=== PATIENT | female | born 1955 | race Caucasian/White ===

== ENCOUNTER 2017-10-16 14:35 | Observation (INO) | payer MEDICARE, SELFPAY ==
[2017-10-16] VITALS (8 sets, daily range): BP systolic 98–144; BP diastolic 62–87; PULSE 59–95; RESP 16–20; TEMP 36.5–36.8; O2SAT 97–100; BMI 42.8; BMI 40.8
[2017-10-16 14:51] LABS: Bedside Glucose 57 mg/dL (70-110)
--- NOTE | 2017-10-16 15:07 | ED.DCSUM_ITS ---
- ER Visit Summary Date of Service: 10/16/17 Chief Complaint: Altered mental status History of Present Illness: The patient is a 62 F who was seen by her home health nurse this morning. When the nurse called her back this afternoon she had slurred speech. The nurse then called 911. EMS arrived and the found the patient in a chair alert and talking to them. Blood sugar was 62. They gave oral glucose and her sugar actually dropped to 47. Patient is having a difficult time telling me anything that is going on. She states that a week and a half ago she lost her voice. Physical Examination: Afebrile vital signs are stable Gen: Well-nourished well-developed morbidly obese Head: Normocephalic atraumatic Eyes: Perrl EOMI ENT: TMs clear no rhinorrhea moist mucous membranes Neck: Supple no lymphadenopathy no JVD nontender CVS: Regular rate rhythm no murmurs normal S1-S2 Respiratory: No distress clear to auscultation bilaterally chest nontender Abdomen: Soft nontender nondistended normal bowel sounds no masses Back: Nontender Extremity: Nontender no edema Skin: Normal color no rash Neuro: alert disorientated. Patient responds to voice. Patient quickly falls asleep. She has slurred speech. She moves all 4 extremities. Test Results: [] Emergency Department Course and Treatment: IV was established by nursing and she was given D50. Impression: 1. Diabetic hypoglycemia This note was generated with [employer] dictation software. It may contain incorrect words, spelling, and punctuation that were not noted in review of the chart prior to signing ED Disposition - Plan for ED Patient: Chief Complaint: Alt LOC Referrals: Bhupendra Oliveira MD [Primary Care Provider] -
[2017-10-16] MEDS: Dextrose 50%-Water 25 GM/50 ML DISP.SYRIN IV (15:09)
[2017-10-16 15:31] LABS: Bedside Glucose 200 mg/dL (70-110)
[2017-10-16 16:16] LABS: Bedside Glucose 107 mg/dL (70-110)
--- NOTE | 2017-10-16 16:21 | CT_ITS ---
STUDY: CT BRAIN WITHOUT CONTRAST REASON FOR EXAM: Female, 62 years old. Slurred speech, low blood sugar. Hx hypertension, diabetes, CVA, cervical cancer. RADIATION DOSAGE (If Supplied By Facility): CTDIvol = ( 44.99 ) mGy, DLP = ( 745.49 ) mGycm TECHNIQUE: Transaxial CT imaging of the brain was performed without administration of intravenous contrast material. Individualized dose optimization techniques were used for this CT. COMPARISON: May 12, 2017, August 27, 2016 FINDINGS: Normal soft tissue structures. Normal calvarium. There is mild cerebral atrophy with widening of the extra-axial spaces and ventricular dilatation. There are areas of decreased attenuation within the white matter tracts of the supratentorial brain, consistent with microvascular disease changes. Normal basal ganglia and thalami. Normal brainstem. Normal cerebellum. There is no intracranial hemorrhage. There are no findings of an acute ischemic infarction. Mucoperiosteal thickening is noted in the right maxillary antrum and in posterior ethmoid air spaces on the right. It appears there has been a prior ostiomeatal complex resection. I note in the right nasal airway it appears that there is a stent. Clinical correlation recommended. This measures approximately 2.2 cm in length as seen on image #16 series 4. Bilateral sphenoid sinus with periosteal thickening noted. Partial opacity is noted in the right mastoid airspace and middle ear cavity. CT/Brain/Head without Contrast IMPRESSION: Chronic involutional changes of the brain. Sinus disease. It appears that there is a stent in the right nasal cavity, clinical correlation recommended. It was present previously dating at least back to August 27, 2016. Electronically Signed: Gin Ardon MD at 17:10 EST Tel , Service support ,
[2017-10-16 16:24] LABS: Absolute Lymphocyte Count 1.19 X10^3/ul (0.83-4.51); Absolute Neutrophil Count 4.4 X10^3/uL (2.0-7.7); Basophil# 0.02 X10^3/uL; Basophil% 0.3 % (0-1); Eosinophil# 0.35 X10^3/uL; Eosinophils% 5.1 % (0-5); Hematocrit 40.4 % (37-47); Hemoglobin 12.6 g/dl (12.0-15.0); Lymphocyte # 1.19 X10^3/ul (4.0); Lymphocyte % 17.2 % (19-41); Mean Corp Hgb Conc 31.2 g/gl (32-36); Mean Corpuscular Hgb 30.1 pg (27.0-32.0); Mean Corpuscular Volume 96.4 fL (81-99); Mean Platelet Vol. 10.8 fl (6.2-12.0); Monocyte# 0.87 X10^3/uL; Monocyte% 12.6 % (0-10); Neutrophil # 4.44 X10^3/uL (2.7-7.7); Neutrophil % 64.4 % (47-70); Platelet Count 262 K/mm3 (150-450); RBC Distribution Width CV 15.1 % (11.6-14.6); RBC Distribution Width SD 52.9 fl (35.1-43.9); Red Blood Count 4.19 M/mm3 (4.2-5.4); White Blood Count 6.9 K/mm3 (4.4-11.0)
[2017-10-16 16:35] LABS: ALB/GLOB Ratio 0.7 RATIO (0.9-2.4); AST(SGOT) 19 U/L (15-37); Alanine Aminotransfer ALT/SGPT 16 U/L (12-78); Albumin, Serum 3.2 g/dL (3.4-5.0); Alkaline Phosphatase 46 U/L (45-117); Anion Gap 7 (5-15); BUN 9 mg/dL (7-18); BUN/Creat Ratio 11.7 RATIO (10-20); Calcium,Total 8.8 mg/dL (8.5-10.1); Chloride 101 mmol/L (98-107); Creatinine, Serum 0.77 mg/dL (0.55-1.02); EST Glomerular Filtration Rate 81 mL/min (>60); Est Glom Filt Rate - Afr Amer 98 mL/min (>60); Estimated Creatinine Clearance 59.91 ml/min; Globulin 4.6 g/dL (2.2-4.2); Glucose 59 mg/dL (70-110); Potassium 3.3 mmol/L (3.5-5.1); Protein, Total 7.8 g/dL (6.4-8.2); Sodium Level 144 mmol/L (136-145)
--- NOTE | 2017-10-16 16:46 | ED.RN ---
PT'S SON JACLYN UPDATED ON PT'S CONDITION, PERMISSION GIVEN FROM PT TO SPEAK TO SON.
[2017-10-16] MEDS: Dext 5%-0.45% NS 1,000 ML 150 ML IV (16:56)
[2017-10-16 17:01] LABS: POSITIVE COUNT NO; POSITIVE DIFFERENTIAL NO; POSITIVE MORPHOLOGY NO
[2017-10-16 17:31] LABS: Bedside Glucose 77 mg/dL (70-110)
--- NOTE | 2017-10-16 17:52 | ED.RN ---
D5 0.45% NS RATE INCREASED TO 200ML/HR PER MD AFTER BLOOD GLUCOSE OF 77. PT SITTING UP IN BED EATING SANDWICH, YOGURT, COOKIES.
[2017-10-16 18:41] LABS: Bedside Glucose 123 mg/dL (70-110)
--- NOTE | 2017-10-16 18:50 | ED.RN ---
[facility] [phone], PLEASE CALL FOR ANY QUESTIONS
--- NOTE | 2017-10-16 19:39 | NURSING ---
Pt does not know medications. Pt's son to bring in med list tonight.
--- NOTE | 2017-10-16 20:33 | PCM.HP.STD ---
Problem List (1) Acute metabolic encephalopathy due to hypoglycemia Status: Acute (2) Acute hypoglycemia Status: Acute (3) Diabetes mellitus type 2 in obese Status: Chronic (4) Coronary arteriosclerosis Status: Chronic Comment: cath 05/2015 mild-moderate disease medical therapy recommended (5) Hypothyroidism Status: Chronic (6) Hyperlipemia Status: Chronic (7) GERD (gastroesophageal reflux disease) Status: Chronic (8) Hypertension Status: Chronic (9) COPD (chronic obstructive pulmonary disease) Status: Chronic (10) Chronic respiratory insufficiency Status: Chronic Comment: On home oxygen at night (11) S/P PTCA (percutaneous transluminal coronary angioplasty) Status: Chronic (12) PARESH (obstructive sleep apnea) Status: Chronic (13) COPD with moderate acute bronchitis Status: Acute History of Present Illness Date of Admission: 10/16/17 Chief Complaint: Hypoglycemia slurred speech. Cough mild short of breath The patient is a 62 year old F with multiple comorbidities including COPD, diabetes mellitus type 2, coronary artery status post stent in 2003, and other comorbidities came to ER with slurred speech and hypoglycemia. This slurred speech was found by the home health nurse and she called 911. EMS found her blood sugar 62. Oral mucosa given blood sugar dropped to 47. Furthermore, patient is having hypoglycemia episodes for last 1-2 weeks has never been doing so that low. Besides that, patient is also mild short of breath and having cough for last 3-4 weeks. She has history of COPD. She had chest x-ray by her PCP and was told no pneumonia but was given Levaquin probably thinking of bronchitis. Denies fever or chills, chest tightness, chest pain or syncope. [] In ED, BMP blood sugar source 59, and after that D50, blood sugar went up to 100 than dropped further to 77. Most recent blood sugar is 123 at 6:30 PM. Past Medical History Past Medical History (Chronic Problems): Chronic Problems Diabetes mellitus type 2 in obese (Chronic) Coronary arteriosclerosis (Chronic) cath 05/2015 mild-moderate disease medical therapy recommended Hypothyroidism (Chronic) Hyperlipemia (Chronic) GERD (gastroesophageal reflux disease) (Chronic) Hypertension (Chronic) COPD (chronic obstructive pulmonary disease) (Chronic) Chronic respiratory insufficiency (Chronic) On home oxygen at night S/P PTCA (percutaneous transluminal coronary angioplasty) (Chronic) PARESH (obstructive sleep apnea) (Chronic) Allergies ciprofloxacin [From Cipro] Allergy (Verified 10/16/17 15:13) Hives ciprofloxacin HCl [From Cipro] Allergy (Verified 10/16/17 15:13) Hives latex Allergy (Verified 10/16/17 15:13) matos me niacin [From Niaspan Extended-Release] Allergy (Verified 10/16/17 15:13) Hives Penicillins Allergy (Verified 10/16/17 15:13) Itching/redness orphenadrine citrate [From Norgesic] Adverse Reaction (Verified 10/16/17 15:13) groggy medical tape Adverse Reaction (Uncoded 10/16/17 15:13) blisters Home Medications: Ambulatory Orders Medication Instructions Recorded Duloxetine Hcl [Cymbalta] 60 mg PO DAILY 06/19/15 Levothyroxine [Synthroid] 100 mcg PO DAILY 06/19/15 Metoprolol Tartrate [Lopressor 50 mg PO BID tablet 04/02/16 (beta sudhakar)] Docusate Sodium [Col-Rite] 100 mg PO DAILY 08/27/16 Metformin HCl [Glucophage] 1,000 mg PO BIDCM 08/27/16 Nitroglycerin [Nitrostat] 0.4 mg SUBLINGUAL Q5M PRN 08/27/16 Omeprazole [Prilosec] 20 mg PO DAILY 08/27/16 Diltiazem CD [Cardizem CD] 180 mg PO DAILY #30 capsule 08/29/16 Aspirin [Aspirin, Baby] 81 mg PO DAILY@0800 09/02/16 Atorvastatin Calcium [Lipitor] 40 mg PO QHS 09/02/16 Furosemide [Lasix] 40 mg PO BID 09/02/16 Ferrous Gluconate 1 tab PO DAILY 01/01/17 Insulin Glargine [Lantus SoloStar 62 unit SQ BID 01/01/17 Pen] Insulin Lispro [Humalog Kwikpen 24 unit SQ 0730,1200 01/01/17 U-200] Isosorbide Mononitrate [Isosorbide 60 tab PO DAILY 01/01/17 Mononitrate ER] Senna [Senokot] 1 tablet PO BID 01/01/17 Apixaban [Eliquis] 2.5 mg PO BID 05/12/17 Ascorbic Acid [Vitamin C] 500 mg PO DAILY@0800 05/12/17 Pregabalin [Lyrica] 100 mg PO TID 05/12/17 Cefadroxil [Duracef] 1,000 mg PO BID #20 capsule 05/14/17 Insulin Lispro [Humalog Kwikpen] 28 unit SQ 1730 06/04/17 Surgical History: angioplasty, cholecystectomy, herniorrhaphy, hysterectomy, - - tubal ligation. 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 Denies: Chills, Fever, Weight Change HEENT: Denies: Head Aches, Sinus Congestion, Sinus Drainage Cardiovascular: Denies: Chest Pain, Palpitations Respiratory: Reports: Cough, Shortness of Breath, Shortness of breath at rest, Shortness of breath upon exertion - Shortness of breath worse on walking even 10 feet., -. Denies: Sputum production Gastrointestinal: Reports: Constipation, - - Abdominal discomfort due to gastroparesis. Denies: Abdominal Pain, Nausea, Vomiting Genitourinary: Denies: Dysuria Musculoskeletal: Reports: Joint Pain, Joint stiffness. Denies: Joint Tenderness Skin: Denies: Rash, Wounds Neurological: Denies: Numbness, Tingling, Focal weakness Psychiatric: Denies: Anxiety, Depression, Homicidal Ideations, Suicidal Ideations Hematologic/ Lymphatic: Denies: Easy Bruising, Easy Bleeding VTE Information - Inpt Only VTE Present on Admission: No VTE Mechan Device Prophylaxis: SCD's VTE Pharm Prophylaxis ordered?: Yes Patient Problems: Active and Suspected Problems Acute metabolic encephalopathy due to hypoglycemia (Acute) Acute hypoglycemia (Acute) COPD with moderate acute bronchitis (Acute) - Physical Exam General: Oriented x3, Cooperative, Lethargic HEENT: Atraumatic, PERRLA, EOMI, Normocephalic Oral: Dry Mucosa Neck: Supple, No JVD, Negative Carotid Bruits Lungs: Diminished, Rhonchi, Wheezes Cardiovascular: Regular rate, No murmurs Abdomen: Bowel Sounds Present, Soft, Non Tender, Non-Distended Extremities: Capillary Refill Less than 3 Seconds, Edema Skin: No rashes, No breakdown Musculoskeletal: No Tenderness to Palpation of Joints or Extremities, Arthritic Changes, Muscle Wasting Neurological: Cranial nerves II-XII grossly intact, Neuro grossly intact Psych/Mental Status: Normal Affect, Appropriate Vital Signs Temp Pulse Resp BP Pulse Ox 98.3 F 65 18 125/62 H 97 10/16/17 20:17 10/16/17 20:17 10/16/17 20:17 10/16/17 20:17 10/16/17 20:17 Oxygen Flow Rate 3 Oxygen Delivery Method Nasal Cannula Weight: 223 lb 3.2 oz Body Mass Index (BMI) 40.8 POC Glucose 10/16/17 18:33 POC Glucose 123 H Assessment/Plan Active and Suspected Problems Acute metabolic encephalopathy due to hypoglycemia (Acute) Acute hypoglycemia (Acute) COPD with moderate acute bronchitis (Acute) The patient is a 62 year old F with multiple comorbidities including COPD, diabetes mellitus type 2, coronary artery status post stent in 2003, and other comorbidities came to ER with slurred speech and hypoglycemia. This slurred speech was found by the home health nurse and she called 911. EMS found her blood sugar 62. Oral mucosa given blood sugar dropped to 47. Furthermore, patient is having hypoglycemia episodes for last 1-2 weeks has never been doing so that low. Besides that, patient is also mild short of breath and having cough for last 3-4 weeks. She has history of COPD. She had chest x-ray by her PCP and was told no pneumonia but was given Levaquin probably thinking of bronchitis. Denies fever or chills, chest tightness, chest pain or syncope. [] In ED, BMP blood sugar source 59, and after that D50, blood sugar went up to 100 than dropped further to 77. Most recent blood sugar is 123 at 6:30 PM. She was admitted last time in April 2017 for acute metabolic encephalopathy due to Enterobacter acute cystitis and sepsis. 1. Acute metabolic encephalopathy due to hypoglycemia: Patient is being admitted on the regular MedSurg floor. Currently patient is on her baseline. Correct underlying cause. 2. Acute on recurrent hypoglycemia due to diabetes mellitus type 2: At this point time, it is exactly not clear why she is having repeated episodes of hypoglycemia as he does not change her dose of insulin or eating habit. Hold antidiabetic agents including insulin. Accu-Chek every 2 hourly until her blood sugar is more than 1 30 mg/dL for 322 times and then every 4 hourly. 3. Diabetes mellitus type 2, uncontrolled, labile: A1c tomorrow a.m. 4. COPD with moderate acute bronchitis: Repeat the chest x-ray PA and lateral. On bronchodilator, DuoNeb every 4 hourly, Mucinex, cough syrup, incentive spirometry, IV Solu-Medrol low dose, influenza test and sputum culture. 5. Coronary artery disease status post Cardiac cath in May 2015 mild-moderate disease medical therapy recommended: Continue home medications 6. Paroxysmal A. fib on apixaban 2.5 mg twice daily. Currently rate is controlled. Twelve-lead EKG ordered. Other multiple comorbidities include chronic hypoxic respiratory failure on home oxygen at night,, paroxysmal A. fib, GERD, dyslipidemia, hypertension, hypothyroidism and obstructive sleep apnea: Multiple comorbidities, functional decline complicates the present care. CODE STATUS: Advanced life directive discussed with the patient. Patient does not have living will. She wants every resuscitative measures including intubation and chest compression. Full code. About 16 minutes time spent for discussion. Patient wants further discussion with her family members. This note was generated with [employer] dictation software. Every effort was made to ensure accuracy, however computerized stone gluer mistakes may persist. Code Visit Inpatient E&M: 31214 Init Hosp L3 Procedures: 56171 Advncd Care Plan 30 Min
--- NOTE | 2017-10-16 20:48 | HP.PCM_ITS ---
Problem List (1) Acute metabolic encephalopathy due to hypoglycemia Status: Acute (2) Acute hypoglycemia Status: Acute (3) Diabetes mellitus type 2 in obese Status: Chronic (4) Coronary arteriosclerosis Status: Chronic Comment: cath 05/2015 mild-moderate disease medical therapy recommended (5) Hypothyroidism Status: Chronic (6) Hyperlipemia Status: Chronic (7) GERD (gastroesophageal reflux disease) Status: Chronic (8) Hypertension Status: Chronic (9) COPD (chronic obstructive pulmonary disease) Status: Chronic (10) Chronic respiratory insufficiency Status: Chronic Comment: On home oxygen at night (11) S/P PTCA (percutaneous transluminal coronary angioplasty) Status: Chronic (12) PARESH (obstructive sleep apnea) Status: Chronic (13) COPD with moderate acute bronchitis Status: Acute History of Present Illness Date of Admission: 10/16/17 Chief Complaint: Hypoglycemia slurred speech. Cough mild short of breath The patient is a 62 year old F with multiple comorbidities including COPD, diabetes mellitus type 2, coronary artery status post stent in 2003, and other comorbidities came to ER with slurred speech and hypoglycemia. This slurred speech was found by the home health nurse and she called 911. EMS found her blood sugar 62. Oral mucosa given blood sugar dropped to 47. Furthermore, patient is having hypoglycemia episodes for last 1-2 weeks has never been doing so that low. Besides that, patient is also mild short of breath and having cough for last 3- 4 weeks. She has history of COPD. She had chest x-ray by her PCP and was told no pneumonia but was given Levaquin probably thinking of bronchitis. Denies fever or chills, chest tightness, chest pain or syncope. [] In ED, BMP blood sugar source 59, and after that D50, blood sugar went up to 100 than dropped further to 77. Most recent blood sugar is 123 at 6:30 PM. Past Medical History Past Medical History (Chronic Problems): Chronic Problems Diabetes mellitus type 2 in obese (Chronic) Coronary arteriosclerosis (Chronic) cath 05/2015 mild-moderate disease medical therapy recommended Hypothyroidism (Chronic) Hyperlipemia (Chronic) GERD (gastroesophageal reflux disease) (Chronic) Hypertension (Chronic) COPD (chronic obstructive pulmonary disease) (Chronic) Chronic respiratory insufficiency (Chronic) On home oxygen at night S/P PTCA (percutaneous transluminal coronary angioplasty) (Chronic) PARESH (obstructive sleep apnea) (Chronic) Allergies ciprofloxacin [From Cipro] Allergy (Verified 10/16/17 15:13) Hives ciprofloxacin HCl [From Cipro] Allergy (Verified 10/16/17 15:13) Hives latex Allergy (Verified 10/16/17 15:13) matos me niacin [From Niaspan Extended-Release] Allergy (Verified 10/16/17 15:13) Hives Penicillins Allergy (Verified 10/16/17 15:13) Itching/redness orphenadrine citrate [From Norgesic] Adverse Reaction (Verified 10/16/17 15:13) groggy medical tape Adverse Reaction (Uncoded 10/16/17 15:13) blisters Home Medications: Ambulatory Orders Medication Instructions Recorded Duloxetine Hcl [Cymbalta] 60 mg PO DAILY 06/19/15 Levothyroxine [Synthroid] 100 mcg PO DAILY 06/19/15 Metoprolol Tartrate [Lopressor 50 mg PO BID tablet 04/02/16 (beta sudhakar)] Docusate Sodium [Col-Rite] 100 mg PO DAILY 08/27/16 Metformin HCl [Glucophage] 1,000 mg PO BIDCM 08/27/16 Nitroglycerin [Nitrostat] 0.4 mg SUBLINGUAL Q5M PRN 08/27/16 Omeprazole [Prilosec] 20 mg PO DAILY 08/27/16 Diltiazem CD [Cardizem CD] 180 mg PO DAILY #30 capsule 08/29/16 Aspirin [Aspirin, Baby] 81 mg PO DAILY@0800 09/02/16 Atorvastatin Calcium [Lipitor] 40 mg PO QHS 09/02/16 Furosemide [Lasix] 40 mg PO BID 09/02/16 Ferrous Gluconate 1 tab PO DAILY 01/01/17 Insulin Glargine [Lantus SoloStar 62 unit SQ BID 01/01/17 Pen] Insulin Lispro [Humalog Kwikpen 24 unit SQ 0730,1200 01/01/17 U-200] Isosorbide Mononitrate [Isosorbide 60 tab PO DAILY 01/01/17 Mononitrate ER] Senna [Senokot] 1 tablet PO BID 01/01/17 Apixaban [Eliquis] 2.5 mg PO BID 05/12/17 Ascorbic Acid [Vitamin C] 500 mg PO DAILY@0800 05/12/17 Pregabalin [Lyrica] 100 mg PO TID 05/12/17 Cefadroxil [Duracef] 1,000 mg PO BID #20 capsule 05/14/17 Insulin Lispro [Humalog Kwikpen] 28 unit SQ 1730 06/04/17 Surgical History: angioplasty, cholecystectomy, herniorrhaphy, hysterectomy, - - tubal ligation. 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 Denies: Chills, Fever, Weight Change HEENT: Denies: Head Aches, Sinus Congestion, Sinus Drainage Cardiovascular: Denies: Chest Pain, Palpitations Respiratory: Reports: Cough, Shortness of Breath, Shortness of breath at rest, Shortness of breath upon exertion - Shortness of breath worse on walking even 10 feet., -. Denies: Sputum production Gastrointestinal: Reports: Constipation, - - Abdominal discomfort due to gastroparesis. Denies: Abdominal Pain, Nausea, Vomiting Genitourinary: Denies: Dysuria Musculoskeletal: Reports: Joint Pain, Joint stiffness. Denies: Joint Tenderness Skin: Denies: Rash, Wounds Neurological: Denies: Numbness, Tingling, Focal weakness Psychiatric: Denies: Anxiety, Depression, Homicidal Ideations, Suicidal Ideations Hematologic/ Lymphatic: Denies: Easy Bruising, Easy Bleeding VTE Information - Inpt Only VTE Present on Admission: No VTE Mechan Device Prophylaxis: SCD's VTE Pharm Prophylaxis ordered?: Yes Patient Problems: Active and Suspected Problems Acute metabolic encephalopathy due to hypoglycemia (Acute) Acute hypoglycemia (Acute) COPD with moderate acute bronchitis (Acute) - Physical Exam General: Oriented x3, Cooperative, Lethargic HEENT: Atraumatic, PERRLA, EOMI, Normocephalic Oral: Dry Mucosa Neck: Supple, No JVD, Negative Carotid Bruits Lungs: Diminished, Rhonchi, Wheezes Cardiovascular: Regular rate, No murmurs Abdomen: Bowel Sounds Present, Soft, Non Tender, Non-Distended Extremities: Capillary Refill Less than 3 Seconds, Edema Skin: No rashes, No breakdown Musculoskeletal: No Tenderness to Palpation of Joints or Extremities, Arthritic Changes, Muscle Wasting Neurological: Cranial nerves II-XII grossly intact, Neuro grossly intact Psych/Mental Status: Normal Affect, Appropriate Vital Signs Temp Pulse Resp BP Pulse Ox 98.3 F 65 18 125/62 H 97 10/16/17 20:17 10/16/17 20:17 10/16/17 20:17 10/16/17 20:17 10/16/17 20:17 Oxygen Flow Rate 3 Oxygen Delivery Method Nasal Cannula Weight: 223 lb 3.2 oz Body Mass Index (BMI) 40.8 POC Glucose 10/16/17 18:33 POC Glucose 123 H Assessment/Plan Active and Suspected Problems Acute metabolic encephalopathy due to hypoglycemia (Acute) Acute hypoglycemia (Acute) COPD with moderate acute bronchitis (Acute) The patient is a 62 year old F with multiple comorbidities including COPD, diabetes mellitus type 2, coronary artery status post stent in 2003, and other comorbidities came to ER with slurred speech and hypoglycemia. This slurred speech was found by the home health nurse and she called 911. EMS found her blood sugar 62. Oral mucosa given blood sugar dropped to 47. Furthermore, patient is having hypoglycemia episodes for last 1-2 weeks has never been doing so that low. Besides that, patient is also mild short of breath and having cough for last 3- 4 weeks. She has history of COPD. She had chest x-ray by her PCP and was told no pneumonia but was given Levaquin probably thinking of bronchitis. Denies fever or chills, chest tightness, chest pain or syncope. [] In ED, BMP blood sugar source 59, and after that D50, blood sugar went up to 100 than dropped further to 77. Most recent blood sugar is 123 at 6:30 PM. She was admitted last time in April 2017 for acute metabolic encephalopathy due to Enterobacter acute cystitis and sepsis. 1. Acute metabolic encephalopathy due to hypoglycemia: Patient is being admitted on the regular MedSurg floor. Currently patient is on her baseline. Correct underlying cause. 2. Acute on recurrent hypoglycemia due to diabetes mellitus type 2: At this point time, it is exactly not clear why she is having repeated episodes of hypoglycemia as he does not change her dose of insulin or eating habit. Hold antidiabetic agents including insulin. Accu-Chek every 2 hourly until her blood sugar is more than 1 30 mg/dL for 322 times and then every 4 hourly. 3. Diabetes mellitus type 2, uncontrolled, labile: A1c tomorrow a.m. 4. COPD with moderate acute bronchitis: Repeat the chest x-ray PA and lateral. On bronchodilator, DuoNeb every 4 hourly, Mucinex, cough syrup, incentive spirometry, IV Solu-Medrol low dose, influenza test and sputum culture. 5. Coronary artery disease status post Cardiac cath in May 2015 mild- moderate disease medical therapy recommended: Continue home medications 6. Paroxysmal A. fib on apixaban 2.5 mg twice daily. Currently rate is controlled. Twelve-lead EKG ordered. Other multiple comorbidities include chronic hypoxic respiratory failure on home oxygen at night,, paroxysmal A. fib, GERD, dyslipidemia, hypertension, hypothyroidism and obstructive sleep apnea: Multiple comorbidities, functional decline complicates the present care. CODE STATUS: Advanced life directive discussed with the patient. Patient does not have living will. She wants every resuscitative measures including intubation and chest compression. Full code. About 16 minutes time spent for discussion. Patient wants further discussion with her family members. This note was generated with [employer] dictation software. Every effort was made to ensure accuracy, however computerized capping machine operator mistakes may persist. Code Visit Inpatient E&M: 60652 Init Hosp L3 Procedures: 55209 Advncd Care Plan 30 Min
--- NOTE | 2017-10-16 21:15 | RAD_ITS ---
STUDY: X-RAY CHEST REASON FOR EXAM: Female, 62 years old. Shortness of breath. TECHNIQUE: PA and lateral views of the chest. COMPARISON: 06/04/2017. FINDINGS: There again are slightly prominent markings but no focal infiltrate is seen. There is no demonstrated pleural abnormality. There is moderate cardiac enlargement. Normal mediastinum and tracie. There is mild prominence of the pulmonary vasculature. There is atherosclerotic calcification of the aortic arch with tortuosity. Extensive Normal visualized ribs, clavicles, and shoulders. There is no demonstrated abnormality of the visualized soft tissue structures of the upper abdomen. RAD/Chest PA and Lateral IMPRESSION: Cardiomegaly and mild pulmonary venous congestion. Electronically Signed: Rudolhp Fonseca MD at 0:15 EST Tel , Service support ,
[2017-10-16 21:46] LABS: Bedside Glucose 141 mg/dL (70-110)
[2017-10-16] MEDS: Ipratropium/Albuterol Sulfate 3 ML AMPUL.NEB INHALATION (22:27)
[2017-10-16] MEDS: APIXABAN 2.5 MG TABLET PO (22:36)
[2017-10-16] MEDS: guaiFENesin/Codeine 5 ML UDC PO (22:36)
[2017-10-16] MEDS: guaiFENesin 1,200 MG Tablet 600 MG PO (22:36)
[2017-10-17] VITALS (8 sets, daily range): BP systolic 132–161; BP diastolic 79–93; PULSE 78–94; RESP 19–20; TEMP 36.6–36.7; O2SAT 96–100
--- NOTE | 2017-10-17 01:32 | CPS ---
Pt noncompliant with CPAP at home, refuses to wear facility CPAP at this time.
[2017-10-17] MEDS: Dext 5%-0.45% NS 1,000 ML 75 ML IV (03:14)
[2017-10-17] MEDS: guaiFENesin/Codeine 5 ML UDC PO ×2 (05:16→08:53)
[2017-10-17 05:21] LABS: Bedside Glucose 206 mg/dL (70-110)
[2017-10-17] MEDS: Ipratropium/Albuterol Sulfate 3 ML AMPUL.NEB INHALATION ×2 (07:01→11:27)
[2017-10-17] MEDS: Sucralfate 1 GM Tablet PO ×2 (07:01→11:56)
[2017-10-17] MEDS: Levothyroxine 100 MCG Tablet PO (07:01)
[2017-10-17 07:31] LABS: Absolute Lymphocyte Count 0.59 X10^3/ul (0.83-4.51); Absolute Neutrophil Count 6.6 X10^3/uL (2.0-7.7); Basophil# 0.02 X10^3/uL; Basophil% 0.3 % (0-1); Differential Indicated SCAN CRITERIA MET; Eosinophil# 0.01 X10^3/uL; Eosinophils% 0.1 % (0-5); Hematocrit 43.1 % (37-47); Hemoglobin 13.5 g/dl (12.0-15.0); Lymphocyte # 0.59 X10^3/ul (4.0); Lymphocyte % 7.9 % (19-41); Mean Corp Hgb Conc 31.3 g/gl (32-36); Mean Corpuscular Hgb 30.5 pg (27.0-32.0); Mean Corpuscular Volume 97.3 fL (81-99); Mean Platelet Vol. 11.2 fl (6.2-12.0); Monocyte# 0.12 X10^3/uL; Monocyte% 1.6 % (0-10); Neutrophil % 88.9 % (47-70); POSITIVE COUNT NO; POSITIVE DIFFERENTIAL YES; POSITIVE MORPHOLOGY NO; Platelet Count 239 K/mm3 (150-450); RBC Distribution Width CV 14.9 % (11.6-14.6); RBC Distribution Width SD 51.2 fl (35.1-43.9); Red Blood Count 4.43 M/mm3 (4.2-5.4); White Blood Count 7.4 K/mm3 (4.4-11.0)
[2017-10-17] MEDS: Docusate Sodium 100 MG Capsule PO (08:49)
[2017-10-17] MEDS: dilTIAZem CD 180 MG Capsule PO (08:49)
[2017-10-17] MEDS: DULoxetine Hcl 60 MG Capsule PO (08:49)
[2017-10-17] MEDS: Ferrous Gluconate 325 MG Tablet PO (08:49)
[2017-10-17] MEDS: APIXABAN 2.5 MG TABLET PO (08:50)
[2017-10-17] MEDS: Metoprolol Tartrate 50 MG Tablet PO (08:50)
[2017-10-17] MEDS: Furosemide 40 MG Tablet PO (08:50)
[2017-10-17] MEDS: Isosorbide Mononitrate 60 MG Tablet PO (08:50)
[2017-10-17] MEDS: Senna Tablet 1 TABLET PO (08:51)
[2017-10-17] MEDS: Pantoprazole Sodium 20 MG Tablet PO (08:51)
[2017-10-17] MEDS: guaiFENesin 1,200 MG Tablet 600 MG PO (08:51)
[2017-10-17] MEDS: Pregabalin 50 MG Capsule 100 MG PO (08:54)
--- NOTE | 2017-10-17 10:17 | DCINST_ITS ---
- Discharge Diagnoses Current Active Problems: Current Active and Chronic Problems Acute metabolic encephalopathy due to hypoglycemia (Acute) Acute hypoglycemia (Acute) COPD with moderate acute bronchitis (Acute) Reason(s) for Visit for Discharge Instructions: Slurred speech, hypoglycemia You will use the following diet at home:: Calorie/Carbohydrate Controlled ( specify 1200, 1400, etc), Cardiac Your food should be the consistency of: Regular Your liquids should be the consistency of: Regular/Thin Discharge Activity: Return to Normal Activity Additional Instructions: Please note changes to your insulin. Keep a strict log of your blood sugars and stick to the prescribed times for insulin administration to prevent stacking up on insulin levels in your body. Continue to use your breathing treatments for SOB Allergies/Adverse Reactions: Allergies ciprofloxacin [From Cipro] Allergy (Verified 10/16/17 15:13) Hives ciprofloxacin HCl [From Cipro] Allergy (Verified 10/16/17 15:13) Hives latex Allergy (Verified 10/16/17 15:13) matos me niacin [From Niaspan Extended-Release] Allergy (Verified 10/16/17 15:13) Hives Penicillins Allergy (Verified 10/16/17 15:13) Itching/redness orphenadrine citrate [From Norgesic] Adverse Reaction (Verified 10/16/17 15:13) groggy medical tape Adverse Reaction (Uncoded 10/16/17 15:13) blisters Medications to take at Discharge Duloxetine Hcl [Cymbalta] 60 mg PO DAILY 06/19/15 Levothyroxine [Synthroid] 100 mcg PO DAILY 06/19/15 Metoprolol Tartrate [Lopressor (beta sudhakar)] 50 mg PO BID tablet 04/02/16 Docusate Sodium [Col-Rite] 100 mg PO DAILY 08/27/16 Metformin HCl [Glucophage] 1,000 mg PO BIDCM 08/27/16 Nitroglycerin [Nitrostat] 0.4 mg SUBLINGUAL Q5M PRN 08/27/16 Omeprazole [Prilosec] 20 mg PO DAILY 08/27/16 Diltiazem CD [Cardizem CD] 180 mg PO DAILY #30 capsule 08/29/16 Aspirin [Aspirin, Baby] 81 mg PO DAILY@0800 09/02/16 Atorvastatin Calcium [Lipitor] 40 mg PO QHS 09/02/16 Furosemide [Lasix] 40 mg PO BID 09/02/16 Ferrous Gluconate 1 tab PO DAILY 01/01/17 Isosorbide Mononitrate [Isosorbide Mononitrate ER] 60 tab PO DAILY 01/01/17 Senna [Senokot] 1 tablet PO BID 01/01/17 Apixaban [Eliquis] 2.5 mg PO BID 05/12/17 Ascorbic Acid [Vitamin C] 500 mg PO DAILY@0800 05/12/17 Pregabalin [Lyrica] 100 mg PO TID 05/12/17 Albuterol Inhaler [Ventolin Hfa] 2 puff INHALATION Q4H PRN PRN 10/16/17 Fluticasone/Salmeterol [Advair 250-50 Diskus] 1 each IH BID 10/16/17 ProMETHAzine [Phenergan] 25 mg PO Q6H PRN PRN 10/16/17 Sucralfate 1 gm PO TID 10/16/17 Azithromycin 500 mg PO DAILY #4 tab 10/17/17 Insulin Glargine [Lantus SoloStar Pen] 60 unit SQ BID #0 10/17/17 Insulin Lispro [Humalog KwikPen] 16 unit SQ BREAKFAST #0 10/17/17 Insulin Lispro [Humalog Kwikpen U-200] 22 unit SQ LUNCH #0 10/17/17 Insulin Lispro [Humalog Kwikpen U-200] 24 unit SQ DINNER #0 10/17/17 Prednisone [Deltasone] 40 mg PO DAILY #5 tab 10/17/17 The following prescriptions were given: Azithromycin 500 mg PO DAILY #4 tab Prednisone [Deltasone] 40 mg PO DAILY #5 tab Orders to be completed after discharge: Basic Metabolic Profile (BMP) Time Frame: 1 Week, Location: Laboratory Primary Care Physician: Bhupendra Oliveira MD [Primary Care Provider] - Please follow up with your Primary Care Physician in: within 2 weeks Proposed Discharge Date: 10/17/17
--- NOTE | 2017-10-17 10:17 | PCM.DC.SUM ---
Discharge Date and Diagnosis Date of Admission: 10/16/17 Date of Discharge: 10/17/17 - Primary Discharge Diagnosis Active and Suspected Problems Acute metabolic encephalopathy due to hypoglycemia (Acute) Acute hypoglycemia (Acute) COPD with moderate acute bronchitis (Acute) - Secondary Discharge Diagnosis Chronic Problems Diabetes mellitus type 2 in obese (Chronic) Coronary arteriosclerosis (Chronic) cath 05/2015 mild-moderate disease medical therapy recommended Hypothyroidism (Chronic) Hyperlipemia (Chronic) GERD (gastroesophageal reflux disease) (Chronic) Hypertension (Chronic) COPD (chronic obstructive pulmonary disease) (Chronic) Chronic respiratory insufficiency (Chronic) On home oxygen at night S/P PTCA (percutaneous transluminal coronary angioplasty) (Chronic) PARESH (obstructive sleep apnea) (Chronic) Hospital Course and Treatment Imaging Results: Clinical Impression(s) from Imaging Studies Brain CT 10/16/17 16:21 IMPRESSION: Chronic involutional changes of the brain. Sinus disease. It appears that there is a stent in the right nasal cavity, clinical correlation recommended. It was present previously dating at least back to August 27, 2016. Electronically Signed: Gin Ardon MD at 17:10 EST Tel , Service support , Chest X-Ray 10/16/17 21:15 IMPRESSION: Cardiomegaly and mild pulmonary venous congestion. Electronically Signed: Rudolph Fonseca MD at 0:15 EST Tel , Service support , None Operations: None Procedures: None Summary of Care Provided: 62 year old F with multiple comorbidities including COPD, diabetes mellitus type 2, coronary artery status post stent in 2003, and other comorbidities admitted to the ED with slurred speech and hypoglycemia. This slurred speech was found by the home health nurse and she called 911. EMS found her blood sugar 62. Oral mucosa given blood sugar dropped to 47. Patient is also mild short of breath and having cough for last 3-4 weeks. Active management was as follows: 1. Acute metabolic encephalopathy due to hypoglycemia, resolved, 2. Acute on recurrent hypoglycemia due to diabetes mellitus type 2, family thinks she is not taking her insulin in the right away and stacking of insulin, she was discharged on a reduced dose of insulin advised to monitor her blood sugars very closely 3. Diabetes mellitus type 2, uncontrolled, labile, needs to follow-up with PCP/wire walker. 4. Acute COPD exacerbation, mild, managed on breathing treatments and IV steroids and discharged on po steroids and azithromycin. Sputum cultures were pending at the time of discharge. 5. Coronary artery disease status post Cardiac cath in May 2015 mild-moderate disease medical therapy recommended, on aspirin, statin: Continue home medications 6. Paroxysmal A. fib, rate controlled, on apixaban 2.5 mg twice daily Discharge Diet: Low fat/ Low Cholesterol, 2000 Calorie Control Diet, 2000 mg Sodium Diet Discharge Activity: Return to Normal Activity Home Medications: Medications to take at Discharge RX: Duloxetine Hcl [Cymbalta] 60 mg PO DAILY 06/19/15 RX: Levothyroxine [Synthroid] 100 mcg PO DAILY 06/19/15 RX: Metoprolol Tartrate [Lopressor (beta sudhakar)] 50 mg PO BID tablet 04/02/16 RX: Docusate Sodium [Col-Rite] 100 mg PO DAILY 08/27/16 RX: Metformin HCl [Glucophage] 1,000 mg PO BIDCM 08/27/16 RX: Nitroglycerin [Nitrostat] 0.4 mg SUBLINGUAL Q5M PRN 08/27/16 RX: Omeprazole [Prilosec] 20 mg PO DAILY 08/27/16 RX: Diltiazem CD [Cardizem CD] 180 mg PO DAILY #30 capsule 08/29/16 RX: Aspirin [Aspirin, Baby] 81 mg PO DAILY@0800 09/02/16 RX: Atorvastatin Calcium [Lipitor] 40 mg PO QHS 09/02/16 RX: Furosemide [Lasix] 40 mg PO BID 09/02/16 RX: Ferrous Gluconate 1 tab PO DAILY 01/01/17 RX: Isosorbide Mononitrate [Isosorbide Mononitrate ER] 60 tab PO DAILY 01/01/17 RX: Senna [Senokot] 1 tablet PO BID 01/01/17 RX: Apixaban [Eliquis] 2.5 mg PO BID 05/12/17 RX: Ascorbic Acid [Vitamin C] 500 mg PO DAILY@0800 05/12/17 RX: Pregabalin [Lyrica] 100 mg PO TID 05/12/17 RX: Albuterol Inhaler [Ventolin Hfa] 2 puff INHALATION Q4H PRN PRN 10/16/17 RX: ProMETHAzine [Phenergan] 25 mg PO Q6H PRN PRN 10/16/17 RX: Sucralfate 1 gm PO TID 10/16/17 RX: Azithromycin 500 mg PO DAILY #4 tab 10/17/17 RX: Insulin Glargine [Lantus SoloStar Pen] 60 unit SQ BID #0 10/17/17 RX: Insulin Lispro [Humalog KwikPen] 16 unit SQ BREAKFAST #0 10/17/17 RX: Insulin Lispro [Humalog Kwikpen U-200] 22 unit SQ LUNCH #0 10/17/17 RX: Insulin Lispro [Humalog Kwikpen U-200] 24 unit SQ DINNER #0 10/17/17 RX: Prednisone [Deltasone] 40 mg PO DAILY #5 tab 10/17/17 Following Prescrptions Were Given to Patient: RX: Azithromycin 500 mg PO DAILY #4 tab RX: Prednisone [Deltasone] 40 mg PO DAILY #5 tab Primary Care Physician: Bhupendra Oliveira MD [Primary Care Provider] - Please follow up with your Primary Care Physician in: within 2 weeks Disposition: Home Minutes spent on discharge:: 25 Patient Condition:: Stable Meaningful Use Info Meaningful Use Diagnoses (Choose all that apply): None applicable Code Visit Inpatient E&M: 35118 Disch Hosp
[2017-10-17 10:29] LABS: Anion Gap 10 (5-15); BUN 11 mg/dL (7-18); BUN/Creat Ratio 14.5 RATIO (10-20); Calcium,Total 8.1 mg/dL (8.5-10.1); Chloride 101 mmol/L (98-107); Creatinine, Serum 0.76 mg/dL (0.55-1.02); EST Glomerular Filtration Rate 82 mL/min (>60); Est Glom Filt Rate - Afr Amer 99 mL/min (>60); Glucose 328 mg/dL (70-110); Potassium 3.9 mmol/L (3.5-5.1); Sodium Level 141 mmol/L (136-145)
--- NOTE | 2017-10-17 10:38 | CASEMGMT ---
SW met w/pt in room in regard to discharge plan and services at home. Pt has Passport, Mary Soriano is her corrections caseworker. Pt has aide services through [facility], 4 hours/day, 6 days/week. Pt has a cane, walker, shower chair, raised toilet seat, O2 through [facility]. Pt plans to return home today, her daughter in law can take her home. SW inquired about her meds, as RN was concerned she is not taking them properly. Pt uses [facility] for her meds and they come prepackaged. SW asked RN, she states she does not think pt is taking her insulin correctly. SW did ask pt if she can see the numbers on her pens and on the meter, pt states she can. Pt confirms she has a meter and strips. SW explained RN is concerned if she is taking her insulin correctly. SW spoke w/pt about the CCN program, pt is open to speaking w/someone about it--as they may be able to assist w/helping pt manage meds. BLAKE also asked pt about LW/POA, pt agreeable to take the papers but is not certain who she wants to put down. She states if she puts her daughters down, her son will be upset. If she puts her daughter in law down, her daughters will be upset. BLAKE did give pt the blank forms. BLAKE also put in a referral for CCN. BLAKE called [facility], message left for Mary and also spoke w/the covering corrections caseworker to let [facility] know pt is going home today. She will call pt's service providers. No further needs are anticipated. LETICIA Chao, COMMERCIAL CARPET INSTALLER
[2017-10-17 12:31] LABS: Bedside Glucose 401 mg/dL (70-110)
[2017-10-17] MEDS: Azithromycin 250 MG Tablet 500 MG PO (13:20)
--- NOTE | 2017-10-20 10:22 | CCN.REFER ---
AGREES TO CCN. HOME VISIT SCHEDULED FOR THIS WEEK.
--- NOTE | 2017-10-29 09:00 | CCN.REFER ---
Several attempts to contact patient with multiple VM left; no return call. RT,MECHANICAL HANDYMAN
== END 2017-10-17 13:15 | disposition home or self-care (01) ==
LOC: ED 16:57 → MS2 18:29
PROVIDERS: Admitting Provider Internal Medicine; Emergency Provider Emergency Medicine; Family Provider Family Medicine; PCP Family Medicine; Visit Provider Internal Medicine
DX: E11.649 Type 2 diabetes mellitus with hypoglycemia without coma (principal); G93.41 Metabolic encephalopathy; J44.0 Chronic obstructive pulmonary disease with (acute) lower respiratory infection; J20.9 Acute bronchitis, unspecified; J44.1 Chronic obstructive pulmonary disease with (acute) exacerbation; I25.10 Atherosclerotic heart disease of native coronary artery without angina pectoris; E66.01 Morbid (severe) obesity due to excess calories; K21.9 Gastro-esophageal reflux disease without esophagitis; G47.33 Obstructive sleep apnea (adult) (pediatric); R47.81 Slurred speech; E78.5 Hyperlipidemia, unspecified; E11.65 Type 2 diabetes mellitus with hyperglycemia; J96.11 Chronic respiratory failure with hypoxia; I48.2 Chronic atrial fibrillation; Z68.41 Body mass index [BMI] 40.0-44.9, adult; Z71.3 Dietary counseling and surveillance; Z99.81 Dependence on supplemental oxygen; Z79.899 Other long term (current) drug therapy; Z79.82 Long term (current) use of aspirin; Z79.4 Long term (current) use of insulin; Z79.01 Long term (current) use of anticoagulants; Z87.891 Personal history of nicotine dependence
CPT/HCPCS: 36415; 70450; 71046; 80048; 80053; 82962; 83880; 85025; 87070; 87077; 87186; 87205; 87804; 94640; 94667; 96361; 96374; 96375; 96376; 97802; 99218; 99285; J7040; A4216; G0378; J7799

== ENCOUNTER → 2017-12-11 11:01 | Outpatient (CLI) | payer MEDICARE, SELFPAY ==
--- NOTE | 2017-12-11 11:03 | HPBI_ITS ---
MAMMOGRAPHY - BILATERAL SCREENING 3-D YAMILETH SYNTHESIS REASON FOR EXAM: Female, 62 years old. Bilateral Screening 3-D tomosynthesis PERTINENT HISTORY: Aunt with breast cancer.. TECHNIQUE: 2-D mammograms and 3-D Yamileth synthesis of the breast (s) were performed. CAD was performed. COMPARISON: 10/17/2016 FINDINGS: The breast composition is composed of scattered fibroglandular density. Scattered benign calcifications are seen. No dense spiculated masses or suspicious microcalcifications are identified. No architectural distortion is identified. There is no skin thickening or retraction. There has been no significant change since the prior study. HPBI/SCREENING MAMM (CAD), BILAT IMPRESSION: No mammographic signs of malignancy. Routine yearly mammograms recommended. ASSESSMENT CATEGORY: BIRADS Category 1: Negative. A letter regarding these results will be sent to the patient by the facility within 30 days. FOLLOW UP RECOMMENDATION: Yearly follow up mammogram recommended. (A) Approximately 10% of breast cancers are not detected by mammography. A normal mammogram should not delay biopsy of a clinically suspicious abnormality. Electronically Signed: Bebo Colorado MD at 8:12 EDT , Service support ,
== END ==
PROVIDERS: Family Provider Family Medicine; PCP Family Medicine; Visit Provider Family Medicine
DX: Z12.31 Encounter for screening mammogram for malignant neoplasm of breast (principal)
CPT/HCPCS: 77063; 77067

== ENCOUNTER → 2017-12-17 06:38 | Outpatient (CLI) | payer MEDICARE, SELFPAY ==
--- NOTE | 2017-12-17 17:01 | STRESSREP ---
Stress Test Report Pharmacologic myocardial perfusion stress test. 62-year-old lady with a history of chest discomfort for preop evaluation. Medications Lipitor Cardizem Lopressor Glucophage Cymbalta. Resting EKG demonstrates atrial fibrillation with a rate of 114 bpm resting blood pressure is 118/70 mmHg. 0.4 mg of regadenoson was infused per usual protocol followed by Intravenous saline flush injection continuous EKG monitoring was performed the patient maintained atrial for ablation throughout the recording the maximum heart rate attained was 131 bpm which was 82% of maximum predicted heart rate the maximum workload attained was 1 metabolic equivalent. At rest there were no ST or T-wave changes noted to suggest abnormal flow reserve nonspecific ST-T wave changes only were noted at peak infusion nonspecific ST-T wave changes were noted. Resting blood pressure is 118/70 mmHg. Myocardial perfusion protocol. 11.8 mCi of technetium 99m sestamibi was injected at rest. 0.4 mg of regadenoson was infused per usual protocol. At peak infusion 34.2 mCi of technetium 99m sestamibi was injected. Stress images were obtained stress and rest images were reconstructed and compared in the short axis vertical long and horizontal long axis. Gated images were also obtained. Perfusion SPECT analysis: Review of the stress images demonstrate a normal cardiac silhouette size. The septum and anterior wall and inferior wu appear to have normal perfusion. The mid to basal lateral wall has a moderate size perfusion defect. This is present on the stress images. The resting images demonstrate a fixed defect in the basal lateral wall but the mid lateral wall improves suggesting a moderate amount of ischemia in this area. Gated SPECT analysis: The gated ejection fraction is 59%. Conclusion: Abnormal pharmacologic myocardial perfusion stress test with evidence of mid lateral ischemia. Small basal lateral fixed defect present Preserved ejection fraction
== END ==
PROVIDERS: Family Provider Family Medicine; PCP Family Medicine; Visit Provider Internal Medicine Cardiovascular Disease
DX: I25.10 Atherosclerotic heart disease of native coronary artery without angina pectoris (principal)
CPT/HCPCS: 78452; 93017; A9500; A4216; J2785

== ENCOUNTER → 2017-12-23 06:49 | Day surgery (SDC) | payer MEDICARE, SELFPAY ==
[2017-12-22 14:29] VITALS: BMI 40.0
--- NOTE | 2017-12-23 09:04 | CL.D_ITS ---
Patient Name: RUI PANDA Study Date: 12/23/2017 Performing: Bao Marvin MD Ht: 61.81 inches 157 cm : 1955 Wt: 218.26 lbs 99 kg Age: 62 Gender: female BSA: 1.98 PROCEDURE(S) PERFORMED LU09-PIE/COR/LV CLINICAL PROFILE AND INDICATIONS Indications: New Onset Angina <= 2 months, Stable Known CAD Heart Failure: None Stress/Imaging Stress Test w/SPECT MPI: Yes Result: Positive Intermediate RiskStress Test with SP ECT MPI: Positive Intermediate Risk Angina Classification Anginal Classification w/in 2 Weeks: CCS IV CAD Presentations: Symptom unlikely to be ischemic. Comorbidities/Risk Factors: Hypertension Dyslipidemia Prior PCI Diabetes Mellitus: Diabetes Therapy: Insulin CONCLUSIONS Single vessel CAD of the LCX, occluded very small LCX with R to L collaterals. Normal Left Ventricular systolic function Non obstructive coronary arteries Cath film from 2014 reviewed which showed relatively similar CAD of LAD and RCA. LCX was patent at t hat time, but was very small and populated area of lateral infarct noted on recent stress test. Pt h ad classical anginal symptoms about 3 months ago which may have represented occlusion of small LCX at at that time. Pt did not seek medical attention at that time. RECOMMENDATIONS Risk factor modification ASA Indefinitely Management as per referring Putty And Patch Worker D/c plavix, start Eliquis on 12/25/17. F/u with Dr Morales Pt is at low risk for non-cardiac surgery. DESCRIPTION OF PROCEDURE The patient arrived to the procedure lab. The risks and benefits of the procedure as well as a full d escription of our services here and current unavailability of surgical backup were fully explained to the patient and/or their significant other prior to the catheterization. The Timeout was completed, verifying the correct patient and procedure. The patient's procedural site was prepped and draped in the usual fashion. Local anesthetic was given subcutaneously to right groin region with Lidocaine 2%. Using a modified Seldinger technique, arterial access was obtained via the right femoral artery, a 4 Fr sheath was inserted Left Coronary Artery selective angiography was performed in multiple views us ing a 4 Fr. JL5 catheter. Right Coronary Artery selective angiography was then performed in multiple views using a 4 Fr. 3DRC catheter. Left Ventriculography was performed in DEL CID projection using a 4 Fr . Pigtail catheter. LV to AO pullback pressures were then recorded.The arterial sheath was pulled and manual compression applied until hemostasis is achieved. CORONARY ANGIOGRAPHY DOMINANCE: Right Dominant LEFT HEART ASSESSMENT Left Ventricular Ejection Fraction: by LV Gram 75 % Normal LV wall motion Normal Left Ventricular systolic function Normal Left Ventricular End Diastolic Pressure LEFT MAIN: 20 % Stenosis LEFT ANTERIOR DECENDING ARTERY: MID LAD: 40 % Stenosis DISTAL LAD: 50 % Stenosis CIRCUMFLEX ARTERY: MID CIRC: is occluded RIGHT CORONARY ARTERY: Mild luminal irregularities less than 30% RT PDA: Proximal - Mild luminal irregularities less than 30% COMPLICATIONS No Complications PROCEDURE MEDICATIONS Oxygen: 3 L/min via nasal cannula SUMMARY OF HEMODYNAMIC DATA Time AIR REST ECG 07:38:59 AO 127/72 (93) SA 08:38:14 LV 125/-11, 10 08:45:08 LV 127/-14, 6 08:45:17 LVp 128/-16, 6 08:45:21 AOp 124/61 (84) 08:45:26 Signed By Bao Marvin MD On 12/23/2017 09:03:47 Bao Marvin MD
== END ==
PROVIDERS: Family Provider Family Medicine; PCP Family Medicine; Visit Provider Internal Medicine Cardiovascular Disease
DX: I25.119 Atherosclerotic heart disease of native coronary artery with unspecified angina pectoris (principal); I48.2 Chronic atrial fibrillation; I13.0 Hypertensive heart and chronic kidney disease with heart failure and stage 1 through stage 4 chronic kidney disease, or unspecified chronic kidney disease; E11.22 Type 2 diabetes mellitus with diabetic chronic kidney disease; N18.9 Chronic kidney disease, unspecified; I50.30 Unspecified diastolic (congestive) heart failure; E78.5 Hyperlipidemia, unspecified; G47.33 Obstructive sleep apnea (adult) (pediatric); Z79.01 Long term (current) use of anticoagulants; Z79.82 Long term (current) use of aspirin; Z79.4 Long term (current) use of insulin; Z79.02 Long term (current) use of antithrombotics/antiplatelets; Z79.899 Other long term (current) drug therapy; Z86.711 Personal history of pulmonary embolism; Z86.718 Personal history of other venous thrombosis and embolism; Z95.5 Presence of coronary angioplasty implant and graft
CPT/HCPCS: 93458; J7040; C1769; C1894; Q9967

== ENCOUNTER 2018-01-02 09:33 | Observation (INO) | payer MEDICARE, SELFPAY ==
[2018-01-02] VITALS (16 sets, daily range): BP systolic 129–157; BP diastolic 73–97; PULSE 81–112; RESP 12–30; TEMP 36.2–37.3; O2SAT 96–100; BMI 43.1; BMI 40.1; BMI 40.2
--- NOTE | 2018-01-02 09:44 | CT_ITS ---
STUDY: CT BRAIN WITHOUT CONTRAST REASON FOR EXAM: Female, 62 years old. Altered mental status. RADIATION DOSAGE (If Supplied By Facility): CTDIvol = ( 44.99 ) mGy, DLP = ( 745.49 ) mGycm TECHNIQUE: Transaxial CT imaging of the brain was performed without administration of intravenous contrast material. Multiplanar reformations are submitted for interpretation. Individualized dose optimization techniques were used for this CT. COMPARISON: CT of the head dated October 16, 2017. FINDINGS: Normal soft tissue structures. Normal calvarium. There is mild cerebral atrophy with widening of the extra-axial spaces and ventricular dilatation. There are areas of decreased attenuation within the white matter tracts of the supratentorial brain, consistent with microvascular disease changes. Normal basal ganglia and thalami. Normal brainstem. There is mild cerebellar atrophy. There is no intracranial hemorrhage. There is moderate atherosclerotic calcification of intracranial arteries. The right frontal sinuses not hypoplastic with thickened wu suggesting sequela of chronic inflammatory process. Appears to be some residual disease in the maxillary sinus possibly representing a mucous retention cyst and/or mucoperiosteal thickening. Patient has had surgical resection of the right ostiomeatal complex and right middle turbinate. Patient appears to have had partial right-sided ethmoidectomies. CT/Brain/Head without Contrast IMPRESSION: 1. Chronic involutional changes of the brain. 2. No CT evidence of acute intracranial hemorrhage. 3. Sequela of extensive paranasal sinus surgery. Electronically Signed: Jelly Davis MD at 11:12 EDT , Service support ,
--- NOTE | 2018-01-02 09:44 | RAD_ITS ---
STUDY: X-RAY CHEST REASON FOR EXAM: Female, 62 years old. Altered mental status. TECHNIQUE: Single AP portable view of the chest. COMPARISON: October 16, 2017. FINDINGS: Cardiac monitoring leads are present. Lungs are underexpanded. There are prominent bronchovascular markings. There is no demonstrated pleural abnormality. There is moderate cardiac enlargement. There are calcified mediastinal and hilar lymph nodes. There is prominence of the pulmonary hilar arteries without peripheral pulmonary vascular congestion. There is atherosclerotic calcification of the aortic arch with tortuosity. There is demineralization of the osseous structures. Normal visualized ribs, clavicles, and shoulders. There is no demonstrated abnormality of the visualized soft tissue structures of the upper abdomen. RAD/Chest 1 View (Portable) IMPRESSION: Cardiomegaly and mild pulmonary congestion similar to previous study. Electronically Signed: Jelly Davis MD at 10:14 EDT , Service support ,
--- NOTE | 2018-01-02 09:45 | EKG12_ITS ---
Test Reason : NERUO Blood Pressure : / mmHG Vent. Rate : 080 BPM Atrial Rate : 394 BPM P-R Int : 000 ms QRS Dur : 080 ms QT Int : 360 ms P-R-T Axes : 000 -20 150 degrees QTc Int : 415 ms Atrial fibrillation with premature ventricular or aberrantly conducted complexes Inferior infarct , age undetermined ST & T wave abnormality, consider lateral ischemia Abnormal ECG Confirmed by ALETA ABRAHAM, ALVAREZ ([id number]), writer editor SHYANNE TERRAZAS ([id number]) on 01/06/2018 1:48:31 PM Referred By: LAURA Confirmed By:ALVAREZ RIVER MD
[2018-01-02 09:46] LABS: Bedside Glucose 148 mg/dL (70-110)
--- NOTE | 2018-01-02 09:51 | ED.DCSUM_ITS ---
- ER Visit Summary Date of Service: 01/02/18 Chief Complaint: Altered mental status History of Present Illness: The patient is a 62 F with an altered mental status. History is difficult as the patient is very somnolent. She arouses easily to voice, but falls right back asleep. She said that her son called 911. She said he lives with her. Patient denies any pain. Denies recent illness or change in her medications. She has had a history of this in the past and has had metabolic encephalopathy and hypoglycemia. She also has obstructive sleep apnea and is not using her BiPAP. She has A. fib and takes Eliquis. Physical Examination: Vital signs unremarkable. Afebrile. 99% on nasal cannula. Somnolent, but arouses to voice. Oriented to person. No focal or lateralizing neurologic abnormalities grossly, but exam is limited due to her somnolence. Head and neck atraumatic. HEENT exam unremarkable. Heart regular. Lungs clear. Abdomen soft. Skin appears pale. Test Results: BGT in the 140s. EKG, labs, urine, head CT, and chest x-ray pending. Emergency Department Course and Treatment: Patient is not hypoglycemic. Her meds may be contributing, but she does not report overdose or taking new medications. I also considered metabolic and infectious causes. Will check head CT, chest x-ray, labs, urinalysis, and EKG. We will also check ABG. Patient is doing well on oxygen and we will continue to monitor. EKG showed relation a rate of 80. Nonspecific ST and T-wave changes. No acute infarction. CBC normal. Sodium 146 and potassium 2.9. Glucose 124. Urinalysis normal. Troponin normal. ABG showed a normal pH with a CO2 of 64.6. Chest x-ray was similar to previous, shows chronic changes. CT head showed chronic changes. Potassium replaced. Patient remained stable, somnolent. Started on BiPAP. Call the hospitalist to admit to the PCU. Treatment Plan: As above Disposition: Admission Impression: 1. Altered mental status, encephalopathy 2. Hypokalemia This note was generated with [employer] software. It may contain incorrect words, spelling, and punctuation that were not noted in review of the chart prior to signing ED Disposition - Plan for ED Patient: Chief Complaint: Neuro S/Sx Referrals: Bhupendra Oliveira MD [Primary Care Provider] -
[2018-01-02 09:58] LABS: Absolute Lymphocyte Count 0.99 X10^3/ul (0.83-4.51); Absolute Neutrophil Count 3.9 X10^3/uL (2.0-7.7); Basophil# 0.02 X10^3/uL; Basophil% 0.3 % (0-1); Eosinophil# 0.28 X10^3/uL; Eosinophils% 4.9 % (0-5); Hematocrit 40.2 % (37-47); Hemoglobin 12.2 g/dl (12.0-15.0); Lymphocyte # 0.99 X10^3/ul (4.0); Lymphocyte % 17.3 % (19-41); Mean Corp Hgb Conc 30.3 g/gl (32-36); Mean Corpuscular Hgb 29.9 pg (27.0-32.0); Mean Corpuscular Volume 98.5 fL (81-99); Mean Platelet Vol. 10.6 fl (6.2-12.0); Monocyte# 0.55 X10^3/uL; Monocyte% 9.6 % (0-10); Neutrophil # 3.87 X10^3/uL (2.7-7.7); Neutrophil % 67.7 % (47-70); Platelet Count 189 K/mm3 (150-450); RBC Distribution Width CV 15.2 % (11.6-14.6); RBC Distribution Width SD 54.9 fl (35.1-43.9); Red Blood Count 4.08 M/mm3 (4.2-5.4); White Blood Count 5.7 K/mm3 (4.4-11.0)
[2018-01-02 09:59] LABS: POSITIVE COUNT NO; POSITIVE DIFFERENTIAL NO; POSITIVE MORPHOLOGY NO
[2018-01-02 10:24] LABS: Anion Gap 4 (5-15); BUN 15 mg/dL (7-18); BUN/Creat Ratio 21.2 RATIO (10-20); Calcium,Total 8.4 mg/dL (8.5-10.1); Chloride 104 mmol/L (98-107); Creatinine, Serum 0.71 mg/dL (0.55-1.02); EST Glomerular Filtration Rate 89 mL/min (>60); Est Glom Filt Rate - Afr Amer 108 mL/min (>60); Estimated Creatinine Clearance 64.98 ml/min; Glucose 124 mg/dL (74-106); Potassium 2.9 mmol/L (3.5-5.1); Sodium Level 146 mmol/L (136-145)
[2018-01-02 10:41] LABS: Base Excess 14 mmol/L (-2 to +2); Bicarbonate 39.2 mmol/L (22-26); Blood Gas Specimen Type ART; O2 Delivery Device Nasal Can; PO2 115 mmHG (75-100); SITE R Radial; SO2 98 % (95-99); Time Given 1035; Total Carbon Dioxide 41 mmol/L; pCO2 64.6 mmHg (35-45); pH 7.39 (7.35-7.45)
[2018-01-02 11:33] LABS: Bacteria 0 SEEN /hpf (None Seen); Mucous, Urine 0 SEEN /hpf (<or=2+); Red Blood Cells-Urine 0 SEEN /hpf (0-5); White Blood Cells 0 SEEN /hpf (0-5)
[2018-01-02 11:35] LABS: Color, Urine Yellow (Yellow); Glucose, Dipstick Normal (Normal); Ketone-Dipstick Negative (Negative); Leukocyte Esterase-Dipstick Negative /ul (Negative); Nitrite-Dipstick Negative (Negative); Occult Blood-Urine Negative /ul (Negative); Protein-Dipstick Negative (Negative); Urine Bilirubin Dipstick Negative (Negative); Urine Clarity Sl. Cloudy (Clear); Urine Urobilinogen Normal (Normal); Urine pH 6.5 (5.0 - 8.0)
[2018-01-02 11:44] LABS: Squamous Epithelial Cells - UA 0-5 SEEN /hpf (5-10)
--- NOTE | 2018-01-02 12:25 | ED.RN ---
unable to accurately obtain med list at this point.
[2018-01-02 15:45] LABS: Bedside Glucose 88 mg/dL (70-110)
[2018-01-02] MEDS: dilTIAZem CD 180 MG Capsule PO (16:17)
[2018-01-02] MEDS: Metoprolol Tartrate 50 MG Tablet PO ×2 (16:17→21:55)
[2018-01-02] MEDS: 0.9% NaCl Peripheral Flush Adult/Peds IV ×2 (16:17→22:03)
--- NOTE | 2018-01-02 16:57 | CPS ---
PATIENT REFUSING BIPAP
--- NOTE | 2018-01-02 17:41 | CPS ---
PATIENT PLACED ON BIPAP AT THIS TIME
--- NOTE | 2018-01-02 17:56 | CPS ---
PATIENT REQUESTING TO GO TO THE RESTROOM.
[2018-01-02 18:11] LABS: Amphetamine Urine VISTA NEGATIVE (<1000 ng/mL); Barbiturate Urine VISTA NEGATIVE (< 200 ng/mL); Benzodiazepine Urine VISTA NEGATIVE (< 200 ng/mL); Cocaine Urine VISTA NEGATIVE (< 300 ng/mL); Ecstacy Urine VISTA NEGATIVE (< 500 ng/mL); Methadone Urine VISTA NEGATIVE (< 300 ng/mL); PCP Urine VISTA NEGATIVE (< 25 ng/mL); THC Urine VISTA NEGATIVE (< 50 ng/mL); Vista UDS pH Range 7
--- NOTE | 2018-01-02 20:17 | CPS ---
pt c/o bipap mask hurting her face. bipap off till bedtime
--- NOTE | 2018-01-02 20:25 | PCM.HP.STD ---
Problem List (1) Mental status alteration Status: Acute Qualifiers: Altered mental status type: somnolence Qualified Code(s): R40.0 - Somnolence (2) Diabetes mellitus type 2 in obese Status: Chronic (3) Coronary arteriosclerosis Status: Chronic Comment: cath 05/2015 mild-moderate disease medical therapy recommended (4) Hypothyroidism Status: Chronic Qualifiers: Hypothyroidism type: acquired Qualified Code(s): E03.9 - Hypothyroidism, unspecified (5) COPD (chronic obstructive pulmonary disease) Status: Chronic Qualifiers: COPD type: emphysema Emphysema type: centrilobular Qualified Code(s): J43.2 - Centrilobular emphysema (6) Chronic respiratory insufficiency Status: Chronic Comment: On home oxygen at night (7) PARESH (obstructive sleep apnea) Status: Chronic History of Present Illness Date of Admission: 01/02/18 Chief Complaint: Confusion / somnolence. Patient is a 62 years old female who was admitted on 01/02/18 for acute mental status change. She was found to be more lethargic at home, reported by her son. She was somnolent in the ED, arousable, but not able to stay awake. Work-up in the ED including CT, CXR, EKG and CBC were unremarkable, however, she was found to have hypokalemia and hypercapnia. BS was normal. She had similar episode in the past, admitted twice in past one year. It was thought to be due to infection at one time, and hypoglycemia for the other. Past Medical History Past Medical History (Chronic Problems): Chronic Problems Diabetes mellitus type 2 in obese (Chronic) Coronary arteriosclerosis (Chronic) cath 05/2015 mild-moderate disease medical therapy recommended Hypothyroidism (Chronic) Hyperlipemia (Chronic) GERD (gastroesophageal reflux disease) (Chronic) Hypertension (Chronic) COPD (chronic obstructive pulmonary disease) (Chronic) Chronic respiratory insufficiency (Chronic) On home oxygen at night S/P PTCA (percutaneous transluminal coronary angioplasty) (Chronic) PARESH (obstructive sleep apnea) (Chronic) Allergies ciprofloxacin [From Cipro] Allergy (Verified 01/02/18 09:39) Hives latex Allergy (Verified 01/02/18 09:39) matos me niacin [From Niaspan Extended-Release] Allergy (Verified 01/02/18 09:39) Hives Penicillins Allergy (Verified 01/02/18 09:39) Itching/redness orphenadrine citrate [From Norgesic] Adverse Reaction (Verified 01/02/18 09:39) groggy medical tape Adverse Reaction (Uncoded 01/02/18 09:39) blisters Home Medications: Ambulatory Orders Medication Instructions Recorded Duloxetine Hcl [Cymbalta] 60 mg PO DAILY 06/19/15 Levothyroxine [Synthroid] 100 mcg PO DAILY 06/19/15 Docusate Sodium [Col-Rite] 100 mg PO DAILY 08/27/16 Metformin HCl [Glucophage] 1,000 mg PO BIDCM 08/27/16 Omeprazole [Prilosec] 20 mg PO DAILY 08/27/16 Aspirin [Aspirin, Baby] 81 mg PO DAILY@0800 09/02/16 Atorvastatin Calcium [Lipitor] 40 mg PO QHS 09/02/16 Ferrous Gluconate 1 tab PO DAILY 01/01/17 Isosorbide Mononitrate [Isosorbide 1.5 tab PO 0800 01/01/17 Mononitrate ER] Apixaban [Eliquis] 2.5 mg PO BID 05/12/17 Ascorbic Acid [Vitamin C] 500 mg PO DAILY@0800 05/12/17 Pregabalin [Lyrica] 100 mg PO TID 05/12/17 Albuterol Inhaler [Ventolin Hfa] 2 puff INHALATION Q4H PRN PRN 10/16/17 Capsaicin 1 applicatio TOPICAL 4X/DAY 12/22/17 Dextrose [Glucose] 4 gm PO PRN PRN 12/22/17 Insulin Glargine [Lantus (BKC)] 70 units SC BID 12/22/17 Insulin Lispro [Humalog KwikPen] 16 unit SQ BREAKFAST 12/22/17 Sennosides [Claudia-Ramila] 1 tab PO DAILY 12/22/17 Clopidogrel Bisulfate [Plavix] 75 mg PO DAILY 12/23/17 Furosemide [Lasix] 40 mg PO BID 12/23/17 Diltiazem CD [Cardizem CD] 180 mg PO DAILY 01/02/18 Insulin Lispro [Humalog Kwikpen 22 unit SQ LUNCH 01/02/18 U-200] Insulin Lispro [Humalog Kwikpen 24 unit SQ DINNER 01/02/18 U-200] Metoprolol Tartrate [Lopressor 50 mg PO BID 01/02/18 (beta sudhakar)] Surgical History: angioplasty, cholecystectomy, herniorrhaphy, hysterectomy, - - tubal ligation. 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 No fever, chills, or change in appetite. HEENT: Unremarkable. Patient denied of any dizziness, chronic headache, blurred vision, double vision, dry mouth, or nasal congestion. CV/respiratory: There is no exertional shortness of breath, chest pain, palpitation, wheezing, cough, claudication, cold feet, or peripheral edema. GI: Patient denied any abdominal pain, nausea, vomiting, diarrhea, constipation, melena, or hematochezia. : Patient denied any significant urinary symptoms. Neurology: Unremarkable. There is no history of seizure as an adult. Psychological: Unremarkable. ?. Endocrine: Unremarkable. Musculoskeletal: Unremarkable. VTE Information - Inpt Only VTE Present on Admission: No VTE Mechan Device Prophylaxis: SCD's VTE Pharm Prophylaxis ordered?: Yes Patient Problems: Active and Suspected Problems Mental status alteration (Acute) Objective: In general, patient is a well-nourished and developed adult. She is somewhat somnolent, but stayed awake most of the time. HEENT: Head is atraumatic, and normocephalic. Pupils are equal, round, and reactive to light and accommodations. Neck is supple. There is no lymphadenopathy, or thyromegaly. Oral mucosa is pink, and moist. There are no lesions. Heart: Auscultation is normal with regular rhythm and rate. There is no extra heart sounds, or murmurs. S1 and S2 are present. Point of maximal impulse is not displaced. Lungs: Diminished breath sounds bilaterally. There is no wheezing, or crackles. Abdomen: Abdominal wall is non-tender, and non-distended. There is no palpable mass or organomegaly. Normoactive bowel sounds are present. Extremities: There is no cyanosis or clubbing. Peripheral pulses are palpable. There is no edema. Skin: There are no any skin discoloration or lesions. Neurological: CN II - XII are intact. Sensory and motor functions are grossly normal with no obvious deficit. Cerebellar functions are within normal range. Gait was not tested. - Physical Exam Vital Signs Temp Pulse Resp BP Pulse Ox 98.3 F 112 H 20 H 138/77 H 96 01/02/18 19:57 01/02/18 19:57 01/02/18 19:57 01/02/18 19:57 01/02/18 19:57 Oxygen Flow Rate (L/min) 3 Oxygen Delivery Method Nasal Cannula Weight: 219 lb 9.286 oz Body Mass Index (BMI) 40.1 Intake and Output for Last 24 Hours 12/31/17 01/01/18 01/02/18 23:59 23:59 23:59 Intake Total 240 / 240 Output Total 670 / 670 Balance -430 / -430 Laboratory Tests Past 24 Hrs 01/02/18 17:15 Urine Opiates Screen NEGATIVE Urine Methadone Screen NEGATIVE Ur Barbiturates Screen NEGATIVE Ur Phencyclidine Scrn NEGATIVE Ur Amphetamines Screen NEGATIVE U Methamphetamin-MDMA NEGATIVE U Benzodiazepines Scrn NEGATIVE Urine Cocaine Screen NEGATIVE U Cannabinoids Screen NEGATIVE Ur Drug Screen Comment POC Glucose 01/02/18 15:26 POC Glucose [address] 01/02/18 09:44 IMPRESSION: 1. Chronic involutional changes of the brain. 2. No CT evidence of acute intracranial hemorrhage. 3. Sequela of extensive paranasal sinus surgery. Electronically Signed: Jelly Davis MD at 11:12 EDT , Service support , Chest X-Ray 01/02/18 09:44 IMPRESSION: Cardiomegaly and mild pulmonary congestion similar to previous study. Electronically Signed: Jelly Davis MD at 10:14 EDT , Service support , Assessment/Plan Active and Suspected Problems Mental status alteration (Acute) Patient is a 62 years old female who was admitted on 01/02/18 for acute mental status change. She was found to be more lethargic at home, reported by her son. She was somnolent in the ED, arousable, but not able to stay awake. Work-up in the ED including CT, CXR, EKG and CBC were unremarkable, however, she was found to have hypokalemia and hypercapnia. BS was normal. She had similar episode in the past, admitted twice in past one year. It was thought to be due to infection at one time, and hypoglycemia for the other. #1 acute mental status change. Etiology is not clear, but she had significant elevation of PCO2 on ABG. Her baseline is 40 to 55, presents with 64. pH 7.39, unremarkable, with PO2 115 with oxygen. HCO3 39. No signs of infectious process. CT of head was unremarkable. Try BiPAP mask, plan to repeat ABG. #2 Hypokalemia. Potassium 2.9. Give IVP KCL and oral K-Dur. Check Mg level in AM. #3 DM II. Hold metformin. Add sliding scale insulin. #4 Hypothyroidism. Continue levothyroxine. #5 COPD / chronic respiratory failure / PARESH. Continue supplemental oxygen. Bronchodilator. Encourage BiPAP for now, but she had refused to wear. VTE prophylaxis: heparin / SCD. GI prophylaxis: PPI po. Patient is full code. Disposition: home in 1 to 2 days. Code Visit Inpatient E&M: 24986 In Hosp L3
--- NOTE | 2018-01-02 20:33 | HP.PCM_ITS ---
Problem List (1) Mental status alteration Status: Acute Qualifiers: Altered mental status type: somnolence Qualified Code(s): R40.0 - Somnolence (2) Diabetes mellitus type 2 in obese Status: Chronic (3) Coronary arteriosclerosis Status: Chronic Comment: cath 05/2015 mild-moderate disease medical therapy recommended (4) Hypothyroidism Status: Chronic Qualifiers: Hypothyroidism type: acquired Qualified Code(s): E03.9 - Hypothyroidism, unspecified (5) COPD (chronic obstructive pulmonary disease) Status: Chronic Qualifiers: COPD type: emphysema Emphysema type: centrilobular Qualified Code(s): J43.2 - Centrilobular emphysema (6) Chronic respiratory insufficiency Status: Chronic Comment: On home oxygen at night (7) PARESH (obstructive sleep apnea) Status: Chronic History of Present Illness Date of Admission: 01/02/18 Chief Complaint: Confusion / somnolence. Patient is a 62 years old female who was admitted on 01/02/18 for acute mental status change. She was found to be more lethargic at home, reported by her son. She was somnolent in the ED, arousable, but not able to stay awake. Work-up in the ED including CT, CXR, EKG and CBC were unremarkable , however, she was found to have hypokalemia and hypercapnia. BS was normal. She had similar episode in the past, admitted twice in past one year. It was thought to be due to infection at one time, and hypoglycemia for the other. Past Medical History Past Medical History (Chronic Problems): Chronic Problems Diabetes mellitus type 2 in obese (Chronic) Coronary arteriosclerosis (Chronic) cath 05/2015 mild-moderate disease medical therapy recommended Hypothyroidism (Chronic) Hyperlipemia (Chronic) GERD (gastroesophageal reflux disease) (Chronic) Hypertension (Chronic) COPD (chronic obstructive pulmonary disease) (Chronic) Chronic respiratory insufficiency (Chronic) On home oxygen at night S/P PTCA (percutaneous transluminal coronary angioplasty) (Chronic) PARESH (obstructive sleep apnea) (Chronic) Allergies ciprofloxacin [From Cipro] Allergy (Verified 01/02/18 09:39) Hives latex Allergy (Verified 01/02/18 09:39) matos me niacin [From Niaspan Extended-Release] Allergy (Verified 01/02/18 09:39) Hives Penicillins Allergy (Verified 01/02/18 09:39) Itching/redness orphenadrine citrate [From Norgesic] Adverse Reaction (Verified 01/02/18 09:39) groggy medical tape Adverse Reaction (Uncoded 01/02/18 09:39) blisters Home Medications: Ambulatory Orders Medication Instructions Recorded Duloxetine Hcl [Cymbalta] 60 mg PO DAILY 06/19/15 Levothyroxine [Synthroid] 100 mcg PO DAILY 06/19/15 Docusate Sodium [Col-Rite] 100 mg PO DAILY 08/27/16 Metformin HCl [Glucophage] 1,000 mg PO BIDCM 08/27/16 Omeprazole [Prilosec] 20 mg PO DAILY 08/27/16 Aspirin [Aspirin, Baby] 81 mg PO DAILY@0800 09/02/16 Atorvastatin Calcium [Lipitor] 40 mg PO QHS 09/02/16 Ferrous Gluconate 1 tab PO DAILY 01/01/17 Isosorbide Mononitrate [Isosorbide 1.5 tab PO 0800 01/01/17 Mononitrate ER] Apixaban [Eliquis] 2.5 mg PO BID 05/12/17 Ascorbic Acid [Vitamin C] 500 mg PO DAILY@0800 05/12/17 Pregabalin [Lyrica] 100 mg PO TID 05/12/17 Albuterol Inhaler [Ventolin Hfa] 2 puff INHALATION Q4H PRN PRN 10/16/17 Capsaicin 1 applicatio TOPICAL 4X/DAY 12/22/17 Dextrose [Glucose] 4 gm PO PRN PRN 12/22/17 Insulin Glargine [Lantus (BKC)] 70 units SC BID 12/22/17 Insulin Lispro [Humalog KwikPen] 16 unit SQ BREAKFAST 12/22/17 Sennosides [Claudia-Ramila] 1 tab PO DAILY 12/22/17 Clopidogrel Bisulfate [Plavix] 75 mg PO DAILY 12/23/17 Furosemide [Lasix] 40 mg PO BID 12/23/17 Diltiazem CD [Cardizem CD] 180 mg PO DAILY 01/02/18 Insulin Lispro [Humalog Kwikpen 22 unit SQ LUNCH 01/02/18 U-200] Insulin Lispro [Humalog Kwikpen 24 unit SQ DINNER 01/02/18 U-200] Metoprolol Tartrate [Lopressor 50 mg PO BID 01/02/18 (beta sudhakar)] Surgical History: angioplasty, cholecystectomy, herniorrhaphy, hysterectomy, - - tubal ligation. 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 No fever, chills, or change in appetite. HEENT: Unremarkable. Patient denied of any dizziness, chronic headache, blurred vision , double vision, dry mouth, or nasal congestion. CV/respiratory: There is no exertional shortness of breath, chest pain, palpitation, wheezing, cough, claudication, cold feet, or peripheral edema. GI: Patient denied any abdominal pain, nausea, vomiting, diarrhea, constipation, melena, or hematochezia. : Patient denied any significant urinary symptoms. Neurology: Unremarkable. There is no history of seizure as an adult. Psychological: Unremarkable. ?. Endocrine: Unremarkable. Musculoskeletal: Unremarkable. VTE Information - Inpt Only VTE Present on Admission: No VTE Mechan Device Prophylaxis: SCD's VTE Pharm Prophylaxis ordered?: Yes Patient Problems: Active and Suspected Problems Mental status alteration (Acute) Objective: In general, patient is a well-nourished and developed adult. She is somewhat somnolent, but stayed awake most of the time. HEENT: Head is atraumatic, and normocephalic. Pupils are equal, round, and reactive to light and accommodations. Neck is supple. There is no lymphadenopathy, or thyromegaly. Oral mucosa is pink, and moist. There are no lesions. Heart: Auscultation is normal with regular rhythm and rate. There is no extra heart sounds, or murmurs. S1 and S2 are present. Point of maximal impulse is not displaced. Lungs: Diminished breath sounds bilaterally. There is no wheezing, or crackles. Abdomen: Abdominal wall is non-tender, and non-distended. There is no palpable mass or organomegaly. Normoactive bowel sounds are present. Extremities: There is no cyanosis or clubbing. Peripheral pulses are palpable. There is no edema. Skin: There are no any skin discoloration or lesions. Neurological: CN II - XII are intact. Sensory and motor functions are grossly normal with no obvious deficit. Cerebellar functions are within normal range. Gait was not tested. - Physical Exam Vital Signs Temp Pulse Resp BP Pulse Ox 98.3 F 112 H 20 H 138/77 H 96 01/02/18 19:57 01/02/18 19:57 01/02/18 19:57 01/02/18 19:57 01/02/18 19:57 Oxygen Flow Rate (L/min) 3 Oxygen Delivery Method Nasal Cannula Weight: 219 lb 9.286 oz Body Mass Index (BMI) 40.1 Intake and Output for Last 24 Hours 12/31/17 01/01/18 01/02/18 23:59 23:59 23:59 Intake Total 240 / 240 Output Total 670 / 670 Balance -430 / -430 Laboratory Tests Past 24 Hrs 01/02/18 17:15 Urine Opiates Screen NEGATIVE Urine Methadone Screen NEGATIVE Ur Barbiturates Screen NEGATIVE Ur Phencyclidine Scrn NEGATIVE Ur Amphetamines Screen NEGATIVE U Methamphetamin-MDMA NEGATIVE U Benzodiazepines Scrn NEGATIVE Urine Cocaine Screen NEGATIVE U Cannabinoids Screen NEGATIVE Ur Drug Screen Comment POC Glucose 01/02/18 15:26 POC Glucose [address] 01/02/18 09:44 IMPRESSION: 1. Chronic involutional changes of the brain. 2. No CT evidence of acute intracranial hemorrhage. 3. Sequela of extensive paranasal sinus surgery. Electronically Signed: Jelly Davis MD at 11:12 EDT , Service support , Chest X-Ray 01/02/18 09:44 IMPRESSION: Cardiomegaly and mild pulmonary congestion similar to previous study. Electronically Signed: Jelly Davis MD at 10:14 EDT , Service support , Assessment/Plan Active and Suspected Problems Mental status alteration (Acute) Patient is a 62 years old female who was admitted on 01/02/18 for acute mental status change. She was found to be more lethargic at home, reported by her son. She was somnolent in the ED, arousable, but not able to stay awake. Work-up in the ED including CT, CXR, EKG and CBC were unremarkable , however, she was found to have hypokalemia and hypercapnia. BS was normal. She had similar episode in the past, admitted twice in past one year. It was thought to be due to infection at one time, and hypoglycemia for the other. #1 acute mental status change. Etiology is not clear, but she had significant elevation of PCO2 on ABG. Her baseline is 40 to 55, presents with 64. pH 7.39, unremarkable, with PO2 115 with oxygen. HCO3 39. No signs of infectious process. CT of head was unremarkable. Try BiPAP mask, plan to repeat ABG. #2 Hypokalemia. Potassium 2.9. Give IVP KCL and oral K-Dur. Check Mg level in AM. #3 DM II. Hold metformin. Add sliding scale insulin. #4 Hypothyroidism. Continue levothyroxine. #5 COPD / chronic respiratory failure / PARESH. Continue supplemental oxygen. Bronchodilator. Encourage BiPAP for now, but she had refused to wear. VTE prophylaxis: heparin / SCD. GI prophylaxis: PPI po. Patient is full code. Disposition: home in 1 to 2 days. Code Visit Inpatient E&M: 72887 In Hosp L3
[2018-01-02] MEDS: Albuterol 2.5 MG/3 ML VIAL.NEB. INHALATION (21:46)
[2018-01-02] MEDS: Pregabalin 50 MG Capsule 100 MG PO (21:55)
[2018-01-02] MEDS: APIXABAN 2.5 MG TABLET PO (21:56)
[2018-01-02] MEDS: Ibuprofen 400 MG Tablet PO (21:56)
[2018-01-02] MEDS: Furosemide 40 MG Tablet PO (21:56)
[2018-01-02] MEDS: Atorvastatin Calcium 40 MG Tablet PO (21:56)
[2018-01-02 23:15] LABS: Bedside Glucose 180 mg/dL (70-110)
[2018-01-03] VITALS (18 sets, daily range): BP systolic 118–168; BP diastolic 47–67; PULSE 39–89; RESP 15–20; TEMP 36.6–37.2; O2SAT 94–99
[2018-01-03] MEDS: Pregabalin 50 MG Capsule 100 MG PO ×3 (07:03→22:36)
[2018-01-03] MEDS: Levothyroxine 100 MCG Tablet PO (07:04)
[2018-01-03 07:15] LABS: Bedside Glucose 101 mg/dL (70-110)
[2018-01-03 07:20] LABS: Hematocrit 37.4 % (37-47); Hemoglobin 11.8 g/dl (12.0-15.0); Mean Corp Hgb Conc 31.6 g/gl (32-36); Mean Corpuscular Hgb 30.9 pg (27.0-32.0); Mean Corpuscular Volume 97.9 fL (81-99); Platelet Count 177 K/mm3 (150-450); RBC Distribution Width CV 15.1 % (11.6-14.6); RBC Distribution Width SD 52.4 fl (35.1-43.9); Red Blood Count 3.82 M/mm3 (4.2-5.4); White Blood Count 7.3 K/mm3 (4.4-11.0)
[2018-01-03 07:21] LABS: Scan Indicated on CBC? Y/N NO
[2018-01-03 07:49] LABS: Anion Gap 5 (5-15); BUN 11 mg/dL (7-18); BUN/Creat Ratio 20.9 RATIO (10-20); Calcium,Total 8.3 mg/dL (8.5-10.1); Chloride 107 mmol/L (98-107); Creatinine, Serum 0.53 mg/dL (0.55-1.02); EST Glomerular Filtration Rate 125 mL/min (>60); Est Glom Filt Rate - Afr Amer 151 mL/min (>60); Estimated Creatinine Clearance 87.04 ml/min; Glucose 103 mg/dL (74-106); Magnesium 1.8 mg/dL (1.6-2.6); Potassium 3.7 mmol/L (3.5-5.1); Sodium Level 146 mmol/L (136-145)
[2018-01-03] MEDS: Ferrous Gluconate 325 MG Tablet PO (08:30)
[2018-01-03] MEDS: Ascorbic Acid 500 MG Tablet PO (08:31)
[2018-01-03] MEDS: Aspirin 81 MG TAB.CHEW PO (08:32)
[2018-01-03] MEDS: Metoprolol Tartrate 50 MG Tablet PO ×2 (10:00→21:09)
[2018-01-03] MEDS: Docusate Sodium 100 MG Capsule PO (10:00)
[2018-01-03] MEDS: dilTIAZem CD 180 MG Capsule PO (10:00)
[2018-01-03] MEDS: Senna Tablet 1 TABLET PO (10:01)
[2018-01-03] MEDS: Isosorbide Mononitrate 60 MG Tablet PO (10:02)
[2018-01-03] MEDS: APIXABAN 2.5 MG TABLET PO ×2 (10:02→21:09)
[2018-01-03] MEDS: Furosemide 40 MG Tablet PO ×2 (10:02→21:09)
[2018-01-03 11:16] LABS: Bedside Glucose 208 mg/dL (70-110)
[2018-01-03 16:20] LABS: Bedside Glucose 153 mg/dL (70-110)
[2018-01-03 16:50] LABS: Allen Test POS; Base Excess 12 mmol/L (-2 to +2); Bicarbonate 35.9 mmol/L (22-26); Blood Gas Specimen Type ART; O2 Delivery Device Nasal Can; PO2 66 mmHG (75-100); SITE L Radial; SO2 94 % (95-99); Time Given 1635; Total Carbon Dioxide 37 mmol/L; pCO2 48.3 mmHg (35-45); pH 7.48 (7.35-7.45)
--- NOTE | 2018-01-03 20:56 | PN_ITS ---
Patient Problems: Active and Suspected Problems Mental status alteration (Acute) Subjective: She is more awake today, carry conversation. She has some slurred speech, but it could be her baseline. - Physical Exam General: Alert, Oriented x3, Cooperative, Well developed, Well nourished HEENT: Atraumatic, PERRLA, Normocephalic Oral: Moist Mucosa Neck: Supple, No JVD Lungs: Diminished Cardiovascular: Regular rate, Regular Rhythm, Normal S1, Normal S2, No murmurs, No Ectopic Activity Abdomen: Bowel Sounds Present, Soft, Non Tender, Non-Distended, Obese Extremities: No clubbing, No cyanosis, No edema Skin: No rashes, No breakdown Musculoskeletal: No Tenderness to Palpation of Joints or Extremities, No Muscle Wasting Lymphatic: No Cervical, Supraclavicular, or Inguinal Adenopathy Neurological: Cranial nerves II-XII grossly intact, Neuro grossly intact Psych/Mental Status: Normal Affect Vital Signs Temp Pulse Resp BP Pulse Ox 98.5 F 68 16 129/53 H 97 01/03/18 20:53 01/03/18 20:53 01/03/18 20:53 01/03/18 20:53 01/03/18 20:53 Oxygen Flow Rate (L/min) 2 Oxygen Delivery Method Nasal Cannula Weight: 219 lb 9.286 oz Body Mass Index (BMI) 40.1 Intake and Output for Last 24 Hours 01/01/18 01/02/18 01/03/18 23:59 23:59 23:59 Intake Total 460 / 460 740 / 740 Output Total 1170 / 1170 1125 / 1125 Balance -710 / -710 -385 / -385 Laboratory Tests Past 24 Hrs 01/03/18 01/03/18 01/03/18 06:34 06:34 16:44 WBC 7.3 RBC 3.82 L Hgb 11.8 L Hct 37.4 MCV 97.9 MCH 30.9 MCHC 31.6 L RDW 15.1 H RDW Differential 52.4 H Plt Count 177 MPV 11.0 Specimen Type ART Sample Site L Radial pH 7.48 H Bicarbonate Actual 35.9 H POC Total CO2 37 Base Excess 12 H O2 Saturation 94 L ABG pCO2 48.3 H ABG pO2 66 L Chap[place] Test POS O2 Delivery Device Nasal Can Liter Flow 2.0 Blood Gas Notified Whom JOSSELYN ABRAHAM Blood Gas Notified Time 1635 Sodium 146 H Potassium 3.7 Chloride 107 Carbon Dioxide 34.0 H Anion Gap 5 BUN 11 Creatinine 0.53 L Estim Creat Clear Calc 87.04 Est GFR (MDRD) Af Amer 151 Est GFR (MDRD) Non-Af 125 BUN/Creatinine Ratio 20.9 H Glucose 103 Calcium 8.3 L Magnesium 1.8 POC Glucose 01/03/18 01/03/18 01/03/18 16:17 11:03 07:09 POC Glucose 153 H 208 H 101 01/02/18 21:49 POC Glucose 180 H Diagnostic Data Brain CT 01/02/18 09:44 IMPRESSION: 1. Chronic involutional changes of the brain. 2. No CT evidence of acute intracranial hemorrhage. 3. Sequela of extensive paranasal sinus surgery. Electronically Signed: Jelly Davis MD at 11:12 EDT , Service support , Chest X-Ray 01/02/18 09:44 IMPRESSION: Cardiomegaly and mild pulmonary congestion similar to previous study. Electronically Signed: Jelly Davis MD at 10:14 EDT , Service support , Medical Necessity - Tobacco Use Smoking Status: Former smoker Assessment/Plan Active and Suspected Problems Mental status alteration (Acute) Patient is a 62 years old female who was admitted on 01/02/18 for acute mental status change. She was found to be more lethargic at home, reported by her son. She was somnolent in the ED, arousable, but not able to stay awake. Work-up in the ED including CT, CXR, EKG and CBC were unremarkable , however, she was found to have hypokalemia and hypercapnia. BS was normal. She had similar episode in the past, admitted twice in past one year. It was thought to be due to infection at one time, and hypoglycemia for the other. #1 acute mental status change. Etiology is not clear, but she had significant elevation of PCO2 on ABG. Her baseline is 40 to 55, presents with 64. pH 7.39, unremarkable, with PO2 115 with oxygen. HCO3 39. No signs of infectious process. CT of head was unremarkable. Urine toxicology negative. She has not been wearing BiPAP, but she is probably at her baseline. Check ABG again to see if she is back to baseline on PCO2. #2 Hypokalemia. Potassium 2.9. Give IVP KCL and oral K-Dur. Mg normal. Monitor BMP. #3 DM II. Hold metformin. Add sliding scale insulin. #4 Hypothyroidism. Continue levothyroxine. #5 COPD / chronic respiratory failure / PARESH. Continue supplemental oxygen. Bronchodilator. Encourage BiPAP for now, but she had refused to wear. VTE prophylaxis: KELLIE morrow. GI prophylaxis: PPI po. Patient is full code. Disposition: home in 1 to 2 days. Code Visit OBSV E&M: 62702 Subsequent observation care L2
[2018-01-03] MEDS: Atorvastatin Calcium 40 MG Tablet PO (21:09)
[2018-01-03] MEDS: Acetaminophen 325 MG Tablet 650 MG PO (21:10)
[2018-01-03 22:50] LABS: Bedside Glucose 158 mg/dL (70-110)
--- NOTE | 2018-01-03 22:50 | NURSING ---
HS ACCU CHECK NOTED AT 158. LEVEMIR 50 UNITS AND NOVOLOG 1 UNIT ORDERED FOR SS AT THIS TIME. VERIFIED WITH DR LAINEZ TO GIVE BOTH INSULINS. RCVD T/O TO GO AHEAD AND GIVE. HS SNACK PROVIDED AND WILL MONITOR PT CLOSELY.
--- NOTE | 2018-01-03 23:00 | CPS ---
pt refused to wear BIPAP tonight
[2018-01-03] MEDS: Albuterol 2.5 MG/3 ML VIAL.NEB. INHALATION (23:12)
--- NOTE | 2018-01-03 23:20 | EKG12_ITS ---
Test Reason : CHEST PRESSURE Blood Pressure : / mmHG Vent. Rate : 076 BPM Atrial Rate : 072 BPM P-R Int : 000 ms QRS Dur : 074 ms QT Int : 456 ms P-R-T Axes : 000 -11 109 degrees QTc Int : 513 ms Atrial fibrillation with premature ventricular or aberrantly conducted complexes Nonspecific T wave abnormality Abnormal ECG Confirmed by EMILY ABRAHAM, NORA ([id number]), food expeditor SHYANNE TERRAZAS ([id number]) on 01/06/2018 3:24:30 PM Referred By: Confirmed By:NORA DIAZ MD
[2018-01-04] VITALS (9 sets, daily range): BP systolic 106–159; BP diastolic 67–79; PULSE 51–114; RESP 15–16; TEMP 36.8–37.1; O2SAT 95–98
--- NOTE | 2018-01-04 00:55 | NURSING ---
2315: PT C/O RIGHT SIDED CHEST PAIN. VERY VAGUE BUT DOES RATE IT 5/10. CURRENTLY RCVNG AEROSOL TX. EKG OBTAINED. AFIB. VSS. PAGED DR LAINEZ AT THIS TIME. NEW ORDERS RCVD TO OBTAIN TROPONIN SERIES.
--- NOTE | 2018-01-04 01:03 | NURSING ---
TROPONIN PENDING AT THIS TIME.
--- NOTE | 2018-01-04 01:55 | NURSING ---
TROPONIN NOTED NEGATIVE.
[2018-01-04 04:01] LABS: Bedside Glucose 121 mg/dL (70-110)
[2018-01-04 04:28] LABS: Hematocrit 37.8 % (37-47); Hemoglobin 11.8 g/dl (12.0-15.0); Mean Corp Hgb Conc 31.2 g/gl (32-36); Mean Corpuscular Hgb 30.3 pg (27.0-32.0); Mean Corpuscular Volume 97.2 fL (81-99); Mean Platelet Vol. 11.4 fl (6.2-12.0); Platelet Count 158 K/mm3 (150-450); RBC Distribution Width CV 15.1 % (11.6-14.6); RBC Distribution Width SD 53.2 fl (35.1-43.9); Red Blood Count 3.89 M/mm3 (4.2-5.4); Scan Indicated on CBC? Y/N NO; White Blood Count 6.8 K/mm3 (4.4-11.0)
[2018-01-04 04:40] LABS: Anion Gap 6 (5-15); BUN 14 mg/dL (7-18); Calcium,Total 8.2 mg/dL (8.5-10.1); Chloride 107 mmol/L (98-107); EST Glomerular Filtration Rate 133 mL/min (>60); Est Glom Filt Rate - Afr Amer 160 mL/min (>60); Estimated Creatinine Clearance 92.27 ml/min; Glucose 116 mg/dL (74-106); Potassium 3.4 mmol/L (3.5-5.1); Sodium Level 143 mmol/L (136-145)
--- NOTE | 2018-01-04 05:08 | NURSING ---
CARDIAC TROPONIN #2 IS NOTED NEGATIVE.
[2018-01-04] MEDS: Pregabalin 50 MG Capsule 100 MG PO ×2 (06:48→15:01)
[2018-01-04] MEDS: Levothyroxine 100 MCG Tablet PO (06:48)
[2018-01-04 06:55] LABS: Bedside Glucose 134 mg/dL (70-110)
[2018-01-04] MEDS: Ascorbic Acid 500 MG Tablet PO (08:52)
[2018-01-04] MEDS: Ferrous Gluconate 325 MG Tablet PO (08:52)
[2018-01-04] MEDS: Aspirin 81 MG TAB.CHEW PO (08:52)
[2018-01-04] MEDS: Furosemide 40 MG Tablet PO (10:12)
[2018-01-04] MEDS: Docusate Sodium 100 MG Capsule PO (10:12)
[2018-01-04] MEDS: Isosorbide Mononitrate 60 MG Tablet PO (10:13)
[2018-01-04] MEDS: dilTIAZem CD 180 MG Capsule PO (10:13)
[2018-01-04] MEDS: APIXABAN 2.5 MG TABLET PO (10:14)
[2018-01-04] MEDS: Senna Tablet 1 TABLET PO (10:15)
[2018-01-04] MEDS: Metoprolol Tartrate 50 MG Tablet PO (10:19)
[2018-01-04] MEDS: guaiFENesin 1,200 MG Tablet 1200 MG PO (10:20)
[2018-01-04 11:35] LABS: Bedside Glucose 307 mg/dL (70-110)
--- NOTE | 2018-01-04 14:49 | DCINST_ITS ---
- Discharge Diagnoses Current Active Problems: Current Active and Chronic Problems Mental status alteration (Acute) You will use the following diet at home:: Calorie/Carbohydrate Controlled ( specify 1200, 1400, etc) - 1999, Cardiac Your food should be the consistency of: Regular Your liquids should be the consistency of: Regular/Thin Discharge Activity: Return to Normal Activity Allergies/Adverse Reactions: Allergies ciprofloxacin [From Cipro] Allergy (Verified 01/02/18 09:39) Hives latex Allergy (Verified 01/02/18 09:39) matos me niacin [From Niaspan Extended-Release] Allergy (Verified 01/02/18 09:39) Hives Penicillins Allergy (Verified 01/02/18 09:39) Itching/redness orphenadrine citrate [From Norgesic] Adverse Reaction (Verified 01/02/18 09:39) groggy medical tape Adverse Reaction (Uncoded 01/02/18 09:39) blisters Medications to take at Discharge Duloxetine Hcl [Cymbalta] 60 mg PO DAILY 06/19/15 Levothyroxine [Synthroid] 100 mcg PO DAILY 06/19/15 Docusate Sodium [Col-Rite] 100 mg PO DAILY 08/27/16 Metformin HCl [Glucophage] 1,000 mg PO BIDCM 08/27/16 Omeprazole [Prilosec] 20 mg PO DAILY 08/27/16 Aspirin [Aspirin, Baby] 81 mg PO DAILY@0809/02/16 Atorvastatin Calcium [Lipitor] 40 mg PO QHS 09/02/16 Ferrous Gluconate 1 tab PO DAILY 01/01/17 Isosorbide Mononitrate [Isosorbide Mononitrate ER] 1.5 tab PO 0800 01/01/17 Apixaban [Eliquis] 2.5 mg PO BID 05/12/17 Ascorbic Acid [Vitamin C] 500 mg PO DAILY@0800 05/12/17 Pregabalin [Lyrica] 100 mg PO TID 05/12/17 Albuterol Inhaler [Ventolin Hfa] 2 puff INHALATION Q4H PRN PRN 10/16/17 Capsaicin 1 applicatio TOPICAL 4X/DAY 12/22/17 Dextrose [Glucose] 4 gm PO PRN PRN 12/22/17 Insulin Glargine [Lantus SoloStar Pen] 70 units SC BID 12/22/17 Insulin Lispro [Humalog KwikPen] 16 unit SQ BREAKFAST 12/22/17 Sennosides [Claudia-Ramila] 1 tab PO DAILY 12/22/17 Clopidogrel Bisulfate [Plavix] 75 mg PO DAILY 12/23/17 Furosemide [Lasix] 40 mg PO BID 12/23/17 Diltiazem CD [Cardizem CD] 180 mg PO DAILY 01/02/18 Insulin Lispro [Humalog Kwikpen U-200] 22 unit SQ LUNCH 01/02/18 Insulin Lispro [Humalog Kwikpen U-200] 24 unit SQ DINNER 01/02/18 Metoprolol Tartrate [Lopressor (beta sudhakar)] 50 mg PO BID 01/02/18 Primary Care Physician: Bhupendra Oliveira MD [Primary Care Provider] - Please follow up with your Primary Care Physician in: 5 to 7 days
--- NOTE | 2018-01-04 14:50 | PCM.DC.SUM ---
Discharge Date and Diagnosis - Problem List Patient Problems: Active and Suspected Problems Mental status alteration (Acute) Date of Admission: 01/02/18 Date of Discharge: 01/04/18 - Primary Discharge Diagnosis Active and Suspected Problems Mental status alteration (Acute) - Secondary Discharge Diagnosis Chronic Problems Diabetes mellitus type 2 in obese (Chronic) Coronary arteriosclerosis (Chronic) cath 05/2015 mild-moderate disease medical therapy recommended Hypothyroidism (Chronic) Hyperlipemia (Chronic) GERD (gastroesophageal reflux disease) (Chronic) Hypertension (Chronic) COPD (chronic obstructive pulmonary disease) (Chronic) Chronic respiratory insufficiency (Chronic) On home oxygen at night S/P PTCA (percutaneous transluminal coronary angioplasty) (Chronic) PARESH (obstructive sleep apnea) (Chronic) Hospital Course and Treatment Imaging Results: Diagnostic Data Brain CT 01/02/18 09:44 IMPRESSION: 1. Chronic involutional changes of the brain. 2. No CT evidence of acute intracranial hemorrhage. 3. Sequela of extensive paranasal sinus surgery. Electronically Signed: Jelly Davis MD at 11:12 EDT , Service support , Chest X-Ray 01/02/18 09:44 IMPRESSION: Cardiomegaly and mild pulmonary congestion similar to previous study. Electronically Signed: Jelly Davis MD at 10:14 EDT , Service support , DIRECT SUPPORT WORKER: None. Operations: None Procedures: None Summary of Care Provided: Patient is a 62 years old female who was admitted on 01/02/18 for acute mental status change. She was found to be more lethargic at home, reported by her son. She was somnolent in the ED, arousable, but not able to stay awake. Work-up in the ED including CT, CXR, EKG and CBC were unremarkable, however, she was found to have hypokalemia and hypercapnia. BS was normal. She had similar episode in the past, admitted twice in past one year. It was thought to be due to infection at one time, and hypoglycemia for the other. #1 acute mental status change. Etiology is not clear, but she had significant elevation of PCO2 on ABG. Her baseline is 40 to 55, presents with 64. pH 7.39, unremarkable, with PO2 115 with oxygen. HCO3 39. No signs of infectious process. CT of head was unremarkable. Urine toxicology negative. ABG was repeated, PCO2 improved to 48, which is in the range of baseline. She has not been wearing BiPAP at all at home. Incidentally, previous episodes of confusion happened in the morning. 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 CO2 retention may be happening during the night associated with sleep apnea. Clinically, she had improved significantly each day, and she is back to baseline. Plan to discharge to home today, Encourage her to wear BiPAP during the night. #2 Hypokalemia. Potassium 2.9. Give IVP KCL and oral K-Dur. Mg normal. Monitor BMP. #3 DM II. Hold metformin. Add sliding scale insulin. #4 Hypothyroidism. Continue levothyroxine. #5 COPD / chronic respiratory failure / PARESH. Continue supplemental oxygen. Bronchodilator. Encourage BiPAP for now, but she had refused to wear. Patient is full code. Disposition: home Discharge Activity: Return to Normal Activity Home Medications: Medications to take at Discharge Duloxetine Hcl [Cymbalta] 60 mg PO DAILY 06/19/15 Levothyroxine [Synthroid] 100 mcg PO DAILY 06/19/15 Docusate Sodium [Col-Rite] 100 mg PO DAILY 08/27/16 Metformin HCl [Glucophage] 1,000 mg PO BIDCM 08/27/16 Omeprazole [Prilosec] 20 mg PO DAILY 08/27/16 Aspirin [Aspirin, Baby] 81 mg PO DAILY@0809/02/16 Atorvastatin Calcium [Lipitor] 40 mg PO QHS 09/02/16 Ferrous Gluconate 1 tab PO DAILY 01/01/17 Isosorbide Mononitrate [Isosorbide Mononitrate ER] 1.5 tab PO 0800 01/01/17 Apixaban [Eliquis] 2.5 mg PO BID 05/12/17 Ascorbic Acid [Vitamin C] 500 mg PO DAILY@0800 05/12/17 Pregabalin [Lyrica] 100 mg PO TID 05/12/17 Albuterol Inhaler [Ventolin Hfa] 2 puff INHALATION Q4H PRN PRN 10/16/17 Capsaicin 1 applicatio TOPICAL 4X/DAY 12/22/17 Dextrose [Glucose] 4 gm PO PRN PRN 12/22/17 Insulin Glargine [Lantus SoloStar Pen] 70 units SC BID 12/22/17 Insulin Lispro [Humalog KwikPen] 16 unit SQ BREAKFAST 12/22/17 Sennosides [Claudia-Ramila] 1 tab PO DAILY 12/22/17 Clopidogrel Bisulfate [Plavix] 75 mg PO DAILY 12/23/17 Furosemide [Lasix] 40 mg PO BID 12/23/17 Diltiazem CD [Cardizem CD] 180 mg PO DAILY 01/02/18 Insulin Lispro [Humalog Kwikpen U-200] 22 unit SQ LUNCH 01/02/18 Insulin Lispro [Humalog Kwikpen U-200] 24 unit SQ DINNER 01/02/18 Metoprolol Tartrate [Lopressor (beta sudhakar)] 50 mg PO BID 01/02/18 Primary Care Physician: Bhupendra Oliveira MD [Primary Care Provider] - Please follow up with your Primary Care Physician in: 5 to 7 days Medical Necessity - Tobacco Use Smoking Status: Former smoker Meaningful Use Info Meaningful Use Diagnoses (Choose all that apply): None applicable Code Visit OBSV E&M: 69509 Observation care discharge
--- NOTE | 2018-01-04 14:56 | DS.PCM_ITS ---
Discharge Date and Diagnosis - Problem List Patient Problems: Active and Suspected Problems Mental status alteration (Acute) Date of Admission: 01/02/18 Date of Discharge: 01/04/18 - Primary Discharge Diagnosis Active and Suspected Problems Mental status alteration (Acute) - Secondary Discharge Diagnosis Chronic Problems Diabetes mellitus type 2 in obese (Chronic) Coronary arteriosclerosis (Chronic) cath 05/2015 mild-moderate disease medical therapy recommended Hypothyroidism (Chronic) Hyperlipemia (Chronic) GERD (gastroesophageal reflux disease) (Chronic) Hypertension (Chronic) COPD (chronic obstructive pulmonary disease) (Chronic) Chronic respiratory insufficiency (Chronic) On home oxygen at night S/P PTCA (percutaneous transluminal coronary angioplasty) (Chronic) PARESH (obstructive sleep apnea) (Chronic) Hospital Course and Treatment Imaging Results: Diagnostic Data Brain CT 01/02/18 09:44 IMPRESSION: 1. Chronic involutional changes of the brain. 2. No CT evidence of acute intracranial hemorrhage. 3. Sequela of extensive paranasal sinus surgery. Electronically Signed: Jelly Davis MD at 11:12 EDT , Service support , Chest X-Ray 01/02/18 09:44 IMPRESSION: Cardiomegaly and mild pulmonary congestion similar to previous study. Electronically Signed: Jelly Davis MD at 10:14 EDT , Service support , ORDER PICKER/ASSEMBLER: None. Operations: None Procedures: None Summary of Care Provided: Patient is a 62 years old female who was admitted on 01/02/18 for acute mental status change. She was found to be more lethargic at home, reported by her son. She was somnolent in the ED, arousable, but not able to stay awake. Work-up in the ED including CT, CXR, EKG and CBC were unremarkable , however, she was found to have hypokalemia and hypercapnia. BS was normal. She had similar episode in the past, admitted twice in past one year. It was thought to be due to infection at one time, and hypoglycemia for the other. #1 acute mental status change. Etiology is not clear, but she had significant elevation of PCO2 on ABG. Her baseline is 40 to 55, presents with 64. pH 7.39, unremarkable, with PO2 115 with oxygen. HCO3 39. No signs of infectious process. CT of head was unremarkable. Urine toxicology negative. ABG was repeated, PCO2 improved to 48, which is in the range of baseline. She has not been wearing BiPAP at all at home. Incidentally, previous episodes of confusion happened in the morning. 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 CO2 retention may be happening during the night associated with sleep apnea. Clinically, she had improved significantly each day, and she is back to baseline. Plan to discharge to home today, Encourage her to wear BiPAP during the night. #2 Hypokalemia. Potassium 2.9. Give IVP KCL and oral K-Dur. Mg normal. Monitor BMP. #3 DM II. Hold metformin. Add sliding scale insulin. #4 Hypothyroidism. Continue levothyroxine. #5 COPD / chronic respiratory failure / PARESH. Continue supplemental oxygen. Bronchodilator. Encourage BiPAP for now, but she had refused to wear. Patient is full code. Disposition: home Discharge Activity: Return to Normal Activity Home Medications: Medications to take at Discharge Duloxetine Hcl [Cymbalta] 60 mg PO DAILY 06/19/15 Levothyroxine [Synthroid] 100 mcg PO DAILY 06/19/15 Docusate Sodium [Col-Rite] 100 mg PO DAILY 08/27/16 Metformin HCl [Glucophage] 1,000 mg PO BIDCM 08/27/16 Omeprazole [Prilosec] 20 mg PO DAILY 08/27/16 Aspirin [Aspirin, Baby] 81 mg PO DAILY@0809/02/16 Atorvastatin Calcium [Lipitor] 40 mg PO QHS 09/02/16 Ferrous Gluconate 1 tab PO DAILY 01/01/17 Isosorbide Mononitrate [Isosorbide Mononitrate ER] 1.5 tab PO 0800 01/01/17 Apixaban [Eliquis] 2.5 mg PO BID 05/12/17 Ascorbic Acid [Vitamin C] 500 mg PO DAILY@0800 05/12/17 Pregabalin [Lyrica] 100 mg PO TID 05/12/17 Albuterol Inhaler [Ventolin Hfa] 2 puff INHALATION Q4H PRN PRN 10/16/17 Capsaicin 1 applicatio TOPICAL 4X/DAY 12/22/17 Dextrose [Glucose] 4 gm PO PRN PRN 12/22/17 Insulin Glargine [Lantus SoloStar Pen] 70 units SC BID 12/22/17 Insulin Lispro [Humalog KwikPen] 16 unit SQ BREAKFAST 12/22/17 Sennosides [Claudia-Ramila] 1 tab PO DAILY 12/22/17 Clopidogrel Bisulfate [Plavix] 75 mg PO DAILY 12/23/17 Furosemide [Lasix] 40 mg PO BID 12/23/17 Diltiazem CD [Cardizem CD] 180 mg PO DAILY 01/02/18 Insulin Lispro [Humalog Kwikpen U-200] 22 unit SQ LUNCH 01/02/18 Insulin Lispro [Humalog Kwikpen U-200] 24 unit SQ DINNER 01/02/18 Metoprolol Tartrate [Lopressor (beta sudhakar)] 50 mg PO BID 01/02/18 Primary Care Physician: Bhupendra Oliveira MD [Primary Care Provider] - Please follow up with your Primary Care Physician in: 5 to 7 days Medical Necessity - Tobacco Use Smoking Status: Former smoker Meaningful Use Info Meaningful Use Diagnoses (Choose all that apply): None applicable Code Visit OBSV E&M: 53936 Observation care discharge
== END 2018-01-04 14:49 | disposition home or self-care (01) ==
LOC: ED 10:34 → PCU 13:44
PROVIDERS: Family Medicine; Admitting Provider Hospitalist; Emergency Provider Emergency Medicine; Family Provider Family Medicine; PCP Family Medicine; Visit Provider Hospitalist
DX: R41.82 Altered mental status, unspecified (principal); E11.9 Type 2 diabetes mellitus without complications; I25.10 Atherosclerotic heart disease of native coronary artery without angina pectoris; E03.9 Hypothyroidism, unspecified; E78.5 Hyperlipidemia, unspecified; K21.9 Gastro-esophageal reflux disease without esophagitis; J44.9 Chronic obstructive pulmonary disease, unspecified; I10 Essential (primary) hypertension; G47.33 Obstructive sleep apnea (adult) (pediatric); R06.89 Other abnormalities of breathing; E87.6 Hypokalemia; J96.12 Chronic respiratory failure with hypercapnia; Z99.81 Dependence on supplemental oxygen; Z79.899 Other long term (current) drug therapy; Z79.82 Long term (current) use of aspirin; Z79.01 Long term (current) use of anticoagulants; Z79.4 Long term (current) use of insulin; Z87.891 Personal history of nicotine dependence
CPT/HCPCS: 36415; 36600; 70450; 71045; 80048; 80307; 81001; 82803; 82962; 83735; 84484; 85025; 85027; 93005; 94002; 94640; 97162; 97166; 97802; 99285; J7040; P9612; A4216

== ENCOUNTER 2018-01-15 03:29 | Emergency (ER) | payer MEDICARE, SELFPAY ==
[2018-01-15 03:31] VITALS: BP 130/75; PULSE 58; RESP 12; TEMP 36.6; O2SAT 98; BMI 40.8
[2018-01-15 03:38] VITALS: O2SAT 99
--- NOTE | 2018-01-15 03:45 | RAD_ITS ---
STUDY: X-RAY CHEST REASON FOR EXAM: Female, 62 years old. Bloody sputum. Coughed up blood tonight. TECHNIQUE: 2 AP portable views of the chest were obtained. COMPARISON: 01/02/2018. FINDINGS: The lungs are clear and mildly under expanded. There is no demonstrated pleural abnormality. Normal size heart. Normal mediastinum and tracie. Normal visualized pulmonary arteries. Normal visualized aortic arch and descending thoracic aorta. There are multilevel degenerative changes of the visualized thoracic spine. Normal visualized ribs, clavicles, and shoulders. There is no demonstrated abnormality of the visualized soft tissue structures of the upper abdomen. RAD/Chest 1 View IMPRESSION: No evidence for acute cardiopulmonary pathology. Electronically Signed: Darrel Mandel MD at 4:25 EDT , Service support ,
--- NOTE | 2018-01-15 04:07 | ED.DCSUM_ITS ---
- ER Visit Summary Date of Service: 01/15/18 Chief Complaint: [] Cough with blood streak in her sputum History of Present Illness: The patient is a 62 F stated she had the above complaint. On and off for 2 weeks she has had a few episodes where she coughs up some sputum with occasional blood tinge. She is on home oxygen. She is on aspirin and Eliquis. Recent admission for CO2 narcosis. Has chronic respiratory insufficiency. Denies any other complaints. Physical Examination: [] Vital signs reviewed General: Well-nourished well-developed Head: Normocephalic atraumatic Eyes: Pupils equal round and reactive to light extraocular movements intact ENT: TMs clear no hemotympanum no trauma Neck: Nontender full range of motion Cardiovascular: Regular rate rhythm no murmurs normal S1-S2 Respiratory: No distress clear to auscultation bilaterally chest nontender Abdomen: Soft nontender nondistended normal bowel sounds no masses Back: Nontender no CVA tenderness Extremities: Nontender active range of motion ?4 extremities no trauma Skin: Normal color no trauma Neuro alert oriented cranial nerves II through XII intact normal strength sensation reflexes Test Results: [] Emergency Department Course and Treatment: [] Chest x-ray shows chronic changes without acute disease. No pulmonary infarcts or other abnormalities. Is likely the blood changes from the fact that she is on blood thinners. She is also taking and dry oxygen. I do not feel she needs a big workup for this. She will follow-up as an outpatient. Treatment Plan: [] Disposition: [] Impression: [] Cough with blood-tinged mucus This note was generated with [employer] dictation software. It may contain incorrect words, spelling, and punctuation that were not noted in review of the chart prior to signing ED Disposition - Plan for ED Patient: Chief Complaint: Cough Referrals: Bhupendra Oliveira MD [Primary Care Provider] -
--- NOTE | 2018-01-15 04:07 | ED.DEP ---
ED Disposition - Plan for ED Patient: Chief Complaint: Cough Instructions: What is COPD? Referrals: Bhupendra Oliveira MD [Primary Care Provider] -
[2018-01-15 04:32] VITALS: BP 125/65; PULSE 67; O2SAT 98
== END 2018-01-15 05:14 | disposition home or self-care (01) ==
PROVIDERS: Emergency Provider Emergency Medicine; Family Provider Family Medicine; PCP Family Medicine
DX: R04.2 Hemoptysis (principal); J44.9 Chronic obstructive pulmonary disease, unspecified; I25.10 Atherosclerotic heart disease of native coronary artery without angina pectoris; E11.9 Type 2 diabetes mellitus without complications; E03.9 Hypothyroidism, unspecified; G47.33 Obstructive sleep apnea (adult) (pediatric); K21.9 Gastro-esophageal reflux disease without esophagitis; E66.9 Obesity, unspecified; Z79.01 Long term (current) use of anticoagulants; Z79.82 Long term (current) use of aspirin; Z79.4 Long term (current) use of insulin; Z79.899 Other long term (current) drug therapy; Z99.81 Dependence on supplemental oxygen
CPT/HCPCS: 71045; 99284

== ENCOUNTER 2018-02-03 15:37 | Inpatient (IN) | payer MEDICARE, SELFPAY ==
[2018-02-03] VITALS (21 sets, daily range): BP systolic 123–143; BP diastolic 63–90; PULSE 97–117; RESP 12–26; TEMP 35.6–37.8; O2SAT 84–100; BMI 40.2; BMI 40.3; BMI 39.6
--- NOTE | 2018-02-03 15:53 | EKG12_ITS ---
Test Reason : SOB Blood Pressure : / mmHG Vent. Rate : 107 BPM Atrial Rate : 141 BPM P-R Int : 000 ms QRS Dur : 088 ms QT Int : 370 ms P-R-T Axes : 000 -17 139 degrees QTc Int : [address] & T wave abnormality, consider lateral ischemia Abnormal ECG Confirmed by ALETA ABRAHAM, ALVAREZ ([id number]), editor publications SHYANNE TERRAZAS ([id number]) on 02/06/2018 2:04:06 PM Referred By: VIVIEN Confirmed By:ALVAREZ RIVER MD
[2018-02-03] MEDS: MethylPREDNISolone 125 MG/2 ML Vial IV (16:00)
[2018-02-03] MEDS: Ipratropium/Albuterol Sulfate 3 ML AMPUL.NEB INHALATION ×3 (16:11→23:54)
[2018-02-03 16:16] LABS: Allen Test POS; Base Excess 13 mmol/L (-2 to +2); Bicarbonate 37.5 mmol/L (22-26); Blood Gas Specimen Type ART; O2 Delivery Device Nasal Can; PO2 74 mmHG (75-100); SITE L Brachial; SO2 95 % (95-99); Time Given 1607; Total Carbon Dioxide 39 mmol/L; pCO2 56.7 mmHg (35-45); pH 7.43 (7.35-7.45)
--- NOTE | 2018-02-03 16:30 | RAD_ITS ---
STUDY: X-RAY CHEST REASON FOR EXAM: Female, 63 years old. Shortness of breath. TECHNIQUE: Single AP portable view of the chest. COMPARISON: January 15, 2018. FINDINGS: Telemetry wires overlie the chest. The lungs are hypoexpanded. The right lung base is partially obscured by overlying soft tissues. No new mass or infiltrate. There is no demonstrated pleural abnormality. Normal size heart. Normal mediastinum and tracie. Normal visualized pulmonary arteries. There is atherosclerotic calcification of the aortic arch with tortuosity. The thoracic spine is obscured by the mediastinum. Normal visualized ribs, clavicles, and shoulders. There is no demonstrated abnormality of the visualized soft tissue structures of the upper abdomen. RAD/Chest 1 View (Portable) IMPRESSION: No acute cardiopulmonary disease or interval change. Electronically Signed: Gurwinder Canela DO at 16:50 EDT Tel [phone], Service support ,
[2018-02-03 16:36] LABS: Absolute Neutrophil Count 7.2 X10^3/uL (2.0-7.7); Basophil# 0.02 X10^3/uL; Basophil% 0.2 % (0-1); Eosinophil# 0.17 X10^3/uL; Eosinophils% 1.9 % (0-5); Hematocrit 36.7 % (37-47); Hemoglobin 11.7 g/dl (12.0-15.0); Lymphocyte % 6.6 % (19-41); Mean Corp Hgb Conc 31.9 g/gl (32-36); Mean Corpuscular Hgb 30.8 pg (27.0-32.0); Mean Corpuscular Volume 96.6 fL (81-99); Mean Platelet Vol. 10.9 fl (6.2-12.0); Monocyte# 1.07 X10^3/uL; Monocyte% 11.8 % (0-10); Neutrophil # 7.22 X10^3/uL (2.7-7.7); Neutrophil % 79.4 % (47-70); Platelet Count 182 K/mm3 (150-450); RBC Distribution Width CV 15.3 % (11.6-14.6); RBC Distribution Width SD 51.2 fl (35.1-43.9); White Blood Count 9.1 K/mm3 (4.4-11.0)
[2018-02-03 16:43] LABS: Anion Gap 6 (5-15); BUN 8 mg/dL (7-18); BUN/Creat Ratio 11.1 RATIO (10-20); Calcium,Total 8.7 mg/dL (8.5-10.1); Chloride 97 mmol/L (98-107); Creatinine, Serum 0.72 mg/dL (0.55-1.02); EST Glomerular Filtration Rate 87 mL/min (>60); Est Glom Filt Rate - Afr Amer 105 mL/min (>60); Estimated Creatinine Clearance 63.25 ml/min; Glucose 104 mg/dL (74-106); Potassium 3.1 mmol/L (3.5-5.1); Sodium Level 140 mmol/L (136-145)
[2018-02-03 16:50] LABS: Lactic Acid 1.6 mmol/L (0.4-2.0)
[2018-02-03 16:57] LABS: Differential Indicated SCAN CRITERIA MET; POSITIVE COUNT NO; POSITIVE DIFFERENTIAL YES; POSITIVE MORPHOLOGY NO
[2018-02-03 17:11] LABS: Differential Comment SCANNED
[2018-02-03 17:28] LABS: Bacteria 0 SEEN /hpf (None Seen); Mucous, Urine 0 SEEN /hpf (<or=2+)
[2018-02-03 17:39] LABS: Color, Urine Yellow (Yellow); Glucose, Dipstick Normal (Normal); Ketone-Dipstick Negative (Negative); Leukocyte Esterase-Dipstick 500 /ul (Negative); Nitrite-Dipstick Negative (Negative); Occult Blood-Urine 25 /ul (Negative); Protein-Dipstick Negative (Negative); Specific Gravity, Urine 1.005 (1.002-1.030); Urine Bilirubin Dipstick Negative (Negative); Urine Clarity Sl. Cloudy (Clear); Urine Urobilinogen 1 mg/dl (Normal)
[2018-02-03 18:09] LABS: Amorphous Sediment 1+ PHOS; Red Blood Cells-Urine 0-5 SEEN /hpf (0-5); Squamous Epithelial Cells - UA 0-5 SEEN /hpf (5-10); White Blood Cells 10-25 SEEN /hpf (0-5)
[2018-02-03] MEDS: levoFLOXacin IV 750 MG/150 ML BAG 100 MG IV (18:34)
--- NOTE | 2018-02-03 19:06 | ED.DCSUM_ITS ---
- ER Visit Summary Date of Service: 02/03/18 Chief Complaint: Shortness of breath and confusion History of Present Illness: The patient is a [address] Oliveira. Family reports that they saw her yesterday and she complained of shortness of breath it was similar to when she has had pneumonia in the past. Today she went to her primary care physician and was confused. Upon arrival to the emergency department the patient is lethargic and not answering any questions. Per family the patient had an EGD and pyloromyotomy 4 days ago at [facility]. Physical Examination: Vitals: 100.0, 123/69, 102, 26, 92% on 3 L nasal cannula which is her home O2. General: Well-nourished and well-developed. Head: Normocephalic atraumatic. Neck: Supple, no lymphadenopathy. No JVD. Nontender. Cardiovascular: Irregular tachycardic rhythm without murmur. Respiratory: Moderate respiratory distress with decreased air movement and wheezing bilaterally. Abdominal: Soft, nontender, nondistended, normal bowel sounds. No guarding, rebound, or peritoneal signs. Back: Nontender. Extremities: Nontender, 1+ pitting edema of her lower extremities bilaterally. Skin: Normal color, no rash. Neurologic: Lethargic, but arouses to voice. Moves all extremities well. Psych: Normal affect. Test Results: EKG is A. fib at [address] changes. There is no significant change from last month. Troponin is negative. Cath UA shows 10-25 white blood cells. Chem-7 is marked potassium 3.1, chloride 97, CO2 37. CBC is remarkable for an H&H of 11.7 36.7, segmented neutrophils 79, lymphocytes 6, monocytes of 12. Lactic acid is 1.6. ABG shows a pH of 7.43 with a bicarb at 37.5 and PCO2 of 56.7. Chest x-ray shows a poor inspiration and rotation. She has elevation of the right hemidiaphragm. Emergency Department Course and Treatment: Patient was placed on BiPAP. She was given albuterol Atrovent aerosols. She was given Solu-Medrol IV. Her sensorium has improved greatly while in the emergency department. Chest x-ray is concerning for a right lower lobe infiltrate in my opinion. Patient has multiple medication allergies. She is given dose Levaquin and vancomycin IV as she was recently in the hospital. Also the patient was prescribed liquid oxycodone following her procedure and some of this may be a encephalopathy secondary to opiates. Treatment Plan: Patient was discussed with Dr. Wright. She will be admitted to the hospital for further relation and treatment. Disposition: Admitted in serious condition. Impression: 1. Respiratory failure on BiPAP. 2. Coagulopathy on Eliquis. 3. 4 days status post EGD and pyloromyotomy. 4. Critical care time 30 minutes. This note was generated with [employer] dictation software. It may contain incorrect words, spelling, and punctuation that were not noted in review of the chart prior to signing ED Disposition - Plan for ED Patient: Chief Complaint: Shortness of Breath
--- NOTE | 2018-02-03 19:12 | PCM.HP.STD ---
Problem List (1) Acute on chronic respiratory failure with hypoxia and hypercapnia Status: Acute (2) COPD exacerbation Status: Acute (3) Possible pneumonia Status: Acute (4) Mental status alteration Status: Acute Qualifiers: (5) COPD with moderate acute bronchitis Status: Acute (6) Acute hypoglycemia Status: Resolved (7) Diabetes mellitus type 2 in obese Status: Chronic (8) Coronary arteriosclerosis Status: Chronic Comment: cath 05/2015 mild-moderate disease medical therapy recommended (9) Hypothyroidism Status: Chronic Qualifiers: (10) Hyperlipemia Status: Chronic (11) GERD (gastroesophageal reflux disease) Status: Chronic (12) Hypertension Status: Chronic (13) COPD (chronic obstructive pulmonary disease) Status: Chronic Qualifiers: (14) Chronic respiratory insufficiency Status: Chronic Comment: On home oxygen at night (15) S/P PTCA (percutaneous transluminal coronary angioplasty) Status: Chronic (16) PARESH (obstructive sleep apnea) Status: Chronic History of Present Illness Date of Admission: 02/03/18 Chief Complaint: Shortness of breath for 2 days. drowsy and lethargic The patient is a 63 year old F with history of COPD, chronic combined respiratory failure on 3 L of home oxygen and obstructive sleep apnea on CPAP was brought to ER for progressive worsening of shortness of breath for 2 days. Patient is very short of breath, drowsy and lethargic and on BiPAP and therefore history taken from patient's son on phone and daughter at bedside and from ER physician Dr Baird. I talked to the patient's son on phone and he said patient also complained of chest tightness, diffuse all over, nonspecific along with worsening of cough. Cough is mainly dry but she brings of clear sputum sometimes. She had EGD and pyloromyotomy 4 days ago and [facility] for severe gastroparesis. [] Past Medical History Past Medical History (Chronic Problems): Chronic Problems Diabetes mellitus type 2 in obese (Chronic) Coronary arteriosclerosis (Chronic) cath 05/2015 mild-moderate disease medical therapy recommended Hypothyroidism (Chronic) Hyperlipemia (Chronic) GERD (gastroesophageal reflux disease) (Chronic) Hypertension (Chronic) COPD (chronic obstructive pulmonary disease) (Chronic) Chronic respiratory insufficiency (Chronic) On home oxygen at night S/P PTCA (percutaneous transluminal coronary angioplasty) (Chronic) PARESH (obstructive sleep apnea) (Chronic) Allergies cephalexin [From Keflex] Allergy (Verified 02/03/18 15:46) Unknown ciprofloxacin [From Cipro] Allergy (Verified 02/03/18 15:46) Hives latex Allergy (Verified 02/03/18 15:46) matos me niacin [From Niaspan Extended-Release] Allergy (Verified 02/03/18 15:46) Hives ondansetron [From Zofran] Allergy (Verified 02/03/18 15:46) Unknown Penicillins Allergy (Verified 02/03/18 15:46) Itching/redness Xanthines Allergy (Verified 02/03/18 15:46) Unknown orphenadrine citrate [From Norgesic] Adverse Reaction (Verified 02/03/18 15:46) groggy medical tape Adverse Reaction (Uncoded 02/03/18 15:46) blisters Home Medications: Ambulatory Orders Medication Instructions Recorded Albuterol Inhaler [Ventolin Hfa 2 puff INHALATION Q4H PRN PRN 02/03/18 (SP)] Apixaban [Eliquis] 2.5 mg PO BID 02/03/18 Ascorbic Acid [Vitamin C] 500 mg PO DAILY@0800 02/03/18 Aspirin [Aspirin, Baby] 81 mg PO DAILY@0800 02/03/18 Atorvastatin Calcium [Lipitor] 40 mg PO QHS 02/03/18 Capsaicin 1 dose TP 4X/DAY 02/03/18 Diltiazem HCl [Cartia Xt] 180 mg PO DAILY 02/03/18 Docusate Sodium [Stool Softener] 100 mg PO DAILY PRN PRN 02/03/18 Duloxetine Hcl [Cymbalta] 60 mg PO DAILY 02/03/18 Estradiol 1 dose VG MOWEFR 02/03/18 Ferrous Gluconate 325 mg PO DAILY@0800 02/03/18 Fluticasone 0.05% [Flonase Nasal 2 spray NASAL DAILY 02/03/18 [place]] Furosemide [Lasix] 40 mg PO BIDLX 02/03/18 Insulin Glargine,Hum.rec.anlog 56 unit SQ BID 02/03/18 [Lantus] Insulin Lispro [Humalog KwikPen] 22 unit SQ LUNCH 02/03/18 Insulin Lispro [Humalog KwikPen] 24 unit SQ DINNER 02/03/18 Insulin Lispro [Humalog] 14 unit SQ BREAKFAST 02/03/18 Isosorbide Mononitrate [Imdur] 90 mg PO DAILY 02/03/18 Levothyroxine [Synthroid] 100 mcg PO DAILY 02/03/18 Metformin HCl [Metformin HCl ER] 1,000 mg PO BID 02/03/18 Metoprolol Tartrate [Lopressor 50 mg PO BID 02/03/18 (beta sudhakar)] Oxycodone HCl [Roxicodone] 5 - 10 mg PO Q4H PRN 02/03/18 Pantoprazole Sodium [Protonix] 40 mg PO BID 02/03/18 Pregabalin [Lyrica] 100 mg PO TID 02/03/18 Sennosides [Claudia-Ramila] 8.6 mg PO BID 02/03/18 Sucralfate [Carafate] 1 gm PO 4X/DAY 02/03/18 proMETHazine tablet [Phenergan 25 mg PO Q6H PRN PRN 02/03/18 tablet] Surgical History: angioplasty, cholecystectomy, herniorrhaphy, hysterectomy, - - tubal ligation. 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 Smoking Status: Former smoker Tobacco Use: Cigarettes - *Family History Maternal History Items: No pertinent history Paternal History Items: Heart Disease, Stroke - age 62 Offspring History Items: No pertinent history - 5 children, 32 grand children and great grandchildren Review of Systems Constitutional: Denies: Chills, Fever Respiratory: Reports: Shortness of Breath, Shortness of breath upon exertion Unable to obtain accurate/complete ROS d/t: Patient is drowsy and lethargic and very short of breath on BiPAP VTE Information - Inpt Only VTE Present on Admission: No VTE Mechan Device Prophylaxis: SCD's VTE Pharm Prophylaxis ordered?: Yes Patient Problems: Active and Suspected Problems Acute on chronic respiratory failure with hypoxia and hypercapnia (Acute) COPD exacerbation (Acute) Possible pneumonia (Acute) - Physical Exam General: Cooperative, Confused, Disoriented, Lethargic HEENT: Atraumatic, PERRLA, EOMI, Normocephalic Oral: Dry Mucosa, - - On BiPAP Neck: Supple, No JVD, Negative Carotid Bruits Lungs: Diminished, Rhonchi, Short of Breath, Tachypneic, Using Accessory Muscles Cardiovascular: Normal S1, Normal S2, No murmurs, Tachycardic Abdomen: Bowel Sounds Present, Soft, Non Tender, Non-Distended Extremities: Capillary Refill Less than 3 Seconds, Edema Skin: No rashes, No breakdown Musculoskeletal: No Tenderness to Palpation of Joints or Extremities, Arthritic Changes, Muscle Wasting Neurological: Cranial nerves II-XII grossly intact, - - Nonspecific lethargic Vital Signs Temp Pulse Resp BP Pulse Ox 100.0 F H 100 25 H 125/82 H 98 02/03/18 15:38 02/03/18 18:04 02/03/18 18:04 02/03/18 18:04 02/03/18 18:04 Assessment/Plan Active and Suspected Problems Acute on chronic respiratory failure with hypoxia and hypercapnia (Acute) COPD exacerbation (Acute) Possible pneumonia (Acute) The patient is a 63 year old F with history of COPD, chronic combined respiratory failure on 3 L of home oxygen and CPAP was brought to ER for progressive worsening of shortness of breath for 2 days. Patient is very short of breath, drowsy and lethargic and on BiPAP and therefore history taken from patient's son on phone and daughter at bedside and from ER physician Dr Baird. I talked to the patient's son on phone and he said patient also complained of chest tightness, diffuse all over, nonspecific along with worsening of cough. Cough is mainly dry but she brings of clear sputum sometimes. She had EGD and pyloromyotomy 4 days ago and [facility] for severe gastroparesis. In ED, patient was found tachypneic, respiratory rate 24, tachycardic heart rate 113, pulse ox 94% on BiPAP. Chest x-ray does not show acute change but soft tissue shadow over right lung lobe obscuring right lung base. EKG shows A. fib at 107 bpm. Patient on Eliquis 2.5 mg twice daily 1. Acute on chronic combined hypoxic and hypercarbic respiratory failure: Patient is being admitted on the stepdown unit. Continue on BiPAP and taper off as per improvement in respiratory distress and pulse oximetry. Bronchodilator, DuoNeb every 4 hourly, IV Solu-Medrol, chest physiotherapy and IV antibiotics. Pulmonary consult. 2. COPD exacerbation most probably due to moderate acute bronchitis: At this time it is not clear it is viral bronchitis or pneumonia exacerbating factor. MRSA nasal screen. Continue medications as mentioned above. 3. Possible viral bronchitis/ healthcare associated pneumonia: Chest x-ray quality is not good. Repeat chest x-ray PA and lateral tomorrow a.m. For clinical suspicion, empirically treat with IV aztreonam and vancomycin for the suspicion of healthcare associated pneumonia as the patient had procedure in [facility] on last Friday as mentioned above. Pneumonia workup with urinary antigens, sputum culture and blood cultures ?2 ordered. 4. Acute encephalopathy possible metabolic/infectious encephalopathy: Treat the underlying cause 5. Diabetes mellitus type 2 with obesity: Accu-Chek before meals and at bedtime and cover with NovoLog sliding scale. 6. Chest tightness with H/o Coronary artery disease: Cardiac enzymes ordered as the patient complained of chest tightness. Patient had cardiac cath in December [address] Marvin. Found to have single-vessel coronary artery disease of left circumflex, occluded very small left circumflex with right to left collateral. LV gram EF 75%. Mid LAD 40%, distal LAD 60% mid circumflex occluded with [id number] collateral. Mid RCA less than 30%, right PDA less than 30%. At that time patient was started on Eliquis in December 2017 and DC Plavix. Follows Dr. Strickland Multiple other comorbidities include coronary artery disease, dyslipidemia, hypothyroidism, hypertension, obstructive sleep apnea on CPAP: Home medication reconciliation done. Clinical Impression(s) from Imaging Studies Chest X-Ray 02/03/18 16:30 IMPRESSION: No acute cardiopulmonary disease or interval change. Electronically Signed: Gurwinder Canela DO at 16:50 EDT Tel [phone], Service support , Laboratory Results 02/03/18 16:00: WBC 9.1, RBC 3.80 L, Hgb 11.7 L, Hct 36.7 L, MCV 96.6, MCH 30.8, MCHC 31.9 L, RDW 15.3 H, RDW Differential 51.2 H, Plt Count 182, MPV 10.9, Immature Gran % (Auto) 0.100, Neut % (Auto) 79.4 H, Lymph % (Auto) 6.6 L, [place] % (Auto) 11.8 H, Eos % (Auto) 1.9, Baso % (Auto) 0.2, Absolute Neuts (auto) 7.2, Absolute Lymphs (auto) 0.60 L, Total Counted Not Reportable, Differential Comment SCANNED 02/03/18 16:00: Sodium 140, Potassium 3.1 L, Chloride 97 L, Carbon Dioxide 37.0 H, Anion Gap 6, BUN 8, Creatinine 0.72, Estim Creat Clear Calc 63.25, Est GFR (MDRD) Af Amer 105, Est GFR (MDRD) Non-Af 87, BUN/Creatinine Ratio 11.1, Glucose 104, Calcium 8.7, Troponin I < 0.015 02/03/18 16:00: Lactic Acid 1.6 02/03/18 16:09: Specimen Type ART, Sample Site L Brachial, pH 7.43, Bicarbonate Actual 37.5 H, POC Total CO2 39, Base Excess 13 H, O2 Saturation 95, ABG pCO2 56.7 H, ABG pO2 74 L, Chapin Test POS, O2 Delivery Device Nasal Can, Liter Flow 2.0, Blood Gas Notified Whom ED MD, Blood Gas Notified Time 1607 02/03/18 17:20: Urine Color Yellow, Urine Clarity Sl. Cloudy, Urine pH 7.0, Ur Specific Palmer 1.005, Urine Protein Negative, Urine Glucose (UA) Normal, Urine Ketones Negative, Urine Occult Blood 25 H, Urine Nitrite Negative, Urine Bilirubin Negative, Urine Urobilinogen 1 H, Ur Leukocyte Esterase 500 H, Urine RBC 0-5 SEEN, Urine WBC 10-25 SEEN, Ur Squamous Epith Cells 0-5 SEEN, Amorphous Sediment 1+ PHOS, Urine Bacteria 0 SEEN, Urine Mucus 0 SEEN Code Visit Inpatient E&M: [id number] Init Hosp L3
--- NOTE | 2018-02-03 19:38 | HP.PCM_ITS ---
Problem List (1) Acute on chronic respiratory failure with hypoxia and hypercapnia Status: Acute (2) COPD exacerbation Status: Acute (3) Possible pneumonia Status: Acute (4) Mental status alteration Status: Acute Qualifiers: (5) COPD with moderate acute bronchitis Status: Acute (6) Acute hypoglycemia Status: Resolved (7) Diabetes mellitus type 2 in obese Status: Chronic (8) Coronary arteriosclerosis Status: Chronic Comment: cath 05/2015 mild-moderate disease medical therapy recommended (9) Hypothyroidism Status: Chronic Qualifiers: (10) Hyperlipemia Status: Chronic (11) GERD (gastroesophageal reflux disease) Status: Chronic (12) Hypertension Status: Chronic (13) COPD (chronic obstructive pulmonary disease) Status: Chronic Qualifiers: (14) Chronic respiratory insufficiency Status: Chronic Comment: On home oxygen at night (15) S/P PTCA (percutaneous transluminal coronary angioplasty) Status: Chronic (16) PARESH (obstructive sleep apnea) Status: Chronic History of Present Illness Date of Admission: 02/03/18 Chief Complaint: Shortness of breath for 2 days. drowsy and lethargic The patient is a 63 year old F with history of COPD, chronic combined respiratory failure on 3 L of home oxygen and obstructive sleep apnea on CPAP was brought to ER for progressive worsening of shortness of breath for 2 days. Patient is very short of breath, drowsy and lethargic and on BiPAP and therefore history taken from patient's son on phone and daughter at bedside and from ER physician Dr Baird. I talked to the patient's son on phone and he said patient also complained of chest tightness, diffuse all over, nonspecific along with worsening of cough. Cough is mainly dry but she brings of clear sputum sometimes. She had EGD and pyloromyotomy 4 days ago and [facility] for severe gastroparesis. [] Past Medical History Past Medical History (Chronic Problems): Chronic Problems Diabetes mellitus type 2 in obese (Chronic) Coronary arteriosclerosis (Chronic) cath 05/2015 mild-moderate disease medical therapy recommended Hypothyroidism (Chronic) Hyperlipemia (Chronic) GERD (gastroesophageal reflux disease) (Chronic) Hypertension (Chronic) COPD (chronic obstructive pulmonary disease) (Chronic) Chronic respiratory insufficiency (Chronic) On home oxygen at night S/P PTCA (percutaneous transluminal coronary angioplasty) (Chronic) PARESH (obstructive sleep apnea) (Chronic) Allergies cephalexin [From Keflex] Allergy (Verified 02/03/18 15:46) Unknown ciprofloxacin [From Cipro] Allergy (Verified 02/03/18 15:46) Hives latex Allergy (Verified 02/03/18 15:46) matos me niacin [From Niaspan Extended-Release] Allergy (Verified 02/03/18 15:46) Hives ondansetron [From Zofran] Allergy (Verified 02/03/18 15:46) Unknown Penicillins Allergy (Verified 02/03/18 15:46) Itching/redness Xanthines Allergy (Verified 02/03/18 15:46) Unknown orphenadrine citrate [From Norgesic] Adverse Reaction (Verified 02/03/18 15:46) groggy medical tape Adverse Reaction (Uncoded 02/03/18 15:46) blisters Home Medications: Ambulatory Orders Medication Instructions Recorded Albuterol Inhaler [Ventolin Hfa 2 puff INHALATION Q4H PRN PRN 02/03/18 (SP)] Apixaban [Eliquis] 2.5 mg PO BID 02/03/18 Ascorbic Acid [Vitamin C] 500 mg PO DAILY@0800 02/03/18 Aspirin [Aspirin, Baby] 81 mg PO DAILY@0800 02/03/18 Atorvastatin Calcium [Lipitor] 40 mg PO QHS 02/03/18 Capsaicin 1 dose TP 4X/DAY 02/03/18 Diltiazem HCl [Cartia Xt] 180 mg PO DAILY 02/03/18 Docusate Sodium [Stool Softener] 100 mg PO DAILY PRN PRN 02/03/18 Duloxetine Hcl [Cymbalta] 60 mg PO DAILY 02/03/18 Estradiol 1 dose VG MOWEFR 02/03/18 Ferrous Gluconate 325 mg PO DAILY@0800 02/03/18 Fluticasone 0.05% [Flonase Nasal 2 spray NASAL DAILY 02/03/18 [place]] Furosemide [Lasix] 40 mg PO BIDLX 02/03/18 Insulin Glargine,Hum.rec.anlog 56 unit SQ BID 02/03/18 [Lantus] Insulin Lispro [Humalog KwikPen] 22 unit SQ LUNCH 02/03/18 Insulin Lispro [Humalog KwikPen] 24 unit SQ DINNER 02/03/18 Insulin Lispro [Humalog] 14 unit SQ BREAKFAST 02/03/18 Isosorbide Mononitrate [Imdur] 90 mg PO DAILY 02/03/18 Levothyroxine [Synthroid] 100 mcg PO DAILY 02/03/18 Metformin HCl [Metformin HCl ER] 1,000 mg PO BID 02/03/18 Metoprolol Tartrate [Lopressor 50 mg PO BID 02/03/18 (beta sudhakar)] Oxycodone HCl [Roxicodone] 5 - 10 mg PO Q4H PRN 02/03/18 Pantoprazole Sodium [Protonix] 40 mg PO BID 02/03/18 Pregabalin [Lyrica] 100 mg PO TID 02/03/18 Sennosides [Claudia-Ramila] 8.6 mg PO BID 02/03/18 Sucralfate [Carafate] 1 gm PO 4X/DAY 02/03/18 proMETHazine tablet [Phenergan 25 mg PO Q6H PRN PRN 02/03/18 tablet] Surgical History: angioplasty, cholecystectomy, herniorrhaphy, hysterectomy, - - tubal ligation. 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 Smoking Status: Former smoker Tobacco Use: Cigarettes - *Family History Maternal History Items: No pertinent history Paternal History Items: Heart Disease, Stroke - age 62 Offspring History Items: No pertinent history - 5 children, 32 grand children and great grandchildren Review of Systems Constitutional: Denies: Chills, Fever Respiratory: Reports: Shortness of Breath, Shortness of breath upon exertion Unable to obtain accurate/complete ROS d/t: Patient is drowsy and lethargic and very short of breath on BiPAP VTE Information - Inpt Only VTE Present on Admission: No VTE Mechan Device Prophylaxis: SCD's VTE Pharm Prophylaxis ordered?: Yes Patient Problems: Active and Suspected Problems Acute on chronic respiratory failure with hypoxia and hypercapnia (Acute) COPD exacerbation (Acute) Possible pneumonia (Acute) - Physical Exam General: Cooperative, Confused, Disoriented, Lethargic HEENT: Atraumatic, PERRLA, EOMI, Normocephalic Oral: Dry Mucosa, - - On BiPAP Neck: Supple, No JVD, Negative Carotid Bruits Lungs: Diminished, Rhonchi, Short of Breath, Tachypneic, Using Accessory Muscles Cardiovascular: Normal S1, Normal S2, No murmurs, Tachycardic Abdomen: Bowel Sounds Present, Soft, Non Tender, Non-Distended Extremities: Capillary Refill Less than 3 Seconds, Edema Skin: No rashes, No breakdown Musculoskeletal: No Tenderness to Palpation of Joints or Extremities, Arthritic Changes, Muscle Wasting Neurological: Cranial nerves II-XII grossly intact, - - Nonspecific lethargic Vital Signs Temp Pulse Resp BP Pulse Ox 100.0 F H 100 25 H 125/82 H 98 02/03/18 15:38 02/03/18 18:04 02/03/18 18:04 02/03/18 18:04 02/03/18 18:04 Assessment/Plan Active and Suspected Problems Acute on chronic respiratory failure with hypoxia and hypercapnia (Acute) COPD exacerbation (Acute) Possible pneumonia (Acute) The patient is a 63 year old F with history of COPD, chronic combined respiratory failure on 3 L of home oxygen and CPAP was brought to ER for progressive worsening of shortness of breath for 2 days. Patient is very short of breath, drowsy and lethargic and on BiPAP and therefore history taken from patient's son on phone and daughter at bedside and from ER physician Dr Baird. I talked to the patient's son on phone and he said patient also complained of chest tightness, diffuse all over, nonspecific along with worsening of cough. Cough is mainly dry but she brings of clear sputum sometimes. She had EGD and pyloromyotomy 4 days ago and [facility] for severe gastroparesis. In ED, patient was found tachypneic, respiratory rate 24, tachycardic heart rate 113, pulse ox 94% on BiPAP. Chest x-ray does not show acute change but soft tissue shadow over right lung lobe obscuring right lung base. EKG shows A. fib at 107 bpm. Patient on Eliquis 2.5 mg twice daily 1. Acute on chronic combined hypoxic and hypercarbic respiratory failure: Patient is being admitted on the stepdown unit. Continue on BiPAP and taper off as per improvement in respiratory distress and pulse oximetry. Bronchodilator, DuoNeb every 4 hourly, IV Solu-Medrol, chest physiotherapy and IV antibiotics. Pulmonary consult. 2. COPD exacerbation most probably due to moderate acute bronchitis: At this time it is not clear it is viral bronchitis or pneumonia exacerbating factor. MRSA nasal screen. Continue medications as mentioned above. 3. Possible viral bronchitis/ healthcare associated pneumonia: Chest x-ray quality is not good. Repeat chest x-ray PA and lateral tomorrow a.m. For clinical suspicion, empirically treat with IV aztreonam and vancomycin for the suspicion of healthcare associated pneumonia as the patient had procedure in [facility] on last Friday as mentioned above. Pneumonia workup with urinary antigens, sputum culture and blood cultures ?2 ordered. 4. Acute encephalopathy possible metabolic/infectious encephalopathy: Treat the underlying cause 5. Diabetes mellitus type 2 with obesity: Accu-Chek before meals and at bedtime and cover with NovoLog sliding scale. 6. Chest tightness with H/o Coronary artery disease: Cardiac enzymes ordered as the patient complained of chest tightness. Patient had cardiac cath in December [address] Marvin. Found to have single- vessel coronary artery disease of left circumflex, occluded very small left circumflex with right to left collateral. LV gram EF 75%. Mid LAD 40%, distal LAD 60% mid circumflex occluded with [id number] collateral. Mid RCA less than 30%, right PDA less than 30%. At that time patient was started on Eliquis in December 2017 and DC Plavix. Follows Dr. Strickland Multiple other comorbidities include coronary artery disease, dyslipidemia, hypothyroidism, hypertension, obstructive sleep apnea on CPAP: Home medication reconciliation done. Clinical Impression(s) from Imaging Studies Chest X-Ray 02/03/18 16:30 IMPRESSION: No acute cardiopulmonary disease or interval change. Electronically Signed: Gurwinder Canela DO at 16:50 EDT Tel [phone], Service support , Laboratory Results 02/03/18 16:00: WBC 9.1, RBC 3.80 L, Hgb 11.7 L, Hct 36.7 L, MCV 96.6, MCH 30.8 , MCHC 31.9 L, RDW 15.3 H, RDW Differential 51.2 H, Plt Count 182, MPV 10.9, Immature Gran % (Auto) 0.100, Neut % (Auto) 79.4 H, Lymph % (Auto) 6.6 L, [place] % (Auto) 11.8 H, Eos % (Auto) 1.9, Baso % (Auto) 0.2, Absolute Neuts (auto) 7.2 , Absolute Lymphs (auto) 0.60 L, Total Counted Not Reportable, Differential Comment SCANNED 02/03/18 16:00: Sodium 140, Potassium 3.1 L, Chloride 97 L, Carbon Dioxide 37.0 H, Anion Gap 6, BUN 8, Creatinine 0.72, Estim Creat Clear Calc 63.25, Est GFR ( MDRD) Af Amer 105, Est GFR (MDRD) Non-Af 87, BUN/Creatinine Ratio 11.1, Glucose 104, Calcium 8.7, Troponin I < 0.015 02/03/18 16:00: Lactic Acid 1.6 02/03/18 16:09: Specimen Type ART, Sample Site L Brachial, pH 7.43, Bicarbonate Actual 37.5 H, POC Total CO2 39, Base Excess 13 H, O2 Saturation 95, ABG pCO2 56.7 H, ABG pO2 74 L, Chapin Test POS, O2 Delivery Device Nasal Can, Liter Flow 2.0, Blood Gas Notified Whom ED MD, Blood Gas Notified Time 1607 02/03/18 17:20: Urine Color Yellow, Urine Clarity Sl. Cloudy, Urine pH 7.0, Ur Specific Sullivan 1.005, Urine Protein Negative, Urine Glucose (UA) Normal, Urine Ketones Negative, Urine Occult Blood 25 H, Urine Nitrite Negative, Urine Bilirubin Negative, Urine Urobilinogen 1 H, Ur Leukocyte Esterase 500 H, Urine RBC 0-5 SEEN, Urine WBC 10-25 SEEN, Ur Squamous Epith Cells 0-5 SEEN, Amorphous Sediment 1+ PHOS, Urine Bacteria 0 SEEN, Urine Mucus 0 SEEN Code Visit Inpatient E&M: [id number] Init Hosp L3
--- NOTE | 2018-02-03 20:05 | CPS ---
pt sleeping and on BIPAP at this time. Unable to perform PEP therapy
[2018-02-03] MEDS: 0.9% Normal Saline 1,000 ML 75 ML IV (20:21)
[2018-02-03] MEDS: 0.9% NaCl Peripheral Flush Adult/Peds IV ×2 (21:30→22:51)
[2018-02-03 22:29] LABS: BNP,B-Type NATRIURETIC PEPTIDE 141.6 pg/mL (0-100)
[2018-02-03 22:36] LABS: Bedside Glucose 179 mg/dL (70-110)
[2018-02-03] MEDS: Sucralfate 1 GM Tablet PO (22:41)
[2018-02-03] MEDS: APIXABAN 2.5 MG TABLET PO (22:41)
[2018-02-03] MEDS: Metoprolol Tartrate 50 MG Tablet PO (22:42)
[2018-02-03] MEDS: guaiFENesin 1,200 MG Tablet 1200 MG PO (22:42)
[2018-02-03] MEDS: Famotidine 20 MG Tablet PO (22:42)
[2018-02-03] MEDS: Atorvastatin Calcium 40 MG Tablet PO (22:42)
[2018-02-03] MEDS: Senna Tablet 1 TABLET PO (22:43)
[2018-02-03] MEDS: Pantoprazole Sodium 40 MG Tablet PO (22:43)
[2018-02-04] VITALS (22 sets, daily range): BP systolic 114–136; BP diastolic 64–88; PULSE 66–130; RESP 15–29; TEMP 35.9–37.3; O2SAT 97–100
[2018-02-04 03:25] LABS: M R Staph aureus DNA By PCR POSITIVE (Negative); Probe Check PASS
[2018-02-04] MEDS: Ipratropium/Albuterol Sulfate 3 ML AMPUL.NEB INHALATION ×6 (03:47→23:02)
[2018-02-04] MEDS: 0.9% NaCl Peripheral Flush Adult/Peds IV ×2 (05:22→05:23)
--- NOTE | 2018-02-04 05:55 | RAD_ITS ---
STUDY: X-RAY CHEST REASON FOR EXAM: Female, 63 years old. Shortness of breath TECHNIQUE: AP and lateral views of the chest. COMPARISON: October 16 and February 03, 2018 FINDINGS: Facial soft tissues obscure anatomic detail of the apices. There is stable perihilar fullness and prominent interstitial markings. There is mild cardiomegaly. Normal visualized aortic arch and descending thoracic aorta. There are diffuse degenerative changes of the visualized thoracic spine. Normal visualized ribs, clavicles, and shoulders. There is no demonstrated abnormality of the visualized soft tissue structures of the upper abdomen. RAD/Chest PA and Lateral IMPRESSION: Persistent pulmonary venous congestion and prominent interstitial markings, cannot exclude underlying edema. Mild cardiomegaly. Electronically Signed: Chantel Mahajan MD at 8:58 EDT Tel , Service support ,
[2018-02-04 06:22] LABS: Absolute Lymphocyte Count 0.51 X10^3/ul (0.83-4.51); Absolute Neutrophil Count 5.7 X10^3/uL (2.0-7.7); Hemoglobin 11.8 g/dl (12.0-15.0); Lymphocyte # 0.51 X10^3/ul (4.0); Lymphocyte % 8.1 % (19-41); Mean Corp Hgb Conc 31.1 g/gl (32-36); Mean Corpuscular Hgb 29.5 pg (27.0-32.0); Mean Platelet Vol. 10.5 fl (6.2-12.0); Monocyte# 0.11 X10^3/uL; Monocyte% 1.7 % (0-10); Neutrophil # 5.67 X10^3/uL (2.7-7.7); Platelet Count 179 K/mm3 (150-450); RBC Distribution Width CV 15.2 % (11.6-14.6); RBC Distribution Width SD 52.5 fl (35.1-43.9); White Blood Count 6.3 K/mm3 (4.4-11.0)
[2018-02-04 06:23] LABS: Differential Indicated SCAN CRITERIA MET; POSITIVE COUNT NO; POSITIVE DIFFERENTIAL YES; POSITIVE MORPHOLOGY NO
[2018-02-04] MEDS: Sucralfate 1 GM Tablet PO ×4 (06:30→22:30)
[2018-02-04] MEDS: Levothyroxine 100 MCG Tablet PO (06:30)
[2018-02-04 06:35] LABS: ALB/GLOB Ratio 0.6 RATIO (0.9-2.4); AST(SGOT) 17 U/L (15-37); Alanine Aminotransfer ALT/SGPT 16 U/L (13-56); Albumin, Serum 2.7 g/dL (3.2-5.0); Alkaline Phosphatase 44 U/L (45-117); Anion Gap 10 (5-15); BUN 8 mg/dL (7-18); BUN/Creat Ratio 14.2 RATIO (10-20); Chloride 104 mmol/L (98-107); Creatinine, Serum 0.56 mg/dL (0.55-1.02); EST Glomerular Filtration Rate 115 mL/min (>60); Est Glom Filt Rate - Afr Amer 139 mL/min (>60); Estimated Creatinine Clearance 81.33 ml/min; Globulin 4.3 g/dL (2.2-4.2); Glucose 213 mg/dL (74-106); Potassium 3.6 mmol/L (3.5-5.1); Sodium Level 143 mmol/L (136-145)
[2018-02-04 06:43] LABS: Differential Comment SCANNED
[2018-02-04 06:56] LABS: Bedside Glucose 243 mg/dL (70-110)
[2018-02-04] MEDS: Aspirin 81 MG TAB.CHEW PO (08:29)
[2018-02-04] MEDS: Ascorbic Acid 500 MG Tablet PO (08:29)
[2018-02-04] MEDS: Ferrous Gluconate 325 MG Tablet PO (08:30)
[2018-02-04] MEDS: dilTIAZem CD 180 MG Capsule PO (08:36)
[2018-02-04] MEDS: DULoxetine Hcl 60 MG Capsule PO (08:36)
[2018-02-04] MEDS: Isosorbide Mononitrate 30 MG Tablet 90 MG PO (08:37)
[2018-02-04] MEDS: Metoprolol Tartrate 50 MG Tablet PO ×2 (08:37→18:27)
[2018-02-04] MEDS: Furosemide 40 MG Tablet PO ×2 (08:37→16:48)
[2018-02-04] MEDS: guaiFENesin 1,200 MG Tablet 1200 MG PO ×2 (08:37→22:30)
[2018-02-04] MEDS: Pantoprazole Sodium 40 MG Tablet PO ×2 (08:38→22:30)
[2018-02-04] MEDS: Famotidine 20 MG Tablet PO ×2 (08:38→22:30)
[2018-02-04] MEDS: Senna Tablet 1 TABLET PO ×2 (08:38→22:30)
[2018-02-04] MEDS: Fluticasone 0.05% 1 SPRAY NASAL.SRY 2 SPRAY NASAL (09:38)
[2018-02-04] MEDS: Polyethylene Glycol 3350 17 GM PACKET PO (10:00)
[2018-02-04] MEDS: APIXABAN 2.5 MG TABLET PO ×2 (10:01→22:30)
--- NOTE | 2018-02-04 10:35 | NURSING ---
pt helped up to chair, but very SOB with just pivoting from bed to chair. O2 sat 98% on 3L. After sitting in chair SOB subsided
--- NOTE | 2018-02-04 10:56 | PCM.CONS.GEN ---
Problem List (1) Acute on chronic respiratory failure with hypoxia and hypercapnia Status: Acute (2) COPD exacerbation Status: Acute (3) Mental status alteration Status: Acute Qualifiers: (4) Diabetes mellitus type 2 in obese Status: Chronic (5) Hypothyroidism Status: Chronic Qualifiers: (6) Hyperlipemia Status: Chronic (7) GERD (gastroesophageal reflux disease) Status: Chronic (8) Hypertension Status: Chronic (9) PARESH (obstructive sleep apnea) Status: Chronic Reason for Consult Date of Consultation: 02/04/18 Reason for Consultation: respiratory failure, pneumonia History of Present Illness: The patient is a 63 year old F with past medical history as below, presented to the ED 02/03/18 with complaints of severe shortness of breath. Family not present at time of interview, however they report per ED documentation the patient was more short of breath. She has history of pneumonia and was confused at that time, so family took her to her PCP. It was recommended she go to the ER. Patient denies any recent fever chills, increased cough or sputum production, or increased oxygen requirements. She saw her primary sports bookmaker CL[employer] at [facility] a couple of weeks ago and repeat pulmonary function tests were ordered. These have not been completed. Patient states she was told she has COPD, emphysema, and asthma. Patient recently had an EGD with pyloromyotomy secondary to gastroparesis at [facility]. Patient was lethargic upon initial presentation to the ED. Initial vitals BP 123/69, pulse 102, RR 26, 100.0?F, and 92% on room air. Initial lab work showed a normal white count of 9100, hemoglobin 11.7. Chemistry remarkable for a potassium of 3.1, chloride 97, and serum bicarb of 37. Her BNP was mildly elevated at 141. She was on 2 L of oxygen supplementation, showed a pH of 7.43, PCO2 of 56.7, PO2 of 74 bicarb of 37.5, with a base excess of 13. She was placed on BiPAP and given Solu-Medrol, aerosols, Levaquin, and vancomycin. Patient did test positive for human metapneumovirus and her UA was positive for E. coli. Blood cultures are pending and strep/Legionella antigens were negative. Initial chest x-ray showed hyperexpanded lungs with no acute cardiopulmonary disease. A repeat chest x-ray was obtained on 02/04/18 and showed persistent pulmonary venous congestion and prominent interstitial markings, underlying edema not excluded. Mild cardiomegaly. Patient reports minimal subjective improvement from yesterday overall with her breathing. She does get short of breath with minimal exertion, she stood and pivoted earlier today and was unable to take any steps. She also complains of stomach weakness. She did have cough this morning with brown sputum production. She is asking if she can go home. Patient with history of smoking 1-1/2 packs a day for 25 years. She quit 12 years ago. She has remained on supplemental oxygen for several years and was recently increased from 2 to 3 L. She also was admitted to [facility] at the beginning of November and had a stress test and subsequent heart catheterization that showed some disease. Recommendations were made for risk factor modification, indefinite aspirin, Eliquis, and follow-up with her primary biometrics experimentalist, Dr. Strickland. Patient's baseline inhaler regimen includes only Pro-air. She states she used to be on Advair, but no longer taking for unknown reason. She follows with Dr. Oliveira. Past Medical History Past Medical History (Chronic Problems): Chronic Problems Diabetes mellitus type 2 in obese (Chronic) Coronary arteriosclerosis (Chronic) cath 05/2015 mild-moderate disease medical therapy recommended Hypothyroidism (Chronic) Hyperlipemia (Chronic) GERD (gastroesophageal reflux disease) (Chronic) Hypertension (Chronic) COPD (chronic obstructive pulmonary disease) (Chronic) Chronic respiratory insufficiency (Chronic) On home oxygen at night S/P PTCA (percutaneous transluminal coronary angioplasty) (Chronic) PARESH (obstructive sleep apnea) (Chronic) Allergies cephalexin [From Keflex] Allergy (Verified 02/03/18 15:46) Unknown ciprofloxacin [From Cipro] Allergy (Verified 02/03/18 15:46) Hives latex Allergy (Verified 02/03/18 15:46) matos me niacin [From Niaspan Extended-Release] Allergy (Verified 02/03/18 15:46) Hives ondansetron [From Zofran] Allergy (Verified 02/03/18 15:46) Unknown Penicillins Allergy (Verified 02/03/18 15:46) Itching/redness Xanthines Allergy (Verified 02/03/18 15:46) Unknown orphenadrine citrate [From Norgesic] Adverse Reaction (Verified 02/03/18 15:46) groggy medical tape Adverse Reaction (Uncoded 02/03/18 15:46) blisters Home Medications: Ambulatory Orders Medication Instructions Recorded Albuterol Inhaler [Ventolin Hfa 2 puff INHALATION Q4H PRN PRN 02/03/18 (SP)] Apixaban [Eliquis] 2.5 mg PO BID 02/03/18 Ascorbic Acid [Vitamin C] 500 mg PO DAILY@0800 02/03/18 Aspirin [Aspirin, Baby] 81 mg PO DAILY@0800 02/03/18 Atorvastatin Calcium [Lipitor] 40 mg PO QHS 02/03/18 Capsaicin 1 dose TP 4X/DAY 02/03/18 Diltiazem HCl [Cartia Xt] 180 mg PO DAILY 02/03/18 Docusate Sodium [Stool Softener] 100 mg PO DAILY PRN PRN 02/03/18 Duloxetine Hcl [Cymbalta] 60 mg PO DAILY 02/03/18 Estradiol 1 dose VG MOWEFR 02/03/18 Ferrous Gluconate 325 mg PO DAILY@0800 02/03/18 Fluticasone 0.05% [Flonase Nasal 2 spray NASAL DAILY 02/03/18 [place]] Furosemide [Lasix] 40 mg PO BIDLX 02/03/18 Insulin Glargine,Hum.rec.anlog 56 unit SQ BID 02/03/18 [Lantus] Insulin Lispro [Humalog KwikPen] 22 unit SQ LUNCH 02/03/18 Insulin Lispro [Humalog KwikPen] 24 unit SQ DINNER 02/03/18 Insulin Lispro [Humalog] 14 unit SQ BREAKFAST 02/03/18 Isosorbide Mononitrate [Imdur] 90 mg PO DAILY 02/03/18 Levothyroxine [Synthroid] 100 mcg PO DAILY 02/03/18 Metformin HCl [Metformin HCl ER] 1,000 mg PO BID 02/03/18 Metoprolol Tartrate [Lopressor 50 mg PO BID 02/03/18 (beta sudhakar)] Oxycodone HCl [Roxicodone] 5 - 10 mg PO Q4H PRN 02/03/18 Pantoprazole Sodium [Protonix] 40 mg PO BID 02/03/18 Pregabalin [Lyrica] 100 mg PO TID 02/03/18 Sennosides [Claudia-Ramila] 8.6 mg PO BID 02/03/18 Sucralfate [Carafate] 1 gm PO 4X/DAY 02/03/18 proMETHazine tablet [Phenergan 25 mg PO Q6H PRN PRN 02/03/18 tablet] Surgical History: angioplasty, cholecystectomy, herniorrhaphy, hysterectomy, - - tubal ligation. 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 Denies: Anorexia, Chills, Fever, Night Sweats, Malaise, Weakness, Weight Change Eyes: Denies: Vision Change HEENT: Reports: Post Nasal Drip. Denies: Difficulty Swallowing, Dysphasia, Nasal Congestion, Sinus Congestion, Sore Throat Cardiovascular: Reports: Orthopnea. Denies: Chest Pain, Claudication, Chest Tightness, Edema, Light Headedness, Palpitations, Paroxysmal Noc. Dyspnea, Syncope Respiratory: Reports: Cough, Shortness of breath upon exertion, Sputum production, Wheezing. Denies: Hemoptysis, Pleuritic Pain, Shortness of breath at rest Gastrointestinal: Reports: Nausea. Denies: Abdominal Pain, Constipation, Diarrhea, Dyspepsia, Hematemesis, Hematochezia, Melena, Vomiting Genitourinary: Reports: Frequency, Nocturia. Denies: Dysuria, Hematuria, Retention Patient Problems: Active and Suspected Problems Acute on chronic respiratory failure with hypoxia and hypercapnia (Acute) COPD exacerbation (Acute) Possible pneumonia (Acute) Subjective: The patient was seen and examined. She is sitting up at the bedside chair, does not appear to be in any acute distress. She is wearing her baseline oxygen requirement of 3 L. She denies any current shortness of breath, however nursing staff reports she was unable to ambulate to the bathroom earlier secondary to dyspnea. Patient reports brown sputum production this morning, does feel better overall. She wore her BiPAP overnight but states it makes her very anxious. Objective: Clinical Impression(s) from Imaging Studies Chest X-Ray 02/03/18 16:30 IMPRESSION: No acute cardiopulmonary disease or interval change. Electronically Signed: Gurwinder Canela DO at 16:50 EDT Tel [phone], Service support , Chest X-Ray 02/04/18 05:55 IMPRESSION: Persistent pulmonary venous congestion and prominent interstitial markings, cannot exclude underlying edema. Mild cardiomegaly. Electronically Signed: Chantel Mahajan MD at 8:58 EDT Tel , Service support , - Physical Exam General: Alert, Cooperative, No apparent distress, Well developed, Well nourished, - - Oriented to self and place. Kyphotic HEENT: Atraumatic, Normocephalic Oral: No Gingival or Mucosal Lesions/ Ulcerations, Dry Mucosa Neck: Supple, No Nodes, Trachea Midline, - - large neck circumference with redundant soft tissue Lungs: No rhonchi, No wheeze, Diminished, Rales - Bibasilar, - - Symmetric expansion, no dullness to percussion. No tachypnea or accessory muscle use. Cardiovascular: Normal S1, Normal S2, No murmurs, Irregular Rate - irreg rhythm, No rub noted, No Gallop Abdomen: Bowel Sounds Present, Soft, Non Tender, Obese Extremities: No clubbing, No cyanosis, No edema, Capillary Refill Less than 3 Seconds Skin: No rashes, No breakdown Musculoskeletal: No Tenderness to Palpation of Joints or Extremities Lymphatic: No Cervical, Supraclavicular, or Inguinal Adenopathy Neurological: Cranial nerves II-XII grossly intact, Neuro grossly intact, Motor Exam 5/5 strength throughout Psych/Mental Status: Alert and oriented to time, place, person, mood and affect Vital Signs Temp Pulse Resp BP Pulse Ox 97.3 F L 87 22 H 128/76 H 97 02/04/18 09:43 02/04/18 09:43 02/04/18 09:43 02/04/18 09:43 02/04/18 09:43 Oxygen Flow Rate (L/min) 3 Oxygen Delivery Method Nasal Cannula Weight: 216 lb 11.43 oz Body Mass Index (BMI) 39.6 Intake and Output for Last 24 Hours 02/02/18 02/03/18 02/04/18 23:59 23:59 23:59 Intake Total 672 / 672 576 / 576 Output Total 1350 / 1350 500 / 500 Balance -678 / -678 76 / 76 Microbiology Past 72 Hours 02/03/18 20:04 Respiratory Panel (PCR) - Final Mucosa - Nose Human [place] Laboratory Tests Past 24 Hrs 02/03/18 02/04/18 02/04/18 21:08 01:35 01:50 WBC RBC Hgb Hct MCV MCH MCHC RDW RDW Differential Plt Count MPV Immature Gran % (Auto) Neut % (Auto) Lymph % (Auto) [place] % (Auto) Eos % (Auto) Baso % (Auto) Absolute Neuts (auto) Absolute Lymphs (auto) Total Counted Differential Comment Sodium Potassium Chloride Carbon Dioxide Anion Gap BUN Creatinine Estim Creat Clear Calc Est GFR (MDRD) Af Amer Est GFR (MDRD) Non-Af BUN/Creatinine Ratio Glucose Calcium Total Bilirubin AST ALT Alkaline Phosphatase Troponin I < 0.015 < 0.015 Total Protein Albumin Globulin Albumin/Globulin Ratio MRSA (PCR) POSITIVE H 02/04/18 02/04/18 02/04/18 05:46 05:46 05:46 WBC 6.3 RBC 4.00 L Hgb 11.8 L Hct 38.0 MCV 95.0 MCH 29.5 MCHC 31.1 L RDW 15.2 H RDW Differential 52.5 H Plt Count 179 MPV 10.5 Immature Gran % (Auto) 0.200 Neut % (Auto) 90.0 H Lymph % (Auto) 8.1 L [place] % (Auto) 1.7 Eos % (Auto) 0.0 Baso % (Auto) 0.0 Absolute Neuts (auto) 5.7 Absolute Lymphs (auto) 0.51 L Total Counted Not Reportable Differential Comment SCANNED Sodium 143 Potassium 3.6 Chloride 104 Carbon Dioxide 29.0 Anion Gap 10 BUN 8 Creatinine 0.56 Estim Creat Clear Calc 81.33 Est GFR (MDRD) Af Amer 139 Est GFR (MDRD) Non-Af 115 BUN/Creatinine Ratio 14.2 Glucose 213 H Calcium 8.0 L Total Bilirubin 1.10 H AST 17 ALT 16 Alkaline Phosphatase 44 L Troponin I < 0.015 Total Protein 7.0 Albumin 2.7 L Globulin 4.3 H Albumin/Globulin Ratio 0.6 L MRSA (PCR) POC Glucose 02/04/18 02/03/18 06:49 21:35 POC Glucose 243 H 179 H Assessment/Plan Active and Suspected Problems Acute on chronic respiratory failure with hypoxia and hypercapnia (Acute) COPD exacerbation (Acute) Possible pneumonia (Acute) RECOMMENDATIONS 1. Wean oxygen supplementation to keep saturations 88-92%. 2. Encourage incentive spirometer and chest physiotherapy 3. Increase activity as tolerated, PT consult 4. Continue aerosols. Transition to oral steroids 5. Continue antibiotics for UTI 6. Obtain sputum culture 7. Ambulatory pulse ox prior to discharge 8. Patient can follow-up with her primary sports bookmaker upon discharge IMPRESSIONS 1. Acute on chronic combined respiratory failure Likely secondary to human metapneumovirus. No acute process seen on plain film chest x-ray. Initial fever of 100.0?F, otherwise afebrile with no white count. Patient does have some changes in color of sputum, was coughing up darker brown. Obtain sputum culture. Await infectious workup. Wean oxygen supplementation to keep saturations 88-92%, to prevent paradoxical CO2 retention. Transition to oral steroids. Increase activity as tolerated. Encourage incentive spirometer/Acapella. Patient will need a ambulatory pulse ox prior to discharge. She can follow-up with her primary sports bookmaker as previously scheduled. She should hold off on performing pulmonary function tests until her acute viral illness has resolved. 2. Encephalopathy Could be medication related, the patient had a recent procedure at [facility] and was given narcotics. Patient does does have evidence of chronic CO2 retention as well. This has improved overnight. She did wear BiPAP but states she is typically intolerant to it. 3. Self-reported COPD and asthma, self-reported PARESH Patient was reportedly wheezing presentation. No wheezing heard today on exam, however will keep on steroids but transition to oral today. Her shortness of breath/combined lung disease likely exacerbated secondary to viral infection. Patient sleep study about a year ago and is following with her primary sports bookmaker for this. Her pulmonary testing is not available to review at this time. She has refused noninvasive positive pressure therapy in the past. 4. Type 2 diabetes/GERD/hypertension/CAD/hypothyroidism Complicates care, management, recovery, and prognosis. Continue home medications as indicated. Insulin may need to be adjusted with steroid use. Thank you for the opportunity to participate in this patient's care, please not hesitate contact us with any further questions or concerns. This note was generated with [employer] dictation software. It may contain incorrect words, spelling, and punctuation that were not noted in checking the note before signing.
--- NOTE | 2018-02-04 11:10 | CON.PCM_ITS ---
Problem List (1) Acute on chronic respiratory failure with hypoxia and hypercapnia Status: Acute (2) COPD exacerbation Status: Acute (3) Mental status alteration Status: Acute Qualifiers: (4) Diabetes mellitus type 2 in obese Status: Chronic (5) Hypothyroidism Status: Chronic Qualifiers: (6) Hyperlipemia Status: Chronic (7) GERD (gastroesophageal reflux disease) Status: Chronic (8) Hypertension Status: Chronic (9) PARESH (obstructive sleep apnea) Status: Chronic Reason for Consult Date of Consultation: 02/04/18 Reason for Consultation: respiratory failure, pneumonia History of Present Illness: The patient is a 63 year old F with past medical history as below, presented to the ED 02/03/18 with complaints of severe shortness of breath. Family not present at time of interview, however they report per ED documentation the patient was more short of breath. She has history of pneumonia and was confused at that time, so family took her to her PCP. It was recommended she go to the ER. Patient denies any recent fever chills, increased cough or sputum production, or increased oxygen requirements. She saw her primary energy specialist BAKESHOP CLEANER at [facility] a couple of weeks ago and repeat pulmonary function tests were ordered. These have not been completed. Patient states she was told she has COPD, emphysema, and asthma. Patient recently had an EGD with pyloromyotomy secondary to gastroparesis at [facility]. Patient was lethargic upon initial presentation to the ED. Initial vitals BP 123 /69, pulse 102, RR 26, 100.0?F, and 92% on room air. Initial lab work showed a normal white count of 9100, hemoglobin 11.7. Chemistry remarkable for a potassium of 3.1, chloride 97, and serum bicarb of 37. Her BNP was mildly elevated at 141. She was on 2 L of oxygen supplementation, showed a pH of 7.43 , PCO2 of 56.7, PO2 of 74 bicarb of 37.5, with a base excess of 13. She was placed on BiPAP and given Solu-Medrol, aerosols, Levaquin, and vancomycin. Patient did test positive for human metapneumovirus and her UA was positive for E. coli. Blood cultures are pending and strep/Legionella antigens were negative. Initial chest x-ray showed hyperexpanded lungs with no acute cardiopulmonary disease. A repeat chest x-ray was obtained on 02/04/18 and showed persistent pulmonary venous congestion and prominent interstitial markings, underlying edema not excluded. Mild cardiomegaly. Patient reports minimal subjective improvement from yesterday overall with her breathing. She does get short of breath with minimal exertion, she stood and pivoted earlier today and was unable to take any steps. She also complains of stomach weakness. She did have cough this morning with brown sputum production. She is asking if she can go home. Patient with history of smoking 1-1/2 packs a day for 25 years. She quit 12 years ago. She has remained on supplemental oxygen for several years and was recently increased from 2 to 3 L. She also was admitted to [facility] at the beginning of November and had a stress test and subsequent heart catheterization that showed some disease. Recommendations were made for risk factor modification, indefinite aspirin, Eliquis, and follow-up with her primary ditch tender, Dr. Strickland. Patient's baseline inhaler regimen includes only Pro -air. She states she used to be on Advair, but no longer taking for unknown reason. She follows with Dr. Oliveira. Past Medical History Past Medical History (Chronic Problems): Chronic Problems Diabetes mellitus type 2 in obese (Chronic) Coronary arteriosclerosis (Chronic) cath 05/2015 mild-moderate disease medical therapy recommended Hypothyroidism (Chronic) Hyperlipemia (Chronic) GERD (gastroesophageal reflux disease) (Chronic) Hypertension (Chronic) COPD (chronic obstructive pulmonary disease) (Chronic) Chronic respiratory insufficiency (Chronic) On home oxygen at night S/P PTCA (percutaneous transluminal coronary angioplasty) (Chronic) PARESH (obstructive sleep apnea) (Chronic) Allergies cephalexin [From Keflex] Allergy (Verified 02/03/18 15:46) Unknown ciprofloxacin [From Cipro] Allergy (Verified 02/03/18 15:46) Hives latex Allergy (Verified 02/03/18 15:46) matos me niacin [From Niaspan Extended-Release] Allergy (Verified 02/03/18 15:46) Hives ondansetron [From Zofran] Allergy (Verified 02/03/18 15:46) Unknown Penicillins Allergy (Verified 02/03/18 15:46) Itching/redness Xanthines Allergy (Verified 02/03/18 15:46) Unknown orphenadrine citrate [From Norgesic] Adverse Reaction (Verified 02/03/18 15:46) groggy medical tape Adverse Reaction (Uncoded 02/03/18 15:46) blisters Home Medications: Ambulatory Orders Medication Instructions Recorded Albuterol Inhaler [Ventolin Hfa 2 puff INHALATION Q4H PRN PRN 02/03/18 (SP)] Apixaban [Eliquis] 2.5 mg PO BID 02/03/18 Ascorbic Acid [Vitamin C] 500 mg PO DAILY@0800 02/03/18 Aspirin [Aspirin, Baby] 81 mg PO DAILY@0800 02/03/18 Atorvastatin Calcium [Lipitor] 40 mg PO QHS 02/03/18 Capsaicin 1 dose TP 4X/DAY 02/03/18 Diltiazem HCl [Cartia Xt] 180 mg PO DAILY 02/03/18 Docusate Sodium [Stool Softener] 100 mg PO DAILY PRN PRN 02/03/18 Duloxetine Hcl [Cymbalta] 60 mg PO DAILY 02/03/18 Estradiol 1 dose VG MOWEFR 02/03/18 Ferrous Gluconate 325 mg PO DAILY@0800 02/03/18 Fluticasone 0.05% [Flonase Nasal 2 spray NASAL DAILY 02/03/18 [place]] Furosemide [Lasix] 40 mg PO BIDLX 02/03/18 Insulin Glargine,Hum.rec.anlog 56 unit SQ BID 02/03/18 [Lantus] Insulin Lispro [Humalog KwikPen] 22 unit SQ LUNCH 02/03/18 Insulin Lispro [Humalog KwikPen] 24 unit SQ DINNER 02/03/18 Insulin Lispro [Humalog] 14 unit SQ BREAKFAST 02/03/18 Isosorbide Mononitrate [Imdur] 90 mg PO DAILY 02/03/18 Levothyroxine [Synthroid] 100 mcg PO DAILY 02/03/18 Metformin HCl [Metformin HCl ER] 1,000 mg PO BID 02/03/18 Metoprolol Tartrate [Lopressor 50 mg PO BID 02/03/18 (beta sudhakar)] Oxycodone HCl [Roxicodone] 5 - 10 mg PO Q4H PRN 02/03/18 Pantoprazole Sodium [Protonix] 40 mg PO BID 02/03/18 Pregabalin [Lyrica] 100 mg PO TID 02/03/18 Sennosides [Claudia-Ramila] 8.6 mg PO BID 02/03/18 Sucralfate [Carafate] 1 gm PO 4X/DAY 02/03/18 proMETHazine tablet [Phenergan 25 mg PO Q6H PRN PRN 02/03/18 tablet] Surgical History: angioplasty, cholecystectomy, herniorrhaphy, hysterectomy, - - tubal ligation. 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 Denies: Anorexia, Chills, Fever, Night Sweats, Malaise, Weakness, Weight Change Eyes: Denies: Vision Change HEENT: Reports: Post Nasal Drip. Denies: Difficulty Swallowing, Dysphasia, Nasal Congestion, Sinus Congestion, Sore Throat Cardiovascular: Reports: Orthopnea. Denies: Chest Pain, Claudication, Chest Tightness, Edema, Light Headedness, Palpitations, Paroxysmal Noc. Dyspnea, Syncope Respiratory: Reports: Cough, Shortness of breath upon exertion, Sputum production, Wheezing. Denies: Hemoptysis, Pleuritic Pain, Shortness of breath at rest Gastrointestinal: Reports: Nausea. Denies: Abdominal Pain, Constipation, Diarrhea, Dyspepsia, Hematemesis, Hematochezia, Melena, Vomiting Genitourinary: Reports: Frequency, Nocturia. Denies: Dysuria, Hematuria, Retention Patient Problems: Active and Suspected Problems Acute on chronic respiratory failure with hypoxia and hypercapnia (Acute) COPD exacerbation (Acute) Possible pneumonia (Acute) Subjective: The patient was seen and examined. She is sitting up at the bedside chair, does not appear to be in any acute distress. She is wearing her baseline oxygen requirement of 3 L. She denies any current shortness of breath, however nursing staff reports she was unable to ambulate to the bathroom earlier secondary to dyspnea. Patient reports brown sputum production this morning, does feel better overall. She wore her BiPAP overnight but states it makes her very anxious. Objective: Clinical Impression(s) from Imaging Studies Chest X-Ray 02/03/18 16:30 IMPRESSION: No acute cardiopulmonary disease or interval change. Electronically Signed: Gurwinder Canela DO at 16:50 EDT Tel [phone], Service support , Chest X-Ray 02/04/18 05:55 IMPRESSION: Persistent pulmonary venous congestion and prominent interstitial markings, cannot exclude underlying edema. Mild cardiomegaly. Electronically Signed: Chantel Mahajan MD at 8:58 EDT Tel , Service support , - Physical Exam General: Alert, Cooperative, No apparent distress, Well developed, Well nourished, - - Oriented to self and place. Kyphotic HEENT: Atraumatic, Normocephalic Oral: No Gingival or Mucosal Lesions/ Ulcerations, Dry Mucosa Neck: Supple, No Nodes, Trachea Midline, - - large neck circumference with redundant soft tissue Lungs: No rhonchi, No wheeze, Diminished, Rales - Bibasilar, - - Symmetric expansion, no dullness to percussion. No tachypnea or accessory muscle use. Cardiovascular: Normal S1, Normal S2, No murmurs, Irregular Rate - irreg rhythm , No rub noted, No Gallop Abdomen: Bowel Sounds Present, Soft, Non Tender, Obese Extremities: No clubbing, No cyanosis, No edema, Capillary Refill Less than 3 Seconds Skin: No rashes, No breakdown Musculoskeletal: No Tenderness to Palpation of Joints or Extremities Lymphatic: No Cervical, Supraclavicular, or Inguinal Adenopathy Neurological: Cranial nerves II-XII grossly intact, Neuro grossly intact, Motor Exam 5/5 strength throughout Psych/Mental Status: Alert and oriented to time, place, person, mood and affect Vital Signs Temp Pulse Resp BP Pulse Ox 97.3 F L 87 22 H 128/76 H 97 02/04/18 09:43 02/04/18 09:43 02/04/18 09:43 02/04/18 09:43 02/04/18 09:43 Oxygen Flow Rate (L/min) 3 Oxygen Delivery Method Nasal Cannula Weight: 216 lb 11.43 oz Body Mass Index (BMI) 39.6 Intake and Output for Last 24 Hours 02/02/18 02/03/18 02/04/18 23:59 23:59 23:59 Intake Total 672 / 672 576 / 576 Output Total 1350 / 1350 500 / 500 Balance -678 / -678 76 / 76 Microbiology Past 72 Hours 02/03/18 20:04 Respiratory Panel (PCR) - Final Mucosa - Nose Human [place] Laboratory Tests Past 24 Hrs 02/03/18 02/04/18 02/04/18 21:08 01:35 01:50 WBC RBC Hgb Hct MCV MCH MCHC RDW RDW Differential Plt Count MPV Immature Gran % (Auto) Neut % (Auto) Lymph % (Auto) [place] % (Auto) Eos % (Auto) Baso % (Auto) Absolute Neuts (auto) Absolute Lymphs (auto) Total Counted Differential Comment Sodium Potassium Chloride Carbon Dioxide Anion Gap BUN Creatinine Estim Creat Clear Calc Est GFR (MDRD) Af Amer Est GFR (MDRD) Non-Af BUN/Creatinine Ratio Glucose Calcium Total Bilirubin AST ALT Alkaline Phosphatase Troponin I < 0.015 < 0.015 Total Protein Albumin Globulin Albumin/Globulin Ratio MRSA (PCR) POSITIVE H 02/04/18 02/04/18 02/04/18 05:46 05:46 05:46 WBC 6.3 RBC 4.00 L Hgb 11.8 L Hct 38.0 MCV 95.0 MCH 29.5 MCHC 31.1 L RDW 15.2 H RDW Differential 52.5 H Plt Count 179 MPV 10.5 Immature Gran % (Auto) 0.200 Neut % (Auto) 90.0 H Lymph % (Auto) 8.1 L [place] % (Auto) 1.7 Eos % (Auto) 0.0 Baso % (Auto) 0.0 Absolute Neuts (auto) 5.7 Absolute Lymphs (auto) 0.51 L Total Counted Not Reportable Differential Comment SCANNED Sodium 143 Potassium 3.6 Chloride 104 Carbon Dioxide 29.0 Anion Gap 10 BUN 8 Creatinine 0.56 Estim Creat Clear Calc 81.33 Est GFR (MDRD) Af Amer 139 Est GFR (MDRD) Non-Af 115 BUN/Creatinine Ratio 14.2 Glucose 213 H Calcium 8.0 L Total Bilirubin 1.10 H AST 17 ALT 16 Alkaline Phosphatase 44 L Troponin I < 0.015 Total Protein 7.0 Albumin 2.7 L Globulin 4.3 H Albumin/Globulin Ratio 0.6 L MRSA (PCR) POC Glucose 02/04/18 02/03/18 06:49 21:35 POC Glucose 243 H 179 H Assessment/Plan Active and Suspected Problems Acute on chronic respiratory failure with hypoxia and hypercapnia (Acute) COPD exacerbation (Acute) Possible pneumonia (Acute) RECOMMENDATIONS 1. Wean oxygen supplementation to keep saturations 88-92%. 2. Encourage incentive spirometer and chest physiotherapy 3. Increase activity as tolerated, PT consult 4. Continue aerosols. Transition to oral steroids 5. Continue antibiotics for UTI 6. Obtain sputum culture 7. Ambulatory pulse ox prior to discharge 8. Patient can follow-up with her primary energy specialist upon discharge IMPRESSIONS 1. Acute on chronic combined respiratory failure Likely secondary to human metapneumovirus. No acute process seen on plain film chest x-ray. Initial fever of 100.0?F, otherwise afebrile with no white count. Patient does have some changes in color of sputum, was coughing up darker brown. Obtain sputum culture. Await infectious workup. Wean oxygen supplementation to keep saturations 88-92%, to prevent paradoxical CO2 retention. Transition to oral steroids. Increase activity as tolerated. Encourage incentive spirometer/Acapella. Patient will need a ambulatory pulse ox prior to discharge. She can follow-up with her primary energy specialist as previously scheduled. She should hold off on performing pulmonary function tests until her acute viral illness has resolved. 2. Encephalopathy Could be medication related, the patient had a recent procedure at [facility] and was given narcotics. Patient does does have evidence of chronic CO2 retention as well. This has improved overnight. She did wear BiPAP but states she is typically intolerant to it. 3. Self-reported COPD and asthma, self-reported PARESH Patient was reportedly wheezing presentation. No wheezing heard today on exam, however will keep on steroids but transition to oral today. Her shortness of breath/combined lung disease likely exacerbated secondary to viral infection. Patient sleep study about a year ago and is following with her primary energy specialist for this. Her pulmonary testing is not available to review at this time. She has refused noninvasive positive pressure therapy in the past. 4. Type 2 diabetes/GERD/hypertension/CAD/hypothyroidism Complicates care, management, recovery, and prognosis. Continue home medications as indicated. Insulin may need to be adjusted with steroid use. Thank you for the opportunity to participate in this patient's care, please not hesitate contact us with any further questions or concerns. This note was generated with [employer] dictation software. It may contain incorrect words, spelling, and punctuation that were not noted in checking the note before signing.
[2018-02-04 11:15] LABS: Bedside Glucose 347 mg/dL (70-110)
--- NOTE | 2018-02-04 13:10 | CASEMGMT ---
Face to Face with patient for initial transition planning/care coordination assessment. RN JOSEFINA introduced self and role at [facility], pt voices understanding and consents to assessment at this time. Pt is sitting up in chair in no distress at this time. Pt is A/O x4 at this time and answers all questions appropriately at this time. Care providers, pharmacy, and demographics verified. See attached link. Pt voices no further concerns/needs at this time. Advised pt to ask for CM if any further questions/concerns/needs arise, voices understanding. CM to follow for any further discharge planning/needs. PLAN: [facility]
--- NOTE | 2018-02-04 13:53 | PCM.PROGNOTE ---
<Rosa Hanna - Last Filed: 02/04/18 14:06> Patient Problems: Active and Suspected Problems Acute on chronic respiratory failure with hypoxia and hypercapnia (Acute) COPD exacerbation (Acute) Possible pneumonia (Acute) Subjective: Patient seen and examined. Laying on her side in bed in no acute distress. On baseline home oxygen of 3 L nasal cannula. She states she is not currently short of breath and wishes to be discharged later today. Patient was encouraged to ambulate and get up to chair. Nursing reports when she got out of bed to ambulate she became significantly shortness of breath and decided she should continue with her hospital stay. She denies fever, chills. Intermittent productive cough. Denies other complaints. She states she does not like to wear BiPAP. - Physical Exam General: Alert, Oriented x3, Cooperative HEENT: Atraumatic, PERRLA, EOMI, Normocephalic Neck: Supple, No JVD, Negative Carotid Bruits Lungs: Clear to auscultation, Diminished Cardiovascular: - - Atrial for ablation, rate controlled. Abdomen: Bowel Sounds Present, Soft, Non Tender, Non-Distended, Obese Extremities: No clubbing, No cyanosis, No edema, Capillary Refill Less than 3 Seconds Skin: No rashes, No breakdown Musculoskeletal: No Tenderness to Palpation of Joints or Extremities Neurological: Cranial nerves II-XII grossly intact, Neuro grossly intact Psych/Mental Status: Normal Affect, Appropriate Vital Signs Temp Pulse Resp BP Pulse Ox 97.3 F L 94 20 H 128/76 H 97 02/04/18 09:43 02/04/18 12:16 02/04/18 11:00 02/04/18 09:43 02/04/18 09:43 Oxygen Flow Rate (L/min) 3 Oxygen Delivery Method Nasal Cannula Weight: 98.3 kg Body Mass Index (BMI) 39.6 Intake and Output for Last 24 Hours 02/02/18 02/03/18 02/04/18 23:59 23:59 23:59 Intake Total 672 / 672 1170 / 1170 Output Total 1350 / 1350 500 / 500 Balance -678 / -678 670 / 670 Microbiology Past 72 Hours 02/03/18 20:04 Respiratory Panel (PCR) - Final Mucosa - Nose Human [place] Laboratory Tests Past 24 Hrs 02/03/18 02/04/18 02/04/18 21:08 01:35 01:50 WBC RBC Hgb Hct MCV MCH MCHC RDW RDW Differential Plt Count MPV Immature Gran % (Auto) Neut % (Auto) Lymph % (Auto) [place] % (Auto) Eos % (Auto) Baso % (Auto) Absolute Neuts (auto) Absolute Lymphs (auto) Total Counted Differential Comment Sodium Potassium Chloride Carbon Dioxide Anion Gap BUN Creatinine Estim Creat Clear Calc Est GFR (MDRD) Af Amer Est GFR (MDRD) Non-Af BUN/Creatinine Ratio Glucose Calcium Total Bilirubin AST ALT Alkaline Phosphatase Troponin I < 0.015 < 0.015 Total Protein Albumin Globulin Albumin/Globulin Ratio MRSA (PCR) POSITIVE H 02/04/18 02/04/18 02/04/18 05:46 05:46 05:46 WBC 6.3 RBC 4.00 L Hgb 11.8 L Hct 38.0 MCV 95.0 MCH 29.5 MCHC 31.1 L RDW 15.2 H RDW Differential 52.5 H Plt Count 179 MPV 10.5 Immature Gran % (Auto) 0.200 Neut % (Auto) 90.0 H Lymph % (Auto) 8.1 L [place] % (Auto) 1.7 Eos % (Auto) 0.0 Baso % (Auto) 0.0 Absolute Neuts (auto) 5.7 Absolute Lymphs (auto) 0.51 L Total Counted Not Reportable Differential Comment SCANNED Sodium 143 Potassium 3.6 Chloride 104 Carbon Dioxide 29.0 Anion Gap 10 BUN 8 Creatinine 0.56 Estim Creat Clear Calc 81.33 Est GFR (MDRD) Af Amer 139 Est GFR (MDRD) Non-Af 115 BUN/Creatinine Ratio 14.2 Glucose 213 H Calcium 8.0 L Total Bilirubin 1.10 H AST 17 ALT 16 Alkaline Phosphatase 44 L Troponin I < 0.015 Total Protein 7.0 Albumin 2.7 L Globulin 4.3 H Albumin/Globulin Ratio 0.6 L MRSA (PCR) POC Glucose 02/04/18 02/04/18 02/03/18 11:13 06:49 21:35 POC Glucose 347 H 243 H 179 H Medical Necessity - Tobacco Use Smoking Status: Former smoker - 40 [id number] Tobacco Use: Cigarettes Assessment/Plan Active and Suspected Problems Acute on chronic respiratory failure with hypoxia and hypercapnia (Acute) COPD exacerbation (Acute) Possible pneumonia (Acute) 1. Acute on chronic COPD exacerbation secondary to human metapneumovirus-respiratory panel positive for human metapneumovirus. Pulmonary medicine consulted. It is not felt patient requires antibiotics at this time. Continue IV Solu-Medrol 40 mg IV every 8. Continue supplemental oxygen to maintain O2 at or above 90%. Patient requires 3 L nasal cannula at baseline. Encourage BiPAP use HS. chest x-ray on admission showed no acute cardiopulmonary disease. Pneumonia ruled out. 2. Acute on chronic combined respiratory failure-continue supplemental oxygen to maintain O2 at or above 90%. Patient wears 3 L nasal cannula at baseline. BiPAP nightly. 3. Obstructive sleep apnea-BiPAP nightly. 4. CAD status post PTCA-continue aspirin, statin, Eliquis, beta-sudhakar, nitrate, Lasix, Cardizem 5. Type 2 diabetes mellitus-continue home oral regimen. Accu-Cheks before meals at bedtime with sliding scale insulin. Continue home short and long-acting insulin regimen. Most recent hemoglobin A1c February 2016 8.2%. 6. Hypertension-stable, continue home regimen. 7. Hyperlipidemia-continue statin. 8. Hypothyroidism-continue Synthroid regimen. 9. Paroxysmal atrial fibrillation-rate controlled. Continue Cardizem, metoprolol, Eliquis. 10. GERD-continue PPI. 11. Obesity-encouraged diet and lifestyle modifications. DVT prophylaxis-Eliquis. This patient was seen by IZABELA Kraus under the supervision of Dr. Fabian. <Shirley Fabian - Last Filed: 02/04/18 16:41> - Physical Exam Vital Signs Temp Pulse Resp BP Pulse Ox 99.1 F 104 H 20 H 119/69 99 02/04/18 15:40 02/04/18 15:40 02/04/18 15:40 02/04/18 15:40 02/04/18 15:40 Oxygen Flow Rate (L/min) 3 Oxygen Delivery Method Nasal Cannula Weight: 98.3 kg Body Mass Index (BMI) 39.6 Intake and Output for Last 24 Hours 02/02/18 02/03/18 02/04/18 23:59 23:59 23:59 Intake Total 672 / 672 1170 / 1170 Output Total 1350 / 1350 500 / 500 Balance -678 / -678 670 / 670 Microbiology Past 72 Hours 02/03/18 20:04 Respiratory Panel (PCR) - Final Mucosa - Nose Human [place] Laboratory Tests Past 24 Hrs 02/03/18 02/04/18 02/04/18 21:08 01:35 01:50 WBC RBC Hgb Hct MCV MCH MCHC RDW RDW Differential Plt Count MPV Immature Gran % (Auto) Neut % (Auto) Lymph % (Auto) [place] % (Auto) Eos % (Auto) Baso % (Auto) Absolute Neuts (auto) Absolute Lymphs (auto) Total Counted Differential Comment Sodium Potassium Chloride Carbon Dioxide Anion Gap BUN Creatinine Estim Creat Clear Calc Est GFR (MDRD) Af Amer Est GFR (MDRD) Non-Af BUN/Creatinine Ratio Glucose Calcium Total Bilirubin AST ALT Alkaline Phosphatase Troponin I < 0.015 < 0.015 Total Protein Albumin Globulin Albumin/Globulin Ratio MRSA (PCR) POSITIVE H 02/04/18 02/04/18 02/04/18 05:46 05:46 05:46 WBC 6.3 RBC 4.00 L Hgb 11.8 L Hct 38.0 MCV 95.0 MCH 29.5 MCHC 31.1 L RDW 15.2 H RDW Differential 52.5 H Plt Count 179 MPV 10.5 Immature Gran % (Auto) 0.200 Neut % (Auto) 90.0 H Lymph % (Auto) 8.1 L [place] % (Auto) 1.7 Eos % (Auto) 0.0 Baso % (Auto) 0.0 Absolute Neuts (auto) 5.7 Absolute Lymphs (auto) 0.51 L Total Counted Not Reportable Differential Comment SCANNED Sodium 143 Potassium 3.6 Chloride 104 Carbon Dioxide 29.0 Anion Gap 10 BUN 8 Creatinine 0.56 Estim Creat Clear Calc 81.33 Est GFR (MDRD) Af Amer 139 Est GFR (MDRD) Non-Af 115 BUN/Creatinine Ratio 14.2 Glucose 213 H Calcium 8.0 L Total Bilirubin 1.10 H AST 17 ALT 16 Alkaline Phosphatase 44 L Troponin I < 0.015 Total Protein 7.0 Albumin 2.7 L Globulin 4.3 H Albumin/Globulin Ratio 0.6 L MRSA (PCR) POC Glucose 02/04/18 02/04/18 02/04/18 16:04 11:13 06:49 POC Glucose 275 H 347 H 243 H 02/03/18 21:35 POC Glucose 179 H Assessment/Plan Patient was seen and examined independently of nurse practitioner Rosa Hanna. I agree with the above interval history, physical exam and assessment and plan as documented. Appreciate Pulmonology consult Patient admits to feeling slightly better than she did before admission. She is however on the same amount of oxygen as she was at home. Denied any chest pain, fever or chills. She has sputum production productive of brownish sputum. Denies any hemoptysis. Vitals reviewed, were stable. Physical exam is significant for generalized weakness, morbid obesity, no pallor or jaundice. Chest: Decreased air entry all over the lung zones, vesicular breath sounds, no wheezes. CVS: Heart sounds 1 and 2, irregular, EXT: No edema Microbiology significant for human Horta pneumo virus and E. Coli Will continue on oxygen therapy, breathing treatments, IV Solu-Medrol, no need for antibiotics, will transition to prednisone tomorrow and assess for home oxygen possibly tomorrow. Encouraged to use a BiPAP at night. Patient had E. coli asymptomatic bacteriuria, will DC Mar[place]aga catheter, continue to monitor Reviewed rest of her medications. Code Visit Inpatient E&M: 35274 Disch Hosp
[2018-02-04] MEDS: Glucerna Shake 120 ML LIQUID PO ×2 (14:15→16:48)
--- NOTE | 2018-02-04 14:53 | CASEMGMT ---
Patient has Passport. BLKAE called [facility] and let Yvon on the coverage line know patient was in the hospital. Charley ROLAND MSW
--- NOTE | 2018-02-04 15:45 | CHAPLAIN ---
patient was watching TV programs that she wanted to watch and declined a bog cutter visit at this time
[2018-02-04 16:31] LABS: Bedside Glucose 275 mg/dL (70-110)
[2018-02-04] MEDS: Acetaminophen 325 MG Tablet 650 MG PO (18:27)
--- NOTE | 2018-02-04 18:43 | NURSING ---
pt noncompliant with diabetic diet. refusing to drink sprite zero and insisting on having regular sodas
[2018-02-04] MEDS: proMETHazine 25 MG Tablet PO (22:14)
[2018-02-04] MEDS: Atorvastatin Calcium 40 MG Tablet PO (22:30)
[2018-02-04 22:56] LABS: Bedside Glucose 284 mg/dL (70-110)
[2018-02-05] VITALS (18 sets, daily range): BP systolic 85–146; BP diastolic 62–87; PULSE 70–129; RESP 12–22; TEMP 36.5–36.8; O2SAT 95–99
[2018-02-05] MEDS: Ipratropium/Albuterol Sulfate 3 ML AMPUL.NEB INHALATION ×4 (03:30→15:07)
[2018-02-05] MEDS: 0.9% NaCl Peripheral Flush Adult/Peds IV ×4 (05:53→21:55)
[2018-02-05] MEDS: Levothyroxine 100 MCG Tablet PO (05:53)
[2018-02-05] MEDS: Sucralfate 1 GM Tablet PO ×4 (06:54→21:52)
[2018-02-05 07:10] LABS: Bedside Glucose 231 mg/dL (70-110)
[2018-02-05] MEDS: Aspirin 81 MG TAB.CHEW PO (08:10)
[2018-02-05] MEDS: Ferrous Gluconate 325 MG Tablet PO (08:11)
[2018-02-05] MEDS: Fluticasone 0.05% 1 SPRAY NASAL.SRY 2 SPRAY NASAL (08:11)
[2018-02-05] MEDS: Ascorbic Acid 500 MG Tablet PO (08:11)
[2018-02-05] MEDS: Metoprolol Tartrate 50 MG Tablet PO ×2 (08:44→11:43)
[2018-02-05] MEDS: DULoxetine Hcl 60 MG Capsule PO (08:45)
[2018-02-05] MEDS: dilTIAZem CD 180 MG Capsule PO (08:46)
--- NOTE | 2018-02-05 10:25 | PCM.PROGNOTE ---
Patient Problems: Active and Suspected Problems Acute on chronic respiratory failure with hypoxia and hypercapnia (Acute) COPD exacerbation (Acute) Possible pneumonia (Acute) Subjective: Patient was seen and examined. She is lying in bed talking on the phone. Reports she feels terrible, complaining of left hip pain in her lungs rumbling and has a productive cough of brown to green sputum. Does not want to leave today. Objective: No new labs today. Culture data reviewed. No new imaging to review. Viral respiratory panel positive for human metapneumovirus. MRSA PCR was positive. Sputum culture and blood cultures are pending. Urine strep/Legionella antigens were negative. - Physical Exam General: Alert, Oriented x3, Cooperative, No apparent distress, - - Conversational dyspnea HEENT: Atraumatic, Normocephalic Oral: Moist Mucosa, No Gingival or Mucosal Lesions/ Ulcerations Neck: Supple, No Nodes, Trachea Midline Lungs: Diminished, - - Forced end expiratory wheeze, Cardiovascular: Regular rate, Regular Rhythm, Normal S1, Normal S2, No murmurs, No rub noted, No Gallop Abdomen: Bowel Sounds Present, Soft, Non Tender, Obese Extremities: No clubbing, No cyanosis, No edema Skin: No rashes, No breakdown Musculoskeletal: - - Chronic left hip tenderness Lymphatic: - - No adenopathy Neurological: Neuro grossly intact Psych/Mental Status: Alert and oriented to time, place, person, mood and affect Vital Signs Temp Pulse Resp BP Pulse Ox 98.3 F 120 H 18 125/62 H 99 02/05/18 03:40 02/05/18 08:44 02/05/18 08:00 02/05/18 03:40 02/05/18 07:40 Oxygen Flow Rate (L/min) 3 Oxygen Delivery Method Nasal Cannula Weight: 216 lb 11.43 oz Body Mass Index (BMI) 39.6 Intake and Output for Last 24 Hours 02/03/18 02/04/18 02/05/18 23:59 23:59 23:59 Intake Total 672 / 672 1530 / 1530 50 / 50 Output Total 1350 / 1350 675 / 675 0 / 0 Balance -678 / -678 855 / 855 50 / 50 Microbiology Past 72 Hours 02/03/18 20:04 Respiratory Panel (PCR) - Final Mucosa - Nose Human [place] POC Glucose 02/05/18 02/04/1818 06:56 22:10 16:04 POC Glucose 231 H 284 H 275 H 02/04/18 11:13 POC Glucose 347 H Medical Necessity - Tobacco Use Smoking Status: Former smoker - 40 [id number] Tobacco Use: Cigarettes Assessment/Plan Active and Suspected Problems Acute on chronic respiratory failure with hypoxia and hypercapnia (Acute) COPD exacerbation (Acute) Possible pneumonia (Acute) RECOMMENDATIONS 1. Wean oxygen supplementation to keep saturations 88-92%. 2. Encourage incentive spirometer and chest physiotherapy 3. Increase activity as tolerated, continue PT 4. Continue aerosols and steroids 5. Continue ceftriaxone for now w/E-coli results 6. Ambulatory pulse ox prior to discharge 7. Patient can follow-up with her primary sane nurse upon discharge IMPRESSIONS 1. Acute on chronic combined respiratory failure Likely secondary to human metapneumovirus. No acute process seen on plain film chest x-ray. Initial fever of 100.0?F, otherwise afebrile with no white count. Patient does have some changes in color of sputum, was coughing up darker brown. Obtain sputum culture. Await infectious workup. Wean oxygen supplementation to keep saturations 88-92%, to prevent paradoxical CO2 retention. Transition to oral steroids. Increase activity as tolerated. Encourage incentive spirometer/Acapella. Patient will need a ambulatory pulse ox prior to discharge. She can follow-up with her primary sane nurse as previously scheduled. She should hold off on performing pulmonary function tests until her acute viral illness has resolved. 2. Encephalopathy Could be medication related, the patient had a recent procedure at [facility] and was given narcotics. Patient does does have evidence of chronic CO2 retention as well. This has improved overnight. She did wear BiPAP but states she is typically intolerant to it. 3. Self-reported COPD and asthma, self-reported PARESH Patient was reportedly wheezing presentation. No wheezing heard today on exam, however will keep on steroids but transition to oral today. Her shortness of breath/combined lung disease likely exacerbated secondary to viral infection. Patient sleep study about a year ago and is following with her primary sane nurse for this. Her pulmonary testing is not available to review at this time. She has refused noninvasive positive pressure therapy in the past. 4. Type 2 diabetes/GERD/hypertension/CAD/hypothyroidism Complicates care, management, recovery, and prognosis. Continue home medications as indicated. Insulin may need to be adjusted with steroid use. Thank you for the opportunity to participate in this patient's care, please not hesitate contact us with any further questions or concerns. This note was generated with [employer] software. It may contain incorrect words, spelling, and punctuation that were not noted in checking the note before signing.
--- NOTE | 2018-02-05 10:31 | PN_ITS ---
Patient Problems: Active and Suspected Problems Acute on chronic respiratory failure with hypoxia and hypercapnia (Acute) COPD exacerbation (Acute) Possible pneumonia (Acute) Subjective: Patient was seen and examined. She is lying in bed talking on the phone. Reports she feels terrible, complaining of left hip pain in her lungs rumbling and has a productive cough of brown to green sputum. Does not want to leave today. Objective: No new labs today. Culture data reviewed. No new imaging to review. Viral respiratory panel positive for human metapneumovirus. MRSA PCR was positive. Sputum culture and blood cultures are pending. Urine strep/Legionella antigens were negative. - Physical Exam General: Alert, Oriented x3, Cooperative, No apparent distress, - - Conversational dyspnea HEENT: Atraumatic, Normocephalic Oral: Moist Mucosa, No Gingival or Mucosal Lesions/ Ulcerations Neck: Supple, No Nodes, Trachea Midline Lungs: Diminished, - - Forced end expiratory wheeze, Cardiovascular: Regular rate, Regular Rhythm, Normal S1, Normal S2, No murmurs, No rub noted, No Gallop Abdomen: Bowel Sounds Present, Soft, Non Tender, Obese Extremities: No clubbing, No cyanosis, No edema Skin: No rashes, No breakdown Musculoskeletal: - - Chronic left hip tenderness Lymphatic: - - No adenopathy Neurological: Neuro grossly intact Psych/Mental Status: Alert and oriented to time, place, person, mood and affect Vital Signs Temp Pulse Resp BP Pulse Ox 98.3 F 120 H 18 125/62 H 99 02/05/18 03:40 02/05/18 08:44 02/05/18 08:00 02/05/18 03:40 02/05/18 07:40 Oxygen Flow Rate (L/min) 3 Oxygen Delivery Method Nasal Cannula Weight: 216 lb 11.43 oz Body Mass Index (BMI) 39.6 Intake and Output for Last 24 Hours 02/03/18 02/04/18 02/05/18 23:59 23:59 23:59 Intake Total 672 / 672 1530 / 1530 50 / 50 Output Total 1350 / 1350 675 / 675 0 / 0 Balance -678 / -678 855 / 855 50 / 50 Microbiology Past 72 Hours 02/03/18 20:04 Respiratory Panel (PCR) - Final Mucosa - Nose Human [place] POC Glucose 02/05/18 02/04/1818 06:56 22:10 16:04 POC Glucose 231 H 284 H 275 H 02/04/18 11:13 POC Glucose 347 H Medical Necessity - Tobacco Use Smoking Status: Former smoker - 40 [id number] Tobacco Use: Cigarettes Assessment/Plan Active and Suspected Problems Acute on chronic respiratory failure with hypoxia and hypercapnia (Acute) COPD exacerbation (Acute) Possible pneumonia (Acute) RECOMMENDATIONS 1. Wean oxygen supplementation to keep saturations 88-92%. 2. Encourage incentive spirometer and chest physiotherapy 3. Increase activity as tolerated, continue PT 4. Continue aerosols and steroids 5. Continue ceftriaxone for now w/E-coli results 6. Ambulatory pulse ox prior to discharge 7. Patient can follow-up with her primary transformer inspector upon discharge IMPRESSIONS 1. Acute on chronic combined respiratory failure Likely secondary to human metapneumovirus. No acute process seen on plain film chest x-ray. Initial fever of 100.0?F, otherwise afebrile with no white count. Patient does have some changes in color of sputum, was coughing up darker brown. Obtain sputum culture. Await infectious workup. Wean oxygen supplementation to keep saturations 88-92%, to prevent paradoxical CO2 retention. Transition to oral steroids. Increase activity as tolerated. Encourage incentive spirometer/Acapella. Patient will need a ambulatory pulse ox prior to discharge. She can follow-up with her primary transformer inspector as previously scheduled. She should hold off on performing pulmonary function tests until her acute viral illness has resolved. 2. Encephalopathy Could be medication related, the patient had a recent procedure at [facility] and was given narcotics. Patient does does have evidence of chronic CO2 retention as well. This has improved overnight. She did wear BiPAP but states she is typically intolerant to it. 3. Self-reported COPD and asthma, self-reported PARESH Patient was reportedly wheezing presentation. No wheezing heard today on exam, however will keep on steroids but transition to oral today. Her shortness of breath/combined lung disease likely exacerbated secondary to viral infection. Patient sleep study about a year ago and is following with her primary transformer inspector for this. Her pulmonary testing is not available to review at this time. She has refused noninvasive positive pressure therapy in the past. 4. Type 2 diabetes/GERD/hypertension/CAD/hypothyroidism Complicates care, management, recovery, and prognosis. Continue home medications as indicated. Insulin may need to be adjusted with steroid use. Thank you for the opportunity to participate in this patient's care, please not hesitate contact us with any further questions or concerns. This note was generated with [employer] software. It may contain incorrect words, spelling, and punctuation that were not noted in checking the note before signing.
[2018-02-05] MEDS: Isosorbide Mononitrate 30 MG Tablet 90 MG PO (10:39)
[2018-02-05] MEDS: Famotidine 20 MG Tablet PO ×2 (10:39→21:58)
[2018-02-05] MEDS: Senna Tablet 1 TABLET PO ×2 (10:39→21:53)
[2018-02-05] MEDS: Pantoprazole Sodium 40 MG Tablet PO ×2 (10:39→21:55)
[2018-02-05] MEDS: guaiFENesin 1,200 MG Tablet 1200 MG PO ×2 (10:39→21:52)
[2018-02-05] MEDS: Furosemide 40 MG Tablet PO ×2 (10:39→17:08)
[2018-02-05] MEDS: Polyethylene Glycol 3350 17 GM PACKET PO (10:40)
[2018-02-05] MEDS: APIXABAN 2.5 MG TABLET PO ×2 (10:40→21:54)
[2018-02-05] MEDS: Ceftriaxone 1 GM/50 ML BAG IV (10:41)
[2018-02-05] MEDS: oxyCODONE 5 MG Tablet PO ×2 (10:57→21:52)
--- NOTE | 2018-02-05 11:08 | PCM.DC ---
- Discharge Diagnoses Current Active Problems: Current Active and Chronic Problems Acute on chronic respiratory failure with hypoxia and hypercapnia (Acute) COPD exacerbation (Acute) Possible pneumonia (Acute) Reason(s) for Visit for Discharge Instructions: Shortness of breath You will use the following diet at home:: Calorie/Carbohydrate Controlled (specify 1200, 1400, etc), Cardiac Your food should be the consistency of: Regular Your liquids should be the consistency of: Regular/Thin Discharge Activity: Return to Normal Activity Additional Instructions: Continue to take your medications. You will need to use your breathing machine with medications every 4 hours as needed for shortness of breath. You will be followed up with home health for therapy and medication assistance. Keep a log of your blood sugars and show it to your primary care doctor. Follow-up with your primary care doctor for repeat blood work within 2 weeks and results of your blood and sputum cultures. Allergies/Adverse Reactions: Allergies ciprofloxacin [From Cipro] Allergy (Verified 02/03/18 15:46) Hives latex Allergy (Verified 02/03/18 15:46) matos me niacin [From Niaspan Extended-Release] Allergy (Verified 02/03/18 15:46) Hives ondansetron [From Zofran] Allergy (Verified 02/03/18 15:46) Unknown Xanthines Allergy (Verified 02/03/18 15:46) Unknown Penicillins Adverse Reaction (Mild, Verified 02/04/18 12:46) Itching/redness orphenadrine citrate [From Norgesic] Adverse Reaction (Verified 02/03/18 15:46) groggy medical tape Adverse Reaction (Uncoded 02/03/18 15:46) blisters Medications to take at Discharge Albuterol Inhaler [Ventolin Hfa] 2 puff INHALATION Q4H PRN PRN 02/03/18 Apixaban [Eliquis] 2.5 mg PO BID 02/03/18 Ascorbic Acid [Vitamin C] 500 mg PO DAILY@0800 02/03/18 Aspirin [Aspirin, Baby] 81 mg PO DAILY@0800 02/03/18 Atorvastatin Calcium [Lipitor] 40 mg PO QHS 02/03/18 Capsaicin 1 dose TP 4X/DAY 02/03/18 Diltiazem HCl [Cartia Xt] 180 mg PO DAILY 02/03/18 Docusate Sodium [Stool Softener] 100 mg PO DAILY PRN PRN 02/03/18 Duloxetine Hcl [Cymbalta] 60 mg PO DAILY 02/03/18 Estradiol 1 dose VG MOWEFR 02/03/18 Ferrous Gluconate 325 mg PO DAILY@0800 02/03/18 Fluticasone 0.05% [Flonase Nasal [place]] 2 spray NASAL DAILY 02/03/18 Furosemide [Lasix] 40 mg PO BIDLX 02/03/18 Insulin Glargine,Hum.rec.anlog [Lantus] 56 unit SQ BID 02/03/18 Insulin Lispro [Humalog KwikPen] 22 unit SQ LUNCH 02/03/18 Insulin Lispro [Humalog KwikPen] 24 unit SQ DINNER 02/03/18 Insulin Lispro [Humalog] 14 unit SQ BREAKFAST 02/03/18 Isosorbide Mononitrate [Imdur] 90 mg PO DAILY 02/03/18 Levothyroxine [Synthroid] 100 mcg PO DAILY 02/03/18 Metformin HCl [Metformin HCl ER] 1,000 mg PO BID 02/03/18 Oxycodone HCl [Roxicodone] 5 - 10 mg PO Q4H PRN 02/03/18 Pantoprazole Sodium [Protonix] 40 mg PO BID 02/03/18 Pregabalin [Lyrica] 100 mg PO TID 02/03/18 Sennosides [Claudia-Ramila] 8.6 mg PO BID 02/03/18 Sucralfate [Carafate] 1 gm PO 4X/DAY 02/03/18 proMETHazine tablet [Phenergan tablet] 25 mg PO Q6H PRN PRN 02/03/18 Glucerna Shake 120 ml PO 4X/DAY #100 liquid 02/05/18 Guaifenesin [Mucinex] 1,200 mg PO BID #20 tab 02/05/18 Ipratropium/Albuterol Sulfate [Duoneb] 3 ml INHALATION Q4H.RT #100 ampul.neb 02/05/18 Metoprolol Tartrate [Lopressor (beta sudhakar)] 100 mg PO BID #60 tab 02/05/18 Prednisone 10 mg PO UD #30 tab 02/05/18 The following prescriptions were given: Ipratropium/Albuterol Sulfate [Duoneb] 3 ml INHALATION Q4H.RT #100 ampul.neb Prednisone 10 mg PO UD #30 tab Guaifenesin [Mucinex] 1,200 mg PO BID #20 tab Metoprolol Tartrate [Lopressor (beta sudhakar)] 100 mg PO BID #60 tab Glucerna Shake 120 ml PO 4X/DAY #100 liquid Primary Care Physician: Bhupendra Oliveira MD [Primary Care Provider] - Please follow up with your Primary Care Physician in: within 2 weeks Please Follow Up With: Donal Morales MD When: within 2 weeks Proposed Discharge Date: 02/05/18
--- NOTE | 2018-02-05 11:22 | DS.PCM_ITS ---
Discharge Date and Diagnosis - Problem List Patient Problems: Active and Suspected Problems Acute on chronic respiratory failure with hypoxia and hypercapnia (Acute) COPD exacerbation (Acute) Possible pneumonia (Acute) Date of Admission: 02/03/18 Date of Discharge: 02/05/18 - Primary Discharge Diagnosis Active and Suspected Problems Acute on chronic respiratory failure with hypoxia and hypercapnia (Acute) COPD exacerbation (Acute) - Secondary Discharge Diagnosis Chronic Problems Diabetes mellitus type 2 in obese (Chronic) Coronary arteriosclerosis (Chronic) cath 05/2015 mild-moderate disease medical therapy recommended Hypothyroidism (Chronic) Hyperlipemia (Chronic) GERD (gastroesophageal reflux disease) (Chronic) Hypertension (Chronic) COPD (chronic obstructive pulmonary disease) (Chronic) Chronic respiratory insufficiency (Chronic) On home oxygen at night S/P PTCA (percutaneous transluminal coronary angioplasty) (Chronic) PARESH (obstructive sleep apnea) (Chronic) Hospital Course and Treatment Imaging Results: Clinical Impression(s) from Imaging Studies Chest X-Ray 02/03/18 16:30 IMPRESSION: No acute cardiopulmonary disease or interval change. Electronically Signed: Gurwinder Canela DO at 16:50 EDT Tel [phone], Service support , Chest X-Ray 02/04/18 05:55 IMPRESSION: Persistent pulmonary venous congestion and prominent interstitial markings, cannot exclude underlying edema. Mild cardiomegaly. Electronically Signed: Chantel Mahajan MD at 8:58 EDT Tel , Service support , Pulmonology Operations: None Procedures: None Summary of Care Provided: 63-year-old female with multiple comorbidities, recently underwent EGD and pyloromyotomy 4 days prior in the [facility] comes in with complaints of shortness of breath and confusion. Patient was brought in by the family with complaints of similar presentation anytime she had pneumonia. Patient was said to be lethargic and not answering questions on arrival to the ED. Vitals showed fever with temperature of 100 F, saturating 92% on 3 L of oxygen. Of note is that patient is on chronic home 3 L oxygen. Active management is as follows: 1. Acute on chronic COPD exacerbation secondary to human metapneumovirus, based on breathing treatment, IV Solu-Medrol, and therapy, BiPAP at night. Chest x-ray on admission showed no acute cardiopulmonary disease. Pneumonia was ruled out with repeat chest x-ray. Patient continued to improve and was at her home oxygen level. She had an acute exacerbation prior to her discharge because she had refused breathing treatments was in the hospital. Counseled patient on medication, compliance and discharged with prescription for nebulizer solution as well as oral steroid taper. 2. Acute on chronic combined respiratory failure, patient was managed initially on BiPAP and later transitioned to nasal cannula oxygen with improvement. She finally became stable at her home 3 L oxygen. Pulmonology team consulted. Patient will follow on discharge. 3. Obstructive sleep apnea, on BiPAP nightly. 4. CAD status post PTCA, on aspirin, statin, Eliquis, beta-sudhakar, nitrate, Lasix, Cardizem 5. Type 2 diabetes mellitus, recent HbA1c was 8.2, blood sugar slightly uncontrolled secondary to steroid use, her home oral hypoglycemic agents were held briefly, resumed on discharge. 6. Hypertension, stable 7. Hyperlipidemia, on statin. 8. Hypothyroidism, on Synthroid regimen. 9. Paroxysmal atrial fibrillation, patient had episodes of A. fib with RVR noted the last 2 days prior to discharge, changes were made to her home metoprolol to 100mg 3 times daily, patient's heart rate improved. 10. GERD, on PPI. 11. Obesity, encouraged diet and lifestyle modifications. Discharge Diet: Low fat/ Low Cholesterol, 2000 mg Sodium Diet, Carb Control Diet Discharge Activity: Return to Normal Activity Home Medications: Medications to take at Discharge Albuterol Inhaler [Ventolin Hfa] 2 puff INHALATION Q4H PRN PRN 02/03/18 Apixaban [Eliquis] 2.5 mg PO BID 02/03/18 Ascorbic Acid [Vitamin C] 500 mg PO DAILY@0800 02/03/18 Aspirin [Aspirin, Baby] 81 mg PO DAILY@0800 02/03/18 Atorvastatin Calcium [Lipitor] 40 mg PO QHS 02/03/18 Capsaicin 1 dose TP 4X/DAY 02/03/18 Diltiazem HCl [Cartia Xt] 180 mg PO DAILY 02/03/18 Docusate Sodium [Stool Softener] 100 mg PO DAILY PRN PRN 02/03/18 Duloxetine Hcl [Cymbalta] 60 mg PO DAILY 02/03/18 Estradiol 1 dose VG MOWEFR 02/03/18 Ferrous Gluconate 325 mg PO DAILY@0800 02/03/18 Fluticasone 0.05% [Flonase Nasal [place]] 2 spray NASAL DAILY 02/03/18 Furosemide [Lasix] 40 mg PO BIDLX 02/03/18 Insulin Glargine,Hum.rec.anlog [Lantus] 56 unit SQ BID 02/03/18 Insulin Lispro [Humalog KwikPen] 22 unit SQ LUNCH 02/03/18 Insulin Lispro [Humalog KwikPen] 24 unit SQ DINNER 02/03/18 Insulin Lispro [Humalog] 14 unit SQ BREAKFAST 02/03/18 Isosorbide Mononitrate [Imdur] 90 mg PO DAILY 02/03/18 Levothyroxine [Synthroid] 100 mcg PO DAILY 02/03/18 Metformin HCl [Metformin HCl ER] 1,000 mg PO BID 02/03/18 Oxycodone HCl [Roxicodone] 5 - 10 mg PO Q4H PRN 02/03/18 Pantoprazole Sodium [Protonix] 40 mg PO BID 02/03/18 Pregabalin [Lyrica] 100 mg PO TID 02/03/18 Sennosides [Claudia-Ramila] 8.6 mg PO BID 02/03/18 Sucralfate [Carafate] 1 gm PO 4X/DAY 02/03/18 proMETHazine tablet [Phenergan tablet] 25 mg PO Q6H PRN PRN 02/03/18 Glucerna Shake 120 ml PO 4X/DAY #100 liquid 02/05/18 Guaifenesin [Mucinex] 1,200 mg PO BID #20 tab 02/05/18 Ipratropium/Albuterol Sulfate [Duoneb] 3 ml INHALATION Q4H.RT #100 ampul.neb Metoprolol Tartrate [Lopressor (beta sudhakar)] 100 mg PO BID #60 tab 02/05/18 Prednisone 10 mg PO UD #30 tab 02/05/18 Following Prescrptions Were Given to Patient: Ipratropium/Albuterol Sulfate [Duoneb] 3 ml INHALATION Q4H.RT #100 ampul.neb Prednisone 10 mg PO UD #30 tab Guaifenesin [Mucinex] 1,200 mg PO BID #20 tab Metoprolol Tartrate [Lopressor (beta sudhakar)] 100 mg PO BID #60 tab Glucerna Shake 120 ml PO 4X/DAY #100 liquid Primary Care Physician: Bhupendra Oliveira MD [Primary Care Provider] - Please follow up with your Primary Care Physician in: within 2 weeks Please Follow Up With: Donal Morales MD When: within 2 weeks Disposition: Home with Home Health Minutes spent on discharge:: 45 Patient Condition:: Stable Medical Necessity - Tobacco Use Smoking Status: Former smoker - 40 [id number] Tobacco Use: Cigarettes Meaningful Use Info Meaningful Use Diagnoses (Choose all that apply): None applicable Code Visit Inpatient E&M: 44199 Disch Hosp
[2018-02-05 11:56] LABS: Bedside Glucose 294 mg/dL (70-110)
--- NOTE | 2018-02-05 12:02 | CASEMGMT ---
BLAKE spoke with patient. She has a medical alert button from [facility] and needs to return it as she now has one through [employer]. BLAKE spoke with aSdia in volunteer services and patient just needs to have someone bring the unit in to any of the information desks. SW told patient this information and she does not have anyone that can do this. BLAKE called Sadia back and left her a voice mail letting her know and asking if someone would be able to pick it up at patient's home. Await return call. BLAKE also called [facility] and let Brenna on the coverage line know patient is being d/c today with [facility] intermediate, PT, and OT. BLAKE also spoke with CM at patient's PCP's office. She was inquiring if patient may be able to get in for a sleep study so she can get a bi-pap. They have been working on this from their office. BLAKE did see something in the computer for February 23 so BLAKE called [facility] sleep lab to see if this is a sleep study. There was no answer so BLAKE left a vm requesting a return call. Physician indicated patient will need to follow up with Pulmonary Dr and PCP for sleep study. Plan: d/c home with resumption of [employer] services as well as intermediate, PT, and OT through [facility]. Charley ROLAND MSW
[2018-02-05] MEDS: Glucerna Shake 120 ML LIQUID PO ×3 (14:49→17:08)
--- NOTE | 2018-02-05 16:12 | CHAPLAIN ---
Type of Pastoral Visit _x__ Initial Visit ___ Follow-up Visit ___ On-call Visit ___ General Patient Visit ___ Spiritual Assessment ___ Family Conference ___ Bereavement ___ Rapid Response ___ Code Blue ___ Other (describe below) Pastoral Care Referral From _x__ Patient ___ Family ___ Nurse ___ Physician ___ Social Media Content Manager ___ Back Tender Cloth Printing ___ Other (describe below) Sacrament/Intervention _x__ Active listening ___ Anointing ___ Orthodoxy ___ Bereavement ___ Communion _x__ Eileen exploration ___ _x__ Life review _x__ Prayer ___ Reconciliation ___ Sacrament of Sick _x__ Supportive presence ___ Wedding ___ Other (describe below) Pastoral Comments patient says that she may be going home today and that is good news to her; pt talks about life and family; pt expresses that she is ready to and would welcome going home to [facility] and seeing Chris and my mother again; pt asks for prayer for her family; pt has five children and a number of grandchildren; pt says while I would like to see my grandchildren grow up, I am concerned about my children and their eileen or lack of eileen in God:;
[2018-02-05 17:26] LABS: Bedside Glucose 171 mg/dL (70-110)
--- NOTE | 2018-02-05 20:11 | PCM.PN.HOSP ---
Patient Problems: Active and Suspected Problems Acute on chronic respiratory failure with hypoxia and hypercapnia (Acute) COPD exacerbation (Acute) Possible pneumonia (Acute) Subjective: Patient was seen and examined. Feels improved. On same home oxygen level. Coughing up more. Telemetry is showing Alejandro hanson with RVR with HR >120s, given her usual metoprolol 50mg earlier yesterday with effect. Denies fever, chills, chest pain. Vitals/I&O's: Vital Signs Temp Pulse Resp BP Pulse Ox 98.0 F 89 18 85/67 L 98 02/05/18 14:00 02/05/18 15:07 02/05/18 15:07 02/05/18 14:00 02/05/18 14:00 Oxygen Flow Rate (L/min) 3 Oxygen Delivery Method Nasal Cannula Weight: 98.3 kg Body Mass Index (BMI) 39.6 Intake and Output for Last 24 Hours 02/03/18 02/04/18 02/05/18 23:59 23:59 23:59 Intake Total 672 / 672 1530 / 1530 350 / 350 Output Total 1350 / 1350 675 / 675 0 / 0 Balance -678 / -678 855 / 855 350 / 350 General: Alert, Oriented x3, Cooperative, No apparent distress, - - obese, on 3L oxygen HEENT: Atraumatic, PERRLA, EOMI, Normocephalic Oral: Moist Mucosa Neck: Supple Lungs: Normal air movement, Diminished, Wheezes - Scattered all over the chest Cardiovascular: Regular rate, No murmurs Abdomen: Bowel Sounds Present, Soft, Non Tender Extremities: No edema Skin: No rashes Musculoskeletal: No Tenderness to Palpation of Joints or Extremities Lymphatic: No Cervical, Supraclavicular, or Inguinal Adenopathy Neurological: Cranial nerves II-XII grossly intact Psych/Mental Status: Normal Affect, Appropriate Microbiology Past 72 Hours 02/03/18 20:04 Mucosa - Nose Respiratory Panel (PCR) - Final Human [place] Laboratory Results 02/04/18 22:10: POC Glucose 284 H 02/05/18 06:56: POC Glucose 231 H 02/05/18 11:40: POC Glucose 294 H 02/05/18 17:06: POC Glucose 171 H Current Medications Acetaminophen (Tylenol) 650 mg PO Q6H PRN PRN PRN Reason: Mild Pain (scale 0-3)/T>100.7 Last Admin: 02/04/18 18:27 Dose: 650 mg Al Hydroxide/Mg Hydroxide (Mylanta Ii) 30 ml PO Q6H PRN PRN PRN Reason: Gastric Burning Albuterol Sulfate (Ventolin Aerosols) 2.5 mg INHALATION Q2H PRN PRN PRN Reason: SHORTNESS OF BREATH Albuterol/Ipratropium (Duoneb) 3 ml INHALATION Q4H.RT [facility] Last Admin: 02/05/18 15:07 Dose: 3 ml Apixaban (Eliquis) 2.5 mg PO BID [facility] Last Admin: 02/05/18 10:40 Dose: 2.5 mg Ascorbic Acid (Vitamin C) 500 mg PO DAILY@0800 [facility] Last Admin: 02/05/18 08:11 Dose: 500 mg Aspirin (Aspirin, Baby) 81 mg PO DAILY@0800 [facility] Last Admin: 02/05/18 08:10 Dose: 81 mg Atorvastatin Calcium (Lipitor) 40 mg PO QHS [facility] Last Admin: 02/04/18 22:30 Dose: 40 mg Bisacodyl (Dulcolax) 10 mg RECTAL DAILY PRN PRN PRN Reason: Constipation Diltiazem HCl (Cardizem Cd) 180 mg PO DAILY [facility] Last Admin: 02/05/18 08:46 Dose: 180 mg Docusate Sodium (Colace) 200 mg PO BID PRN PRN PRN Reason: Constipation Duloxetine HCl (Cymbalta) 60 mg PO DAILY [facility] Last Admin: 02/05/18 08:45 Dose: 60 mg Famotidine (Pepcid) 20 mg PO BID [facility] Last Admin: 02/05/18 10:39 Dose: 20 mg Ferrous Gluconate (Ferrous Gluconate) 325 mg PO DAILY@0800 [facility] Last Admin: 02/05/18 08:11 Dose: 325 mg Fluticasone Propionate (Flonase Nasal [place]) 2 spray NASAL DAILY [facility] Last Admin: 02/05/18 08:11 Dose: 2 spray Furosemide (Lasix) 40 mg PO BIDLX [facility] Last Admin: 02/05/18 17:08 Dose: 40 mg Guaifenesin (Mucinex) 1,200 mg PO BID [facility] Last Admin: 02/05/18 10:39 Dose: 1,200 mg Ceftriaxone Sodium (Rocephin) 1 gm in 50 mls @ 100 mls/hr IV Q24 [facility] Last Admin: 02/05/18 10:41 Dose: 100 mls/hr Insulin Aspart (Novolog Flexpen (Bkc)) 14 units SC BREAKFAST [facility] Last Admin: 02/05/18 08:12 Dose: 14 u Insulin Aspart (Novolog Flexpen (Bkc)) 22 units SC LUNCH [facility] Last Admin: 02/05/18 11:43 Dose: 22 u Insulin Aspart (Novolog Flexpen (Bkc)) 24 units SC DINNER [facility] Last Admin: 02/05/18 17:11 Dose: 24 u Insulin Detemir (Levemir ([facility])) 40 units SC BID [facility] Last Admin: 02/05/18 10:40 Dose: 40 u Isosorbide Mononitrate (Imdur) 90 mg PO DAILY [facility] Last Admin: 02/05/18 10:39 Dose: 90 mg Levothyroxine Sodium (Synthroid) 100 mcg PO DAILY@0600 [facility] Last Admin: 02/05/18 05:53 Dose: 100 mcg Metformin [facility] ([facility]r) [facility] Last Admin: 02/05/18 17:08 Dose: 1,000 mg Methylprednisolone (Solu-Medrol) 40 mg IV Q8 [facility] Last Admin: 02/05/18 14:44 Dose: 40 mg Metoprolol Tartrate (Lopressor (Beta Sudhakar)) 100 mg PO BID [facility] Morphine Sulfate () 1 - 2 mg IV Q4H PRN PRN PRN Reason: SEVERE PAIN (6-10/10) Nutritional Formula (Lactose Free) (Glucerna Shake) 120 ml PO 4X/DAY [facility] Last Admin: 02/05/18 17:08 Dose: 120 ml Ondansetron HCl (Zofran) 4 mg IV Q8H PRN PRN PRN Reason: Nausea Oxycodone HCl (Oxyir) 5 mg PO Q4H PRN PRN PRN Reason: Moderate Pain (pain scale 4-5) Last Admin: 02/05/18 10:57 Dose: 5 mg Pantoprazole Sodium (Protonix) 40 mg PO BID [facility] Last Admin: 02/05/18 10:39 Dose: 40 mg Polyethylene Glycol (Miralax) 17 gm PO DAILY [facility] Last Admin: 02/05/18 10:40 Dose: 17 gm Promethazine HCl (Phenergan Tablet) 25 mg PO Q6H PRN PRN PRN Reason: NAUSEA Last Admin: 02/04/18 22:14 Dose: 25 mg Senna (Senokot) 1 tablet PO BID [facility] Last Admin: 02/05/18 10:39 Dose: 1 tablet Sodium Chloride () 5 - 30 ml IV UD PRN PRN Reason: SALINE FLUSH Last Admin: 02/05/18 14:44 Dose: 10 ml Sucralfate (Carafate) 1 gm PO 1HR_ACHS [facility] Last Admin: 02/05/18 16:30 Dose: 1 gm Zolpidem Tartrate (Ambien (Generic)) 5 mg PO QHS PRN PRN PRN Reason: INSOMNIA Medical Necessity - Tobacco Use Smoking Status: Former smoker - 40 [id number] Tobacco Use: Cigarettes Assessment/Plan Active and Suspected Problems Acute on chronic respiratory failure with hypoxia and hypercapnia (Acute) COPD exacerbation (Acute) Possible pneumonia (Acute) 1. Acute on chronic COPD exacerbation secondary to human metapneumovirus, improving, will continue oral steroids, breathing treatments, on discharge. 2. Acute on chronic combined respiratory failure, currently on home 3L oxygen, will continue the same supplemental oxygen to maintain O2 at or above 90%. BiPAP nightly. 3. Obstructive sleep apnea-BiPAP nightly. 4. CAD status post PTCA, on aspirin, statin, Eliquis, beta-sudhakar, nitrate, Lasix, Cardizem 5. Type 2 diabetes mellitus-continue home oral regimen. Accu-Cheks before meals at bedtime with sliding scale insulin. Continue home short and long-acting insulin regimen. Most recent hemoglobin A1c February 2016 8.2%. 6. Hypertension-stable, continue home regimen. 7. Hyperlipidemia-continue statin. 8. Hypothyroidism-continue Synthroid regimen. 9. Paroxysmal atrial fibrillation-rate controlled. Continue Cardizem, metoprolol, Eliquis. 10. GERD-continue PPI. 11. Obesity-encouraged diet and lifestyle modifications. DVT prophylaxis-Eliquis. Code Visit Inpatient E&M: 69732 [facility] Hosp L2
--- NOTE | 2018-02-05 20:28 | PN_ITS ---
Patient Problems: Active and Suspected Problems Acute on chronic respiratory failure with hypoxia and hypercapnia (Acute) COPD exacerbation (Acute) Possible pneumonia (Acute) Subjective: Patient was seen and examined. Feels improved. On same home oxygen level. Coughing up more. Telemetry is showing Alejandro hanson with RVR with HR >120s, given her usual metoprolol 50mg earlier yesterday with effect. Denies fever, chills, chest pain. Vitals/I&O's: Vital Signs Temp Pulse Resp BP Pulse Ox 98.0 F 89 18 85/67 L 98 02/05/18 14:00 02/05/18 15:07 02/05/18 15:07 02/05/18 14:00 02/05/18 14:00 Oxygen Flow Rate (L/min) 3 Oxygen Delivery Method Nasal Cannula Weight: 98.3 kg Body Mass Index (BMI) 39.6 Intake and Output for Last 24 Hours 02/03/18 02/04/18 02/05/18 23:59 23:59 23:59 Intake Total 672 / 672 1530 / 1530 350 / 350 Output Total 1350 / 1350 675 / 675 0 / 0 Balance -678 / -678 855 / 855 350 / 350 General: Alert, Oriented x3, Cooperative, No apparent distress, - - obese, on 3L oxygen HEENT: Atraumatic, PERRLA, EOMI, Normocephalic Oral: Moist Mucosa Neck: Supple Lungs: Normal air movement, Diminished, Wheezes - Scattered all over the chest Cardiovascular: Regular rate, No murmurs Abdomen: Bowel Sounds Present, Soft, Non Tender Extremities: No edema Skin: No rashes Musculoskeletal: No Tenderness to Palpation of Joints or Extremities Lymphatic: No Cervical, Supraclavicular, or Inguinal Adenopathy Neurological: Cranial nerves II-XII grossly intact Psych/Mental Status: Normal Affect, Appropriate Microbiology Past 72 Hours 02/03/18 20:04 Mucosa - Nose Respiratory Panel (PCR) - Final Human [place] Laboratory Results 02/04/18 22:10: POC Glucose 284 H 02/05/18 06:56: POC Glucose 231 H 02/05/18 11:40: POC Glucose 294 H 02/05/18 17:06: POC Glucose 171 H Current Medications Acetaminophen (Tylenol) 650 mg PO Q6H PRN PRN PRN Reason: Mild Pain (scale 0-3)/T>100.7 Last Admin: 02/04/18 18:27 Dose: 650 mg Al Hydroxide/Mg Hydroxide (Mylanta Ii) 30 ml PO Q6H PRN PRN PRN Reason: Gastric Burning Albuterol Sulfate (Ventolin Aerosols) 2.5 mg INHALATION Q2H PRN PRN PRN Reason: SHORTNESS OF BREATH Albuterol/Ipratropium (Duoneb) 3 ml INHALATION Q4H.RT [facility] Last Admin: 02/05/18 15:07 Dose: 3 ml Apixaban (Eliquis) 2.5 mg PO BID [facility] Last Admin: 02/05/18 10:40 Dose: 2.5 mg Ascorbic Acid (Vitamin C) 500 mg PO DAILY@0800 [facility] Last Admin: 02/05/18 08:11 Dose: 500 mg Aspirin (Aspirin, Baby) 81 mg PO DAILY@0800 [facility] Last Admin: 02/05/18 08:10 Dose: 81 mg Atorvastatin Calcium (Lipitor) 40 mg PO QHS [facility] Last Admin: 02/04/18 22:30 Dose: 40 mg Bisacodyl (Dulcolax) 10 mg RECTAL DAILY PRN PRN PRN Reason: Constipation Diltiazem HCl (Cardizem Cd) 180 mg PO DAILY [facility] Last Admin: 02/05/18 08:46 Dose: 180 mg Docusate Sodium (Colace) 200 mg PO BID PRN PRN PRN Reason: Constipation Duloxetine HCl (Cymbalta) 60 mg PO DAILY [facility] Last Admin: 02/05/18 08:45 Dose: 60 mg Famotidine (Pepcid) 20 mg PO BID [facility] Last Admin: 02/05/18 10:39 Dose: 20 mg Ferrous Gluconate (Ferrous Gluconate) 325 mg PO DAILY@0800 [facility] Last Admin: 02/05/18 08:11 Dose: 325 mg Fluticasone Propionate (Flonase Nasal [place]) 2 spray NASAL DAILY [facility] Last Admin: 02/05/18 08:11 Dose: 2 spray Furosemide (Lasix) 40 mg PO BIDLX [facility] Last Admin: 02/05/18 17:08 Dose: 40 mg Guaifenesin (Mucinex) 1,200 mg PO BID [facility] Last Admin: 02/05/18 10:39 Dose: 1,200 mg Ceftriaxone Sodium (Rocephin) 1 gm in 50 mls @ 100 mls/hr IV Q24 [facility] Last Admin: 02/05/18 10:41 Dose: 100 mls/hr Insulin Aspart (Novolog Flexpen (Bkc)) 14 units SC BREAKFAST [facility] Last Admin: 02/05/18 08:12 Dose: 14 u Insulin Aspart (Novolog Flexpen (Bkc)) 22 units SC LUNCH [facility] Last Admin: 02/05/18 11:43 Dose: 22 u Insulin Aspart (Novolog Flexpen (Bkc)) 24 units SC DINNER [facility] Last Admin: 02/05/18 17:11 Dose: 24 u Insulin Detemir (Levemir ([facility])) 40 units SC BID [facility] Last Admin: 02/05/18 10:40 Dose: 40 u Isosorbide Mononitrate (Imdur) 90 mg PO DAILY [facility] Last Admin: 02/05/18 10:39 Dose: 90 mg Levothyroxine Sodium (Synthroid) 100 mcg PO DAILY@0600 [facility] Last Admin: 02/05/18 05:53 Dose: 100 mcg Metformin [facility] ([facility]) [facility] Last Admin: 02/05/18 17:08 Dose: 1,000 mg Methylprednisolone (Solu-Medrol) 40 mg IV Q8 [facility] Last Admin: 02/05/18 14:44 Dose: 40 mg Metoprolol Tartrate (Lopressor (Beta Sudhakar)) 100 mg PO BID [facility] Morphine Sulfate () 1 - 2 mg IV Q4H PRN PRN PRN Reason: SEVERE PAIN (6-10/10) Nutritional Formula (Lactose Free) (Glucerna Shake) 120 ml PO 4X/DAY [facility] Last Admin: 02/05/18 17:08 Dose: 120 ml Ondansetron HCl (Zofran) 4 mg IV Q8H PRN PRN PRN Reason: Nausea Oxycodone HCl (Oxyir) 5 mg PO Q4H PRN PRN PRN Reason: Moderate Pain (pain scale 4-5) Last Admin: 02/05/18 10:57 Dose: 5 mg Pantoprazole Sodium (Protonix) 40 mg PO BID [facility] Last Admin: 02/05/18 10:39 Dose: 40 mg Polyethylene Glycol (Miralax) 17 gm PO DAILY [facility] Last Admin: 02/05/18 10:40 Dose: 17 gm Promethazine HCl (Phenergan Tablet) 25 mg PO Q6H PRN PRN PRN Reason: NAUSEA Last Admin: 02/04/18 22:14 Dose: 25 mg Senna (Senokot) 1 tablet PO BID [facility] Last Admin: 02/05/18 10:39 Dose: 1 tablet Sodium Chloride () 5 - 30 ml IV UD PRN PRN Reason: SALINE FLUSH Last Admin: 02/05/18 14:44 Dose: 10 ml Sucralfate (Carafate) 1 gm PO 1HR_ACHS [facility] Last Admin: 02/05/18 16:30 Dose: 1 gm Zolpidem Tartrate (Ambien (Generic)) 5 mg PO QHS PRN PRN PRN Reason: INSOMNIA Medical Necessity - Tobacco Use Smoking Status: Former smoker - 40 [id number] Tobacco Use: Cigarettes Assessment/Plan Active and Suspected Problems Acute on chronic respiratory failure with hypoxia and hypercapnia (Acute) COPD exacerbation (Acute) Possible pneumonia (Acute) 1. Acute on chronic COPD exacerbation secondary to human metapneumovirus, improving, will continue oral steroids, breathing treatments, on discharge. 2. Acute on chronic combined respiratory failure, currently on home 3L oxygen, will continue the same supplemental oxygen to maintain O2 at or above 90%. BiPAP nightly. 3. Obstructive sleep apnea-BiPAP nightly. 4. CAD status post PTCA, on aspirin, statin, Eliquis, beta-sudhakar, nitrate, Lasix, Cardizem 5. Type 2 diabetes mellitus-continue home oral regimen. Accu-Cheks before meals at bedtime with sliding scale insulin. Continue home short and long- acting insulin regimen. Most recent hemoglobin A1c February 2016 8.2%. 6. Hypertension-stable, continue home regimen. 7. Hyperlipidemia-continue statin. 8. Hypothyroidism-continue Synthroid regimen. 9. Paroxysmal atrial fibrillation-rate controlled. Continue Cardizem, metoprolol, Eliquis. 10. GERD-continue PPI. 11. Obesity-encouraged diet and lifestyle modifications. DVT prophylaxis-Eliquis. Code Visit Inpatient E&M: 33859 [facility] Hosp L2
[2018-02-05] MEDS: Zolpidem Tartrate 5 MG Tablet PO (21:51)
[2018-02-05] MEDS: Atorvastatin Calcium 40 MG Tablet PO (21:54)
[2018-02-05] MEDS: Metoprolol Tartrate 100 MG Tablet PO (22:00)
[2018-02-05 23:01] LABS: Bedside Glucose 193 mg/dL (70-110)
[2018-02-06] VITALS (13 sets, daily range): BP systolic 133–188; BP diastolic 93–174; PULSE 69–120; RESP 12–38; TEMP 36.4–36.7; O2SAT 94–99
--- NOTE | 2018-02-06 02:00 | NURSING ---
This nurse took over care of this pt. at this time. Report received from RN.
[2018-02-06] MEDS: Levothyroxine 100 MCG Tablet PO (06:05)
[2018-02-06] MEDS: Sucralfate 1 GM Tablet PO ×3 (06:05→17:24)
[2018-02-06] MEDS: 0.9% NaCl Peripheral Flush Adult/Peds IV (06:06)
[2018-02-06] MEDS: oxyCODONE 5 MG Tablet PO (06:34)
[2018-02-06 06:46] LABS: Bedside Glucose 215 mg/dL (70-110)
[2018-02-06] MEDS: dilTIAZem CD 180 MG Capsule PO (09:07)
[2018-02-06] MEDS: Ascorbic Acid 500 MG Tablet PO (09:08)
[2018-02-06] MEDS: Famotidine 20 MG Tablet PO (09:08)
[2018-02-06] MEDS: Ceftriaxone 1 GM/50 ML BAG IV (09:08)
[2018-02-06] MEDS: Furosemide 40 MG Tablet PO ×2 (09:08→17:24)
[2018-02-06] MEDS: Isosorbide Mononitrate 30 MG Tablet 90 MG PO (09:08)
[2018-02-06] MEDS: Pantoprazole Sodium 40 MG Tablet PO (09:08)
[2018-02-06] MEDS: Ferrous Gluconate 325 MG Tablet PO (09:08)
[2018-02-06] MEDS: Senna Tablet 1 TABLET PO (09:08)
[2018-02-06] MEDS: Metoprolol Tartrate 100 MG Tablet PO (09:08)
[2018-02-06] MEDS: DULoxetine Hcl 60 MG Capsule PO (09:08)
[2018-02-06] MEDS: Polyethylene Glycol 3350 17 GM PACKET PO (09:09)
[2018-02-06] MEDS: Aspirin 81 MG TAB.CHEW PO (09:17)
[2018-02-06] MEDS: Ipratropium/Albuterol Sulfate 3 ML AMPUL.NEB INHALATION ×2 (09:31→14:37)
[2018-02-06] MEDS: Glucerna Shake 120 ML LIQUID PO ×2 (10:34→15:33)
[2018-02-06] MEDS: APIXABAN 2.5 MG TABLET PO (10:34)
[2018-02-06] MEDS: Fluticasone 0.05% 1 SPRAY NASAL.SRY 2 SPRAY NASAL (10:34)
[2018-02-06] MEDS: guaiFENesin 1,200 MG Tablet 1200 MG PO (10:34)
--- NOTE | 2018-02-06 10:49 | PCM.PROGNOTE ---
Patient Problems: Active and Suspected Problems Acute on chronic respiratory failure with hypoxia and hypercapnia (Acute) COPD exacerbation (Acute) Possible pneumonia (Acute) Subjective: The patient was seen and examined. Patient was to be discharged yesterday but her blood pressure medications were adjusted and blood pressure was low 85/67. Nursing staff in the room during my examination, the patient was in moderate respiratory distress. Her blood pressure was elevated accordingly. Maintaining appropriate saturations on 3 L of oxygen. She was placed on BiPAP therapy with subjective improvement. Objective: No new lab work or imaging to review. Culture data reviewed. Viral respiratory panel positive for human metapneumovirus. MRSA PCR was positive. Sputum culture and blood cultures are pending. Urine strep/Legionella antigens were negative. Urine culture showing presumptive E. coli. - Physical Exam General: Alert, Oriented x3 HEENT: Atraumatic, Normocephalic Oral: No Gingival or Mucosal Lesions/ Ulcerations, Dry Mucosa Neck: Supple, No Nodes, Trachea Midline Lungs: Diminished, Rhonchi, - - few exp wheezes Cardiovascular: Regular rate, Regular Rhythm, Normal S1, Normal S2, No murmurs Abdomen: Bowel Sounds Present, Soft, Non Tender, Obese Extremities: No clubbing, No cyanosis, No edema Skin: - - No changes from previous Musculoskeletal: No Tenderness to Palpation of Joints or Extremities Lymphatic: No Cervical, Supraclavicular, or Inguinal Adenopathy Neurological: Neuro grossly intact Psych/Mental Status: Anxious, Restless, - - Alert and oriented but dyspneic. Vital Signs Temp Pulse Resp BP Pulse Ox 97.6 F L 95 20 H 145/94 H 94 02/06/18 10:23 02/06/18 10:23 02/06/18 10:23 02/06/18 10:23 02/06/18 10:23 Oxygen Flow Rate (L/min) 3 Oxygen Delivery Method Bi-pap Weight: 216 lb 11.43 oz Body Mass Index (BMI) 39.6 Intake and Output for Last 24 Hours 02/04/18 02/05/18 02/06/18 23:59 23:59 23:59 Intake Total 1530 / 1530 350 / 350 350 / 350 Output Total 675 / 675 0 / 0 Balance 855 / 855 350 / 350 350 / 350 Microbiology Past 72 Hours 02/05/18 07:05 Gram Stain - Final Sputum, Expectorated/Coughed 02/03/18 20:04 Respiratory Panel (PCR) - Final Mucosa - Nose Human [place] POC Glucose 02/06/18 02/05/18 02/05/18 06:41 22:52 17:06 POC Glucose 215 H 193 H 171 H 02/05/18 11:40 POC Glucose 294 H Medical Necessity - Tobacco Use Smoking Status: Former smoker - 40 [id number] Tobacco Use: Cigarettes Assessment/Plan Active and Suspected Problems Acute on chronic respiratory failure with hypoxia and hypercapnia (Acute) COPD exacerbation (Acute) Possible pneumonia (Acute) RECOMMENDATIONS 1. Wean oxygen supplementation to keep saturations 88-92%. 2. Encourage incentive spirometer and chest physiotherapy 3. Increase activity as tolerated, continue PT 4. Continue aerosols and steroids, please encourage patient to be compliant 5. BiPAP PRN during day and qHS 6. Ambulatory pulse ox prior to discharge 7. Patient can follow-up with her primary decoration checker upon discharge IMPRESSIONS 1. Acute on chronic combined respiratory failure Likely secondary to human metapneumovirus. No acute process seen on plain film chest x-ray. Initial fever of 100.0?F, otherwise afebrile with no white count. Patient does have some changes in color of sputum, was coughing up darker brown. Await infectious workup. Wean oxygen supplementation to keep saturations 88-92%, to prevent paradoxical CO2 retention. Transition to oral steroids. Increase activity as tolerated. Encourage incentive spirometer/Acapella. Patient will need a ambulatory pulse ox prior to discharge. She can follow-up with her primary decoration checker as previously scheduled. She should hold off on performing pulmonary function tests until her acute viral illness has resolved. 2. Encephalopathy Could be medication related, the patient had a recent procedure at [facility] and was given narcotics. Patient does does have evidence of chronic CO2 retention as well. This has improved. She did wear BiPAP but states she is typically intolerant to it. 3. Self-reported COPD and asthma, self-reported PARESH Patient was reportedly wheezing presentation. Her shortness of breath/combined lung disease likely exacerbated secondary to viral infection. Patient had sleep study about a year ago and is following with her primary decoration checker for this. Her pulmonary testing is not available to review at this time. She has refused noninvasive positive pressure therapy in the past, however does help her dyspnea when she wears it. Continue BiPAP PRN throughout day and qHS. 4. Type 2 diabetes/GERD/hypertension/CAD/hypothyroidism Complicates care, management, recovery, and prognosis. Continue home medications as indicated. Insulin may need to be adjusted with steroid use/hyperglycemia. Thank you for the opportunity to participate in this patient's care, please not hesitate contact us with any further questions or concerns. This note was generated with [employer] dictation software. It may contain incorrect words, spelling, and punctuation that were not noted in checking the note before signing.
[2018-02-06] MEDS: Albuterol 2.5 MG/3 ML VIAL.NEB. INHALATION (10:58)
--- NOTE | 2018-02-06 11:01 | PN_ITS ---
Patient Problems: Active and Suspected Problems Acute on chronic respiratory failure with hypoxia and hypercapnia (Acute) COPD exacerbation (Acute) Possible pneumonia (Acute) Subjective: The patient was seen and examined. Patient was to be discharged yesterday but her blood pressure medications were adjusted and blood pressure was low 85/67. Nursing staff in the room during my examination, the patient was in moderate respiratory distress. Her blood pressure was elevated accordingly. Maintaining appropriate saturations on 3 L of oxygen. She was placed on BiPAP therapy with subjective improvement. Objective: No new lab work or imaging to review. Culture data reviewed. Viral respiratory panel positive for human metapneumovirus. MRSA PCR was positive. Sputum culture and blood cultures are pending. Urine strep/Legionella antigens were negative. Urine culture showing presumptive E. coli. - Physical Exam General: Alert, Oriented x3 HEENT: Atraumatic, Normocephalic Oral: No Gingival or Mucosal Lesions/ Ulcerations, Dry Mucosa Neck: Supple, No Nodes, Trachea Midline Lungs: Diminished, Rhonchi, - - few exp wheezes Cardiovascular: Regular rate, Regular Rhythm, Normal S1, Normal S2, No murmurs Abdomen: Bowel Sounds Present, Soft, Non Tender, Obese Extremities: No clubbing, No cyanosis, No edema Skin: - - No changes from previous Musculoskeletal: No Tenderness to Palpation of Joints or Extremities Lymphatic: No Cervical, Supraclavicular, or Inguinal Adenopathy Neurological: Neuro grossly intact Psych/Mental Status: Anxious, Restless, - - Alert and oriented but dyspneic. Vital Signs Temp Pulse Resp BP Pulse Ox 97.6 F L 95 20 H 145/94 H 94 02/06/18 10:23 02/06/18 10:23 02/06/18 10:23 02/06/18 10:23 02/06/18 10:23 Oxygen Flow Rate (L/min) 3 Oxygen Delivery Method Bi-pap Weight: 216 lb 11.43 oz Body Mass Index (BMI) 39.6 Intake and Output for Last 24 Hours 02/04/18 02/05/18 02/06/18 23:59 23:59 23:59 Intake Total 1530 / 1530 350 / 350 350 / 350 Output Total 675 / 675 0 / 0 Balance 855 / 855 350 / 350 350 / 350 Microbiology Past 72 Hours 02/05/18 07:05 Gram Stain - Final Sputum, Expectorated/Coughed 02/03/18 20:04 Respiratory Panel (PCR) - Final Mucosa - Nose Human [place] POC Glucose 02/06/18 02/05/18 02/05/18 06:41 22:52 17:06 POC Glucose 215 H 193 H 171 H 02/05/18 11:40 POC Glucose 294 H Medical Necessity - Tobacco Use Smoking Status: Former smoker - 40 [id number] Tobacco Use: Cigarettes Assessment/Plan Active and Suspected Problems Acute on chronic respiratory failure with hypoxia and hypercapnia (Acute) COPD exacerbation (Acute) Possible pneumonia (Acute) RECOMMENDATIONS 1. Wean oxygen supplementation to keep saturations 88-92%. 2. Encourage incentive spirometer and chest physiotherapy 3. Increase activity as tolerated, continue PT 4. Continue aerosols and steroids, please encourage patient to be compliant 5. BiPAP PRN during day and qHS 6. Ambulatory pulse ox prior to discharge 7. Patient can follow-up with her primary journal clerk upon discharge IMPRESSIONS 1. Acute on chronic combined respiratory failure Likely secondary to human metapneumovirus. No acute process seen on plain film chest x-ray. Initial fever of 100.0?F, otherwise afebrile with no white count. Patient does have some changes in color of sputum, was coughing up darker brown. Await infectious workup. Wean oxygen supplementation to keep saturations 88-92%, to prevent paradoxical CO2 retention. Transition to oral steroids. Increase activity as tolerated. Encourage incentive spirometer/ Acapella. Patient will need a ambulatory pulse ox prior to discharge. She can follow-up with her primary journal clerk as previously scheduled. She should hold off on performing pulmonary function tests until her acute viral illness has resolved. 2. Encephalopathy Could be medication related, the patient had a recent procedure at [facility] and was given narcotics. Patient does does have evidence of chronic CO2 retention as well. This has improved. She did wear BiPAP but states she is typically intolerant to it. 3. Self-reported COPD and asthma, self-reported PARESH Patient was reportedly wheezing presentation. Her shortness of breath/combined lung disease likely exacerbated secondary to viral infection. Patient had sleep study about a year ago and is following with her primary journal clerk for this. Her pulmonary testing is not available to review at this time. She has refused noninvasive positive pressure therapy in the past, however does help her dyspnea when she wears it. Continue BiPAP PRN throughout day and qHS. 4. Type 2 diabetes/GERD/hypertension/CAD/hypothyroidism Complicates care, management, recovery, and prognosis. Continue home medications as indicated. Insulin may need to be adjusted with steroid use/ hyperglycemia. Thank you for the opportunity to participate in this patient's care, please not hesitate contact us with any further questions or concerns. This note was generated with [employer] dictation software. It may contain incorrect words, spelling, and punctuation that were not noted in checking the note before signing.
--- NOTE | 2018-02-06 12:24 | CASEMGMT ---
Patient was not discharged yesterday so LBAKE called [facility] Home coverage line and let them know possible d/c tomorrow. BLAKE also called [facility] and left her a voice mail letting her know the plan. Plan: d/c home with resumption of [employer] and [facility] longterm, PT, and OT. Charley ROLAND MSW
[2018-02-06 12:30] LABS: Bedside Glucose 234 mg/dL (70-110)
== END 2018-02-06 17:47 | disposition home health service (06) | DRG 190 ==
LOC: ED 16:08 → PCU 18:31
PROVIDERS: Admitting Provider Internal Medicine; Emergency Provider Emergency Medicine; Family Provider Family Medicine; PCP Family Medicine; Visit Provider Internal Medicine
DX: J44.0 Chronic obstructive pulmonary disease with (acute) lower respiratory infection (principal); J96.21 Acute and chronic respiratory failure with hypoxia; G93.41 Metabolic encephalopathy; J15.212 Pneumonia due to Methicillin resistant Staphylococcus aureus; J96.22 Acute and chronic respiratory failure with hypercapnia; N39.0 Urinary tract infection, site not specified; J44.1 Chronic obstructive pulmonary disease with (acute) exacerbation; B96.20 Unspecified Escherichia coli [E. coli] as the cause of diseases classified elsewhere; J20.8 Acute bronchitis due to other specified organisms; B97.81 Human metapneumovirus as the cause of diseases classified elsewhere; J20.9 Acute bronchitis, unspecified; I11.0 Hypertensive heart disease with heart failure; I50.9 Heart failure, unspecified; I48.0 Paroxysmal atrial fibrillation; E87.6 Hypokalemia; I25.10 Atherosclerotic heart disease of native coronary artery without angina pectoris; E11.9 Type 2 diabetes mellitus without complications; E03.9 Hypothyroidism, unspecified; E78.5 Hyperlipidemia, unspecified; K21.9 Gastro-esophageal reflux disease without esophagitis; G47.33 Obstructive sleep apnea (adult) (pediatric); E66.01 Morbid (severe) obesity due to excess calories; Z68.39 Body mass index [BMI] 39.0-39.9, adult; Z99.81 Dependence on supplemental oxygen; Z79.01 Long term (current) use of anticoagulants; Z79.82 Long term (current) use of aspirin; Z79.4 Long term (current) use of insulin; Z79.891 Long term (current) use of opiate analgesic; Z79.899 Other long term (current) drug therapy; Z86.711 Personal history of pulmonary embolism; Z86.718 Personal history of other venous thrombosis and embolism; Z87.01 Personal history of pneumonia (recurrent); Z87.891 Personal history of nicotine dependence; Z95.5 Presence of coronary angioplasty implant and graft
CPT/HCPCS: 36415; 36569; 36600; 51702; 71045; 71046; 71275; 80048; 80053; 80061; 80202; 81001; 82803; 82962; 83605; 83880; 84443; 84484; 85025; 85027; 85379; 85610; 87040; 87070; 87077; 87086; 87088; 87186; 87205; 87449; 87633; 87641; 87804; 93005; 94002; 94003; 94640; 94667; 94668; 97110; 97116; 97162; 97165; 97530; 97802; 97803; 99285; J7030; J7040; J7050; Q9967; A4216

== ENCOUNTER 2018-02-07 19:36 | Inpatient (IN) | payer MEDICARE, SELFPAY ==
[2018-02-07] VITALS (14 sets, daily range): BP systolic 121–162; BP diastolic 66–151; PULSE 103–160; RESP 12–36; TEMP 36.3–36.8; O2SAT 94–100; BMI 35.7; BMI 35.6
--- NOTE | 2018-02-07 19:48 | ED.RN ---
RN CALLED FOR EKG, PULLED OLD EKG'S FOR
--- NOTE | 2018-02-07 20:02 | EKG12_ITS ---
Test Reason : Blood Pressure : / mmHG Vent. Rate : 137 BPM Atrial Rate : 258 BPM P-R Int : 000 ms QRS Dur : 076 ms QT Int : 312 ms P-R-T Axes : 000 -18 155 degrees QTc Int : 471 ms Atrial fibrillation with premature ventricular or aberrantly conducted complexes ST & T wave abnormality, consider lateral ischemia Abnormal ECG Confirmed by ALVAREZ RIVER MD ([id number]), associate editor SHYANNE TERRAZAS ([id number]) on 02/09/2018 2:31:39 PM Referred By: GAURANG
--- NOTE | 2018-02-07 20:03 | RAD_ITS ---
STUDY: X-RAY CHEST REASON FOR EXAM: Female, 63 years old. Shortness of breath TECHNIQUE: A single frontal view of the chest was obtained. COMPARISON: February 04, 2018 FINDINGS: The lungs are underaerated. There are increased interstitial markings throughout the lungs. There are no focal airspace opacities. There is no demonstrated pleural abnormality. The cardiac silhouette is normal in size allowing for low volume inspiration. The mediastinum and hilar regions are unremarkable. Normal visualized pulmonary arteries. There is atherosclerotic calcification of the thoracic aorta. There are diffuse degenerative changes of the visualized spine. There are degenerative changes in both shoulders. There is no demonstrated abnormality of the visualized upper abdomen. RAD/Chest 1 View (Portable) IMPRESSION: No acute cardiopulmonary abnormalities or changes. There is stable mild diffuse fibrosis. Electronically Signed: Lizette Sutherland MD at 20:54 EDT Tel Direct: [phone], Service support ,
[2018-02-07] MEDS: Albuterol 2.5 MG/3 ML VIAL.NEB. INHALATION ×3 (20:11)
[2018-02-07] MEDS: Ipratropium/Albuterol Sulfate 3 ML AMPUL.NEB INHALATION ×2 (20:11→23:00)
[2018-02-07] MEDS: MethylPREDNISolone 125 MG/2 ML Vial IV (20:13)
[2018-02-07 20:22] LABS: Absolute Lymphocyte Count 0.81 X10^3/ul (0.83-4.51); Absolute Neutrophil Count 6.1 X10^3/uL (2.0-7.7); Basophil# 0.01 X10^3/uL; Basophil% 0.1 % (0-1); Eosinophil# 0.04 X10^3/uL; Eosinophils% 0.5 % (0-5); Hematocrit 42.5 % (37-47); Hemoglobin 13.3 g/dl (12.0-15.0); Lymphocyte # 0.81 X10^3/ul (4.0); Lymphocyte % 10.1 % (19-41); Mean Corp Hgb Conc 31.3 g/gl (32-36); Mean Corpuscular Volume 92.6 fL (81-99); Mean Platelet Vol. 9.9 fl (6.2-12.0); Monocyte# 1.01 X10^3/uL; Monocyte% 12.6 % (0-10); Neutrophil # 6.13 X10^3/uL (2.7-7.7); Neutrophil % 76.5 % (47-70); POSITIVE COUNT NO; POSITIVE DIFFERENTIAL NO; POSITIVE MORPHOLOGY NO; Platelet Count 202 K/mm3 (150-450); RBC Distribution Width CV 15.1 % (11.6-14.6); RBC Distribution Width SD 51.4 fl (35.1-43.9); Red Blood Count 4.59 M/mm3 (4.2-5.4)
[2018-02-07 20:37] LABS: Anion Gap 7 (5-15); BUN 15 mg/dL (7-18); BUN/Creat Ratio 25.7 RATIO (10-20); Chloride 98 mmol/L (98-107); Creatinine, Serum 0.58 mg/dL (0.55-1.02); EST Glomerular Filtration Rate 111 mL/min (>60); Est Glom Filt Rate - Afr Amer 134 mL/min (>60); Estimated Creatinine Clearance 89.34 ml/min; Glucose 156 mg/dL (74-106); Potassium 2.8 mmol/L (3.5-5.1); Sodium Level 142 mmol/L (136-145)
[2018-02-07 20:46] LABS: Allen Test POS; Base Excess 14 mmol/L (-2 to +2); Bicarbonate 37.1 mmol/L (22-26); Blood Gas Specimen Type ART; O2 Delivery Device Nasal Can; PO2 82 mmHG (75-100); SITE L Radial; SO2 97 % (95-99); Time Given 2035; Total Carbon Dioxide 39 mmol/L; pCO2 47.4 mmHg (35-45)
[2018-02-07 20:49] LABS: BNP,B-Type NATRIURETIC PEPTIDE 229.5 pg/mL (0-100)
[2018-02-07] MEDS: dilTIAZem 25 MG/5 ML Vial IV BOLUS (20:52)
--- NOTE | 2018-02-07 20:53 | ED.VISSUMM ---
- ER Visit Summary Date of Service: 02/07/18 Chief Complaint: Shortness of breath and fast heart rate History of Present Illness: The patient is a 63 F history of COPD and A. fib. Also history of CAD with one stent, insulin-dependent diabetes and prior DVT and PE. She is currently on the blood thinner Eliquis. Patient was just in the hospital and discharged. She denies fever. She denies any significant chest pain. She denies hemoptysis. She denies leg swelling. He is on home O2 at 3 L. Physical Examination: Older female vital signs blood pressure 142/93 afebrile and a heart rate appears to be A. fib RVR to monitor between 140-170. Mild respiratory distress. H EENT exam unremarkable. Neck nontender no JVD. Lungs extra Tory wheezing. Prolonged expiration phase. Few scattered rhonchi that clear with coughing. Heart A. fib RVR 140s+. Abdomen soft and nontender. Normal bowel sounds. No peritoneal signs. Moving all 4 extremities. Calves nontender, no edema or cords. Neurologically she is awake and alert. Test Results: Chest x-ray shows chronic changes no acute process. No pneumonia. No failure. EKG shows A. fib RVR rate 137 with PVCs. CBC shows white count 8. H&H of 13.2. Electrolytes show potassium 2.8 otherwise unremarkable with a normal gap. Troponin normal. ABG shows a pH of 7.50 with a CO2 of 47 and O2 of 82 with a O2 sat of 97%. Emergency Department Course and Treatment: Patient appears to be exacerbation of COPD and A. fib RVR. Treated with IV Solu-Medrol and aerosol treatments. Along with Cardizem IV bolus and drip. Patient continued to get worse and was placed on BiPAP. Reevaluation she was improving on the BiPAP prior to being admitted to the PCU. Treatment Plan: I have already spoken to Dr. Baker the night hospitalist and he is down to evaluate the patient for admission. Disposition: Discharge Impression: Acute exacerbation COPD A. fib RVR Noninvasive ventilatory support (BiPAP) secondary to respiratory failure Hypokalemia History of CAD with one cardiac stent History of insulin-dependent diabetes This note was generated with [employer] dictation software. It may contain incorrect words, spelling, and punctuation that were not noted in review of the chart prior to signing ED Disposition - Plan for ED Patient: Disposition: Acute Care Hospital [facility] Chief Complaint: Shortness of Breath Referrals: Bhupendra Oliveira MD [Primary Care Provider] -
--- NOTE | 2018-02-07 20:57 | ED.DCSUM_ITS ---
- ER Visit Summary Date of Service: 02/07/18 Chief Complaint: Shortness of breath and fast heart rate History of Present Illness: The patient is a 63 F history of COPD and A. fib. Also history of CAD with one stent, insulin-dependent diabetes and prior DVT and PE. She is currently on the blood thinner Eliquis. Patient was just in the hospital and discharged. She denies fever. She denies any significant chest pain. She denies hemoptysis. She denies leg swelling. He is on home O2 at 3 L. Physical Examination: Older female vital signs blood pressure 142/93 afebrile and a heart rate appears to be A. fib RVR to monitor between 140-170. Mild respiratory distress. H EENT exam unremarkable. Neck nontender no JVD. Lungs extra Tory wheezing. Prolonged expiration phase. Few scattered rhonchi that clear with coughing. Heart A. fib RVR 140s+. Abdomen soft and nontender. Normal bowel sounds. No peritoneal signs. Moving all 4 extremities. Calves nontender, no edema or cords. Neurologically she is awake and alert. Test Results: Chest x-ray shows chronic changes no acute process. No pneumonia. No failure. EKG shows A. fib RVR rate 137 with PVCs. CBC shows white count 8. H&H of 13.2. Electrolytes show potassium 2.8 otherwise unremarkable with a normal gap. Troponin normal. ABG shows a pH of 7.50 with a CO2 of 47 and O2 of 82 with a O2 sat of 97%. Emergency Department Course and Treatment: Patient appears to be exacerbation of COPD and A. fib RVR. Treated with IV Solu-Medrol and aerosol treatments. Along with Cardizem IV bolus and drip. Patient continued to get worse and was placed on BiPAP. Reevaluation she was improving on the BiPAP prior to being admitted to the PCU. Treatment Plan: I have already spoken to Dr. Baker the night hospitalist and he is down to evaluate the patient for admission. Disposition: Discharge Impression: Acute exacerbation COPD A. fib RVR Noninvasive ventilatory support (BiPAP) secondary to respiratory failure Hypokalemia History of CAD with one cardiac stent History of insulin-dependent diabetes This note was generated with [email or web address] dictation software. It may contain incorrect words, spelling, and punctuation that were not noted in review of the chart prior to signing ED Disposition - Plan for ED Patient: Disposition: Acute Care Hospital [facility] Chief Complaint: Shortness of Breath Referrals: Bhupendra Oliveira MD [Primary Care Provider] -
--- NOTE | 2018-02-07 22:04 | ED.RN ---
DAUGHTER MILY NOTIFIED THAT PT WAS ADMITTED TO PCU PER PT REQUEST
--- NOTE | 2018-02-07 22:22 | NURSING ---
Patient just arrived to floor - verified cardizem at 5mg/hr at this time with TOM hilton on arrival
--- NOTE | 2018-02-07 22:35 | NURSING ---
Increased cardizem to 10mg/hr with TOM Russell at bedside at this time.
--- NOTE | 2018-02-07 22:40 | NURSING ---
MD Baker came into room to see patient due condition. Ordered at this time ABG stat and Labetalol 10mg IVP at this time. Input order per MD Baker verbal readback
[2018-02-07 22:56] LABS: Allen Test POS; Base Excess 13 mmol/L (-2 to +2); Bicarbonate 36.6 mmol/L (22-26); Blood Gas Specimen Type ART; EPAP 6; FI02 35; IPAP 12; PO2 99 mmHG (75-100); RR 12; SITE L Radial; SO2 98 % (95-99); Time Given 2245; Total Carbon Dioxide 38 mmol/L; pCO2 48.5 mmHg (35-45); pH 7.49 (7.35-7.45)
--- NOTE | 2018-02-07 22:56 | NURSING ---
MD Baker came into room to see patient due condition. Ordered at this time ABG stat and Labetalol 10mg IVP at this time. Input order per MD Baker verbal readback.
[2018-02-07] MEDS: 0.9% Normal Saline 1,000 ML 75 ML IV (23:07)
[2018-02-07 23:11] LABS: Bedside Glucose 254 mg/dL (70-110)
[2018-02-07 23:23] LABS: D-Dimer Quantitative (DVT/PE) 0.63 FEU/ug/m (0.27-0.49)
--- NOTE | 2018-02-07 23:30 | HP.PCM_ITS ---
Problem List (1) Atrial fibrillation with RVR Status: Acute (2) COPD exacerbation Status: Acute (3) Coronary arteriosclerosis Status: Chronic Comment: cath 05/2015 mild-moderate disease medical therapy recommended (4) GERD (gastroesophageal reflux disease) Status: Chronic (5) Hyperlipemia Status: Chronic (6) Hypertension Status: Chronic (7) Hypothyroidism Status: Chronic Qualifiers: (8) PARESH (obstructive sleep apnea) Status: Chronic History of Present Illness Date of Admission: 02/07/18 Chief Complaint: COPD exacerbation The patient is a 63 year old female w/ h/o COPD, afib on eliquis, CAD s/p stent , insulin-dependent diabetes and prior DVT and PE readmitted for acute hypoxic and hypercapnic respiratory failure. She was discharged 1 day ago and when she was home, she became more SOB. SOB worsened over the next day. She had a dry cough with her SOB. Nothing appeared to make her SOB better or worse despite she taking her meds. She lives by herself. She went back to the ED for further workup. Past Medical History Past Medical History (Chronic Problems): Chronic Problems Diabetes mellitus type 2 in obese (Chronic) Coronary arteriosclerosis (Chronic) cath 05/2015 mild-moderate disease medical therapy recommended Hypothyroidism (Chronic) Hyperlipemia (Chronic) GERD (gastroesophageal reflux disease) (Chronic) Hypertension (Chronic) COPD (chronic obstructive pulmonary disease) (Chronic) Chronic respiratory insufficiency (Chronic) On home oxygen at night S/P PTCA (percutaneous transluminal coronary angioplasty) (Chronic) PARESH (obstructive sleep apnea) (Chronic) Allergies ciprofloxacin [From Cipro] Allergy (Verified 02/07/18 19:42) Hives latex Allergy (Verified 02/07/18 19:42) matos me niacin [From Niaspan Extended-Release] Allergy (Verified 02/07/18 19:42) Hives ondansetron [From Zofran] Allergy (Verified 02/07/18 19:42) Unknown Xanthines Allergy (Verified 02/07/18 19:42) Unknown Penicillins Adverse Reaction (Mild, Verified 02/07/18 19:42) Itching/redness orphenadrine citrate [From Norgesic] Adverse Reaction (Verified 02/07/18 19:42) groggy medical tape Adverse Reaction (Uncoded 02/07/18 19:42) blisters Home Medications: Ambulatory Orders Medication Instructions Recorded Albuterol Inhaler [Ventolin Hfa] 2 puff INHALATION Q4H PRN PRN 02/03/18 Apixaban [Eliquis] 2.5 mg PO BID 02/03/18 Ascorbic Acid [Vitamin C] 500 mg PO DAILY@0800 02/03/18 Aspirin [Aspirin, Baby] 81 mg PO DAILY@0800 02/03/18 Atorvastatin Calcium [Lipitor] 40 mg PO QHS 02/03/18 Capsaicin 1 dose TP 4X/DAY 02/03/18 Diltiazem HCl [Cartia Xt] 180 mg PO DAILY 02/03/18 Docusate Sodium [Stool Softener] 100 mg PO DAILY PRN PRN 02/03/18 Duloxetine Hcl [Cymbalta] 60 mg PO DAILY 02/03/18 Estradiol 1 dose VG MOWEFR 02/03/18 Ferrous Gluconate 325 mg PO DAILY@0800 02/03/18 Fluticasone 0.05% [Flonase Nasal 2 spray NASAL DAILY 02/03/18 [place]] Furosemide [Lasix] 40 mg PO BIDLX 02/03/18 Insulin Glargine,Hum.rec.anlog 56 unit SQ BID 02/03/18 [Lantus] Insulin Lispro [Humalog KwikPen] 22 unit SQ LUNCH 02/03/18 Insulin Lispro [Humalog KwikPen] 24 unit SQ DINNER 02/03/18 Insulin Lispro [Humalog] 14 unit SQ BREAKFAST 02/03/18 Isosorbide Mononitrate [Imdur] 90 mg PO DAILY 02/03/18 Levothyroxine [Synthroid] 100 mcg PO DAILY 02/03/18 Metformin HCl [Metformin HCl ER] 1,000 mg PO BID 02/03/18 Oxycodone HCl [Roxicodone] 5 - 10 mg PO Q4H PRN 02/03/18 Pantoprazole Sodium [Protonix] 40 mg PO BID 02/03/18 Pregabalin [Lyrica] 100 mg PO TID 02/03/18 Sennosides [Claudia-Ramila] 8.6 mg PO BID 02/03/18 Sucralfate [Carafate] 1 gm PO 4X/DAY 02/03/18 proMETHazine tablet [Phenergan 25 mg PO Q6H PRN PRN 02/03/18 tablet] Glucerna Shake 120 ml PO 4X/DAY #100 liquid 02/05/18 Guaifenesin [Mucinex] 1,200 mg PO BID #20 tab 02/05/18 Ipratropium/Albuterol Sulfate 3 ml INHALATION Q4H.RT #100 02/05/18 [Duoneb] ampul.neb Metoprolol Tartrate [Lopressor 100 mg PO BID #60 tab 02/05/18 (beta sudhakar)] Prednisone 10 mg PO UD #30 tab 02/05/18 Surgical History: angioplasty, cholecystectomy, herniorrhaphy, hysterectomy, - - tubal ligation. 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 Smoking Status: Former smoker - *Family History Maternal History Items: No pertinent history Paternal History Items: Heart Disease, Stroke - age 62 Offspring History Items: No pertinent history - 5 children, 32 grand children and great grandchildren Review of Systems Constitutional: Denies: Chills, Fever, Weight Change HEENT: Denies: Head Aches, Sinus Congestion, Sinus Drainage Cardiovascular: Denies: Chest Pain, Palpitations Respiratory: Reports: Cough, Shortness of breath at rest, Sputum production, Wheezing Gastrointestinal: Denies: Abdominal Pain, Nausea, Vomiting Genitourinary: Denies: Dysuria Musculoskeletal: Denies: Joint Pain, Joint Tenderness Skin: Denies: Rash, Wounds Neurological: Denies: Numbness, Tingling, Focal weakness Psychiatric: Denies: Anxiety, Depression, Homicidal Ideations, Suicidal Ideations Hematologic/ Lymphatic: Denies: Easy Bruising, Easy Bleeding VTE Information - Inpt Only VTE Present on Admission: No VTE Mechan Device Prophylaxis: SCD's VTE Pharm Prophylaxis ordered?: Yes Patient Problems: Active and Suspected Problems Atrial fibrillation with RVR (Acute) - Physical Exam General: Cooperative, Confused, Disoriented HEENT: Atraumatic, PERRLA, EOMI, Normocephalic Neck: Supple, No JVD, Negative Carotid Bruits Lungs: Diminished, Rales, Wheezes Cardiovascular: Regular rate, No murmurs Abdomen: Bowel Sounds Present, Soft, Non Tender Extremities: No edema, Capillary Refill Less than 3 Seconds Skin: No rashes, No breakdown Musculoskeletal: No Tenderness to Palpation of Joints or Extremities Neurological: Cranial nerves II-XII grossly intact Psych/Mental Status: Normal Affect, Appropriate Vital Signs Temp Pulse Resp BP Pulse Ox 97.4 F L 103 H 24 H 151/91 H 94 02/07/18 22:32 02/07/18 23:20 02/07/18 23:20 02/07/18 23:20 02/07/18 23:20 Oxygen Delivery Method Bi-pap Weight: 97 kg Body Mass Index (BMI) 35.6 Microbiology Past 72 Hours 02/07/18 22:58 Influenza Types A,B Direct FA (JEZ) - Final Mucosa - Nose Laboratory Tests Past 24 Hrs 02/07/18 22:52 Specimen Type ART Sample Site L Radial pH 7.49 H Bicarbonate Actual 36.6 H POC Total CO2 38 Base Excess 13 H O2 Saturation 98 O2 % 35 ABG pCO2 48.5 H ABG pO2 99 [place] Test POS Respiration Rate 12 O2 Delivery Device Bi / C PAP EPAP 6 IPAP 12 Blood Gas Notified Whom HOSP Blood Gas Notified Time 2245 POC Glucose 02/07/18 22:53 POC Glucose 254 H Assessment/Plan Active and Suspected Problems Atrial fibrillation with RVR (Acute) 63 year old female w/ h/o COPD, afib on eliquis, CAD s/p stent, insulin- dependent diabetes and prior DVT and PE readmitted for acute hypoxic and hypercapnic respiratory failure. 1) Acute hypoxic and hypercapnic respiratory failure: Most likely secondary to COPD exacerbation. Will restart bronchodilator, steroid and antibiotic. Cultures pending. 2) Afib with RVR: H/o afib noted. C/w eliquis. Will start cardizem gtt. Labetalol IV PRN. Serial trops. Will also get ECHO. 3) Elevated d-dimer: Given worsening SOB, concerning for progressive worsening PE. Will get CTA. Monitor. 4) DMII: Resume home meds.
[2018-02-08] VITALS (46 sets, daily range): BP systolic 90–177; BP diastolic 38–103; PULSE 54–111; RESP 12–25; TEMP 36.4–37.1; O2SAT 93–100
[2018-02-08] MEDS: Ipratropium/Albuterol Sulfate 3 ML AMPUL.NEB INHALATION ×6 (02:37→23:09)
--- NOTE | 2018-02-08 02:52 | NURSING ---
0015 Multiple attempts (4) to start 2nd IV line for cat scan with Stacia RN communications equipment supervisor, unable to get.
[2018-02-08 03:26] LABS: Bedside Glucose 335 mg/dL (70-110)
[2018-02-08] MEDS: Insulin Lispro 100 UNIT/ML INSULN.PEN SC ×5 (04:42→21:42)
[2018-02-08] MEDS: 0.9% NaCl Peripheral Flush Adult/Peds IV ×2 (05:23→13:03)
--- NOTE | 2018-02-08 06:20 | NURSING ---
Called service trainer answering service Joyce for mid line placement today.
--- NOTE | 2018-02-08 06:30 | NURSING ---
PATIENT IS MORE AWAKE THIS AM, STILL DROWSY, BUT EASILY AROUSABLE.
[2018-02-08 06:56] LABS: Bedside Glucose 346 mg/dL (70-110)
[2018-02-08 08:39] LABS: Hematocrit 41.6 % (37-47); Hemoglobin 13.1 g/dl (12.0-15.0); Mean Corp Hgb Conc 31.5 g/gl (32-36); Mean Corpuscular Hgb 29.4 pg (27.0-32.0); Mean Corpuscular Volume 93.5 fL (81-99); Mean Platelet Vol. 10.3 fl (6.2-12.0); Platelet Count 198 K/mm3 (150-450); RBC Distribution Width SD 51.5 fl (35.1-43.9); Red Blood Count 4.45 M/mm3 (4.2-5.4); White Blood Count 6.4 K/mm3 (4.4-11.0)
[2018-02-08 08:40] LABS: Scan Indicated on CBC? Y/N NO
[2018-02-08 08:46] LABS: International Normalized Ratio 1.1; Prothrombin Time (Protime)PT. 14.5 SECONDS (11.7-14.9)
[2018-02-08] MEDS: Fluticasone 0.05% 1 SPRAY NASAL.SRY 2 SPRAY NASAL (09:07)
[2018-02-08] MEDS: Capsaicin 0.025% 1 APPLIC Tube TOPICAL ×2 (09:08→13:02)
[2018-02-08] MEDS: Insulin Lispro 100 UNIT/ML INSULN.PEN 14 UNIT SC (09:11)
[2018-02-08] MEDS: Aspirin 81 MG TAB.CHEW PO (09:13)
[2018-02-08] MEDS: Ferrous Gluconate 325 MG Tablet PO (09:13)
[2018-02-08] MEDS: Pantoprazole Sodium 40 MG Tablet PO ×2 (09:13→21:40)
[2018-02-08] MEDS: Senna Tablet 1 TABLET PO ×2 (09:13→21:40)
[2018-02-08] MEDS: Ascorbic Acid 500 MG Tablet PO (09:13)
[2018-02-08] MEDS: APIXABAN 2.5 MG TABLET PO (09:13)
[2018-02-08] MEDS: guaiFENesin 1,200 MG Tablet 1200 MG PO ×2 (09:13→21:40)
[2018-02-08] MEDS: Metoprolol Tartrate 100 MG Tablet PO ×2 (09:13→21:39)
[2018-02-08] MEDS: DULoxetine Hcl 60 MG Capsule PO (09:13)
[2018-02-08] MEDS: Furosemide 40 MG Tablet PO ×2 (09:13→16:59)
[2018-02-08] MEDS: Isosorbide Mononitrate 30 MG Tablet 90 MG PO (09:13)
[2018-02-08 09:43] LABS: BUN 16 mg/dL (7-18); Creatinine, Serum 0.66 mg/dL (0.55-1.02); Glucose 339 mg/dL (74-106)
[2018-02-08 09:44] LABS: Anion Gap 10 (5-15); BUN/Creat Ratio 24.2 RATIO (10-20); Calcium,Total 8.7 mg/dL (8.5-10.1); Chloride 99 mmol/L (98-107); Cholesterol 142 mg/dL (200); EST Glomerular Filtration Rate 96 mL/min (>60); Est Glom Filt Rate - Afr Amer 116 mL/min (>60); Estimated Creatinine Clearance 75.34 ml/min; High Density Lipoprotein 59 mg/dL; Potassium 3.4 mmol/L (3.5-5.1); Sodium Level 140 mmol/L (136-145); Triglycerides 206 mg/dL; Very Low Density Lipoprotein 41 mg/dL (5-40)
--- NOTE | 2018-02-08 11:25 | PN_ITS ---
Patient Problems: Active and Suspected Problems Atrial fibrillation with RVR (Acute) Subjective: She is not febrile, HR controlled. SOB better; was on Bipap last night Readmitted on yesterday soon after discharge Sputum is positive of MRSA. Previous respiratory panel was positive of human Horta virus. At that time urine culture on 515 shows E. coli pansensitive. Vitals/I&O's: Vital Signs Temp Pulse Resp BP Pulse Ox 97.9 F 71 20 H 112/55 L 98 02/08/18 10:00 02/08/18 10:00 02/08/18 10:00 02/08/18 10:00 02/08/18 10:00 Oxygen Flow Rate (L/min) 3 Oxygen Delivery Method Nasal Cannula Weight: 213 lb 13.574 oz Body Mass Index (BMI) 35.6 Intake and Output for Last 24 Hours 02/06/18 02/07/18 02/08/18 23:59 23:59 23:59 Intake Total 84 / 84 566 / 566 Output Total 100 / 100 Balance 84 / 84 466 / 466 General: Alert, Cooperative, Disoriented, Lethargic HEENT: Atraumatic, PERRLA, EOMI, Normocephalic Oral: Dry Mucosa Neck: Supple, No JVD, Negative Carotid Bruits Lungs: Diminished, Rhonchi, Short of Breath - On minimal exertion Cardiovascular: Regular rate, Regular Rhythm, Normal S1, Normal S2, No murmurs Abdomen: Bowel Sounds Present, Soft, Non Tender, Non-Distended Extremities: Capillary Refill Less than 3 Seconds, Edema Skin: No rashes, No breakdown Musculoskeletal: No Tenderness to Palpation of Joints or Extremities Neurological: Cranial nerves II-XII grossly intact Psych/Mental Status: Normal Affect, Appropriate Microbiology Past 72 Hours 02/07/18 22:58 Mucosa - Nose Influenza Types A,B Direct FA (JEZ) - Final Laboratory Results 02/07/18 22:52: Specimen Type ART, Sample Site L Radial, pH 7.49 H, Bicarbonate Actual 36.6 H, POC Total CO2 38, Base Excess 13 H, O2 Saturation 98, O2 % 35, ABG pCO2 48.5 H, ABG pO2 99, Chapin Test POS, Respiration Rate 12, O2 Delivery Device Bi / C PAP, EPAP 6, IPAP 12, Blood Gas Notified Whom HOSP , Blood Gas Notified Time 224402/07/18 22:53: POC Glucose 254 H 02/07/18 23:57: Troponin I < 0.020 02/08/18 01:50: Troponin I < 0.015 02/08/18 03:18: POC Glucose 335 H 02/08/18 06:46: POC Glucose 346 H 02/08/18 08:25: Sodium 140, Potassium 3.4 L, Chloride 99, Carbon Dioxide 31.0, Anion Gap 10, BUN 16, Creatinine 0.66, Estim Creat Clear Calc 75.34, Est GFR ( MDRD) Af Amer 116, Est GFR (MDRD) Non-Af 96, BUN/Creatinine Ratio 24.2 H, Glucose 339 H, Calcium 8.7, Triglycerides 206 H, Cholesterol 142, LDL Cholesterol 42, VLDL Cholesterol 41 H, HDL Cholesterol 59, TSH 0.20 L 02/08/18 08:25: WBC 6.4, RBC 4.45, Hgb 13.1, Hct 41.6, MCV 93.5, MCH 29.4, MCHC 31.5 L, RDW 15.0 H, RDW Differential 51.5 H, Plt Count 198, MPV 10.3 02/08/18 08:25: Troponin I < 0.015 02/08/18 08:25: PT 14.5, INR 1.1 Current Medications Albuterol Sulfate (Ventolin Aerosols) 2.5 mg INHALATION Q2H PRN PRN PRN Reason: SHORTNESS OF BREATH Albuterol/Ipratropium (Duoneb) 3 ml INHALATION Q4H.RT [facility] Last Admin: 02/08/18 11:10 Dose: 3 ml Apixaban (Eliquis) 2.5 mg PO BID [facility] Last Admin: 02/08/18 09:13 Dose: 2.5 mg Ascorbic Acid (Vitamin C) 500 mg PO DAILY@0800 [facility] Last Admin: 02/08/18 09:13 Dose: 500 mg Aspirin (Aspirin, Baby) 81 mg PO DAILY@0800 [facility] Last Admin: 02/08/18 09:13 Dose: 81 mg Atorvastatin Calcium (Lipitor) 40 mg PO QHS [facility] Last Admin: 02/07/18 23:01 Dose: Not Given Capsaicin (Zostrix) 1 applic TOPICAL 4X/DAY [facility] Last Admin: 02/08/18 09:08 Dose: 1 applicatio Docusate Sodium (Colace) 100 mg PO DAILY PRN PRN PRN Reason: Constipation Duloxetine HCl (Cymbalta) 60 mg PO DAILY [facility] Last Admin: 02/08/18 09:13 Dose: 60 mg Ferrous Gluconate (Ferrous Gluconate) 325 mg PO DAILY@0800 [facility] Last Admin: 02/08/18 09:13 Dose: 325 mg Fluticasone Propionate (Flonase Nasal [place]) 2 spray NASAL DAILY [facility] Last Admin: 02/08/18 09:07 Dose: 2 spray Furosemide (Lasix) 40 mg PO BIDLX [facility] Last Admin: 02/08/18 09:13 Dose: 40 mg Guaifenesin (Mucinex) 1,200 mg PO BID [facility] Last Admin: 02/08/18 09:13 Dose: 1,200 mg Sodium Chloride () 1,000 mls @ 75 mls/hr IV .[id number] [facility] Last Admin: 02/07/18 23:07 Dose: 75 mls/hr Diltiazem HCl 125 mg/ Dextrose 125 mls @ 5 mls/hr CONT INF .Q25H [facility] PRN Reason: 5 MG/HR Last Admin: 02/08/18 06:53 Dose: 5 mls/hr Insulin Glargine (Lantus (Bkc)) 56 units SC BID [facility] Last Admin: 02/08/18 09:11 Dose: 56 unit Insulin Human Lispro (Humalog Kwikpen (Bkc)) 22 unit SC LUNCH [facility] Insulin Human Lispro (Humalog Kwikpen (Bkc)) 24 unit SC DINNER [facility] Insulin Human Lispro (Humalog Kwikpen (Bkc)) 14 unit SC BREAKFAST [facility] Last Admin: 02/08/18 09:11 Dose: 14 u Insulin Human Lispro (Humalog Kwikpen (Bkc)) 0 unit SC ACHS [facility] PRN Reason: Protocol Last Admin: 02/08/18 07:47 Dose: 3 units Isosorbide Mononitrate (Imdur) 90 mg PO DAILY [facility] Last Admin: 02/08/18 09:13 Dose: 90 mg Levothyroxine Sodium (Synthroid) 100 mcg PO DAILY@0600 [facility] Last Admin: 02/08/18 04:45 Dose: Not Given Magnesium Hydroxide (Milk Of Magnesia) 30 ml PO DAILY PRN PRN Reason: Constipation Metformin HCl (Glucophage Xr) 1,000 mg PO BIDCM [facility] Last Admin: 02/08/18 06:23 Dose: Not Given Methylprednisolone (Solu-Medrol) 40 mg IV Q8 [facility] Last Admin: 02/08/18 05:23 Dose: 40 mg Metoprolol Tartrate (Lopressor (Beta Kaye)) 100 mg PO BID [facility] Last Admin: 02/08/18 09:13 Dose: 100 mg Nutritional Formula (Lactose Free) (Ensure Clear) 120 ml PO 4X/DAY [facility] Last Admin: 02/08/18 09:14 Dose: Not Given Pantoprazole Sodium (Protonix) 40 mg PO BID [facility] Last Admin: 02/08/18 09:13 Dose: 40 mg Pregabalin (Lyrica) 100 mg PO TID [facility] Last Admin: 02/08/18 04:45 Dose: Not Given Promethazine HCl (Phenergan Tablet) 25 mg PO Q6H PRN PRN PRN Reason: NAUSEA Senna (Senokot) 1 tablet PO BID [facility] Last Admin: 02/08/18 09:13 Dose: 1 tablet Sodium Chloride () 5 - 30 ml IV UD PRN PRN Reason: SALINE FLUSH Last Admin: 02/08/18 05:23 Dose: 10 ml Sucralfate (Carafate) 1 gm PO 1HR_ACHS [facility] Last Admin: 02/08/18 06:30 Dose: Not Given Medical Necessity - Tobacco Use Smoking Status: Former smoker Assessment/Plan Active and Suspected Problems Atrial fibrillation with RVR (Acute) 63 year old female w/ h/o COPD, afib on eliquis, CAD s/p stent, insulin- dependent diabetes and prior DVT and PE readmitted for acute hypoxic and hypercapnic respiratory failure. Patient was last admitted on 02/03 COPD exacerbation with acute on chronic combined hypoxic and hypercarbic respiratory failure and discharged on 02/07/2019 1) Acute hypoxic and hypercapnic respiratory failure: Most likely secondary to COPD exacerbation. Will restart bronchodilator, steroid and antibiotic. Sputum culture is growing MRSA, 3+. She had previous MRSA and sputum culture in September 2017. Discussed with the pharmacist. Started on IV vancomycin. ID consult for complex recurrent MRSA sputum infection but chest x-rays without major consolidation/infiltrate. Chest x-ray is more consistent with chronic findings including interstitial markings throughout the lungs but no focal airspace opacities. 2. E. coli acute on recurrent UTI: Patient had 2 doses of IV aztreonam, 2 dosages of Rocephin, 1 dose of Levaquin. Urine from more than 100,000. February 03 shows E. coli previous urine culture on 04/2017 shows Enterobacter heterogeneous. Repeat UA with urine culture ordered. One dose of IV Rocephin ordered after urine collection. 3) Afib with RVR with history of coronary artery disease single-vessel disease: H/o afib noted. C/w eliquis. Will start cardizem gtt. Labetalol IV PRN. Gradually taper down the Cardizem drip, and transition to oral Cardizem. Serial trops. Will also get ECHO. Patient had cardiac cath in December [address] Marvin. Found to have single- vessel coronary artery disease of left circumflex, occluded very small left circumflex with right to left collateral. LV gram EF 75%. Mid LAD 40%, distal LAD 60% mid circumflex occluded with [id number] collateral. Mid RCA less than 30%, right PDA less than 30%. At that time patient was started on Eliquis in December 2017 and DC Plavix. Follows Dr. Strickland 3) Elevated d-dimer: Given worsening SOB, concerning for progressive worsening PE. CT was ordered. Monitor. 4) DMII: Resume home meds. Code Visit Inpatient E&M: 34127 Subs Hosp L3
[2018-02-08] MEDS: Sucralfate 1 GM Tablet PO ×3 (11:44→21:40)
[2018-02-08] MEDS: Insulin Lispro 100 UNIT/ML INSULN.PEN 22 UNIT SC (11:45)
[2018-02-08 11:50] LABS: Bedside Glucose 320 mg/dL (70-110)
[2018-02-08] MEDS: 0.9% Normal Saline 1,000 ML 75 ML IV ×2 (12:30→23:41)
[2018-02-08] MEDS: Glucerna Shake 120 ML LIQUID PO ×2 (13:02→16:59)
[2018-02-08] MEDS: Pregabalin 50 MG Capsule 100 MG PO ×2 (13:03→21:40)
--- NOTE | 2018-02-08 16:09 | PCM.RX.CS ---
Consult Pharmacy has been consulted to manage selected antiobiotic: Vancomycin Type of Consult: New start Suspected Infection: Pneumonia Prior Doses of Antibiotics Received/Current Regimen: NONE Labs: Sodium 140 mmol/L (136-145) 02/08/18 08:25 Potassium 3.4 mmol/L (3.5-5.1) L 02/08/18 08:25 Chloride 99 mmol/L (98-107) 02/08/18 08:25 Carbon Dioxide 31.0 mmol/L (21.0-32.0) 02/08/18 08:25 Anion Gap 10 (5-15) 02/08/18 08:25 BUN 16 mg/dL (7-18) 02/08/18 08:25 Creatinine 0.66 mg/dL (0.55-1.02) 02/08/18 08:25 Est GFR (MDRD) Af Amer 116 mL/min (>60) 02/08/18 08:25 Est GFR (MDRD) Non-Af 96 mL/min (>60) 02/08/18 08:25 BUN/Creatinine Ratio 24.2 RATIO (10-20) H 02/08/18 08:25 Glucose 339 mg/dL (74-106) H 02/08/18 08:25 Microbiology: Microbiology 02/07/18 22:58 Mucosa - Nose Influenza Types A,B Direct FA (JEZ) - Final Weight used for dosin kg Estimated Creatinine Clearance: 75 ML/MIN Goal Trough: 15-20 mcg/mL Pharmacy Plan for Drug Dosing: Pharmacy to manage vancomycin for the treatment of MRSA pneumonia per hospitalist. The patient was previously admitted to the hospital, and her cultures from 02/03 showing MRSA in the sputum. Will target a trough of 15-20 given indication and culture results. Will draw trough with 4th dose and monitor daily. Per hospitalist note, ID consulted on case. PLAN/RECOMMENDATIONS 1. Vancomycin 1250mg IV Q12hrs 2. Trough 02/10/18 @0430 (Prior to 4th dose) 3. Pharmacy will continue to monitor daily and make changes as appropriate
--- NOTE | 2018-02-08 16:38 | RAD_ITS ---
STUDY: X-RAY CHEST REASON FOR EXAM: Female, 63 years old. PICC line placement TECHNIQUE: AP portable COMPARISON: February 07, 2018 FINDINGS: There is mild diffuse interstitial thickening but no focal infiltration.. There is no demonstrated pleural abnormality. Normal size heart. Normal mediastinum and tracie. Normal visualized pulmonary arteries. Normal visualized aortic arch and descending thoracic aorta. Dorsal spine demonstrates spondylosis.. Normal visualized ribs, clavicles, and shoulders. PICC line has been placed on the right with tip in distal superior vena cava There is no demonstrated abnormality of the visualized soft tissue structures of the upper abdomen. RAD/Chest 1 View (Portable) IMPRESSION: PICC line placement with tip in distal superior vena cava Electronically Signed: John Chavez MD at 18:15 EDT , Service support ,
[2018-02-08 16:50] LABS: Bedside Glucose 191 mg/dL (70-110)
[2018-02-08] MEDS: Insulin Lispro 100 UNIT/ML INSULN.PEN 24 UNIT SC (16:56)
[2018-02-08 21:32] LABS: Bacteria 0 SEEN /hpf (None Seen)
[2018-02-08 21:34] LABS: Color, Urine Yellow (Yellow); Glucose, Dipstick 100 mg/dl (Normal); Ketone-Dipstick 15 mg/dl (Negative); Leukocyte Esterase-Dipstick Negative /ul (Negative); Nitrite-Dipstick Negative (Negative); Occult Blood-Urine Negative /ul (Negative); Protein-Dipstick 15 mg/dl (Negative); Specific Gravity, Urine 1.015 (1.002-1.030); Urine Bilirubin Dipstick Negative (Negative); Urine Clarity Clear (Clear); Urine Urobilinogen 1 mg/dl (Normal); Urine pH 6.5 (5.0 - 8.0)
[2018-02-08] MEDS: Atorvastatin Calcium 40 MG Tablet PO (21:40)
[2018-02-08] MEDS: APIXABAN 5 MG TABLET PO (21:44)
[2018-02-08 21:45] LABS: Hyaline Cast 5-10 SEEN /lpf (0-5)
[2018-02-08 21:46] LABS: Fine Granular Cast- Urine 0-5 SEEN /lpf (0-5)
[2018-02-08 21:47] LABS: Mucous, Urine RARE /hpf (<or=2+); Squamous Epithelial Cells - UA 0-5 SEEN /hpf (5-10)
[2018-02-08 21:48] LABS: Red Blood Cells-Urine 0-5 SEEN /hpf (0-5); White Blood Cells 0-5 SEEN /hpf (0-5)
[2018-02-08 22:20] LABS: Bedside Glucose 362 mg/dL (70-110)
--- NOTE | 2018-02-08 23:29 | CT_ITS ---
STUDY: CTA CHEST REASON FOR EXAM: Female, 63 years old. Shortness of breath, elevated d-dimer RADIATION DOSAGE (If Supplied By Facility): CTDIvol = ( 16.73 ) mGy, DLP = ( 690.72 ) mGycm TECHNIQUE: The examination was performed with the intravenous administration of 100 ml of Isovue 370 contrast material. Post-processing of the angiographic images was performed, with multiplanar reformation and 3D reconstruction. Individualized dose optimization techniques were used for this CT. COMPARISON: Chest radiograph from the same day; chest CT without contrast dated March 29, 2016 FINDINGS: Normal enhancement of the main pulmonary artery and right and left pulmonary arteries without filling defects. Normal enhancement of the bilateral peripheral pulmonary arteries without evidence of filling defects. There are minimal vascular calcifications in the thoracic aorta. There is no demonstrated aortic dissection. The heart is normal in size. There are calcifications of the coronary arteries. There are prominent lymph nodes throughout the mediastinum. Lymph nodes in the right paratracheal space have decreased in size from about 3.2 cm to 2.4 cm. There are small lymph nodes in both tracie. There are calcified lymph nodes in the left hilum. The airways are unremarkable. There is minimal biapical scarring. There are reticulonodular changes in both lungs, right greater than left. There is a 1.1 cm opacity in the periphery of the right lower lobe on image 67. There is no demonstrated pleural abnormality. The soft tissues are unremarkable. There are mild degenerative changes in the visualized spine. There are numerous calcified granulomas in the spleen. CT/CTA Chest W/WO Contrast IMPRESSION: There is no evidence of pulmonary embolism, aortic aneurysm or aortic dissection. There are mild chronic changes in both lungs, right greater than left. There is no focal consolidation. There is no pleural effusion. Prominent lymph nodes in the mediastinum are likely reactive. The lymph nodes have decreased in size compared to the prior CT. There is a 1.1 cm opacity in the periphery of the right lower lobe. A follow-up CT of the chest is recommended in three months. Electronically Signed: Lizette Sutherland MD at 23:31 EDT Tel Direct: [phone], Service support ,
[2018-02-08] MEDS: dilTIAZem CD 180 MG Capsule PO (23:40)
[2018-02-09] VITALS (17 sets, daily range): BP systolic 122–149; BP diastolic 65–90; PULSE 62–103; RESP 12–22; TEMP 36.4–36.6; O2SAT 93–100
[2018-02-09] MEDS: Sucralfate 1 GM Tablet PO ×4 (06:21→22:26)
[2018-02-09] MEDS: 0.9% NaCl Peripheral Flush Adult/Peds IV ×2 (06:22→22:27)
[2018-02-09] MEDS: Pregabalin 50 MG Capsule 100 MG PO ×3 (06:22→22:27)
[2018-02-09] MEDS: Levothyroxine 100 MCG Tablet PO (06:22)
[2018-02-09 07:01] LABS: Bedside Glucose 236 mg/dL (70-110)
--- NOTE | 2018-02-09 08:42 | CASEMGMT ---
SW called [facility] and let Brenna on the coverage line know that patient is back in the hospital. Patient was d/c Friday02-06-18 with [facility] assisted, PT, and OT. Charley ROLAND MSW
[2018-02-09] MEDS: Glucerna Shake 120 ML LIQUID PO ×3 (08:46→17:17)
[2018-02-09] MEDS: Senna Tablet 1 TABLET PO ×2 (08:47→22:26)
[2018-02-09] MEDS: Ferrous Gluconate 325 MG Tablet PO (08:47)
[2018-02-09] MEDS: DULoxetine Hcl 60 MG Capsule PO (08:47)
[2018-02-09] MEDS: Furosemide 40 MG Tablet PO ×2 (08:47→17:20)
[2018-02-09] MEDS: Ascorbic Acid 500 MG Tablet PO ×2 (08:47→08:48)
[2018-02-09] MEDS: Pantoprazole Sodium 40 MG Tablet PO ×2 (08:47→22:26)
[2018-02-09] MEDS: Isosorbide Mononitrate 30 MG Tablet 90 MG PO (08:47)
[2018-02-09] MEDS: APIXABAN 5 MG TABLET PO ×2 (08:48→22:27)
[2018-02-09] MEDS: Aspirin 81 MG TAB.CHEW PO (08:48)
[2018-02-09] MEDS: dilTIAZem CD 180 MG Capsule PO (08:48)
[2018-02-09] MEDS: guaiFENesin 1,200 MG Tablet 1200 MG PO ×2 (08:48→22:27)
[2018-02-09] MEDS: Metoprolol Tartrate 100 MG Tablet PO ×2 (08:49→22:26)
[2018-02-09] MEDS: Insulin Lispro 100 UNIT/ML INSULN.PEN 14 UNIT SC (08:55)
[2018-02-09] MEDS: Insulin Lispro 100 UNIT/ML INSULN.PEN SC ×4 (08:57→22:42)
--- NOTE | 2018-02-09 09:51 | PCM.PN.HOSP ---
Patient Problems: Active and Suspected Problems Atrial fibrillation with RVR (Acute) Subjective: Patient is a 63-year-old lady admitted with progressive shortness of breath. An acute hypoxic and hypercapnic respiratory failure made, admitted to a monitored bed for subsequent management Objective: GENERAL: Cooperative HEENT: Dry oral mucosa NECK; supple, normal thyroid, CHEST: Diminished to auscultation bilaterally, HEART: Regular S1 S2, tachycardic ABDOMEN: soft, non-tender, normoactive bowel sounds, RECTAL: deferred MUSCULOSKELETAL: No muscle wasting EXTREMITIES: No edema, no clubbing, no cyanosis. RECORDS MANAGEMENT ENGINEER: Awake, no lateralizing signs Vitals/I&O's: Vital Signs Temp Pulse Resp BP Pulse Ox 97.8 F 70 18 149/90 H 96 02/09/18 05:00 02/09/18 08:49 02/09/18 05:00 02/09/18 08:49 02/09/18 05:00 Oxygen Flow Rate (L/min) 2 Oxygen Delivery Method Nasal Cannula Weight: 97 kg Body Mass Index (BMI) 35.6 Intake and Output for Last 24 Hours 02/07/18 02/08/18 02/09/18 23:59 23:59 23:59 Intake Total 84 / 84 4637.8 / 4637.8 Output Total 900 / 900 Balance 84 / 84 3737.8 / 3737.8 Microbiology Past 72 Hours 02/07/18 22:58 Mucosa - Nose Influenza Types A,B Direct FA (JEZ) - Final Laboratory Results 02/08/18 11:43: POC Glucose 320 H 02/08/18 16:43: POC Glucose 191 H 02/08/18 21:00: Urine Color Yellow, Urine Clarity Clear, Urine pH 6.5, Ur Specific [place] 1.015, Urine Protein 15 H, Urine Glucose (UA) 100 H, Urine Ketones 15 H, Urine Occult Blood Negative, Urine Nitrite Negative, Urine Bilirubin Negative, Urine Urobilinogen 1 H, Ur Leukocyte Esterase Negative, Urine RBC 0-5 SEEN, Urine WBC 0-5 SEEN, Ur Squamous Epith Cells 0-5 SEEN, Urine Bacteria 0 SEEN, Hyaline Casts 5-10 SEEN, Fine Granular Casts 0-5 SEEN, Urine Mucus RARE 02/08/18 21:38: POC Glucose 362 H 02/09/18 06:57: POC Glucose 236 H Current Medications Albuterol Sulfate (Ventolin Aerosols) 2.5 mg INHALATION Q2H PRN PRN PRN Reason: SHORTNESS OF BREATH Albuterol/Ipratropium (Duoneb) 3 ml INHALATION Q4H.RT [facility] Last Admin: 02/09/18 04:25 Dose: Not Given Apixaban (Eliquis) 5 mg PO BID [facility] Last Admin: 02/09/18 08:48 Dose: 5 mg Ascorbic Acid (Vitamin C) 500 mg PO DAILY@0800 [facility] Last Admin: 02/09/18 08:48 Dose: 500 mg Aspirin (Aspirin, Baby) 81 mg PO DAILY@0800 [facility] Last Admin: 02/09/18 08:48 Dose: 81 mg Atorvastatin Calcium (Lipitor) 40 mg PO QHS [facility] Last Admin: 02/08/18 21:40 Dose: 40 mg Capsaicin (Zostrix) 1 applic TOPICAL 4X/DAY [facility] Last Admin: 02/09/18 08:58 Dose: Not Given Diltiazem HCl (Cardizem Cd) 180 mg PO DAILY [facility] Last Admin: 02/09/18 08:48 Dose: 180 mg Docusate Sodium (Colace) 100 mg PO DAILY PRN PRN PRN Reason: Constipation Duloxetine HCl (Cymbalta) 60 mg PO DAILY [facility] Last Admin: 02/09/18 08:47 Dose: 60 mg Ferrous Gluconate (Ferrous Gluconate) 325 mg PO DAILY@0800 [facility] Last Admin: 02/09/18 08:47 Dose: 325 mg Fluticasone Propionate (Flonase Nasal [place]) 2 spray NASAL DAILY [facility] Last Admin: 02/09/18 08:48 Dose: Not Given Furosemide (Lasix) 40 mg PO BIDLX [facility] Last Admin: 02/09/18 08:47 Dose: 40 mg Guaifenesin (Mucinex) 1,200 mg PO BID [facility] Last Admin: 02/09/18 08:48 Dose: 1,200 mg Sodium Chloride () 1,000 mls @ 75 mls/hr IV .[id number] [facility] Last Admin: 02/08/18 23:42 Dose: Not Given Ceftriaxone Sodium (Rocephin) 1 gm in 50 mls @ 100 mls/hr IV X1 ONE Stop: 02/09/18 17:29 Vancomycin HCl 1,250 mg/ (Sodium Chloride) 275 mls @ 183.333 mls/hr IV Q12H [facility] Last Admin: 02/09/18 05:08 Dose: 183.333 mls/hr Insulin Glargine (Lantus (Bkc)) 56 units SC BID [facility] Last Admin: 02/08/18 21:41 Dose: 56 unit Insulin Human Lispro (Humalog Kwikpen (Bkc)) 22 unit SC LUNCH [facility] Last Admin: 02/08/18 11:45 Dose: 22 u Insulin Human Lispro (Humalog Kwikpen (Bkc)) 24 unit SC DINNER [facility] Last Admin: 02/08/18 16:56 Dose: 24 u Insulin Human Lispro (Humalog Kwikpen (Bkc)) 14 unit SC BREAKFAST [facility] Last Admin: 02/09/18 08:55 Dose: 14 u Insulin Human Lispro (Humalog Kwikpen (Bkc)) 0 unit SC ACHS [facility] PRN Reason: Protocol Last Admin: 02/09/18 08:57 Dose: 2 units Isosorbide Mononitrate (Imdur) 90 mg PO DAILY [facility] Last Admin: 02/09/18 08:47 Dose: 90 mg Levothyroxine Sodium (Synthroid) 100 mcg PO DAILY@0600 [facility] Last Admin: 02/09/18 06:22 Dose: 100 mcg Magnesium Hydroxide (Milk Of Magnesia) 30 ml PO DAILY PRN PRN Reason: Constipation Methylprednisolone (Solu-Medrol) 40 mg IV Q8 [facility] Last Admin: 02/09/18 06:21 Dose: 40 mg Metoprolol Tartrate (Lopressor (Beta Kaye)) 100 mg PO BID [facility] Last Admin: 02/09/18 08:49 Dose: 100 mg Nutritional Formula (Lactose Free) (Glucerna Shake) 120 ml PO 4X/DAY [facility] Last Admin: 02/09/18 08:46 Dose: 120 ml Pantoprazole Sodium (Protonix) 40 mg PO BID [facility] Last Admin: 02/09/18 08:47 Dose: 40 mg Pregabalin (Lyrica) 100 mg PO TID [facility] Last Admin: 02/09/18 06:22 Dose: 100 mg Promethazine HCl (Phenergan Tablet) 25 mg PO Q6H PRN PRN PRN Reason: NAUSEA Senna (Senokot) 1 tablet PO BID [facility] Last Admin: 02/09/18 08:47 Dose: 1 tablet Sodium Chloride () 5 - 30 ml IV UD PRN PRN Reason: SALINE FLUSH Last Admin: 02/09/18 06:22 Dose: 10 ml Sucralfate (Carafate) 1 gm PO 1HR_ACHS [facility] Last Admin: 02/09/18 06:21 Dose: 1 gm Medical Necessity - Tobacco Use Smoking Status: Former smoker Assessment/Plan Active and Suspected Problems Atrial fibrillation with RVR (Acute) Patient is a 63-year-old lady admitted with progressive shortness of breath. An acute hypoxic and hypercapnic respiratory failure made, admitted to a monitored bed for subsequent management 1. Acute hypoxic and hypercapnic respiratory failure secondary to MRSA pneumonia given patient recent culture results: She was placed on noninvasive ventilationBiPAP on admission. Started on vancomycin consultation placed infectious disease. 2. Recurrent UTI with E. coli Rocephin 3. Paroxysmal A. fib with RVR patient was started on Cardizem drip which has since been weaned off and started on oral p.o. Cardizem 4. Coronary artery disease catheterization performed in 2018 demonstratedsingle-vessel coronary artery disease of left circumflex, occluded very small left circumflex with right to left collateral. LV gram EF 75%. Mid LAD 40%, distal LAD 60% mid circumflex occluded with [id number] collateral. Mid RCA less than 30%, right PDA less than 30% 5. Hypertension patient blood pressure low on admission and antihypertensives held 6. Hypothyroidism-patient is on levothyroxine home dose continued 7. Chronic hypoxic respiratory failure patient is on baseline home O2 8. Diabetes mellitus type 2 patient is a long acting insulin dose adjusted also placed on Accu-Cheks before meals and at bedtime covered with sliding scale insulin 9. Dyslipidemia-patient is on statin therapy, continued at home dose 10. Morbid obesity with BMI of 35.6 weight loss advised 11. Obstructive sleep apnea 12. GERD on PPI 13. A 1.1 cm opacity in the periphery of the right lower lobe. Patient informed of the results instructed to follow-up with PCP for repeat CT chest in 3 months. Also follow-up with her railroad mechanic Dr. Ramos with [facility] for repeat imaging studies 14. DVT prophylaxisLovenox Clinical Impression(s) from Imaging Studies Chest X-Ray 02/07/18 20:03 IMPRESSION: No acute cardiopulmonary abnormalities or changes. There is stable mild diffuse fibrosis. Electronically Signed: Lizette Sutherland MD at 20:54 EDT Tel Direct: [phone], Service support , Chest X-Ray 02/08/18 16:38 IMPRESSION: PICC line placement with tip in distal superior vena cava Electronically Signed: John Chavez MD at 18:15 EDT , Service support , Chest CTA 02/08/18 23:29 IMPRESSION: There is no evidence of pulmonary embolism, aortic aneurysm or aortic dissection. There are mild chronic changes in both lungs, right greater than left. There is no focal consolidation. There is no pleural effusion. Prominent lymph nodes in the mediastinum are likely reactive. The lymph nodes have decreased in size compared to the prior CT. There is a 1.1 cm opacity in the periphery of the right lower lobe. A follow-up CT of the chest is recommended in three months. Electronically Signed: Lizette Sutherland MD at 23:31 EDT Tel Direct: [phone], Service support , Active Medications Albuterol Sulfate (Ventolin Aerosols) 2.5 mg INHALATION Q2H PRN PRN PRN Reason: SHORTNESS OF BREATH Albuterol/Ipratropium (Duoneb) 3 ml INHALATION Q4H.RT [facility] Last Admin: 02/09/18 04:25 Dose: Not Given Apixaban (Eliquis) 5 mg PO BID [facility] Last Admin: 02/09/18 08:48 Dose: 5 mg Ascorbic Acid (Vitamin C) 500 mg PO DAILY@0800 [facility] Last Admin: 02/09/18 08:48 Dose: 500 mg Aspirin (Aspirin, Baby) 81 mg PO DAILY@0800 [facility] Last Admin: 02/09/18 08:48 Dose: 81 mg Atorvastatin Calcium (Lipitor) 40 mg PO QHS [facility] Last Admin: 02/08/18 21:40 Dose: 40 mg Capsaicin (Zostrix) 1 applic TOPICAL 4X/DAY [facility] Last Admin: 02/09/18 08:58 Dose: Not Given Diltiazem HCl (Cardizem Cd) 180 mg PO DAILY [facility] Last Admin: 02/09/18 08:48 Dose: 180 mg Docusate Sodium (Colace) 100 mg PO DAILY PRN PRN PRN Reason: Constipation Duloxetine HCl (Cymbalta) 60 mg PO DAILY [facility] Last Admin: 02/09/18 08:47 Dose: 60 mg Ferrous Gluconate (Ferrous Gluconate) 325 mg PO DAILY@0800 [facility] Last Admin: 02/09/18 08:47 Dose: 325 mg Fluticasone Propionate (Flonase Nasal [place]) 2 spray NASAL DAILY [facility] Last Admin: 02/09/18 08:48 Dose: Not Given Furosemide (Lasix) 40 mg PO BIDLX [facility] Last Admin: 02/09/18 08:47 Dose: 40 mg Guaifenesin (Mucinex) 1,200 mg PO BID [facility] Last Admin: 02/09/18 08:48 Dose: 1,200 mg Sodium Chloride () 1,000 mls @ 75 mls/hr IV .[id number] [facility] Last Admin: 02/08/18 23:42 Dose: Not Given Ceftriaxone Sodium (Rocephin) 1 gm in 50 mls @ 100 mls/hr IV X1 ONE Stop: 02/09/18 17:29 Vancomycin HCl 1,250 mg/ (Sodium Chloride) 275 mls @ 183.333 mls/hr IV Q12H [facility] Last Admin: 02/09/18 05:08 Dose: 183.333 mls/hr Insulin Glargine (Lantus (Bkc)) 56 units SC BID [facility] Last Admin: 02/08/18 21:41 Dose: 56 unit Insulin Human Lispro (Humalog Kwikpen (Bkc)) 22 unit SC LUNCH [facility] Last Admin: 02/08/18 11:45 Dose: 22 u Insulin Human Lispro (Humalog Kwikpen (Bkc)) 24 unit SC DINNER [facility] Last Admin: 02/08/18 16:56 Dose: 24 u Insulin Human Lispro (Humalog Kwikpen (Bkc)) 14 unit SC BREAKFAST [facility] Last Admin: 02/09/18 08:55 Dose: 14 u Insulin Human Lispro (Humalog Kwikpen (Bkc)) 0 unit SC ACHS [facility] PRN Reason: Protocol Last Admin: 02/09/18 08:57 Dose: 2 units Isosorbide Mononitrate (Imdur) 90 mg PO DAILY [facility] Last Admin: 02/09/18 08:47 Dose: 90 mg Levothyroxine Sodium (Synthroid) 100 mcg PO DAILY@0600 [facility] Last Admin: 02/09/18 06:22 Dose: 100 mcg Magnesium Hydroxide (Milk Of Magnesia) 30 ml PO DAILY PRN PRN Reason: Constipation Methylprednisolone (Solu-Medrol) 40 mg IV Q8 [facility] Last Admin: 02/09/18 06:21 Dose: 40 mg Metoprolol Tartrate (Lopressor (Beta Kaye)) 100 mg PO BID [facility] Last Admin: 02/09/18 08:49 Dose: 100 mg Nutritional Formula (Lactose Free) (Glucerna Shake) 120 ml PO 4X/DAY [facility] Last Admin: 02/09/18 08:46 Dose: 120 ml Pantoprazole Sodium (Protonix) 40 mg PO BID [facility] Last Admin: 02/09/18 08:47 Dose: 40 mg Pregabalin (Lyrica) 100 mg PO TID [facility] Last Admin: 02/09/18 06:22 Dose: 100 mg Promethazine HCl (Phenergan Tablet) 25 mg PO Q6H PRN PRN PRN Reason: NAUSEA Senna (Senokot) 1 tablet PO BID [facility] Last Admin: 02/09/18 08:47 Dose: 1 tablet Sodium Chloride () 5 - 30 ml IV UD PRN PRN Reason: SALINE FLUSH Last Admin: 02/09/18 06:22 Dose: 10 ml Sucralfate (Carafate) 1 gm PO 1HR_ACHS [facility] Last Admin: 02/09/18 06:21 Dose: 1 gm Code Visit Inpatient E&M: 88245 Subs Hosp L3
[2018-02-09] MEDS: Insulin Lispro 100 UNIT/ML INSULN.PEN 22 UNIT SC ×2 (11:03→11:09)
[2018-02-09 11:15] LABS: Bedside Glucose 292 mg/dL (70-110)
[2018-02-09] MEDS: Ipratropium/Albuterol Sulfate 3 ML AMPUL.NEB INHALATION ×3 (11:15→20:33)
--- NOTE | 2018-02-09 11:38 | CASEMGMT ---
BLAKE returned Keara Monte's call. BLAKE left her a message letting her know patient was discharged Friday02-06-18 evening. BLAKE then let her know patient was readmitted Friday. Charley BARRETT
--- NOTE | 2018-02-09 13:36 | CASEMGMT ---
Readmission chart review-Pt was readmitted 02/07/18 after being discharged 02/06/18 with [facility] set up. See CM assessment completed by this RN CM on 02/04/[address]. [address] Hogan, pt is not agreeable to SNF placement at this time. CM will follow PT/OT and follow for any further discharge planning/needs. SStaten RN JOSEFINA
--- NOTE | 2018-02-09 13:42 | CON.PCM_ITS ---
Problem List (1) COPD with moderate acute bronchitis Status: Acute Reason for Consult: mrsa Consulted by: Dr. Hogan History of Present Illness: The patient is a 63 year old F with COPD who was discharged 02/05 after admission with COPD and human metapneumovirus and then readmitted 2 days later due to worsening cough, SOB, not feeling well at home. Cough with irvin sputum. No fever or chills. Denies dysuria, no changes in urine odor/color/frequency. Readmitted, started on vanc/ceftriaxone due to mrsa in sputum and ecoli in urine. Feeling better, breathing easier. Full ROS performed and neg except as noted above. - Medical History Past Medical History (Chronic Problems): Chronic Problems Diabetes mellitus type 2 in obese (Chronic) Coronary arteriosclerosis (Chronic) cath 05/2015 mild-moderate disease medical therapy recommended Hypothyroidism (Chronic) Hyperlipemia (Chronic) GERD (gastroesophageal reflux disease) (Chronic) Hypertension (Chronic) COPD (chronic obstructive pulmonary disease) (Chronic) Chronic respiratory insufficiency (Chronic) On home oxygen at night S/P PTCA (percutaneous transluminal coronary angioplasty) (Chronic) PARESH (obstructive sleep apnea) (Chronic) Allergies/Adverse Reactions: Allergies ciprofloxacin [From Cipro] Allergy (Verified 02/07/18 19:42) Hives latex Allergy (Verified 02/07/18 19:42) matos me niacin [From Niaspan Extended-Release] Allergy (Verified 02/07/18 19:42) Hives ondansetron [From Zofran] Allergy (Verified 02/07/18 19:42) Unknown Xanthines Allergy (Verified 02/07/18 19:42) Unknown Penicillins Adverse Reaction (Mild, Verified 02/07/18 19:42) Itching/redness orphenadrine citrate [From Norgesic] Adverse Reaction (Verified 02/07/18 19:42) groggy medical tape Adverse Reaction (Uncoded 02/07/18 19:42) blisters Home Medications: Ambulatory Orders Medication Instructions Recorded Albuterol Inhaler [Ventolin Hfa] 2 puff INHALATION Q4H PRN PRN 02/03/18 Apixaban [Eliquis] 2.5 mg PO BID 02/03/18 Ascorbic Acid [Vitamin C] 500 mg PO DAILY@0800 02/03/18 Aspirin [Aspirin, Baby] 81 mg PO DAILY@0800 02/03/18 Atorvastatin Calcium [Lipitor] 40 mg PO QHS 02/03/18 Capsaicin 1 dose TP 4X/DAY 02/03/18 Diltiazem HCl [Cartia Xt] 180 mg PO DAILY 02/03/18 Docusate Sodium [Stool Softener] 100 mg PO DAILY PRN PRN 02/03/18 Duloxetine Hcl [Cymbalta] 60 mg PO DAILY 02/03/18 Estradiol 1 dose VG [id number] 02/03/18 Ferrous Gluconate 325 mg PO DAILY@0800 02/03/18 Fluticasone 0.05% [Flonase Nasal 2 spray NASAL DAILY 02/03/18 [place]] Furosemide [Lasix] 40 mg PO BIDLX 02/03/18 Insulin Glargine,Hum.rec.anlog 56 unit SQ BID 02/03/18 [Lantus] Insulin Lispro [Humalog KwikPen] 22 unit SQ LUNCH 02/03/18 Insulin Lispro [Humalog KwikPen] 24 unit SQ DINNER 02/03/18 Insulin Lispro [Humalog] 14 unit SQ BREAKFAST 02/03/18 Isosorbide Mononitrate [Imdur] 90 mg PO DAILY 02/03/18 Levothyroxine [Synthroid] 100 mcg PO DAILY 02/03/18 Metformin HCl [Metformin HCl ER] 1,000 mg PO BID 02/03/18 Oxycodone HCl [Roxicodone] 5 - 10 mg PO Q4H PRN 02/03/18 Pantoprazole Sodium [Protonix] 40 mg PO BID 02/03/18 Pregabalin [Lyrica] 100 mg PO TID 02/03/18 Sennosides [Claudia-Ramila] 8.6 mg PO BID 02/03/18 Sucralfate [Carafate] 1 gm PO 4X/DAY 02/03/18 proMETHazine tablet [Phenergan 25 mg PO Q6H PRN PRN 02/03/18 tablet] Glucerna Shake 120 ml PO 4X/DAY #100 liquid 02/05/18 Guaifenesin [Mucinex] 1,200 mg PO BID #20 tab 02/05/18 Ipratropium/Albuterol Sulfate 3 ml INHALATION Q4H.RT #100 02/05/18 [Duoneb] ampul.neb Metoprolol Tartrate [Lopressor 100 mg PO BID #60 tab 02/05/18 (beta sudhakar)] Prednisone 10 mg PO UD #30 tab 02/05/18 - Social History SMOKING STATUS:: Former smoker Vital Signs Temp Pulse Resp BP Pulse Ox 97.6 F L 73 18 138/65 H 100 02/09/18 11:00 02/09/18 11:16 02/09/18 11:15 02/09/18 11:00 02/09/18 11:00 Oxygen Flow Rate (L/min) 2 Oxygen Delivery Method Nasal Cannula Weight: 97 kg Body Mass Index (BMI) 35.6 Microbiology Past 72 Hours 02/07/18 22:58 Influenza Types A,B Direct FA (JEZ) - Final Mucosa - Nose Laboratory Tests Past 24 Hrs 02/08/18 21:00 Urine Color Yellow Urine Clarity Clear Urine pH 6.5 Ur Specific [place] 1.015 Urine Protein 15 H Urine Glucose (UA) 100 H Urine Ketones 15 H Urine Occult Blood Negative Urine Nitrite Negative Urine Bilirubin Negative Urine Urobilinogen 1 H Ur Leukocyte Esterase Negative Urine RBC 0-5 SEEN Urine WBC 0-5 SEEN Ur Squamous Epith Cells 0-5 SEEN Urine Bacteria 0 SEEN Hyaline Casts 5-10 SEEN Fine Granular Casts 0-5 SEEN Urine Mucus RARE - Other Studies Radiology: [] reviewed Other Studies: [] Route of nutrition/ use of supplements: [] Nutritional Intake: [] IV Site: [] Maradiaga Catheter: [] - Physical Exam General: Alert, Cooperative, No apparent distress HEENT: Atraumatic, PERRLA, EOMI Neck: Supple, No Nodes Lungs: Diminished Cardiovascular: Regular rate, Regular Rhythm, No murmurs Abdomen: Bowel Sounds Present, Soft, Non Tender, Non-Distended Extremities: No edema Skin: No rashes IV Site: Peripheral Musculoskeletal: No Tenderness to Palpation of Joints or Extremities Neurological: Cranial nerves II-XII grossly intact - Assessment/Plan Antibiotics: [] Assessment/Plan: [] Active and Suspected Problems Atrial fibrillation with RVR (Acute) COPD exacerbation - Improving. Recent (+) for human metapneumovirus. Sputum with some MRSA, but no focal pneumonia on chest CT. Ucx with ecoli, mild pyuria on UA, but no urinary symptoms. Currently on vanc/ceftriaxone. Not clear how much the mrsa or ecoli were contributing to her presentation. No fever, no leukocytosis. Will cover these bacteria with po bactrim DS which she reports tolerating in past with no issue. Stop date planned for 02/14/18. Thank you, will follow.
[2018-02-09] MEDS: Smz/Tmp Ds Tablet 1 TABLET PO ×2 (14:32→22:26)
[2018-02-09] MEDS: 0.9% Normal Saline 1,000 ML 75 ML IV (14:32)
[2018-02-09] MEDS: Ceftriaxone 1 GM/50 ML BAG IV (17:11)
[2018-02-09] MEDS: Insulin Lispro 100 UNIT/ML INSULN.PEN 24 UNIT SC (17:14)
[2018-02-09 17:25] LABS: Bedside Glucose 271 mg/dL (70-110)
[2018-02-09] MEDS: Atorvastatin Calcium 40 MG Tablet PO (22:27)
[2018-02-09 22:51] LABS: Bedside Glucose 256 mg/dL (70-110)
[2018-02-10] VITALS (20 sets, daily range): BP systolic 130–142; BP diastolic 77–90; PULSE 65–92; RESP 12–18; TEMP 35.8–37.7; O2SAT 95–100
[2018-02-10] MEDS: Ipratropium/Albuterol Sulfate 3 ML AMPUL.NEB INHALATION ×4 (00:08→19:34)
[2018-02-10] MEDS: 0.9% Normal Saline 1,000 ML 75 ML IV ×2 (03:07→16:18)
[2018-02-10] MEDS: 0.9% NaCl Peripheral Flush Adult/Peds IV ×3 (04:55→14:20)
[2018-02-10 05:32] LABS: Vancomycin, Trough Level 5.2 ug/mL (5.0-15.0)
[2018-02-10] MEDS: Sucralfate 1 GM Tablet PO ×4 (06:30→21:11)
[2018-02-10] MEDS: Levothyroxine 100 MCG Tablet PO (06:30)
[2018-02-10] MEDS: Pregabalin 50 MG Capsule 100 MG PO ×3 (06:30→21:14)
[2018-02-10 06:45] LABS: Bedside Glucose 229 mg/dL (70-110)
[2018-02-10] MEDS: Aspirin 81 MG TAB.CHEW PO (08:42)
[2018-02-10] MEDS: Smz/Tmp Ds Tablet 1 TABLET PO ×2 (08:42→21:13)
[2018-02-10] MEDS: Ferrous Gluconate 325 MG Tablet PO (08:42)
[2018-02-10] MEDS: Glucerna Shake 120 ML LIQUID PO ×4 (08:43→21:14)
[2018-02-10] MEDS: DULoxetine Hcl 60 MG Capsule PO (08:43)
[2018-02-10] MEDS: dilTIAZem CD 180 MG Capsule PO (08:43)
[2018-02-10] MEDS: Isosorbide Mononitrate 30 MG Tablet 90 MG PO (08:43)
[2018-02-10] MEDS: APIXABAN 5 MG TABLET PO ×2 (08:43→21:12)
[2018-02-10] MEDS: Furosemide 40 MG Tablet PO ×2 (08:43→17:35)
[2018-02-10] MEDS: Metoprolol Tartrate 100 MG Tablet PO ×2 (08:43→21:14)
[2018-02-10] MEDS: Senna Tablet 1 TABLET PO ×2 (08:44→21:13)
[2018-02-10] MEDS: guaiFENesin 1,200 MG Tablet 1200 MG PO ×2 (08:44→21:13)
[2018-02-10] MEDS: Fluticasone 0.05% 1 SPRAY NASAL.SRY 2 SPRAY NASAL (08:44)
[2018-02-10] MEDS: Pantoprazole Sodium 40 MG Tablet PO ×2 (08:44→21:13)
[2018-02-10] MEDS: Insulin Lispro 100 UNIT/ML INSULN.PEN SC ×4 (09:47→21:18)
[2018-02-10] MEDS: Insulin Lispro 100 UNIT/ML INSULN.PEN 14 UNIT SC (09:47)
--- NOTE | 2018-02-10 10:25 | CASEMGMT ---
Call to Uma at [facility] to notify of admission and she states they did not start care on pt due to quick return to hospital. Per Uma, [facility] does not need any new orders, just a resumption of care order. Order placed at this time. Magui SANTOS CM
--- NOTE | 2018-02-10 11:15 | PCM.PN.HOSP ---
Patient Problems: Active and Suspected Problems Atrial fibrillation with RVR (Acute) Subjective: Seen still complains of some shortness of breath with activity. Did discuss the possibility of patient going to [facility] facility she declined the antibiotic regimen adjusted by infectious disease Objective: GENERAL: Cooperative HEENT: Dry oral mucosa NECK; supple, normal thyroid, CHEST: Diminished to auscultation bilaterally, HEART: Regular S1 S2, tachycardic ABDOMEN: soft, non-tender, normoactive bowel sounds, RECTAL: deferred MUSCULOSKELETAL: No muscle wasting EXTREMITIES: No clubbing, no cyanosis. PERSONAL FINANCIAL ADVISOR: Awake, no lateralizing signs Vitals/I&O's: Vital Signs Temp Pulse Resp BP Pulse Ox 99.9 F H 92 16 137/77 H 100 02/10/18 08:29 02/10/18 08:43 02/10/18 08:29 02/10/18 08:29 02/10/18 08:29 Oxygen Flow Rate (L/min) 2 Oxygen Delivery Method Nasal Cannula Weight: 97 kg Body Mass Index (BMI) 35.6 Intake and Output for Last 24 Hours 02/08/18 02/09/18 02/10/18 23:59 23:59 23:59 Intake Total 4637.8 / 4637.8 3082 / 3082 100 / 100 Output Total 900 / 900 1999 / 1999 0 / 0 Balance 3737.8 / 3737.8 1082 / 1082 100 / 100 Microbiology Past 72 Hours 02/08/18 21:00 Urine, Clean Catch Urine Culture - Preliminary Culture exhibits no growth. 02/07/18 22:58 Mucosa - Nose Influenza Types A,B Direct FA (JEZ) - Final Laboratory Results 02/09/18 11:08: POC Glucose 292 H 02/09/18 17:09: POC Glucose 271 H 02/09/18 22:34: POC Glucose 256 H 02/10/18 05:00: Vancomycin Trough 5.2 02/10/18 06:36: POC Glucose 229 H Current Medications Albuterol Sulfate (Ventolin Aerosols) 2.5 mg INHALATION Q2H PRN PRN PRN Reason: SHORTNESS OF BREATH Albuterol/Ipratropium (Duoneb) 3 ml INHALATION Q4H.RT [facility] Last Admin: 02/10/18 07:26 Dose: 3 ml Apixaban (Eliquis) 5 mg PO BID [facility] Last Admin: 02/10/18 08:43 Dose: 5 mg Ascorbic Acid (Vitamin C) 500 mg PO DAILY@0800 [facility] Last Admin: 02/09/18 08:48 Dose: 500 mg Aspirin (Aspirin, Baby) 81 mg PO DAILY@0800 [facility] Last Admin: 02/10/18 08:42 Dose: 81 mg Atorvastatin Calcium (Lipitor) 40 mg PO QHS [facility] Last Admin: 02/09/18 22:27 Dose: 40 mg Capsaicin (Zostrix) 1 applic TOPICAL 4X/DAY [facility] Last Admin: 02/10/18 08:45 Dose: Not Given Diltiazem HCl (Cardizem Cd) 180 mg PO DAILY [facility] Last Admin: 02/10/18 08:43 Dose: 180 mg Docusate Sodium (Colace) 100 mg PO DAILY PRN PRN PRN Reason: Constipation Duloxetine HCl (Cymbalta) 60 mg PO DAILY [facility] Last Admin: 02/10/18 08:43 Dose: 60 mg Ferrous Gluconate (Ferrous Gluconate) 325 mg PO DAILY@0800 [facility] Last Admin: 02/10/18 08:42 Dose: 325 mg Fluticasone Propionate (Flonase Nasal [place]) 2 spray NASAL DAILY [facility] Last Admin: 02/10/18 08:44 Dose: 2 spray Furosemide (Lasix) 40 mg PO BIDLX [facility] Last Admin: 02/10/18 08:43 Dose: 40 mg Guaifenesin (Mucinex) 1,200 mg PO BID [facility] Last Admin: 02/10/18 08:44 Dose: 1,200 mg Sodium Chloride () 1,000 mls @ 75 mls/hr IV .[id number] [facility] Last Admin: 02/10/18 03:07 Dose: 75 mls/hr Insulin Glargine (Lantus (Bkc)) 56 units SC BID [facility] Last Admin: 02/10/18 08:45 Dose: 56 unit Insulin Human Lispro (Humalog Kwikpen (Bkc)) 22 unit SC LUNCH [facility] Last Admin: 02/09/18 11:09 Dose: 22 u Insulin Human Lispro (Humalog Kwikpen (Bkc)) 24 unit SC DINNER [facility] Last Admin: 02/09/18 17:14 Dose: 24 u Insulin Human Lispro (Humalog Kwikpen (Bkc)) 14 unit SC BREAKFAST [facility] Last Admin: 02/10/18 09:47 Dose: 14 u Insulin Human Lispro (Humalog Kwikpen (Bkc)) 0 unit SC ACHS [facility] PRN Reason: Protocol Last Admin: 02/10/18 09:47 Dose: 2 units Isosorbide Mononitrate (Imdur) 90 mg PO DAILY [facility] Last Admin: 02/10/18 08:43 Dose: 90 mg Levothyroxine Sodium (Synthroid) 100 mcg PO DAILY@0600 [facility] Last Admin: 02/10/18 06:30 Dose: 100 mcg Magnesium Hydroxide (Milk Of Magnesia) 30 ml PO DAILY PRN PRN Reason: Constipation Methylprednisolone (Solu-Medrol) 40 mg IV Q8 [facility] Last Admin: 02/10/18 06:31 Dose: 40 mg Metoprolol Tartrate (Lopressor (Beta Kaye)) 100 mg PO BID [facility] Last Admin: 02/10/18 08:43 Dose: 100 mg Nutritional Formula (Lactose Free) (Glucerna Shake) 120 ml PO 4X/DAY [facility] Last Admin: 02/10/18 08:43 Dose: 120 ml Pantoprazole Sodium (Protonix) 40 mg PO BID [facility] Last Admin: 02/10/18 08:44 Dose: 40 mg Pregabalin (Lyrica) 100 mg PO TID [facility] Last Admin: 02/10/18 06:30 Dose: 100 mg Promethazine HCl (Phenergan Tablet) 25 mg PO Q6H PRN PRN PRN Reason: NAUSEA Senna (Senokot) 1 tablet PO BID [facility] Last Admin: 02/10/18 08:44 Dose: 1 tablet Sodium Chloride () 5 - 30 ml IV UD PRN PRN Reason: SALINE FLUSH Last Admin: 02/10/18 06:31 Dose: 10 ml Sucralfate (Carafate) 1 gm PO 1HR_ACHS [facility] Last Admin: 02/10/18 06:30 Dose: 1 gm Trimethoprim/Sulfamethoxazole (Bactrim Ds) 1 tablet PO BID [facility] Last Admin: 02/10/18 08:42 Dose: 1 tablet Medical Necessity - Tobacco Use Smoking Status: Former smoker Assessment/Plan Active and Suspected Problems Atrial fibrillation with RVR (Acute) Patient is a 63-year-old lady admitted with progressive shortness of breath. An acute hypoxic and hypercapnic respiratory failure made, admitted to a monitored bed for subsequent management 1. Acute hypoxic and hypercapnic respiratory failure secondary to MRSA pneumonia given patient recent culture results: She was placed on noninvasive ventilationBiPAP on admission. Started on vancomycin consultation placed infectious disease. Was seen by Dr. Valdovinos who recommended starting patient on p.o. Bactrim DS 2. Recurrent UTI with E. coli Rocephin cultures during this current hospital stay came back negative; Rocephin discontinued 3. Paroxysmal A. fib with RVR patient was started on Cardizem drip which has since been weaned off and started on oral p.o. Cardizem 4. Coronary artery disease catheterization performed in 2018 demonstratedsingle-vessel coronary artery disease of left circumflex, occluded very small left circumflex with right to left collateral. LV gram EF 75%. Mid LAD 40%, distal LAD 60% mid circumflex occluded with [id number] collateral. Mid RCA less than 30%, right PDA less than 30% 5. Hypertension patient blood pressure low on admission and antihypertensives held 6. Hypothyroidism-patient is on levothyroxine home dose continued 7. Chronic hypoxic respiratory failure patient is on baseline home O2 8. Diabetes mellitus type 2 patient is a long acting insulin dose adjusted also placed on Accu-Cheks before meals and at bedtime covered with sliding scale insulin 9. Dyslipidemia-patient is on statin therapy, continued at home dose 10. Morbid obesity with BMI of 35.6 weight loss advised 11. Obstructive sleep apnea 12. GERD on PPI 13. A 1.1 cm opacity in the periphery of the right lower lobe. Patient informed of the results instructed to follow-up with PCP for repeat CT chest in 3 months. Also follow-up with her hydrant setter Dr. Ramos with [facility] for repeat imaging studies 14. DVT prophylaxisLovenox Clinical Impression(s) from Imaging Studies Chest X-Ray 02/07/18 20:03 IMPRESSION: No acute cardiopulmonary abnormalities or changes. There is stable mild diffuse fibrosis. Electronically Signed: Lizette Sutherland MD at 20:54 EDT Tel Direct: [phone], Service support , Chest X-Ray 02/08/18 16:38 IMPRESSION: PICC line placement with tip in distal superior vena cava Electronically Signed: John Chavez MD at 18:15 EDT , Service support , Chest CTA 02/08/18 23:29 IMPRESSION: There is no evidence of pulmonary embolism, aortic aneurysm or aortic dissection. There are mild chronic changes in both lungs, right greater than left. There is no focal consolidation. There is no pleural effusion. Prominent lymph nodes in the mediastinum are likely reactive. The lymph nodes have decreased in size compared to the prior CT. There is a 1.1 cm opacity in the periphery of the right lower lobe. A follow-up CT of the chest is recommended in three months. Electronically Signed: Lizette Sutherland MD at 23:31 EDT Tel Direct: [phone], Service support , Active Medications Albuterol Sulfate (Ventolin Aerosols) 2.5 mg INHALATION Q2H PRN PRN PRN Reason: SHORTNESS OF BREATH Albuterol/Ipratropium (Duoneb) 3 ml INHALATION Q4H.RT [facility] Last Admin: 02/10/18 07:26 Dose: 3 ml Apixaban (Eliquis) 5 mg PO BID [facility] Last Admin: 02/10/18 08:43 Dose: 5 mg Ascorbic Acid (Vitamin C) 500 mg PO DAILY@0800 [facility] Last Admin: 02/09/18 08:48 Dose: 500 mg Aspirin (Aspirin, Baby) 81 mg PO DAILY@0800 [facility] Last Admin: 02/10/18 08:42 Dose: 81 mg Atorvastatin Calcium (Lipitor) 40 mg PO QHS [facility] Last Admin: 02/09/18 22:27 Dose: 40 mg Capsaicin (Zostrix) 1 applic TOPICAL 4X/DAY [facility] Last Admin: 02/10/18 08:45 Dose: Not Given Diltiazem HCl (Cardizem Cd) 180 mg PO DAILY [facility] Last Admin: 02/10/18 08:43 Dose: 180 mg Docusate Sodium (Colace) 100 mg PO DAILY PRN PRN PRN Reason: Constipation Duloxetine HCl (Cymbalta) 60 mg PO DAILY [facility] Last Admin: 02/10/18 08:43 Dose: 60 mg Ferrous Gluconate (Ferrous Gluconate) 325 mg PO DAILY@0800 [facility] Last Admin: 02/10/18 08:42 Dose: 325 mg Fluticasone Propionate (Flonase Nasal [place]) 2 spray NASAL DAILY [facility] Last Admin: 02/10/18 08:44 Dose: 2 spray Furosemide (Lasix) 40 mg PO BIDLX [facility] Last Admin: 02/10/18 08:43 Dose: 40 mg Guaifenesin (Mucinex) 1,200 mg PO BID [facility] Last Admin: 02/10/18 08:44 Dose: 1,200 mg Sodium Chloride () 1,000 mls @ 75 mls/hr IV .[id number] [facility] Last Admin: 02/10/18 03:07 Dose: 75 mls/hr Insulin Glargine (Lantus (Bkc)) 56 units SC BID [facility] Last Admin: 02/10/18 08:45 Dose: 56 unit Insulin Human Lispro (Humalog Kwikpen (Bkc)) 22 unit SC LUNCH [facility] Last Admin: 02/09/18 11:09 Dose: 22 u Insulin Human Lispro (Humalog Kwikpen (Bkc)) 24 unit SC DINNER [facility] Last Admin: 02/09/18 17:14 Dose: 24 u Insulin Human Lispro (Humalog Kwikpen (Bkc)) 14 unit SC BREAKFAST [facility] Last Admin: 02/10/18 09:47 Dose: 14 u Insulin Human Lispro (Humalog Kwikpen (Bkc)) 0 unit SC ACHS [facility] PRN Reason: Protocol Last Admin: 02/10/18 09:47 Dose: 2 units Isosorbide Mononitrate (Imdur) 90 mg PO DAILY [facility] Last Admin: 02/10/18 08:43 Dose: 90 mg Levothyroxine Sodium (Synthroid) 100 mcg PO DAILY@0600 [facility] Last Admin: 02/10/18 06:30 Dose: 100 mcg Magnesium Hydroxide (Milk Of Magnesia) 30 ml PO DAILY PRN PRN Reason: Constipation Methylprednisolone (Solu-Medrol) 40 mg IV Q8 [facility] Last Admin: 02/10/18 06:31 Dose: 40 mg Metoprolol Tartrate (Lopressor (Beta Kaye)) 100 mg PO BID [facility] Last Admin: 02/10/18 08:43 Dose: 100 mg Nutritional Formula (Lactose Free) (Glucerna Shake) 120 ml PO 4X/DAY [facility] Last Admin: 02/10/18 08:43 Dose: 120 ml Pantoprazole Sodium (Protonix) 40 mg PO BID [facility] Last Admin: 02/10/18 08:44 Dose: 40 mg Pregabalin (Lyrica) 100 mg PO TID [facility] Last Admin: 02/10/18 06:30 Dose: 100 mg Promethazine HCl (Phenergan Tablet) 25 mg PO Q6H PRN PRN PRN Reason: NAUSEA Senna (Senokot) 1 tablet PO BID [facility] Last Admin: 02/10/18 08:44 Dose: 1 tablet Sodium Chloride () 5 - 30 ml IV UD PRN PRN Reason: SALINE FLUSH Last Admin: 02/10/18 06:31 Dose: 10 ml Sucralfate (Carafate) 1 gm PO 1HR_ACHS [facility] Last Admin: 02/10/18 06:30 Dose: 1 gm Trimethoprim/Sulfamethoxazole (Bactrim Ds) 1 tablet PO BID [facility] Last Admin: 02/10/18 08:42 Dose: 1 tablet Code Visit Inpatient E&M: 22676 Subs Hosp L2
--- NOTE | 2018-02-10 11:19 | PN_ITS ---
Patient Problems: Active and Suspected Problems Atrial fibrillation with RVR (Acute) Subjective: Seen still complains of some shortness of breath with activity. Did discuss the possibility of patient going to senior care facility she declined the antibiotic regimen adjusted by infectious disease Objective: GENERAL: Cooperative HEENT: Dry oral mucosa NECK; supple, normal thyroid, CHEST: Diminished to auscultation bilaterally, HEART: Regular S1 S2, tachycardic ABDOMEN: soft, non-tender, normoactive bowel sounds, RECTAL: deferred MUSCULOSKELETAL: No muscle wasting EXTREMITIES: No clubbing, no cyanosis. PROJECT DEVELOPMENT COORDINATOR: Awake, no lateralizing signs Vitals/I&O's: Vital Signs Temp Pulse Resp BP Pulse Ox 99.9 F H 92 16 137/77 H 100 02/10/18 08:29 02/10/18 08:43 02/10/18 08:29 02/10/18 08:29 02/10/18 08:29 Oxygen Flow Rate (L/min) 2 Oxygen Delivery Method Nasal Cannula Weight: 97 kg Body Mass Index (BMI) 35.6 Intake and Output for Last 24 Hours 02/08/18 02/09/18 02/10/18 23:59 23:59 23:59 Intake Total 4637.8 / 4637.8 3082 / 3082 100 / 100 Output Total 900 / 900 1999 / 1999 0 / 0 Balance 3737.8 / 3737.8 1082 / 1082 100 / 100 Microbiology Past 72 Hours 02/08/18 21:00 Urine, Clean Catch Urine Culture - Preliminary Culture exhibits no growth. 02/07/18 22:58 Mucosa - Nose Influenza Types A,B Direct FA (JEZ) - Final Laboratory Results 02/09/18 11:08: POC Glucose 292 H 02/09/18 17:09: POC Glucose 271 H 02/09/18 22:34: POC Glucose 256 H 02/10/18 05:00: Vancomycin Trough 5.2 02/10/18 06:36: POC Glucose 229 H Current Medications Albuterol Sulfate (Ventolin Aerosols) 2.5 mg INHALATION Q2H PRN PRN PRN Reason: SHORTNESS OF BREATH Albuterol/Ipratropium (Duoneb) 3 ml INHALATION Q4H.RT [facility] Last Admin: 02/10/18 07:26 Dose: 3 ml Apixaban (Eliquis) 5 mg PO BID [facility] Last Admin: 02/10/18 08:43 Dose: 5 mg Ascorbic Acid (Vitamin C) 500 mg PO DAILY@0800 [facility] Last Admin: 02/09/18 08:48 Dose: 500 mg Aspirin (Aspirin, Baby) 81 mg PO DAILY@0800 [facility] Last Admin: 02/10/18 08:42 Dose: 81 mg Atorvastatin Calcium (Lipitor) 40 mg PO QHS [facility] Last Admin: 02/09/18 22:27 Dose: 40 mg Capsaicin (Zostrix) 1 applic TOPICAL 4X/DAY [facility] Last Admin: 02/10/18 08:45 Dose: Not Given Diltiazem HCl (Cardizem Cd) 180 mg PO DAILY [facility] Last Admin: 02/10/18 08:43 Dose: 180 mg Docusate Sodium (Colace) 100 mg PO DAILY PRN PRN PRN Reason: Constipation Duloxetine HCl (Cymbalta) 60 mg PO DAILY [facility] Last Admin: 02/10/18 08:43 Dose: 60 mg Ferrous Gluconate (Ferrous Gluconate) 325 mg PO DAILY@0800 [facility] Last Admin: 02/10/18 08:42 Dose: 325 mg Fluticasone Propionate (Flonase Nasal [place]) 2 spray NASAL DAILY [facility] Last Admin: 02/10/18 08:44 Dose: 2 spray Furosemide (Lasix) 40 mg PO BIDLX [facility] Last Admin: 02/10/18 08:43 Dose: 40 mg Guaifenesin (Mucinex) 1,200 mg PO BID [facility] Last Admin: 02/10/18 08:44 Dose: 1,200 mg Sodium Chloride () 1,000 mls @ 75 mls/hr IV .[id number] [facility] Last Admin: 02/10/18 03:07 Dose: 75 mls/hr Insulin Glargine (Lantus (Bkc)) 56 units SC BID [facility] Last Admin: 02/10/18 08:45 Dose: 56 unit Insulin Human Lispro (Humalog Kwikpen (Bkc)) 22 unit SC LUNCH [facility] Last Admin: 02/09/18 11:09 Dose: 22 u Insulin Human Lispro (Humalog Kwikpen (Bkc)) 24 unit SC DINNER [facility] Last Admin: 02/09/18 17:14 Dose: 24 u Insulin Human Lispro (Humalog Kwikpen (Bkc)) 14 unit SC BREAKFAST [facility] Last Admin: 02/10/18 09:47 Dose: 14 u Insulin Human Lispro (Humalog Kwikpen (Bkc)) 0 unit SC ACHS [facility] PRN Reason: Protocol Last Admin: 02/10/18 09:47 Dose: 2 units Isosorbide Mononitrate (Imdur) 90 mg PO DAILY [facility] Last Admin: 02/10/18 08:43 Dose: 90 mg Levothyroxine Sodium (Synthroid) 100 mcg PO DAILY@0600 [facility] Last Admin: 02/10/18 06:30 Dose: 100 mcg Magnesium Hydroxide (Milk Of Magnesia) 30 ml PO DAILY PRN PRN Reason: Constipation Methylprednisolone (Solu-Medrol) 40 mg IV Q8 [facility] Last Admin: 02/10/18 06:31 Dose: 40 mg Metoprolol Tartrate (Lopressor (Beta Kaye)) 100 mg PO BID [facility] Last Admin: 02/10/18 08:43 Dose: 100 mg Nutritional Formula (Lactose Free) (Glucerna Shake) 120 ml PO 4X/DAY [facility] Last Admin: 02/10/18 08:43 Dose: 120 ml Pantoprazole Sodium (Protonix) 40 mg PO BID [facility] Last Admin: 02/10/18 08:44 Dose: 40 mg Pregabalin (Lyrica) 100 mg PO TID [facility] Last Admin: 02/10/18 06:30 Dose: 100 mg Promethazine HCl (Phenergan Tablet) 25 mg PO Q6H PRN PRN PRN Reason: NAUSEA Senna (Senokot) 1 tablet PO BID [facility] Last Admin: 02/10/18 08:44 Dose: 1 tablet Sodium Chloride () 5 - 30 ml IV UD PRN PRN Reason: SALINE FLUSH Last Admin: 02/10/18 06:31 Dose: 10 ml Sucralfate (Carafate) 1 gm PO 1HR_ACHS [facility] Last Admin: 02/10/18 06:30 Dose: 1 gm Trimethoprim/Sulfamethoxazole (Bactrim Ds) 1 tablet PO BID [facility] Last Admin: 02/10/18 08:42 Dose: 1 tablet Medical Necessity - Tobacco Use Smoking Status: Former smoker Assessment/Plan Active and Suspected Problems Atrial fibrillation with RVR (Acute) Patient is a 63-year-old lady admitted with progressive shortness of breath. An acute hypoxic and hypercapnic respiratory failure made, admitted to a monitored bed for subsequent management 1. Acute hypoxic and hypercapnic respiratory failure secondary to MRSA pneumonia given patient recent culture results: She was placed on noninvasive ventilation?BiPAP on admission. Started on vancomycin consultation placed infectious disease. Was seen by Dr. Valdovinos who recommended starting patient on p.o. Bactrim DS 2. Recurrent UTI with E. coli Rocephin cultures during this current hospital stay came back negative; Rocephin discontinued 3. Paroxysmal A. fib with RVR patient was started on Cardizem drip which has since been weaned off and started on oral p.o. Cardizem 4. Coronary artery disease catheterization performed in 2018 demonstratedsingle -vessel coronary artery disease of left circumflex, occluded very small left circumflex with right to left collateral. LV gram EF 75%. Mid LAD 40%, distal LAD 60% mid circumflex occluded with [id number] collateral. Mid RCA less than 30%, right PDA less than 30% 5. Hypertension patient blood pressure low on admission and antihypertensives held 6. Hypothyroidism-patient is on levothyroxine home dose continued 7. Chronic hypoxic respiratory failure patient is on baseline home O2 8. Diabetes mellitus type 2 patient is a long acting insulin dose adjusted also placed on Accu-Cheks before meals and at bedtime covered with sliding scale insulin 9. Dyslipidemia-patient is on statin therapy, continued at home dose 10. Morbid obesity with BMI of 35.6 weight loss advised 11. Obstructive sleep apnea 12. GERD on PPI 13. A 1.1 cm opacity in the periphery of the right lower lobe. Patient informed of the results instructed to follow-up with PCP for repeat CT chest in 3 months. Also follow-up with her generator mechanic Dr. Ramos with [facility] for repeat imaging studies 14. DVT prophylaxis?Lovenox Clinical Impression(s) from Imaging Studies Chest X-Ray 02/07/18 20:03 IMPRESSION: No acute cardiopulmonary abnormalities or changes. There is stable mild diffuse fibrosis. Electronically Signed: Lizette Sutherland MD at 20:54 EDT Tel Direct: [phone], Service support , Chest X-Ray 02/08/18 16:38 IMPRESSION: PICC line placement with tip in distal superior vena cava Electronically Signed: John Chavez MD at 18:15 EDT , Service support , Chest CTA 02/08/18 23:29 IMPRESSION: There is no evidence of pulmonary embolism, aortic aneurysm or aortic dissection. There are mild chronic changes in both lungs, right greater than left. There is no focal consolidation. There is no pleural effusion. Prominent lymph nodes in the mediastinum are likely reactive. The lymph nodes have decreased in size compared to the prior CT. There is a 1.1 cm opacity in the periphery of the right lower lobe. A follow-up CT of the chest is recommended in three months. Electronically Signed: Lizette Sutherland MD at 23:31 EDT Tel Direct: [phone], Service support , Active Medications Albuterol Sulfate (Ventolin Aerosols) 2.5 mg INHALATION Q2H PRN PRN PRN Reason: SHORTNESS OF BREATH Albuterol/Ipratropium (Duoneb) 3 ml INHALATION Q4H.RT [facility] Last Admin: 02/10/18 07:26 Dose: 3 ml Apixaban (Eliquis) 5 mg PO BID [facility] Last Admin: 02/10/18 08:43 Dose: 5 mg Ascorbic Acid (Vitamin C) 500 mg PO DAILY@0800 [facility] Last Admin: 02/09/18 08:48 Dose: 500 mg Aspirin (Aspirin, Baby) 81 mg PO DAILY@0800 [facility] Last Admin: 02/10/18 08:42 Dose: 81 mg Atorvastatin Calcium (Lipitor) 40 mg PO QHS [facility] Last Admin: 02/09/18 22:27 Dose: 40 mg Capsaicin (Zostrix) 1 applic TOPICAL 4X/DAY [facility] Last Admin: 02/10/18 08:45 Dose: Not Given Diltiazem HCl (Cardizem Cd) 180 mg PO DAILY [facility] Last Admin: 02/10/18 08:43 Dose: 180 mg Docusate Sodium (Colace) 100 mg PO DAILY PRN PRN PRN Reason: Constipation Duloxetine HCl (Cymbalta) 60 mg PO DAILY [facility] Last Admin: 02/10/18 08:43 Dose: 60 mg Ferrous Gluconate (Ferrous Gluconate) 325 mg PO DAILY@0800 [facility] Last Admin: 02/10/18 08:42 Dose: 325 mg Fluticasone Propionate (Flonase Nasal [place]) 2 spray NASAL DAILY [facility] Last Admin: 02/10/18 08:44 Dose: 2 spray Furosemide (Lasix) 40 mg PO BIDLX [facility] Last Admin: 02/10/18 08:43 Dose: 40 mg Guaifenesin (Mucinex) 1,200 mg PO BID [facility] Last Admin: 02/10/18 08:44 Dose: 1,200 mg Sodium Chloride () 1,000 mls @ 75 mls/hr IV .[id number] [facility] Last Admin: 02/10/18 03:07 Dose: 75 mls/hr Insulin Glargine (Lantus (Bkc)) 56 units SC BID [facility] Last Admin: 02/10/18 08:45 Dose: 56 unit Insulin Human Lispro (Humalog Kwikpen (Bkc)) 22 unit SC LUNCH [facility] Last Admin: 02/09/18 11:09 Dose: 22 u Insulin Human Lispro (Humalog Kwikpen (Bkc)) 24 unit SC DINNER [facility] Last Admin: 02/09/18 17:14 Dose: 24 u Insulin Human Lispro (Humalog Kwikpen (Bkc)) 14 unit SC BREAKFAST [facility] Last Admin: 02/10/18 09:47 Dose: 14 u Insulin Human Lispro (Humalog Kwikpen (Bkc)) 0 unit SC ACHS [facility] PRN Reason: Protocol Last Admin: 02/10/18 09:47 Dose: 2 units Isosorbide Mononitrate (Imdur) 90 mg PO DAILY [facility] Last Admin: 02/10/18 08:43 Dose: 90 mg Levothyroxine Sodium (Synthroid) 100 mcg PO DAILY@0600 [facility] Last Admin: 02/10/18 06:30 Dose: 100 mcg Magnesium Hydroxide (Milk Of Magnesia) 30 ml PO DAILY PRN PRN Reason: Constipation Methylprednisolone (Solu-Medrol) 40 mg IV Q8 [facility] Last Admin: 02/10/18 06:31 Dose: 40 mg Metoprolol Tartrate (Lopressor (Beta Kaye)) 100 mg PO BID [facility] Last Admin: 02/10/18 08:43 Dose: 100 mg Nutritional Formula (Lactose Free) (Glucerna Shake) 120 ml PO 4X/DAY [facility] Last Admin: 02/10/18 08:43 Dose: 120 ml Pantoprazole Sodium (Protonix) 40 mg PO BID [facility] Last Admin: 02/10/18 08:44 Dose: 40 mg Pregabalin (Lyrica) 100 mg PO TID [facility] Last Admin: 02/10/18 06:30 Dose: 100 mg Promethazine HCl (Phenergan Tablet) 25 mg PO Q6H PRN PRN PRN Reason: NAUSEA Senna (Senokot) 1 tablet PO BID [facility] Last Admin: 02/10/18 08:44 Dose: 1 tablet Sodium Chloride () 5 - 30 ml IV UD PRN PRN Reason: SALINE FLUSH Last Admin: 02/10/18 06:31 Dose: 10 ml Sucralfate (Carafate) 1 gm PO 1HR_ACHS [facility] Last Admin: 02/10/18 06:30 Dose: 1 gm Trimethoprim/Sulfamethoxazole (Bactrim Ds) 1 tablet PO BID [facility] Last Admin: 02/10/18 08:42 Dose: 1 tablet Code Visit Inpatient E&M: 62445 Subs Hosp L2
[2018-02-10] MEDS: Insulin Lispro 100 UNIT/ML INSULN.PEN 22 UNIT SC (11:34)
--- NOTE | 2018-02-10 11:41 | PCM.PN.ID ---
Patient Problems: Active and Suspected Problems Atrial fibrillation with RVR (Acute) Subjective: Feeling better, breathing easier, no rash with bactrim. - Physical Exam General: Alert, Cooperative Lungs: Clear to auscultation Cardiovascular: Irregular Rate Abdomen: Soft, Non Tender, Non-Distended Skin: No rashes Vital Signs Temp Pulse Resp BP Pulse Ox 99.9 F H 92 16 137/77 H 100 02/10/18 08:29 02/10/18 11:00 02/10/18 08:29 02/10/18 08:29 02/10/18 08:29 Oxygen Flow Rate (L/min) 2 Oxygen Delivery Method Nasal Cannula Weight: 97 kg Body Mass Index (BMI) 35.6 Intake and Output for Last 24 Hours 02/08/18 02/09/18 02/10/18 23:59 23:59 23:59 Intake Total 4637.8 / 4637.8 3082 / 3082 460 / 460 Output Total 900 / 900 1999 / 1999 0 / 0 Balance 3737.8 / 3737.8 1082 / 1082 460 / 460 Microbiology Past 72 Hours 02/08/18 21:00 Urine Culture - Preliminary Urine, Clean Catch Culture exhibits no growth. 02/07/18 22:58 Influenza Types A,B Direct FA (JEZ) - Final Mucosa - Nose Laboratory Tests Past 24 Hrs 02/10/18 05:00 Vancomycin Trough 5.2 POC Glucose 02/10/18 02/09/18 02/09/18 06:36 22:34 17:09 POC Glucose 229 H 256 H 271 H Medical Necessity - Tobacco Use Smoking Status: Former smoker Route of nutrition/ use of supplements: [] Nutritional Intake: [] IV Site: [] [place] Catheter: [] - Assessment/Plan Antibiotics: [] Assessment/Plan: [] Active and Suspected Problems Atrial fibrillation with RVR (Acute) COPD exacerbation - Improving. Recent (+) for human metapneumovirus. Sputum with some MRSA, but no focal pneumonia on chest CT. Recent Ucx with ecoli, mild pyuria on UA, but no urinary symptoms. Not clear how much the mrsa or ecoli were contributing to her presentation. No fever, no leukocytosis. Will cover these bacteria with po bactrim DS which she reports tolerating in past with no issue. Stop date planned for 02/14/18. will follow.
[2018-02-10 11:46] LABS: Bedside Glucose 345 mg/dL (70-110)
--- NOTE | 2018-02-10 12:16 | CASEMGMT ---
This TOM ROCHA requested to room by pt regarding HHC. Pt states concern that [facility] supposed to come out to her house on Friday to complete assessment and pt states she was back in here and she forgot to notify them. Advised pt that [facility] is aware and that they will come out again once she is discharged, voices understanding. Pt states no further questions/concerns/needs at this time. SStaten TOM ROCHA
[2018-02-10] MEDS: Insulin Lispro 100 UNIT/ML INSULN.PEN 24 UNIT SC (16:13)
[2018-02-10 16:30] LABS: Bedside Glucose 224 mg/dL (70-110)
[2018-02-10] MEDS: Atorvastatin Calcium 40 MG Tablet PO (21:13)
[2018-02-10 21:40] LABS: Bedside Glucose 273 mg/dL (70-110)
[2018-02-11] VITALS (14 sets, daily range): BP systolic 134–154; BP diastolic 84–90; PULSE 66–88; RESP 12–21; TEMP 36.6–37.1; O2SAT 98–100
[2018-02-11] MEDS: Ipratropium/Albuterol Sulfate 3 ML AMPUL.NEB INHALATION ×3 (06:42→14:59)
[2018-02-11] MEDS: 0.9% Normal Saline 1,000 ML 75 ML IV (06:55)
[2018-02-11] MEDS: Pregabalin 50 MG Capsule 100 MG PO ×2 (06:55→13:11)
[2018-02-11] MEDS: Levothyroxine 100 MCG Tablet PO (06:55)
[2018-02-11] MEDS: Sucralfate 1 GM Tablet PO ×2 (06:55→13:02)
[2018-02-11 07:11] LABS: Bedside Glucose 164 mg/dL (70-110)
[2018-02-11] MEDS: Fluticasone 0.05% 1 SPRAY NASAL.SRY 2 SPRAY NASAL (08:24)
[2018-02-11] MEDS: Insulin Lispro 100 UNIT/ML INSULN.PEN 14 UNIT SC (08:25)
[2018-02-11] MEDS: Insulin Lispro 100 UNIT/ML INSULN.PEN SC ×2 (08:25→13:03)
[2018-02-11] MEDS: Senna Tablet 1 TABLET PO (08:27)
[2018-02-11] MEDS: Metoprolol Tartrate 100 MG Tablet PO (08:27)
[2018-02-11] MEDS: Pantoprazole Sodium 40 MG Tablet PO (08:27)
[2018-02-11] MEDS: guaiFENesin 1,200 MG Tablet 1200 MG PO (08:27)
[2018-02-11] MEDS: APIXABAN 5 MG TABLET PO (08:28)
[2018-02-11] MEDS: Isosorbide Mononitrate 30 MG Tablet 90 MG PO (08:28)
[2018-02-11] MEDS: Ascorbic Acid 500 MG Tablet PO (08:28)
[2018-02-11] MEDS: Furosemide 40 MG Tablet PO (08:28)
[2018-02-11] MEDS: Aspirin 81 MG TAB.CHEW PO (08:28)
[2018-02-11] MEDS: DULoxetine Hcl 60 MG Capsule PO (08:28)
[2018-02-11] MEDS: Smz/Tmp Ds Tablet 1 TABLET PO (08:28)
[2018-02-11] MEDS: Ferrous Gluconate 325 MG Tablet PO (08:28)
[2018-02-11] MEDS: dilTIAZem CD 180 MG Capsule PO (08:29)
[2018-02-11] MEDS: Glucerna Shake 120 ML LIQUID PO (08:29)
[2018-02-11 11:36] LABS: Bedside Glucose 281 mg/dL (70-110)
[2018-02-11] MEDS: Insulin Lispro 100 UNIT/ML INSULN.PEN 22 UNIT SC (13:01)
[2018-02-11 13:57] LABS: Anion Gap 5 (5-15); BUN 18 mg/dL (7-18); BUN/Creat Ratio 23.2 RATIO (10-20); Calcium,Total 8.3 mg/dL (8.5-10.1); Chloride 101 mmol/L (98-107); Creatinine, Serum 0.78 mg/dL (0.55-1.02); EST Glomerular Filtration Rate 80 mL/min (>60); Est Glom Filt Rate - Afr Amer 97 mL/min (>60); Estimated Creatinine Clearance 63.75 ml/min; Glucose 273 mg/dL (74-106); Sodium Level 139 mmol/L (136-145)
--- NOTE | 2018-02-11 14:09 | SLEEP ---
Seen patient about education on sleep apnea and importance of treating sleep apnea. Patient has a known history of sleep apnea but is non compliant and showed no interest in correlating the need for PAP therapy and her current issues. Gave pt brochure with titration sleep study date on it and she verbalized she was aware and will be here.
--- NOTE | 2018-02-11 14:27 | CASEMGMT ---
BLAKE called [facility] and left her a message letting her know patient is being d/c today with [facility] senior living, PT, and OT. BLAKE also called the [employer] coverage line and let Brenna know of d/c as well. Plan: d/c home with resumption of [employer] services as well as [facility] senior living, PT, and OT. Charley ROLAND MSW
--- NOTE | 2018-02-11 14:28 | CASEMGMT ---
Uma from [facility] notified of pt's discharge today, voices understanding. Magui SANTOS CM
--- NOTE | 2018-02-11 14:32 | PCM.DC ---
- Discharge Diagnoses Current Active Problems: Current Active and Chronic Problems Atrial fibrillation with RVR (Acute) You will use the following diet at home:: Calorie/Carbohydrate Controlled (specify 1200, 1400, etc) - 2000 harmeet diet Your food should be the consistency of: Regular Your liquids should be the consistency of: Regular/Thin Discharge Activity: Return to Normal Activity Allergies/Adverse Reactions: Allergies ciprofloxacin [From Cipro] Allergy (Verified 02/07/18 19:42) Hives latex Allergy (Verified 02/07/18 19:42) matos me niacin [From Niaspan Extended-Release] Allergy (Verified 02/07/18 19:42) Hives ondansetron [From Zofran] Allergy (Verified 02/07/18 19:42) Unknown Xanthines Allergy (Verified 02/07/18 19:42) Unknown Penicillins Adverse Reaction (Mild, Verified 02/07/18 19:42) Itching/redness orphenadrine citrate [From Norgesic] Adverse Reaction (Verified 02/07/18 19:42) groggy medical tape Adverse Reaction (Uncoded 02/07/18 19:42) blisters Medications to take at Discharge Albuterol Inhaler [Ventolin Hfa] 2 puff INHALATION Q4H PRN PRN 02/03/18 Apixaban [Eliquis] 2.5 mg PO BID 02/03/18 Ascorbic Acid [Vitamin C] 500 mg PO DAILY@0800 02/03/18 Aspirin [Aspirin, Baby] 81 mg PO DAILY@0800 02/03/18 Atorvastatin Calcium [Lipitor] 40 mg PO QHS 02/03/18 Capsaicin 1 dose TP 4X/DAY 02/03/18 Diltiazem HCl [Cartia Xt] 180 mg PO DAILY 02/03/18 Docusate Sodium [Stool Softener] 100 mg PO DAILY PRN PRN 02/03/18 Duloxetine Hcl [Cymbalta] 60 mg PO DAILY 02/03/18 Estradiol 1 dose VG [id number] 02/03/18 Ferrous Gluconate 325 mg PO DAILY@0800 02/03/18 Fluticasone 0.05% [Flonase Nasal [place]] 2 spray NASAL DAILY 02/03/18 Furosemide [Lasix] 40 mg PO BIDLX 02/03/18 Insulin Glargine,Hum.rec.anlog [Lantus] 56 unit SQ BID 02/03/18 Insulin Lispro [Humalog KwikPen] 22 unit SQ LUNCH 02/03/18 Insulin Lispro [Humalog KwikPen] 24 unit SQ DINNER 02/03/18 Insulin Lispro [Humalog] 14 unit SQ BREAKFAST 02/03/18 Isosorbide Mononitrate [Imdur] 90 mg PO DAILY 02/03/18 Levothyroxine [Synthroid] 100 mcg PO DAILY 02/03/18 Metformin HCl [Metformin HCl ER] 1,000 mg PO BID 02/03/18 Oxycodone HCl [Roxicodone] 5 - 10 mg PO Q4H PRN 02/03/18 Pantoprazole Sodium [Protonix] 40 mg PO BID 02/03/18 Pregabalin [Lyrica] 100 mg PO TID 02/03/18 Sennosides [Claudia-Ramila] 8.6 mg PO BID 02/03/18 Sucralfate [Carafate] 1 gm PO 4X/DAY 02/03/18 proMETHazine tablet [Phenergan tablet] 25 mg PO Q6H PRN PRN 02/03/18 Glucerna Shake 120 ml PO 4X/DAY #100 liquid 02/05/18 Ipratropium/Albuterol Sulfate [Duoneb] 3 ml INHALATION Q4H.RT #100 ampul.neb 02/05/18 Metoprolol Tartrate [Lopressor (beta sudhakar)] 100 mg PO BID #60 tab 02/05/18 Guaifenesin [Mucinex] 1,200 mg PO BID #20 tab 02/11/18 Ipratropium/Albuterol Sulfate [Duoneb] 3 ml INHALATION Q4H.RT ampul.neb 02/11/18 Prednisone 10 mg PO UD #30 tab 02/11/18 Smz/Tmp Ds [Bactrim Ds] 1 tab PO BID #7 tab 02/11/18 The following prescriptions were given: Prednisone 10 mg PO UD #30 tab Guaifenesin [Mucinex] 1,200 mg PO BID #20 tab Smz/Tmp Ds [Bactrim Ds] 1 tab PO BID #7 tab Primary Care Physician: Bhupendra Oliveira MD [Primary Care Provider] - Please follow up with your Primary Care Physician in: 5 to 7 days.
--- NOTE | 2018-02-11 14:41 | PCM.DC.SUM ---
Discharge Date and Diagnosis - Problem List Patient Problems: Active and Suspected Problems Atrial fibrillation with RVR (Acute) Date of Admission: 02/07/18 Date of Discharge: 02/11/18 - Primary Discharge Diagnosis Active and Suspected Problems Acute on chronic combined hypoxic and hypercapnic respiratory failure. COPD exacerbation. Atrial fibrillation with rapid ventricular response. - Secondary Discharge Diagnosis Chronic Problems Diabetes mellitus type 2 in obese (Chronic) Coronary arteriosclerosis (Chronic) cath 05/2015 mild-moderate disease medical therapy recommended Hypothyroidism (Chronic) Hyperlipemia (Chronic) GERD (gastroesophageal reflux disease) (Chronic) Hypertension (Chronic) COPD (chronic obstructive pulmonary disease) (Chronic) Chronic respiratory insufficiency (Chronic) On home oxygen at night S/P PTCA (percutaneous transluminal coronary angioplasty) (Chronic) PARESH (obstructive sleep apnea) (Chronic) Hospital Course and Treatment Imaging Results: Diagnostic Data Chest X-Ray 02/08/18 16:38 IMPRESSION: PICC line placement with tip in distal superior vena cava Electronically Signed: John Chavez MD at 18:15 EDT , Service support , Chest CTA 02/08/18 23:29 IMPRESSION: There is no evidence of pulmonary embolism, aortic aneurysm or aortic dissection. There are mild chronic changes in both lungs, right greater than left. There is no focal consolidation. There is no pleural effusion. Prominent lymph nodes in the mediastinum are likely reactive. The lymph nodes have decreased in size compared to the prior CT. There is a 1.1 cm opacity in the periphery of the right lower lobe. A follow-up CT of the chest is recommended in three months. Electronically Signed: Lizette Sutherland MD at 23:31 EDT Tel Direct: [phone], Service support , Sql Programmer: JULIENNE Ruiz. Operations: None Procedures: None Summary of Care Provided: Patient is a 63-year-old lady admitted with progressive shortness of breath. An acute hypoxic and hypercapnic respiratory failure made, admitted to a monitored bed for subsequent management. She was started on systemic corticosteroid. Empiric vancomycin and Zosyn were started based on previous culture result showing MRSA. She was also found to have positive UA, although she was vastly asymptomatic. Initially, she was on BiPAP for respiratory failure, changed to nocturnal use only. Overall, she was doing well. She has home care and home aids set up already. ID had recommended abx regimen with Bactrim DS until 02/14. Continue prednisone tapering dose. Plan to discharge and follow up as outpatient. 1. Acute hypoxic and hypercapnic respiratory failure secondary COPD exacerbation with MRSA respiratory infection possibly with pneumonia, given patient recent culture results: She was placed on noninvasive ventilationBiPAP on admission and started on abx combination of vancomycin and Zosyn. 2. Recurrent UTI with E. coli Rocephin cultures during this current hospital stay came back negative; Rocephin discontinued. Continue Bactrim, which covers E. Coli. 3. Paroxysmal A. fib with RVR patient was started on Cardizem drip which has since been weaned off and started back on oral p.o. Cardizem 4. Coronary artery disease catheterization performed in 2018 demonstrated single-vessel coronary artery disease of left circumflex, occluded very small left circumflex with right to left collateral. LV gram EF 75%. Mid LAD 40%, distal LAD 60% mid circumflex occluded with [id number] collateral. Mid RCA less than 30%, right PDA less than 30% 5. Hypertension patient blood pressure low on admission and antihypertensives held 6. Hypothyroidism-patient is on levothyroxine home dose continued 7. Chronic hypoxic respiratory failure patient is on baseline home O2 8. Diabetes mellitus type 2 patient is a long acting insulin dose adjusted also placed on Accu-Cheks before meals and at bedtime covered with sliding scale insulin 9. Dyslipidemia-patient is on statin therapy, continued at home dose 10. Morbid obesity with BMI of 35.6 weight loss advised 11. Obstructive sleep apnea 12. GERD on PPI 13. A 1.1 cm opacity in the periphery of the right lower lobe. Patient informed of the results instructed to follow-up with PCP for repeat CT chest in 3 months. Also follow-up with her design engineer agricultural equipment Dr. Ramos with [facility] for repeat imaging studies 14. hypokalemia. Low potassium was corrected. K+ 4.0 at the time of discharge. Discharge Activity: Return to Normal Activity Home Medications: Medications to take at Discharge Albuterol Inhaler [Ventolin Hfa] 2 puff INHALATION Q4H PRN PRN 02/03/18 Apixaban [Eliquis] 2.5 mg PO BID 02/03/18 Ascorbic Acid [Vitamin C] 500 mg PO DAILY@0800 02/03/18 Aspirin [Aspirin, Baby] 81 mg PO DAILY@0800 02/03/18 Atorvastatin Calcium [Lipitor] 40 mg PO QHS 02/03/18 Capsaicin 1 dose TP 4X/DAY 02/03/18 Diltiazem HCl [Cartia Xt] 180 mg PO DAILY 02/03/18 Docusate Sodium [Stool Softener] 100 mg PO DAILY PRN PRN 02/03/18 Duloxetine Hcl [Cymbalta] 60 mg PO DAILY 02/03/18 Estradiol 1 dose VG MOWEFR 02/03/18 Ferrous Gluconate 325 mg PO DAILY@0800 02/03/18 Fluticasone 0.05% [Flonase Nasal [place]] 2 spray NASAL DAILY 02/03/18 Furosemide [Lasix] 40 mg PO BIDLX 02/03/18 Insulin Glargine,Hum.rec.anlog [Lantus] 56 unit SQ BID 02/03/18 Insulin Lispro [Humalog KwikPen] 22 unit SQ LUNCH 02/03/18 Insulin Lispro [Humalog KwikPen] 24 unit SQ DINNER 02/03/18 Insulin Lispro [Humalog] 14 unit SQ BREAKFAST 02/03/18 Isosorbide Mononitrate [Imdur] 90 mg PO DAILY 02/03/18 Levothyroxine [Synthroid] 100 mcg PO DAILY 02/03/18 Metformin HCl [Metformin HCl ER] 1,000 mg PO BID 02/03/18 Oxycodone HCl [Roxicodone] 5 - 10 mg PO Q4H PRN 02/03/18 Pantoprazole Sodium [Protonix] 40 mg PO BID 02/03/18 Pregabalin [Lyrica] 100 mg PO TID 02/03/18 Sennosides [Claudia-Ramila] 8.6 mg PO BID 02/03/18 Sucralfate [Carafate] 1 gm PO 4X/DAY 02/03/18 proMETHazine tablet [Phenergan tablet] 25 mg PO Q6H PRN PRN 02/03/18 Glucerna Shake 120 ml PO 4X/DAY #100 liquid 02/05/18 Ipratropium/Albuterol Sulfate [Duoneb] 3 ml INHALATION Q4H.RT #100 ampul.neb 02/05/18 Metoprolol Tartrate [Lopressor (beta sudhakar)] 100 mg PO BID #60 tab 02/05/18 Guaifenesin [Mucinex] 1,200 mg PO BID #20 tab 02/11/18 Ipratropium/Albuterol Sulfate [Duoneb] 3 ml INHALATION Q4H.RT ampul.neb 02/11/18 Prednisone 10 mg PO UD #30 tab 02/11/18 Smz/Tmp Ds [Bactrim Ds] 1 tab PO BID #7 tab 02/11/18 Following Prescrptions Were Given to Patient: Prednisone 10 mg PO UD #30 tab Guaifenesin [Mucinex] 1,200 mg PO BID #20 tab Smz/Tmp Ds [Bactrim Ds] 1 tab PO BID #7 tab Primary Care Physician: Bhupendra Oliveira MD [Primary Care Provider] - Please follow up with your Primary Care Physician in: 5 to 7 days. Disposition: Home with Home Health Patient Condition:: Stable Medical Necessity - Tobacco Use Smoking Status: Former smoker Meaningful Use Info Meaningful Use Diagnoses (Choose all that apply): None applicable Code Visit Inpatient E&M: 14136 Disch Hosp
--- NOTE | 2018-02-11 14:53 | DS.PCM_ITS ---
Discharge Date and Diagnosis - Problem List Patient Problems: Active and Suspected Problems Atrial fibrillation with RVR (Acute) Date of Admission: 02/07/18 Date of Discharge: 02/11/18 - Primary Discharge Diagnosis Active and Suspected Problems Acute on chronic combined hypoxic and hypercapnic respiratory failure. COPD exacerbation. Atrial fibrillation with rapid ventricular response. - Secondary Discharge Diagnosis Chronic Problems Diabetes mellitus type 2 in obese (Chronic) Coronary arteriosclerosis (Chronic) cath 05/2015 mild-moderate disease medical therapy recommended Hypothyroidism (Chronic) Hyperlipemia (Chronic) GERD (gastroesophageal reflux disease) (Chronic) Hypertension (Chronic) COPD (chronic obstructive pulmonary disease) (Chronic) Chronic respiratory insufficiency (Chronic) On home oxygen at night S/P PTCA (percutaneous transluminal coronary angioplasty) (Chronic) PARESH (obstructive sleep apnea) (Chronic) Hospital Course and Treatment Imaging Results: Diagnostic Data Chest X-Ray 02/08/18 16:38 IMPRESSION: PICC line placement with tip in distal superior vena cava Electronically Signed: John Chavez MD at 18:15 EDT , Service support , Chest CTA 02/08/18 23:29 IMPRESSION: There is no evidence of pulmonary embolism, aortic aneurysm or aortic dissection. There are mild chronic changes in both lungs, right greater than left. There is no focal consolidation. There is no pleural effusion. Prominent lymph nodes in the mediastinum are likely reactive. The lymph nodes have decreased in size compared to the prior CT. There is a 1.1 cm opacity in the periphery of the right lower lobe. A follow-up CT of the chest is recommended in three months. Electronically Signed: Lizette Sutherland MD at 23:31 EDT Tel Direct: [phone], Service support , Warehouse Team Member: JULIENNE Ruiz. Operations: None Procedures: None Summary of Care Provided: Patient is a 63-year-old lady admitted with progressive shortness of breath. An acute hypoxic and hypercapnic respiratory failure made, admitted to a monitored bed for subsequent management. She was started on systemic corticosteroid. Empiric vancomycin and Zosyn were started based on previous culture result showing MRSA. She was also found to have positive UA, although she was vastly asymptomatic. Initially, she was on BiPAP for respiratory failure, changed to nocturnal use only. Overall, she was doing well. She has home care and home aids set up already. ID had recommended abx regimen with Bactrim DS until 02/14. Continue prednisone tapering dose. Plan to discharge and follow up as outpatient. 1. Acute hypoxic and hypercapnic respiratory failure secondary COPD exacerbation with MRSA respiratory infection possibly with pneumonia, given patient recent culture results: She was placed on noninvasive ventilation? BiPAP on admission and started on abx combination of vancomycin and Zosyn. 2. Recurrent UTI with E. coli Rocephin cultures during this current hospital stay came back negative; Rocephin discontinued. Continue Bactrim, which covers E. Coli. 3. Paroxysmal A. fib with RVR patient was started on Cardizem drip which has since been weaned off and started back on oral p.o. Cardizem 4. Coronary artery disease catheterization performed in 2018 demonstrated single-vessel coronary artery disease of left circumflex, occluded very small left circumflex with right to left collateral. LV gram EF 75%. Mid LAD 40%, distal LAD 60% mid circumflex occluded with [id number] collateral. Mid RCA less than 30%, right PDA less than 30% 5. Hypertension patient blood pressure low on admission and antihypertensives held 6. Hypothyroidism-patient is on levothyroxine home dose continued 7. Chronic hypoxic respiratory failure patient is on baseline home O2 8. Diabetes mellitus type 2 patient is a long acting insulin dose adjusted also placed on Accu-Cheks before meals and at bedtime covered with sliding scale insulin 9. Dyslipidemia-patient is on statin therapy, continued at home dose 10. Morbid obesity with BMI of 35.6 weight loss advised 11. Obstructive sleep apnea 12. GERD on PPI 13. A 1.1 cm opacity in the periphery of the right lower lobe. Patient informed of the results instructed to follow-up with PCP for repeat CT chest in 3 months. Also follow-up with her direct service professional Dr. Ramos with [facility] for repeat imaging studies 14. hypokalemia. Low potassium was corrected. K+ 4.0 at the time of discharge. Discharge Activity: Return to Normal Activity Home Medications: Medications to take at Discharge Albuterol Inhaler [Ventolin Hfa] 2 puff INHALATION Q4H PRN PRN 02/03/18 Apixaban [Eliquis] 2.5 mg PO BID 02/03/18 Ascorbic Acid [Vitamin C] 500 mg PO DAILY@0800 02/03/18 Aspirin [Aspirin, Baby] 81 mg PO DAILY@0800 02/03/18 Atorvastatin Calcium [Lipitor] 40 mg PO QHS 02/03/18 Capsaicin 1 dose TP 4X/DAY 02/03/18 Diltiazem HCl [Cartia Xt] 180 mg PO DAILY 02/03/18 Docusate Sodium [Stool Softener] 100 mg PO DAILY PRN PRN 02/03/18 Duloxetine Hcl [Cymbalta] 60 mg PO DAILY 02/03/18 Estradiol 1 dose VG MOWEFR 02/03/18 Ferrous Gluconate 325 mg PO DAILY@0800 02/03/18 Fluticasone 0.05% [Flonase Nasal [place]] 2 spray NASAL DAILY 02/03/18 Furosemide [Lasix] 40 mg PO BIDLX 02/03/18 Insulin Glargine,Hum.rec.anlog [Lantus] 56 unit SQ BID 02/03/18 Insulin Lispro [Humalog KwikPen] 22 unit SQ LUNCH 02/03/18 Insulin Lispro [Humalog KwikPen] 24 unit SQ DINNER 02/03/18 Insulin Lispro [Humalog] 14 unit SQ BREAKFAST 02/03/18 Isosorbide Mononitrate [Imdur] 90 mg PO DAILY 02/03/18 Levothyroxine [Synthroid] 100 mcg PO DAILY 02/03/18 Metformin HCl [Metformin HCl ER] 1,000 mg PO BID 02/03/18 Oxycodone HCl [Roxicodone] 5 - 10 mg PO Q4H PRN 02/03/18 Pantoprazole Sodium [Protonix] 40 mg PO BID 02/03/18 Pregabalin [Lyrica] 100 mg PO TID 02/03/18 Sennosides [Claudia-Ramila] 8.6 mg PO BID 02/03/18 Sucralfate [Carafate] 1 gm PO 4X/DAY 02/03/18 proMETHazine tablet [Phenergan tablet] 25 mg PO Q6H PRN PRN 02/03/18 Glucerna Shake 120 ml PO 4X/DAY #100 liquid 02/05/18 Ipratropium/Albuterol Sulfate [Duoneb] 3 ml INHALATION Q4H.RT #100 ampul.neb Metoprolol Tartrate [Lopressor (beta sudhakar)] 100 mg PO BID #60 tab 02/05/18 Guaifenesin [Mucinex] 1,200 mg PO BID #20 tab 02/11/18 Ipratropium/Albuterol Sulfate [Duoneb] 3 ml INHALATION Q4H.RT ampul.neb Prednisone 10 mg PO UD #30 tab 02/11/18 Smz/Tmp Ds [Bactrim Ds] 1 tab PO BID #7 tab 02/11/18 Following Prescrptions Were Given to Patient: Prednisone 10 mg PO UD #30 tab Guaifenesin [Mucinex] 1,200 mg PO BID #20 tab Smz/Tmp Ds [Bactrim Ds] 1 tab PO BID #7 tab Primary Care Physician: Bhupendra Oliveira MD [Primary Care Provider] - Please follow up with your Primary Care Physician in: 5 to 7 days. Disposition: Home with Home Health Patient Condition:: Stable Medical Necessity - Tobacco Use Smoking Status: Former smoker Meaningful Use Info Meaningful Use Diagnoses (Choose all that apply): None applicable Code Visit Inpatient E&M: 49159 Disch Hosp
--- NOTE | 2018-02-12 16:05 | CASEMGMT ---
TOM ROCHA Discharge F/U phone call LACE: 14 STRATA: 4 Call Date: 02/12/18 Discharge Date: 02/11/18 Time of Call: 1555 Duration: 12 minutes Adm Dx: COPD exac/Afib RVR Pt states has been doing 'fine' since discharge. Pt states that [facility] nurse was out to see her and helped her get all meds organized. Pt states no concerns regarding d/c instructions or medications at this time. Pt states that 'they all took pretty darn good care of me while I was there.' Pt does state that she feels that her 'discharge was rushed' on her 1st visit and then pt returned within a day. Pt states that 'everyone took great care of me.' Pt states she plans on keeping f/u appt with Dr. Oliveira on 02/18 and that PT/OT are also supposed to come out to evaluate pt. Pt states that she feels she needs an aide also and that she spoke with [facility] nurse regarding same. Pt does already have [employer] services but states that the agency does not have enough staff to cover all the hours that pt has been granted. Pt states no further questions/concerns/needs at this time. S[place]en TOM ROCHA
--- NOTE | 2018-02-13 09:22 | CASEMGMT ---
Per Uma [facility] Nurse, pt had not received bactrim and prednisone from [facility] yet as of [facility] visit yesterday. Call to [facility] and per michelle, pt did not notify them that she had been discharged and so they did not deliver immediately. [facility] did state that meds were delivered yesterday afternoon. [facility] aware at this time, voices understanding. Magui SANTOS CM
== END 2018-02-11 18:09 | disposition home health service (06) | DRG 177 ==
LOC: ED 20:19 → PCU 21:50
PROVIDERS: Internal Medicine; Admitting Provider Internal Medicine; Emergency Provider Emergency Medicine; Family Provider Family Medicine; PCP Family Medicine; Visit Provider Hospitalist
DX: J15.212 Pneumonia due to Methicillin resistant Staphylococcus aureus (principal); J96.21 Acute and chronic respiratory failure with hypoxia; J96.22 Acute and chronic respiratory failure with hypercapnia; J44.0 Chronic obstructive pulmonary disease with (acute) lower respiratory infection; N39.0 Urinary tract infection, site not specified; J44.1 Chronic obstructive pulmonary disease with (acute) exacerbation; B96.20 Unspecified Escherichia coli [E. coli] as the cause of diseases classified elsewhere; I48.0 Paroxysmal atrial fibrillation; I49.3 Ventricular premature depolarization; E87.6 Hypokalemia; I25.10 Atherosclerotic heart disease of native coronary artery without angina pectoris; I11.0 Hypertensive heart disease with heart failure; I50.9 Heart failure, unspecified; E11.9 Type 2 diabetes mellitus without complications; E78.5 Hyperlipidemia, unspecified; E03.9 Hypothyroidism, unspecified; G47.33 Obstructive sleep apnea (adult) (pediatric); K21.9 Gastro-esophageal reflux disease without esophagitis; E66.01 Morbid (severe) obesity due to excess calories; Z68.35 Body mass index [BMI] 35.0-35.9, adult; Z79.4 Long term (current) use of insulin; Z79.01 Long term (current) use of anticoagulants; Z79.82 Long term (current) use of aspirin; Z99.81 Dependence on supplemental oxygen; Z79.899 Other long term (current) drug therapy; I25.2 Old myocardial infarction; Z86.711 Personal history of pulmonary embolism; Z86.718 Personal history of other venous thrombosis and embolism; Z87.891 Personal history of nicotine dependence; Z95.5 Presence of coronary angioplasty implant and graft; Z87.01 Personal history of pneumonia (recurrent)
CPT/HCPCS: 36415; 36569; 36600; 71045; 71275; 80048; 80061; 80202; 81001; 82803; 82962; 83880; 84443; 84484; 85025; 85027; 85379; 85610; 87086; 87804; 93005; 94002; 94003; 94640; 97110; 97116; 97162; 97165; 97530; 97803; 99285; J7030; J7050; Q9967; A4216

== ENCOUNTER 2018-04-04 15:32 | Inpatient (IN) | payer MEDICARE, SELFPAY ==
[2018-04-04] VITALS (12 sets, daily range): BP systolic 97–111; BP diastolic 57–72; PULSE 57–80; RESP 12–21; TEMP 36.7–36.8; O2SAT 92–99; BMI 39.5; BMI 40.0; BMI 40.1
--- NOTE | 2018-04-04 15:36 | CT_ITS ---
STUDY: CT BRAIN WITHOUT CONTRAST REASON FOR EXAM: Female, 63 years old. Altered mental status. Hypoglycemia and history of CVA. RADIATION DOSAGE (If Supplied By Facility): CTDIvol = ( 44.99 ) mGy, DLP = ( 745.49 ) mGycm TECHNIQUE: Transaxial CT imaging of the brain was performed without administration of intravenous contrast material. Multiplanar reformations are submitted for interpretation. Individualized dose optimization techniques were used for this CT. COMPARISON: CT of the head dated January 02, 2018. FINDINGS: Normal soft tissue structures. Normal calvarium. There is mild cerebral atrophy with widening of the extra-axial spaces and ventricular dilatation. There are areas of decreased attenuation within the white matter tracts of the supratentorial brain, consistent with microvascular disease changes. Small lucency is visible in the left thalamus possibly related to old infarct. The basal ganglia have a normal appearance. Normal brainstem. There is mild cerebellar atrophy. There is no intracranial hemorrhage. There is mild atherosclerotic calcification of intracranial arteries. There is mucoperiosteal inflammatory disease of the paranasal sinuses consistent with mild chronic sinusitis. There appears to be a defect within the nasal septum. This may be the result of previous surgery. CT/Brain/Head without Contrast IMPRESSION: 1. Chronic involutional changes of the brain. 2. No CT evidence of acute intracranial hemorrhage. Electronically Signed: Jelly Davis MD at 16:56 EDT , Service support ,
--- NOTE | 2018-04-04 15:36 | EKG12_ITS ---
Test Reason : SOB Blood Pressure : / mmHG Vent. Rate : 064 BPM Atrial Rate : 061 BPM P-R Int : 000 ms QRS Dur : 080 ms QT Int : 452 ms P-R-T Axes : 000 -12 095 degrees QTc Int : 466 ms Atrial fibrillation Abnormal ECG Confirmed by ALETA ABRAHAM, ALVAREZ ([id number]), editorial project manager SHYANNE TERRAZAS ([id number]) on 04/07/2018 1:44:58 PM Referred By: NICA Confirmed By:ALVAREZ RIVER MD
--- NOTE | 2018-04-04 15:40 | ED.VISSUMM ---
- ER Visit Summary Date of Service: 04/04/18 Chief Complaint: Unresponsive History of Present Illness: The patient is a 63 F who was unresponsive. EMS was called and her blood sugar was 50. They gave intramuscular glucagon without any significant change in her mental status. Family states that she has been sleeping most of the day. She does have a history of hypoglycemia in the past and has been admitted for this. She does have a history of atrial fibrillation on Eliquis. Family does not know of any recent falls. Physical Examination: Vital signs reviewed. Well-developed female who was not responsive to voice. HEENT exam reveals her left pupil was 3 mm in her right pupil is 2 mm. They are both equally reactive. Heart is regular rate and rhythm. Lungs are clear bilaterally. Abdomen is soft with nondistention. Extremities show no edema. She has no rashes. Her neurologic exam reveals that she is lethargic. She barely opens her eyes with any voice response. She is responsive to pain with sternal rub. Her GCS is 8. Test Results: EKG is atrial fibrillation with rate 64. Checks x-ray reveals chronic changes. CAT scan of the head reveals chronic changes. Hemoglobin 11.9. Sodium 147. Tox, alcohol, troponin, BNP normal. ABG is 7.3 // Emergency Department Course and Treatment: The patient was given D50 upon her arrival without any significant change. It did raise her blood sugar but her mental status was the same. I am unclear the etiology of her delirium. I doubt that the blood sugar has anything to do with it. Since she is not back to her baseline I feel she should be admitted to the hospital for further testing Treatment Plan: [] Disposition: Admit Impression: Hypoglycemia, delirium This note was generated with Tripeese dictation software. It may contain incorrect words, spelling, and punctuation that were not noted in review of the chart prior to signing ED Disposition - Plan for ED Patient: Chief Complaint: Hypoglycemia Referrals: Bhupendra Oliveira MD [Primary Care Provider] -
[2018-04-04 15:41] LABS: Bedside Glucose 85 mg/dL (70-110)
[2018-04-04] MEDS: Dextrose 50%-Water 25 GM/50 ML DISP.SYRIN IV ×2 (15:46→20:17)
[2018-04-04 15:58] LABS: Absolute Lymphocyte Count 1.44 X10^3/ul (0.83-4.51); Absolute Neutrophil Count 4.6 X10^3/uL (2.0-7.7); Basophil# 0.03 X10^3/uL; Basophil% 0.4 % (0-1); Eosinophil# 0.38 X10^3/uL; Eosinophils% 5.4 % (0-5); Hematocrit 38.7 % (37-47); Hemoglobin 11.9 g/dl (12.0-15.0); Lymphocyte # 1.44 X10^3/ul (4.0); Lymphocyte % 20.4 % (19-41); Mean Corp Hgb Conc 30.7 g/gl (32-36); Mean Corpuscular Hgb 30.3 pg (27.0-32.0); Mean Corpuscular Volume 98.5 fL (81-99); Mean Platelet Vol. 10.5 fl (6.2-12.0); Monocyte# 0.65 X10^3/uL; Monocyte% 9.2 % (0-10); Neutrophil # 4.55 X10^3/uL (2.7-7.7); Neutrophil % 64.3 % (47-70); Platelet Count 176 K/mm3 (150-450); RBC Distribution Width SD 59.8 fl (35.1-43.9); Red Blood Count 3.93 M/mm3 (4.2-5.4); White Blood Count 7.1 K/mm3 (4.4-11.0)
[2018-04-04 16:00] LABS: POSITIVE COUNT NO; POSITIVE DIFFERENTIAL NO; POSITIVE MORPHOLOGY NO
--- NOTE | 2018-04-04 16:05 | RAD_ITS ---
STUDY: X-RAY CHEST REASON FOR EXAM: Female, 63 years old. Cough. TECHNIQUE: Two AP portable views of the chest. COMPARISON: CT of the chest dated February 08, 2018. FINDINGS: Cardiac monitoring leads are present. The lungs are expanded with mild prominence of bronchovascular markings. There is no demonstrated pleural abnormality. There is moderate cardiac enlargement. Normal mediastinum and tracie. There is prominence of the pulmonary hilar arteries with peripheral pulmonary vascular congestion. There is atherosclerotic calcification of the aortic arch with tortuosity. There are diffuse degenerative changes of the visualized thoracic spine. Normal visualized ribs, clavicles, and shoulders. There is no demonstrated abnormality of the visualized soft tissue structures of the upper abdomen. RAD/Chest 1 View (Portable) IMPRESSION: Cardiomegaly and mild pulmonary congestion. Electronically Signed: Jelly Davis MD at 17:01 EDT , Service support ,
[2018-04-04 16:11] LABS: Allen Test POS; Base Excess 9 mmol/L (-2 to +2); Bicarbonate 34.1 mmol/L (22-26); Blood Gas Specimen Type ART; O2 Delivery Device Nasal Can; PO2 87 mmHG (75-100); SITE L Radial; SO2 96 % (95-99); Time Given 1557; Total Carbon Dioxide 36 mmol/L; pCO2 61.3 mmHg (35-45); pH 7.35 (7.35-7.45)
[2018-04-04 16:12] LABS: ALB/GLOB Ratio 0.8 RATIO (0.9-2.4); AST(SGOT) 13 U/L (15-37); Alanine Aminotransfer ALT/SGPT 13 U/L (13-56); Albumin, Serum 3.2 g/dL (3.2-5.0); Alkaline Phosphatase 45 U/L (45-117); Anion Gap 5 (5-15); BUN 12 mg/dL (7-18); BUN/Creat Ratio 17.2 RATIO (10-20); Calcium,Total 8.3 mg/dL (8.5-10.1); Chloride 106 mmol/L (98-107); EST Glomerular Filtration Rate 90 mL/min (>60); Est Glom Filt Rate - Afr Amer 109 mL/min (>60); Estimated Creatinine Clearance 68.05 ml/min; Globulin 4.1 g/dL (2.2-4.2); Glucose 70 mg/dL (74-106); Potassium 3.5 mmol/L (3.5-5.1); Protein, Total 7.3 g/dL (6.4-8.2); Sodium Level 147 mmol/L (136-145)
[2018-04-04 16:30] LABS: Lactic Acid 1.3 mmol/L (0.4-2.0)
[2018-04-04 16:40] LABS: Bacteria 0 SEEN /hpf (None Seen); Mucous, Urine 0 SEEN /hpf (<or=2+); Red Blood Cells-Urine 0 SEEN /hpf (0-5); Squamous Epithelial Cells - UA 0 SEEN /hpf (5-10)
[2018-04-04 16:58] LABS: Color, Urine Yellow (Yellow); Glucose, Dipstick Normal (Normal); Ketone-Dipstick Negative (Negative); Leukocyte Esterase-Dipstick 25 /ul (Negative); Nitrite-Dipstick Negative (Negative); Occult Blood-Urine Negative /ul (Negative); Protein-Dipstick Negative (Negative); Specific Gravity, Urine 1.015 (1.002-1.030); Urine Bilirubin Dipstick Negative (Negative); Urine Clarity Clear (Clear); Urine Urobilinogen Normal (Normal)
[2018-04-04 17:02] LABS: White Blood Cells 0-5 SEEN /hpf (0-5)
[2018-04-04 17:07] LABS: Amphetamine Urine VISTA NEGATIVE (<1000 ng/mL); Barbiturate Urine VISTA NEGATIVE (< 200 ng/mL); Benzodiazepine Urine VISTA NEGATIVE (< 200 ng/mL); Cocaine Urine VISTA NEGATIVE (< 300 ng/mL); Ecstacy Urine VISTA NEGATIVE (< 500 ng/mL); Methadone Urine VISTA NEGATIVE (< 300 ng/mL); PCP Urine VISTA NEGATIVE (< 25 ng/mL); THC Urine VISTA NEGATIVE (< 50 ng/mL); Vista UDS pH Range 5
--- NOTE | 2018-04-04 17:24 | PCM.HP.STD ---
Problem List (1) GERD (gastroesophageal reflux disease) Status: Chronic Qualifiers: Esophagitis presence: esophagitis presence not specified Qualified Code(s): K21.9 - Gastro-esophageal reflux disease without esophagitis (2) Hyperlipemia Status: Chronic Qualifiers: Hyperlipidemia type: unspecified Qualified Code(s): E78.5 - Hyperlipidemia, unspecified (3) Hypertension Status: Chronic Qualifiers: Hypertension type: essential hypertension Qualified Code(s): I10 - Essential (primary) hypertension (4) Hypothyroidism Status: Chronic Qualifiers: Hypothyroidism type: unspecified Qualified Code(s): E03.9 - Hypothyroidism, unspecified (5) PARESH (obstructive sleep apnea) Status: Chronic (6) S/P PTCA (percutaneous transluminal coronary angioplasty) Status: Chronic (7) Acute hypoglycemia Status: Acute History of Present Illness Date of Admission: 04/04/18 Chief Complaint: Altered mental status 63 year old F with multiple comorbidities including type 2 DM, hypertension, chronic respiratory failure secondary to COPD, PARESH on BiPAP,chronic atrial fibrillation who was brought in by the EMS squad with complaints of difficulty to arouse. History was taken from his son who lives close by and comes in to visit every day. He saw his mother around 12 noon and she was sleeping in a chair. Apparently been up since 9 AM was still sleeping in the chair. The other son found her a couple of hours later still sleepy and difficult to arouse. He called the EMS, blood sugar was 50 and she was treated. Blood sugar on arrival to the ED was 85. Further questioning shows that patient does not be using his BiPAP at home, according to the son, she had it at home on trial basis. Past Medical History Past Medical History (Chronic Problems): Chronic Problems Diabetes mellitus type 2 in obese (Chronic) Coronary arteriosclerosis (Chronic) cath 05/2015 mild-moderate disease medical therapy recommended Hypothyroidism (Chronic) Hyperlipemia (Chronic) GERD (gastroesophageal reflux disease) (Chronic) Hypertension (Chronic) COPD (chronic obstructive pulmonary disease) (Chronic) Chronic respiratory insufficiency (Chronic) On home oxygen at night S/P PTCA (percutaneous transluminal coronary angioplasty) (Chronic) PARESH (obstructive sleep apnea) (Chronic) Allergies ciprofloxacin [From Cipro] Allergy (Verified 02/07/18 19:42) Hives latex Allergy (Verified 02/07/18 19:42) matos me niacin [From Niaspan Extended-Release] Allergy (Verified 02/07/18 19:42) Hives ondansetron [From Zofran] Allergy (Verified 02/07/18 19:42) Unknown Xanthines Allergy (Verified 02/07/18 19:42) Unknown Penicillins Adverse Reaction (Mild, Verified 02/07/18 19:42) Itching/redness orphenadrine citrate [From Norgesic] Adverse Reaction (Verified 02/07/18 19:42) groggy medical tape Adverse Reaction (Uncoded 02/07/18 19:42) blisters Home Medications: Ambulatory Orders Medication Instructions Recorded Albuterol Inhaler [Ventolin Hfa] 2 puff INHALATION Q4H PRN PRN 02/03/18 Apixaban [Eliquis] 2.5 mg PO BID 02/03/18 Ascorbic Acid [Vitamin C] 500 mg PO DAILY@0800 02/03/18 Aspirin [Aspirin, Baby] 81 mg PO DAILY@0800 02/03/18 Atorvastatin Calcium [Lipitor] 40 mg PO QHS 02/03/18 Capsaicin 1 dose TP 4X/DAY 02/03/18 Diltiazem HCl [Cartia Xt] 180 mg PO DAILY 02/03/18 Docusate Sodium [Stool Softener] 100 mg PO DAILY PRN PRN 02/03/18 Duloxetine Hcl [Cymbalta] 60 mg PO DAILY 02/03/18 Estradiol 1 dose VG MOWEFR 02/03/18 Ferrous Gluconate 325 mg PO DAILY@0800 02/03/18 Fluticasone 0.05% [Flonase Nasal 2 spray NASAL DAILY 02/03/18 Artemas] Furosemide [Lasix] 40 mg PO BIDLX 02/03/18 Insulin Glargine,Hum.rec.anlog 56 unit SQ BID 02/03/18 [Lantus] Insulin Lispro [Humalog KwikPen] 22 unit SQ LUNCH 02/03/18 Insulin Lispro [Humalog KwikPen] 24 unit SQ DINNER 02/03/18 Insulin Lispro [Humalog] 14 unit SQ BREAKFAST 02/03/18 Isosorbide Mononitrate [Imdur] 90 mg PO DAILY 02/03/18 Levothyroxine [Synthroid] 100 mcg PO DAILY 02/03/18 Metformin HCl [Metformin HCl ER] 1,000 mg PO BID 02/03/18 Oxycodone HCl [Roxicodone] 5 - 10 mg PO Q4H PRN 02/03/18 Pantoprazole Sodium [Protonix] 40 mg PO BID 02/03/18 Pregabalin [Lyrica] 100 mg PO TID 02/03/18 Sennosides [Claudia-Ramila] 8.6 mg PO BID 02/03/18 Sucralfate [Carafate] 1 gm PO 4X/DAY 02/03/18 proMETHazine tablet [Phenergan 25 mg PO Q6H PRN PRN 02/03/18 tablet] Glucerna Shake 120 ml PO 4X/DAY #100 liquid 02/05/18 Ipratropium/Albuterol Sulfate 3 ml INHALATION Q4H.RT #100 02/05/18 [Duoneb] ampul.neb Metoprolol Tartrate [Lopressor 100 mg PO BID #60 tab 02/05/18 (beta sudhakar)] Guaifenesin [Mucinex] 1,200 mg PO BID #20 tab 02/11/18 Ipratropium/Albuterol Sulfate 3 ml INHALATION Q4H.RT ampul.neb 02/11/18 [Duoneb] Prednisone 10 mg PO UD #30 tab 02/11/18 Smz/Tmp Ds [Bactrim Ds] 1 tab PO BID #7 tab 02/11/18 Surgical History: angioplasty, cholecystectomy, herniorrhaphy, hysterectomy, - - tubal ligation. Psychiatric History: No pertinent psych hx [employer] History: No pertinent [employer] history Smoking Status: Former smoker Tobacco Use: Non-smoker Alcohol: None Drugs: None - *Family History Maternal History Items: No pertinent history Paternal History Items: Heart Disease, Stroke - age 62 Offspring History Items: No pertinent history - 5 children, 32 grand children and great grandchildren Review of Systems Constitutional: Reports: Weakness. Denies: Chills, Fever, Weight Change HEENT: Denies: Head Aches, Sinus Congestion, Sinus Drainage Cardiovascular: Denies: Chest Pain, Claudication, Chest Pressure, Orthopnea, Palpitations, Paroxysmal Noc. Dyspnea Respiratory: Denies: Cough, Shortness of breath at rest, Sputum production Gastrointestinal: Denies: Abdominal Pain, Nausea, Vomiting Skin: Denies: Wounds Unable to obtain accurate/complete ROS d/t: ROS was limited on account of patient's lethargy VTE Information - Inpt Only VTE Present on Admission: No VTE Pharm Prophylaxis ordered?: Yes Patient Problems: Active and Suspected Problems Hypoglycemia (Acute) - Physical Exam General: Alert, Cooperative, Lethargic HEENT: Atraumatic, PERRLA, EOMI, Normocephalic Oral: Moist Mucosa Neck: Supple Lungs: Clear to auscultation, Normal air movement Cardiovascular: Regular rate, Regular Rhythm, Normal S1, Normal S2, No murmurs Abdomen: Bowel Sounds Present, Soft, Non Tender, Non-Distended, No Hepato-splenomegaly Extremities: No edema Skin: No rashes, No breakdown Musculoskeletal: No Tenderness to Palpation of Joints or Extremities Lymphatic: No Cervical, Supraclavicular, or Inguinal Adenopathy Neurological: Cranial nerves II-XII grossly intact, Neuro grossly intact Psych/Mental Status: Normal Affect, Appropriate Vital Signs Temp Pulse Resp BP Pulse Ox 98.0 F 62 17 105/68 98 04/04/18 15:33 04/04/18 17:09 04/04/18 17:09 04/04/18 17:09 04/04/18 17:09 Oxygen Flow Rate (L/min) 2 Oxygen Delivery Method Room Air Weight: 101.3 kg Body Mass Index (BMI) 39.5 Finger Stick Blood Glucose 85 Laboratory Tests Past 24 Hrs 04/04/18 04/04/18 04/04/18 15:42 15:42 15:42 WBC 7.1 RBC 3.93 L Hgb 11.9 L Hct 38.7 MCV 98.5 MCH 30.3 MCHC 30.7 L RDW 17.0 H RDW Differential 59.8 H Plt Count 176 MPV 10.5 Immature Gran % (Auto) 0.300 Neut % (Auto) 64.3 Lymph % (Auto) 20.4 [place] % (Auto) 9.2 Eos % (Auto) 5.4 H Baso % (Auto) 0.4 Absolute Neuts (auto) 4.6 Absolute Lymphs (auto) 1.44 Total Counted Not Reportable Specimen Type Sample Site pH Bicarbonate Actual POC Total CO2 Base Excess O2 Saturation ABG pCO2 ABG pO2 [place] Test O2 Delivery Device Liter Flow Blood Gas Notified Whom Blood Gas Notified Time Sodium 147 H Potassium 3.5 Chloride 106 Carbon Dioxide 36.0 H Anion Gap 5 BUN 12 Creatinine 0.70 Estim Creat Clear Calc 68.05 Est GFR (MDRD) Af Amer 109 Est GFR (MDRD) Non-Af 90 BUN/Creatinine Ratio 17.2 Glucose 70 L Lactic Acid Calcium 8.3 L Total Bilirubin 1.10 H AST 13 L ALT 13 Alkaline Phosphatase 45 Troponin I < 0.015 Total Protein 7.3 Albumin 3.2 Globulin 4.1 Albumin/Globulin Ratio 0.8 L Urine Color Urine Clarity Urine pH Ur Specific [place] Urine Protein Urine Glucose (UA) Urine Ketones Urine Occult Blood Urine Nitrite Urine Bilirubin Urine Urobilinogen Ur Leukocyte Esterase Urine RBC Urine WBC Ur Squamous Epith Cells Urine Bacteria Urine Mucus Urine Opiates Screen Urine Methadone Screen Ur Barbiturates Screen Ur Phencyclidine Scrn Ur Amphetamines Screen U Methamphetamin-MDMA U Benzodiazepines Scrn Urine Cocaine Screen U Cannabinoids Screen Ur Drug Screen Comment Ethyl Alcohol 4.0 04/04/18 04/04/18 04/04/18 15:49 16:06 16:37 WBC RBC Hgb Hct MCV MCH MCHC RDW RDW Differential Plt Count MPV Immature Gran % (Auto) Neut % (Auto) Lymph % (Auto) [place] % (Auto) Eos % (Auto) Baso % (Auto) Absolute Neuts (auto) Absolute Lymphs (auto) Total Counted Specimen Type ART Sample Site L Radial pH 7.35 Bicarbonate Actual 34.1 H POC Total CO2 36 Base Excess 9 H O2 Saturation 96 ABG pCO2 61.3 H ABG pO2 87 [place] Test POS O2 Delivery Device Nasal Can Liter Flow 3.0 Blood Gas Notified Whom ED Blood Gas Notified Time 1557 Sodium Potassium Chloride Carbon Dioxide Anion Gap BUN Creatinine Estim Creat Clear Calc Est GFR (MDRD) Af Amer Est GFR (MDRD) Non-Af BUN/Creatinine Ratio Glucose Lactic Acid 1.3 Calcium Total Bilirubin AST ALT Alkaline Phosphatase Troponin I Total Protein Albumin Globulin Albumin/Globulin Ratio Urine Color Yellow Urine Clarity Clear Urine pH 6.0 Ur Specific [place] 1.015 Urine Protein Negative Urine Glucose (UA) Normal Urine Ketones Negative Urine Occult Blood Negative Urine Nitrite Negative Urine Bilirubin Negative Urine Urobilinogen Normal Ur Leukocyte Esterase 25 H Urine RBC 0 SEEN Urine WBC 0-5 SEEN Ur Squamous Epith Cells 0 SEEN Urine Bacteria 0 SEEN Urine Mucus 0 SEEN Urine Opiates Screen Urine Methadone Screen Ur Barbiturates Screen Ur Phencyclidine Scrn Ur Amphetamines Screen U Methamphetamin-MDMA U Benzodiazepines Scrn Urine Cocaine Screen U Cannabinoids Screen Ur Drug Screen Comment Ethyl Alcohol 04/04/18 16:37 WBC RBC Hgb Hct MCV MCH MCHC RDW RDW Differential Plt Count MPV Immature Gran % (Auto) Neut % (Auto) Lymph % (Auto) [place] % (Auto) Eos % (Auto) Baso % (Auto) Absolute Neuts (auto) Absolute Lymphs (auto) Total Counted Specimen Type Sample Site pH Bicarbonate Actual POC Total CO2 Base Excess O2 Saturation ABG pCO2 ABG pO2 [place] Test O2 Delivery Device Liter Flow Blood Gas Notified Whom Blood Gas Notified Time Sodium Potassium Chloride Carbon Dioxide Anion Gap BUN Creatinine Estim Creat Clear Calc Est GFR (MDRD) Af Amer Est GFR (MDRD) Non-Af BUN/Creatinine Ratio Glucose Lactic Acid Calcium Total Bilirubin AST ALT Alkaline Phosphatase Troponin I Total Protein Albumin Globulin Albumin/Globulin Ratio Urine Color Urine Clarity Urine pH Ur Specific [place] Urine Protein Urine Glucose (UA) Urine Ketones Urine Occult Blood Urine Nitrite Urine Bilirubin Urine Urobilinogen Ur Leukocyte Esterase Urine RBC Urine WBC Ur Squamous Epith Cells Urine Bacteria Urine Mucus Urine Opiates Screen NEGATIVE Urine Methadone Screen NEGATIVE Ur Barbiturates Screen NEGATIVE Ur Phencyclidine Scrn NEGATIVE Ur Amphetamines Screen NEGATIVE U Methamphetamin-MDMA NEGATIVE U Benzodiazepines Scrn NEGATIVE Urine Cocaine Screen NEGATIVE U Cannabinoids Screen NEGATIVE Ur Drug Screen Comment Ethyl Alcohol POC Glucose 04/04/18 15:35 POC Glucose 85 Assessment/Plan All Active Problems Mental status alteration (Acute) Acute on chronic respiratory failure with hypoxia and hypercapnia (Acute) COPD exacerbation (Acute) Possible pneumonia (Acute) Atrial fibrillation with RVR (Acute) Hypoglycemia (Acute) COPD with moderate acute bronchitis (Acute) Acute hypoglycemia (Acute) Abnormal nuclear stress test (Resolved) Pneumonia (Resolved) Septic shock (Resolved) 63 year old F with multiple comorbidities including type 2 DM, hypertension, chronic respiratory failure secondary to COPD, PARESH on BiPAP,chronic atrial fibrillation who was brought in by the EMS squad with complaints of difficulty to arouse. 1. Acute metabolic encephalopathy, multifactorial etiology, she was found hypoglycemic, encephalopathy persisted even after correcting hypoglycemia. Lethargy could be contributing to that by hypercapnia, she has not been using her BiPAP Plan: Admit to PCU, monitor on telemetry, start on BiPAP settings as was in the hospital in January, (12/6, 35%), monitor mentation 2. Episode of hypoglycemia in a type II diabetic, likely related to poor p.o. intake, blood sugar was 50 by the EMS, repeat in the ED was 85 and 150 PLAN: Continue on D5 normal saline with Accu-Cheks every 6 and will switch to before meals at bedtime when patient is much more awake and alert would hold home insulin for now 3. Chronic respiratory failure secondary to COPD, no signs of exacerbation, will continue with as needed breathing treatments 4. Paroxysmal atrial fibrillation, rate controlled, continue on home medications 5. History of recurrent UTI, UA is not suggestive of UTI 6. CAD, continue on aspirin, betablocker, statin 7. Hypertension, controlled, continue home meds 8. Hypothyroidism, continue on hypothyroidism 9. PARESH, not using her Bipap at night 10. Recently found lung mass, patient was supposed to follow up with PCP for repeat chest x-ray in 3 months 11. DVT PPx- Lovenox SC Code Visit Inpatient E&M: 68187 Init Hosp L3
[2018-04-04 17:46] LABS: Bedside Glucose 150 mg/dL (70-110)
[2018-04-04] MEDS: Dextrose 5%/0.9% NaCl 1,000 ML 50 ML IV (19:35)
[2018-04-04 20:16] LABS: Bedside Glucose 48 mg/dL (70-110)
[2018-04-04 20:36] LABS: Bedside Glucose 191 mg/dL (70-110)
--- NOTE | 2018-04-04 20:46 | NURSING ---
Returned call to John pts son. He is unable to tell me home meds at this time as he's not where pts med list is at. States he will call the hospital later with pts updated home meds.
[2018-04-04 23:31] LABS: Bedside Glucose 72 mg/dL (70-110)
[2018-04-05] VITALS (19 sets, daily range): BP systolic 111–179; BP diastolic 51–75; PULSE 57–135; RESP 12–24; TEMP 36.1–37.2; O2SAT 93–100
[2018-04-05] MEDS: Dextrose 50%-Water 25 GM/50 ML DISP.SYRIN IV (02:04)
[2018-04-05] MEDS: Dextrose 10%-Water 250 ML 75 ML IV ×2 (02:05→05:21)
[2018-04-05 02:26] LABS: Bedside Glucose 144 mg/dL (70-110)
[2018-04-05 02:26] LABS: Bedside Glucose 34 mg/dL (70-110)
[2018-04-05 04:06] LABS: Bedside Glucose 108 mg/dL (70-110)
[2018-04-05 06:00] LABS: Bedside Glucose 100 mg/dL (70-110)
[2018-04-05 06:26] LABS: Anion Gap 5 (5-15); BUN 11 mg/dL (7-18); BUN/Creat Ratio 22.8 RATIO (10-20); Calcium,Total 8.1 mg/dL (8.5-10.1); Chloride 106 mmol/L (98-107); Creatinine, Serum 0.48 mg/dL (0.55-1.02); EST Glomerular Filtration Rate 138 mL/min (>60); Est Glom Filt Rate - Afr Amer 167 mL/min (>60); Estimated Creatinine Clearance 94.88 ml/min; Glucose 107 mg/dL (74-106); Potassium 3.1 mmol/L (3.5-5.1); Sodium Level 146 mmol/L (136-145)
[2018-04-05 09:11] LABS: Bedside Glucose 96 mg/dL (70-110)
--- NOTE | 2018-04-05 10:36 | PN_ITS ---
Patient Problems: Active and Suspected Problems Hypoglycemia (Acute) Subjective: Patient was seen and examined. Denies any complaints. Blood sugars are better. Awake and more alert. Was managed on BiPAP at night. Discussed in depth with the patient and his son; patient states she gets confused when she has to use a BiPAP and the whole apparatus is confusing to her. Objective: Physical Exam General: Alert, Cooperative, Lethargic HEENT: Atraumatic, PERRLA, EOMI, Normocephalic Oral: Moist Mucosa Neck: Supple Lungs: Clear to auscultation, Normal air movement Cardiovascular: Regular rate, Regular Rhythm, Normal S1, Normal S2, No murmurs Abdomen: Bowel Sounds Present, Soft, Non Tender, Non-Distended, No Hepato- splenomegaly Extremities: No edema Skin: No rashes, No breakdown Musculoskeletal: No Tenderness to Palpation of Joints or Extremities Lymphatic: No Cervical, Supraclavicular, or Inguinal Adenopathy Neurological: Cranial nerves II-XII grossly intact, Neuro grossly intact Psych/Mental Status: Normal Affect, Appropriate Vitals/I&O's: Vital Signs Temp Pulse Resp BP Pulse Ox 96.9 F L 74 20 H 137/56 H 98 04/05/18 05:55 04/05/18 07:42 04/05/18 07:42 04/05/18 05:55 04/05/18 07:42 Oxygen Flow Rate (L/min) 3 Oxygen Delivery Method Bi-pap Weight: 99.337 kg Body Mass Index (BMI) 40.0 Finger Stick Blood Glucose 150 Intake and Output for Last 24 Hours 04/03/18 04/04/18 04/05/18 23:59 23:59 23:59 Intake Total 211 / 211 383 / 383 Output Total 500 / 500 Balance -289 / -289 383 / 383 Laboratory Results 04/04/18 17:39: POC Glucose 150 H 04/04/18 20:09: POC Glucose 48 L 04/04/18 20:31: POC Glucose 191 H 04/04/18 23:23: POC Glucose 72 04/05/18 01:49: POC Glucose 34 L* 04/05/18 02:18: POC Glucose 144 H 04/05/18 04:00: POC Glucose 108 04/05/18 05:10: Sodium 146 H, Potassium 3.1 L, Chloride 106, Carbon Dioxide 35.0 H, Anion Gap 5, BUN 11, Creatinine 0.48 L, Estim Creat Clear Calc 94.88, Est GFR (MDRD) Af Amer 167, Est GFR (MDRD) Non-Af 138, BUN/Creatinine Ratio 22.8 H, Glucose 107 H, Calcium 8.1 L 04/05/18 05:53: POC Glucose 100 04/05/18 08:59: POC Glucose 96 Current Medications Acetaminophen (Tylenol) 650 mg PO Q6H PRN PRN PRN Reason: Mild Pain (1-3)/Temp > 100.7 F Albuterol/Ipratropium (Duoneb) 3 ml INHALATION Q4H.RT SHADY Apixaban (Eliquis) 2.5 mg PO BID SHADY Ascorbic Acid (Vitamin C) 500 mg PO DAILY@0800 SHADY Aspirin (Aspirin, Baby) 81 mg PO DAILY@0800 SHADY Atorvastatin Calcium (Lipitor) 40 mg PO QHS SHADY Bisacodyl (Dulcolax) 5 mg PO DAILY PRN PRN PRN Reason: Constipation Dextrose (D50w Syringe) 0 gm IV X1 PRN; Protocol PRN Reason: Hypoglycemia Last Admin: 04/05/18 02:04 Dose: 25 gm Diltiazem HCl (Cardizem Cd) 180 mg PO DAILY [facility] Docusate Sodium (Colace) 100 mg PO DAILY PRN PRN PRN Reason: Constipation Duloxetine HCl (Cymbalta) 60 mg PO DAILY [facility] Enoxaparin Sodium (Lovenox) 40 mg SC DAILY@1000 [facility] Estradiol (Estrace Vaginal Cream) gm VAGINAL MOWEFR SHADY Ferrous Gluconate (Ferrous Gluconate) 325 mg PO DAILY@0800 [facility] Fluticasone Propionate (Flonase Nasal [place]) 2 spray NASAL DAILY SHADY Furosemide (Lasix) 40 mg PO BIDLX [facility] Glucagon () 1 mg IM .X1 PRN PRN Reason: Hypoglycemia Insulin Human Lispro (Humalog Kwikpen (Bkc)) 22 unit SC LUNCH SHADY Insulin Human Lispro (Humalog Kwikpen (Bkc)) 24 unit SC DINNER [facility] Isosorbide Mononitrate (Imdur) 90 mg PO DAILY [facility] Levothyroxine Sodium (Synthroid) 100 mcg PO DAILY [facility] Magnesium Hydroxide (Milk Of Magnesia) 30 ml PO DAILY PRN PRN Reason: Constipation Metoprolol Tartrate (Lopressor (Beta Kaye)) 100 mg PO BID SHADY Non-Formulary Medication (Capsaicin [Capsaicin]) 1 dose TP 4X/DAY SHADY Non-Formulary Medication (Guaifenesin/Dextromethorphan [Mucinex Dm Er 1,200-60 Mg Tab]) 1 each PO BID HSADY Non-Formulary Medication (Insulin Glargine,Hum.Rec.Anlog) 56 unit SQ BID SHADY Non-Formulary Medication (Insulin Lispro) 14 unit SQ BREAKFAST SHADY Non-Formulary Medication (Metformin Hcl [Metformin Hcl Er]) 1,000 mg PO BID SHADY Nutritional Formula (Lactose Free) (Glucerna Shake) 120 ml PO 4X/DAY SHADY Pantoprazole Sodium (Protonix) 20 mg PO BID SHADY Potassium Chloride (K-Dur) 40 meq PO X1 ONE Stop: 04/05/18 09:53 Psyllium Hydrophilic Mucilloid (Metamucil) 1 packet PO DAILY PRN PRN PRN Reason: CONSTIPATION Senna (Senokot) tablet PO BID SHADY Sodium Chloride () 5 - 30 ml IV UD PRN PRN Reason: SALINE FLUSH Medical Necessity - Tobacco Use Smoking Status: Former smoker Tobacco Use: Non-smoker Assessment/Plan All Active Problems Mental status alteration (Acute) Acute on chronic respiratory failure with hypoxia and hypercapnia (Acute) COPD exacerbation (Acute) Possible pneumonia (Acute) Atrial fibrillation with RVR (Acute) Hypoglycemia (Acute) COPD with moderate acute bronchitis (Acute) Acute hypoglycemia (Acute) Abnormal nuclear stress test (Resolved) Pneumonia (Resolved) Septic shock (Resolved) 63 year old F with multiple comorbidities including type 2 DM, hypertension, chronic respiratory failure secondary to COPD, PARESH on BiPAP,chronic atrial fibrillation who was brought in by the EMS squad with complaints of difficulty to arouse. 1. Acute metabolic encephalopathy, multifactorial etiology, hypoglycemia and hypercapnia is likely the contributing factor CA, resolved 2. Episode of hypoglycemia in a type IACHS, resume home insulin and monitor blood sugars very carefully. May need to back off home insulin regimen. 3. Chronic respiratory failure secondary to COPD, no signs of exacerbation, will continue with as needed breathing treatments 4. Paroxysmal atrial fibrillation, rate controlled, continue on home medications 5. History of recurrent UTI, UA is not suggestive of UTI 6. CAD, continue on aspirin, betablocker, statin 7. Hypertension, controlled, continue home meds 8. Hypothyroidism, continue on hypothyroidism 9. PARESH, not using her Bipap at night, after discussion with the patient and her son, health illiteracy versus cognitive impairment may be a reason why patient has not be using her BiPAP as she said it is complex to her and she gets confused when she has to use it at night. 10. Recently found lung mass, patient was supposed to follow up with PCP for repeat chest x-ray in 3 months 11. Medical noncompliance/health Illiteracy, patient will need closer supervision at home, discussed with her son who will discuss with his siblings. Case management consulted to see what other assistance that could be offered to this patient she is at high risk of readmissions, worsening morbidity and mortality. 12. DVT PPx- Lovenox SC Code Visit Inpatient E&M: 03001 Subs Hosp L2
[2018-04-05 11:40] LABS: Bedside Glucose 274 mg/dL (70-110)
[2018-04-05] MEDS: Insulin Lispro 100 UNIT/ML INSULN.PEN 22 UNIT SC (12:33)
[2018-04-05] MEDS: dilTIAZem CD 180 MG Capsule PO (12:35)
[2018-04-05] MEDS: Metoprolol Tartrate 100 MG Tablet PO ×2 (12:35→22:17)
[2018-04-05] MEDS: Glucerna Shake 120 ML LIQUID PO ×2 (12:39→17:09)
--- NOTE | 2018-04-05 13:49 | NURSING ---
Patient, 2 sons and a girlfriend of a son all in patient room. All agree that the missing $40 is with patients other son.
[2018-04-05] MEDS: Ipratropium/Albuterol Sulfate 3 ML AMPUL.NEB INHALATION ×3 (14:56→22:45)
[2018-04-05] MEDS: Furosemide 40 MG Tablet PO (17:08)
[2018-04-05] MEDS: Insulin Lispro 100 UNIT/ML INSULN.PEN 24 UNIT SC (17:08)
[2018-04-05 17:15] LABS: Bedside Glucose 189 mg/dL (70-110)
[2018-04-05] MEDS: Acetaminophen 325 MG Tablet 650 MG PO (20:56)
[2018-04-05] MEDS: APIXABAN 2.5 MG TABLET PO (22:17)
[2018-04-05] MEDS: Atorvastatin Calcium 40 MG Tablet PO (22:20)
[2018-04-05] MEDS: guaiFENesin/D-Methorphan TAB.SR.12H 1 TABLET PO (22:20)
[2018-04-05] MEDS: Senna Tablet 1 TABLET PO (22:21)
[2018-04-05] MEDS: Pantoprazole Sodium 20 MG Tablet PO (22:21)
[2018-04-05 23:26] LABS: Bedside Glucose 111 mg/dL (70-110)
[2018-04-06] VITALS (18 sets, daily range): BP systolic 106–153; BP diastolic 49–98; PULSE 47–73; RESP 12–26; TEMP 36.4–37; O2SAT 92–99
[2018-04-06] MEDS: Levothyroxine 100 MCG Tablet PO (05:48)
[2018-04-06] MEDS: Acetaminophen 325 MG Tablet 650 MG PO ×3 (05:56→20:15)
[2018-04-06] MEDS: Ipratropium/Albuterol Sulfate 3 ML AMPUL.NEB INHALATION ×5 (06:36→23:15)
[2018-04-06 07:06] LABS: Bedside Glucose 127 mg/dL (70-110)
[2018-04-06] MEDS: Aspirin 81 MG TAB.CHEW PO (09:29)
[2018-04-06] MEDS: Ferrous Gluconate 325 MG Tablet PO (09:30)
[2018-04-06] MEDS: Insulin Lispro 100 UNIT/ML INSULN.PEN 14 UNIT SC (09:30)
[2018-04-06] MEDS: DULoxetine Hcl 60 MG Capsule PO (09:31)
[2018-04-06] MEDS: dilTIAZem CD 180 MG Capsule PO (09:31)
[2018-04-06] MEDS: Ascorbic Acid 500 MG Tablet PO (09:31)
[2018-04-06] MEDS: Glucerna Shake 120 ML LIQUID PO ×2 (09:32→17:05)
[2018-04-06] MEDS: Fluticasone 0.05% 1 SPRAY NASAL.SRY 2 SPRAY NASAL (09:32)
[2018-04-06] MEDS: guaiFENesin/D-Methorphan TAB.SR.12H 1 TABLET PO ×2 (09:32→21:20)
[2018-04-06] MEDS: APIXABAN 2.5 MG TABLET PO ×2 (09:32→21:20)
[2018-04-06] MEDS: Isosorbide Mononitrate 60 MG Tablet 90 MG PO (09:33)
[2018-04-06] MEDS: Furosemide 40 MG Tablet PO ×2 (09:36→17:05)
[2018-04-06] MEDS: Metoprolol Tartrate 100 MG Tablet PO ×2 (09:36→21:20)
[2018-04-06] MEDS: Pantoprazole Sodium 20 MG Tablet PO ×2 (09:37→21:20)
[2018-04-06] MEDS: Senna Tablet 1 TABLET PO ×2 (09:37→21:20)
--- NOTE | 2018-04-06 09:43 | PCM.PN.HOSP ---
Patient Problems: Active and Suspected Problems Hypoglycemia (Acute) Subjective: Patient is a 63-year-old lady with multiple comorbidities admitted with changes in her level of sensorium Objective: GENERAL: Flat affect HEENT: Clear conjunctiva, NECK; supple, normal thyroid, CHEST: Diminished to auscultation bilaterally, HEART: Irregular S1 S2, ABDOMEN: soft, non-tender, normoactive bowel sounds, RECTAL: deferred EXTREMITIES: No edema, no clubbing, no cyanosis. INJECTION WAX MOLDER: Awake; no lateralizing signs. SKIN: No nodules Vitals/I&O's: Vital Signs Temp Pulse Resp BP Pulse Ox 98.2 F 57 L 20 H 116/55 L 99 04/06/18 03:50 04/06/18 09:36 04/06/18 06:36 04/06/18 03:50 04/06/18 06:36 Oxygen Flow Rate (L/min) 3 Oxygen Delivery Method Nasal Cannula Weight: 99.337 kg Body Mass Index (BMI) 40.0 Finger Stick Blood Glucose 150 Intake and Output for Last 24 Hours 04/04/18 04/05/18 04/06/18 23:59 23:59 23:59 Intake Total 211 / 211 383 / 383 300 / 300 Output Total 500 / 500 800 / 800 Balance -289 / -289 -417 / -417 300 / 300 Laboratory Results 04/05/18 11:31: POC Glucose 274 H 04/05/18 17:04: POC Glucose 189 H 04/05/18 22:16: POC Glucose 111 H 04/06/18 06:59: POC Glucose 127 H Current Medications Acetaminophen (Tylenol) 650 mg PO Q6H PRN PRN PRN Reason: Mild Pain (1-3)/Temp > 100.7 F Last Admin: 04/06/18 05:56 Dose: 650 mg Albuterol/Ipratropium (Duoneb) 3 ml INHALATION Q4H.RT [facility] Last Admin: 04/06/18 06:36 Dose: 3 ml Apixaban (Eliquis) 2.5 mg PO BID [facility] Last Admin: 04/06/18 09:32 Dose: 2.5 mg Ascorbic Acid (Vitamin C) 500 mg PO DAILY@0800 [facility] Last Admin: 04/06/18 09:31 Dose: 500 mg Aspirin (Aspirin, Baby) 81 mg PO DAILY@0800 [facility] Last Admin: 04/06/18 09:29 Dose: 81 mg Atorvastatin Calcium (Lipitor) 40 mg PO QHS [facility] Last Admin: 04/05/18 22:20 Dose: 40 mg Bisacodyl (Dulcolax) 5 mg PO DAILY PRN PRN PRN Reason: Constipation Dextrose (D50w Syringe) 0 gm IV X1 PRN; Protocol PRN Reason: Hypoglycemia Last Admin: 04/05/18 02:04 Dose: 25 gm Diltiazem HCl (Cardizem Cd) 180 mg PO DAILY [facility] Last Admin: 04/06/18 09:31 Dose: 180 mg Docusate Sodium (Colace) 100 mg PO DAILY PRN PRN PRN Reason: Constipation Duloxetine HCl (Cymbalta) 60 mg PO DAILY [facility] Last Admin: 04/06/18 09:31 Dose: 60 mg Ferrous Gluconate (Ferrous Gluconate) 325 mg PO DAILY@0800 [facility] Last Admin: 04/06/18 09:30 Dose: 325 mg Fluticasone Propionate (Flonase Nasal [place]) 2 spray NASAL DAILY [facility] Last Admin: 04/06/18 09:32 Dose: 2 spray Furosemide (Lasix) 40 mg PO BIDLX [facility] Last Admin: 04/06/18 09:36 Dose: 40 mg Glucagon () 1 mg IM .X1 PRN PRN Reason: Hypoglycemia Guaifenesin (Humibid Dm) 1 tablet PO BID [facility] Last Admin: 04/06/18 09:32 Dose: 1 tablet Insulin Glargine (Lantus (Bkc)) 56 units SC BID [facility] Last Admin: 04/06/18 09:36 Dose: 56 units Insulin Human Lispro (Humalog Kwikpen (Bkc)) 14 unit SC BREAKFAST [facility] Last Admin: 04/06/18 09:30 Dose: 14 units Insulin Human Lispro (Humalog Kwikpen (Bkc)) 22 unit SC LUNCH [facility] Last Admin: 04/05/18 12:33 Dose: 22 u Insulin Human Lispro (Humalog Kwikpen (Bkc)) 24 unit SC DINNER [facility] Last Admin: 04/05/18 17:08 Dose: 24 u Isosorbide Mononitrate (Imdur) 90 mg PO DAILY [facility] Last Admin: 04/06/18 09:33 Dose: 90 mg Levothyroxine Sodium (Synthroid) 100 mcg PO DAILY@0600 [facility] Last Admin: 04/06/18 05:48 Dose: 100 mcg Magnesium Hydroxide (Milk Of Magnesia) 30 ml PO DAILY PRN PRN Reason: Constipation Metformin HCl (Glucophage Xr) 1,000 mg PO BIDCM [facility] Last Admin: 04/06/18 09:30 Dose: 1,000 mg Metoprolol Tartrate (Lopressor (Beta Kaye)) 100 mg PO BID [facility] Last Admin: 04/06/18 09:36 Dose: 100 mg Nutritional Formula (Lactose Free) (Glucerna Shake) 120 ml PO 4X/DAY [facility] Last Admin: 04/06/18 09:32 Dose: 120 ml Pantoprazole Sodium (Protonix) 20 mg PO BID [facility] Last Admin: 04/06/18 09:37 Dose: 20 mg Psyllium Hydrophilic Mucilloid (Metamucil) 1 packet PO DAILY PRN PRN PRN Reason: CONSTIPATION Senna (Senokot) 1 tablet PO BID [facility] Last Admin: 04/06/18 09:37 Dose: 1 tablet Sodium Chloride () 5 - 30 ml IV UD PRN PRN Reason: SALINE FLUSH Medical Necessity - Tobacco Use Smoking Status: Former smoker Tobacco Use: Non-smoker Assessment/Plan All Active Problems Mental status alteration (Acute) Acute on chronic respiratory failure with hypoxia and hypercapnia (Acute) COPD exacerbation (Acute) Possible pneumonia (Acute) Atrial fibrillation with RVR (Acute) Hypoglycemia (Acute) COPD with moderate acute bronchitis (Acute) Acute hypoglycemia (Acute) Abnormal nuclear stress test (Resolved) Pneumonia (Resolved) Septic shock (Resolved) Patient is a 63-year-old lady with multiple comorbidities admitted with changes in her level of sensorium 1. Acute metabolic encephalopathy attributed to a combination of hypoglycemia as well as hypercapnia 2. 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 Patient was admitted to monitored bed with adjustment of her insulin regimen 3. Acute hypercapnic respiratory failure secondary to combination of obstructive sleep apnea, obesity hypoventilation syndrome as well as COPD patient apparently noncompliant with her BiPAP at home. He will discussion with patient and family regarding possibility of patient being transferred to a [place] facility patient declined. 4. Paroxysmal A. fib rate controlled: Patient is on apixaban for systemic anticoagulation 5. History of recurrent UTI patient was asymptomatic on admission 6. Morbid obesity with BMI of 40.1 lifestyle modification including weight loss advised 7. Lung mass patient is scheduled for follow-up with PCP for evaluation; patient apparently has an appointment on today 04/06/2018 with patient being in the hospital she was advised to reschedule this appointment 8. Hypothyroidism-patient is on levothyroxine home dose continued 9. Hypertension-blood pressure controlled, home medications continued with dose adjustment as needed 10. CAD ~ stable 11. Obstructive sleep apnea; patient educated on the need to be compliant with her BiPAP at night 12. DVT prophylaxis ~ apixaban 10. Hypokalemia corrected for protocol Clinical Impression(s) from Imaging Studies Brain CT 04/04/18 15:36 IMPRESSION: 1. Chronic involutional changes of the brain. 2. No CT evidence of acute intracranial hemorrhage. Electronically Signed: Jelly Davis MD at 16:56 EDT , Service support , Chest X-Ray 04/04/18 16:05 IMPRESSION: Cardiomegaly and mild pulmonary congestion. Electronically Signed: Jelly Davis MD at 17:01 EDT , Service support , Active Medications Acetaminophen (Tylenol) 650 mg PO Q6H PRN PRN PRN Reason: Mild Pain (1-3)/Temp > 100.7 F Last Admin: 04/06/18 12:05 Dose: 650 mg Albuterol/Ipratropium (Duoneb) 3 ml INHALATION Q4H.RT [facility] Last Admin: 04/06/18 11:07 Dose: 3 ml Apixaban (Eliquis) 2.5 mg PO BID [facility] Last Admin: 04/06/18 09:32 Dose: 2.5 mg Ascorbic Acid (Vitamin C) 500 mg PO DAILY@0800 [facility] Last Admin: 04/06/18 09:31 Dose: 500 mg Aspirin (Aspirin, Baby) 81 mg PO DAILY@0800 [facility] Last Admin: 04/06/18 09:29 Dose: 81 mg Atorvastatin Calcium (Lipitor) 40 mg PO QHS [facility] Last Admin: 04/05/18 22:20 Dose: 40 mg Bisacodyl (Dulcolax) 5 mg PO DAILY PRN PRN PRN Reason: Constipation Dextrose (D50w Syringe) 0 gm IV X1 PRN; Protocol PRN Reason: Hypoglycemia Last Admin: 04/05/18 02:04 Dose: 25 gm Diltiazem HCl (Cardizem Cd) 180 mg PO DAILY [facility] Last Admin: 04/06/18 09:31 Dose: 180 mg Docusate Sodium (Colace) 100 mg PO DAILY PRN PRN PRN Reason: Constipation Duloxetine HCl (Cymbalta) 60 mg PO DAILY [facility] Last Admin: 04/06/18 09:31 Dose: 60 mg Ferrous Gluconate (Ferrous Gluconate) 325 mg PO DAILY@0800 [facility] Last Admin: 04/06/18 09:30 Dose: 325 mg Fluticasone Propionate (Flonase Nasal [place]) 2 spray NASAL DAILY [facility] Last Admin: 04/06/18 09:32 Dose: 2 spray Furosemide (Lasix) 40 mg PO BIDLX [facility] Last Admin: 04/06/18 09:36 Dose: 40 mg Glucagon () 1 mg IM .X1 PRN PRN Reason: Hypoglycemia Guaifenesin (Humibid Dm) 1 tablet PO BID [facility] Last Admin: 04/06/18 09:32 Dose: 1 tablet Insulin Glargine (Lantus (Bkc)) 56 units SC BID [facility] Last Admin: 04/06/18 09:36 Dose: 56 units Insulin Human Lispro (Humalog Kwikpen (Bkc)) 14 unit SC BREAKFAST [facility] Last Admin: 04/06/18 09:30 Dose: 14 units Insulin Human Lispro (Humalog Kwikpen (Bkc)) 22 unit SC LUNCH [facility] Last Admin: 04/06/18 11:34 Dose: 22 units Insulin Human Lispro (Humalog Kwikpen (Bkc)) 24 unit SC DINNER [facility] Last Admin: 04/05/18 17:08 Dose: 24 u Isosorbide Mononitrate (Imdur) 90 mg PO DAILY [facility] Last Admin: 04/06/18 09:33 Dose: 90 mg Levothyroxine Sodium (Synthroid) 100 mcg PO DAILY@0600 [facility] Last Admin: 04/06/18 05:48 Dose: 100 mcg Magnesium Hydroxide (Milk Of Magnesia) 30 ml PO DAILY PRN PRN Reason: Constipation Metformin HCl (Glucophage Xr) 1,000 mg PO BIDCM [facility] Last Admin: 04/06/18 09:30 Dose: 1,000 mg Metoprolol Tartrate (Lopressor (Beta Kaye)) 100 mg PO BID [facility] Last Admin: 04/06/18 09:36 Dose: 100 mg Nutritional Formula (Lactose Free) (Glucerna Shake) 120 ml PO 4X/DAY [facility] Last Admin: 04/06/18 13:05 Dose: Not Given Pantoprazole Sodium (Protonix) 20 mg PO BID [facility] Last Admin: 04/06/18 09:37 Dose: 20 mg Psyllium Hydrophilic Mucilloid (Metamucil) 1 packet PO DAILY PRN PRN PRN Reason: CONSTIPATION Senna (Senokot) 1 tablet PO BID [facility] Last Admin: 04/06/18 09:37 Dose: 1 tablet Sodium Chloride () 5 - 30 ml IV UD PRN PRN Reason: SALINE FLUSH Code Visit Inpatient E&M: 15796 Subs Hosp L2
[2018-04-06 11:14] LABS: Anion Gap 6 (5-15); BUN 10 mg/dL (7-18); BUN/Creat Ratio 14.2 RATIO (10-20); Calcium,Total 8.9 mg/dL (8.5-10.1); Chloride 105 mmol/L (98-107); EST Glomerular Filtration Rate 89 mL/min (>60); Est Glom Filt Rate - Afr Amer 108 mL/min (>60); Estimated Creatinine Clearance 65.06 ml/min; Glucose 187 mg/dL (74-106); Potassium 3.7 mmol/L (3.5-5.1); Sodium Level 142 mmol/L (136-145)
[2018-04-06] MEDS: Insulin Lispro 100 UNIT/ML INSULN.PEN 22 UNIT SC (11:34)
[2018-04-06 11:51] LABS: Bedside Glucose 233 mg/dL (70-110)
--- NOTE | 2018-04-06 13:53 | CASEMGMT ---
RN CM Note. See RN CM Assessment Link. SW referral for pt-Passport Client. Yobany PACHECO RN ACM
--- NOTE | 2018-04-06 14:00 | CASEMGMT ---
This RN CM received a call from Sandi, pt's CM at [facility], and she states concern that pt's previous sleep study was cancelled and she has not rescheduled it yet. Sandi requests that this RN CM reschedule appointment for pt at this time. Call to sleep lab and study rescheduled for pt on 04/13/2018. Pt and family updated at this time, voice understanding. Pt states no concerns with that date at this time. Appointment placed in chart at this time. Magui SANTOS CM
--- NOTE | 2018-04-06 14:00 | CASEMGMT ---
Addendum entered by Almita Woods 04/06/18 14:12: BLAKE called [facility] again, spoke w/Yvon Thacker, covering pillowcase cutter, let him know pt is here in the hospital, He states pt has the following services: aide services through [facility], up to 26 hours per week, a [employer], delivered meals through [employer] and home PT/OT through [facility]. BLAKE called Tulio w/[facility] to verify if pt is still receiving home health services, she is not, was discharged on March 31, 2018. LETICIA Chao, CHIEF CLIENT OFFICER Original Note: Message left for Sabrina Bravo with [facility] earlier today by BLAKE Mariano. BLAKE attempted to call the coverage line for [facility] twice, nobody is answering. BLAKE/JOSEFINA will continue to follow for discharge needs. LETICIA Chao, CHIEF CLIENT OFFICER
--- NOTE | 2018-04-06 14:58 | CASEMGMT ---
BLAKE spoke with patient about going to a facility short term for rehab. She said absolutely not and said she is going home. BLAKE also called Keara Monte, patient's case finisher from [facility] and left her a voice mail letting her know patient is in the hospital. Charley ROLAND MSW
[2018-04-06] MEDS: Insulin Lispro 100 UNIT/ML INSULN.PEN 24 UNIT SC (17:05)
[2018-04-06 17:10] LABS: Bedside Glucose 120 mg/dL (70-110)
[2018-04-06] MEDS: Atorvastatin Calcium 40 MG Tablet PO (21:20)
[2018-04-06 21:30] LABS: Bedside Glucose 114 mg/dL (70-110)
[2018-04-07] VITALS (8 sets, daily range): BP systolic 134–162; BP diastolic 59–76; PULSE 59–84; RESP 12–20; TEMP 36.5–36.7; O2SAT 97–99
[2018-04-07] MEDS: Levothyroxine 100 MCG Tablet PO (06:45)
[2018-04-07] MEDS: Acetaminophen 325 MG Tablet 650 MG PO (06:45)
[2018-04-07 07:06] LABS: Bedside Glucose 146 mg/dL (70-110)
[2018-04-07] MEDS: Ipratropium/Albuterol Sulfate 3 ML AMPUL.NEB INHALATION (08:30)
--- NOTE | 2018-04-07 08:44 | PCM.DC ---
- Discharge Diagnoses Current Active Problems: Current Active and Chronic Problems Hypoglycemia (Acute) You will use the following diet at home:: Calorie/Carbohydrate Controlled (specify 1200, 1400, etc) - 1800 Your food should be the consistency of: Regular Discharge Activity: Return to Normal Activity, May not drive while taking narcotic pain medications. Allergies/Adverse Reactions: Allergies ciprofloxacin [From Cipro] Allergy (Verified 02/07/18 19:42) Hives latex Allergy (Verified 02/07/18 19:42) matos me niacin [From Niaspan Extended-Release] Allergy (Verified 02/07/18 19:42) Hives ondansetron [From Zofran] Allergy (Verified 02/07/18 19:42) Unknown Xanthines Allergy (Verified 02/07/18 19:42) Unknown Penicillins Adverse Reaction (Mild, Verified 02/07/18 19:42) Itching/redness orphenadrine citrate [From Norgesic] Adverse Reaction (Verified 02/07/18 19:42) groggy medical tape Adverse Reaction (Uncoded 02/07/18 19:42) blisters Medications to take at Discharge Albuterol Inhaler [Ventolin Hfa] 2 puff INHALATION Q4H PRN PRN 02/03/18 Apixaban [Eliquis] 2.5 mg PO BID 02/03/18 Ascorbic Acid [Vitamin C] 500 mg PO DAILY@0800 02/03/18 Aspirin [Aspirin, Baby] 81 mg PO DAILY@0800 02/03/18 Atorvastatin Calcium [Lipitor] 40 mg PO QHS 02/03/18 Capsaicin 1 dose TP 4X/DAY 02/03/18 Diltiazem HCl [Cartia Xt] 180 mg PO DAILY 02/03/18 Docusate Sodium [Stool Softener] 100 mg PO DAILY PRN PRN 02/03/18 Duloxetine Hcl [Cymbalta] 60 mg PO DAILY 02/03/18 Estradiol 1 dose VG MOWEFR 02/03/18 Ferrous Gluconate 325 mg PO DAILY@0800 02/03/18 Fluticasone 0.05% [Flonase Nasal [place]] 2 spray NASAL DAILY 02/03/18 Furosemide [Lasix] 40 mg PO BIDLX 02/03/18 Insulin Glargine,Hum.rec.anlog [Lantus] 56 unit SQ BID 02/03/18 Insulin Lispro [Humalog KwikPen] 22 unit SQ LUNCH 02/03/18 Insulin Lispro [Humalog KwikPen] 24 unit SQ DINNER 02/03/18 Insulin Lispro [Humalog] 14 unit SQ BREAKFAST 02/03/18 Isosorbide Mononitrate [Imdur] 90 mg PO DAILY 02/03/18 Levothyroxine [Synthroid] 100 mcg PO DAILY 02/03/18 Metformin HCl [Metformin HCl ER] 1,000 mg PO BID 02/03/18 Pantoprazole Sodium [Protonix] 20 mg PO BID 02/03/18 Pregabalin [Lyrica] 100 mg PO TID 02/03/18 Sennosides [Claudia-Ramila] 8.6 mg PO BID 02/03/18 proMETHazine tablet [Phenergan tablet] 25 mg PO Q6H PRN PRN 02/03/18 Glucerna Shake 120 ml PO 4X/DAY 04/05/18 Guaifenesin/Dextromethorphan [Mucinex Dm ER 1,200-60 mg Tab] 1 each PO BID 04/05/18 Ipratropium/Albuterol Sulfate [Duoneb] 3 ml INHALATION Q4H.RT 04/05/18 Metoprolol Tartrate [Lopressor (beta sudhakar)] 100 mg PO BID 04/05/18 Primary Care Physician: Bhupendra Oliveira MD [Primary Care Provider] - Please follow up with your Primary Care Physician in: in 2-3 days Test Results: Test results from this visit will be discussed in further detail at your follow-up appointment, if applicable. Please Follow Up With: [facility] for sleep study Proposed Discharge Date: 04/07/18
--- NOTE | 2018-04-07 08:48 | DCINST_ITS ---
- Discharge Diagnoses Current Active Problems: Current Active and Chronic Problems Hypoglycemia (Acute) You will use the following diet at home:: Calorie/Carbohydrate Controlled ( specify 1200, 1400, etc) - 1800 Your food should be the consistency of: Regular Discharge Activity: Return to Normal Activity, May not drive while taking narcotic pain medications. Allergies/Adverse Reactions: Allergies ciprofloxacin [From Cipro] Allergy (Verified 02/07/18 19:42) Hives latex Allergy (Verified 02/07/18 19:42) matos me niacin [From Niaspan Extended-Release] Allergy (Verified 02/07/18 19:42) Hives ondansetron [From Zofran] Allergy (Verified 02/07/18 19:42) Unknown Xanthines Allergy (Verified 02/07/18 19:42) Unknown Penicillins Adverse Reaction (Mild, Verified 02/07/18 19:42) Itching/redness orphenadrine citrate [From Norgesic] Adverse Reaction (Verified 02/07/18 19:42) groggy medical tape Adverse Reaction (Uncoded 02/07/18 19:42) blisters Medications to take at Discharge Albuterol Inhaler [Ventolin Hfa] 2 puff INHALATION Q4H PRN PRN 02/03/18 Apixaban [Eliquis] 2.5 mg PO BID 02/03/18 Ascorbic Acid [Vitamin C] 500 mg PO DAILY@0800 02/03/18 Aspirin [Aspirin, Baby] 81 mg PO DAILY@0800 02/03/18 Atorvastatin Calcium [Lipitor] 40 mg PO QHS 02/03/18 Capsaicin 1 dose TP 4X/DAY 02/03/18 Diltiazem HCl [Cartia Xt] 180 mg PO DAILY 02/03/18 Docusate Sodium [Stool Softener] 100 mg PO DAILY PRN PRN 02/03/18 Duloxetine Hcl [Cymbalta] 60 mg PO DAILY 02/03/18 Estradiol 1 dose VG MOWEFR 02/03/18 Ferrous Gluconate 325 mg PO DAILY@0800 02/03/18 Fluticasone 0.05% [Flonase Nasal [place]] 2 spray NASAL DAILY 02/03/18 Furosemide [Lasix] 40 mg PO BIDLX 02/03/18 Insulin Glargine,Hum.rec.anlog [Lantus] 56 unit SQ BID 02/03/18 Insulin Lispro [Humalog KwikPen] 22 unit SQ LUNCH 02/03/18 Insulin Lispro [Humalog KwikPen] 24 unit SQ DINNER 02/03/18 Insulin Lispro [Humalog] 14 unit SQ BREAKFAST 02/03/18 Isosorbide Mononitrate [Imdur] 90 mg PO DAILY 02/03/18 Levothyroxine [Synthroid] 100 mcg PO DAILY 02/03/18 Metformin HCl [Metformin HCl ER] 1,000 mg PO BID 02/03/18 Pantoprazole Sodium [Protonix] 20 mg PO BID 02/03/18 Pregabalin [Lyrica] 100 mg PO TID 02/03/18 Sennosides [Claudia-Ramila] 8.6 mg PO BID 02/03/18 proMETHazine tablet [Phenergan tablet] 25 mg PO Q6H PRN PRN 02/03/18 Glucerna Shake 120 ml PO 4X/DAY 04/05/18 Guaifenesin/Dextromethorphan [Mucinex Dm ER 1,200-60 mg Tab] 1 each PO BID 04/05 Ipratropium/Albuterol Sulfate [Duoneb] 3 ml INHALATION Q4H.RT 04/05/18 Metoprolol Tartrate [Lopressor (beta sudhakar)] 100 mg PO BID 04/05/18 Primary Care Physician: Bhupendra Oliveira MD [Primary Care Provider] - Please follow up with your Primary Care Physician in: in 2-3 days Test Results: Test results from this visit will be discussed in further detail at your follow- up appointment, if applicable. Please Follow Up With: [facility] for sleep study Proposed Discharge Date: 04/07/18
--- NOTE | 2018-04-07 08:50 | DS.PCM_ITS ---
Discharge Date and Diagnosis - Problem List Patient Problems: Active and Suspected Problems Hypoglycemia (Acute) Date of Admission: 04/04/18 Date of Discharge: 04/07/18 - Primary Discharge Diagnosis Active and Suspected Problems Hypoglycemia (Acute) - Secondary Discharge Diagnosis Chronic Problems Diabetes mellitus type 2 in obese (Chronic) Coronary arteriosclerosis (Chronic) cath 05/2015 mild-moderate disease medical therapy recommended Hypothyroidism (Chronic) Hyperlipemia (Chronic) GERD (gastroesophageal reflux disease) (Chronic) Hypertension (Chronic) COPD (chronic obstructive pulmonary disease) (Chronic) Chronic respiratory insufficiency (Chronic) On home oxygen at night S/P PTCA (percutaneous transluminal coronary angioplasty) (Chronic) PARESH (obstructive sleep apnea) (Chronic) Hospital Course and Treatment Imaging Results: Clinical Impression(s) from Imaging Studies Brain CT 04/04/18 15:36 IMPRESSION: 1. Chronic involutional changes of the brain. 2. No CT evidence of acute intracranial hemorrhage. Electronically Signed: Jelly Davis MD at 16:56 EDT , Service support , Chest X-Ray 04/04/18 16:05 IMPRESSION: Cardiomegaly and mild pulmonary congestion. Electronically Signed: Jelly Davis MD at 17:01 EDT , Service support , Operations: None Summary of Care Provided: Patient is a 63-year-old lady with multiple comorbidities admitted with changes in her level of sensorium 1. Acute metabolic encephalopathy attributed to a combination of hypoglycemia as well as hypercapnia 2. 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 Patient was admitted to monitored bed with adjustment of her insulin regimen 3. Acute hypercapnic respiratory failure secondary to combination of obstructive sleep apnea, obesity hypoventilation syndrome as well as COPD patient apparently noncompliant with her BiPAP at home. He will discussion with patient and family regarding possibility of patient being transferred to a [place] facility patient declined. 4. Paroxysmal A. fib rate controlled: Patient is on apixaban for systemic anticoagulation 5. History of recurrent UTI patient was asymptomatic on admission 6. Morbid obesity with BMI of 40.1 lifestyle modification including weight loss advised 7. Lung mass patient is scheduled for follow-up with PCP for evaluation; patient apparently has an appointment on today 04/06/2018 with patient being in the hospital she was advised to reschedule this appointment 8. Hypothyroidism-patient is on levothyroxine home dose continued 9. Hypertension-blood pressure controlled, home medications continued with dose adjustment as needed 10. CAD ~ stable 11. Obstructive sleep apnea; patient educated on the need to be compliant with her BiPAP at night 12. DVT prophylaxis ~ apixaban 10. Hypokalemia corrected for protocol Discharge Diet: 1800 Calorie Control Diet Discharge Activity: Return to Normal Activity, May not drive while taking narcotic pain medications. Home Medications: Medications to take at Discharge Albuterol Inhaler [Ventolin Hfa] 2 puff INHALATION Q4H PRN PRN 02/03/18 Apixaban [Eliquis] 2.5 mg PO BID 02/03/18 Ascorbic Acid [Vitamin C] 500 mg PO DAILY@0800 02/03/18 Aspirin [Aspirin, Baby] 81 mg PO DAILY@0800 02/03/18 Atorvastatin Calcium [Lipitor] 40 mg PO QHS 02/03/18 Capsaicin 1 dose TP 4X/DAY 02/03/18 Diltiazem HCl [Cartia Xt] 180 mg PO DAILY 02/03/18 Docusate Sodium [Stool Softener] 100 mg PO DAILY PRN PRN 02/03/18 Duloxetine Hcl [Cymbalta] 60 mg PO DAILY 02/03/18 Estradiol 1 dose VG MOWEFR 02/03/18 Ferrous Gluconate 325 mg PO DAILY@0800 02/03/18 Fluticasone 0.05% [Flonase Nasal [place]] 2 spray NASAL DAILY 02/03/18 Furosemide [Lasix] 40 mg PO BIDLX 02/03/18 Insulin Glargine,Hum.rec.anlog [Lantus] 56 unit SQ BID 02/03/18 Insulin Lispro [Humalog KwikPen] 22 unit SQ LUNCH 02/03/18 Insulin Lispro [Humalog KwikPen] 24 unit SQ DINNER 02/03/18 Insulin Lispro [Humalog] 14 unit SQ BREAKFAST 02/03/18 Isosorbide Mononitrate [Imdur] 90 mg PO DAILY 02/03/18 Levothyroxine [Synthroid] 100 mcg PO DAILY 02/03/18 Metformin HCl [Metformin HCl ER] 1,000 mg PO BID 02/03/18 Pantoprazole Sodium [Protonix] 20 mg PO BID 02/03/18 Pregabalin [Lyrica] 100 mg PO TID 02/03/18 Sennosides [Claudia-Ramila] 8.6 mg PO BID 02/03/18 proMETHazine tablet [Phenergan tablet] 25 mg PO Q6H PRN PRN 02/03/18 Glucerna Shake 120 ml PO 4X/DAY 04/05/18 Guaifenesin/Dextromethorphan [Mucinex Dm ER 1,200-60 mg Tab] 1 each PO BID 04/05 Ipratropium/Albuterol Sulfate [Duoneb] 3 ml INHALATION Q4H.RT 04/05/18 Metoprolol Tartrate [Lopressor (beta sudhakar)] 100 mg PO BID 04/05/18 Primary Care Physician: Bhupendra Oliveira MD [Primary Care Provider] - Please follow up with your Primary Care Physician in: in 2-3 days Please Follow Up With: [facility] for sleep study Disposition: Home Minutes spent on discharge:: 35 Patient Condition:: Stable Medical Necessity - Tobacco Use Smoking Status: Former smoker Tobacco Use: Non-smoker Meaningful Use Info Meaningful Use Diagnoses (Choose all that apply): None applicable Code Visit Inpatient E&M: 35557 Disch Hosp
[2018-04-07] MEDS: Aspirin 81 MG TAB.CHEW PO (09:18)
[2018-04-07] MEDS: Insulin Lispro 100 UNIT/ML INSULN.PEN 14 UNIT SC (09:19)
[2018-04-07] MEDS: Ferrous Gluconate 325 MG Tablet PO (09:19)
[2018-04-07] MEDS: dilTIAZem CD 180 MG Capsule PO (09:21)
[2018-04-07] MEDS: Ascorbic Acid 500 MG Tablet PO (09:21)
[2018-04-07] MEDS: DULoxetine Hcl 60 MG Capsule PO (09:22)
[2018-04-07] MEDS: APIXABAN 2.5 MG TABLET PO (09:22)
[2018-04-07] MEDS: Glucerna Shake 120 ML LIQUID PO (09:22)
[2018-04-07] MEDS: Fluticasone 0.05% 1 SPRAY NASAL.SRY 2 SPRAY NASAL (09:22)
[2018-04-07] MEDS: Furosemide 40 MG Tablet PO (09:22)
[2018-04-07] MEDS: Pantoprazole Sodium 20 MG Tablet PO (09:23)
[2018-04-07] MEDS: Senna Tablet 1 TABLET PO (09:23)
[2018-04-07] MEDS: Metoprolol Tartrate 100 MG Tablet PO (09:23)
[2018-04-07] MEDS: guaiFENesin/D-Methorphan TAB.SR.12H 1 TABLET PO (09:26)
[2018-04-07] MEDS: Isosorbide Mononitrate 60 MG Tablet 90 MG PO (09:26)
--- NOTE | 2018-04-07 11:20 | CASEMGMT ---
Sandi, pt's CM at [facility], updated on pt's re-scheduled sleep study at this time, voices understanding. Magui SANTOS CM
--- NOTE | 2018-04-08 16:06 | CASEMGMT ---
TOM ROCHA Discharge F/U Phone Call LACDonato: 14 Strata: 4 Discharge date: 04/07/18 Call date: 04/08/18 Call time: [id number] Duration: Admission Dx: Hypoglycemia, AMS Pt states has been 'very tired' since discharge but took a nap today and has been feeling better. Pt states no questions regarding medications or discharge instructions at this time. Pt states that Sandi her CM at [facility] already called to check in on her today and she states that she was scheduled for f/u today but Sandi changed appt to 04/13/18. Pt states that she is also planning on keeping sleep study scheduled for 04/13/18. Pt states only suggestion for [facility] at this time is that she wishes that her bed linens would have been changed during her visit. Pt states that 'all the nurses and aides were so good!' Pt voices no further questions/concerns/needs at this time. SStaten TOM ROCHA
== END 2018-04-07 12:29 | disposition home or self-care (01) | DRG 637 ==
LOC: ED 16:11 → PCU 18:05
PROVIDERS: Admitting Provider Internal Medicine; Emergency Provider Emergency Medicine; Family Provider Family Medicine; PCP Family Medicine; Visit Provider Internal Medicine
DX: E11.649 Type 2 diabetes mellitus with hypoglycemia without coma (principal); G93.41 Metabolic encephalopathy; J96.22 Acute and chronic respiratory failure with hypercapnia; E66.2 Morbid (severe) obesity with alveolar hypoventilation; Z68.41 Body mass index [BMI] 40.0-44.9, adult; I25.10 Atherosclerotic heart disease of native coronary artery without angina pectoris; I48.0 Paroxysmal atrial fibrillation; Z87.440 Personal history of urinary (tract) infections; E03.9 Hypothyroidism, unspecified; G47.33 Obstructive sleep apnea (adult) (pediatric); I10 Essential (primary) hypertension; Z79.899 Other long term (current) drug therapy; E78.5 Hyperlipidemia, unspecified; K21.9 Gastro-esophageal reflux disease without esophagitis; Z99.81 Dependence on supplemental oxygen; Z98.61 Coronary angioplasty status; J44.9 Chronic obstructive pulmonary disease, unspecified; E87.6 Hypokalemia; Z79.4 Long term (current) use of insulin; Z79.01 Long term (current) use of anticoagulants
CPT/HCPCS: 36415; 36600; 70450; 71045; 80048; 80053; 80307; 80320; 81001; 82803; 82962; 83605; 84484; 85025; 93005; 94002; 94003; 94640; 97162; 97166; 97530; 97535; 99285; P9612; A4216; G0480; J1610

== ENCOUNTER → 2018-04-13 22:41 | Outpatient (CLI) | payer MEDICARE, SELFPAY | PROVIDERS: Family Provider Family Medicine; PCP Family Medicine; Visit Provider Family Medicine | DX: G47.33 Obstructive sleep apnea (adult) (pediatric) (principal) | CPT/HCPCS: 95811 ==

== ENCOUNTER 2018-05-17 12:33 | Inpatient (IN) | payer MEDICARE, SELFPAY ==
[2018-05-17] VITALS (14 sets, daily range): BP systolic 95–130; BP diastolic 59–75; PULSE 58–89; RESP 14–23; TEMP 36.6–37; O2SAT 23–98; BMI 34.9; BMI 38.4
[2018-05-17 13:17] LABS: Absolute Lymphocyte Count 1.14 X10^3/ul (0.83-4.51); Absolute Neutrophil Count 5.3 X10^3/uL (2.0-7.7); Basophil# 0.02 X10^3/uL; Basophil% 0.3 % (0-1); Eosinophil# 0.31 X10^3/uL; Hematocrit 41.5 % (37-47); Lymphocyte # 1.14 X10^3/ul (4.0); Lymphocyte % 14.8 % (19-41); Mean Corp Hgb Conc 31.3 g/gl (32-36); Mean Corpuscular Hgb 29.1 pg (27.0-32.0); Mean Platelet Vol. 10.4 fl (6.2-12.0); Monocyte% 11.7 % (0-10); Neutrophil # 5.32 X10^3/uL (2.7-7.7); Neutrophil % 68.9 % (47-70); Platelet Count 208 K/mm3 (150-450); RBC Distribution Width CV 14.9 % (11.6-14.6); RBC Distribution Width SD 49.7 fl (35.1-43.9); Red Blood Count 4.46 M/mm3 (4.2-5.4); White Blood Count 7.7 K/mm3 (4.4-11.0)
[2018-05-17 13:18] LABS: POSITIVE COUNT NO; POSITIVE DIFFERENTIAL NO; POSITIVE MORPHOLOGY NO
[2018-05-17 13:24] LABS: International Normalized Ratio 1.3
[2018-05-17 13:25] LABS: Partial Thromboplast Time 33.2 Seconds (24.1-36.2)
--- NOTE | 2018-05-17 13:28 | ED.VISSUMM ---
- ER Visit Summary Date of Service: 05/17/18 Chief Complaint: Possible stroke History of Present Illness: The patient is a 63 F who presents with difficulty speaking that began today. Patient was seen at 10:30 AM today and was talking normally. Patient took a nap and woke up at approximately 12:15 PM today and was unable to speak. EMS stated the patient was having some right-sided weakness. Patient currently does not have any focal weakness of her upper or lower extremities. Patient denies any shortness of breath. Patient denies any nausea or vomiting. Patient is aphasic and is otherwise a poor historian. Physical Examination: Vital signs showed blood pressure of 97/75 with a heart rate of 76. Respiratory rate was 23. Pulse oximeter is 97% on nasal cannula oxygen. Patient is awake, alert, but is aphasic. Pupils are equal, round, reactive to light bilaterally. Extraocular muscles are intact. Conjunctiva is clear. Oral mucosa is pink and moist. Neck is supple. Trachea is midline. There is no JVD noted. Cranial nerves II through XII are grossly intact. Strength is 5/5 bilaterally in the upper and lower extremities. There are no apparent sensory deficits noted. NIH scale is 5 due to the aphasia. The remaining physical exam is within normal limits. Test Results: CT scan of the brain was obtained and was normal. EKG showed atrial fibrillation with a rate of 77. There are no acute ST or T-wave changes noted. CBC was within normal limits. BGT was 116. INR was 1.3. Troponin was normal. Basic metabolic profile showed a mild hypokalemia of 3.3. Portable chest x-ray does not show any acute cardiopulmonary process. Arterial blood gas showed a pH of 7.458 PCO2 was 51, PO2 was 85, bicarb was 36.1, oxygen saturation was 97%. Emergency Department Course and Treatment: Case was discussed with neurology. Patient does not meet criteria for TPA because she took her Eliquis today. CTA of the brain was obtained. There is no acute aneurysm or embolism. Repeat BGT was 32. Patient was given 1 amp of D50. Case was discussed with the hospitalist. Patient will be admitted to PCU. Family understood and was agreeable with the plan. All questions were answered. Disposition: Admit to hospital Impression: Acute stroke, hypoglycemia, hypercarbia This note was generated with [employer] software. It may contain incorrect words, spelling, and punctuation that were not noted in review of the chart prior to signing ED Disposition - Plan for ED Patient: Disposition: Acute Care Hospital [facility] Chief Complaint: Neuro S/Sx Diagnosis: Aphasia, Hypoglycemia, Hypercarbia Referrals: Bhupendra Oliveira MD [Primary Care Provider] -
[2018-05-17 13:33] LABS: Anion Gap 11 (5-15); BUN 9 mg/dL (7-18); BUN/Creat Ratio 11.2 RATIO (10-20); Calcium,Total 8.6 mg/dL (8.5-10.1); Chloride 103 mmol/L (98-107); Creatinine, Serum 0.81 mg/dL (0.55-1.02); EST Glomerular Filtration Rate 76 mL/min (>60); Est Glom Filt Rate - Afr Amer 92 mL/min (>60); Estimated Creatinine Clearance 61.39 ml/min; Glucose 78 mg/dL (74-106); Potassium 3.3 mmol/L (3.5-5.1); Sodium Level 145 mmol/L (136-145)
--- NOTE | 2018-05-17 14:27 | ED.RN ---
pt arrives with stroke like s/s. pt takes Eliquis. after many attempts to reach family member that cares for the patient family was unsuccessful. family traveled back to resident to gather home medication packet. today's packet was not located on her pill pack.
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
[2018-05-17 15:00] LABS: Bedside Glucose 34 mg/dL (70-110)
--- NOTE | 2018-05-17 15:00 | NURSING ---
CALLED REPORT TO [facility] IN ER-[facility] TO SEND PT.
[2018-05-17] MEDS: Dextrose 50%-Water 25 GM/50 ML DISP.SYRIN IV (15:02)
--- NOTE | 2018-05-17 15:12 | PCM.CONS.GEN ---
Reason for Consult Date of Consultation: 05/17/18 Reason for Consultation: Stroke team History of Present Illness: The patient is a 63 year old who was normal at about 1030 this morning, laid down for a nap, awoke around 1130 with language abnormality and was brought to the emergency department. In the emergency department she was found to have language abnormality and the stroke team was called. I discussed this with the ER physician. It was discovered that she had atrial fibrillation and had taken her Eliquis today. It was felt to be a contraindication for TPA. CTA of the head was performed which was unremarkable. CT of the brain was also unremarkable. No further history is available. Past Medical History Past Medical History (Chronic Problems): Chronic Problems Paroxysmal A-fib (Chronic) Diabetes mellitus type 2 in obese (Chronic) Coronary arteriosclerosis (Chronic) cath 05/2015 mild-moderate disease medical therapy recommended Hypothyroidism (Chronic) Hyperlipemia (Chronic) GERD (gastroesophageal reflux disease) (Chronic) Hypertension (Chronic) COPD (chronic obstructive pulmonary disease) (Chronic) Chronic respiratory insufficiency (Chronic) On home oxygen at night S/P PTCA (percutaneous transluminal coronary angioplasty) (Chronic) PARESH (obstructive sleep apnea) (Chronic) Allergies ciprofloxacin [From Cipro] Allergy (Verified 05/17/18 14:15) Hives latex Allergy (Verified 05/17/18 14:15) matos me niacin [From Niaspan Extended-Release] Allergy (Verified 05/17/18 14:15) Hives ondansetron [From Zofran] Allergy (Verified 05/17/18 14:15) Unknown Xanthines Allergy (Verified 05/17/18 14:15) Unknown Penicillins Adverse Reaction (Mild, Verified 05/17/18 14:15) Itching/redness orphenadrine citrate [From Norgesic] Adverse Reaction (Verified 05/17/18 14:15) groggy medical tape Adverse Reaction (Uncoded 05/17/18 14:15) blisters Home Medications: Ambulatory Orders Medication Instructions Recorded Albuterol Inhaler [Ventolin Hfa] 2 puff INHALATION Q4H PRN PRN 02/03/18 Aspirin [Aspirin, Baby] 81 mg PO DAILY@0800 02/03/18 Atorvastatin Calcium [Lipitor] 40 mg PO QHS 02/03/18 Diltiazem HCl [Cartia Xt] 180 mg PO DAILY 02/03/18 Docusate Sodium [Stool Softener] 100 mg PO DAILY PRN PRN 02/03/18 Duloxetine Hcl [Cymbalta] 60 mg PO DAILY 02/03/18 Ferrous Gluconate 325 mg PO DAILY@0800 02/03/18 Furosemide [Lasix] 40 mg PO BIDLX 02/03/18 Insulin Glargine,Hum.rec.anlog 56 unit SQ BID 02/03/18 [Lantus] Insulin Lispro [Humalog KwikPen] 22 unit SQ LUNCH 02/03/18 Insulin Lispro [Humalog KwikPen] 24 unit SQ DINNER 02/03/18 Insulin Lispro [Humalog] 14 unit SQ BREAKFAST 02/03/18 Isosorbide Mononitrate [Imdur] 90 mg PO DAILY 02/03/18 Levothyroxine [Synthroid] 100 mcg PO DAILY 02/03/18 Metformin HCl [Metformin HCl ER] 1,000 mg PO BID 02/03/18 Ascorbic Acid [Vitamin C] 500 mg PO DAILY@0800 05/17/18 Metoprolol Tartrate [Lopressor] 100 mg PO BID 05/17/18 Omeprazole [Prilosec] 20 mg PO DAILY 05/17/18 Pregabalin [Lyrica] 100 mg PO TID 05/17/18 Sennosides [Claudia-Ramila] 8.6 mg PO BID 05/17/18 Surgical History: angioplasty, cholecystectomy, herniorrhaphy, hysterectomy, - - tubal ligation. Psychiatric History: No pertinent psych hx LIQUID YEAST SUPERVISOR History: No pertinent LIQUID YEAST SUPERVISOR history Smoking Status: Former smoker - *Family History Maternal History Items: No pertinent history Paternal History Items: Heart Disease, Stroke - age 62 Offspring History Items: No pertinent history - 5 children, 32 grand children and great grandchildren Review of Systems Unable to obtain accurate/complete ROS d/t: The patient is hypersomnolent. Patient Problems: Active and Suspected Problems Acute metabolic encephalopathy (Acute) Objective: The patient appears to be hypersomnolent on examination. I am able to arouse her briefly. She is able to tell me her name There is no facial asymmetry. Pupils are equal and reflective bilaterally visual movements are intact . She withdraws and grimaces to noxious stimuli symmetrically. She is able to hold her hands off of the bed without drift bilaterally and is able to hold her legs up off the bed bilaterally without drift She squeezes and releases to command symmetrically. - Physical Exam Vital Signs Temp Pulse Resp BP Pulse Ox 37.0 C 58 L 19 H 114/61 98 05/17/18 12:54 05/17/18 15:10 05/17/18 15:10 05/17/18 15:10 05/17/18 15:10 Current Home Med List Medication Instructions Recorded Confirmed Type Albuterol Inhaler [Ventolin Hfa] 2 puff INHALATION Q4H PRN PRN 02/03/18 05/17/18 History Aspirin [Aspirin, Baby] 81 mg PO DAILY@0800 02/03/18 05/17/18 History Atorvastatin Calcium [Lipitor] 40 mg PO QHS 02/03/18 05/17/18 History Diltiazem HCl [Cartia Xt] 180 mg PO DAILY 02/03/18 05/17/18 History Docusate Sodium [Stool Softener] 100 mg PO DAILY PRN PRN 02/03/18 05/17/18 History Duloxetine Hcl [Cymbalta] 60 mg PO DAILY 02/03/18 05/17/18 History Ferrous Gluconate 325 mg PO DAILY@0800 02/03/18 05/17/18 History Furosemide [Lasix] 40 mg PO BIDLX 02/03/18 05/17/18 History Insulin Glargine,Hum.rec.anlog 56 unit SQ BID 02/03/18 05/17/18 History [Lantus] Insulin Lispro [Humalog KwikPen] 22 unit SQ LUNCH 02/03/18 05/17/18 History Insulin Lispro [Humalog KwikPen] 24 unit SQ DINNER 02/03/18 05/17/18 History Insulin Lispro [Humalog] 14 unit SQ BREAKFAST 02/03/18 05/17/18 History Isosorbide Mononitrate [Imdur] 90 mg PO DAILY 02/03/18 05/17/18 History Levothyroxine [Synthroid] 100 mcg PO DAILY 02/03/18 05/17/18 History Metformin HCl [Metformin HCl ER] 1,000 mg PO BID 02/03/18 05/17/18 History Ascorbic Acid [Vitamin C] 500 mg PO DAILY@0800 05/17/18 05/17/18 History Metoprolol Tartrate [Lopressor] 100 mg PO BID 05/17/18 05/17/18 History Omeprazole [Prilosec] 20 mg PO DAILY 05/17/18 05/17/18 History Pregabalin [Lyrica] 100 mg PO TID 05/17/18 05/17/18 History Sennosides [Claudia-Ramila] 8.6 mg PO BID 05/17/18 05/17/18 History Laboratory Results - last 24 hr 05/17/18 05/17/18 05/17/18 13:09 13:09 13:09 WBC 7.7 RBC 4.46 Hgb 13.0 Hct 41.5 MCV 93.0 MCH 29.1 MCHC 31.3 L RDW 14.9 H RDW Differential 49.7 H Plt Count 208 MPV 10.4 Immature Gran % (Auto) 0.300 Neut % (Auto) 68.9 Lymph % (Auto) 14.8 L Rush % (Auto) 11.7 H Eos % (Auto) 4.0 Baso % (Auto) 0.3 Absolute Neuts (auto) 5.3 Absolute Lymphs (auto) 1.14 Total Counted Not Reportable PT 16.0 H INR 1.3 APTT 33.2 Sodium 145 Potassium 3.3 L Chloride 103 Carbon Dioxide 31.0 Anion Gap 11 BUN 9 Creatinine 0.81 Estim Creat Clear Calc 61.39 Est GFR (MDRD) Af Amer 92 Est GFR (MDRD) Non-Af 76 BUN/Creatinine Ratio 11.2 Glucose 78 Calcium 8.6 Troponin I < 0.015 POC Glucose 05/17/18 14:55 WBC RBC Hgb Hct MCV MCH MCHC RDW RDW Differential Plt Count MPV Immature Gran % (Auto) Neut % (Auto) Lymph % (Auto) Rush % (Auto) Eos % (Auto) Baso % (Auto) Absolute Neuts (auto) Absolute Lymphs (auto) Total Counted PT INR APTT Sodium Potassium Chloride Carbon Dioxide Anion Gap BUN Creatinine Estim Creat Clear Calc Est GFR (MDRD) Af Amer Est GFR (MDRD) Non-Af BUN/Creatinine Ratio Glucose Calcium Troponin I POC Glucose 34 L* Assessment/Plan All Active Problems Mental status alteration (Acute) Acute on chronic respiratory failure with hypoxia and hypercapnia (Acute) COPD exacerbation (Acute) Possible pneumonia (Acute) Atrial fibrillation with RVR (Acute) Hypoglycemia (Acute) Acute metabolic encephalopathy (Acute) COPD with moderate acute bronchitis (Acute) Acute hypoglycemia (Acute) Abnormal nuclear stress test (Resolved) Pneumonia (Resolved) Septic shock (Resolved) Impression: The patient's examination is consistent with hypersomnolence. This may be on the basis of her low blood sugar. CT and CTA of the head were both reviewed and are normal. Recommend further evaluation for metabolic causes. Recommend MRI of the brain and MRA of the head and neck. Continue Eliquis.
[2018-05-17 17:01] LABS: Bedside Glucose 73 mg/dL (70-110)
[2018-05-17] MEDS: Potassium Chloride 40 MEQ in Dextrose 5%/0.9% NaCl 1,000 ML 100 MEQ IV (17:21)
[2018-05-17 17:45] LABS: Allen Test POS; Base Excess 10 mmol/L (-2 to +2); Bicarbonate 33.9 mmol/L (22-26); Blood Gas Specimen Type ART; EPAP 5; FI02 30; IPAP 10; PO2 91 mmHG (75-100); RR 12; SITE L Radial; SO2 97 % (95-99); Time Given 1741; Total Carbon Dioxide 35 mmol/L; pCO2 48.9 mmHg (35-45); pH 7.45 (7.35-7.45)
[2018-05-17 21:35] LABS: Bedside Glucose 98 mg/dL (70-110)
[2018-05-18] VITALS (12 sets, daily range): BP systolic 104–130; BP diastolic 44–75; PULSE 62–121; RESP 14–18; TEMP 36.6–37; O2SAT 96–99
[2018-05-18 00:51] LABS: Bedside Glucose 98 mg/dL (70-110)
[2018-05-18] MEDS: Pregabalin 50 MG Capsule 100 MG PO ×2 (05:29→13:05)
[2018-05-18] MEDS: Levothyroxine 100 MCG Tablet PO (05:29)
[2018-05-18] MEDS: Atorvastatin Calcium 40 MG Tablet PO (05:29)
[2018-05-18 05:52] LABS: Anion Gap 9 (5-15); BUN 12 mg/dL (7-18); BUN/Creat Ratio 17.7 RATIO (10-20); Calcium,Total 8.3 mg/dL (8.5-10.1); Chloride 105 mmol/L (98-107); Creatinine, Serum 0.68 mg/dL (0.55-1.02); EST Glomerular Filtration Rate 93 mL/min (>60); Est Glom Filt Rate - Afr Amer 113 mL/min (>60); Estimated Creatinine Clearance 66.97 ml/min; Glucose 80 mg/dL (74-106); Magnesium 1.7 mg/dL (1.6-2.6); Potassium 3.8 mmol/L (3.5-5.1); Sodium Level 149 mmol/L (136-145)
[2018-05-18 06:55] LABS: Bedside Glucose 93 mg/dL (70-110)
[2018-05-18] MEDS: Ferrous Gluconate 325 MG Tablet PO (08:15)
[2018-05-18] MEDS: Aspirin 81 MG TAB.CHEW PO (08:15)
[2018-05-18] MEDS: Ascorbic Acid 500 MG Tablet PO (08:15)
[2018-05-18] MEDS: dilTIAZem CD 180 MG Capsule PO (08:16)
[2018-05-18] MEDS: Pantoprazole Sodium 20 MG Tablet PO (08:16)
[2018-05-18] MEDS: Metoprolol Tartrate 100 MG Tablet PO (08:16)
--- NOTE | 2018-05-18 11:08 | CASEMGMT ---
Per Kiran HSIEH, pt still does not have Bipap at home and she needs this set up prior to discharge. Pt had sleep study completed 04/13/18 here at [facility]. Call to pt's [facility] CM, Sandi, and she states that [facility] was faxed order for bipap after pt was seen several weeks ago in f/u by [facility] pulmonology. She states that they had faxed info to [facility] but [facility] still had not filled order. Call to Yelena and per Hilda, she just received needed info from [facility] and she will be a stat order on pt's bipap. She took this RN CM's contact info and states will let me know when bipap ready. Pt to be updated when seen by this RN CM for CM assessment. Magui SANTOS CM
--- NOTE | 2018-05-18 11:33 | CASEMGMT ---
BLAKE spoke with patient about going somewhere short term for rehab. She is adamant she is going home. She said she has to pack her belongings as she is moving out the end of the week. BLAKE asked her if her senior case manager knows she is being evicted. She said, She should she knows everything else. BLAKE called [facility] and let Yvon Thacker on the coverage line know patient was admitted and will be d/c today. BLAKE also spoke with Keara Monte, patient's senior case manager with [employer] and let her know above. She was not aware that patient was being evicted. Plan:d/c home with resumption of [employer] services. Charley ROLAND MSW
--- NOTE | 2018-05-18 11:44 | NURSING ---
off floor to MRI
[2018-05-18 12:20] LABS: Allen Test POS; Base Excess 12 mmol/L (-2 to +2); Bicarbonate 36.1 mmol/L (22-26); Blood Gas Specimen Type ART; O2 Delivery Device Nasal Can; PO2 85 mmHG (75-100); SITE L Radial; SO2 97 % (95-99); Time Given 1445; Total Carbon Dioxide 38 mmol/L; pH 7.46 (7.35-7.45)
[2018-05-18] MEDS: Isosorbide Mononitrate 60 MG Tablet PO (12:58)
[2018-05-18] MEDS: Senna Tablet 1 TABLET PO (12:59)
[2018-05-18] MEDS: Insulin Lispro 100 UNIT/ML INSULN.PEN SQ ×2 (13:05→16:51)
[2018-05-18 13:06] LABS: Bedside Glucose 255 mg/dL (70-110)
--- NOTE | 2018-05-18 13:27 | CASEMGMT ---
This RN CM received call back from [facility] at [facility] and she states that pt's bipap has been approved and that they will bring to pt here at hospital and instruct and they then will f/u with pt in a few days at her home. Pt updated during CM assessment, voices understanding. Magui SANTOS CM
--- NOTE | 2018-05-18 13:37 | NURSING ---
to radiology for swallow test
--- NOTE | 2018-05-18 13:55 | CASEMGMT ---
This RN CM to room to complete CM assessment and pt is out of the dept at testing at this time. This RN CM will attempt again later. SStaten RN CM
--- NOTE | 2018-05-18 14:00 | SP.MBSS_ITS ---
PRIMARY / SECONDARY DIAGNOSIS: dysphagia (R13.10) REFERRING PHYSICIAN: Dr. Yvon oHgan MD CURRENT DIET: regular-soft textures, thin liquids DENTITION: edentulous MENTAL STATUS: sufficient for participation RESPIRATORY STATUS: O2 at 2L/min via nasal cannula PREVIOUS MODIFIED BARIUM SWALLOW STUDY: 03/27/2016 MBS revealed moderate oropharyngeal dysphagia with SILENT aspiration of thin liquids. REASON FOR REFERRAL: Patient is a 63 year old female referred for a modified barium swallow (MBS) study to objectively assess the Patients oropharyngeal swallow function under fluoroscopy to the Patients prior history of silent aspiration identified under fluoroscopy. ADDITIONAL OBJECTIVE ASSESSMENT RESULTS: 05/18/2018 MRI revealed no MRI evidence of acute or subacute ischemic infarct; o MRI evidence of remote cortical-based ischemic infarct or old lacunar cystic infarct; few subcortical white matter T2 FLAIR hyperintensity foci in the right cerebral hemisphere and in the pontine tegmentum are presumably chronic white matter ischemic changes. MEDICAL HISTORY: Chronic obstructive pulmonary disease, chronic respiratory insufficiency requiring home oxygen at night, obstructive sleep apnea, gastroesophageal reflux disease, paroxysmal atrial fibrillation, coronary arteriosclerosis status post catheterization (05/2015), status post percutaneous transluminal coronary angioplasty, hypertension, type II diabetes mellitus, hypothyroidism, hyperlipemia STUDY FINDINGS: Patient participated in a Modified Barium Swallow (MBS) study on 05/18/2018. Dr. Montejo was the radiologist present for this evaluation. This study was recorded in the lateral view and images were sent to PACs for storage. The following consistencies were presented to this patient for analysis of oropharyngeal swallow function: thin liquids, pudding, Patient declined trials of a regular textured, Jahaira Doone cookie due to anticipated mastication issues associated with edentulous status. Results of the MBS are as follows: PENETRATION / ASPIRATION SCALE (ARORA): 1 = does not enter airway 2 = enters airway/above vocal folds/ejected 3 = enters airway/above vocal folds/not ejected 4 = enters airway/contacts vocal folds/ejected 5 = enters airway/contacts vocal folds/not ejected 6 = enters airway/below vocal folds/ejected 7 = enters airway/below vocal folds/not ejected despite effort 8 = enters airway/below vocal folds/no effort PENETRATION / ASPIRATION SCALE (SCORE): Thin liquid - 5 mL tsp.: 1 Thin liquids via cup (single sip): 3 Thin liquids via cup (single sip): 2 Thin liquids via cup (single sip): 2 Thin liquids via cup (single sip): 2 Thin liquids via cup (chin tuck): 3 Thin liquids via cup (chin tuck): 3 Pudding via spoon: 1 Regular textured cookie: NA Thin liquids via straw: 2 IMPRESSION: DIAGNOSIS: mild to moderate oropharyngeal dysphagia (R13.12) ORAL PHASE CHARACTERIZED BY: LABIAL SEAL: no labial escape TONGUE CONTROL DURING BOLUS MANIPULATION: cohesive bolus between tongue to palatal seal BOLUS PREPARATION / MASTICATION: Patient politely declined trials of regular textures due to anticipated mastication inefficiency associated with edentulous status BOLUS TRANSPORT / LINGUAL MOTION: brisk tongue motion ORAL RESIDUE: trace residue lining oral structures PHARYNGEAL PHASE CHARACTERIZED BY: INITIATION OF PHARYNGEAL SWALLOW: bolus head in pyriforms at first hyoid excursion SOFT PALATE ELEVATION: no bolus between soft palate and pharyngeal wall LARYNGEAL ELEVATION: complete superior movement of thyroid cartilage with complete approximation of arytenoids cartilage to epiglottic petiole ANTERIOR HYOID EXCURSION: partial anterior movement EPIGLOTTIC MOVEMENT: complete epiglottic inversion LARYNGEAL VESTIBULE CLOSURE AT HEIGHT OF SWALLOW: incomplete laryngeal vestibule closure with narrow column of air/contrast in laryngeal vestibule PHARYNGEAL STRIPPING WAVE: pharyngeal stripping wave present / complete PHARYNGOESOPHAGEAL SEGMENT OPENING: complete distension and complete duration with no obstruction of flow TONGUE BASE RETRACTION: trace column of contrast between tongue base and posterior pharyngeal wall PHARYNGEAL RESIDUE: trace residue within or on pharyngeal structures ESOPHAGEAL PHASE CHARACTERIZED BY: ESOPHAGEAL BOLUS CLEARANCE IN THE UPRIGHT POSITION: could not view EFFECTS OF TREATMENT STRATEGIES ATTEMPTED: Chin tuck posture = ineffective Reduced bolus size = moderately effective DIET TEXTURE RECOMMENDATIONS: Will recommend a regular-soft textured, thin liquid diet. COMPENSATORY STRATEGIES RECOMMENDED: Cut into bite sized pieces, reduced bolus volume, reduced rate of intake, seated upright at 90 degrees during PO intake, remain upright for 30-60 minutes post meal (GERD precaution) INTERPRETATION OF RESULTS: Patient presents with mild to moderate oropharyngeal dysphagia (R13.12) likely secondary to a combination of chronic obstructive pulmonary disease and secondary presbyphagia. Oral preparatory phase marked by mastication inefficiency attributed to the Patients edentulous status. Oral transit phase unremarkable. Pharyngeal phase marked by impaired pharyngeal swallow onset timing resulting in suboptimal bolus location upon swallow onset; and reduced closure of the airway during deglutition attributed to a mild reduction anterior hyoid excursion resulting in inconsistent laryngeal vestibule closure / pressure with inconsistent laryngeal vestibule pressure generated to expel penetrated material; all pharyngeal phase deficits contributing to prandial transient penetration of thin liquids. Pharyngeal penetration exacerbated with execution of chin tuck posture. No aspiration appreciated throughout trials, unable to definitively rule out silent aspiration. RECOMMENDATIONS: Would consider continued skilled speech-language intervention targeting continued diet texture management; training and implementation of recommended compensatory strategies; and Patient and caregiver education regarding dysphagia associated with chronic obstructive pulmonary disease. ADDITIONAL COMMENTS/RECOMMENDATIONS: Results and recommendations were discussed with the Patient immediately following MBS completion, with the Patient verbalizing understanding and agreement with all recommendations and education provided. IMAGE COUNT: [id number] Luis Alberto Kothari M.A., CCC-COMMERCIAL ESCROW ASSISTANT [facility] Speech-Language Pathology Department [email or web address]
[2018-05-18 15:06] LABS: Bedside Glucose 116 mg/dL (70-110)
--- NOTE | 2018-05-18 15:07 | NURSING ---
ultrasound in progress
[2018-05-18] MEDS: APIXABAN 2.5 MG TABLET PO (15:19)
--- NOTE | 2018-05-18 15:50 | CASEMGMT ---
Addendum entered by Joyce Gabriel 05/18/18 16:40: Message left with Sandi at [facility] to update her on all at this time. Magui SANTOS CM Original Note: TOM ROCHA chart review-see CM assessment completed by Yobany SANTOS CM on 04/07/18. Pt states no changes to assessment at this time except for the fact that she is being evicted from her housing d/t sons. Pt states she plans to live with sister until [place]. Pt is set up with [employer] with Josette Monte as her CM. Pt also has Sandi Silvestre, as [facility] CM, and per Sandi, their SW was working on pt getting that set up. Yelena is at bedside at this time with instructions and bipap and pt states she plans on wearing it. Yelena rep states that they will f/u with pt on friday or in her home to make sure pt is using properly and has no more questions/concerns. Pt does voice concern about whether the handheld shower at her current home is hers to keep and this TOM ROCHA advised her that we would notify Josette to see if she could f/u on this for pt thru [employer], voices understanding. Pt voices no further questions/concerns/needs at this time. Magui SANTOS CM
[2018-05-18 16:10] LABS: Bedside Glucose 274 mg/dL (70-110)
--- NOTE | 2018-05-18 16:51 | PCM.DC ---
- Discharge Diagnoses Current Active Problems: Current Active and Chronic Problems Acute metabolic encephalopathy (Acute) Paroxysmal A-fib (Chronic) You will use the following diet at home:: Calorie/Carbohydrate Controlled (specify 1200, 1400, etc) - 1800 harmeet / day, Cardiac Your food should be the consistency of: Regular Your liquids should be the consistency of: Regular/Thin Discharge Activity: Return to Normal Activity Additional Activity Instructions:: Must continue to use bipap at night as instructed today. Allergies/Adverse Reactions: Allergies ciprofloxacin [From Cipro] Allergy (Verified 05/17/18 14:15) Hives latex Allergy (Verified 05/17/18 14:15) matos me niacin [From Niaspan Extended-Release] Allergy (Verified 05/17/18 14:15) Hives ondansetron [From Zofran] Allergy (Verified 05/17/18 14:15) Unknown Xanthines Allergy (Verified 05/17/18 14:15) Unknown Penicillins Adverse Reaction (Mild, Verified 05/17/18 14:15) Itching/redness orphenadrine citrate [From Norgesic] Adverse Reaction (Verified 05/17/18 14:15) groggy medical tape Adverse Reaction (Uncoded 05/17/18 14:15) blisters Medications to take at Discharge Albuterol Inhaler [Ventolin Hfa] 2 puff INHALATION Q4H PRN PRN 02/03/18 Aspirin [Aspirin, Baby] 81 mg PO DAILY@0800 02/03/18 Atorvastatin Calcium [Lipitor] 40 mg PO QHS 02/03/18 Diltiazem HCl [Cartia Xt] 180 mg PO DAILY 02/03/18 Docusate Sodium [Stool Softener] 100 mg PO DAILY PRN PRN 02/03/18 Duloxetine Hcl [Cymbalta] 60 mg PO DAILY 02/03/18 Ferrous Gluconate 325 mg PO DAILY@0800 02/03/18 Furosemide [Lasix] 40 mg PO BIDLX 02/03/18 Insulin Lispro [Humalog KwikPen] 22 unit SQ LUNCH 02/03/18 Insulin Lispro [Humalog KwikPen] 24 unit SQ DINNER 02/03/18 Insulin Lispro [Humalog] 14 unit SQ BREAKFAST 02/03/18 Isosorbide Mononitrate [Imdur] 90 mg PO DAILY 02/03/18 Levothyroxine [Synthroid] 100 mcg PO DAILY 02/03/18 Metformin HCl [Metformin HCl ER] 1,000 mg PO BID 02/03/18 Apixaban [Eliquis] 2.5 mg PO 05/17/18 Ascorbic Acid [Vitamin C] 500 mg PO DAILY@0800 05/17/18 Metoprolol Tartrate [Lopressor] 100 mg PO BID 05/17/18 Omeprazole [Prilosec] 20 mg PO DAILY 05/17/18 Pregabalin [Lyrica] 100 mg PO TID 05/17/18 Sennosides [Claudia-Ramila] 8.6 mg PO BID 05/17/18 Insulin Glargine [Lantus SoloStar Pen] 26 units SC BID pen 05/18/18 Primary Care Physician: Bhupendra Oliveira MD [Primary Care Provider] - Test Results: Test results from this visit will be discussed in further detail at your follow-up appointment, if applicable. Please Follow Up With: Bhupendra Oliveira MD Proposed Discharge Date: 05/18/18
--- NOTE | 2018-05-18 16:55 | PCM.DC.SUM ---
<Vinay Bear - Last Filed: 05/18/18 17:04> Discharge Date and Diagnosis - Problem List Patient Problems: Active and Suspected Problems Acute metabolic encephalopathy (Acute) Date of Admission: 05/17/18 Date of Discharge: 05/18/18 - Primary Discharge Diagnosis Active and Suspected Problems Acute metabolic encephalopathy (Acute) 2/2 Hypercarbia, hypoglycemia PARESH, noncompliant with bipap at home Mild to moderate oropharyngeal dysphagia Acute CVA ruled out. Chronic hypoxic respiratory failure DMt2 with hypoglycemia GERD HLD HTN COPD Paroxysmal Afib CAD prior PTCA - Secondary Discharge Diagnosis Chronic Problems Paroxysmal A-fib (Chronic) Diabetes mellitus type 2 in obese (Chronic) Coronary arteriosclerosis (Chronic) cath 05/2015 mild-moderate disease medical therapy recommended Hypothyroidism (Chronic) Hyperlipemia (Chronic) GERD (gastroesophageal reflux disease) (Chronic) Hypertension (Chronic) COPD (chronic obstructive pulmonary disease) (Chronic) Chronic respiratory insufficiency (Chronic) On home oxygen at night S/P PTCA (percutaneous transluminal coronary angioplasty) (Chronic) PARESH (obstructive sleep apnea) (Chronic) Hospital Course and Treatment Imaging Results: 05/18/18 09:43 MRI Brain [Brain without Contrast] [MRI] Urgent 05/18/18 14:00 Cookie Swallow [Swallowing Function w/Video] [RAD] Urgent CT/Brain/Head without Contrast IMPRESSION: Chronic involutional changes of the brain. RAD/Chest 1 View IMPRESSION: Degenerative changes, as described above. No demonstrated acute cardiopulmonary process. CT/CTA Head W/WO Contrast IMPRESSION: Normal [place] without a demonstrated aneurysm or hemodynamically significant stenosis. MRI/Brain without Contrast IMPRESSION: 1. No MRI evidence of acute or subacute ischemic infarct. 2. No MRI evidence of remote cortical-based ischemic infarct or old lacunar cystic infarct. 3. Few subcortical white matter T2 FLAIR hyperintensity foci in the right cerebral hemisphere and in the pontine tegmentum are presumably chronic white matter ischemic changes. Modified Barium Swallow: INTERPRETATION OF RESULTS: Patient presents with mild to moderate oropharyngeal dysphagia (R13.12) likely secondary to a combination of chronic obstructive pulmonary disease and secondary presbyphagia. Oral preparatory phase marked by mastication inefficiency attributed to the Patients edentulous status. Oral transit phase unremarkable. Pharyngeal phase marked by impaired pharyngeal swallow onset timing resulting in suboptimal bolus location upon swallow onset; and reduced closure of the airway during deglutition attributed to a mild reduction anterior hyoid excursion resulting in inconsistent laryngeal vestibule closure / pressure with inconsistent laryngeal vestibule pressure generated to expel penetrated material; all pharyngeal phase deficits contributing to prandial transient penetration of thin liquids. Pharyngeal penetration exacerbated with execution of chin tuck posture. No aspiration appreciated throughout trials, unable to definitively rule out silent aspiration. RECOMMENDATIONS: Would consider continued skilled speech-language intervention targeting continued diet texture management; training and implementation of recommended compensatory strategies; and Patient and caregiver education regarding dysphagia associated with chronic obstructive pulmonary disease. ADDITIONAL COMMENTS/RECOMMENDATIONS: Results and recommendations were discussed with the Patient immediately following MBS completion, with the Patient verbalizing understanding and agreement with all recommendations and education provided. Consults: Anh - neuro Operations: None Procedures: None Summary of Care Provided: Physical exam on day of discharge: General: Resting comfortably NAD Psych: A/Ox3 normal affect HEENT: [place] AT NC Neck: Supple NT CV: RRR no m/t/r/g/h Resp: CTA, mildly diminished. Abd: [id number] Soft NT no guarding or rigidity Ext: DP2+= no edema Skin: W/D normal turgor Lymph/Heme: No active bleeding or adenopathy Neuro: CN2-12 intact Hospital course: The patient is a 63 year old F with hx as above who presented to the ER with increased lethargy, hypercarbia, and hypoglycemia. She has had multiple admissions for the same. She has a hx of PARESH and is supposed to be on BiPAP at home however had not yet received the machine. On prior admissions she has done very well after being admitted and having glucose corrected and being started on Bipap. She becomes very somnolent without BiPAP and her glucose drops very low as she is on high doses of insulin. She appeared to have the same this time. The family was concerned as when they found her she was slurring her speech. In the ER CXR was negative, glucose was low, CO2 was elevated on ABG, and CT brain was negative, and CTA head was negative. Neuro was consulted and felt this was 2/2 hypersomnolence but that a stroke work up should be initiated. She was admitted to PCU for tele monitoring. Her mentation improved with D50 and BiPAP. The following morning she had no complaints and wanted to go home. She was not interested in SNF placement. She was losing her home but arranged to go live with her sister. She had an MRI of the brain which was negative. She had a carotid US which was also negative. Barium swallow revealed mild to moderate oropharyngeal dysphagia and she was placed on a mechanical soft diet - she will need to continue this at discharge. Long acting insulin was cut back by 50%, but other diabetic therapies were continued. We were able to get the medical supplier to bring her the BiPAP machine her and show her how to use it. She was strongly advised on the importance of using it nightly. She was discharged home in stable condition. This patient was seen by Vinay Bear PA-C under the supervision of Doctor Edison. [] Discharge Diet: Low fat/ Low Cholesterol, 1800 Calorie Control Diet, 2000 mg Sodium Diet Discharge Activity: Return to Normal Activity Additional Activity Instructions:: Must continue to use bipap at night as instructed today. Home Medications: Medications to take at Discharge Albuterol Inhaler [Ventolin Hfa] 2 puff INHALATION Q4H PRN PRN 02/03/18 Aspirin [Aspirin, Baby] 81 mg PO DAILY@0800 02/03/18 Atorvastatin Calcium [Lipitor] 40 mg PO QHS 02/03/18 Diltiazem HCl [Cartia Xt] 180 mg PO DAILY 02/03/18 Docusate Sodium [Stool Softener] 100 mg PO DAILY PRN PRN 02/03/18 Duloxetine Hcl [Cymbalta] 60 mg PO DAILY 02/03/18 Ferrous Gluconate 325 mg PO DAILY@0800 02/03/18 Furosemide [Lasix] 40 mg PO BIDLX 02/03/18 Insulin Lispro [Humalog KwikPen] 22 unit SQ LUNCH 02/03/18 Insulin Lispro [Humalog KwikPen] 24 unit SQ DINNER 02/03/18 Insulin Lispro [Humalog] 14 unit SQ BREAKFAST 02/03/18 Isosorbide Mononitrate [Imdur] 90 mg PO DAILY 02/03/18 Levothyroxine [Synthroid] 100 mcg PO DAILY 02/03/18 Metformin HCl [Metformin HCl ER] 1,000 mg PO BID 02/03/18 Apixaban [Eliquis] 2.5 mg PO 05/17/18 Ascorbic Acid [Vitamin C] 500 mg PO DAILY@0800 05/17/18 Metoprolol Tartrate [Lopressor] 100 mg PO BID 05/17/18 Omeprazole [Prilosec] 20 mg PO DAILY 05/17/18 Pregabalin [Lyrica] 100 mg PO TID 05/17/18 Sennosides [Claudia-Ramila] 8.6 mg PO BID 05/17/18 Insulin Glargine [Lantus SoloStar Pen] 26 units SC BID pen 05/18/18 Primary Care Physician: Bhupendra Oliveira MD [Primary Care Provider] - Please follow up with your Primary Care Physician in: 1-2 weeks Please Follow Up With: Bhupendra Oliveira MD Disposition: Home Minutes spent on discharge:: 35 Patient Condition:: Stable Medical Necessity - Tobacco Use Smoking Status: Former smoker Meaningful Use Info Meaningful Use Diagnoses (Choose all that apply): None applicable <Yvon Hogan - Last Filed: 05/18/18 17:50> Discharge Date and Diagnosis - Primary Discharge Diagnosis Active and Suspected Problems Acute metabolic encephalopathy (Acute) - Secondary Discharge Diagnosis Chronic Problems Paroxysmal A-fib (Chronic) Diabetes mellitus type 2 in obese (Chronic) Coronary arteriosclerosis (Chronic) cath 05/2015 mild-moderate disease medical therapy recommended Hypothyroidism (Chronic) Hyperlipemia (Chronic) GERD (gastroesophageal reflux disease) (Chronic) Hypertension (Chronic) COPD (chronic obstructive pulmonary disease) (Chronic) Chronic respiratory insufficiency (Chronic) On home oxygen at night S/P PTCA (percutaneous transluminal coronary angioplasty) (Chronic) PARESH (obstructive sleep apnea) (Chronic) Hospital Course and Treatment Imaging Results: 05/18/18 09:43 MRI Brain [Brain without Contrast] [MRI] Urgent 05/18/18 14:00 Cookie Swallow [Swallowing Function w/Video] [RAD] Urgent Summary of Care Provided: The patient is a 63 year old F with multiple comorbidities including obstructive sleep apnea, morbid obesity with recurrent admissions admitted with altered mental status. This was felt to be secondary to metabolic encephalopathy from hypercapnia. Placed on a monitored bed did rule out acute CVA with imaging studies. Hospital course: As elicited above by Vinay Bear's note Time spent on discharge; 35 minutes Code Visit Inpatient E&M: [id number] Disch Hosp
[2018-05-18] MEDS: Insulin Lispro 100 UNIT/ML INSULN.PEN 24 UNIT SC (17:12)
--- NOTE | 2018-05-18 17:20 | NURSING ---
pt cont to be resistant to any education re chronic illness or to listen to any family concerns re her ablity to care for herself at home. she is insistent on going home
--- NOTE | 2018-05-19 09:17 | CASEMGMT ---
This RN CM placed call to Josette Monte, pt's CM, regarding handheld shower that pt was concerned about yesterday. Per Josette, she will look into and she states will give pt a call today in f/u. She states that she can help pt get if needed. She also states that pt is not actually active with [employer] any longer. [facility] SW aware, voices understanding. SStaten TOM CM
--- NOTE | 2018-05-19 16:08 | CASEMGMT ---
Addendum entered by Joyce Gabriel 05/21/18 13:02: Attempted to reach pt at this time and pt's phone is answered by her sister, Magdalena, at this time and per sister, Magdalena, pt is napping at this time. Per sister, pt has been 'doing good' since discharge and has been using bipap consistently. Sister states no questions regarding medications and discharge instructions at this time. Per sister, Yelena came out yesterday to f/u with pt regarding bipap and usage. Sister voices no further questions/concerns/needs at this time. Magui SANTOS CM Original Note: RN CM Discharge F/U Phone Call LACE: 13 Strata: 4 Discharge date: 05/18/18 Call date: 05/19/18 Call time: [id number] Attempted to reach pt without success at this time, phone is ringing busy. This RN CM will attempt at a later time. Magui SANTOS CM Admission dx: Aphasia
== END 2018-05-18 18:20 | disposition home or self-care (01) | DRG 637 ==
LOC: ED 12:44 → PCU 15:15
PROVIDERS: Admitting Provider Internal Medicine; Emergency Provider Emergency Medicine; Family Provider Family Medicine; PCP Family Medicine; Visit Provider Internal Medicine
DX: E11.649 Type 2 diabetes mellitus with hypoglycemia without coma (principal); G93.41 Metabolic encephalopathy; J96.11 Chronic respiratory failure with hypoxia; E66.01 Morbid (severe) obesity due to excess calories; Z68.34 Body mass index [BMI] 34.0-34.9, adult; I25.10 Atherosclerotic heart disease of native coronary artery without angina pectoris; E87.6 Hypokalemia; Z79.4 Long term (current) use of insulin; E03.9 Hypothyroidism, unspecified; Z95.5 Presence of coronary angioplasty implant and graft; I48.0 Paroxysmal atrial fibrillation; J44.9 Chronic obstructive pulmonary disease, unspecified; I10 Essential (primary) hypertension; E78.5 Hyperlipidemia, unspecified; K21.9 Gastro-esophageal reflux disease without esophagitis; R13.12 Dysphagia, oropharyngeal phase; G47.33 Obstructive sleep apnea (adult) (pediatric); Z91.19 Patient's noncompliance with other medical treatment and regimen; R06.89 Other abnormalities of breathing; Z99.81 Dependence on supplemental oxygen; Z87.891 Personal history of nicotine dependence
CPT/HCPCS: 36415; 36600; 70450; 70496; 70551; 71045; 74230; 80048; 82803; 82962; 83735; 84484; 85025; 85610; 85730; 92611; 93005; 93880; 94002; 99251; 99285; Q9967; A4216; G0463

== ENCOUNTER 2018-07-22 16:45 | Emergency (ER) | payer MEDICARE, SELFPAY ==
[2018-07-22 16:46] VITALS: BP 118/70; PULSE 76; RESP 24; TEMP 36.1; O2SAT 90; BMI 40.6
--- NOTE | 2018-07-22 17:00 | EKG12_ITS ---
Test Reason : SOB Blood Pressure : / mmHG Vent. Rate : 075 BPM Atrial Rate : 357 BPM P-R Int : 000 ms QRS Dur : 074 ms QT Int : 428 ms P-R-T Axes : 000 003 180 degrees QTc Int : 477 ms Atrial fibrillation Low voltage QRS Nonspecific T wave abnormality Prolonged QT Abnormal ECG Confirmed by ALETA ABRAHAM, ALVAREZ ([id number]), news videotape editor SHYANNE TERRAZAS ([id number]) on 07/29/2018 2:21:58 PM Referred By: DC Confirmed By:ALVAREZ RIVER MD
--- NOTE | 2018-07-22 17:00 | RAD_ITS ---
STUDY: X-RAY CHEST REASON FOR EXAM: Female, 63 years old. Short of breath TECHNIQUE: AP portable COMPARISON: May 17, 2018 FINDINGS: Interstitial thickening which appears most pronounced in the mid and lower lung zones greater on the left. Possibility of inflammatory changes not excluded. There is no demonstrated pleural abnormality. The heart appears mildly enlarged. Normal mediastinum and tracie. Normal visualized pulmonary arteries. Normal visualized aortic arch and descending thoracic aorta. Dorsal spine demonstrates spondylosis. Normal visualized ribs, clavicles, and shoulders. There is no demonstrated abnormality of the visualized soft tissue structures of the upper abdomen. RAD/Chest 1 View (Portable) IMPRESSION: Nonspecific interstitial thickening most pronounced in the mid and lower lung zones greater on the left Electronically Signed: John Chavez MD at 18:28 EDT , Service support ,
[2018-07-22 17:28] VITALS: O2SAT 98
[2018-07-22] MEDS: Ipratropium/Albuterol Sulfate 3 ML AMPUL.NEB INHALATION (17:28)
[2018-07-22 17:29] VITALS: PULSE 75; RESP 12
[2018-07-22 17:34] LABS: ALB/GLOB Ratio 0.7 RATIO (0.9-2.4); AST(SGOT) 15 U/L (15-37); Alanine Aminotransfer ALT/SGPT 13 U/L (13-56); Albumin, Serum 2.8 g/dL (3.2-5.0); Alkaline Phosphatase 51 U/L (45-117); Anion Gap 7 (5-15); BUN 9 mg/dL (7-18); BUN/Creat Ratio 15.1 RATIO (10-20); Calcium,Total 8.7 mg/dL (8.5-10.1); Chloride 107 mmol/L (98-107); EST Glomerular Filtration Rate 108 mL/min (>60); Est Glom Filt Rate - Afr Amer 131 mL/min (>60); Globulin 4.3 g/dL (2.2-4.2); Glucose 52 mg/dL (74-106); Lipase 42 U/L (73-393); Potassium 4.1 mmol/L (3.5-5.1); Protein, Total 7.1 g/dL (6.4-8.2); Sodium Level 144 mmol/L (136-145)
--- NOTE | 2018-07-22 17:51 | ED.VISSUMM ---
- ER Visit Summary Date of Service: 07/22/18 Chief Complaint: Sick History of Present Illness: The patient is a 63 F with multiple complaints. Patient has had intermittent diarrhea for 4 days. It started last Friday then improved and then recurred today. Nonbloody. She also had trouble breathing for the past 3 days with a cough. She is having chest pain today. She had similar symptoms in the past with pneumonia. She has a history of COPD and uses home oxygen. Also history of atrial fibrillation, sleep apnea, acid reflux, diabetes, hypertension, hyperlipidemia, among others. She is a former smoker. She does take Eliquis, aspirin and other medications. Physical Examination: Afebrile and vital signs unremarkable. The patient is speaking in full sentences and does not appear short of breath. Lungs show diminished sounds throughout all pérez. Heart is irregularly irregular. Abdomen soft and nontender. Extremities nontender with no edema. Skin normal in color. Alert and oriented. Normal strength and sensation. Test Results: EKG shows atrial fibrillation at a rate of 75 with nonspecific T wave changes. Laboratory studies and chest x-ray are pending. Emergency Department Course and Treatment: Patient was placed on a monitor and oxygen. She received a DuoNeb breathing treatment while awaiting results. Patient felt better after a DuoNeb treatment and a dose of fentanyl, 25 mcg. Workup was all fairly unremarkable. Her chest x-ray showed nonspecific interstitial thickening in the mid and lower lungs worse on the left. Hemoglobin 11.8. Glucose 52. Total bilirubin 1.3. Lipase 42. Patient was unable to provide urine and declined any further urinalysis testing. Troponin was normal. On reevaluation, the patient is feeling better. She appears well. Her vital signs are normal. Good oxygenation. I believe she is appropriate for outpatient follow-up. The patient agrees. Will prescribe doxycycline for a COPD exacerbation. She did eat here and her repeat glucose was in the 80s. She is not having any symptoms of hypoglycemia. She is able to eat and drink at home and will continue to do so. Monitor her blood sugars. Treatment Plan: Doxycycline, healthy diet, monitor blood sugars Disposition: Discharged Impression: 1. Acute bronchitis 2. Hypoglycemia This note was generated with [email or web address] software. It may contain incorrect words, spelling, and punctuation that were not noted in review of the chart prior to signing ED Disposition - Plan for ED Patient: Chief Complaint: Shortness of Breath Referrals: Bhupendra Oliveira MD [Primary Care Provider] -
[2018-07-22 18:41] LABS: Absolute Lymphocyte Count 1.16 X10^3/ul (0.83-4.51); Absolute Neutrophil Count 6.2 X10^3/uL (2.0-7.7); Basophil# 0.01 X10^3/uL; Basophil% 0.1 % (0-1); Eosinophil# 0.42 X10^3/uL; Hematocrit 37.7 % (37-47); Hemoglobin 11.8 g/dl (12.0-15.0); Lymphocyte # 1.16 X10^3/ul (4.0); Lymphocyte % 13.8 % (19-41); Mean Corp Hgb Conc 31.3 g/gl (32-36); Mean Corpuscular Hgb 29.1 pg (27.0-32.0); Mean Corpuscular Volume 93.1 fL (81-99); Mean Platelet Vol. 10.5 fl (6.2-12.0); Monocyte# 0.62 X10^3/uL; Monocyte% 7.4 % (0-10); Neutrophil # 6.17 X10^3/uL (2.7-7.7); Neutrophil % 73.5 % (47-70); POSITIVE COUNT NO; POSITIVE DIFFERENTIAL NO; POSITIVE MORPHOLOGY NO; Platelet Count 211 K/mm3 (150-450); RBC Distribution Width CV 15.2 % (11.6-14.6); Red Blood Count 4.05 M/mm3 (4.2-5.4); White Blood Count 8.4 K/mm3 (4.4-11.0)
[2018-07-22 18:46] VITALS: PULSE 68; RESP 19; O2SAT 98
--- NOTE | 2018-07-22 18:51 | ED.RN ---
PT LABS SHOW LOW GLUCOSE. PT GIVEN MEAL. SHE STATES I TOOK MY MEDICATION WITHOUT EATING. Alejandro MATHIS RN [id number]
[2018-07-22] MEDS: fentaNYL 100 MCG/2 ML Ampul 25 MCG IV (18:59)
[2018-07-22 19:00] VITALS: BP 134/82; PULSE 68; RESP 17; O2SAT 97
[2018-07-22 19:21] LABS: Bedside Glucose 83 mg/dL (70-110)
--- NOTE | 2018-07-22 19:56 | ED.RN ---
PT STATES SHE'S UNABLE TO URINATE AT THIS TIME. DR SANCHEZ AWARE.
--- NOTE | 2018-07-22 20:12 | ED.DEP ---
ED Disposition - Plan for ED Patient: Chief Complaint: Shortness of Breath Instructions: Hypoglycemia (Low Blood Sugar), Acute Bronchitis Prescriptions: Doxycycline Monohydrate 100 mg PO BID #20 cap Referrals: Bhupendra Oliveira MD [Primary Care Provider] -
[2018-07-22] MEDS: Doxycycline 100 MG CAPSULE PO (20:20)
[2018-07-22 20:24] VITALS: BP 114/69; PULSE 63; RESP 20; O2SAT 98
[2018-07-22 20:36] LABS: Bedside Glucose 118 mg/dL (70-110)
--- NOTE | 2018-07-23 10:04 | CM.ED ---
ED CALLBACK: Follow-up call placed to patient. Patient states that immediately after leaving the ER last night, she was extremely short of breath from walking to her car and into her home. She states she is fine if she's resting, but when she ambulates in the home she gets short of breath. The patient states she just finished a breathing treatment. She tells me that she is unable to fill her prescription. She lives with her sister and her sister does not have a car. She tells me that she gets to her appointments via insurance vouchers and must give notice. I encouraged patient to call Dr. Oliveira's office and schedule an appointment and ride for as soon as possible. Home health aide was present in patient's home at the time of my call and stated that she would be able to go fill the patient's prescription for her, this morning. I instructed the patient to return to the ED if she has worsening shortness of breath. Patient states understanding and agreement with plan. She denies further questions or needs at this time.
== END 2018-07-22 20:32 | disposition home or self-care (01) ==
LOC: ED 17:11
PROVIDERS: Emergency Provider Emergency Medicine; Family Provider Family Medicine; PCP Family Medicine
DX: J44.0 Chronic obstructive pulmonary disease with (acute) lower respiratory infection (principal); J20.9 Acute bronchitis, unspecified; J44.1 Chronic obstructive pulmonary disease with (acute) exacerbation; E11.649 Type 2 diabetes mellitus with hypoglycemia without coma; I48.91 Unspecified atrial fibrillation; I10 Essential (primary) hypertension; E78.5 Hyperlipidemia, unspecified; R19.7 Diarrhea, unspecified; G47.30 Sleep apnea, unspecified; K21.9 Gastro-esophageal reflux disease without esophagitis; Z79.01 Long term (current) use of anticoagulants; Z99.81 Dependence on supplemental oxygen; Z79.82 Long term (current) use of aspirin; Z79.899 Other long term (current) drug therapy; Z87.01 Personal history of pneumonia (recurrent); Z87.891 Personal history of nicotine dependence
CPT/HCPCS: 71045; 80053; 82962; 83690; 84484; 85025; 93005; 94640; 99285; A4216

== ENCOUNTER 2018-07-25 06:02 | Observation (INO) | payer MEDICARE, SELFPAY ==
[2018-07-25] VITALS (12 sets, daily range): BP systolic 101–156; BP diastolic 68–88; PULSE 60–104; RESP 18–28; TEMP 36.1–36.4; O2SAT 93–99; BMI 42.0; BMI 39.9
--- NOTE | 2018-07-25 06:07 | EKG12_ITS ---
Test Reason : SOB Blood Pressure : / mmHG Vent. Rate : 102 BPM Atrial Rate : 136 BPM P-R Int : 000 ms QRS Dur : 080 ms QT Int : 386 ms P-R-T Axes : 000 -13 119 degrees QTc Int : 503 ms Atrial fibrillation with rapid ventricular response Nonspecific ST and T wave abnormality Abnormal ECG Confirmed by ALETA ABRAHAM, ALVAREZ ([id number]), image editor SHYANNE TERRAZAS ([id number]) on 07/27/2018 3:23:33 PM Referred By: GAURANG Confirmed By:ALVAREZ RIVER MD
--- NOTE | 2018-07-25 06:13 | ED.VISSUMM ---
- ER Visit Summary Date of Service: 07/25/18 Chief Complaint: Shortness of breath History of Present Illness: The patient is a 63 F with increasing shortness of breath over the past 6 days. She has had cough with occasional green sputum. She was seen in the ER on 22 July. She improved after aerosols and was discharged on doxycycline. Patient reports no significant improvement since starting the antibiotics and intermittently feels worse. She had some mild chills tonight but no measured fever. She does report occasional nausea and diarrhea. Physical Examination: Blood pressure is 126/68, temperature 97.4, heart rate 83, respiratory rate 28, pulse ox 99% on 3 L. Patient sitting upright in bed no acute distress. Head neck examination grossly unremarkable. Heart is regular. Lung sounds are with diminished breath sounds throughout. She is tachypneic. Abdomen is soft, nontender, slightly distended. Test Results: CBC reveals a hemoglobin of 11.6. Chemistry studies are significant for glucose of 169. LFTs and lipase are normal. Troponin negative. EKG is A. fib at 102 with no acute ischemia. Portable chest x-ray shows evolving bibasilar alveolar disease. Emergency Department Course and Treatment: Patient was given cycle of aerosols along with Solu-Medrol. On repeat evaluation she has significantly improved air movement throughout but still remains slightly tachypneic. Patient has failed outpatient therapy at this point and I recommended hospitalization for aerosols, steroids, antibiotics. Patient will be given a dose of doxycycline at this time. Treatment Plan: [] Disposition: Admit Impression: COPD exacerbation, failed outpatient management This note was generated with [employer] dictation software. It may contain incorrect words, spelling, and punctuation that were not noted in review of the chart prior to signing ED Disposition - Plan for ED Patient: Chief Complaint: Shortness of Breath Referrals: Bhupendra Oliveira MD [Primary Care Provider] -
[2018-07-25] MEDS: Ipratropium/Albuterol Sulfate 3 ML AMPUL.NEB INHALATION ×4 (06:18→22:33)
[2018-07-25] MEDS: Albuterol 2.5 MG/3 ML VIAL.NEB. INHALATION ×2 (06:18)
--- NOTE | 2018-07-25 06:25 | RAD_ITS ---
STUDY: X-RAY CHEST REASON FOR EXAM: Female, 63 years old. Dyspnea and cough TECHNIQUE: Single frontal view of the chest. COMPARISON: 07/22/2018 FINDINGS: Evolving bibasilar alveolar disease. Small left pleural effusion is suspected. Stable cardiomediastinal silhouette. Normal mediastinum and tracie. Normal visualized pulmonary arteries. Normal visualized aortic arch and descending thoracic aorta. Normal visualized thoracic spine. Normal visualized ribs, clavicles, and shoulders. There is no demonstrated abnormality of the visualized soft tissue structures of the upper abdomen. RAD/Chest 1 View (Portable) IMPRESSION: Evolving bibasilar alveolar disease. Small left pleural effusion is suspected. Electronically Signed: Mukul Murray MD at 6:41 EDT Tel , Service support ,
[2018-07-25 07:19] LABS: Absolute Lymphocyte Count 1.18 X10^3/ul (0.83-4.51); Absolute Neutrophil Count 5.1 X10^3/uL (2.0-7.7); Basophil# 0.03 X10^3/uL; Basophil% 0.4 % (0-1); Eosinophil# 0.37 X10^3/uL; Hematocrit 36.7 % (37-47); Hemoglobin 11.6 g/dl (12.0-15.0); Lymphocyte # 1.18 X10^3/ul (4.0); Lymphocyte % 15.9 % (19-41); Mean Corp Hgb Conc 31.6 g/gl (32-36); Mean Corpuscular Hgb 28.9 pg (27.0-32.0); Mean Corpuscular Volume 91.5 fL (81-99); Mean Platelet Vol. 10.3 fl (6.2-12.0); Monocyte# 0.69 X10^3/uL; Monocyte% 9.3 % (0-10); Neutrophil # 5.09 X10^3/uL (2.7-7.7); Neutrophil % 68.6 % (47-70); POSITIVE COUNT NO; POSITIVE DIFFERENTIAL NO; POSITIVE MORPHOLOGY NO; Platelet Count 224 K/mm3 (150-450); RBC Distribution Width CV 15.1 % (11.6-14.6); RBC Distribution Width SD 49.2 fl (35.1-43.9); Red Blood Count 4.01 M/mm3 (4.2-5.4); White Blood Count 7.4 K/mm3 (4.4-11.0)
[2018-07-25] MEDS: 0.9% Normal Saline 1,000 ML 150 ML IV (07:23)
[2018-07-25] MEDS: MethylPREDNISolone 125 MG/2 ML Vial IV (07:23)
[2018-07-25 07:35] LABS: AST(SGOT) 10 U/L (15-37); Alanine Aminotransfer ALT/SGPT 14 U/L (13-56); Alkaline Phosphatase 53 U/L (45-117); Anion Gap 7 (5-15); BUN 11 mg/dL (7-18); BUN/Creat Ratio 15.3 RATIO (10-20); Bilirubin, Direct 0.29 mg/dL (0.00-0.30); Calcium,Total 8.6 mg/dL (8.5-10.1); Chloride 102 mmol/L (98-107); Creatinine, Serum 0.72 mg/dL (0.55-1.02); EST Glomerular Filtration Rate 87 mL/min (>60); Est Glom Filt Rate - Afr Amer 106 mL/min (>60); Estimated Creatinine Clearance 63.25 ml/min; Globulin 4.5 g/dL (2.2-4.2); Glucose 169 mg/dL (74-106); Lipase 51 U/L (73-393); Potassium 3.8 mmol/L (3.5-5.1); Protein, Total 7.5 g/dL (6.4-8.2); Sodium Level 139 mmol/L (136-145)
--- NOTE | 2018-07-25 07:46 | NURSING ---
DR JURADO FOR DR MERLOS
--- NOTE | 2018-07-25 07:55 | NURSING ---
MED SURG OBS JOPPERI COPD EXAC
[2018-07-25] MEDS: Doxycycline 100 MG CAPSULE PO ×3 (08:19→21:29)
--- NOTE | 2018-07-25 10:16 | PCM.HP.STD ---
Problem List (1) Acute respiratory failure with hypoxia Status: Acute (2) COPD with acute exacerbation Status: Acute History of Present Illness Date of Admission: 07/25/18 Chief Complaint: shortness of breath. malaise. The patient is a 63 year old F who for the past week has been feeling listless, increasingly short of breath, coughing. Presented to the ER on 07/22/18 and diagnosed with an acute bronchitis and discharged with doxycycline. Despite the antibiotics, she felt worse, and again presented to the ER with subject worsening symptoms. Pt felt to have an acute exacerbation of COPD and received bronchodilators and 125mg of IV Solu-medrol. Some improvement thus far. Overall, similar to her prior episodes of COPD exacerbation. [] Past Medical History Past Medical History (Chronic Problems): Chronic Problems Paroxysmal A-fib (Chronic) Diabetes mellitus type 2 in obese (Chronic) Coronary arteriosclerosis (Chronic) cath 05/2015 mild-moderate disease medical therapy recommended Hypothyroidism (Chronic) Hyperlipemia (Chronic) GERD (gastroesophageal reflux disease) (Chronic) Hypertension (Chronic) COPD (chronic obstructive pulmonary disease) (Chronic) Chronic respiratory insufficiency (Chronic) On home oxygen at night S/P PTCA (percutaneous transluminal coronary angioplasty) (Chronic) PARESH (obstructive sleep apnea) (Chronic) Allergies ciprofloxacin [From Cipro] Allergy (Verified 07/25/18 06:11) Hives latex Allergy (Verified 07/25/18 06:11) matos me niacin [From Niaspan Extended-Release] Allergy (Verified 07/25/18 06:11) Hives ondansetron [From Zofran] Allergy (Verified 07/25/18 06:11) Unknown Xanthines Allergy (Verified 07/25/18 06:11) Unknown orphenadrine citrate [From Norgesic] Adverse Reaction (Verified 07/25/18 06:11) groggy medical tape Adverse Reaction (Uncoded 07/25/18 06:11) blisters Home Medications: Ambulatory Orders Medication Instructions Recorded Albuterol Inhaler [Ventolin Hfa] 2 puff INHALATION Q4H PRN PRN 02/03/18 Atorvastatin Calcium [Lipitor] 40 mg PO DAILY 02/03/18 Diltiazem HCl [Cartia Xt] 180 mg PO DAILY 02/03/18 Docusate Sodium [Stool Softener] 100 mg PO DAILY 02/03/18 Duloxetine Hcl [Cymbalta] 60 mg PO DAILY 02/03/18 Insulin Lispro [Humalog KwikPen] 22 unit SQ LUNCH 02/03/18 Insulin Lispro [Humalog KwikPen] 24 unit SQ DINNER 02/03/18 Insulin Lispro [Humalog] 14 unit SQ BREAKFAST 02/03/18 Isosorbide Mononitrate [Imdur] 90 mg PO DAILY 02/03/18 Levothyroxine [Synthroid] 100 mcg PO DAILY 02/03/18 Apixaban [Eliquis] 2.5 mg PO BID 05/17/18 Ascorbic Acid [Vitamin C] 500 mg PO DAILY@0800 05/17/18 Metoprolol Tartrate [Lopressor] 100 mg PO BID 05/17/18 Omeprazole [Prilosec] 20 mg PO DAILY 05/17/18 Pregabalin [Lyrica] 100 mg PO TID 05/17/18 Sennosides [Claudia-Ramila] 8.6 mg PO BID 05/17/18 Aspirin [Aspirin EC] 81 mg PO DAILY 07/22/18 Doxycycline Monohydrate 100 mg PO BID #20 cap 07/22/18 Ferrous Gluconate 324 mg PO DAILY 07/22/18 Fluticasone Propionate 2 sprays NASAL DAILY 07/22/18 Ibuprofen 400 mg PO Q6H PRN PRN 07/22/18 Insulin Glargine [Lantus SoloStar 36 units SC BID 07/22/18 Pen] Metformin(XR) [Glucophage Xr] 1,000 mg PO BID 07/22/18 busPIRone [Buspar] 7.5 mg PO BID 07/25/18 Surgical History: angioplasty, cholecystectomy, herniorrhaphy, hysterectomy, - - tubal ligation. 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 Review of Systems Constitutional: Reports: Chills, Malaise, Weakness. Denies: Anorexia, Fever, Night Sweats Eyes: Denies: Blurred vision, Double vision HEENT: Denies: Head Aches, Sinus Congestion, Sinus Drainage Cardiovascular: Reports: Chest Pain - from cough, Edema - chronic Respiratory: Reports: Cough, Shortness of Breath, Shortness of breath upon exertion, Sputum production Gastrointestinal: Reports: Vomiting - with coughing fits. Denies: Abdominal Pain Genitourinary: Denies: Dysuria Gynecological: Denies: Breast symptoms, Sexual concerns Musculoskeletal: Denies: Joint Pain, Joint Tenderness Skin: Denies: Dryness, Jaundice Neurological: Denies: Numbness, Tingling, Focal weakness Psychiatric: Denies: Anxiety, Depression Endocrine: Denies: Change in Body Habitus, Heat/ Cold Intolerance Hematologic/ Lymphatic: Reports: Hx of blood clot. Denies: Easy Bruising, Easy Bleeding Comment: A 10 point review of systems were negative except as mentioned in the history of present illness and the other review of systems. VTE Information - Inpt Only VTE Present on Admission: No VTE Mechan Device Prophylaxis: None VTE Pharm Prophylaxis ordered?: Yes Patient Problems: Active and Suspected Problems Acute respiratory failure with hypoxia (Acute) COPD with acute exacerbation (Acute) - Physical Exam General: Alert, Cooperative, No apparent distress, - - No respiratory distress. No conversational dyspnea. HEENT: Atraumatic, Normocephalic Oral: Moist Mucosa, No Gingival or Mucosal Lesions/ Ulcerations Neck: No Nodes, Thyroid Normal Size and Texture Lungs: Clear to auscultation, Diminished Cardiovascular: Regular rate, Regular Rhythm, Normal S1, Normal S2, No murmurs Abdomen: Bowel Sounds Present, Soft, Non Tender, Non-Distended, No Hepato-splenomegaly, Obese Extremities: No Calf Tenderness, Edema - Trace Skin: No rashes, - - Tinea pedis on her left toes. Musculoskeletal: No Tenderness to Palpation of Joints or Extremities, No Muscle Wasting Neurological: Neuro grossly intact, Muscle tone normal, Coordination normal Psych/Mental Status: Normal Affect, Anxious Vital Signs Temp Pulse Resp BP Pulse Ox 36.1 C L 83 22 H 117/88 H 97 07/25/18 08:39 07/25/18 08:39 07/25/18 08:39 07/25/18 08:39 07/25/18 08:39 Oxygen Flow Rate (L/min) 3 Oxygen Delivery Method Nasal Cannula Weight: 98.9 kg Body Mass Index (BMI) 39.9 Finger Stick Blood Glucose 118 Laboratory Tests Past 24 Hrs 07/25/18 07/25/18 07:10 07:10 WBC 7.4 RBC 4.01 L Hgb 11.6 L Hct 36.7 L MCV 91.5 MCH 28.9 MCHC 31.6 L RDW 15.1 H RDW Differential 49.2 H Plt Count 224 MPV 10.3 Immature Gran % (Auto) 0.800 Neut % (Auto) 68.6 Lymph % (Auto) 15.9 L [place] % (Auto) 9.3 Eos % (Auto) 5.0 Baso % (Auto) 0.4 Absolute Neuts (auto) 5.1 Absolute Lymphs (auto) 1.18 Total Counted Not Reportable Sodium 139 Potassium 3.8 Chloride 102 Carbon Dioxide 30.0 Anion Gap 7 BUN 11 Creatinine 0.72 Estim Creat Clear Calc 63.25 Est GFR (MDRD) Af Amer 106 Est GFR (MDRD) Non-Af 87 BUN/Creatinine Ratio 15.3 Glucose 169 H Calcium 8.6 Total Bilirubin 1.00 Direct Bilirubin 0.29 AST 10 L ALT 14 Alkaline Phosphatase 53 Troponin I < 0.015 Total Protein 7.5 Albumin 3.0 L Globulin 4.5 H Lipase 51 L Clinical Impression(s) from Imaging Studies Chest X-Ray 07/25/18 06:25 IMPRESSION: Evolving bibasilar alveolar disease. Small left pleural effusion is suspected. Electronically Signed: Mukul Murray MD at 6:41 EDT Tel , Service support , Assessment/Plan All Active Problems Mental status alteration (Acute) Acute on chronic respiratory failure with hypoxia and hypercapnia (Acute) COPD exacerbation (Acute) Possible pneumonia (Acute) Atrial fibrillation with RVR (Acute) Hypoglycemia (Acute) Acute metabolic encephalopathy (Acute) Acute respiratory failure with hypoxia (Acute) COPD with acute exacerbation (Acute) COPD with moderate acute bronchitis (Acute) Acute hypoglycemia (Acute) Abnormal nuclear stress test (Resolved) Pneumonia (Resolved) Septic shock (Resolved) 1. Acute hypoxic respiratory failure. Pulse ox dropped down to 87% Secondary to COPD exacerbation possible bronchitis less her underlying obstructive sleep apnea Wean oxygen as tolerated continue with the doxycycline she was previously prescribed for her bronchitis 2. Acute COPD exacerbation Continue with bronchodilators Continue with steroids for now 3. Diabetes mellitus type 2 Continue with her Lantus and scheduled insulin Anticipate her blood sugars will rise given the steroids and the patient will also be topped off with a sliding scale 4. Paroxysmal atrial fibrillation Continue with diltiazem and Eliquis 5. DVT prophylaxis: Patient is already anticoagulated on Eliquis. 6. Disposition: Depending on patient's overall clinical improvement. Anticipate patient being in the hospital for at least the next 24-48 hours. Check an amatory pulse ox prior to discharge to see if patient will have increased oxygen demands upon discharge. Code Visit Inpatient E&M: 30426 Init Hosp L3
--- NOTE | 2018-07-25 10:20 | HP.PCM_ITS ---
Problem List (1) Acute respiratory failure with hypoxia Status: Acute (2) COPD with acute exacerbation Status: Acute History of Present Illness Date of Admission: 07/25/18 Chief Complaint: shortness of breath. malaise. The patient is a 63 year old F who for the past week has been feeling listless, increasingly short of breath, coughing. Presented to the ER on 07/22/18 and diagnosed with an acute bronchitis and discharged with doxycycline. Despite the antibiotics, she felt worse, and again presented to the ER with subject worsening symptoms. Pt felt to have an acute exacerbation of COPD and received bronchodilators and 125mg of IV Solu-medrol. Some improvement thus far. Overall, similar to her prior episodes of COPD exacerbation. [] Past Medical History Past Medical History (Chronic Problems): Chronic Problems Paroxysmal A-fib (Chronic) Diabetes mellitus type 2 in obese (Chronic) Coronary arteriosclerosis (Chronic) cath 05/2015 mild-moderate disease medical therapy recommended Hypothyroidism (Chronic) Hyperlipemia (Chronic) GERD (gastroesophageal reflux disease) (Chronic) Hypertension (Chronic) COPD (chronic obstructive pulmonary disease) (Chronic) Chronic respiratory insufficiency (Chronic) On home oxygen at night S/P PTCA (percutaneous transluminal coronary angioplasty) (Chronic) PARESH (obstructive sleep apnea) (Chronic) Allergies ciprofloxacin [From Cipro] Allergy (Verified 07/25/18 06:11) Hives latex Allergy (Verified 07/25/18 06:11) matos me niacin [From Niaspan Extended-Release] Allergy (Verified 07/25/18 06:11) Hives ondansetron [From Zofran] Allergy (Verified 07/25/18 06:11) Unknown Xanthines Allergy (Verified 07/25/18 06:11) Unknown orphenadrine citrate [From Norgesic] Adverse Reaction (Verified 07/25/18 06:11) groggy medical tape Adverse Reaction (Uncoded 07/25/18 06:11) blisters Home Medications: Ambulatory Orders Medication Instructions Recorded Albuterol Inhaler [Ventolin Hfa] 2 puff INHALATION Q4H PRN PRN 02/03/18 Atorvastatin Calcium [Lipitor] 40 mg PO DAILY 02/03/18 Diltiazem HCl [Cartia Xt] 180 mg PO DAILY 02/03/18 Docusate Sodium [Stool Softener] 100 mg PO DAILY 02/03/18 Duloxetine Hcl [Cymbalta] 60 mg PO DAILY 02/03/18 Insulin Lispro [Humalog KwikPen] 22 unit SQ LUNCH 02/03/18 Insulin Lispro [Humalog KwikPen] 24 unit SQ DINNER 02/03/18 Insulin Lispro [Humalog] 14 unit SQ BREAKFAST 02/03/18 Isosorbide Mononitrate [Imdur] 90 mg PO DAILY 02/03/18 Levothyroxine [Synthroid] 100 mcg PO DAILY 02/03/18 Apixaban [Eliquis] 2.5 mg PO BID 05/17/18 Ascorbic Acid [Vitamin C] 500 mg PO DAILY@0800 05/17/18 Metoprolol Tartrate [Lopressor] 100 mg PO BID 05/17/18 Omeprazole [Prilosec] 20 mg PO DAILY 05/17/18 Pregabalin [Lyrica] 100 mg PO TID 05/17/18 Sennosides [Claudia-Ramila] 8.6 mg PO BID 05/17/18 Aspirin [Aspirin EC] 81 mg PO DAILY 07/22/18 Doxycycline Monohydrate 100 mg PO BID #20 cap 07/22/18 Ferrous Gluconate 324 mg PO DAILY 07/22/18 Fluticasone Propionate 2 sprays NASAL DAILY 07/22/18 Ibuprofen 400 mg PO Q6H PRN PRN 07/22/18 Insulin Glargine [Lantus SoloStar 36 units SC BID 07/22/18 Pen] Metformin(XR) [Glucophage Xr] 1,000 mg PO BID 07/22/18 busPIRone [Buspar] 7.5 mg PO BID 07/25/18 Surgical History: angioplasty, cholecystectomy, herniorrhaphy, hysterectomy, - - tubal ligation. Psychiatric History: No pertinent psych hx [employer] History: No pertinent [employer] history Smoking Status: Former smoker Tobacco Use: Non-smoker Alcohol: None Drugs: None - *Family History Maternal History Items: No pertinent history Paternal History Items: Heart Disease, Stroke - age 62 Offspring History Items: No pertinent history - 5 children, 32 grand children and great grandchildren Sibling History Items: COPD - in sister. Review of Systems Constitutional: Reports: Chills, Malaise, Weakness. Denies: Anorexia, Fever, Night Sweats Eyes: Denies: Blurred vision, Double vision HEENT: Denies: Head Aches, Sinus Congestion, Sinus Drainage Cardiovascular: Reports: Chest Pain - from cough, Edema - chronic Respiratory: Reports: Cough, Shortness of Breath, Shortness of breath upon exertion, Sputum production Gastrointestinal: Reports: Vomiting - with coughing fits. Denies: Abdominal Pain Genitourinary: Denies: Dysuria Gynecological: Denies: Breast symptoms, Sexual concerns Musculoskeletal: Denies: Joint Pain, Joint Tenderness Skin: Denies: Dryness, Jaundice Neurological: Denies: Numbness, Tingling, Focal weakness Psychiatric: Denies: Anxiety, Depression Endocrine: Denies: Change in Body Habitus, Heat/ Cold Intolerance Hematologic/ Lymphatic: Reports: Hx of blood clot. Denies: Easy Bruising, Easy Bleeding Comment: A 10 point review of systems were negative except as mentioned in the history of present illness and the other review of systems. VTE Information - Inpt Only VTE Present on Admission: No VTE Mechan Device Prophylaxis: None VTE Pharm Prophylaxis ordered?: Yes Patient Problems: Active and Suspected Problems Acute respiratory failure with hypoxia (Acute) COPD with acute exacerbation (Acute) - Physical Exam General: Alert, Cooperative, No apparent distress, - - No respiratory distress. No conversational dyspnea. HEENT: Atraumatic, Normocephalic Oral: Moist Mucosa, No Gingival or Mucosal Lesions/ Ulcerations Neck: No Nodes, Thyroid Normal Size and Texture Lungs: Clear to auscultation, Diminished Cardiovascular: Regular rate, Regular Rhythm, Normal S1, Normal S2, No murmurs Abdomen: Bowel Sounds Present, Soft, Non Tender, Non-Distended, No Hepato- splenomegaly, Obese Extremities: No Calf Tenderness, Edema - Trace Skin: No rashes, - - Tinea pedis on her left toes. Musculoskeletal: No Tenderness to Palpation of Joints or Extremities, No Muscle Wasting Neurological: Neuro grossly intact, Muscle tone normal, Coordination normal Psych/Mental Status: Normal Affect, Anxious Vital Signs Temp Pulse Resp BP Pulse Ox 36.1 C L 83 22 H 117/88 H 97 07/25/18 08:39 07/25/18 08:39 07/25/18 08:39 07/25/18 08:39 07/25/18 08:39 Oxygen Flow Rate (L/min) 3 Oxygen Delivery Method Nasal Cannula Weight: 98.9 kg Body Mass Index (BMI) 39.9 Finger Stick Blood Glucose 118 Laboratory Tests Past 24 Hrs 07/25/18 07/25/18 07:10 07:10 WBC 7.4 RBC 4.01 L Hgb 11.6 L Hct 36.7 L MCV 91.5 MCH 28.9 MCHC 31.6 L RDW 15.1 H RDW Differential 49.2 H Plt Count 224 MPV 10.3 Immature Gran % (Auto) 0.800 Neut % (Auto) 68.6 Lymph % (Auto) 15.9 L [place] % (Auto) 9.3 Eos % (Auto) 5.0 Baso % (Auto) 0.4 Absolute Neuts (auto) 5.1 Absolute Lymphs (auto) 1.18 Total Counted Not Reportable Sodium 139 Potassium 3.8 Chloride 102 Carbon Dioxide 30.0 Anion Gap 7 BUN 11 Creatinine 0.72 Estim Creat Clear Calc 63.25 Est GFR (MDRD) Af Amer 106 Est GFR (MDRD) Non-Af 87 BUN/Creatinine Ratio 15.3 Glucose 169 H Calcium 8.6 Total Bilirubin 1.00 Direct Bilirubin 0.29 AST 10 L ALT 14 Alkaline Phosphatase 53 Troponin I < 0.015 Total Protein 7.5 Albumin 3.0 L Globulin 4.5 H Lipase 51 L Clinical Impression(s) from Imaging Studies Chest X-Ray 07/25/18 06:25 IMPRESSION: Evolving bibasilar alveolar disease. Small left pleural effusion is suspected. Electronically Signed: Mukul Murray MD at 6:41 EDT Tel , Service support , Assessment/Plan All Active Problems Mental status alteration (Acute) Acute on chronic respiratory failure with hypoxia and hypercapnia (Acute) COPD exacerbation (Acute) Possible pneumonia (Acute) Atrial fibrillation with RVR (Acute) Hypoglycemia (Acute) Acute metabolic encephalopathy (Acute) Acute respiratory failure with hypoxia (Acute) COPD with acute exacerbation (Acute) COPD with moderate acute bronchitis (Acute) Acute hypoglycemia (Acute) Abnormal nuclear stress test (Resolved) Pneumonia (Resolved) Septic shock (Resolved) 1. Acute hypoxic respiratory failure. * Pulse ox dropped down to 87% * Secondary to COPD exacerbation possible bronchitis less her underlying obstructive sleep apnea * Wean oxygen as tolerated * continue with the doxycycline she was previously prescribed for her bronchitis 2. Acute COPD exacerbation * Continue with bronchodilators * Continue with steroids for now 3. Diabetes mellitus type 2 * Continue with her Lantus and scheduled insulin * Anticipate her blood sugars will rise given the steroids and the patient will also be topped off with a sliding scale 4. Paroxysmal atrial fibrillation * Continue with diltiazem and Eliquis 5. DVT prophylaxis: Patient is already anticoagulated on Eliquis. 6. Disposition: * Depending on patient's overall clinical improvement. Anticipate patient being in the hospital for at least the next 24-48 hours. * Check an amatory pulse ox prior to discharge to see if patient will have increased oxygen demands upon discharge. Code Visit Inpatient E&M: 86654 Init Hosp L3
[2018-07-25] MEDS: Isosorbide Mononitrate 30 MG Tablet 90 MG PO (10:25)
[2018-07-25] MEDS: APIXABAN 2.5 MG TABLET PO ×2 (10:26→21:29)
[2018-07-25] MEDS: Metoprolol Tartrate 100 MG Tablet PO ×2 (10:26→21:31)
[2018-07-25] MEDS: Pantoprazole Sodium 20 MG Tablet PO (10:27)
[2018-07-25] MEDS: Ferrous Gluconate 324 MG Tablet PO (10:27)
[2018-07-25] MEDS: dilTIAZem CD 180 MG Capsule PO (10:27)
[2018-07-25] MEDS: DULoxetine Hcl 60 MG Capsule PO (10:28)
[2018-07-25] MEDS: Fluticasone 0.05% 1 SPRAY NASAL.SRY 2 SPRAY NASAL (10:29)
[2018-07-25] MEDS: Insulin Lispro 100 UNIT/ML INSULN.PEN 22 UNIT SC (11:39)
[2018-07-25] MEDS: Insulin Lispro 100 UNIT/ML INSULN.PEN SQ (11:40)
[2018-07-25 11:41] LABS: Bedside Glucose 245 mg/dL (70-110)
--- NOTE | 2018-07-25 13:15 | CASEMGMT ---
RN JOSEFINA Face to Face with patient for initial transition planning/care coordination assessment. RN JOSEFINA introduced self and role at [facility]. Patient lying in bed, alert and oriented. Patient willing to participate in assessment and is able to answer all questions appropriately. Care providers, pharmacy, and demographics verified. Patient wishes to discharge home with resumption of aide services and would like to add HHC. Patient states she has no further needs or concerns at this time. CM to follow for discharge planning needs that may arise. PCP: Roxanne Specialists: Ty collar setter; Naa movable bulkhead installer Preferred Pharmacy: [facility] or [facility] Insurance: [facility] Prescription Benefit: [facility] Living Will/HPOA: None LNOK: Sister and daughters Living Arrangements: Patient lives with sister who assists with care in a 1st floor apartment. Transportation: [facility] DME/HHC: Radha has shower chair, raised toilet seat, cane, grab bars, walker, wc, medical alert, oxygen, bipap, nebulizer through [facility]. Patient states she has passport/waiver services and CM is Sabrina. Patient has aide services 1-2 times per week with Home helper. Patient would like [facility] for fpc and therapy. Disposition Plan: Patient to discharge home with HHC, passport services, family support, and follow-up plans in place. Joyce PACHECO, RN, CM
[2018-07-25] MEDS: Pregabalin 50 MG Capsule 100 MG PO ×2 (13:38→21:33)
[2018-07-25] MEDS: 0.9% NaCl Peripheral Flush Adult/Peds IV ×3 (13:38→21:34)
[2018-07-25] MEDS: proMETHazine 25 MG/ML Syringe 12.5 MG IV (16:15)
[2018-07-25] MEDS: Insulin Lispro 100 UNIT/ML INSULN.PEN 24 UNIT SC (16:16)
[2018-07-25] MEDS: Acetaminophen 325 MG Tablet 650 MG PO ×2 (16:19→23:04)
[2018-07-25 16:26] LABS: Bedside Glucose 143 mg/dL (70-110)
[2018-07-25] MEDS: Atorvastatin Calcium 40 MG Tablet PO (21:30)
[2018-07-25] MEDS: Clotrimazole/Betamethasone 1 Tube 1 APPLIC TOPICAL (21:33)
[2018-07-25] MEDS: Senna Tablet 1 TABLET PO (21:34)
[2018-07-25 22:01] LABS: Bedside Glucose 122 mg/dL (70-110)
[2018-07-26] MEDS: Ibuprofen 400 MG Tablet PO (01:52)
[2018-07-26 02:59] VITALS: BP 143/95; PULSE 94; RESP 20; TEMP 36.8; O2SAT 94
[2018-07-26] MEDS: Pregabalin 50 MG Capsule 100 MG PO ×2 (07:03→14:04)
[2018-07-26] MEDS: 0.9% NaCl Peripheral Flush Adult/Peds IV ×2 (07:04→14:06)
[2018-07-26] MEDS: Levothyroxine 100 MCG Tablet PO (07:04)
[2018-07-26 07:16] LABS: Bedside Glucose 210 mg/dL (70-110)
[2018-07-26 07:54] VITALS: PULSE 106; RESP 18; O2SAT 99
[2018-07-26] MEDS: Ipratropium/Albuterol Sulfate 3 ML AMPUL.NEB INHALATION (07:54)
[2018-07-26 08:04] LABS: Absolute Neutrophil Count 10.4 X10^3/uL (2.0-7.7); Basophil# 0.01 X10^3/uL; Basophil% 0.1 % (0-1); Hematocrit 37.5 % (37-47); Hemoglobin 11.7 g/dl (12.0-15.0); Lymphocyte % 6.7 % (19-41); Mean Corp Hgb Conc 31.2 g/gl (32-36); Mean Corpuscular Hgb 28.4 pg (27.0-32.0); Mean Platelet Vol. 10.8 fl (6.2-12.0); Monocyte# 0.66 X10^3/uL; Monocyte% 5.5 % (0-10); Neutrophil # 10.41 X10^3/uL (2.7-7.7); Neutrophil % 87.4 % (47-70); Platelet Count 266 K/mm3 (150-450); RBC Distribution Width CV 15.6 % (11.6-14.6); RBC Distribution Width SD 51.3 fl (35.1-43.9); Red Blood Count 4.12 M/mm3 (4.2-5.4); White Blood Count 11.9 K/mm3 (4.4-11.0)
[2018-07-26 08:05] LABS: Differential Indicated SCAN CRITERIA MET; POSITIVE COUNT YES; POSITIVE DIFFERENTIAL NO; POSITIVE MORPHOLOGY YES
[2018-07-26 08:17] LABS: Anion Gap 8 (5-15); BUN 14 mg/dL (7-18); BUN/Creat Ratio 27.2 RATIO (10-20); Calcium,Total 8.9 mg/dL (8.5-10.1); Chloride 102 mmol/L (98-107); Creatinine, Serum 0.51 mg/dL (0.55-1.02); EST Glomerular Filtration Rate 128 mL/min (>60); Est Glom Filt Rate - Afr Amer 155 mL/min (>60); Glucose 205 mg/dL (74-106); Potassium 4.2 mmol/L (3.5-5.1); Sodium Level 141 mmol/L (136-145)
[2018-07-26] MEDS: Insulin Lispro 100 UNIT/ML INSULN.PEN 14 UNIT SC (08:57)
[2018-07-26 08:59] VITALS: BP 149/97; PULSE 107; RESP 20; TEMP 36.2; O2SAT 96
[2018-07-26] MEDS: Senna Tablet 1 TABLET PO (09:00)
[2018-07-26] MEDS: Aspirin E.C. 81 MG Tablet PO (09:00)
[2018-07-26] MEDS: Isosorbide Mononitrate 30 MG Tablet 90 MG PO (09:01)
[2018-07-26] MEDS: DULoxetine Hcl 60 MG Capsule PO (09:01)
[2018-07-26] MEDS: Docusate Sodium 100 MG Capsule PO (09:01)
[2018-07-26] MEDS: Ascorbic Acid 500 MG Tablet PO (09:02)
[2018-07-26] MEDS: Pantoprazole Sodium 20 MG Tablet PO (09:02)
[2018-07-26] MEDS: Fluticasone 0.05% 1 SPRAY NASAL.SRY 2 SPRAY NASAL (09:03)
[2018-07-26] MEDS: dilTIAZem CD 180 MG Capsule PO (09:04)
[2018-07-26] MEDS: APIXABAN 2.5 MG TABLET PO (09:06)
[2018-07-26 09:07] LABS: Hypochromasia RARE; Platelet Estimate ADEQUATE (ADEQ); Red Cell Morphology N CYTIC NORMAL (NORM C&C)
[2018-07-26 09:11] VITALS: PULSE 107
[2018-07-26] MEDS: Insulin Lispro 100 UNIT/ML INSULN.PEN SQ ×2 (09:11→11:54)
[2018-07-26] MEDS: Metoprolol Tartrate 100 MG Tablet PO (09:11)
[2018-07-26] MEDS: Clotrimazole/Betamethasone 1 Tube 1 APPLIC TOPICAL (09:12)
[2018-07-26] MEDS: Ferrous Gluconate 324 MG Tablet PO (09:12)
[2018-07-26] MEDS: Doxycycline 100 MG CAPSULE PO (09:15)
--- NOTE | 2018-07-26 09:22 | DCINST_ITS ---
- Discharge Diagnoses Current Active Problems: Current Active and Chronic Problems Acute respiratory failure with hypoxia (Acute) COPD with acute exacerbation (Acute) You will use the following diet at home:: Calorie/Carbohydrate Controlled (specify 1200, 1400, etc) - 1800 Your food should be the consistency of: Regular Your liquids should be the consistency of: Regular/Thin Discharge Activity: Return to Normal Activity Call your doctor if you observe: Fever of 101 or Higher, Shortness of breath Instructions: What is COPD?, Discharge Instructions: COPD, COPD: Using Inhalers, Treatment for COPD Allergies/Adverse Reactions: Allergies ciprofloxacin [From Cipro] Allergy (Verified 07/25/18 06:11) Hives latex Allergy (Verified 07/25/18 06:11) matos me niacin [From Niaspan Extended-Release] Allergy (Verified 07/25/18 06:11) Hives ondansetron [From Zofran] Allergy (Verified 07/25/18 06:11) Unknown Xanthines Allergy (Verified 07/25/18 06:11) Unknown orphenadrine citrate [From Norgesic] Adverse Reaction (Verified 07/25/18 06:11) groggy medical tape Adverse Reaction (Uncoded 07/25/18 06:11) blisters Medications to take at Discharge Albuterol Inhaler [Ventolin Hfa] 2 puff INHALATION Q4H PRN PRN 02/03/18 Atorvastatin Calcium [Lipitor] 40 mg PO DAILY 02/03/18 Diltiazem HCl [Cartia Xt] 180 mg PO DAILY 02/03/18 Docusate Sodium [Stool Softener] 100 mg PO DAILY 02/03/18 Duloxetine Hcl [Cymbalta] 60 mg PO DAILY 02/03/18 Insulin Lispro [Humalog KwikPen] 22 unit SQ LUNCH 02/03/18 Insulin Lispro [Humalog KwikPen] 24 unit SQ DINNER 02/03/18 Insulin Lispro [Humalog] 14 unit SQ BREAKFAST 02/03/18 Isosorbide Mononitrate [Imdur] 90 mg PO DAILY 02/03/18 Levothyroxine [Synthroid] 100 mcg PO DAILY 02/03/18 Apixaban [Eliquis] 2.5 mg PO BID 05/17/18 Ascorbic Acid [Vitamin C] 500 mg PO DAILY@0800 05/17/18 Metoprolol Tartrate [Lopressor] 100 mg PO BID 05/17/18 Omeprazole [Prilosec] 20 mg PO DAILY 05/17/18 Pregabalin [Lyrica] 100 mg PO TID 05/17/18 Sennosides [Claudia-Ramila] 8.6 mg PO BID 05/17/18 Aspirin [Aspirin EC] 81 mg PO DAILY 07/22/18 Doxycycline Monohydrate 100 mg PO BID #20 cap 07/22/18 Ferrous Gluconate 324 mg PO DAILY 07/22/18 Fluticasone Propionate 2 sprays NASAL DAILY 07/22/18 Ibuprofen 400 mg PO Q6H PRN PRN 07/22/18 Insulin Glargine [Lantus SoloStar Pen] 36 units SC BID 07/22/18 Metformin(XR) [Glucophage Xr] 1,000 mg PO BID 07/22/18 busPIRone [Buspar] 7.5 mg PO BID 07/25/18 Prednisone 4 tab PO DAILY #20 tablet 07/26/18 The following prescriptions were given: Prednisone 4 tab PO DAILY #20 tablet Primary Care Physician: Bhupendra Oliveira MD [Primary Care Provider] - Within 2 Weeks Test Results: Test results from this visit will be discussed in further detail at your follow- up appointment, if applicable. Please Follow Up With: Adriano Livingston MD When: 1-2 months Proposed Discharge Date: 07/26/18
--- NOTE | 2018-07-26 09:22 | PCM.DC.SUM ---
Discharge Date and Diagnosis - Problem List Patient Problems: Active and Suspected Problems Acute respiratory failure with hypoxia (Acute) COPD with acute exacerbation (Acute) Date of Admission: 07/25/18 Date of Discharge: 07/26/18 - Primary Discharge Diagnosis Active and Suspected Problems Acute respiratory failure with hypoxia (Acute) COPD with acute exacerbation (Acute) - Secondary Discharge Diagnosis Chronic Problems Paroxysmal A-fib (Chronic) Diabetes mellitus type 2 in obese (Chronic) Coronary arteriosclerosis (Chronic) cath 05/2015 mild-moderate disease medical therapy recommended Hypothyroidism (Chronic) Hyperlipemia (Chronic) GERD (gastroesophageal reflux disease) (Chronic) Hypertension (Chronic) COPD (chronic obstructive pulmonary disease) (Chronic) Chronic respiratory insufficiency (Chronic) On home oxygen at night S/P PTCA (percutaneous transluminal coronary angioplasty) (Chronic) PARESH (obstructive sleep apnea) (Chronic) Hospital Course and Treatment Imaging Results: Clinical Impression(s) from Imaging Studies Chest X-Ray 07/25/18 06:25 IMPRESSION: Evolving bibasilar alveolar disease. Small left pleural effusion is suspected. Electronically Signed: Mukul Murray MD at 6:41 EDT Tel , Service support , NA Operations: None Procedures: None Summary of Care Provided: The patient is a 63 year old F presents with shortness of breath and malaise. Patient presented previous presented to the emergency room on 22 July with acute bronchitis and discharged with doxycycline. Patient presented again to the emergency room on the third and found to have an acute exacerbation of COPD possibly related to bronchitis. Patient was put on IV steroids. Patient really did not have any significant wheezes but was continued on IV steroids. Today, patient has no wheezes and is stable on chronic amount of oxygen at home. Patient will be given 40 mg of prednisone days. Patient will continue with the doxycycline that she was previously prescribed until completion. Patient will be going home with home health care. Patient will be seen by physical therapy and barring any new needs, the plan will be still for home with home health care. [] Patient Problems: Active and Suspected Problems Acute respiratory failure with hypoxia (Acute) COPD with acute exacerbation (Acute) - Physical Exam General: Alert, Cooperative, No apparent distress HEENT: Atraumatic, Normocephalic Oral: Moist Mucosa, No Gingival or Mucosal Lesions/ Ulcerations Neck: No Nodes, Thyroid Normal Size and Texture Lungs: Clear to auscultation, No rhonchi, No wheeze, Diminished Cardiovascular: Regular rate, Regular Rhythm, Normal S1, Normal S2, No murmurs Abdomen: Bowel Sounds Present, Soft, Non Tender, Non-Distended, No Hepato-splenomegaly Vital Signs Temp Pulse Resp BP Pulse Ox 36.2 C L 107 H 20 H 149/97 H 96 07/26/18 08:59 07/26/18 09:11 07/26/18 08:59 07/26/18 08:59 07/26/18 08:59 Oxygen Flow Rate (L/min) 2 Oxygen Delivery Method Nasal Cannula Weight: 98.9 kg Body Mass Index (BMI) 39.9 Finger Stick Blood Glucose 118 Intake and Output for Last 24 Hours 07/24/18 07/25/18 07/26/18 23:59 23:59 22:59 Intake Total 480 / 480 320 / 320 Balance 480 / 480 320 / 320 Laboratory Tests Past 24 Hrs 07/26/18 07/26/18 06:55 06:55 WBC 11.9 H RBC 4.12 L Hgb 11.7 L Hct 37.5 MCV 91.0 MCH 28.4 MCHC 31.2 L RDW 15.6 H RDW Differential 51.3 H Plt Count 266 MPV 10.8 Immature Gran % (Auto) 0.300 Neut % (Auto) 87.4 H Lymph % (Auto) 6.7 L [place] % (Auto) 5.5 Eos % (Auto) 0.0 Baso % (Auto) 0.1 Absolute Neuts (auto) 10.4 H Absolute Lymphs (auto) 0.80 L Total Counted Not Reportable Platelet Estimate ADEQUATE RBC Morphology N CYTIC Hypochromasia RARE Sodium 141 Potassium 4.2 Chloride 102 Carbon Dioxide 31.0 Anion Gap 8 BUN 14 Creatinine 0.51 L Estim Creat Clear Calc 89.30 Est GFR (MDRD) Af Amer 155 Est GFR (MDRD) Non-Af 128 BUN/Creatinine Ratio 27.2 H Glucose 205 H Calcium 8.9 POC Glucose 07/26/18 07/25/18 07/25/18 06:59 21:27 16:14 POC Glucose 210 H 122 H 143 H 07/25/18 11:33 POC Glucose 245 H Discharge Diet: 1800 Calorie Control Diet Discharge Activity: Return to Normal Activity Call your doctor if you observe: Fever of 101 or Higher, Shortness of breath Home Medications: Medications to take at Discharge Albuterol Inhaler [Ventolin Hfa] 2 puff INHALATION Q4H PRN PRN 02/03/18 Atorvastatin Calcium [Lipitor] 40 mg PO DAILY 02/03/18 Diltiazem HCl [Cartia Xt] 180 mg PO DAILY 02/03/18 Docusate Sodium [Stool Softener] 100 mg PO DAILY 02/03/18 Duloxetine Hcl [Cymbalta] 60 mg PO DAILY 02/03/18 Insulin Lispro [Humalog KwikPen] 22 unit SQ LUNCH 02/03/18 Insulin Lispro [Humalog KwikPen] 24 unit SQ DINNER 02/03/18 Insulin Lispro [Humalog] 14 unit SQ BREAKFAST 02/03/18 Isosorbide Mononitrate [Imdur] 90 mg PO DAILY 02/03/18 Levothyroxine [Synthroid] 100 mcg PO DAILY 02/03/18 Apixaban [Eliquis] 2.5 mg PO BID 05/17/18 Ascorbic Acid [Vitamin C] 500 mg PO DAILY@0800 05/17/18 Metoprolol Tartrate [Lopressor] 100 mg PO BID 05/17/18 Omeprazole [Prilosec] 20 mg PO DAILY 05/17/18 Pregabalin [Lyrica] 100 mg PO TID 05/17/18 Sennosides [Claudia-Ramila] 8.6 mg PO BID 05/17/18 Aspirin [Aspirin EC] 81 mg PO DAILY 07/22/18 Doxycycline Monohydrate 100 mg PO BID #20 cap 07/22/18 Ferrous Gluconate 324 mg PO DAILY 07/22/18 Fluticasone Propionate 2 sprays NASAL DAILY 07/22/18 Ibuprofen 400 mg PO Q6H PRN PRN 07/22/18 Insulin Glargine [Lantus SoloStar Pen] 36 units SC BID 07/22/18 Metformin(XR) [Glucophage Xr] 1,000 mg PO BID 07/22/18 busPIRone [Buspar] 7.5 mg PO BID 07/25/18 Prednisone 4 tab PO DAILY #20 tablet 07/26/18 Following Prescrptions Were Given to Patient: Prednisone 4 tab PO DAILY #20 tablet Primary Care Physician: Bhupendra Oliveira MD [Primary Care Provider] - Within 2 Weeks Please Follow Up With: Adriano Livingston MD When: 1-2 months Patient Instructions: What is COPD?, Discharge Instructions: COPD, COPD: Using Inhalers, Treatment for COPD Disposition: Home with Home Health Minutes spent on discharge:: 32 Patient Condition:: Fair Medical Necessity - Tobacco Use Smoking Status: Former smoker Tobacco Use: Non-smoker Meaningful Use Info Meaningful Use Diagnoses (Choose all that apply): None applicable Code Visit OBSV E&M: 38342 Observation care discharge
--- NOTE | 2018-07-26 09:45 | CPS ---
PEP therapy done on own.
[2018-07-26] MEDS: Insulin Lispro 100 UNIT/ML INSULN.PEN 22 UNIT SC (11:54)
[2018-07-26 12:00] LABS: Bedside Glucose 315 mg/dL (70-110)
[2018-07-26 14:10] VITALS: BP 145/89; PULSE 68; RESP 20; TEMP 36.8; O2SAT 98
--- NOTE | 2018-07-27 09:39 | CASEMGMT ---
Per Joyce Sotomayor RN-CM, patient needs home health referrals sent. Per in-network list of home health companies, call placed to Uma at [facility] and referral faxed. Rosa Garces LPN Clinical Support
== END 2018-07-26 14:33 | disposition home health service (06) ==
LOC: ED 07:54 → MS3 08:16
PROVIDERS: Emergency Provider Emergency Medicine; Family Provider Family Medicine; PCP Family Medicine; Visit Provider Internal Medicine
DX: J96.01 Acute respiratory failure with hypoxia (principal); J44.1 Chronic obstructive pulmonary disease with (acute) exacerbation; E78.5 Hyperlipidemia, unspecified; G47.33 Obstructive sleep apnea (adult) (pediatric); K21.9 Gastro-esophageal reflux disease without esophagitis; I48.0 Paroxysmal atrial fibrillation; I25.10 Atherosclerotic heart disease of native coronary artery without angina pectoris; E03.9 Hypothyroidism, unspecified; Z99.81 Dependence on supplemental oxygen; I10 Essential (primary) hypertension; Z79.899 Other long term (current) drug therapy; Z79.4 Long term (current) use of insulin; Z79.82 Long term (current) use of aspirin; Z79.01 Long term (current) use of anticoagulants; E11.9 Type 2 diabetes mellitus without complications; Z87.891 Personal history of nicotine dependence
CPT/HCPCS: 36415; 71045; 80048; 80076; 82962; 83690; 84484; 85025; 93005; 94640; 94667; 94668; 96374; 96375; 96376; 97162; 97165; 99218; 99285; J7030; A4216; G0378; G8978; G8979; G8980; G8987; G8988; G8989; J2405

== ENCOUNTER 2018-08-05 12:52 | Observation (INO) | payer MEDICARE, SELFPAY ==
[2018-08-05] VITALS (11 sets, daily range): BP systolic 95–101; BP diastolic 52–68; PULSE 40–67; RESP 16–18; TEMP 36.5–36.9; O2SAT 94–100; BMI 40.8; BMI 38.6
--- NOTE | 2018-08-05 13:17 | EKG12_ITS ---
Test Reason : ALT LOC Blood Pressure : / mmHG Vent. Rate : 061 BPM Atrial Rate : 066 BPM P-R Int : 000 ms QRS Dur : 076 ms QT Int : 442 ms P-R-T Axes : 000 -11 138 degrees QTc Int : 444 ms Atrial fibrillation Nonspecific T wave abnormality Abnormal ECG Confirmed by ALETA ABRAHAM, ALVAREZ ([id number]), photograph editor SHYANNE TERRAZAS ([id number]) on 08/07/2018 3:21:29 PM Referred By: JANNIE Confirmed By:ALVAREZ RIVER MD
--- NOTE | 2018-08-05 13:17 | RAD_ITS ---
STUDY: X-RAY CHEST REASON FOR EXAM: Female, 63 years old. Shortness of breath/dyspnea. TECHNIQUE: Single AP portable view of the chest. COMPARISON: Comparison is made with prior study dated July 25, 2018. FINDINGS: EKG electrodes are seen. There is evidence of vascular congestion and mild degree of CHF. Stable increased markings in the peripheral aspect of the right lower lobe suggestive of possible scarring. There is no demonstrated pleural abnormality. There is borderline cardiomegaly. Normal mediastinum and tracie. Normal visualized pulmonary arteries. There is atherosclerotic calcification of the aortic arch with tortuosity. Normal visualized thoracic spine. Normal visualized ribs, clavicles, and shoulders. There is no demonstrated abnormality of the visualized soft tissue structures of the upper abdomen. RAD/Chest 1 View (Portable) IMPRESSION: Findings suggest a mild degree of CHF with a possible scarring in the right lower lobe. Electronically Signed: Bentley Montejo MD at 13:55 EST Tel [phone], Service support ,
--- NOTE | 2018-08-05 13:17 | CT_ITS ---
STUDY: CT BRAIN WITHOUT CONTRAST REASON FOR EXAM: Female, 63 years old. Lethargy. Altered mental status. RADIATION DOSAGE (If Supplied By Facility): CTDIvol = ( 44.99 ) mGy, DLP = ( 694.87 ) mGycm TECHNIQUE: Transaxial CT imaging of the brain was performed without administration of intravenous contrast material. Individualized dose optimization techniques were used for this CT. COMPARISON: Comparison is made with prior study dated May 17, 2018. FINDINGS: Normal soft tissue structures. Normal calvarium. There is mild cerebral atrophy with widening of the extra-axial spaces and ventricular dilatation. Focal encephalomalacia in the posterior parietal-occipital lobe on the left side. Normal basal ganglia and thalami. Normal brainstem. Normal cerebellum. There is no intracranial hemorrhage. There are no findings of an acute ischemic infarction. Atherosclerotic calcification of the cavernous portions of the internal carotid arteries bilaterally. Mucosal thickening of the right maxillary sinus. CT/Brain/Head without Contrast IMPRESSION: Chronic involutional changes of the brain. Stable examination. Electronically Signed: Bentley Montejo MD at 15:12 EST Tel [phone], Service support ,
--- NOTE | 2018-08-05 13:19 | ED.VISSUMM ---
- ER Visit Summary Date of Service: 08/05/18 Chief Complaint: Altered mental status History of Present Illness: The patient is a 63 F with history of COPD, obstructive sleep apnea, diabetes, hypertension, paroxysmal A. fib, and recent admission for respiratory failure and COPD exacerbation who presents for altered mental status today. Patient was noted to be lethargic at home. EMS was called and they asked patient if she had taken any medications. She handed them her son's tramadol bottle. History from the patient is limited secondary to her altered mental status. She denies any pain, shortness of breath or other complaints. Provided further history that patient has been taking her son's tramadol for headache. Pill count in the bottle does not show a significant number of missing. Physical Examination: Vital signs: afebrile, hemodynamically stable, no hypoxia on room air General: well nourished, well developed, somnolent but will arouse and answer questions Skin: warm, dry, no rash, no pallor HEENT: normocephalic and atraumatic; PERRL at 3 mm, EOMI, moist mucous membranes Cardiovascular: regular rate and rhythm without murmurs, no peripheral edema, 2+ pulses all distal extremities Respiratory: No increased work of breathing, lungs show mild rales and wheezing in the bases, exam limited secondary to body habitus Abdominal: Abdomen is soft, nontender with normoactive bowel sounds, no guarding or rebound, no masses MSK: Generalized weakness, no deformities Neuro: Somnolent. No facial droop, no focal deficits noted but exam limited secondary to patient's somnolence. Will rouse and answer questions then falls back asleep. Test Results: Abnormal Lab Results 08/05/18 08/05/18 08/05/18 13:05 13:05 13:05 WBC 10.3 RBC 4.20 Hgb 12.1 Hct 39.2 MCV 93.3 MCH 28.8 MCHC 30.9 L RDW 16.1 H RDW Differential 54.6 H Plt Count 214 MPV 10.2 Immature Gran % (Auto) 0.200 Neut % (Auto) 75.8 H Lymph % (Auto) 9.1 L [place] % (Auto) 10.4 H Eos % (Auto) 4.3 Baso % (Auto) 0.2 Absolute Neuts (auto) 7.8 H Absolute Lymphs (auto) 0.94 Total Counted Not Reportable PT 14.6 INR 1.1 APTT 32.4 Specimen Type Sample Site pH Bicarbonate Actual POC Total CO2 Base Excess O2 Saturation ABG pCO2 ABG pO2 [place] Test O2 Delivery Device Liter Flow Blood Gas Notified Whom Blood Gas Notified Time Sodium 142 Potassium 3.8 Chloride 106 Carbon Dioxide 31.0 Anion Gap 5 BUN 12 Creatinine 0.66 Estim Creat Clear Calc 69.00 Est GFR (MDRD) Af Amer 116 Est GFR (MDRD) Non-Af 96 BUN/Creatinine Ratio 18.2 Glucose 78 Lactic Acid Calcium 8.1 L Total Bilirubin 0.70 AST 8 L ALT 15 Alkaline Phosphatase 47 Troponin I < 0.015 Total Protein 6.6 Albumin 3.0 L Globulin 3.6 Albumin/Globulin Ratio 0.8 L Urine Color Urine Clarity Urine pH Ur Specific [place] Urine Protein Urine Glucose (UA) Urine Ketones Urine Occult Blood Urine Nitrite Urine Bilirubin Urine Urobilinogen Ur Leukocyte Esterase Urine RBC Urine WBC Ur Squamous Epith Cells Urine Bacteria Urine Mucus Urine Opiates Screen Urine Methadone Screen Ur Barbiturates Screen Ur Phencyclidine Scrn Ur Amphetamines Screen U Methamphetamin-MDMA U Benzodiazepines Scrn Urine Cocaine Screen U Cannabinoids Screen Ur Drug Screen Comment Ethyl Alcohol POC Glucose 08/05/18 08/05/18 08/05/18 13:05 13:32 13:35 WBC RBC Hgb Hct MCV MCH MCHC RDW RDW Differential Plt Count MPV Immature Gran % (Auto) Neut % (Auto) Lymph % (Auto) [place] % (Auto) Eos % (Auto) Baso % (Auto) Absolute Neuts (auto) Absolute Lymphs (auto) Total Counted PT INR APTT Specimen Type Sample Site pH Bicarbonate Actual POC Total CO2 Base Excess O2 Saturation ABG pCO2 ABG pO2 [place] Test O2 Delivery Device Liter Flow Blood Gas Notified Whom Blood Gas Notified Time Sodium Potassium Chloride Carbon Dioxide Anion Gap BUN Creatinine Estim Creat Clear Calc Est GFR (MDRD) Af Amer Est GFR (MDRD) Non-Af BUN/Creatinine Ratio Glucose Lactic Acid 1.7 Calcium Total Bilirubin AST ALT Alkaline Phosphatase Troponin I Total Protein Albumin Globulin Albumin/Globulin Ratio Urine Color Urine Clarity Urine pH Ur Specific [place] Urine Protein Urine Glucose (UA) Urine Ketones Urine Occult Blood Urine Nitrite Urine Bilirubin Urine Urobilinogen Ur Leukocyte Esterase Urine RBC Urine WBC Ur Squamous Epith Cells Urine Bacteria Urine Mucus Urine Opiates Screen Urine Methadone Screen Ur Barbiturates Screen Ur Phencyclidine Scrn Ur Amphetamines Screen U Methamphetamin-MDMA U Benzodiazepines Scrn Urine Cocaine Screen U Cannabinoids Screen Ur Drug Screen Comment Ethyl Alcohol < 3.0 POC Glucose 58 L 08/05/18 08/05/18 08/05/18 14:06 14:17 14:17 WBC RBC Hgb Hct MCV MCH MCHC RDW RDW Differential Plt Count MPV Immature Gran % (Auto) Neut % (Auto) Lymph % (Auto) [place] % (Auto) Eos % (Auto) Baso % (Auto) Absolute Neuts (auto) Absolute Lymphs (auto) Total Counted PT INR APTT Specimen Type Sample Site pH Bicarbonate Actual POC Total CO2 Base Excess O2 Saturation ABG pCO2 ABG pO2 [place] Test O2 Delivery Device Liter Flow Blood Gas Notified Whom Blood Gas Notified Time Sodium Potassium Chloride Carbon Dioxide Anion Gap BUN Creatinine Estim Creat Clear Calc Est GFR (MDRD) Af Amer Est GFR (MDRD) Non-Af BUN/Creatinine Ratio Glucose Lactic Acid Calcium Total Bilirubin AST ALT Alkaline Phosphatase Troponin I Total Protein Albumin Globulin Albumin/Globulin Ratio Urine Color Yellow Urine Clarity Clear Urine pH 6.5 Ur Specific [place] 1.005 Urine Protein Negative Urine Glucose (UA) Normal Urine Ketones Negative Urine Occult Blood Negative Urine Nitrite Negative Urine Bilirubin Negative Urine Urobilinogen Normal Ur Leukocyte Esterase Negative Urine RBC 0 SEEN Urine WBC 0 SEEN Ur Squamous Epith Cells 0 SEEN Urine Bacteria 0 SEEN Urine Mucus 0 SEEN Urine Opiates Screen NEGATIVE Urine Methadone Screen NEGATIVE Ur Barbiturates Screen NEGATIVE Ur Phencyclidine Scrn NEGATIVE Ur Amphetamines Screen NEGATIVE U Methamphetamin-MDMA NEGATIVE U Benzodiazepines Scrn NEGATIVE Urine Cocaine Screen NEGATIVE U Cannabinoids Screen NEGATIVE Ur Drug Screen Comment Ethyl Alcohol POC Glucose 104 08/05/18 08/05/18 14:33 15:20 WBC RBC Hgb Hct MCV MCH MCHC RDW RDW Differential Plt Count MPV Immature Gran % (Auto) Neut % (Auto) Lymph % (Auto) [place] % (Auto) Eos % (Auto) Baso % (Auto) Absolute Neuts (auto) Absolute Lymphs (auto) Total Counted PT INR APTT Specimen Type ART Sample Site L Radial pH 7.32 L Bicarbonate Actual 27.2 H POC Total CO2 29 Base Excess 1 O2 Saturation 97 ABG pCO2 52.9 H ABG pO2 103 H [place] Test NA O2 Delivery Device Nasal Can Liter Flow 3.0 Blood Gas Notified Whom ED Blood Gas Notified Time 1426 Sodium Potassium Chloride Carbon Dioxide Anion Gap BUN Creatinine Estim Creat Clear Calc Est GFR (MDRD) Af Amer Est GFR (MDRD) Non-Af BUN/Creatinine Ratio Glucose Lactic Acid Calcium Total Bilirubin AST ALT Alkaline Phosphatase Troponin I Total Protein Albumin Globulin Albumin/Globulin Ratio Urine Color Urine Clarity Urine pH Ur Specific [place] Urine Protein Urine Glucose (UA) Urine Ketones Urine Occult Blood Urine Nitrite Urine Bilirubin Urine Urobilinogen Ur Leukocyte Esterase Urine RBC Urine WBC Ur Squamous Epith Cells Urine Bacteria Urine Mucus Urine Opiates Screen Urine Methadone Screen Ur Barbiturates Screen Ur Phencyclidine Scrn Ur Amphetamines Screen U Methamphetamin-MDMA U Benzodiazepines Scrn Urine Cocaine Screen U Cannabinoids Screen Ur Drug Screen Comment Ethyl Alcohol POC Glucose 68 L Clinical Impression(s) from Imaging Studies Brain CT 08/05/18 13:17 IMPRESSION: Chronic involutional changes of the brain. Stable examination. Electronically Signed: Bentley Montejo MD at 15:12 EST Tel [phone], Service support , Chest X-Ray 08/05/18 13:17 IMPRESSION: Findings suggest a mild degree of CHF with a possible scarring in the right lower lobe. Electronically Signed: Bentley Montejo MD at 13:55 EST Tel [phone], Service support , Medications Given Discontinued Medications Albuterol Sulfate (Ventolin Aerosols) 2.5 mg INHALATION X1 ONE Stop: 08/05/18 15:13 Last Admin: 08/05/18 15:33 Dose: 2.5 mg Albuterol/Ipratropium (Duoneb) 3 ml INHALATION X1 ONE Stop: 08/05/18 15:13 Last Admin: 08/05/18 15:33 Dose: 3 ml Dextrose (D50w Syringe) 12.5 gm IV X1 ONE Stop: 08/05/18 13:51 Last Admin: 08/05/18 13:51 Dose: 12.5 gm Dextrose (D50w Syringe) 12.5 gm IV X1 ONE Stop: 08/05/18 15:23 Last Admin: 08/05/18 15:26 Dose: 12.5 gm Sodium Chloride () 500 mls @ 1,000 mls/hr IV .Q30M SHADY Stop: 08/05/18 13:59 Last Admin: 08/05/18 13:39 Dose: 1,000 mls/hr Emergency Department Course and Treatment: Patient presents altered mental status of unknown origin, with possible tramadol use which is not prescribed. Blood sugar was checked and patient was hypoglycemic at 58. She was given D50. Labs showed no significant abnormalities. Lactate normal at 1.7. Troponin negative. U tox negative. Alcohol negative. EKG showed atrial fibrillation at a rate of 61. Chest x-ray showed hypoventilation without any obvious infiltrate. ABG performed showing a respiratory acidosis with hypercarbia of 53. No hypoxia. Patient was given a trial dose of Narcan without any improvement in her level of consciousness. She did have brief episodes of significant bradycardia in the 30s that returned back to A. fib in the 60s. Patient received gentle hydration due to initial hypotension. Blood pressure improved, and patient became more alert, answering more questions and saying she did not want to be in the hospital. However she would fall back asleep but was easily aroused. That she was started on noninvasive ventilation for concern for mild CHF and hypercarbia. She had a return of hypoglycemia and was treated again with D50. She was discussed with Dr. Fabian, who is familiar with this patient and the cycle of altered mental status, hypoglycemia and respiratory failure. Patient will be admitted to the PCU for further management. Treatment Plan: [] Disposition: [] Impression: Altered mental status, hypoglycemia, hypercarbic respiratory failure, noninvasive ventilation This note was generated with [employer] dictation software. It may contain incorrect words, spelling, and punctuation that were not noted in review of the chart prior to signing ED Disposition - Plan for ED Patient: Disposition: Acute Care Hospital [facility] Chief Complaint: Alt LOC
--- NOTE | 2018-08-05 13:22 | ED.DCSUM_ITS ---
- ER Visit Summary Date of Service: 08/05/18 Chief Complaint: Altered mental status History of Present Illness: The patient is a 63 F with history of COPD, obstructive sleep apnea, diabetes, hypertension, paroxysmal A. fib, and recent admission for respiratory failure and COPD exacerbation who presents for altered mental status today. Patient was noted to be lethargic at home. EMS was called and they asked patient if she had taken any medications. She handed them her son's tramadol bottle. History from the patient is limited secondary to her altered mental status. She denies any pain, shortness of breath or other complaints. Provided further history that patient has been taking her son's tra madol for headache. Pill count in the bottle does not show a significant number of missing. Physical Examination: Vital signs: afebrile, hemodynamically stable, no hypoxia on room air General: well nourished, well developed, somnolent but will arouse and answer questions Skin: warm, dry, no rash, no pallor HEENT: normocephalic and atraumatic; PERRL at 3 mm, EOMI, moist mucous membranes Cardiovascular: regular rate and rhythm without murmurs, no peripheral edema, 2+ pulses all distal extremities Respiratory: No increased work of breathing, lungs show mild rales and wheezing in the bases, exam limited secondary to body habitus Abdominal: Abdomen is soft, nontender with normoactive bowel sounds, no guarding or rebound, no masses MSK: Generalized weakness, no deformities Neuro: Somnolent. No facial droop, no focal deficits noted but exam limited secondary to patient's somnolence. Will rouse and answer questions then falls back asleep. Test Results: Abnormal Lab Results 08/05/18 08/05/18 08/05/18 13:05 13:05 13:05 WBC 10.3 RBC 4.20 Hgb 12.1 Hct 39.2 MCV 93.3 MCH 28.8 MCHC 30.9 L RDW 16.1 H RDW Differential 54.6 H Plt Count 214 MPV 10.2 Immature Gran % (Auto) 0.200 Neut % (Auto) 75.8 H Lymph % (Auto) 9.1 L [place] % (Auto) 10.4 H Eos % (Auto) 4.3 Baso % (Auto) 0.2 Absolute Neuts (auto) 7.8 H Absolute Lymphs (auto) 0.94 Total Counted Not Reportable PT 14.6 INR 1.1 APTT 32.4 Specimen Type Sample Site pH Bicarbonate Actual POC Total CO2 Base Excess O2 Saturation ABG pCO2 ABG pO2 [place] Test O2 Delivery Device Liter Flow Blood Gas Notified Whom Blood Gas Notified Time Sodium 142 Potassium 3.8 Chloride 106 Carbon Dioxide 31.0 Anion Gap 5 BUN 12 Creatinine 0.66 Estim Creat Clear Calc 69.00 Est GFR (MDRD) Af Amer 116 Est GFR (MDRD) Non-Af 96 BUN/Creatinine Ratio 18.2 Glucose 78 Lactic Acid Calcium 8.1 L Total Bilirubin 0.70 AST 8 L ALT 15 Alkaline Phosphatase 47 Troponin I < 0.015 Total Protein 6.6 Albumin 3.0 L Globulin 3.6 Albumin/Globulin Ratio 0.8 L Urine Color Urine Clarity Urine pH Ur Specific [place] Urine Protein Urine Glucose (UA) Urine Ketones Urine Occult Blood Urine Nitrite Urine Bilirubin Urine Urobilinogen Ur Leukocyte Esterase Urine RBC Urine WBC Ur Squamous Epith Cells Urine Bacteria Urine Mucus Urine Opiates Screen Urine Methadone Screen Ur Barbiturates Screen Ur Phencyclidine Scrn Ur Amphetamines Screen U Methamphetamin-MDMA U Benzodiazepines Scrn Urine Cocaine Screen U Cannabinoids Screen Ur Drug Screen Comment Ethyl Alcohol POC Glucose 08/05/18 08/05/18 08/05/18 13:05 13:32 13:35 WBC RBC Hgb Hct MCV MCH MCHC RDW RDW Differential Plt Count MPV Immature Gran % (Auto) Neut % (Auto) Lymph % (Auto) [place] % (Auto) Eos % (Auto) Baso % (Auto) Absolute Neuts (auto) Absolute Lymphs (auto) Total Counted PT INR APTT Specimen Type Sample Site pH Bicarbonate Actual POC Total CO2 Base Excess O2 Saturation ABG pCO2 ABG pO2 [place] Test O2 Delivery Device Liter Flow Blood Gas Notified Whom Blood Gas Notified Time Sodium Potassium Chloride Carbon Dioxide Anion Gap BUN Creatinine Estim Creat Clear Calc Est GFR (MDRD) Af Amer Est GFR (MDRD) Non-Af BUN/Creatinine Ratio Glucose Lactic Acid 1.7 Calcium Total Bilirubin AST ALT Alkaline Phosphatase Troponin I Total Protein Albumin Globulin Albumin/Globulin Ratio Urine Color Urine Clarity Urine pH Ur Specific [place] Urine Protein Urine Glucose (UA) Urine Ketones Urine Occult Blood Urine Nitrite Urine Bilirubin Urine Urobilinogen Ur Leukocyte Esterase Urine RBC Urine WBC Ur Squamous Epith Cells Urine Bacteria Urine Mucus Urine Opiates Screen Urine Methadone Screen Ur Barbiturates Screen Ur Phencyclidine Scrn Ur Amphetamines Screen U Methamphetamin-MDMA U Benzodiazepines Scrn Urine Cocaine Screen U Cannabinoids Screen Ur Drug Screen Comment Ethyl Alcohol < 3.0 POC Glucose 58 L 08/05/18 08/05/18 08/05/18 14:06 14:17 14:17 WBC RBC Hgb Hct MCV MCH MCHC RDW RDW Differential Plt Count MPV Immature Gran % (Auto) Neut % (Auto) Lymph % (Auto) [place] % (Auto) Eos % (Auto) Baso % (Auto) Absolute Neuts (auto) Absolute Lymphs (auto) Total Counted PT INR APTT Specimen Type Sample Site pH Bicarbonate Actual POC Total CO2 Base Excess O2 Saturation ABG pCO2 ABG pO2 [place] Test O2 Delivery Device Liter Flow Blood Gas Notified Whom Blood Gas Notified Time Sodium Potassium Chloride Carbon Dioxide Anion Gap BUN Creatinine Estim Creat Clear Calc Est GFR (MDRD) Af Amer Est GFR (MDRD) Non-Af BUN/Creatinine Ratio Glucose Lactic Acid Calcium Total Bilirubin AST ALT Alkaline Phosphatase Troponin I Total Protein Albumin Globulin Albumin/Globulin Ratio Urine Color Yellow Urine Clarity Clear Urine pH 6.5 Ur Specific [place] 1.005 Urine Protein Negative Urine Glucose (UA) Normal Urine Ketones Negative Urine Occult Blood Negative Urine Nitrite Negative Urine Bilirubin Negative Urine Urobilinogen Normal Ur Leukocyte Esterase Negative Urine RBC 0 SEEN Urine WBC 0 SEEN Ur Squamous Epith Cells 0 SEEN Urine Bacteria 0 SEEN Urine Mucus 0 SEEN Urine Opiates Screen NEGATIVE Urine Methadone Screen NEGATIVE Ur Barbiturates Screen NEGATIVE Ur Phencyclidine Scrn NEGATIVE Ur Amphetamines Screen NEGATIVE U Methamphetamin-MDMA NEGATIVE U Benzodiazepines Scrn NEGATIVE Urine Cocaine Screen NEGATIVE U Cannabinoids Screen NEGATIVE Ur Drug Screen Comment Ethyl Alcohol POC Glucose 104 08/05/18 08/05/18 14:33 15:20 WBC RBC Hgb Hct MCV MCH MCHC RDW RDW Differential Plt Count MPV Immature Gran % (Auto) Neut % (Auto) Lymph % (Auto) [place] % (Auto) Eos % (Auto) Baso % (Auto) Absolute Neuts (auto) Absolute Lymphs (auto) Total Counted PT INR APTT Specimen Type ART Sample Site L Radial pH 7.32 L Bicarbonate Actual 27.2 H POC Total CO2 29 Base Excess 1 O2 Saturation 97 ABG pCO2 52.9 H ABG pO2 103 H [place] Test NA O2 Delivery Device Nasal Can Liter Flow 3.0 Blood Gas Notified Whom ED Blood Gas Notified Time 1426 Sodium Potassium Chloride Carbon Dioxide Anion Gap BUN Creatinine Estim Creat Clear Calc Est GFR (MDRD) Af Amer Est GFR (MDRD) Non-Af BUN/Creatinine Ratio Glucose Lactic Acid Calcium Total Bilirubin AST ALT Alkaline Phosphatase Troponin I Total Protein Albumin Globulin Albumin/Globulin Ratio Urine Color Urine Clarity Urine pH Ur Specific [place] Urine Protein Urine Glucose (UA) Urine Ketones Urine Occult Blood Urine Nitrite Urine Bilirubin Urine Urobilinogen Ur Leukocyte Esterase Urine RBC Urine WBC Ur Squamous Epith Cells Urine Bacteria Urine Mucus Urine Opiates Screen Urine Methadone Screen Ur Barbiturates Screen Ur Phencyclidine Scrn Ur Amphetamines Screen U Methamphetamin-MDMA U Benzodiazepines Scrn Urine Cocaine Screen U Cannabinoids Screen Ur Drug Screen Comment Ethyl Alcohol POC Glucose 68 L Clinical Impression(s) from Imaging Studies Brain CT 08/05/18 13:17 IMPRESSION: Chronic involutional changes of the brain. Stable examination. Electronically Signed: Bentley Montejo MD at 15:12 EST Tel [phone], Service support , Chest X-Ray 08/05/18 13:17 IMPRESSION: Findings suggest a mild degree of CHF with a possible scarring in the right lower lobe. Electronically Signed: Bentley Montejo MD at 13:55 EST Tel [phone], Service support , Medications Given Discontinued Medications Albuterol Sulfate (Ventolin Aerosols) 2.5 mg INHALATION X1 ONE Stop: 08/05/18 15:13 Last Admin: 08/05/18 15:33 Dose: 2.5 mg Albuterol/Ipratropium (Duoneb) 3 ml INHALATION X1 ONE Stop: 08/05/18 15:13 Last Admin: 08/05/18 15:33 Dose: 3 ml Dextrose (D50w Syringe) 12.5 gm IV X1 ONE Stop: 08/05/18 13:51 Last Admin: 08/05/18 13:51 Dose: 12.5 gm Dextrose (D50w Syringe) 12.5 gm IV X1 ONE Stop: 08/05/18 15:23 Last Admin: 08/05/18 15:26 Dose: 12.5 gm Sodium Chloride () 500 mls @ 1,000 mls/hr IV .Q30M SHADY Stop: 08/05/18 13:59 Last Admin: 08/05/18 13:39 Dose: 1,000 mls/hr Emergency Department Course and Treatment: Patient presents altered mental status of unknown origin, with possible tramadol use which is not prescribed. Blood sugar was checked and patient was hypoglycemic at 58. She was given D50. Labs showed no significant abnormalities. Lactate normal at 1.7. Troponin negative. U tox negative. Alcohol negative. EKG showed atrial fibrillation at a rate of 61. Chest x-ray showed hypoventilation without any obvious infiltrat e. ABG performed showing a respiratory acidosis with hypercarbia of 53. No hypoxia. Patient was given a trial dose of Narcan without any improvement in her level of consciousness. She did have brief episodes of significant bradycardia in the 30s that returned back to A. fib in the 60s. Patient received gentle hydration due to initial hypotension. Blood pressure improved, and patient became more alert, answering more questions and saying she did not want to be in the hospital. However she would fall back asleep but was easily aroused. That she was started on noninvasive ventilation for concern for mild CHF and hypercarbia. She had a return of hypoglycemia and was treated again with D50. She was discussed with Dr. Fabian, who is familiar with this patient and the cycle of altered mental status, hypoglycemia and respiratory failure. Patient will be admitted to the PCU for further management. Treatment Plan: [] Disposition: [] Impression: Altered mental status, hypoglycemia, hypercarbic respiratory failure, noninvasive ventilation This note was generated with [employer] software. It may contain incorrect words, spelling, and punctuation that were not noted in review of the chart prior to signing ED Disposition - Plan for ED Patient: Disposition: Acute Care Hospital [facility] Chief Complaint: Alt LOC
[2018-08-05 13:30] LABS: Absolute Lymphocyte Count 0.94 X10^3/ul (0.83-4.51); Absolute Neutrophil Count 7.8 X10^3/uL (2.0-7.7); Basophil# 0.02 X10^3/uL; Basophil% 0.2 % (0-1); Eosinophil# 0.44 X10^3/uL; Eosinophils% 4.3 % (0-5); Hematocrit 39.2 % (37-47); Hemoglobin 12.1 g/dl (12.0-15.0); Lymphocyte # 0.94 X10^3/ul (4.0); Lymphocyte % 9.1 % (19-41); Mean Corp Hgb Conc 30.9 g/gl (32-36); Mean Corpuscular Hgb 28.8 pg (27.0-32.0); Mean Corpuscular Volume 93.3 fL (81-99); Mean Platelet Vol. 10.2 fl (6.2-12.0); Monocyte# 1.07 X10^3/uL; Monocyte% 10.4 % (0-10); Neutrophil # 7.83 X10^3/uL (2.7-7.7); Neutrophil % 75.8 % (47-70); Platelet Count 214 K/mm3 (150-450); RBC Distribution Width CV 16.1 % (11.6-14.6); RBC Distribution Width SD 54.6 fl (35.1-43.9); White Blood Count 10.3 K/mm3 (4.4-11.0)
[2018-08-05 13:31] LABS: POSITIVE COUNT NO; POSITIVE DIFFERENTIAL NO; POSITIVE MORPHOLOGY NO
[2018-08-05 13:33] LABS: International Normalized Ratio 1.1; Prothrombin Time (Protime)PT. 14.6 SECONDS (11.7-14.9)
[2018-08-05 13:34] LABS: Partial Thromboplast Time 32.4 Seconds (24.1-36.2)
[2018-08-05 13:36] LABS: Bedside Glucose 58 mg/dL (70-110)
[2018-08-05 13:39] LABS: ALB/GLOB Ratio 0.8 RATIO (0.9-2.4); AST(SGOT) 8 U/L (15-37); Alanine Aminotransfer ALT/SGPT 15 U/L (13-56); Alkaline Phosphatase 47 U/L (45-117); Anion Gap 5 (5-15); BUN 12 mg/dL (7-18); BUN/Creat Ratio 18.2 RATIO (10-20); Calcium,Total 8.1 mg/dL (8.5-10.1); Chloride 106 mmol/L (98-107); Creatinine, Serum 0.66 mg/dL (0.55-1.02); EST Glomerular Filtration Rate 96 mL/min (>60); Est Glom Filt Rate - Afr Amer 116 mL/min (>60); Globulin 3.6 g/dL (2.2-4.2); Glucose 78 mg/dL (74-106); Potassium 3.8 mmol/L (3.5-5.1); Protein, Total 6.6 g/dL (6.4-8.2); Sodium Level 142 mmol/L (136-145)
[2018-08-05 13:49] LABS: Alcohol, Blood (Medical)-Serum < 3.0 mg/dL
[2018-08-05] MEDS: Dextrose 50%-Water 25 GM/50 ML DISP.SYRIN IV ×3 (13:51→21:17)
--- NOTE | 2018-08-05 13:52 | ED.RN ---
PT GIVEN 1/2 AMP OF D50. PT RESPONDS SLIGHTLY BUT NOT AWAKE AND ALERT.PT REMAINS LETHARGIC
--- NOTE | 2018-08-05 14:06 | ED.RN ---
dr office calls to state that there may be a security issue with son
[2018-08-05 14:07] LABS: Lactic Acid 1.7 mmol/L (0.4-2.0)
[2018-08-05 14:16] LABS: Bedside Glucose 104 mg/dL (70-110)
[2018-08-05 14:23] LABS: Bacteria 0 SEEN /hpf (None Seen); Mucous, Urine 0 SEEN /hpf (<or=2+); Red Blood Cells-Urine 0 SEEN /hpf (0-5); Squamous Epithelial Cells - UA 0 SEEN /hpf (5-10); White Blood Cells 0 SEEN /hpf (0-5)
--- NOTE | 2018-08-05 14:26 | ED.RN ---
care coordinated chace called to inform staff about security issue with son. states also talked with sister who states pt has been taking the sons tramadol for headache
[2018-08-05 14:28] LABS: Color, Urine Yellow (Yellow); Glucose, Dipstick Normal (Normal); Ketone-Dipstick Negative (Negative); Leukocyte Esterase-Dipstick Negative /ul (Negative); Nitrite-Dipstick Negative (Negative); Occult Blood-Urine Negative /ul (Negative); Protein-Dipstick Negative (Negative); Specific Gravity, Urine 1.005 (1.002-1.030); Urine Bilirubin Dipstick Negative (Negative); Urine Clarity Clear (Clear); Urine Urobilinogen Normal (Normal); Urine pH 6.5 (5.0 - 8.0)
[2018-08-05 14:39] LABS: Amphetamine Urine VISTA NEGATIVE (<1000 ng/mL); Barbiturate Urine VISTA NEGATIVE (< 200 ng/mL); Benzodiazepine Urine VISTA NEGATIVE (< 200 ng/mL); Cocaine Urine VISTA NEGATIVE (< 300 ng/mL); Ecstacy Urine VISTA NEGATIVE (< 500 ng/mL); Methadone Urine VISTA NEGATIVE (< 300 ng/mL); PCP Urine VISTA NEGATIVE (< 25 ng/mL); THC Urine VISTA NEGATIVE (< 50 ng/mL); Vista UDS pH Range 6
[2018-08-05 14:41] LABS: Base Excess 1 mmol/L (-2 to +2); Bicarbonate 27.2 mmol/L (22-26); Blood Gas Specimen Type ART; O2 Delivery Device Nasal Can; PO2 103 mmHG (75-100); SITE L Radial; SO2 97 % (95-99); Time Given 1426; Total Carbon Dioxide 29 mmol/L; pCO2 52.9 mmHg (35-45); pH 7.32 (7.35-7.45)
--- NOTE | 2018-08-05 14:53 | ED.RN ---
PT HEART CONTINUES TO DROP AND WAVER IN THE [address] VALDERRAMA MADE AWARE ON MULTIPLE OCCASSIONS. PT ORDERED 1 MG OF NARCAN GIVEN PER TIA SANTOS. NO CHANGE IN PT NOTED. THIS RN PLACED PT ON DEFIB PADS
--- NOTE | 2018-08-05 14:56 | ED.RN ---
PT STATES TO THIS RN. I FEEL VERY WEIRD. HR 39
--- NOTE | 2018-08-05 15:22 | EKG12_ITS ---
Test Reason : TAJ Blood Pressure : / mmHG Vent. Rate : 056 BPM Atrial Rate : 326 BPM P-R Int : 000 ms QRS Dur : 072 ms QT Int : 450 ms P-R-T Axes : 000 -09 218 degrees QTc Int : 434 ms Atrial fibrillation with slow ventricular response ST & T wave abnormality, consider lateral ischemia Abnormal ECG Confirmed by ALETA ABRAHAM, ALVAREZ ([id number]), box office agent SHYANNE TERRAZAS ([id number]) on 08/07/2018 3:21:48 PM Referred By: MELISA Confirmed By:ALVAREZ RIVER MD
[2018-08-05 15:26] LABS: Bedside Glucose 68 mg/dL (70-110)
[2018-08-05] MEDS: Ipratropium/Albuterol Sulfate 3 ML AMPUL.NEB INHALATION (15:33)
[2018-08-05] MEDS: Albuterol 2.5 MG/3 ML VIAL.NEB. INHALATION (15:33)
--- NOTE | 2018-08-05 15:48 | PCM.HP.STD ---
Problem List (1) Mental status alteration Status: Acute Qualifiers: Altered mental status type: somnolence History of Present Illness Date of Admission: 08/05/18 Chief Complaint: somnolent The patient is a 63 year old F patient presents with change in mental status. Patient was noted to be lethargic at home. EMS was called and when they arrived asked patient if she had taken any medications. She had handed them her son's tramadol bottle. Patient received a dose of Narcan Narcan with minimal no improvement. Patient eventually has come to somewhat but still groggy and does off during conversation. Patient states that she only took too little tramadol's. Patient readily admits to taking her son's tramadol is very concerned about her back pain. Other history is essentially unobtainable as patient is groggy and falls asleep during the encounter several times. [] Past Medical History Past Medical History (Chronic Problems): Chronic Problems Paroxysmal A-fib (Chronic) Diabetes mellitus type 2 in obese (Chronic) Coronary arteriosclerosis (Chronic) cath 05/2015 mild-moderate disease medical therapy recommended Hypothyroidism (Chronic) Hyperlipemia (Chronic) GERD (gastroesophageal reflux disease) (Chronic) Hypertension (Chronic) COPD (chronic obstructive pulmonary disease) (Chronic) Chronic respiratory insufficiency (Chronic) On home oxygen at night S/P PTCA (percutaneous transluminal coronary angioplasty) (Chronic) PARESH (obstructive sleep apnea) (Chronic) Allergies ciprofloxacin [From Cipro] Allergy (Verified 07/25/18 06:11) Hives latex Allergy (Verified 07/25/18 06:11) matos me niacin [From Niaspan Extended-Release] Allergy (Verified 07/25/18 06:11) Hives ondansetron [From Zofran] Allergy (Verified 07/25/18 06:11) Unknown Xanthines Allergy (Verified 07/25/18 06:11) Unknown orphenadrine citrate [From Norgesic] Adverse Reaction (Verified 07/25/18 06:11) groggy medical tape Adverse Reaction (Uncoded 07/25/18 06:11) blisters Home Medications: Ambulatory Orders Medication Instructions Recorded Albuterol Inhaler [Ventolin Hfa] 2 puff INHALATION Q4H PRN PRN 02/03/18 Atorvastatin Calcium [Lipitor] 40 mg PO DAILY 02/03/18 Diltiazem HCl [Cartia Xt] 180 mg PO DAILY 02/03/18 Docusate Sodium [Stool Softener] 100 mg PO DAILY 02/03/18 Duloxetine Hcl [Cymbalta] 60 mg PO DAILY 02/03/18 Insulin Lispro [Humalog KwikPen] 22 unit SQ LUNCH 02/03/18 Insulin Lispro [Humalog KwikPen] 24 unit SQ DINNER 02/03/18 Insulin Lispro [Humalog] 16 unit SQ BREAKFAST 02/03/18 Isosorbide Mononitrate [Imdur] 90 mg PO DAILY 02/03/18 Levothyroxine [Synthroid] 100 mcg PO DAILY 02/03/18 Apixaban [Eliquis] 2.5 mg PO BID 05/17/18 Ascorbic Acid [Vitamin C] 500 mg PO DAILY@0800 05/17/18 Metoprolol Tartrate [Lopressor] 100 mg PO BID 05/17/18 Omeprazole [Prilosec] 20 mg PO DAILY 05/17/18 Pregabalin [Lyrica] 100 mg PO TID 05/17/18 Sennosides [Claudai-Ramila] 8.6 mg PO BID 05/17/18 Aspirin [Aspirin EC] 81 mg PO DAILY 07/22/18 Doxycycline Monohydrate 100 mg PO BID #20 cap 07/22/18 Ferrous Gluconate 324 mg PO DAILY 07/22/18 Fluticasone Propionate 2 sprays NASAL DAILY 07/22/18 Ibuprofen 400 mg PO Q6H PRN PRN 07/22/18 Insulin Glargine [Lantus SoloStar 36 units SC BID 07/22/18 Pen] Metformin(XR) [Glucophage Xr] 1,000 mg PO BID 07/22/18 busPIRone [Buspar] 7.5 mg PO BID 07/25/18 Prednisone 4 tab PO DAILY #20 tablet 07/26/18 Albuterol IH (ProAir) [Proair Hfa] 2 puff INHALATION Q4H PRN PRN 08/05/18 Buspirone HCl 7.5 mg PO BID 08/05/18 Surgical History: angioplasty, cholecystectomy, herniorrhaphy, hysterectomy, - - tubal ligation. 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 Maternal History Items: No pertinent history Paternal History Items: Heart Disease, Stroke - age 62 Offspring History Items: No pertinent history - 5 children, 32 grand children and great grandchildren Review of Systems Comment: Unable to adequately obtain as the patient constantly dozes off during the encounter than stated that she has back pain. VTE Information - Inpt Only VTE Present on Admission: No VTE Pharm Prophylaxis ordered?: Yes - Physical Exam General: - - Groggy. Afebrile. No respiratory distress. Falls asleep several times during encounter. HEENT: Atraumatic, Normocephalic Oral: Moist Mucosa, No Gingival or Mucosal Lesions/ Ulcerations Neck: No Nodes, Thyroid Normal Size and Texture Lungs: Clear to auscultation, No rhonchi, No wheeze, Diminished Cardiovascular: Regular rate, Regular Rhythm, Normal S1, Normal S2, No murmurs Abdomen: Bowel Sounds Present, Soft, Non Tender, Non-Distended, No Hepato-splenomegaly Extremities: No edema, No Calf Tenderness Skin: No rashes, No breakdown Musculoskeletal: No Tenderness to Palpation of Joints or Extremities, No Muscle Wasting Neurological: Neuro grossly intact, Muscle tone normal, - - Somnolent. Psych/Mental Status: Agitated, Flat Affect Vital Signs Temp Pulse Resp BP Pulse Ox 36.9 C 42 L 16 100/52 L 97 08/05/18 12:53 08/05/18 14:58 08/05/18 14:58 08/05/18 14:58 08/05/18 14:58 Oxygen Flow Rate (L/min) 3 Oxygen Delivery Method Nasal Cannula Weight: 101.2 kg Body Mass Index (BMI) 40.8 Finger Stick Blood Glucose 68 Laboratory Tests Past 24 Hrs 08/05/18 08/05/18 08/05/18 13:05 13:05 13:05 WBC 10.3 RBC 4.20 Hgb 12.1 Hct 39.2 MCV 93.3 MCH 28.8 MCHC 30.9 L RDW 16.1 H RDW Differential 54.6 H Plt Count 214 MPV 10.2 Immature Gran % (Auto) 0.200 Neut % (Auto) 75.8 H Lymph % (Auto) 9.1 L [place] % (Auto) 10.4 H Eos % (Auto) 4.3 Baso % (Auto) 0.2 Absolute Neuts (auto) 7.8 H Absolute Lymphs (auto) 0.94 Total Counted Not Reportable PT 14.6 INR 1.1 APTT 32.4 Specimen Type Sample Site pH Bicarbonate Actual POC Total CO2 Base Excess O2 Saturation ABG pCO2 ABG pO2 [place] Test O2 Delivery Device Liter Flow Blood Gas Notified Whom Blood Gas Notified Time Sodium 142 Potassium 3.8 Chloride 106 Carbon Dioxide 31.0 Anion Gap 5 BUN 12 Creatinine 0.66 Estim Creat Clear Calc 69.00 Est GFR (MDRD) Af Amer 116 Est GFR (MDRD) Non-Af 96 BUN/Creatinine Ratio 18.2 Glucose 78 Lactic Acid Calcium 8.1 L Total Bilirubin 0.70 AST 8 L ALT 15 Alkaline Phosphatase 47 Troponin I < 0.015 Total Protein 6.6 Albumin 3.0 L Globulin 3.6 Albumin/Globulin Ratio 0.8 L Urine Color Urine Clarity Urine pH Ur Specific [place] Urine Protein Urine Glucose (UA) Urine Ketones Urine Occult Blood Urine Nitrite Urine Bilirubin Urine Urobilinogen Ur Leukocyte Esterase Urine RBC Urine WBC Ur Squamous Epith Cells Urine Bacteria Urine Mucus Urine Opiates Screen Urine Methadone Screen Ur Barbiturates Screen Ur Phencyclidine Scrn Ur Amphetamines Screen U Methamphetamin-MDMA U Benzodiazepines Scrn Urine Cocaine Screen U Cannabinoids Screen Ur Drug Screen Comment Ethyl Alcohol 08/05/18 08/05/18 08/05/18 13:05 13:35 14:17 WBC RBC Hgb Hct MCV MCH MCHC RDW RDW Differential Plt Count MPV Immature Gran % (Auto) Neut % (Auto) Lymph % (Auto) [place] % (Auto) Eos % (Auto) Baso % (Auto) Absolute Neuts (auto) Absolute Lymphs (auto) Total Counted PT INR APTT Specimen Type Sample Site pH Bicarbonate Actual POC Total CO2 Base Excess O2 Saturation ABG pCO2 ABG pO2 [place] Test O2 Delivery Device Liter Flow Blood Gas Notified Whom Blood Gas Notified Time Sodium Potassium Chloride Carbon Dioxide Anion Gap BUN Creatinine Estim Creat Clear Calc Est GFR (MDRD) Af Amer Est GFR (MDRD) Non-Af BUN/Creatinine Ratio Glucose Lactic Acid 1.7 Calcium Total Bilirubin AST ALT Alkaline Phosphatase Troponin I Total Protein Albumin Globulin Albumin/Globulin Ratio Urine Color Yellow Urine Clarity Clear Urine pH 6.5 Ur Specific [place] 1.005 Urine Protein Negative Urine Glucose (UA) Normal Urine Ketones Negative Urine Occult Blood Negative Urine Nitrite Negative Urine Bilirubin Negative Urine Urobilinogen Normal Ur Leukocyte Esterase Negative Urine RBC 0 SEEN Urine WBC 0 SEEN Ur Squamous Epith Cells 0 SEEN Urine Bacteria 0 SEEN Urine Mucus 0 SEEN Urine Opiates Screen Urine Methadone Screen Ur Barbiturates Screen Ur Phencyclidine Scrn Ur Amphetamines Screen U Methamphetamin-MDMA U Benzodiazepines Scrn Urine Cocaine Screen U Cannabinoids Screen Ur Drug Screen Comment Ethyl Alcohol < 3.0 08/05/18 08/05/18 14:17 14:33 WBC RBC Hgb Hct MCV MCH MCHC RDW RDW Differential Plt Count MPV Immature Gran % (Auto) Neut % (Auto) Lymph % (Auto) [place] % (Auto) Eos % (Auto) Baso % (Auto) Absolute Neuts (auto) Absolute Lymphs (auto) Total Counted PT INR APTT Specimen Type ART Sample Site L Radial pH 7.32 L Bicarbonate Actual 27.2 H POC Total CO2 29 Base Excess 1 O2 Saturation 97 ABG pCO2 52.9 H ABG pO2 103 H [place] Test NA O2 Delivery Device Nasal Can Liter Flow 3.0 Blood Gas Notified Whom ED Blood Gas Notified Time 1426 Sodium Potassium Chloride Carbon Dioxide Anion Gap BUN Creatinine Estim Creat Clear Calc Est GFR (MDRD) Af Amer Est GFR (MDRD) Non-Af BUN/Creatinine Ratio Glucose Lactic Acid Calcium Total Bilirubin AST ALT Alkaline Phosphatase Troponin I Total Protein Albumin Globulin Albumin/Globulin Ratio Urine Color Urine Clarity Urine pH Ur Specific [place] Urine Protein Urine Glucose (UA) Urine Ketones Urine Occult Blood Urine Nitrite Urine Bilirubin Urine Urobilinogen Ur Leukocyte Esterase Urine RBC Urine WBC Ur Squamous Epith Cells Urine Bacteria Urine Mucus Urine Opiates Screen NEGATIVE Urine Methadone Screen NEGATIVE Ur Barbiturates Screen NEGATIVE Ur Phencyclidine Scrn NEGATIVE Ur Amphetamines Screen NEGATIVE U Methamphetamin-MDMA NEGATIVE U Benzodiazepines Scrn NEGATIVE Urine Cocaine Screen NEGATIVE U Cannabinoids Screen NEGATIVE Ur Drug Screen Comment Ethyl Alcohol POC Glucose 08/05/18 08/05/18 08/05/18 15:20 14:06 13:32 POC Glucose 68 L 104 58 L Clinical Impression(s) from Imaging Studies Brain CT 08/05/18 13:17 IMPRESSION: Chronic involutional changes of the brain. Stable examination. Electronically Signed: Bentley Montejo MD at 15:12 EST Tel [phone], Service support , Chest X-Ray 08/05/18 13:17 IMPRESSION: Findings suggest a mild degree of CHF with a possible scarring in the right lower lobe. Electronically Signed: Bentley Montejo MD at 13:55 EST Tel [phone], Service support , Assessment/Plan All Active Problems Mental status alteration (Acute) Acute on chronic respiratory failure with hypoxia and hypercapnia (Acute) COPD exacerbation (Acute) Possible pneumonia (Acute) Atrial fibrillation with RVR (Acute) Hypoglycemia (Acute) Acute metabolic encephalopathy (Acute) Acute respiratory failure with hypoxia (Acute) COPD with acute exacerbation (Acute) COPD with moderate acute bronchitis (Acute) Acute hypoglycemia (Acute) Abnormal nuclear stress test (Resolved) Pneumonia (Resolved) Septic shock (Resolved) 1. Change in mental status/toxic encephalopathy Feel that this is likely related the patient's tramadol that she has been taking including Lyrica, Cymbalta. No additional narcotics and will hold off on the patient's Lyrica as well as Cymbalta Advised patient that she will not be receiving any narcotics but patient groggily states that she will get up and leave but then quickly dozes off. 2. Chronic pain Patient is a high risk for given that she has really admitted to taking someone else's, her sons, tramadol and also with her encephalopathy. She is a high likelihood for overdose Pain control will be maintained through utilized non-narcotic medications. 3. COPD No acute process on x-ray Continue with her home medications No acute exacerbation at this time 4. Diabetes mellitus type 2 Patient is not encephalopathic due to hypoglycemia but has had hypoglycemic episodes. Continue with her home dosing of insulin but given hypoglycemic episode that she has had in the past, discontinue the Metformin 5. Bradycardia Patient is on combination of metoprolol and Cartia XT. Will discontinue the Cartia and monitor 6. Chronic atrial fibrillation Continue with metoprolol and Eliquis Code Visit OBSV E&M: [id number] Initial observation care L3
--- NOTE | 2018-08-05 15:58 | HP.PCM_ITS ---
Problem List (1) Mental status alteration Status: Acute Qualifiers: Altered mental status type: somnolence History of Present Illness Date of Admission: 08/05/18 Chief Complaint: somnolent The patient is a 63 year old F patient presents with change in mental status. Patient was noted to be lethargic at home. EMS was called and when they arrived asked patient if she had taken any medications. She had handed them her son's tramadol bottle. Patient received a dose of Narcan Narcan with minimal no improvement. Patient eventually has come to somewhat but still groggy and does off during conversation. Patient states that she only took too little tramadol's. Patient readily admits to taking her son's tramadol is very concerned about her back pain. Other history is essentially unobtainable as patient is groggy and falls asleep during the encounter several times. [] Past Medical History Past Medical History (Chronic Problems): Chronic Problems Paroxysmal A-fib (Chronic) Diabetes mellitus type 2 in obese (Chronic) Coronary arteriosclerosis (Chronic) cath 05/2015 mild-moderate disease medical therapy recommended Hypothyroidism (Chronic) Hyperlipemia (Chronic) GERD (gastroesophageal reflux disease) (Chronic) Hypertension (Chronic) COPD (chronic obstructive pulmonary disease) (Chronic) Chronic respiratory insufficiency (Chronic) On home oxygen at night S/P PTCA (percutaneous transluminal coronary angioplasty) (Chronic) PARESH (obstructive sleep apnea) (Chronic) Allergies ciprofloxacin [From Cipro] Allergy (Verified 07/25/18 06:11) Hives latex Allergy (Verified 07/25/18 06:11) matos me niacin [From Niaspan Extended-Release] Allergy (Verified 07/25/18 06:11) Hives ondansetron [From Zofran] Allergy (Verified 07/25/18 06:11) Unknown Xanthines Allergy (Verified 07/25/18 06:11) Unknown orphenadrine citrate [From Norgesic] Adverse Reaction (Verified 07/25/18 06:11) groggy medical tape Adverse Reaction (Uncoded 07/25/18 06:11) blisters Home Medications: Ambulatory Orders Medication Instructions Recorded Albuterol Inhaler [Ventolin Hfa] 2 puff INHALATION Q4H PRN PRN 02/03/18 Atorvastatin Calcium [Lipitor] 40 mg PO DAILY 02/03/18 Diltiazem HCl [Cartia Xt] 180 mg PO DAILY 02/03/18 Docusate Sodium [Stool Softener] 100 mg PO DAILY 02/03/18 Duloxetine Hcl [Cymbalta] 60 mg PO DAILY 02/03/18 Insulin Lispro [Humalog KwikPen] 22 unit SQ LUNCH 02/03/18 Insulin Lispro [Humalog KwikPen] 24 unit SQ DINNER 02/03/18 Insulin Lispro [Humalog] 16 unit SQ BREAKFAST 02/03/18 Isosorbide Mononitrate [Imdur] 90 mg PO DAILY 02/03/18 Levothyroxine [Synthroid] 100 mcg PO DAILY 02/03/18 Apixaban [Eliquis] 2.5 mg PO BID 05/17/18 Ascorbic Acid [Vitamin C] 500 mg PO DAILY@0800 05/17/18 Metoprolol Tartrate [Lopressor] 100 mg PO BID 05/17/18 Omeprazole [Prilosec] 20 mg PO DAILY 05/17/18 Pregabalin [Lyrica] 100 mg PO TID 05/17/18 Sennosides [Claudia-Ramila] 8.6 mg PO BID 05/17/18 Aspirin [Aspirin EC] 81 mg PO DAILY 07/22/18 Doxycycline Monohydrate 100 mg PO BID #20 cap 07/22/18 Ferrous Gluconate 324 mg PO DAILY 07/22/18 Fluticasone Propionate 2 sprays NASAL DAILY 07/22/18 Ibuprofen 400 mg PO Q6H PRN PRN 07/22/18 Insulin Glargine [Lantus SoloStar 36 units SC BID 07/22/18 Pen] Metformin(XR) [Glucophage Xr] 1,000 mg PO BID 07/22/18 busPIRone [Buspar] 7.5 mg PO BID 07/25/18 Prednisone 4 tab PO DAILY #20 tablet 07/26/18 Albuterol IH (ProAir) [Proair Hfa] 2 puff INHALATION Q4H PRN PRN 08/05/18 Buspirone HCl 7.5 mg PO BID 08/05/18 Surgical History: angioplasty, cholecystectomy, herniorrhaphy, hysterectomy, - - tubal ligation. 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 Maternal History Items: No pertinent history Paternal History Items: Heart Disease, Stroke - age 62 Offspring History Items: No pertinent history - 5 children, 32 grand children and great grandchildren Review of Systems Comment: Unable to adequately obtain as the patient constantly dozes off during the encounter than stated that she has back pain. VTE Information - Inpt Only VTE Present on Admission: No VTE Pharm Prophylaxis ordered?: Yes - Physical Exam General: - - Groggy. Afebrile. No respiratory distress. Falls asleep several times during encounter. HEENT: Atraumatic, Normocephalic Oral: Moist Mucosa, No Gingival or Mucosal Lesions/ Ulcerations Neck: No Nodes, Thyroid Normal Size and Texture Lungs: Clear to auscultation, No rhonchi, No wheeze, Diminished Cardiovascular: Regular rate, Regular Rhythm, Normal S1, Normal S2, No murmurs Abdomen: Bowel Sounds Present, Soft, Non Tender, Non-Distended, No Hepato-splen omegaly Extremities: No edema, No Calf Tenderness Skin: No rashes, No breakdown Musculoskeletal: No Tenderness to Palpation of Joints or Extremities, No Muscle Wasting Neurological: Neuro grossly intact, Muscle tone normal, - - Somnolent. Psych/Mental Status: Agitated, Flat Affect Vital Signs Temp Pulse Resp BP Pulse Ox 36.9 C 42 L 16 100/52 L 97 08/05/18 12:53 08/05/18 14:58 08/05/18 14:58 08/05/18 14:58 08/05/18 14:58 Oxygen Flow Rate (L/min) 3 Oxygen Delivery Method Nasal Cannula Weight: 101.2 kg Body Mass Index (BMI) 40.8 Finger Stick Blood Glucose 68 Laboratory Tests Past 24 Hrs 08/05/18 08/05/18 08/05/18 13:05 13:05 13:05 WBC 10.3 RBC 4.20 Hgb 12.1 Hct 39.2 MCV 93.3 MCH 28.8 MCHC 30.9 L RDW 16.1 H RDW Differential 54.6 H Plt Count 214 MPV 10.2 Immature Gran % (Auto) 0.200 Neut % (Auto) 75.8 H Lymph % (Auto) 9.1 L [place] % (Auto) 10.4 H Eos % (Auto) 4.3 Baso % (Auto) 0.2 Absolute Neuts (auto) 7.8 H Absolute Lymphs (auto) 0.94 Total Counted Not Reportable PT 14.6 INR 1.1 APTT 32.4 Specimen Type Sample Site pH Bicarbonate Actual POC Total CO2 Base Excess O2 Saturation ABG pCO2 ABG pO2 [place] Test O2 Delivery Device Liter Flow Blood Gas Notified Whom Blood Gas Notified Time Sodium 142 Potassium 3.8 Chloride 106 Carbon Dioxide 31.0 Anion Gap 5 BUN 12 Creatinine 0.66 Estim Creat Clear Calc 69.00 Est GFR (MDRD) Af Amer 116 Est GFR (MDRD) Non-Af 96 BUN/Creatinine Ratio 18.2 Glucose 78 Lactic Acid Calcium 8.1 L Total Bilirubin 0.70 AST 8 L ALT 15 Alkaline Phosphatase 47 Troponin I < 0.015 Total Protein 6.6 Albumin 3.0 L Globulin 3.6 Albumin/Globulin Ratio 0.8 L Urine Color Urine Clarity Urine pH Ur Specific [place] Urine Protein Urine Glucose (UA) Urine Ketones Urine Occult Blood Urine Nitrite Urine Bilirubin Urine Urobilinogen Ur Leukocyte Esterase Urine RBC Urine WBC Ur Squamous Epith Cells Urine Bacteria Urine Mucus Urine Opiates Screen Urine Methadone Screen Ur Barbiturates Screen Ur Phencyclidine Scrn Ur Amphetamines Screen U Methamphetamin-MDMA U Benzodiazepines Scrn Urine Cocaine Screen U Cannabinoids Screen Ur Drug Screen Comment Ethyl Alcohol 08/05/18 08/05/18 08/05/18 13:05 13:35 14:17 WBC RBC Hgb Hct MCV MCH MCHC RDW RDW Differential Plt Count MPV Immature Gran % (Auto) Neut % (Auto) Lymph % (Auto) [place] % (Auto) Eos % (Auto) Baso % (Auto) Absolute Neuts (auto) Absolute Lymphs (auto) Total Counted PT INR APTT Specimen Type Sample Site pH Bicarbonate Actual POC Total CO2 Base Excess O2 Saturation ABG pCO2 ABG pO2 [place] Test O2 Delivery Device Liter Flow Blood Gas Notified Whom Blood Gas Notified Time Sodium Potassium Chloride Carbon Dioxide Anion Gap BUN Creatinine Estim Creat Clear Calc Est GFR (MDRD) Af Amer Est GFR (MDRD) Non-Af BUN/Creatinine Ratio Glucose Lactic Acid 1.7 Calcium Total Bilirubin AST ALT Alkaline Phosphatase Troponin I Total Protein Albumin Globulin Albumin/Globulin Ratio Urine Color Yellow Urine Clarity Clear Urine pH 6.5 Ur Specific [place] 1.005 Urine Protein Negative Urine Glucose (UA) Normal Urine Ketones Negative Urine Occult Blood Negative Urine Nitrite Negative Urine Bilirubin Negative Urine Urobilinogen Normal Ur Leukocyte Esterase Negative Urine RBC 0 SEEN Urine WBC 0 SEEN Ur Squamous Epith Cells 0 SEEN Urine Bacteria 0 SEEN Urine Mucus 0 SEEN Urine Opiates Screen Urine Methadone Screen Ur Barbiturates Screen Ur Phencyclidine Scrn Ur Amphetamines Screen U Methamphetamin-MDMA U Benzodiazepines Scrn Urine Cocaine Screen U Cannabinoids Screen Ur Drug Screen Comment Ethyl Alcohol < 3.0 08/05/18 08/05/18 14:17 14:33 WBC RBC Hgb Hct MCV MCH MCHC RDW RDW Differential Plt Count MPV Immature Gran % (Auto) Neut % (Auto) Lymph % (Auto) [place] % (Auto) Eos % (Auto) Baso % (Auto) Absolute Neuts (auto) Absolute Lymphs (auto) Total Counted PT INR APTT Specimen Type ART Sample Site L Radial pH 7.32 L Bicarbonate Actual 27.2 H POC Total CO2 29 Base Excess 1 O2 Saturation 97 ABG pCO2 52.9 H ABG pO2 103 H [place] Test NA O2 Delivery Device Nasal Can Liter Flow 3.0 Blood Gas Notified Whom ED Blood Gas Notified Time 1426 Sodium Potassium Chloride Carbon Dioxide Anion Gap BUN Creatinine Estim Creat Clear Calc Est GFR (MDRD) Af Amer Est GFR (MDRD) Non-Af BUN/Creatinine Ratio Glucose Lactic Acid Calcium Total Bilirubin AST ALT Alkaline Phosphatase Troponin I Total Protein Albumin Globulin Albumin/Globulin Ratio Urine Color Urine Clarity Urine pH Ur Specific [place] Urine Protein Urine Glucose (UA) Urine Ketones Urine Occult Blood Urine Nitrite Urine Bilirubin Urine Urobilinogen Ur Leukocyte Esterase Urine RBC Urine WBC Ur Squamous Epith Cells Urine Bacteria Urine Mucus Urine Opiates Screen NEGATIVE Urine Methadone Screen NEGATIVE Ur Barbiturates Screen NEGATIVE Ur Phencyclidine Scrn NEGATIVE Ur Amphetamines Screen NEGATIVE U Methamphetamin-MDMA NEGATIVE U Benzodiazepines Scrn NEGATIVE Urine Cocaine Screen NEGATIVE U Cannabinoids Screen NEGATIVE Ur Drug Screen Comment Ethyl Alcohol POC Glucose 08/05/18 08/05/18 08/05/18 15:20 14:06 13:32 POC Glucose 68 L 104 58 L Clinical Impression(s) from Imaging Studies Brain CT 08/05/18 13:17 IMPRESSION: Chronic involutional changes of the brain. Stable examination. Electronically Signed: Bentley Montejo MD at 15:12 EST Tel [phone], Service support , Chest X-Ray 08/05/18 13:17 IMPRESSION: Findings suggest a mild degree of CHF with a possible scarring in the right lower lobe. Electronically Signed: Bentley Montejo MD at 13:55 EST Tel [phone], Service support , Assessment/Plan All Active Problems Mental status alteration (Acute) Acute on chronic respiratory failure with hypoxia and hypercapnia (Acute) COPD exacerbation (Acute) Possible pneumonia (Acute) Atrial fibrillation with RVR (Acute) Hypoglycemia (Acute) Acute metabolic encephalopathy (Acute) Acute respiratory failure with hypoxia (Acute) COPD with acute exacerbation (Acute) COPD with moderate acute bronchitis (Acute) Acute hypoglycemia (Acute) Abnormal nuclear stress test (Resolved) Pneumonia (Resolved) Septic shock (Resolved) 1. Change in mental status/toxic encephalopathy * Feel that this is likely related the patient's tramadol that she has been taking including Lyrica, Cymbalta. * No additional narcotics and will hold off on the patient's Lyrica as well as Cymbalta * Advised patient that she will not be receiving any narcotics but patient groggily states that she will get up and leave but then quickly dozes off. 2. Chronic pain * Patient is a high risk for given that she has really admitted to taking someone else's, her sons, tramadol and also with her encephalopathy. She is a high likelihood for overdose * Pain control will be maintained through utilized non-narcotic medications. 3. COPD * No acute process on x-ray * Continue with her home medications * No acute exacerbation at this time 4. Diabetes mellitus type 2 * Patient is not encephalopathic due to hypoglycemia but has had hypoglycemic episodes. * Continue with her home dosing of insulin but given hypoglycemic episode that she has had in the past, discontinue the Metformin 5. Bradycardia * Patient is on combination of metoprolol and Cartia XT. * Will discontinue the Cartia and monitor 6. Chronic atrial fibrillation * Continue with metoprolol and Eliquis Code Visit OBSV E&M: [id number] Initial observation care L3
--- NOTE | 2018-08-05 17:33 | CPS ---
Discussed with RN: Patient has order for BiPAP, entered by the ED Doctor. Patient is not currently needing BiPAP. The order can remain in, just in case the patient later requires BiPAP.
--- NOTE | 2018-08-05 17:59 | ED.RN ---
request made for case management consult to be placed for adult protective services to become involved in case. pe hro
--- NOTE | 2018-08-05 18:02 | NURSING ---
Ivy, patient's sister took the patient's purse and cellphone home.
[2018-08-05 19:01] LABS: BNP,B-Type NATRIURETIC PEPTIDE 158.4 pg/mL (0-100)
[2018-08-05] MEDS: Acetaminophen 500 MG Tablet 1000 MG PO (21:58)
[2018-08-05] MEDS: APIXABAN 2.5 MG TABLET PO (21:59)
[2018-08-05] MEDS: Senna Tablet 1 TABLET PO (21:59)
[2018-08-05] MEDS: Atorvastatin Calcium 40 MG Tablet PO (21:59)
[2018-08-06] VITALS (8 sets, daily range): BP systolic 127–150; BP diastolic 65–105; PULSE 74–96; RESP 18–20; TEMP 36.6–36.7; O2SAT 96–98
[2018-08-06 04:56] LABS: Bedside Glucose 113 mg/dL (70-110)
[2018-08-06] MEDS: Albuterol 2.5 MG/3 ML VIAL.NEB. 2 MG INHALATION (05:42)
[2018-08-06] MEDS: Acetaminophen 500 MG Tablet 1000 MG PO ×2 (05:44→14:00)
[2018-08-06] MEDS: Levothyroxine 100 MCG Tablet PO (05:44)
[2018-08-06] MEDS: Aspirin E.C. 81 MG Tablet PO (08:38)
[2018-08-06] MEDS: Fluticasone 0.05% 1 SPRAY NASAL.SRY 2 SPRAY NASAL (08:40)
[2018-08-06] MEDS: Ferrous Gluconate 324 MG Tablet PO (08:40)
[2018-08-06] MEDS: Isosorbide Mononitrate 30 MG Tablet 90 MG PO (08:40)
[2018-08-06] MEDS: Docusate Sodium 100 MG Capsule PO (08:41)
[2018-08-06] MEDS: Pantoprazole Sodium 20 MG Tablet PO (08:42)
[2018-08-06] MEDS: Metoprolol Tartrate 100 MG Tablet PO (08:42)
[2018-08-06] MEDS: Ascorbic Acid 500 MG Tablet PO (08:42)
[2018-08-06] MEDS: Senna Tablet 1 TABLET PO (08:43)
[2018-08-06] MEDS: APIXABAN 2.5 MG TABLET PO (08:43)
[2018-08-06] MEDS: Insulin Lispro 100 UNIT/ML INSULN.PEN 16 UNIT SC (08:56)
--- NOTE | 2018-08-06 09:54 | CASEMGMT ---
SW received referral to see patient regarding home situation. Patient is known to BLAKE from past admissions. BLAKE called [facility] and spoke with Yvon Thacker on the coverage line. Patient has up to 26 hours a week of aide services through [facility] in [place], a medical alert button, and [employer] delivered every other week. BLAKE met with patient, introduced self and role at [facility]. Patient said her sister now lives with her. She is on her lease with Jeffy so she is allowed to live with her. BLAKE asked if her sons live with her also and she said no. BLAKE then asked her how she ended up with her son's Ultram pills. She said she has talked to everyone about this already. She said she thought about it and she did not take Ultram. She took 2; 600 mg Ibuprofen. She is not sure why everyone says she took Ultram. BLAKE told her that the squad found a bottle of Tramadol that had her son's name on it right beside her when they came to get her. She said he was there the night before and left in a hurry so he left it there. BLAKE asked her again if he lives with her or stays at her place. She said no, he does not. BLAKE asked if she feels safe at home and she said she does. BLAKE asked if she plans on going home and she said she is going home and if anyone tries to force her there will be problems. BLAKE reassured her that no one can force her to go anywhere. BLAKE told her BLAKE will make sure [employer] knows she is here and when she leaves. BLAKE called patient's respiratory care assistant at [facility] as she called in yesterday with concerns regarding patient's son. BLAKE left her a message and told her to call BLAKE back if she needed to share anything more with BLAKE. Plan: d/c home with resumption of [employer] and [facility] retirement and PT. Charley ROLAND MSW
--- NOTE | 2018-08-06 10:33 | CASEMGMT ---
SW received call from Sandi, career technical education instructor at patient's PCP's office. She said she spoke with patient's sister and patient's son's have been staying with them off and on. She has called the police several times. However, this last time the police told her that she needs to sign a restraining order, but patient does not want to sign a restraining order. Patient's sister said patient is in fact taking her son's Tramadol for headaches. BLAKE told her SW can call APS, but it is unlikely they will be able to do anything as patient is allowing them to come around. BLAKE called Jasmine at Adult [facility] Services and left her a voice mail requesting a return call. Charley ROLAND MSW
--- NOTE | 2018-08-06 11:30 | CASEMGMT ---
BLAKE received return call from Jasmine at [facility]. BLAKE explained situation with patient, her sons, and taking her son's medication. She said that since patient is alert and oriented they are not able to do anything. Patient has lost housing in the past because her sons stay with her and they are not allowed. She is aware she will lose her housing again if they continue to stay with her even though she denies they are staying with her.
[2018-08-06 11:41] LABS: Bedside Glucose 66 mg/dL (70-110)
[2018-08-06 11:41] LABS: Bedside Glucose 127 mg/dL (70-110)
[2018-08-06 11:41] LABS: Bedside Glucose 87 mg/dL (70-110)
[2018-08-06] MEDS: Insulin Lispro 100 UNIT/ML INSULN.PEN 22 UNIT SC (11:41)
[2018-08-06 11:46] LABS: Bedside Glucose 248 mg/dL (70-110)
--- NOTE | 2018-08-06 11:59 | DCINST_ITS ---
You will use the following diet at home:: Calorie/Carbohydrate Controlled (specify 1200, 1400, etc) - 1800 calories/day, Cardiac Your food should be the consistency of: Regular Your liquids should be the consistency of: Regular/Thin Discharge Activity: Return to Normal Activity Call your doctor if your incision/area has: Continuous Slow Oozing Call your doctor if you observe: Fever of 101 or Higher, Shortness of breath Allergies/Adverse Reactions: Allergies ciprofloxacin [From Cipro] Allergy (Verified 07/25/18 06:11) Hives latex Allergy (Verified 07/25/18 06:11) matos me niacin [From Niaspan Extended-Release] Allergy (Verified 07/25/18 06:11) Hives ondansetron [From Zofran] Allergy (Verified 07/25/18 06:11) Unknown Xanthines Allergy (Verified 07/25/18 06:11) Unknown orphenadrine citrate [From Norgesic] Adverse Reaction (Verified 07/25/18 06:11) groggy medical tape Adverse Reaction (Uncoded 07/25/18 06:11) blisters Medications to take at Discharge Albuterol Inhaler [Ventolin Hfa] 2 puff INHALATION Q4H PRN PRN 02/03/18 Atorvastatin Calcium [Lipitor] 40 mg PO DAILY 02/03/18 Docusate Sodium [Stool Softener] 100 mg PO DAILY 02/03/18 Duloxetine Hcl [Cymbalta] 60 mg PO DAILY 02/03/18 Insulin Lispro [Humalog KwikPen] 22 unit SQ LUNCH 02/03/18 Insulin Lispro [Humalog KwikPen] 24 unit SQ DINNER 02/03/18 Insulin Lispro [Humalog] 16 unit SQ BREAKFAST 02/03/18 Isosorbide Mononitrate [Imdur] 90 mg PO DAILY 02/03/18 Levothyroxine [Synthroid] 100 mcg PO DAILY 02/03/18 Apixaban [Eliquis] 2.5 mg PO BID 05/17/18 Ascorbic Acid [Vitamin C] 500 mg PO DAILY@0800 05/17/18 Metoprolol Tartrate [Lopressor] 100 mg PO BID 05/17/18 Omeprazole [Prilosec] 20 mg PO DAILY 05/17/18 Pregabalin [Lyrica] 100 mg PO TID 05/17/18 Sennosides [Claudia-Ramila] 8.6 mg PO BID 05/17/18 Aspirin [Aspirin EC] 81 mg PO DAILY 07/22/18 Ferrous Gluconate 324 mg PO DAILY 07/22/18 Fluticasone Propionate 2 sprays NASAL DAILY 07/22/18 Insulin Glargine [Lantus SoloStar Pen] 36 units SC BID 07/22/18 busPIRone [Buspar] 7.5 mg PO BID 07/25/18 Albuterol IH (ProAir) [Proair Hfa] 2 puff INHALATION Q4H PRN PRN 08/05/18 Buspirone HCl 7.5 mg PO BID 08/05/18 Acetaminophen [Tylenol] 1,000 mg PO Q8 PRN tablet 08/06/18 Primary Care Physician: Bhupendra Oliveira MD [Primary Care Provider] - Within 2 Weeks Test Results: Test results from this visit will be discussed in further detail at your follow- up appointment, if applicable. Proposed Discharge Date: 08/06/18
--- NOTE | 2018-08-06 11:59 | PCM.DC.SUM ---
Discharge Date and Diagnosis - Problem List Patient Problems: Active and Suspected Problems Toxic encephalopathy (Acute) Bradycardia (Acute) Date of Admission: 08/05/18 Date of Discharge: 08/06/18 - Primary Discharge Diagnosis Active and Suspected Problems Bradycardia (Acute) 1. Change in mental status/toxic encephalopathy resolved Feel that this is likely related the patient's tramadol that she has been taking including Lyrica, Cymbalta. No additional narcotics and will hold off on the patient's Lyrica as well as Cymbalta Advised patient that she will not be receiving any narcotics but patient groggily states that she will get up and leave but then quickly dozes off. Though patient now denies Tramadol use, despite endorsing she took 2 little pills yesterday and found with bottle at home. 2. Chronic pain Patient is a high risk for given that she has really admitted to taking someone else's, her sons, tramadol and also with her encephalopathy. She is a high likelihood for overdose Pain control will be maintained through utilized non-narcotic medications. 3. COPD No acute process on x-ray Continue with her home medications No acute exacerbation at this time 4. Diabetes mellitus type 2 Patient is not encephalopathic due to hypoglycemia but has had hypoglycemic episodes. Continue with her home dosing of insulin but given hypoglycemic episode that she has had in the past, discontinue the Metformin 5. Bradycardia Improved Patient is on combination of metoprolol and Cartia XT. Will discontinue the Cartia and monitor 6. Chronic atrial fibrillation Continue with metoprolol and Eliquis - Secondary Discharge Diagnosis Chronic Problems Paroxysmal A-fib (Chronic) Diabetes mellitus type 2 in obese (Chronic) Coronary arteriosclerosis (Chronic) cath 05/2015 mild-moderate disease medical therapy recommended Hypothyroidism (Chronic) Hyperlipemia (Chronic) GERD (gastroesophageal reflux disease) (Chronic) Hypertension (Chronic) COPD (chronic obstructive pulmonary disease) (Chronic) Chronic respiratory insufficiency (Chronic) On home oxygen at night S/P PTCA (percutaneous transluminal coronary angioplasty) (Chronic) PARESH (obstructive sleep apnea) (Chronic) Hospital Course and Treatment Imaging Results: Clinical Impression(s) from Imaging Studies Brain CT 08/05/18 13:17 IMPRESSION: Chronic involutional changes of the brain. Stable examination. Electronically Signed: Bentley Montejo MD at 15:12 EST Tel [phone], Service support , Chest X-Ray 08/05/18 13:17 IMPRESSION: Findings suggest a mild degree of CHF with a possible scarring in the right lower lobe. Electronically Signed: Bentley Montejo MD at 13:55 EST Tel [phone], Service support , Operations: None Procedures: None Summary of Care Provided: The patient is a 63 year old F presents with confusion. EMS arrived and patient was found to have a bottle of tramadol. Patient did endorse taking 2 pills of tramadol. Patient did receive couple rounds of Narcan with minimal improvement. Patient but she did start coming to but was dozing off very easily. Patient was brought in and monitored. Patient also did have some bradycardia. Patient's Cartee was discontinued. Patient was on Cartia as well as metoprolol. The patient will continue with her metoprolol. Patient advised to avoid narcotics though now she is staying this that she did not Phenergan and ibuprofen. It were to avoid the Phenergan but the story seems to be evolving at this time. Patient does have history of hypoglycemia which she did not have any episodes here but recommend patient stop her metformin and continue with her insulin. The combination of the oral plus insulin may be leading to have hyperglycemic episodes which she has had in the past. [] Patient Problems: Active and Suspected Problems Toxic encephalopathy (Acute) Bradycardia (Acute) - Physical Exam General: Alert HEENT: Atraumatic, Normocephalic Oral: Moist Mucosa, No Gingival or Mucosal Lesions/ Ulcerations Lungs: Clear to auscultation, Normal air movement, Wheezes - upper respiratory. Cardiovascular: Regular rate, Regular Rhythm, Normal S1, Normal S2, No murmurs Abdomen: Bowel Sounds Present, Soft, Non Tender, Non-Distended, No Hepato-splenomegaly Extremities: No edema, No Calf Tenderness Psych/Mental Status: Normal Affect, Appropriate Vital Signs Temp Pulse Resp BP Pulse Ox 36.6 C 74 18 150/105 H 96 08/06/18 09:00 08/06/18 09:00 08/06/18 09:00 08/06/18 09:00 08/06/18 09:00 Oxygen Flow Rate (L/min) 3 Oxygen Delivery Method Nasal Cannula Weight: 95.8 kg Body Mass Index (BMI) 38.6 Finger Stick Blood Glucose 68 Intake and Output for Last 24 Hours 08/04/18 08/05/18 08/06/18 23:59 23:59 23:59 Intake Total 440 / 440 120 / 120 Output Total 950 / 950 525 / 525 Balance -510 / -510 -405 / -405 Laboratory Tests Past 24 Hrs 08/05/18 08/05/18 08/05/18 13:05 13:05 13:05 WBC 10.3 RBC 4.20 Hgb 12.1 Hct 39.2 MCV 93.3 MCH 28.8 MCHC 30.9 L RDW 16.1 H RDW Differential 54.6 H Plt Count 214 MPV 10.2 Immature Gran % (Auto) 0.200 Neut % (Auto) 75.8 H Lymph % (Auto) 9.1 L [place] % (Auto) 10.4 H Eos % (Auto) 4.3 Baso % (Auto) 0.2 Absolute Neuts (auto) 7.8 H Absolute Lymphs (auto) 0.94 Total Counted Not Reportable PT 14.6 INR 1.1 APTT 32.4 Specimen Type Sample Site pH Bicarbonate Actual POC Total CO2 Base Excess O2 Saturation ABG pCO2 ABG pO2 [place] Test O2 Delivery Device Liter Flow Blood Gas Notified Whom Blood Gas Notified Time Sodium 142 Potassium 3.8 Chloride 106 Carbon Dioxide 31.0 Anion Gap 5 BUN 12 Creatinine 0.66 Estim Creat Clear Calc 69.00 Est GFR (MDRD) Af Amer 116 Est GFR (MDRD) Non-Af 96 BUN/Creatinine Ratio 18.2 Glucose 78 Lactic Acid Calcium 8.1 L Total Bilirubin 0.70 AST 8 L ALT 15 Alkaline Phosphatase 47 Troponin I < 0.015 B-Natriuretic Peptide Total Protein 6.6 Albumin 3.0 L Globulin 3.6 Albumin/Globulin Ratio 0.8 L Urine Color Urine Clarity Urine pH Ur Specific [place] Urine Protein Urine Glucose (UA) Urine Ketones Urine Occult Blood Urine Nitrite Urine Bilirubin Urine Urobilinogen Ur Leukocyte Esterase Urine RBC Urine WBC Ur Squamous Epith Cells Urine Bacteria Urine Mucus Urine Opiates Screen Urine Methadone Screen Ur Barbiturates Screen Ur Phencyclidine Scrn Ur Amphetamines Screen U Methamphetamin-MDMA U Benzodiazepines Scrn Urine Cocaine Screen U Cannabinoids Screen Ur Drug Screen Comment Ethyl Alcohol 08/05/18 08/05/18 08/05/18 13:05 13:05 13:35 WBC RBC Hgb Hct MCV MCH MCHC RDW RDW Differential Plt Count MPV Immature Gran % (Auto) Neut % (Auto) Lymph % (Auto) [place] % (Auto) Eos % (Auto) Baso % (Auto) Absolute Neuts (auto) Absolute Lymphs (auto) Total Counted PT INR APTT Specimen Type Sample Site pH Bicarbonate Actual POC Total CO2 Base Excess O2 Saturation ABG pCO2 ABG pO2 [place] Test O2 Delivery Device Liter Flow Blood Gas Notified Whom Blood Gas Notified Time Sodium Potassium Chloride Carbon Dioxide Anion Gap BUN Creatinine Estim Creat Clear Calc Est GFR (MDRD) Af Amer Est GFR (MDRD) Non-Af BUN/Creatinine Ratio Glucose Lactic Acid 1.7 Calcium Total Bilirubin AST ALT Alkaline Phosphatase Troponin I B-Natriuretic Peptide 158.4 H Total Protein Albumin Globulin Albumin/Globulin Ratio Urine Color Urine Clarity Urine pH Ur Specific [place] Urine Protein Urine Glucose (UA) Urine Ketones Urine Occult Blood Urine Nitrite Urine Bilirubin Urine Urobilinogen Ur Leukocyte Esterase Urine RBC Urine WBC Ur Squamous Epith Cells Urine Bacteria Urine Mucus Urine Opiates Screen Urine Methadone Screen Ur Barbiturates Screen Ur Phencyclidine Scrn Ur Amphetamines Screen U Methamphetamin-MDMA U Benzodiazepines Scrn Urine Cocaine Screen U Cannabinoids Screen Ur Drug Screen Comment Ethyl Alcohol < 3.0 08/05/18 08/05/18 08/05/18 14:17 14:17 14:33 WBC RBC Hgb Hct MCV MCH MCHC RDW RDW Differential Plt Count MPV Immature Gran % (Auto) Neut % (Auto) Lymph % (Auto) [place] % (Auto) Eos % (Auto) Baso % (Auto) Absolute Neuts (auto) Absolute Lymphs (auto) Total Counted PT INR APTT Specimen Type ART Sample Site L Radial pH 7.32 L Bicarbonate Actual 27.2 H POC Total CO2 29 Base Excess 1 O2 Saturation 97 ABG pCO2 52.9 H ABG pO2 103 H [place] Test NA O2 Delivery Device Nasal Can Liter Flow 3.0 Blood Gas Notified Whom ED Blood Gas Notified Time 1426 Sodium Potassium Chloride Carbon Dioxide Anion Gap BUN Creatinine Estim Creat Clear Calc Est GFR (MDRD) Af Amer Est GFR (MDRD) Non-Af BUN/Creatinine Ratio Glucose Lactic Acid Calcium Total Bilirubin AST ALT Alkaline Phosphatase Troponin I B-Natriuretic Peptide Total Protein Albumin Globulin Albumin/Globulin Ratio Urine Color Yellow Urine Clarity Clear Urine pH 6.5 Ur Specific [place] 1.005 Urine Protein Negative Urine Glucose (UA) Normal Urine Ketones Negative Urine Occult Blood Negative Urine Nitrite Negative Urine Bilirubin Negative Urine Urobilinogen Normal Ur Leukocyte Esterase Negative Urine RBC 0 SEEN Urine WBC 0 SEEN Ur Squamous Epith Cells 0 SEEN Urine Bacteria 0 SEEN Urine Mucus 0 SEEN Urine Opiates Screen NEGATIVE Urine Methadone Screen NEGATIVE Ur Barbiturates Screen NEGATIVE Ur Phencyclidine Scrn NEGATIVE Ur Amphetamines Screen NEGATIVE U Methamphetamin-MDMA NEGATIVE U Benzodiazepines Scrn NEGATIVE Urine Cocaine Screen NEGATIVE U Cannabinoids Screen NEGATIVE Ur Drug Screen Comment Ethyl Alcohol POC Glucose 08/06/18 08/06/18 08/05/18 11:40 03:46 21:33 POC Glucose 248 H 113 H 127 H 08/05/18 08/05/18 08/05/18 21:14 17:25 15:20 POC Glucose 66 L 87 68 L 08/05/18 08/05/18 14:06 13:32 POC Glucose 104 58 L Discharge Diet: Low fat/ Low Cholesterol, 1800 Calorie Control Diet Discharge Activity: Return to Normal Activity Call your doctor if your incision/area has: Continuous Slow Oozing Call your doctor if you observe: Fever of 101 or Higher, Shortness of breath Home Medications: Medications to take at Discharge Albuterol Inhaler [Ventolin Hfa] 2 puff INHALATION Q4H PRN PRN 02/03/18 Atorvastatin Calcium [Lipitor] 40 mg PO DAILY 02/03/18 Docusate Sodium [Stool Softener] 100 mg PO DAILY 02/03/18 Duloxetine Hcl [Cymbalta] 60 mg PO DAILY 02/03/18 Insulin Lispro [Humalog KwikPen] 22 unit SQ LUNCH 02/03/18 Insulin Lispro [Humalog KwikPen] 24 unit SQ DINNER 02/03/18 Insulin Lispro [Humalog] 16 unit SQ BREAKFAST 02/03/18 Isosorbide Mononitrate [Imdur] 90 mg PO DAILY 02/03/18 Levothyroxine [Synthroid] 100 mcg PO DAILY 02/03/18 Apixaban [Eliquis] 2.5 mg PO BID 05/17/18 Ascorbic Acid [Vitamin C] 500 mg PO DAILY@0800 05/17/18 Metoprolol Tartrate [Lopressor] 100 mg PO BID 05/17/18 Omeprazole [Prilosec] 20 mg PO DAILY 05/17/18 Pregabalin [Lyrica] 100 mg PO TID 05/17/18 Sennosides [Claudia-Ramila] 8.6 mg PO BID 05/17/18 Aspirin [Aspirin EC] 81 mg PO DAILY 07/22/18 Ferrous Gluconate 324 mg PO DAILY 07/22/18 Fluticasone Propionate 2 sprays NASAL DAILY 07/22/18 Insulin Glargine [Lantus SoloStar Pen] 36 units SC BID 07/22/18 busPIRone [Buspar] 7.5 mg PO BID 07/25/18 Albuterol IH (ProAir) [Proair Hfa] 2 puff INHALATION Q4H PRN PRN 08/05/18 Buspirone HCl 7.5 mg PO BID 08/05/18 Acetaminophen [Tylenol] 1,000 mg PO Q8 PRN tablet 08/06/18 Primary Care Physician: Bhupendra Oliveira MD [Primary Care Provider] - Within 2 Weeks Disposition: Home with Home Health Minutes spent on discharge:: 32 Patient Condition:: Fair Medical Necessity - Tobacco Use Smoking Status: Former smoker Tobacco Use: Cigarettes Meaningful Use Info Meaningful Use Diagnoses (Choose all that apply): None applicable Code Visit OBSV E&M: 55398 Observation care discharge
--- NOTE | 2018-08-06 12:03 | DS.PCM_ITS ---
Discharge Date and Diagnosis - Problem List Patient Problems: Active and Suspected Problems Toxic encephalopathy (Acute) Bradycardia (Acute) Date of Admission: 08/05/18 Date of Discharge: 08/06/18 - Primary Discharge Diagnosis Active and Suspected Problems Bradycardia (Acute) 1. Change in mental status/toxic encephalopathy * resolved * Feel that this is likely related the patient's tramadol that she has been taking including Lyrica, Cymbalta. * No additional narcotics and will hold off on the patient's Lyrica as well as Cymbalta * Advised patient that she will not be receiving any narcotics but patient groggily states that she will get up and leave but then quickly dozes off. * Though patient now denies Tramadol use, despite endorsing she took 2 little pills yesterday and found with bottle at home. 2. Chronic pain * Patient is a high risk for given that she has really admitted to taking someone else's, her sons, tramadol and also with her encephalopathy. She is a high likelihood for overdose * Pain control will be maintained through utilized non-narcotic medications. 3. COPD * No acute process on x-ray * Continue with her home medications * No acute exacerbation at this time 4. Diabetes mellitus type 2 * Patient is not encephalopathic due to hypoglycemia but has had hypoglycemic episodes. * Continue with her home dosing of insulin but given hypoglycemic episode that she has had in the past, discontinue the Metformin 5. Bradycardia * Improved * Patient is on combination of metoprolol and Cartia XT. * Will discontinue the Cartia and monitor 6. Chronic atrial fibrillation * Continue with metoprolol and Eliquis - Secondary Discharge Diagnosis Chronic Problems Paroxysmal A-fib (Chronic) Diabetes mellitus type 2 in obese (Chronic) Coronary arteriosclerosis (Chronic) cath 05/2015 mild-moderate disease medical therapy recommended Hypothyroidism (Chronic) Hyperlipemia (Chronic) GERD (gastroesophageal reflux disease) (Chronic) Hypertension (Chronic) COPD (chronic obstructive pulmonary disease) (Chronic) Chronic respiratory insufficiency (Chronic) On home oxygen at night S/P PTCA (percutaneous transluminal coronary angioplasty) (Chronic) PARESH (obstructive sleep apnea) (Chronic) Hospital Course and Treatment Imaging Results: Clinical Impression(s) from Imaging Studies Brain CT 08/05/18 13:17 IMPRESSION: Chronic involutional changes of the brain. Stable examination. Electronically Signed: Bentley Montejo MD at 15:12 EST Tel [phone], Service support , Chest X-Ray 08/05/18 13:17 IMPRESSION: Findings suggest a mild degree of CHF with a possible scarring in the right lower lobe. Electronically Signed: Bentley Montejo MD at 13:55 EST Tel [phone], Service support , Operations: None Procedures: None Summary of Care Provided: The patient is a 63 year old F presents with confusion. EMS arrived and patient was found to have a bottle of tramadol. Patient did endorse taking 2 pills of tramadol. Patient did receive couple rounds of Narcan with minimal improvement. Patient but she did start coming to but was dozing off very easily. Patient was brought in and monitored. Patient also did have some bradycardia. Patient's Cartee was discontinued. Patient was on Cartia as well as metoprolol. The patient will continue with her metoprolol. Patient advised to avoid n arcotics though now she is staying this that she did not Phenergan and ibuprofen. It were to avoid the Phenergan but the story seems to be evolving at this time. Patient does have history of hypoglycemia which she did not have any episodes here but recommend patient stop her metformin and continue with her insulin. The combination of the oral plus insulin may be leading to have hyperglycemic episodes which she has had in the past. [] Patient Problems: Active and Suspected Problems Toxic encephalopathy (Acute) Bradycardia (Acute) - Physical Exam General: Alert HEENT: Atraumatic, Normocephalic Oral: Moist Mucosa, No Gingival or Mucosal Lesions/ Ulcerations Lungs: Clear to auscultation, Normal air movement, Wheezes - upper respiratory. Cardiovascular: Regular rate, Regular Rhythm, Normal S1, Normal S2, No murmurs Abdomen: Bowel Sounds Present, Soft, Non Tender, Non-Distended, No Hepato- splenomegaly Extremities: No edema, No Calf Tenderness Psych/Mental Status: Normal Affect, Appropriate Vital Signs Temp Pulse Resp BP Pulse Ox 36.6 C 74 18 150/105 H 96 08/06/18 09:00 08/06/18 09:00 08/06/18 09:00 08/06/18 09:00 08/06/18 09:00 Oxygen Flow Rate (L/min) 3 Oxygen Delivery Method Nasal Cannula Weight: 95.8 kg Body Mass Index (BMI) 38.6 Finger Stick Blood Glucose 68 Intake and Output for Last 24 Hours 08/04/18 08/05/18 08/06/18 23:59 23:59 23:59 Intake Total 440 / 440 120 / 120 Output Total 950 / 950 525 / 525 Balance -510 / -510 -405 / -405 Laboratory Tests Past 24 Hrs 08/05/18 08/05/18 08/05/18 13:05 13:05 13:05 WBC 10.3 RBC 4.20 Hgb 12.1 Hct 39.2 MCV 93.3 MCH 28.8 MCHC 30.9 L RDW 16.1 H RDW Differential 54.6 H Plt Count 214 MPV 10.2 Immature Gran % (Auto) 0.200 Neut % (Auto) 75.8 H Lymph % (Auto) 9.1 L [place] % (Auto) 10.4 H Eos % (Auto) 4.3 Baso % (Auto) 0.2 Absolute Neuts (auto) 7.8 H Absolute Lymphs (auto) 0.94 Total Counted Not Reportable PT 14.6 INR 1.1 APTT 32.4 Specimen Type Sample Site pH Bicarbonate Actual POC Total CO2 Base Excess O2 Saturation ABG pCO2 ABG pO2 [place] Test O2 Delivery Device Liter Flow Blood Gas Notified Whom Blood Gas Notified Time Sodium 142 Potassium 3.8 Chloride 106 Carbon Dioxide 31.0 Anion Gap 5 BUN 12 Creatinine 0.66 Estim Creat Clear Calc 69.00 Est GFR (MDRD) Af Amer 116 Est GFR (MDRD) Non-Af 96 BUN/Creatinine Ratio 18.2 Glucose 78 Lactic Acid Calcium 8.1 L Total Bilirubin 0.70 AST 8 L ALT 15 Alkaline Phosphatase 47 Troponin I < 0.015 B-Natriuretic Peptide Total Protein 6.6 Albumin 3.0 L Globulin 3.6 Albumin/Globulin Ratio 0.8 L Urine Color Urine Clarity Urine pH Ur Specific [place] Urine Protein Urine Glucose (UA) Urine Ketones Urine Occult Blood Urine Nitrite Urine Bilirubin Urine Urobilinogen Ur Leukocyte Esterase Urine RBC Urine WBC Ur Squamous Epith Cells Urine Bacteria Urine Mucus Urine Opiates Screen Urine Methadone Screen Ur Barbiturates Screen Ur Phencyclidine Scrn Ur Amphetamines Screen U Methamphetamin-MDMA U Benzodiazepines Scrn Urine Cocaine Screen U Cannabinoids Screen Ur Drug Screen Comment Ethyl Alcohol 08/05/18 08/05/18 08/05/18 13:05 13:05 13:35 WBC RBC Hgb Hct MCV MCH MCHC RDW RDW Differential Plt Count MPV Immature Gran % (Auto) Neut % (Auto) Lymph % (Auto) Ste[place] % (Auto) Eos % (Auto) Baso % (Auto) Absolute Neuts (auto) Absolute Lymphs (auto) Total Counted PT INR APTT Specimen Type Sample Site pH Bicarbonate Actual POC Total CO2 Base Excess O2 Saturation ABG pCO2 ABG pO2 [place] Test O2 Delivery Device Liter Flow Blood Gas Notified Whom Blood Gas Notified Time Sodium Potassium Chloride Carbon Dioxide Anion Gap BUN Creatinine Estim Creat Clear Calc Est GFR (MDRD) Af Amer Est GFR (MDRD) Non-Af BUN/Creatinine Ratio Glucose Lactic Acid 1.7 Calcium Total Bilirubin AST ALT Alkaline Phosphatase Troponin I B-Natriuretic Peptide 158.4 H Total Protein Albumin Globulin Albumin/Globulin Ratio Urine Color Urine Clarity Urine pH Ur Specific [place] Urine Protein Urine Glucose (UA) Urine Ketones Urine Occult Blood Urine Nitrite Urine Bilirubin Urine Urobilinogen Ur Leukocyte Esterase Urine RBC Urine WBC Ur Squamous Epith Cells Urine Bacteria Urine Mucus Urine Opiates Screen Urine Methadone Screen Ur Barbiturates Screen Ur Phencyclidine Scrn Ur Amphetamines Screen U Methamphetamin-MDMA U Benzodiazepines Scrn Urine Cocaine Screen U Cannabinoids Screen Ur Drug Screen Comment Ethyl Alcohol < 3.0 08/05/18 08/05/18 08/05/18 14:17 14:17 14:33 WBC RBC Hgb Hct MCV MCH MCHC RDW RDW Differential Plt Count MPV Immature Gran % (Auto) Neut % (Auto) Lymph % (Auto) [place] % (Auto) Eos % (Auto) Baso % (Auto) Absolute Neuts (auto) Absolute Lymphs (auto) Total Counted PT INR APTT Specimen Type ART Sample Site L Radial pH 7.32 L Bicarbonate Actual 27.2 H POC Total CO2 29 Base Excess 1 O2 Saturation 97 ABG pCO2 52.9 H ABG pO2 103 H [place] Test NA O2 Delivery Device Nasal Can Liter Flow 3.0 Blood Gas Notified Whom ED Blood Gas Notified Time 1426 Sodium Potassium Chloride Carbon Dioxide Anion Gap BUN Creatinine Estim Creat Clear Calc Est GFR (MDRD) Af Amer Est GFR (MDRD) Non-Af BUN/Creatinine Ratio Glucose Lactic Acid Calcium Total Bilirubin AST ALT Alkaline Phosphatase Troponin I B-Natriuretic Peptide Total Protein Albumin Globulin Albumin/Globulin Ratio Urine Color Yellow Urine Clarity Clear Urine pH 6.5 Ur Specific [place] 1.005 Urine Protein Negative Urine Glucose (UA) Normal Urine Ketones Negative Urine Occult Blood Negative Urine Nitrite Negative Urine Bilirubin Negative Urine Urobilinogen Normal Ur Leukocyte Esterase Negative Urine RBC 0 SEEN Urine WBC 0 SEEN Ur Squamous Epith Cells 0 SEEN Urine Bacteria 0 SEEN Urine Mucus 0 SEEN Urine Opiates Screen NEGATIVE Urine Methadone Screen NEGATIVE Ur Barbiturates Screen NEGATIVE Ur Phencyclidine Scrn NEGATIVE Ur Amphetamines Screen NEGATIVE U Methamphetamin-MDMA NEGATIVE U Benzodiazepines Scrn NEGATIVE Urine Cocaine Screen NEGATIVE U Cannabinoids Screen NEGATIVE Ur Drug Screen Comment Ethyl Alcohol POC Glucose 08/06/18 08/06/18 08/05/18 11:40 03:46 21:33 POC Glucose 248 H 113 H 127 H 08/05/18 08/05/18 08/05/18 21:14 17:25 15:20 POC Glucose 66 L 87 68 L 08/05/18 08/05/18 14:06 13:32 POC Glucose 104 58 L Discharge Diet: Low fat/ Low Cholesterol, 1800 Calorie Control Diet Discharge Activity: Return to Normal Activity Call your doctor if your incision/area has: Continuous Slow Oozing Call your doctor if you observe: Fever of 101 or Higher, Shortness of breath Home Medications: Medications to take at Discharge Albuterol Inhaler [Ventolin Hfa] 2 puff INHALATION Q4H PRN PRN 02/03/18 Atorvastatin Calcium [Lipitor] 40 mg PO DAILY 02/03/18 Docusate Sodium [Stool Softener] 100 mg PO DAILY 02/03/18 Duloxetine Hcl [Cymbalta] 60 mg PO DAILY 02/03/18 Insulin Lispro [Humalog KwikPen] 22 unit SQ LUNCH 02/03/18 Insulin Lispro [Humalog KwikPen] 24 unit SQ DINNER 02/03/18 Insulin Lispro [Humalog] 16 unit SQ BREAKFAST 02/03/18 Isosorbide Mononitrate [Imdur] 90 mg PO DAILY 02/03/18 Levothyroxine [Synthroid] 100 mcg PO DAILY 02/03/18 Apixaban [Eliquis] 2.5 mg PO BID 05/17/18 Ascorbic Acid [Vitamin C] 500 mg PO DAILY@0800 05/17/18 Metoprolol Tartrate [Lopressor] 100 mg PO BID 05/17/18 Omeprazole [Prilosec] 20 mg PO DAILY 05/17/18 Pregabalin [Lyrica] 100 mg PO TID 05/17/18 Sennosides [Claudia-Ramila] 8.6 mg PO BID 05/17/18 Aspirin [Aspirin EC] 81 mg PO DAILY 07/22/18 Ferrous Gluconate 324 mg PO DAILY 07/22/18 Fluticasone Propionate 2 sprays NASAL DAILY 07/22/18 Insulin Glargine [Lantus SoloStar Pen] 36 units SC BID 07/22/18 busPIRone [Buspar] 7.5 mg PO BID 07/25/18 Albuterol IH (ProAir) [Proair Hfa] 2 puff INHALATION Q4H PRN PRN 08/05/18 Buspirone HCl 7.5 mg PO BID 08/05/18 Acetaminophen [Tylenol] 1,000 mg PO Q8 PRN tablet 08/06/18 Primary Care Physician: Bhupendra Oliveira MD [Primary Care Provider] - Within 2 Weeks Disposition: Home with Home Health Minutes spent on discharge:: 32 Patient Condition:: Fair Medical Necessity - Tobacco Use Smoking Status: Former smoker Tobacco Use: Cigarettes Meaningful Use Info Meaningful Use Diagnoses (Choose all that apply): None applicable Code Visit OBSV E&M: 37469 Observation care discharge
--- NOTE | 2018-08-06 12:41 | CASEMGMT ---
BLAKE called [facility] coverage line and let them know patient is being discharged. BLAKE also called Uma with [facility] and let her know that patient is being discharged today. Plan: d/c home with resumption of [employer] services as well as [facility] group home and PT. Charley ROLAND MSW
--- NOTE | 2018-08-08 16:17 | ED.RN ---
TRAMADOL THAT CAME WITH PATIENT WAS GIVEN TO [facility].
--- NOTE | 2018-09-30 09:26 | CCN.REFER ---
Two TC placed to pt, LVM; no return calls; CCN will hold referral if pt returns call [place] GONZALEZ
== END 2018-08-06 14:50 | disposition home health service (06) ==
LOC: ED 13:34 → PCU 15:50
PROVIDERS: Emergency Provider Emergency Medicine; Family Provider Family Medicine; PCP Family Medicine
DX: G92 Toxic encephalopathy (principal); R00.1 Bradycardia, unspecified; G89.29 Other chronic pain; E11.649 Type 2 diabetes mellitus with hypoglycemia without coma; I48.2 Chronic atrial fibrillation; I48.0 Paroxysmal atrial fibrillation; I25.10 Atherosclerotic heart disease of native coronary artery without angina pectoris; E03.9 Hypothyroidism, unspecified; K21.9 Gastro-esophageal reflux disease without esophagitis; E78.5 Hyperlipidemia, unspecified; I10 Essential (primary) hypertension; G47.33 Obstructive sleep apnea (adult) (pediatric); Z79.899 Other long term (current) drug therapy; Z79.4 Long term (current) use of insulin; Z79.82 Long term (current) use of aspirin; Z99.81 Dependence on supplemental oxygen; J44.9 Chronic obstructive pulmonary disease, unspecified; Z79.01 Long term (current) use of anticoagulants; Z87.891 Personal history of nicotine dependence; J96.21 Acute and chronic respiratory failure with hypoxia; J96.22 Acute and chronic respiratory failure with hypercapnia; R06.02 Shortness of breath
CPT/HCPCS: 36415; 36600; 51702; 70450; 71045; 80053; 80307; 80320; 81001; 82803; 82962; 83605; 83880; 84484; 85025; 85610; 85730; 87040; 87086; 93005; 94640; 96374; 96376; 97162; 97165; 99218; 99285; J7030; J7040; A4216; G0378; G0480

== ENCOUNTER 2018-08-11 09:13 | Outpatient (RCR) | payer MEDICARE, SELFPAY ==
[2018-08-05 16:13] VITALS: BMI 38.6
[2018-08-12 09:37] LABS: Color, Urine Yellow (Yellow); Glucose, Dipstick Normal (Normal); Ketone-Dipstick Negative (Negative); Leukocyte Esterase-Dipstick 500 /ul (Negative); Nitrite-Dipstick Positive (Negative); Occult Blood-Urine 150 /ul (Negative); Protein-Dipstick 100 mg/dl (Negative); Urine Bilirubin Dipstick Negative (Negative); Urine Clarity Sl. Cloudy (Clear); Urine Urobilinogen Normal (Normal)
== END 2018-08-21 23:59 ==
LOC: HHLAB 09:13
PROVIDERS: Family Provider Family Medicine; PCP Family Medicine; Referring Provider Family Medicine; Visit Provider Family Medicine
DX: E11.649 Type 2 diabetes mellitus with hypoglycemia without coma (principal); J44.1 Chronic obstructive pulmonary disease with (acute) exacerbation; J96.22 Acute and chronic respiratory failure with hypercapnia
CPT/HCPCS: 81002; 87077; 87086; 87088; 87186

== ENCOUNTER 2018-08-13 18:37 | Emergency (ER) | payer MEDICARE, SELFPAY ==
[2018-08-05 16:13] VITALS: BMI 38.6
[2018-08-13 18:41] VITALS: BP 127/85; PULSE 88; RESP 18; TEMP 36.8; O2SAT 92; BMI 39.0
[2018-08-13] MEDS: predniSONE 20 MG Tablet 60 MG PO (18:58)
--- NOTE | 2018-08-13 19:03 | ED.VISSUMM ---
- ER Visit Summary Date of Service: 08/13/18 Chief Complaint: Shortness of breath and productive cough History of Present Illness: The patient is a 63 F who has history of COPD dependent on oxygen at 2-3 L by nasal cannula who presents with a productive cough of brown colored sputum. She states she had increased shortness of breath over the past 2 weeks. The brown sputum was noted to 3 days ago. She complains of subjective fever and sweats this morning. She denies any ocular, visual or auditory symptoms. She does complain of shortness of breath at rest. She denies chest pain of any type. She denies abdominal pain, nausea, vomiting or diarrhea. She is presently on nitrofurantoin for urinary tract infection. She denies leg pain, swelling or discoloration. She denies history of pulmonary embolus or DVT. Patient denies orthopnea or PND. She denies headache, anesthesia, paresthesia or motor weakness. She does report bruising easily. She states her last dose of prednisone was 3 weeks ago. Physical Examination: Vital signs noted and blood pressure is slightly elevated 127/85. She is not hypoxic. BMI is 39.1. HEENT exam is unremarkable. Her voice is slightly hoarse. There is diminished breath sounds bilaterally with increased expiratory phase and high-pitched wheezing noted bilaterally. Heart is regular without murmur, gallop or rub. Abdomen is soft nontender. Lower extremity exam reveals no swelling, discoloration, asymmetry, leg vein distention, palpable cords or tenderness on the distribution of deep venous system. Neuro exam is nonfocal. Test Results: Two-view chest x-ray reveals chronic changes. What appeared to be an infiltrate right lower lobe on August 05 has resolved. Cardiac silhouette is normal. Mediastinum is normal. Chronic changes are noted. Osseous structures are unchanged. White count is normal with no bandemia. Electric panels marked for glucose of 194. Emergency Department Course and Treatment: Patient received 60 mg of prednisone since she was recently on steroids. Chest x-ray was obtained to evaluate for pneumonia. Blood work was obtained to assess white count, H&H and kidney function. She was treated with DuoNeb followed by 2 albuterol treatments. Treatment Plan: Since patient is no longer wheezing will treat with doxycycline. Since pharmacies are closed she was here first dose in the emergency department prior to discharge and placed on a burst of prednisone. Disposition: Discharged home in stable and improved condition Impression: 1. Acute exacerbation of COPD 2. Acute exacerbation of chronic bronchitis 3. Bronchospasm secondary to above This note was generated with [email or web address] dictation software. It may contain incorrect words, spelling, and punctuation that were not noted in review of the chart prior to signing ED Disposition - Plan for ED Patient: Disposition: Home or Assisted Living Chief Complaint: Shortness of Breath Instructions: ED COPD Flare Prescriptions: Prednisone [Deltasone] 40 mg PO DAILY #10 tab Doxycycline Monohydrate 100 mg PO BID #14 cap Referrals: Bhupendra Oliveira MD [Primary Care Provider] - 3-5 Days if not improving
[2018-08-13 19:06] VITALS: PULSE 114; RESP 20
[2018-08-13] MEDS: Albuterol 2.5 MG/3 ML VIAL.NEB. INHALATION ×3 (19:06→19:35)
[2018-08-13 19:15] LABS: Absolute Neutrophil Count 5.3 X10^3/uL (2.0-7.7); Basophil# 0.02 X10^3/uL; Basophil% 0.3 % (0-1); Eosinophil# 0.32 X10^3/uL; Eosinophils% 4.4 % (0-5); Hematocrit 41.8 % (37-47); Hemoglobin 12.8 g/dl (12.0-15.0); Lymphocyte % 10.9 % (19-41); Mean Corp Hgb Conc 30.6 g/gl (32-36); Mean Corpuscular Hgb 28.5 pg (27.0-32.0); Mean Corpuscular Volume 93.1 fL (81-99); Mean Platelet Vol. 10.5 fl (6.2-12.0); Monocyte# 0.86 X10^3/uL; Monocyte% 11.7 % (0-10); Neutrophil # 5.32 X10^3/uL (2.7-7.7); Neutrophil % 72.3 % (47-70); POSITIVE COUNT NO; POSITIVE DIFFERENTIAL NO; POSITIVE MORPHOLOGY NO; Platelet Count 233 K/mm3 (150-450); RBC Distribution Width CV 16.3 % (11.6-14.6); RBC Distribution Width SD 54.7 fl (35.1-43.9); Red Blood Count 4.49 M/mm3 (4.2-5.4); White Blood Count 7.4 K/mm3 (4.4-11.0)
[2018-08-13] MEDS: Ipratropium/Albuterol Sulfate 3 ML AMPUL.NEB INHALATION (19:18)
[2018-08-13 19:24] LABS: Anion Gap 2 (5-15); BUN 12 mg/dL (7-18); BUN/Creat Ratio 13.3 RATIO (10-20); Calcium,Total 8.6 mg/dL (8.5-10.1); Chloride 108 mmol/L (98-107); EST Glomerular Filtration Rate 67 mL/min (>60); Est Glom Filt Rate - Afr Amer 81 mL/min (>60); Glucose 194 mg/dL (74-106); Potassium 3.7 mmol/L (3.5-5.1); Sodium Level 141 mmol/L (136-145)
--- NOTE | 2018-08-13 20:00 | RAD_ITS ---
STUDY: X-RAY CHEST REASON FOR EXAM: Female, 63 years old. Shortness of breath and cough. TECHNIQUE: PA and lateral views of the chest. COMPARISON: 05 August 2018 FINDINGS: Prominent interstitial markings are seen bilaterally. COPD related changes are present. There is no demonstrated pleural abnormality. There is moderate cardiac enlargement. Normal mediastinum and tracie. There is prominence of the pulmonary hilar arteries and peripheral pulmonary arteries, consistent with congestive heart failure (CHF). There is atherosclerotic calcification of the aortic arch with tortuosity. There are diffuse degenerative changes of the visualized thoracic spine. Normal visualized ribs, clavicles, and shoulders. There is no demonstrated abnormality of the visualized soft tissue structures of the upper abdomen. RAD/Chest PA and Lateral IMPRESSION: Findings consistent with prominent pulmonary vascularity with underlying COPD related changes. Cardiogenic edema is not totally excluded, clinically correlate for CHF exacerbation. Electronically Signed: Leonides Wilburn DO at 20:23 EST , Service support ,
[2018-08-13 20:45] VITALS: BP 163/92; PULSE 112; RESP 19; O2SAT 97
[2018-08-13] MEDS: Acetaminophen 325 MG Tablet 650 MG PO (20:57)
[2018-08-13] MEDS: Doxycycline 100 MG CAPSULE PO (22:12)
[2018-08-13 22:13] VITALS: BP 154/83; PULSE 101; RESP 20; O2SAT 97
== END 2018-08-13 22:16 | disposition home or self-care (01) ==
PROVIDERS: Emergency Provider Emergency Medicine; Family Provider Family Medicine; PCP Family Medicine
DX: J44.0 Chronic obstructive pulmonary disease with (acute) lower respiratory infection (principal); J20.9 Acute bronchitis, unspecified; J44.1 Chronic obstructive pulmonary disease with (acute) exacerbation; N39.0 Urinary tract infection, site not specified; I48.0 Paroxysmal atrial fibrillation; I25.10 Atherosclerotic heart disease of native coronary artery without angina pectoris; E11.9 Type 2 diabetes mellitus without complications; K21.9 Gastro-esophageal reflux disease without esophagitis; Z99.81 Dependence on supplemental oxygen; Z87.891 Personal history of nicotine dependence; I10 Essential (primary) hypertension; G47.33 Obstructive sleep apnea (adult) (pediatric); E03.9 Hypothyroidism, unspecified; Z79.01 Long term (current) use of anticoagulants; Z79.82 Long term (current) use of aspirin; Z79.4 Long term (current) use of insulin; Z79.899 Other long term (current) drug therapy
CPT/HCPCS: 71046; 80048; 85025; 94640; 99285; A4216

== ENCOUNTER 2018-08-31 10:29 | Outpatient (RCR) | payer MEDICARE, SELFPAY ==
[2018-08-22 02:10] VITALS: BMI 38.6
== END 2018-08-31 11:29 | disposition home or self-care (01) ==
LOC: HHLAB 10:29
PROVIDERS: Family Provider Family Medicine; PCP Family Medicine; Referring Provider Family Medicine; Visit Provider Family Medicine
DX: E11.649 Type 2 diabetes mellitus with hypoglycemia without coma (principal); J44.1 Chronic obstructive pulmonary disease with (acute) exacerbation; J96.22 Acute and chronic respiratory failure with hypercapnia

== ENCOUNTER → 2018-08-31 19:52 | Outpatient (CLI) | payer MEDICARE, SELFPAY ==
[2018-08-31 19:52] VITALS: BMI 39.0
[2018-08-31 19:57] LABS: Bacteria 0 SEEN /hpf (None Seen); Mucous, Urine 0 SEEN /hpf (<or=2+); Red Blood Cells-Urine 0 SEEN /hpf (0-5)
[2018-08-31 20:20] LABS: Color, Urine Yellow (Yellow); Glucose, Dipstick Normal (Normal); Ketone-Dipstick Negative (Negative); Leukocyte Esterase-Dipstick 500 /ul (Negative); Nitrite-Dipstick Positive (Negative); Occult Blood-Urine 25 /ul (Negative); Protein-Dipstick 30 mg/dl (Negative); Urine Bilirubin Dipstick Negative (Negative); Urine Clarity Sl. Cloudy (Clear); Urine Urobilinogen Normal (Normal)
[2018-08-31 20:27] LABS: Squamous Epithelial Cells - UA 5-10 SEEN /hpf (5-10); White Blood Cells >100 SEEN /hpf (0-5)
--- OUTSIDE RECORDS SUMMARY | 2018-10-18 03:18 | XMS RPT_ITS ---
:1955 Author Organization OHIP Support Name Relationship Address Phone ADCOX, EMILIA Unavailable Unavailable + [place] [address] D Unavailable Unavailable Unavailable EFRA, MILY Unavailable Unavailable + [place] [address] ADCOX, EMILIA Unavailable Unavailable + [place] [address] D Unavailable Unavailable Unavailable EFRA, MILY Unavailable Unavailable + [place] [address] ADCOX, EMILIA Unavailable Unavailable + [place] [address] D Unavailable Unavailable Unavailable EFRA, MILY Unavailable Unavailable + [place] [address] ADCOX, EMILIA Unavailable Unavailable + [place] [address] D Unavailable Unavailable Unavailable EFRA, MILY Unavailable Unavailable + [place] [address] ADCOX, EMILIA Unavailable Unavailable + [place] [address] D Unavailable Unavailable Unavailable EFRA, MILY Unavailable Unavailable + [place] [address] ADCOX, EMILIA Unavailable Unavailable + [place] [address] D Unavailable Unavailable Unavailable EFRA, MILY Unavailable Unavailable + [place] [address] ADCOX, EMILIA Unavailable Unavailable + [place] [address] D Unavailable Unavailable Unavailable EFRA, MILY Unavailable Unavailable + [place] [address] ADCOX, EMILIA Unavailable Unavailable + [place] [address] D Unavailable Unavailable Unavailable EFRA, MILY Unavailable Unavailable + [place] [address] ADCOX, EMILIA Unavailable Unavailable + [place] [address] D Unavailable Unavailable Unavailable EFRA, MILY Unavailable Unavailable + [place] [address] ADCOX, EMILIA Unavailable Unavailable + [place] [address] D Unavailable Unavailable Unavailable EFRA, MILY Unavailable Unavailable + [place] [address] ADCOX, EMILIA Unavailable Unavailable + [place] [address] D Unavailable Unavailable Unavailable EFRA, MILY Unavailable Unavailable + [place] [address] ADCOX, EMILIA Unavailable Unavailable + [place] [address] D Unavailable Unavailable Unavailable EFRA, MILY Unavailable Unavailable + [place] [address] ADCOX, EMILIA Unavailable Unavailable + [place] [address] D Unavailable Unavailable Unavailable EFRA, MILY Unavailable Unavailable + [place] [address] ADCOX, EMILIA Unavailable Unavailable + [place] [address] D Unavailable Unavailable Unavailable EFRA, MLIY Unavailable Unavailable + [place] [address] ADCOX, EMILIA Unavailable Unavailable + [place] [address] D Unavailable Unavailable Unavailable EFRA, MILY Unavailable Unavailable + [place] [address] ADCOX, EMILIA Unavailable Unavailable + [place] [address] D Unavailable Unavailable Unavailable EFRA, MILY Unavailable Unavailable + [place] [address] ADCOX, EMILIA Unavailable Unavailable + [place] [address] D Unavailable Unavailable Unavailable EFRA, MILY Unavailable Unavailable + [place] [address] ADCOX, EMILIA Unavailable Unavailable + [place] [address] D Unavailable Unavailable Unavailable EFRA, MILY Unavailable Unavailable + [place] [address] ADCOX, EMILIA Unavailable Unavailable + [place] [address] D Unavailable Unavailable Unavailable EFRA, MILY Unavailable Unavailable + [place] [address] ADCOX, EMILIA Unavailable Unavailable + [place] [address] D Unavailable Unavailable Unavailable EFRA, MILY Unavailable Unavailable + [place] [address] ADCOX, EMILIA Unavailable Unavailable + [place] [address] D Unavailable Unavailable Unavailable EFRA, MILY Unavailable Unavailable + [place] [address] ADCOX, EMILIA Unavailable Unavailable + [place] [address] D Unavailable Unavailable Unavailable EFRA, MILY Unavailable Unavailable + [place] [address] ADCOX, EMILIA Unavailable Unavailable + [place] [address] D Unavailable Unavailable Unavailable EFRA, MILY Unavailable Unavailable + [place] [address] ADCOX, EMILIA Unavailable Unavailable + [place] [address] D Unavailable Unavailable Unavailable EFRA, MILY Unavailable Unavailable + [place] [address] ADCOX, EMILIA Unavailable Unavailable + [place] [address] D Unavailable Unavailable Unavailable EFRA, MILY Unavailable Unavailable + [place] [address] ADCOX, EMILIA Unavailable Unavailable + [place] [address] D Unavailable Unavailable Unavailable EFRA, MILY Unavailable Unavailable + [place] [address] ADCOX, EMILIA Unavailable Unavailable + [place] [address] D Unavailable Unavailable Unavailable EFRA, MILY Unavailable Unavailable + [place] [address] ADCOX, EMILIA Unavailable Unavailable + [place] [address] D Unavailable Unavailable Unavailable EFRA, MILY Unavailable Unavailable + [place] [address] ADCOX, EMILIA Unavailable Unavailable + [place] [address] D Unavailable Unavailable Unavailable EFRA, MILY Unavailable Unavailable + [place] [address] ADCOX, EMILIA Unavailable Unavailable + [place] [address] D Unavailable Unavailable Unavailable EFRA, MILY Unavailable Unavailable + [place] [address] ADCOX, EMILIA Unavailable Unavailable + [place] [address] D Unavailable Unavailable Unavailable EFRA, MILY Unavailable Unavailable + [place] [address] ADCOX, EMILIA Unavailable Unavailable + [place] [address] D Unavailable Unavailable Unavailable EFRA, MILY Unavailable Unavailable + [place] [address] ADCOX, EMILIA Unavailable Unavailable + [place] [address] D Unavailable Unavailable Unavailable EFRA, MILY Unavailable Unavailable + [place] [address] ADCOX, EMILIA Unavailable Unavailable + [place] [address] D Unavailable Unavailable Unavailable EFRA, MILY Unavailable Unavailable + [place] [address] ADCOX, EMILIA Unavailable Unavailable + [place] [address] D Unavailable Unavailable Unavailable EFRA, MILY Unavailable Unavailable + [place] [address] ADCOX, EMILIA Unavailable Unavailable + [place] [address] D Unavailable Unavailable Unavailable EFRA, MILY Unavailable Unavailable + [place] [address] ADCOX, EMILIA Unavailable Unavailable + [place] [address] D Unavailable Unavailable Unavailable EFRA, MILY Unavailable Unavailable + [place] [address] ADCOX, EMILIA Unavailable Unavailable + [place] [address] D Unavailable Unavailable Unavailable EFRA, MILY Unavailable Unavailable + [place] [address] ADCOX, EMILIA Unavailable Unavailable + [place] [address] D Unavailable Unavailable Unavailable EFRA, MILY Unavailable Unavailable + [place] [address] ADCOX, EMILIA Unavailable Unavailable + [place] [address] D Unavailable Unavailable Unavailable EFRA, MILY Unavailable Unavailable + [place] [address] ADCOX, EMILIA Unavailable Unavailable + [place] [address] D Unavailable Unavailable Unavailable EFRA, MILY Unavailable Unavailable + [place] [address] ADCOX, EMILIA Unavailable Unavailable + [place] [address] D Unavailable Unavailable Unavailable EFRA, MILY Unavailable Unavailable + [place] [address] ADCOX, EMILIA Unavailable Unavailable + [place] [address] D Unavailable Unavailable Unavailable EFRA, MILY Unavailable Unavailable + [place] [address] ADCOX, EMILIA Unavailable Unavailable + [place] [address] D Unavailable Unavailable Unavailable EFRA, MILY Unavailable Unavailable + [place] [address] ADCOX, EMILIA Unavailable Unavailable + [place] [address] D Unavailable Unavailable Unavailable EFRA, MILY Unavailable Unavailable + [place] [address] ADCOX, EMILIA Unavailable Unavailable + [place] [address] D Unavailable Unavailable Unavailable EFRA, MILY Unavailable Unavailable + [place] [address] ADCOX, EMILIA Unavailable Unavailable + [place] [address] D Unavailable Unavailable Unavailable EFRA, MILY Unavailable Unavailable + [place] [address] ADCOX, EMILIA Unavailable Unavailable + [place] [address] D Unavailable Unavailable Unavailable EFRA, MILY Unavailable Unavailable + [place] [address] ADCOX, EMILIA Unavailable Unavailable + [place] [address] D Unavailable Unavailable Unavailable EFRA, MILY Unavailable Unavailable + [place] [address] ADCOX, EMILIA Unavailable Unavailable + [place] [address] D Unavailable Unavailable Unavailable EFRA, MILY Unavailable Unavailable + [place] [address] ADCOX, EMILIA Unavailable Unavailable + [place] [address] D Unavailable Unavailable Unavailable EFRA, MILY Unavailable Unavailable + [place] [address] ADCOX, EMILIA Unavailable Unavailable + [place] [address] D Unavailable Unavailable Unavailable EFRA, MILY Unavailable Unavailable + [place] [address] ADCOX, EMILIA Unavailable Unavailable + [place] [address] D Unavailable Unavailable Unavailable EFRA, MILY Unavailable Unavailable + [place] [address] ADCOX, EMILIA Unavailable Unavailable + [place] [address] D Unavailable Unavailable Unavailable EFRA, MILY Unavailable Unavailable + [place] [address] ADCOX, EMILIA Unavailable . + [place] [address] D Unavailable Unavailable Unavailable EFRA, MILY Unavailable . + [place] [address] ADCOX, EMILIA Unavailable . + [place] [address] D Unavailable Unavailable Unavailable EFRA, MILY Unavailable . + [place] [id number] ADCOX, EMILIA Unavailable . + [place] [address] D Unavailable Unavailable Unavailable EFRA, MILY Unavailable . + [place] [address] ADCOX, EMILIA Unavailable . + [place] [id number] D Unavailable Unavailable Unavailable EFRA, MILY Unavailable . + [place] [address] Care Team Providers Name Role Phone Bhupendra Oliveira Attending Unavailable Brian, Bhupendra Primary Care Unavailable Bhupendra Oliveira Attending Unavailable Bhupendra Oliveira Referring Unavailable Brian, Bhupendra Primary Care Unavailable Kyle, Joseph Admitting Unavailable Kyle, Joseph Attending Unavailable Brian, Bhupendra Primary Care Unavailable Kyle, Joseph Consulting Unavailable Brian, Bhupendra Primary Care Unavailable Roger Laguna Attending Unavailable Kyle, Joseph Admitting Unavailable Bursley, Bhupendra Primary Care Unavailable Adriano Livingston Consulting Unavailable Paintsil, Onekama Attending Unavailable Paintsil, Onekama Consulting Unavailable Olivia, Donn Admitting Unavailable Kyle, Joseph Attending Unavailable Brian, Bhupendra Primary Care Unavailable Kyle, Joseph Consulting Unavailable Olivia, Donn Admitting Unavailable KitderikeYvon Attending Unavailable Gildaley, [facility] Unavailable Tarik, Syed Consulting Unavailable Kittoe, Yvon Consulting Unavailable Olivia, Donn Admitting Unavailable Kitderike, Yvon Attending Unavailable Bursley, [facility] Unavailable Tarik, Syed Consulting Unavailable Kittoe, Yvon Consulting Unavailable [facility], Bhupendra Attending Unavailable [facility], [facility] Referring Unavailable [facility], [facility] Unavailable Paintsil, Onekama Admitting Unavailable Kitderike, Yvon Attending Unavailable [facility], [facility] Unavailable Kittoe, Yvon Consulting Unavailable Bursley, [facility] Unavailable Paintsil, Onekama Admitting Unavailable Kitbyron, Yvon Attending Unavailable Olivia, Donn Admitting Unavailable [facility], [facility] Unavailable Olivia, Donn Consulting Unavailable Zuhair Cohn Attending Unavailable [facility], [facility] Unavailable Olivia, Donn Admitting Unavailable Tarik, Syed Consulting Unavailable Shruthi Christie Attending Unavailable [facility] Admitting Unavailable Adriano Livingston Attending Unavailable [facility], [facility] Unavailable MikiAdriano olsen Consulting Unavailable Paintsil, Onekama Consulting Unavailable [facility] Admitting Unavailable Tete Toledo CLIENT TECHNICAL SPECIALIST-C Attending Unavailable [facility] Primary [facility] Unavailable MikiAdriano Consulting Unavailable Paintsil, Onekama Consulting Unavailable [facility] Admitting Unavailable Paintsil, Onekama Attending Unavailable [facility], [facility] Unavailable MikiAdriano Consulting Unavailable Paintsil, Onekama Consulting Unavailable [facility] Admitting Unavailable MikiAdriano olsen Attending [facility] Unavailable MikiAdriano Consulting Unavailable Paintsil, Onekama Consulting Unavailable [facility] Admitting Unavailable Tete Toledo CLIENT TECHNICAL SPECIALIST-C Attending Unavailable [facility], [facility] Unavailable MikiAdriano Consulting Unavailable Paintsil, Onekama Consulting Unavailable [facility] Admitting Unavailable MikiAdriano Attending Unavailable [facility], [facility] Unavailable Miki, Adriano Consulting Unavailable Paintsil, Onekama Consulting Unavailable [facility] Admitting Unavailable Tete Toledo CLIENT TECHNICAL SPECIALIST-C Attending Unavailable [facility], [facility] Unavailable MikiAdriano Consulting Unavailable Paintsil, Onekama Consulting Unavailable Kyle, Joseph Admitting Unavailable [facility], Joseph Attending Unavailable Bursley, Bhupendra Primary Care Unavailable MikiAdriano Consulting Unavailable [facility], Joseph Consulting Unavailable Bursley, Bhupendra Primary Care Unavailable [facility], Joseph Admitting Unavailable Miki Adriano Consulting Unavailable Paintsil, Onekama Attending Unavailable Bao Marvin Attending Unavailable Bart Blas Attending Unavailable Donal Albright Referring Unavailable Imamura, Yoichi Admitting Unavailable Bursley, Bhupendra Primary Care Unavailable Imamura, Yoichi Consulting Unavailable Ashelfah, Ghasem Attending Unavailable Imamura, Yoichi Admitting Unavailable Bursley, Bhupendra Primary Care Unavailable Imamura, Yoichi Consulting Unavailable Ashelfah, Ghasem Attending Unavailable Imamura, Yoichi Admitting Unavailable Bursley, Bhupendra Primary Care Unavailable Imamura, Yoichi Consulting Unavailable Ashelfah, Ghasem Attending Unavailable Bursley, Bhupendra Primary Care Unavailable Imamura, Yoichi Admitting Unavailable Imamura, Yoichi Attending Unavailable Donal [place] Attending Unavailable Donal [place] Referring Unavailable Bursley, Bhupendra Primary Care Unavailable Luz Ace Consulting Unavailable Donal [place] Attending Unavailable Donal [place] Referring Unavailable Bursley, Bhupendra Primary Care Unavailable Bursley, Bhupendra Attending Unavailable Bursley, Bhupendra Referring Unavailable Bursley, Bhupendra Primary Care Unavailable John Ford Attending Unavailable John Ford Referring Unavailable Bursley, Bhupendra Primary Care Unavailable [facility], Joseph Admitting Unavailable Paintsil, Onekama Attending Unavailable Bursley, Bhupendra Primary Care Unavailable Paintsil, Onekama Consulting Unavailable Bursley, Bhupendra Primary Care Unavailable [facility], Joseph Admitting Unavailable Paintsil, Onekama Attending Unavailable Koram, Annamarie Yolanda Admitting Unavailable Koram, Annamarie Yolanda Referring Unavailable Bursley, Bhupendra Primary Care Unavailable Yvon Hogan Consulting Unavailable Yvon Hogan Attending Unavailable Koram, Annamarie Yolanda Admitting Unavailable Koram, Annamarie Yolanda Referring Unavailable Bursley, Bhupendra Primary Care Unavailable Yvon Hogan Consulting Unavailable Yvon Hogan Attending Unavailable Koram, Annamarie Yolanda Admitting Unavailable Koram, Annamarie Yolanda Attending Unavailable Koram, Annamarie Yolanda Referring Unavailable Bursley, Bhupendra Primary Care Unavailable Koram, Annamarie Yolanda Consulting Unavailable Bursley, Bhupendra Primary Care Unavailable Koram, Annamarie Yolanda Admitting Unavailable Koram, Annamarie Yolanda Referring Unavailable Yvon Hogan Attending Unavailable Sementi, Anna Admitting Unavailable Jopperi, Zuhair Attending Unavailable Sementi, Anna Referring Unavailable [facility], Bhupendra Primary Care Unavailable Jopperi, Zuhair Consulting Unavailable Sementi, Anna Admitting Unavailable Sementi, Anna Attending Unavailable Sementi, Anna Referring Unavailable Bursley, Bhupendra Primary Care Unavailable Sementi, Anna Consulting Unavailable Bursley, Bhupendra Primary Care Unavailable Sementi, Anna Admitting Unavailable Sementi, Anna Referring Unavailable Jopperi, Zuhair Attending Unavailable Bursley, Bhupendra Primary Care Unavailable Brooks, Eleazar Attending Unavailable Bursley, Bhupendra Attending Unavailable Bursley, Bhupendra Referring Unavailable Bursley, Bhupendra Primary Care Unavailable Jopperi, Zuhair Admitting Unavailable Jopperi, Zuhair Attending Unavailable Bursley, Bhupendra Primary Care Unavailable Jopperi, Zuhair Consulting Unavailable Paintsil, Onekama Admitting Unavailable Jopperi, Zuhair Attending Unavailable Bursley, Bhupendra Primary Care Unavailable Paintsil, Onekama Consulting Unavailable Bursley, Bhupendra Primary Care Unavailable Jopperi, Zuhair Attending Unavailable Jopperi, Zuhair Admitting Unavailable Jopperi, Zuhair Admitting Unavailable Jopperi, Zuhair Attending Unavailable Bursley, Bhupendra Primary Care Unavailable Jopperi, Zuhair Consulting Unavailable Bursley, Bhupendra Primary Care Unavailable Jopperi, Zuhair Admitting Unavailable Yared Fernández Attending [facility]available [facility]available Bao Quintana Attending Unavailable Paintsil, Onekama Admitting Unavailable Vinay Bear Attending Unavailable Bursley, Bhupendra Primary Care Unavailable Faizan Kamaraan Consulting Unavailable Yvon Hogan Consulting Unavailable Paintsil, Onekama Attending Unavailable Paintsil, Onekama Admitting Unavailable Bursley, Bhupendra Primary Care Unavailable Anh Ricardo Consulting Unavailable KittoeYvon Consulting Unavailable Bursley, Bhupendra Primary Care Unavailable Paintsil, Onekama Admitting Unavailable Faizan Kamaraan Consulting Unavailable Yvon Hogan Attending Unavailable Patriciatsil, Onekama Admitting Unavailable Yvon Hogan Attending Unavailable Bursley, Bhupendra Primary Care Unavailable Kittoe, Yvon Consulting Unavailable Paintsil, Onekama Admitting Unavailable Paintsil, Onekama Attending Unavailable Bursley, Bhupendra Primary Care Unavailable Paintsil, Onekama Consulting Unavailable Paintsil, Onekama Admitting Unavailable Paintsil, Onekama Attending Unavailable Bursley, Bhupendra Primary Care Unavailable Paintsil, Onekama Consulting Unavailable Bursley, Bhupendra Attending Unavailable Bursley, Bhupendra Primary Care Unavailable SHAN MIDDLETON Consulting Unavailable Paintsil, Onekama Attending Unavailable Elliot Bakeran Admitting Unavailable Bursley, Bhupendra Primary Care Unavailable Syed Montanez Consulting Unavailable Imamura, Yoichi Consulting Unavailable Jopperi, Zuhair Admitting Unavailable Jopperi, Zuhair Attending Unavailable Bursley, Bhupendra Primary Care Unavailable Jopperi, Zuhair Consulting Unavailable CHRIS OCONNELL ([facility]) Attending Unavailable CHRIS OCONNELL (DATA INPUT CLERK) Referring Unavailable NANDA OLIVEIRA) Attending Unavailable PAINTSIL, AMA N Referring Unavailable NANDA OLIVEIRA) Referring Unavailable KOREY HANNA Attending Unavailable NANDA OLIVEIRA) Attending Unavailable NANDA OLIVEIRA) Referring Unavailable RUTCHRIS GUADALUPE (DATA INPUT CLERK) Attending Unavailable RUTCHRIS GUADALUPE (DATA INPUT CLERK) Attending Unavailable RUTCHRIS GUADALUPE (DATA INPUT CLERK) Referring Unavailable NANDA OLIVEIRA) Referring Unavailable TOMASAMERJEFFERSON Sewell Admitting Unavailable TOMASAMERE, JEFFERSON Attending Unavailable TOMASAMERE, JEFFERSON Referring Unavailable VILLAMERE, JEFFERSON Admitting Unavailable VILLAMERE, JEFFERSON Attending Unavailable VILLAMERE, JEFFERSON Referring Unavailable VILLAMERE, JEFFERSON Admitting Unavailable VILLAMERE, JEFFERSON Attending Unavailable VILLAMERE, JEFFERSON Referring Unavailable VILLAMERE, JEFFERSON Admitting Unavailable VILLAMERE, JEFFERSON Attending Unavailable VILLAMERE, JEFFERSON Referring Unavailable VILLAMERE, JEFFERSON Admitting Unavailable VILLAMERE, JEFFERSON Attending Unavailable VILLAMERE, JEFFERSON Referring Unavailable VILLAMERE, JEFFERSON Admitting Unavailable VILLAMERE, JEFFERSON Attending Unavailable VILLAMERE, JEFFERSON Referring Unavailable VILLAMERE, JEFFERSON Admitting Unavailable VILLAMERE, JEFFERSON Attending Unavailable VILLAMERE, JEFFERSON Referring Unavailable VILLAMERE, JEFFERSON Referring Unavailable PODKATIE SANCHEZ ([facility]) Attending Unavailable NANDA OLIVEIRA) Referring Unavailable NANDA OLIVEIRA) Attending Unavailable NANDA OLIVEIRA) Referring Unavailable DAVE, LIZETTE (MORGAN) Attending Unavailable BURSLEY, NANDA RODRIGUEZ) Referring Unavailable VILLAMERE, JEFFERSON Referring Unavailable YOUSEFKRZYSZTOF Attending Unavailable VILLAMERE, JEFFERSON Referring Unavailable VILLAMERE, JEFFERSON Referring Unavailable VILLAMERE, JEFFERSON Referring Unavailable PODLOGAR, KATIE (DATA INPUT CLERK) Attending Unavailable VILLAMERE, JEFFERSON Admitting Unavailable VILLAMERE, JEFFERSON Attending Unavailable PODLOGAR, KATIE (DATA INPUT CLERK) Attending Unavailable BURSLEY, NANDA RODRIGUEZ) Attending Unavailable ANDREWDONAL SINGH Attending Unavailable BRIAN, NANDA RODRIGUEZ) Referring Unavailable VILLAMERE, JEFFERSON Attending Unavailable VILLAMERE, JEFFERSON Referring Unavailable MARK, SARAH (DATA INPUT CLERK) Attending Unavailable DAVE, LIZETTE (PA) Referring Unavailable DAVE, LIZETTE (PA) Referring Unavailable DAVE, LIZETTE (PA) Referring Unavailable DAVE, LIZETTE (PA) Referring Unavailable DAVE, LIZETTE (PA) Attending Unavailable DAVE, LIZETTE (PA) Referring Unavailable DAVE, LIZETTE (PA) Referring Unavailable PODLOGAR, KATIE (DATA INPUT CLERK) Attending Unavailable BURSLEY, NANDA RODRIGUEZ) Referring Unavailable PODLOGAR, KATIE (DATA INPUT CLERK) Referring Unavailable DAVE, LIZETTE (PA) Attending Unavailable DAVE, LIZETTE (PA) Referring Unavailable MOULSHAN Attending Unavailable BURSLEYNANDA) Referring Unavailable BURSLEY, NANDA RODRIGUEZ) Attending Unavailable BURSLEY, NANDA RODRIGUEZ) Referring Unavailable BURSLEY, NANDA RODRIGUEZ) Attending Unavailable BURSLEYNANDA) Referring Unavailable RUTTICHRIS (DATA INPUT CLERK) Attending Unavailable BURSLEYNANDA) Attending Unavailable BURSNANDA PANIAGUA) Referring Unavailable BURSLEY, NANDA RODRIGUEZ) Attending Unavailable DEYSI BA (DATA INPUT CLERK) Referring Unavailable BURSLEYNANDA) Referring Unavailable BURSARCELIA, NANDA RODRIGUEZ) Referring Unavailable OLBRYNELI, GAYATHRI Attending Unavailable NANDA OLIVEIRA) Referring Unavailable KALEB, GAYATHRI Referring Unavailable BRIAN, NANDA RODRIGUEZ) Referring Unavailable DONAL ALBRIGHT Attending Unavailable NANDA OLIVEIRA) Referring Unavailable ANDREW, DONAL E Attending Unavailable DONAL ALBRIGHT Referring Unavailable DONAL ALBRIGHT Attending Unavailable NANDA OLIVEIRA Referring Unavailable NANDA OLIVEIRA Primary Care Unavailable DONAL ALBRIGHT Attending Unavailable NANDA OLIVEIRA Primary Care Unavailable DONAL ALBRIGHT Referring Unavailable DONAL ALBRIGHT Attending Unavailable NANDA OLIVEIRA Primary Care Unavailable PROBLEMS PROBLEMS DATE TYPE CONDITION / CODE ATTENDING STATUS SOURCE Active Chronic systolic NA Active [facility] Main failure / [place] I50.22(ICD-10) Repository Active Pneumonia, unspecified NA Active [facility] organism / Clinic Main J18.9(ICD-10) [facility] Active Iron deficiency / NA Active [place] 7 E61.1(ICD-10) Clinic Main [place] [facility] Active Vitamin D deficiency, NA Active [place] [facility] unspecified / Clinic Main E55.9(ICD-10) [facility] Active Acute kidney failure, NA Active [place] [facility] unspecified / Clinic Main N17.9(ICD-10) [facility] Unknown E11.649 - Type 2 Brian, Active [place] 8 diabetes mellitus with [facility] hypoglycemia without Hospital coma / E11.649(ICD-10) Repository Unknown J44.1 - Chronic Gildaley, Active [place] 8 obstructive pulmonary [facility] disease with (acute) Hospital exacerbation / Repository J44.1(ICD-10) Unknown J96.22 - Acute and Bursley, Active Blain 8 chronic respiratory [facility] failure with Hospital hypercapnia / Repository J96.22(ICD-10) Unknown E03.9 - Bursley, Active [place] 8 Hypothyroidism, [facility] unspecified / Hospital E03.9(ICD-10) Repository Unknown Z00.00 - Encounter for Brian, Active [place] 8 general adult medical [facility] examination without Hospital abnormal findings / Repository Z00.00(ICD-10) Active Hypothyroidism, NA Active Rojas 6 unspecified / Clinic Main E03.9(ICD-10) [facility] Unknown G47.33 - Obstructive Bursley, Active Kinjal 8 sleep apnea (adult) [facility] (pediatric) / Hospital G47.33(ICD-10) Repository Active Dyspnea, unspecified / NA [place] [address] R06.00(ICD-10) Clinic Main [place] [facility] Active Other abnormalities of NA [place] [address] breathing / Clinic Main R06.89(ICD-10) [facility] Active Hemoptysis / NA [place] [address] R04.2(ICD-10) Clinic Main [place] [facility] Active Hypokalemia / NA [place] [address] E87.6(ICD-10) Clinic Main [place] [facility] Unknown I25.119 - Bao Marvin [place] [address] 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 / I25.119(ICD-10) Active Abnormal result of DONAL ALBRIGHT [place] [address] other cardiovascular E Clinic Other function study / [place] R94.39(ICD-10) Repository Unknown R94.31 - Abnormal Wan, Bart [place] [address] electrocardiogram Community [ECG] [EKG] / Hospital R94.31(ICD-10) Repository Active Encounter for DONAL ALBRIGHT [place] [address] preprocedural E Clinic Other cardiovascular [place] examination / Repository Z01.810(ICD-10) Active Atherosclerotic heart DONAL ALBRIGHT [place] [address] disease of [place] [facility] Clinic Other coronary artery [place] without angina Repository pectoris / I25.10(ICD-10) Active Essential (primary) DONAL ALBRIGHT [place] [address] hypertension / E Clinic Other I10(ICD-10) [facility] Admitting Unknown / UNK(Unknown) DONAL ALBRIGHT [place] [address] diagnosis [facility] Repository Active Encounter for other JEFFERSON CONNOLLY [place] [address] preprocedural Clinic Main examination / [place] Z01.818(ICD-10) Repository Active Gastroparesis / JEFFERSON CONNOLLY [place] [address] K31.84(ICD-10) Clinic Main [facility] [facility] Active Type 2 diabetes NA Active [place] 8 mellitus with diabetic Clinic Main neuropathy, [place] unspecified / Repository 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 / [facility] Main Z79.4(ICD-10) [facility] [facility] Active Unspecified abnormal NA Active [place] 8 findings in urine / [facility] Main R82.90(ICD-10) [facility] Active Unknown / UNK(Unknown) BRIAN, Active [place] 8 CHRISTOPHER Akira [facility] MICHAEL) [facility] [facility] Active Shortness of breath / NA Active [place] 8 R06.02(ICD-10) [facility] [place] Rep[facility] Active Cough / R05(ICD-10) NA Active [place] 8 [facility] Repository PROCEDURES PROCEDURES No Procedure Records FoundRESULTS RESULTS POTASSIUM Collected: 10/05/2018 Status: F Source: RUSSELL 2:37 PM [facility] REPOSITORY TYPE CODE TESTS RESULT OUT OF REFERENCE UNITS RANGE LAB K 3.7-5.1 mmol/L Low Potassium 3.0 NT PRO BNP Collected: 10/05/2018 Status: F Source: RUSSELL 2:36 PM [facility] REPOSITORY TYPE CODE TESTS RESULT OUT OF REFERENCE UNITS RANGE LAB PBNP <125 pg/mL High PRO B Natr 2453 Peptide Performed By: #### NTBNP, TSH #### [facility] [address] [place], [place] [address] TSH Collected: 10/05/2018 Status: F Source: RUSSELL 2:36 PM [facility] REPOSITORY TYPE CODE TESTS RESULT OUT OF RANGE REFERENCE UNITS LAB TSH 0.400-5.500 uU/mL TSH 3.090 Performed By: #### NTBNP, TSH #### [facility] [address] [place], [place] [address] PROGRESS Observed: 10/05/2018 Status: COMPLETED Source: RUSSELL 1:51 PM [facility] REPOSITORY HNO ID: [id number] Author: Gayathri Jacome Service: (none) Author Type: Physician Type: Progress Notes Filed: 10/06/2018 7:55 AM Note Text: [facility] [place], 10/05/2018: INTERVAL HISTORY: Admitted twice in 08/2018 with syncope, lethargy, dysarthria, aphasia, and falls. Sometimes short of breath, Not too bad today. I do cough a lot. My back and right ribs are so sore from coughing. Cough is occasionally productive of non-purulent sputum. No hemoptysis. Claims consistent compliance with BiPAP, Christine night. Wakes refreshed, but still complains of daytime hypersomnolence. ROS: Reviewed with patient, confirmed as documented by Katja Campoverde LPN. TO Allergies reviewed and updated, and medications reconciled today. PMH: Updated with patient today. There is no COPD listed. FAMH: Updated with patient today. SOCH: Updated with patient today. PHYSICAL EXAMINATION: BP 122/80 Pulse 58 Resp 22 Ht 5' 2 (1.58m) Wt 205 lb (93.0kg) SpO2 95% BMI 37.49 kg/(m2). Gen: No acute distress. Cooperative with examinationobese. Pear shaped torso. ENT: Sclerae clear. Nares clear. Oral hygeine good. Pharynx clear. No halitosis. Resp: No stridor, accessory respiratory muscle use, supra- sternal or intercostal retractions. No crackles, wheezes, rubs. CV: Irregularly irregular rythm. Heart tones normal. Unable to visualize JVP, HJR. No carotid bruit. Radial pulses normal. Abd: Obese, pendulous, not distended. MSK: Mild to moderate dorsal kyphosis. Ext: Warm and well perfused. No clubbing, cyanosis, edema, sclerodactyly, Raynaud's. Skin: Color normal. Texture normal. No rash, eczema, urticaria, telangiectasia, ecchymoses. Lymph: Unable to appreciate adenopathy in neck, supra-clavicular fossae. Endo: Unable to appreciate goiter. No exophthalmos, onycholysis. Neuro: Mental status normal. Affect normal. Muscle strength symmetrical. No tremor. DATA REVIEW: CXR 09/30/2018: Comparison: ?02/08/2018 RESULT: Lines, tubes, and devices: ?None. Lungs and pleura: ?Cardiomegaly is seen. ?Lung pérez are clear. ?No pleural fluid or pneumothorax is identified. Diffuse osteopenia. ?Somewhat exaggerated dorsal kyphosis. I have personally and independently reviewed these CXR images and note clear lung pérez and pleural spaces, cardiomegaly with C:T ratio 167: 297. TO PFT 03/20/2018 Spirometry ? Ref? ? ?Ann ?% Ref ? ? ? FVC ?Liters ? ? ?2.96 ?1.50 ?51 FEV1 ? ? ? Liters ? ? ?2.27 ? ? ? 1.11 ?49 FEV1/FVC ? % ? ? ? 0.77 ?0.74 Lung Volumes TLC ?Liters ? ? ?4.73 ?2.81 ?59 RV ? Liters ? ? ?1.94 ? 1.31 ?67 Diffusing Capacity DLCO ? ? ? 20.5 ?9.6 ? 47 DLCO/VA 4.49 ? ? ? 4.42 ?99 Left Heart Cath, [facility], 12/23/2017: Right dominant. LVEF 75%. Normal wall motion. Normal systolic function. Normal LVEDP (10). LMCA: 20% stenosis. LAD: 40% stenosis mid LAD, 50% stenosis distal LAD. LCx: Occluded at its midpoint. RCA: Mild luminal irregularities less than 30%. RT PDA: Mild luminal irregularities less than 30%. Bao Marvin MD [facility] 09/09/2018 09/10/2018 BNP 124.8 (0-100) pH 7.38 pCO2 54.7 pO2 77 HCO3 32.6 FiO2 30% CXR report, [facility], 09/09/2018: Lungs are not fully expanded. There is a right upper lobe medial opacity. An infiltrate cannot be excluded. Cardiomegaly. Normal mediastinum and tracie. Normal visualized pulmonary arteries. Normal visualized aortic arch and ascending thoracic aorta. Degenerative changes of thoracic spine. Normal visualized ribs, clavicles and shoulders. I have NOT personally and independently reviewed these CXR images. TO IMPRESSION: Chronic hypercarbic respiratory failure appears to be due to the mechanical effects of obesity and co-existing chronic diastolic congestive heart failure. There is also history of hypothyroidism. Current and prior Pulmonary Function Testing shows no evidence of obstructive ventilatory impairment; FEV1/FVC ration is normal. DLCO/VA is normal, consistent with the mechanical effects of obesity. Current CXR shows cardiomegaly and no evidence of pulmonary fibrosis. RECOMMENDATIONS: Current NT pro BNP to evaluate for decompensated congestive heart failure. Current TSH to evaluate for adequacy of thyroid hormone replacement. Further recommendations to follow these results. I addressed the questions of the patient, and she expressed understanding and acceptance of my answers. Gayathri Jacome MD, [facility] Surgery [address] [address] P: [phone] F: [phone] [email or web address] ADDENDUM, 10/06/2018: I informed the patient of the TSH and NT pro BNP results from yesterday in the [employer] message below: Mrs. Panda, Component ?Latest Ref Rng AND Units ? 10/05/2018 ? NT Pro BNP ? <125 pg/mL ? 2,453 (H) ? TSH ? 0.400 - 5.500 uU/mL ?3.090 ? The normal TSH indicates that thyroid hormone replacemnt dose is adequate. The significantly elevated NT pro BNP is consistent with with decompensated congestive heart failure, as I suspected. I will be sharing these results, and my note from our clinic visit yesterday, with Dr. Oliveira and Andrew, and I will defer diuretic doing to them. Please reply to this message to confirm you have received it. Thank you. Gayathri Jacome MD, [facility] [place] ? [facility] Surgery [address] ?[address] CNOV Observed: 10/05/2018 Status: COMPLETED Source: RUSSELL 1:00 PM [facility] REPOSITORY Office Visit (PULMWS) TAMIA PANDA ([id number]) 1955 F Date Time Provider Department 10/05/18 1:00 PM GAYATHRI JACOME During your visit today, we recorded the following information about you: Pulse Respiration Blood pressure Weight 58/minute 22/minute 122/80 93 kg Height 1.575 m Katja Campoverde LPN 10/05/2018 1:48 PM Attested Attestation signed by Gayathri Jacome at 10/05/2018 1:54 PM Reviewed with patient, confirmed as documented by Katja Campoverde LPN. TO ROS: General: Generally feels fatigued, achy. Appetite fair. Eyes, Ears, nose, throat: notes post nasal drip. notes rhinorrhea. denies purulent nasal discharge. denies epistaxis. denies hoarseness. Vision stable. Cardiac: notes angina, notes edema, notes orthopnea. GI: occasional heartburn. notes dysphagia. denies diarrhea. Uro/LOG CUT OFF SAWYER: denies dysuria. denies hesitancy. denies nocturia. Menses: post menopausal Musculoskeletal: I ache all over Neuro: notes headache, notes focal weakness. notes tremor. Skin: notes itching/rash in abdominal folds, treated as yeast by PCP. Otherwise negative. Gayathri Jacome MD 10/06/2018 7:55 AM Addendum [facility] [place], 10/05/2018: INTERVAL HISTORY: Admitted twice in 08/2018 with syncope, lethargy, dysarthria, aphasia, and falls. Sometimes short of breath, Not too bad today. I do cough a lot. My back and right ribs are so sore from coughing. Cough is occasionally productive of non-purulent sputum. No hemoptysis. Claims consistent compliance with BiPAP, Christine night. Wakes refreshed, but still complains of daytime hypersomnolence. ROS: Reviewed with patient, confirmed as documented by Katja Campoverde LPN. TO Allergies reviewed and updated, and medications reconciled today. PMH: Updated with patient today. There is no COPD listed. FAMH: Updated with patient today. SOCH: Updated with patient today. PHYSICAL EXAMINATION: BP 122/80 Pulse 58 Resp 22 Ht 5' 2 (1.58m) Wt 205 lb (93.0kg) SpO2 95% BMI 37.49 kg/(m2). Gen: No acute distress. Cooperative with examinationobese. Pear shaped torso. ENT: Sclerae clear. Nares clear. Oral hygeine good. Pharynx clear. No halitosis. Resp: No stridor, accessory respiratory muscle use, supra- sternal or intercostal retractions. No crackles, wheezes, rubs. CV: Irregularly irregular rythm. Heart tones normal. Unable to visualize JVP, HJR. No carotid bruit. Radial pulses normal. Abd: Obese, pendulous, not distended. MSK: Mild to moderate dorsal kyphosis. Ext: Warm and well perfused. No clubbing, cyanosis, edema, sclerodactyly, Raynaud's. Skin: Color normal. Texture normal. No rash, eczema, urticaria, telangiectasia, ecchymoses. Lymph: Unable to appreciate adenopathy in neck, supra-clavicular fossae. Endo: Unable to appreciate goiter. No exophthalmos, onycholysis. Neuro: Mental status normal. Affect normal. Muscle strength symmetrical. No tremor. DATA REVIEW: CXR 09/30/2018: Comparison: ?02/08/2018 RESULT: Lines, tubes, and devices: ?None. Lungs and pleura: ?Cardiomegaly is seen. ?Lung pérez are clear. ?No pleural fluid or pneumothorax is identified. Diffuse osteopenia. ?Somewhat exaggerated dorsal kyphosis. I have personally and independently reviewed these CXR images and note clear lung pérez and pleural spaces, cardiomegaly with C:T ratio 167: 297. TO PFT 03/20/2018 Spirometry ? Ref? ? ?Ann ?% Ref ? ? ? FVC ?Liters ? ? ?2.96 ?1.50 ?51 FEV1 ? ? ? Liters ? ? ?2.27 ? ? ? 1.11 ?49 FEV1/FVC ? % ? ? ? 0.77 ?0.74 Lung Volumes TLC ?Liters ? ? ?4.73 ?2.81 ?59 RV ? Liters ? ? ?1.94 ? 1.31 ?67 Diffusing Capacity DLCO ? ? ? 20.5 ?9.6 ? 47 DLCO/VA 4.49 ? ? ? 4.42 ?99 Left Heart Cath, [facility], 12/23/2017: Right dominant. LVEF 75%. Normal wall motion. Normal systolic function. Normal LVEDP (10). LMCA: 20% stenosis. LAD: 40% stenosis mid LAD, 50% stenosis distal LAD. LCx: Occluded at its midpoint. RCA: Mild luminal irregularities less than 30%. RT PDA: Mild luminal irregularities less than 30%. Bao Marvin MD [facility] 09/09/2018 09/10/2018 BNP 124.8 (0-100) pH 7.38 pCO2 54.7 pO2 77 HCO3 32.6 FiO2 30% CXR report, [facility], 09/09/2018: Lungs are not fully expanded. There is a right upper lobe medial opacity. An infiltrate cannot be excluded. Cardiomegaly. Normal mediastinum and tracie. Normal visualized pulmonary arteries. Normal visualized aortic arch and ascending thoracic aorta. Degenerative changes of thoracic spine. Normal visualized ribs, clavicles and shoulders. I have NOT personally and independently reviewed these CXR images. TO IMPRESSION: Chronic hypercarbic respiratory failure appears to be due to the mechanical effects of obesity and co-existing chronic diastolic congestive heart failure. There is also history of hypothyroidism. Current and prior Pulmonary Function Testing shows no evidence of obstructive ventilatory impairment; FEV1/FVC ration is normal. DLCO/VA is normal, consistent with the mechanical effects of obesity. Current CXR shows cardiomegaly and no evidence of pulmonary fibrosis. RECOMMENDATIONS: Current NT pro BNP to evaluate for decompensated congestive heart failure. Current TSH to evaluate for adequacy of thyroid hormone replacement. Further recommendations to follow these results. I addressed the questions of the patient, and she expressed understanding and acceptance of my answers. Gayathri Jacome MD, [facility] Surgery [address] [address] P: [phone] F: [phone] [email or web address] ADDENDUM, 10/06/2018: I informed the patient of the TSH and NT pro BNP results from yesterday in the [employer] message below: Mrs. Panda, Component ?Latest Ref Rng AND Units ? 10/05/2018 ? NT Pro BNP ? <125 pg/mL ? 2,453 (H) ? TSH ? 0.400 - 5.500 uU/mL ?3.090 ? The normal TSH indicates that thyroid hormone replacemnt dose is adequate. The significantly elevated NT pro BNP is consistent with with decompensated congestive heart failure, as I suspected. I will be sharing these results, and my note from our clinic visit yesterday, with Dr. Oliveira and Andrew, and I will defer diuretic doing to them. Please reply to this message to confirm you have received it. Thank you. Gayathri Jacome MD, [facility] [place] ? [facility] [address] ?[address] Gayathri Jacome MD 10/05/2018 2:13 PM Signed IMPRESSION: Respiratory problem of chronic hypercarbic respiratory failure appears to be due to the mechanical effects of obesity and co-existing chronic diastolic congestive heart failure. There is also history of hypothyroidism. Current Pulmonary Function Testing shows no evidence of asthma, emphysema, COPD or pulmonary fibrosis. Current CXR shows cardiomegaly and no evidence of pulmonary fibrosis. RECOMMENDATIONS: Check current NT pro BNP to evaluate for decompensated congestive heart failure. Check current TSH to evaluate for adequacy of thyroid hormone replacement. Further recommendations to follow these results. Gayathri Jacome MD, [facility] [place] [facility] [address] [place] [address] P: [phone] F: [phone] [email or web address] Referring Provider: NANDA OLIVEIRA) [[id number]] Allergies As of Date: 10/05/2018 Noted Allergy Reaction ADHESIVE TAPE (ROSINS) 04/04/2015 5 - Intolerance Comments: Surgical tape leaves rash Irritates skin badly and blisters along with medical tape CATS 04/10/2016 14 - Other: See Comments Comments: Congested and itchy, difficulty breathing DOGS 04/10/2016 14 - Other: See Comments Comments: Congestion, sneezing, and difficulty breathing ORPHENADRINE 04/10/2016 16 - Unknown CAPSAICIN 03/02/2018 9 - Itching CIPROFLOXACIN 12/11/2011 14 - Other: See Comments Comments: Red, hot, itchy rash KEFLEX (CEPHALEXIN) 07/10/2016 4 - Hives Comments: Negative skin testing and successful completion of an oral amoxicillin challenge was completed on 03/02/2018. Cephalexin shares an almost identical R1 side chain to amoxicillin; therefore, it is unlikely that she would be at elevated risk for developing an IgE-mediated reaction (allergic/anaphylactic). If she should need this medication in the future, I would recommend giving the first dose in a supervised medical setting. If no reaction after 30 minutes, proceed with regular dosing. NIACIN 04/04/2015 16 - Unknown Comments: Pt states its niacin its niaspan REGLAN (METOCLOPRAMIDE HCL) 03/04/2017 14 - Other: See Comments Comments: Unable to sleep XANTHINES 10/18/2004 16 - Unknown ZOFRAN (ONDANSETRON HCL (PF)) 02/03/2018 9 - Itching Date Reviewed: 10/05/2018 Reviewed by: Gayathri Olbrych - Fully Assessed Reason for Visit: Established Patient [175] Cmt: COPD Primary Visit Diagnosis:PARESH (obstructive sleep apnea) [G47.33] Other Visit Diagnoses:Obesity hypoventilation syndrome (HCC) [E66.2] Chronic systolic congestive heart failure (HCC) [I50.22] Hypothyroidism, unspecified type [E03.9] Chronic respiratory failure with hypercapnia (HCC) [J96.12] Order(s):NT PRO BNP [SQNTBNP] Order #: [id number] FUTURE TSH BLD [SQTSH] Order #: [id number] FUTURE Prescriptions as of 10/05/2018 Sig: NITROGLYCERIN 0.4 MG SUBLINGU* DISSOLVE 1 TAB UNDER THE TONG* X POTASSIUM CHLORIDE ER 10 MEQ * Take 1 tablet by mouth daily * INSULIN GLARGINE (U-100) 100 * Inject 44 units subcutaneousl* ERGOCALCIFEROL (VITAMIN D2) 5* Take 1 capsule by mouth once * ASCORBIC ACID (VITAMIN C) 500* TAKE 1 TABLET BY MOUTH DAILY FERROUS GLUCONATE 324 MG (38 * TAKE 1 TABLET BY MOUTH DAILY * DOCUSATE SODIUM 100 MG CAPSULE Take 1 capsule by mouth once * SENNOSIDES 8.6 MG TABLET Take 1 tablet by mouth twice * ASPIRIN 81 MG TABLET,DELAYED * Take 1 tablet by mouth every * ONETOUCH ULTRA BLUE TEST STRIP USE DIRECTED TO CHECK BLOO* ONETOUCH DELICA LANCETS 30 GA* USE TO CHECK BLOOD SUGAR 4-5 * ISOSORBIDE MONONITRATE ER 60 * TAKE 1 AND 1/2 TABLETS BY MOUTH* GLUCOSE 4 GRAM CHEWABLE TABLET TAKE 4 TABLETS BY MOUTH NE* BUSPIRONE 7.5 MG TABLET TAKE 1 TABLET BY MOUTH TWICE * DULOXETINE 60 MG CAPSULE,MARIA EUGENIA* TAKE 1 CAPSULE BY MOUTH DAILY METOPROLOL TARTRATE 100 MG TA* TAKE 1 TABLET BY MOUTH TWICE * OMEPRAZOLE 20 MG CAPSULE,MARIA EUGENIA* TAKE 1 CAPSULE BY MOUTH EVERY* ATORVASTATIN 40 MG TABLET TAKE 1 TABLET BY MOUTH DAILY LEVOTHYROXINE 100 MCG TABLET TAKE 1 TABLET BY MOUTH EVERY * FUROSEMIDE 40 MG TABLET Take 1 tablet by mouth twice * IBUPROFEN 200 MG TABLET Take 200 mg by mouth every 6 * ELIQUIS 2.5 MG TABLET TAKE 1 TABLET BY MOUTH TWICE * PROMETHAZINE 25 MG TABLET Take 1 tablet by mouth every * ALBUTEROL SULFATE HFA 90 MCG/* Inhale 2 Puffs as instructed * BIPAP Bilevel PAP 16/12 cmH2O with * INSULIN LISPRO (U-200) 200 UN* Inject subcutaneously 14 unit* METFORMIN ER 500 MG TABLET,EX* TAKE 2 TABLETS BY MOUTH TWICE* PSEUDOEPHEDRINE-GUAIFENESIN E* Take 1 tablet by mouth twice * ESTRADIOL 0.01% (0.1 MG/GRAM)* Apply pea-sized amount to per* COMPOUNDED PRESCRIPTION Please fit for BiPAP mask. COMPOUNDED PRESCRIPTION OCD Titration for portable ox* CAPSAICIN 0.075 % TOPICAL CRE* Apply 1 application to affect* ULTICARE PEN NEEDLE 31 GAUGE * USE DIRECTED. TO INJECT IN* DILTIAZEM SR 180 MG 24 HR CAP TAKE 1 CAPSULE BY MOUTH EVERY* GLUCOSE 4 GRAM CHEWABLE TABLET Take 4 tablets by mouth as ne* OXYGEN (HOME THERAPY) Inhale 3 L/min as instructed * FLUTICASONE 50 MCG/ACTUATION * Use 2 Sprays in each nostril * COMPOUNDED PRESCRIPTION Evaluation for diabetic shoes* INCONTINENCE PAD, LINER, DISP* 1 Device as needed (urinary i* COMPOUNDED PRESCRIPTION BLOOD PRESSURE CUFF FOR HOME * BLOOD-GLUCOSE METER KIT UAD to test blood sugar ALCOHOL SWABS UAD to clean skin before test* Problem List As Of Date 10/05/2018 Noted Resolved SUBJECTIVE TINNITUS [H93.19] INVALID FOR* PARESH treated with BiPAP [G47.33] INVALID FOR* Hyperlipidemia [E78.5] INVALID FOR* Coronary disease [I25.10] INVALID FOR* Diabetes mellitus, type II ([facility]) [E11.9] INVALID FOR* Morbid obesity ([facility]) [E66.01] Hypothyroidism [E03.9] Anxiety [F41.9] Sleep apnea [G47.30] 02/14/2017 Essential hypertension [I10] Coronary artery disease of [place] artery of [place]* AF (paroxysmal atrial fibrillation) ([facility]) [I48.* COPD (chronic obstructive pulmonary disease) (H* GERD without esophagitis [K21.9] Dysphagia [R13.10] Constipation [K59.00] DM type 2 (diabetes mellitus, type 2) ([facility]) [E1* 02/14/2017 Shortness of breath [R06.02] 02/14/2017 Arthritis [M19.90] More... CHF (congestive heart failure) ([facility]) [I50.9] BPPV (benign paroxysmal positional vertigo) [H8*INVALID FOR* RLS (restless legs syndrome) [G25.81] INVALID FOR* Iron deficiency concern: RE RLS [E61.1] INVALID FOR* Tubular adenoma [D36.9] INVALID FOR* Incontinence [R32] More... Gastroparesis [K31.84] INVALID FOR* Pre-op testing [Z01.818] INVALID FOR* More... Hypercapnia [R06.89] INVALID FOR* S/P coronary artery stent placement [Z95.5] INVALID FOR* Stage 3 chronic kidney disease [N18.3] INVALID FOR* Depression [F32.9] INVALID FOR* Obesity, Class II, BMI 35-39.9 [E66.9] INVALID FOR* Vitamin D deficiency [E55.9] Notes for Staff Call patient with results Other instructions from your clinician: IMPRESSION: Respiratory problem of chronic hypercarbic respiratory failure appears to be due to the mechanical effects of obesity and co-existing chronic diastolic congestive heart failure. There is also history of hypothyroidism. Current Pulmonary Function Testing shows no evidence of asthma, emphysema, COPD or pulmonary fibrosis. Current CXR shows cardiomegaly and no evidence of pulmonary fibrosis. RECOMMENDATIONS: Check current NT pro BNP to evaluate for decompensated congestive heart failure. Check current TSH to evaluate for adequacy of thyroid hormone replacement. Further recommendations to follow these results. Gayathri Jacome MD, [facility] [place] [facility] [address] [place] [place] [id number] P: [phone] F: [phone] [email or web address] Visit Notes: >> Katja Campoverde LISA FriOct 05, 2018 1:21 PM Status: Attested ROS: General: Generally feels fatigued, achy. Appetite fair. Eyes, Ears, nose, throat: notes post nasal drip. notes rhinorrhea. denies purulent nasal discharge. denies epistaxis. denies hoarseness. Vision stable. Cardiac: notes angina, notes edema, notes orthopnea. GI: occasional heartburn. notes dysphagia. denies diarrhea. Uro/LOG CUT OFF SAWYER: denies dysuria. denies hesitancy. denies nocturia. Menses: post menopausal Musculoskeletal: I ache all over Neuro: notes headache, notes focal weakness. notes tremor. Skin: notes itching/rash in abdominal folds, treated as yeast by PCP. Otherwise negative. Follow Up: Call patient with results Follow-up and Disposition History Recorded Encounter Status:Closed by GAYATHRI JACOME MD on 10/05/18 PROGRESS Observed: 09/30/2018 Status: COMPLETED Source: RUSSELL 5:23 PM [facility] REPOSITORY HNO ID: [id number] Author: Saad Allen) Larry Service: (none) Author Type: Registered Nurse Type: Progress Notes Filed: 09/30/2018 5:26 PM Note Text: PRIMARY CARE COORDINATION QUICK NOTE Provider Action/FYI TC to patient, informed Clotrimazole vaginal cream was sent to [facility]. Pt should call in the morning and ask them to deliver it to her. Also continue Diflucan as directed. Pt to increase Lantus insulin to 44 units BID and PCC will call next week for BS Patient identified by name and date . Saad Silvestre RN September 30, 2018 5:06 PM PROGRESS Observed: 09/30/2018 Status: COMPLETED Source: RUSSELL 5:02 PM [facility] REPOSITORY HNO ID: [id number] Author: Nanda Rodriguez) Brian Service: (none) Author Type: Physician Type: Progress Notes Filed: 09/30/2018 5:09 PM Note Text: Would have her continue the diflucan and start on Clotrimazole vaginal cream qhs for 3 days. if not improving after she completes the diflucan would need to come in for evaluation. BS still elevated without hypoglycemia. Recommend patient increase Lantus to 44 units BID. PROGRESS Observed: 09/30/2018 Status: COMPLETED Source: RUSSELL 4:35 PM [facility] REPOSITORY HNO ID: [id number] Author: Saad Allen) Larry Service: (none) Author Type: Registered Nurse Type: Progress Notes Filed: 09/30/2018 4:57 PM Note Text: PRIMARY CARE COORDINATION FOLLOW-UP NOTE Provider Action/FYI Please note BS Pt will take second dose of Diflucan tomorrow Reports severe itching, burning and noted small amt of bleeding from scratching Vagisil isn't helping Asking if she can have something topical for itching Patient identified by name and date of . YES Spoke to patient Summary: Tamia Panda is a 63 year old female who reports glucose readings as noted. DATE 09/30 09/29 09/28 09/27 09/26 09/25 09/24 Fasting 208 196 219 [phone] 284 Afternoon [phone] 192 Bedtime 190 [phone] Any low blood sugars during this period of reporting No Patient's diabetes medications as follows: insulin glargine (LANTUS SOLOSTAR U-100 INSULIN) Inject 40 units subcutaneously twice daily insulin lispro (HUMALOG KWIKPEN INSULIN) Inject subcutaneously 14 units with breakfast, 22 units with lunch, and 24 units with dinner Cleaning Supervisor plan for next outreach: Will follow up one week Signature Saad Silvestre RN September 30, 2018 POTASSIUM Collected: 09/30/2018 Status: F Source: RUSSELL 11:53 AM [facility] REPOSITORY TYPE CODE TESTS RESULT OUT OF REFERENCE UNITS RANGE LAB K 3.7-5.1 mmol/L Low Potassium 3.4 Performed By: #### K1, MG1 #### [facility] [address] [place], [place] [address] MAGNESIUM Collected: 09/30/2018 Status: F Source: RUSSELL 11:53 AM [facility] REPOSITORY TYPE CODE TESTS RESULT OUT OF REFERENCE UNITS RANGE LAB MG 1.7-2.3 mg/dL Magnesium 1.7 Performed By: #### K1, MG1 #### [facility] [address] [place], [place] [address] XR CHEST 2V FRONTAL/LAT Observed: 09/30/2018 Status: F Source: RUSSELL 11:35 AM [facility] REPOSITORY * * *Final Report* * * DATE OF EXAM: Sep 30 2018 11:35AM WOX [id number] - XR CHEST 2V FRONTAL/LAT / PROCEDURE REASON: Community acquired pneumonia, unspecified laterality * * * * Physician Interpretation * * * * EXAMINATION: CHEST RADIOGRAPH (2 VIEW FRONTAL and LATERAL) CLINICAL HISTORY: Community acquired pneumonia, unspecified laterality MQ: XC2_5 Comparison: 02/08/2018 RESULT: Lines, tubes, and devices: None. Lungs and pleura: Cardiomegaly is seen. Lung pérez are clear. No pleural fluid or pneumothorax is identified. Diffuse osteopenia. Somewhat exaggerated dorsal kyphosis. IMPRESSION: No acute radiographic abnormality. Cardiomegaly Pipe Recovery Specialist: PSCB Transcribe Date/Time: Sep 30 2018 2:17P Dictated by : LUIS BALBUENA MD This examination was interpreted and the report reviewed and electronically signed by: LUIS BALBUENA MD on Sep 30 2018 2:19PM EST [id number] PROGRESS Observed: 09/30/2018 Status: COMPLETED Source: RUSSELL 11:27 AM [facility] REPOSITORY HNO ID: [id number] Author: Mackenzie Sotelo (Rt) Edis Lopez Service: (none) Author Type: Senior Java Architect Type: Progress Notes Filed: 09/30/2018 11:36 AM Note Text: Radiology Service Progress Note PATIENT NAME: Tamia Panda DATE OF SERVICE: September 30, 2018 TIME: 11:27 AM PATIENT IDENTITY VERIFICATION COMPLETED USING TWO (2) METHODS: Patient confirmed name verbally and Date of . PATIENT GENDER DATA: Female. status: : No status: NO. PATIENT RELEVANT IMPLANT DATA REVIEWED: Not Applicable RADIOLOGY DEPARTMENT: General X-ray: Exam(s) Completed: Chest X-Ray PERIPHERAL IV DATA: Not applicable SIGNED BY: RT Kamran September 30, 2018 11:27 AM CNPTOUTREACH Observed: 09/30/2018 Status: COMPLETED Source: RUSSELL 12:00 AM [facility] REPOSITORY Patient Outreach (FAMPWS) STEVIE PANDAS Jennifer ([id number]) 1955 F Date Time Provider Department 09/30/18 SAAD SILVESTRE) FAMPWS During your visit today, we recorded the following information about you: Saad Silvestre RN 09/30/2018 4:57 PM Signed PRIMARY CARE COORDINATION FOLLOW-UP NOTE Provider Action/FYI Please note BS Pt will take second dose of Diflucan tomorrow Reports severe itching, burning and noted small amt of bleeding from scratching Vagisil isn't helping Asking if she can have something topical for itching Patient identified by name and date of . YES Spoke to patient Summary: Tamia Panda is a 63 year old female who reports glucose readings as noted. DATE 09/30 09/29 09/28 09/27 09/26 09/25 09/24 Fasting 208 196 219 174 358 284 284 Afternoon [phone] 192 Bedtime 190 [phone] Any low blood sugars during this period of reporting No Patient's diabetes medications as follows: insulin glargine (LANTUS SOLOSTAR U-100 INSULIN) Inject 40 units subcutaneously twice daily insulin lispro (HUMALOG KWIKPEN INSULIN) Inject subcutaneously 14 units with breakfast, 22 units with lunch, and 24 units with dinner Cleaning Supervisor plan for next outreach: Will follow up one week Signature Saad Silvestre RN September 30, 2018 Nanda Oliveira MD 09/30/2018 5:09 PM Addendum Would have her continue the diflucan and start on Clotrimazole vaginal cream qhs for 3 days. if not improving after she completes the diflucan would need to come in for evaluation. BS still elevated without hypoglycemia. Recommend patient increase Lantus to 44 units BID. Saad Silvestre RN 09/30/2018 5:26 PM Signed PRIMARY CARE COORDINATION QUICK NOTE Provider Action/FYI TC to patient, informed Clotrimazole vaginal cream was sent to [facility]. Pt should call in the morning and ask them to deliver it to her. Also continue Diflucan as directed. Pt to increase Lantus insulin to 44 units BID and PCC will call next week for BS Patient identified by name and date . Saad Silvestre RN September 30, 2018 5:06 PM Allergies As of Date: 09/30/2018 Noted Allergy Reaction ADHESIVE TAPE (ROSINS) 04/04/2015 5 - Intolerance Comments: Surgical tape leaves rash Irritates skin badly and blisters along with medical tape CATS 04/10/2016 14 - Other: See Comments Comments: Congested and itchy, difficulty breathing DOGS 04/10/2016 14 - Other: See Comments Comments: Congestion, sneezing, and difficulty breathing ORPHENADRINE 04/10/2016 16 - Unknown CAPSAICIN 03/02/2018 9 - Itching CIPROFLOXACIN 12/11/2011 14 - Other: See Comments Comments: Red, hot, itchy rash KEFLEX (CEPHALEXIN) 07/10/2016 4 - Hives Comments: Negative skin testing and successful completion of an oral amoxicillin challenge was completed on 03/02/2018. Cephalexin shares an almost identical R1 side chain to amoxicillin; therefore, it is unlikely that she would be at elevated risk for developing an IgE-mediated reaction (allergic/anaphylactic). If she should need this medication in the future, I would recommend giving the first dose in a supervised medical setting. If no reaction after 30 minutes, proceed with regular dosing. NIACIN 04/04/2015 16 - Unknown Comments: Pt states its niacin its niaspan REGLAN (METOCLOPRAMIDE HCL) 03/04/2017 14 - Other: See Comments Comments: Unable to sleep XANTHINES 10/18/2004 16 - Unknown ZOFRAN (ONDANSETRON HCL (PF)) 02/03/2018 9 - Itching Date Reviewed: 09/25/2018 Reviewed by: Clayton Serna Ma - Fully Assessed Reason for Visit: Glove Cuffer Chronic Care [0645] Visit Diagnosis:Type 2 diabetes mellitus with diabetic neuropathy, with long-term current use of insulin ([facility]) [E11.40, Z79.4] Order(s):insulin glargine (LANTUS SOLOSTAR U-100 INSULIN) 100 unit/mL (3 mL) inpnInject 44 units subcutaneously twice dailyDisp: 3 PenRfl: 1 clotrimazole (LOTRIMIN) 1 % vaginal creamUse 1 Applicatorful vaginally daily at bedtime for 3 days.Disp: 20 gRfl: 0 Prescriptions as of 09/30/2018 Sig: INSULIN GLARGINE (U-100) 100 * Inject 44 units subcutaneousl* CLOTRIMAZOLE 1 % VAGINAL CREAM Use 1 Applicatorful vaginally* ERGOCALCIFEROL (VITAMIN D2) 5* Take 1 capsule by mouth once * ASCORBIC ACID (VITAMIN C) 500* TAKE 1 TABLET BY MOUTH DAILY FERROUS GLUCONATE 324 MG (38 * TAKE 1 TABLET BY MOUTH DAILY * DOCUSATE SODIUM 100 MG CAPSULE Take 1 capsule by mouth once * SENNOSIDES 8.6 MG TABLET Take 1 tablet by mouth twice * ASPIRIN 81 MG TABLET,DELAYED * Take 1 tablet by mouth every * FLUCONAZOLE 100 MG TABLET Take 1 tablet by mouth every * ONETOUCH ULTRA BLUE TEST STRIP USE DIRECTED TO CHECK BLOO* ONETOUCH DELICA LANCETS 30 GA* USE TO CHECK BLOOD SUGAR 4-5 * ISOSORBIDE MONONITRATE ER 60 * TAKE 1 AND 1/2 TABLETS BY MOUTH* GLUCOSE 4 GRAM CHEWABLE TABLET TAKE 4 TABLETS BY MOUTH NE* BUSPIRONE 7.5 MG TABLET TAKE 1 TABLET BY MOUTH TWICE * DULOXETINE 60 MG CAPSULE,MARIA EUGENIA* TAKE 1 CAPSULE BY MOUTH DAILY METOPROLOL TARTRATE 100 MG TA* TAKE 1 TABLET BY MOUTH TWICE * OMEPRAZOLE 20 MG CAPSULE,MARIA EUGENIA* TAKE 1 CAPSULE BY MOUTH EVERY* ATORVASTATIN 40 MG TABLET TAKE 1 TABLET BY MOUTH DAILY LEVOTHYROXINE 100 MCG TABLET TAKE 1 TABLET BY MOUTH EVERY * FUROSEMIDE 40 MG TABLET Take 1 tablet by mouth twice * IBUPROFEN 200 MG TABLET Take 200 mg by mouth every 6 * ELIQUIS 2.5 MG TABLET TAKE 1 TABLET BY MOUTH TWICE * PROMETHAZINE 25 MG TABLET Take 1 tablet by mouth every * ALBUTEROL SULFATE HFA 90 MCG/* Inhale 2 Puffs as instructed * BIPAP Bilevel PAP 16/12 cmH2O with * INSULIN LISPRO (U-200) 200 UN* Inject subcutaneously 14 unit* METFORMIN ER 500 MG TABLET,EX* TAKE 2 TABLETS BY MOUTH TWICE* PSEUDOEPHEDRINE-GUAIFENESIN E* Take 1 tablet by mouth twice * ESTRADIOL 0.01% (0.1 MG/GRAM)* Apply pea-sized amount to per* COMPOUNDED PRESCRIPTION Please fit for BiPAP mask. COMPOUNDED PRESCRIPTION OCD Titration for portable ox* CAPSAICIN 0.075 % TOPICAL CRE* Apply 1 application to affect* ULTICARE PEN NEEDLE 31 GAUGE * USE DIRECTED. TO INJECT IN* DILTIAZEM SR 180 MG 24 HR CAP TAKE 1 CAPSULE BY MOUTH EVERY* NITROGLYCERIN 0.4 MG SUBLINGU* DISSOLVE 1 TAB UNDER THE TONG* GLUCOSE 4 GRAM CHEWABLE TABLET Take 4 tablets by mouth as ne* OXYGEN (HOME THERAPY) Inhale 3 L/min as instructed * FLUTICASONE 50 MCG/ACTUATION * Use 2 Sprays in each nostril * COMPOUNDED PRESCRIPTION Evaluation for diabetic shoes* INCONTINENCE PAD, LINER, DISP* 1 Device as needed (urinary i* COMPOUNDED PRESCRIPTION BLOOD PRESSURE CUFF FOR HOME * BLOOD-GLUCOSE METER KIT UAD to test blood sugar ALCOHOL SWABS UAD to clean skin before test* Problem List As Of Date 09/30/2018 Noted Resolved SUBJECTIVE TINNITUS [H93.19] INVALID FOR* PARESH treated with BiPAP [G47.33] INVALID FOR* Hyperlipidemia [E78.5] INVALID FOR* Coronary disease [I25.10] INVALID FOR* Diabetes mellitus, type II ([facility]) [E11.9] INVALID FOR* Morbid obesity ([facility]) [E66.01] Hypothyroidism [E03.9] Anxiety [F41.9] Sleep apnea [G47.30] 02/14/2017 Essential hypertension [I10] Coronary artery disease of [place] artery of stoney* AF (paroxysmal atrial fibrillation) ([facility]) [I48.* COPD (chronic obstructive pulmonary disease) (H* GERD without esophagitis [K21.9] Dysphagia [R13.10] Constipation [K59.00] DM type 2 (diabetes mellitus, type 2) ([facility]) [E1* 02/14/2017 Shortness of breath [R06.02] 02/14/2017 Arthritis [M19.90] More... CHF (congestive heart failure) ([facility]) [I50.9] BPPV (benign paroxysmal positional vertigo) [H8*INVALID FOR* RLS (restless legs syndrome) [G25.81] INVALID FOR* Iron deficiency concern: RE RLS [E61.1] INVALID FOR* Tubular adenoma [D36.9] INVALID FOR* Incontinence [R32] More... Gastroparesis [K31.84] INVALID FOR* Pre-op testing [Z01.818] INVALID FOR* More... Hypercapnia [R06.89] INVALID FOR* S/P coronary artery stent placement [Z95.5] INVALID FOR* Stage 3 chronic kidney disease [N18.3] INVALID FOR* Depression [F32.9] INVALID FOR* Obesity, Class II, BMI 35-39.9 [E66.9] INVALID FOR* Vitamin D deficiency [E55.9] Prescriptions ordered this encounter Disp Refills Start End INSULIN GLARGINE (U-100) 100 UNIT/ML* 3 Pen 1 09/30/2018 Class: Med Update Sig: Inject 44 units subcutaneously twice daily CLOTRIMAZOLE 1 % VAGINAL CREAM 20 g 0 09/30/2018 10/03/2018 Route: VAGINAL Sig: Use 1 Applicatorful vaginally daily at bedtime for 3 days. Medications Discontinued During This Encounter insulin glargine (LANTUS SOLOSTAR U-* 3 Pen 1 09/24/2018 09/30/2018 Sig: Inject 40 units subcutaneously twice daily Disc: Reason for discontinue is not on file. Encounter Status:Closed by SAAD SILVESTRE on 09/30/18 PROGRESS Observed: 09/28/2018 Status: COMPLETED Source: RUSSELL 9:11 AM [facility] REPOSITORY HNO ID: [id number] Author: Saad Allen) Larry Service: (none) Author Type: Registered Nurse Type: Progress Notes Filed: 09/28/2018 9:13 AM Note Text: PRIMARY CARE COORDINATION FOLLOW-UP NOTE Provider Action/FYI FYI Patient identified by name and date of . YES Spoke to Mica Miner Summary: Informed pt's Lyrica is discontinued, please make note and remove from patient's pill packages, verbalized understanding. Cleaning Supervisor plan for next outreach: Will follow up one week Signature Saad Silvestre RN September 28, 2018 PROGRESS Observed: 09/25/2018 Status: COMPLETED Source: RUSSELL 5:34 PM [facility] REPOSITORY HNO ID: [id number] Author: Saad Allen) Larry Service: (none) Author Type: Registered Nurse Type: Progress Notes Filed: 09/25/2018 5:37 PM Note Text: PRIMARY CARE COORDINATION IN OFFICE VISIT WITH PCP Patient has been identified by name and date of . PCP Assessment/Plan: Reviewed PCP plan with patient using Teach Back Discussed possible loss of BACKEND DEVELOPER if son's are at pt's home when BACKEND DEVELOPER visits. Discussed ramifications of losing home health, pt understands PCC Plan of Care: Patient goals: Pt will work on snacking less to get BS under control PCC Intervention: PCC will call Miryam to discontinue Lyrica order on Fri, 09/28 PCC will call pt next week for BS Next Office Visit: 10/22/2018 Plan For Next Call: One week Saad Silvestre RN September 25, 2018 IRON AND TIBC Collected: 09/25/2018 Status: F Source: RUSSELL 5:06 PM [facility] REPOSITORY TYPE CODE TESTS RESULT OUT OF REFERENCE UNITS RANGE LAB IRN 41-186 ug/dL Iron 45 LAB TIBC 232-386 ug/dL TIBC 301 LAB SAT 15-57 % Transferrin Saturatn 15 Performed By: #### IRON, CMP, FERR, HBA1C, VITD #### [facility] [address] [place], [place] [address] COMP METABOLIC PANEL Collected: 09/25/2018 Status: F Source: RUSSELL 5:06 PM [facility] REPOSITORY TYPE CODE TESTS RESULT OUT OF REFERENCE UNITS RANGE LAB TP 6.3-8.0 g/dL Protein, Total 6.7 LAB ALB 3.9-4.9 g/dL Low Albumin 3.5 LAB CA 8.5-10.2 mg/dL Calcium, Total 8.5 LAB TBIL 0.2-1.3 mg/dL Bilirubin, Total 0.8 LAB ALKP 34-123 U/L Alkaline Phosphatase 49 LAB AST 13-35 U/L AST 17 LAB GLU 74-99 mg/dL Glucose High 207 Result Comment: The [place] Diabetes Association (ADA) provides guidance for cutoff values for fasting glucose and random glucose. The ADA defines fasting as no caloric intake for at least 8 hours. Fas ting plasma glucose results between 100 to 125 mg/dL indicate increased risk for diabetes (prediabetes). Fasting plasma glucose results greater than or equal to 126 mg/dL meet the criteria for diagnosis of diabetes. In the absence of unequivocal hyperglycemia, results should be confirmed by repeat testing. In a patient with classic symptoms of hyperglycemia or hyperglycemic crisis, random plasma glucose results greater than or equal to 200 mg/dL meet the criteria for diagnosis of diabetes. Reference: Standards of Medical Care in Diabetes 2016, [place] Diabetes Association. Diabetes Care. 2016.39(Suppl 1). LAB BUN 7-21 mg/dL BUN 13 LAB CRET 0.58-0.96 mg/dL Creatinine 0.62 LAB NA 136-144 mmol/L Sodium 144 LAB K 3.7-5.1 mmol/L Potassium Low 3.3 LAB CL 97-105 mmol/L Chloride 101 LAB CO2 22-30 mmol/L CO2 30 LAB AGAP 9-18 mmol/L Anion Gap 13 LAB ALT 7-38 U/L ALT 13 LAB GFRAA eGFR- Amer. >60 LAB GFRNAA . eGFR-All Other Races >60 Result Comment: eGFR (Estimated GFR) Units of measure: mL/min/1.73 meters squared eGFR is derived from the reexpressed MDRD Study equation using the following parameters: serum creatinine, age, gender and race. The creatinine assay has been calibrated to be traceable to IDMS. An eGFR <60 mL/min/1.73m2 for >3 months is consistent with chronic kidney disease. Refer to KDOQI guidelines for clinical interpretation. In patients with unstable renal function, e.g. those with acute kidney injury, the eGFR may not accurately reflect actual GFR. Performed By: #### IRON, CMP, FERR, HBA1C, VITD #### [facility] [address] [place] [address] FERRITIN Collected: 09/25/2018 Status: F Source: RUSSELL 5:06 [facility] REPOSITORY TYPE CODE TESTS RESULT OUT OF REFERENCE UNITS RANGE LAB FERR 14.7-205.1 ng/mL Ferritin 138.2 Performed By: #### IRON, CMP, FERR, HBA1C, VITD #### [facility] [address] [place] [address] HEMOGLOBIN A1C Collected: 09/25/2018 Status: F Source: RUSSELL 5:[address] [place] [address] REPOSITORY TYPE CODE TESTS RESULT OUT OF REFERENCE UNITS RANGE LAB HGBA1C 4.3-5.6 % High Hemoglobin A1c 8.4 Result Comment: [place] Diabetes Association guidelines indicate that patients with HgbA1c in the range 5.7-6.4% are at increased risk for development of diabetes, and intervention by lifestyle modification may be beneficial. HgbA1c greater or equal to 6.5% is considered diagnostic of diabetes. LAB HBA0 mg/dL Est. Average Glucose 194 Result Comment: eAG: (Estimated average glucose) is a calculated value from HgbA1c and is software sales representative of the average blood glucose level in the last 2-3 month period. Performed By: #### IRON, CMP, FERR, HBA1C, VITD #### [facility] [address] [place] [address] VITAMIN D 25 HYDROXY Collected: 09/25/2018 Status: F Source: RUSSELL 5:06 [facility] REPOSITORY TYPE CODE TESTS RESULT OUT OF REFERENCE UNITS RANGE LAB VITD 31.0-80.0 ng/mL Low Vitamin D 25 14.5 Hydroxy Result Comment: Classification of 25 [place] Vitamin D status: Insufficiency/Moderate Deficiency: < or = 30 ng/mL Sufficiency/Optimal Levels: 31 to 80 ng/mL Toxicity: > 100 ng/mL Test performed by chemiluminescent immunoassay. Performed By: #### IRON, CMP, FERR, HBA1C, VITD #### [facility] [address] [place], [place] [address] PROGRESS Observed: 09/25/2018 Status: COMPLETED Source: RUSSELL 4:25 PM [facility] REPOSITORY HNO ID: [id number] Author: Nanda Rodriguez) Brian Service: (none) Author Type: Physician Type: Progress Notes Filed: 09/27/2018 5:12 PM Note Text: Chief Complaint Patient presents with: Hospital Follow Up: tcm - also - ongoing back and hip pain HPI Tamia Panda is a 63 year old female who presents here today for Hospital Discharge Follow up. Patient admitted to [facility] from 09/09 to 09/11 with altered mental status found to be 2/2 community acquired pneumonia and TITI. TCM note in bold below. TRANSITION CARE MANAGEMENT (TCM) INITIAL CONTACT ? ? Provider Action/FYI: ? Pt didn't get script for ATB and didn't know she was to be taking ATB Verbal order given by PCP for Augmentin 875 mg Q12H x 7 days Script called to Tejal at [facility] Tejal called back and stated prescription was sent to [facility] and was picked up on 09/11 PCC tried to call pt, line busy ? Initial contact with patient post discharge, spoke to patient. Patient identified by name and . ? TRANSITION CARE MANAGEMENT: Date of Outreach: 09/14/2018 Outreach Attempt 1: Contact Made Date of Discharge 09/11/2018 Some recent data might be hidden ? SUMMARY: -Pt discharged from [facility] on 09/11. -Follow up appointment on 09/18 with Cindi Oconnell NP. -Medication review done No. -Admitted for: 1. Acute metabolic encephalopathy secondary to acute community-acquired pneumonia and acute kidney injury 2. Acute community-acquired pneumonia 3. Acute kidney injury, resolved 4. Paroxysmal atrial fibrillation 5. Hypothyroidism 8. Type 2 diabetes mellitus 7. Anxiety/depression 8. CAD 9. Chronic COPD with chronic hypoxic respiratory failure ? CONCERNS: Pt did not get prescription for Augmentin Reports frequent productive cough expectorating urban mucous ? NEW MEDICATIONS: Augmentin 875 mg PO Q12H #14 ? MEDS HELD/DISCONTINUED: none ? BRIEF HOSPITAL COURSE: Copied from [facility]: ? The patient is a 63 year old F admitted 09/09/2018 due to cough and generalized malaise. Patient was noted to have lethargy and confusion on admission. ? 1. Acute metabolic encephalopathy secondary to acute community-acquired pneumonia and TITI-chest x-ray admission with right upper lobe infiltrate. Brain CT unremarkable. Patient received IV Rocephin and IV azithromycin. Mental status improved. Respiratory panel negative. Patient will be discharged on Augmentin 875 p.o. twice daily for 7 days at discharge. Follow-up with primary care physician in 1 week. Chest X-Ray 09/09/18 17:15 IMPRESSION: Possible right upper lobe infiltrate medially. Cardiomegaly. Patient states that she finished her Augmentin as prescribed and has not had further confusion. Still complains of moist cough for the last 2 months without productive sputum, seems to be slowly improving. Denies wheezing, SOB, fever, Vomiting. Complaining today of vaginal itching and irritation. Unable to tell if she has had any vaginal discharge. Treating Vagisil pads which helps with the itching. Patient living out [address] with sons Avery and Kamari since discharge. Feels safe living with sons. Discussed concerns with them taking advantage of her. Home health out to house to help with bathing, preparing meals, laundry, cleaning around the house. Home health will not be able to help with these things if sons are there, patient has signed contract that sons would not be there when home health is in home. Past medical history, appointments, medications, allergies reviewed. Previous Medical History PAST MEDICAL HISTORY Diagnosis Date - Acute chronic obstructive pulmonary disease with respiratory failure ([facility]) - AF (paroxysmal atrial fibrillation) ([facility]) - Anxiety - Arthritis Seeing Dr Elliott - Cervical cancer ([facility]) hysterectomy - CHF (congestive heart failure) ([facility]) - Chronic back pain Seeing Dr. Wallace - Constipation - COPD (chronic obstructive pulmonary disease) ([facility]) [facility] and [facility] [place] [facility]. - Coronary atherosclerosis of port lions coronary artery Previously seeing Dr. Sosa - DDD (degenerative disc disease), lumbar - DM type 2 (diabetes mellitus, type 2) ([facility]) Seeing Dr. Foley for podiatry - DVT (deep venous thrombosis) ([facility]) Post op INA, BSO. - Dysphagia Seeing Dr. Beaulieu - Emphysema lung (HCC) - Essential hypertension - Functional dyspepsia - Gastroparesis 2017 mild - GERD without esophagitis - Headache - History of colon polyps 11/28/2016 - Hyperlipidemia - Hypothyroidism - Incontinence Seeing Dr. Chapman - Lung nodule 02/[address] in 3 months - Morbid obesity (HCC) - Muscle weakness - Nausea - PARESH on CPAP DME [facility] for BiPAP and [facility] [place] for O2. - PE (pulmonary thromboembolism) (HCC) Post op INA/BSO. - Pneumonia - RLS (restless legs syndrome) - Shortness of breath - Sleep apnea using oxygen currently, not on CPAP - Unsteadiness on feet - Wheezing Previous Surgical History PAST SURGICAL HISTORY Procedure Laterality Date - CHOLECYSTECTOMY - COLONOS W/REM POLYP SNARE 11/28/2016 Repeat 2020 - COLONOSCOPY Has had multiple in the past with polyps, cannot remember dates - EGD W/O BRSH SPECIMEN W/BX 11/28/2016 - HERNIA REPAIR HX multiple - KNEE SURGERY HX Left x3 for torn cartilage - NASAL SURGERY PROCEDURE sinus - TOTAL ABDOM HYSTERECTOMY 1987 Cervical cancer - TUBAL LIGATION HX - WRIST SURGERY HX Right ganglion cyst removal x2 Family History FAMILY HISTORY Problem Relation Age of Onset - Coronary Artery Disease Mother - Coronary Artery Disease Father - Asthma Brother - Coronary Artery Disease Brother - Diabetes Sister - Hypertension Sister - Diabetes Sister - Heart Sister - Allergies Sister - Asthma Sister - Allergies Sister - Emphysema Sister Early stages - COPD Paternal Uncle Patient Allergies ALLERGIES Allergen Reactions - Adhesive Tape (Adrienne* Intolerance Surgical tape leaves rash Irritates skin badly and blisters along with medical tape - Cats Other: See Comments Congested and itchy, difficulty breathing - Dogs Other: See Comments Congestion, sneezing, and difficulty breathing - Orphenadrine Unknown - Capsaicin Itching - Ciprofloxacin Other: See Comments Red, hot, itchy rash - Keflex [Cephalexin] Hives Negative skin testing and successful completion of an oral amoxicillin challenge was completed on 03/02/2018. Cephalexin shares an almost identical R1 side chain to amoxicillin; therefore, it is unlikely that she would be at elevated risk for developing an IgE-mediated reaction (allergic/anaphylactic). If she should need this medication in the future, I would recommend giving the first dose in a supervised medical setting. If no reaction after 30 minutes, proceed with regular dosing. - Niacin Unknown Pt states its niacin its niaspan - Reglan [Metoclopram* Other: See Comments Unable to sleep - Xanthines Unknown - Zofran [Ondansetron* Itching Current Medications Current Outpatient Prescriptions on File Prior to Visit: ascorbic acid, vitamin C, (VITAMIN C) 500 mg tablet TAKE 1 TABLET BY MOUTH DAILY Ferrous Gluconate (FERGON) 324 mg (38 mg iron) tablet TAKE 1 TABLET BY MOUTH DAILY WITH BREAKFAST docusate sodium (STOOL SOFTENER) 100 mg capsule Take 1 capsule by mouth once daily. senna (CLAUDIA-KYLE) 8.6 mg tab Take 1 tablet by mouth twice daily. aspirin, enteric coated (ASPIRIN, ENTERIC COATED) 81 mg EC tablet Take 1 tablet by mouth every morning. insulin glargine (LANTUS SOLOSTAR U-100 INSULIN) 100 unit/mL (3 mL) inpn Inject 40 units subcutaneously twice daily ONETOUCH ULTRA BLUE TEST STRIP test strip USE DIRECTED TO CHECK BLOOD SUGAR 4-5 TIMES DAILY ONETOUCH DELICA LANCETS 30 gauge misc USE TO CHECK BLOOD SUGAR 4-5 TIMES DALIY isosorbide mononitrate ER (IMDUR) 60 mg 24 hr tablet TAKE 1 AND 1/2 TABLETS BY MOUTH EVERY MORNING glucose 4 gram chewable tablet TAKE 4 TABLETS BY MOUTH NEEDED FOR LOW BLOOD SUGAR. busPIRone HCl 7.5 mg tablet TAKE 1 TABLET BY MOUTH TWICE A DAY DULoxetine (CYMBALTA) 60 mg capsule TAKE 1 CAPSULE BY MOUTH DAILY metoprolol tartrate, short acting, (LOPRESSOR) 100 mg tablet TAKE 1 TABLET BY MOUTH TWICE A DAY omeprazole (PRILOSEC) 20 mg capsule TAKE 1 CAPSULE BY MOUTH EVERY MORNING atorvastatin (LIPITOR) 40 mg tablet TAKE 1 TABLET BY MOUTH DAILY levothyroxine (SYNTHROID) 100 mcg tablet TAKE 1 TABLET BY MOUTH EVERY MORNING furosemide (LASIX) 40 mg tablet Take 1 tablet by mouth twice daily. ibuprofen (MOTRIN IB) 200 mg tablet Take 200 mg by mouth every 6 hours as needed. ELIQUIS 2.5 mg tab tab(s) TAKE 1 TABLET BY MOUTH TWICE A DAY promethazine (PHENERGAN) 25 mg tablet Take 1 tablet by mouth every 6 hours as needed. albuterol HFA (PROAIR HFA) 90 mcg/actuation inhaler Inhale 2 Puffs as instructed every 4 hours as needed for Wheezing/Shortness of Breath. LYRICA 100 mg capsule TAKE 1 CAPSULE BY MOUTH THREE TIMES A DAY BIPAP Bilevel PAP 16/12 cmH2O with 2 LPM oxygen bleed in, mask, tubing, filters, heated humidity, lifetime supplies. Dx: G47.33, G47.39. insulin lispro (HUMALOG KWIKPEN INSULIN) 200 unit/mL (3 mL) injection Inject subcutaneously 14 units with breakfast, 22 units with lunch, and 24 units with dinner metFORMIN ER (GLUCOPHAGE XR) 500 mg 24 hr tablet TAKE 2 TABLETS BY MOUTH TWICE A DAY Pseudoephedrine-guaiFENesin (MUCINEX D MAXIMUM STRENGTH) 120- 1,200 mg Tb12 Take 1 tablet by mouth twice daily. estradiol (ESTRACE) 0.01 % (0.1 mg/gram) vaginal cream Apply pea-sized amount to perineum and 1 applicator vaginally Mon, Wed, Fri for atrophic vaginitis. COMPOUNDED PRESCRIPTION Please fit for BiPAP mask. COMPOUNDED PRESCRIPTION OCD Titration for portable oxygen concentrator Oxygen Flow Rate between 2-6 liters. To keep oxygen saturation at or above 92%. capsaicin (ZOSTRIX-HP) 0.075 % topical cream Apply 1 application to affected area four times daily. ULTICARE PEN NEEDLE 31 gauge x 5/16 ndle USE DIRECTED. TO INJECT INSULINS diltiazem CD (CARDIZEM CD, CARTIA XT) 180 mg 24 hr capsule TAKE 1 CAPSULE BY MOUTH EVERY MORNING nitroglycerin sublingual (NITROQUICK) 0.4 mg SL tablet DISSOLVE 1 TAB UNDER THE TONGUE NEEDED FOR CHEST PAIN EVERY 5 MINUTES UP TO 3 TIMES. IF NO RELIEF CALL 911. glucose 4 gram chewable tablet Take 4 tablets by mouth as needed for Low Blood Sugar. OXYGEN, HOME THERAPY, Inhale 3 L/min as instructed as directed. fluticasone (FLONASE) 50 mcg/actuation nasal spray Use 2 Sprays in each nostril once daily. COMPOUNDED PRESCRIPTION Evaluation for diabetic shoes and inserts Dx: E11.65, Z79.4 Incontinence Pad, Liner, Disp pads 1 Device as needed (urinary incontinence). Prevail incontinence pads. Dx: urinary incontinence. Size: small Blood Pressure Cuff - Home Use BLOOD PRESSURE CUFF FOR HOME USE. DX: LABILE BLOOD PRESSURE Blood-Glucose Meter (VersionOneTOUCH ULTRA2) monitoring kit UAD to test blood sugar Alcohol Swabs padm UAD to clean skin before testing blood sugar and injecting insulins. No current facility-administered medications on file prior to visit. 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 Social History Main Topics Smoking status: Former Smoker Packs/day: 1.00 Years: 28.00 Types: Cigarettes Start date: 1978 Quit date: 09/22/2005 Smokeless tobacco: Never Used Comment: Father smoked in childhood. 2nd spouse smoked in home. Alcohol use: No Drug use: No Sexual activity: No Social History Narrative 1 year in current home. No basement, 1 parakeet. Room A/C. Electric baseboard heat. Review of Symptoms REVIEW OF SYSTEMS GENERAL: No weight loss, malaise or fevers RESPIRATORY: See HPI CARDIOVASCULAR: Negative for chest pain, leg swelling, hypertension, CHF or palpitations GI: No nausea, vomiting, or diarrhea SKIN: Negative for lesions, rash, and itching EXAM: BP 112/78 Pulse 68 Temp 36.6 ?C (97.8 ?F) (Tympanic) SpO2 93% General Appearance: Well appearing, alert, in no acute distress, well-hydrated, well nourished.. Skin: Skin color, texture, turgor normal, no suspicious rashes or lesions. Lungs: lungs clear to auscultation. No wheezing, rhonchi, rales. Heart: RRR without murmur, gallop, or rubs. No ectopy. Abdomen: Normal abdominal exam, Abdomen soft, non-tender. Bowel sounds normal. No masses, organomegaly. Extremities: No deformities, edema, skin discoloration, clubbing or cyanosis. Good capillary refill. . Health Maintenance List DILATED RETINAL EXAM due on 07/03/2018 BACILIO/ARB MED PRESCRIBED due on 10/23/2018 STATIN MED ADHERENCE due on 10/23/2018 DIABETES MED ADHERENCE due on 10/23/2018 HBA1C due on 11/19/2018 MAMMOGRAM due on 12/11/2018 LDL CHOLESTEROL due on 12/11/2018 URINE ALBUMIN:CREATININE RATIO due on 05/20/2019 DIABETIC FOOT EXAM due on 05/20/2019 SERUM CREATININE due on 05/20/2019 ANNUAL PCP TEAM CHRONIC DISEASE VISIT due on 08/17/2019 BP CONTROLLED (<130/80) due on 08/17/2019 COLORECTAL CANCER SCREENING,SEE MODIFIER due on 11/30/2019 PAP EVERY 5 YEARS due on 11/27/2021 HPV EVERY 5 YEARS due on 11/27/2021 DTAP,TDAP,TD(2 - Td) due on 10/02/2026 ONE PNEUMOVAX PRIOR TO AGE 65 Completed INFLUENZA Completed HEPATITIS C SCREENING Completed ASSESSMENT/PLAN: 1. Community acquired pneumonia, unspecified laterality - ICD9: 486, ICD10: J18.9 (primary diagnosis) Symptoms improved. Obtain repeat CXR to confirm resolution. - XR CHEST 2V FRONTAL/LAT 2. Altered mental status, unspecified altered mental status type - ICD9: 780.97, ICD10: R41.82 10/24 #1. Resolved. F/u 10/22 as scheduled for routine follow up. 3. TITI (acute kidney injury) (HCC) - ICD9: 584.9, ICD10: N17.9 Repeat CMP. Push PO fluids, low sodium diet, avoidance of NSAIds. - COMP METABOLIC PANEL 4. Vaginal yeast infection - ICD9: 112.1, ICD10: B37.3 - FLUCONAZOLE 100 MG TABLET 5. Hospital discharge follow-up - ICD9: V67.59, ICD10: Z09 Symptoms improving. See above for recommendations., 6. Type 2 diabetes mellitus with diabetic neuropathy, with long-term current use of insulin (HCC) - ICD9: 250.60, 357.2, V58.67, ICD10: E11.40, Z79.4 Obtain A1C prior to upcoming appointment. - HGB A1C I spent 40 minutes in the visit, with more than 50% of the total [id number] time of the visit in counseling / coordination of care. Nanda Oliveira MD CNOV Observed: 09/25/2018 Status: COMPLETED Source: [place] 4:20 PM [facility] REPOSITORY [facility] TAMIA PANDA ([id number]) 1955 F Date Time Provider Department 09/25/18 4:20 PM NANDA OLIVEIRA) KENDRICKWS During your visit today, we recorded the following information about you: Temperature Pulse Blood pressure 97.8 degrees 68/minute 112/78 Nanda Oliveira MD 09/27/2018 5:12 PM Signed Chief Complaint Patient presents with: Hospital Follow Up: tcm - also - ongoing back and hip pain HPI Tamia Panda is a 63 year old female who presents here today for Hospital Discharge Follow up. Patient admitted to [facility] from 09/09 to 09/11 with altered mental status found to be 2/2 community acquired pneumonia and TITI. TCM note in bold below. TRANSITION CARE MANAGEMENT (TCM) INITIAL CONTACT ? ? Provider Action/FYI: ? Pt didn't get script for ATB and didn't know she was to be taking ATB Verbal order given by PCP for Augmentin 875 mg Q12H x 7 days Script called to Tejal at [facility] Tejal called back and stated prescription was sent to [facility] and was picked up on 09/11 [facility] tried to call pt, line busy ? Initial contact with patient post discharge, spoke to patient. Patient identified by name and . ? TRANSITION CARE MANAGEMENT: Date of Outreach: 09/14/2018 Outreach Attempt 1: Contact Made Date of Discharge 09/11/2018 Some recent data might be hidden ? SUMMARY: -Pt discharged from [facility] on 09/11. -Follow up appointment on 09/18 with Cindi Oconnell NP. -Medication review done No. -Admitted for: 1. Acute metabolic encephalopathy secondary to acute community-acquired pneumonia and acute kidney injury 2. Acute community-acquired pneumonia 3. Acute kidney injury, resolved 4. Paroxysmal atrial fibrillation 5. Hypothyroidism 8. Type 2 diabetes mellitus 7. Anxiety/depression 8. CAD 9. Chronic COPD with chronic hypoxic respiratory failure ? CONCERNS: Pt did not get prescription for Augmentin Reports frequent productive cough expectorating urban mucous ? NEW MEDICATIONS: Augmentin 875 mg PO Q12H #14 ? MEDS HELD/DISCONTINUED: none ? BRIEF HOSPITAL COURSE: Copied from [facility] ? The patient is a 63 year old F admitted 09/09/2018 due to cough and generalized malaise. Patient was noted to have lethargy and confusion on admission. ? 1. Acute metabolic encephalopathy secondary to acute community-acquired pneumonia and TITI-chest x-ray admission with right upper lobe infiltrate. Brain CT unremarkable. Patient received IV Rocephin and IV azithromycin. Mental status improved. Respiratory panel negative. Patient will be discharged on Augmentin 875 p.o. twice daily for 7 days at discharge. Follow-up with primary care physician in 1 week. Chest X-Ray 09/09/18 17:15 IMPRESSION: Possible right upper lobe infiltrate medially. Cardiomegaly. Patient states that she finished her Augmentin as prescribed and has not had further confusion. Still complains of moist cough for the last 2 months without productive sputum, seems to be slowly improving. Denies wheezing, SOB, fever, Vomiting. Complaining today of vaginal itching and irritation. Unable to tell if she has had any vaginal discharge. Treating Vagisil pads which helps with the itching. Patient living out on [address] with sons Avery and Kamari since discharge. Feels safe living with sons. Discussed concerns with them taking advantage of her. Home health out to house to help with bathing, preparing meals, laundry, cleaning around the house. Home health will not be able to help with these things if sons are there, patient has signed contract that sons would not be there when home health is in home. Past medical history, appointments, medications, allergies reviewed. Previous Medical History PAST MEDICAL HISTORY Diagnosis Date - Acute chronic obstructive pulmonary disease with respiratory failure ([facility]) - AF (paroxysmal atrial fibrillation) ([facility]) - Anxiety - Arthritis Seeing Dr Elliott - Cervical cancer ([facility]) hysterectomy - CHF (congestive heart failure) ([facility]) - Chronic back pain Seeing Dr. Wallace - Constipation - COPD (chronic obstructive pulmonary disease) ([facility]) [facility] for BiPAP and [facility] for O2. - Coronary atherosclerosis of port lions coronary artery Previously seeing Dr. Sosa - DDD (degenerative disc disease), lumbar - DM type 2 (diabetes mellitus, type 2) ([facility]) Seeing Dr. Foley for podiatry - DVT (deep venous thrombosis) ([facility]) Post op INA, BSO. - Dysphagia Seeing Dr. Beaulieu - Emphysema lung ([facility]) - Essential hypertension - Functional dyspepsia - Gastroparesis 2017 mild - GERD without esophagitis - Headache - History of colon polyps 11/28/2016 - Hyperlipidemia - Hypothyroidism - Incontinence Seeing Dr. Chapman - Lung nodule 02/[address] in 3 months - Morbid obesity (HCC) - Muscle weakness - Nausea - PARESH on CPAP [facility] for BiPAP and [facility] for O[facility]. - PE (pulmonary thromboembolism) (HCC) Post op INA/BSO. - Pneumonia - RLS (restless legs syndrome) - Shortness of breath - Sleep apnea using oxygen currently, not on CPAP - Unsteadiness on feet - Wheezing Previous Surgical History PAST SURGICAL HISTORY Procedure Laterality Date - CHOLECYSTECTOMY - COLONOS W/REM POLYP SNARE 11/28/2016 Repeat 2019 - COLONOSCOPY Has had multiple in the past with polyps, cannot remember dates - EGD W/O BRSH SPECIMEN W/BX 11/28/2016 - HERNIA REPAIR HX multiple - KNEE SURGERY HX Left x3 for torn cartilage - NASAL SURGERY PROCEDURE sinus - TOTAL ABDOM HYSTERECTOMY 1987 Cervical cancer - TUBAL LIGATION HX - WRIST SURGERY HX Right ganglion cyst removal x2 Family History FAMILY HISTORY Problem Relation Age of Onset - Coronary Artery Disease Mother - Coronary Artery Disease Father - Asthma Brother - Coronary Artery Disease Brother - Diabetes Sister - Hypertension Sister - Diabetes Sister - Heart Sister - Allergies Sister - Asthma Sister - Allergies Sister - Emphysema Sister Early stages - COPD Paternal Uncle Patient Allergies ALLERGIES Allergen Reactions - Adhesive Tape (Adrienne* Intolerance Surgical tape leaves rash Irritates skin badly and blisters along with medical tape - Cats Other: See Comments Congested and itchy, difficulty breathing - Dogs Other: See Comments Congestion, sneezing, and difficulty breathing - Orphenadrine Unknown - Capsaicin Itching - Ciprofloxacin Other: See Comments Red, hot, itchy rash - Keflex [Cephalexin] Hives Negative skin testing and successful completion of an oral amoxicillin challenge was completed on 03/02/2018. Cephalexin shares an almost identical R1 side chain to amoxicillin; therefore, it is unlikely that she would be at elevated risk for developing an IgE-mediated reaction (allergic/anaphylactic). If she should need this medication in the future, I would recommend giving the first dose in a supervised medical setting. If no reaction after 30 minutes, proceed with regular dosing. - Niacin Unknown Pt states its niacin its niaspan - Reglan [Metoclopram* Other: See Comments Unable to sleep - Xanthines Unknown - Zofran [Ondansetron* Itching Current Medications Current Outpatient Prescriptions on File Prior to Visit: ascorbic acid, vitamin C, (VITAMIN C) 500 mg tablet TAKE 1 TABLET BY MOUTH DAILY Ferrous Gluconate (FERGON) 324 mg (38 mg iron) tablet TAKE 1 TABLET BY MOUTH DAILY WITH BREAKFAST docusate sodium (STOOL SOFTENER) 100 mg capsule Take 1 capsule by mouth once daily. senna (CLAUDIA-KYLE) 8.6 mg tab Take 1 tablet by mouth twice daily. aspirin, enteric coated (ASPIRIN, ENTERIC COATED) 81 mg EC tablet Take 1 tablet by mouth every morning. insulin glargine (LANTUS SOLOSTAR U-100 INSULIN) 100 unit/mL (3 mL) inpn Inject 40 units subcutaneously twice daily ONETOUCH ULTRA BLUE TEST STRIP test strip USE DIRECTED TO CHECK BLOOD SUGAR 4-5 TIMES DAILY ONETOUCH DELICA LANCETS 30 gauge misc USE TO CHECK BLOOD SUGAR 4-5 TIMES DALIY isosorbide mononitrate ER (IMDUR) 60 mg 24 hr tablet TAKE 1 AND 1/2 TABLETS BY MOUTH EVERY MORNING glucose 4 gram chewable tablet TAKE 4 TABLETS BY MOUTH NEEDED FOR LOW BLOOD SUGAR. busPIRone HCl 7.5 mg tablet TAKE 1 TABLET BY MOUTH TWICE A DAY DULoxetine (CYMBALTA) 60 mg capsule TAKE 1 CAPSULE BY MOUTH DAILY metoprolol tartrate, short acting, (LOPRESSOR) 100 mg tablet TAKE 1 TABLET BY MOUTH TWICE A DAY omeprazole (PRILOSEC) 20 mg capsule TAKE 1 CAPSULE BY MOUTH EVERY MORNING atorvastatin (LIPITOR) 40 mg tablet TAKE 1 TABLET BY MOUTH DAILY levothyroxine (SYNTHROID) 100 mcg tablet TAKE 1 TABLET BY MOUTH EVERY MORNING furosemide (LASIX) 40 mg tablet Take 1 tablet by mouth twice daily. ibuprofen (MOTRIN IB) 200 mg tablet Take 200 mg by mouth every 6 hours as needed. ELIQUIS 2.5 mg tab tab(s) TAKE 1 TABLET BY MOUTH TWICE A DAY promethazine (PHENERGAN) 25 mg tablet Take 1 tablet by mouth every 6 hours as needed. albuterol HFA (PROAIR HFA) 90 mcg/actuation inhaler Inhale 2 Puffs as instructed every 4 hours as needed for Wheezing/Shortness of Breath. LYRICA 100 mg capsule TAKE 1 CAPSULE BY MOUTH THREE TIMES A DAY BIPAP Bilevel PAP 16/12 cmH2O with 2 LPM oxygen bleed in, mask, tubing, filters, heated humidity, lifetime supplies. Dx: G47.33, G47.39. insulin lispro (HUMALOG KWIKPEN INSULIN) 200 unit/mL (3 mL) injection Inject subcutaneously 14 units with breakfast, 22 units with lunch, and 24 units with dinner metFORMIN ER (GLUCOPHAGE XR) 500 mg 24 hr tablet TAKE 2 TABLETS BY MOUTH TWICE A DAY Pseudoephedrine-guaiFENesin (MUCINEX D MAXIMUM STRENGTH) 120- 1,200 mg Tb12 Take 1 tablet by mouth twice daily. estradiol (ESTRACE) 0.01 % (0.1 mg/gram) vaginal cream Apply pea-sized amount to perineum and 1 applicator vaginally Mon, Wed, Fri for atrophic vaginitis. COMPOUNDED PRESCRIPTION Please fit for BiPAP mask. COMPOUNDED PRESCRIPTION OCD Titration for portable oxygen concentrator Oxygen Flow Rate between 2-6 liters. To keep oxygen saturation at or above 92%. capsaicin (ZOSTRIX-HP) 0.075 % topical cream Apply 1 application to affected area four times daily. ULTICARE PEN NEEDLE 31 gauge x 5/16 ndle USE DIRECTED. TO INJECT INSULINS diltiazem CD (CARDIZEM CD, CARTIA XT) 180 mg 24 hr capsule TAKE 1 CAPSULE BY MOUTH EVERY MORNING nitroglycerin sublingual (NITROQUICK) 0.4 mg SL tablet DISSOLVE 1 TAB UNDER THE TONGUE NEEDED FOR CHEST PAIN EVERY 5 MINUTES UP TO 3 TIMES. IF NO RELIEF CALL 911. glucose 4 gram chewable tablet Take 4 tablets by mouth as needed for Low Blood Sugar. OXYGEN, HOME THERAPY, Inhale 3 L/min as instructed as directed. fluticasone (FLONASE) 50 mcg/actuation nasal spray Use 2 Sprays in each nostril once daily. COMPOUNDED PRESCRIPTION Evaluation for diabetic shoes and inserts Dx: E11.65, Z79.4 Incontinence Pad, Liner, Disp pads 1 Device as needed (urinary incontinence). Prevail incontinence pads. Dx: urinary incontinence. Size: small Blood Pressure Cuff - Home Use BLOOD PRESSURE CUFF FOR HOME USE. DX: LABILE BLOOD PRESSURE Blood-Glucose Meter (ONETOUCH ULTRA2) monitoring kit UAD to test blood sugar Alcohol Swabs padm UAD to clean skin before testing blood sugar and injecting insulins. No current facility-administered medications on file prior to visit. 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 Social History Main Topics Smoking status: Former Smoker Packs/day: 1.00 Years: 28.00 Types: Cigarettes Start date: 1978 Quit date: 09/22/2005 Smokeless tobacco: Never Used Comment: Father smoked in childhood. 2nd spouse smoked in home. Alcohol use: No Drug use: No Sexual activity: No Social History Narrative 1 year in current home. No basement, 1 parakeet. Room A/C. Electric baseboard heat. Review of Symptoms REVIEW OF SYSTEMS GENERAL: No weight loss, malaise or fevers RESPIRATORY: See HPI CARDIOVASCULAR: Negative for chest pain, leg swelling, hypertension, CHF or palpitations GI: No nausea, vomiting, or diarrhea SKIN: Negative for lesions, rash, and itching EXAM: BP 112/78 Pulse 68 Temp 36.6 ?C (97.8 ?F) (Tympanic) SpO2 93% General Appearance: Well appearing, alert, in no acute distress, well-hydrated, well nourished.. Skin: Skin color, texture, turgor normal, no suspicious rashes or lesions. Lungs: lungs clear to auscultation. No wheezing, rhonchi, rales. Heart: RRR without murmur, gallop, or rubs. No ectopy. Abdomen: Normal abdominal exam, Abdomen soft, non-tender. Bowel sounds normal. No masses, organomegaly. Extremities: No deformities, edema, skin discoloration, clubbing or cyanosis. Good capillary refill. . Health Maintenance List DILATED RETINAL EXAM due on 07/03/2018 BACILIO/ARB MED PRESCRIBED due on 10/23/2018 STATIN MED ADHERENCE due on 10/23/2018 DIABETES MED ADHERENCE due on 10/23/2018 HBA1C due on 11/19/2018 MAMMOGRAM due on 12/11/2018 LDL CHOLESTEROL due on 12/11/2018 URINE ALBUMIN:CREATININE RATIO due on 05/20/2019 DIABETIC FOOT EXAM due on 05/20/2019 SERUM CREATININE due on 05/20/2019 ANNUAL PCP TEAM CHRONIC DISEASE VISIT due on 08/17/2019 BP CONTROLLED (<130/80) due on 08/17/2019 COLORECTAL CANCER SCREENING,SEE MODIFIER due on 11/30/2019 PAP EVERY 5 YEARS due on 11/27/2021 HPV EVERY 5 YEARS due on 11/27/2021 DTAP,TDAP,TD(2 - Td) due on 10/02/2026 ONE PNEUMOVAX PRIOR TO AGE 65 Completed INFLUENZA Completed HEPATITIS C SCREENING Completed ASSESSMENT/PLAN: 1. Community acquired pneumonia, unspecified laterality - ICD9: 486, ICD10: J18.9 (primary diagnosis) Symptoms improved. Obtain repeat CXR to confirm resolution. - XR CHEST 2V FRONTAL/LAT 2. Altered mental status, unspecified altered mental status type - ICD9: 780.97, ICD10: R41.82 2/ #1. Resolved. F/u 10/22 as scheduled for routine follow up. 3. TITI (acute kidney injury) (HCC) - ICD9: 584.9, ICD10: N17.9 Repeat CMP. Push PO fluids, low sodium diet, avoidance of NSAIds. - COMP METABOLIC PANEL 4. Vaginal yeast infection - ICD9: 112.1, ICD10: B37.3 - FLUCONAZOLE 100 MG TABLET 5. Hospital discharge follow-up - ICD9: V67.59, ICD10: Z09 Symptoms improving. See above for recommendations., 6. Type 2 diabetes mellitus with diabetic neuropathy, with long-term current use of insulin (HCC) - ICD9: 250.60, 357.2, V58.67, ICD10: E11.40, Z79.4 Obtain A1C prior to upcoming appointment. - HGB A1C I spent 40 minutes in the visit, with more than 50% of the total jebc-fa-vssz time of the visit in counseling / coordination of care. Nadna Oliveira MD Referring Provider: SELF [200] Allergies As of Date: 09/25/2018 Noted Allergy Reaction ADHESIVE TAPE (ROSINS) 04/04/2015 5 - Intolerance Comments: Surgical tape leaves rash Irritates skin badly and blisters along with medical tape CATS 04/10/2016 14 - Other: See Comments Comments: Congested and itchy, difficulty breathing DOGS 04/10/2016 14 - Other: See Comments Comments: Congestion, sneezing, and difficulty breathing ORPHENADRINE 04/10/2016 16 - Unknown CAPSAICIN 03/02/2018 9 - Itching CIPROFLOXACIN 12/11/2011 14 - Other: See Comments Comments: Red, hot, itchy rash KEFLEX (CEPHALEXIN) 07/10/2016 4 - Hives Comments: Negative skin testing and successful completion of an oral amoxicillin challenge was completed on 03/02/2018. Cephalexin shares an almost identical R1 side chain to amoxicillin; therefore, it is unlikely that she would be at elevated risk for developing an IgE-mediated reaction (allergic/anaphylactic). If she should need this medication in the future, I would recommend giving the first dose in a supervised medical setting. If no reaction after 30 minutes, proceed with regular dosing. NIACIN 04/04/2015 16 - Unknown Comments: Pt states its niacin its niaspan REGLAN (METOCLOPRAMIDE HCL) 03/04/2017 14 - Other: See Comments Comments: Unable to sleep XANTHINES 10/18/2004 16 - Unknown ZOFRAN (ONDANSETRON HCL (PF)) 02/03/2018 9 - Itching Date Reviewed: 09/25/2018 Reviewed by: Clayton Serna Ma - Fully Assessed Reason for Visit: Hospital Follow Up [177] Cmt: tcm - also - ongoing back and hip pain - to be taking Lyrica? was DC at [facility] - patient still recieveing in pill packs Reason For Visit History Recorded Primary Visit Diagnosis:Community acquired pneumonia, unspecified laterality [J18.9] Other Visit Diagnoses:Altered mental status, unspecified altered mental status type [R41.82] TITI (acute kidney injury) (HCC) [N17.9] Vaginal yeast infection [B37.3] Hospital discharge follow-up [Z09] Type 2 diabetes mellitus with diabetic neuropathy, with long-term current use of insulin ([facility]) [E11.40, Z79.4] Order(s):XR CHEST 2V FRONTAL/LAT [0912395] Order #: [id number] FUTURE fluconazole (DIFLUCAN) 100 mg tabletTake 1 tablet by mouth every 72 hours for 3 doses.Disp: 3 tabletRfl: 0 COMP METABOLIC PANEL [SQCMP] Order #: [id number] FUTURE HGB A1C [AIRAX7M] Order #: [id number] FUTURE Prescriptions as of 09/25/2018 Sig: ASCORBIC ACID (VITAMIN C) 500* TAKE 1 TABLET BY MOUTH DAILY FERROUS GLUCONATE 324 MG (38 * TAKE 1 TABLET BY MOUTH DAILY * DOCUSATE SODIUM 100 MG CAPSULE Take 1 capsule by mouth once * SENNOSIDES 8.6 MG TABLET Take 1 tablet by mouth twice * ASPIRIN 81 MG TABLET,DELAYED * Take 1 tablet by mouth every * FLUCONAZOLE 100 MG TABLET Take 1 tablet by mouth every * INSULIN GLARGINE (U-100) 100 * Inject 40 units subcutaneousl* ONETOUCH ULTRA BLUE TEST STRIP USE DIRECTED TO CHECK BLOO* ONETOUCH DELICA LANCETS 30 GA* USE TO CHECK BLOOD SUGAR 4-5 * ISOSORBIDE MONONITRATE ER 60 * TAKE 1 AND 1/2 TABLETS BY MOUTH* GLUCOSE 4 GRAM CHEWABLE TABLET TAKE 4 TABLETS BY MOUTH NE* BUSPIRONE 7.5 MG TABLET TAKE 1 TABLET BY MOUTH TWICE * DULOXETINE 60 MG CAPSULE,MARIA EUGENIA* TAKE 1 CAPSULE BY MOUTH DAILY METOPROLOL TARTRATE 100 MG TA* TAKE 1 TABLET BY MOUTH TWICE * OMEPRAZOLE 20 MG CAPSULE,MARIA EUGENIA* TAKE 1 CAPSULE BY MOUTH EVERY* ATORVASTATIN 40 MG TABLET TAKE 1 TABLET BY MOUTH DAILY LEVOTHYROXINE 100 MCG TABLET TAKE 1 TABLET BY MOUTH EVERY * FUROSEMIDE 40 MG TABLET Take 1 tablet by mouth twice * IBUPROFEN 200 MG TABLET Take 200 mg by mouth every 6 * ELIQUIS 2.5 MG TABLET TAKE 1 TABLET BY MOUTH TWICE * PROMETHAZINE 25 MG TABLET Take 1 tablet by mouth every * ALBUTEROL SULFATE HFA 90 MCG/* Inhale 2 Puffs as instructed * BIPAP Bilevel PAP 16/12 cmH2O with * INSULIN LISPRO (U-200) 200 UN* Inject subcutaneously 14 unit* METFORMIN ER 500 MG TABLET,EX* TAKE 2 TABLETS BY MOUTH TWICE* PSEUDOEPHEDRINE-GUAIFENESIN E* Take 1 tablet by mouth twice * ESTRADIOL 0.01% (0.1 MG/GRAM)* Apply pea-sized amount to per* COMPOUNDED PRESCRIPTION Please fit for BiPAP mask. COMPOUNDED PRESCRIPTION OCD Titration for portable ox* CAPSAICIN 0.075 % TOPICAL CRE* Apply 1 application to affect* ULTICARE PEN NEEDLE 31 GAUGE * USE DIRECTED. TO INJECT IN* DILTIAZEM SR 180 MG 24 HR CAP TAKE 1 CAPSULE BY MOUTH EVERY* NITROGLYCERIN 0.4 MG SUBLINGU* DISSOLVE 1 TAB UNDER THE TONG* GLUCOSE 4 GRAM CHEWABLE TABLET Take 4 tablets by mouth as ne* OXYGEN (HOME THERAPY) Inhale 3 L/min as instructed * FLUTICASONE 50 MCG/ACTUATION * Use 2 Sprays in each nostril * COMPOUNDED PRESCRIPTION Evaluation for diabetic shoes* INCONTINENCE PAD, LINER, DISP* 1 Device as needed (urinary i* COMPOUNDED PRESCRIPTION BLOOD PRESSURE CUFF FOR HOME * BLOOD-GLUCOSE METER KIT UAD to test blood sugar ALCOHOL SWABS UAD to clean skin before test* Problem List As Of Date 09/25/2018 Noted Resolved SUBJECTIVE TINNITUS [H93.19] INVALID FOR* PARESH treated with BiPAP [G47.33] INVALID FOR* Hyperlipidemia [E78.5] INVALID FOR* Coronary disease [I25.10] INVALID FOR* Diabetes mellitus, type II ([facility]) [E11.9] INVALID FOR* Morbid obesity ([facility]) [E66.01] Hypothyroidism [E03.9] Anxiety [F41.9] Sleep apnea [G47.30] 02/14/2017 Essential hypertension [I10] Coronary artery disease of [place] artery of stoney* AF (paroxysmal atrial fibrillation) ([facility]) [I48.* COPD (chronic obstructive pulmonary disease) (H* GERD without esophagitis [K21.9] Dysphagia [R13.10] Constipation [K59.00] DM type 2 (diabetes mellitus, type 2) ([facility]) [E1* 02/14/2017 Shortness of breath [R06.02] 02/14/2017 Arthritis [M19.90] More... CHF (congestive heart failure) ([facility]) [I50.9] BPPV (benign paroxysmal positional vertigo) [H8*INVALID FOR* RLS (restless legs syndrome) [G25.81] INVALID FOR* Iron deficiency concern: RE RLS [E61.1] INVALID FOR* Tubular adenoma [D36.9] INVALID FOR* Incontinence [R32] More... Gastroparesis [K31.84] INVALID FOR* Pre-op testing [Z01.818] INVALID FOR* More... Hypercapnia [R06.89] INVALID FOR* S/P coronary artery stent placement [Z95.5] INVALID FOR* Stage 3 chronic kidney disease [N18.3] INVALID FOR* Depression [F32.9] INVALID FOR* Obesity, Class II, BMI 35-39.9 [E66.9] INVALID FOR* Prescriptions ordered this encounter Disp Refills Start End FLUCONAZOLE 100 MG TABLET 3 ta* 0 09/25/2018 10/02/2018 Route: ORAL Sig: Take 1 tablet by mouth every 72 hours for 3 doses. Medications Discontinued During This Encounter LYRICA 100 mg capsule 84 c* 5 05/06/2018 09/25/2018 Class: Print RX Cmt: Maximum Refills Reached Sig: TAKE 1 CAPSULE BY MOUTH THREE TIMES A DAY Disc: Reason for discontinue is not on file. Disposition: Return if symptoms worsen or fail to improve. Follow-up and Disposition History Recorded Encounter Status:Closed by NANDA OLIVEIRA MD on 09/27/18 MELCHOR Observed: 09/25/2018 Status: COMPLETED Source: RUSSELL 12:00 AM [facility] REPOSITORY Patient Outreach (FAMPWS) TAMIA PANDA ([id number]) 1955 F Date Time Provider Department 09/25/18 SAAD SILVESTRE (RN) [facility] During your visit today, we recorded the following information about you: Saad Silvestre RN 09/25/2018 5:37 PM Signed PRIMARY CARE COORDINATION IN OFFICE VISIT WITH PCP Patient has been identified by name and date of . PCP Assessment/Plan: Reviewed PCP plan with patient using Teach Back Discussed possible loss of BACKEND DEVELOPER if son's are at pt's home when BACKEND DEVELOPER visits. Discussed ramifications of losing home health, pt understands PCC Plan of Care: Patient goals: Pt will work on snacking less to get BS under control PCC Intervention: PCC will call Miryam to discontinue Lyrica order on 09/28 PCC will call pt next week for BS Next Office Visit: 10/22/2018 Plan For Next Call: One week Saad Silvestre RN September 25, 2018 Saad Silvestre RN 09/28/2018 9:13 AM Signed PRIMARY CARE COORDINATION FOLLOW-UP NOTE Provider Action/FYI FYI Patient identified by name and date of . YES Spoke to Mica Miner Summary: Informed pt's Lyrica is discontinued, please make note and remove from patient's pill packages, verbalized understanding. Cleaning Supervisor plan for next outreach: Will follow up one week Signature Saad Silvestre RN September 28, 2018 Allergies As of Date: 09/25/2018 Noted Allergy Reaction ADHESIVE TAPE (ROSINS) 04/04/2015 5 - Intolerance Comments: Surgical tape leaves rash Irritates skin badly and blisters along with medical tape CATS 04/10/2016 14 - Other: See Comments Comments: Congested and itchy, difficulty breathing DOGS 04/10/2016 14 - Other: See Comments Comments: Congestion, sneezing, and difficulty breathing ORPHENADRINE 04/10/2016 16 - Unknown CAPSAICIN 03/02/2018 9 - Itching CIPROFLOXACIN 12/11/2011 14 - Other: See Comments Comments: Red, hot, itchy rash KEFLEX (CEPHALEXIN) 07/10/2016 4 - Hives Comments: Negative skin testing and successful completion of an oral amoxicillin challenge was completed on 03/02/2018. Cephalexin shares an almost identical R1 side chain to amoxicillin; therefore, it is unlikely that she would be at elevated risk for developing an IgE-mediated reaction (allergic/anaphylactic). If she should need this medication in the future, I would recommend giving the first dose in a supervised medical setting. If no reaction after 30 minutes, proceed with regular dosing. NIACIN 04/04/2015 16 - Unknown Comments: Pt states its niacin its niaspan REGLAN (METOCLOPRAMIDE HCL) 03/04/2017 14 - Other: See Comments Comments: Unable to sleep XANTHINES 10/18/2004 16 - Unknown ZOFRAN (ONDANSETRON HCL (PF)) 02/03/2018 9 - Itching Date Reviewed: 09/25/2018 Reviewed by: Clayton Serna Ma - Fully Assessed Reason for Visit: Glove Cuffer-In Office Visit [6614] Prescriptions as of 09/25/2018 Sig: ASCORBIC ACID (VITAMIN C) 500* TAKE 1 TABLET BY MOUTH DAILY FERROUS GLUCONATE 324 MG (38 * TAKE 1 TABLET BY MOUTH DAILY * DOCUSATE SODIUM 100 MG CAPSULE Take 1 capsule by mouth once * SENNOSIDES 8.6 MG TABLET Take 1 tablet by mouth twice * ASPIRIN 81 MG TABLET,DELAYED * Take 1 tablet by mouth every * FLUCONAZOLE 100 MG TABLET Take 1 tablet by mouth every * INSULIN GLARGINE (U-100) 100 * Inject 40 units subcutaneousl* ONETOUCH ULTRA BLUE TEST STRIP USE DIRECTED TO CHECK BLOO* ONETOUCH DELICA LANCETS 30 GA* USE TO CHECK BLOOD SUGAR 4-5 * ISOSORBIDE MONONITRATE ER 60 * TAKE 1 AND 1/2 TABLETS BY MOUTH* GLUCOSE 4 GRAM CHEWABLE TABLET TAKE 4 TABLETS BY MOUTH NE* BUSPIRONE 7.5 MG TABLET TAKE 1 TABLET BY MOUTH TWICE * DULOXETINE 60 MG CAPSULE,MARIA EUGENIA* TAKE 1 CAPSULE BY MOUTH DAILY METOPROLOL TARTRATE 100 MG TA* TAKE 1 TABLET BY MOUTH TWICE * OMEPRAZOLE 20 MG CAPSULE,MARIA EUGENIA* TAKE 1 CAPSULE BY MOUTH EVERY* ATORVASTATIN 40 MG TABLET TAKE 1 TABLET BY MOUTH DAILY LEVOTHYROXINE 100 MCG TABLET TAKE 1 TABLET BY MOUTH EVERY * FUROSEMIDE 40 MG TABLET Take 1 tablet by mouth twice * IBUPROFEN 200 MG TABLET Take 200 mg by mouth every 6 * ELIQUIS 2.5 MG TABLET TAKE 1 TABLET BY MOUTH TWICE * PROMETHAZINE 25 MG TABLET Take 1 tablet by mouth every * ALBUTEROL SULFATE HFA 90 MCG/* Inhale 2 Puffs as instructed * BIPAP Bilevel PAP 16/12 cmH2O with * INSULIN LISPRO (U-200) 200 UN* Inject subcutaneously 14 unit* METFORMIN ER 500 MG TABLET,EX* TAKE 2 TABLETS BY MOUTH TWICE* PSEUDOEPHEDRINE-GUAIFENESIN E* Take 1 tablet by mouth twice * ESTRADIOL 0.01% (0.1 MG/GRAM)* Apply pea-sized amount to per* COMPOUNDED PRESCRIPTION Please fit for BiPAP mask. COMPOUNDED PRESCRIPTION OCD Titration for portable ox* CAPSAICIN 0.075 % TOPICAL CRE* Apply 1 application to affect* ULTICARE PEN NEEDLE 31 GAUGE * USE DIRECTED. TO INJECT IN* DILTIAZEM SR 180 MG 24 HR CAP TAKE 1 CAPSULE BY MOUTH EVERY* NITROGLYCERIN 0.4 MG SUBLINGU* DISSOLVE 1 TAB UNDER THE TONG* GLUCOSE 4 GRAM CHEWABLE TABLET Take 4 tablets by mouth as ne* OXYGEN (HOME THERAPY) Inhale 3 L/min as instructed * FLUTICASONE 50 MCG/ACTUATION * Use 2 Sprays in each nostril * COMPOUNDED PRESCRIPTION Evaluation for diabetic shoes* INCONTINENCE PAD, LINER, DISP* 1 Device as needed (urinary i* COMPOUNDED PRESCRIPTION BLOOD PRESSURE CUFF FOR HOME * BLOOD-GLUCOSE METER KIT UAD to test blood sugar ALCOHOL SWABS UAD to clean skin before test* Problem List As Of Date 09/25/2018 Noted Resolved SUBJECTIVE TINNITUS [H93.19] INVALID FOR* PARESH treated with BiPAP [G47.33] INVALID FOR* Hyperlipidemia [E78.5] INVALID FOR* Coronary disease [I25.10] INVALID FOR* Diabetes mellitus, type II (HCC) [E11.9] INVALID FOR* Morbid obesity ([facility]) [E66.01] Hypothyroidism [E03.9] Anxiety [F41.9] Sleep apnea [G47.30] 02/14/2017 Essential hypertension [I10] Coronary artery disease of [place] artery of stoney* AF (paroxysmal atrial fibrillation) ([facility]) [I48.* COPD (chronic obstructive pulmonary disease) (H* GERD without esophagitis [K21.9] Dysphagia [R13.10] Constipation [K59.00] DM type 2 (diabetes mellitus, type 2) ([facility]) [E1* 02/14/2017 Shortness of breath [R06.02] 02/14/2017 Arthritis [M19.90] More... CHF (congestive heart failure) ([facility]) [I50.9] BPPV (benign paroxysmal positional vertigo) [H8*INVALID FOR* RLS (restless legs syndrome) [G25.81] INVALID FOR* Iron deficiency concern: RE RLS [E61.1] INVALID FOR* Tubular adenoma [D36.9] INVALID FOR* Incontinence [R32] More... Gastroparesis [K31.84] INVALID FOR* Pre-op testing [Z01.818] INVALID FOR* More... Hypercapnia [R06.89] INVALID FOR* S/P coronary artery stent placement [Z95.5] INVALID FOR* Stage 3 chronic kidney disease [N18.3] INVALID FOR* Depression [F32.9] INVALID FOR* Obesity, Class II, BMI 35-39.9 [E66.9] INVALID FOR* Encounter Status:Closed by ASAD SILVESTRE on 09/25/18 OBSOLETE Observed: 09/23/2018 Status: COMPLETED Source: [place] 12:00 AM [facility] REPOSITORY Refill (GAMALIEL) TAMIA PANDA ([id number]) 1955 F Date Time Provider Department 09/23/18 SHAN MIDDLETON During your visit today, we recorded the following information about you: Chris Kareem MA 09/24/2018 9:49 AM Signed Physician: Emi Call from pharmacy requesting refill. Please E-Scribe Last OV: 05/06/18 with Emi Future OV: Not scheduled Pending Prescriptions Disp Refills ASCORBIC ACID (VITAMIN C) 500 MG TABLET 28 tablet Sig: TAKE 1 TABLET BY MOUTH DAILY SCOTT: Yes FERROUS GLUCONATE 324 MG (38 MG IRON) TABLET 28 tablet Sig: TAKE 1 TABLET BY MOUTH DAILY WITH BREAKFAST SCOTT: Yes Pharmacy Name: [facility] Chris Welchannel Hunter RN 09/24/2018 12:20 PM Signed CHAUNCEY 05/06/18 F/U Not scheduled, left msg for pt to call back Sleep Disorder Dx Impression: Obstructive sleep apnea - moderate to severe ? ? Other Conditioning Diagnoses: CHF DM2 CAD COPD PAF Morbid obesity ? Case Formulation / [place] (may include pt's hopes, fears, expectations, concerns): The new settings are indicated from [facility]; Time for a new DME locally ? Actions taken: Motivational Interviewing aspects taken Hearing ougt PDMP Aspect: na ? ? New order for bipap 06/09 with 2 liters. ? Plan: See how doing on new arrangement ? Follow up with YRIS Ba in 6 weeks. . ? MD Deysi Moore, MEDIA JOB TITLES.DATA INPUT CLERK 09/25/2018 11:22 AM Signed Iron and vitamin C refilled for 2 months. Need to check iron studies prior to further refills. Patient has not had iron level checked and needs to follow up with me or Emi ABRAHAM in office. Rosalino Hunter RN 10/09/2018 8:50 AM Signed Left second message for pt to call back. Allergies As of Date: 09/23/2018 Noted Allergy Reaction ADHESIVE TAPE (ROSINS) 04/04/2015 5 - Intolerance Comments: Surgical tape leaves rash Irritates skin badly and blisters along with medical tape CATS 04/10/2016 14 - Other: See Comments Comments: Congested and itchy, difficulty breathing DOGS 04/10/2016 14 - Other: See Comments Comments: Congestion, sneezing, and difficulty breathing ORPHENADRINE 04/10/2016 16 - Unknown CAPSAICIN 03/02/2018 9 - Itching CIPROFLOXACIN 12/11/2011 14 - Other: See Comments Comments: Red, hot, itchy rash KEFLEX (CEPHALEXIN) 07/10/2016 4 - Hives Comments: Negative skin testing and successful completion of an oral amoxicillin challenge was completed on 03/02/2018. Cephalexin shares an almost identical R1 side chain to amoxicillin; therefore, it is unlikely that she would be at elevated risk for developing an IgE-mediated reaction (allergic/anaphylactic). If she should need this medication in the future, I would recommend giving the first dose in a supervised medical setting. If no reaction after 30 minutes, proceed with regular dosing. NIACIN 04/04/2015 16 - Unknown Comments: Pt states its niacin its niaspan REGLAN (METOCLOPRAMIDE HCL) 03/04/2017 14 - Other: See Comments Comments: Unable to sleep XANTHINES 10/18/2004 16 - Unknown ZOFRAN (ONDANSETRON HCL (PF)) 02/03/2018 9 - Itching Date Reviewed: 08/17/2018 Reviewed by: Clayton Serna Ma - Fully Assessed Reason for Visit: Refill Request [94] Primary Visit Diagnosis:Iron deficiency [E61.1] Other Visit Diagnoses:RLS (restless legs syndrome) [G25.81] Vitamin D deficiency [E55.9] Comment:concern for Order(s):ascorbic acid, vitamin C, (VITAMIN C) 500 mg tabletTAKE 1 TABLET BY MOUTH DAILYDisp: 30 tabletRfl: 1 Ferrous Gluconate (FERGON) 324 mg (38 mg iron) tabletTAKE 1 TABLET BY MOUTH DAILY WITH BREAKFASTDisp: 30 tabletRfl: 1 IRON + TIBC [SQIRON] Order #: [id number] FUTURE FERRITIN BLD [SQFERR] Order #: [id number] FUTURE VITAMIN D 25 HYDROXY [SQVITD] Order #: [id number] FUTURE Prescriptions as of 09/23/2018 Sig: ASCORBIC ACID (VITAMIN C) 500* TAKE 1 TABLET BY MOUTH DAILY FERROUS GLUCONATE 324 MG (38 * TAKE 1 TABLET BY MOUTH DAILY * ONETOUCH ULTRA BLUE TEST STRIP USE DIRECTED TO CHECK BLOO* ONETOUCH DELICA LANCETS 30 GA* USE TO CHECK BLOOD SUGAR 4-5 * ISOSORBIDE MONONITRATE ER 60 * TAKE 1 AND 1/2 TABLETS BY MOUTH* GLUCOSE 4 GRAM CHEWABLE TABLET TAKE 4 TABLETS BY MOUTH NE* BUSPIRONE 7.5 MG TABLET TAKE 1 TABLET BY MOUTH TWICE * DULOXETINE 60 MG CAPSULE,MARIA EUGENIA* TAKE 1 CAPSULE BY MOUTH DAILY METOPROLOL TARTRATE 100 MG TA* TAKE 1 TABLET BY MOUTH TWICE * OMEPRAZOLE 20 MG CAPSULE,MARIA EUGENIA* TAKE 1 CAPSULE BY MOUTH EVERY* ATORVASTATIN 40 MG TABLET TAKE 1 TABLET BY MOUTH DAILY LEVOTHYROXINE 100 MCG TABLET TAKE 1 TABLET BY MOUTH EVERY * FUROSEMIDE 40 MG TABLET Take 1 tablet by mouth twice * IBUPROFEN 200 MG TABLET Take 200 mg by mouth every 6 * X LANTUS SOLOSTAR U-100 INSULIN* INJECT 56 UNITS SUBCUTANEOUSL* ELIQUIS 2.5 MG TABLET TAKE 1 TABLET BY MOUTH TWICE * X ASPIRIN 81 MG TABLET,DELAYED * TAKE 1 TABLET BY MOUTH EVERY * X CLAUDIA-KYLE 8.6 MG TABLET TAKE 1 TABLET BY MOUTH TWICE * X STOOL SOFTENER 100 MG CAPSULE TAKE 1 CAPSULE BY MOUTH DAILY PROMETHAZINE 25 MG TABLET Take 1 tablet by mouth every * X INSULIN GLARGINE (U-100) 100 * Inject 36 units subcutaneousl* ALBUTEROL SULFATE HFA 90 MCG/* Inhale 2 Puffs as instructed * BIPAP Bilevel PAP 16/12 cmH2O with * X LYRICA 100 MG CAPSULE TAKE 1 CAPSULE BY MOUTH THREE* INSULIN LISPRO (U-200) 200 UN* Inject subcutaneously 14 unit* METFORMIN ER 500 MG TABLET,EX* TAKE 2 TABLETS BY MOUTH TWICE* PSEUDOEPHEDRINE-GUAIFENESIN E* Take 1 tablet by mouth twice * ESTRADIOL 0.01% (0.1 MG/GRAM)* Apply pea-sized amount to per* COMPOUNDED PRESCRIPTION Please fit for BiPAP mask. COMPOUNDED PRESCRIPTION OCD Titration for portable ox* CAPSAICIN 0.075 % TOPICAL CRE* Apply 1 application to affect* ULTICARE PEN NEEDLE 31 GAUGE * USE DIRECTED. TO INJECT IN* DILTIAZEM SR 180 MG 24 HR CAP TAKE 1 CAPSULE BY MOUTH EVERY* X NITROGLYCERIN 0.4 MG SUBLINGU* DISSOLVE 1 TAB UNDER THE TONG* GLUCOSE 4 GRAM CHEWABLE TABLET Take 4 tablets by mouth as ne* OXYGEN (HOME THERAPY) Inhale 3 L/min as instructed * FLUTICASONE 50 MCG/ACTUATION * Use 2 Sprays in each nostril * COMPOUNDED PRESCRIPTION Evaluation for diabetic shoes* INCONTINENCE PAD, LINER, DISP* 1 Device as needed (urinary i* COMPOUNDED PRESCRIPTION BLOOD PRESSURE CUFF FOR HOME * BLOOD-GLUCOSE METER KIT UAD to test blood sugar ALCOHOL SWABS UAD to clean skin before test* Problem List As Of Date 09/23/2018 Noted Resolved SUBJECTIVE TINNITUS [H93.19] INVALID FOR* PARESH treated with BiPAP [G47.33] INVALID FOR* Hyperlipidemia [E78.5] INVALID FOR* Coronary disease [I25.10] INVALID FOR* Diabetes mellitus, type II ([facility]) [E11.9] INVALID FOR* Morbid obesity ([facility]) [E66.01] Hypothyroidism [E03.9] Anxiety [F41.9] Sleep apnea [G47.30] 02/14/2017 Essential hypertension [I10] Coronary artery disease of [place] lions artery of stoney* AF (paroxysmal atrial fibrillation) ([facility]) [I48.* COPD (chronic obstructive pulmonary disease) (H* GERD without esophagitis [K21.9] Dysphagia [R13.10] Constipation [K59.00] DM type 2 (diabetes mellitus, type 2) ([facility]) [E1* 02/14/2017 Shortness of breath [R06.02] 02/14/2017 Arthritis [M19.90] More... CHF (congestive heart failure) ([facility]) [I50.9] BPPV (benign paroxysmal positional vertigo) [H8*INVALID FOR* RLS (restless legs syndrome) [G25.81] INVALID FOR* Iron deficiency concern: RE RLS [E61.1] INVALID FOR* Tubular adenoma [D36.9] INVALID FOR* Incontinence [R32] More... Gastroparesis [K31.84] INVALID FOR* Pre-op testing [Z01.818] INVALID FOR* More... Hypercapnia [R06.89] INVALID FOR* S/P coronary artery stent placement [Z95.5] INVALID FOR* Stage 3 chronic kidney disease [N18.3] INVALID FOR* Depression [F32.9] INVALID FOR* Obesity, Class II, BMI 35-39.9 [E66.9] INVALID FOR* Prescriptions ordered this encounter Disp Refills Start End ASCORBIC ACID (VITAMIN C) 500 MG TAB* 30 t* 1 09/25/2018 Cmt: Maximum Refills Reached Sig: TAKE 1 TABLET BY MOUTH DAILY FERROUS GLUCONATE 324 MG (38 MG IRON* 30 t* 1 09/25/2018 Cmt: Maximum Refills Reached Sig: TAKE 1 TABLET BY MOUTH DAILY WITH BREAKFAST Medications Discontinued During This Encounter VITAMIN C 500 mg tablet 30 t* 0 10/23/2017 09/25/2018 Cmt: Maximum Refills Reached Sig: TAKE 1 TABLET BY MOUTH DAILY Disc: Reason for discontinue is not on file. Ferrous Gluconate (FERGON) 324 mg (3* 30 t* 0 10/23/2017 09/25/2018 Cmt: Maximum Refills Reached Sig: TAKE 1 TABLET BY MOUTH DAILY WITH BREAKFAST Disc: Reason for discontinue is not on file. Encounter Status:Closed by ROSALINO HUNTER RN on 09/25/18 PROGRESS Observed: 09/15/2018 Status: COMPLETED Source: RUSSELL 7:27 PM [facility] REPOSITORY HNO ID: [id number] Author: Nanda Rodriguez) rBian Service: (none) Author Type: Physician Type: Progress Notes Filed: 09/16/2018 11:01 AM Note Text: Late entry: Patient was called by PCC Saad Silvestre yesterday at 12:24 regarding abx. Patient found that she had it in her bag and forgot about it. Was told to take it NOW. Patient understood instructions. PROGRESS Observed: 09/14/2018 Status: COMPLETED Source: RUSSELL 11:38 AM [facility] REPOSITORY HNO ID: [id number] Author: Saad Allen) Larry Service: (none) Author Type: Registered Nurse Type: Progress Notes Filed: 09/14/2018 12:03 PM Note Text: TRANSITION CARE MANAGEMENT (TCM) INITIAL CONTACT Provider Action/FYI: Pt didn't get script for ATB and didn't know she was to be taking ATB Verbal order given by PCP for Augmentin 875 mg Q12H x 7 days Script called to Tejal at [facility] Tejal called back and stated prescription was sent to [facility] and was picked up on 09/11 PCC tried to call pt, line busy Initial contact with patient post discharge, spoke to patient. Patient identified by name and . TRANSITION CARE MANAGEMENT: Date of Outreach: 09/14/2018 Outreach Attempt 1: Contact Made Date of Discharge 09/11/2018 Some recent data might be hidden SUMMARY: -Pt discharged from [facility] on 09/11. -Follow up appointment on 09/18 with Cindi Oconnell NP. -Medication review done No. -Admitted for: 1. Acute metabolic encephalopathy secondary to acute community-acquired pneumonia and acute kidney injury 2. Acute community-acquired pneumonia 3. Acute kidney injury, resolved 4. Paroxysmal atrial fibrillation 5. Hypothyroidism 8. Type 2 diabetes mellitus 7. Anxiety/depression 8. CAD 9. Chronic COPD with chronic hypoxic respiratory failure CONCERNS: Pt did not get prescription for Augmentin Reports frequent productive cough expectorating urban mucous NEW MEDICATIONS: Augmentin 875 mg PO Q12H #14 MEDS HELD/DISCONTINUED: none BRIEF HOSPITAL COURSE: Copied from [facility] Qiandao: The patient is a 63 year old F admitted 09/09/2018 due to cough and generalized malaise. Patient was noted to have lethargy and confusion on admission. 1. Acute metabolic encephalopathy secondary to acute community-acquired pneumonia and TITI-chest x-ray admission with right upper lobe infiltrate. Brain CT unremarkable. Patient received IV Rocephin and IV azithromycin. Mental status improved. Respiratory panel negative. Patient will be discharged on Augmentin 875 p.o. twice daily for 7 days at discharge. Follow-up with primary care physician in 1 week. Chest X-Ray 09/09/18 17:15 IMPRESSION: Possible right upper lobe infiltrate medially. Cardiomegaly. Saad Silvestre RN September 14, 2018 11:56 AM CNPTOUTREACH Observed: 09/14/2018 Status: COMPLETED Source: RUSSELL 12:00 AM [facility] REPOSITORY Patient Outreach (FAMPWS) TAMIA PANDA ([id number]) 1955 F Date Time Provider Department 09/14/18 SAAD SILVESTRE) CIERA During your visit today, we recorded the following information about you: Saad Silvestre RN 09/14/2018 12:03 PM Signed TRANSITION CARE MANAGEMENT (TCM) INITIAL CONTACT Provider Action/FYI: Pt didn't get script for ATB and didn't know she was to be taking ATB Verbal order given by PCP for Augmentin 875 mg Q12H x 7 days Script called to Tejal at [facility] Tejal called back and stated prescription was sent to [facility] and was picked up on 09/11 PCC tried to call pt, line busy Initial contact with patient post discharge, spoke to patient. Patient identified by name and . TRANSITION CARE MANAGEMENT: Date of Outreach: 09/14/2018 Outreach Attempt 1: Contact Made Date of Discharge 09/11/2018 Some recent data might be hidden SUMMARY: -Pt discharged from [facility] on 09/11. -Follow up appointment on 09/18 with Cindi Oconnell NP. -Medication review done No. -Admitted for: 1. Acute metabolic encephalopathy secondary to acute community-acquired pneumonia and acute kidney injury 2. Acute community-acquired pneumonia 3. Acute kidney injury, resolved 4. Paroxysmal atrial fibrillation 5. Hypothyroidism 8. Type 2 diabetes mellitus 7. Anxiety/depression 8. CAD 9. Chronic COPD with chronic hypoxic respiratory failure CONCERNS: Pt did not get prescription for Augmentin Reports frequent productive cough expectorating urban mucous NEW MEDICATIONS: Augmentin 875 mg PO Q12H #14 MEDS HELD/DISCONTINUED: none BRIEF HOSPITAL COURSE: Copied from [facility] Qiandao: The patient is a 63 year old F admitted 09/09/2018 due to cough and generalized malaise. Patient was noted to have lethargy and confusion on admission. 1. Acute metabolic encephalopathy secondary to acute community-acquired pneumonia and TITI-chest x-ray admission with right upper lobe infiltrate. Brain CT unremarkable. Patient received IV Rocephin and IV azithromycin. Mental status improved. Respiratory panel negative. Patient will be discharged on Augmentin 875 p.o. twice daily for 7 days at discharge. Follow-up with primary care physician in 1 week. Chest X-Ray 09/09/18 17:15 IMPRESSION: Possible right upper lobe infiltrate medially. Cardiomegaly. Saad Silvestre RN September 14, 2018 11:56 AM Nanda Oliveira MD 09/16/2018 11:01 AM Signed Late entry: Patient was called by PCC Saad Silvestre yesterday at 12:24 regarding abx. Patient found that she had it in her bag and forgot about it. Was told to take it NOW. Patient understood instructions. Allergies As of Date: 09/14/2018 Noted Allergy Reaction ADHESIVE TAPE (ROSINS) 04/04/2015 5 - Intolerance Comments: Surgical tape leaves rash Irritates skin badly and blisters along with medical tape CATS 04/10/2016 14 - Other: See Comments Comments: Congested and itchy, difficulty breathing DOGS 04/10/2016 14 - Other: See Comments Comments: Congestion, sneezing, and difficulty breathing ORPHENADRINE 04/10/2016 16 - Unknown CAPSAICIN 03/02/2018 9 - Itching CIPROFLOXACIN 12/11/2011 14 - Other: See Comments Comments: Red, hot, itchy rash KEFLEX (CEPHALEXIN) 07/10/2016 4 - Hives Comments: Negative skin testing and successful completion of an oral amoxicillin challenge was completed on 03/02/2018. Cephalexin shares an almost identical R1 side chain to amoxicillin; therefore, it is unlikely that she would be at elevated risk for developing an IgE-mediated reaction (allergic/anaphylactic). If she should need this medication in the future, I would recommend giving the first dose in a supervised medical setting. If no reaction after 30 minutes, proceed with regular dosing. NIACIN 04/04/2015 16 - Unknown Comments: Pt states its niacin its niaspan REGLAN (METOCLOPRAMIDE HCL) 03/04/2017 14 - Other: See Comments Comments: Unable to sleep XANTHINES 10/18/2004 16 - Unknown ZOFRAN (ONDANSETRON HCL (PF)) 02/03/2018 9 - Itching Date Reviewed: 08/17/2018 Reviewed by: Clayton Serna Ma - Fully Assessed Reason for Visit: Transition Of Care [4074] Primary Visit Diagnosis:Pneumonia due to infectious organism, unspecified laterality, unspecified part of lung [J18.9] Prescriptions as of 09/14/2018 Sig: ALBUTEROL SULFATE HFA 90 MCG/* Inhale 2 Puffs as instructed * ALCOHOL SWABS UAD to clean skin before test* ASPIRIN 81 MG TABLET,DELAYED * TAKE 1 TABLET BY MOUTH EVERY * ATORVASTATIN 40 MG TABLET TAKE 1 TABLET BY MOUTH DAILY BIPAP Bilevel PAP 16/12 cmH2O with * COMPOUNDED PRESCRIPTION BLOOD PRESSURE CUFF FOR HOME * BLOOD-GLUCOSE METER KIT UAD to test blood sugar BUSPIRONE 7.5 MG TABLET TAKE 1 TABLET BY MOUTH TWICE * CAPSAICIN 0.075 % TOPICAL CRE* Apply 1 application to affect* COMPOUNDED PRESCRIPTION Evaluation for diabetic shoes* COMPOUNDED PRESCRIPTION OCD Titration for portable ox* COMPOUNDED PRESCRIPTION Please fit for BiPAP mask. DILTIAZEM SR 180 MG 24 HR CAP TAKE 1 CAPSULE BY MOUTH EVERY* DULOXETINE 60 MG CAPSULE,MARIA EUGENIA* TAKE 1 CAPSULE BY MOUTH DAILY ELIQUIS 2.5 MG TABLET TAKE 1 TABLET BY MOUTH TWICE * ESTRADIOL 0.01% (0.1 MG/GRAM)* Apply pea-sized amount to per* FERROUS GLUCONATE 324 MG (38 * TAKE 1 TABLET BY MOUTH DAILY * FLUTICASONE 50 MCG/ACTUATION * Use 2 Sprays in each nostril * FUROSEMIDE 40 MG TABLET Take 1 tablet by mouth twice * CLAUDIA-KYLE 8.6 MG TABLET TAKE 1 TABLET BY MOUTH TWICE * GLUCOSE 4 GRAM CHEWABLE TABLET Take 4 tablets by mouth as ne* GLUCOSE 4 GRAM CHEWABLE TABLET TAKE 4 TABLETS BY MOUTH NE* IBUPROFEN 200 MG TABLET Take 200 mg by mouth every 6 * INCONTINENCE PAD, LINER, DISP* 1 Device as needed (urinary i* INSULIN GLARGINE (U-100) 100 * Inject 36 units subcutaneousl* INSULIN LISPRO (U-200) 200 UN* Inject subcutaneously 14 unit* ISOSORBIDE MONONITRATE ER 60 * TAKE 1 AND 1/2 TABLETS BY MOUTH* LANTUS SOLOSTAR U-100 INSULIN* INJECT 56 UNITS SUBCUTANEOUSL* LEVOTHYROXINE 100 MCG TABLET TAKE 1 TABLET BY MOUTH EVERY * LYRICA 100 MG CAPSULE TAKE 1 CAPSULE BY MOUTH THREE* METFORMIN ER 500 MG TABLET,EX* TAKE 2 TABLETS BY MOUTH TWICE* METOPROLOL TARTRATE 100 MG TA* TAKE 1 TABLET BY MOUTH TWICE * NITROGLYCERIN 0.4 MG SUBLINGU* DISSOLVE 1 TAB UNDER THE TONG* OMEPRAZOLE 20 MG CAPSULE,MARIA EUGENIA* TAKE 1 CAPSULE BY MOUTH EVERY* OXYGEN (HOME THERAPY) Inhale 3 L/min as instructed * PROMETHAZINE 25 MG TABLET Take 1 tablet by mouth every * PSEUDOEPHEDRINE-GUAIFENESIN E* Take 1 tablet by mouth twice * STOOL SOFTENER 100 MG CAPSULE TAKE 1 CAPSULE BY MOUTH DAILY ULTICARE PEN NEEDLE 31 GAUGE * USE DIRECTED. TO INJECT IN* VITAMIN C 500 MG TABLET TAKE 1 TABLET BY MOUTH DAILY X ONETOUCH DELICA LANCETS 30 GA* USE TO CHECK BLOOD SUGAR 4-5 * X BUX ULTRA BLUE TEST STRIP USE DIRECTED TO CHECK BLOO* Problem List As Of Date 09/14/2018 Noted Resolved SUBJECTIVE TINNITUS [H93.19] INVALID FOR* PARESH treated with BiPAP [G47.33] INVALID FOR* Hyperlipidemia [E78.5] INVALID FOR* Coronary disease [I25.10] INVALID FOR* Diabetes mellitus, type II ([facility]) [E11.9] INVALID FOR* Morbid obesity ([facility]) [E66.01] Hypothyroidism [E03.9] Anxiety [F41.9] Sleep apnea [G47.30] 02/14/2017 Essential hypertension [I10] Coronary artery disease of [place] artery of [place]* AF (paroxysmal atrial fibrillation) ([facility]) [I48.* COPD (chronic obstructive pulmonary disease) (H* GERD without esophagitis [K21.9] Dysphagia [R13.10] Constipation [K59.00] DM type 2 (diabetes mellitus, type 2) ([facility]) [E1* 02/14/2017 Shortness of breath [R06.02] 02/14/2017 Arthritis [M19.90] More... CHF (congestive heart failure) ([facility]) [I50.9] BPPV (benign paroxysmal positional vertigo) [H8*INVALID FOR* RLS (restless legs syndrome) [G25.81] INVALID FOR* Iron deficiency concern: RE RLS [E61.1] INVALID FOR* Tubular adenoma [D36.9] INVALID FOR* Incontinence [R32] More... Gastroparesis [K31.84] INVALID FOR* Pre-op testing [Z01.818] INVALID FOR* More... Hypercapnia [R06.89] INVALID FOR* S/P coronary artery stent placement [Z95.5] INVALID FOR* Stage 3 chronic kidney disease [N18.3] INVALID FOR* Depression [F32.9] INVALID FOR* Obesity, Class II, BMI 35-39.9 [E66.9] INVALID FOR* Encounter Status:Closed by SAAD SILVESTRE on 09/16/18 12 LEAD ELECTROCARDIOGRAM Observed: 09/11/2018 Status: F Source: KINJAL 1:57 PM [facility] REPOSITORY [facility] Cardiovascular Services [address] [place] [address] 12 Lead EKG 09/09/18 1659 MR#: [id number] Acct: [id number] Name: TAMIA PANDA Rep #: [id number] : 1955 63 From: Bart Blas MD Attending Dr: Yvon Hogan MD Status: ADM IN Ordering Dr: Anju Gibson MD Date: 09/09/18 Location: [facility] Sex: F C Admitted: 09/09/18 Test Reason : SOB Blood Pressure : / mmHG Vent. Rate : 105 BPM Atrial Rate : 312 BPM P-R Int : 000 ms QRS Dur : 092 ms QT Int : 380 ms P-R-T Axes : 000 -24 155 degrees QTc Int : 502 ms Atrial fibrillation with rapid ventricular response Minimal voltage criteria for LVH, may be normal variant ST AND T wave abnormality, consider lateral ischemia Abnormal ECG Confirmed by WAN ABRAHAM, BART ([id number]), senior technical editor SHYANNE TERRAZAS ([id number]) on 09/11/2018 1:57:01 PM Referred By: Annamarie Andrews Confirmed By:BART BLAS MD 09/11/18 1357 Date Bart Blas MD CC: MD Eder Gibson; Bhupendra Oliveira MD; Yvon Hogan MD; Annamarie Andrews MD Signed DISCHARGE SUMMARY Observed: 09/11/2018 Status: F Source: MEARS 12:43 PM [facility] REPOSITORY [facility] Medical Records Department [address] [place] [id number] Discharge Summary 09/11/18 1006 MR#: [id number] Acct: [id number] Name: TAMIA PANDA Rep #: [id number] : 1955 63 From: Rosa Hanna CLIENT TECHNICAL SPECIALIST-C PCP: Bhupendra Oliveira MD Status: ADM IN Y Location: [place] [id number] <Rosa Hanna - Last Filed: 09/11/18 10:14> Discharge Date and Diagnosis Date of Admission: 09/09/18 Date of Discharge: 09/11/18 - Primary Discharge Diagnosis 1. Acute metabolic encephalopathy secondary to acute community- acquired pneumonia and acute kidney injury 2. Acute community-acquired pneumonia 3. Acute kidney injury, resolved 4. Paroxysmal atrial fibrillation 5. Hypothyroidism 6. Type 2 diabetes mellitus 7. Anxiety/depression 8. CAD 9. Chronic COPD with chronic hypoxic respiratory failure - Secondary Discharge Diagnosis Chronic Problems Paroxysmal A-fib (Chronic) Diabetes mellitus type 2 in obese (Chronic) Coronary arteriosclerosis (Chronic) cath 05/2015 mild-moderate disease medical therapy recommended Hypothyroidism (Chronic) Hyperlipemia (Chronic) GERD (gastroesophageal reflux disease) (Chronic) Hypertension (Chronic) COPD (chronic obstructive pulmonary disease) (Chronic) Chronic respiratory insufficiency (Chronic) On home oxygen at night S/P PTCA (percutaneous transluminal coronary angioplasty) (Chronic) PARESH (obstructive sleep apnea) (Chronic) non-complaint with CPAP Hospital Course and Treatment Imaging Results: Diagnostic Data Chest X-Ray 09/09/18 17:15 IMPRESSION: Possible right upper lobe infiltrate medially. Cardiomegaly. Electronically Signed: Rashaun Glasgow DO at 18:25 EST Tel [phone], Service support , Brain CT 09/09/18 17:17 IMPRESSION: Normal unenhanced CT scan of the brain. Electronically Signed: Kamari Andino MD at 18:08 EST , Service support , Operations: None Procedures: None Summary of Care Provided: The patient is a 63 year old F admitted 09/09/2018 due to cough and generalized malaise. Patient was noted to have lethargy and confusion on admission. 1. Acute metabolic encephalopathy secondary to acute community- acquired pneumonia and TITI-chest x-ray admission with right upper lobe infiltrate. Brain CT unremarkable. Patient received IV Rocephin and IV azithromycin. Mental status improved. Respiratory panel negative. Patient will be discharged on Augmentin 875 p.o. twice daily for 7 days at discharge. Follow-up with primary care physician in 1 week. 2. Acute kidney injury-resolved with IV fluids. 3. Paroxysmal atrial fibrillation-rate controlled. Continue metoprolol and Eliquis. 4. Hypothyroidism-continue Synthroid. 5. Anxiety/depression- continue buspar/cymbalta. 6. GERD- continue PPI. 7. CAD-continue aspirin, statin, metoprolol, imdur. 8. Chronic COPD with chronic hypoxic respiratory failure- no acute exacerbation. On baseline home O2. 9. Type 2 diabetes mellitus-continue home insulin regimen. Recent hemoglobin A1c 09/02/2018 and 7.4%. General: Alert, Oriented x3, Cooperative, No apparent distress HEENT: Atraumatic, PERRLA, EOMI, Normocephalic Oral: Moist Mucosa Neck: Supple, No JVD, Negative Carotid Bruits Lungs: Clear to auscultation, Diminished Cardiovascular: Atrial fibrillation, rate controlled Abdomen: Bowel Sounds Present, Soft, Non Tender, Non-Distended Extremities: No clubbing, No cyanosis, No edema, Capillary Refill Less than 3 Seconds Skin: No rashes, No breakdown Musculoskeletal: No Tenderness to Palpation of Joints or Extremities Neurological: Cranial nerves II-XII grossly intact, Neuro grossly intact Psych/Mental Status: Normal Affect, Appropriate Patient seen and examined prior to discharge. Physical assessment as noted above. Patient is stable for discharge with follow up recommendations as noted above. This patient was seen by IZABELA Kraus under the supervision of Dr. Hogan. - Physical Exam Vital Signs Temp Pulse Resp BP Pulse Ox 97.5 F L 97 17 128/91 H 98 09/11/18 08:46 09/11/18 09:02 09/11/18 08:46 09/11/18 08:46 09/11/18 08:46 Oxygen Flow Rate (L/min) 3 Oxygen Delivery Method Nasal Cannula Weight: 205 lb 0.478 oz Body Mass Index (BMI) 37.5 Finger Stick Blood Glucose 263 Intake and Output for Last 24 Hours Intake Total 265 / 265 3176.4 / 3176.4 200 / 200 Output Total 800 / 800 200 / 200 Balance 265 / 265 2376.4 / 2376.4 0 / 0 Microbiology Past 72 Hours 09/10/18 02:45 Respiratory Panel (PCR) - Final Mucosa - Nasopharyngeal Laboratory Tests Past 24 Hrs Urine Opiates Screen NEGATIVE Urine Methadone Screen NEGATIVE Ur Barbiturates Screen NEGATIVE Ur Phencyclidine Scrn NEGATIVE POC Glucose POC Glucose 372 H 322 H 360 H POC Glucose 352 H Discharge Diet: Low fat/ Low Cholesterol, Carb Control Diet Discharge Activity: Return to Normal Activity Call your doctor if you observe: Fever of 101 or Higher, Shortness of breath, Dizziness, Fainting spells, Chest pain Home Medications: Medications to take at Discharge Atorvastatin Calcium [Lipitor] 40 mg PO DAILY 02/03/18 Duloxetine Hcl [Cymbalta] 60 mg PO DAILY 02/03/18 Insulin Lispro [Humalog KwikPen] 22 unit SQ LUNCH 02/03/18 Insulin Lispro [Humalog KwikPen] 24 unit SQ DINNER 02/03/18 Insulin Lispro [Humalog] 16 unit SQ BREAKFAST 02/03/18 Isosorbide Mononitrate [Imdur] 90 mg PO DAILY 02/03/18 Levothyroxine [Synthroid] 100 mcg PO DAILY 02/03/18 Apixaban [Eliquis] 2.5 mg PO BID 05/17/18 Ascorbic Acid [Vitamin C] 500 mg PO DAILY@0800 05/17/18 Omeprazole [Prilosec] 20 mg PO DAILY 05/17/18 Ferrous Gluconate 324 mg PO DAILY 07/22/18 Albuterol IH (ProAir) [Proair Hfa] 2 puff INHALATION Q4H PRN PRN 08/05/18 Acetaminophen [Tylenol] 1,000 mg PO Q8 PRN tablet 08/06/18 Aspirin E.C. [Ecotrin] 81 mg PO DAILY@0800 09/02/18 Buspirone HCl [Buspar] 7.5 mg PO BID 09/02/18 Docusate Sodium [Colace] 100 mg PO DAILY 09/02/18 Furosemide [Lasix] 40 mg PO BID 09/02/18 Metoprolol Tartrate [Lopressor (beta sudhakar)] 100 mg PO BID 09/02/18 Sennosides [Senna] 8.6 mg PO BID 09/02/18 Trueplus Glucose Chew 4 tab PO PRN PRN 09/02/18 Insulin Glargine,Hum.rec.anlog [Lantus] 36 unit SQ BID 09/10/18 Amox/Clavulanate Tablet [Augmentin Tablet] 875 mg PO Q12H #14 tablet 09/11/18 Following Prescrptions Were Given to Patient: Amox/Clavulanate Tablet [Augmentin Tablet] 875 mg PO Q12H #14 tablet Primary Care Physician: Bhupendra Oliveira MD [Primary Care Provider] - Please follow up with your Primary Care Physician in: 1 Week Disposition: Home with Home Health Minutes spent on discharge:: 35 Patient Condition:: Stable Medical Necessity - Tobacco Use Smoking Status: Former smoker Meaningful Use Info Meaningful Use Diagnoses (Choose all that apply): None applicable <Yvon Hogan - Last Filed: 09/11/18 12:43> Discharge Date and Diagnosis - Secondary Discharge Diagnosis Chronic Problems Paroxysmal A-fib (Chronic) Diabetes mellitus type 2 in obese (Chronic) Coronary arteriosclerosis (Chronic) cath 05/2015 mild-moderate disease medical therapy recommended Hypothyroidism (Chronic) Hyperlipemia (Chronic) GERD (gastroesophageal reflux disease) (Chronic) Hypertension (Chronic) COPD (chronic obstructive pulmonary disease) (Chronic) Chronic respiratory insufficiency (Chronic) On home oxygen at night S/P PTCA (percutaneous transluminal coronary angioplasty) (Chronic) PARESH (obstructive sleep apnea) (Chronic) non-complaint with CPAP Hospital Course and Treatment Summary of Care Provided: This patient was seen in conjunction with IZABELA Kraus . I have independently interviewed and examined the patient and reviewed pertinent historical, laboratory, and other data. Please refer to IZABELA Kraus note for details of this patient's presentation, findings, and recommendations. I have reviewed IZABELA Kraus note and concur with documented findings. In brief, patient is a 63-year-old who presented with altered mental status and shortness of breath and assessment of pneumonia made admitted to a monitored bed for further management Assessment: 1. Acute metabolic encephalopathy secondary to acute kidney injury 2. Community-acquired pneumonia 3. Paroxysmal atrial fibrillation on metoprolol and Eliquis 4. Assessment hypertension 5. Depression with anxiety 6. GERD 7. COPD no exacerbation 8. Coronary artery disease 9. DVT prophylaxis on Eliquis Hospital course: As elicited above by Rosa GURROLA - Physical Exam Vital Signs Temp Pulse Resp BP Pulse Ox 97.5 F L 97 17 128/91 H 98 09/11/18 08:46 09/11/18 09:02 09/11/18 08:46 09/11/18 08:46 09/11/18 08:46 Oxygen Flow Rate (L/min) 3 Oxygen Delivery Method Nasal Cannula Weight: 93 kg Body Mass Index (BMI) 37.5 Finger Stick Blood Glucose 263 Intake and Output for Last 24 Hours Intake Total 265 / 265 3176.4 / 3176.4 985 / 985 Output Total 800 / 800 200 / 200 Balance 265 / 265 2376.4 / 2376.4 785 / 785 Microbiology Past 72 Hours 09/10/18 02:45 Respiratory Panel (PCR) - Final Mucosa - Nasopharyngeal Laboratory Tests Past 24 Hrs Urine Opiates Screen NEGATIVE Urine Methadone Screen NEGATIVE Ur Barbiturates Screen NEGATIVE Ur Phencyclidine Scrn NEGATIVE POC Glucose POC Glucose 472 H* 372 H 322 H POC Glucose 360 H Code Visit Inpatient E AND M: [id number] Disch Hosp 09/11/18 1014 <Electronically signed by Rosa Hanna CLIENT TECHNICAL SPECIALIST-C> Date Rosa Hanna CLIENT TECHNICAL SPECIALIST-C 09/11/18 1243<Electronically signed by Yvon Hogan MD> Cosigner Signature (if applicable): Date Yvon Hogan MD CC: CLIENT TECHNICAL SPECIALIST-C Rosa Hanna; Bhupendra Oliveira MD; Yvon Hogan MD Signed BEDSIDE GLUCOSE Collected: 09/11/2018 Status: F Source: K[place] 12:02 PM [facility] REPOSITORY TYPE CODE TESTS RESULT OUT OF REFERENCE UNITS RANGE LAB L501.080 70-110 mg/dL High alert BEDSIDE GLU 472 Result Comment: MANAGEMENT OF PATIENT CARE PER NURSING PROTOCOL Performed By: #### L501.080 #### [facility] Point of Care [address] [place] [address] DISCHARGE INSTRUCTION Observed: 09/11/2018 Status: F Source: K[place]JAL 10:06 AM [facility] REPOSITORY [facility] Medical Records Department [address] [place] [address] Instructions for Home/Discharge Instructions 09/11/18 0955 MR#: [id number] Acct: [id number] Name: TAMIA PANDA Rep #: [id number] : 1955 63 From: Rosa GURROLA PCP: Bhupendra Oliveira MD Status: ADM IN You will use the following diet at home:: Calorie/Carbohydrate Controlled (specify 1200, 1400, etc), Cardiac Discharge Activity: Return to Normal Activity Call your doctor if you observe: Fever of 101 or Higher, Shortness of breath, Dizziness, Fainting spells, Chest pain Allergies/Adverse Reactions: Allergies ciprofloxacin [From Cipro] Allergy (Verified 09/09/18 17:02) Hives latex Allergy (Verified 09/09/18 17:02) matos me niacin [From Niaspan Extended-Release] Allergy (Verified 09/09/18 17:02) Hives ondansetron [From Zofran] Allergy (Verified 09/09/18 17:02) Unknown Xanthines Allergy (Verified 09/09/18 17:02) Unknown orphenadrine citrate [From Norgesic] Adverse Reaction (Verified 09/09/18 17:02) groggy medical tape Adverse Reaction (Uncoded 09/09/18 17:02) blisters Medications to take at Discharge Atorvastatin Calcium [Lipitor] 40 mg PO DAILY 02/03/18 Duloxetine Hcl [Cymbalta] 60 mg PO DAILY 02/03/18 Insulin Lispro [Humalog KwikPen] 22 unit SQ LUNCH 02/03/18 Insulin Lispro [Humalog KwikPen] 24 unit SQ DINNER 02/03/18 Insulin Lispro [Humalog] 16 unit SQ BREAKFAST 02/03/18 Isosorbide Mononitrate [Imdur] 90 mg PO DAILY 02/03/18 Levothyroxine [Synthroid] 100 mcg PO DAILY 02/03/18 Apixaban [Eliquis] 2.5 mg PO BID 05/17/18 Ascorbic Acid [Vitamin C] 500 mg PO DAILY@0800 05/17/18 Omeprazole [Prilosec] 20 mg PO DAILY 05/17/18 Ferrous Gluconate 324 mg PO DAILY 07/22/18 Albuterol IH (ProAir) [Proair Hfa] 2 puff INHALATION Q4H PRN PRN 08/05/18 Acetaminophen [Tylenol] 1,000 mg PO Q8 PRN tablet 08/06/18 Aspirin E.C. [Ecotrin] 81 mg PO DAILY@0800 09/02/18 Buspirone HCl [Buspar] 7.5 mg PO BID 09/02/18 Docusate Sodium [Colace] 100 mg PO DAILY 09/02/18 Furosemide [Lasix] 40 mg PO BID 09/02/18 Metoprolol Tartrate [Lopressor (beta sudhakar)] 100 mg PO BID 09/02/18 Sennosides [Senna] 8.6 mg PO BID 09/02/18 Trueplus Glucose Chew 4 tab PO PRN PRN 09/02/18 Insulin Glargine,Hum.rec.anlog [Lantus] 36 unit SQ BID 09/10/18 Amox/Clavulanate Tablet [Augmentin Tablet] 875 mg PO Q12H #14 tablet 09/11/18 The following prescriptions were given: Amox/Clavulanate Tablet [Augmentin Tablet] 875 mg PO Q12H #14 tablet Primary Care Physician: Bhupendra Oliveira MD [Primary Care Provider] - Please follow up with your Primary Care Physician in: 1 Week Test Results: Test results from this visit will be discussed in further detail at your follow-up appointment, if applicable. Proposed Discharge Date: 09/11/18 09/11/18 1006 <Electronically signed by Rosa GURROLA> Date Rosa GURROLA CC: Bhupendra Oliveira MD BEDSIDE GLUCOSE Collected: 09/11/2018 Status: F Source: KINJAL 6:38 AM [facility] REPOSITORY TYPE CODE TESTS RESULT OUT OF REFERENCE UNITS RANGE LAB L501.080 70-110 mg/dL High BEDSIDE GLU 372 Result Comment: MANAGEMENT OF PATIENT CARE PER NURSING PROTOCOL Performed By: #### L501.080 #### [facility] [address] BEDSIDE GLUCOSE Collected: 09/10/2018 Status: F Source: KINJAL 9:27 PM [facility] REPOSITORY TYPE CODE TESTS RESULT OUT OF REFERENCE UNITS RANGE LAB L501.080 70-110 mg/dL High BEDSIDE GLU 322 Result Comment: MANAGEMENT OF PATIENT CARE PER NURSING PROTOCOL Performed By: #### L501.080 #### [facility] Point of Care [address] [place], [place] [address] BEDSIDE GLUCOSE Collected: 09/10/2018 Status: F Source: KINJAL 4:28 PM [facility] REPOSITORY TYPE CODE TESTS RESULT OUT OF REFERENCE UNITS RANGE LAB L501.080 70-110 mg/dL High BEDSIDE GLU 360 Result Comment: MANAGEMENT OF PATIENT CARE PER NURSING PROTOCOL Performed By: #### L501.080 #### [facility] Point of Care [address] [facility] [place] [address] URINE DRUG SCREEN Collected: 09/10/2018 Status: F Source: KINJAL (VISTA) 3:37 PM [facility] REPOSITORY TYPE CODE TESTS RESULT OUT OF RANGE REFERENCE UNITS LAB L505.0075 TO BE Normal CONFIRMED Result Comment: CONFIRMATORY TESTING FOR ALL POSITIVE URINE DRUG SCREEN RESULTS WILL ONLY BE SENT OUT UPON PHYSICIAN ORDER. VISTA Urine Drug Screen methods provide only preliminary analytical test results. A more specific alternate chemical method must be used in order to obtain a confirmed analytical result. Gas chromatography/mass spectrometery (GC/MS) is the preferred confirmatory method. Clinical consideration and professional judgement should be applied to any drug of abuse test result, particularly when preliminary positive results are used. URINE TCA TESTING MUST BE ORDERED SEPARATELY. USE TEST MNEMONIC: [facility]CA LAB L505.5005 VISTA UDS PH 6 Normal LAB L505.5015 <1000 ng/mL AMPHETAMINES Normal NEGATIVE LAB L505.5025 < 200 ng/mL BARBITIURATES Normal NEGATIVE LAB L505.5035 < 200 ng/mL BENZODIAZIPINE Normal NEGATIVE LAB L505.5045 < 300 ng/mL COCAINE Normal NEGATIVE LAB L505.5055 < 500 ng/mL ECSTACY Normal NEGATIVE LAB L505.5065 < 300 ng/mL METHADONE Normal NEGATIVE LAB L505.5075 < 300 ng/mL OPIATES Normal NEGATIVE LAB L505.5085 < 25 ng/mL PCP Normal NEGATIVE LAB L505.5095 < 50 ng/mL THC Normal NEGATIVE Performed By: #### L505.5000 #### [facility] [address] [facility] [place], [address] BEDSIDE GLUCOSE Collected: 09/10/2018 Status: F Source: KINJAL 11:22 AM [facility] REPOSITORY TYPE CODE TESTS RESULT OUT OF REFERENCE UNITS RANGE LAB L501.080 70-110 mg/dL High BEDSIDE GLU 352 Result Comment: MANAGEMENT OF PATIENT CARE PER NURSING PROTOCOL Performed By: #### L501.080 #### [facility] Point of [place] [address] CBC W/DIFF, AUTOMATED Collected: 09/10/2018 Status: F Source: KINJAL 7:00 AM [facility] REPOSITORY TYPE CODE TESTS RESULT OUT OF RANGE REFERENCE UNITS LAB L100.1000 4.4-11.0 K/mm3 Normal WBC 5.6 LAB L100.1200 4.2-5.4 M/mm3 Normal RBC 4.63 LAB L100.1300 12.0-15.0 g/dl Normal HGB 13.1 LAB L100.1400 37-47 % Normal HCT 42.5 LAB L100.1500 81-99 fL Normal MCV 91.8 LAB L100.1600 27.0-32.0 pg Normal MCH 28.3 LAB L100.1700 32-36 g/gl Low MCHC 30.8 LAB L100.1810 11.6-14.6 % High RDW CV 16.3 LAB L100.1820 35.1-43.9 fl High RDW SD 54.1 LAB L100.1900 150-450 K/mm3 Normal PLT 175 LAB L100.2000 6.2-12.0 fl Normal MPV 10.6 LAB L100.2100 47-70 % Normal NEUT% 64.3 LAB L100.2200 19-41 % Normal LY% 20.0 LAB L100.2300 0-10 % Normal MONO% 9.6 LAB L100.2400 0-5 % High EO% 5.7 LAB L100.2500 0-1 % Normal BASO% 0.2 LAB L100.2550 0.0-0.9 % Normal IM GRAN % 0.200 Result Comment: IG% - Immature Granulocytes (promyelocytes, myelocytes and metamyelocytes) > 1% indicates that a LEFT SHIFT is Present. LAB L100.2620 2.0-7.7 X10 3/uL Normal Absolute Neut 3.6 LAB L100.2720 0.83-4.51 X10 3/ul Normal Absolute Lymph 1.12 Performed By: #### L100.0100 #### [facility] [address] [place], [address] BASIC METABOLIC Collected: 09/10/2018 Status: F Source: KINJAL PROFILE (BMP) 7:00 AM [facility] REPOSITORY TYPE CODE TESTS RESULT OUT OF RANGE REFERENCE UNITS LAB L501.0100 74-106 mg/dL High GLU 183 Result Comment: Fasting Glucose result greater than or equal to 126 mg/dL suggests DIABETES MELLITUS per A.D.A. criteria. Please note revised GLUCOSE reference range effective 2017. LAB L501.1000 7-18 mg/dL Normal BUN 17 LAB L501.1100 0.55-1.02 mg/dL Normal CREAT,SERUM 0.78 Result Comment: The validity of the calculated GFR AND GFRAA in patients over 70 years has not been determined. Clinical correlation is essential. LAB L501.1110 >60 mL/min Normal EST GFR 79 Result Comment: Non- GFR Calc LAB L501.1115 >60 mL/min Normal EST GFR - AA 96 Result Comment: GFR Calc LAB L501.1255 ml/min Normal Estimated CRCL 58.39 LAB L501.1300 10-20 RATIO High BUN/CRE 21.8 LAB L501.2200 8.5-10 mg/dL Normal .1 CA 8.5 LAB L501.5300 136-14 mmol/L Normal 5 NA 140 LAB L501.5600 3.5-5. mmol/L Normal 1 K 3.7 Result Comment: Slight Hemolysis, Result may be falsely increased. LAB L501.5900 98-107 mmol/L Normal CL 102 LAB L501.6100 21.0-32.0 mmol/L Normal CO2 28.0 LAB L501.6200 5-15 Normal GAP 10 Performed By: #### L500.2500 #### [facility] [address] [place], [place], [address] BEDSIDE GLUCOSE Collected: 09/10/2018 Status: F Source: KINJAL 6:49 AM [facility] REPOSITORY TYPE CODE TESTS RESULT OUT OF REFERENCE UNITS RANGE LAB L501.080 70-110 mg/dL High BEDSIDE GLU 187 Result Comment: MANAGEMENT OF PATIENT CARE PER NURSING PROTOCOL Performed By: #### L501.080 #### [facility] Point of Care [address] [place] [address] HISTORY AND PHYSICAL Observed: 09/10/2018 Status: F Source: MEARS EXAM 3:54 AM [facility] REPOSITORY [facility] Medical Records Department [address] [place] [address] History and Physical 09/09/182000 MR#: [id number] Acct: [id number] Name: TAMIA PANDA Rep #: [id number] : 1955 63 From: Annamarie Andrews MD PCP: Bhupendra Oliveira MD Status: ADM IN Y Location: [place] [address] History of Present Illness Date of Admission: 09/09/18 Chief Complaint: cough The patient is a 63 year old F with an extensive past medical history as listed below. She was admitted through the ED on 09/09/2018 with complaint of a cough and generalized malaise. She was confused and lethargic and a poor historian. All she could say was that she had been having a productive cough for a few days; she denied any fever or chills, any chest pain, SOB, abdominal pain, diarrhea or vomiting. Review of systems was otherwise negative. She admits to having sleep apnea, but cannot say whether she has been using the PARESH. In the ED, vitals were significant for pulse rate of 101 and she was saturating 100% on 2 L of oxygen. BMP showed creatinine of 1.1 and BNP was 124.8. Chest x-ray showed a right-sided infiltrate and head CT were negative. EKG showed A. fib with heart rate been around 130 at time of admission. She is been admitted to be managed for pneumonia and A. fib. [] Past Medical History Past Medical History (Chronic Problems): Chronic Problems Paroxysmal A-fib (Chronic) Diabetes mellitus type 2 in obese (Chronic) Coronary arteriosclerosis (Chronic) cath 05/2015 mild-moderate disease medical therapy recommended Hypothyroidism (Chronic) Hyperlipemia (Chronic) GERD (gastroesophageal reflux disease) (Chronic) Hypertension (Chronic) COPD (chronic obstructive pulmonary disease) (Chronic) Chronic respiratory insufficiency (Chronic) On home oxygen at night S/P PTCA (percutaneous transluminal coronary angioplasty) (Chronic) PARESH (obstructive sleep apnea) (Chronic) non-complaint with CPAP Allergies ciprofloxacin [From Cipro] Allergy (Verified 09/09/18 17:02) Hives latex Allergy (Verified 09/09/18 17:02) matos me niacin [From Niaspan Extended-Release] Allergy (Verified 09/09/18 17:02) Hives ondansetron [From Zofran] Allergy (Verified 09/09/18 17:02) Unknown Xanthines Allergy (Verified 09/09/18 17:02) Unknown orphenadrine citrate [From Norgesic] Adverse Reaction (Verified 09/09/18 17:02) groggy medical tape Adverse Reaction (Uncoded 09/09/18 17:02) blisters Home Medications: Ambulatory Orders Medication Instructions Recorded Atorvastatin Calcium [Lipitor] 40 mg PO DAILY 02/03/18 Duloxetine Hcl [Cymbalta] 60 mg PO DAILY 02/03/18 Surgical History: angioplasty, cholecystectomy, herniorrhaphy, hysterectomy, - - tubal ligation. Psychiatric History: No pertinent psych hx LOG CUT OFF SAWYER History: No pertinent LOG CUT OFF SAWYER history Lives: Alone Smoking Status: Former smoker - *Family History Sibling History Items: COPD - in sister. Maternal History Items: No pertinent history Paternal History Items: Heart Disease, Stroke - age 62 Offspring History Items: No pertinent history - 5 children, 32 grand children and great grandchildren Review of Systems Constitutional: Reports: Malaise, Weakness, Fatigue. Denies: Chills, Fever, Weight Change Eyes: Denies: Blurred vision HEENT: Denies: Head Aches, Sinus Congestion, Sinus Drainage Cardiovascular: Denies: Chest Pain, Palpitations Respiratory: Reports: Cough. Denies: Shortness of Breath, Shortness of breath at rest, Shortness of breath upon exertion Gastrointestinal: Denies: Abdominal Pain, Nausea, Vomiting Genitourinary: Denies: Dysuria Musculoskeletal: Denies: Joint Pain, Joint Tenderness Skin: Denies: Rash, Wounds Neurological: Denies: Numbness, Tingling, Focal weakness Psychiatric: Denies: Anxiety, Depression, Homicidal Ideations, Suicidal Ideations Hematologic/ Lymphatic: Denies: Easy Bruising, Easy Bleeding VTE Information - Inpt Only VTE Present on Admission: No VTE Pharm Prophylaxis ordered?: Yes - Physical Exam General: Alert, Confused, Lethargic HEENT: Atraumatic, PERRLA, EOMI, Normocephalic Oral: Dry Mucosa Neck: Supple, No JVD, Negative Carotid Bruits Lungs: Clear to auscultation, Normal air movement, No rhonchi, No wheeze, No rales Cardiovascular: Normal S1, Normal S2, No murmurs, Irregular Rate Abdomen: Bowel Sounds Present, Soft, Non Tender Extremities: No clubbing, No cyanosis, No edema, Capillary Refill Less than 3 Seconds Skin: No rashes, No breakdown Musculoskeletal: No Tenderness to Palpation of Joints or Extremities Lymphatic: No Cervical, Supraclavicular, or Inguinal Adenopathy Neurological: Cranial nerves II-XII grossly intact, Neuro grossly intact Psych/Mental Status: - - Very lethargic and drowsy Vital Signs Temp Pulse Resp BP Pulse Ox 97.9 F 63 16 103/57 L 94 09/09/18 18:00 09/09/18 18:04 09/09/18 18:04 09/09/18 18:04 09/09/18 18:04 Oxygen Flow Rate (L/min) 1 Oxygen Delivery Method Nasal Cannula Weight: 210 lb Body Mass Index (BMI) 38.4 Finger Stick Blood Glucose 263 Laboratory Tests Past 24 Hrs POC Glucose POC Glucose 263 H Diagnostic Data Chest X-Ray 09/09/18 17:15 IMPRESSION: Possible right upper lobe infiltrate medially. Cardiomegaly. Electronically Signed: Rashaun Glasgow DO at 18:25 EST Tel [phone], Service support , Brain CT 09/09/18 17:17 IMPRESSION: Normal unenhanced CT scan of the brain. Electronically Signed: Kamari Andino MD at 18:08 EST , Service support , Assessment/Plan All Active Problems Toxic encephalopathy (Acute) Hypokalemia (Acute) Metabolic alkalosis (Acute) Abnormal nuclear stress test (Resolved) Bradycardia (Resolved) Pneumonia (Resolved) Septic shock (Resolved) Toxic encephalopathy (Resolved) 63-year-old female admitted with a complaint of fatigue and cough. 1. Acute metabolic encephalopathy due to pneumonia * patient very drowsy and lethargic; is confused but able to answer questions on arousal * CT head was negative * ABG done didnt show any elevated pCO2, ruling out CO2 narcosis * CXR showed right sided infiltrate * admit to pCU with telemetry * IVF NS @ 150cc/hr * give IV ceftriaxonea nd IV azithromycin for community acquired pneumonia * 2. Community acquired pneumonia * as under 1. * check respiratory panel 3. Acute renal insufficiency: Cr is 1.1. baseline is 0.8-0.9. Doesnt meet criteria for TITI. Will hydrate and monitor 4. Hypothyroidism: On Synthroid. 5. A. fib: * Heart rate was initially elevated on admission but is now controlled after being given a dose of IV cardizem * On metoprolol 100 mg twice daily and Eliquis. * 6. Anxiety: on buspar 7. GERD: on PPI 8. CAD: on aspirin, metoprolol and statin 9. COPD: on breathing treatments DVT prophylaxis: on eliquis * Code Visit Inpatient E AND M: 44241 Init Hosp L3 09/10/18 0354 <Electronically signed by Annamarie Andrews MD> Date Annamarie Andrews MD Cosigner Signature: Date (if applicable) CC: Bhupendra Oliveira MD; Annamarie Andrews MD Signed Observed: 09/10/2018 Status: F Source: KINJAL RESPIRATORY PANEL 2:45 AM [facility] MOLECULAR REPOSITORY RP PANEL ADENOVIRUS Not Detected HUMAN METAPHNEUMO Not Detected INFLUENZA A Not Detected INFLUENZA A (SUBTYPE H1) Not Detected INFLUENZA A (SUBTYPE H3) Not Detected INFLUENZA B Not Detected PARAINFLUENZA 1 Not Detected PARAINFLUENZA 2 Not Detected PARAINFLUENZA 3 Not Detected PARAINFLUENZA 4 Not Detected RHINOVIRUS Not Detected RSV A Not Detected RSV B Not Detected NAAT METHOD Testing was performed using nucleic acid amplification Performed By: #### M100.638 #### [facility] [address] [place], [address] BEDSIDE GLUCOSE Collected: 09/10/2018 Status: F Source: MEARS 2:01 AM [facility] REPOSITORY TYPE CODE TESTS RESULT OUT OF REFERENCE UNITS RANGE LAB L501.080 70-110 mg/dL High BEDSIDE GLU 188 Result Comment: MANAGEMENT OF PATIENT CARE PER NURSING PROTOCOL Performed By: #### L501.080 #### [facility] Point of Care [address] [facility] [place] [address] EMERGENCY DEPARTMENT Observed: 09/09/2018 Status: F Source: MEARS SUMMARY 11:37 PM [facility] REPOSITORY [facility] Medical Records Department [address] [place] [address] Emergency Department Summary 09/09/18 1744 MR#: [id number] Acct: [id number] Name: TAMIA PNADA Rep #: [id number] : 1955 63 From: Anju Gibson MD PCP: Bhupendra Oliveira MD Status: ADM IN - ER Visit Summary Date of Service: 09/09/18 Chief Complaint: [] Generalized weakness days History of Present Illness: The patient is a 63 F [] those symptoms for days the patient is a very vague historian she simply states she has whole body generalized fatigue she has had a cough for months, she is noted to have A. fib on the monitor she is not sure if she has that condition at baseline, she denies head neck chest or abdominal pain simply cannot function at home due to generalized fatigue no fever no cough she believes she has had normal bowel bladder habits Physical Examination: [] She appears sleepy but easily arousable her blood pressure is 115/75 her pulse ox is 97% 2 L nasal cannula, she is afebrile General, no distress resting comfortably HEENT is generally unremarkable The neck is supple no adenopathy Cardiovascular, irregular rate and rhythm, rate about 130 Lungs, clear bilateral Abdomen, soft nontender Extremities, no clubbing cyanosis or edema Neurologic, awake alert answering questions appropriately moving all 4 extremities she basically is hunched over from what appears to be scoliosis she is awake alert answering all questions Test Results: [] Emergency Department Course and Treatment: [] He is unclear she does have A. fib heart rate is about 130 Patient's chest x-ray per radiology shows appears to be a right-sided infiltrate pneumonia, the head CT and her labs are generally unremarkable see those reports at this time given all the above and A. fib RVR have asked the hospital see her further management admission Treatment Plan: [] Disposition: [] Admits stable Impression: [] Pneumonia, A. fib RVR, generalized weakness This note was generated with [employer] Media[employer] software. It may contain incorrect words, spelling, and punctuation that were not noted in review of the chart prior to signing ED Disposition - Plan for ED Patient: Chief Complaint: Weakness Referrals: Bhupendra Oliveira MD [Primary Care Provider] - What to do if you have Problems For any increased pain, shortness of breath, bleeding, nausea or vomiting, chest pain, or any unexpected problems, contact your Primary Care Provider. Call [facility] ([phone]) or report to the closest Emergency Room. Call 911 if necessary. 09/09/18 0226 <Electronically signed by Anju Gibson MD> Date Anju Gibson MD Cosigner Signature (If Indicated): Date CC: Bhupendra Oliveira MD BEDSIDE GLUCOSE Collected: 09/09/2018 Status: F Source: KINJAL 11:02 PM [facility] REPOSITORY TYPE CODE TESTS RESULT OUT OF REFERENCE UNITS RANGE LAB L501.080 70-110 mg/dL High BEDSIDE GLU 220 Result Comment: MANAGEMENT OF PATIENT CARE PER NURSING PROTOCOL Performed By: #### L501.080 #### [facility] Point of Care [address] [place] [address] URINALYSIS, COMPLETE Collected: 09/09/2018 Status: F Source: MEARS 6:49 PM [facility] REPOSITORY Order Comment: How was Urine Obtained? COUNTERSINKER TO SPECIFY TYPE CODE TESTS RESULT OUT OF RANGE REFERENCE UNITS LAB L400.3000 Yellow COLOR Normal Yellow LAB L400.3050 Clear Normal CLARITY Clear LAB L400.3200 Normal mg/dl Normal GLUCOSE, UR Normal LAB L400.3300 Negative mg/dL Normal BILIRUBIN URINE Negative LAB L400.3400 Negative mg/dl Normal KETONE UR Negative LAB L400.3465 1.002-1.030 Normal SP.GR. DIPSTX 1.010 LAB L400.3550 5.0 - 8.0 pH UR Normal 6.0 LAB L400.3600 Negative mg/dl PROT Normal DIPSTX Negative LAB L400.3700 Normal mg/dl Normal UROBILI Normal LAB L400.3750 Negative Normal NITRITE UR Negative LAB L400.3780 Negative /ul Normal OCCULT BLOOD-UR Negative LAB L400.3800 Negative /ul LEUK Normal ESTERASE Negative LAB L400.4050 0-5 /hpf WBC 0 Normal SEEN LAB L400.4100 0-5 /hpf 0 Normal RBC-UA SEEN LAB L400.4150 5-10 /hpf SQUAM 0 Normal EPI SEEN LAB L400.4300 None Seen /hpf 0 Normal BACTERIA SEEN LAB L400.4350 <or=2+ /hpf 0 Normal MUCUS, URINE SEEN Performed By: #### L400.0001 #### [facility] [address] [place], [place], [id number] BLOOD GASES BY CPS Collected: 09/09/2018 Status: F Source: MEARS 5:58 PM [facility] REPOSITORY TYPE CODE TESTS RESULT OUT OF RANGE REFERENCE UNITS LAB L9000.9990 Normal BLD GAS TYPE ART LAB L9001.1000 Normal SITE R Radial LAB L9001.1010 Normal SALO TEST POS LAB L9001.1050 O2 Normal Delivery Dev Nasal Can LAB L9001.1055 /min Normal LPM 1.0 LAB L9001.1104 Normal Results To ED LAB L9001.1105 Normal Time Given 1750 LAB L9001.1110 7.35-7.45 pH Normal - I-STAT 7.38 LAB L9001.1210 35-45 mmHg High pCO2 - ISTAT 54.7 LAB L9001.1310 75-100 mmHG Normal PO2 I-STAT 77 LAB L9001.2300 22-26 mmol/L High HCO3 ISTAT 32.6 LAB L9001.2400 -2 to +2 mmol/L High BE ISTAT 8 LAB L9001.2415 mmol/L Normal TOTAL CO2 34 ISTAT LAB L9001.2425 95-99 % Normal SO2 ISTAT 95 Performed By: #### L9000.0800 #### [facility] Point of Care [address] [place] [address] BRAIN/HEAD WITHOUT Observed: 09/09/2018 Status: F Source: MEARS CONTRAST 5:17 PM [facility] REPOSITORY [facility] Imaging Services [address] [place] [address] Brain/Head without Contrast MR#: [id number] Acct: [id number] Name: TAMIA PANDA Rep #: [id number] : 1955 F 63 From: Kamari Andino MD PCP: Bhupendra Oliveira MD Status: PRE ER Study: Brain/Head without Contrast Date of Exam: 09/09/18 Exam# [id number] Ordering Dr: Anju Gibson MD STUDY: CT BRAIN WITHOUT CONTRAST REASON FOR EXAM: Female, 63 years old. Altered mental status RADIATION DOSAGE (If Supplied By Facility): CTDIvol = ( 44.99 ) mGy, DLP = ( 745.49 ) mGycm TECHNIQUE: Transaxial CT imaging of the brain was performed without administration of intravenous contrast material. Individualized dose optimization techniques were used for this CT. COMPARISON: CT and CTA head September 02, 2018 and MR brain September 03, 2018 FINDINGS: Normal soft tissue structures. Normal calvarium. Normal size ventricles and extra-axial spaces for the patient's age. Normal white matter tracts of the cerebral hemispheres. Normal basal ganglia and thalami. Normal brainstem. Normal cerebellum. Disconjugate gaze. Bilateral lens implants. There is no intracranial hemorrhage. There are no findings of an acute ischemic infarction. Normal visualized paranasal sinuses. CT/Brain/Head without Contrast IMPRESSION: Normal unenhanced CT scan of the brain. Electronically Signed: Kamari Andino MD at 18:08 EST , Service support , CC: MD Eder Gibson; Bhupendra Oliveira MD Pipe Recovery Specialist: Signed CHEST 1 VIEW Observed: 09/09/2018 Status: F Source: KINJAL (PORTABLE) 5:17 PM [facility] REPOSITORY [facility] Imaging Services [address] [place] [id number] Chest 1 View (Portable) MR#: [id number] Acct: [id number] Name: TAMIA PANDA Rep #: [id number] : 1955 F 63 From: Rashaun Glasgow DO PCP: Bhupendra Oliveira MD Status: REG ER Study: Chest 1 View (Portable) Date of Exam: 09/09/18 Exam# [id number] Ordering Dr: Anju Gibson MD STUDY: X-RAY CHEST REASON FOR EXAM: Female, 63 years old. Weakness TECHNIQUE: Frontal views COMPARISON: September 02, 2018 FINDINGS: The lungs are not fully expanded. There is a right upper lobe medial opacity. An infiltrate cannot be excluded.. Cardiomegaly. Normal mediastinum and tracie. Normal visualized pulmonary arteries. Normal visualized aortic arch and descending thoracic aorta. Degenerative changes of the thoracic spine. Normal visualized ribs, clavicles, and shoulders. There is no demonstrated abnormality of the visualized soft tissue structures of the upper abdomen. RAD/Chest 1 View (Portable) IMPRESSION: Possible right upper lobe infiltrate medially. Cardiomegaly. Electronically Signed: Rashaun Glasgow DO at 18:25 EST Tel [phone], Service support , CC: MD Eder Gibson; Bhupendra Oliveira MD Pipe Recovery Specialist: Signed CBC W/DIFF, AUTOMATED Collected: 09/09/2018 Status: F Source: MEARS 5:15 PM [facility] REPOSITORY TYPE CODE TESTS RESULT OUT OF RANGE REFERENCE UNITS LAB L100.1000 4.4-11.0 K/mm3 Normal WBC 5.5 LAB L100.1200 4.2-5.4 M/mm3 Normal RBC 4.57 LAB L100.1300 12.0-15.0 g/dl Normal HGB 13.0 LAB L100.1400 37-47 % Normal HCT 42.0 LAB L100.1500 81-99 fL Normal MCV 91.9 LAB L100.1600 27.0-32.0 pg Normal MCH 28.4 LAB L100.1700 32-36 g/gl Low MCHC 31.0 LAB L100.1810 11.6-14.6 % High RDW CV 16.4 LAB L100.1820 35.1-43.9 fl High RDW SD 54.8 LAB L100.1900 150-450 K/mm3 Normal PLT 205 LAB L100.2000 6.2-12.0 fl Normal MPV 10.7 LAB L100.2100 47-70 % Normal NEUT% 58.7 LAB L100.2200 19-41 % Normal LY% 25.9 LAB L100.2300 0-10 % Normal MONO% 9.7 LAB L100.2400 0-5 % High EO% 5.3 LAB L100.2500 0-1 % Normal BASO% 0.4 LAB L100.2550 0.0-0.9 % Normal IM GRAN % 0.000 Result Comment: IG% - Immature Granulocytes (promyelocytes, myelocytes and metamyelocytes) > 1% indicates that a LEFT SHIFT is Present. LAB L100.2620 2.0-7.7 X10 3/uL Normal Absolute Neut 3.2 LAB L100.2720 0.83-4.51 X10 3/ul Normal Absolute Lymph 1.42 Performed By: #### L100.0100 #### [facility] [address] [place], [address] BASIC METABOLIC Collected: 09/09/2018 Status: F Source: MEARS PROFILE (BMP) 5:15 PM [facility] REPOSITORY TYPE CODE TESTS RESULT OUT OF RANGE REFERENCE UNITS LAB L501.0100 74-106 mg/dL High GLU 253 Result Comment: Glucose result greater than or equal to 200 mg/dL suggests DIABETES MELLITUS per A.D.A. criteria. Please note revised GLUCOSE reference range effective 2017. LAB L501.1000 7-18 mg/dL High BUN 19 LAB L501.1100 0.55-1.02 mg/dL High CREAT,SERUM 1.10 Result Comment: The validity of the calculated GFR AND GFRAA in patients over 70 years has not been determined. Clinical correlation is essential. LAB L501.1110 >60 mL/min Low EST GFR 53 Result Comment: Non- GFR Calc LAB L501.1115 >60 mL/min Normal EST GFR - AA 64 Result Comment: GFR Calc LAB L501.1255 ml/min Normal Estimated CRCL 41.40 LAB L501.1300 10-20 RATIO Normal BUN/CRE 17.3 LAB L501.2200 8.5-10 mg/dL Normal .1 CA 8.7 LAB L501.5300 136-14 mmol/L Normal 5 NA 138 LAB L501.5600 3.5-5. mmol/L Normal 1 K 3.7 LAB L501.5900 98-107 mmol/L Normal CL 100 LAB L501.6100 21.0-3 mmol/L Normal 2.0 CO2 32.0 LAB L501.6200 5-15 Normal GAP 6 Performed By: #### L500.2500, L501.2450, L501.4010 #### [facility] [address] [place], [place], [address] LIPASE Collected: 09/09/2018 Status: F Source: MEARS 5:15 PM [facility] REPOSITORY TYPE CODE TESTS RESULT OUT OF REFERENCE UNITS RANGE LAB L501.2450 73-393 U/L Low LIPASE 51 Performed By: #### L500.2500, L501.2450, L501.4010 #### [facility] [address] [place], [address] TROPONIN-I Collected: 09/09/2018 Status: F Source: KINJAL 5:15 PM [facility] REPOSITORY TYPE CODE TESTS RESULT OUT OF RANGE REFERENCE UNITS LAB L501.4010 <0.045 ng/mL Normal < 0.015 TROPONIN-I Result Comment: TROPONIN-I EXPECTED VALUES <0.045 Negative 0.045 - 0.590 Consistent with Cardiac Damage > OR = 0.600 Critical Value Not every elevated troponin is indicative of DC. These values should be used with clinical judgement in examining the patient's clinical picture for diagnosis. To establish a diagnosis of DC versus myocardial injury, there must be a demonstrated rise and/or fall in the troponin values, in addition to ischemic symptoms, EKG changes, new regional wall motion abnormality, and/or angiographical evidence. PLEASE NOTE: REFERENCE RANGES EDITED 18 Performed By: #### L500.2500, L501.2450, L501.4010 #### [facility] [address] [facility] [address] [facility] [place], [address] LIVER PROFILE Collected: 09/09/2018 Status: F Source: KINJAL 5:15 PM [facility] REPOSITORY TYPE CODE TESTS RESULT OUT OF RANGE REFERENCE UNITS LAB L501.1500 6.4-8.2 g/dL Normal T PROT 7.3 LAB L501.1800 3.2-5.0 g/dL Normal ALB 3.3 LAB L501.1950 2.2-4.2 g/dL Normal GLOB 4.0 LAB L501.4100 15-37 U/L Normal AST 23 LAB L501.4305 45-117 U/L Normal ALK P 59 LAB L501.4405 13-56 U/L Normal ALT 21 LAB L501.4600 0.20-1.00 mg/dL Normal T BILI 0.90 LAB L501.4700 0.00-0.30 mg/dL Normal D BILI 0.23 Performed By: #### L500.3400 #### [facility] [address] [place], [address] BNP,B-TYPE NATRIURETIC Collected: 09/09/2018 Status: F Source: KINJAL PEPTIDE 5:15 PM [facility] REPOSITORY TYPE CODE TESTS RESULT OUT OF RANGE REFERENCE UNITS LAB L503.6620 0-100 pg/mL High B-TYPE 124.8 STONEY PEP Performed By: #### L503.6620 #### [facility] [address] [place], [address] BEDSIDE GLUCOSE Collected: 09/09/2018 Status: F Source: MEARS 5:00 PM [facility] REPOSITORY TYPE CODE TESTS RESULT OUT OF REFERENCE UNITS RANGE LAB L501.080 70-110 mg/dL High BEDSIDE GLU 263 Result Comment: MANAGEMENT OF PATIENT CARE PER NURSING PROTOCOL Performed By: #### L501.080 #### [facility] Point of Care [address] [place] [address] CNPN Observed: 09/08/2018 Status: COMPLETED Source: RUSSELL 12:00 AM [facility] REPOSITORY Telephone (FAMPWS) TAMIA PANDA ([id number]) 1955 F Date Time Provider Department 09/08/18 NANDA OLIVEIRA) FAMPWS During your visit today, we recorded the following information about you: Ashley Flores, RN, RN 09/08/2018 9:30 AM Signed HH nurse calling to report that the pt had high blood sugars yesterday and the nurse advised the pt to got to ER. Pt was AANDO x3 VS were stable . Only C/O was profuse sweating, and pt was cool and clammy. Pt's blood sugar in the am 466 and pt took 20 units of Humalog. Then at noon pt blood sugar was 559 and pt took 30 more units of Humalog, and @ 1pm blood sugar was 384 and pt took another 24 units of Humalog. The nurse arrived to the pt home around 1:20 pm and advised the pt not to take anymore insulin because nurse was concerned that the blood sugar would bottom out. Before nurse left she had pt to recheck blood sugar @ that time it 248. HH nurse also want to report that the pt had a skin tear to rt third toe. Nurse thinks the pt needs a podiatry consult to have her toe nails clipped. Nanda Oliveira MD 09/08/2018 3:34 PM Signed Referral order placed. Patient admitted to eating high carb diet yesterday, what are sugars today? Still feeling sweaty and clammy? Clayton Serna Ma 09/08/2018 5:14 PM Signed No contact number left for nurse - TC to patient This AM [phone] No longer feeling sweaty and clammy 261 Allergies As of Date: 09/08/2018 Noted Allergy Reaction ADHESIVE TAPE (ROSINS) 04/04/2015 5 - Intolerance Comments: Surgical tape leaves rash Irritates skin badly and blisters along with medical tape CATS 04/10/2016 14 - Other: See Comments Comments: Congested and itchy, difficulty breathing DOGS 04/10/2016 14 - Other: See Comments Comments: Congestion, sneezing, and difficulty breathing ORPHENADRINE 04/10/2016 16 - Unknown CAPSAICIN 03/02/2018 9 - Itching CIPROFLOXACIN 12/11/2011 14 - Other: See Comments Comments: Red, hot, itchy rash KEFLEX (CEPHALEXIN) 07/10/2016 4 - Hives Comments: Negative skin testing and successful completion of an oral amoxicillin challenge was completed on 03/02/2018. Cephalexin shares an almost identical R1 side chain to amoxicillin; therefore, it is unlikely that she would be at elevated risk for developing an IgE-mediated reaction (allergic/anaphylactic). If she should need this medication in the future, I would recommend giving the first dose in a supervised medical setting. If no reaction after 30 minutes, proceed with regular dosing. NIACIN 04/04/2015 16 - Unknown Comments: Pt states its niacin its niaspan REGLAN (METOCLOPRAMIDE HCL) 03/04/2017 14 - Other: See Comments Comments: Unable to sleep XANTHINES 10/18/2004 16 - Unknown ZOFRAN (ONDANSETRON HCL (PF)) 02/03/2018 9 - Itching Date Reviewed: 08/17/2018 Reviewed by: Clayton Serna Ma - Fully Assessed Reason for Visit: Patient Update [1234] Primary Visit Diagnosis:Type 2 diabetes mellitus with diabetic neuropathy, with long-term current use of insulin ([facility]) [E11.40, Z79.4] Order(s):CONSULT TO PODIATRY [7691] Order #: [id number]: 1 Prescriptions as of 09/08/2018 Sig: ALBUTEROL SULFATE HFA 90 MCG/* Inhale 2 Puffs as instructed * ALCOHOL SWABS UAD to clean skin before test* ASPIRIN 81 MG TABLET,DELAYED * TAKE 1 TABLET BY MOUTH EVERY * ATORVASTATIN 40 MG TABLET TAKE 1 TABLET BY MOUTH DAILY BIPAP Bilevel PAP 16/12 cmH2O with * COMPOUNDED PRESCRIPTION BLOOD PRESSURE CUFF FOR HOME * BLOOD-GLUCOSE METER KIT UAD to test blood sugar BUSPIRONE 7.5 MG TABLET TAKE 1 TABLET BY MOUTH TWICE * CAPSAICIN 0.075 % TOPICAL CRE* Apply 1 application to affect* COMPOUNDED PRESCRIPTION Evaluation for diabetic shoes* COMPOUNDED PRESCRIPTION OCD Titration for portable ox* COMPOUNDED PRESCRIPTION Please fit for BiPAP mask. DILTIAZEM SR 180 MG 24 HR CAP TAKE 1 CAPSULE BY MOUTH EVERY* DULOXETINE 60 MG CAPSULE,MARIA EUGENIA* TAKE 1 CAPSULE BY MOUTH DAILY ELIQUIS 2.5 MG TABLET TAKE 1 TABLET BY MOUTH TWICE * ESTRADIOL 0.01% (0.1 MG/GRAM)* Apply pea-sized amount to per* FERROUS GLUCONATE 324 MG (38 * TAKE 1 TABLET BY MOUTH DAILY * FLUTICASONE 50 MCG/ACTUATION * Use 2 Sprays in each nostril * FUROSEMIDE 40 MG TABLET Take 1 tablet by mouth twice * CLAUDIA-KYLE 8.6 MG TABLET TAKE 1 TABLET BY MOUTH TWICE * GLUCOSE 4 GRAM CHEWABLE TABLET Take 4 tablets by mouth as ne* GLUCOSE 4 GRAM CHEWABLE TABLET TAKE 4 TABLETS BY MOUTH NE* IBUPROFEN 200 MG TABLET Take 200 mg by mouth every 6 * INCONTINENCE PAD, LINER, DISP* 1 Device as needed (urinary i* INSULIN GLARGINE (U-100) 100 * Inject 36 units subcutaneousl* INSULIN LISPRO (U-200) 200 UN* Inject subcutaneously 14 unit* ISOSORBIDE MONONITRATE ER 60 * TAKE 1 AND 1/2 TABLETS BY MOUTH* LANTUS SOLOSTAR U-100 INSULIN* INJECT 56 UNITS SUBCUTANEOUSL* LEVOTHYROXINE 100 MCG TABLET TAKE 1 TABLET BY MOUTH EVERY * LYRICA 100 MG CAPSULE TAKE 1 CAPSULE BY MOUTH THREE* METFORMIN ER 500 MG TABLET,EX* TAKE 2 TABLETS BY MOUTH TWICE* METOPROLOL TARTRATE 100 MG TA* TAKE 1 TABLET BY MOUTH TWICE * NITROGLYCERIN 0.4 MG SUBLINGU* DISSOLVE 1 TAB UNDER THE TONG* OMEPRAZOLE 20 MG CAPSULE,MARIA EUGENIA* TAKE 1 CAPSULE BY MOUTH EVERY* ONETOUCH DELICA LANCETS 30 GA* USE TO CHECK BLOOD SUGAR 4-5 * ONETOUCH ULTRA BLUE TEST STRIP USE DIRECTED TO CHECK BLOO* OXYGEN (HOME THERAPY) Inhale 3 L/min as instructed * PROMETHAZINE 25 MG TABLET Take 1 tablet by mouth every * PSEUDOEPHEDRINE-GUAIFENESIN E* Take 1 tablet by mouth twice * STOOL SOFTENER 100 MG CAPSULE TAKE 1 CAPSULE BY MOUTH DAILY ULTICARE PEN NEEDLE 31 GAUGE * USE DIRECTED. TO INJECT IN* VITAMIN C 500 MG TABLET TAKE 1 TABLET BY MOUTH DAILY Problem List As Of Date 09/08/2018 Noted Resolved SUBJECTIVE TINNITUS [H93.19] INVALID FOR* PARESH treated with BiPAP [G47.33] INVALID FOR* Hyperlipidemia [E78.5] INVALID FOR* Coronary disease [I25.10] INVALID FOR* Diabetes mellitus, type II ([facility]) [E11.9] INVALID FOR* Morbid obesity ([facility]) [E66.01] Hypothyroidism [E03.9] Anxiety [F41.9] Sleep apnea [G47.30] 02/14/2017 Essential hypertension [I10] Coronary artery disease of [place] lions artery of stoney* AF (paroxysmal atrial fibrillation) ([facility]) [I48.* COPD (chronic obstructive pulmonary disease) (H* GERD without esophagitis [K21.9] Dysphagia [R13.10] Constipation [K59.00] DM type 2 (diabetes mellitus, type 2) ([facility]) [E1* 02/14/2017 Shortness of breath [R06.02] 02/14/2017 Arthritis [M19.90] More... CHF (congestive heart failure) ([facility]) [I50.9] BPPV (benign paroxysmal positional vertigo) [H8*INVALID FOR* RLS (restless legs syndrome) [G25.81] INVALID FOR* Iron deficiency concern: RE RLS [E61.1] INVALID FOR* Tubular adenoma [D36.9] INVALID FOR* Incontinence [R32] More... Gastroparesis [K31.84] INVALID FOR* Pre-op testing [Z01.818] INVALID FOR* More... Hypercapnia [R06.89] INVALID FOR* S/P coronary artery stent placement [Z95.5] INVALID FOR* Stage 3 chronic kidney disease [N18.3] INVALID FOR* Depression [F32.9] INVALID FOR* Obesity, Class II, BMI 35-39.9 [E66.9] INVALID FOR* Encounter Status:Closed by SAAD SILVESTRE on 09/09/18 PROGRESS Observed: 09/07/2018 Status: COMPLETED Source: RUSSELL 9:41 PM [facility] REPOSITORY HNO ID: [id number] Author: Nanda Rodriguez) Brian Service: (none) Author Type: Physician Type: Progress Notes Filed: 09/07/2018 9:42 PM Note Text: Reviewed and agree with avoidance of high sugar/carb diet. Will discuss at length at upcoming OV. PROGRESS Observed: 09/07/2018 Status: COMPLETED Source: RUSSELL 11:53 AM [facility] REPOSITORY HNO ID: [id number] Author: Saad Allen) Larry Service: (none) Author Type: Registered Nurse Type: Progress Notes Filed: 09/07/2018 5:20 PM Note Text: TRANSITION CARE MANAGEMENT (TCM) FOLLOW-UP NOTE Provider Action/FYI FBS today 466 Eating high carb. Strongly encourage to follow healthy diet Wt 210 today and 209 yesterday Hospital F/U appt scheduled for 09/09 Patient identified by name and date of : YES Spoke to patient Summary: Pt's BS this morning was 466 States she knows why it is so high. Ate ham sandwich, Cheetos, non-diet grape pop and 3 [employer] Peanut candies. Discussed need to follow diabetic diet and she is eating high carb foods, pt verbalized understanding but said her weakness is her sweet tooth. Wt 210 this morning and 209 yesterday. 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 Strongly encourage to follow healthy diet Wt 210 today and 209 yesterday Hospital F/U appt scheduled for 09/09 Patient identified by name and date of : YES Spoke to patient Summary: Pt's BS this morning was 466 States she knows why it is so high. Ate ham sandwich, Cheetos, non-diet grape pop and 3 [employer] Peanut candies. Discussed need to follow diabetic diet and she is eating high carb foods, pt verbalized understanding but said her weakness is her sweet tooth. Wt 210 this morning and 209 yesterday. 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 Will discuss at length at upcoming OV. Allergies As of Date: 09/07/2018 Noted Allergy Reaction ADHESIVE TAPE (ROSINS) 04/04/2015 5 - Intolerance Comments: Surgical tape leaves rash Irritates skin badly and blisters along with medical tape CATS 04/10/2016 14 - Other: See Comments Comments: Congested and itchy, difficulty breathing DOGS 04/10/2016 14 - Other: See Comments Comments: Congestion, sneezing, and difficulty breathing ORPHENADRINE 04/10/2016 16 - Unknown CAPSAICIN 03/02/2018 9 - Itching CIPROFLOXACIN 12/11/2011 14 - Other: See Comments Comments: Red, hot, itchy rash KEFLEX (CEPHALEXIN) 07/10/2016 4 - Hives Comments: Negative skin testing and successful completion of an oral amoxicillin challenge was completed on 03/02/2018. Cephalexin shares an almost identical R1 side chain to amoxicillin; therefore, it is unlikely that she would be at elevated risk for developing an IgE-mediated reaction (allergic/anaphylactic). If she should need this medication in the future, I would recommend giving the first dose in a supervised medical setting. If no reaction after 30 minutes, proceed with regular dosing. NIACIN 04/04/2015 16 - Unknown Comments: Pt states its niacin its niaspan REGLAN (METOCLOPRAMIDE HCL) 03/04/2017 14 - Other: See Comments Comments: Unable to sleep XANTHINES 10/18/2004 16 - Unknown ZOFRAN (ONDANSETRON HCL (PF)) 02/03/2018 9 - Itching Date Reviewed: 08/17/2018 Reviewed by: Clayton Serna Ma - Fully Assessed Reason for Visit: [facility] Follow Up [9191] Prescriptions as of 09/07/2018 Sig: ALBUTEROL SULFATE HFA 90 MCG/* Inhale 2 Puffs as instructed * ALCOHOL SWABS UAD to clean skin before test* ASPIRIN 81 MG TABLET,DELAYED * TAKE 1 TABLET BY MOUTH EVERY * ATORVASTATIN 40 MG TABLET TAKE 1 TABLET BY MOUTH DAILY BIPAP Bilevel PAP 16/12 cmH2O with * COMPOUNDED PRESCRIPTION BLOOD PRESSURE CUFF FOR HOME * BLOOD-GLUCOSE METER KIT UAD to test blood sugar BUSPIRONE 7.5 MG TABLET TAKE 1 TABLET BY MOUTH TWICE * CAPSAICIN 0.075 % TOPICAL CRE* Apply 1 application to affect* COMPOUNDED PRESCRIPTION Evaluation for diabetic shoes* COMPOUNDED PRESCRIPTION OCD Titration for portable ox* COMPOUNDED PRESCRIPTION Please fit for BiPAP mask. DILTIAZEM SR 180 MG 24 HR CAP TAKE 1 CAPSULE BY MOUTH EVERY* DULOXETINE 60 MG CAPSULE,MARIA EUGENIA* TAKE 1 CAPSULE BY MOUTH DAILY ELIQUIS 2.5 MG TABLET TAKE 1 TABLET BY MOUTH TWICE * ESTRADIOL 0.01% (0.1 MG/GRAM)* Apply pea-sized amount to per* FERROUS GLUCONATE 324 MG (38 * TAKE 1 TABLET BY MOUTH DAILY * FLUTICASONE 50 MCG/ACTUATION * Use 2 Sprays in each nostril * FUROSEMIDE 40 MG TABLET Take 1 tablet by mouth twice * CLAUDIA-KYLE 8.6 MG TABLET TAKE 1 TABLET BY MOUTH TWICE * GLUCOSE 4 GRAM CHEWABLE TABLET Take 4 tablets by mouth as ne* GLUCOSE 4 GRAM CHEWABLE TABLET TAKE 4 TABLETS BY MOUTH NE* IBUPROFEN 200 MG TABLET Take 200 mg by mouth every 6 * INCONTINENCE PAD, LINER, DISP* 1 Device as needed (urinary i* INSULIN GLARGINE (U-100) 100 * Inject 36 units subcutaneousl* INSULIN LISPRO (U-200) 200 UN* Inject subcutaneously 14 unit* ISOSORBIDE MONONITRATE ER 60 * TAKE 1 AND 1/2 TABLETS BY MOUTH* LANTUS SOLOSTAR U-100 INSULIN* INJECT 56 UNITS SUBCUTANEOUSL* LEVOTHYROXINE 100 MCG TABLET TAKE 1 TABLET BY MOUTH EVERY * LYRICA 100 MG CAPSULE TAKE 1 CAPSULE BY MOUTH THREE* METFORMIN ER 500 MG TABLET,EX* TAKE 2 TABLETS BY MOUTH TWICE* METOPROLOL TARTRATE 100 MG TA* TAKE 1 TABLET BY MOUTH TWICE * NITROGLYCERIN 0.4 MG SUBLINGU* DISSOLVE 1 TAB UNDER THE TONG* OMEPRAZOLE 20 MG CAPSULE,MARIA EUGENIA* TAKE 1 CAPSULE BY MOUTH EVERY* ONETOUCH DELICA LANCETS 30 GA* USE TO CHECK BLOOD SUGAR 4-5 * ONETOUCH ULTRA BLUE TEST STRIP USE DIRECTED TO CHECK BLOO* OXYGEN (HOME THERAPY) Inhale 3 L/min as instructed * PROMETHAZINE 25 MG TABLET Take 1 tablet by mouth every * PSEUDOEPHEDRINE-GUAIFENESIN E* Take 1 tablet by mouth twice * STOOL SOFTENER 100 MG CAPSULE TAKE 1 CAPSULE BY MOUTH DAILY ULTICARE PEN NEEDLE 31 GAUGE * USE DIRECTED. TO INJECT IN* VITAMIN C 500 MG TABLET TAKE 1 TABLET BY MOUTH DAILY Problem List As Of Date 09/07/2018 Noted Resolved SUBJECTIVE TINNITUS [H93.19] INVALID FOR* PARESH treated with BiPAP [G47.33] INVALID FOR* Hyperlipidemia [E78.5] INVALID FOR* Coronary disease [I25.10] INVALID FOR* Diabetes mellitus, type II ([facility]) [E11.9] INVALID FOR* Morbid obesity ([facility]) [E66.01] Hypothyroidism [E03.9] Anxiety [F41.9] Sleep apnea [G47.30] 02/14/2017 Essential hypertension [I10] Coronary artery disease of [place] lions artery of stoney* AF (paroxysmal atrial fibrillation) ([facility]) [I48.* COPD (chronic obstructive pulmonary disease) (H* GERD without esophagitis [K21.9] Dysphagia [R13.10] Constipation [K59.00] DM type 2 (diabetes mellitus, type 2) ([facility]) [E1* 02/14/2017 Shortness of breath [R06.02] 02/14/2017 Arthritis [M19.90] More... CHF (congestive heart failure) ([facility]) [I50.9] BPPV (benign paroxysmal positional vertigo) [H8*INVALID FOR* RLS (restless legs syndrome) [G25.81] INVALID FOR* Iron deficiency concern: RE RLS [E61.1] INVALID FOR* Tubular adenoma [D36.9] INVALID FOR* Incontinence [R32] More... Gastroparesis [K31.84] INVALID FOR* Pre-op testing [Z01.818] INVALID FOR* More... Hypercapnia [R06.89] INVALID FOR* S/P coronary artery stent placement [Z95.5] INVALID FOR* Stage 3 chronic kidney disease [N18.3] INVALID FOR* Depression [F32.9] INVALID FOR* Obesity, Class II, BMI 35-39.9 [E66.9] INVALID FOR* Encounter Status:Closed by SAAD SILVESTRE on 09/08/18 CONSULTATION Observed: 09/05/2018 Status: F Source: MEARS 10:06 AM [facility] REPOSITORY [facility] Medical Records Department [address] [place] [address] Consultation 09/02/18 1635 MR#: [id number] Acct: [id number] Name: TAMIA PANDA Rep #: [id number] : 1955 63 From: Ricardo Kamara MD PCP: Bhupendra Oliveira MD Status: DIS NICOLE Y Location: [place] [address] Reason for Consult Date of Consultation: 09/02/18 Reason for Consultation: Stroke team History of Present Illness: The patient is a 63 year old female with history of similar symptoms according to her sons who are present in the emergency department. She apparently was normal this morning, and at about 12 PM, his son noted lethargy. The squad was called and she presented to the emergency department. CT was obtained which I reviewed concurrently in the emergency department CT scanner, which did not show anything acute. CTA was also performed which appeared normal. The patient denies any pain. She is lethargic but arouses to voice and answers questions. She is on Eliquis for atrial fibrillation and says she took her dose this morning and has not missed any doses. Past Medical History Past Medical History (Chronic Problems): Chronic Problems Paroxysmal A-fib (Chronic) Diabetes mellitus type 2 in obese (Chronic) Coronary arteriosclerosis (Chronic) cath 05/2015 mild-moderate disease medical therapy recommended Hypothyroidism (Chronic) Hyperlipemia (Chronic) GERD (gastroesophageal reflux disease) (Chronic) Hypertension (Chronic) COPD (chronic obstructive pulmonary disease) (Chronic) Chronic respiratory insufficiency (Chronic) On home oxygen at night S/P PTCA (percutaneous transluminal coronary angioplasty) (Chronic) PARESH (obstructive sleep apnea) (Chronic) Allergies ciprofloxacin [From Cipro] Allergy (Verified 07/25/18 06:11) Hives latex Allergy (Verified 07/25/18 06:11) matos me niacin [From Niaspan Extended-Release] Allergy (Verified 07/25/18 06:11) Hives ondansetron [From Zofran] Allergy (Verified 07/25/18 06:11) Unknown Xanthines Allergy (Verified 07/25/18 06:11) Unknown orphenadrine citrate [From Norgesic] Adverse Reaction (Verified 07/25/18 06:11) groggy medical tape Adverse Reaction (Uncoded 07/25/18 06:11) blisters Home Medications: Ambulatory Orders Medication Instructions Recorded Surgical History: angioplasty, cholecystectomy, herniorrhaphy, hysterectomy, - - tubal ligation. Psychiatric History: No pertinent psych hx LOG CUT OFF SAWYER History: No pertinent LOG CUT OFF SAWYER history Smoking Status: Former smoker - *Family History Sibling History Items: COPD - in sister. Maternal History Items: No pertinent history Paternal History Items: Heart Disease, Stroke - age 62 Offspring History Items: No pertinent history - 5 children, 32 grand children and great grandchildren Review of Systems Constitutional: Denies: Chills, Fever, Weight Change HEENT: Denies: Head Aches, Sinus Congestion, Sinus Drainage Cardiovascular: Denies: Chest Pain, Palpitations Respiratory: Denies: Cough, Shortness of breath at rest, Sputum production Gastrointestinal: Denies: Abdominal Pain, Nausea, Vomiting Genitourinary: Denies: Dysuria Musculoskeletal: Denies: Joint Pain, Joint Tenderness Skin: Denies: Rash, Wounds Neurological: Denies: Numbness, Tingling, Focal weakness Psychiatric: Denies: Anxiety, Depression, Homicidal Ideations, Suicidal Ideations Hematologic/ Lymphatic: Denies: Easy Bruising, Easy Bleeding Objective: On neurologic examination she is alert lethargic but arouses to voice. Cranial nerves are intact Speech and language is intact There is no drift Strength is intact Sensation is intact - Physical Exam Vital Signs Temp Pulse Resp BP Pulse Ox 36.1 C L 87 18 108/77 99 09/02/18 14:26 09/02/18 16:17 09/02/18 16:17 09/02/18 16:17 09/02/18 16:17 Oxygen Flow Rate (L/min) 2 Oxygen Delivery Method Room Air Weight: 99.2 kg Body Mass Index (BMI) 38.7 Finger Stick Blood Glucose 169 Laboratory Tests Past 24 Hrs POC Glucose POC Glucose 169 H He was reviewed concurrently with its performance at the time that the CT was performed in the CT scanner, there is nothing acute. The CT of the brain appears normal. CTA was also reviewed which appears normal. Assessment/Plan All Active Problems Toxic encephalopathy (Acute) Bradycardia (Acute) Abnormal nuclear stress test (Resolved) Pneumonia (Resolved) Septic shock (Resolved) Impression: Encephalopathy unclear cause. This does not appear to be stroke due to nonfocal symptoms. She is not a TPA candidate additionally the patient is on Eliquis and took her dose this morning for atrial fibrillation. She should be admitted for further workup including MRI and other causes of encephalopathy. 09/05/18 1006 <Electronically signed by Ricardo Kamara MD> Date Ricardo Kamara MD Cosigner Signature (if applicable): Date CC: Anna Sharif; Bhupendra Oliveira MD Signed PROGRESS Observed: 09/04/2018 Status: COMPLETED Source: RUSSELL 3:41 PM [facility] [place] REPOSITORY [facility] ID: [id number] Author: Nanda Rodriguez) Brian Service: (none) Author Type: Physician Type: Progress Notes Filed: 09/04/2018 3:41 PM Note Text: Reviewed. PROGRESS Observed: 09/04/2018 Status: COMPLETED Source: RUSSELL 3:19 PM [facility] [place] REPOSITORY [facility] ID: [id number] Author: Saad (Nina) Larry Service: (none) Author Type: Registered Nurse Type: Progress Notes Filed: 09/04/2018 3:25 PM Note Text: TRANSITION CARE MANAGEMENT (TCM) INITIAL CONTACT Provider Action/FYI: NOT A TCM Patient stopped Lyrica Feeling good except very tired Initial contact with patient post discharge, spoke to patient. Patient identified by name and . TRANSITION CARE MANAGEMENT: No flowsheet data found. SUMMARY: -Pt discharged from [facility] on 09/03. -Follow up appointment on TBD, pt will call back. -Medication review done No. -Admitted for: Toxic encephalopathy (Acute) Hypokalemia (Acute) Metabolic alkalosis (Acute) CONCERNS: Pt states she is feeling good except very tired. [facility] nurse visited today and did A1C fingerstick which was 6. NEW MEDICATIONS: None MEDS HELD/DISCONTINUED: LYRICA 100 mg TAKE 1 CAPSULE BY MOUTH THREE TIMES A DAY BRIEF HOSPITAL COURSE: COPIED FROM [facility] MEDITECH: The patient is a 63 year old F presents after being found confused at home. Brought into the hospital underwent extensive workup, including MRI of the brain. Workup came back unremarkable. As per previous admissions, is felt to be toxic encephalopathy possibly related with the Lyrica. Lyrica was recommended discontinued last time she was here but patient is continued to take that. Once again his recommend the patient discontinued the Lyrica. Patient's mental status is back to baseline. To F/U with PCP in 2 weeks Saad Silvestre RN September 04, 2018 3:24 PM 12 LEAD ELECTROCARDIOGRAM Observed: 09/04/2018 Status: F Source: MEARS 9:14 AM [facility] [place] REPOSITORY [facility] Cardiovascular Services [address] [place] [address] 12 Lead EKG 09/02/18 1506 MR#: [id number] Acct: [id number] Name: TAMIA PANDA Rep #: [id number] : 1955 63 From: Bart Blas MD Attending Dr: Zuhair Cohn DO Status: DIS NICOLE Ordering Dr: Anju Gibson MD Date: 09/02/18 Location: [facility] Sex: F C Admitted: 09/02/18 Test Reason : STROKE PRECAUTION Blood Pressure : / mmHG Vent. Rate : 073 BPM Atrial Rate : 068 BPM P-R Int : 000 ms QRS Dur : 094 ms QT Int : 426 ms P-R-T Axes : 000 -19 178 degrees QTc Int : 469 ms Atrial fibrillation Left ventricular hypertrophy with repolarization abnormality Abnormal ECG Confirmed by BART BLAS MD ([id number]), senior technical editor SHYANNE TERRAZAS ([id number]) on 09/04/2018 9:13:49 AM Referred By: Cindi Sharif Confirmed By:BART BLAS MD 09/04/18912 Date Bart Blas MD CC: MD Eder Tseayyeeileen; Anna Sharif; Bhupendra Oliveira MD; Zuhair Cohn DO Signed [facility] Observed: 09/04/2018 Status: COMPLETED Source: RUSSELL 12:00 AM [facility] REPOSITORY Patient Outreach (FAMPWS) TAMIA PANDA ([id number]) 1955 F Date Time Provider Department 09/04/18 SAAD SILVESTRE (RN) FAMPWS During your visit today, we recorded the following information about you: Saad Silvestre RN 09/04/2018 3:25 PM Signed TRANSITION CARE MANAGEMENT (TCM) INITIAL CONTACT Provider Action/FYI: NOT A TCM Patient stopped Lyrica Feeling good except very tired Initial contact with patient post discharge, spoke to patient. Patient identified by name and . TRANSITION CARE MANAGEMENT: No flowsheet data found. SUMMARY: -Pt discharged from [facility] on 09/03. -Follow up appointment on TBD, pt will call back. -Medication review done No. -Admitted for: Toxic encephalopathy (Acute) Hypokalemia (Acute) Metabolic alkalosis (Acute) CONCERNS: Pt states she is feeling good except very tired. [facility] nurse visited today and did A1C fingerstick which was 6. NEW MEDICATIONS: None MEDS HELD/DISCONTINUED: LYRICA 100 mg TAKE 1 CAPSULE BY MOUTH THREE TIMES A DAY BRIEF HOSPITAL COURSE: COPIED FROM [facility] WEALTH at work: The patient is a 63 year old F presents after being found confused at home. Brought into the hospital underwent extensive workup, including MRI of the brain. Workup came back unremarkable. As per previous admissions, is felt to be toxic encephalopathy possibly related with the Lyrica. Lyrica was recommended discontinued last time she was here but patient is continued to take that. Once again his recommend the patient discontinued the Lyrica. Patient's mental status is back to baseline. To F/U with PCP in 2 weeks Saad Silvestre RN September 04, 2018 3:24 PM Nanda Oliveira MD 09/04/2018 3:41 PM Signed Reviewed. Allergies As of Date: 09/04/2018 Noted Allergy Reaction ADHESIVE TAPE (ROSINS) 04/04/2015 5 - Intolerance Comments: Surgical tape leaves rash Irritates skin badly and blisters along with medical tape CATS 04/10/2016 14 - Other: See Comments Comments: Congested and itchy, difficulty breathing DOGS 04/10/2016 14 - Other: See Comments Comments: Congestion, sneezing, and difficulty breathing ORPHENADRINE 04/10/2016 16 - Unknown CAPSAICIN 03/02/2018 9 - Itching CIPROFLOXACIN 12/11/2011 14 - Other: See Comments Comments: Red, hot, itchy rash KEFLEX (CEPHALEXIN) 07/10/2016 4 - Hives Comments: Negative skin testing and successful completion of an oral amoxicillin challenge was completed on 03/02/2018. Cephalexin shares an almost identical R1 side chain to amoxicillin; therefore, it is unlikely that she would be at elevated risk for developing an IgE-mediated reaction (allergic/anaphylactic). If she should need this medication in the future, I would recommend giving the first dose in a supervised medical setting. If no reaction after 30 minutes, proceed with regular dosing. NIACIN 04/04/2015 16 - Unknown Comments: Pt states its niacin its niaspan REGLAN (METOCLOPRAMIDE HCL) 03/04/2017 14 - Other: See Comments Comments: Unable to sleep XANTHINES 10/18/2004 16 - Unknown ZOFRAN (ONDANSETRON HCL (PF)) 02/03/2018 9 - Itching Date Reviewed: 08/17/2018 Reviewed by: Clayton Serna Ma - Fully Assessed Reason for Visit: [facility] Follow Up [3618] Cmt: D/C 09/03 Prescriptions as of 09/04/2018 Sig: ALBUTEROL SULFATE HFA 90 MCG/* Inhale 2 Puffs as instructed * ALCOHOL SWABS UAD to clean skin before test* ASPIRIN 81 MG TABLET,DELAYED * TAKE 1 TABLET BY MOUTH EVERY * ATORVASTATIN 40 MG TABLET TAKE 1 TABLET BY MOUTH DAILY BIPAP Bilevel PAP 16/12 cmH2O with * COMPOUNDED PRESCRIPTION BLOOD PRESSURE CUFF FOR HOME * BLOOD-GLUCOSE METER KIT UAD to test blood sugar BUSPIRONE 7.5 MG TABLET TAKE 1 TABLET BY MOUTH TWICE * CAPSAICIN 0.075 % TOPICAL CRE* Apply 1 application to affect* COMPOUNDED PRESCRIPTION Evaluation for diabetic shoes* COMPOUNDED PRESCRIPTION OCD Titration for portable ox* COMPOUNDED PRESCRIPTION Please fit for BiPAP mask. DILTIAZEM SR 180 MG 24 HR CAP TAKE 1 CAPSULE BY MOUTH EVERY* DULOXETINE 60 MG CAPSULE,MARIA EUGENIA* TAKE 1 CAPSULE BY MOUTH DAILY ELIQUIS 2.5 MG TABLET TAKE 1 TABLET BY MOUTH TWICE * ESTRADIOL 0.01% (0.1 MG/GRAM)* Apply pea-sized amount to per* FERROUS GLUCONATE 324 MG (38 * TAKE 1 TABLET BY MOUTH DAILY * FLUTICASONE 50 MCG/ACTUATION * Use 2 Sprays in each nostril * FUROSEMIDE 40 MG TABLET Take 1 tablet by mouth twice * CLAUDIA-KYLE 8.6 MG TABLET TAKE 1 TABLET BY MOUTH TWICE * GLUCOSE 4 GRAM CHEWABLE TABLET Take 4 tablets by mouth as ne* GLUCOSE 4 GRAM CHEWABLE TABLET TAKE 4 TABLETS BY MOUTH NE* IBUPROFEN 200 MG TABLET Take 200 mg by mouth every 6 * INCONTINENCE PAD, LINER, DISP* 1 Device as needed (urinary i* INSULIN GLARGINE (U-100) 100 * Inject 36 units subcutaneousl* INSULIN LISPRO (U-200) 200 UN* Inject subcutaneously 14 unit* ISOSORBIDE MONONITRATE ER 60 * TAKE 1 AND 1/2 TABLETS BY MOUTH* LANTUS SOLOSTAR U-100 INSULIN* INJECT 56 UNITS SUBCUTANEOUSL* LEVOTHYROXINE 100 MCG TABLET TAKE 1 TABLET BY MOUTH EVERY * LYRICA 100 MG CAPSULE TAKE 1 CAPSULE BY MOUTH THREE* METFORMIN ER 500 MG TABLET,EX* TAKE 2 TABLETS BY MOUTH TWICE* METOPROLOL TARTRATE 100 MG TA* TAKE 1 TABLET BY MOUTH TWICE * NITROGLYCERIN 0.4 MG SUBLINGU* DISSOLVE 1 TAB UNDER THE TONG* OMEPRAZOLE 20 MG CAPSULE,MARIA EUGENIA* TAKE 1 CAPSULE BY MOUTH EVERY* ONETOUCH DELICA LANCETS 30 GA* USE TO CHECK BLOOD SUGAR 4-5 * ONETOUCH ULTRA BLUE TEST STRIP USE DIRECTED TO CHECK BLOO* OXYGEN (HOME THERAPY) Inhale 3 L/min as instructed * PROMETHAZINE 25 MG TABLET Take 1 tablet by mouth every * PSEUDOEPHEDRINE-GUAIFENESIN E* Take 1 tablet by mouth twice * STOOL SOFTENER 100 MG CAPSULE TAKE 1 CAPSULE BY MOUTH DAILY SULFAMETHOXAZOLE 800 MG-TRIME* Take 1 tablet by mouth twice * ULTICARE PEN NEEDLE 31 GAUGE * USE DIRECTED. TO INJECT IN* VITAMIN C 500 MG TABLET TAKE 1 TABLET BY MOUTH DAILY Medication notes this encounter LYRICA 100 MG CAPSULE >> Saad Silvestre RN 09/04/2018 3:07 PM >> SAAD SILVESTRE Fri Sep 04, 2018 3:07 PM Discontinued at [facility] 09/03/18 Problem List As Of Date 09/04/2018 Noted Resolved SUBJECTIVE TINNITUS [H93.19] INVALID FOR* PARESH treated with BiPAP [G47.33] INVALID FOR* Hyperlipidemia [E78.5] INVALID FOR* Coronary disease [I25.10] INVALID FOR* Diabetes mellitus, type II (HCC) [E11.9] INVALID FOR* Morbid obesity (HCC) [E66.01] Hypothyroidism [E03.9] Anxiety [F41.9] Sleep apnea [G47.30] 02/14/2017 Essential hypertension [I10] Coronary artery disease of [place] artery of stoney* AF (paroxysmal atrial fibrillation) (HCC) [I48.* COPD (chronic obstructive pulmonary disease) (H* GERD without esophagitis [K21.9] Dysphagia [R13.10] Constipation [K59.00] DM type 2 (diabetes mellitus, type 2) (HCC) [E1* 02/14/2017 Shortness of breath [R06.02] 02/14/2017 Arthritis [M19.90] More... CHF (congestive heart failure) ([facility]) [I50.9] BPPV (benign paroxysmal positional vertigo) [H8*INVALID FOR* RLS (restless legs syndrome) [G25.81] INVALID FOR* Iron deficiency concern: RE RLS [E61.1] INVALID FOR* Tubular adenoma [D36.9] INVALID FOR* Incontinence [R32] More... Gastroparesis [K31.84] INVALID FOR* Pre-op testing [Z01.818] INVALID FOR* More... Hypercapnia [R06.89] INVALID FOR* S/P coronary artery stent placement [Z95.5] INVALID FOR* Stage 3 chronic kidney disease [N18.3] INVALID FOR* Depression [F32.9] INVALID FOR* Obesity, Class II, BMI 35-39.9 [E66.9] INVALID FOR* Encounter Status:Closed by SAAD SILVESTRE on 09/04/18 DISCHARGE SUMMARY Observed: 09/03/2018 Status: F Source: KINJAL 11:37 AM [facility] REPOSITORY [facility] Medical Records Department [address] [place] [address] Discharge Summary 09/03/18 1133 MR#: [id number] Acct: [id number] Name: TAMIA PANDA Jennifer Rep #: [id number] : 1955 63 From: Zuhair Cohn DO PCP: Bhupendra Oliveira MD Status: ADM NICOLE Y Location: [place] [address] Discharge Date and Diagnosis - Problem List Patient Problems: Active and Suspected Problems Toxic encephalopathy (Acute) Hypokalemia (Acute) Metabolic alkalosis (Acute) Date of Admission: 09/02/18 Date of Discharge: 09/03/18 - Primary Discharge Diagnosis Active and Suspected Problems Toxic encephalopathy (Acute) Hypokalemia (Acute) Metabolic alkalosis (Acute) - Secondary Discharge Diagnosis Chronic Problems Paroxysmal A-fib (Chronic) Diabetes mellitus type 2 in obese (Chronic) Coronary arteriosclerosis (Chronic) cath 05/2015 mild-moderate disease medical therapy recommended Hypothyroidism (Chronic) Hyperlipemia (Chronic) GERD (gastroesophageal reflux disease) (Chronic) Hypertension (Chronic) COPD (chronic obstructive pulmonary disease) (Chronic) Chronic respiratory insufficiency (Chronic) On home oxygen at night S/P PTCA (percutaneous transluminal coronary angioplasty) (Chronic) PARESH (obstructive sleep apnea) (Chronic) non-complaint with CPAP Hospital Course and Treatment Imaging Results: 09/03/18 05:55 MRI Brain [Brain without Contrast] [MRI] AM (NON MEDS) Clinical Impression(s) from Imaging Studies Brain CT 09/02/18 14:41 IMPRESSION: Chronic involutional changes of the brain. Stable examination. N.B. : The above information has been verbally conveyed by Bentley Montejo MD to Maria Fernanda Moss on 09/02/2018 15:27:56 (ET). Electronically Signed: Bentley Montejo MD at 15:29 EST Tel [phone], Service support , Head CTA 09/02/18 14:42 IMPRESSION: Normal bilateral cervical carotid and vertebral arteries. N.B. : The above information has been verbally conveyed by Bentley Montejo MD to Maria Fernanda Moss DO on 09/02/2018 14:59:45 (ET). Electronically Signed: Bentley Montejo MD at 15:00 EST Tel [phone], Service support , Neck CTA 09/02/18 14:42 IMPRESSION: Normal bilateral cervical carotid and vertebral arteries. N.B. : The above information has been verbally conveyed by Bentley Montejo MD to Maria Fernanda Moss DO on 09/02/2018 14:59:45 (ET). Electronically Signed: Bentley Montejo MD at 15:00 EST Tel [phone], Service support , Chest X-Ray 09/02/18 14:55 IMPRESSION: Cardiomegaly. Thoracic congestion and mild CHF. Electronically Signed: Bentley Montejo MD at 15:14 EST Tel [phone], Service support , Brain MRI 09/03/18 05:55 IMPRESSION: No acute intracranial abnormality. Minimal chronic microvascular ischemic changes. Electronically Signed: Zenobia Nunez MD at 10:55 EST Tel , Service support , Ricardo Kamara MD. Operations: None Procedures: None Summary of Care Provided: The patient is a 63 year old F presents after being found confused at home. Brought into the hospital underwent extensive workup, including MRI of the brain. Workup came back unremarkable. As per previous admissions, is felt to be toxic encephalopathy possibly related with the Lyrica. Lyrica was recommended discontinued last time she was here but patient is continued to take that. Once again his recommend the patient discontinued the Lyrica. Patient's mental status is back to baseline. [] Patient Problems: Active and Suspected Problems Toxic encephalopathy (Acute) Hypokalemia (Acute) Metabolic alkalosis (Acute) - Physical Exam General: Alert, Cooperative, No apparent distress HEENT: Atraumatic, Normocephalic Abdomen: Obese Psych/Mental Status: Normal Affect, Appropriate Vital Signs Temp Pulse Resp BP Pulse Ox 36.6 C 81 16 147/87 H 93 09/03/18 07:52 09/03/18 10:58 09/03/18 10:58 09/03/18 07:52 09/03/18 07:52 Oxygen Flow Rate (L/min) 2 Oxygen Delivery Method Room Air Weight: 95.2 kg Body Mass Index (BMI) 37.1 Finger Stick Blood Glucose 169 Intake and Output for Last 24 Hours Intake Total 739.7 / 739.7 360 / 360 Output Total 0 / 0 Balance 739.7 / 739.7 360 / 360 Laboratory Tests Past 24 Hrs WBC 6.3 RBC 4.52 Hgb 12.8 WBC RBC Hgb Hct MCV MCH MCHC RDW WBC RBC Hgb Hct MCV MCH MCHC RDW WBC 8.3 RBC 4.25 POC Glucose POC Glucose 154 H 124 H 195 H POC Glucose 169 H Discharge Diet: 1800 Calorie Control Diet Discharge Activity: Return to Normal Activity Call your doctor if you observe: Fever of 101 or Higher, Inability to urinate, - - confusion Home Medications: Medications to take at Discharge Atorvastatin Calcium [Lipitor] 40 mg PO DAILY 02/03/18 Duloxetine Hcl [Cymbalta] 60 mg PO DAILY 02/03/18 Insulin Lispro [Humalog KwikPen] 22 unit SQ LUNCH 02/03/18 Insulin Lispro [Humalog KwikPen] 24 unit SQ DINNER 02/03/18 Insulin Lispro [Humalog] 16 unit SQ BREAKFAST 02/03/18 Isosorbide Mononitrate [Imdur] 90 mg PO DAILY 02/03/18 Levothyroxine [Synthroid] 100 mcg PO DAILY 02/03/18 Apixaban [Eliquis] 2.5 mg PO BID 05/17/18 Ascorbic Acid [Vitamin C] 500 mg PO DAILY@0800 05/17/18 Omeprazole [Prilosec] 20 mg PO DAILY 05/17/18 Ferrous Gluconate 324 mg PO DAILY 07/22/18 Albuterol IH (ProAir) [Proair Hfa] 2 puff INHALATION Q4H PRN PRN 08/05/18 Acetaminophen [Tylenol] 1,000 mg PO Q8 PRN tablet 08/06/18 Aspirin E.C. [Ecotrin] 81 mg PO DAILY@0800 09/02/18 Buspirone HCl [Buspar] 7.5 mg PO BID 09/02/18 Docusate Sodium [Colace] 100 mg PO DAILY 09/02/18 Furosemide [Lasix] 40 mg PO BID 09/02/18 Metoprolol Tartrate [Lopressor (beta sudhakar)] 100 mg PO BID 09/02/18 Sennosides [Senna] 8.6 mg PO BID 09/02/18 Trueplus Glucose Chew 4 tab PO PRN PRN 09/02/18 Primary Care Physician: Bhupendra Oliveira MD [Primary Care Provider] - Within 2 Weeks Disposition: Home Minutes spent on discharge:: 32 Patient Condition:: Fair Medical Necessity - Tobacco Use Smoking Status: Former smoker Tobacco Use: Non-smoker Meaningful Use Info Meaningful Use Diagnoses (Choose all that apply): None applicable Code Visit OBSV E AND M: 68521 Observation care discharge 09/03/18 1137 <Electronically signed by Zuhair Cohn DO> Date Zuhair Cohn DO Cosigner Signature (if applicable): Date CC: Bhupendra Oliveira MD; Zuhair Cohn DO Signed DISCHARGE INSTRUCTION Observed: 09/03/2018 Status: F Source: MEARS 11:33 AM [facility] REPOSITORY [facility] Medical Records Department [address] [place] [address] Instructions for Home/Discharge Instructions 09/03/18 1129 MR#: [id number] Acct: [id number] Name: TAMIA PANDA Rep #: [id number] : 1955 63 From: Zuhair Cohn DO PCP: Bhupendra Oliveira MD Status: ADM NICOLE - Discharge Diagnoses Current Active Problems: Current Active and Chronic Problems Encephalopathy acute (Acute) Hypokalemia (Acute) Metabolic alkalosis (Acute) You will use the following diet at home:: Calorie/Carbohydrate Controlled (specify 1200, 1400, etc) - 1800 Your food should be the consistency of: Regular Your liquids should be the consistency of: Regular/Thin Call your doctor if you observe: Fever of 101 or Higher, Inability to urinate, - - confusion Allergies/Adverse Reactions: Allergies ciprofloxacin [From Cipro] Allergy (Verified 07/25/18 06:11) Hives latex Allergy (Verified 07/25/18 06:11) matos me niacin [From Niaspan Extended-Release] Allergy (Verified 07/25/18 06:11) Hives ondansetron [From Zofran] Allergy (Verified 07/25/18 06:11) Unknown Xanthines Allergy (Verified 07/25/18 06:11) Unknown orphenadrine citrate [From Norgesic] Adverse Reaction (Verified 07/25/18 06:11) groggy medical tape Adverse Reaction (Uncoded 07/25/18 06:11) blisters Medications to take at Discharge Atorvastatin Calcium [Lipitor] 40 mg PO DAILY 02/03/18 Duloxetine Hcl [Cymbalta] 60 mg PO DAILY 02/03/18 Insulin Lispro [Humalog KwikPen] 22 unit SQ LUNCH 02/03/18 Insulin Lispro [Humalog KwikPen] 24 unit SQ DINNER 02/03/18 Insulin Lispro [Humalog] 16 unit SQ BREAKFAST 02/03/18 Isosorbide Mononitrate [Imdur] 90 mg PO DAILY 02/03/18 Levothyroxine [Synthroid] 100 mcg PO DAILY 02/03/18 Apixaban [Eliquis] 2.5 mg PO BID 05/17/18 Ascorbic Acid [Vitamin C] 500 mg PO DAILY@0800 05/17/18 Omeprazole [Prilosec] 20 mg PO DAILY 05/17/18 Ferrous Gluconate 324 mg PO DAILY 07/22/18 Albuterol IH (ProAir) [Proair Hfa] 2 puff INHALATION Q4H PRN PRN 08/05/18 Acetaminophen [Tylenol] 1,000 mg PO Q8 PRN tablet 08/06/18 Aspirin E.C. [Ecotrin] 81 mg PO DAILY@0800 09/02/18 Buspirone HCl [Buspar] 7.5 mg PO BID 09/02/18 Docusate Sodium [Colace] 100 mg PO DAILY 09/02/18 Furosemide [Lasix] 40 mg PO BID 09/02/18 Metoprolol Tartrate [Lopressor (beta sudhakar)] 100 mg PO BID 09/02/18 Sennosides [Senna] 8.6 mg PO BID 09/02/18 Trueplus Glucose Chew 4 tab PO PRN PRN 09/02/18 Primary Care Physician: Bhupendra Oliveira MD [Primary Care Provider] - Within 2 Weeks Test Results: Test results from this visit will be discussed in further detail at your follow-up appointment, if applicable. Proposed Discharge Date: 09/03/18 09/03/18 1133 <Electronically signed by Zuhair Cohn DO> Date Zuhair Cohn DO CC: Bhupendra Oliveira MD BEDSIDE GLUCOSE Collected: 09/03/2018 Status: F Source: KINJAL 11:23 AM [facility] REPOSITORY TYPE CODE TESTS RESULT OUT OF REFERENCE UNITS RANGE LAB L501.080 70-110 mg/dL High BEDSIDE GLU 321 Result Comment: MANAGEMENT OF PATIENT CARE PER NURSING PROTOCOL Performed By: #### L501.080 #### [facility] Point of Care [address] [place], [place] [id number] BEDSIDE GLUCOSE Collected: 09/03/2018 Status: F Source: KINJAL 6:49 AM [facility] REPOSITORY TYPE CODE TESTS RESULT OUT OF REFERENCE UNITS RANGE LAB L501.080 70-110 mg/dL High BEDSIDE GLU 154 Result Comment: MANAGEMENT OF PATIENT CARE PER NURSING PROTOCOL Performed By: #### L501.080 #### [facility] Point of Care [address] [facility] [place], [place] [address] CBC-COMPLETE BLOOD CNT Collected: 09/03/2018 Status: F Source: K[place]JAL NO DIFF 5:40 AM [facility] [place] REPOSITORY TYPE CODE TESTS RESULT OUT OF RANGE REFERENCE UNITS LAB L100.1000 4.4-11.0 K/mm3 Normal WBC 8.3 LAB L100.1200 4.2-5.4 M/mm3 Normal RBC 4.25 LAB L100.1300 12.0-15.0 g/dl Normal HGB 12.3 LAB L100.1400 37-47 % Normal HCT 39.8 LAB L100.1500 81-99 fL Normal MCV 93.6 LAB L100.1600 27.0-32.0 pg Normal MCH 28.9 LAB L100.1700 32-36 g/gl Low MCHC 30.9 LAB L100.1810 11.6-14.6 % High RDW CV 16.2 LAB L100.1820 35.1-43.9 fl High RDW SD 53.7 LAB L100.1900 150-450 K/mm3 Normal PLT 198 LAB L100.2000 6.2-12.0 fl Normal MPV 11.0 Performed By: #### L100.0500 #### [facility] [address] [place], [place], [id number] COMPREHENSIVE METABOLIC Collected: 09/03/2018 Status: F Source: KINJAL PROFIL 5:40 AM [facility] REPOSITORY TYPE CODE TESTS RESULT OUT OF RANGE REFERENCE UNITS LAB L501.0100 74-106 mg/dL High GLU 139 Result Comment: Fasting Glucose result greater than or equal to 126 mg/dL suggests DIABETES MELLITUS per A.D.A. criteria. Please note revised GLUCOSE reference range effective 2017. LAB L501.1000 7-18 mg/dL Normal BUN 10 LAB L501.1100 0.55-1.02 mg/dL Normal CREAT,SERUM 0.75 Result Comment: The validity of the calculated GFR AND GFRAA in patients over 70 years has not been determined. Clinical correlation is essential. LAB L501.1110 >60 mL/min Normal EST GFR 83 Result Comment: Non- GFR Calc LAB L501.1115 >60 mL/min Normal EST GFR - AA 100 Result Comment: GFR Calc LAB L501.1255 ml/min Normal Estimated CRCL 60.72 LAB L501.1300 10-20 RATIO Normal BUN/CRE 13.3 LAB L501.1500 6.4-8. g/dL Normal 2 T PROT 6.5 LAB L501.1800 3.2-5. g/dL Low 0 ALB 2.8 LAB L501.1950 2.2-4. g/dL Normal 2 GLOB 3.7 LAB L501.2000 0.9-2. RATIO Low 4 A/G 0.8 LAB L501.2200 8.5-10 mg/dL Low .1 CA 8.3 LAB L501.4100 15-37 U/L Low AST 12 LAB L501.4305 45-117 U/L Normal ALK P 49 LAB L501.4405 13-56 U/L Normal ALT 14 LAB L501.4600 0.20-1 mg/dL Normal .00 T BILI 0.90 LAB L501.5300 136-14 mmol/L Normal 5 NA 145 LAB L501.5600 3.5-5. mmol/L Normal 1 K 3.6 LAB L501.5900 98-107 mmol/L Normal CL 105 LAB L501.6100 21.0-3 mmol/L High 2.0 CO2 35.0 LAB L501.6200 5-15 Normal GAP 5 Performed By: #### L500.4050, L501.2300, L501.5200 #### [facility] [address] [place], [address] PHOSPHORUS Collected: 09/03/2018 Status: F Source: KINJAL 5:40 AM [facility] REPOSITORY TYPE CODE TESTS RESULT OUT OF RANGE REFERENCE UNITS LAB L501.2300 2.5-4.9 mg/dL Normal PHOS 3.2 Performed By: #### L500.4050, L501.2300, L501.5200 #### [facility] [address] [place], [address] MAGNESIUM Collected: 09/03/2018 Status: F Source: KINJAL 5:40 AM [facility] [place] REPOSITORY TYPE CODE TESTS RESULT OUT OF RANGE REFERENCE UNITS LAB L501.5200 1.6-2.6 mg/dL Normal MG 1.7 Performed By: #### L500.4050, L501.2300, L501.5200 #### [facility] [address] [place], [address] BEDSIDE GLUCOSE Collected: 09/03/2018 Status: F Source: KINJAL 12:24 AM [facility] [place] REPOSITORY TYPE CODE TESTS RESULT OUT OF REFERENCE UNITS RANGE LAB L501.080 70-110 mg/dL High BEDSIDE GLU 124 Result Comment: MANAGEMENT OF PATIENT CARE PER NURSING PROTOCOL Performed By: #### L501.080 #### [facility] Point of Care [address] [place] [address] BRAIN WITHOUT Observed: 09/03/2018 Status: F Source: KINJAL CONTRAST 12:00 AM [facility] REPOSITORY [facility] Imaging Services [address] [facility] [place] [address] Brain without Contrast MR#: [id number] Acct: [id number] Name: TAMIA PANDA Jennifer Rep #: [id number] : 1955 F 63 From: Zenobia Nunez PCP: Bhupendra Oliveira MD Status: ADM NICOLE Study: Brain without Contrast Date of Exam: 09/03/18 Exam# [id number] Ordering Dr: Cindi Sharif DO STUDY: MRI BRAIN WITHOUT CONTRAST REASON FOR EXAM: Female, 63 years old. cva, slurred speech, expressive aphasia, blurred vision. TECHNIQUE: Standardized multiplanar fat and water weighted pulse sequences were obtained. COMPARISON: 09/02/2018 FINDINGS: Normal size of the ventricles and extra-axial spaces for the patient's age. There are a limited number of small white matter hyperintensities, distributed throughout the deep white matter tracts of the cerebral hemispheres, consistent with minimal chronic white matter ischemic changes. Normal bilateral basal ganglia. Normal thalami. There is no extra-axial fluid accumulation. Normal flow voids within the major intracranial circulation suggesting patency by spin echo criteria. Normal sella turcica, pituitary gland, infundibular stalk, optic chiasm and hypothalamus. Normal tectal plate and pineal gland. Normal midbrain, elizabeth and medulla. Normal cerebellum. Normal basal cisterns. MRI/Brain without Contrast IMPRESSION: No acute intracranial abnormality. Minimal chronic microvascular ischemic changes. Electronically Signed: Zenobia Nunez MD at 10:55 EST Tel , Service support , CC: Anna Sharif; Bhupendra Oliveira MD Pipe Recovery Specialist: Signed TROPONIN-I Collected: 09/02/2018 Status: F Source: MEARS 9:20 PM [facility] REPOSITORY Order Comment: 'TROP' Serial specimen #1, #2 or #3: 3 TYPE CODE TESTS RESULT OUT OF RANGE REFERENCE UNITS LAB L501.4010 <0.045 ng/mL Normal < 0.015 TROPONIN-I Result Comment: TROPONIN-I EXPECTED VALUES <0.045 Negative 0.045 - 0.590 Consistent with Cardiac Damage > OR = 0.600 Critical Value Not every elevated troponin is indicative of DC. These values should be used with clinical judgement in examining the patient's clinical picture for diagnosis. To establish a diagnosis of DC versus myocardial injury, there must be a demonstrated rise and/or fall in the troponin values, in addition to ischemic symptoms, EKG changes, new regional wall motion abnormality, and/or angiographical evidence. PLEASE NOTE: REFERENCE RANGES EDITED 18 Performed By: #### L501.4010 #### [facility] [address] [place], [address] AMMONIA Collected: 09/02/2018 Status: F Source: MEARS 5:52 PM [facility] REPOSITORY TYPE CODE TESTS RESULT OUT OF REFERENCE UNITS RANGE LAB L503.5510 11-32 umol/L High AMMONIA 45.0 Performed By: #### L503.5510 #### [facility] [address] [place], [address] HEMOGLOBIN A1C Collected: 09/02/2018 Status: F Source: MEARS 5:52 PM [facility] REPOSITORY TYPE CODE TESTS RESULT OUT OF RANGE REFERENCE UNITS LAB L501.9985 4.2-6.3 % High HGB A1C 7.4 Performed By: #### L501.9985 #### [facility] [address] [place], [address] MAGNESIUM Collected: 09/02/2018 Status: F Source: MEARS 5:52 PM [facility] REPOSITORY TYPE CODE TESTS RESULT OUT OF RANGE REFERENCE UNITS LAB L501.5200 1.6-2.6 mg/dL Normal MG 1.8 Performed By: #### L501.5200 #### [facility] [address] [place], [address] TROPONIN-I Collected: 09/02/2018 Status: F Source: MEARS 5:52 PM [facility] REPOSITORY Order Comment: 'TROP' Serial specimen #1, #2 or #3: 2 TYPE CODE TESTS RESULT OUT OF RANGE REFERENCE UNITS LAB L501.4010 <0.045 ng/mL Normal < 0.015 TROPONIN-I Result Comment: TROPONIN-I EXPECTED VALUES <0.045 Negative 0.045 - 0.590 Consistent with Cardiac Damage > OR = 0.600 Critical Value Not every elevated troponin is indicative of DC. These values should be used with clinical judgement in examining the patient's clinical picture for diagnosis. To establish a diagnosis of DC versus myocardial injury, there must be a demonstrated rise and/or fall in the troponin values, in addition to ischemic symptoms, EKG changes, new regional wall motion abnormality, and/or angiographical evidence. PLEASE NOTE: REFERENCE RANGES EDITED 18 Performed By: #### L501.4010, L501.9520 #### [facility] [address] [place], [address] THYROID STIM HORMONE Collected: 09/02/2018 Status: F Source: KINJAL (TSH) 5:52 PM [facility] REPOSITORY Order Comment: 'TROP' Serial specimen #1, #2 or #3: 2 TYPE CODE TESTS RESULT OUT OF RANGE REFERENCE UNITS LAB L501.9520 0.358-3.74 uIU/mL Normal TSH 0.70 Performed By: #### L501.4010, L501.9520 #### [facility] [address] [place], [address] BEDSIDE GLUCOSE Collected: 09/02/2018 Status: F Source: KINJAL 5:33 PM [facility] REPOSITORY TYPE CODE TESTS RESULT OUT OF REFERENCE UNITS RANGE LAB L501.080 70-110 mg/dL High BEDSIDE GLU 195 Result Comment: MANAGEMENT OF PATIENT CARE PER NURSING PROTOCOL Performed By: #### L501.080 #### [facility] Point of Care [address] [place] [address] EMERGENCY DEPARTMENT Observed: 09/02/2018 Status: F Source: KINJAL SUMMARY 5:10 PM [facility] REPOSITORY [facility] Medical Records Department [address] [facility] [place] [address] Emergency Department Summary 09/02/18 1452 MR#: [id number] Acct: [id number] Name: TAMIA PANDA Rep #: [id number] : 1955 63 From: Anju Gibson MD PCP: Bhupendra Oliveira MD Status: ADM NICOLE - ER Visit Summary Date of Service: 09/02/18 Chief Complaint: [] Decreased level of responsiveness unconscious History of Present Illness: The patient is a 63 F [] history of diabetes some unspecified heart disease with 2 stents per the son he basically states he left her around noon she was in usual state of health he returned a short time later and found her unresponsive sitting in the chair where he left her she arrived to the emergency room around 230 on arrival of EMS her vital signs were stable her blood sugar was 145 she would not respond to them she would not move she simply would matilda Is brought to the emergency department her vital signs were all unremarkable blood pressure 126/85 heart rate 100 pulse ox 93 on room air 98 on nonrebreather blood sugar about 180 and her eyes were closed she had nonpurposeful movements of the upper extremities would not move the pain to the lower extremities as we were evaluating her she suddenly opened her eyes she knew her name she denied any complaints she began moving upper extremities to commands had difficulty raising her lower extremities, NIH would be calculated at that above information, she could not explain why she was unresponsive earlier but she specifically denied head neck chest or abdominal pain This time she is on no new medications nothing was different with her health or situation today and this is happened her before for unspecified reasons Physical Examination: [] Vital signs and partial exam as above at this point time she is awake she is answering questions her airways intact her neck is supple her lungs are diminished diffusely heart tones are distant the abdomen is obese but soft nontender she has 3+ lower extremity edema to the pain she has nonpurposeful wounds of her legs will not really move them to commands she moves both upper extremities to commands and again she has no complaints airways intact Test Results: [] Emergency Department Course and Treatment: [] She underwent CT scan protocol for acute stroke per neurology the CTA head neck showed nothing acute and will continue her workup and arrange for hospice to see her for syncope She is EKG and screening labs are generally unremarkable she remains neurologically and hemodynamically stable will arrange for admission Treatment Plan: [] Disposition: [] Admit Impression: [] Syncope, history of diabetes This note was generated with Cureeo dictation software. It may contain incorrect words, spelling, and punctuation that were not noted in review of the chart prior to signing ED Disposition - Plan for ED Patient: Chief Complaint: Neuro S/Sx Referrals: Bhupendra Oliveira MD [Primary Care Provider] - What to do if you have Problems For any increased pain, shortness of breath, bleeding, nausea or vomiting, chest pain, or any unexpected problems, contact your Primary Care Provider. Call [facility] ([phone]) or report to the closest Emergency Room. Call 911 if necessary. 09/02/18 3910 <Electronically signed by Anju Gibson MD> Date Anju Gibson MD Cosigner Signature (If Indicated): Date CC: Bhupendra Oliveira MD HISTORY AND PHYSICAL Observed: 09/02/2018 Status: F Source: MEARS EXAM 5:01 PM [facility] REPOSITORY [facility] Medical Records Department [address] [place] [address] History and Physical 09/02/18 1634 MR#: [id number] Acct: [id number] Name: TAMIA PANDA Rep #: [id number] : 1955 63 From: Cindi Sharif DO PCP: Bhupendra Oliveira MD Status: ADM NICOLE Y Location: [place] [address] Problem List (1) Encephalopathy acute Status: Acute (2) Bradycardia Status: Resolved (3) Toxic encephalopathy Status: Resolved (4) COPD (chronic obstructive pulmonary disease) Status: Chronic Qualifiers: (5) Chronic respiratory insufficiency Status: Chronic Comment: On home oxygen at night (6) Coronary arteriosclerosis Status: Chronic Comment: cath 05/2015 mild-moderate disease medical therapy recommended (7) Diabetes mellitus type 2 in obese Status: Chronic (8) GERD (gastroesophageal reflux disease) Status: Chronic Qualifiers: (9) Hyperlipemia Status: Chronic Qualifiers: (10) Hypertension Status: Chronic Qualifiers: (11) Hypothyroidism Status: Chronic Qualifiers: (12) PARESH (obstructive sleep apnea) Status: Chronic Comment: non-complaint with CPAP (13) Paroxysmal A-fib Status: Chronic (14) S/P PTCA (percutaneous transluminal coronary angioplasty) Status: Chronic (15) Acute hypoglycemia Status: Inactive (16) Acute metabolic encephalopathy Status: Inactive (17) Acute on chronic respiratory failure with hypoxia and hypercapnia Status: Inactive (18) Acute respiratory failure with hypoxia Status: Inactive (19) Atrial fibrillation with RVR Status: Inactive (20) COPD exacerbation Status: Inactive (21) COPD with acute exacerbation Status: Inactive (22) COPD with moderate acute bronchitis Status: Inactive (23) Hypoglycemia Status: Inactive (24) Mental status alteration Status: Inactive Qualifiers: (25) Possible pneumonia Status: Inactive (26) Hypokalemia Status: Acute (27) Metabolic alkalosis Status: Acute History of Present Illness Date of Admission: 09/02/18 Chief Complaint: brought to the ER when son found her unresponive sitting in a chair The patient is a 63 year old F past medical history of diabetes mellitus type 2, coronary artery disease, atrial fibrillation, COPD, obstructive sleep apnea (noncompliant with CPAP), obesity, thyroidism, hyperlipidemia, GERD chronic respiratory insufficiency with hypoxemia using oxygen only at night who was brought to the emergency room by squad after her son found her sitting unresponsive in a chair at home. She awoke in the ER and was able to answer questions but falls right back to sleep....speech is slurred and hard to understand. No recent hx of illness. She was normal earlier in the day. Signs of presentation to the emergency room are temperature 96.9, pulse rate 87, blood pressure 129/86, respiratory rate 22 and she was percent saturated on a 2 L cannula and once she woke up she is 99% on room air. ABC reveals a normal white blood cell count with an unremarkable differential. Hemoglobin and platelets are within normal limits. Sodium is 145 and the potassium is low at 3.1. Serum bicarb is elevated at 37 and the BUN is 13 with a creatinine of 0.81. CT scan of the brain showed no acute findings and CTA of the head and neck showed no significant areas of stenosis. Blood sugar in the emergency room was 142. Troponin was less than 0.015. He is pending but the urine was pale yellow and clear. One son indicated to the ER physician that he feels his brother may be overmedicating their mother. He has had multiple admissions this past year for acute encephalopathy secondary to to retention and medication. Patient has known obstructive sleep apnea and takes Lyrica 100 mg 3 times daily which I suspect contributes significantly to her somnolence/encephalopathy/CO2 retention. She is being admitted to the hospital for observation. Past Medical History Past Medical History (Chronic Problems): Chronic Problems Paroxysmal A-fib (Chronic) Diabetes mellitus type 2 in obese (Chronic) Coronary arteriosclerosis (Chronic) cath 05/2015 mild-moderate disease medical therapy recommended Hypothyroidism (Chronic) Hyperlipemia (Chronic) GERD (gastroesophageal reflux disease) (Chronic) Hypertension (Chronic) COPD (chronic obstructive pulmonary disease) (Chronic) Chronic respiratory insufficiency (Chronic) On home oxygen at night S/P PTCA (percutaneous transluminal coronary angioplasty) (Chronic) PARESH (obstructive sleep apnea) (Chronic) non-complaint with CPAP Allergies ciprofloxacin [From Cipro] Allergy (Verified 07/25/18 06:11) Hives latex Allergy (Verified 07/25/18 06:11) matos me niacin [From Niaspan Extended-Release] Allergy (Verified 07/25/18 06:11) Hives ondansetron [From Zofran] Allergy (Verified 07/25/18 06:11) Unknown Xanthines Allergy (Verified 07/25/18 06:11) Unknown orphenadrine citrate [From Norgesic] Adverse Reaction (Verified 07/25/18 06:11) groggy medical tape Adverse Reaction (Uncoded 07/25/18 06:11) blisters Home Medications: Ambulatory Orders Medication Instructions Recorded Surgical History: angioplasty, cholecystectomy, herniorrhaphy, hysterectomy, - - tubal ligation. Psychiatric History: No pertinent psych hx LOG CUT OFF SAWYER History: No pertinent LOG CUT OFF SAWYER history Smoking Status: Former smoker Tobacco Use: Non-smoker Alcohol: Rare Drugs: None - *Family History Sibling History Items: COPD - in sister. Maternal History Items: No pertinent history Paternal History Items: Heart Disease, Stroke - age 62 Offspring History Items: No pertinent history - 5 children, 32 grand children and great grandchildren Review of Systems Unable to obtain accurate/complete ROS d/t: unable to stay awake to answer questions and speech is unintelligible VTE Information - Inpt Only VTE Present on Admission: No VTE Mechan Device Prophylaxis: SCD's, Knee High KELLIE Hose VTE Pharm Prophylaxis ordered?: No Reason prophylaxis not ordered:: Treatment Not Indicated - she is on Apixaban Patient Problems: Active and Suspected Problems Encephalopathy acute (Acute) Hypokalemia (Acute) Metabolic alkalosis (Acute) - Physical Exam General: Well developed, Well nourished, Lethargic, - - looks older than her given age HEENT: Atraumatic, PERRLA, EOMI, Normocephalic Oral: Dry Mucosa Neck: Supple, No JVD, Negative Carotid Bruits Lungs: Clear to auscultation, Diminished Cardiovascular: Normal S1, Normal S2, No murmurs, Irregular Rate, No rub noted, No Gallop Abdomen: Bowel Sounds Present, Soft, Non Tender, Non-Distended, - - With palpation Extremities: No clubbing, No cyanosis, No edema, Diminished Peripheral Pulses Skin: No rashes, No breakdown Neurological: Cranial nerves II-XII grossly intact, Neuro grossly intact, - - no focal deficits Psych/Mental Status: - - lethargic and difficult to arouse Vital Signs Temp Pulse Resp BP Pulse Ox 96.9 F L 87 18 108/77 99 09/02/18 14:26 09/02/18 16:17 09/02/18 16:17 09/02/18 16:17 09/02/18 16:17 Oxygen Flow Rate (L/min) 2 Oxygen Delivery Method Room Air Weight: 218 lb 11.177 oz Body Mass Index (BMI) 38.7 Finger Stick Blood Glucose 169 Laboratory Tests Past 24 Hrs POC Glucose POC Glucose 169 H Assessment/Plan All Active Problems Encephalopathy acute (Acute) Hypokalemia (Acute) Metabolic alkalosis (Acute) Abnormal nuclear stress test (Resolved) Bradycardia (Resolved) Pneumonia (Resolved) Septic shock (Resolved) Toxic encephalopathy (Resolved) Impressions 1. encephalopathy - etiology? Has been admitted to the hospital 8 times in the past year, several times for encephalopathy. No obvious infection. she does have a metabolic alkalosis which I suspect is due to C02 retention. She has untreated sleep apnea and she takes Lyrica 100 mg TID. She has also been admitted to the hospital with hypoglycemia but BS was WNL this admission 2. PARESH - non-compliant with CPAP 3. DM II . Coronary artery disease 5. Hyperlipidemia 6. Hypertension 7. COPD 8. Former smoker 9. Hypothyroidism 10. Atrial fibrillation on Eliquis for anticoagulation ABG and urine drug screen have been ordered We will admit to PCU for observation Hold Lyrica for now until the patient is able to wake up. I would suggest tapering this medication off unless she is willing to wear CPAP anytime she is napping or sleeping. Check an ammonia level Reviewed Dr. Kamara's consult and appreciate his input. MRI in the a.m. Check a TSH N.p.o. until she is fully alert and use sliding scale insulin for blood sugar coverage Recheck lab in the a.m. Mag and KELLIE morrow for DVT prophylaxis. Continue apixaban for atrial fibrillation Code Visit Inpatient E AND M: 14729 Init Hosp L3 09/02/18 1701 <Electronically signed by Cindi Sharif DO> Date Cindi Sharif DO Cosigner Signature: Date (if applicable) CC: Anna Sharif; Bhupendra Oliveira MD Signed BLOOD GASES BY CPS Collected: 09/02/2018 Status: F Source: KINJAL 4:50 PM [facility] REPOSITORY TYPE CODE TESTS RESULT OUT OF RANGE REFERENCE UNITS LAB L9000.9990 Normal BLD GAS TYPE ART LAB L9001.1000 Normal SITE L Radial LAB L9001.1010 Normal SALO TEST NA LAB L9001.1050 O2 Normal Delivery Dev Nasal Can LAB L9001.1055 /min Normal LPM 6.0 LAB L9001.1104 Normal Results To ED LAB L9001.1105 Normal Time Given 1645 LAB L9001.1110 7.35-7.45 pH Normal - I-STAT 7.40 LAB L9001.1210 35-45 mmHg High pCO2 - ISTAT 58.6 LAB L9001.1310 75-100 mmHG High PO2 I-STAT 138 LAB L9001.2300 22-26 mmol/L High HCO3 ISTAT 36.7 LAB L9001.2400 -2 to +2 mmol/L High BE ISTAT 12 LAB L9001.2415 mmol/L Normal TOTAL CO2 38 ISTAT LAB L9001.2425 95-99 % Normal SO2 ISTAT 99 Performed By: #### L9000.0800 #### [facility] Point of Care [address] [place] [address] URINALYSIS, COMPLETE Collected: 09/02/2018 Status: F Source: KINJAL 4:15 PM [facility] REPOSITORY Order Comment: Order Date: 09/02/18 OV Order #: ] How was Urine Obtained? CATHETER SPECIMEN TYPE CODE TESTS RESULT OUT OF RANGE REFERENCE UNITS LAB L400.3000 Yellow COLOR Normal Yellow LAB L400.3050 Clear Normal CLARITY Sl. Cloudy LAB L400.3200 Normal mg/dl Normal GLUCOSE, UR Normal LAB L400.3300 Negative mg/dL Normal BILIRUBIN URINE Negative LAB L400.3400 Negative mg/dl Normal KETONE UR Negative LAB L400.3465 1.002-1.030 Normal SP.GR. DIPSTX 1.005 LAB L400.3550 5.0 - 8.0 pH UR Normal 7.0 LAB L400.3600 Negative mg/dl PROT Normal DIPSTX Negative LAB L400.3700 Normal mg/dl Normal UROBILI Normal LAB L400.3750 Negative Normal NITRITE UR Negative LAB L400.3780 Negative /ul Normal OCCULT BLOOD-UR Negative LAB L400.3800 Negative /ul High LEUK ESTERASE 500 LAB L400.4050 0-5 /hpf WBC Normal 10-25 SEEN Result Comment: FEW WBC CLUMPS PRESENT LAB L400.4100 0-5 /hpf RBC-UA Normal 0 SEEN LAB L400.4150 5-10 /hpf SQUAM EPI Normal 0 SEEN LAB L400.4300 None Seen /hpf BACTERIA Normal 0 SEEN LAB L400.4350 <or=2+ /hpf MUCUS, URINE Normal 0 SEEN LAB L400.4200 0-5 /hpf TRANSITIONAL Normal EP 0-5 SEEN Performed By: #### L400.0001 #### [facility] [address] [facility] [place], [address] CHEST 1 VIEW Observed: 09/02/2018 Status: F Source: MEARS (PORTABLE) 2:52 PM [facility] REPOSITORY [facility] Imaging Services [address] [place] [address] Chest 1 View (Portable) MR#: [id number] Acct: [id number] Name: TAMIA PANDA Jennifer Rep #: [id number] : 1955 F 63 From: Bentley Montejo MD PCP: Bhupendra Oliveira MD Status: REG ER Study: Chest 1 View (Portable) Date of Exam: 09/02/18 Exam# [id number] Ordering Dr: Anju Gibson MD STUDY: X-RAY CHEST REASON FOR EXAM: Female, 63 years old. Chest pain. Slurred speech. Right-sided weakness. TECHNIQUE: Single AP portable view of the chest. COMPARISON: Comparison is made with prior study dated August 13, 2018. FINDINGS: EKG electrodes are seen. Mild degree of vascular congestion. There is no demonstrated pleural abnormality. There is moderate cardiac enlargement. Normal mediastinum and tracie. Normal visualized pulmonary arteries. Normal visualized aortic arch and descending thoracic aorta. There are diffuse degenerative changes of the visualized thoracic spine. Normal visualized ribs, clavicles, and shoulders. There is no demonstrated abnormality of the visualized soft tissue structures of the upper abdomen. RAD/Chest 1 View (Portable) IMPRESSION: Cardiomegaly. Thoracic congestion and mild CHF. Electronically Signed: Bentley Montejo MD at 15:14 EST Tel [phone], Service support , CC: MD Eder Gibson; Bhupendra Oliveira MD Pipe Recovery Specialist: Signed CTA NECK W/WO Observed: 09/02/2018 Status: F Source: KINJAL CONTRAST 2:43 PM [facility] REPOSITORY [facility] Imaging Services [address] [place] [id number] CTA Neck W/WO Contrast MR#: [id number] Acct: [id number] Name: TAMIA PANDA Rep #: [id number] : 1955 F 63 From: Bentley Montejo MD PCP: Bhupendra Oliveira MD Status: REG ER Study: CTA Neck W/WO Contrast Date of Exam: 09/02/18 Exam# [id number] Ordering Dr: Maria Fernanda Moss DO STUDY: CTA OF THE BRAIN REASON FOR EXAM: Female, 63 years old. CVA symptoms. RADIATION DOSAGE (If Supplied By Facility): CTDIvol = ( 26.69 ) mGy, DLP = ( 714.78 ) mGycm TECHNIQUE: CT angiography was performed with a multi-detector CT scanner. Data acquisition was obtained from the skull base through the vertex following intravenous administration of 100 ml of Isovue 370. MIP images were reconstructed from the axial data set. Post-processing of the angiographic images was performed, with multiplanar reformation and 3D reconstruction. Individualized dose optimization techniques were used for this CT. COMPARISON: None. FINDINGS: Normal bilateral petrous carotid arteries. Normal right cavernous carotid artery with a normal supraclinoid bifurcation. Normal left cavernous carotid artery with a normal supraclinoid bifurcation. Normal right A1 segments of the anterior cerebral artery. Normal left A1 segments of the anterior cerebral artery. Normal intact anterior communicating artery (ACOM). Normal bilateral A2 segments of the anterior cerebral arteries. Normal right M1 and M2 segments of the middle cerebral arteries, with a normal M1 bifurcation. Normal left M1 and M2 segments of the middle cerebral arteries, with a normal M1 bifurcation. Normal right posterior communicating artery (PCOM). Normal left posterior communicating artery (PCOM). Normal bilateral vertebral arteries. Normal basilar artery with a normal basilar bifurcation. The visualized bilateral superior cerebellar (SCA) arteries are normal. Normal bilateral P1, P2 and visualized P3 segments of the posterior cerebral arteries. There is no demonstrated aneurysm of the [place]. There is no demonstrated abnormality of the visualized brain. IMPRESSION: Normal [place] without a demonstrated aneurysm or hemodynamically significant stenosis. N.B. : The above information has been verbally conveyed by Bentley Montejo MD to Maria Fernanda Moss DO on 09/02/2018 14:59:45 (ET). Electronically Signed: Bentley Montejo MD at 14:58 EST Tel [phone], Service support , STUDY: CTA NECK WITH CONTRAST REASON FOR EXAM: Female, 63 years old. History of CVA. RADIATION DOSAGE (If Supplied By Facility): CTDIvol = ( 26.69 ) mGy, DLP = ( 714.78 ) mGycm TECHNIQUE: CT angiography with multi-detector data acquisition was performed from the aortic arch to the skull base following intravenous administration of 100 ml of Isovue 370 contrast. MIP images were reconstructed from the axial data set. Post-processing of the angiographic images was performed, with multiplanar reformation and 3D reconstruction. Individualized dose optimization techniques were used for this CT. COMPARISON: None. FINDINGS: AORTIC ARCH: Normal visualized aortic arch. Normal origins of the brachiocephalic, left common carotid, and left subclavian arteries. RIGHT CAROTID ARTERIES: Normal right common carotid artery (CCA). Normal right common carotid bulb. Normal origin of the right internal carotid (ICA) artery without a hemodynamically significant stenosis. Normal visualized cervical portion of the right internal carotid artery. Normal origin of the right external carotid artery (ECA). LEFT CAROTID ARTERIES: Normal left common carotid artery (CCA). Normal left common carotid bulb. Normal origin of the left internal carotid (ICA) artery without a hemodynamically significant stenosis. Normal visualized cervical portion of the left internal carotid artery. Normal origin of the left external carotid artery (ECA). VERTEBRAL ARTERIES: Normal bilateral vertebral arteries. Opacification of the right maxillary sinus. CT/CTA Neck W/WO Contrast IMPRESSION: Normal bilateral cervical carotid and vertebral arteries. N.B. : The above information has been verbally conveyed by Bentley Montejo MD to Maria Fernanda Moss DO, on 09/02/2018 14:59:45 (ET). Electronically Signed: Bentley Montejo MD at 15:00 EST Tel [phone], Service support , CC: Bhupendra Oliveira MD; Maria Fernanda Moss DO Pipe Recovery Specialist: Signed CTA HEAD W/WO Observed: 09/02/2018 Status: F Source: MEARS CONTRAST 2:43 PM [facility] REPOSITORY [facility] Imaging Services [address] [place] [address] CTA Head W/WO Contrast MR#: [id number] Acct: [id number] Name: TAMIA PANDA Rep #: [id number] : 1955 F 63 From: Bentley Montejo MD PCP: Bhupendra Oliveira MD Status: REG ER Study: CTA Head W/WO Contrast Date of Exam: 09/02/18 Exam# [id number] Ordering Dr: Maria Fernanda Moss DO STUDY: CTA OF THE BRAIN REASON FOR EXAM: Female, 63 years old. CVA symptoms. RADIATION DOSAGE (If Supplied By Facility): CTDIvol = ( 26.69 ) mGy, DLP = ( 714.78 ) mGycm TECHNIQUE: CT angiography was performed with a multi-detector CT scanner. Data acquisition was obtained from the skull base through the vertex following intravenous administration of 100 ml of Isovue 370. MIP images were reconstructed from the axial data set. Post-processing of the angiographic images was performed, with multiplanar reformation and 3D reconstruction. Individualized dose optimization techniques were used for this CT. COMPARISON: None. FINDINGS: Normal bilateral petrous carotid arteries. Normal right cavernous carotid artery with a normal supraclinoid bifurcation. Normal left cavernous carotid artery with a normal supraclinoid bifurcation. Normal right A1 segments of the anterior cerebral artery. Normal left A1 segments of the anterior cerebral artery. Normal intact anterior communicating artery (ACOM). Normal bilateral A2 segments of the anterior cerebral arteries. Normal right M1 and M2 segments of the middle cerebral arteries, with a normal M1 bifurcation. Normal left M1 and M2 segments of the middle cerebral arteries, with a normal M1 bifurcation. Normal right posterior communicating artery (PCOM). Normal left posterior communicating artery (PCOM). Normal bilateral vertebral arteries. Normal basilar artery with a normal basilar bifurcation. The visualized bilateral superior cerebellar (SCA) arteries are normal. Normal bilateral P1, P2 and visualized P3 segments of the posterior cerebral arteries. There is no demonstrated aneurysm of the [place]. There is no demonstrated abnormality of the visualized brain. IMPRESSION: Normal [place] without a demonstrated aneurysm or hemodynamically significant stenosis. N.B. : The above information has been verbally conveyed by Bentley Montejo MD to Maria Fernanda Moss DO, on 09/02/2018 14:59:45 (ET). Electronically Signed: Bentley Montejo MD at 14:58 EST Tel [phone], Service support , STUDY: CTA NECK WITH CONTRAST REASON FOR EXAM: Female, 63 years old. History of CVA. RADIATION DOSAGE (If Supplied By Facility): CTDIvol = ( 26.69 ) mGy, DLP = ( 714.78 ) mGycm TECHNIQUE: CT angiography with multi-detector data acquisition was performed from the aortic arch to the skull base following intravenous administration of 100 ml of Isovue 370 contrast. MIP images were reconstructed from the axial data set. Post-processing of the angiographic images was performed, with multiplanar reformation and 3D reconstruction. Individualized dose optimization techniques were used for this CT. COMPARISON: None. FINDINGS: AORTIC ARCH: Normal visualized aortic arch. Normal origins of the brachiocephalic, left common carotid, and left subclavian arteries. RIGHT CAROTID ARTERIES: Normal right common carotid artery (CCA). Normal right common carotid bulb. Normal origin of the right internal carotid (ICA) artery without a hemodynamically significant stenosis. Normal visualized cervical portion of the right internal carotid artery. Normal origin of the right external carotid artery (ECA). LEFT CAROTID ARTERIES: Normal left common carotid artery (CCA). Normal left common carotid bulb. Normal origin of the left internal carotid (ICA) artery without a hemodynamically significant stenosis. Normal visualized cervical portion of the left internal carotid artery. Normal origin of the left external carotid artery (ECA). VERTEBRAL ARTERIES: Normal bilateral vertebral arteries. Opacification of the right maxillary sinus. CT/CTA Head W/WO Contrast IMPRESSION: Normal bilateral cervical carotid and vertebral arteries. N.B. : The above information has been verbally conveyed by Bentley Montejo MD to Maria Fernanda Moss DO, on 09/02/2018 14:59:45 (ET). Electronically Signed: Bentley Montejo MD at 15:00 EST Tel [phone], Service support , CC: Bhupendra Oliveira MD; Maria Fernanda Moss DO Pipe Recovery Specialist: Signed BRAIN/HEAD WITHOUT Observed: 09/02/2018 Status: F Source: MEARS CONTRAST 2:41 PM [facility] REPOSITORY [facility] Imaging Services [address] [place] [id number] Brain/Head without Contrast MR#: [id number] Acct: [id number] Name: TAMIA PANDA Rep #: [id number] : 1955 F 63 From: Bentley Montejo MD PCP: Bhupendra Oliveira MD Status: REG ER Study: Brain/Head without Contrast Date of Exam: 09/02/18 Exam# [id number] Ordering Dr: Maria Fernanda Moss DO STUDY: CT BRAIN WITHOUT CONTRAST REASON FOR EXAM: Female, 63 years old. CVA. RADIATION DOSAGE (If Supplied By Facility): CTDIvol = ( 44.99 ) mGy, DLP = ( 779.24 ) mGycm TECHNIQUE: Transaxial CT imaging of the brain was performed without administration of intravenous contrast material. Individualized dose optimization techniques were used for this CT. COMPARISON: Comparison is made with prior study dated August 05, 2018. FINDINGS: Normal soft tissue structures. Normal calvarium. There is mild cerebral atrophy with widening of the extra- axial spaces and ventricular dilatation. Stable focal and separation along the posterior superior aspect of the left parietal occipital lobe. Normal basal ganglia and thalami. Normal brainstem. Normal cerebellum. There is no intracranial hemorrhage. There are no findings of an acute ischemic infarction. Abscess right calcification of the cavernous portions of the internal carotid arteries. Partial opacification of the right maxillary sinus. Mucosal thickening of the ethmoid sinuses bilaterally. CT/Brain/Head without Contrast IMPRESSION: Chronic involutional changes of the brain. Stable examination. N.B. : The above information has been verbally conveyed by Bentley Montejo MD to Maria Fernanda Moss on 09/02/2018 15:27:56 (ET). Electronically Signed: Bentley Montejo MD at 15:29 EST Tel [phone], Service support , CC: Bhupendra Oliveira MD; Maria Fernanda Moss DO Pipe Recovery Specialist: Signed CBC W/DIFF, AUTOMATED Collected: 09/02/2018 Status: F Source: KINJAL 2:35 PM [facility] REPOSITORY TYPE CODE TESTS RESULT OUT OF RANGE REFERENCE UNITS LAB L100.1000 4.4-11.0 K/mm3 Normal WBC 6.3 LAB L100.1200 4.2-5.4 M/mm3 Normal RBC 4.52 LAB L100.1300 12.0-15.0 g/dl Normal HGB 12.8 LAB L100.1400 37-47 % Normal HCT 41.8 LAB L100.1500 81-99 fL Normal MCV 92.5 LAB L100.1600 27.0-32.0 pg Normal MCH 28.3 LAB L100.1700 32-36 g/gl Low MCHC 30.6 LAB L100.1810 11.6-14.6 % High RDW CV 15.9 LAB L100.1820 35.1-43.9 fl High RDW SD 53.7 LAB L100.1900 150-450 K/mm3 Normal PLT 210 LAB L100.2000 6.2-12.0 fl Normal MPV 10.8 LAB L100.2100 47-70 % Normal NEUT% 63.8 LAB L100.2200 19-41 % Low LY% 18.6 LAB L100.2300 0-10 % High MONO% 13.1 LAB L100.2400 0-5 % Normal EO% 3.9 LAB L100.2500 0-1 % Normal BASO% 0.3 LAB L100.2550 0.0-0.9 % Normal IM GRAN % 0.300 Result Comment: IG% - Immature Granulocytes (promyelocytes, myelocytes and metamyelocytes) > 1% indicates that a LEFT SHIFT is Present. LAB L100.2620 2.0-7.7 X10 3/uL Normal Absolute Neut 4.0 LAB L100.2720 0.83-4.51 X10 3/ul Normal Absolute Lymph 1.18 Performed By: #### L100.0100 #### [facility] [address] [place], [address] BASIC METABOLIC Collected: 09/02/2018 Status: F Source: MEARS PROFILE ([facility]) 2:35 PM [facility] REPOSITORY TYPE CODE TESTS RESULT OUT OF RANGE REFERENCE UNITS LAB L501.0100 74-106 mg/dL High GLU 142 Result Comment: Fasting Glucose result greater than or equal to 126 mg/dL suggests DIABETES MELLITUS per A.D.A. criteria. Please note revised GLUCOSE reference range effective 2017. LAB L501.1000 7-18 mg/dL Normal BUN 13 LAB L501.1100 0.55-1.02 mg/dL Normal CREAT,SERUM 0.81 Result Comment: The validity of the calculated GFR AND GFRAA in patients over 70 years has not been determined. Clinical correlation is essential. LAB L501.1110 >60 mL/min Normal EST GFR 76 Result Comment: Non- GFR Calc LAB L501.1115 >60 mL/min Normal EST GFR - AA 92 Result Comment: GFR Calc LAB L501.1255 ml/min Normal Estimated CRCL 58.81 LAB L501.1300 10-20 RATIO Normal BUN/CRE 16.1 LAB L501.2200 8.5-10 mg/dL Normal .1 CA 8.5 LAB L501.5300 136-14 mmol/L Normal 5 NA 145 LAB L501.5600 3.5-5. mmol/L Low 1 K 3.1 LAB L501.5900 98-107 mmol/L Normal CL 103 LAB L501.6100 21.0-3 mmol/L High 2.0 CO2 37.0 LAB L501.6200 5-15 Normal GAP 5 Performed By: #### L500.2500, L501.4010 #### [facility] [address] [place], [address] TROPONIN-I Collected: 09/02/2018 Status: F Source: MEARS 2:35 PM [facility] REPOSITORY TYPE CODE TESTS RESULT OUT OF RANGE REFERENCE UNITS LAB L501.4010 <0.045 ng/mL Normal < 0.015 TROPONIN-I Result Comment: TROPONIN-I EXPECTED VALUES <0.045 Negative 0.045 - 0.590 Consistent with Cardiac Damage > OR = 0.600 Critical Value Not every elevated troponin is indicative of DC. These values should be used with clinical judgement in examining the patient's clinical picture for diagnosis. To establish a diagnosis of DC versus myocardial injury, there must be a demonstrated rise and/or fall in the troponin values, in addition to ischemic symptoms, EKG changes, new regional wall motion abnormality, and/or angiographical evidence. PLEASE NOTE: REFERENCE RANGES EDITED 18 Performed By: #### L500.2500, L501.4010 #### [facility] [address] [place], [address] BNP,B-TYPE NATRIURETIC Collected: 09/02/2018 Status: F Source: MEARS PEPTIDE 2:35 PM [facility] REPOSITORY TYPE CODE TESTS RESULT OUT OF RANGE REFERENCE UNITS LAB L503.6620 0-100 pg/mL High B-TYPE 191.0 STONEY PEP Performed By: #### L503.6620 #### [facility] [address] [place], [address] BEDSIDE GLUCOSE Collected: 09/02/2018 Status: F Source: MEARS 2:29 PM [facility] REPOSITORY TYPE CODE TESTS RESULT OUT OF REFERENCE UNITS RANGE LAB L501.080 70-110 mg/dL High BEDSIDE GLU 169 Result Comment: MANAGEMENT OF PATIENT CARE PER NURSING PROTOCOL Performed By: #### L501.080 #### [facility] [place] [address] [address] PROGRESS Observed: 09/01/2018 Status: COMPLETED Source: RUSSELL 3:22 PM [facility] REPOSITORY HNO ID: [id number] Author: Nanda Rodriguez) Brian Service: (none) Author Type: Physician Type: Progress Notes Filed: 09/01/2018 3:33 PM Note Text: Reviewed previous urine culture results. Proteus resistant to macrobid. Will change macrobid to bactrim DS for 5 days. Will call in next 48 hours with urine culture results. PROGRESS Observed: 09/01/2018 Status: COMPLETED Source: RUSSELL 3:21 PM [facility] REPOSITORY HNO ID: [id number] Author: Saad Allen) Larry Service: (none) Author Type: Registered Nurse Type: Progress Notes Filed: 09/01/2018 3:32 PM Note Text: PRIMARY CARE COORDINATION QUICK NOTE Provider Action/FYI FYI Patient identified by name and date . TC to Bree at [facility], states they received Bactrim escript and they have in stock and will deliver tomorrow morning. Saad Silvestre RN September 01, 2018 3:32 PM TC to patient, instructed urine specimen indicates and UTI and PCP wants patient to take Bactrim DS twice daily x 5 days. Informed PCC will call [facility] and have them deliver it today or first thing tomorrow, verbalized understanding. Saad Silvestre RN PROGRESS Observed: 09/01/2018 Status: COMPLETED Source: RUSSELL 1:54 PM [facility] [place] REPOSITORY HNO ID: [id number] Author: Nanda Oliveira Service: (none) Author Type: Physician Type: Progress Notes Filed: 09/01/2018 3:33 PM Note Text: UA returned. Positive for WBC, RBC and nitrites which indicates UTI. Start macrobid BID for 5 days. Awaiting urine culture results. PROGRESS Observed: 09/01/2018 Status: COMPLETED Source: RUSSELL 11:54 AM [facility] [place] REPOSITORY HNO ID: [id number] Author: Nanda Rodriguez) Brian Service: (none) Author Type: Physician Type: Progress Notes Filed: 09/01/2018 11:54 AM Note Text: Reviewed. PROGRESS Observed: 09/01/2018 Status: COMPLETED Source: RUSSELL 11:39 AM [facility] REPOSITORY HNO ID: [id number] Author: Saad lAlen) Larry Service: (none) Author Type: Registered Nurse Type: Progress Notes Filed: 09/01/2018 11:48 AM Note Text: TRANSITION CARE MANAGEMENT (TCM) FOLLOW-UP NOTE Provider Action/FYI Weight yesterday Over Reports Dyspnea on moderate exertion (after pt is up a walking a while in home) Moist cough, occasionally expectorating mucous This AM toes and back of feet tight and swollen, no edema in ankles or legs Patient identified by name and date of : YES Spoke to patient Summary: Weight yesterday Over Reports Dyspnea on moderate exertion (after pt is up a walking a while in home) Moist cough, occasionally expectorating mucous This AM toes and back of feet tight and swollen, no edema in ankles or legs Discussed CHF and COPD Action Plans given at hospital Reinforced need to call when symptoms get to Yellow stage, verbalized understanding. Cleaning Supervisor plan for next outreach: Will follow up one week Signature Saad Silvestre RN September 01, 2018 MELCHOR Observed: 09/01/2018 Status: COMPLETED Source: RUSSELL 12:00 AM [facility] REPOSITORY Patient Outreach (FAMPWS) TAMIA PANDA ([id number]) 1955 F Date Time Provider Department 09/01/18 SAAD SILVESTRE) FAMDavidWS During your visit today, we recorded the following information about you: Saad Silvestre RN 09/01/2018 11:48 AM Signed TRANSITION CARE MANAGEMENT (TCM) FOLLOW-UP NOTE Provider Action/FYI Weight yesterday Over Reports Dyspnea on moderate exertion (after pt is up a walking a while in home) Moist cough, occasionally expectorating mucous This AM toes and back of feet tight and swollen, no edema in ankles or legs Patient identified by name and date of : YES Spoke to patient Summary: Weight yesterday 206 Over weekend [phone] Reports Dyspnea on moderate exertion (after pt is up a walking a while in home) Moist cough, occasionally expectorating mucous This AM toes and back of feet tight and swollen, no edema in ankles or legs Discussed CHF and COPD Action Plans given at hospital Reinforced need to call when symptoms get to Yellow stage, verbalized understanding. Cleaning Supervisor plan for next outreach: Will follow up one week Signature Saad Silvestre RN September 01, 2018 Nanda Oliveira MD 09/01/2018 11:54 AM Signed Reviewed. Nanda Oliveira MD 09/01/2018 3:33 PM Signed UA returned. Positive for WBC, RBC and nitrites which indicates UTI. Start macrobid BID for 5 days. Awaiting urine culture results. Saad Silvestre RN 09/01/2018 3:32 PM Signed PRIMARY CARE COORDINATION QUICK NOTE Provider Action/FYI FYI Patient identified by name and date . TC to Bree at [facility], states they received Bactrim escript and they have in stock and will deliver tomorrow morning. Saad Silvestre RN September 01, 2018 3:32 PM TC to patient, instructed urine specimen indicates and UTI and PCP wants patient to take Bactrim DS twice daily x 5 days. Informed PCC will call [facility] and have them deliver it today or first thing tomorrow, verbalized understanding. NINA Dumont MD 09/01/2018 3:33 PM Signed Reviewed previous urine culture results. Proteus resistant to macrobid. Will change macrobid to bactrim DS for 5 days. Will call in next 48 hours with urine culture results. Allergies As of Date: 09/01/2018 Noted Allergy Reaction ADHESIVE TAPE (ROSINS) 04/04/2015 5 - Intolerance Comments: Surgical tape leaves rash Irritates skin badly and blisters along with medical tape CATS 04/10/2016 14 - Other: See Comments Comments: Congested and itchy, difficulty breathing DOGS 04/10/2016 14 - Other: See Comments Comments: Congestion, sneezing, and difficulty breathing ORPHENADRINE 04/10/2016 16 - Unknown CAPSAICIN 03/02/2018 9 - Itching CIPROFLOXACIN 12/11/2011 14 - Other: See Comments Comments: Red, hot, itchy rash KEFLEX (CEPHALEXIN) 07/10/2016 4 - Hives Comments: Negative skin testing and successful completion of an oral amoxicillin challenge was completed on 03/02/2018. Cephalexin shares an almost identical R1 side chain to amoxicillin; therefore, it is unlikely that she would be at elevated risk for developing an IgE-mediated reaction (allergic/anaphylactic). If she should need this medication in the future, I would recommend giving the first dose in a supervised medical setting. If no reaction after 30 minutes, proceed with regular dosing. NIACIN 04/04/2015 16 - Unknown Comments: Pt states its niacin its niaspan REGLAN (METOCLOPRAMIDE HCL) 03/04/2017 14 - Other: See Comments Comments: Unable to sleep XANTHINES 10/18/2004 16 - Unknown ZOFRAN (ONDANSETRON HCL (PF)) 02/03/2018 9 - Itching Date Reviewed: 08/17/2018 Reviewed by: Clayton Serna Ma - Fully Assessed Reason for Visit: [facility] Follow Up [9690] Cmt: TCM F/U Call Order(s):sulfamethoxazole-trimethoprim (BACTRIM DS) 800-160 mg per tabletTake 1 tablet by mouth twice daily for 5 days.Disp: 10 tabletRfl: 0 Prescriptions as of 09/01/2018 Sig: ALBUTEROL SULFATE HFA 90 MCG/* Inhale 2 Puffs as instructed * ALCOHOL SWABS UAD to clean skin before test* ASPIRIN 81 MG TABLET,DELAYED * TAKE 1 TABLET BY MOUTH EVERY * ATORVASTATIN 40 MG TABLET TAKE 1 TABLET BY MOUTH DAILY BIPAP Bilevel PAP 16/12 cmH2O with * COMPOUNDED PRESCRIPTION BLOOD PRESSURE CUFF FOR HOME * BLOOD-GLUCOSE METER KIT UAD to test blood sugar BUSPIRONE 7.5 MG TABLET TAKE 1 TABLET BY MOUTH TWICE * CAPSAICIN 0.075 % TOPICAL CRE* Apply 1 application to affect* COMPOUNDED PRESCRIPTION Evaluation for diabetic shoes* COMPOUNDED PRESCRIPTION OCD Titration for portable ox* COMPOUNDED PRESCRIPTION Please fit for BiPAP mask. DILTIAZEM SR 180 MG 24 HR CAP TAKE 1 CAPSULE BY MOUTH EVERY* DULOXETINE 60 MG CAPSULE,MARIA EUGENIA* TAKE 1 CAPSULE BY MOUTH DAILY ELIQUIS 2.5 MG TABLET TAKE 1 TABLET BY MOUTH TWICE * ESTRADIOL 0.01% (0.1 MG/GRAM)* Apply pea-sized amount to per* FERROUS GLUCONATE 324 MG (38 * TAKE 1 TABLET BY MOUTH DAILY * FLUTICASONE 50 MCG/ACTUATION * Use 2 Sprays in each nostril * FUROSEMIDE 40 MG TABLET Take 1 tablet by mouth twice * CLAUDIA-KYLE 8.6 MG TABLET TAKE 1 TABLET BY MOUTH TWICE * GLUCOSE 4 GRAM CHEWABLE TABLET Take 4 tablets by mouth as ne* GLUCOSE 4 GRAM CHEWABLE TABLET TAKE 4 TABLETS BY MOUTH NE* IBUPROFEN 200 MG TABLET Take 200 mg by mouth every 6 * INCONTINENCE PAD, LINER, DISP* 1 Device as needed (urinary i* INSULIN GLARGINE (U-100) 100 * Inject 36 units subcutaneousl* INSULIN LISPRO (U-200) 200 UN* Inject subcutaneously 14 unit* ISOSORBIDE MONONITRATE ER 60 * Take 1.5 tablets by mouth onc* LANTUS SOLOSTAR U-100 INSULIN* INJECT 56 UNITS SUBCUTANEOUSL* LEVOTHYROXINE 100 MCG TABLET TAKE 1 TABLET BY MOUTH EVERY * LYRICA 100 MG CAPSULE TAKE 1 CAPSULE BY MOUTH THREE* METFORMIN ER 500 MG TABLET,EX* TAKE 2 TABLETS BY MOUTH TWICE* METOPROLOL TARTRATE 100 MG TA* TAKE 1 TABLET BY MOUTH TWICE * NITROGLYCERIN 0.4 MG SUBLINGU* DISSOLVE 1 TAB UNDER THE TONG* OMEPRAZOLE 20 MG CAPSULE,MARIA EUGENIA* TAKE 1 CAPSULE BY MOUTH EVERY* ONETOUCH DELICA LANCETS 30 GA* USE TO CHECK BLOOD SUGAR 4-5 * ONETOUCH ULTRA BLUE TEST STRIP USE DIRECTED TO CHECK BLOO* OXYGEN (HOME THERAPY) Inhale 3 L/min as instructed * PROMETHAZINE 25 MG TABLET Take 1 tablet by mouth every * PSEUDOEPHEDRINE-GUAIFENESIN E* Take 1 tablet by mouth twice * STOOL SOFTENER 100 MG CAPSULE TAKE 1 CAPSULE BY MOUTH DAILY SULFAMETHOXAZOLE 800 MG-TRIME* Take 1 tablet by mouth twice * ULTICARE PEN NEEDLE 31 GAUGE * USE DIRECTED. TO INJECT IN* VITAMIN C 500 MG TABLET TAKE 1 TABLET BY MOUTH DAILY Problem List As Of Date 09/01/2018 Noted Resolved SUBJECTIVE TINNITUS [H93.19] INVALID FOR* PARESH treated with BiPAP [G47.33] INVALID FOR* Hyperlipidemia [E78.5] INVALID FOR* Coronary disease [I25.10] INVALID FOR* Diabetes mellitus, type II (HCC) [E11.9] INVALID FOR* Morbid obesity (HCC) [E66.01] Hypothyroidism [E03.9] Anxiety [F41.9] Sleep apnea [G47.30] 02/14/2017 Essential hypertension [I10] Coronary artery disease of [place] artery of [place]* AF (paroxysmal atrial fibrillation) ([facility]) [I48.* COPD (chronic obstructive pulmonary disease) (H* GERD without esophagitis [K21.9] Dysphagia [R13.10] Constipation [K59.00] DM type 2 (diabetes mellitus, type 2) ([facility]) [E1* 02/14/2017 Shortness of breath [R06.02] 02/14/2017 Arthritis [M19.90] More... CHF (congestive heart failure) ([facility]) [I50.9] BPPV (benign paroxysmal positional vertigo) [H8*INVALID FOR* RLS (restless legs syndrome) [G25.81] INVALID FOR* Iron deficiency concern: RE RLS [E61.1] INVALID FOR* Tubular adenoma [D36.9] INVALID FOR* Incontinence [R32] More... Gastroparesis [K31.84] INVALID FOR* Pre-op testing [Z01.818] INVALID FOR* More... Hypercapnia [R06.89] INVALID FOR* S/P coronary artery stent placement [Z95.5] INVALID FOR* Stage 3 chronic kidney disease [N18.3] INVALID FOR* Depression [F32.9] INVALID FOR* Obesity, Class II, BMI 35-39.9 [E66.9] INVALID FOR* Prescriptions ordered this encounter Disp Refills Start End NITROFURANTOIN MONOHYDRATE AND MACROCR* 10 c* 0 09/01/2018 09/01/2018 Route: ORAL Sig: Take 1 capsule by mouth twice daily with meals for 5 days. SULFAMETHOXAZOLE 800 MG-TRIMETHOPRIM* 10 t* 0 09/01/2018 09/06/2018 Route: ORAL Sig: Take 1 tablet by mouth twice daily for 5 days. Medications Discontinued During This Encounter nitrofurantoin monohydrate and macro* 10 c* 0 09/01/2018 09/01/2018 Route: ORAL Sig: Take 1 capsule by mouth twice daily with meals for 5 days. Disc: Reason for discontinue is not on file. Encounter Status:Closed by SAAD SILVESTRE on 09/01/18 URINALYSIS, COMPLETE Collected: 08/31/2018 Status: F Source: KINJAL 6:30 PM [facility] [place] REPOSITORY Order Comment: How was Urine Obtained? CLEAN CATCH TYPE CODE TESTS RESULT OUT OF RANGE REFERENCE UNITS LAB L400.3000 Yellow COLOR Normal Yellow LAB L400.3050 Clear Normal CLARITY Sl. Cloudy LAB L400.3200 Normal mg/dl Normal GLUCOSE, UR Normal LAB L400.3300 Negative mg/dL Normal BILIRUBIN URINE Negative LAB L400.3400 Negative mg/dl Normal KETONE UR Negative LAB L400.3465 1.002-1.030 Normal SP.GR. DIPSTX 1.010 LAB L400.3550 5.0 - 8.0 pH UR Normal 8.0 LAB L400.3600 Negative mg/dl High PROT 30 DIPSTX LAB L400.3700 Normal mg/dl Normal UROBILI Normal LAB L400.3750 Negative High NITRITE UR Positive LAB L400.3780 Negative /ul High 25 OCCULT BLOOD-UR LAB L400.3800 Negative /ul High LEUK ESTERASE 500 LAB L400.4050 0-5 /hpf WBC Normal >100 SEEN LAB L400.4100 0-5 /hpf 0 Normal RBC-UA SEEN LAB L400.4150 5-10 /hpf SQUAM Normal EPI 5-10 SEEN LAB L400.4300 None Seen /hpf 0 Normal BACTERIA SEEN LAB L400.4350 <or=2+ /hpf 0 Normal MUCUS, URINE SEEN Performed By: #### L400.0001 #### [facility] [place], [address] Observed: 08/31/2018 Status: F Source: KINJAL CULTURE, URINE 6:30 PM [facility] [place] REPOSITORY Urine Culture ORGANISM 1: Proteus mirabilis [place] Count >100,000 Proteus mirabilis: REACTION Amoxacillin/Clavulanic Acid $ 4 S Ampicillin $ <=2 S Ampicillin/Sulbactam $ <=2 S Cefazolin $ <=4 S Cefepime $ <=1 S Ceftriaxone $ <=1 S Ciprofloxacin $ <=0.25 S Ertapenim $$$ <=0.5 S Gentamicin $ <=1 S Levofloxacin $ <=0.12 S Nitrofurantoin $ 128 R Piperacillin/Tazobactam $$ <=4 S Tobramycin $ <=1 S Trimethoprim/Sulfametho $ <=20 S (NF) indicates non-formulary drug at [facility]. Approval by Infectious Disease Specialist required before non-formulary drugs may be ordered and/or dispensed. Performed By: #### M100.0650 #### [facility] [address] [place], [address] PROGRESS Observed: 08/28/2018 Status: COMPLETED Source: RUSSELL 1:57 PM [facility] [place] REPOSITORY HNO ID: [id number] Author: Katelyn Churchill Ma Service: (none) Author Type: (none) Type: Progress Notes Filed: 08/28/2018 1:58 PM Note Text: Left detailed message for patient with pcp advice Katelyn Churchill Ma PROGRESS Observed: 08/28/2018 Status: COMPLETED Source: RUSSELL 12:53 PM [facility] REPOSITORY HNO ID: [id number] Author: Nanda Rodriguez) Brian Service: (none) Author Type: Physician Type: Progress Notes Filed: 08/28/2018 12:54 PM Note Text: Reviewed and agree. Recommend OTC stool softener, increased fiber, and adequate hydration as well to keep stools soft and prevent worsening of hemorrhoids. PROGRESS Observed: 08/28/2018 Status: COMPLETED Source: RUSSELL 12:13 PM [facility] REPOSITORY HNO ID: [id number] Author: Saad HarrisonRn) Larry Service: (none) Author Type: Registered Nurse Type: Progress Notes Filed: 08/28/2018 12:25 PM Note Text: PRIMARY CARE COORDINATION QUICK NOTE Provider Action/FYI Pt instructed to use Preparation H per J Podlogar CLIENT TECHNICAL SPECIALIST for enlarging hemorrhoids. Patient identified by name and date . TC to patient, informed she is to continue Lantus 36 units BID. PCP concerned pt isn't being consistent with diet and she needs to watch what she is eating, verbalized understanding. PCC will call in one week for BS Instructed to continue Lasix 40 mg BID and if SOB or cough gets worse call or go to ER if pt is really having problems, verbalized understanding and agreement. Pt states she has been having increased problems with hemorrhoids, no bleeding but they feel like they are getting bigger. Informed if they continue to enlarge sometimes pt's need surgery. Instructed per J Podlogar, CLIENT TECHNICAL SPECIALIST to use Preparation H faithfully and if they get worse call PCC or PCP, verbalized understanding. PROGRESS Observed: 08/28/2018 Status: COMPLETED Source: RUSSELL 11:47 AM [facility] REPOSITORY HNO ID: [id number] Author: Nanda Rodriguez) Brian Service: (none) Author Type: Physician Type: Progress Notes Filed: 08/28/2018 11:48 AM Note Text: Glucose readings again variable. Suspect she is not following diet consistently. Would not increase her Lantus from 36 units at this time. Continue 36 units BID and call in 1 week for further readings. Continue lasix. Call if cough and SOB worsening. PROGRESS Observed: 08/28/2018 Status: COMPLETED Source: RUSSELL 10:59 AM [facility] REPOSITORY HNO ID: [id number] Author: Saad Allen) Larry Service: (none) Author Type: Registered Nurse Type: Progress Notes Filed: 08/28/2018 11:17 AM Note Text: TRANSITION CARE MANAGEMENT (TCM) FOLLOW-UP NOTE Provider Action/FYI Wt this AM 211 Wt on 08/25 was 218 Taking Lasix 40 mg BID Frequent moist cough, productive last night, large amt of white mucous LE edema and SOB have decreased slightly Ordered dose of Lantus is 56 units BID, pt only taking 36 units BID Having highs and also BS in 70's Patient identified by name and date of : YES Spoke to patient Summary: Tamia Panda is a 63 year old female who reports glucose readings as noted. DATE 08/27 08/26 08/25 08/24 08/23 Fasting 127 259 118 206 Afternoon 71 117 114 163 Evening 303 78 220 Any low blood sugars during this period of reporting Yes Patient's diabetes medications as follows: LANTUS SOLOSTAR U-100 INSULIN 56 units twice daily PT TAKING 36 UNITS BID insulin lispro (HUMALOG KWIKPEN INSULIN) 200 unit/mL 14 units w/ breakfast, 22 units w/lunch, 24 units w/ dinner Cleaning Supervisor plan for next outreach: Will follow up one week Signature Saad Silvestre RN August 28, 2018 PROGRESS Observed: 08/26/2018 Status: COMPLETED Source: RUSSELL 4:14 PM [facility] REPOSITORY HNO ID: [id number] Author: Saad Allen) Larry Service: (none) Author Type: Registered Nurse Type: Progress Notes Filed: 08/26/2018 4:23 PM Note Text: PRIMARY CARE COORDINATION QUICK NOTE Provider Action/FYI TC to patient, left message asking pt to call PCC back regarding if she received Lasix yesterday and what her weight is today. Patient identified by name and date . Saad Silvestre RN August 26, 2018 4:07 PM CNPTOUTREACH Observed: 08/26/2018 Status: COMPLETED Source: RUSSELL 12:00 AM [facility] REPOSITORY Patient Outreach (FAMPWS) TAMIA PANDA ([id number]) 1955 F Date Time Provider Department 08/26/18 SAAD SILVESTRE (RN) FAMPWS During your visit today, we recorded the following information about you: Saad Silvestre RN 08/26/2018 4:23 PM Signed PRIMARY CARE COORDINATION QUICK NOTE Provider Action/FYI TC to patient, left message asking pt to call PCC back regarding if she received Lasix yesterday and what her weight is today. Patient identified by name and date . Saad Silvestre RN August 26, 2018 4:07 PM Saad Silvestre RN 08/28/2018 11:17 AM Signed TRANSITION CARE MANAGEMENT (TCM) FOLLOW-UP NOTE Provider Action/FYI Wt this AM 211 Wt on 08/25 was 218 Taking Lasix 40 mg BID Frequent moist cough, productive last night, large amt of white mucous LE edema and SOB have decreased slightly Ordered dose of Lantus is 56 units BID, pt only taking 36 units BID Having highs and also BS in 70's Patient identified by name and date of : YES Spoke to patient Summary: Tamiakarson Panda is a 63 year old female who reports glucose readings as noted. DATE 08/27 08/26 08/25 08/24 08/23 Fasting 127 259 118 206 Afternoon 71 117 114 163 Evening 303 78 220 Any low blood sugars during this period of reporting Yes Patient's diabetes medications as follows: LANTUS SOLOSTAR U-100 INSULIN 56 units twice daily PT TAKING 36 UNITS BID insulin lispro (HUMALOG KWIKPEN INSULIN) 200 unit/mL 14 units w/ breakfast, 22 units w/lunch, 24 units w/ dinner Cleaning Supervisor plan for next outreach: Will follow up one week Signature Saad Silvestre RN August 28, 2018 Nanda Oliveira MD 08/28/2018 11:48 AM Signed Glucose readings again variable. Suspect she is not following diet consistently. Would not increase her Lantus from 36 units at this time. Continue 36 units BID and call in 1 week for further readings. Continue lasix. Call if cough and SOB worsening. Saad Silvestre RN 08/28/2018 12:25 PM Signed PRIMARY CARE COORDINATION QUICK NOTE Provider Action/FYI Pt instructed to use Preparation H per J Podlogar CLIENT TECHNICAL SPECIALIST for enlarging hemorrhoids. Patient identified by name and date . TC to patient, informed she is to continue Lantus 36 units BID. PCP concerned pt isn't being consistent with diet and she needs to watch what she is eating, verbalized understanding. PCC will call in one week for BS Instructed to continue Lasix 40 mg BID and if SOB or cough gets worse call or go to ER if pt is really having problems, verbalized understanding and agreement. Pt states she has been having increased problems with hemorrhoids, no bleeding but they feel like they are getting bigger. Informed if they continue to enlarge sometimes pt's need surgery. Instructed per J Podlogar, CLIENT TECHNICAL SPECIALIST to use Preparation H faithfully and if they get worse call PCC or PCP, verbalized understanding. Nanda Oliveira MD 08/28/2018 12:54 PM Signed Reviewed and agree. Recommend OTC stool softener, increased fiber, and adequate hydration as well to keep stools soft and prevent worsening of hemorrhoids. Katelyn Churchill Ma 08/28/2018 1:58 PM Signed Left detailed message for patient with pcp advice Katelyn Churchill Ma Allergies As of Date: 08/26/2018 Noted Allergy Reaction ADHESIVE TAPE (ROSINS) 04/04/2015 5 - Intolerance Comments: Surgical tape leaves rash Irritates skin badly and blisters along with medical tape CATS 04/10/2016 14 - Other: See Comments Comments: Congested and itchy, difficulty breathing DOGS 04/10/2016 14 - Other: See Comments Comments: Congestion, sneezing, and difficulty breathing ORPHENADRINE 04/10/2016 16 - Unknown CAPSAICIN 03/02/2018 9 - Itching CIPROFLOXACIN 12/11/2011 14 - Other: See Comments Comments: Red, hot, itchy rash KEFLEX (CEPHALEXIN) 07/10/2016 4 - Hives Comments: Negative skin testing and successful completion of an oral amoxicillin challenge was completed on 03/02/2018. Cephalexin shares an almost identical R1 side chain to amoxicillin; therefore, it is unlikely that she would be at elevated risk for developing an IgE-mediated reaction (allergic/anaphylactic). If she should need this medication in the future, I would recommend giving the first dose in a supervised medical setting. If no reaction after 30 minutes, proceed with regular dosing. NIACIN 04/04/2015 16 - Unknown Comments: Pt states its niacin its niaspan REGLAN (METOCLOPRAMIDE HCL) 03/04/2017 14 - Other: See Comments Comments: Unable to sleep XANTHINES 10/18/2004 16 - Unknown ZOFRAN (ONDANSETRON HCL (PF)) 02/03/2018 9 - Itching Date Reviewed: 08/17/2018 Reviewed by: Clayton Serna Ma - Fully Assessed Reason for Visit: [facility] Follow Up [6824] Cmt: KATHLEEN F/U call [facility] D/C 08/06 Reason For Visit History Recorded Prescriptions as of 08/26/2018 Sig: FUROSEMIDE 40 MG TABLET Take 1 tablet by mouth twice * LANTUS SOLOSTAR U-100 INSULIN* INJECT 56 UNITS SUBCUTANEOUSL* IBUPROFEN 200 MG TABLET Take 200 mg by mouth every 6 * ELIQUIS 2.5 MG TABLET TAKE 1 TABLET BY MOUTH TWICE * ASPIRIN 81 MG TABLET,DELAYED * TAKE 1 TABLET BY MOUTH EVERY * CLAUDIA-KYLE 8.6 MG TABLET TAKE 1 TABLET BY MOUTH TWICE * STOOL SOFTENER 100 MG CAPSULE TAKE 1 CAPSULE BY MOUTH DAILY PROMETHAZINE 25 MG TABLET Take 1 tablet by mouth every * INSULIN GLARGINE (U-100) 100 * Inject 36 units subcutaneousl* X BUSPIRONE 5 MG TABLET Take 1.5 tablets by mouth twi* ALBUTEROL SULFATE HFA 90 MCG/* Inhale 2 Puffs as instructed * LYRICA 100 MG CAPSULE TAKE 1 CAPSULE BY MOUTH THREE* BIPAP Bilevel PAP 16/12 cmH2O with * X OMEPRAZOLE 20 MG CAPSULE,MARIA EUGENIA* Take 1 capsule by mouth once * INSULIN LISPRO (U-200) 200 UN* Inject subcutaneously 14 unit* METFORMIN ER 500 MG TABLET,EX* TAKE 2 TABLETS BY MOUTH TWICE* X METOPROLOL TARTRATE 100 MG TA* TAKE 1 TABLET BY MOUTH TWICE * X DULOXETINE 60 MG CAPSULE,MARIA EUGENIA* TAKE 1 CAPSULE BY MOUTH DAILY PSEUDOEPHEDRINE-GUAIFENESIN E* Take 1 tablet by mouth twice * ESTRADIOL 0.01% (0.1 MG/GRAM)* Apply pea-sized amount to per* COMPOUNDED PRESCRIPTION Please fit for BiPAP mask. BUX ULTRA BLUE TEST STRIP USE DIRECTED TO CHECK BLOO* ONETOUCH DELICA LANCETS 30 GA* USE TO CHECK BLOOD SUGAR 4-5 * COMPOUNDED PRESCRIPTION OCD Titration for portable ox* CAPSAICIN 0.075 % TOPICAL CRE* Apply 1 application to affect* ULTICARE PEN NEEDLE 31 GAUGE * USE DIRECTED. TO INJECT IN* VITAMIN C 500 MG TABLET TAKE 1 TABLET BY MOUTH DAILY FERROUS GLUCONATE 324 MG (38 * TAKE 1 TABLET BY MOUTH DAILY * ISOSORBIDE MONONITRATE ER 60 * Take 1.5 tablets by mouth onc* DILTIAZEM SR 180 MG 24 HR CAP TAKE 1 CAPSULE BY MOUTH EVERY* X ATORVASTATIN 40 MG TABLET TAKE 1 TABLET BY MOUTH DAILY X LEVOTHYROXINE 100 MCG TABLET TAKE 1 TABLET BY MOUTH EVERY * NITROGLYCERIN 0.4 MG SUBLINGU* DISSOLVE 1 TAB UNDER THE TONG* GLUCOSE 4 GRAM CHEWABLE TABLET Take 4 tablets by mouth as ne* OXYGEN (HOME THERAPY) Inhale 3 L/min as instructed * FLUTICASONE 50 MCG/ACTUATION * Use 2 Sprays in each nostril * COMPOUNDED PRESCRIPTION Evaluation for diabetic shoes* INCONTINENCE PAD, LINER, DISP* 1 Device as needed (urinary i* COMPOUNDED PRESCRIPTION BLOOD PRESSURE CUFF FOR HOME * BLOOD-GLUCOSE METER KIT UAD to test blood sugar ALCOHOL SWABS UAD to clean skin before test* Problem List As Of Date 08/26/2018 Noted Resolved SUBJECTIVE TINNITUS [H93.19] INVALID FOR* PARESH treated with BiPAP [G47.33] INVALID FOR* Hyperlipidemia [E78.5] INVALID FOR* Coronary disease [I25.10] INVALID FOR* Diabetes mellitus, type II (HCC) [E11.9] INVALID FOR* Morbid obesity (HCC) [E66.01] Hypothyroidism [E03.9] Anxiety [F41.9] Sleep apnea [G47.30] 02/14/2017 Essential hypertension [I10] Coronary artery disease of [place] artery of [place]* AF (paroxysmal atrial fibrillation) ([facility]) [I48.* COPD (chronic obstructive pulmonary disease) (H* GERD without esophagitis [K21.9] Dysphagia [R13.10] Constipation [K59.00] DM type 2 (diabetes mellitus, type 2) ([facility]) [E1* 02/14/2017 Shortness of breath [R06.02] 02/14/2017 Arthritis [M19.90] More... CHF (congestive heart failure) ([facility]) [I50.9] BPPV (benign paroxysmal positional vertigo) [H8*INVALID FOR* RLS (restless legs syndrome) [G25.81] INVALID FOR* Iron deficiency concern: RE RLS [E61.1] INVALID FOR* Tubular adenoma [D36.9] INVALID FOR* Incontinence [R32] More... Gastroparesis [K31.84] INVALID FOR* Pre-op testing [Z01.818] INVALID FOR* More... Hypercapnia [R06.89] INVALID FOR* S/P coronary artery stent placement [Z95.5] INVALID FOR* Stage 3 chronic kidney disease [N18.3] INVALID FOR* Depression [F32.9] INVALID FOR* Obesity, Class II, BMI 35-39.9 [E66.9] INVALID FOR* Encounter Status:Closed by SAAD SILVESTRE on 08/28/18 PROGRESS Observed: 08/21/2018 Status: COMPLETED Source: RUSSELL 1:04 PM [facility] REPOSITORY HNO ID: [id number] Author: Saad Davenport Service: (none) Author Type: Manager Material Type: Progress Notes Filed: 08/21/2018 1:05 PM Note Text: Mailed letter to the patient regarding diabetic eye exam. Saad Davenport MA PROGRESS Observed: 08/21/2018 Status: COMPLETED Source: RUSSELL 1:03 PM [facility] REPOSITORY HNO ID: [id number] Author: Saad Davenport Service: (none) Author Type: Manager Material Type: Progress Notes Filed: 08/21/2018 1:05 PM Note Text: [facility] CARE GAP REGISTRY DOCUMENTATION (OUTSIDE TEAMLET) Provider Action/FYI: Patient is overdue for diabetic eye exam. PSR Action/FYI: Patient needs a diabetic eye exam. Patient identified by name and date of . Last BP/Labs: Blood Pressure: Last 3 Encounter BP Readings: Date: BP: 08/17/2018 110/70 08/03/2018 102/70 06/03/2018 118/74 Lipids: Cholesterol, Total (mg/dL) Date Value 12/11/2017 160 07/20/2016 189 HDL Cholesterol (mg/dL) Date Value 12/11/2017 36 07/20/2016 67 LDL Cholesterol (mg/dL) Date Value 12/11/2017 76 07/20/2016 88 Triglyceride (mg/dL) Date Value 12/11/2017 238 07/20/2016 172 HGB A1C: Lab Results Component Value Date HBA1C 6.0 05/20/2018 HBA1C 6.3 12/11/2017 HBA1C 6.1 07/29/2017 TSH: TSH (uU/mL) Date Value 05/20/2018 0.891 07/29/2017 0.630 ) ? Patient has the following care gap registry disease diagnosis:DM ? Patient has the following open care gaps:DM - Needs dilated eye exam - HM overdue ? Last office visit: 08/17/2018 ? Future office visit: Saad Davenport MA 12 LEAD ELECTROCARDIOGRAM Observed: 08/21/2018 Status: F Source: KINJAL 9:08 AM [facility] REPOSITORY [facility] Cardiovascular Services [address] [place] [id number] 12 Lead EKG 08/05/18 1331 MR#: [id number] Acct: [id number] Name: TAMIA PANDA Rep #: [id number] : 1955 63 From: Bart Blas MD Attending Dr: Zuhair Cohn DO Status: DIS NICOLE Ordering Dr: Lynne Mccann MD Date: 08/05/18 Location: [facility] Sex: F C Admitted: 08/05/18 Test Reason : ALT LOC Blood Pressure : / mmHG Vent. Rate : 061 BPM Atrial Rate : 066 BPM P-R Int : 000 ms QRS Dur : 076 ms QT Int : 442 ms P-R-T Axes : 000 -11 138 degrees QTc Int : 444 ms Atrial fibrillation Nonspecific T wave abnormality Abnormal ECG Confirmed by BART BLAS MD ([id number]), SHYANNE Amanda ([id number]) on 08/07/2018 3:21:29 PM Referred By: JANNIE Confirmed By:BART BLAS MD 08/07/18 152 Date Bart Blas MD CC: Bhupendra Oliveira MD; Zuhair Cohn DO; Lynne Mccann MD Signed 12 LEAD ELECTROCARDIOGRAM Observed: 08/21/2018 Status: F Source: KINJAL 9:08 AM [facility] REPOSITORY [facility] Cardiovascular Services [address] [place] [id number] 12 Lead EKG 08/05/18 1434 MR#: [id number] Acct: [id number] Name: TAMIA PANDA Rep #: [id number] : 1955 63 From: Bart Blas MD Attending Dr: Zuhair Cohn DO Status: DIS NICOLE Ordering Dr: Lynne Mccann MD Date: 08/05/18 Location: [facility] Sex: F C Admitted: 08/05/18 Test Reason : TAJ Blood Pressure : / mmHG Vent. Rate : 056 BPM Atrial Rate : 326 BPM P-R Int : 000 ms QRS Dur : 072 ms QT Int : 450 ms P-R-T Axes : 000 -09 218 degrees QTc Int : 434 ms Atrial fibrillation with slow ventricular response ST AND T wave abnormality, consider lateral ischemia Abnormal ECG Confirmed by BART BLAS MD ([id number]), senior technical editor SHYANNE TERRAZAS ([id number]) on 08/07/2018 3:21:48 PM Referred By: MELISA Confirmed By:BART BLAS MD 08/07/18 1521 Date Bart Blas MD CC: Bhupendra Oliveira MD; Zuhair Mccann MD Signed CNPTOUTREACH Observed: 08/21/2018 Status: COMPLETED Source: RUSSELL 12:00 AM [facility] REPOSITORY Patient Outreach (FAMPWS) TAMIA PANDA ([id number]) 1955 F Date Time Provider Department 08/21/18 SAAD DAVENPORT[facility] During your visit today, we recorded the following information about you: Saad Davenport MA 08/21/2018 1:05 PM Signed [facility] CARE GAP REGISTRY DOCUMENTATION (OUTSIDE TEAMLET) Provider Action/FYI: Patient is overdue for diabetic eye exam. PSR Action/FYI: Patient needs a diabetic eye exam. Patient identified by name and date of . Last BP/Labs: Blood Pressure: Last 3 Encounter BP Readings: Date: BP: 08/17/2018 110/70 08/03/2018 102/70 06/03/2018 118/74 Lipids: Cholesterol, Total (mg/dL) Date Value 12/11/2017 160 07/20/2016 189 HDL Cholesterol (mg/dL) Date Value 12/11/2017 36 07/20/2016 67 LDL Cholesterol (mg/dL) Date Value 12/11/2017 76 07/20/2016 88 Triglyceride (mg/dL) Date Value 12/11/2017 238 07/20/2016 172 HGB A1C: Lab Results Component Value Date HBA1C 6.0 05/20/2018 HBA1C 6.3 12/11/2017 HBA1C 6.1 07/29/2017 TSH: TSH (uU/mL) Date Value 05/20/2018 0.891 07/29/2017 0.630 ) ? Patient has the following care gap registry disease diagnosis:DM ? Patient has the following open care gaps:DM - Needs dilated eye exam - HM overdue ? Last office visit: 08/17/2018 ? Future office visit: NELI Caceres MA 08/21/2018 1:05 PM Signed Mailed letter to the patient regarding diabetic eye exam. Saad Davenport MA Allergies As of Date: 08/21/2018 Noted Allergy Reaction ADHESIVE TAPE (ROSINS) 04/04/2015 5 - Intolerance Comments: Surgical tape leaves rash Irritates skin badly and blisters along with medical tape CATS 04/10/2016 14 - Other: See Comments Comments: Congested and itchy, difficulty breathing DOGS 04/10/2016 14 - Other: See Comments Comments: Congestion, sneezing, and difficulty breathing ORPHENADRINE 04/10/2016 16 - Unknown CAPSAICIN 03/02/2018 9 - Itching CIPROFLOXACIN 12/11/2011 14 - Other: See Comments Comments: Red, hot, itchy rash KEFLEX (CEPHALEXIN) 07/10/2016 4 - Hives Comments: Negative skin testing and successful completion of an oral amoxicillin challenge was completed on 03/02/2018. Cephalexin shares an almost identical R1 side chain to amoxicillin; therefore, it is unlikely that she would be at elevated risk for developing an IgE-mediated reaction (allergic/anaphylactic). If she should need this medication in the future, I would recommend giving the first dose in a supervised medical setting. If no reaction after 30 minutes, proceed with regular dosing. NIACIN 04/04/2015 16 - Unknown Comments: Pt states its niacin its niaspan REGLAN (METOCLOPRAMIDE HCL) 03/04/2017 14 - Other: See Comments Comments: Unable to sleep XANTHINES 10/18/2004 16 - Unknown ZOFRAN (ONDANSETRON HCL (PF)) 02/03/2018 9 - Itching Date Reviewed: 08/17/2018 Reviewed by: Clayton Serna Ma - Fully Assessed Reason for Visit: PHMA/Care Gap Outreach [3338] Cmt: eye exam Prescriptions as of 08/21/2018 Sig: LANTUS SOLOSTAR U-100 INSULIN* INJECT 56 UNITS SUBCUTANEOUSL* IBUPROFEN 200 MG TABLET Take 200 mg by mouth every 6 * AMOXICILLIN 875 MG-POTASSIUM * Take 1 tablet by mouth twice * ELIQUIS 2.5 MG TABLET TAKE 1 TABLET BY MOUTH TWICE * ASPIRIN 81 MG TABLET,DELAYED * TAKE 1 TABLET BY MOUTH EVERY * CLAUDIA-KYLE 8.6 MG TABLET TAKE 1 TABLET BY MOUTH TWICE * STOOL SOFTENER 100 MG CAPSULE TAKE 1 CAPSULE BY MOUTH DAILY PROMETHAZINE 25 MG TABLET Take 1 tablet by mouth every * INSULIN GLARGINE (U-100) 100 * Inject 36 units subcutaneousl* BUSPIRONE 5 MG TABLET Take 1.5 tablets by mouth twi* ALBUTEROL SULFATE HFA 90 MCG/* Inhale 2 Puffs as instructed * LYRICA 100 MG CAPSULE TAKE 1 CAPSULE BY MOUTH THREE* BIPAP Bilevel PAP 16/12 cmH2O with * OMEPRAZOLE 20 MG CAPSULE,MARIA EUGENIA* Take 1 capsule by mouth once * INSULIN LISPRO (U-200) 200 UN* Inject subcutaneously 14 unit* METOPROLOL TARTRATE 100 MG TA* TAKE 1 TABLET BY MOUTH TWICE * DULOXETINE 60 MG CAPSULE,MARIA EUGENIA* TAKE 1 CAPSULE BY MOUTH DAILY METFORMIN ER 500 MG TABLET,EX* TAKE 2 TABLETS BY MOUTH TWICE* PSEUDOEPHEDRINE-GUAIFENESIN E* Take 1 tablet by mouth twice * ESTRADIOL 0.01% (0.1 MG/GRAM)* Apply pea-sized amount to per* COMPOUNDED PRESCRIPTION Please fit for BiPAP mask. M/A-COMUCH ULTRA BLUE TEST STRIP USE DIRECTED TO CHECK BLOO* ONETOUCH DELICA LANCETS 30 GA* USE TO CHECK BLOOD SUGAR 4-5 * COMPOUNDED PRESCRIPTION OCD Titration for portable ox* CAPSAICIN 0.075 % TOPICAL CRE* Apply 1 application to affect* ULTICARE PEN NEEDLE 31 GAUGE * USE DIRECTED. TO INJECT IN* VITAMIN C 500 MG TABLET TAKE 1 TABLET BY MOUTH DAILY FERROUS GLUCONATE 324 MG (38 * TAKE 1 TABLET BY MOUTH DAILY * ISOSORBIDE MONONITRATE ER 60 * Take 1.5 tablets by mouth onc* ATORVASTATIN 40 MG TABLET TAKE 1 TABLET BY MOUTH DAILY DILTIAZEM SR 180 MG 24 HR CAP TAKE 1 CAPSULE BY MOUTH EVERY* LEVOTHYROXINE 100 MCG TABLET TAKE 1 TABLET BY MOUTH EVERY * NITROGLYCERIN 0.4 MG SUBLINGU* DISSOLVE 1 TAB UNDER THE TONG* GLUCOSE 4 GRAM CHEWABLE TABLET Take 4 tablets by mouth as ne* OXYGEN (HOME THERAPY) Inhale 3 L/min as instructed * FLUTICASONE 50 MCG/ACTUATION * Use 2 Sprays in each nostril * FUROSEMIDE 40 MG TABLET Take 1 tablet by mouth twice * COMPOUNDED PRESCRIPTION Evaluation for diabetic shoes* INCONTINENCE PAD, LINER, DISP* 1 Device as needed (urinary i* COMPOUNDED PRESCRIPTION BLOOD PRESSURE CUFF FOR HOME * BLOOD-GLUCOSE METER KIT UAD to test blood sugar ALCOHOL SWABS UAD to clean skin before test* Problem List As Of Date 08/21/2018 Noted Resolved SUBJECTIVE TINNITUS [H93.19] INVALID FOR* PARESH treated with BiPAP [G47.33] INVALID FOR* Hyperlipidemia [E78.5] INVALID FOR* Coronary disease [I25.10] INVALID FOR* Diabetes mellitus, type II ([facility]) [E11.9] INVALID FOR* Morbid obesity ([facility]) [E66.01] Hypothyroidism [E03.9] Anxiety [F41.9] Sleep apnea [G47.30] 02/14/2017 Essential hypertension [I10] Coronary artery disease of port lions artery of stoney* AF (paroxysmal atrial fibrillation) ([facility]) [I48.* COPD (chronic obstructive pulmonary disease) (H* GERD without esophagitis [K21.9] Dysphagia [R13.10] Constipation [K59.00] DM type 2 (diabetes mellitus, type 2) ([facility]) [E1* 02/14/2017 Shortness of breath [R06.02] 02/14/2017 Arthritis [M19.90] More... CHF (congestive heart failure) ([facility]) [I50.9] BPPV (benign paroxysmal positional vertigo) [H8*INVALID FOR* RLS (restless legs syndrome) [G25.81] INVALID FOR* Iron deficiency concern: RE RLS [E61.1] INVALID FOR* Tubular adenoma [D36.9] INVALID FOR* Incontinence [R32] More... Gastroparesis [K31.84] INVALID FOR* Pre-op testing [Z01.818] INVALID FOR* More... Hypercapnia [R06.89] INVALID FOR* S/P coronary artery stent placement [Z95.5] INVALID FOR* Stage 3 chronic kidney disease [N18.3] INVALID FOR* Depression [F32.9] INVALID FOR* Obesity, Class II, BMI 35-39.9 [E66.9] INVALID FOR* Letter Text [facility] Nanda Oliveira MD [id number] [phone] Dear Tamia Panda Your health care is very important to us. Our records indicate that you may be due for a diabetic eye exam. If you have had a diabetic eye exam within the last year, please have your records sent to us so that we may update your medical records. There is a medical records of release of information included in this letter. Please take the release to your eye doctor for future appointments to have your records forwarded to us. Important facts about diabetic eye exams Diabetic retinal exams should be done yearly for all patients with a diagnosis of diabetes. Risks such as diabetic retinopathy can be reduced with blood glucose control and early detection of potential problems. Diabetic retinopathy is damage to the small blood vessels in the retina that can lead to blindness Thank you, Nanda Oliveira MD Encounter Status:Closed by SAAD DAVENPORT on 08/21/18 PROGRESS Observed: 08/17/2018 Status: COMPLETED Source: RUSSELL 3:53 PM [facility] [place] REPOSITORY O ID: [id number] Author: Nanda Rodriguez) Brian Service: (none) Author Type: Physician Type: Progress Notes Filed: 08/17/2018 6:14 PM Note Text: Chief Complaint No chief complaint on file. HPI Tamia Panda is a 63 year old female who presents here today for Hospital Discharge Follow up. Admitted to [facility] from 08/05 to 08/06 with altered mental status. TCM note below in bold. TRANSITION CARE MANAGEMENT (TCM) INITIAL CONTACT ? ? Provider Action/FYI: ? Metformin and cardizem D/C'd by [facility] (due to Bradycardia and Hypoglycemia) ? ? Initial contact with patient post discharge, spoke to patient. Patient identified by name and . ? TRANSITION CARE MANAGEMENT: Date of Outreach: 08/07/2018 07/28/2018 Outreach Attempt 1: Contact Made Contact Made Date of Discharge 08/06/2018 07/26/2018 Some recent data might be hidden ? SUMMARY: -Pt discharged from [facility] on 11/15. -Follow up appointment on 08/14. -Medication review done: no, but TC to Jessica at [facility] to inform metformin and cardizem D/C'd at discharge from [facility], verbalized understanding, they will send someone out to remove medications from dose pack. -Admitted for: Toxic Encephalopathy (Acute) Bradycardia (Acute) ? CONCERNS: Informed pt PCP called in anastasiya roman to [facility] for cough. Noted moist cough while pt on phone Pt states BS this morning was 159, not low Reports bad headache. Discussed pt not taking son's tramadol for headache. Pt states she never took her son's tramadol even though pt told the squad that is what she had taken. TC to nurse, Lauren, left message asking if pt had low BS or low BP at visit today. ? NEW MEDICATIONS: None ? MEDS HELD/DISCONTINUED: metFORMIN ER (GLUCOPHAGE XR) 500 mg 2 TABLETS BY MOUTH TWICE A DAY diltiazem CD (CARDIZEM CD, CARTIA XT) 180 mg 1 CAPSULE BY MOUTH EVERY MORNING ? BRIEF HOSPITAL COURSE: Patient is a 63 year old F presents with confusion. EMS arrived and patient was found to have a bottle of tramadol. Patient did endorse taking 2 pills of tramadol. Patient did receive couple rounds of Narcan with minimal improvement. Patient did start coming to but was dozing off very easily. Patient was brought in and monitored. Drug Screen came back Negative. Patient also did have some bradycardia. Patient's Cartia was discontinued. Patient was on Cartia as well as metoprolol. The patient will continue with her metoprolol. Patient advised to avoid narcotics though now she is saying that she did not Phenergan and ibuprofen. It were to avoid the Phenergan but the story seems to be evolving at this time. Patient does have history of hypoglycemia which she did not have any episodes here but recommend patient stop her metformin and continue with her insulin. The combination of the oral plus insulin may be leading to have hyperglycemic episodes which she has had in the past. ? Saad Silvestre RN August 07, 2018 3:46 PM Patient was also seen in the ED at [facility] on 08/13 for complaint of SOB and cough. Diagnosed with COPD exacerbation after negative CXR with diminished breath sounds and wheezing on exam. Treated with 60 mg of prednisone and duoneb while inpatient. Sent home with rx for doxycycline and prednisone taper. Doxycycline was then changed to Augmentin after her urine culture returned showing Proteus which was resistant to macrobid as previously prescribed. Proteus sensitive to Ampicillin, so started on Augmentin to cover both. Patient states that she never took any Tramadol, she accidentally pointed at it when EMS came. States this was her son Kamari's medication who is not living there. Son Avery has moved out as well. Living alone in apartment. Has not had any further altered mental status since discharge. Cough has been slowly improving since ER visit on 08/13. Has not started taking the prednisone because she couldn't get to the pharmacy [place] Delivery from [facility] will bring it out to house tomorrow. Taking Augmentin as prescribed. Requiring rescue inhaler 2-3 times per day since discharge. Checking sugars BID since stopping metformin and readings typically 110-250. Had single low of 60 on 08/16 because she ate lunch late. Only symptoms with hypoglycemia were weak stomach. Tolerating PO diet. Able to perform all ADLs. Not requiring PT. Past medical history, appointments, medications, allergies reviewed. Previous Medical History PAST MEDICAL HISTORY Diagnosis Date - Acute chronic obstructive pulmonary disease with respiratory failure ([facility]) - AF (paroxysmal atrial fibrillation) ([facility]) - Anxiety - Arthritis Seeing Dr Elliott - Cervical cancer ([facility]) hysterectomy - CHF (congestive heart failure) ([facility]) - Chronic back pain Seeing Dr. Wallace - Constipation - COPD (chronic obstructive pulmonary disease) ([facility]) DME [facility] for BiPAP and [facility] [place] for O2. - Coronary atherosclerosis of port lions coronary artery Previously seeing Dr. Sosa - DDD (degenerative disc disease), lumbar - DM type 2 (diabetes mellitus, type 2) ([facility]) Seeing Dr. Foley for podiatry - DVT (deep venous thrombosis) ([facility]) Post op INA, BSO. - Dysphagia Seeing Dr. Beaulieu - Emphysema lung ([facility]) - Essential hypertension - Functional dyspepsia - Gastroparesis 2017 mild - GERD without esophagitis - Headache - History of colon polyps 11/28/2016 - Hyperlipidemia - Hypothyroidism - Incontinence Seeing Dr. Chapman - Lung nodule 02/[address] in 3 months - Morbid obesity ([facility]) - Muscle weakness - Nausea - PARESH on CPAP DME [facility] for BiPAP and [facility] [place] for O2. - PE (pulmonary thromboembolism) ([facility]) Post op INA/BSO. - Pneumonia - RLS (restless legs syndrome) - Shortness of breath - Sleep apnea using oxygen currently, not on CPAP - Unsteadiness on feet - Wheezing Previous Surgical History PAST SURGICAL HISTORY Procedure Laterality Date - CHOLECYSTECTOMY - COLONOS W/REM POLYP SNARE 11/28/2016 Repeat 2019 - COLONOSCOPY Has had multiple in the past with polyps, cannot remember dates - EGD W/O BRSH SPECIMEN W/BX 11/28/2016 - HERNIA REPAIR HX multiple - KNEE SURGERY HX Left x3 for torn cartilage - NASAL SURGERY PROCEDURE sinus - TOTAL ABDOM HYSTERECTOMY 1987 Cervical cancer - TUBAL LIGATION HX - WRIST SURGERY HX Right ganglion cyst removal x2 Family History FAMILY HISTORY Problem Relation Age of Onset - Coronary Artery Disease Mother - Coronary Artery Disease Father - Asthma Brother - Coronary Artery Disease Brother - Diabetes Sister - Hypertension Sister - Diabetes Sister - Heart Sister - Allergies Sister - Asthma Sister - Allergies Sister - Emphysema Sister Early stages - COPD Paternal Uncle Patient Allergies ALLERGIES Allergen Reactions - Adhesive Tape (Adrienne* Intolerance Surgical tape leaves rash Irritates skin badly and blisters along with medical tape - Cats Other: See Comments Congested and itchy, difficulty breathing - Dogs Other: See Comments Congestion, sneezing, and difficulty breathing - Orphenadrine Unknown - Capsaicin Itching - Ciprofloxacin Other: See Comments Red, hot, itchy rash - Keflex [Cephalexin] Hives Negative skin testing and successful completion of an oral amoxicillin challenge was completed on 03/02/2018. Cephalexin shares an almost identical R1 side chain to amoxicillin; therefore, it is unlikely that she would be at elevated risk for developing an IgE-mediated reaction (allergic/anaphylactic). If she should need this medication in the future, I would recommend giving the first dose in a supervised medical setting. If no reaction after 30 minutes, proceed with regular dosing. - Niacin Unknown Pt states its niacin its niaspan - Reglan [Metoclopram* Other: See Comments Unable to sleep - Xanthines Unknown - Zofran [Ondansetron* Itching Current Medications Current Outpatient Prescriptions on File Prior to Visit: LANTUS SOLOSTAR U-100 INSULIN 100 unit/mL (3 mL) inpn INJECT 56 UNITS SUBCUTANEOUSLY TWICE DAILY amoxicillin-clavulanic acid (AUGMENTIN) 875-125 mg per tablet Take 1 tablet by mouth twice daily for 10 days. nitrofurantoin monohydrate and macrocrystal (MACROBID) 100 mg capsule Take 1 capsule by mouth twice daily with meals for 5 days. benzonatate (TESSALON PERLE) 100 mg capsule Take 1 capsule by mouth three times daily as needed for up to 10 days. ELIQUIS 2.5 mg tab tab(s) TAKE 1 TABLET BY MOUTH TWICE A DAY aspirin, enteric coated (ASPIRIN, ENTERIC COATED) 81 mg EC tablet TAKE 1 TABLET BY MOUTH EVERY MORNING CLAUDIA-KYLE 8.6 mg tab TAKE 1 TABLET BY MOUTH TWICE A DAY STOOL SOFTENER 100 mg capsule TAKE 1 CAPSULE BY MOUTH DAILY promethazine (PHENERGAN) 25 mg tablet Take 1 tablet by mouth every 6 hours as needed. insulin glargine (LANTUS SOLOSTAR U-100 INSULIN) 100 unit/mL (3 mL) inpn Inject 36 units subcutaneously twice daily busPIRone (BUSPAR) 5 mg tablet Take 1.5 tablets by mouth twice daily. albuterol HFA (PROAIR HFA) 90 mcg/actuation inhaler Inhale 2 Puffs as instructed every 4 hours as needed for Wheezing/Shortness of Breath. LYRICA 100 mg capsule TAKE 1 CAPSULE BY MOUTH THREE TIMES A DAY BIPAP Bilevel PAP 16/12 cmH2O with 2 LPM oxygen bleed in, mask, tubing, filters, heated humidity, lifetime supplies. Dx: G47.33, G47.39. omeprazole (PRILOSEC) 20 mg capsule Take 1 capsule by mouth once daily. insulin lispro (HUMALOG KWIKPEN INSULIN) 200 unit/mL (3 mL) injection Inject subcutaneously 14 units with breakfast, 22 units with lunch, and 24 units with dinner metoprolol tartrate, short acting, (LOPRESSOR) 100 mg tablet TAKE 1 TABLET BY MOUTH TWICE A DAY DULoxetine (CYMBALTA) 60 mg capsule TAKE 1 CAPSULE BY MOUTH DAILY metFORMIN ER (GLUCOPHAGE XR) 500 mg 24 hr tablet TAKE 2 TABLETS BY MOUTH TWICE A DAY Pseudoephedrine-guaiFENesin (MUCINEX D MAXIMUM STRENGTH) 120- 1,200 mg Tb12 Take 1 tablet by mouth twice daily. estradiol (ESTRACE) 0.01 % (0.1 mg/gram) vaginal cream Apply pea-sized amount to perineum and 1 applicator vaginally Mon, Wed, Fri for atrophic vaginitis. COMPOUNDED PRESCRIPTION Please fit for BiPAP mask. ONETOUCH ULTRA BLUE TEST STRIP test strip USE DIRECTED TO CHECK BLOOD SUGAR 4-5 TIMES DAILY ONETOUCH DELICA LANCETS 30 gauge misc USE TO CHECK BLOOD SUGAR 4-5 TIMES DALIY COMPOUNDED PRESCRIPTION OCD Titration for portable oxygen concentrator Oxygen Flow Rate between 2-6 liters. To keep oxygen saturation at or above 92%. capsaicin (ZOSTRIX-HP) 0.075 % topical cream Apply 1 application to affected area four times daily. ULTICARE PEN NEEDLE 31 gauge x 5/16 ndle USE DIRECTED. TO INJECT INSULINS VITAMIN C 500 mg tablet TAKE 1 TABLET BY MOUTH DAILY Ferrous Gluconate (FERGON) 324 mg (38 mg iron) tablet TAKE 1 TABLET BY MOUTH DAILY WITH BREAKFAST isosorbide mononitrate ER (IMDUR) 60 mg 24 hr tablet Take 1.5 tablets by mouth once daily. In the morning atorvastatin (LIPITOR) 40 mg tablet TAKE 1 TABLET BY MOUTH DAILY diltiazem CD (CARDIZEM CD, CARTIA XT) 180 mg 24 hr capsule TAKE 1 CAPSULE BY MOUTH EVERY MORNING levothyroxine (SYNTHROID) 100 mcg tablet TAKE 1 TABLET BY MOUTH EVERY MORNING nitroglycerin sublingual (NITROQUICK) 0.4 mg SL tablet DISSOLVE 1 TAB UNDER THE TONGUE NEEDED FOR CHEST PAIN EVERY 5 MINUTES UP TO 3 TIMES. IF NO RELIEF CALL 911. glucose 4 gram chewable tablet Take 4 tablets by mouth as needed for Low Blood Sugar. OXYGEN, HOME THERAPY, Inhale 3 L/min as instructed as directed. fluticasone (FLONASE) 50 mcg/actuation nasal spray Use 2 Sprays in each nostril once daily. furosemide (LASIX) 40 mg tablet Take 1 tablet by mouth twice daily. COMPOUNDED PRESCRIPTION Evaluation for diabetic shoes and inserts Dx: E11.65, Z79.4 Incontinence Pad, Liner, Disp pads 1 Device as needed (urinary incontinence). Prevail incontinence pads. Dx: urinary incontinence. Size: small Blood Pressure Cuff - Home Use BLOOD PRESSURE CUFF FOR HOME USE. DX: LABILE BLOOD PRESSURE Blood-Glucose Meter (ONETOUCH ULTRA2) monitoring kit UAD to test blood sugar Alcohol Swabs padm UAD to clean skin before testing blood sugar and injecting insulins. No current facility-administered medications on file prior to visit. 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 Social History Main Topics Smoking status: Former Smoker Packs/day: 1.00 Years: 28.00 Types: Cigarettes Start date: 1978 Quit date: 09/22/2005 Smokeless tobacco: Never Used Comment: Father smoked in childhood. 2nd spouse smoked in home. Alcohol use: No Drug use: No Sexual activity: No Social History Narrative 1 year in current home. No basement, 1 parakeet. Room A/C. Electric baseboard heat. Review of Symptoms REVIEW OF SYSTEMS GENERAL: No weight loss, malaise or fevers RESPIRATORY: See HPI CARDIOVASCULAR: Negative for chest pain, leg swelling, hypertension, CHF or palpitations GI: No nausea, vomiting, or diarrhea SKIN: Negative for lesions, rash, and itching EXAM: BP 110/70 Pulse 72 Temp 36.4 ?C (97.5 ?F) (Tympanic) Resp 14 SpO2 94% General Appearance: Well appearing, alert, in no acute distress, well-hydrated, well nourished.AOx3. Skin: Skin color, texture, turgor normal, no suspicious rashes or lesions. Lungs: lungs clear to auscultation. No wheezing, rhonchi, rales. Heart: irregularly irregular rhythm without murmur, gallop, or rubs. No ectopy. Abdomen: Normal abdominal exam, Abdomen soft, non-tender. Bowel sounds normal. No masses, organomegaly. Extremities: No deformities, edema, skin discoloration, clubbing or cyanosis. Good capillary refill. . Health Maintenance List DILATED RETINAL EXAM due on 07/03/2018 BACILIO/ARB MED PRESCRIBED due on 08/22/2018 STATIN MED ADHERENCE due on 08/22/2018 DIABETES MED ADHERENCE due on 08/22/2018 HBA1C due on 11/19/2018 MAMMOGRAM due on 12/11/2018 LDL CHOLESTEROL due on 12/11/2018 URINE ALBUMIN:CREATININE RATIO due on 05/20/2019 DIABETIC FOOT EXAM due on 05/20/2019 SERUM CREATININE due on 05/20/2019 ANNUAL PCP TEAM CHRONIC DISEASE VISIT due on 08/03/2019 BP CONTROLLED (<130/80) due on 08/03/2019 COLORECTAL CANCER SCREENING,SEE MODIFIER due on 11/30/2019 PAP EVERY 5 YEARS due on 11/27/2021 HPV EVERY 5 YEARS due on 11/27/2021 DTAP,TDAP,TD(2 - Td) due on 10/02/2026 ONE PNEUMOVAX PRIOR TO AGE 65 Completed INFLUENZA Completed HEPATITIS C SCREENING Completed ASSESSMENT/PLAN: 1. Toxic encephalopathy - ICD9: 349.82, ICD10: G92 (primary diagnosis) Altered mental status cause unknown at this point. Urine drug screen negative and patient denies tramadol use. States she has been using Bipap nightly as recommended and is AOx3 today. Continue current DM regimen, finish augmentin for COPD exacerbation and UTI, start prednisone tomorrow as prescribed. Will f/u in 2 months. 2. COPD with exacerbation (HCC) - ICD9: 491.21, ICD10: J44.1 Improving. Continue augmentin, start prednisone. Albuterol inhaler PRN. 3. Acute cystitis without hematuria - ICD9: 595.0, ICD10: N30.00 Continue augmentin. 4. Bradycardia - ICD9: 427.89, ICD10: R00.1 Normal HR on exam today. Hold Cartia, continue metoprolol 5. Hospital discharge follow-up - ICD9: V67.59, ICD10: Z09 Mental status back at baseline. Continue treatment for COPD and UTI. F/u in 2 months. Nanda Oliveira MD CNOV Observed: 08/17/2018 Status: COMPLETED Source: RUSSELL 3:40 PM [facility] REPOSITORY Office Visit (FAMPWS) TAMIA PANDA ([id number]) 1955 F Date Time Provider Department 08/17/18 3:40 PM NANDA OLIVEIRA) FAMPWS During your visit today, we recorded the following information about you: Temperature Pulse Respiration Blood pressure 97.5 degrees 72/minute 14/minute 110/70 Nanda Oliveira MD 08/17/2018 6:14 PM Signed Chief Complaint No chief complaint on file. HPI Tamia Panda is a 63 year old female who presents here today for Hospital Discharge Follow up. Admitted to [facility] from 08/05 to 08/06 with altered mental status. TCM note below in bold. TRANSITION CARE MANAGEMENT (TCM) INITIAL CONTACT ? ? Provider Action/FYI: ? Metformin and cardizem D/C'd by [facility] (due to Bradycardia and Hypoglycemia) ? ? Initial contact with patient post discharge, spoke to patient. Patient identified by name and . ? TRANSITION CARE MANAGEMENT: Date of Outreach: 08/07/2018 07/28/2018 Outreach Attempt 1: Contact Made Contact Made Date of Discharge 08/06/2018 07/26/2018 Some recent data might be hidden ? SUMMARY: -Pt discharged from [facility] on 08/06. -Follow up appointment on 08/14. -Medication review done: no, but TC to Jessica at [facility] to inform metformin and cardizem D/C'd at discharge from [facility], verbalized understanding, they will send someone out to remove medications from dose pack. -Admitted for: Toxic Encephalopathy (Acute) Bradycardia (Acute) ? CONCERNS: Informed pt PCP called in anastasiya roman to [facility] for cough. Noted moist cough while pt on phone Pt states BS this morning was 159, not low Reports bad headache. Discussed pt not taking son's tramadol for headache. Pt states she never took her son's tramadol even though pt told the squad that is what she had taken. TC to nurse, moncho Aguilar message asking if pt had low BS or low BP at visit today. ? NEW MEDICATIONS: None ? MEDS HELD/DISCONTINUED: metFORMIN ER (GLUCOPHAGE XR) 500 mg 2 TABLETS BY MOUTH TWICE A DAY diltiazem CD (CARDIZEM CD, CARTIA XT) 180 mg 1 CAPSULE BY MOUTH EVERY MORNING ? BRIEF HOSPITAL COURSE: Patient is a 63 year old F presents with confusion. EMS arrived and patient was found to have a bottle of tramadol. Patient did endorse taking 2 pills of tramadol. Patient did receive couple rounds of Narcan with minimal improvement. Patient did start coming to but was dozing off very easily. Patient was brought in and monitored. Drug Screen came back Negative. Patient also did have some bradycardia. Patient's Cartia was discontinued. Patient was on Cartia as well as metoprolol. The patient will continue with her metoprolol. Patient advised to avoid narcotics though now she is saying that she did not Phenergan and ibuprofen. It were to avoid the Phenergan but the story seems to be evolving at this time. Patient does have history of hypoglycemia which she did not have any episodes here but recommend patient stop her metformin and continue with her insulin. The combination of the oral plus insulin may be leading to have hyperglycemic episodes which she has had in the past. ? Saad Silvestre RN August 07, 2018 3:46 PM Patient was also seen in the ED at [facility] on 08/13 for complaint of SOB and cough. Diagnosed with COPD exacerbation after negative CXR with diminished breath sounds and wheezing on exam. Treated with 60 mg of prednisone and duoneb while inpatient. Sent home with rx for doxycycline and prednisone taper. Doxycycline was then changed to Augmentin after her urine culture returned showing Proteus which was resistant to macrobid as previously prescribed. Proteus sensitive to Ampicillin, so started on Augmentin to cover both. Patient states that she never took any Tramadol, she accidentally pointed at it when EMS came. States this was her son Kamari's medication who is not living there. Son Avery has moved out as well. Living alone in apartment. Has not had any further altered mental status since discharge. Cough has been slowly improving since ER visit on 08/13. Has not started taking the prednisone because she couldn't get to the pharmacy [place] Delivery from [facility] will bring it out to house tomorrow. Taking Augmentin as prescribed. Requiring rescue inhaler 2-3 times per day since discharge. Checking sugars BID since stopping metformin and readings typically 110-250. Had single low of 60 on 08/16 because she ate lunch late. Only symptoms with hypoglycemia were weak stomach. Tolerating PO diet. Able to perform all ADLs. Not requiring PT. Past medical history, appointments, medications, allergies reviewed. Previous Medical History PAST MEDICAL HISTORY Diagnosis Date - Acute chronic obstructive pulmonary disease with respiratory failure (HCC) - AF (paroxysmal atrial fibrillation) ([facility]) - Anxiety - Arthritis Seeing Dr Elliott - Cervical cancer (HCC) hysterectomy - CHF (congestive heart failure) ([facility]) - Chronic back pain Seeing Dr. Rodrigo - Constipation - COPD (chronic obstructive pulmonary disease) ([facility]) DME [facility] for BiPAP and [facility] , [place] for O2. - Coronary atherosclerosis of port lions coronary artery Previously seeing Dr. Sosa - DDD (degenerative disc disease), lumbar - DM type 2 (diabetes mellitus, type 2) ([facility]) Seeing Dr. Foley for podiatry - DVT (deep venous thrombosis) ([facility]) Post op INA, BSO. - Dysphagia Seeing Dr. Beaulieu - Emphysema lung ([facility]) - Essential hypertension - Functional dyspepsia - Gastroparesis 2016 mild - GERD without esophagitis - Headache - History of colon polyps 11/28/2016 - Hyperlipidemia - Hypothyroidism - Incontinence Seeing Dr. Chapman - Lung nodule 02/[address] in 3 months - Morbid obesity ([facility]) - Muscle weakness - Nausea - PARESH on CPAP DME [facility] for BiPAP and [facility] [place] for O2. - PE (pulmonary thromboembolism) ([facility]) Post op INA/BSO. - Pneumonia - RLS (restless legs syndrome) - Shortness of breath - Sleep apnea using oxygen currently, not on CPAP - Unsteadiness on feet - Wheezing Previous Surgical History PAST SURGICAL HISTORY Procedure Laterality Date - CHOLECYSTECTOMY - COLONOS W/REM POLYP SNARE 11/28/2016 Repeat 2020 - COLONOSCOPY Has had multiple in the past with polyps, cannot remember dates - EGD W/O BRSH SPECIMEN W/BX 11/28/2016 - HERNIA REPAIR HX multiple - KNEE SURGERY HX Left x3 for torn cartilage - NASAL SURGERY PROCEDURE sinus - TOTAL ABDOM HYSTERECTOMY 1987 Cervical cancer - TUBAL LIGATION HX - WRIST SURGERY HX Right ganglion cyst removal x2 Family History FAMILY HISTORY Problem Relation Age of Onset - Coronary Artery Disease Mother - Coronary Artery Disease Father - Asthma Brother - Coronary Artery Disease Brother - Diabetes Sister - Hypertension Sister - Diabetes Sister - Heart Sister - Allergies Sister - Asthma Sister - Allergies Sister - Emphysema Sister Early stages - COPD Paternal Uncle Patient Allergies ALLERGIES Allergen Reactions - Adhesive Tape (Adrienne* Intolerance Surgical tape leaves rash Irritates skin badly and blisters along with medical tape - Cats Other: See Comments Congested and itchy, difficulty breathing - Dogs Other: See Comments Congestion, sneezing, and difficulty breathing - Orphenadrine Unknown - Capsaicin Itching - Ciprofloxacin Other: See Comments Red, hot, itchy rash - Keflex [Cephalexin] Hives Negative skin testing and successful completion of an oral amoxicillin challenge was completed on 03/02/2018. Cephalexin shares an almost identical R1 side chain to amoxicillin; therefore, it is unlikely that she would be at elevated risk for developing an IgE-mediated reaction (allergic/anaphylactic). If she should need this medication in the future, I would recommend giving the first dose in a supervised medical setting. If no reaction after 30 minutes, proceed with regular dosing. - Niacin Unknown Pt states its niacin its niaspan - Reglan [Metoclopram* Other: See Comments Unable to sleep - Xanthines Unknown - Zofran [Ondansetron* Itching Current Medications Current Outpatient Prescriptions on File Prior to Visit: LANTUS SOLOSTAR U-100 INSULIN 100 unit/mL (3 mL) inpn INJECT 56 UNITS SUBCUTANEOUSLY TWICE DAILY amoxicillin-clavulanic acid (AUGMENTIN) 875-125 mg per tablet Take 1 tablet by mouth twice daily for 10 days. nitrofurantoin monohydrate and macrocrystal (MACROBID) 100 mg capsule Take 1 capsule by mouth twice daily with meals for 5 days. benzonatate (TESSALON PERLE) 100 mg capsule Take 1 capsule by mouth three times daily as needed for up to 10 days. ELIQUIS 2.5 mg tab tab(s) TAKE 1 TABLET BY MOUTH TWICE A DAY aspirin, enteric coated (ASPIRIN, ENTERIC COATED) 81 mg EC tablet TAKE 1 TABLET BY MOUTH EVERY MORNING CLAUDIA-KYLE 8.6 mg tab TAKE 1 TABLET BY MOUTH TWICE A DAY STOOL SOFTENER 100 mg capsule TAKE 1 CAPSULE BY MOUTH DAILY promethazine (PHENERGAN) 25 mg tablet Take 1 tablet by mouth every 6 hours as needed. insulin glargine (LANTUS SOLOSTAR U-100 INSULIN) 100 unit/mL (3 mL) inpn Inject 36 units subcutaneously twice daily busPIRone (BUSPAR) 5 mg tablet Take 1.5 tablets by mouth twice daily. albuterol HFA (PROAIR HFA) 90 mcg/actuation inhaler Inhale 2 Puffs as instructed every 4 hours as needed for Wheezing/Shortness of Breath. LYRICA 100 mg capsule TAKE 1 CAPSULE BY MOUTH THREE TIMES A DAY BIPAP Bilevel PAP 16/12 cmH2O with 2 LPM oxygen bleed in, mask, tubing, filters, heated humidity, lifetime supplies. Dx: G47.33, G47.39. omeprazole (PRILOSEC) 20 mg capsule Take 1 capsule by mouth once daily. insulin lispro (HUMALOG KWIKPEN INSULIN) 200 unit/mL (3 mL) injection Inject subcutaneously 14 units with breakfast, 22 units with lunch, and 24 units with dinner metoprolol tartrate, short acting, (LOPRESSOR) 100 mg tablet TAKE 1 TABLET BY MOUTH TWICE A DAY DULoxetine (CYMBALTA) 60 mg capsule TAKE 1 CAPSULE BY MOUTH DAILY metFORMIN ER (GLUCOPHAGE XR) 500 mg 24 hr tablet TAKE 2 TABLETS BY MOUTH TWICE A DAY Pseudoephedrine-guaiFENesin (MUCINEX D MAXIMUM STRENGTH) 120- 1,200 mg Tb12 Take 1 tablet by mouth twice daily. estradiol (ESTRACE) 0.01 % (0.1 mg/gram) vaginal cream Apply pea-sized amount to perineum and 1 applicator vaginally Mon, Wed, Fri for atrophic vaginitis. COMPOUNDED PRESCRIPTION Please fit for BiPAP mask. ONETOUCH ULTRA BLUE TEST STRIP test strip USE DIRECTED TO CHECK BLOOD SUGAR 4-5 TIMES DAILY ONETOUCH DELICA LANCETS 30 gauge misc USE TO CHECK BLOOD SUGAR 4-5 TIMES DALIY COMPOUNDED PRESCRIPTION OCD Titration for portable oxygen concentrator Oxygen Flow Rate between 2-6 liters. To keep oxygen saturation at or above 92%. capsaicin (ZOSTRIX-HP) 0.075 % topical cream Apply 1 application to affected area four times daily. ULTICARE PEN NEEDLE 31 gauge x 5/16 ndle USE DIRECTED. TO INJECT INSULINS VITAMIN C 500 mg tablet TAKE 1 TABLET BY MOUTH DAILY Ferrous Gluconate (FERGON) 324 mg (38 mg iron) tablet TAKE 1 TABLET BY MOUTH DAILY WITH BREAKFAST isosorbide mononitrate ER (IMDUR) 60 mg 24 hr tablet Take 1.5 tablets by mouth once daily. In the morning atorvastatin (LIPITOR) 40 mg tablet TAKE 1 TABLET BY MOUTH DAILY diltiazem CD (CARDIZEM CD, CARTIA XT) 180 mg 24 hr capsule TAKE 1 CAPSULE BY MOUTH EVERY MORNING levothyroxine (SYNTHROID) 100 mcg tablet TAKE 1 TABLET BY MOUTH EVERY MORNING nitroglycerin sublingual (NITROQUICK) 0.4 mg SL tablet DISSOLVE 1 TAB UNDER THE TONGUE NEEDED FOR CHEST PAIN EVERY 5 MINUTES UP TO 3 TIMES. IF NO RELIEF CALL 911. glucose 4 gram chewable tablet Take 4 tablets by mouth as needed for Low Blood Sugar. OXYGEN, HOME THERAPY, Inhale 3 L/min as instructed as directed. fluticasone (FLONASE) 50 mcg/actuation nasal spray Use 2 Sprays in each nostril once daily. furosemide (LASIX) 40 mg tablet Take 1 tablet by mouth twice daily. COMPOUNDED PRESCRIPTION Evaluation for diabetic shoes and inserts Dx: E11.65, Z79.4 Incontinence Pad, Liner, Disp pads 1 Device as needed (urinary incontinence). Prevail incontinence pads. Dx: urinary incontinence. Size: small Blood Pressure Cuff - Home Use BLOOD PRESSURE CUFF FOR HOME USE. DX: LABILE BLOOD PRESSURE Blood-Glucose Meter (ONETOUCH ULTRA2) monitoring kit UAD to test blood sugar Alcohol Swabs padm UAD to clean skin before testing blood sugar and injecting insulins. No current facility-administered medications on file prior to visit. 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 Social History Main Topics Smoking status: Former Smoker Packs/day: 1.00 Years: 28.00 Types: Cigarettes Start date: 1978 Quit date: 09/22/2005 Smokeless tobacco: Never Used Comment: Father smoked in childhood. 2nd spouse smoked in home. Alcohol use: No Drug use: No Sexual activity: No Social History Narrative 1 year in current home. No basement, 1 parakeet. Room A/C. Electric baseboard heat. Review of Symptoms REVIEW OF SYSTEMS GENERAL: No weight loss, malaise or fevers RESPIRATORY: See HPI CARDIOVASCULAR: Negative for chest pain, leg swelling, hypertension, CHF or palpitations GI: No nausea, vomiting, or diarrhea SKIN: Negative for lesions, rash, and itching EXAM: BP 110/70 Pulse 72 Temp 36.4 ?C (97.5 ?F) (Tympanic) Resp 14 SpO2 94% General Appearance: Well appearing, alert, in no acute distress, well-hydrated, well nourished.AOx3. Skin: Skin color, texture, turgor normal, no suspicious rashes or lesions. Lungs: lungs clear to auscultation. No wheezing, rhonchi, rales. Heart: irregularly irregular rhythm without murmur, gallop, or rubs. No ectopy. Abdomen: Normal abdominal exam, Abdomen soft, non-tender. Bowel sounds normal. No masses, organomegaly. Extremities: No deformities, edema, skin discoloration, clubbing or cyanosis. Good capillary refill. . Health Maintenance List DILATED RETINAL EXAM due on 07/03/2018 BACILIO/ARB MED PRESCRIBED due on 08/22/2018 STATIN MED ADHERENCE due on 08/22/2018 DIABETES MED ADHERENCE due on 08/22/2018 HBA1C due on 11/19/2018 MAMMOGRAM due on 12/11/2018 LDL CHOLESTEROL due on 12/11/2018 URINE ALBUMIN:CREATININE RATIO due on 05/20/2019 DIABETIC FOOT EXAM due on 05/20/2019 SERUM CREATININE due on 05/20/2019 ANNUAL PCP TEAM CHRONIC DISEASE VISIT due on 08/03/2019 BP CONTROLLED (<130/80) due on 08/03/2019 COLORECTAL CANCER SCREENING,SEE MODIFIER due on 11/30/2019 PAP EVERY 5 YEARS due on 11/27/2021 HPV EVERY 5 YEARS due on 11/27/2021 DTAP,TDAP,TD(2 - Td) due on 10/02/2026 ONE PNEUMOVAX PRIOR TO AGE 65 Completed INFLUENZA Completed HEPATITIS C SCREENING Completed ASSESSMENT/PLAN: 1. Toxic encephalopathy - ICD9: 349.82, ICD10: G92 (primary diagnosis) Altered mental status cause unknown at this point. Urine drug screen negative and patient denies tramadol use. States she has been using Bipap nightly as recommended and is AOx3 today. Continue current DM regimen, finish augmentin for COPD exacerbation and UTI, start prednisone tomorrow as prescribed. Will f/u in 2 months. 2. COPD with exacerbation (HCC) - ICD9: 491.21, ICD10: J44.1 Improving. Continue augmentin, start prednisone. Albuterol inhaler PRN. 3. Acute cystitis without hematuria - ICD9: 595.0, ICD10: N30.00 Continue augmentin. 4. Bradycardia - ICD9: 427.89, ICD10: R00.1 Normal HR on exam today. Hold Cartia, continue metoprolol 5. Hospital discharge follow-up - ICD9: V67.59, ICD10: Z09 Mental status back at baseline. Continue treatment for COPD and UTI. F/u in 2 months. Nanda Oliveira MD Referring Provider: NANDA OLIVEIRA) [[id number]] Allergies As of Date: 08/17/2018 Noted Allergy Reaction ADHESIVE TAPE (ROSINS) 04/04/2015 5 - Intolerance Comments: Surgical tape leaves rash Irritates skin badly and blisters along with medical tape CATS 04/10/2016 14 - Other: See Comments Comments: Congested and itchy, difficulty breathing DOGS 04/10/2016 14 - Other: See Comments Comments: Congestion, sneezing, and difficulty breathing ORPHENADRINE 04/10/2016 16 - Unknown CAPSAICIN 03/02/2018 9 - Itching CIPROFLOXACIN 12/11/2011 14 - Other: See Comments Comments: Red, hot, itchy rash KEFLEX (CEPHALEXIN) 07/10/2016 4 - Hives Comments: Negative skin testing and successful completion of an oral amoxicillin challenge was completed on 03/02/2018. Cephalexin shares an almost identical R1 side chain to amoxicillin; therefore, it is unlikely that she would be at elevated risk for developing an IgE-mediated reaction (allergic/anaphylactic). If she should need this medication in the future, I would recommend giving the first dose in a supervised medical setting. If no reaction after 30 minutes, proceed with regular dosing. NIACIN 04/04/2015 16 - Unknown Comments: Pt states its niacin its niaspan REGLAN (METOCLOPRAMIDE HCL) 03/04/2017 14 - Other: See Comments Comments: Unable to sleep XANTHINES 10/18/2004 16 - Unknown ZOFRAN (ONDANSETRON HCL (PF)) 02/03/2018 9 - Itching Date Reviewed: 08/17/2018 Reviewed by: Clayton Serna Ma - Fully Assessed Reason for Visit: Hospital Follow Up [177] Primary Visit Diagnosis:Toxic encephalopathy [G92] Other Visit Diagnoses:COPD with exacerbation (HCC) [J44.1] Acute cystitis without hematuria [N30.00] Bradycardia [R00.1] Hospital discharge follow-up [Z09] Prescriptions as of 08/17/2018 Sig: IBUPROFEN 200 MG TABLET Take 200 mg by mouth every 6 * LANTUS SOLOSTAR U-100 INSULIN* INJECT 56 UNITS SUBCUTANEOUSL* AMOXICILLIN 875 MG-POTASSIUM * Take 1 tablet by mouth twice * NITROFURANTOIN MONOHYDRATE AND * Take 1 capsule by mouth twice* BENZONATATE 100 MG CAPSULE Take 1 capsule by mouth three* ELIQUIS 2.5 MG TABLET TAKE 1 TABLET BY MOUTH TWICE * ASPIRIN 81 MG TABLET,DELAYED * TAKE 1 TABLET BY MOUTH EVERY * CLAUDIA-KYLE 8.6 MG TABLET TAKE 1 TABLET BY MOUTH TWICE * STOOL SOFTENER 100 MG CAPSULE TAKE 1 CAPSULE BY MOUTH DAILY PROMETHAZINE 25 MG TABLET Take 1 tablet by mouth every * INSULIN GLARGINE (U-100) 100 * Inject 36 units subcutaneousl* BUSPIRONE 5 MG TABLET Take 1.5 tablets by mouth twi* ALBUTEROL SULFATE HFA 90 MCG/* Inhale 2 Puffs as instructed * LYRICA 100 MG CAPSULE TAKE 1 CAPSULE BY MOUTH THREE* BIPAP Bilevel PAP 16/12 cmH2O with * OMEPRAZOLE 20 MG CAPSULE,MARIA EUGENIA* Take 1 capsule by mouth once * INSULIN LISPRO (U-200) 200 UN* Inject subcutaneously 14 unit* METOPROLOL TARTRATE 100 MG TA* TAKE 1 TABLET BY MOUTH TWICE * DULOXETINE 60 MG CAPSULE,MARIA EUGENIA* TAKE 1 CAPSULE BY MOUTH DAILY METFORMIN ER 500 MG TABLET,EX* TAKE 2 TABLETS BY MOUTH TWICE* PSEUDOEPHEDRINE-GUAIFENESIN E* Take 1 tablet by mouth twice * ESTRADIOL 0.01% (0.1 MG/GRAM)* Apply pea-sized amount to per* COMPOUNDED PRESCRIPTION Please fit for BiPAP mask. M/A-COMUCH ULTRA BLUE TEST STRIP USE DIRECTED TO CHECK BLOO* ONETOUCH DELICA LANCETS 30 GA* USE TO CHECK BLOOD SUGAR 4-5 * COMPOUNDED PRESCRIPTION OCD Titration for portable ox* CAPSAICIN 0.075 % TOPICAL CRE* Apply 1 application to affect* ULTICARE PEN NEEDLE 31 GAUGE * USE DIRECTED. TO INJECT IN* VITAMIN C 500 MG TABLET TAKE 1 TABLET BY MOUTH DAILY FERROUS GLUCONATE 324 MG (38 * TAKE 1 TABLET BY MOUTH DAILY * ISOSORBIDE MONONITRATE ER 60 * Take 1.5 tablets by mouth onc* ATORVASTATIN 40 MG TABLET TAKE 1 TABLET BY MOUTH DAILY DILTIAZEM SR 180 MG 24 HR CAP TAKE 1 CAPSULE BY MOUTH EVERY* LEVOTHYROXINE 100 MCG TABLET TAKE 1 TABLET BY MOUTH EVERY * NITROGLYCERIN 0.4 MG SUBLINGU* DISSOLVE 1 TAB UNDER THE TONG* GLUCOSE 4 GRAM CHEWABLE TABLET Take 4 tablets by mouth as ne* OXYGEN (HOME THERAPY) Inhale 3 L/min as instructed * FLUTICASONE 50 MCG/ACTUATION * Use 2 Sprays in each nostril * FUROSEMIDE 40 MG TABLET Take 1 tablet by mouth twice * COMPOUNDED PRESCRIPTION Evaluation for diabetic shoes* INCONTINENCE PAD, LINER, DISP* 1 Device as needed (urinary i* COMPOUNDED PRESCRIPTION BLOOD PRESSURE CUFF FOR HOME * BLOOD-GLUCOSE METER KIT UAD to test blood sugar ALCOHOL SWABS UAD to clean skin before test* Problem List As Of Date 08/17/2018 Noted Resolved SUBJECTIVE TINNITUS [H93.19] INVALID FOR* PARESH treated with BiPAP [G47.33] INVALID FOR* Hyperlipidemia [E78.5] INVALID FOR* Coronary disease [I25.10] INVALID FOR* Diabetes mellitus, type II ([facility]) [E11.9] INVALID FOR* Morbid obesity ([facility]) [E66.01] Hypothyroidism [E03.9] Anxiety [F41.9] Sleep apnea [G47.30] 02/14/2017 Essential hypertension [I10] Coronary artery disease of [place] artery of [place]* AF (paroxysmal atrial fibrillation) ([facility]) [I48.* COPD (chronic obstructive pulmonary disease) (H* GERD without esophagitis [K21.9] Dysphagia [R13.10] Constipation [K59.00] DM type 2 (diabetes mellitus, type 2) ([facility]) [E1* 02/14/2017 Shortness of breath [R06.02] 02/14/2017 Arthritis [M19.90] More... CHF (congestive heart failure) ([facility]) [I50.9] BPPV (benign paroxysmal positional vertigo) [H8*INVALID FOR* RLS (restless legs syndrome) [G25.81] INVALID FOR* Iron deficiency concern: RE RLS [E61.1] INVALID FOR* Tubular adenoma [D36.9] INVALID FOR* Incontinence [R32] More... Gastroparesis [K31.84] INVALID FOR* Pre-op testing [Z01.818] INVALID FOR* More... Hypercapnia [R06.89] INVALID FOR* S/P coronary artery stent placement [Z95.5] INVALID FOR* Stage 3 chronic kidney disease [N18.3] INVALID FOR* Depression [F32.9] INVALID FOR* Obesity, Class II, BMI 35-39.9 [E66.9] INVALID FOR* Disposition: Return in about 2 months (around 10/17/2018). Follow-up and Disposition History Recorded Encounter Status:Closed by NANDA OLIVEIRA MD on 08/17/18 EMERGENCY DEPARTMENT Observed: 08/13/2018 Status: F Source: MEARS SUMMARY 10:06 PM [facility] REPOSITORY [facility] Medical Records Department [address] [place] [address] Emergency Department Summary 08/13/18 1903 MR#: [id number] Acct: [id number] Name: TAMIA PANDA Rep #: [id number] : 1955 63 From: Eleazar Brooks MD PCP: Bhupendra Oliveira MD Status: REG ER - ER Visit Summary Date of Service: 08/13/18 Chief Complaint: Shortness of breath and productive cough History of Present Illness: The patient is a 63 F who has history of COPD dependent on oxygen at 2-3 L by nasal cannula who presents with a productive cough of brown colored sputum. She states she had increased shortness of breath over the past 2 weeks. The brown sputum was noted to 3 days ago. She complains of subjective fever and sweats this morning. She denies any ocular, visual or auditory symptoms. She does complain of shortness of breath at rest. She denies chest pain of any type. She denies abdominal pain, nausea, vomiting or diarrhea. She is presently on nitrofurantoin for urinary tract infection. She denies leg pain, swelling or discoloration. She denies history of pulmonary embolus or DVT. Patient denies orthopnea or PND. She denies headache, anesthesia, paresthesia or motor weakness. She does report bruising easily. She states her last dose of prednisone was 3 weeks ago. Physical Examination: Vital signs noted and blood pressure is slightly elevated 127/85. She is not hypoxic. BMI is 39.1. HEENT exam is unremarkable. Her voice is slightly hoarse. There is diminished breath sounds bilaterally with increased expiratory phase and high-pitched wheezing noted bilaterally. Heart is regular without murmur, gallop or rub. Abdomen is soft nontender. Lower extremity exam reveals no swelling, discoloration, asymmetry, leg vein distention, palpable cords or tenderness on the distribution of deep venous system. Neuro exam is nonfocal. Test Results: Two-view chest x-ray reveals chronic changes. What appeared to be an infiltrate right lower lobe on August 05 has resolved. Cardiac silhouette is normal. Mediastinum is normal. Chronic changes are noted. Osseous structures are unchanged. White count is normal with no bandemia. Electric panels marked for glucose of 194. Emergency Department Course and Treatment: Patient received 60 mg of prednisone since she was recently on steroids. Chest x-ray was obtained to evaluate for pneumonia. Blood work was obtained to assess white count, H AND H and kidney function. She was treated with DuoNeb followed by 2 albuterol treatments. Treatment Plan: Since patient is no longer wheezing will treat with doxycycline. Since pharmacies are closed she was here first dose in the emergency department prior to discharge and placed on a burst of prednisone. Disposition: Discharged home in stable and improved condition Impression: 1. Acute exacerbation of COPD 2. Acute exacerbation of chronic bronchitis 3. Bronchospasm secondary to above This note was generated with Cureeo dictation software. It may contain incorrect words, spelling, and punctuation that were not noted in review of the chart prior to signing ED Disposition - Plan for ED Patient: Disposition: Home or Assisted Living Chief Complaint: Shortness of Breath Instructions: ED COPD Flare Prescriptions: Prednisone [Deltasone] 40 mg PO DAILY #10 tab Doxycycline Monohydrate 100 mg PO BID #14 cap Referrals: Bhupendra Oliveira MD [Primary Care Provider] - 3-5 Days if not improving What to do if you have Problems For any increased pain, shortness of breath, bleeding, nausea or vomiting, chest pain, or any unexpected problems, contact your Primary Care Provider. Call [facility] ([phone]) or report to the closest Emergency Room. Call 911 if necessary. 08/13/182205 <Electronically signed by Eleazar Brooks MD> Date Eleazar Brooks MD Cosigner Signature (If Indicated): Date CC: Bhupendra Oliveira MD CBC W/DIFF, AUTOMATED Collected: 08/13/2018 Status: F Source: KINJAL 7:05 PM [facility] REPOSITORY TYPE CODE TESTS RESULT OUT OF RANGE REFERENCE UNITS LAB L100.1000 4.4-11.0 K/mm3 Normal WBC 7.4 LAB L100.1200 4.2-5.4 M/mm3 Normal RBC 4.49 LAB L100.1300 12.0-15.0 g/dl Normal HGB 12.8 LAB L100.1400 37-47 % Normal HCT 41.8 LAB L100.1500 81-99 fL Normal MCV 93.1 LAB L100.1600 27.0-32.0 pg Normal MCH 28.5 LAB L100.1700 32-36 g/gl Low MCHC 30.6 LAB L100.1810 11.6-14.6 % High RDW CV 16.3 LAB L100.1820 35.1-43.9 fl High RDW SD 54.7 LAB L100.1900 150-450 K/mm3 Normal PLT 233 LAB L100.2000 6.2-12.0 fl Normal MPV 10.5 LAB L100.2100 47-70 % High NEUT% 72.3 LAB L100.2200 19-41 % Low LY% 10.9 LAB L100.2300 0-10 % High MONO% 11.7 LAB L100.2400 0-5 % Normal EO% 4.4 LAB L100.2500 0-1 % Normal BASO% 0.3 LAB L100.2550 0.0-0.9 % Normal IM GRAN % 0.400 Result Comment: IG% - Immature Granulocytes (promyelocytes, myelocytes and metamyelocytes) > 1% indicates that a LEFT SHIFT is Present. LAB L100.2620 2.0-7.7 X10 3/uL Normal Absolute Neut 5.3 LAB L100.2720 0.83-4.51 X10 3/ul Low Absolute Lymph 0.80 Performed By: #### L100.0100 #### [facility] [place], [address] BASIC METABOLIC Collected: 08/13/2018 Status: F Source: KINJAL PROFILE (BMP) 7:05 PM [facility] REPOSITORY TYPE CODE TESTS RESULT OUT OF RANGE REFERENCE UNITS LAB L501.0100 74-106 mg/dL High GLU 194 Result Comment: Fasting Glucose result greater than or equal to 126 mg/dL suggests DIABETES MELLITUS per A.D.A. criteria. Please note revised GLUCOSE reference range effective 2017. LAB L501.1000 7-18 mg/dL Normal BUN 12 LAB L501.1100 0.55-1.02 mg/dL Normal CREAT,SERUM 0.90 Result Comment: The validity of the calculated GFR AND GFRAA in patients over 70 years has not been determined. Clinical correlation is essential. LAB L501.1110 >60 mL/min Normal EST GFR 67 Result Comment: Non- GFR Calc LAB L501.1115 >60 mL/min Normal EST GFR - AA 81 Result Comment: GFR Calc LAB L501.1255 ml/min Normal Estimated CRCL 50.60 LAB L501.1300 10-20 RATIO Normal BUN/CRE 13.3 LAB L501.2200 8.5-10 mg/dL Normal .1 CA 8.6 LAB L501.5300 136-14 mmol/L Normal 5 NA 141 LAB L501.5600 3.5-5. mmol/L Normal 1 K 3.7 LAB L501.5900 98-107 mmol/L High CL 108 LAB L501.6100 21.0-3 mmol/L Normal 2.0 CO2 31.0 LAB L501.6200 5-15 Low GAP 2 Performed By: #### L500.2500 #### [facility] [address] [facility] [place], [address] CHEST PA AND LATERAL Observed: 08/13/2018 Status: F Source: MEARS 6:53 PM [facility] REPOSITORY [facility] Imaging Services [address] [place] [address] Chest PA and Lateral MR#: [id number] Acct: [id number] Name: TAMIA PANDA Jennifer Rep #: [id number] : 1955 F 63 From: Leonides Wilburn DO PCP: Bhupendra Oliveira MD Status: REG ER Study: Chest PA and Lateral Date of Exam: 08/13/18 Exam# [id number] Ordering Dr: Eleazar Brooks MD STUDY: X-RAY CHEST REASON FOR EXAM: Female, 63 years old. Shortness of breath and cough. TECHNIQUE: PA and lateral views of the chest. COMPARISON: 05 August 2018 FINDINGS: Prominent interstitial markings are seen bilaterally. COPD related changes are present. There is no demonstrated pleural abnormality. There is moderate cardiac enlargement. Normal mediastinum and tracie. There is prominence of the pulmonary hilar arteries and peripheral pulmonary arteries, consistent with congestive heart failure (CHF). There is atherosclerotic calcification of the aortic arch with tortuosity. There are diffuse degenerative changes of the visualized thoracic spine. Normal visualized ribs, clavicles, and shoulders. There is no demonstrated abnormality of the visualized soft tissue structures of the upper abdomen. RAD/Chest PA and Lateral IMPRESSION: Findings consistent with prominent pulmonary vascularity with underlying COPD related changes. Cardiogenic edema is not totally excluded, clinically correlate for CHF exacerbation. Electronically Signed: Leonides Wilburn DO at 20:23 EST , Service support , CC: Bhupendra Oliveira MD; Eleazar Brooks MD Pipe Recovery Specialist: Signed URINALYSIS, ROUTINE Collected: 08/12/2018 Status: F Source: KINJAL (DIPSTICK) 8:10 AM [facility] REPOSITORY Order Comment: How was Urine Obtained? CLEAN CATCH TYPE CODE TESTS RESULT OUT OF RANGE REFERENCE UNITS LAB L400.3000 Yellow COLOR Normal Yellow LAB L400.3050 Clear Normal CLARITY Sl. Cloudy LAB L400.3200 Normal mg/dl Normal GLUCOSE, UR Normal LAB L400.3300 Negative mg/dL Normal BILIRUBIN URINE Negative LAB L400.3400 Negative mg/dl Normal KETONE UR Negative LAB L400.3465 1.002-1.030 Normal SP.GR. DIPSTX 1.010 LAB L400.3550 5.0 - 8.0 pH UR Normal 8.0 LAB L400.3600 Negative mg/dl High PROT DIPSTX 100 LAB L400.3700 Normal mg/dl Normal UROBILI Normal LAB L400.3750 Negative High NITRITE UR Positive LAB L400.3780 Negative /ul High OCCULT BLOOD-UR 150 LAB L400.3800 Negative /ul High LEUK ESTERASE 500 Performed By: #### L400.2011 #### [facility] [address] [place], [address] Observed: 08/12/2018 Status: F Source: MEARS CULTURE, URINE 8:10 AM [facility] REPOSITORY Urine Culture ORGANISM 1: Proteus mirabilis [place] Count >100,000 Proteus mirabilis: REACTION Amoxacillin/Clavulanic Acid $ <=2 S Ampicillin $ <=2 S Ampicillin/Sulbactam $ <=2 S Cefazolin $ <=4 S Cefepime $ <=1 S Ceftriaxone $ <=1 S Ciprofloxacin $ <=0.25 S Ertapenim $$$ <=0.5 S Gentamicin $ <=1 S Levofloxacin $ <=0.12 S Nitrofurantoin $ 128 R Piperacillin/Tazobactam $$ <=4 S Tobramycin $ <=1 S Trimethoprim/Sulfametho $ <=20 S (NF) indicates non-formulary drug at [facility]. Approval by Infectious Disease Specialist required before non-formulary drugs may be ordered and/or dispensed. Performed By: #### M100.0650 #### [facility] [address] [place], [address] PROGRESS Observed: 08/07/2018 Status: COMPLETED Source: RUSSELL 5:06 PM [facility] REPOSITORY HNO ID: [id number] Author: Nanda Oliveira Service: (none) Author Type: Physician Type: Progress Notes Filed: 08/07/2018 5:06 PM Note Text: Reviewed. PROGRESS Observed: 08/07/2018 Status: COMPLETED Source: RUSSELL 4:26 PM [facility] REPOSITORY HNO ID: [id number] Author: Saad Allen) Larry Service: (none) Author Type: Registered Nurse Type: Progress Notes Filed: 08/07/2018 4:29 PM Note Text: PRIMARY CARE COORDINATION QUICK NOTE Provider Action/FYI FYI Patient identified by name and date . TC from Charley for [facility], states they are concerned about patient's home situation. However, pt refuses to agree to a restraining order so there isn't anything police or APS can do. Informed there were issues with both son's living at patient's apartment before and pt ended up being evicted. PCC informed pt that she may lose her [employer] voucher if son's continue to live with her. Pt said previously that she tried to get John to leave but he wouldn't and he would bring women over to spend the night. Saad Silvestre RN PROGRESS Observed: 08/07/2018 Status: COMPLETED Source: RUSSELL 3:37 PM [facility] REPOSITORY HNO ID: [id number] Author: Saad (Nina) Larry Service: (none) Author Type: Registered Nurse Type: Progress Notes Filed: 08/07/2018 3:54 PM Note Text: TRANSITION CARE MANAGEMENT (TCM) INITIAL CONTACT Provider Action/FYI: Metformin and cardizem D/C'd by [facility] (due to Bradycardia and Hypoglycemia) Initial contact with patient post discharge, spoke to patient. Patient identified by name and . TRANSITION CARE MANAGEMENT: Date of Outreach: 08/07/2018 07/28/2018 Outreach Attempt 1: Contact Made Contact Made Date of Discharge 08/06/2018 07/26/2018 Some recent data might be hidden SUMMARY: -Pt discharged from [facility] on 08/06. -Follow up appointment on 08/14. -Medication review done: no, but TC to Jessica at [facility] to inform metformin and cardizem D/C'd at discharge from [facility], verbalized understanding, they will send someone out to remove medications from dose pack. -Admitted for: Toxic Encephalopathy (Acute) Bradycardia (Acute) CONCERNS: Informed pt PCP called in anastasiya roman to [facility] for cough. Noted moist cough while pt on phone Pt states BS this morning was 159, not low Reports bad headache. Discussed pt not taking son's tramadol for headache. Pt states she never took her son's tramadol even though pt told the squad that is what she had taken. TC to nurse, Lauren, left message asking if pt had low BS or low BP at visit today. NEW MEDICATIONS: None MEDS HELD/DISCONTINUED: metFORMIN ER (GLUCOPHAGE XR) 500 mg 2 TABLETS BY MOUTH TWICE A DAY diltiazem CD (CARDIZEM CD, CARTIA XT) 180 mg 1 CAPSULE BY MOUTH EVERY MORNING BRIEF HOSPITAL COURSE: Patient is a 63 year old F presents with confusion. EMS arrived and patient was found to have a bottle of tramadol. Patient did endorse taking 2 pills of tramadol. Patient did receive couple rounds of Narcan with minimal improvement. Patient did start coming to but was dozing off very easily. Patient was brought in and monitored. Drug Screen came back Negative. Patient also did have some bradycardia. Patient's Cartia was discontinued. Patient was on Cartia as well as metoprolol. The patient will continue with her metoprolol. Patient advised to avoid narcotics though now she is saying that she did not Phenergan and ibuprofen. It were to avoid the Phenergan but the story seems to be evolving at this time. Patient does have history of hypoglycemia which she did not have any episodes here but recommend patient stop her metformin and continue with her insulin. The combination of the oral plus insulin may be leading to have hyperglycemic episodes which she has had in the past. Saad Silvestre RN August 07, 2018 3:46 PM [facility] Observed: 08/07/2018 Status: COMPLETED Source: RUSSELL 12:00 AM [facility] REPOSITORY Patient Outreach (FAMPWS) TAMIA PANDA ([id number]) 1955 F Date Time Provider Department 08/07/18 SAAD SILVESTRE (NINA) KENDRICKWS During your visit today, we recorded the following information about you: Saad Silvestre RN 08/07/2018 3:54 PM Signed TRANSITION CARE MANAGEMENT (TCM) INITIAL CONTACT Provider Action/FYI: Metformin and cardizem D/C'd by [facility] (due to Bradycardia and Hypoglycemia) Initial contact with patient post discharge, spoke to patient. Patient identified by name and . TRANSITION CARE MANAGEMENT: Date of Outreach: 08/07/2018 07/28/2018 Outreach Attempt 1: Contact Made Contact Made Date of Discharge 08/06/2018 07/26/2018 Some recent data might be hidden SUMMARY: -Pt discharged from [facility] on 08/06. -Follow up appointment on 08/14. -Medication review done: no, but TC to Jessica at [facility] to inform metformin and cardizem D/C'd at discharge from [facility], verbalized understanding, they will send someone out to remove medications from dose pack. -Admitted for: Toxic Encephalopathy (Acute) Bradycardia (Acute) CONCERNS: Informed pt PCP called in anastasiya roman to [facility] for cough. Noted moist cough while pt on phone Pt states BS this morning was 159, not low Reports bad headache. Discussed pt not taking son's tramadol for headache. Pt states she never took her son's tramadol even though pt told the squad that is what she had taken. TC to nurse, Lauren, left message asking if pt had low BS or low BP at visit today. NEW MEDICATIONS: None MEDS HELD/DISCONTINUED: metFORMIN ER (GLUCOPHAGE XR) 500 mg 2 TABLETS BY MOUTH TWICE A DAY diltiazem CD (CARDIZEM CD, CARTIA XT) 180 mg 1 CAPSULE BY MOUTH EVERY MORNING BRIEF HOSPITAL COURSE: Patient is a 63 year old F presents with confusion. EMS arrived and patient was found to have a bottle of tramadol. Patient did endorse taking 2 pills of tramadol. Patient did receive couple rounds of Narcan with minimal improvement. Patient did start coming to but was dozing off very easily. Patient was brought in and monitored. Drug Screen came back Negative. Patient also did have some bradycardia. Patient's Cartia was discontinued. Patient was on Cartia as well as metoprolol. The patient will continue with her metoprolol. Patient advised to avoid narcotics though now she is saying that she did not Phenergan and ibuprofen. It were to avoid the Phenergan but the story seems to be evolving at this time. Patient does have history of hypoglycemia which she did not have any episodes here but recommend patient stop her metformin and continue with her insulin. The combination of the oral plus insulin may be leading to have hyperglycemic episodes which she has had in the past. Saad Silvestre RN August 07, 2018 3:46 PM Allergies As of Date: 08/07/2018 Noted Allergy Reaction ADHESIVE TAPE (ROSINS) 04/04/2015 5 - Intolerance Comments: Surgical tape leaves rash Irritates skin badly and blisters along with medical tape CATS 04/10/2016 14 - Other: See Comments Comments: Congested and itchy, difficulty breathing DOGS 04/10/2016 14 - Other: See Comments Comments: Congestion, sneezing, and difficulty breathing ORPHENADRINE 04/10/2016 16 - Unknown CAPSAICIN 03/02/2018 9 - Itching CIPROFLOXACIN 12/11/2011 14 - Other: See Comments Comments: Red, hot, itchy rash KEFLEX (CEPHALEXIN) 07/10/2016 4 - Hives Comments: Negative skin testing and successful completion of an oral amoxicillin challenge was completed on 03/02/2018. Cephalexin shares an almost identical R1 side chain to amoxicillin; therefore, it is unlikely that she would be at elevated risk for developing an IgE-mediated reaction (allergic/anaphylactic). If she should need this medication in the future, I would recommend giving the first dose in a supervised medical setting. If no reaction after 30 minutes, proceed with regular dosing. NIACIN 04/04/2015 16 - Unknown Comments: Pt states its niacin its niaspan REGLAN (METOCLOPRAMIDE HCL) 03/04/2017 14 - Other: See Comments Comments: Unable to sleep XANTHINES 10/18/2004 16 - Unknown ZOFRAN (ONDANSETRON HCL (PF)) 02/03/2018 9 - Itching Date Reviewed: 08/03/2018 Reviewed by: Leilani Davis) NELI Simmons - Fully Assessed Reason for Visit: Transition Of Care [4074] Prescriptions as of 08/07/2018 Sig: BENZONATATE 100 MG CAPSULE Take 1 capsule by mouth three* ELIQUIS 2.5 MG TABLET TAKE 1 TABLET BY MOUTH TWICE * ASPIRIN 81 MG TABLET,DELAYED * TAKE 1 TABLET BY MOUTH EVERY * CLAUDIA-KYLE 8.6 MG TABLET TAKE 1 TABLET BY MOUTH TWICE * STOOL SOFTENER 100 MG CAPSULE TAKE 1 CAPSULE BY MOUTH DAILY PROMETHAZINE 25 MG TABLET Take 1 tablet by mouth every * INSULIN GLARGINE (U-100) 100 * Inject 36 units subcutaneousl* BUSPIRONE 5 MG TABLET Take 1.5 tablets by mouth twi* ALBUTEROL SULFATE HFA 90 MCG/* Inhale 2 Puffs as instructed * LYRICA 100 MG CAPSULE TAKE 1 CAPSULE BY MOUTH THREE* BIPAP Bilevel PAP 16/12 cmH2O with * OMEPRAZOLE 20 MG CAPSULE,MARIA EUGENIA* Take 1 capsule by mouth once * INSULIN LISPRO (U-200) 200 UN* Inject subcutaneously 14 unit* METOPROLOL TARTRATE 100 MG TA* TAKE 1 TABLET BY MOUTH TWICE * DULOXETINE 60 MG CAPSULE,MARIA EUGENIA* TAKE 1 CAPSULE BY MOUTH DAILY METFORMIN ER 500 MG TABLET,EX* TAKE 2 TABLETS BY MOUTH TWICE* PSEUDOEPHEDRINE-GUAIFENESIN E* Take 1 tablet by mouth twice * ESTRADIOL 0.01% (0.1 MG/GRAM)* Apply pea-sized amount to per* COMPOUNDED PRESCRIPTION Please fit for BiPAP mask. ONETOUCH ULTRA BLUE TEST STRIP USE DIRECTED TO CHECK BLOO* ONETOUCH DELICA LANCETS 30 GA* USE TO CHECK BLOOD SUGAR 4-5 * COMPOUNDED PRESCRIPTION OCD Titration for portable ox* CAPSAICIN 0.075 % TOPICAL CRE* Apply 1 application to affect* ULTICARE PEN NEEDLE 31 GAUGE * USE DIRECTED. TO INJECT IN* VITAMIN C 500 MG TABLET TAKE 1 TABLET BY MOUTH DAILY FERROUS GLUCONATE 324 MG (38 * TAKE 1 TABLET BY MOUTH DAILY * ISOSORBIDE MONONITRATE ER 60 * Take 1.5 tablets by mouth onc* ATORVASTATIN 40 MG TABLET TAKE 1 TABLET BY MOUTH DAILY DILTIAZEM SR 180 MG 24 HR CAP TAKE 1 CAPSULE BY MOUTH EVERY* LEVOTHYROXINE 100 MCG TABLET TAKE 1 TABLET BY MOUTH EVERY * NITROGLYCERIN 0.4 MG SUBLINGU* DISSOLVE 1 TAB UNDER THE TONG* GLUCOSE 4 GRAM CHEWABLE TABLET Take 4 tablets by mouth as ne* OXYGEN (HOME THERAPY) Inhale 3 L/min as instructed * FLUTICASONE 50 MCG/ACTUATION * Use 2 Sprays in each nostril * FUROSEMIDE 40 MG TABLET Take 1 tablet by mouth twice * COMPOUNDED PRESCRIPTION Evaluation for diabetic shoes* INCONTINENCE PAD, LINER, DISP* 1 Device as needed (urinary i* COMPOUNDED PRESCRIPTION BLOOD PRESSURE CUFF FOR HOME * BLOOD-GLUCOSE METER KIT UAD to test blood sugar ALCOHOL SWABS UAD to clean skin before test* Medication notes this encounter METFORMIN ER 500 MG TABLET,EXTENDED RELEASE 24 HR >> Saad Silvestre RN 08/07/2018 3:51 PM >> SAAD SILVESTRE FriAug 07, 2018 3:51 PM Discontinued at [facility] due to Hypoglycemia DILTIAZEM SR 180 MG 24 HR CAP >> Saad Silvestre RN 08/07/2018 3:47 PM >> SAAD SILVESTRE FriAug 07, 2018 3:47 PM Discontinued at [facility] due to hypoglycemia >> Saad Silvestre RN 08/07/2018 3:51 PM >> SAAD SILVESTRE FriAug 07, 2018 3:51 PM D/C'd due to Bradycardia Problem List As Of Date 08/07/2018 Noted Resolved SUBJECTIVE TINNITUS [H93.19] INVALID FOR* PARESH treated with BiPAP [G47.33] INVALID FOR* Hyperlipidemia [E78.5] INVALID FOR* Coronary disease [I25.10] INVALID FOR* Diabetes mellitus, type II ([facility]) [E11.9] INVALID FOR* Morbid obesity ([facility]) [E66.01] Hypothyroidism [E03.9] Anxiety [F41.9] Sleep apnea [G47.30] 02/14/2017 Essential hypertension [I10] Coronary artery disease of [place] artery of [place]* AF (paroxysmal atrial fibrillation) ([facility]) [I48.* COPD (chronic obstructive pulmonary disease) (H* GERD without esophagitis [K21.9] Dysphagia [R13.10] Constipation [K59.00] DM type 2 (diabetes mellitus, type 2) ([facility]) [E1* 02/14/2017 Shortness of breath [R06.02] 02/14/2017 Arthritis [M19.90] More... CHF (congestive heart failure) ([facility]) [I50.9] BPPV (benign paroxysmal positional vertigo) [H8*INVALID FOR* RLS (restless legs syndrome) [G25.81] INVALID FOR* Iron deficiency concern: RE RLS [E61.1] INVALID FOR* Tubular adenoma [D36.9] INVALID FOR* Incontinence [R32] More... Gastroparesis [K31.84] INVALID FOR* Pre-op testing [Z01.818] INVALID FOR* More... Hypercapnia [R06.89] INVALID FOR* S/P coronary artery stent placement [Z95.5] INVALID FOR* Stage 3 chronic kidney disease [N18.3] INVALID FOR* Depression [F32.9] INVALID FOR* Obesity, Class II, BMI 35-39.9 [E66.9] INVALID FOR* Encounter Status:Closed by SAAD SILVESTRE on 08/11/18 DISCHARGE SUMMARY Observed: 08/06/2018 Status: F Source: KINJAL 12:05 PM [facility] REPOSITORY [facility] Medical Records Department [address] [place] [address] Discharge Summary 08/06/18 1159 MR#: [id number] Acct: [id number] Name: TAMIA PANDA Rep #: [id number] : 1955 63 From: Zuhair Cohn DO PCP: Bhupendra Oliveira MD Status: ADM IN Y Location: [place] [address] Discharge Date and Diagnosis - Problem List Patient Problems: Active and Suspected Problems Toxic encephalopathy (Acute) Bradycardia (Acute) Date of Admission: 08/05/18 Date of Discharge: 08/06/18 - Primary Discharge Diagnosis Active and Suspected Problems Bradycardia (Acute) 1. Change in mental status/toxic encephalopathy * resolved * Feel that this is likely related the patient's tramadol that she has been taking including Lyrica, Cymbalta. * No additional narcotics and will hold off on the patient's Lyrica as well as Cymbalta * Advised patient that she will not be receiving any narcotics but patient groggily states that she will get up and leave but then quickly dozes off. * Though patient now denies Tramadol use, despite endorsing she took 2 little pills yesterday and found with bottle at home. 2. Chronic pain * Patient is a high risk for given that she has really admitted to taking someone else's, her sons, tramadol and also with her encephalopathy. She is a high likelihood for overdose * Pain control will be maintained through utilized non-narcotic medications. 3. COPD * No acute process on x-ray * Continue with her home medications * No acute exacerbation at this time 4. Diabetes mellitus type 2 * Patient is not encephalopathic due to hypoglycemia but has had hypoglycemic episodes. * Continue with her home dosing of insulin but given hypoglycemic episode that she has had in the past, discontinue the Metformin 5. Bradycardia * Improved * Patient is on combination of metoprolol and Cartia XT. * Will discontinue the Cartia and monitor 6. Chronic atrial fibrillation * Continue with metoprolol and Eliquis - Secondary Discharge Diagnosis Chronic Problems Paroxysmal A-fib (Chronic) Diabetes mellitus type 2 in obese (Chronic) Coronary arteriosclerosis (Chronic) cath 05/2015 mild-moderate disease medical therapy recommended Hypothyroidism (Chronic) Hyperlipemia (Chronic) GERD (gastroesophageal reflux disease) (Chronic) Hypertension (Chronic) COPD (chronic obstructive pulmonary disease) (Chronic) Chronic respiratory insufficiency (Chronic) On home oxygen at night S/P PTCA (percutaneous transluminal coronary angioplasty) (Chronic) PARESH (obstructive sleep apnea) (Chronic) Hospital Course and Treatment Imaging Results: Clinical Impression(s) from Imaging Studies Brain CT 08/05/18 13:17 IMPRESSION: Chronic involutional changes of the brain. Stable examination. Electronically Signed: Bentley Montejo MD at 15:12 EST Tel [phone], Service support , Chest X-Ray 08/05/18 13:17 IMPRESSION: Findings suggest a mild degree of CHF with a possible scarring in the right lower lobe. Electronically Signed: Bentley Montejo MD at 13:55 EST Tel [phone], Service support , Operations: None Procedures: None Summary of Care Provided: The patient is a 63 year old F presents with confusion. EMS arrived and patient was found to have a bottle of tramadol. Patient did endorse taking 2 pills of tramadol. Patient did receive couple rounds of Narcan with minimal improvement. Patient but she did start coming to but was dozing off very easily. Patient was brought in and monitored. Patient also did have some bradycardia. Patient's Cartee was discontinued. Patient was on Cartia as well as metoprolol. The patient will continue with her metoprolol. Patient advised to avoid narcotics though now she is staying this that she did not Phenergan and ibuprofen. It were to avoid the Phenergan but the story seems to be evolving at this time. Patient does have history of hypoglycemia which she did not have any episodes here but recommend patient stop her metformin and continue with her insulin. The combination of the oral plus insulin may be leading to have hyperglycemic episodes which she has had in the past. [] Patient Problems: Active and Suspected Problems Toxic encephalopathy (Acute) Bradycardia (Acute) - Physical Exam General: Alert HEENT: Atraumatic, Normocephalic Oral: Moist Mucosa, No Gingival or Mucosal Lesions/ Ulcerations Lungs: Clear to auscultation, Normal air movement, Wheezes - upper respiratory. Cardiovascular: Regular rate, Regular Rhythm, Normal S1, Normal S2, No murmurs Abdomen: Bowel Sounds Present, Soft, Non Tender, Non-Distended, No Hepato-splenomegaly Extremities: No edema, No Calf Tenderness Psych/Mental Status: Normal Affect, Appropriate Vital Signs Temp Pulse Resp BP Pulse Ox 36.6 C 74 18 150/105 H 96 08/06/18 09:00 08/06/18 09:00 08/06/18 09:00 08/06/18 09:00 08/06/18 09:00 Oxygen Flow Rate (L/min) 3 Oxygen Delivery Method Nasal Cannula Weight: 95.8 kg Body Mass Index (BMI) 38.6 Finger Stick Blood Glucose 68 Intake and Output for Last 24 Hours Intake Total 440 / 440 120 / 120 Output Total 950 / 950 525 / 525 Balance -510 / -510 -405 / -405 Laboratory Tests Past 24 Hrs WBC 10.3 RBC 4.20 Hgb 12.1 Hct 39.2 MCV 93.3 MCH 28.8 MCHC 30.9 L RDW 16.1 H WBC RBC Hgb Hct MCV MCH MCHC RDW RDW Differential Plt Count POC Glucose POC Glucose 248 H 113 H 127 H POC Glucose 66 L 87 68 L POC Glucose 104 58 L Discharge Diet: Low fat/ Low Cholesterol, 1800 Calorie Control Diet Discharge Activity: Return to Normal Activity Call your doctor if your incision/area has: Continuous Slow Oozing Call your doctor if you observe: Fever of 101 or Higher, Shortness of breath Home Medications: Medications to take at Discharge Albuterol Inhaler [Ventolin Hfa] 2 puff INHALATION Q4H PRN PRN 02/03/18 Atorvastatin Calcium [Lipitor] 40 mg PO DAILY 02/03/18 Docusate Sodium [Stool Softener] 100 mg PO DAILY 02/03/18 Duloxetine Hcl [Cymbalta] 60 mg PO DAILY 02/03/18 Insulin Lispro [Humalog KwikPen] 22 unit SQ LUNCH 02/03/18 Insulin Lispro [Humalog KwikPen] 24 unit SQ DINNER 02/03/18 Insulin Lispro [Humalog] 16 unit SQ BREAKFAST 02/03/18 Isosorbide Mononitrate [Imdur] 90 mg PO DAILY 02/03/18 Levothyroxine [Synthroid] 100 mcg PO DAILY 02/03/18 Apixaban [Eliquis] 2.5 mg PO BID 05/17/18 Ascorbic Acid [Vitamin C] 500 mg PO DAILY@0800 05/17/18 Metoprolol Tartrate [Lopressor] 100 mg PO BID 05/17/18 Omeprazole [Prilosec] 20 mg PO DAILY 05/17/18 Pregabalin [Lyrica] 100 mg PO TID 05/17/18 Sennosides [Claudia-Kyle] 8.6 mg PO BID 05/17/18 Aspirin [Aspirin EC] 81 mg PO DAILY 07/22/18 Ferrous Gluconate 324 mg PO DAILY 07/22/18 Fluticasone Propionate 2 sprays NASAL DAILY 07/22/18 Insulin Glargine [Lantus SoloStar Pen] 36 units SC BID 07/22/18 busPIRone [Buspar] 7.5 mg PO BID 07/25/18 Albuterol IH (ProAir) [Proair Hfa] 2 puff INHALATION Q4H PRN PRN 08/05/18 Buspirone HCl 7.5 mg PO BID 08/05/18 Acetaminophen [Tylenol] 1,000 mg PO Q8 PRN tablet 08/06/18 Primary Care Physician: Bhupendra Oliveira MD [Primary Care Provider] - Within 2 Weeks Disposition: Home with Home Health Minutes spent on discharge:: 32 Patient Condition:: Fair Medical Necessity - Tobacco Use Smoking Status: Former smoker Tobacco Use: Cigarettes Meaningful Use Info Meaningful Use Diagnoses (Choose all that apply): None applicable Code Visit OBSV E AND M: 30989 Observation care discharge 08/06/18 1205 <Electronically signed by Zuhair Cohn DO> Date Zuhair Madsen Signature (if applicable): Date CC: Bhupendra Oliveira MD; Zuhair Cohn DO Signed DISCHARGE INSTRUCTION Observed: 08/06/2018 Status: F Source: KINJAL 11:59 AM [facility] REPOSITORY [facility] Medical Records Department [address] [place] [address] Instructions for Home/Discharge Instructions 08/06/18 1158 MR#: [id number] Acct: [id number] Name: TAMIA PANDA Rep #: [id number] : 1955 63 From: Zuhair Cohn DO PCP: Bhupendra Oliveira MD Status: ADM IN You will use the following diet at home:: Calorie/Carbohydrate Controlled (specify 1200, 1400, etc) - 1800 calories/day, Cardiac Your food should be the consistency of: Regular Your liquids should be the consistency of: Regular/Thin Discharge Activity: Return to Normal Activity Call your doctor if your incision/area has: Continuous Slow Oozing Call your doctor if you observe: Fever of 101 or Higher, Shortness of breath Allergies/Adverse Reactions: Allergies ciprofloxacin [From Cipro] Allergy (Verified 07/25/18 06:11) Hives latex Allergy (Verified 07/25/18 06:11) matos me niacin [From Niaspan Extended-Release] Allergy (Verified 07/25/18 06:11) Hives ondansetron [From Zofran] Allergy (Verified 07/25/18 06:11) Unknown Xanthines Allergy (Verified 07/25/18 06:11) Unknown orphenadrine citrate [From Norgesic] Adverse Reaction (Verified 07/25/18 06:11) groggy medical tape Adverse Reaction (Uncoded 07/25/18 06:11) blisters Medications to take at Discharge Albuterol Inhaler [Ventolin Hfa] 2 puff INHALATION Q4H PRN PRN 02/03/18 Atorvastatin Calcium [Lipitor] 40 mg PO DAILY 02/03/18 Docusate Sodium [Stool Softener] 100 mg PO DAILY 02/03/18 Duloxetine Hcl [Cymbalta] 60 mg PO DAILY 02/03/18 Insulin Lispro [Humalog KwikPen] 22 unit SQ LUNCH 02/03/18 Insulin Lispro [Humalog KwikPen] 24 unit SQ DINNER 02/03/18 Insulin Lispro [Humalog] 16 unit SQ BREAKFAST 02/03/18 Isosorbide Mononitrate [Imdur] 90 mg PO DAILY 02/03/18 Levothyroxine [Synthroid] 100 mcg PO DAILY 02/03/18 Apixaban [Eliquis] 2.5 mg PO BID 05/17/18 Ascorbic Acid [Vitamin C] 500 mg PO DAILY@0800 05/17/18 Metoprolol Tartrate [Lopressor] 100 mg PO BID 05/17/18 Omeprazole [Prilosec] 20 mg PO DAILY 05/17/18 Pregabalin [Lyrica] 100 mg PO TID 05/17/18 Sennosides [Claudia-Kyle] 8.6 mg PO BID 05/17/18 Aspirin [Aspirin EC] 81 mg PO DAILY 07/22/18 Ferrous Gluconate 324 mg PO DAILY 07/22/18 Fluticasone Propionate 2 sprays NASAL DAILY 07/22/18 Insulin Glargine [Lantus SoloStar Pen] 36 units SC BID 07/22/18 busPIRone [Buspar] 7.5 mg PO BID 07/25/18 Albuterol IH (ProAir) [Proair Hfa] 2 puff INHALATION Q4H PRN PRN 08/05/18 Buspirone HCl 7.5 mg PO BID 08/05/18 Acetaminophen [Tylenol] 1,000 mg PO Q8 PRN tablet 08/06/18 Primary Care Physician: Bhupendra Oliveira MD [Primary Care Provider] - Within 2 Weeks Test Results: Test results from this visit will be discussed in further detail at your follow-up appointment, if applicable. Proposed Discharge Date: 08/06/18 08/06/18 1159 <Electronically signed by Zuhair Cohn DO> Date Zuhair Cohn DO CC: Bhupendra Oliveira MD BEDSIDE GLUCOSE Collected: 08/06/2018 Status: F Source: KINJAL 11:40 AM [facility] REPOSITORY TYPE CODE TESTS RESULT OUT OF REFERENCE UNITS RANGE LAB L501.080 70-110 mg/dL High BEDSIDE GLU 248 Result Comment: MANAGEMENT OF PATIENT CARE PER NURSING PROTOCOL Performed By: #### L501.080 #### [facility] Point of Care [address] [place] [address] BEDSIDE GLUCOSE Collected: 08/06/2018 Status: F Source: MEARS 3:46 AM [facility] REPOSITORY TYPE CODE TESTS RESULT OUT OF REFERENCE UNITS RANGE LAB L501.080 70-110 mg/dL High BEDSIDE GLU 113 Result Comment: MANAGEMENT OF PATIENT CARE PER NURSING PROTOCOL Performed By: #### L501.080 #### [facility] Point of Care [address] [place], [place] [address] BEDSIDE GLUCOSE Collected: 08/05/2018 Status: F Source: MEARS 9:33 PM [facility] REPOSITORY TYPE CODE TESTS RESULT OUT OF REFERENCE UNITS RANGE LAB L501.080 70-110 mg/dL High BEDSIDE GLU 127 Result Comment: MANAGEMENT OF PATIENT CARE PER NURSING PROTOCOL Performed By: #### L501.080 #### [facility] Point of Care [address] [place] [address] BEDSIDE GLUCOSE Collected: 08/05/2018 Status: F Source: MEARS 9:14 PM [facility] REPOSITORY TYPE CODE TESTS RESULT OUT OF REFERENCE UNITS RANGE LAB L501.080 70-110 mg/dL Low BEDSIDE GLU 66 Result Comment: MANAGEMENT OF PATIENT CARE PER NURSING PROTOCOL Performed By: #### L501.080 #### [facility] Point of Care [address] [place] [address] EMERGENCY DEPARTMENT Observed: 08/05/2018 Status: F Source: MEARS SUMMARY 5:53 PM [facility] REPOSITORY [facility] Medical Records Department [facility] [place] [address] Emergency Department Summary 08/05/18 1319 MR#: [id number] Acct: [id number] Name: TAMIA PANDA Jennifer Rep #: [id number] : 1955 63 From: Lynne Mccann MD PCP: Bhupendra Oliveira MD Status: ADM IN - ER Visit Summary Date of Service: 08/05/18 Chief Complaint: Altered mental status History of Present Illness: The patient is a 63 F with history of COPD, obstructive sleep apnea, diabetes, hypertension, paroxysmal A. fib, and recent admission for respiratory failure and COPD exacerbation who presents for altered mental status today. Patient was noted to be lethargic at home. EMS was called and they asked patient if she had taken any medications. She handed them her son's tramadol bottle. History from the patient is limited secondary to her altered mental status. She denies any pain, shortness of breath or other complaints. Provided further history that patient has been taking her son's tramadol for headache. Pill count in the bottle does not show a significant number of missing. Physical Examination: Vital signs: afebrile, hemodynamically stable, no hypoxia on room air General: well nourished, well developed, somnolent but will arouse and answer questions Skin: warm, dry, no rash, no pallor HEENT: normocephalic and atraumatic; PERRL at 3 mm, EOMI, moist mucous membranes Cardiovascular: regular rate and rhythm without murmurs, no peripheral edema, 2+ pulses all distal extremities Respiratory: No increased work of breathing, lungs show mild rales and wheezing in the bases, exam limited secondary to body habitus Abdominal: Abdomen is soft, nontender with normoactive bowel sounds, no guarding or rebound, no masses MSK: Generalized weakness, no deformities Neuro: Somnolent. No facial droop, no focal deficits noted but exam limited secondary to patient's somnolence. Will rouse and answer questions then falls back asleep. Test Results: Abnormal Lab Results WBC 10.3 RBC 4.20 Hgb 12.1 Hct 39.2 MCV 93.3 MCH 28.8 MCHC 30.9 L RDW 16.1 H WBC RBC Hgb Hct MCV MCH MCHC RDW RDW Differential WBC RBC Hgb Hct MCV MCH MCHC RDW RDW Differential WBC RBC Hgb Hct MCV MCH MCHC RDW Clinical Impression(s) from Imaging Studies Brain CT 08/05/18 13:17 IMPRESSION: Chronic involutional changes of the brain. Stable examination. Electronically Signed: Bentley Montejo MD at 15:12 EST Tel [phone], Service support , Chest X-Ray 08/05/18 13:17 IMPRESSION: Findings suggest a mild degree of CHF with a possible scarring in the right lower lobe. Electronically Signed: Bentley Montejo MD at 13:55 EST Tel [phone], Service support , Medications Given Discontinued Medications Albuterol Sulfate (Ventolin Aerosols) 2.5 mg INHALATION X1 ONE Stop: 08/05/18 15:13 Last Admin: 08/05/18 15:33 Dose: 2.5 mg Albuterol/Ipratropium (Duoneb) 3 ml INHALATION X1 ONE Stop: 08/05/18 15:13 Last Admin: 08/05/18 15:33 Dose: 3 ml Dextrose (D50w Syringe) 12.5 gm IV X1 ONE Stop: 08/05/18 13:51 Last Admin: 08/05/18 13:51 Dose: 12.5 gm Dextrose (D50w Syringe) 12.5 gm IV X1 ONE Stop: 08/05/18 15:23 Last Admin: 08/05/18 15:26 Dose: 12.5 gm Sodium Chloride () 500 mls @ 1,000 mls/hr IV .Q30M SHADY Stop: 08/05/18 13:59 Last Admin: 08/05/18 13:39 Dose: 1,000 mls/hr Emergency Department Course and Treatment: Patient presents altered mental status of unknown origin, with possible tramadol use which is not prescribed. Blood sugar was checked and patient was hypoglycemic at 58. She was given D50. Labs showed no significant abnormalities. Lactate normal at 1.7. Troponin negative. U tox negative. Alcohol negative. EKG showed atrial fibrillation at a rate of 61. Chest x-ray showed hypoventilation without any obvious infiltrate. ABG performed showing a respiratory acidosis with hypercarbia of 53. No hypoxia. Patient was given a trial dose of Narcan without any improvement in her level of consciousness. She did have brief episodes of significant bradycardia in the 30s that returned back to A. fib in the 60s. Patient received gentle hydration due to initial hypotension. Blood pressure improved, and patient became more alert, answering more questions and saying she did not want to be in the hospital. However she would fall back asleep but was easily aroused. That she was started on noninvasive ventilation for concern for mild CHF and hypercarbia. She had a return of hypoglycemia and was treated again with D50. She was discussed with Dr. Fabian, who is familiar with this patient and the cycle of altered mental status, hypoglycemia and respiratory failure. Patient will be admitted to the PCU for further management. Treatment Plan: [] Disposition: [] Impression: Altered mental status, hypoglycemia, hypercarbic respiratory failure, noninvasive ventilation This note was generated with Cureeo dictation software. It may contain incorrect words, spelling, and punctuation that were not noted in review of the chart prior to signing ED Disposition - Plan for ED Patient: Disposition: Acute Care Hospital [facility] Chief Complaint: Alt LOC What to do if you have Problems For any increased pain, shortness of breath, bleeding, nausea or vomiting, chest pain, or any unexpected problems, contact your Primary Care Provider. Call [facility] ([phone]) or report to the closest Emergency Room. Call 911 if necessary. 08/05/18 4152 <Electronically signed by Lynne Mccann MD> Date Lynne Mccann MD Cosigner Signature (If Indicated): Date CC: Bhupendra Oliveira MD BEDSIDE GLUCOSE Collected: 08/05/2018 Status: F Source: MEARS 5:25 PM [facility] REPOSITORY TYPE CODE TESTS RESULT OUT OF RANGE REFERENCE UNITS LAB L501.080 70-110 mg/dL Normal BEDSIDE GLU 87 Result Comment: MANAGEMENT OF PATIENT CARE PER NURSING PROTOCOL Performed By: #### L501.080 #### [facility] Point of Care [address] [place] [address] HISTORY AND PHYSICAL Observed: 08/05/2018 Status: F Source: KINJAL EXAM 3:58 PM [facility] REPOSITORY [facility] Medical Records Department [address] [place] [address] History and Physical 08/05/18 1548 MR#: [id number] Acct: [id number] Name: TAMIA PANDA Rep #: [id number] : 1955 63 From: Zuhair Cohn DO PCP: Bhupendra Oliveira MD Status: ADM IN Y Location: [place] [id number] Problem List (1) Mental status alteration Status: Acute Qualifiers: Altered mental status type: somnolence History of Present Illness Date of Admission: 08/05/18 Chief Complaint: somnolent The patient is a 63 year old F patient presents with change in mental status. Patient was noted to be lethargic at home. EMS was called and when they arrived asked patient if she had taken any medications. She had handed them her son's tramadol bottle. Patient received a dose of Narcan Narcan with minimal no improvement. Patient eventually has come to somewhat but still groggy and does off during conversation. Patient states that she only took too little tramadol's. Patient readily admits to taking her son's tramadol is very concerned about her back pain. Other history is essentially unobtainable as patient is groggy and falls asleep during the encounter several times. [] Past Medical History Past Medical History (Chronic Problems): Chronic Problems Paroxysmal A-fib (Chronic) Diabetes mellitus type 2 in obese (Chronic) Coronary arteriosclerosis (Chronic) cath 05/2015 mild-moderate disease medical therapy recommended Hypothyroidism (Chronic) Hyperlipemia (Chronic) GERD (gastroesophageal reflux disease) (Chronic) Hypertension (Chronic) COPD (chronic obstructive pulmonary disease) (Chronic) Chronic respiratory insufficiency (Chronic) On home oxygen at night S/P PTCA (percutaneous transluminal coronary angioplasty) (Chronic) PARESH (obstructive sleep apnea) (Chronic) Allergies ciprofloxacin [From Cipro] Allergy (Verified 07/25/18 06:11) Hives latex Allergy (Verified 07/25/18 06:11) matos me niacin [From Niaspan Extended-Release] Allergy (Verified 07/25/18 06:11) Hives ondansetron [From Zofran] Allergy (Verified 07/25/18 06:11) Unknown Xanthines Allergy (Verified 07/25/18 06:11) Unknown orphenadrine citrate [From Norgesic] Adverse Reaction (Verified 07/25/18 06:11) groggy medical tape Adverse Reaction (Uncoded 07/25/18 06:11) blisters Home Medications: Ambulatory Orders Medication Instructions Recorded Albuterol Inhaler [Ventolin Hfa] 2 puff INHALATION Q4H PRN PRN 02/03/18 Surgical History: angioplasty, cholecystectomy, herniorrhaphy, hysterectomy, - - tubal ligation. Psychiatric History: No pertinent psych hx LOG CUT OFF SAWYER History: No pertinent LOG CUT OFF SAWYER history Smoking Status: Former smoker Tobacco Use: Cigarettes - *Family History Sibling History Items: COPD - in sister. Maternal History Items: No pertinent history Paternal History Items: Heart Disease, Stroke - age 62 Offspring History Items: No pertinent history - 5 children, 32 grand children and great grandchildren Review of Systems Comment: Unable to adequately obtain as the patient constantly dozes off during the encounter than stated that she has back pain. VTE Information - Inpt Only VTE Present on Admission: No VTE Pharm Prophylaxis ordered?: Yes - Physical Exam General: - - Groggy. Afebrile. No respiratory distress. Falls asleep several times during encounter. HEENT: Atraumatic, Normocephalic Oral: Moist Mucosa, No Gingival or Mucosal Lesions/ Ulcerations Neck: No Nodes, Thyroid Normal Size and Texture Lungs: Clear to auscultation, No rhonchi, No wheeze, Diminished Cardiovascular: Regular rate, Regular Rhythm, Normal S1, Normal S2, No murmurs Abdomen: Bowel Sounds Present, Soft, Non Tender, Non-Distended, No Hepato-splenomegaly Extremities: No edema, No Calf Tenderness Skin: No rashes, No breakdown Musculoskeletal: No Tenderness to Palpation of Joints or Extremities, No Muscle Wasting Neurological: Neuro grossly intact, Muscle tone normal, - - Somnolent. Psych/Mental Status: Agitated, Flat Affect Vital Signs Temp Pulse Resp BP Pulse Ox 36.9 C 42 L 16 100/52 L 97 08/05/18 12:53 08/05/18 14:58 08/05/18 14:58 08/05/18 14:58 08/05/18 14:58 Oxygen Flow Rate (L/min) 3 Oxygen Delivery Method Nasal Cannula Weight: 101.2 kg Body Mass Index (BMI) 40.8 Finger Stick Blood Glucose 68 Laboratory Tests Past 24 Hrs WBC 10.3 RBC 4.20 Hgb 12.1 Hct 39.2 MCV 93.3 MCH 28.8 MCHC 30.9 L WBC RBC Hgb Hct MCV MCH MCHC RDW RDW Differential Plt Count MPV Immature Gran % (Auto) POC Glucose POC Glucose 68 L 104 58 L Clinical Impression(s) from Imaging Studies Brain CT 08/05/18 13:17 IMPRESSION: Chronic involutional changes of the brain. Stable examination. Electronically Signed: Bentley Montejo MD at 15:12 EST Tel [phone], Service support , Chest X-Ray 08/05/18 13:17 IMPRESSION: Findings suggest a mild degree of CHF with a possible scarring in the right lower lobe. Electronically Signed: Bentley Montejo MD at 13:55 EST Tel [phone], Service support , Assessment/Plan All Active Problems Mental status alteration (Acute) Acute on chronic respiratory failure with hypoxia and hypercapnia (Acute) COPD exacerbation (Acute) Possible pneumonia (Acute) Atrial fibrillation with RVR (Acute) Hypoglycemia (Acute) Acute metabolic encephalopathy (Acute) Acute respiratory failure with hypoxia (Acute) COPD with acute exacerbation (Acute) COPD with moderate acute bronchitis (Acute) Acute hypoglycemia (Acute) Abnormal nuclear stress test (Resolved) Pneumonia (Resolved) Septic shock (Resolved) 1. Change in mental status/toxic encephalopathy * Feel that this is likely related the patient's tramadol that she has been taking including Lyrica, Cymbalta. * No additional narcotics and will hold off on the patient's Lyrica as well as Cymbalta * Advised patient that she will not be receiving any narcotics but patient groggily states that she will get up and leave but then quickly dozes off. 2. Chronic pain * Patient is a high risk for given that she has really admitted to taking someone else's, her sons, tramadol and also with her encephalopathy. She is a high likelihood for overdose * Pain control will be maintained through utilized non-narcotic medications. 3. COPD * No acute process on x-ray * Continue with her home medications * No acute exacerbation at this time 4. Diabetes mellitus type 2 * Patient is not encephalopathic due to hypoglycemia but has had hypoglycemic episodes. * Continue with her home dosing of insulin but given hypoglycemic episode that she has had in the past, discontinue the Metformin 5. Bradycardia * Patient is on combination of metoprolol and Cartia XT. * Will discontinue the Cartia and monitor 6. Chronic atrial fibrillation * Continue with metoprolol and Eliquis Code Visit OBSV E AND M: [id number] Initial observation care L3 08/05/18 1558 <Electronically signed by Zuhair Cohn DO> Date Zuhair Cohn DO Cosigner Signature: Date (if applicable) CC: Bhupendra Oliveira MD; Zuhair Cohn DO Signed BEDSIDE GLUCOSE Collected: 08/05/2018 Status: F Source: MEARS 3:20 PM [facility] REPOSITORY TYPE CODE TESTS RESULT OUT OF REFERENCE UNITS RANGE LAB L501.080 70-110 mg/dL Low BEDSIDE GLU 68 Result Comment: MANAGEMENT OF PATIENT CARE PER NURSING PROTOCOL Performed By: #### L501.080 #### [facility] Point of Care [address] [place] [address] [place] [address] BLOOD GASES BY [facility] Collected: 08/05/2018 Status: F Source: MEARS 2:33 PM [facility] REPOSITORY TYPE CODE TESTS RESULT OUT OF RANGE REFERENCE UNITS LAB L9000.9990 Normal BLD GAS TYPE ART LAB L9001.1000 Normal SITE L Radial LAB L9001.1010 Normal SALO TEST NA LAB L9001.1050 O2 Normal Delivery Dev Nasal Can LAB L9001.1055 /min Normal LPM 3.0 LAB L9001.1104 Normal Results To ED LAB L9001.1105 Normal Time Given 1426 LAB L9001.1110 7.35-7.45 Low pH - I-STAT 7.32 LAB L9001.1210 35-45 mmHg High pCO2 - ISTAT 52.9 LAB L9001.1310 75-100 mmHG High PO2 I-STAT 103 LAB L9001.2300 22-26 mmol/L High HCO3 ISTAT 27.2 LAB L9001.2400 -2 to +2 mmol/L BE Normal ISTAT 1 LAB L9001.2415 mmol/L Normal TOTAL CO2 29 ISTAT LAB L9001.2425 95-99 % Normal SO2 ISTAT 97 Performed By: #### L9000.0800 #### [facility] Point of Care [address] [place], [place] [address] URINE DRUG SCREEN Collected: 08/05/2018 Status: F Source: KINJAL (VISTA) 2:17 PM [facility] REPOSITORY Order Comment: Has pt arrived? Y TYPE CODE TESTS RESULT OUT OF RANGE REFERENCE UNITS LAB L505.0075 TO BE Normal CONFIRMED Result Comment: CONFIRMATORY TESTING FOR ALL POSITIVE URINE DRUG SCREEN RESULTS WILL ONLY BE SENT OUT UPON PHYSICIAN ORDER. VISTA Urine Drug Screen methods provide only preliminary analytical test results. A more specific alternate chemical method must be used in order to obtain a confirmed analytical result. Gas chromatography/mass spectrometery (GC/MS) is the preferred confirmatory method. Clinical consideration and professional judgement should be applied to any drug of abuse test result, particularly when preliminary positive results are used. URINE TCA TESTING MUST BE ORDERED SEPARATELY. USE TEST MNEMONIC: UTCA LAB L505.5005 VISTA UDS PH 6 Normal LAB L505.5015 <1000 ng/mL AMPHETAMINES Normal NEGATIVE LAB L505.5025 < 200 ng/mL BARBITIURATES Normal NEGATIVE LAB L505.5035 < 200 ng/mL BENZODIAZIPINE Normal NEGATIVE LAB L505.5045 < 300 ng/mL COCAINE Normal NEGATIVE LAB L505.5055 < 500 ng/mL ECSTACY Normal NEGATIVE LAB L505.5065 < 300 ng/mL METHADONE Normal NEGATIVE LAB L505.5075 < 300 ng/mL OPIATES Normal NEGATIVE LAB L505.5085 < 25 ng/mL PCP Normal NEGATIVE LAB L505.5095 < 50 ng/mL THC Normal NEGATIVE Performed By: #### L505.5000 #### [facility] [address] [place], [place], [address] URINALYSIS, COMPLETE Collected: 08/05/2018 Status: F Source: MEARS 2:17 PM [facility] REPOSITORY Order Comment: Has pt arrived? Y How was Urine Obtained? CLEAN CATCH TYPE CODE TESTS RESULT OUT OF RANGE REFERENCE UNITS LAB L400.3000 Yellow COLOR Normal Yellow LAB L400.3050 Clear Normal CLARITY Clear LAB L400.3200 Normal mg/dl Normal GLUCOSE, UR Normal LAB L400.3300 Negative mg/dL Normal BILIRUBIN URINE Negative LAB L400.3400 Negative mg/dl Normal KETONE UR Negative LAB L400.3465 1.002-1.030 Normal SP.GR. DIPSTX 1.005 LAB L400.3550 5.0 - 8.0 pH UR Normal 6.5 LAB L400.3600 Negative mg/dl PROT Normal DIPSTX Negative LAB L400.3700 Normal mg/dl Normal UROBILI Normal LAB L400.3750 Negative Normal NITRITE UR Negative LAB L400.3780 Negative /ul Normal OCCULT BLOOD-UR Negative LAB L400.3800 Negative /ul LEUK Normal ESTERASE Negative LAB L400.4050 0-5 /hpf WBC 0 Normal SEEN LAB L400.4100 0-5 /hpf 0 Normal RBC-UA SEEN LAB L400.4150 5-10 /hpf SQUAM 0 Normal EPI SEEN LAB L400.4300 None Seen /hpf 0 Normal BACTERIA SEEN LAB L400.4350 <or=2+ /hpf 0 Normal MUCUS, URINE SEEN Performed By: #### L400.0001 #### [facility] [address] [place], [place], [address] Observed: 08/05/2018 Status: F Source: MEARS CULTURE, URINE 2:17 PM [facility] REPOSITORY Has pt arrived? Y Urine Culture Culture exhibits no growth. Performed By: #### M100.0650 #### [facility] [address] [place], [address] BEDSIDE GLUCOSE Collected: 08/05/2018 Status: F Source: MEARS 2:06 PM [facility] REPOSITORY TYPE CODE TESTS RESULT OUT OF RANGE REFERENCE UNITS LAB L501.080 70-110 mg/dL Normal BEDSIDE GLU 104 Result Comment: MANAGEMENT OF PATIENT CARE PER NURSING PROTOCOL Performed By: #### L501.080 #### [facility] Point of Care [address] [facility] [place] [address] PROGRESS Observed: 08/05/2018 Status: COMPLETED Source: RUSSELL 1:58 PM [facility] [place] REPOSITORY HNO ID: [id number] Author: Saad (Nina) Larry Service: (none) Author Type: Registered Nurse Type: Progress Notes Filed: 08/07/2018 4:26 PM Note Text: TRANSITION CARE MANAGEMENT (TCM) FOLLOW-UP NOTE Provider Action/FYI FYI Verbally informed PCP about tramadol concerns Patient identified by name and date of : YES Spoke to sisterIvy and [facility] ER nurseJossy Summary: TC to Jossy ER nurse, informed of sister Ivy's response about tramadol. TC to pt's sister, Ivy, asked if pt has been taking her son's tramadol, states yes, because she has a bad headache. Informed pt shouldn't be taking other people's medication. Sister became upset and said She won't listen. I told her not to take them, only to take ibuprofen but she won't listen to me. TC to Jossy ER nurse at [facility], informed pt's son John Garza may come into ER and they may have a security issue. Jossy states they think patient has taken several tablets of her son's tramadol. When squad arrived they asked the patient what she had taken and she picked up a bottle of her son's tramadol and handed it to them. There are 4 pills missing. TC to patient's sister, Ivy, states pt was taken to ER by squad. States sonJohn may go to the Er and cause trouble. Ivy is going to ER and doesn't want son there when she goes because John has been threatening Ivy by phone. Both son's have been living at their apartment and Ivy called the police twice but the police said they won't continue coming over and babysitting. Ivy wants a restraining order but Tamia refuses to agree to one. Cleaning Supervisor plan for next outreach: Will follow up at discharge Signature Saad Silvestre RN August 05, 2018 Observed: 08/05/2018 Status: F Source: KINJAL CULTURE, BLOOD (WB) 1:53 PM [facility] REPOSITORY BC No growth in 5 days. Performed By: #### M200.1000 #### [facility] [address] [place], [address] LACTIC ACID Collected: 08/05/2018 Status: F Source: KINJAL 1:35 PM [facility] REPOSITORY Order Comment: Yes/No query for Sepsis Lactate Rule Y TYPE CODE TESTS RESULT OUT OF RANGE REFERENCE UNITS LAB L503.6005 0.4-2.0 mmol/L Normal LACTIC ACID 1.7 Performed By: #### L503.6005 #### [facility] [address] [place], [place], [address] Observed: 08/05/2018 Status: F Source: MEARS CULTURE, BLOOD (WB) 1:35 PM [facility] REPOSITORY BC No growth in 5 days. Performed By: #### M200.1000 #### [facility] [address] [place], [place], [address] BEDSIDE GLUCOSE Collected: 08/05/2018 Status: F Source: KINJAL 1:32 PM [facility] REPOSITORY TYPE CODE TESTS RESULT OUT OF REFERENCE UNITS RANGE LAB L501.080 70-110 mg/dL Low BEDSIDE GLU 58 Result Comment: MANAGEMENT OF PATIENT CARE PER NURSING PROTOCOL Performed By: #### L501.080 #### [facility] Point of Care [address] [place], [place] [id number] CHEST 1 VIEW Observed: 08/05/2018 Status: F Source: KINJAL (PORTABLE) 1:19 PM [facility] REPOSITORY [facility] Imaging Services [address] [facility] [place] [address] Chest 1 View (Portable) MR#: [id number] Acct: [id number] Name: TAMIA PANDA Jennifer Rep #: [id number] : 1955 F 63 From: Bentley Montejo MD PCP: Bhupendra Oliveira MD Status: REG ER Study: Chest 1 View (Portable) Date of Exam: 08/05/18 Exam# [id number] Ordering Dr: Lynne Mccann MD STUDY: X-RAY CHEST REASON FOR EXAM: Female, 63 years old. Shortness of breath/dyspnea. TECHNIQUE: Single AP portable view of the chest. COMPARISON: Comparison is made with prior study dated July 25, 2018. FINDINGS: EKG electrodes are seen. There is evidence of vascular congestion and mild degree of CHF. Stable increased markings in the peripheral aspect of the right lower lobe suggestive of possible scarring. There is no demonstrated pleural abnormality. There is borderline cardiomegaly. Normal mediastinum and tracie. Normal visualized pulmonary arteries. There is atherosclerotic calcification of the aortic arch with tortuosity. Normal visualized thoracic spine. Normal visualized ribs, clavicles, and shoulders. There is no demonstrated abnormality of the visualized soft tissue structures of the upper abdomen. RAD/Chest 1 View (Portable) IMPRESSION: Findings suggest a mild degree of CHF with a possible scarring in the right lower lobe. Electronically Signed: Bentley Montejo MD at 13:55 EST Tel [phone], Service support , CC: Bhupendra Oliveira MD; Lynne Mccann MD Pipe Recovery Specialist: Signed BRAIN/HEAD WITHOUT Observed: 08/05/2018 Status: F Source: MEARS CONTRAST 1:19 PM [facility] REPOSITORY [facility] Imaging Services [address] [place] [id number] Brain/Head without Contrast MR#: [id number] Acct: [id number] Name: TAMIA PANDA Jennifer Rep #: [id number] : 1955 F 63 From: Bentley Montejo MD PCP: Bhupendra Oliveira MD Status: REG ER Study: Brain/Head without Contrast Date of Exam: 08/05/18 Exam# [id number] Ordering Dr: Lynne Mccann MD STUDY: CT BRAIN WITHOUT CONTRAST REASON FOR EXAM: Female, 63 years old. Lethargy. Altered mental status. RADIATION DOSAGE (If Supplied By Facility): CTDIvol = ( 44.99 ) mGy, DLP = ( 694.87 ) mGycm TECHNIQUE: Transaxial CT imaging of the brain was performed without administration of intravenous contrast material. Individualized dose optimization techniques were used for this CT. COMPARISON: Comparison is made with prior study dated May 17, 2018. FINDINGS: Normal soft tissue structures. Normal calvarium. There is mild cerebral atrophy with widening of the extra- axial spaces and ventricular dilatation. Focal encephalomalacia in the posterior parietal-occipital lobe on the left side. Normal basal ganglia and thalami. Normal brainstem. Normal cerebellum. There is no intracranial hemorrhage. There are no findings of an acute ischemic infarction. Atherosclerotic calcification of the cavernous portions of the internal carotid arteries bilaterally. Mucosal thickening of the right maxillary sinus. CT/Brain/Head without Contrast IMPRESSION: Chronic involutional changes of the brain. Stable examination. Electronically Signed: Bentley Montejo MD at 15:12 EST Tel [phone], Service support , CC: Bhupendra Oliveira MD; Lynne Mccann MD Pipe Recovery Specialist: Signed CBC W/DIFF, AUTOMATED Collected: 08/05/2018 Status: F Source: KINJAL 1:05 PM [facility] REPOSITORY TYPE CODE TESTS RESULT OUT OF RANGE REFERENCE UNITS LAB L100.1000 4.4-11.0 K/mm3 Normal WBC 10.3 LAB L100.1200 4.2-5.4 M/mm3 Normal RBC 4.20 LAB L100.1300 12.0-15.0 g/dl Normal HGB 12.1 LAB L100.1400 37-47 % Normal HCT 39.2 LAB L100.1500 81-99 fL Normal MCV 93.3 LAB L100.1600 27.0-32.0 pg Normal MCH 28.8 LAB L100.1700 32-36 g/gl Low MCHC 30.9 LAB L100.1810 11.6-14.6 % High RDW CV 16.1 LAB L100.1820 35.1-43.9 fl High RDW SD 54.6 LAB L100.1900 150-450 K/mm3 Normal PLT 214 LAB L100.2000 6.2-12.0 fl Normal MPV 10.2 LAB L100.2100 47-70 % High NEUT% 75.8 LAB L100.2200 19-41 % Low LY% 9.1 LAB L100.2300 0-10 % High MONO% 10.4 LAB L100.2400 0-5 % Normal EO% 4.3 LAB L100.2500 0-1 % Normal BASO% 0.2 LAB L100.2550 0.0-0.9 % Normal IM GRAN % 0.200 Result Comment: IG% - Immature Granulocytes (promyelocytes, myelocytes and metamyelocytes) > 1% indicates that a LEFT SHIFT is Present. LAB L100.2620 2.0-7.7 X10 3/uL High Absolute Neut 7.8 LAB L100.2720 0.83-4.51 X10 3/ul Normal Absolute Lymph 0.94 Performed By: #### L100.0100 #### [facility] [address] [facility]. [place], [place], [id number] PROTHROMBIN TIME W/INR Collected: 08/05/2018 Status: F Source: MEARS 1:05 PM [facility] REPOSITORY TYPE CODE TESTS RESULT OUT OF RANGE REFERENCE UNITS LAB L300.4150 11.7-14.9 SECONDS Normal PROTIME 14.6 LAB L300.4200 Normal INR 1.1 Performed By: #### L300.3900, L300.4310 #### [facility] [address] [place], [place], [address] PARTIAL THROMBOPLAST Collected: 08/05/2018 Status: F Source: [facility] 1:05 PM [facility] REPOSITORY TYPE CODE TESTS RESULT OUT OF RANGE REFERENCE UNITS LAB L300.4310 24.1-36.2 Seconds Normal PTT 32.4 Performed By: #### L300.3900, L300.4310 #### [facility] [address] [place], [place], [address] COMPREHENSIVE METABOLIC Collected: 08/05/2018 Status: F Source: MEARS PROFIL 1:05 PM [facility] REPOSITORY TYPE CODE TESTS RESULT OUT OF RANGE REFERENCE UNITS LAB L501.0100 74-106 mg/dL Normal GLU 78 Result Comment: Please note revised GLUCOSE reference range effective 2017. LAB L501.1000 7-18 mg/dL Normal BUN 12 LAB L501.1100 0.55-1.02 mg/dL Normal CREAT,SERUM 0.66 Result Comment: The validity of the calculated GFR AND GFRAA in patients over 70 years has not been determined. Clinical correlation is essential. LAB L501.1110 >60 mL/min Normal EST GFR 96 Result Comment: Non- GFR Calc LAB L501.1115 >60 mL/min Normal EST GFR - AA 116 Result Comment: GFR Calc LAB L501.1255 ml/min Normal Estimated CRCL 69.00 LAB L501.1300 10-20 RATIO Normal BUN/CRE 18.2 LAB L501.1500 6.4-8. g/dL Normal 2 T PROT 6.6 LAB L501.1800 3.2-5. g/dL Low 0 ALB 3.0 LAB L501.1950 2.2-4. g/dL Normal 2 GLOB 3.6 LAB L501.2000 0.9-2. RATIO Low 4 A/G 0.8 LAB L501.2200 8.5-10 mg/dL Low .1 CA 8.1 LAB L501.4100 15-37 U/L Low AST 8 LAB L501.4305 45-117 U/L Normal ALK P 47 LAB L501.4405 13-56 U/L Normal ALT 15 LAB L501.4600 0.20-1 mg/dL Normal .00 T BILI 0.70 LAB L501.5300 136-14 mmol/L Normal 5 NA 142 LAB L501.5600 3.5-5. mmol/L Normal 1 K 3.8 LAB L501.5900 98-107 mmol/L Normal CL 106 LAB L501.6100 21.0-3 mmol/L Normal 2.0 CO2 31.0 LAB L501.6200 5-15 Normal GAP 5 Performed By: #### L500.4050, L501.4010 #### [facility] [address] [place], [place], [address] TROPONIN-I Collected: 08/05/2018 Status: F Source: KINJAL 1:05 PM [facility] REPOSITORY TYPE CODE TESTS RESULT OUT OF RANGE REFERENCE UNITS LAB L501.4010 <0.045 ng/mL Normal < 0.015 TROPONIN-I Result Comment: TROPONIN-I EXPECTED VALUES <0.045 Negative 0.045 - 0.590 Consistent with Cardiac Damage > OR = 0.600 Critical Value Not every elevated troponin is indicative of DC. These values should be used with clinical judgement in examining the patient's clinical picture for diagnosis. To establish a diagnosis of DC versus myocardial injury, there must be a demonstrated rise and/or fall in the troponin values, in addition to ischemic symptoms, EKG changes, new regional wall motion abnormality, and/or angiographical evidence. PLEASE NOTE: REFERENCE RANGES EDITED 18 Performed By: #### L500.4050, L501.4010 #### [facility] [address] [facility] [place], [address] ALCOHOL, BLOOD Collected: 08/05/2018 Status: F Source: KINJAL (MEDICAL)-SERUM 1:05 PM [facility] REPOSITORY TYPE CODE TESTS RESULT OUT OF RANGE REFERENCE UNITS LAB L501.9100 mg/dL Normal SERUM < 3.0 ETOH Result Comment: The serum:whole blood ethanol ratio is approximately 1.14 and varies slightly with hematocrit. Medical Alcohol reference interval and critical value in non-tolerant individuals; 50 - 100 Impairment 100 Intoxication 100 - 250 Severe Poisoning 250 - 400 Deep/possible fatal coma Performed By: #### L501.9100 #### [facility] [address] [place], [address] BNP,B-TYPE NATRIURETIC Collected: 08/05/2018 Status: F Source: KINJAL PEPTIDE 1:05 PM [facility] REPOSITORY TYPE CODE TESTS RESULT OUT OF RANGE REFERENCE UNITS LAB L503.6620 0-100 pg/mL High B-TYPE 158.4 STONEY PEP Performed By: #### L503.6620 #### [facility] [address] [facility] [place], [address] CNPTOUTREACH Observed: 08/05/2018 Status: COMPLETED Source: RUSSELL 12:00 AM [facility] REPOSITORY Patient Outreach (FAMPWS) MTTAMIA Tellez ([id number]) 1955 F Date Time Provider Department 08/05/18 SAAD SILVESTRE (RN) CIERA During your visit today, we recorded the following information about you: Saad Silvestre RN 08/07/2018 4:26 PM Signed TRANSITION CARE MANAGEMENT (TCM) FOLLOW-UP NOTE Provider Action/FYI FYI Verbally informed PCP about tramadol concerns Patient identified by name and date of : YES Spoke to sisterIvy and [facility] ER nurseJossy Summary: TC to Joss[facility] ER nurse, informed of sister Ivy's response about tramadol. TC to pt's sister, Ivy, asked if pt has been taking her son's tramadol, states yes, because she has a bad headache. Informed pt shouldn't be taking other people's medication. Sister became upset and said She won't listen. I told her not to take them, only to take ibuprofen but she won't listen to me. TC to Jossy, ER nurse at [facility], informed pt's son John Garza may come into ER and they may have a security issue. Jossy states they think patient has taken several tablets of her son's tramadol. When squad arrived they asked the patient what she had taken and she picked up a bottle of her son's tramadol and handed it to them. There are 4 pills missing. TC to patient's sister, Ivy, states pt was taken to ER by squad. States sonJohn may go to the Er and cause trouble. Ivy is going to ER and doesn't want son there when she goes because John has been threatening Ivy by phone. Both son's have been living at their apartment and Ivy called the police twice but the police said they won't continue coming over and babysitting. Ivy wants a restraining order but Tamia refuses to agree to one. Cleaning Supervisor plan for next outreach: Will follow up at discharge Signature Saad Silvestre RN August 05, 2018 Saad Silvestre RN 08/07/2018 4:29 PM Signed PRIMARY CARE COORDINATION QUICK NOTE Provider Action/FYI FYI Patient identified by name and date . TC from Charley for [facility], states they are concerned about patient's home situation. However, pt refuses to agree to a restraining order so there isn't anything police or APS can do. Informed there were issues with both son's living at patient's apartment before and pt ended up being evicted. PCC informed pt that she may lose her Enabled Employment Housing voucher if son's continue to live with her. Pt said previously that she tried to get John to leave but he wouldn't and he would bring women over to spend the night. NINA Dumont MD 08/07/2018 5:06 PM Signed Reviewed. Allergies As of Date: 08/05/2018 Noted Allergy Reaction ADHESIVE TAPE (ROSINS) 04/04/2015 5 - Intolerance Comments: Surgical tape leaves rash Irritates skin badly and blisters along with medical tape CATS 04/10/2016 14 - Other: See Comments Comments: Congested and itchy, difficulty breathing DOGS 04/10/2016 14 - Other: See Comments Comments: Congestion, sneezing, and difficulty breathing ORPHENADRINE 04/10/2016 16 - Unknown CAPSAICIN 03/02/2018 9 - Itching CIPROFLOXACIN 12/11/2011 14 - Other: See Comments Comments: Red, hot, itchy rash KEFLEX (CEPHALEXIN) 07/10/2016 4 - Hives Comments: Negative skin testing and successful completion of an oral amoxicillin challenge was completed on 03/02/2018. Cephalexin shares an almost identical R1 side chain to amoxicillin; therefore, it is unlikely that she would be at elevated risk for developing an IgE-mediated reaction (allergic/anaphylactic). If she should need this medication in the future, I would recommend giving the first dose in a supervised medical setting. If no reaction after 30 minutes, proceed with regular dosing. NIACIN 04/04/2015 16 - Unknown Comments: Pt states its niacin its niaspan REGLAN (METOCLOPRAMIDE HCL) 03/04/2017 14 - Other: See Comments Comments: Unable to sleep XANTHINES 10/18/2004 16 - Unknown ZOFRAN (ONDANSETRON HCL (PF)) 02/03/2018 9 - Itching Date Reviewed: 08/03/2018 Reviewed by: Leilani (Neli) NELI Simmons - Fully Assessed Reason for Visit: [facility] [5607] Prescriptions as of 08/05/2018 Sig: ELIQUIS 2.5 MG TABLET TAKE 1 TABLET BY MOUTH TWICE * ASPIRIN 81 MG TABLET,DELAYED * TAKE 1 TABLET BY MOUTH EVERY * CLAUDIA-KYLE 8.6 MG TABLET TAKE 1 TABLET BY MOUTH TWICE * STOOL SOFTENER 100 MG CAPSULE TAKE 1 CAPSULE BY MOUTH DAILY PROMETHAZINE 25 MG TABLET Take 1 tablet by mouth every * INSULIN GLARGINE (U-100) 100 * Inject 36 units subcutaneousl* BUSPIRONE 5 MG TABLET Take 1.5 tablets by mouth twi* ALBUTEROL SULFATE HFA 90 MCG/* Inhale 2 Puffs as instructed * LYRICA 100 MG CAPSULE TAKE 1 CAPSULE BY MOUTH THREE* BIPAP Bilevel PAP 16/12 cmH2O with * OMEPRAZOLE 20 MG CAPSULE,MARIA EUGENIA* Take 1 capsule by mouth once * INSULIN LISPRO (U-200) 200 UN* Inject subcutaneously 14 unit* METOPROLOL TARTRATE 100 MG TA* TAKE 1 TABLET BY MOUTH TWICE * DULOXETINE 60 MG CAPSULE,MARIA EUGENIA* TAKE 1 CAPSULE BY MOUTH DAILY METFORMIN ER 500 MG TABLET,EX* TAKE 2 TABLETS BY MOUTH TWICE* PSEUDOEPHEDRINE-GUAIFENESIN E* Take 1 tablet by mouth twice * ESTRADIOL 0.01% (0.1 MG/GRAM)* Apply pea-sized amount to per* COMPOUNDED PRESCRIPTION Please fit for BiPAP mask. ONETOUCH ULTRA BLUE TEST STRIP USE DIRECTED TO CHECK BLOO* ONETOUCH DELICA LANCETS 30 GA* USE TO CHECK BLOOD SUGAR 4-5 * COMPOUNDED PRESCRIPTION OCD Titration for portable ox* CAPSAICIN 0.075 % TOPICAL CRE* Apply 1 application to affect* ULTICARE PEN NEEDLE 31 GAUGE * USE DIRECTED. TO INJECT IN* VITAMIN C 500 MG TABLET TAKE 1 TABLET BY MOUTH DAILY FERROUS GLUCONATE 324 MG (38 * TAKE 1 TABLET BY MOUTH DAILY * ISOSORBIDE MONONITRATE ER 60 * Take 1.5 tablets by mouth onc* ATORVASTATIN 40 MG TABLET TAKE 1 TABLET BY MOUTH DAILY DILTIAZEM SR 180 MG 24 HR CAP TAKE 1 CAPSULE BY MOUTH EVERY* LEVOTHYROXINE 100 MCG TABLET TAKE 1 TABLET BY MOUTH EVERY * NITROGLYCERIN 0.4 MG SUBLINGU* DISSOLVE 1 TAB UNDER THE TONG* GLUCOSE 4 GRAM CHEWABLE TABLET Take 4 tablets by mouth as ne* OXYGEN (HOME THERAPY) Inhale 3 L/min as instructed * FLUTICASONE 50 MCG/ACTUATION * Use 2 Sprays in each nostril * FUROSEMIDE 40 MG TABLET Take 1 tablet by mouth twice * COMPOUNDED PRESCRIPTION Evaluation for diabetic shoes* INCONTINENCE PAD, LINER, DISP* 1 Device as needed (urinary i* COMPOUNDED PRESCRIPTION BLOOD PRESSURE CUFF FOR HOME * BLOOD-GLUCOSE METER KIT UAD to test blood sugar ALCOHOL SWABS UAD to clean skin before test* Problem List As Of Date 08/05/2018 Noted Resolved SUBJECTIVE TINNITUS [H93.19] INVALID FOR* PARESH treated with BiPAP [G47.33] INVALID FOR* Hyperlipidemia [E78.5] INVALID FOR* Coronary disease [I25.10] INVALID FOR* Diabetes mellitus, type II ([facility]) [E11.9] INVALID FOR* Morbid obesity ([facility]) [E66.01] Hypothyroidism [E03.9] Anxiety [F41.9] Sleep apnea [G47.30] 02/14/2017 Essential hypertension [I10] Coronary artery disease of [place] lions artery of stoney* AF (paroxysmal atrial fibrillation) ([facility]) [I48.* COPD (chronic obstructive pulmonary disease) (H* GERD without esophagitis [K21.9] Dysphagia [R13.10] Constipation [K59.00] DM type 2 (diabetes mellitus, type 2) ([facility]) [E1* 02/14/2017 Shortness of breath [R06.02] 02/14/2017 Arthritis [M19.90] More... CHF (congestive heart failure) ([facility]) [I50.9] BPPV (benign paroxysmal positional vertigo) [H8*INVALID FOR* RLS (restless legs syndrome) [G25.81] INVALID FOR* Iron deficiency concern: RE RLS [E61.1] INVALID FOR* Tubular adenoma [D36.9] INVALID FOR* Incontinence [R32] More... Gastroparesis [K31.84] INVALID FOR* Pre-op testing [Z01.818] INVALID FOR* More... Hypercapnia [R06.89] INVALID FOR* S/P coronary artery stent placement [Z95.5] INVALID FOR* Stage 3 chronic kidney disease [N18.3] INVALID FOR* Depression [F32.9] INVALID FOR* Obesity, Class II, BMI 35-39.9 [E66.9] INVALID FOR* Encounter Status:Closed by SAAD SILVESTRE on 08/07/18 PROGRESS Observed: 08/03/2018 Status: COMPLETED Source: RUSSELL 1:04 PM [facility] REPOSITORY HNO ID: [id number] Author: Chris Oconnell Service: (none) Author Type: Nurse Practitioner Type: Progress Notes Filed: 08/04/2018 11:28 AM Note Text: 08/03/2018 Patient presents with: Recheck SUBJECTIVE: This is a 63 year old that is here today for concerns related to be in the hospital last week with COPD bronchitis and stomach concerns. She states that she is still having issues with stomach bloating and aching. She states that Saad Silvestre is helping her to coordinate with her GI specialist. She states that her breathing is doing well and she has been wearing her oxygen. She denies SOB, edema, CP, vomiting. Nausea continues. She continues to have looser stools daily. Rarely she will skip a day. She states that she is eating 3 meals a day with occasional snacks. She is worried about her urine. She states that she only urinated once yesterday and she is having a darker color dripping on her pad. She is drinking 3-4 bottles of water a day. She denies burning, urgency, frequency, blood, flank pain. She has urinated 3 times today, large amounts. Diabetes: blood sugars were running high when on prednisone. Has returned to normal 112 yesterday morning fasting and 117 in the afternoon, 118 in the evening. She cannot recall numbers today. She denies any low blood sugars or symptoms. She stated taking The 22 units of humalog at lunch as she was instructed. She is avoiding salt and denies any concerns for high blood pressure including dizziness, lightheadedness, CP. She was reading her papers at home and she is worried that she has chronic kidney disease. Discussed this with her including her labs and she verbalizes understanding. She states that she is enjoying living in her new apartment with her sister. She states that she is helping her with her day to day. She gets rides to medical appointments from [employer]. She states that she is frustrated that not that her sons are not living with her, she does not have a ride to go to the store or to visit. PAST MEDICAL HISTORY Diagnosis Date - Acute chronic obstructive pulmonary disease with respiratory failure ([facility]) - AF (paroxysmal atrial fibrillation) ([facility]) - Anxiety - Arthritis Seeing Dr Elliott - Cervical cancer ([facility]) hysterectomy - CHF (congestive heart failure) ([facility]) - Chronic back pain Seeing Dr. Wallace - Constipation - COPD (chronic obstructive pulmonary disease) ([facility]) DME [facility] for BiPAP and [facility] for O2. - Coronary atherosclerosis of port lions coronary artery Previously seeing Dr. Sosa - DDD (degenerative disc disease), lumbar - DM type 2 (diabetes mellitus, type 2) ([facility]) Seeing Dr. Foley for podiatry - DVT (deep venous thrombosis) ([facility]) Post op INA, BSO. - Dysphagia Seeing Dr. Beaulieu - Emphysema lung ([facility]) - Essential hypertension - Functional dyspepsia - Gastroparesis 2017 mild - GERD without esophagitis - Headache - History of colon polyps 11/28/2016 - Hyperlipidemia - Hypothyroidism - Incontinence Seeing Dr. Chapman - Lung nodule 02/[address] in 3 months - Morbid obesity ([facility]) - Muscle weakness - Nausea - PARESH on CPAP DME [facility] for BiPAP and [facility] [place] for O2. - PE (pulmonary thromboembolism) ([facility]) Post op INA/BSO. - Pneumonia - RLS (restless legs syndrome) - Shortness of breath - Sleep apnea using oxygen currently, not on CPAP - Unsteadiness on feet - Wheezing ALLERGIES Adhesive Tape (Rosins); Cats; Dogs; Orphenadrine; Capsaicin; Ciprofloxacin; Keflex [Cephalexin]; Niacin; Reglan [Metoclopramide Hcl]; Xanthines; Zofran [Ondansetron Hcl (Pf)] MEDICATIONS Current Outpatient Prescriptions: predniSONE (DELTASONE) 5 mg tablet Take 4 tablets by mouth once daily. doxycycline (VIBRA-TABS) 100 mg tablet Take 1 tablet by mouth twice daily for 10 days. aspirin, enteric coated (ASPIRIN, ENTERIC COATED) 81 mg EC tablet TAKE 1 TABLET BY MOUTH EVERY MORNING CLAUDIA-KYLE 8.6 mg tab TAKE 1 TABLET BY MOUTH TWICE A DAY STOOL SOFTENER 100 mg capsule TAKE 1 CAPSULE BY MOUTH DAILY promethazine (PHENERGAN) 25 mg tablet Take 1 tablet by mouth every 6 hours as needed. insulin glargine (LANTUS SOLOSTAR U-100 INSULIN) 100 unit/mL (3 mL) inpn Inject 36 units subcutaneously twice daily busPIRone (BUSPAR) 5 mg tablet Take 1.5 tablets by mouth twice daily. albuterol HFA (PROAIR HFA) 90 mcg/actuation inhaler Inhale 2 Puffs as instructed every 4 hours as needed for Wheezing/Shortness of Breath. LYRICA 100 mg capsule TAKE 1 CAPSULE BY MOUTH THREE TIMES A DAY BIPAP Bilevel PAP 16/12 cmH2O with 2 LPM oxygen bleed in, mask, tubing, filters, heated humidity, lifetime supplies. Dx: G47.33, G47.39. omeprazole (PRILOSEC) 20 mg capsule Take 1 capsule by mouth once daily. insulin lispro (HUMALOG KWIKPEN INSULIN) 200 unit/mL (3 mL) injection Inject subcutaneously 14 units with breakfast, 22 units with lunch, and 24 units with dinner metoprolol tartrate, short acting, (LOPRESSOR) 100 mg tablet TAKE 1 TABLET BY MOUTH TWICE A DAY DULoxetine (CYMBALTA) 60 mg capsule TAKE 1 CAPSULE BY MOUTH DAILY metFORMIN ER (GLUCOPHAGE XR) 500 mg 24 hr tablet TAKE 2 TABLETS BY MOUTH TWICE A DAY Pseudoephedrine-guaiFENesin (MUCINEX D MAXIMUM STRENGTH) 120- 1,200 mg Tb12 Take 1 tablet by mouth twice daily. estradiol (ESTRACE) 0.01 % (0.1 mg/gram) vaginal cream Apply pea-sized amount to perineum and 1 applicator vaginally Mon, Wed, Fri for atrophic vaginitis. COMPOUNDED PRESCRIPTION Please fit for BiPAP mask. ONETOUCH ULTRA BLUE TEST STRIP test strip USE DIRECTED TO CHECK BLOOD SUGAR 4-5 TIMES DAILY ONETOUCH DELICA LANCETS 30 gauge misc USE TO CHECK BLOOD SUGAR 4-5 TIMES DALIY COMPOUNDED PRESCRIPTION OCD Titration for portable oxygen concentrator Oxygen Flow Rate between 2-6 liters. To keep oxygen saturation at or above 92%. capsaicin (ZOSTRIX-HP) 0.075 % topical cream Apply 1 application to affected area four times daily. ULTICARE PEN NEEDLE 31 gauge x 5/16 ndle USE DIRECTED. TO INJECT INSULINS VITAMIN C 500 mg tablet TAKE 1 TABLET BY MOUTH DAILY Ferrous Gluconate (FERGON) 324 mg (38 mg iron) tablet TAKE 1 TABLET BY MOUTH DAILY WITH BREAKFAST isosorbide mononitrate ER (IMDUR) 60 mg 24 hr tablet Take 1.5 tablets by mouth once daily. In the morning atorvastatin (LIPITOR) 40 mg tablet TAKE 1 TABLET BY MOUTH DAILY diltiazem CD (CARDIZEM CD, CARTIA XT) 180 mg 24 hr capsule TAKE 1 CAPSULE BY MOUTH EVERY MORNING levothyroxine (SYNTHROID) 100 mcg tablet TAKE 1 TABLET BY MOUTH EVERY MORNING ELIQUIS 2.5 mg tab tab(s) TAKE 1 TABLET BY MOUTH TWICE A DAY nitroglycerin sublingual (NITROQUICK) 0.4 mg SL tablet DISSOLVE 1 TAB UNDER THE TONGUE NEEDED FOR CHEST PAIN EVERY 5 MINUTES UP TO 3 TIMES. IF NO RELIEF CALL 911. glucose 4 gram chewable tablet Take 4 tablets by mouth as needed for Low Blood Sugar. OXYGEN, HOME THERAPY, Inhale 3 L/min as instructed as directed. fluticasone (FLONASE) 50 mcg/actuation nasal spray Use 2 Sprays in each nostril once daily. furosemide (LASIX) 40 mg tablet Take 1 tablet by mouth twice daily. COMPOUNDED PRESCRIPTION Evaluation for diabetic shoes and inserts Dx: E11.65, Z79.4 Incontinence Pad, Liner, Disp pads 1 Device as needed (urinary incontinence). Prevail incontinence pads. Dx: urinary incontinence. Size: small Blood Pressure Cuff - Home Use BLOOD PRESSURE CUFF FOR HOME USE. DX: LABILE BLOOD PRESSURE Blood-Glucose Meter (ONETOUCH ULTRA2) monitoring kit UAD to test blood sugar Alcohol Swabs padm UAD to clean skin before testing blood sugar and injecting insulins. No current facility-administered medications for this visit. Medications and allergies reviewed by this provider. 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 Social History Main Topics Smoking status: Former Smoker Packs/day: 1.00 Years: 28.00 Types: Cigarettes Start date: 1978 Quit date: 09/22/2005 Smokeless tobacco: Never Used Comment: Father smoked in childhood. 2nd spouse smoked in home. Alcohol use: No Drug use: No Sexual activity: No Social History Narrative 1 year in current home. No basement, 1 parakeet. Room A/C. Electric baseboard heat. REVIEW OF SYSTEMS see HPI OBJECTIVE: BP 102/70 Pulse 65 Resp 16 SpO2 93% . Vital signs reviewed by this provider. PHYSICAL EXAMINATION: General appearance: Well appearing, alert, in no acute distress, well-hydrated, well nourished. Skin: Skin color, texture, turgor normal, no suspicious rashes or lesions Neck: Supple, no adenopathy; thyroid symmetric, normal size, no bruits Lungs: lungs clear to auscultation. No wheezing, rhonchi, rales Heart: RRR without murmur, gallop, or rubs. No ectopy Abdomen: Normal abdominal exam, Abdomen soft, non-tender. Bowel sounds normal. No masses, organomegaly Extremities: No deformities, edema, skin discoloration, clubbing or cyanosis. Good capillary refill. , Pulses: 2+ ASSESSMENT/PLAN: 1. Dark urine - ICD9: 791.9, ICD10: R82.998 (primary diagnosis) - Negative for UTI - encouraged to drink adequate amounts of water and record when she is urinating - UA DIP, URINE (POC) - follow up next week as planned 2. Decreased urination - ICD9: 788.5, ICD10: R34 - see above 3. Type 2 diabetes mellitus with diabetic neuropathy, with long-term current use of insulin (HCC) - ICD9: 250.60, 357.2, V58.67, ICD10: E11.40, Z79.4 Controlled. - Continue current medications - Blood glucose monitoring - Discussed diabetic education issues of hypoglycemic symptoms, hyperglycemic symptoms, diet and use and side effects of insulin with patient. 4. Essential hypertension - ICD9: 401.9, ICD10: I10 - good control - Continue current medication(s) - Recommended regular aerobic exercise. - Reviewed risks of HTN and principles of treatment - Goal of BP <130/80 - Recommended no refined sugar, low refined starch, healthy oil intake (olive oil), healthy protein (fish) along the lines of the Mediterranean diet. 5. Chronic obstructive pulmonary disease, unspecified COPD type (HCC) - ICD9: 496, ICD10: J44.9 - continue with O2 and medications as prescribed 6. Stage 3 chronic kidney disease (HCC) - ICD9: 585.3, ICD10: N18.3 - discussed diagnosis and recent lab values 7. Gastroparesis - ICD9: 536.3, ICD10: K31.84 - follow up with Dr. Bay as planned Chris Oconnell APRN.LM CNOV Observed: 08/03/2018 Status: COMPLETED Source: RUSSELL 12:40 PM [facility] REPOSITORY Office Visit (FAMPWS) TAMIA PANDA ([id number]) 1955 F Date Time Provider Department 08/03/18 12:40 PM CHRIS OCONNELL (LM) [facility] During your visit today, we recorded the following information about you: Pulse Respiration Blood pressure 65/minute 16/minute 102/70 Chris Oconnell APRN.LM 08/04/2018 11:28 AM Signed 08/03/2018 Patient presents with: Recheck SUBJECTIVE: This is a 63 year old that is here today for concerns related to be in the hospital last week with COPD bronchitis and stomach concerns. She states that she is still having issues with stomach bloating and aching. She states that Saad Silvestre is helping her to coordinate with her GI specialist. She states that her breathing is doing well and she has been wearing her oxygen. She denies SOB, edema, CP, vomiting. Nausea continues. She continues to have looser stools daily. Rarely she will skip a day. She states that she is eating 3 meals a day with occasional snacks. She is worried about her urine. She states that she only urinated once yesterday and she is having a darker color dripping on her pad. She is drinking 3-4 bottles of water a day. She denies burning, urgency, frequency, blood, flank pain. She has urinated 3 times today, large amounts. Diabetes: blood sugars were running high when on prednisone. Has returned to normal 112 yesterday morning fasting and 117 in the afternoon, 118 in the evening. She cannot recall numbers today. She denies any low blood sugars or symptoms. She stated taking The 22 units of humalog at lunch as she was instructed. She is avoiding salt and denies any concerns for high blood pressure including dizziness, lightheadedness, CP. She was reading her papers at home and she is worried that she has chronic kidney disease. Discussed this with her including her labs and she verbalizes understanding. She states that she is enjoying living in her new apartment with her sister. She states that she is helping her with her day to day. She gets rides to medical appointments from [employer]. She states that she is frustrated that not that her sons are not living with her, she does not have a ride to go to the store or to visit. PAST MEDICAL HISTORY Diagnosis Date - Acute chronic obstructive pulmonary disease with respiratory failure ([facility]) - AF (paroxysmal atrial fibrillation) ([facility]) - Anxiety - Arthritis Seeing Dr Elliott - Cervical cancer ([facility]) hysterectomy - CHF (congestive heart failure) ([facility]) - Chronic back pain Seeing Dr. Wallace - Constipation - COPD (chronic obstructive pulmonary disease) ([facility]) AISHA Kirk for BiPAP and [facility] [place] for O2. - Coronary atherosclerosis of port lions coronary artery Previously seeing Dr. Sosa - DDD (degenerative disc disease), lumbar - DM type 2 (diabetes mellitus, type 2) ([facility]) Seeing Dr. Foley for podiatry - DVT (deep venous thrombosis) ([facility]) Post op INA, BSO. - Dysphagia Seeing Dr. Beaulieu - Emphysema lung ([facility]) - Essential hypertension - Functional dyspepsia - Gastroparesis 2017 mild - GERD without esophagitis - Headache - History of colon polyps 11/28/2016 - Hyperlipidemia - Hypothyroidism - Incontinence Seeing Dr. Chapman - Lung nodule 02/[address] in 3 months - Morbid obesity ([facility]) - Muscle weakness - Nausea - PARESH on CPAP AISHA Kirk for BiPAP and [facility] [place] for O2. - PE (pulmonary thromboembolism) ([facility]) Post op INA/BSO. - Pneumonia - RLS (restless legs syndrome) - Shortness of breath - Sleep apnea using oxygen currently, not on CPAP - Unsteadiness on feet - Wheezing ALLERGIES Adhesive Tape (Rosins); Cats; Dogs; Orphenadrine; Capsaicin; Ciprofloxacin; Keflex [Cephalexin]; Niacin; Reglan [Metoclopramide Hcl]; Xanthines; Zofran [Ondansetron Hcl (Pf)] MEDICATIONS Current Outpatient Prescriptions: predniSONE (DELTASONE) 5 mg tablet Take 4 tablets by mouth once daily. doxycycline (VIBRA-TABS) 100 mg tablet Take 1 tablet by mouth twice daily for 10 days. aspirin, enteric coated (ASPIRIN, ENTERIC COATED) 81 mg EC tablet TAKE 1 TABLET BY MOUTH EVERY MORNING CLAUDIA-KYLE 8.6 mg tab TAKE 1 TABLET BY MOUTH TWICE A DAY STOOL SOFTENER 100 mg capsule TAKE 1 CAPSULE BY MOUTH DAILY promethazine (PHENERGAN) 25 mg tablet Take 1 tablet by mouth every 6 hours as needed. insulin glargine (LANTUS SOLOSTAR U-100 INSULIN) 100 unit/mL (3 mL) inpn Inject 36 units subcutaneously twice daily busPIRone (BUSPAR) 5 mg tablet Take 1.5 tablets by mouth twice daily. albuterol HFA (PROAIR HFA) 90 mcg/actuation inhaler Inhale 2 Puffs as instructed every 4 hours as needed for Wheezing/Shortness of Breath. LYRICA 100 mg capsule TAKE 1 CAPSULE BY MOUTH THREE TIMES A DAY BIPAP Bilevel PAP 16/12 cmH2O with 2 LPM oxygen bleed in, mask, tubing, filters, heated humidity, lifetime supplies. Dx: G47.33, G47.39. omeprazole (PRILOSEC) 20 mg capsule Take 1 capsule by mouth once daily. insulin lispro (HUMALOG KWIKPEN INSULIN) 200 unit/mL (3 mL) injection Inject subcutaneously 14 units with breakfast, 22 units with lunch, and 24 units with dinner metoprolol tartrate, short acting, (LOPRESSOR) 100 mg tablet TAKE 1 TABLET BY MOUTH TWICE A DAY DULoxetine (CYMBALTA) 60 mg capsule TAKE 1 CAPSULE BY MOUTH DAILY metFORMIN ER (GLUCOPHAGE XR) 500 mg 24 hr tablet TAKE 2 TABLETS BY MOUTH TWICE A DAY Pseudoephedrine-guaiFENesin (MUCINEX D MAXIMUM STRENGTH) 120- 1,200 mg Tb12 Take 1 tablet by mouth twice daily. estradiol (ESTRACE) 0.01 % (0.1 mg/gram) vaginal cream Apply pea-sized amount to perineum and 1 applicator vaginally Mon, Wed, Fri for atrophic vaginitis. COMPOUNDED PRESCRIPTION Please fit for BiPAP mask. M/A-COMUCH ULTRA BLUE TEST STRIP test strip USE DIRECTED TO CHECK BLOOD SUGAR 4-5 TIMES DAILY ONETOUCH DELICA LANCETS 30 gauge misc USE TO CHECK BLOOD SUGAR 4-5 TIMES DALIY COMPOUNDED PRESCRIPTION OCD Titration for portable oxygen concentrator Oxygen Flow Rate between 2-6 liters. To keep oxygen saturation at or above 92%. capsaicin (ZOSTRIX-HP) 0.075 % topical cream Apply 1 application to affected area four times daily. ULTICARE PEN NEEDLE 31 gauge x 5/16 ndle USE DIRECTED. TO INJECT INSULINS VITAMIN C 500 mg tablet TAKE 1 TABLET BY MOUTH DAILY Ferrous Gluconate (FERGON) 324 mg (38 mg iron) tablet TAKE 1 TABLET BY MOUTH DAILY WITH BREAKFAST isosorbide mononitrate ER (IMDUR) 60 mg 24 hr tablet Take 1.5 tablets by mouth once daily. In the morning atorvastatin (LIPITOR) 40 mg tablet TAKE 1 TABLET BY MOUTH DAILY diltiazem CD (CARDIZEM CD, CARTIA XT) 180 mg 24 hr capsule TAKE 1 CAPSULE BY MOUTH EVERY MORNING levothyroxine (SYNTHROID) 100 mcg tablet TAKE 1 TABLET BY MOUTH EVERY MORNING ELIQUIS 2.5 mg tab tab(s) TAKE 1 TABLET BY MOUTH TWICE A DAY nitroglycerin sublingual (NITROQUICK) 0.4 mg SL tablet DISSOLVE 1 TAB UNDER THE TONGUE NEEDED FOR CHEST PAIN EVERY 5 MINUTES UP TO 3 TIMES. IF NO RELIEF CALL 911. glucose 4 gram chewable tablet Take 4 tablets by mouth as needed for Low Blood Sugar. OXYGEN, HOME THERAPY, Inhale 3 L/min as instructed as directed. fluticasone (FLONASE) 50 mcg/actuation nasal spray Use 2 Sprays in each nostril once daily. furosemide (LASIX) 40 mg tablet Take 1 tablet by mouth twice daily. COMPOUNDED PRESCRIPTION Evaluation for diabetic shoes and inserts Dx: E11.65, Z79.4 Incontinence Pad, Liner, Disp pads 1 Device as needed (urinary incontinence). Prevail incontinence pads. Dx: urinary incontinence. Size: small Blood Pressure Cuff - Home Use BLOOD PRESSURE CUFF FOR HOME USE. DX: LABILE BLOOD PRESSURE Blood-Glucose Meter (ONETOUCH ULTRA2) monitoring kit UAD to test blood sugar Alcohol Swabs padm UAD to clean skin before testing blood sugar and injecting insulins. No current facility-administered medications for this visit. Medications and allergies reviewed by this provider. 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 Social History Main Topics Smoking status: Former Smoker Packs/day: 1.00 Years: 28.00 Types: Cigarettes Start date: 1978 Quit date: 09/22/2005 Smokeless tobacco: Never Used Comment: Father smoked in childhood. 2nd spouse smoked in home. Alcohol use: No Drug use: No Sexual activity: No Social History Narrative 1 year in current home. No basement, 1 parakeet. Room A/C. Electric baseboard heat. REVIEW OF SYSTEMS see HPI OBJECTIVE: BP 102/70 Pulse 65 Resp 16 SpO2 93% . Vital signs reviewed by this provider. PHYSICAL EXAMINATION: General appearance: Well appearing, alert, in no acute distress, well-hydrated, well nourished. Skin: Skin color, texture, turgor normal, no suspicious rashes or lesions Neck: Supple, no adenopathy; thyroid symmetric, normal size, no bruits Lungs: lungs clear to auscultation. No wheezing, rhonchi, rales Heart: RRR without murmur, gallop, or rubs. No ectopy Abdomen: Normal abdominal exam, Abdomen soft, non-tender. Bowel sounds normal. No masses, organomegaly Extremities: No deformities, edema, skin discoloration, clubbing or cyanosis. Good capillary refill. , Pulses: 2+ ASSESSMENT/PLAN: 1. Dark urine - ICD9: 791.9, ICD10: R82.998 (primary diagnosis) - Negative for UTI - encouraged to drink adequate amounts of water and record when she is urinating - UA DIP, URINE (POC) - follow up next week as planned 2. Decreased urination - ICD9: 788.5, ICD10: R34 - see above 3. Type 2 diabetes mellitus with diabetic neuropathy, with long-term current use of insulin (HCC) - ICD9: 250.60, 357.2, V58.67, ICD10: E11.40, Z79.4 Controlled. - Continue current medications - Blood glucose monitoring - Discussed diabetic education issues of hypoglycemic symptoms, hyperglycemic symptoms, diet and use and side effects of insulin with patient. 4. Essential hypertension - ICD9: 401.9, ICD10: I10 - good control - Continue current medication(s) - Recommended regular aerobic exercise. - Reviewed risks of HTN and principles of treatment - Goal of BP <130/80 - Recommended no refined sugar, low refined starch, healthy oil intake (olive oil), healthy protein (fish) along the lines of the Mediterranean diet. 5. Chronic obstructive pulmonary disease, unspecified COPD type (HCC) - ICD9: 496, ICD10: J44.9 - continue with O2 and medications as prescribed 6. Stage 3 chronic kidney disease (HCC) - ICD9: 585.3, ICD10: N18.3 - discussed diagnosis and recent lab values 7. Gastroparesis - ICD9: 536.3, ICD10: K31.84 - follow up with Dr. Bay as planned Chris Oconnell APRN.DATA INPUT CLERK Referring Provider: SELF [[id number]] Allergies As of Date: 08/03/2018 Noted Allergy Reaction ADHESIVE TAPE (ROSINS) 04/04/2015 5 - Intolerance Comments: Surgical tape leaves rash Irritates skin badly and blisters along with medical tape CATS 04/10/2016 14 - Other: See Comments Comments: Congested and itchy, difficulty breathing DOGS 04/10/2016 14 - Other: See Comments Comments: Congestion, sneezing, and difficulty breathing ORPHENADRINE 04/10/2016 16 - Unknown CAPSAICIN 03/02/2018 9 - Itching CIPROFLOXACIN 12/11/2011 14 - Other: See Comments Comments: Red, hot, itchy rash KEFLEX (CEPHALEXIN) 07/10/2016 4 - Hives Comments: Negative skin testing and successful completion of an oral amoxicillin challenge was completed on 03/02/2018. Cephalexin shares an almost identical R1 side chain to amoxicillin; therefore, it is unlikely that she would be at elevated risk for developing an IgE-mediated reaction (allergic/anaphylactic). If she should need this medication in the future, I would recommend giving the first dose in a supervised medical setting. If no reaction after 30 minutes, proceed with regular dosing. NIACIN 04/04/2015 16 - Unknown Comments: Pt states its niacin its niaspan REGLAN (METOCLOPRAMIDE HCL) 03/04/2017 14 - Other: See Comments Comments: Unable to sleep XANTHINES 10/18/2004 16 - Unknown ZOFRAN (ONDANSETRON HCL (PF)) 02/03/2018 9 - Itching Date Reviewed: 08/03/2018 Reviewed by: Leilani Davis) NELI Simmons - Fully Assessed Reason for Visit: Recheck [92] Primary Visit Diagnosis:Dark urine [R82.998] Other Visit Diagnoses:Decreased urination [R34] Type 2 diabetes mellitus with diabetic neuropathy, with long-term current use of insulin ([facility]) [E11.40, Z79.4] Essential hypertension [I10] Chronic obstructive pulmonary disease, unspecified COPD type ([facility]) [J44.9] Stage 3 chronic kidney disease ([facility]) [N18.3] Gastroparesis [K31.84] Order(s):UA DIP, URINE (POC) [[id number]] Order #: [id number]. #:[id number] Prescriptions as of 08/03/2018 Sig: ASPIRIN 81 MG TABLET,DELAYED * TAKE 1 TABLET BY MOUTH EVERY * CLAUDIA-KYLE 8.6 MG TABLET TAKE 1 TABLET BY MOUTH TWICE * STOOL SOFTENER 100 MG CAPSULE TAKE 1 CAPSULE BY MOUTH DAILY PROMETHAZINE 25 MG TABLET Take 1 tablet by mouth every * INSULIN GLARGINE (U-100) 100 * Inject 36 units subcutaneousl* BUSPIRONE 5 MG TABLET Take 1.5 tablets by mouth twi* ALBUTEROL SULFATE HFA 90 MCG/* Inhale 2 Puffs as instructed * LYRICA 100 MG CAPSULE TAKE 1 CAPSULE BY MOUTH THREE* BIPAP Bilevel PAP 16/12 cmH2O with * OMEPRAZOLE 20 MG CAPSULE,MARIA EUGENIA* Take 1 capsule by mouth once * INSULIN LISPRO (U-200) 200 UN* Inject subcutaneously 14 unit* METOPROLOL TARTRATE 100 MG TA* TAKE 1 TABLET BY MOUTH TWICE * DULOXETINE 60 MG CAPSULE,MARIA EUGENIA* TAKE 1 CAPSULE BY MOUTH DAILY METFORMIN ER 500 MG TABLET,EX* TAKE 2 TABLETS BY MOUTH TWICE* PSEUDOEPHEDRINE-GUAIFENESIN E* Take 1 tablet by mouth twice * ESTRADIOL 0.01% (0.1 MG/GRAM)* Apply pea-sized amount to per* COMPOUNDED PRESCRIPTION Please fit for BiPAP mask. ONETOUCH ULTRA BLUE TEST STRIP USE DIRECTED TO CHECK BLOO* ONETOUCH DELICA LANCETS 30 GA* USE TO CHECK BLOOD SUGAR 4-5 * COMPOUNDED PRESCRIPTION OCD Titration for portable ox* CAPSAICIN 0.075 % TOPICAL CRE* Apply 1 application to affect* ULTICARE PEN NEEDLE 31 GAUGE * USE DIRECTED. TO INJECT IN* VITAMIN C 500 MG TABLET TAKE 1 TABLET BY MOUTH DAILY FERROUS GLUCONATE 324 MG (38 * TAKE 1 TABLET BY MOUTH DAILY * ISOSORBIDE MONONITRATE ER 60 * Take 1.5 tablets by mouth onc* ATORVASTATIN 40 MG TABLET TAKE 1 TABLET BY MOUTH DAILY DILTIAZEM SR 180 MG 24 HR CAP TAKE 1 CAPSULE BY MOUTH EVERY* LEVOTHYROXINE 100 MCG TABLET TAKE 1 TABLET BY MOUTH EVERY * ELIQUIS 2.5 MG TABLET TAKE 1 TABLET BY MOUTH TWICE * NITROGLYCERIN 0.4 MG SUBLINGU* DISSOLVE 1 TAB UNDER THE TONG* GLUCOSE 4 GRAM CHEWABLE TABLET Take 4 tablets by mouth as ne* OXYGEN (HOME THERAPY) Inhale 3 L/min as instructed * FLUTICASONE 50 MCG/ACTUATION * Use 2 Sprays in each nostril * FUROSEMIDE 40 MG TABLET Take 1 tablet by mouth twice * COMPOUNDED PRESCRIPTION Evaluation for diabetic shoes* INCONTINENCE PAD, LINER, DISP* 1 Device as needed (urinary i* COMPOUNDED PRESCRIPTION BLOOD PRESSURE CUFF FOR HOME * BLOOD-GLUCOSE METER KIT UAD to test blood sugar ALCOHOL SWABS UAD to clean skin before test* Problem List As Of Date 08/03/2018 Noted Resolved SUBJECTIVE TINNITUS [H93.19] INVALID FOR* PARESH treated with BiPAP [G47.33] INVALID FOR* Hyperlipidemia [E78.5] INVALID FOR* Coronary disease [I25.10] INVALID FOR* Diabetes mellitus, type II ([facility]) [E11.9] INVALID FOR* Morbid obesity ([facility]) [E66.01] Hypothyroidism [E03.9] Anxiety [F41.9] Sleep apnea [G47.30] 02/14/2017 Essential hypertension [I10] Coronary artery disease of port lions artery of [place]* AF (paroxysmal atrial fibrillation) ([facility]) [I48.* COPD (chronic obstructive pulmonary disease) (H* GERD without esophagitis [K21.9] Dysphagia [R13.10] Constipation [K59.00] DM type 2 (diabetes mellitus, type 2) ([facility]) [E1* 02/14/2017 Shortness of breath [R06.02] 02/14/2017 Arthritis [M19.90] More... CHF (congestive heart failure) ([facility]) [I50.9] BPPV (benign paroxysmal positional vertigo) [H8*INVALID FOR* RLS (restless legs syndrome) [G25.81] INVALID FOR* Iron deficiency concern: RE RLS [E61.1] INVALID FOR* Tubular adenoma [D36.9] INVALID FOR* Incontinence [R32] More... Gastroparesis [K31.84] INVALID FOR* Pre-op testing [Z01.818] INVALID FOR* More... Hypercapnia [R06.89] INVALID FOR* S/P coronary artery stent placement [Z95.5] INVALID FOR* Stage 3 chronic kidney disease [N18.3] INVALID FOR* Depression [F32.9] INVALID FOR* Obesity, Class II, BMI 35-39.9 [E66.9] INVALID FOR* Medications Discontinued During This Encounter doxycycline (VIBRA-TABS) 100 mg tabl* 20 t* 0 07/29/2018 08/03/2018 Class: Med Update Route: ORAL Sig: Take 1 tablet by mouth twice daily for 10 days. Disc: Reason for discontinue is not on file. predniSONE (DELTASONE) 5 mg tablet 20 t* 0 07/29/2018 08/03/2018 Class: Med Update Route: ORAL Sig: Take 4 tablets by mouth once daily. Disc: Reason for discontinue is not on file. Follow-up and Disposition History Recorded Encounter Status:Closed by CHRIS OCONNELL on 08/04/18 PROGRESS Observed: 07/29/2018 Status: COMPLETED Source: RUSSELL 4:01 PM [facility] [place] REPOSITORY HNO ID: [id number] Author: Saad (Nina) Larry Service: (none) Author Type: Registered Nurse Type: Progress Notes Filed: 07/29/2018 4:02 PM Note Text: PRIMARY CARE COORDINATION QUICK NOTE Provider Action/WILLEM BANGURA, pt left message she couldn't come to TCM appt today, her ride never came to pick her up for appt. Patient identified by name and date . Saad Silvestre RN July 29, 2018 4:02 PM 12 LEAD ELECTROCARDIOGRAM Observed: 07/29/2018 Status: F Source: MEARS 2:22 PM [facility] REPOSITORY [facility] Cardiovascular Services [facility] [place] [place] [address] 12 Lead EKG 07/22/18 1722 MR#: [id number] Acct: [id number] Name: TAMIA PANDA Rep #: [id number] : 1955 63 From: Bart Blas MD Attending Dr: Status: DEP ER Ordering Dr: Bao Quintana MD Date: 07/22/18 Location: ED Sex: F C Admitted: Test Reason : SOB Blood Pressure : / mmHG Vent. Rate : 075 BPM Atrial Rate : 357 BPM P-R Int : 000 ms QRS Dur : 074 ms QT Int : 428 ms P-R-T Axes : 000 003 180 degrees QTc Int : 477 ms Atrial fibrillation Low voltage QRS Nonspecific T wave abnormality Prolonged QT Abnormal ECG Confirmed by BART BLAS MD ([id number]), senior technical editor SHYANNE TERRAZAS ([id number]) on 07/29/2018 2:21:58 PM Referred By: DC Confirmed By:BART BLAS MD 07/29/18 1422 Date Bart Blas MD CC: Bhupendra Oliveira MD; Bao Quintana MD Signed PROGRESS Observed: 07/29/2018 Status: COMPLETED Source: RUSSELL 12:33 PM [facility] [place] REPOSITORY HNO ID: [id number] Author: Katie Rueda) [employer]log[employer] Service: (none) Author Type: Nurse Practitioner Type: Progress Notes Filed: 07/29/2018 12:33 PM Note Text: Done. Katie Ybarra PROGRESS Observed: 07/28/2018 Status: COMPLETED Source: RUSSELL 2:32 PM [facility] [place] REPOSITORY HNO ID: [id number] Author: Saad (Rn) Larry Service: (none) Author Type: Registered Nurse Type: Progress Notes Filed: 07/28/2018 3:14 PM Note Text: TRANSITION CARE MANAGEMENT (TCM) INITIAL CONTACT Provider Action/FYI: PLEASE FILE MEDICATION UPDATES Please note Blood Sugars Pt only taking 16 units Humalog at lunch, instructed correct dose is 22 units States breathing has improved and appetite slowly improving. Initial contact with patient post discharge, spoke to patient. Patient identified by name and . TRANSITION CARE MANAGEMENT: Date of Outreach: 07/28/2018 Outreach Attempt 1: Contact Made Date of Discharge 07/26/2018 Some recent data might be hidden SUMMARY: -Pt discharged from [facility] on 07/26. -Follow up appointment on 07/29 with Katie Mckeon CNP. -Medication review done with patient and [place] faxed list. -Admitted for: Acute respiratory failure with hypoxia (Acute) COPD with acute exacerbation (Acute) CONCERNS: Breathing has improved, wearing O2 / and using BIPAP every night. Has required rescue inhaler a couple of times since discharge States stomach is better, getting some appetite and eating a little. States stomach was very bloated in the hospital States she was to see Dr. Bay in 3 mos and doesn't have appt (P[facility] called BMI desk and left msg to call pt to schedule a 3 month f/u appt.) Tamia Panda is a 63 year old female who reports glucose readings as noted. DATE 07/27 07/26 07/25 07/24 07/23 07/22 07/21 Fasting 201 Hosp Hosp 105 167 134 396 Afternoon 288 Evening 226 233 Hosp 204 88 244 Any low blood sugars during this period of reporting No Patient's diabetes medications as follows: insulin lispro (HUMALOG KWIKPEN INSULIN) 200 unit/mL Inject subcutaneously 14 units with breakfast, 22 units with lunch, and 24 units with dinner PT VERBALIZED ONLY TAKING 16 UNITS AT LUNCH, INSTRUCTED ON CORRECT DOSE insulin glargine (LANTUS SOLOSTAR U-100 INSULIN) Inject 36 units subcutaneously twice daily metFORMIN ER (GLUCOPHAGE XR) 500 mg 2 TABLETS BY MOUTH TWICE A DAY NEW MEDICATIONS: Prednisone 4 tab PO DAILY #20 tablet MEDS HELD/DISCONTINUED: None BRIEF HOSPITAL COURSE: COPIED FROM [facility] MEDITECH: The patient is a 63 year old F presents with shortness of breath and malaise. Patient presented previous presented to the emergency room on 22 July with acute bronchitis and discharged with doxycycline. Patient presented again to the emergency room on the and found to have an acute exacerbation of COPD possibly related to bronchitis. Patient was put on IV steroids. Patient really did not have any significant wheezes but was continued on IV steroids. Today, patient has no wheezes and is stable on chronic amount of oxygen at home. Patient will be given 40 mg of prednisone days. Patient will continue with the doxycycline that she was previously prescribed until completion. Patient will be going home with home health care. Patient will be seen by physical therapy and barring any new needs, the plan will be still for home with home health care. NINA Dumont Observed: 07/28/2018 Status: COMPLETED Source: RUSSELL 12:00 AM [facility] REPOSITORY Patient Outreach (FAMPWS) TAMIA PANDA ([id number]) 1955 F Date Time Provider Department 07/28/18 SAAD SILVESTRE (RN) FAMPWS During your visit today, we recorded the following information about you: Saad Silvestre RN 07/28/2018 3:14 PM Signed TRANSITION CARE MANAGEMENT (TCM) INITIAL CONTACT Provider Action/FYI: PLEASE FILE MEDICATION UPDATES Please note Blood Sugars Pt only taking 16 units Humalog at lunch, instructed correct dose is 22 units States breathing has improved and appetite slowly improving. Initial contact with patient post discharge, spoke to patient. Patient identified by name and . TRANSITION CARE MANAGEMENT: Date of Outreach: 07/28/2018 Outreach Attempt 1: Contact Made Date of Discharge 07/26/2018 Some recent data might be hidden SUMMARY: -Pt discharged from [facility] on 07/26. -Follow up appointment on 07/29 with Katie Mckeon CNP. -Medication review done with patient and [place] faxed list. -Admitted for: Acute respiratory failure with hypoxia (Acute) COPD with acute exacerbation (Acute) CONCERNS: Breathing has improved, wearing O2 24/7 and using BIPAP every night. Has required rescue inhaler a couple of times since discharge States stomach is better, getting some appetite and eating a little. States stomach was very bloated in the hospital States she was to see Dr. Bay in 3 mos and doesn't have appt (PCC called BMI desk and left ms to call pt to schedule a 3 month f/u appt.) Tamia J Senz is a 63 year old female who reports glucose readings as noted. DATE 07/27 07/26 07/25 07/24 07/23 07/22 07/21 Fasting 201 Hosp Hosp 105 167 134 396 Afternoon 288 Evening 226 233 Hosp 204 88 244 Any low blood sugars during this period of reporting No Patient's diabetes medications as follows: insulin lispro (HUMALOG KWIKPEN INSULIN) 200 unit/mL Inject subcutaneously 14 units with breakfast, 22 units with lunch, and 24 units with dinner PT VERBALIZED ONLY TAKING 16 UNITS AT LUNCH, INSTRUCTED ON CORRECT DOSE insulin glargine (LANTUS SOLOSTAR U-100 INSULIN) Inject 36 units subcutaneously twice daily metFORMIN ER (GLUCOPHAGE XR) 500 mg 2 TABLETS BY MOUTH TWICE A DAY NEW MEDICATIONS: Prednisone 4 tab PO DAILY #20 tablet MEDS HELD/DISCONTINUED: None BRIEF HOSPITAL COURSE: COPIED FROM [facility] WEALTH at work: The patient is a 63 year old F presents with shortness of breath and malaise. Patient presented previous presented to the emergency room on 22 July with acute bronchitis and discharged with doxycycline. Patient presented again to the emergency room on the and found to have an acute exacerbation of COPD possibly related to bronchitis. Patient was put on IV steroids. Patient really did not have any significant wheezes but was continued on IV steroids. Today, patient has no wheezes and is stable on chronic amount of oxygen at home. Patient will be given 40 mg of prednisone days. Patient will continue with the doxycycline that she was previously prescribed until completion. Patient will be going home with home health care. Patient will be seen by physical therapy and barring any new needs, the plan will be still for home with home health care. NINA Dumont Podlogar, [email or web address].LM 07/29/2018 12:33 PM Signed Done. Thanks, Katie Silvestre RN 07/29/2018 4:02 PM Signed PRIMARY CARE COORDINATION QUICK NOTE Provider Action/WILLEM BANGURA pt left message she couldn't come to TCM appt today, her ride never came to pick her up for appt. Patient identified by name and date . Saad Silvestre RN July 29, 2018 4:02 PM Allergies As of Date: 07/28/2018 Noted Allergy Reaction ADHESIVE TAPE (ROSINS) 04/04/2015 5 - Intolerance Comments: Surgical tape leaves rash Irritates skin badly and blisters along with medical tape CATS 04/10/2016 14 - Other: See Comments Comments: Congested and itchy, difficulty breathing DOGS 04/10/2016 14 - Other: See Comments Comments: Congestion, sneezing, and difficulty breathing ORPHENADRINE 04/10/2016 16 - Unknown CAPSAICIN 03/02/2018 9 - Itching CIPROFLOXACIN 12/11/2011 14 - Other: See Comments Comments: Red, hot, itchy rash KEFLEX (CEPHALEXIN) 07/10/2016 4 - Hives Comments: Negative skin testing and successful completion of an oral amoxicillin challenge was completed on 03/02/2018. Cephalexin shares an almost identical R1 side chain to amoxicillin; therefore, it is unlikely that she would be at elevated risk for developing an IgE-mediated reaction (allergic/anaphylactic). If she should need this medication in the future, I would recommend giving the first dose in a supervised medical setting. If no reaction after 30 minutes, proceed with regular dosing. NIACIN 04/04/2015 16 - Unknown Comments: Pt states its niacin its niaspan REGLAN (METOCLOPRAMIDE HCL) 03/04/2017 14 - Other: See Comments Comments: Unable to sleep XANTHINES 10/18/2004 16 - Unknown ZOFRAN (ONDANSETRON HCL (PF)) 02/03/2018 9 - Itching Date Reviewed: 06/03/2018 Reviewed by: Clayton Serna Ma - Fully Assessed Reason for Visit: Transition Of Care [4074] Primary Visit Diagnosis:COPD with exacerbation (HCC) [J44.1] Order(s):predniSONE (DELTASONE) 5 mg tabletTake 4 tablets by mouth once daily.Disp: 20 tabletRfl: 0 doxycycline (VIBRA-TABS) 100 mg tabletTake 1 tablet by mouth twice daily for 10 days.Disp: 20 tabletRfl: 0 Prescriptions as of 07/28/2018 Sig: INSULIN GLARGINE (U-100) 100 * Inject 36 units subcutaneousl* ALBUTEROL SULFATE HFA 90 MCG/* Inhale 2 Puffs as instructed * BIPAP Bilevel PAP 16/12 cmH2O with * INSULIN LISPRO (U-200) 200 UN* Inject subcutaneously 14 unit* ESTRADIOL 0.01% (0.1 MG/GRAM)* Apply pea-sized amount to per* COMPOUNDED PRESCRIPTION Please fit for BiPAP mask. VersionOneTOUCH ULTRA BLUE TEST STRIP USE DIRECTED TO CHECK BLOO* ONETOUCH DELICA LANCETS 30 GA* USE TO CHECK BLOOD SUGAR 4-5 * COMPOUNDED PRESCRIPTION OCD Titration for portable ox* ULTICARE PEN NEEDLE 31 GAUGE * USE DIRECTED. TO INJECT IN* VITAMIN C 500 MG TABLET TAKE 1 TABLET BY MOUTH DAILY NITROGLYCERIN 0.4 MG SUBLINGU* DISSOLVE 1 TAB UNDER THE TONG* GLUCOSE 4 GRAM CHEWABLE TABLET Take 4 tablets by mouth as ne* OXYGEN (HOME THERAPY) Inhale 3 L/min as instructed * FLUTICASONE 50 MCG/ACTUATION * Use 2 Sprays in each nostril * COMPOUNDED PRESCRIPTION Evaluation for diabetic shoes* INCONTINENCE PAD, LINER, DISP* 1 Device as needed (urinary i* COMPOUNDED PRESCRIPTION BLOOD PRESSURE CUFF FOR HOME * BLOOD-GLUCOSE METER KIT UAD to test blood sugar ALCOHOL SWABS UAD to clean skin before test* PREDNISONE 5 MG TABLET Take 4 tablets by mouth once * DOXYCYCLINE HYCLATE 100 MG TA* Take 1 tablet by mouth twice * ASPIRIN 81 MG TABLET,DELAYED * TAKE 1 TABLET BY MOUTH EVERY * CLAUDIA-KYLE 8.6 MG TABLET TAKE 1 TABLET BY MOUTH TWICE * STOOL SOFTENER 100 MG CAPSULE TAKE 1 CAPSULE BY MOUTH DAILY PROMETHAZINE 25 MG TABLET Take 1 tablet by mouth every * BUSPIRONE 5 MG TABLET Take 1.5 tablets by mouth twi* LYRICA 100 MG CAPSULE TAKE 1 CAPSULE BY MOUTH THREE* OMEPRAZOLE 20 MG CAPSULE,MARIA EUGENIA* Take 1 capsule by mouth once * METOPROLOL TARTRATE 100 MG TA* TAKE 1 TABLET BY MOUTH TWICE * DULOXETINE 60 MG CAPSULE,MARIA EUGENIA* TAKE 1 CAPSULE BY MOUTH DAILY METFORMIN ER 500 MG TABLET,EX* TAKE 2 TABLETS BY MOUTH TWICE* PSEUDOEPHEDRINE-GUAIFENESIN E* Take 1 tablet by mouth twice * CAPSAICIN 0.075 % TOPICAL CRE* Apply 1 application to affect* FERROUS GLUCONATE 324 MG (38 * TAKE 1 TABLET BY MOUTH DAILY * ISOSORBIDE MONONITRATE ER 60 * Take 1.5 tablets by mouth onc* ATORVASTATIN 40 MG TABLET TAKE 1 TABLET BY MOUTH DAILY DILTIAZEM SR 180 MG 24 HR CAP TAKE 1 CAPSULE BY MOUTH EVERY* LEVOTHYROXINE 100 MCG TABLET TAKE 1 TABLET BY MOUTH EVERY * ELIQUIS 2.5 MG TABLET TAKE 1 TABLET BY MOUTH TWICE * FUROSEMIDE 40 MG TABLET Take 1 tablet by mouth twice * Problem List As Of Date 07/28/2018 Noted Resolved SUBJECTIVE TINNITUS [H93.19] INVALID FOR* PARESH treated with BiPAP [G47.33] INVALID FOR* Hyperlipidemia [E78.5] INVALID FOR* Coronary disease [I25.10] INVALID FOR* Diabetes mellitus, type II ([facility]) [E11.9] INVALID FOR* Morbid obesity ([facility]) [E66.01] Hypothyroidism [E03.9] Anxiety [F41.9] Sleep apnea [G47.30] 02/14/2017 Essential hypertension [I10] Coronary artery disease of [place] artery of stoney* AF (paroxysmal atrial fibrillation) ([facility]) [I48.* COPD (chronic obstructive pulmonary disease) (H* GERD without esophagitis [K21.9] Dysphagia [R13.10] Constipation [K59.00] DM type 2 (diabetes mellitus, type 2) ([facility]) [E1* 02/14/2017 Shortness of breath [R06.02] 02/14/2017 Arthritis [M19.90] More... CHF (congestive heart failure) ([facility]) [I50.9] BPPV (benign paroxysmal positional vertigo) [H8*INVALID FOR* RLS (restless legs syndrome) [G25.81] INVALID FOR* Iron deficiency concern: RE RLS [E61.1] INVALID FOR* Tubular adenoma [D36.9] INVALID FOR* Incontinence [R32] More... Gastroparesis [K31.84] INVALID FOR* Pre-op testing [Z01.818] INVALID FOR* More... Hypercapnia [R06.89] INVALID FOR* S/P coronary artery stent placement [Z95.5] INVALID FOR* Stage 3 chronic kidney disease [N18.3] INVALID FOR* Depression [F32.9] INVALID FOR* Obesity, Class II, BMI 35-39.9 [E66.9] INVALID FOR* Prescriptions ordered this encounter Disp Refills Start End PREDNISONE 5 MG TABLET 20 t* 0 07/29/2018 Class: Med Update Route: ORAL Sig: Take 4 tablets by mouth once daily. DOXYCYCLINE HYCLATE 100 MG TABLET 20 t* 0 07/29/2018 08/08/2018 Class: Med Update Route: ORAL Sig: Take 1 tablet by mouth twice daily for 10 days. Encounter Status:Closed by SAAD SILVESTRE on 07/29/18 12 LEAD ELECTROCARDIOGRAM Observed: 07/27/2018 Status: F Source: KINJAL 3:23 PM [facility] REPOSITORY [facility] Cardiovascular Services [address] [place] [address] 12 Lead EKG 07/25/18 0624 MR#: [id number] Acct: [id number] Name: TAMIA PANDA Rep #: [id number] : 1955 63 From: Bart Blas MD Attending Dr: Yared Fernández DO Status: DIS NICOLE Ordering Dr: Lizette Cuellar MD Date: 07/25/18 Location: [facility] Sex: F C Admitted: 07/25/18 Test Reason : SOB Blood Pressure : / mmHG Vent. Rate : 102 BPM Atrial Rate : 136 BPM P-R Int : 000 ms QRS Dur : 080 ms QT Int : 386 ms P-R-T Axes : 000 -13 119 degrees QTc Int : 503 ms Atrial fibrillation with rapid ventricular response Nonspecific ST and T wave abnormality Abnormal ECG Confirmed by WAN ABRAHAM, BART ([id number]), senior technical editor SHYANNE TERRAZAS ([id number]) on 07/27/2018 3:23:33 PM Referred By: GAURANG Confirmed By:BART BLAS MD 07/27/18 1523 Date Bart Blas MD CC: Bhupendra Oliveira MD; Lizette Cuellar MD; Yared Fernández DO Signed BEDSIDE GLUCOSE Collected: 07/26/2018 Status: F Source: KINJAL 11:51 AM [facility] REPOSITORY TYPE CODE TESTS RESULT OUT OF REFERENCE UNITS RANGE LAB L501.080 70-110 mg/dL High BEDSIDE GLU 315 Result Comment: Insulin Given MANAGEMENT OF PATIENT CARE PER NURSING PROTOCOL Performed By: #### L501.080 #### [facility] Point of Care [address] [place] [address] DISCHARGE SUMMARY Observed: 07/26/2018 Status: F Source: KINJAL 9:25 AM [facility] REPOSITORY [facility] Medical Records Department [address] [place] [address] Discharge Summary 07/26/1822 MR#: [id number] Acct: [id number] Name: TAMIA PANDA Rep #: [id number] : 1955 63 From: Zuhair Cohn DO PCP: Bhupendra Oliveira MD Status: ADM IN Y Location: [place] [address] Discharge Date and Diagnosis - Problem List Patient Problems: Active and Suspected Problems Acute respiratory failure with hypoxia (Acute) COPD with acute exacerbation (Acute) Date of Admission: 07/25/18 Date of Discharge: 07/26/18 - Primary Discharge Diagnosis Active and Suspected Problems Acute respiratory failure with hypoxia (Acute) COPD with acute exacerbation (Acute) - Secondary Discharge Diagnosis Chronic Problems Paroxysmal A-fib (Chronic) Diabetes mellitus type 2 in obese (Chronic) Coronary arteriosclerosis (Chronic) cath 05/2015 mild-moderate disease medical therapy recommended Hypothyroidism (Chronic) Hyperlipemia (Chronic) GERD (gastroesophageal reflux disease) (Chronic) Hypertension (Chronic) COPD (chronic obstructive pulmonary disease) (Chronic) Chronic respiratory insufficiency (Chronic) On home oxygen at night S/P PTCA (percutaneous transluminal coronary angioplasty) (Chronic) PARESH (obstructive sleep apnea) (Chronic) Hospital Course and Treatment Imaging Results: Clinical Impression(s) from Imaging Studies Chest X-Ray 07/25/18 06:25 IMPRESSION: Evolving bibasilar alveolar disease. Small left pleural effusion is suspected. Electronically Signed: Mukul Murray MD at 6:41 EDT Tel , Service support , NA Operations: None Procedures: None Summary of Care Provided: The patient is a 63 year old F presents with shortness of breath and malaise. Patient presented previous presented to the emergency room on 22 July with acute bronchitis and discharged with doxycycline. Patient presented again to the emergency room on the third and found to have an acute exacerbation of COPD possibly related to bronchitis. Patient was put on IV steroids. Patient really did not have any significant wheezes but was continued on IV steroids. Today, patient has no wheezes and is stable on chronic amount of oxygen at home. Patient will be given 40 mg of prednisone days. Patient will continue with the doxycycline that she was previously prescribed until completion. Patient will be going home with home health care. Patient will be seen by physical therapy and barring any new needs, the plan will be still for home with home health care. [] Patient Problems: Active and Suspected Problems Acute respiratory failure with hypoxia (Acute) COPD with acute exacerbation (Acute) - Physical Exam General: Alert, Cooperative, No apparent distress HEENT: Atraumatic, Normocephalic Oral: Moist Mucosa, No Gingival or Mucosal Lesions/ Ulcerations Neck: No Nodes, Thyroid Normal Size and Texture Lungs: Clear to auscultation, No rhonchi, No wheeze, Diminished Cardiovascular: Regular rate, Regular Rhythm, Normal S1, Normal S2, No murmurs Abdomen: Bowel Sounds Present, Soft, Non Tender, Non-Distended, No Hepato-splenomegaly Vital Signs Temp Pulse Resp BP Pulse Ox 36.2 C L 107 H 20 H 149/97 H 96 07/26/18 08:59 07/26/18 09:11 07/26/18 08:59 07/26/18 08:59 07/26/18 08:59 Oxygen Flow Rate (L/min) 2 Oxygen Delivery Method Nasal Cannula Weight: 98.9 kg Body Mass Index (BMI) 39.9 Finger Stick Blood Glucose 118 Intake and Output for Last 24 Hours Intake Total 480 / 480 320 / 320 Balance 480 / 480 320 / 320 Laboratory Tests Past 24 Hrs POC Glucose POC Glucose 210 H 122 H 143 H POC Glucose 245 H Discharge Diet: 1800 Calorie Control Diet Discharge Activity: Return to Normal Activity Call your doctor if you observe: Fever of 101 or Higher, Shortness of breath Home Medications: Medications to take at Discharge Albuterol Inhaler [Ventolin Hfa] 2 puff INHALATION Q4H PRN PRN 02/03/18 Atorvastatin Calcium [Lipitor] 40 mg PO DAILY 02/03/18 Diltiazem HCl [Cartia Xt] 180 mg PO DAILY 02/03/18 Docusate Sodium [Stool Softener] 100 mg PO DAILY 02/03/18 Duloxetine Hcl [Cymbalta] 60 mg PO DAILY 02/03/18 Insulin Lispro [Humalog KwikPen] 22 unit SQ LUNCH 02/03/18 Insulin Lispro [Humalog KwikPen] 24 unit SQ DINNER 02/03/18 Insulin Lispro [Humalog] 14 unit SQ BREAKFAST 02/03/18 Isosorbide Mononitrate [Imdur] 90 mg PO DAILY 02/03/18 Levothyroxine [Synthroid] 100 mcg PO DAILY 02/03/18 Apixaban [Eliquis] 2.5 mg PO BID 05/17/18 Ascorbic Acid [Vitamin C] 500 mg PO DAILY@0800 05/17/18 Metoprolol Tartrate [Lopressor] 100 mg PO BID 05/17/18 Omeprazole [Prilosec] 20 mg PO DAILY 05/17/18 Pregabalin [Lyrica] 100 mg PO TID 05/17/18 Sennosides [Claudia-Kyle] 8.6 mg PO BID 05/17/18 Aspirin [Aspirin EC] 81 mg PO DAILY 07/22/18 Doxycycline Monohydrate 100 mg PO BID #20 cap 07/22/18 Ferrous Gluconate 324 mg PO DAILY 07/22/18 Fluticasone Propionate 2 sprays NASAL DAILY 07/22/18 Ibuprofen 400 mg PO Q6H PRN PRN 07/22/18 Insulin Glargine [Lantus SoloStar Pen] 36 units SC BID 07/22/18 Metformin(XR) [Glucophage Xr] 1,000 mg PO BID 07/22/18 busPIRone [Buspar] 7.5 mg PO BID 07/25/18 Prednisone 4 tab PO DAILY #20 tablet 07/26/18 Following Prescrptions Were Given to Patient: Prednisone 4 tab PO DAILY #20 tablet Primary Care Physician: Bhupendra Oliveira MD [Primary Care Provider] - Within 2 Weeks Please Follow Up With: Adriano Livingston MD When: 1-2 months Patient Instructions: What is COPD?, Discharge Instructions: COPD, COPD: Using Inhalers, Treatment for COPD Disposition: Home with Home Health Minutes spent on discharge:: 32 Patient Condition:: Fair Medical Necessity - Tobacco Use Smoking Status: Former smoker Tobacco Use: Non-smoker Meaningful Use Info Meaningful Use Diagnoses (Choose all that apply): None applicable Code Visit OBSV E AND M: 98560 Observation care discharge 07/26/18924 <Electronically signed by Zuhair Cohn DO> Date Zuhair Jopperi DO Cosigner Signature (if applicable): Date CC: Bhupendra Oliveira MD; Zuhair Cohn DO Signed DISCHARGE INSTRUCTION Observed: 07/26/2018 Status: F Source: KINJAL 9:22 AM [facility] REPOSITORY [facility] Medical Records Department [address] [place] [address] Instructions for Home/Discharge Instructions 07/26/18918 MR#: [id number] Acct: [id number] Name: TAMIA PANDA Rep #: [id number] : 1955 63 From: Zuhair Cohn DO PCP: Bhupendra Oliveira MD Status: ADM IN - Discharge Diagnoses Current Active Problems: Current Active and Chronic Problems Acute respiratory failure with hypoxia (Acute) COPD with acute exacerbation (Acute) You will use the following diet at home:: Calorie/Carbohydrate Controlled (specify 1200, 1400, etc) - 1800 Your food should be the consistency of: Regular Your liquids should be the consistency of: Regular/Thin Discharge Activity: Return to Normal Activity Call your doctor if you observe: Fever of 101 or Higher, Shortness of breath Instructions: What is COPD?, Discharge Instructions: COPD, COPD: Using Inhalers, Treatment for COPD Allergies/Adverse Reactions: Allergies ciprofloxacin [From Cipro] Allergy (Verified 07/25/18 06:11) Hives latex Allergy (Verified 07/25/18 06:11) matos me niacin [From Niaspan Extended-Release] Allergy (Verified 07/25/18 06:11) Hives ondansetron [From Zofran] Allergy (Verified 07/25/18 06:11) Unknown Xanthines Allergy (Verified 07/25/18 06:11) Unknown orphenadrine citrate [From Norgesic] Adverse Reaction (Verified 07/25/18 06:11) groggy medical tape Adverse Reaction (Uncoded 07/25/18 06:11) blisters Medications to take at Discharge Albuterol Inhaler [Ventolin Hfa] 2 puff INHALATION Q4H PRN PRN 02/03/18 Atorvastatin Calcium [Lipitor] 40 mg PO DAILY 02/03/18 Diltiazem HCl [Cartia Xt] 180 mg PO DAILY 02/03/18 Docusate Sodium [Stool Softener] 100 mg PO DAILY 02/03/18 Duloxetine Hcl [Cymbalta] 60 mg PO DAILY 02/03/18 Insulin Lispro [Humalog KwikPen] 22 unit SQ LUNCH 02/03/18 Insulin Lispro [Humalog KwikPen] 24 unit SQ DINNER 02/03/18 Insulin Lispro [Humalog] 14 unit SQ BREAKFAST 02/03/18 Isosorbide Mononitrate [Imdur] 90 mg PO DAILY 02/03/18 Levothyroxine [Synthroid] 100 mcg PO DAILY 02/03/18 Apixaban [Eliquis] 2.5 mg PO BID 05/17/18 Ascorbic Acid [Vitamin C] 500 mg PO DAILY@0800 05/17/18 Metoprolol Tartrate [Lopressor] 100 mg PO BID 05/17/18 Omeprazole [Prilosec] 20 mg PO DAILY 05/17/18 Pregabalin [Lyrica] 100 mg PO TID 05/17/18 Sennosides [Claudia-Kyle] 8.6 mg PO BID 05/17/18 Aspirin [Aspirin EC] 81 mg PO DAILY 07/22/18 Doxycycline Monohydrate 100 mg PO BID #20 cap 07/22/18 Ferrous Gluconate 324 mg PO DAILY 07/22/18 Fluticasone Propionate 2 sprays NASAL DAILY 07/22/18 Ibuprofen 400 mg PO Q6H PRN PRN 07/22/18 Insulin Glargine [Lantus SoloStar Pen] 36 units SC BID 07/22/18 Metformin(XR) [Glucophage Xr] 1,000 mg PO BID 07/22/18 busPIRone [Buspar] 7.5 mg PO BID 07/25/18 Prednisone 4 tab PO DAILY #20 tablet 07/26/18 The following prescriptions were given: Prednisone 4 tab PO DAILY #20 tablet Primary Care Physician: Bhupendra Oliveira MD [Primary Care Provider] - Within 2 Weeks Test Results: Test results from this visit will be discussed in further detail at your follow-up appointment, if applicable. Please Follow Up With: Adriano Livingston MD When: 1-2 months Proposed Discharge Date: 07/26/18 07/26/18 0922 <Electronically signed by Zuhair Cohn DO> Date Zuhair Cohn DO CC: Bhupendra Oliveira MD BEDSIDE GLUCOSE Collected: 07/26/2018 Status: F Source: KINJAL 6:59 AM [facility] REPOSITORY TYPE CODE TESTS RESULT OUT OF REFERENCE UNITS RANGE LAB L501.080 70-110 mg/dL High BEDSIDE GLU 210 Result Comment: MANAGEMENT OF PATIENT CARE PER NURSING PROTOCOL Performed By: #### L501.080 #### [facility] Point of Care [address] [place] [address] CBC W/DIFF, AUTOMATED Collected: 07/26/2018 Status: F Source: KINJAL 6:55 AM [facility] REPOSITORY TYPE CODE TESTS RESULT OUT OF RANGE REFERENCE UNITS LAB L100.1000 4.4-11.0 K/mm3 High WBC 11.9 LAB L100.1200 4.2-5.4 M/mm3 Low RBC 4.12 LAB L100.1300 12.0-15.0 g/dl Low HGB 11.7 LAB L100.1400 37-47 % Normal HCT 37.5 LAB L100.1500 81-99 fL Normal MCV 91.0 LAB L100.1600 27.0-32.0 pg Normal MCH 28.4 LAB L100.1700 32-36 g/gl Low MCHC 31.2 LAB L100.1810 11.6-14.6 % High RDW CV 15.6 LAB L100.1820 35.1-43.9 fl High RDW SD 51.3 LAB L100.1900 150-450 K/mm3 Normal PLT 266 LAB L100.2000 6.2-12.0 fl Normal MPV 10.8 LAB L100.2100 47-70 % High NEUT% 87.4 LAB L100.2200 19-41 % Low LY% 6.7 LAB L100.2300 0-10 % Normal MONO% 5.5 LAB L100.2400 0-5 % Normal EO% 0.0 LAB L100.2500 0-1 % Normal BASO% 0.1 LAB L100.2550 0.0-0.9 % Normal IM GRAN % 0.300 Result Comment: IG% - Immature Granulocytes (promyelocytes, myelocytes and metamyelocytes) > 1% indicates that a LEFT SHIFT is Present. LAB L100.2620 2.0-7.7 X10 3/uL Absolute Neut High 10.4 LAB L100.2720 0.83-4.51 X10 3/ul Low Absolute Lymph 0.80 LAB L100.5500 ADEQ PLT EST Normal ADEQUATE LAB L100.7000 NORM C AND NORMAL C RED CELL MORPH Normal N CYTIC LAB L100.7600 HYPOCHROMASIA Normal RARE Performed By: #### L100.0100 #### [facility] [address] [place], [place], [address] BASIC METABOLIC Collected: 07/26/2018 Status: F Source: MEARS PROFILE (BMP) 6:55 AM [facility] REPOSITORY TYPE CODE TESTS RESULT OUT OF RANGE REFERENCE UNITS LAB L501.0100 74-106 mg/dL High GLU 205 Result Comment: Glucose result greater than or equal to 200 mg/dL suggests DIABETES MELLITUS per A.D.A. criteria. Please note revised GLUCOSE reference range effective 2017. LAB L501.1000 7-18 mg/dL Normal BUN 14 LAB L501.1100 0.55-1.02 mg/dL Low CREAT,SERUM 0.51 Result Comment: The validity of the calculated GFR AND GFRAA in patients over 70 years has not been determined. Clinical correlation is essential. LAB L501.1110 >60 mL/min Normal EST GFR 128 Result Comment: Non- GFR Calc LAB L501.1115 >60 mL/min Normal EST GFR - AA 155 Result Comment: GFR Calc LAB L501.1255 ml/min Normal Estimated CRCL 89.30 LAB L501.1300 10-20 RATIO High BUN/CRE 27.2 LAB L501.2200 8.5-10 mg/dL Normal .1 CA 8.9 LAB L501.5300 136-14 mmol/L Normal 5 NA 141 LAB L501.5600 3.5-5. mmol/L Normal 1 K 4.2 Result Comment: Slight Hemolysis, Result may be falsely increased. LAB L501.5900 98-107 mmol/L Normal CL 102 LAB L501.6100 21.0-32.0 mmol/L Normal CO2 31.0 LAB L501.6200 5-15 Normal 8 GAP Performed By: #### L500.2500 #### [facility] [address] [place], [address] BEDSIDE GLUCOSE Collected: 07/25/2018 Status: F Source: KINJAL 9:27 PM [facility] REPOSITORY TYPE CODE TESTS RESULT OUT OF REFERENCE UNITS RANGE LAB L501.080 70-110 mg/dL High BEDSIDE GLU 122 Result Comment: MANAGEMENT OF PATIENT CARE PER NURSING PROTOCOL Performed By: #### L501.080 #### [facility] Point of Care [address] [place] [address] BEDSIDE GLUCOSE Collected: 07/25/2018 Status: F Source: KINJAL 4:14 PM [facility] REPOSITORY TYPE CODE TESTS RESULT OUT OF REFERENCE UNITS RANGE LAB L501.080 70-110 mg/dL High BEDSIDE GLU 143 Result Comment: MANAGEMENT OF PATIENT CARE PER NURSING PROTOCOL Performed By: #### L501.080 #### [facility] Point of Care [address] [place] [address] BEDSIDE GLUCOSE Collected: 07/25/2018 Status: F Source: KINJAL 11:33 AM [facility] REPOSITORY TYPE CODE TESTS RESULT OUT OF REFERENCE UNITS RANGE LAB L501.080 70-110 mg/dL High BEDSIDE GLU 245 Result Comment: MANAGEMENT OF PATIENT CARE PER NURSING PROTOCOL Performed By: #### L501.080 #### [facility] Point of Care [address] [place] [address] HISTORY AND PHYSICAL Observed: 07/25/2018 Status: F Source: MEARS EXAM 10:28 AM [facility] REPOSITORY [facility] Medical Records Department [address] [place], [place] [address] [address] History and Physical 07/25/18 [facility] MR#: [id number] Acct: [id number] Name: TAMIA PANDA Jennifer Rep #: [id number] : 1955 63 From: Zuhair Cohn DO PCP: Bhupendra Oliveira MD Status: ADM IN Y Location: MS3 [id number] Problem List (1) Acute respiratory failure with hypoxia Status: Acute (2) COPD with acute exacerbation Status: Acute History of Present Illness Date of Admission: 07/25/18 Chief Complaint: shortness of breath. malaise. The patient is a 63 year old F who for the past week has been feeling listless, increasingly short of breath, coughing. Presented to the ER on 07/22/18 and diagnosed with an acute bronchitis and discharged with doxycycline. Despite the antibiotics, she felt worse, and again presented to the ER with subject worsening symptoms. Pt felt to have an acute exacerbation of COPD and received bronchodilators and 125mg of IV Solu-medrol. Some improvement thus far. Overall, similar to her prior episodes of COPD exacerbation. [] Past Medical History Past Medical History (Chronic Problems): Chronic Problems Paroxysmal A-fib (Chronic) Diabetes mellitus type 2 in obese (Chronic) Coronary arteriosclerosis (Chronic) cath 05/2015 mild-moderate disease medical therapy recommended Hypothyroidism (Chronic) Hyperlipemia (Chronic) GERD (gastroesophageal reflux disease) (Chronic) Hypertension (Chronic) COPD (chronic obstructive pulmonary disease) (Chronic) Chronic respiratory insufficiency (Chronic) On home oxygen at night S/P PTCA (percutaneous transluminal coronary angioplasty) (Chronic) PARESH (obstructive sleep apnea) (Chronic) Allergies ciprofloxacin [From Cipro] Allergy (Verified 07/25/18 06:11) Hives latex Allergy (Verified 07/25/18 06:11) matos me niacin [From Niaspan Extended-Release] Allergy (Verified 07/25/18 06:11) Hives ondansetron [From Zofran] Allergy (Verified 07/25/18 06:11) Unknown Xanthines Allergy (Verified 07/25/18 06:11) Unknown orphenadrine citrate [From Norgesic] Adverse Reaction (Verified 07/25/18 06:11) groggy medical tape Adverse Reaction (Uncoded 07/25/18 06:11) blisters Home Medications: Ambulatory Orders Medication Instructions Recorded Albuterol Inhaler [Ventolin Hfa] 2 puff INHALATION Q4H PRN PRN 02/03/18 Atorvastatin Calcium [Lipitor] 40 mg PO DAILY 02/03/18 Surgical History: angioplasty, cholecystectomy, herniorrhaphy, hysterectomy, - - tubal ligation. Psychiatric History: No pertinent psych hx LOG CUT OFF SAWYER History: No pertinent LOG CUT OFF SAWYER history Smoking Status: Former smoker Tobacco Use: Non-smoker Alcohol: None Drugs: None - *Family History Maternal History Items: No pertinent history Paternal History Items: Heart Disease, Stroke - age 62 Offspring History Items: No pertinent history - 5 children, 32 grand children and great grandchildren Sibling History Items: COPD - in sister. Review of Systems Constitutional: Reports: Chills, Malaise, Weakness. Denies: Anorexia, Fever, Night Sweats Eyes: Denies: Blurred vision, Double vision HEENT: Denies: Head Aches, Sinus Congestion, Sinus Drainage Cardiovascular: Reports: Chest Pain - from cough, Edema - chronic Respiratory: Reports: Cough, Shortness of Breath, Shortness of breath upon exertion, Sputum production Gastrointestinal: Reports: Vomiting - with coughing fits. Denies: Abdominal Pain Genitourinary: Denies: Dysuria Gynecological: Denies: Breast symptoms, Sexual concerns Musculoskeletal: Denies: Joint Pain, Joint Tenderness Skin: Denies: Dryness, Jaundice Neurological: Denies: Numbness, Tingling, Focal weakness Psychiatric: Denies: Anxiety, Depression Endocrine: Denies: Change in Body Habitus, Heat/ Cold Intolerance Hematologic/ Lymphatic: Reports: Hx of blood clot. Denies: Easy Bruising, Easy Bleeding Comment: A 10 point review of systems were negative except as mentioned in the history of present illness and the other review of systems. VTE Information - Inpt Only VTE Present on Admission: No VTE Mechan Device Prophylaxis: None VTE Pharm Prophylaxis ordered?: Yes Patient Problems: Active and Suspected Problems Acute respiratory failure with hypoxia (Acute) COPD with acute exacerbation (Acute) - Physical Exam General: Alert, Cooperative, No apparent distress, - - No respiratory distress. No conversational dyspnea. HEENT: Atraumatic, Normocephalic Oral: Moist Mucosa, No Gingival or Mucosal Lesions/ Ulcerations Neck: No Nodes, Thyroid Normal Size and Texture Lungs: Clear to auscultation, Diminished Cardiovascular: Regular rate, Regular Rhythm, Normal S1, Normal S2, No murmurs Abdomen: Bowel Sounds Present, Soft, Non Tender, Non-Distended, No Hepato-splenomegaly, Obese Extremities: No Calf Tenderness, Edema - Trace Skin: No rashes, - - Tinea pedis on her left toes. Musculoskeletal: No Tenderness to Palpation of Joints or Extremities, No Muscle Wasting Neurological: Neuro grossly intact, Muscle tone normal, Coordination normal Psych/Mental Status: Normal Affect, Anxious Vital Signs Temp Pulse Resp BP Pulse Ox 36.1 C L 83 22 H 117/88 H 97 07/25/18 08:39 07/25/18 08:39 07/25/18 08:39 07/25/18 08:39 07/25/18 08:39 Oxygen Flow Rate (L/min) 3 Oxygen Delivery Method Nasal Cannula Weight: 98.9 kg Body Mass Index (BMI) 39.9 Finger Stick Blood Glucose 118 Laboratory Tests Past 24 Hrs WBC 7.4 RBC 4.01 L Hgb 11.6 L Hct 36.7 L MCV 91.5 MCH 28.9 MCHC 31.6 L Clinical Impression(s) from Imaging Studies Chest X-Ray 07/25/18 06:25 IMPRESSION: Evolving bibasilar alveolar disease. Small left pleural effusion is suspected. Electronically Signed: Mukul Murray MD at 6:41 EDT Tel , Service support , Assessment/Plan All Active Problems Mental status alteration (Acute) Acute on chronic respiratory failure with hypoxia and hypercapnia (Acute) COPD exacerbation (Acute) Possible pneumonia (Acute) Atrial fibrillation with RVR (Acute) Hypoglycemia (Acute) Acute metabolic encephalopathy (Acute) Acute respiratory failure with hypoxia (Acute) COPD with acute exacerbation (Acute) COPD with moderate acute bronchitis (Acute) Acute hypoglycemia (Acute) Abnormal nuclear stress test (Resolved) Pneumonia (Resolved) Septic shock (Resolved) 1. Acute hypoxic respiratory failure. * Pulse ox dropped down to 87% * Secondary to COPD exacerbation possible bronchitis less her underlying obstructive sleep apnea * Wean oxygen as tolerated * continue with the doxycycline she was previously prescribed for her bronchitis 2. Acute COPD exacerbation * Continue with bronchodilators * Continue with steroids for now 3. Diabetes mellitus type 2 * Continue with her Lantus and scheduled insulin * Anticipate her blood sugars will rise given the steroids and the patient will also be topped off with a sliding scale 4. Paroxysmal atrial fibrillation * Continue with diltiazem and Eliquis 5. DVT prophylaxis: Patient is already anticoagulated on Eliquis. 6. Disposition: * Depending on patient's overall clinical improvement. Anticipate patient being in the hospital for at least the next 24-48 hours. * Check an amatory pulse ox prior to discharge to see if patient will have increased oxygen demands upon discharge. Code Visit Inpatient E AND M: [id number] Init Hosp L3 07/25/18 1028 <Electronically signed by Zuhair Cohn DO> Date Zuhair Cohn DO Cosigner Signature: Date (if applicable) CC: Bhupendra Oliveira MD; Zuhair Cohn DO Signed EMERGENCY DEPARTMENT Observed: 07/25/2018 Status: F Source: MEARS SUMMARY 7:44 AM [facility] REPOSITORY [facility] Medical Records Department [address] [place] [address] Emergency Department Summary 07/25/18 0613 MR#: [id number] Acct: [id number] Name: TAMIA PANDA Rep #: [id number] : 1955 63 From: Lizette Cuellar MD PCP: Bhupendra Oliveira MD Status: REG ER - ER Visit Summary Date of Service: 07/25/18 Chief Complaint: Shortness of breath History of Present Illness: The patient is a 63 F with increasing shortness of breath over the past 6 days. She has had cough with occasional green sputum. She was seen in the ER on 22 July. She improved after aerosols and was discharged on doxycycline. Patient reports no significant improvement since starting the antibiotics and intermittently feels worse. She had some mild chills tonight but no measured fever. She does report occasional nausea and diarrhea. Physical Examination: Blood pressure is 126/68, temperature 97.4, heart rate 83, respiratory rate 28, pulse ox 99% on 3 L. Patient sitting upright in bed no acute distress. Head neck examination grossly unremarkable. Heart is regular. Lung sounds are with diminished breath sounds throughout. She is tachypneic. Abdomen is soft, nontender, slightly distended. Test Results: CBC reveals a hemoglobin of 11.6. Chemistry studies are significant for glucose of 169. LFTs and lipase are normal. Troponin negative. EKG is A. fib at 102 with no acute ischemia. Portable chest x-ray shows evolving bibasilar alveolar disease. Emergency Department Course and Treatment: Patient was given cycle of aerosols along with Solu-Medrol. On repeat evaluation she has significantly improved air movement throughout but still remains slightly tachypneic. Patient has failed outpatient therapy at this point and I recommended hospitalization for aerosols, steroids, antibiotics. Patient will be given a dose of doxycycline at this time. Treatment Plan: [] Disposition: Admit Impression: COPD exacerbation, failed outpatient management This note was generated with Cureeo dictation software. It may contain incorrect words, spelling, and punctuation that were not noted in review of the chart prior to signing ED Disposition - Plan for ED Patient: Chief Complaint: Shortness of Breath Referrals: Bhupendra Oliveira MD [Primary Care Provider] - What to do if you have Problems For any increased pain, shortness of breath, bleeding, nausea or vomiting, chest pain, or any unexpected problems, contact your Primary Care Provider. Call [facility] ([phone]) or report to the closest Emergency Room. Call 911 if necessary. 07/25/18 0744 <Electronically signed by Lizette Cuellar MD> Date Lizette Cuellar MD Cosigner Signature (If Indicated): Date CC: Bhupendra Oliveira MD CBC W/DIFF, AUTOMATED Collected: 07/25/2018 Status: F Source: KINJAL 7:10 AM [facility] REPOSITORY TYPE CODE TESTS RESULT OUT OF RANGE REFERENCE UNITS LAB L100.1000 4.4-11.0 K/mm3 Normal WBC 7.4 LAB L100.1200 4.2-5.4 M/mm3 Low RBC 4.01 LAB L100.1300 12.0-15.0 g/dl Low HGB 11.6 LAB L100.1400 37-47 % Low HCT 36.7 LAB L100.1500 81-99 fL Normal MCV 91.5 LAB L100.1600 27.0-32.0 pg Normal MCH 28.9 LAB L100.1700 32-36 g/gl Low MCHC 31.6 LAB L100.1810 11.6-14.6 % High RDW CV 15.1 LAB L100.1820 35.1-43.9 fl High RDW SD 49.2 LAB L100.1900 150-450 K/mm3 Normal PLT 224 LAB L100.2000 6.2-12.0 fl Normal MPV 10.3 LAB L100.2100 47-70 % Normal NEUT% 68.6 LAB L100.2200 19-41 % Low LY% 15.9 LAB L100.2300 0-10 % Normal MONO% 9.3 LAB L100.2400 0-5 % Normal EO% 5.0 LAB L100.2500 0-1 % Normal BASO% 0.4 LAB L100.2550 0.0-0.9 % Normal IM GRAN % 0.800 Result Comment: IG% - Immature Granulocytes (promyelocytes, myelocytes and metamyelocytes) > 1% indicates that a LEFT SHIFT is Present. LAB L100.2620 2.0-7.7 X10 3/uL Normal Absolute Neut 5.1 LAB L100.2720 0.83-4.51 X10 3/ul Normal Absolute Lymph 1.18 Performed By: #### L100.0100 #### [facility] [address] [place], [place] [address]donato. [place], [place], [address] BASIC METABOLIC Collected: 07/25/2018 Status: F Source: MEARS PROFILE (BMP) 7:10 AM [facility] REPOSITORY TYPE CODE TESTS RESULT OUT OF RANGE REFERENCE UNITS LAB L501.0100 74-106 mg/dL High GLU 169 Result Comment: Fasting Glucose result greater than or equal to 126 mg/dL suggests DIABETES MELLITUS per A.D.A. criteria. Please note revised GLUCOSE reference range effective 2017. LAB L501.1000 7-18 mg/dL Normal BUN 11 LAB L501.1100 0.55-1.02 mg/dL Normal CREAT,SERUM 0.72 Result Comment: The validity of the calculated GFR AND GFRAA in patients over 70 years has not been determined. Clinical correlation is essential. LAB L501.1110 >60 mL/min Normal EST GFR 87 Result Comment: Non- GFR Calc LAB L501.1115 >60 mL/min Normal EST GFR - AA 106 Result Comment: GFR Calc LAB L501.1255 ml/min Normal Estimated CRCL 63.25 LAB L501.1300 10-20 RATIO Normal BUN/CRE 15.3 LAB L501.2200 8.5-10 mg/dL Normal .1 CA 8.6 LAB L501.5300 136-14 mmol/L Normal 5 NA 139 LAB L501.5600 3.5-5. mmol/L Normal 1 K 3.8 LAB L501.5900 98-107 mmol/L Normal CL 102 LAB L501.6100 21.0-3 mmol/L Normal 2.0 CO2 30.0 LAB L501.6200 5-15 Normal GAP 7 Performed By: #### L500.2500, L500.3400, L501.2450, L501.4010 #### [facility] [address] [facility]. [place], [place], [address] LIVER PROFILE Collected: 07/25/2018 Status: F Source: MEARS 7:10 AM [facility] REPOSITORY TYPE CODE TESTS RESULT OUT OF RANGE REFERENCE UNITS LAB L501.1500 6.4-8.2 g/dL Normal T PROT 7.5 LAB L501.1800 3.2-5.0 g/dL Low ALB 3.0 LAB L501.1950 2.2-4.2 g/dL High GLOB 4.5 LAB L501.4100 15-37 U/L Low AST 10 LAB L501.4305 45-117 U/L Normal ALK P 53 LAB L501.4405 13-56 U/L Normal ALT 14 LAB L501.4600 0.20-1.00 mg/dL Normal T BILI 1.00 LAB L501.4700 0.00-0.30 mg/dL Normal D BILI 0.29 Performed By: #### L500.2500, L500.3400, L501.2450, L501.4010 #### [facility] [address] [facility] [place], [address] LIPASE Collected: 07/25/2018 Status: F Source: MEARS 7:10 AM [facility] REPOSITORY TYPE CODE TESTS RESULT OUT OF REFERENCE UNITS RANGE LAB L501.2450 73-393 U/L Low LIPASE 51 Performed By: #### L500.2500, L500.3400, L501.2450, L501.4010 #### [facility] [address] [facility] [place], [address] TROPONIN-I Collected: 07/25/2018 Status: F Source: MEARS 7:10 AM [facility] REPOSITORY TYPE CODE TESTS RESULT OUT OF RANGE REFERENCE UNITS LAB L501.4010 <0.045 ng/mL Normal < 0.015 TROPONIN-I Result Comment: TROPONIN-I EXPECTED VALUES <0.045 Negative 0.045 - 0.590 Consistent with Cardiac Damage > OR = 0.600 Critical Value Not every elevated troponin is indicative of DC. These values should be used with clinical judgement in examining the patient's clinical picture for diagnosis. To establish a diagnosis of DC versus myocardial injury, there must be a demonstrated rise and/or fall in the troponin values, in addition to ischemic symptoms, EKG changes, new regional wall motion abnormality, and/or angiographical evidence. PLEASE NOTE: REFERENCE RANGES EDITED 18 Performed By: #### L500.2500, L500.3400, L501.2450, L501.4010 #### [facility] [address] [place], [address] CHEST 1 VIEW Observed: 07/25/2018 Status: F Source: MEARS (PORTABLE) 6:09 AM [facility] Imaging Services [address] [place] [address] Chest 1 View (Portable) MR#: [id number] Acct: [id number] Name: TAMIA PANDA Jennifer Rep #: [id number] : 1955 F 63 From: Mukul Murray MD PCP: Bhupendra Oliveira MD Status: PRE ER Study: Chest 1 View (Portable) Date of Exam: 07/25/18 Exam# [id number] Ordering Dr: Lizette Cuellar MD STUDY: X-RAY CHEST REASON FOR EXAM: Female, 63 years old. Dyspnea and cough TECHNIQUE: Single frontal view of the chest. COMPARISON: 07/22/2018 FINDINGS: Evolving bibasilar alveolar disease. Small left pleural effusion is suspected. Stable cardiomediastinal silhouette. Normal mediastinum and tracie. Normal visualized pulmonary arteries. Normal visualized aortic arch and descending thoracic aorta. Normal visualized thoracic spine. Normal visualized ribs, clavicles, and shoulders. There is no demonstrated abnormality of the visualized soft tissue structures of the upper abdomen. RAD/Chest 1 View (Portable) IMPRESSION: Evolving bibasilar alveolar disease. Small left pleural effusion is suspected. Electronically Signed: Mukul Murray MD at 6:41 EDT Tel , Service support , CC: Bhupendra Oliveira MD; Lizette Cuellar MD Pipe Recovery Specialist: Signed PROGRESS Observed: 07/24/2018 Status: COMPLETED Source: RUSSELL 11:26 AM [facility] REPOSITORY HNO ID: [id number] Author: Saad (Rn) Larry Service: (none) Author Type: Registered Nurse Type: Progress Notes Filed: 07/28/2018 8:55 AM Note Text: LABORATORY CHEMIST 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 N/A Patient identified by name and date : YES SUMMARY: -Patient discharged from [facility] ED on 07/22. -Follow up appointment on 07/29. -Medication review done. N/A -Presented with: SOB Acute Bronchitis CONCERNS: N/A NEW MEDICATIONS: Doxycycline Monohydrate 100 mg PO BID #20 cap MEDS HELD/DISCONTINUED: None BRIEF ED COURSE: Notes copied from Qiandao at [facility]: The patient is a 63 F with multiple complaints. Intermittent diarrhea for 4 days. It started last Friday then improved and then recurred today. Nonbloody. Trouble breathing for the past 3 days with a cough. She is having chest pain today. Had similar symptoms in the past with pneumonia. She has a history of COPD and uses home oxygen. Also history of atrial fibrillation, sleep apnea, acid reflux, diabetes, hypertension, hyperlipidemia, among others. She is a former smoker. She does take Eliquis, aspirin and other medications. Physical Examination: Afebrile and vital signs unremarkable. The patient is speaking in full sentences and does not appear short of breath. Lungs show diminished sounds throughout all pérez. Heart is irregularly irregular. Abdomen soft and nontender. Extremities nontender with no edema. Skin normal in color. Alert and oriented. Normal strength and sensation. Test Results: EKG shows atrial fibrillation at a rate of 75 with nonspecific T wave changes. Laboratory studies and chest x-ray are pending. On reevaluation, the patient is feeling better. She appears well. Her vital signs are normal. Good oxygenation. I believe she is appropriate for outpatient follow-up. The patient agrees. Will prescribe doxycycline for a COPD exacerbation. She did eat here and her repeat glucose was in the 80s. She is not having any symptoms of hypoglycemia. She is able to eat and drink at home and will continue to do so. Monitor her blood sugars. Treatment Plan: Doxycycline, healthy diet, monitor blood sugars Saad Silvestre RN TC to patient's cell phone, no answer, no voice mail Saad Silvestre RN July 24, 2018 11:24 AM CNPTOUTREACH Observed: 07/24/2018 Status: COMPLETED Source: RUSSELL 12:00 AM [facility] REPOSITORY Patient Outreach (FAMPWS) TAMIA PANDA ([id number]) 1955 F Date Time Provider Department 07/24/18 SAAD SILVESTRE (NINA) CIERA During your visit today, we recorded the following information about you: Saad Silvestre RN 07/28/2018 8:55 AM Signed LABORATORY CHEMIST 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 N/A Patient identified by name and date : YES SUMMARY: -Patient discharged from [facility] ED on 07/22. -Follow up appointment on 07/29. -Medication review done. N/A -Presented with: SOB Acute Bronchitis CONCERNS: N/A NEW MEDICATIONS: Doxycycline Monohydrate 100 mg PO BID #20 cap MEDS HELD/DISCONTINUED: None BRIEF ED COURSE: Notes copied from Qiandao at [facility]: The patient is a 63 F with multiple complaints. Intermittent diarrhea for 4 days. It started last Friday then improved and then recurred today. Nonbloody. Trouble breathing for the past 3 days with a cough. She is having chest pain today. Had similar symptoms in the past with pneumonia. She has a history of COPD and uses home oxygen. Also history of atrial fibrillation, sleep apnea, acid reflux, diabetes, hypertension, hyperlipidemia, among others. She is a former smoker. She does take Eliquis, aspirin and other medications. Physical Examination: Afebrile and vital signs unremarkable. The patient is speaking in full sentences and does not appear short of breath. Lungs show diminished sounds throughout all pérez. Heart is irregularly irregular. Abdomen soft and nontender. Extremities nontender with no edema. Skin normal in color. Alert and oriented. Normal strength and sensation. Test Results: EKG shows atrial fibrillation at a rate of 75 with nonspecific T wave changes. Laboratory studies and chest x-ray are pending. On reevaluation, the patient is feeling better. She appears well. Her vital signs are normal. Good oxygenation. I believe she is appropriate for outpatient follow-up. The patient agrees. Will prescribe doxycycline for a COPD exacerbation. She did eat here and her repeat glucose was in the 80s. She is not having any symptoms of hypoglycemia. She is able to eat and drink at home and will continue to do so. Monitor her blood sugars. Treatment Plan: Doxycycline, healthy diet, monitor blood sugars Saad Silvestre RN TC to patient's cell phone, no answer, no voice mail Saad Silvestre RN July 24, 2018 11:24 AM Allergies As of Date: 07/24/2018 Noted Allergy Reaction ADHESIVE TAPE (ROSINS) 04/04/2015 5 - Intolerance Comments: Surgical tape leaves rash Irritates skin badly and blisters along with medical tape CATS 04/10/2016 14 - Other: See Comments Comments: Congested and itchy, difficulty breathing DOGS 04/10/2016 14 - Other: See Comments Comments: Congestion, sneezing, and difficulty breathing ORPHENADRINE 04/10/2016 16 - Unknown CAPSAICIN 03/02/2018 9 - Itching CIPROFLOXACIN 12/11/2011 14 - Other: See Comments Comments: Red, hot, itchy rash KEFLEX (CEPHALEXIN) 07/10/2016 4 - Hives Comments: Negative skin testing and successful completion of an oral amoxicillin challenge was completed on 03/02/2018. Cephalexin shares an almost identical R1 side chain to amoxicillin; therefore, it is unlikely that she would be at elevated risk for developing an IgE-mediated reaction (allergic/anaphylactic). If she should need this medication in the future, I would recommend giving the first dose in a supervised medical setting. If no reaction after 30 minutes, proceed with regular dosing. 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 Ed Follow Up [3611] Prescriptions as of 07/24/2018 Sig: ASPIRIN 81 MG TABLET,DELAYED * TAKE 1 TABLET BY MOUTH EVERY * CLAUDIA-KYLE 8.6 MG TABLET TAKE 1 TABLET BY MOUTH TWICE * STOOL SOFTENER 100 MG CAPSULE TAKE 1 CAPSULE BY MOUTH DAILY PROMETHAZINE 25 MG TABLET Take 1 tablet by mouth every * INSULIN GLARGINE (U-100) 100 * Inject 36 units subcutaneousl* BUSPIRONE 5 MG TABLET Take 1.5 tablets by mouth twi* ALBUTEROL SULFATE HFA 90 MCG/* Inhale 2 Puffs as instructed * LYRICA 100 MG CAPSULE TAKE 1 CAPSULE BY MOUTH THREE* BIPAP Bilevel PAP 16/12 cmH2O with * OMEPRAZOLE 20 MG CAPSULE,MARIA EUGENIA* Take 1 capsule by mouth once * INSULIN LISPRO (U-200) 200 UN* Inject subcutaneously 14 unit* METOPROLOL TARTRATE 100 MG TA* TAKE 1 TABLET BY MOUTH TWICE * DULOXETINE 60 MG CAPSULE,MARIA EUGENIA* TAKE 1 CAPSULE BY MOUTH DAILY METFORMIN ER 500 MG TABLET,EX* TAKE 2 TABLETS BY MOUTH TWICE* PSEUDOEPHEDRINE-GUAIFENESIN E* Take 1 tablet by mouth twice * ESTRADIOL 0.01% (0.1 MG/GRAM)* Apply pea-sized amount to per* COMPOUNDED PRESCRIPTION Please fit for BiPAP mask. M/A-COMUCH ULTRA BLUE TEST STRIP USE DIRECTED TO CHECK BLOO* ONETOUCH DELICA LANCETS 30 GA* USE TO CHECK BLOOD SUGAR 4-5 * COMPOUNDED PRESCRIPTION OCD Titration for portable ox* CAPSAICIN 0.075 % TOPICAL CRE* Apply 1 application to affect* ULTICARE PEN NEEDLE 31 GAUGE * USE DIRECTED. TO INJECT IN* VITAMIN C 500 MG TABLET TAKE 1 TABLET BY MOUTH DAILY FERROUS GLUCONATE 324 MG (38 * TAKE 1 TABLET BY MOUTH DAILY * ISOSORBIDE MONONITRATE ER 60 * Take 1.5 tablets by mouth onc* ATORVASTATIN 40 MG TABLET TAKE 1 TABLET BY MOUTH DAILY DILTIAZEM SR 180 MG 24 HR CAP TAKE 1 CAPSULE BY MOUTH EVERY* LEVOTHYROXINE 100 MCG TABLET TAKE 1 TABLET BY MOUTH EVERY * ELIQUIS 2.5 MG TABLET TAKE 1 TABLET BY MOUTH TWICE * NITROGLYCERIN 0.4 MG SUBLINGU* DISSOLVE 1 TAB UNDER THE TONG* GLUCOSE 4 GRAM CHEWABLE TABLET Take 4 tablets by mouth as ne* OXYGEN (HOME THERAPY) Inhale 3 L/min as instructed * FLUTICASONE 50 MCG/ACTUATION * Use 2 Sprays in each nostril * FUROSEMIDE 40 MG TABLET Take 1 tablet by mouth twice * COMPOUNDED PRESCRIPTION Evaluation for diabetic shoes* INCONTINENCE PAD, LINER, DISP* 1 Device as needed (urinary i* COMPOUNDED PRESCRIPTION BLOOD PRESSURE CUFF FOR HOME * BLOOD-GLUCOSE METER KIT UAD to test blood sugar ALCOHOL SWABS UAD to clean skin before test* Problem List As Of Date 07/24/2018 Noted Resolved SUBJECTIVE TINNITUS [H93.19] INVALID FOR* PARESH treated with BiPAP [G47.33] INVALID FOR* Hyperlipidemia [E78.5] INVALID FOR* Coronary disease [I25.10] INVALID FOR* Diabetes mellitus, type II (HCC) [E11.9] INVALID FOR* Morbid obesity (HCC) [E66.01] Hypothyroidism [E03.9] Anxiety [F41.9] Sleep apnea [G47.30] 02/14/2017 Essential hypertension [I10] Coronary artery disease of [place] artery of stoney* AF (paroxysmal atrial fibrillation) ([facility]) [I48.* COPD (chronic obstructive pulmonary disease) (H* GERD without esophagitis [K21.9] Dysphagia [R13.10] Constipation [K59.00] DM type 2 (diabetes mellitus, type 2) ([facility]) [E1* 02/14/2017 Shortness of breath [R06.02] 02/14/2017 Arthritis [M19.90] More... CHF (congestive heart failure) ([facility]) [I50.9] BPPV (benign paroxysmal positional vertigo) [H8*INVALID FOR* RLS (restless legs syndrome) [G25.81] INVALID FOR* Iron deficiency concern: RE RLS [E61.1] INVALID FOR* Tubular adenoma [D36.9] INVALID FOR* Incontinence [R32] More... Gastroparesis [K31.84] INVALID FOR* Pre-op testing [Z01.818] INVALID FOR* More... Hypercapnia [R06.89] INVALID FOR* S/P coronary artery stent placement [Z95.5] INVALID FOR* Stage 3 chronic kidney disease [N18.3] INVALID FOR* Depression [F32.9] INVALID FOR* Obesity, Class II, BMI 35-39.9 [E66.9] INVALID FOR* Encounter Status:Closed by SAAD SILVESTRE on 07/28/18 DISCHARGE INSTRUCTION Observed: 07/23/2018 Status: F Source: [place]JAL 12:22 AM [facility] REPOSITORY [facility] Medical Records Department [address] [place] [address] Discharge Instruction 07/22/182011 MR#: [id number] Acct: [id number] Name: TAMIA PANDA Jennifer Rep #: [id number] : 1955 63 From: Bao Quintana MD PCP: Bhupendra Oliveira MD Status: DEP ER ED Disposition - Plan for ED Patient: Chief Complaint: Shortness of Breath Instructions: Hypoglycemia (Low Blood Sugar), Acute Bronchitis Prescriptions: Doxycycline Monohydrate 100 mg PO BID #20 cap Referrals: Bhupendra Oliveira MD [Primary Care Provider] - What to do if you have Problems For any increased pain, shortness of breath, bleeding, nausea or vomiting, chest pain, or any unexpected problems, contact your Primary Care Provider. Call [facility] ([phone]) or report to the closest Emergency Room. Call 911 if necessary. 07/23/18 0022 <Electronically signed by Bao Quintana MD> Date Bao Quintana MD Cosigner Signature (If Indicated): Date CC: Bhupendra Oliveira MD EMERGENCY DEPARTMENT Observed: 07/23/2018 Status: F Source: MEARS SUMMARY 12:22 AM [facility] Medical Records Department [address] [place] [address] Emergency Department Summary 07/22/18 1751 MR#: [id number] Acct: [id number] Name: TAMIA PANDA Rep #: [id number] : 1955 63 From: Bao Quintana MD PCP: Bhupendra Oliveira MD Status: DEP ER - ER Visit Summary Date of Service: 07/22/18 Chief Complaint: Sick History of Present Illness: The patient is a 63 F with multiple complaints. Patient has had intermittent diarrhea for 4 days. It started last Friday then improved and then recurred today. Nonbloody. She also had trouble breathing for the past 3 days with a cough. She is having chest pain today. She had similar symptoms in the past with pneumonia. She has a history of COPD and uses home oxygen. Also history of atrial fibrillation, sleep apnea, acid reflux, diabetes, hypertension, hyperlipidemia, among others. She is a former smoker. She does take Eliquis, aspirin and other medications. Physical Examination: Afebrile and vital signs unremarkable. The patient is speaking in full sentences and does not appear short of breath. Lungs show diminished sounds throughout all pérez. Heart is irregularly irregular. Abdomen soft and nontender. Extremities nontender with no edema. Skin normal in color. Alert and oriented. Normal strength and sensation. Test Results: EKG shows atrial fibrillation at a rate of 75 with nonspecific T wave changes. Laboratory studies and chest x-ray are pending. Emergency Department Course and Treatment: Patient was placed on a monitor and oxygen. She received a DuoNeb breathing treatment while awaiting results. Patient felt better after a DuoNeb treatment and a dose of fentanyl, 25 mcg. Workup was all fairly unremarkable. Her chest x-ray showed nonspecific interstitial thickening in the mid and lower lungs worse on the left. Hemoglobin 11.8. Glucose 52. Total bilirubin 1.3. Lipase 42. Patient was unable to provide urine and declined any further urinalysis testing. Troponin was normal. On reevaluation, the patient is feeling better. She appears well. Her vital signs are normal. Good oxygenation. I believe she is appropriate for outpatient follow-up. The patient agrees. Will prescribe doxycycline for a COPD exacerbation. She did eat here and her repeat glucose was in the 80s. She is not having any symptoms of hypoglycemia. She is able to eat and drink at home and will continue to do so. Monitor her blood sugars. Treatment Plan: Doxycycline, healthy diet, monitor blood sugars Disposition: Discharged Impression: 1. Acute bronchitis 2. Hypoglycemia This note was generated with Cure[employer] dictation software. It may contain incorrect words, spelling, and punctuation that were not noted in review of the chart prior to signing ED Disposition - Plan for ED Patient: Chief Complaint: Shortness of Breath Referrals: Bhupendra Oliveira MD [Primary Care Provider] - What to do if you have Problems For any increased pain, shortness of breath, bleeding, nausea or vomiting, chest pain, or any unexpected problems, contact your Primary Care Provider. Call [facility] ([phone]) or report to the closest Emergency Room. Call 911 if necessary. 07/23/18 0022 <Electronically signed by Bao Quintana MD> Date Bao Quintana MD Cosigner Signature (If Indicated): Date CC: Bhupendra Oliveira MD BEDSIDE GLUCOSE Collected: 07/22/2018 Status: F Source: KINJAL 8:24 PM [facility] REPOSITORY TYPE CODE TESTS RESULT OUT OF REFERENCE UNITS RANGE LAB L501.080 70-110 mg/dL High BEDSIDE GLU 118 Result Comment: MANAGEMENT OF PATIENT CARE PER NURSING PROTOCOL Performed By: #### L501.080 #### [facility] Point of Care [address] [place] [address] BEDSIDE GLUCOSE Collected: 07/22/2018 Status: F Source: KINJAL 7:15 PM [facility] REPOSITORY TYPE CODE TESTS RESULT OUT OF RANGE REFERENCE UNITS LAB L501.080 70-110 mg/dL Normal BEDSIDE GLU 83 Result Comment: MANAGEMENT OF PATIENT CARE PER NURSING PROTOCOL Performed By: #### L501.080 #### [facility] Point of Care [address] [place] [address] CBC W/DIFF, AUTOMATED Collected: 07/22/2018 Status: F Source: KINJAL 6:25 PM [facility] REPOSITORY Order Comment: REDRAW. PREVIOUS SPECIMEN REJECTED DUE TO CLOTTED SPECIMEN. 07/22/18 1729 Giovanna Nuñez. TYPE CODE TESTS RESULT OUT OF RANGE REFERENCE UNITS LAB L100.1000 4.4-11.0 K/mm3 Normal WBC 8.4 LAB L100.1200 4.2-5.4 M/mm3 Low RBC 4.05 LAB L100.1300 12.0-15.0 g/dl Low HGB 11.8 LAB L100.1400 37-47 % Normal HCT 37.7 LAB L100.1500 81-99 fL Normal MCV 93.1 LAB L100.1600 27.0-32.0 pg Normal MCH 29.1 LAB L100.1700 32-36 g/gl Low MCHC 31.3 LAB L100.1810 11.6-14.6 % High RDW CV 15.2 LAB L100.1820 35.1-43.9 fl High RDW SD 50.0 LAB L100.1900 150-450 K/mm3 Normal PLT 211 LAB L100.2000 6.2-12.0 fl Normal MPV 10.5 LAB L100.2100 47-70 % High NEUT% 73.5 LAB L100.2200 19-41 % Low LY% 13.8 LAB L100.2300 0-10 % Normal MONO% 7.4 LAB L100.2400 0-5 % Normal EO% 5.0 LAB L100.2500 0-1 % Normal BASO% 0.1 LAB L100.2550 0.0-0.9 % Normal IM GRAN % 0.200 Result Comment: IG% - Immature Granulocytes (promyelocytes, myelocytes and metamyelocytes) > 1% indicates that a LEFT SHIFT is Present. LAB L100.2620 2.0-7.7 X10 3/uL Normal Absolute Neut 6.2 LAB L100.2720 0.83-4.51 X10 3/ul Normal Absolute Lymph 1.16 Performed By: #### L100.0100 #### [facility] [address] [place], [place], [address] COMPREHENSIVE METABOLIC Collected: 07/22/2018 Status: F Source: [facility] 5:05 PM [facility] REPOSITORY Order Comment: 'TROP' Serial specimen #1, #2, #3, or #4: 1 TYPE CODE TESTS RESULT OUT OF RANGE REFERENCE UNITS LAB L501.0100 74-106 mg/dL Low GLU 52 Result Comment: Please note revised GLUCOSE reference range effective 2017. LAB L501.1000 7-18 mg/dL Normal BUN 9 LAB L501.1100 0.55-1.02 mg/dL Normal CREAT,SERUM 0.60 Result Comment: The validity of the calculated GFR AND GFRAA in patients over 70 years has not been determined. Clinical correlation is essential. LAB L501.1110 >60 mL/min Normal EST GFR 108 Result Comment: Non- GFR Calc LAB L501.1115 >60 mL/min Normal EST GFR - AA 131 Result Comment: GFR Calc LAB L501.1255 ml/min Normal Estimated CRCL 75.90 LAB L501.1300 10-20 RATIO Normal BUN/CRE 15.1 LAB L501.1500 6.4-8. g/dL Normal 2 T PROT 7.1 LAB L501.1800 3.2-5. g/dL Low 0 ALB 2.8 LAB L501.1950 2.2-4. g/dL High 2 GLOB 4.3 LAB L501.2000 0.9-2. RATIO Low 4 A/G 0.7 LAB L501.2200 8.5-10 mg/dL Normal .1 CA 8.7 LAB L501.4100 15-37 U/L Normal AST 15 Result Comment: Slight Hemolysis, Result may be falsely increased. LAB L501.4305 45-117 U/L Normal ALK P 51 LAB L501.4405 13-56 U/L Normal ALT 13 LAB L501.4600 0.20-1.00 mg/dL High T BILI 1.30 LAB L501.5300 136-145 mmol/L Normal NA 144 LAB L501.5600 3.5-5.1 mmol/L Normal K 4.1 Result Comment: Slight Hemolysis, Result may be falsely increased. LAB L501.5900 98-107 mmol/L Normal CL 107 LAB L501.6100 21.0-32.0 mmol/L Normal CO2 30.0 LAB L501.6200 5-15 Normal 7 GAP Performed By: #### L500.4050, L501.2450, L501.4010 #### [facility] [address] [place], [place], [id number] LIPASE Collected: 07/22/2018 Status: F Source: [place]ARS 5:05 PM [facility] REPOSITORY Order Comment: 'TROP' Serial specimen #1, #2, #3, or #4: 1 TYPE CODE TESTS RESULT OUT OF REFERENCE UNITS RANGE LAB L501.2450 73-393 U/L Low LIPASE 42 Performed By: #### L500.4050, L501.2450, L501.4010 #### [facility] [address] [place], [place], [address] TROPONIN-I Collected: 07/22/2018 Status: F Source: MEARS 5:05 PM [facility] REPOSITORY Order Comment: 'TROP' Serial specimen #1, #2, #3, or #4: 1 TYPE CODE TESTS RESULT OUT OF RANGE REFERENCE UNITS LAB L501.4010 <0.045 ng/mL Normal < 0.015 TROPONIN-I Result Comment: TROPONIN-I EXPECTED VALUES <0.045 Negative 0.045 - 0.590 Consistent with Cardiac Damage > OR = 0.600 Critical Value Not every elevated troponin is indicative of DC. These values should be used with clinical judgement in examining the patient's clinical picture for diagnosis. To establish a diagnosis of DC versus myocardial injury, there must be a demonstrated rise and/or fall in the troponin values, in addition to ischemic symptoms, EKG changes, new regional wall motion abnormality, and/or angiographical evidence. PLEASE NOTE: REFERENCE RANGES EDITED 18 Performed By: #### L500.4050, L501.2450, L501.4010 #### [facility] [address] [facility] [place], [address] CHEST 1 VIEW Observed: 07/22/2018 Status: F Source: MEARS (PORTABLE) 5:02 PM [facility] REPOSITORY [facility] Imaging Services [address] [place] [id number] Chest 1 View (Portable) MR#: [id number] Acct: [id number] Name: TAMIA PANDA Rep #: [id number] : 1955 F 63 From: John Chavez MD PCP: Bhupendra Oliveira MD Status: REG ER Study: Chest 1 View (Portable) Date of Exam: 07/22/18 Exam# [id number] Ordering Dr: Bao Quintana MD STUDY: X-RAY CHEST REASON FOR EXAM: Female, 63 years old. Short of breath TECHNIQUE: AP portable COMPARISON: May 17, 2018 FINDINGS: Interstitial thickening which appears most pronounced in the mid and lower lung zones greater on the left. Possibility of inflammatory changes not excluded. There is no demonstrated pleural abnormality. The heart appears mildly enlarged. Normal mediastinum and tracie. Normal visualized pulmonary arteries. Normal visualized aortic arch and descending thoracic aorta. Dorsal spine demonstrates spondylosis. Normal visualized ribs, clavicles, and shoulders. There is no demonstrated abnormality of the visualized soft tissue structures of the upper abdomen. RAD/Chest 1 View (Portable) IMPRESSION: Nonspecific interstitial thickening most pronounced in the mid and lower lung zones greater on the left Electronically Signed: Jonh Chavez MD at 18:28 EDT , Service support , CC: Bhupendra Oliveira MD; Bao Quintana MD Pipe Recovery Specialist: Signed PROGRESS Observed: 07/22/2018 Status: COMPLETED Source: RUSSELL 4:21 PM [facility] REPOSITORY HNO ID: [id number] Author: Nanda Rodriguez) Brian Service: (none) Author Type: Physician Type: Progress Notes Filed: 07/22/2018 4:21 PM Note Text: Reviewed and agree. 40 minute TCM on discharge. PROGRESS Observed: 07/22/2018 Status: COMPLETED Source: RUSSELL 3:23 PM [facility] REPOSITORY HNO ID: [id number] Author: Saad (Nnia) Larry Service: (none) Author Type: Registered Nurse Type: Progress Notes Filed: 07/22/2018 3:27 PM Note Text: PRIMARY CARE COORDINATION FOLLOW-UP NOTE Provider Action/FYI Instructed patient to go to ER for increasing SOB and orthopnea x 4 days Noted chest pain and heaviness last night Patient identified by name and date of . YES Spoke to patient Concerns: Has increased SOB x 4 days and chest hurt last night and chest felt heavy. States pain was relieved with NTG x 1 SOB increases when pt lies down. States nebulizer helped a little last night but she can hear gurgling in her chest since yesterday Cleaning Supervisor plan for next outreach: Will follow up in 2 days Signature Saad Silvestre RN July 22, 2018 LMTOUTRROQUE Observed: 07/22/2018 Status: COMPLETED Source: RUSSELL 12:00 AM [facility] REPOSITORY Patient Outreach (FAMPWS) TAMIA PANDA ([id number]) 1955 F Date Time Provider Department 07/22/18 SAAD SILVESTRE (RN) CIERA During your visit today, we recorded the following information about you: Saad Silvestre RN 07/22/2018 3:27 PM Signed PRIMARY CARE COORDINATION FOLLOW-UP NOTE Provider Action/FYI Instructed patient to go to ER for increasing SOB and orthopnea x 4 days Noted chest pain and heaviness last night Patient identified by name and date of . YES Spoke to patient Concerns: Has increased SOB x 4 days and chest hurt last night and chest felt heavy. States pain was relieved with NTG x 1 SOB increases when pt lies down. States nebulizer helped a little last night but she can hear gurgling in her chest since yesterday Cleaning Supervisor plan for next outreach: Will follow up in 2 days Signature Saad Silvestre RN July 22, 2018 Nanda Oliveira MD 07/22/2018 4:21 PM Signed Reviewed and agree. 40 minute TCM on discharge. Allergies As of Date: 07/22/2018 Noted Allergy Reaction ADHESIVE TAPE (ROSINS) 04/04/2015 5 - Intolerance Comments: Surgical tape leaves rash Irritates skin badly and blisters along with medical tape CATS 04/10/2016 14 - Other: See Comments Comments: Congested and itchy, difficulty breathing DOGS 04/10/2016 14 - Other: See Comments Comments: Congestion, sneezing, and difficulty breathing ORPHENADRINE 04/10/2016 16 - Unknown CAPSAICIN 03/02/2018 9 - Itching CIPROFLOXACIN 12/11/2011 14 - Other: See Comments Comments: Red, hot, itchy rash KEFLEX (CEPHALEXIN) 07/10/2016 4 - Hives Comments: Negative skin testing and successful completion of an oral amoxicillin challenge was completed on 03/02/2018. Cephalexin shares an almost identical R1 side chain to amoxicillin; therefore, it is unlikely that she would be at elevated risk for developing an IgE-mediated reaction (allergic/anaphylactic). If she should need this medication in the future, I would recommend giving the first dose in a supervised medical setting. If no reaction after 30 minutes, proceed with regular dosing. 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 Chronic Care [3612] Problem List As Of Date 07/22/2018 Noted Resolved SUBJECTIVE TINNITUS [H93.19] INVALID FOR* PARESH treated with BiPAP [G47.33] INVALID FOR* Hyperlipidemia [E78.5] INVALID FOR* Coronary disease [I25.10] INVALID FOR* Diabetes mellitus, type II (HCC) [E11.9] INVALID FOR* Morbid obesity ([facility]) [E66.01] Hypothyroidism [E03.9] Anxiety [F41.9] Sleep apnea [G47.30] 02/14/2017 Essential hypertension [I10] Coronary artery disease of port lions artery of stoney* AF (paroxysmal atrial fibrillation) ([facility]) [I48.* COPD (chronic obstructive pulmonary disease) (H* GERD without esophagitis [K21.9] Dysphagia [R13.10] Constipation [K59.00] DM type 2 (diabetes mellitus, type 2) ([facility]) [E1* 02/14/2017 Shortness of breath [R06.02] 02/14/2017 Arthritis [M19.90] More... CHF (congestive heart failure) ([facility]) [I50.9] BPPV (benign paroxysmal positional vertigo) [H8*INVALID FOR* RLS (restless legs syndrome) [G25.81] INVALID FOR* Iron deficiency concern: RE RLS [E61.1] INVALID FOR* Tubular adenoma [D36.9] INVALID FOR* Incontinence [R32] More... Gastroparesis [K31.84] INVALID FOR* Pre-op testing [Z01.818] INVALID FOR* More... Hypercapnia [R06.89] INVALID FOR* S/P coronary artery stent placement [Z95.5] INVALID FOR* Stage 3 chronic kidney disease [N18.3] INVALID FOR* Depression [F32.9] INVALID FOR* Obesity, Class II, BMI 35-39.9 [E66.9] INVALID FOR* Encounter Status:Closed by SAAD SILVESTRE on 07/22/18 PROGRESS Observed: 07/03/2018 Status: COMPLETED Source: [place]US[place]LL 4:04 PM [facility] REPOSITORY HNO ID: [id number] Author: Saad Allen) Larry Service: (none) Author Type: Registered Nurse Type: Progress Notes Filed: 07/08/2018 9:10 AM Note Text: PRIMARY CARE COORDINATION FOLLOW-UP NOTE Provider Lin/WILLEM LOZANO received pt's blood sugars during her phone call and sent to PCP Patient identified by name and date of . YES Spoke to sister, Krystle, asked her to have pt call back with blood sugars. Cleaning Supervisor plan for next outreach: Will follow up one month Signature Saad Silvestre RN July 03, 2018 CNPTOUTREACH Observed: 07/03/2018 Status: COMPLETED Source: RUSSELL 12:00 AM [facility] REPOSITORY Patient Outreach (FAMPWS) TAMIA PANDA ([id number]) 1955 F Date Time Provider Department 07/03/18 SAAD SILVESTRE) FAMPWS During your visit today, we recorded the following information about you: Saad Silvestre RN 07/08/2018 9:10 AM Signed PRIMARY CARE COORDINATION FOLLOW-UP NOTE Provider Lin/WILLEM LOZANO received pt's blood sugars during her phone call and sent to PCP Patient identified by name and date of . YES Spoke to sister, Krystle, asked her to have pt call back with blood sugars. Cleaning Supervisor plan for next outreach: Will follow up one month Signature Saad Silvestre RN July 03, 2018 Allergies As of Date: 07/03/2018 Noted Allergy Reaction ADHESIVE TAPE (ROSINS) 04/04/2015 5 - Intolerance Comments: Surgical tape leaves rash Irritates skin badly and blisters along with medical tape CATS 04/10/2016 14 - Other: See Comments Comments: Congested and itchy, difficulty breathing DOGS 04/10/2016 14 - Other: See Comments Comments: Congestion, sneezing, and difficulty breathing ORPHENADRINE 04/10/2016 16 - Unknown CAPSAICIN 03/02/2018 9 - Itching CIPROFLOXACIN 12/11/2011 14 - Other: See Comments Comments: Red, hot, itchy rash KEFLEX (CEPHALEXIN) 07/10/2016 4 - Hives Comments: Negative skin testing and successful completion of an oral amoxicillin challenge was completed on 03/02/2018. Cephalexin shares an almost identical R1 side chain to amoxicillin; therefore, it is unlikely that she would be at elevated risk for developing an IgE-mediated reaction (allergic/anaphylactic). If she should need this medication in the future, I would recommend giving the first dose in a supervised medical setting. If no reaction after 30 minutes, proceed with regular dosing. 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 Chronic Care [1832] Prescriptions as of 07/03/2018 Sig: ASPIRIN 81 MG TABLET,DELAYED * TAKE 1 TABLET BY MOUTH EVERY * CLAUDIA-KYLE 8.6 MG TABLET TAKE 1 TABLET BY MOUTH TWICE * STOOL SOFTENER 100 MG CAPSULE TAKE 1 CAPSULE BY MOUTH DAILY PROMETHAZINE 25 MG TABLET Take 1 tablet by mouth every * INSULIN GLARGINE (U-100) 100 * Inject 36 units subcutaneousl* BUSPIRONE 5 MG TABLET Take 1.5 tablets by mouth twi* ALBUTEROL SULFATE HFA 90 MCG/* Inhale 2 Puffs as instructed * LYRICA 100 MG CAPSULE TAKE 1 CAPSULE BY MOUTH THREE* BIPAP Bilevel PAP 16/12 cmH2O with * OMEPRAZOLE 20 MG CAPSULE,MARIA EUGENIA* Take 1 capsule by mouth once * INSULIN LISPRO (U-200) 200 UN* Inject subcutaneously 14 unit* METOPROLOL TARTRATE 100 MG TA* TAKE 1 TABLET BY MOUTH TWICE * DULOXETINE 60 MG CAPSULE,MARIA EUGENIA* TAKE 1 CAPSULE BY MOUTH DAILY METFORMIN ER 500 MG TABLET,EX* TAKE 2 TABLETS BY MOUTH TWICE* PSEUDOEPHEDRINE-GUAIFENESIN E* Take 1 tablet by mouth twice * ESTRADIOL 0.01% (0.1 MG/GRAM)* Apply pea-sized amount to per* COMPOUNDED PRESCRIPTION Please fit for BiPAP mask. ONETOUCH ULTRA BLUE TEST STRIP USE DIRECTED TO CHECK BLOO* ONETOUCH DELICA LANCETS 30 GA* USE TO CHECK BLOOD SUGAR 4-5 * COMPOUNDED PRESCRIPTION OCD Titration for portable ox* CAPSAICIN 0.075 % TOPICAL CRE* Apply 1 application to affect* ULTICARE PEN NEEDLE 31 GAUGE * USE DIRECTED. TO INJECT IN* VITAMIN C 500 MG TABLET TAKE 1 TABLET BY MOUTH DAILY FERROUS GLUCONATE 324 MG (38 * TAKE 1 TABLET BY MOUTH DAILY * ISOSORBIDE MONONITRATE ER 60 * Take 1.5 tablets by mouth onc* ATORVASTATIN 40 MG TABLET TAKE 1 TABLET BY MOUTH DAILY DILTIAZEM SR 180 MG 24 HR CAP TAKE 1 CAPSULE BY MOUTH EVERY* LEVOTHYROXINE 100 MCG TABLET TAKE 1 TABLET BY MOUTH EVERY * ELIQUIS 2.5 MG TABLET TAKE 1 TABLET BY MOUTH TWICE * NITROGLYCERIN 0.4 MG SUBLINGU* DISSOLVE 1 TAB UNDER THE TONG* GLUCOSE 4 GRAM CHEWABLE TABLET Take 4 tablets by mouth as ne* OXYGEN (HOME THERAPY) Inhale 3 L/min as instructed * FLUTICASONE 50 MCG/ACTUATION * Use 2 Sprays in each nostril * FUROSEMIDE 40 MG TABLET Take 1 tablet by mouth twice * COMPOUNDED PRESCRIPTION Evaluation for diabetic shoes* INCONTINENCE PAD, LINER, DISP* 1 Device as needed (urinary i* COMPOUNDED PRESCRIPTION BLOOD PRESSURE CUFF FOR HOME * BLOOD-GLUCOSE METER KIT UAD to test blood sugar ALCOHOL SWABS UAD to clean skin before test* Problem List As Of Date 07/03/2018 Noted Resolved SUBJECTIVE TINNITUS [H93.19] INVALID FOR* PARESH treated with BiPAP [G47.33] INVALID FOR* Hyperlipidemia [E78.5] INVALID FOR* Coronary disease [I25.10] INVALID FOR* Diabetes mellitus, type II (HCC) [E11.9] INVALID FOR* Morbid obesity (HCC) [E66.01] Hypothyroidism [E03.9] Anxiety [F41.9] Sleep apnea [G47.30] 02/14/2017 Essential hypertension [I10] Coronary artery disease of port lions artery of stoney* AF (paroxysmal atrial fibrillation) ([facility]) [I48.* COPD (chronic obstructive pulmonary disease) (H* GERD without esophagitis [K21.9] Dysphagia [R13.10] Constipation [K59.00] DM type 2 (diabetes mellitus, type 2) ([facility]) [E1* 02/14/2017 Shortness of breath [R06.02] 02/14/2017 Arthritis [M19.90] More... CHF (congestive heart failure) ([facility]) [I50.9] BPPV (benign paroxysmal positional vertigo) [H8*INVALID FOR* RLS (restless legs syndrome) [G25.81] INVALID FOR* Iron deficiency concern: RE RLS [E61.1] INVALID FOR* Tubular adenoma [D36.9] INVALID FOR* Incontinence [R32] More... Gastroparesis [K31.84] INVALID FOR* Pre-op testing [Z01.818] INVALID FOR* More... Hypercapnia [R06.89] INVALID FOR* S/P coronary artery stent placement [Z95.5] INVALID FOR* Stage 3 chronic kidney disease [N18.3] INVALID FOR* Depression [F32.9] INVALID FOR* Obesity, Class II, BMI 35-39.9 [E66.9] INVALID FOR* Encounter Status:Closed by SAAD SILVESTRE on 07/08/18 PROGRESS Observed: 06/25/2018 Status: COMPLETED Source: RUSSELL 3:42 PM [facility] REPOSITORY HNO ID: [id number] Author: Nanda Oliveira Service: (none) Author Type: Physician Type: Progress Notes Filed: 06/25/2018 3:43 PM Note Text: Reviewed. Agree with eating regular meals. Skip meal time insulin if she skips a meal. No change to insulins at this time. PROGRESS Observed: 06/25/2018 Status: COMPLETED Source: RUSSELL 10:53 AM [facility] REPOSITORY HNO ID: [id number] Author: Saad Allen) Larry Service: (none) Author Type: Registered Nurse Type: Progress Notes Filed: 06/25/2018 3:05 PM Note Text: PRIMARY CARE COORDINATION FOLLOW-UP NOTE Provider Action/FYI Pt not following diet well since living with sister. Skipped meal yesterday and BS dropped to 46 Discussed eating proper meals at regular times to prevent BS highs and lows PCC will call pt in one week to check diet and BS Pt has not found an apt/house yet (2 bedroom, 1 level, accepts [employer], $600-650) [employer] and [employer] is suspended until she is in her own apt. Patient identified by name and date of . YES Spoke to patient Spoke to sister, Purvi, asked pt to call PCC back when she wakes up. Saad Silvestre RN June 25, 2018 10:53 AM Summary: Pt skipped breakfast yesterday and went out. BS dropped to 46, grabbed a Snowball then ate a Big Mac and fries. Took BS in afternoon and it was 75 so she drank a peanut butter milkshake. BS at bedtime was 247 Tamiakarson Panda is a 63 year old female who reports glucose readings as noted. DATE 06/24 06/23 06/22 06/21 06/20 06/19 06/18 Fasting 214 172 179 166 144 166 134 Afternoon 46/75 Evening 247 181 91 202 Any low blood sugars during this period of reporting Yes Patient's diabetes medications as follows: metFORMIN ER (GLUCOPHAGE XR) 500 mg TAKE 2 TABLETS BY MOUTH TWICE A DAY insulin lispro (HUMALOG KWIKPEN INSULIN) 200 unit/mL Inject subcutaneously 14 units with breakfast, 22 units with lunch, and 24 units with dinner insulin glargine (LANTUS SOLOSTAR U-100 INSULIN) 100 unit/mL IInject 36 units subcutaneously twice daily Cleaning Supervisor plan for next outreach: Will follow up one weeks Signature Saad Silvestre RN June 25, 2018 LMTOUTREACH Observed: 06/25/2018 Status: COMPLETED Source: RUSSELL 12:00 AM [facility] REPOSITORY Patient Outreach (FAMPWS) TAMIA PANDA ([id number]) 1955 F Date Time Provider Department 06/25/18 SAAD SILVESTRE (NINA) KENDRICKWS During your visit today, we recorded the following information about you: Saad Silvestre RN 06/25/2018 3:05 PM Signed PRIMARY CARE COORDINATION FOLLOW-UP NOTE Provider Action/FYI Pt not following diet well since living with sister. Skipped meal yesterday and BS dropped to 46 Discussed eating proper meals at regular times to prevent BS highs and lows PCC will call pt in one week to check diet and BS Pt has not found an apt/house yet (2 bedroom, 1 level, accepts [employer], $600-650) MOW and [employer] is suspended until she is in her own apt. Patient identified by name and date of . YES Spoke to patient Spoke to sister, Purvi, asked pt to call PCC back when she wakes up. Saad Silvestre RN June 25, 2018 10:53 AM Summary: Pt skipped breakfast yesterday and went out. BS dropped to 46, grabbed a Snowball then ate a Big Mac and fries. Took BS in afternoon and it was 75 so she drank a peanut butter milkshake. BS at bedtime was 247 Tamia Panda is a 63 year old female who reports glucose readings as noted. DATE 06/24 06/23 06/22 06/21 06/20 06/19 06/18 Fasting 214 172 179 166 144 166 134 Afternoon 46/75 Evening 247 181 91 202 Any low blood sugars during this period of reporting Yes Patient's diabetes medications as follows: metFORMIN ER (GLUCOPHAGE XR) 500 mg TAKE 2 TABLETS BY MOUTH TWICE A DAY insulin lispro (HUMALOG KWIKPEN INSULIN) 200 unit/mL Inject subcutaneously 14 units with breakfast, 22 units with lunch, and 24 units with dinner insulin glargine (LANTUS SOLOSTAR U-100 INSULIN) 100 unit/mL IInject 36 units subcutaneously twice daily Cleaning Supervisor plan for next outreach: Will follow up one weeks Signature Saad Silvestre RN June 25, 2018 Nanda Oliveira MD 06/25/2018 3:43 PM Signed Reviewed. Agree with eating regular meals. Skip meal time insulin if she skips a meal. No change to insulins at this time. Allergies As of Date: 06/25/2018 Noted Allergy Reaction ADHESIVE TAPE (ROSINS) 04/04/2015 5 - Intolerance Comments: Surgical tape leaves rash Irritates skin badly and blisters along with medical tape CATS 04/10/2016 14 - Other: See Comments Comments: Congested and itchy, difficulty breathing DOGS 04/10/2016 14 - Other: See Comments Comments: Congestion, sneezing, and difficulty breathing ORPHENADRINE 04/10/2016 16 - Unknown CAPSAICIN 03/02/2018 9 - Itching CIPROFLOXACIN 12/11/2011 14 - Other: See Comments Comments: Red, hot, itchy rash KEFLEX (CEPHALEXIN) 07/10/2016 4 - Hives Comments: Negative skin testing and successful completion of an oral amoxicillin challenge was completed on 03/02/2018. Cephalexin shares an almost identical R1 side chain to amoxicillin; therefore, it is unlikely that she would be at elevated risk for developing an IgE-mediated reaction (allergic/anaphylactic). If she should need this medication in the future, I would recommend giving the first dose in a supervised medical setting. If no reaction after 30 minutes, proceed with regular dosing. 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 [7550] Prescriptions as of 06/25/2018 Sig: ASPIRIN 81 MG TABLET,DELAYED * TAKE 1 TABLET BY MOUTH EVERY * CLAUDIA-KYLE 8.6 MG TABLET TAKE 1 TABLET BY MOUTH TWICE * STOOL SOFTENER 100 MG CAPSULE TAKE 1 CAPSULE BY MOUTH DAILY PROMETHAZINE 25 MG TABLET Take 1 tablet by mouth every * INSULIN GLARGINE (U-100) 100 * Inject 36 units subcutaneousl* BUSPIRONE 5 MG TABLET Take 1.5 tablets by mouth twi* ALBUTEROL SULFATE HFA 90 MCG/* Inhale 2 Puffs as instructed * LYRICA 100 MG CAPSULE TAKE 1 CAPSULE BY MOUTH THREE* BIPAP Bilevel PAP 16/12 cmH2O with * OMEPRAZOLE 20 MG CAPSULE,MARIA EUGENIA* Take 1 capsule by mouth once * INSULIN LISPRO (U-200) 200 UN* Inject subcutaneously 14 unit* METOPROLOL TARTRATE 100 MG TA* TAKE 1 TABLET BY MOUTH TWICE * DULOXETINE 60 MG CAPSULE,MARIA EUGENIA* TAKE 1 CAPSULE BY MOUTH DAILY METFORMIN ER 500 MG TABLET,EX* TAKE 2 TABLETS BY MOUTH TWICE* PSEUDOEPHEDRINE-GUAIFENESIN E* Take 1 tablet by mouth twice * ESTRADIOL 0.01% (0.1 MG/GRAM)* Apply pea-sized amount to per* COMPOUNDED PRESCRIPTION Please fit for BiPAP mask. ONETOUCH ULTRA BLUE TEST STRIP USE DIRECTED TO CHECK BLOO* ONETOUCH DELICA LANCETS 30 GA* USE TO CHECK BLOOD SUGAR 4-5 * COMPOUNDED PRESCRIPTION OCD Titration for portable ox* CAPSAICIN 0.075 % TOPICAL CRE* Apply 1 application to affect* ULTICARE PEN NEEDLE 31 GAUGE * USE DIRECTED. TO INJECT IN* VITAMIN C 500 MG TABLET TAKE 1 TABLET BY MOUTH DAILY FERROUS GLUCONATE 324 MG (38 * TAKE 1 TABLET BY MOUTH DAILY * ISOSORBIDE MONONITRATE ER 60 * Take 1.5 tablets by mouth onc* ATORVASTATIN 40 MG TABLET TAKE 1 TABLET BY MOUTH DAILY DILTIAZEM SR 180 MG 24 HR CAP TAKE 1 CAPSULE BY MOUTH EVERY* LEVOTHYROXINE 100 MCG TABLET TAKE 1 TABLET BY MOUTH EVERY * ELIQUIS 2.5 MG TABLET TAKE 1 TABLET BY MOUTH TWICE * NITROGLYCERIN 0.4 MG SUBLINGU* DISSOLVE 1 TAB UNDER THE TONG* GLUCOSE 4 GRAM CHEWABLE TABLET Take 4 tablets by mouth as ne* OXYGEN (HOME THERAPY) Inhale 3 L/min as instructed * FLUTICASONE 50 MCG/ACTUATION * Use 2 Sprays in each nostril * FUROSEMIDE 40 MG TABLET Take 1 tablet by mouth twice * COMPOUNDED PRESCRIPTION Evaluation for diabetic shoes* INCONTINENCE PAD, LINER, DISP* 1 Device as needed (urinary i* COMPOUNDED PRESCRIPTION BLOOD PRESSURE CUFF FOR HOME * BLOOD-GLUCOSE METER KIT UAD to test blood sugar ALCOHOL SWABS UAD to clean skin before test* Problem List As Of Date 06/25/2018 Noted Resolved SUBJECTIVE TINNITUS [H93.19] INVALID FOR* PARESH treated with BiPAP [G47.33] INVALID FOR* Hyperlipidemia [E78.5] INVALID FOR* Coronary disease [I25.10] INVALID FOR* Diabetes mellitus, type II (HCC) [E11.9] INVALID FOR* Morbid obesity (HCC) [E66.01] Hypothyroidism [E03.9] Anxiety [F41.9] Sleep apnea [G47.30] 02/14/2017 Essential hypertension [I10] Coronary artery disease of port lions artery of stoney* AF (paroxysmal atrial fibrillation) ([facility]) [I48.* COPD (chronic obstructive pulmonary disease) (H* GERD without esophagitis [K21.9] Dysphagia [R13.10] Constipation [K59.00] DM type 2 (diabetes mellitus, type 2) ([facility]) [E1* 02/14/2017 Shortness of breath [R06.02] 02/14/2017 Arthritis [M19.90] More... CHF (congestive heart failure) ([facility]) [I50.9] BPPV (benign paroxysmal positional vertigo) [H8*INVALID FOR* RLS (restless legs syndrome) [G25.81] INVALID FOR* Iron deficiency concern: RE RLS [E61.1] INVALID FOR* Tubular adenoma [D36.9] INVALID FOR* Incontinence [R32] More... Gastroparesis [K31.84] INVALID FOR* Pre-op testing [Z01.818] INVALID FOR* More... Hypercapnia [R06.89] INVALID FOR* S/P coronary artery stent placement [Z95.5] INVALID FOR* Stage 3 chronic kidney disease [N18.3] INVALID FOR* Depression [F32.9] INVALID FOR* Obesity, Class II, BMI 35-39.9 [E66.9] INVALID FOR* Encounter Status:Closed by SAAD SILVESTRE on 06/25/18 MARICARMEN Observed: 06/12/2018 Status: COMPLETED Source: GERMAN 12:00 AM [facility] REPOSITORY Telephone ([facility]) TAMIA PANDA ([id number]) 1955 F Date Time Provider Department 06/12/18 [facility] During your visit today, we recorded the following information about you: [place] [facility] [place] 12:11 PM Addendum CMN RECEIVED VIA FAX AND ROUTED TO [facility]IA [employer] 06/12/18 [place] [facility] [place] [facility] SENDING CMN: KURT QUINTEROS COMPLETED CMN AND PLACED IN PROVIDER MAILBOX FOR SIGNATURE: 06/12/18 Magali Fields SIGNED AND DATED CMN, FAXED TO DME AND CONFIRMATION PAGE RECEIVED: 06/15/2018, Daksha Gonzales Allergies As of Date: 06/12/2018 Noted Allergy Reaction ADHESIVE TAPE (ROSINS) 04/04/2015 5 - Intolerance Comments: Surgical tape leaves rash Irritates skin badly and blisters along with medical tape CATS 04/10/2016 14 - Other: See Comments Comments: Congested and itchy, difficulty breathing DOGS 04/10/2016 14 - Other: See Comments Comments: Congestion, sneezing, and difficulty breathing ORPHENADRINE 04/10/2016 16 - Unknown CAPSAICIN 03/02/2018 9 - Itching CIPROFLOXACIN 12/11/2011 14 - Other: See Comments Comments: Red, hot, itchy rash KEFLEX (CEPHALEXIN) 07/10/2016 4 - Hives Comments: Negative skin testing and successful completion of an oral amoxicillin challenge was completed on 03/02/2018. Cephalexin shares an almost identical R1 side chain to amoxicillin; therefore, it is unlikely that she would be at elevated risk for developing an IgE-mediated reaction (allergic/anaphylactic). If she should need this medication in the future, I would recommend giving the first dose in a supervised medical setting. If no reaction after 30 minutes, proceed with regular dosing. NIACIN 04/04/2015 16 - Unknown Comments: Pt states its niacin its niaspan REGLAN (METOCLOPRAMIDE HCL) 03/04/2017 14 - Other: See Comments Comments: Unable to sleep XANTHINES 10/18/2004 16 - Unknown ZOFRAN (ONDANSETRON HCL (PF)) 02/03/2018 9 - Itching Date Reviewed: 06/03/2018 Reviewed by: Clayton Serna Ma - Fully Assessed Reason for Visit: CMN [Other] Prescriptions as of 06/12/2018 Sig: ASPIRIN 81 MG TABLET,DELAYED * TAKE 1 TABLET BY MOUTH EVERY * CLAUDIA-KYLE 8.6 MG TABLET TAKE 1 TABLET BY MOUTH TWICE * STOOL SOFTENER 100 MG CAPSULE TAKE 1 CAPSULE BY MOUTH DAILY PROMETHAZINE 25 MG TABLET Take 1 tablet by mouth every * INSULIN GLARGINE (U-100) 100 * Inject 36 units subcutaneousl* BUSPIRONE 5 MG TABLET Take 1.5 tablets by mouth twi* ALBUTEROL SULFATE HFA 90 MCG/* Inhale 2 Puffs as instructed * LYRICA 100 MG CAPSULE TAKE 1 CAPSULE BY MOUTH THREE* BIPAP Bilevel PAP 16/12 cmH2O with * OMEPRAZOLE 20 MG CAPSULE,MARIA EUGENIA* Take 1 capsule by mouth once * INSULIN LISPRO (U-200) 200 UN* Inject subcutaneously 14 unit* METOPROLOL TARTRATE 100 MG TA* TAKE 1 TABLET BY MOUTH TWICE * DULOXETINE 60 MG CAPSULE,MARIA EUGENIA* TAKE 1 CAPSULE BY MOUTH DAILY METFORMIN ER 500 MG TABLET,EX* TAKE 2 TABLETS BY MOUTH TWICE* PSEUDOEPHEDRINE-GUAIFENESIN E* Take 1 tablet by mouth twice * ESTRADIOL 0.01% (0.1 MG/GRAM)* Apply pea-sized amount to per* COMPOUNDED PRESCRIPTION Please fit for BiPAP mask. BUX ULTRA BLUE TEST STRIP USE DIRECTED TO CHECK BLOO* ONETOUCH DELICA LANCETS 30 GA* USE TO CHECK BLOOD SUGAR 4-5 * COMPOUNDED PRESCRIPTION OCD Titration for portable ox* CAPSAICIN 0.075 % TOPICAL CRE* Apply 1 application to affect* ULTICARE PEN NEEDLE 31 GAUGE * USE DIRECTED. TO INJECT IN* VITAMIN C 500 MG TABLET TAKE 1 TABLET BY MOUTH DAILY FERROUS GLUCONATE 324 MG (38 * TAKE 1 TABLET BY MOUTH DAILY * ISOSORBIDE MONONITRATE ER 60 * Take 1.5 tablets by mouth onc* ATORVASTATIN 40 MG TABLET TAKE 1 TABLET BY MOUTH DAILY DILTIAZEM SR 180 MG 24 HR CAP TAKE 1 CAPSULE BY MOUTH EVERY* LEVOTHYROXINE 100 MCG TABLET TAKE 1 TABLET BY MOUTH EVERY * ELIQUIS 2.5 MG TABLET TAKE 1 TABLET BY MOUTH TWICE * NITROGLYCERIN 0.4 MG SUBLINGU* DISSOLVE 1 TAB UNDER THE TONG* GLUCOSE 4 GRAM CHEWABLE TABLET Take 4 tablets by mouth as ne* OXYGEN (HOME THERAPY) Inhale 3 L/min as instructed * FLUTICASONE 50 MCG/ACTUATION * Use 2 Sprays in each nostril * FUROSEMIDE 40 MG TABLET Take 1 tablet by mouth twice * COMPOUNDED PRESCRIPTION Evaluation for diabetic shoes* INCONTINENCE PAD, LINER, DISP* 1 Device as needed (urinary i* COMPOUNDED PRESCRIPTION BLOOD PRESSURE CUFF FOR HOME * BLOOD-GLUCOSE METER KIT UAD to test blood sugar ALCOHOL SWABS UAD to clean skin before test* Problem List As Of Date 06/12/2018 Noted Resolved SUBJECTIVE TINNITUS [H93.19] INVALID FOR* PARESH treated with BiPAP [G47.33] INVALID FOR* Hyperlipidemia [E78.5] INVALID FOR* Coronary disease [I25.10] INVALID FOR* Diabetes mellitus, type II ([facility]) [E11.9] INVALID FOR* Morbid obesity ([facility]) [E66.01] Hypothyroidism [E03.9] Anxiety [F41.9] Sleep apnea [G47.30] 02/14/2017 Essential hypertension [I10] Coronary artery disease of port lions artery of stoney* AF (paroxysmal atrial fibrillation) ([facility]) [I48.* COPD (chronic obstructive pulmonary disease) (H* GERD without esophagitis [K21.9] Dysphagia [R13.10] Constipation [K59.00] DM type 2 (diabetes mellitus, type 2) ([facility]) [E1* 02/14/2017 Shortness of breath [R06.02] 02/14/2017 Arthritis [M19.90] More... CHF (congestive heart failure) ([facility]) [I50.9] BPPV (benign paroxysmal positional vertigo) [H8*INVALID FOR* RLS (restless legs syndrome) [G25.81] INVALID FOR* Iron deficiency concern: RE RLS [E61.1] INVALID FOR* Tubular adenoma [D36.9] INVALID FOR* Incontinence [R32] More... Gastroparesis [K31.84] INVALID FOR* Pre-op testing [Z01.818] INVALID FOR* More... Hypercapnia [R06.89] INVALID FOR* S/P coronary artery stent placement [Z95.5] INVALID FOR* Stage 3 chronic kidney disease [N18.3] INVALID FOR* Depression [F32.9] INVALID FOR* Obesity, Class II, BMI 35-39.9 [E66.9] INVALID FOR* Encounter Status:Closed by GLORIA VERDUGO on 06/12/18 PROGRESS Observed: 06/03/2018 Status: COMPLETED Source: RUSSELL 12:29 PM [facility] REPOSITORY HNO ID: [id number] Author: Jessica Lobo (Sw) Service: (none) Author Type: Marriage Counselor Minister Type: Progress Notes Filed: 06/03/2018 12:35 PM Note Text: Aroldo spoke with patient and family in regards to rental deposit assistance agencies. Sw advised patient to check with [employer] and [employer] to see if they have financial assistance for deposit. Patient looking at nishant Hernandez has [employer] so her rent assistance is provided through [employer]. PROGRESS Observed: 06/03/2018 Status: COMPLETED Source: RUSSELL 11:44 AM [facility] REPOSITORY HNO ID: [id number] Author: Saad Allen) Larry Service: (none) Author Type: Registered Nurse Type: Progress Notes Filed: 06/03/2018 12:00 PM Note Text: PRIMARY CARE COORDINATION IN OFFICE VISIT WITH PCP Patient has been identified by name and date of . PCP Assessment/Plan: Reviewed PCP plan with patient using [employer] Discussed oxygen and Bipap use. Pt doesn't have oxygen on today, however sister states the tubing was broken so they couldn't fill it and DME is coming to fix it today Discussed BS, increasing insulin, eating healthy DM diet and PCC will call for BS in 2-3 weeks. Instructed to call PCC if she has BS 70 or lower, verbalized understanding. Discussed moving into new apartment. Sisters are taking patient to look for apartments this week PCC Plan of Care: Patient goals: Pt will wear oxygen at all times and Bipap when sleeping Pt will increase insulin dose, will eat healthy DM diet and check BS appropriately Next Office Visit: Visit date not found Plan For Next Call: 2 weeks Saad Silvestre RN June 03, 2018 PROGRESS Observed: 06/03/2018 Status: COMPLETED Source: RUSSELL 11:21 AM [facility] REPOSITORY HNO ID: [id number] Author: Clayton Serna Ma Service: (none) Author Type: (none) Type: Progress Notes Filed: 06/03/2018 3:45 PM Note Text: 63 year old female here for INACTIVATED INFLUENZA VACCINE. [id number] Season Patient is identified by name and date of : Yes [] CONTRAINDICATIONS color enhanced section Age less than 6 months? No Allergy to eggs, chicken, chicken feathers, or chicken dander? No Allergy to thimerosal (a preservative) or formaldehyde? No History of severe reaction to any vaccine component or a previous dose of influenza vaccination? No History of Guillain-Bellevue Syndrome within 6 weeks after a previous influenza vaccine? No Current moderate or severe illness? No Current temperature greater or equal to 100.4F? No History of Bone Marrow Transplant in past 6 months or solid organ transplant in the past 3 months ? No [] VERIFICATION color enhanced section Was the answer Yes for any of the above contraindications? No contraindications present. Acceptable to proceed with vaccine. Patient/guardian agrees the above answers are true to the best of their knowledge? Yes Flu vaccine information sheet given? Yes See immunization activity in [facility] for details of immunizations adminstered today. Patient age: [age] year old For The 8239-1944 Flu Season 6-35 months old: Fluzone 0.25 ml - IM (Preservative Free) 3 years of age: Fluzone 0.5 ml - IM (Preservative Free) 3 years and older: Fluzone 0.5 ml- IM-(with Preservatives) 65+ years old: Fluzone High-Dose 0.5 ml - IM (Preservative Free) REMEMBER: If patient is less than 9 years of age and this is the first vaccine of Influenza to be received in any flu season, they should receive a second dose in one months time. PROGRESS Observed: 06/03/2018 Status: COMPLETED Source: RUSSELL 11:13 AM [facility] REPOSITORY [facility] ID: [id number] Author: Nanda Rodriguez) Brian Service: (none) Author Type: Physician Type: Progress Notes Filed: 06/03/2018 3:45 PM Note Text: Chief Complaint Patient presents with: Recheck: 2-3 week follow up Imm/Inj: Flu Vaccine HPI Tamia Panda is a 63 year old female who presents here today for 2-3 week follow up on DM and use of Bipap for PARESH and to prevent hypercapnia which she has required hospitalization for several times in the last 6 months. Patient accompanied today by sister Ivy and Mery. Still using her Bipap nightly and seems to be working well for PARESH. Fell asleep last night on the couch without Bipap. Complains of dry throat due to the Bipap. Has humidifier in place. Discussed contacting [employer] for adjustment. Notes that a few days ago she became more confused for a couple hours without other neurologic symptoms of slurred speech, vision changes, numbness, tingling, weakness. Was wearing oxygen at the time and had been using Bipap the night before. Was given peanut butter thinking she was hypoglycemic, but when sisters checked her sugars they were in the 250s. Has not had recurrent episode since that time. Alert and oriented today and is able to give own history. Had recent CT scan of brain in the last 2 months, had multiple workups for stroke with hypercapnic episodes. ] Is without her oxygen today because her portable concentrator broke. Using large oxygen tank while at home. [employer] is coming out today to fix. Patient still using her Lantus 30 units BID and is getting high blood sugars. Today was 250's which has been typical. Taking meal time insulin as prescribed. Denies hypoglycemia. Discussed increasing dosage of lantus and continuing meal times. Should be checking glucose readings 3 times per day. Depression symptoms well controlled on Cymbalta. Anxiety symptoms have been worse in the last few weeks. Admits to excessive worrying, inability to control worrying, agitation/irritability, trouble concentrating. Denies panic symptoms. Currently living at sister Mery's house. Has been looking for housing, called over to [employer] and other locations. Needs to drop off information to [facility] to hopefully get placement. Planning on staying with Mery until she can find a place. Requesting flu shot today. Past medical history, appointments, medications, allergies reviewed. Previous Medical History PAST MEDICAL HISTORY Diagnosis Date - Acute chronic obstructive pulmonary disease with respiratory failure (HCC) - AF (paroxysmal atrial fibrillation) (HCC) - Anxiety - Arthritis Seeing Dr Elliott - Cervical cancer (HCC) hysterectomy - CHF (congestive heart failure) ([facility]) - Chronic back pain Seeing Dr. Wallace - Constipation - COPD (chronic obstructive pulmonary disease) ([facility]) DME [facility] for BiPAP and [facility] , [place] for O2. - Coronary atherosclerosis of port lions coronary artery Previously seeing Dr. Sosa - DDD (degenerative disc disease), lumbar - DM type 2 (diabetes mellitus, type 2) ([facility]) Seeing Dr. Foley for podiatry - DVT (deep venous thrombosis) ([facility]) Post op INA, BSO. - Dysphagia Seeing Dr. Beaulieu - Emphysema lung ([facility]) - Essential hypertension - Functional dyspepsia - Gastroparesis 2017 mild - GERD without esophagitis - Headache - History of colon polyps 11/28/2016 - Hyperlipidemia - Hypothyroidism - Incontinence Seeing Dr. Chapman - Lung nodule 02/[address] in 3 months - Morbid obesity ([facility]) - Muscle weakness - Nausea - PARESH on CPAP DME [facility] for BiPAP and [facility] , [place] for O2. - PE (pulmonary thromboembolism) ([facility]) Post op INA/BSO. - Pneumonia - RLS (restless legs syndrome) - Shortness of breath - Sleep apnea using oxygen currently, not on CPAP - Unsteadiness on feet - Wheezing Previous Surgical History PAST SURGICAL HISTORY Procedure Laterality Date - CHOLECYSTECTOMY - COLONOS W/REM POLYP SNARE 11/28/2016 Repeat 2020 - COLONOSCOPY Has had multiple in the past with polyps, cannot remember dates - EGD W/O BRSH SPECIMEN W/BX 11/28/2016 - HERNIA REPAIR HX multiple - KNEE SURGERY HX Left x3 for torn cartilage - NASAL SURGERY PROCEDURE sinus - TOTAL ABDOM HYSTERECTOMY 1987 Cervical cancer - TUBAL LIGATION HX - WRIST SURGERY HX Right ganglion cyst removal x2 Family History FAMILY HISTORY Problem Relation Age of Onset - Coronary Artery Disease Mother - Coronary Artery Disease Father - Asthma Brother - Coronary Artery Disease Brother - Diabetes Sister - Hypertension Sister - Diabetes Sister - Heart Sister - Allergies Sister - Asthma Sister - Allergies Sister - Emphysema Sister Early stages - COPD Paternal Uncle Patient Allergies ALLERGIES Allergen Reactions - Adhesive Tape (Adrienne* Intolerance Surgical tape leaves rash Irritates skin badly and blisters along with medical tape - Cats Other: See Comments Congested and itchy, difficulty breathing - Dogs Other: See Comments Congestion, sneezing, and difficulty breathing - Orphenadrine Unknown - Capsaicin Itching - Ciprofloxacin Other: See Comments Red, hot, itchy rash - Keflex [Cephalexin] Hives Negative skin testing and successful completion of an oral amoxicillin challenge was completed on 03/02/2018. Cephalexin shares an almost identical R1 side chain to amoxicillin; therefore, it is unlikely that she would be at elevated risk for developing an IgE-mediated reaction (allergic/anaphylactic). If she should need this medication in the future, I would recommend giving the first dose in a supervised medical setting. If no reaction after 30 minutes, proceed with regular dosing. - Niacin Unknown Pt states its niacin its niaspan - Reglan [Metoclopram* Other: See Comments Unable to sleep - Xanthines Unknown - Zofran [Ondansetron* Itching Current Medications Current Outpatient Prescriptions on File Prior to Visit: insulin glargine (LANTUS SOLOSTAR U-100 INSULIN) 100 unit/mL (3 mL) inpn Inject 30 units subcutaneously twice daily albuterol HFA (PROAIR HFA) 90 mcg/actuation inhaler Inhale 2 Puffs as instructed every 4 hours as needed for Wheezing/Shortness of Breath. LYRICA 100 mg capsule TAKE 1 CAPSULE BY MOUTH THREE TIMES A DAY BIPAP Bilevel PAP 16/12 cmH2O with 2 LPM oxygen bleed in, mask, tubing, filters, heated humidity, lifetime supplies. Dx: G47.33, G47.39. omeprazole (PRILOSEC) 20 mg capsule Take 1 capsule by mouth once daily. insulin lispro (HUMALOG KWIKPEN INSULIN) 200 unit/mL (3 mL) injection Inject subcutaneously 14 units with breakfast, 22 units with lunch, and 24 units with dinner metoprolol tartrate, short acting, (LOPRESSOR) 100 mg tablet TAKE 1 TABLET BY MOUTH TWICE A DAY DULoxetine (CYMBALTA) 60 mg capsule TAKE 1 CAPSULE BY MOUTH DAILY metFORMIN ER (GLUCOPHAGE XR) 500 mg 24 hr tablet TAKE 2 TABLETS BY MOUTH TWICE A DAY promethazine (PHENERGAN) 25 mg tablet Take 1 tablet by mouth every 6 hours as needed. aspirin, enteric coated (ASPIRIN, ENTERIC COATED) 81 mg EC tablet TAKE 1 TABLET BY MOUTH EVERY MORNING CLAUDIA-KYLE 8.6 mg tab TAKE 1 TABLET BY MOUTH TWICE A DAY STOOL SOFTENER 100 mg capsule TAKE 1 CAPSULE BY MOUTH DAILY Pseudoephedrine-guaiFENesin (MUCINEX D MAXIMUM STRENGTH) 120- 1,200 mg Tb12 Take 1 tablet by mouth twice daily. estradiol (ESTRACE) 0.01 % (0.1 mg/gram) vaginal cream Apply pea-sized amount to perineum and 1 applicator vaginally Mon, Wed, Fri for atrophic vaginitis. COMPOUNDED PRESCRIPTION Please fit for BiPAP mask. ONETOUCH ULTRA BLUE TEST STRIP test strip USE DIRECTED TO CHECK BLOOD SUGAR 4-5 TIMES DAILY ONETOUCH DELICA LANCETS 30 gauge misc USE TO CHECK BLOOD SUGAR 4-5 TIMES DALIY COMPOUNDED PRESCRIPTION OCD Titration for portable oxygen concentrator Oxygen Flow Rate between 2-6 liters. To keep oxygen saturation at or above 92%. capsaicin (ZOSTRIX-HP) 0.075 % topical cream Apply 1 application to affected area four times daily. ULTICARE PEN NEEDLE 31 gauge x 02/04 ndle USE DIRECTED. TO INJECT INSULINS VITAMIN C 500 mg tablet TAKE 1 TABLET BY MOUTH DAILY Ferrous Gluconate (FERGON) 324 mg (38 mg iron) tablet TAKE 1 TABLET BY MOUTH DAILY WITH BREAKFAST isosorbide mononitrate ER (IMDUR) 60 mg 24 hr tablet Take 1.5 tablets by mouth once daily. In the morning atorvastatin (LIPITOR) 40 mg tablet TAKE 1 TABLET BY MOUTH DAILY diltiazem CD (CARDIZEM CD, CARTIA XT) 180 mg 24 hr capsule TAKE 1 CAPSULE BY MOUTH EVERY MORNING levothyroxine (SYNTHROID) 100 mcg tablet TAKE 1 TABLET BY MOUTH EVERY MORNING ELIQUIS 2.5 mg tab tab(s) TAKE 1 TABLET BY MOUTH TWICE A DAY nitroglycerin sublingual (NITROQUICK) 0.4 mg SL tablet DISSOLVE 1 TAB UNDER THE TONGUE NEEDED FOR CHEST PAIN EVERY 5 MINUTES UP TO 3 TIMES. IF NO RELIEF CALL 911. glucose 4 gram chewable tablet Take 4 tablets by mouth as needed for Low Blood Sugar. OXYGEN, HOME THERAPY, Inhale 3 L/min as instructed as directed. fluticasone (FLONASE) 50 mcg/actuation nasal spray Use 2 Sprays in each nostril once daily. furosemide (LASIX) 40 mg tablet Take 1 tablet by mouth twice daily. COMPOUNDED PRESCRIPTION Evaluation for diabetic shoes and inserts Dx: E11.65, Z79.4 Incontinence Pad, Liner, Disp pads 1 Device as needed (urinary incontinence). Prevail incontinence pads. Dx: urinary incontinence. Size: small Blood Pressure Cuff - Home Use BLOOD PRESSURE CUFF FOR HOME USE. DX: LABILE BLOOD PRESSURE Blood-Glucose Meter (ONETOUCH ULTRA2) monitoring kit UAD to test blood sugar Alcohol Swabs padm UAD to clean skin before testing blood sugar and injecting insulins. No current facility-administered medications on file prior to visit. 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 Social History Main Topics Smoking status: Former Smoker Packs/day: 1.00 Years: 28.00 Types: Cigarettes Start date: 1978 Quit date: 09/22/2005 Smokeless tobacco: Never Used Comment: Father smoked in childhood. 2nd spouse smoked in home. Alcohol use: No Drug use: No Sexual activity: No Social History Narrative 1 year in current home. No basement, 1 parakeet. Room A/C. Electric baseboard heat. Review of Symptoms REVIEW OF SYSTEMS GENERAL: No weight loss, malaise or fevers RESPIRATORY: Negative for cough, hemoptysis, wheezing, COPD, dyspnea or shortness of breath CARDIOVASCULAR: admits to intermittent atypical chest pain present for weeks to months. denies palpitations, leg swelling GI: No nausea, vomiting, or diarrhea SKIN: Negative for lesions, rash, and itching EXAM: BP 118/74 Pulse 68 Temp 36.6 ?C (97.8 ?F) (Temporal Artery) Resp 14 General Appearance: Well appearing, alert, in no acute distress, well-hydrated, well nourished.. Skin: Skin color, texture, turgor normal, no suspicious rashes or lesions. Lungs: Lungs clear to auscultation. No wheezing, rhonchi, rales. Heart: RRR without murmur, gallop, or rubs. No ectopy. Abdomen: Normal abdominal exam, Abdomen soft, non-tender. Bowel sounds normal. No masses, organomegaly. Extremities: No deformities, edema, skin discoloration, clubbing or cyanosis. Good capillary refill. . Health Maintenance List INFLUENZA(1) due on 05/23/2018 DILATED RETINAL EXAM due on 07/03/2018 BACILIO/ARB MED PRESCRIBED due on 06/22/2018 STATIN MED ADHERENCE due on 06/22/2018 DIABETES MED ADHERENCE due on 06/22/2018 HBA1C due on 11/19/2018 MAMMOGRAM due on 12/11/2018 LDL CHOLESTEROL due on 12/11/2018 URINE ALBUMIN:CREATININE RATIO due on 05/20/2019 DIABETIC FOOT EXAM due on 05/20/2019 ANNUAL PCP TEAM CHRONIC DISEASE VISIT due on 05/20/2019 SERUM CREATININE due on 05/20/2019 BP CONTROLLED (<130/80) due on 05/20/2019 COLORECTAL CANCER SCREENING,SEE MODIFIER due on 11/30/2019 PAP EVERY 5 YEARS due on 11/27/2021 HPV EVERY 5 YEARS due on 11/27/2021 DTAP,TDAP,TD(2 - Td) due on 10/02/2026 ONE PNEUMOVAX PRIOR TO AGE 65 Completed HEPATITIS C SCREENING Completed Data reviewed Component Latest Ref Rng AND Units 03/20/2018 04/13/2018 05/20/2018 WBC 3.70 - 11.00 k/uL 6.53 RBC 3.90 - 5.20 m/uL 3.92 Hemoglobin 11.5 - 15.5 g/dL 11.3 (L) Hematocrit 36.0 - 46.0 % 36.8 MCV 80.0 - 100.0 fL 93.9 MCH 26.0 - 34.0 pG 28.8 MCHC 30.5 - 36.0 g/dL 30.7 RDW-CV 11.5 - 15.0 % 17.2 (H) Platelet Count 150 - 400 k/uL 206 MPV 9.0 - 12.7 fL 11.5 Neut% % 61.6 Abs Neut (ANC) 1.45 - 7.50 k/uL 4.02 Lymph% % 24.0 Abs Lymph 1.00 - 4.00 k/uL 1.57 Bethel% % 11.0 Abs Bethel <0.87 k/uL 0.72 Eosin% % 2.8 Abs Eosin <0.46 k/uL 0.18 Baso% % 0.6 Abs Baso <0.11 k/uL 0.04 Nucleated Reds 0 /100 WBC 0.3 (H) Absolute nRBC <0.01 k/uL 0.02 (H) Diff Type Auto Diff Protein, Total 6.3 - 8.0 g/dL 6.6 7.1 Albumin 3.9 - 4.9 g/dL 3.7 (L) 3.7 (L) Calcium 8.5 - 10.2 mg/dL 8.6 8.8 8.8 Bilirubin, Total 0.2 - 1.3 mg/dL 0.7 0.6 Alkaline Phosphatase 32 - 117 U/L 40 44 AST 13 - 35 U/L 19 15 Glucose 74 - 99 mg/dL 116 (H) 177 (H) 174 (H) BUN 7 - 21 mg/dL 13 14 12 Creatinine 0.58 - 0.96 mg/dL 0.62 0.67 0.60 Sodium 136 - 144 mmol/L 141 142 143 Potassium 3.7 - 5.1 mmol/L 4.1 3.8 3.9 Chloride 97 - 105 mmol/L 97 95 (L) 99 CO2 22 - 30 mmol/L 34 (H) 34 (H) 26 Anion Gap 9 - 18 mmol/L 10 13 18 ALT 7 - 38 U/L 15 9 eGFR- >60 >60 >60 eGFR-All Other Races . >60 >60 >60 Sm Antibody <1.0 AI 0.4 SYNTHETIC STAPLE EXTRUDER Antibody <1.0 AI 0.3 SSA Antibody <1.0 AI <0.2 SSB Antibody <1.0 AI <0.2 Centromere Ab <1.0 AI <0.2 Scleroderma Ab, IgG <1.0 AI <0.2 Jossy 1 Antibody <1.0 AI <0.2 Ribosomal SYNTHETIC STAPLE EXTRUDER <1.0 AI <0.2 Chromatin Antibody <1.0 AI <0.2 c-ANCA Fluorescence Negative Negative p-ANCA Fluorescence Negative Negative Proteinase-3 Antibody <1.0 AI Test not performed on samples negative by immunofluorescence. Myeloperoxidase Antibody (MPO) <1.0 AI Test not performed on samples negative by immunofluorescence. Interpretation (ANCA) Negative for C-ANCA and P-ANCA by indirect immunofluorescence. Staff Review (ANCA) Staff review not performed on samples negative by immunofluorescence. BURT Negative Negative BURT Titer Negative Negative BURT Pattern Not applicable for negative result. Creatinine, Ur Random (UCRR) 20 - 300 mg/dL 66.1 Albumin, Urine Random 0.0 - 23.0 mg/L 16.2 Albumin/Creat Ratio 0 - 30 mg/g 25 BURT by EIA, Qual Negative Positive (A) BURT by EIA OD Ratio 10.4 Hemoglobin A1C 4.3 - 5.6 % 6.0 (H) Estimated Average Glucose mg/dL 126 Aldolase 1.2 - 7.6 U/L 4.8 Rheumatoid Factor <16 IU/mL <10 CRP <0.9 mg/dL 0.2 WSR 0 - 20 mm/hr 15 CK 42 - 196 U/L 31 (L) Scl-70 Abs, EIA <1.0 AI <0.2 DNA Antibody w/Confirmation <30 IU/mL 16 TSH 0.400 - 5.500 uU/mL 0.891 ASSESSMENT/PLAN: 1. PARESH treated with BiPAP - ICD9: 327.23, ICD10: G47.33 (primary diagnosis) Symptoms improved with Bipap. Advised she needs to set reasonable bed time and make sure she sleep with Bipap on, not falling asleep on couch. Discussed risks of non compliance. 2. Altered mental status, unspecified altered mental status type - ICD9: 780.97, ICD10: R41.82 Recurrent episode last week. Normal exam today. Suspect she may not be using Bipap as directed as she says. Discussed compliance with machine and is to call or return to the ED with repeat symptoms. 3. Type 2 diabetes mellitus with diabetic neuropathy, with long-term current use of insulin (HCC) - ICD9: 250.60, 357.2, V58.67, ICD10: E11.40, Z79.4 improved control - Increase Lantus 36 units QPM - Blood glucose monitoring on a three times a day schedule - Ophthalmology referral for eval/management of diabetic eye changes - Encouraged regular aerobic exercise and weight loss - Daily Asprin therapy recommended - Follow up in 2 months, sooner should any other issues arise. - INSULIN GLARGINE (U-100) 100 UNIT/ML (3 ML) SUBCUTANEOUS PEN 4. Atypical chest pain - ICD9: 786.59, ICD10: R07.89 Had cath earlier this year showing new occlusion of circumflex without need for stenting. Recommend follow up with cardiology for recurrent symptoms. Continue current regimen. 5. Nausea - ICD9: 787.02, ICD10: R11.0 - PROMETHAZINE 25 MG TABLET 6. Essential hypertension - ICD9: 401.9, ICD10: I10 - good control - Continue current medication(s) - Encouraged dietary sodium restriction/DASH diet - Recommended regular aerobic exercise. - Reviewed risks of HTN and principles of treatment - Goal of BP <140/90 7. Depression, unspecified depression type - ICD9: 311, ICD10: F32.9 Well controlled on current regimen. Continue Cymbalta. 8. Anxiety - ICD9: 300.00, ICD10: F41.9 Will add buspar to regimen and recheck in 2 months. - BUSPIRONE 5 MG TABLET 9. Need for vaccination - ICD9: V05.9, ICD10: Z23 - INFLUENZA VACCINE QUADRIVALENT AGE 3 YRS PLUS + IM I spent 40 minutes in the visit, with more than 50% of the total [id number] time of the visit in counseling / coordination of care. Nanda Oliveira MD CNOV Observed: 06/03/2018 Status: COMPLETED Source: [facility] 11:00 AM [facility] REPOSITORY Office Visit (FAMPWS) TAMIA PANDA ([id number]) 1955 F Date Time Provider Department 06/03/18 11:00 AM [facility] visit today, we recorded the following information about you: Temperature Pulse Respiration Blood pressure 97.8 degrees 68/minute 14/minute 118/74 Nanda Oliveira MD 06/03/2018 3:45 PM Signed Chief Complaint Patient presents with: Recheck: 2-3 week follow up Imm/Inj: Flu Vaccine HPI Tamia Panda is a 63 year old female who presents here today for 2-3 week follow up on DM and use of Bipap for PARESH and to prevent hypercapnia which she has required hospitalization for several times in the last 6 months. Patient accompanied today by sister Ivy and Mery. Still using her Bipap nightly and seems to be working well for PARESH. Fell asleep last night on the couch without Bipap. Complains of dry throat due to the Bipap. Has humidifier in place. Discussed contacting company for adjustment. Notes that a few days ago she became more confused for a couple hours without other neurologic symptoms of slurred speech, vision changes, numbness, tingling, weakness. Was wearing oxygen at the time and had been using Bipap the night before. Was given peanut butter thinking she was hypoglycemic, but when sisters checked her sugars they were in the 250s. Has not had recurrent episode since that time. Alert and oriented today and is able to give own history. Had recent CT scan of brain in the last 2 months, had multiple workups for stroke with hypercapnic episodes. ] Is without her oxygen today because her portable concentrator broke. Using large oxygen tank while at home. Company is coming out today to fix. Patient still using her Lantus 30 units BID and is getting high blood sugars. Today was 250's which has been typical. Taking meal time insulin as prescribed. Denies hypoglycemia. Discussed increasing dosage of lantus and continuing meal times. Should be checking glucose readings 3 times per day. Depression symptoms well controlled on Cymbalta. Anxiety symptoms have been worse in the last few weeks. Admits to excessive worrying, inability to control worrying, agitation/irritability, trouble concentrating. Denies panic symptoms. Currently living at sister Mery's house. Has been looking for housing, called over to [facility] and other locations. Needs to drop off information to [facility] to hopefully get placement. Planning on staying with Mery until she can find a place. Requesting flu shot today. Past medical history, appointments, medications, allergies reviewed. Previous Medical History PAST MEDICAL HISTORY Diagnosis Date - Acute chronic obstructive pulmonary disease with respiratory failure ([facility]) - AF (paroxysmal atrial fibrillation) ([facility]) - Anxiety - Arthritis Seeing Dr Elliott - Cervical cancer ([facility]) hysterectomy - CHF (congestive heart failure) ([facility]) - Chronic back pain Seeing Dr. Wallace - Constipation - COPD (chronic obstructive pulmonary disease) ([facility]) [facility] for BiPAP and [facility]. - Coronary atherosclerosis of [place] lions coronary artery Previously seeing Dr. Sosa - DDD (degenerative disc disease), lumbar - DM type 2 (diabetes mellitus, type 2) ([facility]) Seeing Dr. Foley for podiatry - DVT (deep venous thrombosis) ([facility]) Post op INA, BSO. - Dysphagia Seeing Dr. Beaulieu - Emphysema lung ([facility]) - Essential hypertension - Functional dyspepsia - Gastroparesis 2017 mild - GERD without esophagitis - Headache - History of colon polyps 11/28/2016 - Hyperlipidemia - Hypothyroidism - Incontinence Seeing Dr. Chapman - Lung nodule 02/[address] in 3 months - Morbid obesity (HCC) - Muscle weakness - Nausea - PARESH on CPAP [facility] for BiPAP and [facility] for O[facility]. - PE (pulmonary thromboembolism) (HCC) Post op INA/BSO. - Pneumonia - RLS (restless legs syndrome) - Shortness of breath - Sleep apnea using oxygen currently, not on CPAP - Unsteadiness on feet - Wheezing Previous Surgical History PAST SURGICAL HISTORY Procedure Laterality Date - CHOLECYSTECTOMY - COLONOS W/REM POLYP SNARE 11/28/2016 Repeat 2019 - COLONOSCOPY Has had multiple in the past with polyps, cannot remember dates - EGD W/O BRSH SPECIMEN W/BX 11/28/2016 - HERNIA REPAIR HX multiple - KNEE SURGERY HX Left x3 for torn cartilage - NASAL SURGERY PROCEDURE sinus - TOTAL ABDOM HYSTERECTOMY 1987 Cervical cancer - TUBAL LIGATION HX - WRIST SURGERY HX Right ganglion cyst removal x2 Family History FAMILY HISTORY Problem Relation Age of Onset - Coronary Artery Disease Mother - Coronary Artery Disease Father - Asthma Brother - Coronary Artery Disease Brother - Diabetes Sister - Hypertension Sister - Diabetes Sister - Heart Sister - Allergies Sister - Asthma Sister - Allergies Sister - Emphysema Sister Early stages - COPD Paternal Uncle Patient Allergies ALLERGIES Allergen Reactions - Adhesive Tape (Adrienne* Intolerance Surgical tape leaves rash Irritates skin badly and blisters along with medical tape - Cats Other: See Comments Congested and itchy, difficulty breathing - Dogs Other: See Comments Congestion, sneezing, and difficulty breathing - Orphenadrine Unknown - Capsaicin Itching - Ciprofloxacin Other: See Comments Red, hot, itchy rash - Keflex [Cephalexin] Hives Negative skin testing and successful completion of an oral amoxicillin challenge was completed on 03/02/2018. Cephalexin shares an almost identical R1 side chain to amoxicillin; therefore, it is unlikely that she would be at elevated risk for developing an IgE-mediated reaction (allergic/anaphylactic). If she should need this medication in the future, I would recommend giving the first dose in a supervised medical setting. If no reaction after 30 minutes, proceed with regular dosing. - Niacin Unknown Pt states its niacin its niaspan - Reglan [Metoclopram* Other: See Comments Unable to sleep - Xanthines Unknown - Zofran [Ondansetron* Itching Current Medications Current Outpatient Prescriptions on File Prior to Visit: insulin glargine (LANTUS SOLOSTAR U-100 INSULIN) 100 unit/mL (3 mL) inpn Inject 30 units subcutaneously twice daily albuterol HFA (PROAIR HFA) 90 mcg/actuation inhaler Inhale 2 Puffs as instructed every 4 hours as needed for Wheezing/Shortness of Breath. LYRICA 100 mg capsule TAKE 1 CAPSULE BY MOUTH THREE TIMES A DAY BIPAP Bilevel PAP 16/12 cmH2O with 2 LPM oxygen bleed in, mask, tubing, filters, heated humidity, lifetime supplies. Dx: G47.33, G47.39. omeprazole (PRILOSEC) 20 mg capsule Take 1 capsule by mouth once daily. insulin lispro (HUMALOG KWIKPEN INSULIN) 200 unit/mL (3 mL) injection Inject subcutaneously 14 units with breakfast, 22 units with lunch, and 24 units with dinner metoprolol tartrate, short acting, (LOPRESSOR) 100 mg tablet TAKE 1 TABLET BY MOUTH TWICE A DAY DULoxetine (CYMBALTA) 60 mg capsule TAKE 1 CAPSULE BY MOUTH DAILY metFORMIN ER (GLUCOPHAGE XR) 500 mg 24 hr tablet TAKE 2 TABLETS BY MOUTH TWICE A DAY promethazine (PHENERGAN) 25 mg tablet Take 1 tablet by mouth every 6 hours as needed. aspirin, enteric coated (ASPIRIN, ENTERIC COATED) 81 mg EC tablet TAKE 1 TABLET BY MOUTH EVERY MORNING CLAUDIA-KYLE 8.6 mg tab TAKE 1 TABLET BY MOUTH TWICE A DAY STOOL SOFTENER 100 mg capsule TAKE 1 CAPSULE BY MOUTH DAILY Pseudoephedrine-guaiFENesin (MUCINEX D MAXIMUM STRENGTH) 120- 1,200 mg Tb12 Take 1 tablet by mouth twice daily. estradiol (ESTRACE) 0.01 % (0.1 mg/gram) vaginal cream Apply pea-sized amount to perineum and 1 applicator vaginally Mon, Wed, Fri for atrophic vaginitis. COMPOUNDED PRESCRIPTION Please fit for BiPAP mask. ONETOUCH ULTRA BLUE TEST STRIP test strip USE DIRECTED TO CHECK BLOOD SUGAR 4-5 TIMES DAILY ONETOUCH DELICA LANCETS 30 gauge misc USE TO CHECK BLOOD SUGAR 4-5 TIMES DALIY COMPOUNDED PRESCRIPTION OCD Titration for portable oxygen concentrator Oxygen Flow Rate between 2-6 liters. To keep oxygen saturation at or above 92%. capsaicin (ZOSTRIX-HP) 0.075 % topical cream Apply 1 application to affected area four times daily. ULTICARE PEN NEEDLE 31 gauge x 5/16 ndle USE DIRECTED. TO INJECT INSULINS VITAMIN C 500 mg tablet TAKE 1 TABLET BY MOUTH DAILY Ferrous Gluconate (FERGON) 324 mg (38 mg iron) tablet TAKE 1 TABLET BY MOUTH DAILY WITH BREAKFAST isosorbide mononitrate ER (IMDUR) 60 mg 24 hr tablet Take 1.5 tablets by mouth once daily. In the morning atorvastatin (LIPITOR) 40 mg tablet TAKE 1 TABLET BY MOUTH DAILY diltiazem CD (CARDIZEM CD, CARTIA XT) 180 mg 24 hr capsule TAKE 1 CAPSULE BY MOUTH EVERY MORNING levothyroxine (SYNTHROID) 100 mcg tablet TAKE 1 TABLET BY MOUTH EVERY MORNING ELIQUIS 2.5 mg tab tab(s) TAKE 1 TABLET BY MOUTH TWICE A DAY nitroglycerin sublingual (NITROQUICK) 0.4 mg SL tablet DISSOLVE 1 TAB UNDER THE TONGUE NEEDED FOR CHEST PAIN EVERY 5 MINUTES UP TO 3 TIMES. IF NO RELIEF CALL 911. glucose 4 gram chewable tablet Take 4 tablets by mouth as needed for Low Blood Sugar. OXYGEN, HOME THERAPY, Inhale 3 L/min as instructed as directed. fluticasone (FLONASE) 50 mcg/actuation nasal spray Use 2 Sprays in each nostril once daily. furosemide (LASIX) 40 mg tablet Take 1 tablet by mouth twice daily. COMPOUNDED PRESCRIPTION Evaluation for diabetic shoes and inserts Dx: E11.65, Z79.4 Incontinence Pad, Liner, Disp pads 1 Device as needed (urinary incontinence). Prevail incontinence pads. Dx: urinary incontinence. Size: small Blood Pressure Cuff - Home Use BLOOD PRESSURE CUFF FOR HOME USE. DX: LABILE BLOOD PRESSURE Blood-Glucose Meter (ONETOUCH ULTRA2) monitoring kit UAD to test blood sugar Alcohol Swabs padm UAD to clean skin before testing blood sugar and injecting insulins. No current facility-administered medications on file prior to visit. 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 Social History Main Topics Smoking status: Former Smoker Packs/day: 1.00 Years: 28.00 Types: Cigarettes Start date: 1978 Quit date: 09/22/2005 Smokeless tobacco: Never Used Comment: Father smoked in childhood. 2nd spouse smoked in home. Alcohol use: No Drug use: No Sexual activity: No Social History Narrative 1 year in current home. No basement, 1 parakeet. Room A/C. Electric baseboard heat. Review of Symptoms REVIEW OF SYSTEMS GENERAL: No weight loss, malaise or fevers RESPIRATORY: Negative for cough, hemoptysis, wheezing, COPD, dyspnea or shortness of breath CARDIOVASCULAR: admits to intermittent atypical chest pain present for weeks to months. denies palpitations, leg swelling GI: No nausea, vomiting, or diarrhea SKIN: Negative for lesions, rash, and itching EXAM: BP 118/74 Pulse 68 Temp 36.6 ?C (97.8 ?F) (Temporal Artery) Resp 14 General Appearance: Well appearing, alert, in no acute distress, well-hydrated, well nourished.. Skin: Skin color, texture, turgor normal, no suspicious rashes or lesions. Lungs: Lungs clear to auscultation. No wheezing, rhonchi, rales. Heart: RRR without murmur, gallop, or rubs. No ectopy. Abdomen: Normal abdominal exam, Abdomen soft, non-tender. Bowel sounds normal. No masses, organomegaly. Extremities: No deformities, edema, skin discoloration, clubbing or cyanosis. Good capillary refill. . Health Maintenance List INFLUENZA(1) due on 05/23/2018 DILATED RETINAL EXAM due on 07/03/2018 BACILIO/ARB MED PRESCRIBED due on 06/22/2018 STATIN MED ADHERENCE due on 06/22/2018 DIABETES MED ADHERENCE due on 06/22/2018 HBA1C due on 11/19/2018 MAMMOGRAM due on 12/11/2018 LDL CHOLESTEROL due on 12/11/2018 URINE ALBUMIN:CREATININE RATIO due on 05/20/2019 DIABETIC FOOT EXAM due on 05/20/2019 ANNUAL PCP TEAM CHRONIC DISEASE VISIT due on 05/20/2019 SERUM CREATININE due on 05/20/2019 BP CONTROLLED (<130/80) due on 05/20/2019 COLORECTAL CANCER SCREENING,SEE MODIFIER due on 11/30/2019 PAP EVERY 5 YEARS due on 11/27/2021 HPV EVERY 5 YEARS due on 11/27/2021 DTAP,TDAP,TD(2 - Td) due on 10/02/2026 ONE PNEUMOVAX PRIOR TO AGE 65 Completed HEPATITIS C SCREENING Completed Data reviewed Component Latest Ref Rng AND Units 03/20/2018 04/13/2018 05/20/2018 WBC 3.70 - 11.00 k/uL 6.53 RBC 3.90 - 5.20 m/uL 3.92 Hemoglobin 11.5 - 15.5 g/dL 11.3 (L) Hematocrit 36.0 - 46.0 % 36.8 MCV 80.0 - 100.0 fL 93.9 MCH 26.0 - 34.0 pG 28.8 MCHC 30.5 - 36.0 g/dL 30.7 RDW-CV 11.5 - 15.0 % 17.2 (H) Platelet Count 150 - 400 k/uL 206 MPV 9.0 - 12.7 fL 11.5 Neut% % 61.6 Abs Neut (ANC) 1.45 - 7.50 k/uL 4.02 Lymph% % 24.0 Abs Lymph 1.00 - 4.00 k/uL 1.57 Bethel% % 11.0 Abs Bethel <0.87 k/uL 0.72 Eosin% % 2.8 Abs Eosin <0.46 k/uL 0.18 Baso% % 0.6 Abs Baso <0.11 k/uL 0.04 Nucleated Reds 0 /100 WBC 0.3 (H) Absolute nRBC <0.01 k/uL 0.02 (H) Diff Type Auto Diff Protein, Total 6.3 - 8.0 g/dL 6.6 7.1 Albumin 3.9 - 4.9 g/dL 3.7 (L) 3.7 (L) Calcium 8.5 - 10.2 mg/dL 8.6 8.8 8.8 Bilirubin, Total 0.2 - 1.3 mg/dL 0.7 0.6 Alkaline Phosphatase 32 - 117 U/L 40 44 AST 13 - 35 U/L 19 15 Glucose 74 - 99 mg/dL 116 (H) 177 (H) 174 (H) BUN 7 - 21 mg/dL 13 14 12 Creatinine 0.58 - 0.96 mg/dL 0.62 0.67 0.60 Sodium 136 - 144 mmol/L 141 142 143 Potassium 3.7 - 5.1 mmol/L 4.1 3.8 3.9 Chloride 97 - 105 mmol/L 97 95 (L) 99 CO2 22 - 30 mmol/L 34 (H) 34 (H) 26 Anion Gap 9 - 18 mmol/L 10 13 18 ALT 7 - 38 U/L 15 9 eGFR- >60 >60 >60 eGFR-All Other Races . >60 >60 >60 Sm Antibody <1.0 AI 0.4 SYNTHETIC STAPLE EXTRUDER Antibody <1.0 AI 0.3 SSA Antibody <1.0 AI <0.2 SSB Antibody <1.0 AI <0.2 Centromere Ab <1.0 AI <0.2 Scleroderma Ab, IgG <1.0 AI <0.2 Jossy 1 Antibody <1.0 AI <0.2 Ribosomal SYNTHETIC STAPLE EXTRUDER <1.0 AI <0.2 Chromatin Antibody <1.0 AI <0.2 c-ANCA Fluorescence Negative Negative p-ANCA Fluorescence Negative Negative Proteinase-3 Antibody <1.0 AI Test not performed on samples negative by immunofluorescence. Myeloperoxidase Antibody (MPO) <1.0 AI Test not performed on samples negative by immunofluorescence. Interpretation (ANCA) Negative for C-ANCA and P-ANCA by indirect immunofluorescence. Staff Review (ANCA) Staff review not performed on samples negative by immunofluorescence. BURT Negative Negative BURT Titer Negative Negative BURT Pattern Not applicable for negative result. Creatinine, Ur Random (UCRR) 20 - 300 mg/dL 66.1 Albumin, Urine Random 0.0 - 23.0 mg/L 16.2 Albumin/Creat Ratio 0 - 30 mg/g 25 BURT by EIA, Qual Negative Positive (A) BURT by EIA OD Ratio 10.4 Hemoglobin A1C 4.3 - 5.6 % 6.0 (H) Estimated Average Glucose mg/dL 126 Aldolase 1.2 - 7.6 U/L 4.8 Rheumatoid Factor <16 IU/mL <10 CRP <0.9 mg/dL 0.2 WSR 0 - 20 mm/hr 15 CK 42 - 196 U/L 31 (L) Scl-70 Abs, EIA <1.0 AI <0.2 DNA Antibody w/Confirmation <30 IU/mL 16 TSH 0.400 - 5.500 uU/mL 0.891 ASSESSMENT/PLAN: 1. PARESH treated with BiPAP - ICD9: 327.23, ICD10: G47.33 (primary diagnosis) Symptoms improved with Bipap. Advised she needs to set reasonable bed time and make sure she sleep with Bipap on, not falling asleep on couch. Discussed risks of non compliance. 2. Altered mental status, unspecified altered mental status type - ICD9: 780.97, ICD10: R41.82 Recurrent episode last week. Normal exam today. Suspect she may not be using Bipap as directed as she says. Discussed compliance with machine and is to call or return to the ED with repeat symptoms. 3. Type 2 diabetes mellitus with diabetic neuropathy, with long-term current use of insulin (HCC) - ICD9: 250.60, 357.2, V58.67, ICD10: E11.40, Z79.4 improved control - Increase Lantus 36 units QPM - Blood glucose monitoring on a three times a day schedule - Ophthalmology referral for eval/management of diabetic eye changes - Encouraged regular aerobic exercise and weight loss - Daily Asprin therapy recommended - Follow up in 2 months, sooner should any other issues arise. - INSULIN GLARGINE (U-100) 100 UNIT/ML (3 ML) SUBCUTANEOUS PEN 4. Atypical chest pain - ICD9: 786.59, ICD10: R07.89 Had cath earlier this year showing new occlusion of circumflex without need for stenting. Recommend follow up with cardiology for recurrent symptoms. Continue current regimen. 5. Nausea - ICD9: 787.02, ICD10: R11.0 - PROMETHAZINE 25 MG TABLET 6. Essential hypertension - ICD9: 401.9, ICD10: I10 - good control - Continue current medication(s) - Encouraged dietary sodium restriction/DASH diet - Recommended regular aerobic exercise. - Reviewed risks of HTN and principles of treatment - Goal of BP <140/90 7. Depression, unspecified depression type - ICD9: 311, ICD10: F32.9 Well controlled on current regimen. Continue Cymbalta. 8. Anxiety - ICD9: 300.00, ICD10: F41.9 Will add buspar to regimen and recheck in 2 months. - BUSPIRONE 5 MG TABLET 9. Need for vaccination - ICD9: V05.9, ICD10: Z23 - INFLUENZA VACCINE QUADRIVALENT AGE 3 YRS PLUS + IM I spent 40 minutes in the visit, with more than 50% of the total [id number] time of the visit in counseling / coordination of care. MD Clayton Floyd Ma 06/03/2018 3:45 PM Signed 63 year old female here for INACTIVATED INFLUENZA VACCINE. [id number] Season Patient is identified by name and date of : Yes [] CONTRAINDICATIONS color enhanced section Age less than 6 months? No Allergy to eggs, chicken, chicken feathers, or chicken dander? No Allergy to thimerosal (a preservative) or formaldehyde? No History of severe reaction to any vaccine component or a previous dose of influenza vaccination? No History of Guillain-Bellevue Syndrome within 6 weeks after a previous influenza vaccine? No Current moderate or severe illness? No Current temperature greater or equal to 100.4F? No History of Bone Marrow Transplant in past 6 months or solid organ transplant in the past 3 months ? No [] VERIFICATION color enhanced section Was the answer Yes for any of the above contraindications? No contraindications present. Acceptable to proceed with vaccine. Patient/guardian agrees the above answers are true to the best of their knowledge? Yes Flu vaccine information sheet given? Yes See immunization activity in [facility] for details of immunizations adminstered today. Patient age: [age] year old For The Flu Season 6-35 months old: Fluzone 0.25 ml - IM (Preservative Free) 3 years of age: Fluzone 0.5 ml - IM (Preservative Free) 3 years and older: Fluzone 0.5 ml- IM-(with Preservatives) 65+ years old: Fluzone High-Dose 0.5 ml - IM (Preservative Free) REMEMBER: If patient is less than 9 years of age and this is the first vaccine of Influenza to be received in any flu season, they should receive a second dose in one months time. Referring Provider: NANDA OLIVEIRA) [[id number]] Allergies As of Date: 06/03/2018 Noted Allergy Reaction ADHESIVE TAPE (ROSINS) 04/04/2015 5 - Intolerance Comments: Surgical tape leaves rash Irritates skin badly and blisters along with medical tape CATS 04/10/2016 14 - Other: See Comments Comments: Congested and itchy, difficulty breathing DOGS 04/10/2016 14 - Other: See Comments Comments: Congestion, sneezing, and difficulty breathing ORPHENADRINE 04/10/2016 16 - Unknown CAPSAICIN 03/02/2018 9 - Itching CIPROFLOXACIN 12/11/2011 14 - Other: See Comments Comments: Red, hot, itchy rash KEFLEX (CEPHALEXIN) 07/10/2016 4 - Hives Comments: Negative skin testing and successful completion of an oral amoxicillin challenge was completed on 03/02/2018. Cephalexin shares an almost identical R1 side chain to amoxicillin; therefore, it is unlikely that she would be at elevated risk for developing an IgE-mediated reaction (allergic/anaphylactic). If she should need this medication in the future, I would recommend giving the first dose in a supervised medical setting. If no reaction after 30 minutes, proceed with regular dosing. NIACIN 04/04/2015 16 - Unknown Comments: Pt states its niacin its niaspan REGLAN (METOCLOPRAMIDE HCL) 03/04/2017 14 - Other: See Comments Comments: Unable to sleep XANTHINES 10/18/2004 16 - Unknown ZOFRAN (ONDANSETRON HCL (PF)) 02/03/2018 9 - Itching Date Reviewed: 06/03/2018 Reviewed by: Clayton Serna Ma - Fully Assessed Reason for Visit: Recheck [92] Cmt: 2-3 week follow up Imm/Inj [58] Cmt: Flu Vaccine Reason For Visit History Recorded Primary Visit Diagnosis:PARESH treated with BiPAP [G47.33] Other Visit Diagnoses:Altered mental status, unspecified altered mental status type [R41.82] Type 2 diabetes mellitus with diabetic neuropathy, with long-term current use of insulin (HCC) [E11.40, Z79.4] Atypical chest pain [R07.89] Nausea [R11.0] Essential hypertension [I10] Depression, unspecified depression type [F32.9] Anxiety [F41.9] Need for vaccination [Z23] Order(s):promethazine (PHENERGAN) 25 mg tabletTake 1 tablet by mouth every 6 hours as needed.Disp: 20 tabletRfl: 0 INFLUENZA VACCINE QUADRIVALENT AGE 3 YRS PLUS + IM [[id number]] Order #: [id number] insulin glargine (LANTUS SOLOSTAR U-100 INSULIN) 100 unit/mL (3 mL) inpnInject 36 units subcutaneously twice dailyDisp: 3 PenRfl: 1 busPIRone (BUSPAR) 5 mg tabletTake 1.5 tablets by mouth twice daily.Disp: 90 tabletRfl: 3 Prescriptions as of 06/03/2018 Sig: PROMETHAZINE 25 MG TABLET Take 1 tablet by mouth every * INSULIN GLARGINE (U-100) 100 * Inject 36 units subcutaneousl* BUSPIRONE 5 MG TABLET Take 1.5 tablets by mouth twi* ALBUTEROL SULFATE HFA 90 MCG/* Inhale 2 Puffs as instructed * LYRICA 100 MG CAPSULE TAKE 1 CAPSULE BY MOUTH THREE* BIPAP Bilevel PAP 16/12 cmH2O with * OMEPRAZOLE 20 MG CAPSULE,MARIA EUGENIA* Take 1 capsule by mouth once * INSULIN LISPRO (U-200) 200 UN* Inject subcutaneously 14 unit* METOPROLOL TARTRATE 100 MG TA* TAKE 1 TABLET BY MOUTH TWICE * DULOXETINE 60 MG CAPSULE,MARIA EUGENIA* TAKE 1 CAPSULE BY MOUTH DAILY METFORMIN ER 500 MG TABLET,EX* TAKE 2 TABLETS BY MOUTH TWICE* ASPIRIN 81 MG TABLET,DELAYED * TAKE 1 TABLET BY MOUTH EVERY * CLAUDIA-KYLE 8.6 MG TABLET TAKE 1 TABLET BY MOUTH TWICE * STOOL SOFTENER 100 MG CAPSULE TAKE 1 CAPSULE BY MOUTH DAILY PSEUDOEPHEDRINE-GUAIFENESIN E* Take 1 tablet by mouth twice * ESTRADIOL 0.01% (0.1 MG/GRAM)* Apply pea-sized amount to per* COMPOUNDED PRESCRIPTION Please fit for BiPAP mask. ONETOUCH ULTRA BLUE TEST STRIP USE DIRECTED TO CHECK BLOO* ONETOUCH DELICA LANCETS 30 GA* USE TO CHECK BLOOD SUGAR 4-5 * COMPOUNDED PRESCRIPTION OCD Titration for portable ox* CAPSAICIN 0.075 % TOPICAL CRE* Apply 1 application to affect* ULTICARE PEN NEEDLE 31 GAUGE * USE DIRECTED. TO INJECT IN* VITAMIN C 500 MG TABLET TAKE 1 TABLET BY MOUTH DAILY FERROUS GLUCONATE 324 MG (38 * TAKE 1 TABLET BY MOUTH DAILY * ISOSORBIDE MONONITRATE ER 60 * Take 1.5 tablets by mouth onc* ATORVASTATIN 40 MG TABLET TAKE 1 TABLET BY MOUTH DAILY DILTIAZEM SR 180 MG 24 HR CAP TAKE 1 CAPSULE BY MOUTH EVERY* LEVOTHYROXINE 100 MCG TABLET TAKE 1 TABLET BY MOUTH EVERY * ELIQUIS 2.5 MG TABLET TAKE 1 TABLET BY MOUTH TWICE * NITROGLYCERIN 0.4 MG SUBLINGU* DISSOLVE 1 TAB UNDER THE TONG* GLUCOSE 4 GRAM CHEWABLE TABLET Take 4 tablets by mouth as ne* OXYGEN (HOME THERAPY) Inhale 3 L/min as instructed * FLUTICASONE 50 MCG/ACTUATION * Use 2 Sprays in each nostril * FUROSEMIDE 40 MG TABLET Take 1 tablet by mouth twice * COMPOUNDED PRESCRIPTION Evaluation for diabetic shoes* INCONTINENCE PAD, LINER, DISP* 1 Device as needed (urinary i* COMPOUNDED PRESCRIPTION BLOOD PRESSURE CUFF FOR HOME * BLOOD-GLUCOSE METER KIT UAD to test blood sugar ALCOHOL SWABS UAD to clean skin before test* Problem List As Of Date 06/03/2018 Noted Resolved SUBJECTIVE TINNITUS [H93.19] INVALID FOR* PARESH treated with BiPAP [G47.33] INVALID FOR* Hyperlipidemia [E78.5] INVALID FOR* Coronary disease [I25.10] INVALID FOR* Diabetes mellitus, type II ([facility]) [E11.9] INVALID FOR* Morbid obesity ([facility]) [E66.01] Hypothyroidism [E03.9] Anxiety [F41.9] Sleep apnea [G47.30] 02/14/2017 Essential hypertension [I10] Coronary artery disease of [place] lions artery of stoney* AF (paroxysmal atrial fibrillation) ([facility]) [I48.* COPD (chronic obstructive pulmonary disease) (H* GERD without esophagitis [K21.9] Dysphagia [R13.10] Constipation [K59.00] DM type 2 (diabetes mellitus, type 2) ([facility]) [E1* 02/14/2017 Shortness of breath [R06.02] 02/14/2017 Arthritis [M19.90] More... CHF (congestive heart failure) ([facility]) [I50.9] BPPV (benign paroxysmal positional vertigo) [H8*INVALID FOR* RLS (restless legs syndrome) [G25.81] INVALID FOR* Iron deficiency concern: RE RLS [E61.1] INVALID FOR* Tubular adenoma [D36.9] INVALID FOR* Incontinence [R32] More... Gastroparesis [K31.84] INVALID FOR* Pre-op testing [Z01.818] INVALID FOR* More... Hypercapnia [R06.89] INVALID FOR* S/P coronary artery stent placement [Z95.5] INVALID FOR* Stage 3 chronic kidney disease [N18.3] INVALID FOR* Depression [F32.9] INVALID FOR* Obesity, Class II, BMI 35-39.9 [E66.9] INVALID FOR* Prescriptions ordered this encounter Disp Refills Start End PROMETHAZINE 25 MG TABLET 20 t* 0 06/03/2018 Route: ORAL Sig: Take 1 tablet by mouth every 6 hours as needed. INSULIN GLARGINE (U-100) 100 UNIT/ML* 3 Pen 1 06/03/2018 Class: Med Update Sig: Inject 36 units subcutaneously twice daily BUSPIRONE 5 MG TABLET 90 t* 3 06/03/2018 Route: ORAL Sig: Take 1.5 tablets by mouth twice daily. Medications Discontinued During This Encounter promethazine (PHENERGAN) 25 mg tablet 20 t* 0 02/20/2018 06/03/2018 Route: ORAL Sig: Take 1 tablet by mouth every 6 hours as needed. Disc: Reason for discontinue is not on file. insulin glargine (LANTUS SOLOSTAR U-* 3 Pen 1 05/20/2018 06/03/2018 Sig: Inject 30 units subcutaneously twice daily Disc: Reason for discontinue is not on file. Disposition: Return in about 2 months (around 08/03/2018). Follow-up and Disposition History Recorded Encounter Status:Closed by NANDA OLIVEIRA MD on 06/03/18 MELCHOR Observed: 06/03/2018 Status: COMPLETED Source: RUSSELL 12:00 AM [facility] REPOSITORY Patient Outreach ([facility]) TAMIA PANDA ([id number]) 1955 F Date Time Provider Department 06/03/18 SAAD SILVESTRE) [facility] During your visit today, we recorded the following information about you: Saad Silvestre RN 06/03/2018 12:00 PM Addendum PRIMARY CARE COORDINATION IN OFFICE VISIT WITH PCP Patient has been identified by name and date of . PCP Assessment/Plan: Reviewed PCP plan with patient using [employer] Discussed oxygen and Bipap use. Pt doesn't have oxygen on today, however sister states the tubing was broken so they couldn't fill it and DME is coming to fix it today Discussed BS, increasing insulin, eating healthy DM diet and PCC will call for BS in 2-3 weeks. Instructed to call PCC if she has BS 70 or lower, verbalized understanding. Discussed moving into new apartment. Sisters are taking patient to look for apartments this week PCC Plan of Care: Patient goals: Pt will wear oxygen at all times and Bipap when sleeping Pt will increase insulin dose, will eat healthy DM diet and check BS appropriately Next Office Visit: Visit date not found Plan For Next Call: 2 weeks Saad Silvestre RN June 03, 2018 Allergies As of Date: 06/03/2018 Noted Allergy Reaction ADHESIVE TAPE (ROSINS) 04/04/2015 5 - Intolerance Comments: Surgical tape leaves rash Irritates skin badly and blisters along with medical tape CATS 04/10/2016 14 - Other: See Comments Comments: Congested and itchy, difficulty breathing DOGS 04/10/2016 14 - Other: See Comments Comments: Congestion, sneezing, and difficulty breathing ORPHENADRINE 04/10/2016 16 - Unknown CAPSAICIN 03/02/2018 9 - Itching CIPROFLOXACIN 12/11/2011 14 - Other: See Comments Comments: Red, hot, itchy rash KEFLEX (CEPHALEXIN) 07/10/2016 4 - Hives Comments: Negative skin testing and successful completion of an oral amoxicillin challenge was completed on 03/02/2018. Cephalexin shares an almost identical R1 side chain to amoxicillin; therefore, it is unlikely that she would be at elevated risk for developing an IgE-mediated reaction (allergic/anaphylactic). If she should need this medication in the future, I would recommend giving the first dose in a supervised medical setting. If no reaction after 30 minutes, proceed with regular dosing. 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-In Office Visit [4693] Prescriptions as of 06/03/2018 Sig: PROMETHAZINE 25 MG TABLET Take 1 tablet by mouth every * INSULIN GLARGINE (U-100) 100 * Inject 36 units subcutaneousl* BUSPIRONE 5 MG TABLET Take 1.5 tablets by mouth twi* ALBUTEROL SULFATE HFA 90 MCG/* Inhale 2 Puffs as instructed * LYRICA 100 MG CAPSULE TAKE 1 CAPSULE BY MOUTH THREE* BIPAP Bilevel PAP 16/12 cmH2O with * OMEPRAZOLE 20 MG CAPSULE,MARIA EUGENIA* Take 1 capsule by mouth once * INSULIN LISPRO (U-200) 200 UN* Inject subcutaneously 14 unit* METOPROLOL TARTRATE 100 MG TA* TAKE 1 TABLET BY MOUTH TWICE * DULOXETINE 60 MG CAPSULE,MARIA EUGENIA* TAKE 1 CAPSULE BY MOUTH DAILY METFORMIN ER 500 MG TABLET,EX* TAKE 2 TABLETS BY MOUTH TWICE* ASPIRIN 81 MG TABLET,DELAYED * TAKE 1 TABLET BY MOUTH EVERY * CLAUDIA-KYLE 8.6 MG TABLET TAKE 1 TABLET BY MOUTH TWICE * STOOL SOFTENER 100 MG CAPSULE TAKE 1 CAPSULE BY MOUTH DAILY PSEUDOEPHEDRINE-GUAIFENESIN E* Take 1 tablet by mouth twice * ESTRADIOL 0.01% (0.1 MG/GRAM)* Apply pea-sized amount to per* COMPOUNDED PRESCRIPTION Please fit for BiPAP mask. ONETOUCH ULTRA BLUE TEST STRIP USE DIRECTED TO CHECK BLOO* ONETOUCH DELICA LANCETS 30 GA* USE TO CHECK BLOOD SUGAR 4-5 * COMPOUNDED PRESCRIPTION OCD Titration for portable ox* CAPSAICIN 0.075 % TOPICAL CRE* Apply 1 application to affect* ULTICARE PEN NEEDLE 31 GAUGE * USE DIRECTED. TO INJECT IN* VITAMIN C 500 MG TABLET TAKE 1 TABLET BY MOUTH DAILY FERROUS GLUCONATE 324 MG (38 * TAKE 1 TABLET BY MOUTH DAILY * ISOSORBIDE MONONITRATE ER 60 * Take 1.5 tablets by mouth onc* ATORVASTATIN 40 MG TABLET TAKE 1 TABLET BY MOUTH DAILY DILTIAZEM SR 180 MG 24 HR CAP TAKE 1 CAPSULE BY MOUTH EVERY* LEVOTHYROXINE 100 MCG TABLET TAKE 1 TABLET BY MOUTH EVERY * ELIQUIS 2.5 MG TABLET TAKE 1 TABLET BY MOUTH TWICE * NITROGLYCERIN 0.4 MG SUBLINGU* DISSOLVE 1 TAB UNDER THE TONG* GLUCOSE 4 GRAM CHEWABLE TABLET Take 4 tablets by mouth as ne* OXYGEN (HOME THERAPY) Inhale 3 L/min as instructed * FLUTICASONE 50 MCG/ACTUATION * Use 2 Sprays in each nostril * FUROSEMIDE 40 MG TABLET Take 1 tablet by mouth twice * COMPOUNDED PRESCRIPTION Evaluation for diabetic shoes* INCONTINENCE PAD, LINER, DISP* 1 Device as needed (urinary i* COMPOUNDED PRESCRIPTION BLOOD PRESSURE CUFF FOR HOME * BLOOD-GLUCOSE METER KIT UAD to test blood sugar ALCOHOL SWABS UAD to clean skin before test* Problem List As Of Date 06/03/2018 Noted Resolved SUBJECTIVE TINNITUS [H93.19] INVALID FOR* PARESH treated with BiPAP [G47.33] INVALID FOR* Hyperlipidemia [E78.5] INVALID FOR* Coronary disease [I25.10] INVALID FOR* Diabetes mellitus, type II ([facility]) [E11.9] INVALID FOR* Morbid obesity ([facility]) [E66.01] Hypothyroidism [E03.9] Anxiety [F41.9] Sleep apnea [G47.30] 02/14/2017 Essential hypertension [I10] Coronary artery disease of [place] artery of stoney* AF (paroxysmal atrial fibrillation) ([facility]) [I48.* COPD (chronic obstructive pulmonary disease) (H* GERD without esophagitis [K21.9] Dysphagia [R13.10] Constipation [K59.00] DM type 2 (diabetes mellitus, type 2) ([facility]) [E1* 02/14/2017 Shortness of breath [R06.02] 02/14/2017 Arthritis [M19.90] More... CHF (congestive heart failure) ([facility]) [I50.9] BPPV (benign paroxysmal positional vertigo) [H8*INVALID FOR* RLS (restless legs syndrome) [G25.81] INVALID FOR* Iron deficiency concern: RE RLS [E61.1] INVALID FOR* Tubular adenoma [D36.9] INVALID FOR* Incontinence [R32] More... Gastroparesis [K31.84] INVALID FOR* Pre-op testing [Z01.818] INVALID FOR* More... Hypercapnia [R06.89] INVALID FOR* S/P coronary artery stent placement [Z95.5] INVALID FOR* Stage 3 chronic kidney disease [N18.3] INVALID FOR* Depression [F32.9] INVALID FOR* Obesity, Class II, BMI 35-39.9 [E66.9] INVALID FOR* Encounter Status:Closed by SAAD SILVESTRE on 06/03/18 CNSW Observed: 06/03/2018 Status: COMPLETED Source: RUSSELL 12:00 AM [facility] REPOSITORY Social Work ([facility]) TAMIA PANDA ([id number]) 1955 F Date Time Provider Department 06/03/18 JESSICA LOBO) [facility] During your visit today, we recorded the following information about you: JENAE Norwood 06/03/2018 12:35 PM Signed Aroldo spoke with patient and family in regards to rental deposit assistance agencies. Aroldo advised patient to check with [facility] [employer] and [employer] to see if they have financial assistance for deposit. Patient looking at [facility] [employer] has [employer] so her rent assistance is provided through [employer]. Allergies As of Date: 06/03/2018 Noted Allergy Reaction ADHESIVE TAPE (ROSINS) 04/04/2015 5 - Intolerance Comments: Surgical tape leaves rash Irritates skin badly and blisters along with medical tape CATS 04/10/2016 14 - Other: See Comments Comments: Congested and itchy, difficulty breathing DOGS 04/10/2016 14 - Other: See Comments Comments: Congestion, sneezing, and difficulty breathing ORPHENADRINE 04/10/2016 16 - Unknown CAPSAICIN 03/02/2018 9 - Itching CIPROFLOXACIN 12/11/2011 14 - Other: See Comments Comments: Red, hot, itchy rash KEFLEX (CEPHALEXIN) 07/10/2016 4 - Hives Comments: Negative skin testing and successful completion of an oral amoxicillin challenge was completed on 03/02/2018. Cephalexin shares an almost identical R1 side chain to amoxicillin; therefore, it is unlikely that she would be at elevated risk for developing an IgE-mediated reaction (allergic/anaphylactic). If she should need this medication in the future, I would recommend giving the first dose in a supervised medical setting. If no reaction after 30 minutes, proceed with regular dosing. NIACIN 04/04/2015 16 - Unknown Comments: Pt states its niacin its niaspan REGLAN (METOCLOPRAMIDE HCL) 03/04/2017 14 - Other: See Comments Comments: Unable to sleep XANTHINES 10/18/2004 16 - Unknown ZOFRAN (ONDANSETRON HCL (PF)) 02/03/2018 9 - Itching Date Reviewed: 06/03/2018 Reviewed by: Clayton Serna Ma - Fully Assessed Prescriptions as of 06/03/2018 Sig: PROMETHAZINE 25 MG TABLET Take 1 tablet by mouth every * INSULIN GLARGINE (U-100) 100 * Inject 36 units subcutaneousl* BUSPIRONE 5 MG TABLET Take 1.5 tablets by mouth twi* ALBUTEROL SULFATE HFA 90 MCG/* Inhale 2 Puffs as instructed * LYRICA 100 MG CAPSULE TAKE 1 CAPSULE BY MOUTH THREE* BIPAP Bilevel PAP 16/12 cmH2O with * OMEPRAZOLE 20 MG CAPSULE,MARIA EUGENIA* Take 1 capsule by mouth once * INSULIN LISPRO (U-200) 200 UN* Inject subcutaneously 14 unit* METOPROLOL TARTRATE 100 MG TA* TAKE 1 TABLET BY MOUTH TWICE * DULOXETINE 60 MG CAPSULE,MARIA EUGENIA* TAKE 1 CAPSULE BY MOUTH DAILY METFORMIN ER 500 MG TABLET,EX* TAKE 2 TABLETS BY MOUTH TWICE* ASPIRIN 81 MG TABLET,DELAYED * TAKE 1 TABLET BY MOUTH EVERY * CLAUDIA-KYLE 8.6 MG TABLET TAKE 1 TABLET BY MOUTH TWICE * STOOL SOFTENER 100 MG CAPSULE TAKE 1 CAPSULE BY MOUTH DAILY PSEUDOEPHEDRINE-GUAIFENESIN E* Take 1 tablet by mouth twice * ESTRADIOL 0.01% (0.1 MG/GRAM)* Apply pea-sized amount to per* COMPOUNDED PRESCRIPTION Please fit for BiPAP mask. ONETOUCH ULTRA BLUE TEST STRIP USE DIRECTED TO CHECK BLOO* ONETOUCH DELICA LANCETS 30 GA* USE TO CHECK BLOOD SUGAR 4-5 * COMPOUNDED PRESCRIPTION OCD Titration for portable ox* CAPSAICIN 0.075 % TOPICAL CRE* Apply 1 application to affect* ULTICARE PEN NEEDLE 31 GAUGE * USE DIRECTED. TO INJECT IN* VITAMIN C 500 MG TABLET TAKE 1 TABLET BY MOUTH DAILY FERROUS GLUCONATE 324 MG (38 * TAKE 1 TABLET BY MOUTH DAILY * ISOSORBIDE MONONITRATE ER 60 * Take 1.5 tablets by mouth onc* ATORVASTATIN 40 MG TABLET TAKE 1 TABLET BY MOUTH DAILY DILTIAZEM SR 180 MG 24 HR CAP TAKE 1 CAPSULE BY MOUTH EVERY* LEVOTHYROXINE 100 MCG TABLET TAKE 1 TABLET BY MOUTH EVERY * ELIQUIS 2.5 MG TABLET TAKE 1 TABLET BY MOUTH TWICE * NITROGLYCERIN 0.4 MG SUBLINGU* DISSOLVE 1 TAB UNDER THE TONG* GLUCOSE 4 GRAM CHEWABLE TABLET Take 4 tablets by mouth as ne* OXYGEN (HOME THERAPY) Inhale 3 L/min as instructed * FLUTICASONE 50 MCG/ACTUATION * Use 2 Sprays in each nostril * FUROSEMIDE 40 MG TABLET Take 1 tablet by mouth twice * COMPOUNDED PRESCRIPTION Evaluation for diabetic shoes* INCONTINENCE PAD, LINER, DISP* 1 Device as needed (urinary i* COMPOUNDED PRESCRIPTION BLOOD PRESSURE CUFF FOR HOME * BLOOD-GLUCOSE METER KIT UAD to test blood sugar ALCOHOL SWABS UAD to clean skin before test* Problem List As Of Date 06/03/2018 Noted Resolved SUBJECTIVE TINNITUS [H93.19] INVALID FOR* PARESH treated with BiPAP [G47.33] INVALID FOR* Hyperlipidemia [E78.5] INVALID FOR* Coronary disease [I25.10] INVALID FOR* Diabetes mellitus, type II ([facility]) [E11.9] INVALID FOR* Morbid obesity ([facility]) [E66.01] Hypothyroidism [E03.9] Anxiety [F41.9] Sleep apnea [G47.30] 02/14/2017 Essential hypertension [I10] Coronary artery disease of port lions artery of stoney* AF (paroxysmal atrial fibrillation) ([facility]) [I48.* COPD (chronic obstructive pulmonary disease) (H* GERD without esophagitis [K21.9] Dysphagia [R13.10] Constipation [K59.00] DM type 2 (diabetes mellitus, type 2) ([facility]) [E1* 02/14/2017 Shortness of breath [R06.02] 02/14/2017 Arthritis [M19.90] More... CHF (congestive heart failure) ([facility]) [I50.9] BPPV (benign paroxysmal positional vertigo) [H8*INVALID FOR* RLS (restless legs syndrome) [G25.81] INVALID FOR* Iron deficiency concern: RE RLS [E61.1] INVALID FOR* Tubular adenoma [D36.9] INVALID FOR* Incontinence [R32] More... Gastroparesis [K31.84] INVALID FOR* Pre-op testing [Z01.818] INVALID FOR* More... Hypercapnia [R06.89] INVALID FOR* S/P coronary artery stent placement [Z95.5] INVALID FOR* Stage 3 chronic kidney disease [N18.3] INVALID FOR* Depression [F32.9] INVALID FOR* Obesity, Class II, BMI 35-39.9 [E66.9] INVALID FOR* Encounter Status:Closed by JESSICA GHOTRA on 06/03/18 CONSULTATION Observed: 05/24/2018 Status: F Source: [place] 1:02 PM [facility] REPOSITORY [facility] Medical Records Department [address] [place] [address] Consultation 05/17/18 1512 MR#: [id number] Acct: [id number] Name: TAMIA PANDA Rep #: [id number] : [id number] 63 From: Ricardo Kamara MD PCP: Bhupendra Oliveira MD Status: DIS IN Y Location: [place] [address] Reason for Consult Date of Consultation: 05/17/18 Reason for Consultation: Stroke team History of Present Illness: The patient is a 63 year old who was normal at about 1030 this morning, laid down for a nap, awoke around 1130 with language abnormality and was brought to the emergency department. In the emergency department she was found to have language abnormality and the stroke team was called. I discussed this with the ER physician. It was discovered that she had atrial fibrillation and had taken her Eliquis today. It was felt to be a contraindication for TPA. CTA of the head was performed which was unremarkable. CT of the brain was also unremarkable. No further history is available. Past Medical History Past Medical History (Chronic Problems): Chronic Problems Paroxysmal A-fib (Chronic) Diabetes mellitus type 2 in obese (Chronic) Coronary arteriosclerosis (Chronic) cath 05/2015 mild-moderate disease medical therapy recommended Hypothyroidism (Chronic) Hyperlipemia (Chronic) GERD (gastroesophageal reflux disease) (Chronic) Hypertension (Chronic) COPD (chronic obstructive pulmonary disease) (Chronic) Chronic respiratory insufficiency (Chronic) On home oxygen at night S/P PTCA (percutaneous transluminal coronary angioplasty) (Chronic) PARESH (obstructive sleep apnea) (Chronic) Allergies ciprofloxacin [From Cipro] Allergy (Verified 05/17/18 14:15) Hives latex Allergy (Verified 05/17/18 14:15) matos me niacin [From Niaspan Extended-Release] Allergy (Verified 05/17/18 14:15) Hives ondansetron [From Zofran] Allergy (Verified 05/17/18 14:15) Unknown Xanthines Allergy (Verified 05/17/18 14:15) Unknown Penicillins Adverse Reaction (Mild, Verified 05/17/18 14:15) Itching/redness orphenadrine citrate [From Norgesic] Adverse Reaction (Verified 05/17/18 14:15) groggy medical tape Adverse Reaction (Uncoded 05/17/18 14:15) blisters Home Medications: Ambulatory Orders Medication Instructions Recorded Albuterol Inhaler [Ventolin Hfa] 2 puff INHALATION Q4H PRN PRN 02/03/18 Aspirin [Aspirin, Baby] 81 mg PO DAILY@0800 02/03/18 Surgical History: angioplasty, cholecystectomy, herniorrhaphy, hysterectomy, - - tubal ligation. Psychiatric History: No pertinent psych hx LOG CUT OFF SAWYER History: No pertinent LOG CUT OFF SAWYER history Smoking Status: Former smoker - *Family History Maternal History Items: No pertinent history Paternal History Items: Heart Disease, Stroke - age 62 Offspring History Items: No pertinent history - 5 children, 32 grand children and great grandchildren Review of Systems Unable to obtain accurate/complete ROS d/t: The patient is hypersomnolent. Patient Problems: Active and Suspected Problems Acute metabolic encephalopathy (Acute) Objective: The patient appears to be hypersomnolent on examination. I am able to arouse her briefly. She is able to tell me her name There is no facial asymmetry. Pupils are equal and reflective bilaterally visual movements are intact . She withdraws and grimaces to noxious stimuli symmetrically. She is able to hold her hands off of the bed without drift bilaterally and is able to hold her legs up off the bed bilaterally without drift She squeezes and releases to command symmetrically. - Physical Exam Vital Signs Temp Pulse Resp BP Pulse Ox 37.0 C 58 L 19 H 114/61 98 05/17/18 12:54 05/17/18 15:10 05/17/18 15:10 05/17/18 15:10 05/17/18 15:10 Current Home Med List Medication Instructions Recorded Confirmed Type Albuterol Inhaler [Ventolin Hfa] 2 puff INHALATION Q4H PRN PRN 02/03/18 05/17/18 History Laboratory Results - last 24 hr WBC 7.7 WBC RBC Hgb Hct MCV MCH MCHC RDW RDW Differential Plt Count MPV Immature Gran % (Auto) Neut % (Auto) Lymph % (Auto) Assessment/Plan All Active Problems Mental status alteration (Acute) Acute on chronic respiratory failure with hypoxia and hypercapnia (Acute) COPD exacerbation (Acute) Possible pneumonia (Acute) Atrial fibrillation with RVR (Acute) Hypoglycemia (Acute) Acute metabolic encephalopathy (Acute) COPD with moderate acute bronchitis (Acute) Acute hypoglycemia (Acute) Abnormal nuclear stress test (Resolved) Pneumonia (Resolved) Septic shock (Resolved) Impression: The patient's examination is consistent with hypersomnolence. This may be on the basis of her low blood sugar. CT and CTA of the head were both reviewed and are normal. Recommend further evaluation for metabolic causes. Recommend MRI of the brain and MRA of the head and neck. Continue Eliquis. 05/24/18 1302 <Electronically signed by Ricardo Kamara MD> Date Ricardo Kamara MD Cosigner Signature (if applicable): Date CC: Bhupendra Oliveira MD; Ricardo Kamara MD Signed ALBUMIN/CREAT RATIO Collected: 05/20/2018 Status: F Source: [facility] 4:57 PM [facility] REPOS[facility] TYPE CODE TESTS RESULT OUT OF REFERENCE UNITS RANGE LAB UCRR 20-300 mg/dL Creatinine,Ur 66.1 ine,Ran LAB UALBR 0.0-23.0 mg/L Albumin Urine 16.2 Random LAB UALBCR 0-30 mg/g Albumin/Creat 25 Ratio Result Comment: 30 to 300 mg/g indicates an increased risk for diabetic nephropathy. Greater than 300 mg/g is consistent with clinical nephropathy. (Am J Kidney Disease 1995, 25:107) Performed By: #### UACR #### [facility] [address] [place], [place] [address] COMP METABOLIC PANEL Collected: 05/20/2018 Status: F Source: [place] 4:47 PM [facility] REPOSITORY TYPE CODE TESTS RESULT OUT OF REFERENCE UNITS RANGE LAB TP 6.3-8.0 g/dL Protein, Total 7.1 LAB ALB 3.9-4.9 g/dL Low Albumin 3.7 LAB CA 8.5-10.2 mg/dL Calcium, Total 8.8 LAB TBIL 0.2-1.3 mg/dL Bilirubin, Total 0.6 LAB ALKP 32-117 U/L Alkaline Phosphatase 44 LAB AST 13-35 U/L AST 15 LAB GLU 74-99 mg/dL Glucose High 174 Result Comment: The [place] Diabetes Association (ADA) provides guidance for cutoff values for fasting glucose and random glucose. The ADA defines fasting as no caloric intake for at least 8 hours. Fas ting plasma glucose results between 100 to 125 mg/dL indicate increased risk for diabetes (prediabetes). Fasting plasma glucose results greater than or equal to 126 mg/dL meet the criteria for diagnosis of diabetes. In the absence of unequivocal hyperglycemia, results should be confirmed by repeat testing. In a patient with classic symptoms of hyperglycemia or hyperglycemic crisis, random plasma glucose results greater than or equal to 200 mg/dL meet the criteria for diagnosis of diabetes. Reference: Standards of Medical Care in Diabetes 2016, [place] Diabetes Association. Diabetes Care. 2016.39(Suppl 1). LAB BUN 7-21 mg/dL BUN 12 LAB CRET 0.58-0.96 mg/dL Creatinine 0.60 LAB NA 136-144 mmol/L Sodium 143 LAB K 3.7-5.1 mmol/L Potassium 3.9 LAB CL 97-105 mmol/L Chloride 99 LAB CO2 22-30 mmol/L CO2 26 LAB AGAP 9-18 mmol/L Anion Gap 18 LAB ALT 7-38 U/L ALT 9 LAB GFRAA eGFR- Amer. >60 LAB GFRNAA . eGFR-All Other Races >60 Result Comment: eGFR (Estimated GFR) Units of measure: mL/min/1.73 meters squared eGFR is derived from the reexpressed MDRD Study equation using the following parameters: serum creatinine, age, gender and race. The creatinine assay has been calibrated to be traceable to IDMS. An eGFR <60 mL/min/1.73m2 for >3 months is consistent with chronic kidney disease. Refer to KDOQI guidelines for clinical interpretation. In patients with unstable renal function, e.g. those with acute kidney injury, the eGFR may not accurately reflect actual GFR. Performed By: #### CMP, TSH, HBA1C #### [facility] [address] [place] [address] TSH Collected: 05/20/2018 Status: F Source: [place] 4:47 PM [facility] REPOSITORY TYPE CODE TESTS RESULT OUT OF RANGE REFERENCE UNITS LAB TSH 0.400-5.500 uU/mL TSH 0.891 Performed By: #### CMP, TSH, HBA1C #### [facility] [address] [place] [address] HEMOGLOBIN A1C Collected: 05/20/2018 Status: F Source: [place] 4:47 PM [facility] REPOSITORY TYPE CODE TESTS RESULT OUT OF REFERENCE UNITS RANGE LAB HGBA1C 4.3-5.6 % High Hemoglobin A1c 6.0 LAB HBA0 mg/dL Est. Average Glucose 126 Result Comment: eAG: (Estimated average glucose) is a calculated value from HgbA1c and is software sales representative of the average blood glucose level in the last 2-3 month period. Performed By: #### CMP, TSH, HBA1C #### [facility] [address] [place] [address] PROGRESS Observed: 05/20/2018 Status: COMPLETED Source: [facility] 3:50 PM [facility] REPOSITORY O ID: [id number] Author: Nanda Rodriguez) Brian Service: (none) Author Type: Physician Type: Progress Notes Filed: 05/20/2018 10:07 PM Note Text: Chief Complaint Patient presents with: Hospital Follow Up HPI Tamia Panda is a 63 year old female who presents here today for Hospital Discharge Follow up. Accompanied today by sister Ivy. Patient presented to the ED on 05/17 after family found her lethargic and confused at home. In the past she had been admitted with similar symptoms due to hypercapnia as she has been without Bipap at home despite following up with Dr. Middleton recently for sleep study. Found to be hypoglycemic in the ED with glucose in the 30s And ABG showed elevated CO2. CXr, CT brain, CTA head were all negative. Neuro consulted and initiated stroke workup, admitted to [facility] for monitoring with order for D50 and Bipap. The next morning patient was improved, without complaint, and requested to be discharged home. MRI brain and carotid US negative. Refused SNF despite losing her home soon as her sons have been living with her when she only lives in single bedroom apartment. Long acting insulin cut in half due to hypoglycemia and placed on mechanical soft diet after barium swallow revealed mild to moderate dysphagia. Supplier able to bring in a bipap machine for her before she was discharged and instructed on how to use. Discharged home in stable condition on 05/18. Since discharge, patient did not use the Bipap mask the first night because she didn't understand the hospital instructions. Last night was able to get the machine to work. Unsure of settings for machine at home, but knows she has 2L of oxygen at night. Mask too tight last night, so Kurt was out today to adjust mask and showed her how to operate the machine correctly. Radha states that since her Lantus was cut down to 26 units BID her sugars have been elevated into the 300s occasionally with typical readings in the 200s. Checking glucose readings 3-4 times per day as instructed and taking other medications as prescribed. Patient did not bring her readings with her today. Discussed increasing lantus today. Discussed patient's living situation and she says she has looked into assisted living and was told there was nowhere to rent, so has been searching for an apartment. Patient will lose her house in 2 days. Has plans at this time to stay with other sister Mery, but only for 1-2 weeks. Discussed assisted living, but patient is hesitant. Discussed social work referral to help with housing. Past medical history, appointments, medications, allergies reviewed. Previous Medical History PAST MEDICAL HISTORY Diagnosis Date - Acute chronic obstructive pulmonary disease with respiratory failure (HCC) - AF (paroxysmal atrial fibrillation) (HCC) - Anxiety - Arthritis Seeing Dr Knapic - Cervical cancer (HCC) hysterectomy - CHF (congestive heart failure) ([facility]) - Chronic back pain Seeing Dr. Wallace - Constipation - COPD (chronic obstructive pulmonary disease) ([facility]) DME [facility] for BiPAP and [facility] [place] for O2. - Coronary atherosclerosis of port lions coronary artery Previously seeing Dr. Sosa - DDD (degenerative disc disease), lumbar - DM type 2 (diabetes mellitus, type 2) ([facility]) Seeing Dr. Foley for podiatry - DVT (deep venous thrombosis) ([facility]) Post op INA, BSO. - Dysphagia Seeing Dr. Beaulieu - Emphysema lung ([facility]) - Essential hypertension - Functional dyspepsia - Gastroparesis 2017 mild - GERD without esophagitis - Headache - History of colon polyps 11/28/2016 - Hyperlipidemia - Hypothyroidism - Incontinence Seeing Dr. Chapman - Lung nodule 02/[address] in 3 months - Morbid obesity ([facility]) - Muscle weakness - Nausea - PARESH on CPAP DME [facility] for BiPAP and [facility] [place] for O2. - PE (pulmonary thromboembolism) ([facility]) Post op INA/BSO. - Pneumonia - RLS (restless legs syndrome) - Shortness of breath - Sleep apnea using oxygen currently, not on CPAP - Unsteadiness on feet - Wheezing Previous Surgical History PAST SURGICAL HISTORY Procedure Laterality Date - CHOLECYSTECTOMY - COLONOS W/REM POLYP SNARE 11/28/2016 Repeat 2019 - COLONOSCOPY Has had multiple in the past with polyps, cannot remember dates - EGD W/O [facility] SPECIMEN W/BX 11/28/2016 - HERNIA REPAIR HX multiple - KNEE SURGERY HX Left x3 for torn cartilage - NASAL SURGERY PROCEDURE sinus - TOTAL ABDOM HYSTERECTOMY 1987 Cervical cancer - TUBAL LIGATION HX - WRIST SURGERY HX Right ganglion cyst removal x2 Family History FAMILY HISTORY Problem Relation Age of Onset - Coronary Artery Disease Mother - Coronary Artery Disease Father - Asthma Brother - Coronary Artery Disease Brother - Diabetes Sister - Hypertension Sister - Diabetes Sister - Heart Sister - Allergies Sister - Asthma Sister - Allergies Sister - Emphysema Sister Early stages - COPD Paternal Uncle Patient Allergies ALLERGIES Allergen Reactions - Adhesive Tape (Adrienne* Intolerance Surgical tape leaves rash Irritates skin badly and blisters along with medical tape - Cats Other: See Comments Congested and itchy, difficulty breathing - Dogs Other: See Comments Congestion, sneezing, and difficulty breathing - Orphenadrine Unknown - Capsaicin Itching - Ciprofloxacin Other: See Comments Red, hot, itchy rash - Keflex [Cephalexin] Hives Negative skin testing and successful completion of an oral amoxicillin challenge was completed on 03/02/2018. Cephalexin shares an almost identical R1 side chain to amoxicillin; therefore, it is unlikely that she would be at elevated risk for developing an IgE-mediated reaction (allergic/anaphylactic). If she should need this medication in the future, I would recommend giving the first dose in a supervised medical setting. If no reaction after 30 minutes, proceed with regular dosing. - Niacin Unknown Pt states its niacin its niaspan - Reglan [Metoclopram* Other: See Comments Unable to sleep - Xanthines Unknown - Zofran [Ondansetron* Itching Current Medications Current Outpatient Prescriptions on File Prior to Visit: albuterol HFA (PROAIR HFA) 90 mcg/actuation inhaler Inhale 2 Puffs as instructed every 4 hours as needed for Wheezing/Shortness of Breath. LYRICA 100 mg capsule TAKE 1 CAPSULE BY MOUTH THREE TIMES A DAY BIPAP Bilevel PAP 16/12 cmH2O with 2 LPM oxygen bleed in, mask, tubing, filters, heated humidity, lifetime supplies. Dx: G47.33, G47.39. insulin glargine (LANTUS SOLOSTAR U-100 INSULIN) 100 unit/mL (3 mL) inpn Inject 54 units subcutaneously twice daily omeprazole (PRILOSEC) 20 mg capsule Take 1 capsule by mouth once daily. insulin glargine (LANTUS SOLOSTAR U-100 INSULIN) 100 unit/mL (3 mL) inpn Inject 56 Units subcutaneously twice daily. insulin lispro (HUMALOG KWIKPEN INSULIN) 200 unit/mL (3 mL) injection Inject subcutaneously 14 units with breakfast, 22 units with lunch, and 24 units with dinner metoprolol tartrate, short acting, (LOPRESSOR) 100 mg tablet TAKE 1 TABLET BY MOUTH TWICE A DAY DULoxetine (CYMBALTA) 60 mg capsule TAKE 1 CAPSULE BY MOUTH DAILY metFORMIN ER (GLUCOPHAGE XR) 500 mg 24 hr tablet TAKE 2 TABLETS BY MOUTH TWICE A DAY promethazine (PHENERGAN) 25 mg tablet Take 1 tablet by mouth every 6 hours as needed. aspirin, enteric coated (ASPIRIN, ENTERIC COATED) 81 mg EC tablet TAKE 1 TABLET BY MOUTH EVERY MORNING CLAUDIA-KYLE 8.6 mg tab TAKE 1 TABLET BY MOUTH TWICE A DAY STOOL SOFTENER 100 mg capsule TAKE 1 CAPSULE BY MOUTH DAILY Pseudoephedrine-guaiFENesin (MUCINEX D MAXIMUM STRENGTH) 120- 1,200 mg Tb12 Take 1 tablet by mouth twice daily. estradiol (ESTRACE) 0.01 % (0.1 mg/gram) vaginal cream Apply pea-sized amount to perineum and 1 applicator vaginally Mon, Wed, Fri for atrophic vaginitis. COMPOUNDED PRESCRIPTION Please fit for BiPAP mask. ONETOUCH ULTRA BLUE TEST STRIP test strip USE DIRECTED TO CHECK BLOOD SUGAR 4-5 TIMES DAILY ONETOUCH DELICA LANCETS 30 gauge misc USE TO CHECK BLOOD SUGAR 4-5 TIMES DALIY COMPOUNDED PRESCRIPTION OCD Titration for portable oxygen concentrator Oxygen Flow Rate between 2-6 liters. To keep oxygen saturation at or above 92%. mupirocin (BACTROBAN) 2 % ointment Apply 1 application to affected area three times daily. capsaicin (ZOSTRIX-HP) 0.075 % topical cream Apply 1 application to affected area four times daily. ULTICARE PEN NEEDLE 31 gauge x 5/16 ndle USE DIRECTED. TO INJECT INSULINS VITAMIN C 500 mg tablet TAKE 1 TABLET BY MOUTH DAILY Ferrous Gluconate (FERGON) 324 mg (38 mg iron) tablet TAKE 1 TABLET BY MOUTH DAILY WITH BREAKFAST isosorbide mononitrate ER (IMDUR) 60 mg 24 hr tablet Take 1.5 tablets by mouth once daily. In the morning atorvastatin (LIPITOR) 40 mg tablet TAKE 1 TABLET BY MOUTH DAILY diltiazem CD (CARDIZEM CD, CARTIA XT) 180 mg 24 hr capsule TAKE 1 CAPSULE BY MOUTH EVERY MORNING levothyroxine (SYNTHROID) 100 mcg tablet TAKE 1 TABLET BY MOUTH EVERY MORNING ELIQUIS 2.5 mg tab tab(s) TAKE 1 TABLET BY MOUTH TWICE A DAY nitroglycerin sublingual (NITROQUICK) 0.4 mg SL tablet DISSOLVE 1 TAB UNDER THE TONGUE NEEDED FOR CHEST PAIN EVERY 5 MINUTES UP TO 3 TIMES. IF NO RELIEF CALL 911. glucose 4 gram chewable tablet Take 4 tablets by mouth as needed for Low Blood Sugar. OXYGEN, HOME THERAPY, Inhale 3 L/min as instructed as directed. fluticasone (FLONASE) 50 mcg/actuation nasal spray Use 2 Sprays in each nostril once daily. furosemide (LASIX) 40 mg tablet Take 1 tablet by mouth twice daily. COMPOUNDED PRESCRIPTION Evaluation for diabetic shoes and inserts Dx: E11.65, Z79.4 Incontinence Pad, Liner, Disp pads 1 Device as needed (urinary incontinence). Prevail incontinence pads. Dx: urinary incontinence. Size: small Blood Pressure Cuff - Home Use BLOOD PRESSURE CUFF FOR HOME USE. DX: LABILE BLOOD PRESSURE Blood-Glucose Meter (ONETOUCH ULTRA2) monitoring kit UAD to test blood sugar Alcohol Swabs padm UAD to clean skin before testing blood sugar and injecting insulins. No current facility-administered medications on file prior to visit. 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 Social History Main Topics Smoking status: Former Smoker Packs/day: 1.00 Years: 28.00 Types: Cigarettes Start date: 1978 Quit date: 09/22/2005 Smokeless tobacco: Never Used Comment: Father smoked in childhood. 2nd spouse smoked in home. Alcohol use: No Drug use: No Sexual activity: No Social History Narrative 1 year in current home. No basement, 1 parakeet. Room A/C. Electric baseboard heat. Review of Symptoms REVIEW OF SYSTEMS GENERAL: No weight loss, malaise or fevers RESPIRATORY: Negative for cough, hemoptysis, wheezing, COPD, dyspnea or shortness of breath CARDIOVASCULAR: Negative for chest pain, leg swelling, hypertension, CHF or palpitations GI: No nausea, vomiting, or diarrhea : No history of dysuria, frequency or incontinence SKIN: Negative for lesions, rash, and itching EXAM: BP 128/78 Pulse (!) 58 Resp 14 SpO2 97% General Appearance: Well appearing, alert, in no acute distress, well-hydrated, well nourished.. Skin: Skin color, texture, turgor normal, no suspicious rashes or lesions. Lungs: Lungs clear to auscultation. No wheezing, rhonchi, rales. Heart: RRR without murmur, gallop, or rubs. No ectopy. Abdomen: Normal abdominal exam, Abdomen soft, non-tender. Bowel sounds normal. No masses, organomegaly. Extremities: No deformities, edema, skin discoloration, clubbing or cyanosis. Good capillary refill. . Feet: Shoes and socks removed, No deformities, ulcers, calluses, normal distal pulses and not sensitive to monofilament bilaterally Health Maintenance List INFLUENZA(1) due on 05/23/2018 DIABETIC FOOT EXAM due on 06/03/2018 URINE ALBUMIN:CREATININE RATIO due on 06/19/2018 BACILIO/ARB MED PRESCRIBED due on 05/23/2018 STATIN MED ADHERENCE due on 05/23/2018 DIABETES MED ADHERENCE due on 05/23/2018 HBA1C due on 06/13/2018 DILATED RETINAL EXAM due on 07/03/2018 MAMMOGRAM due on 12/11/2018 LDL CHOLESTEROL due on 12/11/2018 ANNUAL PCP TEAM CHRONIC DISEASE VISIT due on 04/13/2019 SERUM CREATININE due on 04/13/2019 BLOOD PRESSURE CONTROLLED due on 05/06/2019 COLORECTAL CANCER SCREENING,SEE MODIFIER due on 11/30/2019 PAP EVERY 5 YEARS due on 11/27/2021 HPV EVERY 5 YEARS due on 11/27/2021 DTAP,TDAP,TD(2 - Td) due on 10/02/2026 ONE PNEUMOVAX PRIOR TO AGE 65 Completed HEPATITIS C SCREENING Completed ASSESSMENT/PLAN: 1. Type 2 diabetes mellitus with diabetic neuropathy, with long-term current use of insulin (HCC) - ICD9: 250.60, 357.2, V58.67, ICD10: E11.40, Z79.4 (primary diagnosis) worsening control - Increase Lantus 30 units BID - Blood glucose monitoring on a four times a day schedule - Ophthalmology referral for eval/management of diabetic eye changes - Encouraged regular aerobic exercise and weight loss - Daily Asprin therapy recommended - Follow up in 3 weeks, sooner should any other issues arise. - HGB A1C - INSULIN GLARGINE (U-100) 100 UNIT/ML (3 ML) SUBCUTANEOUS PEN - COMP METABOLIC PANEL - ALBUMIN/CREAT RATIO RND UR 2. Altered mental status, unspecified altered mental status type - ICD9: 780.97, ICD10: R41.82 Improved. Continue Bipap nigthly. F/u in 2-3 weeks. 3. Hypercapnia - ICD9: 786.09, ICD10: R06.89 See above. 4. Chronic obstructive pulmonary disease, unspecified COPD type (HCC) - ICD9: 496, ICD10: J44.9 Continue current regimen. 5. PARESH treated with BiPAP - ICD9: 327.23, ICD10: G47.33 Continue nightly bipap. 6. Hospital discharge follow-up - ICD9: V67.59, ICD10: Z09 Mental status improved. Will work to control DM. F/u with high school social studies tutor to discuss assisted living. - PRIMARY CARE SOCIAL WORK CONSULT 7. Hypothyroidism, unspecified type - ICD9: 244.9, ICD10: E03.9 - check TSH today - TSH BLD 8. Dysphagia, unspecified type - ICD9: 787.20, ICD10: R13.10 - CONSULT SPEECH THERAPY I spent 40 minutes in the visit, with more than 50% of the total qwsy-pp-jfag time of the visit in counseling / coordination of care. Nanda Oliveira MD CNOV Observed: 05/20/2018 Status: COMPLETED Source: [facility] 3:40 PM [facility] REPOSITORY Office Visit (FAMPWS) TAMIA PANDA ([id number]) 1955 F Date Time Provider Department 05/20/18 3:40 PM [facility] During your visit today, we recorded the following information about you: Pulse Respiration Blood pressure 58/minute 14/minute 128/78 Nanda Oliveira MD 05/20/2018 10:07 PM Signed Chief Complaint Patient presents with: Hospital Follow Up HPI Tamiakarson Panda is a 63 year old female who presents here today for Hospital Discharge Follow up. Accompanied today by sister Ivy. Patient presented to the ED on 05/17 after family found her lethargic and confused at home. In the past she had been admitted with similar symptoms due to hypercapnia as she has been without Bipap at home despite following up with Dr. Middleton recently for sleep study. Found to be hypoglycemic in the ED with glucose in the 30s And ABG showed elevated CO2. CXr, CT brain, CTA head were all negative. Neuro consulted and initiated stroke workup, admitted to [facility] for monitoring with order for D50 and Bipap. The next morning patient was improved, without complaint, and requested to be discharged home. MRI brain and carotid US negative. Refused SNF despite losing her home soon as her sons have been living with her when she only lives in single bedroom apartment. Long acting insulin cut in half due to hypoglycemia and placed on mechanical soft diet after barium swallow revealed mild to moderate dysphagia. Supplier able to bring in a bipap machine for her before she was discharged and instructed on how to use. Discharged home in stable condition on 05/18. Since discharge, patient did not use the Bipap mask the first night because she didn't understand the hospital instructions. Last night was able to get the machine to work. Unsure of settings for machine at home, but knows she has 2L of oxygen at night. Mask too tight last night, so Kurt was out today to adjust mask and showed her how to operate the machine correctly. Radha states that since her Lantus was cut down to 26 units BID her sugars have been elevated into the 300s occasionally with typical readings in the 200s. Checking glucose readings 3-4 times per day as instructed and taking other medications as prescribed. Patient did not bring her readings with her today. Discussed increasing lantus today. Discussed patient's living situation and she says she has looked into assisted living and was told there was nowhere to rent, so has been searching for an apartment. Patient will lose her house in 2 days. Has plans at this time to stay with other sister Mery, but only for 1-2 weeks. Discussed assisted living, but patient is hesitant. Discussed social work referral to help with housing. Past medical history, appointments, medications, allergies reviewed. Previous Medical History PAST MEDICAL HISTORY Diagnosis Date - Acute chronic obstructive pulmonary disease with respiratory failure (HCC) - AF (paroxysmal atrial fibrillation) ([facility]) - Anxiety - Arthritis Seeing Dr Elliott - Cervical cancer (HCC) hysterectomy - CHF (congestive heart failure) ([facility]) - Chronic back pain Seeing Dr. Wallace - Constipation - COPD (chronic obstructive pulmonary disease) ([facility]) [facility] - Coronary atherosclerosis of [place] coronary artery Previously seeing Dr. Sosa - DDD (degenerative disc disease), lumbar - DM type 2 (diabetes mellitus, type 2) ([facility]) Seeing Dr. Foley for podiatry - DVT (deep venous thrombosis) ([facility]) Post op INA, BSO. - Dysphagia Seeing Dr. Beaulieu - Emphysema lung ([facility]) - Essential hypertension - Functional dyspepsia - Gastroparesis 2017 mild - GERD without esophagitis - Headache - History of colon polyps 11/28/2016 - Hyperlipidemia - Hypothyroidism - Incontinence Seeing Dr. Chapman - Lung nodule 02/[address] in 3 months - Morbid obesity ([facility]) - Muscle weakness - Nausea - PARESH on CPAP [facility] for BiPAP and [facility] for O2. - PE (pulmonary thromboembolism) ([facility]) Post op INA/BSO. - Pneumonia - RLS (restless legs syndrome) - Shortness of breath - Sleep apnea using oxygen currently, not on CPAP - Unsteadiness on feet - Wheezing Previous Surgical History PAST SURGICAL HISTORY Procedure Laterality Date - CHOLECYSTECTOMY - COLONOS W/REM POLYP SNARE 11/28/2016 Repeat 2019 - COLONOSCOPY Has had multiple in the past with polyps, cannot remember dates - EGD W/O BRSH SPECIMEN W/BX 11/28/2016 - HERNIA REPAIR HX multiple - KNEE SURGERY HX Left x3 for torn cartilage - NASAL SURGERY PROCEDURE sinus - TOTAL ABDOM HYSTERECTOMY 1987 Cervical cancer - TUBAL LIGATION HX - WRIST SURGERY HX Right ganglion cyst removal x2 Family History FAMILY HISTORY Problem Relation Age of Onset - Coronary Artery Disease Mother - Coronary Artery Disease Father - Asthma Brother - Coronary Artery Disease Brother - Diabetes Sister - Hypertension Sister - Diabetes Sister - Heart Sister - Allergies Sister - Asthma Sister - Allergies Sister - Emphysema Sister Early stages - COPD Paternal Uncle Patient Allergies ALLERGIES Allergen Reactions - Adhesive Tape (Adrienne* Intolerance Surgical tape leaves rash Irritates skin badly and blisters along with medical tape - Cats Other: See Comments Congested and itchy, difficulty breathing - Dogs Other: See Comments Congestion, sneezing, and difficulty breathing - Orphenadrine Unknown - Capsaicin Itching - Ciprofloxacin Other: See Comments Red, hot, itchy rash - Keflex [Cephalexin] Hives Negative skin testing and successful completion of an oral amoxicillin challenge was completed on 03/02/2018. Cephalexin shares an almost identical R1 side chain to amoxicillin; therefore, it is unlikely that she would be at elevated risk for developing an IgE-mediated reaction (allergic/anaphylactic). If she should need this medication in the future, I would recommend giving the first dose in a supervised medical setting. If no reaction after 30 minutes, proceed with regular dosing. - Niacin Unknown Pt states its niacin its niaspan - Reglan [Metoclopram* Other: See Comments Unable to sleep - Xanthines Unknown - Zofran [Ondansetron* Itching Current Medications Current Outpatient Prescriptions on File Prior to Visit: albuterol HFA (PROAIR HFA) 90 mcg/actuation inhaler Inhale 2 Puffs as instructed every 4 hours as needed for Wheezing/Shortness of Breath. LYRICA 100 mg capsule TAKE 1 CAPSULE BY MOUTH THREE TIMES A DAY BIPAP Bilevel PAP 16/12 cmH2O with 2 LPM oxygen bleed in, mask, tubing, filters, heated humidity, lifetime supplies. Dx: G47.33, G47.39. insulin glargine (LANTUS SOLOSTAR U-100 INSULIN) 100 unit/mL (3 mL) inpn Inject 54 units subcutaneously twice daily omeprazole (PRILOSEC) 20 mg capsule Take 1 capsule by mouth once daily. insulin glargine (LANTUS SOLOSTAR U-100 INSULIN) 100 unit/mL (3 mL) inpn Inject 56 Units subcutaneously twice daily. insulin lispro (HUMALOG KWIKPEN INSULIN) 200 unit/mL (3 mL) injection Inject subcutaneously 14 units with breakfast, 22 units with lunch, and 24 units with dinner metoprolol tartrate, short acting, (LOPRESSOR) 100 mg tablet TAKE 1 TABLET BY MOUTH TWICE A DAY DULoxetine (CYMBALTA) 60 mg capsule TAKE 1 CAPSULE BY MOUTH DAILY metFORMIN ER (GLUCOPHAGE XR) 500 mg 24 hr tablet TAKE 2 TABLETS BY MOUTH TWICE A DAY promethazine (PHENERGAN) 25 mg tablet Take 1 tablet by mouth every 6 hours as needed. aspirin, enteric coated (ASPIRIN, ENTERIC COATED) 81 mg EC tablet TAKE 1 TABLET BY MOUTH EVERY MORNING CLAUDIA-KYLE 8.6 mg tab TAKE 1 TABLET BY MOUTH TWICE A DAY STOOL SOFTENER 100 mg capsule TAKE 1 CAPSULE BY MOUTH DAILY Pseudoephedrine-guaiFENesin (MUCINEX D MAXIMUM STRENGTH) 120- 1,200 mg Tb12 Take 1 tablet by mouth twice daily. estradiol (ESTRACE) 0.01 % (0.1 mg/gram) vaginal cream Apply pea-sized amount to perineum and 1 applicator vaginally Mon, Wed, Fri for atrophic vaginitis. COMPOUNDED PRESCRIPTION Please fit for BiPAP mask. ONETOUCH ULTRA BLUE TEST STRIP test strip USE DIRECTED TO CHECK BLOOD SUGAR 4-5 TIMES DAILY ONETOUCH DELICA LANCETS 30 gauge misc USE TO CHECK BLOOD SUGAR 4-5 TIMES DALIY COMPOUNDED PRESCRIPTION OCD Titration for portable oxygen concentrator Oxygen Flow Rate between 2-6 liters. To keep oxygen saturation at or above 92%. mupirocin (BACTROBAN) 2 % ointment Apply 1 application to affected area three times daily. capsaicin (ZOSTRIX-HP) 0.075 % topical cream Apply 1 application to affected area four times daily. ULTICARE PEN NEEDLE 31 gauge x 02/04 ndle USE DIRECTED. TO INJECT INSULINS VITAMIN C 500 mg tablet TAKE 1 TABLET BY MOUTH DAILY Ferrous Gluconate (FERGON) 324 mg (38 mg iron) tablet TAKE 1 TABLET BY MOUTH DAILY WITH BREAKFAST isosorbide mononitrate ER (IMDUR) 60 mg 24 hr tablet Take 1.5 tablets by mouth once daily. In the morning atorvastatin (LIPITOR) 40 mg tablet TAKE 1 TABLET BY MOUTH DAILY diltiazem CD (CARDIZEM CD, CARTIA XT) 180 mg 24 hr capsule TAKE 1 CAPSULE BY MOUTH EVERY MORNING levothyroxine (SYNTHROID) 100 mcg tablet TAKE 1 TABLET BY MOUTH EVERY MORNING ELIQUIS 2.5 mg tab tab(s) TAKE 1 TABLET BY MOUTH TWICE A DAY nitroglycerin sublingual (NITROQUICK) 0.4 mg SL tablet DISSOLVE 1 TAB UNDER THE TONGUE NEEDED FOR CHEST PAIN EVERY 5 MINUTES UP TO 3 TIMES. IF NO RELIEF CALL 911. glucose 4 gram chewable tablet Take 4 tablets by mouth as needed for Low Blood Sugar. OXYGEN, HOME THERAPY, Inhale 3 L/min as instructed as directed. fluticasone (FLONASE) 50 mcg/actuation nasal spray Use 2 Sprays in each nostril once daily. furosemide (LASIX) 40 mg tablet Take 1 tablet by mouth twice daily. COMPOUNDED PRESCRIPTION Evaluation for diabetic shoes and inserts Dx: E11.65, Z79.4 Incontinence Pad, Liner, Disp pads 1 Device as needed (urinary incontinence). Prevail incontinence pads. Dx: urinary incontinence. Size: small Blood Pressure Cuff - Home Use BLOOD PRESSURE CUFF FOR HOME USE. DX: LABILE BLOOD PRESSURE Blood-Glucose Meter (ONETOUCH ULTRA2) monitoring kit UAD to test blood sugar Alcohol Swabs padm UAD to clean skin before testing blood sugar and injecting insulins. No current facility-administered medications on file prior to visit. 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 Social History Main Topics Smoking status: Former Smoker Packs/day: 1.00 Years: 28.00 Types: Cigarettes Start date: 1978 Quit date: 09/22/2005 Smokeless tobacco: Never Used Comment: Father smoked in childhood. 2nd spouse smoked in home. Alcohol use: No Drug use: No Sexual activity: No Social History Narrative 1 year in current home. No basement, 1 parakeet. Room A/C. Electric baseboard heat. Review of Symptoms REVIEW OF SYSTEMS GENERAL: No weight loss, malaise or fevers RESPIRATORY: Negative for cough, hemoptysis, wheezing, COPD, dyspnea or shortness of breath CARDIOVASCULAR: Negative for chest pain, leg swelling, hypertension, CHF or palpitations GI: No nausea, vomiting, or diarrhea : No history of dysuria, frequency or incontinence SKIN: Negative for lesions, rash, and itching EXAM: BP 128/78 Pulse (!) 58 Resp 14 SpO2 97% General Appearance: Well appearing, alert, in no acute distress, well-hydrated, well nourished.. Skin: Skin color, texture, turgor normal, no suspicious rashes or lesions. Lungs: Lungs clear to auscultation. No wheezing, rhonchi, rales. Heart: RRR without murmur, gallop, or rubs. No ectopy. Abdomen: Normal abdominal exam, Abdomen soft, non-tender. Bowel sounds normal. No masses, organomegaly. Extremities: No deformities, edema, skin discoloration, clubbing or cyanosis. Good capillary refill. . Feet: Shoes and socks removed, No deformities, ulcers, calluses, normal distal pulses and not sensitive to monofilament bilaterally Health Maintenance List INFLUENZA(1) due on 05/23/2018 DIABETIC FOOT EXAM due on 06/03/2018 URINE ALBUMIN:CREATININE RATIO due on 06/19/2018 BACILIO/ARB MED PRESCRIBED due on 05/23/2018 STATIN MED ADHERENCE due on 05/23/2018 DIABETES MED ADHERENCE due on 05/23/2018 HBA1C due on 06/13/2018 DILATED RETINAL EXAM due on 07/03/2018 MAMMOGRAM due on 12/11/2018 LDL CHOLESTEROL due on 12/11/2018 ANNUAL PCP TEAM CHRONIC DISEASE VISIT due on 04/13/2019 SERUM CREATININE due on 04/13/2019 BLOOD PRESSURE CONTROLLED due on 05/06/2019 COLORECTAL CANCER SCREENING,SEE MODIFIER due on 11/30/2019 PAP EVERY 5 YEARS due on 11/27/2021 HPV EVERY 5 YEARS due on 11/27/2021 DTAP,TDAP,TD(2 - Td) due on 10/02/2026 ONE PNEUMOVAX PRIOR TO AGE 65 Completed HEPATITIS C SCREENING Completed ASSESSMENT/PLAN: 1. Type 2 diabetes mellitus with diabetic neuropathy, with long-term current use of insulin (HCC) - ICD9: 250.60, 357.2, V58.67, ICD10: E11.40, Z79.4 (primary diagnosis) worsening control - Increase Lantus 30 units BID - Blood glucose monitoring on a four times a day schedule - Ophthalmology referral for eval/management of diabetic eye changes - Encouraged regular aerobic exercise and weight loss - Daily Asprin therapy recommended - Follow up in 3 weeks, sooner should any other issues arise. - HGB A1C - INSULIN GLARGINE (U-100) 100 UNIT/ML (3 ML) SUBCUTANEOUS PEN - COMP METABOLIC PANEL - ALBUMIN/CREAT RATIO RND UR 2. Altered mental status, unspecified altered mental status type - ICD9: 780.97, ICD10: R41.82 Improved. Continue Bipap nigthly. F/u in 2-3 weeks. 3. Hypercapnia - ICD9: 786.09, ICD10: R06.89 See above. 4. Chronic obstructive pulmonary disease, unspecified COPD type (HCC) - ICD9: 496, ICD10: J44.9 Continue current regimen. 5. PARESH treated with BiPAP - ICD9: 327.23, ICD10: G47.33 Continue nightly bipap. 6. Hospital discharge follow-up - ICD9: V67.59, ICD10: Z09 Mental status improved. Will work to control DM. F/u with high school social studies tutor to discuss assisted living. - PRIMARY CARE SOCIAL WORK CONSULT 7. Hypothyroidism, unspecified type - ICD9: 244.9, ICD10: E03.9 - check TSH today - TSH BLD 8. Dysphagia, unspecified type - ICD9: 787.20, ICD10: R13.10 - CONSULT SPEECH THERAPY I spent 40 minutes in the visit, with more than 50% of the total erou-da-rjvu time of the visit in counseling / coordination of care. Nanda Oliveira MD Referring Provider: SELF [[id number]] Allergies As of Date: 05/20/2018 Noted Allergy Reaction ADHESIVE TAPE (ROSINS) 04/04/2015 5 - Intolerance Comments: Surgical tape leaves rash Irritates skin badly and blisters along with medical tape CATS 04/10/2016 14 - Other: See Comments Comments: Congested and itchy, difficulty breathing DOGS 04/10/2016 14 - Other: See Comments Comments: Congestion, sneezing, and difficulty breathing ORPHENADRINE 04/10/2016 16 - Unknown CAPSAICIN 03/02/2018 9 - Itching CIPROFLOXACIN 12/11/2011 14 - Other: See Comments Comments: Red, hot, itchy rash KEFLEX (CEPHALEXIN) 07/10/2016 4 - Hives Comments: Negative skin testing and successful completion of an oral amoxicillin challenge was completed on 03/02/2018. Cephalexin shares an almost identical R1 side chain to amoxicillin; therefore, it is unlikely that she would be at elevated risk for developing an IgE-mediated reaction (allergic/anaphylactic). If she should need this medication in the future, I would recommend giving the first dose in a supervised medical setting. If no reaction after 30 minutes, proceed with regular dosing. NIACIN 04/04/2015 16 - Unknown Comments: Pt states its niacin its niaspan REGLAN (METOCLOPRAMIDE HCL) 03/04/2017 14 - Other: See Comments Comments: Unable to sleep XANTHINES 10/18/2004 16 - Unknown ZOFRAN (ONDANSETRON HCL (PF)) 02/03/2018 9 - Itching Date Reviewed: 05/20/2018 Reviewed by: Clayton Serna Ma - Fully Assessed Reason for Visit: Hospital Follow Up [177] Primary Visit Diagnosis:Type 2 diabetes mellitus with diabetic neuropathy, with long-term current use of insulin (HCC) [E11.40, Z79.4] Other Visit Diagnoses:Altered mental status, unspecified altered mental status type [R41.82] Hypercapnia [R06.89] Chronic obstructive pulmonary disease, unspecified COPD type (HCC) [J44.9] PARESH treated with BiPAP [G47.33] Hospital discharge follow-up [Z09] Hypothyroidism, unspecified type [E03.9] Dysphagia, unspecified type [R13.10] Order(s):HGB A1C [[id number]] Order #: [id number] FUTURE insulin glargine (LANTUS SOLOSTAR U-100 INSULIN) 100 unit/mL (3 mL) inpnInject 30 units subcutaneously twice dailyDisp: 3 PenRfl: 1 TSH BLD [SQTSH] Order #: [id number] FUTURE COMP METABOLIC PANEL [SQCMP] Order #: [id number] FUTURE ALBUMIN/CREAT RATIO RND UR [SQUACR] Order #: [id number] FUTURE CONSULT SPEECH THERAPY [2030900] Order #: [id number]: 1 PRIMARY CARE SOCIAL WORK CONSULT [0080037] Order #: [id number]: 1 Prescriptions as of 05/20/2018 Sig: INSULIN GLARGINE (U-100) 100 * Inject 30 units subcutaneousl* ALBUTEROL SULFATE HFA 90 MCG/* Inhale 2 Puffs as instructed * LYRICA 100 MG CAPSULE TAKE 1 CAPSULE BY MOUTH THREE* BIPAP Bilevel PAP 16/12 cmH2O with * OMEPRAZOLE 20 MG CAPSULE,MARIA EUGENIA* Take 1 capsule by mouth once * INSULIN LISPRO (U-200) 200 UN* Inject subcutaneously 14 unit* METOPROLOL TARTRATE 100 MG TA* TAKE 1 TABLET BY MOUTH TWICE * DULOXETINE 60 MG CAPSULE,MARIA EUGENIA* TAKE 1 CAPSULE BY MOUTH DAILY METFORMIN ER 500 MG TABLET,EX* TAKE 2 TABLETS BY MOUTH TWICE* PROMETHAZINE 25 MG TABLET Take 1 tablet by mouth every * ASPIRIN 81 MG TABLET,DELAYED * TAKE 1 TABLET BY MOUTH EVERY * CLAUDIA-KYLE 8.6 MG TABLET TAKE 1 TABLET BY MOUTH TWICE * STOOL SOFTENER 100 MG CAPSULE TAKE 1 CAPSULE BY MOUTH DAILY PSEUDOEPHEDRINE-GUAIFENESIN E* Take 1 tablet by mouth twice * ESTRADIOL 0.01% (0.1 MG/GRAM)* Apply pea-sized amount to per* COMPOUNDED PRESCRIPTION Please fit for BiPAP mask. BUX ULTRA BLUE TEST STRIP USE DIRECTED TO CHECK BLOO* ONETOUCH DELICA LANCETS 30 GA* USE TO CHECK BLOOD SUGAR 4-5 * COMPOUNDED PRESCRIPTION OCD Titration for portable ox* CAPSAICIN 0.075 % TOPICAL CRE* Apply 1 application to affect* ULTICARE PEN NEEDLE 31 GAUGE * USE DIRECTED. TO INJECT IN* VITAMIN C 500 MG TABLET TAKE 1 TABLET BY MOUTH DAILY FERROUS GLUCONATE 324 MG (38 * TAKE 1 TABLET BY MOUTH DAILY * ISOSORBIDE MONONITRATE ER 60 * Take 1.5 tablets by mouth onc* ATORVASTATIN 40 MG TABLET TAKE 1 TABLET BY MOUTH DAILY DILTIAZEM SR 180 MG 24 HR CAP TAKE 1 CAPSULE BY MOUTH EVERY* LEVOTHYROXINE 100 MCG TABLET TAKE 1 TABLET BY MOUTH EVERY * ELIQUIS 2.5 MG TABLET TAKE 1 TABLET BY MOUTH TWICE * NITROGLYCERIN 0.4 MG SUBLINGU* DISSOLVE 1 TAB UNDER THE TONG* GLUCOSE 4 GRAM CHEWABLE TABLET Take 4 tablets by mouth as ne* OXYGEN (HOME THERAPY) Inhale 3 L/min as instructed * FLUTICASONE 50 MCG/ACTUATION * Use 2 Sprays in each nostril * FUROSEMIDE 40 MG TABLET Take 1 tablet by mouth twice * COMPOUNDED PRESCRIPTION Evaluation for diabetic shoes* INCONTINENCE PAD, LINER, DISP* 1 Device as needed (urinary i* COMPOUNDED PRESCRIPTION BLOOD PRESSURE CUFF FOR HOME * BLOOD-GLUCOSE METER KIT UAD to test blood sugar ALCOHOL SWABS UAD to clean skin before test* Problem List As Of Date 05/20/2018 Noted Resolved SUBJECTIVE TINNITUS [H93.19] INVALID FOR* PARESH treated with BiPAP [G47.33] INVALID FOR* Hyperlipidemia [E78.5] INVALID FOR* Coronary disease [I25.10] INVALID FOR* Diabetes mellitus, type II (HCC) [E11.9] INVALID FOR* Morbid obesity ([facility]) [E66.01] Hypothyroidism [E03.9] Anxiety [F41.9] Sleep apnea [G47.30] 02/14/2017 Essential hypertension [I10] Coronary artery disease of [place] artery of [place]* AF (paroxysmal atrial fibrillation) ([facility]) [I48.* COPD (chronic obstructive pulmonary disease) (H* GERD without esophagitis [K21.9] Dysphagia [R13.10] Constipation [K59.00] DM type 2 (diabetes mellitus, type 2) ([facility]) [E1* 02/14/2017 Shortness of breath [R06.02] 02/14/2017 Arthritis [M19.90] More... CHF (congestive heart failure) (HCC) [I50.9] BPPV (benign paroxysmal positional vertigo) [H8*INVALID FOR* RLS (restless legs syndrome) [G25.81] INVALID FOR* Iron deficiency concern: RE RLS [E61.1] INVALID FOR* Tubular adenoma [D36.9] INVALID FOR* Incontinence [R32] More... Gastroparesis [K31.84] INVALID FOR* Pre-op testing [Z01.818] INVALID FOR* More... Hypercapnia [R06.89] INVALID FOR* S/P coronary artery stent placement [Z95.5] INVALID FOR* Stage 3 chronic kidney disease [N18.3] INVALID FOR* Depression [F32.9] INVALID FOR* Obesity, Class II, BMI 35-39.9 [E66.9] INVALID FOR* Prescriptions ordered this encounter Disp Refills Start End INSULIN GLARGINE (U-100) 100 UNIT/ML* 3 Pen 1 05/20/2018 Sig: Inject 30 units subcutaneously twice daily Medications Discontinued During This Encounter insulin glargine (LANTUS SOLOSTAR U-* 45 mL 3 03/11/2018 05/20/2018 Class: Med Update Route: SUBCUTANEOUS Sig: Inject 56 Units subcutaneously twice daily. Disc: Reason for discontinue is not on file. mupirocin (BACTROBAN) 2 % ointment 1 Tu* 0 11/27/2017 05/20/2018 Route: TOPICAL Sig: Apply 1 application to affected area three times daily. Disc: Reason for discontinue is not on file. insulin glargine (LANTUS SOLOSTAR U-* 3 Pen 1 04/13/2018 05/20/2018 Sig: Inject 54 units subcutaneously twice daily Disc: Reason for discontinue is not on file. Follow-up and Disposition History Recorded Encounter Status:Closed by NANDA OLIVEIRA MD on 05/20/18 CAROTID DUPLEX Observed: 05/20/2018 Status: F Source: [place] ULTRASOUND 3:04 PM [facility] [place] REPOSITORY [facility] Cardiovascular Services [address] [place] [address] [place] [address] Carotid Duplex Ultrasound 05/18/18 1452 MR#: [id number] Acct: [id number] Name: TAMIA PANDA Rep #: [id number] : 1955 63 From: Jean Pierre Keene MD Attending Dr: Yvon Hogan MD Status: DIS IN Ordering Dr: Yvon Hogan MD Date: 05/18/18 Location: [facility] Sex: F C Admitted: 05/17/18 Reason For Study: CVA Rt. Velocities/BP Lt. Velocities/BP Prox CCA 76/11 cm/sec. Prox CCA 84/13 cm/sec. Mid CCA 56/12 cm/sec. Mid CCA 87/20 cm/sec. Dist CCA 60/16 cm/sec. Dist CCA 62/11 cm/sec. Prox ICA 67/15 cm/sec. Prox ICA 64/18 cm/sec. Mid ICA 79/25 cm/sec. Mid ICA 72/24 cm/sec. Dist ICA 80/28 cm/sec. Dist ICA 80/17 cm/sec. Rt. ICA/CCA = 1.43. Lt. ICA/CCA = 0.92. Prox ECA 75/6 cm/sec. Prox ECA 116/8 cm/sec. Rt. Vert. 44/13 cm/sec. Lt. Vert. 42/9 cm/sec. Right Extracranial There is intimal thickening but no significant atherosclerotic plaque noted in the right common carotid artery. There is intimal thickening but no significant atherosclerotic plaque noted in the right internal carotid artery. There is no significant atherosclerotic plaque noted in the right external carotid artery. Antegrade flow is noted in the right vertebral artery. Left Extracranial There is intimal thickening but no significant atherosclerotic plaque noted in the left common carotid artery. There is intimal thickening but no significant atherosclerotic plaque noted in the left internal carotid artery. There is intimal thickening but no significant atherosclerotic plaque noted in the left external carotid artery. Antegrade flow is noted in the left vertebral artery. Procedure Carotid Duplex [id number]. Exam performed portable in patient room. Interpretation Summary There is < 50% stenosis in the bilateral extracranial internal carotid arteries based on velocity criteria. There is atherosclerotic palque noted in the right internal cartoid artery. There is antegrade flow in bilateral vertebral arteries. Ordering Physician: Yvon Hogan Referring Physician: Nanda Oliveira Performed By: Mckenna Fish, RDBETI, RVT 05/20/18 1504 Date Jean Pierre Keene MD CC: Bhupendra Oliveira MD; Yvon Hogan MD Date Dictated: 05/18/18 1452 Date Transcribed: 05/20/18 1504 Pipe Recovery Specialist: Signed 12 LEAD ELECTROCARDIOGRAM Observed: 05/19/2018 Status: F Source: MEARS 1:35 PM [facility] [place] REPOSITORY [facility] Cardiovascular Services [address] [place] [id number] 12 Lead EKG 05/17/18 1256 MR#: [id number] Acct: [id number] Name: TAMIA PANDA Rep #: [id number] : 1955 63 From: Bart Blas MD Attending Dr: Yvon Hogan MD Status: DIS IN Ordering Dr: Zuhair Lawrence DO Date: 05/17/18 Location: [facility] Sex: F C Admitted: 05/17/18 Test Reason : STROKE ALERT Blood Pressure : / mmHG Vent. Rate : 077 BPM Atrial Rate : 357 BPM P-R Int : 000 ms QRS Dur : 086 ms QT Int : 424 ms P-R-T Axes : 000 -18 189 degrees QTc Int : [address] AND T wave abnormality, consider inferolateral ischemia Prolonged QT Abnormal ECG Confirmed by BART BLAS MD ([id number]), senior technical editor SHYANNE TERRAZAS ([id number]) on 05/19/2018 1:35:00 PM Referred By: Confirmed By:BART BLAS MD 05/19/18 1335 Date Bart Blas MD CC: Bhupendra Oliveira MD; Yvon Hogan MD; Zuhair Lawrence DO Signed PROGRESS Observed: 05/19/2018 Status: COMPLETED Source: [place]SELL 11:50 AM [facility] [place] REPOSITORY HNO ID: [id number] Author: Nanda Rodriguez) Brian Service: (none) Author Type: Physician Type: Progress Notes Filed: 05/19/2018 11:50 AM Note Text: Reviewed. DISCHARGE SUMMARY Observed: 05/18/2018 Status: F Source: MEARS 5:51 PM [facility] [place] REPOSITORY [facility] Medical Records Department [address] [place] [address] Discharge Summary 05/18/18 1655 MR#: [id number] Acct: [id number] Name: TAMIA PANDA Rep #: [id number] : 1955 63 From: Vinay MORA PCP: Bhupendra Oliveira MD Status: ADM IN Y Location: [place] [address] <Vinay Bear - Last Filed: 05/18/18 17:04> Discharge Date and Diagnosis - Problem List Patient Problems: Active and Suspected Problems Acute metabolic encephalopathy (Acute) Date of Admission: 05/17/18 Date of Discharge: 05/18/18 - Primary Discharge Diagnosis Active and Suspected Problems Acute metabolic encephalopathy (Acute) 2/2 Hypercarbia, hypoglycemia PARESH, noncompliant with bipap at home Mild to moderate oropharyngeal dysphagia Acute CVA ruled out. Chronic hypoxic respiratory failure DMt2 with hypoglycemia GERD HLD HTN COPD Paroxysmal Afib CAD prior PTCA - Secondary Discharge Diagnosis Chronic Problems Paroxysmal A-fib (Chronic) Diabetes mellitus type 2 in obese (Chronic) Coronary arteriosclerosis (Chronic) cath 05/2015 mild-moderate disease medical therapy recommended Hypothyroidism (Chronic) Hyperlipemia (Chronic) GERD (gastroesophageal reflux disease) (Chronic) Hypertension (Chronic) COPD (chronic obstructive pulmonary disease) (Chronic) Chronic respiratory insufficiency (Chronic) On home oxygen at night S/P PTCA (percutaneous transluminal coronary angioplasty) (Chronic) PARESH (obstructive sleep apnea) (Chronic) Hospital Course and Treatment Imaging Results: 05/18/18 09:43 MRI Brain [Brain without Contrast] [MRI] Urgent 05/18/18 14:00 Cookie Swallow [Swallowing Function w/Video] [RAD] Urgent CT/Brain/Head without Contrast IMPRESSION: Chronic involutional changes of the brain. RAD/Chest 1 View IMPRESSION: Degenerative changes, as described above. No demonstrated acute cardiopulmonary process. CT/CTA Head W/WO Contrast IMPRESSION: Normal big sandy of [place] without a demonstrated aneurysm or hemodynamically significant stenosis. MRI/Brain without Contrast IMPRESSION: 1. No MRI evidence of acute or subacute ischemic infarct. 2. No MRI evidence of remote cortical-based ischemic infarct or old lacunar cystic infarct. 3. Few subcortical white matter T2 FLAIR hyperintensity foci in the right cerebral hemisphere and in the pontine tegmentum are presumably chronic white matter ischemic changes. Modified Barium Swallow: INTERPRETATION OF RESULTS: Patient presents with mild to moderate oropharyngeal dysphagia (R13.12) likely secondary to a combination of chronic obstructive pulmonary disease and secondary presbyphagia. Oral preparatory phase marked by mastication inefficiency attributed to the Patients edentulous status. Oral transit phase unremarkable. Pharyngeal phase marked by impaired pharyngeal swallow onset timing resulting in suboptimal bolus location upon swallow onset; and reduced closure of the airway during deglutition attributed to a mild reduction anterior hyoid excursion resulting in inconsistent laryngeal vestibule closure / pressure with inconsistent laryngeal vestibule pressure generated to expel penetrated material; all pharyngeal phase deficits contributing to prandial transient penetration of thin liquids. Pharyngeal penetration exacerbated with execution of chin tuck posture. No aspiration appreciated throughout trials, unable to definitively rule out silent aspiration. RECOMMENDATIONS: Would consider continued skilled speech-language intervention targeting continued diet texture management; training and implementation of recommended compensatory strategies; and Patient and caregiver education regarding dysphagia associated with chronic obstructive pulmonary disease. ADDITIONAL COMMENTS/RECOMMENDATIONS: Results and recommendations were discussed with the Patient immediately following MBS completion, with the Patient verbalizing understanding and agreement with all recommendations and education provided. Consults: Kamara - neuro Operations: None Procedures: None Summary of Care Provided: Physical exam on day of discharge: General: Resting comfortably NAD Psych: A/Ox3 normal affect HEENT: PEARRLA AT NC Neck: Supple NT CV: RRR no m/t/r/g/h Resp: CTA, mildly diminished. Abd: [id number] Soft NT no guarding or rigidity Ext: DP2+= no edema Skin: W/D normal turgor Lymph/Heme: No active bleeding or adenopathy Neuro: CN2-12 intact Hospital course: The patient is a 63 year old F with hx as above who presented to the ER with increased lethargy, hypercarbia, and hypoglycemia. She has had multiple admissions for the same. She has a hx of PARESH and is supposed to be on BiPAP at home however had not yet received the machine. On prior admissions she has done very well after being admitted and having glucose corrected and being started on Bipap. She becomes very somnolent without BiPAP and her glucose drops very low as she is on high doses of insulin. She appeared to have the same this time. The family was concerned as when they found her she was slurring her speech. In the ER CXR was negative, glucose was low, CO2 was elevated on ABG, and CT brain was negative, and CTA head was negative. Neuro was consulted and felt this was 2/2 hypersomnolence but that a stroke work up should be initiated. She was admitted to PCU for tele monitoring. Her mentation improved with D50 and BiPAP. The following morning she had no complaints and wanted to go home. She was not interested in SNF placement. She was losing her home but arranged to go live with her sister. She had an MRI of the brain which was negative. She had a carotid US which was also negative. Barium swallow revealed mild to moderate oropharyngeal dysphagia and she was placed on a mechanical soft diet - she will need to continue this at discharge. Long acting insulin was cut back by 50%, but other diabetic therapies were continued. We were able to get the medical supplier to bring her the BiPAP machine her and show her how to use it. She was strongly advised on the importance of using it nightly. She was discharged home in stable condition. This patient was seen by Vinay Bear PA-C under the supervision of Doctor Hogan. [] Discharge Diet: Low fat/ Low Cholesterol, 1800 Calorie Control Diet, 2000 mg Sodium Diet Discharge Activity: Return to Normal Activity Additional Activity Instructions:: Must continue to use bipap at night as instructed today. Home Medications: Medications to take at Discharge Albuterol Inhaler [Ventolin Hfa] 2 puff INHALATION Q4H PRN PRN 02/03/18 Aspirin [Aspirin, Baby] 81 mg PO DAILY@0800 02/03/18 Atorvastatin Calcium [Lipitor] 40 mg PO QHS 02/03/18 Diltiazem HCl [Cartia Xt] 180 mg PO DAILY 02/03/18 Docusate Sodium [Stool Softener] 100 mg PO DAILY PRN PRN 02/03/18 Duloxetine Hcl [Cymbalta] 60 mg PO DAILY 02/03/18 Ferrous Gluconate 325 mg PO DAILY@0800 02/03/18 Furosemide [Lasix] 40 mg PO BIDLX 02/03/18 Insulin Lispro [Humalog KwikPen] 22 unit SQ LUNCH 02/03/18 Insulin Lispro [Humalog KwikPen] 24 unit SQ DINNER 02/03/18 Insulin Lispro [Humalog] 14 unit SQ BREAKFAST 02/03/18 Isosorbide Mononitrate [Imdur] 90 mg PO DAILY 02/03/18 Levothyroxine [Synthroid] 100 mcg PO DAILY 02/03/18 Metformin HCl [Metformin HCl ER] 1,000 mg PO BID 02/03/18 Apixaban [Eliquis] 2.5 mg PO 05/17/18 Ascorbic Acid [Vitamin C] 500 mg PO DAILY@0800 05/17/18 Metoprolol Tartrate [Lopressor] 100 mg PO BID 05/17/18 Omeprazole [Prilosec] 20 mg PO DAILY 05/17/18 Pregabalin [Lyrica] 100 mg PO TID 05/17/18 Sennosides [Claudia-Kyle] 8.6 mg PO BID 05/17/18 Insulin Glargine [Lantus SoloStar Pen] 26 units SC BID pen 05/18/18 Primary Care Physician: Bhupendra Oliveira MD [Primary Care Provider] - Please follow up with your Primary Care Physician in: 1-2 weeks Please Follow Up With: Bhupendra Oliveira MD Disposition: Home Minutes spent on discharge:: 35 Patient Condition:: Stable Medical Necessity - Tobacco Use Smoking Status: Former smoker Meaningful Use Info Meaningful Use Diagnoses (Choose all that apply): None applicable <Yvon Hogan - Last Filed: 05/18/18 17:50> Discharge Date and Diagnosis - Primary Discharge Diagnosis Active and Suspected Problems Acute metabolic encephalopathy (Acute) - Secondary Discharge Diagnosis Chronic Problems Paroxysmal A-fib (Chronic) Diabetes mellitus type 2 in obese (Chronic) Coronary arteriosclerosis (Chronic) cath 05/2015 mild-moderate disease medical therapy recommended Hypothyroidism (Chronic) Hyperlipemia (Chronic) GERD (gastroesophageal reflux disease) (Chronic) Hypertension (Chronic) COPD (chronic obstructive pulmonary disease) (Chronic) Chronic respiratory insufficiency (Chronic) On home oxygen at night S/P PTCA (percutaneous transluminal coronary angioplasty) (Chronic) PARESH (obstructive sleep apnea) (Chronic) Hospital Course and Treatment Imaging Results: 05/18/18 09:43 MRI Brain [Brain without Contrast] [MRI] Urgent 05/18/18 14:00 Cookie Swallow [Swallowing Function w/Video] [RAD] Urgent Summary of Care Provided: The patient is a 63 year old F with multiple comorbidities including obstructive sleep apnea, morbid obesity with recurrent admissions admitted with altered mental status. This was felt to be secondary to metabolic encephalopathy from hypercapnia. Placed on a monitored bed did rule out acute CVA with imaging studies. Hospital course: As elicited above by Vinay Bear's note Time spent on discharge; 35 minutes Code Visit Inpatient E AND M: [id number] Disch Hosp 05/18/18 1707 <Electronically signed by Vinay MORA> Date Vinay MORA 05/18/18 1751<Electronically signed by Yvon Hogan MD> Cosigner Signature (if applicable): Date Yvon Hogan MD CC: MORGAN Bear; Bhupendra Oliveira MD; Yvon Hogan MD Signed PROGRESS Observed: 05/18/2018 Status: COMPLETED Source: [place] 5:20 PM [facility] REPOS[facility] HNO ID: [id number] Author: Saad (Rn) Larry Service: (none) Author Type: Registered Nurse Type: Progress Notes Filed: 05/18/2018 5:25 PM Note Text: PRIMARY CARE COORDINATION FOLLOW-UP NOTE Provider Action/FYI Pt may be discharged today BIPAP being set up with patient now at [facility] Patient identified by name and date of . YES Spoke to JOSEFINA Cook at [facility] Summary: Pt is being set up for BiPAP at the hospital now. Kurt will f/u at pt's home on Fri or She is still scheduled to be discharged today She will be going to stay with her sister on Friday. This is temporary and she still needs assistance in finding an apt. SW contacted Priyank Hurtado CM Cleaning Supervisor plan for next outreach: Will follow up after discharge Signature Saad Silvestre RN May 18, 2018 DISCHARGE INSTRUCTION Observed: 05/18/2018 Status: F Source: MEARS 4:54 PM [facility] [place] REPOSITORY [facility] Medical Records Department [address] [place] [address] Instructions for Home/Discharge Instructions 05/18/18 1651 MR#: [id number] Acct: [id number] Name: MTGeoffTAMIA J Rep #: [id number] : 1955 63 From: Vinay MORA PCP: Bhupendra Oliveira MD Status: ADM IN - Discharge Diagnoses Current Active Problems: Current Active and Chronic Problems Acute metabolic encephalopathy (Acute) Paroxysmal A-fib (Chronic) You will use the following diet at home:: Calorie/Carbohydrate Controlled (specify 1200, 1400, etc) - 1800 harmeet / day, Cardiac Your food should be the consistency of: Regular Your liquids should be the consistency of: Regular/Thin Discharge Activity: Return to Normal Activity Additional Activity Instructions:: Must continue to use bipap at night as instructed today. Allergies/Adverse Reactions: Allergies ciprofloxacin [From Cipro] Allergy (Verified 05/17/18 14:15) Hives latex Allergy (Verified 05/17/18 14:15) matos me niacin [From Niaspan Extended-Release] Allergy (Verified 05/17/18 14:15) Hives ondansetron [From Zofran] Allergy (Verified 05/17/18 14:15) Unknown Xanthines Allergy (Verified 05/17/18 14:15) Unknown Penicillins Adverse Reaction (Mild, Verified 05/17/18 14:15) Itching/redness orphenadrine citrate [From Norgesic] Adverse Reaction (Verified 05/17/18 14:15) groggy medical tape Adverse Reaction (Uncoded 05/17/18 14:15) blisters Medications to take at Discharge Albuterol Inhaler [Ventolin Hfa] 2 puff INHALATION Q4H PRN PRN 02/03/18 Aspirin [Aspirin, Baby] 81 mg PO DAILY@0800 02/03/18 Atorvastatin Calcium [Lipitor] 40 mg PO QHS 02/03/18 Diltiazem HCl [Cartia Xt] 180 mg PO DAILY 02/03/18 Docusate Sodium [Stool Softener] 100 mg PO DAILY PRN PRN 02/03/18 Duloxetine Hcl [Cymbalta] 60 mg PO DAILY 02/03/18 Ferrous Gluconate 325 mg PO DAILY@0800 02/03/18 Furosemide [Lasix] 40 mg PO BIDLX 02/03/18 Insulin Lispro [Humalog KwikPen] 22 unit SQ LUNCH 02/03/18 Insulin Lispro [Humalog KwikPen] 24 unit SQ DINNER 02/03/18 Insulin Lispro [Humalog] 14 unit SQ BREAKFAST 02/03/18 Isosorbide Mononitrate [Imdur] 90 mg PO DAILY 02/03/18 Levothyroxine [Synthroid] 100 mcg PO DAILY 02/03/18 Metformin HCl [Metformin HCl ER] 1,000 mg PO BID 02/03/18 Apixaban [Eliquis] 2.5 mg PO 05/17/18 Ascorbic Acid [Vitamin C] 500 mg PO DAILY@0800 05/17/18 Metoprolol Tartrate [Lopressor] 100 mg PO BID 05/17/18 Omeprazole [Prilosec] 20 mg PO DAILY 05/17/18 Pregabalin [Lyrica] 100 mg PO TID 05/17/18 Sennosides [Claudia-Kyle] 8.6 mg PO BID 05/17/18 Insulin Glargine [Lantus SoloStar Pen] 26 units SC BID pen 05/18/18 Primary Care Physician: Bhupendra Oliveira MD [Primary Care Provider] - Test Results: Test results from this visit will be discussed in further detail at your follow-up appointment, if applicable. Please Follow Up With: Bhupendra Oliveira MD Proposed Discharge Date: 05/18/18 05/18/18 3421 <Electronically signed by Vinay MORA> Date Vinay MORA CC: Bhupendra Oliveira MD; Ricardo Kamara MD MODIFIED BARIUM Observed: 05/18/2018 Status: F Source: MEARS SWALLOW STUDY 4:06 PM [facility] [place] REPOSITORY [facility] Speech Pathology [address] [place] [address] Modified Barium Swallow Study MR#: [id number] Acct: [id number] Name: TAMIA PANDA Rep #: [id number] : 1955 63 From: Luis Alberto Kothari M.A., CFY-PROCESSES CHEMICAL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 Comment: Please note revised GLUCOSE reference range effective 2017. LAB L501.1000 7-18 mg/dL Normal BUN 12 LAB L501.1100 0.55-1.02 mg/dL Normal CREAT,SERUM 0.68 Result Comment: The validity of the calculated GFR AND GFRAA in patients over 70 years has not been determined. Clinical correlation is essential. LAB L501.1110 >60 mL/min Normal EST GFR 93 Result Comment: Non- GFR Calc LAB L501.1115 >60 mL/min Normal EST GFR - AA 113 Result Comment: GFR Calc LAB L501.1255 ml/min Normal Estimated CRCL 66.97 LAB L501.1300 10-20 RATIO Normal BUN/CRE 17.7 LAB L501.2200 8.5-10 mg/dL Low .1 CA 8.3 LAB L501.5300 136-14 mmol/L High 5 NA 149 LAB L501.5600 3.5-5. mmol/L Normal 1 K 3.8 LAB L501.5900 98-107 mmol/L Normal CL 105 LAB L501.6100 21.0-3 mmol/L High 2.0 CO2 35.0 LAB L501.6200 5-15 Normal GAP 9 Performed By: #### L500.2500, L501.5200 #### [facility] [address] [place], [place], [address] MAGNESIUM Collected: 05/18/2018 Status: F Source: KINJAL 5:00 AM [facility] REPOSITORY TYPE CODE TESTS RESULT OUT OF RANGE REFERENCE UNITS LAB L501.5200 1.6-2.6 mg/dL Normal MG 1.7 Performed By: #### L500.2500, L501.5200 #### [facility] [address] [place], [address] BEDSIDE GLUCOSE Collected: 05/18/2018 Status: F Source: KINJAL 12:36 AM [facility] REPOSITORY TYPE CODE TESTS RESULT OUT OF RANGE REFERENCE UNITS LAB L501.080 70-110 mg/dL Normal BEDSIDE GLU 98 Result Comment: MANAGEMENT OF PATIENT CARE PER NURSING PROTOCOL Performed By: #### L501.080 #### [facility] Point of Care [address] [place] [address] LMTOUTRROQUE Observed: 05/18/2018 Status: COMPLETED Source: RUSSELL 12:00 AM [facility] REPOSITORY Patient Outreach (FAMPWS) TAMIA PANDA ([id number]) 1955 F Date Time Provider Department 05/18/18 SAAD SILVESTRE (RN) CRY[facility]ALPWS During your visit today, we recorded the following information about you: Saad Silvestre RN 05/18/2018 10:56 AM Signed PRIMARY CARE COORDINATION FOLLOW-UP NOTE Provider Action/FYI ROSEMARIEI Pt in [facility] again, MD doesn't want her discharged without BIPAP. PCC and CM working with [facility] to have BIPAP delivered by discharge. Patient identified by name and date of . YES Spoke to NINA Cook CM [facility] and Hilda at [facility] DME Summary: TC to JOSEFINA Cook at [facility], pt is in the hospital again for hypercapnia and they do not want pt discharged without BIPAP in place. Informed PCC spoke to [facility] and faxed more office notes and they said as soon as they have it approved they can deliver a BiPAP that is currently on the shelf. CM states she will call [facility] as well. States pt also was recommended to go to SNF but refused, as usual, and since her lease at apartment is not being renewed pt will be living with her sister. Faxed office notes from past two pulmonary office visits and Dr. Middleton visit on 05/06 to [facility]. TC to Hilda at [facility], asked when pt will be getting her BIPAP? Pt is back in [facility] with same issues from her PARESH and needs her BIPAP kennedi. Asked PCC to fax last notes from [facility] Medicine. Once she gets it approved by insurance they will be able to deliver one that is on the shelf. Concerns: TC from [place], left message asking where are we in the process of getting patient her BIPAP? Cleaning Supervisor plan for next outreach: Will follow up at discharge Signature Saad Silvestre RN May 18, 2018 Nanda Oliveira MD 05/18/2018 11:03 AM Signed Reviewed and agree. Thanks. Allergies As of Date: 05/18/2018 Noted Allergy Reaction ADHESIVE TAPE (ROSINS) 04/04/2015 5 - Intolerance Comments: Surgical tape leaves rash Irritates skin badly and blisters along with medical tape CATS 04/10/2016 14 - Other: See Comments Comments: Congested and itchy, difficulty breathing DOGS 04/10/2016 14 - Other: See Comments Comments: Congestion, sneezing, and difficulty breathing ORPHENADRINE 04/10/2016 16 - Unknown CAPSAICIN 03/02/2018 9 - Itching CIPROFLOXACIN 12/11/2011 14 - Other: See Comments Comments: Red, hot, itchy rash KEFLEX (CEPHALEXIN) 07/10/2016 4 - Hives Comments: Negative skin testing and successful completion of an oral amoxicillin challenge was completed on 03/02/2018. Cephalexin shares an almost identical R1 side chain to amoxicillin; therefore, it is unlikely that she would be at elevated risk for developing an IgE-mediated reaction (allergic/anaphylactic). If she should need this medication in the future, I would recommend giving the first dose in a supervised medical setting. If no reaction after 30 minutes, proceed with regular dosing. NIACIN 04/04/2015 16 - Unknown Comments: Pt states its niacin its niaspan REGLAN (METOCLOPRAMIDE HCL) 03/04/2017 14 - Other: See Comments Comments: Unable to sleep XANTHINES 10/18/2004 16 - Unknown ZOFRAN (ONDANSETRON HCL (PF)) 02/03/2018 9 - Itching Date Reviewed: 05/01/2018 Reviewed by: Lizette Acsota - Fully Assessed Reason for Visit: Transition Of Care [4074] Prescriptions as of 05/18/2018 Sig: ALBUTEROL SULFATE HFA 90 MCG/* Inhale 2 Puffs as instructed * LYRICA 100 MG CAPSULE TAKE 1 CAPSULE BY MOUTH THREE* BIPAP Bilevel PAP 16/12 cmH2O with * INSULIN GLARGINE (U-100) 100 * Inject 54 units subcutaneousl* OMEPRAZOLE 20 MG CAPSULE,MARIA EUGENIA* Take 1 capsule by mouth once * INSULIN GLARGINE (U-100) 100 * Inject 56 Units subcutaneousl* INSULIN LISPRO (U-200) 200 UN* Inject subcutaneously 14 unit* METOPROLOL TARTRATE 100 MG TA* TAKE 1 TABLET BY MOUTH TWICE * DULOXETINE 60 MG CAPSULE,MARIA EUGENIA* TAKE 1 CAPSULE BY MOUTH DAILY METFORMIN ER 500 MG TABLET,EX* TAKE 2 TABLETS BY MOUTH TWICE* PROMETHAZINE 25 MG TABLET Take 1 tablet by mouth every * ASPIRIN 81 MG TABLET,DELAYED * TAKE 1 TABLET BY MOUTH EVERY * CLAUDIA-KYLE 8.6 MG TABLET TAKE 1 TABLET BY MOUTH TWICE * STOOL SOFTENER 100 MG CAPSULE TAKE 1 CAPSULE BY MOUTH DAILY PSEUDOEPHEDRINE-GUAIFENESIN E* Take 1 tablet by mouth twice * ESTRADIOL 0.01% (0.1 MG/GRAM)* Apply pea-sized amount to per* COMPOUNDED PRESCRIPTION Please fit for BiPAP mask. BUX ULTRA BLUE TEST STRIP USE DIRECTED TO CHECK BLOO* M/A-COMUCH DELICA LANCETS 30 GA* USE TO CHECK BLOOD SUGAR 4-5 * COMPOUNDED PRESCRIPTION OCD Titration for portable ox* MUPIROCIN 2 % TOPICAL OINTMENT Apply 1 application to affect* CAPSAICIN 0.075 % TOPICAL CRE* Apply 1 application to affect* ULTICARE PEN NEEDLE 31 GAUGE * USE DIRECTED. TO INJECT IN* VITAMIN C 500 MG TABLET TAKE 1 TABLET BY MOUTH DAILY FERROUS GLUCONATE 324 MG (38 * TAKE 1 TABLET BY MOUTH DAILY * ISOSORBIDE MONONITRATE ER 60 * Take 1.5 tablets by mouth onc* ATORVASTATIN 40 MG TABLET TAKE 1 TABLET BY MOUTH DAILY DILTIAZEM SR 180 MG 24 HR CAP TAKE 1 CAPSULE BY MOUTH EVERY* LEVOTHYROXINE 100 MCG TABLET TAKE 1 TABLET BY MOUTH EVERY * ELIQUIS 2.5 MG TABLET TAKE 1 TABLET BY MOUTH TWICE * NITROGLYCERIN 0.4 MG SUBLINGU* DISSOLVE 1 TAB UNDER THE TONG* GLUCOSE 4 GRAM CHEWABLE TABLET Take 4 tablets by mouth as ne* OXYGEN (HOME THERAPY) Inhale 3 L/min as instructed * FLUTICASONE 50 MCG/ACTUATION * Use 2 Sprays in each nostril * FUROSEMIDE 40 MG TABLET Take 1 tablet by mouth twice * COMPOUNDED PRESCRIPTION Evaluation for diabetic shoes* INCONTINENCE PAD, LINER, DISP* 1 Device as needed (urinary i* COMPOUNDED PRESCRIPTION BLOOD PRESSURE CUFF FOR HOME * BLOOD-GLUCOSE METER KIT UAD to test blood sugar ALCOHOL SWABS UAD to clean skin before test* Problem List As Of Date 05/18/2018 Noted Resolved SUBJECTIVE TINNITUS [H93.19] INVALID FOR* PARESH treated with BiPAP [G47.33] INVALID FOR* Hyperlipidemia [E78.5] INVALID FOR* Coronary disease [I25.10] INVALID FOR* Diabetes mellitus, type II ([facility]) [E11.9] INVALID FOR* Morbid obesity ([facility]) [E66.01] Hypothyroidism [E03.9] Anxiety [F41.9] Sleep apnea [G47.30] 02/14/2017 Essential hypertension [I10] Coronary artery disease of [place] artery of stoney* AF (paroxysmal atrial fibrillation) ([facility]) [I48.* COPD (chronic obstructive pulmonary disease) (H* GERD without esophagitis [K21.9] Dysphagia [R13.10] Constipation [K59.00] DM type 2 (diabetes mellitus, type 2) ([facility]) [E1* 02/14/2017 Shortness of breath [R06.02] 02/14/2017 Arthritis [M19.90] More... CHF (congestive heart failure) ([facility]) [I50.9] BPPV (benign paroxysmal positional vertigo) [H8*INVALID FOR* RLS (restless legs syndrome) [G25.81] INVALID FOR* Iron deficiency concern: RE RLS [E61.1] INVALID FOR* Tubular adenoma [D36.9] INVALID FOR* Incontinence [R32] More... Gastroparesis [K31.84] INVALID FOR* Pre-op testing [Z01.818] INVALID FOR* More... Hypercapnia [R06.89] INVALID FOR* S/P coronary artery stent placement [Z95.5] INVALID FOR* Stage 3 chronic kidney disease [N18.3] INVALID FOR* Depression [F32.9] INVALID FOR* Obesity, Class II, BMI 35-39.9 [E66.9] INVALID FOR* Encounter Status:Closed by SAAD SILVESTRE on 05/18/18 CNPTOUTRROQUE Observed: 05/18/2018 Status: COMPLETED Source: [facility] 12:00 AM [facility] REPOSITORY Patient Outreach (FAMPWS) TAMIA PANDA ([id number]) 1955 F Date Time Provider Department 05/18/18 SAAD SILVESTRE (RN) [facility]AMPWS During your visit today, we recorded the following information about you: Saad Silvestre RN 05/18/2018 5:25 PM Signed PRIMARY CARE COORDINATION FOLLOW-UP NOTE Provider Action/FYI Pt may be discharged today BIPAP being set up with patient now at [facility] Patient identified by name and date of . YES Spoke to JOSEFINA Cook at [facility] Summary: Pt is being set up for BiPAP at the hospital now. Kurt will f/u at pt's home on Fri or She is still scheduled to be discharged today She will be going to stay with her sister on Friday. This is temporary and she still needs assistance in finding an apt. SW contacted Priyank Hurtado CM Cleaning Supervisor plan for next outreach: Will follow up after discharge Signature Saad Silvestre RN May 18, 2018 Nanda Oliveira MD 05/19/2018 11:50 AM Signed Reviewed. Allergies As of Date: 05/18/2018 Noted Allergy Reaction ADHESIVE TAPE (ROSINS) 04/04/2015 5 - Intolerance Comments: Surgical tape leaves rash Irritates skin badly and blisters along with medical tape CATS 04/10/2016 14 - Other: See Comments Comments: Congested and itchy, difficulty breathing DOGS 04/10/2016 14 - Other: See Comments Comments: Congestion, sneezing, and difficulty breathing ORPHENADRINE 04/10/2016 16 - Unknown CAPSAICIN 03/02/2018 9 - Itching CIPROFLOXACIN 12/11/2011 14 - Other: See Comments Comments: Red, hot, itchy rash KEFLEX (CEPHALEXIN) 07/10/2016 4 - Hives Comments: Negative skin testing and successful completion of an oral amoxicillin challenge was completed on 03/02/2018. Cephalexin shares an almost identical R1 side chain to amoxicillin; therefore, it is unlikely that she would be at elevated risk for developing an IgE-mediated reaction (allergic/anaphylactic). If she should need this medication in the future, I would recommend giving the first dose in a supervised medical setting. If no reaction after 30 minutes, proceed with regular dosing. NIACIN 04/04/2015 16 - Unknown Comments: Pt states its niacin its niaspan REGLAN (METOCLOPRAMIDE HCL) 03/04/2017 14 - Other: See Comments Comments: Unable to sleep XANTHINES 10/18/2004 16 - Unknown ZOFRAN (ONDANSETRON HCL (PF)) 02/03/2018 9 - Itching Date Reviewed: 05/01/2018 Reviewed by: Lizette Acosta - Fully Assessed Reason for Visit: Transition Of Care [4074] Prescriptions as of 05/18/2018 Sig: ALBUTEROL SULFATE HFA 90 MCG/* Inhale 2 Puffs as instructed * LYRICA 100 MG CAPSULE TAKE 1 CAPSULE BY MOUTH THREE* BIPAP Bilevel PAP 16/12 cmH2O with * INSULIN GLARGINE (U-100) 100 * Inject 54 units subcutaneousl* OMEPRAZOLE 20 MG CAPSULE,MARIA EUGENIA* Take 1 capsule by mouth once * INSULIN GLARGINE (U-100) 100 * Inject 56 Units subcutaneousl* INSULIN LISPRO (U-200) 200 UN* Inject subcutaneously 14 unit* METOPROLOL TARTRATE 100 MG TA* TAKE 1 TABLET BY MOUTH TWICE * DULOXETINE 60 MG CAPSULE,MARIA EUGENIA* TAKE 1 CAPSULE BY MOUTH DAILY METFORMIN ER 500 MG TABLET,EX* TAKE 2 TABLETS BY MOUTH TWICE* PROMETHAZINE 25 MG TABLET Take 1 tablet by mouth every * ASPIRIN 81 MG TABLET,DELAYED * TAKE 1 TABLET BY MOUTH EVERY * CLAUDIA-KYLE 8.6 MG TABLET TAKE 1 TABLET BY MOUTH TWICE * STOOL SOFTENER 100 MG CAPSULE TAKE 1 CAPSULE BY MOUTH DAILY PSEUDOEPHEDRINE-GUAIFENESIN E* Take 1 tablet by mouth twice * ESTRADIOL 0.01% (0.1 MG/GRAM)* Apply pea-sized amount to per* COMPOUNDED PRESCRIPTION Please fit for BiPAP mask. ONETOUCH ULTRA BLUE TEST STRIP USE DIRECTED TO CHECK BLOO* ONETOUCH DELICA LANCETS 30 GA* USE TO CHECK BLOOD SUGAR 4-5 * COMPOUNDED PRESCRIPTION OCD Titration for portable ox* MUPIROCIN 2 % TOPICAL OINTMENT Apply 1 application to affect* CAPSAICIN 0.075 % TOPICAL CRE* Apply 1 application to affect* ULTICARE PEN NEEDLE 31 GAUGE * USE DIRECTED. TO INJECT IN* VITAMIN C 500 MG TABLET TAKE 1 TABLET BY MOUTH DAILY FERROUS GLUCONATE 324 MG (38 * TAKE 1 TABLET BY MOUTH DAILY * ISOSORBIDE MONONITRATE ER 60 * Take 1.5 tablets by mouth onc* ATORVASTATIN 40 MG TABLET TAKE 1 TABLET BY MOUTH DAILY DILTIAZEM SR 180 MG 24 HR CAP TAKE 1 CAPSULE BY MOUTH EVERY* LEVOTHYROXINE 100 MCG TABLET TAKE 1 TABLET BY MOUTH EVERY * ELIQUIS 2.5 MG TABLET TAKE 1 TABLET BY MOUTH TWICE * NITROGLYCERIN 0.4 MG SUBLINGU* DISSOLVE 1 TAB UNDER THE TONG* GLUCOSE 4 GRAM CHEWABLE TABLET Take 4 tablets by mouth as ne* OXYGEN (HOME THERAPY) Inhale 3 L/min as instructed * FLUTICASONE 50 MCG/ACTUATION * Use 2 Sprays in each nostril * FUROSEMIDE 40 MG TABLET Take 1 tablet by mouth twice * COMPOUNDED PRESCRIPTION Evaluation for diabetic shoes* INCONTINENCE PAD, LINER, DISP* 1 Device as needed (urinary i* COMPOUNDED PRESCRIPTION BLOOD PRESSURE CUFF FOR HOME * BLOOD-GLUCOSE METER KIT UAD to test blood sugar ALCOHOL SWABS UAD to clean skin before test* Problem List As Of Date 05/18/2018 Noted Resolved SUBJECTIVE TINNITUS [H93.19] INVALID FOR* PARESH treated with BiPAP [G47.33] INVALID FOR* Hyperlipidemia [E78.5] INVALID FOR* Coronary disease [I25.10] INVALID FOR* Diabetes mellitus, type II ([facility]) [E11.9] INVALID FOR* Morbid obesity ([facility]) [E66.01] Hypothyroidism [E03.9] Anxiety [F41.9] Sleep apnea [G47.30] 02/14/2017 Essential hypertension [I10] Coronary artery disease of [place] artery of stoney* AF (paroxysmal atrial fibrillation) ([facility]) [I48.* COPD (chronic obstructive pulmonary disease) (H* GERD without esophagitis [K21.9] Dysphagia [R13.10] Constipation [K59.00] DM type 2 (diabetes mellitus, type 2) ([facility]) [E1* 02/14/2017 Shortness of breath [R06.02] 02/14/2017 Arthritis [M19.90] More... CHF (congestive heart failure) ([facility]) [I50.9] BPPV (benign paroxysmal positional vertigo) [H8*INVALID FOR* RLS (restless legs syndrome) [G25.81] INVALID FOR* Iron deficiency concern: RE RLS [E61.1] INVALID FOR* Tubular adenoma [D36.9] INVALID FOR* Incontinence [R32] More... Gastroparesis [K31.84] INVALID FOR* Pre-op testing [Z01.818] INVALID FOR* More... Hypercapnia [R06.89] INVALID FOR* S/P coronary artery stent placement [Z95.5] INVALID FOR* Stage 3 chronic kidney disease [N18.3] INVALID FOR* Depression [F32.9] INVALID FOR* Obesity, Class II, BMI 35-39.9 [E66.9] INVALID FOR* Encounter Status:Closed by CLAYTON SERNA MA on 05/19/18 BEDSIDE GLUCOSE Collected: 05/17/2018 Status: F Source: MEARS 9:23 PM [facility] REPOSITORY TYPE CODE TESTS RESULT OUT OF RANGE REFERENCE UNITS LAB L501.080 70-110 mg/dL Normal BEDSIDE GLU 98 Result Comment: MANAGEMENT OF PATIENT CARE PER NURSING PROTOCOL Performed By: #### L501.080 #### [facility] Point of Care [address] [place], [place] [id number] BLOOD GASES BY [facility] Collected: 05/17/2018 Status: F Source: KINJAL 5:42 PM [facility] REPOSITORY TYPE CODE TESTS RESULT OUT OF RANGE REFERENCE UNITS LAB L9000.9990 Normal BLD GAS TYPE ART LAB L9001.1000 Normal SITE L Radial LAB L9001.1010 Normal SALO TEST POS LAB L9001.1050 O2 Normal Delivery Dev Bi / C PAP LAB L9001.1070 RR Normal 12 LAB L9001.1074 Normal FI02 30 LAB L9001.1088 Normal IPAP 10 LAB L9001.1090 Normal EPAP 5 LAB L9001.1104 Normal Results To HOSP LAB L9001.1105 Normal Time Given 1741 LAB L9001.1110 7.35-7.45 pH Normal - I-STAT 7.45 LAB L9001.1210 35-45 mmHg High pCO2 - ISTAT 48.9 LAB L9001.1310 75-100 mmHG Normal PO2 I-STAT 91 LAB L9001.2300 22-26 mmol/L High HCO3 ISTAT 33.9 LAB L9001.2400 -2 to +2 mmol/L High BE ISTAT 10 LAB L9001.2415 mmol/L Normal TOTAL CO2 35 ISTAT LAB L9001.2425 95-99 % Normal SO2 ISTAT 97 Performed By: #### L9000.0800 #### [facility] Point of Care [address] [place] [address] BEDSIDE GLUCOSE Collected: 05/17/2018 Status: F Source: MEARS 4:21 PM [facility] REPOSITORY TYPE CODE TESTS RESULT OUT OF RANGE REFERENCE UNITS LAB L501.080 70-110 mg/dL Normal BEDSIDE GLU 73 Result Comment: MANAGEMENT OF PATIENT CARE PER NURSING PROTOCOL Performed By: #### L501.080 #### [facility] Point of Care [address] [facility] [place] [address] EMERGENCY DEPARTMENT Observed: 05/17/2018 Status: F Source: MEARS SUMMARY 3:15 PM [facility] REPOSITORY [facility] Medical Records Department [address] [facility] [place] [address] Emergency Department Summary 05/17/18 1328 MR#: [id number] Acct: [id number] Name: TAMIA PANDA Rep #: [id number] : 1955 63 From: Zuhair Lawrence DO PCP: Bhupendra Oliveira MD Status: ADM IN - ER Visit Summary Date of Service: 05/17/18 Chief Complaint: Possible stroke History of Present Illness: The patient is a 63 F who presents with difficulty speaking that began today. Patient was seen at 10:30 AM today and was talking normally. Patient took a nap and woke up at approximately 12:15 PM today and was unable to speak. EMS stated the patient was having some right-sided weakness. Patient currently does not have any focal weakness of her upper or lower extremities. Patient denies any shortness of breath. Patient denies any nausea or vomiting. Patient is aphasic and is otherwise a poor historian. Physical Examination: Vital signs showed blood pressure of 97/75 with a heart rate of 76. Respiratory rate was 23. Pulse oximeter is 97% on nasal cannula oxygen. Patient is awake, alert, but is aphasic. Pupils are equal, round, reactive to light bilaterally. Extraocular muscles are intact. Conjunctiva is clear. Oral mucosa is pink and moist. Neck is supple. Trachea is midline. There is no JVD noted. Cranial nerves II through XII are grossly intact. Strength is 5/5 bilaterally in the upper and lower extremities. There are no apparent sensory deficits noted. NIH scale is 5 due to the aphasia. The remaining physical exam is within normal limits. Test Results: CT scan of the brain was obtained and was normal. EKG showed atrial fibrillation with a rate of 77. There are no acute ST or T-wave changes noted. CBC was within normal limits. BGT was 116. INR was 1.3. Troponin was normal. Basic metabolic profile showed a mild hypokalemia of 3.3. Portable chest x-ray does not show any acute cardiopulmonary process. Arterial blood gas showed a pH of 7.458 PCO2 was 51, PO2 was 85, bicarb was 36.1, oxygen saturation was 97%. Emergency Department Course and Treatment: Case was discussed with neurology. Patient does not meet criteria for TPA because she took her Eliquis today. CTA of the brain was obtained. There is no acute aneurysm or embolism. Repeat BGT was 32. Patient was given 1 amp of D50. Case was discussed with the hospitalist. Patient will be admitted to PCU. Family understood and was agreeable with the plan. All questions were answered. Disposition: Admit to hospital Impression: Acute stroke, hypoglycemia, hypercarbia This note was generated with Cure[employer] dictation software. It may contain incorrect words, spelling, and punctuation that were not noted in review of the chart prior to signing ED Disposition - Plan for ED Patient: Disposition: Acute Care Hospital [facility] Chief Complaint: Neuro S/Sx Diagnosis: Aphasia, Hypoglycemia, Hypercarbia Referrals: Bhupendra Oliveira MD [Primary Care Provider] - What to do if you have Problems For any increased pain, shortness of breath, bleeding, nausea or vomiting, chest pain, or any unexpected problems, contact your Primary Care Provider. Call [facility] ([phone]) or report to the closest Emergency Room. Call 911 if necessary. 05/17/18 1671 <Electronically signed by Zuhair Lawrence DO> Date Zuhair Lawrence DO Cornelio Signature (If Indicated): Date CC: Bhupendra Oliveira MD BLOOD GASES BY [facility] Collected: 05/17/2018 Status: F Source: KINJAL 3:05 PM [facility] REPOSITORY TYPE CODE TESTS RESULT OUT OF RANGE REFERENCE UNITS LAB L9000.9990 Normal BLD GAS TYPE ART LAB L9001.1000 Normal SITE L Radial LAB L9001.1010 Normal SALO TEST POS LAB L9001.1050 O2 Normal Delivery Dev Nasal Can LAB L9001.1055 /min Normal LPM 2.0 LAB L9001.1104 Normal Results To ED LAB L9001.1105 Normal Time Given 1445 LAB L9001.1110 7.35-7.45 High pH - I-STAT 7.46 LAB L9001.1210 35-45 mmHg High pCO2 - ISTAT 51.0 LAB L9001.1310 75-100 mmHG Normal PO2 I-STAT 85 LAB L9001.2300 22-26 mmol/L High HCO3 ISTAT 36.1 LAB L9001.2400 -2 to +2 mmol/L High BE ISTAT 12 LAB L9001.2415 mmol/L Normal TOTAL CO2 38 ISTAT LAB L9001.2425 95-99 % Normal SO2 ISTAT 97 Performed By: #### L9000.0800 #### [facility] Point of Care [address] [place] [address] BEDSIDE GLUCOSE Collected: 05/17/2018 Status: F Source: KINJAL 2:55 PM [facility] REPOSITORY TYPE CODE TESTS RESULT OUT OF REFERENCE UNITS RANGE LAB L501.080 70-110 mg/dL Low alert BEDSIDE GLU 34 Result Comment: Dr Yousif Followed MANAGEMENT OF PATIENT CARE PER NURSING PROTOCOL Performed By: #### L501.080 #### [facility] Point of Care [address] [place] [address] CTA HEAD W/WO Observed: 05/17/2018 Status: F Source: MEARS CONTRAST 1:38 PM [facility] REPOSITORY [facility] Imaging Services [address] [place] [address] CTA Head W/WO Contrast MR#: [id number] Acct: [id number] Name: TAMIA PANDA Rep #: [id number] : 1955 F 63 From: Zenobia Nunez PCP: Bhupendra Oliveira MD Status: REG ER Study: CTA Head W/WO Contrast Date of Exam: 05/17/18 Exam# [id number] Ordering Dr: Zuhair Lawrence DO STUDY: CTA OF THE BRAIN REASON FOR EXAM: Female, 63 years old. Weakness, slurred speech . RADIATION DOSAGE (If Supplied By Facility): CTDIvol = ( 23.41 ) mGy, DLP = ( 440.96 ) mGycm TECHNIQUE: CT angiography was performed with a multi-detector CT scanner. Data acquisition was obtained from the skull base through the vertex following intravenous administration of ml of . MIP images were reconstructed from the axial data set. Post-processing of the angiographic images was performed, with multiplanar reformation and 3D reconstruction. Individualized dose optimization techniques were used for this CT. COMPARISON: None. FINDINGS: Normal bilateral petrous carotid arteries. Normal right cavernous carotid artery with a normal supraclinoid bifurcation. Normal left cavernous carotid artery with a normal supraclinoid bifurcation. Normal right A1 segments of the anterior cerebral artery. Normal left A1 segments of the anterior cerebral artery. Normal intact anterior communicating artery (ACOM). Normal bilateral A2 segments of the anterior cerebral arteries. Normal right M1 and M2 segments of the middle cerebral arteries, with a normal M1 bifurcation. Normal left M1 and M2 segments of the middle cerebral arteries, with a normal M1 bifurcation. Normal right posterior communicating artery (PCOM). Normal left posterior communicating artery (PCOM). Normal bilateral vertebral arteries. Normal basilar artery with a normal basilar bifurcation. The visualized bilateral superior cerebellar (SCA) arteries are normal. Normal bilateral P1, P2 and visualized P3 segments of the posterior cerebral arteries. CT/CTA Head W/WO Contrast IMPRESSION: Normal [place] of [place] without a demonstrated aneurysm or hemodynamically significant stenosis. Electronically Signed: Zenobia Nunez MD at 14:48 EDT Tel , Service support , CC: Bhupendra Oliveira MD; Zuhair Lawrence DO Pipe Recovery Specialist: Signed CBC W/DIFF, AUTOMATED Collected: 05/17/2018 Status: F Source: KINJAL 1:09 PM [facility] REPOSITORY TYPE CODE TESTS RESULT OUT OF RANGE REFERENCE UNITS LAB L100.1000 4.4-11.0 K/mm3 Normal WBC 7.7 LAB L100.1200 4.2-5.4 M/mm3 Normal RBC 4.46 LAB L100.1300 12.0-15.0 g/dl Normal HGB 13.0 LAB L100.1400 37-47 % Normal HCT 41.5 LAB L100.1500 81-99 fL Normal MCV 93.0 LAB L100.1600 27.0-32.0 pg Normal MCH 29.1 LAB L100.1700 32-36 g/gl Low MCHC 31.3 LAB L100.1810 11.6-14.6 % High RDW CV 14.9 LAB L100.1820 35.1-43.9 fl High RDW SD 49.7 LAB L100.1900 150-450 K/mm3 Normal PLT 208 LAB L100.2000 6.2-12.0 fl Normal MPV 10.4 LAB L100.2100 47-70 % Normal NEUT% 68.9 LAB L100.2200 19-41 % Low LY% 14.8 LAB L100.2300 0-10 % High MONO% 11.7 LAB L100.2400 0-5 % Normal EO% 4.0 LAB L100.2500 0-1 % Normal BASO% 0.3 LAB L100.2550 0.0-0.9 % Normal IM GRAN % 0.300 Result Comment: IG% - Immature Granulocytes (promyelocytes, myelocytes and metamyelocytes) > 1% indicates that a LEFT SHIFT is Present. LAB L100.2620 2.0-7.7 X10 3/uL Normal Absolute Neut 5.3 LAB L100.2720 0.83-4.51 X10 3/ul Normal Absolute Lymph 1.14 Performed By: #### L100.0100 #### [facility] [address] [place], [address] PROTHROMBIN TIME W/INR Collected: 05/17/2018 Status: F Source: MEARS 1:09 PM [facility] REPOSITORY TYPE CODE TESTS RESULT OUT OF RANGE REFERENCE UNITS LAB L300.4150 11.7-14.9 SECONDS High PROTIME 16.0 LAB L300.4200 Normal INR 1.3 Performed By: #### L300.3900, L300.4310 #### [facility] [address] [facility] [address] PARTIAL THROMBOPLAST Collected: 05/17/2018 Status: F Source: MEARS TIME 1:09 PM [facility] REPOSITORY TYPE CODE TESTS RESULT OUT OF RANGE REFERENCE UNITS LAB L300.4310 24.1-36.2 Seconds Normal PTT 33.2 Performed By: #### L300.3900, L300.4310 #### [facility] [address] [facility] [id number] BASIC METABOLIC Collected: 05/17/2018 Status: F Source: KINJAL PROFILE (BMP) 1:09 PM [facility] REPOSITORY TYPE CODE TESTS RESULT OUT OF RANGE REFERENCE UNITS LAB L501.0100 74-106 mg/dL Normal GLU 78 Result Comment: Please note revised GLUCOSE reference range effective 2017. LAB L501.1000 7-18 mg/dL Normal BUN 9 LAB L501.1100 0.55-1.02 mg/dL Normal CREAT,SERUM 0.81 Result Comment: The validity of the calculated GFR AND GFRAA in patients over 70 years has not been determined. Clinical correlation is essential. LAB L501.1110 >60 mL/min Normal EST GFR 76 Result Comment: Non- GFR Calc LAB L501.1115 >60 mL/min Normal EST GFR - AA 92 Result Comment: GFR Calc LAB L501.1255 ml/min Normal Estimated CRCL 61.39 LAB L501.1300 10-20 RATIO Normal BUN/CRE 11.2 LAB L501.2200 8.5-10 mg/dL Normal .1 CA 8.6 LAB L501.5300 136-14 mmol/L Normal 5 NA 145 LAB L501.5600 3.5-5. mmol/L Low 1 K 3.3 Result Comment: Slight Hemolysis, Result may be falsely increased. LAB L501.5900 98-107 mmol/L Normal CL 103 LAB L501.6100 21.0-32.0 mmol/L Normal CO2 31.0 LAB L501.6200 5-15 Normal GAP 11 Performed By: #### L500.2500, L501.4010 #### [facility] [address] [facility] [place], [address] TROPONIN-I Collected: 05/17/2018 Status: F Source: MEARS 1:09 PM [facility] REPOSITORY TYPE CODE TESTS RESULT OUT OF RANGE REFERENCE UNITS LAB L501.4010 <0.045 ng/mL Normal < 0.015 TROPONIN-I Result Comment: TROPONIN-I EXPECTED VALUES <0.045 Negative 0.045 - 0.590 Consistent with Cardiac Damage > OR = 0.600 Critical Value Not every elevated troponin is indicative of DC. These values should be used with clinical judgement in examining the patient's clinical picture for diagnosis. To establish a diagnosis of DC versus myocardial injury, there must be a demonstrated rise and/or fall in the troponin values, in addition to ischemic symptoms, EKG changes, new regional wall motion abnormality, and/or angiographical evidence. PLEASE NOTE: REFERENCE RANGES EDITED 18 Performed By: #### L500.2500, L501.4010 #### [facility] [address] [facility]. [place], [place], [address] BRAIN/HEAD WITHOUT Observed: 05/17/2018 Status: F Source: MEARS CONTRAST 12:43 PM [facility] REPOSITORY [facility] Imaging Services [address] [place] [id number] Brain/Head without Contrast MR#: [id number] Acct: [id number] Name: TAMIA PANDA Rep #: [id number] : 1955 F 63 From: Zenobia Nunez PCP: Bhupendra Oliveira MD Status: REG ER Study: Brain/Head without Contrast Date of Exam: 05/17/18 Exam# [id number] Ordering Dr: Zuhair Lawrence DO STUDY: CT BRAIN WITHOUT CONTRAST REASON FOR EXAM: Female, 63 years old. CVA. PRIOR CVA RADIATION DOSAGE (If Supplied By Facility): CTDIvol = ( 44.99 ) mGy, DLP = ( 745.49 ) mGycm TECHNIQUE: Transaxial CT imaging of the brain was performed without administration of intravenous contrast material. Individualized dose optimization techniques were used for this CT. COMPARISON: None. FINDINGS: There is cerebral atrophy with widening of the extra-axial spaces and ventricular dilatation. There are areas of decreased attenuation within the white matter tracts of the supratentorial brain, consistent with microvascular disease changes. There is no intracranial hemorrhage. There are no findings of an acute ischemic infarction. Normal soft tissue structures. Normal visualized paranasal sinuses. CT/Brain/Head without Contrast IMPRESSION: Chronic involutional changes of the brain. N.B. : The above information has been verbally conveyed by Zenobia Nunez MD to Zuhair Lawrence, Referring Physician, on 05/17/2018 12:58:21 (ET). Electronically Signed: Zenobia Nunez MD at 12:58 EDT Tel , Service support , CC: Bhupendra Oliveira MD; Zuhair Lawrence DO Pipe Recovery Specialist: Signed CHEST 1 VIEW Observed: 05/17/2018 Status: F Source: KINJAL 12:43 PM [facility] REPOSITORY [facility] Imaging Services [facility] [place] [address] Chest 1 View MR#: [id number] Acct: [id number] Name: TAMIA PANDA Rep #: [id number] : 1955 F 63 From: Purvi Bradley MD PCP: Bhupendra Oliveira MD Status: REG ER Study: Chest 1 View Date of Exam: 05/17/18 Exam# [id number] Ordering Dr: Zuhair Lawrence DO STUDY: X-RAY CHEST REASON FOR EXAM: Female, 63 years old. Weakness, slurred speech TECHNIQUE: Single AP portable view of the chest. COMPARISON: April 04, 2018 chest x-ray FINDINGS: Lungs are underexpanded. There is no demonstrated pleural abnormality. Normal size heart. Normal mediastinum and tracie. Normal visualized pulmonary arteries. Normal visualized aortic arch and descending thoracic aorta. There are diffuse degenerative changes of the visualized thoracic spine. Normal visualized ribs, clavicles, and shoulders. There is no demonstrated abnormality of the visualized soft tissue structures of the upper abdomen. RAD/Chest 1 View IMPRESSION: Degenerative changes, as described above. No demonstrated acute cardiopulmonary process. Electronically Signed: Purvi Bradley MD at 13:30 EDT Tel , Service support , CC: Bhupendra Oliveira MD; Zuhair Lawrence DO Pipe Recovery Specialist: Signed BEDSIDE GLUCOSE Collected: 05/17/2018 Status: F Source: MEARS 12:33 PM [facility] REPOSITORY TYPE CODE TESTS RESULT OUT OF REFERENCE UNITS RANGE LAB L501.080 70-110 mg/dL High BEDSIDE GLU 116 Result Comment: MANAGEMENT OF PATIENT CARE PER NURSING PROTOCOL Performed By: #### L501.080 #### [facility] Point [place] [address] PROGRESS Observed: 05/06/2018 Status: COMPLETED Source: RUSSELL 2:22 PM [facility] REPOSITORY HNO ID: [id number] Author: Akiko Lacko FIRE BOSS Service: (none) Author Type: (none) Type: Progress Notes Filed: 05/06/2018 2:22 PM Note Text: Orders faxed to [facility] for BiPAP machine . Pt is scheduled in office on 06/11 for compliance follow up. IESHA Observed: 05/06/2018 Status: COMPLETED Source: RUSSELL 1:40 PM [facility] REPOSITORY Office Visit (NEMOWS) TAMIA PANDA ([id number]) 1955 F Date Time Provider Department 05/06/18 1:40 PM SHAN MIDDLETON During your visit today, we recorded the following information about you: Pulse Respiration Blood pressure 66/minute 16/minute 100/69 Shan Middleton MD 05/06/2018 1:57 PM Signed [facility] Follow-up/Established patient visit Reason for Visit at [place] : yearly Time Out: 1:56 Time In: 1:46 For this visit, a total ocrr-cw-exmy time with the patient comprised 10 minutes, with at least 50% of that time devoted to wiyq-zw-fyyr counseling and coordination of care, with especial emphasis placed on answering the patient?s and/or family?s questions in a form that they can understand and appreciate. Relevant Medications, allergies, hx Reviewed: yes Date of last visit: 03/04/17 with Tahira Insurance: [employer] Medicare Home Location: [place] Psychological/Psychiatric Developments: Slow going. Medical and Neurological Developments: The neuropathy is pretty bad. Feet are awful. Pins an needles are back. Insomnia: no RLS: on lyrica, pins and needles away; but the gets stilll the toes having difficulty with burning sensation. Other: na SLEEP-WAKE SCHEDULE Bedtime: no set time, but been thinking about going to bed earlier. Will watch the news at 11 SLEEP LATENCY: quick Wake after Sleep Onset Only occ some wakes up earlier in the morning for brb. Wake time: 7 am through the week, with an alarm. On weekends, she oversleep Sleep Quality: good She most every day, sometime for house. Average total sleep time (in a 24 hour period): many hours. Obstructive Sleep Apnea Issues: Most Recent Apnea-Hypopnea Index: 22 PAP Pressure Setting(s) 06/08 with 3 L DME Company: [employer] Mask Type: FFM Mask Issues: Will often be off. Download Report: na Self-Reported Compliance: Having trouble Benefit: mckay ALLERGIES Allergen Reactions - Adhesive Tape (Adrienne* Intolerance Surgical tape leaves rash Irritates skin badly and blisters along with medical tape - Cats Other: See Comments Congested and itchy, difficulty breathing - Dogs Other: See Comments Congestion, sneezing, and difficulty breathing - Orphenadrine Unknown - Capsaicin Itching - Ciprofloxacin Other: See Comments Red, hot, itchy rash - Keflex [Cephalexin] Hives Negative skin testing and successful completion of an oral amoxicillin challenge was completed on 03/02/2018. Cephalexin shares an almost identical R1 side chain to amoxicillin; therefore, it is unlikely that she would be at elevated risk for developing an IgE-mediated reaction (allergic/anaphylactic). If she should need this medication in the future, I would recommend giving the first dose in a supervised medical setting. If no reaction after 30 minutes, proceed with regular dosing. - Niacin Unknown Pt states its niacin its niaspan - Reglan [Metoclopram* Other: See Comments Unable to sleep - Xanthines Unknown - Zofran [Ondansetron* Itching CURRENT MEDICATIONS: insulin glargine (LANTUS SOLOSTAR U-100 INSULIN) 100 unit/mL (3 mL) inpn Inject 54 units subcutaneously twice daily omeprazole (PRILOSEC) 20 mg capsule Take 1 capsule by mouth once daily. insulin glargine (LANTUS SOLOSTAR U-100 INSULIN) 100 unit/mL (3 mL) inpn Inject 56 Units subcutaneously twice daily. insulin lispro (HUMALOG KWIKPEN INSULIN) 200 unit/mL (3 mL) injection Inject subcutaneously 14 units with breakfast, 22 units with lunch, and 24 units with dinner metoprolol tartrate, short acting, (LOPRESSOR) 100 mg tablet TAKE 1 TABLET BY MOUTH TWICE A DAY DULoxetine (CYMBALTA) 60 mg capsule TAKE 1 CAPSULE BY MOUTH DAILY metFORMIN ER (GLUCOPHAGE XR) 500 mg 24 hr tablet TAKE 2 TABLETS BY MOUTH TWICE A DAY promethazine (PHENERGAN) 25 mg tablet Take 1 tablet by mouth every 6 hours as needed. aspirin, enteric coated (ASPIRIN, ENTERIC COATED) 81 mg EC tablet TAKE 1 TABLET BY MOUTH EVERY MORNING CLAUDIA-KYLE 8.6 mg tab TAKE 1 TABLET BY MOUTH TWICE A DAY STOOL SOFTENER 100 mg capsule TAKE 1 CAPSULE BY MOUTH DAILY Pseudoephedrine-guaiFENesin (MUCINEX D MAXIMUM STRENGTH) 120- 1,200 mg Tb12 Take 1 tablet by mouth twice daily. estradiol (ESTRACE) 0.01 % (0.1 mg/gram) vaginal cream Apply pea-sized amount to perineum and 1 applicator vaginally Mon, Wed, Fri for atrophic vaginitis. COMPOUNDED PRESCRIPTION Please fit for BiPAP mask. ONETOUCH ULTRA BLUE TEST STRIP test strip USE DIRECTED TO CHECK BLOOD SUGAR 4-5 TIMES DAILY ONETOUCH DELICA LANCETS 30 gauge misc USE TO CHECK BLOOD SUGAR 4-5 TIMES DALIY BIPAP Bilevel PAP 15/11 cmH2O with 2 LPM oxygen bleed in, mask, tubing, filters, heated humidity, lifetime supplies. Please fax 30 day compliance download to [phone]. Dx: G47.33, G47.39. DME: [facility] COMPOUNDED PRESCRIPTION OCD Titration for portable oxygen concentrator Oxygen Flow Rate between 2-6 liters. To keep oxygen saturation at or above 92%. mupirocin (BACTROBAN) 2 % ointment Apply 1 application to affected area three times daily. LYRICA 100 mg capsule TAKE 1 CAPSULE BY MOUTH THREE TIMES A DAY capsaicin (ZOSTRIX-HP) 0.075 % topical cream Apply 1 application to affected area four times daily. ULTICARE PEN NEEDLE 31 gauge x 02/04 ndle USE DIRECTED. TO INJECT INSULINS VITAMIN C 500 mg tablet TAKE 1 TABLET BY MOUTH DAILY Ferrous Gluconate (FERGON) 324 mg (38 mg iron) tablet TAKE 1 TABLET BY MOUTH DAILY WITH BREAKFAST isosorbide mononitrate ER (IMDUR) 60 mg 24 hr tablet Take 1.5 tablets by mouth once daily. In the morning atorvastatin (LIPITOR) 40 mg tablet TAKE 1 TABLET BY MOUTH DAILY diltiazem CD (CARDIZEM CD, CARTIA XT) 180 mg 24 hr capsule TAKE 1 CAPSULE BY MOUTH EVERY MORNING levothyroxine (SYNTHROID) 100 mcg tablet TAKE 1 TABLET BY MOUTH EVERY MORNING ELIQUIS 2.5 mg tab tab(s) TAKE 1 TABLET BY MOUTH TWICE A DAY nitroglycerin sublingual (NITROQUICK) 0.4 mg SL tablet DISSOLVE 1 TAB UNDER THE TONGUE NEEDED FOR CHEST PAIN EVERY 5 MINUTES UP TO 3 TIMES. IF NO RELIEF CALL 911. glucose 4 gram chewable tablet Take 4 tablets by mouth as needed for Low Blood Sugar. OXYGEN, HOME THERAPY, Inhale 3 L/min as instructed as directed. fluticasone (FLONASE) 50 mcg/actuation nasal spray Use 2 Sprays in each nostril once daily. furosemide (LASIX) 40 mg tablet Take 1 tablet by mouth twice daily. albuterol HFA (VENTOLIN HFA) 90 mcg/actuation inhaler Inhale 2 Puffs as instructed every 4 hours as needed for Wheezing/Shortness of Breath. COMPOUNDED PRESCRIPTION Evaluation for diabetic shoes and inserts Dx: E11.65, Z79.4 Incontinence Pad, Liner, Disp pads 1 Device as needed (urinary incontinence). Prevail incontinence pads. Dx: urinary incontinence. Size: small Blood Pressure Cuff - Home Use BLOOD PRESSURE CUFF FOR HOME USE. DX: LABILE BLOOD PRESSURE Blood-Glucose Meter (ONETOUCH ULTRA2) monitoring kit UAD to test blood sugar Alcohol Swabs padm UAD to clean skin before testing blood sugar and injecting insulins. Vital signs: BP 100/69 (BP Site: Right Arm, BP Position: Sitting, BP Cuff Size: Large Adult) Pulse 66 Resp 16 MENTAL STATUS General appearance: in wellchair, wearing nasal canula, having cane present Grooming poor, but combed hear Orientation: Ox3 Memory: Grossly intact Kinetics: Slower, [id number] Eye Contact: some Demeanor plaintive Speech: Articulate, thick, Thought Stream plodding but logidal Thought Content about symptoms Mood: sometimes a bit champion Affect: Tired plaintive. Suicidal Ideation: denies Homocidal Ideation: No Psychosis no Insight fair Judgment fair ENT : na Abdomen: pannus Neuro: Gait and station in wheelchair, Strength grossly normal in all extremities. Coordination grossly intact. No tremors noted. Sleep Disorder Dx Impression: Obstructive sleep apnea - moderate to severe Other Conditioning Diagnoses: CHF DM2 CAD COPD PAF Morbid obesity Case Formulation / [place] (may include pt's hopes, fears, expectations, concerns): The new settings are indicated from [facility]; Time for a new DME locally Actions taken: Motivational Interviewing aspects taken Hearing ougt PDMP Aspect: na New order for bipap 06/09 with 2 liters. Plan: See how doing on new arrangement Follow up with YRIS Ba in 6 weeks. . MD Akiko Moore LPN 05/06/2018 2:22 PM Signed Orders faxed to [facility] for BiPAP machine . Pt is scheduled in office on 06/11 for compliance follow up. Referring Provider: NANDA OLIVEIRA) [[id number]] Allergies As of Date: 05/06/2018 Noted Allergy Reaction ADHESIVE TAPE (ROSINS) 04/04/2015 5 - Intolerance Comments: Surgical tape leaves rash Irritates skin badly and blisters along with medical tape CATS 04/10/2016 14 - Other: See Comments Comments: Congested and itchy, difficulty breathing DOGS 04/10/2016 14 - Other: See Comments Comments: Congestion, sneezing, and difficulty breathing ORPHENADRINE 04/10/2016 16 - Unknown CAPSAICIN 03/02/2018 9 - Itching CIPROFLOXACIN 12/11/2011 14 - Other: See Comments Comments: Red, hot, itchy rash KEFLEX (CEPHALEXIN) 07/10/2016 4 - Hives Comments: Negative skin testing and successful completion of an oral amoxicillin challenge was completed on 03/02/2018. Cephalexin shares an almost identical R1 side chain to amoxicillin; therefore, it is unlikely that she would be at elevated risk for developing an IgE-mediated reaction (allergic/anaphylactic). If she should need this medication in the future, I would recommend giving the first dose in a supervised medical setting. If no reaction after 30 minutes, proceed with regular dosing. NIACIN 04/04/2015 16 - Unknown Comments: Pt states its niacin its niaspan REGLAN (METOCLOPRAMIDE HCL) 03/04/2017 14 - Other: See Comments Comments: Unable to sleep XANTHINES 10/18/2004 16 - Unknown ZOFRAN (ONDANSETRON HCL (PF)) 02/03/2018 9 - Itching Date Reviewed: 05/01/2018 Reviewed by: Lizette Acosta - Fully Assessed Reason for Visit: Established Patient [175] Cmt: review titration sleep study Primary Visit Diagnosis:PARESH treated with BiPAP [G47.33] Other Visit Diagnoses:Coronary artery disease with unstable angina pectoris, unspecified vessel or lesion type, unspecified whether port lions or transplanted heart ([facility]) [I25.110] Essential hypertension [I10] Chronic obstructive pulmonary disease, unspecified COPD type ([facility]) [J44.9] Chronic congestive heart failure, unspecified heart failure type ([facility]) [I50.9] Order(s):BIPAPBilevel PAP 16/12 cmH2O with 2 LPM oxygen bleed in, mask, tubing, filters, heated humidity, lifetime supplies. Dx: G47.33, G47.39.Disp: 1 DeviceRfl: 0 Prescriptions as of 05/06/2018 Sig: LYRICA 100 MG CAPSULE TAKE 1 CAPSULE BY MOUTH THREE* BIPAP Bilevel PAP 16/12 cmH2O with * INSULIN GLARGINE (U-100) 100 * Inject 54 units subcutaneousl* OMEPRAZOLE 20 MG CAPSULE,MARIA EUGENIA* Take 1 capsule by mouth once * INSULIN GLARGINE (U-100) 100 * Inject 56 Units subcutaneousl* INSULIN LISPRO (U-200) 200 UN* Inject subcutaneously 14 unit* METOPROLOL TARTRATE 100 MG TA* TAKE 1 TABLET BY MOUTH TWICE * DULOXETINE 60 MG CAPSULE,MARIA EUGENIA* TAKE 1 CAPSULE BY MOUTH DAILY METFORMIN ER 500 MG TABLET,EX* TAKE 2 TABLETS BY MOUTH TWICE* PROMETHAZINE 25 MG TABLET Take 1 tablet by mouth every * ASPIRIN 81 MG TABLET,DELAYED * TAKE 1 TABLET BY MOUTH EVERY * CLAUDIA-KYLE 8.6 MG TABLET TAKE 1 TABLET BY MOUTH TWICE * STOOL SOFTENER 100 MG CAPSULE TAKE 1 CAPSULE BY MOUTH DAILY PSEUDOEPHEDRINE-GUAIFENESIN E* Take 1 tablet by mouth twice * ESTRADIOL 0.01% (0.1 MG/GRAM)* Apply pea-sized amount to per* COMPOUNDED PRESCRIPTION Please fit for BiPAP mask. ONETOUCH ULTRA BLUE TEST STRIP USE DIRECTED TO CHECK BLOO* ONETOUCH DELICA LANCETS 30 GA* USE TO CHECK BLOOD SUGAR 4-5 * COMPOUNDED PRESCRIPTION OCD Titration for portable ox* MUPIROCIN 2 % TOPICAL OINTMENT Apply 1 application to affect* X LYRICA 100 MG CAPSULE TAKE 1 CAPSULE BY MOUTH THREE* CAPSAICIN 0.075 % TOPICAL CRE* Apply 1 application to affect* ULTICARE PEN NEEDLE 31 GAUGE * USE DIRECTED. TO INJECT IN* VITAMIN C 500 MG TABLET TAKE 1 TABLET BY MOUTH DAILY FERROUS GLUCONATE 324 MG (38 * TAKE 1 TABLET BY MOUTH DAILY * ISOSORBIDE MONONITRATE ER 60 * Take 1.5 tablets by mouth onc* ATORVASTATIN 40 MG TABLET TAKE 1 TABLET BY MOUTH DAILY DILTIAZEM SR 180 MG 24 HR CAP TAKE 1 CAPSULE BY MOUTH EVERY* LEVOTHYROXINE 100 MCG TABLET TAKE 1 TABLET BY MOUTH EVERY * ELIQUIS 2.5 MG TABLET TAKE 1 TABLET BY MOUTH TWICE * NITROGLYCERIN 0.4 MG SUBLINGU* DISSOLVE 1 TAB UNDER THE TONG* GLUCOSE 4 GRAM CHEWABLE TABLET Take 4 tablets by mouth as ne* OXYGEN (HOME THERAPY) Inhale 3 L/min as instructed * FLUTICASONE 50 MCG/ACTUATION * Use 2 Sprays in each nostril * FUROSEMIDE 40 MG TABLET Take 1 tablet by mouth twice * ALBUTEROL SULFATE HFA 90 MCG/* Inhale 2 Puffs as instructed * COMPOUNDED PRESCRIPTION Evaluation for diabetic shoes* INCONTINENCE PAD, LINER, DISP* 1 Device as needed (urinary i* COMPOUNDED PRESCRIPTION BLOOD PRESSURE CUFF FOR HOME * BLOOD-GLUCOSE METER KIT UAD to test blood sugar ALCOHOL SWABS UAD to clean skin before test* Problem List As Of Date 05/06/2018 Noted Resolved SUBJECTIVE TINNITUS [H93.19] INVALID FOR* PARESH treated with BiPAP [G47.33] INVALID FOR* Hyperlipidemia [E78.5] INVALID FOR* Coronary disease [I25.10] INVALID FOR* Diabetes mellitus, type II ([facility]) [E11.9] INVALID FOR* Morbid obesity ([facility]) [E66.01] Hypothyroidism [E03.9] Anxiety [F41.9] Sleep apnea [G47.30] 02/14/2017 Essential hypertension [I10] Coronary artery disease of port lions artery of stoney* AF (paroxysmal atrial fibrillation) ([facility]) [I48.* COPD (chronic obstructive pulmonary disease) (H* GERD without esophagitis [K21.9] Dysphagia [R13.10] Constipation [K59.00] DM type 2 (diabetes mellitus, type 2) ([facility]) [E1* 02/14/2017 Shortness of breath [R06.02] 02/14/2017 Arthritis [M19.90] More... CHF (congestive heart failure) ([facility]) [I50.9] BPPV (benign paroxysmal positional vertigo) [H8*INVALID FOR* RLS (restless legs syndrome) [G25.81] INVALID FOR* Iron deficiency concern: RE RLS [E61.1] INVALID FOR* Tubular adenoma [D36.9] INVALID FOR* Incontinence [R32] More... Gastroparesis [K31.84] INVALID FOR* Pre-op testing [Z01.818] INVALID FOR* More... Hypercapnia [R06.89] INVALID FOR* S/P coronary artery stent placement [Z95.5] INVALID FOR* Stage 3 chronic kidney disease [N18.3] INVALID FOR* Depression [F32.9] INVALID FOR* Obesity, Class II, BMI 35-39.9 [E66.9] INVALID FOR* Prescriptions ordered this encounter Disp Refills Start End BIPAP 1 De* 0 05/06/2018 Class: Print RX Sig: Bilevel PAP 16/12 cmH2O with 2 LPM oxygen bleed in, mask, tubing, filters, heated humidity, lifetime supplies. Dx: G47.33, G47.39. Medications Discontinued During This Encounter BIPAP 1 De* 0 01/15/2018 05/06/2018 Class: Print RX Sig: Bilevel PAP 15/11 cmH2O with 2 LPM oxygen bleed in, mask, tubing, filters, heated humidity, lifetime supplies. Please fax 30 day compliance download to [phone]. Dx: G47.33, G47.39. DME: [facility]: Reason for discontinue is not on file. Disposition: Return in about 6 weeks (around 06/17/2018). Follow-up and Disposition History Recorded Encounter Status:Closed by MD SHAN MIDDLETON on 05/06/18 PROGRESS Observed: 05/06/2018 Status: COMPLETED Source: RUSSELL 7:56 AM [facility] REPOSITORY HNO ID: [id number] Author: Shan Middleton Service: (none) Author Type: Physician Type: Progress Notes Filed: 05/06/2018 1:57 PM Note Text: [facility] Follow-up/Established patient visit Reason for Visit at [place] : yearly Time Out: 1:56 Time In: 1:46 For this visit, a total kjel-ko-huxh time with the patient comprised 10 minutes, with at least 50% of that time devoted to zhpv-uf-bycq counseling and coordination of care, with especial emphasis placed on answering the patient?s and/or family?s questions in a form that they can understand and appreciate. Relevant Medications, allergies, hx Reviewed: yes Date of last visit: 03/04/17 with Tahira Insurance: [employer] Medicare Home Location: [place] Psychological/Psychiatric Developments: Slow going. Medical and Neurological Developments: The neuropathy is pretty bad. Feet are awful. Pins an needles are back. Insomnia: no RLS: on lyrica, pins and needles away; but the gets stilll the toes having difficulty with burning sensation. Other: na SLEEP-WAKE SCHEDULE Bedtime: no set time, but been thinking about going to bed earlier. Will watch the news at 11 SLEEP LATENCY: quick Wake after Sleep Onset Only occ some wakes up earlier in the morning for brb. Wake time: 7 am through the week, with an alarm. On weekends, she oversleep Sleep Quality: good She most every day, sometime for house. Average total sleep time (in a 24 hour period): many hours. Obstructive Sleep Apnea Issues: Most Recent Apnea-Hypopnea Index: 22 PAP Pressure Setting(s) 06/08 with 3 L DME Company: [employer] Mask Type: FFM Mask Issues: Will often be off. Download Report: na Self-Reported Compliance: Having trouble Benefit: mckay ALLERGIES Allergen Reactions - Adhesive Tape (Adrienne* Intolerance Surgical tape leaves rash Irritates skin badly and blisters along with medical tape - Cats Other: See Comments Congested and itchy, difficulty breathing - Dogs Other: See Comments Congestion, sneezing, and difficulty breathing - Orphenadrine Unknown - Capsaicin Itching - Ciprofloxacin Other: See Comments Red, hot, itchy rash - Keflex [Cephalexin] Hives Negative skin testing and successful completion of an oral amoxicillin challenge was completed on 03/02/2018. Cephalexin shares an almost identical R1 side chain to amoxicillin; therefore, it is unlikely that she would be at elevated risk for developing an IgE-mediated reaction (allergic/anaphylactic). If she should need this medication in the future, I would recommend giving the first dose in a supervised medical setting. If no reaction after 30 minutes, proceed with regular dosing. - Niacin Unknown Pt states its niacin its niaspan - Reglan [Metoclopram* Other: See Comments Unable to sleep - Xanthines Unknown - Zofran [Ondansetron* Itching CURRENT MEDICATIONS: insulin glargine (LANTUS SOLOSTAR U-100 INSULIN) 100 unit/mL (3 mL) inpn Inject 54 units subcutaneously twice daily omeprazole (PRILOSEC) 20 mg capsule Take 1 capsule by mouth once daily. insulin glargine (LANTUS SOLOSTAR U-100 INSULIN) 100 unit/mL (3 mL) inpn Inject 56 Units subcutaneously twice daily. insulin lispro (HUMALOG KWIKPEN INSULIN) 200 unit/mL (3 mL) injection Inject subcutaneously 14 units with breakfast, 22 units with lunch, and 24 units with dinner metoprolol tartrate, short acting, (LOPRESSOR) 100 mg tablet TAKE 1 TABLET BY MOUTH TWICE A DAY DULoxetine (CYMBALTA) 60 mg capsule TAKE 1 CAPSULE BY MOUTH DAILY metFORMIN ER (GLUCOPHAGE XR) 500 mg 24 hr tablet TAKE 2 TABLETS BY MOUTH TWICE A DAY promethazine (PHENERGAN) 25 mg tablet Take 1 tablet by mouth every 6 hours as needed. aspirin, enteric coated (ASPIRIN, ENTERIC COATED) 81 mg EC tablet TAKE 1 TABLET BY MOUTH EVERY MORNING CLAUDIA-KYLE 8.6 mg tab TAKE 1 TABLET BY MOUTH TWICE A DAY STOOL SOFTENER 100 mg capsule TAKE 1 CAPSULE BY MOUTH DAILY Pseudoephedrine-guaiFENesin (MUCINEX D MAXIMUM STRENGTH) 120- 1,200 mg Tb12 Take 1 tablet by mouth twice daily. estradiol (ESTRACE) 0.01 % (0.1 mg/gram) vaginal cream Apply pea-sized amount to perineum and 1 applicator vaginally Mon, Wed, Fri for atrophic vaginitis. COMPOUNDED PRESCRIPTION Please fit for BiPAP mask. ONETOUCH ULTRA BLUE TEST STRIP test strip USE DIRECTED TO CHECK BLOOD SUGAR 4-5 TIMES DAILY ONETOUCH DELICA LANCETS 30 gauge misc USE TO CHECK BLOOD SUGAR 4-5 TIMES DALIY BIPAP Bilevel PAP 15/11 cmH2O with 2 LPM oxygen bleed in, mask, tubing, filters, heated humidity, lifetime supplies. Please fax 30 day compliance download to [phone]. Dx: G47.33, G47.39. DME: [facility] COMPOUNDED PRESCRIPTION OCD Titration for portable oxygen concentrator Oxygen Flow Rate between 2-6 liters. To keep oxygen saturation at or above 92%. mupirocin (BACTROBAN) 2 % ointment Apply 1 application to affected area three times daily. LYRICA 100 mg capsule TAKE 1 CAPSULE BY MOUTH THREE TIMES A DAY capsaicin (ZOSTRIX-HP) 0.075 % topical cream Apply 1 application to affected area four times daily. ULTICARE PEN NEEDLE 31 gauge x 516 ndle USE DIRECTED. TO INJECT INSULINS VITAMIN C 500 mg tablet TAKE 1 TABLET BY MOUTH DAILY Ferrous Gluconate (FERGON) 324 mg (38 mg iron) tablet TAKE 1 TABLET BY MOUTH DAILY WITH BREAKFAST isosorbide mononitrate ER (IMDUR) 60 mg 24 hr tablet Take 1.5 tablets by mouth once daily. In the morning atorvastatin (LIPITOR) 40 mg tablet TAKE 1 TABLET BY MOUTH DAILY diltiazem CD (CARDIZEM CD, CARTIA XT) 180 mg 24 hr capsule TAKE 1 CAPSULE BY MOUTH EVERY MORNING levothyroxine (SYNTHROID) 100 mcg tablet TAKE 1 TABLET BY MOUTH EVERY MORNING ELIQUIS 2.5 mg tab tab(s) TAKE 1 TABLET BY MOUTH TWICE A DAY nitroglycerin sublingual (NITROQUICK) 0.4 mg SL tablet DISSOLVE 1 TAB UNDER THE TONGUE NEEDED FOR CHEST PAIN EVERY 5 MINUTES UP TO 3 TIMES. IF NO RELIEF CALL 911. glucose 4 gram chewable tablet Take 4 tablets by mouth as needed for Low Blood Sugar. OXYGEN, HOME THERAPY, Inhale 3 L/min as instructed as directed. fluticasone (FLONASE) 50 mcg/actuation nasal spray Use 2 Sprays in each nostril once daily. furosemide (LASIX) 40 mg tablet Take 1 tablet by mouth twice daily. albuterol HFA (VENTOLIN HFA) 90 mcg/actuation inhaler Inhale 2 Puffs as instructed every 4 hours as needed for Wheezing/Shortness of Breath. COMPOUNDED PRESCRIPTION Evaluation for diabetic shoes and inserts Dx: E11.65, Z79.4 Incontinence Pad, Liner, Disp pads 1 Device as needed (urinary incontinence). Prevail incontinence pads. Dx: urinary incontinence. Size: small Blood Pressure Cuff - Home Use BLOOD PRESSURE CUFF FOR HOME USE. DX: LABILE BLOOD PRESSURE Blood-Glucose Meter (VersionOneTOUCH ULTRA2) monitoring kit UAD to test blood sugar Alcohol Swabs padm UAD to clean skin before testing blood sugar and injecting insulins. Vital signs: BP 100/69 (BP Site: Right Arm, BP Position: Sitting, BP Cuff Size: Large Adult) Pulse 66 Resp 16 MENTAL STATUS General appearance: in wellchair, wearing nasal canula, having cane present Grooming poor, but combed hear Orientation: Ox3 Memory: Grossly intact Kinetics: Slower, [id number] Eye Contact: some Demeanor plaintive Speech: Articulate, thick, Thought Stream plodding but logidal Thought Content about symptoms Mood: sometimes a bit champion Affect: Tired plaintive. Suicidal Ideation: denies Homocidal Ideation: No Psychosis no Insight fair Judgment fair ENT : na Abdomen: pannus Neuro: Gait and station in wheelchair, Strength grossly normal in all extremities. Coordination grossly intact. No tremors noted. Sleep Disorder Dx Impression: Obstructive sleep apnea - moderate to severe Other Conditioning Diagnoses: CHF DM2 CAD COPD PAF Morbid obesity Case Formulation / [place] (may include pt's hopes, fears, expectations, concerns): The new settings are indicated from [facility]; Time for a new DME locally Actions taken: Motivational Interviewing aspects taken Hearing ougt PDMP Aspect: na New order for bipap 06/09 with 2 liters. Plan: See how doing on new arrangement Follow up with YRIS Ba in 6 weeks. . Shan Middleton MD CNOV Observed: 05/01/2018 Status: COMPLETED Source: RUSSELL 11:30 AM [facility] REPOSITORY Office Visit (PULMWS) TAMIA PANDA ([id number]) 1955 F Date Time Provider Department 05/01/18 11:30 AM LIZETTE ACOSTA During your visit today, we recorded the following information about you: Pulse Respiration Blood pressure Weight 69/minute 12/minute 120/86 95.8 kg Lizette Acosta PA-C 05/04/2018 10:36 AM Signed [facility] [place], 05/01/18: INTERVAL HISTORY: Tamia Panda is a 62 year old female who presents here today secondary to shortness of breath. PMH: PARSEH, noncompliant, PE, Hypothyroidism, Hyperlipidemia, GERD, HTN, DM, CAD. Former smoker, quit 2005. 28 pack years. Since the last office visit on 03/20/18 patient was admitted to [facility] on 04/04/18 secondary to altered mental status. Blood sugar was 50. Brain CT revealed chronic involutional changes, no CT evidence of acute intracranial hemorrhage. CXR showed cardiomegaly and mild pulmonary congestion. CTA showed no evidence of PE, aortic aneurysm or aortic dissection. Patient altered mental status attributed to hypoglycemia as well as hypercapnia. Today, patient states she feels much better. No confusion. Minimal cough. No sputum. No hemoptysis. No pleuritic chest pain. No wheezing. Patient states she tries to leave her supplemental oxygen off for as long as she is able to tolerate it. She then becomes short of breath and puts 3 L on. Consistently wearing 3 lpm at night. DME: [facility]. Has not been able to get BiPAP equipment. Allergies reviewed and updated, and medications reconciled today. Immunization History Administered Date(s) Administered Influenza Seasonal Inj Age 3+ 07/04/2014 07/16/2015 Influenza Seasonal Inj Quadrivalent Age 3+ 06/19/2017 Pneumococcal Vac Conjugate(#7 thru DECEMBER 2009 then #13 thereafter) 01/06/2008 Pneumococcal-13 Vac Conjugate 02/27/2015 Pneumovax 06/22/2010 Tdap (Age 7+) 10/02/2016 Zostavax 01/14/2017 PMH:Reviewed with patient today. No changes. FAMH: Reviewed with patient today. No changes. SOCH: No changes. ROS: General: Generally feels good. Appetite good. Weight stable. Eyes, Ears, nose, throat: No post nasal drip, rhinorrhea, purulent nasal discharge, epistaxis. No hoarseness. Vision stable. Cardiac: No angina, edema, orthopnea. GI: No heartburn, dysphagia, diarrhea. Uro/LOG CUT OFF SAWYER: No dysuria, hesitancy, nocturia. Musculoskeletal: No pain. Neuro: No headache, focal weakness, tremor. Skin: No rash. Otherwise negative. PHYSICAL EXAMINATION: BP 120/86 Pulse 69 Resp 12 Wt 211 lb 3.2 oz (95.8kg) SpO2 98% O2: 3 L. Gen: No acute distress. Cooperative with examination. ENT: Sclerae clear. Nares clear. Oral hygeine/dentition fair. Pharynx clear. No halitosis. Resp: No stridor, accessory respiratory muscle use, supra- sternal or intercostal retractions. No crackles, wheezes, rubs. CV: Regular rythm. Heart tones normal. Radial pulses normal. Abd: Non distended. MSK: No kyphoscoliosis, joint deformities. Ext: Warm and well perfused. No clubbing, cyanosis, edema. No sclerodactyly. No Raynaud's. Skin: Color normal. Texture normal. No rash, eczema, urticaria, petechiae, telangiectasia, ecchymoses. Lymph: No adenopathy in neck, supra-clavicular fossae. Endo: No goiter, exophthalmos, onycholysis. Neuro: Mental status normal. Affect normal. Muscle tone normal. No tremor. DATA REVIEW: CXR, 04/04/18 [facility] read only. Impression: Cardiomegaly and mild pulmonary congestion. CTA, 04/04/18 [facility] read only. Impression: There is no evidence of pulmonary embolism, aortic aneurysm, or aortic dissection. There are mild chronic changes in both lungs, right greater than left. There is no focal consolidation. There is no pleural effusion. Prominent lymph nodes in the mediastinum are likely reactive. The lymph nodes have decreased in size compared to prior CT. There is a 1.1 cm opacity in the periphery of the right lower lobe. A follow-up CT of the chest is recommended in three months. IMPRESSION AND RECOMMENDATIONS: 1. Hypercapnia. -It is imperative that you wear your BiPAP nightly as directed. Patient has been unable to receive BiPAP. -Patient reports that she had a titration done recently at [facility]. Will obtain those records. -Patient has appointment scheduled with Dr. Middleton on FridayMay 06. ? 2. PARESH. -See #1. ? 3. Hypoxia. -It is imperative that you wear your supplemental oxygen continuously. Based on last oximetry, you require 2 lpm. 4. Lung Nodule. -Reviewed CTA from February 08, 2018 done at [facility] which revealed a 1.1 cm opacity in the periphery of right lower lobe. I was unable to find any other images in our system for comparison. -CT chest ordered for 3 month follow up. Patient would prefer to have this done at [facility]. -->If no progression, will repeat CT chest in 3 months. --> If progression, will order a PET scan +/- bronchoscopy with biopsy. I addressed the questions of the patient, and she expressed understanding and acceptance of my answers. Lizette Acosta PA-C [facility] [place] [facility] [address] [place] [phone] Lizette Acosta PA-C 05/01/2018 12:02 PM Signed 1. Hypercapnia. -It is imperative that you wear your BiPAP nightly as directed. Patient has been unable to receive BiPAP. -Patient reports that she had a titration done recently at [facility]. Will obtain those records. -Patient has appointment scheduled with Dr. Middleton on FridayMay 06. ? 2. PARESH. -See #1. ? 3. Hypoxia. -It is imperative that you wear your supplemental oxygen continuously. Based on last oximetry, you require 2 lpm. 4. Lung Nodule. -Reviewed CTA from February 08, 2018 done at [facility] which revealed a 1.1 cm opacity in the periphery of right lower lobe. I was unable to find any other images in our system for comparison. -CT chest ordered for 3 month follow up. Patient would prefer to have this done at [facility]. -->If no progression, will repeat CT chest in 3 months. --> If progression, will order a PET scan +/- bronchoscopy with biopsy. Referring Provider: LIZETTE ACOSTA [[id number]] Allergies As of Date: 05/01/2018 Noted Allergy Reaction ADHESIVE TAPE (ROSINS) 04/04/2015 5 - Intolerance Comments: Surgical tape leaves rash Irritates skin badly and blisters along with medical tape CATS 04/10/2016 14 - Other: See Comments Comments: Congested and itchy, difficulty breathing DOGS 04/10/2016 14 - Other: See Comments Comments: Congestion, sneezing, and difficulty breathing ORPHENADRINE 04/10/2016 16 - Unknown CAPSAICIN 03/02/2018 9 - Itching CIPROFLOXACIN 12/11/2011 14 - Other: See Comments Comments: Red, hot, itchy rash KEFLEX (CEPHALEXIN) 07/10/2016 4 - Hives Comments: Negative skin testing and successful completion of an oral amoxicillin challenge was completed on 03/02/2018. Cephalexin shares an almost identical R1 side chain to amoxicillin; therefore, it is unlikely that she would be at elevated risk for developing an IgE-mediated reaction (allergic/anaphylactic). If she should need this medication in the future, I would recommend giving the first dose in a supervised medical setting. If no reaction after 30 minutes, proceed with regular dosing. NIACIN 04/04/2015 16 - Unknown Comments: Pt states its niacin its niaspan REGLAN (METOCLOPRAMIDE HCL) 03/04/2017 14 - Other: See Comments Comments: Unable to sleep XANTHINES 10/18/2004 16 - Unknown ZOFRAN (ONDANSETRON HCL (PF)) 02/03/2018 9 - Itching Date Reviewed: 05/01/2018 Reviewed by: Lizette Acosta - Fully Assessed Reason for Visit: Follow Up [171] Primary Visit Diagnosis:Hypercapnia [R06.89] Other Visit Diagnoses:Lung nodules [R91.8] Acute and chronic respiratory failure with hypoxia (HCC) [J96.21] PARESH (obstructive sleep apnea) [G47.33] Order(s):CT CHEST WO IVCON [[id number]] Order #: [id number] FUTURE Prescriptions as of 05/01/2018 Sig: INSULIN GLARGINE (U-100) 100 * Inject 54 units subcutaneousl* OMEPRAZOLE 20 MG CAPSULE,MARIA EUGENIA* Take 1 capsule by mouth once * INSULIN GLARGINE (U-100) 100 * Inject 56 Units subcutaneousl* INSULIN LISPRO (U-200) 200 UN* Inject subcutaneously 14 unit* METOPROLOL TARTRATE 100 MG TA* TAKE 1 TABLET BY MOUTH TWICE * DULOXETINE 60 MG CAPSULE,MARIA EUGENIA* TAKE 1 CAPSULE BY MOUTH DAILY METFORMIN ER 500 MG TABLET,EX* TAKE 2 TABLETS BY MOUTH TWICE* PROMETHAZINE 25 MG TABLET Take 1 tablet by mouth every * ASPIRIN 81 MG TABLET,DELAYED * TAKE 1 TABLET BY MOUTH EVERY * CLAUDIA-KYLE 8.6 MG TABLET TAKE 1 TABLET BY MOUTH TWICE * STOOL SOFTENER 100 MG CAPSULE TAKE 1 CAPSULE BY MOUTH DAILY PSEUDOEPHEDRINE-GUAIFENESIN E* Take 1 tablet by mouth twice * ESTRADIOL 0.01% (0.1 MG/GRAM)* Apply pea-sized amount to per* COMPOUNDED PRESCRIPTION Please fit for BiPAP mask. ONETOUCH ULTRA BLUE TEST STRIP USE DIRECTED TO CHECK BLOO* ONETOUCH DELICA LANCETS 30 GA* USE TO CHECK BLOOD SUGAR 4-5 * BIPAP Bilevel PAP 15/11 cmH2O with * COMPOUNDED PRESCRIPTION OCD Titration for portable ox* MUPIROCIN 2 % TOPICAL OINTMENT Apply 1 application to affect* LYRICA 100 MG CAPSULE TAKE 1 CAPSULE BY MOUTH THREE* CAPSAICIN 0.075 % TOPICAL CRE* Apply 1 application to affect* ULTICARE PEN NEEDLE 31 GAUGE * USE DIRECTED. TO INJECT IN* VITAMIN C 500 MG TABLET TAKE 1 TABLET BY MOUTH DAILY FERROUS GLUCONATE 324 MG (38 * TAKE 1 TABLET BY MOUTH DAILY * ISOSORBIDE MONONITRATE ER 60 * Take 1.5 tablets by mouth onc* ATORVASTATIN 40 MG TABLET TAKE 1 TABLET BY MOUTH DAILY DILTIAZEM SR 180 MG 24 HR CAP TAKE 1 CAPSULE BY MOUTH EVERY* LEVOTHYROXINE 100 MCG TABLET TAKE 1 TABLET BY MOUTH EVERY * ELIQUIS 2.5 MG TABLET TAKE 1 TABLET BY MOUTH TWICE * NITROGLYCERIN 0.4 MG SUBLINGU* DISSOLVE 1 TAB UNDER THE TONG* GLUCOSE 4 GRAM CHEWABLE TABLET Take 4 tablets by mouth as ne* OXYGEN (HOME THERAPY) Inhale 3 L/min as instructed * FLUTICASONE 50 MCG/ACTUATION * Use 2 Sprays in each nostril * FUROSEMIDE 40 MG TABLET Take 1 tablet by mouth twice * ALBUTEROL SULFATE HFA 90 MCG/* Inhale 2 Puffs as instructed * COMPOUNDED PRESCRIPTION Evaluation for diabetic shoes* INCONTINENCE PAD, LINER, DISP* 1 Device as needed (urinary i* COMPOUNDED PRESCRIPTION BLOOD PRESSURE CUFF FOR HOME * BLOOD-GLUCOSE METER KIT UAD to test blood sugar ALCOHOL SWABS UAD to clean skin before test* Problem List As Of Date 05/01/2018 Noted Resolved SUBJECTIVE TINNITUS [H93.19] INVALID FOR* PARESH treated with BiPAP [G47.33] INVALID FOR* Hyperlipidemia [E78.5] INVALID FOR* Coronary disease [I25.10] INVALID FOR* Diabetes mellitus, type II (HCC) [E11.9] INVALID FOR* Morbid obesity (HCC) [E66.01] Hypothyroidism [E03.9] Anxiety [F41.9] Sleep apnea [G47.30] 02/14/2017 Essential hypertension [I10] Coronary artery disease of [place] artery of [place]* AF (paroxysmal atrial fibrillation) ([facility]) [I48.* COPD (chronic obstructive pulmonary disease) (H* GERD without esophagitis [K21.9] Dysphagia [R13.10] Constipation [K59.00] DM type 2 (diabetes mellitus, type 2) ([facility]) [E1* 02/14/2017 Shortness of breath [R06.02] 02/14/2017 Arthritis [M19.90] More... CHF (congestive heart failure) ([facility]) [I50.9] BPPV (benign paroxysmal positional vertigo) [H8*INVALID FOR* RLS (restless legs syndrome) [G25.81] INVALID FOR* Iron deficiency concern: RE RLS [E61.1] INVALID FOR* Tubular adenoma [D36.9] INVALID FOR* Incontinence [R32] More... Gastroparesis [K31.84] INVALID FOR* Pre-op testing [Z01.818] INVALID FOR* More... Hypercapnia [R06.89] INVALID FOR* S/P coronary artery stent placement [Z95.5] INVALID FOR* Stage 3 chronic kidney disease [N18.3] INVALID FOR* Depression [F32.9] INVALID FOR* Obesity, Class II, BMI 35-39.9 [E66.9] INVALID FOR* Other instructions from your clinician: 1. Hypercapnia. -It is imperative that you wear your BiPAP nightly as directed. Patient has been unable to receive BiPAP. -Patient reports that she had a titration done recently at [facility]. Will obtain those records. -Patient has appointment scheduled with Dr. Middleton on FridayMay 06. ? 2. PARESH. -See #1. ? 3. Hypoxia. -It is imperative that you wear your supplemental oxygen continuously. Based on last oximetry, you require 2 lpm. 4. Lung Nodule. -Reviewed CTA from February 08, 2018 done at [facility] which revealed a 1.1 cm opacity in the periphery of right lower lobe. I was unable to find any other images in our system for comparison. -CT chest ordered for 3 month follow up. Patient would prefer to have this done at [facility]. -->If no progression, will repeat CT chest in 3 months. --> If progression, will order a PET scan +/- bronchoscopy with biopsy. Disposition: Return in about 3 months (around 08/01/2018). Follow-up and Disposition History Recorded Encounter Status:Closed by LIZETTE ACOSTA on 05/04/18 PROGRESS Observed: 05/01/2018 Status: COMPLETED Source: RUSSELL 11:26 AM [facility] [place] REPOSITORY HNO ID: [id number] Author: Lizette Acosta Service: (none) Author Type: Physician Plant Controls Specialist Type: Progress Notes Filed: 05/04/2018 10:36 AM Note Text: [facility] [place], 05/01/18: INTERVAL HISTORY: Tamia Panda is a 62 year old female who presents here today secondary to shortness of breath. PMH: PARESH, noncompliant, PE, Hypothyroidism, Hyperlipidemia, GERD, HTN, DM, CAD. Former smoker, quit 2005. 28 pack years. Since the last office visit on 03/20/18 patient was admitted to [facility] on 04/04/18 secondary to altered mental status. Blood sugar was 50. Brain CT revealed chronic involutional changes, no CT evidence of acute intracranial hemorrhage. CXR showed cardiomegaly and mild pulmonary congestion. CTA showed no evidence of PE, aortic aneurysm or aortic dissection. Patient altered mental status attributed to hypoglycemia as well as hypercapnia. Today, patient states she feels much better. No confusion. Minimal cough. No sputum. No hemoptysis. No pleuritic chest pain. No wheezing. Patient states she tries to leave her supplemental oxygen off for as long as she is able to tolerate it. She then becomes short of breath and puts 3 L on. Consistently wearing 3 lpm at night. DME: [facility]. Has not been able to get BiPAP equipment. Allergies reviewed and updated, and medications reconciled today. Immunization History Administered Date(s) Administered Influenza Seasonal Inj Age 3+ 07/04/2014 07/16/2015 Influenza Seasonal Inj Quadrivalent Age 3+ 06/19/2017 Pneumococcal Vac Conjugate(#7 thru DECEMBER 2009 then #13 thereafter) 01/06/2008 Pneumococcal-13 Vac Conjugate 02/27/2015 Pneumovax 06/22/2010 Tdap (Age 7+) 10/02/2016 Zostavax 01/14/2017 PMH:Reviewed with patient today. No changes. FAMH: Reviewed with patient today. No changes. SOCH: No changes. ROS: General: Generally feels good. Appetite good. Weight stable. Eyes, Ears, nose, throat: No post nasal drip, rhinorrhea, purulent nasal discharge, epistaxis. No hoarseness. Vision stable. Cardiac: No angina, edema, orthopnea. GI: No heartburn, dysphagia, diarrhea. Uro/LOG CUT OFF SAWYER: No dysuria, hesitancy, nocturia. Musculoskeletal: No pain. Neuro: No headache, focal weakness, tremor. Skin: No rash. Otherwise negative. PHYSICAL EXAMINATION: BP 120/86 Pulse 69 Resp 12 Wt 211 lb 3.2 oz (95.8kg) SpO2 98% O2: 3 L. Gen: No acute distress. Cooperative with examination. ENT: Sclerae clear. Nares clear. Oral hygeine/dentition fair. Pharynx clear. No halitosis. Resp: No stridor, accessory respiratory muscle use, supra- sternal or intercostal retractions. No crackles, wheezes, rubs. CV: Regular rythm. Heart tones normal. Radial pulses normal. Abd: Non distended. MSK: No kyphoscoliosis, joint deformities. Ext: Warm and well perfused. No clubbing, cyanosis, edema. No sclerodactyly. No Raynaud's. Skin: Color normal. Texture normal. No rash, eczema, urticaria, petechiae, telangiectasia, ecchymoses. Lymph: No adenopathy in neck, supra-clavicular fossae. Endo: No goiter, exophthalmos, onycholysis. Neuro: Mental status normal. Affect normal. Muscle tone normal. No tremor. DATA REVIEW: CXR, 04/04/18 [facility] read only. Impression: Cardiomegaly and mild pulmonary congestion. CTA, 04/04/18 [facility] read only. Impression: There is no evidence of pulmonary embolism, aortic aneurysm, or aortic dissection. There are mild chronic changes in both lungs, right greater than left. There is no focal consolidation. There is no pleural effusion. Prominent lymph nodes in the mediastinum are likely reactive. The lymph nodes have decreased in size compared to prior CT. There is a 1.1 cm opacity in the periphery of the right lower lobe. A follow-up CT of the chest is recommended in three months. IMPRESSION AND RECOMMENDATIONS: 1. Hypercapnia. -It is imperative that you wear your BiPAP nightly as directed. Patient has been unable to receive BiPAP. -Patient reports that she had a titration done recently at [facility]. Will obtain those records. -Patient has appointment scheduled with Dr. Middleton on FridayMay 06. ? 2. PARESH. -See #1. ? 3. Hypoxia. -It is imperative that you wear your supplemental oxygen continuously. Based on last oximetry, you require 2 lpm. 4. Lung Nodule. -Reviewed CTA from February 08, 2018 done at [facility] which revealed a 1.1 cm opacity in the periphery of right lower lobe. I was unable to find any other images in our system for comparison. -CT chest ordered for 3 month follow up. Patient would prefer to have this done at [facility]. -->If no progression, will repeat CT chest in 3 months. --> If progression, will order a PET scan +/- bronchoscopy with biopsy. I addressed the questions of the patient, and she expressed understanding and acceptance of my answers. Lizette Acosta PA-C [facility] [place] [facility] [address] [phone] PROGRESS Observed: 04/23/2018 Status: COMPLETED Source: RUSSELL 8:09 AM [facility] REPOSITORY HNO ID: [id number] Author: Saad Allen) Larry Service: (none) Author Type: Registered Nurse Type: Progress Notes Filed: 04/23/2018 8:11 AM Note Text: TC to AROLDO Lopez, left message re: following up with [facility] regarding moving to new apartment Saad Silvestre RN April 23, 2018 8:10 AM PROGRESS Observed: 04/22/2018 Status: COMPLETED Source: RUSSELL 12:07 PM [facility] REPOSITORY HNO ID: [id number] Author: Nanda Rodriguez) Brian Service: (none) Author Type: Physician Type: Progress Notes Filed: 04/22/2018 12:08 PM Note Text: BS in good range aside from when diet uncontrolled. Continue current regimen. Follow up with June regarding housing. PROGRESS Observed: 04/22/2018 Status: COMPLETED Source: RUSSELL 11:21 AM [facility] REPOSITORY O ID: [id number] Author: Saad Allen) Larry Service: (none) Author Type: Registered Nurse Type: Progress Notes Filed: 04/22/2018 11:33 AM Note Text: PRIMARY CARE COORDINATION FOLLOW-UP NOTE Provider Action/FYI Please note BS below. Patient was eating Cake rolls when she had elevated BS. Discussed watching diet more closely, verbalized understanding Pt is very upset because her lease isn't being renewed and she has to move by 05/22. TC to JOSEFINA Watkins at [facility], informed pt doesn't know how to proceed. June will call patient Patient identified by name and date of . YES Spoke to patient and JOSEFINA Watkins at [facility] Summary: Tamiakarson Panda is a 63 year old female who reports glucose readings as noted. DATE 04/22 04/21 04/20 04/19 04/18 04/17 04/16 Fasting 149 223 154 155 179 154 144 Afternoon 252 93 111 150 169 96 Bedtime 117 245 133 Any low blood sugars during this period of reporting No Patient's diabetes medications as follows: insulin lispro (HUMALOG KWIKPEN) 200 unit/mL Inject subcutaneously 14 units with breakfast, 22 units with lunch, and 24 units with dinner insulin glargine (LANTUS SOLOSTAR U-100) 100 unit/mL Inject 54 units subcutaneously twice daily metFORMIN ER (GLUCOPHAGE XR) 500 mg TAKE 2 TABLETS BY MOUTH TWICE A DAY Cleaning Supervisor plan for next outreach: Will follow up one month Signature Saad Silvestre RN April 22, 2018 CNPTOUTREACH Observed: 04/22/2018 Status: COMPLETED Source: RUSSELL 12:00 AM [facility] REPOSITORY Patient Outreach (FAMPWS) TAMIA PANDA ([id number]) 1955 F Date Time Provider Department 04/22/18 SAAD SILVESTRE (RN) CRYSTALPWS During your visit today, we recorded the following information about you: Saad Silvestre RN 04/22/2018 11:33 AM Signed PRIMARY CARE COORDINATION FOLLOW-UP NOTE Provider Action/FYI Please note BS below. Patient was eating Cake rolls when she had elevated BS. Discussed watching diet more closely, verbalized understanding Pt is very upset because her lease isn't being renewed and she has to move by 05/22. TC to JOSEFINA Watkins at [facility], informed pt doesn't know how to proceed. June will call patient Patient identified by name and date of . YES Spoke to patient and JOSEFINA Watkins at [facility] Summary: Tamia Panda is a 63 year old female who reports glucose readings as noted. DATE 04/22 04/21 04/20 04/19 04/18 04/17 04/16 Fasting 149 223 154 155 179 154 144 Afternoon 252 93 111 150 169 96 Bedtime 117 245 133 Any low blood sugars during this period of reporting No Patient's diabetes medications as follows: insulin lispro (HUMALOG KWIKPEN) 200 unit/mL Inject subcutaneously 14 units with breakfast, 22 units with lunch, and 24 units with dinner insulin glargine (LANTUS SOLOSTAR U-100) 100 unit/mL Inject 54 units subcutaneously twice daily metFORMIN ER (GLUCOPHAGE XR) 500 mg TAKE 2 TABLETS BY MOUTH TWICE A DAY Cleaning Supervisor plan for next outreach: Will follow up one month Signature Saad Silvestre RN April 22, 2018 Nanda Oliveira MD 04/22/2018 12:08 PM Signed BS in good range aside from when diet uncontrolled. Continue current regimen. Follow up with June regarding housing. Saad Silvestre RN 04/23/2018 8:11 AM Signed TC to AROLDO Lopez, left message re: following up with [facility] regarding moving to new apartment Saad Silvestre RN April 23, 2018 8:10 AM Allergies As of Date: 04/22/2018 Noted Allergy Reaction ADHESIVE TAPE (ROSINS) 04/04/2015 5 - Intolerance Comments: Surgical tape leaves rash Irritates skin badly and blisters along with medical tape CATS 04/10/2016 14 - Other: See Comments Comments: Congested and itchy, difficulty breathing DOGS 04/10/2016 14 - Other: See Comments Comments: Congestion, sneezing, and difficulty breathing ORPHENADRINE 04/10/2016 16 - Unknown CAPSAICIN 03/02/2018 9 - Itching CIPROFLOXACIN 12/11/2011 14 - Other: See Comments Comments: Red, hot, itchy rash KEFLEX (CEPHALEXIN) 07/10/2016 4 - Hives Comments: Negative skin testing and successful completion of an oral amoxicillin challenge was completed on 03/02/2018. Cephalexin shares an almost identical R1 side chain to amoxicillin; therefore, it is unlikely that she would be at elevated risk for developing an IgE-mediated reaction (allergic/anaphylactic). If she should need this medication in the future, I would recommend giving the first dose in a supervised medical setting. If no reaction after 30 minutes, proceed with regular dosing. NIACIN 04/04/2015 16 - Unknown Comments: Pt states its niacin its niaspan REGLAN (METOCLOPRAMIDE HCL) 03/04/2017 14 - Other: See Comments Comments: Unable to sleep XANTHINES 10/18/2004 16 - Unknown ZOFRAN (ONDANSETRON HCL (PF)) 02/03/2018 9 - Itching Date Reviewed: 04/13/2018 Reviewed by: Yessi Sanchez LPN - Fully Assessed Reason for Visit: Glove Cuffer Chronic [facility] [6768] Prescriptions as of 04/22/2018 Sig: INSULIN GLARGINE (U-100) 100 * Inject 54 units subcutaneousl* OMEPRAZOLE 20 MG CAPSULE,MARIA EUGENIA* Take 1 capsule by mouth once * INSULIN GLARGINE (U-100) 100 * Inject 56 Units subcutaneousl* INSULIN LISPRO (U-200) 200 UN* Inject subcutaneously 14 unit* METOPROLOL TARTRATE 100 MG TA* TAKE 1 TABLET BY MOUTH TWICE * DULOXETINE 60 MG CAPSULE,MARIA EUGENIA* TAKE 1 CAPSULE BY MOUTH DAILY METFORMIN ER 500 MG TABLET,EX* TAKE 2 TABLETS BY MOUTH TWICE* PROMETHAZINE 25 MG TABLET Take 1 tablet by mouth every * ASPIRIN 81 MG TABLET,DELAYED * TAKE 1 TABLET BY MOUTH EVERY * CLAUDIA-KYLE 8.6 MG TABLET TAKE 1 TABLET BY MOUTH TWICE * STOOL SOFTENER 100 MG CAPSULE TAKE 1 CAPSULE BY MOUTH DAILY PSEUDOEPHEDRINE-GUAIFENESIN E* Take 1 tablet by mouth twice * ESTRADIOL 0.01% (0.1 MG/GRAM)* Apply pea-sized amount to per* COMPOUNDED PRESCRIPTION Please fit for BiPAP mask. ONETOUCH ULTRA BLUE TEST STRIP USE DIRECTED TO CHECK BLOO* ONETOUCH DELICA LANCETS 30 GA* USE TO CHECK BLOOD SUGAR 4-5 * BIPAP Bilevel PAP 15/11 cmH2O with * COMPOUNDED PRESCRIPTION OCD Titration for portable ox* MUPIROCIN 2 % TOPICAL OINTMENT Apply 1 application to affect* LYRICA 100 MG CAPSULE TAKE 1 CAPSULE BY MOUTH THREE* CAPSAICIN 0.075 % TOPICAL CRE* Apply 1 application to affect* ULTICARE PEN NEEDLE 31 GAUGE * USE DIRECTED. TO INJECT IN* VITAMIN C 500 MG TABLET TAKE 1 TABLET BY MOUTH DAILY FERROUS GLUCONATE 324 MG (38 * TAKE 1 TABLET BY MOUTH DAILY * ISOSORBIDE MONONITRATE ER 60 * Take 1.5 tablets by mouth onc* ATORVASTATIN 40 MG TABLET TAKE 1 TABLET BY MOUTH DAILY DILTIAZEM SR 180 MG 24 HR CAP TAKE 1 CAPSULE BY MOUTH EVERY* LEVOTHYROXINE 100 MCG TABLET TAKE 1 TABLET BY MOUTH EVERY * ELIQUIS 2.5 MG TABLET TAKE 1 TABLET BY MOUTH TWICE * NITROGLYCERIN 0.4 MG SUBLINGU* DISSOLVE 1 TAB UNDER THE TONG* GLUCOSE 4 GRAM CHEWABLE TABLET Take 4 tablets by mouth as ne* OXYGEN (HOME THERAPY) Inhale 3 L/min as instructed * FLUTICASONE 50 MCG/ACTUATION * Use 2 Sprays in each nostril * FUROSEMIDE 40 MG TABLET Take 1 tablet by mouth twice * ALBUTEROL SULFATE HFA 90 MCG/* Inhale 2 Puffs as instructed * COMPOUNDED PRESCRIPTION Evaluation for diabetic shoes* INCONTINENCE PAD, LINER, DISP* 1 Device as needed (urinary i* COMPOUNDED PRESCRIPTION BLOOD PRESSURE CUFF FOR HOME * BLOOD-GLUCOSE METER KIT UAD to test blood sugar ALCOHOL SWABS UAD to clean skin before test* Problem List As Of Date 04/22/2018 Noted Resolved SUBJECTIVE TINNITUS [H93.19] INVALID FOR* PARESH treated with BiPAP [G47.33] INVALID FOR* Hyperlipidemia [E78.5] INVALID FOR* Coronary disease [I25.10] INVALID FOR* Diabetes mellitus, type II (HCC) [E11.9] INVALID FOR* Morbid obesity (HCC) [E66.01] Hypothyroidism [E03.9] Anxiety [F41.9] Sleep apnea [G47.30] 02/14/2017 Essential hypertension [I10] Coronary artery disease of port lions artery of stoney* AF (paroxysmal atrial fibrillation) ([facility]) [I48.* COPD (chronic obstructive pulmonary disease) (H* GERD without esophagitis [K21.9] Dysphagia [R13.10] Constipation [K59.00] DM type 2 (diabetes mellitus, type 2) ([facility]) [E1* 02/14/2017 Shortness of breath [R06.02] 02/14/2017 Arthritis [M19.90] More... CHF (congestive heart failure) ([facility]) [I50.9] BPPV (benign paroxysmal positional vertigo) [H8*INVALID FOR* RLS (restless legs syndrome) [G25.81] INVALID FOR* Iron deficiency concern: RE RLS [E61.1] INVALID FOR* Tubular adenoma [D36.9] INVALID FOR* Incontinence [R32] More... Gastroparesis [K31.84] INVALID FOR* Pre-op testing [Z01.818] INVALID FOR* More... Hypercapnia [R06.89] INVALID FOR* S/P coronary artery stent placement [Z95.5] INVALID FOR* Stage 3 chronic kidney disease [N18.3] INVALID FOR* Depression [F32.9] INVALID FOR* Obesity, Class II, BMI 35-39.9 [E66.9] INVALID FOR* Disposition: Return in about 4 weeks (around 05/20/2018). Follow-up and Disposition History Recorded Encounter Status:Closed by SAAD SILVESTRE on 04/24/18 PROGRESS Observed: 04/13/2018 Status: COMPLETED Source: RUSSELL 4:39 PM [facility] REPOSITORY O ID: [id number] Author: Saad (Rn) Larry Service: (none) Author Type: Registered Nurse Type: Progress Notes Filed: 04/13/2018 4:54 PM Note Text: PRIMARY CARE COORDINATION IN OFFICE VISIT WITH PCP Patient has been identified by name and date of . PCP Assessment/Plan: Reviewed PCP plan with patient using Teach Back Discussed wearing oxygen at all times. Pt was in a hurry and forgot her portable oxygen. Discussed ideas for remembering to take oxygen to appts, etc. Discussed BiPAP. Has sleep study tonight and discussed, once re-approved pt needs to wear it every night to prevent further hospitalizations and dangerous events. Discussed hypoglycemia, decreasing insulin and eating lunch in a timely manner since most of pt's lows occur late morning/early afternoon PCC Plan of Care: PCC Interventions: TC to [place] at [facility], informed patient is having a repeat sleep study tonight to have BiPAP re-initiated in pt's home. Pt has had numerous hospitalizations for respiratory failure. Asked to have notation placed in patient's chart when she is to have BiPAP set up that respiratory therapist goes to the pt's home. Pt has difficulty understanding instructions at times and had to be reinforced multiple times how to fill her portable oxygen tanks correctly. PCP is requesting home set up with therapist. States she will make a notation and discuss with quarry supervisor. Informed if the decision is made that set up cannot occur in home please call PCC, verbalized understanding and agreement. TC to [facility] Health, asked if pt is still receiving PT? States no, PT discharged pt on 03/18 Next Office Visit: Visit date not found Plan For Next Call: one week Saad Silvestre RN April 13, 2018 PROGRESS Observed: 04/13/2018 Status: COMPLETED Source: RUSSELL 4:17 PM [facility] REPOSITORY O ID: [id number] Author: Katie (Lm) Podlogar Service: (none) Author Type: Nurse Practitioner Type: Progress Notes Filed: 04/13/2018 4:53 PM Note Text: 04/13/2018 Patient presents with: Hospital F/U HPI: Tamia Panda is a 63 year old female who presents here today for Hospital Discharge follow-up. Admitted to [facility] from 04/04-04/07 for complaint of difficulty to arouse. TCM note prepared by PCC saad Silvestre as follows: TRANSITION CARE MANAGEMENT (TCM) INITIAL CONTACT ? Provider Action/FYI: ? FBS 173 One episode of SOB yesterday, didn't use rescue inhaler, none since Discussed f/u for lung mass with PCP, will repeat chest CT in 2 months ? ? Initial contact with patient post discharge, spoke to patient. Patient identified by name and . ? SUMMARY: -Pt discharged from [facility] on 04/07. -Follow up appointment on 04/13 with ARTURO Wilson. -Medication review done partially with patient and with [facility]. -Admitted for: Acute metabolic encephalopathy attributed to a combination of hypoglycemia as well as hypercapnia Diabetes mellitus type 2 with hypoglycemic episodes Acute hypercapnic respiratory failure secondary to PARESH, obesity hypoventilation syndrome, COPD ? CONCERNS: FBS this AM 173 ? Reports short episode of SOB yesterday, none today Instructed to use Albuterol rescue inhaler for any SOB, verbalized agreement ? NEW MEDICATIONS: None ? MEDS HELD/DISCONTINUED: None ? BRIEF HOSPITAL COURSE: Patient is a 63-year-old lady with multiple comorbidities admitted with changes in her level of sensorium ? Acute metabolic encephalopathy attributed to a combination of hypoglycemia as well as hypercapnia ? 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 Patient was admitted to monitored bed with adjustment of her insulin regimen ? Acute hypercapnic respiratory failure secondary to combination of obstructive sleep apnea, obesity hypoventilation syndrome as well as COPD patient apparently noncompliant with her BiPAP at home. He will discussion with patient and family regarding possibility of patient being transferred to a intermediate facility patient declined. ? Morbid obesity with BMI of 40.1 lifestyle modification including weight loss advised ? Lung mass patient is scheduled for follow-up with PCP for evaluation; patient apparently has an appointment on today 04/06/2018 with patient being in the hospital she was advised to reschedule this appointment ? Obstructive sleep apnea; patient educated on the need to be compliant with her BiPAP at night ? Saad Silvestre RN Since discharge patient has been felling well. Two incidents of low blood sugar one with sugar at 58 the other of 70. The one low was before lunch time. She is unsure of when the second occurred. She reports she has been wearing her oxygen 3L/NC during the night and day, however she does not have it on at this time. She reports she was sleeping when her ride came to pick her up today and she had to leave quickly and was unable to change to her portable bottle. She does have imprints on her face were it appears she had been wearing her oxygen. She is 96% on room air on arrival today. She is having a sleep study tonight so she can get a new BIPAP?CPAP machine. She had previously been on BIPAP at 15 with 2L oxygen at night, however she was non complaint with usage and it was removed from home. Denies fever, chills, SOB, wheezing, dyspnea, chest pain, lef swelling, nausea, vomiting, or constipation. ? PAST MEDICAL HISTORY Diagnosis Date - Acute chronic obstructive pulmonary disease with respiratory failure (HCC) - AF (paroxysmal atrial fibrillation) ([facility]) - Anxiety - Arthritis Seeing Dr Elliott - Cervical cancer ([facility]) hysterectomy - CHF (congestive heart failure) ([facility]) - Chronic back pain Seeing Dr. Wallace - Constipation - COPD (chronic obstructive pulmonary disease) ([facility]) - Coronary atherosclerosis of port lions coronary artery Previously seeing Dr. Sosa - DDD (degenerative disc disease), lumbar - DM type 2 (diabetes mellitus, type 2) ([facility]) Seeing Dr. Foley for podiatry - DVT (deep venous thrombosis) ([facility]) Post op INA, BSO. - Dysphagia Seeing Dr. Beaulieu - Emphysema lung ([facility]) - Essential hypertension - Functional dyspepsia - Gastroparesis 2017 mild - GERD without esophagitis - Headache - History of colon polyps 11/28/2016 - Hyperlipidemia - Hypothyroidism - Incontinence Seeing Dr. Chapman - Lung nodule 02/[address] in 3 months - Morbid obesity ([facility]) - Muscle weakness - Nausea - PARESH on CPAP [facility], no longer using as of 10/2017, was not compliant - PE (pulmonary thromboembolism) ([facility]) Post op INA/BSO. - Pneumonia - RLS (restless legs syndrome) - Shortness of breath - Sleep apnea using oxygen currently, not on CPAP - Unsteadiness on feet - Wheezing ALLERGIES Adhesive Tape (Rosins); Cats; Dogs; Orphenadrine; Capsaicin; Ciprofloxacin; Keflex [Cephalexin]; Niacin; Reglan [Metoclopramide Hcl]; Xanthines; Zofran [Ondansetron Hcl (Pf)] MEDICATIONS Current Outpatient Prescriptions: insulin glargine (LANTUS SOLOSTAR U-100 INSULIN) 100 unit/mL (3 mL) inpn Inject 54 units subcutaneously twice daily omeprazole (PRILOSEC) 20 mg capsule Take 1 capsule by mouth once daily. insulin glargine (LANTUS SOLOSTAR U-100 INSULIN) 100 unit/mL (3 mL) inpn Inject 56 Units subcutaneously twice daily. insulin lispro (HUMALOG KWIKPEN INSULIN) 200 unit/mL (3 mL) injection Inject subcutaneously 14 units with breakfast, 22 units with lunch, and 24 units with dinner metoprolol tartrate, short acting, (LOPRESSOR) 100 mg tablet TAKE 1 TABLET BY MOUTH TWICE A DAY DULoxetine (CYMBALTA) 60 mg capsule TAKE 1 CAPSULE BY MOUTH DAILY metFORMIN ER (GLUCOPHAGE XR) 500 mg 24 hr tablet TAKE 2 TABLETS BY MOUTH TWICE A DAY promethazine (PHENERGAN) 25 mg tablet Take 1 tablet by mouth every 6 hours as needed. aspirin, enteric coated (ASPIRIN, ENTERIC COATED) 81 mg EC tablet TAKE 1 TABLET BY MOUTH EVERY MORNING CLAUDIA-KYLE 8.6 mg tab TAKE 1 TABLET BY MOUTH TWICE A DAY STOOL SOFTENER 100 mg capsule TAKE 1 CAPSULE BY MOUTH DAILY Pseudoephedrine-guaiFENesin (MUCINEX D MAXIMUM STRENGTH) 120- 1,200 mg Tb12 Take 1 tablet by mouth twice daily. estradiol (ESTRACE) 0.01 % (0.1 mg/gram) vaginal cream Apply pea-sized amount to perineum and 1 applicator vaginally Mon, Wed, Fri for atrophic vaginitis. COMPOUNDED PRESCRIPTION Please fit for BiPAP mask. ONETOUCH ULTRA BLUE TEST STRIP test strip USE DIRECTED TO CHECK BLOOD SUGAR 4-5 TIMES DAILY ONETOUCH DELICA LANCETS 30 gauge misc USE TO CHECK BLOOD SUGAR 4-5 TIMES DALIY COMPOUNDED PRESCRIPTION OCD Titration for portable oxygen concentrator Oxygen Flow Rate between 2-6 liters. To keep oxygen saturation at or above 92%. LYRICA 100 mg capsule TAKE 1 CAPSULE BY MOUTH THREE TIMES A DAY ULTICARE PEN NEEDLE 31 gauge x 5/16 ndle USE DIRECTED. TO INJECT INSULINS VITAMIN C 500 mg tablet TAKE 1 TABLET BY MOUTH DAILY Ferrous Gluconate (FERGON) 324 mg (38 mg iron) tablet TAKE 1 TABLET BY MOUTH DAILY WITH BREAKFAST isosorbide mononitrate ER (IMDUR) 60 mg 24 hr tablet Take 1.5 tablets by mouth once daily. In the morning atorvastatin (LIPITOR) 40 mg tablet TAKE 1 TABLET BY MOUTH DAILY diltiazem CD (CARDIZEM CD, CARTIA XT) 180 mg 24 hr capsule TAKE 1 CAPSULE BY MOUTH EVERY MORNING levothyroxine (SYNTHROID) 100 mcg tablet TAKE 1 TABLET BY MOUTH EVERY MORNING ELIQUIS 2.5 mg tab tab(s) TAKE 1 TABLET BY MOUTH TWICE A DAY nitroglycerin sublingual (NITROQUICK) 0.4 mg SL tablet DISSOLVE 1 TAB UNDER THE TONGUE NEEDED FOR CHEST PAIN EVERY 5 MINUTES UP TO 3 TIMES. IF NO RELIEF CALL 911. glucose 4 gram chewable tablet Take 4 tablets by mouth as needed for Low Blood Sugar. OXYGEN, HOME THERAPY, Inhale 3 L/min as instructed as directed. fluticasone (FLONASE) 50 mcg/actuation nasal spray Use 2 Sprays in each nostril once daily. furosemide (LASIX) 40 mg tablet Take 1 tablet by mouth twice daily. albuterol HFA (VENTOLIN HFA) 90 mcg/actuation inhaler Inhale 2 Puffs as instructed every 4 hours as needed for Wheezing/Shortness of Breath. COMPOUNDED PRESCRIPTION Evaluation for diabetic shoes and inserts Dx: E11.65, Z79.4 Incontinence Pad, Liner, Disp pads 1 Device as needed (urinary incontinence). Prevail incontinence pads. Dx: urinary incontinence. Size: small Blood Pressure Cuff - Home Use BLOOD PRESSURE CUFF FOR HOME USE. DX: LABILE BLOOD PRESSURE Blood-Glucose Meter (VersionOneTOUCH ULTRA2) monitoring kit UAD to test blood sugar Alcohol Swabs padm UAD to clean skin before testing blood sugar and injecting insulins. BIPAP Bilevel PAP 15/11 cmH2O with 2 LPM oxygen bleed in, mask, tubing, filters, heated humidity, lifetime supplies. Please fax 30 day compliance download to [phone]. Dx: G47.33, G47.39. DME: [facility] mupirocin (BACTROBAN) 2 % ointment Apply 1 application to affected area three times daily. capsaicin (ZOSTRIX-HP) 0.075 % topical cream Apply 1 application to affected area four times daily. No current facility-administered medications for this visit. Medications and allergies reviewed by this provider. 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 Social History Main Topics Smoking status: Former Smoker Packs/day: 1.00 Years: 28.00 Types: Cigarettes Start date: 1978 Quit date: 09/22/2005 Smokeless tobacco: Never Used Comment: Father smoked in childhood. 2nd spouse smoked in home. Alcohol use: No Drug use: No Sexual activity: No Social History Narrative 1 year in current home. No basement, 1 parakeet. Room A/C. Electric baseboard heat. REVIEW OF SYSTEMS GENERAL: No weight loss, malaise or fevers RESPIRATORY: See HPI CARDIOVASCULAR: See HPI GI: See HPI OBJECTIVE: BP 132/62 (BP Site: Right Arm, BP Position: Sitting, BP Cuff Size: Large Adult) Pulse (!) 59 Resp 18 Wt 96.6 kg (213 lb 0.6 oz) SpO2 96% BMI 38.97 kg/m? . Vital signs reviewed by this provider. APPEARANCE Well appearing, alert, in no acute distress, well-hydrated, well nourished. Alert and oriented X3 HEART RRR with normal S1 and S2, no murmurs, no gallops, no JVD appreciated LUNG clear to auscultation. No wheezes, rhonchi, or rales. EXTREMITIES Extremities normal, No deformities, No skin discoloration, No edema and Normal pulses bilaterally. SKIN Skin color, texture, turgor normal, no suspicious rashes or lesions BACILIO/ARB MED PRESCRIBED due on 04/22/2018 STATIN MED ADHERENCE due on 04/22/2018 DIABETES MED ADHERENCE due on 04/22/2018 INFLUENZA(1) due on 05/23/2018 DIABETIC FOOT EXAM due on 06/03/2018 HBA1C due on 06/13/2018 URINE ALBUMIN:CREATININE RATIO due on 06/19/2018 DILATED RETINAL EXAM due on 07/03/2018 MAMMOGRAM due on 12/11/2018 LDL CHOLESTEROL due on 12/11/2018 ANNUAL PCP TEAM CHRONIC DISEASE VISIT due on 02/20/2019 SERUM CREATININE due on 03/20/2019 BLOOD PRESSURE CONTROLLED due on 03/20/2019 COLORECTAL CANCER SCREENING,SEE MODIFIER due on 11/30/2019 PAP EVERY 5 YEARS due on 11/27/2021 HPV EVERY 5 YEARS due on 11/27/2021 DTAP,TDAP,TD(2 - Td) due on 10/02/2026 ONE PNEUMOVAX PRIOR TO AGE 65 Completed HEPATITIS C SCREENING Completed ASSESSMENT/PLAN: 1. Hypoglycemia - ICD9: 251.2, ICD10: E16.2 (primary diagnosis) - decrease Lantus to 54 units twice daily due to hypoglycemia. Will have PCC contact patient next week to follow-up on glucose readings 2. Type 2 diabetes mellitus with hyperglycemia, with long- term current use of insulin (HCC) - ICD9: 250.00, 790.29, V58.67, ICD10: E11.65, Z79.4 - plan as above - INSULIN GLARGINE (U-100) 100 UNIT/ML (3 ML) SUBCUTANEOUS PEN 3. PARESH treated with BiPAP - ICD9: 327.23, ICD10: G47.33 - will reorder after sleep study following recommendations - instructed the need to wear oxygen 24/7 - discussed the importance of taking oxygen with her when she leaves house, verbalizes understanding 4. Hypokalemia - ICD9: 276.8, ICD10: E87.6- - patient reports she had to have potassium in hospital - last recorded I see on my follow-up paper work is 3.5 - will recheck as she does take lasix 40 mg BID -repeat potassium today and will call with results - BASIC METABOLIC PNL 5. Hospital discharge follow-up - ICD9: V67.59, ICD10: Z09 - as above 6. Essential hypertension - ICD9: 401.9, ICD10: I10 - good control - Continue current medication(s) - Encouraged dietary sodium restriction/DASH diet - Recommended regular aerobic exercise. - Reviewed risks of HTN and principles of treatment - Goal of BP <140/90 7. Acute hypercapnic respiratory failure due to obstructive sleep apnea (HCC) - ICD9: 518.81, 327.23, ICD10: J96.02, G47.33 - plan as in #3 Katie Mckeon, MEDIA JOB TITLES.DATA INPUT CLERK Prescription instructions reviewed with patient as applicable. Patient advised if symptoms do not improve or if symptoms worsen sooner, to contact their primary care physician. Potential red flag symptoms discussed with the patient. Reviewed appropriate action plan to take if red flag symptoms occur. Patient agreeable to treatment plan. BASIC METABOLIC PANL Collected: 04/13/2018 Status: F Source: RUSSELL 2:30 PM [facility] [place] REPOSITORY TYPE CODE TESTS RESULT OUT OF REFERENCE UNITS RANGE LAB GLU 74-99 mg/dL High Glucose 177 Result Comment: The [place] Diabetes Association (ADA) provides guidance for cutoff values for fasting glucose and random glucose. The ADA defines fasting as no caloric intake for at least 8 hours. Fas ting plasma glucose results between 100 to 125 mg/dL indicate increased risk for diabetes (prediabetes). Fasting plasma glucose results greater than or equal to 126 mg/dL meet the criteria for diagnosis of diabetes. In the absence of unequivocal hyperglycemia, results should be confirmed by repeat testing. In a patient with classic symptoms of hyperglycemia or hyperglycemic crisis, random plasma glucose results greater than or equal to 200 mg/dL meet the criteria for diagnosis of diabetes. Reference: Standards of Medical Care in Diabetes 2016, [place] Diabetes Association. Diabetes Care. 2016.39(Suppl 1). LAB BUN 7-21 mg/dL BUN 14 LAB CRET 0.58-0.96 mg/dL Creatinine 0.67 LAB NA 136-144 mmol/L Sodium 142 LAB K 3.7-5.1 mmol/L Potassium 3.8 LAB CL 97-105 mmol/L Low Chloride 95 LAB CO2 22-30 mmol/L CO2 High 34 LAB AGAP 9-18 mmol/L Anion Gap 13 LAB CA 8.5-10.2 mg/dL Calcium, Total 8.8 LAB GFRAA eGFR- Amer. >60 LAB GFRNAA . eGFR-All Other Races >60 Result Comment: eGFR (Estimated GFR) Units of measure: mL/min/1.73 meters squared eGFR is derived from the reexpressed MDRD Study equation using the following parameters: serum creatinine, age, gender and race. The creatinine assay has been calibrated to be traceable to IDMS. An eGFR <60 mL/min/1.73m2 for >3 months is consistent with chronic kidney disease. Refer to KDOQI guidelines for clinical interpretation. In patients with unstable renal function, e.g. those with acute kidney injury, the eGFR may not accurately reflect actual GFR. Performed By: #### BMP #### [facility] [address] [place], [place] [address] CNOV Observed: 04/13/2018 Status: COMPLETED Source: RUSSELL 1:00 PM [facility] REPOSITORY Office Visit (FAMPWS) TAMIA PANDA ([id number]) 1955 F Date Time Provider Department 04/13/18 1:00 PM KATIE MCKEON ([facility]) FAMPWS During your visit today, we recorded the following information about you: Pulse Respiration Blood pressure Weight 59/minute 18/minute 132/62 96.6 kg Katie Mckeon APRN.CNP 04/13/2018 4:53 PM Signed 04/13/2018 Patient presents with: Hospital F/U HPI: Tamia Panda is a 63 year old female who presents here today for Hospital Discharge follow-up. Admitted to [facility] from 04/04-04/07 for complaint of difficulty to arouse. TCM note prepared by PCC saad Silvestre as follows: TRANSITION CARE MANAGEMENT (TCM) INITIAL CONTACT ? Provider Action/FYI: ? FBS 173 One episode of SOB yesterday, didn't use rescue inhaler, none since Discussed f/u for lung mass with PCP, will repeat chest CT in 2 months ? ? Initial contact with patient post discharge, spoke to patient. Patient identified by name and . ? SUMMARY: -Pt discharged from [facility] on 04/07. -Follow up appointment on 04/13 with ARTURO Wilson. -Medication review done partially with patient and with [facility]. -Admitted for: Acute metabolic encephalopathy attributed to a combination of hypoglycemia as well as hypercapnia Diabetes mellitus type 2 with hypoglycemic episodes Acute hypercapnic respiratory failure secondary to PARESH, obesity hypoventilation syndrome, COPD ? CONCERNS: FBS this AM 173 ? Reports short episode of SOB yesterday, none today Instructed to use Albuterol rescue inhaler for any SOB, verbalized agreement ? NEW MEDICATIONS: None ? MEDS HELD/DISCONTINUED: None ? BRIEF HOSPITAL COURSE: Patient is a 63-year-old lady with multiple comorbidities admitted with changes in her level of sensorium ? Acute metabolic encephalopathy attributed to a combination of hypoglycemia as well as hypercapnia ? 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 Patient was admitted to monitored bed with adjustment of her insulin regimen ? Acute hypercapnic respiratory failure secondary to combination of obstructive sleep apnea, obesity hypoventilation syndrome as well as COPD patient apparently noncompliant with her BiPAP at home. He will discussion with patient and family regarding possibility of patient being transferred to a intermediate facility patient declined. ? Morbid obesity with BMI of 40.1 lifestyle modification including weight loss advised ? Lung mass patient is scheduled for follow-up with PCP for evaluation; patient apparently has an appointment on today 04/06/2018 with patient being in the hospital she was advised to reschedule this appointment ? Obstructive sleep apnea; patient educated on the need to be compliant with her BiPAP at night ? Saad Silvestre, RN Since discharge patient has been felling well. Two incidents of low blood sugar one with sugar at 58 the other of 70. The one low was before lunch time. She is unsure of when the second occurred. She reports she has been wearing her oxygen 3L/NC during the night and day, however she does not have it on at this time. She reports she was sleeping when her ride came to pick her up today and she had to leave quickly and was unable to change to her portable bottle. She does have imprints on her face were it appears she had been wearing her oxygen. She is 96% on room air on arrival today. She is having a sleep study tonight so she can get a new BIPAP?CPAP machine. She had previously been on BIPAP at 06/08 with 2L oxygen at night, however she was non complaint with usage and it was removed from home. Denies fever, chills, SOB, wheezing, dyspnea, chest pain, lef swelling, nausea, vomiting, or constipation. ? PAST MEDICAL HISTORY Diagnosis Date - Acute chronic obstructive pulmonary disease with respiratory failure ([facility]) - AF (paroxysmal atrial fibrillation) ([facility]) - Anxiety - Arthritis Seeing Dr Elliott - Cervical cancer ([facility]) hysterectomy - CHF (congestive heart failure) ([facility]) - Chronic back pain Seeing Dr. Wallace - Constipation - COPD (chronic obstructive pulmonary disease) ([facility]) - Coronary atherosclerosis of port lions coronary artery Previously seeing Dr. Sosa - DDD (degenerative disc disease), lumbar - DM type 2 (diabetes mellitus, type 2) ([facility]) Seeing Dr. Foley for podiatry - DVT (deep venous thrombosis) ([facility]) Post op INA, BSO. - Dysphagia Seeing Dr. Beaulieu - Emphysema lung ([facility]) - Essential hypertension - Functional dyspepsia - Gastroparesis 2017 mild - GERD without esophagitis - Headache - History of colon polyps 11/28/2016 - Hyperlipidemia - Hypothyroidism - Incontinence Seeing Dr. Chapman - Lung nodule 02/[address] in 3 months - Morbid obesity ([facility]) - Muscle weakness - Nausea - PARESH on CPAP [facility], no longer using as of 10/2017, was not compliant - PE (pulmonary thromboembolism) ([facility]) Post op INA/BSO. - Pneumonia - RLS (restless legs syndrome) - Shortness of breath - Sleep apnea using oxygen currently, not on CPAP - Unsteadiness on feet - Wheezing ALLERGIES Adhesive Tape (Rosins); Cats; Dogs; Orphenadrine; Capsaicin; Ciprofloxacin; Keflex [Cephalexin]; Niacin; Reglan [Metoclopramide Hcl]; Xanthines; Zofran [Ondansetron Hcl (Pf)] MEDICATIONS Current Outpatient Prescriptions: insulin glargine (LANTUS SOLOSTAR U-100 INSULIN) 100 unit/mL (3 mL) inpn Inject 54 units subcutaneously twice daily omeprazole (PRILOSEC) 20 mg capsule Take 1 capsule by mouth once daily. insulin glargine (LANTUS SOLOSTAR U-100 INSULIN) 100 unit/mL (3 mL) inpn Inject 56 Units subcutaneously twice daily. insulin lispro (HUMALOG KWIKPEN INSULIN) 200 unit/mL (3 mL) injection Inject subcutaneously 14 units with breakfast, 22 units with lunch, and 24 units with dinner metoprolol tartrate, short acting, (LOPRESSOR) 100 mg tablet TAKE 1 TABLET BY MOUTH TWICE A DAY DULoxetine (CYMBALTA) 60 mg capsule TAKE 1 CAPSULE BY MOUTH DAILY metFORMIN ER (GLUCOPHAGE XR) 500 mg 24 hr tablet TAKE 2 TABLETS BY MOUTH TWICE A DAY promethazine (PHENERGAN) 25 mg tablet Take 1 tablet by mouth every 6 hours as needed. aspirin, enteric coated (ASPIRIN, ENTERIC COATED) 81 mg EC tablet TAKE 1 TABLET BY MOUTH EVERY MORNING CLAUDIA-KYLE 8.6 mg tab TAKE 1 TABLET BY MOUTH TWICE A DAY STOOL SOFTENER 100 mg capsule TAKE 1 CAPSULE BY MOUTH DAILY Pseudoephedrine-guaiFENesin (MUCINEX D MAXIMUM STRENGTH) 120- 1,200 mg Tb12 Take 1 tablet by mouth twice daily. estradiol (ESTRACE) 0.01 % (0.1 mg/gram) vaginal cream Apply pea-sized amount to perineum and 1 applicator vaginally Mon, Wed, Fri for atrophic vaginitis. COMPOUNDED PRESCRIPTION Please fit for BiPAP mask. ONETOUCH ULTRA BLUE TEST STRIP test strip USE DIRECTED TO CHECK BLOOD SUGAR 4-5 TIMES DAILY ONETOUCH DELICA LANCETS 30 gauge misc USE TO CHECK BLOOD SUGAR 4-5 TIMES DALIY COMPOUNDED PRESCRIPTION OCD Titration for portable oxygen concentrator Oxygen Flow Rate between 2-6 liters. To keep oxygen saturation at or above 92%. LYRICA 100 mg capsule TAKE 1 CAPSULE BY MOUTH THREE TIMES A DAY ULTICARE PEN NEEDLE 31 gauge x 02/04 ndle USE DIRECTED. TO INJECT INSULINS VITAMIN C 500 mg tablet TAKE 1 TABLET BY MOUTH DAILY Ferrous Gluconate (FERGON) 324 mg (38 mg iron) tablet TAKE 1 TABLET BY MOUTH DAILY WITH BREAKFAST isosorbide mononitrate ER (IMDUR) 60 mg 24 hr tablet Take 1.5 tablets by mouth once daily. In the morning atorvastatin (LIPITOR) 40 mg tablet TAKE 1 TABLET BY MOUTH DAILY diltiazem CD (CARDIZEM CD, CARTIA XT) 180 mg 24 hr capsule TAKE 1 CAPSULE BY MOUTH EVERY MORNING levothyroxine (SYNTHROID) 100 mcg tablet TAKE 1 TABLET BY MOUTH EVERY MORNING ELIQUIS 2.5 mg tab tab(s) TAKE 1 TABLET BY MOUTH TWICE A DAY nitroglycerin sublingual (NITROQUICK) 0.4 mg SL tablet DISSOLVE 1 TAB UNDER THE TONGUE NEEDED FOR CHEST PAIN EVERY 5 MINUTES UP TO 3 TIMES. IF NO RELIEF CALL 911. glucose 4 gram chewable tablet Take 4 tablets by mouth as needed for Low Blood Sugar. OXYGEN, HOME THERAPY, Inhale 3 L/min as instructed as directed. fluticasone (FLONASE) 50 mcg/actuation nasal spray Use 2 Sprays in each nostril once daily. furosemide (LASIX) 40 mg tablet Take 1 tablet by mouth twice daily. albuterol HFA (VENTOLIN HFA) 90 mcg/actuation inhaler Inhale 2 Puffs as instructed every 4 hours as needed for Wheezing/Shortness of Breath. COMPOUNDED PRESCRIPTION Evaluation for diabetic shoes and inserts Dx: E11.65, Z79.4 Incontinence Pad, Liner, Disp pads 1 Device as needed (urinary incontinence). Prevail incontinence pads. Dx: urinary incontinence. Size: small Blood Pressure Cuff - Home Use BLOOD PRESSURE CUFF FOR HOME USE. DX: LABILE BLOOD PRESSURE Blood-Glucose Meter (ONETOUCH ULTRA2) monitoring kit UAD to test blood sugar Alcohol Swabs padm UAD to clean skin before testing blood sugar and injecting insulins. BIPAP Bilevel PAP 15/11 cmH2O with 2 LPM oxygen bleed in, mask, tubing, filters, heated humidity, lifetime supplies. Please fax 30 day compliance download to [phone]. Dx: G47.33, G47.39. DME: [facility] mupirocin (BACTROBAN) 2 % ointment Apply 1 application to affected area three times daily. capsaicin (ZOSTRIX-HP) 0.075 % topical cream Apply 1 application to affected area four times daily. No current facility-administered medications for this visit. Medications and allergies reviewed by this provider. 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 Social History Main Topics Smoking status: Former Smoker Packs/day: 1.00 Years: 28.00 Types: Cigarettes Start date: 1978 Quit date: 09/22/2005 Smokeless tobacco: Never Used Comment: Father smoked in childhood. 2nd spouse smoked in home. Alcohol use: No Drug use: No Sexual activity: No Social History Narrative 1 year in current home. No basement, 1 parakeet. Room A/C. Electric baseboard heat. REVIEW OF SYSTEMS GENERAL: No weight loss, malaise or fevers RESPIRATORY: See HPI CARDIOVASCULAR: See HPI GI: See HPI OBJECTIVE: BP 132/62 (BP Site: Right Arm, BP Position: Sitting, BP Cuff Size: Large Adult) Pulse (!) 59 Resp 18 Wt 96.6 kg (213 lb 0.6 oz) SpO2 96% BMI 38.97 kg/m? . Vital signs reviewed by this provider. APPEARANCE Well appearing, alert, in no acute distress, well- hydrated, well nourished. Alert and oriented X3 HEART RRR with normal S1 and S2, no murmurs, no gallops, no JVD appreciated LUNG clear to auscultation. No wheezes, rhonchi, or rales. EXTREMITIES Extremities normal, No deformities, No skin discoloration, No edema and Normal pulses bilaterally. SKIN Skin color, texture, turgor normal, no suspicious rashes or lesions BACILIO/ARB MED PRESCRIBED due on 04/22/2018 STATIN MED ADHERENCE due on 04/22/2018 DIABETES MED ADHERENCE due on 04/22/2018 INFLUENZA(1) due on 05/23/2018 DIABETIC FOOT EXAM due on 06/03/2018 HBA1C due on 06/13/2018 URINE ALBUMIN:CREATININE RATIO due on 06/19/2018 DILATED RETINAL EXAM due on 07/03/2018 MAMMOGRAM due on 12/11/2018 LDL CHOLESTEROL due on 12/11/2018 ANNUAL PCP TEAM CHRONIC DISEASE VISIT due on 02/20/2019 SERUM CREATININE due on 03/20/2019 BLOOD PRESSURE CONTROLLED due on 03/20/2019 COLORECTAL CANCER SCREENING,SEE MODIFIER due on 11/30/2019 PAP EVERY 5 YEARS due on 11/27/2021 HPV EVERY 5 YEARS due on 11/27/2021 DTAP,TDAP,TD(2 - Td) due on 10/02/2026 ONE PNEUMOVAX PRIOR TO AGE 65 Completed HEPATITIS C SCREENING Completed ASSESSMENT/PLAN: 1. Hypoglycemia - ICD9: 251.2, ICD10: E16.2 (primary diagnosis) - decrease Lantus to 54 units twice daily due to hypoglycemia. Will have PCC contact patient next week to follow-up on glucose readings 2. Type 2 diabetes mellitus with hyperglycemia, with long- term current use of insulin (HCC) - ICD9: 250.00, 790.29, V58.67, ICD10: E11.65, Z79.4 - plan as above - INSULIN GLARGINE (U-100) 100 UNIT/ML (3 ML) SUBCUTANEOUS PEN 3. PARESH treated with BiPAP - ICD9: 327.23, ICD10: G47.33 - will reorder after sleep study following recommendations - instructed the need to wear oxygen / - discussed the importance of taking oxygen with her when she leaves house, verbalizes understanding 4. Hypokalemia - ICD9: 276.8, ICD10: E87.6- - patient reports she had to have potassium in hospital - last recorded I see on my follow-up paper work is 3.5 - will recheck as she does take lasix 40 mg BID -repeat potassium today and will call with results - BASIC METABOLIC PNL 5. Hospital discharge follow-up - ICD9: V67.59, ICD10: Z09 - as above 6. Essential hypertension - ICD9: 401.9, ICD10: I10 - good control - Continue current medication(s) - Encouraged dietary sodium restriction/DASH diet - Recommended regular aerobic exercise. - Reviewed risks of HTN and principles of treatment - Goal of BP <140/90 7. Acute hypercapnic respiratory failure due to obstructive sleep apnea (HCC) - ICD9: 518.81, 327.23, ICD10: J96.02, G47.33 - plan as in #3 Katie PerazalogNAPOLEON solomon.DATA INPUT CLERK Prescription instructions reviewed with patient as applicable. Patient advised if symptoms do not improve or if symptoms worsen sooner, to contact their primary care physician. Potential red flag symptoms discussed with the patient. Reviewed appropriate action plan to take if red flag symptoms occur. Patient agreeable to treatment plan. Referring Provider: NANDA OLIVEIRA) [[id number]] Allergies As of Date: 04/13/2018 Noted Allergy Reaction ADHESIVE TAPE (ROSINS) 04/04/2015 5 - Intolerance Comments: Surgical tape leaves rash Irritates skin badly and blisters along with medical tape CATS 04/10/2016 14 - Other: See Comments Comments: Congested and itchy, difficulty breathing DOGS 04/10/2016 14 - Other: See Comments Comments: Congestion, sneezing, and difficulty breathing ORPHENADRINE 04/10/2016 16 - Unknown CAPSAICIN 03/02/2018 9 - Itching CIPROFLOXACIN 12/11/2011 14 - Other: See Comments Comments: Red, hot, itchy rash KEFLEX (CEPHALEXIN) 07/10/2016 4 - Hives Comments: Negative skin testing and successful completion of an oral amoxicillin challenge was completed on 03/02/2018. Cephalexin shares an almost identical R1 side chain to amoxicillin; therefore, it is unlikely that she would be at elevated risk for developing an IgE-mediated reaction (allergic/anaphylactic). If she should need this medication in the future, I would recommend giving the first dose in a supervised medical setting. If no reaction after 30 minutes, proceed with regular dosing. NIACIN 04/04/2015 16 - Unknown Comments: Pt states its niacin its niaspan REGLAN (METOCLOPRAMIDE HCL) 03/04/2017 14 - Other: See Comments Comments: Unable to sleep XANTHINES 10/18/2004 16 - Unknown ZOFRAN (ONDANSETRON HCL (PF)) 02/03/2018 9 - Itching Date Reviewed: 04/13/2018 Reviewed by: Yessi Sanchez LPN - Fully Assessed Reason for Visit: Hospital F/U [57] Primary Visit Diagnosis:Hypoglycemia [E16.2] Other Visit Diagnoses:Type 2 diabetes mellitus with hyperglycemia, with long-term current use of insulin (HCC) [E11.65, Z79.4] PARESH treated with BiPAP [G47.33] Hypokalemia [E87.6] Hospital discharge follow-up [Z09] Essential hypertension [I10] Acute hypercapnic respiratory failure due to obstructive sleep apnea (HCC) [J96.02, G47.33] Order(s):BASIC METABOLIC PNL [SQBMP] Order #: [id number] FUTURE insulin glargine (LANTUS SOLOSTAR U-100 INSULIN) 100 unit/mL (3 mL) inpnInject 54 units subcutaneously twice dailyDisp: 3 PenRfl: 1 Prescriptions as of 04/13/2018 Sig: INSULIN GLARGINE (U-100) 100 * Inject 54 units subcutaneousl* OMEPRAZOLE 20 MG CAPSULE,MARIA EUGENIA* Take 1 capsule by mouth once * INSULIN GLARGINE (U-100) 100 * Inject 56 Units subcutaneousl* INSULIN LISPRO (U-200) 200 UN* Inject subcutaneously 14 unit* METOPROLOL TARTRATE 100 MG TA* TAKE 1 TABLET BY MOUTH TWICE * DULOXETINE 60 MG CAPSULE,MARIA EUGENIA* TAKE 1 CAPSULE BY MOUTH DAILY METFORMIN ER 500 MG TABLET,EX* TAKE 2 TABLETS BY MOUTH TWICE* PROMETHAZINE 25 MG TABLET Take 1 tablet by mouth every * ASPIRIN 81 MG TABLET,DELAYED * TAKE 1 TABLET BY MOUTH EVERY * CLAUDIA-KYLE 8.6 MG TABLET TAKE 1 TABLET BY MOUTH TWICE * STOOL SOFTENER 100 MG CAPSULE TAKE 1 CAPSULE BY MOUTH DAILY PSEUDOEPHEDRINE-GUAIFENESIN E* Take 1 tablet by mouth twice * ESTRADIOL 0.01% (0.1 MG/GRAM)* Apply pea-sized amount to per* COMPOUNDED PRESCRIPTION Please fit for BiPAP mask. ONETOUCH ULTRA BLUE TEST STRIP USE DIRECTED TO CHECK BLOO* ONETOUCH DELICA LANCETS 30 GA* USE TO CHECK BLOOD SUGAR 4-5 * COMPOUNDED PRESCRIPTION OCD Titration for portable ox* LYRICA 100 MG CAPSULE TAKE 1 CAPSULE BY MOUTH THREE* ULTICARE PEN NEEDLE 31 GAUGE * USE DIRECTED. TO INJECT IN* VITAMIN C 500 MG TABLET TAKE 1 TABLET BY MOUTH DAILY FERROUS GLUCONATE 324 MG (38 * TAKE 1 TABLET BY MOUTH DAILY * ISOSORBIDE MONONITRATE ER 60 * Take 1.5 tablets by mouth onc* ATORVASTATIN 40 MG TABLET TAKE 1 TABLET BY MOUTH DAILY DILTIAZEM SR 180 MG 24 HR CAP TAKE 1 CAPSULE BY MOUTH EVERY* LEVOTHYROXINE 100 MCG TABLET TAKE 1 TABLET BY MOUTH EVERY * ELIQUIS 2.5 MG TABLET TAKE 1 TABLET BY MOUTH TWICE * NITROGLYCERIN 0.4 MG SUBLINGU* DISSOLVE 1 TAB UNDER THE TONG* GLUCOSE 4 GRAM CHEWABLE TABLET Take 4 tablets by mouth as ne* OXYGEN (HOME THERAPY) Inhale 3 L/min as instructed * FLUTICASONE 50 MCG/ACTUATION * Use 2 Sprays in each nostril * FUROSEMIDE 40 MG TABLET Take 1 tablet by mouth twice * ALBUTEROL SULFATE HFA 90 MCG/* Inhale 2 Puffs as instructed * COMPOUNDED PRESCRIPTION Evaluation for diabetic shoes* INCONTINENCE PAD, LINER, DISP* 1 Device as needed (urinary i* COMPOUNDED PRESCRIPTION BLOOD PRESSURE CUFF FOR HOME * BLOOD-GLUCOSE METER KIT UAD to test blood sugar ALCOHOL SWABS UAD to clean skin before test* BIPAP Bilevel PAP 15/11 cmH2O with * MUPIROCIN 2 % TOPICAL OINTMENT Apply 1 application to affect* CAPSAICIN 0.075 % TOPICAL CRE* Apply 1 application to affect* Problem List As Of Date 04/13/2018 Noted Resolved SUBJECTIVE TINNITUS [H93.19] INVALID FOR* PARESH treated with BiPAP [G47.33] INVALID FOR* Hyperlipidemia [E78.5] INVALID FOR* Coronary disease [I25.10] INVALID FOR* Diabetes mellitus, type II ([facility]) [E11.9] INVALID FOR* Morbid obesity ([facility]) [E66.01] Hypothyroidism [E03.9] Anxiety [F41.9] Sleep apnea [G47.30] 02/14/2017 Essential hypertension [I10] Coronary artery disease of port lions artery of [place]* AF (paroxysmal atrial fibrillation) ([facility]) [I48.* COPD (chronic obstructive pulmonary disease) (H* GERD without esophagitis [K21.9] Dysphagia [R13.10] Constipation [K59.00] DM type 2 (diabetes mellitus, type 2) ([facility]) [E1* 02/14/2017 Shortness of breath [R06.02] 02/14/2017 Arthritis [M19.90] More... CHF (congestive heart failure) ([facility]) [I50.9] BPPV (benign paroxysmal positional vertigo) [H8*INVALID FOR* RLS (restless legs syndrome) [G25.81] INVALID FOR* Iron deficiency concern: RE RLS [E61.1] INVALID FOR* Tubular adenoma [D36.9] INVALID FOR* Incontinence [R32] More... Gastroparesis [K31.84] INVALID FOR* Pre-op testing [Z01.818] INVALID FOR* More... Hypercapnia [R06.89] INVALID FOR* S/P coronary artery stent placement [Z95.5] INVALID FOR* Stage 3 chronic kidney disease [N18.3] INVALID FOR* Depression [F32.9] INVALID FOR* Obesity, Class II, BMI 35-39.9 [E66.9] INVALID FOR* Prescriptions ordered this encounter Disp Refills Start End INSULIN GLARGINE (U-100) 100 UNIT/ML* 3 Pen 1 04/13/2018 Sig: Inject 54 units subcutaneously twice daily Medications Discontinued During This Encounter insulin glargine (LANTUS SOLOSTAR U-* 01/15/2018 04/13/2018 Class: Med Update Sig: Inject 56 units subcutaneously twice daily Disc: Reason for discontinue is not on file. Follow-up and Disposition History Recorded Encounter Status:Closed by KATIE MCKEON CNP on 04/13/18 MELCHOR Observed: 04/13/2018 Status: COMPLETED Source: [facility] 12:00 AM [facility] REPOSITORY Patient Outreach (FAMPWS) TAMIA PANDA ([id number]) 1955 F Date Time Provider Department 04/13/18 SAAD SILVESTRE) FAMPWS During your visit today, we recorded the following information about you: Saad Silvestre RN 04/13/2018 4:54 PM Signed PRIMARY CARE COORDINATION IN OFFICE VISIT WITH PCP Patient has been identified by name and date of . PCP Assessment/Plan: Reviewed PCP plan with patient using Teach Back Discussed wearing oxygen at all times. Pt was in a hurry and forgot her portable oxygen. Discussed ideas for remembering to take oxygen to appts, etc. Discussed BiPAP. Has sleep study tonight and discussed, once re-approved pt needs to wear it every night to prevent further hospitalizations and dangerous events. Discussed hypoglycemia, decreasing insulin and eating lunch in a timely manner since most of pt's lows occur late morning/early afternoon PCC Plan of Care: PCC Interventions: TC to [place] [facility], informed patient is having a repeat sleep study tonight to have BiPAP re-initiated in pt's home. Pt has had numerous hospitalizations for respiratory failure. Asked to have notation placed in patient's chart when she is to have BiPAP set up that respiratory therapist goes to the pt's home. Pt has difficulty understanding instructions at times and had to be reinforced multiple times how to fill her portable oxygen tanks correctly. PCP is requesting home set up with therapist. States she will make a notation and discuss with quarry supervisor. Informed if the decision is made that set up cannot occur in home please call PCC, verbalized understanding and agreement. TC to [facility] Home Health, asked if pt is still receiving PT? States no, PT discharged pt on 03/18 Next Office Visit: Visit date not found Plan For Next Call: one week Saad Silvestre RN April 13, 2018 Allergies As of Date: 04/13/2018 Noted Allergy Reaction ADHESIVE TAPE (ROSINS) 04/04/2015 5 - Intolerance Comments: Surgical tape leaves rash Irritates skin badly and blisters along with medical tape CATS 04/10/2016 14 - Other: See Comments Comments: Congested and itchy, difficulty breathing DOGS 04/10/2016 14 - Other: See Comments Comments: Congestion, sneezing, and difficulty breathing ORPHENADRINE 04/10/2016 16 - Unknown CAPSAICIN 03/02/2018 9 - Itching CIPROFLOXACIN 12/11/2011 14 - Other: See Comments Comments: Red, hot, itchy rash KEFLEX (CEPHALEXIN) 07/10/2016 4 - Hives Comments: Negative skin testing and successful completion of an oral amoxicillin challenge was completed on 03/02/2018. Cephalexin shares an almost identical R1 side chain to amoxicillin; therefore, it is unlikely that she would be at elevated risk for developing an IgE-mediated reaction (allergic/anaphylactic). If she should need this medication in the future, I would recommend giving the first dose in a supervised medical setting. If no reaction after 30 minutes, proceed with regular dosing. NIACIN 04/04/2015 16 - Unknown Comments: Pt states its niacin its niaspan REGLAN (METOCLOPRAMIDE HCL) 03/04/2017 14 - Other: See Comments Comments: Unable to sleep XANTHINES 10/18/2004 16 - Unknown ZOFRAN (ONDANSETRON HCL (PF)) 02/03/2018 9 - Itching Date Reviewed: 04/13/2018 Reviewed by: Yessi Sanchez LPN - Fully Assessed Reason for Visit: Transition Of Care [4074] Prescriptions as of 04/13/2018 Sig: INSULIN GLARGINE (U-100) 100 * Inject 54 units subcutaneousl* OMEPRAZOLE 20 MG CAPSULE,MARIA EUGENIA* Take 1 capsule by mouth once * INSULIN GLARGINE (U-100) 100 * Inject 56 Units subcutaneousl* INSULIN LISPRO (U-200) 200 UN* Inject subcutaneously 14 unit* METOPROLOL TARTRATE 100 MG TA* TAKE 1 TABLET BY MOUTH TWICE * DULOXETINE 60 MG CAPSULE,MARIA EUGENIA* TAKE 1 CAPSULE BY MOUTH DAILY METFORMIN ER 500 MG TABLET,EX* TAKE 2 TABLETS BY MOUTH TWICE* PROMETHAZINE 25 MG TABLET Take 1 tablet by mouth every * ASPIRIN 81 MG TABLET,DELAYED * TAKE 1 TABLET BY MOUTH EVERY * CLAUDIA-KYLE 8.6 MG TABLET TAKE 1 TABLET BY MOUTH TWICE * STOOL SOFTENER 100 MG CAPSULE TAKE 1 CAPSULE BY MOUTH DAILY PSEUDOEPHEDRINE-GUAIFENESIN E* Take 1 tablet by mouth twice * ESTRADIOL 0.01% (0.1 MG/GRAM)* Apply pea-sized amount to per* COMPOUNDED PRESCRIPTION Please fit for BiPAP mask. ONETOUCH ULTRA BLUE TEST STRIP USE DIRECTED TO CHECK BLOO* ONETOUCH DELICA LANCETS 30 GA* USE TO CHECK BLOOD SUGAR 4-5 * BIPAP Bilevel PAP 15/11 cmH2O with * COMPOUNDED PRESCRIPTION OCD Titration for portable ox* MUPIROCIN 2 % TOPICAL OINTMENT Apply 1 application to affect* LYRICA 100 MG CAPSULE TAKE 1 CAPSULE BY MOUTH THREE* CAPSAICIN 0.075 % TOPICAL CRE* Apply 1 application to affect* ULTICARE PEN NEEDLE 31 GAUGE * USE DIRECTED. TO INJECT IN* VITAMIN C 500 MG TABLET TAKE 1 TABLET BY MOUTH DAILY FERROUS GLUCONATE 324 MG (38 * TAKE 1 TABLET BY MOUTH DAILY * ISOSORBIDE MONONITRATE ER 60 * Take 1.5 tablets by mouth onc* ATORVASTATIN 40 MG TABLET TAKE 1 TABLET BY MOUTH DAILY DILTIAZEM SR 180 MG 24 HR CAP TAKE 1 CAPSULE BY MOUTH EVERY* LEVOTHYROXINE 100 MCG TABLET TAKE 1 TABLET BY MOUTH EVERY * ELIQUIS 2.5 MG TABLET TAKE 1 TABLET BY MOUTH TWICE * NITROGLYCERIN 0.4 MG SUBLINGU* DISSOLVE 1 TAB UNDER THE TONG* GLUCOSE 4 GRAM CHEWABLE TABLET Take 4 tablets by mouth as ne* OXYGEN (HOME THERAPY) Inhale 3 L/min as instructed * FLUTICASONE 50 MCG/ACTUATION * Use 2 Sprays in each nostril * FUROSEMIDE 40 MG TABLET Take 1 tablet by mouth twice * ALBUTEROL SULFATE HFA 90 MCG/* Inhale 2 Puffs as instructed * COMPOUNDED PRESCRIPTION Evaluation for diabetic shoes* INCONTINENCE PAD, LINER, DISP* 1 Device as needed (urinary i* COMPOUNDED PRESCRIPTION BLOOD PRESSURE CUFF FOR HOME * BLOOD-GLUCOSE METER KIT UAD to test blood sugar ALCOHOL SWABS UAD to clean skin before test* Problem List As Of Date 04/13/2018 Noted Resolved SUBJECTIVE TINNITUS [H93.19] INVALID FOR* PARESH treated with BiPAP [G47.33] INVALID FOR* Hyperlipidemia [E78.5] INVALID FOR* Coronary disease [I25.10] INVALID FOR* Diabetes mellitus, type II ([facility]) [E11.9] INVALID FOR* Morbid obesity ([facility]) [E66.01] Hypothyroidism [E03.9] Anxiety [F41.9] Sleep apnea [G47.30] 02/14/2017 Essential hypertension [I10] Coronary artery disease of port lions artery of stoney* AF (paroxysmal atrial fibrillation) ([facility]) [I48.* COPD (chronic obstructive pulmonary disease) (H* GERD without esophagitis [K21.9] Dysphagia [R13.10] Constipation [K59.00] DM type 2 (diabetes mellitus, type 2) ([facility]) [E1* 02/14/2017 Shortness of breath [R06.02] 02/14/2017 Arthritis [M19.90] More... CHF (congestive heart failure) ([facility]) [I50.9] BPPV (benign paroxysmal positional vertigo) [H8*INVALID FOR* RLS (restless legs syndrome) [G25.81] INVALID FOR* Iron deficiency concern: RE RLS [E61.1] INVALID FOR* Tubular adenoma [D36.9] INVALID FOR* Incontinence [R32] More... Gastroparesis [K31.84] INVALID FOR* Pre-op testing [Z01.818] INVALID FOR* More... Hypercapnia [R06.89] INVALID FOR* S/P coronary artery stent placement [Z95.5] INVALID FOR* Stage 3 chronic kidney disease [N18.3] INVALID FOR* Depression [F32.9] INVALID FOR* Obesity, Class II, BMI 35-39.9 [E66.9] INVALID FOR* Encounter Status:Closed by SAAD SILVESTRE on 04/13/18 PROGRESS Observed: 04/08/2018 Status: COMPLETED Source: RUSSELL 1:27 PM [facility] [place] REPOSITORY HNO ID: [id number] Author: Nanda Rodriguez) Brian Service: (none) Author Type: Physician Type: Progress Notes Filed: 04/08/2018 1:28 PM Note Text: Reviewed. Thanks. PROGRESS Observed: 04/08/2018 Status: COMPLETED Source: RUSSELL 10:39 AM [facility] REPOSITORY HNO ID: [id number] Author: Saad Allen) Larry Service: (none) Author Type: Registered Nurse Type: Progress Notes Filed: 04/13/2018 9:01 AM Note Text: TRANSITION CARE MANAGEMENT (TCM) INITIAL CONTACT Provider Action/FYI: FBS 173 One episode of SOB yesterday, didn't use rescue inhaler, none since Discussed f/u for lung mass with PCP, will repeat chest CT in 2 months Initial contact with patient post discharge, spoke to patient. Patient identified by name and . SUMMARY: -Pt discharged from [facility] on 04/07. -Follow up appointment on 04/13 with ARTURO Wilson. -Medication review done partially with patient and with [facility]. -Admitted for: Acute metabolic encephalopathy attributed to a combination of hypoglycemia as well as hypercapnia Diabetes mellitus type 2 with hypoglycemic episodes Acute hypercapnic respiratory failure secondary to PARESH, obesity hypoventilation syndrome, COPD CONCERNS: FBS this AM 173 Reports short episode of SOB yesterday, none today Instructed to use Albuterol rescue inhaler for any SOB, verbalized agreement NEW MEDICATIONS: None MEDS HELD/DISCONTINUED: None BRIEF HOSPITAL COURSE: Patient is a 63-year-old lady with multiple comorbidities admitted with changes in her level of sensorium Acute metabolic encephalopathy attributed to a combination of hypoglycemia as well as hypercapnia Diabetes mellitus type 2 with complications including hypoglycemic episodes. Patient was admitted to monitored bed with adjustment of her insulin regimen Acute hypercapnic respiratory failure secondary to combination of obstructive sleep apnea, obesity hypoventilation syndrome as well as COPD patient apparently noncompliant with her BiPAP at home. He will discussion with patient and family regarding possibility of patient being transferred to a intermediate facility patient declined. Morbid obesity with BMI of 40.1 lifestyle modification including weight loss advised Lung mass patient is scheduled for follow-up with PCP for evaluation; patient apparently has an appointment on today 04/06/2018 with patient being in the hospital she was advised to reschedule this appointment Obstructive sleep apnea; patient educated on the need to be compliant with her BiPAP at night Saad Silvestre RN [facility] Observed: 04/08/2018 Status: COMPLETED Source: RUSSELL 12:00 AM [facility] REPOSITORY Patient Outreach (FAMPWS) TAMIA PANDA ([id number]) 1955 F Date Time Provider Department 04/08/18 SAAD SILVESTRE (NINA) [facility] During your visit today, we recorded the following information about you: Saad Silvestre RN 04/13/2018 9:01 AM Addendum TRANSITION CARE MANAGEMENT (TCM) INITIAL CONTACT Provider Action/FYI: FBS 173 One episode of SOB yesterday, didn't use rescue inhaler, none since Discussed f/u for lung mass with PCP, will repeat chest CT in 2 months Initial contact with patient post discharge, spoke to patient. Patient identified by name and . SUMMARY: -Pt discharged from [facility] on 04/07. -Follow up appointment on 04/13 with ARTURO Wilson. -Medication review done partially with patient and with [facility]. -Admitted for: Acute metabolic encephalopathy attributed to a combination of hypoglycemia as well as hypercapnia Diabetes mellitus type 2 with hypoglycemic episodes Acute hypercapnic respiratory failure secondary to PARESH, obesity hypoventilation syndrome, COPD CONCERNS: FBS this AM 173 Reports short episode of SOB yesterday, none today Instructed to use Albuterol rescue inhaler for any SOB, verbalized agreement NEW MEDICATIONS: None MEDS HELD/DISCONTINUED: None BRIEF HOSPITAL COURSE: Patient is a 63-year-old lady with multiple comorbidities admitted with changes in her level of sensorium Acute metabolic encephalopathy attributed to a combination of hypoglycemia as well as hypercapnia Diabetes mellitus type 2 with complications including hypoglycemic episodes. Patient was admitted to monitored bed with adjustment of her insulin regimen Acute hypercapnic respiratory failure secondary to combination of obstructive sleep apnea, obesity hypoventilation syndrome as well as COPD patient apparently noncompliant with her BiPAP at home. He will discussion with patient and family regarding possibility of patient being transferred to a intermediate facility patient declined. Morbid obesity with BMI of 40.1 lifestyle modification including weight loss advised Lung mass patient is scheduled for follow-up with PCP for evaluation; patient apparently has an appointment on today 04/06/2018 with patient being in the hospital she was advised to reschedule this appointment Obstructive sleep apnea; patient educated on the need to be compliant with her BiPAP at night NINA Dumont MD 04/08/2018 1:28 PM Signed Reviewed. Thanks. Allergies As of Date: 04/08/2018 Noted Allergy Reaction ADHESIVE TAPE (ROSINS) 04/04/2015 5 - Intolerance Comments: Surgical tape leaves rash Irritates skin badly and blisters along with medical tape CATS 04/10/2016 14 - Other: See Comments Comments: Congested and itchy, difficulty breathing DOGS 04/10/2016 14 - Other: See Comments Comments: Congestion, sneezing, and difficulty breathing ORPHENADRINE 04/10/2016 16 - Unknown CAPSAICIN 03/02/2018 9 - Itching CIPROFLOXACIN 12/11/2011 14 - Other: See Comments Comments: Red, hot, itchy rash KEFLEX (CEPHALEXIN) 07/10/2016 4 - Hives Comments: Negative skin testing and successful completion of an oral amoxicillin challenge was completed on 03/02/2018. Cephalexin shares an almost identical R1 side chain to amoxicillin; therefore, it is unlikely that she would be at elevated risk for developing an IgE-mediated reaction (allergic/anaphylactic). If she should need this medication in the future, I would recommend giving the first dose in a supervised medical setting. If no reaction after 30 minutes, proceed with regular dosing. NIACIN 04/04/2015 16 - Unknown Comments: Pt states its niacin its niaspan REGLAN (METOCLOPRAMIDE HCL) 03/04/2017 14 - Other: See Comments Comments: Unable to sleep XANTHINES 10/18/2004 16 - Unknown ZOFRAN (ONDANSETRON HCL (PF)) 02/03/2018 9 - Itching Date Reviewed: 03/20/2018 Reviewed by: Lizette Acosta - Fully Assessed Reason for Visit: Transition Of Care [4074] Prescriptions as of 04/08/2018 Sig: OMEPRAZOLE 20 MG CAPSULE,MARIA EUGENIA* Take 1 capsule by mouth once * INSULIN GLARGINE (U-100) 100 * Inject 56 Units subcutaneousl* INSULIN LISPRO (U-200) 200 UN* Inject subcutaneously 14 unit* METOPROLOL TARTRATE 100 MG TA* TAKE 1 TABLET BY MOUTH TWICE * DULOXETINE 60 MG CAPSULE,MARIA EUGENIA* TAKE 1 CAPSULE BY MOUTH DAILY METFORMIN ER 500 MG TABLET,EX* TAKE 2 TABLETS BY MOUTH TWICE* PROMETHAZINE 25 MG TABLET Take 1 tablet by mouth every * ASPIRIN 81 MG TABLET,DELAYED * TAKE 1 TABLET BY MOUTH EVERY * CLAUDIA-KLYE 8.6 MG TABLET TAKE 1 TABLET BY MOUTH TWICE * STOOL SOFTENER 100 MG CAPSULE TAKE 1 CAPSULE BY MOUTH DAILY PSEUDOEPHEDRINE-GUAIFENESIN E* Take 1 tablet by mouth twice * ESTRADIOL 0.01% (0.1 MG/GRAM)* Apply pea-sized amount to per* COMPOUNDED PRESCRIPTION Please fit for BiPAP mask. ONETOUCH ULTRA BLUE TEST STRIP USE DIRECTED TO CHECK BLOO* ONETOUCH DELICA LANCETS 30 GA* USE TO CHECK BLOOD SUGAR 4-5 * INSULIN GLARGINE (U-100) 100 * Inject 56 units subcutaneousl* BIPAP Bilevel PAP 15/11 cmH2O with * COMPOUNDED PRESCRIPTION OCD Titration for portable ox* LYRICA 100 MG CAPSULE TAKE 1 CAPSULE BY MOUTH THREE* ULTICARE PEN NEEDLE 31 GAUGE * USE DIRECTED. TO INJECT IN* VITAMIN C 500 MG TABLET TAKE 1 TABLET BY MOUTH DAILY FERROUS GLUCONATE 324 MG (38 * TAKE 1 TABLET BY MOUTH DAILY * ISOSORBIDE MONONITRATE ER 60 * Take 1.5 tablets by mouth onc* ATORVASTATIN 40 MG TABLET TAKE 1 TABLET BY MOUTH DAILY DILTIAZEM SR 180 MG 24 HR CAP TAKE 1 CAPSULE BY MOUTH EVERY* LEVOTHYROXINE 100 MCG TABLET TAKE 1 TABLET BY MOUTH EVERY * ELIQUIS 2.5 MG TABLET TAKE 1 TABLET BY MOUTH TWICE * NITROGLYCERIN 0.4 MG SUBLINGU* DISSOLVE 1 TAB UNDER THE TONG* GLUCOSE 4 GRAM CHEWABLE TABLET Take 4 tablets by mouth as ne* OXYGEN (HOME THERAPY) Inhale 3 L/min as instructed * FLUTICASONE 50 MCG/ACTUATION * Use 2 Sprays in each nostril * FUROSEMIDE 40 MG TABLET Take 1 tablet by mouth twice * ALBUTEROL SULFATE HFA 90 MCG/* Inhale 2 Puffs as instructed * COMPOUNDED PRESCRIPTION Evaluation for diabetic shoes* INCONTINENCE PAD, LINER, DISP* 1 Device as needed (urinary i* COMPOUNDED PRESCRIPTION BLOOD PRESSURE CUFF FOR HOME * BLOOD-GLUCOSE METER KIT UAD to test blood sugar ALCOHOL SWABS UAD to clean skin before test* MUPIROCIN 2 % TOPICAL OINTMENT Apply 1 application to affect* CAPSAICIN 0.075 % TOPICAL CRE* Apply 1 application to affect* Problem List As Of Date 04/08/2018 Noted Resolved SUBJECTIVE TINNITUS [H93.19] INVALID FOR* PARESH treated with BiPAP [G47.33] INVALID FOR* Hyperlipidemia [E78.5] INVALID FOR* Coronary disease [I25.10] INVALID FOR* Diabetes mellitus, type II ([facility]) [E11.9] INVALID FOR* Morbid obesity ([facility]) [E66.01] Hypothyroidism [E03.9] Anxiety [F41.9] Sleep apnea [G47.30] 02/14/2017 Essential hypertension [I10] Coronary artery disease of port lions artery of stoney* AF (paroxysmal atrial fibrillation) ([facility]) [I48.* COPD (chronic obstructive pulmonary disease) (H* GERD without esophagitis [K21.9] Dysphagia [R13.10] Constipation [K59.00] DM type 2 (diabetes mellitus, type 2) ([facility]) [E1* 02/14/2017 Shortness of breath [R06.02] 02/14/2017 Arthritis [M19.90] More... CHF (congestive heart failure) ([facility]) [I50.9] BPPV (benign paroxysmal positional vertigo) [H8*INVALID FOR* RLS (restless legs syndrome) [G25.81] INVALID FOR* Iron deficiency concern: RE RLS [E61.1] INVALID FOR* Tubular adenoma [D36.9] INVALID FOR* Incontinence [R32] More... Gastroparesis [K31.84] INVALID FOR* Pre-op testing [Z01.818] INVALID FOR* More... Hypercapnia [R06.89] INVALID FOR* S/P coronary artery stent placement [Z95.5] INVALID FOR* Stage 3 chronic kidney disease [N18.3] INVALID FOR* Depression [F32.9] INVALID FOR* Obesity, Class II, BMI 35-39.9 [E66.9] INVALID FOR* Encounter Status:Closed by SAAD SILVESTRE on 04/08/18 12 LEAD ELECTROCARDIOGRAM Observed: 04/07/2018 Status: F Source: MEARS 1:45 PM [facility] REPOSITORY [facility] Cardiovascular Services [facility] [place] [place] [address] 12 Lead EKG 04/04/18 1543 MR#: [id number] Acct: [id number] Name: TAMIA PANDA Rep #: [id number] : 1955 63 From: Bart Blas MD Attending Dr: Yvon Hogan MD Status: DIS IN Ordering Dr: Keshawn Miguel MD Date: 04/04/18 Location: [facility] Sex: F C Admitted: 04/04/18 Test Reason : SOB Blood Pressure : / mmHG Vent. Rate : 064 BPM Atrial Rate : 061 BPM P-R Int : 000 ms QRS Dur : 080 ms QT Int : 452 ms P-R-T Axes : 000 -12 095 degrees QTc Int : 466 ms Atrial fibrillation Abnormal ECG Confirmed by BART BLAS MD ([id number]), senior technical editor SHYANNE TERRAZAS ([id number]) on 04/07/2018 1:44:58 PM Referred By: NICA Confirmed By:BART BLAS MD 04/07/18 1345 Date Bart Blas MD CC: Bhupendra Oliveira MD; Yvon Hogan MD; Keshawn Miguel MD Signed PROGRESS Observed: 04/07/2018 Status: COMPLETED Source: RUSSELL 11:46 AM [facility] REPOSITORY HNO ID: [id number] Author: Nanda Rodriguez) Brian Service: (none) Author Type: Physician Type: Progress Notes Filed: 04/07/2018 11:46 AM Note Text: Reviewed and agree. TCM? PROGRESS Observed: 04/07/2018 Status: COMPLETED Source: RUSSELL 10:35 AM [facility] REPOSITORY HNO ID: [id number] Author: Saad Allen) Larry Service: (none) Author Type: Registered Nurse Type: Progress Notes Filed: 04/07/2018 10:39 AM Note Text: PRIMARY CARE COORDINATION QUICK NOTE Provider Action/FYI Patient is being discharged today from [facility] She is scheduled for sleep study on 04/13 and [id number] wrote down date and time. Patient identified by name and date . TC from JOSEFINA Cook at [facility], states sleep study had been cancelled because of [facility] computer issues and pt never responded to messages to reschedule. Patient is scheduled for sleep study on 04/13 and [id number] wrote down date and time. Discussed it is imperative for pt to get the sleep study to restart BiPAP so we can prevent further hospital readmissions, verbalized agreement. Saad Silvestre RN April 07, 2018 10:39 AM DISCHARGE SUMMARY Observed: 04/07/2018 Status: F Source: MEARS 8:50 AM [facility] REPOSITORY [facility] Medical Records Department [address] [place] [address] Discharge Summary 04/07/18 0849 MR#: [id number] Acct: [id number] Name: TAMIA PANDA Rep #: [id number] : 1955 63 From: Yvon Hogan MD PCP: Bhupendra Oliveira MD Status: ADM IN Y Location: [place] [address] Discharge Date and Diagnosis - Problem List Patient Problems: Active and Suspected Problems Hypoglycemia (Acute) Date of Admission: 04/04/18 Date of Discharge: 04/07/18 - Primary Discharge Diagnosis Active and Suspected Problems Hypoglycemia (Acute) - Secondary Discharge Diagnosis Chronic Problems Diabetes mellitus type 2 in obese (Chronic) Coronary arteriosclerosis (Chronic) cath 05/2015 mild-moderate disease medical therapy recommended Hypothyroidism (Chronic) Hyperlipemia (Chronic) GERD (gastroesophageal reflux disease) (Chronic) Hypertension (Chronic) COPD (chronic obstructive pulmonary disease) (Chronic) Chronic respiratory insufficiency (Chronic) On home oxygen at night S/P PTCA (percutaneous transluminal coronary angioplasty) (Chronic) PARESH (obstructive sleep apnea) (Chronic) Hospital Course and Treatment Imaging Results: Clinical Impression(s) from Imaging Studies Brain CT 04/04/18 15:36 IMPRESSION: 1. Chronic involutional changes of the brain. 2. No CT evidence of acute intracranial hemorrhage. Electronically Signed: Jelly Terrazas MD at 16:56 EDT , Service support , Chest X-Ray 04/04/18 16:05 IMPRESSION: Cardiomegaly and mild pulmonary congestion. Electronically Signed: Jelly Terrazas MD at 17:01 EDT , Service support , Operations: None Summary of Care Provided: Patient is a 63-year-old lady with multiple comorbidities admitted with changes in her level of sensorium 1. Acute metabolic encephalopathy attributed to a combination of hypoglycemia as well as hypercapnia 2. 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 Patient was admitted to monitored bed with adjustment of her insulin regimen 3. Acute hypercapnic respiratory failure secondary to combination of obstructive sleep apnea, obesity hypoventilation syndrome as well as COPD patient apparently noncompliant with her BiPAP at home. He will discussion with patient and family regarding possibility of patient being transferred to a intermediate facility patient declined. 4. Paroxysmal A. fib rate controlled: Patient is on apixaban for systemic anticoagulation 5. History of recurrent UTI patient was asymptomatic on admission 6. Morbid obesity with BMI of 40.1 lifestyle modification including weight loss advised 7. Lung mass patient is scheduled for follow-up with PCP for evaluation; patient apparently has an appointment on today 04/06/2018 with patient being in the hospital she was advised to reschedule this appointment 8. Hypothyroidism-patient is on levothyroxine home dose continued 9. Hypertension-blood pressure controlled, home medications continued with dose adjustment as needed 10. CAD stable 11. Obstructive sleep apnea; patient educated on the need to be compliant with her BiPAP at night 12. DVT prophylaxis apixaban 10. Hypokalemia corrected for protocol Discharge Diet: 1800 Calorie Control Diet Discharge Activity: Return to Normal Activity, May not drive while taking narcotic pain medications. Home Medications: Medications to take at Discharge Albuterol Inhaler [Ventolin Hfa] 2 puff INHALATION Q4H PRN PRN 02/03/18 Apixaban [Eliquis] 2.5 mg PO BID 02/03/18 Ascorbic Acid [Vitamin C] 500 mg PO DAILY@0800 02/03/18 Aspirin [Aspirin, Baby] 81 mg PO DAILY@0800 02/03/18 Atorvastatin Calcium [Lipitor] 40 mg PO QHS 02/03/18 Capsaicin 1 dose TP 4X/DAY 02/03/18 Diltiazem HCl [Cartia Xt] 180 mg PO DAILY 02/03/18 Docusate Sodium [Stool Softener] 100 mg PO DAILY PRN PRN 02/03/18 Duloxetine Hcl [Cymbalta] 60 mg PO DAILY 02/03/18 Estradiol 1 dose VG MOWEFR 02/03/18 Ferrous Gluconate 325 mg PO DAILY@0800 02/03/18 Fluticasone 0.05% [Flonase Nasal Cambria] 2 spray NASAL DAILY 02/03/18 Furosemide [Lasix] 40 mg PO BIDLX 02/03/18 Insulin Glargine,Hum.rec.anlog [Lantus] 56 unit SQ BID 02/03/18 Insulin Lispro [Humalog KwikPen] 22 unit SQ LUNCH 02/03/18 Insulin Lispro [Humalog KwikPen] 24 unit SQ DINNER 02/03/18 Insulin Lispro [Humalog] 14 unit SQ BREAKFAST 02/03/18 Isosorbide Mononitrate [Imdur] 90 mg PO DAILY 02/03/18 Levothyroxine [Synthroid] 100 mcg PO DAILY 02/03/18 Metformin HCl [Metformin HCl ER] 1,000 mg PO BID 02/03/18 Pantoprazole Sodium [Protonix] 20 mg PO BID 02/03/18 Pregabalin [Lyrica] 100 mg PO TID 02/03/18 Sennosides [Claudia-Kyle] 8.6 mg PO BID 02/03/18 proMETHazine tablet [Phenergan tablet] 25 mg PO Q6H PRN PRN 02/03/18 Glucerna Shake 120 ml PO 4X/DAY 04/05/18 Guaifenesin/Dextromethorphan [Mucinex Dm ER 1,200-60 mg Tab] 1 each PO BID 04/05/18 Ipratropium/Albuterol Sulfate [Duoneb] 3 ml INHALATION Q4H.RT 04/05/18 Metoprolol Tartrate [Lopressor (beta sudhakar)] 100 mg PO BID 04/05/18 Primary Care Physician: Bhupendra Oliveira MD [Primary Care Provider] - Please follow up with your Primary Care Physician in: in 2- 3 days Please Follow Up With: [facility] for sleep study Disposition: Home Minutes spent on discharge:: 35 Patient Condition:: Stable Medical Necessity - Tobacco Use Smoking Status: Former smoker Tobacco Use: Non-smoker Meaningful Use Info Meaningful Use Diagnoses (Choose all that apply): None applicable Code Visit Inpatient E AND M: 06023 Disch Hosp 04/07/18 0850 <Electronically signed by Yvon Hogan MD> Date Yovn Hogan MD Cosigner Signature (if applicable): Date CC: Bhupendra Oliveira MD; Yvon Hogan MD Signed DISCHARGE INSTRUCTION Observed: 04/07/2018 Status: F Source: KINJAL 8:48 AM [facility] REPOSITORY [facility] Medical Records Department [address] [place] [address] Instructions for Home/Discharge Instructions 04/07/18 0844 MR#: [id number] Acct: [id number] Name: HENRYTAMIA J Rep #: [id number] : 1955 63 From: Yvon Hogan MD PCP: Bhupendra Oliveira MD Status: ADM IN - Discharge Diagnoses Current Active Problems: Current Active and Chronic Problems Hypoglycemia (Acute) You will use the following diet at home:: Calorie/Carbohydrate Controlled (specify 1200, 1400, etc) - 1800 Your food should be the consistency of: Regular Discharge Activity: Return to Normal Activity, May not drive while taking narcotic pain medications. Allergies/Adverse Reactions: Allergies ciprofloxacin [From Cipro] Allergy (Verified 02/07/18 19:42) Hives latex Allergy (Verified 02/07/18 19:42) matos me niacin [From Niaspan Extended-Release] Allergy (Verified 02/07/18 19:42) Hives ondansetron [From Zofran] Allergy (Verified 02/07/18 19:42) Unknown Xanthines Allergy (Verified 02/07/18 19:42) Unknown Penicillins Adverse Reaction (Mild, Verified 02/07/18 19:42) Itching/redness orphenadrine citrate [From Norgesic] Adverse Reaction (Verified 02/07/18 19:42) groggy medical tape Adverse Reaction (Uncoded 02/07/18 19:42) blisters Medications to take at Discharge Albuterol Inhaler [Ventolin Hfa] 2 puff INHALATION Q4H PRN PRN 02/03/18 Apixaban [Eliquis] 2.5 mg PO BID 02/03/18 Ascorbic Acid [Vitamin C] 500 mg PO DAILY@0800 02/03/18 Aspirin [Aspirin, Baby] 81 mg PO DAILY@0800 02/03/18 Atorvastatin Calcium [Lipitor] 40 mg PO QHS 02/03/18 Capsaicin 1 dose TP 4X/DAY 02/03/18 Diltiazem HCl [Cartia Xt] 180 mg PO DAILY 02/03/18 Docusate Sodium [Stool Softener] 100 mg PO DAILY PRN PRN 02/03/18 Duloxetine Hcl [Cymbalta] 60 mg PO DAILY 02/03/18 Estradiol 1 dose VG MOWEFR 02/03/18 Ferrous Gluconate 325 mg PO DAILY@0800 02/03/18 Fluticasone 0.05% [Flonase Nasal Cambria] 2 spray NASAL DAILY 02/03/18 Furosemide [Lasix] 40 mg PO BIDLX 02/03/18 Insulin Glargine,Hum.rec.anlog [Lantus] 56 unit SQ BID 02/03/18 Insulin Lispro [Humalog KwikPen] 22 unit SQ LUNCH 02/03/18 Insulin Lispro [Humalog KwikPen] 24 unit SQ DINNER 02/03/18 Insulin Lispro [Humalog] 14 unit SQ BREAKFAST 02/03/18 Isosorbide Mononitrate [Imdur] 90 mg PO DAILY 02/03/18 Levothyroxine [Synthroid] 100 mcg PO DAILY 02/03/18 Metformin HCl [Metformin HCl ER] 1,000 mg PO BID 02/03/18 Pantoprazole Sodium [Protonix] 20 mg PO BID 02/03/18 Pregabalin [Lyrica] 100 mg PO TID 02/03/18 Sennosides [Claudia-Kyle] 8.6 mg PO BID 02/03/18 proMETHazine tablet [Phenergan tablet] 25 mg PO Q6H PRN PRN 02/03/18 Glucerna Shake 120 ml PO 4X/DAY 04/05/18 Guaifenesin/Dextromethorphan [Mucinex Dm ER 1,200-60 mg Tab] 1 each PO BID 04/05/18 Ipratropium/Albuterol Sulfate [Duoneb] 3 ml INHALATION Q4H.RT 04/05/18 Metoprolol Tartrate [Lopressor (beta sudhakar)] 100 mg PO BID 04/05/18 Primary Care Physician: Bhupendra Oliveira MD [Primary Care Provider] - Please follow up with your Primary Care Physician in: in 2- 3 days Test Results: Test results from this visit will be discussed in further detail at your follow-up appointment, if applicable. Please Follow Up With: [facility] for sleep study Proposed Discharge Date: 04/07/18 04/07/18 0848 <Electronically signed by Yvon Hogan MD> Date Yvon Hogan MD CC: Bhupendra Oliveira MD BEDSIDE GLUCOSE Collected: 04/07/2018 Status: F Source: KINJAL 6:47 AM [facility] REPOSITORY TYPE CODE TESTS RESULT OUT OF REFERENCE UNITS RANGE LAB L501.080 70-110 mg/dL High BEDSIDE GLU 146 Result Comment: MANAGEMENT OF PATIENT CARE PER NURSING PROTOCOL Performed By: #### L501.080 #### [facility] Point of Care [address] [place] [address] LMTOUTREACH Observed: 04/07/2018 Status: COMPLETED Source: RUSSELL 12:00 AM [facility] REPOSITORY Patient Outreach (FAMPWS) TAMIA PANDA ([id number]) 1955 F Date Time Provider Department 04/07/18 SAAD SILVESTRE (RN) [facility] During your visit today, we recorded the following information about you: Saad Silvestre RN 04/07/2018 10:39 AM Signed PRIMARY CARE COORDINATION QUICK NOTE Provider Action/FYI Patient is being discharged today from [facility] She is scheduled for sleep study on 04/13 and [id number] wrote down date and time. Patient identified by name and date . TC from JOSEFINA Cook at [facility], states sleep study had been cancelled because of [facility] computer issues and pt never responded to messages to reschedule. Patient is scheduled for sleep study on 04/13 and [id number] wrote down date and time. Discussed it is imperative for pt to get the sleep study to restart BiPAP so we can prevent further hospital readmissions, verbalized agreement. Saad Silvestre RN April 07, 2018 10:39 AM Nanda Oliveira MD 04/07/2018 11:46 AM Signed Reviewed and agree. TCM? Allergies As of Date: 04/07/2018 Noted Allergy Reaction ADHESIVE TAPE (ROSINS) 04/04/2015 5 - Intolerance Comments: Surgical tape leaves rash Irritates skin badly and blisters along with medical tape CATS 04/10/2016 14 - Other: See Comments Comments: Congested and itchy, difficulty breathing DOGS 04/10/2016 14 - Other: See Comments Comments: Congestion, sneezing, and difficulty breathing ORPHENADRINE 04/10/2016 16 - Unknown CAPSAICIN 03/02/2018 9 - Itching CIPROFLOXACIN 12/11/2011 14 - Other: See Comments Comments: Red, hot, itchy rash KEFLEX (CEPHALEXIN) 07/10/2016 4 - Hives Comments: Negative skin testing and successful completion of an oral amoxicillin challenge was completed on 03/02/2018. Cephalexin shares an almost identical R1 side chain to amoxicillin; therefore, it is unlikely that she would be at elevated risk for developing an IgE-mediated reaction (allergic/anaphylactic). If she should need this medication in the future, I would recommend giving the first dose in a supervised medical setting. If no reaction after 30 minutes, proceed with regular dosing. NIACIN 04/04/2015 16 - Unknown Comments: Pt states its niacin its niaspan REGLAN (METOCLOPRAMIDE HCL) 03/04/2017 14 - Other: See Comments Comments: Unable to sleep XANTHINES 10/18/2004 16 - Unknown ZOFRAN (ONDANSETRON HCL (PF)) 02/03/2018 9 - Itching Date Reviewed: 03/20/2018 Reviewed by: Lizette Acosta - Fully Assessed Reason for Visit: Transition Of Care [4074] Prescriptions as of 04/07/2018 Sig: OMEPRAZOLE 20 MG CAPSULE,MARIA EUGENIA* Take 1 capsule by mouth once * INSULIN GLARGINE (U-100) 100 * Inject 56 Units subcutaneousl* INSULIN LISPRO (U-200) 200 UN* Inject subcutaneously 14 unit* METOPROLOL TARTRATE 100 MG TA* TAKE 1 TABLET BY MOUTH TWICE * DULOXETINE 60 MG CAPSULE,MARIA EUGENIA* TAKE 1 CAPSULE BY MOUTH DAILY METFORMIN ER 500 MG TABLET,EX* TAKE 2 TABLETS BY MOUTH TWICE* PROMETHAZINE 25 MG TABLET Take 1 tablet by mouth every * ASPIRIN 81 MG TABLET,DELAYED * TAKE 1 TABLET BY MOUTH EVERY * CLAUDIA-KYLE 8.6 MG TABLET TAKE 1 TABLET BY MOUTH TWICE * STOOL SOFTENER 100 MG CAPSULE TAKE 1 CAPSULE BY MOUTH DAILY PSEUDOEPHEDRINE-GUAIFENESIN E* Take 1 tablet by mouth twice * ESTRADIOL 0.01% (0.1 MG/GRAM)* Apply pea-sized amount to per* COMPOUNDED PRESCRIPTION Please fit for BiPAP mask. ONETOUCH ULTRA BLUE TEST STRIP USE DIRECTED TO CHECK BLOO* ONETOUCH DELICA LANCETS 30 GA* USE TO CHECK BLOOD SUGAR 4-5 * INSULIN GLARGINE (U-100) 100 * Inject 56 units subcutaneousl* BIPAP Bilevel PAP 15/11 cmH2O with * COMPOUNDED PRESCRIPTION OCD Titration for portable ox* MUPIROCIN 2 % TOPICAL OINTMENT Apply 1 application to affect* LYRICA 100 MG CAPSULE TAKE 1 CAPSULE BY MOUTH THREE* CAPSAICIN 0.075 % TOPICAL CRE* Apply 1 application to affect* ULTICARE PEN NEEDLE 31 GAUGE * USE DIRECTED. TO INJECT IN* VITAMIN C 500 MG TABLET TAKE 1 TABLET BY MOUTH DAILY FERROUS GLUCONATE 324 MG (38 * TAKE 1 TABLET BY MOUTH DAILY * ISOSORBIDE MONONITRATE ER 60 * Take 1.5 tablets by mouth onc* ATORVASTATIN 40 MG TABLET TAKE 1 TABLET BY MOUTH DAILY DILTIAZEM SR 180 MG 24 HR CAP TAKE 1 CAPSULE BY MOUTH EVERY* LEVOTHYROXINE 100 MCG TABLET TAKE 1 TABLET BY MOUTH EVERY * ELIQUIS 2.5 MG TABLET TAKE 1 TABLET BY MOUTH TWICE * NITROGLYCERIN 0.4 MG SUBLINGU* DISSOLVE 1 TAB UNDER THE TONG* GLUCOSE 4 GRAM CHEWABLE TABLET Take 4 tablets by mouth as ne* OXYGEN (HOME THERAPY) Inhale 3 L/min as instructed * FLUTICASONE 50 MCG/ACTUATION * Use 2 Sprays in each nostril * FUROSEMIDE 40 MG TABLET Take 1 tablet by mouth twice * ALBUTEROL SULFATE HFA 90 MCG/* Inhale 2 Puffs as instructed * COMPOUNDED PRESCRIPTION Evaluation for diabetic shoes* INCONTINENCE PAD, LINER, DISP* 1 Device as needed (urinary i* COMPOUNDED PRESCRIPTION BLOOD PRESSURE CUFF FOR HOME * BLOOD-GLUCOSE METER KIT UAD to test blood sugar ALCOHOL SWABS UAD to clean skin before test* Problem List As Of Date 04/07/2018 Noted Resolved SUBJECTIVE TINNITUS [H93.19] INVALID FOR* PARESH treated with BiPAP [G47.33] INVALID FOR* Hyperlipidemia [E78.5] INVALID FOR* Coronary disease [I25.10] INVALID FOR* Diabetes mellitus, type II (HCC) [E11.9] INVALID FOR* Morbid obesity (HCC) [E66.01] Hypothyroidism [E03.9] Anxiety [F41.9] Sleep apnea [G47.30] 02/14/2017 Essential hypertension [I10] Coronary artery disease of [place] artery of stoney* AF (paroxysmal atrial fibrillation) (HCC) [I48.* COPD (chronic obstructive pulmonary disease) (H* GERD without esophagitis [K21.9] Dysphagia [R13.10] Constipation [K59.00] DM type 2 (diabetes mellitus, type 2) ([facility]) [E1* 02/14/2017 Shortness of breath [R06.02] 02/14/2017 Arthritis [M19.90] More... CHF (congestive heart failure) ([facility]) [I50.9] BPPV (benign paroxysmal positional vertigo) [H8*INVALID FOR* RLS (restless legs syndrome) [G25.81] INVALID FOR* Iron deficiency concern: RE RLS [E61.1] INVALID FOR* Tubular adenoma [D36.9] INVALID FOR* Incontinence [R32] More... Gastroparesis [K31.84] INVALID FOR* Pre-op testing [Z01.818] INVALID FOR* More... Hypercapnia [R06.89] INVALID FOR* S/P coronary artery stent placement [Z95.5] INVALID FOR* Stage 3 chronic kidney disease [N18.3] INVALID FOR* Depression [F32.9] INVALID FOR* Obesity, Class II, BMI 35-39.9 [E66.9] INVALID FOR* Encounter Status:Closed by SAAD SILVESTRE on 04/07/18 BEDSIDE GLUCOSE Collected: 04/06/2018 Status: F Source: MEARS 9:16 PM [facility] REPOSITORY TYPE CODE TESTS RESULT OUT OF REFERENCE UNITS RANGE LAB L501.080 70-110 mg/dL High BEDSIDE GLU 114 Result Comment: MANAGEMENT OF PATIENT CARE PER NURSING PROTOCOL Performed By: #### L501.080 #### [facility] Point of Care [address] [place] [address] BEDSIDE GLUCOSE Collected: 04/06/2018 Status: F Source: KINJAL 5:03 PM [facility] REPOSITORY TYPE CODE TESTS RESULT OUT OF REFERENCE UNITS RANGE LAB L501.080 70-110 mg/dL High BEDSIDE GLU 120 Result Comment: Orders Followed Insulin Given MANAGEMENT OF PATIENT CARE PER NURSING PROTOCOL Performed By: #### L501.080 #### [facility] Point of Care [address] [place], [place] [id number] PROGRESS Observed: 04/06/2018 Status: COMPLETED Source: RUSSELL 2:51 PM [facility] [place] REPOSITORY HNO ID: [id number] Author: Christyoko Oliveira Service: (none) Author Type: Physician Type: Progress Notes Filed: 04/06/2018 2:51 PM Note Text: Reviewed. Thanks! PROGRESS Observed: 04/06/2018 Status: COMPLETED Source: RUSSELL 2:38 PM [facility] REPOSITORY HNO ID: [id number] Author: Saad Allen) Larry Service: (none) Author Type: Registered Nurse Type: Progress Notes Filed: 04/06/2018 2:46 PM Note Text: PRIMARY CARE COORDINATION FOLLOW-UP NOTE Provider Action/FYI TC to JOSEFINA Cook at [facility], informed pt cannot resume wearing BiPAP at home until she has a sleep study. [facility] had cancelled her last scheduled sleep study. Asked if CM can make sure pt has sleep study scheduled before pt leaves the hospital. Discussed if pt doesn't start wearing BiPAP at home she will continue to have re-admissions to their hospital. Verbalized understanding and agreement. Patient identified by name and date of . YES Spoke to NINA Cookhand sign writer at [facility] Summary: Pt currently inpatient at [facility] with mental status alteration, acute on chronic respiratory failure with hypoxia and hypercapnia and hypoglycemia. Cleaning Supervisor plan for next outreach: Will follow up at hospital discharge Signature Saad Silvestre RN April 06, 2018 BEDSIDE GLUCOSE Collected: 04/06/2018 Status: F Source: KINJAL 11:33 AM [facility] REPOSITORY TYPE CODE TESTS RESULT OUT OF REFERENCE UNITS RANGE LAB L501.080 70-110 mg/dL High BEDSIDE GLU 233 Result Comment: Orders Followed Insulin Given MANAGEMENT OF PATIENT CARE PER NURSING PROTOCOL Performed By: #### L501.080 #### [facility] Point of Care [facility] [address] [address] BASIC METABOLIC Collected: 04/06/2018 Status: F Source: KINJAL PROFILE (BMP) 10:25 AM [facility] REPOSITORY Order Comment: PT EATING BREAKFAST WILL RETURN FOR DRAW. TYPE CODE TESTS RESULT OUT OF RANGE REFERENCE UNITS LAB L501.0100 74-106 mg/dL High GLU 187 Result Comment: Fasting Glucose result greater than or equal to 126 mg/dL suggests DIABETES MELLITUS per A.D.A. criteria. Please note revised GLUCOSE reference range effective 2017. LAB L501.1000 7-18 mg/dL Normal BUN 10 LAB L501.1100 0.55-1.02 mg/dL Normal CREAT,SERUM 0.70 Result Comment: The validity of the calculated GFR AND GFRAA in patients over 70 years has not been determined. Clinical correlation is essential. LAB L501.1110 >60 mL/min Normal EST GFR 89 Result Comment: Non- GFR Calc LAB L501.1115 >60 mL/min Normal EST GFR - AA 108 Result Comment: GFR Calc LAB L501.1255 ml/min Normal Estimated CRCL 65.06 LAB L501.1300 10-20 RATIO Normal BUN/CRE 14.2 LAB L501.2200 8.5-10 mg/dL Normal .1 CA 8.9 LAB L501.5300 136-14 mmol/L Normal 5 NA 142 LAB L501.5600 3.5-5. mmol/L Normal 1 K 3.7 LAB L501.5900 98-107 mmol/L Normal CL 105 LAB L501.6100 21.0-3 mmol/L Normal 2.0 CO2 31.0 LAB L501.6200 5-15 Normal GAP 6 Performed By: #### L500.2500 #### [facility] [address] [place], [place], [id number] BEDSIDE GLUCOSE Collected: 04/06/2018 Status: F Source: MEARS 6:59 AM [facility] REPOSITORY TYPE CODE TESTS RESULT OUT OF REFERENCE UNITS RANGE LAB L501.080 70-110 mg/dL High BEDSIDE GLU 127 Result Comment: MANAGEMENT OF PATIENT CARE PER NURSING PROTOCOL Performed By: #### L501.080 #### [facility] Point of Care [address] [facility] [place] [address] CNPTOUTREACH Observed: 04/06/2018 Status: COMPLETED Source: RUSSELL 12:00 AM [facility] REPOSITORY Patient Outreach (FAMPWS) TAMIA PANDA ([id number]) 1955 F Date Time Provider Department 04/06/18 SAAD SILVESTRE (RN) FAMPWS During your visit today, we recorded the following information about you: Saad Silvestre RN 04/06/2018 2:46 PM Signed PRIMARY CARE COORDINATION FOLLOW-UP NOTE Provider Action/FYI TC to JOSEFINA Cook at [facility], informed pt cannot resume wearing BiPAP at home until she has a sleep study. [facility] had cancelled her last scheduled sleep study. Asked if CM can make sure pt has sleep study scheduled before pt leaves the hospital. Discussed if pt doesn't start wearing BiPAP at home she will continue to have re-admissions to their hospital. Verbalized understanding and agreement. Patient identified by name and date of . YES Spoke to NINA Cookhand sign writer at [facility] Summary: Pt currently inpatient at [facility] with mental status alteration, acute on chronic respiratory failure with hypoxia and hypercapnia and hypoglycemia. Cleaning Supervisor plan for next outreach: Will follow up at hospital discharge Signature Saad Silvestre RN April 06, 2018 Nanda Oliveira MD 04/06/2018 2:51 PM Signed Reviewed. Thanks! Allergies As of Date: 04/06/2018 Noted Allergy Reaction ADHESIVE TAPE (ROSINS) 04/04/2015 5 - Intolerance Comments: Surgical tape leaves rash Irritates skin badly and blisters along with medical tape CATS 04/10/2016 14 - Other: See Comments Comments: Congested and itchy, difficulty breathing DOGS 04/10/2016 14 - Other: See Comments Comments: Congestion, sneezing, and difficulty breathing ORPHENADRINE 04/10/2016 16 - Unknown CAPSAICIN 03/02/2018 9 - Itching CIPROFLOXACIN 12/11/2011 14 - Other: See Comments Comments: Red, hot, itchy rash KEFLEX (CEPHALEXIN) 07/10/2016 4 - Hives Comments: Negative skin testing and successful completion of an oral amoxicillin challenge was completed on 03/02/2018. Cephalexin shares an almost identical R1 side chain to amoxicillin; therefore, it is unlikely that she would be at elevated risk for developing an IgE-mediated reaction (allergic/anaphylactic). If she should need this medication in the future, I would recommend giving the first dose in a supervised medical setting. If no reaction after 30 minutes, proceed with regular dosing. NIACIN 04/04/2015 16 - Unknown Comments: Pt states its niacin its niaspan REGLAN (METOCLOPRAMIDE HCL) 03/04/2017 14 - Other: See Comments Comments: Unable to sleep XANTHINES 10/18/2004 16 - Unknown ZOFRAN (ONDANSETRON HCL (PF)) 02/03/2018 9 - Itching Date Reviewed: 03/20/2018 Reviewed by: Lizette Acosta - Fully Assessed Reason for Visit: [facility] Follow Up [3618] Cmt: Inpatient [facility] Prescriptions as of 04/06/2018 Sig: OMEPRAZOLE 20 MG CAPSULE,MARIA EUGENIA* Take 1 capsule by mouth once * INSULIN GLARGINE (U-100) 100 * Inject 56 Units subcutaneousl* INSULIN LISPRO (U-200) 200 UN* Inject subcutaneously 14 unit* METOPROLOL TARTRATE 100 MG TA* TAKE 1 TABLET BY MOUTH TWICE * DULOXETINE 60 MG CAPSULE,MARIA EUGENIA* TAKE 1 CAPSULE BY MOUTH DAILY METFORMIN ER 500 MG TABLET,EX* TAKE 2 TABLETS BY MOUTH TWICE* PROMETHAZINE 25 MG TABLET Take 1 tablet by mouth every * ASPIRIN 81 MG TABLET,DELAYED * TAKE 1 TABLET BY MOUTH EVERY * CLAUDIA-KYLE 8.6 MG TABLET TAKE 1 TABLET BY MOUTH TWICE * STOOL SOFTENER 100 MG CAPSULE TAKE 1 CAPSULE BY MOUTH DAILY PSEUDOEPHEDRINE-GUAIFENESIN E* Take 1 tablet by mouth twice * ESTRADIOL 0.01% (0.1 MG/GRAM)* Apply pea-sized amount to per* COMPOUNDED PRESCRIPTION Please fit for BiPAP mask. ONETOUCH ULTRA BLUE TEST STRIP USE DIRECTED TO CHECK BLOO* ONETOUCH DELICA LANCETS 30 GA* USE TO CHECK BLOOD SUGAR 4-5 * INSULIN GLARGINE (U-100) 100 * Inject 56 units subcutaneousl* BIPAP Bilevel PAP 15/11 cmH2O with * COMPOUNDED PRESCRIPTION OCD Titration for portable ox* MUPIROCIN 2 % TOPICAL OINTMENT Apply 1 application to affect* LYRICA 100 MG CAPSULE TAKE 1 CAPSULE BY MOUTH THREE* CAPSAICIN 0.075 % TOPICAL CRE* Apply 1 application to affect* ULTICARE PEN NEEDLE 31 GAUGE * USE DIRECTED. TO INJECT IN* VITAMIN C 500 MG TABLET TAKE 1 TABLET BY MOUTH DAILY FERROUS GLUCONATE 324 MG (38 * TAKE 1 TABLET BY MOUTH DAILY * ISOSORBIDE MONONITRATE ER 60 * Take 1.5 tablets by mouth onc* ATORVASTATIN 40 MG TABLET TAKE 1 TABLET BY MOUTH DAILY DILTIAZEM SR 180 MG 24 HR CAP TAKE 1 CAPSULE BY MOUTH EVERY* LEVOTHYROXINE 100 MCG TABLET TAKE 1 TABLET BY MOUTH EVERY * ELIQUIS 2.5 MG TABLET TAKE 1 TABLET BY MOUTH TWICE * NITROGLYCERIN 0.4 MG SUBLINGU* DISSOLVE 1 TAB UNDER THE TONG* GLUCOSE 4 GRAM CHEWABLE TABLET Take 4 tablets by mouth as ne* OXYGEN (HOME THERAPY) Inhale 3 L/min as instructed * FLUTICASONE 50 MCG/ACTUATION * Use 2 Sprays in each nostril * FUROSEMIDE 40 MG TABLET Take 1 tablet by mouth twice * ALBUTEROL SULFATE HFA 90 MCG/* Inhale 2 Puffs as instructed * COMPOUNDED PRESCRIPTION Evaluation for diabetic shoes* INCONTINENCE PAD, LINER, DISP* 1 Device as needed (urinary i* COMPOUNDED PRESCRIPTION BLOOD PRESSURE CUFF FOR HOME * BLOOD-GLUCOSE METER KIT UAD to test blood sugar ALCOHOL SWABS UAD to clean skin before test* Problem List As Of Date 04/06/2018 Noted Resolved SUBJECTIVE TINNITUS [H93.19] INVALID FOR* PARESH treated with BiPAP [G47.33] INVALID FOR* Hyperlipidemia [E78.5] INVALID FOR* Coronary disease [I25.10] INVALID FOR* Diabetes mellitus, type II ([facility]) [E11.9] INVALID FOR* Morbid obesity ([facility]) [E66.01] Hypothyroidism [E03.9] Anxiety [F41.9] Sleep apnea [G47.30] 02/14/2017 Essential hypertension [I10] Coronary artery disease of [place] artery of stoney* AF (paroxysmal atrial fibrillation) ([facility]) [I48.* COPD (chronic obstructive pulmonary disease) (H* GERD without esophagitis [K21.9] Dysphagia [R13.10] Constipation [K59.00] DM type 2 (diabetes mellitus, type 2) ([facility]) [E1* 02/14/2017 Shortness of breath [R06.02] 02/14/2017 Arthritis [M19.90] More... CHF (congestive heart failure) ([facility]) [I50.9] BPPV (benign paroxysmal positional vertigo) [H8*INVALID FOR* RLS (restless legs syndrome) [G25.81] INVALID FOR* Iron deficiency concern: RE RLS [E61.1] INVALID FOR* Tubular adenoma [D36.9] INVALID FOR* Incontinence [R32] More... Gastroparesis [K31.84] INVALID FOR* Pre-op testing [Z01.818] INVALID FOR* More... Hypercapnia [R06.89] INVALID FOR* S/P coronary artery stent placement [Z95.5] INVALID FOR* Stage 3 chronic kidney disease [N18.3] INVALID FOR* Depression [F32.9] INVALID FOR* Obesity, Class II, BMI 35-39.9 [E66.9] INVALID FOR* Encounter Status:Closed by SAAD SILVESTRE on 04/06/18 BEDSIDE GLUCOSE Collected: 04/05/2018 Status: F Source: KINJAL 10:16 PM [facility] REPOSITORY TYPE CODE TESTS RESULT OUT OF REFERENCE UNITS RANGE LAB L501.080 70-110 mg/dL High BEDSIDE GLU 111 Result Comment: MANAGEMENT OF PATIENT CARE PER NURSING PROTOCOL Performed By: #### L501.080 #### [facility] Point of Care [address] [place] [address] BEDSIDE GLUCOSE Collected: 04/05/2018 Status: F Source: KINJAL 5:04 PM [facility] REPOSITORY TYPE CODE TESTS RESULT OUT OF REFERENCE UNITS RANGE LAB L501.080 70-110 mg/dL High BEDSIDE GLU 189 Result Comment: MANAGEMENT OF PATIENT CARE PER NURSING PROTOCOL Performed By: #### L501.080 #### [facility] Point of Care [address] [place] [address] BEDSIDE GLUCOSE Collected: 04/05/2018 Status: F Source: KINJAL 11:31 AM [facility] REPOSITORY TYPE CODE TESTS RESULT OUT OF REFERENCE UNITS RANGE LAB L501.080 70-110 mg/dL High BEDSIDE GLU 274 Result Comment: MANAGEMENT OF PATIENT CARE PER NURSING PROTOCOL Performed By: #### L501.080 #### [facility] Point of Care [address] [place] [address] BEDSIDE GLUCOSE Collected: 04/05/2018 Status: F Source: KINJAL 8:59 AM [facility] REPOSITORY TYPE CODE TESTS RESULT OUT OF RANGE REFERENCE UNITS LAB L501.080 70-110 mg/dL Normal BEDSIDE GLU 96 Result Comment: MANAGEMENT OF PATIENT CARE PER NURSING PROTOCOL Performed By: #### L501.080 #### [facility] Point of Care [address] [place] [address] HISTORY AND PHYSICAL Observed: 04/05/2018 Status: F Source: MEARS EXAM 7:46 AM [facility] REPOSITORY [facility] Medical Records Department [address] [place] [address] History and Physical 04/04/18 1724 MR#: [id number] Acct: [id number] Name: TAMIA PANDA Rep #: [id number] : 1955 63 From: Shirley Fabian MD PCP: Bhupendra Oliveira MD Status: ADM IN Location: [place] [address] Problem List (1) GERD (gastroesophageal reflux disease) Status: Chronic Qualifiers: Esophagitis presence: esophagitis presence not specified Qualified Code(s): K21.9 - Gastro-esophageal reflux disease without esophagitis (2) Hyperlipemia Status: Chronic Qualifiers: Hyperlipidemia type: unspecified Qualified Code(s): E78.5 - Hyperlipidemia, unspecified (3) Hypertension Status: Chronic Qualifiers: Hypertension type: essential hypertension Qualified Code(s): I10 - Essential (primary) hypertension (4) Hypothyroidism Status: Chronic Qualifiers: Hypothyroidism type: unspecified Qualified Code(s): E03.9 - Hypothyroidism, unspecified (5) PARESH (obstructive sleep apnea) Status: Chronic (6) S/P PTCA (percutaneous transluminal coronary angioplasty) Status: Chronic (7) Acute hypoglycemia Status: Acute History of Present Illness Date of Admission: 04/04/18 Chief Complaint: Altered mental status 63 year old F with multiple comorbidities including type 2 DM, hypertension, chronic respiratory failure secondary to COPD, PARESH on BiPAP,chronic atrial fibrillation who was brought in by the EMS squad with complaints of difficulty to arouse. History was taken from his son who lives close by and comes in to visit every day. He saw his mother around 12 noon and she was sleeping in a chair. Apparently been up since 9 AM was still sleeping in the chair. The other son found her a couple of hours later still sleepy and difficult to arouse. He called the EMS, blood sugar was 50 and she was treated. Blood sugar on arrival to the ED was 85. Further questioning shows that patient does not be using his BiPAP at home, according to the son, she had it at home on trial basis. Past Medical History Past Medical History (Chronic Problems): Chronic Problems Diabetes mellitus type 2 in obese (Chronic) Coronary arteriosclerosis (Chronic) cath 05/2015 mild-moderate disease medical therapy recommended Hypothyroidism (Chronic) Hyperlipemia (Chronic) GERD (gastroesophageal reflux disease) (Chronic) Hypertension (Chronic) COPD (chronic obstructive pulmonary disease) (Chronic) Chronic respiratory insufficiency (Chronic) On home oxygen at night S/P PTCA (percutaneous transluminal coronary angioplasty) (Chronic) PARESH (obstructive sleep apnea) (Chronic) Allergies ciprofloxacin [From Cipro] Allergy (Verified 02/07/18 19:42) Hives latex Allergy (Verified 02/07/18 19:42) matos me niacin [From Niaspan Extended-Release] Allergy (Verified 02/07/18 19:42) Hives ondansetron [From Zofran] Allergy (Verified 02/07/18 19:42) Unknown Xanthines Allergy (Verified 02/07/18 19:42) Unknown Penicillins Adverse Reaction (Mild, Verified 02/07/18 19:42) Itching/redness orphenadrine citrate [From Norgesic] Adverse Reaction (Verified 02/07/18 19:42) groggy medical tape Adverse Reaction (Uncoded 02/07/18 19:42) blisters Home Medications: Ambulatory Orders Medication Instructions Recorded Albuterol Inhaler [Ventolin Hfa] 2 puff INHALATION Q4H PRN PRN 02/03/18 Apixaban [Eliquis] 2.5 mg PO BID 02/03/18 Ascorbic Acid [Vitamin C] 500 mg PO DAILY@0800 02/03/18 Surgical History: angioplasty, cholecystectomy, herniorrhaphy, hysterectomy, - - tubal ligation. Psychiatric History: No pertinent psych hx LOG CUT OFF SAWYER History: No pertinent LOG CUT OFF SAWYER history Smoking Status: Former smoker Tobacco Use: Non-smoker Alcohol: None Drugs: None - *Family History Maternal History Items: No pertinent history Paternal History Items: Heart Disease, Stroke - age 62 Offspring History Items: No pertinent history - 5 children, 32 grand children and great grandchildren Review of Systems Constitutional: Reports: Weakness. Denies: Chills, Fever, Weight Change HEENT: Denies: Head Aches, Sinus Congestion, Sinus Drainage Cardiovascular: Denies: Chest Pain, Claudication, Chest Pressure, Orthopnea, Palpitations, Paroxysmal Noc. Dyspnea Respiratory: Denies: Cough, Shortness of breath at rest, Sputum production Gastrointestinal: Denies: Abdominal Pain, Nausea, Vomiting Skin: Denies: Wounds Unable to obtain accurate/complete ROS d/t: ROS was limited on account of patient's lethargy VTE Information - Inpt Only VTE Present on Admission: No VTE Pharm Prophylaxis ordered?: Yes Patient Problems: Active and Suspected Problems Hypoglycemia (Acute) - Physical Exam General: Alert, Cooperative, Lethargic HEENT: Atraumatic, PERRLA, EOMI, Normocephalic Oral: Moist Mucosa Neck: Supple Lungs: Clear to auscultation, Normal air movement Cardiovascular: Regular rate, Regular Rhythm, Normal S1, Normal S2, No murmurs Abdomen: Bowel Sounds Present, Soft, Non Tender, Non-Distended, No Hepato-splenomegaly Extremities: No edema Skin: No rashes, No breakdown Musculoskeletal: No Tenderness to Palpation of Joints or Extremities Lymphatic: No Cervical, Supraclavicular, or Inguinal Adenopathy Neurological: Cranial nerves II-XII grossly intact, Neuro grossly intact Psych/Mental Status: Normal Affect, Appropriate Vital Signs Temp Pulse Resp BP Pulse Ox 98.0 F 62 17 105/68 98 04/04/18 15:33 04/04/18 17:09 04/04/18 17:09 04/04/18 17:09 04/04/18 17:09 Oxygen Flow Rate (L/min) 2 Oxygen Delivery Method Room Air Weight: 101.3 kg Body Mass Index (BMI) 39.5 Finger Stick Blood Glucose 85 Laboratory Tests Past 24 Hrs WBC 7.1 RBC 3.93 L Hgb 11.9 L Hct 38.7 WBC RBC Hgb Hct WBC RBC Hgb Hct MCV MCH MCHC RDW RDW Differential Plt Count MPV Immature Gran % (Auto) Neut % (Auto) Lymph % (Auto) POC Glucose POC Glucose 85 Assessment/Plan All Active Problems Mental status alteration (Acute) Acute on chronic respiratory failure with hypoxia and hypercapnia (Acute) COPD exacerbation (Acute) Possible pneumonia (Acute) Atrial fibrillation with RVR (Acute) Hypoglycemia (Acute) COPD with moderate acute bronchitis (Acute) Acute hypoglycemia (Acute) Abnormal nuclear stress test (Resolved) Pneumonia (Resolved) Septic shock (Resolved) 63 year old F with multiple comorbidities including type 2 DM, hypertension, chronic respiratory failure secondary to COPD, PARESH on BiPAP,chronic atrial fibrillation who was brought in by the EMS squad with complaints of difficulty to arouse. 1. Acute metabolic encephalopathy, multifactorial etiology, she was found hypoglycemic, encephalopathy persisted even after correcting hypoglycemia. Lethargy could be contributing to that by hypercapnia, she has not been using her BiPAP Plan: Admit to PCU, monitor on telemetry, start on BiPAP settings as was in the hospital in January, (12/, 35%), monitor mentation 2. Episode of hypoglycemia in a type II diabetic, likely related to poor p.o. intake, blood sugar was 50 by the EMS, repeat in the ED was 85 and 150 PLAN: Continue on D5 normal saline with Accu-Cheks every 6 and will switch to before meals at bedtime when patient is much more awake and alert would hold home insulin for now 3. Chronic respiratory failure secondary to COPD, no signs of exacerbation, will continue with as needed breathing treatments 4. Paroxysmal atrial fibrillation, rate controlled, continue on home medications 5. History of recurrent UTI, UA is not suggestive of UTI 6. CAD, continue on aspirin, betablocker, statin 7. Hypertension, controlled, continue home meds 8. Hypothyroidism, continue on hypothyroidism 9. PARESH, not using her Bipap at night 10. Recently found lung mass, patient was supposed to follow up with PCP for repeat chest x-ray in 3 months 11. DVT PPx- Lovenox SC Code Visit Inpatient E AND M: [id number] Init Hosp L3 04/05/18 0746 <Electronically signed by Shirley Fabian MD> Date Shirley Fabian MD Cosigner Signature: Date (if applicable) CC: Shirley Fabian MD; Bhupendra Oliveira MD Signed BEDSIDE GLUCOSE Collected: 04/05/2018 Status: F Source: KINJAL 5:53 AM [facility] [place] REPOSITORY TYPE CODE TESTS RESULT OUT OF RANGE REFERENCE UNITS LAB L501.080 70-110 mg/dL Normal BEDSIDE GLU 100 Result Comment: MANAGEMENT OF PATIENT CARE PER NURSING PROTOCOL Performed By: #### L501.080 #### [facility] Point of Care [address] [place], [place] [address] BASIC METABOLIC Collected: 04/05/2018 Status: F Source: KINJAL PROFILE (BMP) 5:10 AM [facility] REPOSITORY TYPE CODE TESTS RESULT OUT OF RANGE REFERENCE UNITS LAB L501.0100 74-106 mg/dL High GLU 107 Result Comment: Fasting Glucose result from 100 to 125 mg/dL suggests IMPAIRED HOMEOSTASIS per A.D.A. criteria. Please note revised GLUCOSE reference range effective 2017. LAB L501.1000 7-18 mg/dL Normal BUN 11 LAB L501.1100 0.55-1.02 mg/dL Low CREAT,SERUM 0.48 Result Comment: The validity of the calculated GFR AND GFRAA in patients over 70 years has not been determined. Clinical correlation is essential. LAB L501.1110 >60 mL/min Normal EST GFR 138 Result Comment: Non- GFR Calc LAB L501.1115 >60 mL/min Normal EST GFR - AA 167 Result Comment: GFR Calc LAB L501.1255 ml/min Normal Estimated CRCL 94.88 LAB L501.1300 10-20 RATIO High BUN/CRE 22.8 LAB L501.2200 8.5-10 mg/dL Low .1 CA 8.1 LAB L501.5300 136-14 mmol/L High 5 NA 146 LAB L501.5600 3.5-5. mmol/L Low 1 K 3.1 LAB L501.5900 98-107 mmol/L Normal CL 106 LAB L501.6100 21.0-3 mmol/L High 2.0 CO2 35.0 LAB L501.6200 5-15 Normal GAP 5 Performed By: #### L500.2500 #### [facility] [address] [place], [address] BEDSIDE GLUCOSE Collected: 04/05/2018 Status: F Source: KINJAL 4:00 AM [facility] REPOSITORY TYPE CODE TESTS RESULT OUT OF RANGE REFERENCE UNITS LAB L501.080 70-110 mg/dL Normal BEDSIDE GLU 108 Result Comment: MANAGEMENT OF PATIENT CARE PER NURSING PROTOCOL Performed By: #### L501.080 #### [facility] Point of Care [address] [place] [address] BEDSIDE GLUCOSE Collected: 04/05/2018 Status: F Source: KINJAL 2:18 AM [facility] REPOSITORY TYPE CODE TESTS RESULT OUT OF REFERENCE UNITS RANGE LAB L501.080 70-110 mg/dL High BEDSIDE GLU 144 Result Comment: MANAGEMENT OF PATIENT CARE PER NURSING PROTOCOL Performed By: #### L501.080 #### [facility] Point of Care [address] [place] [address] BEDSIDE GLUCOSE Collected: 04/05/2018 Status: F Source: KINJAL 1:49 AM [facility] [place] REPOSITORY TYPE CODE TESTS RESULT OUT OF REFERENCE UNITS RANGE LAB L501.080 70-110 mg/dL Low alert BEDSIDE GLU 34 Result Comment: MANAGEMENT OF PATIENT CARE PER NURSING PROTOCOL Performed By: #### L501.080 #### [facility] Point of Care [address] [place] [address] BEDSIDE GLUCOSE Collected: 04/04/2018 Status: F Source: KINJAL 11:23 PM [facility] REPOSITORY TYPE CODE TESTS RESULT OUT OF RANGE REFERENCE UNITS LAB L501.080 70-110 mg/dL Normal BEDSIDE GLU 72 Result Comment: MANAGEMENT OF PATIENT CARE PER NURSING PROTOCOL Performed By: #### L501.080 #### [facility] Point of Care [address] [place] [address] BEDSIDE GLUCOSE Collected: 04/04/2018 Status: F Source: KINJAL 8:31 PM [facility] REPOSITORY TYPE CODE TESTS RESULT OUT OF REFERENCE UNITS RANGE LAB L501.080 70-110 mg/dL High BEDSIDE GLU 191 Result Comment: MANAGEMENT OF PATIENT CARE PER NURSING PROTOCOL Performed By: #### L501.080 #### [facility] Point of Care [address] [place] [address] BEDSIDE GLUCOSE Collected: 04/04/2018 Status: F Source: KINJAL 8:09 PM [facility] REPOSITORY TYPE CODE TESTS RESULT OUT OF REFERENCE UNITS RANGE LAB L501.080 70-110 mg/dL Low BEDSIDE GLU 48 Result Comment: MANAGEMENT OF PATIENT CARE PER NURSING PROTOCOL Performed By: #### L501.080 #### [facility] Point of Care [address] [place] [address] BEDSIDE GLUCOSE Collected: 04/04/2018 Status: F Source: KINJAL 5:39 PM [facility] REPOSITORY TYPE CODE TESTS RESULT OUT OF REFERENCE UNITS RANGE LAB L501.080 70-110 mg/dL High BEDSIDE GLU 150 Result Comment: MANAGEMENT OF PATIENT CARE PER NURSING PROTOCOL Performed By: #### L501.080 #### [facility] Point of Care [address] [facility] [place] [address] EMERGENCY DEPARTMENT Observed: 04/04/2018 Status: F Source: KINJAL SUMMARY 5:19 PM [facility] REPOSITORY [facility] Medical Records Department [address] [facility] [place] [address] Emergency Department Summary 04/04/18 1540 MR#: [id number] Acct: [id number] Name: TAMIA PANDA Rep #: [id number] : 1955 63 From: Keshawn Miguel MD PCP: Bhupendra Oliveira MD Status: REG ER - ER Visit Summary Date of Service: 04/04/18 Chief Complaint: Unresponsive History of Present Illness: The patient is a 63 F who was unresponsive. EMS was called and her blood sugar was 50. They gave intramuscular glucagon without any significant change in her mental status. Family states that she has been sleeping most of the day. She does have a history of hypoglycemia in the past and has been admitted for this. She does have a history of atrial fibrillation on Eliquis. Family does not know of any recent falls. Physical Examination: Vital signs reviewed. Well-developed female who was not responsive to voice. HEENT exam reveals her left pupil was 3 mm in her right pupil is 2 mm. They are both equally reactive. Heart is regular rate and rhythm. Lungs are clear bilaterally. Abdomen is soft with nondistention. Extremities show no edema. She has no rashes. Her neurologic exam reveals that she is lethargic. She barely opens her eyes with any voice response. She is responsive to pain with sternal rub. Her GCS is 8. Test Results: EKG is atrial fibrillation with rate 64. Checks x-ray reveals chronic changes. CAT scan of the head reveals chronic changes. Hemoglobin 11.9. Sodium 147. Tox, alcohol, troponin, BNP normal. ABG is 7.3 //34 Emergency Department Course and Treatment: The patient was given D50 upon her arrival without any significant change. It did raise her blood sugar but her mental status was the same. I am unclear the etiology of her delirium. I doubt that the blood sugar has anything to do with it. Since she is not back to her baseline I feel she should be admitted to the hospital for further testing Treatment Plan: [] Disposition: Admit Impression: Hypoglycemia, delirium This note was generated with Cureeo dictation software. It may contain incorrect words, spelling, and punctuation that were not noted in review of the chart prior to signing ED Disposition - Plan for ED Patient: Chief Complaint: Hypoglycemia Referrals: Bhupendra Oliveira MD [Primary Care Provider] - What to do if you have Problems For any increased pain, shortness of breath, bleeding, nausea or vomiting, chest pain, or any unexpected problems, contact your Primary Care Provider. Call [facility] ([phone]) or report to the closest Emergency Room. Call 911 if necessary. 04/04/18 9780 <Electronically signed by Keshawn Miguel MD> Date Keshawn Miguel MD Cosigner Signature (If Indicated): Date CC: Bhupendra Oliveira MD URINE DRUG SCREEN Collected: 04/04/2018 Status: F Source: KINJAL (VISTA) 4:37 PM [facility] REPOSITORY Order Comment: Order Date: 04/04/18 Has pt arrived? Y TYPE CODE TESTS RESULT OUT OF RANGE REFERENCE UNITS LAB L505.0075 TO BE Normal CONFIRMED Result Comment: CONFIRMATORY TESTING FOR ALL POSITIVE URINE DRUG SCREEN RESULTS WILL ONLY BE SENT OUT UPON PHYSICIAN ORDER. VISTA Urine Drug Screen methods provide only preliminary analytical test results. A more specific alternate chemical method must be used in order to obtain a confirmed analytical result. Gas chromatography/mass spectrometery (GC/MS) is the preferred confirmatory method. Clinical consideration and professional judgement should be applied to any drug of abuse test result, particularly when preliminary positive results are used. URINE TCA TESTING MUST BE ORDERED SEPARATELY. USE TEST MNEMONIC: [facility] LAB L505.5005 VISTA UDS PH 5 Normal LAB L505.5015 <1000 ng/mL AMPHETAMINES Normal NEGATIVE LAB L505.5025 < 200 ng/mL BARBITIURATES Normal NEGATIVE LAB L505.5035 < 200 ng/mL BENZODIAZIPINE Normal NEGATIVE LAB L505.5045 < 300 ng/mL COCAINE Normal NEGATIVE LAB L505.5055 < 500 ng/mL ECSTACY Normal NEGATIVE LAB L505.5065 < 300 ng/mL METHADONE Normal NEGATIVE LAB L505.5075 < 300 ng/mL OPIATES Normal NEGATIVE LAB L505.5085 < 25 ng/mL PCP Normal NEGATIVE LAB L505.5095 < 50 ng/mL THC Normal NEGATIVE Performed By: #### L505.5000 #### [facility] [address] [place], [address] URINALYSIS, COMPLETE Collected: 04/04/2018 Status: F Source: MEARS 4:37 PM [facility] REPOSITORY Order Comment: Order Date: 04/04/18 Has pt arrived? Y How was Urine Obtained? CLEAN CATCH TYPE CODE TESTS RESULT OUT OF RANGE REFERENCE UNITS LAB L400.3000 Yellow COLOR Normal Yellow LAB L400.3050 Clear Normal CLARITY Clear LAB L400.3200 Normal mg/dl Normal GLUCOSE, UR Normal LAB L400.3300 Negative mg/dL Normal BILIRUBIN URINE Negative LAB L400.3400 Negative mg/dl Normal KETONE UR Negative LAB L400.3465 1.002-1.030 Normal SP.GR. DIPSTX 1.015 LAB L400.3550 5.0 - 8.0 pH UR Normal 6.0 LAB L400.3600 Negative mg/dl PROT Normal DIPSTX Negative LAB L400.3700 Normal mg/dl Normal UROBILI Normal LAB L400.3750 Negative Normal NITRITE UR Negative LAB L400.3780 Negative /ul Normal OCCULT BLOOD-UR Negative LAB L400.3800 Negative /ul High LEUK 25 ESTERASE LAB L400.4050 0-5 /hpf WBC Normal 0-5 SEEN LAB L400.4100 0-5 /hpf 0 Normal RBC-UA SEEN LAB L400.4150 5-10 /hpf SQUAM 0 Normal EPI SEEN LAB L400.4300 None Seen /hpf 0 Normal BACTERIA SEEN LAB L400.4350 <or=2+ /hpf 0 Normal MUCUS, URINE SEEN Performed By: #### L400.0001 #### [facility] [address] [place], [address] BLOOD GASES BY [facility] Collected: 04/04/2018 Status: F Source: MEARS 4:06 PM [facility] REPOSITORY TYPE CODE TESTS RESULT OUT OF RANGE REFERENCE UNITS LAB L9000.9990 Normal BLD GAS TYPE ART LAB L9001.1000 Normal SITE L Radial LAB L9001.1010 Normal SALO TEST POS LAB L9001.1050 O2 Normal Delivery Dev Nasal Can LAB L9001.1055 /min Normal LPM 3.0 LAB L9001.1104 Normal Results To ED MD LAB L9001.1105 Normal Time Given 1557 LAB L9001.1110 7.35-7.45 pH Normal - I-STAT 7.35 LAB L9001.1210 35-45 mmHg High pCO2 - ISTAT 61.3 LAB L9001.1310 75-100 mmHG Normal PO2 I-STAT 87 LAB L9001.2300 22-26 mmol/L High HCO3 ISTAT 34.1 LAB L9001.2400 -2 to +2 mmol/L High BE ISTAT 9 LAB L9001.2415 mmol/L Normal TOTAL CO2 36 ISTAT LAB L9001.2425 95-99 % Normal SO2 ISTAT 96 Performed By: #### L9000.0800 #### [facility] Point of Care [address] [facility] [place] [address] LACTIC ACID Collected: 04/04/2018 Status: F Source: MEARS 3:49 PM [facility] REPOSITORY Order Comment: Yes/No query for Sepsis Lactate Rule Y TYPE CODE TESTS RESULT OUT OF RANGE REFERENCE UNITS LAB L503.6005 0.4-2.0 mmol/L Normal LACTIC ACID 1.3 Performed By: #### L503.6005 #### [facility] [address] [facility] [place], [address] CBC W/DIFF, AUTOMATED Collected: 04/04/2018 Status: F Source: MEARS 3:42 PM [facility] REPOSITORY TYPE CODE TESTS RESULT OUT OF RANGE REFERENCE UNITS LAB L100.1000 4.4-11.0 K/mm3 Normal WBC 7.1 LAB L100.1200 4.2-5.4 M/mm3 Low RBC 3.93 LAB L100.1300 12.0-15.0 g/dl Low HGB 11.9 LAB L100.1400 37-47 % Normal HCT 38.7 LAB L100.1500 81-99 fL Normal MCV 98.5 LAB L100.1600 27.0-32.0 pg Normal MCH 30.3 LAB L100.1700 32-36 g/gl Low MCHC 30.7 LAB L100.1810 11.6-14.6 % High RDW CV 17.0 LAB L100.1820 35.1-43.9 fl High RDW SD 59.8 LAB L100.1900 150-450 K/mm3 Normal PLT 176 LAB L100.2000 6.2-12.0 fl Normal MPV 10.5 LAB L100.2100 47-70 % Normal NEUT% 64.3 LAB L100.2200 19-41 % Normal LY% 20.4 LAB L100.2300 0-10 % Normal MONO% 9.2 LAB L100.2400 0-5 % High EO% 5.4 LAB L100.2500 0-1 % Normal BASO% 0.4 LAB L100.2550 0.0-0.9 % Normal IM GRAN % 0.300 Result Comment: IG% - Immature Granulocytes (promyelocytes, myelocytes and metamyelocytes) > 1% indicates that a LEFT SHIFT is Present. LAB L100.2620 2.0-7.7 X10 3/uL Normal Absolute Neut 4.6 LAB L100.2720 0.83-4.51 X10 3/ul Normal Absolute Lymph 1.44 Performed By: #### L100.0100 #### [facility] [address] [facility] [place], [address] COMPREHENSIVE METABOLIC Collected: 04/04/2018 Status: F Source: KINJAL SOARES 3:42 PM [facility] REPOSITORY TYPE CODE TESTS RESULT OUT OF RANGE REFERENCE UNITS LAB L501.0100 74-106 mg/dL Low GLU 70 Result Comment: Please note revised GLUCOSE reference range effective 2017. LAB L501.1000 7-18 mg/dL Normal BUN 12 LAB L501.1100 0.55-1.02 mg/dL Normal CREAT,SERUM 0.70 Result Comment: The validity of the calculated GFR AND GFRAA in patients over 70 years has not been determined. Clinical correlation is essential. LAB L501.1110 >60 mL/min Normal EST GFR 90 Result Comment: Non- GFR Calc LAB L501.1115 >60 mL/min Normal EST GFR - AA 109 Result Comment: GFR Calc LAB L501.1255 ml/min Normal Estimated CRCL 68.05 LAB L501.1300 10-20 RATIO Normal BUN/CRE 17.2 LAB L501.1500 6.4-8. g/dL Normal 2 T PROT 7.3 LAB L501.1800 3.2-5. g/dL Normal 0 ALB 3.2 LAB L501.1950 2.2-4. g/dL Normal 2 GLOB 4.1 LAB L501.2000 0.9-2. RATIO Low 4 A/G 0.8 LAB L501.2200 8.5-10 mg/dL Low .1 CA 8.3 LAB L501.4100 15-37 U/L Low AST 13 LAB L501.4305 45-117 U/L Normal ALK P 45 LAB L501.4405 13-56 U/L Normal ALT 13 LAB L501.4600 0.20-1 mg/dL High .00 T BILI 1.10 LAB L501.5300 136-14 mmol/L High 5 NA 147 LAB L501.5600 3.5-5. mmol/L Normal 1 K 3.5 LAB L501.5900 98-107 mmol/L Normal CL 106 LAB L501.6100 21.0-3 mmol/L High 2.0 CO2 36.0 LAB L501.6200 5-15 Normal GAP 5 Performed By: #### L500.4050, L501.4010 #### [facility] [address] [facility] [place], [address] TROPONIN-I Collected: 04/04/2018 Status: F Source: MEARS 3:42 PM [facility] REPOSITORY TYPE CODE TESTS RESULT OUT OF RANGE REFERENCE UNITS LAB L501.4010 <0.045 ng/mL Normal < 0.015 TROPONIN-I Result Comment: TROPONIN-I EXPECTED VALUES <0.045 Negative 0.045 - 0.590 Consistent with Cardiac Damage > OR = 0.600 Critical Value Not every elevated troponin is indicative of DC. These values should be used with clinical judgement in examining the patient's clinical picture for diagnosis. To establish a diagnosis of DC versus myocardial injury, there must be a demonstrated rise and/or fall in the troponin values, in addition to ischemic symptoms, EKG changes, new regional wall motion abnormality, and/or angiographical evidence. PLEASE NOTE: REFERENCE RANGES EDITED 18 Performed By: #### L500.4050, L501.4010 #### [facility] [address] [facility] [place], [address] ALCOHOL, BLOOD Collected: 04/04/2018 Status: F Source: MEARS (MEDICAL)-SERUM 3:42 PM [facility] REPOSITORY TYPE CODE TESTS RESULT OUT OF RANGE REFERENCE UNITS LAB L501.9100 mg/dL Normal SERUM 4.0 ETOH Result Comment: The serum:whole blood ethanol ratio is approximately 1.14 and varies slightly with hematocrit. Medical Alcohol reference interval and critical value in non-tolerant individuals; 50 - 100 Impairment 100 Intoxication 100 - 250 Severe Poisoning 250 - 400 Deep/possible fatal coma Performed By: #### L501.9100 #### [facility] [address] [facility] [place], [address] BRAIN/HEAD WITHOUT Observed: 04/04/2018 Status: F Source: MEARS CONTRAST 3:38 PM [facility] REPOSITORY [facility] Imaging Services [address] [place] [id number] Brain/Head without Contrast MR#: [id number] Acct: [id number] Name: TAMIA PANDA Rep #: [id number] : 1955 F 63 From: Jelly Terrazas MD PCP: Bhupendra Oliveira MD Status: REG ER Study: Brain/Head without Contrast Date of Exam: 04/04/18 Exam# [id number] Ordering Dr: Keshawn Miguel MD STUDY: CT BRAIN WITHOUT CONTRAST REASON FOR EXAM: Female, 63 years old. Altered mental status. Hypoglycemia and history of CVA. RADIATION DOSAGE (If Supplied By Facility): CTDIvol = ( 44.99 ) mGy, DLP = ( 745.49 ) mGycm TECHNIQUE: Transaxial CT imaging of the brain was performed without administration of intravenous contrast material. Multiplanar reformations are submitted for interpretation. Individualized dose optimization techniques were used for this CT. COMPARISON: CT of the head dated January 02, 2018. FINDINGS: Normal soft tissue structures. Normal calvarium. There is mild cerebral atrophy with widening of the extra- axial spaces and ventricular dilatation. There are areas of decreased attenuation within the white matter tracts of the supratentorial brain, consistent with microvascular disease changes. Small lucency is visible in the left thalamus possibly related to old infarct. The basal ganglia have a normal appearance. Normal brainstem. There is mild cerebellar atrophy. There is no intracranial hemorrhage. There is mild atherosclerotic calcification of intracranial arteries. There is mucoperiosteal inflammatory disease of the paranasal sinuses consistent with mild chronic sinusitis. There appears to be a defect within the nasal septum. This may be the result of previous surgery. CT/Brain/Head without Contrast IMPRESSION: 1. Chronic involutional changes of the brain. 2. No CT evidence of acute intracranial hemorrhage. Electronically Signed: Jelly Terrazas MD at 16:56 EDT , Service support , CC: Bhupendra Oliveira MD; Keshawn Miguel MD Pipe Recovery Specialist: Signed CHEST 1 VIEW Observed: 04/04/2018 Status: F Source: KINJAL (PORTABLE) 3:38 PM [facility] REPOSITORY [facility] Imaging Services [address] [place] [address] Chest 1 View (Portable) MR#: [id number] Acct: [id number] Name: TAMIA PANDA Rep #: [id number] : 1955 F 63 From: Jelly Terrazas MD PCP: Bhupendra Oliveira MD Status: REG ER Study: Chest 1 View (Portable) Date of Exam: 04/04/18 Exam# [id number] Ordering Dr: Keshawn Miguel MD STUDY: X-RAY CHEST REASON FOR EXAM: Female, 63 years old. Cough. TECHNIQUE: Two AP portable views of the chest. COMPARISON: CT of the chest dated February 08, 2018. FINDINGS: Cardiac monitoring leads are present. The lungs are expanded with mild prominence of bronchovascular markings. There is no demonstrated pleural abnormality. There is moderate cardiac enlargement. Normal mediastinum and tracie. There is prominence of the pulmonary hilar arteries with peripheral pulmonary vascular congestion. There is atherosclerotic calcification of the aortic arch with tortuosity. There are diffuse degenerative changes of the visualized thoracic spine. Normal visualized ribs, clavicles, and shoulders. There is no demonstrated abnormality of the visualized soft tissue structures of the upper abdomen. RAD/Chest 1 View (Portable) IMPRESSION: Cardiomegaly and mild pulmonary congestion. Electronically Signed: Jelly Terrazas MD at 17:01 EDT , Service support , CC: Bhupendra Oliveira MD; Keshawn Miguel MD Pipe Recovery Specialist: Signed BEDSIDE GLUCOSE Collected: 04/04/2018 Status: F Source: [place] 3:35 PM [facility] [place] REPOSITORY TYPE CODE TESTS RESULT OUT OF RANGE REFERENCE UNITS LAB L501.080 70-110 mg/dL Normal BEDSIDE GLU 85 Result Comment: MANAGEMENT OF PATIENT CARE PER NURSING PROTOCOL Performed By: #### L501.080 #### [facility] Point of Care [address] [place] [address] CBC AND DIFFERENTIAL Collected: 03/20/2018 Status: F Source: RUSSELL 12:40 PM [facility] REPOSITORY TYPE CODE TESTS RESULT OUT OF REFERENCE UNITS RANGE LAB WBC 3.70-11.00 k/uL WBC 6.53 LAB RBC 3.90-5.20 m/uL RBC 3.92 LAB HGB 11.5-15.5 g/dL Low Hemoglobin 11.3 LAB HCT 36.0-46.0 % Hematocrit 36.8 LAB MCV 80.0-100.0 fL MCV 93.9 LAB MCH 26.0-34.0 pG MCH 28.8 LAB MCHC 30.5-36.0 g/dL MCHC 30.7 LAB RDWCV 11.5-15.0 % RDW-CV High 17.2 LAB PLTCT 150-400 k/uL Platelet Count 206 LAB MPV 9.0-12.7 fL MPV 11.5 LAB ANEUT % Neut% 61.6 LAB AANEUT 1.45-7.50 k/uL Abs Neut 4.02 LAB ALYMP % Lymph% 24.0 LAB AALYMP 1.00-4.00 k/uL Abs Lymph 1.57 LAB AMONO % Bethel% 11.0 LAB AAMONO <0.87 k/uL Abs Bethel 0.72 LAB AEOS % Eosin% 2.8 LAB AAEOS <0.46 k/uL Abs Eosin 0.18 LAB ABASO % Baso% 0.6 LAB AABASO <0.11 k/uL Abs Baso 0.04 LAB AUNRBC 0 /100 WBC NRBCs High 0.3 LAB ABNRBC <0.01 k/uL Absolute High nRBC 0.02 LAB DTYP DTYPE Auto Diff Performed By: #### CBCDIF, CK, CMP, CRP, RF, WSR, ALD, SCL70, ENAID, ANA1, ANCA, DNA, ANAIFS #### [facility] [address] [place], [place] [address] CK Collected: 03/20/2018 Status: F Source: [facility] 12:40 PM [facility] REPOSITORY TYPE CODE TESTS RESULT OUT OF RANGE REFERENCE UNITS LAB CK 42-196 U/L Low CK 31 Result Comment: Please note the updated, gender-specific reference range for this test (effective 09/05/2016). Performed By: #### CBCDIF, CK, CMP, CRP, RF, WSR, ALD, SCL70, ENAID, ANA1, ANCA, DNA, ANAIFS #### [facility] [address] [place] [id number] COMP METABOLIC PANEL Collected: 03/20/2018 Status: F Source: RUSSELL 12:40 PM [facility] [place] REPOSITORY TYPE CODE TESTS RESULT OUT OF REFERENCE UNITS RANGE LAB TP 6.3-8.0 g/dL Protein, Total 6.6 LAB ALB 3.9-4.9 g/dL Low Albumin 3.7 LAB CA 8.5-10.2 mg/dL Calcium, Total 8.6 LAB TBIL 0.2-1.3 mg/dL Bilirubin, Total 0.7 LAB ALKP 32-117 U/L Alkaline Phosphatase 40 LAB AST 13-35 U/L AST 19 LAB GLU 74-99 mg/dL Glucose High 116 Result Comment: The [place] Diabetes Association (ADA) provides guidance for cutoff values for fasting glucose and random glucose. The ADA defines fasting as no caloric intake for at least 8 hours. Fas ting plasma glucose results between 100 to 125 mg/dL indicate increased risk for diabetes (prediabetes). Fasting plasma glucose results greater than or equal to 126 mg/dL meet the criteria for diagnosis of diabetes. In the absence of unequivocal hyperglycemia, results should be confirmed by repeat testing. In a patient with classic symptoms of hyperglycemia or hyperglycemic crisis, random plasma glucose results greater than or equal to 200 mg/dL meet the criteria for diagnosis of diabetes. Reference: Standards of Medical Care in Diabetes 2016, [place] Diabetes Association. Diabetes Care. 2016.39(Suppl 1). LAB BUN 7-21 mg/dL BUN 13 LAB CRET 0.58-0.96 mg/dL Creatinine 0.62 LAB NA 136-144 mmol/L Sodium 141 LAB K 3.7-5.1 mmol/L Potassium 4.1 LAB CL 97-105 mmol/L Chloride 97 LAB CO2 22-30 mmol/L CO2 High 34 LAB AGAP 9-18 mmol/L Anion Gap 10 LAB ALT 7-38 U/L ALT 15 LAB GFRAA eGFR- Amer. >60 LAB GFRNAA . eGFR-All Other Races >60 Result Comment: eGFR (Estimated GFR) Units of measure: mL/min/1.73 meters squared eGFR is derived from the reexpressed MDRD Study equation using the following parameters: serum creatinine, age, gender and race. The creatinine assay has been calibrated to be traceable to IDMS. An eGFR <60 mL/min/1.73m2 for >3 months is consistent with chronic kidney disease. Refer to KDOQI guidelines for clinical interpretation. In patients with unstable renal function, e.g. those with acute kidney injury, the eGFR may not accurately reflect actual GFR. Performed By: #### CBCDIF, CK, CMP, CRP, RF, WSR, ALD, SCL70, ENAID, ANA1, ANCA, DNA, ANAIFS #### [place] [address] C-REACTIVE PROTEIN Collected: 03/20/2018 Status: F Source: RUS[place]LL 12:40 [facility] REPOSITORY TYPE CODE TESTS RESULT OUT OF REFERENCE UNITS RANGE LAB CRP <0.9 mg/dL C-Reactive 0.2 Protein Performed By: #### CBCDIF, CK, CMP, CRP, RF, WSR, ALD, SCL70, ENAID, ANA1, ANCA, DNA, ANAIFS #### [place] [address] RHEUMATOID FACTOR Collected: 03/20/2018 Status: F Source: [place]LL 12:40 [facility] REPOSITORY TYPE CODE TESTS RESULT OUT OF REFERENCE UNITS RANGE LAB RF <16 IU/mL Rheumatoid <10 Factor Performed By: #### CBCDIF, CK, CMP, CRP, RF, WSR, ALD, SCL70, ENAID, ANA1, ANCA, DNA, ANAIFS #### [place] [id number] SED RATE WESTERGREN Collected: 03/20/2018 Status: F Source: RUS[place]LL 12:40 [facility] REPOSITORY TYPE CODE TESTS RESULT OUT OF REFERENCE UNITS RANGE LAB WSR 0-20 mm/hr Sed Rate Westergren 15 Performed By: #### CBCDIF, CK, CMP, CRP, RF, WSR, ALD, SCL70, ENAID, ANA1, ANCA, DNA, ANAIFS #### [place] [id number] ALDOLASE Collected: 03/20/2018 Status: F Source: RUS[place]LL 12:40 [facility] REPOSITORY TYPE CODE TESTS RESULT OUT OF REFERENCE UNITS RANGE LAB ALD 1.2-7.6 U/L Aldolase 4.8 Performed By: #### CBCDIF, CK, CMP, CRP, RF, WSR, ALD, SCL70, ENAID, ANA1, ANCA, DNA, ANAIFS #### [place] [address] SCLERODERMA IGG AB Collected: 03/20/2018 Status: F Source: RUS[place]LL 12:40 [facility] REPOSITORY TYPE CODE TESTS RESULT OUT OF REFERENCE UNITS RANGE LAB SCLEIA <1.0 AI Scl-70 <0.2 Abs Result Comment: NEGATIVE Negative: <1.0 AI Positive: >0.9 AI Performed By: #### CBCDIF, CK, CMP, CRP, RF, WSR, ALD, SCL70, ENAID, ANA1, ANCA, DNA, ANAIFS #### [place] [id number] LEODAN ANTIBODY PANEL Collected: 03/20/2018 Status: F Source: RUSSELL 12:40 [facility] REPOSITORY TYPE CODE TESTS RESULT OUT OF REFERENCE UNITS RANGE LAB SMIB <1.0 AI Sm Antibody 0.4 Result Comment: NEGATIVE Negative: <1.0 AI Positive: >0.9 AI LAB RNPIB <1.0 AI SYNTHETIC STAPLE EXTRUDER Antibody 0.3 Result Comment: NEGATIVE Negative: <1.0 AI Positive: >0.9 AI LAB SSAIB <1.0 AI SSA Antibody <0.2 Result Comment: NEGATIVE Negative: <1.0 AI Positive: >0.9 AI LAB SSBIB <1.0 AI SSB Antibody <0.2 Result Comment: NEGATIVE Negative: <1.0 AI Positive: >0.9 AI LAB CENTIB <1.0 AI Centromere <0.2 Result Comment: NEGATIVE Negative: <1.0 AI Positive: >0.9 AI LAB SCLIB <1.0 AI Scleroderma IgG Ab <0.2 Result Comment: NEGATIVE Negative: <1.0 AI Positive: >0.9 AI LAB JO1IB <1.0 AI JOSSY 1 Antibody <0.2 Result Comment: NEGATIVE Negative: <1.0 AI Positive: >0.9 AI LAB RRNPIB <1.0 AI Ribosomal SYNTHETIC STAPLE EXTRUDER <0.2 Result Comment: NEGATIVE Negative: <1.0 AI Positive: >0.9 AI LAB CHRMIB <1.0 AI Chromatin Antibody <0.2 Result Comment: NEGATIVE Negative: <1.0 AI Positive: >0.9 AI Performed By: #### CBCDIF, CK, CMP, CRP, RF, WSR, ALD, SCL70, ENAID, ANA1, ANCA, DNA, ANAIFS #### [facility] [address] [place], [place] [address] BURT PANEL 1 Collected: 03/20/2018 Status: F Source: RUSSELL 12:40 PM [facility] REPOSITORY TYPE CODE TESTS RESULT OUT OF RANGE REFERENCE UNITS LAB ANAQL Negative Abnormal Alert BURT Positive by EIA, Qual Result Comment: Results are to be used as an aid to diagnosis. Confirmation testing for specific antibodies should be run if a positive assay is obtained. A positive result suggests certain diseases and should be confirmed by clinical findings. LAB ANAEIA OD Ratio BURT by 10.4 EIA Result Comment: OD Ratio is interpreted as follows: Negative <1.0 Positive >=1.0 Performed By: #### CBCDIF, CK, CMP, CRP, RF, WSR, ALD, SCL70, ENAID, ANA1, ANCA, DNA, ANAIFS #### [facility] [address] [place], [place] [address] [email or web address] Collected: Status: F Source: RUSSELL 03/20/2018 12:40 PM [facility] REPOSITORY TYPE CODE TESTS RESULT OUT OF REFERENCE UNITS RANGE LAB CANCAF Negative C-ANCA Fluorescence Negative LAB PANCAF Negative P-ANCA Fluorescence Negative LAB CANCA <1.0 AI Proteinase-3 Ab Test not performed on samples negative by immunofluoresc ence. LAB PANCA <1.0 AI Myeloperoxidase Ab Test not performed on samples negative by immunofluoresc ence. LAB ANCINT ANCA Interpretation Negative for C-ANCA and P-ANCA by indirect immunofluoresc ence. LAB ANCSTF Staff Review Staff review not performed on samples negative by immunofluoresc ence. Performed By: #### CBCDIF, CK, CMP, CRP, RF, WSR, ALD, SCL70, ENAID, ANA1, ANCA, DNA, ANAIFS #### [facility] [address] [place], [place] [address] DNA ANTIBODY W/ CONF. Collected: 03/20/2018 Status: F Source: RUSSELL 12:40 PM [facility] REPOSITORY TYPE CODE TESTS RESULT OUT OF REFERENCE UNITS RANGE LAB DNA <30 IU/mL DNA Antibody 16 w/ Conf. Result Comment: Negative for ds DNA Antibodies Negative: <30 IU/mL Equivocal: 30-74 IU/mL Positive: >74 IU/mL Performed By: #### CBCDIF, CK, CMP, CRP, RF, WSR, ALD, SCL70, ENAID, ANA1, ANCA, DNA, ANAIFS #### [facility] [address], [place] [address] BURT BY IFA Collected: 03/20/2018 Status: F Source: [place] 12:40 PM [facility] TYPE CODE TESTS RESULT OUT OF REFERENCE UNITS RANGE LAB ANASC Negative BURT Negative Result Comment: Normal range : negative at <1:80 serum dilution. Approximately 6% of patients with connective tissue diseases with low positive EIA values are negative by IFA. Recommend follow-up with specific antinuclear antibodies if clinically indicated. LAB WALDEMAR Negative Negative BURT Titer Result Comment: Normal range : negative at <1:80 serum dilution. LAB ANAP BURT Not applicable Pattern for negative result. Performed By: #### CBCDIF, CK, CMP, CRP, RF, WSR, ALD, SCL70, ENAID, ANA1, ANCA, DNA, ANAIFS #### [facility] [address] [place], [place] [address] CNOV Observed: 03/20/2018 Status: COMPLETED Source: RUSSELL 11:30 AM [facility] REPOSITORY Office Visit (PULMWS) TAMIA PANDA ([id number]) 1955 F Date Time Provider Department 03/20/18 11:30 AM LIZETTE ACOSTA During your visit today, we recorded the following information about you: Pulse Respiration Blood pressure 126/minute 24/minute 126/72 Katja Campoverde [employer]OSS 03/20/2018 11:00 AM Signed Intake information documented in the prior visit with Maryann Barfield, CURB WORKER today. Lizette Acosta PA-C 03/20/2018 12:04 PM Signed [facility] [place], 03/20/18: HPI: Tamia Panda is a 62 year old female who presents here today secondary to shortness of breath. PMH: PARESH, noncompliant, PE, Hypothyroidism, Hyperlipidemia, GERD, HTN, DM, CAD. Former smoker, quit 2005. 28 pack years. The last Pulmonary Clinic visit was 01/22/18. Patient admitted to [facility] on 2 separate occasions secondary to delirium, hypercapnia, COPD exacerbation, and uncontrolled PARESH. Admitted 02/03 to 02/05 for hypercapnia and COPD exacerbation. Returned to ED on 02/06 with progressive SOB and admitted until 02/11. Occasionally short of breath when sitting. LUZ with walking to bathroom and returning to wheelchair. Uses shower chair. Becomes short of breath easily with daily ADLs. Has nurses aid coming to home. Minimal cough, mostly non productive, no hemoptysis. No pleuritic chest pain. No wheezing. Currently not wearing BiPAP. I have to go for another sleep study. States her titration study was cancelled by [facility]. Wears 3 L supplemental oxygen continuously. DME: Yani Nogueira. PMH: Updated with patient today. FAMH: Updated with patient today. SOCH: Updated with patient today. Immunization History Administered Date(s) Administered Influenza Seasonal Inj Age 3+ 07/04/2014 07/16/2015 Influenza Seasonal Inj Quadrivalent Age 3+ 06/19/2017 Pneumococcal Vac Conjugate(#7 thru DECEMBER 2009 then #13 thereafter) 01/06/2008 Pneumococcal-13 Vac Conjugate 02/27/2015 Pneumovax 06/22/2010 Tdap (Age 7+) 10/02/2016 Zostavax 01/14/2017 ROS: General: Generally feels short of breath. Appetite good. Weight stable. Eyes, Ears, nose, throat: No post nasal drip, rhinorrhea, purulent nasal discharge, epistaxis. No hoarseness. Vision stable. Cardiac: No angina. Occasional edema left knee and ankle. 2 pillow orthopnea. GI: Occasional heartburn. Dysphagia with pills, uses applesauce to take pills. Uro/LOG CUT OFF SAWYER: Surgically post menopausal. Musculoskeletal: Chronic back pain. Neuro: Chronic daily headache. Dizziness at times. Tremors in hands, right > left. Skin: No rash. Otherwise negative. Allergies were reviewed and updated, and medications were reconciled with the patient. PHYSICAL EXAMINATION: BP 126/72 Pulse 126 Resp 24 SpO2 88% O2: 3 L. Gen: No acute distress. Cooperative with examination. ENT: Oral hygeine and dentition good. Pharynx clear. No halitosis. Resp: No stridor, accessory respiratory muscle use, supra- sternal or intercostal retractions. No wheezes, crackles. CV: Irregular rhythm. Radial pulses normal. Abd: Non distended. MSK: Moderate to severe kyphoscoliosis. Ext: Warm and well perfused. No clubbing, cyanosis, edema. Skin: No rash, ecchymoses. Neuro: Mental status normal. Affect normal. No tremor. DATA REVIEW: DATE: 03/20/18 09/02/16 FVC 1.50 (51 % pred) 1.98 (66 % pred) FEV1 1.11 (49 % pred) 1.66 (71 % pred) + 7% post BD FEV1/FVC 0.74 0.84 TLC 2.81 (59 % pred) VC 1.50 (51 % pred) DLco 9.6 (47 % pred) Oximetry, 03/20/18 InspO2* ? SpO2% ? ? HR Activity ?Feet ?Time ? MPH ?Flag RA ? 85 ? ?121 resting NC2 ?96 ? ?117 resting NC2 ?92 ? ?129 walking, usual pace ? ?184 ?3.00 ? .70 NC2 ?97 ? ?116 resting ? 1 min. post * RA = room air, NC2 = O2 by nasal cannula at 2 LPM, ? ? ?TT2=O2 by trans-tracheal catherter at 2 LPM, etc. CTA, 02/08/18 from [facility] (read only) There is no evidence of pulmonary embolism, aortic aneurysm, or aortic dissection. There are mild chronic changes in both lungs, right greater than left. There is no focal consolidation. There is no pleural effusion. Prominent lymph nodes in the mediastinum are likely reactive. The lymph nodes have decreased in size compared to the prior CT. There is a 1.1 cm opacity in the periphery of the right lower lobe. A follow up CT is recommended in 3 months. IMPRESSION/RECOMMEND: 1. Shortness of breath. No evidence of airflow obstruction on spirometry today. Previously no response to inhaled bronchodilator. Current spirometry indicates restrictive lung disease, which may be secondary to scoliosis (chest wall/neuromuscular) versus Interstitial Lung Disease. Decreased DLCO is suggestive of the latter, ILD. -Order labs and flexible bronchoscopy with biopsy and BAL to further evaluate. Will discuss with Dr. Jacome. Based on oximetry today, you require 2 L supplemental oxygen with rest and exertion. 2. Hypercapnia secondary to untreated PARESH and lung disease. -It is imperative that you wear your BiPAP nightly as directed. -Will investigate if titration study is scheduled. - You have a life threatening condition that requires volume ventilation. Alternatives have been ruled out. Due to the severity of the disease and potential life threatening conditions including CO2 retention due to the probability of acute exacerbation. Patient requires ventilation to be used during the day as needed in addition to q hs usage with a face mask. 3. PARESH. -See above. I addressed the questions of the patient, and she expressed understanding and acceptance of my answers. Lizette Acosta PA-C [facility] [place] [facility] [place] [address] [place] [address] Lizette Acosta PA-C 03/20/2018 12:02 PM Signed 1. Shortness of breath. No evidence of airflow obstruction on spirometry today. Previously no response to inhaled bronchodilator. Current spirometry indicates restrictive lung disease, which may be secondary to scoliosis (chest wall/neuromuscular) versus Interstitial Lung Disease. Decreased DLCO is suggestive of the latter, ILD. -Order labs and flexible bronchoscopy with biopsy and BAL to further evaluate. Based on oximetry today, you require 2 L supplemental oxygen with rest and exertion. 2. Hypercapnia secondary to untreated PARESH and lung disease. -It is imperative that you wear your BiPAP nightly as directed. -Will investigate if titration study is scheduled. - You have a life threatening condition that requires volume ventilation. Alternatives have been ruled out. Due to the severity of the disease and potential life threatening conditions including CO2 retention due to the probability of acute exacerbation. Patient requires ventilation to be used during the day as needed in addition to q hs usage with a face mask. 3. PARESH. -See above. Referring Provider: LIZETTE ACOSTA [[id number]] Allergies As of Date: 03/20/2018 Noted Allergy Reaction ADHESIVE TAPE (ROSINS) 04/04/2015 5 - Intolerance Comments: Surgical tape leaves rash Irritates skin badly and blisters along with medical tape CATS 04/10/2016 14 - Other: See Comments Comments: Congested and itchy, difficulty breathing DOGS 04/10/2016 14 - Other: See Comments Comments: Congestion, sneezing, and difficulty breathing ORPHENADRINE 04/10/2016 16 - Unknown CAPSAICIN 03/02/2018 9 - Itching CIPROFLOXACIN 12/11/2011 14 - Other: See Comments Comments: Red, hot, itchy rash KEFLEX (CEPHALEXIN) 07/10/2016 4 - Hives Comments: Negative skin testing and successful completion of an oral amoxicillin challenge was completed on 03/02/2018. Cephalexin shares an almost identical R1 side chain to amoxicillin; therefore, it is unlikely that she would be at elevated risk for developing an IgE-mediated reaction (allergic/anaphylactic). If she should need this medication in the future, I would recommend giving the first dose in a supervised medical setting. If no reaction after 30 minutes, proceed with regular dosing. NIACIN 04/04/2015 16 - Unknown Comments: Pt states its niacin its niaspan REGLAN (METOCLOPRAMIDE HCL) 03/04/2017 14 - Other: See Comments Comments: Unable to sleep XANTHINES 10/18/2004 16 - Unknown ZOFRAN (ONDANSETRON HCL (PF)) 02/03/2018 9 - Itching Date Reviewed: 03/20/2018 Reviewed by: Lizette Acosta - Fully Assessed Reason for Visit: Established Patient [175] Cmt: shortness of breath Primary Visit Diagnosis:Dyspnea and respiratory abnormalities [R06.00, R06.89] Other Visit Diagnoses:Obesity, Class II, BMI 35-39.9 [E66.9] Cough [R05] Order(s):CBC + DIFF [SQCBCDIF] Order #: [id number] FUTURE COMP METABOLIC PANEL [SQCMP] Order #: [id number] FUTURE HEPATIC FUNCTION PNL [SQHFP] Order #: [id number] FUTURE ALDOLASE BLD [SQALD] Order #: [id number] FUTURE BURT PANEL BLOOD SCRN [SQANA1] Order #: [id number] FUTURE RHEUMATOID FACTOR BL [SQRF] Order #: [id number] FUTURE C-REACTIVE PROTEIN (CRP) [SQCRP] Order #: [id number] FUTURE SED RATE WESTERGREN [SQWSR] Order #: [id number] FUTURE CK CREATINE KINASE [SQCK] Order #: [id number] FUTURE ANTI NEUTRO CYTO AB [SQANCA] Order #: [id number] FUTURE SCLERODERMA IGG AB [SQSCL70] Order #: [id number] FUTURE BRONCHOSCOPY [[id number]] Order #: [id number] FUTURE ANTI LEODAN ID [SQENAID] Order #: [id number] FUTURE Prescriptions as of 03/20/2018 Sig: OMEPRAZOLE 20 MG CAPSULE,MARIA EUGENIA* Take 1 capsule by mouth once * INSULIN GLARGINE (U-100) 100 * Inject 56 Units subcutaneousl* INSULIN LISPRO (U-200) 200 UN* Inject subcutaneously 14 unit* METOPROLOL TARTRATE 100 MG TA* TAKE 1 TABLET BY MOUTH TWICE * DULOXETINE 60 MG CAPSULE,MARIA EUGENIA* TAKE 1 CAPSULE BY MOUTH DAILY METFORMIN ER 500 MG TABLET,EX* TAKE 2 TABLETS BY MOUTH TWICE* PROMETHAZINE 25 MG TABLET Take 1 tablet by mouth every * ASPIRIN 81 MG TABLET,DELAYED * TAKE 1 TABLET BY MOUTH EVERY * STOOL SOFTENER 100 MG CAPSULE TAKE 1 CAPSULE BY MOUTH DAILY PSEUDOEPHEDRINE-GUAIFENESIN E* Take 1 tablet by mouth twice * ESTRADIOL 0.01% (0.1 MG/GRAM)* Apply pea-sized amount to per* INSULIN GLARGINE (U-100) 100 * Inject 56 units subcutaneousl* MUPIROCIN 2 % TOPICAL OINTMENT Apply 1 application to affect* LYRICA 100 MG CAPSULE TAKE 1 CAPSULE BY MOUTH THREE* CAPSAICIN 0.075 % TOPICAL CRE* Apply 1 application to affect* VITAMIN C 500 MG TABLET TAKE 1 TABLET BY MOUTH DAILY FERROUS GLUCONATE 324 MG (38 * TAKE 1 TABLET BY MOUTH DAILY * ISOSORBIDE MONONITRATE ER 60 * Take 1.5 tablets by mouth onc* ATORVASTATIN 40 MG TABLET TAKE 1 TABLET BY MOUTH DAILY DILTIAZEM SR 180 MG 24 HR CAP TAKE 1 CAPSULE BY MOUTH EVERY* LEVOTHYROXINE 100 MCG TABLET TAKE 1 TABLET BY MOUTH EVERY * ELIQUIS 2.5 MG TABLET TAKE 1 TABLET BY MOUTH TWICE * NITROGLYCERIN 0.4 MG SUBLINGU* DISSOLVE 1 TAB UNDER THE TONG* GLUCOSE 4 GRAM CHEWABLE TABLET Take 4 tablets by mouth as ne* FLUTICASONE 50 MCG/ACTUATION * Use 2 Sprays in each nostril * FUROSEMIDE 40 MG TABLET Take 1 tablet by mouth twice * ALBUTEROL SULFATE HFA 90 MCG/* Inhale 2 Puffs as instructed * CLAUDIA-KYLE 8.6 MG TABLET TAKE 1 TABLET BY MOUTH TWICE * COMPOUNDED PRESCRIPTION Please fit for BiPAP mask. ONETOUCH ULTRA BLUE TEST STRIP USE DIRECTED TO CHECK BLOO* ONETOUCH DELICA LANCETS 30 GA* USE TO CHECK BLOOD SUGAR 4-5 * BIPAP Bilevel PAP 15/11 cmH2O with * COMPOUNDED PRESCRIPTION OCD Titration for portable ox* ULTICARE PEN NEEDLE 31 GAUGE * USE DIRECTED. TO INJECT IN* OXYGEN (HOME THERAPY) Inhale 3 L/min as instructed * COMPOUNDED PRESCRIPTION Evaluation for diabetic shoes* INCONTINENCE PAD, LINER, DISP* 1 Device as needed (urinary i* COMPOUNDED PRESCRIPTION BLOOD PRESSURE CUFF FOR HOME * BLOOD-GLUCOSE METER KIT UAD to test blood sugar ALCOHOL SWABS UAD to clean skin before test* Problem List As Of Date 03/20/2018 Noted Resolved SUBJECTIVE TINNITUS [H93.19] INVALID FOR* PARESH treated with BiPAP [G47.33] INVALID FOR* Hyperlipidemia [E78.5] INVALID FOR* Coronary disease [I25.10] INVALID FOR* Diabetes mellitus, type II (HCC) [E11.9] INVALID FOR* Morbid obesity ([facility]) [E66.01] Hypothyroidism [E03.9] Anxiety [F41.9] Sleep apnea [G47.30] 02/14/2017 Essential hypertension [I10] Coronary artery disease of [place] artery of stoney* AF (paroxysmal atrial fibrillation) ([facility]) [I48.* COPD (chronic obstructive pulmonary disease) (H* GERD without esophagitis [K21.9] Dysphagia [R13.10] Constipation [K59.00] DM type 2 (diabetes mellitus, type 2) ([facility]) [E1* 02/14/2017 Shortness of breath [R06.02] 02/14/2017 Arthritis [M19.90] More... CHF (congestive heart failure) ([facility]) [I50.9] BPPV (benign paroxysmal positional vertigo) [H8*INVALID FOR* RLS (restless legs syndrome) [G25.81] INVALID FOR* Iron deficiency concern: RE RLS [E61.1] INVALID FOR* Tubular adenoma [D36.9] INVALID FOR* Incontinence [R32] More... Gastroparesis [K31.84] INVALID FOR* Pre-op testing [Z01.818] INVALID FOR* More... Hypercapnia [R06.89] INVALID FOR* S/P coronary artery stent placement [Z95.5] INVALID FOR* Stage 3 chronic kidney disease [N18.3] INVALID FOR* Depression [F32.9] INVALID FOR* Obesity, Class II, BMI 35-39.9 [E66.9] INVALID FOR* Other instructions from your clinician: 1. Shortness of breath. No evidence of airflow obstruction on spirometry today. Previously no response to inhaled bronchodilator. Current spirometry indicates restrictive lung disease, which may be secondary to scoliosis (chest wall/neuromuscular) versus Interstitial Lung Disease. Decreased DLCO is suggestive of the latter, ILD. -Order labs and flexible bronchoscopy with biopsy and BAL to further evaluate. Based on oximetry today, you require 2 L supplemental oxygen with rest and exertion. 2. Hypercapnia secondary to untreated PARESH and lung disease. -It is imperative that you wear your BiPAP nightly as directed. -Will investigate if titration study is scheduled. - You have a life threatening condition that requires volume ventilation. Alternatives have been ruled out. Due to the severity of the disease and potential life threatening conditions including CO2 retention due to the probability of acute exacerbation. Patient requires ventilation to be used during the day as needed in addition to q hs usage with a face mask. 3. PARESH. -See above. Visit Notes: >> Katja Campoverde FIRE BOSS FriMar 20, 2018 10:55 AM Status: Signed Intake information documented in the prior visit with Maryann Barfield CURB WORKER today. Medications Discontinued During This Encounter pantoprazole (PROTONIX) 40 mg/20 mL 1200* 0 01/31/2018 03/20/2018 Class: Print RX Route: ORAL Sig: Take 20 mL by mouth twice daily before meals (0600/1600). Patient not taking: Reported on 03/02/2018 Disc: Course of therapy completed Disposition: Return in about 6 weeks (around 05/01/2018). Follow-up and Disposition History Recorded Encounter Status:Closed by LIZETTE ACOSTA on 03/20/18 PROGRESS Observed: 03/20/2018 Status: COMPLETED Source: RUSSELL 11:01 AM [facility] REPOSITORY O ID: [id number] Author: Lizette Acosta Service: (none) Author Type: Physician Plant Controls Specialist Type: Progress Notes Filed: 03/20/2018 12:04 PM Note Text: [facility] [place], 03/20/18: HPI: Tamia Panda is a 62 year old female who presents here today secondary to shortness of breath. PMH: PARESH, noncompliant, PE, Hypothyroidism, Hyperlipidemia, GERD, HTN, DM, CAD. Former smoker, quit 2006. 28 pack years. The last Pulmonary Clinic visit was 01/22/18. Patient admitted to [facility] on 2 separate occasions secondary to delirium, hypercapnia, COPD exacerbation, and uncontrolled PARESH. Admitted 02/03 to 02/05 for hypercapnia and COPD exacerbation. Returned to ED on 02/06 with progressive SOB and admitted until 02/11. Occasionally short of breath when sitting. LUZ with walking to bathroom and returning to wheelchair. Uses shower chair. Becomes short of breath easily with daily ADLs. Has nurses aid coming to home. Minimal cough, mostly non productive, no hemoptysis. No pleuritic chest pain. No wheezing. Currently not wearing BiPAP. I have to go for another sleep study. States her titration study was cancelled by [facility]. Wears 3 L supplemental oxygen continuously. DME: Yani Nogueira. PMH: Updated with patient today. FAMH: Updated with patient today. SOCH: Updated with patient today. Immunization History Administered Date(s) Administered Influenza Seasonal Inj Age 3+ 07/04/2014 07/16/2015 Influenza Seasonal Inj Quadrivalent Age 3+ 06/19/2017 Pneumococcal Vac Conjugate(#7 thru DECEMBER 2009 then #13 thereafter) 01/06/2008 Pneumococcal-13 Vac Conjugate 02/27/2015 Pneumovax 06/22/2010 Tdap (Age 7+) 10/02/2016 Zostavax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 blood sugars during this period of reporting Yes Patient's diabetes medications as follows: insulin lispro (HUMALOG KWIKPEN INSULIN) 200 unit/mL Inject subcutaneously 14 units with breakfast, 22 units with lunch, and 24 units with dinner insulin glargine (LANTUS SOLOSTAR U-100 INSULIN) 100 unit/mL Inject 56 Units subcutaneously twice daily. Inject 56 units subcutaneously twice daily metFORMIN ER (GLUCOPHAGE XR) 500 mg Take 2 tablets by mouth twice daily. Cleaning Supervisor plan for next outreach: Will follow up 3-5 days Signature Saad Silvestre RN March 03, 2018 CNPTOUTREACH Observed: 03/03/2018 Status: COMPLETED Source: RUSSELL 12:00 AM [facility] REPOSITORY Patient Outreach (FAMPWS) TAMIA PANDA ([id number]) 1955 F Date Time Provider Department 03/03/18 SAAD SILVESTRE (RN) KENDRICKWS During your visit today, we recorded the following information about you: Saad Silvestre RN 03/03/2018 9:39 AM Signed PRIMARY CARE COORDINATION FOLLOW-UP NOTE Provider Action/FYI Feeling very bloated after eating/drinking. [facility]. States it may take up to 3 mos to feel better after her procedure was done. No chest pain VS at home BP 127/73 P-89 and 116/62 P-93 Please note BS below. Pt took two glucose tabs for low BS then eats. Did not recheck BS after 15 min. Instructed to check after 15 min to make sure BS is coming up, verbalized understanding. Pt couldn't remember her mealtime insulin dose. Instructed on correct dose and had pt write down then verbalize by teach back. Patient identified by name and date of . YES Spoke to patient Summary: Tamia Panda is a 63 year old female who reports glucose readings as noted. DATE 03/03 03/02 03/01 02/28 02/27 02/26 Fasting 146 195 45 62 121 385 Afternoon 200 Evening 258 54 114 177 Any low blood sugars during this period of reporting Yes Patient's diabetes medications as follows: insulin lispro (HUMALOG KWIKPEN INSULIN) 200 unit/mL Inject subcutaneously 14 units with breakfast, 22 units with lunch, and 24 units with dinner insulin glargine (LANTUS SOLOSTAR U-100 INSULIN) 100 unit/mL Inject 56 Units subcutaneously twice daily. Inject 56 units subcutaneously twice daily metFORMIN ER (GLUCOPHAGE XR) 500 mg Take 2 tablets by mouth twice daily. Cleaning Supervisor plan for next outreach: Will follow up 3-5 days Signature Saad Silvestre RN March 03, 2018 Allergies As of Date: 03/03/2018 Noted Allergy Reaction ADHESIVE TAPE (ROSINS) 04/04/2015 5 - Intolerance Comments: Surgical tape leaves rash Irritates skin badly and blisters along with medical tape CATS 04/10/2016 14 - Other: See Comments Comments: Congested and itchy, difficulty breathing DOGS 04/10/2016 14 - Other: See Comments Comments: Congestion, sneezing, and difficulty breathing ORPHENADRINE 04/10/2016 16 - Unknown CAPSAICIN 03/02/2018 9 - Itching CIPROFLOXACIN 12/11/2011 14 - Other: See Comments Comments: Red, hot, itchy rash KEFLEX (CEPHALEXIN) 07/10/2016 4 - Hives Comments: Negative skin testing and successful completion of an oral amoxicillin challenge was completed on 03/02/2018. Cephalexin shares an almost identical R1 side chain to amoxicillin; therefore, it is unlikely that she would be at elevated risk for developing an IgE-mediated reaction (allergic/anaphylactic). If she should need this medication in the future, I would recommend giving the first dose in a supervised medical setting. If no reaction after 30 minutes, proceed with regular dosing. 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 Chronic Care [4668] Prescriptions as of 03/03/2018 Sig: PROMETHAZINE 25 MG TABLET Take 1 tablet by mouth every * METOPROLOL TARTRATE 100 MG TA* TAKE 1 TABLET BY MOUTH TWICE * ASPIRIN 81 MG TABLET,DELAYED * TAKE 1 TABLET BY MOUTH EVERY * INSULIN GLARGINE (U-100) 100 * Inject 56 Units subcutaneousl* Patient not taking: Reported on 03/02/2018 CLAUDIA-KYLE 8.6 MG TABLET TAKE 1 TABLET BY MOUTH TWICE * STOOL SOFTENER 100 MG CAPSULE TAKE 1 CAPSULE BY MOUTH DAILY PREDNISONE 10 MG TABLET Take 40 mg x 5 days, 20 mg x * Patient not taking: Reported on 03/02/2018 PSEUDOEPHEDRINE-GUAIFENESIN E* Take 1 tablet by mouth twice * PANTOPRAZOLE ORAL LIQUID 40 M* Take 20 mL by mouth twice cady* Patient not taking: Reported on 03/02/2018 ESTRADIOL 0.01% (0.1 MG/GRAM)* Apply pea-sized amount to per* COMPOUNDED PRESCRIPTION Please fit for BiPAP mask. ONETOUCH ULTRA BLUE TEST STRIP USE DIRECTED TO CHECK BLOO* ONETOUCH DELICA LANCETS 30 GA* USE TO CHECK BLOOD SUGAR 4-5 * INSULIN GLARGINE (U-100) 100 * Inject 56 units subcutaneousl* BIPAP Bilevel PAP 15/11 cmH2O with * COMPOUNDED PRESCRIPTION OCD Titration for portable ox* MUPIROCIN 2 % TOPICAL OINTMENT Apply 1 application to affect* Patient not taking: Reported on 03/02/2018 INSULIN LISPRO (U-200) 200 UN* Inject subcutaneously 14 unit* Patient taking differently: 14 Units. Inject subcutaneous* LYRICA 100 MG CAPSULE TAKE 1 CAPSULE BY MOUTH THREE* CAPSAICIN 0.075 % TOPICAL CRE* Apply 1 application to affect* Patient not taking: Reported on 03/02/2018 ULTICARE PEN NEEDLE 31 GAUGE * USE DIRECTED. TO INJECT IN* VITAMIN C 500 MG TABLET TAKE 1 TABLET BY MOUTH DAILY FERROUS GLUCONATE 324 MG (38 * TAKE 1 TABLET BY MOUTH DAILY * ISOSORBIDE MONONITRATE ER 60 * Take 1.5 tablets by mouth onc* ATORVASTATIN 40 MG TABLET TAKE 1 TABLET BY MOUTH DAILY DILTIAZEM SR 180 MG 24 HR CAP TAKE 1 CAPSULE BY MOUTH EVERY* LEVOTHYROXINE 100 MCG TABLET TAKE 1 TABLET BY MOUTH EVERY * ELIQUIS 2.5 MG TABLET TAKE 1 TABLET BY MOUTH TWICE * NITROGLYCERIN 0.4 MG SUBLINGU* DISSOLVE 1 TAB UNDER THE TONG* GLUCOSE 4 GRAM CHEWABLE TABLET Take 4 tablets by mouth as ne* OXYGEN (HOME THERAPY) Inhale 3 L/min as instructed * FLUTICASONE 50 MCG/ACTUATION * Use 2 Sprays in each nostril * METFORMIN ER 500 MG TABLET,EX* Take 2 tablets by mouth twice* DULOXETINE 60 MG CAPSULE,MARIA EUGENIA* Take 1 capsule by mouth once * FUROSEMIDE 40 MG TABLET Take 1 tablet by mouth twice * ALBUTEROL SULFATE HFA 90 MCG/* Inhale 2 Puffs as instructed * COMPOUNDED PRESCRIPTION Evaluation for diabetic shoes* INCONTINENCE PAD, LINER, DISP* 1 Device as needed (urinary i* COMPOUNDED PRESCRIPTION BLOOD PRESSURE CUFF FOR HOME * BLOOD-GLUCOSE METER KIT UAD to test blood sugar ALCOHOL SWABS UAD to clean skin before test* Problem List As Of Date 03/03/2018 Noted Resolved SUBJECTIVE TINNITUS [H93.19] INVALID FOR* PARESH treated with BiPAP [G47.33] INVALID FOR* Hyperlipidemia [E78.5] INVALID FOR* Coronary disease [I25.10] INVALID FOR* Diabetes mellitus, type II ([facility]) [E11.9] INVALID FOR* Morbid obesity ([facility]) [E66.01] Hypothyroidism [E03.9] Anxiety [F41.9] Sleep apnea [G47.30] 02/14/2017 Essential hypertension [I10] Coronary artery disease of [place] artery of [place]* AF (paroxysmal atrial fibrillation) ([facility]) [I48.* COPD (chronic obstructive pulmonary disease) (H* GERD without esophagitis [K21.9] Dysphagia [R13.10] Constipation [K59.00] DM type 2 (diabetes mellitus, type 2) ([facility]) [E1* 02/14/2017 Shortness of breath [R06.02] 02/14/2017 Arthritis [M19.90] More... CHF (congestive heart failure) ([facility]) [I50.9] BPPV (benign paroxysmal positional vertigo) [H8*INVALID FOR* RLS (restless legs syndrome) [G25.81] INVALID FOR* Iron deficiency concern: RE RLS [E61.1] INVALID FOR* Tubular adenoma [D36.9] INVALID FOR* Incontinence [R32] More... Gastroparesis [K31.84] INVALID FOR* Pre-op testing [Z01.818] INVALID FOR* More... Hypercapnia [R06.89] INVALID FOR* S/P coronary artery stent placement [Z95.5] INVALID FOR* Stage 3 chronic kidney disease [N18.3] INVALID FOR* Depression [F32.9] INVALID FOR* Encounter Status:Closed by SAAD SILVESTRE on 03/03/18 PROGRESS Observed: 03/02/2018 Status: COMPLETED Source: RUSSELL 3:13 PM [facility] REPOSITORY O ID: [id number] Author: Katja Joshi RN Service: (none) Author Type: (none) Type: Progress Notes Filed: 03/02/2018 5:16 PM Note Text: ANTIBIOTIC PERCUTANEOUS AND INTRADERMAL SKIN TESTING/ Mean Wheal AND Flare Diameter (mm) Patient has been identified by name and date of : Yes . Skin test applied by : Katja Johsi RN Interpreted By: Yanira Lopez M.D. * Clinical significant reactions are regarded as a wheal diameter greater than or equal to 3 mm with a flare diameter greater or equal to 6mm. Time Prick test applied: 2:15 PM Time Intradermal test applied: 2:40 PM Time Prick test read: 2:30 PM Time Intradermal test read: 2:55 PM ALLERGENS 1. CONTROL Normal Saline P: W = 0 mm F = 0 mm ID:W = 0 mm F = 0 mm 2. PENICILLIN GK 10,000 UNITS/ML (Lot #[id number] 2018-01) P: W = 0 mm F = 0 mm ID: W = 0 mm F = 0 mm 3. PREPEN -(benzylpenicilloyl polylysine) full strength (Lot ALK [id number] 08/10) P: W = 0 mm F = 0mm ID: W = 0 mm F = 0 mm 4. AMPICILLIN SODIUM 12.5mg/ml (Lot [id number] 05/10) P: W = 0 mm F = 0mm ID: W = 0 mm F = 0 mm 5. HISTAMINE- positive control (Histamine base 6mg/ml)for Prick and 0.1 mg/ml for intradermal P: W = 2 mm F = 5 mm ID:W = 10 mm F = 20 mm Amoxicillin Oral Challenge 3:07 PM Informed consent for Amoxicillin oral challenge obtained per Sarah Flores CNP. Amoxicillin ([facility] lot [id number], exp. 09/2019) 250 mg/5 ml oral suspension po given per Sarah Flores' orders. 3:37 PM Pt. without signs or symptoms of allergic reaction. Katja Joshi RN PROGRESS Observed: 03/02/2018 Status: COMPLETED Source: RUSSELL 1:34 PM [facility] REPOSITORY O ID: [id number] Author: Sarah Flores Service: (none) Author Type: Nurse Practitioner Type: Progress Notes Filed: 03/02/2018 5:16 PM Note Text: This is a self referral for an opinion regarding penicillin allergy. Tamia Panda is a 63 year old female who had symptoms of a red, itchy skin rash upon treatment with penicillin approximately 20 years ago. She is unable to recall any further details regarding the reaction including what she was being treated for and when into the course of therapy the reaction occurred. She denies shortness of breath and swelling of the lips, tongue, or throat. No treatment was provided. She has avoided penicillin since. History of cephalexin allergy. Patient is a poor historian. States that 20 years ago while in the emergency room (unable to remember why) she was prescribed cephalexin and another unknown medication at the same time. Shortly after taking, she developed stomach pain and chest discomfort. States that she thought she was having a heart attack. She returned to the emergency room and both medications were discontinued and symptoms resolved. States that her cardiac workup was negative. No other treatment was provided and she has avoided cephalexin since. Recently had a POP procedure for the treatment of gastropareisis on 01/30/2018. Endorses slight nausea, which has improved since surgery. History of COPD. On home O2, 3L NC. Endorses intermittent shortness of breath, cough, and wheeze. Uses albuterol nebulizer 1-2 times per day, which she states is an improvement, as she used to use it 3-4 times per day. She follows with pulmonary who recently ordered lung volumes, oximetry trend, and spirometry, which are scheduled to be done tomorrow. ALLERGIES Allergen Reactions - Adhesive Tape (Adrienne* Intolerance Surgical tape leaves rash Irritates skin badly and blisters along with medical tape - Cats Other: See Comments Congested and itchy, difficulty breathing - Dogs Other: See Comments Congestion, sneezing, and difficulty breathing - Orphenadrine Unknown - Capsaicin Itching - Ciprofloxacin Other: See Comments Red, hot, itchy rash - Keflex [Cephalexin] Hives - Niacin Unknown Pt states its niacin its niaspan - Penicillin G - Penicillins Unknown - Reglan [Metoclopram* Other: See Comments Unable to sleep - Xanthines Unknown - Zofran [Ondansetron* Itching PAST MEDICAL HISTORY Diagnosis Date - Acute chronic obstructive pulmonary disease with respiratory failure ([facility]) - AF (paroxysmal atrial fibrillation) ([facility]) - Anxiety - Arthritis Seeing Dr Elliott - Cervical cancer ([facility]) hysterectomy - CHF (congestive heart failure) ([facility]) - Chronic back pain Seeing Dr. Wallace - Constipation - COPD (chronic obstructive pulmonary disease) ([facility]) - Coronary atherosclerosis of [place] lions coronary artery Previously seeing Dr. Sosa - DDD (degenerative disc disease), lumbar - DM type 2 (diabetes mellitus, type 2) ([facility]) Seeing Dr. Foley for podiatry - DVT (deep venous thrombosis) ([facility]) Post op INA, BSO. - Dysphagia Seeing Dr. Baggot - Emphysema lung ([facility]) - Essential hypertension - Functional dyspepsia - Gastroparesis 2017 mild - GERD without esophagitis - Headache - History of colon polyps 11/28/2016 - Hyperlipidemia - Hypothyroidism - Incontinence Seeing Dr. Chapman - Morbid obesity ([facility]) - Muscle weakness - Nausea - PARESH on CPAP [facility], no longer using as of 10/2017, was not compliant - PE (pulmonary thromboembolism) ([facility]) Post op INA/BSO. - Pneumonia - RLS (restless legs syndrome) - Shortness of breath - Sleep apnea using oxygen currently, not on CPAP - Unsteadiness on feet - Wheezing PAST SURGICAL HISTORY Procedure Laterality Date - CHOLECYSTECTOMY - COLONOS W/REM POLYP SNARE 11/28/2016 Repeat 2019 - COLONOSCOPY Has had multiple in the past with polyps, cannot remember dates - EGD W/O BRSH SPECIMEN W/BX 11/28/2016 - HERNIA REPAIR HX multiple - KNEE SURGERY HX Left x3 for torn cartilage - NASAL SURGERY PROCEDURE sinus - TOTAL ABDOM HYSTERECTOMY 1987 Cervical cancer - TUBAL LIGATION HX - WRIST SURGERY HX Right ganglion cyst removal x2 FAMILY HISTORY Problem Relation Age of Onset - Coronary Artery Disease Mother - Coronary Artery Disease Father - Asthma Brother - Coronary Artery Disease Brother - Diabetes Sister - Hypertension Sister - Diabetes Sister - Heart Sister - Allergies Sister - Asthma Sister - Allergies Sister - Emphysema Sister Early stages - COPD Paternal Uncle Social History Marital status: Spouse name: Years of education: Number of children: Occupational History 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 Social History Main Topics Smoking status: Former Smoker Packs/day: 1.00 Years: 28.00 Types: Cigarettes Start date: 1978 Quit date: 09/22/2005 Smokeless tobacco: Never Used Comment: Father smoked in childhood. 2nd spouse smoked in home. Alcohol use: No Drug use: No Sexual activity: No Social History Narrative 1 year in current home. No basement, 1 parakeet. Room A/C. Electric baseboard heat. Current Outpatient Prescriptions on File Prior to Visit: promethazine (PHENERGAN) 25 mg tablet Take 1 tablet by mouth every 6 hours as needed. metoprolol tartrate, short acting, (LOPRESSOR) 100 mg tablet TAKE 1 TABLET BY MOUTH TWICE A DAY aspirin, enteric coated (ASPIRIN, ENTERIC COATED) 81 mg EC tablet TAKE 1 TABLET BY MOUTH EVERY MORNING CLAUDIA-KYLE 8.6 mg tab TAKE 1 TABLET BY MOUTH TWICE A DAY STOOL SOFTENER 100 mg capsule TAKE 1 CAPSULE BY MOUTH DAILY Pseudoephedrine-guaiFENesin (MUCINEX D MAXIMUM STRENGTH) 120- 1,200 mg Tb12 Take 1 tablet by mouth twice daily. estradiol (ESTRACE) 0.01 % (0.1 mg/gram) vaginal cream Apply pea-sized amount to perineum and 1 applicator vaginally Mon, Wed, Fri for atrophic vaginitis. COMPOUNDED PRESCRIPTION Please fit for BiPAP mask. ONETOUCH ULTRA BLUE TEST STRIP test strip USE DIRECTED TO CHECK BLOOD SUGAR 4-5 TIMES DAILY ONETOUCH DELICA LANCETS 30 gauge misc USE TO CHECK BLOOD SUGAR 4-5 TIMES DALIY insulin glargine (LANTUS SOLOSTAR U-100 INSULIN) 100 unit/mL (3 mL) inpn Inject 56 units subcutaneously twice daily BIPAP Bilevel PAP 15/11 cmH2O with 2 LPM oxygen bleed in, mask, tubing, filters, heated humidity, lifetime supplies. Please fax 30 day compliance download to [phone]. Dx: G47.33, G47.39. DME: [facility] COMPOUNDED PRESCRIPTION OCD Titration for portable oxygen concentrator Oxygen Flow Rate between 2-6 liters. To keep oxygen saturation at or above 92%. insulin lispro (HUMALOG KWIKPEN INSULIN) 200 unit/mL (3 mL) injection Inject subcutaneously 14 units with breakfast, 22 units with lunch, and 24 units with dinner (Patient taking differently: 14 Units. Inject subcutaneously 14 units with breakfast, 22 units with lunch, and 24 units with dinner ) LYRICA 100 mg capsule TAKE 1 CAPSULE BY MOUTH THREE TIMES A DAY ULTICARE PEN NEEDLE 31 gauge x 516 ndle USE DIRECTED. TO INJECT INSULINS VITAMIN C 500 mg tablet TAKE 1 TABLET BY MOUTH DAILY Ferrous Gluconate (FERGON) 324 mg (38 mg iron) tablet TAKE 1 TABLET BY MOUTH DAILY WITH BREAKFAST isosorbide mononitrate ER (IMDUR) 60 mg 24 hr tablet Take 1.5 tablets by mouth once daily. In the morning atorvastatin (LIPITOR) 40 mg tablet TAKE 1 TABLET BY MOUTH DAILY diltiazem CD (CARDIZEM CD, CARTIA XT) 180 mg 24 hr capsule TAKE 1 CAPSULE BY MOUTH EVERY MORNING levothyroxine (SYNTHROID) 100 mcg tablet TAKE 1 TABLET BY MOUTH EVERY MORNING ELIQUIS 2.5 mg tab tab(s) TAKE 1 TABLET BY MOUTH TWICE A DAY nitroglycerin sublingual (NITROQUICK) 0.4 mg SL tablet DISSOLVE 1 TAB UNDER THE TONGUE NEEDED FOR CHEST PAIN EVERY 5 MINUTES UP TO 3 TIMES. IF NO RELIEF CALL 911. glucose 4 gram chewable tablet Take 4 tablets by mouth as needed for Low Blood Sugar. OXYGEN, HOME THERAPY, Inhale 3 L/min as instructed as directed. fluticasone (FLONASE) 50 mcg/actuation nasal spray Use 2 Sprays in each nostril once daily. metFORMIN ER (GLUCOPHAGE XR) 500 mg 24 hr tablet Take 2 tablets by mouth twice daily. DULoxetine (CYMBALTA) 60 mg capsule Take 1 capsule by mouth once daily. furosemide (LASIX) 40 mg tablet Take 1 tablet by mouth twice daily. albuterol HFA (VENTOLIN HFA) 90 mcg/actuation inhaler Inhale 2 Puffs as instructed every 4 hours as needed for Wheezing/Shortness of Breath. COMPOUNDED PRESCRIPTION Evaluation for diabetic shoes and inserts Dx: E11.65, Z79.4 Incontinence Pad, Liner, Disp pads 1 Device as needed (urinary incontinence). Prevail incontinence pads. Dx: urinary incontinence. Size: small Blood Pressure Cuff - Home Use BLOOD PRESSURE CUFF FOR HOME USE. DX: LABILE BLOOD PRESSURE Blood-Glucose Meter (ONETOUCH ULTRA2) monitoring kit UAD to test blood sugar Alcohol Swabs padm UAD to clean skin before testing blood sugar and injecting insulins. insulin glargine (LANTUS SOLOSTAR U-100 INSULIN) 100 unit/mL (3 mL) inpn Inject 56 Units subcutaneously twice daily. Inject 56 units subcutaneously twice daily (Patient not taking: Reported on 03/02/2018 ) predniSONE (DELTASONE) 10 mg tablet Take 40 mg x 5 days, 20 mg x 5 days, 10 mg x 5 days. Take with food (Patient not taking: Reported on 03/02/2018 ) pantoprazole (PROTONIX) 40 mg/20 mL Take 20 mL by mouth twice daily before meals (0600/1600). (Patient not taking: Reported on 03/02/2018 ) mupirocin (BACTROBAN) 2 % ointment Apply 1 application to affected area three times daily. (Patient not taking: Reported on 03/02/2018 ) capsaicin (ZOSTRIX-HP) 0.075 % topical cream Apply 1 application to affected area four times daily. (Patient not taking: Reported on 03/02/2018 ) No current facility-administered medications on file prior to visit. Review of Systems: CONSTITUTIONAL: no fever, chills, night sweats HEENT: no eye itching or watering, no nasal congestion or rhinorrhea RESPIRATORY: see HPI CARDIOVASCULAR: no chest pain, palpitations GASTROINTESTINAL: + nausea (see HPI), no vomiting, or diarrhea, no heartburn or reflux symptoms NEUROLOGICAL: no headaches HEMATOLOGIC/LYMPHATIC: no lymphadenopathy MUSCULOSKELETAL: no joint pain, no joint swelling INTEGUMENTARY: no lesions, rashes, hives, eczema Physical Examination: BP (!) 108/48 (BP Site: Right Arm, BP Position: Sitting, BP Cuff Size: Large Adult) Pulse 85 Temp 36.6 ?C (97.9 ?F) (Temporal Artery) Resp 20 Ht 157.5 cm (5' 2) Wt 95.7 kg (211 lb) SpO2 99% BMI 38.59 kg/m? CONSTITUTIONAL: well-appearing, alert, in no acute distress, well-hydrated, well-nourished EYES: conjunctiva non-injected, anicteric sclera, pupils are equally round and reactive to light EARS: external ears normal, canals clear, TM's intact NOSE/SINUSES: blood present in bilateral nasal passages, appears to have a perforated nasal septum OROPHARYNX: lips, mucosa, and tongue normal, teeth and gums normal, oropharynx normal NECK: supple, no adenopathy RESPIRATORY: lungs clear to auscultation, no wheezing, rhonchi, rales CARDIOVASCULAR: irregular rate/rhythm (history of afib), no murmur, gallop, or rubs, no edema GASTROINTESTINAL: abdomen soft, non-tender, bowel sounds normal INTEGUMENTARY: skin color, texture, turgor normal, no visible rashes or lesions Diagnostic Testing: - Skin testing performed percutaneously and intradermally to penicillin G, PrePen, and ampicillin. Results were negative. - Oral amoxicillin challenge completed. Consent obtained. Observed for 30 minutes with no reaction. Assessment/Plan: 1. History of penicillin allergy (reaction was rash): - The patient has no evidence of penicillin-specific reaction by skin testing to penicillin G, PrePen, and ampicillin, as well as successful completion of an oral amoxicillin 250mg/ml challenge. This suggests that she is not at increased risk for an IgE-mediated (allergic/anaphylactic) reaction from penicillin/penicillin-like drugs compared with the general population. On this basis, she may receive beta lactam antibiotics as clinically indicated. The patient is still at risk for a non- IgE mediated reaction including SJS/TEN, serum sickness, or adverse effects of penicillin or penicillin-like drugs, as these tests do not predict the potential for these reactions. In addition, this evaluation does not rule out development of IgE sensitization upon exposure to beta lactams in the future. Their risk for developing a kqq-AdG-ckssjtiq reaction, a delayed reaction, or adverse drug reaction is the same as it would be for the general population. - In regards to her history of cephalexin allergy, if she should need this medication in the future, I would recommend giving the first dose in a supervised medical setting. If no reaction after 30 minutes, you may proceed with regular dosing. 2. Possible nasal septum perforation: - Consult ENT for further evaluation and management. 3. COPD: - Managed by pulmonary. Follow-up appointment scheduled on 03/05/2018. - Continue current regimen as previously prescribed. - Lung volumes, oximetry trend, and spirometry scheduled to be done tomorrow 03/03/2018. Sarah Flores APRN.[facility] Department of Allergy AND Clinical Immunology #[id number] CNOV Observed: 03/02/2018 Status: COMPLETED Source: [place] 12:50 PM [facility] REPOSITORY Office Visit (ALLEMN) TAMIA PANDA ([id number]) 1955 F Date Time Provider Department 03/02/18 12:50 PM SARAH FLORES ([facility]) DACIA During your visit today, we recorded the following information about you: Temperature Pulse Respiration Blood pressure 97.9 degrees 85/minute 20/minute 108/48 Weight Height 95.7 kg 1.575 m Sarah Flores APRN.DATA INPUT CLERK 03/02/2018 5:16 PM Signed This is a self referral for an opinion regarding penicillin allergy. Tamia Panda is a 63 year old female who had symptoms of a red, itchy skin rash upon treatment with penicillin approximately 20 years ago. She is unable to recall any further details regarding the reaction including what she was being treated for and when into the course of therapy the reaction occurred. She denies shortness of breath and swelling of the lips, tongue, or throat. No treatment was provided. She has avoided penicillin since. History of cephalexin allergy. Patient is a poor historian. States that 20 years ago while in the emergency room (unable to remember why) she was prescribed cephalexin and another unknown medication at the same time. Shortly after taking, she developed stomach pain and chest discomfort. States that she thought she was having a heart attack. She returned to the emergency room and both medications were discontinued and symptoms resolved. States that her cardiac workup was negative. No other treatment was provided and she has avoided cephalexin since. Recently had a POP procedure for the treatment of gastropareisis on 01/30/2018. Endorses slight nausea, which has improved since surgery. History of COPD. On home O2, 3L NC. Endorses intermittent shortness of breath, cough, and wheeze. Uses albuterol nebulizer 1-2 times per day, which she states is an improvement, as she used to use it 3-4 times per day. She follows with pulmonary who recently ordered lung volumes, oximetry trend, and spirometry, which are scheduled to be done tomorrow. ALLERGIES Allergen Reactions - Adhesive Tape (Adrienne* Intolerance Surgical tape leaves rash Irritates skin badly and blisters along with medical tape - Cats Other: See Comments Congested and itchy, difficulty breathing - Dogs Other: See Comments Congestion, sneezing, and difficulty breathing - Orphenadrine Unknown - Capsaicin Itching - Ciprofloxacin Other: See Comments Red, hot, itchy rash - Keflex [Cephalexin] Hives - Niacin Unknown Pt states its niacin its niaspan - Penicillin G - Penicillins Unknown - Reglan [Metoclopram* Other: See Comments Unable to sleep - Xanthines Unknown - Zofran [Ondansetron* Itching PAST MEDICAL HISTORY Diagnosis Date - Acute chronic obstructive pulmonary disease with respiratory failure (HCC) - AF (paroxysmal atrial fibrillation) ([facility]) - Anxiety - Arthritis Seeing Dr Elliott - Cervical cancer ([facility]) hysterectomy - CHF (congestive heart failure) ([facility]) - Chronic back pain Seeing Dr. Wallace - Constipation - COPD (chronic obstructive pulmonary disease) ([facility]) - Coronary atherosclerosis of [place] coronary artery Previously seeing Dr. Sosa - DDD (degenerative disc disease), lumbar - DM type 2 (diabetes mellitus, type 2) ([facility]) Seeing Dr. Foley for podiatry - DVT (deep venous thrombosis) ([facility]) Post op INA, BSO. - Dysphagia Seeing Dr. Beaulieu - Emphysema lung ([facility]) - Essential hypertension - Functional dyspepsia - Gastroparesis 2017 mild - GERD without esophagitis - Headache - History of colon polyps 11/28/2016 - Hyperlipidemia - Hypothyroidism - Incontinence Seeing Dr. Chapman - Morbid obesity ([facility]) - Muscle weakness - Nausea - PARESH on CPAP [facility], no longer using as of 10/2017, was not compliant - PE (pulmonary thromboembolism) ([facility]) Post op INA/BSO. - Pneumonia - RLS (restless legs syndrome) - Shortness of breath - Sleep apnea using oxygen currently, not on CPAP - Unsteadiness on feet - Wheezing PAST SURGICAL HISTORY Procedure Laterality Date - CHOLECYSTECTOMY - COLONOS W/REM POLYP SNARE 11/28/2016 Repeat 2019 - COLONOSCOPY Has had multiple in the past with polyps, cannot remember dates - EGD W/O [facility] SPECIMEN W/BX 11/28/2016 - HERNIA REPAIR HX multiple - KNEE SURGERY HX Left x3 for torn cartilage - NASAL SURGERY PROCEDURE sinus - TOTAL ABDOM HYSTERECTOMY 1987 Cervical cancer - TUBAL LIGATION HX - WRIST SURGERY HX Right ganglion cyst removal x2 FAMILY HISTORY Problem Relation Age of Onset - Coronary Artery Disease Mother - Coronary Artery Disease Father - Asthma Brother - Coronary Artery Disease Brother - Diabetes Sister - Hypertension Sister - Diabetes Sister - Heart Sister - Allergies Sister - Asthma Sister - Allergies Sister - Emphysema Sister Early stages - COPD Paternal Uncle Social History Marital status: Spouse name: Years of education: Number of children: Occupational History 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 Social History Main Topics Smoking status: Former Smoker Packs/day: 1.00 Years: 28.00 Types: Cigarettes Start date: 1978 Quit date: 09/22/2005 Smokeless tobacco: Never Used Comment: Father smoked in childhood. 2nd spouse smoked in home. Alcohol use: No Drug use: No Sexual activity: No Social History Narrative 1 year in current home. No basement, 1 parakeet. Room A/C. Electric baseboard heat. Current Outpatient Prescriptions on File Prior to Visit: promethazine (PHENERGAN) 25 mg tablet Take 1 tablet by mouth every 6 hours as needed. metoprolol tartrate, short acting, (LOPRESSOR) 100 mg tablet TAKE 1 TABLET BY MOUTH TWICE A DAY aspirin, enteric coated (ASPIRIN, ENTERIC COATED) 81 mg EC tablet TAKE 1 TABLET BY MOUTH EVERY MORNING CLAUDIA-KYLE 8.6 mg tab TAKE 1 TABLET BY MOUTH TWICE A DAY STOOL SOFTENER 100 mg capsule TAKE 1 CAPSULE BY MOUTH DAILY Pseudoephedrine-guaiFENesin (MUCINEX D MAXIMUM STRENGTH) 120- 1,200 mg Tb12 Take 1 tablet by mouth twice daily. estradiol (ESTRACE) 0.01 % (0.1 mg/gram) vaginal cream Apply pea-sized amount to perineum and 1 applicator vaginally Mon, Wed, Fri for atrophic vaginitis. COMPOUNDED PRESCRIPTION Please fit for BiPAP mask. ONETOUCH ULTRA BLUE TEST STRIP test strip USE DIRECTED TO CHECK BLOOD SUGAR 4-5 TIMES DAILY ONETOUCH DELICA LANCETS 30 gauge misc USE TO CHECK BLOOD SUGAR 4-5 TIMES DALIY insulin glargine (LANTUS SOLOSTAR U-100 INSULIN) 100 unit/mL (3 mL) inpn Inject 56 units subcutaneously twice daily BIPAP Bilevel PAP 15/11 cmH2O with 2 LPM oxygen bleed in, mask, tubing, filters, heated humidity, lifetime supplies. Please fax 30 day compliance download to [phone]. Dx: G47.33, G47.39. DME: [facility] COMPOUNDED PRESCRIPTION OCD Titration for portable oxygen concentrator Oxygen Flow Rate between 2-6 liters. To keep oxygen saturation at or above 92%. insulin lispro (HUMALOG KWIKPEN INSULIN) 200 unit/mL (3 mL) injection Inject subcutaneously 14 units with breakfast, 22 units with lunch, and 24 units with dinner (Patient taking differently: 14 Units. Inject subcutaneously 14 units with breakfast, 22 units with lunch, and 24 units with dinner ) LYRICA 100 mg capsule TAKE 1 CAPSULE BY MOUTH THREE TIMES A DAY ULTICARE PEN NEEDLE 31 gauge x 02/04 ndle USE DIRECTED. TO INJECT INSULINS VITAMIN C 500 mg tablet TAKE 1 TABLET BY MOUTH DAILY Ferrous Gluconate (FERGON) 324 mg (38 mg iron) tablet TAKE 1 TABLET BY MOUTH DAILY WITH BREAKFAST isosorbide mononitrate ER (IMDUR) 60 mg 24 hr tablet Take 1.5 tablets by mouth once daily. In the morning atorvastatin (LIPITOR) 40 mg tablet TAKE 1 TABLET BY MOUTH DAILY diltiazem CD (CARDIZEM CD, CARTIA XT) 180 mg 24 hr capsule TAKE 1 CAPSULE BY MOUTH EVERY MORNING levothyroxine (SYNTHROID) 100 mcg tablet TAKE 1 TABLET BY MOUTH EVERY MORNING ELIQUIS 2.5 mg tab tab(s) TAKE 1 TABLET BY MOUTH TWICE A DAY nitroglycerin sublingual (NITROQUICK) 0.4 mg SL tablet DISSOLVE 1 TAB UNDER THE TONGUE NEEDED FOR CHEST PAIN EVERY 5 MINUTES UP TO 3 TIMES. IF NO RELIEF CALL 911. glucose 4 gram chewable tablet Take 4 tablets by mouth as needed for Low Blood Sugar. OXYGEN, HOME THERAPY, Inhale 3 L/min as instructed as directed. fluticasone (FLONASE) 50 mcg/actuation nasal spray Use 2 Sprays in each nostril once daily. metFORMIN ER (GLUCOPHAGE XR) 500 mg 24 hr tablet Take 2 tablets by mouth twice daily. DULoxetine (CYMBALTA) 60 mg capsule Take 1 capsule by mouth once daily. furosemide (LASIX) 40 mg tablet Take 1 tablet by mouth twice daily. albuterol HFA (VENTOLIN HFA) 90 mcg/actuation inhaler Inhale 2 Puffs as instructed every 4 hours as needed for Wheezing/Shortness of Breath. COMPOUNDED PRESCRIPTION Evaluation for diabetic shoes and inserts Dx: E11.65, Z79.4 Incontinence Pad, Liner, Disp pads 1 Device as needed (urinary incontinence). Prevail incontinence pads. Dx: urinary incontinence. Size: small Blood Pressure Cuff - Home Use BLOOD PRESSURE CUFF FOR HOME USE. DX: LABILE BLOOD PRESSURE Blood-Glucose Meter (VersionOneTOUCH ULTRA2) monitoring kit UAD to test blood sugar Alcohol Swabs padm UAD to clean skin before testing blood sugar and injecting insulins. insulin glargine (LANTUS SOLOSTAR U-100 INSULIN) 100 unit/mL (3 mL) inpn Inject 56 Units subcutaneously twice daily. Inject 56 units subcutaneously twice daily (Patient not taking: Reported on 03/02/2018 ) predniSONE (DELTASONE) 10 mg tablet Take 40 mg x 5 days, 20 mg x 5 days, 10 mg x 5 days. Take with food (Patient not taking: Reported on 03/02/2018 ) pantoprazole (PROTONIX) 40 mg/20 mL Take 20 mL by mouth twice daily before meals (0600/1600). (Patient not taking: Reported on 03/02/2018 ) mupirocin (BACTROBAN) 2 % ointment Apply 1 application to affected area three times daily. (Patient not taking: Reported on 03/02/2018 ) capsaicin (ZOSTRIX-HP) 0.075 % topical cream Apply 1 application to affected area four times daily. (Patient not taking: Reported on 03/02/2018 ) No current facility-administered medications on file prior to visit. Review of Systems: CONSTITUTIONAL: no fever, chills, night sweats HEENT: no eye itching or watering, no nasal congestion or rhinorrhea RESPIRATORY: see HPI CARDIOVASCULAR: no chest pain, palpitations GASTROINTESTINAL: + nausea (see HPI), no vomiting, or diarrhea, no heartburn or reflux symptoms NEUROLOGICAL: no headaches HEMATOLOGIC/LYMPHATIC: no lymphadenopathy MUSCULOSKELETAL: no joint pain, no joint swelling INTEGUMENTARY: no lesions, rashes, hives, eczema Physical Examination: BP (!) 108/48 (BP Site: Right Arm, BP Position: Sitting, BP Cuff Size: Large Adult) Pulse 85 Temp 36.6 ?C (97.9 ?F) (Temporal Artery) Resp 20 Ht 157.5 cm (5' 2) Wt 95.7 kg (211 lb) SpO2 99% BMI 38.59 kg/m? CONSTITUTIONAL: well-appearing, alert, in no acute distress, well-hydrated, well-nourished EYES: conjunctiva non-injected, anicteric sclera, pupils are equally round and reactive to light EARS: external ears normal, canals clear, TM's intact NOSE/SINUSES: blood present in bilateral nasal passages, appears to have a perforated nasal septum OROPHARYNX: lips, mucosa, and tongue normal, teeth and gums normal, oropharynx normal NECK: supple, no adenopathy RESPIRATORY: lungs clear to auscultation, no wheezing, rhonchi, rales CARDIOVASCULAR: irregular rate/rhythm (history of afib), no murmur, gallop, or rubs, no edema GASTROINTESTINAL: abdomen soft, non-tender, bowel sounds normal INTEGUMENTARY: skin color, texture, turgor normal, no visible rashes or lesions Diagnostic Testing: - Skin testing performed percutaneously and intradermally to penicillin G, PrePen, and ampicillin. Results were negative. - Oral amoxicillin challenge completed. Consent obtained. Observed for 30 minutes with no reaction. Assessment/Plan: 1. History of penicillin allergy (reaction was rash): - The patient has no evidence of penicillin-specific reaction by skin testing to penicillin G, PrePen, and ampicillin, as well as successful completion of an oral amoxicillin 250mg/ml challenge. This suggests that she is not at increased risk for an IgE-mediated (allergic/anaphylactic) reaction from penicillin/penicillin-like drugs compared with the general population. On this basis, she may receive beta lactam antibiotics as clinically indicated. The patient is still at risk for a non-IgE mediated reaction including SJS/TEN, serum sickness, or adverse effects of penicillin or penicillin- like drugs, as these tests do not predict the potential for these reactions. In addition, this evaluation does not rule out development of IgE sensitization upon exposure to beta lactams in the future. Their risk for developing a oys-VrB-ltdpwesx reaction, a delayed reaction, or adverse drug reaction is the same as it would be for the general population. - In regards to her history of cephalexin allergy, if she should need this medication in the future, I would recommend giving the first dose in a supervised medical setting. If no reaction after 30 minutes, you may proceed with regular dosing. 2. Possible nasal septum perforation: - Consult ENT for further evaluation and management. 3. COPD: - Managed by pulmonary. Follow-up appointment scheduled on 03/05/2018. - Continue current regimen as previously prescribed. - Lung volumes, oximetry trend, and spirometry scheduled to be done tomorrow 03/03/2018. Sarah Flores APRN.[facility] Department of Allergy AND Clinical Immunology #[id number] Katja Joshi RN 03/02/2018 5:16 PM Signed ANTIBIOTIC PERCUTANEOUS AND INTRADERMAL SKIN TESTING/ Mean Wheal AND Flare Diameter (mm) Patient has been identified by name and date of : Yes . Skin test applied by : Katja Joshi RN Interpreted By: Yanira Lopez M.D. * Clinical significant reactions are regarded as a wheal diameter greater than or equal to 3 mm with a flare diameter greater or equal to 6mm. Time Prick test applied: 2:15 PM Time Intradermal test applied: 2:40 PM Time Prick test read: 2:30 PM Time Intradermal test read: 2:55 PM ALLERGENS 1. CONTROL Normal Saline P: W = 0 mm F = 0 mm ID:W = 0 mm F = 0 mm 2. PENICILLIN GK 10,000 UNITS/ML (Lot #[id number] Exp 2018-01) P: W = 0 mm F = 0 mm ID: W = 0 mm F = 0 mm 3. PREPEN -(benzylpenicilloyl polylysine) full strength (Lot ALK [id number] 08/10) P: W = 0 mm F = 0mm ID: W = 0 mm F = 0 mm 4. AMPICILLIN SODIUM 12.5mg/ml (Lot [id number] 05/10) P: W = 0 mm F = 0mm ID: W = 0 mm F = 0 mm 5. HISTAMINE- positive control (Histamine base 6mg/ml)for Prick and 0.1 mg/ml for intradermal P: W = 2 mm F = 5 mm ID:W = 10 mm F = 20 mm Amoxicillin Oral Challenge 3:07 PM Informed consent for Amoxicillin oral challenge obtained per Sarah Flores DATA INPUT CLERK. Amoxicillin ([facility] lot [id number], exp. 09/2019) 250 mg/5 ml oral suspension po given per Sarah Flores' orders. 3:37 PM Pt. without signs or symptoms of allergic reaction. Katja Flores, MEDIA JOB TITLES.DATA INPUT CLERK 03/02/2018 3:52 PM Addendum 1. Penicillin allergy: - Skin testing today as well as successful completion of an oral amoxicillin challenge suggest that you are not at increased risk for an allergic/anaphylactic reaction from penicillin/penicillin- like drugs compared with the general population. - You are still at risk for developing a delayed reaction or side effecs as these tests do not predict the potential for these reactions; however, your risk is the same as it would be for the general population. - In regards to your keflex allergy, if needed in the future, I would recommend you take the first dose in the office and be observed for 30 minutes. If no reaction, you may proceed with the remainder of the course. 2. Nasal irritation: - Make an appointment with an ear, nose, and throat (ENT) physician for further evaluation and management, a consult has been placed. 3. COPD: - Continue current regimen as previously prescribed. - Continue to follow with pulmonary. - You have an appointment tomorrow with the pulmonary lab to get some breathing tests done. Thank you for allowing us to participate in your medical care. Let us know if we can contribute further. Referring Provider: SELF [[id number]] Allergies As of Date: 03/02/2018 Noted Allergy Reaction ADHESIVE TAPE (ROSINS) 04/04/2015 5 - Intolerance Comments: Surgical tape leaves rash Irritates skin badly and blisters along with medical tape CATS 04/10/2016 14 - Other: See Comments Comments: Congested and itchy, difficulty breathing DOGS 04/10/2016 14 - Other: See Comments Comments: Congestion, sneezing, and difficulty breathing ORPHENADRINE 04/10/2016 16 - Unknown CAPSAICIN 03/02/2018 9 - Itching CIPROFLOXACIN 12/11/2011 14 - Other: See Comments Comments: Red, hot, itchy rash KEFLEX (CEPHALEXIN) 07/10/2016 4 - Hives Comments: Negative skin testing and successful completion of an oral amoxicillin challenge was completed on 03/02/2018. Cephalexin shares an almost identical R1 side chain to amoxicillin; therefore, it is unlikely that she would be at elevated risk for developing an IgE-mediated reaction (allergic/anaphylactic). If she should need this medication in the future, I would recommend giving the first dose in a supervised medical setting. If no reaction after 30 minutes, proceed with regular dosing. NIACIN 04/04/2015 16 - Unknown Comments: Pt states its niacin its niaspan REGLAN (METOCLOPRAMIDE HCL) 03/04/2017 14 - Other: See Comments Comments: Unable to sleep XANTHINES 10/18/2004 16 - Unknown ZOFRAN (ONDANSETRON HCL (PF)) 02/03/2018 9 - Itching Date Reviewed: 03/02/2018 Reviewed by: Sarah (Lm) Mark - Fully Assessed Reason for Visit: Consult [502] Primary Visit Diagnosis:Rash and nonspecific skin eruption [R21] Other Visit Diagnoses:History of penicillin allergy [Z88.0] Perforation of nasal septum [J34.89] Chronic obstructive pulmonary disease, unspecified COPD type (HCC) [J44.9] Personal history of nicotine dependence [Z87.891] Order(s):ALLERGEN SKIN TEST-PENICILLIN [0803837] Order #: [id number] ALLERGEN SKIN TEST-PENICILLIN [2785935] Order #: [id number] [] amoxicillin 250 mg oral liquid (AMOXIL)Disp: Rfl: CONSULT TO ENT [9008] Order #: [id number]: 1 FUTURE Prescriptions as of 03/02/2018 Sig: PROMETHAZINE 25 MG TABLET Take 1 tablet by mouth every * METOPROLOL TARTRATE 100 MG TA* TAKE 1 TABLET BY MOUTH TWICE * ASPIRIN 81 MG TABLET,DELAYED * TAKE 1 TABLET BY MOUTH EVERY * CLAUDIA-KYLE 8.6 MG TABLET TAKE 1 TABLET BY MOUTH TWICE * STOOL SOFTENER 100 MG CAPSULE TAKE 1 CAPSULE BY MOUTH DAILY PSEUDOEPHEDRINE-GUAIFENESIN E* Take 1 tablet by mouth twice * ESTRADIOL 0.01% (0.1 MG/GRAM)* Apply pea-sized amount to per* COMPOUNDED PRESCRIPTION Please fit for BiPAP mask. ONETOUCH ULTRA BLUE TEST STRIP USE DIRECTED TO CHECK BLOO* ONETOUCH DELICA LANCETS 30 GA* USE TO CHECK BLOOD SUGAR 4-5 * INSULIN GLARGINE (U-100) 100 * Inject 56 units subcutaneousl* BIPAP Bilevel PAP 15/11 cmH2O with * COMPOUNDED PRESCRIPTION OCD Titration for portable ox* INSULIN LISPRO (U-200) 200 UN* Inject subcutaneously 14 unit* Patient taking differently: 14 Units. Inject subcutaneous* LYRICA 100 MG CAPSULE TAKE 1 CAPSULE BY MOUTH THREE* ULTICARE PEN NEEDLE 31 GAUGE * USE DIRECTED. TO INJECT IN* VITAMIN C 500 MG TABLET TAKE 1 TABLET BY MOUTH DAILY FERROUS GLUCONATE 324 MG (38 * TAKE 1 TABLET BY MOUTH DAILY * ISOSORBIDE MONONITRATE ER 60 * Take 1.5 tablets by mouth onc* ATORVASTATIN 40 MG TABLET TAKE 1 TABLET BY MOUTH DAILY DILTIAZEM SR 180 MG 24 HR CAP TAKE 1 CAPSULE BY MOUTH EVERY* LEVOTHYROXINE 100 MCG TABLET TAKE 1 TABLET BY MOUTH EVERY * ELIQUIS 2.5 MG TABLET TAKE 1 TABLET BY MOUTH TWICE * NITROGLYCERIN 0.4 MG SUBLINGU* DISSOLVE 1 TAB UNDER THE TONG* GLUCOSE 4 GRAM CHEWABLE TABLET Take 4 tablets by mouth as ne* OXYGEN (HOME THERAPY) Inhale 3 L/min as instructed * FLUTICASONE 50 MCG/ACTUATION * Use 2 Sprays in each nostril * METFORMIN ER 500 MG TABLET,EX* Take 2 tablets by mouth twice* DULOXETINE 60 MG CAPSULE,MARIA EUGENIA* Take 1 capsule by mouth once * FUROSEMIDE 40 MG TABLET Take 1 tablet by mouth twice * ALBUTEROL SULFATE HFA 90 MCG/* Inhale 2 Puffs as instructed * COMPOUNDED PRESCRIPTION Evaluation for diabetic shoes* INCONTINENCE PAD, LINER, DISP* 1 Device as needed (urinary i* COMPOUNDED PRESCRIPTION BLOOD PRESSURE CUFF FOR HOME * BLOOD-GLUCOSE METER KIT UAD to test blood sugar ALCOHOL SWABS UAD to clean skin before test* INSULIN GLARGINE (U-100) 100 * Inject 56 Units subcutaneousl* Patient not taking: Reported on 03/02/2018 PREDNISONE 10 MG TABLET Take 40 mg x 5 days, 20 mg x * Patient not taking: Reported on 03/02/2018 PANTOPRAZOLE ORAL LIQUID 40 M* Take 20 mL by mouth twice cady* Patient not taking: Reported on 03/02/2018 MUPIROCIN 2 % TOPICAL OINTMENT Apply 1 application to affect* Patient not taking: Reported on 03/02/2018 CAPSAICIN 0.075 % TOPICAL CRE* Apply 1 application to affect* Patient not taking: Reported on 03/02/2018 Medication notes this encounter BIPAP >> Donal Alvarado RN, RN 03/02/2018 1:23 PM >> DONAL ALVARADO Mon Mar 02, 2018 1:23 PM Has not received yet Problem List As Of Date 03/02/2018 Noted Resolved SUBJECTIVE TINNITUS [H93.19] INVALID FOR* PARESH treated with BiPAP [G47.33] INVALID FOR* Hyperlipidemia [E78.5] INVALID FOR* Coronary disease [I25.10] INVALID FOR* Diabetes mellitus, type II (HCC) [E11.9] INVALID FOR* Morbid obesity (HCC) [E66.01] Hypothyroidism [E03.9] Anxiety [F41.9] Sleep apnea [G47.30] 02/14/2017 Essential hypertension [I10] Coronary artery disease of [place] artery of [place]* AF (paroxysmal atrial fibrillation) (HCC) [I48.* COPD (chronic obstructive pulmonary disease) (H* GERD without esophagitis [K21.9] Dysphagia [R13.10] Constipation [K59.00] DM type 2 (diabetes mellitus, type 2) ([facility]) [E1* 02/14/2017 Shortness of breath [R06.02] 02/14/2017 Arthritis [M19.90] More... CHF (congestive heart failure) ([facility] [facility] [I50.9] BPPV (benign paroxysmal positional vertigo) [H8*INVALID FOR* RLS (restless legs syndrome) [G25.81] INVALID FOR* Iron deficiency concern: RE RLS [E61.1] INVALID FOR* Tubular adenoma [D36.9] INVALID FOR* Incontinence [R32] More... Gastroparesis [K31.84] INVALID FOR* Pre-op testing [Z01.818] INVALID FOR* More... Hypercapnia [R06.89] INVALID FOR* S/P coronary artery stent placement [Z95.5] INVALID FOR* Stage 3 chronic kidney disease [N18.3] INVALID FOR* Depression [F32.9] INVALID FOR* Other instructions from your clinician: 1. Penicillin allergy: - Skin testing today as well as successful completion of an oral amoxicillin challenge suggest that you are not at increased risk for an allergic/anaphylactic reaction from penicillin/penicillin- like drugs compared with the general population. - You are still at risk for developing a delayed reaction or side effecs as these tests do not predict the potential for these reactions; however, your risk is the same as it would be for the general population. - In regards to your keflex allergy, if needed in the future, I would recommend you take the first dose in the office and be observed for 30 minutes. If no reaction, you may proceed with the remainder of the course. 2. Nasal irritation: - Make an appointment with an ear, nose, and throat (ENT) physician for further evaluation and management, a consult has been placed. 3. COPD: - Continue current regimen as previously prescribed. - Continue to follow with pulmonary. - You have an appointment tomorrow with the pulmonary lab to get some breathing tests done. Thank you for allowing us to participate in your medical care. Let us know if we can contribute further. Prescriptions ordered this encounter Disp Refills Start End AMOXICILLIN 250 MG/5 ML ORAL SUSPENS* 03/02/2018 03/03/2018 Route: ORAL Encounter Status:Closed by SARAH FLORES CNP on 03/02/18 PROGRESS Observed: 03/02/2018 Status: COMPLETED Source: [place]USSE[place] 11:50 AM [facility] RE[facility] HNO ID: [id number] Author: Jefferson Connolly Service: (none) Author Type: Physician Type: Progress Notes Filed: 03/03/2018 11:51 AM Note Text: HISTORY AND PHYSICAL EXAMINATION SERVICE DATE: 03/02/2018 SERVICE TIME: PRIMARY CARE PHYSICIAN: Nanda Oliveira MD Subjective CHIEF COMPLAINT: post POP follow up HPI: This is a 63 year old female who presents to out patient clinic for routine post POP follow up. She is status post POP 2017. Her post operative course was complicated by readmission for respiratory tract infection. She reports improvements primarily in nausea since POP, she is able to tolerate sufficient liquids and soft foods FUNCTIONAL STATUS: Independent PAST MEDICAL HISTORY Diagnosis Date - Acute chronic obstructive pulmonary disease with respiratory failure ([facility]) - AF (paroxysmal atrial fibrillation) ([facility]) - Anxiety - Arthritis Seeing Dr Elliott - Cervical cancer ([facility]) hysterectomy - CHF (congestive heart failure) ([facility]) - Chronic back pain Seeing Dr. Wallace - Constipation - COPD (chronic obstructive pulmonary disease) ([facility]) - Coronary atherosclerosis of port lions coronary artery Previously seeing Dr. Sosa - DDD (degenerative disc disease), lumbar - DM type 2 (diabetes mellitus, type 2) ([facility]) Seeing Dr. Foley for podiatry - DVT (deep venous thrombosis) ([facility]) Post op INA, BSO. - Dysphagia Seeing Dr. Beaulieu - Emphysema lung ([facility]) - Essential hypertension - Functional dyspepsia - Gastroparesis 2016 mild - GERD without esophagitis - Headache - History of colon polyps 11/28/2016 - Hyperlipidemia - Hypothyroidism - Incontinence Seeing Dr. Chapman - Morbid obesity ([facility]) - Muscle weakness - Nausea - PARESH on CPAP [facility], no longer using as of 10/2017, was not compliant - PE (pulmonary thromboembolism) ([facility]) Post op INA/BSO. - Pneumonia - RLS (restless legs syndrome) - Shortness of breath - Sleep apnea using oxygen currently, not on CPAP - Unsteadiness on feet - Wheezing PAST SURGICAL HISTORY Procedure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 tape CATS 04/10/2016 14 - Other: See Comments Comments: Congested and itchy, difficulty breathing DOGS 04/10/2016 14 - Other: See Comments Comments: Congestion, sneezing, and difficulty breathing ORPHENADRINE 04/10/2016 16 - Unknown CIPROFLOXACIN 12/11/2011 14 - Other: See Comments Comments: Red, hot, itchy rash KEFLEX (CEPHALEXIN) 07/10/2016 4 - Hives NIACIN 04/04/2015 16 - Unknown Comments: Pt states its niacin its niaspan DELETED: PENICILLIN G 10/18/2004 2 - Rash Comments: Negative skin testing and successful completion of an oral amoxicillin challenge was done on 03/02/2018 suggesting that she is not at increased risk for developing an IgE medicated (allergic/anaphylactic) reaction. Still at risk for a delayed reaction or side effects. DELETED: PENICILLINS 04/04/2015 2 - Rash Comments: Negative skin testing and successful completion of an oral amoxicillin challenge was done on 03/02/2018 suggesting that she is not at increased risk for developing an IgE medicated (allergic/anaphylactic) reaction. Still at risk for a delayed reaction or side effects. REGLAN (METOCLOPRAMIDE HCL) 03/04/2017 14 - Other: See Comments Comments: Unable to sleep XANTHINES 10/18/2004 16 - Unknown ZOFRAN (ONDANSETRON HCL (PF)) 02/03/2018 9 - Itching Date Reviewed: 02/26/2018 Reviewed by: Susana Wilburn RN - Fully Assessed Reason for Visit: [facility] C[facility] [3037] Prescriptions as of 02/26/2018 Sig: PROMETHAZINE 25 MG TABLET Take 1 tablet by mouth every * METOPROLOL TARTRATE 100 MG TA* TAKE 1 TABLET BY MOUTH TWICE * ASPIRIN 81 MG TABLET,DELAYED * TAKE 1 TABLET BY MOUTH EVERY * INSULIN GLARGINE (U-100) 100 * Inject 56 Units subcutaneousl* Patient not taking: Reported on 03/02/2018 CLAUDIA-KYLE 8.6 MG TABLET TAKE 1 TABLET BY MOUTH TWICE * STOOL SOFTENER 100 MG CAPSULE TAKE 1 CAPSULE BY MOUTH DAILY PREDNISONE 10 MG TABLET Take 40 mg x 5 days, 20 mg x * Patient not taking: Reported on 03/02/2018 PSEUDOEPHEDRINE-GUAIFENESIN E* Take 1 tablet by mouth twice * PANTOPRAZOLE ORAL LIQUID 40 M* Take 20 mL by mouth twice cady* Patient not taking: Reported on 03/02/2018 ESTRADIOL 0.01% (0.1 MG/GRAM)* Apply pea-sized amount to per* COMPOUNDED PRESCRIPTION Please fit for BiPAP mask. ONETOUCH ULTRA BLUE TEST STRIP USE DIRECTED TO CHECK BLOO* ONETOUCH DELICA LANCETS 30 GA* USE TO CHECK BLOOD SUGAR 4-5 * INSULIN GLARGINE (U-100) 100 * Inject 56 units subcutaneousl* BIPAP Bilevel PAP 15/11 cmH2O with * COMPOUNDED PRESCRIPTION OCD Titration for portable ox* MUPIROCIN 2 % TOPICAL OINTMENT Apply 1 application to affect* Patient not taking: Reported on 03/02/2018 INSULIN LISPRO (U-200) 200 UN* Inject subcutaneously 14 unit* Patient taking differently: 14 Units. Inject subcutaneous* LYRICA 100 MG CAPSULE TAKE 1 CAPSULE BY MOUTH THREE* CAPSAICIN 0.075 % TOPICAL CRE* Apply 1 application to affect* Patient not taking: Reported on 03/02/2018 ULTICARE PEN NEEDLE 31 GAUGE * USE DIRECTED. TO INJECT IN* VITAMIN C 500 MG TABLET TAKE 1 TABLET BY MOUTH DAILY FERROUS GLUCONATE 324 MG (38 * TAKE 1 TABLET BY MOUTH DAILY * ISOSORBIDE MONONITRATE ER 60 * Take 1.5 tablets by mouth onc* ATORVASTATIN 40 MG TABLET TAKE 1 TABLET BY MOUTH DAILY DILTIAZEM SR 180 MG 24 HR CAP TAKE 1 CAPSULE BY MOUTH EVERY* LEVOTHYROXINE 100 MCG TABLET TAKE 1 TABLET BY MOUTH EVERY * ELIQUIS 2.5 MG TABLET TAKE 1 TABLET BY MOUTH TWICE * NITROGLYCERIN 0.4 MG SUBLINGU* DISSOLVE 1 TAB UNDER THE TONG* GLUCOSE 4 GRAM CHEWABLE TABLET Take 4 tablets by mouth as ne* OXYGEN (HOME THERAPY) Inhale 3 L/min as instructed * FLUTICASONE 50 MCG/ACTUATION * Use 2 Sprays in each nostril * METFORMIN ER 500 MG TABLET,EX* Take 2 tablets by mouth twice* DULOXETINE 60 MG CAPSULE,MARIA EUGENIA* Take 1 capsule by mouth once * FUROSEMIDE 40 MG TABLET Take 1 tablet by mouth twice * ALBUTEROL SULFATE HFA 90 MCG/* Inhale 2 Puffs as instructed * COMPOUNDED PRESCRIPTION Evaluation for diabetic shoes* INCONTINENCE PAD, LINER, DISP* 1 Device as needed (urinary i* COMPOUNDED PRESCRIPTION BLOOD PRESSURE CUFF FOR HOME * BLOOD-GLUCOSE METER KIT UAD to test blood sugar ALCOHOL SWABS UAD to clean skin before test* Problem List As Of Date 02/26/2018 Noted Resolved SUBJECTIVE TINNITUS [H93.19] INVALID FOR* PARESH treated with BiPAP [G47.33] INVALID FOR* Hyperlipidemia [E78.5] INVALID FOR* Coronary disease [I25.10] INVALID FOR* Diabetes mellitus, type II (HCC) [E11.9] INVALID FOR* Morbid obesity (HCC) [E66.01] Hypothyroidism [E03.9] Anxiety [F41.9] Sleep apnea [G47.30] 02/14/2017 Essential hypertension [I10] Coronary artery disease of port lions artery of stoney* AF (paroxysmal atrial fibrillation) ([facility]) [I48.* COPD (chronic obstructive pulmonary disease) (H* GERD without esophagitis [K21.9] Dysphagia [R13.10] Constipation [K59.00] DM type 2 (diabetes mellitus, type 2) ([facility]) [E1* 02/14/2017 Shortness of breath [R06.02] 02/14/2017 Arthritis [M19.90] More... CHF (congestive heart failure) ([facility]) [I50.9] BPPV (benign paroxysmal positional vertigo) [H8*INVALID FOR* RLS (restless legs syndrome) [G25.81] INVALID FOR* Iron deficiency concern: RE RLS [E61.1] INVALID FOR* Tubular adenoma [D36.9] INVALID FOR* Incontinence [R32] More... Gastroparesis [K31.84] INVALID FOR* Pre-op testing [Z01.818] INVALID FOR* More... Hypercapnia [R06.89] INVALID FOR* S/P coronary artery stent placement [Z95.5] INVALID FOR* Stage 3 chronic kidney disease [N18.3] INVALID FOR* Depression [F32.9] INVALID FOR* Encounter Status:Closed by SAAD SILVESTRE on 02/27/18 PROGRESS Observed: 02/20/2018 Status: COMPLETED Source: RUSSELL 2:11 PM [facility] REPOSITORY O ID: [id number] Author: Saad (Nina) Larry Service: (none) Author Type: Registered Nurse Type: Progress Notes Filed: 02/20/2018 3:08 PM Note Text: PRIMARY CARE COORDINATION IN OFFICE VISIT WITH PCP Patient has been identified by name and date of . PCP Assessment/Plan: Reviewed PCP plan with patient using Teach Back Had lengthy discussion about PARESH and CPAP/BIPAP; the dangers of PARESH and benefits of wearing her mask at night. Pt states her sleep study is 6/4 and she will wear her CPAP?BIPAP because she wore it in the hospital and got over the fear and noticed after the second night she began to feel better. Discussed pt not wearing her O2, she didn't have it on at appt because she said tank wasn't full. Discussed planning ahead and filling tank when it's empty so it is available when she leaves the house Discussed using incentive spirometer. Informed her pulse ox was 92-93% but after she took several deep breaths it went up to 97% Discussed missing Pulmonary appt yesterday. States if she doesn't write appts down on her calendar she forgets them. PCC Plan of Care: Patient goals: Patient will have sleep study done and when she gets her new mask and CPAP or BIPAP she will wear it nightly Pt will write appointments down on the calendar when scheduled PCC Interventions: Scheduled appt with Goldie Whaley for 02/23 Next Office Visit: 04/06/2018 Plan For Next Call: 3 weeks Saad Silvestre RN February 20, 2018 PROGRESS Observed: 02/20/2018 Status: COMPLETED Source: RUSSELL 10:54 AM [facility] REPOSITORY HNO ID: [id number] Author: Nanda Rodriguez) Brian Service: (none) Author Type: Physician Type: Progress Notes Filed: 02/23/2018 10:32 AM Note Text: Chief Complaint No chief complaint on file. HPI Tamia Panda is a 63 year old female who presents here today for Hospital Discharge Follow up. Patient was admitted on 2 separate occasions at [facility] for delirium, hypercapnia, COPD exacerbation, human meta pneumovirus infection, and uncontrolled PARESH. Was seen here on 02/03 by CLIENT TECHNICAL SPECIALIST Katie Podlogjuanito and was found to have altered mental status and SOB and was taken by squad to [facility] ED. Admitted from 02/03 to 02/05 for hypercapnia and COPD exacerbation secondary to human metaneumovirus and non compliance with CPAP/Bipap. Noted to have positive MRSA on Discharged home on home oxygen at same level she was to be using prior to admission. Symptoms recurred overnight and was brought back into the ED on 02/06 with progressive SOB and admitted until 02/11. While inpatient during second admission, she was started on IV vancomycin, and zosyn due to previous culture showing MRSA. Bipap restarted and was eventually changed to nocturnal use only. Switched from IV abx to PO bactrim and started on prednisone taper. Discharged home with Bactrim for 3 days and 30 tablets of prednisone. Advised to follow up with PCP and given order for home health for home PT/OT. Since discharge, patient states that breathing has improved and is without significant cough or wheezing. Finished Bactrim and is still taking prednisone taper, currently on 20 mg PO daily for 3 days then to 10 mg PO daily for 3 days. Using mucinex for occasional dry cough which helps. Using nebulizer once per day to stay ahead of COPD. When seen in consult by pulmonology they made no changes to her regimen. Was scheduled to follow up with pulmonology yesterday, but did not go to appointment, forgot. Not wearing portable oxygen today, but is using oxygen at home. Forgot to fill up portable tank. Has noticed that her brain has been more foggy without her oxygen. Has appointment scheduled this month for pap titration . Was able to tolerate bipap while inpatient and feels more comfortable with using it at home. Discussed that this is not her first admission for hypercapnia and altered mental status and that if she had not come in for evaluation she would have most certainly worsened at home and possibly . Patient expressed understanding. Discharged home with order for home health with PT and OT and after initial evaluation, patient refused further treatment. Patient states she did not feel they would help her, but is in wheelchair today due to LE weakness. Discussed having PT and OT return for further evaluation which she is agreeable to. Past medical history, appointments, medications, allergies reviewed. Previous Medical History PAST MEDICAL HISTORY Diagnosis Date - Acute chronic obstructive pulmonary disease with respiratory failure ([facility]) - AF (paroxysmal atrial fibrillation) ([facility]) - Anxiety - Arthritis Seeing Dr Elliott - Cervical cancer ([facility]) hysterectomy - CHF (congestive heart failure) ([facility]) - Chronic back pain Seeing Dr. Wallace - Constipation - COPD (chronic obstructive pulmonary disease) ([facility]) - Coronary atherosclerosis of port lions coronary artery Previously seeing Dr. Sosa - DDD (degenerative disc disease), lumbar - DM type 2 (diabetes mellitus, type 2) ([facility]) Seeing Dr. Foley for podiatry - DVT (deep venous thrombosis) ([facility]) Post op INA, BSO. - Dysphagia Seeing Dr. Beaulieu - Emphysema lung ([facility]) - Essential hypertension - Functional dyspepsia - Gastroparesis 2016 mild - GERD without esophagitis - Headache - History of colon polyps 11/28/2016 - Hyperlipidemia - Hypothyroidism - Incontinence Seeing Dr. Chapman - Morbid obesity ([facility]) - Muscle weakness - Nausea - PARESH on CPAP [facility], no longer using as of 10/2017, was not compliant - PE (pulmonary thromboembolism) (HCC) Post op INA/BSO. - Pneumonia - RLS (restless legs syndrome) - Shortness of breath - Sleep apnea using oxygen currently, not on CPAP - Unsteadiness on feet - Wheezing Previous Surgical History PAST SURGICAL HISTORY Procedure Laterality Date - CHOLECYSTECTOMY - COLONOS W/REM POLYP SNARE 11/28/2016 Repeat 2020 - COLONOSCOPY Has had multiple in the past with polyps, cannot remember dates - EGD W/O BRSH SPECIMEN W/BX 11/28/2016 - HERNIA REPAIR HX multiple - KNEE SURGERY HX Left x3 for torn cartilage - NASAL SURGERY PROCEDURE sinus - TOTAL ABDOM HYSTERECTOMY 1987 Cervical cancer - TUBAL LIGATION HX - WRIST SURGERY HX Right ganglion cyst removal x2 Family History FAMILY HISTORY Problem Relation Age of Onset - Coronary Artery Disease Mother - Coronary Artery Disease Father - Asthma Brother - Coronary Artery Disease Brother - Diabetes Sister - Hypertension Sister - Diabetes Sister - Heart Sister - Allergies Sister - Asthma Sister - Allergies Sister - Emphysema Sister Early stages - COPD Paternal Uncle Patient Allergies ALLERGIES Allergen Reactions - Adhesive Tape (Adrienne* Intolerance Surgical tape leaves rash Irritates skin badly and blisters along with medical tape - Cats Other: See Comments Congested and itchy, difficulty breathing - Dogs Other: See Comments Congestion, sneezing, and difficulty breathing - Orphenadrine Unknown - Ciprofloxacin Other: See Comments Red, hot, itchy rash - Keflex [Cephalexin] Hives - Niacin Unknown Pt states its niacin its niaspan - Penicillin G - Penicillins Unknown - Reglan [Metoclopram* Other: See Comments Unable to sleep - Xanthines Unknown - Zofran [Ondansetron* Itching Current Medications Current Outpatient Prescriptions on File Prior to Visit: metoprolol tartrate, short acting, (LOPRESSOR) 100 mg tablet TAKE 1 TABLET BY MOUTH TWICE A DAY aspirin, enteric coated (ASPIRIN, ENTERIC COATED) 81 mg EC tablet TAKE 1 TABLET BY MOUTH EVERY MORNING insulin glargine (LANTUS SOLOSTAR U-100 INSULIN) 100 unit/mL (3 mL) inpn Inject 56 Units subcutaneously twice daily. Inject 56 units subcutaneously twice daily CLAUDIA-KYLE 8.6 mg tab TAKE 1 TABLET BY MOUTH TWICE A DAY STOOL SOFTENER 100 mg capsule TAKE 1 CAPSULE BY MOUTH DAILY predniSONE (DELTASONE) 10 mg tablet Take 40 mg x 5 days, 20 mg x 5 days, 10 mg x 5 days. Take with food Pseudoephedrine-guaiFENesin (MUCINEX D MAXIMUM STRENGTH) 120- 1,200 mg Tb12 Take 1 tablet by mouth twice daily. sucralfate (CARAFATE) 100 mg/mL susp Take 10 mL by mouth every 6 hours. pantoprazole (PROTONIX) 40 mg/20 mL Take 20 mL by mouth twice daily before meals (0600/1600). estradiol (ESTRACE) 0.01 % (0.1 mg/gram) vaginal cream Apply pea-sized amount to perineum and 1 applicator vaginally Mon, Wed, Fri for atrophic vaginitis. COMPOUNDED PRESCRIPTION Please fit for BiPAP mask. ONETOUCH ULTRA BLUE TEST STRIP test strip USE DIRECTED TO CHECK BLOOD SUGAR 4-5 TIMES DAILY ONETOUCH DELICA LANCETS 30 gauge misc USE TO CHECK BLOOD SUGAR 4-5 TIMES DALIY insulin glargine (LANTUS SOLOSTAR U-100 INSULIN) 100 unit/mL (3 mL) inpn Inject 56 units subcutaneously twice daily BIPAP Bilevel PAP 15/11 cmH2O with 2 LPM oxygen bleed in, mask, tubing, filters, heated humidity, lifetime supplies. Please fax 30 day compliance download to [phone]. Dx: G47.33, G47.39. [facility] (Patient not taking: Reported on 01/23/2018 ) COMPOUNDED PRESCRIPTION OCD Titration for portable oxygen concentrator Oxygen Flow Rate between 2-6 liters. To keep oxygen saturation at or above 92%. mupirocin (BACTROBAN) 2 % ointment Apply 1 application to affected area three times daily. promethazine (PHENERGAN) 25 mg tablet Take 1 tablet by mouth every 6 hours as needed. insulin lispro (HUMALOG KWIKPEN INSULIN) 200 unit/mL (3 mL) injection Inject subcutaneously 14 units with breakfast, 22 units with lunch, and 24 units with dinner (Patient taking differently: 14 Units. Inject subcutaneously 14 units with breakfast, 22 units with lunch, and 24 units with dinner ) LYRICA 100 mg capsule TAKE 1 CAPSULE BY MOUTH THREE TIMES A DAY capsaicin (ZOSTRIX-HP) 0.075 % topical cream Apply 1 application to affected area four times daily. ULTICARE PEN NEEDLE 31 gauge x 16 ndle USE DIRECTED. TO INJECT INSULINS VITAMIN C 500 mg tablet TAKE 1 TABLET BY MOUTH DAILY Ferrous Gluconate (FERGON) 324 mg (38 mg iron) tablet TAKE 1 TABLET BY MOUTH DAILY WITH BREAKFAST isosorbide mononitrate ER (IMDUR) 60 mg 24 hr tablet Take 1.5 tablets by mouth once daily. In the morning atorvastatin (LIPITOR) 40 mg tablet TAKE 1 TABLET BY MOUTH DAILY diltiazem CD (CARDIZEM CD, CARTIA XT) 180 mg 24 hr capsule TAKE 1 CAPSULE BY MOUTH EVERY MORNING levothyroxine (SYNTHROID) 100 mcg tablet TAKE 1 TABLET BY MOUTH EVERY MORNING ELIQUIS 2.5 mg tab tab(s) TAKE 1 TABLET BY MOUTH TWICE A DAY nitroglycerin sublingual (NITROQUICK) 0.4 mg SL tablet DISSOLVE 1 TAB UNDER THE TONGUE NEEDED FOR CHEST PAIN EVERY 5 MINUTES UP TO 3 TIMES. IF NO RELIEF CALL 911. glucose 4 gram chewable tablet Take 4 tablets by mouth as needed for Low Blood Sugar. OXYGEN, HOME THERAPY, Inhale 3 L/min as instructed as directed. fluticasone (FLONASE) 50 mcg/actuation nasal spray Use 2 Sprays in each nostril once daily. metFORMIN ER (GLUCOPHAGE XR) 500 mg 24 hr tablet Take 2 tablets by mouth twice daily. DULoxetine (CYMBALTA) 60 mg capsule Take 1 capsule by mouth once daily. furosemide (LASIX) 40 mg tablet Take 1 tablet by mouth twice daily. albuterol HFA (VENTOLIN HFA) 90 mcg/actuation inhaler Inhale 2 Puffs as instructed every 4 hours as needed for Wheezing/Shortness of Breath. COMPOUNDED PRESCRIPTION Evaluation for diabetic shoes and inserts Dx: E11.65, Z79.4 Incontinence Pad, Liner, Disp pads 1 Device as needed (urinary incontinence). Prevail incontinence pads. Dx: urinary incontinence. Size: small Blood Pressure Cuff - Home Use BLOOD PRESSURE CUFF FOR HOME USE. DX: LABILE BLOOD PRESSURE Blood-Glucose Meter (ONETOUCH ULTRA2) monitoring kit UAD to test blood sugar Alcohol Swabs padm UAD to clean skin before testing blood sugar and injecting insulins. No current facility-administered medications on file prior to visit. 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 Social History Main Topics Smoking status: Former Smoker Packs/day: 1.00 Years: 28.00 Types: Cigarettes Start date: 1978 Quit date: 09/22/2005 Smokeless tobacco: Never Used Comment: Father smoked in childhood. 2nd spouse smoked in home. Alcohol use: No Drug use: No Sexual activity: No Social History Narrative 1 year in current home. No basement, 1 parakeet. Room A/C. Electric baseboard heat. Review of Symptoms REVIEW OF SYSTEMS GENERAL: No weight loss, malaise or fevers RESPIRATORY: See HPI CARDIOVASCULAR: Negative for chest pain, leg swelling, hypertension, CHF or palpitations GI: Positive for nausea which is chronic. Denies vomiting, diarrhea : No history of dysuria, frequency or incontinence SKIN: Negative for lesions, rash, and itching EXAM: BP 117/75 Pulse 71 Temp 36.7 ?C (98 ?F) (Temporal Artery) Resp 22 SpO2 92% General Appearance: Well appearing, alert, in no acute distress, well-hydrated, well nourished.. Skin: Skin color, texture, turgor normal, no suspicious rashes or lesions. Lungs: Lungs clear to auscultation. No wheezing, rhonchi, rales. Heart: RRR without murmur, gallop, or rubs. No ectopy. Abdomen: Normal abdominal exam, Abdomen soft, non-tender. Bowel sounds normal. No masses, organomegaly. Extremities: No deformities, edema, skin discoloration, clubbing or cyanosis. Good capillary refill. . Health Maintenance List DIABETIC FOOT EXAM due on 06/03/2018 HBA1C due on 06/13/2018 URINE ALBUMIN CREATININE RATIO due on 06/19/2018 DILATED RETINAL EXAM due on 07/03/2018 MAMMOGRAM due on 12/11/2018 LDL due on 12/11/2018 COLORECTAL CANCER SCREENING,SEE MODIFIER due on 11/30/2019 PAP EVERY 5 YEARS due on 11/27/2021 HPV EVERY 5 YEARS due on 11/27/2021 DTAP,TDAP,TD(2 - Td) due on 10/02/2026 ONE PNEUMOVAX PRIOR TO AGE 65 Completed INFLUENZA Completed HEPATITIS C SCREENING Completed ASSESSMENT/PLAN: 1. Delirium - ICD9: 780.09, ICD10: R41.0 (primary diagnosis) 2/2 hypercapnia related to uncontrolled PARESH and COPD. Discussed need to use oxygen on a daily basis and needs to follow up with pulmonology and with Pap titration. Will initiate Bipap based on settings and follow up in 6 weeks to go over results. 2. Hypercapnia - ICD9: 786.09, ICD10: R06.89 See above. Pap titration later this month. To call with recurrent symptoms. 3. PARESH (obstructive sleep apnea) - ICD9: 327.23, ICD10: G47.33 See above. 4. COPD with exacerbation (HCC) - ICD9: 491.21, ICD10: J44.1 Discussed last DLCO study showed more restriction than obstruction. Will have her continue nebulizer PRN, oxygen daily, finish prednsione taper, and follow up with pulmonology on Friday. 5. Human metapneumovirus (hMPV) pneumonia - ICD9: 480.8, ICD10: J12.3 Breathing symptoms improved. Will monitor. 6. MRSA (methicillin resistant Staphylococcus aureus) - ICD9: 041.12, ICD10: A49.02 Bactrim complete. Symptoms improved. 7. Hospital discharge follow-up - ICD9: V67.59, ICD10: Z09 See above. 8. Nausea - ICD9: 787.02, ICD10: R11.0 Requesting refill on phenergan for intermittent nausea. - PROMETHAZINE 25 MG TABLET 9. Age-related physical debility - ICD9: 797, ICD10: R54 Referral for home PT/OT due to weakness and debility. Discussed importance of therapy to help with mobility and prevent falls. - [facility] I spent 40 minutes in the visit, with more than 50% of the total gdoo-mt-mubr time of the visit in counseling / coordination of care. Nanda Oliveira MD CNOV Observed: 02/20/2018 Status: COMPLETED Source: RUSSELL 10:40 AM [facility] REPOSITORY [facility] TAMIA PANDA ([id number]) 1955 F Date Time Provider Department 02/20/18 10:40 AM NANDA OLIVEIRA) [facility] During your visit today, we recorded the following information about you: Temperature Pulse Respiration Blood pressure 98 degrees 71/minute 22/minute 117/75 Nanda Oliveira MD 02/23/2018 10:32 AM Signed Chief Complaint No chief complaint on file. HPI Tamia Panda is a 63 year old female who presents here today for Hospital Discharge Follow up. Patient was admitted on 2 separate occasions at [facility] for delirium, hypercapnia, COPD exacerbation, human meta pneumovirus infection, and uncontrolled PARESH. Was seen here on 02/03 by CLIENT TECHNICAL SPECIALIST Katie Podnorberto and was found to have altered mental status and SOB and was taken by squad to [facility] ED. Admitted from 02/03 to 02/05 for hypercapnia and COPD exacerbation secondary to human metaneumovirus and non compliance with CPAP/Bipap. Noted to have positive MRSA on Discharged home on home oxygen at same level she was to be using prior to admission. Symptoms recurred overnight and was brought back into the ED on 02/06 with progressive SOB and admitted until 02/11. While inpatient during second admission, she was started on IV vancomycin, and zosyn due to previous culture showing MRSA. Bipap restarted and was eventually changed to nocturnal use only. Switched from IV abx to PO bactrim and started on prednisone taper. Discharged home with Bactrim for 3 days and 30 tablets of prednisone. Advised to follow up with PCP and given order for home health for home PT/OT. Since discharge, patient states that breathing has improved and is without significant cough or wheezing. Finished Bactrim and is still taking prednisone taper, currently on 20 mg PO daily for 3 days then to 10 mg PO daily for 3 days. Using mucinex for occasional dry cough which helps. Using nebulizer once per day to stay ahead of COPD. When seen in consult by pulmonology they made no changes to her regimen. Was scheduled to follow up with pulmonology yesterday, but did not go to appointment, forgot. Not wearing portable oxygen today, but is using oxygen at home. Forgot to fill up portable tank. Has noticed that her brain has been more foggy without her oxygen. Has appointment scheduled this month for pap titration . Was able to tolerate bipap while inpatient and feels more comfortable with using it at home. Discussed that this is not her first admission for hypercapnia and altered mental status and that if she had not come in for evaluation she would have most certainly worsened at home and possibly . Patient expressed understanding. Discharged home with order for home health with PT and OT and after initial evaluation, patient refused further treatment. Patient states she did not feel they would help her, but is in wheelchair today due to LE weakness. Discussed having PT and OT return for further evaluation which she is agreeable to. Past medical history, appointments, medications, allergies reviewed. Previous Medical History PAST MEDICAL HISTORY Diagnosis Date - Acute chronic obstructive pulmonary disease with respiratory failure ([facility]) - AF (paroxysmal atrial fibrillation) ([facility]) - Anxiety - Arthritis Seeing Dr Elliott - Cervical cancer ([facility]) hysterectomy - CHF (congestive heart failure) ([facility]) - Chronic back pain Seeing Dr. Wallace - Constipation - COPD (chronic obstructive pulmonary disease) ([facility]) - Coronary atherosclerosis of port lions coronary artery Previously seeing Dr. Sosa - DDD (degenerative disc disease), lumbar - DM type 2 (diabetes mellitus, type 2) ([facility]) Seeing Dr. Foley for podiatry - DVT (deep venous thrombosis) ([facility]) Post op INA, BSO. - Dysphagia Seeing Dr. Beaulieu - Emphysema lung ([facility]) - Essential hypertension - Functional dyspepsia - Gastroparesis 2016 mild - GERD without esophagitis - Headache - History of colon polyps 11/28/2016 - Hyperlipidemia - Hypothyroidism - Incontinence Seeing Dr. Chapman - Morbid obesity ([facility]) - Muscle weakness - Nausea - PARESH on CPAP [facility], no longer using as of 10/2017, was not compliant - PE (pulmonary thromboembolism) ([facility]) Post op INA/BSO. - Pneumonia - RLS (restless legs syndrome) - Shortness of breath - Sleep apnea using oxygen currently, not on CPAP - Unsteadiness on feet - Wheezing Previous Surgical History PAST SURGICAL HISTORY Procedure Laterality Date - CHOLECYSTECTOMY - COLONOS W/REM POLYP SNARE 11/28/2016 Repeat 2019 - COLONOSCOPY Has had multiple in the past with polyps, cannot remember dates - EGD W/O BRSH SPECIMEN W/BX 11/28/2016 - HERNIA REPAIR HX multiple - KNEE SURGERY HX Left x3 for torn cartilage - NASAL SURGERY PROCEDURE sinus - TOTAL ABDOM HYSTERECTOMY 1987 Cervical cancer - TUBAL LIGATION HX - WRIST SURGERY HX Right ganglion cyst removal x2 Family History FAMILY HISTORY Problem Relation Age of Onset - Coronary Artery Disease Mother - Coronary Artery Disease Father - Asthma Brother - Coronary Artery Disease Brother - Diabetes Sister - Hypertension Sister - Diabetes Sister - Heart Sister - Allergies Sister - Asthma Sister - Allergies Sister - Emphysema Sister Early stages - COPD Paternal Uncle Patient Allergies ALLERGIES Allergen Reactions - Adhesive Tape (Adrienne* Intolerance Surgical tape leaves rash Irritates skin badly and blisters along with medical tape - Cats Other: See Comments Congested and itchy, difficulty breathing - Dogs Other: See Comments Congestion, sneezing, and difficulty breathing - Orphenadrine Unknown - Ciprofloxacin Other: See Comments Red, hot, itchy rash - Keflex [Cephalexin] Hives - Niacin Unknown Pt states its niacin its niaspan - Penicillin G - Penicillins Unknown - Reglan [Metoclopram* Other: See Comments Unable to sleep - Xanthines Unknown - Zofran [Ondansetron* Itching Current Medications Current Outpatient Prescriptions on File Prior to Visit: metoprolol tartrate, short acting, (LOPRESSOR) 100 mg tablet TAKE 1 TABLET BY MOUTH TWICE A DAY aspirin, enteric coated (ASPIRIN, ENTERIC COATED) 81 mg EC tablet TAKE 1 TABLET BY MOUTH EVERY MORNING insulin glargine (LANTUS SOLOSTAR U-100 INSULIN) 100 unit/mL (3 mL) inpn Inject 56 Units subcutaneously twice daily. Inject 56 units subcutaneously twice daily CLAUDIA-KYLE 8.6 mg tab TAKE 1 TABLET BY MOUTH TWICE A DAY STOOL SOFTENER 100 mg capsule TAKE 1 CAPSULE BY MOUTH DAILY predniSONE (DELTASONE) 10 mg tablet Take 40 mg x 5 days, 20 mg x 5 days, 10 mg x 5 days. Take with food Pseudoephedrine-guaiFENesin (MUCINEX D MAXIMUM STRENGTH) 120- 1,200 mg Tb12 Take 1 tablet by mouth twice daily. sucralfate (CARAFATE) 100 mg/mL susp Take 10 mL by mouth every 6 hours. pantoprazole (PROTONIX) 40 mg/20 mL Take 20 mL by mouth twice daily before meals (0600/1600). estradiol (ESTRACE) 0.01 % (0.1 mg/gram) vaginal cream Apply pea-sized amount to perineum and 1 applicator vaginally Mon, Wed, Fri for atrophic vaginitis. COMPOUNDED PRESCRIPTION Please fit for BiPAP mask. ONETOUCH ULTRA BLUE TEST STRIP test strip USE DIRECTED TO CHECK BLOOD SUGAR 4-5 TIMES DAILY ONETOUCH DELICA LANCETS 30 gauge misc USE TO CHECK BLOOD SUGAR 4-5 TIMES DALIY insulin glargine (LANTUS SOLOSTAR U-100 INSULIN) 100 unit/mL (3 mL) inpn Inject 56 units subcutaneously twice daily BIPAP Bilevel PAP 15/11 cmH2O with 2 LPM oxygen bleed in, mask, tubing, filters, heated humidity, lifetime supplies. Please fax 30 day compliance download to [phone]. Dx: G47.33, G47.39. [facility]: [facility] (Patient not taking: Reported on 01/23/2018 ) COMPOUNDED PRESCRIPTION OCD Titration for portable oxygen concentrator Oxygen Flow Rate between 2-6 liters. To keep oxygen saturation at or above 92%. mupirocin (BACTROBAN) 2 % ointment Apply 1 application to affected area three times daily. promethazine (PHENERGAN) 25 mg tablet Take 1 tablet by mouth every 6 hours as needed. insulin lispro (HUMALOG KWIKPEN INSULIN) 200 unit/mL (3 mL) injection Inject subcutaneously 14 units with breakfast, 22 units with lunch, and 24 units with dinner (Patient taking differently: 14 Units. Inject subcutaneously 14 units with breakfast, 22 units with lunch, and 24 units with dinner ) LYRICA 100 mg capsule TAKE 1 CAPSULE BY MOUTH THREE TIMES A DAY capsaicin (ZOSTRIX-HP) 0.075 % topical cream Apply 1 application to affected area four times daily. ULTICARE PEN NEEDLE 31 gauge x 16 ndle USE DIRECTED. TO INJECT INSULINS VITAMIN C 500 mg tablet TAKE 1 TABLET BY MOUTH DAILY Ferrous Gluconate (FERGON) 324 mg (38 mg iron) tablet TAKE 1 TABLET BY MOUTH DAILY WITH BREAKFAST isosorbide mononitrate ER (IMDUR) 60 mg 24 hr tablet Take 1.5 tablets by mouth once daily. In the morning atorvastatin (LIPITOR) 40 mg tablet TAKE 1 TABLET BY MOUTH DAILY diltiazem CD (CARDIZEM CD, CARTIA XT) 180 mg 24 hr capsule TAKE 1 CAPSULE BY MOUTH EVERY MORNING levothyroxine (SYNTHROID) 100 mcg tablet TAKE 1 TABLET BY MOUTH EVERY MORNING ELIQUIS 2.5 mg tab tab(s) TAKE 1 TABLET BY MOUTH TWICE A DAY nitroglycerin sublingual (NITROQUICK) 0.4 mg SL tablet DISSOLVE 1 TAB UNDER THE TONGUE NEEDED FOR CHEST PAIN EVERY 5 MINUTES UP TO 3 TIMES. IF NO RELIEF CALL 911. glucose 4 gram chewable tablet Take 4 tablets by mouth as needed for Low Blood Sugar. OXYGEN, HOME THERAPY, Inhale 3 L/min as instructed as directed. fluticasone (FLONASE) 50 mcg/actuation nasal spray Use 2 Sprays in each nostril once daily. metFORMIN ER (GLUCOPHAGE XR) 500 mg 24 hr tablet Take 2 tablets by mouth twice daily. DULoxetine (CYMBALTA) 60 mg capsule Take 1 capsule by mouth once daily. furosemide (LASIX) 40 mg tablet Take 1 tablet by mouth twice daily. albuterol HFA (VENTOLIN HFA) 90 mcg/actuation inhaler Inhale 2 Puffs as instructed every 4 hours as needed for Wheezing/Shortness of Breath. COMPOUNDED PRESCRIPTION Evaluation for diabetic shoes and inserts Dx: E11.65, Z79.4 Incontinence Pad, Liner, Disp pads 1 Device as needed (urinary incontinence). Prevail incontinence pads. Dx: urinary incontinence. Size: small Blood Pressure Cuff - Home Use BLOOD PRESSURE CUFF FOR HOME USE. DX: LABILE BLOOD PRESSURE Blood-Glucose Meter (ONETOUCH ULTRA2) monitoring kit UAD to test blood sugar Alcohol Swabs padm UAD to clean skin before testing blood sugar and injecting insulins. No current facility-administered medications on file prior to visit. 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 Social History Main Topics Smoking status: Former Smoker Packs/day: 1.00 Years: 28.00 Types: Cigarettes Start date: 1978 Quit date: 09/22/2005 Smokeless tobacco: Never Used Comment: Father smoked in childhood. 2nd spouse smoked in home. Alcohol use: No Drug use: No Sexual activity: No Social History Narrative 1 year in current home. No basement, 1 parakeet. Room A/C. Electric baseboard heat. Review of Symptoms REVIEW OF SYSTEMS GENERAL: No weight loss, malaise or fevers RESPIRATORY: See HPI CARDIOVASCULAR: Negative for chest pain, leg swelling, hypertension, CHF or palpitations GI: Positive for nausea which is chronic. Denies vomiting, diarrhea : No history of dysuria, frequency or incontinence SKIN: Negative for lesions, rash, and itching EXAM: BP 117/75 Pulse 71 Temp 36.7 ?C (98 ?F) (Temporal Artery) Resp 22 SpO2 92% General Appearance: Well appearing, alert, in no acute distress, well-hydrated, well nourished.. Skin: Skin color, texture, turgor normal, no suspicious rashes or lesions. Lungs: Lungs clear to auscultation. No wheezing, rhonchi, rales. Heart: RRR without murmur, gallop, or rubs. No ectopy. Abdomen: Normal abdominal exam, Abdomen soft, non-tender. Bowel sounds normal. No masses, organomegaly. Extremities: No deformities, edema, skin discoloration, clubbing or cyanosis. Good capillary refill. . Health Maintenance List DIABETIC FOOT EXAM due on 06/03/2018 HBA1C due on 06/13/2018 URINE ALBUMIN CREATININE RATIO due on 06/19/2018 DILATED RETINAL EXAM due on 07/03/2018 MAMMOGRAM due on 12/11/2018 LDL due on 12/11/2018 COLORECTAL CANCER SCREENING,SEE MODIFIER due on 11/30/2019 PAP EVERY 5 YEARS due on 11/27/2021 HPV EVERY 5 YEARS due on 11/27/2021 DTAP,TDAP,TD(2 - Td) due on 10/02/2026 ONE PNEUMOVAX PRIOR TO AGE 65 Completed INFLUENZA Completed HEPATITIS C SCREENING Completed ASSESSMENT/PLAN: 1. Delirium - ICD9: 780.09, ICD10: R41.0 (primary diagnosis) 2/2 hypercapnia related to uncontrolled PARESH and COPD. Discussed need to use oxygen on a daily basis and needs to follow up with pulmonology and with Pap titration. Will initiate Bipap based on settings and follow up in 6 weeks to go over results. 2. Hypercapnia - ICD9: 786.09, ICD10: R06.89 See above. Pap titration later this month. To call with recurrent symptoms. 3. PARESH (obstructive sleep apnea) - ICD9: 327.23, ICD10: G47.33 See above. 4. COPD with exacerbation (HCC) - ICD9: 491.21, ICD10: J44.1 Discussed last DLCO study showed more restriction than obstruction. Will have her continue nebulizer PRN, oxygen daily, finish prednsione taper, and follow up with pulmonology on Friday. 5. Human metapneumovirus (hMPV) pneumonia - ICD9: 480.8, ICD10: J12.3 Breathing symptoms improved. Will monitor. 6. MRSA (methicillin resistant Staphylococcus aureus) - ICD9: 041.12, ICD10: A49.02 Bactrim complete. Symptoms improved. 7. Hospital discharge follow-up - ICD9: V67.59, ICD10: Z09 See above. 8. Nausea - ICD9: 787.02, ICD10: R11.0 Requesting refill on phenergan for intermittent nausea. - PROMETHAZINE 25 MG TABLET 9. Age-related physical debility - ICD9: 797, ICD10: R54 Referral for home PT/OT due to weakness and debility. Discussed importance of therapy to help with mobility and prevent falls. - [facility] I spent 40 minutes in the visit, with more than 50% of the total rluo-st-gfpp time of the visit in counseling / coordination of care. Nanda Oliveira MD Referring Provider: SELF [[id number]] Allergies As of Date: 02/20/2018 Noted Allergy Reaction ADHESIVE TAPE (ROSINS) 04/04/2015 5 - Intolerance Comments: Surgical tape leaves rash Irritates skin badly and blisters along with medical tape CATS 04/10/2016 14 - Other: See Comments Comments: Congested and itchy, difficulty breathing DOGS 04/10/2016 14 - Other: See Comments Comments: Congestion, sneezing, and difficulty breathing ORPHENADRINE 04/10/2016 16 - Unknown CIPROFLOXACIN 12/11/2011 14 - Other: See Comments Comments: Red, hot, itchy rash KEFLEX (CEPHALEXIN) 07/10/2016 4 - Hives NIACIN 04/04/2015 16 - Unknown Comments: Pt states its niacin its niaspan PENICILLIN G 10/18/2004 PENICILLINS 04/04/2015 16 - Unknown REGLAN (METOCLOPRAMIDE HCL) 03/04/2017 14 - Other: See Comments Comments: Unable to sleep XANTHINES 10/18/2004 16 - Unknown ZOFRAN (ONDANSETRON HCL (PF)) 02/03/2018 9 - Itching Date Reviewed: 02/20/2018 Reviewed by: Clayton Serna Ma - Fully Assessed Primary Visit Diagnosis:Delirium [R41.0] Other Visit Diagnoses:Hypercapnia [R06.89] PARESH (obstructive sleep apnea) [G47.33] COPD with exacerbation (HCC) [J44.1] Human metapneumovirus (hMPV) pneumonia [J12.3] MRSA (methicillin resistant Staphylococcus aureus) [A49.02] Hospital discharge follow-up [Z09] Nausea [R11.0] Age-related physical debility [R54] Order(s):[facility] [[id number]] Order #: [id number]: 1 Prescriptions as of 02/20/2018 Sig: X PROMETHAZINE 25 MG TABLET Take 1 tablet by mouth every * METOPROLOL TARTRATE 100 MG TA* TAKE 1 TABLET BY MOUTH TWICE * ASPIRIN 81 MG TABLET,DELAYED * TAKE 1 TABLET BY MOUTH EVERY * INSULIN GLARGINE (U-100) 100 * Inject 56 Units subcutaneousl* CLAUDIA-KYLE 8.6 MG TABLET TAKE 1 TABLET BY MOUTH TWICE * STOOL SOFTENER 100 MG CAPSULE TAKE 1 CAPSULE BY MOUTH DAILY PREDNISONE 10 MG TABLET Take 40 mg x 5 days, 20 mg x * PSEUDOEPHEDRINE-GUAIFENESIN E* Take 1 tablet by mouth twice * PANTOPRAZOLE ORAL LIQUID 40 M* Take 20 mL by mouth twice cady* ESTRADIOL 0.01% (0.1 MG/GRAM)* Apply pea-sized amount to per* COMPOUNDED PRESCRIPTION Please fit for BiPAP mask. ONETOUCH ULTRA BLUE TEST STRIP USE DIRECTED TO CHECK BLOO* ONETOUCH DELICA LANCETS 30 GA* USE TO CHECK BLOOD SUGAR 4-5 * INSULIN GLARGINE (U-100) 100 * Inject 56 units subcutaneousl* BIPAP Bilevel PAP 15/11 cmH2O with * Patient not taking: Reported on 01/23/2018 COMPOUNDED PRESCRIPTION OCD Titration for portable ox* MUPIROCIN 2 % TOPICAL OINTMENT Apply 1 application to affect* INSULIN LISPRO (U-200) 200 UN* Inject subcutaneously 14 unit* Patient taking differently: 14 Units. Inject subcutaneous* LYRICA 100 MG CAPSULE TAKE 1 CAPSULE BY MOUTH THREE* CAPSAICIN 0.075 % TOPICAL CRE* Apply 1 application to affect* ULTICARE PEN NEEDLE 31 GAUGE * USE DIRECTED. TO INJECT IN* VITAMIN C 500 MG TABLET TAKE 1 TABLET BY MOUTH DAILY FERROUS GLUCONATE 324 MG (38 * TAKE 1 TABLET BY MOUTH DAILY * ISOSORBIDE MONONITRATE ER 60 * Take 1.5 tablets by mouth onc* ATORVASTATIN 40 MG TABLET TAKE 1 TABLET BY MOUTH DAILY DILTIAZEM SR 180 MG 24 HR CAP TAKE 1 CAPSULE BY MOUTH EVERY* LEVOTHYROXINE 100 MCG TABLET TAKE 1 TABLET BY MOUTH EVERY * ELIQUIS 2.5 MG TABLET TAKE 1 TABLET BY MOUTH TWICE * NITROGLYCERIN 0.4 MG SUBLINGU* DISSOLVE 1 TAB UNDER THE TONG* GLUCOSE 4 GRAM CHEWABLE TABLET Take 4 tablets by mouth as ne* OXYGEN (HOME THERAPY) Inhale 3 L/min as instructed * FLUTICASONE 50 MCG/ACTUATION * Use 2 Sprays in each nostril * METFORMIN ER 500 MG TABLET,EX* Take 2 tablets by mouth twice* DULOXETINE 60 MG CAPSULE,MARIA EUGENIA* Take 1 capsule by mouth once * FUROSEMIDE 40 MG TABLET Take 1 tablet by mouth twice * ALBUTEROL SULFATE HFA 90 MCG/* Inhale 2 Puffs as instructed * COMPOUNDED PRESCRIPTION Evaluation for diabetic shoes* INCONTINENCE PAD, LINER, DISP* 1 Device as needed (urinary i* COMPOUNDED PRESCRIPTION BLOOD PRESSURE CUFF FOR HOME * BLOOD-GLUCOSE METER KIT UAD to test blood sugar ALCOHOL SWABS UAD to clean skin before test* Problem List As Of Date 02/20/2018 Noted Resolved SUBJECTIVE TINNITUS [H93.19] INVALID FOR* PARESH treated with BiPAP [G47.33] INVALID FOR* Hyperlipidemia [E78.5] INVALID FOR* Coronary disease [I25.10] INVALID FOR* Diabetes mellitus, type II (HCC) [E11.9] INVALID FOR* Morbid obesity ([facility]) [E66.01] Hypothyroidism [E03.9] Anxiety [F41.9] Sleep apnea [G47.30] 02/14/2017 Essential hypertension [I10] Coronary artery disease of port lions artery of stoney* AF (paroxysmal atrial fibrillation) ([facility]) [I48.* COPD (chronic obstructive pulmonary disease) (H* GERD without esophagitis [K21.9] Dysphagia [R13.10] Constipation [K59.00] DM type 2 (diabetes mellitus, type 2) ([facility]) [E1* 02/14/2017 Shortness of breath [R06.02] 02/14/2017 Arthritis [M19.90] More... CHF (congestive heart failure) (HCC) [I50.9] BPPV (benign paroxysmal positional vertigo) [H8*INVALID FOR* RLS (restless legs syndrome) [G25.81] INVALID FOR* Iron deficiency concern: RE RLS [E61.1] INVALID FOR* Tubular adenoma [D36.9] INVALID FOR* Incontinence [R32] More... Gastroparesis [K31.84] INVALID FOR* Pre-op testing [Z01.818] INVALID FOR* More... Hypercapnia [R06.89] INVALID FOR* S/P coronary artery stent placement [Z95.5] INVALID FOR* Stage 3 chronic kidney disease [N18.3] INVALID FOR* Depression [F32.9] INVALID FOR* Prescriptions ordered this encounter Disp Refills Start End PROMETHAZINE 25 MG TABLET 20 t* 0 02/20/2018 02/20/2018 Route: ORAL Sig: Take 1 tablet by mouth every 6 hours as needed. Medications Discontinued During This Encounter sucralfate (CARAFATE) 100 mg/mL susp 1200* 0 01/31/2018 02/20/2018 Class: Print RX Route: ORAL Sig: Take 10 mL by mouth every 6 hours. Disc: Reason for discontinue is not on file. promethazine (PHENERGAN) 25 mg tablet 20 t* 0 11/26/2017 02/20/2018 Route: ORAL Sig: Take 1 tablet by mouth every 6 hours as needed. Disc: Reason for discontinue is not on file. Disposition: Return in about 6 weeks (around 04/03/2018). Follow-up and Disposition History Recorded Encounter Status:Closed by NANDA OLIVEIRA MD on 02/23/18 MELCHOR Observed: 02/20/2018 Status: COMPLETED Source: RUSSELL 12:00 AM [facility] REPOSITORY [facility] HENRYTAMIA Rodriguez ([id number]) 1955 F Date Time Provider Department 02/20/18 SAAD SILVESTRE (RN) CIERA During your visit today, we recorded the following information about you: Saad Silvestre RN 02/20/2018 3:08 PM Signed PRIMARY CARE COORDINATION IN OFFICE VISIT WITH PCP Patient has been identified by name and date of . PCP Assessment/Plan: Reviewed PCP plan with patient using Teach Back Had lengthy discussion about PARESH and CPAP/BIPAP; the dangers of PARESH and benefits of wearing her mask at night. Pt states her sleep study is 02/23 and she will wear her CPAP?BIPAP because she wore it in the hospital and got over the fear and noticed after the second night she began to feel better. Discussed pt not wearing her O2, she didn't have it on at appt because she said tank wasn't full. Discussed planning ahead and filling tank when it's empty so it is available when she leaves the house Discussed using incentive spirometer. Informed her pulse ox was 92-93% but after she took several deep breaths it went up to 97% Discussed missing Pulmonary appt yesterday. States if she doesn't write appts down on her calendar she forgets them. PCC Plan of Care: Patient goals: Patient will have sleep study done and when she gets her new mask and CPAP or BIPAP she will wear it nightly Pt will write appointments down on the calendar when scheduled PCC Interventions: Scheduled appt with Goldie Whaley for 02/23 Next Office Visit: 04/06/2018 Plan For Next Call: 3 weeks Saad Silvestre RN February 20, 2018 Allergies As of Date: 02/20/2018 Noted Allergy Reaction ADHESIVE TAPE (ROSINS) 04/04/2015 5 - Intolerance Comments: Surgical tape leaves rash Irritates skin badly and blisters along with medical tape CATS 04/10/2016 14 - Other: See Comments Comments: Congested and itchy, difficulty breathing DOGS 04/10/2016 14 - Other: See Comments Comments: Congestion, sneezing, and difficulty breathing ORPHENADRINE 04/10/2016 16 - Unknown CIPROFLOXACIN 12/11/2011 14 - Other: See Comments Comments: Red, hot, itchy rash KEFLEX (CEPHALEXIN) 07/10/2016 4 - Hives NIACIN 04/04/2015 16 - Unknown Comments: Pt states its niacin its niaspan PENICILLIN G 10/18/2004 PENICILLINS 04/04/2015 16 - Unknown REGLAN (METOCLOPRAMIDE HCL) 03/04/2017 14 - Other: See Comments Comments: Unable to sleep XANTHINES 10/18/2004 16 - Unknown ZOFRAN (ONDANSETRON HCL (PF)) 02/03/2018 9 - Itching Date Reviewed: 02/20/2018 Reviewed by: Clayton Serna Ma - Fully Assessed Reason for Visit: Glove Cuffer-In Office Visit [9793] Prescriptions as of 02/20/2018 Sig: PROMETHAZINE 25 MG TABLET Take 1 tablet by mouth every * METOPROLOL TARTRATE 100 MG TA* TAKE 1 TABLET BY MOUTH TWICE * ASPIRIN 81 MG TABLET,DELAYED * TAKE 1 TABLET BY MOUTH EVERY * INSULIN GLARGINE (U-100) 100 * Inject 56 Units subcutaneousl* CLAUDIA-KYLE 8.6 MG TABLET TAKE 1 TABLET BY MOUTH TWICE * STOOL SOFTENER 100 MG CAPSULE TAKE 1 CAPSULE BY MOUTH DAILY PREDNISONE 10 MG TABLET Take 40 mg x 5 days, 20 mg x * PSEUDOEPHEDRINE-GUAIFENESIN E* Take 1 tablet by mouth twice * PANTOPRAZOLE ORAL LIQUID 40 M* Take 20 mL by mouth twice cady* ESTRADIOL 0.01% (0.1 MG/GRAM)* Apply pea-sized amount to per* COMPOUNDED PRESCRIPTION Please fit for BiPAP mask. ONETOUCH ULTRA BLUE TEST STRIP USE DIRECTED TO CHECK BLOO* ONETOUCH DELICA LANCETS 30 GA* USE TO CHECK BLOOD SUGAR 4-5 * INSULIN GLARGINE (U-100) 100 * Inject 56 units subcutaneousl* BIPAP Bilevel PAP 15/11 cmH2O with * Patient not taking: Reported on 01/23/2018 COMPOUNDED PRESCRIPTION OCD Titration for portable ox* MUPIROCIN 2 % TOPICAL OINTMENT Apply 1 application to affect* INSULIN LISPRO (U-200) 200 UN* Inject subcutaneously 14 unit* Patient taking differently: 14 Units. Inject subcutaneous* LYRICA 100 MG CAPSULE TAKE 1 CAPSULE BY MOUTH THREE* CAPSAICIN 0.075 % TOPICAL CRE* Apply 1 application to affect* ULTICARE PEN NEEDLE 31 GAUGE * USE DIRECTED. TO INJECT IN* VITAMIN C 500 MG TABLET TAKE 1 TABLET BY MOUTH DAILY FERROUS GLUCONATE 324 MG (38 * TAKE 1 TABLET BY MOUTH DAILY * ISOSORBIDE MONONITRATE ER 60 * Take 1.5 tablets by mouth onc* ATORVASTATIN 40 MG TABLET TAKE 1 TABLET BY MOUTH DAILY DILTIAZEM SR 180 MG 24 HR CAP TAKE 1 CAPSULE BY MOUTH EVERY* LEVOTHYROXINE 100 MCG TABLET TAKE 1 TABLET BY MOUTH EVERY * ELIQUIS 2.5 MG TABLET TAKE 1 TABLET BY MOUTH TWICE * NITROGLYCERIN 0.4 MG SUBLINGU* DISSOLVE 1 TAB UNDER THE TONG* GLUCOSE 4 GRAM CHEWABLE TABLET Take 4 tablets by mouth as ne* OXYGEN (HOME THERAPY) Inhale 3 L/min as instructed * FLUTICASONE 50 MCG/ACTUATION * Use 2 Sprays in each nostril * METFORMIN ER 500 MG TABLET,EX* Take 2 tablets by mouth twice* DULOXETINE 60 MG CAPSULE,MARIA EUGENIA* Take 1 capsule by mouth once * FUROSEMIDE 40 MG TABLET Take 1 tablet by mouth twice * ALBUTEROL SULFATE HFA 90 MCG/* Inhale 2 Puffs as instructed * COMPOUNDED PRESCRIPTION Evaluation for diabetic shoes* INCONTINENCE PAD, LINER, DISP* 1 Device as needed (urinary i* COMPOUNDED PRESCRIPTION BLOOD PRESSURE CUFF FOR HOME * BLOOD-GLUCOSE METER KIT UAD to test blood sugar ALCOHOL SWABS UAD to clean skin before test* Problem List As Of Date 02/20/2018 Noted Resolved SUBJECTIVE TINNITUS [H93.19] INVALID FOR* PARESH treated with BiPAP [G47.33] INVALID FOR* Hyperlipidemia [E78.5] INVALID FOR* Coronary disease [I25.10] INVALID FOR* Diabetes mellitus, type II ([facility]) [E11.9] INVALID FOR* Morbid obesity ([facility]) [E66.01] Hypothyroidism [E03.9] Anxiety [F41.9] Sleep apnea [G47.30] 02/14/2017 Essential hypertension [I10] Coronary artery disease of [place] artery of stoney* AF (paroxysmal atrial fibrillation) ([facility]) [I48.* COPD (chronic obstructive pulmonary disease) (H* GERD without esophagitis [K21.9] Dysphagia [R13.10] Constipation [K59.00] DM type 2 (diabetes mellitus, type 2) ([facility]) [E1* 02/14/2017 Shortness of breath [R06.02] 02/14/2017 Arthritis [M19.90] More... CHF (congestive heart failure) (HCC) [I50.9] BPPV (benign paroxysmal positional vertigo) [H8*INVALID FOR* RLS (restless legs syndrome) [G25.81] INVALID FOR* Iron deficiency concern: RE RLS [E61.1] INVALID FOR* Tubular adenoma [D36.9] INVALID FOR* Incontinence [R32] More... Gastroparesis [K31.84] INVALID FOR* Pre-op testing [Z01.818] INVALID FOR* More... Hypercapnia [R06.89] INVALID FOR* S/P coronary artery stent placement [Z95.5] INVALID FOR* Stage 3 chronic kidney disease [N18.3] INVALID FOR* Depression [F32.9] INVALID FOR* Encounter Status:Closed by SAAD SILVESTRE on 02/20/18 DISCHARGE SUMMARY Observed: 02/16/2018 Status: F Source: KINJAL 5:51 PM [facility] REPOSITORY [facility] Medical Records Department [address] [place] [id number] Discharge Summary 02/05/18 1121 MR#: [id number] Acct: [id number] Name: TAMIA PANDA Rep #: [id number] : 1955 63 From: Shirley Fabian MD PCP: Bhupendra Oliveira MD Status: DIS IN Y Location: [place] [address]-1 ADDENDUM by Shirley Fabian MD on 02/16/18 at 1751 Code Visit Patient had asymptomatic bacteriuria. Admitted with Acute COPD exacerbation secondary to moderate acute human metapneumovirus bronchitis. 02/16/18 1751 <Electronically signed by Shirley Fabian MD> Date Shirley Fabian MD cc: Shirley Fabian MD; Bhupendra Oliveira MD * Signed ADDENDUM by Shirley Fabian MD on 02/16/18 at 1306 Code Visit Documentation clarification: Patient was also admitted with acute metabolic encephalopathy, likely related to acute COPD exacerbation, which improved with Bipap treatment. Unclear if this was clearly related to medications. 02/16/18 1306 <Electronically signed by Shirley Fabian MD> Date Shirley Fabian MD cc: Shirley Fabian MD; Bhupendra Oliveira MD * Signed Discharge Date and Diagnosis - Problem List Patient Problems: Active and Suspected Problems Acute on chronic respiratory failure with hypoxia and hypercapnia (Acute) COPD exacerbation (Acute) Possible pneumonia (Acute) Date of Admission: 02/03/18 Date of Discharge: 02/05/18 - Primary Discharge Diagnosis Active and Suspected Problems Acute on chronic respiratory failure with hypoxia and hypercapnia (Acute) COPD exacerbation (Acute) - Secondary Discharge Diagnosis Chronic Problems Diabetes mellitus type 2 in obese (Chronic) Coronary arteriosclerosis (Chronic) cath 05/2015 mild-moderate disease medical therapy recommended Hypothyroidism (Chronic) Hyperlipemia (Chronic) GERD (gastroesophageal reflux disease) (Chronic) Hypertension (Chronic) COPD (chronic obstructive pulmonary disease) (Chronic) Chronic respiratory insufficiency (Chronic) On home oxygen at night S/P PTCA (percutaneous transluminal coronary angioplasty) (Chronic) PARESH (obstructive sleep apnea) (Chronic) Hospital Course and Treatment Imaging Results: Clinical Impression(s) from Imaging Studies Chest X-Ray 02/03/18 16:30 IMPRESSION: No acute cardiopulmonary disease or interval change. Electronically Signed: Gurwinder Canela DO at 16:50 EDT Tel [phone], Service support , Chest X-Ray 02/04/18 05:55 IMPRESSION: Persistent pulmonary venous congestion and prominent interstitial markings, cannot exclude underlying edema. Mild cardiomegaly. Electronically Signed: Chantel Mahajan MD at 8:58 EDT Tel , Service support , Pulmonology Operations: None Procedures: None Summary of Care Provided: 63-year-old female with multiple comorbidities, recently underwent EGD and pyloromyotomy 4 days prior in the [facility] comes in with complaints of shortness of breath and confusion. Patient was brought in by the family with complaints of similar presentation anytime she had pneumonia. Patient was said to be lethargic and not answering questions on arrival to the ED. Vitals showed fever with temperature of 100 F, saturating 92% on 3 L of oxygen. Of note is that patient is on chronic home 3 L oxygen. Active management is as follows: 1. Acute on chronic COPD exacerbation secondary to human metapneumovirus, based on breathing treatment, IV Solu-Medrol, and therapy, BiPAP at night. Chest x-ray on admission showed no acute cardiopulmonary disease. Pneumonia was ruled out with repeat chest x-ray. Patient continued to improve and was at her home oxygen level. She had an acute exacerbation prior to her discharge because she had refused breathing treatments was in the hospital. Counseled patient on medication, compliance and discharged with prescription for nebulizer solution as well as oral steroid taper. 2. Acute on chronic combined respiratory failure, patient was managed initially on BiPAP and later transitioned to nasal cannula oxygen with improvement. She finally became stable at her home 3 L oxygen. Pulmonology team consulted. Patient will follow on discharge. 3. Obstructive sleep apnea, on BiPAP nightly. 4. CAD status post PTCA, on aspirin, statin, Eliquis, beta- sudhakar, nitrate, Lasix, Cardizem 5. Type 2 diabetes mellitus, recent HbA1c was 8.2, blood sugar slightly uncontrolled secondary to steroid use, her home oral hypoglycemic agents were held briefly, resumed on discharge. 6. Hypertension, stable 7. Hyperlipidemia, on statin. 8. Hypothyroidism, on Synthroid regimen. 9. Paroxysmal atrial fibrillation, patient had episodes of A. fib with RVR noted the last 2 days prior to discharge, changes were made to her home metoprolol to 100mg 3 times daily, patient's heart rate improved. 10. GERD, on PPI. 11. Obesity, encouraged diet and lifestyle modifications. Discharge Diet: Low fat/ Low Cholesterol, 2000 mg Sodium Diet, Carb Control Diet Discharge Activity: Return to Normal Activity Home Medications: Medications to take at Discharge Albuterol Inhaler [Ventolin Hfa] 2 puff INHALATION Q4H PRN PRN 02/03/18 Apixaban [Eliquis] 2.5 mg PO BID 02/03/18 Ascorbic Acid [Vitamin C] 500 mg PO DAILY@0800 02/03/18 Aspirin [Aspirin, Baby] 81 mg PO DAILY@02/03/18 Atorvastatin Calcium [Lipitor] 40 mg PO QHS 02/03/18 Capsaicin 1 dose TP 4X/DAY 02/03/18 Diltiazem HCl [Cartia Xt] 180 mg PO DAILY 02/03/18 Docusate Sodium [Stool Softener] 100 mg PO DAILY PRN PRN 02/03/18 Duloxetine Hcl [Cymbalta] 60 mg PO DAILY 02/03/18 Estradiol 1 dose VG MOWEFR 02/03/18 Ferrous Gluconate 325 mg PO DAILY@0800 02/03/18 Fluticasone 0.05% [Flonase Nasal [place]] 2 spray NASAL DAILY 02/03/18 Furosemide [Lasix] 40 mg PO BIDLX 02/03/18 Insulin Glargine,Hum.rec.anlog [Lantus] 56 unit SQ BID 02/03/18 Insulin Lispro [Humalog KwikPen] 22 unit SQ LUNCH 02/03/18 Insulin Lispro [Humalog KwikPen] 24 unit SQ DINNER 02/03/18 Insulin Lispro [Humalog] 14 unit SQ BREAKFAST 02/03/18 Isosorbide Mononitrate [Imdur] 90 mg PO DAILY 02/03/18 Levothyroxine [Synthroid] 100 mcg PO DAILY 02/03/18 Metformin HCl [Metformin HCl ER] 1,000 mg PO BID 02/03/18 Oxycodone HCl [Roxicodone] 5 - 10 mg PO Q4H PRN 02/03/18 Pantoprazole Sodium [Protonix] 40 mg PO BID 02/03/18 Pregabalin [Lyrica] 100 mg PO TID 02/03/18 Sennosides [Claudia-Kyle] 8.6 mg PO BID 02/03/18 Sucralfate [Carafate] 1 gm PO 4X/DAY 02/03/18 proMETHazine tablet [Phenergan tablet] 25 mg PO Q6H PRN PRN 02/03/18 Glucerna Shake 120 ml PO 4X/DAY #100 liquid 02/05/18 Guaifenesin [Mucinex] 1,200 mg PO BID #20 tab 02/05/18 Ipratropium/Albuterol Sulfate [Duoneb] 3 ml INHALATION Q4H.RT #100 ampul.neb 02/05/18 Metoprolol Tartrate [Lopressor (beta sudhakar)] 100 mg PO BID #60 tab 02/05/18 Prednisone 10 mg PO UD #30 tab 02/05/18 Following Prescrptions Were Given to Patient: Ipratropium/Albuterol Sulfate [Duoneb] 3 ml INHALATION Q4H.RT #100 ampul.neb Prednisone 10 mg PO UD #30 tab Guaifenesin [Mucinex] 1,200 mg PO BID #20 tab Metoprolol Tartrate [Lopressor (beta sudhakar)] 100 mg PO BID #60 tab Glucerna Shake 120 ml PO 4X/DAY #100 liquid Primary Care Physician: Bhupendra Oliveira MD [Primary Care Provider] - Please follow up with your Primary Care Physician in: within 2 weeks Please Follow Up With: Donal Albright MD When: within 2 weeks Disposition: Home with Home Health Minutes spent on discharge:: 45 Patient Condition:: Stable Medical Necessity - Tobacco Use Smoking Status: Former smoker - 40 [id number] Tobacco Use: Cigarettes Meaningful Use Info Meaningful Use Diagnoses (Choose all that apply): None applicable Code Visit Inpatient E AND M: 30322 Disch Hosp 02/06/18 1642 <Electronically signed by Shirley Fabian MD> Date Shirley Fabian MD Cosigner Signature (if applicable): Date CC: Shirley Fabian MD; Bhupendra Oliveira MD Signed PROGRESS Observed: 02/13/2018 Status: COMPLETED Source: RUSSELL 9:22 AM [facility] REPOSITORY [facility] ID: [id number] Author: Saad (Rn) Larry Service: (none) Author Type: Registered Nurse Type: Progress Notes Filed: 02/13/2018 10:04 AM Note Text: PRIMARY CARE COORDINATION FOLLOW-UP NOTE Provider Action/FYI FYI Patient identified by name and date of . YES Spoke to patient Summary: TC to patient, [facility] is going to send patient the previous brand of nasal cannulas that have the harder plastic slide on tubing. Saad Silvestre RN Cleaning Supervisor plan for next outreach: Will follow up one week Signature Saad Silvestre RN February 13, 2018 PROGRESS Observed: 02/12/2018 Status: COMPLETED Source: RUSSELL 4:37 PM [facility] REPOSITORY [facility] ID: [id number] Author: Fernanda Reyes LPN Service: (none) Author Type: (none) Type: Progress Notes Filed: 02/13/2018 10:04 AM Note Text: Patient called and she wanted you to know she received the tubing Friday. Fernanda Reyes LPN PROGRESS Observed: 02/12/2018 Status: COMPLETED Source: RUSSELL 3:52 PM [facility] REPOSITORY [facility] ID: [id number] Author: Nanda Oliveira Service: (none) Author Type: Physician Type: Progress Notes Filed: 02/13/2018 10:04 AM Note Text: Med updates filed. Reviewed. PROGRESS Observed: 02/12/2018 Status: COMPLETED Source: RUSSELL 2:28 PM [facility] REPOSITORY [facility] ID: [id number] Author: Saad Allen) Larry Service: (none) Author Type: Registered Nurse Type: Progress Notes Filed: 02/12/2018 3:47 PM Note Text: TRANSITION CARE MANAGEMENT (TCM) INITIAL CONTACT Provider Action/FYI: PLEASE FILE MEDICATION UPDATES SOB when ambulating in apartment, normal resp resume after 30 minutes rest Frequent moist non-productive cough No chest pain BS this AM 256. Discussed pt has been and will continue on steroids which will cause pt's BS to be elevated. Instructed to call PCC if BS stay 250 or above, verbalized agreement. Initial contact with patient post discharge, spoke to patient, KENNEDY Greenfield nurse from [facility]. Patient identified by name and . SUMMARY: -Pt discharged from [facility] on 02/11. -Follow up appointment on 02/20. -Medication review done partially. -Admitted for: Acute on chronic combined hypoxic and hypercapnic respiratory failure. COPD exacerbation. Atrial fibrillation with RVR (Acute) CONCERNS: No chest pain SOB when ambulating in apartment, normal resp resume after 30 minutes rest Frequent moist non-productive cough BS this AM 256. Discussed pt has been and will continue on steroids which will cause pt's BS to be elevated. Instructed to call PCC if BS stay 250 or above, verbalized agreement. Pt didn't do nebulizer treatments after discharge one week ago because she ran out of nebulizer supplies. Also the part on her nasal cannula tubing to make the tubing snug under pt's chin is soft plastic and doesn't stay in place. Asking for PCC to call [facility] to send old type of tubing. TC to Kitty at [facility], discussed nasal cannula issue and asked them to send previous companies tubing. States they changed supplies with her and will go back to the previous supply. Discussed nebulizer supplies, states they sent some and it was delivered last . Informed pt was still in hospital. Asked pt to check in apt in case family member placed it somewhere and ask at apt office. TC to patient to check for nebulizer supplies. She has to finish her meal because her BS is dropping but will check after lunch. NEW MEDICATIONS: Prednisone 10 mg PO UD #30 tab Guaifenesin [Mucinex] 1,200 mg PO BID #20 tab Smz/Tmp Ds [Bactrim Ds] 1 tab PO BID #7 tab MEDS HELD/DISCONTINUED: None BRIEF HOSPITAL COURSE: Patient is a 63-year-old lady admitted with progressive shortness of breath. An acute hypoxic and hypercapnic respiratory failure made, admitted to a monitored bed for subsequent management. She was started on systemic corticosteroid. Empiric vancomycin and Zosyn were started based on previous culture result showing MRSA. She was also found to have positive UA, although she was vastly asymptomatic. Initially, she was on BiPAP for respiratory failure, changed to nocturnal use only. Overall, she was doing well. She has home care and home aids set up already. ID had recommended abx regimen with Bactrim DS until 02/14. Continue prednisone tapering dose. Plan to discharge and follow up as outpatient. 1. Acute hypoxic and hypercapnic respiratory failure secondary COPD exacerbation with MRSA respiratory infection possibly with pneumonia, given patient recent culture results: She was placed on noninvasive ventilation?BiPAP on admission and started on abx combination of vancomycin and Zosyn. 2. Recurrent UTI with E. coli Rocephin cultures during this current hospital stay came back negative; Rocephin discontinued. Continue Bactrim, which covers E. Coli. 3. Paroxysmal A. fib with RVR patient was started on Cardizem drip which has since been weaned off and started back on oral p.o. Cardizem 4. Hypertension patient blood pressure low on admission and antihypertensives held 5. Chronic hypoxic respiratory failure patient is on baseline home O2 6. A 1.1 cm opacity in the periphery of the right lower lobe. Patient informed of the results instructed to follow-up with PCP for repeat CT chest in 3 months. Also follow-up with her hotel maintenance technician Dr. Ramos with [facility] for repeat imaging studies 7. Hypokalemia. Low potassium was corrected. K+ 4.0 at the time of discharge. Bhupendra Oliveira MD [Primary Care Provider] - Please follow up with your Primary Care Physician in: 5 to 7 days. Disposition: Home with Home Health Saad Silvestre RN February 12, 2018 3:23 PM CNPTOUTREACH Observed: 02/12/2018 Status: COMPLETED Source: RUSSELL 12:00 AM [facility] REPOSITORY Patient Outreach ([facility]) TAMIA PANDA ([id number]) 1955 F Date Time Provider Department 02/12/18 SAAD SILVESTRE) CRYSTALPWS During your visit today, we recorded the following information about you: Saad Silvestre RN 02/12/2018 3:47 PM Addendum TRANSITION CARE MANAGEMENT (TCM) INITIAL CONTACT Provider Action/FYI: PLEASE FILE MEDICATION UPDATES SOB when ambulating in apartment, normal resp resume after 30 minutes rest Frequent moist non-productive cough No chest pain BS this AM 256. Discussed pt has been and will continue on steroids which will cause pt's BS to be elevated. Instructed to call PCC if BS stay 250 or above, verbalized agreement. Initial contact with patient post discharge, spoke to patient, KENNEDY Greenfield nurse from [facility]. Patient identified by name and . SUMMARY: -Pt discharged from [facility] on 02/11. -Follow up appointment on 02/20. -Medication review done partially. -Admitted for: Acute on chronic combined hypoxic and hypercapnic respiratory failure. COPD exacerbation. Atrial fibrillation with RVR (Acute) CONCERNS: No chest pain SOB when ambulating in apartment, normal resp resume after 30 minutes rest Frequent moist non-productive cough BS this AM 256. Discussed pt has been and will continue on steroids which will cause pt's BS to be elevated. Instructed to call PCC if BS stay 250 or above, verbalized agreement. Pt didn't do nebulizer treatments after discharge one week ago because she ran out of nebulizer supplies. Also the part on her nasal cannula tubing to make the tubing snug under pt's chin is soft plastic and doesn't stay in place. Asking for PCC to call [facility] to send old type of tubing. TC to Kitty at [facility], discussed nasal cannula issue and asked them to send previous companies tubing. States they changed supplies with her and will go back to the previous supply. Discussed nebulizer supplies, states they sent some and it was delivered last . Informed pt was still in hospital. Asked pt to check in apt in case family member placed it somewhere and ask at apt office. TC to patient to check for nebulizer supplies. She has to finish her meal because her BS is dropping but will check after lunch. NEW MEDICATIONS: Prednisone 10 mg PO UD #30 tab Guaifenesin [Mucinex] 1,200 mg PO BID #20 tab Smz/Tmp Ds [Bactrim Ds] 1 tab PO BID #7 tab MEDS HELD/DISCONTINUED: None BRIEF HOSPITAL COURSE: Patient is a 63-year-old lady admitted with progressive shortness of breath. An acute hypoxic and hypercapnic respiratory failure made, admitted to a monitored bed for subsequent management. She was started on systemic corticosteroid. Empiric vancomycin and Zosyn were started based on previous culture result showing MRSA. She was also found to have positive UA, although she was vastly asymptomatic. Initially, she was on BiPAP for respiratory failure, changed to nocturnal use only. Overall, she was doing well. She has home care and home aids set up already. ID had recommended abx regimen with Bactrim DS until 02/14. Continue prednisone tapering dose. Plan to discharge and follow up as outpatient. 1. Acute hypoxic and hypercapnic respiratory failure secondary COPD exacerbation with MRSA respiratory infection possibly with pneumonia, given patient recent culture results: She was placed on noninvasive ventilation?BiPAP on admission and started on abx combination of vancomycin and Zosyn. 2. Recurrent UTI with E. coli Rocephin cultures during this current hospital stay came back negative; Rocephin discontinued. Continue Bactrim, which covers E. Coli. 3. Paroxysmal A. fib with RVR patient was started on Cardizem drip which has since been weaned off and started back on oral p.o. Cardizem 4. Hypertension patient blood pressure low on admission and antihypertensives held 5. Chronic hypoxic respiratory failure patient is on baseline home O2 6. A 1.1 cm opacity in the periphery of the right lower lobe. Patient informed of the results instructed to follow-up with PCP for repeat CT chest in 3 months. Also follow-up with her hotel maintenance technician Dr. Ramos with [facility] for repeat imaging studies 7. Hypokalemia. Low potassium was corrected. K+ 4.0 at the time of discharge. Bhupendra Oliveira MD [Primary Care Provider] - Please follow up with your Primary Care Physician in: 5 to 7 days. Disposition: Home with Home Health Saad Silvestre RN February 12, 2018 3:23 PM Nanda Oliveira MD 02/13/2018 10:04 AM Signed Med updates filed. Reviewed. Fernanda Reyes LPN 02/13/2018 10:04 AM Signed Patient called and she wanted you to know she received the tubing Friday. Fernanda Silvestre RN 02/13/2018 10:04 AM Signed PRIMARY CARE COORDINATION FOLLOW-UP NOTE Provider Action/FYI FYI Patient identified by name and date of . YES Spoke to patient Summary: TC to patient, [facility] is going to send patient the previous brand of nasal cannulas that have the harder plastic slide on tubing. Saad Silvestre RN Cleaning Supervisor plan for next outreach: Will follow up one week Signature Saad Silvestre RN February 13, 2018 Allergies As of Date: 02/12/2018 Noted Allergy Reaction ADHESIVE TAPE (ROSINS) 04/04/2015 5 - Intolerance Comments: Surgical tape leaves rash Irritates skin badly and blisters along with medical tape CATS 04/10/2016 14 - Other: See Comments Comments: Congested and itchy, difficulty breathing DOGS 04/10/2016 14 - Other: See Comments Comments: Congestion, sneezing, and difficulty breathing ORPHENADRINE 04/10/2016 16 - Unknown CIPROFLOXACIN 12/11/2011 14 - Other: See Comments Comments: Red, hot, itchy rash KEFLEX (CEPHALEXIN) 07/10/2016 4 - Hives NIACIN 04/04/2015 16 - Unknown Comments: Pt states its niacin its niaspan PENICILLIN G 10/18/2004 PENICILLINS 04/04/2015 16 - Unknown REGLAN (METOCLOPRAMIDE HCL) 03/04/2017 14 - Other: See Comments Comments: Unable to sleep XANTHINES 10/18/2004 16 - Unknown ZOFRAN (ONDANSETRON HCL (PF)) 02/03/2018 9 - Itching Date Reviewed: 02/03/2018 Reviewed by: Yessi Sanchez LPN - Fully Assessed Reason for Visit: Transition Of Care [4074] Primary Visit Diagnosis:Urinary tract infection without hematuria, site unspecified [N39.0] Other Visit Diagnosis:COPD with exacerbation (HCC) [J44.1] Order(s):sulfamethoxazole-trimethoprim (BACTRIM DS) 800-160 mg per tabletTake 1 tablet by mouth twice daily for 7 doses.Disp: 7 tabletRfl: 0 predniSONE (DELTASONE) 10 mg tabletTake 40 mg x 5 days, 20 mg x 5 days, 10 mg x 5 days. Take with foodDisp: 30 tabletRfl: 0 Pseudoephedrine-guaiFENesin (MUCINEX D MAXIMUM STRENGTH) 120-1,200 mg [id number] 1 tablet by mouth twice daily.Disp: Rfl: Prescriptions as of 02/12/2018 Sig: SULFAMETHOXAZOLE 800 MG-TRIME* Take 1 tablet by mouth twice * PREDNISONE 10 MG TABLET Take 40 mg x 5 days, 20 mg x * PSEUDOEPHEDRINE-GUAIFENESIN E* Take 1 tablet by mouth twice * SUCRALFATE 100 MG/ML ORAL GISELLE* Take 10 mL by mouth every 6 h* PANTOPRAZOLE ORAL LIQUID 40 M* Take 20 mL by mouth twice cady* ESTRADIOL 0.01% (0.1 MG/GRAM)* Apply pea-sized amount to per* COMPOUNDED PRESCRIPTION Please fit for BiPAP mask. INSULIN GLARGINE (U-100) 100 * Inject 56 Units subcutaneousl* ONETOUCH ULTRA BLUE TEST STRIP USE DIRECTED TO CHECK BLOO* ONETOUCH DELICA LANCETS 30 GA* USE TO CHECK BLOOD SUGAR 4-5 * INSULIN GLARGINE (U-100) 100 * Inject 56 units subcutaneousl* BIPAP Bilevel PAP 15/11 cmH2O with * Patient not taking: Reported on 01/23/2018 COMPOUNDED PRESCRIPTION OCD Titration for portable ox* MUPIROCIN 2 % TOPICAL OINTMENT Apply 1 application to affect* PROMETHAZINE 25 MG TABLET Take 1 tablet by mouth every * INSULIN LISPRO (U-200) 200 UN* Inject subcutaneously 14 unit* Patient taking differently: 14 Units. Inject subcutaneous* LYRICA 100 MG CAPSULE TAKE 1 CAPSULE BY MOUTH THREE* CAPSAICIN 0.075 % TOPICAL CRE* Apply 1 application to affect* ULTICARE PEN NEEDLE 31 GAUGE * USE DIRECTED. TO INJECT IN* VITAMIN C 500 MG TABLET TAKE 1 TABLET BY MOUTH DAILY FERROUS GLUCONATE 324 MG (38 * TAKE 1 TABLET BY MOUTH DAILY * STOOL SOFTENER 100 MG CAPSULE TAKE 1 CAPSULE BY MOUTH DAILY CLAUDIA-KYLE 8.6 MG TABLET TAKE 1 TABLET BY MOUTH TWICE * ISOSORBIDE MONONITRATE ER 60 * Take 1.5 tablets by mouth onc* ATORVASTATIN 40 MG TABLET TAKE 1 TABLET BY MOUTH DAILY DILTIAZEM SR 180 MG 24 HR CAP TAKE 1 CAPSULE BY MOUTH EVERY* LEVOTHYROXINE 100 MCG TABLET TAKE 1 TABLET BY MOUTH EVERY * ELIQUIS 2.5 MG TABLET TAKE 1 TABLET BY MOUTH TWICE * NITROGLYCERIN 0.4 MG SUBLINGU* DISSOLVE 1 TAB UNDER THE TONG* METOPROLOL TARTRATE 50 MG TAB* Take 1 tablet by mouth twice * GLUCOSE 4 GRAM CHEWABLE TABLET Take 4 tablets by mouth as ne* OXYGEN (HOME THERAPY) Inhale 3 L/min as instructed * FLUTICASONE 50 MCG/ACTUATION * Use 2 Sprays in each nostril * METFORMIN ER 500 MG TABLET,EX* Take 2 tablets by mouth twice* DULOXETINE 60 MG CAPSULE,MARIA EUGENIA* Take 1 capsule by mouth once * ASPIRIN 81 MG TABLET,DELAYED * Take 1 tablet by mouth every * FUROSEMIDE 40 MG TABLET Take 1 tablet by mouth twice * ALBUTEROL SULFATE HFA 90 MCG/* Inhale 2 Puffs as instructed * COMPOUNDED PRESCRIPTION Evaluation for diabetic shoes* INCONTINENCE PAD, LINER, DISP* 1 Device as needed (urinary i* COMPOUNDED PRESCRIPTION BLOOD PRESSURE CUFF FOR HOME * BLOOD-GLUCOSE METER KIT UAD to test blood sugar ALCOHOL SWABS UAD to clean skin before test* Problem List As Of Date 02/12/2018 Noted Resolved SUBJECTIVE TINNITUS [H93.19] INVALID FOR* PARESH treated with BiPAP [G47.33] INVALID FOR* Hyperlipidemia [E78.5] INVALID FOR* Coronary disease [I25.10] INVALID FOR* Diabetes mellitus, type II ([facility]) [E11.9] INVALID FOR* Morbid obesity ([facility]) [E66.01] Hypothyroidism [E03.9] Anxiety [F41.9] Sleep apnea [G47.30] 02/14/2017 Essential hypertension [I10] Coronary artery disease of port lions artery of stoney* AF (paroxysmal atrial fibrillation) ([facility]) [I48.* COPD (chronic obstructive pulmonary disease) (H* GERD without esophagitis [K21.9] Dysphagia [R13.10] Constipation [K59.00] DM type 2 (diabetes mellitus, type 2) ([facility]) [E1* 02/14/2017 Shortness of breath [R06.02] 02/14/2017 Arthritis [M19.90] More... CHF (congestive heart failure) ([facility]) [I50.9] BPPV (benign paroxysmal positional vertigo) [H8*INVALID FOR* RLS (restless legs syndrome) [G25.81] INVALID FOR* Iron deficiency concern: RE RLS [E61.1] INVALID FOR* Tubular adenoma [D36.9] INVALID FOR* Incontinence [R32] More... Gastroparesis [K31.84] INVALID FOR* Pre-op testing [Z01.818] INVALID FOR* More... Hypercapnia [R06.89] INVALID FOR* S/P coronary artery stent placement [Z95.5] INVALID FOR* Stage 3 chronic kidney disease [N18.3] INVALID FOR* Depression [F32.9] INVALID FOR* Prescriptions ordered this encounter Disp Refills Start End SULFAMETHOXAZOLE 800 MG-TRIMETHOPRIM* 7 ta* 0 02/12/2018 02/16/2018 Class: Med Update Route: ORAL Sig: Take 1 tablet by mouth twice daily for 7 doses. PREDNISONE 10 MG TABLET 30 t* 0 02/12/2018 Class: Med Update Sig: Take 40 mg x 5 days, 20 mg x 5 days, 10 mg x 5 days. Take with food PSEUDOEPHEDRINE-GUAIFENESIN ER 120 M* 02/12/2018 Class: Med Update Route: ORAL Sig: Take 1 tablet by mouth twice daily. Encounter Status:Closed by LARRYSAAD on 02/13/18 DISCHARGE SUMMARY Observed: 02/11/2018 Status: F Source: KINJAL 2:54 PM [facility] [place] REPOSITORY [facility] Medical Records Department [address] [place] [address] Discharge Summary 02/11/18 1441 MR#: [id number] Acct: [id number] Name: TAMIA PANDA Rep #: [id number] : 1955 63 From: Shruthi Christie MD PCP: Bhupendra Oliveira MD Status: ADM IN Y Location: [place] [address] Discharge Date and Diagnosis - Problem List Patient Problems: Active and Suspected Problems Atrial fibrillation with RVR (Acute) Date of Admission: 02/07/18 Date of Discharge: 02/11/18 - Primary Discharge Diagnosis Active and Suspected Problems Acute on chronic combined hypoxic and hypercapnic respiratory failure. COPD exacerbation. Atrial fibrillation with rapid ventricular response. - Secondary Discharge Diagnosis Chronic Problems Diabetes mellitus type 2 in obese (Chronic) Coronary arteriosclerosis (Chronic) cath 05/2015 mild-moderate disease medical therapy recommended Hypothyroidism (Chronic) Hyperlipemia (Chronic) GERD (gastroesophageal reflux disease) (Chronic) Hypertension (Chronic) COPD (chronic obstructive pulmonary disease) (Chronic) Chronic respiratory insufficiency (Chronic) On home oxygen at night S/P PTCA (percutaneous transluminal coronary angioplasty) (Chronic) PARESH (obstructive sleep apnea) (Chronic) Hospital Course and Treatment Imaging Results: Diagnostic Data Chest X-Ray 02/08/18 16:38 IMPRESSION: PICC line placement with tip in distal superior vena cava Electronically Signed: John Chavez MD at 18:15 EDT , Service support , Chest CTA 02/08/18 23:29 IMPRESSION: There is no evidence of pulmonary embolism, aortic aneurysm or aortic dissection. There are mild chronic changes in both lungs, right greater than left. There is no focal consolidation. There is no pleural effusion. Prominent lymph nodes in the mediastinum are likely reactive. The lymph nodes have decreased in size compared to the prior CT. There is a 1.1 cm opacity in the periphery of the right lower lobe. A follow-up CT of the chest is recommended in three months. Electronically Signed: Lizette Sutherland MD at 23:31 EDT Tel Direct: [phone], Service support , Esthetician/Spa Coordinator: Dr. Montanez, ID. Operations: None Procedures: None Summary of Care Provided: Patient is a 63-year-old lady admitted with progressive shortness of breath. An acute hypoxic and hypercapnic respiratory failure made, admitted to a monitored bed for subsequent management. She was started on systemic corticosteroid. Empiric vancomycin and Zosyn were started based on previous culture result showing MRSA. She was also found to have positive UA, although she was vastly asymptomatic. Initially, she was on BiPAP for respiratory failure, changed to nocturnal use only. Overall, she was doing well. She has home care and home aids set up already. ID had recommended abx regimen with Bactrim DS until 02/14. Continue prednisone tapering dose. Plan to discharge and follow up as outpatient. 1. Acute hypoxic and hypercapnic respiratory failure secondary COPD exacerbation with MRSA respiratory infection possibly with pneumonia, given patient recent culture results: She was placed on noninvasive ventilation BiPAP on admission and started on abx combination of vancomycin and Zosyn. 2. Recurrent UTI with E. coli Rocephin cultures during this current hospital stay came back negative; Rocephin discontinued. Continue Bactrim, which covers E. Coli. 3. Paroxysmal A. fib with RVR patient was started on Cardizem drip which has since been weaned off and started back on oral p.o. Cardizem 4. Coronary artery disease catheterization performed in 2018 demonstrated single-vessel coronary artery disease of left circumflex, occluded very small left circumflex with right to left collateral. LV gram EF 75%. Mid LAD 40%, distal LAD 60% mid circumflex occluded with [id number] collateral. Mid RCA less than 30%, right PDA less than 30% 5. Hypertension patient blood pressure low on admission and antihypertensives held 6. Hypothyroidism-patient is on levothyroxine home dose continued 7. Chronic hypoxic respiratory failure patient is on baseline home O2 8. Diabetes mellitus type 2 patient is a long acting insulin dose adjusted also placed on Accu-Cheks before meals and at bedtime covered with sliding scale insulin 9. Dyslipidemia-patient is on statin therapy, continued at home dose 10. Morbid obesity with BMI of 35.6 weight loss advised 11. Obstructive sleep apnea 12. GERD on PPI 13. A 1.1 cm opacity in the periphery of the right lower lobe. Patient informed of the results instructed to follow-up with PCP for repeat CT chest in 3 months. Also follow-up with her hotel maintenance technician Dr. Ramos with [facility] for repeat imaging studies 14. hypokalemia. Low potassium was corrected. K+ 4.0 at the time of discharge. Discharge Activity: Return to Normal Activity Home Medications: Medications to take at Discharge Albuterol Inhaler [Ventolin Hfa] 2 puff INHALATION Q4H PRN PRN 02/03/18 Apixaban [Eliquis] 2.5 mg PO BID 02/03/18 Ascorbic Acid [Vitamin C] 500 mg PO DAILY@0800 02/03/18 Aspirin [Aspirin, Baby] 81 mg PO DAILY@0800 02/03/18 Atorvastatin Calcium [Lipitor] 40 mg PO QHS 02/03/18 Capsaicin 1 dose TP 4X/DAY 02/03/18 Diltiazem HCl [Cartia Xt] 180 mg PO DAILY 02/03/18 Docusate Sodium [Stool Softener] 100 mg PO DAILY PRN PRN 02/03/18 Duloxetine Hcl [Cymbalta] 60 mg PO DAILY 02/03/18 Estradiol 1 dose VG MOWEFR 02/03/18 Ferrous Gluconate 325 mg PO DAILY@0800 02/03/18 Fluticasone 0.05% [Flonase Nasal Cambria] 2 spray NASAL DAILY 02/03/18 Furosemide [Lasix] 40 mg PO BIDLX 02/03/18 Insulin Glargine,Hum.rec.anlog [Lantus] 56 unit SQ BID 02/03/18 Insulin Lispro [Humalog KwikPen] 22 unit SQ LUNCH 02/03/18 Insulin Lispro [Humalog KwikPen] 24 unit SQ DINNER 02/03/18 Insulin Lispro [Humalog] 14 unit SQ BREAKFAST 02/03/18 Isosorbide Mononitrate [Imdur] 90 mg PO DAILY 02/03/18 Levothyroxine [Synthroid] 100 mcg PO DAILY 02/03/18 Metformin HCl [Metformin HCl ER] 1,000 mg PO BID 02/03/18 Oxycodone HCl [Roxicodone] 5 - 10 mg PO Q4H PRN 02/03/18 Pantoprazole Sodium [Protonix] 40 mg PO BID 02/03/18 Pregabalin [Lyrica] 100 mg PO TID 02/03/18 Sennosides [Claudia-Kyle] 8.6 mg PO BID 02/03/18 Sucralfate [Carafate] 1 gm PO 4X/DAY 02/03/18 proMETHazine tablet [Phenergan tablet] 25 mg PO Q6H PRN PRN 02/03/18 Glucerna Shake 120 ml PO 4X/DAY #100 liquid 02/05/18 Ipratropium/Albuterol Sulfate [Duoneb] 3 ml INHALATION Q4H.RT #100 ampul.neb 02/05/18 Metoprolol Tartrate [Lopressor (beta sudhakar)] 100 mg PO BID #60 tab 02/05/18 Guaifenesin [Mucinex] 1,200 mg PO BID #20 tab 02/11/18 Ipratropium/Albuterol Sulfate [Duoneb] 3 ml INHALATION Q4H.RT ampul.neb 02/11/18 Prednisone 10 mg PO UD #30 tab 02/11/18 Smz/Tmp Ds [Bactrim Ds] 1 tab PO BID #7 tab 02/11/18 Following Prescrptions Were Given to Patient: Prednisone 10 mg PO UD #30 tab Guaifenesin [Mucinex] 1,200 mg PO BID #20 tab Smz/Tmp Ds [Bactrim Ds] 1 tab PO BID #7 tab Primary Care Physician: Bhupendra Oliveira MD [Primary Care Provider] - Please follow up with your Primary Care Physician in: 5 to 7 days. Disposition: Home with Home Health Patient Condition:: Stable Medical Necessity - Tobacco Use Smoking Status: Former smoker Meaningful Use Info Meaningful Use Diagnoses (Choose all that apply): None applicable Code Visit Inpatient E AND M: 93101 Disch Hosp 02/11/18 1454 <Electronically signed by Shruthi Christie MD> Date Shruthi Christie MD Cosigner Signature (if applicable): Date CC: Bhupendra Oliveira MD; Shruthi Christie M.D. Signed DISCHARGE INSTRUCTION Observed: 02/11/2018 Status: F Source: MEARS 2:34 PM [facility] REPOSITORY [facility] Medical Records Department [address] [place] [address] Instructions for Home/Discharge Instructions 02/11/18 1432 MR#: [id number] Acct: [id number] Name: TAMIA PANDA Rep #: [id number] : 1955 63 From: Shruthi Christie MD PCP: Bhupendra Oliveira MD Status: ADM IN - Discharge Diagnoses Current Active Problems: Current Active and Chronic Problems Atrial fibrillation with RVR (Acute) You will use the following diet at home:: Calorie/Carbohydrate Controlled (specify 1200, 1400, etc) - 2000 harmeet diet Your food should be the consistency of: Regular Your liquids should be the consistency of: Regular/Thin Discharge Activity: Return to Normal Activity Allergies/Adverse Reactions: Allergies ciprofloxacin [From Cipro] Allergy (Verified 02/07/18 19:42) Hives latex Allergy (Verified 02/07/18 19:42) matos me niacin [From Niaspan Extended-Release] Allergy (Verified 02/07/18 19:42) Hives ondansetron [From Zofran] Allergy (Verified 02/07/18 19:42) Unknown Xanthines Allergy (Verified 02/07/18 19:42) Unknown Penicillins Adverse Reaction (Mild, Verified 02/07/18 19:42) Itching/redness orphenadrine citrate [From Norgesic] Adverse Reaction (Verified 02/07/18 19:42) groggy medical tape Adverse Reaction (Uncoded 02/07/18 19:42) blisters Medications to take at Discharge Albuterol Inhaler [Ventolin Hfa] 2 puff INHALATION Q4H PRN PRN 02/03/18 Apixaban [Eliquis] 2.5 mg PO BID 02/03/18 Ascorbic Acid [Vitamin C] 500 mg PO DAILY@0800 02/03/18 Aspirin [Aspirin, Baby] 81 mg PO DAILY@0800 02/03/18 Atorvastatin Calcium [Lipitor] 40 mg PO QHS 02/03/18 Capsaicin 1 dose TP 4X/DAY 02/03/18 Diltiazem HCl [Cartia Xt] 180 mg PO DAILY 02/03/18 Docusate Sodium [Stool Softener] 100 mg PO DAILY PRN PRN 02/03/18 Duloxetine Hcl [Cymbalta] 60 mg PO DAILY 02/03/18 Estradiol 1 dose VG MOWEFR 02/03/18 Ferrous Gluconate 325 mg PO DAILY@0800 02/03/18 Fluticasone 0.05% [Flonase Nasal Cambria] 2 spray NASAL DAILY 02/03/18 Furosemide [Lasix] 40 mg PO BIDLX 02/03/18 Insulin Glargine,Hum.rec.anlog [Lantus] 56 unit SQ BID 02/03/18 Insulin Lispro [Humalog KwikPen] 22 unit SQ LUNCH 02/03/18 Insulin Lispro [Humalog KwikPen] 24 unit SQ DINNER 02/03/18 Insulin Lispro [Humalog] 14 unit SQ BREAKFAST 02/03/18 Isosorbide Mononitrate [Imdur] 90 mg PO DAILY 02/03/18 Levothyroxine [Synthroid] 100 mcg PO DAILY 02/03/18 Metformin HCl [Metformin HCl ER] 1,000 mg PO BID 02/03/18 Oxycodone HCl [Roxicodone] 5 - 10 mg PO Q4H PRN 02/03/18 Pantoprazole Sodium [Protonix] 40 mg PO BID 02/03/18 Pregabalin [Lyrica] 100 mg PO TID 02/03/18 Sennosides [Claudia-Kyle] 8.6 mg PO BID 02/03/18 Sucralfate [Carafate] 1 gm PO 4X/DAY 02/03/18 proMETHazine tablet [Phenergan tablet] 25 mg PO Q6H PRN PRN 02/03/18 Glucerna Shake 120 ml PO 4X/DAY #100 liquid 02/05/18 Ipratropium/Albuterol Sulfate [Duoneb] 3 ml INHALATION Q4H.RT #100 ampul.neb 02/05/18 Metoprolol Tartrate [Lopressor (beta sudhakar)] 100 mg PO BID #60 tab 02/05/18 Guaifenesin [Mucinex] 1,200 mg PO BID #20 tab 02/11/18 Ipratropium/Albuterol Sulfate [Duoneb] 3 ml INHALATION Q4H.RT ampul.neb 02/11/18 Prednisone 10 mg PO UD #30 tab 02/11/18 Smz/Tmp Ds [Bactrim Ds] 1 tab PO BID #7 tab 02/11/18 The following prescriptions were given: Prednisone 10 mg PO UD #30 tab Guaifenesin [Mucinex] 1,200 mg PO BID #20 tab Smz/Tmp Ds [Bactrim Ds] 1 tab PO BID #7 tab Primary Care Physician: Bhupendra Oliveira MD [Primary Care Provider] - Please follow up with your Primary Care Physician in: 5 to 7 days. 02/11/18 1434 <Electronically signed by Shruthi Christie MD> Date Shruthi Christie MD CC: Bhupendra Oliveira MD; Syed Montanez MD BASIC METABOLIC Collected: 02/11/2018 Status: F Source: KINJAL PROFILE (BMP) 1:30 PM [facility] REPOSITORY Order Comment: NURSE DRAW SENT LABEL AND TUBE TO FLOOR AND SPOKE TO [facility] TO LET THEM KNOW IT WAS ON ITS WAY. TYPE CODE TESTS RESULT OUT OF RANGE REFERENCE UNITS LAB L501.0100 74-106 mg/dL High GLU 273 Result Comment: Glucose result greater than or equal to 200 mg/dL suggests DIABETES MELLITUS per A.D.A. criteria. Please note revised GLUCOSE reference range effective 2017. LAB L501.1000 7-18 mg/dL Normal BUN 18 LAB L501.1100 0.55-1.02 mg/dL Normal CREAT,SERUM 0.78 Result Comment: The validity of the calculated GFR AND GFRAA in patients over 70 years has not been determined. Clinical correlation is essential. LAB L501.1110 >60 mL/min Normal EST GFR 80 Result Comment: Non- GFR Calc LAB L501.1115 >60 mL/min Normal EST GFR - AA 97 Result Comment: GFR Calc LAB L501.1255 ml/min Normal Estimated CRCL 63.75 LAB L501.1300 10-20 RATIO High BUN/CRE 23.2 LAB L501.2200 8.5-10 mg/dL Low .1 CA 8.3 LAB L501.5300 136-14 mmol/L Normal 5 NA 139 LAB L501.5600 3.5-5. mmol/L Normal 1 K 4.0 LAB L501.5900 98-107 mmol/L Normal CL 101 LAB L501.6100 21.0-3 mmol/L High 2.0 CO2 33.0 LAB L501.6200 5-15 Normal GAP 5 Performed By: #### L500.2500 #### [facility] [address] [place], [place], [address] BEDSIDE GLUCOSE Collected: 02/11/2018 Status: F Source: MEARS 11:28 AM [facility] REPOSITORY TYPE CODE TESTS RESULT OUT OF REFERENCE UNITS RANGE LAB L501.080 70-110 mg/dL High BEDSIDE GLU 281 Result Comment: MANAGEMENT OF PATIENT CARE PER NURSING PROTOCOL Performed By: #### L501.080 #### [facility] Point of Care [address] [place], [place] [id number] BEDSIDE GLUCOSE Collected: 02/11/2018 Status: F Source: MEARS 7:05 AM [facility] REPOSITORY TYPE CODE TESTS RESULT OUT OF REFERENCE UNITS RANGE LAB L501.080 70-110 mg/dL High BEDSIDE GLU 164 Result Comment: MANAGEMENT OF PATIENT CARE PER NURSING PROTOCOL Performed By: #### L501.080 #### [facility] Point of Care [address] [place], [place] [id number] CNPN Observed: 02/11/2018 Status: COMPLETED Source: [place]ERMAN 12:00 AM [facility] REPOSITORY Telephone (NEMSolum) TAMIA PANDA ([id number]) 1955 F Date Time Provider Department 02/11/18 SHAN MIDDLETON During your visit today, we recorded the following information about you: Akiko Garcia LPN 02/11/2018 10:34 AM Signed patient is scheduled for titration @ [facility] on 02/23/2018 and needing an updated order. Please file, will then fax to [facility] Sleep lab. Thanks Akiko Garcia LPN 02/12/2018 1:53 PM Signed order faxed. Allergies As of Date: 02/11/2018 Noted Allergy Reaction ADHESIVE TAPE (ROSINS) 04/04/2015 5 - Intolerance Comments: Surgical tape leaves rash Irritates skin badly and blisters along with medical tape CATS 04/10/2016 14 - Other: See Comments Comments: Congested and itchy, difficulty breathing DOGS 04/10/2016 14 - Other: See Comments Comments: Congestion, sneezing, and difficulty breathing ORPHENADRINE 04/10/2016 16 - Unknown CIPROFLOXACIN 12/11/2011 14 - Other: See Comments Comments: Red, hot, itchy rash KEFLEX (CEPHALEXIN) 07/10/2016 4 - Hives NIACIN 04/04/2015 16 - Unknown Comments: Pt states its niacin its niaspan PENICILLIN G 10/18/2004 PENICILLINS 04/04/2015 16 - Unknown REGLAN (METOCLOPRAMIDE HCL) 03/04/2017 14 - Other: See Comments Comments: Unable to sleep XANTHINES 10/18/2004 16 - Unknown ZOFRAN (ONDANSETRON HCL (PF)) 02/03/2018 9 - Itching Date Reviewed: 02/03/2018 Reviewed by: Yessi Sanchez LPN - Fully Assessed Reason for Visit: Orders [681] Cmt: titration PSG Primary Visit Diagnosis:PARESH treated with BiPAP [G47.33] Order(s):PAP TITRATION PSG (CPAP, BIPAP, ASV) [3894843] Order #: [id number] FUTURE Prescriptions as of 02/11/2018 Sig: SUCRALFATE 100 MG/ML ORAL GISELLE* Take 10 mL by mouth every 6 h* PANTOPRAZOLE ORAL LIQUID 40 M* Take 20 mL by mouth twice cady* ESTRADIOL 0.01% (0.1 MG/GRAM)* Apply pea-sized amount to per* COMPOUNDED PRESCRIPTION Please fit for BiPAP mask. INSULIN GLARGINE (U-100) 100 * Inject 56 Units subcutaneousl* ONETOUCH ULTRA BLUE TEST STRIP USE DIRECTED TO CHECK BLOO* ONETOUCH DELICA LANCETS 30 GA* USE TO CHECK BLOOD SUGAR 4-5 * INSULIN GLARGINE (U-100) 100 * Inject 56 units subcutaneousl* BIPAP Bilevel PAP 15/11 cmH2O with * Patient not taking: Reported on 01/23/2018 COMPOUNDED PRESCRIPTION OCD Titration for portable ox* MUPIROCIN 2 % TOPICAL OINTMENT Apply 1 application to affect* PROMETHAZINE 25 MG TABLET Take 1 tablet by mouth every * INSULIN LISPRO (U-200) 200 UN* Inject subcutaneously 14 unit* Patient taking differently: 14 Units. Inject subcutaneous* LYRICA 100 MG CAPSULE TAKE 1 CAPSULE BY MOUTH THREE* CAPSAICIN 0.075 % TOPICAL CRE* Apply 1 application to affect* ULTICARE PEN NEEDLE 31 GAUGE * USE DIRECTED. TO INJECT IN* VITAMIN C 500 MG TABLET TAKE 1 TABLET BY MOUTH DAILY FERROUS GLUCONATE 324 MG (38 * TAKE 1 TABLET BY MOUTH DAILY * STOOL SOFTENER 100 MG CAPSULE TAKE 1 CAPSULE BY MOUTH DAILY CLAUDIA-KYLE 8.6 MG TABLET TAKE 1 TABLET BY MOUTH TWICE * ISOSORBIDE MONONITRATE ER 60 * Take 1.5 tablets by mouth onc* ATORVASTATIN 40 MG TABLET TAKE 1 TABLET BY MOUTH DAILY DILTIAZEM SR 180 MG 24 HR CAP TAKE 1 CAPSULE BY MOUTH EVERY* LEVOTHYROXINE 100 MCG TABLET TAKE 1 TABLET BY MOUTH EVERY * ELIQUIS 2.5 MG TABLET TAKE 1 TABLET BY MOUTH TWICE * NITROGLYCERIN 0.4 MG SUBLINGU* DISSOLVE 1 TAB UNDER THE TONG* METOPROLOL TARTRATE 50 MG TAB* Take 1 tablet by mouth twice * GLUCOSE 4 GRAM CHEWABLE TABLET Take 4 tablets by mouth as ne* OXYGEN (HOME THERAPY) Inhale 3 L/min as instructed * FLUTICASONE 50 MCG/ACTUATION * Use 2 Sprays in each nostril * METFORMIN ER 500 MG TABLET,EX* Take 2 tablets by mouth twice* DULOXETINE 60 MG CAPSULE,MARIA EUGENIA* Take 1 capsule by mouth once * ASPIRIN 81 MG TABLET,DELAYED * Take 1 tablet by mouth every * FUROSEMIDE 40 MG TABLET Take 1 tablet by mouth twice * ALBUTEROL SULFATE HFA 90 MCG/* Inhale 2 Puffs as instructed * COMPOUNDED PRESCRIPTION Evaluation for diabetic shoes* INCONTINENCE PAD, LINER, DISP* 1 Device as needed (urinary i* COMPOUNDED PRESCRIPTION BLOOD PRESSURE CUFF FOR HOME * BLOOD-GLUCOSE METER KIT UAD to test blood sugar ALCOHOL SWABS UAD to clean skin before test* Problem List As Of Date 02/11/2018 Noted Resolved SUBJECTIVE TINNITUS [H93.19] INVALID FOR* PARESH treated with BiPAP [G47.33] INVALID FOR* Hyperlipidemia [E78.5] INVALID FOR* Coronary disease [I25.10] INVALID FOR* Diabetes mellitus, type II ([facility]) [E11.9] INVALID FOR* Morbid obesity ([facility]) [E66.01] Hypothyroidism [E03.9] Anxiety [F41.9] Sleep apnea [G47.30] 02/14/2017 Essential hypertension [I10] Coronary artery disease of [place] artery of stoney* AF (paroxysmal atrial fibrillation) ([facility]) [I48.* COPD (chronic obstructive pulmonary disease) (H* GERD without esophagitis [K21.9] Dysphagia [R13.10] Constipation [K59.00] DM type 2 (diabetes mellitus, type 2) ([facility]) [E1* 02/14/2017 Shortness of breath [R06.02] 02/14/2017 Arthritis [M19.90] More... CHF (congestive heart failure) ([facility]) [I50.9] BPPV (benign paroxysmal positional vertigo) [H8*INVALID FOR* RLS (restless legs syndrome) [G25.81] INVALID FOR* Iron deficiency concern: RE RLS [E61.1] INVALID FOR* Tubular adenoma [D36.9] INVALID FOR* Incontinence [R32] More... Gastroparesis [K31.84] INVALID FOR* Pre-op testing [Z01.818] INVALID FOR* More... Hypercapnia [R06.89] INVALID FOR* S/P coronary artery stent placement [Z95.5] INVALID FOR* Stage 3 chronic kidney disease [N18.3] INVALID FOR* Depression [F32.9] INVALID FOR* Encounter Status:Closed by MD SHAN MIDDLETON on 02/11/18 BEDSIDE GLUCOSE Collected: 02/10/2018 Status: F Source: KINJAL 9:17 PM [facility] REPOSITORY TYPE CODE TESTS RESULT OUT OF REFERENCE UNITS RANGE LAB L501.080 70-110 mg/dL High BEDSIDE GLU 273 Result Comment: MANAGEMENT OF PATIENT CARE PER NURSING PROTOCOL Performed By: #### L501.080 #### [facility] Point of Care [address] [place] [address] BEDSIDE GLUCOSE Collected: 02/10/2018 Status: F Source: KINJAL 4:09 PM [facility] REPOSITORY TYPE CODE TESTS RESULT OUT OF REFERENCE UNITS RANGE LAB L501.080 70-110 mg/dL High BEDSIDE GLU 224 Result Comment: MANAGEMENT OF PATIENT CARE PER NURSING PROTOCOL Performed By: #### L501.080 #### [facility] Point of Care [address] [place] [address] BEDSIDE GLUCOSE Collected: 02/10/2018 Status: F Source: KINJAL 11:27 AM [facility] REPOSITORY TYPE CODE TESTS RESULT OUT OF REFERENCE UNITS RANGE LAB L501.080 70-110 mg/dL High BEDSIDE GLU 345 Result Comment: MANAGEMENT OF PATIENT CARE PER NURSING PROTOCOL Performed By: #### L501.080 #### [facility] Point of Care [address] [place] [address] BEDSIDE GLUCOSE Collected: 02/10/2018 Status: F Source: KINJAL 6:36 AM [facility] REPOSITORY TYPE CODE TESTS RESULT OUT OF REFERENCE UNITS RANGE LAB L501.080 70-110 mg/dL High BEDSIDE GLU 229 Result Comment: MANAGEMENT OF PATIENT CARE PER NURSING PROTOCOL Performed By: #### L501.080 #### [facility] Point of Care [address] [place] [address] VANCOMYCIN, TROUGH Collected: 02/10/2018 Status: F Source: KINJAL LEVEL 5:00 AM [facility] REPOSITORY Order Comment: Comments: PLEASE DRAW 30MIN PRIOR TO DOSE ON 02/10 @0500 SPECIMEN OBTAINED FROM LINE DRAW TYPE CODE TESTS RESULT OUT OF RANGE REFERENCE UNITS LAB L501.8820 5.0-15.0 ug/mL Normal VANCO, TROUGH 5.2 Result Comment: VANCOMYCIN STANDARED DRUG THERAPY TROUGH LEVEL: 5.0 - 15.0 mg/L VANCOMYCIN HIGH INTENSITY THERAPY TROUGH LEVEL: 15.0 - 20.0 mg/L High Intensity therapy recommended for serious life threatening infections include: - Meningitis -Endocarditis -Pneumonia (Ventilator/Healtcare Associated) -Sepsis PLEASE CONTACT PHARMACY SERVICES (#[id number]) FOR INTERPRETATION OF RESULTS. Performed By: #### L501.8820 #### [facility] [address] [place], [address] BEDSIDE GLUCOSE Collected: 02/09/2018 Status: F Source: MEARS 10:34 PM [facility] REPOSITORY TYPE CODE TESTS RESULT OUT OF REFERENCE UNITS RANGE LAB L501.080 70-110 mg/dL High BEDSIDE GLU 256 Result Comment: Insulin Given MANAGEMENT OF PATIENT CARE PER NURSING PROTOCOL Performed By: #### L501.080 #### [facility] Point of Care [address] [facility] [place] [address] BEDSIDE GLUCOSE Collected: 02/09/2018 Status: F Source: MEARS 5:09 PM [facility] REPOSITORY TYPE CODE TESTS RESULT OUT OF REFERENCE UNITS RANGE LAB L501.080 70-110 mg/dL High BEDSIDE GLU 271 Result Comment: MANAGEMENT OF PATIENT CARE PER NURSING PROTOCOL Performed By: #### L501.080 #### [facility] Point of Care [address] [facility] [place] [address] 12 LEAD ELECTROCARDIOGRAM Observed: 02/09/2018 Status: F Source: MEARS 2:32 PM [facility] REPOSITORY [facility] Cardiovascular Services [address] [place] [id number] 12 Lead EKG 02/07/18 1950 MR#: [id number] Acct: [id number] Name: TAMIA PANDA Rep #: [id number] : 1955 63 From: Bart Blas MD Attending Dr: Yvon Hogan MD Status: ADM IN Ordering Dr: John Hodge MD Date: 02/07/18 Location: [facility] Sex: F C Admitted: 02/07/18 Test Reason : Blood Pressure : / mmHG Vent. Rate : 137 BPM Atrial Rate : 258 BPM P-R Int : 000 ms QRS Dur : 076 ms QT Int : 312 ms P-R-T Axes : 000 -18 155 degrees QTc Int : 471 ms Atrial fibrillation with premature ventricular or aberrantly conducted complexes ST AND T wave abnormality, consider lateral ischemia Abnormal ECG Confirmed by BART BLAS MD ([id number]), senior technical editor SHYANNE TERRAZAS ([id number]) on 02/09/2018 2:31:39 PM Referred By: GAURANG 02/09/18 1431 Date Bart Blas MD CC: Bhupendra Oliveira MD; Yvon Hogan MD; John Hodge MD Signed CONSULTATION Observed: 02/09/2018 Status: F Source: MEARS 1:42 PM [facility] REPOSITORY [facility] Medical Records Department [address] [place] [address] Consultation 02/09/18 1334 MR#: [id number] Acct: [id number] Name: TAMIA PANDA Rep #: [id number] : 1955 63 From: Syed Montanez MD PCP: Bhupendra Oliveira MD Status: ADM IN Location: [place] [address] Problem List (1) COPD with moderate acute bronchitis Status: Acute Reason for Consult: mrsa Consulted by: Dr. Hogan History of Present Illness: The patient is a 63 year old F with COPD who was discharged 02/05 after admission with COPD and human metapneumovirus and then readmitted 2 days later due to worsening cough, SOB, not feeling well at home. Cough with irvin sputum. No fever or chills. Denies dysuria, no changes in urine odor/color/frequency. Readmitted, started on vanc/ceftriaxone due to mrsa in sputum and ecoli in urine. Feeling better, breathing easier. Full ROS performed and neg except as noted above. - Medical History Past Medical History (Chronic Problems): Chronic Problems Diabetes mellitus type 2 in obese (Chronic) Coronary arteriosclerosis (Chronic) cath 05/2015 mild-moderate disease medical therapy recommended Hypothyroidism (Chronic) Hyperlipemia (Chronic) GERD (gastroesophageal reflux disease) (Chronic) Hypertension (Chronic) COPD (chronic obstructive pulmonary disease) (Chronic) Chronic respiratory insufficiency (Chronic) On home oxygen at night S/P PTCA (percutaneous transluminal coronary angioplasty) (Chronic) PARESH (obstructive sleep apnea) (Chronic) Allergies/Adverse Reactions: Allergies ciprofloxacin [From Cipro] Allergy (Verified 02/07/18 19:42) Hives latex Allergy (Verified 02/07/18 19:42) matos me niacin [From Niaspan Extended-Release] Allergy (Verified 02/07/18 19:42) Hives ondansetron [From Zofran] Allergy (Verified 02/07/18 19:42) Unknown Xanthines Allergy (Verified 02/07/18 19:42) Unknown Penicillins Adverse Reaction (Mild, Verified 02/07/18 19:42) Itching/redness orphenadrine citrate [From Norgesic] Adverse Reaction (Verified 02/07/18 19:42) groggy medical tape Adverse Reaction (Uncoded 02/07/18 19:42) blisters Home Medications: Ambulatory Orders Medication Instructions Recorded - Social History SMOKING STATUS:: Former smoker Vital Signs Temp Pulse Resp BP Pulse Ox 97.6 F L 73 18 138/65 H 100 02/09/18 11:00 02/09/18 11:16 02/09/18 11:15 02/09/18 11:00 02/09/18 11:00 Oxygen Flow Rate (L/min) 2 Oxygen Delivery Method Nasal Cannula Weight: 97 kg Body Mass Index (BMI) 35.6 Microbiology Past 72 Hours 02/07/18 22:58 Influenza Types A,B Direct FA (JEZ) - Final Mucosa - Nose Laboratory Tests Past 24 Hrs Urine Color Yellow Urine Clarity Clear Urine pH 6.5 Ur Specific Dixon 1.015 Urine Protein 15 H - Other Studies Radiology: [] reviewed Other Studies: [] Route of nutrition/ use of supplements: [] Nutritional Intake: [] IV Site: [] Maradiaga Catheter: [] - Physical Exam General: Alert, Cooperative, No apparent distress HEENT: Atraumatic, PERRLA, EOMI Neck: Supple, No Nodes Lungs: Diminished Cardiovascular: Regular rate, Regular Rhythm, No murmurs Abdomen: Bowel Sounds Present, Soft, Non Tender, Non-Distended Extremities: No edema Skin: No rashes IV Site: Peripheral Musculoskeletal: No Tenderness to Palpation of Joints or Extremities Neurological: Cranial nerves II-XII grossly intact - Assessment/Plan Antibiotics: [] Assessment/Plan: [] Active and Suspected Problems Atrial fibrillation with RVR (Acute) COPD exacerbation - Improving. Recent (+) for human metapneumovirus. Sputum with some MRSA, but no focal pneumonia on chest CT. Ucx with ecoli, mild pyuria on UA, but no urinary symptoms. Currently on vanc/ceftriaxone. Not clear how much the mrsa or ecoli were contributing to her presentation. No fever, no leukocytosis. Will cover these bacteria with po bactrim DS which she reports tolerating in past with no issue. Stop date planned for 02/14/18. Thank you, will follow. 02/09/18 1342 <Electronically signed by Syed Montanez MD> Date Syed Montanez MD Cosigner Signature (if applicable): Date CC: Bhupendra Oliveira MD; Syed Montanez MD Signed BEDSIDE GLUCOSE Collected: 02/09/2018 Status: F Source: KINJAL 11:08 AM [facility] REPOSITORY TYPE CODE TESTS RESULT OUT OF REFERENCE UNITS RANGE LAB L501.080 70-110 mg/dL High BEDSIDE GLU 292 Result Comment: MANAGEMENT OF PATIENT CARE PER NURSING PROTOCOL Performed By: #### L501.080 #### [facility] Point of Care [address] [place] [address] BEDSIDE GLUCOSE Collected: 02/09/2018 Status: F Source: KINJAL 6:57 AM [facility] REPOSITORY TYPE CODE TESTS RESULT OUT OF REFERENCE UNITS RANGE LAB L501.080 70-110 mg/dL High BEDSIDE GLU 236 Result Comment: MANAGEMENT OF PATIENT CARE PER NURSING PROTOCOL Performed By: #### L501.080 #### [facility] Point of Care [address] [place] [address] BEDSIDE GLUCOSE Collected: 02/08/2018 Status: F Source: KINJAL 9:38 PM [facility] REPOSITORY TYPE CODE TESTS RESULT OUT OF REFERENCE UNITS RANGE LAB L501.080 70-110 mg/dL High BEDSIDE GLU 362 Result Comment: MANAGEMENT OF PATIENT CARE PER NURSING PROTOCOL Performed By: #### L501.080 #### [facility] Point of Care [address] [place] [address] URINALYSIS, COMPLETE Collected: 02/08/2018 Status: F Source: KINJAL 9:00 PM [facility] REPOSITORY Order Comment: Order Date: 02/08/18 How was Urine Obtained? CLEAN CATCH TYPE CODE TESTS RESULT OUT OF RANGE REFERENCE UNITS LAB L400.3000 Yellow COLOR Normal Yellow LAB L400.3050 Clear Normal CLARITY Clear LAB L400.3200 Normal mg/dl High GLUCOSE, UR 100 LAB L400.3300 Negative mg/dL Normal BILIRUBIN URINE Negative LAB L400.3400 Negative mg/dl High 15 KETONE UR LAB L400.3465 1.002-1.030 Normal SP.GR. DIPSTX 1.015 LAB L400.3550 5.0 - 8.0 pH UR Normal 6.5 LAB L400.3600 Negative mg/dl High PROT 15 DIPSTX LAB L400.3700 Normal mg/dl High 1 UROBILI LAB L400.3750 Negative Normal NITRITE UR Negative LAB L400.3780 Negative /ul Normal OCCULT BLOOD-UR Negative LAB L400.3800 Negative /ul LEUK Normal ESTERASE Negative LAB L400.4050 0-5 /hpf WBC Normal 0-5 SEEN LAB L400.4100 0-5 /hpf Normal RBC-UA 0-5 SEEN LAB L400.4150 5-10 /hpf SQUAM Normal EPI 0-5 SEEN LAB L400.4300 None Seen /hpf 0 Normal BACTERIA SEEN LAB L400.4350 <or=2+ /hpf Normal MUCUS, URINE RARE LAB L400.4400 0-5 /lpf Normal HYALINE CAST 5-10 SEEN LAB L400.4450 0-5 /lpf FINE Normal GRAN CAST 0-5 SEEN Performed By: #### L400.0001 #### [facility] [address] [place], [address] Observed: 02/08/2018 Status: F Source: KINJAL CULTURE, URINE 9:00 PM [facility] REPOSITORY Urine Culture Culture exhibits no growth. Performed By: #### M100.0650 #### [facility] [address] [place], [address] BEDSIDE GLUCOSE Collected: 02/08/2018 Status: F Source: KINJAL 4:43 PM [facility] REPOSITORY TYPE CODE TESTS RESULT OUT OF REFERENCE UNITS RANGE LAB L501.080 70-110 mg/dL High BEDSIDE GLU 191 Result Comment: MANAGEMENT OF PATIENT CARE PER NURSING PROTOCOL Performed By: #### L501.080 #### [facility] Point of Care [address] [place] [address] CHEST 1 VIEW Observed: 02/08/2018 Status: F Source: KINJAL (PORTABLE) 4:39 PM [facility] REPOSITORY [facility] Imaging Services [address] [place] [address] Chest 1 View (Portable) MR#: [id number] Acct: [id number] Name: TAMIA PANDA Jennifer Rep #: [id number] : 1955 F 63 From: John Chavez MD PCP: Bhupendra Oliveira MD Status: ADM IN Study: Chest 1 View (Portable) Date of Exam: 02/08/18 Exam# [id number] Ordering Dr: Joseph Wright MD STUDY: X-RAY CHEST REASON FOR EXAM: Female, 63 years old. PICC line placement TECHNIQUE: AP portable COMPARISON: February 07, 2018 FINDINGS: There is mild diffuse interstitial thickening but no focal infiltration.. There is no demonstrated pleural abnormality. Normal size heart. Normal mediastinum and tracie. Normal visualized pulmonary arteries. Normal visualized aortic arch and descending thoracic aorta. Dorsal spine demonstrates spondylosis.. Normal visualized ribs, clavicles, and shoulders. PICC line has been placed on the right with tip in distal superior vena cava There is no demonstrated abnormality of the visualized soft tissue structures of the upper abdomen. RAD/Chest 1 View (Portable) IMPRESSION: PICC line placement with tip in distal superior vena cava Electronically Signed: John Chavez MD at 18:15 EDT , Service support , CC: Bhupendra Oliveira MD; Joseph Wright MD Pipe Recovery Specialist: Signed BEDSIDE GLUCOSE Collected: 02/08/2018 Status: F Source: KINJAL 11:43 AM [facility] REPOSITORY TYPE CODE TESTS RESULT OUT OF REFERENCE UNITS RANGE LAB L501.080 70-110 mg/dL High BEDSIDE GLU 320 Result Comment: MANAGEMENT OF PATIENT CARE PER NURSING PROTOCOL Performed By: #### L501.080 #### [facility] Point of Care [address] [facility] [place] [address] CBC-COMPLETE BLOOD CNT Collected: 02/08/2018 Status: F Source: KINJAL NO DIFF 8:25 AM [facility] REPOSITORY TYPE CODE TESTS RESULT OUT OF RANGE REFERENCE UNITS LAB L100.1000 4.4-11.0 K/mm3 Normal WBC 6.4 LAB L100.1200 4.2-5.4 M/mm3 Normal RBC 4.45 LAB L100.1300 12.0-15.0 g/dl Normal HGB 13.1 LAB L100.1400 37-47 % Normal HCT 41.6 LAB L100.1500 81-99 fL Normal MCV 93.5 LAB L100.1600 27.0-32.0 pg Normal MCH 29.4 LAB L100.1700 32-36 g/gl Low MCHC 31.5 LAB L100.1810 11.6-14.6 % High RDW CV 15.0 LAB L100.1820 35.1-43.9 fl High RDW SD 51.5 LAB L100.1900 150-450 K/mm3 Normal PLT 198 LAB L100.2000 6.2-12.0 fl Normal MPV 10.3 Performed By: #### L100.0500 #### [facility] [address] [facility] [place], [address] PROTHROMBIN TIME W/INR Collected: 02/08/2018 Status: F Source: KINJAL 8:25 AM [facility] REPOSITORY Order Comment: Comments: CAN GET FROM MORNING LABS IF ALREADY DONE TYPE CODE TESTS RESULT OUT OF RANGE REFERENCE UNITS LAB L300.4150 11.7-14.9 SECONDS Normal PROTIME 14.5 LAB L300.4200 Normal INR 1.1 Performed By: #### L300.3900 #### [facility] [address] [place], [address] TROPONIN-I Collected: 02/08/2018 Status: F Source: KINJAL 8:25 AM [facility] REPOSITORY Order Comment: 'TROP' Serial specimen #1, #2 or #3: 3 TYPE CODE TESTS RESULT OUT OF RANGE REFERENCE UNITS LAB L501.4010 <0.045 ng/mL Normal < 0.015 TROPONIN-I Result Comment: TROPONIN-I EXPECTED VALUES <0.045 Negative 0.045 - 0.590 Consistent with Cardiac Damage > OR = 0.600 Critical Value Not every elevated troponin is indicative of DC. These values should be used with clinical judgement in examining the patient's clinical picture for diagnosis. To establish a diagnosis of DC versus myocardial injury, there must be a demonstrated rise and/or fall in the troponin values, in addition to ischemic symptoms, EKG changes, new regional wall motion abnormality, and/or angiographical evidence. PLEASE NOTE: REFERENCE RANGES EDITED 18 Performed By: #### L501.4010 #### [facility] [address] [facility] [place], [address] BASIC METABOLIC Collected: 02/08/2018 Status: F Source: KINJAL PROFILE (BMP) 8:25 AM [facility] REPOSITORY Order Comment: Comments: Fasting Lipid Profile TYPE CODE TESTS RESULT OUT OF RANGE REFERENCE UNITS LAB L501.0100 74-106 mg/dL High GLU 339 Result Comment: Glucose result greater than or equal to 200 mg/dL suggests DIABETES MELLITUS per A.D.A. criteria. Please note revised GLUCOSE reference range effective 2017. LAB L501.1000 7-18 mg/dL Normal BUN 16 LAB L501.1100 0.55-1.02 mg/dL Normal CREAT,SERUM 0.66 Result Comment: The validity of the calculated GFR AND GFRAA in patients over 70 years has not been determined. Clinical correlation is essential. LAB L501.1110 >60 mL/min Normal EST GFR 96 Result Comment: Non- GFR Calc LAB L501.1115 >60 mL/min Normal EST GFR - AA 116 Result Comment: GFR Calc LAB L501.1255 ml/min Normal Estimated CRCL 75.34 LAB L501.1300 10-20 RATIO High BUN/CRE 24.2 LAB L501.2200 8.5-10 mg/dL Normal .1 CA 8.7 LAB L501.5300 136-14 mmol/L Normal 5 NA 140 LAB L501.5600 3.5-5. mmol/L Low 1 K 3.4 LAB L501.5900 98-107 mmol/L Normal CL 99 LAB L501.6100 21.0-3 mmol/L Normal 2.0 CO2 31.0 LAB L501.6200 5-15 Normal GAP 10 Performed By: #### L500.2500, L500.4100, L501.9520 #### [facility] [address] [place], [address] LIPID PROFILE Collected: 02/08/2018 Status: F Source: MEARS 8:25 AM [facility] REPOSITORY Order Comment: Comments: Fasting Lipid Profile TYPE CODE TESTS RESULT OUT OF RANGE REFERENCE UNITS LAB L501.4900 200 mg/dL Normal CHOL 142 Result Comment: <200 mg/dL Desirable 200-240 mg/dL Borderline >240 mg/dL High Risk LAB L501.5000 mg/dL High TRIG 206 Result Comment: The drugs N-Acetylcysteine and Metamizole may falsely depress this assay. Serum Triglycerides Reference Interval Normal <150 mg/dL Borderline high 150 - 199 mg/dL High 200 - 499 mg/dL Very High > or = 500 mg/dL LAB L501.6400 mg/dL Normal HDL 59 Result Comment: The drugs N-Acetylcysteine and Metamizole may falsely depress this assay. Reference Range HDL <40 mg/dL Low HDL Cholesterol HDL >or= 60 mg/dL High HDL Cholesterol LAB L501.6500 0-130 mg/dL Normal LDL 42 LAB L501.6600 5-40 mg/dL High VLDL 41 Performed By: #### L500.2500, L500.4100, L501.9520 #### [facility] [address] [facility] [place], [address] THYROID STIM HORMONE Collected: 02/08/2018 Status: F Source: KINJAL (TSH) 8:25 AM [facility] REPOSITORY Order Comment: Comments: Fasting Lipid Profile TYPE CODE TESTS RESULT OUT OF RANGE REFERENCE UNITS LAB L501.9520 0.358-3.74 uIU/mL Low TSH 0.20 Performed By: #### L500.2500, L500.4100, L501.9520 #### [facility] [address] [facility] [place], [address] BEDSIDE GLUCOSE Collected: 02/08/2018 Status: F Source: KINJAL 6:46 AM [facility] REPOSITORY TYPE CODE TESTS RESULT OUT OF REFERENCE UNITS RANGE LAB L501.080 70-110 mg/dL High BEDSIDE GLU 346 Result Comment: MANAGEMENT OF PATIENT CARE PER NURSING PROTOCOL Performed By: #### L501.080 #### [facility] Point of Care [address] [place] [address] HISTORY AND PHYSICAL Observed: 02/08/2018 Status: F Source: KINJAL EXAM 5:46 AM [facility] REPOSITORY [facility] Medical Records Department [address] [place] [address] History and Physical 02/07/18 2330 MR#: [id number] Acct: [id number] Name: TAMIA PANDA Rep #: [id number] : 1955 63 From: Donn Baker MD PCP: Bhupendra Oliveira MD Status: ADM IN Location: [place] [id number] Problem List (1) Atrial fibrillation with RVR Status: Acute (2) COPD exacerbation Status: Acute (3) Coronary arteriosclerosis Status: Chronic Comment: cath 05/2015 mild-moderate disease medical therapy recommended (4) GERD (gastroesophageal reflux disease) Status: Chronic (5) Hyperlipemia Status: Chronic (6) Hypertension Status: Chronic (7) Hypothyroidism Status: Chronic Qualifiers: (8) PARESH (obstructive sleep apnea) Status: Chronic History of Present Illness Date of Admission: 02/07/18 Chief Complaint: COPD exacerbation The patient is a 63 year old female w/ h/o COPD, afib on eliquis, CAD s/p stent, insulin-dependent diabetes and prior DVT and PE readmitted for acute hypoxic and hypercapnic respiratory failure. She was discharged 1 day ago and when she was home, she became more SOB. SOB worsened over the next day. She had a dry cough with her SOB. Nothing appeared to make her SOB better or worse despite she taking her meds. She lives by herself. She went back to the ED for further workup. Past Medical History Past Medical History (Chronic Problems): Chronic Problems Diabetes mellitus type 2 in obese (Chronic) Coronary arteriosclerosis (Chronic) cath 05/2015 mild-moderate disease medical therapy recommended Hypothyroidism (Chronic) Hyperlipemia (Chronic) GERD (gastroesophageal reflux disease) (Chronic) Hypertension (Chronic) COPD (chronic obstructive pulmonary disease) (Chronic) Chronic respiratory insufficiency (Chronic) On home oxygen at night S/P PTCA (percutaneous transluminal coronary angioplasty) (Chronic) PARESH (obstructive sleep apnea) (Chronic) Allergies ciprofloxacin [From Cipro] Allergy (Verified 02/07/18 19:42) Hives latex Allergy (Verified 02/07/18 19:42) matos me niacin [From Niaspan Extended-Release] Allergy (Verified 02/07/18 19:42) Hives ondansetron [From Zofran] Allergy (Verified 02/07/18 19:42) Unknown Xanthines Allergy (Verified 02/07/18 19:42) Unknown Penicillins Adverse Reaction (Mild, Verified 02/07/18 19:42) Itching/redness orphenadrine citrate [From Norgesic] Adverse Reaction (Verified 02/07/18 19:42) groggy medical tape Adverse Reaction (Uncoded 02/07/18 19:42) blisters Home Medications: Ambulatory Orders Medication Instructions Recorded Surgical History: angioplasty, cholecystectomy, herniorrhaphy, hysterectomy, - - tubal ligation. Psychiatric History: No pertinent psych hx LOG CUT OFF SAWYER History: No pertinent LOG CUT OFF SAWYER history Smoking Status: Former smoker - *Family History Maternal History Items: No pertinent history Paternal History Items: Heart Disease, Stroke - age 62 Offspring History Items: No pertinent history - 5 children, 32 grand children and great grandchildren Review of Systems Constitutional: Denies: Chills, Fever, Weight Change HEENT: Denies: Head Aches, Sinus Congestion, Sinus Drainage Cardiovascular: Denies: Chest Pain, Palpitations Respiratory: Reports: Cough, Shortness of breath at rest, Sputum production, Wheezing Gastrointestinal: Denies: Abdominal Pain, Nausea, Vomiting Genitourinary: Denies: Dysuria Musculoskeletal: Denies: Joint Pain, Joint Tenderness Skin: Denies: Rash, Wounds Neurological: Denies: Numbness, Tingling, Focal weakness Psychiatric: Denies: Anxiety, Depression, Homicidal Ideations, Suicidal Ideations Hematologic/ Lymphatic: Denies: Easy Bruising, Easy Bleeding VTE Information - Inpt Only VTE Present on Admission: No VTE Mechan Device Prophylaxis: SCD's VTE Pharm Prophylaxis ordered?: Yes Patient Problems: Active and Suspected Problems Atrial fibrillation with RVR (Acute) - Physical Exam General: Cooperative, Confused, Disoriented HEENT: Atraumatic, PERRLA, EOMI, Normocephalic Neck: Supple, No JVD, Negative Carotid Bruits Lungs: Diminished, Rales, Wheezes Cardiovascular: Regular rate, No murmurs Abdomen: Bowel Sounds Present, Soft, Non Tender Extremities: No edema, Capillary Refill Less than 3 Seconds Skin: No rashes, No breakdown Musculoskeletal: No Tenderness to Palpation of Joints or Extremities Neurological: Cranial nerves II-XII grossly intact Psych/Mental Status: Normal Affect, Appropriate Vital Signs Temp Pulse Resp BP Pulse Ox 97.4 F L 103 H 24 H 151/91 H 94 02/07/18 22:32 02/07/18 23:20 02/07/18 23:20 02/07/18 23:20 02/07/18 23:20 Oxygen Delivery Method Bi-pap Weight: 97 kg Body Mass Index (BMI) 35.6 Microbiology Past 72 Hours 02/07/18 22:58 Influenza Types A,B Direct FA (JEZ) - Final Mucosa - Nose Laboratory Tests Past 24 Hrs Specimen Type ART Sample Site L Radial pH 7.49 H Bicarbonate Actual 36.6 H POC Total CO2 38 Base Excess 13 H O2 Saturation 98 O2 % 35 POC Glucose POC Glucose 254 H Assessment/Plan Active and Suspected Problems Atrial fibrillation with RVR (Acute) 63 year old female w/ h/o COPD, afib on eliquis, CAD s/p stent, insulin-dependent diabetes and prior DVT and PE readmitted for acute hypoxic and hypercapnic respiratory failure. 1) Acute hypoxic and hypercapnic respiratory failure: Most likely secondary to COPD exacerbation. Will restart bronchodilator, steroid and antibiotic. Cultures pending. 2) Afib with RVR: H/o afib noted. C/w eliquis. Will start cardizem gtt. Labetalol IV PRN. Serial trops. Will also get ECHO. 3) Elevated d-dimer: Given worsening SOB, concerning for progressive worsening PE. Will get CTA. Monitor. 4) DMII: Resume home meds. 02/08/18 0546 <Electronically signed by Donn Baker MD> Date Donn Baker MD Cosigner Signature: Date (if applicable) CC: Bhupendra Oliveira MD; Donn Baker MD Signed BEDSIDE GLUCOSE Collected: 02/08/2018 Status: F Source: MEARS 3:18 AM [facility] REPOSITORY TYPE CODE TESTS RESULT OUT OF REFERENCE UNITS RANGE LAB L501.080 70-110 mg/dL High BEDSIDE GLU 335 Result Comment: MANAGEMENT OF PATIENT CARE PER NURSING PROTOCOL Performed By: #### L501.080 #### [facility] Point of Care [address] [place] [address] TROPONIN-I Collected: 02/08/2018 Status: F Source: MEARS 1:50 AM [facility] REPOSITORY Order Comment: 'TROP' Serial specimen #1, #2 or #3: 2 TYPE CODE TESTS RESULT OUT OF RANGE REFERENCE UNITS LAB L501.4010 <0.045 ng/mL Normal < 0.015 TROPONIN-I Result Comment: TROPONIN-I EXPECTED VALUES <0.045 Negative 0.045 - 0.590 Consistent with Cardiac Damage > OR = 0.600 Critical Value Not every elevated troponin is indicative of DC. These values should be used with clinical judgement in examining the patient's clinical picture for diagnosis. To establish a diagnosis of DC versus myocardial injury, there must be a demonstrated rise and/or fall in the troponin values, in addition to ischemic symptoms, EKG changes, new regional wall motion abnormality, and/or angiographical evidence. PLEASE NOTE: REFERENCE RANGES EDITED 18 Performed By: #### L501.4010 #### [facility] [address] [place], [address] CR-CHEST 1 VIEW Observed: 02/08/2018 Status: F Source: ROJAS (PORTABLE) IMPORT 12:00 AM [facility] REPOSITORY Images were obtained outside of [facility] [id number] CT-CTA CHEST W/WO Observed: 02/08/2018 Status: F Source: ROJAS CONTRAST IMPORT 12:00 AM [facility] REPOSITORY Images were obtained outside of [facility] [id number] EMERGENCY DEPARTMENT Observed: 02/07/2018 Status: F Source: KINJAL SUMMARY 11:37 PM [facility] REPOSITORY [facility] Medical Records Department [address] [place] [address] Emergency Department Summary 02/07/182052 MR#: [id number] Acct: [id number] Name: TAMIA PANDA Rep #: [id number] : 1955 63 From: John Hodge MD PCP: Bhupendra Oliveira MD Status: ADM IN - ER Visit Summary Date of Service: 02/07/18 Chief Complaint: Shortness of breath and fast heart rate History of Present Illness: The patient is a 63 F history of COPD and A. fib. Also history of CAD with one stent, insulin-dependent diabetes and prior DVT and PE. She is currently on the blood thinner Eliquis. Patient was just in the hospital and discharged. She denies fever. She denies any significant chest pain. She denies hemoptysis. She denies leg swelling. He is on home O2 at 3 L. Physical Examination: Older female vital signs blood pressure 142/93 afebrile and a heart rate appears to be A. fib RVR to monitor between 140-170. Mild respiratory distress. H EENT exam unremarkable. Neck nontender no JVD. Lungs extra Tory wheezing. Prolonged expiration phase. Few scattered rhonchi that clear with coughing. Heart A. fib RVR 140s+. Abdomen soft and nontender. Normal bowel sounds. No peritoneal signs. Moving all 4 extremities. Calves nontender, no edema or cords. Neurologically she is awake and alert. Test Results: Chest x-ray shows chronic changes no acute process. No pneumonia. No failure. EKG shows A. fib RVR rate 137 with PVCs. CBC shows white count 8. H AND H of 13.2. Electrolytes show potassium 2.8 otherwise unremarkable with a normal gap. Troponin normal. ABG shows a pH of 7.50 with a CO2 of 47 and O2 of 82 with a O2 sat of 97%. Emergency Department Course and Treatment: Patient appears to be exacerbation of COPD and A. fib RVR. Treated with IV Solu-Medrol and aerosol treatments. Along with Cardizem IV bolus and drip. Patient continued to get worse and was placed on BiPAP. Reevaluation she was improving on the BiPAP prior to being admitted to the PCU. Treatment Plan: I have already spoken to Dr. Baker the night hospitalist and he is down to evaluate the patient for admission. Disposition: Discharge Impression: Acute exacerbation COPD A. fib RVR Noninvasive ventilatory support (BiPAP) secondary to respiratory failure Hypokalemia History of CAD with one cardiac stent History of insulin-dependent diabetes This note was generated with Cureeo dictation software. It may contain incorrect words, spelling, and punctuation that were not noted in review of the chart prior to signing ED Disposition - Plan for ED Patient: Disposition: Acute Care [facility] Chief Complaint: Shortness of Breath Referrals: Bhupendra Oliveira MD [Primary Care Provider] - What to do if you have Problems For any increased pain, shortness of breath, bleeding, nausea or vomiting, chest pain, or any unexpected problems, contact your Primary Care Provider. Call [facility] ([phone]) or report to the closest Emergency Room. Call 911 if necessary. 02/07/18 2326 <Electronically signed by John Hodge MD> Date John Hodge MD Cosigner Signature (If Indicated): Date CC: Bhupendra Oliveira MD CTA CHEST W/WO Observed: 02/07/2018 Status: F Source: KINJAL CONTRAST 11:30 PM [facility] REPOSITORY [facility] Imaging Services [address] [place] [address] CTA Chest W/WO Contrast MR#: [id number] Acct: [id number] Name: TAMIA PANDA Rep #: [id number] : 1955 F 63 From: Lizette Sutherland MD PCP: Bhupendra Oliveira MD Status: ADM IN Study: CTA Chest W/WO Contrast Date of Exam: 02/08/18 Exam# [id number] Ordering Dr: Donn Baker MD STUDY: CTA CHEST REASON FOR EXAM: Female, 63 years old. Shortness of breath, elevated d-dimer RADIATION DOSAGE (If Supplied By Facility): CTDIvol = ( 16.73 ) mGy, DLP = ( 690.72 ) mGycm TECHNIQUE: The examination was performed with the intravenous administration of 100 ml of Isovue 370 contrast material. Post-processing of the angiographic images was performed, with multiplanar reformation and 3D reconstruction. Individualized dose optimization techniques were used for this CT. COMPARISON: Chest radiograph from the same day; chest CT without contrast dated March 29, 2016 FINDINGS: Normal enhancement of the main pulmonary artery and right and left pulmonary arteries without filling defects. Normal enhancement of the bilateral peripheral pulmonary arteries without evidence of filling defects. There are minimal vascular calcifications in the thoracic aorta. There is no demonstrated aortic dissection. The heart is normal in size. There are calcifications of the coronary arteries. There are prominent lymph nodes throughout the mediastinum. Lymph nodes in the right paratracheal space have decreased in size from about 3.2 cm to 2.4 cm. There are small lymph nodes in both tracie. There are calcified lymph nodes in the left hilum. The airways are unremarkable. There is minimal biapical scarring. There are reticulonodular changes in both lungs, right greater than left. There is a 1.1 cm opacity in the periphery of the right lower lobe on image 67. There is no demonstrated pleural abnormality. The soft tissues are unremarkable. There are mild degenerative changes in the visualized spine. There are numerous calcified granulomas in the spleen. CT/CTA Chest W/WO Contrast IMPRESSION: There is no evidence of pulmonary embolism, aortic aneurysm or aortic dissection. There are mild chronic changes in both lungs, right greater than left. There is no focal consolidation. There is no pleural effusion. Prominent lymph nodes in the mediastinum are likely reactive. The lymph nodes have decreased in size compared to the prior CT. There is a 1.1 cm opacity in the periphery of the right lower lobe. A follow-up CT of the chest is recommended in three months. Electronically Signed: Lizette Sutherland MD at 23:31 EDT Tel Direct: [phone], Service support , CC: Bhupendra Oliveira MD; Donn Baker MD Pipe Recovery Specialist: Signed Observed: 02/07/2018 Status: F Source: MEARS INFLUENZA A+B (RAPID 10:58 PM [facility]) REPOSITORY FLU A/B Rapid Negative test results should be confirmed by culture. Order Rapid Viral Culture for Influenzae A+B ([id number]) if clinically indicated. Influenza Ag, Direct Presumptive NEGATIVE for Influenza A/B Antigen (See Note) Performed By: #### L300.8000, M101.0101 #### [facility] [address] [place], [place], [address] BEDSIDE GLUCOSE Collected: 02/07/2018 Status: F Source: MEARS 10:53 PM [facility] REPOSITORY TYPE CODE TESTS RESULT OUT OF REFERENCE UNITS RANGE LAB L501.080 70-110 mg/dL High BEDSIDE GLU 254 Result Comment: MANAGEMENT OF PATIENT CARE PER NURSING PROTOCOL Performed By: #### L501.080 #### [facility] Point of Care [address] [place] [address] BLOOD GASES BY CPS Collected: 02/07/2018 Status: F Source: KINJAL 10:52 PM [facility] REPOSITORY TYPE CODE TESTS RESULT OUT OF RANGE REFERENCE UNITS LAB L9000.9990 Normal BLD GAS TYPE ART LAB L9001.1000 Normal SITE L Radial LAB L9001.1010 Normal SALO TEST POS LAB L9001.1050 O2 Normal Delivery Dev Bi / C PAP LAB L9001.1070 RR Normal 12 LAB L9001.1074 Normal FI02 35 LAB L9001.1088 Normal IPAP 12 LAB L9001.1090 Normal EPAP 6 LAB L9001.1104 Normal Results To HOSP LAB L9001.1105 Normal Time Given 2244 LAB L9001.1110 7.35-7.45 High pH - I-STAT 7.49 LAB L9001.1210 35-45 mmHg High pCO2 - ISTAT 48.5 LAB L9001.1310 75-100 mmHG Normal PO2 I-STAT 99 LAB L9001.2300 22-26 mmol/L High HCO3 ISTAT 36.6 LAB L9001.2400 -2 to +2 mmol/L High BE ISTAT 13 LAB L9001.2415 mmol/L Normal TOTAL CO2 38 ISTAT LAB L9001.2425 95-99 % Normal SO2 ISTAT 98 Performed By: #### L9000.0800 #### [facility] Point of Care [facility] [place] [address] BLOOD GASES BY CPS Collected: 02/07/2018 Status: F Source: KINJAL 8:41 PM [facility] REPOSITORY TYPE CODE TESTS RESULT OUT OF RANGE REFERENCE UNITS LAB L9000.9990 Normal BLD GAS TYPE ART LAB L9001.1000 Normal SITE L Radial LAB L9001.1010 Normal SALO TEST POS LAB L9001.1050 O2 Normal Delivery Dev Nasal Can LAB L9001.1055 /min Normal LPM 2.0 LAB L9001.1104 Normal Results To ED LAB L9001.1105 Normal Time Given 2034 LAB L9001.1110 7.35-7.45 High pH - I-STAT 7.50 LAB L9001.1210 35-45 mmHg High pCO2 - ISTAT 47.4 LAB L9001.1310 75-100 mmHG Normal PO2 I-STAT 82 LAB L9001.2300 22-26 mmol/L High HCO3 ISTAT 37.1 LAB L9001.2400 -2 to +2 mmol/L High BE ISTAT 14 LAB L9001.2415 mmol/L Normal TOTAL CO2 39 ISTAT LAB L9001.2425 95-99 % Normal SO2 ISTAT 97 Performed By: #### L9000.0800 #### [facility] Point of Care [address] [place] [address] D-DIMER QUANTITATIVE Collected: 02/07/2018 Status: F Source: MEARS (DVT/PE) 8:18 PM [facility] REPOSITORY TYPE CODE TESTS RESULT OUT OF RANGE REFERENCE UNITS LAB L300.8000 0.27-0.49 FEU/ug/m High alert D-DIMER 0.63 QUANT Result Comment: D-Dimer ELEVATED (>0.49): Additional studies and clinical assessments are indicated to conclude diagnosis of: Deep Vein Thrombosis (DVT) or Pulmonary Embolism (PE) CRITICAL VALUE VERIFIED. CALLED TO SARA WILDER 02/07/18 2323 Nikki Goldstein. RESULTS READ BACK BY SAME. Performed By: #### L300.8000, M101.0101 #### [facility] [address] [place], [place], [address] CBC W/DIFF, AUTOMATED Collected: 02/07/2018 Status: F Source: MEARS 8:10 PM [facility] REPOSITORY TYPE CODE TESTS RESULT OUT OF RANGE REFERENCE UNITS LAB L100.1000 4.4-11.0 K/mm3 Normal WBC 8.0 LAB L100.1200 4.2-5.4 M/mm3 Normal RBC 4.59 LAB L100.1300 12.0-15.0 g/dl Normal HGB 13.3 LAB L100.1400 37-47 % Normal HCT 42.5 LAB L100.1500 81-99 fL Normal MCV 92.6 LAB L100.1600 27.0-32.0 pg Normal MCH 29.0 LAB L100.1700 32-36 g/gl Low MCHC 31.3 LAB L100.1810 11.6-14.6 % High RDW CV 15.1 LAB L100.1820 35.1-43.9 fl High RDW SD 51.4 LAB L100.1900 150-450 K/mm3 Normal PLT 202 LAB L100.2000 6.2-12.0 fl Normal MPV 9.9 LAB L100.2100 47-70 % High NEUT% 76.5 LAB L100.2200 19-41 % Low LY% 10.1 LAB L100.2300 0-10 % High MONO% 12.6 LAB L100.2400 0-5 % Normal EO% 0.5 LAB L100.2500 0-1 % Normal BASO% 0.1 LAB L100.2550 0.0-0.9 % Normal IM GRAN % 0.200 Result Comment: IG% - Immature Granulocytes (promyelocytes, myelocytes and metamyelocytes) > 1% indicates that a LEFT SHIFT is Present. LAB L100.2620 2.0-7.7 X10 3/uL Normal Absolute Neut 6.1 LAB L100.2720 0.83-4.51 X10 3/ul Low Absolute Lymph 0.81 Performed By: #### L100.0100 #### [facility] [address] [place], [place], [address] BASIC METABOLIC Collected: 02/07/2018 Status: F Source: MEARS PROFILE (BMP) 8:10 PM [facility] REPOSITORY TYPE CODE TESTS RESULT OUT OF RANGE REFERENCE UNITS LAB L501.0100 74-106 mg/dL High GLU 156 Result Comment: Fasting Glucose result greater than or equal to 126 mg/dL suggests DIABETES MELLITUS per A.D.A. criteria. Please note revised GLUCOSE reference range effective 2017. LAB L501.1000 7-18 mg/dL Normal BUN 15 LAB L501.1100 0.55-1.02 mg/dL Normal CREAT,SERUM 0.58 Result Comment: The validity of the calculated GFR AND GFRAA in patients over 70 years has not been determined. Clinical correlation is essential. LAB L501.1110 >60 mL/min Normal EST GFR 111 Result Comment: Non- GFR Calc LAB L501.1115 >60 mL/min Normal EST GFR - AA 134 Result Comment: GFR Calc LAB L501.1255 ml/min Normal Estimated CRCL 89.34 LAB L501.1300 10-20 RATIO High BUN/CRE 25.7 LAB L501.2200 8.5-10 mg/dL Normal .1 CA 9.0 LAB L501.5300 136-14 mmol/L Normal 5 NA 142 LAB L501.5600 3.5-5. mmol/L Low 1 K 2.8 LAB L501.5900 98-107 mmol/L Normal CL 98 LAB L501.6100 21.0-3 mmol/L High 2.0 CO2 37.0 LAB L501.6200 5-15 Normal GAP 7 Performed By: #### L500.2500, L501.4010 #### [facility] [address] [place], [address] TROPONIN-I Collected: 02/07/2018 Status: F Source: KINJAL 8:10 PM [facility] REPOSITORY TYPE CODE TESTS RESULT OUT OF RANGE REFERENCE UNITS LAB L501.4010 <0.045 ng/mL Normal 0.020 TROPONIN-I Result Comment: TROPONIN-I EXPECTED VALUES <0.045 Negative 0.045 - 0.590 Consistent with Cardiac Damage > OR = 0.600 Critical Value Not every elevated troponin is indicative of DC. These values should be used with clinical judgement in examining the patient's clinical picture for diagnosis. To establish a diagnosis of DC versus myocardial injury, there must be a demonstrated rise and/or fall in the troponin values, in addition to ischemic symptoms, EKG changes, new regional wall motion abnormality, and/or angiographical evidence. PLEASE NOTE: REFERENCE RANGES EDITED 18 Performed By: #### L500.2500, L501.4010 #### [facility] [address] [place], [address] BNP,B-TYPE NATRIURETIC Collected: 02/07/2018 Status: F Source: KINJAL PEPTIDE 8:10 PM [facility] REPOSITORY TYPE CODE TESTS RESULT OUT OF RANGE REFERENCE UNITS LAB L503.6620 0-100 pg/mL High B-TYPE 229.5 STONEY PEP Performed By: #### L503.6620 #### [facility] [address] [facility]. [place], [place], [address] CHEST 1 VIEW Observed: 02/07/2018 Status: F Source: KINJAL (PORTABLE) 8:04 PM [facility] REPOSITORY [facility] Imaging Services [address] [place] [address] Chest 1 View (Portable) MR#: [id number] Acct: [id number] Name: TAMIA PANDA Rep #: [id number] : 1955 F 63 From: Lizette Sutherland MD PCP: Bhupendra Oliveira MD Status: REG ER Study: Chest 1 View (Portable) Date of Exam: 02/07/18 Exam# [id number] Ordering Dr: John Hodge MD STUDY: X-RAY CHEST REASON FOR EXAM: Female, 63 years old. Shortness of breath TECHNIQUE: A single frontal view of the chest was obtained. COMPARISON: February 04, 2018 FINDINGS: The lungs are underaerated. There are increased interstitial markings throughout the lungs. There are no focal airspace opacities. There is no demonstrated pleural abnormality. The cardiac silhouette is normal in size allowing for low volume inspiration. The mediastinum and hilar regions are unremarkable. Normal visualized pulmonary arteries. There is atherosclerotic calcification of the thoracic aorta. There are diffuse degenerative changes of the visualized spine. There are degenerative changes in both shoulders. There is no demonstrated abnormality of the visualized upper abdomen. RAD/Chest 1 View (Portable) IMPRESSION: No acute cardiopulmonary abnormalities or changes. There is stable mild diffuse fibrosis. Electronically Signed: Lizette Sutherland MD at 20:54 EDT Tel Direct: [phone], Service support , CC: Bhupendra Oliveira MD; John Hodge MD Pipe Recovery Specialist: Signed CR-CHEST 1 VIEW Observed: 02/07/2018 Status: F Source: RUSSELL (PORTABLE) IMPORT 12:00 AM [facility] REPOSITORY Images were obtained outside of [facility] [id number] 12 LEAD ELECTROCARDIOGRAM Observed: 02/06/2018 Status: F Source: MEARS 2:04 PM [facility] REPOSITORY [facility] Cardiovascular Services [address] [place] [address] 12 Lead EKG 02/03/18 1603 MR#: [id number] Acct: [id number] Name: TAMIA PANDA Rep #: [id number] : 1955 63 From: Bart Blas MD Attending Dr: Shirley Fabian MD Status: ADM IN Ordering Dr: Robert Baird MD Date: 02/03/18 Location: U Sex: F C Admitted: 02/03/18 Test Reason : SOB Blood Pressure : / mmHG Vent. Rate : 107 BPM Atrial Rate : 141 BPM P-R Int : 000 ms QRS Dur : 088 ms QT Int : 370 ms P-R-T Axes : 000 -17 139 degrees QTc Int : [address] AND T wave abnormality, consider lateral ischemia Abnormal ECG Confirmed by WAN ABRAHAM, BART ([id number]), senior technical editor SHYANNE TERRAZAS ([id number]) on 02/06/2018 2:04:06 PM Referred By: VIVIEN Confirmed By:BART BLAS MD 02/06/18 1404 Date Bart Blas MD CC: Shirley Fabian MD; Bhupendra Oliveira MD; Robert Baird MD Signed BEDSIDE GLUCOSE Collected: 02/06/2018 Status: F Source: KINJAL 12:15 PM [facility] REPOSITORY TYPE CODE TESTS RESULT OUT OF REFERENCE UNITS RANGE LAB L501.080 70-110 mg/dL High BEDSIDE GLU 234 Result Comment: MANAGEMENT OF PATIENT CARE PER NURSING PROTOCOL Performed By: #### L501.080 #### [facility] Point of Care [address] [place] [address] BEDSIDE GLUCOSE Collected: 02/06/2018 Status: F Source: KINJAL 6:41 AM [facility] REPOSITORY TYPE CODE TESTS RESULT OUT OF REFERENCE UNITS RANGE LAB L501.080 70-110 mg/dL High BEDSIDE GLU 215 Result Comment: MANAGEMENT OF PATIENT CARE PER NURSING PROTOCOL Performed By: #### L501.080 #### [facility] Point of Care [address] [place] [address] BEDSIDE GLUCOSE Collected: 02/05/2018 Status: F Source: MEARS 10:52 PM [facility] REPOSITORY TYPE CODE TESTS RESULT OUT OF REFERENCE UNITS RANGE LAB L501.080 70-110 mg/dL High BEDSIDE GLU 193 Result Comment: MANAGEMENT OF PATIENT CARE PER NURSING PROTOCOL Performed By: #### L501.080 #### [facility] Point of Care [address] [place], [place] [address] BEDSIDE GLUCOSE Collected: 02/05/2018 Status: F Source: MEARS 5:06 PM [facility] REPOSITORY TYPE CODE TESTS RESULT OUT OF REFERENCE UNITS RANGE LAB L501.080 70-110 mg/dL High BEDSIDE GLU 171 Result Comment: MANAGEMENT OF PATIENT CARE PER NURSING PROTOCOL Performed By: #### L501.080 #### [facility] Point of Care [address] [place], [place] [address] PROGRESS Observed: 02/05/2018 Status: COMPLETED Source: RUSSELL 4:26 PM [facility] REPOSITORY HNO ID: [id number] Author: Nanda Rodriguez) Brian Service: (none) Author Type: Physician Type: Progress Notes Filed: 02/05/2018 4:26 PM Note Text: Reviewed and agree. TCM? PROGRESS Observed: 02/05/2018 Status: COMPLETED Source: RUSSELL 3:48 PM [facility] REPOSITORY HNO ID: [id number] Author: Saad Allen) Larry Service: (none) Author Type: Registered Nurse Type: Progress Notes Filed: 02/05/2018 3:49 PM Note Text: TC from Shayla at [facility], states pt is being discharged today with orders for intermediate, PT and OT. Informed PCP will sign home health orders. Saad Silvestre RN February 05, 2018 3:48 PM BEDSIDE GLUCOSE Collected: 02/05/2018 Status: F Source: MEARS 11:40 AM [facility] REPOSITORY TYPE CODE TESTS RESULT OUT OF REFERENCE UNITS RANGE LAB L501.080 70-110 mg/dL High BEDSIDE GLU 294 Result Comment: MANAGEMENT OF PATIENT CARE PER NURSING PROTOCOL Performed By: #### L501.080 #### [facility] Point of Care [address] [place] [address] DISCHARGE INSTRUCTION Observed: 02/05/2018 Status: F Source: MEARS 11:21 AM [facility] REPOSITORY [facility] Medical Records Department [address] [place] [address] Instructions for Home/Discharge Instructions 02/05/18 1108 MR#: [id number] Acct: [id number] Name: TAMIA PANDA Rep #: [id number] : 1955 63 From: Shirley Fabian MD PCP: Bhupendra Oliveira MD Status: ADM IN - Discharge Diagnoses Current Active Problems: Current Active and Chronic Problems Acute on chronic respiratory failure with hypoxia and hypercapnia (Acute) COPD exacerbation (Acute) Possible pneumonia (Acute) Reason(s) for Visit for Discharge Instructions: Shortness of breath You will use the following diet at home:: Calorie/Carbohydrate Controlled (specify 1200, 1400, etc), Cardiac Your food should be the consistency of: Regular Your liquids should be the consistency of: Regular/Thin Discharge Activity: Return to Normal Activity Additional Instructions: Continue to take your medications. You will need to use your breathing machine with medications every 4 hours as needed for shortness of breath. You will be followed up with home health for therapy and medication assistance. Keep a log of your blood sugars and show it to your primary care doctor. Follow- up with your primary care doctor for repeat blood work within 2 weeks and results of your blood and sputum cultures. Allergies/Adverse Reactions: Allergies ciprofloxacin [From Cipro] Allergy (Verified 02/03/18 15:46) Hives latex Allergy (Verified 02/03/18 15:46) matos me niacin [From Niaspan Extended-Release] Allergy (Verified 02/03/18 15:46) Hives ondansetron [From Zofran] Allergy (Verified 02/03/18 15:46) Unknown Xanthines Allergy (Verified 02/03/18 15:46) Unknown Penicillins Adverse Reaction (Mild, Verified 02/04/18 12:46) Itching/redness orphenadrine citrate [From Norgesic] Adverse Reaction (Verified 02/03/18 15:46) groggy medical tape Adverse Reaction (Uncoded 02/03/18 15:46) blisters Medications to take at Discharge Albuterol Inhaler [Ventolin Hfa] 2 puff INHALATION Q4H PRN PRN 02/03/18 Apixaban [Eliquis] 2.5 mg PO BID 02/03/18 Ascorbic Acid [Vitamin C] 500 mg PO DAILY@0800 02/03/18 Aspirin [Aspirin, Baby] 81 mg PO DAILY@0800 02/03/18 Atorvastatin Calcium [Lipitor] 40 mg PO QHS 02/03/18 Capsaicin 1 dose TP 4X/DAY 02/03/18 Diltiazem HCl [Cartia Xt] 180 mg PO DAILY 02/03/18 Docusate Sodium [Stool Softener] 100 mg PO DAILY PRN PRN 02/03/18 Duloxetine Hcl [Cymbalta] 60 mg PO DAILY 02/03/18 Estradiol 1 dose VG MOWEFR 02/03/18 Ferrous Gluconate 325 mg PO DAILY@0800 02/03/18 Fluticasone 0.05% [Flonase Nasal Cambria] 2 spray NASAL DAILY 02/03/18 Furosemide [Lasix] 40 mg PO BIDLX 02/03/18 Insulin Glargine,Hum.rec.anlog [Lantus] 56 unit SQ BID 02/03/18 Insulin Lispro [Humalog KwikPen] 22 unit SQ LUNCH 02/03/18 Insulin Lispro [Humalog KwikPen] 24 unit SQ DINNER 02/03/18 Insulin Lispro [Humalog] 14 unit SQ BREAKFAST 02/03/18 Isosorbide Mononitrate [Imdur] 90 mg PO DAILY 02/03/18 Levothyroxine [Synthroid] 100 mcg PO DAILY 02/03/18 Metformin HCl [Metformin HCl ER] 1,000 mg PO BID 02/03/18 Oxycodone HCl [Roxicodone] 5 - 10 mg PO Q4H PRN 02/03/18 Pantoprazole Sodium [Protonix] 40 mg PO BID 02/03/18 Pregabalin [Lyrica] 100 mg PO TID 02/03/18 Sennosides [Claudia-Kyle] 8.6 mg PO BID 02/03/18 Sucralfate [Carafate] 1 gm PO 4X/DAY 02/03/18 proMETHazine tablet [Phenergan tablet] 25 mg PO Q6H PRN PRN 02/03/18 Glucerna Shake 120 ml PO 4X/DAY #100 liquid 02/05/18 Guaifenesin [Mucinex] 1,200 mg PO BID #20 tab 02/05/18 Ipratropium/Albuterol Sulfate [Duoneb] 3 ml INHALATION Q4H.RT #100 ampul.neb 02/05/18 Metoprolol Tartrate [Lopressor (beta sudhakar)] 100 mg PO BID #60 tab 02/05/18 Prednisone 10 mg PO UD #30 tab 02/05/18 The following prescriptions were given: Ipratropium/Albuterol Sulfate [Duoneb] 3 ml INHALATION Q4H.RT #100 ampul.neb Prednisone 10 mg PO UD #30 tab Guaifenesin [Mucinex] 1,200 mg PO BID #20 tab Metoprolol Tartrate [Lopressor (beta sudhakar)] 100 mg PO BID #60 tab Glucerna Shake 120 ml PO 4X/DAY #100 liquid Primary Care Physician: Bhupendra Oliveira MD [Primary Care Provider] - Please follow up with your Primary Care Physician in: within 2 weeks Please Follow Up With: Donal Albright MD When: within 2 weeks Proposed Discharge Date: 02/05/18 02/05/18 1121 <Electronically signed by Shirley Fabian MD> Date Shirley Fabian MD CC: Adriano Livingston MD; Bhupendra Oliveira MD PROGRESS Observed: 02/05/2018 Status: COMPLETED Source: RUSSELL 10:31 AM [facility] [place] REPOSITORY HNO ID: [id number] Author: Nanda Rodriguez) Brian Service: (none) Author Type: Physician Type: Progress Notes Filed: 02/05/2018 10:32 AM Note Text: Reviewed and agree with earlier testing to prevent recurrent admission for hypoxia/hypercapnia 2/2 uncontrolled PARESH. PROGRESS Observed: 02/05/2018 Status: COMPLETED Source: RUSSELL 10:21 AM [facility] [place] REPOSITORY HNO ID: [id number] Author: Saad (Rn) Larry Service: (none) Author Type: Registered Nurse Type: Progress Notes Filed: 02/05/2018 10:25 AM Note Text: PRIMARY CARE COORDINATION FOLLOW-UP NOTE Provider Action/ROSEMARIEI Discussed scheduling sleep study sooner with [facility] ARODLO ROCHA, she will discuss with hospitalist Patient identified by name and date of . YES Spoke to AROLDO Whitehead CM at [facility] Summary: Discussed pt is in hospital with Respiratory Failure and MD's have discussed at ER and hospital D/C that patient's resp and altered mental status may be due to pt not wearing CPAP. We have sleep study scheduled for pt in order to get CPAP reordered for patient but that isn't until 02/23. Asking if Charley can possibly get test moved sooner so we can get patient back on CPAP at home. States she will discuss with hospitalist. Cleaning Supervisor plan for next outreach: Will follow up at discharge Signature Saad Silvestre RN February 05, 2018 Observed: 02/05/2018 Status: F Source: MEARS CULTURE, SPUTUM 7:05 AM [facility] [place] REPOSITORY Has pt arrived? Y Gram Stain Acceptable Specimen? Yes (<25 Epithelial cells per/lpf) Gram Stain Rare Epithelial cells Rare White Blood Cells Rare Gram positive cocci in clusters Resp. Culture Copy of report sent to Infection Control Printer [id number] 02/07/18 [id number] SHERI. ORGANISM 1: Meth. resistant Staph. aureus Amount Growth 3+ Meth. resistant Staph. aureus: REACTION Benzylpenicillin NF >=0.5 R Cefoxitin *NF + Clindamycin $$ >=8 R Inducable Clindamycin Resistan - Erythromycin $ >=8 R Gentamicin $ <=0.5 S Levofloxacin $ 4 I Linezolid $$$$ 2 S Oxacillin NF >=4 R Tigecycline $$$$ <=0.12 S Rifampin $$ <=0.5 S Tetracycline NF <=1 S Trimethoprim/Sulfametho $ <=10 S Vancomycin $ <=0.5 S (NF) indicates non-formulary drug at [facility]. Approval by Infectious Disease Specialist required before non-formulary drugs may be ordered and/or dispensed. * CLSI guidelines does not recommend testing of cephalosporins. This interpretation is deduced from Beta-lactam/penicillin results. Performed By: #### [id number] #### [facility] [address] [place], [address] BEDSIDE GLUCOSE Collected: 02/05/2018 Status: F Source: MEARS 6:56 AM [facility] REPOSITORY TYPE CODE TESTS RESULT OUT OF REFERENCE UNITS RANGE LAB L501.080 70-110 mg/dL High BEDSIDE GLU 231 Result Comment: MANAGEMENT OF PATIENT CARE PER NURSING PROTOCOL Performed By: #### L501.080 #### [facility] Point of Care [address] [place] [address] CNPTOUTREACH Observed: 02/05/2018 Status: COMPLETED Source: RUSSELL 12:00 AM [facility] REPOSITORY Patient Outreach (FAMPWS) TAMIA PANDA ([id number]) 1955 F Date Time Provider Department 02/05/18 SAAD SILVESTRE (RN) FAMPWS During your visit today, we recorded the following information about you: Saad Silvestre RN 02/05/2018 10:25 AM Signed PRIMARY CARE COORDINATION FOLLOW-UP NOTE Provider Action/FYI Discussed scheduling sleep study sooner with [facility] AROLDO ROCHA, she will discuss with hospitalist Patient identified by name and date of . YES Spoke to AROLDO Whitehead CM at [facility] Summary: Discussed pt is in hospital with Respiratory Failure and MD's have discussed at ER and hospital D/C that patient's resp and altered mental status may be due to pt not wearing CPAP. We have sleep study scheduled for pt in order to get CPAP reordered for patient but that isn't until 02/23. Asking if Charley can possibly get test moved sooner so we can get patient back on CPAP at home. States she will discuss with hospitalist. Cleaning Supervisor plan for next outreach: Will follow up at discharge Signature Saad Silvestre RN February 05, 2018 Nanda Oliveira MD 02/05/2018 10:32 AM Signed Reviewed and agree with earlier testing to prevent recurrent admission for hypoxia/hypercapnia 2/2 uncontrolled PARESH. Saad Silvestre RN 02/05/2018 3:49 PM Signed TC from Shayla at [facility], states pt is being discharged today with orders for intermediate, PT and OT. Informed PCP will sign home health orders. Saad Silvestre RN February 05, 2018 3:48 PM Nanda Oliveira MD 02/05/2018 4:26 PM Signed Reviewed and agree. TCM? Allergies As of Date: 02/05/2018 Noted Allergy Reaction ADHESIVE TAPE (ROSINS) 04/04/2015 5 - Intolerance Comments: Surgical tape leaves rash Irritates skin badly and blisters along with medical tape CATS 04/10/2016 14 - Other: See Comments Comments: Congested and itchy, difficulty breathing DOGS 04/10/2016 14 - Other: See Comments Comments: Congestion, sneezing, and difficulty breathing ORPHENADRINE 04/10/2016 16 - Unknown CIPROFLOXACIN 12/11/2011 14 - Other: See Comments Comments: Red, hot, itchy rash KEFLEX (CEPHALEXIN) 07/10/2016 4 - Hives NIACIN 04/04/2015 16 - Unknown Comments: Pt states its niacin its niaspan PENICILLIN G 10/18/2004 PENICILLINS 04/04/2015 16 - Unknown REGLAN (METOCLOPRAMIDE HCL) 03/04/2017 14 - Other: See Comments Comments: Unable to sleep XANTHINES 10/18/2004 16 - Unknown ZOFRAN (ONDANSETRON HCL (PF)) 02/03/2018 9 - Itching Date Reviewed: 02/03/2018 Reviewed by: Yessi Sanchez LPN - Fully Assessed Reason for Visit: Glove Cuffer Chronic Care [5529] Prescriptions as of 02/05/2018 Sig: SUCRALFATE 100 MG/ML ORAL GISELLE* Take 10 mL by mouth every 6 h* PANTOPRAZOLE ORAL LIQUID 40 M* Take 20 mL by mouth twice cady* ESTRADIOL 0.01% (0.1 MG/GRAM)* Apply pea-sized amount to per* COMPOUNDED PRESCRIPTION Please fit for BiPAP mask. INSULIN GLARGINE (U-100) 100 * Inject 56 Units subcutaneousl* ONETOUCH ULTRA BLUE TEST STRIP USE DIRECTED TO CHECK BLOO* ONETOUCH DELICA LANCETS 30 GA* USE TO CHECK BLOOD SUGAR 4-5 * INSULIN GLARGINE (U-100) 100 * Inject 56 units subcutaneousl* BIPAP Bilevel PAP 15/11 cmH2O with * Patient not taking: Reported on 01/23/2018 COMPOUNDED PRESCRIPTION OCD Titration for portable ox* MUPIROCIN 2 % TOPICAL OINTMENT Apply 1 application to affect* PROMETHAZINE 25 MG TABLET Take 1 tablet by mouth every * INSULIN LISPRO (U-200) 200 UN* Inject subcutaneously 14 unit* Patient taking differently: 14 Units. Inject subcutaneous* LYRICA 100 MG CAPSULE TAKE 1 CAPSULE BY MOUTH THREE* CAPSAICIN 0.075 % TOPICAL CRE* Apply 1 application to affect* ULTICARE PEN NEEDLE 31 GAUGE * USE DIRECTED. TO INJECT IN* VITAMIN C 500 MG TABLET TAKE 1 TABLET BY MOUTH DAILY FERROUS GLUCONATE 324 MG (38 * TAKE 1 TABLET BY MOUTH DAILY * STOOL SOFTENER 100 MG CAPSULE TAKE 1 CAPSULE BY MOUTH DAILY CLAUDIA-KYLE 8.6 MG TABLET TAKE 1 TABLET BY MOUTH TWICE * ISOSORBIDE MONONITRATE ER 60 * Take 1.5 tablets by mouth onc* ATORVASTATIN 40 MG TABLET TAKE 1 TABLET BY MOUTH DAILY DILTIAZEM SR 180 MG 24 HR CAP TAKE 1 CAPSULE BY MOUTH EVERY* LEVOTHYROXINE 100 MCG TABLET TAKE 1 TABLET BY MOUTH EVERY * ELIQUIS 2.5 MG TABLET TAKE 1 TABLET BY MOUTH TWICE * NITROGLYCERIN 0.4 MG SUBLINGU* DISSOLVE 1 TAB UNDER THE TONG* METOPROLOL TARTRATE 50 MG TAB* Take 1 tablet by mouth twice * GLUCOSE 4 GRAM CHEWABLE TABLET Take 4 tablets by mouth as ne* OXYGEN (HOME THERAPY) Inhale 3 L/min as instructed * FLUTICASONE 50 MCG/ACTUATION * Use 2 Sprays in each nostril * METFORMIN ER 500 MG TABLET,EX* Take 2 tablets by mouth twice* DULOXETINE 60 MG CAPSULE,MARIA EUGENIA* Take 1 capsule by mouth once * ASPIRIN 81 MG TABLET,DELAYED * Take 1 tablet by mouth every * FUROSEMIDE 40 MG TABLET Take 1 tablet by mouth twice * ALBUTEROL SULFATE HFA 90 MCG/* Inhale 2 Puffs as instructed * COMPOUNDED PRESCRIPTION Evaluation for diabetic shoes* INCONTINENCE PAD, LINER, DISP* 1 Device as needed (urinary i* COMPOUNDED PRESCRIPTION BLOOD PRESSURE CUFF FOR HOME * BLOOD-GLUCOSE METER KIT UAD to test blood sugar ALCOHOL SWABS UAD to clean skin before test* Problem List As Of Date 02/05/2018 Noted Resolved SUBJECTIVE TINNITUS [H93.19] INVALID FOR* PARESH treated with BiPAP [G47.33] INVALID FOR* Hyperlipidemia [E78.5] INVALID FOR* Coronary disease [I25.10] INVALID FOR* Diabetes mellitus, type II (HCC) [E11.9] INVALID FOR* Morbid obesity ([facility]) [E66.01] Hypothyroidism [E03.9] Anxiety [F41.9] Sleep apnea [G47.30] 02/14/2017 Essential hypertension [I10] Coronary artery disease of [place] artery of stoney* AF (paroxysmal atrial fibrillation) ([facility]) [I48.* COPD (chronic obstructive pulmonary disease) (H* GERD without esophagitis [K21.9] Dysphagia [R13.10] Constipation [K59.00] DM type 2 (diabetes mellitus, type 2) ([facility]) [E1* 02/14/2017 Shortness of breath [R06.02] 02/14/2017 Arthritis [M19.90] More... CHF (congestive heart failure) ([facility]) [I50.9] BPPV (benign paroxysmal positional vertigo) [H8*INVALID FOR* RLS (restless legs syndrome) [G25.81] INVALID FOR* Iron deficiency concern: RE RLS [E61.1] INVALID FOR* Tubular adenoma [D36.9] INVALID FOR* Incontinence [R32] More... Gastroparesis [K31.84] INVALID FOR* Pre-op testing [Z01.818] INVALID FOR* More... Hypercapnia [R06.89] INVALID FOR* S/P coronary artery stent placement [Z95.5] INVALID FOR* Stage 3 chronic kidney disease [N18.3] INVALID FOR* Depression [F32.9] INVALID FOR* Encounter Status:Closed by SAAD SILVESTRE on 02/05/18 BEDSIDE GLUCOSE Collected: 02/04/2018 Status: F Source: KINJAL 10:10 PM [facility] REPOSITORY TYPE CODE TESTS RESULT OUT OF REFERENCE UNITS RANGE LAB L501.080 70-110 mg/dL High BEDSIDE GLU 284 Result Comment: MANAGEMENT OF PATIENT CARE PER NURSING PROTOCOL Performed By: #### L501.080 #### [place] Point of Care [address] [place] [address] BEDSIDE GLUCOSE Collected: 02/04/2018 Status: F Source: MEARS 4:04 PM [facility] REPOSITORY TYPE CODE TESTS RESULT OUT OF REFERENCE UNITS RANGE LAB L501.080 70-110 mg/dL High BEDSIDE GLU 275 Result Comment: MANAGEMENT OF PATIENT CARE PER NURSING PROTOCOL Performed By: #### L501.080 #### [facility] Point of Care [address] [place] [address] PROGRESS Observed: 02/04/2018 Status: COMPLETED Source: RUSSELL 2:38 PM [facility] REPOSIT[facility] HNO ID: [id number] Author: Jessica Lobo (Sw) Service: (none) Author Type: Marriage Counselor Minister Type: Progress Notes Filed: 02/04/2018 2:39 PM Note Text: [facility] called MTM to cancel transportation to [facility] appt 02/05/18. MTM cancelled patient transportation. CONSULTATION Observed: 02/04/2018 Status: F Source: MEARS 1:44 PM [facility] REPOSITORY [facility] Medical Records Department [address] [place] [address] Consultation 02/04/18 1056 MR#: [id number] Acct: [id number] Name: TAMIA PANDA Rep #: [id number] : 1955 63 From: [place] CLIENT TECHNICAL SPECIALIST-C PCP: Bhupendra Oliveira MD Status: ADM IN Location: [place] [address] ADDENDUM by Adriano Livingston MD on 02/04/18 at 1343 Code Visit Patient seen and examined independently in conjunction with nurse practitioner. All data, including note below, was personally reviewed and I agree with the added comments. In brief, patient presented to [facility] on 02/03/2018 with complaints of severe shortness of breath and confusion. Patient has been seen by me on previous hospitalizations, but primary hotel maintenance technician is at the [facility]. Patient reports a history of COPD and asthma, but no pulmonary function tests are available for review. Patient reportedly did use BiPAP therapy overnight and nursing staff reports that mentation is much improved compared to yesterday. Patient has been told that she has obstructive sleep apnea, but was unable to comply with BiPAP therapy at home previously. Patient does have an extensive history of smoking, but quit some time ago. Patient uses 3 L nasal cannula oxygen at baseline, but only reports using pro-air as her only inhaler. Physical exam was independently performed and I agree as listed below. Patient was noted to be 97% on room air at rest. Patient was sitting in the chair on my evaluation. Patient had no conversational dyspnea. Patient does have significant kyphosis noted and significant redundant tissue of the neck noted. No wheezing was noted, but patient does have some bibasilar posterior rales noted. Irregular heart rhythm noted, but no murmurs, rubs or gallops were appreciated. No significant lower extremity edema was appreciated. Laboratory data was relatively unremarkable. Patient has not had a significant leukocytosis and blood sugars have been slightly elevated after initiation of steroid therapy. Troponins have been negative. Patient's MRSA swab was positive and patient is growing both E. coli and human Metapneumovirus Assessment and plan Patient appears to be in acute exacerbation of self-reported COPD and asthma secondary to human Horta pneumo virus. Patient does have E. coli growing in her urine, but it is unclear if this is a source given lack of symptoms. Likely okay to discontinue antibiotics from a respiratory standpoint. Did stress to the patient the importance of using BiPAP therapy overnight, especially in the setting of opiates. Patient has agreed to use BiPAP therapy while here. He transition to prednisone therapy tomorrow and wean over the next 12-14 days. Inpatient E AND M: [id number] Init Hosp L3 02/04/18 1344 <Electronically signed by Adriano Livingston MD> Date Adriano Livingston MD cc: Adriano Livingston MD; Bhupendra Oliveira MD * Signed Problem List (1) Acute on chronic respiratory failure with hypoxia and hypercapnia Status: Acute (2) COPD exacerbation Status: Acute (3) Mental status alteration Status: Acute Qualifiers: (4) Diabetes mellitus type 2 in obese Status: Chronic (5) Hypothyroidism Status: Chronic Qualifiers: (6) Hyperlipemia Status: Chronic (7) GERD (gastroesophageal reflux disease) Status: Chronic (8) Hypertension Status: Chronic (9) PARESH (obstructive sleep apnea) Status: Chronic Reason for Consult Date of Consultation: 02/04/18 Reason for Consultation: respiratory failure, pneumonia History of Present Illness: The patient is a 63 year old F with past medical history as below, presented to the ED 02/03/18 with complaints of severe shortness of breath. Family not present at time of interview, however they report per ED documentation the patient was more short of breath. She has history of pneumonia and was confused at that time, so family took her to her PCP. It was recommended she go to the ER. Patient denies any recent fever chills, increased cough or sputum production, or increased oxygen requirements. She saw her primary hotel maintenance technician CLIENT TECHNICAL SPECIALIST at [facility] a couple of weeks ago and repeat pulmonary function tests were ordered. These have not been completed. Patient states she was told she has COPD, emphysema, and asthma. Patient recently had an EGD with pyloromyotomy secondary to gastroparesis at [facility]. Patient was lethargic upon initial presentation to the ED. Initial vitals BP 123/69, pulse 102, RR 26, 100.0 F, and 92% on room air. Initial lab work showed a normal white count of 9100, hemoglobin 11.7. Chemistry remarkable for a potassium of 3.1, chloride 97, and serum bicarb of 37. Her BNP was mildly elevated at 141. She was on 2 L of oxygen supplementation, showed a pH of 7.43, PCO2 of 56.7, PO2 of 74 bicarb of 37.5, with a base excess of 13. She was placed on BiPAP and given Solu-Medrol, aerosols, Levaquin, and vancomycin. Patient did test positive for human metapneumovirus and her UA was positive for E. coli. Blood cultures are pending and strep/Legionella antigens were negative. Initial chest x- ray showed hyperexpanded lungs with no acute cardiopulmonary disease. A repeat chest x-ray was obtained on 02/04/18 and showed persistent pulmonary venous congestion and prominent interstitial markings, underlying edema not excluded. Mild cardiomegaly. Patient reports minimal subjective improvement from yesterday overall with her breathing. She does get short of breath with minimal exertion, she stood and pivoted earlier today and was unable to take any steps. She also complains of stomach weakness. She did have cough this morning with brown sputum production. She is asking if she can go home. Patient with history of smoking 1-1/2 packs a day for 25 years. She quit 12 years ago. She has remained on supplemental oxygen for several years and was recently increased from 2 to 3 L. She also was admitted to [facility] at the beginning of November and had a stress test and subsequent heart catheterization that showed some disease. Recommendations were made for risk factor modification, indefinite aspirin, Eliquis, and follow-up with her primary multimedia artist, Dr. Strickland. Patient's baseline inhaler regimen includes only Pro-air. She states she used to be on Advair, but no longer taking for unknown reason. She follows with Dr. Oliveira. Past Medical History Past Medical History (Chronic Problems): Chronic Problems Diabetes mellitus type 2 in obese (Chronic) Coronary arteriosclerosis (Chronic) cath 05/2015 mild-moderate disease medical therapy recommended Hypothyroidism (Chronic) Hyperlipemia (Chronic) GERD (gastroesophageal reflux disease) (Chronic) Hypertension (Chronic) COPD (chronic obstructive pulmonary disease) (Chronic) Chronic respiratory insufficiency (Chronic) On home oxygen at night S/P PTCA (percutaneous transluminal coronary angioplasty) (Chronic) PARESH (obstructive sleep apnea) (Chronic) Allergies cephalexin [From Keflex] Allergy (Verified 02/03/18 15:46) Unknown ciprofloxacin [From Cipro] Allergy (Verified 02/03/18 15:46) Hives latex Allergy (Verified 02/03/18 15:46) matos me niacin [From Niaspan Extended-Release] Allergy (Verified 02/03/18 15:46) Hives ondansetron [From Zofran] Allergy (Verified 02/03/18 15:46) Unknown Penicillins Allergy (Verified 02/03/18 15:46) Itching/redness Xanthines Allergy (Verified 02/03/18 15:46) Unknown orphenadrine citrate [From Norgesic] Adverse Reaction (Verified 02/03/18 15:46) groggy medical tape Adverse Reaction (Uncoded 02/03/18 15:46) blisters Home Medications: Ambulatory Orders Medication Instructions Recorded Albuterol Inhaler [Ventolin Hfa 2 puff INHALATION Q4H PRN PRN 02/03/18 (SP)] Apixaban [Eliquis] 2.5 mg PO BID 02/03/18 Ascorbic Acid [Vitamin C] 500 mg PO DAILY@0800 02/03/18 Surgical History: angioplasty, cholecystectomy, herniorrhaphy, hysterectomy, - - tubal ligation. Psychiatric History: No pertinent psych hx LOG CUT OFF SAWYER History: No pertinent LOG CUT OFF SAWYER history Lives: Alone - son there part-time Smoking Status: Former smoker - 40 [id number] Tobacco Use: Cigarettes Alcohol: None Drugs: None - *Family History Maternal History Items: No pertinent history Paternal History Items: Heart Disease, Stroke - age 62 Offspring History Items: No pertinent history - 5 children, 32 grand children and great grandchildren Review of Systems Constitutional: Reports: Fatigue, - - dry mouth, chronic. Denies: Anorexia, Chills, Fever, Night Sweats, Malaise, Weakness, Weight Change Eyes: Denies: Vision Change HEENT: Reports: Post Nasal Drip. Denies: Difficulty Swallowing, Dysphasia, Nasal Congestion, Sinus Congestion, Sore Throat Cardiovascular: Reports: Orthopnea. Denies: Chest Pain, Claudication, Chest Tightness, Edema, Light Headedness, Palpitations, Paroxysmal Noc. Dyspnea, Syncope Respiratory: Reports: Cough, Shortness of breath upon exertion, Sputum production, Wheezing. Denies: Hemoptysis, Pleuritic Pain, Shortness of breath at rest Gastrointestinal: Reports: Nausea. Denies: Abdominal Pain, Constipation, Diarrhea, Dyspepsia, Hematemesis, Hematochezia, Melena, Vomiting Genitourinary: Reports: Frequency, Nocturia. Denies: Dysuria, Hematuria, Retention Patient Problems: Active and Suspected Problems Acute on chronic respiratory failure with hypoxia and hypercapnia (Acute) COPD exacerbation (Acute) Possible pneumonia (Acute) Subjective: The patient was seen and examined. She is sitting up at the bedside chair, does not appear to be in any acute distress. She is wearing her baseline oxygen requirement of 3 L. She denies any current shortness of breath, however nursing staff reports she was unable to ambulate to the bathroom earlier secondary to dyspnea. Patient reports brown sputum production this morning, does feel better overall. She wore her BiPAP overnight but states it makes her very anxious. Objective: Clinical Impression(s) from Imaging Studies Chest X-Ray 02/03/18 16:30 IMPRESSION: No acute cardiopulmonary disease or interval change. Electronically Signed: Gurwinder Canela DO at 16:50 EDT Tel [phone], Service support , Chest X-Ray 02/04/18 05:55 IMPRESSION: Persistent pulmonary venous congestion and prominent interstitial markings, cannot exclude underlying edema. Mild cardiomegaly. Electronically Signed: Chantel Mahajan MD at 8:58 EDT Tel , Service support , - Physical Exam General: Alert, Cooperative, No apparent distress, Well developed, Well nourished, - - Oriented to self and place. Kyphotic HEENT: Atraumatic, Normocephalic Oral: No Gingival or Mucosal Lesions/ Ulcerations, Dry Mucosa Neck: Supple, No Nodes, Trachea Midline, - - large neck circumference with redundant soft tissue Lungs: No rhonchi, No wheeze, Diminished, Rales - Bibasilar, - - Symmetric expansion, no dullness to percussion. No tachypnea or accessory muscle use. Cardiovascular: Normal S1, Normal S2, No murmurs, Irregular Rate - irreg rhythm, No rub noted, No Gallop Abdomen: Bowel Sounds Present, Soft, Non Tender, Obese Extremities: No clubbing, No cyanosis, No edema, Capillary Refill Less than 3 Seconds Skin: No rashes, No breakdown Musculoskeletal: No Tenderness to Palpation of Joints or Extremities Lymphatic: No Cervical, Supraclavicular, or Inguinal Adenopathy Neurological: Cranial nerves II-XII grossly intact, Neuro grossly intact, Motor Exam 5/5 strength throughout Psych/Mental Status: Alert and oriented to time, place, person, mood and affect Vital Signs Temp Pulse Resp BP Pulse Ox 97.3 F L 87 22 H 128/76 H 97 02/04/18 09:43 02/04/18 09:43 02/04/18 09:43 02/04/18 09:43 02/04/18 09:43 Oxygen Flow Rate (L/min) 3 Oxygen Delivery Method Nasal Cannula Weight: 216 lb 11.43 oz Body Mass Index (BMI) 39.6 Intake and Output for Last 24 Hours Intake Total 672 / 672 576 / 576 Output Total 1350 / 1350 500 / 500 Balance -678 / -678 76 / 76 Microbiology Past 72 Hours 02/03/18 20:04 Respiratory Panel (PCR) - Final Mucosa - Nose Human [facility] Tests Past 24 Hrs POC Glucose POC Glucose 243 H 179 H Assessment/Plan Active and Suspected Problems Acute on chronic respiratory failure with hypoxia and hypercapnia (Acute) COPD exacerbation (Acute) Possible pneumonia (Acute) RECOMMENDATIONS 1. Wean oxygen supplementation to keep saturations 88-92%. 2. Encourage incentive spirometer and chest physiotherapy 3. Increase activity as tolerated, PT consult 4. Continue aerosols. Transition to oral steroids 5. Continue antibiotics for UTI 6. Obtain sputum culture 7. Ambulatory pulse ox prior to discharge 8. Patient can follow-up with her primary hotel maintenance technician upon discharge IMPRESSIONS 1. Acute on chronic combined respiratory failure Likely secondary to human metapneumovirus. No acute process seen on plain film chest x-ray. Initial fever of 100.0 F, otherwise afebrile with no white count. Patient does have some changes in color of sputum, was coughing up darker brown. Obtain sputum culture. Await infectious workup. Wean oxygen supplementation to keep saturations 88-92%, to prevent paradoxical CO2 retention. Transition to oral steroids. Increase activity as tolerated. Encourage incentive spirometer/Acapella. Patient will need a ambulatory pulse ox prior to discharge. She can follow-up with her primary hotel maintenance technician as previously scheduled. She should hold off on performing pulmonary function tests until her acute viral illness has resolved. 2. Encephalopathy Could be medication related, the patient had a recent procedure at [facility] and was given narcotics. Patient does does have evidence of chronic CO2 retention as well. This has improved overnight. She did wear BiPAP but states she is typically intolerant to it. 3. Self-reported COPD and asthma, self-reported PARESH Patient was reportedly wheezing presentation. No wheezing heard today on exam, however will keep on steroids but transition to oral today. Her shortness of breath/combined lung disease likely exacerbated secondary to viral infection. Patient sleep study about a year ago and is following with her primary hotel maintenance technician for this. Her pulmonary testing is not available to review at this time. She has refused noninvasive positive pressure therapy in the past. 4. Type 2 diabetes/GERD/hypertension/CAD/hypothyroidism Complicates care, management, recovery, and prognosis. Continue home medications as indicated. Insulin may need to be adjusted with steroid use. Thank you for the opportunity to participate in this patient's care, please not hesitate contact us with any further questions or concerns. This note was generated with Cureeo dictation software. It may contain incorrect words, spelling, and punctuation that were not noted in checking the note before signing. 02/04/18 1147 <Electronically signed by Tete GURROLA> Date Tete Toledo NP-C Cosigner Signature (if applicable): Date CC: Adriano Livingston MD; Bhupendra Oliveira MD Signed BEDSIDE GLUCOSE Collected: 02/04/2018 Status: F Source: KINJAL 11:13 AM [facility] REPOSITORY TYPE CODE TESTS RESULT OUT OF REFERENCE UNITS RANGE LAB L501.080 70-110 mg/dL High BEDSIDE GLU 347 Result Comment: MANAGEMENT OF PATIENT CARE PER NURSING PROTOCOL Performed By: #### L501.080 #### [facility] Point of Care [address] [place] [address] BEDSIDE GLUCOSE Collected: 02/04/2018 Status: F Source: KINJAL 6:49 AM [facility] REPOSITORY TYPE CODE TESTS RESULT OUT OF REFERENCE UNITS RANGE LAB L501.080 70-110 mg/dL High BEDSIDE GLU 243 Result Comment: MANAGEMENT OF PATIENT CARE PER NURSING PROTOCOL Performed By: #### L501.080 #### [facility] Point of Care [address] [place] [address] CBC W/DIFF, AUTOMATED Collected: 02/04/2018 Status: F Source: KINJAL 5:46 AM [facility] REPOSITORY TYPE CODE TESTS RESULT OUT OF RANGE REFERENCE UNITS LAB L100.1000 4.4-11.0 K/mm3 Normal WBC 6.3 LAB L100.1200 4.2-5.4 M/mm3 Low RBC 4.00 LAB L100.1300 12.0-15.0 g/dl Low HGB 11.8 LAB L100.1400 37-47 % Normal HCT 38.0 LAB L100.1500 81-99 fL Normal MCV 95.0 LAB L100.1600 27.0-32.0 pg Normal MCH 29.5 LAB L100.1700 32-36 g/gl Low MCHC 31.1 LAB L100.1810 11.6-14.6 % High RDW CV 15.2 LAB L100.1820 35.1-43.9 fl High RDW SD 52.5 LAB L100.1900 150-450 K/mm3 Normal PLT 179 LAB L100.2000 6.2-12.0 fl Normal MPV 10.5 LAB L100.2100 47-70 % High NEUT% 90.0 LAB L100.2200 19-41 % Low LY% 8.1 LAB L100.2300 0-10 % Normal MONO% 1.7 LAB L100.2400 0-5 % Normal EO% 0.0 LAB L100.2500 0-1 % Normal BASO% 0.0 LAB L100.2550 0.0-0.9 % Normal IM GRAN % 0.200 Result Comment: IG% - Immature Granulocytes (promyelocytes, myelocytes and metamyelocytes) > 1% indicates that a LEFT SHIFT is Present. LAB L100.2620 2.0-7.7 X10 3/uL Normal Absolute Neut 5.7 LAB L100.2720 0.83-4.51 X10 3/ul Low Absolute Lymph 0.51 LAB L100.4500 Normal SMEAR COMMENT SCANNED Performed By: #### L100.0100 #### [facility] [address] [place], [address] TROPONIN-I Collected: 02/04/2018 Status: F Source: MEARS 5:46 AM [facility] REPOSITORY TYPE CODE TESTS RESULT OUT OF RANGE REFERENCE UNITS LAB L501.4010 <0.045 ng/mL Normal < 0.015 TROPONIN-I Result Comment: TROPONIN-I EXPECTED VALUES <0.045 Negative 0.045 - 0.590 Consistent with Cardiac Damage > OR = 0.600 Critical Value Not every elevated troponin is indicative of DC. These values should be used with clinical judgement in examining the patient's clinical picture for diagnosis. To establish a diagnosis of DC versus myocardial injury, there must be a demonstrated rise and/or fall in the troponin values, in addition to ischemic symptoms, EKG changes, new regional wall motion abnormality, and/or angiographical evidence. PLEASE NOTE: REFERENCE RANGES EDITED 18 Performed By: #### L501.4010 #### [facility] [place], [address] COMPREHENSIVE METABOLIC Collected: 02/04/2018 Status: F Source: KINJAL [facility] 5:46 AM [facility] REPOSITORY TYPE CODE TESTS RESULT OUT OF RANGE REFERENCE UNITS LAB L501.0100 74-106 mg/dL High GLU 213 Result Comment: Glucose result greater than or equal to 200 mg/dL suggests DIABETES MELLITUS per A.D.A. criteria. Please note revised GLUCOSE reference range effective 2017. LAB L501.1000 7-18 mg/dL Normal BUN 8 LAB L501.1100 0.55-1.02 mg/dL Normal CREAT,SERUM 0.56 Result Comment: The validity of the calculated GFR AND GFRAA in patients over 70 years has not been determined. Clinical correlation is essential. LAB L501.1110 >60 mL/min Normal EST GFR 115 Result Comment: Non- GFR Calc LAB L501.1115 >60 mL/min Normal EST GFR - AA 139 Result Comment: GFR Calc LAB L501.1255 ml/min Normal Estimated CRCL 81.33 LAB L501.1300 10-20 RATIO Normal BUN/CRE 14.2 LAB L501.1500 6.4-8. g/dL Normal 2 T PROT 7.0 LAB L501.1800 3.2-5. g/dL Low 0 ALB 2.7 LAB L501.1950 2.2-4. g/dL High 2 GLOB 4.3 LAB L501.2000 0.9-2. RATIO Low 4 A/G 0.6 LAB L501.2200 8.5-10 mg/dL Low .1 CA 8.0 LAB L501.4100 15-37 U/L Normal AST 17 LAB L501.4305 45-117 U/L Low ALK P 44 LAB L501.4405 13-56 U/L Normal ALT 16 LAB L501.4600 0.20-1 mg/dL High .00 T BILI 1.10 LAB L501.5300 136-14 mmol/L Normal 5 NA 143 LAB L501.5600 3.5-5. mmol/L Normal 1 K 3.6 LAB L501.5900 98-107 mmol/L Normal CL 104 LAB L501.6100 21.0-3 mmol/L Normal 2.0 CO2 29.0 LAB L501.6200 5-15 Normal GAP 10 Performed By: #### L500.4050 #### [facility] [address] [place], [address] M R STAPH AUREUS Collected: 02/04/2018 Status: F Source: MEARS DNA BY PCR 1:50 AM [facility] REPOSITORY Order Comment: RESULTS CALLED TO NINA BHATIA PCU 02/04/18 0325 Em Avina. REPORT READ BACK BY SAME. TYPE CODE TESTS RESULT OUT OF REFERENCE UNITS RANGE LAB L8200.1100 Negative High MRSA POSITIVE RESULT Performed By: #### L8200.1000 #### [facility] [address] [place], [address] TROPONIN-I Collected: 02/04/2018 Status: F Source: KINJAL 1:35 AM [facility] REPOSITORY TYPE CODE TESTS RESULT OUT OF RANGE REFERENCE UNITS LAB L501.4010 <0.045 ng/mL Normal < 0.015 TROPONIN-I Result Comment: TROPONIN-I EXPECTED VALUES <0.045 Negative 0.045 - 0.590 Consistent with Cardiac Damage > OR = 0.600 Critical Value Not every elevated troponin is indicative of DC. These values should be used with clinical judgement in examining the patient's clinical picture for diagnosis. To establish a diagnosis of DC versus myocardial injury, there must be a demonstrated rise and/or fall in the troponin values, in addition to ischemic symptoms, EKG changes, new regional wall motion abnormality, and/or angiographical evidence. PLEASE NOTE: REFERENCE RANGES EDITED 18 Performed By: #### L501.4010 #### [facility] [address] [place], [address] EMERGENCY DEPARTMENT Observed: 02/04/2018 Status: F Source: KINJAL SUMMARY 12:15 AM [facility] REPOSITORY [facility] Medical Records Department [address] [place] [address] Emergency Department Summary 02/03/18 1902 MR#: [id number] Acct: [id number] Name: TAMIA PANDA Rep #: [id number] : 1955 63 From: Robert Baird MD PCP: Bhupendra Oliveira MD Status: ADM IN - ER Visit Summary Date of Service: 02/03/18 Chief Complaint: Shortness of breath and confusion History of Present Illness: The patient is a [address] Oliveira. Family reports that they saw her yesterday and she complained of shortness of breath it was similar to when she has had pneumonia in the past. Today she went to her primary care physician and was confused. Upon arrival to the emergency department the patient is lethargic and not answering any questions. Per family the patient had an EGD and pyloromyotomy 4 days ago at [facility]. Physical Examination: Vitals: 100.0, 123/69, 102, 26, 92% on 3 L nasal cannula which is her home O2. General: Well-nourished and well-developed. Head: Normocephalic atraumatic. Neck: Supple, no lymphadenopathy. No JVD. Nontender. Cardiovascular: Irregular tachycardic rhythm without murmur. Respiratory: Moderate respiratory distress with decreased air movement and wheezing bilaterally. Abdominal: Soft, nontender, nondistended, normal bowel sounds. No guarding, rebound, or peritoneal signs. Back: Nontender. Extremities: Nontender, 1+ pitting edema of her lower extremities bilaterally. Skin: Normal color, no rash. Neurologic: Lethargic, but arouses to voice. Moves all extremities well. Psych: Normal affect. Test Results: EKG is A. fib at [address] changes. There is no significant change from last month. Troponin is negative. Cath UA shows 10- 25 white blood cells. Chem-7 is marked potassium 3.1, chloride 97, CO2 37. CBC is remarkable for an H AND H of 11.7 36.7, segmented neutrophils 79, lymphocytes 6, monocytes of 12. Lactic acid is 1.6. ABG shows a pH of 7.43 with a bicarb at 37.5 and PCO2 of 56.7. Chest x-ray shows a poor inspiration and rotation. She has elevation of the right hemidiaphragm. Emergency Department Course and Treatment: Patient was placed on BiPAP. She was given albuterol Atrovent aerosols. She was given Solu-Medrol IV. Her sensorium has improved greatly while in the emergency department. Chest x-ray is concerning for a right lower lobe infiltrate in my opinion. Patient has multiple medication allergies. She is given dose Levaquin and vancomycin IV as she was recently in the hospital. Also the patient was prescribed liquid oxycodone following her procedure and some of this may be a encephalopathy secondary to opiates. Treatment Plan: Patient was discussed with Dr. Wright. She will be admitted to the hospital for further relation and treatment. Disposition: Admitted in serious condition. Impression: 1. Respiratory failure on BiPAP. 2. Coagulopathy on Eliquis. 3. 4 days status post EGD and pyloromyotomy. 4. Critical care time 30 minutes. This note was generated with Cureeo dictation software. It may contain incorrect words, spelling, and punctuation that were not noted in review of the chart prior to signing ED Disposition - Plan for ED Patient: Chief Complaint: Shortness of Breath What to do if you have Problems For any increased pain, shortness of breath, bleeding, nausea or vomiting, chest pain, or any unexpected problems, contact your Primary Care Provider. Call [facility] ([phone]) or report to the closest Emergency Room. Call 911 if necessary. 02/04/18 0015 <Electronically signed by Robert Baird MD> Date Robert Baird MD Cosigner Signature (If Indicated): Date CC: Bhupendra Oliveira MD CHEST PA AND LATERAL Observed: 02/04/2018 Status: F Source: MEARS 12:00 AM [facility] REPOSITORY [facility] Imaging Services [address] [place] [address] [place] [address] Chest PA and Lateral MR#: [id number] Acct: [id number] Name: TAMIA PANDA Rep #: [id number] : 1955 F 63 From: Chantel Mahajan MD PCP: Bhupendra Oliveira MD Status: ADM IN Study: Chest PA and Lateral Date of Exam: 02/04/18 Exam# [id number] Ordering Dr: Joseph Wright MD STUDY: X-RAY CHEST REASON FOR EXAM: Female, 63 years old. Shortness of breath TECHNIQUE: AP and lateral views of the chest. COMPARISON: October 16 and February 03, 2018 FINDINGS: Facial soft tissues obscure anatomic detail of the apices. There is stable perihilar fullness and prominent interstitial markings. There is mild cardiomegaly. Normal visualized aortic arch and descending thoracic aorta. There are diffuse degenerative changes of the visualized thoracic spine. Normal visualized ribs, clavicles, and shoulders. There is no demonstrated abnormality of the visualized soft tissue structures of the upper abdomen. RAD/Chest PA and Lateral IMPRESSION: Persistent pulmonary venous congestion and prominent interstitial markings, cannot exclude underlying edema. Mild cardiomegaly. Electronically Signed: Chantel Mahajan MD at 8:58 EDT Tel , Service support , CC: Bhupendra Oliveira MD; Joseph Wright MD Pipe Recovery Specialist: Signed CR-CHEST PA AND Observed: 02/04/2018 Status: F Source: RUSSELL LATERAL IMPORT 12:00 AM [facility] REPOSITORY Images were obtained outside of [facility] [id number] BEDSIDE GLUCOSE Collected: 02/03/2018 Status: F Source: KINJAL 9:35 PM [facility] REPOSITORY TYPE CODE TESTS RESULT OUT OF REFERENCE UNITS RANGE LAB L501.080 70-110 mg/dL High BEDSIDE GLU 179 Result Comment: MANAGEMENT OF PATIENT CARE PER NURSING PROTOCOL Performed By: #### L501.080 #### [facility] Point of Care [address] [place], [place] [address] Observed: 02/03/2018 Status: F Source: MEARS RESPIRATORY PANEL 8:04 PM [facility] MOLECULAR REPOSITORY RESULTS CALLED TO NINA BHATIA U 02/04/18 0525 Em Avina. REPORT READ BACK BY SAME. Copy of report sent to Infection Control Printer [id number] 02/04/18 0525 MARYLien EnforcementMAGY. RP PANEL ADENOVIRUS Not Detected HUMAN METAPHNEUMO Positive for HUMAN METAPHNEUMO VIRUS by NAAT technology INFLUENZA A Not Detected INFLUENZA A (SUBTYPE H1) Not Detected INFLUENZA A (SUBTYPE H3) Not Detected INFLUENZA B Not Detected PARAINFLUENZA 1 Not Detected PARAINFLUENZA 2 Not Detected PARAINFLUENZA 3 Not Detected PARAINFLUENZA 4 Not Detected RHINOVIRUS Not Detected RSV A Not Detected RSV B Not Detected NAAT METHOD Testing was performed using nucleic acid amplification ORGANISM 1: HUMAN META Performed By: #### M100.638 #### [facility] [address] [place], [place], [address] HISTORY AND PHYSICAL Observed: 02/03/2018 Status: F Source: MEARS EXAM 7:38 PM [facility] REPOSITORY [facility] Medical Records Department [address] [place] [address] History and Physical 02/03/18 1912 MR#: [id number] Acct: [id number] Name: TAMIA PANDA Jennifer Rep #: [id number] : 1955 63 From: Joseph Wright MD PCP: Bhupendra Oliveira MD Status: ADM IN Y [id number] Problem List (1) Acute on chronic respiratory failure with hypoxia and hypercapnia Status: Acute (2) COPD exacerbation Status: Acute (3) Possible pneumonia Status: Acute (4) Mental status alteration Status: Acute Qualifiers: (5) COPD with moderate acute bronchitis Status: Acute (6) Acute hypoglycemia Status: Resolved (7) Diabetes mellitus type 2 in obese Status: Chronic (8) Coronary arteriosclerosis Status: Chronic Comment: cath 05/2015 mild-moderate disease medical therapy recommended (9) Hypothyroidism Status: Chronic Qualifiers: (10) Hyperlipemia Status: Chronic (11) GERD (gastroesophageal reflux disease) Status: Chronic (12) Hypertension Status: Chronic (13) COPD (chronic obstructive pulmonary disease) Status: Chronic Qualifiers: (14) Chronic respiratory insufficiency Status: Chronic Comment: On home oxygen at night (15) S/P PTCA (percutaneous transluminal coronary angioplasty) Status: Chronic (16) PARESH (obstructive sleep apnea) Status: Chronic History of Present Illness Date of Admission: 02/03/18 Chief Complaint: Shortness of breath for 2 days. drowsy and lethargic The patient is a 63 year old F with history of COPD, chronic combined respiratory failure on 3 L of home oxygen and obstructive sleep apnea on CPAP was brought to ER for progressive worsening of shortness of breath for 2 days. Patient is very short of breath, drowsy and lethargic and on BiPAP and therefore history taken from patient's son on phone and daughter at bedside and from ER physician Dr Baird. I talked to the patient's son on phone and he said patient also complained of chest tightness, diffuse all over, nonspecific along with worsening of cough. Cough is mainly dry but she brings of clear sputum sometimes. She had EGD and pyloromyotomy 4 days ago and [facility] for severe gastroparesis. [] Past Medical History Past Medical History (Chronic Problems): Chronic Problems Diabetes mellitus type 2 in obese (Chronic) Coronary arteriosclerosis (Chronic) cath 05/2015 mild-moderate disease medical therapy recommended Hypothyroidism (Chronic) Hyperlipemia (Chronic) GERD (gastroesophageal reflux disease) (Chronic) Hypertension (Chronic) COPD (chronic obstructive pulmonary disease) (Chronic) Chronic respiratory insufficiency (Chronic) On home oxygen at night S/P PTCA (percutaneous transluminal coronary angioplasty) (Chronic) PARESH (obstructive sleep apnea) (Chronic) Allergies cephalexin [From Keflex] Allergy (Verified 02/03/18 15:46) Unknown ciprofloxacin [From Cipro] Allergy (Verified 02/03/18 15:46) Hives latex Allergy (Verified 02/03/18 15:46) matos me niacin [From Niaspan Extended-Release] Allergy (Verified 02/03/18 15:46) Hives ondansetron [From Zofran] Allergy (Verified 02/03/18 15:46) Unknown Penicillins Allergy (Verified 02/03/18 15:46) Itching/redness Xanthines Allergy (Verified 02/03/18 15:46) Unknown orphenadrine citrate [From Norgesic] Adverse Reaction (Verified 02/03/18 15:46) groggy medical tape Adverse Reaction (Uncoded 02/03/18 15:46) blisters Home Medications: Ambulatory Orders Medication Instructions Recorded Albuterol Inhaler [Ventolin Hfa 2 puff INHALATION Q4H PRN PRN 02/03/18 (SP)] Apixaban [Eliquis] 2.5 mg PO BID 02/03/18 Ascorbic Acid [Vitamin C] 500 mg PO DAILY@0800 02/03/18 Surgical History: angioplasty, cholecystectomy, herniorrhaphy, hysterectomy, - - tubal ligation. Psychiatric History: No pertinent psych hx LOG CUT OFF SAWYER History: No pertinent LOG CUT OFF SAWYER history Smoking Status: Former smoker Tobacco Use: Cigarettes - *Family History Maternal History Items: No pertinent history Paternal History Items: Heart Disease, Stroke - age 62 Offspring History Items: No pertinent history - 5 children, 32 grand children and great grandchildren Review of Systems Constitutional: Denies: Chills, Fever Respiratory: Reports: Shortness of Breath, Shortness of breath upon exertion Unable to obtain accurate/complete ROS d/t: Patient is drowsy and lethargic and very short of breath on BiPAP VTE Information - Inpt Only VTE Present on Admission: No VTE Mechan Device Prophylaxis: SCD's VTE Pharm Prophylaxis ordered?: Yes Patient Problems: Active and Suspected Problems Acute on chronic respiratory failure with hypoxia and hypercapnia (Acute) COPD exacerbation (Acute) Possible pneumonia (Acute) - Physical Exam General: Cooperative, Confused, Disoriented, Lethargic HEENT: Atraumatic, PERRLA, EOMI, Normocephalic Oral: Dry Mucosa, - - On BiPAP Neck: Supple, No JVD, Negative Carotid Bruits Lungs: Diminished, Rhonchi, Short of Breath, Tachypneic, Using Accessory Muscles Cardiovascular: Normal S1, Normal S2, No murmurs, Tachycardic Abdomen: Bowel Sounds Present, Soft, Non Tender, Non-Distended Extremities: Capillary Refill Less than 3 Seconds, Edema Skin: No rashes, No breakdown Musculoskeletal: No Tenderness to Palpation of Joints or Extremities, Arthritic Changes, Muscle Wasting Neurological: Cranial nerves II-XII grossly intact, - - Nonspecific lethargic Vital Signs Temp Pulse Resp BP Pulse Ox 100.0 F H 100 25 H 125/82 H 98 02/03/18 15:38 02/03/18 18:04 02/03/18 18:04 02/03/18 18:04 02/03/18 18:04 Assessment/Plan Active and Suspected Problems Acute on chronic respiratory failure with hypoxia and hypercapnia (Acute) COPD exacerbation (Acute) Possible pneumonia (Acute) The patient is a 63 year old F with history of COPD, chronic combined respiratory failure on 3 L of home oxygen and CPAP was brought to ER for progressive worsening of shortness of breath for 2 days. Patient is very short of breath, drowsy and lethargic and on BiPAP and therefore history taken from patient's son on phone and daughter at bedside and from ER physician Dr Baird. I talked to the patient's son on phone and he said patient also complained of chest tightness, diffuse all over, nonspecific along with worsening of cough. Cough is mainly dry but she brings of clear sputum sometimes. She had EGD and pyloromyotomy 4 days ago and [facility] for severe gastroparesis. In ED, patient was found tachypneic, respiratory rate 24, tachycardic heart rate 113, pulse ox 94% on BiPAP. Chest x-ray does not show acute change but soft tissue shadow over right lung lobe obscuring right lung base. EKG shows A. fib at 107 bpm. Patient on Eliquis 2.5 mg twice daily 1. Acute on chronic combined hypoxic and hypercarbic respiratory failure: Patient is being admitted on the stepdown unit. Continue on BiPAP and taper off as per improvement in respiratory distress and pulse oximetry. Bronchodilator, DuoNeb every 4 hourly, IV Solu-Medrol, chest physiotherapy and IV antibiotics. Pulmonary consult. 2. COPD exacerbation most probably due to moderate acute bronchitis: At this time it is not clear it is viral bronchitis or pneumonia exacerbating factor. MRSA nasal screen. Continue medications as mentioned above. 3. Possible viral bronchitis/ healthcare associated pneumonia: Chest x-ray quality is not good. Repeat chest x-ray PA and lateral tomorrow a.m. For clinical suspicion, empirically treat with IV aztreonam and vancomycin for the suspicion of healthcare associated pneumonia as the patient had procedure in [facility] on last Friday as mentioned above. Pneumonia workup with urinary antigens, sputum culture and blood cultures 2 ordered. 4. Acute encephalopathy possible metabolic/infectious encephalopathy: Treat the underlying cause 5. Diabetes mellitus type 2 with obesity: Accu-Chek before meals and at bedtime and cover with NovoLog sliding scale. 6. Chest tightness with H/o Coronary artery disease: Cardiac enzymes ordered as the patient complained of chest tightness. Patient had cardiac cath in December [address] Marvin. Found to have single-vessel coronary artery disease of left circumflex, occluded very small left circumflex with right to left collateral. LV gram EF 75%. Mid LAD 40%, distal LAD 60% mid circumflex occluded with [id number]-brhl collateral. Mid RCA less than 30%, right PDA less than 30%. At that time patient was started on Eliquis in December 2017 and DC Plavix. Follows Dr. Strickland Multiple other comorbidities include coronary artery disease, dyslipidemia, hypothyroidism, hypertension, obstructive sleep apnea on CPAP: Home medication reconciliation done. Clinical Impression(s) from Imaging Studies Chest X-Ray 02/03/18 16:30 IMPRESSION: No acute cardiopulmonary disease or interval change. Electronically Signed: Gurwinder Canela DO at 16:50 EDT Tel [phone], Service support , Laboratory Results 02/03/18 16:00: WBC 9.1, RBC 3.80 L, Hgb 11.7 L, Hct 36.7 L, MCV 96.6, MCH 30.8, MCHC 31.9 L, RDW 15.3 H, RDW Differential 51.2 H, Plt Count 182, MPV 10.9, Immature Gran % (Auto) 0.100, Neut % (Auto) 79.4 H, Lymph % (Auto) 6.6 L, [place] % (Auto) 11.8 H, Eos % (Auto) 1.9, Baso % (Auto) 0.2, Absolute Neuts (auto) 7.2, Absolute Lymphs (auto) 0.60 L, Total Counted Not Reportable, Differential Comment SCANNED 02/03/18 16:00: Sodium 140, Potassium 3.1 L, Chloride 97 L, Carbon Dioxide 37.0 H, Anion Gap 6, BUN 8, Creatinine 0.72, Estim Creat Clear Calc 63.25, Est GFR (MDRD) Af Amer 105, Est GFR (MDRD) Non-Af 87, BUN/Creatinine Ratio 11.1, Glucose 104, Calcium 8.7, Troponin I < 0.015 02/03/18 16:00: Lactic Acid 1.6 02/03/18 16:09: Specimen Type ART, Sample Site L Brachial, pH 7.43, Bicarbonate Actual 37.5 H, POC Total CO2 39, Base Excess 13 H, O2 Saturation 95, ABG pCO2 56.7 H, ABG pO2 74 L, Salo Test POS, O2 Delivery Device Nasal Can, Liter Flow 2.0, Blood Gas Notified Whom ED MD, Blood Gas Notified Time 1607 02/03/18 17:20: Urine Color Yellow, Urine Clarity Sl. Cloudy, Urine pH 7.0, Ur Specific Dixon 1.005, Urine Protein Negative, Urine Glucose (UA) Normal, Urine Ketones Negative, Urine Occult Blood 25 H, Urine Nitrite Negative, Urine Bilirubin Negative, Urine Urobilinogen 1 H, Ur Leukocyte Esterase 500 H, Urine RBC 0-5 SEEN, Urine WBC 10- 25 SEEN, Ur Squamous Epith Cells 0-5 SEEN, Amorphous Sediment 1+ PHOS, Urine Bacteria 0 SEEN, Urine Mucus 0 SEEN Code Visit Inpatient E AND M: [id number] Init Hosp L3 02/03/181937 <Electronically signed by Joseph Wright MD> Date Joseph Wright MD Cosigner Signature: Date (if applicable) CC: Bhupendra Oliveira MD; Joseph Wright MD Signed URINALYSIS, COMPLETE Collected: 02/03/2018 Status: F Source: KINJAL 5:20 PM [facility] REPOSITORY Order Comment: Order Date: 02/03/18 How was Urine Obtained? CATHETER SPECIMEN TYPE CODE TESTS RESULT OUT OF RANGE REFERENCE UNITS LAB L400.3000 Yellow COLOR Normal Yellow LAB L400.3050 Clear Normal CLARITY Sl. Cloudy LAB L400.3200 Normal mg/dl Normal GLUCOSE, UR Normal LAB L400.3300 Negative mg/dL Normal BILIRUBIN URINE Negative LAB L400.3400 Negative mg/dl Normal KETONE UR Negative LAB L400.3465 1.002-1.030 Normal SP.GR. DIPSTX 1.005 LAB L400.3550 5.0 - 8.0 pH UR Normal 7.0 LAB L400.3600 Negative mg/dl PROT Normal DIPSTX Negative LAB L400.3700 Normal mg/dl High 1 UROBILI LAB L400.3750 Negative Normal NITRITE UR Negative LAB L400.3780 Negative /ul High 25 OCCULT BLOOD-UR LAB L400.3800 Negative /ul High LEUK ESTERASE 500 LAB L400.4050 0-5 /hpf WBC Normal 10-25 SEEN LAB L400.4100 0-5 /hpf Normal RBC-UA 0-5 SEEN LAB L400.4150 5-10 /hpf SQUAM Normal EPI 0-5 SEEN LAB L400.4300 None Seen /hpf 0 Normal BACTERIA SEEN LAB L400.4350 <or=2+ /hpf 0 Normal MUCUS, URINE SEEN LAB L400.4900 1+ Normal AMORPHOUS PHOS Performed By: #### L400.0001 #### [facility] [address] [place] [address], [id number] Observed: 02/03/2018 Status: F Source: MEARS LEGIONELLA ANTIGEN 5:20 PM [facility] URINE REPOSITORY Legionella, UR Legionella Antigen result interpretation: Negative Presumptive negative for Legionella pneumophila serogroup 1 antigen in urine, suggesting no recent or current infection. POSITIVE Presumptive positive for Legionella pneumophila serogroup 1 antigen in urine, suggesting current or past infection. Legionella Ag, Urine Negative (See interpretation below) Performed By: #### M300.4500 #### [facility] [address] [place] [address], [id number] STREP Observed: 02/03/2018 Status: F Source: MEARS PNEUMONIAE ANTIG(UR,CSF) 5:20 PM [facility] REPOSITORY S pneumo Ag URINE INTERPRETATION Positive Urine Positive for pneumococcal pneumonia. Negative Urine Presumptive negative for pneumococcal pneumonia, suggesting no current or recent pneumococcal infection. Infection due to S pneumoniae cannot be ruled out since the antigen present in the sample may be below the detection limit of the test. CSF INTERPRETATION Positive CSF Positive for pneumococcal meningitis. Negative CSF Presumptive negative for pneumococcal meningitis. Infection due to S pneumoniae cannot be ruled out since the antigen present in the sample may be below the detection limit of the test. Strep pneumo Test Negative URINE (See interpretation below) Performed By: #### M300.4600 #### [facility] [address] [place], [address] Observed: 02/03/2018 Status: F Source: MEARS CULTURE, URINE 5:20 PM [facility] REPOSITORY Urine Culture ORGANISM 1: Presumptive E. coli [place] Count >100,000 Presumptive E. coli: REACTION Amoxacillin/Clavulanic Acid $ <=2 S Ampicillin $ <=2 S Ampicillin/Sulbactam $ <=2 S Cefazolin $ <=4 S Cefepime $ <=1 S Ceftriaxone $ <=1 S Ciprofloxacin $ <=0.25 S ESBL - Ertapenim $$$ <=0.5 S Gentamicin $ <=1 S Imipenem *NF <=0.25 S Levofloxacin $ <=0.12 S Nitrofurantoin $ <=16 S Piperacillin/Tazobactam $$ <=4 S Tobramycin $ <=1 S Trimethoprim/Sulfametho $ <=20 S (NF) indicates non-formulary drug at [facility]. Approval by Infectious Disease Specialist required before non-formulary drugs may be ordered and/or dispensed. Performed By: #### M100.0650 #### [facility] [address] [facility] [place], [address] PROGRESS Observed: 02/03/2018 Status: COMPLETED Source: RUSSELL 4:54 PM [facility] REPOSITORY HNO ID: [id number] Author: Saad Allen) Larry Service: (none) Author Type: Registered Nurse Type: Progress Notes Filed: 02/03/2018 4:58 PM Note Text: PRIMARY CARE COORDINATION IN OFFICE VISIT WITH PCP Patient has been identified by name and date of . PCP Assessment/Plan: Reviewed PCP plan with patient using Teach Back Pt very drowsy and slurring words, oriented to person and people in room but unable to communicate clearly PCC Plan of Care: PCC Interventions: Discussed patient with ARTURO Wilson and pt has had multiple ER visits due to confusion/slurred speech. Testing has been negative. Last ER visit felt episodes could be due to pt not wearing BIPAP and oxygen issues with PARESH Next Office Visit: 02/11/2018 Plan For Next Call: Next week Saad Silvestre RN February 03, 2018 Observed: 02/03/2018 Status: F Source: KINJAL CULTURE, BLOOD (WB) 4:20 PM [facility] REPOSITORY BC No growth in 5 days. Performed By: #### M200.1000 #### [facility] [address] [place], [place], [id number] BLOOD GASES BY CPS Collected: 02/03/2018 Status: F Source: KINJAL 4:09 PM [facility] REPOSITORY TYPE CODE TESTS RESULT OUT OF RANGE REFERENCE UNITS LAB L9000.9990 Normal BLD GAS TYPE ART LAB L9001.1000 L Normal SITE Brachial LAB L9001.1010 Normal SALO TEST POS LAB L9001.1050 O2 Normal Delivery Dev Nasal Can LAB L9001.1055 /min Normal LPM 2.0 LAB L9001.1104 ED Normal Results To MD LAB L9001.1105 Normal Time Given 1607 LAB L9001.1110 7.35-7.45 pH Normal - I-STAT 7.43 LAB L9001.1210 35-45 mmHg High pCO2 - ISTAT 56.7 LAB L9001.1310 75-100 mmHG Low 74 PO2 I-STAT LAB L9001.2300 22-26 mmol/L High HCO3 ISTAT 37.5 LAB L9001.2400 -2 to +2 mmol/L High BE 13 ISTAT LAB L9001.2415 mmol/L 39 Normal TOTAL CO2 ISTAT LAB L9001.2425 95-99 % 95 Normal SO2 ISTAT Performed By: #### L9000.0800 #### [facility] Point of Care [address] [place], [place] [address] BASIC METABOLIC Collected: 02/03/2018 Status: F Source: KINJAL PROFILE (BMP) 4:00 PM [facility] REPOSITORY TYPE CODE TESTS RESULT OUT OF RANGE REFERENCE UNITS LAB L501.0100 74-106 mg/dL Normal GLU 104 Result Comment: Fasting Glucose result from 100 to 125 mg/dL suggests IMPAIRED HOMEOSTASIS per A.D.A. criteria. Please note revised GLUCOSE reference range effective 2017. LAB L501.1000 7-18 mg/dL Normal BUN 8 LAB L501.1100 0.55-1.02 mg/dL Normal CREAT,SERUM 0.72 Result Comment: The validity of the calculated GFR AND GFRAA in patients over 70 years has not been determined. Clinical correlation is essential. LAB L501.1110 >60 mL/min Normal EST GFR 87 Result Comment: Non- GFR Calc LAB L501.1115 >60 mL/min Normal EST GFR - AA 105 Result Comment: GFR Calc LAB L501.1255 ml/min Normal Estimated CRCL 63.25 LAB L501.1300 10-20 RATIO Normal BUN/CRE 11.1 LAB L501.2200 8.5-10 mg/dL Normal .1 CA 8.7 LAB L501.5300 136-14 mmol/L Normal 5 NA 140 LAB L501.5600 3.5-5. mmol/L Low 1 K 3.1 Result Comment: Slight Hemolysis, Result may be falsely increased. LAB L501.5900 98-107 mmol/L Low CL 97 LAB L501.6100 21.0-32.0 mmol/L High CO2 37.0 LAB L501.6200 5-15 Normal GAP 6 Performed By: #### L500.2500, L501.4010 #### [facility] [address] [facility] [facility] [place], [place], [address] TROPONIN-I Collected: 02/03/2018 Status: F Source: MEARS 4:00 PM [facility] REPOSITORY TYPE CODE TESTS RESULT OUT OF RANGE REFERENCE UNITS LAB L501.4010 <0.045 ng/mL Normal < 0.015 TROPONIN-I Result Comment: TROPONIN-I EXPECTED VALUES <0.045 Negative 0.045 - 0.590 Consistent with Cardiac Damage > OR = 0.600 Critical Value Not every elevated troponin is indicative of DC. These values should be used with clinical judgement in examining the patient's clinical picture for diagnosis. To establish a diagnosis of DC versus myocardial injury, there must be a demonstrated rise and/or fall in the troponin values, in addition to ischemic symptoms, EKG changes, new regional wall motion abnormality, and/or angiographical evidence. PLEASE NOTE: REFERENCE RANGES EDITED 18 Performed By: #### L500.2500, L501.4010 #### [facility] [address] [place], [address] LACTIC ACID Collected: 02/03/2018 Status: F Source: MEARS 4:00 PM [facility] REPOSITORY Order Comment: Yes/No query for Sepsis Lactate Rule Y TYPE CODE TESTS RESULT OUT OF RANGE REFERENCE UNITS LAB L503.6005 0.4-2.0 mmol/L Normal LACTIC ACID 1.6 Performed By: #### L503.6005 #### [facility] [address] [place], [address] CBC W/DIFF, AUTOMATED Collected: 02/03/2018 Status: F Source: MEARS 4:00 PM [facility] REPOSITORY TYPE CODE TESTS RESULT OUT OF RANGE REFERENCE UNITS LAB L100.1000 4.4-11.0 K/mm3 Normal WBC 9.1 LAB L100.1200 4.2-5.4 M/mm3 Low RBC 3.80 LAB L100.1300 12.0-15.0 g/dl Low HGB 11.7 LAB L100.1400 37-47 % Low HCT 36.7 LAB L100.1500 81-99 fL Normal MCV 96.6 LAB L100.1600 27.0-32.0 pg Normal MCH 30.8 LAB L100.1700 32-36 g/gl Low MCHC 31.9 LAB L100.1810 11.6-14.6 % High RDW CV 15.3 LAB L100.1820 35.1-43.9 fl High RDW SD 51.2 LAB L100.1900 150-450 K/mm3 Normal PLT 182 LAB L100.2000 6.2-12.0 fl Normal MPV 10.9 LAB L100.2100 47-70 % High NEUT% 79.4 LAB L100.2200 19-41 % Low LY% 6.6 LAB L100.2300 0-10 % High MONO% 11.8 LAB L100.2400 0-5 % Normal EO% 1.9 LAB L100.2500 0-1 % Normal BASO% 0.2 LAB L100.2550 0.0-0.9 % Normal IM GRAN % 0.100 Result Comment: IG% - Immature Granulocytes (promyelocytes, myelocytes and metamyelocytes) > 1% indicates that a LEFT SHIFT is Present. LAB L100.2620 2.0-7.7 X10 3/uL Normal Absolute Neut 7.2 LAB L100.2720 0.83-4.51 X10 3/ul Low Absolute Lymph 0.60 LAB L100.4500 Normal SMEAR COMMENT SCANNED Result Comment: LYMPHOPENIA NOTED Performed By: #### L100.0100 #### [facility] [address] [place], [address] BNP,B-TYPE NATRIURETIC Collected: 02/03/2018 Status: F Source: KINJAL PEPTIDE 4:00 PM [facility] REPOSITORY TYPE CODE TESTS RESULT OUT OF RANGE REFERENCE UNITS LAB L503.6620 0-100 pg/mL High B-TYPE 141.6 STONEY PEP Performed By: #### L503.6620 #### [facility] [address] [place], [address] Observed: 02/03/2018 Status: F Source: KINJAL CULTURE, BLOOD (WB) 4:00 PM [facility] REPOSITORY BC No growth in 5 days. Performed By: #### M200.1000 #### [facility] [address] [place], [address] CHEST 1 VIEW Observed: 02/03/2018 Status: F Source: KINJAL (PORTABLE) 3:54 PM [facility] REPOSITORY [facility] [address] [place] [address] Chest 1 View (Portable) MR#: [id number] Acct: [id number] Name: TAMIA PANDA Jennifer Rep #: [id number] : 1955 F 63 From: Gurwinder Canela DO PCP: Bhupendra Oliveira MD Status: REG ER Study: Chest 1 View (Portable) Date of Exam: 02/03/18 Exam# [id number] Ordering Dr: Robert Baird MD STUDY: X-RAY CHEST REASON FOR EXAM: Female, 63 years old. Shortness of breath. TECHNIQUE: Single AP portable view of the chest. COMPARISON: January 15, 2018. FINDINGS: Telemetry wires overlie the chest. The lungs are hypoexpanded. The right lung base is partially obscured by overlying soft tissues. No new mass or infiltrate. There is no demonstrated pleural abnormality. Normal size heart. Normal mediastinum and tracie. Normal visualized pulmonary arteries. There is atherosclerotic calcification of the aortic arch with tortuosity. The thoracic spine is obscured by the mediastinum. Normal visualized ribs, clavicles, and shoulders. There is no demonstrated abnormality of the visualized soft tissue structures of the upper abdomen. RAD/Chest 1 View (Portable) IMPRESSION: No acute cardiopulmonary disease or interval change. Electronically Signed: Gurwinder Canela DO at 16:50 EDT Tel [phone], Service support , CC: Bhupendra Oliveira MD; Robert Baird MD Pipe Recovery Specialist: Signed PROGRESS Observed: 02/03/2018 Status: COMPLETED Source: RUSSELL 2:42 PM [facility] REPOSITORY HNO ID: [id number] Author: Katie Rueda) Podlogar Service: (none) Author Type: Nurse Practitioner Type: Progress Notes Filed: 02/05/2018 1:06 PM Note Text: 02/03/2018 Patient presents with: Recheck: cough, fevers ,sob SUBJECTIVE: This is a 63 year old that is here today for Above Complaints. Patient was contacted by daycare manager Mandie Silvestre R.N. yesterday. Per daycare manager note she has been having increased SOB, moist productive cough, expectorating white mucous,and intermittent wheezing since her EGD on 01/31. It was recommended she come into office today for evaluation. Patient reports since Friday has had a fever, increased coughing, and SOB. During interview patient is drowsy. Blood sugar checked and found to be 168. Pulse ox on arrival was 91 % on 2L/NC, was increased to 3l/NC and pulse ox increased to 96%. Lung sounds were found to be diminished with expiratory wheezes without. Albuterol aerosol given with no improvement. Patient able to tell me where she is at, who she is and the date, and follow commands,however she is sitting in chair with head down looking at floor. She then begins to pick at objects that are not there. Dr. Oliveira in to see patient and she is able to tell us who he is. Decision was made that she should be transported via squad to ER for evaluation for mental status change. PAST MEDICAL HISTORY Diagnosis Date - Acute chronic obstructive pulmonary disease with respiratory failure ([facility]) - AF (paroxysmal atrial fibrillation) ([facility]) - Anxiety - Arthritis Seeing Dr Elliott - Cervical cancer ([facility]) hysterectomy - CHF (congestive heart failure) ([facility]) - Chronic back pain Seeing Dr. Wallace - Constipation - COPD (chronic obstructive pulmonary disease) ([facility]) - Coronary atherosclerosis of [place] coronary artery Previously seeing Dr. Sosa - DDD (degenerative disc disease), lumbar - DM type 2 (diabetes mellitus, type 2) ([facility]) Seeing Dr. Foley for podiatry - DVT (deep venous thrombosis) ([facility]) Post op INA, BSO. - Dysphagia Seeing Dr. Beaulieu - Emphysema lung ([facility]) - Essential hypertension - Functional dyspepsia - Gastroparesis 2017 mild - GERD without esophagitis - Headache - History of colon polyps 11/28/2016 - Hyperlipidemia - Hypothyroidism - Incontinence Seeing Dr. Chapman - Morbid obesity ([facility]) - Muscle weakness - Nausea - PARESH on CPAP [facility], no longer using as of 10/2017, was not compliant - PE (pulmonary thromboembolism) ([facility]) Post op INA/BSO. - Pneumonia - RLS (restless legs syndrome) - Shortness of breath - Sleep apnea using oxygen currently, not on CPAP - Unsteadiness on feet - Wheezing ALLERGIES Adhesive Tape (Rosins); Cats; Dogs; Orphenadrine; Ciprofloxacin; Keflex [Cephalexin]; Niacin; Penicillin G; Penicillins; Reglan [Metoclopramide Hcl]; Xanthines; Zofran [Ondansetron Hcl (Pf)] MEDICATIONS Current Outpatient Prescriptions: oxyCODONE (ROXICODONE) 5 mg/5 mL oral solution Take 5-10 mL by mouth every 4 hours as needed for up to 3 days. pantoprazole (PROTONIX) 40 mg/20 mL Take 20 mL by mouth twice daily before meals (0600/1600). estradiol (ESTRACE) 0.01 % (0.1 mg/gram) vaginal cream Apply pea-sized amount to perineum and 1 applicator vaginally Mon, Wed, Fri for atrophic vaginitis. COMPOUNDED PRESCRIPTION Please fit for BiPAP mask. insulin glargine (LANTUS SOLOSTAR U-100 INSULIN) 100 unit/mL (3 mL) inpn Inject 56 Units subcutaneously twice daily. Inject 56 units subcutaneously twice daily ONETOUCH ULTRA BLUE TEST STRIP test strip USE DIRECTED TO CHECK BLOOD SUGAR 4-5 TIMES DAILY ONETOUCH DELICA LANCETS 30 gauge misc USE TO CHECK BLOOD SUGAR 4-5 TIMES DALIY insulin glargine (LANTUS SOLOSTAR U-100 INSULIN) 100 unit/mL (3 mL) inpn Inject 56 units subcutaneously twice daily COMPOUNDED PRESCRIPTION OCD Titration for portable oxygen concentrator Oxygen Flow Rate between 2-6 liters. To keep oxygen saturation at or above 92%. mupirocin (BACTROBAN) 2 % ointment Apply 1 application to affected area three times daily. promethazine (PHENERGAN) 25 mg tablet Take 1 tablet by mouth every 6 hours as needed. insulin lispro (HUMALOG KWIKPEN INSULIN) 200 unit/mL (3 mL) injection Inject subcutaneously 14 units with breakfast, 22 units with lunch, and 24 units with dinner (Patient taking differently: 14 Units. Inject subcutaneously 14 units with breakfast, 22 units with lunch, and 24 units with dinner ) LYRICA 100 mg capsule TAKE 1 CAPSULE BY MOUTH THREE TIMES A DAY capsaicin (ZOSTRIX-HP) 0.075 % topical cream Apply 1 application to affected area four times daily. ULTICARE PEN NEEDLE 31 gauge x 5/16 ndle USE DIRECTED. TO INJECT INSULINS VITAMIN C 500 mg tablet TAKE 1 TABLET BY MOUTH DAILY Ferrous Gluconate (FERGON) 324 mg (38 mg iron) tablet TAKE 1 TABLET BY MOUTH DAILY WITH BREAKFAST STOOL SOFTENER 100 mg capsule TAKE 1 CAPSULE BY MOUTH DAILY CLAUDIA-KYLE 8.6 mg tab TAKE 1 TABLET BY MOUTH TWICE A DAY isosorbide mononitrate ER (IMDUR) 60 mg 24 hr tablet Take 1.5 tablets by mouth once daily. In the morning atorvastatin (LIPITOR) 40 mg tablet TAKE 1 TABLET BY MOUTH DAILY diltiazem CD (CARDIZEM CD, CARTIA XT) 180 mg 24 hr capsule TAKE 1 CAPSULE BY MOUTH EVERY MORNING levothyroxine (SYNTHROID) 100 mcg tablet TAKE 1 TABLET BY MOUTH EVERY MORNING ELIQUIS 2.5 mg tab tab(s) TAKE 1 TABLET BY MOUTH TWICE A DAY nitroglycerin sublingual (NITROQUICK) 0.4 mg SL tablet DISSOLVE 1 TAB UNDER THE TONGUE NEEDED FOR CHEST PAIN EVERY 5 MINUTES UP TO 3 TIMES. IF NO RELIEF CALL 911. metoprolol tartrate, short acting, (LOPRESSOR) 50 mg tablet Take 1 tablet by mouth twice daily. glucose 4 gram chewable tablet Take 4 tablets by mouth as needed for Low Blood Sugar. OXYGEN, HOME THERAPY, Inhale 3 L/min as instructed as directed. fluticasone (FLONASE) 50 mcg/actuation nasal spray Use 2 Sprays in each nostril once daily. metFORMIN ER (GLUCOPHAGE XR) 500 mg 24 hr tablet Take 2 tablets by mouth twice daily. DULoxetine (CYMBALTA) 60 mg capsule Take 1 capsule by mouth once daily. aspirin, enteric coated (ASPIRIN, ENTERIC COATED) 81 mg EC tablet Take 1 tablet by mouth every morning. furosemide (LASIX) 40 mg tablet Take 1 tablet by mouth twice daily. albuterol HFA (VENTOLIN HFA) 90 mcg/actuation inhaler Inhale 2 Puffs as instructed every 4 hours as needed for Wheezing/Shortness of Breath. COMPOUNDED PRESCRIPTION Evaluation for diabetic shoes and inserts Dx: E11.65, Z79.4 Incontinence Pad, Liner, Disp pads 1 Device as needed (urinary incontinence). Prevail incontinence pads. Dx: urinary incontinence. Size: small Blood Pressure Cuff - Home Use BLOOD PRESSURE CUFF FOR HOME USE. DX: LABILE BLOOD PRESSURE Blood-Glucose Meter (ONETOUCH ULTRA2) monitoring kit UAD to test blood sugar Alcohol Swabs padm UAD to clean skin before testing blood sugar and injecting insulins. sucralfate (CARAFATE) 100 mg/mL susp Take 10 mL by mouth every 6 hours. BIPAP Bilevel PAP 15/11 cmH2O with 2 LPM oxygen bleed in, mask, tubing, filters, heated humidity, lifetime supplies. Please fax 30 day compliance download to [phone]. Dx: G47.33, G47.39. DME: [facility] (Patient not taking: Reported on 01/23/2018 ) No current facility-administered medications for this visit. Medications and allergies reviewed by this provider. 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 Social History Main Topics Smoking status: Former Smoker Packs/day: 1.00 Years: 28.00 Types: Cigarettes Start date: 1978 Quit date: 09/22/2005 Smokeless tobacco: Never Used Comment: Father smoked in childhood. 2nd spouse smoked in home. Alcohol use: No Drug use: No Sexual activity: No Social History Narrative 1 year in current home. No basement, 1 parakeet. Room A/C. Electric baseboard heat. REVIEW OF SYSTEMS All other reviewed and negative other than HPI. OBJECTIVE: BP 120/68 (BP Site: Left Arm, BP Position: Sitting, BP Cuff Size: Large Adult) Pulse 76 Temp 37 ?C (98.6 ?F) Wt 98 kg (216 lb 1.9 oz) SpO2 93% BMI 39.77 kg/m? . Vital signs reviewed by this provider. APPEARANCE: Drowsy, arousal, pale. Generally ill-apperaing as compared to when she was seen by me last week HEART Irregular with normal S1 and S2, no murmurs, no gallops, no JVD appreciated. Hx of A-FIB LUNG Diminshed with scattered expiratory wheezes. Respirations are shallow and even and patients able speak in full sentences. EXTREMITIES Extremities normal, No deformities, No skin discoloration, No edema and Normal pulses bilaterally. NEURO: Alert and Oriented x3, however is exhibiting odd behavior as in reaching for objects that are not there and at times mumbling. Drowsy. Able to follow commands. Hand grasps and foot pushes are weak and equal. No facial drooping. Tongue is midline. ASSESSMENT/PLAN: 1. Altered mental status, unspecified altered mental status type - ICD9: 780.97, ICD10: R41.82 - d/t increasing drowsiness patient transported by ambulance to [facility]. Report given to Joyce SANTOS and Kinjal Floor Sanding Machine Operator - GLUCOSE, BLOOD (POC) Katie PodlogMARVIN solomon Prescription instructions reviewed with patient as applicable. Patient advised if symptoms do not improve or if symptoms worsen sooner, to contact their primary care physician. Potential red flag symptoms discussed with the patient. Reviewed appropriate action plan to take if red flag symptoms occur. Patient agreeable to treatment plan. CNOV Observed: 02/03/2018 Status: COMPLETED Source: RUSSELL 2:20 PM [facility] REPOSITORY Office Visit (FAMPWS) TAMIA PANDA ([id number]) 1955 F Date Time Provider Department 02/03/18 2:20 PM KATIE MCKEON (LM) [facility] During your visit today, we recorded the following information about you: Temperature Pulse Blood pressure Weight 98.6 degrees 76/minute 120/68 98 kg Yessi Sanchez FIRE BOSS 02/03/2018 2:41 PM Signed Pt winded upon entering exam room. Pulse ox was obtained 93 percent on 2 liters pulse was 115. Is to be on three liters. Pt was trying to save o2 and not run out before returning home.O2 was turned up to 3 liters And pulse ox was taken again for 99 percent pulse for 78.States fever last evening with cough. States feeling worse today. Katie Mckeon APRN.CNP 02/05/2018 1:06 PM Signed 02/03/2018 Patient presents with: Recheck: cough, fevers ,sob SUBJECTIVE: This is a 63 year old that is here today for Above Complaints. Patient was contacted by daycare manager Mandie Silvestre R.N. yesterday. Per daycare manager note she has been having increased SOB, moist productive cough, expectorating white mucous,and intermittent wheezing since her EGD on 01/31. It was recommended she come into office today for evaluation. Patient reports since Friday has had a fever, increased coughing, and SOB. During interview patient is drowsy. Blood sugar checked and found to be 168. Pulse ox on arrival was 91 % on 2L/NC, was increased to 3l/NC and pulse ox increased to 96%. Lung sounds were found to be diminished with expiratory wheezes without. Albuterol aerosol given with no improvement. Patient able to tell me where she is at, who she is and the date, and follow commands,however she is sitting in chair with head down looking at floor. She then begins to pick at objects that are not there. Dr. Oliveira in to see patient and she is able to tell us who he is. Decision was made that she should be transported via squad to ER for evaluation for mental status change. PAST MEDICAL HISTORY Diagnosis Date - Acute chronic obstructive pulmonary disease with respiratory failure ([facility]) - AF (paroxysmal atrial fibrillation) ([facility]) - Anxiety - Arthritis Seeing Dr Elliott - Cervical cancer ([facility]) hysterectomy - CHF (congestive heart failure) ([facility]) - Chronic back pain Seeing Dr. Wallace - Constipation - COPD (chronic obstructive pulmonary disease) ([facility]) - Coronary atherosclerosis of port lions coronary artery Previously seeing Dr. Sosa - DDD (degenerative disc disease), lumbar - DM type 2 (diabetes mellitus, type 2) ([facility]) Seeing Dr. Foley for podiatry - DVT (deep venous thrombosis) ([facility]) Post op INA, BSO. - Dysphagia Seeing Dr. Beaulieu - Emphysema lung ([facility]) - Essential hypertension - Functional dyspepsia - Gastroparesis 2017 mild - GERD without esophagitis - Headache - History of colon polyps 11/28/2016 - Hyperlipidemia - Hypothyroidism - Incontinence Seeing Dr. Chapman - Morbid obesity ([facility]) - Muscle weakness - Nausea - PARESH on CPAP [facility], no longer using as of 10/2017, was not compliant - PE (pulmonary thromboembolism) ([facility]) Post op INA/BSO. - Pneumonia - RLS (restless legs syndrome) - Shortness of breath - Sleep apnea using oxygen currently, not on CPAP - Unsteadiness on feet - Wheezing ALLERGIES Adhesive Tape (Rosins); Cats; Dogs; Orphenadrine; Ciprofloxacin; Keflex [Cephalexin]; Niacin; Penicillin G; Penicillins; Reglan [Metoclopramide Hcl]; Xanthines; Zofran [Ondansetron Hcl (Pf)] MEDICATIONS Current Outpatient Prescriptions: oxyCODONE (ROXICODONE) 5 mg/5 mL oral solution Take 5-10 mL by mouth every 4 hours as needed for up to 3 days. pantoprazole (PROTONIX) 40 mg/20 mL Take 20 mL by mouth twice daily before meals (0600/1600). estradiol (ESTRACE) 0.01 % (0.1 mg/gram) vaginal cream Apply pea-sized amount to perineum and 1 applicator vaginally Mon, Wed, Fri for atrophic vaginitis. COMPOUNDED PRESCRIPTION Please fit for BiPAP mask. insulin glargine (LANTUS SOLOSTAR U-100 INSULIN) 100 unit/mL (3 mL) inpn Inject 56 Units subcutaneously twice daily. Inject 56 units subcutaneously twice daily ONETOUCH ULTRA BLUE TEST STRIP test strip USE DIRECTED TO CHECK BLOOD SUGAR 4-5 TIMES DAILY ONETOUCH DELICA LANCETS 30 gauge misc USE TO CHECK BLOOD SUGAR 4-5 TIMES DALIY insulin glargine (LANTUS SOLOSTAR U-100 INSULIN) 100 unit/mL (3 mL) inpn Inject 56 units subcutaneously twice daily COMPOUNDED PRESCRIPTION OCD Titration for portable oxygen concentrator Oxygen Flow Rate between 2-6 liters. To keep oxygen saturation at or above 92%. mupirocin (BACTROBAN) 2 % ointment Apply 1 application to affected area three times daily. promethazine (PHENERGAN) 25 mg tablet Take 1 tablet by mouth every 6 hours as needed. insulin lispro (HUMALOG KWIKPEN INSULIN) 200 unit/mL (3 mL) injection Inject subcutaneously 14 units with breakfast, 22 units with lunch, and 24 units with dinner (Patient taking differently: 14 Units. Inject subcutaneously 14 units with breakfast, 22 units with lunch, and 24 units with dinner ) LYRICA 100 mg capsule TAKE 1 CAPSULE BY MOUTH THREE TIMES A DAY capsaicin (ZOSTRIX-HP) 0.075 % topical cream Apply 1 application to affected area four times daily. ULTICARE PEN NEEDLE 31 gauge x 5/16 ndle USE DIRECTED. TO INJECT INSULINS VITAMIN C 500 mg tablet TAKE 1 TABLET BY MOUTH DAILY Ferrous Gluconate (FERGON) 324 mg (38 mg iron) tablet TAKE 1 TABLET BY MOUTH DAILY WITH BREAKFAST STOOL SOFTENER 100 mg capsule TAKE 1 CAPSULE BY MOUTH DAILY CLAUDIA-KYLE 8.6 mg tab TAKE 1 TABLET BY MOUTH TWICE A DAY isosorbide mononitrate ER (IMDUR) 60 mg 24 hr tablet Take 1.5 tablets by mouth once daily. In the morning atorvastatin (LIPITOR) 40 mg tablet TAKE 1 TABLET BY MOUTH DAILY diltiazem CD (CARDIZEM CD, CARTIA XT) 180 mg 24 hr capsule TAKE 1 CAPSULE BY MOUTH EVERY MORNING levothyroxine (SYNTHROID) 100 mcg tablet TAKE 1 TABLET BY MOUTH EVERY MORNING ELIQUIS 2.5 mg tab tab(s) TAKE 1 TABLET BY MOUTH TWICE A DAY nitroglycerin sublingual (NITROQUICK) 0.4 mg SL tablet DISSOLVE 1 TAB UNDER THE TONGUE NEEDED FOR CHEST PAIN EVERY 5 MINUTES UP TO 3 TIMES. IF NO RELIEF CALL 911. metoprolol tartrate, short acting, (LOPRESSOR) 50 mg tablet Take 1 tablet by mouth twice daily. glucose 4 gram chewable tablet Take 4 tablets by mouth as needed for Low Blood Sugar. OXYGEN, HOME THERAPY, Inhale 3 L/min as instructed as directed. fluticasone (FLONASE) 50 mcg/actuation nasal spray Use 2 Sprays in each nostril once daily. metFORMIN ER (GLUCOPHAGE XR) 500 mg 24 hr tablet Take 2 tablets by mouth twice daily. DULoxetine (CYMBALTA) 60 mg capsule Take 1 capsule by mouth once daily. aspirin, enteric coated (ASPIRIN, ENTERIC COATED) 81 mg EC tablet Take 1 tablet by mouth every morning. furosemide (LASIX) 40 mg tablet Take 1 tablet by mouth twice daily. albuterol HFA (VENTOLIN HFA) 90 mcg/actuation inhaler Inhale 2 Puffs as instructed every 4 hours as needed for Wheezing/Shortness of Breath. COMPOUNDED PRESCRIPTION Evaluation for diabetic shoes and inserts Dx: E11.65, Z79.4 Incontinence Pad, Liner, Disp pads 1 Device as needed (urinary incontinence). Prevail incontinence pads. Dx: urinary incontinence. Size: small Blood Pressure Cuff - Home Use BLOOD PRESSURE CUFF FOR HOME USE. DX: LABILE BLOOD PRESSURE Blood-Glucose Meter (ONETOUCH ULTRA2) monitoring kit UAD to test blood sugar Alcohol Swabs padm UAD to clean skin before testing blood sugar and injecting insulins. sucralfate (CARAFATE) 100 mg/mL susp Take 10 mL by mouth every 6 hours. BIPAP Bilevel PAP 15/11 cmH2O with 2 LPM oxygen bleed in, mask, tubing, filters, heated humidity, lifetime supplies. Please fax 30 day compliance download to [phone]. Dx: G47.33, G47.39. [facility] (Patient not taking: Reported on 01/23/2018 ) No current facility-administered medications for this visit. Medications and allergies reviewed by this provider. 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 Social History Main Topics Smoking status: Former Smoker Packs/day: 1.00 Years: 28.00 Types: Cigarettes Start date: 1978 Quit date: 09/22/2005 Smokeless tobacco: Never Used Comment: Father smoked in childhood. 2nd spouse smoked in home. Alcohol use: No Drug use: No Sexual activity: No Social History Narrative 1 year in current home. No basement, 1 parakeet. Room A/C. Electric baseboard heat. REVIEW OF SYSTEMS All other reviewed and negative other than HPI. OBJECTIVE: BP 120/68 (BP Site: Left Arm, BP Position: Sitting, BP Cuff Size: Large Adult) Pulse 76 Temp 37 ?C (98.6 ?F) Wt 98 kg (216 lb 1.9 oz) SpO2 93% BMI 39.77 kg/m? . Vital signs reviewed by this provider. APPEARANCE: Drowsy, arousal, pale. Generally ill-apperaing as compared to when she was seen by me last week HEART Irregular with normal S1 and S2, no murmurs, no gallops, no JVD appreciated. Hx of A-FIB LUNG Diminshed with scattered expiratory wheezes. Respirations are shallow and even and patients able speak in full sentences. EXTREMITIES Extremities normal, No deformities, No skin discoloration, No edema and Normal pulses bilaterally. NEURO: Alert and Oriented x3, however is exhibiting odd behavior as in reaching for objects that are not there and at times mumbling. Drowsy. Able to follow commands. Hand grasps and foot pushes are weak and equal. No facial drooping. Tongue is midline. ASSESSMENT/PLAN: 1. Altered mental status, unspecified altered mental status type - ICD9: 780.97, ICD10: R41.82 - d/t increasing drowsiness patient transported by ambulance to [facility]. Report given to Joyce SANTOS and [facility] Floor Sanding Machine Operator - GLUCOSE, BLOOD (POC) Katie Mckeon APRN.DATA INPUT CLERK Prescription instructions reviewed with patient as applicable. Patient advised if symptoms do not improve or if symptoms worsen sooner, to contact their primary care physician. Potential red flag symptoms discussed with the patient. Reviewed appropriate action plan to take if red flag symptoms occur. Patient agreeable to treatment plan. Yessi Sanchez LPN 02/03/2018 3:59 PM Signed yoga teacher wanting 911 called to transport pt to er. For change in mental status confusion. 911 was called pt's information given along with our address and doctor and floor Pt was on. help desk rep was alerted ambulance was called. Ems arrived and spoke with nurse practitioner and transported to [facility]. Referring Provider: SELF [[id number]] Allergies As of Date: 02/03/2018 Noted Allergy Reaction ADHESIVE TAPE (ROSINS) 04/04/2015 5 - Intolerance Comments: Surgical tape leaves rash Irritates skin badly and blisters along with medical tape CATS 04/10/2016 14 - Other: See Comments Comments: Congested and itchy, difficulty breathing DOGS 04/10/2016 14 - Other: See Comments Comments: Congestion, sneezing, and difficulty breathing ORPHENADRINE 04/10/2016 16 - Unknown CIPROFLOXACIN 12/11/2011 14 - Other: See Comments Comments: Red, hot, itchy rash KEFLEX (CEPHALEXIN) 07/10/2016 4 - Hives NIACIN 04/04/2015 16 - Unknown Comments: Pt states its niacin its niaspan PENICILLIN G 10/18/2004 PENICILLINS 04/04/2015 16 - Unknown REGLAN (METOCLOPRAMIDE HCL) 03/04/2017 14 - Other: See Comments Comments: Unable to sleep XANTHINES 10/18/2004 16 - Unknown ZOFRAN (ONDANSETRON HCL (PF)) 02/03/2018 9 - Itching Date Reviewed: 02/03/2018 Reviewed by: Yessi Sanchez LPN - Fully Assessed Reason for Visit: Recheck [92] Cmt: cough, fevers ,sob Primary Visit Diagnosis:Altered mental status, unspecified altered mental status type [R41.82] Order(s):GLUCOSE, BLOOD (POC) [[id number]] Order #: [id number]. #:[id number] Prescriptions as of 02/03/2018 Sig: OXYCODONE 5 MG/5 ML ORAL SOLU* Take 5-10 mL by mouth every 4* PANTOPRAZOLE ORAL LIQUID 40 M* Take 20 mL by mouth twice cady* ESTRADIOL 0.01% (0.1 MG/GRAM)* Apply pea-sized amount to per* COMPOUNDED PRESCRIPTION Please fit for BiPAP mask. INSULIN GLARGINE (U-100) 100 * Inject 56 Units subcutaneousl* ONETOUCH ULTRA BLUE TEST STRIP USE DIRECTED TO CHECK BLOO* ONETOUCH DELICA LANCETS 30 GA* USE TO CHECK BLOOD SUGAR 4-5 * INSULIN GLARGINE (U-100) 100 * Inject 56 units subcutaneousl* COMPOUNDED PRESCRIPTION OCD Titration for portable ox* MUPIROCIN 2 % TOPICAL OINTMENT Apply 1 application to affect* PROMETHAZINE 25 MG TABLET Take 1 tablet by mouth every * INSULIN LISPRO (U-200) 200 UN* Inject subcutaneously 14 unit* Patient taking differently: 14 Units. Inject subcutaneous* LYRICA 100 MG CAPSULE TAKE 1 CAPSULE BY MOUTH THREE* CAPSAICIN 0.075 % TOPICAL CRE* Apply 1 application to affect* ULTICARE PEN NEEDLE 31 GAUGE * USE DIRECTED. TO INJECT IN* VITAMIN C 500 MG TABLET TAKE 1 TABLET BY MOUTH DAILY FERROUS GLUCONATE 324 MG (38 * TAKE 1 TABLET BY MOUTH DAILY * STOOL SOFTENER 100 MG CAPSULE TAKE 1 CAPSULE BY MOUTH DAILY CLAUDIA-KYLE 8.6 MG TABLET TAKE 1 TABLET BY MOUTH TWICE * ISOSORBIDE MONONITRATE ER 60 * Take 1.5 tablets by mouth onc* ATORVASTATIN 40 MG TABLET TAKE 1 TABLET BY MOUTH DAILY DILTIAZEM SR 180 MG 24 HR CAP TAKE 1 CAPSULE BY MOUTH EVERY* LEVOTHYROXINE 100 MCG TABLET TAKE 1 TABLET BY MOUTH EVERY * ELIQUIS 2.5 MG TABLET TAKE 1 TABLET BY MOUTH TWICE * NITROGLYCERIN 0.4 MG SUBLINGU* DISSOLVE 1 TAB UNDER THE TONG* METOPROLOL TARTRATE 50 MG TAB* Take 1 tablet by mouth twice * GLUCOSE 4 GRAM CHEWABLE TABLET Take 4 tablets by mouth as ne* OXYGEN (HOME THERAPY) Inhale 3 L/min as instructed * FLUTICASONE 50 MCG/ACTUATION * Use 2 Sprays in each nostril * METFORMIN ER 500 MG TABLET,EX* Take 2 tablets by mouth twice* DULOXETINE 60 MG CAPSULE,MARIA EUGENIA* Take 1 capsule by mouth once * ASPIRIN 81 MG TABLET,DELAYED * Take 1 tablet by mouth every * FUROSEMIDE 40 MG TABLET Take 1 tablet by mouth twice * ALBUTEROL SULFATE HFA 90 MCG/* Inhale 2 Puffs as instructed * COMPOUNDED PRESCRIPTION Evaluation for diabetic shoes* INCONTINENCE PAD, LINER, DISP* 1 Device as needed (urinary i* COMPOUNDED PRESCRIPTION BLOOD PRESSURE CUFF FOR HOME * BLOOD-GLUCOSE METER KIT UAD to test blood sugar ALCOHOL SWABS UAD to clean skin before test* SUCRALFATE 100 MG/ML ORAL GISELLE* Take 10 mL by mouth every 6 h* BIPAP Bilevel PAP 15/11 cmH2O with * Patient not taking: Reported on 01/23/2018 Problem List As Of Date 02/03/2018 Noted Resolved SUBJECTIVE TINNITUS [H93.19] INVALID FOR* PARESH treated with BiPAP [G47.33] INVALID FOR* Hyperlipidemia [E78.5] INVALID FOR* Coronary disease [I25.10] INVALID FOR* Diabetes mellitus, type II ([facility]) [E11.9] INVALID FOR* Morbid obesity ([facility]) [E66.01] Hypothyroidism [E03.9] Anxiety [F41.9] Sleep apnea [G47.30] 02/14/2017 Essential hypertension [I10] Coronary artery disease of port lions artery of [place]* AF (paroxysmal atrial fibrillation) ([facility]) [I48.* COPD (chronic obstructive pulmonary disease) (H* GERD without esophagitis [K21.9] Dysphagia [R13.10] Constipation [K59.00] DM type 2 (diabetes mellitus, type 2) ([facility]) [E1* 02/14/2017 Shortness of breath [R06.02] 02/14/2017 Arthritis [M19.90] More... CHF (congestive heart failure) ([facility]) [I50.9] BPPV (benign paroxysmal positional vertigo) [H8*INVALID FOR* RLS (restless legs syndrome) [G25.81] INVALID FOR* Iron deficiency concern: RE RLS [E61.1] INVALID FOR* Tubular adenoma [D36.9] INVALID FOR* Incontinence [R32] More... Gastroparesis [K31.84] INVALID FOR* Pre-op testing [Z01.818] INVALID FOR* More... Hypercapnia [R06.89] INVALID FOR* S/P coronary artery stent placement [Z95.5] INVALID FOR* Stage 3 chronic kidney disease [N18.3] INVALID FOR* Depression [F32.9] INVALID FOR* Visit Notes: >> Yessi Sanchez LPN FriFebruary 03, 2018 2:37 PM Status: Signed Pt winded upon entering exam room. Pulse ox was obtained 93 percent on 2 liters pulse was 115. Is to be on three liters. Pt was trying to save o2 and not run out before returning home.O2 was turned up to 3 liters And pulse ox was taken again for 99 percent pulse for 78.States fever last evening with cough. States feeling worse today. 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 For change in mental status confusion. 911 was called pt's information given along with our address and doctor and floor Pt was on. help desk rep was alerted ambulance was called. Ems arrived and spoke with nurse practitioner and transported to [facility]. Encounter Status:Closed by KATIE MCKEON CNP on 02/05/18 PROGRESS Observed: 02/03/2018 Status: COMPLETED Source: RUSSELL 9:12 AM [facility] REPOSITORY HNO ID: [id number] Author: Jessica Lobo (Aroldo) Service: (none) Author Type: Marriage Counselor Minister Type: Progress Notes Filed: 02/03/2018 9:26 AM Note Text: Aroldo called [facility] and they advised that SW has to go through [facility] for transportation. [facility] strictly maintains 2 days in advance for transportation Aroldo assisted patient with setting ride for February 05 @ 11:20. Aroldo let patient know appt day and time. Patient son called Sw back and is stating that patient needs to come in today. He will locate ride for patient. Aroldo spoke with patient and let her know that she will see what can be done about appt today. Patient is now set up with 02/03/18 appt @2:20 with ARTURO Wilson. Aroldo called patient and spoke with both her and her son and patient will be in this afternoon 02/03 @2:20 to see ARTURO Wilson. CNPTOUTREACH Observed: 02/03/2018 Status: COMPLETED Source: RUSSELL 12:00 AM [facility] REPOSITORY Patient Outreach (FAMPWS) TAMIA PANDA ([id number]) 1955 F Date Time Provider Department 02/03/18 SAAD SILVESTRE (RN) FAMPWS During your visit today, we recorded the following information about you: Saad Silvestre RN 02/03/2018 4:58 PM Signed PRIMARY CARE COORDINATION IN OFFICE VISIT WITH PCP Patient has been identified by name and date of . PCP Assessment/Plan: Reviewed PCP plan with patient using Teach Back Pt very drowsy and slurring words, oriented to person and people in room but unable to communicate clearly PCC Plan of Care: PCC Interventions: Discussed patient with ARTURO Wilson and pt has had multiple ER visits due to confusion/slurred speech. Testing has been negative. Last ER visit felt episodes could be due to pt not wearing BIPAP and oxygen issues with PARESH Next Office Visit: 02/11/2018 Plan For Next Call: Next week Saad Silvestre RN February 03, 2018 Allergies As of Date: 02/03/2018 Noted Allergy Reaction ADHESIVE TAPE (ROSINS) 04/04/2015 5 - Intolerance Comments: Surgical tape leaves rash Irritates skin badly and blisters along with medical tape CATS 04/10/2016 14 - Other: See Comments Comments: Congested and itchy, difficulty breathing DOGS 04/10/2016 14 - Other: See Comments Comments: Congestion, sneezing, and difficulty breathing ORPHENADRINE 04/10/2016 16 - Unknown CIPROFLOXACIN 12/11/2011 14 - Other: See Comments Comments: Red, hot, itchy rash KEFLEX (CEPHALEXIN) 07/10/2016 4 - Hives NIACIN 04/04/2015 16 - Unknown Comments: Pt states its niacin its niaspan PENICILLIN G 10/18/2004 PENICILLINS 04/04/2015 16 - Unknown REGLAN (METOCLOPRAMIDE HCL) 03/04/2017 14 - Other: See Comments Comments: Unable to sleep XANTHINES 10/18/2004 16 - Unknown ZOFRAN (ONDANSETRON HCL (PF)) 02/03/2018 9 - Itching Date Reviewed: 02/03/2018 Reviewed by: Yessi Sanchez LPN - Fully Assessed Reason for Visit: Glove Cuffer-In Office Visit [[id number]] Prescriptions as of 02/03/2018 Sig: OXYCODONE 5 MG/5 ML ORAL SOLU* Take 5-10 mL by mouth every 4* SUCRALFATE 100 MG/ML ORAL GISELLE* Take 10 mL by mouth every 6 h* PANTOPRAZOLE ORAL LIQUID 40 M* Take 20 mL by mouth twice cady* ESTRADIOL 0.01% (0.1 MG/GRAM)* Apply pea-sized amount to per* COMPOUNDED PRESCRIPTION Please fit for BiPAP mask. INSULIN GLARGINE (U-100) 100 * Inject 56 Units subcutaneousl* ONETOUCH ULTRA BLUE TEST STRIP USE DIRECTED TO CHECK BLOO* ONETOUCH DELICA LANCETS 30 GA* USE TO CHECK BLOOD SUGAR 4-5 * INSULIN GLARGINE (U-100) 100 * Inject 56 units subcutaneousl* BIPAP Bilevel PAP 15/11 cmH2O with * Patient not taking: Reported on 01/23/2018 COMPOUNDED PRESCRIPTION OCD Titration for portable ox* MUPIROCIN 2 % TOPICAL OINTMENT Apply 1 application to affect* PROMETHAZINE 25 MG TABLET Take 1 tablet by mouth every * INSULIN LISPRO (U-200) 200 UN* Inject subcutaneously 14 unit* Patient taking differently: 14 Units. Inject subcutaneous* LYRICA 100 MG CAPSULE TAKE 1 CAPSULE BY MOUTH THREE* CAPSAICIN 0.075 % TOPICAL CRE* Apply 1 application to affect* ULTICARE PEN NEEDLE 31 GAUGE * USE DIRECTED. TO INJECT IN* VITAMIN C 500 MG TABLET TAKE 1 TABLET BY MOUTH DAILY FERROUS GLUCONATE 324 MG (38 * TAKE 1 TABLET BY MOUTH DAILY * STOOL SOFTENER 100 MG CAPSULE TAKE 1 CAPSULE BY MOUTH DAILY CLAUDIA-KYLE 8.6 MG TABLET TAKE 1 TABLET BY MOUTH TWICE * ISOSORBIDE MONONITRATE ER 60 * Take 1.5 tablets by mouth onc* ATORVASTATIN 40 MG TABLET TAKE 1 TABLET BY MOUTH DAILY DILTIAZEM SR 180 MG 24 HR CAP TAKE 1 CAPSULE BY MOUTH EVERY* LEVOTHYROXINE 100 MCG TABLET TAKE 1 TABLET BY MOUTH EVERY * ELIQUIS 2.5 MG TABLET TAKE 1 TABLET BY MOUTH TWICE * NITROGLYCERIN 0.4 MG SUBLINGU* DISSOLVE 1 TAB UNDER THE TONG* METOPROLOL TARTRATE 50 MG TAB* Take 1 tablet by mouth twice * GLUCOSE 4 GRAM CHEWABLE TABLET Take 4 tablets by mouth as ne* OXYGEN (HOME THERAPY) Inhale 3 L/min as instructed * FLUTICASONE 50 MCG/ACTUATION * Use 2 Sprays in each nostril * METFORMIN ER 500 MG TABLET,EX* Take 2 tablets by mouth twice* DULOXETINE 60 MG CAPSULE,MARIA EUGENIA* Take 1 capsule by mouth once * ASPIRIN 81 MG TABLET,DELAYED * Take 1 tablet by mouth every * FUROSEMIDE 40 MG TABLET Take 1 tablet by mouth twice * ALBUTEROL SULFATE HFA 90 MCG/* Inhale 2 Puffs as instructed * COMPOUNDED PRESCRIPTION Evaluation for diabetic shoes* INCONTINENCE PAD, LINER, DISP* 1 Device as needed (urinary i* COMPOUNDED PRESCRIPTION BLOOD PRESSURE CUFF FOR HOME * BLOOD-GLUCOSE METER KIT UAD to test blood sugar ALCOHOL SWABS UAD to clean skin before test* Problem List As Of Date 02/03/2018 Noted Resolved SUBJECTIVE TINNITUS [H93.19] INVALID FOR* PARESH treated with BiPAP [G47.33] INVALID FOR* Hyperlipidemia [E78.5] INVALID FOR* Coronary disease [I25.10] INVALID FOR* Diabetes mellitus, type II ([facility]) [E11.9] INVALID FOR* Morbid obesity ([facility]) [E66.01] Hypothyroidism [E03.9] Anxiety [F41.9] Sleep apnea [G47.30] 02/14/2017 Essential hypertension [I10] Coronary artery disease of port lions artery of stoney* AF (paroxysmal atrial fibrillation) ([facility]) [I48.* COPD (chronic obstructive pulmonary disease) (H* GERD without esophagitis [K21.9] Dysphagia [R13.10] Constipation [K59.00] DM type 2 (diabetes mellitus, type 2) ([facility]) [E1* 02/14/2017 Shortness of breath [R06.02] 02/14/2017 Arthritis [M19.90] More... CHF (congestive heart failure) ([facility]) [I50.9] BPPV (benign paroxysmal positional vertigo) [H8*INVALID FOR* RLS (restless legs syndrome) [G25.81] INVALID FOR* Iron deficiency concern: RE RLS [E61.1] INVALID FOR* Tubular adenoma [D36.9] INVALID FOR* Incontinence [R32] More... Gastroparesis [K31.84] INVALID FOR* Pre-op testing [Z01.818] INVALID FOR* More... Hypercapnia [R06.89] INVALID FOR* S/P coronary artery stent placement [Z95.5] INVALID FOR* Stage 3 chronic kidney disease [N18.3] INVALID FOR* Depression [F32.9] INVALID FOR* Encounter Status:Closed by SAAD SILVESTRE on 02/03/18 PROGRESS Observed: 02/02/2018 Status: COMPLETED Source: RUSSELL 4:57 PM [facility] REPOSITORY HNO ID: [id number] Author: Saad Silvestre (Rn) Service: (none) Author Type: Registered Nurse Type: Progress Notes Filed: 02/02/2018 5:00 PM Note Text: TC to patient, instructed to wear oxygen, use albuterol inhaler every 4 hours when she is wheezing and if symptoms worsen she is to go to ER. Informed SW is going to call in AM to see if she can get pt a ride into [place]. If she can we will make pt appt but if sx worsen she's to go to ER, verbalized understanding and agreement. Saad Silvestre RN February 02, 2018 5:00 PM PROGRESS Observed: 02/02/2018 Status: COMPLETED Source: RUSSELL 4:53 PM [facility] REPOSITORY HNO ID: [id number] Author: Nanda Oliveira) Service: (none) Author Type: Physician Type: Progress Notes Filed: 02/02/2018 4:53 PM Note Text: Reviewed and agree with need for appointment. Continue oxygen at home and use albuterol inhaler every 4 hours for wheezing. If worsening overnight should be seen in the ED. PROGRESS Observed: 02/02/2018 Status: COMPLETED Source: RUSSELL 4:28 PM [facility] REPOSITORY HNO ID: [id number] Author: Saad Silvestre (Rn) Service: (none) Author Type: Registered Nurse Type: Progress Notes Filed: 02/02/2018 4:35 PM Note Text: PRIMARY CARE COORDINATION FOLLOW-UP NOTE Provider Action/FYI Pt had EGD and per oral pyloromyotomy on 01/31 Since night of procedure noted increased SOB, moist productive cough, expectorating white mucous and intermittent wheezing. Encouraged pt to come in for appointment, states she doesn't have a ride. Called SW who will call about transportation tomorrow AM On liquid diet No NANDV but intermittent bloating, no pain BS today: 111 AM, 178 noon and 170 4PM Patient identified by name and date of . YES Spoke to patient Cleaning Supervisor plan for next outreach: Will follow up tomorrow Signature Saad Silvestre RN February 02, 2018 LMTOANA Observed: 02/02/2018 Status: COMPLETED Source: RUSSELL 12:00 AM [facility] REPOSITORY Patient Outreach (FAMPWS) TAMIA PANDA ([id number]) 1955 F Date Time Provider Department 02/02/18 SAAD SILVESTRE (RN) [facility] During your visit today, we recorded the following information about you: Saad Silvestre RN 02/02/2018 4:35 PM Addendum PRIMARY CARE COORDINATION FOLLOW-UP NOTE Provider Action/FYI Pt had EGD and per oral pyloromyotomy on 01/31 Since night of procedure noted increased SOB, moist productive cough, expectorating white mucous and intermittent wheezing. Encouraged pt to come in for appointment, states she doesn't have a ride. Called SW who will call about transportation tomorrow AM On liquid diet No NANDV but intermittent bloating, no pain BS today: 111 AM, 178 noon and 170 4PM Patient identified by name and date of . YES Spoke to patient Cleaning Supervisor plan for next outreach: Will follow up tomorrow Signature Saad Silvestre RN February 02, 2018 Nanda Oliveira MD 02/02/2018 4:53 PM Signed Reviewed and agree with need for appointment. Continue oxygen at home and use albuterol inhaler every 4 hours for wheezing. If worsening overnight should be seen in the ED. Saad Silvestre RN 02/02/2018 5:00 PM Signed TC to patient, instructed to wear oxygen, use albuterol inhaler every 4 hours when she is wheezing and if symptoms worsen she is to go to ER. Informed SW is going to call in AM to see if she can get pt a ride into [place]. If she can we will make pt appt but if sx worsen she's to go to ER, verbalized understanding and agreement. Saad Silvestre RN February 02, 2018 5:00 PM JENAE Norwood 02/03/2018 9:26 AM Signed Aroldo called [place] and they advised that SW has to go through [facility] for transportation. [facility] strictly maintains 2 days in advance for transportation Aroldo assisted patient with setting ride for February 05 @ 11:20. Sw let patient know appt day and time. Patient son called Sw back and is stating that patient needs to come in today. He will locate ride for patient. Aroldo spoke with patient and let her know that she will see what can be done about appt today. Patient is now set up with 02/03/18 appt @2:20 with ARTURO Wilson. Aroldo called patient and spoke with both her and her son and patient will be in this afternoon 02/03 @2:20 to see ARTURO Wilson. JENAE Norwood 02/04/2018 2:39 PM Signed Arolod called [facility] to cancel transportation to [facility] appt 02/05/18. MTM cancelled patient transportation. Allergies As of Date: 02/02/2018 Noted Allergy Reaction ADHESIVE TAPE (ROSINS) 04/04/2015 5 - Intolerance Comments: Surgical tape leaves rash Irritates skin badly and blisters along with medical tape CATS 04/10/2016 14 - Other: See Comments Comments: Congested and itchy, difficulty breathing DOGS 04/10/2016 14 - Other: See Comments Comments: Congestion, sneezing, and difficulty breathing ORPHENADRINE 04/10/2016 16 - Unknown CIPROFLOXACIN 12/11/2011 14 - Other: See Comments Comments: Red, hot, itchy rash KEFLEX (CEPHALEXIN) 07/10/2016 4 - Hives NIACIN 04/04/2015 16 - Unknown Comments: Pt states its niacin its niaspan PENICILLIN G 10/18/2004 PENICILLINS 04/04/2015 16 - Unknown REGLAN (METOCLOPRAMIDE HCL) 03/04/2017 14 - Other: See Comments Comments: Unable to sleep XANTHINES 10/18/2004 16 - Unknown Date Reviewed: 01/31/2018 Reviewed by: Brenna (Rn) NINA La - Fully Assessed Reason for Visit: Glove Cuffer Chronic Care [8503] Prescriptions as of 02/02/2018 Sig: OXYCODONE 5 MG/5 ML ORAL SOLU* Take 5-10 mL by mouth every 4* SUCRALFATE 100 MG/ML ORAL GISELLE* Take 10 mL by mouth every 6 h* PANTOPRAZOLE ORAL LIQUID 40 M* Take 20 mL by mouth twice cady* ESTRADIOL 0.01% (0.1 MG/GRAM)* Apply pea-sized amount to per* COMPOUNDED PRESCRIPTION Please fit for BiPAP mask. INSULIN GLARGINE (U-100) 100 * Inject 56 Units subcutaneousl* ONETOUCH ULTRA BLUE TEST STRIP USE DIRECTED TO CHECK BLOO* ONETOUCH DELICA LANCETS 30 GA* USE TO CHECK BLOOD SUGAR 4-5 * INSULIN GLARGINE (U-100) 100 * Inject 56 units subcutaneousl* BIPAP Bilevel PAP 15/11 cmH2O with * Patient not taking: Reported on 01/23/2018 COMPOUNDED PRESCRIPTION OCD Titration for portable ox* MUPIROCIN 2 % TOPICAL OINTMENT Apply 1 application to affect* PROMETHAZINE 25 MG TABLET Take 1 tablet by mouth every * INSULIN LISPRO (U-200) 200 UN* Inject subcutaneously 14 unit* Patient taking differently: 14 Units. Inject subcutaneous* LYRICA 100 MG CAPSULE TAKE 1 CAPSULE BY MOUTH THREE* CAPSAICIN 0.075 % TOPICAL CRE* Apply 1 application to affect* ULTICARE PEN NEEDLE 31 GAUGE * USE DIRECTED. TO INJECT IN* VITAMIN C 500 MG TABLET TAKE 1 TABLET BY MOUTH DAILY FERROUS GLUCONATE 324 MG (38 * TAKE 1 TABLET BY MOUTH DAILY * STOOL SOFTENER 100 MG CAPSULE TAKE 1 CAPSULE BY MOUTH DAILY CLAUDIA-KYLE 8.6 MG TABLET TAKE 1 TABLET BY MOUTH TWICE * ISOSORBIDE MONONITRATE ER 60 * Take 1.5 tablets by mouth onc* ATORVASTATIN 40 MG TABLET TAKE 1 TABLET BY MOUTH DAILY DILTIAZEM SR 180 MG 24 HR CAP TAKE 1 CAPSULE BY MOUTH EVERY* LEVOTHYROXINE 100 MCG TABLET TAKE 1 TABLET BY MOUTH EVERY * ELIQUIS 2.5 MG TABLET TAKE 1 TABLET BY MOUTH TWICE * NITROGLYCERIN 0.4 MG SUBLINGU* DISSOLVE 1 TAB UNDER THE TONG* METOPROLOL TARTRATE 50 MG TAB* Take 1 tablet by mouth twice * GLUCOSE 4 GRAM CHEWABLE TABLET Take 4 tablets by mouth as ne* OXYGEN (HOME THERAPY) Inhale 3 L/min as instructed * FLUTICASONE 50 MCG/ACTUATION * Use 2 Sprays in each nostril * METFORMIN ER 500 MG TABLET,EX* Take 2 tablets by mouth twice* DULOXETINE 60 MG CAPSULE,MARIA EUGENIA* Take 1 capsule by mouth once * ASPIRIN 81 MG TABLET,DELAYED * Take 1 tablet by mouth every * FUROSEMIDE 40 MG TABLET Take 1 tablet by mouth twice * ALBUTEROL SULFATE HFA 90 MCG/* Inhale 2 Puffs as instructed * COMPOUNDED PRESCRIPTION Evaluation for diabetic shoes* INCONTINENCE PAD, LINER, DISP* 1 Device as needed (urinary i* COMPOUNDED PRESCRIPTION BLOOD PRESSURE CUFF FOR HOME * BLOOD-GLUCOSE METER KIT UAD to test blood sugar ALCOHOL SWABS UAD to clean skin before test* Problem List As Of Date 02/02/2018 Noted Resolved SUBJECTIVE TINNITUS [H93.19] INVALID FOR* PARESH treated with BiPAP [G47.33] INVALID FOR* Hyperlipidemia [E78.5] INVALID FOR* Coronary disease [I25.10] INVALID FOR* Diabetes mellitus, type II ([facility]) [E11.9] INVALID FOR* Morbid obesity ([facility]) [E66.01] Hypothyroidism [E03.9] Anxiety [F41.9] Sleep apnea [G47.30] 02/14/2017 Essential hypertension [I10] Coronary artery disease of port lions artery of stoney* AF (paroxysmal atrial fibrillation) ([facility]) [I48.* COPD (chronic obstructive pulmonary disease) (H* GERD without esophagitis [K21.9] Dysphagia [R13.10] Constipation [K59.00] DM type 2 (diabetes mellitus, type 2) ([facility]) [E1* 02/14/2017 Shortness of breath [R06.02] 02/14/2017 Arthritis [M19.90] More... CHF (congestive heart failure) ([facility]) [I50.9] BPPV (benign paroxysmal positional vertigo) [H8*INVALID FOR* RLS (restless legs syndrome) [G25.81] INVALID FOR* Iron deficiency concern: RE RLS [E61.1] INVALID FOR* Tubular adenoma [D36.9] INVALID FOR* Incontinence [R32] More... Gastroparesis [K31.84] INVALID FOR* Pre-op testing [Z01.818] INVALID FOR* More... Hypercapnia [R06.89] INVALID FOR* S/P coronary artery stent placement [Z95.5] INVALID FOR* Stage 3 chronic kidney disease [N18.3] INVALID FOR* Depression [F32.9] INVALID FOR* Encounter Status:Closed by SAAD SILVESTRE on 02/02/18 OPERATIVE NO Observed: 01/31/2018 Status: COMPLETED Source: RUSSELL 12:38 PM [facility] REPOSITORY HNO ID: [id number] Author: Jefferson Connolly Service: General Surgery Author Type: Physician Type: Operative Report Filed: 02/02/2018 2:46 PM Note Text: OPERATIVE/PROCEDURE REPORT LOG ID: [id number] Surgery/Procedure Date: 01/30/2018 Incision/Procedure Start Time: 8:14 PM Incision Close/Procedure End Time: 8:44 PM Surgeon(s)/Proceduralist(s) and Plant Controls Specialist(s): Surgeon(s) and Role: * Jefferson Connolly - Primary * [place] (Ladan Mark - Resident - Assisting No Additional Staff Procedure(s): Endoscopic per oral pyloromyotomy Anesthesia: General Pre-Op/Pre-Procedure Diagnosis: Medical refractory gastroparesis Post-Op/Post-Procedure Diagnosis: Medical refractory gastroparesis Operative Findings: POP successfully completed. Widely patent pylorus Operative Indication: Tamia Panda is a 63 year old female that presents with debilitating symptoms secondary to medical refractory gastroparesis. A POP was indicated. We discussed the risks, benefits, alternatives, and potential complications, and the patient agreed to proceed. Procedure Details: The patient was brought to the operating room, identified by name, medical record number, and date of . A sign-in huddle was performed by the Surgical and Anesthesia teams. The patient was then placed supine on the operating table and general endotracheal anesthesia was provided. A surgical time- out was then performed. The front-viewing endoscope was then inserted through the mouth and diagnostic EGD was done. The pylorus was identified and a bleb was raised with the injection needle about 4 cm proximal along the lesser curvature. A transverse incision was made using the TT knife. A tunnel was created with careful dissection until the pyloric sphincter was identified. The muscle fibers were then divided with the TT knife. The pylorus was inspected and appeared widely patent. The mucosotomy was then closed with sequential clips. The patient was extubated and taken to the recovery area in stable condition. Estimated Blood Loss: minimal Specimens: None Implantable Devices: None Drains: None Complications: None I performed the procedure with assistance. SIGNATURE: Jefferson Connolly MD PATIENT NAME: Tamia Panda DATE: February 02, 2018 TIME: 2:46 PM PAGER/CONTACT #: [id number] Observed: 01/31/2018 Status: COMPLETED Source: RUSSELL 8:30 AM [facility] REPOSITORY HNO ID: [id number] Author: Saba Alarcon (Lalito)MD Service: General Surgery Author Type: Resident Type: Discharge Summaries Filed: 01/31/2018 8:40 AM Note Text: DISCHARGE SUMMARY PATIENT NAME: Tamia Panda ADMISSION DATE: 01/30/2018 DISCHARGE DATE: 01/31/2018 ATTENDING PHYSICIAN: Jefferson Connolly REASON FOR HOSPITALIZATION: For procedure DIAGNOSIS: Medically refractory gastroparesis OPERATIONS DURING HOSPITALIZATION: EGD and per oral pyloromyotomy PROCEDURES DURING HOSPITALIZATION: Intubation for general anesthesia HOSPITAL COURSE: This is a 63 year old F with PMH of Afib on Eliquis, COPD, CHF, CAD, Type 2 DM, HTN, HLD, Hypothyroidism, PARESH on CPAP, PE, lumbar degenerative disc disease, PSH of cholecystectomy, multiple hernia repair, PS of cholecystectomy, multiple ventral hernia repair who presented on 01/30/2018 to undergo diagnostic upper GI endoscopy with per oral pyloromyotomy. She was transferred to [facility] after the procedure for monitoring. On POD 1, she was tolerating a full liquid diet, she was deemed stable to be discharged home on 2 weeks of full liquid diet and follow up instructions. LABS AND PROCEDURES PENDING AT DISCHARGE: No pending results. CONSULTING TEAMS DURING HOSPITALIZATION: None PATIENT CONDITION AT DISCHARGE: Stable DISCHARGE DISPOSITION: Home/Self Care INFORMATION PROVIDED TO PATIENT: (To pull info documented from the DC Instruct Orderset Complete O/S First): DISCHARGE MEDICATION: Current Discharge Medication List START taking these medications oxyCODONE (ROXICODONE) 5-10 mg Take 5-10 mg by mouth every 4 hours as needed. Earliest Fill Date: 01/31/18 Qty: 30 mL Refills: 0 Associated Diagnoses:Gastroparesis sucralfate (CARAFATE) 1 g Take 1 g by mouth every 6 hours. Qty: 1200 mL Refills: 0 pantoprazole (PROTONIX) 40 mg Take 40 mg by mouth twice daily before meals (0600/1600). Qty: 1200 mL Refills: 0 CONTINUE these medications which have NOT CHANGED !! insulin glargine (LANTUS SOLOSTAR U-100 INSULIN) 100 unit/mL (3 mL) inpn Inject 56 units subcutaneously twice daily Associated Diagnoses:Type 2 diabetes mellitus with hyperglycemia, with long-term current use of insulin ([facility]) !! COMPOUNDED PRESCRIPTION OCD Titration for portable oxygen concentrator Oxygen Flow Rate between 2-6 liters. To keep oxygen saturation at or above 92%. Qty: 1 Each Refills: 0 Associated Diagnoses:Chronic obstructive pulmonary disease, unspecified COPD type ([facility]) insulin lispro (HUMALOG KWIKPEN INSULIN) 200 unit/mL (3 mL) injection Inject subcutaneously 14 units with breakfast, 22 units with lunch, and 24 units with dinner Qty: 18 mL Refills: 5 Associated Diagnoses:Type 2 diabetes mellitus with hyperglycemia, with long-term current use of insulin ([facility]) LYRICA 100 mg capsule TAKE 1 CAPSULE BY MOUTH THREE TIMES A DAY Qty: 84 capsule Refills: 5 Comments: Maximum Refills Reached Associated Diagnoses:Type 2 diabetes mellitus with diabetic neuropathy, with long-term current use of insulin ([facility]) VITAMIN C 500 mg tablet TAKE 1 TABLET BY MOUTH DAILY Qty: 30 tablet Refills: 0 Comments: Maximum Refills Reached Ferrous Gluconate (FERGON) 324 mg (38 mg iron) tablet TAKE 1 TABLET BY MOUTH DAILY WITH BREAKFAST Qty: 30 tablet Refills: 0 Comments: Maximum Refills Reached STOOL SOFTENER 100 mg capsule TAKE 1 CAPSULE BY MOUTH DAILY Qty: 28 capsule Refills: 3 Comments: Maximum Refills Reached isosorbide mononitrate ER (IMDUR) 90 mg Take 90 mg by mouth once daily. In the morning Qty: 30 tablet Refills: 11 Associated Diagnoses:Coronary artery disease with unstable angina pectoris, unspecified vessel or lesion type, unspecified whether port lions or transplanted heart ([facility]) atorvastatin (LIPITOR) 40 mg tablet TAKE 1 TABLET BY MOUTH DAILY Qty: 28 tablet Refills: 3 Comments: Maximum Refills Reached diltiazem CD (CARDIZEM CD, CARTIA XT) 180 mg 24 hr capsule TAKE 1 CAPSULE BY MOUTH EVERY MORNING Qty: 28 capsule Refills: 3 Comments: Maximum Refills Reached levothyroxine (SYNTHROID) 100 mcg tablet TAKE 1 TABLET BY MOUTH EVERY MORNING Qty: 28 tablet Refills: 3 Comments: Maximum Refills Reached nitroglycerin sublingual (NITROQUICK) 0.4 mg SL tablet DISSOLVE 1 TAB UNDER THE TONGUE NEEDED FOR CHEST PAIN EVERY 5 MINUTES UP TO 3 TIMES. IF NO RELIEF CALL 911. Qty: 25 tablet Refills: 10 metoprolol tartrate (short acting) (LOPRESSOR) 50 mg Take 50 mg by mouth twice daily. Comments: To replace metoprolol succinate OXYGEN, HOME THERAPY, 3 L/min Inhale 3 L/min as instructed as directed. Refills: 0 fluticasone (FLONASE) 2 Sprays Use 2 Sprays in each nostril once daily. Qty: 16 g Refills: 5 metFORMIN ER (GLUCOPHAGE XR) 1,000 mg Take 1,000 mg by mouth twice daily. Qty: 360 tablet Refills: 3 DULoxetine (CYMBALTA) 60 mg Take 60 mg by mouth once daily. Qty: 90 capsule Refills: 3 aspirin, enteric coated (ASPIRIN, ENTERIC COATED) 81 mg Take 81 mg by mouth every morning. Qty: 90 tablet Refills: 3 furosemide (LASIX) 40 mg Take 40 mg by mouth twice daily. Comments: Dr. Sosa changed on 02/13/17 estradiol (ESTRACE) 0.01 % (0.1 mg/gram) vaginal cream Apply pea-sized amount to perineum and 1 applicator vaginally Mon, Wed, Fri for atrophic vaginitis. Qty: 42.5 Tube Refills: 0 !! COMPOUNDED PRESCRIPTION Please fit for BiPAP mask. Qty: 1 Each Refills: 0 !! insulin glargine (LANTUS SOLOSTAR, BASAGLAR) 56 Units Inject 56 Units subcutaneously twice daily. Inject 56 units subcutaneously twice daily Qty: 45 mL Refills: 0 Comments: Prescription ONETOUCH ULTRA BLUE TEST STRIP test strip USE DIRECTED TO CHECK BLOOD SUGAR 4-5 TIMES DAILY Qty: 150 Strip Refills: 3 Comments: Prescription ONETOUCH DELICA LANCETS 30 gauge misc USE TO CHECK BLOOD SUGAR 4-5 TIMES DALIY Qty: 150 Each Refills: 3 Comments: Prescription BIPAP Bilevel PAP 15/11 cmH2O with 2 LPM oxygen bleed in, mask, tubing, filters, heated humidity, lifetime supplies. Please fax 30 day compliance download to [phone]. Dx: G47.33, G47.39. DME: [facility] Qty: 1 Device Refills: 0 mupirocin (BACTROBAN) 1 application Apply 1 application to affected area three times daily. Qty: 1 Tube Refills: 0 Associated Diagnoses:Abrasion of left calf, initial encounter promethazine (PHENERGAN) 25 mg Take 25 mg by mouth every 6 hours as needed. Qty: 20 tablet Refills: 0 Associated Diagnoses:Nausea capsaicin (ZOSTRIX-HP) 1 application Apply 1 application to affected area four times daily. Qty: 60 g Refills: 2 Associated Diagnoses:Neuropathy (HCC) ULTICARE PEN NEEDLE 31 gauge x 5/16 ndle USE DIRECTED. TO INJECT INSULINS Qty: 200 Each Refills: 5 Comments: Prescription CLAUDIA-KYLE 8.6 mg tab TAKE 1 TABLET BY MOUTH TWICE A DAY Qty: 56 tablet Refills: 3 Comments: Maximum Refills Reached ELIQUIS 2.5 mg tab tab(s) TAKE 1 TABLET BY MOUTH TWICE A DAY Qty: 56 tablet Refills: 2 Comments: originally written by Dr Baez, who can no longer prescribe glucose 16 g Take 16 g by mouth as needed for Low Blood Sugar. Qty: 10 tablet Refills: 3 albuterol HFA (PROVENTIL HFA, VENTOLIN HFA) 2 Puffs Inhale 2 Puffs as instructed every 4 hours as needed for Wheezing/Shortness of Breath. Qty: 1 Inhaler Refills: 5 Associated Diagnoses:COPD with exacerbation (HCC) !! COMPOUNDED PRESCRIPTION Evaluation for diabetic shoes and inserts Dx: E11.65, Z79.4 Qty: 1 Each Refills: 0 Associated Diagnoses:Type 2 diabetes mellitus with diabetic neuropathy, with long-term current use of insulin (HCC) Incontinence Pad, Liner, Disp 1 Device 1 Device as needed (urinary incontinence). Prevail incontinence pads. Dx: urinary incontinence. Size: small Qty: 200 Each Refills: 11 !! Blood Pressure Cuff - Home Use BLOOD PRESSURE CUFF FOR HOME USE. DX: LABILE BLOOD PRESSURE Qty: 1 Device Refills: 0 Blood-Glucose Meter (ONETOUCH ULTRA2) monitoring kit UAD to test blood sugar Qty: 1 Each Refills: 0 Comments: Code: E11.9 Type 2 diabetic, ON insulin Alcohol Swabs padm UAD to clean skin before testing blood sugar and injecting insulins. Qty: 300 Each Refills: 5 !! - Potential duplicate medications found. Please discuss with provider. STOP taking these medications omeprazole (PRILOSEC) 20 mg capsule Comments: Reason for Stopping: FUTURE APPOINTMENTS: Future Appointments Date Time Provider Department Center 02/11/2018 11:00 AM [facility]anda Rodriguez[facility] 02/19/2018 9:00 AM Respiratory Therapist [facility] 02/19/2018 9:30 AM Respiratory Therapist [facility] 02/19/2018 10:00 AM Respiratory Therapist [facility] 02/19/2018 10:15 AM Respiratory Therapist [facility] 02/19/2018 10:30 AM Lizette Acosta [facility] 03/02/2018 10:45 AM Jefferson MOLINA A/Cindi [facility]MM[facility] 03/02/2018 12:50 PM Sarah Rueda) Mark [facility] 05/06/2018 1:40 PM Shan [facility] SIGNATURE: Saba Alarcon MD PATIENT NAME: Tamia Panda DATE: January 31, 2018 TIME: 8:30 AM PAGER/CONTACT #: [id number] PROGRESS Observed: 01/31/2018 Status: COMPLETED Source: RUSSELL 8:30 AM [facility] [place] REPOSITORY O ID: [id number] Author: Samantha Sanchez Service: General Surgery Author Type: Resident Type: Progress Notes Filed: 01/31/2018 9:05 AM Note Text: General Surgery Progress Note Service Date: January 31, 2018 Assessment and Plan: Tamia Panda is a 63 year old female with history of gastroparesis who was admitted on 01/30/2018. Patient is POD [address] Jefferson Connolly. Today endorses some abdominal pain but feels ready to go home. Neuro: Pain control: tylenol and oxycodone, no toradol Cardiac: Home meds: re-start diltiazem, imdur, metoprolol tartrate today Respiratory: Incentive spirometry. Minimize use of supplemental O2. GI: Protonix 40mg BID for one month. Diet: clear liquid. Antiemetic available. FEN: HLIV. Lasix 40 BID. Electrolytes K 3.6. Renal: Urine output 150mLs over last shift. Creatinine 0.62. ID: abx not indicated. Heme: Hemoglobin 11.8. No clinical evidence of bleeding. Endo: SSI for diabetes. Wound: no incision sites Lines/Drains: PIV right hand Prophylaxis: IPCs, SHADY, OOB. Dispo: home Plan to be discussed with Dr. Jefferson Connolly. Subjective: Acute events overnight: none. Pain: controlled with medication. Nausea: controlled with antiemetics. Vomiting: no Flatus: yes Bowel movement: no Physical Exam: BP 111/65 Pulse 105 Temp 36.4 ?C (97.5 ?F) (Oral) Resp 18 Ht 157 cm (5' 1.81) Wt 99.3 kg (219 lb) SpO2 95% BMI 40.30 kg/m? GENERAL: awake, alert, in no acute distress SKIN: warm, dry LUNGS: nonlabored breathing on RA, no shortness of breath CARDIAC: warm and well perfused throughout, regular rate ABDOMEN: soft, mildly tender to palpation over epigastrium, obese. Labs: CBC, BMP, MG, PHOS Recent Labs 01/15/18 1240 12/15/17 0925 05/15/17 1309 02/26/17 1515 12/04/16 1236 09/04/16 1329 WBC 8.54 6.60 Test sent to [facility]. -- -- -- 6.54 HB 11.8 12.8 Test sent to [facility]. -- -- -- 13.1 HCT 37.7 42.5 Test sent to [facility]. -- -- -- 43.3 PLT 254 246 Test sent to [facility]. -- -- -- 247 NA 145* 145* Test sent to [facility]. 145* -- < > 138 K 3.6* 4.6 Test sent to [facility]. 4.1 -- < > 5.7* CHLOR 99 99 Test sent to [facility]. 100 -- < > 98 CO2 33* 33* Test sent to [facility]. 29 -- < > 23 BUN 16 16 Test sent to [facility]. 9 -- < > 19 CREAT 0.62 1.11* Test sent to [facility]. 0.75 -- < > 0.89 GLUC 90 110* Test sent to [facility]. 90 -- < > 382* CA 8.7 9.3 Test sent to [facility]. 9.5 -- < > 9.1 MG -- -- -- -- 1.7 -- -- < > = values in this interval not displayed. Liver Function, Amylase, AND Lipase Recent Labs 01/15/18 1240 12/15/17 0925 07/29/17 1656 05/15/17 1309 02/26/17 1515 TPROT 6.7 7.0 -- Test sent to [facility]. 7.1 ALB 3.5* 4.1 -- Test sent to [facility]. 3.3* ALT 11 11 -- Test sent to [facility]. 14 AST 15 14 -- Test sent to [facility]. 19 ALKPHOS 40 38 -- Test sent to [facility]. 38 TBILI 0.5 0.5 -- Test sent to [facility]. 0.5 LACT -- -- 1.5 -- -- Coags Recent Labs 12/15/17 0925 APTT 25.9 INR 1.0 Intake and Output: Date 01/30/18 07 - 01/31/18 0659 01/31/18 07 - 02/01/18 0659 Shift 2238-0806 7931-2110 9562-7824 24 Hour Total 5265-0598 1330-8469 8445-7698 24 Hour Total I N T A K E PO 240 240 480 PO 240 240 480 IV 600 382 982 D5 0.45%NS w/20KCL 382 382 LR 100 100 OR Crystalloid intake (mL) 500 500 Shift Total 957 588 1741 O U T P U T Urine 150 150 Void (ml) 150 150 Blood 0 0 Estimated Blood loss 0 0 Shift Total 0 150 150 Weight (kg) 99.3 99.3 99.3 99.3 99.3 99.3 99.3 99.3 Current Medications: Current hospital medications: albuterol HFA 90 mcg/actuation 2 Puff (PROVENTIL HFA, VENTOLIN HFA) 2 Puff INHALATION q 4 H PRN furosemide 40 mg tab(s) (LASIX) 40 mg ORAL BID DULoxetine 60 mg cap(s) (CYMBALTA) 60 mg ORAL DAILY glucose 16 g chewable tab(s) 16 g ORAL PRN metoprolol tartrate (short acting) 50 mg tab(s) (LOPRESSOR) 50 mg ORAL BID atorvastatin 40 mg tab(s) (LIPITOR) 40 mg ORAL AT BEDTIME diltiazem CD 180 mg cap(s) (CARDIZEM CD, CARTIA XT) 180 mg ORAL DAILY levothyroxine 100 mcg tab(s) (SYNTHROID) 100 mcg ORAL DAILY (6 AM) isosorbide mononitrate ER (IMDUR) tab(s) 90 mg 90 mg ORAL DAILY ascorbic acid (vitamin C) 500 mg tab(s) (VITAMIN C) 500 mg ORAL DAILY docusate sodium 100 mg cap(s) (COLACE) 100 mg ORAL DAILY senna 8.6 mg tab(s) (SENOKOT) 1 tablet ORAL BID ondansetron (PF) 4 mg injection (ZOFRAN) 4 mg INTRAVENOUS q 6 H acetaminophen 1,000 mg CUP (TYLENOL) 1,000 mg ORAL q 6 H oxyCODONE 5-10 mg oral liquid (ROXICODONE) 5-10 mg ORAL q 4 H PRN enoxaparin 40 mg injection (LOVENOX) 40 mg SUBCUTANEOUS DAILY dextrose 40 % 15 g 15 g ORAL PRN glucagon 1 mg injection (GLUCAGEN) 1 mg INTRAMUSCULAR PRN dextrose 50% in water 25 mL syringe 12.5 g INTRAVENOUS PRN insulin lispro injection (rapid acting) (HumaLOG) SUBCUTANEOUS q 6 H pantoprazole 40 mg CUP (PROTONIX) 40 mg ORAL BID AC (0600/1600) sucralfate 1 g CUP (CARAFATE) 1 g ORAL q 6 H Sade Wharton [id number] [id number] Please page [phone] for issues after 6PM (7PM on Wednesdays) and all day on the weekends Agree with above. Doing well. Tolerating liquids. Discharge home today. Samantha Sanchez MD, PGY-5 Pager/ *After 6pm and on weekends please page surgery web content director [phone]* NURSING PROG Observed: 01/31/2018 Status: COMPLETED Source: RUSSELL 6:41 AM [facility] REPOSITORY HNO ID: [id number] Author: Nita SandhuRn), RN Service: Nursing Author Type: Registered Nurse Type: Nursing Progress Note Filed: 01/31/2018 6:54 AM Note Text: Pt awakened for am assessment, assisted to br with 1 assist. Pt ambulated with iv pole, o2 to br and voided. Pt returned to bed with c/o back pain. Scheduled tylenol given along with am meds. VSS. Tolerates clear liquids. NURSING PROG Observed: 01/31/2018 Status: COMPLETED Source: RUSSELL 1:41 AM [facility] REPOSITORY HNO ID: [id number] Author: Nita SandhuRn), RN Service: Nursing Author Type: Registered Nurse Type: Nursing Progress Note Filed: 01/31/2018 1:41 AM Note Text: Falls video disabled. Pt educated on fall risk protocol. Call lite within reach, srx3, bed in lowest position. NURSING PROG Observed: 01/31/2018 Status: COMPLETED Source: RUSSELL 12:31 AM [facility] REPOSITORY HNO ID: [id number] Author: Nita SandhuRn), RN Service: Nursing Author Type: Registered Nurse Type: Nursing Progress Note Filed: 01/31/2018 12:34 AM Note Text: Dtr Mae and son-in-law visited pt upon arrival to floor. Pt awake and responsive, oriented x3 and answers questions appropriately. Denies pain vss, o2 maintained at 4lnc. Pt denies sob no cp. Po fluids tolerated. Dtr states she will transport pt home once discharged. Belongings including cane at bs. NURSING PROG Observed: 01/30/2018 Status: COMPLETED Source: RUSSELL 11:47 PM [facility] REPOSITORY HNO ID: [id number] Author: Allyssa CheathamRn), RN Service: (none) Author Type: Registered Nurse Type: Nursing Progress Note Filed: 01/30/2018 11:48 PM Note Text: Admission/Transfer Note PATIENT NAME: Tamia Panda Patient admitted from PACU via bed in stable condition. Actions taken: Patient oriented to room, call light function, prescribed activities, Patient rights and Quiet at night. The patient has been instructed on the plan of care . This note was completed by: Allyssa Cheatham RN NURSING PROG Observed: 01/30/2018 Status: COMPLETED Source: RUSSELL 11:19 PM [facility] REPOSITORY HNO ID: [id number] Author: Nicole Rodriguez (Rn), RN Service: (none) Author Type: Registered Nurse Type: Nursing Progress Note Filed: 01/30/2018 11:31 PM Note Text: Nursing Progress Note Topic of Note: PACU nursing note Tamia Panda [id number] Late entry- Patient initially arrived to pacu at 2116, in her baseline A-fib rhythm but with heartrate as high as 156/min. Esmolol 30mg given IV by anesthesia and the patient's heartrate did come down to less than 120/min. senior vice president also called to the bedside to assess A-fib. Patient states she did not take any of her BP meds since yesterday including her lopressor 50mg BID. Lopressor 10mg IV ordered and given x1. Dr Ellis (anesthesia staff) at bedside and aware of all above. Patient c/o being thristy. Given a sip of water and ended up drinking the entire cup of water within 15 minutes. Upper epi-gastric pain and nausea started, pain as high as 7/10 and BP now elevated. Fentanyl 50mcg x2 doses given, zofran 4mg and an additional 10mg lopressor IV to treat the elevated BP was given. Patient fell asleep. Heart rhythm remains in A-fib with heartrates 86-119/min. This note was completed by: Nicole Rodriguez RN ANES POST Observed: 01/30/2018 Status: COMPLETED Source: RUSSELL 10:17 PM [facility] REPOSITORY HNO ID: [id number] Author: Moreno Doyle () Service: Anesthesiology Author Type: Anesthesiologist Type: Anesthesia PostOp Filed: 01/30/2018 10:21 PM Note Text: POST ANESTHESIA EVALUATION NOTE SERVICE DATE: 01/30/2018 SERVICE TIME: 10:18 PM : 1955 Vitals: 01/30/18 1010 01/30/182116 Temp: 36.1 ?C (97 ?F) 36.4 ?C (97.5 ?F) 01/30/18211601/30/18212901/30/18214401/30/182199 BP: 155/69 163/103 145/74 (!) 100/49 01/30/18212901/30/18214401/30/18219901/30/182204 Pulse: (!) 128 93 120 104 01/30/18211601/30/18212901/30/18214401/30/182199 Resp: 14 21 22 19 01/30/18211601/30/18212901/30/18214401/30/182199 SpO2: 98% 97% 97% 98% Validated Vital Signs: Yes POST ANES STATUS: PACU/ICU Patient Condition: Guarded Neurological Status: Awake AND alert. Pulmonary Status: Breathing comfortably on supplemental oxygen. Airway Control: Returned to baseline unsupported. Cardiovascular Status: Guarded and afib HR 110s Pain: Adequately controlled Postoperative Nausea/Vomiting: No significant post operative nausea or vomiting Postoperative Hydration Status: Adequate. Anesthetic Complications: None Recommendation: Continue current plan of care Other Remarks: SIGNATURE: Moreno Benson MD PATIENT NAME: Tamia Panda DATE: January 30, 2018 TIME: 10:18 PM PAGER/CONTACT #: [phone] PROGRESS Observed: 01/30/2018 Status: COMPLETED Source: RUSSELL 8:54 PM [facility] REPOSITORY HNO ID: [id number] Author: Verona Mark (Res) Service: General Surgery Author Type: Resident Type: Progress Notes Filed: 01/30/2018 8:56 PM Note Text: General Surgery Plan of Care Clear liquids tonight and tomorrow Protonix 40 mg BID (1 month) Carafate 1H QID (1 month) May start eliquis and ASA tomorrow Tylenol and oxycodone for pain, no toradol Admit to observation overnight Plan to discharge home tomorrow Verona Mark MD General Surgery Resident PGY-3 [id number] BRIEF OP NOT Observed: 01/30/2018 Status: COMPLETED Source: RUSSELL 8:46 PM [facility] REPOSITORY HNO ID: [id number] Author: Verona Mark (Res) Service: General Surgery Author Type: Resident Type: Brief Op Note Filed: 01/30/2018 8:47 PM Note Text: Patient Name: Tamia Panda Log ID: [id number] Surgery Date: 01/30/2018 Incision/Procedure Start Time: 8:14 PM Incision Close/Procedure End Time: 8:44 PM Surgeon(s) and Plant Controls Specialist(s): Surgeon(s) and Role: * Jefferson Connolly - Primary * Verona (Lalito) - Resident - Assisting Anesthesia: General Endotracheal Procedures: 1. Diagnostic upper endoscopy 2. Peroral endoscopic pyloromyotomy (POP) Findings: - Normal upper endoscopy, stomach empty - Tight pyloric outlet - Myotomy completed without full thickness injury - Mucosotomy closed with 4 clips - Pylorus widely patent at the close of the case Complications: no immediate complications Fluids IVF: 500 cc EBL: scant UOP: Not collected Wound Classification: Class Not applicable Counts: Correct Specimens: None Drains/Devices/Prosthetics: None Preoperative Diagnosis: Gastroparesis Postop Diagnosis: same Postop Plan of Care: PACU then short stay unit Verona Mark MD Pager: [phone] 01/30/2018 8:46 PM PROGRESS Observed: 01/30/2018 Status: COMPLETED Source: RUSSELL 12:47 PM [facility] REPOSITORY HNO ID: [id number] Author: Paulino Keys (Res) Service: General Surgery Author Type: Resident Type: Progress Notes Filed: 01/30/2018 12:50 PM Note Text: Gastroparesis Cardinal Symptom Index 1. nausea 4 2. retching 2 3. vomiting 0 4. stomach fullness 5 5. not able to finish a normal-sized meal 4 6. feeling excessively full after meals 5 7. loss of appetite 2 8. bloating (feeling like you need to loosen your clothes) 5 9. 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 Patient to use [facility] Bedside Delivery - YES 2. If fax, patient would like us to fax prescriptions to Pharmacy of choice a. Pharmacy: b. Location: c. Phone: 3. Insurance card on file - NO 4. Credit card for payment - NO No prescriptions yet. Please page [phone] upon discharge. PT ED Observed: 01/30/2018 Status: COMPLETED Source: RUSSELL 10:46 AM [facility] REPOSITORY HNO ID: [id number] Author: Cheyenne LyRn), RN Service: Nursing Author Type: Registered Nurse Type: Patient Education Filed: 01/30/2018 10:48 AM Note Text: PRE OP LEARNING ASSESSMENT PROCEDURE/SURGERY: SURGERY: Lucinda oral pyloromyotomy READINESS TO LEARN COGNITIVE ABILITY: Alert and oriented MOTIVATION TO LEARN: Interested FAMILY SUPPORT: None - Unavailable/disinterested PATIENT LEARNS BEST BY: Multiple Methods FACTORS AFFECTING LEARNING: None PHYSICAL LIMITATIONS AFFECTING LEARNING: Limited Mobility Electronically Signed By: Cheyenne Ly RN In Department: [place] [id number] ALLIED HEALTH Observed: 01/30/2018 Status: COMPLETED Source: RUSSELL 10:29 AM [facility] REPOSITORY HNO ID: [id number] Author: Adrien Fajardo (Podiatric Foot And Ankle Specialist) Service: Spiritual Care Author Type: Podiatric Foot And Ankle Specialist Type: Allied Health Filed: 01/30/2018 10:30 AM Note Text: SPIRITUAL CARE Spiritual Care Visit Record Name: Tamia Panda Date: January 30, 2018 Type of Visit: Preoperative Prayer/Visit Visit was with (pt, family, other) and name(s): patient (Tamia). Ministry Provided During Visit: Prayer / Meditation Spiritual Presence / Support Spiritual / Theological Reflection Notes: This operator/assistant foreman provided pre-surgical prayer for patient, family and patient's care team during surgery and during this hospitalization. Referrals: No referral made Will See: n/a Follow-up Notes: Informed patient of Podiatric Foot And Ankle Specialist availability Podiatric Foot And Ankle Specialist Signature: Chaplain Neela To contact the [facility] Care Department: Please call [phone] or Page the On-Call Podiatric Foot And Ankle Specialist at pager [phone] Thank you for the opportunity to be of service. This is an electronically created document. IF PRINTED, PLEASE DO NOT REMOVE FROM THE CHART OR MODIFY PRINTED COPY. URINALYSIS WITH Collected: 01/27/2018 Status: F Source: RUSSELL MICROSCOPIC 4:01 PM [facility] REPOSITORY TYPE CODE TESTS RESULT OUT OF RANGE REFERENCE UNITS LAB UCOL Yellow Color Yellow LAB [facility] Clear Clarity Clear LAB UGLUC Negative mg/dL Glucose, Urine Negative LAB UBIL Negative Bilirubin, Urine Negative LAB UKET Negative Ketones, Urine Negative LAB USPG 1.005-1.030 Specific Dixon, Ur 1.011 LAB UHGB Negative Hemoglobin/Blood, Negative Ur LAB UPH 4.5-8.0 pH 6.0 LAB UPROT Negative mg/dL Protein, Urine Negative LAB UUROB Normal Urobilinogen Normal LAB UNITR Negative Nitrites Negative LAB ULKEST Negative Leukest Abnormal 2+ Alert LAB UCOM Comments SEE COMMENT Result Comment: N/A LAB UMCOM Urine SEE Jez Comment COMMENT Result Comment: N/A LAB UWBC 0-5 /HPF Abnormal Alert WBC 11-25 LAB URBC 0-3 /HPF RBC 0-3 LAB UCAST 0 /LPF Abnormal Alert Cast SEE COMMENT Result Comment: >10 Hyaline Cast LAB UEPI /HPF Epithelial SEE Cells COMMENT Result Comment: Few Squamous Epithelial Cells Performed By: #### UAWMIC #### [facility] [employer] [address] [place], [place] [address] Observed: 01/27/2018 Status: F Source: RUSSELL URINE CULTURE 4:01 PM [facility] REPOSITORY Sp. Request/Comment: - Best Practice Alert: To ensure optimal transport conditions and accurate culture results transfer urine specimens to urban top C and S preservative tube. Culture Result - 10,000 - <50,000 CFU/ml Normal urogenital mario Performed By: #### URCUL #### [facility] [employer] [address] [place], [place] [address] VAG PATHOGENS DNA Collected: 01/27/2018 Status: F Source: RUSSELL 3:15 PM [facility] REPOSITORY TYPE CODE TESTS RESULT OUT OF RANGE REFERENCE UNITS LAB TVDNA Negative for Trichomonas Abnormal vaginalis by DNA Trich Specimen Alert Probe vag DNA collected in Probe wrong container type. Result Comment: Account Credited RECEIVED 1 COPAN SWAB. VAGDNA TESTING REQUIRES BD AFFIRM CONTAINER TYPE. LP [id number] LAB GVDNA Negative for Abnormal Gardnerella Alert vaginalis by DNA Ricardo Specimen Probe vag DNA collected in Probe wrong container type. Result Comment: Account Credited RECEIVED 1 COPAN SWAB. VAGDNA TESTING REQUIRES BD AFFIRM CONTAINER TYPE. LP [id number] LAB CANDNA Negative for Abnormal Will Alert species by DNA Will sp Specimen Probe DNA Probe collected in wrong container type. Result Comment: Account Credited RECEIVED 1 COPAN SWAB. VAGDNA TESTING REQUIRES BD AFFIRM CONTAINER TYPE. LP [id number] Performed By: #### VAGDNA #### [facility] [address] [place] [address] Observed: 01/27/2018 Status: F Source: RUSSELL BACT/CAND VAG GRM ST 3:15 PM [facility] REPOSITORY Sp. Request/Comment: - Swab Smear Result - BACTERIAL VAGINOSIS RESULT: Stain results indicate mixed morphotypes consistent with transition from normal vaginal mario. Rare Polymorphonuclear leukocytes Rare Mononuclear cells Few Epi thelial cells WILL SPECIES RESULT: No Yeast observed Performed By: #### BVCNSM #### [facility] [address] [place] [address] PROGRESS Observed: 01/27/2018 Status: COMPLETED Source: RUSSELL 2:30 PM [facility] REPOSITORY HNO ID: [id number] Author: Katie ([facility]) Podlogar Service: (none) Author Type: Nurse Practitioner Type: Progress Notes Filed: 02/04/2018 3:29 PM Note Text: 01/27/2018 Patient presents with: Groin: pt states itching in groin area between crease of leg and private area, dark urine SUBJECTIVE: This is a 63 year old that is here today for Above Complaints. For a long time has been having itching between crease of legs and vaginal area. No alleviating or aggravating features. Denies fever, chills, rashes, dysuria, abdominal pain, nausea, vomiting,or sexual intercourse. Positive for stress incontinence, yellowish vaginal discharge on pad, urinary urgency and frequency. Is drinking 2- 3 bottles of water daily. Hx of INA/BSO for cervical cancer in 1987, Urine dip shows: Glucose, Urine (mg/dL) Date Value 01/27/2018 neg Bilirubin, Urine (no units) Date Value 01/27/2018 neg Bilirubin, Urine (no units) Date Value 01/27/2018 neg Ketones, Urine (no units) Date Value 01/27/2018 neg Specific Dixon, Ur (no units) Date Value 01/27/2018 1.005 Hemoglobin/Blood,Ur (no units) Date Value 01/27/2018 neg No results found for: PH Protein, Urine (mg/dL) Date Value 01/27/2018 neg Urobilinogen, Urine (EU) Date Value 01/27/2018 normal No components found for: NITR Leukocytes (no units) Date Value 01/27/2018 small Color/Appearance (comment:) Date Value 01/27/2018 checo PAST MEDICAL HISTORY Diagnosis Date - Acute chronic obstructive pulmonary disease with respiratory failure ([facility]) - AF (paroxysmal atrial fibrillation) ([facility]) - Anxiety - Arthritis Seeing Dr Elliott - Cervical cancer ([facility]) hysterectomy - CHF (congestive heart failure) ([facility]) - Chronic back pain Seeing Dr. Wallace - Constipation - COPD (chronic obstructive pulmonary disease) ([facility]) - Coronary atherosclerosis of [place] coronary artery Previously seeing Dr. Sosa - DDD (degenerative disc disease), lumbar - DM type 2 (diabetes mellitus, type 2) ([facility]) Seeing Dr. Foley for podiatry - DVT (deep venous thrombosis) ([facility]) Post op INA, BSO. - Dysphagia Seeing Dr. Beaulieu - Emphysema lung ([facility]) - Essential hypertension - Functional dyspepsia - Gastroparesis 2017 mild - GERD without esophagitis - Headache - History of colon polyps 11/28/2016 - Hyperlipidemia - Hypothyroidism - Incontinence Seeing Dr. Chapman - Morbid obesity ([facility]) - Muscle weakness - Nausea - PARESH on CPAP [facility], no longer using as of 10/2017, was not compliant - PE (pulmonary thromboembolism) ([facility]) Post op INA/BSO. - Pneumonia - RLS (restless legs syndrome) - Shortness of breath - Sleep apnea using oxygen currently, not on CPAP - Unsteadiness on feet - Wheezing ALLERGIES Adhesive Tape (Rosins); Cats; Dogs; Orphenadrine; Ciprofloxacin; Keflex [Cephalexin]; Niacin; Penicillin G; Penicillins; Reglan [Metoclopramide Hcl]; Xanthines MEDICATIONS Current Outpatient Prescriptions: insulin glargine (LANTUS SOLOSTAR U-100 INSULIN) 100 unit/mL (3 mL) inpn Inject 56 Units subcutaneously twice daily. Inject 56 units subcutaneously twice daily ONETOUCH ULTRA BLUE TEST STRIP test strip USE DIRECTED TO CHECK BLOOD SUGAR 4-5 TIMES DAILY ONETOUCH DELICA LANCETS 30 gauge misc USE TO CHECK BLOOD SUGAR 4-5 TIMES DALIY insulin glargine (LANTUS SOLOSTAR U-100 INSULIN) 100 unit/mL (3 mL) inpn Inject 56 units subcutaneously twice daily COMPOUNDED PRESCRIPTION OCD Titration for portable oxygen concentrator Oxygen Flow Rate between 2-6 liters. To keep oxygen saturation at or above 92%. mupirocin (BACTROBAN) 2 % ointment Apply 1 application to affected area three times daily. promethazine (PHENERGAN) 25 mg tablet Take 1 tablet by mouth every 6 hours as needed. insulin lispro (HUMALOG KWIKPEN INSULIN) 200 unit/mL (3 mL) injection Inject subcutaneously 14 units with breakfast, 22 units with lunch, and 24 units with dinner (Patient taking differently: 14 Units. Inject subcutaneously 14 units with breakfast, 22 units with lunch, and 24 units with dinner ) LYRICA 100 mg capsule TAKE 1 CAPSULE BY MOUTH THREE TIMES A DAY capsaicin (ZOSTRIX-HP) 0.075 % topical cream Apply 1 application to affected area four times daily. ULTICARE PEN NEEDLE 31 gauge x 5/16 ndle USE DIRECTED. TO INJECT INSULINS VITAMIN C 500 mg tablet TAKE 1 TABLET BY MOUTH DAILY Ferrous Gluconate (FERGON) 324 mg (38 mg iron) tablet TAKE 1 TABLET BY MOUTH DAILY WITH BREAKFAST STOOL SOFTENER 100 mg capsule TAKE 1 CAPSULE BY MOUTH DAILY CLAUDIA-KYLE 8.6 mg tab TAKE 1 TABLET BY MOUTH TWICE A DAY isosorbide mononitrate ER (IMDUR) 60 mg 24 hr tablet Take 1.5 tablets by mouth once daily. In the morning atorvastatin (LIPITOR) 40 mg tablet TAKE 1 TABLET BY MOUTH DAILY diltiazem CD (CARDIZEM CD, CARTIA XT) 180 mg 24 hr capsule TAKE 1 CAPSULE BY MOUTH EVERY MORNING levothyroxine (SYNTHROID) 100 mcg tablet TAKE 1 TABLET BY MOUTH EVERY MORNING omeprazole (PRILOSEC) 20 mg capsule TAKE 1 CAPSULE BY MOUTH EVERY MORNING ELIQUIS 2.5 mg tab tab(s) TAKE 1 TABLET BY MOUTH TWICE A DAY nitroglycerin sublingual (NITROQUICK) 0.4 mg SL tablet DISSOLVE 1 TAB UNDER THE TONGUE NEEDED FOR CHEST PAIN EVERY 5 MINUTES UP TO 3 TIMES. IF NO RELIEF CALL 911. metoprolol tartrate, short acting, (LOPRESSOR) 50 mg tablet Take 1 tablet by mouth twice daily. glucose 4 gram chewable tablet Take 4 tablets by mouth as needed for Low Blood Sugar. OXYGEN, HOME THERAPY, Inhale 3 L/min as instructed as directed. fluticasone (FLONASE) 50 mcg/actuation nasal spray Use 2 Sprays in each nostril once daily. metFORMIN ER (GLUCOPHAGE XR) 500 mg 24 hr tablet Take 2 tablets by mouth twice daily. DULoxetine (CYMBALTA) 60 mg capsule Take 1 capsule by mouth once daily. aspirin, enteric coated (ASPIRIN, ENTERIC COATED) 81 mg EC tablet Take 1 tablet by mouth every morning. furosemide (LASIX) 40 mg tablet Take 1 tablet by mouth twice daily. albuterol HFA (VENTOLIN HFA) 90 mcg/actuation inhaler Inhale 2 Puffs as instructed every 4 hours as needed for Wheezing/Shortness of Breath. COMPOUNDED PRESCRIPTION Evaluation for diabetic shoes and inserts Dx: E11.65, Z79.4 Incontinence Pad, Liner, Disp pads 1 Device as needed (urinary incontinence). Prevail incontinence pads. Dx: urinary incontinence. Size: small Blood Pressure Cuff - Home Use BLOOD PRESSURE CUFF FOR HOME USE. DX: LABILE BLOOD PRESSURE Blood-Glucose Meter (BUX ULTRA2) monitoring kit UAD to test blood sugar Alcohol Swabs padm UAD to clean skin before testing blood sugar and injecting insulins. COMPOUNDED PRESCRIPTION Please fit for BiPAP mask. BIPAP Bilevel PAP 15/11 cmH2O with 2 LPM oxygen bleed in, mask, tubing, filters, heated humidity, lifetime supplies. Please fax 30 day compliance download to [phone]. Dx: G47.33, G47.39. DME: [facility] (Patient not taking: Reported on 01/23/2018 ) No current facility-administered medications for this visit. Medications and allergies reviewed by this provider. 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 Social History Main Topics Smoking status: Former Smoker Packs/day: 1.00 Years: 28.00 Types: Cigarettes Start date: 1978 Quit date: 09/22/2005 Smokeless tobacco: Never Used Comment: Father smoked in childhood. 2nd spouse smoked in home. Alcohol use: No Drug use: No Sexual activity: No Social History Narrative 1 year in current home. No basement, 1 parakeet. Room A/C. Electric baseboard heat. REVIEW OF SYSTEMS All other reviewed and negative other than HPI. OBJECTIVE: BP 108/62 (BP Site: Right Arm, BP Position: Sitting, BP Cuff Size: Large Adult) Pulse 107 Resp 18 Wt 99.3 kg (219 lb) SpO2 96% BMI 40.30 kg/m? . Vital signs reviewed by this provider. APPEARANCE Well appearing, alert, in no acute distress, well-hydrated, well nourished. HEART RRR with normal S1 and S2, no murmurs, no gallops, no JVD appreciated LUNG clear to auscultation ABDOMEN bowel sounds normoactive, no bruits, soft, non-tender, non-distended, no tenderness to palpation FEMALE: Redness to labia. Decreased labial minora and valvular fullness with decreased moisture. Moderate amount of odorless thick white discharge. Normal vagina and normal vaginal tone. Absent cervix and uterus. RECTAL Anus normal, no anorectal masses ASSESSMENT/PLAN: 1. Itching in the vaginal area - ICD9: 698.1, ICD10: L29.8 (primary diagnosis) - possible yeast infection- will treat empiraclly - will treat with diflucan 150 mg for one dose - BACT/WILL VAG GRAM STAIN - follow-up in January with Dr. Oliveira, sooner if needed 2. Urinary urgency - ICD9: 788.63, ICD10: R39.15 - possibly d/t atrophic vagitis vs UTI - UA DIP B/O - URINALYSIS WITH MICROSCOPIC - URINE CULTURE - will treat if culture indicates needed 3. Atrophic vaginitis - ICD9: 627.3, ICD10: N95.2 - estrogen cream as prescribed - discussed using harsh soaps or wipes to area - follow-up as needed Katie Mckeon APRN.CNP Prescription instructions reviewed with patient as applicable. Patient advised if symptoms do not improve or if symptoms worsen sooner, to contact their primary care physician. Potential red flag symptoms discussed with the patient. Reviewed appropriate action plan to take if red flag symptoms occur. Patient agreeable to treatment plan. CNOV Observed: 01/27/2018 Status: COMPLETED Source: RUSSELL 2:20 PM [facility] REPOSITORY Office Visit (FAMPWS) TAMIA PANDA ([id number]) 1955 F Date Time Provider Department 01/27/18 2:20 PM [facility] your visit today, we recorded the following information about you: Pulse Respiration Blood pressure Weight 107/minute 18/minute 108/62 99.3 kg Katie Mckeon APRN.CNP 02/04/2018 3:29 PM Signed 01/27/2018 Patient presents with: Groin: pt states itching in groin area between crease of leg and private area, dark urine SUBJECTIVE: This is a 63 year old that is here today for Above Complaints. For a long time has been having itching between crease of legs and vaginal area. No alleviating or aggravating features. Denies fever, chills, rashes, dysuria, abdominal pain, nausea, vomiting,or sexual intercourse. Positive for stress incontinence, yellowish vaginal discharge on pad, urinary urgency and frequency. Is drinking 2- 3 bottles of water daily. Hx of INA/BSO for cervical cancer in 1987, Urine dip shows: Glucose, Urine (mg/dL) Date Value 01/27/2018 neg Bilirubin, Urine (no units) Date Value 01/27/2018 neg Bilirubin, Urine (no units) Date Value 01/27/2018 neg Ketones, Urine (no units) Date Value 01/27/2018 neg Specific Dixon, Ur (no units) Date Value 01/27/2018 1.005 Hemoglobin/Blood,Ur (no units) Date Value 01/27/2018 neg No results found for: PH Protein, Urine (mg/dL) Date Value 01/27/2018 neg Urobilinogen, Urine (EU) Date Value 01/27/2018 normal No components found for: NITR Leukocytes (no units) Date Value 01/27/2018 small Color/Appearance (comment:) Date Value 01/27/2018 checo PAST MEDICAL HISTORY Diagnosis Date - Acute chronic obstructive pulmonary disease with respiratory failure ([facility]) - AF (paroxysmal atrial fibrillation) ([facility]) - Anxiety - Arthritis Seeing Dr Elliott - Cervical cancer ([facility]) hysterectomy - CHF (congestive heart failure) ([facility]) - Chronic back pain Seeing Dr. Wallace - Constipation - COPD (chronic obstructive pulmonary disease) ([facility]) - Coronary atherosclerosis of port lions coronary artery Previously seeing Dr. Sosa - DDD (degenerative disc disease), lumbar - DM type 2 (diabetes mellitus, type 2) ([facility]) Seeing Dr. Foley for podiatry - DVT (deep venous thrombosis) ([facility]) Post op INA, BSO. - Dysphagia Seeing Dr. Beaulieu - Emphysema lung ([facility]) - Essential hypertension - Functional dyspepsia - Gastroparesis 2016 mild - GERD without esophagitis - Headache - History of colon polyps 11/28/2016 - Hyperlipidemia - Hypothyroidism - Incontinence Seeing Dr. Chapman - Morbid obesity (HCC) - Muscle weakness - Nausea - PARESH on CPAP [facility], no longer using as of 10/2017, was not compliant - PE (pulmonary thromboembolism) ([facility]) Post op INA/BSO. - Pneumonia - RLS (restless legs syndrome) - Shortness of breath - Sleep apnea using oxygen currently, not on CPAP - Unsteadiness on feet - Wheezing ALLERGIES Adhesive Tape (Rosins); Cats; Dogs; Orphenadrine; Ciprofloxacin; Keflex [Cephalexin]; Niacin; Penicillin G; Penicillins; Reglan [Metoclopramide Hcl]; Xanthines MEDICATIONS Current Outpatient Prescriptions: insulin glargine (LANTUS SOLOSTAR U-100 INSULIN) 100 unit/mL (3 mL) inpn Inject 56 Units subcutaneously twice daily. Inject 56 units subcutaneously twice daily ONETOUCH ULTRA BLUE TEST STRIP test strip USE DIRECTED TO CHECK BLOOD SUGAR 4-5 TIMES DAILY ONETOUCH DELICA LANCETS 30 gauge misc USE TO CHECK BLOOD SUGAR 4-5 TIMES DALIY insulin glargine (LANTUS SOLOSTAR U-100 INSULIN) 100 unit/mL (3 mL) inpn Inject 56 units subcutaneously twice daily COMPOUNDED PRESCRIPTION OCD Titration for portable oxygen concentrator Oxygen Flow Rate between 2-6 liters. To keep oxygen saturation at or above 92%. mupirocin (BACTROBAN) 2 % ointment Apply 1 application to affected area three times daily. promethazine (PHENERGAN) 25 mg tablet Take 1 tablet by mouth every 6 hours as needed. insulin lispro (HUMALOG KWIKPEN INSULIN) 200 unit/mL (3 mL) injection Inject subcutaneously 14 units with breakfast, 22 units with lunch, and 24 units with dinner (Patient taking differently: 14 Units. Inject subcutaneously 14 units with breakfast, 22 units with lunch, and 24 units with dinner ) LYRICA 100 mg capsule TAKE 1 CAPSULE BY MOUTH THREE TIMES A DAY capsaicin (ZOSTRIX-HP) 0.075 % topical cream Apply 1 application to affected area four times daily. ULTICARE PEN NEEDLE 31 gauge x 5/16 ndle USE DIRECTED. TO INJECT INSULINS VITAMIN C 500 mg tablet TAKE 1 TABLET BY MOUTH DAILY Ferrous Gluconate (FERGON) 324 mg (38 mg iron) tablet TAKE 1 TABLET BY MOUTH DAILY WITH BREAKFAST STOOL SOFTENER 100 mg capsule TAKE 1 CAPSULE BY MOUTH DAILY CLAUDIA-KYLE 8.6 mg tab TAKE 1 TABLET BY MOUTH TWICE A DAY isosorbide mononitrate ER (IMDUR) 60 mg 24 hr tablet Take 1.5 tablets by mouth once daily. In the morning atorvastatin (LIPITOR) 40 mg tablet TAKE 1 TABLET BY MOUTH DAILY diltiazem CD (CARDIZEM CD, CARTIA XT) 180 mg 24 hr capsule TAKE 1 CAPSULE BY MOUTH EVERY MORNING levothyroxine (SYNTHROID) 100 mcg tablet TAKE 1 TABLET BY MOUTH EVERY MORNING omeprazole (PRILOSEC) 20 mg capsule TAKE 1 CAPSULE BY MOUTH EVERY MORNING ELIQUIS 2.5 mg tab tab(s) TAKE 1 TABLET BY MOUTH TWICE A DAY nitroglycerin sublingual (NITROQUICK) 0.4 mg SL tablet DISSOLVE 1 TAB UNDER THE TONGUE NEEDED FOR CHEST PAIN EVERY 5 MINUTES UP TO 3 TIMES. IF NO RELIEF CALL 911. metoprolol tartrate, short acting, (LOPRESSOR) 50 mg tablet Take 1 tablet by mouth twice daily. glucose 4 gram chewable tablet Take 4 tablets by mouth as needed for Low Blood Sugar. OXYGEN, HOME THERAPY, Inhale 3 L/min as instructed as directed. fluticasone (FLONASE) 50 mcg/actuation nasal spray Use 2 Sprays in each nostril once daily. metFORMIN ER (GLUCOPHAGE XR) 500 mg 24 hr tablet Take 2 tablets by mouth twice daily. DULoxetine (CYMBALTA) 60 mg capsule Take 1 capsule by mouth once daily. aspirin, enteric coated (ASPIRIN, ENTERIC COATED) 81 mg EC tablet Take 1 tablet by mouth every morning. furosemide (LASIX) 40 mg tablet Take 1 tablet by mouth twice daily. albuterol HFA (VENTOLIN HFA) 90 mcg/actuation inhaler Inhale 2 Puffs as instructed every 4 hours as needed for Wheezing/Shortness of Breath. COMPOUNDED PRESCRIPTION Evaluation for diabetic shoes and inserts Dx: E11.65, Z79.4 Incontinence Pad, Liner, Disp pads 1 Device as needed (urinary incontinence). Prevail incontinence pads. Dx: urinary incontinence. Size: small Blood Pressure Cuff - Home Use BLOOD PRESSURE CUFF FOR HOME USE. DX: LABILE BLOOD PRESSURE Blood-Glucose Meter (M/A-COMUCH ULTRA2) monitoring kit UAD to test blood sugar Alcohol Swabs padm UAD to clean skin before testing blood sugar and injecting insulins. COMPOUNDED PRESCRIPTION Please fit for BiPAP mask. BIPAP Bilevel PAP 15/11 cmH2O with 2 LPM oxygen bleed in, mask, tubing, filters, heated humidity, lifetime supplies. Please fax 30 day compliance download to [phone]. Dx: G47.33, G47.39. DME: [facility] (Patient not taking: Reported on 01/23/2018 ) No current facility-administered medications for this visit. Medications and allergies reviewed by this provider. 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 Social History Main Topics Smoking status: Former Smoker Packs/day: 1.00 Years: 28.00 Types: Cigarettes Start date: 1978 Quit date: 09/22/2005 Smokeless tobacco: Never Used Comment: Father smoked in childhood. 2nd spouse smoked in home. Alcohol use: No Drug use: No Sexual activity: No Social History Narrative 1 year in current home. No basement, 1 parakeet. Room A/C. Electric baseboard heat. REVIEW OF SYSTEMS All other reviewed and negative other than HPI. OBJECTIVE: BP 108/62 (BP Site: Right Arm, BP Position: Sitting, BP Cuff Size: Large Adult) Pulse 107 Resp 18 Wt 99.3 kg (219 lb) SpO2 96% BMI 40.30 kg/m? . Vital signs reviewed by this provider. APPEARANCE Well appearing, alert, in no acute distress, well- hydrated, well nourished. HEART RRR with normal S1 and S2, no murmurs, no gallops, no JVD appreciated LUNG clear to auscultation ABDOMEN bowel sounds normoactive, no bruits, soft, non-tender, non-distended, no tenderness to palpation FEMALE: Redness to labia. Decreased labial minora and valvular fullness with decreased moisture. Moderate amount of odorless thick white discharge. Normal vagina and normal vaginal tone. Absent cervix and uterus. RECTAL Anus normal, no anorectal masses ASSESSMENT/PLAN: 1. Itching in the vaginal area - ICD9: 698.1, ICD10: L29.8 (primary diagnosis) - possible yeast infection- will treat empiraclly - will treat with diflucan 150 mg for one dose - BACT/WILL VAG GRAM STAIN - follow-up in January with Dr. Oliveira, sooner if needed 2. Urinary urgency - ICD9: 788.63, ICD10: R39.15 - possibly d/t atrophic vagitis vs UTI - UA DIP B/O - URINALYSIS WITH MICROSCOPIC - URINE CULTURE - will treat if culture indicates needed 3. Atrophic vaginitis - ICD9: 627.3, ICD10: N95.2 - estrogen cream as prescribed - discussed using harsh soaps or wipes to area - follow-up as needed Katie Podlogar, MED[employer].DATA INPUT CLERK Prescription instructions reviewed with patient as applicable. Patient advised if symptoms do not improve or if symptoms worsen sooner, to contact their primary care physician. Potential red flag symptoms discussed with the patient. Reviewed appropriate action plan to take if red flag symptoms occur. Patient agreeable to treatment plan. Referring Provider: SELF [[id number]] Allergies As of Date: 01/27/2018 Noted Allergy Reaction ADHESIVE TAPE (ROSINS) 04/04/2015 5 - Intolerance Comments: Surgical tape leaves rash Irritates skin badly and blisters along with medical tape CATS 04/10/2016 14 - Other: See Comments Comments: Congested and itchy, difficulty breathing DOGS 04/10/2016 14 - Other: See Comments Comments: Congestion, sneezing, and difficulty breathing ORPHENADRINE 04/10/2016 16 - Unknown CIPROFLOXACIN 12/11/2011 14 - Other: See Comments Comments: Red, hot, itchy rash KEFLEX (CEPHALEXIN) 07/10/2016 4 - Hives NIACIN 04/04/2015 16 - Unknown Comments: Pt states its niacin its niaspan PENICILLIN G 10/18/2004 PENICILLINS 04/04/2015 16 - Unknown REGLAN (METOCLOPRAMIDE HCL) 03/04/2017 14 - Other: See Comments Comments: Unable to sleep XANTHINES 10/18/2004 16 - Unknown Date Reviewed: 01/27/2018 Reviewed by: Yessi Sanchez LPN - Fully Assessed Reason for Visit: Groin [1002] Cmt: pt states itching in groin area between crease of leg and private area, dark urine Primary Visit Diagnosis:Itching in the vaginal area [L29.8] Other Visit Diagnoses:Urinary urgency [R39.15] Atrophic vaginitis [N95.2] Order(s):UA DIP B/O [[id number]] Order #: [id number] URINALYSIS WITH MICROSCOPIC [SQUAWMIC] Order #: [id number]. #:[id number] VAGINAL PATHOGENS DNA PROBES [SQVAGDNA] Order #: [id number]. #:[id number] URINE CULTURE [SQURCUL] Order #: [id number]. #:[id number] [] fluconazole (DIFLUCAN) 150 mg tabletTake 1 tablet by mouth once daily for 1 day.Disp: 1 tabletRfl: 0 estradiol (ESTRACE) 0.01 % (0.1 mg/gram) vaginal creamApply pea-sized amount to perineum and 1 applicator vaginally Mon, Wed, Fri for atrophic vaginitis.Disp: 42.5 TubeRfl: 0 BACT/WILL VAG GRAM STAIN [SQBVCNSM] Order #: [id number] FUTURE Prescriptions as of 01/27/2018 Sig: INSULIN GLARGINE (U-100) 100 * Inject 56 Units subcutaneousl* ONETOUCH ULTRA BLUE TEST STRIP USE DIRECTED TO CHECK BLOO* ONETOUCH DELICA LANCETS 30 GA* USE TO CHECK BLOOD SUGAR 4-5 * INSULIN GLARGINE (U-100) 100 * Inject 56 units subcutaneousl* COMPOUNDED PRESCRIPTION OCD Titration for portable ox* MUPIROCIN 2 % TOPICAL OINTMENT Apply 1 application to affect* PROMETHAZINE 25 MG TABLET Take 1 tablet by mouth every * INSULIN LISPRO (U-200) 200 UN* Inject subcutaneously 14 unit* Patient taking differently: 14 Units. Inject subcutaneous* LYRICA 100 MG CAPSULE TAKE 1 CAPSULE BY MOUTH THREE* CAPSAICIN 0.075 % TOPICAL CRE* Apply 1 application to affect* ULTICARE PEN NEEDLE 31 GAUGE * USE DIRECTED. TO INJECT IN* VITAMIN C 500 MG TABLET TAKE 1 TABLET BY MOUTH DAILY FERROUS GLUCONATE 324 MG (38 * TAKE 1 TABLET BY MOUTH DAILY * STOOL SOFTENER 100 MG CAPSULE TAKE 1 CAPSULE BY MOUTH DAILY CLAUDIA-KYLE 8.6 MG TABLET TAKE 1 TABLET BY MOUTH TWICE * ISOSORBIDE MONONITRATE ER 60 * Take 1.5 tablets by mouth onc* ATORVASTATIN 40 MG TABLET TAKE 1 TABLET BY MOUTH DAILY DILTIAZEM SR 180 MG 24 HR CAP TAKE 1 CAPSULE BY MOUTH EVERY* LEVOTHYROXINE 100 MCG TABLET TAKE 1 TABLET BY MOUTH EVERY * X OMEPRAZOLE 20 MG CAPSULE,MARIA EUGENIA* TAKE 1 CAPSULE BY MOUTH EVERY* ELIQUIS 2.5 MG TABLET TAKE 1 TABLET BY MOUTH TWICE * NITROGLYCERIN 0.4 MG SUBLINGU* DISSOLVE 1 TAB UNDER THE TONG* METOPROLOL TARTRATE 50 MG TAB* Take 1 tablet by mouth twice * GLUCOSE 4 GRAM CHEWABLE TABLET Take 4 tablets by mouth as ne* OXYGEN (HOME THERAPY) Inhale 3 L/min as instructed * FLUTICASONE 50 MCG/ACTUATION * Use 2 Sprays in each nostril * METFORMIN ER 500 MG TABLET,EX* Take 2 tablets by mouth twice* DULOXETINE 60 MG CAPSULE,MARIA EUGENIA* Take 1 capsule by mouth once * ASPIRIN 81 MG TABLET,DELAYED * Take 1 tablet by mouth every * FUROSEMIDE 40 MG TABLET Take 1 tablet by mouth twice * ALBUTEROL SULFATE HFA 90 MCG/* Inhale 2 Puffs as instructed * COMPOUNDED PRESCRIPTION Evaluation for diabetic shoes* INCONTINENCE PAD, LINER, DISP* 1 Device as needed (urinary i* COMPOUNDED PRESCRIPTION BLOOD PRESSURE CUFF FOR HOME * BLOOD-GLUCOSE METER KIT UAD to test blood sugar ALCOHOL SWABS UAD to clean skin before test* FLUCONAZOLE 150 MG TABLET Take 1 tablet by mouth once d* ESTRADIOL 0.01% (0.1 MG/GRAM)* Apply pea-sized amount to per* COMPOUNDED PRESCRIPTION Please fit for BiPAP mask. BIPAP Bilevel PAP 15/11 cmH2O with * Patient not taking: Reported on 01/23/2018 Problem List As Of Date 01/27/2018 Noted Resolved SUBJECTIVE TINNITUS [H93.19] INVALID FOR* PARESH treated with BiPAP [G47.33] INVALID FOR* Hyperlipidemia [E78.5] INVALID FOR* Coronary disease [I25.10] INVALID FOR* Diabetes mellitus, type II (HCC) [E11.9] INVALID FOR* Morbid obesity (HCC) [E66.01] Hypothyroidism [E03.9] Anxiety [F41.9] Sleep apnea [G47.30] 02/14/2017 Essential hypertension [I10] Coronary artery disease of port lions artery of [place]* AF (paroxysmal atrial fibrillation) (HCC) [I48.* COPD (chronic obstructive pulmonary disease) (H* GERD without esophagitis [K21.9] Dysphagia [R13.10] Constipation [K59.00] DM type 2 (diabetes mellitus, type 2) ([facility]) [E1* 02/14/2017 Shortness of breath [R06.02] 02/14/2017 Arthritis [M19.90] More... CHF (congestive heart failure) ([facility]) [I50.9] BPPV (benign paroxysmal positional vertigo) [H8*INVALID FOR* RLS (restless legs syndrome) [G25.81] INVALID FOR* Iron deficiency concern: RE RLS [E61.1] INVALID FOR* Tubular adenoma [D36.9] INVALID FOR* Incontinence [R32] More... Gastroparesis [K31.84] INVALID FOR* Pre-op testing [Z01.818] INVALID FOR* More... Hypercapnia [R06.89] INVALID FOR* S/P coronary artery stent placement [Z95.5] INVALID FOR* Stage 3 chronic kidney disease [N18.3] INVALID FOR* Depression [F32.9] INVALID FOR* Prescriptions ordered this encounter Disp Refills Start End FLUCONAZOLE 150 MG TABLET 1 ta* 0 01/27/2018 01/28/2018 Route: ORAL Sig: Take 1 tablet by mouth once daily for 1 day. ESTRADIOL 0.01% (0.1 MG/GRAM) VAGINA* 42.5* 0 01/27/2018 Sig: Apply pea-sized amount to perineum and 1 applicator vaginally Mon, Wed, Fri for atrophic vaginitis. Follow-up and Disposition History Recorded Encounter Status:Closed by KATIE MCKEON CNP on 02/04/18 PROGRESS Observed: 01/23/2018 Status: COMPLETED Source: RUSSELL 2:18 PM [facility] [place] REPOSITORY O ID: [id number] Author: Osmani Jorgensen RN Service: (none) Author Type: (none) Type: Progress Notes Filed: 01/23/2018 2:33 PM Note Text: ANESTHESIA PRE-OPERATIVE ASSESSMENT (PACE) SERVICE DATE: 01/23/2018 SERVICE TIME: 1:26 pm ASSESSMENT AND PLAN: Tamia Panda is a 63 year old female scheduled for ENDOSCOPIC PER-ORAL PYLOROMYOTOMY per Surgery Request Case in MAIN on 01/30/18. PMH: 1. gastroparesis - on carafate, prilosec, phenergan 2. Pt saw CARDS 12/16/17 for pre op assessment she c/o chest pain at rest and with exertion (relieved with nitro) last episode few months ago awoke her from sleep, radiating down her arm- took two nitro tabs. scanned stress test 2015- lexiscan nuclear stress test with moderate to large inferolateral scar with minimal anterior ischemia, ef 76 with normal wall motion scanned echo 2013- ef 65- 70% mild lvh, rvsp 10mmHG. CARDS ordered [facility] results were no obstructive coronary arteries on 12/23/17 ? 3.atrial fibrillation/flutter on eliquis to hold 2 days prior per impact. 4. htn takes metropolol 5. copd on 3 L oxygen 14/04, albuterol as needed 6. PARESH no cpap, pt to schedule a sleep study 7. PE 1997 8. DM on insulin and oral (fbs 120-160) A1C 6.1 (lantus 56 units BID, humalog kwik pin with meals, metformin 1000mg BID) severe neuropathy on lyrica 9. Anxiety 10. hypothyroid takes synthroid 11. hpl 12. Ex smoker quit in 2005 smoked for 28 years [facility]: 4 FC: IV METS: Walk indoors, such as around the house (1.75 METs) Take care of self; that is eating, dressing, bathing, using the toilet (2.75 METs) Patient denies any chest pain or undue shortness of breath with the above physical activity. ADDITIONAL DISCUSSION WITH PATIENT: Discussed with patient the possibilities of invasive monitoring, blood loss or possibiltiy of prolonged ICU stay and intubation. Patient WILL accept blood products. BLOOD WORK/PRODUCTS ORDERED: Type and Screen HISTORY OF CHRONIC PAIN: No PAIN MANAGEMENT OPTIONS: Routine/PRN IV and Final pain management plan will be discussed on the day of surgery. ANESTHETIC OPTIONS: General and Final anesthesia management options will be discussed on day of surgery. PRE-OP PLAN ORDERED: Aspiration prophylaxis, Diabetes orders, Day of surgery Labs: accucheck Patient Instructed: ? No solid food or non-clear liquids after midnight. Clear liquids allowed until two hours before scheduled arrival. ? Patient instructed to take the following medications with a sip of water: LYRICA, IMDUR, CARDIZEM , LIPITOR, levothyroxine , metoprolol tartrate, CYMBALTA Vital Signs: BP 97/72 Pulse 61 Temp 36.4 ?C (97.5 ?F) Ht 157 cm (5' 1.81) Wt 99 kg (218 lb 4.1 oz) SpO2 97% BMI 40.16 kg/m? BMI 40.16 kg/(m2) Vital signs completed by: IMPACT Weight acquired: per HANDP. Height acquired: per HANDP Airway Exam: MOUTH OPENING/TMJ: Full jaw ROM MICROGNATHIA/OVERBITE: No MALLAMPATI SCORE is III UPPER LIP BITE TEST: Unable to perform DENTITION: Edentulous/dentures THYROMENTAL DIST: WNL SHORT NECK: Yes - short/thick secondary to obesity. NECK CIRCUMFERENCE >40 cm: Neck Circumference measured at 49 cm NECK FLEX: Full ROM NECK EXTENSION: Full ROM AIRWAY HISTORY: IMPACT MICHELLE AIRWAY DETAIL: N/A DATA: EKG READING: Confirmed - Procedure Date : Dec 15 2017 09:03:30 Edit Date : Dec 15 2017 09:05:56 ? Diagnosis:ATRIAL FIBRILLATION INFERIOR MYOCARDIAL INFARCTION , AGE UNDETERMINED ABNORMAL ECG OTHER TESTS: Cardiac Cath 12/23/2017: Single vessel LCX, with collateral and very small occlusion, none obstructive coronary arteries scanned stress test 2015- lexiscan nuclear stress test with moderate to large inferolateral scar with minimal anterior ischemia, ef 76 with normal wall motion scanned echo 2013- ef 65- 70% mild lvh, rvsp 10mmHG ? PFT: Date: 2016 , Results: IMPRESSION: The TLC, FRC and RV are reduced indicating restriction. The diffusing capacity is moderately reduced. The presence of a reduced DLCO that normalizes when corrected for volume is consistent with a nonparenchymal disorder but does not rule out parenchymal or pulmonary vascular disease. The diffusing capacity corrected for volume is normal. Electronically Signed On 01-17-2017 8:09:02 EDT by Gayathri Jacome ? Chest X-ray: sep 2017 IMPRESSION: There is some flattening of hemidiaphragms No acute infiltrate or effusion : Lab Value Units Date High Low HB 11.8 g/dL 01/15/2018 15.5 11.5 HCT 37.7 % 01/15/2018 46.0 36.0 WBC 8.54 k/uL 01/15/2018 11.00 3.70 PLT 254 k/uL 01/15/2018 400 150 NA 145 mmol/L 01/15/2018 144 136 K 3.6 mmol/L 01/15/2018 5.1 3.7 GLUC 90 mg/dL 01/15/2018 99 74 BUN 16 mg/dL 01/15/2018 21 7 CREAT 0.62 mg/dL 01/15/2018 0.96 0.58 PTSEC 10.4 sec 12/15/2017 13.0 9.7 INR 1.0 no uni* 12/15/2017 1.3 0.9 APTT 25.9 sec 12/15/2017 32.4 23.0 ALT 11 U/L 01/15/2018 38 7 AST 15 U/L 01/15/2018 35 13 TBILI 0.5 mg/dL 01/15/2018 1.3 0.2 TSH No results within date range. Lab Value Units Date High Low HCGQT No results within date range. UHCG No results within date range. HCG, BODY* No results within date range. ABORHD A POSI* no uni* 12/15/2017 ABSCREEN NEG no uni* 12/15/2017 HBA1C: Hemoglobin A1C (%) Date Value 12/11/2017 6.3 07/29/2017 6.1 ) Patient accompanied by self Case Discussed with Dr Schofield OPTIMIZATION STATUS: Patient optimization pending Labs IMPACT SIGNATURE: Osmani Jorgensen RN PATIENT NAME: Tamia Rodriguez Henry DATE: January 23, 2018 TIME: 2:18 PM PAGER/CONTACT #: [email or web address] Observed: 01/23/2018 Status: COMPLETED Source: RUSSELL 12:00 PM [facility] REPOSITORY Office Visit (PSSCMN) TAMIA PANDA ([id number]) 1955 F Date Time Provider Department 01/23/18 12:00 PM [facility] During your visit today, we recorded the following information about you: Temperature Pulse Blood pressure Weight 97.5 degrees 61/minute 97/72 99 kg Height 1.57 m Osmani Jorgensen RN 01/23/2018 2:33 PM Signed ANESTHESIA PRE-OPERATIVE ASSESSMENT (PACE) SERVICE DATE: 01/23/2018 SERVICE TIME: 1:26 pm ASSESSMENT AND PLAN: Tamia Panda is a 63 year old female scheduled for ENDOSCOPIC PER-ORAL PYLOROMYOTOMY per Surgery Request Case in MAIN on 01/30/18. PMH: 1. gastroparesis - on carafate, prilosec, phenergan 2. Pt saw CARDS 12/16/17 for pre op assessment she c/o chest pain at rest and with exertion (relieved with nitro) last episode few months ago awoke her from sleep, radiating down her arm- took two nitro tabs. scanned stress test 2015- lexiscan nuclear stress test with moderate to large inferolateral scar with minimal anterior ischemia, ef 76 with normal wall motion scanned echo 2013- ef 65- 70% mild lvh, rvsp 10mmHG. CARDS ordered [facility] results were no obstructive coronary arteries on 12/23/17 ? 3.atrial fibrillation/flutter on eliquis to hold 2 days prior per impact. 4. htn takes metropolol 5. copd on 3 L oxygen 14/04, albuterol as needed 6. PARESH no cpap, pt to schedule a sleep study 7. PE 1997 8. DM on insulin and oral (fbs 120-160) A1C 6.1 (lantus 56 units BID, humalog kwik pin with meals, metformin 1000mg BID) severe neuropathy on lyrica 9. Anxiety 10. hypothyroid takes synthroid 11. hpl 12. Ex smoker quit in 2005 smoked for 28 years [facility]: 4 FC: IV METS: Walk indoors, such as around the house (1.75 METs) Take care of self; that is eating, dressing, bathing, using the toilet (2.75 METs) Patient denies any chest pain or undue shortness of breath with the above physical activity. ADDITIONAL DISCUSSION WITH PATIENT: Discussed with patient the possibilities of invasive monitoring, blood loss or possibiltiy of prolonged ICU stay and intubation. Patient WILL accept blood products. BLOOD WORK/PRODUCTS ORDERED: Type and Screen HISTORY OF CHRONIC PAIN: No PAIN MANAGEMENT OPTIONS: Routine/PRN IV and Final pain management plan will be discussed on the day of surgery. ANESTHETIC OPTIONS: General and Final anesthesia management options will be discussed on day of surgery. PRE-OP PLAN ORDERED: Aspiration prophylaxis, Diabetes orders, Day of surgery Labs: accucheck Patient Instructed: ? No solid food or non-clear liquids after midnight. Clear liquids allowed until two hours before scheduled arrival. ? Patient instructed to take the following medications with a sip of water: LYRICA, IMDUR, CARDIZEM , LIPITOR, levothyroxine , metoprolol tartrate, CYMBALTA Vital Signs: BP 97/72 Pulse 61 Temp 36.4 ?C (97.5 ?F) Ht 157 cm (5' 1.81) Wt 99 kg (218 lb 4.1 oz) SpO2 97% BMI 40.16 kg/m? BMI 40.16 kg/(m2) Vital signs completed by: NILS Weight acquired: per HANDP. Height acquired: per HANDP Airway Exam: MOUTH OPENING/TMJ: Full jaw ROM MICROGNATHIA/OVERBITE: No MALLAMPATI SCORE is III UPPER LIP BITE TEST: Unable to perform DENTITION: Edentulous/dentures THYROMENTAL DIST: WNL SHORT NECK: Yes - short/thick secondary to obesity. NECK CIRCUMFERENCE >40 cm: Neck Circumference measured at 49 cm NECK FLEX: Full ROM NECK EXTENSION: Full ROM AIRWAY HISTORY: NILS MARTINEZ AIRWAY DETAIL: N/A DATA: EKG READING: Confirmed - Procedure Date : Dec 15 2017 09:03:30 Edit Date : Dec 15 2017 09:05:56 ? Diagnosis:ATRIAL FIBRILLATION INFERIOR MYOCARDIAL INFARCTION , AGE UNDETERMINED ABNORMAL ECG OTHER TESTS: Cardiac Cath 12/23/2017: Single vessel LCX, with collateral and very small occlusion, none obstructive coronary arteries scanned stress test 2015- lexiscan nuclear stress test with moderate to large inferolateral scar with minimal anterior ischemia, ef 76 with normal wall motion scanned echo 2013- ef 65- 70% mild lvh, rvsp 10mmHG ? PFT: Date: 2016 , Results: IMPRESSION: The TLC, FRC and RV are reduced indicating restriction. The diffusing capacity is moderately reduced. The presence of a reduced DLCO that normalizes when corrected for volume is consistent with a nonparenchymal disorder but does not rule out parenchymal or pulmonary vascular disease. The diffusing capacity corrected for volume is normal. Electronically Signed On 01-17-2017 8:09:02 EDT by Gayathri Jacome ? Chest X-ray: sep 2017 IMPRESSION: There is some flattening of hemidiaphragms No acute infiltrate or effusion : Lab Value Units Date High Low HB 11.8 g/dL 01/15/2018 15.5 11.5 HCT 37.7 % 01/15/2018 46.0 36.0 WBC 8.54 k/uL 01/15/2018 11.00 3.70 PLT 254 k/uL 01/15/2018 400 150 NA 145 mmol/L 01/15/2018 144 136 K 3.6 mmol/L 01/15/2018 5.1 3.7 GLUC 90 mg/dL 01/15/2018 99 74 BUN 16 mg/dL 01/15/2018 21 7 CREAT 0.62 mg/dL 01/15/2018 0.96 0.58 PTSEC 10.4 sec 12/15/2017 13.0 9.7 INR 1.0 no uni* 12/15/2017 1.3 0.9 APTT 25.9 sec 12/15/2017 32.4 23.0 ALT 11 U/L 01/15/2018 38 7 AST 15 U/L 01/15/2018 35 13 TBILI 0.5 mg/dL 01/15/2018 1.3 0.2 TSH No results within date range. Lab Value Units Date High Low HCGQT No results within date range. UHCG No results within date range. HCG, BODY* No results within date range. ABORHD A POSI* no uni* 12/15/2017 ABSCREEN NEG no uni* 12/15/2017 HBA1C: Hemoglobin A1C (%) Date Value 12/11/2017 6.3 07/29/2017 6.1 ) Patient accompanied by self Case Discussed with Dr Schofield OPTIMIZATION STATUS: Patient optimization pending Labs IMPACT SIGNATURE: Osmani Jorgensen RN PATIENT NAME: Tamia Panda DATE: January 23, 2018 TIME: 2:18 PM PAGER/CONTACT #: Referring Provider: JEFFERSON CONNOLLY [[id number]] Allergies As of Date: 01/23/2018 Noted Allergy Reaction ADHESIVE TAPE (ROSINS) 04/04/2015 5 - Intolerance Comments: Surgical tape leaves rash Irritates skin badly and blisters along with medical tape CATS 04/10/2016 14 - Other: See Comments Comments: Congested and itchy, difficulty breathing DOGS 04/10/2016 14 - Other: See Comments Comments: Congestion, sneezing, and difficulty breathing ORPHENADRINE 04/10/2016 16 - Unknown CIPROFLOXACIN 12/11/2011 14 - Other: See Comments Comments: Red, hot, itchy rash KEFLEX (CEPHALEXIN) 07/10/2016 4 - Hives NIACIN 04/04/2015 16 - Unknown NIACIN PREPARATIONS 10/18/2004 PENICILLIN G 10/18/2004 PENICILLINS 04/04/2015 16 - Unknown REGLAN (METOCLOPRAMIDE HCL) 03/04/2017 14 - Other: See Comments Comments: Unable to sleep XANTHINES 10/18/2004 16 - Unknown Date Reviewed: 01/23/2018 Reviewed by: Osmani Jorgensen RN - Fully Assessed Primary Visit Diagnosis:Pre-op evaluation [Z01.818] Prescriptions as of 01/23/2018 Sig: COMPOUNDED PRESCRIPTION Please fit for BiPAP mask. INSULIN GLARGINE (U-100) 100 * Inject 56 Units subcutaneousl* ONETOUCH ULTRA BLUE TEST STRIP USE DIRECTED TO CHECK BLOO* ONETOUCH DELICA LANCETS 30 GA* USE TO CHECK BLOOD SUGAR 4-5 * INSULIN GLARGINE (U-100) 100 * Inject 56 units subcutaneousl* BIPAP Bilevel PAP 15/11 cmH2O with * Patient not taking: Reported on 01/23/2018 COMPOUNDED PRESCRIPTION OCD Titration for portable ox* MUPIROCIN 2 % TOPICAL OINTMENT Apply 1 application to affect* PROMETHAZINE 25 MG TABLET Take 1 tablet by mouth every * INSULIN LISPRO (U-200) 200 UN* Inject subcutaneously 14 unit* Patient taking differently: 14 Units. Inject subcutaneous* LYRICA 100 MG CAPSULE TAKE 1 CAPSULE BY MOUTH THREE* CAPSAICIN 0.075 % TOPICAL CRE* Apply 1 application to affect* ULTICARE PEN NEEDLE 31 GAUGE * USE DIRECTED. TO INJECT IN* VITAMIN C 500 MG TABLET TAKE 1 TABLET BY MOUTH DAILY FERROUS GLUCONATE 324 MG (38 * TAKE 1 TABLET BY MOUTH DAILY * STOOL SOFTENER 100 MG CAPSULE TAKE 1 CAPSULE BY MOUTH DAILY CLAUDIA-KYLE 8.6 MG TABLET TAKE 1 TABLET BY MOUTH TWICE * ISOSORBIDE MONONITRATE ER 60 * Take 1.5 tablets by mouth onc* ATORVASTATIN 40 MG TABLET TAKE 1 TABLET BY MOUTH DAILY DILTIAZEM SR 180 MG 24 HR CAP TAKE 1 CAPSULE BY MOUTH EVERY* LEVOTHYROXINE 100 MCG TABLET TAKE 1 TABLET BY MOUTH EVERY * OMEPRAZOLE 20 MG CAPSULE,MARIA EUGENIA* TAKE 1 CAPSULE BY MOUTH EVERY* ELIQUIS 2.5 MG TABLET TAKE 1 TABLET BY MOUTH TWICE * NITROGLYCERIN 0.4 MG SUBLINGU* DISSOLVE 1 TAB UNDER THE TONG* METOPROLOL TARTRATE 50 MG TAB* Take 1 tablet by mouth twice * GLUCOSE 4 GRAM CHEWABLE TABLET Take 4 tablets by mouth as ne* OXYGEN (HOME THERAPY) Inhale 3 L/min as instructed * FLUTICASONE 50 MCG/ACTUATION * Use 2 Sprays in each nostril * METFORMIN ER 500 MG TABLET,EX* Take 2 tablets by mouth twice* DULOXETINE 60 MG CAPSULE,MARIA EUGENIA* Take 1 capsule by mouth once * ASPIRIN 81 MG TABLET,DELAYED * Take 1 tablet by mouth every * FUROSEMIDE 40 MG TABLET Take 1 tablet by mouth twice * ALBUTEROL SULFATE HFA 90 MCG/* Inhale 2 Puffs as instructed * COMPOUNDED PRESCRIPTION Evaluation for diabetic shoes* INCONTINENCE PAD, LINER, DISP* 1 Device as needed (urinary i* COMPOUNDED PRESCRIPTION BLOOD PRESSURE CUFF FOR HOME * BLOOD-GLUCOSE METER KIT UAD to test blood sugar ALCOHOL SWABS UAD to clean skin before test* Problem List As Of Date 01/23/2018 Noted Resolved SUBJECTIVE TINNITUS [H93.19] INVALID FOR* PARESH treated with BiPAP [G47.33] INVALID FOR* Hyperlipidemia [E78.5] INVALID FOR* Coronary disease [I25.10] INVALID FOR* Diabetes mellitus, type II (HCC) [E11.9] INVALID FOR* Morbid obesity ([facility]) [E66.01] Hypothyroidism [E03.9] Anxiety [F41.9] Sleep apnea [G47.30] 02/14/2017 Essential hypertension [I10] Coronary artery disease of port lions artery of stoney* AF (paroxysmal atrial fibrillation) ([facility]) [I48.* COPD (chronic obstructive pulmonary disease) (H* GERD without esophagitis [K21.9] Dysphagia [R13.10] Constipation [K59.00] DM type 2 (diabetes mellitus, type 2) ([facility]) [E1* 02/14/2017 Shortness of breath [R06.02] 02/14/2017 Arthritis [M19.90] More... CHF (congestive heart failure) (HCC) [I50.9] BPPV (benign paroxysmal positional vertigo) [H8*INVALID FOR* RLS (restless legs syndrome) [G25.81] INVALID FOR* Iron deficiency concern: RE RLS [E61.1] INVALID FOR* Tubular adenoma [D36.9] INVALID FOR* Incontinence [R32] More... Gastroparesis [K31.84] INVALID FOR* Pre-op testing [Z01.818] INVALID FOR* More... Hypercapnia [R06.89] INVALID FOR* S/P coronary artery stent placement [Z95.5] INVALID FOR* Stage 3 chronic kidney disease [N18.3] INVALID FOR* Depression [F32.9] INVALID FOR* Encounter Status:Closed by OSMANI JORGENSEN RN on 01/23/18 Chart Close Cosign Required by: Tarik Schofield[] PROGRESS Observed: 01/23/2018 Status: COMPLETED Source: [place] 11:42 AM [facility] REPOSITORY HNO ID: [id number] Author: Sara Baker Ma Service: (none) Author Type: (none) Type: Progress Notes Filed: 01/23/2018 12:50 PM Note Text: Tamia Panda is a 63 year old female here today for visit in IMPACT Referring Surgeon: Dr. Connolly Date of Surgery: 01/30/2018 Planned Surgery/Procedure: ENDOSCOPIC PER-ORAL PYLO Allergies have been reviewed and verified. They include the following: Adhesive Tape (Rosins); Cats; Dogs; Orphenadrine; Ciprofloxacin; Keflex [Cephalexin]; Niacin; Niacin Preparations; Penicillin G; Penicillins; Reglan [Metoclopramide Hcl]; Xanthines Social History Substance Use Topics - Smoking status: Former Smoker Packs/day: 1.00 Years: 28.00 Types: Cigarettes Start date: 1978 Quit date: 09/22/2005 - Smokeless tobacco: Never Used Comment: Father smoked in childhood. 2nd spouse smoked in home. - Alcohol use No Medications reviewed and updated: Yes Sara Baker Ma HISTORY PHYSICAL Observed: 01/23/2018 Status: COMPLETED Source: [place] 11:25 AM [facility] REPOSITORY HNO ID: [id number] Author: Krzysztof Goodwin Service: (none) Author Type: Physician Type: HANDP Filed: 01/23/2018 12:50 PM Note Text: HISTORY AND PHYSICAL EXAMINATION (IMPACT) SERVICE DATE: 01/23/2018 SERVICE TIME: 11:25 AM PRIMARY CARE PHYSICIAN: Nanda Oliveira) CHIEF COMPLAINT/HISTORY OF PRESENT ILLNESS: Ms. Panda is a 63 year old female referred to me for preoperative evaluation. My final recommendations will be communicated back to the requesting physician/surgeon by the way of the shared medical record. Referring Surgeon: Jefferson Mckay Date of Surgery: 01/30/18 Planned Surgery/Procedure: ENDOSCOPIC PER-ORAL PYLOROMYOTOMY Indication for Planned Surgery / Procedure: Gastroparesis Refer to Assessment section for details of any comorbidities. Patient is Able to Perform the Following Physical Activity: Take care of self; that is eating, dressing, bathing, using the toilet (2.75 METs) Patient denies any chest pain or undue shortness of breath with the above physical activity. physical limitation Patient's functional class is IV based on self-reported physical activity. Significant Anesthesia Considerations: None. PAST MEDICAL/SURGICAL/FAMILY/SOCIAL HISTORY PAST MEDICAL HISTORY Diagnosis Date - Acute chronic obstructive pulmonary disease with respiratory failure ([facility]) - AF (paroxysmal atrial fibrillation) ([facility]) - Anxiety - Arthritis Seeing Dr Elliott - Cervical cancer ([facility]) hysterectomy - CHF (congestive heart failure) ([facility]) - Chronic back pain Seeing Dr. Wallace - Constipation - COPD (chronic obstructive pulmonary disease) ([facility]) - Coronary atherosclerosis of port lions coronary artery Previously seeing Dr. Sosa - DDD (degenerative disc disease), lumbar - DM type 2 (diabetes mellitus, type 2) ([facility]) Seeing Dr. Foley for podiatry - DVT (deep venous thrombosis) ([facility]) Post op INA, BSO. - Dysphagia Seeing Dr. Beaulieu - Emphysema lung ([facility]) - Essential hypertension - Functional dyspepsia - Gastroparesis 2016 mild - GERD without esophagitis - Headache - History of colon polyps 11/28/2016 - Hyperlipidemia - Hypothyroidism - Incontinence Seeing Dr. Chapman - Morbid obesity ([facility]) - Muscle weakness - Nausea - PARESH on CPAP [facility], no longer using as of 10/2017, was not compliant - PE (pulmonary thromboembolism) ([facility]) Post op INA/BSO. - Pneumonia - RLS (restless legs syndrome) - Shortness of breath - Sleep apnea using oxygen currently, not on CPAP - Unsteadiness on feet - Wheezing PAST SURGICAL HISTORY Procedure Laterality Date - CHOLECYSTECTOMY - COLONOS W/REM POLYP SNARE 11/28/2016 Repeat 2020 - COLONOSCOPY Has had multiple in the past with polyps, cannot remember dates - EGD W/O BRSH SPECIMEN W/BX 11/28/2016 - HERNIA REPAIR HX multiple - KNEE SURGERY HX Left x3 for torn cartilage - NASAL SURGERY PROCEDURE sinus - TOTAL ABDOM HYSTERECTOMY 1987 Cervical cancer - TUBAL LIGATION HX - WRIST SURGERY HX Right ganglion cyst removal x2 FAMILY HISTORY Problem Relation Age of Onset - Coronary Artery Disease Mother - Coronary Artery Disease Father - Asthma Brother - Coronary Artery Disease Brother - Diabetes Sister - Hypertension Sister - Diabetes Sister - Heart Sister - Allergies Sister - Asthma Sister - Allergies Sister - Emphysema Sister Early stages - COPD Paternal Uncle SOCIAL HISTORYSocial History Marital status: Spouse name: Years of education: Number of children: Occupational History 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 Social History Main Topics Smoking status: Former Smoker Packs/day: 1.00 Years: 28.00 Types: Cigarettes Start date: 1978 Quit date: 09/22/2005 Smokeless tobacco: Never Used Comment: Father smoked in childhood. 2nd spouse smoked in home. Alcohol use: No Drug use: No Sexual activity: No Social History Narrative 1 year in current home. No basement, 1 parakeet. Room A/C. Electric baseboard heat. MEDICATIONS/ALLERGIES Current Outpatient Prescriptions: COMPOUNDED PRESCRIPTION Please fit for BiPAP mask. Disp: 1 Each Rfl: 0 insulin glargine (LANTUS SOLOSTAR U-100 INSULIN) 100 unit/mL (3 mL) inpn Inject 56 Units subcutaneously twice daily. Inject 56 units subcutaneously twice daily Disp: 45 mL Rfl: 0 ONETOUCH ULTRA BLUE TEST STRIP test strip USE DIRECTED TO CHECK BLOOD SUGAR 4-5 TIMES DAILY Disp: 150 Strip Rfl: 3 ONETOUCH DELICA LANCETS 30 gauge misc USE TO CHECK BLOOD SUGAR 4-5 TIMES DALIY Disp: 150 Each Rfl: 3 insulin glargine (LANTUS SOLOSTAR U-100 INSULIN) 100 unit/mL (3 mL) inpn Inject 56 units subcutaneously twice daily Disp: Rfl: BIPAP Bilevel PAP 15/11 cmH2O with 2 LPM oxygen bleed in, mask, tubing, filters, heated humidity, lifetime supplies. Please fax 30 day compliance download to [phone]. Dx: G47.33, G47.39. DME: [facility] Disp: 1 Device Rfl: 0 COMPOUNDED PRESCRIPTION OCD Titration for portable oxygen concentrator Oxygen Flow Rate between 2-6 liters. To keep oxygen saturation at or above 92%. Disp: 1 Each Rfl: 0 mupirocin (BACTROBAN) 2 % ointment Apply 1 application to affected area three times daily. Disp: 1 Tube Rfl: 0 promethazine (PHENERGAN) 25 mg tablet Take 1 tablet by mouth every 6 hours as needed. Disp: 20 tablet Rfl: 0 insulin lispro (HUMALOG KWIKPEN INSULIN) 200 unit/mL (3 mL) injection Inject subcutaneously 14 units with breakfast, 22 units with lunch, and 24 units with dinner (Patient taking differently: 14 Units. Inject subcutaneously 14 units with breakfast, 22 units with lunch, and 24 units with dinner ) Disp: 18 mL Rfl: 5 LYRICA 100 mg capsule TAKE 1 CAPSULE BY MOUTH THREE TIMES A DAY Disp: 84 capsule Rfl: 5 capsaicin (ZOSTRIX-HP) 0.075 % topical cream Apply 1 application to affected area four times daily. Disp: 60 g Rfl: 2 ULTICARE PEN NEEDLE 31 gauge x 5/16 ndle USE DIRECTED. TO INJECT INSULINS Disp: 200 Each Rfl: 5 VITAMIN C 500 mg tablet TAKE 1 TABLET BY MOUTH DAILY Disp: 30 tablet Rfl: 0 Ferrous Gluconate (FERGON) 324 mg (38 mg iron) tablet TAKE 1 TABLET BY MOUTH DAILY WITH BREAKFAST Disp: 30 tablet Rfl: 0 STOOL SOFTENER 100 mg capsule TAKE 1 CAPSULE BY MOUTH DAILY Disp: 28 capsule Rfl: 3 CLAUDIA-KYLE 8.6 mg tab TAKE 1 TABLET BY MOUTH TWICE A DAY Disp: 56 tablet Rfl: 3 isosorbide mononitrate ER (IMDUR) 60 mg 24 hr tablet Take 1.5 tablets by mouth once daily. In the morning Disp: 30 tablet Rfl: 11 atorvastatin (LIPITOR) 40 mg tablet TAKE 1 TABLET BY MOUTH DAILY Disp: 28 tablet Rfl: 3 diltiazem CD (CARDIZEM CD, CARTIA XT) 180 mg 24 hr capsule TAKE 1 CAPSULE BY MOUTH EVERY MORNING Disp: 28 capsule Rfl: 3 levothyroxine (SYNTHROID) 100 mcg tablet TAKE 1 TABLET BY MOUTH EVERY MORNING Disp: 28 tablet Rfl: 3 omeprazole (PRILOSEC) 20 mg capsule TAKE 1 CAPSULE BY MOUTH EVERY MORNING Disp: 28 capsule Rfl: 3 ELIQUIS 2.5 mg tab tab(s) TAKE 1 TABLET BY MOUTH TWICE A DAY Disp: 56 tablet Rfl: 2 nitroglycerin sublingual (NITROQUICK) 0.4 mg SL tablet DISSOLVE 1 TAB UNDER THE TONGUE NEEDED FOR CHEST PAIN EVERY 5 MINUTES UP TO 3 TIMES. IF NO RELIEF CALL 911. Disp: 25 tablet Rfl: 10 metoprolol tartrate, short acting, (LOPRESSOR) 50 mg tablet Take 1 tablet by mouth twice daily. Disp: Rfl: glucose 4 gram chewable tablet Take 4 tablets by mouth as needed for Low Blood Sugar. Disp: 10 tablet Rfl: 3 OXYGEN, HOME THERAPY, Inhale 3 L/min as instructed as directed. Disp: Rfl: 0 fluticasone (FLONASE) 50 mcg/actuation nasal spray Use 2 Sprays in each nostril once daily. Disp: 16 g Rfl: 5 metFORMIN ER (GLUCOPHAGE XR) 500 mg 24 hr tablet Take 2 tablets by mouth twice daily. Disp: 360 tablet Rfl: 3 DULoxetine (CYMBALTA) 60 mg capsule Take 1 capsule by mouth once daily. Disp: 90 capsule Rfl: 3 aspirin, enteric coated (ASPIRIN, ENTERIC COATED) 81 mg EC tablet Take 1 tablet by mouth every morning. Disp: 90 tablet Rfl: 3 furosemide (LASIX) 40 mg tablet Take 1 tablet by mouth twice daily. Disp: Rfl: albuterol HFA (VENTOLIN HFA) 90 mcg/actuation inhaler Inhale 2 Puffs as instructed every 4 hours as needed for Wheezing/Shortness of Breath. Disp: 1 Inhaler Rfl: 5 COMPOUNDED PRESCRIPTION Evaluation for diabetic shoes and inserts Dx: E11.65, Z79.4 Disp: 1 Each Rfl: 0 Incontinence Pad, Liner, Disp pads 1 Device as needed (urinary incontinence). Prevail incontinence pads. Dx: urinary incontinence. Size: small Disp: 200 Each Rfl: 11 Blood Pressure Cuff - Home Use BLOOD PRESSURE CUFF FOR HOME USE. DX: LABILE BLOOD PRESSURE Disp: 1 Device Rfl: 0 Blood-Glucose Meter (ONETOUCH ULTRA2) monitoring kit UAD to test blood sugar Disp: 1 Each Rfl: 0 Alcohol Swabs padm UAD to clean skin before testing blood sugar and injecting insulins. Disp: 300 Each Rfl: 5 No current facility-administered medications for this visit. ALLERGIES Allergen Reactions - Adhesive Tape (Adrienne* Intolerance Surgical tape leaves rash Irritates skin badly and blisters along with medical tape - Cats Other: See Comments Congested and itchy, difficulty breathing - Dogs Other: See Comments Congestion, sneezing, and difficulty breathing - Orphenadrine Unknown - Ciprofloxacin Other: See Comments Red, hot, itchy rash - Keflex [Cephalexin] Hives - Niacin Unknown - Niacin Preparations - Penicillin G - Penicillins Unknown - Reglan [Metoclopram* Other: See Comments Unable to sleep - Xanthines Unknown REVIEW OF SYSTEMS General: No weight loss, malaise or fevers. 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 No neurological symptoms or problems. Respiratory: COPD, Obstructive Sleep Apnea (on BiPAP), continue oxygen 3 L Cardiovascular: Hypertension requiring meds, PTCA / PCI, DVT, PE, Anticoagulation therapy, for A fib GI: GERD : No history of UTI in past 6 weeks. No history of renal failure. Not currently on or requiring dialysis. No history of symptoms or problems. LOG CUT OFF SAWYER: No vaginal bleeding due to menopause and no abnormal vaginal discharge. Endocrine: Diabetes Mellitus on insulin, Diabetes Mellitus on oral agent Hematology: No history of bleeding or clotting disorder. No history of hematological symptoms or problems. Oncology: h/o cervical cancer Psych: Depression Skin: Negative for lesions, rash, and itching. PHYSICAL EXAM VITALS: BP 97/72 Pulse 61 Temp (Src) 97.5 (Oral) Ht 5' 2 (1.58m) Wt 219 lb (99.3kg) SpO2 97[3L Oxygen]% BMI 40.05 kg/(m2). General: Alert and oriented, Morbidly obese, examined on wheelchair Skin: No rash, no lesions. HEENT: EOM, pupils equal, round and reactive. Nasal canula, short neck Cardiovascular: Normal S1 AND S2, no rubs, murmurs or gallops. No JVD. Pulse regular. Lungs: Normal breath sounds, no wheezes or crackles. Abdomen: Soft, non-tender, no rigidity. Extremities: trace edema or tenderness, no joint swelling or clubbing. Neurological: Normal cognition . Pulses: Carotid and radial pulses normal +2. ASSESSMENT Ms. Panda is a 63 year old female referred to me for preoperative evaluation. Patient has the following medical comorbidities which might affect the perioperative course: - Atrial fibrillation, rate well controlled and anticoagulated with Eliqes. - CAD of the port lions vessel. Status post PCI (2003). Stable with no angina at rest or exertion.. - Chronic Congestive Heart Failure due to ischemic cardiomyopathy which is compensated. - COPD with severe Emphysema. The patient is on home oxygen at 3 L/min all times of the day due to chronic respiratory failure. - CKD, Stage 3, due to diabetes AND hypertension. 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 Patient is on oral medications and insulin. - Hypertension, well controlled. - Patient is morbidly obese related to excessive caloric intake. Body mass index is 40.06 kg/m?. - Patient with sleep apnea and uses BiPAP. - Hypothyroidism: on meds - Depression Cardiac Cath 12/23/2017: Single vessel LCX, with collateral and very small occlusion, none obstructive coronary arteries Patient's RCRI (Revised Cardiac Risk Index: CAD/CHF/Stroke or TIA/SCr>2/DM on Insulin/High Risk Surgery) score is 3 and for CAD, chf,IDDM and is at elevated risk for major adverse cardiac events in the perioperative period. Diagnostic tests reviewed for today's visit: PENDING PLAN/RECOMMENDATIONS CARDIAC: High risk cardiac patient as above Currently asymptomatic Patient is at optimal cardiac condition for scheduled surgery / procedure. Continue the following medications uninterrupted in the perioperative period: baby aspirin, metoprolol, imduor, cardiazem Restart Clopidogrel and Eliquas as early as possible after surgery. PULMONARY: Patient is at increased risk for postoperative pulmonary complications. Suggest the following in the post-operative period: Continue bronchodilator medications, Aggressive bronchopulmonary hygiene, CPAP/BiPAP at home setting (advised patient to bring their CPAP/BiPAP machine/mask), Minimize sedation/opioids as patient has PARESH and Early ambulation ENDOCRINE: DIABETES: - Initiate [facility] Guidelines for perioperative diabetes management. Check finger stick glucose on the morning of surgery. - Patient has been instructed on Preoperative DM medication management. RENAL: - Suggest following in the postoperative period due to patient's pre-existing renal disease: Avoid nephrotoxic medications Dose medications on estimated serum creatinine clearance Monitor fluid balance closely and avoid hypotension. Avoid dehydration / volume depletion Monitor serum creatinine VASCULAR/ANTICOAGULATION: VTE prophylaxis as deemed appropriate by the surgical service. Patient is optimally prepared for surgery pending labs Patient Instructions: As per patient instructions section. General Preoperative/Medication/Fasting Instructions Preoperative Diabetes Medication Instructions I have discussed the above recommendations with the patient in detail, in thelma and lay terms, and provided a written summary of instructions as needed. We have discussed that no surgery is without risk, but that the goal of preoperative assessment is to optimize that risk, and that was clearly understood by the patient. I have given ample opportunity for the patient to ask questions, and answered all questions to their stated satisfaction. STAFF SIGNATURE: Krzysztof Goodwin MD, MSC, [facility] professor of geographypractical ministries professor, [facility], [facility] Staff, Department of Hospital Medicine Pager Number : [phone] January 23, 2018 11:26 AM CNOV Observed: 01/23/2018 Status: COMPLETED Source: [place] 10:45 AM [facility] REPOSITORY Office Visit (IMPAMN) TAMIA PANDA ([id number]) 1955 F Date Time Provider Department 01/23/18 10:45 AM KRZYSZTOF GOODWIN IMPAMN During your visit today, we recorded the following information about you: Temperature Pulse Blood pressure Weight 97.5 degrees 61/minute 97/72 99.3 kg Height 1.575 m Krzysztof Goodwin 01/23/2018 12:50 PM Signed HISTORY AND PHYSICAL EXAMINATION (IMPACT) SERVICE DATE: 01/23/2018 SERVICE TIME: 11:25 AM PRIMARY CARE PHYSICIAN: Nanda Oliveira () CHIEF COMPLAINT/HISTORY OF PRESENT ILLNESS: Ms. Panda is a 63 year old female referred to me for preoperative evaluation. My final recommendations will be communicated back to the requesting physician/surgeon by the way of the shared medical record. Referring Surgeon: Jefferson Mckay Date of Surgery: 01/30/18 Planned Surgery/Procedure: ENDOSCOPIC PER-ORAL PYLOROMYOTOMY Indication for Planned Surgery / Procedure: Gastroparesis Refer to Assessment section for details of any comorbidities. Patient is Able to Perform the Following Physical Activity: Take care of self; that is eating, dressing, bathing, using the toilet (2.75 METs) Patient denies any chest pain or undue shortness of breath with the above physical activity. physical limitation Patient's functional class is IV based on self-reported physical activity. Significant Anesthesia Considerations: None. PAST MEDICAL/SURGICAL/FAMILY/SOCIAL HISTORY PAST MEDICAL HISTORY Diagnosis Date - Acute chronic obstructive pulmonary disease with respiratory failure ([facility]) - AF (paroxysmal atrial fibrillation) ([facility]) - Anxiety - Arthritis Seeing Dr Elliott - Cervical cancer ([facility]) hysterectomy - CHF (congestive heart failure) ([facility]) - Chronic back pain Seeing Dr. Wallace - Constipation - COPD (chronic obstructive pulmonary disease) ([facility]) - Coronary atherosclerosis of port lions coronary artery Previously seeing Dr. Sosa - DDD (degenerative disc disease), lumbar - DM type 2 (diabetes mellitus, type 2) ([facility]) Seeing Dr. Foley for podiatry - DVT (deep venous thrombosis) ([facility]) Post op INA, BSO. - Dysphagia Seeing Dr. Beaulieu - Emphysema lung ([facility]) - Essential hypertension - Functional dyspepsia - Gastroparesis 2016 mild - GERD without esophagitis - Headache - History of colon polyps 11/28/2016 - Hyperlipidemia - Hypothyroidism - Incontinence Seeing Dr. Chapman - Morbid obesity ([facility]) - Muscle weakness - Nausea - PARESH on CPAP [facility], no longer using as of 10/2017, was not compliant - PE (pulmonary thromboembolism) ([facility]) Post op INA/BSO. - Pneumonia - RLS (restless legs syndrome) - Shortness of breath - Sleep apnea using oxygen currently, not on CPAP - Unsteadiness on feet - Wheezing PAST SURGICAL HISTORY Procedure Laterality Date - CHOLECYSTECTOMY - COLONOS W/REM POLYP SNARE 11/28/2016 Repeat 2019 - COLONOSCOPY Has had multiple in the past with polyps, cannot remember dates - EGD W/O BRSH SPECIMEN W/BX 11/28/2016 - HERNIA REPAIR HX multiple - KNEE SURGERY HX Left x3 for torn cartilage - NASAL SURGERY PROCEDURE sinus - TOTAL ABDOM HYSTERECTOMY 1988 Cervical cancer - TUBAL LIGATION HX - WRIST SURGERY HX Right ganglion cyst removal x2 FAMILY HISTORY Problem Relation Age of Onset - Coronary Artery Disease Mother - Coronary Artery Disease Father - Asthma Brother - Coronary Artery Disease Brother - Diabetes Sister - Hypertension Sister - Diabetes Sister - Heart Sister - Allergies Sister - Asthma Sister - Allergies Sister - Emphysema Sister Early stages - COPD Paternal Uncle SOCIAL HISTORYSocial History Marital status: Spouse name: Years of education: Number of children: Occupational History 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 Social History Main Topics Smoking status: Former Smoker Packs/day: 1.00 Years: 28.00 Types: Cigarettes Start date: 1978 Quit date: 09/22/2005 Smokeless tobacco: Never Used Comment: Father smoked in childhood. 2nd spouse smoked in home. Alcohol use: No Drug use: No Sexual activity: No Social History Narrative 1 year in current home. No basement, 1 parakeet. Room A/C. Electric baseboard heat. MEDICATIONS/ALLERGIES Current Outpatient Prescriptions: COMPOUNDED PRESCRIPTION Please fit for BiPAP mask. Disp: 1 Each Rfl: 0 insulin glargine (LANTUS SOLOSTAR U-100 INSULIN) 100 unit/mL (3 mL) inpn Inject 56 Units subcutaneously twice daily. Inject 56 units subcutaneously twice daily Disp: 45 mL Rfl: 0 ONETOUCH ULTRA BLUE TEST STRIP test strip USE DIRECTED TO CHECK BLOOD SUGAR 4-5 TIMES DAILY Disp: 150 Strip Rfl: 3 ONETOUCH DELICA LANCETS 30 gauge misc USE TO CHECK BLOOD SUGAR 4-5 TIMES DALIY Disp: 150 Each Rfl: 3 insulin glargine (LANTUS SOLOSTAR U-100 INSULIN) 100 unit/mL (3 mL) inpn Inject 56 units subcutaneously twice daily Disp: Rfl: BIPAP Bilevel PAP 15/11 cmH2O with 2 LPM oxygen bleed in, mask, tubing, filters, heated humidity, lifetime supplies. Please fax 30 day compliance download to [phone]. Dx: G47.33, G47.39. DME: [facility] Disp: 1 Device Rfl: 0 COMPOUNDED PRESCRIPTION OCD Titration for portable oxygen concentrator Oxygen Flow Rate between 2-6 liters. To keep oxygen saturation at or above 92%. Disp: 1 Each Rfl: 0 mupirocin (BACTROBAN) 2 % ointment Apply 1 application to affected area three times daily. Disp: 1 Tube Rfl: 0 promethazine (PHENERGAN) 25 mg tablet Take 1 tablet by mouth every 6 hours as needed. Disp: 20 tablet Rfl: 0 insulin lispro (HUMALOG KWIKPEN INSULIN) 200 unit/mL (3 mL) injection Inject subcutaneously 14 units with breakfast, 22 units with lunch, and 24 units with dinner (Patient taking differently: 14 Units. Inject subcutaneously 14 units with breakfast, 22 units with lunch, and 24 units with dinner ) Disp: 18 mL Rfl: 5 LYRICA 100 mg capsule TAKE 1 CAPSULE BY MOUTH THREE TIMES A DAY Disp: 84 capsule Rfl: 5 capsaicin (ZOSTRIX-HP) 0.075 % topical cream Apply 1 application to affected area four times daily. Disp: 60 g Rfl: 2 ULTICARE PEN NEEDLE 31 gauge x 5/16 ndle USE DIRECTED. TO INJECT INSULINS Disp: 200 Each Rfl: 5 VITAMIN C 500 mg tablet TAKE 1 TABLET BY MOUTH DAILY Disp: 30 tablet Rfl: 0 Ferrous Gluconate (FERGON) 324 mg (38 mg iron) tablet TAKE 1 TABLET BY MOUTH DAILY WITH BREAKFAST Disp: 30 tablet Rfl: 0 STOOL SOFTENER 100 mg capsule TAKE 1 CAPSULE BY MOUTH DAILY Disp: 28 capsule Rfl: 3 CLAUDIA-KYLE 8.6 mg tab TAKE 1 TABLET BY MOUTH TWICE A DAY Disp: 56 tablet Rfl: 3 isosorbide mononitrate ER (IMDUR) 60 mg 24 hr tablet Take 1.5 tablets by mouth once daily. In the morning Disp: 30 tablet Rfl: 11 atorvastatin (LIPITOR) 40 mg tablet TAKE 1 TABLET BY MOUTH DAILY Disp: 28 tablet Rfl: 3 diltiazem CD (CARDIZEM CD, CARTIA XT) 180 mg 24 hr capsule TAKE 1 CAPSULE BY MOUTH EVERY MORNING Disp: 28 capsule Rfl: 3 levothyroxine (SYNTHROID) 100 mcg tablet TAKE 1 TABLET BY MOUTH EVERY MORNING Disp: 28 tablet Rfl: 3 omeprazole (PRILOSEC) 20 mg capsule TAKE 1 CAPSULE BY MOUTH EVERY MORNING Disp: 28 capsule Rfl: 3 ELIQUIS 2.5 mg tab tab(s) TAKE 1 TABLET BY MOUTH TWICE A DAY Disp: 56 tablet Rfl: 2 nitroglycerin sublingual (NITROQUICK) 0.4 mg SL tablet DISSOLVE 1 TAB UNDER THE TONGUE NEEDED FOR CHEST PAIN EVERY 5 MINUTES UP TO 3 TIMES. IF NO RELIEF CALL 911. Disp: 25 tablet Rfl: 10 metoprolol tartrate, short acting, (LOPRESSOR) 50 mg tablet Take 1 tablet by mouth twice daily. Disp: Rfl: glucose 4 gram chewable tablet Take 4 tablets by mouth as needed for Low Blood Sugar. Disp: 10 tablet Rfl: 3 OXYGEN, HOME THERAPY, Inhale 3 L/min as instructed as directed. Disp: Rfl: 0 fluticasone (FLONASE) 50 mcg/actuation nasal spray Use 2 Sprays in each nostril once daily. Disp: 16 g Rfl: 5 metFORMIN ER (GLUCOPHAGE XR) 500 mg 24 hr tablet Take 2 tablets by mouth twice daily. Disp: 360 tablet Rfl: 3 DULoxetine (CYMBALTA) 60 mg capsule Take 1 capsule by mouth once daily. Disp: 90 capsule Rfl: 3 aspirin, enteric coated (ASPIRIN, ENTERIC COATED) 81 mg EC tablet Take 1 tablet by mouth every morning. Disp: 90 tablet Rfl: 3 furosemide (LASIX) 40 mg tablet Take 1 tablet by mouth twice daily. Disp: Rfl: albuterol HFA (VENTOLIN HFA) 90 mcg/actuation inhaler Inhale 2 Puffs as instructed every 4 hours as needed for Wheezing/Shortness of Breath. Disp: 1 Inhaler Rfl: 5 COMPOUNDED PRESCRIPTION Evaluation for diabetic shoes and inserts Dx: E11.65, Z79.4 Disp: 1 Each Rfl: 0 Incontinence Pad, Liner, Disp pads 1 Device as needed (urinary incontinence). Prevail incontinence pads. Dx: urinary incontinence. Size: small Disp: 200 Each Rfl: 11 Blood Pressure Cuff - Home Use BLOOD PRESSURE CUFF FOR HOME USE. DX: LABILE BLOOD PRESSURE Disp: 1 Device Rfl: 0 Blood-Glucose Meter (ONETOUCH ULTRA2) monitoring kit UAD to test blood sugar Disp: 1 Each Rfl: 0 Alcohol Swabs padm UAD to clean skin before testing blood sugar and injecting insulins. Disp: 300 Each Rfl: 5 No current facility-administered medications for this visit. ALLERGIES Allergen Reactions - Adhesive Tape (Adrienne* Intolerance Surgical tape leaves rash Irritates skin badly and blisters along with medical tape - Cats Other: See Comments Congested and itchy, difficulty breathing - Dogs Other: See Comments Congestion, sneezing, and difficulty breathing - Orphenadrine Unknown - Ciprofloxacin Other: See Comments Red, hot, itchy rash - Keflex [Cephalexin] Hives - Niacin Unknown - Niacin Preparations - Penicillin G - Penicillins Unknown - Reglan [Metoclopram* Other: See Comments Unable to sleep - Xanthines Unknown REVIEW OF SYSTEMS General: No weight loss, malaise or fevers. 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 No neurological symptoms or problems. Respiratory: COPD, Obstructive Sleep Apnea (on BiPAP), continue oxygen 3 L Cardiovascular: Hypertension requiring meds, PTCA / PCI, DVT, PE, Anticoagulation therapy, for A fib GI: GERD : No history of UTI in past 6 weeks. No history of renal failure. Not currently on or requiring dialysis. No history of symptoms or problems. LOG CUT OFF SAWYER: No vaginal bleeding due to menopause and no abnormal vaginal discharge. Endocrine: Diabetes Mellitus on insulin, Diabetes Mellitus on oral agent Hematology: No history of bleeding or clotting disorder. No history of hematological symptoms or problems. Oncology: h/o cervical cancer Psych: Depression Skin: Negative for lesions, rash, and itching. PHYSICAL EXAM VITALS: BP 97/72 Pulse 61 Temp (Src) 97.5 (Oral) Ht 5' 2 (1.58m) Wt 219 lb (99.3kg) SpO2 97[3L Oxygen]% BMI 40.05 kg/(m2). General: Alert and oriented, Morbidly obese, examined on wheelchair Skin: No rash, no lesions. HEENT: EOM, pupils equal, round and reactive. Nasal canula, short neck Cardiovascular: Normal S1 AND S2, no rubs, murmurs or gallops. No JVD. Pulse regular. Lungs: Normal breath sounds, no wheezes or crackles. Abdomen: Soft, non-tender, no rigidity. Extremities: trace edema or tenderness, no joint swelling or clubbing. Neurological: Normal cognition . Pulses: Carotid and radial pulses normal +2. ASSESSMENT Ms. Panda is a 63 year old female referred to me for preoperative evaluation. Patient has the following medical comorbidities which might affect the perioperative course: - Atrial fibrillation, rate well controlled and anticoagulated with Eliqes. - CAD of the port lions vessel. Status post PCI (2003). Stable with no angina at rest or exertion.. - Chronic Congestive Heart Failure due to ischemic cardiomyopathy which is compensated. - COPD with severe Emphysema. The patient is on home oxygen at 3 L/min all times of the day due to chronic respiratory failure. - CKD, Stage 3, due to diabetes AND hypertension. 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 Patient is on oral medications and insulin. - Hypertension, well controlled. - Patient is morbidly obese related to excessive caloric intake. Body mass index is 40.06 kg/m?. - Patient with sleep apnea and uses BiPAP. - Hypothyroidism: on meds - Depression Cardiac Cath 12/23/2017: Single vessel LCX, with collateral and very small occlusion, none obstructive coronary arteries Patient's RCRI (Revised Cardiac Risk Index: CAD/CHF/Stroke or TIA/SCr>2/DM on Insulin/High Risk Surgery) score is 3 and for CAD, chf,IDDM and is at elevated risk for major adverse cardiac events in the perioperative period. Diagnostic tests reviewed for today's visit: PENDING PLAN/RECOMMENDATIONS CARDIAC: High risk cardiac patient as above Currently asymptomatic Patient is at optimal cardiac condition for scheduled surgery / procedure. Continue the following medications uninterrupted in the perioperative period: baby aspirin, metoprolol, imduor, cardiazem Restart Clopidogrel and Eliquas as early as possible after surgery. PULMONARY: Patient is at increased risk for postoperative pulmonary complications. Suggest the following in the post-operative period: Continue bronchodilator medications, Aggressive bronchopulmonary hygiene, CPAP/BiPAP at home setting (advised patient to bring their CPAP/BiPAP machine/mask), Minimize sedation/opioids as patient has PARESH and Early ambulation ENDOCRINE: DIABETES: - Initiate [facility] Guidelines for perioperative diabetes management. Check finger stick glucose on the morning of surgery. - Patient has been instructed on Preoperative DM medication management. RENAL: - Suggest following in the postoperative period due to patient's pre-existing renal disease: Avoid nephrotoxic medications Dose medications on estimated serum creatinine clearance Monitor fluid balance closely and avoid hypotension. Avoid dehydration / volume depletion Monitor serum creatinine VASCULAR/ANTICOAGULATION: VTE prophylaxis as deemed appropriate by the surgical service. Patient is optimally prepared for surgery pending labs Patient Instructions: As per patient instructions section. General Preoperative/Medication/Fasting Instructions Preoperative Diabetes Medication Instructions I have discussed the above recommendations with the patient in detail, in thelma and lay terms, and provided a written summary of instructions as needed. We have discussed that no surgery is without risk, but that the goal of preoperative assessment is to optimize that risk, and that was clearly understood by the patient. I have given ample opportunity for the patient to ask questions, and answered all questions to their stated satisfaction. STAFF SIGNATURE: Krzysztof Goodwin MD, MSC, M, FACP professor of geographypractical ministries professor, [facility], [facility] Staff, Department of Hospital Medicine Pager Number : [phone] January 23, 2018 11:26 AM Sara Baker Ma 01/23/2018 12:50 PM Signed Tamia Panda is a 63 year old female here today for visit in [facility] Referring Surgeon: Dr. Connolly Date of Surgery: 01/30/2018 Planned Surgery/Procedure: ENDOSCOPIC PER-ORAL PYLO Allergies have been reviewed and verified. They include the following: Adhesive Tape (Rosins); Cats; Dogs; Orphenadrine; Ciprofloxacin; Keflex [Cephalexin]; Niacin; Niacin Preparations; Penicillin G; Penicillins; Reglan [Metoclopramide Hcl]; Xanthines Social History Substance Use Topics - Smoking status: Former Smoker Packs/day: 1.00 Years: 28.00 Types: Cigarettes Start date: 1978 Quit date: 09/22/2005 - Smokeless tobacco: Never Used Comment: Father smoked in childhood. 2nd spouse smoked in home. - Alcohol use No Medications reviewed and updated: Yes Krzysztof Turner Ma 01/23/2018 12:[address] [facility] Patient Instructions for Surgery FOOD INSTRUCTIONS: NO solid food or non-clear liquids for 8 hours prior to the arrival time for your surgery. Unless you are instructed otherwise, you are allowed to drink up to 12 ounces of clear liquids (e.g. water, black tea/coffee, fruit juice without pulp, Saul Robert, etc.) up until 2 hours prior to the arrival time for surgery. MEDICATION INSTRUCTIONS: Prior to Surgery: Do not take the following medications for 7 days prior to surgery: - any NSAID's (e.g. Motrin, Aleve, Arthrotec, Naproxen,etc) - any herbal preparations - Plavix Do not take any Vitamin E / multivitamins for 10-14 days before surgery You are allowed to take Tylenol if needed until the day of surgery. Please bring your inhalers and or CPAP/BiPAP machine and mask when you come for your surgery. Do NOT STOP YOUR ASPIRIN as you have a cardiac/coronary stent. Continue all medications until the night prior to surgery Stop ELIQUIS 2 days prior to your surgery You will take 56 units of insulin glargine (LANTUS SOLOSTAR ) as usual the night before the surgery and will take 28 units only on the morning of your surgery MEDICATION INSTRUCTIONS: Day/Morning of Surgery: The following medications should be taken with sips of water: LYRICA, IMDUR, CARDIZEM , LIPITOR, levothyroxine , metoprolol tartrate, CYMBALTA Use your inhalers as needed / prescribed on day of surgery. Bring your inhaler with you to the hospital. You will skip LASIX, metFORMIN on the morning of your surgery only DIABETES MANAGEMENT INSTRUCTIONS: Eat a usual diet until the day prior to surgery unless indicated by your surgeon/physician. If your blood sugar is below 70 mg/dl at any time, treat with ? cup of apple juice or saul robert, or 4 glucose tabs or 1 tube of oral glucose gel. MEDICATION INSTRUCTIONS: Prior to Surgery: ? Continue all diabetic pills as scheduled including the evening prior to surgery. ? Continue your current injectable medications (eg: insulin, symlin, byetta, etc) as scheduled INCLUDING EVENING AND BEDTIME. MEDICATION INSTRUCTIONS: Day/Morning of Surgery: ? Do not take your Diabetic pills. ? GLARGINE/LANTUS: Take half of your usual dose of Lantus Insulin (28 units) If you have any questions or concerns regarding today's visit please do not hesitate to contact the [facility] at [phone] or [phone], ext [phone]. STAFF SIGNATURE: Krzysztof Goodwin MD, MSC, M, FACP professor of geographypractical ministries professor, [facility], [facility] Staff, Department of Hospital Medicine January 23, 2018 12:24 PM Referring Provider: JEFFERSON CONNOLLY [[id number]] Allergies As of Date: 01/23/2018 Noted Allergy Reaction ADHESIVE TAPE (ROSINS) 04/04/2015 5 - Intolerance Comments: Surgical tape leaves rash Irritates skin badly and blisters along with medical tape CATS 04/10/2016 14 - Other: See Comments Comments: Congested and itchy, difficulty breathing DOGS 04/10/2016 14 - Other: See Comments Comments: Congestion, sneezing, and difficulty breathing ORPHENADRINE 04/10/2016 16 - Unknown CIPROFLOXACIN 12/11/2011 14 - Other: See Comments Comments: Red, hot, itchy rash KEFLEX (CEPHALEXIN) 07/10/2016 4 - Hives NIACIN 04/04/2015 16 - Unknown NIACIN PREPARATIONS 10/18/2004 PENICILLIN G 10/18/2004 PENICILLINS 04/04/2015 16 - Unknown REGLAN (METOCLOPRAMIDE HCL) 03/04/2017 14 - Other: See Comments Comments: Unable to sleep XANTHINES 10/18/2004 16 - Unknown Date Reviewed: 01/23/2018 Reviewed by: Sara Baker Ma - Fully Assessed Primary Visit Diagnosis:Gastroparesis [K31.84] Other Visit Diagnoses:Pre-operative examination [Z01.818] Chronic congestive heart failure, unspecified heart failure type (HCC) [I50.9] Morbid obesity ([facility]) [E66.01] Hypothyroidism, unspecified type [E03.9] Essential hypertension [I10] 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 ([facility]) [I25.118] AF (paroxysmal atrial fibrillation) ([facility]) [I48.0] Chronic obstructive pulmonary disease, unspecified COPD type ([facility]) [J44.9] GERD without esophagitis [K21.9] Hyperlipidemia, unspecified hyperlipidemia type [E78.5] PARESH treated with BiPAP [G47.33] S/P coronary artery stent placement [Z95.5] Stage 3 chronic kidney disease [N18.3] Depression, unspecified depression type [F32.9] Prescriptions as of 01/23/2018 Sig: ONETOUCH ULTRA BLUE TEST STRIP USE DIRECTED TO CHECK BLOO* ONETOUCH DELICA LANCETS 30 GA* USE TO CHECK BLOOD SUGAR 4-5 * INSULIN GLARGINE (U-100) 100 * Inject 56 units subcutaneousl* COMPOUNDED PRESCRIPTION OCD Titration for portable ox* PROMETHAZINE 25 MG TABLET Take 1 tablet by mouth every * INSULIN LISPRO (U-200) 200 UN* Inject subcutaneously 14 unit* Patient taking differently: 14 Units. Inject subcutaneous* LYRICA 100 MG CAPSULE TAKE 1 CAPSULE BY MOUTH THREE* CAPSAICIN 0.075 % TOPICAL CRE* Apply 1 application to affect* ULTICARE PEN NEEDLE 31 GAUGE * USE DIRECTED. TO INJECT IN* VITAMIN C 500 MG TABLET TAKE 1 TABLET BY MOUTH DAILY STOOL SOFTENER 100 MG CAPSULE TAKE 1 CAPSULE BY MOUTH DAILY CLAUDIA-KYLE 8.6 MG TABLET TAKE 1 TABLET BY MOUTH TWICE * ISOSORBIDE MONONITRATE ER 60 * Take 1.5 tablets by mouth onc* ATORVASTATIN 40 MG TABLET TAKE 1 TABLET BY MOUTH DAILY DILTIAZEM SR 180 MG 24 HR CAP TAKE 1 CAPSULE BY MOUTH EVERY* LEVOTHYROXINE 100 MCG TABLET TAKE 1 TABLET BY MOUTH EVERY * OMEPRAZOLE 20 MG CAPSULE,MARIA EUGENIA* TAKE 1 CAPSULE BY MOUTH EVERY* ELIQUIS 2.5 MG TABLET TAKE 1 TABLET BY MOUTH TWICE * NITROGLYCERIN 0.4 MG SUBLINGU* DISSOLVE 1 TAB UNDER THE TONG* METOPROLOL TARTRATE 50 MG TAB* Take 1 tablet by mouth twice * GLUCOSE 4 GRAM CHEWABLE TABLET Take 4 tablets by mouth as ne* OXYGEN (HOME THERAPY) Inhale 3 L/min as instructed * FLUTICASONE 50 MCG/ACTUATION * Use 2 Sprays in each nostril * METFORMIN ER 500 MG TABLET,EX* Take 2 tablets by mouth twice* DULOXETINE 60 MG CAPSULE,MARIA EUGENIA* Take 1 capsule by mouth once * ASPIRIN 81 MG TABLET,DELAYED * Take 1 tablet by mouth every * FUROSEMIDE 40 MG TABLET Take 1 tablet by mouth twice * ALBUTEROL SULFATE HFA 90 MCG/* Inhale 2 Puffs as instructed * COMPOUNDED PRESCRIPTION Evaluation for diabetic shoes* INCONTINENCE PAD, LINER, DISP* 1 Device as needed (urinary i* COMPOUNDED PRESCRIPTION BLOOD PRESSURE CUFF FOR HOME * BLOOD-GLUCOSE METER KIT UAD to test blood sugar ALCOHOL SWABS UAD to clean skin before test* COMPOUNDED PRESCRIPTION Please fit for BiPAP mask. INSULIN GLARGINE (U-100) 100 * Inject 56 Units subcutaneousl* BIPAP Bilevel PAP 15/11 cmH2O with * Patient not taking: Reported on 01/23/2018 MUPIROCIN 2 % TOPICAL OINTMENT Apply 1 application to affect* FERROUS GLUCONATE 324 MG (38 * TAKE 1 TABLET BY MOUTH DAILY * Problem List As Of Date 01/23/2018 Noted Resolved SUBJECTIVE TINNITUS [H93.19] INVALID FOR* PARESH treated with BiPAP [G47.33] INVALID FOR* Hyperlipidemia [E78.5] INVALID FOR* Coronary disease [I25.10] INVALID FOR* Diabetes mellitus, type II (HCC) [E11.9] INVALID FOR* Morbid obesity (HCC) [E66.01] Hypothyroidism [E03.9] Anxiety [F41.9] Sleep apnea [G47.30] 02/14/2017 Essential hypertension [I10] Coronary artery disease of port lions artery of stoney* AF (paroxysmal atrial fibrillation) ([facility]) [I48.* COPD (chronic obstructive pulmonary disease) (H* GERD without esophagitis [K21.9] Dysphagia [R13.10] Constipation [K59.00] DM type 2 (diabetes mellitus, type 2) ([facility]) [E1* 02/14/2017 Shortness of breath [R06.02] 02/14/2017 Arthritis [M19.90] More... CHF (congestive heart failure) ([facility]) [I50.9] BPPV (benign paroxysmal positional vertigo) [H8*INVALID FOR* RLS (restless legs syndrome) [G25.81] INVALID FOR* Iron deficiency concern: RE RLS [E61.1] INVALID FOR* Tubular adenoma [D36.9] INVALID FOR* Incontinence [R32] More... Gastroparesis [K31.84] INVALID FOR* Pre-op testing [Z01.818] INVALID FOR* More... Hypercapnia [R06.89] INVALID FOR* S/P coronary artery stent placement [Z95.5] INVALID FOR* Stage 3 chronic kidney disease [N18.3] INVALID FOR* Depression [F32.9] INVALID FOR* Other instructions from your clinician: [facility] Patient Instructions for Surgery FOOD INSTRUCTIONS: NO solid food or non-clear liquids for 8 hours prior to the arrival time for your surgery. Unless you are instructed otherwise, you are allowed to drink up to 12 ounces of clear liquids (e.g. water, black tea/coffee, fruit juice without pulp, Saul Robert, etc.) up until 2 hours prior to the arrival time for surgery. MEDICATION INSTRUCTIONS: Prior to Surgery: Do not take the following medications for 7 days prior to surgery: - any NSAID's (e.g. Motrin, Aleve, Arthrotec, Naproxen,etc) - any herbal preparations - Plavix Do not take any Vitamin E / multivitamins for 10-14 days before surgery You are allowed to take Tylenol if needed until the day of surgery. Please bring your inhalers and or CPAP/BiPAP machine and mask when you come for your surgery. Do NOT STOP YOUR ASPIRIN as you have a cardiac/coronary stent. Continue all medications until the night prior to surgery Stop ELIQUIS 2 days prior to your surgery You will take 56 units of insulin glargine (LANTUS SOLOSTAR ) as usual the night before the surgery and will take 28 units only on the morning of your surgery MEDICATION INSTRUCTIONS: Day/Morning of Surgery: The following medications should be taken with sips of water: LYRICA, IMDUR, CARDIZEM , LIPITOR, levothyroxine , metoprolol tartrate, CYMBALTA Use your inhalers as needed / prescribed on day of surgery. Bring your inhaler with you to the hospital. You will skip LASIX, metFORMIN on the morning of your surgery only DIABETES MANAGEMENT INSTRUCTIONS: Eat a usual diet until the day prior to surgery unless indicated by your surgeon/physician. If your blood sugar is below 70 mg/dl at any time, treat with ? cup of apple juice or saul robert, or 4 glucose tabs or 1 tube of oral glucose gel. MEDICATION INSTRUCTIONS: Prior to Surgery: ? Continue all diabetic pills as scheduled including the evening prior to surgery. ? Continue your current injectable medications (eg: insulin, symlin, byetta, etc) as scheduled INCLUDING EVENING AND BEDTIME. MEDICATION INSTRUCTIONS: Day/Morning of Surgery: ? Do not take your Diabetic pills. ? GLARGINE/LANTUS: Take half of your usual dose of Lantus Insulin (28 units) If you have any questions or concerns regarding today's visit please do not hesitate to contact the [facility] at [phone] or [phone], [phone]. STAFF SIGNATURE: Krzysztof Goodwin MD, MSC, M, FACP professor of geographypractical ministries professor, [facility], [facility] Staff, Department of Hospital Medicine January 23, 2018 12:24 PM Encounter Status:Closed by KRZYSZTOF GOODWIN MD on 01/23/18 PROGRESS Observed: 01/22/2018 Status: COMPLETED Source: RUSSELL 9:03 AM [facility] REPOSITORY HNO ID: [id number] Author: Lizette Acosta Service: (none) Author Type: Physician Plant Controls Specialist Type: Progress Notes Filed: 01/22/2018 9:48 AM Note Text: [facility] [place], 05/03/18: INTERVAL HISTORY: Tamia Panda is a 62 year old female who presents here today secondary to hypercapnia, evaluation of COPD and hemoptysis. PMH: PARESH, noncompliant, PE, Hypothyroidism, Hyperlipidemia, GERD, HTN, DM, CAD. Former smoker, quit 2005. 28 pack years. Patient recently admitted to [facility] secondary to altered mental status with unknown etiology. Patient found to have significant elevation of PCO2 on ABG of 64. Her baseline is 40-55. Repeat ABG with PCO2 of 48. Today, patient states she is feeling much better. Not much cough. No sputum. No hemoptysis currently. Previously had a few episodes of hemoptysis. No pleuritic chest pain. Feels like she has fluid in her chest and tries to cough to move it out. Exertional dyspnea. Ambulates with cane. Wheezing with laying down. No lower extremity edema. No fevers or chills. Patient currently does not have BiPAP. States they came and got it because I didn't wear it. Previously instructed to wear BiPAP 06/08 with 2 L O2 at night. Wearing supplemental oxygen continuously 3 L. However, she does not have it with her in the office today. [facility] ROS: General: Generally feels better. Appetite fair. Weight stable. Eyes, Ears, nose, throat: No post nasal drip, rhinorrhea, purulent nasal discharge, epistaxis. No hoarseness. Vision stable. Cardiac: No angina, edema. 2 pillow orthopnea. GI: No heartburn. Dysphagia with corn and spaghetti. Feels full quickly. Uro/LOG CUT OFF SAWYER: No dysuria, hesitancy, nocturia. Musculoskeletal: Chronic pain. Neuro: No headache, focal weakness, tremor, confusion. Skin: No rash. Otherwise negative. Allergies reviewed and updated, and medications reconciled today. Immunization History Administered Date(s) Administered Influenza Seasonal Inj Age 3+ 07/04/2014 07/16/2015 Influenza Seasonal Inj Quadrivalent Age 3+ 06/19/2017 Pneumococcal Vac Conjugate(#7 thru DECEMBER 2009 then #13 thereafter) 01/06/2008 Pneumococcal-13 Vac Conjugate 02/27/2015 Pneumovax 06/22/2010 Tdap (Age 7+) 10/02/2016 Zostavax 01/14/2017 PMH: Reviewed with patient today. No changes. FAMH: Reviewed with patient today. No changes. SOCH: No changes. PHYSICAL EXAMINATION: BP 134/84 Pulse 83 Resp 18 SpO2 92% O2: RA. Gen: No acute distress. Cooperative with examination. ENT: Sclerae clear. Nares clear. Oral hygeine/dentition poor. Pharynx clear. No halitosis. Resp: No stridor, accessory respiratory muscle use, supra- sternal or intercostal retractions. No crackles, wheezes, rubs. CV: Regular rythm. Heart tones normal. Abd: Non distended. MSK: Severe kyphoscoliosis. No joint deformities. Ext: Warm and well perfused. No clubbing, cyanosis, edema. No sclerodactyly. No Raynaud's. Skin: Color normal. Texture normal. No rash, eczema, urticaria, petechiae, telangiectasia, ecchymoses. Lymph: No adenopathy in neck, supra-clavicular fossae. Endo: No goiter, exophthalmos, onycholysis. Neuro: Mental status normal. Affect normal. Muscle tone normal. No tremor. DATA REVIEW: I have reviewed inpatient medical records, including labs, tests, and procedures. IMPRESSION AND RECOMMENDATIONS: 1. Hypercapnia. -It is imperative that you wear your BiPAP nightly as directed. -Will contact DME for mask fitting. Patient had a previous traumatic experience with a mask being placed over her mouth and has difficulty with wearing a mask. 2. PARESH. -Sleep study ordered. -To follow up with Dr. Middleton. 3. Dyspnea. -Will check lung function testing and oximetry with ambulation. Further recommendations to follow. 4. Hypoxia. -Continue to wear 3L supplemental oxygen continuously as directed. I addressed the questions of the patient, and she expressed understanding and acceptance of my answers. Lizette Acosta PA-C [facility] [place] [facility] [place] [address] [place] [address] CNOV Observed: 01/22/2018 Status: COMPLETED Source: RUSSELL 9:00 AM [facility] REPOSITORY Office Visit (PULMWS) TAMIA PANDA ([id number]) 1955 F Date Time Provider Department 01/22/18 9:00 AM LIZETTE ACOSTA During your visit today, we recorded the following information about you: Pulse Respiration Blood pressure 83/minute 18/minute 134/84 Lizette Acosta PA-C 01/22/2018 9:48 AM Signed [facility] [place], 01/22/18: INTERVAL HISTORY: Tamia Panda is a 62 year old female who presents here today secondary to hypercapnia, evaluation of COPD and hemoptysis. PMH: PARESH, noncompliant, PE, Hypothyroidism, Hyperlipidemia, GERD, HTN, DM, CAD. Former smoker, quit 2005. 28 pack years. Patient recently admitted to [facility] secondary to altered mental status with unknown etiology. Patient found to have significant elevation of PCO2 on ABG of 64. Her baseline is 40-55. Repeat ABG with PCO2 of 48. Today, patient states she is feeling much better. Not much cough. No sputum. No hemoptysis currently. Previously had a few episodes of hemoptysis. No pleuritic chest pain. Feels like she has fluid in her chest and tries to cough to move it out. Exertional dyspnea. Ambulates with cane. Wheezing with laying down. No lower extremity edema. No fevers or chills. Patient currently does not have BiPAP. States they came and got it because I didn't wear it. Previously instructed to wear BiPAP 06/08 with 2 L O2 at night. Wearing supplemental oxygen continuously 3 L. However, she does not have it with her in the office today. D[facility]: [facility]. ROS: General: Generally feels better. Appetite fair. Weight stable. Eyes, Ears, nose, throat: No post nasal drip, rhinorrhea, purulent nasal discharge, epistaxis. No hoarseness. Vision stable. Cardiac: No angina, edema. 2 pillow orthopnea. GI: No heartburn. Dysphagia with corn and spaghetti. Feels full quickly. Uro/LOG CUT OFF SAWYER: No dysuria, hesitancy, nocturia. Musculoskeletal: Chronic pain. Neuro: No headache, focal weakness, tremor, confusion. Skin: No rash. Otherwise negative. Allergies reviewed and updated, and medications reconciled today. Immunization History Administered Date(s) Administered Influenza Seasonal Inj Age 3+ 07/04/2014 07/16/2015 Influenza Seasonal Inj Quadrivalent Age 3+ 06/19/2017 Pneumococcal Vac Conjugate(#7 thru DECEMBER 2009 then #13 thereafter) 01/06/2008 Pneumococcal-13 Vac Conjugate 02/27/2015 Pneumovax 06/22/2010 Tdap (Age 7+) 10/02/2016 Zostavax 01/14/2017 PMH: Reviewed with patient today. No changes. FAMH: Reviewed with patient today. No changes. SOCH: No changes. PHYSICAL EXAMINATION: BP 134/84 Pulse 83 Resp 18 SpO2 92% O2: RA. Gen: No acute distress. Cooperative with examination. ENT: Sclerae clear. Nares clear. Oral hygeine/dentition poor. Pharynx clear. No halitosis. Resp: No stridor, accessory respiratory muscle use, supra- sternal or intercostal retractions. No crackles, wheezes, rubs. CV: Regular rythm. Heart tones normal. Abd: Non distended. MSK: Severe kyphoscoliosis. No joint deformities. Ext: Warm and well perfused. No clubbing, cyanosis, edema. No sclerodactyly. No Raynaud's. Skin: Color normal. Texture normal. No rash, eczema, urticaria, petechiae, telangiectasia, ecchymoses. Lymph: No adenopathy in neck, supra-clavicular fossae. Endo: No goiter, exophthalmos, onycholysis. Neuro: Mental status normal. Affect normal. Muscle tone normal. No tremor. DATA REVIEW: I have reviewed inpatient medical records, including labs, tests, and procedures. IMPRESSION AND RECOMMENDATIONS: 1. Hypercapnia. -It is imperative that you wear your BiPAP nightly as directed. -Will contact DME for mask fitting. Patient had a previous traumatic experience with a mask being placed over her mouth and has difficulty with wearing a mask. 2. PARESH. -Sleep study ordered. -To follow up with Dr. Middleton. 3. Dyspnea. -Will check lung function testing and oximetry with ambulation. Further recommendations to follow. 4. Hypoxia. -Continue to wear 3L supplemental oxygen continuously as directed. I addressed the questions of the patient, and she expressed understanding and acceptance of my answers. Lizette Acosta PA-C [facility] [place] [facility] [place] [id number] Lizette Acosta PA-C 01/22/2018 9:47 AM Signed 1. Hypercapnia. -It is imperative that you wear your BiPAP nightly as directed. -Will contact DME for mask fitting. Patient had a previous traumatic experience with a mask being placed over her mouth and has difficulty with wearing a mask. 2. PARESH. -Sleep study ordered. -To follow up with Dr. Middleton. 3. Dyspnea. -Will check lung function testing and oximetry with ambulation. Further recommendations to follow. 4. Hypoxia. -Continue to wear 3L supplemental oxygen continuously as directed. Referring Provider: NANDA OLIVEIRA) [[id number]] Allergies As of Date: 01/22/2018 Noted Allergy Reaction ADHESIVE TAPE (ROSINS) 04/04/2015 5 - Intolerance Comments: Surgical tape leaves rash Irritates skin badly and blisters along with medical tape CATS 04/10/2016 14 - Other: See Comments Comments: Congested and itchy, difficulty breathing DOGS 04/10/2016 14 - Other: See Comments Comments: Congestion, sneezing, and difficulty breathing ORPHENADRINE 04/10/2016 16 - Unknown CIPROFLOXACIN 12/11/2011 14 - Other: See Comments Comments: Red, hot, itchy rash KEFLEX (CEPHALEXIN) 07/10/2016 4 - Hives NIACIN 04/04/2015 16 - Unknown NIACIN PREPARATIONS 10/18/2004 PENICILLIN G 10/18/2004 PENICILLINS 04/04/2015 16 - Unknown REGLAN (METOCLOPRAMIDE HCL) 03/04/2017 14 - Other: See Comments Comments: Unable to sleep XANTHINES 10/18/2004 16 - Unknown Date Reviewed: 01/22/2018 Reviewed by: Lizette Acosta - Fully Assessed Reason for Visit: Established Patient [175] Cmt: COPD Primary Visit Diagnosis:Dyspnea and respiratory abnormalities [R06.00, R06.89] Other Visit Diagnoses:Hypercapnia [R06.89] Hypoxia [R09.02] PARESH (obstructive sleep apnea) [G47.33] Order(s):SPIROMETRY WITH DILATOR IF OBSTRUCTED [9187536] Order #: [id number] FUTURE OXIMETRY WITH AMBULATION [] Order #: [id number] FUTURE LUNG VOLUMES [[id number]] Order #: [id number] FUTURE LUNG DIFFUSION CAPACITY (DLCO) [[id number]] Order #: [id number] FUTURE COMPOUNDED PRESCRIPTIONPlease fit for BiPAP mask.Disp: 1 EachRfl: 0 Prescriptions as of 01/22/2018 Sig: INSULIN GLARGINE (U-100) 100 * Inject 56 Units subcutaneousl* ONETOUCH ULTRA BLUE TEST STRIP USE DIRECTED TO CHECK BLOO* ONETOUCH DELICA LANCETS 30 GA* USE TO CHECK BLOOD SUGAR 4-5 * INSULIN GLARGINE (U-100) 100 * Inject 56 units subcutaneousl* MUPIROCIN 2 % TOPICAL OINTMENT Apply 1 application to affect* PROMETHAZINE 25 MG TABLET Take 1 tablet by mouth every * INSULIN LISPRO (U-200) 200 UN* Inject subcutaneously 14 unit* Patient taking differently: 14 Units. Inject subcutaneous* LYRICA 100 MG CAPSULE TAKE 1 CAPSULE BY MOUTH THREE* CAPSAICIN 0.075 % TOPICAL CRE* Apply 1 application to affect* ULTICARE PEN NEEDLE 31 GAUGE * USE DIRECTED. TO INJECT IN* VITAMIN C 500 MG TABLET TAKE 1 TABLET BY MOUTH DAILY FERROUS GLUCONATE 324 MG (38 * TAKE 1 TABLET BY MOUTH DAILY * STOOL SOFTENER 100 MG CAPSULE TAKE 1 CAPSULE BY MOUTH DAILY CLAUDIA-KYLE 8.6 MG TABLET TAKE 1 TABLET BY MOUTH TWICE * ISOSORBIDE MONONITRATE ER 60 * Take 1.5 tablets by mouth onc* ATORVASTATIN 40 MG TABLET TAKE 1 TABLET BY MOUTH DAILY DILTIAZEM SR 180 MG 24 HR CAP TAKE 1 CAPSULE BY MOUTH EVERY* LEVOTHYROXINE 100 MCG TABLET TAKE 1 TABLET BY MOUTH EVERY * OMEPRAZOLE 20 MG CAPSULE,MARIA EUGENIA* TAKE 1 CAPSULE BY MOUTH EVERY* ELIQUIS 2.5 MG TABLET TAKE 1 TABLET BY MOUTH TWICE * NITROGLYCERIN 0.4 MG SUBLINGU* DISSOLVE 1 TAB UNDER THE TONG* METOPROLOL TARTRATE 50 MG TAB* Take 1 tablet by mouth twice * GLUCOSE 4 GRAM CHEWABLE TABLET Take 4 tablets by mouth as ne* FLUTICASONE 50 MCG/ACTUATION * Use 2 Sprays in each nostril * METFORMIN ER 500 MG TABLET,EX* Take 2 tablets by mouth twice* DULOXETINE 60 MG CAPSULE,MARIA EUGENIA* Take 1 capsule by mouth once * ASPIRIN 81 MG TABLET,DELAYED * Take 1 tablet by mouth every * FUROSEMIDE 40 MG TABLET Take 1 tablet by mouth twice * ALBUTEROL SULFATE HFA 90 MCG/* Inhale 2 Puffs as instructed * COMPOUNDED PRESCRIPTION Evaluation for diabetic shoes* INCONTINENCE PAD, LINER, DISP* 1 Device as needed (urinary i* COMPOUNDED PRESCRIPTION BLOOD PRESSURE CUFF FOR HOME * BLOOD-GLUCOSE METER KIT UAD to test blood sugar ALCOHOL SWABS UAD to clean skin before test* COMPOUNDED PRESCRIPTION Please fit for BiPAP mask. BIPAP Bilevel PAP 15/11 cmH2O with * COMPOUNDED PRESCRIPTION OCD Titration for portable ox* OXYGEN (HOME THERAPY) Inhale 3 L/min as instructed * Medication notes this encounter BIPAP >> Lizette Acosta PA-C 01/22/2018 9:17 AM >> LIZETTE ACOSTA January 22, 2018 9:17 AM Currently not wearing. Problem List As Of Date 01/22/2018 Noted Resolved SUBJECTIVE TINNITUS [H93.19] INVALID FOR* Obstructive sleep apnea [G47.33] INVALID FOR* Hyperlipidemia [E78.5] INVALID FOR* Coronary disease [I25.10] INVALID FOR* Diabetes mellitus, type II ([facility]) [E11.9] INVALID FOR* Morbid obesity ([facility]) [E66.01] Hypothyroidism [E03.9] Anxiety [F41.9] Sleep apnea [G47.30] 02/14/2017 Essential hypertension [I10] Coronary artery disease of [place] artery of [place]* AF (paroxysmal atrial fibrillation) ([facility]) [I48.* COPD (chronic obstructive pulmonary disease) (H* GERD without esophagitis [K21.9] Dysphagia [R13.10] Constipation [K59.00] DM type 2 (diabetes mellitus, type 2) ([facility]) [E1* 02/14/2017 Shortness of breath [R06.02] 02/14/2017 Arthritis [M19.90] More... CHF (congestive heart failure) ([facility]) [I50.9] BPPV (benign paroxysmal positional vertigo) [H8*INVALID FOR* RLS (restless legs syndrome) [G25.81] INVALID FOR* Iron deficiency concern: RE RLS [E61.1] INVALID FOR* Tubular adenoma [D36.9] INVALID FOR* Incontinence [R32] More... Gastroparesis [K31.84] INVALID FOR* Pre-op testing [Z01.818] INVALID FOR* More... Hypercapnia [R06.89] INVALID FOR* Other instructions from your clinician: 1. Hypercapnia. -It is imperative that you wear your BiPAP nightly as directed. -Will contact DME for mask fitting. Patient had a previous traumatic experience with a mask being placed over her mouth and has difficulty with wearing a mask. 2. PARESH. -Sleep study ordered. -To follow up with Dr. Middleton. 3. Dyspnea. -Will check lung function testing and oximetry with ambulation. Further recommendations to follow. 4. Hypoxia. -Continue to wear 3L supplemental oxygen continuously as directed. Prescriptions ordered this encounter Disp Refills Start End COMPOUNDED PRESCRIPTION 1 Ea* 0 01/22/2018 Class: Print RX Sig: Please fit for BiPAP mask. Disposition: Return in about 4 weeks (around 02/19/2018). Follow-up and Disposition History Recorded Encounter Status:Closed by LIZETTE ACOSTA on 01/22/18 PROGRESS Observed: 01/19/2018 Status: COMPLETED Source: RUSSELL 1:49 PM [facility] REPOSITORY HNO ID: [id number] Author: Saad Allen) Larry Service: (none) Author Type: Registered Nurse Type: Progress Notes Filed: 01/19/2018 1:51 PM Note Text: Spoke with Dr. Middleton's nurse and PCP, order for sleep titration faxed to [facility], PCP will write initial order and pt will f/u 60-90 days after restarting BIPAP with Dr. Middleton in April. Saad Silvestre RN PROGRESS Observed: 2018 Status: COMPLETED Source: RUSSELL 2:29 PM [facility] REPOSITORY HNO ID: [id number] Author: Saad Allen) Larry Service: (none) Author Type: Registered Nurse Type: Progress Notes Filed: 01/19/2018 1:51 PM Note Text: TC to patient, discussed having to repeat sleep study and discussed scheduling with Dr. Amador sooner than April with Dr. Middleton. PROGRESS Observed: 2018 Status: COMPLETED Source: RUSSELL 12:05 PM [facility] REPOSITORY HNO ID: [id number] Author: Nanda Rodriguez) Brian Service: (none) Author Type: Physician Type: Progress Notes Filed: 01/19/2018 1:51 PM Note Text: New PSG order placed. Will have patient follow up with sleep medicine as well. PROGRESS Observed: 2018 Status: COMPLETED Source: RUSSELL 11:08 AM [facility] REPOSITORY HNO ID: [id number] Author: Saad Allen) Larry Service: (none) Author Type: Registered Nurse Type: Progress Notes Filed: 2018 11:12 AM Note Text: TC to [facility] (oxygen provider), asked about a mask fitting for patient. States they removed the CPAP due to non-compliance. Once they remove a CPAP for that reason the pt needs to go through the entire process again: New Sleep Studies Chart notes stating why pt was non-compliant and why she needs another CPAP Gloria isn't sure whether pt's insurance will pay for another sleep study or approve another CPAP. If all are approved Gloria doesn't have home mask fittings, pt needs to come into the office to be fitted. Please advise. Saad Silvestre RN 2018 11:11 AM PROGRESS Observed: 2018 Status: COMPLETED Source: RUSSELL 11:01 AM [facility] REPOSITORY HNO ID: [id number] Author: Saad Silvestre Service: (none) Author Type: Registered Nurse Type: Progress Notes Filed: 2018 11:08 AM Note Text: TC to patient, pulmonary appt rescheduled sooner with MORGAN Whaley. Appt 01/22 at 9:00. Informed pt it's important to make that appt because the next week she will be going in for her procedure and they will want her to be checked before procedure if possible, verbalized agreement. Saad Silvestre RN 2018 11:02 AM CBC AND DIFFERENTIAL Collected: 01/15/2018 Status: F Source: RUSSELL 12:40 PM [facility] REPOSITORY TYPE CODE TESTS RESULT OUT OF REFERENCE UNITS RANGE LAB WBC 3.70-11.00 k/uL WBC 8.54 LAB RBC 3.90-5.20 m/uL RBC 3.97 LAB HGB 11.5-15.5 g/dL Hemoglobin 11.8 LAB HCT 36.0-46.0 % Hematocrit 37.7 LAB MCV 80.0-100.0 fL MCV 95.0 LAB MCH 26.0-34.0 pG MCH 29.7 LAB MCHC 30.5-36.0 g/dL MCHC 31.3 LAB RDWCV 11.5-15.0 % RDW-CV 14.9 LAB PLTCT 150-400 k/uL Platelet Count 254 LAB MPV 9.0-12.7 fL MPV 11.3 LAB ANEUT % Neut% 75.3 LAB AANEUT 1.45-7.50 k/uL Abs Neut 6.44 LAB ALYMP % Lymph% 13.6 LAB AALYMP 1.00-4.00 k/uL Abs Lymph 1.16 LAB AMONO % Bethel% 7.5 LAB AAMONO <0.87 k/uL Abs Bethel 0.64 LAB AEOS % Eosin% 3.2 LAB AAEOS <0.46 k/uL Abs Eosin 0.27 LAB ABASO % Baso% 0.4 LAB AABASO <0.11 k/uL Abs Baso 0.03 LAB AUNRBC 0 /100 WBC NRBCs 0.0 LAB ABNRBC <0.01 k/uL Absolute nRBC <0.01 LAB DTYP DTYPE Auto Diff Performed By: #### CBCDIF, CMP #### [facility] [address] [place] [address] COMP METABOLIC PANEL Collected: 01/15/2018 Status: F Source: RUSSELL 12:40 PM [facility] RE[facility] TYPE CODE TESTS RESULT OUT OF REFERENCE UNITS RANGE LAB TP 6.3-8.0 g/dL Protein, Total 6.7 LAB ALB 3.9-4.9 g/dL Low Albumin 3.5 LAB CA 8.5-10.2 mg/dL Calcium, Total 8.7 LAB TBIL 0.2-1.3 mg/dL Bilirubin, Total 0.5 LAB ALKP 32-117 U/L Alkaline Phosphatase 40 LAB AST 13-35 U/L AST 15 LAB GLU 74-99 mg/dL Glucose 90 Result Comment: The [place] Diabetes Association (ADA) provides guidance for cutoff values for fasting glucose and random glucose. The ADA defines fasting as no caloric intake for at least 8 hours. Fas ting plasma glucose results between 100 to 125 mg/dL indicate increased risk for diabetes (prediabetes). Fasting plasma glucose results greater than or equal to 126 mg/dL meet the criteria for diagnosis of diabetes. In the absence of unequivocal hyperglycemia, results should be confirmed by repeat testing. In a patient with classic symptoms of hyperglycemia or hyperglycemic crisis, random plasma glucose results greater than or equal to 200 mg/dL meet the criteria for diagnosis of diabetes. Reference: Standards of Medical Care in Diabetes 2016, [place] [employer] Association. Diabetes Care. 2016.39(Suppl 1). LAB BUN 7-21 mg/dL BUN 16 LAB CRET 0.58-0.96 mg/dL Creatinine 0.62 LAB NA 136-144 mmol/L Sodium High 145 LAB K 3.7-5.1 mmol/L Low Potassium 3.6 LAB CL 97-105 mmol/L Chloride 99 LAB CO2 22-30 mmol/L CO2 High 33 LAB AGAP 9-18 mmol/L Anion Gap 13 LAB ALT 7-38 U/L ALT 11 LAB GFRAA eGFR- Amer. >60 LAB GFRNAA . eGFR-All Other Races >60 Result Comment: eGFR (Estimated GFR) Units of measure: mL/min/1.73 meters squared eGFR is derived from the reexpressed MDRD Study equation using the following parameters: serum creatinine, age, gender and race. The creatinine assay has been calibrated to be traceable to IDMS. An eGFR <60 mL/min/1.73m2 for >3 months is consistent with chronic kidney disease. Refer to KDOQI guidelines for clinical interpretation. In patients with unstable renal function, e.g. those with acute kidney injury, the eGFR may not accurately reflect actual GFR. Performed By: #### CBCDIF, CMP #### [facility] [address] [id number] PROGRESS Observed: 01/15/2018 Status: COMPLETED Source: RUSSELL 11:58 AM [facility] [place] REPOSITORY HNO ID: [id number] Author: Saad (Nina) Larry Service: (none) Author Type: Registered Nurse Type: Progress Notes Filed: 2018 11:01 AM Note Text: PRIMARY CARE COORDINATION IN OFFICE VISIT WITH PCP Patient has been identified by name and date of . PCP Assessment/Plan: Reviewed PCP plan with patient using [employer] Discussed medical reasons for pt to restart wearing BiPAP and complications of not using BiPAP with PARESH Reinstructed to eat small snack when she is going to eat lunch late to prevent hypoglycemia PCC Plan of Care: Patient concerns: Pt concerned about expectorating bloody mucous PCC Interventions: MORGAN Zavala [facility], asked if she could see patient sooner, states yes, schedule pt is an Est Pt slot. Appt scheduled for Dr. Jacome, Pulmonary, on 03/30 at 1:[address] Middleton's staff, appt scheduled for Sleep Apnea on 05/06 at 1:40 Next Office Visit: 02/11/2018 Plan For Next Call: 3 weeks Saad Silvestre RN January 15, 2018 PROGRESS Observed: 01/15/2018 Status: COMPLETED Source: RUSSELL 10:50 AM [facility] REPOSITORY O ID: [id number] Author: Nanda Rodriguez) Brian Service: (none) Author Type: Physician Type: Progress Notes Filed: 2018 2:17 PM Note Text: Chief Complaint No chief complaint on file. HPI Tamia Panda is a 62 year old female who presents here today for Hospital Discharge Follow up. Admitted to [facility] from 01/02-01/04 for complaint of altered mental status. TCM note prepared by PCC Saad Silvestre as follows: TRANSITION CARE MANAGEMENT (TCM) INITIAL CONTACT ? ? Provider Action/FYI: ? questioned altered mental status possibly due to sleep apnea because pt not wearing BiPAP and these episodes have all occurred in the morning. ? Initial contact with patient post discharge, spoke to patient. Patient identified by name and . ? SUMMARY: -Pt discharged from [facility] on 01/04. -Follow up appointment on 01/15 w/PCP. -Medication review done no. -Admitted for: Altered mental status ? CONCERNS: Discussed concern of possible carbon monoxide exposure and pt to ask landlord for carbon monoxide monitor. Discussed wearing BiPap at night, pt states she hates it. Discussed two times her altered mental status has been in morning and concerned it may be due to sleep apnea. Offered to have [employer] show pt different mask choices but pt declined. Pt states they had her on sliding scale in hospital but she is back on metformin now she is home. ? NEW MEDICATIONS: None ? MEDS HELD/DISCONTINUED: None ? BRIEF HOSPITAL COURSE: Admitted on 01/02/18 for acute mental status change. She was found to be more lethargic at home, reported by her son. She was somnolent in the ED, arousable, but not able to stay awake. Work-up in the ED including CT, CXR, EKG and CBC were unremarkable, however, she was found to have hypokalemia and hypercapnia. BS was normal. ? She had similar episode in the past, admitted twice in past one year. It was thought to be due to infection at one time, and hypoglycemia for the other. ? #1 acute mental status change. Etiology is not clear, but she had significant elevation of PCO2 on ABG. Her baseline is 40 to 55, presents with 64. pH 7.39, unremarkable, with PO2 115 with oxygen. HCO3 39. No signs of infectious process. CT of head was unremarkable. Urine toxicology negative. ABG was repeated, PCO2 improved to 48, which is in the range of baseline. She has not been wearing BiPAP at all at home. Incidentally, previous episodes of confusion happened in the morning. 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 CO2 retention may be happening during the night associated with sleep apnea. Clinically, she had improved significantly each day, and she is back to baseline. Plan to discharge to home today, Encourage her to wear BiPAP during the night. ? #2 Hypokalemia. Potassium 2.9. Give IVP KCL and oral K-Dur. Mg normal. Monitor BMP. ? #3 DM II. Hold metformin. Add sliding scale insulin. ? #4 Hypothyroidism. Continue levothyroxine. ? #5 COPD / chronic respiratory failure / PARESH. Continue supplemental oxygen. Bronchodilator. Encourage BiPAP for now, but she had refused to wear. Since discharge, patient has not been using CPAP mask or Bipap as she does not have working machine at home. Previously on Bipap 06/08 with 2 L oxygen at night. Has not used for the last year and no longer has machine as she was non compliant and was removed from home. Still using oxygen regularly and has with her today. Denies repeat confusion since she has been out of the hospital. Taking medications as prescribed without side effects. Noted that she had low glucose last week into the 50's because she ate late, but otherwise has not had any hypoglycemia symptoms. Also noted that patient was seen again at the ED this morning for cough with streaks of blood off and on for the last 2 weeks. Had negative exam and CXR showed chronic changes without obvious cause. Discharged home and told to keep appointment with our office today for further evaluation. States that she has been trying to make herself cough when she feels like she she has something in her throat. Coughing has been more vigorous leading up to the streaking, but this morning had large clot of blood. Also notes that her nasal cannula has been irritating lately, but denies epistaxis. Has not had fever, chills, nausea, vomiting, SOB, wheezing, or chest pain. Past medical history, appointments, medications, allergies reviewed. Previous Medical History PAST MEDICAL HISTORY Diagnosis Date - Acute chronic obstructive pulmonary disease with respiratory failure ([facility]) - AF (paroxysmal atrial fibrillation) ([facility]) - Anxiety - Arthritis Seeing Dr Elliott - Cervical cancer ([facility]) hysterectomy - CHF (congestive heart failure) ([facility]) - Chronic back pain Seeing Dr. Wallace - Constipation - COPD (chronic obstructive pulmonary disease) ([facility]) - Coronary atherosclerosis of port lions coronary artery Previously seeing Dr. Sosa - DDD (degenerative disc disease), lumbar - DM type 2 (diabetes mellitus, type 2) ([facility]) Seeing Dr. Foley for podiatry - DVT (deep venous thrombosis) ([facility]) Post op INA, BSO. - Dysphagia Seeing Dr. Beaulieu - Emphysema lung ([facility]) - Essential hypertension - Functional dyspepsia - Gastroparesis 2016 mild - GERD without esophagitis - Headache - History of colon polyps 11/28/2016 - Hyperlipidemia - Hypothyroidism - Incontinence Seeing Dr. Chapman - Morbid obesity ([facility]) - Muscle weakness - Nausea - PARESH on CPAP [facility], no longer using as of 10/2017, was not compliant - PE (pulmonary thromboembolism) ([facility]) Post op INA/BSO. - Pneumonia - RLS (restless legs syndrome) - Shortness of breath - Sleep apnea using oxygen currently, not on CPAP - Unsteadiness on feet - Wheezing Previous Surgical History PAST SURGICAL HISTORY Procedure Laterality Date - CHOLECYSTECTOMY - COLONOS W/REM POLYP SNARE 11/28/2016 Repeat 2020 - COLONOSCOPY Has had multiple in the past with polyps, cannot remember dates - EGD W/O [facility] SPECIMEN W/BX 11/28/2016 - HERNIA REPAIR HX multiple - KNEE SURGERY HX Left x3 for torn cartilage - NASAL SURGERY PROCEDURE sinus - TOTAL ABDOM HYSTERECTOMY 1987 Cervical cancer - TUBAL LIGATION HX - WRIST SURGERY HX Right ganglion cyst removal x2 Family History FAMILY HISTORY Problem Relation Age of Onset - Coronary Artery Disease Mother - Coronary Artery Disease Father - Asthma Brother - Coronary Artery Disease Brother - Diabetes Sister - Hypertension Sister - Diabetes Sister - Heart Sister - Allergies Sister - Asthma Sister - Allergies Sister - Emphysema Sister Early stages - COPD Paternal Uncle Patient Allergies ALLERGIES Allergen Reactions - Adhesive Tape (Adrienne* Intolerance Surgical tape leaves rash Irritates skin badly and blisters along with medical tape - Cats Other: See Comments Congested and itchy, difficulty breathing - Dogs Other: See Comments Congestion, sneezing, and difficulty breathing - Orphenadrine Unknown - Ciprofloxacin Other: See Comments Red, hot, itchy rash - Keflex [Cephalexin] Hives - Niacin Unknown - Niacin Preparations - Penicillin G - Penicillins Unknown - Reglan [Metoclopram* Other: See Comments Unable to sleep - Xanthines Unknown Current Medications Current Outpatient Prescriptions on File Prior to Visit: COMPOUNDED PRESCRIPTION OCD Titration for portable oxygen concentrator Oxygen Flow Rate between 2-6 liters. To keep oxygen saturation at or above 92%. mupirocin (BACTROBAN) 2 % ointment Apply 1 application to affected area three times daily. promethazine (PHENERGAN) 25 mg tablet Take 1 tablet by mouth every 6 hours as needed. insulin lispro (HUMALOG KWIKPEN INSULIN) 200 unit/mL (3 mL) injection Inject subcutaneously 14 units with breakfast, 22 units with lunch, and 24 units with dinner (Patient taking differently: 14 Units. Inject subcutaneously 14 units with breakfast, 22 units with lunch, and 24 units with dinner ) LYRICA 100 mg capsule TAKE 1 CAPSULE BY MOUTH THREE TIMES A DAY capsaicin (ZOSTRIX-HP) 0.075 % topical cream Apply 1 application to affected area four times daily. ULTICARE PEN NEEDLE 31 gauge x 5/16 ndle USE DIRECTED. TO INJECT INSULINS VITAMIN C 500 mg tablet TAKE 1 TABLET BY MOUTH DAILY Ferrous Gluconate (FERGON) 324 mg (38 mg iron) tablet TAKE 1 TABLET BY MOUTH DAILY WITH BREAKFAST insulin glargine (LANTUS SOLOSTAR) 100 unit/mL (3 mL) inpn Inject 60 units subcutaneously twice daily STOOL SOFTENER 100 mg capsule TAKE 1 CAPSULE BY MOUTH DAILY CLAUDIA-KYLE 8.6 mg tab TAKE 1 TABLET BY MOUTH TWICE A DAY isosorbide mononitrate ER (IMDUR) 60 mg 24 hr tablet Take 1.5 tablets by mouth once daily. In the morning atorvastatin (LIPITOR) 40 mg tablet TAKE 1 TABLET BY MOUTH DAILY diltiazem CD (CARDIZEM CD, CARTIA XT) 180 mg 24 hr capsule TAKE 1 CAPSULE BY MOUTH EVERY MORNING levothyroxine (SYNTHROID) 100 mcg tablet TAKE 1 TABLET BY MOUTH EVERY MORNING omeprazole (PRILOSEC) 20 mg capsule TAKE 1 CAPSULE BY MOUTH EVERY MORNING ELIQUIS 2.5 mg tab tab(s) TAKE 1 TABLET BY MOUTH TWICE A DAY nitroglycerin sublingual (NITROQUICK) 0.4 mg SL tablet DISSOLVE 1 TAB UNDER THE TONGUE NEEDED FOR CHEST PAIN EVERY 5 MINUTES UP TO 3 TIMES. IF NO RELIEF CALL 911. metoprolol tartrate, short acting, (LOPRESSOR) 50 mg tablet Take 1 tablet by mouth twice daily. glucose 4 gram chewable tablet Take 4 tablets by mouth as needed for Low Blood Sugar. OXYGEN, HOME THERAPY, Inhale 3 L/min as instructed as directed. fluticasone (FLONASE) 50 mcg/actuation nasal spray Use 2 Sprays in each nostril once daily. metFORMIN ER (GLUCOPHAGE XR) 500 mg 24 hr tablet Take 2 tablets by mouth twice daily. DULoxetine (CYMBALTA) 60 mg capsule Take 1 capsule by mouth once daily. aspirin, enteric coated (ASPIRIN, ENTERIC COATED) 81 mg EC tablet Take 1 tablet by mouth every morning. furosemide (LASIX) 40 mg tablet Take 1 tablet by mouth twice daily. albuterol HFA (VENTOLIN HFA) 90 mcg/actuation inhaler Inhale 2 Puffs as instructed every 4 hours as needed for Wheezing/Shortness of Breath. COMPOUNDED PRESCRIPTION Evaluation for diabetic shoes and inserts Dx: E11.65, Z79.4 blood sugar diagnostic (ONETOUCH ULTRA TEST) test strip Use as directed to check blood sugar 4-5 times daily DX: E11.65 Insulin: yes DM: yes lancets (ONE TOUCH DELICA) 33 gauge misc Use as directed to check blood sugar 4-5 times daily DX: E11.65 Insulin: yes DM: yes Incontinence Pad, Liner, Disp pads 1 Device as needed (urinary incontinence). Prevail incontinence pads. Dx: urinary incontinence. Size: small Blood Pressure Cuff - Home Use BLOOD PRESSURE CUFF FOR HOME USE. DX: LABILE BLOOD PRESSURE Blood-Glucose Meter (ONETOUCH ULTRA2) monitoring kit UAD to test blood sugar Alcohol Swabs padm UAD to clean skin before testing blood sugar and injecting insulins. No current facility-administered medications on file prior to visit. 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 Social History Main Topics Smoking status: Former Smoker Packs/day: 1.00 Years: 28.00 Types: Cigarettes Start date: 1978 Quit date: 09/22/2005 Smokeless status: Never Used Comment: Father smoked in childhood. 2nd spouse smoked in home. Alcohol use: No Drug use: No Sexual activity: No Social History Narrative 1 year in current home. No basement, 1 parakeet. Room A/C. Electric baseboard heat. Review of Symptoms REVIEW OF SYSTEMS GENERAL: No weight loss, malaise or fevers RESPIRATORY: See HPI CARDIOVASCULAR: Negative for chest pain, leg swelling, hypertension, CHF or palpitations GI: No nausea, vomiting, or diarrhea EXAM: BP 108/66 Pulse 76 Resp 24 Wt 99.3 kg (219 lb) SpO2 97% BMI 40.06 kg/m2 General Appearance: Well appearing, alert, in no acute distress, well-hydrated, well nourished. AOx3. Skin: Skin color, texture, turgor normal, no suspicious rashes or lesions. Nose: dried blood in right nostril, left normal. No signs of active bleeding today. Lungs: Lungs clear to auscultation. No wheezing, rhonchi, rales. Heart: RRR without murmur, gallop, or rubs. No ectopy. Extremities: No deformities, edema, skin discoloration, clubbing or cyanosis. Good capillary refill. . Health Maintenance List HPV EVERY 5 YEARS due on 1985 DIABETIC FOOT EXAM due on 06/03/2018 HBA1C due on 06/13/2018 URINE ALBUMIN CREATININE RATIO due on 06/19/2018 DILATED RETINAL EXAM due on 07/03/2018 MAMMOGRAM due on 12/11/2018 LDL due on 12/11/2018 COLORECTAL CANCER SCREENING,SEE MODIFIER due on 11/30/2019 PAP EVERY 5 YEARS due on 11/27/2021 TETANUS due on 10/02/2026 ONE PNEUMOVAX PRIOR TO AGE 65 Completed INFLUENZA Completed HEPATITIS C SCREENING Completed ASSESSMENT/PLAN: 1. Delirium - ICD9: 780.09, ICD10: R41.0 (primary diagnosis) Secondary to uncontrolled sleep apnea as patient had been non compliant and no longer has machine at home. Improved today. Discussed importance of starting back on Bipap. Will set patient up with new rx for machine and refer to sleep medicine for further evaluation. 2. Hypercapnia - ICD9: 786.09, ICD10: R06.89 Will refer to pulm for further evaluation of COPD, hypercapnia, and hemoptysis. Continue current regimen and oxygen. - CONSULT TO PULM/CRITICAL CARE 3. Chronic obstructive pulmonary disease, unspecified COPD type (HCC) - ICD9: 496, ICD10: J44.9 Stable, normal exam. See above. - CONSULT TO PULM/CRITICAL CARE 4. PARESH (obstructive sleep apnea) - ICD9: 327.23, ICD10: G47.33 - CONSULT TO SLEEP MEDICINE - ADULT 5. Hypokalemia - ICD9: 276.8, ICD10: E87.6 Repeat potassium level and will call with results. - POTASSIUM BLD - COMP METABOLIC PANEL 6. Hemoptysis - ICD9: 786.30, ICD10: R04.2 May be 2/2 bleeding from nose caused by nasal cannula irritation. Advised use of vaseline at least BID to avoid irritation and will check CBC. CXR this morning negative per ER report. Will have patient follow up with pulmonology. - CBC + DIFF - CONSULT TO PULM/CRITICAL CARE 7. 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 (HCC) - ICD9: 414.01, 413.9, ICD10: I25.118 No new angina symptoms. Continue current regimen and follow up with cardiology. 8. Chronic anticoagulation - ICD9: V58.61, ICD10: Z79.01 Patient on Eliquis intermediate for history of a fib. With recent hemoptysis may need to consider discontinuing this medication. Will check CBC and if abnormal will notify cardiology to discuss cessation and just using ASA. 9. Essential hypertension - ICD9: 401.9, ICD10: I10 - good control - Continue current medication(s) - Encouraged dietary sodium restriction/DASH diet - Recommended regular aerobic exercise. - Reviewed risks of HTN and principles of treatment - Goal of BP <140/90 10. Hospital discharge follow-up - ICD9: V67.59, ICD10: Z09 See above. 11. Type 2 diabetes mellitus with hyperglycemia, with long- term current use of insulin (HCC) - ICD9: 250.00, 790.29, V58.67, ICD10: E11.65, Z79.4 Decrease lantus to 56 units BID due to recent hypoglycemia. Will have PCC contact patient next week to follow up on glucose readings. - INSULIN GLARGINE (U-100) 100 UNIT/ML (3 ML) SUBCUTANEOUS PEN Nanda Oliveira MD CNOV Observed: 01/15/2018 Status: COMPLETED Source: RUSSELL 10:40 AM [facility] REPOSITORY Office Visit (FAMPWS) TAMIA PANDA ([id number]) 1955 F Date Time Provider Department 01/15/18 10:40 AM NANDA OLIVEIRA) FAMPWS During your visit today, we recorded the following information about you: Pulse Respiration Blood pressure Weight 76/minute 24/minute 108/66 99.3 kg Nanda Oliveira MD 2018 2:17 PM Signed Chief Complaint No chief complaint on file. HPI Tamialinn Panda is a 62 year old female who presents here today for Hospital Discharge Follow up. Admitted to [facility] from 01/02-01/04 for complaint of altered mental status. TCM note prepared by PCC Saad Silvestre as follows: TRANSITION CARE MANAGEMENT (TCM) INITIAL CONTACT ? ? Provider Action/FYI: ? questioned altered mental status possibly due to sleep apnea because pt not wearing BiPAP and these episodes have all occurred in the morning. ? Initial contact with patient post discharge, spoke to patient. Patient identified by name and . ? SUMMARY: -Pt discharged from [facility] on 01/04. -Follow up appointment on 01/15 w/PCP. -Medication review done no. -Admitted for: Altered mental status ? CONCERNS: Discussed concern of possible carbon monoxide exposure and pt to ask landlord for carbon monoxide monitor. Discussed wearing BiPap at night, pt states she hates it. Discussed two times her altered mental status has been in morning and concerned it may be due to sleep apnea. Offered to have [employer] show pt different mask choices but pt declined. Pt states they had her on sliding scale in hospital but she is back on metformin now she is home. ? NEW MEDICATIONS: None ? MEDS HELD/DISCONTINUED: None ? BRIEF HOSPITAL COURSE: Admitted on 01/02/18 for acute mental status change. She was found to be more lethargic at home, reported by her son. She was somnolent in the ED, arousable, but not able to stay awake. Work-up in the ED including CT, CXR, EKG and CBC were unremarkable, however, she was found to have hypokalemia and hypercapnia. BS was normal. ? She had similar episode in the past, admitted twice in past one year. It was thought to be due to infection at one time, and hypoglycemia for the other. ? #1 acute mental status change. Etiology is not clear, but she had significant elevation of PCO2 on ABG. Her baseline is 40 to 55, presents with 64. pH 7.39, unremarkable, with PO2 115 with oxygen. HCO3 39. No signs of infectious process. CT of head was unremarkable. Urine toxicology negative. ABG was repeated, PCO2 improved to 48, which is in the range of baseline. She has not been wearing BiPAP at all at home. Incidentally, previous episodes of confusion happened in the morning. 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 CO2 retention may be happening during the night associated with sleep apnea. Clinically, she had improved significantly each day, and she is back to baseline. Plan to discharge to home today, Encourage her to wear BiPAP during the night. ? #2 Hypokalemia. Potassium 2.9. Give IVP KCL and oral K-Dur. Mg normal. Monitor BMP. ? #3 DM II. Hold metformin. Add sliding scale insulin. ? #4 Hypothyroidism. Continue levothyroxine. ? #5 COPD / chronic respiratory failure / PARESH. Continue supplemental oxygen. Bronchodilator. Encourage BiPAP for now, but she had refused to wear. Since discharge, patient has not been using CPAP mask or Bipap as she does not have working machine at home. Previously on Bipap 06/08 with 2 L oxygen at night. Has not used for the last year and no longer has machine as she was non compliant and was removed from home. Still using oxygen regularly and has with her today. Denies repeat confusion since she has been out of the hospital. Taking medications as prescribed without side effects. Noted that she had low glucose last week into the 's because she ate late, but otherwise has not had any hypoglycemia symptoms. Also noted that patient was seen again at the ED this morning for cough with streaks of blood off and on for the last 2 weeks. Had negative exam and CXR showed chronic changes without obvious cause. Discharged home and told to keep appointment with our office today for further evaluation. States that she has been trying to make herself cough when she feels like she she has something in her throat. Coughing has been more vigorous leading up to the streaking, but this morning had large clot of blood. Also notes that her nasal cannula has been irritating lately, but denies epistaxis. Has not had fever, chills, nausea, vomiting, SOB, wheezing, or chest pain. Past medical history, appointments, medications, allergies reviewed. Previous Medical History PAST MEDICAL HISTORY Diagnosis Date - Acute chronic obstructive pulmonary disease with respiratory failure ([facility]) - AF (paroxysmal atrial fibrillation) ([facility]) - Anxiety - Arthritis Seeing Dr Elliott - Cervical cancer ([facility]) hysterectomy - CHF (congestive heart failure) ([facility]) - Chronic back pain Seeing Dr. Wallace - Constipation - COPD (chronic obstructive pulmonary disease) ([facility]) - Coronary atherosclerosis of [place] coronary artery Previously seeing Dr. Sosa - DDD (degenerative disc disease), lumbar - DM type 2 (diabetes mellitus, type 2) ([facility]) Seeing Dr. Foley for podiatry - DVT (deep venous thrombosis) ([facility]) Post op INA, BSO. - Dysphagia Seeing Dr. Beaulieu - Emphysema lung ([facility]) - Essential hypertension - Functional dyspepsia - Gastroparesis 2017 mild - GERD without esophagitis - Headache - History of colon polyps 11/28/2016 - Hyperlipidemia - Hypothyroidism - Incontinence Seeing Dr. Chapman - Morbid obesity (HCC) - Muscle weakness - Nausea - PARESH on CPAP [facility], no longer using as of 10/2017, was not compliant - PE (pulmonary thromboembolism) (HCC) Post op INA/BSO. - Pneumonia - RLS (restless legs syndrome) - Shortness of breath - Sleep apnea using oxygen currently, not on CPAP - Unsteadiness on feet - Wheezing Previous Surgical History PAST SURGICAL HISTORY Procedure Laterality Date - CHOLECYSTECTOMY - COLONOS W/REM POLYP SNARE 11/28/2016 Repeat 2019 - COLONOSCOPY Has had multiple in the past with polyps, cannot remember dates - EGD W/O [facility] SPECIMEN W/BX 11/28/2016 - HERNIA REPAIR HX multiple - KNEE SURGERY HX Left x3 for torn cartilage - NASAL SURGERY PROCEDURE sinus - TOTAL ABDOM HYSTERECTOMY 1987 Cervical cancer - TUBAL LIGATION HX - WRIST SURGERY HX Right ganglion cyst removal x2 Family History FAMILY HISTORY Problem Relation Age of Onset - Coronary Artery Disease Mother - Coronary Artery Disease Father - Asthma Brother - Coronary Artery Disease Brother - Diabetes Sister - Hypertension Sister - Diabetes Sister - Heart Sister - Allergies Sister - Asthma Sister - Allergies Sister - Emphysema Sister ANDquot;Early stagesANDquot; - COPD Paternal Uncle Patient Allergies ALLERGIES Allergen Reactions - Adhesive Tape (Adrienne* Intolerance Surgical tape leaves rash Irritates skin badly and blisters along with medical tape - Cats Other: See Comments Congested and itchy, difficulty breathing - Dogs Other: See Comments Congestion, sneezing, and difficulty breathing - Orphenadrine Unknown - Ciprofloxacin Other: See Comments Red, hot, itchy rash - Keflex [Cephalexin] Hives - Niacin Unknown - Niacin Preparations - Penicillin G - Penicillins Unknown - Reglan [Metoclopram* Other: See Comments Unable to sleep - Xanthines Unknown Current Medications Current Outpatient Prescriptions on File Prior to Visit: COMPOUNDED PRESCRIPTION OCD Titration for portable oxygen concentrator Oxygen Flow Rate between 2-6 liters. To keep oxygen saturation at or above 92%. mupirocin (BACTROBAN) 2 % ointment Apply 1 application to affected area three times daily. promethazine (PHENERGAN) 25 mg tablet Take 1 tablet by mouth every 6 hours as needed. insulin lispro (HUMALOG KWIKPEN INSULIN) 200 unit/mL (3 mL) injection Inject subcutaneously 14 units with breakfast, 22 units with lunch, and 24 units with dinner (Patient taking differently: 14 Units. Inject subcutaneously 14 units with breakfast, 22 units with lunch, and 24 units with dinner ) LYRICA 100 mg capsule TAKE 1 CAPSULE BY MOUTH THREE TIMES A DAY capsaicin (ZOSTRIX-HP) 0.075 % topical cream Apply 1 application to affected area four times daily. ULTICARE PEN NEEDLE 31 gauge x 5/16ANDquot; ndle USE DIRECTED. TO INJECT INSULINS VITAMIN C 500 mg tablet TAKE 1 TABLET BY MOUTH DAILY Ferrous Gluconate (FERGON) 324 mg (38 mg iron) tablet TAKE 1 TABLET BY MOUTH DAILY WITH BREAKFAST insulin glargine (LANTUS SOLOSTAR) 100 unit/mL (3 mL) inpn Inject 60 units subcutaneously twice daily STOOL SOFTENER 100 mg capsule TAKE 1 CAPSULE BY MOUTH DAILY CLAUDIA-KYLE 8.6 mg tab TAKE 1 TABLET BY MOUTH TWICE A DAY isosorbide mononitrate ER (IMDUR) 60 mg 24 hr tablet Take 1.5 tablets by mouth once daily. In the morning atorvastatin (LIPITOR) 40 mg tablet TAKE 1 TABLET BY MOUTH DAILY diltiazem CD (CARDIZEM CD, CARTIA XT) 180 mg 24 hr capsule TAKE 1 CAPSULE BY MOUTH EVERY MORNING levothyroxine (SYNTHROID) 100 mcg tablet TAKE 1 TABLET BY MOUTH EVERY MORNING omeprazole (PRILOSEC) 20 mg capsule TAKE 1 CAPSULE BY MOUTH EVERY MORNING ELIQUIS 2.5 mg tab tab(s) TAKE 1 TABLET BY MOUTH TWICE A DAY nitroglycerin sublingual (NITROQUICK) 0.4 mg SL tablet DISSOLVE 1 TAB UNDER THE TONGUE NEEDED FOR CHEST PAIN EVERY 5 MINUTES UP TO 3 TIMES. IF NO RELIEF CALL 911. metoprolol tartrate, short acting, (LOPRESSOR) 50 mg tablet Take 1 tablet by mouth twice daily. glucose 4 gram chewable tablet Take 4 tablets by mouth as needed for Low Blood Sugar. OXYGEN, HOME THERAPY, Inhale 3 L/min as instructed as directed. fluticasone (FLONASE) 50 mcg/actuation nasal spray Use 2 Sprays in each nostril once daily. metFORMIN ER (GLUCOPHAGE XR) 500 mg 24 hr tablet Take 2 tablets by mouth twice daily. DULoxetine (CYMBALTA) 60 mg capsule Take 1 capsule by mouth once daily. aspirin, enteric coated (ASPIRIN, ENTERIC COATED) 81 mg EC tablet Take 1 tablet by mouth every morning. furosemide (LASIX) 40 mg tablet Take 1 tablet by mouth twice daily. albuterol HFA (VENTOLIN HFA) 90 mcg/actuation inhaler Inhale 2 Puffs as instructed every 4 hours as needed for Wheezing/Shortness of Breath. COMPOUNDED PRESCRIPTION Evaluation for diabetic shoes and inserts Dx: E11.65, Z79.4 blood sugar diagnostic (ONETOUCH ULTRA TEST) test strip Use as directed to check blood sugar 4-5 times daily DX: E11.65 Insulin: yes DM: yes lancets (ONE TOUCH DELICA) 33 gauge misc Use as directed to check blood sugar 4-5 times daily DX: E11.65 Insulin: yes DM: yes Incontinence Pad, Liner, Disp pads 1 Device as needed (urinary incontinence). Prevail incontinence pads. Dx: urinary incontinence. Size: small Blood Pressure Cuff - Home Use BLOOD PRESSURE CUFF FOR HOME USE. DX: LABILE BLOOD PRESSURE Blood-Glucose Meter (ONETOUCH ULTRA2) monitoring kit UAD to test blood sugar Alcohol Swabs padm UAD to clean skin before testing blood sugar and injecting insulins. No current facility-administered medications on file prior to visit. 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 Social History Main Topics Smoking status: Former Smoker Packs/day: 1.00 Years: 28.00 Types: Cigarettes Start date: 1978 Quit date: 09/22/2005 Smokeless status: Never Used Comment: Father smoked in childhood. 2nd spouse smoked in home. Alcohol use: No Drug use: No Sexual activity: No Social History Narrative 1 year in current home. No basement, 1 parakeet. Room A/C. Electric baseboard heat. Review of Symptoms REVIEW OF SYSTEMS GENERAL: No weight loss, malaise or fevers RESPIRATORY: See HPI CARDIOVASCULAR: Negative for chest pain, leg swelling, hypertension, CHF or palpitations GI: No nausea, vomiting, or diarrhea EXAM: BP 108/66 Pulse 76 Resp 24 Wt 99.3 kg (219 lb) SpO2 97% BMI 40.06 kg/m2 General Appearance: Well appearing, alert, in no acute distress, well-hydrated, well nourished. AOx3. Skin: Skin color, texture, turgor normal, no suspicious rashes or lesions. Nose: dried blood in right nostril, left normal. No signs of active bleeding today. Lungs: Lungs clear to auscultation. No wheezing, rhonchi, rales. Heart: RRR without murmur, gallop, or rubs. No ectopy. Extremities: No deformities, edema, skin discoloration, clubbing or cyanosis. Good capillary refill. . Health Maintenance List HPV EVERY 5 YEARS due on 1985 DIABETIC FOOT EXAM due on 06/03/2018 HBA1C due on 06/13/2018 URINE ALBUMIN CREATININE RATIO due on 06/19/2018 DILATED RETINAL EXAM due on 07/03/2018 MAMMOGRAM due on 12/11/2018 LDL due on 12/11/2018 COLORECTAL CANCER SCREENING,SEE MODIFIER due on 11/30/2019 PAP EVERY 5 YEARS due on 11/27/2021 TETANUS due on 10/02/2026 ONE PNEUMOVAX PRIOR TO AGE 65 Completed INFLUENZA Completed HEPATITIS C SCREENING Completed ASSESSMENT/PLAN: 1. Delirium - ICD9: 780.09, ICD10: R41.0 (primary diagnosis) Secondary to uncontrolled sleep apnea as patient had been non compliant and no longer has machine at home. Improved today. Discussed importance of starting back on Bipap. Will set patient up with new rx for machine and refer to sleep medicine for further evaluation. 2. Hypercapnia - ICD9: 786.09, ICD10: R06.89 Will refer to pulm for further evaluation of COPD, hypercapnia, and hemoptysis. Continue current regimen and oxygen. - CONSULT TO PULM/CRITICAL CARE 3. Chronic obstructive pulmonary disease, unspecified COPD type (HCC) - ICD9: 496, ICD10: J44.9 Stable, normal exam. See above. - CONSULT TO PULM/CRITICAL CARE 4. PARESH (obstructive sleep apnea) - ICD9: 327.23, ICD10: G47.33 - CONSULT TO SLEEP MEDICINE - ADULT 5. Hypokalemia - ICD9: 276.8, ICD10: E87.6 Repeat potassium level and will call with results. - POTASSIUM BLD - COMP METABOLIC PANEL 6. Hemoptysis - ICD9: 786.30, ICD10: R04.2 May be 2/2 bleeding from nose caused by nasal cannula irritation. Advised use of vaseline at least BID to avoid irritation and will check CBC. CXR this morning negative per ER report. Will have patient follow up with pulmonology. - CBC + DIFF - CONSULT TO PULM/CRITICAL CARE 7. 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 (HCC) - ICD9: 414.01, 413.9, ICD10: I25.118 No new angina symptoms. Continue current regimen and follow up with cardiology. 8. 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 With recent hemoptysis may need to consider discontinuing this medication. Will check CBC and if abnormal will notify cardiology to discuss cessation and just using ASA. 9. Essential hypertension - ICD9: 401.9, ICD10: I10 - good control - Continue current medication(s) - Encouraged dietary sodium restriction/DASH diet - Recommended regular aerobic exercise. - Reviewed risks of HTN and principles of treatment - Goal of BP ANDlt;140/90 10. Hospital discharge follow-up - ICD9: V67.59, ICD10: Z09 See above. 11. Type 2 diabetes mellitus with hyperglycemia, with long- term current use of insulin ([facility]) - ICD9: 250.00, 790.29, V58.67, ICD10: E11.65, Z79.4 Decrease lantus to 56 units BID due to recent hypoglycemia. Will have PCC contact patient next week to follow up on glucose readings. - INSULIN GLARGINE (U-100) 100 UNIT/ML (3 ML) SUBCUTANEOUS PEN Nanda Oliveira MD Referring Provider: SELF [[id number]] Allergies As of Date: 01/15/2018 Noted Allergy Reaction ADHESIVE TAPE (ROSINS) 04/04/2015 5 - Intolerance Comments: Surgical tape leaves rash Irritates skin badly and blisters along with medical tape CATS 04/10/2016 14 - Other: See Comments Comments: Congested and itchy, difficulty breathing DOGS 04/10/2016 14 - Other: See Comments Comments: Congestion, sneezing, and difficulty breathing ORPHENADRINE 04/10/2016 16 - Unknown CIPROFLOXACIN 12/11/2011 14 - Other: See Comments Comments: Red, hot, itchy rash KEFLEX (CEPHALEXIN) 07/10/2016 4 - Hives NIACIN 04/04/2015 16 - Unknown NIACIN PREPARATIONS 10/18/2004 PENICILLIN G 10/18/2004 PENICILLINS 04/04/2015 16 - Unknown REGLAN (METOCLOPRAMIDE HCL) 03/04/2017 14 - Other: See Comments Comments: Unable to sleep XANTHINES 10/18/2004 16 - Unknown Date Reviewed: 01/15/2018 Reviewed by: Katherine Perez LPN - Fully Assessed Primary Visit Diagnosis:Delirium [R41.0] Other Visit Diagnoses:Hypercapnia [R06.89] Chronic obstructive pulmonary disease, unspecified COPD type (HCC) [J44.9] PARESH (obstructive sleep apnea) [G47.33] Hypokalemia [E87.6] Hemoptysis [R04.2] 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 ([facility]) [I25.118] Chronic anticoagulation [Z79.01] Essential hypertension [I10] Hospital discharge follow-up [Z09] Type 2 diabetes mellitus with hyperglycemia, with long-term current use of insulin ([facility]) [E11.65, Z79.4] Order(s):CONSULT TO SLEEP MEDICINE - ADULT [[id number]] Order #: [id number]: 1 CBC + DIFF [SQCBCDIF] Order #: [id number] FUTURE COMP METABOLIC PANEL [SQCMP] Order #: [id number] FUTURE insulin glargine (LANTUS SOLOSTAR U-100 INSULIN) 100 unit/mL (3 mL) inpnInject 56 units subcutaneously twice dailyDisp: Rfl: CONSULT TO PULM/CRITICAL CARE [[id number]] Order #: [id number]: 1 BIPAPBilevel PAP 15/11 cmH2O with 2 LPM oxygen bleed in, mask, tubing, filters, heated humidity, lifetime supplies. Please fax 30 day compliance download to [phone]. Dx: G47.33, G47.39. [facility]ME: [facility]p: 1 DeviceRfl: 0 Prescriptions as of 01/15/2018 Sig: INSULIN GLARGINE (U-100) 100 * Inject 56 units subcutaneousl* COMPOUNDED PRESCRIPTION OCD Titration for portable ox* MUPIROCIN 2 % TOPICAL OINTMENT Apply 1 application to affect* PROMETHAZINE 25 MG TABLET Take 1 tablet by mouth every * INSULIN LISPRO (U-200) 200 UN* Inject subcutaneously 14 unit* Patient taking differently: 14 Units. Inject subcutaneous* LYRICA 100 MG CAPSULE TAKE 1 CAPSULE BY MOUTH THREE* CAPSAICIN 0.075 % TOPICAL CRE* Apply 1 application to affect* ULTICARE PEN NEEDLE 31 GAUGE * USE DIRECTED. TO INJECT IN* VITAMIN C 500 MG TABLET TAKE 1 TABLET BY MOUTH DAILY FERROUS GLUCONATE 324 MG (38 * TAKE 1 TABLET BY MOUTH DAILY * STOOL SOFTENER 100 MG CAPSULE TAKE 1 CAPSULE BY MOUTH DAILY CLAUDIA-KYLE 8.6 MG TABLET TAKE 1 TABLET BY MOUTH TWICE * ISOSORBIDE MONONITRATE ER 60 * Take 1.5 tablets by mouth onc* ATORVASTATIN 40 MG TABLET TAKE 1 TABLET BY MOUTH DAILY DILTIAZEM SR 180 MG 24 HR CAP TAKE 1 CAPSULE BY MOUTH EVERY* LEVOTHYROXINE 100 MCG TABLET TAKE 1 TABLET BY MOUTH EVERY * OMEPRAZOLE 20 MG CAPSULE,MARIA EUGENIA* TAKE 1 CAPSULE BY MOUTH EVERY* ELIQUIS 2.5 MG TABLET TAKE 1 TABLET BY MOUTH TWICE * NITROGLYCERIN 0.4 MG SUBLINGU* DISSOLVE 1 TAB UNDER THE TONG* METOPROLOL TARTRATE 50 MG TAB* Take 1 tablet by mouth twice * GLUCOSE 4 GRAM CHEWABLE TABLET Take 4 tablets by mouth as ne* OXYGEN (HOME THERAPY) Inhale 3 L/min as instructed * FLUTICASONE 50 MCG/ACTUATION * Use 2 Sprays in each nostril * METFORMIN ER 500 MG TABLET,EX* Take 2 tablets by mouth twice* DULOXETINE 60 MG CAPSULE,MARIA EUGENIA* Take 1 capsule by mouth once * ASPIRIN 81 MG TABLET,DELAYED * Take 1 tablet by mouth every * FUROSEMIDE 40 MG TABLET Take 1 tablet by mouth twice * ALBUTEROL SULFATE HFA 90 MCG/* Inhale 2 Puffs as instructed * COMPOUNDED PRESCRIPTION Evaluation for diabetic shoes* BLOOD SUGAR DIAGNOSTIC STRIPS Use as directed to check bloo* LANCETS 33 GAUGE Use as directed to check bloo* INCONTINENCE PAD, LINER, DISP* 1 Device as needed (urinary i* COMPOUNDED PRESCRIPTION BLOOD PRESSURE CUFF FOR HOME * BLOOD-GLUCOSE METER KIT UAD to test blood sugar ALCOHOL SWABS UAD to clean skin before test* BIPAP Bilevel PAP 15/11 cmH2O with * Problem List As Of Date 01/15/2018 Noted Resolved SUBJECTIVE TINNITUS [H93.19] INVALID FOR* Obstructive sleep apnea [G47.33] INVALID FOR* Hyperlipidemia [E78.5] INVALID FOR* Coronary disease [I25.10] INVALID FOR* Diabetes mellitus, type II ([facility]) [E11.9] INVALID FOR* Morbid obesity ([facility]) [E66.01] Hypothyroidism [E03.9] Anxiety [F41.9] Sleep apnea [G47.30] 02/14/2017 Essential hypertension [I10] Coronary artery disease of [place] artery of [place]* AF (paroxysmal atrial fibrillation) ([facility]) [I48.* COPD (chronic obstructive pulmonary disease) (H* GERD without esophagitis [K21.9] Dysphagia [R13.10] Constipation [K59.00] DM type 2 (diabetes mellitus, type 2) ([facility]) [E1* 02/14/2017 Shortness of breath [R06.02] 02/14/2017 Arthritis [M19.90] More... CHF (congestive heart failure) ([facility]) [I50.9] BPPV (benign paroxysmal positional vertigo) [H8*INVALID FOR* RLS (restless legs syndrome) [G25.81] INVALID FOR* Iron deficiency concern: RE RLS [E61.1] INVALID FOR* Tubular adenoma [D36.9] INVALID FOR* Incontinence [R32] More... Gastroparesis [K31.84] INVALID FOR* Pre-op testing [Z01.818] INVALID FOR* More... Prescriptions ordered this encounter Disp Refills Start End BIPAP 1 De* 0 01/15/2018 01/15/2018 Class: Print RX Sig: Bilevel PAP 15/11 cmH2O with 2 LPM oxygen bleed in, mask, tubing, filters, heated humidity, lifetime supplies. Please fax 30 day compliance download to [phone]. Dx: G47.33, G47.39. DME: [facility] INSULIN GLARGINE (U-100) 100 UNIT/ML* 01/15/2018 Class: Med Update Sig: Inject 56 units subcutaneously twice daily BIPAP 1 De* 0 01/15/2018 Class: Print RX Sig: Bilevel PAP 15/11 cmH2O with 2 LPM oxygen bleed in, mask, tubing, filters, heated humidity, lifetime supplies. Please fax 30 day compliance download to [phone]. Dx: G47.33, G47.39. DME: [facility] Medications Discontinued During This Encounter insulin glargine (LANTUS SOLOSTAR) 1* 10/23/2017 01/15/2018 Class: Med Update Cmt: This is in place of Levemir (insurance formulary change) Sig: Inject 60 units subcutaneously twice daily Disc: Reason for discontinue is not on file. BIPAP 1 De* 0 01/15/2018 01/15/2018 Class: Print RX Sig: Bilevel PAP 15/11 cmH2O with 2 LPM oxygen bleed in, mask, tubing, filters, heated humidity, lifetime supplies. Please fax 30 day compliance download to [phone]. Dx: G47.33, G47.39. DME: [facility] Disc: Reason for discontinue is not on file. Disposition: Return if symptoms worsen or fail to improve. Follow-up and Disposition History Recorded Encounter Status:Closed by NANDA OLIVEIRA MD on 01/16/18 EMERGENCY DEPARTMENT Observed: 01/15/2018 Status: F Source: MEARS SUMMARY 4:50 AM [facility]POS[facility] Medical Records Department [address] [place] [address] Emergency Department Summary 01/15/18 0405 MR#: [id number] Acct: [id number] Name: TAMIA PANDA Rep #: [id number] : 1955 62 From: Roger Laguna MD PCP: Bhupendra Oliveira MD Status: REG ER - ER Visit Summary Date of Service: 01/15/18 Chief Complaint: [] Cough with blood streak in her sputum History of Present Illness: The patient is a 62 F stated she had the above complaint. On and off for 2 weeks she has had a few episodes where she coughs up some sputum with occasional blood tinge. She is on home oxygen. She is on aspirin and Eliquis. Recent admission for CO2 narcosis. Has chronic respiratory insufficiency. Denies any other complaints. Physical Examination: [] Vital signs reviewed General: Well-nourished well-developed Head: Normocephalic atraumatic Eyes: Pupils equal round and reactive to light extraocular movements intact ENT: TMs clear no hemotympanum no trauma Neck: Nontender full range of motion Cardiovascular: Regular rate rhythm no murmurs normal S1-S2 Respiratory: No distress clear to auscultation bilaterally chest nontender Abdomen: Soft nontender nondistended normal bowel sounds no masses Back: Nontender no CVA tenderness Extremities: Nontender active range of motion 4 extremities no trauma Skin: Normal color no trauma Neuro alert oriented cranial nerves II through XII intact normal strength sensation reflexes Test Results: [] Emergency Department Course and Treatment: [] Chest x-ray shows chronic changes without acute disease. No pulmonary infarcts or other abnormalities. Is likely the blood changes from the fact that she is on blood thinners. She is also taking and dry oxygen. I do not feel she needs a big workup for this. She will follow-up as an outpatient. Treatment Plan: [] Disposition: [] Impression: [] Cough with blood-tinged mucus This note was generated with Curee[employer] dictation software. It may contain incorrect words, spelling, and punctuation that were not noted in review of the chart prior to signing ED Disposition - Plan for ED Patient: Chief Complaint: Cough Referrals: Bhupendra Oliveira MD [Primary Care Provider] - What to do if you have Problems For any increased pain, shortness of breath, bleeding, nausea or vomiting, chest pain, or any unexpected problems, contact your Primary Care Provider. Call [facility] ([phone]) or report to the closest Emergency Room. Call 911 if necessary. 01/15/18 0436 <Electronically signed by Roger Laguna MD> Date Roger Laguna MD Cosigner Signature (If Indicated): Date CC: Bhupendra Oliveira MD DISCHARGE INSTRUCTION Observed: 01/15/2018 Status: F Source: MEARS 4:50 AM [facility] Medical Records Department [address] [place] [address] [place] [address] Discharge Instruction 01/15/18 0407 MR#: [id number] Acct: [id number] Name: TAMIA PANDA Rep #: [id number] : 1955 62 From: Roger Laguna MD PCP: Bhupednra Oliveira MD Status: REG ER ED Disposition - Plan for ED Patient: Chief Complaint: Cough Instructions: What is COPD? Referrals: Bhupendra Oliveira MD [Primary Care Provider] - What to do if you have Problems For any increased pain, shortness of breath, bleeding, nausea or vomiting, chest pain, or any unexpected problems, contact your Primary Care Provider. Call [facility] ([phone]) or report to the closest Emergency Room. Call 911 if necessary. 01/15/18449 <Electronically signed by Roger Laguna MD> Date Roger Laguna MD Cosigner Signature (If Indicated): Date CC: Bhupendra Oliveira MD CHEST 1 VIEW Observed: 01/15/2018 Status: F Source: MEARS 3:42 AM [facility] Imaging Services [address] [place] [id number] Chest 1 View MR#: [id number] Acct: [id number] Name: TAMIA PANDA Rep #: [id number] : 1955 F 62 From: Darrel Mandel MD PCP: Bhupendra Oliveira MD Status: REG ER Study: Chest 1 View Date of Exam: 01/15/18 Exam# [id number] Ordering Dr: Roger Laguna MD STUDY: X-RAY CHEST REASON FOR EXAM: Female, 62 years old. Bloody sputum. Coughed up blood tonight. TECHNIQUE: 2 AP portable views of the chest were obtained. COMPARISON: 01/02/2018. FINDINGS: The lungs are clear and mildly under expanded. There is no demonstrated pleural abnormality. Normal size heart. Normal mediastinum and tracie. Normal visualized pulmonary arteries. Normal visualized aortic arch and descending thoracic aorta. There are multilevel degenerative changes of the visualized thoracic spine. Normal visualized ribs, clavicles, and shoulders. There is no demonstrated abnormality of the visualized soft tissue structures of the upper abdomen. RAD/Chest 1 View IMPRESSION: No evidence for acute cardiopulmonary pathology. Electronically Signed: Darrel Mandel MD at 4:25 EDT , Service support , CC: Bhupendra Oliveira MD; Roger Laguna MD Pipe Recovery Specialist: Signed MELCHOR Observed: 01/15/2018 Status: COMPLETED Source: RUSSELL 12:00 AM [facility] REPOSITORY Patient Outreach ([facility]) TAMIA PANDA ([id number]) 1955 F Date Time Provider Department 01/15/18 SAAD SILVESTRE (RN) [facility] During your visit today, we recorded the following information about you: Saad Silvestre RN 2018 11:01 AM Signed PRIMARY CARE COORDINATION IN OFFICE VISIT WITH PCP Patient has been identified by name and date of . PCP Assessment/Plan: Reviewed PCP plan with patient using Te[employer] Discussed medical reasons for pt to restart wearing BiPAP and complications of not using BiPAP with PARESH Reinstructed to eat small snack when she is going to eat lunch late to prevent hypoglycemia PCC Plan of Care: Patient concerns: Pt concerned about expectorating bloody mucous PCC Interventions: Messaged [facility], asked if she could see patient sooner, states yes, schedule pt is an Est Pt slot. Appt scheduled for Dr. Jacome, Pulmonary, on 03/30 at 1:[address] Middleton's staff, appt scheduled for Sleep Apnea on 05/06 at 1:40 Next Office Visit: 02/11/2018 Plan For Next Call: 3 weeks Saad Silvestre RN January 15, 2018 Saad Silvestre RN 2018 11:08 AM Signed TC to patient, pulmonary appt rescheduled sooner with MORGAN Whaley. Appt 01/22 at 9:00. Informed pt it's important to make that appt because the next week she will be going in for her procedure and they will want her to be checked before procedure if possible, verbalized agreement. Saad Silvestre RN 2018 11:02 AM Saad Silvestre RN 2018 11:12 AM Signed TC to [facility] (oxygen provider), asked about a mask fitting for patient. States they removed the CPAP due to non-compliance. Once they remove a CPAP for that reason the pt needs to go through the entire process again: New Sleep Studies Chart notes stating why pt was non-compliant and why she needs another CPAP [facility] isn't sure whether pt's insurance will pay for another sleep study or approve another CPAP. If all are approved [facility] doesn't have home mask fittings, pt needs to come into the office to be fitted. Please advise. Saad Silvestre RN 2018 11:11 AM Nanda Oliveira MD 01/19/2018 1:51 PM Signed New PSG order placed. Will have patient follow up with sleep medicine as well. Saad Silvestre RN 01/19/2018 1:51 PM Signed TC to patient, discussed having to repeat sleep study and discussed scheduling with Dr. Amador sooner than April with Dr. Middleton. Saad Silvestre RN 01/19/2018 1:51 PM Signed Spoke with Dr. Middleton's nurse and PCP, order for sleep titration faxed to [facility], PCP will write initial order and pt will f/u 60-90 days after restarting BIPAP with Dr. Middleton in April. Saad Silvestre RN Allergies As of Date: 01/15/2018 Noted Allergy Reaction ADHESIVE TAPE (ROSINS) 04/04/2015 5 - Intolerance Comments: Surgical tape leaves rash Irritates skin badly and blisters along with medical tape CATS 04/10/2016 14 - Other: See Comments Comments: Congested and itchy, difficulty breathing DOGS 04/10/2016 14 - Other: See Comments Comments: Congestion, sneezing, and difficulty breathing ORPHENADRINE 04/10/2016 16 - Unknown CIPROFLOXACIN 12/11/2011 14 - Other: See Comments Comments: Red, hot, itchy rash KEFLEX (CEPHALEXIN) 07/10/2016 4 - Hives NIACIN 04/04/2015 16 - Unknown NIACIN PREPARATIONS 10/18/2004 PENICILLIN G 10/18/2004 PENICILLINS 04/04/2015 16 - Unknown REGLAN (METOCLOPRAMIDE HCL) 03/04/2017 14 - Other: See Comments Comments: Unable to sleep XANTHINES 10/18/2004 16 - Unknown Date Reviewed: 01/15/2018 Reviewed by: Katherine Perez LPN - Fully Assessed Reason for Visit: Glove Cuffer-In Office Visit [4194] Primary Visit Diagnosis:Obstructive sleep apnea [G47.33] Order(s):POLYSOMNOGRAM (PSG)/HOME SLEEP APNEA TESTING (HSAT) [[id number]] Order #: [id number] FUTURE Prescriptions as of 01/15/2018 Sig: INSULIN GLARGINE (U-100) 100 * Inject 56 units subcutaneousl* BIPAP Bilevel PAP 15/11 cmH2O with * COMPOUNDED PRESCRIPTION OCD Titration for portable ox* MUPIROCIN 2 % TOPICAL OINTMENT Apply 1 application to affect* PROMETHAZINE 25 MG TABLET Take 1 tablet by mouth every * INSULIN LISPRO (U-200) 200 UN* Inject subcutaneously 14 unit* Patient taking differently: 14 Units. Inject subcutaneous* LYRICA 100 MG CAPSULE TAKE 1 CAPSULE BY MOUTH THREE* CAPSAICIN 0.075 % TOPICAL CRE* Apply 1 application to affect* ULTICARE PEN NEEDLE 31 GAUGE * USE DIRECTED. TO INJECT IN* VITAMIN C 500 MG TABLET TAKE 1 TABLET BY MOUTH DAILY FERROUS GLUCONATE 324 MG (38 * TAKE 1 TABLET BY MOUTH DAILY * STOOL SOFTENER 100 MG CAPSULE TAKE 1 CAPSULE BY MOUTH DAILY CLAUDIA-KYLE 8.6 MG TABLET TAKE 1 TABLET BY MOUTH TWICE * ISOSORBIDE MONONITRATE ER 60 * Take 1.5 tablets by mouth onc* ATORVASTATIN 40 MG TABLET TAKE 1 TABLET BY MOUTH DAILY DILTIAZEM SR 180 MG 24 HR CAP TAKE 1 CAPSULE BY MOUTH EVERY* LEVOTHYROXINE 100 MCG TABLET TAKE 1 TABLET BY MOUTH EVERY * OMEPRAZOLE 20 MG CAPSULE,MARIA EUGENIA* TAKE 1 CAPSULE BY MOUTH EVERY* ELIQUIS 2.5 MG TABLET TAKE 1 TABLET BY MOUTH TWICE * NITROGLYCERIN 0.4 MG SUBLINGU* DISSOLVE 1 TAB UNDER THE TONG* METOPROLOL TARTRATE 50 MG TAB* Take 1 tablet by mouth twice * GLUCOSE 4 GRAM CHEWABLE TABLET Take 4 tablets by mouth as ne* OXYGEN (HOME THERAPY) Inhale 3 L/min as instructed * FLUTICASONE 50 MCG/ACTUATION * Use 2 Sprays in each nostril * METFORMIN ER 500 MG TABLET,EX* Take 2 tablets by mouth twice* DULOXETINE 60 MG CAPSULE,MARIA EUGENIA* Take 1 capsule by mouth once * ASPIRIN 81 MG TABLET,DELAYED * Take 1 tablet by mouth every * FUROSEMIDE 40 MG TABLET Take 1 tablet by mouth twice * ALBUTEROL SULFATE HFA 90 MCG/* Inhale 2 Puffs as instructed * COMPOUNDED PRESCRIPTION Evaluation for diabetic shoes* BLOOD SUGAR DIAGNOSTIC STRIPS Use as directed to check bloo* LANCETS 33 GAUGE Use as directed to check bloo* INCONTINENCE PAD, LINER, DISP* 1 Device as needed (urinary i* COMPOUNDED PRESCRIPTION BLOOD PRESSURE CUFF FOR HOME * BLOOD-GLUCOSE METER KIT UAD to test blood sugar ALCOHOL SWABS UAD to clean skin before test* Problem List As Of Date 01/15/2018 Noted Resolved SUBJECTIVE TINNITUS [H93.19] INVALID FOR* Obstructive sleep apnea [G47.33] INVALID FOR* Hyperlipidemia [E78.5] INVALID FOR* Coronary disease [I25.10] INVALID FOR* Diabetes mellitus, type II (HCC) [E11.9] INVALID FOR* Morbid obesity (HCC) [E66.01] Hypothyroidism [E03.9] Anxiety [F41.9] Sleep apnea [G47.30] 02/14/2017 Essential hypertension [I10] Coronary artery disease of port lions artery of stoney* AF (paroxysmal atrial fibrillation) (HCC) [I48.* COPD (chronic obstructive pulmonary disease) (H* GERD without esophagitis [K21.9] Dysphagia [R13.10] Constipation [K59.00] DM type 2 (diabetes mellitus, type 2) ([facility]) [E1* 02/14/2017 Shortness of breath [R06.02] 02/14/2017 Arthritis [M19.90] More... CHF (congestive heart failure) ([facility]) [I50.9] BPPV (benign paroxysmal positional vertigo) [H8*INVALID FOR* RLS (restless legs syndrome) [G25.81] INVALID FOR* Iron deficiency concern: RE RLS [E61.1] INVALID FOR* Tubular adenoma [D36.9] INVALID FOR* Incontinence [R32] More... Gastroparesis [K31.84] INVALID FOR* Pre-op testing [Z01.818] INVALID FOR* More... Encounter Status:Closed by SAAD SILVESTRE on 01/19/18 PROGRESS Observed: 01/09/2018 Status: COMPLETED Source: RUSSELL 12:38 PM [facility] REPOSITORY HNO ID: [id number] Author: Chris Oconnell Service: (none) Author Type: Nurse Practitioner Type: Progress Notes Filed: 01/09/2018 12:39 PM Note Text: Reviewed and Agree. Follow up as planned next week. Chris Oconnell APRN.CNP PROGRESS Observed: 01/09/2018 Status: COMPLETED Source: RUSSELL 11:41 AM [facility] REPOSITORY HNO ID: [id number] Author: Saad Silvestre Service: (none) Author Type: Registered Nurse Type: Progress Notes Filed: 01/09/2018 11:46 AM Note Text: PRIMARY CARE COORDINATION FOLLOW-UP NOTE Provider Action/FYI Reports orange urine x several days, no sx UTI, good fluid intake Instructed pt to watch for sx UTI and call MD Patient identified by name and date of . YES Spoke to patient Concerns: Pt stating her urine has been orange colored for the past few days. No new medications No burning, pain, frequency or urgency Discussed with ARTURO Silva and asked pt if she has been drinking, states she drinks a lot of water and hasn't decreased her intake. Instructed pt to watch it and if she gets any above symptoms she should call MD, verbalized understanding Cleaning Supervisor plan for next outreach: Will follow up one week Signature Sada Silvestre RN January 09, 2018 [facility] Observed: 01/09/2018 Status: COMPLETED Source: RUSSELL 12:00 AM [facility] REPOSITORY Patient Outreach (FAMPWS) TAMIA PANDA ([id number]) 1955 F Date Time Provider Department 01/09/18 SAAD SILVESTRE (NINA) [facility] During your visit today, we recorded the following information about you: Saad Silvestre RN 01/09/2018 11:46 AM Signed PRIMARY CARE COORDINATION FOLLOW-UP NOTE Provider Action/FYI Reports ANDquot;orangeANDquot; urine x several days, no sx UTI, good fluid intake Instructed pt to watch for sx UTI and call MD Patient identified by name and date of . YES Spoke to patient Concerns: Pt stating her urine has been orange colored for the past few days. No new medications No burning, pain, frequency or urgency Discussed with ARTURO Silva and asked pt if she has been drinking, states she drinks a lot of water and hasn't decreased her intake. Instructed pt to watch it and if she gets any above symptoms she should call MD, verbalized understanding Cleaning Supervisor plan for next outreach: Will follow up one week Signature Saad Silvestre RN January 09, 2018 Chris Oconnell APRN.LM 01/09/2018 12:39 PM Signed Reviewed and Agree. Follow up as planned next week. Chris Oconnell APRN.LM Allergies As of Date: 01/09/2018 Noted Allergy Reaction ADHESIVE TAPE (ROSINS) 04/04/2015 5 - Intolerance Comments: Surgical tape leaves rash Irritates skin badly and blisters along with medical tape CATS 04/10/2016 14 - Other: See Comments Comments: Congested and itchy, difficulty breathing DOGS 04/10/2016 14 - Other: See Comments Comments: Congestion, sneezing, and difficulty breathing ORPHENADRINE 04/10/2016 16 - Unknown CIPROFLOXACIN 12/11/2011 14 - Other: See Comments Comments: Red, hot, itchy rash KEFLEX (CEPHALEXIN) 07/10/2016 4 - Hives NIACIN 04/04/2015 16 - Unknown NIACIN PREPARATIONS 10/18/2004 PENICILLIN G 10/18/2004 PENICILLINS 04/04/2015 16 - Unknown REGLAN (METOCLOPRAMIDE HCL) 03/04/2017 14 - Other: See Comments Comments: Unable to sleep XANTHINES 10/18/2004 16 - Unknown Date Reviewed: 01/01/2018 Reviewed by: Yessi Sanchez LPN - Fully Assessed Reason for Visit: Glove Cuffer - Patient Initiated [3614] Prescriptions as of 01/09/2018 Sig: SUCRALFATE 100 MG/ML ORAL GISELLE* Take 10 mL by mouth four time* COMPOUNDED PRESCRIPTION OCD Titration for portable ox* MUPIROCIN 2 % TOPICAL OINTMENT Apply 1 application to affect* PROMETHAZINE 25 MG TABLET Take 1 tablet by mouth every * INSULIN LISPRO (U-200) 200 UN* Inject subcutaneously 14 unit* Patient taking differently: 14 Units. Inject subcutaneous* LYRICA 100 MG CAPSULE TAKE 1 CAPSULE BY MOUTH THREE* CAPSAICIN 0.075 % TOPICAL CRE* Apply 1 application to affect* ULTICARE PEN NEEDLE 31 GAUGE * USE DIRECTED. TO INJECT IN* VITAMIN C 500 MG TABLET TAKE 1 TABLET BY MOUTH DAILY FERROUS GLUCONATE 324 MG (38 * TAKE 1 TABLET BY MOUTH DAILY * INSULIN GLARGINE (U-100) 100 * Inject 60 units subcutaneousl* STOOL SOFTENER 100 MG CAPSULE TAKE 1 CAPSULE BY MOUTH DAILY CLAUDIA-KYLE 8.6 MG TABLET TAKE 1 TABLET BY MOUTH TWICE * ISOSORBIDE MONONITRATE ER 60 * Take 1.5 tablets by mouth onc* ATORVASTATIN 40 MG TABLET TAKE 1 TABLET BY MOUTH DAILY DILTIAZEM SR 180 MG 24 HR CAP TAKE 1 CAPSULE BY MOUTH EVERY* LEVOTHYROXINE 100 MCG TABLET TAKE 1 TABLET BY MOUTH EVERY * OMEPRAZOLE 20 MG CAPSULE,MARIA EUGENIA* TAKE 1 CAPSULE BY MOUTH EVERY* ELIQUIS 2.5 MG TABLET TAKE 1 TABLET BY MOUTH TWICE * NITROGLYCERIN 0.4 MG SUBLINGU* DISSOLVE 1 TAB UNDER THE TONG* METOPROLOL TARTRATE 50 MG TAB* Take 1 tablet by mouth twice * GLUCOSE 4 GRAM CHEWABLE TABLET Take 4 tablets by mouth as ne* OXYGEN (HOME THERAPY) Inhale 3 L/min as instructed * FLUTICASONE 50 MCG/ACTUATION * Use 2 Sprays in each nostril * METFORMIN ER 500 MG TABLET,EX* Take 2 tablets by mouth twice* DULOXETINE 60 MG CAPSULE,MARIA EUGENIA* Take 1 capsule by mouth once * ASPIRIN 81 MG TABLET,DELAYED * Take 1 tablet by mouth every * FUROSEMIDE 40 MG TABLET Take 1 tablet by mouth twice * ALBUTEROL SULFATE HFA 90 MCG/* Inhale 2 Puffs as instructed * COMPOUNDED PRESCRIPTION Evaluation for diabetic shoes* BLOOD SUGAR DIAGNOSTIC STRIPS Use as directed to check bloo* LANCETS 33 GAUGE Use as directed to check bloo* INCONTINENCE PAD, LINER, DISP* 1 Device as needed (urinary i* COMPOUNDED PRESCRIPTION BLOOD PRESSURE CUFF FOR HOME * BLOOD-GLUCOSE METER KIT UAD to test blood sugar ALCOHOL SWABS UAD to clean skin before test* Problem List As Of Date 01/09/2018 Noted Resolved SUBJECTIVE TINNITUS [H93.19] INVALID FOR* Obstructive sleep apnea [G47.33] INVALID FOR* Hyperlipidemia [E78.5] INVALID FOR* Coronary disease [I25.10] INVALID FOR* Diabetes mellitus, type II ([facility]) [E11.9] INVALID FOR* Morbid obesity ([facility]) [E66.01] Hypothyroidism [E03.9] Anxiety [F41.9] Sleep apnea [G47.30] 02/14/2017 Essential hypertension [I10] Coronary artery disease of port lions artery of stoney* AF (paroxysmal atrial fibrillation) ([facility]) [I48.* COPD (chronic obstructive pulmonary disease) (H* GERD without esophagitis [K21.9] Dysphagia [R13.10] Constipation [K59.00] DM type 2 (diabetes mellitus, type 2) ([facility]) [E1* 02/14/2017 Shortness of breath [R06.02] 02/14/2017 Arthritis [M19.90] More... CHF (congestive heart failure) ([facility]) [I50.9] BPPV (benign paroxysmal positional vertigo) [H8*INVALID FOR* RLS (restless legs syndrome) [G25.81] INVALID FOR* Iron deficiency concern: RE RLS [E61.1] INVALID FOR* Tubular adenoma [D36.9] INVALID FOR* Incontinence [R32] More... Gastroparesis [K31.84] INVALID FOR* Pre-op testing [Z01.818] INVALID FOR* More... Encounter Status:Closed by CHRIS OCONNELL on 01/09/18 12 LEAD ELECTROCARDIOGRAM Observed: 01/06/2018 Status: F Source: KINJAL 3:25 PM [facility] REPOSITORY [facility] Cardiovascular Services [address] [place] [address] 12 Lead EKG 01/03/18 2324 MR#: [id number] Acct: [id number] Name: TAMIA PANDA Rep #: [id number] : 1955 62 From: Nora Ramsey MD Attending Dr: Shruthi Christie M.D. Status: DIS NICOLE Ordering Dr: Arielle Lawrence Date: 01/03/18 Location: [facility] Sex: F C Admitted: 01/02/18 Test Reason : CHEST PRESSURE Blood Pressure : / mmHG Vent. Rate : 076 BPM Atrial Rate : 072 BPM P-R Int : 000 ms QRS Dur : 074 ms QT Int : 456 ms P-R-T Axes : 000 -11 109 degrees QTc Int : 513 ms Atrial fibrillation with premature ventricular or aberrantly conducted complexes Nonspecific T wave abnormality Abnormal ECG Confirmed by EMILY ABRAHAM, NORA ([id number]), senior technical editor SHYANNE TERRAZAS ([id number]) on 01/06/2018 3:24:30 PM Referred By: Confirmed By:NORA RAMSEY MD 01/06/18 1524 Date Nora Ramsey MD CC: Arielle Lawrence; Bhupendra Oliveira MD; Shruthi Christie M.D. Signed 12 LEAD ELECTROCARDIOGRAM Observed: 01/06/2018 Status: F Source: KINJAL 1:49 PM [facility] REPOSITORY [facility] Cardiovascular Services [address] [place] [address] 12 Lead EKG 01/02/18 0949 MR#: [id number] Acct: [id number] Name: TAMIA PANDA Rep #: [id number] : 1955 62 From: Bart Blas MD Attending Dr: Shruthi Christie M.D. Status: DIS NCIOLE Ordering Dr: Bao Quintana MD Date: 01/02/18 Location: [facility] Sex: F C Admitted: 01/02/18 Test Reason : NERUO Blood Pressure : / mmHG Vent. Rate : 080 BPM Atrial Rate : 394 BPM P-R Int : 000 ms QRS Dur : 080 ms QT Int : 360 ms P-R-T Axes : 000 -20 150 degrees QTc Int : 415 ms Atrial fibrillation with premature ventricular or aberrantly conducted complexes Inferior infarct , age undetermined ST AND T wave abnormality, consider lateral ischemia Abnormal ECG Confirmed by WAN ABRAHAM, BART ([id number]), senior technical editor SHYANNE TERRAZAS ([id number]) on 01/06/2018 1:48:31 PM Referred By: LAURA Confirmed By:BART BLAS MD 01/06/18 1348 Date Bart Blas MD CC: Bhupendra Oliveira MD; Bao Quintana MD; Shruthi Christie M.D. Signed PROGRESS Observed: 01/06/2018 Status: COMPLETED Source: RUSSELL 12:07 PM [facility] REPOSITORY HNO ID: [id number] Author: Nanda Oliveira Service: (none) Author Type: Physician Type: Progress Notes Filed: 01/06/2018 12:07 PM Note Text: Reviewed. PROGRESS Observed: 01/06/2018 Status: COMPLETED Source: RUSSELL 12:07 PM [facility] REPOSITORY HNO ID: [id number] Author: Nafisa HarrisonRn) NINA Subramanian Service: (none) Author Type: Registered Nurse Type: Progress Notes Filed: 01/06/2018 12:08 PM Note Text: . PROGRESS Observed: 01/06/2018 Status: COMPLETED Source: RUSSELL 11:58 AM [facility] RE[facility] HNO ID: [id number] Author: Nafisa HarrisonRn) NINA Subramanian Service: (none) Author Type: Registered Nurse Type: Progress Notes Filed: 01/06/2018 11:58 AM Note Text: . HOSP Observed: 01/06/2018 Status: COMPLETED Source: RUSSELL 12:00 AM [facility] RE[facility]ITORY Patient:Tamia Panda MRN: <[id number]> Height:5' 1.811(1.57 m) Weight:219 lb (99.338 kg) Outpatient Medications as of 01/30/18: estradiol (ESTRACE) 0.01 % (0.1 mg/gram) vaginal cream COMPOUNDED PRESCRIPTION insulin glargine (LANTUS SOLOSTAR U-100 INSULIN) 100 unit/mL (3 mL) inpn ONETOUCH ULTRA BLUE TEST STRIP test strip ONETOUCH DELICA LANCETS 30 gauge misc insulin glargine (LANTUS SOLOSTAR U-100 INSULIN) 100 unit/mL (3 mL) inpn BIPAP COMPOUNDED PRESCRIPTION mupirocin (BACTROBAN) 2 % ointment promethazine (PHENERGAN) 25 mg tablet insulin lispro (HUMALOG KWIKPEN INSULIN) 200 unit/mL (3 mL) injection LYRICA 100 mg capsule capsaicin (ZOSTRIX-HP) 0.075 % topical cream ULTICARE PEN NEEDLE 31 gauge x 02/04 ndle VITAMIN C 500 mg tablet Ferrous Gluconate (FERGON) 324 mg (38 mg iron) tablet STOOL SOFTENER 100 mg capsule CLAUDIA-KYLE 8.6 mg tab isosorbide mononitrate ER (IMDUR) 60 mg 24 hr tablet atorvastatin (LIPITOR) 40 mg tablet diltiazem CD (CARDIZEM CD, CARTIA XT) 180 mg 24 hr capsule levothyroxine (SYNTHROID) 100 mcg tablet omeprazole (PRILOSEC) 20 mg capsule ELIQUIS 2.5 mg tab tab(s) nitroglycerin sublingual (NITROQUICK) 0.4 mg SL tablet metoprolol tartrate, short acting, (LOPRESSOR) 50 mg tablet glucose 4 gram chewable tablet OXYGEN, HOME THERAPY, fluticasone (FLONASE) 50 mcg/actuation nasal spray metFORMIN ER (GLUCOPHAGE XR) 500 mg 24 hr tablet DULoxetine (CYMBALTA) 60 mg capsule aspirin, enteric coated (ASPIRIN, ENTERIC COATED) 81 mg EC tablet furosemide (LASIX) 40 mg tablet albuterol HFA (VENTOLIN HFA) 90 mcg/actuation inhaler COMPOUNDED PRESCRIPTION Incontinence Pad, Liner, Disp pads Blood Pressure Cuff - Home Use Blood-Glucose Meter (ONETOUCH ULTRA2) monitoring kit Alcohol Swabs padm Admission/Clinic Administered Medications as of 01/30/18: NaCl 0.9% iv infusion clindamycin 900 mg in D5W 50 mL (CLEOCIN) dextrose 40 % 15 g glucagon 1 mg injection (GLUCAGEN) dextrose 50% in water 25 mL syringe insulin lispro injection (rapid acting) (HumaLOG) Problem List: Subjective tinnitus [H93.19] PARESH treated with BiPAP [G47.33] Hyperlipidemia [E78.5] Coronary disease [I25.10] Diabetes mellitus, type II ([facility]) [E11.9] Morbid obesity ([facility]) [E66.01] Hypothyroidism [E03.9] Anxiety [F41.9] Essential hypertension [I10] 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 ([facility]) [I25.118] AF (paroxysmal atrial fibrillation) ([facility]) [I48.0] COPD (chronic obstructive pulmonary disease) ([facility]) [J44.9] GERD without esophagitis [K21.9] Dysphagia [R13.10] Constipation [K59.00] Arthritis [M19.90] CHF (congestive heart failure) ([facility]) [I50.9] BPPV (benign paroxysmal positional vertigo) [H81.10] RLS (restless legs syndrome) [G25.81] Iron deficiency concern: RE RLS [E61.1] Tubular adenoma [D36.9] Incontinence [R32] Gastroparesis [K31.84] Pre-op testing [Z01.818] Hypercapnia [R06.89] S/P coronary artery stent placement [Z95.5] Stage 3 chronic kidney disease [N18.3] Depression [F32.9] Allergies: Adhesive Tape (Rosins) Cats Dogs Orphenadrine Ciprofloxacin Keflex [Cephalexin] Niacin Penicillin G Penicillins Reglan [Metoclopramide Hcl] Xanthines Date Verified: 01/30/18 Lab Values Lab Value Units Date High Low POTA* 3.6 mmol/L 01/15/2018 5.1 3.7 ANANDA* 37.7 % 01/15/2018 46.0 36.0 Progress Notes (INTM MAIN IMPACT): Krzysztof Goodwin 01/23/2018 12:50 PM Signed HISTORY AND PHYSICAL EXAMINATION (IMPACT) SERVICE DATE: 01/23/2018 SERVICE TIME: 11:25 AM PRIMARY CARE PHYSICIAN: Nanda Oliveira) CHIEF COMPLAINT/HISTORY OF PRESENT ILLNESS: Ms. Panda is a 63 year old female referred to me for preoperative evaluation. My final recommendations will be communicated back to the requesting physician/surgeon by the way of the shared medical record. Referring Surgeon: Jefferson Mckay Date of Surgery: 01/30/18 Planned Surgery/Procedure: ENDOSCOPIC PER-ORAL PYLOROMYOTOMY Indication for Planned Surgery / Procedure: Gastroparesis Refer to Assessment section for details of any comorbidities. Patient is Able to Perform the Following Physical Activity: Take care of self; that is eating, dressing, bathing, using the toilet (2.75 METs) Patient denies any chest pain or undue shortness of breath with the above physical activity. physical limitation Patient's functional class is IV based on self-reported physical activity. Significant Anesthesia Considerations: None. PAST MEDICAL/SURGICAL/FAMILY/SOCIAL HISTORY PAST MEDICAL HISTORY Diagnosis Date - Acute chronic obstructive pulmonary disease with respiratory failure ([facility]) - AF (paroxysmal atrial fibrillation) ([facility]) - Anxiety - Arthritis Seeing Dr Elliott - Cervical cancer ([facility]) hysterectomy - CHF (congestive heart failure) ([facility]) - Chronic back pain Seeing Dr. Wallace - Constipation - COPD (chronic obstructive pulmonary disease) ([facility]) - Coronary atherosclerosis of port lions coronary artery Previously seeing Dr. Sosa - DDD (degenerative disc disease), lumbar - DM type 2 (diabetes mellitus, type 2) ([facility]) Seeing Dr. Foley for podiatry - DVT (deep venous thrombosis) ([facility]) Post op INA, BSO. - Dysphagia Seeing Dr. Beaulieu - Emphysema lung ([facility]) - Essential hypertension - Functional dyspepsia - Gastroparesis 2016 mild - GERD without esophagitis - Headache - History of colon polyps 11/28/2016 - Hyperlipidemia - Hypothyroidism - Incontinence Seeing Dr. Chapman - Morbid obesity ([facility]) - Muscle weakness - Nausea - PARESH on CPAP [facility], no longer using as of 10/2017, was not compliant - PE (pulmonary thromboembolism) ([facility]) Post op INA/BSO. - Pneumonia - RLS (restless legs syndrome) - Shortness of breath - Sleep apnea using oxygen currently, not on CPAP - Unsteadiness on feet - Wheezing PAST SURGICAL HISTORY Procedure Laterality Date - CHOLECYSTECTOMY - COLONOS W/REM POLYP SNARE 11/28/2016 Repeat 2019 - COLONOSCOPY Has had multiple in the past with polyps, cannot remember dates - EGD W/O BRSH SPECIMEN W/BX 11/28/2016 - HERNIA REPAIR HX multiple - KNEE SURGERY HX Left x3 for torn cartilage - NASAL SURGERY PROCEDURE sinus - TOTAL ABDOM HYSTERECTOMY 1987 Cervical cancer - TUBAL LIGATION HX - WRIST SURGERY HX Right ganglion cyst removal x2 FAMILY HISTORY Problem Relation Age of Onset - Coronary Artery Disease Mother - Coronary Artery Disease Father - Asthma Brother - Coronary Artery Disease Brother - Diabetes Sister - Hypertension Sister - Diabetes Sister - Heart Sister - Allergies Sister - Asthma Sister - Allergies Sister - Emphysema Sister Early stages - COPD Paternal Uncle SOCIAL HISTORYSocial History Marital status: Spouse name: Years of education: Number of children: Occupational History 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 Social History Main Topics Smoking status: Former Smoker Packs/day: 1.00 Years: 28.00 Types: Cigarettes Start date: 1978 Quit date: 09/22/2005 Smokeless tobacco: Never Used Comment: Father smoked in childhood. 2nd spouse smoked in home. Alcohol use: No Drug use: No Sexual activity: No Social History Narrative 1 year in current home. No basement, 1 parakeet. Room A/C. Electric baseboard heat. MEDICATIONS/ALLERGIES Current Outpatient Prescriptions: COMPOUNDED PRESCRIPTION Please fit for BiPAP mask. Disp: 1 Each Rfl: 0 insulin glargine (LANTUS SOLOSTAR U-100 INSULIN) 100 unit/mL (3 mL) inpn Inject 56 Units subcutaneously twice daily. Inject 56 units subcutaneously twice daily Disp: 45 mL Rfl: 0 ONETOUCH ULTRA BLUE TEST STRIP test strip USE DIRECTED TO CHECK BLOOD SUGAR 4-5 TIMES DAILY Disp: 150 Strip Rfl: 3 ONETOUCH DELICA LANCETS 30 gauge misc USE TO CHECK BLOOD SUGAR 4-5 TIMES DALIY Disp: 150 Each Rfl: 3 insulin glargine (LANTUS SOLOSTAR U-100 INSULIN) 100 unit/mL (3 mL) inpn Inject 56 units subcutaneously twice daily Disp: Rfl: BIPAP Bilevel PAP 15/11 cmH2O with 2 LPM oxygen bleed in, mask, tubing, filters, heated humidity, lifetime supplies. Please fax 30 day compliance download to [phone]. Dx: G47.33, G47.39. DME: [facility] Disp: 1 Device Rfl: 0 COMPOUNDED PRESCRIPTION OCD Titration for portable oxygen concentrator Oxygen Flow Rate between 2-6 liters. To keep oxygen saturation at or above 92%. Disp: 1 Each Rfl: 0 mupirocin (BACTROBAN) 2 % ointment Apply 1 application to affected area three times daily. Disp: 1 Tube Rfl: 0 promethazine (PHENERGAN) 25 mg tablet Take 1 tablet by mouth every 6 hours as needed. Disp: 20 tablet Rfl: 0 insulin lispro (HUMALOG KWIKPEN INSULIN) 200 unit/mL (3 mL) injection Inject subcutaneously 14 units with breakfast, 22 units with lunch, and 24 units with dinner (Patient taking differently: 14 Units. Inject subcutaneously 14 units with breakfast, 22 units with lunch, and 24 units with dinner ) Disp: 18 mL Rfl: 5 LYRICA 100 mg capsule TAKE 1 CAPSULE BY MOUTH THREE TIMES A DAY Disp: 84 capsule Rfl: 5 capsaicin (ZOSTRIX-HP) 0.075 % topical cream Apply 1 application to affected area four times daily. Disp: 60 g Rfl: 2 ULTICARE PEN NEEDLE 31 gauge x 5/16 ndle USE DIRECTED. TO INJECT INSULINS Disp: 200 Each Rfl: 5 VITAMIN C 500 mg tablet TAKE 1 TABLET BY MOUTH DAILY Disp: 30 tablet Rfl: 0 Ferrous Gluconate (FERGON) 324 mg (38 mg iron) tablet TAKE 1 TABLET BY MOUTH DAILY WITH BREAKFAST Disp: 30 tablet Rfl: 0 STOOL SOFTENER 100 mg capsule TAKE 1 CAPSULE BY MOUTH DAILY Disp: 28 capsule Rfl: 3 CLAUDIA-KYLE 8.6 mg tab TAKE 1 TABLET BY MOUTH TWICE A DAY Disp: 56 tablet Rfl: 3 isosorbide mononitrate ER (IMDUR) 60 mg 24 hr tablet Take 1.5 tablets by mouth once daily. In the morning Disp: 30 tablet Rfl: 11 atorvastatin (LIPITOR) 40 mg tablet TAKE 1 TABLET BY MOUTH DAILY Disp: 28 tablet Rfl: 3 diltiazem CD (CARDIZEM CD, CARTIA XT) 180 mg 24 hr capsule TAKE 1 CAPSULE BY MOUTH EVERY MORNING Disp: 28 capsule Rfl: 3 levothyroxine (SYNTHROID) 100 mcg tablet TAKE 1 TABLET BY MOUTH EVERY MORNING Disp: 28 tablet Rfl: 3 omeprazole (PRILOSEC) 20 mg capsule TAKE 1 CAPSULE BY MOUTH EVERY MORNING Disp: 28 capsule Rfl: 3 ELIQUIS 2.5 mg tab tab(s) TAKE 1 TABLET BY MOUTH TWICE A DAY Disp: 56 tablet Rfl: 2 nitroglycerin sublingual (NITROQUICK) 0.4 mg SL tablet DISSOLVE 1 TAB UNDER THE TONGUE NEEDED FOR CHEST PAIN EVERY 5 MINUTES UP TO 3 TIMES. IF NO RELIEF CALL 911. Disp: 25 tablet Rfl: 10 metoprolol tartrate, short acting, (LOPRESSOR) 50 mg tablet Take 1 tablet by mouth twice daily. Disp: Rfl: glucose 4 gram chewable tablet Take 4 tablets by mouth as needed for Low Blood Sugar. Disp: 10 tablet Rfl: 3 OXYGEN, HOME THERAPY, Inhale 3 L/min as instructed as directed. Disp: Rfl: 0 fluticasone (FLONASE) 50 mcg/actuation nasal spray Use 2 Sprays in each nostril once daily. Disp: 16 g Rfl: 5 metFORMIN ER (GLUCOPHAGE XR) 500 mg 24 hr tablet Take 2 tablets by mouth twice daily. Disp: 360 tablet Rfl: 3 DULoxetine (CYMBALTA) 60 mg capsule Take 1 capsule by mouth once daily. Disp: 90 capsule Rfl: 3 aspirin, enteric coated (ASPIRIN, ENTERIC COATED) 81 mg EC tablet Take 1 tablet by mouth every morning. Disp: 90 tablet Rfl: 3 furosemide (LASIX) 40 mg tablet Take 1 tablet by mouth twice daily. Disp: Rfl: albuterol HFA (VENTOLIN HFA) 90 mcg/actuation inhaler Inhale 2 Puffs as instructed every 4 hours as needed for Wheezing/Shortness of Breath. Disp: 1 Inhaler Rfl: 5 COMPOUNDED PRESCRIPTION Evaluation for diabetic shoes and inserts Dx: E11.65, Z79.4 Disp: 1 Each Rfl: 0 Incontinence Pad, Liner, Disp pads 1 Device as needed (urinary incontinence). Prevail incontinence pads. Dx: urinary incontinence. Size: small Disp: 200 Each Rfl: 11 Blood Pressure Cuff - Home Use BLOOD PRESSURE CUFF FOR HOME USE. DX: LABILE BLOOD PRESSURE Disp: 1 Device Rfl: 0 Blood-Glucose Meter (ONETOUCH ULTRA2) monitoring kit UAD to test blood sugar Disp: 1 Each Rfl: 0 Alcohol Swabs padm UAD to clean skin before testing blood sugar and injecting insulins. Disp: 300 Each Rfl: 5 No current facility-administered medications for this visit. ALLERGIES Allergen Reactions - Adhesive Tape (Adrienne* Intolerance Surgical tape leaves rash Irritates skin badly and blisters along with medical tape - Cats Other: See Comments Congested and itchy, difficulty breathing - Dogs Other: See Comments Congestion, sneezing, and difficulty breathing - Orphenadrine Unknown - Ciprofloxacin Other: See Comments Red, hot, itchy rash - Keflex [Cephalexin] Hives - Niacin Unknown - Niacin Preparations - Penicillin G - Penicillins Unknown - Reglan [Metoclopram* Other: See Comments Unable to sleep - Xanthines Unknown REVIEW OF SYSTEMS General: No weight loss, malaise or fevers. 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 No neurological symptoms or problems. Respiratory: COPD, Obstructive Sleep Apnea (on BiPAP), continue oxygen 3 L Cardiovascular: Hypertension requiring meds, PTCA / PCI, DVT, PE, Anticoagulation therapy, for A fib GI: GERD : No history of UTI in past 6 weeks. No history of renal failure. Not currently on or requiring dialysis. No history of symptoms or problems. LOG CUT OFF SAWYER: No vaginal bleeding due to menopause and no abnormal vaginal discharge. Endocrine: Diabetes Mellitus on insulin, Diabetes Mellitus on oral agent Hematology: No history of bleeding or clotting disorder. No history of hematological symptoms or problems. Oncology: h/o cervical cancer Psych: Depression Skin: Negative for lesions, rash, and itching. PHYSICAL EXAM VITALS: BP 97/72 Pulse 61 Temp (Src) 97.5 (Oral) Ht 5' 2 (1.58m) Wt 219 lb (99.3kg) SpO2 97[3L Oxygen]% BMI 40.05 kg/(m2). General: Alert and oriented, Morbidly obese, examined on wheelchair Skin: No rash, no lesions. HEENT: EOM, pupils equal, round and reactive. Nasal canula, short neck Cardiovascular: Normal S1 AND S2, no rubs, murmurs or gallops. No JVD. Pulse regular. Lungs: Normal breath sounds, no wheezes or crackles. Abdomen: Soft, non-tender, no rigidity. Extremities: trace edema or tenderness, no joint swelling or clubbing. Neurological: Normal cognition . Pulses: Carotid and radial pulses normal +2. ASSESSMENT Ms. Panda is a 63 year old female referred to me for preoperative evaluation. Patient has the following medical comorbidities which might affect the perioperative course: - Atrial fibrillation, rate well controlled and anticoagulated with Eliqes. - CAD of the port lions vessel. Status post PCI (2003). Stable with no angina at rest or exertion.. - Chronic Congestive Heart Failure due to ischemic cardiomyopathy which is compensated. - COPD with severe Emphysema. The patient is on home oxygen at 3 L/min all times of the day due to chronic respiratory failure. - CKD, Stage 3, due to diabetes AND hypertension. 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 Patient is on oral medications and insulin. - Hypertension, well controlled. - Patient is morbidly obese related to excessive caloric intake. Body mass index is 40.06 kg/m?. - Patient with sleep apnea and uses BiPAP. - Hypothyroidism: on meds - Depression Cardiac Cath 12/23/2017: Single vessel LCX, with collateral and very small occlusion, none obstructive coronary arteries Patient's RCRI (Revised Cardiac Risk Index: CAD/CHF/Stroke or TIA/SCr>2/DM on Insulin/High Risk Surgery) score is 3 and for CAD, chf,IDDM and is at elevated risk for major adverse cardiac events in the perioperative period. Diagnostic tests reviewed for today's visit: PENDING PLAN/RECOMMENDATIONS CARDIAC: High risk cardiac patient as above Currently asymptomatic Patient is at optimal cardiac condition for scheduled surgery / procedure. Continue the following medications uninterrupted in the perioperative period: baby aspirin, metoprolol, imduor, cardiazem Restart Clopidogrel and Eliquas as early as possible after surgery. PULMONARY: Patient is at increased risk for postoperative pulmonary complications. Suggest the following in the post-operative period: Continue bronchodilator medications, Aggressive bronchopulmonary hygiene, CPAP/BiPAP at home setting (advised patient to bring their CPAP/BiPAP machine/mask), Minimize sedation/opioids as patient has PARESH and Early ambulation ENDOCRINE: DIABETES: - Initiate [facility] Guidelines for perioperative diabetes management. Check finger stick glucose on the morning of surgery. - Patient has been instructed on Preoperative DM medication management. RENAL: - Suggest following in the postoperative period due to patient's pre-existing renal disease: Avoid nephrotoxic medications Dose medications on estimated serum creatinine clearance Monitor fluid balance closely and avoid hypotension. Avoid dehydration / volume depletion Monitor serum creatinine VASCULAR/ANTICOAGULATION: VTE prophylaxis as deemed appropriate by the surgical service. Patient is optimally prepared for surgery pending labs Patient Instructions: As per patient instructions section. General Preoperative/Medication/Fasting Instructions Preoperative Diabetes Medication Instructions I have discussed the above recommendations with the patient in detail, in thelma and lay terms, and provided a written summary of instructions as needed. We have discussed that no surgery is without risk, but that the goal of preoperative assessment is to optimize that risk, and that was clearly understood by the patient. I have given ample opportunity for the patient to ask questions, and answered all questions to their stated satisfaction. STAFF SIGNATURE: Krzysztof Goodwin MD, MSC, [facility], FACP professor of geographypractical ministries professor, [facility], [facility] Staff, Department of Hospital Medicine Pager Number : [phone] January 23, 2018 11:26 AM Sara Baker Ma 01/23/2018 12:50 PM Signed Tamia Panda is a 63 year old female here today for visit in [facility] Referring Surgeon: Dr. Connolly Date of Surgery: 01/30/2018 Planned Surgery/Procedure: ENDOSCOPIC PER-ORAL PYLO Allergies have been reviewed and verified. They include the following: Adhesive Tape (Rosins); Cats; Dogs; Orphenadrine; Ciprofloxacin; Keflex [Cephalexin]; Niacin; Niacin Preparations; Penicillin G; Penicillins; Reglan [Metoclopramide Hcl]; Xanthines Social History Substance Use Topics - Smoking status: Former Smoker Packs/day: 1.00 Years: 28.00 Types: Cigarettes Start date: 1978 Quit date: 09/22/2005 - Smokeless tobacco: Never Used Comment: Father smoked in childhood. 2nd spouse smoked in home. - Alcohol use No Medications reviewed and updated: Yes Krzysztof Turner Ma 01/23/2018 12:[address] [facility] Patient Instructions for Surgery FOOD INSTRUCTIONS: NO solid food or non-clear liquids for 8 hours prior to the arrival time for your surgery. Unless you are instructed otherwise, you are allowed to drink up to 12 ounces of clear liquids (e.g. water, black tea/coffee, fruit juice without pulp, Saul Robert, etc.) up until 2 hours prior to the arrival time for surgery. MEDICATION INSTRUCTIONS: Prior to Surgery: Do not take the following medications for 7 days prior to surgery: - any NSAID's (e.g. Motrin, Aleve, Arthrotec, Naproxen,etc) - any herbal preparations - Plavix Do not take any Vitamin E / multivitamins for 10-14 days before surgery You are allowed to take Tylenol if needed until the day of surgery. Please bring your inhalers and or CPAP/BiPAP machine and mask when you come for your surgery. Do NOT STOP YOUR ASPIRIN as you have a cardiac/coronary stent. Continue all medications until the night prior to surgery Stop ELIQUIS 2 days prior to your surgery You will take 56 units of insulin glargine (LANTUS SOLOSTAR ) as usual the night before the surgery and will take 28 units only on the morning of your surgery MEDICATION INSTRUCTIONS: Day/Morning of Surgery: The following medications should be taken with sips of water: LYRICA, IMDUR, CARDIZEM , LIPITOR, levothyroxine , metoprolol tartrate, CYMBALTA Use your inhalers as needed / prescribed on day of surgery. Bring your inhaler with you to the hospital. You will skip LASIX, metFORMIN on the morning of your surgery only DIABETES MANAGEMENT INSTRUCTIONS: Eat a usual diet until the day prior to surgery unless indicated by your surgeon/physician. If your blood sugar is below 70 mg/dl at any time, treat with ? cup of apple juice or saul robert, or 4 glucose tabs or 1 tube of oral glucose gel. MEDICATION INSTRUCTIONS: Prior to Surgery: ? Continue all diabetic pills as scheduled including the evening prior to surgery. ? Continue your current injectable medications (eg: insulin, symlin, byetta, etc) as scheduled INCLUDING EVENING AND BEDTIME. MEDICATION INSTRUCTIONS: Day/Morning of Surgery: ? Do not take your Diabetic pills. ? GLARGINE/LANTUS: Take half of your usual dose of Lantus Insulin (28 units) If you have any questions or concerns regarding today's visit please do not hesitate to contact the [facility] center at [phone] or [phone], ext [phone]. STAFF SIGNATURE: Krzysztof Goodwin MD, MSC, [facility], FACP professor of geographypractical ministries professor, [facility], [facility] Staff, Department of Hospital Medicine January 23, 2018 12:24 PM Progress Notes ([facility]IN): Osmani Jorgensen RN 01/23/2018 2:33 PM Signed ANESTHESIA PRE-OPERATIVE ASSESSMENT (PACE) SERVICE DATE: 01/23/2018 SERVICE TIME: 1:26 pm ASSESSMENT AND PLAN: Tamia Panda is a 63 year old female scheduled for ENDOSCOPIC PER-ORAL PYLOROMYOTOMY per Surgery Request Case in MAIN on 01/30/18. PMH: 1. gastroparesis - on carafate, prilosec, phenergan 2. Pt saw CARDS 12/16/17 for pre op assessment she c/o chest pain at rest and with exertion (relieved with nitro) last episode few months ago awoke her from sleep, radiating down her arm- took two nitro tabs. scanned stress test 2015- lexiscan nuclear stress test with moderate to large inferolateral scar with minimal anterior ischemia, ef 76 with normal wall motion scanned echo 2013- ef 65- 70% mild lvh, rvsp 10mmHG. CARDS ordered LHC results were no obstructive coronary arteries on 12/23/17 ? 3.atrial fibrillation/flutter on eliquis to hold 2 days prior per impact. 4. htn takes metropolol 5. copd on 3 L oxygen 14/04, albuterol as needed 6. PARESH no cpap, pt to schedule a sleep study 7. PE 1997 8. DM on insulin and oral (fbs 120-160) A1C 6.1 (lantus 56 units BID, humalog kwik pin with meals, metformin 1000mg BID) severe neuropathy on lyrica 9. Anxiety 10. hypothyroid takes synthroid 11. hpl 12. Ex smoker quit in 2005 smoked for 28 years [employer]: 4 FC: IV METS: Walk indoors, such as around the house (1.75 METs) Take care of self; that is eating, dressing, bathing, using the toilet (2.75 METs) Patient denies any chest pain or undue shortness of breath with the above physical activity. ADDITIONAL DISCUSSION WITH PATIENT: Discussed with patient the possibilities of invasive monitoring, blood loss or possibiltiy of prolonged ICU stay and intubation. Patient WILL accept blood products. BLOOD WORK/PRODUCTS ORDERED: Type and Screen HISTORY OF CHRONIC PAIN: No PAIN MANAGEMENT OPTIONS: Routine/PRN IV and Final pain management plan will be discussed on the day of surgery. ANESTHETIC OPTIONS: General and Final anesthesia management options will be discussed on day of surgery. PRE-OP PLAN ORDERED: Aspiration prophylaxis, Diabetes orders, Day of surgery Labs: accucheck Patient Instructed: ? No solid food or non-clear liquids after midnight. Clear liquids allowed until two hours before scheduled arrival. ? Patient instructed to take the following medications with a sip of water: LYRICA, IMDUR, CARDIZEM , LIPITOR, levothyroxine , metoprolol tartrate, CYMBALTA Vital Signs: BP 97/72 Pulse 61 Temp 36.4 ?C (97.5 ?F) Ht 157 cm (5' 1.81) Wt 99 kg (218 lb 4.1 oz) SpO2 97% BMI 40.16 kg/m? BMI 40.16 kg/(m2) Vital signs completed by: IMPACT Weight acquired: per HANDP. Height acquired: per HANDP Airway Exam: MOUTH OPENING/TMJ: Full jaw ROM MICROGNATHIA/OVERBITE: No MALLAMPATI SCORE is III UPPER LIP BITE TEST: Unable to perform DENTITION: Edentulous/dentures THYROMENTAL DIST: WNL SHORT NECK: Yes - short/thick secondary to obesity. NECK CIRCUMFERENCE >40 cm: Neck Circumference measured at 49 cm NECK FLEX: Full ROM NECK EXTENSION: Full ROM AIRWAY HISTORY: IMPACT MICHELLE AIRWAY DETAIL: N/A DATA: EKG READING: Confirmed - Procedure Date : Dec 15 2017 09:03:30 Edit Date : Dec 15 2017 09:05:56 ? Diagnosis:ATRIAL FIBRILLATION INFERIOR MYOCARDIAL INFARCTION , AGE UNDETERMINED ABNORMAL ECG OTHER TESTS: Cardiac Cath 12/23/2017: Single vessel LCX, with collateral and very small occlusion, none obstructive coronary arteries scanned stress test 2015- lexiscan nuclear stress test with moderate to large inferolateral scar with minimal anterior ischemia, ef 76 with normal wall motion scanned echo 2013- ef 65- 70% mild lvh, rvsp 10mmHG ? PFT: Date: 2016 , Results: IMPRESSION: The TLC, FRC and RV are reduced indicating restriction. The diffusing capacity is moderately reduced. The presence of a reduced DLCO that normalizes when corrected for volume is consistent with a nonparenchymal disorder but does not rule out parenchymal or pulmonary vascular disease. The diffusing capacity corrected for volume is normal. Electronically Signed On 01-17-2017 8:09:02 EDT by Gayathri Jacome ? Chest X-ray: sep 2017 IMPRESSION: There is some flattening of hemidiaphragms No acute infiltrate or effusion : Lab Value Units Date High Low HB 11.8 g/dL 01/15/2018 15.5 11.5 HCT 37.7 % 01/15/2018 46.0 36.0 WBC 8.54 k/uL 01/15/2018 11.00 3.70 PLT 254 k/uL 01/15/2018 400 150 NA 145 mmol/L 01/15/2018 144 136 K 3.6 mmol/L 01/15/2018 5.1 3.7 GLUC 90 mg/dL 01/15/2018 99 74 BUN 16 mg/dL 01/15/2018 21 7 CREAT 0.62 mg/dL 01/15/2018 0.96 0.58 PTSEC 10.4 sec 12/15/2017 13.0 9.7 INR 1.0 no uni* 12/15/2017 1.3 0.9 APTT 25.9 sec 12/15/2017 32.4 23.0 ALT 11 U/L 01/15/2018 38 7 AST 15 U/L 01/15/2018 35 13 TBILI 0.5 mg/dL 01/15/2018 1.3 0.2 TSH No results within date range. Lab Value Units Date High Low HCGQT No results within date range. UHCG No results within date range. HCG, BODY* No results within date range. ABORHD A POSI* no uni* 12/15/2017 ABSCREEN NEG no uni* 12/15/2017 HBA1C: Hemoglobin A1C (%) Date Value 12/11/2017 6.3 07/29/2017 6.1 ) Patient accompanied by self Case Discussed with Dr Schofield OPTIMIZATION STATUS: Patient optimization pending Labs IMPACT SIGNATURE: Osmani Jorgensen RN PATIENT NAME: Tamia Panda DATE: January 23, 2018 TIME: 2:18 PM PAGER/CONTACT #: PROGRESS Observed: 01/05/2018 Status: COMPLETED Source: [place] 5:10 PM [facility] REPOSITORY HNO ID: [id number] Author: Saad (Rn) Larry Service: (none) Author Type: Registered Nurse Type: Progress Notes Filed: 01/05/2018 5:30 PM Note Text: TRANSITION CARE MANAGEMENT (TCM) INITIAL CONTACT Provider Action/FYI: questioned altered mental status possibly due to sleep apnea because pt not wearing BiPAP and these episodes have all occurred in the morning. Initial contact with patient post discharge, spoke to patient. Patient identified by name and . SUMMARY: -Pt discharged from [facility] on 01/04. -Follow up appointment on 01/15 w/PCP. -Medication review done no. -Admitted for: Altered mental status CONCERNS: Discussed concern of possible carbon monoxide exposure and pt to ask landlord for carbon monoxide monitor. Discussed wearing BiPap at night, pt states she hates it. Discussed two times her altered mental status has been in morning and MD concerned it may be due to sleep apnea. Offered to have [employer] show pt different mask choices but pt declined. Pt states they had her on sliding scale in hospital but she is back on metformin now she is home. NEW MEDICATIONS: None MEDS HELD/DISCONTINUED: None BRIEF HOSPITAL COURSE: Admitted on 01/02/18 for acute mental status change. She was found to be more lethargic at home, reported by her son. She was somnolent in the ED, arousable, but not able to stay awake. Work-up in the ED including CT, CXR, EKG and CBC were unremarkable, however, she was found to have hypokalemia and hypercapnia. BS was normal. She had similar episode in the past, admitted twice in past one year. It was thought to be due to infection at one time, and hypoglycemia for the other. #1 acute mental status change. Etiology is not clear, but she had significant elevation of PCO2 on ABG. Her baseline is 40 to 55, presents with 64. pH 7.39, unremarkable, with PO2 115 with oxygen. HCO3 39. No signs of infectious process. CT of head was unremarkable. Urine toxicology negative. ABG was repeated, PCO2 improved to 48, which is in the range of baseline. She has not been wearing BiPAP at all at home. Incidentally, previous episodes of confusion happened in the morning. 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 CO2 retention may be happening during the night associated with sleep apnea. Clinically, she had improved significantly each day, and she is back to baseline. Plan to discharge to home today, Encourage her to wear BiPAP during the night. #2 Hypokalemia. Potassium 2.9. Give IVP KCL and oral K-Dur. Mg normal. Monitor BMP. #3 DM II. Hold metformin. Add sliding scale insulin. #4 Hypothyroidism. Continue levothyroxine. #5 COPD / chronic respiratory failure / APRESH. Continue supplemental oxygen. Bronchodilator. Encourage BiPAP for now, but she had refused to wear. Saad Silvestre RN January 05, 2018 5:28 PM MELCHOR Observed: 01/05/2018 Status: COMPLETED Source: [place] 12:00 AM [facility] REPOSITORY Patient Outreach ([facility]WS) TAMIA PANDA ([id number]) 1955 F Date Time Provider Department 01/05/18 SAAD SILVESTRE (RN) [facility] During your visit today, we recorded the following information about you: Saad Silvestre RN 01/05/2018 5:30 PM Signed TRANSITION CARE MANAGEMENT (TCM) INITIAL CONTACT Provider Action/FYI: questioned altered mental status possibly due to sleep apnea because pt not wearing BiPAP and these episodes have all occurred in the morning. Initial contact with patient post discharge, spoke to patient. Patient identified by name and . SUMMARY: -Pt discharged from [facility] on 01/04. -Follow up appointment on 01/15 w/PCP. -Medication review done no. -Admitted for: Altered mental status CONCERNS: Discussed concern of possible carbon monoxide exposure and pt to ask landlord for carbon monoxide monitor. Discussed wearing BiPap at night, pt states she hates it. Discussed two times her altered mental status has been in morning and concerned it may be due to sleep apnea. Offered to have [employer] show pt different mask choices but pt declined. Pt states they had her on sliding scale in hospital but she is back on metformin now she is home. NEW MEDICATIONS: None MEDS HELD/DISCONTINUED: None BRIEF HOSPITAL COURSE: Admitted on 01/02/18 for acute mental status change. She was found to be more lethargic at home, reported by her son. She was somnolent in the ED, arousable, but not able to stay awake. Work-up in the ED including CT, CXR, EKG and CBC were unremarkable, however, she was found to have hypokalemia and hypercapnia. BS was normal. She had similar episode in the past, admitted twice in past one year. It was thought to be due to infection at one time, and hypoglycemia for the other. #1 acute mental status change. Etiology is not clear, but she had significant elevation of PCO2 on ABG. Her baseline is 40 to 55, presents with 64. pH 7.39, unremarkable, with PO2 115 with oxygen. HCO3 39. No signs of infectious process. CT of head was unremarkable. Urine toxicology negative. ABG was repeated, PCO2 improved to 48, which is in the range of baseline. She has not been wearing BiPAP at all at home. Incidentally, previous episodes of confusion happened in the morning. 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 CO2 retention may be happening during the night associated with sleep apnea. Clinically, she had improved significantly each day, and she is back to baseline. Plan to discharge to home today, Encourage her to wear BiPAP during the night. #2 Hypokalemia. Potassium 2.9. Give IVP KCL and oral K-Dur. Mg normal. Monitor BMP. #3 DM II. Hold metformin. Add sliding scale insulin. #4 Hypothyroidism. Continue levothyroxine. #5 COPD / chronic respiratory failure / PARESH. Continue supplemental oxygen. Bronchodilator. Encourage BiPAP for now, but she had refused to wear. Saad Silvestre RN January 05, 2018 5:28 PM Nanda Oliveira MD 01/06/2018 12:07 PM Signed Reviewed. Allergies As of Date: 01/05/2018 Noted Allergy Reaction ADHESIVE TAPE (ROSINS) 04/04/2015 5 - Intolerance Comments: Surgical tape leaves rash Irritates skin badly and blisters along with medical tape CATS 04/10/2016 14 - Other: See Comments Comments: Congested and itchy, difficulty breathing DOGS 04/10/2016 14 - Other: See Comments Comments: Congestion, sneezing, and difficulty breathing ORPHENADRINE 04/10/2016 16 - Unknown CIPROFLOXACIN 12/11/2011 14 - Other: See Comments Comments: Red, hot, itchy rash KEFLEX (CEPHALEXIN) 07/10/2016 4 - Hives NIACIN 04/04/2015 16 - Unknown NIACIN PREPARATIONS 10/18/2004 PENICILLIN G 10/18/2004 PENICILLINS 04/04/2015 16 - Unknown REGLAN (METOCLOPRAMIDE HCL) 03/04/2017 14 - Other: See Comments Comments: Unable to sleep XANTHINES 10/18/2004 16 - Unknown Date Reviewed: 01/01/2018 Reviewed by: Yessi Sanchez LPN - Fully Assessed Reason for Visit: [facility] Follow Up [3610] Prescriptions as of 01/05/2018 Sig: SUCRALFATE 100 MG/ML ORAL GISELLE* Take 10 mL by mouth four time* COMPOUNDED PRESCRIPTION OCD Titration for portable ox* MUPIROCIN 2 % TOPICAL OINTMENT Apply 1 application to affect* PROMETHAZINE 25 MG TABLET Take 1 tablet by mouth every * INSULIN LISPRO (U-200) 200 UN* Inject subcutaneously 14 unit* Patient taking differently: 14 Units. Inject subcutaneous* LYRICA 100 MG CAPSULE TAKE 1 CAPSULE BY MOUTH THREE* CAPSAICIN 0.075 % TOPICAL CRE* Apply 1 application to affect* ULTICARE PEN NEEDLE 31 GAUGE * USE DIRECTED. TO INJECT IN* VITAMIN C 500 MG TABLET TAKE 1 TABLET BY MOUTH DAILY FERROUS GLUCONATE 324 MG (38 * TAKE 1 TABLET BY MOUTH DAILY * INSULIN GLARGINE (U-100) 100 * Inject 60 units subcutaneousl* STOOL SOFTENER 100 MG CAPSULE TAKE 1 CAPSULE BY MOUTH DAILY CLAUDIA-KYLE 8.6 MG TABLET TAKE 1 TABLET BY MOUTH TWICE * ISOSORBIDE MONONITRATE ER 60 * Take 1.5 tablets by mouth onc* ATORVASTATIN 40 MG TABLET TAKE 1 TABLET BY MOUTH DAILY DILTIAZEM SR 180 MG 24 HR CAP TAKE 1 CAPSULE BY MOUTH EVERY* LEVOTHYROXINE 100 MCG TABLET TAKE 1 TABLET BY MOUTH EVERY * OMEPRAZOLE 20 MG CAPSULE,MARIA EUGENIA* TAKE 1 CAPSULE BY MOUTH EVERY* ELIQUIS 2.5 MG TABLET TAKE 1 TABLET BY MOUTH TWICE * NITROGLYCERIN 0.4 MG SUBLINGU* DISSOLVE 1 TAB UNDER THE TONG* METOPROLOL TARTRATE 50 MG TAB* Take 1 tablet by mouth twice * GLUCOSE 4 GRAM CHEWABLE TABLET Take 4 tablets by mouth as ne* OXYGEN (HOME THERAPY) Inhale 3 L/min as instructed * FLUTICASONE 50 MCG/ACTUATION * Use 2 Sprays in each nostril * METFORMIN ER 500 MG TABLET,EX* Take 2 tablets by mouth twice* DULOXETINE 60 MG CAPSULE,MARIA EUGENIA* Take 1 capsule by mouth once * ASPIRIN 81 MG TABLET,DELAYED * Take 1 tablet by mouth every * FUROSEMIDE 40 MG TABLET Take 1 tablet by mouth twice * ALBUTEROL SULFATE HFA 90 MCG/* Inhale 2 Puffs as instructed * COMPOUNDED PRESCRIPTION Evaluation for diabetic shoes* BLOOD SUGAR DIAGNOSTIC STRIPS Use as directed to check bloo* LANCETS 33 GAUGE Use as directed to check bloo* INCONTINENCE PAD, LINER, DISP* 1 Device as needed (urinary i* COMPOUNDED PRESCRIPTION BLOOD PRESSURE CUFF FOR HOME * BLOOD-GLUCOSE METER KIT UAD to test blood sugar ALCOHOL SWABS UAD to clean skin before test* Problem List As Of Date 01/05/2018 Noted Resolved SUBJECTIVE TINNITUS [H93.19] INVALID FOR* Obstructive sleep apnea [G47.33] INVALID FOR* Hyperlipidemia [E78.5] INVALID FOR* Coronary disease [I25.10] INVALID FOR* Diabetes mellitus, type II (HCC) [E11.9] INVALID FOR* Morbid obesity ([facility]) [E66.01] Hypothyroidism [E03.9] Anxiety [F41.9] Sleep apnea [G47.30] 02/14/2017 Essential hypertension [I10] Coronary artery disease of [place] artery of [place]* AF (paroxysmal atrial fibrillation) ([facility]) [I48.* COPD (chronic obstructive pulmonary disease) (H* GERD without esophagitis [K21.9] Dysphagia [R13.10] Constipation [K59.00] DM type 2 (diabetes mellitus, type 2) ([facility]) [E1* 02/14/2017 Shortness of breath [R06.02] 02/14/2017 Arthritis [M19.90] More... CHF (congestive heart failure) ([facility]) [I50.9] BPPV (benign paroxysmal positional vertigo) [H8*INVALID FOR* RLS (restless legs syndrome) [G25.81] INVALID FOR* Iron deficiency concern: RE RLS [E61.1] INVALID FOR* Tubular adenoma [D36.9] INVALID FOR* Incontinence [R32] More... Gastroparesis [K31.84] INVALID FOR* Pre-op testing [Z01.818] INVALID FOR* More... Encounter Status:Closed by SAAD SILVESTRE on 01/06/18 DISCHARGE SUMMARY Observed: 01/04/2018 Status: F Source: KINJAL 2:56 PM [facility] REPOSITORY [facility] Medical Records Department [address] [place] [address] Discharge Summary 01/04/18 1450 MR#: [id number] Acct: [id number] Name: TAMIA PANDA Rep #: [id number] : 1955 62 From: Shruthi Christie MD PCP: Bhupendra Oliveira MD Status: ADM NICOLE Y Location: [place] [address] Discharge Date and Diagnosis - Problem List Patient Problems: Active and Suspected Problems Mental status alteration (Acute) Date of Admission: 01/02/18 Date of Discharge: 01/04/18 - Primary Discharge Diagnosis Active and Suspected Problems Mental status alteration (Acute) - Secondary Discharge Diagnosis Chronic Problems Diabetes mellitus type 2 in obese (Chronic) Coronary arteriosclerosis (Chronic) cath 05/2015 mild-moderate disease medical therapy recommended Hypothyroidism (Chronic) Hyperlipemia (Chronic) GERD (gastroesophageal reflux disease) (Chronic) Hypertension (Chronic) COPD (chronic obstructive pulmonary disease) (Chronic) Chronic respiratory insufficiency (Chronic) On home oxygen at night S/P PTCA (percutaneous transluminal coronary angioplasty) (Chronic) PARESH (obstructive sleep apnea) (Chronic) Hospital Course and Treatment Imaging Results: Diagnostic Data Brain CT 01/02/18 09:44 IMPRESSION: 1. Chronic involutional changes of the brain. 2. No CT evidence of acute intracranial hemorrhage. 3. Sequela of extensive paranasal sinus surgery. Electronically Signed: Jelly Terrazas MD at 11:12 EDT , Service support , Chest X-Ray 01/02/18 09:44 IMPRESSION: Cardiomegaly and mild pulmonary congestion similar to previous study. Electronically Signed: Jelly Terrazas MD at 10:14 EDT , Service support , CUSTOMER COUNTER REPRESENTATIVE: None. Operations: None Procedures: None Summary of Care Provided: Patient is a 62 years old female who was admitted on 01/02/18 for acute mental status change. She was found to be more lethargic at home, reported by her son. She was somnolent in the ED, arousable, but not able to stay awake. Work-up in the ED including CT, CXR, EKG and CBC were unremarkable, however, she was found to have hypokalemia and hypercapnia. BS was normal. She had similar episode in the past, admitted twice in past one year. It was thought to be due to infection at one time, and hypoglycemia for the other. #1 acute mental status change. Etiology is not clear, but she had significant elevation of PCO2 on ABG. Her baseline is 40 to 55, presents with 64. pH 7.39, unremarkable, with PO2 115 with oxygen. HCO3 39. No signs of infectious process. CT of head was unremarkable. Urine toxicology negative. ABG was repeated, PCO2 improved to 48, which is in the range of baseline. She has not been wearing BiPAP at all at home. Incidentally, previous episodes of confusion happened in the morning. 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 CO2 retention may be happening during the night associated with sleep apnea. Clinically, she had improved significantly each day, and she is back to baseline. Plan to discharge to home today, Encourage her to wear BiPAP during the night. #2 Hypokalemia. Potassium 2.9. Give IVP KCL and oral K-Dur. Mg normal. Monitor BMP. #3 DM II. Hold metformin. Add sliding scale insulin. #4 Hypothyroidism. Continue levothyroxine. #5 COPD / chronic respiratory failure / PARESH. Continue supplemental oxygen. Bronchodilator. Encourage BiPAP for now, but she had refused to wear. Patient is full code. Disposition: home Discharge Activity: Return to Normal Activity Home Medications: Medications to take at Discharge Duloxetine Hcl [Cymbalta] 60 mg PO DAILY 06/19/15 Levothyroxine [Synthroid] 100 mcg PO DAILY 06/19/15 Docusate Sodium [Col-Rite] 100 mg PO DAILY 08/27/16 Metformin HCl [Glucophage] 1,000 mg PO BIDCM 08/27/16 Omeprazole [Prilosec] 20 mg PO DAILY 08/27/16 Aspirin [Aspirin, Baby] 81 mg PO DAILY@0800 09/02/16 Atorvastatin Calcium [Lipitor] 40 mg PO QHS 09/02/16 Ferrous Gluconate 1 tab PO DAILY 01/01/17 Isosorbide Mononitrate [Isosorbide Mononitrate ER] 1.5 tab PO 0800 01/01/17 Apixaban [Eliquis] 2.5 mg PO BID 05/12/17 Ascorbic Acid [Vitamin C] 500 mg PO DAILY@0800 05/12/17 Pregabalin [Lyrica] 100 mg PO TID 05/12/17 Albuterol Inhaler [Ventolin Hfa] 2 puff INHALATION Q4H PRN PRN 10/16/17 Capsaicin 1 applicatio TOPICAL 4X/DAY 12/22/17 Dextrose [Glucose] 4 gm PO PRN PRN 12/22/17 Insulin Glargine [Lantus SoloStar Pen] 70 units SC BID 12/22/17 Insulin Lispro [Humalog KwikPen] 16 unit SQ BREAKFAST 12/22/17 Sennosides [Claudia-Kyle] 1 tab PO DAILY 12/22/17 Clopidogrel Bisulfate [Plavix] 75 mg PO DAILY 12/23/17 Furosemide [Lasix] 40 mg PO BID 12/23/17 Diltiazem CD [Cardizem CD] 180 mg PO DAILY 01/02/18 Insulin Lispro [Humalog Kwikpen U-200] 22 unit SQ LUNCH 01/02/18 Insulin Lispro [Humalog Kwikpen U-200] 24 unit SQ DINNER 01/02/18 Metoprolol Tartrate [Lopressor (beta sudhakar)] 50 mg PO BID 01/02/18 Primary Care Physician: Bhupendra Oliveira MD [Primary Care Provider] - Please follow up with your Primary Care Physician in: 5 to 7 days Medical Necessity - Tobacco Use Smoking Status: Former smoker Meaningful Use Info Meaningful Use Diagnoses (Choose all that apply): None applicable Code Visit OBSV E AND M: [id number] Observation care discharge 01/04/18 1456 <Electronically signed by Shruthi Christie MD> Date Shruthi Christie MD Cosigner Signature (if applicable): Date CC: Bhupendra Oliveira MD; Shruthi Christie M.D. Signed DISCHARGE INSTRUCTION Observed: 01/04/2018 Status: F Source: MEARS 2:49 PM [facility] REPOSITORY [facility] Medical Records Department [address] [place] [address] Instructions for Home/Discharge Instructions 01/04/18 1448 MR#: [id number] Acct: [id number] Name: TAMIA PANDA Rep #: [id number] : 1955 62 From: Shruthi Christie MD PCP: Bhupendra Oliveira MD Status: ADM NICOLE - Discharge Diagnoses Current Active Problems: Current Active and Chronic Problems Mental status alteration (Acute) You will use the following diet at home:: Calorie/Carbohydrate Controlled (specify 1200, 1400, etc) - 1999, Cardiac Your food should be the consistency of: Regular Your liquids should be the consistency of: Regular/Thin Discharge Activity: Return to Normal Activity Allergies/Adverse Reactions: Allergies ciprofloxacin [From Cipro] Allergy (Verified 01/02/18 09:39) Hives latex Allergy (Verified 01/02/18 09:39) matos me niacin [From Niaspan Extended-Release] Allergy (Verified 01/02/18 09:39) Hives Penicillins Allergy (Verified 01/02/18 09:39) Itching/redness orphenadrine citrate [From Norgesic] Adverse Reaction (Verified 01/02/18 09:39) groggy medical tape Adverse Reaction (Uncoded 01/02/18 09:39) blisters Medications to take at Discharge Duloxetine Hcl [Cymbalta] 60 mg PO DAILY 06/19/15 Levothyroxine [Synthroid] 100 mcg PO DAILY 06/19/15 Docusate Sodium [Col-Rite] 100 mg PO DAILY 08/27/16 Metformin HCl [Glucophage] 1,000 mg PO BIDCM 08/27/16 Omeprazole [Prilosec] 20 mg PO DAILY 08/27/16 Aspirin [Aspirin, Baby] 81 mg PO DAILY@0800 09/02/16 Atorvastatin Calcium [Lipitor] 40 mg PO QHS 09/02/16 Ferrous Gluconate 1 tab PO DAILY 01/01/17 Isosorbide Mononitrate [Isosorbide Mononitrate ER] 1.5 tab PO 0800 01/01/17 Apixaban [Eliquis] 2.5 mg PO BID 05/12/17 Ascorbic Acid [Vitamin C] 500 mg PO DAILY@0800 05/12/17 Pregabalin [Lyrica] 100 mg PO TID 05/12/17 Albuterol Inhaler [Ventolin Hfa] 2 puff INHALATION Q4H PRN PRN 10/16/17 Capsaicin 1 applicatio TOPICAL 4X/DAY 12/22/17 Dextrose [Glucose] 4 gm PO PRN PRN 12/22/17 Insulin Glargine [Lantus SoloStar Pen] 70 units SC BID 12/22/17 Insulin Lispro [Humalog KwikPen] 16 unit SQ BREAKFAST 12/22/17 Sennosides [Claudia-Kyle] 1 tab PO DAILY 12/22/17 Clopidogrel Bisulfate [Plavix] 75 mg PO DAILY 12/23/17 Furosemide [Lasix] 40 mg PO BID 12/23/17 Diltiazem CD [Cardizem CD] 180 mg PO DAILY 01/02/18 Insulin Lispro [Humalog Kwikpen U-200] 22 unit SQ LUNCH 01/02/18 Insulin Lispro [Humalog Kwikpen U-200] 24 unit SQ DINNER 01/02/18 Metoprolol Tartrate [Lopressor (beta sudhakar)] 50 mg PO BID 01/02/18 Primary Care Physician: Bhupendra Oliveira MD [Primary Care Provider] - Please follow up with your Primary Care Physician in: 5 to 7 days 01/04/18 1449 <Electronically signed by Shruthi Christie MD> Date Shruthi Christie MD CC: Bhupendra Oliveira MD TROPONIN-I Collected: 01/04/2018 Status: F Source: KINJAL 1:40 PM [facility] REPOSITORY Order Comment: 'TROP' Serial specimen #1, #2, #3, or #4: 4 TYPE CODE TESTS RESULT OUT OF RANGE REFERENCE UNITS LAB L501.4010 <0.06 ng/mL Normal < 0.02 TROPONIN-I Result Comment: TROPONIN-I EXPECTED VALUES <0.05 NEGATIVE 0.06 - 0.59 AT RISK OF DC > OR = 0.60 SUGGEST DC Performed By: #### L501.4010 #### [facility] [address] [place], [address] BEDSIDE GLUCOSE Collected: 01/04/2018 Status: F Source: KINJAL 11:29 AM [facility] REPOSITORY TYPE CODE TESTS RESULT OUT OF REFERENCE UNITS RANGE LAB L501.080 70-110 mg/dL High BEDSIDE GLU 307 Result Comment: MANAGEMENT OF PATIENT CARE PER NURSING PROTOCOL Performed By: #### L501.080 #### [facility] Point of Care [address] [place] [address] HISTORY AND PHYSICAL Observed: 01/04/2018 Status: F Source: KINJAL EXAM 8:20 AM [facility] REPOSITORY [facility] Medical Records Department [address] [place] [address] History and Physical 01/02/182024 MR#: [id number] Acct: [id number] Name: TAMIA PANDA Rep #: [id number] : 1955 62 From: Shruthi Christie MD PCP: Bhupendra Oliveira MD Status: ADM NICOLE Y Location: [place] [address] ADDENDUM by Shruthi Christie M.D. on 01/04/18 at 0820 Code Visit OBSV E AND M: [id number] Initial observation care L3 01/04/18 0820 <Electronically signed by Shruthi Christie MD> Date Shruthi Christie MD cc: Bhupendra Oliveira MD; Shruthi Christie M.D. * Signed Problem List (1) Mental status alteration Status: Acute Qualifiers: Altered mental status type: somnolence Qualified Code(s): R40.0 - Somnolence (2) Diabetes mellitus type 2 in obese Status: Chronic (3) Coronary arteriosclerosis Status: Chronic Comment: cath 05/2015 mild-moderate disease medical therapy recommended (4) Hypothyroidism Status: Chronic Qualifiers: Hypothyroidism type: acquired Qualified Code(s): E03.9 - Hypothyroidism, unspecified (5) COPD (chronic obstructive pulmonary disease) Status: Chronic Qualifiers: COPD type: emphysema Emphysema type: centrilobular Qualified Code(s): J43.2 - Centrilobular emphysema (6) Chronic respiratory insufficiency Status: Chronic Comment: On home oxygen at night (7) PARESH (obstructive sleep apnea) Status: Chronic History of Present Illness Date of Admission: 01/02/18 Chief Complaint: Confusion / somnolence. Patient is a 62 years old female who was admitted on 01/02/18 for acute mental status change. She was found to be more lethargic at home, reported by her son. She was somnolent in the ED, arousable, but not able to stay awake. Work-up in the ED including CT, CXR, EKG and CBC were unremarkable, however, she was found to have hypokalemia and hypercapnia. BS was normal. She had similar episode in the past, admitted twice in past one year. It was thought to be due to infection at one time, and hypoglycemia for the other. Past Medical History Past Medical History (Chronic Problems): Chronic Problems Diabetes mellitus type 2 in obese (Chronic) Coronary arteriosclerosis (Chronic) cath 05/2015 mild-moderate disease medical therapy recommended Hypothyroidism (Chronic) Hyperlipemia (Chronic) GERD (gastroesophageal reflux disease) (Chronic) Hypertension (Chronic) COPD (chronic obstructive pulmonary disease) (Chronic) Chronic respiratory insufficiency (Chronic) On home oxygen at night S/P PTCA (percutaneous transluminal coronary angioplasty) (Chronic) PARESH (obstructive sleep apnea) (Chronic) Allergies ciprofloxacin [From Cipro] Allergy (Verified 01/02/18 09:39) Hives latex Allergy (Verified 01/02/18 09:39) matos me niacin [From Niaspan Extended-Release] Allergy (Verified 01/02/18 09:39) Hives Penicillins Allergy (Verified 01/02/18 09:39) Itching/redness orphenadrine citrate [From Norgesic] Adverse Reaction (Verified 01/02/18 09:39) groggy medical tape Adverse Reaction (Uncoded 01/02/18 09:39) blisters Home Medications: Ambulatory Orders Medication Instructions Recorded Duloxetine Hcl [Cymbalta] 60 mg PO DAILY 06/19/15 Levothyroxine [Synthroid] 100 mcg PO DAILY 06/19/15 Docusate Sodium [Col-Rite] 100 mg PO DAILY 08/27/16 Surgical History: angioplasty, cholecystectomy, herniorrhaphy, hysterectomy, - - tubal ligation. Psychiatric History: No pertinent psych hx LOG CUT OFF SAWYER History: No pertinent LOG CUT OFF SAWYER history Smoking Status: Former smoker - *Family History Maternal History Items: No pertinent history Paternal History Items: Heart Disease, Stroke - age 62 Offspring History Items: No pertinent history - 5 children, 32 grand children and great grandchildren Review of Systems Comment: ROS: In general: She has been in fair health, apparently doing as usual until yesterday. No fever, chills, or change in appetite. HEENT: Unremarkable. Patient denied of any dizziness, chronic headache, blurred vision, double vision, dry mouth, or nasal congestion. CV/respiratory: There is no exertional shortness of breath, chest pain, palpitation, wheezing, cough, claudication, cold feet, or peripheral edema. GI: Patient denied any abdominal pain, nausea, vomiting, diarrhea, constipation, melena, or hematochezia. : Patient denied any significant urinary symptoms. Neurology: Unremarkable. There is no history of seizure as an adult. Psychological: Unremarkable. . Endocrine: Unremarkable. Musculoskeletal: Unremarkable. VTE Information - Inpt Only VTE Present on Admission: No VTE Mechan Device Prophylaxis: SCD's VTE Pharm Prophylaxis ordered?: Yes Patient Problems: Active and Suspected Problems Mental status alteration (Acute) Objective: In general, patient is a well-nourished and developed adult. She is somewhat somnolent, but stayed awake most of the time. HEENT: Head is atraumatic, and normocephalic. Pupils are equal, round, and reactive to light and accommodations. Neck is supple. There is no lymphadenopathy, or thyromegaly. Oral mucosa is pink, and moist. There are no lesions. Heart: Auscultation is normal with regular rhythm and rate. There is no extra heart sounds, or murmurs. S1 and S2 are present. Point of maximal impulse is not displaced. Lungs: Diminished breath sounds bilaterally. There is no wheezing, or crackles. Abdomen: Abdominal wall is non-tender, and non-distended. There is no palpable mass or organomegaly. Normoactive bowel sounds are present. Extremities: There is no cyanosis or clubbing. Peripheral pulses are palpable. There is no edema. Skin: There are no any skin discoloration or lesions. Neurological: CN II - XII are intact. Sensory and motor functions are grossly normal with no obvious deficit. Cerebellar functions are within normal range. Gait was not tested. - Physical Exam Vital Signs Temp Pulse Resp BP Pulse Ox 98.3 F 112 H 20 H 138/77 H 96 01/02/18 19:57 01/02/18 19:57 01/02/18 19:57 01/02/18 19:57 01/02/18 19:57 Oxygen Flow Rate (L/min) 3 Oxygen Delivery Method Nasal Cannula Weight: 219 lb 9.286 oz Body Mass Index (BMI) 40.1 Intake and Output for Last 24 Hours Intake Total 240 / 240 Output Total 670 / 670 Balance -430 / -430 Laboratory Tests Past 24 Hrs Urine Opiates Screen NEGATIVE Urine Methadone Screen NEGATIVE Ur Barbiturates Screen NEGATIVE Ur Phencyclidine Scrn NEGATIVE POC Glucose POC Glucose [address] 01/02/18 09:44 IMPRESSION: 1. Chronic involutional changes of the brain. 2. No CT evidence of acute intracranial hemorrhage. 3. Sequela of extensive paranasal sinus surgery. Electronically Signed: Jelly Terrazas MD at 11:12 EDT , Service support , Chest X-Ray 01/02/18 09:44 IMPRESSION: Cardiomegaly and mild pulmonary congestion similar to previous study. Electronically Signed: Jelly Terrazas MD at 10:14 EDT , Service support , Assessment/Plan Active and Suspected Problems Mental status alteration (Acute) Patient is a 62 years old female who was admitted on 01/02/18 for acute mental status change. She was found to be more lethargic at home, reported by her son. She was somnolent in the ED, arousable, but not able to stay awake. Work-up in the ED including CT, CXR, EKG and CBC were unremarkable, however, she was found to have hypokalemia and hypercapnia. BS was normal. She had similar episode in the past, admitted twice in past one year. It was thought to be due to infection at one time, and hypoglycemia for the other. #1 acute mental status change. Etiology is not clear, but she had significant elevation of PCO2 on ABG. Her baseline is 40 to 55, presents with 64. pH 7.39, unremarkable, with PO2 115 with oxygen. HCO3 39. No signs of infectious process. CT of head was unremarkable. Try BiPAP mask, plan to repeat ABG. #2 Hypokalemia. Potassium 2.9. Give IVP KCL and oral K-Dur. Check Mg level in AM. #3 DM II. Hold metformin. Add sliding scale insulin. #4 Hypothyroidism. Continue levothyroxine. #5 COPD / chronic respiratory failure / PARESH. Continue supplemental oxygen. Bronchodilator. Encourage BiPAP for now, but she had refused to wear. VTE prophylaxis: heparin / SCD. GI prophylaxis: PPI po. Patient is full code. Disposition: home in 1 to 2 days. Code Visit Inpatient E AND M: [id number] Init Hosp 01/04/1815 <Electronically signed by Shruthi Christie MD> Date Shruthi Christie MD Cosigner Signature: Date (if applicable) CC: Bhupendra Oliveira MD; Shruthi Christie M.D. Signed BEDSIDE GLUCOSE Collected: 01/04/2018 Status: F Source: KINJAL 6:45 AM [facility] REPOSITORY TYPE CODE TESTS RESULT OUT OF REFERENCE UNITS RANGE LAB L501.080 70-110 mg/dL High BEDSIDE GLU 134 Result Comment: MANAGEMENT OF PATIENT CARE PER NURSING PROTOCOL Performed By: #### L501.080 #### [facility] Point of [place] [address] [place] [address] CBC-COMPLETE BLOOD CNT Collected: 01/04/2018 Status: F Source: KINJAL NO DIFF 4:07 AM [facility] REPOSITORY TYPE CODE TESTS RESULT OUT OF RANGE REFERENCE UNITS LAB L100.1000 4.4-11.0 K/mm3 Normal WBC 6.8 LAB L100.1200 4.2-5.4 M/mm3 Low RBC 3.89 LAB L100.1300 12.0-15.0 g/dl Low HGB 11.8 LAB L100.1400 37-47 % Normal HCT 37.8 LAB L100.1500 81-99 fL Normal MCV 97.2 LAB L100.1600 27.0-32.0 pg Normal MCH 30.3 LAB L100.1700 32-36 g/gl Low MCHC 31.2 LAB L100.1810 11.6-14.6 % High RDW CV 15.1 LAB L100.1820 35.1-43.9 fl High RDW SD 53.2 LAB L100.1900 150-450 K/mm3 Normal PLT 158 LAB L100.2000 6.2-12.0 fl Normal MPV 11.4 Performed By: #### L100.0500 #### [facility] [address] [place], [address] BASIC METABOLIC Collected: 01/04/2018 Status: F Source: KINJAL PROFILE (BMP) 4:07 AM [facility] REPOSITORY Order Comment: 'TROP' Serial specimen #1, #2, #3, or #4: 2 TYPE CODE TESTS RESULT OUT OF RANGE REFERENCE UNITS LAB L501.0100 74-106 mg/dL High GLU 116 Result Comment: Fasting Glucose result from 100 to 125 mg/dL suggests IMPAIRED HOMEOSTASIS per A.D.A. criteria. Please note revised GLUCOSE reference range effective 2017. LAB L501.1000 7-18 mg/dL Normal BUN 14 LAB L501.1100 0.55-1.02 mg/dL Low CREAT,SERUM 0.50 Result Comment: The validity of the calculated GFR AND GFRAA in patients over 70 years has not been determined. Clinical correlation is essential. LAB L501.1110 >60 mL/min Normal EST GFR 133 Result Comment: Non- GFR Calc LAB L501.1115 >60 mL/min Normal EST GFR - AA 160 Result Comment: GFR Calc LAB L501.1255 ml/min Normal Estimated CRCL 92.27 LAB L501.1300 10-20 RATIO High BUN/CRE 28.0 LAB L501.2200 8.5-10 mg/dL Low .1 CA 8.2 LAB L501.5300 136-14 mmol/L Normal 5 NA 143 LAB L501.5600 3.5-5. mmol/L Low 1 K 3.4 LAB L501.5900 98-107 mmol/L Normal CL 107 LAB L501.6100 21.0-3 mmol/L Normal 2.0 CO2 30.0 LAB L501.6200 5-15 Normal GAP 6 Performed By: #### L500.2500, L501.4010 #### [facility] [address] [facility] [place], [address] TROPONIN-I Collected: 01/04/2018 Status: F Source: MEARS 4:07 AM [facility] REPOSITORY Order Comment: 'TROP' Serial specimen #1, #2, #3, or #4: 2 TYPE CODE TESTS RESULT OUT OF RANGE REFERENCE UNITS LAB L501.4010 <0.06 ng/mL Normal < 0.02 TROPONIN-I Result Comment: TROPONIN-I EXPECTED VALUES <0.05 NEGATIVE 0.06 - 0.59 AT RISK OF DC > OR = 0.60 SUGGEST DC Performed By: #### L500.2500, L501.4010 #### [facility] [address] [facility] [place], [address] BEDSIDE GLUCOSE Collected: 01/04/2018 Status: F Source: KINJAL 3:53 AM [facility] REPOSITORY TYPE CODE TESTS RESULT OUT OF REFERENCE UNITS RANGE LAB L501.080 70-110 mg/dL High BEDSIDE GLU 121 Result Comment: MANAGEMENT OF PATIENT CARE PER NURSING PROTOCOL Performed By: #### L501.080 #### [facility] Point of Care [address] [facility] [place] [address] TROPONIN-I Collected: 01/04/2018 Status: F Source: KINJAL 12:25 AM [facility] REPOSITORY Order Comment: 'TROP' Serial specimen #1, #2, #3, or #4: 1 TYPE CODE TESTS RESULT OUT OF RANGE REFERENCE UNITS LAB L501.4010 <0.06 ng/mL Normal < 0.02 TROPONIN-I Result Comment: TROPONIN-I EXPECTED VALUES <0.05 NEGATIVE 0.06 - 0.59 AT RISK OF DC > OR = 0.60 SUGGEST DC Performed By: #### L501.4010 #### [facility] [facility] [address] [place], [place], [id number] BEDSIDE GLUCOSE Collected: 01/03/2018 Status: F Source: MEARS 10:20 PM [facility] REPOSITORY TYPE CODE TESTS RESULT OUT OF REFERENCE UNITS RANGE LAB L501.080 70-110 mg/dL High BEDSIDE GLU 158 Result Comment: MANAGEMENT OF PATIENT CARE PER NURSING PROTOCOL Performed By: #### L501.080 #### [facility] Point of Care [address] [facility]. [place], [place] [address] BLOOD GASES BY CPS Collected: 01/03/2018 Status: F Source: MEARS 4:44 PM [facility] REPOSITORY TYPE CODE TESTS RESULT OUT OF RANGE REFERENCE UNITS LAB L9000.9990 Normal BLD GAS TYPE ART LAB L9001.1000 Normal SITE L Radial LAB L9001.1010 Normal SALO TEST POS LAB L9001.1050 O2 Normal Delivery Dev Nasal Can LAB L9001.1055 /min Normal LPM 2.0 LAB L9001.1104 Normal Results To HOSP MD LAB L9001.1105 Normal Time Given 1635 LAB L9001.1110 7.35-7.45 High pH - I-STAT 7.48 LAB L9001.1210 35-45 mmHg High pCO2 - ISTAT 48.3 LAB L9001.1310 75-100 mmHG Low PO2 I-STAT 66 LAB L9001.2300 22-26 mmol/L High HCO3 ISTAT 35.9 LAB L9001.2400 -2 to +2 mmol/L High BE ISTAT 12 LAB L9001.2415 mmol/L Normal TOTAL CO2 37 ISTAT LAB L9001.2425 95-99 % Low SO2 ISTAT 94 Performed By: #### L9000.0800 #### [facility] Point of Care [address] [place], [place] [address] BEDSIDE GLUCOSE Collected: 01/03/2018 Status: F Source: MEARS 4:17 PM [facility] REPOSITORY TYPE CODE TESTS RESULT OUT OF REFERENCE UNITS RANGE LAB L501.080 70-110 mg/dL High BEDSIDE GLU 153 Result Comment: MANAGEMENT OF PATIENT CARE PER NURSING PROTOCOL Performed By: #### L501.080 #### [facility] Point of Care [address] [place] [address] BEDSIDE GLUCOSE Collected: 01/03/2018 Status: F Source: KINJAL 11:03 AM [facility] REPOSITORY TYPE CODE TESTS RESULT OUT OF REFERENCE UNITS RANGE LAB L501.080 70-110 mg/dL High BEDSIDE GLU 208 Result Comment: MANAGEMENT OF PATIENT CARE PER NURSING PROTOCOL Performed By: #### L501.080 #### [facility] Point of Care [address] [place] [address] BEDSIDE GLUCOSE Collected: 01/03/2018 Status: F Source: KINJAL 7:09 AM [facility] REPOSITORY TYPE CODE TESTS RESULT OUT OF RANGE REFERENCE UNITS LAB L501.080 70-110 mg/dL Normal BEDSIDE GLU 101 Result Comment: MANAGEMENT OF PATIENT CARE PER NURSING PROTOCOL Performed By: #### L501.080 #### [facility] Point of Care [address] [place] [address] CBC-COMPLETE BLOOD CNT Collected: 01/03/2018 Status: F Source: KINJAL NO DIFF 6:34 AM [facility] REPOSITORY TYPE CODE TESTS RESULT OUT OF RANGE REFERENCE UNITS LAB L100.1000 4.4-11.0 K/mm3 Normal WBC 7.3 LAB L100.1200 4.2-5.4 M/mm3 Low RBC 3.82 LAB L100.1300 12.0-15.0 g/dl Low HGB 11.8 LAB L100.1400 37-47 % Normal HCT 37.4 LAB L100.1500 81-99 fL Normal MCV 97.9 LAB L100.1600 27.0-32.0 pg Normal MCH 30.9 LAB L100.1700 32-36 g/gl Low MCHC 31.6 LAB L100.1810 11.6-14.6 % High RDW CV 15.1 LAB L100.1820 35.1-43.9 fl High RDW SD 52.4 LAB L100.1900 150-450 K/mm3 Normal PLT 177 LAB L100.2000 6.2-12.0 fl Normal MPV 11.0 Performed By: #### L100.0500 #### [facility] [address] [facility] [place], [address] BASIC METABOLIC Collected: 01/03/2018 Status: F Source: MEARS PROFILE ([facility]) 6:34 AM [facility] REPOSITORY TYPE CODE TESTS RESULT OUT OF RANGE REFERENCE UNITS LAB L501.0100 74-106 mg/dL Normal GLU 103 Result Comment: Fasting Glucose result from 100 to 125 mg/dL suggests IMPAIRED HOMEOSTASIS per A.D.A. criteria. Please note revised GLUCOSE reference range effective 2017. LAB L501.1000 7-18 mg/dL Normal BUN 11 LAB L501.1100 0.55-1.02 mg/dL Low CREAT,SERUM 0.53 Result Comment: The validity of the calculated GFR AND GFRAA in patients over 70 years has not been determined. Clinical correlation is essential. LAB L501.1110 >60 mL/min Normal EST GFR 125 Result Comment: Non- GFR Calc LAB L501.1115 >60 mL/min Normal EST GFR - AA 151 Result Comment: GFR Calc LAB L501.1255 ml/min Normal Estimated CRCL 87.04 LAB L501.1300 10-20 RATIO High BUN/CRE 20.9 LAB L501.2200 8.5-10 mg/dL Low .1 CA 8.3 LAB L501.5300 136-14 mmol/L High 5 NA 146 LAB L501.5600 3.5-5. mmol/L Normal 1 K 3.7 LAB L501.5900 98-107 mmol/L Normal CL 107 LAB L501.6100 21.0-3 mmol/L High 2.0 CO2 34.0 LAB L501.6200 5-15 Normal GAP 5 Performed By: #### L500.2500, L501.5200 #### [facility] [address] [facility] [address] [place], [place], [address] MAGNESIUM Collected: 01/03/2018 Status: F Source: ME[place] 6:34 AM [facility] REPOSITORY TYPE CODE TESTS RESULT OUT OF RANGE REFERENCE UNITS LAB L501.5200 1.6-2.6 mg/dL Normal MG 1.8 Performed By: #### L500.2500, L501.5200 #### [facility] [address] [place], [address] BEDSIDE GLUCOSE Collected: 01/02/2018 Status: F Source: KINJAL 9:49 PM [facility] REPOSITORY TYPE CODE TESTS RESULT OUT OF REFERENCE UNITS RANGE LAB L501.080 70-110 mg/dL High BEDSIDE GLU 180 Result Comment: MANAGEMENT OF PATIENT CARE PER NURSING PROTOCOL Performed By: #### L501.080 #### [facility] Point of Care [address] [facility] [place] [address] URINE DRUG SCREEN Collected: 01/02/2018 Status: F Source: KINJAL (VISTA) 5:15 PM [facility] REPOSITORY TYPE CODE TESTS RESULT OUT OF RANGE REFERENCE UNITS LAB L505.0075 TO BE Normal CONFIRMED Result Comment: CONFIRMATORY TESTING FOR ALL POSITIVE URINE DRUG SCREEN RESULTS WILL ONLY BE SENT OUT UPON PHYSICIAN ORDER. VISTA Urine Drug Screen methods provide only preliminary analytical test results. A more specific alternate chemical method must be used in order to obtain a confirmed analytical result. Gas chromatography/mass spectrometery (GC/MS) is the preferred confirmatory method. Clinical consideration and professional judgement should be applied to any drug of abuse test result, particularly when preliminary positive results are used. URINE TCA TESTING MUST BE ORDERED SEPARATELY. USE TEST MNEMONIC: [facility] LAB L505.5005 VISTA UDS PH 7 Normal LAB L505.5015 <1000 ng/mL AMPHETAMINES Normal NEGATIVE LAB L505.5025 < 200 ng/mL BARBITIURATES Normal NEGATIVE LAB L505.5035 < 200 ng/mL BENZODIAZIPINE Normal NEGATIVE LAB L505.5045 < 300 ng/mL COCAINE Normal NEGATIVE LAB L505.5055 < 500 ng/mL ECSTACY Normal NEGATIVE LAB L505.5065 < 300 ng/mL METHADONE Normal NEGATIVE LAB L505.5075 < 300 ng/mL OPIATES Normal NEGATIVE LAB L505.5085 < 25 ng/mL PCP Normal NEGATIVE LAB L505.5095 < 50 ng/mL THC Normal NEGATIVE Performed By: #### L505.5000 #### [facility] [address] [facility] [place], [address] EMERGENCY DEPARTMENT Observed: 01/02/2018 Status: F Source: ME[place] SUMMARY 4:49 PM [facility] REPOSITORY [facility] Medical Records Department [address] [place] [address] Emergency Department Summary 01/02/18 0948 MR#: [id number] Acct: [id number] Name: TAMIA PANDA Rep #: [id number] : 1955 62 From: Bao Quintana MD PCP: Bhupendra Oliveira MD Status: ADM NICOLE - ER Visit Summary Date of Service: 01/02/18 Chief Complaint: Altered mental status History of Present Illness: The patient is a 62 F with an altered mental status. History is difficult as the patient is very somnolent. She arouses easily to voice, but falls right back asleep. She said that her son called 911. She said he lives with her. Patient denies any pain. Denies recent illness or change in her medications. She has had a history of this in the past and has had metabolic encephalopathy and hypoglycemia. She also has obstructive sleep apnea and is not using her BiPAP. She has A. fib and takes Eliquis. Physical Examination: Vital signs unremarkable. Afebrile. 99% on nasal cannula. Somnolent, but arouses to voice. Oriented to person. No focal or lateralizing neurologic abnormalities grossly, but exam is limited due to her somnolence. Head and neck atraumatic. HEENT exam unremarkable. Heart regular. Lungs clear. Abdomen soft. Skin appears pale. Test Results: BGT in the 140s. EKG, labs, urine, head CT, and chest x-ray pending. Emergency Department Course and Treatment: Patient is not hypoglycemic. Her meds may be contributing, but she does not report overdose or taking new medications. I also considered metabolic and infectious causes. Will check head CT, chest x-ray, labs, urinalysis, and EKG. We will also check ABG. Patient is doing well on oxygen and we will continue to monitor. EKG showed relation a rate of 80. Nonspecific ST and T-wave changes. No acute infarction. CBC normal. Sodium 146 and potassium 2.9. Glucose 124. Urinalysis normal. Troponin normal. ABG showed a normal pH with a CO2 of 64.6. Chest x-ray was similar to previous, shows chronic changes. CT head showed chronic changes. Potassium replaced. Patient remained stable, somnolent. Started on BiPAP. Call the hospitalist to admit to the PCU. Treatment Plan: As above Disposition: Admission Impression: 1. Altered mental status, encephalopathy 2. Hypokalemia This note was generated with Cureeo dictation software. It may contain incorrect words, spelling, and punctuation that were not noted in review of the chart prior to signing ED Disposition - Plan for ED Patient: Chief Complaint: Neuro S/Sx Referrals: Bhupendra Oliveira MD [Primary Care Provider] - What to do if you have Problems For any increased pain, shortness of breath, bleeding, nausea or vomiting, chest pain, or any unexpected problems, contact your Primary Care Provider. Call [facility] ([phone]) or report to the closest Emergency Room. Call 911 if necessary. 01/02/18 0209 <Electronically signed by Bao Quintana MD> Date Bao Quintana MD Cosigner Signature (If Indicated): Date CC: Bhupendra Oliveira MD BEDSIDE GLUCOSE Collected: 01/02/2018 Status: F Source: KINJAL 3:26 PM [facility] REPOSITORY TYPE CODE TESTS RESULT OUT OF RANGE REFERENCE UNITS LAB L501.080 70-110 mg/dL Normal BEDSIDE GLU 88 Result Comment: MANAGEMENT OF PATIENT CARE PER NURSING PROTOCOL Performed By: #### L501.080 #### [facility] Point of Care [address] [place] [address] URINALYSIS, COMPLETE Collected: 01/02/2018 Status: F Source: KINJAL 11:20 AM [facility] REPOSITORY Order Comment: How was Urine Obtained? CATHETER SPECIMEN TYPE CODE TESTS RESULT OUT OF RANGE REFERENCE UNITS LAB L400.3000 Yellow COLOR Normal Yellow LAB L400.3050 Clear Normal CLARITY Sl. Cloudy LAB L400.3200 Normal mg/dl Normal GLUCOSE, UR Normal LAB L400.3300 Negative mg/dL Normal BILIRUBIN URINE Negative LAB L400.3400 Negative mg/dl Normal KETONE UR Negative LAB L400.3465 1.002-1.030 Normal SP.GR. DIPSTX 1.010 LAB L400.3550 5.0 - 8.0 pH UR Normal 6.5 LAB L400.3600 Negative mg/dl PROT Normal DIPSTX Negative LAB L400.3700 Normal mg/dl Normal UROBILI Normal LAB L400.3750 Negative Normal NITRITE UR Negative LAB L400.3780 Negative /ul Normal OCCULT BLOOD-UR Negative LAB L400.3800 Negative /ul LEUK Normal ESTERASE Negative LAB L400.4050 0-5 /hpf WBC 0 Normal SEEN LAB L400.4100 0-5 /hpf 0 Normal RBC-UA SEEN LAB L400.4150 5-10 /hpf SQUAM Normal EPI 0-5 SEEN LAB L400.4300 None Seen /hpf 0 Normal BACTERIA SEEN LAB L400.4350 <or=2+ /hpf 0 Normal MUCUS, URINE SEEN Performed By: #### L400.0001 #### [facility] [address] [place], [address] BLOOD GASES BY [facility] Collected: 01/02/2018 Status: F Source: ME[place] 10:37 AM [facility] REPOSITORY TYPE CODE TESTS RESULT OUT OF RANGE REFERENCE UNITS LAB L9000.9990 Normal BLD GAS TYPE ART LAB L9001.1000 Normal SITE R Radial LAB L9001.1050 O2 Normal Delivery Dev Nasal Can LAB L9001.1055 /min Normal LPM 4.0 LAB L9001.1104 Normal Results To ED LAB L9001.1105 Normal Time Given 1035 LAB L9001.1110 7.35-7.45 pH Normal - I-STAT 7.39 LAB L9001.1210 35-45 mmHg High pCO2 - ISTAT 64.6 LAB L9001.1310 75-100 mmHG High PO2 I-STAT 115 LAB L9001.2300 22-26 mmol/L High HCO3 ISTAT 39.2 LAB L9001.2400 -2 to +2 mmol/L High BE ISTAT 14 LAB L9001.2415 mmol/L Normal TOTAL CO2 41 ISTAT LAB L9001.2425 95-99 % Normal SO2 ISTAT 98 Performed By: #### L9000.0800 #### [facility] Point of Care [address] [place] [address] CHEST 1 VIEW Observed: 01/02/2018 Status: F Source: [place] (PORTABLE) 9:46 AM [facility] REPOSITORY [facility] Imaging Services [address] [place] [address] Chest 1 View (Portable) MR#: [id number] Acct: [id number] Name: TAMIA PANDA Rep #: [id number] : 1955 F 62 From: Jelly Terrazas MD PCP: Bhupendra Oliveira MD Status: REG ER Study: Chest 1 View (Portable) Date of Exam: 01/02/18 Exam# [id number] Ordering Dr: Bao Quintana MD STUDY: X-RAY CHEST REASON FOR EXAM: Female, 62 years old. Altered mental status. TECHNIQUE: Single AP portable view of the chest. COMPARISON: October 16, 2017. FINDINGS: Cardiac monitoring leads are present. Lungs are underexpanded. There are prominent bronchovascular markings. There is no demonstrated pleural abnormality. There is moderate cardiac enlargement. There are calcified mediastinal and hilar lymph nodes. There is prominence of the pulmonary hilar arteries without peripheral pulmonary vascular congestion. There is atherosclerotic calcification of the aortic arch with tortuosity. There is demineralization of the osseous structures. Normal visualized ribs, clavicles, and shoulders. There is no demonstrated abnormality of the visualized soft tissue structures of the upper abdomen. RAD/Chest 1 View (Portable) IMPRESSION: Cardiomegaly and mild pulmonary congestion similar to previous study. Electronically Signed: Jelly Terrazas MD at 10:14 EDT , Service support , CC: Bhupendra Oliveira MD; Bao Quintana MD Pipe Recovery Specialist: Signed BRAIN/HEAD WITHOUT Observed: 01/02/2018 Status: F Source: KINJAL CONTRAST 9:46 AM [facility] REPOSITORY [facility] Imaging Services [address] [place] [address] Brain/Head without Contrast MR#: [id number] Acct: [id number] Name: TAMIA PANDA Rep #: [id number] : 1955 F 62 From: Jelly Terrazas MD PCP: Bhupendra Oliveira MD Status: REG ER Study: Brain/Head without Contrast Date of Exam: 01/02/18 Exam# [id number] Ordering Dr: Bao Quintana MD STUDY: CT BRAIN WITHOUT CONTRAST REASON FOR EXAM: Female, 62 years old. Altered mental status. RADIATION DOSAGE (If Supplied By Facility): CTDIvol = ( 44.99 ) mGy, DLP = ( 745.49 ) mGycm TECHNIQUE: Transaxial CT imaging of the brain was performed without administration of intravenous contrast material. Multiplanar reformations are submitted for interpretation. Individualized dose optimization techniques were used for this CT. COMPARISON: CT of the head dated October 16, 2017. FINDINGS: Normal soft tissue structures. Normal calvarium. There is mild cerebral atrophy with widening of the extra- axial spaces and ventricular dilatation. There are areas of decreased attenuation within the white matter tracts of the supratentorial brain, consistent with microvascular disease changes. Normal basal ganglia and thalami. Normal brainstem. There is mild cerebellar atrophy. There is no intracranial hemorrhage. There is moderate atherosclerotic calcification of intracranial arteries. The right frontal sinuses not hypoplastic with thickened wu suggesting sequela of chronic inflammatory process. Appears to be some residual disease in the maxillary sinus possibly representing a mucous retention cyst and/or mucoperiosteal thickening. Patient has had surgical resection of the right ostiomeatal complex and right middle turbinate. Patient appears to have had partial right-sided ethmoidectomies. CT/Brain/Head without Contrast IMPRESSION: 1. Chronic involutional changes of the brain. 2. No CT evidence of acute intracranial hemorrhage. 3. Sequela of extensive paranasal sinus surgery. Electronically Signed: Jelly Terrazas MD at 11:12 EDT , Service support , CC: Bhupendra Oliveira MD; Bao Quintana MD Pipe Recovery Specialist: Signed CBC W/DIFF, AUTOMATED Collected: 01/02/2018 Status: F Source: KINJAL 9:43 AM [facility] REPOSITORY TYPE CODE TESTS RESULT OUT OF RANGE REFERENCE UNITS LAB L100.1000 4.4-11.0 K/mm3 Normal WBC 5.7 LAB L100.1200 4.2-5.4 M/mm3 Low RBC 4.08 LAB L100.1300 12.0-15.0 g/dl Normal HGB 12.2 LAB L100.1400 37-47 % Normal HCT 40.2 LAB L100.1500 81-99 fL Normal MCV 98.5 LAB L100.1600 27.0-32.0 pg Normal MCH 29.9 LAB L100.1700 32-36 g/gl Low MCHC 30.3 LAB L100.1810 11.6-14.6 % High RDW CV 15.2 LAB L100.1820 35.1-43.9 fl High RDW SD 54.9 LAB L100.1900 150-450 K/mm3 Normal PLT 189 LAB L100.2000 6.2-12.0 fl Normal MPV 10.6 LAB L100.2100 47-70 % Normal NEUT% 67.7 LAB L100.2200 19-41 % Low LY% 17.3 LAB L100.2300 0-10 % Normal MONO% 9.6 LAB L100.2400 0-5 % Normal EO% 4.9 LAB L100.2500 0-1 % Normal BASO% 0.3 LAB L100.2550 0.0-0.9 % Normal IM GRAN % 0.200 Result Comment: IG% - Immature Granulocytes (promyelocytes, myelocytes and metamyelocytes) > 1% indicates that a LEFT SHIFT is Present. LAB L100.2620 2.0-7.7 X10 3/uL Normal Absolute Neut 3.9 LAB L100.2720 0.83-4.51 X10 3/ul Normal Absolute Lymph 0.99 Performed By: #### L100.0100 #### [facility] [address] [facility] [place], [address] BASIC METABOLIC Collected: 01/02/2018 Status: F Source: KINJAL PROFILE (BMP) 9:43 AM [facility] REPOSITORY Order Comment: 'TROP' Serial specimen #1, #2, #3, or #4: 1 TYPE CODE TESTS RESULT OUT OF RANGE REFERENCE UNITS LAB L501.0100 74-106 mg/dL High GLU 124 Result Comment: Fasting Glucose result from 100 to 125 mg/dL suggests IMPAIRED HOMEOSTASIS per A.D.A. criteria. Please note revised GLUCOSE reference range effective 2017. LAB L501.1000 7-18 mg/dL Normal BUN 15 LAB L501.1100 0.55-1.02 mg/dL Normal CREAT,SERUM 0.71 Result Comment: The validity of the calculated GFR AND GFRAA in patients over 70 years has not been determined. Clinical correlation is essential. LAB L501.1110 >60 mL/min Normal EST GFR 89 Result Comment: Non- GFR Calc LAB L501.1115 >60 mL/min Normal EST GFR - AA 108 Result Comment: GFR Calc LAB L501.1255 ml/min Normal Estimated CRCL 64.98 LAB L501.1300 10-20 RATIO High BUN/CRE 21.2 LAB L501.2200 8.5-10 mg/dL Low .1 CA 8.4 LAB L501.5300 136-14 mmol/L High 5 NA 146 LAB L501.5600 3.5-5. mmol/L Low 1 K 2.9 LAB L501.5900 98-107 mmol/L Normal CL 104 LAB L501.6100 21.0-3 mmol/L High 2.0 CO2 38.0 LAB L501.6200 5-15 Low GAP 4 Performed By: #### L500.2500, L501.4010 #### [facility] [address] [place], [address] TROPONIN-I Collected: 01/02/2018 Status: F Source: ME[place] 9:43 AM [facility] REPOSITORY Order Comment: 'TROP' Serial specimen #1, #2, #3, or #4: 1 TYPE CODE TESTS RESULT OUT OF RANGE REFERENCE UNITS LAB L501.4010 <0.06 ng/mL Normal < 0.02 TROPONIN-I Result Comment: TROPONIN-I EXPECTED VALUES <0.05 NEGATIVE 0.06 - 0.59 AT RISK OF DC > OR = 0.60 SUGGEST DC Performed By: #### L500.2500, L501.4010 #### [facility] [address] [place], [address] BEDSIDE GLUCOSE Collected: 01/02/2018 Status: F Source: [place] 9:39 AM [facility] REPOSITORY TYPE CODE TESTS RESULT OUT OF REFERENCE UNITS RANGE LAB L501.080 70-110 mg/dL High BEDSIDE GLU 148 Result Comment: MANAGEMENT OF PATIENT CARE PER NURSING PROTOCOL Performed By: #### L501.080 #### [facility] Point of Care [address] [place] [address] PROGRESS Observed: 01/01/2018 Status: COMPLETED Source: RUSSELL 1:25 PM [facility] [place] REPOSITORY O ID: [id number] Author: Katie Rueda) [employer] Service: (none) Author Type: Nurse Practitioner Type: Progress Notes Filed: 01/01/2018 3:57 PM Note Text: 01/01/2018 Patient presents with: Recheck: 6 week f/up SUBJECTIVE: This is a 62 year old that is here today for Above Complaints. Since last appointment on 12/11 has had heart cath. 1. Taking medication as directed consistently? Yes Medical Issues / Complications: hypertension, hyperlipidemia, peripheral neuropathy, gastroparesis and cardiovascular disease Checking blood sugars at home? Yes. Takes BS 3-4 times a day. This AM was 140. Had a low the other day in the 70's- was able to tell because she got shaky was able to eat and it came up but unsure of number Watching diet? Yes Physical Activity: Sedentary Hypoglycemic spells? Yes Any visual disturbance? No Chest pain? No New numbness, tingling or loss of sensation? No Any recent foot problems, sores or rashes? No Any recent or sudden weight loss? No Any recent illness? No ASA daily? Yes Statin therapy? Yes Triglyceride therapy? No Last eye exam: 07/03/2018. Last foot exam: 06/03/2017 HBA1C: Hemoglobin A1C (%) Date Value 12/11/2017 6.3 07/29/2017 6.1 ) CMP: Glucose 110 12/15/2017 BUN 16 12/15/2017 Creatinine 1.11 12/15/2017 Sodium 145 12/15/2017 Potassium 4.6 12/15/2017 Chloride 99 12/15/2017 CO2 33 12/15/2017 Protein, Total 7.0 12/15/2017 Albumin 4.1 12/15/2017 Calcium 9.3 12/15/2017 Alkaline Phosphatase 38 12/15/2017 Bilirubin, Total 0.5 12/15/2017 AST 14 12/15/2017 ALT 11 12/15/2017 Last 2 Encounter Wt Readings: Date: Wt: 01/01/2018 100.3 kg (221 lb 1.9 oz) 12/18/2017 98.5 kg (217 lb 1.6 oz) 2. CAD: Saw Dr. Albright on 12/18 for cardiac clearance. Reccommended she have a lexiscan stress test prior to endo procedure. Stress test completed on 12/[address] Strickland reviewed and ordered diagnostic angiography be done before cardia clearance. Per DR. Albright phone note on 12/23 cath shows stable coronary disease. There is no need for intervention. She may reschedule her surgery. Risk of perioperative cardia complications is intermediate. No further testing is required. Today denies chest pain, palpitations, leg swelling, or recent use of nitro. 3. Gastroparesis: Endoscopy that was supposed to be done on 12/19 cancelled d/t no cardiac clearance. She notified gastro she was cleared by cardiology and is awaiting for them to reschedule. 4.HYPERLIPIDEMIA: Patient is taking medications: Yes. Patient is watching diet: Tries to Patient denies myalgias: Yes. Patient denies gi upset: Yes Component Latest Ref Rng AND Units 07/20/2016 12/11/2017 Triglyceride <150 mg/dL 172 (H) 238 (H) Cholesterol, Total <200 mg/dL 189 160 HDL Cholesterol >39 mg/dL 67 36 (L) VLDL Cholesterol <30 mg/dL 34 48 (H) LDL Cholesterol <100 mg/dL 88 76 Fasting Time hrs 12 0 TC:HDL Ratio <5.10 2.82 4.44 LDL:HDL Ratio <2.54 1.31 2.11 Non HDL Cholesterol <130 mg/dL 122 124 5. HTN: Patient is compliant with meds Yes Monitors bp at home: No. Denies side effects: Yes. Chest pain: Yes. Dyspnea: No. Edema: Yes. Palpitations: Yes. Syncope: Yes. Headache: Yes. Dizziness: Yes. 6. COPD: Has portable oxygen in place today at 3L/NC and is sating at 94%. Denies increased SOB, wheezing, dyspnea, coughing, or hemoptysis. PAST MEDICAL HISTORY Diagnosis Date - Acute chronic obstructive pulmonary disease with respiratory failure ([facility]) - AF (paroxysmal atrial fibrillation) ([facility]) - Anxiety - Arthritis Seeing Dr Elliott - Cervical cancer ([facility]) hysterectomy - CHF (congestive heart failure) ([facility]) - Chronic back pain Seeing Dr. Wallace - Constipation - COPD (chronic obstructive pulmonary disease) ([facility]) - Coronary atherosclerosis of [place] coronary artery Previously seeing Dr. Sosa - DDD (degenerative disc disease), lumbar - DM type 2 (diabetes mellitus, type 2) ([facility]) Seeing Dr. Foley for podiatry - DVT (deep venous thrombosis) ([facility]) Post op INA, BSO. - Dysphagia Seeing Dr. Beaulieu - Emphysema lung ([facility]) - Essential hypertension - Functional dyspepsia - Gastroparesis 2017 mild - GERD without esophagitis - Headache - History of colon polyps 11/28/2016 - Hyperlipidemia - Hypothyroidism - Incontinence Seeing Dr. Chapman - Morbid obesity ([facility]) - Muscle weakness - Nausea - PARESH on CPAP [facility], no longer using as of 10/2017, was not compliant - PE (pulmonary thromboembolism) ([facility]) Post op INA/BSO. - Pneumonia - RLS (restless legs syndrome) - Shortness of breath - Sleep apnea using oxygen currently, not on CPAP - Unsteadiness on feet - Wheezing ALLERGIES Adhesive Tape (Rosins); Cats; Dogs; Orphenadrine; Ciprofloxacin; Keflex [Cephalexin]; Niacin; Niacin Preparations; Penicillin G; Penicillins; Reglan [Metoclopramide Hcl]; Xanthines MEDICATIONS Current Outpatient Prescriptions: sucralfate (CARAFATE) 100 mg/mL suspension Take 10 mL by mouth four times daily. COMPOUNDED PRESCRIPTION OCD Titration for portable oxygen concentrator Oxygen Flow Rate between 2-6 liters. To keep oxygen saturation at or above 92%. mupirocin (BACTROBAN) 2 % ointment Apply 1 application to affected area three times daily. promethazine (PHENERGAN) 25 mg tablet Take 1 tablet by mouth every 6 hours as needed. insulin lispro (HUMALOG KWIKPEN INSULIN) 200 unit/mL (3 mL) injection Inject subcutaneously 14 units with breakfast, 22 units with lunch, and 24 units with dinner (Patient taking differently: 14 Units. Inject subcutaneously 14 units with breakfast, 22 units with lunch, and 24 units with dinner ) LYRICA 100 mg capsule TAKE 1 CAPSULE BY MOUTH THREE TIMES A DAY capsaicin (ZOSTRIX-HP) 0.075 % topical cream Apply 1 application to affected area four times daily. ULTICARE PEN NEEDLE 31 gauge x 5/16 ndle USE DIRECTED. TO INJECT INSULINS VITAMIN C 500 mg tablet TAKE 1 TABLET BY MOUTH DAILY Ferrous Gluconate (FERGON) 324 mg (38 mg iron) tablet TAKE 1 TABLET BY MOUTH DAILY WITH BREAKFAST insulin glargine (LANTUS SOLOSTAR) 100 unit/mL (3 mL) inpn Inject 60 units subcutaneously twice daily STOOL SOFTENER 100 mg capsule TAKE 1 CAPSULE BY MOUTH DAILY CLAUDIA-KYLE 8.6 mg tab TAKE 1 TABLET BY MOUTH TWICE A DAY isosorbide mononitrate ER (IMDUR) 60 mg 24 hr tablet Take 1.5 tablets by mouth once daily. In the morning atorvastatin (LIPITOR) 40 mg tablet TAKE 1 TABLET BY MOUTH DAILY diltiazem CD (CARDIZEM CD, CARTIA XT) 180 mg 24 hr capsule TAKE 1 CAPSULE BY MOUTH EVERY MORNING levothyroxine (SYNTHROID) 100 mcg tablet TAKE 1 TABLET BY MOUTH EVERY MORNING omeprazole (PRILOSEC) 20 mg capsule TAKE 1 CAPSULE BY MOUTH EVERY MORNING ELIQUIS 2.5 mg tab tab(s) TAKE 1 TABLET BY MOUTH TWICE A DAY nitroglycerin sublingual (NITROQUICK) 0.4 mg SL tablet DISSOLVE 1 TAB UNDER THE TONGUE NEEDED FOR CHEST PAIN EVERY 5 MINUTES UP TO 3 TIMES. IF NO RELIEF CALL 911. metoprolol tartrate, short acting, (LOPRESSOR) 50 mg tablet Take 1 tablet by mouth twice daily. glucose 4 gram chewable tablet Take 4 tablets by mouth as needed for Low Blood Sugar. OXYGEN, HOME THERAPY, Inhale 3 L/min as instructed as directed. fluticasone (FLONASE) 50 mcg/actuation nasal spray Use 2 Sprays in each nostril once daily. metFORMIN ER (GLUCOPHAGE XR) 500 mg 24 hr tablet Take 2 tablets by mouth twice daily. DULoxetine (CYMBALTA) 60 mg capsule Take 1 capsule by mouth once daily. aspirin, enteric coated (ASPIRIN, ENTERIC COATED) 81 mg EC tablet Take 1 tablet by mouth every morning. furosemide (LASIX) 40 mg tablet Take 1 tablet by mouth twice daily. albuterol HFA (VENTOLIN HFA) 90 mcg/actuation inhaler Inhale 2 Puffs as instructed every 4 hours as needed for Wheezing/Shortness of Breath. COMPOUNDED PRESCRIPTION Evaluation for diabetic shoes and inserts Dx: E11.65, Z79.4 blood sugar diagnostic (ONETOUCH ULTRA TEST) test strip Use as directed to check blood sugar 4-5 times daily DX: E11.65 Insulin: yes DM: yes lancets (ONE TOUCH DELICA) 33 gauge misc Use as directed to check blood sugar 4-5 times daily DX: E11.65 Insulin: yes DM: yes Incontinence Pad, Liner, Disp pads 1 Device as needed (urinary incontinence). Prevail incontinence pads. Dx: urinary incontinence. Size: small Blood Pressure Cuff - Home Use BLOOD PRESSURE CUFF FOR HOME USE. DX: LABILE BLOOD PRESSURE Blood-Glucose Meter (ONETOUCH ULTRA2) monitoring kit UAD to test blood sugar Alcohol Swabs padm UAD to clean skin before testing blood sugar and injecting insulins. No current facility-administered medications for this visit. Medications and allergies reviewed by this provider. 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 Social History Main Topics Smoking status: Former Smoker Packs/day: 1.00 Years: 28.00 Types: Cigarettes Start date: 1978 Quit date: 09/22/2005 Smokeless status: Never Used Comment: Father smoked in childhood. 2nd spouse smoked in home. Alcohol use: No Drug use: No Sexual activity: No Social History Narrative 1 year in current home. No basement, 1 parakeet. Room A/C. Electric baseboard heat. REVIEW OF SYSTEMS GENERAL: No weight loss, malaise or fevers NECK: Negative for lumps, goiter, pain and significant neck swelling RESPIRATORY: See HPI CARDIOVASCULAR: See HPI GI: No nausea, vomiting, or diarrhea SKIN: Negative for lesions, rash, and itching All other reviewed and negative other than HPI. OBJECTIVE: BP 120/68 (BP Site: Right Arm, BP Position: Sitting, BP Cuff Size: Large Adult) Pulse (!) 56 Resp 18 Wt 100.3 kg (221 lb 1.9 oz) SpO2 94% BMI 40.44 kg/m2. Vital signs reviewed by this provider. APPEARANCE Well appearing, alert, in no acute distress, well-hydrated, well nourished. HEART RRR with normal S1 and S2, no murmurs, no gallops, no JVD appreciated LUNG diminished breath sounds bilaterally. NO wheeze, rhonchi, or rales. Speaking in full sentences. ABDOMEN bowel sounds normoactive, no bruits, soft, non-tender, non-distended, no tenderness to palpation EXTREMITIES Extremities normal, No deformities, No skin discoloration and No edema. Cap refill WNL SKIN Skin color, texture, turgor normal, no suspicious rashes or lesions ASSESSMENT/PLAN: 1. Type 2 diabetes mellitus with diabetic neuropathy, with long-term current use of insulin (HCC) - ICD9: 250.60, 357.2, V58.67, ICD10: E11.40, Z79.4 (primary diagnosis) Controlled. - Continue current medications - Blood glucose monitoring on a four times a day schedule - Encouraged regular aerobic exercise and weight loss - BP goal of <130/80 - LDL goal of <100 - follow-up in January with Dr. Oliveira 2. Hyperlipidemia, unspecified hyperlipidemia type - ICD9: 272.4, ICD10: E78.5 - suboptimal control - Continue current medication. - Encouraged following a low fat, low cholesterol diet. - discussed increased triglycerides and how to reduce - Discussed the benefits of regular aerobic exercise and weight loss. - Encouraged following a low carbohydrate, healthy oil intake diet. - follow-up with Dr. Oliveira in January 3. Morbid obesity (HCC) - ICD9: 278.01, ICD10: E66.01 - Lengthy discussion in office today regarding diet and exercise. Discussed use of small plate to eat meals from, drink 1 glass of water 10-15 minutes prior to eating meal, drink 8 glasses of water daily, eat fresh fruit and vegetable during meal first then lean protein such as grilled/baked chicken breast or fish, limit carbohydrate intake (less pasta, breads, rice and snack foods) as well as limiting sugars (desserts etc). Important to count / track your calories and exercise as well. 4. Essential hypertension - ICD9: 401.9, ICD10: I10 - good control - Continue current medication(s) - Encouraged dietary sodium restriction/DASH diet - Recommended regular aerobic exercise. - Recommend home blood pressure monitoring, to bring results in on next visit - Discussed need and benefit for weight loss. - Goal of BP <140/90 - Recommended no refined sugar, low refined starch, healthy oil intake (olive oil), healthy protein (fish) along the lines of the Mediterranean diet. - follow-up in with Dr. Oliveira in January 24. 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 Albright 6. AF (paroxysmal atrial fibrillation) (HCC) - ICD9: 427.31, ICD10: I48.0 - rate controlled. On Xeralto. Continue current regime 7. Chronic obstructive pulmonary disease, unspecified COPD type (HCC) - ICD9: 496, ICD10: J44.9 - continue with current aerosol regime and oxygen 3L/NC as ordered 8. Chronic congestive heart failure, unspecified heart failure type (HCC) - ICD9: 428.0, ICD10: I50.9 - no signs of fluid overload. - continue to monitor salt intake - follow with cardiology 9. Gastroparesis - ICD9: 536.3, ICD10: K31.84 - follow with gastro for endoscopy Katie Mckeon, [employer].DATA INPUT CLERK Prescription instructions reviewed with patient as applicable. Patient advised if symptoms do not improve or if symptoms worsen sooner, to contact their primary care physician. Potential red flag symptoms discussed with the patient. Reviewed appropriate action plan to take if red flag symptoms occur. Patient agreeable to treatment plan. IESHA Observed: 01/01/2018 Status: COMPLETED Source: [place] 1:00 PM [facility] REPOSITORY Office Visit (FAMPWS) TAMIA PANDA ([id number]) 1955 F Date Time Provider Department 01/01/18 1:00 PM KATIE MCKEON ([facility]) [facility] During your visit today, we recorded the following information about you: Pulse Respiration Blood pressure Weight 56/minute 18/minute 120/68 100.3 kg Katie Mckeon APRN.CNP 01/01/2018 3:57 PM Signed 01/01/2018 Patient presents with: Recheck: 6 week f/up SUBJECTIVE: This is a 62 year old that is here today for Above Complaints. Since last appointment on 12/11 has had heart cath. 1. Taking medication as directed consistently? Yes Medical Issues / Complications: hypertension, hyperlipidemia, peripheral neuropathy, gastroparesis and cardiovascular disease Checking blood sugars at home? Yes. Takes BS 3-4 times a day. This AM was 140. Had a low the other day in the 70's- was able to tell because she got shaky was able to eat and it came up but unsure of number Watching diet? Yes Physical Activity: Sedentary Hypoglycemic spells? Yes Any visual disturbance? No Chest pain? No New numbness, tingling or loss of sensation? No Any recent foot problems, sores or rashes? No Any recent or sudden weight loss? No Any recent illness? No ASA daily? Yes Statin therapy? Yes Triglyceride therapy? No Last eye exam: 07/03/2018. Last foot exam: 06/03/2017 HBA1C: Hemoglobin A1C (%) Date Value 12/11/2017 6.3 07/29/2017 6.1 ) CMP: Glucose 110 12/15/2017 BUN 16 12/15/2017 Creatinine 1.11 12/15/2017 Sodium 145 12/15/2017 Potassium 4.6 12/15/2017 Chloride 99 12/15/2017 CO2 33 12/15/2017 Protein, Total 7.0 12/15/2017 Albumin 4.1 12/15/2017 Calcium 9.3 12/15/2017 Alkaline Phosphatase 38 12/15/2017 Bilirubin, Total 0.5 12/15/2017 AST 14 12/15/2017 ALT 11 12/15/2017 Last 2 Encounter Wt Readings: Date: Wt: 01/01/2018 100.3 kg (221 lb 1.9 oz) 12/18/2017 98.5 kg (217 lb 1.6 oz) 2. CAD: Saw Dr. Albright on 12/18 for cardiac clearance. Reccommended she have a lexiscan stress test prior to endo procedure. Stress test completed on 12/[address] Strickland reviewed and ordered diagnostic angiography be done before cardia clearance. Per DR. Albright phone note on 12/23 cath shows stable coronary disease. There is no need for intervention. She may reschedule her surgery. Risk of perioperative cardia complications is intermediate. No further testing is required. Today denies chest pain, palpitations, leg swelling, or recent use of nitro. 3. Gastroparesis: Endoscopy that was supposed to be done on 12/19 cancelled d/t no cardiac clearance. She notified gastro she was cleared by cardiology and is awaiting for them to reschedule. 4.HYPERLIPIDEMIA: Patient is taking medications: Yes. Patient is watching diet: ANDquot; Tries to ANDquot; Patient denies myalgias: Yes. Patient denies gi upset: Yes Component Latest Ref Rng ANDamp; Units 07/20/2016 12/11/2017 Triglyceride ANDlt;150 mg/dL 172 (H) 238 (H) Cholesterol, Total ANDlt;200 mg/dL 189 160 HDL Cholesterol ANDgt;39 mg/dL 67 36 (L) VLDL Cholesterol ANDlt;30 mg/dL 34 48 (H) LDL Cholesterol ANDlt;100 mg/dL 88 76 Fasting Time hrs 12 0 TC:HDL Ratio ANDlt;5.10 2.82 4.44 LDL:HDL Ratio ANDlt;2.54 1.31 2.11 Non HDL Cholesterol ANDlt;130 mg/dL 122 124 5. HTN: Patient is compliant with meds Yes Monitors bp at home: No. Denies side effects: Yes. Chest pain: Yes. Dyspnea: No. Edema: Yes. Palpitations: Yes. Syncope: Yes. Headache: Yes. Dizziness: Yes. 6. COPD: Has portable oxygen in place today at 3L/NC and is sating at 94%. Denies increased SOB, wheezing, dyspnea, coughing, or hemoptysis. PAST MEDICAL HISTORY Diagnosis Date - Acute chronic obstructive pulmonary disease with respiratory failure ([facility]) - AF (paroxysmal atrial fibrillation) ([facility]) - Anxiety - Arthritis Seeing Dr Elliott - Cervical cancer ([facility]) hysterectomy - CHF (congestive heart failure) ([facility]) - Chronic back pain Seeing Dr. Wallace - Constipation - COPD (chronic obstructive pulmonary disease) ([facility]) - Coronary atherosclerosis of port lions coronary artery Previously seeing Dr. Sosa - DDD (degenerative disc disease), lumbar - DM type 2 (diabetes mellitus, type 2) ([facility]) Seeing Dr. Foley for podiatry - DVT (deep venous thrombosis) ([facility]) Post op INA, BSO. - Dysphagia Seeing Dr. Beaulieu - Emphysema lung ([facility]) - Essential hypertension - Functional dyspepsia - Gastroparesis 2017 mild - GERD without esophagitis - Headache - History of colon polyps 11/28/2016 - Hyperlipidemia - Hypothyroidism - Incontinence Seeing Dr. Chapman - Morbid obesity ([facility]) - Muscle weakness - Nausea - PARESH on CPAP [facility], no longer using as of 10/2017, was not compliant - PE (pulmonary thromboembolism) ([facility]) Post op INA/BSO. - Pneumonia - RLS (restless legs syndrome) - Shortness of breath - Sleep apnea using oxygen currently, not on CPAP - Unsteadiness on feet - Wheezing ALLERGIES Adhesive Tape (Rosins); Cats; Dogs; Orphenadrine; Ciprofloxacin; Keflex [Cephalexin]; Niacin; Niacin Preparations; Penicillin G; Penicillins; Reglan [Metoclopramide Hcl]; Xanthines MEDICATIONS Current Outpatient Prescriptions: sucralfate (CARAFATE) 100 mg/mL suspension Take 10 mL by mouth four times daily. COMPOUNDED PRESCRIPTION OCD Titration for portable oxygen concentrator Oxygen Flow Rate between 2-6 liters. To keep oxygen saturation at or above 92%. mupirocin (BACTROBAN) 2 % ointment Apply 1 application to affected area three times daily. promethazine (PHENERGAN) 25 mg tablet Take 1 tablet by mouth every 6 hours as needed. insulin lispro (HUMALOG KWIKPEN INSULIN) 200 unit/mL (3 mL) injection Inject subcutaneously 14 units with breakfast, 22 units with lunch, and 24 units with dinner (Patient taking differently: 14 Units. Inject subcutaneously 14 units with breakfast, 22 units with lunch, and 24 units with dinner ) LYRICA 100 mg capsule TAKE 1 CAPSULE BY MOUTH THREE TIMES A DAY capsaicin (ZOSTRIX-HP) 0.075 % topical cream Apply 1 application to affected area four times daily. ULTICARE PEN NEEDLE 31 gauge x 5/16ANDquot; ndle USE DIRECTED. TO INJECT INSULINS VITAMIN C 500 mg tablet TAKE 1 TABLET BY MOUTH DAILY Ferrous Gluconate (FERGON) 324 mg (38 mg iron) tablet TAKE 1 TABLET BY MOUTH DAILY WITH BREAKFAST insulin glargine (LANTUS SOLOSTAR) 100 unit/mL (3 mL) inpn Inject 60 units subcutaneously twice daily STOOL SOFTENER 100 mg capsule TAKE 1 CAPSULE BY MOUTH DAILY CLAUDIA-KYLE 8.6 mg tab TAKE 1 TABLET BY MOUTH TWICE A DAY isosorbide mononitrate ER (IMDUR) 60 mg 24 hr tablet Take 1.5 tablets by mouth once daily. In the morning atorvastatin (LIPITOR) 40 mg tablet TAKE 1 TABLET BY MOUTH DAILY diltiazem CD (CARDIZEM CD, CARTIA XT) 180 mg 24 hr capsule TAKE 1 CAPSULE BY MOUTH EVERY MORNING levothyroxine (SYNTHROID) 100 mcg tablet TAKE 1 TABLET BY MOUTH EVERY MORNING omeprazole (PRILOSEC) 20 mg capsule TAKE 1 CAPSULE BY MOUTH EVERY MORNING ELIQUIS 2.5 mg tab tab(s) TAKE 1 TABLET BY MOUTH TWICE A DAY nitroglycerin sublingual (NITROQUICK) 0.4 mg SL tablet DISSOLVE 1 TAB UNDER THE TONGUE NEEDED FOR CHEST PAIN EVERY 5 MINUTES UP TO 3 TIMES. IF NO RELIEF CALL 911. metoprolol tartrate, short acting, (LOPRESSOR) 50 mg tablet Take 1 tablet by mouth twice daily. glucose 4 gram chewable tablet Take 4 tablets by mouth as needed for Low Blood Sugar. OXYGEN, HOME THERAPY, Inhale 3 L/min as instructed as directed. fluticasone (FLONASE) 50 mcg/actuation nasal spray Use 2 Sprays in each nostril once daily. metFORMIN ER (GLUCOPHAGE XR) 500 mg 24 hr tablet Take 2 tablets by mouth twice daily. DULoxetine (CYMBALTA) 60 mg capsule Take 1 capsule by mouth once daily. aspirin, enteric coated (ASPIRIN, ENTERIC COATED) 81 mg EC tablet Take 1 tablet by mouth every morning. furosemide (LASIX) 40 mg tablet Take 1 tablet by mouth twice daily. albuterol HFA (VENTOLIN HFA) 90 mcg/actuation inhaler Inhale 2 Puffs as instructed every 4 hours as needed for Wheezing/Shortness of Breath. COMPOUNDED PRESCRIPTION Evaluation for diabetic shoes and inserts Dx: E11.65, Z79.4 blood sugar diagnostic (ONETOUCH ULTRA TEST) test strip Use as directed to check blood sugar 4-5 times daily DX: E11.65 Insulin: yes DM: yes lancets (ONE TOUCH DELICA) 33 gauge misc Use as directed to check blood sugar 4-5 times daily DX: E11.65 Insulin: yes DM: yes Incontinence Pad, Liner, Disp pads 1 Device as needed (urinary incontinence). Prevail incontinence pads. Dx: urinary incontinence. Size: small Blood Pressure Cuff - Home Use BLOOD PRESSURE CUFF FOR HOME USE. DX: LABILE BLOOD PRESSURE Blood-Glucose Meter (ONETOUCH ULTRA2) monitoring kit UAD to test blood sugar Alcohol Swabs padm UAD to clean skin before testing blood sugar and injecting insulins. No current facility-administered medications for this visit. Medications and allergies reviewed by this provider. 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 Social History Main Topics Smoking status: Former Smoker Packs/day: 1.00 Years: 28.00 Types: Cigarettes Start date: 1978 Quit date: 09/22/2005 Smokeless status: Never Used Comment: Father smoked in childhood. 2nd spouse smoked in home. Alcohol use: No Drug use: No Sexual activity: No Social History Narrative 1 year in current home. No basement, 1 parakeet. Room A/C. Electric baseboard heat. REVIEW OF SYSTEMS GENERAL: No weight loss, malaise or fevers NECK: Negative for lumps, goiter, pain and significant neck swelling RESPIRATORY: See HPI CARDIOVASCULAR: See HPI GI: No nausea, vomiting, or diarrhea SKIN: Negative for lesions, rash, and itching All other reviewed and negative other than HPI. OBJECTIVE: BP 120/68 (BP Site: Right Arm, BP Position: Sitting, BP Cuff Size: Large Adult) Pulse (!) 56 Resp 18 Wt 100.3 kg (221 lb 1.9 oz) SpO2 94% BMI 40.44 kg/m2. Vital signs reviewed by this provider. APPEARANCE Well appearing, alert, in no acute distress, well- hydrated, well nourished. HEART RRR with normal S1 and S2, no murmurs, no gallops, no JVD appreciated LUNG diminished breath sounds bilaterally. NO wheeze, rhonchi, or rales. Speaking in full sentences. ABDOMEN bowel sounds normoactive, no bruits, soft, non-tender, non-distended, no tenderness to palpation EXTREMITIES Extremities normal, No deformities, No skin discoloration and No edema. Cap refill WNL SKIN Skin color, texture, turgor normal, no suspicious rashes or lesions ASSESSMENT/PLAN: 1. Type 2 diabetes mellitus with diabetic neuropathy, with long-term current use of insulin (HCC) - ICD9: 250.60, 357.2, V58.67, ICD10: E11.40, Z79.4 (primary diagnosis) Controlled. - Continue current medications - Blood glucose monitoring on a four times a day schedule - Encouraged regular aerobic exercise and weight loss - BP goal of ANDlt;130/80 - LDL goal of ANDlt;100 - follow-up in January with Dr. Oliveira 2. Hyperlipidemia, unspecified hyperlipidemia type - ICD9: 272.4, ICD10: E78.5 - suboptimal control - Continue current medication. - Encouraged following a low fat, low cholesterol diet. - discussed increased triglycerides and how to reduce - Discussed the benefits of regular aerobic exercise and weight loss. - Encouraged following a low carbohydrate, healthy oil intake diet. - follow-up with Dr. Oliveira in January 3. Morbid obesity (HCC) - ICD9: 278.01, ICD10: E66.01 - Lengthy discussion in office today regarding diet and exercise. Discussed use of small plate to eat meals from, drink 1 glass of water 10- 15 minutes prior to eating meal, drink 8 glasses of water daily, eat fresh fruit and vegetable during meal first then lean protein such as grilled/baked chicken breast or fish, limit carbohydrate intake (less pasta, breads, rice and snack foods) as well as limiting sugars (desserts etc). Important to count / track your calories and exercise as well. 4. Essential hypertension - ICD9: 401.9, ICD10: I10 - good control - Continue current medication(s) - Encouraged dietary sodium restriction/DASH diet - Recommended regular aerobic exercise. - Recommend home blood pressure monitoring, to bring results in on next visit - Discussed need and benefit for weight loss. - Goal of BP ANDlt;140/90 - Recommended no refined sugar, low refined starch, healthy oil intake (olive oil), healthy protein (fish) along the lines of the Mediterranean diet. - follow-up in with Dr. Oliveira in January 5. 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 Albright 6. AF (paroxysmal atrial fibrillation) (HCC) - ICD9: 427.31, ICD10: I48.0 - rate controlled. On Xeralto. Continue current regime 7. Chronic obstructive pulmonary disease, unspecified COPD type (HCC) - ICD9: 496, ICD10: J44.9 - continue with current aerosol regime and oxygen 3L/NC as ordered 8. Chronic congestive heart failure, unspecified heart failure type (HCC) - ICD9: 428.0, ICD10: I50.9 - no signs of fluid overload. - continue to monitor salt intake - follow with cardiology 9. Gastroparesis - ICD9: 536.3, ICD10: K31.84 - follow with gastro for endoscopy Katie Podlogar, MED[employer] JOB TITLES.DATA INPUT CLERK Prescription instructions reviewed with patient as applicable. Patient advised if symptoms do not improve or if symptoms worsen sooner, to contact their primary care physician. Potential red flag symptoms discussed with the patient. Reviewed appropriate action plan to take if red flag symptoms occur. Patient agreeable to treatment plan. Referring Provider: NANDA OLIVEIRA) [[id number]] Allergies As of Date: 01/01/2018 Noted Allergy Reaction ADHESIVE TAPE (ROSINS) 04/04/2015 5 - Intolerance Comments: Surgical tape leaves rash Irritates skin badly and blisters along with medical tape CATS 04/10/2016 14 - Other: See Comments Comments: Congested and itchy, difficulty breathing DOGS 04/10/2016 14 - Other: See Comments Comments: Congestion, sneezing, and difficulty breathing ORPHENADRINE 04/10/2016 16 - Unknown CIPROFLOXACIN 12/11/2011 14 - Other: See Comments Comments: Red, hot, itchy rash KEFLEX (CEPHALEXIN) 07/10/2016 4 - Hives NIACIN 04/04/2015 16 - Unknown NIACIN PREPARATIONS 10/18/2004 PENICILLIN G 10/18/2004 PENICILLINS 04/04/2015 16 - Unknown REGLAN (METOCLOPRAMIDE HCL) 03/04/2017 14 - Other: See Comments Comments: Unable to sleep XANTHINES 10/18/2004 16 - Unknown Date Reviewed: 01/01/2018 Reviewed by: Yessi Sanchez LPN - Fully Assessed Reason for Visit: Recheck [92] Cmt: 6 week f/up Primary Visit Diagnosis:Type 2 diabetes mellitus with diabetic neuropathy, with long-term current use of insulin ([facility]) [E11.40, Z79.4] Other Visit Diagnoses:Hyperlipidemia, unspecified hyperlipidemia type [E78.5] Morbid obesity ([facility]) [E66.01] Essential hypertension [I10] 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 ([facility]) [I25.118] AF (paroxysmal atrial fibrillation) ([facility]) [I48.0] Chronic obstructive pulmonary disease, unspecified COPD type ([facility]) [J44.9] Chronic congestive heart failure, unspecified heart failure type ([facility]) [I50.9] Gastroparesis [K31.84] Prescriptions as of 01/01/2018 Sig: SUCRALFATE 100 MG/ML ORAL GISELLE* Take 10 mL by mouth four time* COMPOUNDED PRESCRIPTION OCD Titration for portable ox* MUPIROCIN 2 % TOPICAL OINTMENT Apply 1 application to affect* PROMETHAZINE 25 MG TABLET Take 1 tablet by mouth every * INSULIN LISPRO (U-200) 200 UN* Inject subcutaneously 14 unit* Patient taking differently: 14 Units. Inject subcutaneous* LYRICA 100 MG CAPSULE TAKE 1 CAPSULE BY MOUTH THREE* CAPSAICIN 0.075 % TOPICAL CRE* Apply 1 application to affect* ULTICARE PEN NEEDLE 31 GAUGE * USE DIRECTED. TO INJECT IN* VITAMIN C 500 MG TABLET TAKE 1 TABLET BY MOUTH DAILY FERROUS GLUCONATE 324 MG (38 * TAKE 1 TABLET BY MOUTH DAILY * INSULIN GLARGINE (U-100) 100 * Inject 60 units subcutaneousl* STOOL SOFTENER 100 MG CAPSULE TAKE 1 CAPSULE BY MOUTH DAILY CLAUDIA-KYLE 8.6 MG TABLET TAKE 1 TABLET BY MOUTH TWICE * ISOSORBIDE MONONITRATE ER 60 * Take 1.5 tablets by mouth onc* ATORVASTATIN 40 MG TABLET TAKE 1 TABLET BY MOUTH DAILY DILTIAZEM SR 180 MG 24 HR CAP TAKE 1 CAPSULE BY MOUTH EVERY* LEVOTHYROXINE 100 MCG TABLET TAKE 1 TABLET BY MOUTH EVERY * OMEPRAZOLE 20 MG CAPSULE,MARIA EUGENIA* TAKE 1 CAPSULE BY MOUTH EVERY* ELIQUIS 2.5 MG TABLET TAKE 1 TABLET BY MOUTH TWICE * NITROGLYCERIN 0.4 MG SUBLINGU* DISSOLVE 1 TAB UNDER THE TONG* METOPROLOL TARTRATE 50 MG TAB* Take 1 tablet by mouth twice * GLUCOSE 4 GRAM CHEWABLE TABLET Take 4 tablets by mouth as ne* OXYGEN (HOME THERAPY) Inhale 3 L/min as instructed * FLUTICASONE 50 MCG/ACTUATION * Use 2 Sprays in each nostril * METFORMIN ER 500 MG TABLET,EX* Take 2 tablets by mouth twice* DULOXETINE 60 MG CAPSULE,MARIA EUGENIA* Take 1 capsule by mouth once * ASPIRIN 81 MG TABLET,DELAYED * Take 1 tablet by mouth every * FUROSEMIDE 40 MG TABLET Take 1 tablet by mouth twice * ALBUTEROL SULFATE HFA 90 MCG/* Inhale 2 Puffs as instructed * COMPOUNDED PRESCRIPTION Evaluation for diabetic shoes* BLOOD SUGAR DIAGNOSTIC STRIPS Use as directed to check bloo* LANCETS 33 GAUGE Use as directed to check bloo* INCONTINENCE PAD, LINER, DISP* 1 Device as needed (urinary i* COMPOUNDED PRESCRIPTION BLOOD PRESSURE CUFF FOR HOME * BLOOD-GLUCOSE METER KIT UAD to test blood sugar ALCOHOL SWABS UAD to clean skin before test* Problem List As Of Date 01/01/2018 Noted Resolved SUBJECTIVE TINNITUS [H93.19] INVALID FOR* Obstructive sleep apnea [G47.33] INVALID FOR* Hyperlipidemia [E78.5] INVALID FOR* Coronary disease [I25.10] INVALID FOR* Diabetes mellitus, type II (HCC) [E11.9] INVALID FOR* Morbid obesity (HCC) [E66.01] Hypothyroidism [E03.9] Anxiety [F41.9] Sleep apnea [G47.30] 02/14/2017 Essential hypertension [I10] Coronary artery disease of [place] lions artery of stoney* AF (paroxysmal atrial fibrillation) (HCC) [I48.* COPD (chronic obstructive pulmonary disease) (H* GERD without esophagitis [K21.9] Dysphagia [R13.10] Constipation [K59.00] DM type 2 (diabetes mellitus, type 2) ([facility]) [E1* 02/14/2017 Shortness of breath [R06.02] 02/14/2017 Arthritis [M19.90] More... CHF (congestive heart failure) ([facility]) [I50.9] BPPV (benign paroxysmal positional vertigo) [H8*INVALID FOR* RLS (restless legs syndrome) [G25.81] INVALID FOR* Iron deficiency concern: RE RLS [E61.1] INVALID FOR* Tubular adenoma [D36.9] INVALID FOR* Incontinence [R32] More... Gastroparesis [K31.84] INVALID FOR* Pre-op testing [Z01.818] INVALID FOR* More... Encounter Status:Closed by MARIALOGKATIE SOLOMON CNP on 01/01/18 PROGRESS Observed: 12/25/2017 Status: COMPLETED Source: RUSSELL 2:32 PM [facility] REPOSITORY HNO ID: [id number] Author: Jefferson Connolly Service: (none) Author Type: Physician Type: Progress Notes Filed: 12/25/2017 2:39 PM Note Text: [facility] DEPARTMENT OF SURGERY Jefferson Connolly MD [address] [place] [address] NAME: Tamia Panda CLINIC NO: [id number] DATE OF SERVICE: December 25, 2017 This is an initial consultation for Tamia Panda who was referred to me by Dr. Hanna for evaluation of medical refractory gastroparesis. My final recommendation will be communicated via shared electronic medical record. CHIEF COMPLAINT Gastroparesis HISTORY OF PRESENT ILLNESS Tamia Panda is a 62 year old female who comes in today for surgical evaluation for management of gastroparesis. She has been follow- ed by Dr. Hanna. A smart pill showed isolated gastroparesis. Her weight is stable at 220. Given the number of medication she is currently as well as the multiple medical issues Dr. Hanna felt it would be best for her to have a POP as she is limited in the medications that can be utilized. Also the QT has been prolonged on EKG. PAST HISTORY PAST MEDICAL HISTORY Diagnosis Date - Acute chronic obstructive pulmonary disease with respiratory failure ([facility]) - AF (paroxysmal atrial fibrillation) ([facility]) - Anxiety - Arthritis Seeing Dr Elliott - Cervical cancer ([facility]) hysterectomy - CHF (congestive heart failure) ([facility]) - Chronic back pain Seeing Dr. Wallace - Constipation - COPD (chronic obstructive pulmonary disease) ([facility]) - Coronary atherosclerosis of port lions coronary artery Previously seeing Dr. Sosa - DDD (degenerative disc disease), lumbar - DM type 2 (diabetes mellitus, type 2) ([facility]) Seeing Dr. Foley for podiatry - DVT (deep venous thrombosis) ([facility]) Post op INA, BSO. - Dysphagia Seeing Dr. Beaulieu - Emphysema lung ([facility]) - Essential hypertension - Functional dyspepsia - Gastroparesis 2017 mild - GERD without esophagitis - Headache - History of colon polyps 11/28/2016 - Hyperlipidemia - Hypothyroidism - Incontinence Seeing Dr. Chapman - Morbid obesity ([facility]) - Muscle weakness - Nausea - PARESH on CPAP [facility], no longer using as of 10/2017, was not compliant - PE (pulmonary thromboembolism) ([facility]) Post op INA/BSO. - Pneumonia - RLS (restless legs syndrome) - Shortness of breath - Sleep apnea using oxygen currently, not on CPAP - Unsteadiness on feet - Wheezing PAST SURGICAL HISTORY Procedure Laterality Date - CHOLECYSTECTOMY - COLONOS W/REM POLYP SNARE 11/28/2016 Repeat 2019 - COLONOSCOPY Has had multiple in the past with polyps, cannot remember dates - [facility] W/BX 11/28/2016 - HERNIA REPAIR HX multiple - KNEE SURGERY HX Left x3 for torn cartilage - NASAL SURGERY PROCEDURE sinus - TOTAL ABDOM HYSTERECTOMY 1988 Cervical cancer - TUBAL LIGATION HX - WRIST SURGERY HX Right ganglion cyst removal x2 PHYSICAL EXAMINATION BP 103/62 (BP Site: Right Arm, BP Position: Sitting, BP Cuff Size: Large Adult) Pulse 83 Ht 157.5 cm (5' 2) Wt 100.2 kg (221 lb) SpO2 94% BMI 40.42 kg/m2 Well appearing and in NAD Abdomen soft, no tenderness and non distended Assessment ASSESSMENT 62 year old female with medical refractory gastroparesis. PLAN I discussed surgical therapy for gastroparesis in detail. Tamia Panda is candidate for the least invasive option with a peroral endoscopic pyloromyotomy as a gastric emptying procedure. The patient was educated on the risks including but not limited to bleeding, infection, perforation and the cardiopulmonary risks of anesthetic. The patient was also educated on the symptom success rate of 70% with the peroral endoscopic pyloromyotomy. The patient is aware of 30% possibility of no improvement in her symptoms. The patient is also aware that could be worsening of her symptoms. Patient was in agreement with this and will proceed with the POP procedure after receiving medical clearance for surgery. Thank you for allowing me to participate in the care of your patient. Jefferson Connolly MD PROGRESS Observed: 12/23/2017 Status: COMPLETED Source: RUSSELL 3:57 PM [facility] REPOSITORY HNO ID: [id number] Author: Nanda Rodriguez) Brian Service: (none) Author Type: Physician Type: Progress Notes Filed: 12/23/2017 3:57 PM Note Text: Reviewed. PROGRESS Observed: 12/23/2017 Status: COMPLETED Source: RUSSELL 10:05 AM [facility] REPOSITORY HNO ID: [id number] Author: Saad Allen) Larry Service: (none) Author Type: Registered Nurse Type: Progress Notes Filed: 12/23/2017 3:46 PM Note Text: PRIMARY CARE COORDINATION FOLLOW-UP NOTE Provider Action/FYI FYI Patient identified by name and date of . YES Spoke to patient Summary: TC from patient, states she came home from the hospital at 2 PM. States they told her she had a mild heart attack and has a small artery that is 100% blocked but has collateral circulation. Saw some damage in front of heart. States Dr. Albright told her she can go ahead and have her gastric procedure. Discussed checking for bleeding, lump, extensive bruising at cardiac cath site and calling phone number in patient instructions if these symptoms occur also instructed to review post cardiac cath instructions given, verbalized understanding and agreement. Concerns: TC to pt's home, son answered, pt is at the hospital having a cardiac cath. Left message PCC will call back later today Saad Silvestre RN December 23, 2017 10:06 AM Cleaning Supervisor plan for next outreach: Will follow up one week Signature Saad Silvestre RN December 23, 2017 CNPTOUTREACH Observed: 12/23/2017 Status: COMPLETED Source: RUSSELL 12:00 AM [facility] REPOSITORY Patient Outreach (FAMPWS) TAMIA PANDA ([id number]) 1955 F Date Time Provider Department 12/23/17 SAAD SILVESTRE (NINA) FAMPWS During your visit today, we recorded the following information about you: Saad Silvestre RN 12/23/2017 3:46 PM Signed PRIMARY CARE COORDINATION FOLLOW-UP NOTE Provider Action/FYI FYI Patient identified by name and date of . YES Spoke to patient Summary: TC from patient, states she came home from the hospital at 2 PM. States they told her she had a mild heart attack and has a small artery that is 100% blocked but has collateral circulation. Saw some damage in front of heart. States Dr. Albright told her she can go ahead and have her gastric procedure. Discussed checking for bleeding, lump, extensive bruising at cardiac cath site and calling phone number in patient instructions if these symptoms occur also instructed to review post cardiac cath instructions given, verbalized understanding and agreement. Concerns: TC to pt's home, son answered, pt is at the hospital having a cardiac cath. Left message PCC will call back later today Saad Silvestre RN December 23, 2017 10:06 AM Cleaning Supervisor plan for next outreach: Will follow up one week Signature Saad Silvestre RN December 23, 2017 Nanda Oliveira MD 12/23/2017 3:57 PM Signed Reviewed. Allergies As of Date: 12/23/2017 Noted Allergy Reaction ADHESIVE TAPE (ROSINS) 04/04/2015 5 - Intolerance Comments: Surgical tape leaves rash Irritates skin badly and blisters along with medical tape CATS 04/10/2016 14 - Other: See Comments Comments: Congested and itchy, difficulty breathing DOGS 04/10/2016 14 - Other: See Comments Comments: Congestion, sneezing, and difficulty breathing ORPHENADRINE 04/10/2016 16 - Unknown CIPROFLOXACIN 12/11/2011 14 - Other: See Comments Comments: Red, hot, itchy rash KEFLEX (CEPHALEXIN) 07/10/2016 4 - Hives NIACIN 04/04/2015 16 - Unknown NIACIN PREPARATIONS 10/18/2004 PENICILLIN G 10/18/2004 PENICILLINS 04/04/2015 16 - Unknown REGLAN (METOCLOPRAMIDE HCL) 03/04/2017 14 - Other: See Comments Comments: Unable to sleep XANTHINES 10/18/2004 16 - Unknown Date Reviewed: 12/18/2017 Reviewed by: Sarah Spring - Fully Assessed Reason for Visit: Glove Cuffer Chronic [facility] [7695] Prescriptions as of 12/23/2017 Sig: SUCRALFATE 100 MG/ML ORAL GISELLE* Take 10 mL by mouth four time* COMPOUNDED PRESCRIPTION OCD Titration for portable ox* MUPIROCIN 2 % TOPICAL OINTMENT Apply 1 application to affect* PROMETHAZINE 25 MG TABLET Take 1 tablet by mouth every * INSULIN LISPRO (U-200) 200 UN* Inject subcutaneously 14 unit* Patient taking differently: 14 Units. Inject subcutaneous* LYRICA 100 MG CAPSULE TAKE 1 CAPSULE BY MOUTH THREE* CAPSAICIN 0.075 % TOPICAL CRE* Apply 1 application to affect* ULTICARE PEN NEEDLE 31 GAUGE * USE DIRECTED. TO INJECT IN* VITAMIN C 500 MG TABLET TAKE 1 TABLET BY MOUTH DAILY FERROUS GLUCONATE 324 MG (38 * TAKE 1 TABLET BY MOUTH DAILY * INSULIN GLARGINE (U-100) 100 * Inject 60 units subcutaneousl* STOOL SOFTENER 100 MG CAPSULE TAKE 1 CAPSULE BY MOUTH DAILY CLAUDIA-KYLE 8.6 MG TABLET TAKE 1 TABLET BY MOUTH TWICE * ISOSORBIDE MONONITRATE ER 60 * Take 1.5 tablets by mouth onc* ATORVASTATIN 40 MG TABLET TAKE 1 TABLET BY MOUTH DAILY DILTIAZEM SR 180 MG 24 HR CAP TAKE 1 CAPSULE BY MOUTH EVERY* LEVOTHYROXINE 100 MCG TABLET TAKE 1 TABLET BY MOUTH EVERY * OMEPRAZOLE 20 MG CAPSULE,MARIA EUGENIA* TAKE 1 CAPSULE BY MOUTH EVERY* ELIQUIS 2.5 MG TABLET TAKE 1 TABLET BY MOUTH TWICE * NITROGLYCERIN 0.4 MG SUBLINGU* DISSOLVE 1 TAB UNDER THE TONG* METOPROLOL TARTRATE 50 MG TAB* Take 1 tablet by mouth twice * GLUCOSE 4 GRAM CHEWABLE TABLET Take 4 tablets by mouth as ne* OXYGEN (HOME THERAPY) Inhale 3 L/min as instructed * FLUTICASONE 50 MCG/ACTUATION * Use 2 Sprays in each nostril * METFORMIN ER 500 MG TABLET,EX* Take 2 tablets by mouth twice* DULOXETINE 60 MG CAPSULE,MARIA EUGENIA* Take 1 capsule by mouth once * ASPIRIN 81 MG TABLET,DELAYED * Take 1 tablet by mouth every * FUROSEMIDE 40 MG TABLET Take 1 tablet by mouth twice * ALBUTEROL SULFATE HFA 90 MCG/* Inhale 2 Puffs as instructed * COMPOUNDED PRESCRIPTION Evaluation for diabetic shoes* BLOOD SUGAR DIAGNOSTIC STRIPS Use as directed to check bloo* LANCETS 33 GAUGE Use as directed to check bloo* INCONTINENCE PAD, LINER, DISP* 1 Device as needed (urinary i* COMPOUNDED PRESCRIPTION BLOOD PRESSURE CUFF FOR HOME * BLOOD-GLUCOSE METER KIT UAD to test blood sugar ALCOHOL SWABS UAD to clean skin before test* Problem List As Of Date 12/23/2017 Noted Resolved SUBJECTIVE TINNITUS [H93.19] INVALID FOR* Obstructive sleep apnea [G47.33] INVALID FOR* Hyperlipidemia [E78.5] INVALID FOR* Coronary disease [I25.10] INVALID FOR* Diabetes mellitus, type II ([facility]) [E11.9] INVALID FOR* Morbid obesity ([facility]) [E66.01] Hypothyroidism [E03.9] Anxiety [F41.9] Sleep apnea [G47.30] 02/14/2017 Essential hypertension [I10] Coronary artery disease of [place] artery of stoney* AF (paroxysmal atrial fibrillation) ([facility]) [I48.* COPD (chronic obstructive pulmonary disease) (H* GERD without esophagitis [K21.9] Dysphagia [R13.10] Constipation [K59.00] DM type 2 (diabetes mellitus, type 2) ([facility]) [E1* 02/14/2017 Shortness of breath [R06.02] 02/14/2017 Arthritis [M19.90] More... CHF (congestive heart failure) ([facility]) [I50.9] BPPV (benign paroxysmal positional vertigo) [H8*INVALID FOR* RLS (restless legs syndrome) [G25.81] INVALID FOR* Iron deficiency concern: RE RLS [E61.1] INVALID FOR* Tubular adenoma [D36.9] INVALID FOR* Incontinence [R32] More... Gastroparesis [K31.84] INVALID FOR* Pre-op testing [Z01.818] INVALID FOR* More... Encounter Status:Closed by SAAD SILVESTRE on 12/24/17 PROGRESS Observed: 12/18/2017 Status: COMPLETED Source: RUSSELL 3:30 PM CLINIC OTHER CAMPUS REPOSITORY [facility] ID: [id number] Author: Donal Albright Service: (none) Author Type: Physician Type: Progress Notes Filed: 12/18/2017 3:51 PM Note Text: PERTINENT CARDIAC HISTORY ASHD - PCI 2003 Atrial fib - chronic HTN HL DM PARESH - CPAP PE/DVT 1987 - a/c 6 mos CRF CHF - diastolic ADHERENCE TO GUIDELINES BACILIO-I or ARB for HF with prior LVEF<40 (NQF 0081) - N/A ASA or Plavix for ASHD (NQF 0067) - met Beta sudhakar for ASHD with prior DC or prior LVEF<40 (NQF 0070) - N/A Beta sudhakar for HF with prior LVEF<40 (NQF 0083) - N/A BACILIO-I or ARB for ASHD with DM or prior LVEF<40 (NQF 0066) - low BP Statin therapy for ASHD or FHL or DM - met BMI documented and plan if >25 (NQF 0421) - lifestyle recommendation form Tobacco use screening and referral (NQF 0028) - lifestyle recommendation form Recommendation for whole food, plant based diet - lifestyle recommendation form CLINICAL IMPRESSION/PLAN: Tamia Panda underwent stress testing today which was abnormal, as noted below. There is discordance between the 2 studies, although the presence of atrial fibrillation may have affected specificity. She is at least at intermediate risk of perioperative cardiac complications. She is in chronic atrial fibrillation with good control of rate and no evidence of decompensated heart failure. I recommend that her coronary anatomy be defined prior to elective surgery. We will arrange diagnostic angiography at [facility]. Hopefully she will have disease which will allow us to proceed with surgery in a timely fashion. If she requires stenting, I would discuss with her the options and consequences of bare-metal versus drug-eluting stent, as the latter would postpone surgery for at least a month or 2 longer. In the meantime, I have asked her to use nitroglycerin liberally for chest discomfort. It would be difficult for her to make the major lifestyle changes which would be necessary to substantially reduce her risk of coronary disease progression. Her beta sudhakar and isosorbide could be increased for better angina control. I will see her on a to be arranged basis. Written and verbal health teaching given to patient, patient verbalizes understanding and agrees with treatment plan. DIAGNOSIS FOR VISIT: Abnormal stress test HISTORY OF PRESENT ILLNESS Tamia Panda returns for follow-up of her stress test, which was performed this morning. She is scheduled for surgery tomorrow. She took her Eliquis this morning. She continues to have intermittent tightness in the chest for which she occasionally uses nitroglycerin. I tablet is usually effective. She's had no recent pain that radiates down the left arm. No pain has awoken her from sleep in the last few weeks. She is unable to to exercise due to her orthopedic considerations and obesity. She denies syncope, palpitations, TIAs, amaurosis. ALLERGIES: ALLERGIES Allergen Reactions - Adhesive Tape (Adrienne* Intolerance Surgical tape leaves rash Irritates skin badly and blisters along with medical tape - Cats Other: See Comments Congested and itchy, difficulty breathing - Dogs Other: See Comments Congestion, sneezing, and difficulty breathing - Orphenadrine Unknown - Ciprofloxacin Other: See Comments Red, hot, itchy rash - Keflex [Cephalexin] Hives - Niacin Unknown - Niacin Preparations - Penicillin G - Penicillins Unknown - Reglan [Metoclopram* Other: See Comments Unable to sleep - Xanthines Unknown CURRENT OUTPATIENT MEDICATIONS: sucralfate (CARAFATE) 100 mg/mL suspension Take 10 mL by mouth four times daily. COMPOUNDED PRESCRIPTION OCD Titration for portable oxygen concentrator Oxygen Flow Rate between 2-6 liters. To keep oxygen saturation at or above 92%. mupirocin (BACTROBAN) 2 % ointment Apply 1 application to affected area three times daily. promethazine (PHENERGAN) 25 mg tablet Take 1 tablet by mouth every 6 hours as needed. insulin lispro (HUMALOG KWIKPEN INSULIN) 200 unit/mL (3 mL) injection Inject subcutaneously 14 units with breakfast, 22 units with lunch, and 24 units with dinner LYRICA 100 mg capsule TAKE 1 CAPSULE BY MOUTH THREE TIMES A DAY capsaicin (ZOSTRIX-HP) 0.075 % topical cream Apply 1 application to affected area four times daily. ULTICARE PEN NEEDLE 31 gauge x 5/16 ndle USE DIRECTED. TO INJECT INSULINS VITAMIN C 500 mg tablet TAKE 1 TABLET BY MOUTH DAILY Ferrous Gluconate (FERGON) 324 mg (38 mg iron) tablet TAKE 1 TABLET BY MOUTH DAILY WITH BREAKFAST insulin glargine (LANTUS SOLOSTAR) 100 unit/mL (3 mL) inpn Inject 60 units subcutaneously twice daily STOOL SOFTENER 100 mg capsule TAKE 1 CAPSULE BY MOUTH DAILY CLAUDIA-KYLE 8.6 mg tab TAKE 1 TABLET BY MOUTH TWICE A DAY isosorbide mononitrate ER (IMDUR) 60 mg 24 hr tablet Take 1.5 tablets by mouth once daily. In the morning atorvastatin (LIPITOR) 40 mg tablet TAKE 1 TABLET BY MOUTH DAILY diltiazem CD (CARDIZEM CD, CARTIA XT) 180 mg 24 hr capsule TAKE 1 CAPSULE BY MOUTH EVERY MORNING levothyroxine (SYNTHROID) 100 mcg tablet TAKE 1 TABLET BY MOUTH EVERY MORNING omeprazole (PRILOSEC) 20 mg capsule TAKE 1 CAPSULE BY MOUTH EVERY MORNING ELIQUIS 2.5 mg tab tab(s) TAKE 1 TABLET BY MOUTH TWICE A DAY nitroglycerin sublingual (NITROQUICK) 0.4 mg SL tablet DISSOLVE 1 TAB UNDER THE TONGUE NEEDED FOR CHEST PAIN EVERY 5 MINUTES UP TO 3 TIMES. IF NO RELIEF CALL 911. metoprolol tartrate, short acting, (LOPRESSOR) 50 mg tablet Take 1 tablet by mouth twice daily. glucose 4 gram chewable tablet Take 4 tablets by mouth as needed for Low Blood Sugar. OXYGEN, HOME THERAPY, Inhale 3 L/min as instructed as directed. fluticasone (FLONASE) 50 mcg/actuation nasal spray Use 2 Sprays in each nostril once daily. metFORMIN ER (GLUCOPHAGE XR) 500 mg 24 hr tablet Take 2 tablets by mouth twice daily. DULoxetine (CYMBALTA) 60 mg capsule Take 1 capsule by mouth once daily. aspirin, enteric coated (ASPIRIN, ENTERIC COATED) 81 mg EC tablet Take 1 tablet by mouth every morning. furosemide (LASIX) 40 mg tablet Take 1 tablet by mouth twice daily. albuterol HFA (VENTOLIN HFA) 90 mcg/actuation inhaler Inhale 2 Puffs as instructed every 4 hours as needed for Wheezing/Shortness of Breath. COMPOUNDED PRESCRIPTION Evaluation for diabetic shoes and inserts Dx: E11.65, Z79.4 blood sugar diagnostic (BUX ULTRA TEST) test strip Use as directed to check blood sugar 4-5 times daily DX: E11. Insulin: yes DM: yes lancets (ONE TOUCH DELICA) 33 gauge misc Use as directed to check blood sugar 4-5 times daily DX: E11.65 Insulin: yes DM: yes Incontinence Pad, Liner, Disp pads 1 Device as needed (urinary incontinence). Prevail incontinence pads. Dx: urinary incontinence. Size: small Blood Pressure Cuff - Home Use BLOOD PRESSURE CUFF FOR HOME USE. DX: LABILE BLOOD PRESSURE Blood-Glucose Meter (ONETOUCH ULTRA2) monitoring kit UAD to test blood sugar Alcohol Swabs padm UAD to clean skin before testing blood sugar and injecting insulins. PHYSICAL EXAMINATION: VITAL SIGNS: BP 104/70 Pulse 68 Ht 5' 2 (1.58m) Wt 217 lb 1.6 oz (98.5kg) BMI 39.70 kg/(m2). Chest: Clear to percussion and auscultation. Trachea is midline. Air entry is equal. Cardiac: Regular rhythm. S1 and S2 are normal. PMI is nondisplaced. There is a 1/6 systolic ejection murmur. Carotids are brisk without bruits. JVP is less than 10 cm. Abdomen: Soft and nontender. Obesity precludes adequate examination. There are no pulsatile masses or bruits. No liver enlargement. Bowel sounds are active. Extremities: 1 plus edema. Pulses are diminished but symmetrical. Stress test done at [facility] in 01/05 reportedly showed normal wall motion at rest, but evidence of a moderate to large inferolateral scar with minimal anterior ischemia. This was a pharmacologic test, as was today's study, which showed evidence of a small basilar lateral fixed defect with moderate lateral ischemia. She did not undergo angiography following her abnormal stress test in 2016. Electronically Signed: Donal Albright MD December 18, 2017 3:30 PM CC: Nanda Oliveira MD CNOV Observed: 12/18/2017 Status: COMPLETED Source: RUSSELL 3:00 PM [facility] OTHER [place] REPOSITORY Office Visit (AGCARDWST) TAMIA PANDA ([id number]) 1955 F Date Time Provider Department 12/18/17 3:00 PM DONAL ALBRIGHT During your visit today, we recorded the following information about you: Pulse Blood pressure Weight Height 68/minute 104/70 98.5 kg 1.575 m Donal Albright MD 12/18/2017 3:51 PM Signed PERTINENT CARDIAC HISTORY ASHD - PCI 2003 Atrial fib - chronic HTN HL DM PARESH - CPAP PE/DVT 1987 - a/c 6 mos CRF CHF - diastolic ADHERENCE TO GUIDELINES BACILIO-I or ARB for HF with prior LVEFANDlt;40 (NQF 0081) - N/A ASA or Plavix for ASHD (NQF 0067) - met Beta sudhakar for ASHD with prior DC or prior LVEFANDlt;40 (NQF 0070) - N/A Beta sudhakar for HF with prior LVEFANDlt;40 (NQF 0083) - N/A BACILIO-I or ARB for ASHD with DM or prior LVEFANDlt;40 (NQF 0066) - low BP Statin therapy for ASHD or FHL or DM - met BMI documented and plan if ANDgt;25 (NQF 0421) - lifestyle recommendation form Tobacco use screening and referral (NQF 0028) - lifestyle recommendation form Recommendation for whole food, plant based diet - lifestyle recommendation form CLINICAL IMPRESSION/PLAN: Tamia Panda underwent stress testing today which was abnormal, as noted below. There is discordance between the 2 studies, although the presence of atrial fibrillation may have affected specificity. She is at least at intermediate risk of perioperative cardiac complications. She is in chronic atrial fibrillation with good control of rate and no evidence of decompensated heart failure. I recommend that her coronary anatomy be defined prior to elective surgery. We will arrange diagnostic angiography at [facility]. Hopefully she will have disease which will allow us to proceed with surgery in a timely fashion. If she requires stenting, I would discuss with her the options and consequences of bare-metal versus drug-eluting stent, as the latter would postpone surgery for at least a month or 2 longer. In the meantime, I have asked her to use nitroglycerin liberally for chest discomfort. It would be difficult for her to make the major lifestyle changes which would be necessary to substantially reduce her risk of coronary disease progression. Her beta sudhakar and isosorbide could be increased for better angina control. I will see her on a to be arranged basis. Written and verbal health teaching given to patient, patient verbalizes understanding and agrees with treatment plan. DIAGNOSIS FOR VISIT: Abnormal stress test HISTORY OF PRESENT ILLNESS Tamia Panda returns for follow-up of her stress test, which was performed this morning. She is scheduled for surgery tomorrow. She took her Eliquis this morning. She continues to have intermittent tightness in the chest for which she occasionally uses nitroglycerin. I tablet is usually effective. She's had no recent pain that radiates down the left arm. No pain has awoken her from sleep in the last few weeks. She is unable to to exercise due to her orthopedic considerations and obesity. She denies syncope, palpitations, TIAs, amaurosis. ALLERGIES: ALLERGIES Allergen Reactions - Adhesive Tape (Adrienne* Intolerance Surgical tape leaves rash Irritates skin badly and blisters along with medical tape - Cats Other: See Comments Congested and itchy, difficulty breathing - Dogs Other: See Comments Congestion, sneezing, and difficulty breathing - Orphenadrine Unknown - Ciprofloxacin Other: See Comments Red, hot, itchy rash - Keflex [Cephalexin] Hives - Niacin Unknown - Niacin Preparations - Penicillin G - Penicillins Unknown - Reglan [Metoclopram* Other: See Comments Unable to sleep - Xanthines Unknown CURRENT OUTPATIENT MEDICATIONS: sucralfate (CARAFATE) 100 mg/mL suspension Take 10 mL by mouth four times daily. COMPOUNDED PRESCRIPTION OCD Titration for portable oxygen concentrator Oxygen Flow Rate between 2-6 liters. To keep oxygen saturation at or above 92%. mupirocin (BACTROBAN) 2 % ointment Apply 1 application to affected area three times daily. promethazine (PHENERGAN) 25 mg tablet Take 1 tablet by mouth every 6 hours as needed. insulin lispro (HUMALOG KWIKPEN INSULIN) 200 unit/mL (3 mL) injection Inject subcutaneously 14 units with breakfast, 22 units with lunch, and 24 units with dinner LYRICA 100 mg capsule TAKE 1 CAPSULE BY MOUTH THREE TIMES A DAY capsaicin (ZOSTRIX-HP) 0.075 % topical cream Apply 1 application to affected area four times daily. ULTICARE PEN NEEDLE 31 gauge x 5/16ANDquot; ndle USE DIRECTED. TO INJECT INSULINS VITAMIN C 500 mg tablet TAKE 1 TABLET BY MOUTH DAILY Ferrous Gluconate (FERGON) 324 mg (38 mg iron) tablet TAKE 1 TABLET BY MOUTH DAILY WITH BREAKFAST insulin glargine (LANTUS SOLOSTAR) 100 unit/mL (3 mL) inpn Inject 60 units subcutaneously twice daily STOOL SOFTENER 100 mg capsule TAKE 1 CAPSULE BY MOUTH DAILY CLAUDIA-KYLE 8.6 mg tab TAKE 1 TABLET BY MOUTH TWICE A DAY isosorbide mononitrate ER (IMDUR) 60 mg 24 hr tablet Take 1.5 tablets by mouth once daily. In the morning atorvastatin (LIPITOR) 40 mg tablet TAKE 1 TABLET BY MOUTH DAILY diltiazem CD (CARDIZEM CD, CARTIA XT) 180 mg 24 hr capsule TAKE 1 CAPSULE BY MOUTH EVERY MORNING levothyroxine (SYNTHROID) 100 mcg tablet TAKE 1 TABLET BY MOUTH EVERY MORNING omeprazole (PRILOSEC) 20 mg capsule TAKE 1 CAPSULE BY MOUTH EVERY MORNING ELIQUIS 2.5 mg tab tab(s) TAKE 1 TABLET BY MOUTH TWICE A DAY nitroglycerin sublingual (NITROQUICK) 0.4 mg SL tablet DISSOLVE 1 TAB UNDER THE TONGUE NEEDED FOR CHEST PAIN EVERY 5 MINUTES UP TO 3 TIMES. IF NO RELIEF CALL 911. metoprolol tartrate, short acting, (LOPRESSOR) 50 mg tablet Take 1 tablet by mouth twice daily. glucose 4 gram chewable tablet Take 4 tablets by mouth as needed for Low Blood Sugar. OXYGEN, HOME THERAPY, Inhale 3 L/min as instructed as directed. fluticasone (FLONASE) 50 mcg/actuation nasal spray Use 2 Sprays in each nostril once daily. metFORMIN ER (GLUCOPHAGE XR) 500 mg 24 hr tablet Take 2 tablets by mouth twice daily. DULoxetine (CYMBALTA) 60 mg capsule Take 1 capsule by mouth once daily. aspirin, enteric coated (ASPIRIN, ENTERIC COATED) 81 mg EC tablet Take 1 tablet by mouth every morning. furosemide (LASIX) 40 mg tablet Take 1 tablet by mouth twice daily. albuterol HFA (VENTOLIN HFA) 90 mcg/actuation inhaler Inhale 2 Puffs as instructed every 4 hours as needed for Wheezing/Shortness of Breath. COMPOUNDED PRESCRIPTION Evaluation for diabetic shoes and inserts Dx: E11.65, Z79.4 blood sugar diagnostic (ONETOUCH ULTRA TEST) test strip Use as directed to check blood sugar 4-5 times daily DX: E11.65 Insulin: yes DM: yes lancets (ONE TOUCH DELICA) 33 gauge misc Use as directed to check blood sugar 4-5 times daily DX: E11.65 Insulin: yes DM: yes Incontinence Pad, Liner, Disp pads 1 Device as needed (urinary incontinence). Prevail incontinence pads. Dx: urinary incontinence. Size: small Blood Pressure Cuff - Home Use BLOOD PRESSURE CUFF FOR HOME USE. DX: LABILE BLOOD PRESSURE Blood-Glucose Meter (ONETOUCH ULTRA2) monitoring kit UAD to test blood sugar Alcohol Swabs padm UAD to clean skin before testing blood sugar and injecting insulins. PHYSICAL EXAMINATION: VITAL SIGNS: BP 104/70 Pulse 68 Ht 5' 2ANDquot; (1.58m) Wt 217 lb 1.6 oz (98.5kg) BMI 39.70 kg/(m2). Chest: Clear to percussion and auscultation. Trachea is midline. Air entry is equal. Cardiac: Regular rhythm. S1 and S2 are normal. PMI is nondisplaced. There is a 1/6 systolic ejection murmur. Carotids are brisk without bruits. JVP is less than 10 cm. Abdomen: Soft and nontender. Obesity precludes adequate examination. There are no pulsatile masses or bruits. No liver enlargement. Bowel sounds are active. Extremities: 1 plus edema. Pulses are diminished but symmetrical. Stress test done at [facility] in 01/05 reportedly showed normal wall motion at rest, but evidence of a ANDquot;moderate to large inferolateral scarANDquot; with minimal anterior ischemia. This was a pharmacologic test, as was today's study, which showed evidence of a small basilar lateral fixed defect with moderate lateral ischemia. She did not undergo angiography following her abnormal stress test in 2016. Electronically Signed: Donal Albright MD December 18, 2017 3:30 PM CC: Nanda Oliveira MD Referring Provider: DONAL ALBRIGHT [[id number]] Allergies As of Date: 12/18/2017 Noted Allergy Reaction ADHESIVE TAPE (ROSINS) 04/04/2015 5 - Intolerance Comments: Surgical tape leaves rash Irritates skin badly and blisters along with medical tape CATS 04/10/2016 14 - Other: See Comments Comments: Congested and itchy, difficulty breathing DOGS 04/10/2016 14 - Other: See Comments Comments: Congestion, sneezing, and difficulty breathing ORPHENADRINE 04/10/2016 16 - Unknown CIPROFLOXACIN 12/11/2011 14 - Other: See Comments Comments: Red, hot, itchy rash KEFLEX (CEPHALEXIN) 07/10/2016 4 - Hives NIACIN 04/04/2015 16 - Unknown NIACIN PREPARATIONS 10/18/2004 PENICILLIN G 10/18/2004 PENICILLINS 04/04/2015 16 - Unknown REGLAN (METOCLOPRAMIDE HCL) 03/04/2017 14 - Other: See Comments Comments: Unable to sleep XANTHINES 10/18/2004 16 - Unknown Date Reviewed: 12/18/2017 Reviewed by: Sarah Spring - Fully Assessed Reason for Visit: Follow Up [171] Primary Visit Diagnosis:ASHD (arteriosclerotic heart disease) [I25.10] Other Visit Diagnosis:Abnormal stress test [R94.39] Order(s):LEFT HEART CATH,PERCUTANEOUS [[id number]] Order #: [id number]: 1 Prescriptions as of 12/18/2017 Sig: SUCRALFATE 100 MG/ML ORAL GISELLE* Take 10 mL by mouth four time* COMPOUNDED PRESCRIPTION OCD Titration for portable ox* MUPIROCIN 2 % TOPICAL OINTMENT Apply 1 application to affect* PROMETHAZINE 25 MG TABLET Take 1 tablet by mouth every * INSULIN LISPRO (U-200) 200 UN* Inject subcutaneously 14 unit* Patient taking differently: 14 Units. Inject subcutaneous* LYRICA 100 MG CAPSULE TAKE 1 CAPSULE BY MOUTH THREE* CAPSAICIN 0.075 % TOPICAL CRE* Apply 1 application to affect* ULTICARE PEN NEEDLE 31 GAUGE * USE DIRECTED. TO INJECT IN* VITAMIN C 500 MG TABLET TAKE 1 TABLET BY MOUTH DAILY FERROUS GLUCONATE 324 MG (38 * TAKE 1 TABLET BY MOUTH DAILY * INSULIN GLARGINE (U-100) 100 * Inject 60 units subcutaneousl* STOOL SOFTENER 100 MG CAPSULE TAKE 1 CAPSULE BY MOUTH DAILY CLAUDIA-KYLE 8.6 MG TABLET TAKE 1 TABLET BY MOUTH TWICE * ISOSORBIDE MONONITRATE ER 60 * Take 1.5 tablets by mouth onc* ATORVASTATIN 40 MG TABLET TAKE 1 TABLET BY MOUTH DAILY DILTIAZEM SR 180 MG 24 HR CAP TAKE 1 CAPSULE BY MOUTH EVERY* LEVOTHYROXINE 100 MCG TABLET TAKE 1 TABLET BY MOUTH EVERY * OMEPRAZOLE 20 MG CAPSULE,MARIA EUGENIA* TAKE 1 CAPSULE BY MOUTH EVERY* ELIQUIS 2.5 MG TABLET TAKE 1 TABLET BY MOUTH TWICE * NITROGLYCERIN 0.4 MG SUBLINGU* DISSOLVE 1 TAB UNDER THE TONG* METOPROLOL TARTRATE 50 MG TAB* Take 1 tablet by mouth twice * GLUCOSE 4 GRAM CHEWABLE TABLET Take 4 tablets by mouth as ne* OXYGEN (HOME THERAPY) Inhale 3 L/min as instructed * FLUTICASONE 50 MCG/ACTUATION * Use 2 Sprays in each nostril * METFORMIN ER 500 MG TABLET,EX* Take 2 tablets by mouth twice* DULOXETINE 60 MG CAPSULE,MARIA EUGENIA* Take 1 capsule by mouth once * ASPIRIN 81 MG TABLET,DELAYED * Take 1 tablet by mouth every * FUROSEMIDE 40 MG TABLET Take 1 tablet by mouth twice * ALBUTEROL SULFATE HFA 90 MCG/* Inhale 2 Puffs as instructed * COMPOUNDED PRESCRIPTION Evaluation for diabetic shoes* BLOOD SUGAR DIAGNOSTIC STRIPS Use as directed to check bloo* LANCETS 33 GAUGE Use as directed to check bloo* INCONTINENCE PAD, LINER, DISP* 1 Device as needed (urinary i* COMPOUNDED PRESCRIPTION BLOOD PRESSURE CUFF FOR HOME * BLOOD-GLUCOSE METER KIT UAD to test blood sugar ALCOHOL SWABS UAD to clean skin before test* Problem List As Of Date 12/18/2017 Noted Resolved SUBJECTIVE TINNITUS [H93.19] INVALID FOR* Obstructive sleep apnea [G47.33] INVALID FOR* Hyperlipidemia [E78.5] INVALID FOR* Coronary disease [I25.10] INVALID FOR* Diabetes mellitus, type II (HCC) [E11.9] INVALID FOR* Morbid obesity ([facility]) [E66.01] Hypothyroidism [E03.9] Anxiety [F41.9] Sleep apnea [G47.30] 02/14/2017 Essential hypertension [I10] Coronary artery disease of [place] artery of stoney* AF (paroxysmal atrial fibrillation) ([facility]) [I48.* COPD (chronic obstructive pulmonary disease) (H* GERD without esophagitis [K21.9] Dysphagia [R13.10] Constipation [K59.00] DM type 2 (diabetes mellitus, type 2) ([facility]) [E1* 02/14/2017 Shortness of breath [R06.02] 02/14/2017 Arthritis [M19.90] More... CHF (congestive heart failure) ([facility]) [I50.9] BPPV (benign paroxysmal positional vertigo) [H8*INVALID FOR* RLS (restless legs syndrome) [G25.81] INVALID FOR* Iron deficiency concern: RE RLS [E61.1] INVALID FOR* Tubular adenoma [D36.9] INVALID FOR* Incontinence [R32] More... Gastroparesis [K31.84] INVALID FOR* Pre-op testing [Z01.818] INVALID FOR* More... Level of Service: SPORTS PE 35.00 (AG) [[id number]] Follow-up and Disposition History Recorded Encounter Status:Closed by DONAL ALBRIGHT MD on 12/18/17 MARICARMEN Observed: 12/18/2017 Status: COMPLETED Source: [facility] 12:00 AM CLINIC OTHER CAMPUS REPOSITORY Telephone (AGCARDWST) TAMIA PANDA ([id number]) 1955 F Date Time Provider Department 12/18/17 DONAL ALBRIGHT AGCARDWST During your visit today, we recorded the following information about you: Dami Bravo RN, RN 12/18/2017 4:52 PM Signed Spoke to Uma at [facility]. Patient will be set up for heart cath at [facility] next week. Demographics, OV notes, ECG, CXR, labs, and insurance cards faxed. Notified surgeon's office that cardiac clearance was not granted. Dami Bravo RN, RN 12/19/2017 10:20 AM Signed [facility] medical records requesting cath report, op note, DC summary from stent placement in 2003. Faxed request for same records to Jesse @ [phone]. [facility] states that they will not proceed with cath without these records. Dami Bravo RN, RN 12/22/2017 10:22 AM Signed Received records from [facility] from 2011. Cath report portion forwarded to [facility] for cath. In folder for review, thank you. Allergies As of Date: 12/18/2017 Noted Allergy Reaction ADHESIVE TAPE (ROSINS) 04/04/2015 5 - Intolerance Comments: Surgical tape leaves rash Irritates skin badly and blisters along with medical tape CATS 04/10/2016 14 - Other: See Comments Comments: Congested and itchy, difficulty breathing DOGS 04/10/2016 14 - Other: See Comments Comments: Congestion, sneezing, and difficulty breathing ORPHENADRINE 04/10/2016 16 - Unknown CIPROFLOXACIN 12/11/2011 14 - Other: See Comments Comments: Red, hot, itchy rash KEFLEX (CEPHALEXIN) 07/10/2016 4 - Hives NIACIN 04/04/2015 16 - Unknown NIACIN PREPARATIONS 10/18/2004 PENICILLIN G 10/18/2004 PENICILLINS 04/04/2015 16 - Unknown REGLAN (METOCLOPRAMIDE HCL) 03/04/2017 14 - Other: See Comments Comments: Unable to sleep XANTHINES 10/18/2004 16 - Unknown Date Reviewed: 12/18/2017 Reviewed by: Sarah Spring - Fully Assessed Reason for Visit: Patient Update [1234] Prescriptions as of 12/18/2017 Sig: SUCRALFATE 100 MG/ML ORAL GISELLE* Take 10 mL by mouth four time* COMPOUNDED PRESCRIPTION OCD Titration for portable ox* MUPIROCIN 2 % TOPICAL OINTMENT Apply 1 application to affect* PROMETHAZINE 25 MG TABLET Take 1 tablet by mouth every * INSULIN LISPRO (U-200) 200 UN* Inject subcutaneously 14 unit* Patient taking differently: 14 Units. Inject subcutaneous* LYRICA 100 MG CAPSULE TAKE 1 CAPSULE BY MOUTH THREE* CAPSAICIN 0.075 % TOPICAL CRE* Apply 1 application to affect* ULTICARE PEN NEEDLE 31 GAUGE * USE DIRECTED. TO INJECT IN* VITAMIN C 500 MG TABLET TAKE 1 TABLET BY MOUTH DAILY FERROUS GLUCONATE 324 MG (38 * TAKE 1 TABLET BY MOUTH DAILY * INSULIN GLARGINE (U-100) 100 * Inject 60 units subcutaneousl* STOOL SOFTENER 100 MG CAPSULE TAKE 1 CAPSULE BY MOUTH DAILY CLAUDIA-KYLE 8.6 MG TABLET TAKE 1 TABLET BY MOUTH TWICE * ISOSORBIDE MONONITRATE ER 60 * Take 1.5 tablets by mouth onc* ATORVASTATIN 40 MG TABLET TAKE 1 TABLET BY MOUTH DAILY DILTIAZEM SR 180 MG 24 HR CAP TAKE 1 CAPSULE BY MOUTH EVERY* LEVOTHYROXINE 100 MCG TABLET TAKE 1 TABLET BY MOUTH EVERY * OMEPRAZOLE 20 MG CAPSULE,MARIA EUGENIA* TAKE 1 CAPSULE BY MOUTH EVERY* ELIQUIS 2.5 MG TABLET TAKE 1 TABLET BY MOUTH TWICE * NITROGLYCERIN 0.4 MG SUBLINGU* DISSOLVE 1 TAB UNDER THE TONG* METOPROLOL TARTRATE 50 MG TAB* Take 1 tablet by mouth twice * GLUCOSE 4 GRAM CHEWABLE TABLET Take 4 tablets by mouth as ne* OXYGEN (HOME THERAPY) Inhale 3 L/min as instructed * FLUTICASONE 50 MCG/ACTUATION * Use 2 Sprays in each nostril * METFORMIN ER 500 MG TABLET,EX* Take 2 tablets by mouth twice* DULOXETINE 60 MG CAPSULE,MARIA EUGENIA* Take 1 capsule by mouth once * ASPIRIN 81 MG TABLET,DELAYED * Take 1 tablet by mouth every * FUROSEMIDE 40 MG TABLET Take 1 tablet by mouth twice * ALBUTEROL SULFATE HFA 90 MCG/* Inhale 2 Puffs as instructed * COMPOUNDED PRESCRIPTION Evaluation for diabetic shoes* BLOOD SUGAR DIAGNOSTIC STRIPS Use as directed to check bloo* LANCETS 33 GAUGE Use as directed to check bloo* INCONTINENCE PAD, LINER, DISP* 1 Device as needed (urinary i* COMPOUNDED PRESCRIPTION BLOOD PRESSURE CUFF FOR HOME * BLOOD-GLUCOSE METER KIT UAD to test blood sugar ALCOHOL SWABS UAD to clean skin before test* Problem List As Of Date 12/18/2017 Noted Resolved SUBJECTIVE TINNITUS [H93.19] INVALID FOR* Obstructive sleep apnea [G47.33] INVALID FOR* Hyperlipidemia [E78.5] INVALID FOR* Coronary disease [I25.10] INVALID FOR* Diabetes mellitus, type II ([facility]) [E11.9] INVALID FOR* Morbid obesity ([facility]) [E66.01] Hypothyroidism [E03.9] Anxiety [F41.9] Sleep apnea [G47.30] 02/14/2017 Essential hypertension [I10] Coronary artery disease of [place] artery of stoney* AF (paroxysmal atrial fibrillation) ([facility]) [I48.* COPD (chronic obstructive pulmonary disease) (H* GERD without esophagitis [K21.9] Dysphagia [R13.10] Constipation [K59.00] DM type 2 (diabetes mellitus, type 2) ([facility]) [E1* 02/14/2017 Shortness of breath [R06.02] 02/14/2017 Arthritis [M19.90] More... CHF (congestive heart failure) (HCC) [I50.9] BPPV (benign paroxysmal positional vertigo) [H8*INVALID FOR* RLS (restless legs syndrome) [G25.81] INVALID FOR* Iron deficiency concern: RE RLS [E61.1] INVALID FOR* Tubular adenoma [D36.9] INVALID FOR* Incontinence [R32] More... Gastroparesis [K31.84] INVALID FOR* Pre-op testing [Z01.818] INVALID FOR* More... Encounter Status:Closed by DAMI BRAVO on 12/18/17 STRESS REPORT Observed: 12/17/2017 Status: F Source: [facility] 5:06 PM [facility] REPOSITORY [facility] Cardiovascular Services [address] [place] [address] [place] [address] MR#: [id number] Acct: [id number] Name: TAMIA PANDA Jennifer Rep #: [id number] : 1955 62 From: Bart Blas MD Primary Care: Bhupendra Oliveira MD Status: REG CLI Ordering Dr: Sex: F C Stress Test Report Pharmacologic myocardial perfusion stress test. 62-year-old lady with a history of chest discomfort for preop evaluation. Medications Lipitor Cardizem Lopressor Glucophage Cymbalta. Resting EKG demonstrates atrial fibrillation with a rate of 114 bpm resting blood pressure is 118/70 mmHg. 0.4 mg of regadenoson was infused per usual protocol followed by Intravenous saline flush injection continuous EKG monitoring was performed the patient maintained atrial for ablation throughout the recording the maximum heart rate attained was 131 bpm which was 82% of maximum predicted heart rate the maximum workload attained was 1 metabolic equivalent. At rest there were no ST or T-wave changes noted to suggest abnormal flow reserve nonspecific ST-T wave changes only were noted at peak infusion nonspecific ST-T wave changes were noted. Resting blood pressure is 118/70 mmHg. Myocardial perfusion protocol. 11.8 mCi of technetium 99m sestamibi was injected at rest. 0.4 mg of regadenoson was infused per usual protocol. At peak infusion 34.2 mCi of technetium 99m sestamibi was injected. Stress images were obtained stress and rest images were reconstructed and compared in the short axis vertical long and horizontal long axis. Gated images were also obtained. Perfusion SPECT analysis: Review of the stress images demonstrate a normal cardiac silhouette size. The septum and anterior wall and inferior wu appear to have normal perfusion. The mid to basal lateral wall has a moderate size perfusion defect. This is present on the stress images. The resting images demonstrate a fixed defect in the basal lateral wall but the mid lateral wall improves suggesting a moderate amount of ischemia in this area. Gated SPECT analysis: The gated ejection fraction is 59%. Conclusion: Abnormal pharmacologic myocardial perfusion stress test with evidence of mid lateral ischemia. Small basal lateral fixed defect present Preserved ejection fraction 12/17/171705 <Electronically signed by Bart Blas MD> Date Bart Blas MD CC: Bhupendra Oliveira MD; Donal Albright MD Date Dictated: 12/17/171700 Date Transcribed: 12/17/171700 Pipe Recovery Specialist: [place] Signed PROGRESS Observed: 12/16/2017 Status: COMPLETED Source: [facility] 11:12 AM [facility] OTHER CAMPUS REPOSITORY [facility] ID: [id number] Author: Donal Albright Service: (none) Author Type: Physician Type: Progress Notes Filed: 12/18/2017 9:11 AM Note Text: PERTINENT CARDIAC HISTORY ASHD - PCI 2003 Atrial fib - chronic HTN HL DM PARESH - CPAP PE/DVT 1987 - a/c 6 mos CRF CHF - diastolic ADHERENCE TO GUIDELINES BACILIO-I or ARB for HF with prior LVEF<40 (NQF 0081) - N/A ASA or Plavix for ASHD (NQF 0067) - met Beta sudhakar for ASHD with prior DC or prior LVEF<40 (NQF 0070) - N/A Beta sudhakar for HF with prior LVEF<40 (NQF 0083) - N/A BACILIO-I or ARB for ASHD with DM or prior LVEF<40 (NQF 0066) - low BP Statin therapy for ASHD or FHL or DM - met BMI documented and plan if >25 (NQF 0421) - lifestyle recommendation form Tobacco use screening and referral (NQF 0028) - lifestyle recommendation form Recommendation for whole food, plant based diet - lifestyle recommendation form CLINICAL IMPRESSION/PLAN: Tamia Panda has chronic atrial fibrillation. Her rate is adequately controlled. He has a previous history of DVT with pulmonary embolism, which increases her perioperative risk of the same. I recommend holding her Eliquis only the day prior to surgery and resuming as soon as possible afterwards. Early mobilization is very important. She has ongoing chest discomfort which is occasionally occurring at rest. She has not been exercising to test her exercise tolerance and does not routinely exceed a met level of 4 during her daily activities. I recommended that she have a Lexiscan nuclear stress test prior to surgery for better risk assessment. This would be recommended regardless of the issue of surgery. She had some crackles in her lungs during exam, which cleared with deeper inspiration. This is likely related to atelectasis. There is no other evidence for volume overload and her heart failure appears to be well compensated. Stress test will be performed in the near future, hopefully in the time frame to allow her to proceed with surgery as scheduled. Thank you for asking me to see and make recommendations on Tamia Panda. This report is available to you in the shared medical record. Written and verbal health teaching given to patient, patient verbalizes understanding and agrees with treatment plan. DIAGNOSIS FOR VISIT: Preoperative cardiac risk assessment ASHD HISTORY OF PRESENT ILLNESS Tamia Panda is a 62-year-old woman who is seen in consultation at the request of Dr. Cline, in the [facility]. She will be undergoing pyloroplasty for gastroparesis. She is a previous patient of Dr. Baez. She has known ischemic heart disease. She underwent percutaneous intervention in 2003. She has chronic atrial fibrillation. Additional cardiac issues include diastolic heart failure, hypertension and hyperlipidemia. She has had a previous DVT with pulmonary embolism and was on anticoagulation for 6 months. She reports that she has occasional chest discomfort for which she takes nitroglycerin. There was one episode of more severe chest discomfort which was nocturnal and required 2 nitroglycerin. This occurred 2 months ago. She reports chronic peripheral edema. She's had no orthopnea but has exercise related dyspnea with moderate activities. No TIAs, amaurosis, claudication, palpitations, syncope or near-syncope. Her most recent stress test was in 2016. She has not been getting exercise outside the house. ALLERGIES: ALLERGIES Allergen Reactions - Adhesive Tape (Adrienne* Intolerance Surgical tape leaves rash Irritates skin badly and blisters along with medical tape - Cats Other: See Comments Congested and itchy, difficulty breathing - Dogs Other: See Comments Congestion, sneezing, and difficulty breathing - Orphenadrine Unknown - Ciprofloxacin Other: See Comments Red, hot, itchy rash - Keflex [Cephalexin] Hives - Niacin Unknown - Niacin Preparations - Penicillin G - Penicillins Unknown - Reglan [Metoclopram* Other: See Comments Unable to sleep - Xanthines Unknown CURRENT OUTPATIENT MEDICATIONS: regadenoson (LEXISCAN) 0.4 mg/5 mL syrg Inject 5 mL intravenously one time only for 1 dose. Give IV push over 10 seconds and follow with 5 ml of normal saline sucralfate (CARAFATE) 100 mg/mL suspension Take 10 mL by mouth four times daily. COMPOUNDED PRESCRIPTION OCD Titration for portable oxygen concentrator Oxygen Flow Rate between 2-6 liters. To keep oxygen saturation at or above 92%. mupirocin (BACTROBAN) 2 % ointment Apply 1 application to affected area three times daily. promethazine (PHENERGAN) 25 mg tablet Take 1 tablet by mouth every 6 hours as needed. insulin lispro (HUMALOG KWIKPEN INSULIN) 200 unit/mL (3 mL) injection Inject subcutaneously 14 units with breakfast, 22 units with lunch, and 24 units with dinner LYRICA 100 mg capsule TAKE 1 CAPSULE BY MOUTH THREE TIMES A DAY capsaicin (ZOSTRIX-HP) 0.075 % topical cream Apply 1 application to affected area four times daily. ULTICARE PEN NEEDLE 31 gauge x 516 ndle USE DIRECTED. TO INJECT INSULINS VITAMIN C 500 mg tablet TAKE 1 TABLET BY MOUTH DAILY Ferrous Gluconate (FERGON) 324 mg (38 mg iron) tablet TAKE 1 TABLET BY MOUTH DAILY WITH BREAKFAST insulin glargine (LANTUS SOLOSTAR) 100 unit/mL (3 mL) inpn Inject 60 units subcutaneously twice daily STOOL SOFTENER 100 mg capsule TAKE 1 CAPSULE BY MOUTH DAILY CLAUDIA-KYLE 8.6 mg tab TAKE 1 TABLET BY MOUTH TWICE A DAY isosorbide mononitrate ER (IMDUR) 60 mg 24 hr tablet Take 1.5 tablets by mouth once daily. In the morning atorvastatin (LIPITOR) 40 mg tablet TAKE 1 TABLET BY MOUTH DAILY diltiazem CD (CARDIZEM CD, CARTIA XT) 180 mg 24 hr capsule TAKE 1 CAPSULE BY MOUTH EVERY MORNING levothyroxine (SYNTHROID) 100 mcg tablet TAKE 1 TABLET BY MOUTH EVERY MORNING omeprazole (PRILOSEC) 20 mg capsule TAKE 1 CAPSULE BY MOUTH EVERY MORNING ELIQUIS 2.5 mg tab tab(s) TAKE 1 TABLET BY MOUTH TWICE A DAY nitroglycerin sublingual (NITROQUICK) 0.4 mg SL tablet DISSOLVE 1 TAB UNDER THE TONGUE NEEDED FOR CHEST PAIN EVERY 5 MINUTES UP TO 3 TIMES. IF NO RELIEF CALL 911. metoprolol tartrate, short acting, (LOPRESSOR) 50 mg tablet Take 1 tablet by mouth twice daily. glucose 4 gram chewable tablet Take 4 tablets by mouth as needed for Low Blood Sugar. OXYGEN, HOME THERAPY, Inhale 3 L/min as instructed as directed. fluticasone (FLONASE) 50 mcg/actuation nasal spray Use 2 Sprays in each nostril once daily. metFORMIN ER (GLUCOPHAGE XR) 500 mg 24 hr tablet Take 2 tablets by mouth twice daily. DULoxetine (CYMBALTA) 60 mg capsule Take 1 capsule by mouth once daily. aspirin, enteric coated (ASPIRIN, ENTERIC COATED) 81 mg EC tablet Take 1 tablet by mouth every morning. furosemide (LASIX) 40 mg tablet Take 1 tablet by mouth twice daily. albuterol HFA (VENTOLIN HFA) 90 mcg/actuation inhaler Inhale 2 Puffs as instructed every 4 hours as needed for Wheezing/Shortness of Breath. COMPOUNDED PRESCRIPTION Evaluation for diabetic shoes and inserts Dx: E11.65, Z79.4 blood sugar diagnostic (ONETOUCH ULTRA TEST) test strip Use as directed to check blood sugar 4-5 times daily DX: E11.65 Insulin: yes DM: yes lancets (ONE TOUCH DELICA) 33 gauge misc Use as directed to check blood sugar 4-5 times daily DX: E11.65 Insulin: yes DM: yes Incontinence Pad, Liner, Disp pads 1 Device as needed (urinary incontinence). Prevail incontinence pads. Dx: urinary incontinence. Size: small Blood Pressure Cuff - Home Use BLOOD PRESSURE CUFF FOR HOME USE. DX: LABILE BLOOD PRESSURE Blood-Glucose Meter (ONETOUCH ULTRA2) monitoring kit UAD to test blood sugar Alcohol Swabs padm UAD to clean skin before testing blood sugar and injecting insulins. PAST MEDICAL HISTORY Diagnosis Date - Acute chronic obstructive pulmonary disease with respiratory failure ([facility]) - AF (paroxysmal atrial fibrillation) ([facility]) - Anxiety - Arthritis Seeing Dr Elliott - Cervical cancer ([facility]) hysterectomy - CHF (congestive heart failure) ([facility]) - Chronic back pain Seeing Dr. Wallace - Constipation - COPD (chronic obstructive pulmonary disease) ([facility]) - Coronary atherosclerosis of [place] coronary artery Previously seeing Dr. Sosa - DDD (degenerative disc disease), lumbar - DM type 2 (diabetes mellitus, type 2) ([facility]) Seeing Dr. Foley for podiatry - DVT (deep venous thrombosis) ([facility]) Post op INA, BSO. - Dysphagia Seeing Dr. Beaulieu - Emphysema lung ([facility]) - Essential hypertension - Functional dyspepsia - Gastroparesis 2017 mild - GERD without esophagitis - Headache - History of colon polyps 11/28/2016 - Hyperlipidemia - Hypothyroidism - Incontinence Seeing Dr. Chapman - Morbid obesity ([facility]) - Muscle weakness - Nausea - PARESH on CPAP [facility], no longer using as of 10/2017, was not compliant - PE (pulmonary thromboembolism) ([facility]) Post op INA/BSO. - Pneumonia - RLS (restless legs syndrome) - Shortness of breath - Sleep apnea using oxygen currently, not on CPAP - Unsteadiness on feet - Wheezing PAST SURGICAL HISTORY Procedure Laterality Date - CHOLECYSTECTOMY - COLONOS W/REM POLYP SNARE 11/28/2016 Repeat 2019 - COLONOSCOPY Has had multiple in the past with polyps, cannot remember dates - EGD W/O [facility] SPECIMEN W/BX 11/28/2016 - HERNIA REPAIR HX multiple - KNEE SURGERY HX Left x3 for torn cartilage - NASAL SURGERY PROCEDURE sinus - TOTAL ABDOM HYSTERECTOMY 1988 Cervical cancer - TUBAL LIGATION HX - WRIST SURGERY HX Right ganglion cyst removal x2 FAMILY HISTORY Problem Relation Age of Onset - Coronary Artery Disease Mother - Coronary Artery Disease Father - Asthma Brother - Coronary Artery Disease Brother - Diabetes Sister - Hypertension Sister - Diabetes Sister - Heart Sister - Allergies Sister - Asthma Sister - Allergies Sister - Emphysema Sister Early stages - COPD Paternal Uncle Social History Marital status: Spouse name: Years of education: Number of children: Occupational History 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 Social History Main Topics Smoking status: Former Smoker Packs/day: 1.00 Years: 28.00 Types: Cigarettes Start date: 1978 Quit date: 09/22/2005 Smokeless status: Never Used Comment: Father smoked in childhood. 2nd spouse smoked in home. Alcohol use: No Drug use: No Sexual activity: No Social History Narrative 1 year in current home. No basement, 1 parakeet. Room A/C. Electric baseboard heat. REVIEW OF SYSTEMS: General: No chills, fever, weight loss, night sweats. SHEENT: No change in vision or auditory acuity. Respiratory: No productive cough. History of COPD and asthma. Cardiac: As noted above. GI: No melena. Chronic occurred and gastroparesis : No dysuria. Musculoskeletal: Chronic myalgias. Neurologic: No strokes. Psychiatric: No depression. Endocrine: Positive for diabetes. Hematologic: No anemia. PHYSICAL EXAMINATION: S/he is alert and in no distress VITAL SIGNS: BP 98/60 Pulse 68 Wt 219 lb 11.2 oz (99.7kg) SHEENT: Skin is warm and dry. Pupils are round and reactive. No xanthelasmas appreciated. Pharynx is benign. There is no oral cyanosis. Neck: supple. No adenopathy or thyroid enlargement. Chest: There are a few basilar rales which clear with cough. Trachea is midline. Air entry is equal. There is no chest wall tenderness. Cardiac: 1/6 systolic ejection murmur rhythm. S1 and S2 are normal. PMI is nondisplaced. There are no murmurs, rubs or gallops. No click is heard. Carotids are brisk without bruits. JVP is less than 10 cm. Abdomen: Soft and nontender. Obesity precludes adequate examination. There are no pulsatile masses or bruits. No liver enlargement. Bowel sounds are active. : Deferred. Extremities: Trace edema. Pulses are diminished but symmetrical. No clubbing or cyanosis. No femoral bruits. Neurologic: Grossly normal motor and sensory. S/he is alert and oriented x4. Musculoskeletal: No joint deformities. Recent labs were reviewed. CBC is within normal limits. There is mild renal insufficiency. LDL was 76. EKG shows atrial fibrillation with controlled ventricular response. There are diffuse repolarization changes. No significant change is noted. Prior stress test showed a moderate to large inferolateral scar with minimal anterior ischemia. Echocardiogram done in 2013 reported normal LV function. There is no significant valvular disease. Previous records from Dr. Baez were reviewed. Her atrial fibrillation is chronic and she's been maintained on Eliquis and rate control. She has had intermittent chest discomfort and has been treated with long-acting nitrates. Electronically Signed: Donal Albright MD December 16, 2017 11:12 AM CC: Nanda Oliveira MD CNOV Observed: 12/16/2017 Status: COMPLETED Source: [facility] 10:30 AM CLINIC OTHER CAMPUS REPOSITORY Office Visit (AGCARDWST) TAMIA PANDA ([id number]) 1955 F Date Time Provider Department 12/16/17 10:30 AM DONAL ALBRIGHT AGCARDWSCallie During your visit today, we recorded the following information about you: Pulse Blood pressure Weight 68/minute 98/60 99.7 kg Donal Albright MD 12/18/2017 9:11 AM Signed PERTINENT CARDIAC HISTORY ASHD - PCI 2003 Atrial fib - chronic HTN HL DM PARESH - CPAP PE/DVT 1987 - a/c 6 mos CRF CHF - diastolic ADHERENCE TO GUIDELINES BACILIO-I or ARB for HF with prior LVEFANDlt;40 (NQF 0081) - N/A ASA or Plavix for ASHD (NQF 0067) - met Beta sudhakar for ASHD with prior DC or prior LVEFANDlt;40 (NQF 0070) - N/A Beta sudhakar for HF with prior LVEFANDlt;40 (NQF 0083) - N/A BACILIO-I or ARB for ASHD with DM or prior LVEFANDlt;40 (NQF 0066) - low BP Statin therapy for ASHD or FHL or DM - met BMI documented and plan if ANDgt;25 (NQF 0421) - lifestyle recommendation form Tobacco use screening and referral (NQF 0028) - lifestyle recommendation form Recommendation for whole food, plant based diet - lifestyle recommendation form CLINICAL IMPRESSION/PLAN: Tamia Panda has chronic atrial fibrillation. Her rate is adequately controlled. He has a previous history of DVT with pulmonary embolism, which increases her perioperative risk of the same. I recommend holding her Eliquis only the day prior to surgery and resuming as soon as possible afterwards. Early mobilization is very important. She has ongoing chest discomfort which is occasionally occurring at rest. She has not been exercising to test her exercise tolerance and does not routinely exceed a met level of 4 during her daily activities. I recommended that she have a Lexiscan nuclear stress test prior to surgery for better risk assessment. This would be recommended regardless of the issue of surgery. She had some crackles in her lungs during exam, which cleared with deeper inspiration. This is likely related to atelectasis. There is no other evidence for volume overload and her heart failure appears to be well compensated. Stress test will be performed in the near future, hopefully in the time frame to allow her to proceed with surgery as scheduled. Thank you for asking me to see and make recommendations on Tamia Panda. This report is available to you in the shared medical record. Written and verbal health teaching given to patient, patient verbalizes understanding and agrees with treatment plan. DIAGNOSIS FOR VISIT: Preoperative cardiac risk assessment ASHD HISTORY OF PRESENT ILLNESS Tamia Panda is a 62-year-old woman who is seen in consultation at the request of Dr. Cline, in the [facility]. She will be undergoing pyloroplasty for gastroparesis. She is a previous patient of Dr. Baez. She has known ischemic heart disease. She underwent percutaneous intervention in 2003. She has chronic atrial fibrillation. Additional cardiac issues include diastolic heart failure, hypertension and hyperlipidemia. She has had a previous DVT with pulmonary embolism and was on anticoagulation for 6 months. She reports that she has occasional chest discomfort for which she takes nitroglycerin. There was one episode of more severe chest discomfort which was nocturnal and required 2 nitroglycerin. This occurred 2 months ago. She reports chronic peripheral edema. She's had no orthopnea but has exercise related dyspnea with moderate activities. No TIAs, amaurosis, claudication, palpitations, syncope or near-syncope. Her most recent stress test was in 2016. She has not been getting exercise outside the house. ALLERGIES: ALLERGIES Allergen Reactions - Adhesive Tape (Adrienne* Intolerance Surgical tape leaves rash Irritates skin badly and blisters along with medical tape - Cats Other: See Comments Congested and itchy, difficulty breathing - Dogs Other: See Comments Congestion, sneezing, and difficulty breathing - Orphenadrine Unknown - Ciprofloxacin Other: See Comments Red, hot, itchy rash - Keflex [Cephalexin] Hives - Niacin Unknown - Niacin Preparations - Penicillin G - Penicillins Unknown - Reglan [Metoclopram* Other: See Comments Unable to sleep - Xanthines Unknown CURRENT OUTPATIENT MEDICATIONS: regadenoson (LEXISCAN) 0.4 mg/5 mL syrg Inject 5 mL intravenously one time only for 1 dose. Give IV push over 10 seconds and follow with 5 ml of normal saline sucralfate (CARAFATE) 100 mg/mL suspension Take 10 mL by mouth four times daily. COMPOUNDED PRESCRIPTION OCD Titration for portable oxygen concentrator Oxygen Flow Rate between 2-6 liters. To keep oxygen saturation at or above 92%. mupirocin (BACTROBAN) 2 % ointment Apply 1 application to affected area three times daily. promethazine (PHENERGAN) 25 mg tablet Take 1 tablet by mouth every 6 hours as needed. insulin lispro (HUMALOG KWIKPEN INSULIN) 200 unit/mL (3 mL) injection Inject subcutaneously 14 units with breakfast, 22 units with lunch, and 24 units with dinner LYRICA 100 mg capsule TAKE 1 CAPSULE BY MOUTH THREE TIMES A DAY capsaicin (ZOSTRIX-HP) 0.075 % topical cream Apply 1 application to affected area four times daily. ULTICARE PEN NEEDLE 31 gauge x 5/16ANDquot; ndle USE DIRECTED. TO INJECT INSULINS VITAMIN C 500 mg tablet TAKE 1 TABLET BY MOUTH DAILY Ferrous Gluconate (FERGON) 324 mg (38 mg iron) tablet TAKE 1 TABLET BY MOUTH DAILY WITH BREAKFAST insulin glargine (LANTUS SOLOSTAR) 100 unit/mL (3 mL) inpn Inject 60 units subcutaneously twice daily STOOL SOFTENER 100 mg capsule TAKE 1 CAPSULE BY MOUTH DAILY CLAUDIA-KYLE 8.6 mg tab TAKE 1 TABLET BY MOUTH TWICE A DAY isosorbide mononitrate ER (IMDUR) 60 mg 24 hr tablet Take 1.5 tablets by mouth once daily. In the morning atorvastatin (LIPITOR) 40 mg tablet TAKE 1 TABLET BY MOUTH DAILY diltiazem CD (CARDIZEM CD, CARTIA XT) 180 mg 24 hr capsule TAKE 1 CAPSULE BY MOUTH EVERY MORNING levothyroxine (SYNTHROID) 100 mcg tablet TAKE 1 TABLET BY MOUTH EVERY MORNING omeprazole (PRILOSEC) 20 mg capsule TAKE 1 CAPSULE BY MOUTH EVERY MORNING ELIQUIS 2.5 mg tab tab(s) TAKE 1 TABLET BY MOUTH TWICE A DAY nitroglycerin sublingual (NITROQUICK) 0.4 mg SL tablet DISSOLVE 1 TAB UNDER THE TONGUE NEEDED FOR CHEST PAIN EVERY 5 MINUTES UP TO 3 TIMES. IF NO RELIEF CALL 911. metoprolol tartrate, short acting, (LOPRESSOR) 50 mg tablet Take 1 tablet by mouth twice daily. glucose 4 gram chewable tablet Take 4 tablets by mouth as needed for Low Blood Sugar. OXYGEN, HOME THERAPY, Inhale 3 L/min as instructed as directed. fluticasone (FLONASE) 50 mcg/actuation nasal spray Use 2 Sprays in each nostril once daily. metFORMIN ER (GLUCOPHAGE XR) 500 mg 24 hr tablet Take 2 tablets by mouth twice daily. DULoxetine (CYMBALTA) 60 mg capsule Take 1 capsule by mouth once daily. aspirin, enteric coated (ASPIRIN, ENTERIC COATED) 81 mg EC tablet Take 1 tablet by mouth every morning. furosemide (LASIX) 40 mg tablet Take 1 tablet by mouth twice daily. albuterol HFA (VENTOLIN HFA) 90 mcg/actuation inhaler Inhale 2 Puffs as instructed every 4 hours as needed for Wheezing/Shortness of Breath. COMPOUNDED PRESCRIPTION Evaluation for diabetic shoes and inserts Dx: E11.65, Z79.4 blood sugar diagnostic (ONETOUCH ULTRA TEST) test strip Use as directed to check blood sugar 4-5 times daily DX: E11.65 Insulin: yes DM: yes lancets (ONE TOUCH DELICA) 33 gauge misc Use as directed to check blood sugar 4-5 times daily DX: E11.65 Insulin: yes DM: yes Incontinence Pad, Liner, Disp pads 1 Device as needed (urinary incontinence). Prevail incontinence pads. Dx: urinary incontinence. Size: small Blood Pressure Cuff - Home Use BLOOD PRESSURE CUFF FOR HOME USE. DX: LABILE BLOOD PRESSURE Blood-Glucose Meter (ONETOUCH ULTRA2) monitoring kit UAD to test blood sugar Alcohol Swabs padm UAD to clean skin before testing blood sugar and injecting insulins. PAST MEDICAL HISTORY Diagnosis Date - Acute chronic obstructive pulmonary disease with respiratory failure ([facility]) - AF (paroxysmal atrial fibrillation) ([facility]) - Anxiety - Arthritis Seeing Dr Elliott - Cervical cancer ([facility]) hysterectomy - CHF (congestive heart failure) ([facility]) - Chronic back pain Seeing Dr. Wallace - Constipation - COPD (chronic obstructive pulmonary disease) ([facility]) - Coronary atherosclerosis of [place] coronary artery Previously seeing Dr. Sosa - DDD (degenerative disc disease), lumbar - DM type 2 (diabetes mellitus, type 2) ([facility]) Seeing Dr. Foley for podiatry - DVT (deep venous thrombosis) ([facility]) Post op INA, BSO. - Dysphagia Seeing Dr. Beaulieu - Emphysema lung ([facility]) - Essential hypertension - Functional dyspepsia - Gastroparesis 2017 mild - GERD without esophagitis - Headache - History of colon polyps 11/28/2016 - Hyperlipidemia - Hypothyroidism - Incontinence Seeing Dr. Chapman - Morbid obesity ([facility]) - Muscle weakness - Nausea - PARESH on CPAP [facility], no longer using as of 10/2017, was not compliant - PE (pulmonary thromboembolism) ([facility]) Post op INA/BSO. - Pneumonia - RLS (restless legs syndrome) - Shortness of breath - Sleep apnea using oxygen currently, not on CPAP - Unsteadiness on feet - Wheezing PAST SURGICAL HISTORY Procedure Laterality Date - CHOLECYSTECTOMY - COLONOS W/REM POLYP SNARE 11/28/2016 Repeat 2019 - COLONOSCOPY Has had multiple in the past with polyps, cannot remember dates - EGD W/O [facility] SPECIMEN W/BX 11/28/2016 - HERNIA REPAIR HX multiple - KNEE SURGERY HX Left x3 for torn cartilage - NASAL SURGERY PROCEDURE sinus - TOTAL ABDOM HYSTERECTOMY 1987 Cervical cancer - TUBAL LIGATION HX - WRIST SURGERY HX Right ganglion cyst removal x2 FAMILY HISTORY Problem Relation Age of Onset - Coronary Artery Disease Mother - Coronary Artery Disease Father - Asthma Brother - Coronary Artery Disease Brother - Diabetes Sister - Hypertension Sister - Diabetes Sister - Heart Sister - Allergies Sister - Asthma Sister - Allergies Sister - Emphysema Sister ANDquot;Early stagesANDquot; - COPD Paternal Uncle Social History Marital status: Spouse name: Years of education: Number of children: Occupational History 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 Social History Main Topics Smoking status: Former Smoker Packs/day: 1.00 Years: 28.00 Types: Cigarettes Start date: 1978 Quit date: 09/22/2005 Smokeless status: Never Used Comment: Father smoked in childhood. 2nd spouse smoked in home. Alcohol use: No Drug use: No Sexual activity: No Social History Narrative 1 year in current home. No basement, 1 parakeet. Room A/C. Electric baseboard heat. REVIEW OF SYSTEMS: General: No chills, fever, weight loss, night sweats. SHEENT: No change in vision or auditory acuity. Respiratory: No productive cough. History of COPD and asthma. Cardiac: As noted above. GI: No melena. Chronic occurred and gastroparesis : No dysuria. Musculoskeletal: Chronic myalgias. Neurologic: No strokes. Psychiatric: No depression. Endocrine: Positive for diabetes. Hematologic: No anemia. PHYSICAL EXAMINATION: S/he is alert and in no distress VITAL SIGNS: BP 98/60 Pulse 68 Wt 219 lb 11.2 oz (99.7kg) SHEENT: Skin is warm and dry. Pupils are round and reactive. No xanthelasmas appreciated. Pharynx is benign. There is no oral cyanosis. Neck: supple. No adenopathy or thyroid enlargement. Chest: There are a few basilar rales which clear with cough. Trachea is midline. Air entry is equal. There is no chest wall tenderness. Cardiac: 1/6 systolic ejection murmur rhythm. S1 and S2 are normal. PMI is nondisplaced. There are no murmurs, rubs or gallops. No click is heard. Carotids are brisk without bruits. JVP is less than 10 cm. Abdomen: Soft and nontender. Obesity precludes adequate examination. There are no pulsatile masses or bruits. No liver enlargement. Bowel sounds are active. : Deferred. Extremities: Trace edema. Pulses are diminished but symmetrical. No clubbing or cyanosis. No femoral bruits. Neurologic: Grossly normal motor and sensory. S/he is alert and oriented x4. Musculoskeletal: No joint deformities. Recent labs were reviewed. CBC is within normal limits. There is mild renal insufficiency. LDL was 76. EKG shows atrial fibrillation with controlled ventricular response. There are diffuse repolarization changes. No significant change is noted. Prior stress test showed a moderate to large inferolateral scar with minimal anterior ischemia. Echocardiogram done in 2013 reported normal LV function. There is no significant valvular disease. Previous records from Dr. Baez were reviewed. Her atrial fibrillation is chronic and she's been maintained on Eliquis and rate control. She has had intermittent chest discomfort and has been treated with long- acting nitrates. Electronically Signed: Donal Albright MD December 16, 2017 11:12 AM CC: MD Donal Floyd MD 12/16/2017 11:13 AM Signed LIFESTYLE CHANGE A healthy lifestyle is the most important component of your overall treatment plan. Please give serious thought to the following areas and commit to making extermination supervisor changes. EAT A WHOLE FOOD, PLANT BASED DIET The nutrition your body gets is more important than the medicine you take. What matters most is the overall way you eat. We encourage you to minimize the use of animal products (which include dairy and all meats except fatty fish) and use whole, unprocessed plant foods to provide your protein, vitamins and other nutrients. We have a lot of information to share with you on this topic. We also hold Shared Medical Appointments, where you can come visit with Dr. Albright in the company of other patients and spend over an hour talking about the challenges of changing the way you eat. This is not a ANDquot;dietANDquot;. It is a way of life that you will keep with you. EXERCISE REGULARLY It is not important to spend hours in the gym, lifting weights and perspiring heavily. A total of 2-3 hours per week of aerobic (causing you to be moderately short of breath) exercise is sufficient to improve your health. Talk to us before you begin a new exercise program, if you have heart disease or experience shortness of breath or chest pain. REDUCE STRESS Chronic emotional and physical stress leads to disease. Ways of reducing stress include meditation, visualization, prayer, yoga and other forms of relaxation therapy. Consistency is the meza. Find a technique that works for you and do it every day. CULTIVATE RELATIONSHIPS Loneliness and isolation have a major negative impact on health. Seek out others who can love, care for and nurture you. Avoid hurtful relationships. MAINTAIN IDEAL BODY WEIGHT The best way to do this is to do all the things above. Our bodies naturally find the right weight if we keep moving and feed ourselves the right food. If your BMI is greater than 25, we strongly recommend a referral to a weight management program. Please speak to us or your family physician about available programs. AVOID NICOTINE IN ALL FORMS This includes all tobacco products, whether chewed, smoked, vaped, or rubbed on the skin. Smoking cessation programs, which can make use of tobacco substitutes, medications to suppress cravings and behavior management, are available. Please contact your family physician about programs in your area. Referring Provider: NANDA OLIVEIRA) [[id number]] Allergies As of Date: 12/16/2017 Noted Allergy Reaction ADHESIVE TAPE (ROSINS) 04/04/2015 5 - Intolerance Comments: Surgical tape leaves rash Irritates skin badly and blisters along with medical tape CATS 04/10/2016 14 - Other: See Comments Comments: Congested and itchy, difficulty breathing DOGS 04/10/2016 14 - Other: See Comments Comments: Congestion, sneezing, and difficulty breathing ORPHENADRINE 04/10/2016 16 - Unknown CIPROFLOXACIN 12/11/2011 14 - Other: See Comments Comments: Red, hot, itchy rash KEFLEX (CEPHALEXIN) 07/10/2016 4 - Hives NIACIN 04/04/2015 16 - Unknown NIACIN PREPARATIONS 10/18/2004 PENICILLIN G 10/18/2004 PENICILLINS 04/04/2015 16 - Unknown REGLAN (METOCLOPRAMIDE HCL) 03/04/2017 14 - Other: See Comments Comments: Unable to sleep XANTHINES 10/18/2004 16 - Unknown Date Reviewed: 12/16/2017 Reviewed by: Florence Meade - Fully Assessed Reason for Visit: Consult [502] Primary Visit Diagnosis:Preop cardiovascular exam [Z01.810] Other Visit Diagnoses:ASHD (arteriosclerotic heart disease) [I25.10] Hypertension, essential [I10] Order(s):NM CARDIAC PERF STRESS/PHARM [[id number]] Order #: [id number] FUTURE [] regadenoson (LEXISCAN) 0.4 mg/5 mL syrgInject 5 mL intravenously one time only for 1 dose. Give IV push over 10 seconds and follow with 5 ml of normal salineDisp: 5 mLRfl: 0 IV START - SPECIFY [[id number]] Order #: [id number]: 1 IV DISCONTINUE [[id number]] Order #: [id number]: 1 Prescriptions as of 12/16/2017 Sig: REGADENOSON 0.4 MG/5 ML INTRA* Inject 5 mL intravenously one* SUCRALFATE 100 MG/ML ORAL GISELLE* Take 10 mL by mouth four time* COMPOUNDED PRESCRIPTION OCD Titration for portable ox* MUPIROCIN 2 % TOPICAL OINTMENT Apply 1 application to affect* PROMETHAZINE 25 MG TABLET Take 1 tablet by mouth every * INSULIN LISPRO (U-200) 200 UN* Inject subcutaneously 14 unit* Patient taking differently: 14 Units. Inject subcutaneous* LYRICA 100 MG CAPSULE TAKE 1 CAPSULE BY MOUTH THREE* CAPSAICIN 0.075 % TOPICAL CRE* Apply 1 application to affect* ULTICARE PEN NEEDLE 31 GAUGE * USE DIRECTED. TO INJECT IN* VITAMIN C 500 MG TABLET TAKE 1 TABLET BY MOUTH DAILY FERROUS GLUCONATE 324 MG (38 * TAKE 1 TABLET BY MOUTH DAILY * INSULIN GLARGINE (U-100) 100 * Inject 60 units subcutaneousl* STOOL SOFTENER 100 MG CAPSULE TAKE 1 CAPSULE BY MOUTH DAILY CLAUDIA-KYLE 8.6 MG TABLET TAKE 1 TABLET BY MOUTH TWICE * ISOSORBIDE MONONITRATE ER 60 * Take 1.5 tablets by mouth onc* ATORVASTATIN 40 MG TABLET TAKE 1 TABLET BY MOUTH DAILY DILTIAZEM SR 180 MG 24 HR CAP TAKE 1 CAPSULE BY MOUTH EVERY* LEVOTHYROXINE 100 MCG TABLET TAKE 1 TABLET BY MOUTH EVERY * OMEPRAZOLE 20 MG CAPSULE,MARIA EUGENIA* TAKE 1 CAPSULE BY MOUTH EVERY* ELIQUIS 2.5 MG TABLET TAKE 1 TABLET BY MOUTH TWICE * NITROGLYCERIN 0.4 MG SUBLINGU* DISSOLVE 1 TAB UNDER THE TONG* METOPROLOL TARTRATE 50 MG TAB* Take 1 tablet by mouth twice * GLUCOSE 4 GRAM CHEWABLE TABLET Take 4 tablets by mouth as ne* OXYGEN (HOME THERAPY) Inhale 3 L/min as instructed * FLUTICASONE 50 MCG/ACTUATION * Use 2 Sprays in each nostril * METFORMIN ER 500 MG TABLET,EX* Take 2 tablets by mouth twice* DULOXETINE 60 MG CAPSULE,MARIA EUGENIA* Take 1 capsule by mouth once * ASPIRIN 81 MG TABLET,DELAYED * Take 1 tablet by mouth every * FUROSEMIDE 40 MG TABLET Take 1 tablet by mouth twice * ALBUTEROL SULFATE HFA 90 MCG/* Inhale 2 Puffs as instructed * COMPOUNDED PRESCRIPTION Evaluation for diabetic shoes* BLOOD SUGAR DIAGNOSTIC STRIPS Use as directed to check bloo* LANCETS 33 GAUGE Use as directed to check bloo* INCONTINENCE PAD, LINER, DISP* 1 Device as needed (urinary i* COMPOUNDED PRESCRIPTION BLOOD PRESSURE CUFF FOR HOME * BLOOD-GLUCOSE METER KIT UAD to test blood sugar ALCOHOL SWABS UAD to clean skin before test* Problem List As Of Date 12/16/2017 Noted Resolved SUBJECTIVE TINNITUS [H93.19] INVALID FOR* Obstructive sleep apnea [G47.33] INVALID FOR* Hyperlipidemia [E78.5] INVALID FOR* Coronary disease [I25.10] INVALID FOR* Diabetes mellitus, type II ([facility]) [E11.9] INVALID FOR* Morbid obesity ([facility]) [E66.01] Hypothyroidism [E03.9] Anxiety [F41.9] Sleep apnea [G47.30] 02/14/2017 Essential hypertension [I10] Coronary artery disease of [place] artery of stoney* AF (paroxysmal atrial fibrillation) ([facility]) [I48.* COPD (chronic obstructive pulmonary disease) (H* GERD without esophagitis [K21.9] Dysphagia [R13.10] Constipation [K59.00] DM type 2 (diabetes mellitus, type 2) ([facility]) [E1* 02/14/2017 Shortness of breath [R06.02] 02/14/2017 Arthritis [M19.90] More... CHF (congestive heart failure) ([facility]) [I50.9] BPPV (benign paroxysmal positional vertigo) [H8*INVALID FOR* RLS (restless legs syndrome) [G25.81] INVALID FOR* Iron deficiency concern: RE RLS [E61.1] INVALID FOR* Tubular adenoma [D36.9] INVALID FOR* Incontinence [R32] More... Gastroparesis [K31.84] INVALID FOR* Pre-op testing [Z01.818] INVALID FOR* More... Other instructions from your clinician: LIFESTYLE CHANGE A healthy lifestyle is the most important component of your overall treatment plan. Please give serious thought to the following areas and commit to making intermediate changes. EAT A WHOLE FOOD, PLANT BASED DIET The nutrition your body gets is more important than the medicine you take. What matters most is the overall way you eat. We encourage you to minimize the use of animal products (which include dairy and all meats except fatty fish) and use whole, unprocessed plant foods to provide your protein, vitamins and other nutrients. We have a lot of information to share with you on this topic. We also hold Shared Medical Appointments, where you can come visit with Dr. Albright in the company of other patients and spend over an hour talking about the challenges of changing the way you eat. This is not a diet. It is a way of life that you will keep with you. EXERCISE REGULARLY It is not important to spend hours in the gym, lifting weights and perspiring heavily. A total of 2-3 hours per week of aerobic (causing you to be moderately short of breath) exercise is sufficient to improve your health. Talk to us before you begin a new exercise program, if you have heart disease or experience shortness of breath or chest pain. REDUCE STRESS Chronic emotional and physical stress leads to disease. Ways of reducing stress include meditation, visualization, prayer, yoga and other forms of relaxation therapy. Consistency is the meza. Find a technique that works for you and do it every day. CULTIVATE RELATIONSHIPS Loneliness and isolation have a major negative impact on health. Seek out others who can love, care for and nurture you. Avoid hurtful relationships. MAINTAIN IDEAL BODY WEIGHT The best way to do this is to do all the things above. Our bodies naturally find the right weight if we keep moving and feed ourselves the right food. If your BMI is greater than 25, we strongly recommend a referral to a weight management program. Please speak to us or your family physician about available programs. AVOID NICOTINE IN ALL FORMS This includes all tobacco products, whether chewed, smoked, vaped, or rubbed on the skin. Smoking cessation programs, which can make use of tobacco substitutes, medications to suppress cravings and behavior management, are available. Please contact your family physician about programs in your area. Prescriptions ordered this encounter Disp Refills Start End REGADENOSON 0.4 MG/5 ML INTRAVENOUS * 5 mL 0 12/16/2017 12/16/2017 Class: In Office Route: INTRAVENOUS Sig: Inject 5 mL intravenously one time only for 1 dose. Give IV push over 10 seconds and follow with 5 ml of normal saline Follow-up and Disposition History Recorded Encounter Status:Closed by DONAL ALBRIGHT MD on 12/18/17 PROGRESS Observed: 12/15/2017 Status: COMPLETED Source: [place] 3:40 PM [facility] [place] REPOSITORY O ID: [id number] Author: Nafisa Allen) NINA Subramanian Service: (none) Author Type: Registered Nurse Type: Progress Notes Filed: 12/15/2017 3:41 PM Note Text: . PROGRESS Observed: 12/15/2017 Status: COMPLETED Source: [place] 3:13 PM [facility] REPOSITORY HNO ID: [id number] Author: Tejal Armendariz RN Service: (none) Author Type: (none) Type: Progress Notes Filed: 12/15/2017 3:50 PM Note Text: ANESTHESIA PRE-OPERATIVE ASSESSMENT (PACE) SERVICE DATE: 12/15/2017 SERVICE TIME: 151 ASSESSMENT AND PLAN: Tamia Panda is a 62 year old female scheduled for per oral endoscopic pyloromyotomy per Informed Consent in MAIN on 12-19-17. PMH: gastroparesis - on carafate, prilosec, phenergan (takes pills with applesauce) cad- stent 2003, chf, chest pain at rest and with exertion (relieved with nitro) last episode few months ago awoke her from sleep, radiating down her arm- took two nitro tabs to see cards pre-op 12-16-17 ordered by impact on lopressor, cartia, imdur, lasix scanned stress test 2015- lexiscan nuclear stress test with moderate to large inferolateral scar with minimal anterior ischemia, ef 76 with normal wall motion scanned echo 2013- ef 65- 70% mild lvh, rvsp 10mmHG atrial fibrillation/flutter on eliquis to hold 3 days prior per impact htn copd on 3 L oxygen 24/7, albuterol as needed PARESH no cpap PE DM on insulin and oral (fbs 120-160) A1C 6.1 (lantus 60 units BID, humalog kwik pin with meals, metformin 1000mg BID) severe neuropathy on lyrica ?tia 3 years ago (memory loss, difficulty finding words) tremor leftthand anxiety hypothyroid hpl [facility]: 4 FC: 3 METS: Walk indoors, such as around the house (1.75 METs) Patient WILL accept blood products. BLOOD WORK/PRODUCTS ORDERED: Type and Screen , Con ABO HISTORY OF CHRONIC PAIN: PAIN MANAGEMENT OPTIONS: Routine/PRN IV and Final pain management plan will be discussed on the day of surgery. ANESTHETIC OPTIONS: General and Final anesthesia management options will be discussed on day of surgery. PRE-OP PLAN ORDERED: Diabetes orders Patient Instructed: ? Nothing to eat or drink after midnight. ? Patient instructed to take the following medications with a sip of water: asa, cartia, imdur, lopressor prilosec, albuterol Vital Signs: BP 106/60 Pulse 70 Ht 157.5 cm (5' 2) Wt 100.2 kg (221 lb) SpO2 95% BMI 40.42 kg/m2 BMI 40.42 kg/(m2) Vital signs completed by: IMPACT Weight acquired: per HANDP. Height acquired: per HANDP Airway Exam: MOUTH OPENING/TMJ: Full jaw ROM MICROGNATHIA/OVERBITE: No MALLAMPATI SCORE is CLASS III UPPER LIP BITE TEST: Unable to perform DENTITION: Edentulous/dentures THYROMENTAL DIST: Less than 3 fingerbreadths SHORT NECK: Yes - short/thick secondary to obesity. kyphosis NECK CIRCUMFERENCE >40 cm: Neck Circumference measured at 46 cm NECK FLEX: Full ROM NECK EXTENSION: Full ROM AIRWAY HISTORY: No abnormal airway history ARKS AIRWAY DETAIL: N/A DATA: EKG READING: Unconfirmed - atrial fibrillation with inferior mi OTHER TESTS scanned stress test 2015- lexiscan nuclear stress test with moderate to large inferolateral scar with minimal anterior ischemia, ef 76 with normal wall motion scanned echo 2013- ef 65- 70% mild lvh, rvsp 10mmHG PFT: Date: 2016 , Results: IMPRESSION: The TLC, FRC and RV are reduced indicating restriction. The diffusing capacity is moderately reduced. The presence of a reduced DLCO that normalizes when corrected for volume is consistent with a nonparenchymal disorder but does not rule out parenchymal or pulmonary vascular disease. The diffusing capacity corrected for volume is normal. Electronically Signed On 01-17-2017 8:09:02 EDT by Gayathri Jacome Chest X-ray: sep 2017 IMPRESSION: There is some flattening of hemidiaphragms No acute infiltrate or effusion Pipe Recovery Specialist: ALLEGRA ? Transcribe Date/Time: Oct 14 2017 ?6:59P Dictated by : KOREY NOWAK MD Lab Value Units Date High Low HB 12.8 g/dL 12/15/2017 15.5 11.5 HCT 42.5 % 12/15/2017 46.0 36.0 WBC 6.60 k/uL 12/15/2017 11.00 3.70 PLT 246 k/uL 12/15/2017 400 150 NA 145 mmol/L 12/15/2017 144 136 K 4.6 mmol/L 12/15/2017 5.1 3.7 GLUC 110 mg/dL 12/15/2017 99 74 BUN 16 mg/dL 12/15/2017 21 7 CREAT 1.11 mg/dL 12/15/2017 0.96 0.58 PTSEC 10.4 sec 12/15/2017 13.0 9.7 INR 1.0 no uni* 12/15/2017 1.3 0.9 APTT 25.9 sec 12/15/2017 32.4 23.0 ALT 11 U/L 12/15/2017 38 7 AST 14 U/L 12/15/2017 35 13 TBILI 0.5 mg/dL 12/15/2017 1.3 0.2 TSH No results within date range. Lab Value Units Date High Low HCGQT No results within date range. UHCG No results within date range. HCG, BODY* No results within date range. ABORHD A POSI* no uni* 12/15/2017 ABSCREEN NEG no uni* 12/15/2017 HBA1C: Hemoglobin A1C (%) Date Value 12/11/2017 6.3 07/29/2017 6.1 ) Patient accompanied by self Case Discussed with Dr Rabago OPTIMIZATION STATUS: Patient optimization pending Labs IMPACT Cardiac evaluation IMPACT SIGNATURE: Tejal Armendariz RN PATIENT NAME: Tamia Panda DATE: December 15, 2017 TIME: 3:13 PM PAGER/CONTACT #: CNOV Observed: 12/15/2017 Status: COMPLETED Source: [place] 2:30 PM [facility] REPOSITORY Office Visit (PSSCMN) TAMIA PANDA ([id number]) 1955 F Date Time Provider Department 12/15/17 2:30 PM [facility] During your visit today, we recorded the following information about you: Pulse Blood pressure Weight Height 70/minute 106/60 100.2 kg 1.575 m Tejal Armendariz RN 12/15/2017 3:50 PM Signed ANESTHESIA PRE-OPERATIVE ASSESSMENT (PACE) SERVICE DATE: 12/15/2017 SERVICE TIME: 1513 ASSESSMENT ANDamp; PLAN: Tamia Panda is a 62 year old female scheduled for per oral endoscopic pyloromyotomy per Informed Consent in MAIN on 12-19-17. PMH: gastroparesis - on carafate, prilosec, phenergan (takes pills with applesauce) cad- stent 2003, chf, chest pain at rest and with exertion (relieved with nitro) last episode few months ago awoke her from sleep, radiating down her arm- took two nitro tabs to see cards pre-op 12-16-17 ordered by impact on lopressor, cartia, imdur, lasix scanned stress test 2015- lexiscan nuclear stress test with moderate to large inferolateral scar with minimal anterior ischemia, ef 76 with normal wall motion scanned echo 2013- ef 65- 70% mild lvh, rvsp 10mmHG atrial fibrillation/flutter on eliquis to hold 3 days prior per impact htn copd on 3 L oxygen 14/04, albuterol as needed PARESH no cpap PE DM on insulin and oral (fbs 120-160) A1C 6.1 (lantus 60 units BID, humalog kwik pin with meals, metformin 1000mg BID) severe neuropathy on lyrica ?tia 3 years ago (memory loss, difficulty finding words) tremor leftthand anxiety hypothyroid hpl [facility]: 4 FC: 3 METS: Walk indoors, such as around the house (1.75 METs) Patient WILL accept blood products. BLOOD WORK/PRODUCTS ORDERED: Type and Screen , Con ABO HISTORY OF CHRONIC PAIN: PAIN MANAGEMENT OPTIONS: Routine/PRN IV and Final pain management plan will be discussed on the day of surgery. ANESTHETIC OPTIONS: General and Final anesthesia management options will be discussed on day of surgery. PRE-OP PLAN ORDERED: Diabetes orders Patient Instructed: ? Nothing to eat or drink after midnight. ? Patient instructed to take the following medications with a sip of water: asa, cartia, imdur, lopressor prilosec, albuterol Vital Signs: BP 106/60 Pulse 70 Ht 157.5 cm (5' 2ANDquot;) Wt 100.2 kg (221 lb) SpO2 95% BMI 40.42 kg/m2 BMI 40.42 kg/(m2) Vital signs completed by: NILS Weight acquired: per HANDamp;P. Height acquired: per HANDamp;P Airway Exam: MOUTH OPENING/TMJ: Full jaw ROM MICROGNATHIA/OVERBITE: No MALLAMPATI SCORE is CLASS III UPPER LIP BITE TEST: Unable to perform DENTITION: Edentulous/dentures THYROMENTAL DIST: Less than 3 fingerbreadths SHORT NECK: Yes - short/thick secondary to obesity. kyphosis NECK CIRCUMFERENCE ANDgt;40 cm: Neck Circumference measured at 46 cm NECK FLEX: Full ROM NECK EXTENSION: Full ROM AIRWAY HISTORY: No abnormal airway history ARKS AIRWAY DETAIL: N/A DATA: EKG READING: Unconfirmed - atrial fibrillation with inferior mi OTHER TESTS scanned stress test 2015- lexiscan nuclear stress test with moderate to large inferolateral scar with minimal anterior ischemia, ef 76 with normal wall motion scanned echo 2013- ef 65- 70% mild lvh, rvsp 10mmHG PFT: Date: 2016 , Results: IMPRESSION: The TLC, FRC and RV are reduced indicating restriction. The diffusing capacity is moderately reduced. The presence of a reduced DLCO that normalizes when corrected for volume is consistent with a nonparenchymal disorder but does not rule out parenchymal or pulmonary vascular disease. The diffusing capacity corrected for volume is normal. Electronically Signed On 01-17-2017 8:09:02 EDT by Gayathri Jacome Chest X-ray: sep 2017 IMPRESSION: There is some flattening of hemidiaphragms No acute infiltrate or effusion Pipe Recovery Specialist: ALLEGRA ? Transcribe Date/Time: Oct 14 2017 ?6:59P Dictated by : KOREY NOWAK MD Lab Value Units Date High Low HB 12.8 g/dL 12/15/2017 15.5 11.5 HCT 42.5 % 12/15/2017 46.0 36.0 WBC 6.60 k/uL 12/15/2017 11.00 3.70 PLT 246 k/uL 12/15/2017 400 150 NA 145 mmol/L 12/15/2017 144 136 K 4.6 mmol/L 12/15/2017 5.1 3.7 GLUC 110 mg/dL 12/15/2017 99 74 BUN 16 mg/dL 12/15/2017 21 7 CREAT 1.11 mg/dL 12/15/2017 0.96 0.58 PTSEC 10.4 sec 12/15/2017 13.0 9.7 INR 1.0 no uni* 12/15/2017 1.3 0.9 APTT 25.9 sec 12/15/2017 32.4 23.0 ALT 11 U/L 12/15/2017 38 7 AST 14 U/L 12/15/2017 35 13 TBILI 0.5 mg/dL 12/15/2017 1.3 0.2 TSH No results within date range. Lab Value Units Date High Low HCGQT No results within date range. UHCG No results within date range. HCG, BODY* No results within date range. ABORHD A POSI* no uni* 12/15/2017 ABSCREEN NEG no uni* 12/15/2017 HBA1C: Hemoglobin A1C (%) Date Value 12/11/2017 6.3 07/29/2017 6.1 ) Patient accompanied by self Case Discussed with Dr Rabago OPTIMIZATION STATUS: Patient optimization pending Labs IMPACT Cardiac evaluation IMPACT SIGNATURE: Tejal Armendariz RN PATIENT NAME: Tamia Panda DATE: December 15, 2017 TIME: 3:13 PM PAGER/CONTACT #: Referring Provider: JEFFERSON CONNOLLY [[id number]] Allergies As of Date: 12/15/2017 Noted Allergy Reaction ADHESIVE TAPE (ROSINS) 04/04/2015 5 - Intolerance Comments: Surgical tape leaves rash Irritates skin badly and blisters along with medical tape CATS 04/10/2016 14 - Other: See Comments Comments: Congested and itchy, difficulty breathing DOGS 04/10/2016 14 - Other: See Comments Comments: Congestion, sneezing, and difficulty breathing ORPHENADRINE 04/10/2016 16 - Unknown CIPROFLOXACIN 12/11/2011 14 - Other: See Comments Comments: Red, hot, itchy rash KEFLEX (CEPHALEXIN) 07/10/2016 4 - Hives NIACIN 04/04/2015 16 - Unknown NIACIN PREPARATIONS 10/18/2004 PENICILLIN G 10/18/2004 PENICILLINS 04/04/2015 16 - Unknown REGLAN (METOCLOPRAMIDE HCL) 03/04/2017 14 - Other: See Comments Comments: Unable to sleep XANTHINES 10/18/2004 16 - Unknown Date Reviewed: 12/15/2017 Reviewed by: Tejal Armendariz RN - Fully Assessed Primary Visit Diagnosis:Pre-op evaluation [Z01.818] Prescriptions as of 12/15/2017 Sig: SUCRALFATE 100 MG/ML ORAL GISELLE* Take 10 mL by mouth four time* COMPOUNDED PRESCRIPTION OCD Titration for portable ox* MUPIROCIN 2 % TOPICAL OINTMENT Apply 1 application to affect* PROMETHAZINE 25 MG TABLET Take 1 tablet by mouth every * INSULIN LISPRO (U-200) 200 UN* Inject subcutaneously 14 unit* Patient taking differently: 14 Units. Inject subcutaneous* LYRICA 100 MG CAPSULE TAKE 1 CAPSULE BY MOUTH THREE* CAPSAICIN 0.075 % TOPICAL CRE* Apply 1 application to affect* ULTICARE PEN NEEDLE 31 GAUGE * USE DIRECTED. TO INJECT IN* VITAMIN C 500 MG TABLET TAKE 1 TABLET BY MOUTH DAILY FERROUS GLUCONATE 324 MG (38 * TAKE 1 TABLET BY MOUTH DAILY * INSULIN GLARGINE (U-100) 100 * Inject 60 units subcutaneousl* STOOL SOFTENER 100 MG CAPSULE TAKE 1 CAPSULE BY MOUTH DAILY CLAUDIA-KYLE 8.6 MG TABLET TAKE 1 TABLET BY MOUTH TWICE * ISOSORBIDE MONONITRATE ER 60 * Take 1.5 tablets by mouth onc* ATORVASTATIN 40 MG TABLET TAKE 1 TABLET BY MOUTH DAILY DILTIAZEM SR 180 MG 24 HR CAP TAKE 1 CAPSULE BY MOUTH EVERY* LEVOTHYROXINE 100 MCG TABLET TAKE 1 TABLET BY MOUTH EVERY * OMEPRAZOLE 20 MG CAPSULE,MARIA EUGENIA* TAKE 1 CAPSULE BY MOUTH EVERY* ELIQUIS 2.5 MG TABLET TAKE 1 TABLET BY MOUTH TWICE * NITROGLYCERIN 0.4 MG SUBLINGU* DISSOLVE 1 TAB UNDER THE TONG* METOPROLOL TARTRATE 50 MG TAB* Take 1 tablet by mouth twice * GLUCOSE 4 GRAM CHEWABLE TABLET Take 4 tablets by mouth as ne* OXYGEN (HOME THERAPY) Inhale 3 L/min as instructed * FLUTICASONE 50 MCG/ACTUATION * Use 2 Sprays in each nostril * METFORMIN ER 500 MG TABLET,EX* Take 2 tablets by mouth twice* DULOXETINE 60 MG CAPSULE,MARIA EUGENIA* Take 1 capsule by mouth once * ASPIRIN 81 MG TABLET,DELAYED * Take 1 tablet by mouth every * FUROSEMIDE 40 MG TABLET Take 1 tablet by mouth twice * ALBUTEROL SULFATE HFA 90 MCG/* Inhale 2 Puffs as instructed * COMPOUNDED PRESCRIPTION Evaluation for diabetic shoes* BLOOD SUGAR DIAGNOSTIC STRIPS Use as directed to check bloo* LANCETS 33 GAUGE Use as directed to check bloo* INCONTINENCE PAD, LINER, DISP* 1 Device as needed (urinary i* COMPOUNDED PRESCRIPTION BLOOD PRESSURE CUFF FOR HOME * BLOOD-GLUCOSE METER KIT UAD to test blood sugar ALCOHOL SWABS UAD to clean skin before test* Problem List As Of Date 12/15/2017 Noted Resolved SUBJECTIVE TINNITUS [H93.19] INVALID FOR* Obstructive sleep apnea [G47.33] INVALID FOR* Hyperlipidemia [E78.5] INVALID FOR* Coronary disease [I25.10] INVALID FOR* Diabetes mellitus, type II ([facility]) [E11.9] INVALID FOR* Morbid obesity ([facility]) [E66.01] Hypothyroidism [E03.9] Anxiety [F41.9] Sleep apnea [G47.30] 02/14/2017 Essential hypertension [I10] Coronary artery disease of [place] artery of stoney* AF (paroxysmal atrial fibrillation) ([facility]) [I48.* COPD (chronic obstructive pulmonary disease) (H* GERD without esophagitis [K21.9] Dysphagia [R13.10] Constipation [K59.00] DM type 2 (diabetes mellitus, type 2) ([facility]) [E1* 02/14/2017 Shortness of breath [R06.02] 02/14/2017 Arthritis [M19.90] More... CHF (congestive heart failure) ([facility]) [I50.9] BPPV (benign paroxysmal positional vertigo) [H8*INVALID FOR* RLS (restless legs syndrome) [G25.81] INVALID FOR* Iron deficiency concern: RE RLS [E61.1] INVALID FOR* Tubular adenoma [D36.9] INVALID FOR* Incontinence [R32] More... Gastroparesis [K31.84] INVALID FOR* Pre-op testing [Z01.818] INVALID FOR* More... Encounter Status:Closed by TEJAL ARMENDARIZ RN on 12/15/17 Chart Close Cosign Required by: Elpidio Rabago[] HISTORY PHYSICAL Observed: 12/15/2017 Status: COMPLETED Source: [place] 12:56 PM [facility] REPOSITORY HNO ID: [id number] Author: Lori Cline Service: (none) Author Type: Physician Type: HANDP Filed: 12/18/2017 4:36 PM Note Text: HISTORY AND PHYSICAL EXAMINATION (IMPACT) SERVICE DATE: 12/15/2017 SERVICE TIME: 12:56 PM PRIMARY CARE PHYSICIAN: Nanda Oliveira MD CHIEF COMPLAINT/HISTORY OF PRESENT ILLNESS: Ms. Panda is a 62 year old female referred to me for preoperative evaluation. My final recommendations will be communicated back to the requesting physician/surgeon by the way of the shared medical record. Referring Surgeon: Dr. Connolly Date of Surgery: 12/19/2017 Jefferson Connolly Primary General Procedure: ENDOSCOPIC PER-ORAL PYLOROMYOTOMY Laterality Anesthesia Op Region N/A Indication for Planned Surgery / Procedure: Gastroparesis Symptoms of dysphagia for years. Refer to Assessment section for details of any comorbidities. Patient is Able to Perform the Following Physical Activity: Walk indoors, such as around the house (1.75 METs) Here alone in wheelchair using oxygen, from [place]. Walks around her small apt. Uses can in apartment due to pain in back and legs. In wheelchair here. On 3 L oxygen. Does have exertional chest pressure at times. Occ takes NGN.Will go aaway with rest or up to 2 NGN. DM A fib/flutter Hypothyroidism COPD on 3L Oxygen PARESH on CPAP Had PE 1987 Significant Anesthesia Considerations: None. PAST MEDICAL/SURGICAL/FAMILY/SOCIAL HISTORY PAST MEDICAL HISTORY Diagnosis Date - Acute chronic obstructive pulmonary disease with respiratory failure (HCC) - AF (paroxysmal atrial fibrillation) ([facility]) - Anxiety - Arthritis Seeing Dr Elliott - Cervical cancer ([facility]) hysterectomy - CHF (congestive heart failure) ([facility]) - Chronic back pain Seeing Dr. Wallace - Constipation - COPD (chronic obstructive pulmonary disease) ([facility]) - Coronary atherosclerosis of [place] coronary artery Previously seeing Dr. Sosa - DDD (degenerative disc disease), lumbar - DM type 2 (diabetes mellitus, type 2) ([facility]) Seeing Dr. Foley for podiatry - DVT (deep venous thrombosis) ([facility]) Post op INA, BSO. - Dysphagia Seeing Dr. Beaulieu - Emphysema lung ([facility]) - Essential hypertension - Functional dyspepsia - Gastroparesis 2017 mild - GERD without esophagitis - Headache - History of colon polyps 11/28/2016 - Hyperlipidemia - Hypothyroidism - Incontinence Seeing Dr. Chapman - Morbid obesity (HCC) - Muscle weakness - Nausea - PARESH on CPAP [facility], no longer using as of 10/2017, was not compliant - PE (pulmonary thromboembolism) ([facility]) Post op INA/BSO. - Pneumonia - RLS (restless legs syndrome) - Shortness of breath - Sleep apnea using oxygen currently, not on CPAP - Unsteadiness on feet - Wheezing PAST SURGICAL HISTORY Procedure Laterality Date - CHOLECYSTECTOMY - COLONOS W/REM POLYP SNARE 11/28/2016 Repeat 2019 - COLONOSCOPY Has had multiple in the past with polyps, cannot remember dates - EGD W/O BRSH SPECIMEN W/BX 11/28/2016 - HERNIA REPAIR HX multiple - KNEE SURGERY HX Left x3 for torn cartilage - NASAL SURGERY PROCEDURE sinus - TOTAL ABDOM HYSTERECTOMY 1987 Cervical cancer - TUBAL LIGATION HX - WRIST SURGERY HX Right ganglion cyst removal x2 FAMILY HISTORY Problem Relation Age of Onset - Coronary Artery Disease Mother - Coronary Artery Disease Father - Asthma Brother - Coronary Artery Disease Brother - Diabetes Sister - Hypertension Sister - Diabetes Sister - Heart Sister - Allergies Sister - Asthma Sister - Allergies Sister - Emphysema Sister Early stages - COPD Paternal Uncle SOCIAL HISTORYSocial History Marital status: Spouse name: Years of education: Number of children: Occupational History 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 Social History Main Topics Smoking status: Former Smoker Packs/day: 1.00 Years: 28.00 Types: Cigarettes Start date: 1978 Quit date: 09/22/2005 Smokeless status: Never Used Comment: Father smoked in childhood. 2nd spouse smoked in home. Alcohol use: No Drug use: No Sexual activity: No Social History Narrative 1 year in current home. No basement, 1 parakeet. Room A/C. Electric baseboard heat. MEDICATIONS/ALLERGIES Current Outpatient Prescriptions: sucralfate (CARAFATE) 100 mg/mL suspension Take 10 mL by mouth four times daily. Disp: 1200 mL Rfl: [address] (PROTONIX) 40 mg tablet Take 1 tablet by mouth twice daily at 6AM and 9PM. Disp: 60 tablet Rfl: 0 COMPOUNDED PRESCRIPTION OCD Titration for portable oxygen concentrator Oxygen Flow Rate between 2-6 liters. To keep oxygen saturation at or above 92%. Disp: 1 Each Rfl: 0 mupirocin (BACTROBAN) 2 % ointment Apply 1 application to affected area three times daily. Disp: 1 Tube Rfl: 0 promethazine (PHENERGAN) 25 mg tablet Take 1 tablet by mouth every 6 hours as needed. Disp: 20 tablet Rfl: 0 insulin lispro (HUMALOG KWIKPEN INSULIN) 200 unit/mL (3 mL) injection Inject subcutaneously 14 units with breakfast, 22 units with lunch, and 24 units with dinner (Patient taking differently: 14 Units. Inject subcutaneously 14 units with breakfast, 22 units with lunch, and 24 units with dinner ) Disp: 18 mL Rfl: 5 LYRICA 100 mg capsule TAKE 1 CAPSULE BY MOUTH THREE TIMES A DAY Disp: 84 capsule Rfl: 5 capsaicin (ZOSTRIX-HP) 0.075 % topical cream Apply 1 application to affected area four times daily. Disp: 60 g Rfl: 2 ULTICARE PEN NEEDLE 31 gauge x 5/16 ndle USE DIRECTED. TO INJECT INSULINS Disp: 200 Each Rfl: 5 VITAMIN C 500 mg tablet TAKE 1 TABLET BY MOUTH DAILY Disp: 30 tablet Rfl: 0 Ferrous Gluconate (FERGON) 324 mg (38 mg iron) tablet TAKE 1 TABLET BY MOUTH DAILY WITH BREAKFAST Disp: 30 tablet Rfl: 0 insulin glargine (LANTUS SOLOSTAR) 100 unit/mL (3 mL) inpn Inject 60 units subcutaneously twice daily Disp: Rfl: STOOL SOFTENER 100 mg capsule TAKE 1 CAPSULE BY MOUTH DAILY Disp: 28 capsule Rfl: 3 CLAUDIA-KYLE 8.6 mg tab TAKE 1 TABLET BY MOUTH TWICE A DAY Disp: 56 tablet Rfl: 3 isosorbide mononitrate ER (IMDUR) 60 mg 24 hr tablet Take 1.5 tablets by mouth once daily. In the morning Disp: 30 tablet Rfl: 11 atorvastatin (LIPITOR) 40 mg tablet TAKE 1 TABLET BY MOUTH DAILY Disp: 28 tablet Rfl: 3 diltiazem CD (CARDIZEM CD, CARTIA XT) 180 mg 24 hr capsule TAKE 1 CAPSULE BY MOUTH EVERY MORNING Disp: 28 capsule Rfl: 3 levothyroxine (SYNTHROID) 100 mcg tablet TAKE 1 TABLET BY MOUTH EVERY MORNING Disp: 28 tablet Rfl: 3 omeprazole (PRILOSEC) 20 mg capsule TAKE 1 CAPSULE BY MOUTH EVERY MORNING Disp: 28 capsule Rfl: 3 ELIQUIS 2.5 mg tab tab(s) TAKE 1 TABLET BY MOUTH TWICE A DAY Disp: 56 tablet Rfl: 2 nitroglycerin sublingual (NITROQUICK) 0.4 mg SL tablet DISSOLVE 1 TAB UNDER THE TONGUE NEEDED FOR CHEST PAIN EVERY 5 MINUTES UP TO 3 TIMES. IF NO RELIEF CALL 911. Disp: 25 tablet Rfl: 10 metoprolol tartrate, short acting, (LOPRESSOR) 50 mg tablet Take 1 tablet by mouth twice daily. Disp: Rfl: glucose 4 gram chewable tablet Take 4 tablets by mouth as needed for Low Blood Sugar. Disp: 10 tablet Rfl: 3 OXYGEN, HOME THERAPY, Inhale 3 L/min as instructed as directed. Disp: Rfl: 0 fluticasone (FLONASE) 50 mcg/actuation nasal spray Use 2 Sprays in each nostril once daily. Disp: 16 g Rfl: 5 metFORMIN ER (GLUCOPHAGE XR) 500 mg 24 hr tablet Take 2 tablets by mouth twice daily. Disp: 360 tablet Rfl: 3 DULoxetine (CYMBALTA) 60 mg capsule Take 1 capsule by mouth once daily. Disp: 90 capsule Rfl: 3 aspirin, enteric coated (ASPIRIN, ENTERIC COATED) 81 mg EC tablet Take 1 tablet by mouth every morning. Disp: 90 tablet Rfl: 3 furosemide (LASIX) 40 mg tablet Take 1 tablet by mouth twice daily. Disp: Rfl: albuterol HFA (VENTOLIN HFA) 90 mcg/actuation inhaler Inhale 2 Puffs as instructed every 4 hours as needed for Wheezing/Shortness of Breath. Disp: 1 Inhaler Rfl: 5 COMPOUNDED PRESCRIPTION Evaluation for diabetic shoes and inserts Dx: E11.65, Z79.4 Disp: 1 Each Rfl: 0 blood sugar diagnostic (ONETOUCH ULTRA TEST) test strip Use as directed to check blood sugar 4-5 times daily DX: E11.65 Insulin: yes DM: yes Disp: 200 Strip Rfl: 9 lancets (ONE TOUCH DELICA) 33 gauge misc Use as directed to check blood sugar 4-5 times daily DX: E11.65 Insulin: yes DM: yes Disp: 200 Each Rfl: 9 Incontinence Pad, Liner, Disp pads 1 Device as needed (urinary incontinence). Prevail incontinence pads. Dx: urinary incontinence. Size: small Disp: 200 Each Rfl: 11 Blood Pressure Cuff - Home Use BLOOD PRESSURE CUFF FOR HOME USE. DX: LABILE BLOOD PRESSURE Disp: 1 Device Rfl: 0 Blood-Glucose Meter (ONETOUCH ULTRA2) monitoring kit UAD to test blood sugar Disp: 1 Each Rfl: 0 Alcohol Swabs padm UAD to clean skin before testing blood sugar and injecting insulins. Disp: 300 Each Rfl: 5 No current facility-administered medications for this visit. ALLERGIES Allergen Reactions - Adhesive Tape (Adrienne* Intolerance Surgical tape leaves rash Irritates skin badly and blisters along with medical tape - Cats Other: See Comments Congested and itchy, difficulty breathing - Dogs Other: See Comments Congestion, sneezing, and difficulty breathing - Orphenadrine Unknown - Ciprofloxacin Other: See Comments Red, hot, itchy rash - Keflex [Cephalexin] Hives - Niacin Unknown - Niacin Preparations - Penicillin G - Penicillins Unknown - Reglan [Metoclopram* Other: See Comments Unable to sleep - Xanthines Unknown REVIEW OF SYSTEMS General: No weight loss, malaise or fevers. Neuro: ?TIA, memory loss per patient ? TIA 3 years ago ? Word finding difficulties; Tremor L hand Respiratory: COPD, Obstructive Sleep Apnea (without Rx) Cardiovascular: 2003, last [facility], Had PCI Stent. Does have exertional chest pressure at times. Occ takes NGN.Will go aaway with rest or up to 2 NGN. Saw a multimedia artist in [facility]. Her multimedia artist and that was the last time she saw a multimedia artist ~ 3-4 months ago. 2016 Stress test Lexiscan : Moderate to large inflateral ischemia. + CHF, preserved EF, A fib on Eliquis. Last admission 3 years ago. GI: Gastroparesis, dysphagia to food, pills : No history of UTI in past 6 weeks. No history of renal failure. Not currently on or requiring dialysis. No history of symptoms or problems. LOG CUT OFF SAWYER: No vaginal bleeding due to menopause and no abnormal vaginal discharge. Endocrine: Diabetes Mellitus on insulin Hematology: No history of bleeding or clotting disorder. No history of hematological symptoms or problems. Oncology: No history of CA metastasis, chemo within 30 days, or radiotherapy within 90 days. No history of oncological symptoms or problems. Psych: Anxiety Skin: Negative for lesions, rash, and itching. PHYSICAL EXAM VITALS: BP 106/60 Pulse 70 Temp (Src) 98.2 (Oral) Ht 5' 2 (1.58m) Wt 221 lb (100.2kg) SpO2 95% BMI 40.41 kg/(m2). General: Alert and oriented, Morbidly obese Skin: Normal color, no rash, no lesions. HEENT: EOM, pupils equal, round and reactive. Cardiovascular: Pulse irregular Lungs: Normal breath sounds, no wheezes or crackles. Abdomen: Soft, non-tender, no rigidity. Extremities: Edema trace B Neurological: oriented, some word finding difficulties motor skills. Pulses: Radial pulses; left 2+ / right 2+. ASSESSMENT Ms. Panda is a 62 year old female referred to me for preoperative evaluation. Patient has the following medical comorbidities which might affect the perioperative course: Does have exertional chest pressure at times. Occ takes NGN.Will go away with rest or up to 2 NGN. Abnormal stress test 2016, uncertain if reversible ischemia or what further interventions recommended, overall symptoms c/w stable angina. DM with Cr 1.1, severe neuropathy A fib/flutter Hypothyroidism COPD on 3L Oxygen PARESH on CPAP HfpEF Had PE 1987, provoked Chronic immobility and poor functional status ? TIA 3 years ago Tremor Chronic pain Patient's RCRI (Revised Cardiac Risk Index: CAD/CHF/Stroke or TIA/SCr>2/DM on Insulin/High Risk Surgery) score is 4 and is at elevated risk for major adverse cardiac events in the perioperative period. Diagnostic tests reviewed for today's visit: Most recent labs CBC, Coags, BMP, Mg, Phos Recent Labs 12/15/17 0925 WBC 6.60 HB 12.8 HCT 42.5 PLT 246 INR 1.0 APTT 25.9 NA 145* K 4.6 CHLOR 99 CO2 33* BUN 16 CREAT 1.11* GLUC 110* CA 9.3 Liver Function, Amylase, AND Lipase Recent Labs 12/15/17 0925 TPROT 7.0 ALB 4.1 ALT 11 AST 14 ALKPHOS 38 TBILI 0.5 Most recent EKG: atrial fibrillation at 83 beats per minute, normal axis, normal intervals, reviewed by myself. Most recent Echo Most recent stress test / ?8:12 AM - Interface, Trans In Results ? [facility] ?[address] ? [place] [address] ?Test Date: ? ? 2017 Pat Name: ? ? ?TAMIA HENRY ?Department: ? ? Patient ID: ? ?[id number] ? Room: ? 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 ? : ? 1955 ?Requested By: ? Order Number: ?[id number] ?Reading MD: ? ?Gayathri Jacome ?Interpretive Statements All lung volume repeatability criteria met. ATS acceptability and repeatability standards for DLCO met. IMPRESSION: The TLC, FRC and RV are reduced indicating restriction. The diffusing capacity is moderately reduced. The presence of a reduced DLCO that normalizes when corrected for volume is consistent with a nonparenchymal disorder but does not rule out parenchymal or pulmonary vascular disease. The diffusing capacity corrected for volume is normal. Electronically Signed On 01-17-2017 8:09:02 EDT by Gayathri Jacome [facility] ? 09/12/2016 ?5:17 PM - Interface, Trans In Results ? [facility] ?[address] ? [place] [address] ?Test Date: ? ? 2016-09-11 Pat Name: ? ? ?TAMIA AMORGeoff ?Department: ? ? Patient ID: ? ?[id number] ? Room: ? 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 ? : ? 1955 ?Requested By: ? Order Number: ?[id number] ?Reading MD: ? ?Gayathri Jacome ?Interpretive Statements Extrapolated volume greater than ATS allows; FEV1 may not be valid. Time to peak flow higher than lab standard, FEV1 may not be valid. 4 puffs of albuterol (360mcg) delivered by MDI via valved holding chamber, ?HR pre 101, HR post 101. Medications and allergies were reviewed for possible drug interactions per policy MM-102. ?No Contraindications or sensitivities were noted. IMPRESSION: Spirometry shows no obstruction. The reduced FVC suggests mild restriction. ?Recommend lung volumes if clinically indicated. There is no significant bronchodilator response. Electronically Signed On 09-12-2016 17:02:03 EST by Gayathri Jacome PLAN/RECOMMENDATIONS CARDIAC: Continue the following medications uninterrupted in the perioperative period: ASA, Diltiazem, Metoprolol Patient referred to Cardiology for further evaluation prior to surgery for CAD, HfpEF, angina, abnormal stress test. PULMONARY: Patient is at increased risk for postoperative pulmonary complications. Advised patient to stop smoking. Suggest the following in the post-operative period: Continue bronchodilator medications, Aggressive bronchopulmonary hygiene, CPAP/BiPAP at home setting (advised patient to bring their CPAP/BiPAP machine/mask) and Minimize sedation/opioids as patient has PARESH ENDOCRINE: DIABETES: - Initiate [facility] Guidelines for perioperative diabetes management. Check finger stick glucose on the morning of surgery. - Patient has been instructed on Preoperative DM medication management. RENAL: - Suggest following in the postoperative period due to patient's pre-existing renal disease: Avoid nephrotoxic medications Dose medications on estimated serum creatinine clearance Monitor fluid balance closely and avoid hypotension. Avoid dehydration / volume depletion Monitor serum creatinine VASCULAR/ANTICOAGULATION: VTE prophylaxis as deemed appropriate by the surgical service. Patient is NOT optimally prepared for surgery. Patient Instructions: As per patient instructions section. I have discussed the above recommendations with the patient in detail, in thelma and lay terms, and provided a written summary of instructions as needed. We have discussed that no surgery is without risk, but that the goal of preoperative assessment is to optimize that risk, and that was clearly understood by the patient. I have given ample opportunity for the patient to ask questions, and answered all questions to their stated satisfaction. SIGNATURE: Lori Cline MD PATIENT NAME: Tamia Panda DATE: December 15, 2017 TIME: 12:56 PM CBC, Coags, BMP, Mg, Phos Recent Labs 12/15/17 0925 WBC 6.60 HB 12.8 HCT 42.5 PLT 246 INR 1.0 APTT 25.9 NA 145* K 4.6 CHLOR 99 CO2 33* BUN 16 CREAT 1.11* GLUC 110* CA 9.3 Liver Function, Amylase, AND Lipase Recent Labs 12/15/17 0925 TPROT 7.0 ALB 4.1 ALT 11 AST 14 ALKPHOS 38 TBILI 0.5 Labs are acceptable for surgery. 4:41 PM December 15, 2017 Progress Notes by Donal Albright at 12/18/2017 3:30 PM ? ? Author: Donal Albright Author Type: Physician Filed: 12/18/2017 ?3:51 PM ? ? Note Status: Signed Cosign: Cosign Not Required Encounter Date: 12/18/2017 ? ? Float Remover: Donal Albright (Physician) ? Expand All Collapse All PERTINENT CARDIAC HISTORY ASHD - PCI 2003 Atrial fib - chronic HTN HL DM PARESH - CPAP PE/DVT 1987 - a/c 6 mos CRF CHF - diastolic ? ADHERENCE TO GUIDELINES ? BACILIO-I or ARB for HF with prior LVEF<40 (NQF 0081) - N/A ASA or Plavix for ASHD (NQF 0067) - met Beta sudhakar for ASHD with prior DC or prior LVEF<40 (NQF 0070) - N/A Beta sudhakar for HF with prior LVEF<40 (NQF 0083) - N/A BACILIO-I or ARB for ASHD with DM or prior LVEF<40 (NQF 0066) - low BP Statin therapy for ASHD or FHL or DM - met BMI documented and plan if >25 (NQF 0421) - lifestyle recommendation form Tobacco use screening and referral (NQF 0028) - lifestyle recommendation form Recommendation for whole food, plant based diet - lifestyle recommendation form ? CLINICAL IMPRESSION/PLAN: Tamia Panda underwent stress testing today which was abnormal, as noted below. ? There is discordance between the 2 studies, although the presence of atrial fibrillation may have affected specificity. She is at least at intermediate risk of perioperative cardiac complications. She is in chronic atrial fibrillation with good control of rate and no evidence of decompensated heart failure. ? I recommend that her coronary anatomy be defined prior to elective surgery. We will arrange diagnostic angiography at [facility]. Hopefully she will have disease which will allow us to proceed with surgery in a timely fashion. If she requires stenting, I would discuss with her the options and consequences of bare-metal versus drug-eluting stent, as the latter would postpone surgery for at least a month or 2 longer. ? In the meantime, I have asked her to use nitroglycerin liberally for chest discomfort. It would be difficult for her to make the major lifestyle changes which would be necessary to substantially reduce her risk of coronary disease progression. Her beta sudhakar and isosorbide could be increased for better angina control. ? I will see her on a to be arranged basis. ? Written and verbal health teaching given to patient, patient verbalizes understanding and agrees with treatment plan. ? I spoke with RN Dami for Dr. Griffin. He said he spoke with RN at [facility] to alert Dr. Connolly that surgery was cancelled due to abnormal stress and planned LHC next week. Dr. Connolly's office is aware and will cancel surgery. 4:36 PM December 18, 2017 IESHA Observed: 12/15/2017 Status: COMPLETED Source: [place] 12:45 PM [facility] REPOSITORY Office Visit (IMPAMN) TAMIA PANDA ([id number]) 1955 F Date Time Provider Department 12/15/17 12:45 PM LORI CLINE During your visit today, we recorded the following information about you: Temperature Pulse Blood pressure Weight 98.2 degrees 70/minute 106/60 100.2 kg Height 1.575 m Lori Cline MD 12/15/2017 1:42 PM Signed Tamia Panda is a 62 year old female here today for visit in [facility] Referring Surgeon: Dr. Connolly Date of Surgery: 12/19/2017 Planned Surgery/Procedure: ENDOSCOPIC PER-ORAL PYLOROMYOTOMY Allergies have been reviewed and verified. They include the following: Adhesive Tape (Rosins); Cats; Dogs; Orphenadrine; Ciprofloxacin; Keflex [Cephalexin]; Niacin; Niacin Preparations; Penicillin G; Penicillins; Reglan [Metoclopramide Hcl]; Xanthines Social History Substance Use Topics - Smoking status: Former Smoker Packs/day: 1.00 Years: 28.00 Types: Cigarettes Start date: 1978 Quit date: 09/22/2005 - Smokeless tobacco: Never Used Comment: Father smoked in childhood. 2nd spouse smoked in home. - Alcohol use No Medications reviewed and updated: Yes Zulma Cline MD 12/18/2017 4:36 PM Addendum HISTORY AND PHYSICAL EXAMINATION (IMPACT) SERVICE DATE: 12/15/2017 SERVICE TIME: 12:56 PM PRIMARY CARE PHYSICIAN: Nanda Oliveira MD CHIEF COMPLAINT/HISTORY OF PRESENT ILLNESS: Ms. Panda is a 62 year old female referred to me for preoperative evaluation. My final recommendations will be communicated back to the requesting physician/surgeon by the way of the shared medical record. Referring Surgeon: Dr. Connolly Date of Surgery: 12/19/2017 Jefferson Connolly Primary General Procedure: ENDOSCOPIC PER-ORAL PYLOROMYOTOMY Laterality Anesthesia Op Region N/A Indication for Planned Surgery / Procedure: Gastroparesis Symptoms of dysphagia for years. Refer to Assessment section for details of any comorbidities. Patient is Able to Perform the Following Physical Activity: Walk indoors, such as around the house (1.75 METs) Here alone in wheelchair using oxygen, from [place]. Walks around her small apt. Uses can in apartment due to pain in back and legs. In wheelchair here. On 3 L oxygen. Does have exertional chest pressure at times. Occ takes NGN.Will go aaway with rest or up to 2 NGN. DM A fib/flutter Hypothyroidism COPD on 3L Oxygen PARESH on CPAP Had PE 1987 Significant Anesthesia Considerations: None. PAST MEDICAL/SURGICAL/FAMILY/SOCIAL HISTORY PAST MEDICAL HISTORY Diagnosis Date - Acute chronic obstructive pulmonary disease with respiratory failure (HCC) - AF (paroxysmal atrial fibrillation) (HCC) - Anxiety - Arthritis Seeing Dr Elliott - Cervical cancer ([facility]) hysterectomy - CHF (congestive heart failure) ([facility]) - Chronic back pain Seeing Dr. Wallace - Constipation - COPD (chronic obstructive pulmonary disease) ([facility]) - Coronary atherosclerosis of [place] coronary artery Previously seeing Dr. Sosa - DDD (degenerative disc disease), lumbar - DM type 2 (diabetes mellitus, type 2) ([facility]) Seeing Dr. Foley for podiatry - DVT (deep venous thrombosis) ([facility]) Post op INA, BSO. - Dysphagia Seeing Dr. Beaulieu - Emphysema lung ([facility]) - Essential hypertension - Functional dyspepsia - Gastroparesis 2016 mild - GERD without esophagitis - Headache - History of colon polyps 11/28/2016 - Hyperlipidemia - Hypothyroidism - Incontinence Seeing Dr. Chapman - Morbid obesity ([facility]) - Muscle weakness - Nausea - PARESH on CPAP [facility], no longer using as of 10/2017, was not compliant - PE (pulmonary thromboembolism) ([facility]) Post op INA/BSO. - Pneumonia - RLS (restless legs syndrome) - Shortness of breath - Sleep apnea using oxygen currently, not on CPAP - Unsteadiness on feet - Wheezing PAST SURGICAL HISTORY Procedure Laterality Date - CHOLECYSTECTOMY - COLONOS W/REM POLYP SNARE 11/28/2016 Repeat 2019 - COLONOSCOPY Has had multiple in the past with polyps, cannot remember dates - EGD W/O BRSH SPECIMEN W/BX 11/28/2016 - HERNIA REPAIR HX multiple - KNEE SURGERY HX Left x3 for torn cartilage - NASAL SURGERY PROCEDURE sinus - TOTAL ABDOM HYSTERECTOMY 1987 Cervical cancer - TUBAL LIGATION HX - WRIST SURGERY HX Right ganglion cyst removal x2 FAMILY HISTORY Problem Relation Age of Onset - Coronary Artery Disease Mother - Coronary Artery Disease Father - Asthma Brother - Coronary Artery Disease Brother - Diabetes Sister - Hypertension Sister - Diabetes Sister - Heart Sister - Allergies Sister - Asthma Sister - Allergies Sister - Emphysema Sister ANDquot;Early stagesANDquot; - COPD Paternal Uncle SOCIAL HISTORYSocial History Marital status: Spouse name: Years of education: Number of children: Occupational History 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 Social History Main Topics Smoking status: Former Smoker Packs/day: 1.00 Years: 28.00 Types: Cigarettes Start date: 1978 Quit date: 09/22/2005 Smokeless status: Never Used Comment: Father smoked in childhood. 2nd spouse smoked in home. Alcohol use: No Drug use: No Sexual activity: No Social History Narrative 1 year in current home. No basement, 1 parakeet. Room A/C. Electric baseboard heat. MEDICATIONS/ALLERGIES Current Outpatient Prescriptions: sucralfate (CARAFATE) 100 mg/mL suspension Take 10 mL by mouth four times daily. Disp: 1200 mL Rfl: [address] (PROTONIX) 40 mg tablet Take 1 tablet by mouth twice daily at 6AM and 9PM. Disp: 60 tablet Rfl: 0 COMPOUNDED PRESCRIPTION OCD Titration for portable oxygen concentrator Oxygen Flow Rate between 2-6 liters. To keep oxygen saturation at or above 92%. Disp: 1 Each Rfl: 0 mupirocin (BACTROBAN) 2 % ointment Apply 1 application to affected area three times daily. Disp: 1 Tube Rfl: 0 promethazine (PHENERGAN) 25 mg tablet Take 1 tablet by mouth every 6 hours as needed. Disp: 20 tablet Rfl: 0 insulin lispro (HUMALOG KWIKPEN INSULIN) 200 unit/mL (3 mL) injection Inject subcutaneously 14 units with breakfast, 22 units with lunch, and 24 units with dinner (Patient taking differently: 14 Units. Inject subcutaneously 14 units with breakfast, 22 units with lunch, and 24 units with dinner ) Disp: 18 mL Rfl: 5 LYRICA 100 mg capsule TAKE 1 CAPSULE BY MOUTH THREE TIMES A DAY Disp: 84 capsule Rfl: 5 capsaicin (ZOSTRIX-HP) 0.075 % topical cream Apply 1 application to affected area four times daily. Disp: 60 g Rfl: 2 ULTICARE PEN NEEDLE 31 gauge x 5/16ANDquot; ndle USE DIRECTED. TO INJECT INSULINS Disp: 200 Each Rfl: 5 VITAMIN C 500 mg tablet TAKE 1 TABLET BY MOUTH DAILY Disp: 30 tablet Rfl: 0 Ferrous Gluconate (FERGON) 324 mg (38 mg iron) tablet TAKE 1 TABLET BY MOUTH DAILY WITH BREAKFAST Disp: 30 tablet Rfl: 0 insulin glargine (LANTUS SOLOSTAR) 100 unit/mL (3 mL) inpn Inject 60 units subcutaneously twice daily Disp: Rfl: STOOL SOFTENER 100 mg capsule TAKE 1 CAPSULE BY MOUTH DAILY Disp: 28 capsule Rfl: 3 CLAUDIA-KYLE 8.6 mg tab TAKE 1 TABLET BY MOUTH TWICE A DAY Disp: 56 tablet Rfl: 3 isosorbide mononitrate ER (IMDUR) 60 mg 24 hr tablet Take 1.5 tablets by mouth once daily. In the morning Disp: 30 tablet Rfl: 11 atorvastatin (LIPITOR) 40 mg tablet TAKE 1 TABLET BY MOUTH DAILY Disp: 28 tablet Rfl: 3 diltiazem CD (CARDIZEM CD, CARTIA XT) 180 mg 24 hr capsule TAKE 1 CAPSULE BY MOUTH EVERY MORNING Disp: 28 capsule Rfl: 3 levothyroxine (SYNTHROID) 100 mcg tablet TAKE 1 TABLET BY MOUTH EVERY MORNING Disp: 28 tablet Rfl: 3 omeprazole (PRILOSEC) 20 mg capsule TAKE 1 CAPSULE BY MOUTH EVERY MORNING Disp: 28 capsule Rfl: 3 ELIQUIS 2.5 mg tab tab(s) TAKE 1 TABLET BY MOUTH TWICE A DAY Disp: 56 tablet Rfl: 2 nitroglycerin sublingual (NITROQUICK) 0.4 mg SL tablet DISSOLVE 1 TAB UNDER THE TONGUE NEEDED FOR CHEST PAIN EVERY 5 MINUTES UP TO 3 TIMES. IF NO RELIEF CALL 911. Disp: 25 tablet Rfl: 10 metoprolol tartrate, short acting, (LOPRESSOR) 50 mg tablet Take 1 tablet by mouth twice daily. Disp: Rfl: glucose 4 gram chewable tablet Take 4 tablets by mouth as needed for Low Blood Sugar. Disp: 10 tablet Rfl: 3 OXYGEN, HOME THERAPY, Inhale 3 L/min as instructed as directed. Disp: Rfl: 0 fluticasone (FLONASE) 50 mcg/actuation nasal spray Use 2 Sprays in each nostril once daily. Disp: 16 g Rfl: 5 metFORMIN ER (GLUCOPHAGE XR) 500 mg 24 hr tablet Take 2 tablets by mouth twice daily. Disp: 360 tablet Rfl: 3 DULoxetine (CYMBALTA) 60 mg capsule Take 1 capsule by mouth once daily. Disp: 90 capsule Rfl: 3 aspirin, enteric coated (ASPIRIN, ENTERIC COATED) 81 mg EC tablet Take 1 tablet by mouth every morning. Disp: 90 tablet Rfl: 3 furosemide (LASIX) 40 mg tablet Take 1 tablet by mouth twice daily. Disp: Rfl: albuterol HFA (VENTOLIN HFA) 90 mcg/actuation inhaler Inhale 2 Puffs as instructed every 4 hours as needed for Wheezing/Shortness of Breath. Disp: 1 Inhaler Rfl: 5 COMPOUNDED PRESCRIPTION Evaluation for diabetic shoes and inserts Dx: E11.65, Z79.4 Disp: 1 Each Rfl: 0 blood sugar diagnostic (ONETOUCH ULTRA TEST) test strip Use as directed to check blood sugar 4-5 times daily DX: E11. Insulin: yes DM: yes Disp: 200 Strip Rfl: 9 lancets (ONE TOUCH DELICA) 33 gauge misc Use as directed to check blood sugar 4-5 times daily DX: E11 Insulin: yes DM: yes Disp: 200 Each Rfl: 9 Incontinence Pad, Liner, Disp pads 1 Device as needed (urinary incontinence). Prevail incontinence pads. Dx: urinary incontinence. Size: small Disp: 200 Each Rfl: 11 Blood Pressure Cuff - Home Use BLOOD PRESSURE CUFF FOR HOME USE. DX: LABILE BLOOD PRESSURE Disp: 1 Device Rfl: 0 Blood-Glucose Meter (ONETOUCH ULTRA2) monitoring kit UAD to test blood sugar Disp: 1 Each Rfl: 0 Alcohol Swabs padm UAD to clean skin before testing blood sugar and injecting insulins. Disp: 300 Each Rfl: 5 No current facility-administered medications for this visit. ALLERGIES Allergen Reactions - Adhesive Tape (Adrienne* Intolerance Surgical tape leaves rash Irritates skin badly and blisters along with medical tape - Cats Other: See Comments Congested and itchy, difficulty breathing - Dogs Other: See Comments Congestion, sneezing, and difficulty breathing - Orphenadrine Unknown - Ciprofloxacin Other: See Comments Red, hot, itchy rash - Keflex [Cephalexin] Hives - Niacin Unknown - Niacin Preparations - Penicillin G - Penicillins Unknown - Reglan [Metoclopram* Other: See Comments Unable to sleep - Xanthines Unknown REVIEW OF SYSTEMS General: No weight loss, malaise or fevers. Neuro: ?TIA, memory loss per patient ? TIA 3 years ago ? Word finding difficulties; Tremor L hand Respiratory: COPD, Obstructive Sleep Apnea (without Rx) Cardiovascular: 2003, last [facility], Had PCI Stent. Does have exertional chest pressure at times. Occ takes NGN.Will go aaway with rest or up to 2 NGN. Saw a multimedia artist in [facility]. Her multimedia artist and that was the last time she saw a multimedia artist ~ 3-4 months ago. 2016 Stress test Lexiscan : ANDquot;Moderate to large inflateral ischemia.ANDquot; + CHF, preserved EF, A fib on Eliquis. Last admission 3 years ago. GI: Gastroparesis, dysphagia to food, pills : No history of UTI in past 6 weeks. No history of renal failure. Not currently on or requiring dialysis. No history of symptoms or problems. LOG CUT OFF SAWYER: No vaginal bleeding due to menopause and no abnormal vaginal discharge. Endocrine: Diabetes Mellitus on insulin Hematology: No history of bleeding or clotting disorder. No history of hematological symptoms or problems. Oncology: No history of CA metastasis, chemo within 30 days, or radiotherapy within 90 days. No history of oncological symptoms or problems. Psych: Anxiety Skin: Negative for lesions, rash, and itching. PHYSICAL EXAM VITALS: BP 106/60 Pulse 70 Temp (Src) 98.2 (Oral) Ht 5' 2ANDquot; (1.58m) Wt 221 lb (100.2kg) SpO2 95% BMI 40.41 kg/(m2). General: Alert and oriented, Morbidly obese Skin: Normal color, no rash, no lesions. HEENT: EOM, pupils equal, round and reactive. Cardiovascular: Pulse irregular Lungs: Normal breath sounds, no wheezes or crackles. Abdomen: Soft, non-tender, no rigidity. Extremities: Edema trace B Neurological: oriented, some word finding difficulties motor skills. Pulses: Radial pulses; left 2+ / right 2+. ASSESSMENT Ms. Panda is a 62 year old female referred to me for preoperative evaluation. Patient has the following medical comorbidities which might affect the perioperative course: Does have exertional chest pressure at times. Occ takes NGN.Will go away with rest or up to 2 NGN. Abnormal stress test 2015, uncertain if reversible ischemia or what further interventions recommended, overall symptoms c/w stable angina. DM with Cr 1.1, severe neuropathy A fib/flutter Hypothyroidism COPD on 3L Oxygen PARESH on CPAP HfpEF Had PE 1987, provoked Chronic immobility and poor functional status ? TIA 3 years ago Tremor Chronic pain Patient's RCRI (Revised Cardiac Risk Index: CAD/CHF/Stroke or TIA/SCrANDgt;2/DM on Insulin/High Risk Surgery) score is 4 and is at elevated risk for major adverse cardiac events in the perioperative period. Diagnostic tests reviewed for today's visit: Most recent labs CBC, Coags, BMP, Mg, Phos Recent Labs 12/15/17 0925 WBC 6.60 HB 12.8 HCT 42.5 PLT 246 INR 1.0 APTT 25.9 NA 145* K 4.6 CHLOR 99 CO2 33* BUN 16 CREAT 1.11* GLUC 110* CA 9.3 Liver Function, Amylase, ANDamp; Lipase Recent Labs 12/15/17 0925 TPROT 7.0 ALB 4.1 ALT 11 AST 14 ALKPHOS 38 TBILI 0.5 Most recent EKG: atrial fibrillation at 83 beats per minute, normal axis, normal intervals, reviewed by myself. Most recent Echo Most recent stress test / ?8:12 AM - Interface, Trans In Results ? [facility] ? [place] [address] ?Test Date: ? ? 2017 Pat Name: ? ? ?TAMIA PANDA ?Department: ? ? Patient ID: ? ?[id number] ? Room: ? 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 ? : ? 1955 ?Requested By: ? Order Number: ?[id number] ?Reading MD: ? ?Gayathri Jacome ?Interpretive Statements All lung volume repeatability criteria met. ATS acceptability and repeatability standards for DLCO met. IMPRESSION: The TLC, FRC and RV are reduced indicating restriction. The diffusing capacity is moderately reduced. The presence of a reduced DLCO that normalizes when corrected for volume is consistent with a nonparenchymal disorder but does not rule out parenchymal or pulmonary vascular disease. The diffusing capacity corrected for volume is normal. Electronically Signed On 01-17-2017 8:09:02 EDT by Gayathri Jacome [facility] ? 09/12/2016 ?5:17 PM - Interface, Trans In Results ? [facility] ?[address] ? [place] [address] ?Test Date: ? ? 2016-09-11 Pat Name: ? ? ?TAMIA PANDA ?Department: ? ? Patient ID: ? ?[id number] ? Room: ? 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 ? : ? 1955 ?Requested By: ? Order Number: ?[id number] ?Reading MD: ? ?Gayathri Jacome ?Interpretive Statements Extrapolated volume greater than ATS allows; FEV1 may not be valid. Time to peak flow higher than lab standard, FEV1 may not be valid. 4 puffs of albuterol (360mcg) delivered by MDI via valved holding chamber, ?HR pre 101, HR post 101. Medications and allergies were reviewed for possible drug interactions per policy MM-102. ?No Contraindications or sensitivities were noted. IMPRESSION: Spirometry shows no obstruction. The reduced FVC suggests mild restriction. ?Recommend lung volumes if clinically indicated. There is no significant bronchodilator response. Electronically Signed On 09-12-2016 17:02:03 EST by Gayathri Jacome PLAN/RECOMMENDATIONS CARDIAC: Continue the following medications uninterrupted in the perioperative period: ASA, Diltiazem, Metoprolol Patient referred to Cardiology for further evaluation prior to surgery for CAD, HfpEF, angina, abnormal stress test. PULMONARY: Patient is at increased risk for postoperative pulmonary complications. Advised patient to stop smoking. Suggest the following in the post-operative period: Continue bronchodilator medications, Aggressive bronchopulmonary hygiene, CPAP/BiPAP at home setting (advised patient to bring their CPAP/BiPAP machine/mask) and Minimize sedation/opioids as patient has PARESH ENDOCRINE: DIABETES: - Initiate [facility] Guidelines for perioperative diabetes management. Check finger stick glucose on the morning of surgery. - Patient has been instructed on Preoperative DM medication management. RENAL: - Suggest following in the postoperative period due to patient's pre-existing renal disease: Avoid nephrotoxic medications Dose medications on estimated serum creatinine clearance Monitor fluid balance closely and avoid hypotension. Avoid dehydration / volume depletion Monitor serum creatinine VASCULAR/ANTICOAGULATION: VTE prophylaxis as deemed appropriate by the surgical service. Patient is NOT optimally prepared for surgery. Patient Instructions: As per patient instructions section. I have discussed the above recommendations with the patient in detail, in thelma and lay terms, and provided a written summary of instructions as needed. We have discussed that no surgery is without risk, but that the goal of preoperative assessment is to optimize that risk, and that was clearly understood by the patient. I have given ample opportunity for the patient to ask questions, and answered all questions to their stated satisfaction. SIGNATURE: Lori Cline MD PATIENT NAME: Tamia Panda DATE: December 15, 2017 TIME: 12:56 PM CBC, Coags, BMP, Mg, Phos Recent Labs 12/15/17 0925 WBC 6.60 HB 12.8 HCT 42.5 PLT 246 INR 1.0 APTT 25.9 NA 145* K 4.6 CHLOR 99 CO2 33* BUN 16 CREAT 1.11* GLUC 110* CA 9.3 Liver Function, Amylase, ANDamp; Lipase Recent Labs 12/15/17 0925 TPROT 7.0 ALB 4.1 ALT 11 AST 14 ALKPHOS 38 TBILI 0.5 Labs are acceptable for surgery. 4:41 PM December 15, 2017 Progress Notes by Donal Albright at 12/18/2017 3:30 PM ? ? Author: Donal Albright Author Type: Physician Filed: 12/18/2017 ?3:51 PM ? ? Note Status: Signed Cosign: Cosign Not Required Encounter Date: 12/18/2017 ? ? Float Remover: Donal Albright (Physician) ? Expand All Collapse All PERTINENT CARDIAC HISTORY ASHD - PCI 2003 Atrial fib - chronic HTN HL DM PARESH - CPAP PE/DVT 1987 - a/c 6 mos CRF CHF - diastolic ? ADHERENCE TO GUIDELINES ? BACILIO-I or ARB for HF with prior LVEFANDlt;40 (NQF 0081) - N/A ASA or Plavix for ASHD (NQF 0067) - met Beta sudhakar for ASHD with prior DC or prior LVEFANDlt;40 (NQF 0070) - N/A Beta sudhakar for HF with prior LVEFANDlt;40 (NQF 0083) - N/A BACILIO-I or ARB for ASHD with DM or prior LVEFANDlt;40 (NQF 0066) - low BP Statin therapy for ASHD or FHL or DM - met BMI documented and plan if ANDgt;25 (NQF 0421) - lifestyle recommendation form Tobacco use screening and referral (NQF 0028) - lifestyle recommendation form Recommendation for whole food, plant based diet - lifestyle recommendation form ? CLINICAL IMPRESSION/PLAN: Tamia Panda underwent stress testing today which was abnormal, as noted below. ? There is discordance between the 2 studies, although the presence of atrial fibrillation may have affected specificity. She is at least at intermediate risk of perioperative cardiac complications. She is in chronic atrial fibrillation with good control of rate and no evidence of decompensated heart failure. ? I recommend that her coronary anatomy be defined prior to elective surgery. We will arrange diagnostic angiography at [facility]. Hopefully she will have disease which will allow us to proceed with surgery in a timely fashion. If she requires stenting, I would discuss with her the options and consequences of bare-metal versus drug-eluting stent, as the latter would postpone surgery for at least a month or 2 longer. ? In the meantime, I have asked her to use nitroglycerin liberally for chest discomfort. It would be difficult for her to make the major lifestyle changes which would be necessary to substantially reduce her risk of coronary disease progression. Her beta sudhakar and isosorbide could be increased for better angina control. ? I will see her on a to be arranged basis. ? Written and verbal health teaching given to patient, patient verbalizes understanding and agrees with treatment plan. ? I spoke with NINA Lomax for Dr. Griffin. He said he spoke with RN at [facility] to alert Dr. Connolly that surgery was cancelled due to abnormal stress and planned LHC next week. Dr. Connolly's office is aware and will cancel surgery. 4:36 PM December 18, 2017 Lori Cline MD 12/15/2017 1:[address] [facility] Patient Instructions for Surgery FOOD INSTRUCTIONS: NO solid food or liquids for 8 hours prior to the arrival time for your surgery (except a few sips to take your meds). MEDICATION INSTRUCTIONS: Prior to Surgery: Do not take the following medications for 7 days prior to surgery: - any NSAID's (e.g. Motrin, Aleve, Arthrotec, Naproxen,etc) - any herbal preparations Do not take any Vitamin E / multivitamins for 10-14 days before surgery You are allowed to take Tylenol if needed until the day of surgery. Please bring your inhalers and or CPAP/BiPAP machine and mask when you come for your surgery. Do NOT STOP YOUR ASPIRIN as you have a cardiac/coronary stent. Last dose of Eliquis should be 72 hours prior to surgery, that is last dose FridayDecember 15. MEDICATION INSTRUCTIONS: Day/Morning of Surgery: The following medications should be taken with sips of water: Aspirin, Cardizem (Diltiazem), Imdur, Metoprolol, Prilosec DIABETES MANAGEMENT INSTRUCTIONS: Eat a usual diet until the day prior to surgery unless indicated by your surgeon/physician. If your blood sugar is below 70 mg/dl at any time, treat with ? cup of apple juice or saul robert, or 4 glucose tabs or 1 tube of oral glucose gel. MEDICATION INSTRUCTIONS: Prior to Surgery: ? Continue all diabetic pills as scheduled including the evening prior to surgery. ? Continue your current injectable medications (eg: insulin, symlin, byetta, etc) as scheduled INCLUDING EVENING AND BEDTIME. ? Take Lantus 50 units the night prior to surgery. MEDICATION INSTRUCTIONS: Day/Morning of Surgery: ? Do not take your Diabetic pills. ? GLARGINE/LANTUS: Take half of your usual dose of Lantus Insulin (30 units) If you have any questions or concerns regarding today's visit please do not hesitate to contact the [facility] at [phone] or [phone], ext [phone]. Signature: Lori Cline MD Date: December 15, 2017 Referring Provider: JEFFERSON CONNOLLY [[id number]] Allergies As of Date: 12/15/2017 Noted Allergy Reaction ADHESIVE TAPE (ROSINS) 04/04/2015 5 - Intolerance Comments: Surgical tape leaves rash Irritates skin badly and blisters along with medical tape CATS 04/10/2016 14 - Other: See Comments Comments: Congested and itchy, difficulty breathing DOGS 04/10/2016 14 - Other: See Comments Comments: Congestion, sneezing, and difficulty breathing ORPHENADRINE 04/10/2016 16 - Unknown CIPROFLOXACIN 12/11/2011 14 - Other: See Comments Comments: Red, hot, itchy rash KEFLEX (CEPHALEXIN) 07/10/2016 4 - Hives NIACIN 04/04/2015 16 - Unknown NIACIN PREPARATIONS 10/18/2004 PENICILLIN G 10/18/2004 PENICILLINS 04/04/2015 16 - Unknown REGLAN (METOCLOPRAMIDE HCL) 03/04/2017 14 - Other: See Comments Comments: Unable to sleep XANTHINES 10/18/2004 16 - Unknown Date Reviewed: 12/15/2017 Reviewed by: Tejal Armendariz RN - Fully Assessed Primary Visit Diagnosis:Pre-operative examination [Z01.818] Other Visit Diagnoses:Coronary artery disease of [place] heart with stable angina pectoris, unspecified vessel or lesion type ([facility]) [I25.118] Gastroparesis [K31.84] Obstructive sleep apnea [G47.33] Morbid obesity ([facility]) [E66.01] COPD with exacerbation ([facility]) [J44.1] Order(s):CONSULT TO CARDIOLOGY [9004] Order #: [id number]: 1 Prescriptions as of 12/15/2017 Sig: SUCRALFATE 100 MG/ML ORAL GISELLE* Take 10 mL by mouth four time* COMPOUNDED PRESCRIPTION OCD Titration for portable ox* MUPIROCIN 2 % TOPICAL OINTMENT Apply 1 application to affect* PROMETHAZINE 25 MG TABLET Take 1 tablet by mouth every * INSULIN LISPRO (U-200) 200 UN* Inject subcutaneously 14 unit* Patient taking differently: 14 Units. Inject subcutaneous* LYRICA 100 MG CAPSULE TAKE 1 CAPSULE BY MOUTH THREE* CAPSAICIN 0.075 % TOPICAL CRE* Apply 1 application to affect* ULTICARE PEN NEEDLE 31 GAUGE * USE DIRECTED. TO INJECT IN* VITAMIN C 500 MG TABLET TAKE 1 TABLET BY MOUTH DAILY FERROUS GLUCONATE 324 MG (38 * TAKE 1 TABLET BY MOUTH DAILY * INSULIN GLARGINE (U-100) 100 * Inject 60 units subcutaneousl* STOOL SOFTENER 100 MG CAPSULE TAKE 1 CAPSULE BY MOUTH DAILY CLAUDIA-KYLE 8.6 MG TABLET TAKE 1 TABLET BY MOUTH TWICE * ISOSORBIDE MONONITRATE ER 60 * Take 1.5 tablets by mouth onc* ATORVASTATIN 40 MG TABLET TAKE 1 TABLET BY MOUTH DAILY DILTIAZEM SR 180 MG 24 HR CAP TAKE 1 CAPSULE BY MOUTH EVERY* LEVOTHYROXINE 100 MCG TABLET TAKE 1 TABLET BY MOUTH EVERY * OMEPRAZOLE 20 MG CAPSULE,MARIA EUGENIA* TAKE 1 CAPSULE BY MOUTH EVERY* ELIQUIS 2.5 MG TABLET TAKE 1 TABLET BY MOUTH TWICE * NITROGLYCERIN 0.4 MG SUBLINGU* DISSOLVE 1 TAB UNDER THE TONG* METOPROLOL TARTRATE 50 MG TAB* Take 1 tablet by mouth twice * GLUCOSE 4 GRAM CHEWABLE TABLET Take 4 tablets by mouth as ne* OXYGEN (HOME THERAPY) Inhale 3 L/min as instructed * FLUTICASONE 50 MCG/ACTUATION * Use 2 Sprays in each nostril * METFORMIN ER 500 MG TABLET,EX* Take 2 tablets by mouth twice* DULOXETINE 60 MG CAPSULE,MARIA EUGENIA* Take 1 capsule by mouth once * ASPIRIN 81 MG TABLET,DELAYED * Take 1 tablet by mouth every * FUROSEMIDE 40 MG TABLET Take 1 tablet by mouth twice * ALBUTEROL SULFATE HFA 90 MCG/* Inhale 2 Puffs as instructed * COMPOUNDED PRESCRIPTION Evaluation for diabetic shoes* BLOOD SUGAR DIAGNOSTIC STRIPS Use as directed to check bloo* LANCETS 33 GAUGE Use as directed to check bloo* INCONTINENCE PAD, LINER, DISP* 1 Device as needed (urinary i* COMPOUNDED PRESCRIPTION BLOOD PRESSURE CUFF FOR HOME * BLOOD-GLUCOSE METER KIT UAD to test blood sugar ALCOHOL SWABS UAD to clean skin before test* Problem List As Of Date 12/15/2017 Noted Resolved SUBJECTIVE TINNITUS [H93.19] INVALID FOR* Obstructive sleep apnea [G47.33] INVALID FOR* Hyperlipidemia [E78.5] INVALID FOR* Coronary disease [I25.10] INVALID FOR* Diabetes mellitus, type II (HCC) [E11.9] INVALID FOR* Morbid obesity (HCC) [E66.01] Hypothyroidism [E03.9] Anxiety [F41.9] Sleep apnea [G47.30] 02/14/2017 Essential hypertension [I10] Coronary artery disease of [place] artery of [place]* AF (paroxysmal atrial fibrillation) (HCC) [I48.* COPD (chronic obstructive pulmonary disease) (H* GERD without esophagitis [K21.9] Dysphagia [R13.10] Constipation [K59.00] DM type 2 (diabetes mellitus, type 2) ([facility]) [E1* 02/14/2017 Shortness of breath [R06.02] 02/14/2017 Arthritis [M19.90] More... CHF (congestive heart failure) ([facility]) [I50.9] BPPV (benign paroxysmal positional vertigo) [H8*INVALID FOR* RLS (restless legs syndrome) [G25.81] INVALID FOR* Iron deficiency concern: RE RLS [E61.1] INVALID FOR* Tubular adenoma [D36.9] INVALID FOR* Incontinence [R32] More... Gastroparesis [K31.84] INVALID FOR* Pre-op testing [Z01.818] INVALID FOR* More... Other instructions from your clinician: [facility] Patient Instructions for Surgery FOOD INSTRUCTIONS: NO solid food or liquids for 8 hours prior to the arrival time for your surgery (except a few sips to take your meds). MEDICATION INSTRUCTIONS: Prior to Surgery: Do not take the following medications for 7 days prior to surgery: - any NSAID's (e.g. Motrin, Aleve, Arthrotec, Naproxen,etc) - any herbal preparations Do not take any Vitamin E / multivitamins for 10-14 days before surgery You are allowed to take Tylenol if needed until the day of surgery. Please bring your inhalers and or CPAP/BiPAP machine and mask when you come for your surgery. Do NOT STOP YOUR ASPIRIN as you have a cardiac/coronary stent. Last dose of Eliquis should be 72 hours prior to surgery, that is last dose FridayDecember 15. MEDICATION INSTRUCTIONS: Day/Morning of Surgery: The following medications should be taken with sips of water: Aspirin, Cardizem (Diltiazem), Imdur, Metoprolol, Prilosec DIABETES MANAGEMENT INSTRUCTIONS: Eat a usual diet until the day prior to surgery unless indicated by your surgeon/physician. If your blood sugar is below 70 mg/dl at any time, treat with ? cup of apple juice or saul robert, or 4 glucose tabs or 1 tube of oral glucose gel. MEDICATION INSTRUCTIONS: Prior to Surgery: ? Continue all diabetic pills as scheduled including the evening prior to surgery. ? Continue your current injectable medications (eg: insulin, symlin, byetta, etc) as scheduled INCLUDING EVENING AND BEDTIME. ? Take Lantus 50 units the night prior to surgery. MEDICATION INSTRUCTIONS: Day/Morning of Surgery: ? Do not take your Diabetic pills. ? GLARGINE/LANTUS: Take half of your usual dose of Lantus Insulin (30 units) If you have any questions or concerns regarding today's visit please do not hesitate to contact the [facility] center at [phone] or [phone], ext [phone]. Signature: Lori Cline MD Date: December 15, 2017 Medications Discontinued During This Encounter acetaminophen (TYLENOL) 325 mg tablet 200 * 2 09/17/2016 12/15/2017 Route: ORAL Sig: Take 2 tablets by mouth every 6 hours as needed for Pain. Disc: Discontinued by Patient BIPAP 1 De* 0 03/04/2017 12/15/2017 Class: Print RX Sig: Bilevel PAP 15/11 cmH2O with 2 LPM oxygen bleed in, mask, tubing, filters, heated humidity, lifetime supplies. Please fax 30 day compliance download to [phone]. Dx: G47.33, G47.39. DME: [facility] Disc: Discontinued by Patient fluticasone-salmeterol (ADVAIR DISKU* 1 In* 5 07/31/2016 12/15/2017 Route: INHALATION Sig: Inhale 1 Puff as instructed twice daily. Disc: Discontinued by Patient pantoprazole DR (PROTONIX) 40 mg tab* 60 t* 0 12/15/2017 12/15/2017 Class: Print RX Route: ORAL Sig: Take 1 tablet by mouth twice daily at 6AM and 9PM. Disc: Reason for discontinue is not on file. Encounter Status:Closed by LORI CLINE MD on 12/15/17 PROGRESS Observed: 12/15/2017 Status: COMPLETED Source: RUSSELL 12:33 PM [facility] REPOSITORY HNO ID: [id number] Author: Lori Cline Service: (none) Author Type: Physician Type: Progress Notes Filed: 12/15/2017 1:42 PM Note Text: Tamia Panda is a 62 year old female here today for visit in [facility] Referring Surgeon: Dr. Connolly Date of Surgery: 12/19/2017 Planned Surgery/Procedure: ENDOSCOPIC PER-ORAL PYLOROMYOTOMY Allergies have been reviewed and verified. They include the following: Adhesive Tape (Rosins); Cats; Dogs; Orphenadrine; Ciprofloxacin; Keflex [Cephalexin]; Niacin; Niacin Preparations; Penicillin G; Penicillins; Reglan [Metoclopramide Hcl]; Xanthines Social History Substance Use Topics - Smoking status: Former Smoker Packs/day: 1.00 Years: 28.00 Types: Cigarettes Start date: 1978 Quit date: 09/22/2005 - Smokeless tobacco: Never Used Comment: Father smoked in childhood. 2nd spouse smoked in home. - Alcohol use No Medications reviewed and updated: Yes Zulma JULIAN Observed: 12/15/2017 Status: COMPLETED Source: RUSSELL 11:40 AM [facility] REPOSITORY Office Visit (GENBMI) TAMIA PANDA ([id number]) 1955 F Date Time Provider Department 12/15/17 11:40 AM JEFFERSON CONNOLLY During your visit today, we recorded the following information about you: Pulse Blood pressure Weight Height 83/minute 103/62 100.2 kg 1.575 m Shirley Vasquez Quinteros 12/15/2017 10:29 AM Signed Body mass index is 40.42 kg/(m2). Jefferson Connolly MD 12/25/2017 2:39 PM Signed [facility] DEPARTMENT OF SURGERY Jefferson Connolly MD [address] [place] [address] NAME: Tamia Panda CLINIC NO: [id number] DATE OF SERVICE: December 25, 2017 This is an initial consultation for Tamia Panda who was referred to me by Dr. Hanna for evaluation of medical refractory gastroparesis. My final recommendation will be communicated via shared electronic medical record. CHIEF COMPLAINT Gastroparesis HISTORY OF PRESENT ILLNESS Tamia Panda is a 62 year old female who comes in today for surgical evaluation for management of gastroparesis. She has been follow- ed by Dr. Hanna. A smart pill showed isolated gastroparesis. Her weight is stable at 220. Given the number of medication she is currently as well as the multiple medical issues Dr. Hanna felt it would be best for her to have a POP as she is limited in the medications that can be utilized. Also the QT has been prolonged on EKG. PAST HISTORY PAST MEDICAL HISTORY Diagnosis Date - Acute chronic obstructive pulmonary disease with respiratory failure ([facility]) - AF (paroxysmal atrial fibrillation) ([facility]) - Anxiety - Arthritis Seeing Dr Elliott - Cervical cancer ([facility]) hysterectomy - CHF (congestive heart failure) ([facility]) - Chronic back pain Seeing Dr. Wallace - Constipation - COPD (chronic obstructive pulmonary disease) ([facility]) - Coronary atherosclerosis of port lions coronary artery Previously seeing Dr. Sosa - DDD (degenerative disc disease), lumbar - DM type 2 (diabetes mellitus, type 2) ([facility]) Seeing Dr. Foley for podiatry - DVT (deep venous thrombosis) ([facility]) Post op INA, BSO. - Dysphagia Seeing Dr. Beaulieu - Emphysema lung ([facility]) - Essential hypertension - Functional dyspepsia - Gastroparesis 2016 mild - GERD without esophagitis - Headache - History of colon polyps 11/28/2016 - Hyperlipidemia - Hypothyroidism - Incontinence Seeing Dr. Chapman - Morbid obesity ([facility]) - Muscle weakness - Nausea - PAERSH on CPAP [facility], no longer using as of 10/2017, was not compliant - PE (pulmonary thromboembolism) ([facility]) Post op INA/BSO. - Pneumonia - RLS (restless legs syndrome) - Shortness of breath - Sleep apnea using oxygen currently, not on CPAP - Unsteadiness on feet - Wheezing PAST SURGICAL HISTORY Procedure Laterality Date - CHOLECYSTECTOMY - COLONOS W/REM POLYP SNARE 11/28/2016 Repeat 2019 - COLONOSCOPY Has had multiple in the past with polyps, cannot remember dates - [facility] W/BX 11/28/2016 - HERNIA REPAIR HX multiple - KNEE SURGERY HX Left x3 for torn cartilage - NASAL SURGERY PROCEDURE sinus - TOTAL ABDOM HYSTERECTOMY 1987 Cervical cancer - TUBAL LIGATION HX - WRIST SURGERY HX Right ganglion cyst removal x2 PHYSICAL EXAMINATION BP 103/62 (BP Site: Right Arm, BP Position: Sitting, BP Cuff Size: Large Adult) Pulse 83 Ht 157.5 cm (5' 2ANDquot;) Wt 100.2 kg (221 lb) SpO2 94% BMI 40.42 kg/m2 Well appearing and in NAD Abdomen soft, no tenderness and non distended Assessment ASSESSMENT 62 year old female with medical refractory gastroparesis. PLAN I discussed surgical therapy for gastroparesis in detail. Tamia Panda is candidate for the least invasive option with a peroral endoscopic pyloromyotomy as a gastric emptying procedure. The patient was educated on the risks including but not limited to bleeding, infection, perforation and the cardiopulmonary risks of anesthetic. The patient was also educated on the symptom success rate of 70% with the peroral endoscopic pyloromyotomy. The patient is aware of 30% possibility of no improvement in her symptoms. The patient is also aware that could be worsening of her symptoms. Patient was in agreement with this and will proceed with the POP procedure after receiving medical clearance for surgery. Thank you for allowing me to participate in the care of your patient. Jefferson Connolly MD Referring Provider: JEFFERSON CONNOLLY [[id number]] Allergies As of Date: 12/15/2017 Noted Allergy Reaction ADHESIVE TAPE (ROSINS) 04/04/2015 5 - Intolerance Comments: Surgical tape leaves rash Irritates skin badly and blisters along with medical tape CATS 04/10/2016 14 - Other: See Comments Comments: Congested and itchy, difficulty breathing DOGS 04/10/2016 14 - Other: See Comments Comments: Congestion, sneezing, and difficulty breathing ORPHENADRINE 04/10/2016 16 - Unknown CIPROFLOXACIN 12/11/2011 14 - Other: See Comments Comments: Red, hot, itchy rash KEFLEX (CEPHALEXIN) 07/10/2016 4 - Hives NIACIN 04/04/2015 16 - Unknown NIACIN PREPARATIONS 10/18/2004 PENICILLIN G 10/18/2004 PENICILLINS 04/04/2015 16 - Unknown REGLAN (METOCLOPRAMIDE HCL) 03/04/2017 14 - Other: See Comments Comments: Unable to sleep XANTHINES 10/18/2004 16 - Unknown Date Reviewed: 12/15/2017 Reviewed by: Tejal Armendariz RN - Fully Assessed Reason for Visit: Established Patient [175] Primary Visit Diagnosis:Gastroparesis [K31.84] Order(s):sucralfate (CARAFATE) 100 mg/mL suspensionTake 10 mL by mouth four times daily.Disp: 1200 mLRfl: 0 Prescriptions as of 12/15/2017 Sig: COMPOUNDED PRESCRIPTION OCD Titration for portable ox* MUPIROCIN 2 % TOPICAL OINTMENT Apply 1 application to affect* PROMETHAZINE 25 MG TABLET Take 1 tablet by mouth every * INSULIN LISPRO (U-200) 200 UN* Inject subcutaneously 14 unit* Patient taking differently: 14 Units. Inject subcutaneous* LYRICA 100 MG CAPSULE TAKE 1 CAPSULE BY MOUTH THREE* CAPSAICIN 0.075 % TOPICAL CRE* Apply 1 application to affect* ULTICARE PEN NEEDLE 31 GAUGE * USE DIRECTED. TO INJECT IN* VITAMIN C 500 MG TABLET TAKE 1 TABLET BY MOUTH DAILY FERROUS GLUCONATE 324 MG (38 * TAKE 1 TABLET BY MOUTH DAILY * INSULIN GLARGINE (U-100) 100 * Inject 60 units subcutaneousl* STOOL SOFTENER 100 MG CAPSULE TAKE 1 CAPSULE BY MOUTH DAILY CLAUDIA-KYLE 8.6 MG TABLET TAKE 1 TABLET BY MOUTH TWICE * ISOSORBIDE MONONITRATE ER 60 * Take 1.5 tablets by mouth onc* ATORVASTATIN 40 MG TABLET TAKE 1 TABLET BY MOUTH DAILY DILTIAZEM SR 180 MG 24 HR CAP TAKE 1 CAPSULE BY MOUTH EVERY* LEVOTHYROXINE 100 MCG TABLET TAKE 1 TABLET BY MOUTH EVERY * OMEPRAZOLE 20 MG CAPSULE,MARIA EUGENIA* TAKE 1 CAPSULE BY MOUTH EVERY* ELIQUIS 2.5 MG TABLET TAKE 1 TABLET BY MOUTH TWICE * NITROGLYCERIN 0.4 MG SUBLINGU* DISSOLVE 1 TAB UNDER THE TONG* METOPROLOL TARTRATE 50 MG TAB* Take 1 tablet by mouth twice * GLUCOSE 4 GRAM CHEWABLE TABLET Take 4 tablets by mouth as ne* OXYGEN (HOME THERAPY) Inhale 3 L/min as instructed * FLUTICASONE 50 MCG/ACTUATION * Use 2 Sprays in each nostril * METFORMIN ER 500 MG TABLET,EX* Take 2 tablets by mouth twice* DULOXETINE 60 MG CAPSULE,MARIA EUGENIA* Take 1 capsule by mouth once * ASPIRIN 81 MG TABLET,DELAYED * Take 1 tablet by mouth every * X BIPAP Bilevel PAP 15/11 cmH2O with * FUROSEMIDE 40 MG TABLET Take 1 tablet by mouth twice * ALBUTEROL SULFATE HFA 90 MCG/* Inhale 2 Puffs as instructed * COMPOUNDED PRESCRIPTION Evaluation for diabetic shoes* BLOOD SUGAR DIAGNOSTIC STRIPS Use as directed to check bloo* LANCETS 33 GAUGE Use as directed to check bloo* INCONTINENCE PAD, LINER, DISP* 1 Device as needed (urinary i* X ACETAMINOPHEN 325 MG TABLET Take 2 tablets by mouth every* COMPOUNDED PRESCRIPTION BLOOD PRESSURE CUFF FOR HOME * BLOOD-GLUCOSE METER KIT UAD to test blood sugar ALCOHOL SWABS UAD to clean skin before test* X FLUTICASONE 250 MCG-SALMETERO* Inhale 1 Puff as instructed t* SUCRALFATE 100 MG/ML ORAL GISELLE* Take 10 mL by mouth four time* X PANTOPRAZOLE 40 MG TABLET,DEL* Take 1 tablet by mouth twice * Problem List As Of Date 12/15/2017 Noted Resolved SUBJECTIVE TINNITUS [H93.19] INVALID FOR* Obstructive sleep apnea [G47.33] INVALID FOR* Hyperlipidemia [E78.5] INVALID FOR* Coronary disease [I25.10] INVALID FOR* Diabetes mellitus, type II ([facility]) [E11.9] INVALID FOR* Morbid obesity ([facility]) [E66.01] Hypothyroidism [E03.9] Anxiety [F41.9] Sleep apnea [G47.30] 02/14/2017 Essential hypertension [I10] Coronary artery disease of port lions artery of stoney* AF (paroxysmal atrial fibrillation) ([facility]) [I48.* COPD (chronic obstructive pulmonary disease) (H* GERD without esophagitis [K21.9] Dysphagia [R13.10] Constipation [K59.00] DM type 2 (diabetes mellitus, type 2) ([facility]) [E1* 02/14/2017 Shortness of breath [R06.02] 02/14/2017 Arthritis [M19.90] More... CHF (congestive heart failure) ([facility]) [I50.9] BPPV (benign paroxysmal positional vertigo) [H8*INVALID FOR* RLS (restless legs syndrome) [G25.81] INVALID FOR* Iron deficiency concern: RE RLS [E61.1] INVALID FOR* Tubular adenoma [D36.9] INVALID FOR* Incontinence [R32] More... Gastroparesis [K31.84] INVALID FOR* Pre-op testing [Z01.818] INVALID FOR* More... Visit Notes: >> Shirley Ovalle Neli Mon Dec 15, 2017 10:26 AM Status: Signed Body mass index is 40.42 kg/(m2). Prescriptions ordered this encounter Disp Refills Start End SUCRALFATE 100 MG/ML ORAL SUSPENSION 1200* 0 12/15/2017 01/14/2018 Class: Print RX Route: ORAL Sig: Take 10 mL by mouth four times daily. PANTOPRAZOLE 40 MG TABLET,DELAYED RE* 60 t* 0 12/15/2017 12/15/2017 Class: Print RX Route: ORAL Sig: Take 1 tablet by mouth twice daily at 6AM and 9PM. Encounter Status:Closed by JEFFERSON CONNOLLY MD on 12/25/17 CNNURSE Observed: 12/15/2017 Status: COMPLETED Source: RUSSELL 11:00 AM [facility] REPOSITORY Nurse Visit (GENBMI) TAMIA PANDA ([id number]) 1955 F Date Time Provider Department 12/15/17 11:00 AM NURSE BMI GENBMI During your visit today, we recorded the following information about you: Nafisa Subramanian, RN, RN 12/15/2017 3:32 PM Signed AMBULATORY PATIENT EDUCATION NOTE TOPIC: LIFE STYLE CHANGES: Diet, Disease Education, Exercise and Safety Precautions READINESS TO LEARN COGNITIVE ABILITY: Alert and oriented MOTIVATION TO LEARN: Eager FAMILY SUPPORT: Unable to assess - Family not present INSTRUCTION PROVIDED TO: Patient PATIENT LEARNS BEST BY: Multiple Methods FACTORS AFFECTING LEARNING: None PHYSICAL LIMITATIONS AFFECTING LEARNING: Limited Mobility LEARNING RESPONSE DIAGNOSIS: Gastroparesis, pre op teaching r/t endoscopic per oral pyloromyotomy METHOD OF INSTRUCTION: Individual instruction Written instruction - handouts Verbal instruction PATIENT / FAMILY RESPONSE: Verbalizes understanding of: MEDICAL REGIMEN-Importance of following prescribed medical regimen PRE-OPERATIVE INSTRUCTIONS-Correct action to take to follow pre-operative instructions PATIENT SAFETY PRINCIPLES SYMPTOM MANAGEMENT-Correct actions to take to manage symptoms associated with his/her disease/illness WORSENING CONDITION-Signs and symptoms of a worsening condition that warrant a call to the physician FOLLOW-UP PLAN: Contact information given. SUPPLEMENTAL MATERIAL: Your Surgical Guide REFERRAL (RECOMMENDATION): None Electronically Signed By: Nafisa Subramanian RN In Department: GENERAL SURGERY Nafisa Subramanian RN, RN 12/15/2017 3:41 PM Signed . Referring Provider: JEFFERSON CONNOLLY [[id number]] Allergies As of Date: 12/15/2017 Noted Allergy Reaction ADHESIVE TAPE (ROSINS) 04/04/2015 5 - Intolerance Comments: Surgical tape leaves rash Irritates skin badly and blisters along with medical tape CATS 04/10/2016 14 - Other: See Comments Comments: Congested and itchy, difficulty breathing DOGS 04/10/2016 14 - Other: See Comments Comments: Congestion, sneezing, and difficulty breathing ORPHENADRINE 04/10/2016 16 - Unknown CIPROFLOXACIN 12/11/2011 14 - Other: See Comments Comments: Red, hot, itchy rash KEFLEX (CEPHALEXIN) 07/10/2016 4 - Hives NIACIN 04/04/2015 16 - Unknown NIACIN PREPARATIONS 10/18/2004 PENICILLIN G 10/18/2004 PENICILLINS 04/04/2015 16 - Unknown REGLAN (METOCLOPRAMIDE HCL) 03/04/2017 14 - Other: See Comments Comments: Unable to sleep XANTHINES 10/18/2004 16 - Unknown Date Reviewed: 12/15/2017 Reviewed by: Tejal Armendariz RN - Fully Assessed Primary Visit Diagnosis:Gastroparesis [K31.84] Prescriptions as of 12/15/2017 Sig: COMPOUNDED PRESCRIPTION OCD Titration for portable ox* MUPIROCIN 2 % TOPICAL OINTMENT Apply 1 application to affect* PROMETHAZINE 25 MG TABLET Take 1 tablet by mouth every * INSULIN LISPRO (U-200) 200 UN* Inject subcutaneously 14 unit* Patient taking differently: 14 Units. Inject subcutaneous* LYRICA 100 MG CAPSULE TAKE 1 CAPSULE BY MOUTH THREE* CAPSAICIN 0.075 % TOPICAL CRE* Apply 1 application to affect* ULTICARE PEN NEEDLE 31 GAUGE * USE DIRECTED. TO INJECT IN* VITAMIN C 500 MG TABLET TAKE 1 TABLET BY MOUTH DAILY FERROUS GLUCONATE 324 MG (38 * TAKE 1 TABLET BY MOUTH DAILY * INSULIN GLARGINE (U-100) 100 * Inject 60 units subcutaneousl* STOOL SOFTENER 100 MG CAPSULE TAKE 1 CAPSULE BY MOUTH DAILY CLAUDIA-KYLE 8.6 MG TABLET TAKE 1 TABLET BY MOUTH TWICE * ISOSORBIDE MONONITRATE ER 60 * Take 1.5 tablets by mouth onc* ATORVASTATIN 40 MG TABLET TAKE 1 TABLET BY MOUTH DAILY DILTIAZEM SR 180 MG 24 HR CAP TAKE 1 CAPSULE BY MOUTH EVERY* LEVOTHYROXINE 100 MCG TABLET TAKE 1 TABLET BY MOUTH EVERY * OMEPRAZOLE 20 MG CAPSULE,MARIA EUGENIA* TAKE 1 CAPSULE BY MOUTH EVERY* ELIQUIS 2.5 MG TABLET TAKE 1 TABLET BY MOUTH TWICE * NITROGLYCERIN 0.4 MG SUBLINGU* DISSOLVE 1 TAB UNDER THE TONG* METOPROLOL TARTRATE 50 MG TAB* Take 1 tablet by mouth twice * GLUCOSE 4 GRAM CHEWABLE TABLET Take 4 tablets by mouth as ne* OXYGEN (HOME THERAPY) Inhale 3 L/min as instructed * FLUTICASONE 50 MCG/ACTUATION * Use 2 Sprays in each nostril * METFORMIN ER 500 MG TABLET,EX* Take 2 tablets by mouth twice* DULOXETINE 60 MG CAPSULE,MARIA EUGENIA* Take 1 capsule by mouth once * ASPIRIN 81 MG TABLET,DELAYED * Take 1 tablet by mouth every * FUROSEMIDE 40 MG TABLET Take 1 tablet by mouth twice * ALBUTEROL SULFATE HFA 90 MCG/* Inhale 2 Puffs as instructed * COMPOUNDED PRESCRIPTION Evaluation for diabetic shoes* BLOOD SUGAR DIAGNOSTIC STRIPS Use as directed to check bloo* LANCETS 33 GAUGE Use as directed to check bloo* INCONTINENCE PAD, LINER, DISP* 1 Device as needed (urinary i* COMPOUNDED PRESCRIPTION BLOOD PRESSURE CUFF FOR HOME * BLOOD-GLUCOSE METER KIT UAD to test blood sugar ALCOHOL SWABS UAD to clean skin before test* Problem List As Of Date 12/15/2017 Noted Resolved SUBJECTIVE TINNITUS [H93.19] INVALID FOR* Obstructive sleep apnea [G47.33] INVALID FOR* Hyperlipidemia [E78.5] INVALID FOR* Coronary disease [I25.10] INVALID FOR* Diabetes mellitus, type II ([facility]) [E11.9] INVALID FOR* Morbid obesity ([facility]) [E66.01] Hypothyroidism [E03.9] Anxiety [F41.9] Sleep apnea [G47.30] 02/14/2017 Essential hypertension [I10] Coronary artery disease of port lions artery of stoney* AF (paroxysmal atrial fibrillation) ([facility]) [I48.* COPD (chronic obstructive pulmonary disease) (H* GERD without esophagitis [K21.9] Dysphagia [R13.10] Constipation [K59.00] DM type 2 (diabetes mellitus, type 2) ([facility]) [E1* 02/14/2017 Shortness of breath [R06.02] 02/14/2017 Arthritis [M19.90] More... CHF (congestive heart failure) ([facility]) [I50.9] BPPV (benign paroxysmal positional vertigo) [H8*INVALID FOR* RLS (restless legs syndrome) [G25.81] INVALID FOR* Iron deficiency concern: RE RLS [E61.1] INVALID FOR* Tubular adenoma [D36.9] INVALID FOR* Incontinence [R32] More... Gastroparesis [K31.84] INVALID FOR* Pre-op testing [Z01.818] INVALID FOR* More... Visit Notes: >> Nafisa (Nina) NINA Subramanian FriDec 15, 2017 3:27 PM Status: Signed AMBULATORY PATIENT EDUCATION NOTE TOPIC: LIFE STYLE CHANGES: Diet, Disease Education, Exercise and Safety Precautions READINESS TO LEARN COGNITIVE ABILITY: Alert and oriented MOTIVATION TO LEARN: Eager FAMILY SUPPORT: Unable to assess - Family not present INSTRUCTION PROVIDED TO: Patient PATIENT LEARNS BEST BY: Multiple Methods FACTORS AFFECTING LEARNING: None PHYSICAL LIMITATIONS AFFECTING LEARNING: Limited Mobility LEARNING RESPONSE DIAGNOSIS: Gastroparesis, pre op teaching r/t endoscopic per oral pyloromyotomy METHOD OF INSTRUCTION: Individual instruction Written instruction - handouts Verbal instruction PATIENT / FAMILY RESPONSE: Verbalizes understanding of: MEDICAL REGIMEN-Importance of following prescribed medical regimen PRE-OPERATIVE INSTRUCTIONS-Correct action to take to follow pre-operative instructions PATIENT SAFETY PRINCIPLES SYMPTOM MANAGEMENT-Correct actions to take to manage symptoms associated with his/her disease/illness WORSENING CONDITION-Signs and symptoms of a worsening condition that warrant a call to the physician FOLLOW-UP PLAN: Contact information given. SUPPLEMENTAL MATERIAL: Your Surgical Guide REFERRAL (RECOMMENDATION): None Electronically Signed By: Nafisa Subramanian RN In Department: GENERAL SURGERY Encounter Status:Closed by NAFISA SUBRAMANIAN on 12/15/17 CONFIRM BLOOD TYPE Collected: 12/15/2017 Status: F Source: RUSSELL 9:40 AM [facility] REPOSITORY TYPE CODE TESTS RESULT OUT OF REFERENCE UNITS RANGE LAB %ABR A ABO/RH(D) POSITIVE Performed By: #### CONABO #### [facility] [address] [place], [place] [address] PROTIME Collected: 12/15/2017 Status: F Source: RUSSELL 9:25 AM [facility] REPOSITORY TYPE CODE TESTS RESULT OUT OF RANGE REFERENCE UNITS LAB PSEC 9.7-13.0 sec PT Sec 10.4 LAB INR 0.9-1.3 PT INR 1.0 Result Comment: Vitamin K Antagonist (VKA) Therapeutic Range: INR 2 to 3 (Target INR of 2.5) Note: For patients treated with VKA drugs, such as warfarin, the [place] [employer] 2012 Guideline recommends a therapeutic INR range of 2 to 3 (target INR of 2.5). This recommendation includes high-risk patients with antiphospholipid syndrome with previous arterial or venous thromboembolism, current-generation mechanical or bioprosthetic aortic heart valve replacement. Note: Patients with mechanical aortic valve replacement and additional risk factors for thromboembolic events (atrial fibrillation, previous thromboembolism, LV dysfunction, hypercoagulable conditions) or an older generation mechanical AVR (i.e., ball in-Cage) or any mechanical MVR should have a INR therapeutic range of 2.5 to 3.5 (target INR of 3). Yasmin GH, et al. Chest 2012, 141:7S-47S Marcial RA, et al. [facility] 2017, 70: 252-289 Performed By: #### PT, PTT, CBCDIF, CMP #### [facility] [employer] [place] [id number] APTT Collected: 12/15/2017 Status: F Source: RUSSELL 9:25 AM [facility] REPOSITORY TYPE CODE TESTS RESULT OUT OF RANGE REFERENCE UNITS LAB APTT 23.0-32.4 sec APTT 25.9 Result Comment: Unfractionated Heparin Therapeutic Ranges: Standard Heparin Nomogram: 53 to 78 seconds (anti-Xa level of 0.3 to 0.7 U/ml) Low Dose/ACS Nomogram: 49 to 67 seconds (anti-Xa level of 0.2 to 0.5 U/ml) Stroke Treatment Nomogram: 49 to 67 seconds (anti-Xa level of 0.2 to 0.5 U/ml) Note: The APTT therapeutic range has been determined for the current lot of laboratory APTT reagent in use throughout the [facility]. Performed By: #### PT, PTT, CBCDIF, CMP #### [facility] [address] [place], [place] [address] CBC AND DIFFERENTIAL Collected: 12/15/2017 Status: F Source: RUSSELL 9:25 AM [facility] REPOSITORY TYPE CODE TESTS RESULT OUT OF REFERENCE UNITS RANGE LAB WBC 3.70-11.00 k/uL WBC 6.60 LAB RBC 3.90-5.20 m/uL RBC 4.24 LAB HGB 11.5-15.5 g/dL Hemoglobin 12.8 LAB HCT 36.0-46.0 % Hematocrit 42.5 LAB MCV 80.0-100.0 fL MCV High 100.2 LAB MCH 26.0-34.0 pG MCH 30.2 LAB MCHC 30.5-36.0 g/dL Low MCHC 30.1 LAB RDWCV 11.5-15.0 % RDW-CV High 15.3 LAB PLTCT 150-400 k/uL Platelet Count 246 LAB MPV 9.0-12.7 fL MPV 11.0 LAB ANEUT % Neut% 65.9 LAB AANEUT 1.45-7.50 k/uL Abs Neut 4.35 LAB ALYMP % Lymph% 17.4 LAB AALYMP 1.00-4.00 k/uL Abs Lymph 1.15 LAB AMONO % Bethel% 11.7 LAB AAMONO <0.87 k/uL Abs Bethel 0.77 LAB AEOS % Eosin% 4.5 LAB AAEOS <0.46 k/uL Abs Eosin 0.30 LAB ABASO % Baso% 0.5 LAB AABASO <0.11 k/uL Abs Baso 0.03 LAB AUNRBC 0 /100 WBC NRBCs 0.0 LAB ABNRBC <0.01 k/uL Absolute nRBC <0.01 LAB DTYP DTYPE Auto Diff Performed By: #### PT, PTT, CBCDIF, CMP #### [place] [id number] COMP METABOLIC PANEL Collected: 12/15/2017 Status: F Source: RUSSELL 9:25 AM [facility] REPOSITORY TYPE CODE TESTS RESULT OUT OF REFERENCE UNITS RANGE LAB TP 6.3-8.0 g/dL Protein, Total 7.0 LAB ALB 3.9-4.9 g/dL Albumin 4.1 LAB CA 8.5-10.2 mg/dL Calcium, Total 9.3 LAB TBIL 0.2-1.3 mg/dL Bilirubin, Total 0.5 LAB ALKP 32-117 U/L Alkaline Phosphatase 38 LAB AST 13-35 U/L AST 14 LAB GLU 74-99 mg/dL Glucose High 110 Result Comment: The [place] Diabetes Association (ADA) provides guidance for cutoff values for fasting glucose and random glucose. The ADA defines fasting as no caloric intake for at least 8 hours. Fas ting plasma glucose results between 100 to 125 mg/dL indicate increased risk for diabetes (prediabetes). Fasting plasma glucose results greater than or equal to 126 mg/dL meet the criteria for diagnosis of diabetes. In the absence of unequivocal hyperglycemia, results should be confirmed by repeat testing. In a patient with classic symptoms of hyperglycemia or hyperglycemic crisis, random plasma glucose results greater than or equal to 200 mg/dL meet the criteria for diagnosis of diabetes. Reference: Standards of Medical Care in Diabetes 2016, [place] [employer] Association. Diabetes Care. 2016.39(Suppl 1). LAB BUN 7-21 mg/dL BUN 16 LAB CRET 0.58-0.96 mg/dL Creatinine High 1.11 LAB NA 136-144 mmol/L Sodium High 145 LAB K 3.7-5.1 mmol/L Potassium 4.6 LAB CL 97-105 mmol/L Chloride 99 LAB CO2 22-30 mmol/L CO2 High 33 LAB AGAP 9-18 mmol/L Anion Gap 13 LAB ALT 7-38 U/L ALT 11 LAB GFRAA eGFR- Amer. >60 LAB GFRNAA . eGFR-All Other Races 50 Result Comment: eGFR (Estimated GFR) Units of measure: mL/min/1.73 meters squared eGFR is derived from the reexpressed MDRD Study equation using the following parameters: serum creatinine, age, gender and race. The creatinine assay has been calibrated to be traceable to IDMS. An eGFR <60 mL/min/1.73m2 for >3 months is consistent with chronic kidney disease. Refer to KDOQI guidelines for clinical interpretation. In patients with unstable renal function, e.g. those with acute kidney injury, the eGFR may not accurately reflect actual GFR. Performed By: #### PT, PTT, CBCDIF, CMP #### [facility] [address] [place], [place] [address] TYPE AND SCR (30D) Collected: 12/15/2017 Status: F Source: RUSSELL 9:25 AM [facility] REPOSITORY TYPE CODE TESTS RESULT OUT OF REFERENCE UNITS RANGE LAB %ABR A ABO/RH(D) POSITIVE LAB % Antibody NEG Screen Performed By: #### [id number] #### [facility] [address] [place], [place] [address] PROGRESS Observed: 12/12/2017 Status: COMPLETED Source: RUSSELL 12:00 PM [facility] REPOSITORY HNO ID: [id number] Author: Saad Allen) Larry Service: (none) Author Type: Registered Nurse Type: Progress Notes Filed: 12/12/2017 12:30 PM Note Text: TC to patient, informed [facility] doesn't carry oxygen supplies and [place] cannot get the smaller Indogen concentrator. Asked pt to call [facility] CM and ask her if there is another company we can contact to get the smaller concentrator. If CM has questions pt should give her PCC's number, verbalized agreement. Saad Silvestre RN December 12, 2017 12:30 PM TC to Jenny at [facility] asked about Indogen concentrators they carry. Jenny verified they only carry the portable concentrator that weighs about 5 lbs. They are not able to special order the 2.8 lb concentrator that is advertised on tv. Saad Silvestre RN December 12, 2017 12:14 PM TC to Yancy at [facility], states they do not carry any oxygen products. Saad Silvestre RN December 12, 2017 11:55 PM PROGRESS Observed: 12/12/2017 Status: COMPLETED Source: RUSSELL 11:50 AM [facility] REPOSITORY HNO ID: [id number] Author: Saad Allen) Larry Service: (none) Author Type: Registered Nurse Type: Progress Notes Filed: 12/12/2017 12:00 PM Note Text: PRIMARY CARE COORDINATION IN OFFICE VISIT WITH PCP LATE ENTRY FOR 12/11/17 Patient has been identified by name and date of . PCP Assessment/Plan: Reviewed PCP plan with patient using [employer] Discussed pt unable to get 2 lb Indogen oxygen machine from [facility], pt requesting PCC call [facility] and see if she can get smaller Indogen machine from them. PCC Plan of Care: Patient concerns: Pt having difficulty carrying portable oxygen tank because it is too heavy Next Office Visit: 12/11/2017 Plan For Next Call: One day Saad Silvestre RN December 12, 2017 LIPID PANEL, BASIC Collected: 12/11/2017 Status: F Source: RUSSELL 3:53 PM [facility] REPOS[facility]ORY TYPE CODE TESTS RESULT OUT OF REFERENCE UNITS RANGE LAB CHOL <200 mg/dL Cholesterol 160 Result Comment: <200 mg/dL, Desirable 200-239 mg/dL, Borderline high >239 mg/dL, High LAB TRIGLY <150 mg/dL Triglyceride High 238 Result Comment: <150 mg/dL, Normal 150-199 mg/dL, Borderline high 200-499 mg/dL, High >499 mg/dL, Very high LAB HDL >39 mg/dL HDL-Cholesterol Low 36 Result Comment: 40-59 mg/dL, Acceptable >59 mg/dL, High: Negative risk factor for coronary heart disease <40 mg/dL, Low: Positive risk factor for coronary heart disease LAB LDL <100 mg/dL LDL-Cholesterol 76 Result Comment: <100 mg/dL, Optimal 100-129 mg/dL, Near optimal/above optimal 130-159 mg/dL, Borderline high 160-189 mg/dL, High >189 mg/dL, Very high Secondary prevention optimal LDL Cholesterol levels are recommended to be < 70 mg/dL LAB NONHDL <130 mg/dL Non HDL Cholesterol 124 Result Comment: <130 mg/dL, Optimal 130-159 mg/dL, Near optimal/above optimal 160-189 mg/dL, Borderline high 190-219 mg/dL, High >219 mg/dL, Very high Secondary prevention optimal non HDL Cholesterol levels are recommended to be < 100 mg/dL LAB FT hrs Fasting Time 0 LAB VLDL <30 mg/dL High VLDL Cholesterol 48 LAB TCHDL <5.10 TC:HDL Ratio 4.44 LAB LDLHDL <2.54 LDL:HDL Ratio 2.11 Result Comment: Reference: 1. National Cholesterol Education Program ATP III Guideline At-A-Glance Quick Desk Reference: National Heart, Lung, and Blood [place]. National Institutes of Health. 2001: NIH Publication No. 01-3305. 2. An International Atherosclerosis Society position paper: global recommendations for the management of dyslipidemia: executive summary, Atherosclerosis. 2014: 232(2):410-413. Performed By: #### LIPB, HBA1C #### [facility] [address] [place], [place] [address] HEMOGLOBIN A1C Collected: 12/11/2017 Status: F Source: RUSSELL 3:53 PM [facility] [place] REPOSITORY TYPE CODE TESTS RESULT OUT OF REFERENCE UNITS RANGE LAB HGBA1C 4.3-5.6 % High Hemoglobin A1c 6.3 LAB HBA0 mg/dL Est. Average Glucose 134 Result Comment: eAG: (Estimated average glucose) is a calculated value from HgbA1c and is software sales representative of the average blood glucose level in the last 2-3 month period. Performed By: #### LIPB, HBA1C #### [facility] [address] [place], [place] [address] PROGRESS Observed: 12/11/2017 Status: COMPLETED Source: RUSSELL 3:16 PM [facility] REPOSITORY HNO ID: [id number] Author: Chris (Camp Assistant) NAPOLEON Oconnell.DATA INPUT CLERK Service: (none) Author Type: Nurse Practitioner Type: Progress Notes Filed: 12/11/2017 3:42 PM Note Text: 12/11/2017 Patient presents with: 2 week F/U: cellulitis SUBJECTIVE: This is a 62 year old that is here today for follow up cellulitis. She states that she finished the course of antibiotic and no concerns while on it. She continues to use the topical ointment twice a day. Denies fever or chills, pain, swelling, drainage, streaking, warmth, or any concerns with the healing. She states that it is healing well and is not a scab. Discussed home O2. She states that she spoke with the home care company [facility] and they told her that the home O2 that she was hoping to have is not what they carry. She was hoping that they had the 2 lb version, but the one that they have is 5 lb and needs to be charged often. She is wondering if Saad Silvestre can help to look into seeing if [facility] can help with this. PAST MEDICAL HISTORY Diagnosis Date - Acute chronic obstructive pulmonary disease with respiratory failure (HCC) - AF (paroxysmal atrial fibrillation) (HCC) - Anxiety - Arthritis Seeing Dr Elliott - Cervical cancer (HCC) hysterectomy - CHF (congestive heart failure) ([facility]) - Chronic back pain Seeing Dr. Wallace - Constipation - COPD (chronic obstructive pulmonary disease) ([facility]) - Coronary atherosclerosis of port lions coronary artery Previously seeing Dr. Sosa - DDD (degenerative disc disease), lumbar - DM type 2 (diabetes mellitus, type 2) ([facility]) Seeing Dr. Foley for podiatry - DVT (deep venous thrombosis) ([facility]) Post op INA, BSO. - Dysphagia Seeing Dr. Beaulieu - Emphysema lung ([facility]) - Essential hypertension - Functional dyspepsia - Gastroparesis 2017 mild - GERD without esophagitis - Headache - History of colon polyps 11/28/2016 - Hyperlipidemia - Hypothyroidism - Incontinence Seeing Dr. Chapman - Morbid obesity ([facility]) - Muscle weakness - Nausea - [facility] no [facility] using as of 10/2017, was not compliant - PE (pulmonary thromboembolism) ([facility]) Post op INA/BSO. - Pneumonia - RLS (restless legs syndrome) - Shortness of breath - Sleep apnea using oxygen currently, not on CPAP - Unsteadiness on feet - Wheezing ALLERGIES Adhesive Tape (Rosins); Cats; Dogs; Orphenadrine; Ciprofloxacin; Keflex [Cephalexin]; Niacin; Niacin Preparations; Penicillin G; Penicillins; Reglan [Metoclopramide Hcl]; Xanthines MEDICATIONS Current Outpatient Prescriptions: COMPOUNDED PRESCRIPTION OCD Titration for portable oxygen concentrator Oxygen Flow Rate between 2-6 liters. To keep oxygen saturation at or above 92%. mupirocin (BACTROBAN) 2 % ointment Apply 1 application to affected area three times daily. promethazine (PHENERGAN) 25 mg tablet Take 1 tablet by mouth every 6 hours as needed. insulin lispro (HUMALOG KWIKPEN INSULIN) 200 unit/mL (3 mL) injection Inject subcutaneously 14 units with breakfast, 22 units with lunch, and 24 units with dinner LYRICA 100 mg capsule TAKE 1 CAPSULE BY MOUTH THREE TIMES A DAY capsaicin (ZOSTRIX-HP) 0.075 % topical cream Apply 1 application to affected area four times daily. ULTICARE PEN NEEDLE 31 gauge x 5/16 ndle USE DIRECTED. TO INJECT INSULINS VITAMIN C 500 mg tablet TAKE 1 TABLET BY MOUTH DAILY Ferrous Gluconate (FERGON) 324 mg (38 mg iron) tablet TAKE 1 TABLET BY MOUTH DAILY WITH BREAKFAST insulin glargine (LANTUS SOLOSTAR) 100 unit/mL (3 mL) inpn Inject 60 units subcutaneously twice daily STOOL SOFTENER 100 mg capsule TAKE 1 CAPSULE BY MOUTH DAILY CLAUDIA-KYLE 8.6 mg tab TAKE 1 TABLET BY MOUTH TWICE A DAY isosorbide mononitrate ER (IMDUR) 60 mg 24 hr tablet Take 1.5 tablets by mouth once daily. In the morning atorvastatin (LIPITOR) 40 mg tablet TAKE 1 TABLET BY MOUTH DAILY diltiazem CD (CARDIZEM CD, CARTIA XT) 180 mg 24 hr capsule TAKE 1 CAPSULE BY MOUTH EVERY MORNING levothyroxine (SYNTHROID) 100 mcg tablet TAKE 1 TABLET BY MOUTH EVERY MORNING omeprazole (PRILOSEC) 20 mg capsule TAKE 1 CAPSULE BY MOUTH EVERY MORNING ELIQUIS 2.5 mg tab tab(s) TAKE 1 TABLET BY MOUTH TWICE A DAY nitroglycerin sublingual (NITROQUICK) 0.4 mg SL tablet DISSOLVE 1 TAB UNDER THE TONGUE NEEDED FOR CHEST PAIN EVERY 5 MINUTES UP TO 3 TIMES. IF NO RELIEF CALL 911. metoprolol tartrate, short acting, (LOPRESSOR) 50 mg tablet Take 1 tablet by mouth twice daily. glucose 4 gram chewable tablet Take 4 tablets by mouth as needed for Low Blood Sugar. OXYGEN, HOME THERAPY, Inhale 3 L/min as instructed as directed. fluticasone (FLONASE) 50 mcg/actuation nasal spray Use 2 Sprays in each nostril once daily. metFORMIN ER (GLUCOPHAGE XR) 500 mg 24 hr tablet Take 2 tablets by mouth twice daily. DULoxetine (CYMBALTA) 60 mg capsule Take 1 capsule by mouth once daily. aspirin, enteric coated (ASPIRIN, ENTERIC COATED) 81 mg EC tablet Take 1 tablet by mouth every morning. BIPAP Bilevel PAP 15/11 cmH2O with 2 LPM oxygen bleed in, mask, tubing, filters, heated humidity, lifetime supplies. Please fax 30 day compliance download to [phone]. Dx: G47.33, G47.39. DME: [facility] furosemide (LASIX) 40 mg tablet Take 1 tablet by mouth twice daily. albuterol HFA (VENTOLIN HFA) 90 mcg/actuation inhaler Inhale 2 Puffs as instructed every 4 hours as needed for Wheezing/Shortness of Breath. COMPOUNDED PRESCRIPTION Evaluation for diabetic shoes and inserts Dx: E11.65, Z79.4 blood sugar diagnostic (ONETOUCH ULTRA TEST) test strip Use as directed to check blood sugar 4-5 times daily DX: E11.65 Insulin: yes DM: yes lancets (ONE TOUCH DELICA) 33 gauge misc Use as directed to check blood sugar 4-5 times daily DX: E11.65 Insulin: yes DM: yes Incontinence Pad, Liner, Disp pads 1 Device as needed (urinary incontinence). Prevail incontinence pads. Dx: urinary incontinence. Size: small acetaminophen (TYLENOL) 325 mg tablet Take 2 tablets by mouth every 6 hours as needed for Pain. Blood Pressure Cuff - Home Use BLOOD PRESSURE CUFF FOR HOME USE. DX: LABILE BLOOD PRESSURE Blood-Glucose Meter (ONETOUCH ULTRA2) monitoring kit UAD to test blood sugar Alcohol Swabs padm UAD to clean skin before testing blood sugar and injecting insulins. fluticasone-salmeterol (ADVAIR DISKUS) 250-50 mcg/dose dsdv Inhale 1 Puff as instructed twice daily. No current facility-administered medications for this visit. Medications and allergies reviewed by this provider. 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 Social History Main Topics Smoking status: Former Smoker Packs/day: 1.00 Years: 28.00 Types: Cigarettes Start date: 1978 Quit date: 09/22/2005 Smokeless status: Never Used Comment: Father smoked in childhood. 2nd spouse smoked in home. Alcohol use: No Drug use: No Sexual activity: No Social History Narrative 1 year in current home. No basement, 1 parakeet. Room A/C. Electric baseboard heat. REVIEW OF SYSTEMS RESPIRATORY: Negative for worsening cough, hemoptysis, wheezing, COPD, dyspnea or shortness of breath. Wearing home O2 CARDIOVASCULAR: Negative for chest pain, leg swelling, hypertension, CHF or palpitations SKIN: See HPI OBJECTIVE: BP 118/80 (BP Site: Left Arm, BP Position: Sitting, BP Cuff Size: Large Adult) Pulse 70 Temp 36.8 ?C (98.2 ?F) (Right Tympanic) Resp 16 Wt 99.8 kg (220 lb) SpO2 94% BMI 40.24 kg/m2. Vital signs reviewed by this provider. PHYSICAL EXAMINATION: General appearance: Well appearing, alert, in no acute distress, well-hydrated, well nourished. Skin: Skin color, texture, turgor normal, no suspicious rashes or lesions, previous open area is covered with a dark scab. No drainage, erythema, no pain. Lungs: Lungs clear to auscultation. No wheezing, rhonchi, rales Heart: RRR without murmur, gallop, or rubs. No ectopy Extremities: See skin. No deformities, edema, skin discoloration, clubbing or cyanosis. Good capillary refill. ASSESSMENT/PLAN: 1. Cellulitis of skin - ICD9: 682.9, ICD10: L03.90 - Healing well - ok to continue with topical ointment until scab falls off - continue to keep area clean and dry - discussed red flag symptoms and encouraged to follow up if experiencing any Encouraged to get labs done previously ordered. Spoke with Saad Silvestre regarding home O2 request. Chris Oconnell APRN.CNP CNOV Observed: 12/11/2017 Status: COMPLETED Source: RUSSELL 3:00 PM [facility] REPOSITORY Office Visit (FAMPWS) TAMIA PANDA ([id number]) 1955 F Date Time Provider Department 12/11/17 3:00 PM CHRIS OCONNELL (LM) FAMPWS During your visit today, we recorded the following information about you: Temperature Pulse Respiration Blood pressure 98.2 degrees 70/minute 16/minute 118/80 Weight 99.8 kg Chris Oconnell APRN.CNP, APRN.CNP 12/11/2017 3:42 PM Signed 12/11/2017 Patient presents with: 2 week F/U: cellulitis SUBJECTIVE: This is a 62 year old that is here today for follow up cellulitis. She states that she finished the course of antibiotic and no concerns while on it. She continues to use the topical ointment twice a day. Denies fever or chills, pain, swelling, drainage, streaking, warmth, or any concerns with the healing. She states that it is healing well and is not a scab. Discussed home O2. She states that she spoke with the home care company [facility] and they told her that the home O2 that she was hoping to have is not what they carry. She was hoping that they had the 2 lb version, but the one that they have is 5 lb and needs to be charged often. She is wondering if Saad Silvestre can help to look into seeing if [facility] can help with this. PAST MEDICAL HISTORY Diagnosis Date - Acute chronic obstructive pulmonary disease with respiratory failure ([facility]) - AF (paroxysmal atrial fibrillation) ([facility]) - Anxiety - Arthritis Seeing Dr Elliott - Cervical cancer ([facility]) hysterectomy - CHF (congestive heart failure) ([facility]) - Chronic back pain Seeing Dr. Wallace - Constipation - COPD (chronic obstructive pulmonary disease) ([facility]) - Coronary atherosclerosis of port lions coronary artery Previously seeing Dr. Sosa - DDD (degenerative disc disease), lumbar - DM type 2 (diabetes mellitus, type 2) ([facility]) Seeing Dr. Foley for podiatry - DVT (deep venous thrombosis) ([facility]) Post op INA, BSO. - Dysphagia Seeing Dr. Beaulieu - Emphysema lung ([facility]) - Essential hypertension - Functional dyspepsia - Gastroparesis 2017 mild - GERD without esophagitis - Headache - History of colon polyps 11/28/2016 - Hyperlipidemia - Hypothyroidism - Incontinence Seeing Dr. Chapman - Morbid obesity ([facility]) - Muscle weakness - Nausea - PARESH on CPAP [facility], no longer using as of 10/2017, was not compliant - PE (pulmonary thromboembolism) ([facility]) Post op INA/BSO. - Pneumonia - RLS (restless legs syndrome) - Shortness of breath - Sleep apnea using oxygen currently, not on CPAP - Unsteadiness on feet - Wheezing ALLERGIES Adhesive Tape (Rosins); Cats; Dogs; Orphenadrine; Ciprofloxacin; Keflex [Cephalexin]; Niacin; Niacin Preparations; Penicillin G; Penicillins; Reglan [Metoclopramide Hcl]; Xanthines MEDICATIONS Current Outpatient Prescriptions: COMPOUNDED PRESCRIPTION OCD Titration for portable oxygen concentrator Oxygen Flow Rate between 2-6 liters. To keep oxygen saturation at or above 92%. mupirocin (BACTROBAN) 2 % ointment Apply 1 application to affected area three times daily. promethazine (PHENERGAN) 25 mg tablet Take 1 tablet by mouth every 6 hours as needed. insulin lispro (HUMALOG KWIKPEN INSULIN) 200 unit/mL (3 mL) injection Inject subcutaneously 14 units with breakfast, 22 units with lunch, and 24 units with dinner LYRICA 100 mg capsule TAKE 1 CAPSULE BY MOUTH THREE TIMES A DAY capsaicin (ZOSTRIX-HP) 0.075 % topical cream Apply 1 application to affected area four times daily. ULTICARE PEN NEEDLE 31 gauge x 5/16ANDquot; ndle USE DIRECTED. TO INJECT INSULINS VITAMIN C 500 mg tablet TAKE 1 TABLET BY MOUTH DAILY Ferrous Gluconate (FERGON) 324 mg (38 mg iron) tablet TAKE 1 TABLET BY MOUTH DAILY WITH BREAKFAST insulin glargine (LANTUS SOLOSTAR) 100 unit/mL (3 mL) inpn Inject 60 units subcutaneously twice daily STOOL SOFTENER 100 mg capsule TAKE 1 CAPSULE BY MOUTH DAILY CLAUDIA-KYLE 8.6 mg tab TAKE 1 TABLET BY MOUTH TWICE A DAY isosorbide mononitrate ER (IMDUR) 60 mg 24 hr tablet Take 1.5 tablets by mouth once daily. In the morning atorvastatin (LIPITOR) 40 mg tablet TAKE 1 TABLET BY MOUTH DAILY diltiazem CD (CARDIZEM CD, CARTIA XT) 180 mg 24 hr capsule TAKE 1 CAPSULE BY MOUTH EVERY MORNING levothyroxine (SYNTHROID) 100 mcg tablet TAKE 1 TABLET BY MOUTH EVERY MORNING omeprazole (PRILOSEC) 20 mg capsule TAKE 1 CAPSULE BY MOUTH EVERY MORNING ELIQUIS 2.5 mg tab tab(s) TAKE 1 TABLET BY MOUTH TWICE A DAY nitroglycerin sublingual (NITROQUICK) 0.4 mg SL tablet DISSOLVE 1 TAB UNDER THE TONGUE NEEDED FOR CHEST PAIN EVERY 5 MINUTES UP TO 3 TIMES. IF NO RELIEF CALL 911. metoprolol tartrate, short acting, (LOPRESSOR) 50 mg tablet Take 1 tablet by mouth twice daily. glucose 4 gram chewable tablet Take 4 tablets by mouth as needed for Low Blood Sugar. OXYGEN, HOME THERAPY, Inhale 3 L/min as instructed as directed. fluticasone (FLONASE) 50 mcg/actuation nasal spray Use 2 Sprays in each nostril once daily. metFORMIN ER (GLUCOPHAGE XR) 500 mg 24 hr tablet Take 2 tablets by mouth twice daily. DULoxetine (CYMBALTA) 60 mg capsule Take 1 capsule by mouth once daily. aspirin, enteric coated (ASPIRIN, ENTERIC COATED) 81 mg EC tablet Take 1 tablet by mouth every morning. BIPAP Bilevel PAP 15/11 cmH2O with 2 LPM oxygen bleed in, mask, tubing, filters, heated humidity, lifetime supplies. Please fax 30 day compliance download to [phone]. Dx: G47.33, G47.39. DME: [facility] furosemide (LASIX) 40 mg tablet Take 1 tablet by mouth twice daily. albuterol HFA (VENTOLIN HFA) 90 mcg/actuation inhaler Inhale 2 Puffs as instructed every 4 hours as needed for Wheezing/Shortness of Breath. COMPOUNDED PRESCRIPTION Evaluation for diabetic shoes and inserts Dx: E11.65, Z79.4 blood sugar diagnostic (ONETOUCH ULTRA TEST) test strip Use as directed to check blood sugar 4-5 times daily DX: E11.65 Insulin: yes DM: yes lancets (ONE TOUCH DELICA) 33 gauge misc Use as directed to check blood sugar 4-5 times daily DX: E11.65 Insulin: yes DM: yes Incontinence Pad, Liner, Disp pads 1 Device as needed (urinary incontinence). Prevail incontinence pads. Dx: urinary incontinence. Size: small acetaminophen (TYLENOL) 325 mg tablet Take 2 tablets by mouth every 6 hours as needed for Pain. Blood Pressure Cuff - Home Use BLOOD PRESSURE CUFF FOR HOME USE. DX: LABILE BLOOD PRESSURE Blood-Glucose Meter (ONETOUCH ULTRA2) monitoring kit UAD to test blood sugar Alcohol Swabs padm UAD to clean skin before testing blood sugar and injecting insulins. fluticasone-salmeterol (ADVAIR DISKUS) 250-50 mcg/dose dsdv Inhale 1 Puff as instructed twice daily. No current facility-administered medications for this visit. Medications and allergies reviewed by this provider. 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 Social History Main Topics Smoking status: Former Smoker Packs/day: 1.00 Years: 28.00 Types: Cigarettes Start date: 1978 Quit date: 09/22/2005 Smokeless status: Never Used Comment: Father smoked in childhood. 2nd spouse smoked in home. Alcohol use: No Drug use: No Sexual activity: No Social History Narrative 1 year in current home. No basement, 1 parakeet. Room A/C. Electric baseboard heat. REVIEW OF SYSTEMS RESPIRATORY: Negative for worsening cough, hemoptysis, wheezing, COPD, dyspnea or shortness of breath. Wearing home O2 CARDIOVASCULAR: Negative for chest pain, leg swelling, hypertension, CHF or palpitations SKIN: See HPI OBJECTIVE: BP 118/80 (BP Site: Left Arm, BP Position: Sitting, BP Cuff Size: Large Adult) Pulse 70 Temp 36.8 ?C (98.2 ?F) (Right Tympanic) Resp 16 Wt 99.8 kg (220 lb) SpO2 94% BMI 40.24 kg/m2. Vital signs reviewed by this provider. PHYSICAL EXAMINATION: General appearance: Well appearing, alert, in no acute distress, well-hydrated, well nourished. Skin: Skin color, texture, turgor normal, no suspicious rashes or lesions, previous open area is covered with a dark scab. No drainage, erythema, no pain. Lungs: Lungs clear to auscultation. No wheezing, rhonchi, rales Heart: RRR without murmur, gallop, or rubs. No ectopy Extremities: See skin. No deformities, edema, skin discoloration, clubbing or cyanosis. Good capillary refill. ASSESSMENT/PLAN: 1. Cellulitis of skin - ICD9: 682.9, ICD10: L03.90 - Healing well - ok to continue with topical ointment until scab falls off - continue to keep area clean and dry - discussed red flag symptoms and encouraged to follow up if experiencing any Encouraged to get labs done previously ordered. Spoke with Saad Silvestre regarding home O2 request. Chris Oconnell APRN.[facility] Referring Provider: CHRIS OCONNELL ([facility]) [[id number]] Allergies As of Date: 12/11/2017 Noted Allergy Reaction ADHESIVE TAPE (ROSINS) 04/04/2015 5 - Intolerance Comments: Surgical tape leaves rash Irritates skin badly and blisters along with medical tape CATS 04/10/2016 14 - Other: See Comments Comments: Congested and itchy, difficulty breathing DOGS 04/10/2016 14 - Other: See Comments Comments: Congestion, sneezing, and difficulty breathing ORPHENADRINE 04/10/2016 16 - Unknown CIPROFLOXACIN 12/11/2011 14 - Other: See Comments Comments: Red, hot, itchy rash KEFLEX (CEPHALEXIN) 07/10/2016 4 - Hives NIACIN 04/04/2015 16 - Unknown NIACIN PREPARATIONS 10/18/2004 PENICILLIN G 10/18/2004 PENICILLINS 04/04/2015 16 - Unknown REGLAN (METOCLOPRAMIDE HCL) 03/04/2017 14 - Other: See Comments Comments: Unable to sleep XANTHINES 10/18/2004 16 - Unknown Date Reviewed: 12/11/2017 Reviewed by: Deysi Sepulveda Ma - Fully Assessed Reason for Visit: 2 week F/U [Other] Cmt: cellulitis Primary Visit Diagnosis:Cellulitis of skin [L03.90] Prescriptions as of 12/11/2017 Sig: COMPOUNDED PRESCRIPTION OCD Titration for portable ox* MUPIROCIN 2 % TOPICAL OINTMENT Apply 1 application to affect* PROMETHAZINE 25 MG TABLET Take 1 tablet by mouth every * INSULIN LISPRO (U-200) 200 UN* Inject subcutaneously 14 unit* LYRICA 100 MG CAPSULE TAKE 1 CAPSULE BY MOUTH THREE* CAPSAICIN 0.075 % TOPICAL CRE* Apply 1 application to affect* ULTICARE PEN NEEDLE 31 GAUGE * USE DIRECTED. TO INJECT IN* VITAMIN C 500 MG TABLET TAKE 1 TABLET BY MOUTH DAILY FERROUS GLUCONATE 324 MG (38 * TAKE 1 TABLET BY MOUTH DAILY * INSULIN GLARGINE (U-100) 100 * Inject 60 units subcutaneousl* STOOL SOFTENER 100 MG CAPSULE TAKE 1 CAPSULE BY MOUTH DAILY CLAUDIA-KYLE 8.6 MG TABLET TAKE 1 TABLET BY MOUTH TWICE * ISOSORBIDE MONONITRATE ER 60 * Take 1.5 tablets by mouth onc* ATORVASTATIN 40 MG TABLET TAKE 1 TABLET BY MOUTH DAILY DILTIAZEM SR 180 MG 24 HR CAP TAKE 1 CAPSULE BY MOUTH EVERY* LEVOTHYROXINE 100 MCG TABLET TAKE 1 TABLET BY MOUTH EVERY * OMEPRAZOLE 20 MG CAPSULE,MARIA EUGENIA* TAKE 1 CAPSULE BY MOUTH EVERY* ELIQUIS 2.5 MG TABLET TAKE 1 TABLET BY MOUTH TWICE * NITROGLYCERIN 0.4 MG SUBLINGU* DISSOLVE 1 TAB UNDER THE TONG* METOPROLOL TARTRATE 50 MG TAB* Take 1 tablet by mouth twice * GLUCOSE 4 GRAM CHEWABLE TABLET Take 4 tablets by mouth as ne* OXYGEN (HOME THERAPY) Inhale 3 L/min as instructed * FLUTICASONE 50 MCG/ACTUATION * Use 2 Sprays in each nostril * METFORMIN ER 500 MG TABLET,EX* Take 2 tablets by mouth twice* DULOXETINE 60 MG CAPSULE,MARIA EUGENIA* Take 1 capsule by mouth once * ASPIRIN 81 MG TABLET,DELAYED * Take 1 tablet by mouth every * BIPAP Bilevel PAP 15/11 cmH2O with * FUROSEMIDE 40 MG TABLET Take 1 tablet by mouth twice * ALBUTEROL SULFATE HFA 90 MCG/* Inhale 2 Puffs as instructed * COMPOUNDED PRESCRIPTION Evaluation for diabetic shoes* BLOOD SUGAR DIAGNOSTIC STRIPS Use as directed to check bloo* LANCETS 33 GAUGE Use as directed to check bloo* INCONTINENCE PAD, LINER, DISP* 1 Device as needed (urinary i* ACETAMINOPHEN 325 MG TABLET Take 2 tablets by mouth every* COMPOUNDED PRESCRIPTION BLOOD PRESSURE CUFF FOR HOME * BLOOD-GLUCOSE METER KIT UAD to test blood sugar ALCOHOL SWABS UAD to clean skin before test* FLUTICASONE 250 MCG-SALMETERO* Inhale 1 Puff as instructed t* Medication notes this encounter INSULIN LISPRO (U-200) 200 UNIT/ML (3 ML) SUBCUTANEOUS PEN >> Deysi Sepulveda Ma 12/11/2017 3:11 PM >> DEYSI SEPULVEDA MA Flora Dec 11, 2017 3:11 PM 14 at breakfast 20 at lunch and 28 at supper Problem List As Of Date 12/11/2017 Noted Resolved SUBJECTIVE TINNITUS [H93.19] INVALID FOR* Obstructive sleep apnea [G47.33] INVALID FOR* Hyperlipidemia [E78.5] INVALID FOR* Coronary disease [I25.10] INVALID FOR* Diabetes mellitus, type II (HCC) [E11.9] INVALID FOR* Morbid obesity ([facility]) [E66.01] Hypothyroidism [E03.9] Anxiety [F41.9] Sleep apnea [G47.30] 02/14/2017 Essential hypertension [I10] Coronary atherosclerosis of port lions coronary art* AF (paroxysmal atrial fibrillation) ([facility]) [I48.* COPD (chronic obstructive pulmonary disease) (H* GERD without esophagitis [K21.9] Dysphagia [R13.10] Constipation [K59.00] DM type 2 (diabetes mellitus, type 2) ([facility]) [E1* 02/14/2017 Shortness of breath [R06.02] 02/14/2017 Arthritis [M19.90] More... CHF (congestive heart failure) (HCC) [I50.9] BPPV (benign paroxysmal positional vertigo) [H8*INVALID FOR* RLS (restless legs syndrome) [G25.81] INVALID FOR* Iron deficiency concern: RE RLS [E61.1] INVALID FOR* Tubular adenoma [D36.9] INVALID FOR* Incontinence [R32] More... Gastroparesis [K31.84] INVALID FOR* Pre-op testing [Z01.818] INVALID FOR* More... Encounter Status:Closed by CHRIS OCONNELL on 12/11/17 SCREENING MAMM (CAD), Observed: 12/11/2017 Status: F Source: KINJAL BILAT 11:04 AM [facility] REPOSITORY [facility] Imaging Services [address] [place] [id number] SCREENING MAMM (CAD), BILAT MR#: [id number] Acct: [id number] Name: TAMIA PANDA Rep #: [id number] : 1955 F 62 From: [place] MD PCP: Bhupendra Oliveira MD Status: REG CLI Study: SCREENING MAMM (CAD), BILAT Date of Exam: 12/11/17 Exam# [id number] Ordering Dr: Bhupendra Oliveira MD MAMMOGRAPHY - BILATERAL SCREENING 3-D HOSSEIN SYNTHESIS REASON FOR EXAM: Female, 62 years old. Bilateral Screening 3-D tomosynthesis PERTINENT HISTORY: Aunt with breast cancer.. TECHNIQUE: 2-D mammograms and 3-D Hossein synthesis of the breast (s) were performed. CAD was performed. COMPARISON: 10/17/2016 FINDINGS: The breast composition is composed of scattered fibroglandular density. Scattered benign calcifications are seen. No dense spiculated masses or suspicious microcalcifications are identified. No architectural distortion is identified. There is no skin thickening or retraction. There has been no significant change since the prior study. HPBI/SCREENING MAMM (CAD), BILAT IMPRESSION: No mammographic signs of malignancy. Routine yearly mammograms recommended. ASSESSMENT CATEGORY: BIRADS Category 1: Negative. A letter regarding these results will be sent to the patient by the facility within 30 days. FOLLOW UP RECOMMENDATION: Yearly follow up mammogram recommended. (A) Approximately 10% of breast cancers are not detected by mammography. A normal mammogram should not delay biopsy of a clinically suspicious abnormality. Electronically Signed: Bebo [place] MD at 8:12 EDT , Service support , CC: Bhupendra Oliveira MD Pipe Recovery Specialist: Signed MELCHOR Observed: 12/11/2017 Status: COMPLETED Source: RUSSELL 12:00 AM [facility] REPOSITORY Patient Outreach (FAMPWS) TAMIA PANDA ([id number]) 1955 F Date Time Provider Department 12/11/17 SAAD SILVESTRE (RN) FAMPWS During your visit today, we recorded the following information about you: Saad Silvestre RN 12/12/2017 12:00 PM Signed PRIMARY CARE COORDINATION IN OFFICE VISIT WITH PCP LATE ENTRY FOR 12/11/17 Patient has been identified by name and date of . PCP Assessment/Plan: Reviewed PCP plan with patient using Teach Back Discussed pt unable to get 2 lb Indogen oxygen machine from [facility], pt requesting PCC call [facility] and see if she can get smaller Indogen machine from them. PCC Plan of Care: Patient concerns: Pt having difficulty carrying portable oxygen tank because it is too heavy Next Office Visit: 12/11/2017 Plan For Next Call: One day Saad Silvestre RN December 12, 2017 Saad Silvestre RN 12/12/2017 12:30 PM Addendum TC to patient, informed [employer] doesn't carry oxygen supplies and [employer] cannot get the smaller Indogen concentrator. Asked pt to call [facility] CM and ask her if there is another company we can contact to get the smaller concentrator. If CM has questions pt should give her PCC's number, verbalized agreement. Saad Silvestre RN December 12, 2017 12:30 PM TC to Jenny dangelo [facility] asked about Indogen concentrators they carry. Jenny verified they only carry the portable concentrator that weighs about 5 lbs. They are not able to special order the 2.8 lb concentrator that is advertised on tv. Saad Silvestre RN December 12, 2017 12:14 PM TC to Yancy dangelo [facility], states they do not carry any oxygen products. Saad Silvestre RN December 12, 2017 11:55 PM Allergies As of Date: 12/11/2017 Noted Allergy Reaction ADHESIVE TAPE (ROSINS) 04/04/2015 5 - Intolerance Comments: Surgical tape leaves rash Irritates skin badly and blisters along with medical tape CATS 04/10/2016 14 - Other: See Comments Comments: Congested and itchy, difficulty breathing DOGS 04/10/2016 14 - Other: See Comments Comments: Congestion, sneezing, and difficulty breathing ORPHENADRINE 04/10/2016 16 - Unknown CIPROFLOXACIN 12/11/2011 14 - Other: See Comments Comments: Red, hot, itchy rash KEFLEX (CEPHALEXIN) 07/10/2016 4 - Hives NIACIN 04/04/2015 16 - Unknown NIACIN PREPARATIONS 10/18/2004 PENICILLIN G 10/18/2004 PENICILLINS 04/04/2015 16 - Unknown REGLAN (METOCLOPRAMIDE HCL) 03/04/2017 14 - Other: See Comments Comments: Unable to sleep XANTHINES 10/18/2004 16 - Unknown Date Reviewed: 12/11/2017 Reviewed by: Deysi Sepulveda Ma - Fully Assessed Reason for Visit: 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 TO INJECT IN* VITAMIN C 500 MG TABLET TAKE 1 TABLET BY MOUTH DAILY FERROUS GLUCONATE 324 MG (38 * TAKE 1 TABLET BY MOUTH DAILY * INSULIN GLARGINE (U-100) 100 * Inject 60 units subcutaneousl* STOOL SOFTENER 100 MG CAPSULE TAKE 1 CAPSULE BY MOUTH DAILY CLAUDIA-KYLE 8.6 MG TABLET TAKE 1 TABLET BY MOUTH TWICE * ISOSORBIDE MONONITRATE ER 60 * Take 1.5 tablets by mouth onc* ATORVASTATIN 40 MG TABLET TAKE 1 TABLET BY MOUTH DAILY DILTIAZEM SR 180 MG 24 HR CAP TAKE 1 CAPSULE BY MOUTH EVERY* LEVOTHYROXINE 100 MCG TABLET TAKE 1 TABLET BY MOUTH EVERY * OMEPRAZOLE 20 MG CAPSULE,MARIA EUGENIA* TAKE 1 CAPSULE BY MOUTH EVERY* ELIQUIS 2.5 MG TABLET TAKE 1 TABLET BY MOUTH TWICE * NITROGLYCERIN 0.4 MG SUBLINGU* DISSOLVE 1 TAB UNDER THE TONG* METOPROLOL TARTRATE 50 MG TAB* Take 1 tablet by mouth twice * GLUCOSE 4 GRAM CHEWABLE TABLET Take 4 tablets by mouth as ne* OXYGEN (HOME THERAPY) Inhale 3 L/min as instructed * FLUTICASONE 50 MCG/ACTUATION * Use 2 Sprays in each nostril * METFORMIN ER 500 MG TABLET,EX* Take 2 tablets by mouth twice* DULOXETINE 60 MG CAPSULE,MARIA EUGENIA* Take 1 capsule by mouth once * ASPIRIN 81 MG TABLET,DELAYED * Take 1 tablet by mouth every * BIPAP Bilevel PAP 15/11 cmH2O with * FUROSEMIDE 40 MG TABLET Take 1 tablet by mouth twice * ALBUTEROL SULFATE HFA 90 MCG/* Inhale 2 Puffs as instructed * COMPOUNDED PRESCRIPTION Evaluation for diabetic shoes* BLOOD SUGAR DIAGNOSTIC STRIPS Use as directed to check bloo* LANCETS 33 GAUGE Use as directed to check bloo* INCONTINENCE PAD, LINER, DISP* 1 Device as needed (urinary i* ACETAMINOPHEN 325 MG TABLET Take 2 tablets by mouth every* COMPOUNDED PRESCRIPTION BLOOD PRESSURE CUFF FOR HOME * BLOOD-GLUCOSE METER KIT UAD to test blood sugar ALCOHOL SWABS UAD to clean skin before test* FLUTICASONE 250 MCG-SALMETERO* Inhale 1 Puff as instructed t* Problem List As Of Date 12/11/2017 Noted Resolved SUBJECTIVE TINNITUS [H93.19] INVALID FOR* Obstructive sleep apnea [G47.33] INVALID FOR* Hyperlipidemia [E78.5] INVALID FOR* Coronary disease [I25.10] INVALID FOR* Diabetes mellitus, type II (HCC) [E11.9] INVALID FOR* Morbid obesity (HCC) [E66.01] Hypothyroidism [E03.9] Anxiety [F41.9] Sleep apnea [G47.30] 02/14/2017 Essential hypertension [I10] Coronary atherosclerosis of port lions coronary art* AF (paroxysmal atrial fibrillation) ([facility]) [I48.* COPD (chronic obstructive pulmonary disease) (H* GERD without esophagitis [K21.9] Dysphagia [R13.10] Constipation [K59.00] DM type 2 (diabetes mellitus, type 2) ([facility]) [E1* 02/14/2017 Shortness of breath [R06.02] 02/14/2017 Arthritis [M19.90] More... CHF (congestive heart failure) ([facility]) [I50.9] BPPV (benign paroxysmal positional vertigo) [H8*INVALID FOR* RLS (restless legs syndrome) [G25.81] INVALID FOR* Iron deficiency concern: RE RLS [E61.1] INVALID FOR* Tubular adenoma [D36.9] INVALID FOR* Incontinence [R32] More... Gastroparesis [K31.84] INVALID FOR* Pre-op testing [Z01.818] INVALID FOR* More... Encounter Status:Closed by SAAD SILVESTRE on 12/12/17 PROGRESS Observed: 11/28/2017 Status: COMPLETED Source: RUSSELL 9:09 AM [facility] [place] REPOSITORY HNO ID: [id number] Author: Saad Allen) Larry Service: (none) Author Type: Registered Nurse Type: Progress Notes Filed: 11/28/2017 9:10 AM Note Text: Order faxed to [facility] Silvestre RN November 28, 2017 9:10 AM PROGRESS Observed: 11/28/2017 Status: COMPLETED Source: RUSSELL 8:08 AM [facility] [place] REPOSITORY HNO ID: [id number] Author: Nanda Rodriguez) Brian Service: (none) Author Type: Physician Type: Progress Notes Filed: 11/28/2017 9:10 AM Note Text: Order placed. Thank you very much for pending. PROGRESS Observed: 11/27/2017 Status: COMPLETED Source: RUSSELL 5:01 PM [facility] [place] REPOSITORY HNO ID: [id number] Author: Saad Allen) Larry Service: (none) Author Type: Registered Nurse Type: Progress Notes Filed: 11/27/2017 5:08 PM Note Text: TC from Alis at [facility], discussed evaluation for conserver use. States she needs an order and they will go out and do a OCD Titration. States she needs the order to state a flow range and it must state to keep saturation at or above a certain percent. Fax prescription to [facility] at [phone] ORDER PENDED FOR YOUR APPROVAL PROGRESS Observed: 11/27/2017 Status: COMPLETED Source: RUSSELL 12:04 PM [facility] [place] REPOSITORY HNO ID: [id number] Author: Chris (Lm) Kourtney Service: (none) Author Type: Nurse Practitioner Type: Progress Notes Filed: 11/27/2017 12:24 PM Note Text: 11/27/2017 Patient presents with: Derm Problem: on back of L leg/calf area SUBJECTIVE: This is a 62 year old that is here today with daughter in law for wound on left leg. She states that 2 days ago, she was applying cream to her feet and had the leg bent and resting on the other leg and it was fine, she placed it back down to the ground, realized that there was more cream to rub in and when she rested the leg the same way again, there was a pain that made her immediately put the leg back down. She denies noticing a wound prior to 2 days ago. She denies any drainage. She thinks that it was warm to touch the first day, but not anymore. The redness around the wound is getting worse and that is what made her want to come in. She denies any known fever, or chills. PAST MEDICAL HISTORY Diagnosis Date - Acute chronic obstructive pulmonary disease with respiratory failure ([facility]) - AF (paroxysmal atrial fibrillation) ([facility]) - Anxiety - Arthritis Seeing Dr Elliott - Cervical cancer ([facility]) hysterectomy - CHF (congestive heart failure) ([facility]) - Chronic back pain Seeing Dr. Wallace - Constipation - COPD (chronic obstructive pulmonary disease) ([facility]) - Coronary atherosclerosis of port lions coronary artery Previously seeing Dr. Sosa - DDD (degenerative disc disease), lumbar - DM type 2 (diabetes mellitus, type 2) ([facility]) Seeing Dr. Foley for podiatry - DVT (deep venous thrombosis) ([facility]) Post op INA, BSO. - Dysphagia Seeing Dr. Beaulieu - Emphysema lung ([facility]) - Essential hypertension - Functional dyspepsia - Gastroparesis 2017 mild - GERD without esophagitis - Headache - History of colon polyps 11/28/2016 - Hyperlipidemia - Hypothyroidism - Incontinence Seeing Dr. Chapman - Morbid obesity (HCC) - Muscle weakness - Nausea - PARESH on CPAP [facility], no longer using as of 10/2017, was not compliant - PE (pulmonary thromboembolism) (HCC) Post op INA/BSO. - Pneumonia - RLS (restless legs syndrome) - Shortness of breath - Sleep apnea using oxygen currently, not on CPAP - Unsteadiness on feet - Wheezing ALLERGIES Adhesive Tape (Rosins); Cats; Dogs; Orphenadrine; Ciprofloxacin; Keflex [Cephalexin]; Niacin; Niacin Preparations; Penicillin G; Penicillins; Reglan [Metoclopramide Hcl]; Xanthines MEDICATIONS Current Outpatient Prescriptions: promethazine (PHENERGAN) 25 mg tablet Take 1 tablet by mouth every 6 hours as needed. LYRICA 100 mg capsule TAKE 1 CAPSULE BY MOUTH THREE TIMES A DAY capsaicin (ZOSTRIX-HP) 0.075 % topical cream Apply 1 application to affected area four times daily. ULTICARE PEN NEEDLE 31 gauge x 5/16 ndle USE DIRECTED. TO INJECT INSULINS VITAMIN C 500 mg tablet TAKE 1 TABLET BY MOUTH DAILY Ferrous Gluconate (FERGON) 324 mg (38 mg iron) tablet TAKE 1 TABLET BY MOUTH DAILY WITH BREAKFAST insulin glargine (LANTUS SOLOSTAR) 100 unit/mL (3 mL) inpn Inject 60 units subcutaneously twice daily STOOL SOFTENER 100 mg capsule TAKE 1 CAPSULE BY MOUTH DAILY CLAUDIA-KYLE 8.6 mg tab TAKE 1 TABLET BY MOUTH TWICE A DAY isosorbide mononitrate ER (IMDUR) 60 mg 24 hr tablet Take 1.5 tablets by mouth once daily. In the morning atorvastatin (LIPITOR) 40 mg tablet TAKE 1 TABLET BY MOUTH DAILY diltiazem CD (CARDIZEM CD, CARTIA XT) 180 mg 24 hr capsule TAKE 1 CAPSULE BY MOUTH EVERY MORNING levothyroxine (SYNTHROID) 100 mcg tablet TAKE 1 TABLET BY MOUTH EVERY MORNING omeprazole (PRILOSEC) 20 mg capsule TAKE 1 CAPSULE BY MOUTH EVERY MORNING ELIQUIS 2.5 mg tab tab(s) TAKE 1 TABLET BY MOUTH TWICE A DAY nitroglycerin sublingual (NITROQUICK) 0.4 mg SL tablet DISSOLVE 1 TAB UNDER THE TONGUE NEEDED FOR CHEST PAIN EVERY 5 MINUTES UP TO 3 TIMES. IF NO RELIEF CALL 911. metoprolol tartrate, short acting, (LOPRESSOR) 50 mg tablet Take 1 tablet by mouth twice daily. glucose 4 gram chewable tablet Take 4 tablets by mouth as needed for Low Blood Sugar. OXYGEN, HOME THERAPY, Inhale 3 L/min as instructed as directed. fluticasone (FLONASE) 50 mcg/actuation nasal spray Use 2 Sprays in each nostril once daily. metFORMIN ER (GLUCOPHAGE XR) 500 mg 24 hr tablet Take 2 tablets by mouth twice daily. DULoxetine (CYMBALTA) 60 mg capsule Take 1 capsule by mouth once daily. aspirin, enteric coated (ASPIRIN, ENTERIC COATED) 81 mg EC tablet Take 1 tablet by mouth every morning. BIPAP Bilevel PAP 15/11 cmH2O with 2 LPM oxygen bleed in, mask, tubing, filters, heated humidity, lifetime supplies. Please fax 30 day compliance download to [phone]. Dx: G47.33, G47.39. DME: [facility] furosemide (LASIX) 40 mg tablet Take 1 tablet by mouth twice daily. albuterol HFA (VENTOLIN HFA) 90 mcg/actuation inhaler Inhale 2 Puffs as instructed every 4 hours as needed for Wheezing/Shortness of Breath. COMPOUNDED PRESCRIPTION Evaluation for diabetic shoes and inserts Dx: E11.65, Z79.4 blood sugar diagnostic (ONETOUCH ULTRA TEST) test strip Use as directed to check blood sugar 4-5 times daily DX: E11.65 Insulin: yes DM: yes lancets (ONE TOUCH DELICA) 33 gauge misc Use as directed to check blood sugar 4-5 times daily DX: E11.65 Insulin: yes DM: yes Incontinence Pad, Liner, Disp pads 1 Device as needed (urinary incontinence). Prevail incontinence pads. Dx: urinary incontinence. Size: small acetaminophen (TYLENOL) 325 mg tablet Take 2 tablets by mouth every 6 hours as needed for Pain. Blood Pressure Cuff - Home Use BLOOD PRESSURE CUFF FOR HOME USE. DX: LABILE BLOOD PRESSURE Blood-Glucose Meter (ONETOUCH ULTRA2) monitoring kit UAD to test blood sugar Alcohol Swabs padm UAD to clean skin before testing blood sugar and injecting insulins. fluticasone-salmeterol (ADVAIR DISKUS) 250-50 mcg/dose dsdv Inhale 1 Puff as instructed twice daily. sulfamethoxazole-trimethoprim (BACTRIM DS) 800-160 mg per tablet Take 1 tablet by mouth twice daily for 10 days. mupirocin (BACTROBAN) 2 % ointment Apply 1 application to affected area three times daily. insulin lispro (HUMALOG KWIKPEN INSULIN) 200 unit/mL (3 mL) injection Inject subcutaneously 14 units with breakfast, 22 units with lunch, and 24 units with dinner No current facility-administered medications for this visit. Medications and allergies reviewed by this provider. 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 Social History Main Topics Smoking status: Former Smoker Packs/day: 1.00 Years: 28.00 Types: Cigarettes Start date: 1978 Quit date: 09/22/2005 Smokeless status: Never Used Comment: Father smoked in childhood. 2nd spouse smoked in home. Alcohol use: No Drug use: No Sexual activity: No Social History Narrative 1 year in current home. No basement, 1 parakeet. Room A/C. Electric baseboard heat. REVIEW OF SYSTEMS see HPI OBJECTIVE: BP 118/76 (BP Site: Left Arm, BP Position: Sitting, BP Cuff Size: Large Adult) Pulse 87 Temp 37.2 ?C (99 ?F) (Right Tympanic) Resp 24 Wt 100.6 kg (221 lb 12.8 oz) SpO2 92% BMI 40.57 kg/m2. Vital signs reviewed by this provider. PHYSICAL EXAMINATION: General appearance: Well appearing, alert, in no acute distress, well-hydrated, well nourished. Skin: left calf with [id number] wound- bottom brown in color, top red and more raw and moist. No drainage. + tender to touch. Erythema surrounding it more to the medial aspect of the calf measuring about [id number]. No warmth. No pain to the area with the erythema surrounding the wound. No edema. Lungs: Lungs clear to auscultation. No wheezing, rhonchi, rales Heart: RRR without murmur, gallop, or rubs. No ectopy Extremities: No deformities, edema, skin discoloration, clubbing or cyanosis. Good capillary refill. ASSESSMENT/PLAN: 1. Cellulitis of skin - ICD9: 682.9, ICD10: L03.90 (primary diagnosis) - Begin treatment with Trimethoprim-sulfamethozazole (Bactrim) PO BID - encouraged to keep area clean and dry- multiple sensitivities to bandages and tape- pt states that she will try to find what she knows will work for her and declines any bandage here today - No lymphangetic streaking, this was defined for patient to watch for and to seek medical care immediately if appears - seek further attention if this area continues to enlarge, or with fever, drainage, or heat - Follow up for recheck in 10-14 days - SULFAMETHOXAZOLE 800 MG-TRIMETHOPRIM 160 MG TABLET 2. Abrasion of left calf, initial encounter - ICD9: 916.0, ICD10: S80.812A - see above - SULFAMETHOXAZOLE 800 MG-TRIMETHOPRIM 160 MG TABLET - MUPIROCIN 2 % TOPICAL OINTMENT Chris Oconnell CNP PROGRESS Observed: 11/27/2017 Status: COMPLETED Source: RUSSELL 11:25 AM [facility] REPOSITORY HNO ID: [id number] Author: Saad (Nina) Larry Service: (none) Author Type: Registered Nurse Type: Progress Notes Filed: 11/27/2017 3:14 PM Note Text: PRIMARY CARE COORDINATION IN OFFICE VISIT WITH PCP Patient has been identified by name and date of . PCP Assessment/Plan: Reviewed PCP plan with patient using Teach Back Discussed pt not wearing her oxygen to provider visit today. Pt asking if she could have the Indogen portable oxygen. Informed we faxed a prescription in September but PCC will check with [facility]. PCC Plan of Care: Patient concerns: Open area on leg Patient goals: Pt will monitor leg wound and return if symptoms worsen Pt will wear O2 as ordered PCC Interventions: TC to [facility], all Resp Coordinators are busy, message left to call PCC back. TC to [facility], states they received the indogen prescription in September but pt is on 2L/minute continuous and indogen only has pulse dose. States they sent a request to a Showroom Sales Assistant to call patient. Transferred to Resp Coordinator but all lines busy, will have them call PCC back. Transferred to Showroom Sales Assistant Next Office Visit: 12/29/2017 Plan For Next Call: 2 weeks Saad Silvestre RN November 27, 2017 IESHA Observed: 11/27/2017 Status: COMPLETED Source: RUSSELL 11:00 AM [facility] REPOSITORY Office Visit (FAMPWS) TAMIA PANDA ([id number]) 1955 F Date Time Provider Department 11/27/17 11:00 AM [facility]LL[facility] your visit today, we recorded the following information about you: Temperature Pulse Respiration Blood pressure 99 degrees 87/minute 24/minute 118/76 Weight 100.6 kg Chris Oconnell CNP 11/27/2017 11:32 AM Signed Need to be seen if having a fever, chills, drainage, streaking, warmth, or any worsening symptoms. Chris Oconnell CNP 11/27/2017 12:24 PM Signed 11/27/2017 Patient presents with: Derm Problem: on back of L leg/calf area SUBJECTIVE: This is a 62 year old that is here today with daughter in law for wound on left leg. She states that 2 days ago, she was applying cream to her feet and had the leg bent and resting on the other leg and it was fine, she placed it back down to the ground, realized that there was more cream to rub in and when she rested the leg the same way again, there was a pain that made her immediately put the leg back down. She denies noticing a wound prior to 2 days ago. She denies any drainage. She thinks that it was warm to touch the first day, but not anymore. The redness around the wound is getting worse and that is what made her want to come in. She denies any known fever, or chills. PAST MEDICAL HISTORY Diagnosis Date - Acute chronic obstructive pulmonary disease with respiratory failure (HCC) - AF (paroxysmal atrial fibrillation) ([facility]) - Anxiety - Arthritis Seeing Dr Elliott - Cervical cancer ([facility]) hysterectomy - CHF (congestive heart failure) ([facility]) - Chronic back pain Seeing Dr. Wallace - Constipation - COPD (chronic obstructive pulmonary disease) ([facility]) - Coronary atherosclerosis of port lions coronary artery Previously seeing Dr. Sosa - DDD (degenerative disc disease), lumbar - DM type 2 (diabetes mellitus, type 2) ([facility]) Seeing Dr. Foley for podiatry - DVT (deep venous thrombosis) ([facility]) Post op INA, BSO. - Dysphagia Seeing Dr. Beaulieu - Emphysema lung ([facility]) - Essential hypertension - Functional dyspepsia - Gastroparesis 2017 mild - GERD without esophagitis - Headache - History of colon polyps 11/28/2016 - Hyperlipidemia - Hypothyroidism - Incontinence Seeing Dr. Chapman - Morbid obesity ([facility]) - Muscle weakness - Nausea - PARESH on CPAP [facility], no longer using as of 10/2017, was not compliant - PE (pulmonary thromboembolism) ([facility]) Post op INA/BSO. - Pneumonia - RLS (restless legs syndrome) - Shortness of breath - Sleep apnea using oxygen currently, not on CPAP - Unsteadiness on feet - Wheezing ALLERGIES Adhesive Tape (Rosins); Cats; Dogs; Orphenadrine; Ciprofloxacin; Keflex [Cephalexin]; Niacin; Niacin Preparations; Penicillin G; Penicillins; Reglan [Metoclopramide Hcl]; Xanthines MEDICATIONS Current Outpatient Prescriptions: promethazine (PHENERGAN) 25 mg tablet Take 1 tablet by mouth every 6 hours as needed. LYRICA 100 mg capsule TAKE 1 CAPSULE BY MOUTH THREE TIMES A DAY capsaicin (ZOSTRIX-HP) 0.075 % topical cream Apply 1 application to affected area four times daily. ULTICARE PEN NEEDLE 31 gauge x 5/16ANDquot; ndle USE DIRECTED. TO INJECT INSULINS VITAMIN C 500 mg tablet TAKE 1 TABLET BY MOUTH DAILY Ferrous Gluconate (FERGON) 324 mg (38 mg iron) tablet TAKE 1 TABLET BY MOUTH DAILY WITH BREAKFAST insulin glargine (LANTUS SOLOSTAR) 100 unit/mL (3 mL) inpn Inject 60 units subcutaneously twice daily STOOL SOFTENER 100 mg capsule TAKE 1 CAPSULE BY MOUTH DAILY CLAUDIA-KYLE 8.6 mg tab TAKE 1 TABLET BY MOUTH TWICE A DAY isosorbide mononitrate ER (IMDUR) 60 mg 24 hr tablet Take 1.5 tablets by mouth once daily. In the morning atorvastatin (LIPITOR) 40 mg tablet TAKE 1 TABLET BY MOUTH DAILY diltiazem CD (CARDIZEM CD, CARTIA XT) 180 mg 24 hr capsule TAKE 1 CAPSULE BY MOUTH EVERY MORNING levothyroxine (SYNTHROID) 100 mcg tablet TAKE 1 TABLET BY MOUTH EVERY MORNING omeprazole (PRILOSEC) 20 mg capsule TAKE 1 CAPSULE BY MOUTH EVERY MORNING ELIQUIS 2.5 mg tab tab(s) TAKE 1 TABLET BY MOUTH TWICE A DAY nitroglycerin sublingual (NITROQUICK) 0.4 mg SL tablet DISSOLVE 1 TAB UNDER THE TONGUE NEEDED FOR CHEST PAIN EVERY 5 MINUTES UP TO 3 TIMES. IF NO RELIEF CALL 911. metoprolol tartrate, short acting, (LOPRESSOR) 50 mg tablet Take 1 tablet by mouth twice daily. glucose 4 gram chewable tablet Take 4 tablets by mouth as needed for Low Blood Sugar. OXYGEN, HOME THERAPY, Inhale 3 L/min as instructed as directed. fluticasone (FLONASE) 50 mcg/actuation nasal spray Use 2 Sprays in each nostril once daily. metFORMIN ER (GLUCOPHAGE XR) 500 mg 24 hr tablet Take 2 tablets by mouth twice daily. DULoxetine (CYMBALTA) 60 mg capsule Take 1 capsule by mouth once daily. aspirin, enteric coated (ASPIRIN, ENTERIC COATED) 81 mg EC tablet Take 1 tablet by mouth every morning. BIPAP Bilevel PAP 15/11 cmH2O with 2 LPM oxygen bleed in, mask, tubing, filters, heated humidity, lifetime supplies. Please fax 30 day compliance download to [phone]. Dx: G47.33, G47.39. DME: [facility] furosemide (LASIX) 40 mg tablet Take 1 tablet by mouth twice daily. albuterol HFA (VENTOLIN HFA) 90 mcg/actuation inhaler Inhale 2 Puffs as instructed every 4 hours as needed for Wheezing/Shortness of Breath. COMPOUNDED PRESCRIPTION Evaluation for diabetic shoes and inserts Dx: E11.65, Z79.4 blood sugar diagnostic (ONETOUCH ULTRA TEST) test strip Use as directed to check blood sugar 4-5 times daily DX: E11.65 Insulin: yes DM: yes lancets (ONE TOUCH DELICA) 33 gauge misc Use as directed to check blood sugar 4-5 times daily DX: E11.65 Insulin: yes DM: yes Incontinence Pad, Liner, Disp pads 1 Device as needed (urinary incontinence). Prevail incontinence pads. Dx: urinary incontinence. Size: small acetaminophen (TYLENOL) 325 mg tablet Take 2 tablets by mouth every 6 hours as needed for Pain. Blood Pressure Cuff - Home Use BLOOD PRESSURE CUFF FOR HOME USE. DX: LABILE BLOOD PRESSURE Blood-Glucose Meter (ONETOUCH ULTRA2) monitoring kit UAD to test blood sugar Alcohol Swabs padm UAD to clean skin before testing blood sugar and injecting insulins. fluticasone-salmeterol (ADVAIR DISKUS) 250-50 mcg/dose dsdv Inhale 1 Puff as instructed twice daily. sulfamethoxazole-trimethoprim (BACTRIM DS) 800-160 mg per tablet Take 1 tablet by mouth twice daily for 10 days. mupirocin (BACTROBAN) 2 % ointment Apply 1 application to affected area three times daily. insulin lispro (HUMALOG KWIKPEN INSULIN) 200 unit/mL (3 mL) injection Inject subcutaneously 14 units with breakfast, 22 units with lunch, and 24 units with dinner No current facility-administered medications for this visit. Medications and allergies reviewed by this provider. 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 Social History Main Topics Smoking status: Former Smoker Packs/day: 1.00 Years: 28.00 Types: Cigarettes Start date: 1978 Quit date: 09/22/2005 Smokeless status: Never Used Comment: Father smoked in childhood. 2nd spouse smoked in home. Alcohol use: No Drug use: No Sexual activity: No Social History Narrative 1 year in current home. No basement, 1 parakeet. Room A/C. Electric baseboard heat. REVIEW OF SYSTEMS see HPI OBJECTIVE: BP 118/76 (BP Site: Left Arm, BP Position: Sitting, BP Cuff Size: Large Adult) Pulse 87 Temp 37.2 ?C (99 ?F) (Right Tympanic) Resp 24 Wt 100.6 kg (221 lb 12.8 oz) SpO2 92% BMI 40.57 kg/m2. Vital signs reviewed by this provider. PHYSICAL EXAMINATION: General appearance: Well appearing, alert, in no acute distress, well-hydrated, well nourished. Skin: left calf with [id number] wound- bottom brown in color, top red and more raw and moist. No drainage. + tender to touch. Erythema surrounding it more to the medial aspect of the calf measuring about [id number]. No warmth. No pain to the area with the erythema surrounding the wound. No edema. Lungs: Lungs clear to auscultation. No wheezing, rhonchi, rales Heart: RRR without murmur, gallop, or rubs. No ectopy Extremities: No deformities, edema, skin discoloration, clubbing or cyanosis. Good capillary refill. ASSESSMENT/PLAN: 1. Cellulitis of skin - ICD9: 682.9, ICD10: L03.90 (primary diagnosis) - Begin treatment with Trimethoprim-sulfamethozazole (Bactrim) PO BID - encouraged to keep area clean and dry- multiple sensitivities to bandages and tape- pt states that she will try to find what she knows will work for her and declines any bandage here today - No lymphangetic streaking, this was defined for patient to watch for and to seek medical care immediately if appears - seek further attention if this area continues to enlarge, or with fever, drainage, or heat - Follow up for recheck in 10-14 days - SULFAMETHOXAZOLE 800 MG-TRIMETHOPRIM 160 MG TABLET 2. Abrasion of left calf, initial encounter - ICD9: 916.0, ICD10: S80.812A - see above - SULFAMETHOXAZOLE 800 MG-TRIMETHOPRIM 160 MG TABLET - MUPIROCIN 2 % TOPICAL OINTMENT Chris Oconnell, DATA INPUT CLERK Referring Provider: SELF [[id number]] Allergies As of Date: 11/27/2017 Noted Allergy Reaction ADHESIVE TAPE (ROSINS) 04/04/2015 5 - Intolerance Comments: Surgical tape leaves rash Irritates skin badly and blisters along with medical tape CATS 04/10/2016 14 - Other: See Comments Comments: Congested and itchy, difficulty breathing DOGS 04/10/2016 14 - Other: See Comments Comments: Congestion, sneezing, and difficulty breathing ORPHENADRINE 04/10/2016 16 - Unknown CIPROFLOXACIN 12/11/2011 14 - Other: See Comments Comments: Red, hot, itchy rash KEFLEX (CEPHALEXIN) 07/10/2016 4 - Hives NIACIN 04/04/2015 16 - Unknown NIACIN PREPARATIONS 10/18/2004 PENICILLIN G 10/18/2004 PENICILLINS 04/04/2015 16 - Unknown REGLAN (METOCLOPRAMIDE HCL) 03/04/2017 14 - Other: See Comments Comments: Unable to sleep XANTHINES 10/18/2004 Date Reviewed: 11/27/2017 Reviewed by: Deysi Sepulveda Ma - Fully Assessed Reason for Visit: Derm Problem [33] Cmt: on back of L leg/calf area Primary Visit Diagnosis:Cellulitis of skin [L03.90] Other Visit Diagnosis:Abrasion of left calf, initial encounter [S80.748T] Order(s):sulfamethoxazole-trimethoprim (BACTRIM DS) 800-160 mg per tabletTake 1 tablet by mouth twice daily for 10 days.Disp: 20 tabletRfl: 0 mupirocin (BACTROBAN) 2 % ointmentApply 1 application to affected area three times daily.Disp: 1 TubeRfl: 0 Prescriptions as of 11/27/2017 Sig: PROMETHAZINE 25 MG TABLET Take 1 tablet by mouth every * LYRICA 100 MG CAPSULE TAKE 1 CAPSULE BY MOUTH THREE* CAPSAICIN 0.075 % TOPICAL CRE* Apply 1 application to affect* ULTICARE PEN NEEDLE 31 GAUGE * USE DIRECTED. TO INJECT IN* VITAMIN C 500 MG TABLET TAKE 1 TABLET BY MOUTH DAILY FERROUS GLUCONATE 324 MG (38 * TAKE 1 TABLET BY MOUTH DAILY * INSULIN GLARGINE (U-100) 100 * Inject 60 units subcutaneousl* STOOL SOFTENER 100 MG CAPSULE TAKE 1 CAPSULE BY MOUTH DAILY CLAUDIA-KYLE 8.6 MG TABLET TAKE 1 TABLET BY MOUTH TWICE * ISOSORBIDE MONONITRATE ER 60 * Take 1.5 tablets by mouth onc* ATORVASTATIN 40 MG TABLET TAKE 1 TABLET BY MOUTH DAILY DILTIAZEM SR 180 MG 24 HR CAP TAKE 1 CAPSULE BY MOUTH EVERY* LEVOTHYROXINE 100 MCG TABLET TAKE 1 TABLET BY MOUTH EVERY * OMEPRAZOLE 20 MG CAPSULE,MARIA EUGENIA* TAKE 1 CAPSULE BY MOUTH EVERY* ELIQUIS 2.5 MG TABLET TAKE 1 TABLET BY MOUTH TWICE * NITROGLYCERIN 0.4 MG SUBLINGU* DISSOLVE 1 TAB UNDER THE TONG* METOPROLOL TARTRATE 50 MG TAB* Take 1 tablet by mouth twice * GLUCOSE 4 GRAM CHEWABLE TABLET Take 4 tablets by mouth as ne* OXYGEN (HOME THERAPY) Inhale 3 L/min as instructed * FLUTICASONE 50 MCG/ACTUATION * Use 2 Sprays in each nostril * METFORMIN ER 500 MG TABLET,EX* Take 2 tablets by mouth twice* DULOXETINE 60 MG CAPSULE,MARIA EUGENIA* Take 1 capsule by mouth once * ASPIRIN 81 MG TABLET,DELAYED * Take 1 tablet by mouth every * BIPAP Bilevel PAP 15/11 cmH2O with * FUROSEMIDE 40 MG TABLET Take 1 tablet by mouth twice * ALBUTEROL SULFATE HFA 90 MCG/* Inhale 2 Puffs as instructed * COMPOUNDED PRESCRIPTION Evaluation for diabetic shoes* BLOOD SUGAR DIAGNOSTIC STRIPS Use as directed to check bloo* LANCETS 33 GAUGE Use as directed to check bloo* INCONTINENCE PAD, LINER, DISP* 1 Device as needed (urinary i* ACETAMINOPHEN 325 MG TABLET Take 2 tablets by mouth every* COMPOUNDED PRESCRIPTION BLOOD PRESSURE CUFF FOR HOME * BLOOD-GLUCOSE METER KIT UAD to test blood sugar ALCOHOL SWABS UAD to clean skin before test* FLUTICASONE 250 MCG-SALMETERO* Inhale 1 Puff as instructed t* SULFAMETHOXAZOLE 800 MG-TRIME* Take 1 tablet by mouth twice * MUPIROCIN 2 % TOPICAL OINTMENT Apply 1 application to affect* INSULIN LISPRO (U-200) 200 UN* Inject subcutaneously 14 unit* Problem List As Of Date 11/27/2017 Noted Resolved SUBJECTIVE TINNITUS [H93.19] INVALID FOR* Obstructive sleep apnea [G47.33] INVALID FOR* Hyperlipidemia [E78.5] INVALID FOR* Coronary disease [I25.10] INVALID FOR* Diabetes mellitus, type II ([facility]) [E11.9] INVALID FOR* Morbid obesity ([facility]) [E66.01] Hypothyroidism [E03.9] Anxiety [F41.9] Sleep apnea [G47.30] 02/14/2017 Essential hypertension [I10] Coronary atherosclerosis of [place] lions coronary art* AF (paroxysmal atrial fibrillation) ([facility]) [I48.* COPD (chronic obstructive pulmonary disease) (H* GERD without esophagitis [K21.9] Dysphagia [R13.10] Constipation [K59.00] DM type 2 (diabetes mellitus, type 2) ([facility]) [E1* 02/14/2017 Shortness of breath [R06.02] 02/14/2017 Arthritis [M19.90] More... CHF (congestive heart failure) ([facility]) [I50.9] BPPV (benign paroxysmal positional vertigo) [H8*INVALID FOR* RLS (restless legs syndrome) [G25.81] INVALID FOR* Iron deficiency concern: RE RLS [E61.1] INVALID FOR* Tubular adenoma [D36.9] INVALID FOR* Incontinence [R32] More... Gastroparesis [K31.84] INVALID FOR* Pre-op testing [Z01.818] INVALID FOR* More... Other instructions from your clinician: Need to be seen if having a fever, chills, drainage, streaking, warmth, or any worsening symptoms. Prescriptions ordered this encounter Disp Refills Start End SULFAMETHOXAZOLE 800 MG-TRIMETHOPRIM* 20 t* 0 11/27/2017 12/07/2017 Route: ORAL Sig: Take 1 tablet by mouth twice daily for 10 days. MUPIROCIN 2 % TOPICAL OINTMENT 1 Tu* 0 11/27/2017 Route: TOPICAL Sig: Apply 1 application to affected area three times daily. Medications Discontinued During This Encounter sulfamethoxazole-trimethoprim (BACTR* 20 t* 0 10/20/2017 11/27/2017 Cmt: Ok to give generic equivalent Route: ORAL Sig: Take 1 tablet by mouth twice daily for 10 days. Disc: Reason for discontinue is not on file. Disposition: Return in about 2 weeks (around 12/11/2017) for 10-14 days f/u cellulitis . Follow-up and Disposition History Recorded Encounter Status:Closed by CHRIS OCONNELL on 11/27/17 MELCHOR Observed: 11/27/2017 Status: COMPLETED Source: [place] 12:00 AM [facility] REPOSITORY Patient Outreach ([facility]AMPWS) TAMIA PANDA ([id number]) 1955 F Date Time Provider Department 11/27/17 SAAD SILVESTRE) [facility] During your visit today, we recorded the following information about you: Saad Silvestre RN 11/27/2017 3:14 PM Signed PRIMARY CARE COORDINATION IN OFFICE VISIT WITH PCP Patient has been identified by name and date of . PCP Assessment/Plan: Reviewed PCP plan with patient using Teach Back Discussed pt not wearing her oxygen to provider visit today. Pt asking if she could have the Indogen portable oxygen. Informed we faxed a prescription in September but PCC will check with [facility]. PCC Plan of Care: Patient concerns: Open area on leg Patient goals: Pt will monitor leg wound and return if symptoms worsen Pt will wear O2 as ordered PCC Interventions: TC to [facility], all Resp Coordinators are busy, message left to call PCC back. TC to [facility], states they received the indogen prescription in September but pt is on 2L/minute continuous and indogen only has pulse dose. States they sent a request to a Showroom Sales Assistant to call patient. Transferred to Resp Coordinator but all lines busy, will have them call PCC back. Transferred to Showroom Sales Assistant Next Office Visit: 12/29/2017 Plan For Next Call: 2 weeks Saad Silvestre RN November 27, 2017 Saad Silvestre RN 11/27/2017 5:08 PM Signed TC from Alis at [facility], discussed evaluation for conserver use. States she needs an order and they will go out and do a OCD Titration. States she needs the order to state a flow range and it must state to keep saturation at or above a certain percent. Fax prescription to [facility] at [phone] ORDER PENDED FOR YOUR APPROVAL Nanda Oliveira MD 11/28/2017 9:10 AM Signed Order placed. Thank you very much for pending. Saad Silvestre RN 11/28/2017 9:10 AM Signed Order faxed to [facility] Saad Silvestre RN November 28, 2017 9:10 AM Allergies As of Date: 11/27/2017 Noted Allergy Reaction ADHESIVE TAPE (ROSINS) 04/04/2015 5 - Intolerance Comments: Surgical tape leaves rash Irritates skin badly and blisters along with medical tape CATS 04/10/2016 14 - Other: See Comments Comments: Congested and itchy, difficulty breathing DOGS 04/10/2016 14 - Other: See Comments Comments: Congestion, sneezing, and difficulty breathing ORPHENADRINE 04/10/2016 16 - Unknown CIPROFLOXACIN 12/11/2011 14 - Other: See Comments Comments: Red, hot, itchy rash KEFLEX (CEPHALEXIN) 07/10/2016 4 - Hives NIACIN 04/04/2015 16 - Unknown NIACIN PREPARATIONS 10/18/2004 PENICILLIN G 10/18/2004 PENICILLINS 04/04/2015 16 - Unknown REGLAN (METOCLOPRAMIDE HCL) 03/04/2017 14 - Other: See Comments Comments: Unable to sleep XANTHINES 10/18/2004 Date Reviewed: 11/27/2017 Reviewed by: Deysi Sepulveda Ma - Fully Assessed Reason for Visit: Glove Cuffer-In Office Visit [5374] Primary Visit Diagnosis:Chronic obstructive pulmonary disease, unspecified COPD type ([facility]) [J44.9] Order(s):COMPOUNDED PRESCRIPTIONOCD Titration for portable oxygen concentrator Oxygen Flow Rate between 2-6 liters. To keep oxygen saturation at or above 92%.Disp: 1 EachRfl: 0 Prescriptions as of 11/27/2017 Sig: COMPOUNDED PRESCRIPTION OCD Titration for portable ox* SULFAMETHOXAZOLE 800 MG-TRIME* Take 1 tablet by mouth twice * MUPIROCIN 2 % TOPICAL OINTMENT Apply 1 application to affect* PROMETHAZINE 25 MG TABLET Take 1 tablet by mouth every * INSULIN LISPRO (U-200) 200 UN* Inject subcutaneously 14 unit* LYRICA 100 MG CAPSULE TAKE 1 CAPSULE BY MOUTH THREE* CAPSAICIN 0.075 % TOPICAL CRE* Apply 1 application to affect* ULTICARE PEN NEEDLE 31 GAUGE * USE DIRECTED. TO INJECT IN* VITAMIN C 500 MG TABLET TAKE 1 TABLET BY MOUTH DAILY FERROUS GLUCONATE 324 MG (38 * TAKE 1 TABLET BY MOUTH DAILY * INSULIN GLARGINE (U-100) 100 * Inject 60 units subcutaneousl* STOOL SOFTENER 100 MG CAPSULE TAKE 1 CAPSULE BY MOUTH DAILY CLAUDIA-KYLE 8.6 MG TABLET TAKE 1 TABLET BY MOUTH TWICE * ISOSORBIDE MONONITRATE ER 60 * Take 1.5 tablets by mouth onc* ATORVASTATIN 40 MG TABLET TAKE 1 TABLET BY MOUTH DAILY DILTIAZEM SR 180 MG 24 HR CAP TAKE 1 CAPSULE BY MOUTH EVERY* LEVOTHYROXINE 100 MCG TABLET TAKE 1 TABLET BY MOUTH EVERY * OMEPRAZOLE 20 MG CAPSULE,MARIA EUGENIA* TAKE 1 CAPSULE BY MOUTH EVERY* ELIQUIS 2.5 MG TABLET TAKE 1 TABLET BY MOUTH TWICE * NITROGLYCERIN 0.4 MG SUBLINGU* DISSOLVE 1 TAB UNDER THE TONG* METOPROLOL TARTRATE 50 MG TAB* Take 1 tablet by mouth twice * GLUCOSE 4 GRAM CHEWABLE TABLET Take 4 tablets by mouth as ne* OXYGEN (HOME THERAPY) Inhale 3 L/min as instructed * FLUTICASONE 50 MCG/ACTUATION * Use 2 Sprays in each nostril * METFORMIN ER 500 MG TABLET,EX* Take 2 tablets by mouth twice* DULOXETINE 60 MG CAPSULE,MARIA EUGENIA* Take 1 capsule by mouth once * ASPIRIN 81 MG TABLET,DELAYED * Take 1 tablet by mouth every * BIPAP Bilevel PAP 15/11 cmH2O with * FUROSEMIDE 40 MG TABLET Take 1 tablet by mouth twice * ALBUTEROL SULFATE HFA 90 MCG/* Inhale 2 Puffs as instructed * COMPOUNDED PRESCRIPTION Evaluation for diabetic shoes* BLOOD SUGAR DIAGNOSTIC STRIPS Use as directed to check bloo* LANCETS 33 GAUGE Use as directed to check bloo* INCONTINENCE PAD, LINER, DISP* 1 Device as needed (urinary i* ACETAMINOPHEN 325 MG TABLET Take 2 tablets by mouth every* COMPOUNDED PRESCRIPTION BLOOD PRESSURE CUFF FOR HOME * BLOOD-GLUCOSE METER KIT UAD to test blood sugar ALCOHOL SWABS UAD to clean skin before test* FLUTICASONE 250 MCG-SALMETERO* Inhale 1 Puff as instructed t* Problem List As Of Date 11/27/2017 Noted Resolved SUBJECTIVE TINNITUS [H93.19] INVALID FOR* Obstructive sleep apnea [G47.33] INVALID FOR* Hyperlipidemia [E78.5] INVALID FOR* Coronary disease [I25.10] INVALID FOR* Diabetes mellitus, type II ([facility]) [E11.9] INVALID FOR* Morbid obesity ([facility]) [E66.01] Hypothyroidism [E03.9] Anxiety [F41.9] Sleep apnea [G47.30] 02/14/2017 Essential hypertension [I10] Coronary atherosclerosis of [place] coronary art* AF (paroxysmal atrial fibrillation) ([facility]) [I48.* COPD (chronic obstructive pulmonary disease) (H* GERD without esophagitis [K21.9] Dysphagia [R13.10] Constipation [K59.00] DM type 2 (diabetes mellitus, type 2) ([facility]) [E1* 02/14/2017 Shortness of breath [R06.02] 02/14/2017 Arthritis [M19.90] More... CHF (congestive heart failure) ([facility]) [I50.9] BPPV (benign paroxysmal positional vertigo) [H8*INVALID FOR* RLS (restless legs syndrome) [G25.81] INVALID FOR* Iron deficiency concern: RE RLS [E61.1] INVALID FOR* Tubular adenoma [D36.9] INVALID FOR* Incontinence [R32] More... Gastroparesis [K31.84] INVALID FOR* Pre-op testing [Z01.818] INVALID FOR* More... Prescriptions ordered this encounter Disp Refills Start End COMPOUNDED PRESCRIPTION 1 Ea* 0 11/28/2017 Class: Print RX Sig: OCD Titration for portable oxygen concentrator Oxygen Flow Rate between 2-6 liters. To keep oxygen saturation at or above 92%. Encounter Status:Closed by SAAD SILVESTRE on 11/28/17 PROGRESS Observed: 11/26/2017 Status: COMPLETED Source: [facility] 2:40 PM [facility] REPOSITORY HNO ID: [id number] Author: Clayton Serna Ma Service: (none) Author Type: (none) Type: Progress Notes Filed: 11/26/2017 2:41 PM Note Text: Patient notified - verbalized understanding. Will see MR tomorrow. PROGRESS Observed: 11/26/2017 Status: COMPLETED Source: [place] 1:24 PM [facility] REPOSITORY HNO ID: [id number] Author: Nanda Rodriguez) Brian Service: (none) Author Type: Physician Type: Progress Notes Filed: 11/26/2017 2:41 PM Note Text: Low reading at lunch, will cut back on breakfast dose of humalog to 14 units. Work on diet as discussed previously. Follow up with CLIENT TECHNICAL SPECIALIST tomorrow regarding leg wound. PROGRESS Observed: 11/26/2017 Status: COMPLETED Source: [place] 12:44 PM [facility] REPOSITORY HNO ID: [id number] Author: Saad Allen) Larry Service: (none) Author Type: Registered Nurse Type: Progress Notes Filed: 11/26/2017 1:02 PM Note Text: PRIMARY CARE COORDINATION FOLLOW-UP NOTE Provider Action/ROSEMARIEI Blister on leg-appt with CLIENT TECHNICAL SPECIALIST tomorrow Please see BS Patient phones requesting refills as follows: Pending Prescriptions Disp Refills PROMETHAZINE 25 MG TABLET 20 tablet 0 Sig: Take 1 tablet by mouth every 6 hours as needed. SCOTT: No Please review and advise. Patient identified by name and date of . YES Spoke to patient Concerns: Patient states she noted a large blister on her lower leg 2 days ago and now area is reddened. Appt offered for today but doesn't have a ride. Scheduled appt with CLIENT TECHNICAL SPECIALIST on 11/27 Also states she is very nauseated and is out of Phenergan. Gastro surgery is scheduled for 12/19. States she has been very dizzy but hasn't fallen Tamia Rodriguez Henry is a 62 year old female who reports glucose readings as noted. DATE 11/26 11/25 11/24 11/23 11/22 11/21 11/20 Fasting 105 101 154 86 214 198 127 Before Meal 197 65 173 91 128 Before Meal 164 197 129 117 Any low blood sugars during this period of reporting Yes Patient's diabetes medications as follows: insulin lispro (HUMALOG KWIKPEN) 200 unit/mL Inject subcutaneously 16 units with breakfast, 22 units with lunch, and 24 units with dinner insulin glargine (LANTUS SOLOSTAR) 100 unit/mL Inject 60 units subcutaneously twice daily metFORMIN ER (GLUCOPHAGE XR) 500 mg Take 2 tablets by mouth twice daily. Cleaning Supervisor plan for next outreach: Will follow up one month Signature Saad Silvestre RN November 26, 2017 CNPTOUTREACH Observed: 11/26/2017 Status: COMPLETED Source: [place] 12:00 AM [facility] REPOSITORY Patient Outreach (FAMPWS) TAMIA PANDA ([id number]) 1955 F Date Time Provider Department 11/26/17 SAAD SILVESTRE (NINA) CIERA During your visit today, we recorded the following information about you: Saad Silvestre RN 11/26/2017 1:02 PM Signed PRIMARY CARE COORDINATION FOLLOW-UP NOTE Provider Action/FYI Blister on leg-appt with CLIENT TECHNICAL SPECIALIST tomorrow Please see BS Patient phones requesting refills as follows: Pending Prescriptions Disp Refills PROMETHAZINE 25 MG TABLET 20 tablet 0 Sig: Take 1 tablet by mouth every 6 hours as needed. SCOTT: No Please review and advise. Patient identified by name and date of . YES Spoke to patient Concerns: Patient states she noted a large blister on her lower leg 2 days ago and now area is reddened. Appt offered for today but doesn't have a ride. Scheduled appt with CLIENT TECHNICAL SPECIALIST on 11/27 Also states she is very nauseated and is out of Phenergan. Gastro surgery is scheduled for 12/19. States she has been very dizzy but hasn't fallen Tamia Panda is a 62 year old female who reports glucose readings as noted. DATE 11/26 11/25 11/24 11/23 11/22 11/21 11/20 Fasting 105 101 154 86 214 198 127 Before Meal 197 65 173 91 128 Before Meal 164 197 129 117 Any low blood sugars during this period of reporting Yes Patient's diabetes medications as follows: insulin lispro (HUMALOG KWIKPEN) 200 unit/mL Inject subcutaneously 16 units with breakfast, 22 units with lunch, and 24 units with dinner insulin glargine (LANTUS SOLOSTAR) 100 unit/mL Inject 60 units subcutaneously twice daily metFORMIN ER (GLUCOPHAGE XR) 500 mg Take 2 tablets by mouth twice daily. 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 Work on diet as discussed previously. Follow up with CLIENT TECHNICAL SPECIALIST tomorrow regarding leg wound. Clayton Serna Ma 11/26/2017 2:41 PM Signed Patient notified - verbalized understanding. Will see MR tomorrow. Allergies As of Date: 11/26/2017 Noted Allergy Reaction ADHESIVE TAPE (ROSINS) 04/04/2015 5 - Intolerance Comments: Surgical tape leaves rash Irritates skin badly and blisters along with medical tape CATS 04/10/2016 14 - Other: See Comments Comments: Congested and itchy, difficulty breathing DOGS 04/10/2016 14 - Other: See Comments Comments: Congestion, sneezing, and difficulty breathing ORPHENADRINE 04/10/2016 16 - Unknown CIPROFLOXACIN 12/11/2011 14 - Other: See Comments Comments: Red, hot, itchy rash KEFLEX (CEPHALEXIN) 07/10/2016 4 - Hives NIACIN 04/04/2015 16 - Unknown NIACIN PREPARATIONS 10/18/2004 PENICILLIN G 10/18/2004 PENICILLINS 04/04/2015 16 - Unknown REGLAN (METOCLOPRAMIDE HCL) 03/04/2017 14 - Other: See Comments Comments: Unable to sleep XANTHINES 10/18/2004 Date Reviewed: 11/14/2017 Reviewed by: Clayton Serna Ma - Fully Assessed Reason for Visit: Glove Cuffer - Patient Initiated [3614] Primary Visit Diagnosis:Nausea [R11.0] Other Visit Diagnosis:Type 2 diabetes mellitus with hyperglycemia, with long-term current use of insulin (HCC) [E11.65, Z79.4] Order(s):promethazine (PHENERGAN) 25 mg tabletTake 1 tablet by mouth every 6 hours as needed.Disp: 20 tabletRfl: 0 insulin lispro (HUMALOG KWIKPEN INSULIN) 200 unit/mL (3 mL) injectionInject subcutaneously 14 units with breakfast, 22 units with lunch, and 24 units with dinnerDisp: 18 mLRfl: 5 Prescriptions as of 11/26/2017 Sig: PROMETHAZINE 25 MG TABLET Take 1 tablet by mouth every * INSULIN LISPRO (U-200) 200 UN* Inject subcutaneously 14 unit* LYRICA 100 MG CAPSULE TAKE 1 CAPSULE BY MOUTH THREE* CAPSAICIN 0.075 % TOPICAL CRE* Apply 1 application to affect* ULTICARE PEN NEEDLE 31 GAUGE * USE DIRECTED. TO INJECT IN* VITAMIN C 500 MG TABLET TAKE 1 TABLET BY MOUTH DAILY FERROUS GLUCONATE 324 MG (38 * TAKE 1 TABLET BY MOUTH DAILY * INSULIN GLARGINE (U-100) 100 * Inject 60 units subcutaneousl* STOOL SOFTENER 100 MG CAPSULE TAKE 1 CAPSULE BY MOUTH DAILY CLAUDIA-KYLE 8.6 MG TABLET TAKE 1 TABLET BY MOUTH TWICE * ISOSORBIDE MONONITRATE ER 60 * Take 1.5 tablets by mouth onc* ATORVASTATIN 40 MG TABLET TAKE 1 TABLET BY MOUTH DAILY DILTIAZEM SR 180 MG 24 HR CAP TAKE 1 CAPSULE BY MOUTH EVERY* LEVOTHYROXINE 100 MCG TABLET TAKE 1 TABLET BY MOUTH EVERY * OMEPRAZOLE 20 MG CAPSULE,MARIA EUGENIA* TAKE 1 CAPSULE BY MOUTH EVERY* ELIQUIS 2.5 MG TABLET TAKE 1 TABLET BY MOUTH TWICE * NITROGLYCERIN 0.4 MG SUBLINGU* DISSOLVE 1 TAB UNDER THE TONG* METOPROLOL TARTRATE 50 MG TAB* Take 1 tablet by mouth twice * GLUCOSE 4 GRAM CHEWABLE TABLET Take 4 tablets by mouth as ne* OXYGEN (HOME THERAPY) Inhale 3 L/min as instructed * FLUTICASONE 50 MCG/ACTUATION * Use 2 Sprays in each nostril * METFORMIN ER 500 MG TABLET,EX* Take 2 tablets by mouth twice* DULOXETINE 60 MG CAPSULE,MARIA EUGENIA* Take 1 capsule by mouth once * ASPIRIN 81 MG TABLET,DELAYED * Take 1 tablet by mouth every * BIPAP Bilevel PAP 15/11 cmH2O with * FUROSEMIDE 40 MG TABLET Take 1 tablet by mouth twice * ALBUTEROL SULFATE HFA 90 MCG/* Inhale 2 Puffs as instructed * COMPOUNDED PRESCRIPTION Evaluation for diabetic shoes* BLOOD SUGAR DIAGNOSTIC STRIPS Use as directed to check bloo* LANCETS 33 GAUGE Use as directed to check bloo* INCONTINENCE PAD, LINER, DISP* 1 Device as needed (urinary i* ACETAMINOPHEN 325 MG TABLET Take 2 tablets by mouth every* COMPOUNDED PRESCRIPTION BLOOD PRESSURE CUFF FOR HOME * BLOOD-GLUCOSE METER KIT UAD to test blood sugar ALCOHOL SWABS UAD to clean skin before test* FLUTICASONE 250 MCG-SALMETERO* Inhale 1 Puff as instructed t* Problem List As Of Date 11/26/2017 Noted Resolved SUBJECTIVE TINNITUS [H93.19] INVALID FOR* Obstructive sleep apnea [G47.33] INVALID FOR* Hyperlipidemia [E78.5] INVALID FOR* Coronary disease [I25.10] INVALID FOR* Diabetes mellitus, type II ([facility]) [E11.9] INVALID FOR* Morbid obesity ([facility]) [E66.01] Hypothyroidism [E03.9] Anxiety [F41.9] Sleep apnea [G47.30] 02/14/2017 Essential hypertension [I10] Coronary atherosclerosis of port lions coronary art* AF (paroxysmal atrial fibrillation) ([facility]) [I48.* COPD (chronic obstructive pulmonary disease) (H* GERD without esophagitis [K21.9] Dysphagia [R13.10] Constipation [K59.00] DM type 2 (diabetes mellitus, type 2) ([facility]) [E1* 02/14/2017 Shortness of breath [R06.02] 02/14/2017 Arthritis [M19.90] More... CHF (congestive heart failure) ([facility]) [I50.9] BPPV (benign paroxysmal positional vertigo) [H8*INVALID FOR* RLS (restless legs syndrome) [G25.81] INVALID FOR* Iron deficiency concern: RE RLS [E61.1] INVALID FOR* Tubular adenoma [D36.9] INVALID FOR* Incontinence [R32] More... Gastroparesis [K31.84] INVALID FOR* Pre-op testing [Z01.818] INVALID FOR* More... Prescriptions ordered this encounter Disp Refills Start End PROMETHAZINE 25 MG TABLET 20 t* 0 11/26/2017 Route: ORAL Sig: Take 1 tablet by mouth every 6 hours as needed. INSULIN LISPRO (U-200) 200 UNIT/ML (* 18 mL 5 11/26/2017 Class: Med Update Sig: Inject subcutaneously 14 units with breakfast, 22 units with lunch, and 24 units with dinner Medications Discontinued During This Encounter promethazine (PHENERGAN) 25 mg tablet 20 t* 0 08/28/2017 11/26/2017 Route: ORAL Sig: Take 1 tablet by mouth every 6 hours as needed. Disc: Reason for discontinue is not on file. insulin lispro (HUMALOG KWIKPEN) 200* 18 mL 5 11/07/2017 11/26/2017 Sig: Inject subcutaneously 16 units with breakfast, 22 units with lunch, and 24 units with dinner Disc: Reason for discontinue is not on file. Encounter Status:Closed by CLATYON SERNA MA on 11/26/17 PROGRESS Observed: 11/14/2017 Status: COMPLETED Source: [place] 12:39 PM [facility] REPOSITORY HNO ID: [id number] Author: Saad (Nina) Larry Service: (none) Author Type: Registered Nurse Type: Progress Notes Filed: 11/14/2017 1:07 PM Note Text: PRIMARY CARE COORDINATION IN OFFICE VISIT WITH PCP Patient has been identified by name and date of . PCP Assessment/Plan: Reviewed PCP plan with patient using Teach Back Discussed upcoming gastric surgery with Dr. Hanna Discussed scheduling appt with Dr. Baez's CLIENT TECHNICAL SPECIALIST, if pt doesn't feel comfortable going to the office since the of Dr. Baez she would like to transfer cardiac care to Dr. Valentino. [facility] Plan of Care: Patient goals: Pt will keep appointment with Dr. Baez's CLIENT TECHNICAL SPECIALIST PCC Interventions: TC to [facility], cardiology, scheduled appt with Dr. Baez's CLIENT TECHNICAL SPECIALIST for pt for 11/19 at 9:00. TC to pt to inform of appt date and time, verbalized understanding. TC to [facility] Ferreira, asked executive coach to fax left hip x- ray and visit note, she will fax immediately TC to Dr. Ford, asked to fax pt's last visit note, she will fax Next Office Visit: 12/29/2017 Plan For Next Call: One month Saad Silvestre RN November 14, 2017 PROGRESS Observed: 11/14/2017 Status: COMPLETED Source: [place]LL 10:49 AM [facility] REPOSITORY O ID: [id number] Author: Nanda Rodriguez) Brian Service: (none) Author Type: Physician Type: Progress Notes Filed: 11/14/2017 1:39 PM Note Text: Chief Complaint Patient presents with: F/U 3 Month HPI Tamia Panda is a 62 year old female who presents here today for 3 month follow up appointment. Since last OV, patient has followed up with Dr. Hanna (gastro) regarding gastroparesis. Plan at this time is to proceed with endoscopic per oral pyloromyotomy with Dr. Connolly and surgery day is set for 12/19. Will go through their office for pre op testing. Patient has been taking insulins as prescribed for her DM. Has not had any sugars less than 90 since last OV. Today's readings were in the 120-130 range. Diabetic neuropathy in feet and toes still uncontrolled with Lyrica 100 mg TID. Discussed trial of capsaicin cream TID-QID which she is agreeable to. Is without her oxygen today as she forgot it at home. Denies SOB at this time. Patient is saturating at 93% on RA while seated in her wheelchair. Missed her appointment with CLIENT TECHNICAL SPECIALIST at multimedia artist's office after Dr. Baez . Patient was too upset to go. Would consider going back to see them. Saad Silvestre will help set up repeat appointment. Admits to recent tachycardia at night and required nitro for chest pain 2-3 weeks ago. Symptoms have not returned. Patient is due for her mammogram, needs order today. Past medical history, appointments, medications, allergies reviewed. Previous Medical History PAST MEDICAL HISTORY Diagnosis Date - Acute chronic obstructive pulmonary disease with respiratory failure (HCC) - AF (paroxysmal atrial fibrillation) ([facility]) - Anxiety - Arthritis Seeing Dr Elliott - Cervical cancer ([facility]) hysterectomy - CHF (congestive heart failure) ([facility]) - Constipation - COPD (chronic obstructive pulmonary disease) ([facility]) - Coronary atherosclerosis of port lions coronary artery Seeing Dr. Sosa - Cough - DDD (degenerative disc disease), lumbar - DM type 2 (diabetes mellitus, type 2) ([facility]) Seeing Dr. Foley for podiatry - DVT (deep venous thrombosis) ([facility]) Post op INA, BSO. - Dysphagia Seeing Dr. Beaulieu - Emphysema lung ([facility]) - Essential hypertension - Functional dyspepsia - Gastroparesis 2017 mild - GERD without esophagitis - Headache - History of colon polyps 11/28/2016 - Hyperlipidemia - Hypothyroidism - Incontinence Seeing Dr. Chapman - Morbid obesity ([facility]) - Muscle weakness - Nausea [facility] - PE (pulmonary thromboembolism) ([facility]) Post op INA/BSO. - Pneumonia - RLS (restless legs syndrome) - Shortness of breath - Sleep apnea using oxygen currently, not on CPAP - Unsteadiness on feet - Wheezing Previous Surgical History PAST SURGICAL HISTORY Procedure Laterality Date - CHOLECYSTECTOMY - COLONOS W/REM POLYP SNARE 11/28/2016 Repeat 2020 - COLONOSCOPY Has had multiple in the past with polyps, cannot remember dates - [facility]BX 11/28/2016 - HERNIA REPAIR HX multiple - KNEE SURGERY HX Left x3 for torn cartilage - NASAL SURGERY PROCEDURE sinus - TOTAL ABDOM HYSTERECTOMY 1987 Cervical cancer - TUBAL LIGATION HX - WRIST SURGERY HX Right ganglion cyst removal x2 Family History FAMILY HISTORY Problem Relation Age of Onset - Coronary Artery Disease Mother - Coronary Artery Disease Father - Asthma Brother - Coronary Artery Disease Brother - Diabetes Sister - Hypertension Sister - Diabetes Sister - Heart Sister - Allergies Sister - Asthma Sister - Allergies Sister - Emphysema Sister Early stages - COPD Paternal Uncle Patient Allergies ALLERGIES Allergen Reactions - Adhesive Tape (Adrienne* Intolerance Surgical tape leaves rash Irritates skin badly and blisters along with medical tape - Cats Other: See Comments Congested and itchy, difficulty breathing - Dogs Other: See Comments Congestion, sneezing, and difficulty breathing - Orphenadrine Unknown - Ciprofloxacin Other: See Comments Red, hot, itchy rash - Keflex [Cephalexin] Hives - Niacin Unknown - Niacin Preparations - Penicillin G - Penicillins Unknown - Reglan [Metoclopram* Other: See Comments Unable to sleep - Xanthines Current Medications Current Outpatient Prescriptions on File Prior to Visit: insulin lispro (HUMALOG KWIKPEN) 200 unit/mL (3 mL) injection Inject subcutaneously 16 units with breakfast, 22 units with lunch, and 24 units with dinner ULTICARE PEN NEEDLE 31 gauge x 5/16 ndle USE DIRECTED. TO INJECT INSULINS VITAMIN C 500 mg tablet TAKE 1 TABLET BY MOUTH DAILY Ferrous Gluconate (FERGON) 324 mg (38 mg iron) tablet TAKE 1 TABLET BY MOUTH DAILY WITH BREAKFAST insulin glargine (LANTUS SOLOSTAR) 100 unit/mL (3 mL) inpn Inject 60 units subcutaneously twice daily STOOL SOFTENER 100 mg capsule TAKE 1 CAPSULE BY MOUTH DAILY CLAUDIA-KYLE 8.6 mg tab TAKE 1 TABLET BY MOUTH TWICE A DAY isosorbide mononitrate ER (IMDUR) 60 mg 24 hr tablet Take 1.5 tablets by mouth once daily. In the morning atorvastatin (LIPITOR) 40 mg tablet TAKE 1 TABLET BY MOUTH DAILY diltiazem CD (CARDIZEM CD, CARTIA XT) 180 mg 24 hr capsule TAKE 1 CAPSULE BY MOUTH EVERY MORNING levothyroxine (SYNTHROID) 100 mcg tablet TAKE 1 TABLET BY MOUTH EVERY MORNING omeprazole (PRILOSEC) 20 mg capsule TAKE 1 CAPSULE BY MOUTH EVERY MORNING ELIQUIS 2.5 mg tab tab(s) TAKE 1 TABLET BY MOUTH TWICE A DAY LYRICA 100 mg capsule TAKE 1 CAPSULE BY MOUTH THREE TIMES A DAY promethazine (PHENERGAN) 25 mg tablet Take 1 tablet by mouth every 6 hours as needed. nitroglycerin sublingual (NITROQUICK) 0.4 mg SL tablet DISSOLVE 1 TAB UNDER THE TONGUE NEEDED FOR CHEST PAIN EVERY 5 MINUTES UP TO 3 TIMES. IF NO RELIEF CALL 911. metoprolol tartrate, short acting, (LOPRESSOR) 50 mg tablet Take 1 tablet by mouth twice daily. glucose 4 gram chewable tablet Take 4 tablets by mouth as needed for Low Blood Sugar. OXYGEN, HOME THERAPY, Inhale 3 L/min as instructed as directed. fluticasone (FLONASE) 50 mcg/actuation nasal spray Use 2 Sprays in each nostril once daily. metFORMIN ER (GLUCOPHAGE XR) 500 mg 24 hr tablet Take 2 tablets by mouth twice daily. DULoxetine (CYMBALTA) 60 mg capsule Take 1 capsule by mouth once daily. aspirin, enteric coated (ASPIRIN, ENTERIC COATED) 81 mg EC tablet Take 1 tablet by mouth every morning. BIPAP Bilevel PAP 15/11 cmH2O with 2 LPM oxygen bleed in, mask, tubing, filters, heated humidity, lifetime supplies. Please fax 30 day compliance download to [phone]. Dx: G47.33, G47.39. DME: [facility] furosemide (LASIX) 40 mg tablet Take 1 tablet by mouth twice daily. albuterol HFA (VENTOLIN HFA) 90 mcg/actuation inhaler Inhale 2 Puffs as instructed every 4 hours as needed for Wheezing/Shortness of Breath. COMPOUNDED PRESCRIPTION Evaluation for diabetic shoes and inserts Dx: E11.65, Z79.4 blood sugar diagnostic (ONETOUCH ULTRA TEST) test strip Use as directed to check blood sugar 4-5 times daily DX: E11.65 Insulin: yes DM: yes lancets (ONE TOUCH DELICA) 33 gauge misc Use as directed to check blood sugar 4-5 times daily DX: E11.65 Insulin: yes DM: yes Incontinence Pad, Liner, Disp pads 1 Device as needed (urinary incontinence). Prevail incontinence pads. Dx: urinary incontinence. Size: small acetaminophen (TYLENOL) 325 mg tablet Take 2 tablets by mouth every 6 hours as needed for Pain. Blood Pressure Cuff - Home Use BLOOD PRESSURE CUFF FOR HOME USE. DX: LABILE BLOOD PRESSURE Blood-Glucose Meter (ONETOUCH ULTRA2) monitoring kit UAD to test blood sugar Alcohol Swabs padm UAD to clean skin before testing blood sugar and injecting insulins. fluticasone-salmeterol (ADVAIR DISKUS) 250-50 mcg/dose dsdv Inhale 1 Puff as instructed twice daily. No current facility-administered medications on file prior to visit. 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 Social History Main Topics Smoking status: Former Smoker Packs/day: 1.00 Years: 28.00 Types: Cigarettes Start date: 1978 Quit date: 09/22/2005 Smokeless status: Never Used Comment: Father smoked in childhood. 2nd spouse smoked in home. Alcohol use: No Drug use: No Sexual activity: No Social History Narrative 1 year in current home. No basement, 1 parakeet. Room A/C. Electric baseboard heat. Review of Symptoms REVIEW OF SYSTEMS GENERAL: No weight loss, malaise or fevers NECK: Negative for lumps, goiter, pain and significant neck swelling RESPIRATORY: Chronic dyspnea, Wheezing CARDIOVASCULAR: See HPI GI: No vomiting, or diarrhea SKIN: Negative for lesions, rash, and itching EXAM: BP 104/74 Pulse 62 Temp 36.8 ?C (98.2 ?F) (Temporal Artery) Resp 18 SpO2 91% General Appearance: Well appearing, alert, in no acute distress, well-hydrated, well nourished.. Skin: Skin color, texture, turgor normal, no suspicious rashes or lesions. Lungs: decreased breath sounds bilaterally without wheezing. Heart: RRR without murmur, gallop, or rubs. No ectopy. Abdomen: Normal abdominal exam, Abdomen soft, non-tender. Bowel sounds normal. No masses, organomegaly. Extremities: No deformities, edema, skin discoloration, clubbing or cyanosis. Good capillary refill. . Health Maintenance List HPV EVERY 5 YEARS due on 1985 LDL due on 07/20/2017 MAMMOGRAM due on 10/17/2017 HBA1C due on 01/26/2018 DIABETIC FOOT EXAM due on 06/03/2018 URINE ALBUMIN CREATININE RATIO due on 06/19/2018 DILATED RETINAL EXAM due on 07/03/2018 COLORECTAL CANCER SCREENING,SEE MODIFIER due on 11/30/2019 PAP EVERY 5 YEARS due on 11/27/2021 TETANUS due on 10/02/2026 ONE PNEUMOVAX PRIOR TO AGE 65 Completed INFLUENZA Completed HEPATITIS C SCREENING Completed Data reviewed Component Latest Ref Rng AND Units 07/29/2017 Hemoglobin A1C 4.3 - 5.6 % 6.1 (H) Estimated Average Glucose mg/dL 128 CK 42 - 196 U/L 34 (L) LD 135 - 214 U/L 282 (H) TSH 0.400 - 5.500 uU/mL 0.630 Free T4 0.9 - 1.7 ng/dL 1.4 ASSESSMENT/PLAN: 1. Type 2 diabetes mellitus with diabetic neuropathy, with long-term current use of insulin (HCC) - ICD9: 250.60, 357.2, V58.67, ICD10: E11.40, Z79.4 (primary diagnosis) Controlled. - Continue current medications - Blood glucose monitoring on a four times a day schedule - Encouraged regular aerobic exercise and weight loss - Follow up in 3 months, sooner should any other issues arise. - HGB A1C - LIPID PANEL BASIC 2. Neuropathy ([facility]) - ICD9: 355.9, ICD10: G62.9 Will start capsaicin cream and have patient call if ineffective. - CAPSAICIN 0.075 % TOPICAL CREAM 3. Gastroparesis - ICD9: 536.3, ICD10: K31.84 Patient to follow up with gastroenterology as recommended. 4. Chronic obstructive pulmonary disease, unspecified COPD type ([facility]) - ICD9: 496, ICD10: J44.9 Continue current aerosol regimen and oxygen at home at 3 L via NC as previously recommended. 5. Essential hypertension - ICD9: 401.9, ICD10: I10 - good control - Continue current medication(s) - Encouraged dietary sodium restriction/DASH diet - Recommended regular aerobic exercise. - Reviewed risks of HTN and principles of treatment - Goal of BP <140/90 6. Coronary artery disease with unstable angina pectoris, unspecified vessel or lesion type, unspecified whether port lions or transplanted heart ([facility]) - ICD9: 414.00, 411.1, ICD10: I25.110 Patient to follow up with Dr. Baez's office and continue current regimen. Has nitro PRN for symptoms 7. Screening mammogram, encounter for - ICD9: V76.12, ICD10: Z12.31 - Set up for mammogram, yearly mammogram recommended - [facility] SCREENING 8. AF (paroxysmal atrial fibrillation) ([facility]) - ICD9: 427.31, ICD10: I48.0 Rate controlled. Continue current regimen. 9. Congestive heart failure, unspecified congestive heart failure chronicity, unspecified congestive heart failure type ([facility]) - ICD9: 428.0, ICD10: I50.9 No sign of fluid overload. Continue current regimen, follow up with cardiology. 10. Obesity, Class III, BMI 40-49.9 (morbid obesity) ([facility]) - ICD9: 278.01, ICD10: E66.01 Patient to work on healthy diet. Will recheck at future visit. I spent 40 minutes in the visit, with more than 50% of the total [id number] time of the visit in counseling / coordination of care. Nanda Oliveira MD CNPTOUTREACH Observed: 11/14/2017 Status: COMPLETED Source: RUSSELL 12:00 AM [facility] REPOSITORY Patient Outreach ([facility]) TAMIA APNDA ([id number]) 1955 F Date Time Provider Department 11/14/17 SAAD SILVESTRE (RN) [facility] During your visit today, we recorded the following information about you: Saad Silvestre RN 11/14/2017 1:07 PM Signed PRIMARY CARE COORDINATION IN OFFICE VISIT WITH PCP Patient has been identified by name and date of . PCP Assessment/Plan: Reviewed PCP plan with patient using Teach Back Discussed upcoming gastric surgery with Dr. Hanna Discussed scheduling appt with Dr. Baez's CLIENT TECHNICAL SPECIALIST, if pt doesn't feel comfortable going to the office since the of Dr. Baez she would like to transfer cardiac care to [facility] Plan of Care: Patient goals: Pt will keep appointment with Dr. Baez's CLIENT TECHNICAL SPECIALIST PCC Interventions: TC to [facility], cardiology, scheduled appt with Dr. Baez's CLIENT TECHNICAL SPECIALIST for pt for 11/19 at 9:00. TC to pt to inform of appt date and time, verbalized understanding. TC to Kinj[facility] Ferreira, asked executive coach to fax left hip x- ray and visit note, she will fax immediately TC to Dr. Ford, asked to fax pt's last visit note, she will fax Next Office Visit: 12/29/2017 Plan For Next Call: One month Saad Silvestre RN November 14, 2017 Allergies As of Date: 11/14/2017 Noted Allergy Reaction ADHESIVE TAPE (ROSINS) 04/04/2015 5 - Intolerance Comments: Surgical tape leaves rash Irritates skin badly and blisters along with medical tape CATS 04/10/2016 14 - Other: See Comments Comments: Congested and itchy, difficulty breathing DOGS 04/10/2016 14 - Other: See Comments Comments: Congestion, sneezing, and difficulty breathing ORPHENADRINE 04/10/2016 16 - Unknown CIPROFLOXACIN 12/11/2011 14 - Other: See Comments Comments: Red, hot, itchy rash KEFLEX (CEPHALEXIN) 07/10/2016 4 - Hives NIACIN 04/04/2015 16 - Unknown NIACIN PREPARATIONS 10/18/2004 PENICILLIN G 10/18/2004 PENICILLINS 04/04/2015 16 - Unknown REGLAN (METOCLOPRAMIDE HCL) 03/04/2017 14 - Other: See Comments Comments: Unable to sleep XANTHINES 10/18/2004 Date Reviewed: 11/14/2017 Reviewed by: Clayton Serna Ma - Fully Assessed Reason for Visit: Glove Cuffer-In Office Visit [7800] Prescriptions as of 11/14/2017 Sig: CAPSAICIN 0.075 % TOPICAL CRE* Apply 1 application to affect* INSULIN LISPRO (U-200) 200 UN* Inject subcutaneously 16 unit* ULTICARE PEN NEEDLE 31 GAUGE * USE DIRECTED. TO INJECT IN* VITAMIN C 500 MG TABLET TAKE 1 TABLET BY MOUTH DAILY FERROUS GLUCONATE 324 MG (38 * TAKE 1 TABLET BY MOUTH DAILY * INSULIN GLARGINE (U-100) 100 * Inject 60 units subcutaneousl* STOOL SOFTENER 100 MG CAPSULE TAKE 1 CAPSULE BY MOUTH DAILY CLAUDIA-KYLE 8.6 MG TABLET TAKE 1 TABLET BY MOUTH TWICE * ISOSORBIDE MONONITRATE ER 60 * Take 1.5 tablets by mouth onc* ATORVASTATIN 40 MG TABLET TAKE 1 TABLET BY MOUTH DAILY DILTIAZEM SR 180 MG 24 HR CAP TAKE 1 CAPSULE BY MOUTH EVERY* LEVOTHYROXINE 100 MCG TABLET TAKE 1 TABLET BY MOUTH EVERY * OMEPRAZOLE 20 MG CAPSULE,MARIA EUGENIA* TAKE 1 CAPSULE BY MOUTH EVERY* ELIQUIS 2.5 MG TABLET TAKE 1 TABLET BY MOUTH TWICE * LYRICA 100 MG CAPSULE TAKE 1 CAPSULE BY MOUTH THREE* PROMETHAZINE 25 MG TABLET Take 1 tablet by mouth every * NITROGLYCERIN 0.4 MG SUBLINGU* DISSOLVE 1 TAB UNDER THE TONG* METOPROLOL TARTRATE 50 MG TAB* Take 1 tablet by mouth twice * GLUCOSE 4 GRAM CHEWABLE TABLET Take 4 tablets by mouth as ne* OXYGEN (HOME THERAPY) Inhale 3 L/min as instructed * FLUTICASONE 50 MCG/ACTUATION * Use 2 Sprays in each nostril * METFORMIN ER 500 MG TABLET,EX* Take 2 tablets by mouth twice* DULOXETINE 60 MG CAPSULE,MARIA EUGENIA* Take 1 capsule by mouth once * ASPIRIN 81 MG TABLET,DELAYED * Take 1 tablet by mouth every * BIPAP Bilevel PAP 15/11 cmH2O with * FUROSEMIDE 40 MG TABLET Take 1 tablet by mouth twice * ALBUTEROL SULFATE HFA 90 MCG/* Inhale 2 Puffs as instructed * COMPOUNDED PRESCRIPTION Evaluation for diabetic shoes* BLOOD SUGAR DIAGNOSTIC STRIPS Use as directed to check bloo* LANCETS 33 GAUGE Use as directed to check bloo* INCONTINENCE PAD, LINER, DISP* 1 Device as needed (urinary i* ACETAMINOPHEN 325 MG TABLET Take 2 tablets by mouth every* COMPOUNDED PRESCRIPTION BLOOD PRESSURE CUFF FOR HOME * BLOOD-GLUCOSE METER KIT UAD to test blood sugar ALCOHOL SWABS UAD to clean skin before test* FLUTICASONE 250 MCG-SALMETERO* Inhale 1 Puff as instructed t* Problem List As Of Date 11/14/2017 Noted Resolved SUBJECTIVE TINNITUS [H93.19] INVALID FOR* Obstructive sleep apnea [G47.33] INVALID FOR* Hyperlipidemia [E78.5] INVALID FOR* Coronary disease [I25.10] INVALID FOR* Diabetes mellitus, type II ([facility]) [E11.9] INVALID FOR* Morbid obesity ([facility]) [E66.01] Hypothyroidism [E03.9] Anxiety [F41.9] Sleep apnea [G47.30] 02/14/2017 Essential hypertension [I10] Coronary atherosclerosis of port lions coronary art* AF (paroxysmal atrial fibrillation) ([facility]) [I48.* COPD (chronic obstructive pulmonary disease) (H* GERD without esophagitis [K21.9] Dysphagia [R13.10] Constipation [K59.00] DM type 2 (diabetes mellitus, type 2) ([facility]) [E1* 02/14/2017 Shortness of breath [R06.02] 02/14/2017 Arthritis [M19.90] More... CHF (congestive heart failure) ([facility]) [I50.9] BPPV (benign paroxysmal positional vertigo) [H8*INVALID FOR* RLS (restless legs syndrome) [G25.81] INVALID FOR* Iron deficiency concern: RE RLS [E61.1] INVALID FOR* Tubular adenoma [D36.9] INVALID FOR* Incontinence [R32] More... Gastroparesis [K31.84] INVALID FOR* Pre-op testing [Z01.818] INVALID FOR* More... Encounter Status:Closed by LARRYSAAD on 11/14/17 PROGRESS Observed: 11/11/2017 Status: COMPLETED Source: RUSSELL 1:56 PM [facility] [place] REPOSITORY HNO ID: [id number] Author: Nafisa (Rn) NINA Subramanian Service: (none) Author Type: Registered Nurse Type: Progress Notes Filed: 11/11/2017 2:01 PM Note Text: . PROGRESS Observed: 11/05/2017 Status: COMPLETED Source: RUSSELL 2:52 PM [facility] [place] REPOSITORY HNO ID: [id number] Author: Korey Hanna Service: (none) Author Type: Physician Type: Progress Notes Filed: 11/05/2017 3:01 PM Note Text: FOLLOW UP VISIT CHIEF COMPLAINT Patient presents with: Established Patient: Gastroparesis Ms. Panda is here today for follow-up of: Gastroparesis. HPI I saw this 62y/o in f/u for her GP. The smart pill showed isolated gastroparesis. The diarrhea has resolved without specific treatment. The weight is stable at 220. Her blood sugar fluctuates from low 70 to up over 200. Given the volume of meds she is already on as well as the medical issues we are very limited on meds we can use. The QT has been prolonged Almost every ekg. Current Outpatient Prescriptions: VITAMIN C 500 mg tablet TAKE 1 TABLET BY MOUTH DAILY Disp: 30 tablet Rfl: 0 Ferrous Gluconate (FERGON) 324 mg (38 mg iron) tablet TAKE 1 TABLET BY MOUTH DAILY WITH BREAKFAST Disp: 30 tablet Rfl: 0 insulin lispro (HUMALOG KWIKPEN) 200 unit/mL (3 mL) injection Inject subcutaneously 16 units with breakfast, 22 units with lunch, and 24 units with dinner Disp: Rfl: 0 insulin glargine (LANTUS SOLOSTAR) 100 unit/mL (3 mL) inpn Inject 60 units subcutaneously twice daily Disp: Rfl: STOOL SOFTENER 100 mg capsule TAKE 1 CAPSULE BY MOUTH DAILY Disp: 28 capsule Rfl: 3 CLAUDIA-KYLE 8.6 mg tab TAKE 1 TABLET BY MOUTH TWICE A DAY Disp: 56 tablet Rfl: 3 isosorbide mononitrate ER (IMDUR) 60 mg 24 hr tablet Take 1.5 tablets by mouth once daily. In the morning Disp: 30 tablet Rfl: 11 atorvastatin (LIPITOR) 40 mg tablet TAKE 1 TABLET BY MOUTH DAILY Disp: 28 tablet Rfl: 3 diltiazem CD (CARDIZEM CD, CARTIA XT) 180 mg 24 hr capsule TAKE 1 CAPSULE BY MOUTH EVERY MORNING Disp: 28 capsule Rfl: 3 levothyroxine (SYNTHROID) 100 mcg tablet TAKE 1 TABLET BY MOUTH EVERY MORNING Disp: 28 tablet Rfl: 3 omeprazole (PRILOSEC) 20 mg capsule TAKE 1 CAPSULE BY MOUTH EVERY MORNING Disp: 28 capsule Rfl: 3 ELIQUIS 2.5 mg tab tab(s) TAKE 1 TABLET BY MOUTH TWICE A DAY Disp: 56 tablet Rfl: 2 LYRICA 100 mg capsule TAKE 1 CAPSULE BY MOUTH THREE TIMES A DAY Disp: 84 capsule Rfl: 2 promethazine (PHENERGAN) 25 mg tablet Take 1 tablet by mouth every 6 hours as needed. Disp: 20 tablet Rfl: 0 nitroglycerin sublingual (NITROQUICK) 0.4 mg SL tablet DISSOLVE 1 TAB UNDER THE TONGUE NEEDED FOR CHEST PAIN EVERY 5 MINUTES UP TO 3 TIMES. IF NO RELIEF CALL 911. Disp: 25 tablet Rfl: 10 metoprolol tartrate, short acting, (LOPRESSOR) 50 mg tablet Take 1 tablet by mouth twice daily. Disp: Rfl: glucose 4 gram chewable tablet Take 4 tablets by mouth as needed for Low Blood Sugar. Disp: 10 tablet Rfl: 3 OXYGEN, HOME THERAPY, Inhale 3 L/min as instructed as directed. Disp: Rfl: 0 fluticasone (FLONASE) 50 mcg/actuation nasal spray Use 2 Sprays in each nostril once daily. Disp: 16 g Rfl: 5 metFORMIN ER (GLUCOPHAGE XR) 500 mg 24 hr tablet Take 2 tablets by mouth twice daily. Disp: 360 tablet Rfl: 3 DULoxetine (CYMBALTA) 60 mg capsule Take 1 capsule by mouth once daily. Disp: 90 capsule Rfl: 3 aspirin, enteric coated (ASPIRIN, ENTERIC COATED) 81 mg EC tablet Take 1 tablet by mouth every morning. Disp: 90 tablet Rfl: 3 BIPAP Bilevel PAP 15/11 cmH2O with 2 LPM oxygen bleed in, mask, tubing, filters, heated humidity, lifetime supplies. Please fax 30 day compliance download to [phone]. Dx: G47.33, G47.39. DME: [facility] Disp: 1 Device Rfl: 0 furosemide (LASIX) 40 mg tablet Take 1 tablet by mouth twice daily. Disp: Rfl: albuterol HFA (VENTOLIN HFA) 90 mcg/actuation inhaler Inhale 2 Puffs as instructed every 4 hours as needed for Wheezing/Shortness of Breath. Disp: 1 Inhaler Rfl: 5 COMPOUNDED PRESCRIPTION Evaluation for diabetic shoes and inserts Dx: E11.65, Z79.4 Disp: 1 Each Rfl: 0 blood sugar diagnostic (ONETOUCH ULTRA TEST) test strip Use as directed to check blood sugar 4-5 times daily DX: E11.65 Insulin: yes DM: yes Disp: 200 Strip Rfl: 9 lancets (ONE TOUCH DELICA) 33 gauge misc Use as directed to check blood sugar 4-5 times daily DX: E11.65 Insulin: yes DM: yes Disp: 200 Each Rfl: 9 Incontinence Pad, Liner, Disp pads 1 Device as needed (urinary incontinence). Prevail incontinence pads. Dx: urinary incontinence. Size: small Disp: 200 Each Rfl: 11 insulin needles, DISPOSABLE, (BD INSULIN PEN NEEDLE UF) 31 gauge x 5/16 ndle UAD to inject insulins Disp: 200 Each Rfl: 5 acetaminophen (TYLENOL) 325 mg tablet Take 2 tablets by mouth every 6 hours as needed for Pain. Disp: 200 tablet Rfl: 2 Blood Pressure Cuff - Home Use BLOOD PRESSURE CUFF FOR HOME USE. DX: LABILE BLOOD PRESSURE Disp: 1 Device Rfl: 0 Blood-Glucose Meter (ONETOUCH ULTRA2) monitoring kit UAD to test blood sugar Disp: 1 Each Rfl: 0 Alcohol Swabs padm UAD to clean skin before testing blood sugar and injecting insulins. Disp: 300 Each Rfl: 5 fluticasone-salmeterol (ADVAIR DISKUS) 250-50 mcg/dose dsdv Inhale 1 Puff as instructed twice daily. Disp: 1 Inhaler Rfl: 5 No current facility-administered medications for this visit. ALLERGIES Allergen Reactions - Adhesive Tape (Adrienne* Intolerance Surgical tape leaves rash Irritates skin badly and blisters along with medical tape - Cats Other: See Comments Congested and itchy, difficulty breathing - Dogs Other: See Comments Congestion, sneezing, and difficulty breathing - Orphenadrine Unknown - Ciprofloxacin Other: See Comments Red, hot, itchy rash - Keflex [Cephalexin] Hives - Niacin Unknown - Niacin Preparations - Penicillin G - Penicillins Unknown - Reglan [Metoclopram* Other: See Comments Unable to sleep - Xanthines Social History Marital status: Spouse name: Years of education: Number of children: Occupational History 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 Social History Main Topics Smoking status: Former Smoker Packs/day: 1.00 Years: 28.00 Types: Cigarettes Start date: 1978 Quit date: 09/22/2005 Smokeless status: Never Used Comment: Father smoked in childhood. 2nd spouse smoked in home. Alcohol use: No Drug use: No Sexual activity: No Social History Narrative 1 year in current home. No basement, 1 parakeet. Room A/C. Electric baseboard heat. Medical History: No changes since last visit. REVIEW OF SYSTEMS: GENERAL: weight stable, no fevers. CARDIOVASCULAR: No chest pain, no edema RESPIRATORY: No dyspnea : negative LOG CUT OFF SAWYER: negative The remainder of the review of systems are negative. Reviewed with patient during visit today. PHYSICAL EXAMINATION: BP 122/57 Pulse 72 Ht 5' 2 (1.58m) Wt 220 lb (99.8kg) SpO2 94% BMI 40.23 kg/(m2). GENERAL APPEARANCE: Well developed and well nourished. SKIN: Skin color, texture, turgor normal. No rashes or lesions. EYES: Conjunctiva normal without icterus. OROPHARYNX: lips, mucosa, and tongue normal, teeth and gums normal NECK: Supple, full range of motion, no lymphadenopathy, normal thyroid, no carotid bruits and no JVD LUNGS: Normal breath sounds, Clear to auscultation, No wheezes, No crackles. HEART:Normal PMI, Regular rate and rhythm, Normal heart sounds, S1 and S2 and No murmurs. NEURO: Alert and oriented in no acute distress. ABDOMEN: Normal bowel sounds, abdomen flat with no distention, Soft, non-tender, no hepatomegaly. no palpable masses, no abdominal bruits, no rebound and no rigidity. EXTREMITIES:Extremities normal, No deformities, No skin discoloration, No edema . Assessment No diagnosis found. Korey Hanna DO 11/05/2017 PROGRESS Observed: 10/23/2017 Status: COMPLETED Source: RUSSELL 5:17 PM [facility] [place] REPOSITORY HNO ID: [id number] Author: Saad (Nina) Larry Service: (none) Author Type: Registered Nurse Type: Progress Notes Filed: 10/23/2017 5:20 PM Note Text: PRIMARY CARE COORDINATION IN OFFICE VISIT WITH PCP Patient has been identified by name and date of . PCP Assessment/Plan: Reviewed PCP plan with patient using Te[employer] Back Had lengthy discussion regarding patient's diet, not eating routine meals, low blood sugars and not knowing when she is having a low BS PCC Plan of Care: Patient concerns: Concerned about her gastroparesis, the pain and bloating. Has appt with Dr. Hanna on 11/05 Patient goals: Patient will work on eating meals routinely even if it is a small meal. If she doesn't feel like eating she will cut morning Lantus dose in half PCC Interventions: PCC will call [employer] with suggestions for patient and will call about possible supplements Next Office Visit: 11/14/2017 Plan For Next Call: In person visit on 11/14 Saad Silvestre RN October 23, 2017 Observed: 10/23/2017 Status: F Source: RUSSELL URINE CULTURE 4:56 PM [facility] REPOSITORY Sp. Request/Comment: - Specimen received in preservative Culture Result - 10,000 - <50,000 CFU/ml Normal urogenital mario Performed By: #### URCUL #### [facility] [address] [place], [place] [address] URINALYSIS WITH Collected: 10/23/2017 Status: F Source: R[facility]SELL MICROSCOPIC 4:55 PM [facility] REPOSITORY TYPE CODE TESTS RESULT OUT OF RANGE REFERENCE UNITS LAB UCOL Yellow Color Yellow LAB [facility] Clear Clarity Abnormal Cloudy Alert LAB UGLUC Negative mg/dL Glucose, Urine Negative LAB UBIL Negative Bilirubin, Urine Negative LAB UKET Negative Ketones, Urine Negative LAB USPG 1.005-1.030 Specific Dixon, Ur 1.012 LAB UHGB Negative Hemoglobin/Blood, Negative Ur LAB UPH 4.5-8.0 pH 7.0 LAB UPROT Negative mg/dL Protein, Urine Negative LAB UUROB Normal Urobilinogen Normal LAB UNITR Negative Nitrites Negative LAB ULKEST Negative Leukest Abnormal Trace Alert LAB UCOM Comments SEE COMMENT Result Comment: N/A LAB UMCOM Urine SEE Jez Comment COMMENT Result Comment: Result rechecked. LAB UWBC 0-5 /HPF WBC 0-5 LAB URBC 0-3 /HPF RBC 0-3 LAB UCAST 0 /LPF Abnormal Alert Cast SEE COMMENT Result Comment: 1-3 Hyaline Cast LAB UEPI /HPF Epithelial SEE Cells COMMENT Result Comment: Few Squamous Epithelial Cells Performed By: #### UAWMIC #### [facility] [address] [place], [place] [address] PROGRESS Observed: 10/23/2017 Status: COMPLETED Source: RUSSELL 3:56 PM [facility] RE[facility] HNO ID: [id number] Author: Nanda Rodriguez) Brian Service: (none) Author Type: Physician Type: Progress Notes Filed: 10/23/2017 8:49 PM Note Text: Chief Complaint Patient presents with: Hospital Follow Up HPI Tamia Panda is a 62 year old female who presents here today for Hospital Discharge Follow up.. Patient was admitted to [facility] from 10/15-10/17 for acute metabolic encephalopathy due to hypoglycemia and COPD with moderate bronchitis. Was sent to ED after she called in to this office and sounded confused. EMS arrived to find her slurring her speech with a glucose in the 60s. Given oral mucosa and blood sugar dropped into 40s. Was apparently having low glucose readings for the 1-2 weeks prior as well, but not this low. In ED was also found to be SOB with cough and had CXR which showed no pneumonia, but was given levaquin for bronchitis. Give D50 and glucose level slowly improved. Admitted to floor and discussed with family who didn't think she was taking her insulin correctly. Symptoms improved and patient discharged with z pack, prednisone burst for 5 days, and decreased her Lantus to 60 units BID, and meal time insulin to 16 units at breakfast 22 units at lunch, and 24 units at dinner. Since discharge, patient has not had any further low sugars. Lowest reading she has had was yesterday morning at 104. Tested her knowledge about her insulins and has been taking Lantus correctly, but giving herself 28 units at dinner instead of 24. Still not eating lunch regularly and has only had yogurt and orange slices today. Patient has not been selecting meals through [employer] and has not wanted to eat the selection they bring. Does not give meal time insulin when she skips meals. Obtained glucose reading today and she was 75. Discussed cutting lantus in half in the morning on days she has low appetite. Advised drink supplements such as boost or ensure when appetite low, but patient has not been able to afford with food stamps. Will look into powder which she can buy in bulk and is likely cheaper. Discussed MRSA positive sputum culture, taking bactrim as prescribed. Xray pending to be completed when she finishes abx. States that coughing and SOB has improved significantly with treatment. Finished z pack and prednisone burst as prescribed. Past medical history, appointments, medications, allergies reviewed. Previous Medical History PAST MEDICAL HISTORY Diagnosis Date - Acute chronic obstructive pulmonary disease with respiratory failure ([facility]) - AF (paroxysmal atrial fibrillation) ([facility]) - Anxiety - Arthritis Seeing Dr Elliott - Cervical cancer ([facility]) hysterectomy - CHF (congestive heart failure) ([facility]) - Constipation - COPD (chronic obstructive pulmonary disease) ([facility]) - Coronary atherosclerosis of port lions coronary artery Seeing Dr. Sosa - Cough - DDD (degenerative disc disease), lumbar - DM type 2 (diabetes mellitus, type 2) ([facility]) Seeing Dr. Foley for podiatry - DVT (deep venous thrombosis) ([facility]) Post op INA, BSO. - Dysphagia Seeing Dr. Beaulieu - Emphysema lung ([facility]) - Essential hypertension - Functional dyspepsia - Gastroparesis 2016 mild - GERD without esophagitis - Headache - History of colon polyps 11/28/2016 - Hyperlipidemia - Hypothyroidism - Incontinence Seeing Dr. Chapman - Morbid obesity ([facility]) - Muscle weakness - Nausea - PARESH on CPAP [facility] - PE (pulmonary thromboembolism) ([facility]) Post op INA/BSO. - Pneumonia - RLS (restless legs syndrome) - Shortness of breath - Sleep apnea using oxygen currently, not on CPAP - Unsteadiness on feet - Wheezing Previous Surgical History PAST SURGICAL HISTORY Procedure Laterality Date - CHOLECYSTECTOMY - COLONOS W/REM POLYP SNARE 11/28/2016 Repeat 2019 - COLONOSCOPY Has had multiple in the past with polyps, cannot remember dates - EGD W/O BRSH SPECIMEN W/BX 11/28/2016 - HERNIA REPAIR HX multiple - KNEE SURGERY HX Left x3 for torn cartilage - NASAL SURGERY PROCEDURE sinus - TOTAL ABDOM HYSTERECTOMY 1987 Cervical cancer - TUBAL LIGATION HX - WRIST SURGERY HX Right ganglion cyst removal x2 Family History FAMILY HISTORY Problem Relation Age of Onset - Coronary Artery Disease Mother - Coronary Artery Disease Father - Asthma Brother - Coronary Artery Disease Brother - Diabetes Sister - Hypertension Sister - Diabetes Sister - Heart Sister - Allergies Sister - Asthma Sister - Allergies Sister - Emphysema Sister Early stages - COPD Paternal Uncle Patient Allergies ALLERGIES Allergen Reactions - Adhesive Tape (Adrienne* Intolerance Surgical tape leaves rash Irritates skin badly and blisters along with medical tape - Cats Other: See Comments Congested and itchy, difficulty breathing - Dogs Other: See Comments Congestion, sneezing, and difficulty breathing - Orphenadrine Unknown - Ciprofloxacin Other: See Comments Red, hot, itchy rash - Keflex [Cephalexin] Hives - Niacin Unknown - Niacin Preparations - Penicillin G - Penicillins Unknown - Reglan [Metoclopram* Other: See Comments Unable to sleep - Xanthines Current Medications Current Outpatient Prescriptions on File Prior to Visit: VITAMIN C 500 mg tablet TAKE 1 TABLET BY MOUTH DAILY Ferrous Gluconate (FERGON) 324 mg (38 mg iron) tablet TAKE 1 TABLET BY MOUTH DAILY WITH BREAKFAST STOOL SOFTENER 100 mg capsule TAKE 1 CAPSULE BY MOUTH DAILY CLAUDIA-KYLE 8.6 mg tab TAKE 1 TABLET BY MOUTH TWICE A DAY isosorbide mononitrate ER (IMDUR) 60 mg 24 hr tablet Take 1.5 tablets by mouth once daily. In the morning sulfamethoxazole-trimethoprim (BACTRIM DS) 800-160 mg per tablet Take 1 tablet by mouth twice daily for 10 days. atorvastatin (LIPITOR) 40 mg tablet TAKE 1 TABLET BY MOUTH DAILY diltiazem CD (CARDIZEM CD, CARTIA XT) 180 mg 24 hr capsule TAKE 1 CAPSULE BY MOUTH EVERY MORNING levothyroxine (SYNTHROID) 100 mcg tablet TAKE 1 TABLET BY MOUTH EVERY MORNING omeprazole (PRILOSEC) 20 mg capsule TAKE 1 CAPSULE BY MOUTH EVERY MORNING ELIQUIS 2.5 mg tab tab(s) TAKE 1 TABLET BY MOUTH TWICE A DAY LYRICA 100 mg capsule TAKE 1 CAPSULE BY MOUTH THREE TIMES A DAY promethazine (PHENERGAN) 25 mg tablet Take 1 tablet by mouth every 6 hours as needed. insulin lispro (HUMALOG KWIKPEN) 200 unit/mL (3 mL) injection Inject subcutaneously 18 units with breakfast, 24 units with lunch, and 28 units with dinner nitroglycerin sublingual (NITROQUICK) 0.4 mg SL tablet DISSOLVE 1 TAB UNDER THE TONGUE NEEDED FOR CHEST PAIN EVERY 5 MINUTES UP TO 3 TIMES. IF NO RELIEF CALL 911. metoprolol tartrate, short acting, (LOPRESSOR) 50 mg tablet Take 1 tablet by mouth twice daily. glucose 4 gram chewable tablet Take 4 tablets by mouth as needed for Low Blood Sugar. OXYGEN, HOME THERAPY, Inhale 3 L/min as instructed as directed. fluticasone (FLONASE) 50 mcg/actuation nasal spray Use 2 Sprays in each nostril once daily. metFORMIN ER (GLUCOPHAGE XR) 500 mg 24 hr tablet Take 2 tablets by mouth twice daily. DULoxetine (CYMBALTA) 60 mg capsule Take 1 capsule by mouth once daily. aspirin, enteric coated (ASPIRIN, ENTERIC COATED) 81 mg EC tablet Take 1 tablet by mouth every morning. BIPAP Bilevel PAP 15/11 cmH2O with 2 LPM oxygen bleed in, mask, tubing, filters, heated humidity, lifetime supplies. Please fax day compliance download to [phone]. Dx: G47.33, G47.39. DME: [facility] furosemide (LASIX) 40 mg tablet Take 1 tablet by mouth twice daily. albuterol HFA (VENTOLIN HFA) 90 mcg/actuation inhaler Inhale 2 Puffs as instructed every 4 hours as needed for Wheezing/Shortness of Breath. insulin glargine (LANTUS SOLOSTAR) 100 unit/mL (3 mL) inpn Inject 62 units subcutaneously twice daily COMPOUNDED PRESCRIPTION Evaluation for diabetic shoes and inserts Dx: E11.65, Z79.4 blood sugar diagnostic (ONETOUCH ULTRA TEST) test strip Use as directed to check blood sugar 4-5 times daily DX: E11.65 Insulin: yes DM: yes lancets (ONE TOUCH DELICA) 33 gauge misc Use as directed to check blood sugar 4-5 times daily DX: E11.65 Insulin: yes DM: yes Incontinence Pad, Liner, Disp pads 1 Device as needed (urinary incontinence). Prevail incontinence pads. Dx: urinary incontinence. Size: small insulin needles, DISPOSABLE, (BD INSULIN PEN NEEDLE UF) 31 gauge x 5/16 ndle UAD to inject insulins sucralfate (CARAFATE) 1 gram tablet TAKE 1 TABLET BY MOUTH THREE TIMES DAILY. acetaminophen (TYLENOL) 325 mg tablet Take 2 tablets by mouth every 6 hours as needed for Pain. Blood Pressure Cuff - Home Use BLOOD PRESSURE CUFF FOR HOME USE. DX: LABILE BLOOD PRESSURE Blood-Glucose Meter (ONETOUCH ULTRA2) monitoring kit UAD to test blood sugar Alcohol Swabs padm UAD to clean skin before testing blood sugar and injecting insulins. fluticasone-salmeterol (ADVAIR DISKUS) 250-50 mcg/dose dsdv Inhale 1 Puff as instructed twice daily. No current facility-administered medications on file prior to visit. 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 Social History Main Topics Smoking status: Former Smoker Packs/day: 1.00 Years: 28.00 Types: Cigarettes Start date: 1978 Quit date: 09/22/2005 Smokeless status: Never Used Comment: Father smoked in childhood. 2nd spouse smoked in home. Alcohol use: No Drug use: No Sexual activity: No Social History Narrative 1 year in current home. No basement, 1 parakeet. Room A/C. Electric baseboard heat. Review of Symptoms REVIEW OF SYSTEMS GENERAL: No weight loss, malaise or fevers RESPIRATORY: See HPI CARDIOVASCULAR: Negative for chest pain, leg swelling, hypertension, CHF or palpitations : Admits to urine with foul odor with orange tint and urinary frequency. Denies dysuria. GI: No nausea, vomiting, or diarrhea SKIN: Negative for lesions, rash, and itching EXAM: BP 120/74 Pulse 76 Resp 20 Wt 100.7 kg (222 lb) SpO2 98% BMI 40.6 kg/m2 General Appearance: Well appearing, alert, in no acute distress, well-hydrated, well nourished.. Lungs: Lungs clear to auscultation. No wheezing, rhonchi, rales. Heart: RRR without murmur, gallop, or rubs. No ectopy. Abdomen: Normal abdominal exam, Abdomen soft, non-tender. Bowel sounds normal. No masses, organomegaly. Extremities: No deformities, edema, skin discoloration, clubbing or cyanosis. Good capillary refill. . Health Maintenance List HPV EVERY 5 YEARS due on 1985 LDL due on 07/20/2017 MAMMOGRAM due on 10/17/2017 HBA1C due on 01/26/2018 DIABETIC FOOT EXAM due on 06/03/2018 URINE ALBUMIN CREATININE RATIO due on 06/19/2018 DILATED RETINAL EXAM due on 07/03/2018 COLORECTAL CANCER SCREENING,SEE MODIFIER due on 11/30/2019 PAP EVERY 5 YEARS due on 11/27/2021 TETANUS due on 10/02/2026 ONE PNEUMOVAX PRIOR TO AGE 65 Completed INFLUENZA Completed HEPATITIS C SCREENING Completed ASSESSMENT/PLAN: 1. Acute metabolic encephalopathy due to hypoglycemia - ICD9: 348.31, 251.2, ICD10: G93.41, E16.2 (primary diagnosis) Resolved. Discussed cutting lantus in half on days she has decreased appetite. Continue lower dose of insulin and will follow up in 2-3 weeks. 2. Acute bronchitis with chronic obstructive pulmonary disease (COPD) (HCC) - ICD9: 491.22, ICD10: J44.0, J20.9 Improved with z pack and prednisone. Will monitor for recurrence. 3. Type 2 diabetes mellitus with hyperglycemia, with long- term current use of insulin (HCC) - ICD9: 250.00, 790.29, V58.67, ICD10: E11.65, Z79.4 Controlled. - Continue current medications - Blood glucose monitoring on a three times a day schedule - Encouraged regular aerobic exercise and weight loss - Daily Asprin therapy recommended - INSULIN LISPRO 200 UNIT/ML (3 ML) SUBCUTANEOUS PEN - INSULIN GLARGINE 100 UNIT/ML (3 ML) SUBCUTANEOUS PEN - GLUCOSE, BLOOD (POC) 4. Abnormal urine odor - ICD9: 791.9, ICD10: R82.90 Unable to give urine in office. Will obtain later today and call with results. Advised pushing PO fluids. - URINALYSIS WITH MICROSCOPIC - URINE CULTURE 5. History of MRSA infection of lungs - ICD9: V12.04, ICD10: Z86.14 Continue bactrim. Will follow up with CXR. 6. Hospital discharge follow-up - ICD9: V67.59, ICD10: Z09 Patient doing well at home. Discussed regular meals, selecting foods she will actually eat from [employer], and follow up with gastro regarding gastroparesis. Nanda Oliveira MD CNPTOUTREACH Observed: 10/23/2017 Status: COMPLETED Source: RUSSELL 12:00 AM [facility] REPOSITORY Patient Outreach (FAMPWS) TAMIA PANDA ([id number]) 1955 F Date Time Provider Department 10/23/17 SAAD SILVESTRE (RN) FAMPWS During your visit today, we recorded the following information about you: Saad Silvestre RN 10/23/2017 5:20 PM Signed PRIMARY CARE COORDINATION IN OFFICE VISIT WITH PCP Patient has been identified by name and date of . PCP Assessment/Plan: Reviewed PCP plan with patient using Teach Back Had lengthy discussion regarding patient's diet, not eating routine meals, low blood sugars and not knowing when she is having a low BS PCC Plan of Care: Patient concerns: Concerned about her gastroparesis, the pain and bloating. Has appt with Dr. Hanna on 11/05 Patient goals: Patient will work on eating meals routinely even if it is a small meal. If she doesn't feel like eating she will cut morning Lantus dose in half PCC Interventions: PCC will call [employer] with suggestions for patient and will call about possible supplements Next Office Visit: 11/14/2017 Plan For Next Call: In person visit on 11/14 Saad Silvestre RN October 23, 2017 Allergies As of Date: 10/23/2017 Noted Allergy Reaction ADHESIVE TAPE (ROSINS) 04/04/2015 5 - Intolerance Comments: Surgical tape leaves rash Irritates skin badly and blisters along with medical tape CATS 04/10/2016 14 - Other: See Comments Comments: Congested and itchy, difficulty breathing DOGS 04/10/2016 14 - Other: See Comments Comments: Congestion, sneezing, and difficulty breathing ORPHENADRINE 04/10/2016 16 - Unknown CIPROFLOXACIN 12/11/2011 14 - Other: See Comments Comments: Red, hot, itchy rash KEFLEX (CEPHALEXIN) 07/10/2016 4 - Hives NIACIN 04/04/2015 16 - Unknown NIACIN PREPARATIONS 10/18/2004 PENICILLIN G 10/18/2004 PENICILLINS 04/04/2015 16 - Unknown REGLAN (METOCLOPRAMIDE HCL) 03/04/2017 14 - Other: See Comments Comments: Unable to sleep XANTHINES 10/18/2004 Date Reviewed: 10/23/2017 Reviewed by: Katherine Perez LPN - Fully Assessed Reason for Visit: Glove Cuffer-In Office Visit [3280] Prescriptions as of 10/23/2017 Sig: VITAMIN C 500 MG TABLET TAKE 1 TABLET BY MOUTH DAILY FERROUS GLUCONATE 324 MG (38 * TAKE 1 TABLET BY MOUTH DAILY * INSULIN LISPRO 200 UNIT/ML (3* Inject subcutaneously 16 unit* INSULIN GLARGINE 100 UNIT/ML * Inject 60 units subcutaneousl* STOOL SOFTENER 100 MG CAPSULE TAKE 1 CAPSULE BY MOUTH DAILY CLAUDIA-YKLE 8.6 MG TABLET TAKE 1 TABLET BY MOUTH TWICE * ISOSORBIDE MONONITRATE ER 60 * Take 1.5 tablets by mouth onc* SULFAMETHOXAZOLE 800 MG-TRIME* Take 1 tablet by mouth twice * ATORVASTATIN 40 MG TABLET TAKE 1 TABLET BY MOUTH DAILY DILTIAZEM SR 180 MG 24 HR CAP TAKE 1 CAPSULE BY MOUTH EVERY* LEVOTHYROXINE 100 MCG TABLET TAKE 1 TABLET BY MOUTH EVERY * OMEPRAZOLE 20 MG CAPSULE,MARIA EUGENIA* TAKE 1 CAPSULE BY MOUTH EVERY* ELIQUIS 2.5 MG TABLET TAKE 1 TABLET BY MOUTH TWICE * LYRICA 100 MG CAPSULE TAKE 1 CAPSULE BY MOUTH THREE* PROMETHAZINE 25 MG TABLET Take 1 tablet by mouth every * NITROGLYCERIN 0.4 MG SUBLINGU* DISSOLVE 1 TAB UNDER THE TONG* METOPROLOL TARTRATE 50 MG TAB* Take 1 tablet by mouth twice * GLUCOSE 4 GRAM CHEWABLE TABLET Take 4 tablets by mouth as ne* OXYGEN (HOME THERAPY) Inhale 3 L/min as instructed * FLUTICASONE 50 MCG/ACTUATION * Use 2 Sprays in each nostril * METFORMIN ER 500 MG TABLET,EX* Take 2 tablets by mouth twice* DULOXETINE 60 MG CAPSULE,MARIA EUGENIA* Take 1 capsule by mouth once * ASPIRIN 81 MG TABLET,DELAYED * Take 1 tablet by mouth every * BIPAP Bilevel PAP 15/11 cmH2O with * FUROSEMIDE 40 MG TABLET Take 1 tablet by mouth twice * ALBUTEROL SULFATE HFA 90 MCG/* Inhale 2 Puffs as instructed * COMPOUNDED PRESCRIPTION Evaluation for diabetic shoes* BLOOD SUGAR DIAGNOSTIC STRIPS Use as directed to check bloo* LANCETS 33 GAUGE Use as directed to check bloo* INCONTINENCE PAD, LINER, DISP* 1 Device as needed (urinary i* PEN NEEDLE, DIABETIC 31 GAUGE* UAD to inject insulins ACETAMINOPHEN 325 MG TABLET Take 2 tablets by mouth every* COMPOUNDED PRESCRIPTION BLOOD PRESSURE CUFF FOR HOME * BLOOD-GLUCOSE METER KIT UAD to test blood sugar ALCOHOL SWABS UAD to clean skin before test* FLUTICASONE 250 MCG-SALMETERO* Inhale 1 Puff as instructed t* Problem List As Of Date 10/23/2017 Noted Resolved SUBJECTIVE TINNITUS [H93.19] INVALID FOR* Obstructive sleep apnea [G47.33] INVALID FOR* Hyperlipidemia [E78.5] INVALID FOR* Coronary disease [I25.10] INVALID FOR* Diabetes mellitus, type II ([facility]) [E11.9] INVALID FOR* Morbid obesity ([facility]) [E66.01] Hypothyroidism [E03.9] Anxiety [F41.9] Sleep apnea [G47.30] 02/14/2017 Essential hypertension [I10] Coronary atherosclerosis of port lions coronary art* AF (paroxysmal atrial fibrillation) ([facility]) [I48.* COPD (chronic obstructive pulmonary disease) (H* GERD without esophagitis [K21.9] Dysphagia [R13.10] Constipation [K59.00] DM type 2 (diabetes mellitus, type 2) ([facility]) [E1* 02/14/2017 Shortness of breath [R06.02] 02/14/2017 Arthritis [M19.90] More... CHF (congestive heart failure) ([facility]) [I50.9] BPPV (benign paroxysmal positional vertigo) [H8*INVALID FOR* RLS (restless legs syndrome) [G25.81] INVALID FOR* Iron deficiency concern: RE RLS [E61.1] INVALID FOR* Tubular adenoma [D36.9] INVALID FOR* Incontinence [R32] More... Gastroparesis [K31.84] INVALID FOR* Encounter Status:Closed by SAAD SILVESTRE on 10/27/17 PROGRESS Observed: 10/21/2017 Status: COMPLETED Source: ROJAS 9:10 AM [facility] REPOSITORY [facility]NO ID: [id number] Author: Saad Allen) Larry Service: (none) Author Type: Registered Nurse Type: Progress Notes Filed: 10/21/2017 9:40 AM Note Text: TC to [facility] at [facility], informed pt states she is still taking Humalog. States she will need an updated prescription with refills. Informed pt is seeing PCP on , will send script then. Saad Silvestre RN TC to patient, states she took her last azithromycin this morning. Explained pt has MRSA in her mucous and she needs a different ATB so PCP called in Bactrim which she is to take twice a day for 10 days. Instructed to start Bactrim tonight, verbalized understanding with teach back. Also discussed pt's insulins, pt read off name on both of her insulin pens and she has Lantus and Humalog. Pt looked in refrigerator and she still has two boxes of Humalog left. States the only time she misses a dose of Humalog is when her BS is too low so she doesn't take it. Informed [facility] states they haven't filled it since May. States she has had enough insulin to last all this time. Reviewed with pt she is to call [facility] when she needs insulin, they don't automatically send it. Pt states she knows that and she does call them when she is low on supply. Saad Silvestre RN October 21, 2017 9:31 AM TC to [facility], they will deliver Bactrim today. Asked about Humalog insulin because it is not on pt's medication list they faxed. Reviewed past prescriptions and [facility] Bridge Instructor states patient has not gotten Humalog insulin since 06/05/17 and that was only a 30 day supply. States they do not refill insulin monthly unless they are asked. Saad Silvestre RN October 21, 2017 9:12 AM PROGRESS Observed: 10/20/2017 Status: COMPLETED Source: RUSSELL 4:17 PM [facility] REPOSITORY [facility] ID: [id number] Author: Nanda Rodriguez) Brian Service: (none) Author Type: Physician Type: Progress Notes Filed: 10/21/2017 9:40 AM Note Text: Sugars no longer low. Has sputum culture showing positive for MRSA. Will have patient stop Z pack and start bactrim instead due to sensitivities. Will obtain Xray in 10 days as well. PROGRESS Observed: 10/20/2017 Status: COMPLETED Source: RUSSELL 2:43 PM [facility] REPOSITORY O ID: [id number] Author: Saad (Rn) Larry Service: (none) Author Type: Registered Nurse Type: Progress Notes Filed: 10/20/2017 3:23 PM Note Text: TRANSITION CARE MANAGEMENT (TCM) INITIAL CONTACT Provider Action/FYI: PLEASE NOTE BS, PT ON 2 MORE DAYS OF PREDNISONE Occasional nonproductive cough Chest tightness not helped by rescue inhaler this morning. Instructed to use rescue inhaler again, verbalized agreement SOB with any exertion. Pt SOB during phone call. No chest pain but notes some chest heaviness Initial contact with patient post discharge, spoke to patient. Patient identified by name and . SUMMARY: -Pt discharged from [facility] on 10/17. -Follow up appointment on 10/23 with PCP. -Medication review done with [facility]. -Admitted for: Acute Metabolic Encephalopathy due to Hypoglycemia (Acute) Acute Hypoglycemia COPD with Moderate Acute Bronchitis CONCERNS: Reports occasional nonproductive cough Chest tightness not helped by rescue inhaler this morning. Instructed to use rescue inhaler again, verbalized agreement SOB with any exertion. Pt SOB during phone call. No chest pain but notes some chest heaviness Tamia Panda is a 62 year old female who reports glucose readings as noted. DATE 10/20 10/19 10/18 10/17 Fasting 240 185 321 Before Meal 170 Before Meal 229 447 Bedtime 433 Any low blood sugars during this period of reporting No Patient's diabetes medications as follows: Lantus 60 units BID Humalog 16 units with breakfast, 22 units with lunch and 28 units with supper metFORMIN ER (GLUCOPHAGE XR) 500 mg 2 tablets by mouth twice daily. insulin lispro (HUMALOG KWIKPEN) 200 unit/mL Inject subcutaneously 16 units with breakfast, 22 units with lunch, and 24 units with dinner PT HAS BEEN TAKING 16 UNITS, 22 UNITS AND 28 UNITS NEW MEDICATIONS: Azithromycin 500 mg Daily Will finish medication course tomorrow Prednisone 40 mg Daily Will finish on Friday MEDS CHANGED: Lantus 60 units twice daily (Decreased from 62 units BID) Humalog 16 units with breakfast, 22 units with lunch and 24 units with supper (Decreased from Inject subcutaneously 18 units with breakfast, 24 units with lunch, and 28 units with dinner) MEDS HELD/DISCONTINUED: None BRIEF HOSPITAL COURSE: Admitted from ED with slurred speech and hypoglycemia. Squad called and EMS found BS 62. Oral mucosa glucose given and BS dropped to 47. Pt also was mildly SOB and has had cough x 3-4 weeks. Family thinks pt is not taking her insulin correctly and is stacking insulin doses. Discharged on reduced dose of insulin and advised to monitor BS very closely. COPD exacerbation managed on breathing treatments and IV steroids. Discharged on po steroids and azithromycin. Saad Silvestre RN October 20, 2017 3:12 PM CNPTOUTREACH Observed: 10/20/2017 Status: COMPLETED Source: RUSSELL 12:00 AM [facility] REPOSITORY Patient Outreach (FAMPWS) TAMIA PANDA ([id number]) 1955 F Date Time Provider Department 10/20/17 SAAD SILVESTRE (RN) FAMPWS During your visit today, we recorded the following information about you: Saad Silvestre RN 10/20/2017 3:23 PM Signed TRANSITION CARE MANAGEMENT (TCM) INITIAL CONTACT Provider Action/FYI: PLEASE NOTE BS, PT ON 2 MORE DAYS OF PREDNISONE Occasional nonproductive cough Chest tightness not helped by rescue inhaler this morning. Instructed to use rescue inhaler again, verbalized agreement SOB with any exertion. Pt SOB during phone call. No chest pain but notes some ANDquot;chest heavinessANDquot; Initial contact with patient post discharge, spoke to patient. Patient identified by name and . SUMMARY: -Pt discharged from [facility] on 10/17. -Follow up appointment on 10/23 with PCP. -Medication review done with Miryam. -Admitted for: Acute Metabolic Encephalopathy due to Hypoglycemia (Acute) Acute Hypoglycemia COPD with Moderate Acute Bronchitis CONCERNS: Reports occasional nonproductive cough Chest tightness not helped by rescue inhaler this morning. Instructed to use rescue inhaler again, verbalized agreement SOB with any exertion. Pt SOB during phone call. No chest pain but notes some ANDquot;chest heavinessANDquot; Tamia Jennifer Panda is a 62 year old female who reports glucose readings as noted. DATE 10/20 10/19 10/18 10/17 Fasting 240 185 321 Before Meal 170 Before Meal 229 447 Bedtime 433 Any low blood sugars during this period of reporting No Patient's diabetes medications as follows: Lantus 60 units BID Humalog 16 units with breakfast, 22 units with lunch and 28 units with supper metFORMIN ER (GLUCOPHAGE XR) 500 mg 2 tablets by mouth twice daily. insulin lispro (HUMALOG KWIKPEN) 200 unit/mL Inject subcutaneously 16 units with breakfast, 22 units with lunch, and 24 units with dinner PT HAS BEEN TAKING 16 UNITS, 22 UNITS AND 28 UNITS NEW MEDICATIONS: Azithromycin 500 mg Daily Will finish medication course tomorrow Prednisone 40 mg Daily Will finish on Friday MEDS CHANGED: Lantus 60 units twice daily (Decreased from 62 units BID) Humalog 16 units with breakfast, 22 units with lunch and 24 units with supper (Decreased from Inject subcutaneously 18 units with breakfast, 24 units with lunch, and 28 units with dinner) MEDS HELD/DISCONTINUED: None BRIEF HOSPITAL COURSE: Admitted from ED with slurred speech and hypoglycemia. Squad called and EMS found BS 62. Oral mucosa glucose given and BS dropped to 47. Pt also was mildly SOB and has had cough x 3-4 weeks. Family thinks pt is not taking her insulin correctly and is stacking insulin doses. Discharged on reduced dose of insulin and advised to monitor BS very closely. COPD exacerbation managed on breathing treatments and IV steroids. Discharged on po steroids and azithromycin. Saad Silvestre RN October 20, 2017 3:12 PM Nanda Oliveira MD 10/21/2017 9:40 AM Signed Sugars no longer low. Has sputum culture showing positive for MRSA. Will have patient stop Z pack and start bactrim instead due to sensitivities. Will obtain Xray in 10 days as well. Saad Silvestre RN 10/21/2017 9:40 AM Signed TC to [facility], informed pt states she is still taking Humalog. States she will need an updated prescription with refills. Informed pt is seeing PCP on , will send script then. Saad Silvestre RN TC to patient, states she took her last azithromycin this morning. Explained pt has MRSA in her mucous and she needs a different ATB so PCP called in Bactrim which she is to take twice a day for 10 days. Instructed to start Bactrim tonight, verbalized understanding with teach back. Also discussed pt's insulins, pt read off name on both of her insulin pens and she has Lantus and Humalog. Pt looked in refrigerator and she still has two boxes of Humalog left. States the only time she misses a dose of Humalog is when her BS is too low so she doesn't take it. Informed [facility] states they haven't filled it since May. States she has had enough insulin to last all this time. Reviewed with pt she is to call [facility] when she needs insulin, they don't automatically send it. Pt states she knows that and she does call them when she is low on supply. Saad Silvestre RN October 21, 2017 9:31 AM TC to [facility], they will deliver Bactrim today. Asked about Humalog insulin because it is not on pt's medication list they faxed. Reviewed past prescriptions and Delaney Giron states patient has not gotten Humalog insulin since 06/05/17 and that was only a 30 day supply. States they do not refill insulin monthly unless they are asked. Saad Silvestre RN October 21, 2017 9:12 AM Allergies As of Date: 10/20/2017 Noted Allergy Reaction ADHESIVE TAPE (ROSINS) 04/04/2015 5 - Intolerance Comments: Surgical tape leaves rash Irritates skin badly and blisters along with medical tape CATS 04/10/2016 14 - Other: See Comments Comments: Congested and itchy, difficulty breathing DOGS 04/10/2016 14 - Other: See Comments Comments: Congestion, sneezing, and difficulty breathing ORPHENADRINE 04/10/2016 16 - Unknown CIPROFLOXACIN 12/11/2011 14 - Other: See Comments Comments: Red, hot, itchy rash KEFLEX (CEPHALEXIN) 07/10/2016 4 - Hives NIACIN 04/04/2015 16 - Unknown NIACIN PREPARATIONS 10/18/2004 PENICILLIN G 10/18/2004 PENICILLINS 04/04/2015 16 - Unknown REGLAN (METOCLOPRAMIDE HCL) 03/04/2017 14 - Other: See Comments Comments: Unable to sleep XANTHINES 10/18/2004 Date Reviewed: 10/14/2017 Reviewed by: Deysi Sepulveda Ma - Fully Assessed Reason for Visit: Glove Cuffer Hospital Follow Up [3610] Primary Visit Diagnosis:MRSA (methicillin resistant staph aureus) culture positive [Z22.322] Other Visit Diagnosis:Coronary artery disease with unstable angina pectoris, unspecified vessel or lesion type, unspecified whether port lions or transplanted heart (HCC) [I25.110] Order(s):isosorbide mononitrate ER (IMDUR) 60 mg 24 hr tabletTake 1.5 tablets by mouth once daily. In the morningDisp: 30 tabletRfl: 11 sulfamethoxazole-trimethoprim (BACTRIM DS) 800-160 mg per tabletTake 1 tablet by mouth twice daily for 10 days.Disp: 20 tabletRfl: 0 XR CHEST 2V FRONTAL/LAT [[id number]] Order #: [id number] FUTURE Prescriptions as of 10/20/2017 Sig: ISOSORBIDE MONONITRATE ER 60 * Take 1.5 tablets by mouth onc* SULFAMETHOXAZOLE 800 MG-TRIME* Take 1 tablet by mouth twice * ATORVASTATIN 40 MG TABLET TAKE 1 TABLET BY MOUTH DAILY DILTIAZEM SR 180 MG 24 HR CAP TAKE 1 CAPSULE BY MOUTH EVERY* LEVOTHYROXINE 100 MCG TABLET TAKE 1 TABLET BY MOUTH EVERY * OMEPRAZOLE 20 MG CAPSULE,MARIA EUGENIA* TAKE 1 CAPSULE BY MOUTH EVERY* ELIQUIS 2.5 MG TABLET TAKE 1 TABLET BY MOUTH TWICE * LYRICA 100 MG CAPSULE TAKE 1 CAPSULE BY MOUTH THREE* PROMETHAZINE 25 MG TABLET Take 1 tablet by mouth every * SENNA 8.6 MG TABLET TAKE 1 TABLET BY MOUTH TWICE * STOOL SOFTENER 100 MG CAPSULE TAKE 1 CAPSULE BY MOUTH DAILY INSULIN LISPRO 200 UNIT/ML (3* Inject subcutaneously 18 unit* NITROGLYCERIN 0.4 MG SUBLINGU* DISSOLVE 1 TAB UNDER THE TONG* METOPROLOL TARTRATE 50 MG TAB* Take 1 tablet by mouth twice * GLUCOSE 4 GRAM CHEWABLE TABLET Take 4 tablets by mouth as ne* OXYGEN (HOME THERAPY) Inhale 3 L/min as instructed * FLUTICASONE 50 MCG/ACTUATION * Use 2 Sprays in each nostril * METFORMIN ER 500 MG TABLET,EX* Take 2 tablets by mouth twice* DULOXETINE 60 MG CAPSULE,MARIA EUGENIA* Take 1 capsule by mouth once * ASPIRIN 81 MG TABLET,DELAYED * Take 1 tablet by mouth every * BIPAP Bilevel PAP 15/11 cmH2O with * FUROSEMIDE 40 MG TABLET Take 1 tablet by mouth twice * ALBUTEROL SULFATE HFA 90 MCG/* Inhale 2 Puffs as instructed * INSULIN GLARGINE 100 UNIT/ML * Inject 62 units subcutaneousl* COMPOUNDED PRESCRIPTION Evaluation for diabetic shoes* FERROUS GLUCONATE 324 MG (38 * Take 1 tablet by mouth daily * ASCORBIC ACID (VITAMIN C) 500* Take 1 tablet by mouth once d* BLOOD SUGAR DIAGNOSTIC STRIPS Use as directed to check bloo* LANCETS 33 GAUGE Use as directed to check bloo* INCONTINENCE PAD, LINER, DISP* 1 Device as needed (urinary i* PEN NEEDLE, DIABETIC 31 GAUGE* UAD to inject insulins ACETAMINOPHEN 325 MG TABLET Take 2 tablets by mouth every* COMPOUNDED PRESCRIPTION BLOOD PRESSURE CUFF FOR HOME * BLOOD-GLUCOSE METER KIT UAD to test blood sugar ALCOHOL SWABS UAD to clean skin before test* SUCRALFATE 1 GRAM TABLET TAKE 1 TABLET BY MOUTH THREE * FLUTICASONE 250 MCG-SALMETERO* Inhale 1 Puff as instructed t* Problem List As Of Date 10/20/2017 Noted Resolved SUBJECTIVE TINNITUS [H93.19] INVALID FOR* Obstructive sleep apnea [G47.33] INVALID FOR* Hyperlipidemia [E78.5] INVALID FOR* Coronary disease [I25.10] INVALID FOR* Diabetes mellitus, type II ([facility]) [E11.9] INVALID FOR* Morbid obesity ([facility]) [E66.01] Hypothyroidism [E03.9] Anxiety [F41.9] Sleep apnea [G47.30] 02/14/2017 Essential hypertension [I10] Coronary atherosclerosis of port lions coronary art* AF (paroxysmal atrial fibrillation) ([facility]) [I48.* COPD (chronic obstructive pulmonary disease) (H* GERD without esophagitis [K21.9] Dysphagia [R13.10] Constipation [K59.00] DM type 2 (diabetes mellitus, type 2) ([facility]) [E1* 02/14/2017 Shortness of breath [R06.02] 02/14/2017 Arthritis [M19.90] More... CHF (congestive heart failure) ([facility]) [I50.9] BPPV (benign paroxysmal positional vertigo) [H8*INVALID FOR* RLS (restless legs syndrome) [G25.81] INVALID FOR* Iron deficiency concern: RE RLS [E61.1] INVALID FOR* Tubular adenoma [D36.9] INVALID FOR* Incontinence [R32] More... Gastroparesis [K31.84] INVALID FOR* Prescriptions ordered this encounter Disp Refills Start End ISOSORBIDE MONONITRATE ER 60 MG TABL* 30 t* 11 10/20/2017 Class: Med Update Route: ORAL Sig: Take 1.5 tablets by mouth once daily. In the morning SULFAMETHOXAZOLE 800 MG-TRIMETHOPRIM* 20 t* 0 10/20/2017 10/30/2017 Cmt: Ok to give generic equivalent Route: ORAL Sig: Take 1 tablet by mouth twice daily for 10 days. Medications Discontinued During This Encounter isosorbide mononitrate ER (IMDUR) 60* 30 t* 11 10/10/2016 10/20/2017 Route: ORAL Sig: Take 1 tablet by mouth once daily. In the morning Disc: Reason for discontinue is not on file. levoFLOXacin (LEVAQUIN) 750 mg tablet 7 ta* 0 10/14/2017 10/20/2017 Route: ORAL Sig: Take 1 tablet by mouth once daily for 7 days. Disc: Reason for discontinue is not on file. Encounter Status:Closed by SAAD SILVESTRE on 10/21/17 DISCHARGE SUMMARY Observed: 10/19/2017 Status: F Source: MEARS 11:37 [facility] REPOSITORY [facility] Medical Records Department [address] [place] [id number] Discharge Summary 10/17/17 1017 MR#: [id number] Acct: [id number] Name: TAMIA PANDA Rep #: [id number] : 1955 62 From: Shirley Fabian MD PCP: Bhupendra Oliveira MD Status: DIS NICOLE Y Location: [facility] [id number] Discharge Date and Diagnosis Date of Admission: 10/16/17 Date of Discharge: 10/17/17 - Primary Discharge Diagnosis Active and Suspected Problems Acute metabolic encephalopathy due to hypoglycemia (Acute) Acute hypoglycemia (Acute) COPD with moderate acute bronchitis (Acute) - Secondary Discharge Diagnosis Chronic Problems Diabetes mellitus type 2 in obese (Chronic) Coronary arteriosclerosis (Chronic) cath 05/2015 mild-moderate disease medical therapy recommended Hypothyroidism (Chronic) Hyperlipemia (Chronic) GERD (gastroesophageal reflux disease) (Chronic) Hypertension (Chronic) COPD (chronic obstructive pulmonary disease) (Chronic) Chronic respiratory insufficiency (Chronic) On home oxygen at night S/P PTCA (percutaneous transluminal coronary angioplasty) (Chronic) PARESH (obstructive sleep apnea) (Chronic) Hospital Course and Treatment Imaging Results: Clinical Impression(s) from Imaging Studies Brain CT 10/16/17 16:21 IMPRESSION: Chronic involutional changes of the brain. Sinus disease. It appears that there is a stent in the right nasal cavity, clinical correlation recommended. It was present previously dating at least back to August 27, 2016. Electronically Signed: Tejal Ardon MD at 17:10 EST Tel , Service support , Chest X-Ray 10/16/17 21:15 IMPRESSION: Cardiomegaly and mild pulmonary venous congestion. Electronically Signed: Rudolph Fonseca MD at 0:15 EST Tel , Service support , None Operations: None Procedures: None Summary of Care Provided: 62 year old F with multiple comorbidities including COPD, diabetes mellitus type 2, coronary artery status post stent in 2003, and other comorbidities admitted to the ED with slurred speech and hypoglycemia. This slurred speech was found by the home health nurse and she called 911. EMS found her blood sugar 62. Oral mucosa given blood sugar dropped to 47. Patient is also mild short of breath and having cough for last 3-4 weeks. Active management was as follows: 1. Acute metabolic encephalopathy due to hypoglycemia, resolved, 2. Acute on recurrent hypoglycemia due to diabetes mellitus type 2, family thinks she is not taking her insulin in the right away and stacking of insulin, she was discharged on a reduced dose of insulin advised to monitor her blood sugars very closely 3. 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 4. Acute COPD exacerbation, mild, managed on breathing treatments and IV steroids and discharged on po steroids and azithromycin. Sputum cultures were pending at the time of discharge. 5. Coronary artery disease status post Cardiac cath in May 2015 mild-moderate disease medical therapy recommended, on aspirin, statin: Continue home medications 6. Paroxysmal A. fib, rate controlled, on apixaban 2.5 mg twice daily Discharge Diet: Low fat/ Low Cholesterol, 2000 Calorie Control Diet, 2000 mg Sodium Diet Discharge Activity: Return to Normal Activity Home Medications: Medications to take at Discharge RX: Duloxetine Hcl [Cymbalta] 60 mg PO DAILY 06/19/15 RX: Levothyroxine [Synthroid] 100 mcg PO DAILY 06/19/15 RX: Metoprolol Tartrate [Lopressor (beta sudhakar)] 50 mg PO BID tablet 04/02/16 RX: Docusate Sodium [Col-Rite] 100 mg PO DAILY 08/27/16 RX: Metformin HCl [Glucophage] 1,000 mg PO BIDCM 08/27/16 RX: Nitroglycerin [Nitrostat] 0.4 mg SUBLINGUAL Q5M PRN 08/27/16 RX: Omeprazole [Prilosec] 20 mg PO DAILY 08/27/16 RX: Diltiazem CD [Cardizem CD] 180 mg PO DAILY #30 capsule 08/29/16 RX: Aspirin [Aspirin, Baby] 81 mg PO DAILY@0800 09/02/16 RX: Atorvastatin Calcium [Lipitor] 40 mg PO QHS 09/02/16 RX: Furosemide [Lasix] 40 mg PO BID 09/02/16 RX: Ferrous Gluconate 1 tab PO DAILY 01/01/17 RX: Isosorbide Mononitrate [Isosorbide Mononitrate ER] 60 tab PO DAILY 01/01/17 RX: Senna [Senokot] 1 tablet PO BID 01/01/17 RX: Apixaban [Eliquis] 2.5 mg PO BID 05/12/17 RX: Ascorbic Acid [Vitamin C] 500 mg PO DAILY@0800 05/12/17 RX: Pregabalin [Lyrica] 100 mg PO TID 05/12/17 RX: Albuterol Inhaler [Ventolin Hfa] 2 puff INHALATION Q4H PRN PRN 10/16/17 RX: ProMETHAzine [Phenergan] 25 mg PO Q6H PRN PRN 10/16/17 RX: Sucralfate 1 gm PO TID 10/16/17 RX: Azithromycin 500 mg PO DAILY #4 tab 10/17/17 RX: Insulin Glargine [Lantus SoloStar Pen] 60 unit SQ BID #0 10/17/17 RX: Insulin Lispro [Humalog KwikPen] 16 unit SQ BREAKFAST #0 10/17/17 RX: Insulin Lispro [Humalog Kwikpen U-200] 22 unit SQ LUNCH #0 10/17/17 RX: Insulin Lispro [Humalog Kwikpen U-200] 24 unit SQ DINNER #0 10/17/17 RX: Prednisone [Deltasone] 40 mg PO DAILY #5 tab 10/17/17 Following Prescrptions Were Given to Patient: RX: Azithromycin 500 mg PO DAILY #4 tab RX: Prednisone [Deltasone] 40 mg PO DAILY #5 tab Primary Care Physician: Bhupendra Oliveira MD [Primary Care Provider] - Please follow up with your Primary Care Physician in: within 2 weeks Disposition: Home Minutes spent on discharge:: 25 Patient Condition:: Stable Meaningful Use Info Meaningful Use Diagnoses (Choose all that apply): None applicable Code Visit Inpatient E AND M: 64800 Disch Hosp 10/19/17 1137 <Electronically signed by Shirley Fabian MD> Date Shirley Fabian MD Cosigner Signature (if applicable): Date CC: Bhupendra Oliveira MD; Shirley Fabian MD Signed BEDSIDE GLUCOSE Collected: 10/17/2017 Status: F Source: MEARS 12:24 PM [facility] REPOSITORY TYPE CODE TESTS RESULT OUT OF REFERENCE UNITS RANGE LAB L501.080 70-110 mg/dL High BEDSIDE GLU 401 Result Comment: MANAGEMENT OF PATIENT CARE PER NURSING PROTOCOL Performed By: #### L501.080 #### [facility] Point of Care [address] [place] [address] DISCHARGE INSTRUCTION Observed: 10/17/2017 Status: F Source: MEARS 10:17 AM [facility] REPOSITORY [facility] Medical Records Department [address] [place] [address] Instructions for Home/Discharge Instructions 10/17/17 1011 MR#: [id number] Acct: [id number] Name: TAMIA PANDA Rep #: [id number] : 1955 62 From: Shirley Fabian MD PCP: Bhupendra Oliveira MD Status: ADM NICOLE - Discharge Diagnoses Current Active Problems: Current Active and Chronic Problems Acute metabolic encephalopathy due to hypoglycemia (Acute) Acute hypoglycemia (Acute) COPD with moderate acute bronchitis (Acute) Reason(s) for Visit for Discharge Instructions: Slurred speech, hypoglycemia You will use the following diet at home:: Calorie/Carbohydrate Controlled (specify 1200, 1400, etc), Cardiac Your food should be the consistency of: Regular Your liquids should be the consistency of: Regular/Thin Discharge Activity: Return to Normal Activity Additional Instructions: Please note changes to your insulin. Keep a strict log of your blood sugars and stick to the prescribed times for insulin administration to prevent stacking up on insulin levels in your body. Continue to use your breathing treatments for SOB Allergies/Adverse Reactions: Allergies ciprofloxacin [From Cipro] Allergy (Verified 10/16/17 15:13) Hives ciprofloxacin HCl [From Cipro] Allergy (Verified 10/16/17 15:13) Hives latex Allergy (Verified 10/16/17 15:13) matos me niacin [From Niaspan Extended-Release] Allergy (Verified 10/16/17 15:13) Hives Penicillins Allergy (Verified 10/16/17 15:13) Itching/redness orphenadrine citrate [From Norgesic] Adverse Reaction (Verified 10/16/17 15:13) groggy medical tape Adverse Reaction (Uncoded 10/16/17 15:13) blisters Medications to take at Discharge Duloxetine Hcl [Cymbalta] 60 mg PO DAILY 06/19/15 Levothyroxine [Synthroid] 100 mcg PO DAILY 06/19/15 Metoprolol Tartrate [Lopressor (beta sudhakar)] 50 mg PO BID tablet 04/02/16 Docusate Sodium [Col-Rite] 100 mg PO DAILY 08/27/16 Metformin HCl [Glucophage] 1,000 mg PO BIDCM 08/27/16 Nitroglycerin [Nitrostat] 0.4 mg SUBLINGUAL Q5M PRN 08/27/16 Omeprazole [Prilosec] 20 mg PO DAILY 08/27/16 Diltiazem CD [Cardizem CD] 180 mg PO DAILY #30 capsule 08/29/16 Aspirin [Aspirin, Baby] 81 mg PO DAILY@0800 09/02/16 Atorvastatin Calcium [Lipitor] 40 mg PO QHS 09/02/16 Furosemide [Lasix] 40 mg PO BID 09/02/16 Ferrous Gluconate 1 tab PO DAILY 01/01/17 Isosorbide Mononitrate [Isosorbide Mononitrate ER] 60 tab PO DAILY 01/01/17 Senna [Senokot] 1 tablet PO BID 01/01/17 Apixaban [Eliquis] 2.5 mg PO BID 05/12/17 Ascorbic Acid [Vitamin C] 500 mg PO DAILY@0800 05/12/17 Pregabalin [Lyrica] 100 mg PO TID 05/12/17 Albuterol Inhaler [Ventolin Hfa] 2 puff INHALATION Q4H PRN PRN 10/16/17 Fluticasone/Salmeterol [Advair 250-50 Diskus] 1 each IH BID 10/16/17 ProMETHAzine [Phenergan] 25 mg PO Q6H PRN PRN 10/16/17 Sucralfate 1 gm PO TID 10/16/17 Azithromycin 500 mg PO DAILY #4 tab 10/17/17 Insulin Glargine [Lantus SoloStar Pen] 60 unit SQ BID #0 10/17/17 Insulin Lispro [Humalog KwikPen] 16 unit SQ BREAKFAST #0 10/17/17 Insulin Lispro [Humalog Kwikpen U-200] 22 unit SQ LUNCH #0 10/17/17 Insulin Lispro [Humalog Kwikpen U-200] 24 unit SQ DINNER #0 10/17/17 Prednisone [Deltasone] 40 mg PO DAILY #5 tab 10/17/17 The following prescriptions were given: Azithromycin 500 mg PO DAILY #4 tab Prednisone [Deltasone] 40 mg PO DAILY #5 tab Orders to be completed after discharge: Basic Metabolic Profile (BMP) Time Frame: 1 Week, Location: Laboratory Primary Care Physician: Bhupendra Oliveira MD [Primary Care Provider] - Please follow up with your Primary Care Physician in: within 2 weeks Proposed Discharge Date: 10/17/17 10/17/17 1017 <Electronically signed by Onekama Paintsil MD> Date Shirley Fabian MD CC: Bhupendra Oliveira MD BASIC METABOLIC Collected: 10/17/2017 Status: F Source: MEARS PROFILE ([facility]) 9:45 AM [facility] REPOSITORY TYPE CODE TESTS RESULT OUT OF RANGE REFERENCE UNITS LAB L501.0100 70-110 mg/dL High GLU 328 Result Comment: Glucose result greater than or equal to 200 mg/dL suggests DIABETES MELLITUS per A.D.A. criteria. LAB L501.1000 7-18 mg/dL Normal BUN 11 LAB L501.1100 0.55-1.02 mg/dL Normal CREAT,SERUM 0.76 Result Comment: The validity of the calculated GFR AND GFRAA in patients over 70 years has not been determined. Clinical correlation is essential. LAB L501.1110 >60 mL/min Normal EST GFR 82 Result Comment: Non- GFR Calc LAB L501.1115 >60 mL/min Normal EST GFR - AA 99 Result Comment: GFR Calc LAB L501.1255 ml/min Normal Estimated CRCL 60.70 LAB L501.1300 10-20 RATIO Normal BUN/CRE 14.5 LAB L501.2200 8.5-10 mg/dL Low .1 CA 8.1 LAB L501.5300 136-14 mmol/L Normal 5 NA 141 LAB L501.5600 3.5-5. mmol/L Normal 1 K 3.9 LAB L501.5900 98-107 mmol/L Normal CL 101 LAB L501.6100 21.0-3 mmol/L Normal 2.0 CO2 30.0 LAB L501.6200 5-15 Normal GAP 10 Performed By: #### L500.2500 #### [facility] [address] [place], [address] CBC W/DIFF, AUTOMATED Collected: 10/17/2017 Status: F Source: [place] 7:10 AM [facility] REPOSITORY TYPE CODE TESTS RESULT OUT OF RANGE REFERENCE UNITS LAB L100.1000 4.4-11.0 K/mm3 Normal WBC 7.4 LAB L100.1200 4.2-5.4 M/mm3 Normal RBC 4.43 LAB L100.1300 12.0-15.0 g/dl Normal HGB 13.5 LAB L100.1400 37-47 % Normal HCT 43.1 LAB L100.1500 81-99 fL Normal MCV 97.3 LAB L100.1600 27.0-32.0 pg Normal MCH 30.5 LAB L100.1700 32-36 g/gl Low MCHC 31.3 LAB L100.1810 11.6-14.6 % High RDW CV 14.9 LAB L100.1820 35.1-43.9 fl High RDW SD 51.2 LAB L100.1900 150-450 K/mm3 Normal PLT 239 LAB L100.2000 6.2-12.0 fl Normal MPV 11.2 LAB L100.2100 47-70 % High NEUT% 88.9 LAB L100.2200 19-41 % Low LY% 7.9 LAB L100.2300 0-10 % Normal MONO% 1.6 LAB L100.2400 0-5 % Normal EO% 0.1 LAB L100.2500 0-1 % Normal BASO% 0.3 LAB L100.2550 0.0-0.9 % High IM GRAN % 1.200 Result Comment: IG% - Immature Granulocytes (promyelocytes, myelocytes and metamyelocytes) > 1% indicates that a LEFT SHIFT is Present. LAB L100.2620 2.0-7.7 X10 3/uL Normal Absolute Neut 6.6 LAB L100.2720 0.83-4.51 X10 3/ul Low Absolute Lymph 0.59 Performed By: #### L100.0100 #### [facility] [address] [place], [place], [id number] BEDSIDE GLUCOSE Collected: 10/17/2017 Status: F Source: ME[place] 5:14 AM [facility] REPOSITORY TYPE CODE TESTS RESULT OUT OF REFERENCE UNITS RANGE LAB L501.080 70-110 mg/dL High BEDSIDE GLU 206 Result Comment: Dr Yousif Followed MANAGEMENT OF PATIENT CARE PER NURSING PROTOCOL Performed By: #### L501.080 #### [facility] Point of Care [address] [place] [address] EMERGENCY DEPARTMENT Observed: 10/17/2017 Status: F Source: MEARS SUMMARY 12:07 AM [facility] REPOSITORY [facility] Medical Records Department [address] [place] [address] Emergency Department Summary 10/16/17 1505 MR#: [id number] Acct: [id number] Name: TAMIA PANDA Rep #: [id number] : 1955 62 From: Bao Miles DO PCP: Bhupendra Oliveira MD Status: ADM NICOLE - ER Visit Summary Date of Service: 10/16/17 Chief Complaint: Altered mental status History of Present Illness: The patient is a 62 F who was seen by her home health nurse this morning. When the nurse called her back this afternoon she had slurred speech. The nurse then called 911. EMS arrived and the found the patient in a chair alert and talking to them. Blood sugar was 62. They gave oral glucose and her sugar actually dropped to 47. Patient is having a difficult time telling me anything that is going on. She states that a week and a half ago she lost her voice. Physical Examination: Afebrile vital signs are stable Gen: Well-nourished well-developed morbidly obese Head: Normocephalic atraumatic Eyes: Perrl EOMI ENT: TMs clear no rhinorrhea moist mucous membranes Neck: Supple no lymphadenopathy no JVD nontender CVS: Regular rate rhythm no murmurs normal S1-S2 Respiratory: No distress clear to auscultation bilaterally chest nontender Abdomen: Soft nontender nondistended normal bowel sounds no masses Back: Nontender Extremity: Nontender no edema Skin: Normal color no rash Neuro: alert disorientated. Patient responds to voice. Patient quickly falls asleep. She has slurred speech. She moves all 4 extremities. Test Results: [] Emergency Department Course and Treatment: IV was established by nursing and she was given D50. Impression: 1. Diabetic hypoglycemia This note was generated with Cure[employer] dictation software. It may contain incorrect words, spelling, and punctuation that were not noted in review of the chart prior to signing ED Disposition - Plan for ED Patient: Chief Complaint: Alt LOC Referrals: Bhupendra Oliveira MD [Primary Care Provider] - What to do if you have Problems For any increased pain, shortness of breath, bleeding, nausea or vomiting, chest pain, or any unexpected problems, contact your Primary Care Provider. Call [facility] ([phone]) or report to the closest Emergency Room. Call 911 if necessary. 10/17/17 0007 <Electronically signed by Bao Miles DO> Date Bao Miles DO Cosigner Signature (If Indicated): Date CC: Bhupendra Oliveira MD Observed: 10/16/2017 Status: F Source: MEARS CULTURE, SPUTUM 10:54 PM [facility] REPOSITORY Gram Stain Acceptable Specimen? Yes (<25 Epithelial cells per/lpf) Gram Stain 2+ White Blood Cells 1+ Epithelial cells 1+ Gram positive cocci Resp. Culture Copy of report sent to Infection Control Printer [id number] 10/19/17 0851 DCANNON. RESULTS CALLED TO LANDY/ 10/20/17 1049 Sofy Malin. ORGANISM 1: Meth. resistant Staph. aureus Amount Growth Rare ORGANISM 2: Mixed Mario Amount Growth 1+ Meth. resistant Staph. aureus: REACTION Benzylpenicillin NF >=0.5 R Cefoxitin *NF + Clindamycin $$ >=8 R Inducable Clindamycin Resistan - Erythromycin $ >=8 R Gentamicin $ <=0.5 S Levofloxacin $ 4 I Linezolid $$$$ 1 S Oxacillin NF >=4 R Tigecycline $$$$ <=0.12 S Rifampin $$ <=0.5 S Tetracycline NF <=1 S Trimethoprim/Sulfametho $ <=10 S Vancomycin $ <=0.5 S (NF) indicates non-formulary drug at [facility]. Approval by Infectious Disease Specialist required before non-formulary drugs may be ordered and/or dispensed. * CLSI guidelines does not recommend testing of cephalosporins. This interpretation is deduced from Beta-lactam/penicillin results. Performed By: #### M100.0800 #### [facility] [address] [place], [address] Observed: 10/16/2017 Status: F Source: MEARS INFLUENZA A+B (RAPID 10:25 PM [facility] ISSA) REPOSITORY FLU A/B Rapid Negative test results should be confirmed by culture. Order Rapid Viral Culture for Influenzae A+B ([id number]) if clinically indicated. Influenza Ag, Direct Presumptive NEGATIVE for Influenza A/B Antigen (See Note) Performed By: #### M101.0101 #### [facility] [address] [facility] [place], [address] HISTORY AND PHYSICAL Observed: 10/16/2017 Status: F Source: MEARS EXAM 8:56 PM [facility] REPOSITORY [facility] Medical Records Department [address] [place] [address] History and Physical 10/16/172032 MR#: [id number] Acct: [id number] Name: TAMIA PANDA Rep #: [id number] : 1955 62 From: Joseph Wright MD PCP: Bhupendra Oliveira MD Status: ADM NICOLE Y Location: [place] [address] Problem List (1) Acute metabolic encephalopathy due to hypoglycemia Status: Acute (2) Acute hypoglycemia Status: Acute (3) Diabetes mellitus type 2 in obese Status: Chronic (4) Coronary arteriosclerosis Status: Chronic Comment: cath 05/2015 mild-moderate disease medical therapy recommended (5) Hypothyroidism Status: Chronic (6) Hyperlipemia Status: Chronic (7) GERD (gastroesophageal reflux disease) Status: Chronic (8) Hypertension Status: Chronic (9) COPD (chronic obstructive pulmonary disease) Status: Chronic (10) Chronic respiratory insufficiency Status: Chronic Comment: On home oxygen at night (11) S/P PTCA (percutaneous transluminal coronary angioplasty) Status: Chronic (12) PARESH (obstructive sleep apnea) Status: Chronic (13) COPD with moderate acute bronchitis Status: Acute History of Present Illness Date of Admission: 10/16/17 Chief Complaint: Hypoglycemia slurred speech. Cough mild short of breath The patient is a 62 year old F with multiple comorbidities including COPD, diabetes mellitus type 2, coronary artery status post stent in 2003, and other comorbidities came to ER with slurred speech and hypoglycemia. This slurred speech was found by the home health nurse and she called 911. EMS found her blood sugar 62. Oral mucosa given blood sugar dropped to 47. Furthermore, patient is having hypoglycemia episodes for last 1-2 weeks has never been doing so that low. Besides that, patient is also mild short of breath and having cough for last 3-4 weeks. She has history of COPD. She had chest x-ray by her PCP and was told no pneumonia but was given Levaquin probably thinking of bronchitis. Denies fever or chills, chest tightness, chest pain or syncope. [] In ED, BMP blood sugar source 59, and after that D50, blood sugar went up to 100 than dropped further to 77. Most recent blood sugar is 123 at 6:30 PM. Past Medical History Past Medical History (Chronic Problems): Chronic Problems Diabetes mellitus type 2 in obese (Chronic) Coronary arteriosclerosis (Chronic) cath 05/2015 mild-moderate disease medical therapy recommended Hypothyroidism (Chronic) Hyperlipemia (Chronic) GERD (gastroesophageal reflux disease) (Chronic) Hypertension (Chronic) COPD (chronic obstructive pulmonary disease) (Chronic) Chronic respiratory insufficiency (Chronic) On home oxygen at night S/P PTCA (percutaneous transluminal coronary angioplasty) (Chronic) PARESH (obstructive sleep apnea) (Chronic) Allergies ciprofloxacin [From Cipro] Allergy (Verified 10/16/17 15:13) Hives ciprofloxacin HCl [From Cipro] Allergy (Verified 10/16/17 15:13) Hives latex Allergy (Verified 10/16/17 15:13) matos me niacin [From Niaspan Extended-Release] Allergy (Verified 10/16/17 15:13) Hives Penicillins Allergy (Verified 10/16/17 15:13) Itching/redness orphenadrine citrate [From Norgesic] Adverse Reaction (Verified 10/16/17 15:13) groggy medical tape Adverse Reaction (Uncoded 10/16/17 15:13) blisters Home Medications: Ambulatory Orders Medication Instructions Recorded Duloxetine Hcl [Cymbalta] 60 mg PO DAILY 06/19/15 Surgical History: angioplasty, cholecystectomy, herniorrhaphy, hysterectomy, - - tubal ligation. Psychiatric History: No pertinent psych hx LOG CUT OFF SAWYER History: No pertinent LOG CUT OFF SAWYER history Smoking Status: Former smoker - *Family History Maternal History Items: No pertinent history Paternal History Items: Heart Disease, Stroke - age 62 Offspring History Items: No pertinent history - 5 children, 32 grand children and great grandchildren Review of Systems Constitutional: Reports: Malaise, Weakness, Fatigue. Denies: Chills, Fever, Weight Change HEENT: Denies: Head Aches, Sinus Congestion, Sinus Drainage Cardiovascular: Denies: Chest Pain, Palpitations Respiratory: Reports: Cough, Shortness of Breath, Shortness of breath at rest, Shortness of breath upon exertion - Shortness of breath worse on walking even 10 feet., -. Denies: Sputum production Gastrointestinal: Reports: Constipation, - - Abdominal discomfort due to gastroparesis. Denies: Abdominal Pain, Nausea, Vomiting Genitourinary: Denies: Dysuria Musculoskeletal: Reports: Joint Pain, Joint stiffness. Denies: Joint Tenderness Skin: Denies: Rash, Wounds Neurological: Denies: Numbness, Tingling, Focal weakness Psychiatric: Denies: Anxiety, Depression, Homicidal Ideations, Suicidal Ideations Hematologic/ Lymphatic: Denies: Easy Bruising, Easy Bleeding VTE Information - Inpt Only VTE Present on Admission: No VTE Mechan Device Prophylaxis: SCD's VTE Pharm Prophylaxis ordered?: Yes Patient Problems: Active and Suspected Problems Acute metabolic encephalopathy due to hypoglycemia (Acute) Acute hypoglycemia (Acute) COPD with moderate acute bronchitis (Acute) - Physical Exam General: Oriented x3, Cooperative, Lethargic HEENT: Atraumatic, PERRLA, EOMI, Normocephalic Oral: Dry Mucosa Neck: Supple, No JVD, Negative Carotid Bruits Lungs: Diminished, Rhonchi, Wheezes Cardiovascular: Regular rate, No murmurs Abdomen: Bowel Sounds Present, Soft, Non Tender, Non-Distended Extremities: Capillary Refill Less than 3 Seconds, Edema Skin: No rashes, No breakdown Musculoskeletal: No Tenderness to Palpation of Joints or Extremities, Arthritic Changes, Muscle Wasting Neurological: Cranial nerves II-XII grossly intact, Neuro grossly intact Psych/Mental Status: Normal Affect, Appropriate Vital Signs Temp Pulse Resp BP Pulse Ox 98.3 F 65 18 125/62 H 97 10/16/17 20:17 10/16/17 20:17 10/16/17 20:17 10/16/17 20:17 10/16/17 20:17 Oxygen Flow Rate 3 Oxygen Delivery Method Nasal Cannula Weight: 223 lb 3.2 oz Body Mass Index (BMI) 40.8 POC Glucose POC Glucose 123 H Assessment/Plan Active and Suspected Problems Acute metabolic encephalopathy due to hypoglycemia (Acute) Acute hypoglycemia (Acute) COPD with moderate acute bronchitis (Acute) The patient is a 62 year old F with multiple comorbidities including COPD, diabetes mellitus type 2, coronary artery status post stent in 2003, and other comorbidities came to ER with slurred speech and hypoglycemia. This slurred speech was found by the home health nurse and she called 911. EMS found her blood sugar 62. Oral mucosa given blood sugar dropped to 47. Furthermore, patient is having hypoglycemia episodes for last 1-2 weeks has never been doing so that low. Besides that, patient is also mild short of breath and having cough for last 3-4 weeks. She has history of COPD. She had chest x-ray by her PCP and was told no pneumonia but was given Levaquin probably thinking of bronchitis. Denies fever or chills, chest tightness, chest pain or syncope. [] In ED, BMP blood sugar source 59, and after that D50, blood sugar went up to 100 than dropped further to 77. Most recent blood sugar is 123 at 6:30 PM. She was admitted last time in April 2017 for acute metabolic encephalopathy due to Enterobacter acute cystitis and sepsis. 1. Acute metabolic encephalopathy due to hypoglycemia: Patient is being admitted on the regular MedSurg floor. Currently patient is on her baseline. Correct underlying cause. 2. Acute on recurrent hypoglycemia due to diabetes mellitus type 2: At this point time, it is exactly not clear why she is having repeated episodes of hypoglycemia as he does not change her dose of insulin or eating habit. Hold antidiabetic agents including insulin. Accu-Chek every 2 hourly until her blood sugar is more than 1 30 mg/dL for 322 times and then every 4 hourly. 3. Diabetes mellitus type 2, uncontrolled, labile: A1c tomorrow a.m. 4. COPD with moderate acute bronchitis: Repeat the chest x-ray PA and lateral. On bronchodilator, DuoNeb every 4 hourly, Mucinex, cough syrup, incentive spirometry, IV Solu-Medrol low dose, influenza test and sputum culture. 5. Coronary artery disease status post Cardiac cath in May 2015 mild-moderate disease medical therapy recommended: Continue home medications 6. Paroxysmal A. fib on apixaban 2.5 mg twice daily. Currently rate is controlled. Twelve-lead EKG ordered. Other multiple comorbidities include chronic hypoxic respiratory failure on home oxygen at night,, paroxysmal A. fib, GERD, dyslipidemia, hypertension, hypothyroidism and obstructive sleep apnea: Multiple comorbidities, functional decline complicates the present care. CODE STATUS: Advanced life directive discussed with the patient. Patient does not have living will. She wants every resuscitative measures including intubation and chest compression. Full code. About 16 minutes time spent for discussion. Patient wants further discussion with her family members. This note was generated with [employer] Mediaation software. Every effort was made to ensure accuracy, however computerized regulatory affairs analyst mistakes may persist. Code Visit Inpatient E AND M: 60580 Init Hosp L3 Procedures: 99656 Advncd Care Plan 30 Min 10/16/172055 <Electronically signed by Joseph Wright MD> Date Joseph Wright MD Cosigner Signature: Date (if applicable) CC: Bhupendra Oliveira MD; Joseph Wright MD Signed CHEST PA AND LATERAL Observed: 10/16/2017 Status: F Source: MEARS 8:51 PM [facility] REPOSITORY [facility] Imaging Services [address] [place] [id number] Chest PA and Lateral MR#: [id number] Acct: [id number] Name: TAMIA PANDA Rep #: [id number] : 1955 F 62 From: Rudolph Fonseca MD PCP: Bhupendra Oliveira MD Status: ADM NICOLE Study: Chest PA and Lateral Date of Exam: 10/16/17 Exam# [id number] Ordering Dr: Joseph Wright MD STUDY: X-RAY CHEST REASON FOR EXAM: Female, 62 years old. Shortness of breath. TECHNIQUE: PA and lateral views of the chest. COMPARISON: 06/04/2017. FINDINGS: There again are slightly prominent markings but no focal infiltrate is seen. There is no demonstrated pleural abnormality. There is moderate cardiac enlargement. Normal mediastinum and tracie. There is mild prominence of the pulmonary vasculature. There is atherosclerotic calcification of the aortic arch with tortuosity. Extensive Normal visualized ribs, clavicles, and shoulders. There is no demonstrated abnormality of the visualized soft tissue structures of the upper abdomen. RAD/Chest PA and Lateral IMPRESSION: Cardiomegaly and mild pulmonary venous congestion. Electronically Signed: Rudolph Fonseca MD at 0:15 EST Tel , Service support , CC: Bhupendra Oliveira MD; Joseph Wright MD Pipe Recovery Specialist: Signed BEDSIDE GLUCOSE Collected: 10/16/2017 Status: F Source: [place] 8:05 PM [facility] REPOSITORY TYPE CODE TESTS RESULT OUT OF REFERENCE UNITS RANGE LAB L501.080 70-110 mg/dL High BEDSIDE GLU 141 Result Comment: MANAGEMENT OF PATIENT CARE PER NURSING PROTOCOL Performed By: #### L501.080 #### [facility] Point of Care [address] [place] [address] BEDSIDE GLUCOSE Collected: 10/16/2017 Status: F Source: [place] 6:33 PM [facility] REPOSITORY TYPE CODE TESTS RESULT OUT OF REFERENCE UNITS RANGE LAB L501.080 70-110 mg/dL High BEDSIDE GLU 123 Result Comment: MANAGEMENT OF PATIENT CARE PER NURSING PROTOCOL Performed By: #### L501.080 #### [place] [facility] Point of Care [address] [place] [address] BEDSIDE GLUCOSE Collected: 10/16/2017 Status: F Source: [place] 5:27 PM [facility] REPOSITORY TYPE CODE TESTS RESULT OUT OF RANGE REFERENCE UNITS LAB L501.080 70-110 mg/dL Normal BEDSIDE GLU 77 Result Comment: MANAGEMENT OF PATIENT CARE PER NURSING PROTOCOL Performed By: #### L501.080 #### [facility] Point of Care [address] [place] [address] BRAIN/HEAD WITHOUT Observed: 10/16/2017 Status: F Source: MEARS CONTRAST 4:22 PM [facility] REPOSITORY [facility] Imaging Services [address] [place] [address] Brain/Head without Contrast MR#: [id number] Acct: [id number] Name: TAMIA PANDA Rep #: [id number] : 1955 F 62 From: Tejal Ardon MD PCP: Bhupendra Oliveira MD Status: REG ER Study: Brain/Head without Contrast Date of Exam: 10/16/17 Exam# [id number] Ordering Dr: Bao Miles DO STUDY: CT BRAIN WITHOUT CONTRAST REASON FOR EXAM: Female, 62 years old. Slurred speech, low blood sugar. Hx hypertension, diabetes, CVA, cervical cancer. RADIATION DOSAGE (If Supplied By Facility): CTDIvol = ( 44.99 ) mGy, DLP = ( 745.49 ) mGycm TECHNIQUE: Transaxial CT imaging of the brain was performed without administration of intravenous contrast material. Individualized dose optimization techniques were used for this CT. COMPARISON: May 12, 2017, August 27, 2016 FINDINGS: Normal soft tissue structures. Normal calvarium. There is mild cerebral atrophy with widening of the extra- axial spaces and ventricular dilatation. There are areas of decreased attenuation within the white matter tracts of the supratentorial brain, consistent with microvascular disease changes. Normal basal ganglia and thalami. Normal brainstem. Normal cerebellum. There is no intracranial hemorrhage. There are no findings of an acute ischemic infarction. Mucoperiosteal thickening is noted in the right maxillary antrum and in posterior ethmoid air spaces on the right. It appears there has been a prior ostiomeatal complex resection. I note in the right nasal airway it appears that there is a stent. Clinical correlation recommended. This measures approximately 2.2 cm in length as seen on image #16 series 4. Bilateral sphenoid sinus with periosteal thickening noted. Partial opacity is noted in the right mastoid airspace and middle ear cavity. CT/Brain/Head without Contrast IMPRESSION: Chronic involutional changes of the brain. Sinus disease. It appears that there is a stent in the right nasal cavity, clinical correlation recommended. It was present previously dating at least back to August 27, 2016. Electronically Signed: [place] Ardon MD at 17:10 EST Tel , Service support , CC: Bhupendra Oliveira MD; Bao Miles DO Pipe Recovery Specialist: Signed BEDSIDE GLUCOSE Collected: 10/16/2017 Status: F Source: K[place] 4:05 PM [facility] REPOSITORY TYPE CODE TESTS RESULT OUT OF RANGE REFERENCE UNITS LAB L501.080 70-110 mg/dL Normal BEDSIDE GLU 107 Result Comment: MANAGEMENT OF PATIENT CARE PER NURSING PROTOCOL Performed By: #### L501.080 #### [facility] Point of Care [address] [facility] [place] [address] BEDSIDE GLUCOSE Collected: 10/16/2017 Status: F Source: [place] 3:26 PM [facility] REPOSITORY TYPE CODE TESTS RESULT OUT OF REFERENCE UNITS RANGE LAB L501.080 70-110 mg/dL High BEDSIDE GLU 200 Result Comment: MANAGEMENT OF PATIENT CARE PER NURSING PROTOCOL Performed By: #### L501.080 #### [facility] Point of Care [address] [place] [address] COMPREHENSIVE METABOLIC Collected: 10/16/2017 Status: F Source: [place] PROFIL 2:55 PM [facility] REPOSITORY TYPE CODE TESTS RESULT OUT OF RANGE REFERENCE UNITS LAB L501.0100 70-110 mg/dL Low GLU 59 LAB L501.1000 7-18 mg/dL Normal BUN 9 LAB L501.1100 0.55-1.02 mg/dL Normal 0.77 CREAT,SERUM Result Comment: The validity of the calculated GFR AND GFRAA in patients over 70 years has not been determined. Clinical correlation is essential. LAB L501.1110 >60 mL/min Normal EST GFR 81 Result Comment: Non- GFR Calc LAB L501.1115 >60 mL/min Normal EST GFR - AA 98 Result Comment: GFR Calc LAB L501.1255 ml/min Normal Estimated CRCL 59.91 LAB L501.1300 10-20 RATIO Normal BUN/CRE 11.7 LAB L501.1500 6.4-8. g/dL Normal 2 T PROT 7.8 LAB L501.1800 3.4-5. g/dL Low 0 ALB 3.2 Result Comment: Please note revised Albumin AND Globulin reference range effective 2017. LAB L501.1950 2.2-4.2 g/dL High GLOB 4.6 LAB L501.2000 0.9-2.4 RATIO Low A/G 0.7 LAB L501.2200 8.5-10.1 mg/dL Normal CA 8.8 LAB L501.4100 15-37 U/L Normal AST 19 Result Comment: Slight Hemolysis, Result may be falsely increased. LAB L501.4305 45-117 U/L Normal ALK P 46 LAB L501.4405 12-78 U/L Normal ALT 16 LAB L501.4600 0.20-1.00 mg/dL Normal T BILI 0.50 LAB L501.5300 136-145 mmol/L Normal NA 144 LAB L501.5600 3.5-5.1 mmol/L Low K 3.3 Result Comment: Slight Hemolysis, Result may be falsely increased. LAB L501.5900 98-107 mmol/L Normal CL 101 LAB L501.6100 21.0-32.0 mmol/L High CO2 36.0 LAB L501.6200 5-15 Normal 7 GAP Performed By: #### L500.4050 #### [facility] [address] [place], [address] CBC W/DIFF, AUTOMATED Collected: 10/16/2017 Status: F Source: MEARS 2:55 PM [facility] REPOSITORY TYPE CODE TESTS RESULT OUT OF RANGE REFERENCE UNITS LAB L100.1000 4.4-11.0 K/mm3 Normal WBC 6.9 LAB L100.1200 4.2-5.4 M/mm3 Low RBC 4.19 LAB L100.1300 12.0-15.0 g/dl Normal HGB 12.6 LAB L100.1400 37-47 % Normal HCT 40.4 LAB L100.1500 81-99 fL Normal MCV 96.4 LAB L100.1600 27.0-32.0 pg Normal MCH 30.1 LAB L100.1700 32-36 g/gl Low MCHC 31.2 LAB L100.1810 11.6-14.6 % High RDW CV 15.1 LAB L100.1820 35.1-43.9 fl High RDW SD 52.9 LAB L100.1900 150-450 K/mm3 Normal PLT 262 LAB L100.2000 6.2-12.0 fl Normal MPV 10.8 LAB L100.2100 47-70 % Normal NEUT% 64.4 LAB L100.2200 19-41 % Low LY% 17.2 LAB L100.2300 0-10 % High MONO% 12.6 LAB L100.2400 0-5 % High EO% 5.1 LAB L100.2500 0-1 % Normal BASO% 0.3 LAB L100.2550 0.0-0.9 % Normal IM GRAN % 0.400 Result Comment: IG% - Immature Granulocytes (promyelocytes, myelocytes and metamyelocytes) > 1% indicates that a LEFT SHIFT is Present. LAB L100.2620 2.0-7.7 X10 3/uL Normal Absolute Neut 4.4 LAB L100.2720 0.83-4.51 X10 3/ul Normal Absolute Lymph 1.19 Performed By: #### L100.0100 #### [facility] [address] [facility] [place], [address] BNP,B-TYPE NATRIURETIC Collected: 10/16/2017 Status: F Source: MEARS PEPTIDE 2:55 PM [facility] REPOSITORY TYPE CODE TESTS RESULT OUT OF RANGE REFERENCE UNITS LAB L503.6620 0-100 pg/mL High B-TYPE 153.0 STONEY PEP Performed By: #### L503.6620 #### [facility] [address] [place], [address] BEDSIDE GLUCOSE Collected: 10/16/2017 Status: F Source: MEARS 2:45 PM [facility] REPOSITORY TYPE CODE TESTS RESULT OUT OF REFERENCE UNITS RANGE LAB L501.080 70-110 mg/dL Low BEDSIDE GLU 57 Result Comment: MANAGEMENT OF PATIENT CARE PER NURSING PROTOCOL Performed By: #### L501.080 #### [facility] Point of Care [address] [place] [address] XR CHEST 2V FRONTAL/LAT Observed: 10/14/2017 Status: F Source: RUSSELL 11:44 AM [facility] REPOSITORY * * *Final Report* * * DATE OF EXAM: Oct 14 2017 11:44AM WOX [id number] - XR CHEST 2V FRONTAL/LAT / PROCEDURE REASON: multiple diagnoses * * * * Physician Interpretation * * * * [id number] XR CHEST 2V FRONTAL/LAT 10/14/2017 11:44 AM INDICATION: Shortness of breath Cough . 62 years / Female / [id number] Result: The heart size is enlarged. Calcified atheromatous changes noted in the thoracic aorta. The lung pérez are clear of infiltrate. Lung scarring noted. There is flattening of hemidiaphragms. The costophrenic angles are clear. Degenerative spine changes. No significant change in heart or lung findings compared to study 05/21/2017 IMPRESSION: There is some flattening of hemidiaphragms No acute infiltrate or effusion Pipe Recovery Specialist: [facility] Transcribe Date/Time: Oct 14 2017 6:59P Dictated by : KOREY NOWAK MD This examination was interpreted and the report reviewed and electronically signed by: KOREY NOWAK MD on Oct 14 2017 7:01PM EST [id number] Observed: 10/14/2017 Status: COMPLETED Source: RUSSELL 11:27 AM [facility] REPOSITORY HNO ID: [id number] Author: Geeta Mosqueda (Rt) Edis Celeste Service: (none) Author Type: Senior Java Architect Type: Progress Notes Filed: 10/14/2017 11:44 AM Note Text: Radiology Service Progress Note PATIENT NAME: Tamia Panda DATE OF SERVICE: October 14, 2017 TIME: 11:27 AM PATIENT IDENTITY VERIFICATION COMPLETED USING TWO (2) METHODS: Patient confirmed name verbally and Date of . PATIENT GENDER DATA: Female. status: : No status: NO. PATIENT RELEVANT IMPLANT DATA REVIEWED: Not Applicable RADIOLOGY DEPARTMENT: General X-ray: Exam(s) Completed: Chest X-Ray PERIPHERAL IV DATA: Not applicable SIGNED BY: RT Ruchi October 14, 2017 11:27 AM PROGRESS Observed: 10/14/2017 Status: COMPLETED Source: RUSSELL 10:51 AM [facility] REPOSITORY O ID: [id number] Author: Chris Oconnell Service: (none) Author Type: Nurse Practitioner Type: Progress Notes Filed: 10/14/2017 11:35 AM Note Text: 10/14/2017 Patient presents with: URI stomach issues SUBJECTIVE: This is a 62 year old that is here today for not feeling well for about 7 days. Started with losing voice, then progressed to cough, chills making her feel like she had a fever, but did not check, sore throat, nasal congestion, rhinorrhea, SOB. Wearing O2 more than normal. Using inhaler up to 3 times a day. Cough is hurting her ribs- feels like she should be able to cough something up, but not much coming. When she can, it is thick and green. Appetite is decreased, not more than baseline with gastroparesis. She has not yet scheduled appt with Dr. Cuellar. She states that she has not been able to get to the store to get the carnation instant breakfast suggested by daycare manager. She states that she has increased her water intake since feeling sick. Urinating and BMs as per normal. PAST MEDICAL HISTORY Diagnosis Date - Acute chronic obstructive pulmonary disease with respiratory failure (HCC) - AF (paroxysmal atrial fibrillation) ([facility]) - Anxiety - Arthritis Seeing Dr Elliott - Cervical cancer ([facility]) hysterectomy - CHF (congestive heart failure) ([facility]) - Constipation - COPD (chronic obstructive pulmonary disease) ([facility]) - Coronary atherosclerosis of [place] coronary artery Seeing Dr. Sosa - Cough - DDD (degenerative disc disease), lumbar - DM type 2 (diabetes mellitus, type 2) ([facility]) Seeing Dr. Foley for podiatry - DVT (deep venous thrombosis) ([facility]) Post op INA, BSO. - Dysphagia Seeing Dr. Beaulieu - Emphysema lung ([facility]) - Essential hypertension - Functional dyspepsia - Gastroparesis 2017 mild - GERD without esophagitis - Headache - History of colon polyps 11/28/2016 - Hyperlipidemia - Hypothyroidism - Incontinence Seeing Dr. Chapman - Morbid obesity (HCC) - Muscle weakness - Nausea - PARESH on CPAP [facility] - PE (pulmonary thromboembolism) ([facility]) Post op INA/BSO. - Pneumonia - RLS (restless legs syndrome) - Shortness of breath - Sleep apnea using oxygen currently, not on CPAP - Unsteadiness on feet - Wheezing ALLERGIES Adhesive Tape (Rosins); Cats; Dogs; Orphenadrine; Ciprofloxacin; Keflex [Cephalexin]; Niacin; Niacin Preparations; Penicillin G; Penicillins; Reglan [Metoclopramide Hcl]; Xanthines MEDICATIONS Current Outpatient Prescriptions: atorvastatin (LIPITOR) 40 mg tablet TAKE 1 TABLET BY MOUTH DAILY diltiazem CD (CARDIZEM CD, CARTIA XT) 180 mg 24 hr capsule TAKE 1 CAPSULE BY MOUTH EVERY MORNING levothyroxine (SYNTHROID) 100 mcg tablet TAKE 1 TABLET BY MOUTH EVERY MORNING omeprazole (PRILOSEC) 20 mg capsule TAKE 1 CAPSULE BY MOUTH EVERY MORNING ELIQUIS 2.5 mg tab tab(s) TAKE 1 TABLET BY MOUTH TWICE A DAY LYRICA 100 mg capsule TAKE 1 CAPSULE BY MOUTH THREE TIMES A DAY promethazine (PHENERGAN) 25 mg tablet Take 1 tablet by mouth every 6 hours as needed. SENNA 8.6 mg tab TAKE 1 TABLET BY MOUTH TWICE A DAY STOOL SOFTENER 100 mg capsule TAKE 1 CAPSULE BY MOUTH DAILY insulin lispro (HUMALOG KWIKPEN) 200 unit/mL (3 mL) injection Inject subcutaneously 18 units with breakfast, 24 units with lunch, and 28 units with dinner nitroglycerin sublingual (NITROQUICK) 0.4 mg SL tablet DISSOLVE 1 TAB UNDER THE TONGUE NEEDED FOR CHEST PAIN EVERY 5 MINUTES UP TO 3 TIMES. IF NO RELIEF CALL 911. metoprolol tartrate, short acting, (LOPRESSOR) 50 mg tablet Take 1 tablet by mouth twice daily. glucose 4 gram chewable tablet Take 4 tablets by mouth as needed for Low Blood Sugar. OXYGEN, HOME THERAPY, Inhale 3 L/min as instructed as directed. fluticasone (FLONASE) 50 mcg/actuation nasal spray Use 2 Sprays in each nostril once daily. metFORMIN ER (GLUCOPHAGE XR) 500 mg 24 hr tablet Take 2 tablets by mouth twice daily. DULoxetine (CYMBALTA) 60 mg capsule Take 1 capsule by mouth once daily. aspirin, enteric coated (ASPIRIN, ENTERIC COATED) 81 mg EC tablet Take 1 tablet by mouth every morning. BIPAP Bilevel PAP 15/11 cmH2O with 2 LPM oxygen bleed in, mask, tubing, filters, heated humidity, lifetime supplies. Please fax 30 day compliance download to [phone]. Dx: G47.33, G47.39. DME: [facility] furosemide (LASIX) 40 mg tablet Take 1 tablet by mouth twice daily. hydrOXYzine pamoate (VISTARIL) 25 mg capsule Take 1 capsule by mouth at bedtime as needed for Anxiety. ondansetron orally disintegrating (ZOFRAN ODT) 4 mg disintegrating tablet Take 4 mg by mouth every 8 hours as needed. albuterol HFA (VENTOLIN HFA) 90 mcg/actuation inhaler Inhale 2 Puffs as instructed every 4 hours as needed for Wheezing/Shortness of Breath. insulin glargine (LANTUS SOLOSTAR) 100 unit/mL (3 mL) inpn Inject 62 units subcutaneously twice daily COMPOUNDED PRESCRIPTION Evaluation for diabetic shoes and inserts Dx: E11.65, Z79.4 Ferrous Gluconate (FERGON) 324 mg (38 mg iron) tablet Take 1 tablet by mouth daily with breakfast. ascorbic acid, vitamin C, (VITAMIN C) 500 mg tablet Take 1 tablet by mouth once daily. blood sugar diagnostic (ONETOUCH ULTRA TEST) test strip Use as directed to check blood sugar 4-5 times daily DX: E11.65 Insulin: yes DM: yes lancets (ONE TOUCH DELICA) 33 gauge misc Use as directed to check blood sugar 4-5 times daily DX: E11.65 Insulin: yes DM: yes Incontinence Pad, Liner, Disp pads 1 Device as needed (urinary incontinence). Prevail incontinence pads. Dx: urinary incontinence. Size: small isosorbide mononitrate ER (IMDUR) 60 mg 24 hr tablet Take 1 tablet by mouth once daily. In the morning insulin needles, DISPOSABLE, (BD INSULIN PEN NEEDLE UF) 31 gauge x 5/16 ndle UAD to inject insulins sucralfate (CARAFATE) 1 gram tablet TAKE 1 TABLET BY MOUTH THREE TIMES DAILY. acetaminophen (TYLENOL) 325 mg tablet Take 2 tablets by mouth every 6 hours as needed for Pain. Blood Pressure Cuff - Home Use BLOOD PRESSURE CUFF FOR HOME USE. DX: LABILE BLOOD PRESSURE Blood-Glucose Meter (ONETOUCH ULTRA2) monitoring kit UAD to test blood sugar Alcohol Swabs padm UAD to clean skin before testing blood sugar and injecting insulins. fluticasone-salmeterol (ADVAIR DISKUS) 250-50 mcg/dose dsdv Inhale 1 Puff as instructed twice daily. No current facility-administered medications for this visit. Medications and allergies reviewed by this provider. 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 Social History Main Topics Smoking status: Former Smoker Packs/day: 1.00 Years: 28.00 Types: Cigarettes Start date: 1978 Quit date: 09/22/2005 Smokeless status: Never Used Comment: Father smoked in childhood. 2nd spouse smoked in home. Alcohol use: No Drug use: No Sexual activity: No Social History Narrative 1 year in current home. No basement, 1 parakeet. Room A/C. Electric baseboard heat. REVIEW OF SYSTEMS see HPI OBJECTIVE: BP 100/72 (BP Site: Left Arm, BP Position: Sitting, BP Cuff Size: Large Adult) Pulse 111 Temp 36.9 ?C (98.5 ?F) (Right Tympanic) Resp (!) 32 Wt 102.9 kg (226 lb 12.8 oz) SpO2 90% BMI 41.48 kg/m2. Vital signs reviewed by this provider. PHYSICAL EXAMINATION: General appearance: ill appearing- nontoxic, alert, in no acute distress, well-hydrated, well nourished. Skin: Skin color, texture, turgor normal, no suspicious rashes or lesions Head: Normocephalic, no masses, lesions, tenderness or abnormalities Eyes: Anicteric sclera. Pupils are equally round and reactive to light. Extraocular movements are intact. Ears: External ears normal, canals clear Nose/Sinuses: Positive findings: mucosa erythematous and swollen, clear rhinorrhea, purulent rhinorrhea Oropharynx: Positive findings: moderate oropharyngeal erythema Neck: Supple, no adenopathy; thyroid symmetric, normal size Lungs: Positive findings: diminished bases, rhonchi , mild shortness of breath: At rest, Cough Heart: RRR without murmur, gallop, or rubs. No ectopy Extremities: No deformities, edema, skin discoloration, clubbing or cyanosis. Good capillary refill. , Pulses: 2+ ASSESSMENT/PLAN: 1. Cough - ICD9: 786.2, ICD10: R05 (primary diagnosis) - concern for pneumonia with SOB, decreased O2 sats, cough, and diminished lung sounds in bases- last had PNA in April - XR CHEST 2V FRONTAL/LAT - LEVOFLOXACIN 750 MG TABLET- multiple antibiotic allergies- tolerated well in past. Discussed to take at separate times from carafate and iron - encouraged to consider humidifier - encouraged rest and increased hydration - educated on importance of deep breathing and coughing - discussed importance of following up if symptoms do not start to resolve or if they worsen 2. SOB (shortness of breath) - ICD9: 786.05, ICD10: R06.02 - see above - XR CHEST 2V FRONTAL/LAT - LEVOFLOXACIN 750 MG TABLET 3. URI, acute - ICD9: 465.9, ICD10: J06.9 - Symptomatic treatment with prn analgesia - Supportive care with fluids and rest - The patient may also use OTC cough and cold meds as needed and warm salt water gargles, throat lozenges and/or OTC throat spray as needed. 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 CNP CNOV Observed: 10/14/2017 Status: COMPLETED Source: RUSSELL 10:20 AM [facility] REPOSITORY Office Visit (FAMPWS) TAMIA PANDA ([id number]) 1955 F Date Time Provider Department 10/14/17 10:20 AM CHRIS OCONNELL) FAMPWS During your visit today, we recorded the following information about you: Temperature Pulse Respiration Blood pressure 98.5 degrees 111/minute 32/minute 100/72 Weight 102.9 kg Chris OconnellLM 10/14/2017 11:35 AM Signed 10/14/2017 Patient presents with: URI stomach issues SUBJECTIVE: This is a 62 year old that is here today for not feeling well for about 7 days. Started with losing voice, then progressed to cough, chills making her feel like she had a fever, but did not check, sore throat, nasal congestion, rhinorrhea, SOB. Wearing O2 more than normal. Using inhaler up to 3 times a day. Cough is hurting her ribs- feels like she should be able to cough something up, but not much coming. When she can, it is thick and green. Appetite is decreased, not more than baseline with gastroparesis. She has not yet scheduled appt with Dr. Cuellar. She states that she has not been able to get to the store to get the carnation instant breakfast suggested by daycare manager. She states that she has increased her water intake since feeling sick. Urinating and BMs as per normal. PAST MEDICAL HISTORY Diagnosis Date - Acute chronic obstructive pulmonary disease with respiratory failure ([facility]) - AF (paroxysmal atrial fibrillation) ([facility]) - Anxiety - Arthritis Seeing Dr Elliott - Cervical cancer ([facility]) hysterectomy - CHF (congestive heart failure) ([facility]) - Constipation - COPD (chronic obstructive pulmonary disease) ([facility]) - Coronary atherosclerosis of [place] coronary artery Seeing Dr. Sosa - Cough - DDD (degenerative disc disease), lumbar - DM type 2 (diabetes mellitus, type 2) ([facility]) Seeing Dr. Foley for podiatry - DVT (deep venous thrombosis) ([facility]) Post op INA, BSO. - Dysphagia Seeing Dr. Beaulieu - Emphysema lung ([facility]) - Essential hypertension - Functional dyspepsia - Gastroparesis 2017 mild - GERD without esophagitis - Headache - History of colon polyps 11/28/2016 - Hyperlipidemia - Hypothyroidism - Incontinence Seeing Dr. Chapman - Morbid obesity ([facility]) - Muscle weakness - Nausea - [facility] - PE (pulmonary thromboembolism) ([facility]) Post op INA/BSO. - Pneumonia - RLS (restless legs syndrome) - Shortness of breath - Sleep apnea using oxygen currently, not on CPAP - Unsteadiness on feet - Wheezing ALLERGIES Adhesive Tape (Rosins); Cats; Dogs; Orphenadrine; Ciprofloxacin; Keflex [Cephalexin]; Niacin; Niacin Preparations; Penicillin G; Penicillins; Reglan [Metoclopramide Hcl]; Xanthines MEDICATIONS Current Outpatient Prescriptions: atorvastatin (LIPITOR) 40 mg tablet TAKE 1 TABLET BY MOUTH DAILY diltiazem CD (CARDIZEM CD, CARTIA XT) 180 mg 24 hr capsule TAKE 1 CAPSULE BY MOUTH EVERY MORNING levothyroxine (SYNTHROID) 100 mcg tablet TAKE 1 TABLET BY MOUTH EVERY MORNING omeprazole (PRILOSEC) 20 mg capsule TAKE 1 CAPSULE BY MOUTH EVERY MORNING ELIQUIS 2.5 mg tab tab(s) TAKE 1 TABLET BY MOUTH TWICE A DAY LYRICA 100 mg capsule TAKE 1 CAPSULE BY MOUTH THREE TIMES A DAY promethazine (PHENERGAN) 25 mg tablet Take 1 tablet by mouth every 6 hours as needed. SENNA 8.6 mg tab TAKE 1 TABLET BY MOUTH TWICE A DAY STOOL SOFTENER 100 mg capsule TAKE 1 CAPSULE BY MOUTH DAILY insulin lispro (HUMALOG KWIKPEN) 200 unit/mL (3 mL) injection Inject subcutaneously 18 units with breakfast, 24 units with lunch, and 28 units with dinner nitroglycerin sublingual (NITROQUICK) 0.4 mg SL tablet DISSOLVE 1 TAB UNDER THE TONGUE NEEDED FOR CHEST PAIN EVERY 5 MINUTES UP TO 3 TIMES. IF NO RELIEF CALL 911. metoprolol tartrate, short acting, (LOPRESSOR) 50 mg tablet Take 1 tablet by mouth twice daily. glucose 4 gram chewable tablet Take 4 tablets by mouth as needed for Low Blood Sugar. OXYGEN, HOME THERAPY, Inhale 3 L/min as instructed as directed. fluticasone (FLONASE) 50 mcg/actuation nasal spray Use 2 Sprays in each nostril once daily. metFORMIN ER (GLUCOPHAGE XR) 500 mg 24 hr tablet Take 2 tablets by mouth twice daily. DULoxetine (CYMBALTA) 60 mg capsule Take 1 capsule by mouth once daily. aspirin, enteric coated (ASPIRIN, ENTERIC COATED) 81 mg EC tablet Take 1 tablet by mouth every morning. BIPAP Bilevel PAP 15/11 cmH2O with 2 LPM oxygen bleed in, mask, tubing, filters, heated humidity, lifetime supplies. Please fax 30 day compliance download to [phone]. Dx: G47.33, G47.39. DME: [facility] furosemide (LASIX) 40 mg tablet Take 1 tablet by mouth twice daily. hydrOXYzine pamoate (VISTARIL) 25 mg capsule Take 1 capsule by mouth at bedtime as needed for Anxiety. ondansetron orally disintegrating (ZOFRAN ODT) 4 mg disintegrating tablet Take 4 mg by mouth every 8 hours as needed. albuterol HFA (VENTOLIN HFA) 90 mcg/actuation inhaler Inhale 2 Puffs as instructed every 4 hours as needed for Wheezing/Shortness of Breath. insulin glargine (LANTUS SOLOSTAR) 100 unit/mL (3 mL) inpn Inject 62 units subcutaneously twice daily COMPOUNDED PRESCRIPTION Evaluation for diabetic shoes and inserts Dx: E11.65, Z79.4 Ferrous Gluconate (FERGON) 324 mg (38 mg iron) tablet Take 1 tablet by mouth daily with breakfast. ascorbic acid, vitamin C, (VITAMIN C) 500 mg tablet Take 1 tablet by mouth once daily. blood sugar diagnostic (M/A-COMUCH ULTRA TEST) test strip Use as directed to check blood sugar 4-5 times daily DX: E11.65 Insulin: yes DM: yes lancets (ONE TOUCH DELICA) 33 gauge misc Use as directed to check blood sugar 4-5 times daily DX: E11.65 Insulin: yes DM: yes Incontinence Pad, Liner, Disp pads 1 Device as needed (urinary incontinence). Prevail incontinence pads. Dx: urinary incontinence. Size: small isosorbide mononitrate ER (IMDUR) 60 mg 24 hr tablet Take 1 tablet by mouth once daily. In the morning insulin needles, DISPOSABLE, (BD INSULIN PEN NEEDLE UF) 31 gauge x 5/16ANDquot; ndle UAD to inject insulins sucralfate (CARAFATE) 1 gram tablet TAKE 1 TABLET BY MOUTH THREE TIMES DAILY. acetaminophen (TYLENOL) 325 mg tablet Take 2 tablets by mouth every 6 hours as needed for Pain. Blood Pressure Cuff - Home Use BLOOD PRESSURE CUFF FOR HOME USE. DX: LABILE BLOOD PRESSURE Blood-Glucose Meter (VersionOneTOUCH ULTRA2) monitoring kit UAD to test blood sugar Alcohol Swabs padm UAD to clean skin before testing blood sugar and injecting insulins. fluticasone-salmeterol (ADVAIR DISKUS) 250-50 mcg/dose dsdv Inhale 1 Puff as instructed twice daily. No current facility-administered medications for this visit. Medications and allergies reviewed by this provider. 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 Social History Main Topics Smoking status: Former Smoker Packs/day: 1.00 Years: 28.00 Types: Cigarettes Start date: 1978 Quit date: 09/22/2005 Smokeless status: Never Used Comment: Father smoked in childhood. 2nd spouse smoked in home. Alcohol use: No Drug use: No Sexual activity: No Social History Narrative 1 year in current home. No basement, 1 parakeet. Room A/C. Electric baseboard heat. REVIEW OF SYSTEMS see HPI OBJECTIVE: BP 100/72 (BP Site: Left Arm, BP Position: Sitting, BP Cuff Size: Large Adult) Pulse 111 Temp 36.9 ?C (98.5 ?F) (Right Tympanic) Resp (!) 32 Wt 102.9 kg (226 lb 12.8 oz) SpO2 90% BMI 41.48 kg/m2. Vital signs reviewed by this provider. PHYSICAL EXAMINATION: General appearance: ill appearing- nontoxic, alert, in no acute distress, well-hydrated, well nourished. Skin: Skin color, texture, turgor normal, no suspicious rashes or lesions Head: Normocephalic, no masses, lesions, tenderness or abnormalities Eyes: Anicteric sclera. Pupils are equally round and reactive to light. Extraocular movements are intact. Ears: External ears normal, canals clear Nose/Sinuses: Positive findings: mucosa erythematous and swollen, clear rhinorrhea, purulent rhinorrhea Oropharynx: Positive findings: moderate oropharyngeal erythema Neck: Supple, no adenopathy; thyroid symmetric, normal size Lungs: Positive findings: diminished bases, rhonchi , mild shortness of breath: At rest, Cough Heart: RRR without murmur, gallop, or rubs. No ectopy Extremities: No deformities, edema, skin discoloration, clubbing or cyanosis. Good capillary refill. , Pulses: 2+ ASSESSMENT/PLAN: 1. Cough - ICD9: 786.2, ICD10: R05 (primary diagnosis) - concern for pneumonia with SOB, decreased O2 sats, cough, and diminished lung sounds in bases- last had PNA in April - XR CHEST 2V FRONTAL/LAT - LEVOFLOXACIN 750 MG TABLET- multiple antibiotic allergies- tolerated well in past. Discussed to take at separate times from carafate and iron - encouraged to consider humidifier - encouraged rest and increased hydration - educated on importance of deep breathing and coughing - discussed importance of following up if symptoms do not start to resolve or if they worsen 2. SOB (shortness of breath) - ICD9: 786.05, ICD10: R06.02 - see above - XR CHEST 2V FRONTAL/LAT - LEVOFLOXACIN 750 MG TABLET 3. URI, acute - ICD9: 465.9, ICD10: J06.9 - Symptomatic treatment with prn analgesia - Supportive care with fluids and rest - The patient may also use OTC cough and cold meds as needed and warm salt water gargles, throat lozenges and/or OTC throat spray as needed. 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 Referring Provider: SELF [[id number]] Allergies As of Date: 10/14/2017 Noted Allergy Reaction ADHESIVE TAPE (ROSINS) 04/04/2015 5 - Intolerance Comments: Surgical tape leaves rash Irritates skin badly and blisters along with medical tape CATS 04/10/2016 14 - Other: See Comments Comments: Congested and itchy, difficulty breathing DOGS 04/10/2016 14 - Other: See Comments Comments: Congestion, sneezing, and difficulty breathing ORPHENADRINE 04/10/2016 16 - Unknown CIPROFLOXACIN 12/11/2011 14 - Other: See Comments Comments: Red, hot, itchy rash KEFLEX (CEPHALEXIN) 07/10/2016 4 - Hives NIACIN 04/04/2015 16 - Unknown NIACIN PREPARATIONS 10/18/2004 PENICILLIN G 10/18/2004 PENICILLINS 04/04/2015 16 - Unknown REGLAN (METOCLOPRAMIDE HCL) 03/04/2017 14 - Other: See Comments Comments: Unable to sleep XANTHINES 10/18/2004 Date Reviewed: 10/14/2017 Reviewed by: Deysi Sepulveda Ma - Fully Assessed Reason for Visit: URI [115] stomach issues [Other] Primary Visit Diagnosis:Cough [R05] Other Visit Diagnoses:SOB (shortness of breath) [R06.02] URI, acute [J06.9] Order(s):XR CHEST 2V FRONTAL/LAT [3775932] Order #: [id number] FUTURE levoFLOXacin (LEVAQUIN) 750 mg tabletTake 1 tablet by mouth once daily for 7 days.Disp: 7 tabletRfl: 0 Prescriptions as of 10/14/2017 Sig: ATORVASTATIN 40 MG TABLET TAKE 1 TABLET BY MOUTH DAILY DILTIAZEM SR 180 MG 24 HR CAP TAKE 1 CAPSULE BY MOUTH EVERY* LEVOTHYROXINE 100 MCG TABLET TAKE 1 TABLET BY MOUTH EVERY * OMEPRAZOLE 20 MG CAPSULE,MARIA EUGENIA* TAKE 1 CAPSULE BY MOUTH EVERY* ELIQUIS 2.5 MG TABLET TAKE 1 TABLET BY MOUTH TWICE * LYRICA 100 MG CAPSULE TAKE 1 CAPSULE BY MOUTH THREE* PROMETHAZINE 25 MG TABLET Take 1 tablet by mouth every * SENNA 8.6 MG TABLET TAKE 1 TABLET BY MOUTH TWICE * STOOL SOFTENER 100 MG CAPSULE TAKE 1 CAPSULE BY MOUTH DAILY INSULIN LISPRO 200 UNIT/ML (3* Inject subcutaneously 18 unit* NITROGLYCERIN 0.4 MG SUBLINGU* DISSOLVE 1 TAB UNDER THE TONG* METOPROLOL TARTRATE 50 MG TAB* Take 1 tablet by mouth twice * GLUCOSE 4 GRAM CHEWABLE TABLET Take 4 tablets by mouth as ne* OXYGEN (HOME THERAPY) Inhale 3 L/min as instructed * FLUTICASONE 50 MCG/ACTUATION * Use 2 Sprays in each nostril * METFORMIN ER 500 MG TABLET,EX* Take 2 tablets by mouth twice* DULOXETINE 60 MG CAPSULE,MARIA EUGENIA* Take 1 capsule by mouth once * ASPIRIN 81 MG TABLET,DELAYED * Take 1 tablet by mouth every * BIPAP Bilevel PAP 15/11 cmH2O with * FUROSEMIDE 40 MG TABLET Take 1 tablet by mouth twice * ALBUTEROL SULFATE HFA 90 MCG/* Inhale 2 Puffs as instructed * INSULIN GLARGINE 100 UNIT/ML * Inject 62 units subcutaneousl* COMPOUNDED PRESCRIPTION Evaluation for diabetic shoes* FERROUS GLUCONATE 324 MG (38 * Take 1 tablet by mouth daily * ASCORBIC ACID (VITAMIN C) 500* Take 1 tablet by mouth once d* BLOOD SUGAR DIAGNOSTIC STRIPS Use as directed to check bloo* LANCETS 33 GAUGE Use as directed to check bloo* INCONTINENCE PAD, LINER, DISP* 1 Device as needed (urinary i* ISOSORBIDE MONONITRATE ER 60 * Take 1 tablet by mouth once d* PEN NEEDLE, DIABETIC 31 GAUGE* UAD to inject insulins SUCRALFATE 1 GRAM TABLET TAKE 1 TABLET BY MOUTH THREE * ACETAMINOPHEN 325 MG TABLET Take 2 tablets by mouth every* COMPOUNDED PRESCRIPTION BLOOD PRESSURE CUFF FOR HOME * BLOOD-GLUCOSE METER KIT UAD to test blood sugar ALCOHOL SWABS UAD to clean skin before test* FLUTICASONE 250 MCG-SALMETERO* Inhale 1 Puff as instructed t* LEVOFLOXACIN 750 MG TABLET Take 1 tablet by mouth once d* Problem List As Of Date 10/14/2017 Noted Resolved SUBJECTIVE TINNITUS [H93.19] INVALID FOR* Obstructive sleep apnea [G47.33] INVALID FOR* Hyperlipidemia [E78.5] INVALID FOR* Coronary disease [I25.10] INVALID FOR* Diabetes mellitus, type II ([facility]) [E11.9] INVALID FOR* Morbid obesity ([facility]) [E66.01] Hypothyroidism [E03.9] Anxiety [F41.9] Sleep apnea [G47.30] 02/14/2017 Essential hypertension [I10] Coronary atherosclerosis of [place] coronary art* AF (paroxysmal atrial fibrillation) ([facility]) [I48.* COPD (chronic obstructive pulmonary disease) (H* GERD without esophagitis [K21.9] Dysphagia [R13.10] Constipation [K59.00] DM type 2 (diabetes mellitus, type 2) ([facility]) [E1* 02/14/2017 Shortness of breath [R06.02] 02/14/2017 Arthritis [M19.90] More... CHF (congestive heart failure) ([facility]) [I50.9] BPPV (benign paroxysmal positional vertigo) [H8*INVALID FOR* RLS (restless legs syndrome) [G25.81] INVALID FOR* Iron deficiency concern: RE RLS [E61.1] INVALID FOR* Tubular adenoma [D36.9] INVALID FOR* Incontinence [R32] More... Gastroparesis [K31.84] INVALID FOR* Prescriptions ordered this encounter Disp Refills Start End LEVOFLOXACIN 750 MG TABLET 7 ta* 0 10/14/2017 10/21/2017 Route: ORAL Sig: Take 1 tablet by mouth once daily for 7 days. Medications Discontinued During This Encounter hydrOXYzine pamoate (VISTARIL) 25 mg* 30 c* 0 02/14/2017 10/14/2017 Route: ORAL Sig: Take 1 capsule by mouth at bedtime as needed for Anxiety. Disc: Reason for discontinue is not on file. ondansetron orally disintegrating (Z* 01/26/2017 10/14/2017 Class: Historical Med Route: ORAL Sig: Take 4 mg by mouth every 8 hours as needed. Disc: Reason for discontinue is not on file. levoFLOXacin (LEVAQUIN) 750 mg tablet 7 ta* 0 05/15/2017 10/14/2017 Route: ORAL Sig: Take 1 tablet by mouth once daily for 7 days. Patient not taking: Reported on 05/21/2017 Disc: Reason for discontinue is not on file. Encounter Status:Closed by CHRIS OCONNELL on 10/14/17 ALLERGIES ALLERGIES DATE TYPE / CODE NAME / CODE REACTION SEVERITY SOURCE Drug orphenadrine groggy Unknown Blain 8 Allergy/900633923 citrate/[id number] [facility] ([facility]) (RXNORM) Hospital Repository Drug Xanthines/[id number] Unknown Unknown Kinjal 8 Allergy/252523115 40(RXNORM) [facility] (SNOMED CT) Hospital Repository Drug niacin/P372040929( Hives Unknown Blain 8 Allergy/669960641 RXNORM) [facility] ([facility] CT) Hospital Repository Drug ciprofloxacin/F006 Hives Unknown Kinjal 8 Allergy/063147062 334487(RXNORM) [facility] ([facility] CT) Hospital Repository Drug ondansetron/H42769 Unknown Unknown Kinjal 8 Allergy/336550532 4807(RXNORM) [facility] (OMED CT) Hospital Repository Drug latex/L500014489(R matos me Unknown Kinjal 8 Allergy/984655396 XNORM) [facility] (OMED CT) Hospital Repository Miscellaneous medical tape blisters Unknown Kinjal 8 Allergy/749139965 [facility] ([facility] CT) Hospital Repository Drug Penicillins/F61879 Itching/redness DC Kinjal 8 Allergy/835605987 0476(RXNORM) [facility] ([facility] CT) Hospital Repository DRUG CAPSAICIN ITCHING Rojas 8 INGREDI/099013876 [facility] ([facility] CT) [place] Repository Drug cephalexin/H178077 Unknown Unknown Kinjal 8 Allergy/391091213 716(RXNORM) [facility] (SNOMED CT) Hospital Repository DRUG/166588378(SN ONDANSETRON HCL ITCHING Rojas [address]) (PF) Clinic Main [place] Repository Drug ciprofloxacin Hives Unknown Blain 8 Allergy/199853392 HCl/A439343625(RXN Community (SNOMED CT) ORM) Hospital Repository DRUG METOCLOPRAMIDE HCL OTHER: SEE C Rojas 7 INGREDI/229873421 [facility] (SNOMED CT) [place] Repository DRUG CEPHALEXIN HIVES Rojas 6 INGREDI/290112107 [facility] (SNOMED CT) [place] Repository Animal/344389290( CATS OTHER: SEE C Med Rojas [address]) [facility] [place] Repository Animal/230813843( DOGS OTHER: SEE C Med [place] [address]) [facility] [place] Repository DRUG ORPHENADRINE UNKNOWN Med Rojas 6 INGREDI/698924043 [facility] (SNOMED CT) [place] Repository Chemical/89826927 ADHESIVE TAPE INTOLERANCE High Rojas 5 6(SNOMED CT) (ROSINS) [facility] [place] Repository DRUG NIACIN UNKNOWN Rojas 5 INGREDI/290228858 [facility] (SNOMED CT) [place] Repository Drug PENICILLINS UNKNOWN Rojas 5 Class/599412660(S [facility] NOMED CT) [place] Repository DRUG CIPROFLOXACIN OTHER: SEE C Rojas 2 INGREDI/648608134 [facility] (SNOMED CT) [place] Repository Drug XANTHINES UNKNOWN Rojas 5 Class/569008253(S [facility] NOMED CT) [place] Repository Drug NIACIN Rojas 5 Class/900252151(S PREPARATIONS [facility] NOMED CT) [place] Repository DRUG PENICILLIN G Rojas 5 INGREDI/382199702 Clinic [facility] (SNOMED CT) [place] Repository Drug XANTHINES Rojas 5 Class/937202235(S [facility] NOMED CT) [place] Repository NG/234785196(SNOM ONDANSETRON HCL [facility] CT) (PF) [facility] Repository NG/556102864(SNOM ADHESIVE TAPE [facility] CT) (ROSINS) [facility] System Repository NG/713263971(SNOM CATS [facility] CT) [facility] Repository NG/749894802(SNOM DOGS [facility] CT) [facility] Repository NG/180180039(SNOM ORPHENADRINE [facility] CT) [facility] Repository NG/494387185(SNOM CIPROFLOXACIN [facility] CT) [facility] Repository NG/952648885(SNOM CEPHALEXIN [facility] CT) [facility] Repository NG/663926417(SNOM NIACIN [facility] CT) [facility] Repository NG/972588709(SNOM NIACIN [facility] CT) PREPARATIONS Health System Repository NG/678563029(SNOM PENICILLIN G [facility] CT) [facility] System Repository NG/423276207(SNOM PENICILLINS [facility] CT) [facility] System Repository NG/096272096(SNOM METOCLOPRAMIDE HCL [facility] CT) [facility] System Repository NG/513707833(SNOM XANTHINES [facility] CT) Health System Repository ENCOUNTERS ENCOUNTERS ADMIT/DISCHARGE ACCOUNT NUMBER ADMITTING ENCOUNTER LOCATION SOURCE CLASS 10/05/2018/10/06/19 [id number] Ambulatory [address] Repository 10/05/2018/10/05/19 [id number] Ambulatory [address] Repository 10/05/2018/10/07/19 [id number] Ambulatory [address] Repository 09/30/2018/09/30/19 [id number] Ambulatory [address] Repository 09/30/2018/09/30/19 [id number] Ambulatory [address] Repository 09/25/2018/09/25/19 [id number] Ambulatory [address] Repository 09/25/2018/09/28/19 [id number] Ambulatory [address] Repository 09/22/2018 [id number] Ambulatory [facility] Hospital ding:HHLAB Repository 09/09/2018 [id number] Annamarie Andrews Ambulatory BMSBuilding: Kinjal Guerreor BMS.Replaced by [facility] Repository 09/09/2018 [id number] Annamarie Andrews Ambulatory BMSBuilding: Kinjal Yolanda BMS.Replaced by [facility] Repository 09/09/2018 [id number] Annamarie Andrews Ambulatory BMSBuilding: Kinjal Yolanda BMS.Replaced by [facility] Repository 09/09/2018/09/11/20 [id number] Annamarie Andrews Inpatient Blain Kinjal 18 Yolanda [facility] ding:PCURoom Repository : [id number]: 1 09/02/2018 [id number] Sementi, Ambulatory BMSBuilding: Blain Anna BMS.Replaced by [facility] Repository 09/02/2018 [id number] Sementi, Ambulatory BMSBuilding: Blain Anna BMS.Replaced by [facility] Repository 09/02/2018/09/03/20 [id number] Sementi, Ambulatory [address] ding:PCURoom Repository : [id number]: 1 08/31/2018 [id number] Ambulatory [facility] ding:LAB Repository 08/31/2018/08/31/20 [id number] Ambulatory [address] ding:HHLAB Repository 08/17/2018/08/18/20 [id number] Ambulatory [address] Repository 08/13/2018/08/13/20 [id number] Emergency [address] ding:ED Repository 08/11/2018/08/21/20 [id number] Ambulatory [address] ding:LAB Repository 08/05/2018 [id number] Zuhair Cohn Ambulatory BMSBuilding: Blain BMS.Replaced by [facility] Repository 08/05/2018 [id number] [place], [place] Ambulatory BMSBuilding: Blain BMS.Replaced by [facility] Repository 08/05/2018/08/06/20 [id number] Zuhair Cohn Ambulatory [address] ding:PCURoom Repository : [id number]: 1 08/03/2018/08/04/20 [id number] Ambulatory [address] Repository 07/25/2018 [id number] Zuhair Cohn Ambulatory BMSBuilding: Blain BMS.Replaced by [facility] Repository 07/25/2018/07/26/20 [id number] Zuhair Cohn Ambulatory [address] ding:YY6Nvsd Repository : [id number]: 1 07/25/2018 [id number] Zuhair Cohn Ambulatory BMSBuilding: Kinjal BMS.Replaced by [facility] Repository 07/22/2018/07/22/20 [id number] Emergency [address] ding:ED Repository 06/03/2018/06/04/20 [id number] Ambulatory [address] Repository 05/20/2018/05/20/20 [id number] Ambulatory [address] Repository 05/20/2018/05/26/20 [id number] Ambulatory [address] Repository 05/17/2018 [id number] [place], [place] Ambulatory BMSBuilding: Blain BMS.Replaced by [facility] Repository 05/17/2018 [id number] [place], [place] Ambulatory BMSBuilding: Kinjal BMS.Replaced by [facility] Repository 05/17/2018/05/18/20 [id number] [place], [place] Inpatient [place] [address] Encounter [facility] ding:PCURoom Repository : [id number]: 1 05/06/2018/05/07/20 [id number] Ambulatory [address] Repository 05/01/2018/05/05/20 [id number] Ambulatory [address] Repository 04/13/2018 [id number] Ambulatory [facility] ding: Repository 04/13/2018/04/13/20 [id number] Ambulatory [address] Repository 04/13/2018/04/15/20 [id number] Ambulatory [address] Repository 04/04/2018 [id number] [place], [place] Ambulatory BMSBuilding: Blain BMS.Replaced by [facility] Repository 04/04/2018/04/07/20 [id number] [place], [place] Inpatient [place] [address] Encounter [facility] ding:PCURoom Repository : [id number]: 1 04/04/2018 [id number] [place], [place] Ambulatory BMSBuilding: Blain BMS.Replaced by [facility] Repository 04/04/2018 [id number] [place], [place] Ambulatory BMSBuilding: Blain BMS.Replaced by [facility] Repository 04/04/2018 [id number] [place], [place] Ambulatory BMSBuilding: Blain BMS.Replaced by [facility] Repository 03/20/2018/03/20/20 [id number] Ambulatory [address] Main [place] Repository 03/20/2018/03/24/20 [id number] Ambulatory [address] Main [place] Repository 03/20/2018/03/20/20 [id number] Ambulatory [address] [place] Repository 03/20/2018/03/20/20 [id number] Ambulatory [address] Repository 03/20/2018/03/20/20 [id number] Ambulatory [address] [place] Repository 03/20/2018/03/24/20 [id number] Ambulatory [address] [place] Repository 03/02/2018/03/03/20 [id number] Ambulatory [address] Main [place] Repository 03/02/2018/03/03/20 [id number] Ambulatory [address] [place] Repository 02/26/2018/02/27/20 [id number] Ambulatory [address] Repository 02/26/2018 [id number] Ambulatory [facility] MEDICAL Repository CENTERBuildi ng:CAGWS 02/20/2018/02/24/20 [id number] Ambulatory [address] Repository 02/07/2018 [id number] [facility] Ambulatory BMSBuilding: Blain BMS.Replaced by [facility] Repository 02/07/2018 [id number] [facility], [facility] Ambulatory BMSBuilding: Blain BMS.Replaced by [facility] Repository 02/07/2018 [id number] Olivia, [facility] Ambulatory BMSBuilding: Kinjal BMS.Replaced by [facility] Repository 02/07/2018 [id number] Olivia, [facility] Ambulatory BMSBuilding: Kinjal BMS.Replaced by [facility] Repository 02/07/2018/02/12/20 [id number] Olivia, Donn Inpatient Blain Blain 18 Encounter [facility] ding:PCURoom Repository : [id number]: 1 02/07/2018 [id number] Donn Baker Ambulatory BMSBuilding: Kinjal BMS.Replaced by [facility] Repository 02/03/2018 [id number] [facility], Ambulatory BMSBuilding: Blain Joseph BMS.Replaced by [facility] Repository 02/03/2018 [id number] [facility], Ambulatory BMSBuilding: Kinjal Joseph BMS.CF.[facility] Repository 02/03/2018 [id number] [facility], Ambulatory BMSBuilding: Blain Joseph [facility] Repository 02/03/2018 [id number] [facility], Ambulatory BMSBuilding: Blain Joseph BMS.Replaced by [facility] Repository 02/03/2018 [id number] [facility], Ambulatory BMSBuilding: Blain Joseph BMS.CF.[facility] Repository 02/03/2018 [id number] [facility], Ambulatory BMSBuilding: Kinjal Joseph [facility] Repository 02/03/2018 [id number] [facility], Ambulatory BMSBuilding: Blain Joseph BMS.CF.[facility] Repository 02/03/2018 [id number] [facility], Ambulatory BMSBuilding: Blain Joseph [facility] Repository 02/03/2018 [id number] [facility], Ambulatory BMSBuilding: Blain Joseph BMS.Replaced by [facility] Repository 02/03/2018/02/07/20 [id number] [facility], Inpatient Kinjal Kinjal 18 Joseph Encounter [facility] ding:PCURoom Repository : [id number]: 1 02/03/2018/02/07/20 [id number] Ambulatory [address] Repository 01/30/2018/02/01/20 [id number] CATHLEEN, Ambulatory [address] Repository 01/27/2018/02/06/20 [id number] Ambulatory [address] Repository 01/23/2018/01/24/20 [id number] Ambulatory [address] Repository 01/23/2018/01/24/20 [id number] Ambulatory [address] Repository 01/23/2018 [id number] Ambulatory [facility] Repository 01/23/2018/01/24/20 [id number] Ambulatory [address] [address] Repository 01/22/2018/01/27/20 [id number] Ambulatory [address] Repository 01/15/2018 [id number] Ambulatory [facility] Repository 01/15/2018/01/16/20 [id number] Ambulatory [address] Repository 01/15/2018/01/16/20 [id number] Emergency [address] ding:ED Repository 01/02/2018 [id number] Imamura, Ambulatory BMSBuilding: Blain Yoichi BMS.Replaced by [facility] Repository 01/02/2018 [id number] Imamura, Ambulatory BMSBuilding: [place]ain Yo[facility] BMS.Replaced by [facility] Repository 01/02/2018 [id number] Imamura, Ambulatory BMSBuilding: Blain Yoichi BMS.Replaced by [facility] Repository 01/02/2018/01/05/20 [id number] Imamura, Ambulatory [address] ding:PCURoom Repository : [id number]: 1 01/01/2018/01/03/20 [id number] Ambulatory [address] Repository 12/23/2017 [id number] Ambulatory BMSBuilding: [facility] Repository 12/23/2017 [id number] Ambulatory [facility] ding:CLSP Repository 12/18/2017/12/19/19 [id number] Ambulatory [address] Repository 12/18/2017/12/19/19 [id number] Ambulatory [address] MEDICAL Repository CENTERBuildi ng:CAGWS 12/17/2017 [id number] Ambulatory BMSBuilding: [facility] Repository 12/17/2017 [id number] Ambulatory [facility] ding:CVS Repository 12/16/2017/12/17/19 [id number] Ambulatory [address] Repository 12/16/2017/12/17/19 [id number] Ambulatory [address] MEDICAL Repository CENTERBuildi ng:CAGWS 12/15/2017 [id number] Ambulatory [facility] Repository 12/15/2017/12/16/19 [id number] CATHLEEN, Ambulatory [address] Repository 12/15/2017/12/17/19 [id number] MARGOTHE, Ambulatory [address] Repository 12/15/2017/12/27/19 [id number] MARGOTHE, Ambulatory [address] Repository 12/15/2017/12/16/19 [id number] TOMASAMERE, Ambulatory [address] Repository 12/15/2017/12/16/19 [id number] TOMASAMERDonato, Ambulatory [address] Repository 12/15/2017/12/16/19 [id number] TOMASAMERDonato, Ambulatory [address] Repository 12/15/2017 [id number] CATHLEEN, Ambulatory [facility] Repository 12/11/2017/12/12/19 [id number] Ambulatory [address] Repository 12/11/2017/12/13/19 [id number] Ambulatory [address] Repository 12/11/2017 [id number] Ambulatory [facility] ding:BI Repository 11/27/2017/12/02/19 [id number] Ambulatory [address] Repository 11/24/2017 [id number] [facility] ding:SDC Repository 11/14/2017/11/14/19 [id number] Ambulatory [address] Repository 11/05/2017/11/05/19 [id number] Ambulatory [address] Repository 10/23/2017/10/23/19 [id number] Ambulatory [address] Repository 10/23/2017/10/28/19 [id number] Ambulatory [address] Repository 10/16/2017 [id number] Kyle, Ambulatory BMSBuilding: [facility]ain Joseph BMS.Replaced by [facility] Repository 10/16/2017 [id number] [facility], Ambulatory BMSBuilding: Blain Joseph BMS.Replaced by [facility] Repository 10/16/2017/10/17/19 [id number] Kyle, [facility] ding:II8Ofaf Repository : [id number]: 1 10/14/2017/10/14/19 [id number] Ambulatory [address] Repository 10/14/2017/10/14/19 [id number] Ambulatory [address] Repository PAYERS PAYERS ENCOUNTER GUARANTOR PAYER SUBSCRIBER SOURCE 09/22/2018 TAMIA J [id number] Primary TAMIA J Kin[address] Insurance:[facility] SENZDOB: [id number] [facility] [id number] Hospital [address]Jrt: (330) Number: Repository [phone] () [id number] Date:5343-23-28KO [address] [address]SR: 09/22/2018 Secondary NOT GIVENUNK Kinjal Insurance:SELF PAY [facility] Number: Effective Repository Date:2018-09-21 09/09/2018 TAMIA J [id number] Primary TAMIA J Blain [address] Insurance:[facility] SENZDOB: Community [id number][place] [facility] [id number] Hospital [address]Cxy: (330) Number: Repository [phone] () [id number] Date:0432-74-65KI [address] [address]XX: 09/09/2018 Secondary NOT GIVENUNK Blain Insurance:SELF PAY [facility] Number: Effective Repository Date:2018-09-09 09/09/2018 TAMIA J [id number] Primary TAMIA J Kin[address] Insurance:[facility] SENZDOB: Community [id number][place] [facility] [id number] Hospital [address]Zga: (330) Number: Repository [phone] () [id number] Date:9078-41-61UQ[address] [address]OH: 09/09/2018 Secondary NOT GIVENUNK Blain Insurance:SELF PAY [facility] Number: Effective Repository Date:2018-09-09 09/09/2018 TAMIA J [id number] Primary TAMIA J Blain [address] Insurance:[facility] SENZDOB: [place] [id number][place] [facility] [id number] Hospital [address]Zge: (330) Number: Repository [phone] () [id number] Date:5273-08-10SB[address] [address]UH: 09/09/2018 Secondary NOT GIVENUNK Kinjal Insurance:SELF PAY [facility] Number: Effective Repository Date:2018-09-09 09/09/2018 TAMIA J [id number] Primary TAMIA J Kin[address] Insurance:[facility] SENZDOB: Community [id number][place] [facility] [id number] Hospital [address]Plz: (330) Number: Repository [phone] () [id number] Date:7715-09-09PU[address] [address]ZP: 09/09/2018 Secondary NOT GIVENUNK Blain Insurance:SELF PAY [facility] Number: Effective Repository Date:2018-09-09 09/02/2018 TAMIA J [id number] Primary TAMIA J Kin[address] Insurance:[facility] SENZDOB: Community [id number][place] [facility] [id number] Hospital [address]Etc: (330) Number: Repository [phone] () [id number] Date:1161-89-21WG[address] [address]XZ: 09/02/2018 Secondary NOT GIVENUNK Kinjal Insurance:SELF PAY [facility] Number: Effective Repository Date:2018-09-02 09/02/2018 TAMIA J [id number] Primary TAMIA J Kin[address] Insurance:[facility] SENZDOB: Community [id number][place] [facility] [id number] Hospital [address]Vva: (330) Number: Repository [phone] () [id number] Date:5928-44-22LZ[address] [address]AA: 09/02/2018 Secondary NOT GIVENUNK Kinjal Insurance:SELF PAY [facility] Number: Effective Repository Date:2018-09-02 09/02/2018 TAMIA J [id number] Primary TAMIA J [address] Insurance:[facility] SENZDOB: Community [id number][place] [facility] [id number] Hospital [address]Qgt: (330) Number: Repository [phone] () [id number] Date:6868-59-69RK[address] [address]LO: 09/02/2018 Secondary NOT GIVENUNK Kinjal Insurance:SELF PAY [facility] Number: Effective Repository Date:2018-09-02 08/31/2018 TAMIA J [id number] Primary TAMIA J Blain [address] Insurance:[facility] SENZDOB: Community [id number][place] [facility] [id number] Hospital [address]Nmn: (330) Number: Repository [phone] () [id number] Date:9186-62-77ZG[address] [address]CA: 08/31/2018 Secondary NOT GIVENUNK Kinjal Insurance:SELF PAY [facility] Number: Effective Repository Date:2018-08-31 08/31/2018 TAMIA J [id number] Primary TAMIA J [address] Insurance:[facility] SENZDOB: Community [id number][place] [facility] [id number] Hospital [address]Nhq: (330) Number: Repository [phone] () [id number] Date:3907-01-62NO[address] [address]FG: 08/31/2018 Secondary NOT GIVENUNK Blain Insurance:SELF PAY [facility] Number: Effective Repository Date:2018-08-22 08/13/2018 TAMIA J [id number] Primary TAMIA J [address] Insurance:[facility] SENZDOB: Community [id number][place] [facility] [id number] Hospital [address]Klz: (330) Number: Repository [phone] () [id number] Date:4625-57-34MT [address] [address]FQ: 08/13/2018 Secondary NOT GIVENUNK Blain Insurance:SELF PAY [facility] Number: Effective Repository Date:2018-08-13 08/11/2018 TAMIA J [id number] Primary TAMIA J [address] [facility] [place] [id number][place] [facility] [id number] Hospital [address]Kuw: (330) Number: Repository [phone] () [id number] Date:4679-80-07CL [address] [address]LT: 08/11/2018 Secondary NOT GIVENUNK Kinjal Insurance:SELF PAY [facility] Number: Effective Repository Date:2018-08-11 08/05/2018 TAMIA J [id number] Primary TAMIA J [address] Insurance:[facility] SENZDOB: Community [id number][place] [facility] [id number] Hospital [address]Cph: (330) Number: Repository [phone] () [id number] Date:2872-03-58VK [address] [address]WZ: 08/05/2018 Secondary NOT GIVENUNK Kinjal Insurance:SELF PAY [facility] Number: Effective Repository Date:2018-08-05 08/05/2018 TAMIA J [id number] Primary TAMIA J [address] Insurance:[facility] SENZDOB: Community [id number][place] [facility] [id number] Hospital [address]Gve: (330) Number: Repository [phone] () [id number] Date:7162-25-22HB [address] [address]TJ: 08/05/2018 Secondary NOT GIVENUNK Blain Insurance:SELF PAY [facility] Number: Effective Repository Date:2018-08-05 08/05/2018 TAMIA J [id number] Primary TAMIA J [address] Insurance:[facility] SENZDOB: Community [id number], [place] [facility] [id number] Hospital [address]Zej: (330) Number: Repository [phone] () [id number] Date:8953-60-15LR [address] [address]HA: 08/05/2018 Secondary NOT GIVENUNK Blain Insurance:SELF PAY [facility] Number: Effective Repository Date:2018-08-05 07/25/2018 TAMIA J [id number] Primary TAMIA J [address] Insurance:[facility] SENZDOB: Community [id number][place] [facility] [id number] Hospital [address]Mjj: (330) Number: Repository [phone] () [id number] Date:3738-06-21UX [address] [address]JJ: 07/25/2018 Secondary NOT GIVENUNK Blain Insurance:SELF PAY [facility] Number: Effective Repository Date:2018-07-25 07/25/2018 TAMIA J [id number] Primary TAMIA J [address] Insurance:[facility] SENZDOB: Community [id number][place] [facility] [id number] Hospital [address]Vxt: (330) Number: Repository [phone] () [id number] Date:2818-68-79PC [address] [address]YW: 07/25/2018 Secondary NOT GIVENUNK Kinjal Insurance:SELF PAY [facility] Number: Effective Repository Date:2018-07-25 07/25/2018 TAMIA J [id number] Primary TAMIA J [address] Insurance:[facility] SENZDOB: [place] [id number][place] [facility] [id number] Hospital [address]Hjo: (330) Number: Repository [phone] () [id number] Date:9215-83-54QT[address] [address]DI: 07/25/2018 Secondary NOT GIVENUNK Kinjal Insurance:SELF PAY [facility] Number: Effective Repository Date:2018-07-25 07/22/2018 TAMIA J [id number] Primary TAMIA J Blain [address] Insurance:[facility] SENZDOB: [place] [id number][place] [facility] [id number] Hospital [address]Ekw: (330) Number: Repository [phone] () [id number] Date:9593-83-19GD[address] [address]CP: 07/22/2018 Secondary NOT GIVENUNK Blain Insurance:SELF PAY [facility] Number: Effective Repository Date:2018-07-22 05/17/2018 TAMIA J [id number] Primary TAMIA J [address] Insurance:[facility] SENZDOB: [place] [facility] [id number] Hospital [address]Seb: (330) Number: Repository [phone] () [id number] Date:2747-73-10NF[address] [address]VJ: 05/17/2018 Secondary NOT GIVENUNK Kinjal Insurance:SELF PAY [facility] Number: Effective Repository Date:2018-05-17 05/17/2018 TAMIA J [id number] Primary TAMIA J [address]ain [address] Insurance:[facility] SENZDOB: [place] [facility] [id number] Hospital 67[address]Loz: (330) Number: Repository [phone] () [id number] Date:6895-05-23RH[address] [address]TF: 05/17/2018 Secondary NOT GIVENUNK Blain Insurance:SELF PAY [facility] Number: Effective Repository Date:2018-05-17 05/17/2018 TAMIA J [id number] Primary TAMIA J Blain [address] Insurance:[facility] SENZDOB: [place] [facility] [id number] [id number]: (330) Number: Repository [phone] () [id number] Date:1416-66-34SI[address] [address]JL: 05/17/2018 Secondary NOT GIVENUNK Kinjal Insurance:SELF PAY [facility] Number: Effective Repository Date:2018-05-17 04/13/2018 TAMIA J [id number] Primary TAMIA J [address] Insurance:[facility] SENZDOB: [place] [facility] [id number] Hospital [address]Bil: (330) Number: Repository [phone] () [id number] Date:4519-42-71NV[address] [address]FZ: 04/13/2018 Secondary NOT GIVENUNK Kinjal Insurance:SELF PAY [facility] Number: Effective Repository Date:2018-01-19 04/04/2018 TAMIA J [id number] Primary TAMIA J Blain [address] Insurance:[facility] SENZDOB: [place] [facility] [id number] Hospital 12[address]Hhm: (330) Number: Repository [phone] () [id number] Date:8710-57-38WW [address] [address]TZ: 04/04/2018 Secondary NOT GIVENUNK Kinjal Insurance:SELF PAY [facility]: Effective Repository Date:2018-04-04 04/04/2018 TAMIA J [id number] Primary TAMIA J [address] Insurance:[facility] SENZDOB: [place] [facility] [id number] Hospital 90679Tlo: (330) Number: Repository [phone] () [id number] Date:7685-28-36LC [address] [address]KK: 04/04/2018 Secondary NOT GIVENUNK Blain Insurance:SELF PAY [facility] Number: Effective Repository Date:2018-04-04 04/04/2018 TAMIA J [id number] Primary TAMIA J Bl[address] Insurance:[facility] SENZDOB: [place] [facility] [id number] Hospital 74[address]Sma: (330) Number: Repository [phone] () [id number] Date:3939-68-53DL [address] [address]FZ: 04/04/2018 Secondary NOT GIVENUNK Kinjal Insurance:SELF PAY [facility] Number: Effective Repository Date:2018-04-04 04/04/2018 TAMIA J [id number] Primary TAMIA J Blain [address] Insurance:[facility] SENZDOB: [place] [facility] [id number] Hospital 90392Csj: (330) Number: Repository [phone] () [id number] Date:3282-15-81AE [address] [address]NL: 04/04/2018 Secondary NOT GIVENUNK Kinjal Insurance:SELF PAY [facility] Number: Effective Repository Date:2018-04-04 04/04/2018 TAMIA J [id number] Primary TAMIA J Blain [address] Insurance:[facility] SENZDOB: [place] [facility] [id number] Hospital [address]Ssf: (330) Number: Repository [phone] () [id number] Date:7313-73-92AZ [address] [address]OD: 04/04/2018 Secondary NOT GIVENUNK Blain Insurance:SELF PAY [facility] Number: Effective Repository Date:2018-04-04 02/26/2018 TAMIA J SENZDOB: Primary TAMIA J [facility] Insurance:[facility] SENZDOB: [facility] [address] MEDICAREPolicy [id number] Repository AYLIN, SARAH Number: [id number]: 330 [id number] [phone] () Date: 02/26/2018 Secondary TAMIA J [facility] Insurance:[facility] SENZDOB: [facility] MEDICAIDPolicy [id number] Repository Number: [id number] Date: 02/07/2018 Tamia J [id number] Primary Tamia J Blain [address] Insurance:[facility] SenzDOB: [facility] [place] [facility] [id number] Hospital 88[address]Htx: Number: Repository [phone] [id number] (HP) Date:4037-64-01BV [address] [address]RC: 02/07/2018 Secondary NOT GIVENUNK Blain Insurance:SELF PAY [facility] Number: Effective Repository Date:2018-02-07 02/07/2018 Tamia J [id number] Primary Tamia J Kinj[address] Insurance:[facility] SenzDOB: [facility] [place] [facility] [id number] Hospital [address]14[address]Agk: Number: Repository [phone] [id number] (HP) Date:4480-42-48VK[address] [address]WI: 02/07/2018 Secondary NOT GIVENUNK Kinjal Insurance:SELF PAY [facility] Number: Effective Repository Date:2018-02-07 02/07/2018 Tamia J [id number] Primary Tamia J [address] Insurance:[facility] SenzDOB: [place] [facility] 7783-79-51FCSSamantha [place] [id number]: Number: Repository [phone] [id number] (HP) Date:9098-34-87JT[address] [address]IF: 02/07/2018 Secondary NOT GIVENUNK Kinjal Insurance:SELF PAY [facility] Number: Effective Repository Date:2018-02-07 02/07/2018 TAMIA J [id number] Primary TAMIA J Blain [address] Insurance:[facility] SENZDOB: [place] [facility] 5912-02-99EVISamantha [place] [id number]: Number: Repository [phone] [id number] (HP) Date:4750-17-37EY[address] [address]CD: 02/07/2018 Secondary NOT GIVENUNK Blain Insurance:SELF PAY [facility] Number: Effective Repository Date:2018-02-07 02/07/2018 TAMIA J [id number] Primary TAMIA J Blain [address] Insurance:[facility] SENZDOB: [place] [facility] [id number] Hospital 59541Crz: Number: Repository [phone] [id number] (HP) Date:3771-45-36BK[address] [address]PY: 02/07/2018 Secondary NOT GIVENUNK Kinjal Insurance:SELF PAY [facility] Number: Effective Repository Date:2018-02-07 02/07/2018 TAMIA J [id number] Primary TAMIA J [address] Insurance:[facility] SENZDOB: [place] [facility] [id number] Hospital [address]Pvr: Number: Repository [phone] [id number] (HP) Date:0564-30-12AV[address] [address]SS: 02/07/2018 Secondary NOT GIVENUNK Blain Insurance:SELF PAY [facility] Number: Effective Repository Date:2018-02-07 02/03/2018 TAMIA J [id number] Primary TAMIA J [address] Insurance:[facility] SENZDOB: [place] [facility] [id number] Hospital 36[address]Tex: Number: Repository [phone] [id number] (HP) Date:3995-71-86CW [address] [address]EM: 02/03/2018 Secondary NOT GIVENUNK Kinjal Insurance:SELF PAY [facility] Number: Effective Repository Date:2018-02-03 02/03/2018 Tamia J [id number] Primary Tamia J Bl[address] Insurance:[facility] SenzDOB: [place] [facility] [id number] Hospital 18[address]Wth: Number: Repository [phone] [id number] (HP) Date:0219-40-07HL[address] [address]WN: 02/03/2018 Secondary NOT GIVENUNK Kinjal Insurance:SELF PA[place] [facility] Number: Effective Repository Date:2018-02-03 02/03/2018 Tamia J [id number] Primary Tamia J [address] Insurance:[facility] SenzDOB: [place] [facility] [id number] Hospital [address]Biv: Number: Repository [phone] [id number] (HP) Date:4667-09-53CD [address] [address]TX: 02/03/2018 Secondary NOT GIVENUNK Kinjal Insurance:SELF PAY [facility] Number: Effective Repository Date:2018-02-03 02/03/2018 Tamia J [id number] Primary Tamia J [address] Insurance:[facility] SenzDOB: [place] [facility] [id number] Hospital [address]Qwc: Number: Repository [phone] [id number] (HP) Date:9209-51-66PV [address] [address]QN: 02/03/2018 Secondary NOT GIVENUNK Blain Insurance:SELF PAY [facility] Number: Effective Repository Date:2018-02-03 02/03/2018 Tamia J [id number] Primary Tamia J Blain [address] Insurance:[facility] SenzDOB: [facility] [place] [facility] 3112-60-54SSVSamantha [place] [id number]: Number: Repository [phone] [id number] (HP) Date:4034-21-46VK [address] [address]BJ: 02/03/2018 Secondary NOT GIVENUNK Blain Insurance:SELF PAY [facility] Number: Effective Repository Date:2018-02-03 02/03/2018 Tamia J [id number] Primary Tamia J Blain [address] Insurance:[facility] SenzDOB: [facility] [place] [facility] 7845-65-66WPPSamantha [place]ille [id number]: Number: Repository [phone] [id number] (HP) Date:0378-49-65KY [address] [address]RC: 02/03/2018 Secondary NOT GIVENUNK Blain Insurance:SELF PAY [facility] Number: Effective Repository Date:2018-02-03 02/03/2018 Tamia J [id number] Primary Tamia J Kinj[address] Insurance:[facility] SenzDOB: [place] [facility] [id number] [place]ille [id number]: Number: Repository [phone] [id number] (HP) Date:6770-14-07PG [address] [address]NP: 02/03/2018 Secondary NOT GIVENUNK Blain Insurance:SELF PAY [facility] Number: Effective Repository Date:2018-02-03 02/03/2018 Tamia J [id number] Primary Tamia J Blain [address] Insurance:[facility] SenzDOB: [place] [facility] 3299-27-65MTQ Hospital 04694Dtw: Number: Repository [phone] [id number] (HP) Date:4468-57-95DH [address] [address]OX: 02/03/2018 Secondary NOT GIVENUNK Blain Insurance:SELF PAY [facility] Number: Effective Repository Date:2018-02-03 02/03/2018 Tamia J [id number] Primary Tamia J Blain [address] Insurance:[facility] SenzDOB: [place] [facility] [id number] [id number]: Number: Repository [phone] [id number] (HP) Date:[id number] [address] [address]QO: 02/03/2018 Secondary NOT GIVENUNK [place]jal Insurance:SELF PAY [facility] Number: Effective Repository Date:2018-02-03 02/03/2018 Tamia J [id number] [address] J [address] Insurance:[facility] SenzDOB[place] [facility] [id number] [address]Bmd: Number: Repository [phone] [id number] (HP) Date:[id number] [address] [address]PH: 02/03/2018 Secondary NOT GIVENUNK [place] Insurance:SELF PAY [facility] Number: Effective Repository Date:2018-02-03 01/15/2018 Tamia J [id number] Primary [address] J [address] Insurance:[facility] SenzDOB[place] [facility] [id number] [id number]: Number: Repository [phone] [id number] (HP) Date:5727-00-86HW [address] [address]NZ: 01/15/2018 Secondary NOT GIVENUNK Kinjal Insurance:SELF PAY [facility] Number: Effective Repository Date:2018-01-15 01/02/2018 Tamia J [id number] Primary Tamia J [address] Insurance:[facility] [place] [facility] [id number] [id number]: Number: Repository [phone] [id number] (HP) Date:7496-69-14GO [address] [address]GT: 01/02/2018 Secondary NOT GIVENUNK Kinjal Insurance:SELF PAY [facility] Number: Effective Repository Date:2018-01-02 01/02/2018 Tamia J [id number] Primary Tamia J [address] Insurance:[facility] SenzDOB[place] [facility] [id number] Hospital [address]Kcw: Number: Repository [phone] [id number] (HP) Date:5619-47-16OE [address] [address]EM: 01/02/2018 Secondary NOT GIVENUNK Kinjal Insurance:SELF PAY [facility] Number: Effective Repository Date:2018-01-02 01/02/2018 Tamia J [id number] Primary Tamia J [address] Insurance:[facility] SenzDOB: [place] [facility] [id number] [place]ille [id number]: Number: Repository [phone] [id number] (HP) Date:7037-77-81MO [address] [address]XK: 01/02/2018 Secondary NOT GIVENUNK Kinjal Insurance:SELF PAY [facility] Number: Effective Repository Date:2018-01-02 01/02/2018 Tamia J [id number] Primary Tamia J [address] Insurance:[facility] SenzDOB: [place] [facility] [id number] Ville [id number]: Number: Repository [phone] [id number] (HP) Date:2779-97-82XX [address] [address]FU: 01/02/2018 Secondary NOT GIVENUNK Blain Insurance:SELF PAY [facility] Number: Effective Repository Date:2018-01-02 12/23/2017 Tamia J [id number] Primary Tamia J [address] Insurance:[facility] SenzDOB: [place] [facility] 0419-11-08TWVSamuel [place] [address]Tel: Number: Repository [phone] [id number] (HP) Date:6573-68-37CX [address] [address]OV: 12/23/2017 Secondary NOT GIVENUNK Kinjal Insurance:SELF PAY [facility] Number: Effective Repository Date:2017-12-23 12/23/2017 Tamia J [id number] Primary Tamia J [address] Insurance:[facility] SenzDOB: [facility] [place] [facility] [id number] Hospital [address]Fje: Number: Repository [phone] [id number] (HP) Date:9928-08-03SG [address] [address]CO: 12/23/2017 Secondary NOT GIVENUNK Kinjal Insurance:SELF PAY [facility] Number: Effective Repository Date:2017-12-18 12/18/2017 TAMIA J SENZDOB: Primary TAMIA J [facility] Insurance:[facility] [address] MEDICAREPolicy [id number] Repository SARAH VIERA Number: [id number]: 330 [id number] [phone] (HP) Date: 12/18/2017 Secondary TAMIA J [facility] Insurance:[facility] SENDOB: [facility] MEDICAIDPolicy [id number] Repository Number: [id number] Date: 12/17/2017 Tamia J [id number] Primary Tamia J [address] Insurance:[facility] SenzDOB: [facility] sarah Viera *IN [facility] [id number] Hospital [address]Afn: Number: Repository [phone] [id number] (HP) Date:0254-53-26WN [address] [address]ML: 12/17/2017 Secondary NOT GIVENUNK Kinjal Insurance:SELF PAY [facility] Number: Effective Repository Date:2017-12-17 12/17/2017 Tamia J [id number] Primary Tamia J [address] Insurance:[facility] SenzDOB: [facility] sarah Viera *IN [facility] [id number] Hospital [address]Pgh: Number: Repository [phone] [id number] (HP) Date:5105-62-02JX [address] [address]CS: 12/17/2017 Secondary NOT GIVENUNK [place] Insurance:SELF PAY [facility] Number: Effective Repository Date:2017-12-16 12/16/2017 TAMIA J SENZDOB: Primary TAMIA J [facility] Insurance:[facility] SENZDOB: [facility] [address] MEDICAREPolicy [id number] Repository SARAH VIERA Number: [id number]: 330 [id number] [phone] (HP) Date: 12/16/2017 Secondary TAMIA J [facility] Insurance:[facility] SENZDOB: [facility] MEDICAIDPolicy [id number] Repository Number: [id number] Date: 12/11/2017 Tamia J [id number] Primary Tamia J [address] Insurance:[facility] SenzDOB: [facility] sarah Viera *IN [facility] [id number] Hospital [address]Axs: Number: Repository [phone] [id number] (HP) Date:5044-87-99XJ [address] [address]RR: 12/11/2017 Secondary NOT GIVENUNK Bl[place] Insurance:SELF PAY [facility] Number: Effective Repository Date:2017-11-18 11/24/2017 Tamia J [id number] Primary Tamia J [address] Insurance:[facility] SenzDOB: [place] [facility] [id number] Hospital [address]Xma: Number: Repository [phone] [id number] (HP) Date:3136-40-18TV [address] [address]VZ: 11/24/2017 Secondary NOT GIVENUNK Blain Insurance:SELF PAY [facility] Number: Effective Repository Date:2017-10-21 10/16/2017 Tamia J [id number] Primary Tamia J [address] Insurance:[facility] SenzDOB: [place] [facility] [id number] Ville [address]Tel: Number: Repository [phone] [id number] (HP) Date:3578-30-34DA [address] [address]UT: 10/16/2017 Secondary NOT GIVENUNK Kinjal Insurance:SELF PAY [facility] Number: Effective Repository Date:2017-10-16 10/16/2017 Tamia J [id number] Primary Tamia J [address] Insurance:[facility] SenzDOB: [place] [facility] [id number] Ville [id number]: Number: Repository [phone] [id number] (HP) Date:9532-51-24TQ [address] [address]TH: 10/16/2017 Secondary NOT GIVENUNK Kinjal Insurance:SELF PAY [facility] Number: Effective Repository Date:2017-10-16 10/16/2017 Tamia J [id number] Primary Tamia J [address] Insurance:[facility] SenzDOB: [place] [facility] [id number] Hospital [address]Xrr: Number: Repository [phone] [id number] (HP) Date:4456-09-34XD [address] [address]VO: 10/16/2017 Secondary NOT GIVENUNK Blain Insurance:SELF PAY [facility] Number: Effective Repository Date:2017-10-16
== END ==
PROVIDERS: Family Provider Family Medicine; PCP Family Medicine; Visit Provider Family Medicine
DX: J44.1 Chronic obstructive pulmonary disease with (acute) exacerbation (principal); J96.21 Acute and chronic respiratory failure with hypoxia; J96.22 Acute and chronic respiratory failure with hypercapnia; E11.649 Type 2 diabetes mellitus with hypoglycemia without coma; E03.9 Hypothyroidism, unspecified; E78.5 Hyperlipidemia, unspecified; K21.9 Gastro-esophageal reflux disease without esophagitis; G47.33 Obstructive sleep apnea (adult) (pediatric); Z79.82 Long term (current) use of aspirin; Z79.01 Long term (current) use of anticoagulants; Z86.711 Personal history of pulmonary embolism; Z86.718 Personal history of other venous thrombosis and embolism; Z87.891 Personal history of nicotine dependence
CPT/HCPCS: 81001; 87077; 87086; 87088; 87186

== ENCOUNTER 2018-09-02 14:25 | Observation (INO) | payer MEDICARE, SELFPAY ==
[2018-08-31 19:52] VITALS: BMI 39.0
[2018-09-02] VITALS (14 sets, daily range): BP systolic 101–129; BP diastolic 41–96; PULSE 57–107; RESP 14–22; TEMP 36.1–36.9; O2SAT 84–140; BMI 38.7; BMI 36.7; BMI 37.1
[2018-09-02] MEDS: Dextrose 50%-Water 25 GM/50 ML DISP.SYRIN IV (14:31)
--- NOTE | 2018-09-02 14:33 | NURSING ---
1421 STROKE ALERT CALLED [address] COLMENARES CALLED 1426 PATIENT HERE
--- NOTE | 2018-09-02 14:37 | NURSING ---
CALLED DR COLMENARES'S OFFICE TO LET HIM KNOW PATIENT IS IN CAT SCAN
--- NOTE | 2018-09-02 14:41 | CT_ITS ---
STUDY: CT BRAIN WITHOUT CONTRAST REASON FOR EXAM: Female, 63 years old. CVA. RADIATION DOSAGE (If Supplied By Facility): CTDIvol = ( 44.99 ) mGy, DLP = ( 779.24 ) mGycm TECHNIQUE: Transaxial CT imaging of the brain was performed without administration of intravenous contrast material. Individualized dose optimization techniques were used for this CT. COMPARISON: Comparison is made with prior study dated August 05, 2018. FINDINGS: Normal soft tissue structures. Normal calvarium. There is mild cerebral atrophy with widening of the extra-axial spaces and ventricular dilatation. Stable focal and separation along the posterior superior aspect of the left parietal occipital lobe. Normal basal ganglia and thalami. Normal brainstem. Normal cerebellum. There is no intracranial hemorrhage. There are no findings of an acute ischemic infarction. Abscess right calcification of the cavernous portions of the internal carotid arteries. Partial opacification of the right maxillary sinus. Mucosal thickening of the ethmoid sinuses bilaterally. CT/Brain/Head without Contrast IMPRESSION: Chronic involutional changes of the brain. Stable examination. N.B. : The above information has been verbally conveyed by Bentley Montejo MD to Maria Fernanda Moss on 09/02/2018 15:27:56 (ET). Electronically Signed: Bentley Montejo MD at 15:29 EST Tel [phone], Service support ,
--- NOTE | 2018-09-02 14:42 | CT_ITS ---
STUDY: CTA OF THE BRAIN REASON FOR EXAM: Female, 63 years old. CVA symptoms. RADIATION DOSAGE (If Supplied By Facility): CTDIvol = ( 26.69 ) mGy, DLP = ( 714.78 ) mGycm TECHNIQUE: CT angiography was performed with a multi-detector CT scanner. Data acquisition was obtained from the skull base through the vertex following intravenous administration of 100 ml of Isovue 370. MIP images were reconstructed from the axial data set. Post-processing of the angiographic images was performed, with multiplanar reformation and 3D reconstruction. Individualized dose optimization techniques were used for this CT. COMPARISON: None. FINDINGS: Normal bilateral petrous carotid arteries. Normal right cavernous carotid artery with a normal supraclinoid bifurcation. Normal left cavernous carotid artery with a normal supraclinoid bifurcation. Normal right A1 segments of the anterior cerebral artery. Normal left A1 segments of the anterior cerebral artery. Normal intact anterior communicating artery (ACOM). Normal bilateral A2 segments of the anterior cerebral arteries. Normal right M1 and M2 segments of the middle cerebral arteries, with a normal M1 bifurcation. Normal left M1 and M2 segments of the middle cerebral arteries, with a normal M1 bifurcation. Normal right posterior communicating artery (PCOM). Normal left posterior communicating artery (PCOM). Normal bilateral vertebral arteries. Normal basilar artery with a normal basilar bifurcation. The visualized bilateral superior cerebellar (SCA) arteries are normal. Normal bilateral P1, P2 and visualized P3 segments of the posterior cerebral arteries. There is no demonstrated aneurysm of the [place] of [place]. There is no demonstrated abnormality of the visualized brain. IMPRESSION: Normal [place] of [place] without a demonstrated aneurysm or hemodynamically significant stenosis. N.B. : The above information has been verbally conveyed by Bentley Montejo MD to Maria Fernanda Moss DO on 09/02/2018 14:59:45 (ET). Electronically Signed: Bentley Montejo MD at 14:58 EST Tel [phone], Service support , STUDY: CTA NECK WITH CONTRAST REASON FOR EXAM: Female, 63 years old. History of CVA. RADIATION DOSAGE (If Supplied By Facility): CTDIvol = ( 26.69 ) mGy, DLP = ( 714.78 ) mGycm TECHNIQUE: CT angiography with multi-detector data acquisition was performed from the aortic arch to the skull base following intravenous administration of 100 ml of Isovue 370 contrast. MIP images were reconstructed from the axial data set. Post-processing of the angiographic images was performed, with multiplanar reformation and 3D reconstruction. Individualized dose optimization techniques were used for this CT. COMPARISON: None. FINDINGS: AORTIC ARCH: Normal visualized aortic arch. Normal origins of the brachiocephalic, left common carotid, and left subclavian arteries. RIGHT CAROTID ARTERIES: Normal right common carotid artery (CCA). Normal right common carotid bulb. Normal origin of the right internal carotid (ICA) artery without a hemodynamically significant stenosis. Normal visualized cervical portion of the right internal carotid artery. Normal origin of the right external carotid artery (ECA). LEFT CAROTID ARTERIES: Normal left common carotid artery (CCA). Normal left common carotid bulb. Normal origin of the left internal carotid (ICA) artery without a hemodynamically significant stenosis. Normal visualized cervical portion of the left internal carotid artery. Normal origin of the left external carotid artery (ECA). VERTEBRAL ARTERIES: Normal bilateral vertebral arteries. Opacification of the right maxillary sinus. CT/CTA Neck W/WO Contrast IMPRESSION: Normal bilateral cervical carotid and vertebral arteries. N.B. : The above information has been verbally conveyed by Bentley Montejo MD to Maria Fernanda Moss DO on 09/02/2018 14:59:45 (ET). Electronically Signed: Bentley Montejo MD at 15:00 EST Tel [phone], Service support ,
--- NOTE | 2018-09-02 14:42 | CT_ITS ---
STUDY: CTA OF THE BRAIN REASON FOR EXAM: Female, 63 years old. CVA symptoms. RADIATION DOSAGE (If Supplied By Facility): CTDIvol = ( 26.69 ) mGy, DLP = ( 714.78 ) mGycm TECHNIQUE: CT angiography was performed with a multi-detector CT scanner. Data acquisition was obtained from the skull base through the vertex following intravenous administration of 100 ml of Isovue 370. MIP images were reconstructed from the axial data set. Post-processing of the angiographic images was performed, with multiplanar reformation and 3D reconstruction. Individualized dose optimization techniques were used for this CT. COMPARISON: None. FINDINGS: Normal bilateral petrous carotid arteries. Normal right cavernous carotid artery with a normal supraclinoid bifurcation. Normal left cavernous carotid artery with a normal supraclinoid bifurcation. Normal right A1 segments of the anterior cerebral artery. Normal left A1 segments of the anterior cerebral artery. Normal intact anterior communicating artery (ACOM). Normal bilateral A2 segments of the anterior cerebral arteries. Normal right M1 and M2 segments of the middle cerebral arteries, with a normal M1 bifurcation. Normal left M1 and M2 segments of the middle cerebral arteries, with a normal M1 bifurcation. Normal right posterior communicating artery (PCOM). Normal left posterior communicating artery (PCOM). Normal bilateral vertebral arteries. Normal basilar artery with a normal basilar bifurcation. The visualized bilateral superior cerebellar (SCA) arteries are normal. Normal bilateral P1, P2 and visualized P3 segments of the posterior cerebral arteries. There is no demonstrated aneurysm of the [place]. There is no demonstrated abnormality of the visualized brain. IMPRESSION: Normal [place] without a demonstrated aneurysm or hemodynamically significant stenosis. N.B. : The above information has been verbally conveyed by Bentley Montejo MD to Maria Fernanda Moss DO on 09/02/2018 14:59:45 (ET). Electronically Signed: Bentley Montejo MD at 14:58 EST Tel [phone], Service support , STUDY: CTA NECK WITH CONTRAST REASON FOR EXAM: Female, 63 years old. History of CVA. RADIATION DOSAGE (If Supplied By Facility): CTDIvol = ( 26.69 ) mGy, DLP = ( 714.78 ) mGycm TECHNIQUE: CT angiography with multi-detector data acquisition was performed from the aortic arch to the skull base following intravenous administration of 100 ml of Isovue 370 contrast. MIP images were reconstructed from the axial data set. Post-processing of the angiographic images was performed, with multiplanar reformation and 3D reconstruction. Individualized dose optimization techniques were used for this CT. COMPARISON: None. FINDINGS: AORTIC ARCH: Normal visualized aortic arch. Normal origins of the brachiocephalic, left common carotid, and left subclavian arteries. RIGHT CAROTID ARTERIES: Normal right common carotid artery (CCA). Normal right common carotid bulb. Normal origin of the right internal carotid (ICA) artery without a hemodynamically significant stenosis. Normal visualized cervical portion of the right internal carotid artery. Normal origin of the right external carotid artery (ECA). LEFT CAROTID ARTERIES: Normal left common carotid artery (CCA). Normal left common carotid bulb. Normal origin of the left internal carotid (ICA) artery without a hemodynamically significant stenosis. Normal visualized cervical portion of the left internal carotid artery. Normal origin of the left external carotid artery (ECA). VERTEBRAL ARTERIES: Normal bilateral vertebral arteries. Opacification of the right maxillary sinus. CT/CTA Head W/WO Contrast IMPRESSION: Normal bilateral cervical carotid and vertebral arteries. N.B. : The above information has been verbally conveyed by Bentley Montejo MD to Maria Fernanda Moss DO on 09/02/2018 14:59:45 (ET). Electronically Signed: Bentley Montejo MD at 15:00 EST Tel [phone], Service support ,
--- NOTE | 2018-09-02 14:44 | NURSING ---
DR COLMENARES IN ROOM
--- NOTE | 2018-09-02 14:49 | EKG12_ITS ---
Test Reason : STROKE PRECAUTION Blood Pressure : / mmHG Vent. Rate : 073 BPM Atrial Rate : 068 BPM P-R Int : 000 ms QRS Dur : 094 ms QT Int : 426 ms P-R-T Axes : 000 -19 178 degrees QTc Int : 469 ms Atrial fibrillation Left ventricular hypertrophy with repolarization abnormality Abnormal ECG Confirmed by ALETA ABRAHAM, ALVAREZ ([id number]), online editor SHYANNE TERRAZAS ([id number]) on 09/04/2018 9:13:49 AM Referred By: Cindi Sharif Confirmed By:ALVAREZ RIVER MD
--- NOTE | 2018-09-02 14:52 | ED.VISSUMM ---
- ER Visit Summary Date of Service: 09/02/18 Chief Complaint: [] Decreased level of responsiveness unconscious History of Present Illness: The patient is a 63 F [] history of diabetes some unspecified heart disease with 2 stents per the son he basically states he left her around noon she was in usual state of health he returned a short time later and found her unresponsive sitting in the chair where he left her she arrived to the emergency room around 230 on arrival of EMS her vital signs were stable her blood sugar was 145 she would not respond to them she would not move she simply would moan Is brought to the emergency department her vital signs were all unremarkable blood pressure 126/85 heart rate 100 pulse ox 93 on room air 98 on nonrebreather blood sugar about 180 and her eyes were closed she had nonpurposeful movements of the upper extremities would not move the pain to the lower extremities as we were evaluating her she suddenly opened her eyes she knew her name she denied any complaints she began moving upper extremities to commands had difficulty raising her lower extremities, NIH would be calculated at that above information, she could not explain why she was unresponsive earlier but she specifically denied head neck chest or abdominal pain This time she is on no new medications nothing was different with her health or situation today and this is happened her before for unspecified reasons Physical Examination: [] Vital signs and partial exam as above at this point time she is awake she is answering questions her airways intact her neck is supple her lungs are diminished diffusely heart tones are distant the abdomen is obese but soft nontender she has 3+ lower extremity edema to the pain she has nonpurposeful wounds of her legs will not really move them to commands she moves both upper extremities to commands and again she has no complaints airways intact Test Results: [] Emergency Department Course and Treatment: [] She underwent CT scan protocol for acute stroke per neurology the CTA head neck showed nothing acute and will continue her workup and arrange for hospice to see her for syncope She is EKG and screening labs are generally unremarkable she remains neurologically and hemodynamically stable will arrange for admission Treatment Plan: [] Disposition: [] Admit Impression: [] Syncope, history of diabetes This note was generated with [employer] dictation software. It may contain incorrect words, spelling, and punctuation that were not noted in review of the chart prior to signing ED Disposition - Plan for ED Patient: Chief Complaint: Neuro S/Sx Referrals: Bhupendra Oliveira MD [Primary Care Provider] -
--- NOTE | 2018-09-02 14:55 | RAD_ITS ---
STUDY: X-RAY CHEST REASON FOR EXAM: Female, 63 years old. Chest pain. Slurred speech. Right-sided weakness. TECHNIQUE: Single AP portable view of the chest. COMPARISON: Comparison is made with prior study dated August 13, 2018. FINDINGS: EKG electrodes are seen. Mild degree of vascular congestion. There is no demonstrated pleural abnormality. There is moderate cardiac enlargement. Normal mediastinum and tracie. Normal visualized pulmonary arteries. Normal visualized aortic arch and descending thoracic aorta. There are diffuse degenerative changes of the visualized thoracic spine. Normal visualized ribs, clavicles, and shoulders. There is no demonstrated abnormality of the visualized soft tissue structures of the upper abdomen. RAD/Chest 1 View (Portable) IMPRESSION: Cardiomegaly. Thoracic congestion and mild CHF. Electronically Signed: Bentley Montejo MD at 15:14 EST Tel [phone], Service support ,
--- NOTE | 2018-09-02 14:58 | CM.ED ---
Social Work Note Face to face with the pt's son, Kamari, upon pt's arrival. Per Kamari he last say the pt at 1230 before going grocery shopping and she was fine. When he returned she had drooping on the right side of her mouth. After that he reports that she had trouble staying awake. He then called EMS. Kamari reports that the pt lives with him and that she has a hx of diabetes, A-fib, and both of her parents had strokes. He is unsure if she is on blood thinners, and states that her PCP is Dr. Oliveira. To his knowledge she does not have advanced directives or a living will. According to chart review, there are non on file either. Kamari states that he would like his mother's purse so he can retrieve the keys for the house, and then he wants everything else put in a secured locker. Kamari has this Miner Assistant witness him only remove the keys from the purse. States that if his brother, Avery Garza, comes in he is to get nothing from her purse. Alejandro Medina RN has Kamari remove contents of the purse (as it is too large to fit in the secured belongings bag) and put only important pertinent belongings in her wallet that is then taken to the floor press operator for safe keeping. Kamari expresses understanding. Son, Avery Garza, arrives as well. Both sons enter pt's room and discuss case with neurologist, Dr. Kamara. No further needs at this time and pt to be admitted. Rosa Burrell, DRY HOUSE ATTENDANT, BAG GRADER
[2018-09-02 15:09] LABS: Absolute Lymphocyte Count 1.18 X10^3/ul (0.83-4.51); Basophil# 0.02 X10^3/uL; Basophil% 0.3 % (0-1); Eosinophil# 0.25 X10^3/uL; Eosinophils% 3.9 % (0-5); Hematocrit 41.8 % (37-47); Hemoglobin 12.8 g/dl (12.0-15.0); Lymphocyte # 1.18 X10^3/ul (4.0); Lymphocyte % 18.6 % (19-41); Mean Corp Hgb Conc 30.6 g/gl (32-36); Mean Corpuscular Hgb 28.3 pg (27.0-32.0); Mean Corpuscular Volume 92.5 fL (81-99); Mean Platelet Vol. 10.8 fl (6.2-12.0); Monocyte# 0.83 X10^3/uL; Monocyte% 13.1 % (0-10); Neutrophil # 4.03 X10^3/uL (2.7-7.7); Neutrophil % 63.8 % (47-70); Platelet Count 210 K/mm3 (150-450); RBC Distribution Width CV 15.9 % (11.6-14.6); RBC Distribution Width SD 53.7 fl (35.1-43.9); Red Blood Count 4.52 M/mm3 (4.2-5.4); White Blood Count 6.3 K/mm3 (4.4-11.0)
[2018-09-02 15:11] LABS: POSITIVE COUNT NO; POSITIVE DIFFERENTIAL NO; POSITIVE MORPHOLOGY NO
[2018-09-02 15:15] LABS: Anion Gap 5 (5-15); BUN 13 mg/dL (7-18); BUN/Creat Ratio 16.1 RATIO (10-20); Calcium,Total 8.5 mg/dL (8.5-10.1); Chloride 103 mmol/L (98-107); Creatinine, Serum 0.81 mg/dL (0.55-1.02); EST Glomerular Filtration Rate 76 mL/min (>60); Est Glom Filt Rate - Afr Amer 92 mL/min (>60); Estimated Creatinine Clearance 58.81 ml/min; Glucose 142 mg/dL (74-106); Potassium 3.1 mmol/L (3.5-5.1); Sodium Level 145 mmol/L (136-145)
[2018-09-02 15:16] LABS: Bedside Glucose 169 mg/dL (70-110)
--- NOTE | 2018-09-02 16:12 | NURSING ---
PCU OBS CHANGE IN MENTAL STATUS, SYNCOPE SEMENTI
[2018-09-02] MEDS: 0.9% Normal Saline 1,000 ML 15 ML IV (16:23)
--- NOTE | 2018-09-02 16:34 | PCM.HP.STD ---
Problem List (1) Encephalopathy acute Status: Acute (2) Bradycardia Status: Resolved (3) Toxic encephalopathy Status: Resolved (4) COPD (chronic obstructive pulmonary disease) Status: Chronic Qualifiers: (5) Chronic respiratory insufficiency Status: Chronic Comment: On home oxygen at night (6) Coronary arteriosclerosis Status: Chronic Comment: cath 05/2015 mild-moderate disease medical therapy recommended (7) Diabetes mellitus type 2 in obese Status: Chronic (8) GERD (gastroesophageal reflux disease) Status: Chronic Qualifiers: (9) Hyperlipemia Status: Chronic Qualifiers: (10) Hypertension Status: Chronic Qualifiers: (11) Hypothyroidism Status: Chronic Qualifiers: (12) PARESH (obstructive sleep apnea) Status: Chronic Comment: non-complaint with CPAP (13) Paroxysmal A-fib Status: Chronic (14) S/P PTCA (percutaneous transluminal coronary angioplasty) Status: Chronic (15) Acute hypoglycemia Status: Inactive (16) Acute metabolic encephalopathy Status: Inactive (17) Acute on chronic respiratory failure with hypoxia and hypercapnia Status: Inactive (18) Acute respiratory failure with hypoxia Status: Inactive (19) Atrial fibrillation with RVR Status: Inactive (20) COPD exacerbation Status: Inactive (21) COPD with acute exacerbation Status: Inactive (22) COPD with moderate acute bronchitis Status: Inactive (23) Hypoglycemia Status: Inactive (24) Mental status alteration Status: Inactive Qualifiers: (25) Possible pneumonia Status: Inactive (26) Hypokalemia Status: Acute (27) Metabolic alkalosis Status: Acute History of Present Illness Date of Admission: 09/02/18 Chief Complaint: brought to the ER when son found her unresponive sitting in a chair The patient is a 63 year old F past medical history of diabetes mellitus type 2, coronary artery disease, atrial fibrillation, COPD, obstructive sleep apnea (noncompliant with CPAP), obesity, thyroidism, hyperlipidemia, GERD chronic respiratory insufficiency with hypoxemia using oxygen only at night who was brought to the emergency room by squad after her son found her sitting unresponsive in a chair at home. She awoke in the ER and was able to answer questions but falls right back to sleep....speech is slurred and hard to understand. No recent hx of illness. She was normal earlier in the day. Signs of presentation to the emergency room are temperature 96.9, pulse rate 87, blood pressure 129/86, respiratory rate 22 and she was percent saturated on a 2 L cannula and once she woke up she is 99% on room air. ABC reveals a normal white blood cell count with an unremarkable differential. Hemoglobin and platelets are within normal limits. Sodium is 145 and the potassium is low at 3.1. Serum bicarb is elevated at 37 and the BUN is 13 with a creatinine of 0.81. CT scan of the brain showed no acute findings and CTA of the head and neck showed no significant areas of stenosis. Blood sugar in the emergency room was 142. Troponin was less than 0.015. He is pending but the urine was pale yellow and clear. One son indicated to the ER physician that he feels his brother may be overmedicating their mother. He has had multiple admissions this past year for acute encephalopathy secondary to to retention and medication. Patient has known obstructive sleep apnea and takes Lyrica 100 mg 3 times daily which I suspect contributes significantly to her somnolence/encephalopathy/CO2 retention. She is being admitted to the hospital for observation. Past Medical History Past Medical History (Chronic Problems): Chronic Problems Paroxysmal A-fib (Chronic) Diabetes mellitus type 2 in obese (Chronic) Coronary arteriosclerosis (Chronic) cath 05/2015 mild-moderate disease medical therapy recommended Hypothyroidism (Chronic) Hyperlipemia (Chronic) GERD (gastroesophageal reflux disease) (Chronic) Hypertension (Chronic) COPD (chronic obstructive pulmonary disease) (Chronic) Chronic respiratory insufficiency (Chronic) On home oxygen at night S/P PTCA (percutaneous transluminal coronary angioplasty) (Chronic) PARESH (obstructive sleep apnea) (Chronic) non-complaint with CPAP Allergies ciprofloxacin [From Cipro] Allergy (Verified 07/25/18 06:11) Hives latex Allergy (Verified 07/25/18 06:11) matos me niacin [From Niaspan Extended-Release] Allergy (Verified 07/25/18 06:11) Hives ondansetron [From Zofran] Allergy (Verified 07/25/18 06:11) Unknown Xanthines Allergy (Verified 07/25/18 06:11) Unknown orphenadrine citrate [From Norgesic] Adverse Reaction (Verified 07/25/18 06:11) groggy medical tape Adverse Reaction (Uncoded 07/25/18 06:11) blisters Home Medications: Ambulatory Orders Medication Instructions Recorded Atorvastatin Calcium [Lipitor] 40 mg PO DAILY 02/03/18 Duloxetine Hcl [Cymbalta] 60 mg PO DAILY 02/03/18 Insulin Lispro [Humalog KwikPen] 22 unit SQ LUNCH 02/03/18 Insulin Lispro [Humalog KwikPen] 24 unit SQ DINNER 02/03/18 Insulin Lispro [Humalog] 16 unit SQ BREAKFAST 02/03/18 Isosorbide Mononitrate [Imdur] 90 mg PO DAILY 02/03/18 Levothyroxine [Synthroid] 100 mcg PO DAILY 02/03/18 Apixaban [Eliquis] 2.5 mg PO BID 05/17/18 Ascorbic Acid [Vitamin C] 500 mg PO DAILY@0800 05/17/18 Omeprazole [Prilosec] 20 mg PO DAILY 05/17/18 Ferrous Gluconate 324 mg PO DAILY 07/22/18 Albuterol IH (ProAir) [Proair Hfa] 2 puff INHALATION Q4H PRN PRN 08/05/18 Acetaminophen [Tylenol] 1,000 mg PO Q8 PRN tablet 08/06/18 Aspirin E.C. [Ecotrin] 81 mg PO DAILY@0800 09/02/18 Buspirone HCl [Buspar] 7.5 mg PO BID 09/02/18 Docusate Sodium [Colace] 100 mg PO DAILY 09/02/18 Furosemide [Lasix] 40 mg PO BID 09/02/18 Metoprolol Tartrate [Lopressor 100 mg PO BID 09/02/18 (beta sudhakar)] Pregabalin [Lyrica] 100 mg PO TID 09/02/18 Sennosides [Senna] 8.6 mg PO BID 09/02/18 Smz/Tmp Ds [Bactrim Ds] 1 tab PO BID 09/02/18 Trueplus Glucose Chew 4 tab PO PRN PRN 09/02/18 Surgical History: angioplasty, cholecystectomy, herniorrhaphy, hysterectomy, - - tubal ligation. Psychiatric History: No pertinent psych hx RESEARCH INSTRUCTOR History: No pertinent RESEARCH INSTRUCTOR history Smoking Status: Former smoker Tobacco Use: Non-smoker Alcohol: Rare Drugs: None - *Family History Sibling History Items: COPD - in sister. Maternal History Items: No pertinent history Paternal History Items: Heart Disease, Stroke - age 62 Offspring History Items: No pertinent history - 5 children, 32 grand children and great grandchildren Review of Systems Unable to obtain accurate/complete ROS d/t: unable to stay awake to answer questions and speech is unintelligible VTE Information - Inpt Only VTE Present on Admission: No VTE Mechan Device Prophylaxis: SCD's, Knee High KELLIE Hose VTE Pharm Prophylaxis ordered?: No Reason prophylaxis not ordered:: Treatment Not Indicated - she is on Apixaban Patient Problems: Active and Suspected Problems Encephalopathy acute (Acute) Hypokalemia (Acute) Metabolic alkalosis (Acute) - Physical Exam General: Well developed, Well nourished, Lethargic, - - looks older than her given age HEENT: Atraumatic, PERRLA, EOMI, Normocephalic Oral: Dry Mucosa Neck: Supple, No JVD, Negative Carotid Bruits Lungs: Clear to auscultation, Diminished Cardiovascular: Normal S1, Normal S2, No murmurs, Irregular Rate, No rub noted, No Gallop Abdomen: Bowel Sounds Present, Soft, Non Tender, Non-Distended, - - With palpation Extremities: No clubbing, No cyanosis, No edema, Diminished Peripheral Pulses Skin: No rashes, No breakdown Neurological: Cranial nerves II-XII grossly intact, Neuro grossly intact, - - no focal deficits Psych/Mental Status: - - lethargic and difficult to arouse Vital Signs Temp Pulse Resp BP Pulse Ox 96.9 F L 87 18 108/77 99 09/02/18 14:26 09/02/18 16:17 09/02/18 16:17 09/02/18 16:17 09/02/18 16:17 Oxygen Flow Rate (L/min) 2 Oxygen Delivery Method Room Air Weight: 218 lb 11.177 oz Body Mass Index (BMI) 38.7 Finger Stick Blood Glucose 169 Laboratory Tests Past 24 Hrs 09/02/18 09/02/18 09/02/18 14:35 14:35 14:35 WBC 6.3 RBC 4.52 Hgb 12.8 Hct 41.8 MCV 92.5 MCH 28.3 MCHC 30.6 L RDW 15.9 H RDW Differential 53.7 H Plt Count 210 MPV 10.8 Immature Gran % (Auto) 0.300 Neut % (Auto) 63.8 Lymph % (Auto) 18.6 L [place] % (Auto) 13.1 H Eos % (Auto) 3.9 Baso % (Auto) 0.3 Absolute Neuts (auto) 4.0 Absolute Lymphs (auto) 1.18 Total Counted Not Reportable Sodium 145 Potassium 3.1 L Chloride 103 Carbon Dioxide 37.0 H Anion Gap 5 BUN 13 Creatinine 0.81 Estim Creat Clear Calc 58.81 Est GFR (MDRD) Af Amer 92 Est GFR (MDRD) Non-Af 76 BUN/Creatinine Ratio 16.1 Glucose 142 H Calcium 8.5 Troponin I < 0.015 B-Natriuretic Peptide 191.0 H POC Glucose 09/02/18 14:29 POC Glucose 169 H Assessment/Plan All Active Problems Encephalopathy acute (Acute) Hypokalemia (Acute) Metabolic alkalosis (Acute) Abnormal nuclear stress test (Resolved) Bradycardia (Resolved) Pneumonia (Resolved) Septic shock (Resolved) Toxic encephalopathy (Resolved) Impressions 1. encephalopathy - etiology? Has been admitted to the hospital 8 times in the past year, several times for encephalopathy. No obvious infection. she does have a metabolic alkalosis which I suspect is due to C02 retention. She has untreated sleep apnea and she takes Lyrica 100 mg TID. She has also been admitted to the hospital with hypoglycemia but BS was WNL this admission 2. PARESH - non-compliant with CPAP 3. DM II . Coronary artery disease 5. Hyperlipidemia 6. Hypertension 7. COPD 8. Former smoker 9. Hypothyroidism 10. Atrial fibrillation on Eliquis for anticoagulation ABG and urine drug screen have been ordered We will admit to PCU for observation Hold Lyrica for now until the patient is able to wake up. I would suggest tapering this medication off unless she is willing to wear CPAP anytime she is napping or sleeping. Check an ammonia level Reviewed Dr. Kamara's consult and appreciate his input. MRI in the a.m. Check a TSH N.p.o. until she is fully alert and use sliding scale insulin for blood sugar coverage Recheck lab in the a.m. These and KELLIE morrow for DVT prophylaxis. Continue apixaban for atrial fibrillation Code Visit Inpatient E&M: 50066 Init Hosp L3
--- NOTE | 2018-09-02 16:34 | NURSING ---
PT IS SEVERELY OBTUNDED AND NOT FOLLOWING DIRECTIONS. UNABLE TO COMPLETE FULL NIH DUE TO LOC.
--- NOTE | 2018-09-02 16:36 | ED.RN ---
PT'S ONE SON STATES I'M WORRIED HOW SLEEPY MY MOM HAS BEEN LATELY SINCE MY BROTHER HAS BEEN LIVING WITH HER.
--- NOTE | 2018-09-02 16:39 | CON.PCM_ITS ---
Reason for Consult Date of Consultation: 09/02/18 Reason for Consultation: Stroke team History of Present Illness: The patient is a 63 year old female with history of similar symptoms according to her sons who are present in the emergency department. She apparently was normal this morning, and at about 12 PM, his son noted lethargy. The squad was called and she presented to the emergency department. CT was obtained which I reviewed concurrently in the emergency department CT scanner, which did not show anything acute. CTA was also performed which appeared normal. The patient denies any pain. She is lethargic but arouses to voice and answers questions. She is on Eliquis for atrial fibrillation and says she took her dose this morning and has not missed any doses. Past Medical History Past Medical History (Chronic Problems): Chronic Problems Paroxysmal A-fib (Chronic) Diabetes mellitus type 2 in obese (Chronic) Coronary arteriosclerosis (Chronic) cath 05/2015 mild-moderate disease medical therapy recommended Hypothyroidism (Chronic) Hyperlipemia (Chronic) GERD (gastroesophageal reflux disease) (Chronic) Hypertension (Chronic) COPD (chronic obstructive pulmonary disease) (Chronic) Chronic respiratory insufficiency (Chronic) On home oxygen at night S/P PTCA (percutaneous transluminal coronary angioplasty) (Chronic) PARESH (obstructive sleep apnea) (Chronic) Allergies ciprofloxacin [From Cipro] Allergy (Verified 07/25/18 06:11) Hives latex Allergy (Verified 07/25/18 06:11) matos me niacin [From Niaspan Extended-Release] Allergy (Verified 07/25/18 06:11) Hives ondansetron [From Zofran] Allergy (Verified 07/25/18 06:11) Unknown Xanthines Allergy (Verified 07/25/18 06:11) Unknown orphenadrine citrate [From Norgesic] Adverse Reaction (Verified 07/25/18 06:11) groggy medical tape Adverse Reaction (Uncoded 07/25/18 06:11) blisters Home Medications: Ambulatory Orders Medication Instructions Recorded Atorvastatin Calcium [Lipitor] 40 mg PO DAILY 02/03/18 Duloxetine Hcl [Cymbalta] 60 mg PO DAILY 02/03/18 Insulin Lispro [Humalog KwikPen] 22 unit SQ LUNCH 02/03/18 Insulin Lispro [Humalog KwikPen] 24 unit SQ DINNER 02/03/18 Insulin Lispro [Humalog] 16 unit SQ BREAKFAST 02/03/18 Isosorbide Mononitrate [Imdur] 90 mg PO DAILY 02/03/18 Levothyroxine [Synthroid] 100 mcg PO DAILY 02/03/18 Apixaban [Eliquis] 2.5 mg PO BID 05/17/18 Ascorbic Acid [Vitamin C] 500 mg PO DAILY@0800 05/17/18 Omeprazole [Prilosec] 20 mg PO DAILY 05/17/18 Ferrous Gluconate 324 mg PO DAILY 07/22/18 Albuterol IH (ProAir) [Proair Hfa] 2 puff INHALATION Q4H PRN PRN 08/05/18 Acetaminophen [Tylenol] 1,000 mg PO Q8 PRN tablet 08/06/18 Aspirin E.C. [Ecotrin] 81 mg PO DAILY@0800 09/02/18 Buspirone HCl [Buspar] 7.5 mg PO BID 09/02/18 Docusate Sodium [Colace] 100 mg PO DAILY 09/02/18 Furosemide [Lasix] 40 mg PO BID 09/02/18 Metoprolol Tartrate [Lopressor 100 mg PO BID 09/02/18 (beta sudhakar)] Pregabalin [Lyrica] 100 mg PO TID 09/02/18 Sennosides [Senna] 8.6 mg PO BID 09/02/18 Smz/Tmp Ds [Bactrim Ds] 1 tab PO BID 09/02/18 Trueplus Glucose Chew 4 tab PO PRN PRN 09/02/18 Surgical History: angioplasty, cholecystectomy, herniorrhaphy, hysterectomy, - - tubal ligation. 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 Maternal History Items: No pertinent history Paternal History Items: Heart Disease, Stroke - age 62 Offspring History Items: No pertinent history - 5 children, 32 grand children and great grandchildren Review of Systems Constitutional: Denies: Chills, Fever, Weight Change HEENT: Denies: Head Aches, Sinus Congestion, Sinus Drainage Cardiovascular: Denies: Chest Pain, Palpitations Respiratory: Denies: Cough, Shortness of breath at rest, Sputum production Gastrointestinal: Denies: Abdominal Pain, Nausea, Vomiting Genitourinary: Denies: Dysuria Musculoskeletal: Denies: Joint Pain, Joint Tenderness Skin: Denies: Rash, Wounds Neurological: Denies: Numbness, Tingling, Focal weakness Psychiatric: Denies: Anxiety, Depression, Homicidal Ideations, Suicidal Ideations Hematologic/ Lymphatic: Denies: Easy Bruising, Easy Bleeding Objective: On neurologic examination she is alert lethargic but arouses to voice. Cranial nerves are intact Speech and language is intact There is no drift Strength is intact Sensation is intact - Physical Exam Vital Signs Temp Pulse Resp BP Pulse Ox 36.1 C L 87 18 108/77 99 09/02/18 14:26 09/02/18 16:17 09/02/18 16:17 09/02/18 16:17 09/02/18 16:17 Oxygen Flow Rate (L/min) 2 Oxygen Delivery Method Room Air Weight: 99.2 kg Body Mass Index (BMI) 38.7 Finger Stick Blood Glucose 169 Laboratory Tests Past 24 Hrs 09/02/18 09/02/18 09/02/18 14:35 14:35 14:35 WBC 6.3 RBC 4.52 Hgb 12.8 Hct 41.8 MCV 92.5 MCH 28.3 MCHC 30.6 L RDW 15.9 H RDW Differential 53.7 H Plt Count 210 MPV 10.8 Immature Gran % (Auto) 0.300 Neut % (Auto) 63.8 Lymph % (Auto) 18.6 L Wilbarger % (Auto) 13.1 H Eos % (Auto) 3.9 Baso % (Auto) 0.3 Absolute Neuts (auto) 4.0 Absolute Lymphs (auto) 1.18 Total Counted Not Reportable Sodium 145 Potassium 3.1 L Chloride 103 Carbon Dioxide 37.0 H Anion Gap 5 BUN 13 Creatinine 0.81 Estim Creat Clear Calc 58.81 Est GFR (MDRD) Af Amer 92 Est GFR (MDRD) Non-Af 76 BUN/Creatinine Ratio 16.1 Glucose 142 H Calcium 8.5 Troponin I < 0.015 B-Natriuretic Peptide 191.0 H POC Glucose 09/02/18 14:29 POC Glucose 169 H He was reviewed concurrently with its performance at the time that the CT was performed in the CT scanner, there is nothing acute. The CT of the brain appears normal. CTA was also reviewed which appears normal. Assessment/Plan All Active Problems Toxic encephalopathy (Acute) Bradycardia (Acute) Abnormal nuclear stress test (Resolved) Pneumonia (Resolved) Septic shock (Resolved) Impression: Encephalopathy unclear cause. This does not appear to be stroke due to nonfocal symptoms. She is not a TPA candidate additionally the patient is on Eliquis and took her dose this morning for atrial fibrillation. She should be admitted for further workup including MRI and other causes of encephalopathy.
[2018-09-02 16:40] LABS: Bacteria 0 SEEN /hpf (None Seen); Mucous, Urine 0 SEEN /hpf (<or=2+); Red Blood Cells-Urine 0 SEEN /hpf (0-5); Squamous Epithelial Cells - UA 0 SEEN /hpf (5-10)
--- NOTE | 2018-09-02 16:51 | ED.RN ---
THE PATIENT BELONGING BAG THAT WAS ON THE PATIENT BED THAT CONTAINED HER PURSE (WITH SLIP FOR RETRIEVAL OF ITEMS FROM THE SAFE), HER PANTS, UNDERWEAR AND SHIRT WERE DISCOVERED MISSING AFTER PT'S SON AND DAUGHTER LEFT.
[2018-09-02 16:56] LABS: Base Excess 12 mmol/L (-2 to +2); Bicarbonate 36.7 mmol/L (22-26); Blood Gas Specimen Type ART; O2 Delivery Device Nasal Can; PO2 138 mmHG (75-100); SITE L Radial; SO2 99 % (95-99); Time Given 1645; Total Carbon Dioxide 38 mmol/L; pCO2 58.6 mmHg (35-45)
--- NOTE | 2018-09-02 17:00 | NURSING ---
TALKED TO SECURITY ABOUT PT'S BAG BEING MISSING AND THE TALLER SON OF THE PATIENT WAS SEEN ON VIDEO WALKING OUT WITH THE BELONGING'S BAG
[2018-09-02 17:03] LABS: Color, Urine Yellow (Yellow); Glucose, Dipstick Normal (Normal); Ketone-Dipstick Negative (Negative); Leukocyte Esterase-Dipstick 500 /ul (Negative); Nitrite-Dipstick Negative (Negative); Occult Blood-Urine Negative /ul (Negative); Protein-Dipstick Negative (Negative); Specific Gravity, Urine 1.005 (1.002-1.030); Urine Bilirubin Dipstick Negative (Negative); Urine Clarity Sl. Cloudy (Clear); Urine Urobilinogen Normal (Normal)
[2018-09-02 17:41] LABS: Bedside Glucose 195 mg/dL (70-110)
[2018-09-02 18:07] LABS: White Blood Cells 10-25 SEEN /hpf (0-5)
[2018-09-02 18:08] LABS: Transitional Epithelial - Ur 0-5 SEEN /hpf (0-5)
[2018-09-02 18:36] LABS: Hemoglobin A1c 7.4 % (4.2-6.3)
[2018-09-02 18:46] LABS: Magnesium 1.8 mg/dL (1.6-2.6)
[2018-09-02] MEDS: APIXABAN 2.5 MG TABLET PO (21:14)
[2018-09-02] MEDS: Atorvastatin Calcium 40 MG Tablet PO (21:14)
[2018-09-02] MEDS: Metoprolol Tartrate 100 MG Tablet PO (21:14)
[2018-09-02] MEDS: Ipratropium/Albuterol Sulfate 3 ML AMPUL.NEB INHALATION (21:50)
--- NOTE | 2018-09-02 21:59 | NURSING ---
Patients son Kamari arrived to see pt and told pt that her purse was locked up while they were in the ED. Kamari also shows this RN a picture of his brother Avery and states that if he shows up and tries to take any of her belongings that the police should be called. Per ED notes, it appears that prior to her items being locked up they went missing from her room and it was seen on the security camera that the taller son was walking out with them. After discussing the situation with charge nurse Lakeshia Harry and housekeeper home [place] it was decided to disclose this information to son Kamari who is present. Kamari is upset and questions why Avery was allowed to take her things and states that he would like the police called so that he can press charges. Saba from [facility] notified and states she will be up to speak with Kamari.
[2018-09-02] MEDS: 0.9% NaCl Peripheral Flush Adult/Peds IV (22:32)
[2018-09-03] VITALS (8 sets, daily range): BP systolic 144–147; BP diastolic 87–95; PULSE 81–128; RESP 16–20; TEMP 36.6–37.3; O2SAT 92–94
--- NOTE | 2018-09-03 00:30 | NURSING ---
[employer] Officer Saba called and notified this RN that pt's wallet was found locked in hospital safe and was found to have $102 in it. No ID or SS card were there. This RN notified pt of these findings. Pt stated that she was missing money and that she had $200 in there when she was last conscious. This RN assured pt that the money was counted by ED staff prior to being locked up and that was the total amount when she was brought in to the ED.
[2018-09-03 00:31] LABS: Bedside Glucose 124 mg/dL (70-110)
--- NOTE | 2018-09-03 03:42 | NURSING ---
Sergeant Duarte from [employer] called stating that pt's sons were at her home and that the other wasn't supposed to be there. Neither willing to leave. Pt asked that they both be told to leave. Pt's personal cell phone was ringing from both sons Kamari and Avery calling and texting. Pt's HR became elevated frequently into 140's afib.
[2018-09-03] MEDS: dilTIAZem 25 MG/5 ML Vial 10 MG IV BOLUS (03:58)
--- NOTE | 2018-09-03 04:52 | NURSING ---
OVERHAULER BUS TRUCK notified this charge nurse and primary nurse, patient has visitor and he is yelling at patient in room. Entered room with Camilla, patient's primary nurse and talked to patient and answered questions that her wallet is in safe. Visitor in chair identifies himself as Avery her son. Patient wants to know if she can have her wallet from the safe. Explained to patient with all that has been going on tonight, do not feel it is in her best interest at this hour to get her belongings from the safe. I asked her why she felt she needed this at this time, she states she wants to give her son 5.00 to get some food. Explained to her nothing is open at this time at the hospital. He is welcome to get snacks from our kitchen on the unit. He states he does not need anything. Avery does raise his voice at this nurse stating I cannot tell patient she cannot have her belongings. I explained to him calmly that with all the circumstances with this patient tonight, I do not feel again it is in her best interest to remove her belongings from the safe. He continues to be argumentative with this nurse. Discussed with patient, she needed to rest, she has been up all night and her heart rates has gone up and she has been medicated to help bring her heart rate back down. Also explained this to her son Avery also, and again, reiterated she needed to rest. He states he will be leaving in about 5 minutes. She also verbalizes understanding she needs to rest.
--- NOTE | 2018-09-03 05:55 | MRI_ITS ---
STUDY: MRI BRAIN WITHOUT CONTRAST REASON FOR EXAM: Female, 63 years old. cva, slurred speech, expressive aphasia, blurred vision. TECHNIQUE: Standardized multiplanar fat and water weighted pulse sequences were obtained. COMPARISON: 09/02/2018 FINDINGS: Normal size of the ventricles and extra-axial spaces for the patient's age. There are a limited number of small white matter hyperintensities, distributed throughout the deep white matter tracts of the cerebral hemispheres, consistent with minimal chronic white matter ischemic changes. Normal bilateral basal ganglia. Normal thalami. There is no extra-axial fluid accumulation. Normal flow voids within the major intracranial circulation suggesting patency by spin echo criteria. Normal sella turcica, pituitary gland, infundibular stalk, optic chiasm and hypothalamus. Normal tectal plate and pineal gland. Normal midbrain, elizabeth and medulla. Normal cerebellum. Normal basal cisterns. MRI/Brain without Contrast IMPRESSION: No acute intracranial abnormality. Minimal chronic microvascular ischemic changes. Electronically Signed: Zenobia Nunez MD at 10:55 EST Tel , Service support ,
[2018-09-03 06:05] LABS: Hematocrit 39.8 % (37-47); Hemoglobin 12.3 g/dl (12.0-15.0); Mean Corp Hgb Conc 30.9 g/gl (32-36); Mean Corpuscular Hgb 28.9 pg (27.0-32.0); Mean Corpuscular Volume 93.6 fL (81-99); Platelet Count 198 K/mm3 (150-450); RBC Distribution Width CV 16.2 % (11.6-14.6); RBC Distribution Width SD 53.7 fl (35.1-43.9); Red Blood Count 4.25 M/mm3 (4.2-5.4); White Blood Count 8.3 K/mm3 (4.4-11.0)
[2018-09-03 06:12] LABS: Scan Indicated on CBC? Y/N NO
[2018-09-03 06:22] LABS: ALB/GLOB Ratio 0.8 RATIO (0.9-2.4); AST(SGOT) 12 U/L (15-37); Alanine Aminotransfer ALT/SGPT 14 U/L (13-56); Albumin, Serum 2.8 g/dL (3.2-5.0); Alkaline Phosphatase 49 U/L (45-117); Anion Gap 5 (5-15); BUN 10 mg/dL (7-18); BUN/Creat Ratio 13.3 RATIO (10-20); Calcium,Total 8.3 mg/dL (8.5-10.1); Chloride 105 mmol/L (98-107); Creatinine, Serum 0.75 mg/dL (0.55-1.02); EST Glomerular Filtration Rate 83 mL/min (>60); Est Glom Filt Rate - Afr Amer 100 mL/min (>60); Estimated Creatinine Clearance 60.72 ml/min; Globulin 3.7 g/dL (2.2-4.2); Glucose 139 mg/dL (74-106); Magnesium 1.7 mg/dL (1.6-2.6); Phosphorus 3.2 mg/dL (2.5-4.9); Potassium 3.6 mmol/L (3.5-5.1); Protein, Total 6.5 g/dL (6.4-8.2); Sodium Level 145 mmol/L (136-145)
[2018-09-03] MEDS: Levothyroxine 100 MCG Tablet PO (06:29)
[2018-09-03 06:56] LABS: Bedside Glucose 154 mg/dL (70-110)
[2018-09-03] MEDS: Ipratropium/Albuterol Sulfate 3 ML AMPUL.NEB INHALATION ×2 (07:22→10:58)
[2018-09-03] MEDS: Insulin Lispro 100 UNIT/ML INSULN.PEN SC ×2 (07:55→11:25)
[2018-09-03] MEDS: Aspirin E.C. 81 MG Tablet PO (07:55)
[2018-09-03] MEDS: Isosorbide Mononitrate 30 MG Tablet 90 MG PO (07:56)
[2018-09-03] MEDS: Furosemide 40 MG Tablet PO (07:56)
[2018-09-03] MEDS: DULoxetine Hcl 60 MG Capsule PO (07:56)
[2018-09-03] MEDS: APIXABAN 2.5 MG TABLET PO (07:56)
[2018-09-03] MEDS: Metoprolol Tartrate 100 MG Tablet PO (07:56)
[2018-09-03] MEDS: Glucerna Shake 120 ML LIQUID PO (08:00)
--- NOTE | 2018-09-03 08:00 | NURSING ---
WHILE IN ASSESSING PT AND GIVING MEDICATIONS PT ASKED IF SHE WAS ABLE TO ORDER BREAKFAST FOR SON. THIS RN GAVE PT $5 FROM VIRGILIO Champion FOR SON TO GO DOWN TO [place] TO GET SOMETHING TO EAT. AT THIS TIME SON WAS ASLEEP IN CHAIR. WHEN RN TOLD HER THIS SON WOKE UP AND WAS ANGRY. STATED THAT THE NURSES CANT TELL YOU WHAT TO DO, I DONT NEED ANY OF YOUR MONEY. YOU GUYS CANT SIT HERE AND TELL HER WHAT TO TELL ME. IM LEAVING. THIS RN EXPLAINED TO SON CONNOR THAT RN WASN'T TELLING PT WHAT TO DO SHE WAS SIMPLY GIVING SOME OF HER OWN MONEY TO HIM SO HE COULD EAT BREAKFAST RATHER THEN GET HER WALLET OUT OF THE SAFE. SOHAN RYAN NOW NOTED TO BE STANDING OUTSIDE ON SIDEWALK UNDER MOTHERS ROOM. AFTER CONNOR LEFT THIS RN WENT INTO THE ROOM TO TALK TO PT. RN APOLOGIZED FOR UPSETTING CONNOR AND THAT THAT WASN'T HER INTENTION. PT STATES THAT SHE EMBARASSED THE SON AND THAT'S WHY HE WAS ANGRY. RN ASKED PT IF SHE WANTED HER WALLET AND PT SAID NO. THIS RN TOLD PT THAT I WOULD NOT GET HER WALLET FROM THE SAFE UNTIL PT TOLD ME WITHOUT HER EITHER OF HER SONS IN THE ROOM THAT SHE WANTED IT. PT AGREES. RN EXPRESSED TO PT THAT SHE WAS OUR MAIN PRIORITY AND THAT THIS RN WILL BE THE BAD HERBERT IN SONS EYES, PT THANKED RN FOR THIS. PT GAVE RN HER RINGS, PHONE AND KEYS TO KEEP WHILE SHE WAS IN MRI. WILL GIVE BACK TO PT ONCE RETURNS TO FLOOR.
--- NOTE | 2018-09-03 10:40 | CASEMGMT ---
SW received referral due to the issues in regard to pt's sons. SW met w/pt in room, in regard to prior level of function, discharge plan, situation w/the sons. Pt states prior to admission, pt was living home w/her two sons, though she states they are not to be living there. Pt states she has been getting a UTI every week, and has also had a cough. She states that she has been on antibiotics for all of this. Pt states she gets around okay, uses a walker, has a raised toilet seat and shower chair. Pt states has oxygen through [facility] and states she uses it all the time. Pt has Passport services, Sabrina Bravo is her case management coordinator. Pt has aide services 7am-8:30am, four days per week, her aide is through [employer]. Her aide helps with bathing. Her sons do the cooking and cleaning, and pt gets transportation either through insurance or son Avery arranges transportation for pt. Pt organizes and takes her own medication, her sons do not help her with this. Pt anticipates being able to return home at discharge. SW spoke w/pt about the situation w/her sons. She states that the kindergarten teacher assistant were in her room at 3am, and she had to choose who could stay at her home and who had to leave. She said that Kamari could say but Avery had to leave. She states that Avery has no place else to go, but Kam[facility] could have gone to [facility]. Pt states she feels badly for her sons. SW asked about what was going on with her purse yesterday, she states that Avery was trying to keep her stuff safe, and Kamari thinks he is the only one who is able to keep her stuff safe however. Pt states feels safe, states she does not think her sons are stealing from her, she states she does not think anything like this has happened for at least a year. Pt feels her sons help her out a lot. Pt plans to return home, feels safe at home. BLAKE spoke w/RN, as per RN, pt had $200 in her wallet when she came in and has only $102 now. Also, pt did ask RN to lock up her rings and cell phone when she went down for a test. BLAKE called Jessamin with [facility], message left letting her know pt is here. SW also called the covering case management coordinator, let Yvon Thacker know that pt is here. SW also called [facility], message left for Yaneth Aguiar at [facility]. BLAKE will let [facility] know if pt is discharged today, and fax discharge instructions to [phone]. SW also did speak w/pt about POA, if she would be interested in completing POA forms. Pt states no. She explained she is concerned it would cause a rift with her children if she did this. SW explained that without the POA papers, if it was needed, all five of her children would need to make decisions together. Pt states understanding, she states she wants to leave it like this for now. SW let pt know if she ever wants to do POA forms, we would be able to assist. Pt states understanding. LETICIA Chao, MARKETING CAMPAIGN ANALYST
--- NOTE | 2018-09-03 11:33 | DCINST_ITS ---
- Discharge Diagnoses Current Active Problems: Current Active and Chronic Problems Encephalopathy acute (Acute) Hypokalemia (Acute) Metabolic alkalosis (Acute) You will use the following diet at home:: Calorie/Carbohydrate Controlled (specify 1200, 1400, etc) - 1800 Your food should be the consistency of: Regular Your liquids should be the consistency of: Regular/Thin Call your doctor if you observe: Fever of 101 or Higher, Inability to urinate, - - confusion Allergies/Adverse Reactions: Allergies ciprofloxacin [From Cipro] Allergy (Verified 07/25/18 06:11) Hives latex Allergy (Verified 07/25/18 06:11) matos me niacin [From Niaspan Extended-Release] Allergy (Verified 07/25/18 06:11) Hives ondansetron [From Zofran] Allergy (Verified 07/25/18 06:11) Unknown Xanthines Allergy (Verified 07/25/18 06:11) Unknown orphenadrine citrate [From Norgesic] Adverse Reaction (Verified 07/25/18 06:11) groggy medical tape Adverse Reaction (Uncoded 07/25/18 06:11) blisters Medications to take at Discharge Atorvastatin Calcium [Lipitor] 40 mg PO DAILY 02/03/18 Duloxetine Hcl [Cymbalta] 60 mg PO DAILY 02/03/18 Insulin Lispro [Humalog KwikPen] 22 unit SQ LUNCH 02/03/18 Insulin Lispro [Humalog KwikPen] 24 unit SQ DINNER 02/03/18 Insulin Lispro [Humalog] 16 unit SQ BREAKFAST 02/03/18 Isosorbide Mononitrate [Imdur] 90 mg PO DAILY 02/03/18 Levothyroxine [Synthroid] 100 mcg PO DAILY 02/03/18 Apixaban [Eliquis] 2.5 mg PO BID 05/17/18 Ascorbic Acid [Vitamin C] 500 mg PO DAILY@0800 05/17/18 Omeprazole [Prilosec] 20 mg PO DAILY 05/17/18 Ferrous Gluconate 324 mg PO DAILY 07/22/18 Albuterol IH (ProAir) [Proair Hfa] 2 puff INHALATION Q4H PRN PRN 08/05/18 Acetaminophen [Tylenol] 1,000 mg PO Q8 PRN tablet 08/06/18 Aspirin E.C. [Ecotrin] 81 mg PO DAILY@0800 09/02/18 Buspirone HCl [Buspar] 7.5 mg PO BID 09/02/18 Docusate Sodium [Colace] 100 mg PO DAILY 09/02/18 Furosemide [Lasix] 40 mg PO BID 09/02/18 Metoprolol Tartrate [Lopressor (beta sudhakar)] 100 mg PO BID 09/02/18 Sennosides [Senna] 8.6 mg PO BID 09/02/18 Trueplus Glucose Chew 4 tab PO PRN PRN 09/02/18 Primary Care Physician: Bhupendra Oliveira MD [Primary Care Provider] - Within 2 Weeks Test Results: Test results from this visit will be discussed in further detail at your follow- up appointment, if applicable. Proposed Discharge Date: 09/03/18
--- NOTE | 2018-09-03 11:33 | CASEMGMT ---
Addendum entered by Almita Woods 09/03/18 12:15: SW spoke w/Yaneth from [facility], let her know the concerns in regard to pt and her sons, as outlined in prior SW note. No further needs at this time. LETICIA Chao, STEAMER TENDER Original Note: Addendum entered by Almita Woods 09/03/18 11:42: Pt is discharged. BLAKE faxed discharge instructions and summary to Sabrina, and left her a message letting her know pt is going home today. BLAKE will speak w/HAO when Yaneth calls back. LETICIA Chao, STEAMER TENDER Original Note: SW spoke w/Sabrina from [facility], let her know that pt is here, did let her know the concerns in regard to pt's sons, and that pt may be discharged today. She asked to be called if pt is discharged, SW will do so. LETICIA Chao, STEAMER TENDER
--- NOTE | 2018-09-03 11:33 | PCM.DC.SUM ---
Discharge Date and Diagnosis - Problem List Patient Problems: Active and Suspected Problems Toxic encephalopathy (Acute) Hypokalemia (Acute) Metabolic alkalosis (Acute) Date of Admission: 09/02/18 Date of Discharge: 09/03/18 - Primary Discharge Diagnosis Active and Suspected Problems Toxic encephalopathy (Acute) Hypokalemia (Acute) Metabolic alkalosis (Acute) - Secondary Discharge Diagnosis Chronic Problems Paroxysmal A-fib (Chronic) Diabetes mellitus type 2 in obese (Chronic) Coronary arteriosclerosis (Chronic) cath 05/2015 mild-moderate disease medical therapy recommended Hypothyroidism (Chronic) Hyperlipemia (Chronic) GERD (gastroesophageal reflux disease) (Chronic) Hypertension (Chronic) COPD (chronic obstructive pulmonary disease) (Chronic) Chronic respiratory insufficiency (Chronic) On home oxygen at night S/P PTCA (percutaneous transluminal coronary angioplasty) (Chronic) PARESH (obstructive sleep apnea) (Chronic) non-complaint with CPAP Hospital Course and Treatment Imaging Results: 09/03/18 05:55 MRI Brain [Brain without Contrast] [MRI] AM (NON MEDS) Clinical Impression(s) from Imaging Studies Brain CT 09/02/18 14:41 IMPRESSION: Chronic involutional changes of the brain. Stable examination. N.B. : The above information has been verbally conveyed by Bentley Montejo MD to Maria Fernanda Moss on 09/02/2018 15:27:56 (ET). Electronically Signed: Bentley Montejo MD at 15:29 EST Tel [phone], Service support , Head CTA 09/02/18 14:42 IMPRESSION: Normal bilateral cervical carotid and vertebral arteries. N.B. : The above information has been verbally conveyed by Bentley Montejo MD to Maria Fernanda Moss DO on 09/02/2018 14:59:45 (ET). Electronically Signed: Bentley Montejo MD at 15:00 EST Tel [phone], Service support , Neck CTA 09/02/18 14:42 IMPRESSION: Normal bilateral cervical carotid and vertebral arteries. N.B. : The above information has been verbally conveyed by Bentley Montejo MD to Maria Fernanda Moss DO, on 09/02/2018 14:59:45 (ET). Electronically Signed: Bentley Montejo MD at 15:00 EST Tel [phone], Service support , Chest X-Ray 09/02/18 14:55 IMPRESSION: Cardiomegaly. Thoracic congestion and mild CHF. Electronically Signed: Bentley Montejo MD at 15:14 EST Tel [phone], Service support , Brain MRI 09/03/18 05:55 IMPRESSION: No acute intracranial abnormality. Minimal chronic microvascular ischemic changes. Electronically Signed: Zenobia Nunez MD at 10:55 EST Tel , Service support , Ricardo Kamara MD. Operations: None Procedures: None Summary of Care Provided: The patient is a 63 year old F presents after being found confused at home. Brought into the hospital underwent extensive workup, including MRI of the brain. Workup came back unremarkable. As per previous admissions, is felt to be toxic encephalopathy possibly related with the Lyrica. Lyrica was recommended discontinued last time she was here but patient is continued to take that. Once again his recommend the patient discontinued the Lyrica. Patient's mental status is back to baseline. [] Patient Problems: Active and Suspected Problems Toxic encephalopathy (Acute) Hypokalemia (Acute) Metabolic alkalosis (Acute) - Physical Exam General: Alert, Cooperative, No apparent distress HEENT: Atraumatic, Normocephalic Abdomen: Obese Psych/Mental Status: Normal Affect, Appropriate Vital Signs Temp Pulse Resp BP Pulse Ox 36.6 C 81 16 147/87 H 93 09/03/18 07:52 09/03/18 10:58 09/03/18 10:58 09/03/18 07:52 09/03/18 07:52 Oxygen Flow Rate (L/min) 2 Oxygen Delivery Method Room Air Weight: 95.2 kg Body Mass Index (BMI) 37.1 Finger Stick Blood Glucose 169 Intake and Output for Last 24 Hours 12/11/18 12/12/18 12/13/18 23:59 23:59 23:59 Intake Total 739.7 / 739.7 360 / 360 Output Total 0 / 0 Balance 739.7 / 739.7 360 / 360 Laboratory Tests Past 24 Hrs 09/02/18 09/02/18 09/02/18 14:35 14:35 14:35 WBC 6.3 RBC 4.52 Hgb 12.8 Hct 41.8 MCV 92.5 MCH 28.3 MCHC 30.6 L RDW 15.9 H RDW Differential 53.7 H Plt Count 210 MPV 10.8 Immature Gran % (Auto) 0.300 Neut % (Auto) 63.8 Lymph % (Auto) 18.6 L [place] % (Auto) 13.1 H Eos % (Auto) 3.9 Baso % (Auto) 0.3 Absolute Neuts (auto) 4.0 Absolute Lymphs (auto) 1.18 Total Counted Not Reportable Specimen Type Sample Site pH Bicarbonate Actual POC Total CO2 Base Excess O2 Saturation ABG pCO2 ABG pO2 [place] Test O2 Delivery Device Liter Flow Blood Gas Notified Whom Blood Gas Notified Time Sodium 145 Potassium 3.1 L Chloride 103 Carbon Dioxide 37.0 H Anion Gap 5 BUN 13 Creatinine 0.81 Estim Creat Clear Calc 58.81 Est GFR (MDRD) Af Amer 92 Est GFR (MDRD) Non-Af 76 BUN/Creatinine Ratio 16.1 Glucose 142 H Hemoglobin A1c Calcium 8.5 Phosphorus Magnesium Total Bilirubin AST ALT Alkaline Phosphatase Ammonia Troponin I < 0.015 B-Natriuretic Peptide 191.0 H Total Protein Albumin Globulin Albumin/Globulin Ratio TSH Urine Color Urine Clarity Urine pH Ur Specific [place] Urine Protein Urine Glucose (UA) Urine Ketones Urine Occult Blood Urine Nitrite Urine Bilirubin Urine Urobilinogen Ur Leukocyte Esterase Urine RBC Urine WBC Ur Squamous Epith Cells Ur Transition Epith Cell Urine Bacteria Urine Mucus 09/02/18 09/02/18 09/02/18 16:15 16:50 17:52 WBC RBC Hgb Hct MCV MCH MCHC RDW RDW Differential Plt Count MPV Immature Gran % (Auto) Neut % (Auto) Lymph % (Auto) [place] % (Auto) Eos % (Auto) Baso % (Auto) Absolute Neuts (auto) Absolute Lymphs (auto) Total Counted Specimen Type ART Sample Site L Radial pH 7.40 Bicarbonate Actual 36.7 H POC Total CO2 38 Base Excess 12 H O2 Saturation 99 ABG pCO2 58.6 H ABG pO2 138 H [place] Test NA O2 Delivery Device Nasal Can Liter Flow 6.0 Blood Gas Notified Whom ED Blood Gas Notified Time 1645 Sodium Potassium Chloride Carbon Dioxide Anion Gap BUN Creatinine Estim Creat Clear Calc Est GFR (MDRD) Af Amer Est GFR (MDRD) Non-Af BUN/Creatinine Ratio Glucose Hemoglobin A1c 7.4 H Calcium Phosphorus Magnesium Total Bilirubin AST ALT Alkaline Phosphatase Ammonia Troponin I B-Natriuretic Peptide Total Protein Albumin Globulin Albumin/Globulin Ratio TSH Urine Color Yellow Urine Clarity Sl. Cloudy Urine pH 7.0 Ur Specific [place] 1.005 Urine Protein Negative Urine Glucose (UA) Normal Urine Ketones Negative Urine Occult Blood Negative Urine Nitrite Negative Urine Bilirubin Negative Urine Urobilinogen Normal Ur Leukocyte Esterase 500 H Urine RBC 0 SEEN Urine WBC 10-25 SEEN Ur Squamous Epith Cells 0 SEEN Ur Transition Epith Cell 0-5 SEEN Urine Bacteria 0 SEEN Urine Mucus 0 SEEN 09/02/18 09/02/18 09/02/18 17:52 17:52 17:52 WBC RBC Hgb Hct MCV MCH MCHC RDW RDW Differential Plt Count MPV Immature Gran % (Auto) Neut % (Auto) Lymph % (Auto) [place] % (Auto) Eos % (Auto) Baso % (Auto) Absolute Neuts (auto) Absolute Lymphs (auto) Total Counted Specimen Type Sample Site pH Bicarbonate Actual POC Total CO2 Base Excess O2 Saturation ABG pCO2 ABG pO2 [place] Test O2 Delivery Device Liter Flow Blood Gas Notified Whom Blood Gas Notified Time Sodium Potassium Chloride Carbon Dioxide Anion Gap BUN Creatinine Estim Creat Clear Calc Est GFR (MDRD) Af Amer Est GFR (MDRD) Non-Af BUN/Creatinine Ratio Glucose Hemoglobin A1c Calcium Phosphorus Magnesium 1.8 Total Bilirubin AST ALT Alkaline Phosphatase Ammonia 45.0 H Troponin I < 0.015 B-Natriuretic Peptide Total Protein Albumin Globulin Albumin/Globulin Ratio TSH 0.70 Urine Color Urine Clarity Urine pH Ur Specific [place] Urine Protein Urine Glucose (UA) Urine Ketones Urine Occult Blood Urine Nitrite Urine Bilirubin Urine Urobilinogen Ur Leukocyte Esterase Urine RBC Urine WBC Ur Squamous Epith Cells Ur Transition Epith Cell Urine Bacteria Urine Mucus 09/02/18 09/03/18 09/03/18 21:20 05:40 05:40 WBC 8.3 RBC 4.25 Hgb 12.3 Hct 39.8 MCV 93.6 MCH 28.9 MCHC 30.9 L RDW 16.2 H RDW Differential 53.7 H Plt Count 198 MPV 11.0 Immature Gran % (Auto) Neut % (Auto) Lymph % (Auto) [place] % (Auto) Eos % (Auto) Baso % (Auto) Absolute Neuts (auto) Absolute Lymphs (auto) Total Counted Specimen Type Sample Site pH Bicarbonate Actual POC Total CO2 Base Excess O2 Saturation ABG pCO2 ABG pO2 [place] Test O2 Delivery Device Liter Flow Blood Gas Notified Whom Blood Gas Notified Time Sodium 145 Potassium 3.6 Chloride 105 Carbon Dioxide 35.0 H Anion Gap 5 BUN 10 Creatinine 0.75 Estim Creat Clear Calc 60.72 Est GFR (MDRD) Af Amer 100 Est GFR (MDRD) Non-Af 83 BUN/Creatinine Ratio 13.3 Glucose 139 H Hemoglobin A1c Calcium 8.3 L Phosphorus 3.2 Magnesium 1.7 Total Bilirubin 0.90 AST 12 L ALT 14 Alkaline Phosphatase 49 Ammonia Troponin I < 0.015 B-Natriuretic Peptide Total Protein 6.5 Albumin 2.8 L Globulin 3.7 Albumin/Globulin Ratio 0.8 L TSH Urine Color Urine Clarity Urine pH Ur Specific [place] Urine Protein Urine Glucose (UA) Urine Ketones Urine Occult Blood Urine Nitrite Urine Bilirubin Urine Urobilinogen Ur Leukocyte Esterase Urine RBC Urine WBC Ur Squamous Epith Cells Ur Transition Epith Cell Urine Bacteria Urine Mucus POC Glucose 09/03/18 09/03/18 09/02/18 06:49 00:24 17:33 POC Glucose 154 H 124 H 195 H 09/02/18 14:29 POC Glucose 169 H Discharge Diet: 1800 Calorie Control Diet Discharge Activity: Return to Normal Activity Call your doctor if you observe: Fever of 101 or Higher, Inability to urinate, - - confusion Home Medications: Medications to take at Discharge Atorvastatin Calcium [Lipitor] 40 mg PO DAILY 02/03/18 Duloxetine Hcl [Cymbalta] 60 mg PO DAILY 02/03/18 Insulin Lispro [Humalog KwikPen] 22 unit SQ LUNCH 02/03/18 Insulin Lispro [Humalog KwikPen] 24 unit SQ DINNER 02/03/18 Insulin Lispro [Humalog] 16 unit SQ BREAKFAST 02/03/18 Isosorbide Mononitrate [Imdur] 90 mg PO DAILY 02/03/18 Levothyroxine [Synthroid] 100 mcg PO DAILY 02/03/18 Apixaban [Eliquis] 2.5 mg PO BID 05/17/18 Ascorbic Acid [Vitamin C] 500 mg PO DAILY@0800 05/17/18 Omeprazole [Prilosec] 20 mg PO DAILY 05/17/18 Ferrous Gluconate 324 mg PO DAILY 07/22/18 Albuterol IH (ProAir) [Proair Hfa] 2 puff INHALATION Q4H PRN PRN 08/05/18 Acetaminophen [Tylenol] 1,000 mg PO Q8 PRN tablet 08/06/18 Aspirin E.C. [Ecotrin] 81 mg PO DAILY@0809/02/18 Buspirone HCl [Buspar] 7.5 mg PO BID 09/02/18 Docusate Sodium [Colace] 100 mg PO DAILY 09/02/18 Furosemide [Lasix] 40 mg PO BID 09/02/18 Metoprolol Tartrate [Lopressor (beta sudhakar)] 100 mg PO BID 09/02/18 Sennosides [Senna] 8.6 mg PO BID 09/02/18 Trueplus Glucose Chew 4 tab PO PRN PRN 09/02/18 Primary Care Physician: Bhupendra Oliveira MD [Primary Care Provider] - Within 2 Weeks Disposition: Home Minutes spent on discharge:: 32 Patient Condition:: Fair Medical Necessity - Tobacco Use Smoking Status: Former smoker Tobacco Use: Non-smoker Meaningful Use Info Meaningful Use Diagnoses (Choose all that apply): None applicable Code Visit OBSV E&M: 71624 Observation care discharge
[2018-09-03 11:36] LABS: Bedside Glucose 321 mg/dL (70-110)
--- NOTE | 2018-09-03 11:37 | DS.PCM_ITS ---
Discharge Date and Diagnosis - Problem List Patient Problems: Active and Suspected Problems Toxic encephalopathy (Acute) Hypokalemia (Acute) Metabolic alkalosis (Acute) Date of Admission: 09/02/18 Date of Discharge: 09/03/18 - Primary Discharge Diagnosis Active and Suspected Problems Toxic encephalopathy (Acute) Hypokalemia (Acute) Metabolic alkalosis (Acute) - Secondary Discharge Diagnosis Chronic Problems Paroxysmal A-fib (Chronic) Diabetes mellitus type 2 in obese (Chronic) Coronary arteriosclerosis (Chronic) cath 05/2015 mild-moderate disease medical therapy recommended Hypothyroidism (Chronic) Hyperlipemia (Chronic) GERD (gastroesophageal reflux disease) (Chronic) Hypertension (Chronic) COPD (chronic obstructive pulmonary disease) (Chronic) Chronic respiratory insufficiency (Chronic) On home oxygen at night S/P PTCA (percutaneous transluminal coronary angioplasty) (Chronic) PARESH (obstructive sleep apnea) (Chronic) non-complaint with CPAP Hospital Course and Treatment Imaging Results: 09/03/18 05:55 MRI Brain [Brain without Contrast] [MRI] AM (NON MEDS) Clinical Impression(s) from Imaging Studies Brain CT 09/02/18 14:41 IMPRESSION: Chronic involutional changes of the brain. Stable examination. N.B. : The above information has been verbally conveyed by Bentley Montejo MD to Maria Fernanda Moss on 09/02/2018 15:27:56 (ET). Electronically Signed: Bentley Montejo MD at 15:29 EST Tel [phone], Service support , Head CTA 09/02/18 14:42 IMPRESSION: Normal bilateral cervical carotid and vertebral arteries. N.B. : The above information has been verbally conveyed by Bentley Montejo MD to Maria Fernanda Moss DO on 09/02/2018 14:59:45 (ET). Electronically Signed: Bentley Montejo MD at 15:00 EST Tel [phone], Service support , Neck CTA 09/02/18 14:42 IMPRESSION: Normal bilateral cervical carotid and vertebral arteries. N.B. : The above information has been verbally conveyed by Bentley Montejo MD to Maria Fernanda Moss DO, on 09/02/2018 14:59:45 (ET). Electronically Signed: Bentley Montejo MD at 15:00 EST Tel [phone], Service support , Chest X-Ray 09/02/18 14:55 IMPRESSION: Cardiomegaly. Thoracic congestion and mild CHF. Electronically Signed: Bentley Montejo MD at 15:14 EST Tel [phone], Service support , Brain MRI 09/03/18 05:55 IMPRESSION: No acute intracranial abnormality. Minimal chronic microvascular ischemic changes. Electronically Signed: Zenobia Nunez MD at 10:55 EST Tel , Service support , Ricardo Kamara MD. Operations: None Procedures: None Summary of Care Provided: The patient is a 63 year old F presents after being found confused at home. Brought into the hospital underwent extensive workup, including MRI of the brain. Workup came back unremarkable. As per previous admissions, is felt to be toxic encephalopathy possibly related with the Lyrica. Lyrica was recommended discontinued last time she was here but patient is continued to take that. Once again his recommend the patient discontinued the Lyrica. Patient's mental status is back to baseline. [] Patient Problems: Active and Suspected Problems Toxic encephalopathy (Acute) Hypokalemia (Acute) Metabolic alkalosis (Acute) - Physical Exam General: Alert, Cooperative, No apparent distress HEENT: Atraumatic, Normocephalic Abdomen: Obese Psych/Mental Status: Normal Affect, Appropriate Vital Signs Temp Pulse Resp BP Pulse Ox 36.6 C 81 16 147/87 H 93 09/03/18 07:52 09/03/18 10:58 09/03/18 10:58 09/03/18 07:52 09/03/18 07:52 Oxygen Flow Rate (L/min) 2 Oxygen Delivery Method Room Air Weight: 95.2 kg Body Mass Index (BMI) 37.1 Finger Stick Blood Glucose 169 Intake and Output for Last 24 Hours 12/11/18 12/12/18 12/13/18 23:59 23:59 23:59 Intake Total 739.7 / 739.7 360 / 360 Output Total 0 / 0 Balance 739.7 / 739.7 360 / 360 Laboratory Tests Past 24 Hrs 09/02/18 09/02/18 09/02/18 14:35 14:35 14:35 WBC 6.3 RBC 4.52 Hgb 12.8 Hct 41.8 MCV 92.5 MCH 28.3 MCHC 30.6 L RDW 15.9 H RDW Differential 53.7 H Plt Count 210 MPV 10.8 Immature Gran % (Auto) 0.300 Neut % (Auto) 63.8 Lymph % (Auto) 18.6 L [place] % (Auto) 13.1 H Eos % (Auto) 3.9 Baso % (Auto) 0.3 Absolute Neuts (auto) 4.0 Absolute Lymphs (auto) 1.18 Total Counted Not Reportable Specimen Type Sample Site pH Bicarbonate Actual POC Total CO2 Base Excess O2 Saturation ABG pCO2 ABG pO2 [place] Test O2 Delivery Device Liter Flow Blood Gas Notified Whom Blood Gas Notified Time Sodium 145 Potassium 3.1 L Chloride 103 Carbon Dioxide 37.0 H Anion Gap 5 BUN 13 Creatinine 0.81 Estim Creat Clear Calc 58.81 Est GFR (MDRD) Af Amer 92 Est GFR (MDRD) Non-Af 76 BUN/Creatinine Ratio 16.1 Glucose 142 H Hemoglobin A1c Calcium 8.5 Phosphorus Magnesium Total Bilirubin AST ALT Alkaline Phosphatase Ammonia Troponin I < 0.015 B-Natriuretic Peptide 191.0 H Total Protein Albumin Globulin Albumin/Globulin Ratio TSH Urine Color Urine Clarity Urine pH Ur Specific [place] Urine Protein Urine Glucose (UA) Urine Ketones Urine Occult Blood Urine Nitrite Urine Bilirubin Urine Urobilinogen Ur Leukocyte Esterase Urine RBC Urine WBC Ur Squamous Epith Cells Ur Transition Epith Cell Urine Bacteria Urine Mucus 09/02/18 09/02/18 09/02/18 16:15 16:50 17:52 WBC RBC Hgb Hct MCV MCH MCHC RDW RDW Differential Plt Count MPV Immature Gran % (Auto) Neut % (Auto) Lymph % (Auto) [place] % (Auto) Eos % (Auto) Baso % (Auto) Absolute Neuts (auto) Absolute Lymphs (auto) Total Counted Specimen Type ART Sample Site L Radial pH 7.40 Bicarbonate Actual 36.7 H POC Total CO2 38 Base Excess 12 H O2 Saturation 99 ABG pCO2 58.6 H ABG pO2 138 H [place] Test NA O2 Delivery Device Nasal Can Liter Flow 6.0 Blood Gas Notified Whom ED Blood Gas Notified Time 1645 Sodium Potassium Chloride Carbon Dioxide Anion Gap BUN Creatinine Estim Creat Clear Calc Est GFR (MDRD) Af Amer Est GFR (MDRD) Non-Af BUN/Creatinine Ratio Glucose Hemoglobin A1c 7.4 H Calcium Phosphorus Magnesium Total Bilirubin AST ALT Alkaline Phosphatase Ammonia Troponin I B-Natriuretic Peptide Total Protein Albumin Globulin Albumin/Globulin Ratio TSH Urine Color Yellow Urine Clarity Sl. Cloudy Urine pH 7.0 Ur Specific [place] 1.005 Urine Protein Negative Urine Glucose (UA) Normal Urine Ketones Negative Urine Occult Blood Negative Urine Nitrite Negative Urine Bilirubin Negative Urine Urobilinogen Normal Ur Leukocyte Esterase 500 H Urine RBC 0 SEEN Urine WBC 10-25 SEEN Ur Squamous Epith Cells 0 SEEN Ur Transition Epith Cell 0-5 SEEN Urine Bacteria 0 SEEN Urine Mucus 0 SEEN 09/02/18 09/02/18 09/02/18 17:52 17:52 17:52 WBC RBC Hgb Hct MCV MCH MCHC RDW RDW Differential Plt Count MPV Immature Gran % (Auto) Neut % (Auto) Lymph % (Auto) [place] % (Auto) Eos % (Auto) Baso % (Auto) Absolute Neuts (auto) Absolute Lymphs (auto) Total Counted Specimen Type Sample Site pH Bicarbonate Actual POC Total CO2 Base Excess O2 Saturation ABG pCO2 ABG pO2 [place] Test O2 Delivery Device Liter Flow Blood Gas Notified Whom Blood Gas Notified Time Sodium Potassium Chloride Carbon Dioxide Anion Gap BUN Creatinine Estim Creat Clear Calc Est GFR (MDRD) Af Amer Est GFR (MDRD) Non-Af BUN/Creatinine Ratio Glucose Hemoglobin A1c Calcium Phosphorus Magnesium 1.8 Total Bilirubin AST ALT Alkaline Phosphatase Ammonia 45.0 H Troponin I < 0.015 B-Natriuretic Peptide Total Protein Albumin Globulin Albumin/Globulin Ratio TSH 0.70 Urine Color Urine Clarity Urine pH Ur Specific [place] Urine Protein Urine Glucose (UA) Urine Ketones Urine Occult Blood Urine Nitrite Urine Bilirubin Urine Urobilinogen Ur Leukocyte Esterase Urine RBC Urine WBC Ur Squamous Epith Cells Ur Transition Epith Cell Urine Bacteria Urine Mucus 09/02/18 09/03/18 09/03/18 21:20 05:40 05:40 WBC 8.3 RBC 4.25 Hgb 12.3 Hct 39.8 MCV 93.6 MCH 28.9 MCHC 30.9 L RDW 16.2 H RDW Differential 53.7 H Plt Count 198 MPV 11.0 Immature Gran % (Auto) Neut % (Auto) Lymph % (Auto) [place] % (Auto) Eos % (Auto) Baso % (Auto) Absolute Neuts (auto) Absolute Lymphs (auto) Total Counted Specimen Type Sample Site pH Bicarbonate Actual POC Total CO2 Base Excess O2 Saturation ABG pCO2 ABG pO2 [place] Test O2 Delivery Device Liter Flow Blood Gas Notified Whom Blood Gas Notified Time Sodium 145 Potassium 3.6 Chloride 105 Carbon Dioxide 35.0 H Anion Gap 5 BUN 10 Creatinine 0.75 Estim Creat Clear Calc 60.72 Est GFR (MDRD) Af Amer 100 Est GFR (MDRD) Non-Af 83 BUN/Creatinine Ratio 13.3 Glucose 139 H Hemoglobin A1c Calcium 8.3 L Phosphorus 3.2 Magnesium 1.7 Total Bilirubin 0.90 AST 12 L ALT 14 Alkaline Phosphatase 49 Ammonia Troponin I < 0.015 B-Natriuretic Peptide Total Protein 6.5 Albumin 2.8 L Globulin 3.7 Albumin/Globulin Ratio 0.8 L TSH Urine Color Urine Clarity Urine pH Ur Specific [place] Urine Protein Urine Glucose (UA) Urine Ketones Urine Occult Blood Urine Nitrite Urine Bilirubin Urine Urobilinogen Ur Leukocyte Esterase Urine RBC Urine WBC Ur Squamous Epith Cells Ur Transition Epith Cell Urine Bacteria Urine Mucus POC Glucose 09/03/18 09/03/18 09/02/18 06:49 00:24 17:33 POC Glucose 154 H 124 H 195 H 09/02/18 14:29 POC Glucose 169 H Discharge Diet: 1800 Calorie Control Diet Discharge Activity: Return to Normal Activity Call your doctor if you observe: Fever of 101 or Higher, Inability to urinate, - - confusion Home Medications: Medications to take at Discharge Atorvastatin Calcium [Lipitor] 40 mg PO DAILY 02/03/18 Duloxetine Hcl [Cymbalta] 60 mg PO DAILY 02/03/18 Insulin Lispro [Humalog KwikPen] 22 unit SQ LUNCH 02/03/18 Insulin Lispro [Humalog KwikPen] 24 unit SQ DINNER 02/03/18 Insulin Lispro [Humalog] 16 unit SQ BREAKFAST 02/03/18 Isosorbide Mononitrate [Imdur] 90 mg PO DAILY 02/03/18 Levothyroxine [Synthroid] 100 mcg PO DAILY 02/03/18 Apixaban [Eliquis] 2.5 mg PO BID 05/17/18 Ascorbic Acid [Vitamin C] 500 mg PO DAILY@0800 05/17/18 Omeprazole [Prilosec] 20 mg PO DAILY 05/17/18 Ferrous Gluconate 324 mg PO DAILY 07/22/18 Albuterol IH (ProAir) [Proair Hfa] 2 puff INHALATION Q4H PRN PRN 08/05/18 Acetaminophen [Tylenol] 1,000 mg PO Q8 PRN tablet 08/06/18 Aspirin E.C. [Ecotrin] 81 mg PO DAILY@0809/02/18 Buspirone HCl [Buspar] 7.5 mg PO BID 09/02/18 Docusate Sodium [Colace] 100 mg PO DAILY 09/02/18 Furosemide [Lasix] 40 mg PO BID 09/02/18 Metoprolol Tartrate [Lopressor (beta sudhakar)] 100 mg PO BID 09/02/18 Sennosides [Senna] 8.6 mg PO BID 09/02/18 Trueplus Glucose Chew 4 tab PO PRN PRN 09/02/18 Primary Care Physician: Bhupendra Oliveira MD [Primary Care Provider] - Within 2 Weeks Disposition: Home Minutes spent on discharge:: 32 Patient Condition:: Fair Medical Necessity - Tobacco Use Smoking Status: Former smoker Tobacco Use: Non-smoker Meaningful Use Info Meaningful Use Diagnoses (Choose all that apply): None applicable Code Visit OBSV E&M: 39250 Observation care discharge
--- NOTE | 2018-09-08 11:20 | CASEMGMT ---
Wesley from [employer] called and left a message for this SW inquiring about any documentation regarding pt's missing $100 from when she was in the hospital. SW called Wesley back and asked for clarification on who she is. Wesley states she works for [employer]) and they are contracted by Medicaid when there are incidents that occur, and they look into them. SW directed Wesley to medical records and let her know that the patient can request records, and gave Wesley the number to call. LETICIA Chao, REPAIR TECHNICIAN
--- OUTSIDE RECORDS SUMMARY | 2018-10-19 19:30 | XMS RPT_ITS ---
:1955 Author Organization OHIP Support Name Relationship Address Phone ADCOX, EMILIA Unavailable Unavailable + [place] [address] D Unavailable Unavailable Unavailable EFRA, MILY Unavailable Unavailable + [place] [address] ADCOX, EMILIA Unavailable Unavailable + [place] [address] D Unavailable Unavailable Unavailable EFRA, MILY Unavailable Unavailable + [place] [address] ADCOX, EMILIA Unavailable Unavailable + [place] [address] D Unavailable Unavailable Unavailable EFRA, MILY Unavailable Unavailable + [place] [address] ADCOX, EMILIA Unavailable Unavailable + [place] [address] D Unavailable Unavailable Unavailable EFRA, MILY Unavailable Unavailable + [place] [address] ADCOX, EMILIA Unavailable Unavailable + [place] [address] D Unavailable Unavailable Unavailable EFRA, MILY Unavailable Unavailable + [place] [address] ADCOX, EMILIA Unavailable Unavailable + [place] [address] D Unavailable Unavailable Unavailable EFRA, MILY Unavailable Unavailable + [place] [address] ADCOX, EMILIA Unavailable Unavailable + [place] [address] D Unavailable Unavailable Unavailable EFRA, MILY Unavailable Unavailable + [place] [address] ADCOX, EMILIA Unavailable Unavailable + [place] [address] D Unavailable Unavailable Unavailable EFRA, MILY Unavailable Unavailable + [place] [address] ADCOX, EMILIA Unavailable Unavailable + [place] [address] D Unavailable Unavailable Unavailable EFRA, MILY Unavailable Unavailable + [place] [address] ADCOX, EMILIA Unavailable Unavailable + [place] [address] D Unavailable Unavailable Unavailable EFRA, MILY Unavailable Unavailable + [place] [address] ADCOX, EMILIA Unavailable Unavailable + [place] [address] D Unavailable Unavailable Unavailable EFRA, MILY Unavailable Unavailable + [place] [address] ADCOX, EMILIA Unavailable Unavailable + [place] [address] D Unavailable Unavailable Unavailable EFRA, MILY Unavailable Unavailable + [place] [address] ADCOX, EMILIA Unavailable Unavailable + [place] [address] D Unavailable Unavailable Unavailable EFRA, MILY Unavailable Unavailable + [place] [address] ADCOX, EMILIA Unavailable Unavailable + [place] [address] D Unavailable Unavailable Unavailable EFRA, MILY Unavailable Unavailable + [place] [address] ADCOX, EMILIA Unavailable Unavailable + [place] [address] D Unavailable Unavailable Unavailable EFRA, MILY Unavailable Unavailable + [place] [address] ADCOX, EMILIA Unavailable Unavailable + [place] [address] D Unavailable Unavailable Unavailable EFRA, MILY Unavailable Unavailable + [place] [address] ADCOX, EMILIA Unavailable Unavailable + [place] [address] D Unavailable Unavailable Unavailable EFRA, MILY Unavailable Unavailable + [place] [address] ADCOX, EMILIA Unavailable Unavailable + [place] [address] D Unavailable Unavailable Unavailable EFRA, MILY Unavailable Unavailable + [place] [address] ADCOX, EMILIA Unavailable Unavailable + [place] [address] D Unavailable Unavailable Unavailable EFRA, MILY Unavailable Unavailable + [place] [address] ADCOX, EMILIA Unavailable Unavailable + [place] [address] D Unavailable Unavailable Unavailable EFRA, MILY Unavailable Unavailable + [place] [address] ADCOX, EMILIA Unavailable Unavailable + [place] [address] D Unavailable Unavailable Unavailable EFRA, MILY Unavailable Unavailable + [place] [address] ADCOX, EMILIA Unavailable Unavailable + [place] [address] D Unavailable Unavailable Unavailable EFRA, MILY Unavailable Unavailable + [place] [address] ADCOX, EMILIA Unavailable Unavailable + [place] [address] D Unavailable Unavailable Unavailable EFRA, MILY Unavailable Unavailable + [place] [address] ADCOX, EMILIA Unavailable Unavailable + [place] [address] D Unavailable Unavailable Unavailable EFRA, MILY Unavailable Unavailable + [place] [address] ADCOX, EMILIA Unavailable Unavailable + [place] [address] D Unavailable Unavailable Unavailable EFRA, MILY Unavailable Unavailable + [place] [address] ADCOX, EMILIA Unavailable Unavailable + [place] [address] D Unavailable Unavailable Unavailable EFRA, MILY Unavailable Unavailable + [place] [address] ADCOX, EMILIA Unavailable Unavailable + [place] [address] D Unavailable Unavailable Unavailable EFRA, MILY Unavailable Unavailable + [place] [address] ADCOX, EMILIA Unavailable Unavailable + [place] [address] D Unavailable Unavailable Unavailable EFRA, MILY Unavailable Unavailable + [place] [address] ADCOX, EMILIA Unavailable Unavailable + [place] [address] D Unavailable Unavailable Unavailable EFRA, MILY Unavailable Unavailable + [place] [address] ADCOX, EMILIA Unavailable Unavailable + [place] [address] D Unavailable Unavailable Unavailable EFRA, MILY Unavailable Unavailable + [place] [address] ADCOX, EMILIA Unavailable Unavailable + [place] [address] D Unavailable Unavailable Unavailable EFRA, MILY Unavailable Unavailable + [place] [address] ADCOX, EMILIA Unavailable Unavailable + [place] [address] D Unavailable Unavailable Unavailable EFRA, MILY Unavailable Unavailable + [place] [address] ADCOX, EMILIA Unavailable Unavailable + [place] [address] D Unavailable Unavailable Unavailable EFRA, MILY Unavailable Unavailable + [place] [address] ADCOX, EMILIA Unavailable Unavailable + [place] [address] D Unavailable Unavailable Unavailable EFRA, MILY Unavailable Unavailable + [place] [address] ADCOX, EMILIA Unavailable Unavailable + [place] [address] D Unavailable Unavailable Unavailable EFRA, MILY Unavailable Unavailable + [place] [address] ADCOX, EMILIA Unavailable Unavailable + [place] [address] D Unavailable Unavailable Unavailable EFRA, MILY Unavailable Unavailable + [place] [address] ADCOX, EMILIA Unavailable Unavailable + [place] [address] D Unavailable Unavailable Unavailable EFRA, MILY Unavailable Unavailable + [place] [address] ADCOX, EMILIA Unavailable Unavailable + [place] [address] D Unavailable Unavailable Unavailable EFRA, MILY Unavailable Unavailable + [place] [address] ADCOX, EMILIA Unavailable Unavailable + [place] [address] D Unavailable Unavailable Unavailable EFRA, MILY Unavailable Unavailable + [place] [address] ADCOX, EMILIA Unavailable Unavailable + [place] [address] D Unavailable Unavailable Unavailable EFRA, MILY Unavailable Unavailable + [place] [address] ADCOX, EMILIA Unavailable Unavailable + [place] [address] D Unavailable Unavailable Unavailable EFRA, MILY Unavailable Unavailable + [place] [address] ADCOX, EMILIA Unavailable Unavailable + [place] [address] D Unavailable Unavailable Unavailable EFRA, MILY Unavailable Unavailable + [place] [address] ADCOX, EMILIA Unavailable Unavailable + [place] [address] D Unavailable Unavailable Unavailable EFRA, MILY Unavailable Unavailable + [place] [address] ADCOX, EMILIA Unavailable Unavailable + [place] [address] D Unavailable Unavailable Unavailable EFRA, MILY Unavailable Unavailable + [place] [address] ADCOX, EMILIA Unavailable Unavailable + [place] [address] D Unavailable Unavailable Unavailable EFRA, MILY Unavailable Unavailable + [place] [address] ADCOX, EMILIA Unavailable Unavailable + [place] [address] D Unavailable Unavailable Unavailable EFRA, MILY Unavailable Unavailable + [place] [address] ADCOX, EMILIA Unavailable Unavailable + [place] [address] D Unavailable Unavailable Unavailable EFRA, MILY Unavailable Unavailable + [place] [address] ADCOX, EMILIA Unavailable Unavailable + [place] [address] D Unavailable Unavailable Unavailable EFRA, MILY Unavailable Unavailable + [place] [address] ADCOX, EMILIA Unavailable Unavailable + [place] [address] D Unavailable Unavailable Unavailable ERFA, MILY Unavailable Unavailable + [place] [address] ADCOX, EMILIA Unavailable Unavailable + [place] [address] D Unavailable Unavailable Unavailable EFRA, MILY Unavailable Unavailable + [place] [address] ADCOX, EMILIA Unavailable Unavailable + [place] [address] D Unavailable Unavailable Unavailable EFRA, MILY Unavailable Unavailable + [place] [address] ADCOX, EMILIA Unavailable Unavailable + [place] [address] D Unavailable Unavailable Unavailable EFRA, MLIY Unavailable Unavailable + [place] [address] ADCOX, EMILIA Unavailable Unavailable + [place] [address] D Unavailable Unavailable Unavailable EFRA, MILY Unavailable Unavailable + [place] [address] ADCOX, EMILIA Unavailable Unavailable + [place] [id number] D Unavailable Unavailable Unavailable EFRA, MILY Unavailable Unavailable + [place] [address] ADCOX, EMILIA Unavailable . + [place] [address] D Unavailable Unavailable Unavailable EFRA, MILY Unavailable . + [place] [address] ADCOX, EMILIA Unavailable . + [place] [id number] D Unavailable Unavailable Unavailable EFRA, MILY Unavailable . + [place] [id number] ADCOX, EMILIA Unavailable . + [place] [id number] D Unavailable Unavailable Unavailable EFRA, MILY Unavailable . + [place] [address] ADCOX, EMILIA Unavailable . + [place] [id number] D Unavailable Unavailable Unavailable EFRA, MILY Unavailable . + [place] [address] Care Team Providers Name Role Phone Bhupendra Oliveira Primary Care Unavailable Sementi, Anna Admitting Unavailable Sementi, Anna Referring Unavailable Zuhair Cohn Attending Unavailable Sementi, Anna Admitting Unavailable Sementi, Anna Attending Unavailable Sementi, Anna Referring Unavailable AllisonleyTituse Primary Care Unavailable Semenadrian, Anna Consulting Unavailable Sementi, Anna Admitting Unavailable Zuhair Cohn Attending Unavailable Semenadrian, Anna Referring Unavailable Titus Oliveirae Primary Care Unavailable Zuhair Cohn Consulting Unavailable Koram, Annamarie Yolanda Admitting Unavailable Juliana, Annamarie Yolanda Referring Unavailable Bhupendra Oliveira Primary Care Unavailable Yvon Hogan Consulting Unavailable Yvon Hogan Attending Unavailable Bhupinder Oliveiraophe Attending Unavailable [facility] Referring Unavailable Bursley, [facility] Primary Care Unavailable Bursley, [facility] Primary Care Unavailable Kyle, Joseph Admitting Unavailable Adriano [place] Consulting Unavailable [place], [place] Attending Unavailable Olivia, Donn Admitting Unavailable KitderikeYvon Attending Unavailable Brian, [facility] Primary Care Unavailable Syed Montanez Consulting Unavailable Yvon Hogan Consulting Unavailable Brian, [facility] Primary Care Unavailable [place], [place] Admitting Unavailable Kittodonato, Yvon Attending Unavailable [place], [place] Admitting Unavailable Kittoe, Yvon Attending Unavailable Brian, [facility] Primary Care Unavailable Yvon Hogan Consulting Unavailable [place], [place] Admitting Unavailable Vinay Bear Attending Unavailable Brian, [facility] Primary Care Unavailable Ricardo Kamara Consulting Unavailable Yvon Hogan Consulting Unavailable Jopperi, Zuhair Admitting Unavailable Jopperi, Zuhair Attending Unavailable Bursley, [facility] Primary Care Unavailable JomarcelloeriZuhair Consulting Unavailable [place], [place] Attending Unavailable [place], [place] Admitting Unavailable Allisonley, [facility] Primary Care Unavailable Ricardo Kamara Consulting Unavailable Yvon Hogan Consulting Unavailable Allisonley, [facility] Primary Care Unavailable [place], [place] Admitting Unavailable Ricardo Kamara Consulting Unavailable Yvon Hogan Attending Unavailable [place], [place] Admitting Unavailable Kitbyron, Yvon Attending Unavailable Brian, [facility] Primary Care Unavailable Yvon Hogan Consulting Unavailable [place], [place] Admitting Unavailable [place], [place] Attending Unavailable Allisonley, [facility] Primary Care Unavailable [place], [place] Consulting Unavailable [place], [place] Admitting Unavailable [place], [place] Attending Unavailable Allisonley, [facility] Primary Care Unavailable [place], [place] Consulting Unavailable Allisonley, Bhupendra Attending Unavailable Bursley, [facility] Primary Care Unavailable SHAN MIDDLETON Consulting Unavailable Olivia, Donn Admitting Unavailable Bursley, [facility] Primary Care Unavailable Syed Montanez Consulting Unavailable [place], [place] Attending Unavailable Shruthi Christie Consulting Unavailable Olivia, Donn Admitting Unavailable Yvon Hogan Attending Unavailable Brian, [facility] Primary Care Unavailable Syed Montanez Consulting Unavailable Yvon Hogan Consulting Unavailable Olivia, Donn Admitting Unavailable Kyle, Joseph Attending Unavailable [facility], Bhupendra Primary Care Unavailable [facility], Joseph Consulting Unavailable Olivia, Donn Admitting Unavailable Bursley, Bhupendra Primary Care Unavailable Olivia, Donn Consulting Unavailable Zuhair Cohn Attending Unavailable [facility], Bhupendra Primary Care Unavailable Olivia, Donn Admitting Unavailable Syed Montanez Consulting Unavailable Imamura, Jamshidichi Attending Unavailable [facility] Admitting Unavailable Miki Adriano Attending Unavailable [facility], Bhupendra Primary Care Unavailable Miki, Adriano Consulting Unavailable [place], [place] Consulting Unavailable [facility] Admitting Unavailable TreTete forde OPERATIONS AND MAINTENANCE TECHNICAN-C Attending Unavailable [facility], Bhupendra Primary Care Unavailable Miki, Adriano Consulting Unavailable [place], [place] Consulting Unavailable [facility] Admitting Unavailable [place], [place] Attending Unavailable [facility], [facility] Primary Care Unavailable Miki, Adriano Consulting Unavailable [place], [place] Consulting Unavailable [facility] Admitting Unavailable MikiAdriano olsen Attending Unavailable [facility], Bhupendra Primary Care Unavailable Miki, Adriano Consulting Unavailable [place], [place] Consulting Unavailable [facility] Admitting Unavailable Tete [place] OPERATIONS AND MAINTENANCE TECHNICAN-C Attending Unavailable [facility], Bhupendra Primary Care Unavailable Miki, Adriano Consulting Unavailable [place], [place] Consulting Unavailable [facility] Admitting Unavailable [facility], Bhupendra Primary Care Unavailable Miki, Adriano Consulting Unavailable [place], [place] Attending Unavailable [place], [place] Consulting Unavailable [facility] Admitting Unavailable MikiAdriano olsen Attending Unavailable [facility], [facility] Primary Care Unavailable Miki, Adriano Consulting Unavailable [place], [place] Consulting Unavailable [facility] Admitting Unavailable Tete [place] OPERATIONS AND MAINTENANCE TECHNICAN-C Attending Unavailable [facility], Bhupendra Primary Care Unavailable Miki, Adriano Consulting Unavailable [place], [place] Consulting Unavailable [facility] Admitting Unavailable [facility] Attending Unavailable [facility], Bhupendra Primary Care Unavailable Miki, Adriano Consulting Unavailable [facility] Consulting Unavailable Bao Marvin Attending Unavailable [facility], Bhupendra Primary Care Unavailable Roger Laguna Attending Unavailable Bart Blas Attending Unavailable Donal [...] Yoichi Admitting Unavailable Imamura, Yoichi Attending Unavailable Donla Albright Attending Unavailable [place], Donal Referring Unavailable Bursley, Bhupendra Primary Care Unavailable Shaker, Luz Consulting Unavailable Donal Albright Attending Unavailable Andrew, Donal Referring Unavailable Bursley, Bhupendra Primary Care Unavailable Bursley, Bhupendra Attending Unavailable Bursley, Bhupendra Referring Unavailable Bursley, Bhupendra Primary Care Unavailable [employer] Attending Unavailable [employer] Referring Unavailable Bursley, Bhupendra Primary Care Unavailable Kyle, Joseph Admitting Unavailable [place], [place] Attending Unavailable Bursley, Bhupendra Primary Care Unavailable [place], [place] Consulting Unavailable Koram, Annamarie Yolanda Admitting Unavailable Koram, [...] Yolanda Referring Unavailable Yvon Hogan Attending Unavailable Kyle, Joseph Admitting Unavailable Kyle, Joseph Attending Unavailable Bursley, Bhupendra Primary Care Unavailable Kyle, Joseph Consulting Unavailable Bursley, Bhupendra Primary Care Unavailable Kyle, Joseph Admitting Unavailable [place], [place] Attending Unavailable Bursley, Bhupendra Attending Unavailable Bursley, Bhupendra Primary Care Unavailable Bursley, Bhupendra Attending Unavailable Bursley, Bhupendra Referring Unavailable Bursley, Bhupendra Primary Care Unavailable Bursley, Bhupendra Primary Care Unavailable Brooks, Eleazar Attending Unavailable Bursley, Bhupendra Attending Unavailable Bursley, Bhupendra Referring Unavailable Bursley, Bhupendra Primary Care Unavailable Jopperi, Zuhair Admitting Unavailable Jopperi, Zuhair Attending Unavailable Bursley, Bhupendra Primary Care Unavailable Jopperi, Zuhair Consulting Unavailable [place], [place] Admitting Unavailable Jopperi, Zuhair Attending Unavailable Bursley, Bhupendra Primary Care Unavailable [place], [place] Consulting Unavailable Bursley, Bhupendra Primary Care Unavailable Jopperi, Zuahir Attending Unavailable Jopperi, Zuhair Admitting Unavailable Jopperi, Zuhair Admitting Unavailable Jopperi, Zuhair Attending Unavailable Bursley, Bhupendra Primary Care Unavailable Jopperi, Zuhair Consulting Unavailable Bursley, Bhupendra Primary Care Unavailable Jopperi, Zuhair Admitting Unavailable Yared Fernández Attending Unavailable Bursley, Bhupendra Primary Care Unavailable Bao Quintana Attending Unavailable NANDA OLIVEIRA) Attending Unavailable PAINTSIL, AMA N Referring Unavailable NANDA OLIVEIRA) Referring Unavailable KOREY HANAN Attending Unavailable NANDA OLIVEIRA) Attending Unavailable NANDA OLIVEIRA) Referring Unavailable CHRIS OCONNELL (EXPERIMENTAL ROCKET SLED MECHANIC) Attending Unavailable CHRIS OCONNELL (EXPERIMENTAL ROCKET SLED MECHANIC) Attending Unavailable CHRIS OCONNELL (EXPERIMENTAL ROCKET SLED MECHANIC) Referring Unavailable NANDA OLIVEIRA) Referring Unavailable TOMASAMERJEFFERSON Sewell Admitting Unavailable VILLAMEREJEFFERSON Attending Unavailable VILLAMERE, JEFFERSON Referring Unavailable VILLAMERE, JEFFERSON Admitting Unavailable TOMASAMEREJEFFERSON Attending Unavailable JEFFERSON CONNOLLY Referring Unavailable VILLAMERE, JEFFERSON Admitting Unavailable TOMASAMERE, JEFFERSON Attending Unavailable VILLAMERE, JEFFERSON Referring Unavailable VILLAMERE, JEFFERSON Admitting Unavailable VILLAMERE, JEFFERSON Attending Unavailable VILLAMERE, JEFFERSON Referring Unavailable VILLAMERE, JEFFERSON Admitting Unavailable TOMASAMEREJEFFERSON Attending Unavailable TOMASAMEREJEFFERSON Referring Unavailable VILLAMERE, JEFFERSON Admitting Unavailable VILLAMERE, JEFFERSON Attending Unavailable VILLAMERE, JEFFERSON Referring Unavailable VILLAMERE, JEFFERSON Admitting Unavailable VILLAMERE, JEFFERSON Attending Unavailable VILLAMERE, JEFFERSON Referring Unavailable VILLAMERE, JEFFERSON Referring Unavailable KATIE MCKEON (EXPERIMENTAL ROCKET SLED MECHANIC) Attending Unavailable NANDA OLIVEIRA) Referring Unavailable NANDA OLIVEIRA) Attending Unavailable NANDA OLIVEIRA) Referring Unavailable LIZETTE ACOSTA) Attending Unavailable NANDA OLIVEIRA) Referring Unavailable VILLAMERE, JEFFERSON Referring Unavailable YOUSEF, KRZYSZTOF Attending Unavailable VILLAMERE, JEFFERSON Referring Unavailable VILLAMERE, JEFFERSON Referring Unavailable VILLAMERE, JEFFERSON Referring Unavailable PODLOGAR, KATIE (EXPERIMENTAL ROCKET SLED MECHANIC) Attending Unavailable VILLAMERE, JEFFERSON Admitting Unavailable VILLAMERE, JEFFERSON Attending Unavailable PODLOGAR, KATIE (EXPERIMENTAL ROCKET SLED MECHANIC) Attending Unavailable BURSARCELIA, NANDA RODRIGUEZ) Attending Unavailable DONAL ALBRIGHT Attending Unavailable NANDA OLIVEIRA) Referring Unavailable VILLAMERE, JEFFERSON Attending Unavailable VILLAMERE, JEFFERSON Referring Unavailable MARKSARAH (EXPERIMENTAL ROCKET SLED MECHANIC) Attending Unavailable DAVE, LIZETTE (PA) Referring Unavailable DAVE, LIZETTE (PA) Referring Unavailable DAVE, LIZETTE (PA) Referring Unavailable DAVE, LIZETTE (PA) Referring Unavailable DAVE, LIZETTE (PA) Attending Unavailable DAVE, LIZETTE (PA) Referring Unavailable DAVE, LIZETTE (PA) Referring Unavailable PODLOGAR, KATIE ([facility]) Attending Unavailable BURSLEYNANDA) Referring Unavailable PODLOGAR, KATIE (EXPERIMENTAL ROCKET SLED MECHANIC) Referring Unavailable DAVE, LIZETTE (PA) Attending Unavailable DAVE, LIZETTE (PA) Referring Unavailable MOULSHAN Attending Unavailable NANDA OLIVEIRA) Referring Unavailable BURSLEYNANDA) Attending Unavailable BURSLEYNANDA) Referring Unavailable BURSNANDA PANIAGUA) Attending Unavailable NANDA OLIVEIRA) Referring Unavailable RUTCHRIS GUADALUPE ([facility]) Attending Unavailable NANDA OLIVEIRA) Attending Unavailable ALLISONLEYNANDA) Referring Unavailable BURSNANDA PANIAGUA) Attending Unavailable DEYSI BA ([facility]) Referring Unavailable NANDA OLIVEIRA) Referring Unavailable NANDA OLIVEIRA) Referring Unavailable GAYATHRI JACOME Attending Unavailable NANDA OLIVEIRA) Referring Unavailable GAYATHRI JACOME Referring Unavailable NADNA OLIVEIRA) Referring Unavailable DONAL ALBRIGHT Attending Unavailable NANDA OLIVEIRA) Referring Unavailable DONAL ALBRIGHT Attending Unavailable ANDREW DONAL E Referring Unavailable DONAL ALBRIGHT Attending Unavailable NANDA OLIVEIRA Referring Unavailable NANDA OLIVEIRA Primary Care Unavailable DONAL ALBRIGHT Attending Unavailable NANDA OLIVEIRA Primary Care Unavailable DONAL ALBRIGHT Referring Unavailable DONAL ALBRIGHT Attending Unavailable NANDA OLIVEIRA Primary Care Unavailable PROBLEMS PROBLEMS DATE TYPE CONDITION / CODE ATTENDING STATUS SOURCE Active Chronic systolic NA Active [place] [facility] (congestive) [facility] Main failure / [place] I50.22(ICD-10) Repository Active Pneumonia, unspecified NA Active [place] [facility] organism / Clinic Main J18.9(ICD-10) [place] Repository Active Iron deficiency / NA Active [place] 7 E61.1(ICD-10) Clinic Main [place] Repository Active Vitamin D deficiency, NA Active [place] [facility] unspecified / Clinic Main E55.9(ICD-10) [place] Repository Active Acute kidney failure, NA Active [place] 9 unspecified / Clinic Main N17.9(ICD-10) [place] Repository Unknown E11.649 - Type 2 Brian, Active [place] 8 diabetes mellitus with [facility] hypoglycemia without Hospital coma / E11.649(ICD-10) Repository Unknown J44.1 - Chronic Brian, Active [place] 8 obstructive pulmonary [facility] disease with (acute) Hospital exacerbation / Repository J44.1(ICD-10) Unknown J96.22 - Acute and Brian, Active [place] 8 chronic respiratory [facility] failure with Hospital hypercapnia / Repository J96.22(ICD-10) Unknown E03.9 - [place], Active [place] 8 Hypothyroidism, [facility] unspecified / Hospital E03.9(ICD-10) Repository Unknown Z00.00 - Encounter for Brian, Active [place] 8 general adult medical [facility] examination without Hospital abnormal findings / Repository Z00.00(ICD-10) Active Hypothyroidism, NA Active [place] 6 unspecified / Clinic Main E03.9(ICD-10) [place] Repository Unknown G47.33 - Obstructive Brian, Active [place] 8 sleep apnea (adult) [facility] (pediatric) / Hospital G47.33(ICD-10) Repository Active Dyspnea, unspecified / NA [place] [address] R06.00(ICD-10) Clinic Main [place] Repository Active Other abnormalities of NA [place] [address] breathing / Clinic Main R06.89(ICD-10) [place] Repository Active Hemoptysis / NA [place] [address] R04.2(ICD-10) Clinic Main [place] Repository Active Hypokalemia / NA [place] [address] E87.6(ICD-10) Clinic Main [place] Repository Unknown I25.119 - Bao Marvin [place] [address] 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 / I25.119(ICD-10) Active Abnormal result of DONAL ALBRIGHT [place] [address] other cardiovascular E Clinic Other function study / [place] R94.39(ICD-10) Repository Unknown R94.31 - Abnormal WanBart weinstein [place] [address] electrocardiogram Community [ECG] [EKG] / Hospital R94.31(ICD-10) Repository Active Encounter for DONAL ALBRIGHT [place] [address] preprocedural E Clinic Other cardiovascular [place] examination / Repository Z01.810(ICD-10) Active Atherosclerotic heart DONAL ALBRIGHT [place] [address]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 [place] E Clinic Other coronary artery [place] without angina Repository pectoris / I25.10(ICD-10) Active Essential (primary) DONAL ALBRIGHT [facility] 8 hypertension / E Clinic Other I10(ICD-10) [place] Repository Admitting Unknown / UNK(Unknown) DONAL ALBRIGHT Active [place] [address] diagnosis Health System Repository Active Encounter for other JEFFERSON CONNOLLY [place] [address] preprocedural Clinic Main examination / [place] Z01.818(ICD-10) Repository Active Gastroparesis / JEFFERSON CONNOLLY [place] [address] K31.84(ICD-10) Clinic Main [place] Repository Active Type 2 diabetes NA [place] [address] mellitus with diabetic Clinic Main neuropathy, [place] unspecified / Repository E11.40(ICD-10) Active shelter (current) NA Active [place] 8 use of insulin / [facility] Main Z79.4(ICD-10) [place] Repository Active Unspecified abnormal NA Active [place] 8 findings in urine / [facility] Main R82.90(ICD-10) [place] Repository Active Unknown / UNK(Unknown) BRIAN, Active [place] 8 NANDA Champion [facility] () [place] Repository PROCEDURES PROCEDURES No Procedure Records FoundRESULTS RESULTS POTASSIUM Collected: 10/05/2018 Status: F Source: RELIANCE 2:37 PM [facility] REPOSITORY TYPE CODE TESTS RESULT OUT OF REFERENCE UNITS RANGE LAB K 3.7-5.1 mmol/L Low Potassium 3.0 NT PRO BNP Collected: 10/05/2018 Status: F Source: RELIANCE 2:36 PM [facility] REPOSITORY TYPE CODE TESTS RESULT OUT OF REFERENCE UNITS RANGE LAB PBNP <125 pg/mL High PRO B Natr 2453 Peptide Performed By: #### NTBNP, TSH #### [facility] [address] [place] [id number] TSH Collected: 10/05/2018 Status: F Source: RELIANCE 2:36 PM [facility] REPOSITORY TYPE CODE TESTS RESULT OUT OF RANGE REFERENCE UNITS LAB TSH 0.400-5.500 uU/mL TSH 3.090 Performed By: #### NTBNP, TSH #### [facility] [address] [place] [address] PROGRESS Observed: 10/05/2018 Status: COMPLETED Source: RELIANCE 1:51 PM [facility] REPOSITORY HNO ID: [id number] Author: Gayathri Jacome Service: (none) Author Type: Physician Type: Progress Notes Filed: 10/06/2018 7:55 AM Note Text: Respiratory [place], 10/05/2018: INTERVAL HISTORY: Admitted twice in 08/2018 [...] ? ? 4.42 ?99 Left Heart Cath, [facility], 12/23/2017: Right dominant. LVEF 75%. Normal wall motion. Normal systolic function. Normal LVEDP (10). LMCA: 20% stenosis. LAD: 40% stenosis mid LAD, 50% stenosis distal LAD. LCx: Occluded at its midpoint. RCA: Mild luminal irregularities less than 30%. RT PDA: Mild luminal irregularities less than 30%. Bao Marvin MD [facility] 09/09/2018 09/10/2018 BNP 124.8 (0-100) pH 7.38 pCO2 54.7 pO2 77 HCO3 32.6 FiO2 30% CXR report, [facility], 09/09/2018: Lungs are not fully expanded. There [...] acceptance of my answers. Gayathri Jacome MD, [facility] Respiratory [facility] Specialty and Ambulatory Surgery [address] [address] P: [phone] F: [phone] [email or web address] ADDENDUM, 10/06/2018: I informed the patient of the TSH and NT pro BNP results from yesterday in the MyChart message below: Mrs. Panda, Component ?Latest Ref [...] received it. Thank you. Gayathri Jacome MD, [facility] Respiratory [place] ? [place] [facility] [address] ?[address] CNOV Observed: 10/05/2018 Status: COMPLETED Source: RELIANCE 1:00 PM [facility] REPOSITORY Office Visit (PULMWS) TAMIA PANDA ([id number]) 1955 F Date Time Provider Department 10/05/18 [...] GI: occasional heartburn. notes dysphagia. denies diarrhea. 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 denies hesitancy. denies nocturia. Menses: post menopausal Musculoskeletal: I ache all over Neuro: notes headache, notes focal weakness. notes tremor. Skin: notes itching/rash in abdominal folds, treated as yeast by PCP. Otherwise negative. Gayathri Jacome MD 10/06/2018 7:55 AM Addendum [facility] [place], 10/05/2018: INTERVAL HISTORY: Admitted twice in 08/2018 [...] ? ? 4.42 ?99 Left Heart Cath, [facility], 12/23/2017: Right dominant. LVEF 75%. Normal wall motion. Normal systolic function. Normal LVEDP (10). LMCA: 20% stenosis. LAD: 40% stenosis mid LAD, 50% stenosis distal LAD. LCx: Occluded at its midpoint. RCA: Mild luminal irregularities less than 30%. RT PDA: Mild luminal irregularities less than 30%. Bao Marvin MD [facility] 09/09/2018 09/10/2018 BNP 124.8 (0-100) pH 7.38 pCO2 54.7 pO2 77 HCO3 32.6 FiO2 30% CXR report, [facility], 09/09/2018: Lungs are not fully expanded. There [...] acceptance of my answers. Gayathri Jacome MD, [facility] Surgery [address] [address] P: [phone] F: [phone] [email or web address] ADDENDUM, 10/06/2018: I informed the patient of the TSH and NT pro BNP results from yesterday in the [employer] message below: Mrs. Panda, Component ?Latest Ref [...] received it. Thank you. Gayathri Jacome MD, [facility] Respiratory [place] ? [facility] Surgery [address] ?[address] Gayathri Jacome MD 10/05/2018 2:13 PM Signed [...] to follow these results. Gayathri Jacome MD, [facility] Respiratory [place] [facility] [address] [place] [address] P: [phone] F: [phone] [email or web address] Referring Provider: NANDA OLIVEIRA) [[id number]] Allergies As of Date: 10/05/2018 Noted Allergy [...] Itching Date Reviewed: 10/05/2018 Reviewed by: Gayathri Jacome - Fully Assessed Reason for Visit: Established Patient [175] Cmt: COPD Primary Visit Diagnosis:PARESH (obstructive sleep apnea) [G47.33] Other Visit Diagnoses:Obesity hypoventilation syndrome (HCC) [E66.2] Chronic systolic congestive heart failure (HCC) [I50.22] Hypothyroidism, unspecified type [E03.9] Chronic respiratory failure with hypercapnia (HCC) [J96.12] Order(s):NT PRO BNP [SQNTBNP] Order #: [id number] FUTURE TSH BLD [SQTSH] Order #: [id number] FUTURE Prescriptions as of 10/05/2018 Sig: NITROGLYCERIN [...] Take 1 tablet by mouth every * Wireless Se[employer] ULTRA BLUE TEST STRIP USE DIRECTED TO [...] [I25.10] INVALID FOR* Diabetes mellitus, type II ([facility]) [E11.9] INVALID FOR* Morbid obesity ([facility]) [E66.01] Hypothyroidism [E03.9] Anxiety [F41.9] Sleep apnea [G47.30] 02/14/2017 Essential hypertension [I10] 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 CHF (congestive heart failure) ([facility]) [I50.9] BPPV (benign paroxysmal positional vertigo) [...] to follow these results. Gayathri Jacome MD, [facility] Respiratory [place] [facility] and Ambulatory Surgery [address] [address] P: [phone] F: [phone] Visit Notes: >> Katja Campoverde LISA Mon Oct 05, 2018 1:21 PM Status: Attested ROS: General: Generally feels fatigued, achy. Appetite fair. Eyes, Ears, nose, throat: notes post nasal drip. notes rhinorrhea. denies purulent nasal discharge. denies epistaxis. denies hoarseness. Vision stable. Cardiac: notes angina, notes edema, notes orthopnea. GI: occasional heartburn. notes dysphagia. denies diarrhea. 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 denies hesitancy. denies nocturia. Menses: post menopausal Musculoskeletal: I ache all over Neuro: notes headache, notes focal weakness. notes tremor. Skin: notes itching/rash in abdominal folds, treated as yeast by PCP. Otherwise negative. Follow Up: Call patient with results Follow-up and Disposition History Recorded Encounter Status:Closed by GAYATHRI JACOME MD on 10/05/18 PROGRESS Observed: 09/30/2018 Status: COMPLETED Source: RELIANCE 5:23 PM [facility] REPOSITORY HNO ID: [id number] Author: Saad Allen) Larry Service: (none) Author Type: Registered Nurse Type: Progress Notes Filed: 09/30/2018 5:26 PM Note Text: PRIMARY CARE COORDINATION QUICK NOTE Provider Action/FYI TC to patient, informed Clotrimazole vaginal cream was sent to [place]. Pt should call in the morning and ask them to deliver it to her. Also continue Diflucan as directed. Pt to increase Lantus insulin to 44 units BID and PCC will call next week for BS Patient identified by name and date . Saad Silvestre RN September 30, 2018 5:06 PM PROGRESS Observed: 09/30/2018 Status: COMPLETED Source: RELIANCE 5:02 PM [facility] REPOSITORY HNO ID: [id number] Author: Nanda Rodriguez) Brian Service: (none) Author [...] BID. PROGRESS Observed: 09/30/2018 Status: COMPLETED Source: RELIANCE 4:35 PM [facility] REPOSITORY HNO ID: [id number] Author: Saad Allen) Larry Service: (none) Author [...] with lunch, and 24 units with dinner Service Engine Repairer plan for next outreach: Will follow up one week Signature Saad Silvestre RN September 30, 2018 POTASSIUM Collected: 09/30/2018 Status: F Source: RELIANCE 11:53 AM [facility] REPOSITORY TYPE CODE TESTS RESULT OUT OF REFERENCE UNITS RANGE LAB K 3.7-5.1 mmol/L Low Potassium 3.4 Performed By: #### K1, MG1 #### [facility] [address] [place], [place] [address] MAGNESIUM Collected: 09/30/2018 Status: F Source: RELIANCE 11:53 AM [facility] REPOSITORY TYPE CODE TESTS RESULT OUT OF REFERENCE UNITS RANGE LAB MG 1.7-2.3 mg/dL Magnesium 1.7 Performed By: #### K1, MG1 #### [facility] [address] [place], [place] [address] XR CHEST 2V FRONTAL/LAT Observed: 09/30/2018 Status: F Source: RELIANCE 11:35 AM [facility] REPOSITORY * * *Final Report* * * [...] kyphosis. IMPRESSION: No acute radiographic abnormality. Cardiomegaly Adult Health Clinical Nurse Specialist: ALLEGRA Transcribe Date/Time: Sep 30 2018 2:17P Dictated by : LUIS BALBUENA MD This examination was interpreted and the report reviewed and electronically signed by: LUIS BALBUENA MD on Sep 30 2018 2:19PM EST [id number] PROGRESS Observed: 09/30/2018 Status: COMPLETED Source: RELIANCE 11:27 AM [facility] REPOSITORY HNO ID: [id number] Author: Mackenzie Sotelo (Rt) Edis Lopez Service: (none) Author Type: Bar Porter Type: Progress Notes Filed: 09/30/2018 11:36 AM [...] AM CNPTOUTREACH Observed: 09/30/2018 Status: COMPLETED Source: RELIANCE 12:00 AM [facility] REPOSITORY Patient Outreach (FAMPWS) TAMIA PANDA ([id number]) 1955 F Date Time Provider Department 09/30/18 [...] 262 [phone] Bedtime 190 430 344 296 Any low blood sugars during this period of reporting No Patient's diabetes medications as follows: insulin glargine (LANTUS SOLOSTAR U-100 INSULIN) Inject 40 units subcutaneously twice daily insulin lispro (HUMALOG KWIKPEN INSULIN) Inject subcutaneously 14 units with breakfast, 22 units with lunch, and 24 units with dinner Service Engine Repairer plan for next outreach: Will follow up [...] informed Clotrimazole vaginal cream was sent to [place]. Pt should call in the morning and [...] Ma - Fully Assessed Reason for Visit: Machine Baster Chronic Care [1620] Visit Diagnosis:Type 2 diabetes mellitus with diabetic neuropathy, with long-term current use of insulin ([facility]) [E11.40, Z79.4] Order(s):insulin glargine (LANTUS SOLOSTAR [...] Essential hypertension [I10] 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 CHF (congestive heart failure) ([facility]) [I50.9] BPPV (benign paroxysmal positional vertigo) [...] 09/30/18 PROGRESS Observed: 09/28/2018 Status: COMPLETED Source: RELIANCE 9:11 AM [facility] REPOSITORY HNO ID: [id number] Author: Saad Allen) Larry Service: (none) Author Type: Registered Nurse Type: Progress Notes Filed: 09/28/2018 9:13 AM Note Text: PRIMARY CARE COORDINATION FOLLOW-UP NOTE Provider Action/FYI FYI Patient identified by name and date of . YES Spoke to [place] Man Summary: Informed pt's Lyrica is discontinued, please make note and remove from patient's pill packages, verbalized understanding. Service Engine Repairer plan for next outreach: Will follow up one week Signature Saad Silvestre RN September 28, 2018 PROGRESS Observed: 09/25/2018 Status: COMPLETED Source: RELIANCE 5:34 PM [facility] REPOSITORY HNO ID: [id number] Author: Saad Allen) Larry Service: (none) Author Type: Registered Nurse Type: Progress Notes Filed: 09/25/2018 5:37 PM Note Text: PRIMARY CARE COORDINATION IN OFFICE VISIT WITH PCP Patient has been identified by name and date of . PCP Assessment/Plan: Reviewed PCP plan with patient using Teach Back Discussed possible loss of TITLE I DIRECTOR if son's are at pt's home when TITLE I DIRECTOR visits. Discussed ramifications of losing home health, pt understands PCC Plan of Care: Patient goals: Pt will work on snacking less to get BS under control PCC Intervention: PCC will call [facility] to discontinue Lyrica order on Fri, 09/28 PCC will call pt next week for BS Next Office Visit: 10/22/2018 Plan For Next Call: One week Saad Silvestre RN September 25, 2018 IRON AND TIBC Collected: 09/25/2018 Status: F Source: RELIANCE 5:06 PM [facility] REPOSITORY TYPE CODE TESTS RESULT OUT OF REFERENCE UNITS RANGE LAB IRN 41-186 ug/dL Iron 45 LAB TIBC 232-386 ug/dL TIBC 301 LAB SAT 15-57 % Transferrin Saturatn 15 Performed By: #### IRON, CMP, FERR, HBA1C, VITD #### [facility] [address] [place], [place] [address] COMP METABOLIC PANEL Collected: 09/25/2018 Status: F Source: RELIANCE 5:06 PM [facility] REPOSITORY TYPE CODE TESTS RESULT OUT OF REFERENCE UNITS RANGE LAB TP 6.3-8.0 g/dL Protein, Total 6.7 LAB ALB 3.9-4.9 g/dL Low Albumin 3.5 LAB CA 8.5-10.2 mg/dL Calcium, Total 8.5 LAB TBIL 0.2-1.3 mg/dL Bilirubin, Total 0.8 LAB ALKP 34-123 U/L Alkaline Phosphatase 49 LAB AST 13-35 U/L AST 17 LAB GLU 74-99 mg/dL Glucose High 207 Result Comment: The [place] Diabetes Association (ADA) provides guidance for cutoff [...] Standards of Medical Care in Diabetes 2016, [place] [employer] Association. Diabetes Care. 2016.39(Suppl 1). LAB [...] #### IRON, CMP, FERR, HBA1C, VITD #### [facility] [address] [place] [address] FERRITIN Collected: 09/25/2018 Status: F Source: RELIANCE 5:06 PM [facility] REPOSITORY TYPE CODE TESTS RESULT OUT OF REFERENCE UNITS RANGE LAB FERR 14.7-205.1 ng/mL Ferritin 138.2 Performed By: #### IRON, CMP, FERR, HBA1C, VITD #### [facility] [facility] [address] [place] [place] [address] HEMOGLOBIN A1C Collected: 09/25/2018 Status: F Source: RELIANCE 5:06 [facility] REPOSITORY TYPE CODE TESTS RESULT OUT OF REFERENCE UNITS RANGE LAB HGBA1C 4.3-5.6 % High Hemoglobin A1c 8.4 Result Comment: [place] Diabetes Association guidelines indicate that patients with HgbA1c in the range 5.7-6.4% are at increased risk for development of diabetes, and intervention by lifestyle modification may be beneficial. HgbA1c greater or equal to 6.5% is considered diagnostic of diabetes. LAB HBA0 mg/dL Est. Average Glucose 194 Result Comment: eAG: (Estimated average glucose) is a calculated value from HgbA1c and is community health program representative of the average blood glucose level in the last 2-3 month period. Performed By: #### IRON, CMP, FERR, HBA1C, VITD #### [facility] [address] [place] [address] VITAMIN D 25 HYDROXY Collected: 09/25/2018 Status: F Source: RELIANCE 5:06 [facility] REPOSITORY TYPE CODE TESTS RESULT OUT OF REFERENCE UNITS RANGE LAB VITD 31.0-80.0 ng/mL Low Vitamin D 25 14.5 Hydroxy Result Comment: Classification of 25 [place] Vitamin D status: Insufficiency/Moderate Deficiency: < or = 30 ng/mL Sufficiency/Optimal Levels: 31 to 80 ng/mL Toxicity: > 100 ng/mL Test performed by chemiluminescent immunoassay. Performed By: #### IRON, CMP, FERR, HBA1C, VITD #### [facility] [address] [place] [id number] PROGRESS Observed: 09/25/2018 Status: COMPLETED Source: RELIANCE 4:25 PM [facility] REPOSITORY HNO ID: [id number] Author: Nanda Rodriguez) Brian Service: (none) Author Type: Physician Type: Progress Notes Filed: 09/27/2018 5:12 PM Note Text: Chief Complaint Patient presents with: Hospital Follow Up: tcm - also - ongoing back and hip pain HPI Tamia Panda is a 63 year old female who presents here today for Hospital Discharge Follow up. Patient admitted to [facility] from 09/09 to 09/11 with altered mental [...] 7 days Script called to Tejal at [facility] Tejal called back and stated prescription was sent to [facility] and was picked up on 09/11 PCC tried to call pt, line busy ? Initial contact with patient post discharge, spoke to patient. Patient identified by name and . ? TRANSITION CARE MANAGEMENT: Date of Outreach: 09/14/2018 Outreach Attempt 1: Contact Made Date of Discharge 09/11/2018 Some recent data might be hidden ? SUMMARY: -Pt discharged from [facility] on 09/11. -Follow up appointment on 09/18 [...] none ? BRIEF HOSPITAL COURSE: Copied from [facility] Conversocial: ? The patient is a 63 year [...] with the itching. Patient living out [place] [address] with sons Avery and Kamari since [...] chronic obstructive pulmonary disease with respiratory failure ([facility]) - AF (paroxysmal atrial fibrillation) ([facility]) - Anxiety - Arthritis Seeing Dr Elliott - Cervical cancer ([facility]) hysterectomy - CHF (congestive heart failure) ([facility]) - Chronic back pain Seeing Dr. Wallace - Constipation - COPD (chronic obstructive pulmonary disease) ([facility]) AISHA Kirk for BiPAP and [facility] for O2. - Coronary atherosclerosis of [place] coronary artery Previously seeing Dr. Sosa - DDD (degenerative disc disease), lumbar - DM type 2 (diabetes mellitus, type 2) ([facility]) Seeing Dr. Foley for podiatry - DVT (deep venous thrombosis) ([facility]) Post op INA, BSO. - Dysphagia Seeing Dr. Beaulieu - Emphysema lung ([facility]) - Essential hypertension - Functional dyspepsia - Gastroparesis 2016 mild - GERD without esophagitis - Headache - History of colon polyps 11/28/2016 - Hyperlipidemia - Hypothyroidism - Incontinence Seeing Dr. Chapman - Lung nodule 02/[address] in 3 months - Morbid obesity ([facility]) - Muscle weakness - Nausea - PARESH on CPAP DME [facility] for BiPAP and [facility] for O2. 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 Social History Main Topics [...] status type - ICD9: 780.97, ICD10: R41.82 2/2 #1. Resolved. F/u 10/22 as scheduled for [...] with more than 50% of the total avvl-kl-brci time of the visit in counseling / coordination of care. Nanda Oliveira MD CNOV Observed: 09/25/2018 Status: COMPLETED Source: RELIANCE 4:20 PM [facility] REPOSITORY Office Visit (FAMPWS) TAMIA PANDA ([id number]) 1955 F Date Time Provider Department 09/25/18 4:20 PM NANDA OLIVEIRA) FAMPWS During your visit [...] Hospital Discharge Follow up. Patient admitted to [facility] from 09/09 to 09/11 with altered mental [...] 7 days Script called to Tejal at [facility] Tejal called back and stated prescription was sent to [facility] and was picked up on 09/11 PCC tried to call pt, line busy ? Initial contact with patient post discharge, spoke to patient. Patient identified by name and . ? TRANSITION CARE MANAGEMENT: Date of Outreach: 09/14/2018 Outreach Attempt 1: Contact Made Date of Discharge 09/11/2018 Some recent data might be hidden ? SUMMARY: -Pt discharged from [facility] on 09/11. -Follow up appointment on 09/18 [...] none ? BRIEF HOSPITAL COURSE: Copied from [facility] Conversocial: ? The patient is a 63 year [...] with the itching. Patient living out [address] with sons Avery and Kamari since [...] chronic obstructive pulmonary disease with respiratory failure ([facility]) - AF (paroxysmal atrial fibrillation) ([facility]) - Anxiety - Arthritis Seeing Dr Elliott - Cervical cancer ([facility]) hysterectomy - CHF (congestive heart failure) ([facility]) - Chronic back pain Seeing Dr. Wallace - Constipation - COPD (chronic obstructive pulmonary disease) ([facility]) DME [facility] for BiPAP and [facility] [place] for O2. - Coronary atherosclerosis of [place] coronary artery Previously seeing Dr. Sosa - DDD (degenerative disc disease), lumbar - DM type 2 (diabetes mellitus, type 2) ([facility]) Seeing Dr. Foley for podiatry - DVT (deep venous thrombosis) ([facility]) Post op INA, BSO. - Dysphagia Seeing Dr. Beaulieu - Emphysema lung ([facility]) - Essential hypertension - Functional dyspepsia - Gastroparesis 2017 mild - GERD without esophagitis - Headache - History of colon polyps 11/28/2016 - Hyperlipidemia - Hypothyroidism - Incontinence Seeing Dr. Chapman - Lung nodule 02/[address] in 3 months - Morbid obesity ([facility]) - Muscle weakness - Nausea - PARESH on CPAP DME [facility] for BiPAP and [facility] [place] for O2. - PE (pulmonary thromboembolism) ([facility]) Post op INA/BSO. - Pneumonia - [...] 516 ndle USE DIRECTED. 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 Social History Main Topics [...] neuropathy, with long-term current use of insulin ([facility]) - ICD9: 250.60, 357.2, V58.67, ICD10: E11.40, Z79.4 Obtain A1C prior to upcoming appointment. - HGB A1C I spent 40 minutes in the visit, with more than 50% of the total ykzo-hj-vypv time of the visit in counseling / [...] to be taking Lyrica? was DC at [facility] - patient still recieveing in pill packs Reason For Visit History Recorded Primary Visit Diagnosis:Community acquired pneumonia, unspecified laterality [J18.9] Other Visit Diagnoses:Altered mental status, unspecified altered mental status type [R41.82] TITI (acute kidney injury) ([facility]) [N17.9] Vaginal yeast infection [B37.3] Hospital discharge follow-up [Z09] Type 2 diabetes mellitus with diabetic neuropathy, with long-term current use of insulin ([facility]) [E11.40, Z79.4] Order(s):XR CHEST 2V FRONTAL/LAT [1966373] Order #: [id number] FUTURE fluconazole (DIFLUCAN) 100 mg tabletTake 1 tablet by mouth every 72 hours for 3 doses.Disp: 3 tabletRfl: 0 COMP METABOLIC PANEL [SQCMP] Order #: [id number] FUTURE HGB A1C [TPOYA4V] Order #: [id number] FUTURE Prescriptions as of 09/25/2018 Sig: ASCORBIC [...] [I25.10] INVALID FOR* Diabetes mellitus, type II ([facility]) [E11.9] INVALID FOR* Morbid obesity ([facility]) [E66.01] Hypothyroidism [E03.9] Anxiety [F41.9] Sleep apnea [G47.30] 02/14/2017 Essential hypertension [I10] 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 CHF (congestive heart failure) ([facility]) [I50.9] BPPV (benign paroxysmal positional vertigo) [...] Status:Closed by NANDA OLIVEIRA MD on 09/27/18 LMTOUTRSERINACH Observed: 09/25/2018 Status: COMPLETED Source: RELIANCE 12:00 AM [facility] REPOSITORY Patient Outreach (FAMPWS) TAMIA PANDA ([id number]) 1955 F Date Time Provider Department 09/25/18 SAAD SILVESTRE) KEDNRICKWS During your visit today, we recorded the following information about you: Saad Silvestre RN 09/25/2018 5:37 PM Signed PRIMARY CARE COORDINATION IN OFFICE VISIT WITH PCP Patient has been identified by name and date of . PCP Assessment/Plan: Reviewed PCP plan with patient using Teach Back Discussed possible loss of TITLE I DIRECTOR if son's are at pt's home when TITLE I DIRECTOR visits. Discussed ramifications of losing home health, pt understands PCC Plan of Care: Patient goals: Pt will work on snacking less to get BS under control PCC Intervention: PCC will call [facility] to discontinue Lyrica order on Fri, 09/28 PCC will call pt next week for BS Next Office Visit: 10/22/2018 Plan For Next Call: One week Saad Silvestre RN September 25, 2018 Saad Silvestre RN 09/28/2018 9:13 AM Signed PRIMARY CARE COORDINATION FOLLOW-UP NOTE Provider Action/FYI FYI Patient identified by name and date of . YES Spoke to [place] Man Summary: Informed pt's Lyrica is discontinued, please make note and remove from patient's pill packages, verbalized understanding. Service Engine Repairer plan for next outreach: Will follow up [...] Ma - Fully Assessed Reason for Visit: Machine Baster-In Office Visit [4194] Prescriptions as of 09/25/2018 Sig: ASCORBIC ACID [...] Essential hypertension [I10] 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 CHF (congestive heart failure) ([facility]) [I50.9] BPPV (benign paroxysmal positional vertigo) [...] FOR* Encounter Status:Closed by SAAD SILVESTRE on 09/25/18 OBSOLETE Observed: 09/23/2018 Status: COMPLETED Source: GERMAN 12:00 AM [facility] REPOSITORY Refill (GAMALIEL) TAMIA PANDA ([id number]) 1955 F Date Time Provider Department 09/23/18 SHAN MIDDLETON During your visit today, we recorded the following information about you: Chris Serna MA 09/24/2018 9:49 AM Signed Physician: Emi [...] DAILY WITH BREAKFAST SCOTT: Yes [facility] NELI Hunter RN 09/24/2018 12:20 PM Signed CHAUNCEY 05/06/18 F/U Not scheduled, left msg for pt to call back Sleep Disorder Dx Impression: Obstructive sleep apnea - moderate to severe ? ? Other Conditioning Diagnoses: CHF DM2 CAD COPD PAF Morbid obesity ? Case Formulation / Bouse (may include pt's hopes, fears, expectations, concerns): The new settings are indicated from [facility]; Time for a new DME locally ? Actions taken: Motivational Interviewing aspects taken Hearing ougt PDMP Aspect: na ? ? New order for bipap 06/09 with 2 liters. ? Plan: See how doing on new arrangement ? Follow up with YRIS Ba in 6 weeks. . ? MD Deysi Moore, MORTICIAN INVESTIGATOR.EXPERIMENTAL ROCKET SLED MECHANIC 09/25/2018 11:22 AM Signed Iron and vitamin [...] 1 IRON + TIBC [SQIRON] Order #: [id number] FUTURE FERRITIN BLD [SQFERR] Order #: [id number] FUTURE VITAMIN D 25 HYDROXY [SQVITD] Order #: [id number] FUTURE Prescriptions as of 09/23/2018 Sig: ASCORBIC [...] BY MOUTH TWICE * DULOXETINE 60 MG CAPSULE,AMRIA EUGENIA* TAKE 1 CAPSULE BY MOUTH DAILY [...] [I25.10] INVALID FOR* Diabetes mellitus, type II ([facility]) [E11.9] INVALID FOR* Morbid obesity ([facility]) [E66.01] Hypothyroidism [E03.9] Anxiety [F41.9] Sleep apnea [G47.30] 02/14/2017 Essential hypertension [I10] 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 CHF (congestive heart failure) ([facility]) [I50.9] BPPV (benign paroxysmal positional vertigo) [...] 09/25/18 PROGRESS Observed: 09/15/2018 Status: COMPLETED Source: RELIANCE 7:27 PM [facility] REPOSITORY HNO ID: [id number] Author: Nanda Rodriguez) Brian Service: (none) Author Type: Physician Type: Progress Notes Filed: 09/16/2018 11:01 AM Note Text: Late entry: Patient was called by PCC Saad Silvestre yesterday at 12:24 regarding abx. Patient found that she had it in her bag and forgot about it. Was told to take it NOW. Patient understood instructions. PROGRESS Observed: 09/14/2018 Status: COMPLETED Source: RELIANCE 11:38 AM [facility] REPOSITORY HNO ID: [id number] Author: Saad Allen) Larry Service: (none) Author Type: Registered Nurse Type: Progress Notes Filed: 09/14/2018 12:03 PM Note Text: TRANSITION CARE MANAGEMENT (TCM) INITIAL CONTACT Provider Action/FYI: Pt didn't get script for ATB and didn't know she was to be taking ATB Verbal order given by PCP for Augmentin 875 mg Q12H x 7 days Script called to Tejal at [facility] Tejal called back and stated prescription was sent to [facility] and was picked up on 09/11 PCC tried to call pt, line busy Initial contact with patient post discharge, spoke to patient. Patient identified by name and . TRANSITION CARE MANAGEMENT: Date of Outreach: 09/14/2018 Outreach Attempt 1: Contact Made Date of Discharge 09/11/2018 Some recent data might be hidden SUMMARY: -Pt discharged from [facility] on 09/11. -Follow up appointment on 09/18 [...] HELD/DISCONTINUED: none BRIEF HOSPITAL COURSE: Copied from [facility]: The patient is a 63 year old [...] AM CNPTOUTREACH Observed: 09/14/2018 Status: COMPLETED Source: RELIANCE 12:00 AM [facility] REPOSITORY Patient Outreach (FAMPWS) TAMIA PANDA ([id number]) 1955 F Date Time Provider Department 09/14/18 SAAD SILVESTRE (NINA) FAMPWS During your visit today, we recorded the following information about you: Saad Silvestre RN 09/14/2018 12:03 PM Signed TRANSITION CARE MANAGEMENT (TCM) INITIAL CONTACT Provider Action/FYI: Pt didn't get script for ATB and didn't know she was to be taking ATB Verbal order given by PCP for Augmentin 875 mg Q12H x 7 days Script called to Tejal at [facility] Tejal called back and stated prescription was sent to [facility] and was picked up on 09/11 PCC tried to call pt, line busy Initial contact with patient post discharge, spoke to patient. Patient identified by name and . TRANSITION CARE MANAGEMENT: Date of Outreach: 09/14/2018 Outreach Attempt 1: Contact Made Date of Discharge 09/11/2018 Some recent data might be hidden SUMMARY: -Pt discharged from [facility] on 09/11. 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 CHF (congestive heart failure) ([facility]) [I50.9] BPPV (benign paroxysmal positional vertigo) [...] LEAD ELECTROCARDIOGRAM Observed: 09/11/2018 Status: F Source: STURGEON 1:57 PM [facility] REPOSITORY [facility] Cardiovascular Services [address] [place] [address] 12 Lead EKG 09/09/18 1659 MR#: [id number] Acct: [id number] Name: TAMIA PANDA Rep #: [id number] : 1955 63 From: Bart Blas MD Attending Dr: Yvon Hogan MD Status: ADM IN Ordering Dr: Anju Gibson MD Date: 09/09/18 Location: [facility] Sex: F C Admitted: 09/09/18 Test Reason [...] ECG Confirmed by BART BLAS MD ([id number]), state editor SHYANNE TERRAZAS ([id number]) on 09/11/2018 1:57:01 PM Referred By: Annamarie Andrews Confirmed By:BART BLAS MD 09/11/18 3717 Date Bart Blas MD CC: MD Eder Gibson; Bhupendra Oliveira MD; Yvon Hogan MD; Annamarie Andrews MD Signed DISCHARGE SUMMARY Observed: 09/11/2018 Status: F Source: STURGEON 12:43 PM [facility] REPOSITORY [facility] Medical Records Department [address] [place] [address] Discharge Summary 09/11/18 1006 MR#: [id number] Acct: [id number] Name: TAMIA PANDA Rep #: [id number] : 1955 63 From: Rosa Hanna OPERATIONS AND MAINTENANCE TECHNICAN-C PCP: Bhupendra Oliveira MD Status: ADM IN Y [facility] <Rosa Hanna - Last Filed: 09/11/18 10:14> [...] Rashaun Glasgow DO at 18:25 EST Tel [phone], Service support , Brain CT 09/09/18 17:17 [...] 785 / 785 Microbiology Past 72 Hours 12/20/18 02:45 Respiratory Panel (PCR) - Final Mucosa - Nasopharyngeal Laboratory Tests Past 24 Hrs Urine Opiates Screen NEGATIVE Urine Methadone Screen NEGATIVE Ur Barbiturates Screen NEGATIVE Ur Phencyclidine Scrn NEGATIVE POC Glucose POC Glucose 472 H* 372 H 322 H POC Glucose 360 H Code Visit Inpatient Donato ALBERT M: [id number] Disch Hosp 09/11/18 1014 <Electronically signed by Rosa Hanna OPERATIONS AND MAINTENANCE TECHNICAN-C> Date Rosa Hanna OPERATIONS AND MAINTENANCE TECHNICAN-C 09/11/18 1243<Electronically signed by Yvon Hogan MD> Cosigner Signature (if applicable): Date Yvon Hogan MD CC: OPERATIONS AND MAINTENANCE TECHNICAN-C Rosa Hanna; Bhupendra Oliveira MD; Yvon Hogan MD Signed BEDSIDE GLUCOSE Collected: 09/11/2018 Status: F Source: STURGEON 12:02 PM [facility] REPOSITORY TYPE CODE TESTS RESULT OUT OF REFERENCE UNITS RANGE LAB L501.080 70-110 mg/dL High alert BEDSIDE GLU 472 Result Comment: MANAGEMENT OF PATIENT CARE PER NURSING PROTOCOL Performed By: #### L501.080 #### [facility] Point of Care [address] [facility] [place] [address] DISCHARGE INSTRUCTION Observed: 09/11/2018 Status: F Source: STURGEON 10:06 AM [facility] REPOSITORY [facility] Medical Records Department [address] [place] [address] Instructions for Home/Discharge Instructions 09/11/18 0955 MR#: [id number] Acct: [id number] Name: TAMIA PANDA Jennifer Rep #: [id number] : 1955 63 From: Rosa Hanna NP-C PCP: Bhupendra Oliveira MD Status: ADM IN [...] 09/11/18 09/11/18 1006 <Electronically signed by Rosa MONIQUEC> Date Rosa GURROLA CC: Bhupendra Oliveira MD BEDSIDE GLUCOSE Collected: 09/11/2018 Status: F Source: KINJAL 6:38 AM [facility] REPOSITORY TYPE CODE TESTS RESULT OUT OF REFERENCE UNITS RANGE LAB L501.080 70-110 mg/dL High BEDSIDE GLU 372 Result Comment: MANAGEMENT OF PATIENT CARE PER NURSING PROTOCOL Performed By: #### L501.080 #### [facility] Point of Care [address] [facility]. [place], [place] [address] BEDSIDE GLUCOSE Collected: 09/10/2018 Status: F Source: KINJAL 9:27 PM [facility] REPOSITORY TYPE CODE TESTS RESULT OUT OF REFERENCE UNITS RANGE LAB L501.080 70-110 mg/dL High BEDSIDE GLU 322 Result Comment: MANAGEMENT OF PATIENT CARE PER NURSING PROTOCOL Performed By: #### L501.080 #### [facility] Point of Care [address] [place] [address] BEDSIDE GLUCOSE Collected: 09/10/2018 Status: F Source: KINJAL 4:28 PM [facility] REPOSITORY TYPE CODE TESTS RESULT OUT OF REFERENCE UNITS RANGE LAB L501.080 70-110 mg/dL High BEDSIDE GLU 360 Result Comment: MANAGEMENT OF PATIENT CARE PER NURSING PROTOCOL Performed By: #### L501.080 #### [facility] Point of Care [address] [place] [address] URINE DRUG SCREEN Collected: 09/10/2018 Status: F Source: KINJAL (VISTA) 3:37 PM [facility] REPOSITORY TYPE CODE TESTS RESULT OUT OF [...] Normal NEGATIVE Performed By: #### L505.5000 #### [facility] [address] [place], [address] BEDSIDE GLUCOSE Collected: 09/10/2018 Status: F Source: KINJAL 11:22 AM [facility] REPOSITORY TYPE CODE TESTS RESULT OUT OF REFERENCE UNITS RANGE LAB L501.080 70-110 mg/dL High BEDSIDE GLU 352 Result Comment: MANAGEMENT OF PATIENT CARE PER NURSING PROTOCOL Performed By: #### L501.080 #### [facility] Point of Care [address] [facility] [address] [place], [place] [address] CBC W/DIFF, AUTOMATED Collected: 09/10/2018 Status: F Source: KINJAL 7:00 AM [facility] REPOSITORY TYPE CODE TESTS RESULT OUT OF [...] Lymph 1.12 Performed By: #### L100.0100 #### [facility] [address] [facility] [place], [place], [id number] BASIC METABOLIC Collected: 09/10/2018 Status: F Source: KINJAL PROFILE (BMP) 7:00 AM [facility] REPOSITORY TYPE CODE TESTS RESULT OUT OF [...] GAP 10 Performed By: #### L500.2500 #### [facility] [address] [place], [place], [address] BEDSIDE GLUCOSE Collected: 09/10/2018 Status: F Source: KINJAL 6:49 AM [facility] REPOSITORY TYPE CODE TESTS RESULT OUT OF REFERENCE UNITS RANGE LAB L501.080 70-110 mg/dL High BEDSIDE GLU 187 Result Comment: MANAGEMENT OF PATIENT CARE PER NURSING PROTOCOL Performed By: #### L501.080 #### [facility] Point of Care [address] [place], [place] [address] HISTORY AND PHYSICAL Observed: 09/10/2018 Status: F Source: STURGEON EXAM 3:54 AM [facility] REPOSITORY [facility] Medical Records Department [address] [place] [address] History and Physical 09/09/182000 MR#: [id number] Acct: [id number] Name: TAMIA PANDA Rep #: [id number] : 1955 63 From: Annamarie Andrews MD PCP: Bhupendra Oliveira MD Status: ADM IN Y Location: [place] [address] History of Present Illness Date of Admission: [...] Duloxetine Hcl [Cymbalta] 60 mg PO DAILY 18 Surgical History: angioplasty, cholecystectomy, herniorrhaphy, hysterectomy, - - tubal ligation. 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 Lives: Alone Smoking Status: Former smoker [...] Rashaun Glasgow DO at 18:25 EST Tel [phone], Service support , Brain CT 09/09/18 17:17 [...] * Code Visit Inpatient E AND M: 98131 Init Hosp L3 09/10/18 0354 <Electronically signed by Annamarie Andrews MD> Date Annamarie Andrews MD Cosigner Signature: Date (if applicable) CC: Bhupendra Oliveira MD; Annamarie Andrews MD Signed Observed: 09/10/2018 Status: F Source: STURGEON RESPIRATORY PANEL 2:45 AM [facility] MOLECULAR REPOSITORY RP PANEL ADENOVIRUS Not Detected [...] acid amplification Performed By: #### M100.638 #### [facility] [address] [place], [place], [address] BEDSIDE GLUCOSE Collected: 09/10/2018 Status: F Source: KINJAL 2:01 AM [facility] REPOSITORY TYPE CODE TESTS RESULT OUT OF REFERENCE UNITS RANGE LAB L501.080 70-110 mg/dL High BEDSIDE GLU 188 Result Comment: MANAGEMENT OF PATIENT CARE PER NURSING PROTOCOL Performed By: #### L501.080 #### [facility] Point of Care [address] [place] [address] EMERGENCY DEPARTMENT Observed: 09/09/2018 Status: F Source: STURGEON SUMMARY 11:37 PM [facility] REPOSITORY [facility] Medical Records Department [address] [place] [address] Emergency Department Summary 09/09/18 1744 MR#: [id number] Acct: [id number] Name: TAMIA PANDA Rep #: [id number] : 1955 63 From: Anju Gibson MD [...] generalized weakness This note was generated with Q1 Labsation software. It may contain incorrect words, spelling, and punctuation that were not noted in review of the chart prior to signing ED Disposition - Plan for ED Patient: Chief Complaint: Weakness Referrals: hBupendra Oliveira MD [Primary Care Provider] - What to do if you have Problems For any increased pain, shortness of breath, bleeding, nausea or vomiting, chest pain, or any unexpected problems, contact your Primary Care Provider. Call [facility] ([phone]) or report to the closest Emergency Room. Call 911 if necessary. 09/09/18 2337 <Electronically signed by Anju Gibson MD> Date Anju Gibson MD Cosigner Signature (If Indicated): Date CC: Bhupendra Oliveira MD BEDSIDE GLUCOSE Collected: 09/09/2018 Status: F Source: KINJAL 11:02 PM [facility] REPOSITORY TYPE CODE TESTS RESULT OUT OF REFERENCE UNITS RANGE LAB L501.080 70-110 mg/dL High BEDSIDE GLU 220 Result Comment: MANAGEMENT OF PATIENT CARE PER NURSING PROTOCOL Performed By: #### L501.080 #### [facility] Point of Care [address] [place] [address] URINALYSIS, COMPLETE Collected: 09/09/2018 Status: F Source: KINJAL 6:49 PM [facility] REPOSITORY Order Comment: How was Urine Obtained? TOP LOADER TO SPECIFY TYPE CODE TESTS RESULT OUT [...] URINE SEEN Performed By: #### L400.0001 #### [facility] [address] [place], [address] BLOOD GASES BY CPS Collected: 09/09/2018 Status: F Source: STURGEON 5:58 PM [facility] REPOSITORY TYPE CODE TESTS RESULT OUT OF RANGE REFERENCE UNITS LAB L9000.9990 Normal BLD GAS TYPE ART LAB L9001.1000 Normal SITE R Radial LAB L9001.1010 Normal SALO TEST POS LAB L9001.1050 O2 Normal Delivery Dev Nasal Can LAB L9001.1055 /min Normal LPM 1.0 LAB L9001.1104 Normal Results To ED MD LAB L9001.1105 Normal Time Given 1750 LAB [...] ISTAT 95 Performed By: #### L9000.0800 #### [facility] Point [facility] [address] [place] [address] BRAIN/HEAD WITHOUT Observed: 09/09/2018 Status: F Source: STURGEON CONTRAST 5:17 PM [facility] REPOSITORY [facility] Imaging Services [address] [place] [address] Brain/Head without Contrast MR#: [id number] Acct: [id number] Name: TAMIA PANDA Rep #: [id number] : 1955 F 63 From: Kamari Andino MD PCP: Bhupendra Oliveira MD Status: PRE ER Study: Brain/Head without Contrast Date of Exam: 09/09/18 Exam# [id number] Ordering Dr: Anju Gibson MD STUDY: CT [...] CC: MD Eder Gibson; Bhupendra Oliveira MD Adult Health Clinical Nurse Specialist: Signed CHEST 1 VIEW Observed: 09/09/2018 Status: F Source: KINJAL (PORTABLE) 5:17 PM [facility] REPOSITORY [facility] Imaging Services [address] [place] [address] Chest 1 View (Portable) MR#: [id number] Acct: [id number] Name: TAMIA PANDA Rep #: [id number] : 1955 F 63 From: Rashaun Glasgow DO PCP: Bhupendra Oliveira MD Status: REG ER Study: Chest 1 View (Portable) Date of Exam: 09/09/18 Exam# [id number] Ordering Dr: Anju Gibson MD STUDY: X-RAY [...] Rashaun Glasgow DO at 18:25 EST Tel [phone], Service support , CC: MD Eder Gibson; Bhupendra Oliveira MD Adult Health Clinical Nurse Specialist: Signed CBC W/DIFF, AUTOMATED Collected: 09/09/2018 Status: F Source: KINJAL 5:15 PM [facility] REPOSITORY TYPE CODE TESTS RESULT OUT OF [...] Lymph 1.42 Performed By: #### L100.0100 #### [facility] [address] [place], [address] BASIC METABOLIC Collected: 09/09/2018 Status: F Source: KINJAL PROFILE (BMP) 5:15 PM [facility] REPOSITORY TYPE CODE TESTS RESULT OUT OF [...] Performed By: #### L500.2500, L501.2450, L501.4010 #### [facility] [address] [facility] [place], [place], [address] LIPASE Collected: 09/09/2018 Status: F Source: STURGEON 5:15 PM [facility] REPOSITORY TYPE CODE TESTS RESULT OUT OF REFERENCE UNITS RANGE LAB L501.2450 73-393 U/L Low LIPASE 51 Performed By: #### L500.2500, L501.2450, L501.4010 #### [facility] [address] [place], [address] TROPONIN-I Collected: 09/09/2018 Status: F Source: STURGEON 5:15 PM [facility] REPOSITORY TYPE CODE TESTS RESULT OUT OF RANGE REFERENCE UNITS LAB L501.4010 <0.045 ng/mL Normal < 0.015 TROPONIN-I Result Comment: TROPONIN-I EXPECTED VALUES <0.045 Negative 0.045 - 0.590 Consistent with Cardiac Damage > OR = 0.600 Critical Value Not every elevated troponin is indicative of AK. These values should be used with clinical judgement in examining the patient's clinical picture for diagnosis. To establish a diagnosis of AK versus myocardial injury, there must be a demonstrated rise and/or fall in the troponin values, in addition to ischemic symptoms, EKG changes, new regional wall motion abnormality, and/or angiographical evidence. PLEASE NOTE: REFERENCE RANGES EDITED 18 Performed By: #### L500.2500, L501.2450, L501.4010 #### [facility] [address] [facility] [facility] [address] [place], [place], [address] LIVER PROFILE Collected: 09/09/2018 Status: F Source: KINJAL 5:15 PM [facility] REPOSITORY TYPE CODE TESTS RESULT OUT OF [...] BILI 0.23 Performed By: #### L500.3400 #### [facility] [address] [place], [place], [address] BNP,B-TYPE NATRIURETIC Collected: 09/09/2018 Status: F Source: STURGEON PEPTIDE 5:15 PM [facility] REPOSITORY TYPE CODE TESTS RESULT OUT OF RANGE REFERENCE UNITS LAB L503.6620 0-100 pg/mL High B-TYPE 124.8 STONEY PEP Performed By: #### L503.6620 #### [facility] [address] [facility] [address] [place], [place], [address] BEDSIDE GLUCOSE Collected: 09/09/2018 Status: F Source: KINJAL 5:00 PM [facility] REPOSITORY TYPE CODE TESTS RESULT OUT OF REFERENCE UNITS RANGE LAB L501.080 70-110 mg/dL High BEDSIDE GLU 263 Result Comment: MANAGEMENT OF PATIENT CARE PER NURSING PROTOCOL Performed By: #### L501.080 #### [facility] [facility] [place] [address] CNPN Observed: 09/08/2018 Status: COMPLETED Source: RELIANCE 12:00 AM [facility] REPOSITORY Telephone (FAMPWS) TAMIA PANDA ([id number]) 1955 F Date Time Provider Department 09/08/18 NANDA OLIVEIRA) [facility] your visit today, we recorded the following information about you: Ashley Flores, RN, RN 09/08/2018 9:30 AM Signed nurse calling to report that the pt [...] blood sugar @ that time it 248. nurse also want to report that the [...] current use of insulin (HCC) [E11.40, Z79.4] Order(s):CONSULT TO PODIATRY [9034] Order #: [id number]: 1 Prescriptions as of 09/08/2018 Sig: ALBUTEROL [...] USE TO CHECK BLOOD SUGAR 4-5 * Wireless SeismicUCH ULTRA BLUE TEST STRIP USE DIRECTED TO [...] [I25.10] INVALID FOR* Diabetes mellitus, type II ([facility]) [E11.9] INVALID FOR* Morbid obesity ([facility]) [E66.01] Hypothyroidism [E03.9] Anxiety [F41.9] Sleep apnea [G47.30] 02/14/2017 Essential hypertension [I10] 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 CHF (congestive heart failure) ([facility]) [I50.9] BPPV (benign paroxysmal positional vertigo) [...] 09/09/18 PROGRESS Observed: 09/07/2018 Status: COMPLETED Source: RELIANCE 9:41 PM [facility] REPOSITORY HNO ID: [id number] Author: Nanda Rodriguez) Brian Service: (none) Author Type: Physician Type: Progress Notes Filed: 09/07/2018 9:42 PM Note Text: Reviewed and agree with avoidance of high sugar/carb diet. Will discuss at length at upcoming OV. 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 plan for next outreach: Will follow up next week Signature Saad Silvestre RN September 07, 2018 LMTOUTRROQUE Observed: 09/07/2018 Status: COMPLETED Source: RELIANCE 12:00 AM [facility] REPOSITORY Patient Outreach (FAMPWS) TAMIA PANDA ([id number]) 1955 F Date Time Provider Department 09/07/18 SAAD SILVESTRE (RN) FAMPWS During your visit [...] States she still has moist productive cough Service Engine Repairer plan for next outreach: Will follow up [...] Ma - Fully Assessed Reason for Visit: [facility] Follow Up [3610] Prescriptions as of 09/07/2018 Sig: ALBUTEROL SULFATE [...] USE TO CHECK BLOOD SUGAR 4-5 * VetCloudTOUCH ULTRA BLUE TEST STRIP USE DIRECTED TO [...] [I25.10] INVALID FOR* Diabetes mellitus, type II ([facility]) [E11.9] INVALID FOR* Morbid obesity ([facility]) [E66.01] Hypothyroidism [E03.9] Anxiety [F41.9] Sleep apnea [G47.30] 02/14/2017 Essential hypertension [I10] 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 CHF (congestive heart failure) ([facility]) [I50.9] BPPV (benign paroxysmal positional vertigo) [...] 09/08/18 CONSULTATION Observed: 09/05/2018 Status: F Source: STURGEON 10:06 AM [facility] REPOSITORY [facility] Medical Records Department [address] [place] [address] Consultation 09/02/18 1635 MR#: [id number] Acct: [id number] Name: TAMIA PANDA Rep #: [id number] : 1955 63 From: Ricardo Kamara MD PCP: Bhupendra Oliveira MD Status: DIS NICOLE Y Location: [place] [address] Reason for Consult Date of Consultation: 09/02/18 [...] ligation. 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 PROGRESS Observed: 09/04/2018 Status: COMPLETED Source: RELIANCE 3:19 PM [facility] REPOSITORY HNO ID: [id number] Author: Saad HarrisonRn) Larry Service: (none) Author [...] flowsheet data found. SUMMARY: -Pt discharged from [facility] on 09/03. -Follow up appointment on TBD, pt will call back. -Medication review done No. -Admitted for: Toxic encephalopathy (Acute) Hypokalemia (Acute) Metabolic alkalosis (Acute) CONCERNS: Pt states she is feeling good except very tired. [facility] nurse visited today and did A1C fingerstick which was 6. NEW MEDICATIONS: None MEDS HELD/DISCONTINUED: LYRICA 100 mg TAKE 1 CAPSULE BY MOUTH THREE TIMES A DAY BRIEF HOSPITAL COURSE: COPIED FROM [facility] [employer]: The patient is a 63 year old [...] LEAD ELECTROCARDIOGRAM Observed: 09/04/2018 Status: F Source: STURGEON 9:14 AM [facility] REPOSITORY [facility] Cardiovascular Services [address] [place] [address] 12 Lead EKG 09/02/18 1506 MR#: [id number] Acct: [id number] Name: TAMIA PANDA Rep #: [id number] : 1955 63 From: Bart Blas MD Attending Dr: Zuhair Cohn DO Status: DIS NICOLE Ordering Dr: Anju Gibson MD Date: 09/02/18 Location: U Sex: F C Admitted: 09/02/18 Test Reason [...] ECG Confirmed by BART BLAS MD ([id number]), state editor SHYANNE TERRAZAS ([id number]) on 09/04/2018 9:13:49 AM Referred By: Cindi Sharif Confirmed By:BART BLAS MD 09/04/18 0913 Date Bart Blas MD CC: MD Eder Gibson; Anna Sharif; Bhupendra Oliveira MD; Zuhair Cohn DO Signed CNPTOUTREACH Observed: 09/04/2018 Status: COMPLETED Source: RELIANCE 12:00 AM [facility] REPOSITORY Patient Outreach (FAMPWS) TAMIA PANDA ([id number]) 1955 F Date Time Provider Department 09/04/18 [...] flowsheet data found. SUMMARY: -Pt discharged from [facility] on 09/03. -Follow up appointment on D, pt will call back. -Medication review done No. -Admitted for: Toxic encephalopathy (Acute) Hypokalemia (Acute) Metabolic alkalosis (Acute) CONCERNS: Pt states she is feeling good except very tired. [facility] nurse visited today and did A1C fingerstick which was 6. 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] INVALID FOR* PARESH treated with BiPAP [G47.33] INVALID FOR* Hyperlipidemia [E78.5] INVALID FOR* Coronary disease [I25.10] INVALID FOR* Diabetes mellitus, type II ([facility]) [E11.9] INVALID FOR* Morbid obesity ([facility]) [E66.01] Hypothyroidism [E03.9] Anxiety [F41.9] Sleep apnea [G47.30] 02/14/2017 Essential hypertension [I10] 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 CHF (congestive heart failure) ([facility]) [I50.9] BPPV (benign paroxysmal positional vertigo) [...] DISCHARGE SUMMARY Observed: 09/03/2018 Status: F Source: STURGEON 11:37 AM [facility] REPOSITORY [facility] Medical Records Department [address] [place] [address] Discharge Summary 09/03/18 1133 MR#: [id number] Acct: [id number] Name: TAMIA PANDA Rep #: [id number] : 1955 63 From: Zuhair Cohn DO PCP: Bhupendra Oliveira MD Status: ADM NICOLE Y Location: [place] [address] Discharge Date and Diagnosis - Problem List [...] Bentley Montejo MD at 15:29 EST Tel [phone], Service support , Head CTA 09/02/18 14:42 IMPRESSION: Normal bilateral cervical carotid and vertebral arteries. N.B. : The above information has been verbally conveyed by Bentley Montejo MD to Maria Fernanda Moss DO, on 09/02/2018 14:59:45 (ET). Electronically Signed: Bentley Montejo MD at 15:00 EST Tel [phone], Service support , Neck CTA 09/02/18 14:42 IMPRESSION: Normal bilateral cervical carotid and vertebral arteries. N.B. : The above information has been verbally conveyed by Bentley Montejo MD to Maria Fernanda Moss DO, on 09/02/2018 14:59:45 (ET). Electronically Signed: Bentley Montejo MD at 15:00 EST Tel [phone], Service support , Chest X-Ray 09/02/18 14:55 IMPRESSION: Cardiomegaly. Thoracic congestion and mild CHF. Electronically Signed: Bentley Montejo MD at 15:14 EST Tel [phone], Service support , Brain MRI 09/03/18 05:55 [...] 08/06/18 Aspirin E.C. [Ecotrin] 81 mg PO DAILY@0809/02/18 Buspirone HCl [Buspar] 7.5 mg PO BID [...] applicable Code Visit OBSV E AND M: 12420 Observation care discharge 09/03/18 1137 <Electronically signed by Zuhair Cohn DO> Date Zuhair Madsen Signature (if applicable): Date CC: Bhupendra Oliveira MD; Zuhair Cohn DO Signed DISCHARGE INSTRUCTION Observed: 09/03/2018 Status: F Source: KINJAL 11:33 AM [facility] REPOSITORY [facility] Medical Records Department [address] [place] [address] Instructions for Home/Discharge Instructions 09/03/18 1129 MR#: [id number] Acct: [id number] Name: TAMIA PANDA Rep #: [id number] : 1955 63 From: Zuhair Cohn DO [...] 09/03/2018 Status: F Source: KINJAL 11:23 AM [facility] REPOSITORY TYPE CODE TESTS RESULT OUT OF REFERENCE UNITS RANGE LAB L501.080 70-110 mg/dL High BEDSIDE GLU 321 Result Comment: MANAGEMENT OF PATIENT CARE PER NURSING PROTOCOL Performed By: #### L501.080 #### [facility] Point [place] [address] BEDSIDE GLUCOSE Collected: 09/03/2018 Status: F Source: KINJAL 6:49 AM [facility] REPOSITORY TYPE CODE TESTS RESULT OUT OF REFERENCE UNITS RANGE LAB L501.080 70-110 mg/dL High BEDSIDE GLU 154 Result Comment: MANAGEMENT OF PATIENT CARE PER NURSING PROTOCOL Performed By: #### L501.080 #### [facility] Point of Care [address] [place], [place] [address] CBC-COMPLETE BLOOD CNT Collected: 09/03/2018 Status: F Source: KINJAL NO DIFF 5:40 AM [facility] REPOSITORY TYPE CODE TESTS RESULT OUT OF [...] MPV 11.0 Performed By: #### L100.0500 #### [facility] [address] [place], [place], [address] COMPREHENSIVE METABOLIC Collected: 09/03/2018 Status: F Source: KINJAL PROFIL 5:40 AM [facility] REPOSITORY TYPE CODE TESTS RESULT OUT OF [...] Performed By: #### L500.4050, L501.2300, L501.5200 #### [facility] [address] [place], [place], [id number] PHOSPHORUS Collected: 09/03/2018 Status: F Source: STURGEON 5:40 AM [facility] REPOSITORY TYPE CODE TESTS RESULT OUT OF RANGE REFERENCE UNITS LAB L501.2300 2.5-4.9 mg/dL Normal PHOS 3.2 Performed By: #### L500.4050, L501.2300, L501.5200 #### [facility] [address] [place], [address] MAGNESIUM Collected: 09/03/2018 Status: F Source: KINJAL 5:40 AM [facility] REPOSITORY TYPE CODE TESTS RESULT OUT OF RANGE REFERENCE UNITS LAB L501.5200 1.6-2.6 mg/dL Normal MG 1.7 Performed By: #### L500.4050, L501.2300, L501.5200 #### [facility] [address] [place], [address] BEDSIDE GLUCOSE Collected: 09/03/2018 Status: F Source: KINJAL 12:24 AM [facility] REPOSITORY TYPE CODE TESTS RESULT OUT OF REFERENCE UNITS RANGE LAB L501.080 70-110 mg/dL High BEDSIDE GLU 124 Result Comment: MANAGEMENT OF PATIENT CARE PER NURSING PROTOCOL Performed By: #### L501.080 #### [facility] Point of Care [address] [place] [address] BRAIN WITHOUT Observed: 09/03/2018 Status: F Source: KINJAL CONTRAST 12:00 AM [facility] REPOSITORY [facility] Imaging Services [address] [place] [address] Brain without Contrast MR#: [id number] Acct: [id number] Name: TAMIA PANDA Jennifer Rep #: [id number] : 1955 F 63 From: Zenobia Nunez PCP: Bhupendra Oliveira MD Status: ADM NICOLE Study: Brain without Contrast Date of Exam: 09/03/18 Exam# [id number] Ordering Dr: Cindi Sharif DO STUDY: MRI [...] , CC: Anna Sharif; Bhupendra Oliveira MD Adult Health Clinical Nurse Specialist: Signed TROPONIN-I Collected: 09/02/2018 Status: F Source: STURGEON 9:20 PM [facility] REPOSITORY Order Comment: 'TROP' Serial specimen #1, #2 or #3: 3 TYPE CODE TESTS RESULT OUT OF RANGE REFERENCE UNITS LAB L501.4010 <0.045 ng/mL Normal < 0.015 TROPONIN-I Result Comment: TROPONIN-I EXPECTED VALUES <0.045 Negative 0.045 - 0.590 Consistent with Cardiac Damage > OR = 0.600 Critical Value Not every elevated troponin is indicative of AK. These values should be used with clinical judgement in examining the patient's clinical picture for diagnosis. To establish a diagnosis of AK versus myocardial injury, there must be a demonstrated rise and/or fall in the troponin values, in addition to ischemic symptoms, EKG changes, new regional wall motion abnormality, and/or angiographical evidence. PLEASE NOTE: REFERENCE RANGES EDITED 18 Performed By: #### L501.4010 #### [facility] [place], [address] AMMONIA Collected: 09/02/2018 Status: F Source: STURGEON 5:52 PM [facility] REPOSITORY TYPE CODE TESTS RESULT OUT OF REFERENCE UNITS RANGE LAB L503.5510 11-32 umol/L High AMMONIA 45.0 Performed By: #### L503.5510 #### [facility] [address] [place], [address] HEMOGLOBIN A1C Collected: 09/02/2018 Status: F Source: STURGEON 5:52 PM [facility] REPOSITORY TYPE CODE TESTS RESULT OUT OF RANGE REFERENCE UNITS LAB L501.9985 4.2-6.3 % High HGB A1C 7.4 Performed By: #### L501.9985 #### [facility] [address] [place], [address] MAGNESIUM Collected: 09/02/2018 Status: F Source: STURGEON 5:52 PM [facility] REPOSITORY TYPE CODE TESTS RESULT OUT OF RANGE REFERENCE UNITS LAB L501.5200 1.6-2.6 mg/dL Normal MG 1.8 Performed By: #### L501.5200 #### [facility] [address] [place], [address] TROPONIN-I Collected: 09/02/2018 Status: F Source: STURGEON 5:52 PM [facility] REPOSITORY Order Comment: 'TROP' Serial specimen #1, #2 or #3: 2 TYPE CODE TESTS RESULT OUT OF RANGE REFERENCE UNITS LAB L501.4010 <0.045 ng/mL Normal < 0.015 TROPONIN-I Result Comment: TROPONIN-I EXPECTED VALUES <0.045 Negative 0.045 - 0.590 Consistent with Cardiac Damage > OR = 0.600 Critical Value Not every elevated troponin is indicative of AK. These values should be used with clinical judgement in examining the patient's clinical picture for diagnosis. To establish a diagnosis of AK versus myocardial injury, there must be a demonstrated rise and/or fall in the troponin values, in addition to ischemic symptoms, EKG changes, new regional wall motion abnormality, and/or angiographical evidence. PLEASE NOTE: REFERENCE RANGES EDITED 18 Performed By: #### L501.4010, L501.9520 #### [facility] [address] [place], [address] THYROID STIM HORMONE Collected: 09/02/2018 Status: F Source: KINJAL (TSH) 5:52 PM [facility] REPOSITORY Order Comment: 'TROP' Serial specimen #1, #2 or #3: 2 TYPE CODE TESTS RESULT OUT OF RANGE REFERENCE UNITS LAB L501.9520 0.358-3.74 uIU/mL Normal TSH 0.70 Performed By: #### L501.4010, L501.9520 #### [facility] [address] [facility] [place], [address] BEDSIDE GLUCOSE Collected: 09/02/2018 Status: F Source: STURGEON 5:33 PM [facility] REPOSITORY TYPE CODE TESTS RESULT OUT OF REFERENCE UNITS RANGE LAB L501.080 70-110 mg/dL High BEDSIDE GLU 195 Result Comment: MANAGEMENT OF PATIENT CARE PER NURSING PROTOCOL Performed By: #### L501.080 #### [facility] Point of Care [address] [place] [address] EMERGENCY DEPARTMENT Observed: 09/02/2018 Status: F Source: STURGEON SUMMARY 5:10 PM [facility] REPOSITORY [facility] Medical Records Department [address] [place] [address] Emergency Department Summary 09/02/18 1452 MR#: [id number] Acct: [id number] Name: TAMIA PANDA Rep #: [id number] : 1955 63 From: Anju Gibson MD [...] she would not move she simply would moan Is brought to the emergency department her [...] of diabetes This note was generated with [employer] dictation software. It may contain incorrect words, [...] your Primary Care Provider. Call [facility] ([phone]) or report to the closest Emergency Room. Call 911 if necessary. 09/02/18 1710 <Electronically signed by Anju Gibson MD> Date Anju Gibson MD Cosigner Signature (If Indicated): Date CC: Bhupendra Oliveira MD HISTORY AND PHYSICAL Observed: 09/02/2018 Status: F Source: KINJAL EXAM 5:01 PM [facility] REPOSITORY [facility] Medical Records Department [address] [place] [address] History and Physical 09/02/18 1634 MR#: [id number] Acct: [id number] Name: TAMIA PANDA Rep #: [id number] : 1955 63 From: Cindi Sharif DO PCP: Bhupendra Oliveira MD Status: ADM NICOLE Y Location: [place] [address] Problem List (1) Encephalopathy acute Status: Acute [...] ligation. 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 These and KELLIE morrow for DVT prophylaxis. Continue apixaban for atrial fibrillation Code Visit Inpatient E AND M: 29526 Init Hosp L3 09/02/18 1701 <Electronically signed by Cindi Sharif DO> Date M Emily Sharif DO Cornelio Signature: Date (if applicable) CC: Anna Sharif; Bhupendra Oliveira MD Signed BLOOD GASES BY CPS Collected: 09/02/2018 Status: F Source: KINJAL 4:50 PM [facility] REPOSITORY TYPE CODE TESTS RESULT OUT OF [...] ISTAT 99 Performed By: #### L9000.0800 #### [facility] Point of Care [address] [place] [address] URINALYSIS, COMPLETE Collected: 09/02/2018 Status: F Source: KINJAL 4:15 PM [facility] REPOSITORY Order Comment: Order Date: 09/02/18 OV [...] 0-5 SEEN Performed By: #### L400.0001 #### [facility] [address] [facility] [place], [address] CHEST 1 VIEW Observed: 09/02/2018 Status: F Source: STURGEON (PORTABLE) 2:52 PM [facility] REPOSITORY [facility] Imaging Services [address] [place] [address] Chest 1 View (Portable) MR#: [id number] Acct: [id number] Name: TAMIA PANDA Jennifer Rep #: [id number] : 1955 F 63 From: Bentley Montejo MD PCP: Bhupendra Oliveira MD Status: REG ER Study: Chest 1 View (Portable) Date of Exam: 09/02/18 Exam# [id number] Ordering Dr: Anju Gibson MD STUDY: X-RAY [...] Bentley Montejo MD at 15:14 EST Tel [phone], Service support , CC: MD Eder Gibson; Bhupendra Oliveira MD Adult Health Clinical Nurse Specialist: Signed CTA NECK W/WO Observed: 09/02/2018 Status: F Source: STURGEON CONTRAST 2:43 PM [facility] REPOSITORY [facility] Imaging Services [address] [place] [address] CTA Neck W/WO Contrast MR#: [id number] Acct: [id number] Name: TAMIA PANDA Rep #: [id number] : 1955 F 63 From: Bentley Montejo MD PCP: Bhupendra Oliveira MD Status: REG ER Study: CTA Neck W/WO Contrast Date of Exam: 09/02/18 Exam# [id number] Ordering Dr: Maria Fernanda Moss DO STUDY: [...] There is no demonstrated aneurysm of the [place] of [place]. There is no demonstrated abnormality of the visualized brain. IMPRESSION: Normal [place] without a demonstrated aneurysm or hemodynamically significant stenosis. N.B. : The above information has been verbally conveyed by Bentley Montejo MD to Maria Fernanda Moss DO on 09/02/2018 14:59:45 (ET). Electronically Signed: Bentley Montejo MD at 14:58 EST Tel [phone], Service support , STUDY: CTA NECK WITH [...] Bentley Montejo MD at 15:00 EST Tel [phone], Service support , CC: Bhupendra Oliveira MD; Maria Fernanda Moss DO Adult Health Clinical Nurse Specialist: Signed CTA HEAD W/WO Observed: 09/02/2018 Status: F Source: KINJAL CONTRAST 2:43 PM [facility] REPOSITORY [facility] Imaging Services [address] [place] [address] CTA Head W/WO Contrast MR#: [id number] Acct: [id number] Name: TAMIA PANDA Rep #: [id number] : 1955 F 63 From: Bentley Montejo MD PCP: Bhupendra Oliveira MD Status: REG ER Study: CTA Head W/WO Contrast Date of Exam: 09/02/18 Exam# [id number] Ordering Dr: Maria Fernanda Moss DO STUDY: [...] There is no demonstrated aneurysm of the [place] of [place]. There is no demonstrated abnormality of the visualized brain. IMPRESSION: Normal [place] without a demonstrated aneurysm or hemodynamically significant stenosis. N.B. : The above information has been verbally conveyed by Bentley Montejo MD to Maria Fernanda Moss DO, on 09/02/2018 14:59:45 (ET). Electronically Signed: Bentley Montejo MD at 14:58 EST Tel [phone], Service support , STUDY: CTA NECK WITH [...] Bentley Montejo MD at 15:00 EST Tel [phone], Service support , CC: Bhupendra Oliveira MD; Maria Fernanda Moss DO Adult Health Clinical Nurse Specialist: Signed BRAIN/HEAD WITHOUT Observed: 09/02/2018 Status: F Source: KINJAL CONTRAST 2:41 PM [facility] REPOSITORY [facility] Imaging Services [address] [place] [address] Brain/Head without Contrast MR#: [id number] Acct: [id number] Name: TAMIA PANDA Rep #: [id number] : 1955 F 63 From: Bentley Montejo MD PCP: Bhupendra Oliveira MD Status: REG ER Study: Brain/Head without Contrast Date of Exam: 09/02/18 Exam# [id number] Ordering Dr: Maria Fernanda Moss DO STUDY: [...] Bentley Montejo MD at 15:29 EST Tel [phone], Service support , CC: Bhupendra Oliveira MD; Maria Fernanda Moss DO Adult Health Clinical Nurse Specialist: Signed CBC W/DIFF, AUTOMATED Collected: 09/02/2018 Status: F Source: KINJAL 2:35 PM [facility] REPOSITORY TYPE CODE TESTS RESULT OUT OF [...] Lymph 1.18 Performed By: #### L100.0100 #### [facility] [address] [facility] [place], [address] BASIC METABOLIC Collected: 09/02/2018 Status: F Source: STURGEON PROFILE (BMP) 2:35 PM [facility] REPOSITORY TYPE CODE TESTS RESULT OUT OF [...] 5 Performed By: #### L500.2500, L501.4010 #### [facility] [address] [facility] [place], [address] TROPONIN-I Collected: 09/02/2018 Status: F Source: STURGEON 2:35 PM [facility] REPOSITORY TYPE CODE TESTS RESULT OUT OF RANGE REFERENCE UNITS LAB L501.4010 <0.045 ng/mL Normal < 0.015 TROPONIN-I Result Comment: TROPONIN-I EXPECTED VALUES <0.045 Negative 0.045 - 0.590 Consistent with Cardiac Damage > OR = 0.600 Critical Value Not every elevated troponin is indicative of AK. These values should be used with clinical judgement in examining the patient's clinical picture for diagnosis. To establish a diagnosis of AK versus myocardial injury, there must be a demonstrated rise and/or fall in the troponin values, in addition to ischemic symptoms, EKG changes, new regional wall motion abnormality, and/or angiographical evidence. PLEASE NOTE: REFERENCE RANGES EDITED 18 Performed By: #### L500.2500, L501.4010 #### [facility] [address] [place], [address] BNP,B-TYPE NATRIURETIC Collected: 09/02/2018 Status: F Source: STURGEON PEPTIDE 2:35 PM [facility] REPOSITORY TYPE CODE TESTS RESULT OUT OF RANGE REFERENCE UNITS LAB L503.6620 0-100 pg/mL High B-TYPE 191.0 STONEY PEP Performed By: #### L503.6620 #### [facility] [address] [place], [address] BEDSIDE GLUCOSE Collected: 09/02/2018 Status: F Source: STURGEON 2:29 PM [facility] REPOSITORY TYPE CODE TESTS RESULT OUT OF REFERENCE UNITS RANGE LAB L501.080 70-110 mg/dL High BEDSIDE GLU 169 Result Comment: MANAGEMENT OF PATIENT CARE PER NURSING PROTOCOL Performed By: #### L501.080 #### [facility] Point of Care [address] [place] [address] PROGRESS Observed: 09/01/2018 Status: COMPLETED Source: RELIANCE 3:22 PM [facility] [place] REPOSITORY HNO ID: [id number] Author: Nanda Rodriguez) Brian Service: (none) Author Type: Physician Type: Progress Notes Filed: 09/01/2018 3:33 PM Note Text: Reviewed previous urine culture results. Proteus resistant to macrobid. Will change macrobid to bactrim DS for 5 days. Will call in next 48 hours with urine culture results. PROGRESS Observed: 09/01/2018 Status: COMPLETED Source: RELIANCE 3:21 PM [facility] REPOSITORY HNO ID: [id number] Author: Saad Allen) Larry Service: (none) Author Type: Registered Nurse Type: Progress Notes Filed: 09/01/2018 3:32 PM Note Text: PRIMARY CARE COORDINATION QUICK NOTE Provider Action/FYI FYI Patient identified by name and date . TC to Bree at [facility], states they received Bactrim escript and they have in stock and will deliver tomorrow morning. Saad Silvestre RN September 01, 2018 3:32 PM TC to patient, instructed urine specimen indicates and UTI and PCP wants patient to take Bactrim DS twice daily x 5 days. Informed PCC will call [facility] and have them deliver it today or first thing tomorrow, verbalized understanding. Saad Silvestre RN PROGRESS Observed: 09/01/2018 Status: COMPLETED Source: RELIANCE 1:54 PM [facility] REPOSITORY HNO ID: [id number] Author: Nanda Rodriguez) Brian Service: (none) Author Type: Physician Type: Progress Notes Filed: 09/01/2018 3:33 PM Note Text: UA returned. Positive for WBC, RBC and nitrites which indicates UTI. Start macrobid BID for 5 days. Awaiting urine culture results. PROGRESS Observed: 09/01/2018 Status: COMPLETED Source: RELIANCE 11:54 AM [facility] REPOSITORY HNO ID: [id number] Author: Nanda Rodriguez) Brian Service: (none) Author Type: Physician Type: Progress Notes Filed: 09/01/2018 11:54 AM Note Text: Reviewed. PROGRESS Observed: 09/01/2018 Status: COMPLETED Source: RELIANCE 11:39 AM [facility] REPOSITORY HNO ID: [id number] Author: Saad Allen) Larry Service: (none) Author [...] : YES Spoke to patient Summary: Weight yester Over Reports Dyspnea on moderate exertion (after pt is up a walking a while in home) Moist cough, occasionally expectorating mucous This AM toes and back of feet tight and swollen, no edema in ankles or legs Discussed CHF and COPD Action Plans given at hospital Reinforced need to call when symptoms get to Yellow stage, verbalized understanding. Service Engine Repairer plan for next outreach: Will follow up one week Signature Saad Silvestre RN September 01, 2018 MELCHOR Observed: 09/01/2018 Status: COMPLETED Source: RELIANCE 12:00 AM [facility] REPOSITORY Patient Outreach (FAMPWS) TAMIA PANDA ([id number]) 1955 F Date Time Provider Department 09/01/18 SAAD SILVESTRE (RN) FAMPWS During your visit today, we recorded the following information about you: Saad Silvestre RN 09/01/2018 11:48 AM Signed TRANSITION CARE MANAGEMENT (TCM) FOLLOW-UP NOTE Provider Action/FYI Weight yester Over Reports Dyspnea on moderate exertion (after pt is up a walking a while in home) Moist cough, occasionally expectorating mucous This AM toes and back of feet tight and swollen, no edema in ankles or legs Patient identified by name and date of : YES Spoke to patient Summary: Weight yester Over Reports Dyspnea on moderate exertion (after pt is up a walking a while in home) Moist cough, occasionally expectorating mucous This AM toes and back of feet tight and swollen, no edema in ankles or legs Discussed CHF and COPD Action Plans given at hospital Reinforced need to call when symptoms get to Yellow stage, verbalized understanding. Service Engine Repairer plan for next outreach: Will follow up [...] and date . TC to Bree at [facility], states they received Bactrim escript and they have in stock and will deliver tomorrow morning. Saad Silvestre RN September 01, 2018 3:32 PM TC to patient, instructed urine specimen indicates and UTI and PCP wants patient to take Bactrim DS twice daily x 5 days. Informed PCC will call [facility] and have them deliver it today or [...] Ma - Fully Assessed Reason for Visit: [facility] Follow Up [1827] Cmt: TCM F/U Call Order(s):sulfamethoxazole-trimethoprim (BACTRIM DS) [...] Essential hypertension [I10] Coronary artery disease of suquamish artery of stoney* AF (paroxysmal atrial fibrillation) (HCC) [I48.* COPD (chronic obstructive pulmonary disease) (H* GERD without esophagitis [K21.9] Dysphagia [R13.10] Constipation [K59.00] DM type 2 (diabetes mellitus, type 2) ([facility]) [E1* 02/14/2017 Shortness of breath [R06.02] 02/14/2017 Arthritis [M19.90] More... CHF (congestive heart failure) ([facility]) [I50.9] BPPV (benign paroxysmal positional vertigo) [...] 08/31/2018 Status: F Source: KINJAL 6:30 PM [facility] REPOSITORY Order Comment: How was Urine Obtained? [...] URINE SEEN Performed By: #### L400.0001 #### [facility] [address] [facility] [place], [address] Observed: 08/31/2018 Status: F Source: STURGEON CULTURE, URINE 6:30 PM [facility] REPOSITORY Urine Culture ORGANISM 1: Proteus mirabilis Wilson Count >100,000 Proteus mirabilis: REACTION Amoxacillin/Clavulanic Acid [...] <=20 S (NF) indicates non-formulary drug at [facility]. Approval by Infectious Disease Specialist required before non-formulary drugs may be ordered and/or dispensed. Performed By: #### M100.0650 #### [facility] [address] [place], [address] PROGRESS Observed: 08/28/2018 Status: COMPLETED Source: RELIANCE 1:57 PM [facility] REPOSITORY HNO ID: [id number] Author: Katelyn Churchill Ma Service: (none) Author Type: (none) Type: Progress Notes Filed: 08/28/2018 1:58 PM Note Text: Left detailed message for patient with pcp advice Katelyn Churchill Ma PROGRESS Observed: 08/28/2018 Status: COMPLETED Source: RELIANCE 12:53 PM [facility] [place] REPOSITORY HNO ID: [id number] Author: Nanda Rodriguez) Brian Service: (none) Author Type: Physician Type: Progress Notes Filed: 08/28/2018 12:54 PM Note Text: Reviewed and agree. Recommend OTC stool softener, increased fiber, and adequate hydration as well to keep stools soft and prevent worsening of hemorrhoids. PROGRESS Observed: 08/28/2018 Status: COMPLETED Source: RELIANCE 12:13 PM [facility] REPOSITORY HNO ID: [id number] Author: Saad HarrisonRn) Larry Service: (none) Author Type: Registered Nurse Type: Progress Notes Filed: 08/28/2018 12:25 PM Note Text: PRIMARY CARE COORDINATION QUICK NOTE Provider Action/FYI Pt instructed to use Preparation H per J Podlogar OPERATIONS AND MAINTENANCE TECHNICAN for enlarging hemorrhoids. Patient identified by name [...] pt's need surgery. Instructed per J Podlogar, OPERATIONS AND MAINTENANCE TECHNICAN to use Preparation H faithfully and if they get worse call PCC or PCP, verbalized understanding. PROGRESS Observed: 08/28/2018 Status: COMPLETED Source: RELIANCE 11:47 AM [facility] REPOSITORY HNO ID: [id number] Author: Nanda Rodriguez) Brian Service: (none) Author [...] worsening. PROGRESS Observed: 08/28/2018 Status: COMPLETED Source: RELIANCE 10:59 AM [facility] REPOSITORY HNO ID: [id number] Author: Saad Allen) Larry Service: (none) Author [...] 22 units w/lunch, 24 units w/ dinner Service Engine Repairer plan for next outreach: Will follow up one week Signature Saad Silvestre RN August 28, 2018 PROGRESS Observed: 08/26/2018 Status: COMPLETED Source: RELIANCE 4:14 PM [facility] REPOSITORY HNO ID: [id number] Author: Saad Allen) Larry Service: (none) Author [...] Silvestre RN August 26, 2018 4:07 PM LMTOABBYCH Observed: 08/26/2018 Status: COMPLETED Source: RELIANCE 12:00 AM [facility] REPOSITORY Patient Outreach (FAMPWS) TAMIA PANDA ([id number]) 1955 F Date Time Provider Department 08/26/18 [facility] During your visit today, we recorded the [...] 22 units w/lunch, 24 units w/ dinner Service Engine Repairer plan for next outreach: Will follow up [...] to use Preparation H per J Podlogar OPERATIONS AND MAINTENANCE TECHNICAN for enlarging hemorrhoids. Patient identified by name [...] pt's need surgery. 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 CHF (congestive heart failure) ([facility]) [I50.9] BPPV (benign paroxysmal positional vertigo) [...] 08/28/18 PROGRESS Observed: 08/21/2018 Status: COMPLETED Source: RELIANCE 1:04 PM [facility] REPOSITORY HNO ID: [id number] Author: Saad Davenport Service: (none) Author Type: Electronic Systems Security Assessment Type: Progress Notes Filed: 08/21/2018 1:05 PM Note Text: Mailed letter to the patient regarding diabetic eye exam. Saad Davenport MA PROGRESS Observed: 08/21/2018 Status: COMPLETED Source: RELIANCE 1:03 PM [facility] REPOSITORY HNO ID: [id number] Author: Saad Davenport Service: (none) Author Type: Electronic Systems Security Assessment Type: Progress Notes Filed: 08/21/2018 1:05 PM Note Text: [facility] CARE GAP REGISTRY DOCUMENTATION (OUTSIDE [...] LEAD ELECTROCARDIOGRAM Observed: 08/21/2018 Status: F Source: STURGEON 9:08 AM [facility] REPOSITORY [facility] Cardiovascular Services [address] [place] [id number] 12 Lead EKG 08/05/18 1331 MR#: [id number] Acct: [id number] Name: TAMIA PANDA Rep #: [id number] : 1955 63 From: Bart Blas MD Attending Dr: Zuhair Cohn DO Status: DIS NICOLE Ordering Dr: Lynne Mccann MD Date: 08/05/18 Location: [facility] Sex: F C Admitted: 08/05/18 Test Reason [...] Abnormal ECG Confirmed by BART BLAS MD ([id number]), state editor SHYANNE TERRAZAS ([id number]) on 08/07/2018 3:21:29 PM Referred By: JANNIE Confirmed By:BART BLAS MD 08/07/18 152 Date Bart Blas MD CC: Bhupendra Oliveira MD; Zuhair Mccann MD Signed 12 LEAD ELECTROCARDIOGRAM Observed: 08/21/2018 Status: F Source: STURGEON 9:08 AM [facility] REPOSITORY [facility] Cardiovascular Services [address] [place] [address] 12 Lead EKG 08/05/18 1434 MR#: [id number] Acct: [id number] Name: TAMIA PANDA Jennifer Rep #: [id number] : 1955 63 From: Bart Blas MD Attending Dr: Zuhair Cohn DO Status: DIS NICOLE Ordering Dr: Lynne Mccann MD Date: 08/05/18 Location: [facility] Sex: F C Admitted: 08/05/18 Test Reason [...] Abnormal ECG Confirmed by BART BLAS MD ([id number]), state editor SHYANNE TERRAZAS ([id number]) on 08/07/2018 3:21:48 PM Referred By: MELISA Confirmed By:BART BLAS MD 08/07/18 152 Date Bart Blas MD CC: Bhupendra Oliveira MD; Zuhair Mccann MD Signed CNPTOUTREACH Observed: 08/21/2018 Status: COMPLETED Source: RELIANCE 12:00 AM [facility] REPOSITORY Patient Outreach (FAMPWS) TAMIA PANDA ([id number]) 1955 F Date Time Provider Department 08/21/18 SAAD DAVENPORT) FAMPWS During your visit today, we recorded the following information about you: Saad Davenport MA 08/21/2018 1:05 PM Signed [facility] CARE GAP REGISTRY DOCUMENTATION (OUTSIDE [...] Assessed Reason for Visit: PHMA/Care Gap Outreach [6951] Cmt: eye exam Prescriptions as of 08/21/2018 [...] [I25.10] INVALID FOR* Diabetes mellitus, type II ([facility]) [E11.9] INVALID FOR* Morbid obesity ([facility]) [E66.01] Hypothyroidism [E03.9] Anxiety [F41.9] Sleep apnea [G47.30] 02/14/2017 Essential hypertension [I10] 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 CHF (congestive heart failure) ([facility]) [I50.9] BPPV (benign paroxysmal positional vertigo) [...] BMI 35-39.9 [E66.9] INVALID FOR* Letter Text [place] [facility] Nanda Oliveira MD [address] [phone] Dear Tamia Panda Your health care is [...] 08/21/18 PROGRESS Observed: 08/17/2018 Status: COMPLETED Source: RELIANCE 3:53 PM [facility] REPOSITORY HNO ID: [id number] Author: Nanda Rodriguez) Brian Service: (none) Author Type: Physician Type: Progress Notes Filed: 08/17/2018 6:14 PM Note Text: Chief Complaint No chief complaint on file. HPI Tamia Panda is a 63 year old female who presents here today for Hospital Discharge Follow up. Admitted to [facility] from 08/05 to 08/06 with altered mental status. TCM note below in bold. TRANSITION CARE MANAGEMENT (TCM) INITIAL CONTACT ? ? Provider Action/FYI: ? Metformin and cardizem D/C'd by [facility] (due to Bradycardia and Hypoglycemia) ? ? Initial contact with patient post discharge, spoke to patient. Patient identified by name and . ? TRANSITION CARE MANAGEMENT: Date of Outreach: 08/07/2018 07/28/2018 Outreach Attempt 1: Contact Made Contact Made Date of Discharge 08/06/2018 07/26/2018 Some recent data might be hidden ? SUMMARY: -Pt discharged from [facility] on 08/06. -Follow up appointment on 08/14. -Medication review done: no, but TC derik Lopez at [facility] to inform metformin and cardizem D/C'd at discharge from [facility], verbalized understanding, they will send someone out to remove medications from dose pack. -Admitted for: Toxic Encephalopathy (Acute) Bradycardia (Acute) ? CONCERNS: Informed pt PCP called in tessalon perles to [facility] for cough. Noted moist cough [...] was also seen in the ED at [facility] on 08/13 for complaint of SOB and [place] Delivery from [facility] will bring it out to house tomorrow. [...] chronic obstructive pulmonary disease with respiratory failure ([facility]) - AF (paroxysmal atrial fibrillation) ([facility]) - Anxiety - Arthritis Seeing Dr Elliott - Cervical cancer ([facility]) hysterectomy - CHF (congestive heart failure) ([facility]) - Chronic back pain Seeing Dr. Wallace - Constipation - COPD (chronic obstructive pulmonary disease) ([facility]) DME Kurt for BiPAP and [facility] [place] for O2. - Coronary atherosclerosis of suquamish coronary artery Previously seeing Dr. Sosa - DDD (degenerative disc disease), lumbar - DM type 2 (diabetes mellitus, type 2) ([facility]) Seeing Dr. Foley for podiatry - DVT (deep venous thrombosis) ([facility]) Post op INA, BSO. - Dysphagia Seeing Dr. Beaulieu - Emphysema lung ([facility]) - Essential hypertension - Functional dyspepsia - Gastroparesis 2016 mild - GERD without esophagitis - Headache - History of colon polyps 11/28/2016 - Hyperlipidemia - Hypothyroidism - Incontinence Seeing Dr. Chapman - Lung nodule 02/[address] in 3 months - Morbid obesity ([facility]) - Muscle weakness - Nausea - PARESH on CPAP DME Kurt for BiPAP and [facility] [place] for O2. - PE (pulmonary thromboembolism) ([facility]) Post op INA/BSO. 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 Social History Main Topics [...] MD CNOV Observed: 08/17/2018 Status: COMPLETED Source: RELIANCE 3:40 PM [facility] REPOSITORY Office Visit (FAMPWS) TAMIA PANDA ([id number]) 1955 F Date Time Provider Department 08/17/18 3:40 PM NANDA OLIVEIRA) FAMPWS During your visit today, we recorded the following information about you: Temperature Pulse Respiration Blood pressure 97.5 degrees 72/minute 14/minute 110/70 Nanda Oliveira MD 08/17/2018 6:14 PM Signed Chief Complaint No chief complaint on file. ESA Tamialinn Panda is a 63 year old female who presents here today for Hospital Discharge Follow up. Admitted to [facility] from 08/05 to 08/06 with altered mental status. TCM note below in bold. TRANSITION CARE MANAGEMENT (TCM) INITIAL CONTACT ? ? Provider Action/FYI: ? Metformin and cardizem D/C'd by [facility] (due to Bradycardia and Hypoglycemia) ? ? Initial contact with patient post discharge, spoke to patient. Patient identified by name and . ? TRANSITION CARE MANAGEMENT: Date of Outreach: 08/07/2018 07/28/2018 Outreach Attempt 1: Contact Made Contact Made Date of Discharge 08/06/2018 07/26/2018 Some recent data might be hidden ? SUMMARY: -Pt discharged from [facility] on 08/06. -Follow up appointment on 08/14. -Medication review done: no, but TC to Jessica at [facility] to inform metformin and cardizem D/C'd at discharge from [facility], verbalized understanding, they will send someone out [...] was also seen in the ED at [facility] on 08/13 for complaint of SOB and [...] [place] Delivery from [facility] will bring it out to house tomorrow. [...] failure (HCC) - AF (paroxysmal atrial fibrillation) ([facility]) - Anxiety - Arthritis Seeing Dr Elliott - Cervical cancer ([facility]) hysterectomy - CHF (congestive heart failure) ([facility]) - Chronic back pain Seeing Dr. Wallace - Constipation - COPD (chronic obstructive pulmonary disease) ([facility]) AISHA Kirk for BiPAP and [facility] [place] for O2. - Coronary atherosclerosis of suquamish coronary artery Previously seeing Dr. Sosa - DDD (degenerative disc disease), lumbar - DM type 2 (diabetes mellitus, type 2) ([facility]) Seeing Dr. Foley for podiatry - DVT (deep venous thrombosis) (HCC) Post op INA, BSO. - Dysphagia Seeing Dr. Beaulieu - Emphysema lung ([facility]) - Essential hypertension - Functional dyspepsia - Gastroparesis 2017 mild - GERD without esophagitis - Headache - History of colon polyps 11/28/2016 - Hyperlipidemia - Hypothyroidism - Incontinence Seeing Dr. Chapman - Lung nodule 02/[address] in 3 months - Morbid obesity ([facility]) - Muscle weakness - Nausea - PARESH on CPAP [facility] for BiPAP and [facility] for O2. 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 Social History Main Topics [...] months. Nanda Oliveira MD Referring Provider: NANDA OLIVEIRA () [[id number]] Allergies As of Date: 08/17/2018 Noted Allergy [...] COMPOUNDED PRESCRIPTION Please fit for BiPAP mask. 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 CHF (congestive heart failure) ([facility]) [I50.9] BPPV (benign paroxysmal positional vertigo) [...] EMERGENCY DEPARTMENT Observed: 08/13/2018 Status: F Source: STURGEON SUMMARY 10:06 PM [facility] REPOSITORY [facility] Medical Records Department [address] [address] Emergency Department Summary 08/13/18 6194 MR#: [id number] Acct: [id number] Name: TAMIA PANDA Rep #: [id number] : 1955 63 From: Eleazar Brooks MD [...] to above This note was generated with [employer] dictation software. It may contain incorrect words, [...] problems, contact your Primary Care Provider. Call [email or web address] [facility] ([phone]) or report to the closest Emergency Room. Call 911 if necessary. 08/13/188 <Electronically signed by Eleazar Brooks MD> Date Eleazar Brooks MD Cosigner Signature (If Indicated): Date CC: Bhupendra Oliveira MD CBC W/DIFF, AUTOMATED Collected: 08/13/2018 Status: F Source: KINJAL 7:05 PM [facility] REPOSITORY TYPE CODE TESTS RESULT OUT OF [...] Lymph 0.80 Performed By: #### L100.0100 #### [facility] [address] [place] [address]. [place], [place], [id number] BASIC METABOLIC Collected: 08/13/2018 Status: F Source: STURGEON PROFILE (BMP) 7:05 PM [facility] REPOSITORY TYPE CODE TESTS RESULT OUT OF [...] GAP 2 Performed By: #### L500.2500 #### [facility] [address] [facility] [place], [address] CHEST PA AND LATERAL Observed: 08/13/2018 Status: F Source: STURGEON 6:53 PM [facility] REPOSITORY [facility] Imaging Services [address] [place] [address] Chest PA and Lateral MR#: [id number] Acct: [id number] Name: TAMIA PANDA Rep #: [id number] : 1955 F 63 From: Leonides Wilburn DO PCP: Bhupendra Oliveira MD Status: REG ER Study: Chest PA and Lateral Date of Exam: 08/13/18 Exam# [id number] Ordering Dr: Eleazar Brooks MD STUDY: X-RAY [...] CC: Bhupendra Oliveira MD; Eleazar Brooks MD Adult Health Clinical Nurse Specialist: Signed URINALYSIS, ROUTINE Collected: 08/12/2018 Status: F Source: KINJAL (DIPSTICK) 8:10 AM [facility] REPOSITORY Order Comment: How was Urine Obtained? [...] High LEUK ESTERASE 500 Performed By: #### L400.2010 #### [facility] [address] [place], [address] Observed: 08/12/2018 Status: F Source: STURGEON CULTURE, URINE 8:10 AM [facility] REPOSITORY Urine Culture ORGANISM 1: Proteus mirabilis Wilson Count >100,000 Proteus mirabilis: REACTION Amoxacillin/Clavulanic Acid [...] <=20 S (NF) indicates non-formulary drug at [facility]. Approval by Infectious Disease Specialist required before non-formulary drugs may be ordered and/or dispensed. Performed By: #### M100.0650 #### [facility] [address] [place], [place], [address] PROGRESS Observed: 08/07/2018 Status: COMPLETED Source: RELIANCE 5:06 PM [facility] REPOSITORY HNO ID: [id number] Author: Nanda Rodriguez) Brian Service: (none) Author Type: Physician Type: Progress Notes Filed: 08/07/2018 5:06 PM Note Text: Reviewed. PROGRESS Observed: 08/07/2018 Status: COMPLETED Source: RELIANCE 4:26 PM [facility] REPOSITORY HNO ID: [id number] Author: Saad Allen) Larry Service: (none) Author Type: Registered Nurse Type: Progress Notes Filed: 08/07/2018 4:29 PM Note Text: PRIMARY CARE COORDINATION QUICK NOTE Provider Action/FYI FYI Patient identified by name and date . TC from Charley for [facility], states they are concerned about patient's home situation. However, pt refuses to agree to a restraining order so there isn't anything police or APS can do. Informed there were issues with both son's living at patient's apartment before and pt ended up being evicted. PCC informed pt that she may lose her [employer] Housing voucher if son's continue to live with her. Pt said previously that she tried to get John to leave but he wouldn't and he would bring women over to spend the night. Saad Silvestre RN PROGRESS Observed: 08/07/2018 Status: COMPLETED Source: RELIANCE 3:37 PM [facility] [place] REPOSITORY HNO ID: [id number] Author: Saad (Nina) Larry Service: (none) Author Type: Registered Nurse Type: Progress Notes Filed: 08/07/2018 3:54 PM Note Text: TRANSITION CARE MANAGEMENT (TCM) INITIAL CONTACT Provider Action/FYI: Metformin and cardizem D/C'd by [facility] (due to Bradycardia and Hypoglycemia) Initial contact with patient post discharge, spoke to patient. Patient identified by name and . TRANSITION CARE MANAGEMENT: Date of Outreach: 08/07/2018 07/28/2018 Outreach Attempt 1: Contact Made Contact Made Date of Discharge 08/06/2018 07/26/2018 Some recent data might be hidden SUMMARY: -Pt discharged from [facility] on 08/06. -Follow up appointment on 08/14. -Medication review done: no, but TC to Jessica at [facility] to inform metformin and cardizem D/C'd at discharge from [facility], verbalized understanding, they will send someone out [...] is what she had taken. TC to nurseLauren, left message asking if pt had low [...] PM MELCHOR Observed: 08/07/2018 Status: COMPLETED Source: RELIANCE 12:00 AM [facility] REPOSITORY Patient Outreach (FAMPWS) TAMIA PANDA ([id number]) 1955 F Date Time Provider Department 08/07/18 SAAD SILVESTRE (NINA) KENDRICKWS During your visit today, we recorded the following information about you: Saad Silvestre RN 08/07/2018 3:54 PM Signed TRANSITION CARE MANAGEMENT (TCM) INITIAL CONTACT Provider Action/FYI: Metformin and cardizem D/C'd by [facility] (due to Bradycardia and Hypoglycemia) Initial contact with patient post discharge, spoke to patient. Patient identified by name and . TRANSITION CARE MANAGEMENT: Date of Outreach: 08/07/2018 07/28/2018 Outreach Attempt 1: Contact Made Contact Made Date of Discharge 08/06/2018 07/26/2018 Some recent data might be hidden SUMMARY: -Pt discharged from [facility] on 08/06. -Follow up appointment on 08/14. 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 CHF (congestive heart failure) ([facility]) [I50.9] BPPV (benign paroxysmal positional vertigo) [...] DISCHARGE SUMMARY Observed: 08/06/2018 Status: F Source: STURGEON 12:05 PM [facility] REPOSITORY [facility] Medical Records Department [address] [place] [address] [place] [address] Discharge Summary 08/06/18 1159 MR#: [id number] Acct: [id number] Name: TAMIA PANDA Rep #: [id number] : 1955 63 From: Zuhair Cohn DO PCP: Bhupendra Oliveira MD Status: ADM IN Y Location: [place] [address] Discharge Date and Diagnosis - Problem List [...] Bentley Montejo MD at 15:12 EST Tel [phone], Service support , Chest X-Ray 08/05/18 13:17 IMPRESSION: Findings suggest a mild degree of CHF with a possible scarring in the right lower lobe. Electronically Signed: Bentley Montejo MD at 13:55 EST Tel [phone], Service support , Operations: None Procedures: None [...] applicable Code Visit OBSV E AND M: 22876 Observation care discharge 08/06/18 1205 <Electronically signed by Zuhair Cohn DO> Date Zuhair Cohn DO Cosigner Signature (if applicable): Date CC: Bhupendra Oliveira MD; Zuhair Cohn DO Signed DISCHARGE INSTRUCTION Observed: 08/06/2018 Status: F Source: KINJAL 11:59 AM [facility] REPOSITORY [facility] Medical Records Department [address] [place] [address] Instructions for Home/Discharge Instructions 08/06/18 1158 MR#: [id number] Acct: [id number] Name: TAMIA PANDA Rep #: [id number] : 1955 63 From: Zuhair Cohn DO [...] 08/06/2018 Status: F Source: KINJAL 11:40 AM [facility] REPOSITORY TYPE CODE TESTS RESULT OUT OF REFERENCE UNITS RANGE LAB L501.080 70-110 mg/dL High BEDSIDE GLU 248 Result Comment: MANAGEMENT OF PATIENT CARE PER NURSING PROTOCOL Performed By: #### L501.080 #### [facility] Point of Care [address] [place], [place] [address] BEDSIDE GLUCOSE Collected: 08/06/2018 Status: F Source: KINJAL 3:46 AM [facility] REPOSITORY TYPE CODE TESTS RESULT OUT OF REFERENCE UNITS RANGE LAB L501.080 70-110 mg/dL High BEDSIDE GLU 113 Result Comment: MANAGEMENT OF PATIENT CARE PER NURSING PROTOCOL Performed By: #### L501.080 #### [facility] Point of Care [address] [place] [address] BEDSIDE GLUCOSE Collected: 08/05/2018 Status: F Source: STURGEON 9:33 PM [facility] REPOSITORY TYPE CODE TESTS RESULT OUT OF REFERENCE UNITS RANGE LAB L501.080 70-110 mg/dL High BEDSIDE GLU 127 Result Comment: MANAGEMENT OF PATIENT CARE PER NURSING PROTOCOL Performed By: #### L501.080 #### [facility] Point of Care [address] [place] [address] BEDSIDE GLUCOSE Collected: 08/05/2018 Status: F Source: STURGEON 9:14 PM [facility] REPOSITORY TYPE CODE TESTS RESULT OUT OF REFERENCE UNITS RANGE LAB L501.080 70-110 mg/dL Low BEDSIDE GLU 66 Result Comment: MANAGEMENT OF PATIENT CARE PER NURSING PROTOCOL Performed By: #### L501.080 #### [facility] Point of Care [address] [place] [address] EMERGENCY DEPARTMENT Observed: 08/05/2018 Status: F Source: STURGEON SUMMARY 5:53 PM [facility] REPOSITORY [facility] Medical Records Department [address] [place], [place] [address] [address] Emergency Department Summary 08/05/18 1319 MR#: [id number] Acct: [id number] Name: TAMIA PANDA Rep #: [id number] : 1955 63 From: Lynne Mccann MD [...] Bentley Montejo MD at 15:12 EST Tel [phone], Service support , Chest X-Ray 08/05/18 13:17 IMPRESSION: Findings suggest a mild degree of CHF with a possible scarring in the right lower lobe. Electronically Signed: Bentley Montejo MD at 13:55 EST Tel [phone], Service support , Medications Given Discontinued Medications [...] noninvasive ventilation This note was generated with Dragon dictation software. It may contain incorrect words, spelling, and punctuation that were not noted in review of the chart prior to signing ED Disposition - Plan for ED Patient: Disposition: Acute Care Hospital [facility] Chief Complaint: Alt LOC What to do if you have Problems For any increased pain, shortness of breath, bleeding, nausea or vomiting, chest pain, or any unexpected problems, contact your Primary Care Provider. Call [facility] ([phone]) or report to the closest Emergency Room. Call 911 if necessary. 08/05/18 1753 <Electronically signed by Lynne Mccann MD> Date Lynne Mccann MD Cosigner Signature (If Indicated): Date CC: Bhupendra Oliveira MD BEDSIDE GLUCOSE Collected: 08/05/2018 Status: F Source: STURGEON 5:25 PM [facility] REPOSITORY TYPE CODE TESTS RESULT OUT OF RANGE REFERENCE UNITS LAB L501.080 70-110 mg/dL Normal BEDSIDE GLU 87 Result Comment: MANAGEMENT OF PATIENT CARE PER NURSING PROTOCOL Performed By: #### L501.080 #### [facility] Point of Care [address] [facility] [place] [address] HISTORY AND PHYSICAL Observed: 08/05/2018 Status: F Source: STURGEON EXAM 3:58 PM [facility] REPOSITORY [facility] Medical Records Department [address] [place] [address] History and Physical 08/05/18 1548 MR#: [id number] Acct: [id number] Name: STEVIE PANDAKarson Rodriguez Rep #: [id number] : 1955 63 From: Zuhair Cohn DO PCP: Bhupendra Oliveira MD Status: ADM IN Location: [place] [address] Problem List (1) Mental status alteration Status: [...] ligation. 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 Smoking Status: Former smoker Tobacco Use: [...] Bentley Montejo MD at 15:12 EST Tel [phone], Service support , Chest X-Ray 08/05/18 13:17 IMPRESSION: Findings suggest a mild degree of CHF with a possible scarring in the right lower lobe. Electronically Signed: Bentley Montejo MD at 13:55 EST Tel [phone], Service support , Assessment/Plan All Active Problems [...] Eliquis Code Visit OBSV E AND M: 89988 Initial observation care L3 08/05/18 1558 <Electronically signed by Zuhair Cohn DO> Date Zuhair Cohn DO Cosigner Signature: Date (if applicable) CC: Bhupendra Oliveira MD; Zuhair Cohn DO Signed BEDSIDE GLUCOSE Collected: 08/05/2018 Status: F Source: KINJAL 3:20 PM [facility] REPOSITORY TYPE CODE TESTS RESULT OUT OF REFERENCE UNITS RANGE LAB L501.080 70-110 mg/dL Low BEDSIDE GLU 68 Result Comment: MANAGEMENT OF PATIENT CARE PER NURSING PROTOCOL Performed By: #### L501.080 #### [facility] Point of Care [address] [place] [address] BLOOD GASES BY CPS Collected: 08/05/2018 Status: F Source: KINJAL 2:33 PM [facility] REPOSITORY TYPE CODE TESTS RESULT OUT OF [...] ISTAT 97 Performed By: #### L9000.0800 #### [facility] Point of Care [address] [place], [place] [address] URINE DRUG SCREEN Collected: 08/05/2018 Status: F Source: KINJAL (CATHY) 2:17 PM [facility] REPOSITORY Order Comment: Has pt arrived? Y [...] Normal NEGATIVE Performed By: #### L505.5000 #### [facility] [place], [address] URINALYSIS, COMPLETE Collected: 08/05/2018 Status: F Source: KINJAL 2:17 PM [facility] REPOSITORY Order Comment: Has pt arrived? Y [...] URINE SEEN Performed By: #### L400.0001 #### [facility] [address] [place], [address] Observed: 08/05/2018 Status: F Source: STURGEON CULTURE, URINE 2:17 PM [facility] REPOSITORY Has pt arrived? Y Urine Culture Culture exhibits no growth. Performed By: #### M100.0650 #### [facility] [address] [place], [place], [address] BEDSIDE GLUCOSE Collected: 08/05/2018 Status: F Source: STURGEON 2:06 PM [facility] REPOSITORY TYPE CODE TESTS RESULT OUT OF RANGE REFERENCE UNITS LAB L501.080 70-110 mg/dL Normal BEDSIDE GLU 104 Result Comment: MANAGEMENT OF PATIENT CARE PER NURSING PROTOCOL Performed By: #### L501.080 #### [facility] Point of Care [address] [place], [place] [address] PROGRESS Observed: 08/05/2018 Status: COMPLETED Source: RELIANCE 1:58 PM [facility] [place] REPOSITORY HNO ID: [id number] Author: Saad (Rn) Larry Service: (none) Author Type: Registered Nurse Type: Progress Notes Filed: 08/07/2018 4:26 PM Note Text: TRANSITION CARE MANAGEMENT (TCM) FOLLOW-UP NOTE Provider Action/FYI FYI Verbally informed PCP about tramadol concerns Patient identified by name and date of : YES Spoke to sisterIvy and [facility] ER nurse, Jossy Summary: TC to Jossy ER nurse, informed [...] me. TC to Jossy, ER nurse at [facility], informed pt's son John Garza may come [...] but Tamia refuses to agree to one. Service Engine Repairer plan for next outreach: Will follow up at discharge Signature Saad Silvestre RN August 05, 2018 Observed: 08/05/2018 Status: F Source: KINJAL CULTURE, BLOOD (WB) 1:53 PM [facility] REPOSITORY No growth in 5 days. Performed By: #### M200.1000 #### [facility] [address] [place], [address] LACTIC ACID Collected: 08/05/2018 Status: F Source: KINJAL 1:35 PM [facility] REPOSITORY Order Comment: Yes/No query for Sepsis Lactate Rule Y TYPE CODE TESTS RESULT OUT OF RANGE REFERENCE UNITS LAB L503.6005 0.4-2.0 mmol/L Normal LACTIC ACID 1.7 Performed By: #### L503.6005 #### [facility] [address] [place], [address] Observed: 08/05/2018 Status: F Source: KINJAL CULTURE, BLOOD (WB) 1:35 PM [facility] REPOSITORY BC No growth in 5 days. Performed By: #### M200.1000 #### [facility] [address] [place], [address] BEDSIDE GLUCOSE Collected: 08/05/2018 Status: F Source: KINJAL 1:32 PM [facility] REPOSITORY TYPE CODE TESTS RESULT OUT OF REFERENCE UNITS RANGE LAB L501.080 70-110 mg/dL Low BEDSIDE GLU 58 Result Comment: MANAGEMENT OF PATIENT CARE PER NURSING PROTOCOL Performed By: #### L501.080 #### [facility] Point of Care [address] [place], [place] [address] CHEST 1 VIEW Observed: 08/05/2018 Status: F Source: KINJAL (PORTABLE) 1:19 PM [facility] REPOSITORY [facility] Imaging Services [address] [place] [address] Chest 1 View (Portable) MR#: [id number] Acct: [id number] Name: TAMIA PANDA Rep #: [id number] : 1955 F 63 From: Bentley Montejo MD PCP: Bhupendra Oliveira MD Status: REG ER Study: Chest 1 View (Portable) Date of Exam: 08/05/18 Exam# [id number] Ordering Dr: Lynne Mccann MD STUDY: X-RAY [...] Bentley Montejo MD at 13:55 EST Tel [phone], Service support , CC: Bhupendra Oliveira MD; Lynne Mccann MD Adult Health Clinical Nurse Specialist: Signed BRAIN/HEAD WITHOUT Observed: 08/05/2018 Status: F Source: STURGEON CONTRAST 1:19 PM [facility] REPOSITORY [facility] Imaging Services [address] [place] [address] Brain/Head without Contrast MR#: [id number] Acct: [id number] Name: TAMIA PANDA Rep #: [id number] : 1955 F 63 From: Bentley Montejo MD PCP: Bhupendra Oliveira MD Status: REG ER Study: Brain/Head without Contrast Date of Exam: 08/05/18 Exam# [id number] Ordering Dr: Lynne Mccann MD STUDY: CT [...] Bentley Montejo MD at 15:12 EST Tel [phone], Service support , CC: Bhupendra Oliveira MD; Lynne Mccann MD Adult Health Clinical Nurse Specialist: Signed CBC W/DIFF, AUTOMATED Collected: 08/05/2018 Status: F Source: KINJAL 1:05 PM [facility] REPOSITORY TYPE CODE TESTS RESULT OUT OF [...] Lymph 0.94 Performed By: #### L100.0100 #### [facility] [address] [facility] [place], [place], [address] PROTHROMBIN TIME W/INR Collected: 08/05/2018 Status: F Source: STURGEON 1:05 PM [facility] REPOSITORY TYPE CODE TESTS RESULT OUT OF RANGE REFERENCE UNITS LAB L300.4150 11.7-14.9 SECONDS Normal PROTIME 14.6 LAB L300.4200 Normal INR 1.1 Performed By: #### L300.3900, L300.4310 #### [facility] [address] [place], [place], [address] PARTIAL THROMBOPLAST Collected: 08/05/2018 Status: F Source: [facility] 1:05 PM [facility] REPOSITORY TYPE CODE TESTS RESULT OUT OF RANGE REFERENCE UNITS LAB L300.4310 24.1-36.2 Seconds Normal PTT 32.4 Performed By: #### L300.3900, L300.4310 #### [facility] [address] [place], [place], [address] COMPREHENSIVE METABOLIC Collected: 08/05/2018 Status: F Source: STURGEON PROFIL 1:05 PM [facility] REPOSITORY TYPE CODE TESTS RESULT OUT OF [...] 5 Performed By: #### L500.4050, L501.4010 #### [facility] [address] [place], [address] TROPONIN-I Collected: 08/05/2018 Status: F Source: STURGEON 1:05 PM [facility] REPOSITORY TYPE CODE TESTS RESULT OUT OF RANGE REFERENCE UNITS LAB L501.4010 <0.045 ng/mL Normal < 0.015 TROPONIN-I Result Comment: TROPONIN-I EXPECTED VALUES <0.045 Negative 0.045 - 0.590 Consistent with Cardiac Damage > OR = 0.600 Critical Value Not every elevated troponin is indicative of AK. These values should be used with clinical judgement in examining the patient's clinical picture for diagnosis. To establish a diagnosis of AK versus myocardial injury, there must be a demonstrated rise and/or fall in the troponin values, in addition to ischemic symptoms, EKG changes, new regional wall motion abnormality, and/or angiographical evidence. PLEASE NOTE: REFERENCE RANGES EDITED 18 Performed By: #### L500.4050, L501.4010 #### [facility] [address] [facility] [place], [address] ALCOHOL, BLOOD Collected: 08/05/2018 Status: F Source: STURGEON (MEDICAL)-SERUM 1:05 PM [facility] REPOSITORY TYPE CODE TESTS RESULT OUT OF [...] fatal coma Performed By: #### L501.9100 #### [facility] [address] [facility] [place], [address] BNP,B-TYPE NATRIURETIC Collected: 08/05/2018 Status: F Source: KINJAL PEPTIDE 1:05 PM [facility] REPOSITORY TYPE CODE TESTS RESULT OUT OF RANGE REFERENCE UNITS LAB L503.6620 0-100 pg/mL High B-TYPE 158.4 STONEY PEP Performed By: #### L503.6620 #### [facility] [address] [facility] [place], [address] CNPTOUTREACH Observed: 08/05/2018 Status: COMPLETED Source: RELIANCE 12:00 AM [facility] REPOSITORY [facility] TAMIA PANDA ([id number]) 1955 F Date Time Provider Department 08/05/18 SAAD SILVESTRE (NINA) CIERA During your visit today, we recorded the following information about you: Saad Silvestre RN 08/07/2018 4:26 PM Signed TRANSITION CARE MANAGEMENT (TCM) FOLLOW-UP NOTE Provider Action/FYI FYI Verbally informed PCP about tramadol concerns Patient identified by name and date of : YES Spoke to sisterIvy and [facility] ER nurse, Jossy Summary: TC to Jossy ER nurse, informed [...] me. TC to Jossy ER nurse at [facility], informed pt's son John Garza may come [...] but Tamia refuses to agree to one. Service Engine Repairer plan for next outreach: Will follow up at discharge Signature Saad Silvestre RN August 05, 2018 Saad Silvestre RN 08/07/2018 4:29 PM Signed PRIMARY CARE COORDINATION QUICK NOTE Provider Action/FYI FYI Patient identified by name and date . TC from Nacho LOZANOica for [facility], states they are concerned about patient's home [...] Simmons - Fully Assessed Reason for Visit: Machine Baster Chronic Care [8682] Prescriptions as of 08/05/2018 Sig: ELIQUIS 2.5 [...] COMPOUNDED PRESCRIPTION Please fit for BiPAP mask. 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 CHF (congestive heart failure) ([facility]) [I50.9] BPPV (benign paroxysmal positional vertigo) [...] 08/07/18 PROGRESS Observed: 08/03/2018 Status: COMPLETED Source: RELIANCE 1:04 PM [facility] [place] REPOSITORY HNO ID: [id number] Author: Chris Oconnell Service: (none) Author Type: [...] She gets rides to medical appointments from [employer]. She states that she is frustrated that [...] (HCC) hysterectomy - CHF (congestive heart failure) ([facility]) - Chronic back pain Seeing Dr. Wallace - Constipation - COPD (chronic obstructive pulmonary disease) ([facility]) DME [facility] for BiPAP and [facility] [place] for O2. - Coronary atherosclerosis of suquamish coronary artery Previously seeing Dr. Sosa - DDD (degenerative disc disease), lumbar - DM type 2 (diabetes mellitus, type 2) ([facility]) Seeing Dr. Foley for podiatry - DVT (deep venous thrombosis) ([facility]) Post op INA, BSO. - Dysphagia Seeing Dr. Beaulieu - Emphysema lung ([facility]) - Essential hypertension - Functional dyspepsia - Gastroparesis 2017 mild - GERD without esophagitis - Headache - History of colon polyps 11/28/2016 - Hyperlipidemia - Hypothyroidism - Incontinence Seeing Dr. Chapman - Lung nodule 02/[address] in 3 months - Morbid obesity ([facility]) - Muscle weakness - Nausea - PARESH on CPAP DME [facility] for BiPAP and [facility] [place] for O2. - PE (pulmonary thromboembolism) ([facility]) Post op INA/BSO. - Pneumonia - [...] daily. ULTICARE PEN NEEDLE 31 gauge x /16 ndle USE DIRECTED. 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 Social History Main Topics [...] with Dr. Bay as planned 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 NATHALYOV Observed: 08/03/2018 Status: COMPLETED Source: RELIANCE 12:40 PM [facility] RE[facility]ITORY Office Visit (FAMPWS) TAMIA PANDA ([id number]) 1955 F Date Time Provider Department 08/03/18 12:40 PM CHRIS OCONNELL ([facility]) FAMPWS During your visit today, we recorded [...] She gets rides to medical appointments from [employer]. She states that she is frustrated that not that her sons are not living with her, she does not have a ride to go to the store or to visit. PAST MEDICAL HISTORY Diagnosis Date - Acute chronic obstructive pulmonary disease with respiratory failure ([facility]) - AF (paroxysmal atrial fibrillation) ([facility]) - Anxiety - Arthritis Seeing Dr Elliott - Cervical cancer ([facility]) hysterectomy - CHF (congestive heart failure) ([facility]) - Chronic back pain Seeing Dr. Wallace - Constipation - COPD (chronic obstructive pulmonary disease) ([facility]) DME [facility] for BiPAP and [facility] [place] for O2. - Coronary atherosclerosis of suquamish coronary artery Previously seeing Dr. Sosa - DDD (degenerative disc disease), lumbar - DM type 2 (diabetes mellitus, type 2) ([facility]) Seeing Dr. Foley for podiatry - DVT (deep venous thrombosis) ([facility]) Post op INA, BSO. - Dysphagia Seeing Dr. Beaulieu - Emphysema lung ([facility]) - Essential hypertension - Functional dyspepsia - Gastroparesis 2017 mild - GERD without esophagitis - Headache - History of colon polyps 11/28/2016 - Hyperlipidemia - Hypothyroidism - Incontinence Seeing Dr. Chapman - Lung nodule 02/[address] in 3 months - Morbid obesity ([facility]) - Muscle weakness - Nausea - PARESH on CPAP DME [facility] for BiPAP and [facility] [place] for O2. - PE (pulmonary thromboembolism) ([facility]) Post op INA/BSO. 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 Social History Main Topics [...] with Dr. Bay as planned 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 Referring Provider: SELF [200] Allergies As of [...] Itching Date Reviewed: 08/03/2018 Reviewed by: Leilani Simmons MA - Fully Assessed Reason for Visit: Recheck [92] Primary Visit Diagnosis:Dark urine [R82.998] Other Visit Diagnoses:Decreased urination [R34] Type 2 diabetes mellitus with diabetic neuropathy, with long-term current use of insulin ([facility]) [E11.40, Z79.4] Essential hypertension [I10] Chronic obstructive pulmonary disease, unspecified COPD type ([facility]) [J44.9] Stage 3 chronic kidney disease ([facility]) [N18.3] Gastroparesis [K31.84] Order(s):UA DIP, URINE (POC) [2639059] Order #: [id number]. 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 CHF (congestive heart failure) ([facility]) [I50.9] BPPV (benign paroxysmal positional vertigo) [...] 08/04/18 PROGRESS Observed: 07/29/2018 Status: COMPLETED Source: RELIANCE 4:01 PM [facility] REPOSITORY O ID: [id number] Author: Saad (Nina) Larry Service: (none) Author Type: Registered Nurse Type: Progress Notes Filed: 07/29/2018 4:02 PM Note Text: PRIMARY CARE COORDINATION QUICK NOTE Provider Action/FYI FYI, pt left message she couldn't come to TCM appt today, her ride never came to pick her up for appt. Patient identified by name and date . Saad Silvestre RN July 29, 2018 4:02 PM 12 LEAD ELECTROCARDIOGRAM Observed: 07/29/2018 Status: F Source: STURGEON 2:22 PM [facility] REPOSITORY [facility] Cardiovascular Services [address] [place] [address] 12 Lead EKG 07/22/18 1722 MR#: [id number] Acct: [id number] Name: TAMIA PANDA Rep #: [id number] : 1955 63 From: Bart Blas MD [...] ECG Confirmed by BART BLAS MD ([id number]), state editor SHYANNE TERRAZAS ([id number]) on 07/29/2018 2:21:58 PM Referred By: DC Confirmed By:BART BLAS MD 07/29/18 1422 Date Bart Blas MD CC: Bhupendra Oliveira MD; Bao Quintana MD Signed PROGRESS Observed: 07/29/2018 Status: COMPLETED Source: RELIANCE 12:33 PM [facility] REPOSITORY HNO ID: [id number] Author: Katie (Lm) Podlogar Service: (none) Author Type: Nurse Practitioner Type: Progress Notes Filed: 07/29/2018 12:33 PM Note Text: Done. Katie Ybarra PROGRESS Observed: 07/28/2018 Status: COMPLETED Source: RELIANCE 2:32 PM [facility] MAIN CAMP[facility] REPOSITORY HNO ID: [id number] Author: Saad HarrisonRn) Larry Service: (none) Author [...] might be hidden SUMMARY: -Pt discharged from [facility] on 07/26. -Follow up appointment on 07/29 with Katie Mckeon CNP. -Medication review done with patient and [place] faxed list. -Admitted for: Acute respiratory failure [...] HELD/DISCONTINUED: None BRIEF HOSPITAL COURSE: COPIED FROM [facility] [employer]: The patient is a 63 year old [...] still for home with home health care. Saad Silvestre RN CNPTOUTRROQUE Observed: 07/28/2018 Status: COMPLETED Source: RELIANCE 12:00 AM [facility] REPOSITORY Patient Outreach (FAMPWS) TAMIA PANDA ([id number]) 1955 F Date Time Provider Department 07/28/18 [...] might be hidden SUMMARY: -Pt discharged from [facility] on 07/26. -Follow up appointment on 07/29 with Katie Mckeon CNP. -Medication review done with patient and [place] faxed list. -Admitted for: Acute respiratory failure [...] appt (PCC called BMI desk and left [facility] [place] to schedule a 3 [...] HELD/DISCONTINUED: None BRIEF HOSPITAL COURSE: COPIED FROM [facility] [employer]: The patient is a 63 year old [...] for home with home health care. NINA Dumont, [email or web address].LM 07/29/2018 12:33 PM Signed Done. 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 CHF (congestive heart failure) ([facility]) [I50.9] BPPV (benign paroxysmal positional vertigo) [...] 07/27/2018 Status: F Source: KINJAL 3:23 PM [facility] REPOSITORY [facility] Cardiovascular Services [address] [place] [address] 12 Lead EKG 07/25/18 0624 MR#: [id number] Acct: [id number] Name: TAMIA PANDA Rep #: [id number] : 1955 63 From: Bart Blas MD Attending Dr: Yared Fernández DO Status: DIS NICOLE Ordering Dr: Lizette Cuellar MD Date: 07/25/18 Location: MS3 Sex: F C Admitted: 07/25/18 Test Reason [...] ECG Confirmed by WAN ABRAHAM, BART ([id number]), state editor SHYANNE TERRAZAS ([id number]) on 07/27/2018 3:23:33 PM Referred By: GAURANG Confirmed By:BART BLAS MD 07/27/18 1523 Date Bart Blas MD CC: Bhupendra Oliveira MD; Lizette Cuellar MD; Yared Fernánedz DO Signed BEDSIDE GLUCOSE Collected: 07/26/2018 Status: F Source: KINJAL 11:51 AM [facility] REPOSITORY TYPE CODE TESTS RESULT OUT OF REFERENCE UNITS RANGE LAB L501.080 70-110 mg/dL High BEDSIDE GLU 315 Result Comment: Insulin Given MANAGEMENT OF PATIENT CARE PER NURSING PROTOCOL Performed By: #### L501.080 #### [facility] Point of Care [address] [place] [address] DISCHARGE SUMMARY Observed: 07/26/2018 Status: F Source: KINJAL 9:25 AM [facility] REPOSITORY [facility] Medical Records Department [address] [place] [address] Discharge Summary 07/26/1822 MR#: [id number] Acct: [id number] Name: TAMIA PANDA Rep #: [id number] : 1955 63 From: Zuhair Cohn DO PCP: Bhupendra Oliveira MD Status: ADM IN Y Location: MD3 [id number] Discharge Date and Diagnosis - Problem List [...] Metoprolol Tartrate [Lopressor] 100 mg PO BID 08/26/18 Omeprazole [Prilosec] 20 mg PO DAILY 05/17/18 [...] applicable Code Visit OBSV E AND M: 14917 Observation care discharge 07/26/18 0925 <Electronically signed by Zuhair Cohn DO> Date Zuhair Cohn DO Cosigner Signature (if applicable): Date CC: Bhupendra Oliveira MD; Zuhair Cohn DO Signed DISCHARGE INSTRUCTION Observed: 07/26/2018 Status: F Source: KINJAL 9:22 AM [facility] REPOSITORY [facility] Medical Records Department [address] [place] [address] Instructions for Home/Discharge Instructions 07/26/18918 MR#: [id number] Acct: [id number] Name: TAMIA PANDA Rep #: [id number] : 1955 63 From: Zuhair Cohn DO [...] When: 1-2 months Proposed Discharge Date: 07/26/18 07/26/18921 <Electronically signed by Zuhair Cohn DO> Date Zuhair Cohn DO CC: Bhupendra Oliveira MD BEDSIDE GLUCOSE Collected: 07/26/2018 Status: F Source: KINJAL 6:59 AM [facility] REPOSITORY TYPE CODE TESTS RESULT OUT OF REFERENCE UNITS RANGE LAB L501.080 70-110 mg/dL High BEDSIDE GLU 210 Result Comment: MANAGEMENT OF PATIENT CARE PER NURSING PROTOCOL Performed By: #### L501.080 #### [facility] Point of Care [address] [place], [place] [id number] CBC W/DIFF, AUTOMATED Collected: 07/26/2018 Status: F Source: KINJAL 6:55 AM [facility] REPOSITORY TYPE CODE TESTS RESULT OUT OF [...] Normal RARE Performed By: #### L100.0100 #### [facility] [address] [facility] [place], [place], [id number] BASIC METABOLIC Collected: 07/26/2018 Status: F Source: KINJAL PROFILE (BMP) 6:55 AM [facility] REPOSITORY TYPE CODE TESTS RESULT OUT OF [...] 8 GAP Performed By: #### L500.2500 #### [facility] [address] [place], [place], [address] BEDSIDE GLUCOSE Collected: 07/25/2018 Status: F Source: KINJAL 9:27 PM [facility] REPOSITORY TYPE CODE TESTS RESULT OUT OF REFERENCE UNITS RANGE LAB L501.080 70-110 mg/dL High BEDSIDE GLU 122 Result Comment: MANAGEMENT OF PATIENT CARE PER NURSING PROTOCOL Performed By: #### L501.080 #### [facility] Point of Care [address] [place], [place] [address] BEDSIDE GLUCOSE Collected: 07/25/2018 Status: F Source: KINJAL 4:14 PM [facility] REPOSITORY TYPE CODE TESTS RESULT OUT OF REFERENCE UNITS RANGE LAB L501.080 70-110 mg/dL High BEDSIDE GLU 143 Result Comment: MANAGEMENT OF PATIENT CARE PER NURSING PROTOCOL Performed By: #### L501.080 #### [facility] Point of Care [address] [place], [place] [address] BEDSIDE GLUCOSE Collected: 07/25/2018 Status: F Source: KINJAL 11:33 AM [facility] REPOSITORY TYPE CODE TESTS RESULT OUT OF REFERENCE UNITS RANGE LAB L501.080 70-110 mg/dL High BEDSIDE GLU 245 Result Comment: MANAGEMENT OF PATIENT CARE PER NURSING PROTOCOL Performed By: #### L501.080 #### [facility] Point of Care [address] [place], [place] [address] HISTORY AND PHYSICAL Observed: 07/25/2018 Status: F Source: KINJAL EXAM 10:28 AM [facility] Medical Records Department [address] [place] [address] History and Physical 07/25/[address] [facility] MR#: [id number] Acct: [id number] Name: TAMIA PANDA Rep #: [id number] : 1955 63 From: Zuhair Cohn DO PCP: Bhupendra Oliveira MD Status: ADM IN Location: [facility] AT705-2 Problem List (1) Acute respiratory failure with [...] ligation. 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 Smoking Status: Former smoker Tobacco Use: [...] discharge. Code Visit Inpatient E AND M: 95244 Init Hosp L3 07/25/18 1028 <Electronically signed by Zuhair Cohn DO> Date Zuhair Cohn DO Cosigner Signature: Date (if applicable) CC: Bhupendra Oliveira MD; Zuhair Cohn DO Signed EMERGENCY DEPARTMENT Observed: 07/25/2018 Status: F Source: STURGEON SUMMARY 7:44 AM [facility] REPOSITORY [facility] Medical Records Department [address] [place] [address] Emergency Department Summary 07/25/18 0613 MR#: [id number] Acct: [id number] Name: TAMIA PANDA Rep #: [id number] : 1955 63 From: Lizette Cuellar MD [...] outpatient management This note was generated with [employer] dictation software. It may contain incorrect words, [...] problems, contact your Primary Care Provider. Call [email or web address] Registry ([phone]) or report to the closest Emergency Room. Call 911 if necessary. 07/25/18 0744 <Electronically signed by Lizette Cuellar MD> Date Lizette Cuellar MD Cosigner Signature (If Indicated): Date CC: Bhupendra Oliveira MD CBC W/DIFF, AUTOMATED Collected: 07/25/2018 Status: F Source: KINJAL 7:10 AM [facility] REPOSITORY TYPE CODE TESTS RESULT OUT OF [...] Lymph 1.18 Performed By: #### L100.0100 #### [facility] [address] [place], [place], [address] BASIC METABOLIC Collected: 07/25/2018 Status: F Source: STURGEON PROFILE (BMP) 7:10 AM [facility] REPOSITORY TYPE CODE TESTS RESULT OUT OF [...] By: #### L500.2500, L500.3400, L501.2450, L501.4010 #### [facility] [address] [place], [address] LIVER PROFILE Collected: 07/25/2018 Status: F Source: STURGEON 7:10 AM [facility] REPOSITORY TYPE CODE TESTS RESULT OUT OF [...] By: #### L500.2500, L500.3400, L501.2450, L501.4010 #### [facility] [address] [place], [address] LIPASE Collected: 07/25/2018 Status: F Source: STURGEON 7:10 AM [facility] REPOSITORY TYPE CODE TESTS RESULT OUT OF REFERENCE UNITS RANGE LAB L501.2450 73-393 U/L Low LIPASE 51 Performed By: #### L500.2500, L500.3400, L501.2450, L501.4010 #### [facility] [address] [place], [address] TROPONIN-I Collected: 07/25/2018 Status: F Source: STURGEON 7:10 AM [facility] REPOSITORY TYPE CODE TESTS RESULT OUT OF RANGE REFERENCE UNITS LAB L501.4010 <0.045 ng/mL Normal < 0.015 TROPONIN-I Result Comment: TROPONIN-I EXPECTED VALUES <0.045 Negative 0.045 - 0.590 Consistent with Cardiac Damage > OR = 0.600 Critical Value Not every elevated troponin is indicative of AK. These values should be used with clinical judgement in examining the patient's clinical picture for diagnosis. To establish a diagnosis of AK versus myocardial injury, there must be a demonstrated rise and/or fall in the troponin values, in addition to ischemic symptoms, EKG changes, new regional wall motion abnormality, and/or angiographical evidence. PLEASE NOTE: REFERENCE RANGES EDITED 18 Performed By: #### L500.2500, L500.3400, L501.2450, L501.4010 #### [facility] [address] [place], [address] CHEST 1 VIEW Observed: 07/25/2018 Status: F Source: STURGEON (PORTABLE) 6:09 AM [facility] REPOSITORY [facility] Imaging Services [address] [place] [address] Chest 1 View (Portable) MR#: [id number] Acct: [id number] Name: MTGeoffTAMIA J Rep #: [id number] : 1955 F 63 From: Mukul Murray MD PCP: Bhupendra Oliveira MD Status: PRE ER Study: Chest 1 View (Portable) Date of Exam: 07/25/18 Exam# [id number] Ordering Dr: Lizette Cuellar MD STUDY: X-RAY [...] CC: Bhupendra Oliveira MD; Lizette Cuellar MD Adult Health Clinical Nurse Specialist: Signed PROGRESS Observed: 07/24/2018 Status: COMPLETED Source: RELIANCE 11:26 AM [facility] REPOSITORY HNO ID: [id number] Author: Saad (Rn) Larry Service: (none) Author Type: Registered Nurse Type: Progress Notes Filed: 07/28/2018 8:55 AM Note Text: 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 N/A Patient identified by name and date : YES SUMMARY: -Patient discharged from [facility] ED on 07/22. -Follow up appointment on 07/29. -Medication review done. N/A -Presented with: SOB Acute Bronchitis CONCERNS: N/A NEW MEDICATIONS: Doxycycline Monohydrate 100 mg PO BID #20 cap MEDS HELD/DISCONTINUED: None BRIEF ED COURSE: Notes copied from [facility] at [facility]: The patient is a 63 F with [...] AM CNPTOUTREACH Observed: 07/24/2018 Status: COMPLETED Source: RELIANCE 12:00 AM [facility] REPOSITORY Patient Outreach (FAMPWS) TAMIA PANDA ([id number]) 1955 F Date Time Provider Department 07/24/18 SAAD SILVESTRE) CIERA During your visit today, we recorded the following information about you: Saad Sivlestre RN 07/28/2018 8:55 AM Signed 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 N/A Patient identified by name and date : YES SUMMARY: -Patient discharged from [facility] ED on 07/22. -Follow up appointment on 07/29. -Medication review done. N/A -Presented with: SOB Acute Bronchitis CONCERNS: N/A NEW MEDICATIONS: Doxycycline Monohydrate 100 mg PO BID #20 cap MEDS HELD/DISCONTINUED: None BRIEF ED COURSE: Notes copied from [facility] at [facility]: The patient is a 63 F with [...] Ma - Fully Assessed Reason for Visit: Machine Baster Ed Follow Up [3615] Prescriptions as of 07/24/2018 Sig: ASPIRIN 81 [...] Essential hypertension [I10] Coronary artery disease of suquam[place] artery of stoney* AF (paroxysmal atrial fibrillation) ([facility]) [I48.* COPD (chronic obstructive pulmonary disease) (H* GERD without esophagitis [K21.9] Dysphagia [R13.10] Constipation [K59.00] DM type 2 (diabetes mellitus, type 2) ([facility]) [E1* 02/14/2017 Shortness of breath [R06.02] 02/14/2017 Arthritis [M19.90] More... CHF (congestive heart failure) ([facility]) [I50.9] BPPV (benign paroxysmal positional vertigo) [...] DISCHARGE INSTRUCTION Observed: 07/23/2018 Status: F Source: STURGEON 12:22 AM [facility] Medical Records Department [address] [place] [address] Discharge Instruction 07/22/182011 MR#: [id number] Acct: [id number] Name: TAMIA PANDA Jennifer Rep #: [id number] : 1955 63 From: Bao Quintana MD [...] problems, contact your Primary Care Provider. Call [email or web address] Registry ([phone]) or report to the closest Emergency Room. Call 911 if necessary. 07/23/18 0022 <Electronically signed by Bao Quintana MD> Date Bao Quintana MD Cosigner Signature (If Indicated): Date CC: Bhupendra Oliveira MD EMERGENCY DEPARTMENT Observed: 07/23/2018 Status: F Source: STURGEON SUMMARY 12:22 AM [facility] REPOSITORY [facility] Medical Records Department [address] [place] [address] Emergency Department Summary 07/22/18 1751 MR#: [id number] Acct: [id number] Name: TAMIA PANDA Rep #: [id number] : 1955 63 From: Bao Quintana MD [...] 2. Hypoglycemia This note was generated with [employer] dictation software. It may contain incorrect words, [...] your Primary Care Provider. Call [facility] ([phone]) or report to the closest Emergency Room. Call 911 if necessary. 07/23/18 0022 <Electronically signed by Bao Quintana MD> Date Bao Quintana MD Cosigner Signature (If Indicated): Date CC: Bhupendra Oliveira MD BEDSIDE GLUCOSE Collected: 07/22/2018 Status: F Source: STURGEON 8:24 PM [facility] REPOSITORY TYPE CODE TESTS RESULT OUT OF REFERENCE UNITS RANGE LAB L501.080 70-110 mg/dL High BEDSIDE GLU 118 Result Comment: MANAGEMENT OF PATIENT CARE PER NURSING PROTOCOL Performed By: #### L501.080 #### [facility] Point of Care [address] [place], [place] [address] BEDSIDE GLUCOSE Collected: 07/22/2018 Status: F Source: STURGEON 7:15 PM [facility] REPOSITORY TYPE CODE TESTS RESULT OUT OF RANGE REFERENCE UNITS LAB L501.080 70-110 mg/dL Normal BEDSIDE GLU 83 Result Comment: MANAGEMENT OF PATIENT CARE PER NURSING PROTOCOL Performed By: #### L501.080 #### [facility] Point of Care [address] [place] [address] CBC W/DIFF, AUTOMATED Collected: 07/22/2018 Status: F Source: STURGEON 6:25 PM [facility] REPOSITORY Order Comment: REDRAW. PREVIOUS SPECIMEN REJECTED [...] Lymph 1.16 Performed By: #### L100.0100 #### [facility] [address] [place], [place], [address] COMPREHENSIVE METABOLIC Collected: 07/22/2018 Status: F Source: [facility] 5:05 PM [facility] REPOSITORY Order Comment: 'TROP' Serial specimen #1, [...] Performed By: #### L500.4050, L501.2450, L501.4010 #### [facility] [address] [facility] [place], [address] LIPASE Collected: 07/22/2018 Status: F Source: STURGEON 5:05 PM [facility] REPOSITORY Order Comment: 'TROP' Serial specimen #1, #2, #3, or #4: 1 TYPE CODE TESTS RESULT OUT OF REFERENCE UNITS RANGE LAB L501.2450 73-393 U/L Low LIPASE 42 Performed By: #### L500.4050, L501.2450, L501.4010 #### [facility] [address] [place], [address] TROPONIN-I Collected: 07/22/2018 Status: F Source: STURGEON 5:05 PM [facility] REPOSITORY Order Comment: 'TROP' Serial specimen #1, #2, #3, or #4: 1 TYPE CODE TESTS RESULT OUT OF RANGE REFERENCE UNITS LAB L501.4010 <0.045 ng/mL Normal < 0.015 TROPONIN-I Result Comment: TROPONIN-I EXPECTED VALUES <0.045 Negative 0.045 - 0.590 Consistent with Cardiac Damage > OR = 0.600 Critical Value Not every elevated troponin is indicative of AK. These values should be used with clinical judgement in examining the patient's clinical picture for diagnosis. To establish a diagnosis of AK versus myocardial injury, there must be a demonstrated rise and/or fall in the troponin values, in addition to ischemic symptoms, EKG changes, new regional wall motion abnormality, and/or angiographical evidence. PLEASE NOTE: REFERENCE RANGES EDITED 18 Performed By: #### L500.4050, L501.2450, L501.4010 #### [facility] [address] [place], [address] CHEST 1 VIEW Observed: 07/22/2018 Status: F Source: STURGEON (PORTABLE) 5:02 PM [facility] REPOSITORY [facility] Imaging Services [address] [place] [address] Chest 1 View (Portable) MR#: [id number] Acct: [id number] Name: TAMIA PANDA Rep #: [id number] : 1955 F 63 From: John Chavez MD PCP: Bhupendra Oliveira MD Status: REG ER Study: Chest 1 View (Portable) Date of Exam: 07/22/18 Exam# [id number] Ordering Dr: Bao Quintana MD STUDY: X-RAY [...] zones greater on the left Electronically Signed: John Chavez MD at 18:28 EDT , Service support , CC: Bhupendra Oliveira MD; Bao Quintana MD Adult Health Clinical Nurse Specialist: Signed PROGRESS Observed: 07/22/2018 Status: COMPLETED Source: RELIANCE 4:21 PM [facility] REPOSITORY HNO ID: [id number] Author: Nanda Rodriguez) Brian Service: (none) Author Type: Physician Type: Progress Notes Filed: 07/22/2018 4:21 PM Note Text: Reviewed and agree. 40 minute TCM on discharge. PROGRESS Observed: 07/22/2018 Status: COMPLETED Source: RELIANCE 3:23 PM [facility] REPOSITORY HNO ID: [id number] Author: Saad Allen) Larry Service: (none) Author [...] hear gurgling in her chest since yesterday Service Engine Repairer plan for next outreach: Will follow up in 2 days Signature Saad Silvestre RN July 22, 2018 CNPTOUTREACH Observed: 07/22/2018 Status: COMPLETED Source: RELIANCE 12:00 AM [facility] REPOSITORY Patient Outreach (FAMPWS) TAMIA PANDA ([id number]) 1955 F Date Time Provider Department 07/22/18 SAAD SILVESTRE) FAMPWS During your visit today, [...] hear gurgling in her chest since yesterday Service Engine Repairer plan for next outreach: Will follow up [...] Ma - Fully Assessed Reason for Visit: Machine Baster Chronic Care [3612] Problem List As Of Date 07/22/2018 Noted Resolved SUBJECTIVE TINNITUS [H93.19] INVALID FOR* PARESH treated with BiPAP [G47.33] INVALID FOR* Hyperlipidemia [E78.5] INVALID FOR* Coronary disease [I25.10] INVALID FOR* Diabetes mellitus, type II ([facility]) [E11.9] INVALID FOR* Morbid obesity ([facility]) [E66.01] Hypothyroidism [E03.9] Anxiety [F41.9] Sleep apnea [G47.30] 02/14/2017 Essential hypertension [I10] 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 CHF (congestive heart failure) ([facility]) [I50.9] BPPV (benign paroxysmal positional vertigo) [...] 07/22/18 PROGRESS Observed: 07/03/2018 Status: COMPLETED Source: RELIANCE 4:04 PM [facility] REPOSITORY HNO ID: [id number] Author: Saad Allen) Larry Service: (none) Author Type: Registered Nurse Type: Progress Notes Filed: 07/08/2018 9:10 AM Note Text: PRIMARY CARE COORDINATION FOLLOW-UP NOTE Provider Lin/WILLEM LOZANO received pt's blood sugars during her phone call and sent to PCP Patient identified by name and date of . YES Spoke to sister, Krystle, asked her to have pt call back with blood sugars. Service Engine Repairer plan for next outreach: Will follow up one month Signature Saad Silvestre RN July 03, 2018 [place] Observed: 07/03/2018 Status: COMPLETED Source: RELIANCE 12:00 AM [facility] REPOSITORY Patient Outreach (FAMPWS) TAMIA PANDA ([id number]) 1955 F Date Time Provider Department 07/03/18 [facility]RE (NINA[facility] During your visit today, we recorded the following information about you: Saad Silvestre RN 07/08/2018 9:10 AM Signed PRIMARY CARE COORDINATION FOLLOW-UP NOTE Provider Lin/WILLEM LOZANO received pt's blood sugars during her phone call and sent to PCP Patient identified by name and date of . YES Spoke to sister, Krystle, asked her to have pt call back with blood sugars. Service Engine Repairer plan for next outreach: Will follow up [...] Ma - Fully Assessed Reason for Visit: Machine Baster Chronic Care [3612] Prescriptions as of 07/03/2018 Sig: ASPIRIN 81 [...] II (HCC) [E11.9] INVALID FOR* Morbid obesity ([facility]) [E66.01] Hypothyroidism [E03.9] Anxiety [F41.9] Sleep apnea [G47.30] 02/14/2017 Essential hypertension [I10] Coronary artery disease of suquam[place] artery of stoney* AF (paroxysmal atrial fibrillation) ([facility]) [I48.* COPD (chronic obstructive pulmonary disease) (H* GERD without esophagitis [K21.9] Dysphagia [R13.10] Constipation [K59.00] DM type 2 (diabetes mellitus, type 2) ([facility]) [E1* 02/14/2017 Shortness of breath [R06.02] [...] 07/08/18 PROGRESS Observed: 06/25/2018 Status: COMPLETED Source: RELIANCE 3:42 PM [facility] REPOSITORY HNO ID: [id number] Author: Nanda Rodriguez) Brian Service: (none) Author Type: Physician Type: Progress Notes Filed: 06/25/2018 3:43 PM Note Text: Reviewed. Agree with eating regular meals. Skip meal time insulin if she skips a meal. No change to insulins at this time. PROGRESS Observed: 06/25/2018 Status: COMPLETED Source: RELIANCE 10:53 AM [facility] REPOSITORY HNO ID: [id number] Author: Saad Allen) Larry Service: (none) Author [...] 172 179 166 144 166 134 Afternoon 46 Evening 247 181 91 202 Any low [...] unit/mL IInject 36 units subcutaneously twice daily Service Engine Repairer plan for next outreach: Will follow up one weeks Signature Saad Silvestre RN June 25, 2018 LMTOUTRROQUE Observed: 06/25/2018 Status: COMPLETED Source: RELIANCE 12:00 AM [facility] REPOSITORY Patient Outreach (FAMPWS) MTTAMIA Tellez ([id number]) 1955 F Date Time Provider Department 06/25/18 SAAD SILVESTRE (RN) FAMDavidWS During your visit today, we recorded [...] 172 179 166 144 166 134 Afternoon 46/ Evening 247 181 91 202 Any low [...] unit/mL IInject 36 units subcutaneously twice daily Service Engine Repairer plan for next outreach: Will follow up [...] Ma - Fully Assessed Reason for Visit: Machine Baster Chronic Care [5401] Prescriptions as of 06/25/2018 Sig: ASPIRIN 81 [...] Essential hypertension [I10] Coronary artery disease of suquam[place] artery of stoney* AF (paroxysmal atrial fibrillation) [...] Encounter Status:Closed by SAAD SILVESTRE on 06/25/18 LMN Observed: 06/12/2018 Status: COMPLETED Source: GERMAN 12:00 AM [facility] REPOSITORY Telephone ([facility]) TAMIA PANDA ([id number]) 1955 F Date Time Provider Department 06/12/18 [facility] During your visit today, we recorded the following information about you: Gloria Donovan [facility] 06/12/2018 12:11 PM Addendum CMN RECEIVED VIA FAX AND ROUTED TO [facility] VIA ONBASE 06/12/18 Gloria Donovan [facility] DME COMPANY SENDING CMN: KURT QUINTEROS COMPLETED [...] COMPOUNDED PRESCRIPTION Please fit for BiPAP mask. [employer] ULTRA BLUE TEST STRIP USE DIRECTED TO CHECK BLOO* VetCloudTOUCH DELICA LANCETS 30 GA* USE TO CHECK [...] Essential hypertension [I10] 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 CHF (congestive heart failure) ([facility]) [I50.9] BPPV (benign paroxysmal positional vertigo) [...] 06/12/18 PROGRESS Observed: 06/03/2018 Status: COMPLETED Source: RELIANCE 12:29 PM [facility] REPOSITORY O ID: [id number] Author: Jessica Lobo (Sw) Service: (none) Author Type: Fireboat Operator Type: Progress Notes Filed: 06/03/2018 12:35 PM Note Text: Aroldo spoke with patient and family in regards to rental deposit assistance agencies. Aroldo advised patient to check with [facility] [employer] and [employer] to see if they have financial assistance for deposit. Patient looking at nishant Hernandez has [employer] so her rent assistance is provided through [employer]. PROGRESS Observed: 06/03/2018 Status: COMPLETED Source: RELIANCE 11:44 AM [facility] REPOSITORY O ID: [id number] Author: Saad HarrisonRn) Larry Service: (none) Author [...] 2018 PROGRESS Observed: 06/03/2018 Status: COMPLETED Source: RELIANCE 11:21 AM [facility] REPOSITORY HNO ID: [id number] Author: Clayton Serna Ma Service: (none) Author Type: (none) Type: Progress Notes Filed: 06/03/2018 3:45 PM Note Text: 63 year old female here for INACTIVATED INFLUENZA VACCINE. 8621-0951 Season Patient is identified by name and date of : Yes [] CONTRAINDICATIONS color enhanced section Age less than 6 months? No Allergy to eggs, chicken, chicken feathers, or chicken dander? No Allergy to thimerosal (a preservative) or formaldehyde? No History of severe reaction to any vaccine component or a previous dose of influenza vaccination? 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 Yes See immunization activity in [facility] for details of immunizations adminstered today. Patient age: [age] year old For The 0141-7567 Flu Season 6-35 months old: Fluzone 0.25 [...] time. PROGRESS Observed: 06/03/2018 Status: COMPLETED Source: RELIANCE 11:13 AM [facility] [place] REPOSITORY [facility] ID: [id number] Author: Nanda Rodriguez) Brian Service: (none) Author [...] Bipap. Has humidifier in place. Discussed contacting [email or web address] for adjustment. Notes that a few days [...] Using large oxygen tank while at home. [employer] is coming out today to fix. Patient [...] been looking for housing, called over to [facility] and other locations. Needs to drop off information to [facility] to hopefully get placement. Planning on staying with Mery until she can find a place. Requesting flu shot today. Past medical history, appointments, medications, allergies reviewed. Previous Medical History PAST MEDICAL HISTORY Diagnosis Date - Acute chronic obstructive pulmonary disease with respiratory failure ([facility]) - AF (paroxysmal atrial fibrillation) ([facility]) - Anxiety - Arthritis Seeing Dr Elliott - Cervical cancer ([facility]) hysterectomy - CHF (congestive heart failure) ([facility]) - Chronic back pain Seeing Dr. Wallace - Constipation - COPD (chronic obstructive pulmonary disease) ([facility]) AISHA Kirk for BiPAP and Aashish Nogueira for O2. - Coronary atherosclerosis of suquamish coronary artery Previously seeing Dr. Sosa - DDD (degenerative disc disease), lumbar - DM type 2 (diabetes mellitus, type 2) ([facility]) Seeing Dr. Foley for podiatry - DVT (deep venous thrombosis) (HCC) Post op INA, BSO. - Dysphagia Seeing [...] - Nausea - PARESH on CPAP [facility] for BiPAP and [facility] for O2. 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 Social History Main Topics [...] Abs Lymph 1.00 - 4.00 k/uL 1.57 Pepin% % 11.0 Abs Pepin <0.87 k/uL 0.72 Eosin% % 2.8 Abs [...] >60 >60 Sm Antibody <1.0 AI 0.4 ASSEMBLY MACHINE FEEDER Antibody <1.0 AI 0.3 SSA Antibody <1.0 AI <0.2 SSB Antibody <1.0 AI <0.2 Centromere Ab <1.0 AI <0.2 Scleroderma Ab, IgG <1.0 AI <0.2 Jossy 1 Antibody <1.0 AI <0.2 Ribosomal ASSEMBLY MACHINE FEEDER <1.0 AI <0.2 Chromatin Antibody <1.0 AI [...] with more than 50% of the total rrtc-fq-onyl time of the visit in counseling / coordination of care. Nanda Oliveira MD CNOV Observed: 06/03/2018 Status: COMPLETED Source: RELIANCE 11:00 AM [facility] REPOSITORY [facility] MTGeoffTAMIA Rodriguez ([id number]) 1955 F Date Time Provider Department 06/03/18 11:00 AM NANDA OLIVEIRA () [facility] During your visit today, we recorded the following information about you: Temperature Pulse Respiration Blood pressure 97.8 degrees 68/minute 14/minute 118/74 Nanda Oliveira MD 06/03/2018 3:45 PM Signed Chief Complaint Patient presents with: Recheck: 2-3 week follow up Imm/Inj: Flu Vaccine HPI Tamia Jennifer Santosgeoff is a 63 year old female who [...] been looking for housing, called over to [facility] and other locations. Needs to drop off information to [facility] to hopefully get placement. Planning on staying with Mery until she can find a place. Requesting flu shot today. Past medical history, appointments, medications, allergies reviewed. Previous Medical History PAST MEDICAL HISTORY Diagnosis Date - Acute chronic obstructive pulmonary disease with respiratory failure ([facility]) - AF (paroxysmal atrial fibrillation) ([facility]) - Anxiety - Arthritis Seeing Dr Elliott - Cervical cancer ([facility]) hysterectomy - CHF (congestive heart failure) ([facility]) - Chronic back pain Seeing Dr. Wallace - Constipation - COPD (chronic obstructive pulmonary disease) ([facility]) AISHA Kirk for BiPAP and [facility] for O2. - Coronary atherosclerosis of suquamish coronary artery Previously seeing Dr. Sosa - DDD (degenerative disc disease), lumbar - DM type 2 (diabetes mellitus, type 2) ([facility]) Seeing Dr. Foley for podiatry - DVT (deep venous thrombosis) ([facility]) Post op INA, BSO. - Dysphagia Seeing Dr. Beaulieu - Emphysema lung ([facility]) - Essential hypertension - Functional dyspepsia - Gastroparesis 2017 mild - GERD without esophagitis - Headache - History of colon polyps 11/28/2016 - Hyperlipidemia - Hypothyroidism - Incontinence Seeing Dr. Chapman - Lung nodule 02/[address] in 3 months - Morbid obesity ([facility]) - Muscle weakness - Nausea - PARESH on CPAP AISHA Kirk for BiPAP and [facility] for O2. - PE (pulmonary thromboembolism) ([facility]) Post op INA/BSO. 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 Social History Main Topics [...] Abs Lymph 1.00 - 4.00 k/uL 1.57 Pepin% % 11.0 Abs Pepin <0.87 k/uL 0.72 Eosin% % 2.8 Abs [...] >60 >60 Sm Antibody <1.0 AI 0.4 ASSEMBLY MACHINE FEEDER Antibody <1.0 AI 0.3 SSA Antibody <1.0 AI <0.2 SSB Antibody <1.0 AI <0.2 Centromere Ab <1.0 AI <0.2 Scleroderma Ab, IgG <1.0 AI <0.2 Jossy 1 Antibody <1.0 AI <0.2 Ribosomal ASSEMBLY MACHINE FEEDER <1.0 AI <0.2 Chromatin Antibody <1.0 AI [...] with more than 50% of the total dahq-gs-fhhd time of the visit in counseling / coordination of care. MD Clayton Floyd Ma 06/03/2018 3:45 PM Signed 63 year old female here for INACTIVATED INFLUENZA VACCINE. 3482-3707 Season Patient is identified by name and date of : Yes [] CONTRAINDICATIONS color enhanced section Age less than 6 months? No Allergy to eggs, chicken, chicken feathers, or chicken dander? No Allergy to thimerosal (a preservative) or formaldehyde? No History of severe reaction to any vaccine component or a previous dose of influenza vaccination? 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 Yes See immunization activity in [facility] for details of immunizations adminstered today. Patient age: [age] year old For The 2266-0215 Flu Season 6-35 months old: Fluzone 0.25 [...] one months time. Referring Provider: NANDA OLIVEIRA) [[id number]] Allergies As of Date: 06/03/2018 Noted Allergy [...] QUADRIVALENT AGE 3 YRS PLUS + IM [[id number]] Order #: [id number] insulin glargine (LANTUS SOLOSTAR U-100 INSULIN) 100 [...] COMPOUNDED PRESCRIPTION Please fit for BiPAP mask. Neoantigenics ULTRA BLUE TEST STRIP USE DIRECTED TO [...] [I25.10] INVALID FOR* Diabetes mellitus, type II ([facility]) [E11.9] INVALID FOR* Morbid obesity ([facility]) [E66.01] Hypothyroidism [E03.9] Anxiety [F41.9] Sleep apnea [G47.30] 02/14/2017 Essential hypertension [I10] 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 CHF (congestive heart failure) ([facility]) [I50.9] BPPV (benign paroxysmal positional vertigo) [...] 06/03/18 MELCHOR Observed: 06/03/2018 Status: COMPLETED Source: RELIANCE 12:00 AM [facility] REPOSITORY Patient Outreach (FAMPWS) TAMIA PANDA ([id number]) 1955 F Date Time Provider Department 06/03/18 SAAD SILVESTRE) FAMPWS During your visit today, [...] Ma - Fully Assessed Reason for Visit: Machine Baster-In Office Visit [1094] Prescriptions as of 06/03/2018 Sig: PROMETHAZINE 25 [...] II (HCC) [E11.9] INVALID FOR* Morbid obesity ([facility]) [E66.01] Hypothyroidism [E03.9] Anxiety [F41.9] Sleep apnea [G47.30] 02/14/2017 Essential hypertension [I10] 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 CHF (congestive heart failure) ([facility]) [I50.9] BPPV (benign paroxysmal positional vertigo) [...] 06/03/18 CNSW Observed: 06/03/2018 Status: COMPLETED Source: RELIANCE 12:00 AM [facility] REPOSITORY Social Work (LOREEWST) TAMIA PANDA ([id number]) 1955 F Date Time Provider Department 06/03/18 JESSICA LOBO (AROLDO) WICHO During your visit today, we recorded the following information about you: JENAE Norwood 06/03/2018 12:35 PM Signed Aroldo spoke with patient and family in regards to rental deposit assistance agencies. Aroldo advised patient to check with [employer] and [employer] to see if they have financial assistance for deposit. Patient looking at nishant Hernandez has [employer] so her rent assistance is provided through [employer]. Allergies As of Date: 06/03/2018 Noted Allergy [...] [I25.10] INVALID FOR* Diabetes mellitus, type II ([facility]) [E11.9] INVALID FOR* Morbid obesity ([facility]) [E66.01] Hypothyroidism [E03.9] Anxiety [F41.9] Sleep apnea [G47.30] 02/14/2017 Essential hypertension [I10] 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 CHF (congestive heart failure) ([facility]) [I50.9] BPPV (benign paroxysmal positional vertigo) [...] 06/03/18 CONSULTATION Observed: 05/24/2018 Status: F Source: [place]UR[place] 1:02 PM [facility] REPOSITORY [facility] Medical Records Department [address] [place] [address] Consultation 05/17/18 1512 MR#: [id number] Acct: [id number] Name: TAMIA PANDA Rep #: [id number] : 1955 63 From: Ricardo Kamara MD PCP: Bhupendra Oliveira MD Status: DIS IN Y Location: [place] [address] Reason for Consult Date of Consultation: 05/17/18 [...] ligation. 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 Smoking Status: Former smoker - *Family [...] ALBUMIN/CREAT RATIO Collected: 05/20/2018 Status: F Source: RELIANCE 4:57 PM [facility] REPOSITORY TYPE CODE TESTS RESULT [...] 1995, 25:107) Performed By: #### UACR #### [facility] [address] [id number] COMP METABOLIC PANEL Collected: 05/20/2018 Status: F Source: RELIANCE 4:47 PM [facility] REPOSITORY TYPE CODE [...] mg/dL Glucose High 174 Result Comment: The [place] Diabetes Association (ADA) provides guidance for cutoff [...] Standards of Medical Care in Diabetes 2016, [place] Diabetes Association. Diabetes Care. 2016.39(Suppl 1). LAB [...] Performed By: #### CMP, TSH, HBA1C #### [facility] [address] [place] [id number] TSH Collected: 05/20/2018 Status: F Source: RELIANCE 4:47 PM [facility] REPOSITORY TYPE CODE TESTS RESULT OUT OF RANGE REFERENCE UNITS LAB TSH 0.400-5.500 uU/mL TSH 0.891 Performed By: #### CMP, TSH, HBA1C #### [employer] [address] [address] HEMOGLOBIN A1C Collected: 05/20/2018 Status: F Source: RELIANCE 4:47 PM [facility] REPOSITORY TYPE CODE TESTS RESULT OUT OF REFERENCE UNITS RANGE LAB HGBA1C 4.3-5.6 % High Hemoglobin A1c 6.0 LAB HBA0 mg/dL Est. Average Glucose 126 Result Comment: eAG: (Estimated average glucose) is a calculated value from HgbA1c and is community health program representative of the average blood glucose level in the last 2-3 month period. Performed By: #### CMP, TSH, HBA1C #### [employer] [address] [id number] PROGRESS Observed: 05/20/2018 Status: COMPLETED Source: RELIANCE 3:50 PM [facility] REPOSITORY O ID: [id number] Author: Nanda Rodriguez) Brian Service: (none) Author Type: Physician Type: Progress Notes Filed: 05/20/2018 10:07 PM Note Text: Chief Complaint Patient presents with: Hospital Follow Up HPI Tamai Panda is a 63 year old female [...] consulted and initiated stroke workup, admitted to [facility] for monitoring with order for D50 and [...] failure (HCC) - AF (paroxysmal atrial fibrillation) ([facility]) - Anxiety - Arthritis Seeing Dr Elliott - Cervical cancer ([facility]) hysterectomy - CHF (congestive heart failure) ([facility]) - Chronic back pain Seeing Dr. Wallace - Constipation - COPD (chronic obstructive pulmonary disease) ([facility]) [facility] for BiPAP and [facility] [place] for O2. - Coronary atherosclerosis of suquamish coronary artery Previously seeing Dr. Sosa - DDD (degenerative disc disease), lumbar - DM type 2 (diabetes mellitus, type 2) ([facility]) Seeing Dr. Foley for podiatry - DVT (deep venous thrombosis) ([facility]) Post op INA, BSO. - Dysphagia Seeing Dr. Beaulieu - Emphysema lung ([facility]) - Essential hypertension - Functional dyspepsia - Gastroparesis 2016 mild - GERD without esophagitis - Headache - History of colon polyps 11/28/2016 - Hyperlipidemia - Hypothyroidism - Incontinence Seeing Dr. Chapman - Lung nodule 02/[address] in 3 months - Morbid obesity ([facility]) - Muscle weakness - Nausea - PARESH on CPAP [facility] for BiPAP and [facility] for O2. - PE (pulmonary thromboembolism) ([facility]) Post op INA/BSO. 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 Social History Main Topics [...] Will work to control DM. F/u with social service manager to discuss assisted living. - PRIMARY CARE SOCIAL WORK CONSULT 7. Hypothyroidism, unspecified type - ICD9: 244.9, ICD10: E03.9 - check TSH today - TSH BLD 8. Dysphagia, unspecified type - ICD9: 787.20, ICD10: R13.10 - CONSULT SPEECH THERAPY I spent 40 minutes in the visit, with more than 50% of the total dhcy-bu-kztn time of the visit in counseling / coordination of care. Nanda Oliveira MD CNOV Observed: 05/20/2018 Status: COMPLETED Source: RELIANCE 3:40 PM [facility] REPOSITORY [facility] TAMIA PANDA ([id number]) 1955 F Date Time Provider Department 05/20/18 3:40 PM NANDA OLIVEIRA) FAMPWS During your [...] consulted and initiated stroke workup, admitted to tele for monitoring with order for D50 and [...] chronic obstructive pulmonary disease with respiratory failure ([facility]) - AF (paroxysmal atrial fibrillation) ([facility]) - Anxiety - Arthritis Seeing Dr Elliott - Cervical cancer ([facility]) hysterectomy - CHF (congestive heart failure) ([facility]) - Chronic back pain Seeing Dr. Wallace - Constipation - COPD (chronic obstructive pulmonary disease) ([facility]) AISHA Kirk for BiPAP and [facility] [place] for O2. - Coronary atherosclerosis of suquamish coronary artery Previously seeing Dr. Sosa - DDD (degenerative disc disease), lumbar - DM type 2 (diabetes mellitus, type 2) ([facility]) Seeing Dr. Foley for podiatry - DVT (deep venous thrombosis) ([facility]) Post op INA, BSO. - Dysphagia Seeing Dr. Beaulieu - Emphysema lung ([facility]) - Essential hypertension - Functional dyspepsia - Gastroparesis 2017 mild - GERD without esophagitis - Headache - History of colon polyps 11/28/2016 - Hyperlipidemia - Hypothyroidism - Incontinence Seeing Dr. Chapman - Lung nodule 02/[address] in 3 months - Morbid obesity (HCC) - Muscle weakness - Nausea - PARESH on CPAP [facility] Kurt for BiPAP and [facility] Aashish for O2. 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 Social History Main Topics [...] Will work to control DM. F/u with social service manager to discuss assisted living. - PRIMARY CARE SOCIAL WORK CONSULT 7. Hypothyroidism, unspecified type - ICD9: 244.9, ICD10: E03.9 - check TSH today - TSH BLD 8. Dysphagia, unspecified type - ICD9: 787.20, ICD10: R13.10 - CONSULT SPEECH THERAPY I spent 40 minutes in the visit, with more than 50% of the total [id number] time of the visit in counseling / [...] [E03.9] Dysphagia, unspecified type [R13.10] Order(s):HGB A1C [GRECF8A] Order #: [id number] FUTURE insulin glargine (LANTUS SOLOSTAR U-100 INSULIN) 100 unit/mL (3 mL) inpnInject 30 units subcutaneously twice dailyDisp: 3 PenRfl: 1 TSH BLD [SQTSH] Order #: [id number] FUTURE COMP METABOLIC PANEL [SQCMP] Order #: [id number] FUTURE ALBUMIN/CREAT RATIO RND UR [SQUACR] Order #: [id number] FUTURE CONSULT SPEECH THERAPY [8550625] Order #: [id number]: 1 PRIMARY CARE SOCIAL WORK CONSULT [1057469] Order #: [id number]: 1 Prescriptions as of 05/20/2018 Sig: INSULIN [...] [I25.10] INVALID FOR* Diabetes mellitus, type II ([facility]) [E11.9] INVALID FOR* Morbid obesity ([facility]) [E66.01] Hypothyroidism [E03.9] Anxiety [F41.9] Sleep apnea [G47.30] 02/14/2017 Essential hypertension [I10] 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 CHF (congestive heart failure) ([facility]) [I50.9] BPPV (benign paroxysmal positional vertigo) [...] CAROTID DUPLEX Observed: 05/20/2018 Status: F Source: STURGEON ULTRASOUND 3:04 PM [facility] REPOSITORY [facility] Cardiovascular Services [address] [place] [address] Carotid Duplex Ultrasound 05/18/18 1452 MR#: [id number] Acct: [id number] Name: TAMIA PANDA Rep #: [id number] : 1955 63 From: Jean Pierre Keene MD Attending Dr: Yvon Hogan MD Status: DIS IN Ordering Dr: Yvon Hogan MD Date: 05/18/18 Location: [facility] Sex: F C Admitted: 05/17/18 Reason For [...] the left vertebral artery. Procedure Carotid Duplex 05453. Exam performed portable in patient room. Interpretation Summary There is < 50% stenosis in the bilateral extracranial internal carotid arteries based on velocity criteria. There is atherosclerotic palque noted in the right internal cartoid artery. There is antegrade flow in bilateral vertebral arteries. Ordering Physician: Yvon Hogan Referring Physician: Nanda Oliveira Performed By: Mckenna Fish, RDCS, RVT 05/20/18 1504 Date Jean Pierre Keene MD CC: Bhupendra Oliveira MD; Yvon Hogan MD Date Dictated: 05/18/18 1452 Date Transcribed: 05/20/18 1504 Adult Health Clinical Nurse Specialist: Signed 12 LEAD ELECTROCARDIOGRAM Observed: 05/19/2018 Status: F Source: STURGEON 1:35 PM [facility] REPOSITORY [facility] Cardi[facility] [place] [address] 12 Lead EKG 05/17/18 1256 MR#: [id number] Acct: [id number] Name: TAMIA PANDA Rep #: [id number] : 1955 63 From: Bart Blas MD Attending Dr: Yvon Hogan MD Status: DIS IN Ordering Dr: Zuhair Lawrence DO Date: 05/17/18 Location: [facility] Sex: F C Admitted: 05/17/18 Test Reason [...] ECG Confirmed by BART BLAS MD ([id number]), state editor SHYANNE TERRAZAS ([id number]) on 05/19/2018 1:35:00 PM Referred By: Confirmed By:BART BLAS MD 05/19/18 1335 Date Bart Blas MD CC: Bhupendra Oliveira MD; Yvon Hogan MD; Zuhair Lawrence DO Signed PROGRESS Observed: 05/19/2018 Status: COMPLETED Source: RELIANCE 11:50 AM [facility] REPOSITORY HNO ID: [id number] Author: Nanda Rodriguez) Brian Service: (none) Author Type: Physician Type: Progress Notes Filed: 05/19/2018 11:50 AM Note Text: Reviewed. DISCHARGE SUMMARY Observed: 05/18/2018 Status: F Source: STURGEON 5:51 PM [facility] REPOSITORY [facility] Medical Records Department [address] [place] [address] Discharge Summary 05/18/18 1655 MR#: [id number] Acct: [id number] Name: TAMIA PANDA Rep #: [id number] : 1955 63 From: Vinay MORA PCP: Bhupendra Oliveira MD Status: ADM IN Y Location: [place] [id number] <Vinay Bear - Last Filed: 05/18/18 17:04> [...] process. CT/CTA Head W/WO Contrast IMPRESSION: Normal [place] without a demonstrated aneurysm or [...] Bear PA-C under the supervision of Doctor Edison. [] Discharge Diet: Low fat/ Low Cholesterol, [...] minutes Code Visit Inpatient E AND M: [id number] Disch Hosp 05/18/18 1707 <Electronically signed by Vinay MORA> Date Vinay MORA 05/18/18 1751<Electronically signed by Yvon Hogan MD> Cosigner Signature (if applicable): Date Yvon Hogan MD CC: MORGAN Bear; Bhupendra Oliveira MD; Yvon Hogan MD Signed PROGRESS Observed: 05/18/2018 Status: COMPLETED Source: RELIANCE 5:20 PM [facility] REPOSITORY HNO ID: [id number] Author: Saad (Rn) Larry Service: (none) Author Type: Registered Nurse Type: Progress Notes Filed: 05/18/2018 5:25 PM Note Text: PRIMARY CARE COORDINATION FOLLOW-UP NOTE Provider Action/FYI Pt may be discharged today BIPAP being set up with patient now at [facility] Patient identified by name and date of . YES Spoke to JOSEFINA Cook at [facility] Summary: Pt is being set up for BiPAP at the hospital now. Kurt will f/u at pt's home on Fri or She is still scheduled to be discharged today She will be going to stay with her sister on Friday. This is temporary and she still needs assistance in finding an apt. SW contacted Priyank Hurtado CM Service Engine Repairer plan for next outreach: Will follow up after discharge Signature Saad Silvestre RN May 18, 2018 DISCHARGE INSTRUCTION Observed: 05/18/2018 Status: F Source: STURGEON 4:54 PM [facility] REPOSITORY [facility] Medical Records Department [address] [place] [address] Instructions for Home/Discharge Instructions 05/18/18 1651 MR#: [id number] Acct: [id number] Name: TAMIA PANDA Rep #: [id number] : 1955 63 From: Vinay MORA PCP: [...] Oliveira MD Proposed Discharge Date: 05/18/18 05/18/18 3296 <Electronically signed by Vinay MORA> Date Vinay MORA CC: Bhupendra Oliveira MD; Ricardo Kamara MD MODIFIED BARIUM Observed: 05/18/2018 Status: F Source: STURGEON SWALLOW STUDY 4:06 PM [facility] REPOSITORY [facility] Speech Pathology [address] [place] [address] Modified Barium Swallow Study MR#: [id number] Acct: [id number] Name: TAMIA PANDA Rep #: [id number] : 1955 63 From: Luis Alberto Kothari M.A., CFY-BULL CHAIN OPERATOR PRIMARY / SECONDARY DIAGNOSIS: dysphagia (R13.10) REFERRING [...] IMAGE COUNT: [id number] Luis Alberto Kothari M.A., CCC-BULL CHAIN OPERATOR [facility] Speech-Language Pathology Department [email or web address] 05/18/18 5046 <Electronically signed by Luis Alberto Kothari M.A. CFY-BULL CHAIN OPERATOR> Date Luis Alberto Kothari M.A. CFY-BULL CHAIN OPERATOR Co-Signature Required for all Medicare patients Date/Time Co-Signature CC: BEDSIDE GLUCOSE Collected: 05/18/2018 Status: F Source: STURGEON 4:06 PM [facility] REPOSITORY TYPE CODE TESTS RESULT OUT OF REFERENCE UNITS RANGE LAB L501.080 70-110 mg/dL High BEDSIDE GLU 274 Result Comment: MANAGEMENT OF PATIENT CARE PER NURSING PROTOCOL Performed By: #### L501.080 #### [facility] Laboratory Point of Care [address] [place] [address] BEDSIDE GLUCOSE Collected: 05/18/2018 Status: F Source: STURGEON 12:48 PM [facility] REPOSITORY TYPE CODE TESTS RESULT OUT OF REFERENCE UNITS RANGE LAB L501.080 70-110 mg/dL High BEDSIDE GLU 255 Result Comment: MANAGEMENT OF PATIENT CARE PER NURSING PROTOCOL Performed By: #### L501.080 #### [facility] Laboratory Point of Care [address] [place] [address] PROGRESS Observed: 05/18/2018 Status: COMPLETED Source: RELIANCE 11:03 AM [facility] REPOSITORY HNO ID: [id number] Author: Nanda Rodriguez) Brian Service: (none) Author Type: Physician Type: Progress Notes Filed: 05/18/2018 11:03 AM Note Text: Reviewed and agree. Thanks. SWALLOWING FUNCTION Observed: 05/18/2018 Status: F Source: STURGEON W/VIDEO 10:57 AM [facility] REPOSITORY [facility] Imaging Services [address] [place] [address] Swallowing Function w/Video MR#: [id number] Acct: [id number] Name: TAMIA PANDA Jennifer Rep #: [id number] : 1955 F 63 From: Bentley Montejo MD PCP: Bhupendra Oliveira MD Status: DIS IN Study: Swallowing Function w/Video Date of Exam: 05/18/18 Exam# [id number] Ordering Dr: Yvon Hogan MD STUDY: SWALLOWING [...] Bentley Montejo MD at 8:07 EDT Tel [phone], Service support , CC: Bhupendra Oliveira MD; Yvon Hogan MD Adult Health Clinical Nurse Specialist: Signed PROGRESS Observed: 05/18/2018 Status: COMPLETED Source: RELIANCE 10:40 AM [facility] [place] REPOSITORY HNO ID: [id number] Author: Saad (Nina) Larry Service: (none) Author Type: Registered Nurse Type: Progress Notes Filed: 05/18/2018 10:56 AM Note Text: PRIMARY CARE COORDINATION FOLLOW-UP NOTE Provider Action/FYI FYI Pt in [facility] again, MD doesn't want her discharged without BIPAP. PCC and CM working with [facility] to have BIPAP delivered by discharge. Patient identified by name and date of . YES Spoke to NINA Cook CM [facility] and Hilda at [facility] DME Summary: TC to JOSEFINA Cook at [facility], pt is in the hospital again for hypercapnia and they do not want pt discharged without BIPAP in place. Informed PCC spoke to [facility] and faxed more office notes and they said as soon as they have it approved they can deliver a BiPAP that is currently on the shelf. CM states she will call [facility] as well. States pt also was recommended to go to SNF but refused, as usual, and since her lease at apartment is not being renewed pt will be living with her sister. Faxed office notes from past two pulmonary office visits and Dr. Middleton visit on 05/06 to [facility]. TC to [facility] at [facility], asked when pt will be getting her BIPAP? Pt is back in [facility] with same issues from her PARESH and needs her BIPAP kennedi. Asked PCC to fax last notes from [facility]. Once she gets it approved by insurance they will be able to deliver one that is on the shelf. Concerns: [facility] from [facility], left message asking where are we in the process of getting patient her BIPAP? Service Engine Repairer plan for next outreach: Will follow up at discharge Signature Saad Silvestre RN May 18, 2018 BRAIN WITHOUT Observed: 05/18/2018 Status: F Source: STURGEON CONTRAST 9:44 AM [facility] REPOSITORY [facility] Imaging Services [address] [place] [address] Brain without Contrast MR#: [id number] Acct: [id number] Name: TAMIA PANDA Rep #: [id number] : 1955 F 63 From: Jim Whiting MD PCP: Bhupendra Oliveira MD Status: ADM IN Study: Brain without Contrast Date of Exam: 05/18/18 Exam# [id number] Ordering Dr: Yvon Hogan MD STUDY: MRI [...] CC: Bhupendra Oliveira MD; Yvon Hogan MD Adult Health Clinical Nurse Specialist: Signed HISTORY AND PHYSICAL Observed: 05/18/2018 Status: F Source: STURGEON EXAM 7:29 AM [facility] REPOSITORY [facility] Medical Records Department [address] [place] [address] History and Physical 05/17/18 1457 MR#: [id number] Acct: [id number] Name: TAMIA PANDA Jennifer Rep #: [id number] : 1955 63 From: Vinay MORA PCP: Bhupendra Oliveira MD Status: ADM IN Y [id number] <Vinay Bear - Last Filed: 05/17/18 15:12> [...] sons living there. 1 son is in fpc currently. There are 2 daughters who are [...] ligation. 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 Acute metabolic encephalopathy secondary to hypercapnia and hypoglycemia 2. 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 Type 2 [...] daughters. Code Visit Inpatient E AND M: 75584 Init Hosp L3 05/17/18 1513 <Electronically signed by Vinay MORA> Date Vinay MORA 05/18/18 0729<Electronically signed by Shirley Fabian MD> Cosigner Signature: Date (if applicable) Shirley Fabian MD CC: MORGAN Bear; Shirley Fabian MD; Bhupendra Oliveira MD Signed BEDSIDE GLUCOSE Collected: 05/18/2018 Status: F Source: KINJAL 6:51 AM [facility] REPOSITORY TYPE CODE TESTS RESULT OUT OF RANGE REFERENCE UNITS LAB L501.080 70-110 mg/dL Normal BEDSIDE GLU 93 Result Comment: MANAGEMENT OF PATIENT CARE PER NURSING PROTOCOL Performed By: #### L501.080 #### [facility] Point of Care [facility] [address] [address] BASIC METABOLIC Collected: 05/18/2018 Status: F Source: KINJAL PROFILE (BMP) 5:00 AM [facility] REPOSITORY TYPE CODE TESTS RESULT OUT OF [...] 9 Performed By: #### L500.2500, L501.5200 #### [facility] [address] [facility] [place], [address] MAGNESIUM Collected: 05/18/2018 Status: F Source: STURGEON 5:00 AM [facility] REPOSITORY TYPE CODE TESTS RESULT OUT OF RANGE REFERENCE UNITS LAB L501.5200 1.6-2.6 mg/dL Normal MG 1.7 Performed By: #### L500.2500, L501.5200 #### [facility] [address] [place], [address] BEDSIDE GLUCOSE Collected: 05/18/2018 Status: F Source: STURGEON 12:36 AM [facility] REPOSITORY TYPE CODE TESTS RESULT OUT OF RANGE REFERENCE UNITS LAB L501.080 70-110 mg/dL Normal BEDSIDE GLU 98 Result Comment: MANAGEMENT OF PATIENT CARE PER NURSING PROTOCOL Performed By: #### L501.080 #### [facility] Laboratory Point of Care [address] [facility] [place] [address] CNPTOUTREACH Observed: 05/18/2018 Status: COMPLETED Source: RELIANCE 12:00 AM [facility] REPOSITORY Patient Outreach ([facility]) TAMIA PANDA ([id number]) 1955 F Date Time Provider Department 05/18/18 SAAD SILVESTRE (RN) [facility]AMPWS During your visit today, we recorded the following information about you: Saad Silvestre RN 05/18/2018 10:56 AM Signed PRIMARY CARE COORDINATION FOLLOW-UP NOTE Provider Action/FYI WILLEM Pt in [facility] again, MD doesn't want her discharged without BIPAP. PCC and CM working with [facility] to have BIPAP delivered by discharge. Patient identified by name and date of . YES Spoke to NINA Cook [facility] and Hilda at [facility] DME Summary: TC to JOSEFINA Cook at [facility], pt is in the hospital again for hypercapnia and they do not want pt discharged without BIPAP in place. Informed PCC spoke to [facility] and faxed more office notes and they said as soon as they have it approved they can deliver a BiPAP that is currently on the shelf. CM states she will call [facility] as well. States pt also was recommended to go to SNF but refused, as usual, and since her lease at apartment is not being renewed pt will be living with her sister. Faxed office notes from past two pulmonary office visits and Dr. Middleton visit on 05/06 to [facility]. TC to Hilda at [facility], asked when pt will be getting her BIPAP? Pt is back in [facility] with same issues from her [place] and needs her BIPAP kennedi. Asked PCC to fax last notes from [facility]. Once she gets it approved by insurance they will be able to deliver one that is on the shelf. Concerns: TC from [facility], left message asking where are we in the process of getting patient her BIPAP? Service Engine Repairer plan for next outreach: Will follow up [...] COMPOUNDED PRESCRIPTION Please fit for BiPAP mask. [employer] ULTRA BLUE TEST STRIP USE DIRECTED TO [...] [I25.10] INVALID FOR* Diabetes mellitus, type II ([facility]) [E11.9] INVALID FOR* Morbid obesity ([facility]) [E66.01] Hypothyroidism [E03.9] Anxiety [F41.9] Sleep apnea [G47.30] 02/14/2017 Essential hypertension [I10] 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 CHF (congestive heart failure) ([facility]) [I50.9] BPPV (benign paroxysmal positional vertigo) [...] Encounter Status:Closed by SAAD SILVESTRE on 05/18/18 MELCHOR Observed: 05/18/2018 Status: COMPLETED Source: GERMAN 12:00 AM [facility] REPOSITORY [facility] TAMIA PANDA ([id number]) 1955 F Date Time Provider Department 05/18/18 SAAD SILVESTRE (RN) CIERA During your visit today, we recorded the following information about you: Saad Silvestre RN 05/18/2018 5:25 PM Signed PRIMARY CARE COORDINATION FOLLOW-UP NOTE Provider Action/FYI Pt may be discharged today BIPAP being set up with patient now at [facility] Patient identified by name and date of . YES Spoke to JOSEFINA Cook at [facility] Summary: Pt is being set up for BiPAP at the hospital now. Kurt will f/u at pt's home on Fri or She is still scheduled to be discharged today She will be going to stay with her sister on Friday. This is temporary and she still needs assistance in finding an apt. SW contacted Priyank Hurtado CM Service Engine Repairer plan for next outreach: Will follow up [...] [I25.10] INVALID FOR* Diabetes mellitus, type II ([facility]) [E11.9] INVALID FOR* Morbid obesity ([facility]) [E66.01] Hypothyroidism [E03.9] Anxiety [F41.9] Sleep apnea [G47.30] 02/14/2017 Essential hypertension [I10] 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 CHF (congestive heart failure) ([facility]) [I50.9] BPPV (benign paroxysmal positional vertigo) [...] GLUCOSE Collected: 05/17/2018 Status: F Source: KINJAL 9:23 PM [facility] REPOSITORY TYPE CODE TESTS RESULT OUT OF RANGE REFERENCE UNITS LAB L501.080 70-110 mg/dL Normal BEDSIDE GLU 98 Result Comment: MANAGEMENT OF PATIENT CARE PER NURSING PROTOCOL Performed By: #### L501.080 #### [facility] Laboratory Point of Care [address] [place], [place] [address] BLOOD GASES BY CPS Collected: 05/17/2018 Status: F Source: KINJAL 5:42 PM [facility] REPOSITORY TYPE CODE TESTS RESULT OUT OF [...] 5 LAB L9001.1104 Normal Results To HOSP MD LAB L9001.1105 Normal Time Given 1741 LAB [...] ISTAT 97 Performed By: #### L9000.0800 #### [facility] Point of Care [address] [place] [address] BEDSIDE GLUCOSE Collected: 05/17/2018 Status: F Source: STURGEON 4:21 PM [facility] REPOSITORY TYPE CODE TESTS RESULT OUT OF RANGE REFERENCE UNITS LAB L501.080 70-110 mg/dL Normal BEDSIDE GLU 73 Result Comment: MANAGEMENT OF PATIENT CARE PER NURSING PROTOCOL Performed By: #### L501.080 #### [facility] Point of Care [address] [place] [address] EMERGENCY DEPARTMENT Observed: 05/17/2018 Status: F Source: STURGEON SUMMARY 3:15 PM [facility] REPOSITORY [facility] Medical Records Department [address] [place] [address] Emergency Department Summary 05/17/18 1328 MR#: [id number] Acct: [id number] Name: TAMIA PANDA Jennifer Rep #: [id number] : 1955 63 From: Zuhair Lawrence DO [...] hypoglycemia, hypercarbia This note was generated with [employer] dictation software. It may contain incorrect words, spelling, and punctuation that were not noted in review of the chart prior to signing ED Disposition - Plan for ED Patient: Disposition: Acute [facility] Chief Complaint: Neuro S/Sx Diagnosis: Aphasia, Hypoglycemia, Hypercarbia Referrals: Bhupendra Oliveira MD [Primary Care Provider] - What to do if you have Problems For any increased pain, shortness of breath, bleeding, nausea or vomiting, chest pain, or any unexpected problems, contact your Primary Care Provider. Call [facility] ([phone]) or report to the closest Emergency Room. Call 911 if necessary. 05/17/18 6835 <Electronically signed by Zuhair Lawrence DO> Date Zuhair Lawrence DO Cosigner Signature (If Indicated): Date CC: Bhupendra Oliveira MD BLOOD GASES BY CPS Collected: 05/17/2018 Status: F Source: KINJAL 3:05 PM [facility] REPOSITORY TYPE CODE TESTS RESULT OUT OF [...] ISTAT 97 Performed By: #### L9000.0800 #### [facility] Point of Care [address] [place] [address] BEDSIDE GLUCOSE Collected: 05/17/2018 Status: F Source: KINJAL 2:55 PM [facility] REPOSITORY TYPE CODE TESTS RESULT OUT OF REFERENCE UNITS RANGE LAB L501.080 70-110 mg/dL Low alert BEDSIDE GLU 34 Result Comment: Dr Yousif Followed MANAGEMENT OF PATIENT CARE PER NURSING PROTOCOL Performed By: #### L501.080 #### [facility] Point of Care [address] [place] [address] CTA HEAD W/WO Observed: 05/17/2018 Status: F Source: KINJAL CONTRAST 1:38 PM [facility] REPOSITORY [facility] Imaging Services [address] [place] [address] CTA Head W/WO Contrast MR#: [id number] Acct: [id number] Name: TAMIA PANDA Rep #: [id number] : 1955 F 63 From: Zenobia Nunez PCP: Bhupendra Oliveira MD Status: REG ER Study: CTA Head W/WO Contrast Date of Exam: 05/17/18 Exam# [id number] Ordering Dr: Zuhair Lawrence DO STUDY: CTA [...] arteries. CT/CTA Head W/WO Contrast IMPRESSION: Normal [place] without a demonstrated aneurysm or hemodynamically significant stenosis. Electronically Signed: Zenobia Nunez MD at 14:48 EDT Tel , Service support , CC: Bhupendra Oliveira MD; Zuhair Lawrence DO Adult Health Clinical Nurse Specialist: Signed CBC W/DIFF, AUTOMATED Collected: 05/17/2018 Status: F Source: KINJAL 1:09 PM [facility] REPOSITORY TYPE CODE TESTS RESULT OUT OF [...] Lymph 1.14 Performed By: #### L100.0100 #### [facility] [address] [place], [address] PROTHROMBIN TIME W/INR Collected: 05/17/2018 Status: F Source: KINJAL 1:09 PM [facility] REPOSITORY TYPE CODE TESTS RESULT OUT OF RANGE REFERENCE UNITS LAB L300.4150 11.7-14.9 SECONDS High PROTIME 16.0 LAB L300.4200 Normal INR 1.3 Performed By: #### L300.3900, L300.4310 #### [facility] [address] [place], [address] PARTIAL THROMBOPLAST Collected: 05/17/2018 Status: F Source: KINJAL TIME 1:09 PM [facility] REPOSITORY TYPE CODE TESTS RESULT OUT OF RANGE REFERENCE UNITS LAB L300.4310 24.1-36.2 Seconds Normal PTT 33.2 Performed By: #### L300.3900, L300.4310 #### [facility] [address] [place], [address] BASIC METABOLIC Collected: 05/17/2018 Status: F Source: KINJAL PROFILE (BMP) 1:09 PM [facility] REPOSITORY TYPE CODE TESTS RESULT OUT OF [...] 11 Performed By: #### L500.2500, L501.4010 #### [facility] [address] [place], [address] TROPONIN-I Collected: 05/17/2018 Status: F Source: STURGEON 1:09 PM [facility] REPOSITORY TYPE CODE TESTS RESULT OUT OF RANGE REFERENCE UNITS LAB L501.4010 <0.045 ng/mL Normal < 0.015 TROPONIN-I Result Comment: TROPONIN-I EXPECTED VALUES <0.045 Negative 0.045 - 0.590 Consistent with Cardiac Damage > OR = 0.600 Critical Value Not every elevated troponin is indicative of AK. These values should be used with clinical judgement in examining the patient's clinical picture for diagnosis. To establish a diagnosis of AK versus myocardial injury, there must be a demonstrated rise and/or fall in the troponin values, in addition to ischemic symptoms, EKG changes, new regional wall motion abnormality, and/or angiographical evidence. PLEASE NOTE: REFERENCE RANGES EDITED 18 Performed By: #### L500.2500, L501.4010 #### [facility] [address] [facility] [place], [address] BRAIN/HEAD WITHOUT Observed: 05/17/2018 Status: F Source: STURGEON CONTRAST 12:43 PM [facility] REPOSITORY [facility] Imaging Services [address] [place] [address] Brain/Head without Contrast MR#: [id number] Acct: [id number] Name: TAMIA PANDA Rep #: [id number] : 1955 F 63 From: Zenobia Nunez PCP: Bhupendra Oliveira MD Status: REG ER Study: Brain/Head without Contrast Date of Exam: 05/17/18 Exam# [id number] Ordering Dr: Zuhair Lawrence DO STUDY: CT [...] CC: Bhupendra Oliveira MD; Zuhair Lawrence DO Adult Health Clinical Nurse Specialist: Signed CHEST 1 VIEW Observed: 05/17/2018 Status: F Source: KINJAL 12:43 PM [facility] REPOSITORY [facility] Imaging Services [address] [place] [address] Chest 1 View MR#: [id number] Acct: [id number] Name: TAMIA PANDA Jennifer Rep #: [id number] : 1955 F 63 From: Purvi Bradley MD PCP: Bhupendra Oliveira MD Status: REG ER Study: Chest 1 View Date of Exam: 05/17/18 Exam# [id number] Ordering Dr: Zuhair Lawrence DO STUDY: X-RAY [...] CC: Bhupendra Oliveira MD; Zuhair Lawrence DO Adult Health Clinical Nurse Specialist: Signed BEDSIDE GLUCOSE Collected: 05/17/2018 Status: F Source: STURGEON 12:33 PM [facility] REPOSITORY TYPE CODE TESTS RESULT OUT OF REFERENCE UNITS RANGE LAB L501.080 70-110 mg/dL High BEDSIDE GLU 116 Result Comment: MANAGEMENT OF PATIENT CARE PER NURSING PROTOCOL Performed By: #### L501.080 #### [facility] [place] [address] PROGRESS Observed: 05/06/2018 Status: COMPLETED Source: RELIANCE 2:22 PM [facility] RE[facility]IT[facility] HNO ID: [id number] Author: Akiko Garcia LPN Service: (none) Author Type: (none) Type: Progress Notes Filed: 05/06/2018 2:22 PM Note Text: Orders faxed to [facility] for BiPAP machine . Pt is scheduled in office on 06/11 for compliance follow up. CNOV Observed: 05/06/2018 Status: COMPLETED Source: RELIANCE 1:40 PM [facility] REPOSITORY Office Visit (NEMOWS) HENRYSTEVIES Jennifer ([id number]) 1955 F Date Time Provider Department 05/06/18 1:40 PM SHAN MIDDLETON During your visit today, we recorded the following information about you: Pulse Respiration Blood pressure 66/minute 16/minute 100/69 Shan Middleton MD 05/06/2018 1:57 PM Signed [facility] Follow-up/Established patient visit Reason for Visit at [place] : yearly Time Out: 1:56 Time In: 1:46 For this visit, a total cuvr-qb-gmfi time with the patient comprised 10 minutes, with at least 50% of that time devoted to kzky-co-xxkv counseling and coordination of care, with especial emphasis placed on answering the patient?s and/or family?s questions in a form that they can understand and appreciate. Relevant Medications, allergies, hx Reviewed: yes Date of last visit: 03/04/17 with Tahira Insurance: [facility] Medicare Home Location: [place] Psychological/Psychiatric Developments: Slow going. Medical and Neurological [...] Please fax 30 day compliance download to [phone]. Dx: G47.33, G47.39. DME: [facility] COMPOUNDED PRESCRIPTION OCD Titration for [...] COPD PAF Morbid obesity Case Formulation / Bouse (may include pt's hopes, fears, expectations, concerns): The new settings are indicated from [facility]; Time for a new DME locally Actions taken: Motivational Interviewing aspects taken Hearing ougt PDMP Aspect: na New order for bipap 06/09 with 2 liters. Plan: See how doing on new arrangement Follow up with YRIS Ba in 6 weeks. . MD Akiko Moore LPN 05/06/2018 2:22 PM Signed Orders faxed to [facility] for BiPAP machine . Pt is scheduled in office on 06/11 for compliance follow up. Referring Provider: NANDA OLIVEIRA) [[id number]] Allergies As of Date: 05/06/2018 Noted Allergy [...] unspecified vessel or lesion type, unspecified whether suquamish or transplanted heart (HCC) [I25.110] Essential hypertension [I10] Chronic obstructive pulmonary disease, unspecified COPD type (HCC) [J44.9] Chronic congestive heart failure, unspecified heart failure type ([facility]) [I50.9] Order(s):BIPAPBilevel PAP 16/12 cmH2O with [...] [I25.10] INVALID FOR* Diabetes mellitus, type II ([facility]) [E11.9] INVALID FOR* Morbid obesity ([facility]) [E66.01] Hypothyroidism [E03.9] Anxiety [F41.9] Sleep apnea [G47.30] 02/14/2017 Essential hypertension [I10] 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 CHF (congestive heart failure) ([facility]) [I50.9] BPPV (benign paroxysmal positional vertigo) [...] Please fax 30 day compliance download to [phone]. Dx: G47.33, G47.39. DME: [facility]: Reason for discontinue is not on file. Disposition: Return in about 6 weeks (around 06/17/2018). Follow-up and Disposition History Recorded Encounter Status:Closed by MD SHAN MIDDLETON on 05/06/18 PROGRESS Observed: 05/06/2018 Status: COMPLETED Source: RELIANCE 7:56 AM [facility] [place] REPOSITORY O ID: [id number] Author: Shan Middleton Service: (none) Author Type: Physician Type: Progress Notes Filed: 05/06/2018 1:57 PM Note Text: [facility] Follow-up/Established patient visit Reason for Visit at [place] : yearly Time Out: 1:56 Time In: 1:46 For this visit, a total xgbc-qb-appb time with the patient comprised 10 minutes, with at least 50% of that time devoted to tyhs-al-tnzx counseling and coordination of care, with especial emphasis placed on answering the patient?s and/or family?s questions in a form that they can understand and appreciate. Relevant Medications, allergies, hx Reviewed: yes Date of last visit: 03/04/17 with Tahira Insurance: [facility] Medicare Home Location: [place] Psychological/Psychiatric Developments: Slow going. Medical and Neurological [...] Setting(s) 06/08 with 3 L DME Company: [employer] Mask Type: FFM Mask Issues: Will often [...] Please fax 30 day compliance download to [phone]. Dx: G47.33, G47.39. DME: [facility] COMPOUNDED PRESCRIPTION OCD Titration for [...] USE. DX: LABILE BLOOD PRESSURE Blood-Glucose Meter (VetCloudTOUCH ULTRA2) monitoring kit UAD to test blood [...] COPD PAF Morbid obesity Case Formulation / Bouse (may include pt's hopes, fears, expectations, concerns): The new settings are indicated from [facility]; Time for a new DME locally Actions taken: Motivational Interviewing aspects taken Hearing ougt PDMP Aspect: na New order for bipap 06/09 with 2 liters. Plan: See how doing on new arrangement Follow up with YRIS Ba in 6 weeks. . Shan Middleton MD CNOV Observed: 05/01/2018 Status: COMPLETED Source: RELIANCE 11:30 AM [facility] REPOSITORY Office Visit (PULMWS) TAMIA PANDA ([id number]) 1955 F Date Time Provider Department 05/01/18 11:30 AM LIZETTE ACOSTA PULCindiWS During your visit today, we recorded the following information about you: Pulse Respiration Blood pressure Weight 69/minute 12/minute 120/86 95.8 kg Lizette Acosta PA-C 05/04/2018 10:36 AM Signed [facility], 05/01/18: INTERVAL HISTORY: Tamia Panda is a 62 year old female who presents here today secondary to shortness of breath. PMH: PARESH, noncompliant, PE, Hypothyroidism, Hyperlipidemia, GERD, HTN, DM, CAD. Former smoker, quit 2005. 28 pack years. Since the last office visit on 03/20/18 patient was admitted to [facility] on 04/04/18 secondary to altered mental status. [...] Consistently wearing 3 lpm at night. DME: [facility]. Has not been able to [...] edema, orthopnea. GI: No heartburn, dysphagia, diarrhea. 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 Musculoskeletal: No pain. [...] normal. No tremor. DATA REVIEW: CXR, 04/04/18 [facility] read only. Impression: Cardiomegaly and mild pulmonary congestion. CTA, 04/04/18 [facility] read only. Impression: There is no evidence [...] she had a titration done recently at [facility]. Will obtain those records. -Patient has appointment scheduled with Dr. Middleton on FridayMay 06. ? 2. PARESH. -See #1. ? 3. Hypoxia. -It is imperative that you wear your supplemental oxygen continuously. Based on last oximetry, you require 2 lpm. 4. Lung Nodule. -Reviewed CTA from February 08, [address] [facility] which revealed a 1.1 cm opacity in the periphery of right lower lobe. I was unable to find any other images in our system for comparison. -CT chest ordered for 3 month follow up. Patient would prefer to have this done at [facility]. -->If no progression, will repeat CT chest in 3 months. --> If progression, will order a PET scan +/- bronchoscopy with biopsy. I addressed the questions of the patient, and she expressed understanding and acceptance of my answers. Lizette Acosta PA-C [facility] [address] [place] [phone] Lizette Acosta PA-C 05/01/2018 12:02 PM Signed 1. Hypercapnia. -It is imperative that you wear your BiPAP nightly as directed. Patient has been unable to receive BiPAP. -Patient reports that she had a titration done recently at [facility]. Will obtain those records. -Patient has appointment scheduled with Dr. Middleton on FridayMay 06. ? 2. PARESH. -See #1. ? 3. Hypoxia. -It is imperative that you wear your supplemental oxygen continuously. Based on last oximetry, you require 2 lpm. 4. Lung Nodule. -Reviewed CTA from February 08, [address] [facility] which revealed a 1.1 cm opacity in the periphery of right lower lobe. I was unable to find any other images in our system for comparison. -CT chest ordered for 3 month follow up. Patient would prefer to have this done at [facility]. -->If no progression, will repeat CT chest in 3 months. --> If progression, will order a PET scan +/- bronchoscopy with biopsy. 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 Will obtain those records. -Patient has appointment scheduled with Dr. Middleton on FridayMay 06. ? 2. PARESH. -See #1. ? 3. Hypoxia. -It is imperative that you wear your supplemental oxygen continuously. Based on last oximetry, you require 2 lpm. 4. Lung Nodule. -Reviewed CTA from February 08, [address] [facility] which revealed a 1.1 cm opacity in the periphery of right lower lobe. I was unable to find any other images in our system for comparison. -CT chest ordered for 3 month follow up. Patient would prefer to have this done at [facility]. -->If no progression, will repeat CT chest in 3 months. --> If progression, will order a PET scan +/- bronchoscopy with biopsy. Disposition: Return in about 3 months (around 08/01/2018). Follow-up and Disposition History Recorded Encounter Status:Closed by LIZETTE ACOSTA on 05/04/18 PROGRESS Observed: 05/01/2018 Status: COMPLETED Source: RELIANCE 11:26 AM [facility] REPOSITORY HNO ID: [id number] Author: Lizette Acosta Service: (none) Author Type: Physician Piano Instructor Type: Progress Notes Filed: 05/04/2018 10:36 AM Note Text: [facility], 05/01/18: INTERVAL HISTORY: Tamia Panda is a 62 year old female who presents here today secondary to shortness of breath. PMH: PARESH, noncompliant, PE, Hypothyroidism, Hyperlipidemia, GERD, HTN, DM, CAD. Former smoker, quit 2005. 28 pack years. Since the last office visit on 03/20/18 patient was admitted to [facility] on 04/04/18 secondary to altered mental status. [...] Consistently wearing 3 lpm at night. DME: [facility] [place]. Has not been able to get BiPAP [...] edema, orthopnea. GI: No heartburn, dysphagia, diarrhea. 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 Musculoskeletal: No pain. [...] normal. No tremor. DATA REVIEW: CXR, 04/04/18 [facility] read only. Impression: Cardiomegaly and mild pulmonary congestion. CTA, 04/04/18 [facility] read only. Impression: There is no evidence [...] she had a titration done recently at [facility]. Will obtain those records. -Patient has appointment scheduled with Dr. Middleton on FridayMay 06. ? 2. PARESH. -See #1. ? 3. Hypoxia. -It is imperative that you wear your supplemental oxygen continuously. Based on last oximetry, you require 2 lpm. 4. Lung Nodule. -Reviewed CTA from February 08, [address] [facility] which revealed a 1.1 cm opacity in the periphery of right lower lobe. I was unable to find any other images in our system for comparison. -CT chest ordered for 3 month follow up. Patient would prefer to have this done at [facility]. -->If no progression, will repeat CT chest in 3 months. --> If progression, will order a PET scan +/- bronchoscopy with biopsy. I addressed the questions of the patient, and she expressed understanding and acceptance of my answers. Lizette Acosta PA-C [facility] [address] [phone] PROGRESS Observed: 04/23/2018 Status: COMPLETED Source: RELIANCE 8:09 AM [facility] REPOSITORY HNO ID: [id number] Author: Saad Allen) Larry Service: (none) Author Type: Registered Nurse Type: Progress Notes Filed: 04/23/2018 8:11 AM Note Text: TC to AROLDO Lopez, left message re: following up with [facility] regarding moving to new apartment Saad Silvestre RN April 23, 2018 8:10 AM PROGRESS Observed: 04/22/2018 Status: COMPLETED Source: RELIANCE 12:07 PM [facility] REPOSITORY HNO ID: [id number] Author: Nanda Rodriguez) Brian Service: (none) Author Type: Physician Type: Progress Notes Filed: 04/22/2018 12:08 PM Note Text: BS in good range aside from when diet uncontrolled. Continue current regimen. Follow up with June regarding housing. PROGRESS Observed: 04/22/2018 Status: COMPLETED Source: RELIANCE 11:21 AM [facility] REPOSITORY HNO ID: [id number] Author: Saad Allen) Larry Service: (none) Author [...] by 05/22. TC to JOSEFINA Watkins at [facility], informed pt doesn't know how to proceed. June will call patient Patient identified by name and date of . 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 TC to JOSEFINA Watkins at [facility], informed pt doesn't know how to proceed. June will call patient Patient identified by name and date of . 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 Continue current regimen. Follow up with June regarding housing. 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 CHF (congestive heart failure) ([facility]) [I50.9] BPPV (benign paroxysmal positional vertigo) [...] 04/24/18 PROGRESS Observed: 04/13/2018 Status: COMPLETED Source: RELIANCE 4:39 PM [facility] REPOSITORY [facility] ID: [id number] Author: Saad (Rn) Larry Service: (none) Author [...] PCC Plan of Care: PCC Interventions: TC derik Pugh at [facility], informed patient is having a [...] will make a notation and discuss with mail clerks supervisor. Informed if the decision is made that set up cannot occur in home please call PCC, verbalized understanding and agreement. TC to [facility] Home Health, asked if pt is still receiving PT? States no, PT discharged pt on 03/18 Next Office Visit: Visit date not found Plan For Next Call: one week Saad Silvestre RN April 13, 2018 PROGRESS Observed: 04/13/2018 Status: COMPLETED Source: RELIANCE 4:17 PM [facility] REPOSITORY HNO ID: [id number] Author: Katie Rueda) Podlogar Service: (none) Author Type: Nurse Practitioner Type: Progress Notes Filed: 04/13/2018 4:53 PM Note Text: 04/13/2018 Patient presents with: Hospital F/U HPI: Tamia Panda is a 63 year old female who presents here today for Hospital Discharge follow-up. Admitted to [facility] from 04/04-04/07 for complaint of difficulty to [...] and . ? SUMMARY: -Pt discharged from [facility] on 04/07. -Follow up appointment on 04/13 with ARTURO Wilson. -Medication review done partially with patient and with [facility]. -Admitted for: Acute metabolic encephalopathy attributed [...] possibility of patient being transferred to a shelter facility patient declined. ? Morbid obesity with [...] failure (HCC) - AF (paroxysmal atrial fibrillation) ([facility]) - Anxiety - Arthritis Seeing Dr Elliott - Cervical cancer ([facility]) hysterectomy - CHF (congestive heart failure) ([facility]) - Chronic back pain Seeing Dr. Wallace - Constipation - COPD (chronic obstructive pulmonary disease) ([facility]) - Coronary atherosclerosis of suquamish coronary artery Previously seeing Dr. Sosa - DDD (degenerative disc disease), lumbar - DM type 2 (diabetes mellitus, type 2) ([facility]) Seeing Dr. Foley for podiatry - DVT (deep venous thrombosis) ([facility]) Post op INA, BSO. - Dysphagia Seeing Dr. Beaulieu - Emphysema lung ([facility]) - Essential hypertension - Functional dyspepsia - Gastroparesis 2017 mild - GERD without esophagitis - Headache - History of colon polyps 11/28/2016 - Hyperlipidemia - Hypothyroidism - Incontinence Seeing Dr. Chapman - Lung nodule 02/[address] in 3 months - Morbid obesity ([facility]) - Muscle weakness - Nausea - PARESH on CPAP [facility], no longer using as of 10/2017, was not compliant - PE (pulmonary thromboembolism) ([facility]) Post op INA/BSO. - Pneumonia - [...] Please fax 30 day compliance download to [phone]. Dx: G47.33, G47.39. DME: 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 Social History Main Topics [...] G47.33 - plan as in #3 Katie Perazalogjuanito, MORTICIAN INVESTIGATOR.EXPERIMENTAL ROCKET SLED MECHANIC Prescription instructions reviewed with patient as applicable. Patient advised if symptoms do not improve or if symptoms worsen sooner, to contact their primary care physician. Potential red flag symptoms discussed with the patient. Reviewed appropriate action plan to take if red flag symptoms occur. Patient agreeable to treatment plan. BASIC METABOLIC PANL Collected: 04/13/2018 Status: F Source: RELIANCE 2:30 PM [facility] [place] REPOSITORY TYPE CODE TESTS RESULT OUT OF REFERENCE UNITS RANGE LAB GLU 74-99 mg/dL High Glucose 177 Result Comment: The [place] Diabetes Association (ADA) provides guidance for cutoff [...] Standards of Medical Care in Diabetes 2016, [place] Diabetes Association. Diabetes Care. 2016.39(Suppl 1). LAB [...] actual GFR. Performed By: #### BMP #### [employer] [address] [place], [place] [address] CNOV Observed: 04/13/2018 Status: COMPLETED Source: RELIANCE 1:00 PM [facility] REPOSITORY Office Visit (FAMPWS) TAMIA PANDA ([id number]) 1955 F Date Time Provider Department 04/13/18 1:00 PM KATIE MCKEON (LM) FAMPWS During your visit today, we recorded the following information about you: Pulse Respiration Blood pressure Weight 59/minute 18/minute 132/62 96.6 kg Katie Mckeon APRN.CNP 04/13/2018 4:53 PM Signed 04/13/2018 Patient presents with: Hospital F/U HPI: Tamia Panda is a 63 year old female who presents here today for Hospital Discharge follow-up. Admitted to [facility] from 04/04-04/07 for complaint of difficulty to [...] and . ? SUMMARY: -Pt discharged from [facility] on 04/07. -Follow up appointment on 04/13 with ARTURO Wilson. -Medication review done partially with patient and with [facility]. -Admitted for: Acute metabolic encephalopathy attributed [...] possibility of patient being transferred to a shelter facility patient declined. ? Morbid obesity with [...] chronic obstructive pulmonary disease with respiratory failure ([facility]) - AF (paroxysmal atrial fibrillation) ([facility]) - Anxiety - Arthritis Seeing Dr Elliott - Cervical cancer ([facility]) hysterectomy - CHF (congestive heart failure) ([facility]) - Chronic back pain Seeing Dr. Wallace - Constipation - COPD (chronic obstructive pulmonary disease) ([facility]) - Coronary atherosclerosis of suquamish coronary artery Previously seeing Dr. Sosa - DDD (degenerative disc disease), lumbar - DM type 2 (diabetes mellitus, type 2) ([facility]) Seeing Dr. Foley for podiatry - DVT (deep venous thrombosis) ([facility]) Post op INA, BSO. - Dysphagia Seeing Dr. Beaulieu - Emphysema lung ([facility]) - Essential hypertension - Functional dyspepsia - Gastroparesis 2017 mild - GERD without esophagitis - Headache - History of colon polyps 11/28/2016 - Hyperlipidemia - Hypothyroidism - Incontinence Seeing Dr. Chapman - Lung nodule 02/[address] in 3 months - Morbid obesity ([facility]) - Muscle weakness - Nausea - PARESH on CPAP [facility], no longer using as of 10/2017, was not compliant - PE (pulmonary thromboembolism) ([facility]) Post op INA/BSO. - Pneumonia - [...] Please fax 30 day compliance download to [phone]. Dx: G47.33, G47.39. DME: 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 Social History Main Topics [...] - instructed the need to wear oxygen 14/04 - discussed the importance of taking oxygen [...] G47.33 - plan as in #3 Katie Podlogar, MORTICIAN INVESTIGATOR.EXPERIMENTAL ROCKET SLED MECHANIC Prescription instructions reviewed with patient as applicable. Patient advised if symptoms do not improve or if symptoms worsen sooner, to contact their primary care physician. Potential red flag symptoms discussed with the patient. Reviewed appropriate action plan to take if red flag symptoms occur. Patient agreeable to treatment plan. Referring Provider: NANDA OLIVEIRA) [[id number]] Allergies As of Date: 04/13/2018 Noted Allergy [...] G47.33] Order(s):BASIC METABOLIC PNL [SQBMP] Order #: [id number] FUTURE insulin glargine (LANTUS SOLOSTAR U-100 INSULIN) [...] COMPOUNDED PRESCRIPTION Please fit for BiPAP mask. 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 CHF (congestive heart failure) ([facility]) [I50.9] BPPV (benign paroxysmal positional vertigo) [...] 04/13/18 MELCHOR Observed: 04/13/2018 Status: COMPLETED Source: RELIANCE 12:00 AM [facility] REPOSITORY Patient Outreach (FAMPWS) TAMIA PANDA ([id number]) 1955 F Date Time Provider Department 04/13/18 [...] PCC Plan of Care: PCC Interventions: TC derik Pugh at [facility], informed patient is having a [...] will make a notation and discuss with mail clerks supervisor. Informed if the decision is made that set up cannot occur in home please call PCC, verbalized understanding and agreement. TC to [facility], asked if pt is still [...] Date Reviewed: 04/13/2018 Reviewed by: Yessi Sanchez LAUNCH LEADER - Fully Assessed Reason for Visit: Transition [...] COMPOUNDED PRESCRIPTION Please fit for BiPAP mask. 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 CHF (congestive heart failure) ([facility]) [I50.9] BPPV (benign paroxysmal positional vertigo) [...] 04/13/18 PROGRESS Observed: 04/08/2018 Status: COMPLETED Source: RELIANCE 1:27 PM [facility] [place] REPOSITORY HNO ID: [id number] Author: Nanda Rodriguez) Brian Service: (none) Author Type: Physician Type: Progress Notes Filed: 04/08/2018 1:28 PM Note Text: Reviewed. Thanks. PROGRESS Observed: 04/08/2018 Status: COMPLETED Source: RELIANCE 10:39 AM [facility] REPOSITORY HNO ID: [id number] Author: Saad Allen) Larry Service: (none) Author [...] name and . SUMMARY: -Pt discharged from [facility] on 04/07. -Follow up appointment on 04/13 with ARTURO Wilson. -Medication review done partially with patient and with [facility]. -Admitted for: Acute metabolic encephalopathy attributed [...] possibility of patient being transferred to a shelter facility patient declined. Morbid obesity with BMI [...] her BiPAP at night Saad Silvestre RN CNPTOUTREACH Observed: 04/08/2018 Status: COMPLETED Source: RELIANCE 12:00 AM [facility] REPOSITORY Patient Outreach (FAMPWS) TAMIA PANDA ([id number]) 1955 F Date Time Provider Department 04/08/18 SAAD SILVESTRE (RN) FAMPWS During your visit [...] name and . SUMMARY: -Pt discharged from [facility] on 04/07. -Follow up appointment on 04/13 with ARTURO Wilson. -Medication review done partially with patient and with [facility]. -Admitted for: Acute metabolic encephalopathy attributed [...] possibility of patient being transferred to a shelter facility patient declined. Morbid obesity with BMI [...] as of 04/08/2018 Sig: OMEPRAZOLE 20 MG CAPSULE,MRAIA EUGENIA* Take 1 capsule by mouth once [...] [I25.10] INVALID FOR* Diabetes mellitus, type II ([facility]) [E11.9] INVALID FOR* Morbid obesity ([facility]) [E66.01] Hypothyroidism [E03.9] Anxiety [F41.9] Sleep apnea [G47.30] 02/14/2017 Essential hypertension [I10] 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 CHF (congestive heart failure) ([facility]) [I50.9] BPPV (benign paroxysmal positional vertigo) [...] LEAD ELECTROCARDIOGRAM Observed: 04/07/2018 Status: F Source: STURGEON 1:45 PM [facility] REPOSITORY [facility] Cardiovascular Services [address] [place] [address] 12 Lead EKG 04/04/18 1543 MR#: [id number] Acct: [id number] Name: TAMIA PANDA Rep #: [id number] : 1955 63 From: Bart Blas MD Attending Dr: Yvon Hogan MD Status: DIS IN Ordering Dr: Keshawn Miguel MD Date: 04/04/18 Location: [facility] Sex: F C Admitted: 04/04/18 Test Reason : SOB Blood Pressure : / mmHG Vent. Rate : 064 BPM Atrial Rate : 061 BPM P-R Int : 000 ms QRS Dur : 080 ms QT Int : 452 ms P-R-T Axes : 000 -12 095 degrees QTc Int : 466 ms Atrial fibrillation Abnormal ECG Confirmed by BART BLAS MD ([id number]), state editor SHYANNE TERRAZAS ([id number]) on 04/07/2018 1:44:58 PM Referred By: NICA Confirmed By:BART BLAS MD 04/07/18 1345 Date Bart Blas MD CC: Bhupendra Oliveira MD; Yvon Hogan MD; Keshawn Miguel MD Signed PROGRESS Observed: 04/07/2018 Status: COMPLETED Source: RELIANCE 11:46 AM [facility] [place] REPOSITORY HNO ID: [id number] Author: Nanda Rodriguez) Brian Service: (none) Author Type: Physician Type: Progress Notes Filed: 04/07/2018 11:46 AM Note Text: Reviewed and agree. TCM? PROGRESS Observed: 04/07/2018 Status: COMPLETED Source: RELIANCE 10:35 AM [facility] REPOSITORY O ID: [id number] Author: Saad (Nina) Larry Service: (none) Author Type: Registered Nurse Type: Progress Notes Filed: 04/07/2018 10:39 AM Note Text: PRIMARY CARE COORDINATION QUICK NOTE Provider Action/FYI Patient is being discharged today from [facility] She is scheduled for sleep study on 04/13 and vznarcmn-cm-yjy wrote down date and time. Patient identified by name and date . TC from JOSEFINA Cook at [facility], states sleep study had been cancelled because of [facility] computer issues and pt never responded to messages to reschedule. Patient is scheduled for sleep study on 04/13 and tuwxnfwy-xx-fpc wrote down date and time. Discussed it is imperative for pt to get the sleep study to restart BiPAP so we can prevent further hospital readmissions, verbalized agreement. Saad Silvestre RN April 07, 2018 10:39 AM DISCHARGE SUMMARY Observed: 04/07/2018 Status: F Source: STURGEON 8:50 AM [facility] REPOSITORY [facility] Medical Records Department [address] [place] [address] Discharge Summary 04/07/18 0849 MR#: [id number] Acct: [id number] Name: TAMIA PANDA Jennifer Rep #: [id number] : 1955 63 From: Yvon Hogan MD PCP: Bhupendra Oliveira MD Status: ADM IN Location: [place] [address] Discharge Date and Diagnosis - Problem List [...] possibility of patient being transferred to a shelter facility patient declined. 4. Paroxysmal A. fib [...] PO DAILY@0800 02/03/18 Fluticasone 0.05% [Flonase Nasal [place]] 2 spray NASAL DAILY 02/03/18 Furosemide [Lasix] [...] 2- 3 days Please Follow Up With: [facility] for sleep study Disposition: Home Minutes spent on discharge:: 35 Patient Condition:: Stable Medical Necessity - Tobacco Use Smoking Status: Former smoker Tobacco Use: Non-smoker Meaningful Use Info Meaningful Use Diagnoses (Choose all that apply): None applicable Code Visit Inpatient E AND M: 74306 Disch Hosp 04/07/18 0850 <Electronically signed by Yvon Hogan MD> Date Yvon Hogan MD Cosigner Signature (if applicable): Date CC: Bhupendra Oliveira MD; Yvon Hogan MD Signed DISCHARGE INSTRUCTION Observed: 04/07/2018 Status: F Source: STURGEON 8:48 AM [facility] REPOSITORY [facility] Medical Records Department [address] [place] [address] Instructions for Home/Discharge Instructions 04/07/18 0844 MR#: [id number] Acct: [id number] Name: TAMIA PANDA Jennifer Rep #: [id number] : 1955 63 From: Yvon Hogan MD [...] PO DAILY@0800 02/03/18 Fluticasone 0.05% [Flonase Nasal [place]] 2 spray NASAL DAILY 02/03/18 Furosemide [Lasix] [...] appointment, if applicable. Please Follow Up With: [facility] for sleep study Proposed Discharge Date: 04/07/18 04/07/18 0848 <Electronically signed by Yvon Hogan MD> Date Yvon Hogan MD CC: Bhupendra Oliveira MD BEDSIDE GLUCOSE Collected: 04/07/2018 Status: F Source: KINJAL 6:47 AM [facility] REPOSITORY TYPE CODE TESTS RESULT OUT OF REFERENCE UNITS RANGE LAB L501.080 70-110 mg/dL High BEDSIDE GLU 146 Result Comment: MANAGEMENT OF PATIENT CARE PER NURSING PROTOCOL Performed By: #### L501.080 #### [facility] Laboratory Point of Care [address] [place], [place] [address] CNPTOUTREACH Observed: 04/07/2018 Status: COMPLETED Source: ROJAS 12:00 AM [facility] REPOSITORY Patient Outreach (FAMPWS) TAMIA PANDA ([id number]) 1955 F Date Time Provider Department 04/07/18 SAAD SILVESTRE (RN) CRYSTALPWS During your visit today, we recorded the following information about you: Saad Silvestre RN 04/07/2018 10:39 AM Signed PRIMARY CARE COORDINATION QUICK NOTE Provider Action/FYI Patient is being discharged today from [facility] She is scheduled for sleep study on 04/13 and ncwzxfeu-er-hxk wrote down date and time. Patient identified by name and date . TC from JOSEFINA Cook at [facility], states sleep study had been cancelled because of [facility] computer issues and pt never responded to messages to reschedule. Patient is scheduled for sleep study on 04/13 and qtkisvop-zb-dxi wrote down date and time. Discussed it [...] [I25.10] INVALID FOR* Diabetes mellitus, type II ([facility]) [E11.9] INVALID FOR* Morbid obesity ([facility]) [E66.01] Hypothyroidism [E03.9] Anxiety [F41.9] Sleep apnea [G47.30] 02/14/2017 Essential hypertension [I10] 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 CHF (congestive heart failure) ([facility]) [I50.9] BPPV (benign paroxysmal positional vertigo) [...] BEDSIDE GLUCOSE Collected: 04/06/2018 Status: F Source: STURGEON 9:16 PM [facility] REPOSITORY TYPE CODE TESTS RESULT OUT OF REFERENCE UNITS RANGE LAB L501.080 70-110 mg/dL High BEDSIDE GLU 114 Result Comment: MANAGEMENT OF PATIENT CARE PER NURSING PROTOCOL Performed By: #### L501.080 #### [facility] Laboratory Point of Care [address] [place], [place] [address] BEDSIDE GLUCOSE Collected: 04/06/2018 Status: F Source: STURGEON 5:03 PM [facility] REPOSITORY TYPE CODE TESTS RESULT OUT OF REFERENCE UNITS RANGE LAB L501.080 70-110 mg/dL High BEDSIDE GLU 120 Result Comment: Dr Orders Followed Insulin Given MANAGEMENT OF PATIENT CARE PER NURSING PROTOCOL Performed By: #### L501.080 #### [facility] Point of Care [address] [facility] [place] [address] PROGRESS Observed: 04/06/2018 Status: COMPLETED Source: RELIANCE 2:51 PM [facility] REPOSITORY HNO ID: [id number] Author: Nanda Rodriguez) Brian Service: (none) Author Type: Physician Type: Progress Notes Filed: 04/06/2018 2:51 PM Note Text: Reviewed. Thanks! PROGRESS Observed: 04/06/2018 Status: COMPLETED Source: RELIANCE 2:38 PM [facility] REPOSITORY HNO ID: [id number] Author: Saad (Rn) Larry Service: (none) Author Type: Registered Nurse Type: Progress Notes Filed: 04/06/2018 2:46 PM Note Text: PRIMARY CARE COORDINATION FOLLOW-UP NOTE Provider Action/FYI TC to JOSEFINA Cook at [facility], informed pt cannot resume wearing BiPAP at home until she has a sleep study. [facility] had cancelled her last scheduled sleep study. Asked if CM can make sure pt has sleep study scheduled before pt leaves the hospital. Discussed if pt doesn't start wearing BiPAP at home she will continue to have re-admissions to their hospital. Verbalized understanding and agreement. Patient identified by name and date of . YES Spoke to NINA Cookjourneyman electrician at [facility] Summary: Pt currently inpatient at [facility] with mental status alteration, acute on chronic respiratory failure with hypoxia and hypercapnia and hypoglycemia. Service Engine Repairer plan for next outreach: Will follow up at hospital discharge Signature Saad Silvestre RN April 06, 2018 BEDSIDE GLUCOSE Collected: 04/06/2018 Status: F Source: KINJAL 11:33 AM [facility] REPOSITORY TYPE CODE TESTS RESULT OUT OF REFERENCE UNITS RANGE LAB L501.080 70-110 mg/dL High BEDSIDE GLU 233 Result Comment: Dr Yousif Followed Insulin Given MANAGEMENT OF PATIENT CARE PER NURSING PROTOCOL Performed By: #### L501.080 #### [facility] Point of Care [address] [place], [place] [address] BASIC METABOLIC Collected: 04/06/2018 Status: F Source: STURGEON PROFILE (BMP) 10:25 AM [facility] REPOSITORY Order Comment: PT EATING BREAKFAST WILL [...] GAP 6 Performed By: #### L500.2500 #### [facility] [address] [facility]. [place], [place], [address] BEDSIDE GLUCOSE Collected: 04/06/2018 Status: F Source: STURGEON 6:59 AM [facility] REPOSITORY TYPE CODE TESTS RESULT OUT OF REFERENCE UNITS RANGE LAB L501.080 70-110 mg/dL High BEDSIDE GLU 127 Result Comment: MANAGEMENT OF PATIENT CARE PER NURSING PROTOCOL Performed By: #### L501.080 #### [facility] Point of Care [address] [place], [place] [address] CNPTOUTREACH Observed: 04/06/2018 Status: COMPLETED Source: GERMAN 12:00 AM [facility] REPOSITORY Patient Outreach (FAMPWS) TAMIA PANDA ([id number]) 1955 F Date Time Provider Department 04/06/18 SAAD SILVESTRE (RN) FAMPWS During your visit today, we recorded the following information about you: Saad Silvestre RN 04/06/2018 2:46 PM Signed PRIMARY CARE COORDINATION FOLLOW-UP NOTE Provider Action/FYI TC to JOSEFINA Cook at [facility], informed pt cannot resume wearing BiPAP at home until she has a sleep study. [facility] had cancelled her last scheduled sleep study. Asked if CM can make sure pt has sleep study scheduled before pt leaves the hospital. Discussed if pt doesn't start wearing BiPAP at home she will continue to have re-admissions to their hospital. Verbalized understanding and agreement. Patient identified by name and date of . YES Spoke to NINA Cookjourneyman electrician at [facility] Summary: Pt currently inpatient at [facility] with mental status alteration, acute on chronic respiratory failure with hypoxia and hypercapnia and hypoglycemia. Service Engine Repairer plan for next outreach: Will follow up [...] Acosta - Fully Assessed Reason for Visit: [facility] Follow Up [3610] Cmt: Inpatient [facility] Prescriptions as of 04/06/2018 Sig: OMEPRAZOLE 20 [...] COMPOUNDED PRESCRIPTION Please fit for BiPAP mask. ONEOccipitalUCH ULTRA BLUE TEST STRIP USE DIRECTED TO [...] [I25.10] INVALID FOR* Diabetes mellitus, type II ([facility]) [E11.9] INVALID FOR* Morbid obesity ([facility]) [E66.01] Hypothyroidism [E03.9] Anxiety [F41.9] Sleep apnea [G47.30] 02/14/2017 Essential hypertension [I10] 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 CHF (congestive heart failure) ([facility]) [I50.9] BPPV (benign paroxysmal positional vertigo) [...] 04/05/2018 Status: F Source: KINJAL 10:16 PM [facility] REPOSITORY TYPE CODE TESTS RESULT OUT OF REFERENCE UNITS RANGE LAB L501.080 70-110 mg/dL High BEDSIDE GLU 111 Result Comment: MANAGEMENT OF PATIENT CARE PER NURSING PROTOCOL Performed By: #### L501.080 #### [facility] Point of Care [address] [place] [address] BEDSIDE GLUCOSE Collected: 04/05/2018 Status: F Source: KINJAL 5:04 PM [facility] REPOSITORY TYPE CODE TESTS RESULT OUT OF REFERENCE UNITS RANGE LAB L501.080 70-110 mg/dL High BEDSIDE GLU 189 Result Comment: MANAGEMENT OF PATIENT CARE PER NURSING PROTOCOL Performed By: #### L501.080 #### [facility] Point of Care [address] [place] [address] BEDSIDE GLUCOSE Collected: 04/05/2018 Status: F Source: KINJAL 11:31 AM [facility] REPOSITORY TYPE CODE TESTS RESULT OUT OF REFERENCE UNITS RANGE LAB L501.080 70-110 mg/dL High BEDSIDE GLU 274 Result Comment: MANAGEMENT OF PATIENT CARE PER NURSING PROTOCOL Performed By: #### L501.080 #### [facility] Point of Care [address] [place] [address] BEDSIDE GLUCOSE Collected: 04/05/2018 Status: F Source: KINJAL 8:59 AM [facility] REPOSITORY TYPE CODE TESTS RESULT OUT OF RANGE REFERENCE UNITS LAB L501.080 70-110 mg/dL Normal BEDSIDE GLU 96 Result Comment: MANAGEMENT OF PATIENT CARE PER NURSING PROTOCOL Performed By: #### L501.080 #### [facility] Point of Care [address] [place] [address] HISTORY AND PHYSICAL Observed: 04/05/2018 Status: F Source: KINJAL EXAM 7:46 AM [facility] REPOSITORY [facility] Medical Records Department [address] [place] [address] History and Physical 04/04/18 1724 MR#: [id number] Acct: [id number] Name: TAMIA PNADA Rep #: [id number] : 1955 63 From: Shirley Fabian MD PCP: Bhupendra Oliveira MD Status: ADM IN Location: [place] [address] Problem List (1) GERD (gastroesophageal reflux disease) [...] ligation. 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 Episode of hypoglycemia [...] SC Code Visit Inpatient E AND M: 96314 Init Hosp L3 04/05/18 0746 <Electronically signed by Shirley Fabian MD> Date [facility]: Date (if applicable) CC: Shirley Fabian MD; Bhupendra Oliveira MD Signed BEDSIDE GLUCOSE Collected: 04/05/2018 Status: F Source: KINJAL 5:53 AM [facility] REPOSITORY TYPE CODE TESTS RESULT OUT OF RANGE REFERENCE UNITS LAB L501.080 70-110 mg/dL Normal BEDSIDE GLU 100 Result Comment: MANAGEMENT OF PATIENT CARE PER NURSING PROTOCOL Performed By: #### L501.080 #### [facility] Point [facility] Care [address] [place] [address] BASIC METABOLIC Collected: 04/05/2018 Status: F Source: KINJAL PROFILE (BMP) 5:10 AM [facility] REPOSITORY TYPE CODE TESTS RESULT OUT OF [...] GAP 5 Performed By: #### L500.2500 #### [facility] [address] [place], [place], [address] BEDSIDE GLUCOSE Collected: 04/05/2018 Status: F Source: KINJAL 4:00 AM [facility] REPOSITORY TYPE CODE TESTS RESULT OUT OF RANGE REFERENCE UNITS LAB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 Rodriguez) Brian Service: (none) Author Type: Physician Type: Progress Notes Filed: 02/23/2018 10:32 AM Note Text: Chief Complaint No chief complaint on file. HPI Tamia Panda is a 63 year old female who presents here today for Hospital Discharge Follow up. Patient was admitted on [address] [facility] for delirium, hypercapnia, COPD exacerbation, human meta pneumovirus infection, and uncontrolled PARESH. Was seen here on 02/03 by ARTURO Wilson Podnorberto and was found to have altered mental status and SOB and was taken by marie to [facility] ED. Admitted from 02/03 to 02/05 for [...] chronic obstructive pulmonary disease with respiratory failure ([facility]) - AF (paroxysmal atrial fibrillation) ([facility]) - Anxiety - Arthritis Seeing Dr Elliott - Cervical cancer ([facility]) hysterectomy - CHF (congestive heart failure) ([facility]) - Chronic back pain Seeing Dr. Wallace - Constipation - COPD (chronic obstructive pulmonary disease) ([facility]) - Coronary atherosclerosis of suquamish coronary artery Previously seeing Dr. Sosa - DDD (degenerative disc disease), lumbar - DM type 2 (diabetes mellitus, type 2) ([facility]) Seeing Dr. Foley for podiatry - DVT (deep venous thrombosis) ([facility]) Post op INA, BSO. - Dysphagia Seeing Dr. Beaulieu - Emphysema lung ([facility]) - Essential hypertension - Functional dyspepsia - Gastroparesis 2016 mild - GERD without esophagitis - Headache - History of colon polyps 11/28/2016 - Hyperlipidemia - Hypothyroidism - Incontinence Seeing Dr. Chapman - Morbid obesity ([facility]) - Muscle weakness - Nausea - PARESH on CPAP [facility], no longer using as of 10/2017, was not compliant - PE (pulmonary thromboembolism) ([facility]) Post op INA/BSO. - Pneumonia - [...] Please fax 30 day compliance download to [phone]. Dx: G47.33, G47.39. DME: 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 Social History Main Topics [...] help with mobility and prevent falls. - NON-[facility] I spent 40 minutes in the visit, with more than 50% of the total kgxx-iy-aeau time of the visit in counseling / coordination of care. Nanda Oliveira MD CNOV Observed: 02/20/2018 Status: COMPLETED Source: RELIANCE 10:40 AM [facility] REPOSITORY Office Visit (FAMPWS) TAMIA PANDA ([id number]) 1955 F Date Time Provider Department 02/20/18 10:40 AM NANDA OLIVEIRA) FAMPWS During your [...] was admitted on 2 separate occasions at [facility] for delirium, hypercapnia, COPD exacerbation, human meta pneumovirus infection, and uncontrolled PARESH. Was seen here on 02/03 by OPERATIONS AND MAINTENANCE TECHNICAN Katie Podlogjuanito and was found to have altered mental status and SOB and was taken by squad to [facility] ED. Admitted from 02/03 to 02/05 for [...] chronic obstructive pulmonary disease with respiratory failure ([facility]) - AF (paroxysmal atrial fibrillation) ([facility]) - Anxiety - Arthritis Seeing Dr Elliott - Cervical cancer ([facility]) hysterectomy - CHF (congestive heart failure) ([facility]) - Chronic back pain Seeing Dr. Wallace - Constipation - COPD (chronic obstructive pulmonary disease) ([facility]) - Coronary atherosclerosis of suquamish coronary artery Previously seeing Dr. Sosa - DDD (degenerative disc disease), lumbar - DM type 2 (diabetes mellitus, type 2) ([facility]) Seeing Dr. Foley for podiatry - DVT (deep venous thrombosis) ([facility]) Post op INA, BSO. - Dysphagia Seeing Dr. Beaulieu - Emphysema lung ([facility]) - Essential hypertension - Functional dyspepsia - Gastroparesis 2016 mild - GERD without esophagitis - Headache - History of colon polyps 11/28/2016 - Hyperlipidemia - Hypothyroidism - Incontinence Seeing Dr. Chapman - Morbid obesity ([facility]) - Muscle weakness - Nausea - PARESH on CPAP [facility], no longer using as of 10/2017, was not compliant - PE (pulmonary thromboembolism) ([facility]) Post op INA/BSO. - Pneumonia - [...] Please fax 30 day compliance download to [phone]. Dx: G47.33, G47.39. DME: 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 Social History Main Topics [...] help with mobility and prevent falls. - [facility] I spent 40 minutes in the visit, with more than 50% of the total gtao-zw-douh time of the visit in counseling / [...] [Z09] Nausea [R11.0] Age-related physical debility [R54] Order(s):[facility] [[id number]] Order #: [id number]: 1 Prescriptions as of 02/20/2018 Sig: X [...] [I25.10] INVALID FOR* Diabetes mellitus, type II ([facility]) [E11.9] INVALID FOR* Morbid obesity ([facility]) [E66.01] Hypothyroidism [E03.9] Anxiety [F41.9] Sleep apnea [G47.30] 02/14/2017 Essential hypertension [I10] 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 CHF (congestive heart failure) ([facility]) [I50.9] BPPV (benign paroxysmal positional vertigo) [...] Status:Closed by NANDA OLIVEIRA MD on 02/23/18 LMTOANA Observed: 02/20/2018 Status: COMPLETED Source: RELIANCE 12:00 AM [facility] REPOSITORY Patient Outreach (FAMPWS) TAMIA PANDA ([id number]) 1955 F Date Time Provider Department 02/20/18 SAAD SILVESTRE) CRYSTALPDEVYN During your visit today, we recorded the [...] Ma - Fully Assessed Reason for Visit: Machine Baster-In Office Visit [2172] Prescriptions as of 02/20/2018 Sig: PROMETHAZINE 25 [...] COMPOUNDED PRESCRIPTION Please fit for BiPAP mask. VetCloudTOUCH ULTRA BLUE TEST STRIP USE DIRECTED TO [...] [I25.10] INVALID FOR* Diabetes mellitus, type II ([facility]) [E11.9] INVALID FOR* Morbid obesity ([facility]) [E66.01] Hypothyroidism [E03.9] Anxiety [F41.9] Sleep apnea [G47.30] 02/14/2017 Essential hypertension [I10] 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 CHF (congestive heart failure) ([facility]) [I50.9] BPPV (benign paroxysmal positional vertigo) [...] 02/16/2018 Status: F Source: KINJAL 5:51 PM [facility] REPOSITORY [facility] Medical Records Department [address] [place] [address] Discharge Summary 02/05/18 1121 MR#: [id number] Acct: [id number] Name: TAMIA PANDA Rep #: [id number] : 1955 63 From: Shirley Fabian MD PCP: Bhupendra Oliveira MD Status: DIS IN Y Location: [place] [address] ADDENDUM by Shirley Fabian MD on 02/16/18 [...] Gurwinder Canela DO at 16:50 EDT Tel [phone], Service support , Chest X-Ray 02/04/18 05:55 IMPRESSION: Persistent pulmonary venous congestion and prominent interstitial markings, cannot exclude underlying edema. Mild cardiomegaly. Electronically Signed: Chantel Mahajan MD at 8:58 EDT Tel , Service support , Pulmonology Operations: None Procedures: None Summary of Care Provided: 63-year-old female with multiple comorbidities, recently underwent EGD and pyloromyotomy 4 days prior in the [facility] comes in with complaints of shortness of [...] PO DAILY@0800 02/03/18 Fluticasone 0.05% [Flonase Nasal [place]] 2 spray NASAL DAILY 02/03/18 Furosemide [Lasix] [...] Use Smoking Status: Former smoker - 40 zv-rn-oupbpvw Tobacco Use: Cigarettes Meaningful Use Info Meaningful Use Diagnoses (Choose all that apply): None applicable Code Visit Inpatient E AND M: 63690 Disch Hosp 02/06/18 1642 <Electronically signed by Shirley Fabian MD> Date Shirley Fabian MD Cosigner Signature (if applicable): Date CC: Shirley Fabian MD; Bhupendra Oliveira MD Signed PROGRESS Observed: 02/13/2018 Status: COMPLETED Source: RELIANCE 9:22 AM [facility] [place] REPOSITORY O ID: [id number] Author: Saad Allen) Larry Service: (none) Author Type: Registered Nurse Type: Progress Notes Filed: 02/13/2018 10:04 AM Note Text: PRIMARY CARE COORDINATION FOLLOW-UP NOTE Provider Action/FYI FYI Patient identified by name and date of . YES Spoke to patient Summary: TC to patient, [facility] is going to send patient the previous brand of nasal cannulas that have the harder plastic slide on tubing. Saad Silvestre RN Service Engine Repairer plan for next outreach: Will follow up one week Signature Saad Silvestre RN February 13, 2018 PROGRESS Observed: 02/12/2018 Status: COMPLETED Source: RELIANCE 4:37 PM [facility] REPOSIT[facility] HNO ID: [id number] Author: Fernanda Angeline Reyes LPN Service: (none) Author Type: (none) Type: Progress Notes Filed: 02/13/2018 10:04 AM Note Text: Patient called and she wanted you to know she received the tubing Friday. Fernanda Marcus Amy GONZALEZ PROGRESS Observed: 02/12/2018 Status: COMPLETED Source: RELIANCE 3:52 PM [facility] REPOSITORY HNO ID: [id number] Author: Nanda Rodriguez) Brian Service: (none) Author Type: Physician Type: Progress Notes Filed: 02/13/2018 10:04 AM Note Text: Med updates filed. Reviewed. PROGRESS Observed: 02/12/2018 Status: COMPLETED Source: RELIANCE 2:28 PM [facility] REPOSITORY HNO ID: [id number] Author: Saad Allen) Larry Service: (none) Author [...] contact with patient post discharge, spoke to gabrielle, KENNEDY Greenfield nurse from [facility]. Patient identified by name and . SUMMARY: -Pt discharged from [facility] on 02/11. -Follow up appointment on 02/20. [...] in place. Asking for PCC to call [facility] to send old type of tubing. TC to Kitty at [facility], discussed nasal cannula issue and [...] in 3 months. Also follow-up with her personal care worker Dr. Ramos with [facility] for repeat imaging studies 7. Hypokalemia. Low potassium was corrected. K+ 4.0 at the time of discharge. Bhupendra Oliveira MD [Primary Care Provider] - Please follow up with your Primary Care Physician in: 5 to 7 days. Disposition: Home with Home Health Saad Silvestre RN February 12, 2018 3:23 PM LMTOCHINMAYEANELI Observed: 02/12/2018 Status: COMPLETED Source: RELIANCE 12:00 AM [facility] REPOSITORY Patient Outreach (FAMPWS) TAMIA PANDA ([id number]) 1955 F Date Time Provider Department 02/12/18 SAAD SILVESTRE (NINA) FAMPWS During your visit [...] spoke to patient, KENNEDY Greenfield nurse from [facility]. Patient identified by name and . SUMMARY: -Pt discharged from [facility] on 02/11. -Follow up appointment on 02/20. [...] in place. Asking for PCC to call [facility] to send old type of tubing. TC to Kitty at [facility], discussed nasal cannula issue and [...] in 3 months. Also follow-up with her personal care worker Dr. Ramos with [facility] for repeat imaging [...] Spoke to patient Summary: [facility] brand of nasal cannulas that have the harder plastic slide on tubing. Saad Silvestre RN Service Engine Repairer plan for next outreach: Will follow up [...] Pseudoephedrine-guaiFENesin (MUCINEX D MAXIMUM STRENGTH) 120-1,200 mg Um23Plug 1 tablet by mouth twice daily.Disp: Rfl: [...] [I25.10] INVALID FOR* Diabetes mellitus, type II ([facility]) [E11.9] INVALID FOR* Morbid obesity ([facility]) [E66.01] Hypothyroidism [E03.9] Anxiety [F41.9] Sleep apnea [G47.30] 02/14/2017 Essential hypertension [I10] 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 CHF (congestive heart failure) ([facility]) [I50.9] BPPV (benign paroxysmal positional vertigo) [...] by mouth twice daily. Encounter Status:Closed by SAAD SILVESTRE on 02/13/18 DISCHARGE SUMMARY Observed: 02/11/2018 Status: F Source: KINJAL 2:54 PM [facility] REPOSITORY [facility] Medical Records Department [address] [place] [address] Discharge Summary 02/11/18 1441 MR#: [id number] Acct: [id number] Name: TAMIA PADNA Rep #: [id number] : 1955 63 From: Shruthi Christie MD PCP: Bhupendra Oliveira MD Status: ADM IN Location: [place] [address] Discharge Date and Diagnosis - Problem List [...] Sutherland MD at 23:31 EDT Tel Direct: [phone], Service support , Watch Dial Stoner: JULIENNE Ruiz. Operations: None Procedures: None Summary of Care [...] distal LAD 60% mid circumflex occluded with ccdhw-jk-[id number] collateral. Mid RCA less than 30%, right [...] in 3 months. Also follow-up with her personal care worker Dr. Ramos with [facility] for repeat imaging [...] PO DAILY@0800 02/03/18 Fluticasone 0.05% [Flonase Nasal [place]] 2 spray NASAL DAILY 02/03/18 Furosemide [Lasix] [...] applicable Code Visit Inpatient E AND M: 93961 Disch Hosp 02/11/18 1454 <Electronically signed by Shruthi Christie MD> Date Shruthi Christie MD Cosigner Signature (if applicable): Date CC: Bhupendra Oliveira MD; Shruthi Christie M.D. Signed DISCHARGE INSTRUCTION Observed: 02/11/2018 Status: F Source: KINJAL 2:34 PM [facility] REPOSITORY [facility] Medical Records Department [address] [place] [address] Instructions for Home/Discharge Instructions 02/11/18 1432 MR#: [id number] Acct: [id number] Name: TAMIA PANDA Rep #: [id number] : 1955 63 From: Shruthi Christie MD [...] PO DAILY@0800 02/03/18 Fluticasone 0.05% [Flonase Nasal [place]] 2 spray NASAL DAILY 02/03/18 Furosemide [Lasix] [...] F Source: KINJAL PROFILE (BMP) 1:30 PM [facility] REPOSITORY Order Comment: NURSE DRAW SENT LABEL AND TUBE TO FLOOR AND SPOKE TO [facility] TO LET THEM KNOW IT WAS ON [...] GAP 5 Performed By: #### L500.2500 #### [facility] [address] [place], [place], [address] BEDSIDE GLUCOSE Collected: 02/11/2018 Status: F Source: STURGEON 11:28 AM [facility] REPOSITORY TYPE CODE TESTS RESULT OUT OF REFERENCE UNITS RANGE LAB L501.080 70-110 mg/dL High BEDSIDE GLU 281 Result Comment: MANAGEMENT OF PATIENT CARE PER NURSING PROTOCOL Performed By: #### L501.080 #### [facility] Point of Care [address] [place] [address] BEDSIDE GLUCOSE Collected: 02/11/2018 Status: F Source: STURGEON 7:05 AM [facility] REPOSITORY TYPE CODE TESTS RESULT OUT OF REFERENCE UNITS RANGE LAB L501.080 70-110 mg/dL High BEDSIDE GLU 164 Result Comment: MANAGEMENT OF PATIENT CARE PER NURSING PROTOCOL Performed By: #### L501.080 #### [facility] Point of Care [address] [place] [address] CNPN Observed: 02/11/2018 Status: COMPLETED Source: GERMAN 12:00 AM [facility] REPOSITORY Telephone (GAMALIEL) TAMIA PANDA ([id number]) 1955 F Date Time Provider Department 02/11/18 SHAN MIDDLETON During your visit today, we recorded the following information about you: Akiko Jose GONZALEZ 02/11/2018 10:34 AM Signed patient is scheduled for titration @ [facility] on 02/23/2018 and needing an updated order. Please file, will then fax to [facility] Sleep lab. Thanks Akiko Garcia LPN 02/12/2018 [...] Date Reviewed: 02/03/2018 Reviewed by: Yessi Sanchez [facility] - Fully Assessed Reason for Visit: Orders [681] Cmt: titration PSG Primary Visit Diagnosis:PARESH treated with BiPAP [G47.33] Order(s):PAP TITRATION PSG (CPAP, BIPAP, ASV) [[id number]] Order #: [id number] FUTURE Prescriptions as of 02/11/2018 Sig: SUCRALFATE 100 MG/ML ORAL GISELLE* Take 10 mL by mouth every 6 h* PANTOPRAZOLE ORAL LIQUID 40 M* Take 20 mL by mouth twice cady* ESTRADIOL 0.01% (0.1 MG/GRAM)* Apply pea-sized amount to per* COMPOUNDED PRESCRIPTION Please fit for BiPAP mask. INSULIN GLARGINE (U-100) 100 * Inject 56 Units subcutaneousl* VetCloudTOUCH ULTRA BLUE TEST STRIP USE DIRECTED TO [...] [I25.10] INVALID FOR* Diabetes mellitus, type II ([facility]) [E11.9] INVALID FOR* Morbid obesity ([facility]) [E66.01] Hypothyroidism [E03.9] Anxiety [F41.9] Sleep apnea [G47.30] 02/14/2017 Essential hypertension [I10] 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 CHF (congestive heart failure) ([facility]) [I50.9] BPPV (benign paroxysmal positional vertigo) [...] 02/10/2018 Status: F Source: KINJAL 9:17 PM [facility] REPOSITORY TYPE CODE TESTS RESULT OUT OF REFERENCE UNITS RANGE LAB L501.080 70-110 mg/dL High BEDSIDE GLU 273 Result Comment: MANAGEMENT OF PATIENT CARE PER NURSING PROTOCOL Performed By: #### L501.080 #### [facility] Point of Care [address] [place] [address] BEDSIDE GLUCOSE Collected: 02/10/2018 Status: F Source: KINJAL 4:09 PM [facility] REPOSITORY TYPE CODE TESTS RESULT OUT OF REFERENCE UNITS RANGE LAB L501.080 70-110 mg/dL High BEDSIDE GLU 224 Result Comment: MANAGEMENT OF PATIENT CARE PER NURSING PROTOCOL Performed By: #### L501.080 #### [facility] Point of Care [address] [place] [address] BEDSIDE GLUCOSE Collected: 02/10/2018 Status: F Source: KINJAL 11:27 AM [facility] REPOSITORY TYPE CODE TESTS RESULT OUT OF REFERENCE UNITS RANGE LAB L501.080 70-110 mg/dL High BEDSIDE GLU 345 Result Comment: MANAGEMENT OF PATIENT CARE PER NURSING PROTOCOL Performed By: #### L501.080 #### [facility] Point of Care [address] [place] [address] BEDSIDE GLUCOSE Collected: 02/10/2018 Status: F Source: KINJAL 6:36 AM [facility] REPOSITORY TYPE CODE TESTS RESULT OUT OF REFERENCE UNITS RANGE LAB L501.080 70-110 mg/dL High BEDSIDE GLU 229 Result Comment: MANAGEMENT OF PATIENT CARE PER NURSING PROTOCOL Performed By: #### L501.080 #### [facility] Point of Care [address] [place] [address] VANCOMYCIN, TROUGH Collected: 02/10/2018 Status: F Source: KINJAL LEVEL 5:00 AM [facility] REPOSITORY Order Comment: Comments: PLEASE DRAW 30MIN [...] (Ventilator/Healtcare Associated) -Sepsis PLEASE CONTACT PHARMACY SERVICES (#[id number]) FOR INTERPRETATION OF RESULTS. Performed By: #### L501.8820 #### [facility] [address] [place], [address] BEDSIDE GLUCOSE Collected: 02/09/2018 Status: F Source: STURGEON 10:34 PM [facility] REPOSITORY TYPE CODE TESTS RESULT OUT OF REFERENCE UNITS RANGE LAB L501.080 70-110 mg/dL High BEDSIDE GLU 256 Result Comment: Insulin Given MANAGEMENT OF PATIENT CARE PER NURSING PROTOCOL Performed By: #### L501.080 #### [facility] Point of Care [address] [place] [address] BEDSIDE GLUCOSE Collected: 02/09/2018 Status: F Source: STURGEON 5:09 PM [facility] REPOSITORY TYPE CODE TESTS RESULT OUT OF REFERENCE UNITS RANGE LAB L501.080 70-110 mg/dL High BEDSIDE GLU 271 Result Comment: MANAGEMENT OF PATIENT CARE PER NURSING PROTOCOL Performed By: #### L501.080 #### [facility] Point of Care [address] [place] [address] 12 LEAD ELECTROCARDIOGRAM Observed: 02/09/2018 Status: F Source: STURGEON 2:32 PM [facility] REPOSITORY [facility] Cardiovascular Services [address] [place] [address] 12 Lead EKG 02/07/18 1950 MR#: [id number] Acct: [id number] Name: TAMIA PANDA Rep #: [id number] : 1955 63 From: Bart Blas MD Attending Dr: Yvon Hogan MD Status: ADM IN Ordering Dr: John Hodge MD Date: 02/07/18 Location: U Sex: F C Admitted: 02/07/18 Test Reason [...] ECG Confirmed by BART BLAS MD ([id number]), state editor SHYANNE TERRAZAS ([id number]) on 02/09/2018 2:31:39 PM Referred By: GAURANG 02/09/18 1431 Date Bart Blas MD CC: Bhupendra Oliveira MD; Yvon Hogan MD; John Hodge MD Signed CONSULTATION Observed: 02/09/2018 Status: F Source: STURGEON 1:42 PM [facility] REPOSITORY [facility] Medical Records Department [address] [place] [address] Consultation 02/09/18 1334 MR#: [id number] Acct: [id number] Name: TAMIA PANDA Rep #: [id number] : 1955 63 From: Syed Montanez MD PCP: Bhupendra Oliveira MD Status: ADM IN Y Location: [place] [address] Problem List (1) COPD with moderate acute [...] Clarity Clear Urine pH 6.5 Ur Specific [place] 1.015 Urine Protein 15 H - Other [...] MD Cosigner Signature (if applicable): Date CC: Bhupendar Oliveira MD; Syed Montanez MD Signed BEDSIDE GLUCOSE Collected: 02/09/2018 Status: F Source: KINJAL 11:08 AM [facility] REPOSITORY TYPE CODE TESTS RESULT OUT OF REFERENCE UNITS RANGE LAB L501.080 70-110 mg/dL High BEDSIDE GLU 292 Result Comment: MANAGEMENT OF PATIENT CARE PER NURSING PROTOCOL Performed By: #### L501.080 #### [facility] Point of Care [address] [place] [address] BEDSIDE GLUCOSE Collected: 02/09/2018 Status: F Source: KINJAL 6:57 AM [facility] REPOSITORY TYPE CODE TESTS RESULT OUT OF REFERENCE UNITS RANGE LAB L501.080 70-110 mg/dL High BEDSIDE GLU 236 Result Comment: MANAGEMENT OF PATIENT CARE PER NURSING PROTOCOL Performed By: #### L501.080 #### [facility] Point of Care [address] [place] [address] BEDSIDE GLUCOSE Collected: 02/08/2018 Status: F Source: KINJAL 9:38 PM [facility] REPOSITORY TYPE CODE TESTS RESULT OUT OF REFERENCE UNITS RANGE LAB L501.080 70-110 mg/dL High BEDSIDE GLU 362 Result Comment: MANAGEMENT OF PATIENT CARE PER NURSING PROTOCOL Performed By: #### L501.080 #### [facility] Point of Care [address] [place] [address] URINALYSIS, COMPLETE Collected: 02/08/2018 Status: F Source: KINJAL 9:00 PM [facility] REPOSITORY Order Comment: Order Date: 02/08/18 How [...] 0-5 SEEN Performed By: #### L400.0001 #### [facility] [address] [place], [place], [address] Observed: 02/08/2018 Status: F Source: KINJAL CULTURE, URINE 9:00 PM [facility] REPOSITORY Urine Culture Culture exhibits no growth. Performed By: #### M100.0650 #### [facility] [address] [place], [address] BEDSIDE GLUCOSE Collected: 02/08/2018 Status: F Source: STURGEON 4:43 PM [facility] REPOSITORY TYPE CODE TESTS RESULT OUT OF REFERENCE UNITS RANGE LAB L501.080 70-110 mg/dL High BEDSIDE GLU 191 Result Comment: MANAGEMENT OF PATIENT CARE PER NURSING PROTOCOL Performed By: #### L501.080 #### [facility] Point of Care [address] [place] [address] CHEST 1 VIEW Observed: 02/08/2018 Status: F Source: STURGEON (PORTABLE) 4:39 PM [facility] REPOSITORY [facility] Imaging Services [address] [place] [address] Chest 1 View (Portable) MR#: [id number] Acct: [id number] Name: TAMIA PANDA Rep #: [id number] : 1955 F 63 From: John Chavez MD PCP: Bhupendra Oliveira MD Status: ADM IN Study: Chest 1 View (Portable) Date of Exam: 02/08/18 Exam# [id number] Ordering Dr: Joseph Wright MD STUDY: X-RAY [...] CC: Bhupendra Oliveira MD; Joseph Wright MD Adult Health Clinical Nurse Specialist: Signed BEDSIDE GLUCOSE Collected: 02/08/2018 Status: F Source: KINJAL 11:43 AM [facility] REPOSITORY TYPE CODE TESTS RESULT OUT OF REFERENCE UNITS RANGE LAB L501.080 70-110 mg/dL High BEDSIDE GLU 320 Result Comment: MANAGEMENT OF PATIENT CARE PER NURSING PROTOCOL Performed By: #### L501.080 #### [facility] Point of Care [address] [place] [address] CBC-COMPLETE BLOOD CNT Collected: 02/08/2018 Status: F Source: KINJAL NO DIFF 8:25 AM [facility] REPOSITORY TYPE CODE TESTS RESULT OUT OF [...] MPV 10.3 Performed By: #### L100.0500 #### [facility] [address] [place], [place], [id number] PROTHROMBIN TIME W/INR Collected: 02/08/2018 Status: F Source: KINJAL 8:25 AM [facility] REPOSITORY Order Comment: Comments: CAN GET FROM MORNING LABS IF ALREADY DONE TYPE CODE TESTS RESULT OUT OF RANGE REFERENCE UNITS LAB L300.4150 11.7-14.9 SECONDS Normal PROTIME 14.5 LAB L300.4200 Normal INR 1.1 Performed By: #### L300.3900 #### [facility] [address] [place], [address] TROPONIN-I Collected: 02/08/2018 Status: F Source: KINJAL 8:25 AM [facility] REPOSITORY Order Comment: 'TROP' Serial specimen #1, #2 or #3: 3 TYPE CODE TESTS RESULT OUT OF RANGE REFERENCE UNITS LAB L501.4010 <0.045 ng/mL Normal < 0.015 TROPONIN-I Result Comment: TROPONIN-I EXPECTED VALUES <0.045 Negative 0.045 - 0.590 Consistent with Cardiac Damage > OR = 0.600 Critical Value Not every elevated troponin is indicative of AK. These values should be used with clinical judgement in examining the patient's clinical picture for diagnosis. To establish a diagnosis of AK versus myocardial injury, there must be a demonstrated rise and/or fall in the troponin values, in addition to ischemic symptoms, EKG changes, new regional wall motion abnormality, and/or angiographical evidence. PLEASE NOTE: REFERENCE RANGES EDITED 18 Performed By: #### L501.4010 #### [facility] [address] [facility] [place], [address] BASIC METABOLIC Collected: 02/08/2018 Status: F Source: KINJAL PROFILE (BMP) 8:25 AM [facility] REPOSITORY Order Comment: Comments: Fasting Lipid Profile [...] Performed By: #### L500.2500, L500.4100, L501.9520 #### [facility] [address] [facility] [place], [place], [id number] LIPID PROFILE Collected: 02/08/2018 Status: F Source: KINJAL 8:25 AM [facility] REPOSITORY Order Comment: Comments: Fasting Lipid Profile [...] Performed By: #### L500.2500, L500.4100, L501.9520 #### [facility] [address] [place], [place], [id number] THYROID STIM HORMONE Collected: 02/08/2018 Status: F Source: STURGEON (TSH) 8:25 AM [facility] REPOSITORY Order Comment: Comments: Fasting Lipid Profile TYPE CODE TESTS RESULT OUT OF RANGE REFERENCE UNITS LAB L501.9520 0.358-3.74 uIU/mL Low TSH 0.20 Performed By: #### L500.2500, L500.4100, L501.9520 #### [facility] [address] [place], [address] BEDSIDE GLUCOSE Collected: 02/08/2018 Status: F Source: STURGEON 6:46 AM [facility] REPOSITORY TYPE CODE TESTS RESULT OUT OF REFERENCE UNITS RANGE LAB L501.080 70-110 mg/dL High BEDSIDE GLU 346 Result Comment: MANAGEMENT OF PATIENT CARE PER NURSING PROTOCOL Performed By: #### L501.080 #### [facility] Point of Care [address] [facility] [place] [address] HISTORY AND PHYSICAL Observed: 02/08/2018 Status: F Source: STURGEON EXAM 5:46 AM [facility] REPOSITORY [facility] Medical Records Department [address] [place] [address] History and Physical 02/07/18 2330 MR#: [id number] Acct: [id number] Name: TAMIA PANDA Rep #: [id number] : 1955 63 From: Donn Baker MD PCP: Bhupendra Oliveira MD Status: ADM IN Location: [place] [address] Problem List (1) Atrial fibrillation with RVR [...] ligation. 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 [place], [place] [address] TROPONIN-I Collected: 02/08/2018 Status: F Source: KINJAL 1:50 AM [facility] REPOSITORY Order Comment: 'TROP' Serial specimen #1, #2 or #3: 2 TYPE CODE TESTS RESULT OUT OF RANGE REFERENCE UNITS LAB L501.4010 <0.045 ng/mL Normal < 0.015 TROPONIN-I Result Comment: TROPONIN-I EXPECTED VALUES <0.045 Negative 0.045 - 0.590 Consistent with Cardiac Damage > OR = 0.600 Critical Value Not every elevated troponin is indicative of AK. These values should be used with clinical judgement in examining the patient's clinical picture for diagnosis. To establish a diagnosis of AK versus myocardial injury, there must be a demonstrated rise and/or fall in the troponin values, in addition to ischemic symptoms, EKG changes, new regional wall motion abnormality, and/or angiographical evidence. PLEASE NOTE: REFERENCE RANGES EDITED 18 Performed By: #### L501.4010 #### [facility] [address] [place], [place], [address] CR-CHEST 1 VIEW Observed: 02/08/2018 Status: F Source: ROJAS (PORTABLE) IMPORT 12:00 AM [facility] REPOSITORY Images were obtained outside of [facility] [id number] CT-CTA CHEST W/WO Observed: 02/08/2018 Status: F Source: ROJAS CONTRAST IMPORT 12:00 AM [facility] REPOSITORY Images were obtained outside of [facility] [id number] EMERGENCY DEPARTMENT Observed: 02/07/2018 Status: F Source: KINJAL SUMMARY 11:37 PM [facility] REPOSITORY [facility] Medical Records Department [address] [place] [address] Emergency Department Summary 02/07/182052 MR#: [id number] Acct: [id number] Name: TAMIA PANDA Rep #: [id number] : 1955 63 From: John Hodge MD [...] insulin-dependent diabetes This note was generated with [employer] dictation software. It may contain incorrect words, spelling, and punctuation that were not noted in review of the chart prior to signing ED Disposition - Plan for ED Patient: Disposition: Acute Care Hospital [facility] Chief Complaint: Shortness of Breath Referrals: Bhupendra Oliveira MD [Primary Care Provider] - What to do if you have Problems For any increased pain, shortness of breath, bleeding, nausea or vomiting, chest pain, or any unexpected problems, contact your Primary Care Provider. Call [facility] ([phone]) or report to the closest Emergency Room. Call 911 if necessary. 02/07/18 3569 <Electronically signed by John Hodge MD> Date John Hodge MD Cosigner Signature (If Indicated): Date CC: Bhupendra Oliveira MD CTA CHEST W/WO Observed: 02/07/2018 Status: F Source: KINJAL CONTRAST 11:30 PM [facility] REPOSITORY [facility] Imaging Services [address] [place] [address] CTA Chest W/WO Contrast MR#: [id number] Acct: [id number] Name: TAMIA PANDA Rep #: [id number] : 1955 F 63 From: Lizette Sutherland MD PCP: Bhupendra Oliveira MD Status: ADM IN Study: CTA Chest W/WO Contrast Date of Exam: 02/08/18 Exam# [id number] Ordering Dr: Donn Baker MD STUDY: CTA [...] Sutherland MD at 23:31 EDT Tel Direct: [phone], Service support , CC: Bhupendra Oliveira MD; Donn Baker MD Adult Health Clinical Nurse Specialist: Signed Observed: 02/07/2018 Status: F Source: STURGEON INFLUENZA A+B (RAPID 10:58 PM [facility] ISSA) REPOSITORY FLU A/B Rapid Negative test results should be confirmed by culture. Order Rapid Viral Culture for Influenzae A+B ([id number]) if clinically indicated. Influenza Ag, Direct Presumptive NEGATIVE for Influenza A/B Antigen (See Note) Performed By: #### L300.8000, M101.0101 #### [facility] [address] [place], [place], [address] BEDSIDE GLUCOSE Collected: 02/07/2018 Status: F Source: STURGEON 10:53 PM [facility] REPOSITORY TYPE CODE TESTS RESULT OUT OF REFERENCE UNITS RANGE LAB L501.080 70-110 mg/dL High BEDSIDE GLU 254 Result Comment: MANAGEMENT OF PATIENT CARE PER NURSING PROTOCOL Performed By: #### L501.080 #### [facility] Point of Care [address] [place] [address] BLOOD GASES BY [facility] Collected: 02/07/2018 Status: F Source: STURGEON 10:52 PM [facility] REPOSITORY TYPE CODE TESTS RESULT OUT OF [...] To HOSP LAB L9001.1105 Normal Time Given 224 LAB L9001.1110 7.35-7.45 High pH - I-STAT [...] ISTAT 98 Performed By: #### L9000.0800 #### [facility] Point of Care [address] [place] [id number] BLOOD GASES BY [facility] Collected: 02/07/2018 Status: F Source: STURGEON 8:41 PM [facility] REPOSITORY TYPE CODE TESTS RESULT OUT OF [...] ISTAT 97 Performed By: #### L9000.0800 #### [facility] Point of Care [address] [place] [address] D-DIMER QUANTITATIVE Collected: 02/07/2018 Status: F Source: KINJAL (DVT/PE) 8:18 PM [facility] REPOSITORY TYPE CODE TESTS RESULT OUT OF [...] SAME. Performed By: #### L300.8000, M101.0101 #### [facility] [address] [place], [address] CBC W/DIFF, AUTOMATED Collected: 02/07/2018 Status: F Source: KINJAL 8:10 PM [facility] REPOSITORY TYPE CODE TESTS RESULT OUT OF [...] Lymph 0.81 Performed By: #### L100.0100 #### [facility] [address] [place], [place], [address] BASIC METABOLIC Collected: 02/07/2018 Status: F Source: STURGEON PROFILE (BMP) 8:10 PM [facility] REPOSITORY TYPE CODE TESTS RESULT OUT OF [...] 7 Performed By: #### L500.2500, L501.4010 #### [facility] [address] [place], [address] TROPONIN-I Collected: 02/07/2018 Status: F Source: KINJAL 8:10 PM [facility] REPOSITORY TYPE CODE TESTS RESULT OUT OF RANGE REFERENCE UNITS LAB L501.4010 <0.045 ng/mL Normal 0.020 TROPONIN-I Result Comment: TROPONIN-I EXPECTED VALUES <0.045 Negative 0.045 - 0.590 Consistent with Cardiac Damage > OR = 0.600 Critical Value Not every elevated troponin is indicative of AK. These values should be used with clinical judgement in examining the patient's clinical picture for diagnosis. To establish a diagnosis of AK versus myocardial injury, there must be a demonstrated rise and/or fall in the troponin values, in addition to ischemic symptoms, EKG changes, new regional wall motion abnormality, and/or angiographical evidence. PLEASE NOTE: REFERENCE RANGES EDITED 18 Performed By: #### L500.2500, L501.4010 #### [facility] [address] [facility] [place], [address] BNP,B-TYPE NATRIURETIC Collected: 02/07/2018 Status: F Source: KINJAL PEPTIDE 8:10 PM [facility] REPOSITORY TYPE CODE TESTS RESULT OUT OF RANGE REFERENCE UNITS LAB L503.6620 0-100 pg/mL High B-TYPE 229.5 STONEY PEP Performed By: #### L503.6620 #### [facility] [address] [facility] [place], [address] CHEST 1 VIEW Observed: 02/07/2018 Status: F Source: KINJAL (PORTABLE) 8:04 PM [facility] REPOSITORY [facility] Imaging Services [address] [place] [address] Chest 1 View (Portable) MR#: [id number] Acct: [id number] Name: TAMIA PANDA Rep #: [id number] : 1955 F 63 From: Lizette Sutherland MD PCP: Bhupendra Oliveira MD Status: REG ER Study: Chest 1 View (Portable) Date of Exam: 02/07/18 Exam# [id number] Ordering Dr: John Hodge MD STUDY: X-RAY [...] Sutherland MD at 20:54 EDT Tel Direct: [phone], Service support , CC: Bhupendra Oliveira MD; John Hodge MD Adult Health Clinical Nurse Specialist: Signed CR-CHEST 1 VIEW Observed: 02/07/2018 Status: F Source: RELIANCE (PORTABLE) IMPORT 12:00 AM [facility] REPOSITORY Images were obtained outside of [facility] [id number] 12 LEAD ELECTROCARDIOGRAM Observed: 02/06/2018 Status: F Source: KINJAL 2:04 PM [facility] REPOSITORY [facility] Cardiovascular Services [address] [place] [address] 12 Lead EKG 02/03/18 1603 MR#: [id number] Acct: [id number] Name: HENRYTAMIA J Rep #: [id number] : 1955 63 From: Bart Blas MD Attending Dr: Shirley Fabian MD Status: ADM IN Ordering Dr: Robert Baird MD Date: 02/03/18 Location: [facility] Sex: F C Admitted: 02/03/18 Test Reason [...] ECG Confirmed by BART BLAS MD ([id number]), state editor SHYANNE TERRAZAS (56) on 02/06/2018 2:04:06 PM Referred By: VIVIEN Confirmed By:BART BLAS MD 02/06/18 8249 Date Bart Blas MD CC: Shirley Fabian MD; Bhupendra Oliveira MD; Robert Baird MD Signed BEDSIDE GLUCOSE Collected: 02/06/2018 Status: F Source: KINJAL 12:15 PM [facility] REPOSITORY TYPE CODE TESTS RESULT OUT OF REFERENCE UNITS RANGE LAB L501.080 70-110 mg/dL High BEDSIDE GLU 234 Result Comment: MANAGEMENT OF PATIENT CARE PER NURSING PROTOCOL Performed By: #### L501.080 #### [facility] Point of Care [address] [place], [place] [address] BEDSIDE GLUCOSE Collected: 02/06/2018 Status: F Source: KINJAL 6:41 AM [facility] REPOSITORY TYPE CODE TESTS RESULT OUT OF REFERENCE UNITS RANGE LAB L501.080 70-110 mg/dL High BEDSIDE GLU 215 Result Comment: MANAGEMENT OF PATIENT CARE PER NURSING PROTOCOL Performed By: #### L501.080 #### [facility] Point of Care [address] [place] [address] BEDSIDE GLUCOSE Collected: 02/05/2018 Status: F Source: KINJAL 10:52 PM [facility] REPOSITORY TYPE CODE TESTS RESULT OUT OF REFERENCE UNITS RANGE LAB L501.080 70-110 mg/dL High BEDSIDE GLU 193 Result Comment: MANAGEMENT OF PATIENT CARE PER NURSING PROTOCOL Performed By: #### L501.080 #### [facility] Point of Care [address] [place] [address] BEDSIDE GLUCOSE Collected: 02/05/2018 Status: F Source: KINJAL 5:06 PM [facility] REPOSITORY TYPE CODE TESTS RESULT OUT OF REFERENCE UNITS RANGE LAB L501.080 70-110 mg/dL High BEDSIDE GLU 171 Result Comment: MANAGEMENT OF PATIENT CARE PER NURSING PROTOCOL Performed By: #### L501.080 #### [facility] Point of Care [address] [place], [place] [address] PROGRESS Observed: 02/05/2018 Status: COMPLETED Source: RELIANCE 4:26 PM [facility] REPOSITORY HNO ID: [id number] Author: Nanda Rodriguez) Brian Service: (none) Author Type: Physician Type: Progress Notes Filed: 02/05/2018 4:26 PM Note Text: Reviewed and agree. TCM? PROGRESS Observed: 02/05/2018 Status: COMPLETED Source: RELIANCE 3:48 PM [facility] REPOSITORY HNO ID: [id number] Author: Saad Allen) Larry Service: (none) Author Type: Registered Nurse Type: Progress Notes Filed: 02/05/2018 3:49 PM Note Text: TC from Shayla at [facility], states pt is being discharged today with orders for shelter, PT and OT. Informed PCP will sign home health orders. Saad Silvestre RN February 05, 2018 3:48 PM BEDSIDE GLUCOSE Collected: 02/05/2018 Status: F Source: KINJAL 11:40 AM [facility] REPOSITORY TYPE CODE TESTS RESULT OUT OF REFERENCE UNITS RANGE LAB L501.080 70-110 mg/dL High BEDSIDE GLU 294 Result Comment: MANAGEMENT OF PATIENT CARE PER NURSING PROTOCOL Performed By: #### L501.080 #### [facility] Point of Care [address] [place], [place] [address] DISCHARGE INSTRUCTION Observed: 02/05/2018 Status: F Source: KINJAL 11:21 AM [facility] REPOSITORY [facility] Medical Records Department [address] [place] [address] Instructions for Home/Discharge Instructions 02/05/18 1108 MR#: [id number] Acct: [id number] Name: TAMIA PANDA Rep #: [id number] : 1955 63 From: Shirley Fabian MD [...] PO DAILY@0800 02/03/18 Fluticasone 0.05% [Flonase Nasal [place]] 2 spray NASAL DAILY 02/03/18 Furosemide [Lasix] [...] MD PROGRESS Observed: 02/05/2018 Status: COMPLETED Source: RELIANCE 10:31 AM [facility] REPOSITORY HNO ID: [id number] Author: Nanda Rodriguez) Brian Service: (none) Author Type: Physician Type: Progress Notes Filed: 02/05/2018 10:32 AM Note Text: Reviewed and agree with earlier testing to prevent recurrent admission for hypoxia/hypercapnia 2/2 uncontrolled PARESH. PROGRESS Observed: 02/05/2018 Status: COMPLETED Source: RELIANCE 10:21 AM [facility] REPOSITORY HNO ID: [id number] Author: Saad HarrisonRn) Larry Service: (none) Author Type: Registered Nurse Type: Progress Notes Filed: 02/05/2018 10:25 AM Note Text: PRIMARY CARE COORDINATION FOLLOW-UP NOTE Provider Action/FYI Discussed scheduling sleep study sooner with [facility] AROLDO ROCHA, she will discuss with hospitalist Patient identified by name and date of . YES Spoke to AROLDO Whitehead CM at [facility] Summary: Discussed pt is in hospital with [...] home. States she will discuss with hospitalist. Service Engine Repairer plan for next outreach: Will follow up at discharge Signature Saad Silvestre RN February 05, 2018 Observed: 02/05/2018 Status: F Source: STURGEON CULTURE, SPUTUM 7:05 AM [facility] REPOSITORY Has pt arrived? Y Gram Stain Acceptable Specimen? Yes (<25 Epithelial cells per/lpf) Gram Stain Rare Epithelial cells Rare White Blood Cells Rare Gram positive cocci in clusters Resp. Culture Copy of report sent to Infection Control Printer [id number] 02/07/18 0816 BLUCAS. ORGANISM 1: Meth. resistant Staph. aureus Amount [...] <=0.5 S (NF) indicates non-formulary drug at [facility]. Approval by Infectious Disease Specialist required before non-formulary drugs may be ordered and/or dispensed. * CLSI guidelines does not recommend testing of cephalosporins. This interpretation is deduced from Beta-lactam/penicillin results. Performed By: #### M100.0800 #### [facility] [address] [place], [address] BEDSIDE GLUCOSE Collected: 02/05/2018 Status: F Source: STURGEON 6:56 AM [facility] REPOSITORY TYPE CODE TESTS RESULT OUT OF REFERENCE UNITS RANGE LAB L501.080 70-110 mg/dL High BEDSIDE GLU 231 Result Comment: MANAGEMENT OF PATIENT CARE PER NURSING PROTOCOL Performed By: #### L501.080 #### [facility] Point of Care [address] [place] [address] CNPTOUTREACH Observed: 02/05/2018 Status: COMPLETED Source: RELIANCE 12:00 AM [facility] REPOSITORY Patient Outreach (FAMPWS) TAMIA APNDA ([id number]) 1955 F Date Time Provider Department 02/05/18 SAAD SILVESTRE) FAMPWS During your visit today, we recorded the following information about you: Saad Silvestre RN 02/05/2018 10:25 AM Signed PRIMARY CARE COORDINATION FOLLOW-UP NOTE Provider Action/WILLEM Discussed scheduling sleep study sooner with [facility] [facility] AROLDO RO[facility], she will discuss with hospitalist Patient identified by name and date of . YES Spoke to AROLDO Whitehead CM at [facility] Summary: Discussed pt is in hospital with [...] home. States she will discuss with hospitalist. Service Engine Repairer plan for next outreach: Will follow up at discharge Signature Saad Silvestre RN February 05, 2018 Nanda Oliveira MD 02/05/2018 10:32 AM Signed Reviewed and agree with earlier testing to prevent recurrent admission for hypoxia/hypercapnia 2/2 uncontrolled PARESH. Saad Silvestre RN 02/05/2018 3:49 PM Signed TC from Shayla at [facility], states pt is being discharged today with orders for shelter, PT and OT. 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 CHF (congestive heart failure) ([facility]) [I50.9] BPPV (benign paroxysmal positional vertigo) [...] 02/04/2018 Status: F Source: KINJAL 10:10 PM [facility] REPOSITORY TYPE CODE TESTS RESULT OUT OF REFERENCE UNITS RANGE LAB L501.080 70-110 mg/dL High BEDSIDE GLU 284 Result Comment: MANAGEMENT OF PATIENT CARE PER NURSING PROTOCOL Performed By: #### L501.080 #### [facility] Point of [place], [place] [id number] BEDSIDE GLUCOSE Collected: 02/04/2018 Status: F Source: KINJAL 4:04 PM [facility] REPOSITORY TYPE CODE TESTS RESULT OUT OF REFERENCE UNITS RANGE LAB L501.080 70-110 mg/dL High BEDSIDE GLU 275 Result Comment: MANAGEMENT OF PATIENT CARE PER NURSING PROTOCOL Performed By: #### L501.080 #### [facility] Point of Care [address] [place] [address] PROGRESS Observed: 02/04/2018 Status: COMPLETED Source: RELIANCE 2:38 PM [facility] REPOSITORY HNO ID: [id number] Author: Jessica Reynoso) Yamil Service: (none) Author Type: Fireboat Operator Type: Progress Notes Filed: 02/04/2018 2:39 PM Note Text: Aroldo called MTM to cancel transportation to [facility] appt 02/05/18. MTM cancelled patient transportation. CONSULTATION Observed: 02/04/2018 Status: F Source: STURGEON 1:44 PM [facility] REPOSITORY [facility] Medical Records Department [address] [place] [address] Consultation 02/04/18 1056 MR#: [id number] Acct: [id number] Name: TAMIA PANDA Rep #: [id number] : 1955 63 From: Tete Toledo OPERATIONS AND MAINTENANCE TECHNICAN-C PCP: Bhupendra Oliveira MD Status: ADM IN Y Location: [place] [address] ADDENDUM by Adriano Livingston MD on 02/04/18 at 1343 Code Visit Patient seen and examined independently in conjunction with nurse practitioner. All data, including note below, was personally reviewed and I agree with the added comments. In brief, patient [facility] to [facility]2018 with complaints of severe shortness of breath and confusion. Patient has been seen by me on previous hospitalizations, but primary personal care worker is at the [facility]. Patient reports a history of COPD and [...] next 12-14 days. Inpatient E AND M: 17240 Init Hosp L3 02/04/18 1344 <Electronically signed [...] increased oxygen requirements. She saw her primary personal care worker OPERATIONS AND MAINTENANCE TECHNICAN at [facility] a couple of weeks ago and repeat pulmonary function tests were ordered. These have not been completed. Patient states she was told she has COPD, emphysema, and asthma. Patient recently had an EGD with pyloromyotomy secondary to gastroparesis at [facility]. Patient was lethargic upon initial presentation to [...] 3 L. She also was admitted to [facility] at the beginning of November and had a stress test and subsequent heart catheterization that showed some disease. Recommendations were made for risk factor modification, indefinite aspirin, Eliquis, and follow-up with her primary online producer, Dr. Strickland. Patient's baseline inhaler regimen includes [...] ligation. 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 Patient can follow-up with her primary personal care worker upon discharge IMPRESSIONS 1. Acute on chronic [...] discharge. She can follow-up with her primary personal care worker as previously scheduled. She should hold off on performing pulmonary function tests until her acute viral illness has resolved. 2. Encephalopathy Could be medication related, the patient had a recent procedure at [facility] and was given narcotics. Patient does does [...] ago and is following with her primary personal care worker for this. Her pulmonary testing is not [...] or concerns. This note was generated with [employer] software. It may contain incorrect words, spelling, and punctuation that were not noted in checking the note before signing. 02/04/18 1147 <Electronically signed by Tete MONIQUEC> Date Tete Toledo OPERATIONS AND MAINTENANCE TECHNICAN-C Cosigner Signature (if applicable): Date CC: Adriano Livingston MD; Bhupendra Oliveira MD Signed BEDSIDE GLUCOSE Collected: 02/04/2018 Status: F Source: KINJAL 11:13 AM [facility] REPOSITORY TYPE CODE TESTS RESULT OUT OF REFERENCE UNITS RANGE LAB L501.080 70-110 mg/dL High BEDSIDE GLU 347 Result Comment: MANAGEMENT OF PATIENT CARE PER NURSING PROTOCOL Performed By: #### L501.080 #### [facility] Point of Care [address] [place] [address] BEDSIDE GLUCOSE Collected: 02/04/2018 Status: F Source: KINJAL 6:49 AM [facility] REPOSITORY TYPE CODE TESTS RESULT OUT OF REFERENCE UNITS RANGE LAB L501.080 70-110 mg/dL High BEDSIDE GLU 243 Result Comment: MANAGEMENT OF PATIENT CARE PER NURSING PROTOCOL Performed By: #### L501.080 #### [facility] Point of Care [address] [place] [address] CBC W/DIFF, AUTOMATED Collected: 02/04/2018 Status: F Source: KINJAL 5:46 AM [facility] REPOSITORY TYPE CODE TESTS RESULT OUT OF [...] COMMENT SCANNED Performed By: #### L100.0100 #### [facility] [address] [place], [address] TROPONIN-I Collected: 02/04/2018 Status: F Source: STURGEON 5:46 AM [facility] REPOSITORY TYPE CODE TESTS RESULT OUT OF RANGE REFERENCE UNITS LAB L501.4010 <0.045 ng/mL Normal < 0.015 TROPONIN-I Result Comment: TROPONIN-I EXPECTED VALUES <0.045 Negative 0.045 - 0.590 Consistent with Cardiac Damage > OR = 0.600 Critical Value Not every elevated troponin is indicative of AK. These values should be used with clinical judgement in examining the patient's clinical picture for diagnosis. To establish a diagnosis of AK versus myocardial injury, there must be a demonstrated rise and/or fall in the troponin values, in addition to ischemic symptoms, EKG changes, new regional wall motion abnormality, and/or angiographical evidence. PLEASE NOTE: REFERENCE RANGES EDITED 18 Performed By: #### L501.4010 #### [facility] [address] [place], [address] COMPREHENSIVE METABOLIC Collected: 02/04/2018 Status: F Source: KINJAL SOARES 5:46 AM [facility] REPOSITORY TYPE CODE TESTS RESULT OUT OF [...] GAP 10 Performed By: #### L500.4050 #### [facility] [address] [place], [address] M R STAPH AUREUS Collected: 02/04/2018 Status: F Source: STURGEON DNA BY PCR 1:50 AM [facility] REPOSITORY Order Comment: RESULTS CALLED TO NINA BHATIA PCU 02/04/18 0325 Em Avina. REPORT READ BACK BY SAME. TYPE CODE TESTS RESULT OUT OF REFERENCE UNITS RANGE LAB L8200.1100 Negative High MRSA POSITIVE RESULT Performed By: #### L8200.1000 #### [facility] [place], [address] TROPONIN-I Collected: 02/04/2018 Status: F Source: STURGEON 1:35 AM [facility] REPOSITORY TYPE CODE TESTS RESULT OUT OF RANGE REFERENCE UNITS LAB L501.4010 <0.045 ng/mL Normal < 0.015 TROPONIN-I Result Comment: TROPONIN-I EXPECTED VALUES <0.045 Negative 0.045 - 0.590 Consistent with Cardiac Damage > OR = 0.600 Critical Value Not every elevated troponin is indicative of AK. These values should be used with clinical judgement in examining the patient's clinical picture for diagnosis. To establish a diagnosis of AK versus myocardial injury, there must be a demonstrated rise and/or fall in the troponin values, in addition to ischemic symptoms, EKG changes, new regional wall motion abnormality, and/or angiographical evidence. PLEASE NOTE: REFERENCE RANGES EDITED 18 Performed By: #### L501.4010 #### [facility] [address] [place], [address] EMERGENCY DEPARTMENT Observed: 02/04/2018 Status: F Source: STURGEON SUMMARY 12:15 AM [facility] REPOSITORY [facility] Medical Records Department [address] [place] [address] Emergency Department Summary 02/03/18 1902 MR#: [id number] Acct: [id number] Name: TAMIA APNDA Rep #: [id number] : 1955 63 From: Robert aBird MD PCP: Bhupendra Oliveira MD Status: ADM [...] EGD and pyloromyotomy 4 days ago at [facility]. Physical Examination: Vitals: 100.0, 123/69, 102, 26, [...] 30 minutes. This note was generated with [employer] dictation software. It may contain incorrect words, [...] problems, contact your Primary Care Provider. Call [email or web address] [facility] ([phone]) or report to the closest Emergency Room. Call 911 if necessary. 02/04/18 0015 <Electronically signed by Robert Baird MD> Date Robert Baird MD Cosigner Signature (If Indicated): Date CC: Bhupendra Oliveira MD CHEST PA AND LATERAL Observed: 02/04/2018 Status: F Source: STURGEON 12:00 AM [facility] REPOSITORY [facility] Imaging Services [address] [place] [address] Chest PA and Lateral MR#: [id number] Acct: [id number] Name: TAMIA PANDA Rep #: [id number] : 1955 F 63 From: Chantel Mahajan MD PCP: Bhupendra Oilveira MD Status: ADM IN Study: Chest PA and Lateral Date of Exam: 02/04/18 Exam# [id number] Ordering Dr: Joseph Wright MD STUDY: X-RAY [...] CC: Bhupendra Oliveira MD; Joseph Wright MD Adult Health Clinical Nurse Specialist: Signed CR-CHEST PA AND Observed: 02/04/2018 Status: F Source: [facility] IMPORT 12:00 AM [facility] REPOSITORY Images were obtained outside of [facility] [id number] BEDSIDE GLUCOSE Collected: 02/03/2018 Status: F Source: KINJAL 9:35 PM [facility] REPOSITORY TYPE CODE TESTS RESULT OUT OF REFERENCE UNITS RANGE LAB L501.080 70-110 mg/dL High BEDSIDE GLU 179 Result Comment: MANAGEMENT OF PATIENT CARE PER NURSING PROTOCOL Performed By: #### L501.080 #### [facility] Point of Care [address] [place] [address] Observed: 02/03/2018 Status: F Source: STURGEON RESPIRATORY PANEL 8:04 PM [facility] MOLECULAR REPOSITORY RESULTS CALLED TO NINA BHATIA [facility] 02/04/18 0525 Em Avina. REPORT READ BACK BY SAME. Copy of report sent to Infection Control Printer [id number] 02/04/18 0525 FLORA. RP PANEL ADENOVIRUS Not Detected HUMAN METAPHNEUMO [...] HUMAN META Performed By: #### M100.638 #### [facility] [address] [facility] [place], [address] HISTORY AND PHYSICAL Observed: 02/03/2018 Status: F Source: STURGEON EXAM 7:38 PM [facility] REPOSITORY [facility] Medical Records Department [address] [place] [address] History and Physical 02/03/18 1912 MR#: [id number] Acct: [id number] Name: TAMIA PANDA Rep #: [id number] : 1955 63 From: Joseph Wright MD PCP: Bhupendra Oliveira MD Status: ADM IN Y Location: [place] [address] Problem List (1) Acute on chronic respiratory [...] EGD and pyloromyotomy 4 days ago and for severe gastroparesis. [] Past Medical History [...] ligation. 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 In ED, patient was [...] pneumonia as the patient had procedure in [facility] on last Friday as mentioned above. Pneumonia [...] distal LAD 60% mid circumflex occluded with epdle-un-idle collateral. Mid RCA less than 30%, right [...] Gurwinder Canela DO at 16:50 EDT Tel [phone], Service support , Laboratory Results 02/03/18 16:00: WBC 9.1, RBC 3.80 L, Hgb 11.7 L, Hct 36.7 L, MCV 96.6, MCH 30.8, MCHC 31.9 L, RDW 15.3 H, RDW Differential 51.2 H, Plt Count 182, MPV 10.9, Immature Gran % (Auto) 0.100, Neut % (Auto) 79.4 H, Lymph % (Auto) 6.6 L, Pepin % (Auto) 11.8 H, Eos % (Auto) [...] < 0.015 02/03/18 16:00: Lactic Acid 1.6 05/15/18 16:09: Specimen Type ART, Sample Site L Brachial, pH 7.43, Bicarbonate Actual 37.5 H, POC Total CO2 39, Base Excess 13 H, O2 Saturation 95, ABG pCO2 56.7 H, ABG pO2 74 L, Salo Test POS, O2 Delivery Device Nasal Can, Liter Flow 2.0, Blood Gas Notified Whom ED , Blood Gas Notified Time 1607 02/03/18 17:20: Urine Color Yellow, Urine Clarity Sl. Cloudy, Urine pH 7.0, Ur Specific [place] 1.005, Urine Protein Negative, Urine Glucose (UA) [...] SEEN Code Visit Inpatient E AND M: 89764 Init Hosp L3 02/03/181937 <Electronically signed by Joseph Wright MD> Date Joseph Wright MD Cosigner Signature: Date (if applicable) CC: Bhupendra Oliveira MD; Joseph Wright MD Signed URINALYSIS, COMPLETE Collected: 02/03/2018 Status: F Source: KINJAL 5:20 PM [facility] REPOSITORY Order Comment: Order Date: 02/03/18 How [...] AMORPHOUS PHOS Performed By: #### L400.0001 #### [facility] [address] [facility] [place], [address] Observed: 02/03/2018 Status: F Source: STURGEON LEGIONELLA ANTIGEN 5:20 PM [facility] URINE REPOSITORY Legionella, UR Legionella Antigen result interpretation: Negative Presumptive negative for Legionella pneumophila serogroup 1 antigen in urine, suggesting no recent or current infection. POSITIVE Presumptive positive for Legionella pneumophila serogroup 1 antigen in urine, suggesting current or past infection. Legionella Ag, Urine Negative (See interpretation below) Performed By: #### M300.4500 #### [facility] [address] [place], [address] STREP Observed: 02/03/2018 Status: F Source: STURGEON PNEUMONIAE ANTIG(UR,CSF) 5:20 PM [facility] REPOSITORY S pneumo Ag URINE INTERPRETATION Positive [...] interpretation below) Performed By: #### M300.4600 #### [facility] [address] [place], [address] Observed: 02/03/2018 Status: F Source: STURGEON CULTURE, URINE 5:20 PM [facility] REPOSITORY Urine Culture ORGANISM 1: Presumptive E. coli Wilson Count >100,000 Presumptive E. coli: REACTION Amoxacillin/Clavulanic [...] <=20 S (NF) indicates non-formulary drug at [facility]. Approval by Infectious Disease Specialist required before non-formulary drugs may be ordered and/or dispensed. Performed By: #### M100.0650 #### [facility] [address] [place], [address] PROGRESS Observed: 02/03/2018 Status: COMPLETED Source: RELIANCE 4:54 PM [facility] REPOSITORY HNO ID: [id number] Author: Saad (Nina) Larry Service: (none) Author [...] Source: KINJAL CULTURE, BLOOD (WB) 4:20 PM [facility] REPOSITORY BC No growth in 5 days. Performed By: #### M200.1000 #### [facility] [address] [place], [address] BLOOD GASES BY CPS Collected: 02/03/2018 Status: F Source: KINJAL 4:09 PM [facility] REPOSITORY TYPE CODE TESTS RESULT OUT OF [...] SO2 ISTAT Performed By: #### L9000.0800 #### [facility] Point of Care [address] [place], [place] [address] BASIC METABOLIC Collected: 02/03/2018 Status: F Source: KINJAL PROFILE (BMP) 4:00 PM [facility] REPOSITORY TYPE CODE TESTS RESULT OUT OF [...] 6 Performed By: #### L500.2500, L501.4010 #### [facility] [address] [place], [place], [address] TROPONIN-I Collected: 02/03/2018 Status: F Source: STURGEON 4:00 PM [facility] REPOSITORY TYPE CODE TESTS RESULT OUT OF RANGE REFERENCE UNITS LAB L501.4010 <0.045 ng/mL Normal < 0.015 TROPONIN-I Result Comment: TROPONIN-I EXPECTED VALUES <0.045 Negative 0.045 - 0.590 Consistent with Cardiac Damage > OR = 0.600 Critical Value Not every elevated troponin is indicative of AK. These values should be used with clinical judgement in examining the patient's clinical picture for diagnosis. To establish a diagnosis of AK versus myocardial injury, there must be a demonstrated rise and/or fall in the troponin values, in addition to ischemic symptoms, EKG changes, new regional wall motion abnormality, and/or angiographical evidence. PLEASE NOTE: REFERENCE RANGES EDITED 18 Performed By: #### L500.2500, L501.4010 #### [facility] [address] [place], [place], [address] LACTIC ACID Collected: 02/03/2018 Status: F Source: STURGEON 4:00 PM [facility] REPOSITORY Order Comment: Yes/No query for Sepsis Lactate Rule Y TYPE CODE TESTS RESULT OUT OF RANGE REFERENCE UNITS LAB L503.6005 0.4-2.0 mmol/L Normal LACTIC ACID 1.6 Performed By: #### L503.6005 #### [facility] [place], [address] CBC W/DIFF, AUTOMATED Collected: 02/03/2018 Status: F Source: STURGEON 4:00 PM [facility] REPOSITORY TYPE CODE TESTS RESULT OUT OF [...] LYMPHOPENIA NOTED Performed By: #### L100.0100 #### [facility] [address] [place], [address] BNP,B-TYPE NATRIURETIC Collected: 02/03/2018 Status: F Source: KINJAL PEPTIDE 4:00 PM [facility] REPOSITORY TYPE CODE TESTS RESULT OUT OF RANGE REFERENCE UNITS LAB L503.6620 0-100 pg/mL High B-TYPE 141.6 STONEY PEP Performed By: #### L503.6620 #### [facility] [address] [place], [address] Observed: 02/03/2018 Status: F Source: KINJAL CULTURE, BLOOD (WB) 4:00 PM [facility] REPOSITORY BC No growth in 5 days. Performed By: #### M200.1000 #### [facility] [address] [place], [address] CHEST 1 VIEW Observed: 02/03/2018 Status: F Source: KINJAL (PORTABLE) 3:54 PM [facility] REPOSITORY [facility] Imaging Services [address] [place] [address] Chest 1 View (Portable) MR#: [id number] Acct: [id number] Name: TAMIA PANDA Rep #: [id number] : 1955 F 63 From: Gurwinder Canela DO PCP: Bhupendra Oliveira MD Status: REG ER Study: Chest 1 View (Portable) Date of Exam: 02/03/18 Exam# [id number] Ordering Dr: Robert Baird MD STUDY: X-RAY [...] Gurwinder Canela DO at 16:50 EDT Tel [phone], Service support , CC: Bhupendra Oliveira MD; Robert Baird MD Adult Health Clinical Nurse Specialist: Signed PROGRESS Observed: 02/03/2018 Status: COMPLETED Source: RELIANCE 2:42 PM [facility] REPOSITORY HNO ID: [id number] Author: Katie (Graphic Coordinator) Podlogar Service: (none) Author Type: Nurse Practitioner Type: Progress Notes Filed: 02/05/2018 1:06 PM Note Text: 02/03/2018 Patient presents with: Recheck: cough, fevers ,sob SUBJECTIVE: This is a 63 year old that is here today for Above Complaints. Patient was contacted by special needs caregiver Mandie Silvestre R.N. yesterday. Per special needs caregiver note she has been having increased SOB, [...] chronic obstructive pulmonary disease with respiratory failure ([facility]) - AF (paroxysmal atrial fibrillation) ([facility]) - Anxiety - Arthritis Seeing Dr Elliott - Cervical cancer ([facility]) hysterectomy - CHF (congestive heart failure) ([facility]) - Chronic back pain Seeing Dr. Wallace - Constipation - COPD (chronic obstructive pulmonary disease) ([facility]) - Coronary atherosclerosis of suquamish coronary artery Previously seeing Dr. Sosa - DDD (degenerative disc disease), lumbar - DM type 2 (diabetes mellitus, type 2) ([facility]) Seeing Dr. Foley for podiatry - DVT (deep venous thrombosis) ([facility]) Post op INA, BSO. - Dysphagia Seeing Dr. Beaulieu - Emphysema lung ([facility]) - Essential hypertension - Functional dyspepsia - Gastroparesis 2017 mild - GERD without esophagitis - Headache - History of colon polyps 11/28/2016 - Hyperlipidemia - Hypothyroidism - Incontinence Seeing Dr. Chapman - Morbid obesity ([facility]) - Muscle weakness - Nausea - PARESH on CPAP [facility], no longer using as of 10/2017, was not compliant - PE (pulmonary thromboembolism) ([facility]) Post op INA/BSO. - Pneumonia - [...] Please fax 30 day compliance download to [phone]. Dx: G47.33, G47.39. DME: Gloria Ladd (Patient not taking: Reported on 01/23/2018 ) No current facility-administered medications for this visit. Medications and allergies reviewed by this provider. 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 Social History Main Topics [...] increasing drowsiness patient transported by ambulance to [place] [facility]. Report given to Joyce SANTOS and [place] Security Systems Engineer - GLUCOSE, BLOOD (POC) Katie Podlogar, MORTICIAN INVESTIGATOR.EXPERIMENTAL ROCKET SLED MECHANIC Prescription instructions reviewed with patient as applicable. Patient advised if symptoms do not improve or if symptoms worsen sooner, to contact their primary care physician. Potential red flag symptoms discussed with the patient. Reviewed appropriate action plan to take if red flag symptoms occur. Patient agreeable to treatment plan. CNOV Observed: 02/03/2018 Status: COMPLETED Source: RELIANCE 2:20 PM [facility] REPOSITORY Office Visit (FAMPWS) TAMIA PANDA ([id number]) 1955 F Date Time Provider Department 02/03/18 2:20 PM KATIE MCKEON (LM) FAMPWS During your visit today, we recorded the following information about you: Temperature Pulse Blood pressure Weight 98.6 degrees 76/minute 120/68 98 kg Yessi Sanchez LAUNCH LEADER 02/03/2018 2:41 PM Signed Pt winded upon [...] cough. States feeling worse today. Katie Mckeon APRN.LM 02/05/2018 1:06 PM Signed 02/03/2018 Patient presents with: Recheck: cough, fevers ,sob SUBJECTIVE: This is a 63 year old that is here today for Above Complaints. Patient was contacted by special needs caregiver Mandie Silvestre R.N. yesterday. Per special needs caregiver note she has been having increased SOB, [...] chronic obstructive pulmonary disease with respiratory failure ([facility]) - AF (paroxysmal atrial fibrillation) ([facility]) - Anxiety - Arthritis Seeing Dr Elliott - Cervical cancer ([facility]) hysterectomy - CHF (congestive heart failure) ([facility]) - Chronic back pain Seeing Dr. Wallace - Constipation - COPD (chronic obstructive pulmonary disease) ([facility]) - Coronary atherosclerosis of [place] coronary artery Previously seeing Dr. Sosa - DDD (degenerative disc disease), lumbar - DM type 2 (diabetes mellitus, type 2) ([facility]) Seeing Dr. Foley for podiatry - DVT (deep venous thrombosis) ([facility]) Post op INA, BSO. - Dysphagia Seeing Dr. Beaulieu - Emphysema lung ([facility]) - Essential hypertension - Functional dyspepsia - Gastroparesis 2017 mild - GERD without esophagitis - Headache - History of colon polyps 11/28/2016 - Hyperlipidemia - Hypothyroidism - Incontinence Seeing Dr. Chapman - Morbid obesity ([facility]) - Muscle weakness - Nausea - PARESH on CPAP [facility], no longer using as of 10/2017, was not compliant - PE (pulmonary thromboembolism) ([facility]) Post op INA/BSO. - Pneumonia - [...] Please fax 30 day compliance download to [phone]. Dx: G47.33, G47.39. DME: [facility] (Patient not taking: Reported on 01/23/2018 ) No current facility-administered medications for this visit. Medications and allergies reviewed by this provider. 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 Social History Main Topics [...] increasing drowsiness patient transported by ambulance to [place] [facility]. Report given to Joyce SANTOS and [place] Security Systems Engineer - GLUCOSE, BLOOD (POC) Katie Podlogar, MORTICIAN INVESTIGATOR.EXPERIMENTAL ROCKET SLED MECHANIC Prescription instructions reviewed with patient as applicable. Patient advised if symptoms do not improve or if symptoms worsen sooner, to contact their primary care physician. Potential red flag symptoms discussed with the patient. Reviewed appropriate action plan to take if red flag symptoms occur. Patient agreeable to treatment plan. Yessi Sanchez LPN 02/03/2018 3:59 PM Signed family protection specialist wanting 911 called to transport pt to er. For change in mental status confusion. 911 was called pt's information given along with our address and doctor and floor Pt was on. manager service desk was alerted ambulance was called. Ems arrived and spoke with nurse practitioner and transported to [facility]. Referring Provider: SELF [[id number]] Allergies As [...] mental status type [R41.82] Order(s):GLUCOSE, BLOOD (POC) [[id number]] Order #: [id number]. #:[id number] Prescriptions as of 02/03/2018 Sig: OXYCODONE 5 [...] [I25.10] INVALID FOR* Diabetes mellitus, type II ([facility]) [E11.9] INVALID FOR* Morbid obesity ([facility]) [E66.01] Hypothyroidism [E03.9] Anxiety [F41.9] Sleep apnea [G47.30] 02/14/2017 Essential hypertension [I10] 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 CHF (congestive heart failure) ([facility]) [I50.9] BPPV (benign paroxysmal positional vertigo) [...] FOR* Visit Notes: >> Yessi Sanchez LPN donato February 03, 2018 2:37 PM Status: Signed Pt [...] cough. States feeling worse today. >> Yessi Barclay February 03, 2018 3:57 PM Status: Signed family protection specialist wanting 911 called to transport pt to er. For change in mental status confusion. 911 was called pt's information given along with our address and doctor and floor Pt was on. manager service desk was alerted ambulance was called. Ems arrived and spoke with nurse practitioner and transported to [facility]. Encounter Status:Closed by KATIE MCKEON CNP on 02/05/18 PROGRESS Observed: 02/03/2018 Status: COMPLETED Source: RELIANCE 9:12 AM [facility] REPOSITORY HNO ID: [id number] Author: Jessica Lobo (Aroldo) Service: (none) Author Type: Fireboat Operator Type: Progress Notes Filed: 02/03/2018 9:26 AM Note Text: Aroldo called [place] and they advised that SW has to go through [facility] for transportation. [facility] strictly maintains 2 days in advance [...] afternoon 02/03 @2:20 to see ARTURO Wilson. LMTOUTREACH Observed: 02/03/2018 Status: COMPLETED Source: RELIANCE 12:00 AM [facility] REPOSITORY Patient Outreach (FAMPWS) TAMIA PANDA ([id number]) 1955 F Date Time Provider Department 02/03/18 SAAD SILVESTRE (RN) CIERA During your visit [...] Testing has been negative. Last ER visit MD felt episodes could be due to pt [...] LPN - Fully Assessed Reason for Visit: Machine Baster-In Office Visit [4194] Prescriptions as of 02/03/2018 Sig: OXYCODONE 5 [...] [I25.10] INVALID FOR* Diabetes mellitus, type II ([facility]) [E11.9] INVALID FOR* Morbid obesity ([facility]) [E66.01] Hypothyroidism [E03.9] Anxiety [F41.9] Sleep apnea [G47.30] 02/14/2017 Essential hypertension [I10] 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 CHF (congestive heart failure) ([facility]) [I50.9] BPPV (benign paroxysmal positional vertigo) [...] 02/03/18 PROGRESS Observed: 02/02/2018 Status: COMPLETED Source: RELIANCE 4:57 PM [facility] REPOSITORY HNO ID: [id number] Author: Saad Silvestre (Rn) Service: (none) Author [...] PM PROGRESS Observed: 02/02/2018 Status: COMPLETED Source: RELIANCE 4:53 PM [facility] REPOSITORY HNO ID: [id number] Author: Nanda Oliveira) Service: (none) Author Type: Physician Type: Progress Notes Filed: 02/02/2018 4:53 PM Note Text: Reviewed and agree with need for appointment. Continue oxygen at home and use albuterol inhaler every 4 hours for wheezing. If worsening overnight should be seen in the ED. PROGRESS Observed: 02/02/2018 Status: COMPLETED Source: RELIANCE 4:28 PM [facility] REPOSITORY HNO ID: [id number] Author: Saad Silvestre (Rn) Service: (none) Author [...] date of . YES Spoke to patient Service Engine Repairer plan for next outreach: Will follow up tomorrow Signature Saad Silvestre RN February 02, 2018 CNPTOUTREACH Observed: 02/02/2018 Status: COMPLETED Source: RELIANCE 12:00 AM [facility] REPOSITORY Patient Outreach (FAMPWS) TAMIA PANDA ([id number]) 1955 F Date Time Provider Department 02/02/18 SAAD SILVESTRE (NINA) KENDRICKWS During your visit [...] date of . YES Spoke to patient Service Engine Repairer plan for next outreach: Will follow up [...] [place] 02/03/2018 9:26 AM Signed Aroldo called [place] and they advised that SW has to go through [facility] for transportation. [facility] strictly maintains 2 days in advance [...] Wilson. JENAE [place] 02/04/2018 2:39 PM Signed Aroldo called [facility] to cancel transportation to [facility] appt 02/05/18. MTM cancelled patient transportation. Allergies [...] Unknown Date Reviewed: 01/31/2018 Reviewed by: Brenna (Nina) NINA La - Fully Assessed Reason for Visit: Machine Baster Chronic Care [3612] Prescriptions as of 02/02/2018 Sig: OXYCODONE 5 [...] II (HCC) [E11.9] INVALID FOR* Morbid obesity ([facility]) [E66.01] Hypothyroidism [E03.9] Anxiety [F41.9] Sleep apnea [G47.30] 02/14/2017 Essential hypertension [I10] 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 CHF (congestive heart failure) ([facility]) [I50.9] BPPV (benign paroxysmal positional vertigo) [...] Depression [F32.9] INVALID FOR* Encounter Status:Closed by LARRYSHALOMHY on 02/02/18 OPERATIVE NO Observed: 01/31/2018 Status: COMPLETED Source: RELIANCE 12:38 PM [facility] REPOSITORY HNO ID: [id number] Author: Jefferson Connolly Service: General Surgery Author Type: Physician Type: Operative Report Filed: 02/02/2018 2:46 PM Note Text: OPERATIVE/PROCEDURE REPORT LOG ID: [id number] Surgery/Procedure Date: 01/30/2018 Incision/Procedure Start Time: 8:14 PM Incision Close/Procedure End Time: 8:44 PM Surgeon(s)/Proceduralist(s) and Piano Instructor(s): Surgeon(s) and Role: * Jefferson Connolly - [...] #: CNDS Observed: 01/31/2018 Status: COMPLETED Source: RELIANCE 8:30 AM [facility] REPOSITORY HNO ID: [id number] Author: Saba Alarcon Res, MD Service: General Surgery Author Type: Resident Type: [...] per oral pyloromyotomy. She was transferred to [facility] after the procedure for monitoring. On POD [...] PATIENT: (To pull info documented from the [place] Instruct Orderset Complete O/S First): DISCHARGE MEDICATION: [...] hyperglycemia, with long-term current use of insulin ([facility]) !! COMPOUNDED PRESCRIPTION OCD Titration for portable oxygen concentrator Oxygen Flow Rate between 2-6 liters. To keep oxygen saturation at or above 92%. Qty: 1 Each Refills: 0 Associated Diagnoses:Chronic obstructive pulmonary disease, unspecified COPD type ([facility]) insulin lispro (HUMALOG KWIKPEN INSULIN) 200 unit/mL (3 mL) injection Inject subcutaneously 14 units with breakfast, 22 units with lunch, and 24 units with dinner Qty: 18 mL Refills: 5 Associated Diagnoses:Type 2 diabetes mellitus with hyperglycemia, with long-term current use of insulin ([facility]) LYRICA 100 mg capsule TAKE 1 CAPSULE BY MOUTH THREE TIMES A DAY Qty: 84 capsule Refills: 5 Comments: Maximum Refills Reached Associated Diagnoses:Type 2 diabetes mellitus with diabetic neuropathy, with long-term current use of insulin ([facility]) VITAMIN C 500 mg tablet TAKE [...] unspecified vessel or lesion type, unspecified whether [place] or transplanted heart ([facility]) atorvastatin (LIPITOR) 40 mg tablet TAKE [...] amount to perineum and 1 applicator vaginally Fri, Fri, Fri for atrophic vaginitis. Qty: 42.5 Tube [...] Please fax 30 day compliance download to [phone]. Dx: G47.33, G47.39. DME: [facility] Qty: 1 Device Refills: 0 [...] Department Center 02/11/2018 11:00 AM Nanda Rodriguez) [facility] 02/19/2018 9:00 AM Respiratory Therapist [facility] 02/19/2018 9:30 AM Respiratory Therapist [facility] 02/19/2018 10:00 AM Respiratory Therapist [facility] 02/19/2018 10:15 AM Respiratory Therapist [facility] 02/19/2018 10:30 AM Lizette Acosta [facility] 03/02/2018 10:45 AM Jefferson MOLINA A/Cindi BLD 03/02/2018 12:50 PM Sarah Rueda) Mark [facility] 05/06/2018 1:40 PM Shan [facility] SIGNATURE: Saba Alarcon MD PATIENT NAME: Tamia Panda DATE: January 31, 2018 TIME: 8:30 AM PAGER/CONTACT #: [phone] PROGRESS Observed: 01/31/2018 Status: COMPLETED Source: RELIANCE 8:30 AM [facility] [place] REPOSITORY O ID: [id number] Author: Samantha Sanchez Service: General Surgery Author [...] 1329 WBC 8.54 6.60 Test sent to [facility]. -- -- -- 6.54 HB 11.8 12.8 Test sent to [facility]. -- -- -- 13.1 HCT 37.7 42.5 Test sent to [facility]. -- -- -- 43.3 PLT 254 246 Test sent to [facility]. -- -- -- 247 NA 145* 145* Test sent to [facility]. 145* -- < > 138 K 3.6* 4.6 Test sent to [facility]. 4.1 -- < > 5.7* CHLOR 99 99 Test sent to [facility]. 100 -- < > 98 CO2 33* 33* Test sent to [facility]. 29 -- < > 23 BUN 16 16 Test sent to [facility]. 9 -- < > 19 CREAT 0.62 1.11* Test sent to [facility]. 0.75 -- < > 0.89 GLUC 90 110* Test sent to [facility]. 90 -- < > 382* CA 8.7 9.3 Test sent to [facility]. 9.5 -- < > 9.1 MG -- -- -- -- 1.7 -- -- < > = values in this interval not displayed. Liver Function, Amylase, AND Lipase Recent Labs 01/15/18 1240 12/15/17 0925 07/29/17 1656 05/15/17 1309 02/26/17 1515 TPROT 6.7 7.0 -- Test sent to [facility]. 7.1 ALB 3.5* 4.1 -- Test sent to [facility]. 3.3* ALT 11 11 -- Test sent to [facility]. 14 AST 15 14 -- Test sent to [facility]. 19 ALKPHOS 40 38 -- Test sent to [facility]. 38 TBILI 0.5 0.5 -- Test sent to [facility]. 0.5 LACT -- -- 1.5 -- -- Coags Recent Labs 12/15/17 0925 APTT 25.9 INR 1.0 Intake and Output: Date 01/30/18 07 - 01/31/18 0659 01/31/18 0700 - 02/01/18 0659 Shift 4869-6088 2750-9931 4584-0148 24 Hour Total 7487-1447 1528-6574 0352-8989 24 Hour Total I N T A K E PO 240 240 480 PO 240 240 480 IV 600 382 982 D5 0.45%NS w/20KCL 382 382 LR 100 100 OR Crystalloid intake (mL) 500 500 Shift Total 622 169 7710 O U T P U T Urine [...] ORAL q 6 H Sade Wharton MS3 [id number] Please page [phone] for issues after 6PM (7PM on Wednesdays) and all day on the weekends Agree with above. Doing well. Tolerating liquids. Discharge home today. Samantha Sanchez MD, PGY-5 Pager/ *After 6pm and on weekends please page surgery superintendent landfill operations [phone]* NURSING PROG Observed: 01/31/2018 Status: COMPLETED Source: RELIANCE 6:41 AM [facility] REPOSITORY HNO ID: [id number] Author: Nita Sandhu (Rn), RN Service: Nursing Author Type: Registered Nurse [...] NURSING PROG Observed: 01/31/2018 Status: COMPLETED Source: RELIANCE 1:41 AM [facility] REPOSITORY HNO ID: [id number] Author: Nita Sandhu (Rn), RN Service: Nursing Author Type: Registered Nurse Type: Nursing Progress Note Filed: 01/31/2018 1:41 AM Note Text: Falls video disabled. Pt educated on fall risk protocol. Call lite within reach, srx3, bed in lowest position. NURSING PROG Observed: 01/31/2018 Status: COMPLETED Source: RELIANCE 12:31 AM [facility] REPOSITORY HNO ID: [id number] Author: Nita SandhuRn), RN Service: Nursing Author [...] NURSING PROG Observed: 01/30/2018 Status: COMPLETED Source: RELIANCE 11:47 PM [facility] REPOSITORY HNO ID: [id number] Author: Allyssa Cheatham (Rn), RN Service: (none) Author Type: Registered [...] NURSING PROG Observed: 01/30/2018 Status: COMPLETED Source: RELIANCE 11:19 PM [facility] REPOSITORY HNO ID: [id number] Author: Nicole Rodriguez (Rn), RN Service: (none) Author Type: Registered Nurse Type: Nursing Progress Note Filed: 01/30/2018 11:31 PM Note Text: Nursing Progress Note Topic of Note: PACU nursing note Tamia Panda [id number] Late entry- Patient initially arrived to pacu at 2116, in her baseline A-fib rhythm but with heartrate as high as 156/min. Esmolol 30mg given IV by anesthesia and the patient's heartrate did come down to less than 120/min. technical operations vice president also called to the bedside [...] ANES POST Observed: 01/30/2018 Status: COMPLETED Source: RELIANCE 10:17 PM [facility] REPOSITORY HNO ID: [id number] Author: Moreno Doyle) Service: Anesthesiology Author Type: Anesthesiologist Type: Anesthesia PostOp Filed: 01/30/2018 10:21 PM Note Text: POST ANESTHESIA EVALUATION NOTE SERVICE DATE: 01/30/2018 SERVICE TIME: 10:18 PM : 1955 Vitals: 01/30/18 1010 01/30/182116 Temp: 36.1 ?C (97 ?F) 36.4 ?C (97.5 ?F) 01/30/18211601/30/18212901/30/18214401/30/182199 BP: 155/69 163/103 145/74 (!) 100/49 01/30/180 01/30/18214401/30/18219901/30/182204 Pulse: (!) 128 93 120 104 01/30/18211601/30/18212901/30/18214401/30/182199 [...] 30, 2018 TIME: 10:18 PM PAGER/CONTACT #: [phone] PROGRESS Observed: 01/30/2018 Status: COMPLETED Source: RELIANCE 8:54 PM [facility] REPOSITORY HNO ID: [id number] Author: Verona Mark (Res) Service: General Surgery [...] Verona Mark MD General Surgery Resident PGY-3 [id number] BRIEF OP NOT Observed: 01/30/2018 Status: COMPLETED Source: RELIANCE 8:46 PM [facility] REPOSITORY HNO ID: [id number] Author: Verona Mark (Res) Service: General Surgery Author Type: Resident Type: Brief Op Note Filed: 01/30/2018 8:47 PM Note Text: Patient Name: Tamia Panda Log ID: [id number] Surgery Date: 01/30/2018 Incision/Procedure Start Time: 8:14 PM Incision Close/Procedure End Time: 8:44 PM Surgeon(s) and Piano Instructor(s): Surgeon(s) and Role: * Jfeferson Connolly - Primary * Verona Mark - Resident - Assisting Anesthesia: General Endotracheal [...] short stay unit Verona Mark MD Pager: [phone] 01/30/2018 8:46 PM PROGRESS Observed: 01/30/2018 Status: COMPLETED Source: RELIANCE 12:47 PM [facility] REPOSITORY HNO ID: [id number] Author: Paulino Keys (Res) Service: General Surgery [...] NURSING PROG Observed: 01/30/2018 Status: COMPLETED Source: RELIANCE 11:18 AM [facility] REPOSITORY HNO ID: [id number] Author: Cheyenne Ly (Rn), RN Service: Nursing Author Type: Registered Nurse Type: Nursing Progress Note Filed: 01/30/2018 11:18 AM Note Text: MILK TREATER BEDSIDE DELIVERY SURVEY 1. Patient to use Bedside Delivery - YES 2. If fax, patient would like us to fax prescriptions to Pharmacy of choice a. Pharmacy: b. Location: c. Phone: 3. Insurance card on file - NO 4. Credit card for payment - NO No prescriptions yet. Please page [phone] upon discharge. PT ED Observed: 01/30/2018 Status: COMPLETED Source: RELIANCE 10:46 AM [facility] REPOSITORY HNO ID: [id number] Author: Cheyenne Ly (Rn), RN Service: Nursing Author Type: Registered Nurse [...] Signed By: Cheyenne Ly RN In Department: [place] [address] ALLIED HEALTH Observed: 01/30/2018 Status: COMPLETED Source: RELIANCE 10:29 AM [facility] REPOSITORY HNO ID: [id number] Author: Adrien Fajardo () Service: Spiritual Care Author Type: Orthodontist Vice President Type: Allied Health Filed: 01/30/2018 10:30 AM Note Text: SPIRITUAL CARE Spiritual Care Visit Record Name: Tamia Panda Date: January 30, 2018 Type of Visit: Preoperative Prayer/Visit Visit was with (pt, family, other) and name(s): patient (Tamia). Ministry Provided During Visit: Prayer / Meditation Spiritual Presence / Support Spiritual / Theological Reflection Notes: This body fitter provided pre-surgical prayer for patient, family and patient's care team during surgery and during this hospitalization. Referrals: No referral made Will See: n/a Follow-up Notes: Informed patient of Orthodontist Vice President availability Orthodontist Vice President Signature: Chaplain Neela To contact the Spiritual Care Department: Please call [phone] or Page the On-Call Orthodontist Vice President at pager [phone] Thank you for the opportunity to be of service. This is an electronically created document. IF PRINTED, PLEASE DO NOT REMOVE FROM THE CHART OR MODIFY PRINTED COPY. URINALYSIS WITH Collected: 01/27/2018 Status: F Source: RELIANCE MICROSCOPIC 4:01 PM [facility] REPOSITORY TYPE CODE TESTS RESULT OUT OF RANGE REFERENCE UNITS LAB UCOL Yellow Color Yellow LAB [facility] Clear Clarity Clear LAB UGLUC Negative mg/dL Glucose, Urine Negative LAB UBIL Negative Bilirubin, Urine Negative LAB UKET Negative Ketones, Urine Negative LAB USPG 1.005-1.030 Specific [place], Ur 1.011 LAB UHGB Negative Hemoglobin/Blood, Negative [...] Epithelial Cells Performed By: #### UAWMIC #### [employer] [address] [place] [address] Observed: 01/27/2018 Status: F Source: RELIANCE URINE CULTURE 4:01 PM [facility] REPOSITORY Sp. Request/Comment: - Best Practice Alert: To ensure optimal transport conditions and accurate culture results transfer urine specimens to urban top C and S preservative tube. Culture Result - 10,000 - <50,000 CFU/ml Normal urogenital mario Performed By: #### URCUL #### [employer] [address] [place] [id number] VAG PATHOGENS DNA Collected: 01/27/2018 Status: F Source: RELIANCE 3:15 PM [facility] REPOSITORY TYPE CODE TESTS RESULT OUT OF RANGE REFERENCE UNITS LAB TVDNA Negative for Trichomonas Abnormal vaginalis by DNA Trich Specimen Alert Probe vag DNA collected in Probe wrong container type. Result Comment: Account Credited RECEIVED 1 COPAN SWAB. VAGDNA TESTING REQUIRES BD AFFIRM CONTAINER TYPE. LP 0549 [id number] LAB GVDNA Negative for Abnormal Gardnerella Alert vaginalis by DNA Ricardo Specimen Probe vag DNA collected in Probe wrong container type. Result Comment: Account Credited RECEIVED 1 COPAN SWAB. VAGDNA TESTING REQUIRES BD AFFIRM CONTAINER TYPE. LP 0549 [id number] LAB CANDNA Negative for Abnormal Will Alert species by DNA Will sp Specimen Probe DNA Probe collected in wrong container type. Result Comment: Account Credited RECEIVED 1 COPAN SWAB. VAGDNA TESTING REQUIRES BD AFFIRM CONTAINER TYPE. LP 0549 [id number] Performed By: #### VAGDNA #### [employer] [address] [place], [place] [address] Observed: 01/27/2018 Status: F Source: RELIANCE BACT/CAND VAG [facility] ST 3:15 PM [facility] REPOSITORY Sp. Request/Comment: - Swab Smear Result - BACTERIAL VAGINOSIS RESULT: Stain results indicate mixed morphotypes consistent with transition from normal vaginal mario. Rare Polymorphonuclear leukocytes Rare Mononuclear cells Few Epi thelial cells WILL SPECIES RESULT: No Yeast observed Performed By: #### BVCNSM #### [employer] [address] [place], [place] [address] PROGRESS Observed: 01/27/2018 Status: COMPLETED Source: RELIANCE 2:30 PM [facility] REPOSITORY HNO ID: [id number] Author: Katie Rueda) Podlogar Service: (none) Author [...] (no units) Date Value 01/27/2018 neg Specific [place], Ur (no units) Date Value 01/27/2018 1.005 [...] chronic obstructive pulmonary disease with respiratory failure ([facility]) - AF (paroxysmal atrial fibrillation) ([facility]) - Anxiety - Arthritis Seeing Dr Elliott - Cervical cancer ([facility]) hysterectomy - CHF (congestive heart failure) ([facility]) - Chronic back pain Seeing Dr. Wallace - Constipation - COPD (chronic obstructive pulmonary disease) ([facility]) - Coronary atherosclerosis of [place] coronary artery Previously seeing Dr. Sosa - DDD (degenerative disc disease), lumbar - DM type 2 (diabetes mellitus, type 2) ([facility]) Seeing Dr. Foley for podiatry - DVT (deep venous thrombosis) ([facility]) Post op INA, BSO. - Dysphagia Seeing Dr. Beaulieu - Emphysema lung ([facility]) - Essential hypertension - Functional dyspepsia - Gastroparesis 2017 mild - GERD without esophagitis - Headache - History of colon polyps 11/28/2016 - Hyperlipidemia - Hypothyroidism - Incontinence Seeing Dr. Chapman - Morbid obesity ([facility]) - Muscle weakness - Nausea - PARESH on CPAP [facility], no longer using as of 10/2017, was not compliant - PE (pulmonary thromboembolism) ([facility]) Post op INA/BSO. - Pneumonia - [...] Please fax 30 day compliance download to [phone]. Dx: G47.33, G47.39. [facility] (Patient not taking: Reported on 01/23/2018 ) No current facility-administered medications for this visit. Medications and allergies reviewed by this provider. 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 Social History Main Topics [...] plan. CNOV Observed: 01/27/2018 Status: COMPLETED Source: RELIANCE 2:20 PM [facility] REPOSITORY [facility] TAMIA PANDA ([id number]) 1955 F Date Time Provider Department 01/27/18 2:20 PM [facility] MC[facility]ON (LM[facility] During your visit today, we recorded the [...] (no units) Date Value 01/27/2018 neg Specific [place], Ur (no units) Date Value 01/27/2018 1.005 [...] chronic obstructive pulmonary disease with respiratory failure ([facility]) - AF (paroxysmal atrial fibrillation) ([facility]) - Anxiety - Arthritis Seeing Dr Elliott - Cervical cancer ([facility]) hysterectomy - CHF (congestive heart failure) ([facility]) - Chronic back pain Seeing Dr. Wallace - Constipation - COPD (chronic obstructive pulmonary disease) ([facility]) - Coronary atherosclerosis of suquamish coronary artery Previously seeing Dr. Sosa - DDD (degenerative disc disease), lumbar - DM type 2 (diabetes mellitus, type 2) ([facility]) Seeing Dr. Foley for podiatry - DVT (deep venous thrombosis) ([facility]) Post op INA, BSO. - Dysphagia Seeing Dr. Beaulieu - Emphysema lung ([facility]) - Essential hypertension - Functional dyspepsia - Gastroparesis 2017 mild - GERD without esophagitis - Headache - History of colon polyps 11/28/2016 - Hyperlipidemia - Hypothyroidism - Incontinence Seeing Dr. Chapman - Morbid obesity ([facility]) - Muscle weakness - Nausea - PARESH on CPAP [facility], no longer using as of 10/2017, was not compliant - PE (pulmonary thromboembolism) ([facility]) Post op INA/BSO. - Pneumonia - [...] Please fax 30 day compliance download to [phone]. Dx: G47.33 G47.39. DME: [facility] (Patient not taking: Reported on 01/23/2018 ) No current facility-administered medications for this visit. Medications and allergies reviewed by this provider. 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 [employer]. Social History Main Topics Smoking status: [...] area - follow-up as needed Katie Podlogar, MORTICIAN INVESTIGATOR.EXPERIMENTAL ROCKET SLED MECHANIC Prescription instructions reviewed with patient as applicable. [...] [R39.15] Atrophic vaginitis [N95.2] Order(s):UA DIP B/O [[id number]] Order #: [id number] URINALYSIS WITH MICROSCOPIC [SQUAWMIC] Order #: [id number]. #:[id number] VAGINAL PATHOGENS DNA PROBES [SQVAGDNA] Order #: [id number]. #:[id number] URINE CULTURE [SQURCUL] Order #: [id number]. #:[id number] [] fluconazole (DIFLUCAN) 150 mg tabletTake 1 tablet by mouth once daily for 1 day.Disp: 1 tabletRfl: 0 estradiol (ESTRACE) 0.01 % (0.1 mg/gram) vaginal creamApply pea-sized amount to perineum and 1 applicator vaginally Mon, Wed, Fri for atrophic vaginitis.Disp: 42.5 TubeRfl: 0 BACT/WILL VAG GRAM STAIN [SQBVCNSM] Order #: [id number] FUTURE Prescriptions as of 01/27/2018 Sig: INSULIN [...] II (HCC) [E11.9] INVALID FOR* Morbid obesity ([facility]) [E66.01] Hypothyroidism [E03.9] Anxiety [F41.9] Sleep apnea [G47.30] 02/14/2017 Essential hypertension [I10] Coronary artery disease of suquam[place] artery of stoney* AF (paroxysmal atrial fibrillation) ([facility]) [I48.* COPD (chronic obstructive pulmonary disease) (H* GERD without esophagitis [K21.9] Dysphagia [R13.10] Constipation [K59.00] DM type 2 (diabetes mellitus, type 2) ([facility]) [E1* 02/14/2017 Shortness of breath [R06.02] [...] 02/04/18 PROGRESS Observed: 01/23/2018 Status: COMPLETED Source: RELIANCE 2:18 PM [facility] REPOSITORY O ID: [id number] Author: Osmani Jorgensen RN Service: (none) Author [...] 70% mild lvh, rvsp 10mmHG. CARDS ordered [facility] results were no obstructive coronary arteries on [...] BMI 40.16 kg/(m2) Vital signs completed by: ZOFIA Weight acquired: per HANDP. Height acquired: per HANDP Airway Exam: MOUTH OPENING/TMJ: Full jaw ROM MICROGNATHIA/OVERBITE: No MALLAMPATI SCORE is III UPPER LIP BITE TEST: Unable to perform DENTITION: Edentulous/dentures THYROMENTAL DIST: WNL SHORT NECK: Yes - short/thick secondary to obesity. NECK CIRCUMFERENCE >40 cm: Neck Circumference measured at 49 cm NECK FLEX: Full ROM NECK EXTENSION: Full ROM AIRWAY HISTORY: ZOFIA ARKS AIRWAY DETAIL: N/A DATA: EKG READING: Confirmed [...] #: CNOV Observed: 01/23/2018 Status: COMPLETED Source: RELIANCE 12:00 PM [facility] REPOSITORY Office Visit ([facility]) TAMIA PANDA ([id number]) 1955 F Date Time Provider Department 01/23/18 12:00 PM [facility] During your visit today, we [...] 70% mild lvh, rvsp 10mmHG. CARDS ordered [facility] results were no obstructive coronary arteries on [...] NECK EXTENSION: Full ROM AIRWAY HISTORY: IMPACT ARKS AIRWAY DETAIL: N/A DATA: EKG READING: Confirmed [...] PM PAGER/CONTACT #: Referring Provider: JEFFERSON CONNOLLY [[id number]] Allergies As of Date: 01/23/2018 Noted Allergy [...] [I25.10] INVALID FOR* Diabetes mellitus, type II ([facility]) [E11.9] INVALID FOR* Morbid obesity ([facility]) [E66.01] Hypothyroidism [E03.9] Anxiety [F41.9] Sleep apnea [G47.30] 02/14/2017 Essential hypertension [I10] 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 CHF (congestive heart failure) ([facility]) [I50.9] BPPV (benign paroxysmal positional vertigo) [...] [place][] PROGRESS Observed: 01/23/2018 Status: COMPLETED Source: RELIANCE 11:42 AM [facility] REPOSITORY HNO ID: [id number] Author: Sara Baker Ma Service: (none) Author Type: (none) Type: Progress Notes Filed: 01/23/2018 12:50 PM Note Text: Tamia Panda is a 63 year old female here today for visit in [facility] Referring Surgeon: Dr. Connolly Date of Surgery: [...] HISTORY PHYSICAL Observed: 01/23/2018 Status: COMPLETED Source: RELIANCE 11:25 AM [facility] REPOSITORY HNO ID: [id number] Author: Krzysztof Goodwin Service: (none) Author Type: [...] chronic obstructive pulmonary disease with respiratory failure ([facility]) - AF (paroxysmal atrial fibrillation) ([facility]) - Anxiety - Arthritis Seeing Dr Elliott - Cervical cancer ([facility]) hysterectomy - CHF (congestive heart failure) ([facility]) - Chronic back pain Seeing Dr. Wallace - Constipation - COPD (chronic obstructive pulmonary disease) ([facility]) - Coronary atherosclerosis of suquamish coronary artery Previously seeing Dr. Sosa - DDD (degenerative disc disease), lumbar - DM type 2 (diabetes mellitus, type 2) ([facility]) Seeing Dr. Foley for podiatry - DVT (deep venous thrombosis) ([facility]) Post op INA, BSO. - Dysphagia Seeing Dr. Beaulieu - Emphysema lung ([facility]) - Essential hypertension - Functional dyspepsia - Gastroparesis 2016 mild - GERD without esophagitis - Headache - History of colon polyps 11/28/2016 - Hyperlipidemia - Hypothyroidism - Incontinence Seeing Dr. Chapman - Morbid obesity ([facility]) - Muscle weakness - Nausea - PARESH on CPAP [facility], no longer using as of 10/2017, was not compliant - PE (pulmonary thromboembolism) ([facility]) Post op INA/BSO. 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 Social History Main Topics [...] Please fax 30 day compliance download to [phone]. Dx: G47.33, G47.39. DME: [facility] Disp: 1 Device Rfl: 0 [...] fevers. Neuro: No history of TIA's, stroke, PROFESSOR COMPUTER SCIENCE tumor, impaired sensorium, hemiplegia, paraplegia or quadriplegia. [...] dialysis. No history of symptoms or problems. 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 - CAD of the suquamish vessel. Status post PCI (2003). Stable with [...] and Early ambulation ENDOCRINE: DIABETES: - Initiate Guidelines for perioperative diabetes management. Check finger [...] satisfaction. STAFF SIGNATURE: Krzysztof Goodwin MD, MSC, [facility], [facility] assistant professor of historyconservation biology professor, [facility], [facility] Staff, Department of Hospital Medicine Pager Number : [phone] January 23, 2018 11:26 AM CNOV Observed: 01/23/2018 Status: COMPLETED Source: RELIANCE 10:45 AM [facility] REPOSITORY Office Visit (IMPAMN) TAMIA PANDA ([id number]) 1955 F Date Time Provider Department 01/23/18 10:45 AM KRZYSZTOF GOODWIN During your visit today, we recorded the [...] failure (HCC) - AF (paroxysmal atrial fibrillation) ([facility]) - Anxiety - Arthritis Seeing Dr Elliott - Cervical cancer ([facility]) hysterectomy - CHF (congestive heart failure) ([facility]) - Chronic back pain Seeing Dr. Wallace - Constipation - COPD (chronic obstructive pulmonary disease) ([facility]) - Coronary atherosclerosis of suquamish coronary artery Previously seeing Dr. Sosa - DDD (degenerative disc disease), lumbar - DM type 2 (diabetes mellitus, type 2) ([facility]) Seeing Dr. Foley for podiatry - DVT (deep venous thrombosis) ([facility]) Post op INA, BSO. - Dysphagia Seeing Dr. Beaulieu - Emphysema lung ([facility]) - Essential hypertension - Functional dyspepsia - Gastroparesis 2016 mild - GERD without esophagitis - Headache - History of colon polyps 11/28/2016 - Hyperlipidemia - Hypothyroidism - Incontinence Seeing Dr. Chapman - Morbid obesity ([facility]) - Muscle weakness - Nausea - PARESH on CPAP [facility], no longer using as of 10/2017, was not compliant - PE (pulmonary thromboembolism) ([facility]) Post op INA/BSO. 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 Social History Main Topics [...] Please fax 30 day compliance download to [phone]. Dx: G47.33, G47.39. DME: [facility] Disp: 1 Device Rfl: 0 [...] fevers. Neuro: No history of TIA's, stroke, PROFESSOR COMPUTER SCIENCE tumor, impaired sensorium, hemiplegia, paraplegia or quadriplegia. [...] dialysis. No history of symptoms or problems. 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 - CAD of the suquamish vessel. Status post PCI (2003). Stable with [...] and Early ambulation ENDOCRINE: DIABETES: - Initiate Guidelines for perioperative diabetes management. Check finger [...] satisfaction. STAFF SIGNATURE: Krzysztof Goodwin MD, MSC, FHM, FACP assistant professor of historyconservation biology professor, [facility], [facility] Staff, Department of Hospital Medicine Pager Number : [phone] January 23, 2018 11:26 AM Sara Baker Ma 01/23/2018 12:50 PM Signed Tamia Panda is a 63 year old female here today for visit in [facility] Referring Surgeon: Dr. Connolly Date of Surgery: [...] Krzysztof Turner Ma 01/23/2018 12:30 PM Signed [facility] Patient Instructions for Surgery FOOD INSTRUCTIONS: [...] please do not hesitate to contact the [facility] at [phone] or [phone], ext [phone]. 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 ([facility]) [I25.118] AF (paroxysmal atrial fibrillation) ([facility]) [I48.0] Chronic obstructive pulmonary disease, unspecified COPD type (HCC) [J44.9] GERD without esophagitis [K21.9] Hyperlipidemia, unspecified hyperlipidemia type [E78.5] PARESH treated with BiPAP [G47.33] S/P coronary artery stent placement [Z95.5] Stage 3 chronic kidney disease [N18.3] Depression, unspecified depression type [F32.9] Prescriptions as of 01/23/2018 Sig: VetCloudTOUCH ULTRA BLUE TEST STRIP USE DIRECTED TO [...] Essential hypertension [I10] Coronary artery disease of suqu[place] artery of stoney* AF (paroxysmal atrial fibrillation) (HCC) [I48.* COPD (chronic obstructive pulmonary disease) (H* GERD without esophagitis [K21.9] Dysphagia [R13.10] Constipation [K59.00] DM type 2 (diabetes mellitus, type 2) ([facility]) [E1* 02/14/2017 Shortness of breath [R06.02] 02/14/2017 Arthritis [M19.90] More... CHF (congestive heart failure) ([facility]) [I50.9] BPPV (benign paroxysmal positional vertigo) [...] INVALID FOR* Other instructions from your clinician: [facility] Patient Instructions for Surgery FOOD INSTRUCTIONS: [...] please do not hesitate to contact the [facility] at [phone] or [phone], [phone]. STAFF SIGNATURE: Krzysztof Goodwin MD, MSC, [facility], [facility] assistant professor of historyconservation biology professor, [facility], [facility] Staff, Department of Hospital Medicine January 23, 2018 12:24 PM Encounter Status:Closed by KRZYSZTOF GOODWIN MD on 01/23/18 PROGRESS Observed: 01/22/2018 Status: COMPLETED Source: RELIANCE 9:03 AM [facility] REPOSITORY O ID: [id number] Author: Lizette Acosta Service: (none) Author Type: Physician Piano Instructor Type: Progress Notes Filed: 01/22/2018 9:48 AM Note Text: [facility] [place], 01/22/18: INTERVAL HISTORY: Tamia Panda is a 62 year old female who presents here today secondary to hypercapnia, evaluation of COPD and hemoptysis. PMH: PARESH, noncompliant, PE, Hypothyroidism, Hyperlipidemia, GERD, HTN, DM, CAD. Former smoker, quit 2005. 28 pack years. Patient recently admitted to [facility] secondary to altered mental status with [...] with her in the office today. DME: Yani Nogueira. ROS: General: Generally feels better. Appetite fair. Weight stable. Eyes, Ears, nose, throat: No post nasal drip, rhinorrhea, purulent nasal discharge, epistaxis. No hoarseness. Vision stable. Cardiac: No angina, edema. 2 pillow orthopnea. GI: No heartburn. Dysphagia with corn and spaghetti. Feels full quickly. 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 Musculoskeletal: Chronic pain. [...] acceptance of my answers. Lizette Acosta PA-C [facility] [facility] [place] [address] [place] [address] CNOV Observed: 01/22/2018 Status: COMPLETED Source: RELIANCE 9:00 AM [facility] REPOSITORY Office Visit (PULMWS) TAMIA PANDA ([id number]) 1955 F Date Time Provider Department 01/22/18 9:00 AM LIZETTE ACOSTA During your visit today, we recorded the following information about you: Pulse Respiration Blood pressure 83/minute 18/minute 134/84 Lizette Acosta PA-C 01/22/2018 9:48 AM Signed [facility] [place], 01/22/18: INTERVAL HISTORY: Tamia Panda is a 62 year old female who presents here today secondary to hypercapnia, evaluation of COPD and hemoptysis. PMH: PARESH, noncompliant, PE, Hypothyroidism, Hyperlipidemia, GERD, HTN, DM, CAD. Former smoker, quit 2005. 28 pack years. Patient recently admitted to [facility] secondary to altered mental status with [...] with her in the office today. DME: Yani Nogueira. ROS: General: Generally feels better. Appetite fair. Weight stable. Eyes, Ears, nose, throat: No post nasal drip, rhinorrhea, purulent nasal discharge, epistaxis. No hoarseness. Vision stable. Cardiac: No angina, edema. 2 pillow orthopnea. GI: No heartburn. Dysphagia with corn and spaghetti. Feels full quickly. 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 Musculoskeletal: Chronic pain. [...] your BiPAP nightly as directed. -Will contact [facility] for mask fitting. Patient had a previous [...] acceptance of my answers. Lizette Acosta PA-C [facility] [address] [place] [address] Lizette Acosta PA-C 01/22/2018 9:47 AM Signed [...] continuously as directed. Referring Provider: NANDA OLIVEIRA) [[id number]] Allergies As of Date: 01/22/2018 Noted Allergy [...] apnea) [G47.33] Order(s):SPIROMETRY WITH DILATOR IF OBSTRUCTED [[id number]] Order #: [id number] FUTURE OXIMETRY WITH AMBULATION [[id number]] Order #: [id number] FUTURE LUNG VOLUMES [[id number]] Order #: [id number] FUTURE LUNG DIFFUSION CAPACITY (DLCO) [[id number]] Order #: [id number] FUTURE COMPOUNDED PRESCRIPTIONPlease fit for BiPAP mask.Disp: [...] [I25.10] INVALID FOR* Diabetes mellitus, type II ([facility]) [E11.9] INVALID FOR* Morbid obesity ([facility]) [E66.01] Hypothyroidism [E03.9] Anxiety [F41.9] Sleep apnea [G47.30] 02/14/2017 Essential hypertension [I10] 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 CHF (congestive heart failure) ([facility]) [I50.9] BPPV (benign paroxysmal positional vertigo) [...] 01/22/18 PROGRESS Observed: 01/19/2018 Status: COMPLETED Source: RELIANCE 1:49 PM [facility] REPOSITORY HNO ID: [id number] Author: Saad Allen) Larry Service: (none) Author Type: Registered Nurse Type: Progress Notes Filed: 01/19/2018 1:51 PM Note Text: Spoke with Dr. Middleton's nurse and PCP, order for sleep titration faxed to [facility], PCP will write initial order and pt will f/u 60-90 days after restarting BIPAP with Dr. Middleton in April. Saad Silvestre RN PROGRESS Observed: 2018 Status: COMPLETED Source: RELIANCE 2:29 PM [facility] REPOSITORY HNO ID: [id number] Author: Saad Allen) Larry Service: (none) Author Type: Registered Nurse Type: Progress Notes Filed: 01/19/2018 1:51 PM Note Text: TC to patient, discussed having to repeat sleep study and discussed scheduling with Dr. Amador sooner than April with Dr. Middleton. PROGRESS Observed: 2018 Status: COMPLETED Source: RELIANCE 12:05 PM [facility] REPOSITORY HNO ID: [id number] Author: Nanda Rodriguez) Brian Service: (none) Author Type: Physician Type: Progress Notes Filed: 01/19/2018 1:51 PM Note Text: New PSG order placed. Will have patient follow up with sleep medicine as well. PROGRESS Observed: 2018 Status: COMPLETED Source: RELIANCE 11:08 AM [facility] REPOSITORY HNO ID: [id number] Author: Saad Allen) Larry Service: (none) Author Type: Registered Nurse Type: Progress Notes Filed: 2018 11:12 AM Note Text: TC to [facility] (oxygen provider), asked about a [...] AM PROGRESS Observed: 2018 Status: COMPLETED Source: RELIANCE 11:01 AM [facility] REPOSITORY HNO ID: [id number] Author: Saad Allen) Larry Service: (none) Author [...] AND DIFFERENTIAL Collected: 01/15/2018 Status: F Source: RELIANCE 12:40 PM [facility] REPOSITORY TYPE CODE TESTS RESULT OUT OF [...] k/uL Abs Lymph 1.16 LAB AMONO % Pepin% 7.5 LAB AAMONO <0.87 k/uL Abs Pepin 0.64 LAB AEOS % Eosin% 3.2 LAB AAEOS <0.46 k/uL Abs Eosin 0.27 LAB ABASO % Baso% 0.4 LAB AABASO <0.11 k/uL Abs Baso 0.03 LAB AUNRBC 0 /100 WBC NRBCs 0.0 LAB ABNRBC <0.01 k/uL Absolute nRBC <0.01 LAB DTYP DTYPE Auto Diff Performed By: #### CBCDIF, CMP #### [facility] [address] [place], [place] [address] COMP METABOLIC PANEL Collected: 01/15/2018 Status: F Source: RELIANCE 12:40 PM [facility] REPOSITORY TYPE CODE TESTS RESULT OUT OF REFERENCE UNITS RANGE LAB TP 6.3-8.0 g/dL Protein, Total 6.7 LAB ALB 3.9-4.9 g/dL Low Albumin 3.5 LAB CA 8.5-10.2 mg/dL Calcium, Total 8.7 LAB TBIL 0.2-1.3 mg/dL Bilirubin, Total 0.5 LAB ALKP 32-117 U/L Alkaline Phosphatase 40 LAB AST 13-35 U/L AST 15 LAB GLU 74-99 mg/dL Glucose 90 Result Comment: The [place] Diabetes Association (ADA) provides guidance for cutoff [...] Standards of Medical Care in Diabetes 2016, [place] [employer]. Diabetes Care. 2016.39(Suppl 1). LAB [...] GFR. Performed By: #### CBCDIF, CMP #### [facility] [address] [place] [id number] PROGRESS Observed: 01/15/2018 Status: COMPLETED Source: RELIANCE 11:58 AM [facility] REPOSITORY O ID: [id number] Author: Saad (Rn) Larry Service: (none) Author [...] 2018 PROGRESS Observed: 01/15/2018 Status: COMPLETED Source: RELIANCE 10:50 AM [facility] REPOSITORY HNO ID: [id number] Author: Nanda Rodriguez) Brian Service: (none) Author Type: Physician Type: Progress Notes Filed: 2018 2:17 PM Note Text: Chief Complaint No chief complaint on file. HPI Tamia Panda is a 62 year old female who presents here today for Hospital Discharge Follow up. Admitted to [facility] from 01/02-01/04 for complaint of altered mental [...] and . ? SUMMARY: -Pt discharged from [facility] on 01/04. -Follow up appointment on 01/15 [...] due to sleep apnea. 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 CO2 retention may be happening during the [...] chronic obstructive pulmonary disease with respiratory failure ([facility]) - AF (paroxysmal atrial fibrillation) ([facility]) - Anxiety - Arthritis Seeing Dr Elliott - Cervical cancer ([facility]) hysterectomy - CHF (congestive heart failure) ([facility]) - Chronic back pain Seeing Dr. Wallace - Constipation - COPD (chronic obstructive pulmonary disease) ([facility]) - Coronary atherosclerosis of suquamish coronary artery Previously seeing Dr. Sosa - DDD (degenerative disc disease), lumbar - DM type 2 (diabetes mellitus, type 2) ([facility]) Seeing Dr. Foley for podiatry - DVT (deep venous thrombosis) ([facility]) Post op INA, BSO. - Dysphagia Seeing Dr. Beaulieu - Emphysema lung ([facility]) - Essential hypertension - Functional dyspepsia - Gastroparesis 2017 mild - GERD without esophagitis - Headache - History of colon polyps 11/28/2016 - Hyperlipidemia - Hypothyroidism - Incontinence Seeing Dr. Chapman - Morbid obesity ([facility]) - Muscle weakness - Nausea - PARESH on CPAP [facility], no longer using as of 10/2017, was not compliant - PE (pulmonary thromboembolism) ([facility]) Post op INA/BSO. 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 Social History Main Topics [...] PULM/CRITICAL CARE 7. 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 Continue current regimen and follow up with cardiology. 8. 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 With recent [...] with long- term current use of insulin ([facility]) - ICD9: 250.00, 790.29, V58.67, ICD10: E11.65, Z79.4 Decrease lantus to 56 units BID due to recent hypoglycemia. Will have PCC contact patient next week to follow up on glucose readings. - INSULIN GLARGINE (U-100) 100 UNIT/ML (3 ML) SUBCUTANEOUS PEN Nanda Oliveira MD CNOV Observed: 01/15/2018 Status: COMPLETED Source: RELIANCE 10:40 AM [facility] REPOSITORY Office Visit (FAMPWS) TAMIA PANDA ([id number]) 1955 F Date Time Provider Department 01/15/18 [...] for Hospital Discharge Follow up. Admitted to [facility] from 01/02-01/04 for complaint of altered mental [...] and . ? SUMMARY: -Pt discharged from [facility] on 01/04. -Follow up appointment on 01/15 w/PCP. -Medication review done no. -Admitted for: Altered mental status ? CONCERNS: Discussed concern of possible carbon monoxide exposure and pt to ask [facility] for carbon monoxide monitor. Discussed wearing BiPap at night, pt states she hates it. Discussed two times her altered mental status has been in morning and MD concerned it may be due to sleep apnea. 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 CO2 retention may be happening during the [...] chronic obstructive pulmonary disease with respiratory failure ([facility]) - AF (paroxysmal atrial fibrillation) ([facility]) - Anxiety - Arthritis Seeing Dr Elliott - Cervical cancer ([facility]) hysterectomy - CHF (congestive heart failure) ([facility]) - Chronic back pain Seeing Dr. Wallace - Constipation - COPD (chronic obstructive pulmonary disease) ([facility]) - Coronary atherosclerosis of suquam[place] coronary artery Previously seeing Dr. Sosa - DDD (degenerative disc disease), lumbar - DM type 2 (diabetes mellitus, type 2) ([facility]) Seeing Dr. Foley for podiatry - DVT (deep venous thrombosis) ([facility]) Post op INA, BSO. - Dysphagia Seeing Dr. Beaulieu - Emphysema lung ([facility]) - Essential hypertension - Functional dyspepsia - Gastroparesis 2016 mild - GERD without esophagitis - Headache - History of colon polyps 11/28/2016 - Hyperlipidemia - Hypothyroidism - Incontinence Seeing Dr. 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 Social History Main Topics [...] PULM/CRITICAL CARE 7. 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 Continue current regimen and follow up with cardiology. 8. Chronic anticoagulation - ICD9: V58.61, ICD10: Z79.01 Patient on Eliquis shelter for history of a fib. With recent [...] [E87.6] Hemoptysis [R04.2] Coronary artery disease of suquamish artery of suquamish heart with stable angina pectoris (HCC) [I25.118] Chronic anticoagulation [Z79.01] Essential hypertension [I10] Hospital discharge follow-up [Z09] Type 2 diabetes mellitus with hyperglycemia, with long-term current use of insulin ([facility]) [E11.65, Z79.4] Order(s):CONSULT TO SLEEP MEDICINE - ADULT [[id number]] Order #: [id number]: 1 CBC + DIFF [SQCBCDIF] Order #: [id number] FUTURE COMP METABOLIC PANEL [SQCMP] Order #: [id number] FUTURE insulin glargine (LANTUS SOLOSTAR U-100 INSULIN) 100 unit/mL (3 mL) inpnInject 56 units subcutaneously twice dailyDisp: Rfl: CONSULT TO PULM/CRITICAL CARE [[id number]] Order #: [id number]: 1 BIPAPBilevel PAP 15/11 cmH2O with 2 LPM oxygen bleed in, mask, tubing, filters, heated humidity, lifetime supplies. Please fax 30 day compliance download to [phone]. Dx: G47.33, G47.39. DME: [facility]p: 1 [...] Essential hypertension [I10] 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 CHF (congestive heart failure) ([facility]) [I50.9] BPPV (benign paroxysmal positional vertigo) [...] Please fax 30 day compliance download to [phone]. Dx: G47.33, G47.39. DME: [facility] INSULIN GLARGINE (U-100) 100 UNIT/ML* 01/15/2018 Class: Med Update Sig: Inject 56 units subcutaneously twice daily BIPAP 1 De* 0 01/15/2018 Class: Print RX Sig: Bilevel PAP 15/11 cmH2O with 2 LPM oxygen bleed in, mask, tubing, filters, heated humidity, lifetime supplies. Please fax 30 day compliance download to [phone]. Dx: G47.33, G47.39. DME: [facility] Medications Discontinued During This Encounter insulin [...] Please fax 30 day compliance download to [phone]. Dx: G47.33, G47.39. [facility] Disc: Reason for discontinue is not on file. Disposition: Return if symptoms worsen or fail to improve. Follow-up and Disposition History Recorded Encounter Status:Closed by NANDA OLIVEIRA MD on 01/16/18 EMERGENCY DEPARTMENT Observed: 01/15/2018 Status: F Source: STURGEON SUMMARY 4:50 AM [facility] REPOSITORY [facility] Medical Records Department [address] [place] [address] Emergency Department Summary 01/15/18 0405 MR#: [id number] Acct: [id number] Name: TAMIA PANDA Rep #: [id number] : 1955 62 From: Roger Laguna MD [...] blood-tinged mucus This note was generated with Q1 Labsation software. It may contain incorrect words, spelling, [...] problems, contact your Primary Care Provider. Call [email or web address] ([phone]) or report to the closest Emergency Room. Call 911 if necessary. 01/15/18 0450 <Electronically signed by Roger Laguna MD> Date Roger Laguna MD Cosigner Signature (If Indicated): Date CC: Bhupendra Oliveira MD DISCHARGE INSTRUCTION Observed: 01/15/2018 Status: F Source: KINJAL 4:50 AM [facility] REPOSITORY [facility] Medical Records Department [address] [place] [address] Discharge Instruction 01/15/187 MR#: [id number] Acct: [id number] Name: TAMIA PANDA Rep #: [id number] : 1955 62 From: Roger Laguna MD PCP: Bhupendra Oliveira MD Status: REG ER ED Disposition - Plan for ED Patient: Chief Complaint: Cough Instructions: What is COPD? Referrals: Bhupendra Oliveira MD [Primary Care Provider] - What to do if you have Problems For any increased pain, shortness of breath, bleeding, nausea or vomiting, chest pain, or any unexpected problems, contact your Primary Care Provider. Call [facility] ([phone]) or report to the closest Emergency Room. Call 911 if necessary. 01/15/18 0450 <Electronically signed by Roger Laguna MD> Date Roger Laguna MD Cosigner Signature (If Indicated): Date CC: Bhupendra Oliveira MD CHEST 1 VIEW Observed: 01/15/2018 Status: F Source: STURGEON 3:42 AM [facility] REPOSITORY [facility] Imaging Services [address] [place] [address] Chest 1 View MR#: [id number] Acct: [id number] Name: TAMIA PANDA Rep #: [id number] : 1955 F 62 From: Darrel Mandel MD PCP: Bhupendra Oliveira MD Status: REG ER Study: Chest 1 View Date of Exam: 01/15/18 Exam# [id number] Ordering Dr: Roger Laguna MD STUDY: X-RAY [...] CC: Bhupendra Oliveira MD; Roger Laguna MD Adult Health Clinical Nurse Specialist: Signed MELCHOR Observed: 01/15/2018 Status: COMPLETED Source: RELIANCE 12:00 AM [facility] REPOSITORY Patient Outreach (FAMPWS) TAMIA PANDA ([id number]) 1955 F Date Time Provider Department 01/15/18 [...] Plan For Next Call: 3 weeks Saad Silvsetre RN January 15, 2018 Saad Silvestre RN [...] RN 2018 11:12 AM Signed TC to [facility] (oxygen provider), asked about a [...] PCP, order for sleep titration faxed to [facility], PCP will write initial order and pt [...] LPN - Fully Assessed Reason for Visit: Machine Baster-In Office Visit [4194] Primary Visit Diagnosis:Obstructive sleep apnea [G47.33] Order(s):POLYSOMNOGRAM (PSG)/HOME SLEEP APNEA TESTING (HSAT) [[id number]] Order #: [id number] FUTURE Prescriptions as of 01/15/2018 Sig: INSULIN [...] [I25.10] INVALID FOR* Diabetes mellitus, type II ([facility]) [E11.9] INVALID FOR* Morbid obesity ([facility]) [E66.01] Hypothyroidism [E03.9] Anxiety [F41.9] Sleep apnea [G47.30] 02/14/2017 Essential hypertension [I10] 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 CHF (congestive heart failure) ([facility]) [I50.9] BPPV (benign paroxysmal positional vertigo) [H8*INVALID FOR* RLS (restless legs syndrome) [G25.81] INVALID FOR* Iron deficiency concern: RE RLS [E61.1] INVALID FOR* Tubular adenoma [D36.9] INVALID FOR* Incontinence [R32] More... Gastroparesis [K31.84] INVALID FOR* Pre-op testing [Z01.818] INVALID FOR* More... Encounter Status:Closed by SAAD SILVESTRE on 01/19/18 PROGRESS Observed: 01/09/2018 Status: COMPLETED Source: RELIANCE 12:38 PM [facility] REPOSITORY HNO ID: [id number] Author: Chris Rueda) Kourtney Service: (none) Author Type: Nurse Practitioner Type: Progress Notes Filed: 01/09/2018 12:39 PM Note Text: Reviewed and Agree. Follow up as planned next week. 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 Follow up as planned next week. 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 Allergies As of Date: 01/09/2018 Noted Allergy [...] LPN - Fully Assessed Reason for Visit: Machine Baster - Patient Initiated [3614] Prescriptions as of [...] [I25.10] INVALID FOR* Diabetes mellitus, type II ([facility]) [E11.9] INVALID FOR* Morbid obesity ([facility]) [E66.01] Hypothyroidism [E03.9] Anxiety [F41.9] Sleep apnea [G47.30] 02/14/2017 Essential hypertension [I10] 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 CHF (congestive heart failure) ([facility]) [I50.9] BPPV (benign paroxysmal positional vertigo) [H8*INVALID FOR* RLS (restless legs syndrome) [G25.81] INVALID FOR* Iron deficiency concern: RE RLS [E61.1] INVALID FOR* Tubular adenoma [D36.9] INVALID FOR* Incontinence [R32] More... Gastroparesis [K31.84] INVALID FOR* Pre-op testing [Z01.818] INVALID FOR* More... Encounter Status:Closed by CHRIS OCONNELL on 01/09/18 12 LEAD ELECTROCARDIOGRAM Observed: 01/06/2018 Status: F Source: KINJAL 3:25 PM [facility] REPOSITORY [facility] Cardiovascular Services [facility] [place] [address] 12 Lead EKG 01/03/18 2324 MR#: [id number] Acct: [id number] Name: TAMIA PANDA Rep #: [id number] : 1955 62 From: Nora Ramsey MD Attending Dr: Shruthi Christie M.D. Status: DIS NICOLE Ordering Dr: Arielle Lawrence Date: 01/03/18 Location: [facility] Sex: F C Admitted: 01/02/18 Test Reason [...] ECG Confirmed by EMILY ABRAHAM, NORA ([id number]), state editor SHYANNE TERRAZAS ([id number]) on 01/06/2018 3:24:30 PM Referred By: Confirmed By:NORA RAMSEY MD 01/06/18 1524 Date Nora Ramsey MD CC: Arielle Lawrence; Bhupendra Oliveira MD; Shruthi Christie M.D. Signed 12 LEAD ELECTROCARDIOGRAM Observed: 01/06/2018 Status: F Source: STURGEON 1:49 PM [facility] REPOSITORY [facility] Cardiovascular Services [address] [place] [address] 12 Lead EKG 01/02/18 0949 MR#: [id number] Acct: [id number] Name: TAMIA PANDA Rep #: [id number] : 1955 62 From: Bart Blas MD Attending Dr: Shruthi Christie M.D. Status: DIS NICOLE Ordering Dr: Bao Quintana MD Date: 01/02/18 Location: [facility] Sex: F C Admitted: 01/02/18 Test Reason [...] ECG Confirmed by BART BLAS MD ([id number]), state editor SHYANNE TERRAZAS ([id number]) on 01/06/2018 1:48:31 PM Referred By: LAURA Confirmed By:BART BLAS MD 01/06/18 1348 Date Bart Blas MD CC: Bhupendra Oliveira MD; Bao Quintana MD; Shruthi Christie M.D. Signed PROGRESS Observed: 01/06/2018 Status: COMPLETED Source: RELIANCE 12:07 PM [facility] REPOSITORY HNO ID: [id number] Author: Nanda Oliveira Service: (none) Author Type: Physician Type: Progress Notes Filed: 01/06/2018 12:07 PM Note Text: Reviewed. PROGRESS Observed: 01/06/2018 Status: COMPLETED Source: RELIANCE 12:07 PM [facility] REPOSITORY HNO ID: [id number] Author: Nafisa HarrisonRn) NINA Subramanian Service: (none) Author Type: Registered Nurse Type: Progress Notes Filed: 01/06/2018 12:08 PM Note Text: . PROGRESS Observed: 01/06/2018 Status: COMPLETED Source: RELIANCE 11:58 AM [facility] REPOSITORY HNO ID: [id number] Author: Nafisa HarrisonRn) NINA Subramanian Service: (none) Author Type: Registered Nurse Type: Progress Notes Filed: 01/06/2018 11:58 AM Note Text: . HOSP Observed: 01/06/2018 Status: COMPLETED Source: RELIANCE 12:00 AM [facility] REPOSITORY Patient:Tamia Panda MRN: <[id number]> Height:5' 1.811(1.57 m) Weight:219 lb (99.338 kg) [...] cream ULTICARE PEN NEEDLE 31 gauge x 16 ndle VITAMIN C 500 mg tablet Ferrous [...] Coronary disease [I25.10] Diabetes mellitus, type II (HCC) [E11.9] Morbid obesity (HCC) [E66.01] Hypothyroidism [E03.9] Anxiety [F41.9] Essential hypertension [I10] Coronary artery disease of su[place] artery of suqu[place]ish heart with stable angina pectoris (HCC) [I25.118] AF (paroxysmal atrial fibrillation) ([facility]) [I48.0] COPD (chronic obstructive pulmonary disease) (HCC) [J44.9] GERD without esophagitis [K21.9] Dysphagia [R13.10] Constipation [K59.00] Arthritis [M19.90] CHF (congestive heart failure) ([facility]) [I50.9] BPPV (benign paroxysmal positional vertigo) [...] chronic obstructive pulmonary disease with respiratory failure ([facility]) - AF (paroxysmal atrial fibrillation) ([facility]) - Anxiety - Arthritis Seeing Dr Elliott - Cervical cancer ([facility]) hysterectomy - CHF (congestive heart failure) ([facility]) - Chronic back pain Seeing Dr. Wallace - Constipation - COPD (chronic obstructive pulmonary disease) ([facility]) - Coronary atherosclerosis of suquamish coronary artery Previously seeing Dr. Sosa - DDD (degenerative disc disease), lumbar - DM type 2 (diabetes mellitus, type 2) ([facility]) Seeing Dr. Foley for podiatry - DVT (deep venous thrombosis) ([facility]) Post op INA, BSO. - Dysphagia Seeing Dr. Beaulieu - Emphysema lung ([facility]) - Essential hypertension - Functional dyspepsia - Gastroparesis 2016 mild - GERD without esophagitis - Headache - History of colon polyps 11/28/2016 - Hyperlipidemia - Hypothyroidism - Incontinence Seeing Dr. Chapman - Morbid obesity ([facility]) - Muscle weakness - Nausea - PARESH on CPAP [facility], no longer using as of 10/2017, was not compliant - PE (pulmonary thromboembolism) ([facility]) Post op INA/BSO. 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 Social History Main Topics [...] Please fax 30 day compliance download to [phone]. Dx: G47.33, G47.39. [facility]: [facility] Disp: 1 Device Rfl: 0 COMPOUNDED PRESCRIPTION [...] fevers. Neuro: No history of TIA's, stroke, PROFESSOR COMPUTER SCIENCE tumor, impaired sensorium, hemiplegia, paraplegia or quadriplegia. [...] dialysis. No history of symptoms or problems. 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 - CAD of the suquamish vessel. Status post PCI (2003). Stable with [...] and Early ambulation ENDOCRINE: DIABETES: - Initiate Guidelines for perioperative diabetes management. Check finger [...] satisfaction. STAFF SIGNATURE: Krzysztof Goodwin MD, MSC, [facility], FACP assistant professor of historyconservation biology professor, [facility], [facility] Staff, Department of Hospital Medicine Pager Number : [phone] January 23, 2018 11:26 AM Sara Baker Ma 01/23/2018 12:50 PM Signed Tamia Panda is a 63 year old female here today for visit in [facility] Referring Surgeon: Dr. Connolly Date of Surgery: [...] Krzysztof Turner Ma 01/23/2018 12:30 PM Signed [facility] Patient Instructions for Surgery FOOD INSTRUCTIONS: [...] please do not hesitate to contact the [facility] at [phone] or [phone], ext [phone]. STAFF SIGNATURE: Krzysztof Goodwin MD, MSC, [facility], FACP assistant professor of historyconservation biology professor, [facility], [facility] Staff, Department of Hospital Medicine January 23, 2018 12:24 PM Progress Notes ([facility]): Osmani Jorgensen RN 01/23/2018 2:33 PM [...] 70% mild lvh, rvsp 10mmHG. CARDS ordered [facility] results were no obstructive coronary arteries on [...] BMI 40.16 kg/(m2) Vital signs completed by: ZOFIA Weight acquired: per HANDP. Height acquired: per HANDP Airway Exam: MOUTH OPENING/TMJ: Full jaw ROM MICROGNATHIA/OVERBITE: No MALLAMPATI SCORE is III UPPER LIP BITE TEST: Unable to perform DENTITION: Edentulous/dentures THYROMENTAL DIST: WNL SHORT NECK: Yes - short/thick secondary to obesity. NECK CIRCUMFERENCE >40 cm: Neck Circumference measured at 49 cm NECK FLEX: Full ROM NECK EXTENSION: Full ROM AIRWAY HISTORY: ZOFIA ARKS AIRWAY DETAIL: N/A DATA: EKG READING: Confirmed [...] #: PROGRESS Observed: 01/05/2018 Status: COMPLETED Source: RELIANCE 5:10 PM [facility] REPOSITORY HNO ID: [id number] Author: Saad (Nina) Larry Service: (none) Author [...] name and . SUMMARY: -Pt discharged from [facility] on 01/04. -Follow up appointment on 01/15 [...] due to sleep apnea. 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 CO2 retention may be happening during the [...] Silvestre RN January 05, 2018 5:28 PM CNPTOUTREACH Observed: 01/05/2018 Status: COMPLETED Source: RELIANCE 12:00 AM [facility] REPOSITORY Patient Outreach (FAMPWS) TAMIA PANDA ([id number]) 1955 F Date Time Provider Department 01/05/18 SAAD SILVESTRE (RN) KENDRICKWS During your visit [...] name and . SUMMARY: -Pt discharged from [facility] on 01/04. -Follow up appointment on 01/15 [...] due to sleep apnea. 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 CO2 retention may be happening during the [...] LPN - Fully Assessed Reason for Visit: Machine Baster Hospital Follow Up [0557] Prescriptions as of 01/05/2018 Sig: SUCRALFATE 100 [...] II (HCC) [E11.9] INVALID FOR* Morbid obesity ([facility]) [E66.01] Hypothyroidism [E03.9] Anxiety [F41.9] Sleep apnea [G47.30] 02/14/2017 Essential hypertension [I10] 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 CHF (congestive heart failure) ([facility]) [I50.9] BPPV (benign paroxysmal positional vertigo) [H8*INVALID FOR* RLS (restless legs syndrome) [G25.81] INVALID FOR* Iron deficiency concern: RE RLS [E61.1] INVALID FOR* Tubular adenoma [D36.9] INVALID FOR* Incontinence [R32] More... Gastroparesis [K31.84] INVALID FOR* Pre-op testing [Z01.818] INVALID FOR* More... Encounter Status:Closed by SAAD SILVESTRE on 01/06/18 DISCHARGE SUMMARY Observed: 01/04/2018 Status: F Source: STURGEON 2:56 PM [facility] REPOSITORY [facility] Medical Records Department [address] [place] [address] Discharge Summary 01/04/18 1450 MR#: [id number] Acct: [id number] Name: TAMIA PANDA Rep #: [id number] : 1955 62 From: Shruthi Christie MD PCP: Bhupendra Oliveira MD Status: ADM NICOLE Y Location: [place] [address] Discharge Date and Diagnosis - Problem List [...] at 10:14 EDT , Service support , TOP CARRIER: None. 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 CO2 retention may be happening during the [...] applicable Code Visit OBSV E AND M: [id number] Observation care discharge 01/04/18 1456 <Electronically signed by Shruthi Christie MD> Date Shruthi Christie MD Cosigner Signature (if applicable): Date CC: Bhupendra Oliveira MD; Shruthi Christie M.D. Signed DISCHARGE INSTRUCTION Observed: 01/04/2018 Status: F Source: KINJAL 2:49 PM [facility] REPOSITORY [facility] Medical Records Department [address] [place] [address] Instructions for Home/Discharge Instructions 01/04/18 1448 MR#: [id number] Acct: [id number] Name: TAMIA PANDA Rep #: [id number] : 1955 62 From: Shruthi Christie MD [...] Physician in: 5 to 7 days 01/04/18 0059 <Electronically signed by Shruthi Christie MD> Date Shruthi Christie MD CC: Bhupendra Oliveira MD TROPONIN-I Collected: 01/04/2018 Status: F Source: KINJAL 1:40 PM [facility] REPOSITORY Order Comment: 'TROP' Serial specimen #1, #2, #3, or #4: 4 TYPE CODE TESTS RESULT OUT OF RANGE REFERENCE UNITS LAB L501.4010 <0.06 ng/mL Normal < 0.02 TROPONIN-I Result Comment: TROPONIN-I EXPECTED VALUES <0.05 NEGATIVE 0.06 - 0.59 AT RISK OF AK > OR = 0.60 SUGGEST AK Performed By: #### L501.4010 #### [facility] [address] [place], [place], [address] BEDSIDE GLUCOSE Collected: 01/04/2018 Status: F Source: KINJAL 11:29 AM [facility] REPOSITORY TYPE CODE TESTS RESULT OUT OF REFERENCE UNITS RANGE LAB L501.080 70-110 mg/dL High BEDSIDE GLU 307 Result Comment: MANAGEMENT OF PATIENT CARE PER NURSING PROTOCOL Performed By: #### L501.080 #### [facility] Point of Care [address] [place] [address] HISTORY AND PHYSICAL Observed: 01/04/2018 Status: F Source: STURGEON EXAM 8:20 AM [facility] REPOSITORY [facility] Medical Records Department [address] [place] [address] History and Physical 01/02/182024 MR#: [id number] Acct: [id number] Name: TAMIA PANDA Rep #: [id number] : 1955 62 From: Shruthi Christie MD PCP: Bhupendra Oliveira MD Status: ADM NICOLE Y Location: [place] [address] ADDENDUM by Shruthi Christie M.D. on 01/04/18 at 0820 Code Visit OBSV E AND M: [id number] Initial observation care L3 01/04/18 0820 <Electronically [...] ligation. 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 Smoking Status: Former smoker - *Family [...] days. Code Visit Inpatient E AND M: 18947 Init Hosp 01/04/18814 <Electronically signed by Shruthi Christie MD> Date Shruthi Christie MD Cosigner Signature: Date (if applicable) CC: Bhupendra Oliveira MD; Shruthi Christie M.D. Signed BEDSIDE GLUCOSE Collected: 01/04/2018 Status: F Source: KINJAL 6:45 AM [facility] REPOSITORY TYPE CODE TESTS RESULT OUT OF REFERENCE UNITS RANGE LAB L501.080 70-110 mg/dL High BEDSIDE GLU 134 Result Comment: MANAGEMENT OF PATIENT CARE PER NURSING PROTOCOL Performed By: #### L501.080 #### [facility] Point of Care [address] [place] [address] CBC-COMPLETE BLOOD CNT Collected: 01/04/2018 Status: F Source: KINJAL NO DIFF 4:07 AM [facility] REPOSITORY TYPE CODE TESTS RESULT OUT OF [...] MPV 11.4 Performed By: #### L100.0500 #### [facility] [address] [place], [address] BASIC METABOLIC Collected: 01/04/2018 Status: F Source: STURGEON PROFILE (BMP) 4:07 AM [facility] REPOSITORY Order Comment: 'TROP' Serial specimen #1, [...] 6 Performed By: #### L500.2500, L501.4010 #### [facility] [address] [place], [address] TROPONIN-I Collected: 01/04/2018 Status: F Source: STURGEON 4:07 AM [facility] REPOSITORY Order Comment: 'TROP' Serial specimen #1, #2, #3, or #4: 2 TYPE CODE TESTS RESULT OUT OF RANGE REFERENCE UNITS LAB L501.4010 <0.06 ng/mL Normal < 0.02 TROPONIN-I Result Comment: TROPONIN-I EXPECTED VALUES <0.05 NEGATIVE 0.06 - 0.59 AT RISK OF AK > OR = 0.60 SUGGEST AK Performed By: #### L500.2500, L501.4010 #### [facility] [address] [place], [address] BEDSIDE GLUCOSE Collected: 01/04/2018 Status: F Source: STURGEON 3:53 AM [facility] REPOSITORY TYPE CODE TESTS RESULT OUT OF REFERENCE UNITS RANGE LAB L501.080 70-110 mg/dL High BEDSIDE GLU 121 Result Comment: MANAGEMENT OF PATIENT CARE PER NURSING PROTOCOL Performed By: #### L501.080 #### [facility] Point of Care [address] [place] [address]. [place] [address] TROPONIN-I Collected: 01/04/2018 Status: F Source: STURGEON 12:25 AM [facility] REPOSITORY Order Comment: 'TROP' Serial specimen #1, #2, #3, or #4: 1 TYPE CODE TESTS RESULT OUT OF RANGE REFERENCE UNITS LAB L501.4010 <0.06 ng/mL Normal < 0.02 TROPONIN-I Result Comment: TROPONIN-I EXPECTED VALUES <0.05 NEGATIVE 0.06 - 0.59 AT RISK OF AK > OR = 0.60 SUGGEST AK Performed By: #### L501.4010 #### [facility] [address] [place], [address] BEDSIDE GLUCOSE Collected: 01/03/2018 Status: F Source: KINJAL 10:20 PM [facility] REPOSITORY TYPE CODE TESTS RESULT OUT OF REFERENCE UNITS RANGE LAB L501.080 70-110 mg/dL High BEDSIDE GLU 158 Result Comment: MANAGEMENT OF PATIENT CARE PER NURSING PROTOCOL Performed By: #### L501.080 #### [facility] Point of Care [address] [place] [address] BLOOD GASES BY CPS Collected: 01/03/2018 Status: F Source: STURGEON 4:44 PM [facility] REPOSITORY TYPE CODE TESTS RESULT OUT OF [...] ISTAT 94 Performed By: #### L9000.0800 #### [facility] Point of Care [address] [place] [address] BEDSIDE GLUCOSE Collected: 01/03/2018 Status: F Source: KINJAL 4:17 PM [facility] REPOSITORY TYPE CODE TESTS RESULT OUT OF REFERENCE UNITS RANGE LAB L501.080 70-110 mg/dL High BEDSIDE GLU 153 Result Comment: MANAGEMENT OF PATIENT CARE PER NURSING PROTOCOL Performed By: #### L501.080 #### [facility] Point of Care [address] [place] [address] BEDSIDE GLUCOSE Collected: 01/03/2018 Status: F Source: KINJAL 11:03 AM [facility] REPOSITORY TYPE CODE TESTS RESULT OUT OF REFERENCE UNITS RANGE LAB L501.080 70-110 mg/dL High BEDSIDE GLU 208 Result Comment: MANAGEMENT OF PATIENT CARE PER NURSING PROTOCOL Performed By: #### L501.080 #### [facility] Point of Care [address] [place] [address] BEDSIDE GLUCOSE Collected: 01/03/2018 Status: F Source: KINJAL 7:09 AM [facility] REPOSITORY TYPE CODE TESTS RESULT OUT OF RANGE REFERENCE UNITS LAB L501.080 70-110 mg/dL Normal BEDSIDE GLU 101 Result Comment: MANAGEMENT OF PATIENT CARE PER NURSING PROTOCOL Performed By: #### L501.080 #### [facility] Point of Care [address] [place] [address] CBC-COMPLETE BLOOD CNT Collected: 01/03/2018 Status: F Source: KINJAL NO DIFF 6:34 AM [facility] REPOSITORY TYPE CODE TESTS RESULT OUT OF [...] MPV 11.0 Performed By: #### L100.0500 #### [facility] [address] [place], [address] BASIC METABOLIC Collected: 01/03/2018 Status: F Source: KINJAL PROFILE (BMP) 6:34 AM [facility] REPOSITORY TYPE CODE TESTS RESULT OUT OF [...] 5 Performed By: #### L500.2500, L501.5200 #### [facility] [address] [place], [place], [address] MAGNESIUM Collected: 01/03/2018 Status: F Source: KINJAL 6:34 AM [facility] REPOSITORY TYPE CODE TESTS RESULT OUT OF RANGE REFERENCE UNITS LAB L501.5200 1.6-2.6 mg/dL Normal MG 1.8 Performed By: #### L500.2500, L501.5200 #### [facility] [address] [place], [place], [address] BEDSIDE GLUCOSE Collected: 01/02/2018 Status: F Source: KINJAL 9:49 PM [facility] REPOSITORY TYPE CODE TESTS RESULT OUT OF REFERENCE UNITS RANGE LAB L501.080 70-110 mg/dL High BEDSIDE GLU 180 Result Comment: MANAGEMENT OF PATIENT CARE PER NURSING PROTOCOL Performed By: #### L501.080 #### [facility] Point of Care [address] [place] [address] URINE DRUG SCREEN Collected: 01/02/2018 Status: F Source: KINJAL (VISTA) 5:15 PM [facility] REPOSITORY TYPE CODE TESTS RESULT OUT OF [...] Normal NEGATIVE Performed By: #### L505.5000 #### [facility] [address] [place], [address] EMERGENCY DEPARTMENT Observed: 01/02/2018 Status: F Source: KINJAL SUMMARY 4:49 PM [facility] REPOSITORY [facility] Medical Records Department [address] [place] [address] Emergency Department Summary 01/02/18 0948 MR#: [id number] Acct: [id number] Name: TAMIA PANDA Rep #: [id number] : 1955 62 From: Bao Quintana MD [...] 2. Hypokalemia This note was generated with [employer] dictation software. It may contain incorrect words, [...] your Primary Care Provider. Call [facility] ([phone]) or report to the closest Emergency Room. Call 911 if necessary. 01/02/18 1649 <Electronically signed by Bao Quintana MD> Date Bao Quintana MD Cosigner Signature (If Indicated): Date CC: Bhupendra Oliveira MD BEDSIDE GLUCOSE Collected: 01/02/2018 Status: F Source: KINJAL 3:26 PM [facility] REPOSITORY TYPE CODE TESTS RESULT OUT OF RANGE REFERENCE UNITS LAB L501.080 70-110 mg/dL Normal BEDSIDE GLU 88 Result Comment: MANAGEMENT OF PATIENT CARE PER NURSING PROTOCOL Performed By: #### L501.080 #### [facility] Point [facility] Care [facility] [place] [address] URINALYSIS, COMPLETE Collected: 01/02/2018 Status: F Source: KINJAL 11:20 AM [facility] REPOSITORY Order Comment: How was Urine Obtained? [...] URINE SEEN Performed By: #### L400.0001 #### [facility] [address] [place], [address] BLOOD GASES BY CPS Collected: 01/02/2018 Status: F Source: STURGEON 10:37 AM [facility] REPOSITORY TYPE CODE TESTS RESULT OUT OF [...] ISTAT 98 Performed By: #### L9000.0800 #### [facility] Point of Care [address] [place] [address] CHEST 1 VIEW Observed: 01/02/2018 Status: F Source: KINJAL (PORTABLE) 9:46 AM [facility] REPOSITORY [facility] Imaging Services [address] [place] [address] Chest 1 View (Portable) MR#: [id number] Acct: [id number] Name: TAMIA PANDA Rep #: [id number] : 1955 F 62 From: Jelly Terrazas MD PCP: Bhupendra Oliveira MD Status: REG ER Study: Chest 1 View (Portable) Date of Exam: 01/02/18 Exam# [id number] Ordering Dr: Bao Quintana MD STUDY: X-RAY [...] CC: Bhupendra Oliveira MD; Bao Quintana MD Adult Health Clinical Nurse Specialist: Signed BRAIN/HEAD WITHOUT Observed: 01/02/2018 Status: F Source: KINJAL CONTRAST 9:46 AM [facility] REPOSITORY [facility] Imaging Services [address] [place] [address] Brain/Head without Contrast MR#: [id number] Acct: [id number] Name: TAMIA PANDA Rep #: [id number] : 1955 F 62 From: Jelly Terrazas MD PCP: Bhupendra Oliveira MD Status: REG ER Study: Brain/Head without Contrast Date of Exam: 01/02/18 Exam# [id number] Ordering Dr: Bao Quintana MD STUDY: CT [...] CC: Bhupendra Oliveira MD; Bao Quintana MD Adult Health Clinical Nurse Specialist: Signed CBC W/DIFF, AUTOMATED Collected: 01/02/2018 Status: F Source: STURGEON 9:43 AM [facility] REPOSITORY TYPE CODE TESTS RESULT OUT OF [...] Lymph 0.99 Performed By: #### L100.0100 #### [facility] [address] [place], [place], [address] BASIC METABOLIC Collected: 01/02/2018 Status: F Source: KINJAL PROFILE (BMP) 9:43 AM [facility] REPOSITORY Order Comment: 'TROP' Serial specimen #1, [...] 4 Performed By: #### L500.2500, L501.4010 #### [facility] [address] [place], [place], [address] TROPONIN-I Collected: 01/02/2018 Status: F Source: KINJAL 9:43 AM [facility] REPOSITORY Order Comment: 'TROP' Serial specimen #1, #2, #3, or #4: 1 TYPE CODE TESTS RESULT OUT OF RANGE REFERENCE UNITS LAB L501.4010 <0.06 ng/mL Normal < 0.02 TROPONIN-I Result Comment: TROPONIN-I EXPECTED VALUES <0.05 NEGATIVE 0.06 - 0.59 AT RISK OF AK > OR = 0.60 SUGGEST AK Performed By: #### L500.2500, L501.4010 #### [facility] [address] [place], [address] BEDSIDE GLUCOSE Collected: 01/02/2018 Status: F Source: STURGEON 9:39 AM [facility] REPOSITORY TYPE CODE TESTS RESULT OUT OF REFERENCE UNITS RANGE LAB L501.080 70-110 mg/dL High BEDSIDE GLU 148 Result Comment: MANAGEMENT OF PATIENT CARE PER NURSING PROTOCOL Performed By: #### L501.080 #### [facility] Point of Care [address] [place] [address] PROGRESS Observed: 01/01/2018 Status: COMPLETED Source: RELIANCE 1:25 PM [facility] REPOSITORY HNO ID: [id number] Author: Katie ([facility]) Podlogar Service: (none) Author Type: Nurse Practitioner [...] chronic obstructive pulmonary disease with respiratory failure ([facility]) - AF (paroxysmal atrial fibrillation) ([facility]) - Anxiety - Arthritis Seeing Dr Elliott - Cervical cancer ([facility]) hysterectomy - CHF (congestive heart failure) ([facility]) - Chronic back pain Seeing Dr. Wallace - Constipation - COPD (chronic obstructive pulmonary disease) ([facility]) - Coronary atherosclerosis of suquamish coronary artery Previously seeing Dr. Sosa - DDD (degenerative disc disease), lumbar - DM type 2 (diabetes mellitus, type 2) ([facility]) Seeing Dr. Foley for podiatry - DVT (deep venous thrombosis) ([facility]) Post op INA, BSO. - Dysphagia Seeing Dr. Beaulieu - Emphysema lung ([facility]) - Essential hypertension - Functional dyspepsia - Gastroparesis 2017 mild - GERD without esophagitis - Headache - History of colon polyps 11/28/2016 - Hyperlipidemia - Hypothyroidism - Incontinence Seeing Dr. Chapman - Morbid obesity ([facility]) - Muscle weakness - Nausea - PARESH on CPAP [facility], no longer using as of 10/2017, was not compliant - PE (pulmonary thromboembolism) ([facility]) Post op INA/BSO. 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 Social History Main Topics [...] in January 5. Coronary artery disease of suquam[place] artery of suqu[place] heart with stable angina pectoris (HCC) - [...] follow with gastro for endoscopy Katie Mckeon, [place].EXPERIMENTAL ROCKET SLED MECHANIC Prescription instructions reviewed with patient as applicable. Patient advised if symptoms do not improve or if symptoms worsen sooner, to contact their primary care physician. Potential red flag symptoms discussed with the patient. Reviewed appropriate action plan to take if red flag symptoms occur. Patient agreeable to treatment plan. IESHA Observed: 01/01/2018 Status: COMPLETED Source: RELIANCE 1:00 PM [facility] REPOSITORY [facility] TAMIA PANDA ([id number]) 1955 F Date Time Provider Department 01/01/18 1:00 PM KATIE MCKEON (LM) CIERA During your visit today, we recorded [...] chronic obstructive pulmonary disease with respiratory failure ([facility]) - AF (paroxysmal atrial fibrillation) ([facility]) - Anxiety - Arthritis Seeing Dr Elliott - Cervical cancer ([facility]) hysterectomy - CHF (congestive heart failure) ([facility]) - Chronic back pain Seeing Dr. Wallace - Constipation - COPD (chronic obstructive pulmonary disease) ([facility]) - Coronary atherosclerosis of suquamish coronary artery Previously seeing Dr. Sosa - DDD (degenerative disc disease), lumbar - DM type 2 (diabetes mellitus, type 2) ([facility]) Seeing Dr. Foley for podiatry - DVT (deep venous thrombosis) ([facility]) Post op INA, BSO. - Dysphagia Seeing Dr. Beaulieu - Emphysema lung ([facility]) - Essential hypertension - Functional dyspepsia - Gastroparesis 2017 mild - GERD without esophagitis - Headache - History of colon polyps 11/28/2016 - Hyperlipidemia - Hypothyroidism - Incontinence Seeing Dr. Chapman - Morbid obesity ([facility]) - Muscle weakness - Nausea - PARESH on CPAP [facility], no longer using as of 10/2017, was not compliant - PE (pulmonary thromboembolism) ([facility]) Post op INA/BSO. 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 Social History Main Topics [...] in January 5. Coronary artery disease of [place] artery of suqu[place] heart with stable angina pectoris (HCC) - [...] - follow with gastro for endoscopy Katie Podlogjuanito, MORTICIAN INVESTIGATOR.EXPERIMENTAL ROCKET SLED MECHANIC Prescription instructions reviewed with patient as applicable. Patient advised if symptoms do not improve or if symptoms worsen sooner, to contact their primary care physician. Potential red flag symptoms discussed with the patient. Reviewed appropriate action plan to take if red flag symptoms occur. Patient agreeable to treatment plan. Referring Provider: NANDA OLIVEIRA) [[id number]] Allergies As of Date: 01/01/2018 Noted Allergy [...] neuropathy, with long-term current use of insulin ([facility]) [E11.40, Z79.4] Other Visit Diagnoses:Hyperlipidemia, unspecified hyperlipidemia type [E78.5] Morbid obesity ([facility]) [E66.01] Essential hypertension [I10] Coronary artery disease of suqu[place] artery of suquamish heart with stable angina pectoris ([facility]) [I25.118] AF (paroxysmal atrial fibrillation) ([facility]) [I48.0] Chronic obstructive pulmonary disease, unspecified COPD type ([facility]) [J44.9] Chronic congestive heart failure, unspecified heart failure type ([facility]) [I50.9] Gastroparesis [K31.84] Prescriptions as of [...] [I25.10] INVALID FOR* Diabetes mellitus, type II ([facility]) [E11.9] INVALID FOR* Morbid obesity ([facility]) [E66.01] Hypothyroidism [E03.9] Anxiety [F41.9] Sleep apnea [G47.30] 02/14/2017 Essential hypertension [I10] 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 CHF (congestive heart failure) (HCC) [I50.9] BPPV (benign paroxysmal positional vertigo) [H8*INVALID FOR* RLS (restless legs syndrome) [G25.81] INVALID FOR* [place] deficiency concern: RE RLS [E61.1] INVALID FOR* Tubular adenoma [D36.9] INVALID FOR* Incontinence [R32] More... Gastroparesis [K31.84] INVALID FOR* Pre-op testing [Z01.818] INVALID FOR* More... Encounter Status:Closed by PODLOGARKATIE CNP on 01/01/18 PROGRESS Observed: 12/25/2017 Status: COMPLETED Source: RELIANCE 2:32 PM [facility] [place] REPOSITORY HNO ID: [id number] Author: Jefferson Connolly Service: (none) Author Type: Physician Type: Progress Notes Filed: 12/25/2017 2:39 PM Note Text: [facility] DEPARTMENT OF SURGERY Jefferson Connolly MD [address] [place] [address] NAME: Tamia Panda CLINIC NO: [id number] DATE OF SERVICE: December 25, 2017 This [...] (HCC) hysterectomy - CHF (congestive heart failure) ([facility]) - Chronic back pain Seeing Dr. Wallace - Constipation - COPD (chronic obstructive pulmonary disease) ([facility]) - Coronary atherosclerosis of suqu[place] coronary artery Previously seeing Dr. Sosa - DDD (degenerative disc disease), lumbar - DM type 2 (diabetes mellitus, type 2) ([facility]) Seeing Dr. Foley for podiatry - DVT (deep venous thrombosis) ([facility]) Post op INA, BSO. - Dysphagia Seeing Dr. Beaulieu - Emphysema lung ([facility]) - Essential hypertension - Functional dyspepsia - Gastroparesis 2016 mild - GERD without esophagitis - Headache - History of colon polyps 11/28/2016 - Hyperlipidemia - Hypothyroidism - Incontinence Seeing Dr. Chapman - Morbid obesity ([facility]) - Muscle weakness - Nausea - PARESH on CPAP [facility], no longer using as of 10/2017, was not compliant - PE (pulmonary thromboembolism) ([facility]) Post op INA/BSO. - Pneumonia - [...] MD PROGRESS Observed: 12/23/2017 Status: COMPLETED Source: RELIANCE 3:57 PM [facility] REPOSITORY HNO ID: [id number] Author: Nanda Rodriguez) Brian Service: (none) Author Type: Physician Type: Progress Notes Filed: 12/23/2017 3:57 PM Note Text: Reviewed. PROGRESS Observed: 12/23/2017 Status: COMPLETED Source: RELIANCE 10:05 AM [facility] REPOSITORY HNO ID: [id number] Author: Saad Allen) Larry Service: (none) Author [...] Silvestre RN December 23, 2017 10:06 AM Service Engine Repairer plan for next outreach: Will follow up one week Signature Saad Silvestre RN December 23, 2017 OSIELUTRROQUE Observed: 12/23/2017 Status: COMPLETED Source: RELIANCE 12:00 AM [facility] REPOSITORY Patient Outreach ([facility]) TAMIA PANDA ([id number]) 1955 F Date Time Provider Department 12/23/17 SAAD SILVESTRE (RN) CIERA During your visit [...] Silvestre RN December 23, 2017 10:06 AM Service Engine Repairer plan for next outreach: Will follow up [...] Spring - Fully Assessed Reason for Visit: Machine Baster Chronic Care [1567] Prescriptions as of 12/23/2017 Sig: SUCRALFATE 100 [...] II (HCC) [E11.9] INVALID FOR* Morbid obesity ([facility]) [E66.01] Hypothyroidism [E03.9] Anxiety [F41.9] Sleep apnea [G47.30] 02/14/2017 Essential hypertension [I10] 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 CHF (congestive heart failure) ([facility]) [I50.9] BPPV (benign paroxysmal positional vertigo) [H8*INVALID FOR* RLS (restless legs syndrome) [G25.81] INVALID FOR* [place] deficiency concern: RE RLS [E61.1] INVALID FOR* Tubular adenoma [D36.9] INVALID FOR* Incontinence [R32] More... Gastroparesis [K31.84] INVALID FOR* Pre-op testing [Z01.818] INVALID FOR* More... Encounter Status:Closed by SAAD SILVESTRE on 12/24/17 PROGRESS Observed: 12/18/2017 Status: COMPLETED Source: RELIANCE 3:30 PM CLINIC OTHER CAMPUS REPOSITORY HNO ID: [id number] Author: Donal Albright Service: (none) Author Type: [...] met Beta sudhakar for ASHD with prior AK or prior LVEF<40 (NQF 0070) - N/A [...] surgery. We will arrange diagnostic angiography at [facility]. Hopefully she will have disease which [...] diminished but symmetrical. Stress test done at [facility] in 01/05 reportedly showed normal wall motion at rest, but evidence of a moderate to large inferolateral scar with minimal anterior ischemia. This was a pharmacologic test, as was today's study, which showed evidence of a small basilar lateral fixed defect with moderate lateral ischemia. She did not undergo angiography following her abnormal stress test in 2015. Electronically Signed: Donal Albright MD December 18, 2017 3:30 PM CC: Nanda Oliveira MD CNOV Observed: 12/18/2017 Status: COMPLETED Source: RELIANCE 3:00 PM CLINIC OTHER CAMPUS REPOSITORY Office Visit (AGCARDWST) TAMIA PANDA ([id number]) 1955 F Date Time Provider Department 12/18/17 3:00 PM DONAL ALBRIGHT AGCARDWSCallie During your visit today, [...] met Beta sudhakar for ASHD with prior AK or prior LVEFANDlt;40 (NQF 0070) - N/A [...] surgery. We will arrange diagnostic angiography at [facility]. Hopefully she will have disease which [...] ALLERGIES: ALLERGIES Allergen Reactions - Adhesive Tape (Darienne* Intolerance Surgical tape leaves rash Irritates skin [...] diminished but symmetrical. Stress test done at [facility] in 01/05 reportedly showed normal wall motion at rest, but evidence of a ANDquot;moderate to large inferolateral scarANDquot; with minimal anterior ischemia. This was a pharmacologic test, as was today's study, which showed evidence of a small basilar lateral fixed defect with moderate lateral ischemia. She did not undergo angiography following her abnormal stress test in 2015. 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 CHF (congestive heart failure) ([facility]) [I50.9] BPPV (benign paroxysmal positional vertigo) [H8*INVALID FOR* RLS (restless legs syndrome) [G25.81] INVALID FOR* Iron deficiency concern: RE RLS [E61.1] INVALID FOR* Tubular adenoma [D36.9] INVALID FOR* Incontinence [R32] More... Gastroparesis [K31.84] INVALID FOR* Pre-op testing [Z01.818] INVALID FOR* More... Level of Service: SPORTS PE 35.00 (AG) [7903520] Follow-up and Disposition History Recorded Encounter Status:Closed by DONAL ALBRIGHT MD on 12/18/17 CNPN Observed: 12/18/2017 Status: COMPLETED Source: RELIANCE 12:00 AM CLINIC OTHER CAMPUS REPOSITORY Telephone (AGCARDWST) TAMIA PANDA ([id number]) 1955 F Date Time Provider Department 12/18/17 DONAL ALBRIGHT E AGCARDWST During your visit today, we recorded the following information about you: Dami Bravo, RN, RN 12/18/2017 4:52 PM Signed Spoke to Uma at [facility]. Patient will be set up for heart cath at [facility] next week. Demographics, OV notes, ECG, CXR, labs, and insurance cards faxed. Notified surgeon's office that cardiac clearance was not granted. Dami Bravo RN, RN 12/19/2017 10:20 AM Signed [place] [facility] [place] [facility] requesting cath report, op note, DC summary from stent placement in 2003. Faxed request for same records to [facility] @ [phone]. [facility] states that they will not proceed with cath without these records. Dami Bravo RN, RN 12/22/2017 10:22 AM Signed Received records from [facility] from 2011. Cath report portion forwarded to [facility] for cath. 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 CHF (congestive heart failure) ([facility]) [I50.9] BPPV (benign paroxysmal positional vertigo) [H8*INVALID FOR* RLS (restless legs syndrome) [G25.81] INVALID FOR* Iron deficiency concern: RE RLS [E61.1] INVALID FOR* Tubular adenoma [D36.9] INVALID FOR* Incontinence [R32] More... Gastroparesis [K31.84] INVALID FOR* Pre-op testing [Z01.818] INVALID FOR* More... Encounter Status:Closed by DAMI BRAVO on 12/18/17 STRESS REPORT Observed: 12/17/2017 Status: F Source: STURGEON 5:06 PM [facility] REPOSITORY [facility] Cardiovascular Services [address] [place] [address] MR#: [id number] Acct: [id number] Name: TAMIA PANDA Rep #: [id number] : 1955 62 From: Bart Blas MD [...] MD Date Dictated: 12/17/171700 Date Transcribed: 12/17/171700 Adult Health Clinical Nurse Specialist: [place] Signed PROGRESS Observed: 12/16/2017 Status: COMPLETED Source: RELIANCE 11:12 AM CLINIC OTHER CAMPUS REPOSITORY HNO ID: [id number] Author: Donal Albright Service: (none) Author Type: [...] met Beta sudhakar for ASHD with prior AK or prior LVEF<40 (NQF 0070) - N/A [...] the request of Dr. Cline, in the [facility]. She will be undergoing pyloroplasty for gastroparesis. [...] failure (HCC) - AF (paroxysmal atrial fibrillation) ([facility]) - Anxiety - Arthritis Seeing Dr Elliott - Cervical cancer ([facility]) hysterectomy - CHF (congestive heart failure) ([facility]) - Chronic back pain Seeing Dr. Wallace - Constipation - COPD (chronic obstructive pulmonary disease) ([facility]) - Coronary atherosclerosis of suquamish coronary artery Previously seeing Dr. Sosa - DDD (degenerative disc disease), lumbar - DM type 2 (diabetes mellitus, type 2) ([facility]) Seeing Dr. Foley for podiatry - DVT (deep venous thrombosis) ([facility]) Post op INA, BSO. - Dysphagia Seeing Dr. Beaulieu - Emphysema lung ([facility]) - Essential hypertension - Functional dyspepsia - Gastroparesis 2017 mild - GERD without esophagitis - Headache - History of colon polyps 11/28/2016 - Hyperlipidemia - Hypothyroidism - Incontinence Seeing Dr. Chapman - Morbid obesity ([facility]) - Muscle weakness - Nausea - PARESH on CPAP [facility], no longer using as of 10/2017, was not compliant - PE (pulmonary thromboembolism) ([facility]) Post op INA/BSO. - Pneumonia - [...] 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 [employer]. 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 Social History Main Topics [...] MD CNOV Observed: 12/16/2017 Status: COMPLETED Source: RELIANCE 10:30 AM CLINIC OTHER CAMPUS REPOSITORY Office Visit (AGCARDWST) TAMIA PANDA ([id number]) 1955 F Date Time Provider Department 12/16/17 10:30 AM DONAL ALBRIGHT AGCARDWST During your visit today, [...] met Beta sudhakar for ASHD with prior AK or prior LVEFANDlt;40 (NQF 0070) - N/A [...] the request of Dr. Cline, in the [facility]. She will be undergoing pyloroplasty for gastroparesis. [...] capsule TAKE 1 CAPSULE BY MOUTH DAILY CLAUIDA-KYLE 8.6 mg tab TAKE 1 TABLET BY [...] failure (HCC) - AF (paroxysmal atrial fibrillation) ([facility]) - Anxiety - Arthritis Seeing Dr Elliott - Cervical cancer ([facility]) hysterectomy - CHF (congestive heart failure) ([facility]) - Chronic back pain Seeing Dr. Wallace - Constipation - COPD (chronic obstructive pulmonary disease) ([facility]) - Coronary atherosclerosis of suquamish coronary artery Previously seeing Dr. Sosa - DDD (degenerative disc disease), lumbar - DM type 2 (diabetes mellitus, type 2) ([facility]) Seeing Dr. Foley for podiatry - DVT (deep venous thrombosis) ([facility]) Post op INA, BSO. - Dysphagia Seeing Dr. Beaulieu - Emphysema lung ([facility]) - Essential hypertension - Functional dyspepsia - Gastroparesis 2017 mild - GERD without esophagitis - Headache - History of colon polyps 11/28/2016 - Hyperlipidemia - Hypothyroidism - Incontinence Seeing Dr. Chapman - Morbid obesity ([facility]) - Muscle weakness - Nausea - PARESH on CPAP [facility], no longer using as of 10/2017, was not compliant - PE (pulmonary thromboembolism) ([facility]) Post op INA/BSO. 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 Social History Main Topics [...] 16, 2017 11:12 AM CC: MD Donal Folyd MD 12/16/2017 11:13 AM Signed LIFESTYLE CHANGE A healthy lifestyle is the most important component of your overall treatment plan. 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 EAT A WHOLE FOOD, PLANT BASED [...] programs in your area. Referring Provider: NANDA OLVIEIRA) [[id number]] Allergies As of Date: 12/16/2017 Noted Allergy [...] Unknown Date Reviewed: 12/16/2017 Reviewed by: Florence Sim) Halina - Fully Assessed Reason for Visit: Consult [502] Primary Visit Diagnosis:Preop cardiovascular exam [Z01.810] Other Visit Diagnoses:ASHD (arteriosclerotic heart disease) [I25.10] Hypertension, essential [I10] Order(s):NM CARDIAC PERF STRESS/PHARM [[id number]] Order #: [id number] FUTURE [] regadenoson (LEXISCAN) 0.4 mg/5 mL syrgInject 5 mL intravenously one time only for 1 dose. 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 EAT A WHOLE FOOD, PLANT BASED [...] 12/18/17 PROGRESS Observed: 12/15/2017 Status: COMPLETED Source: RELIANCE 3:40 PM [facility] REPOSITORY HNO ID: [id number] Author: Nafisa HarrisonRn) NINA Subramanian Service: (none) Author Type: Registered Nurse Type: Progress Notes Filed: 12/15/2017 3:41 PM Note Text: . PROGRESS Observed: 12/15/2017 Status: COMPLETED Source: RELIANCE 3:13 PM [facility] REPOSITORY HNO ID: [id number] Author: Tejal Armendariz RN Service: (none) Author Type: (none) Type: Progress Notes Filed: 12/15/2017 3:50 PM Note Text: ANESTHESIA PRE-OPERATIVE ASSESSMENT (PACE) SERVICE DATE: 12/15/2017 SERVICE TIME: 1513 ASSESSMENT AND PLAN: Tamia Panda is a 62 year old female scheduled for per oral endoscopic pyloromyotomy per Informed Consent in [facility] on 12-19-17. PMH: gastroparesis - on carafate, [...] of hemidiaphragms No acute infiltrate or effusion Adult Health Clinical Nurse Specialist: ALLEGRA ? Transcribe Date/Time: Oct 14 [...] #: CNOV Observed: 12/15/2017 Status: COMPLETED Source: RELIANCE 2:30 PM [facility] REPOSITORY Office Visit (PSSCMN) TAMIA PANDA ([id number]) 1955 F Date Time Provider Department 12/15/17 2:30 PM [facility] PSSCMN During your visit today, we [...] to see cards pre-op 12-16-17 ordered by zofia on lopressor, cartia, imdur, lasix scanned stress [...] BMI 40.42 kg/(m2) Vital signs completed by: ZOFIA Weight acquired: per HANDamp;P. Height acquired: per [...] of hemidiaphragms No acute infiltrate or effusion Adult Health Clinical Nurse Specialist: ALLEGRA ? 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 CHF (congestive heart failure) ([facility]) [I50.9] BPPV (benign paroxysmal positional vertigo) [...] HISTORY PHYSICAL Observed: 12/15/2017 Status: COMPLETED Source: RELIANCE 12:56 PM [facility] REPOSITORY [facility] ID: [id number] Author: Lori Cline Service: (none) Author Type: [...] Here alone in wheelchair using oxygen, from [place]. Walks around her small apt. Uses can [...] chronic obstructive pulmonary disease with respiratory failure ([facility]) - AF (paroxysmal atrial fibrillation) ([facility]) - Anxiety - Arthritis Seeing Dr Elliott - Cervical cancer ([facility]) hysterectomy - CHF (congestive heart failure) ([facility]) - Chronic back pain Seeing Dr. Wallace - Constipation - COPD (chronic obstructive pulmonary disease) ([facility]) - Coronary atherosclerosis of suquamish coronary artery Previously seeing Dr. Sosa - DDD (degenerative disc disease), lumbar - DM type 2 (diabetes mellitus, type 2) ([facility]) Seeing Dr. Foley for podiatry - DVT (deep venous thrombosis) ([facility]) Post op INA, BSO. - Dysphagia Seeing Dr. Beaulieu - Emphysema lung ([facility]) - Essential hypertension - Functional dyspepsia - Gastroparesis 2017 mild - GERD without esophagitis - Headache - History of colon polyps 11/28/2016 - Hyperlipidemia - Hypothyroidism - Incontinence Seeing Dr. Chapman - Morbid obesity ([facility]) - Muscle weakness - Nausea - PARESH on CPAP [facility], no longer using as of 10/2017, was not compliant - PE (pulmonary thromboembolism) ([facility]) Post op INA/BSO. 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 Social History Main Topics [...] Sleep Apnea (without Rx) Cardiovascular: 2003, last [facility], Had PCI Stent. Does have exertional chest pressure at times. Occ takes NGN.Will go aaway with rest or up to 2 NGN. Saw a online producer in [facility]. Her online producer and that was the last time she saw a online producer ~ 3-4 months ago. 2015 Stress test Lexiscan : Moderate to large inflateral ischemia. + CHF, preserved EF, A fib on Eliquis. Last admission 3 years ago. GI: Gastroparesis, dysphagia to food, pills : No history of UTI in past 6 weeks. No history of renal failure. Not currently on or requiring dialysis. No history of symptoms or problems. 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 [facility] ?[address] ? [place] [address] ?Test Date: ? ? 2017 Pat Name: ? ? ?TAMIA PANDA ?Department: ? ? Patient ID: ? ?[id number] ? Room: ? Gender: ?Female ?Bar Porter: ? ? : ? 1955 ?Requested By: ? Order Number: ?[id number] ?Reading : ? ?Gayathri Jacome ?Interpretive Statements All lung [...] PM - Interface, Trans In Results ? [facility] ?[address] ? [place] [address] ?Test Date: ? ? 2016-09-11 Pat Name: ? ? ?TAMIA PANDA ?Department: ? ? Patient ID: ? ?[id number] ? Room: ? Gender: ?Female ?Bar Porter: ? ? : ? 1955 ?Requested By: ? Order Number: ?[id number] ?Reading : ? ?Gayathri Jacome ?Interpretive Statements Extrapolated volume [...] patient has PARESH ENDOCRINE: DIABETES: - Initiate Guidelines for perioperative diabetes management. Check finger [...] Not Required Encounter Date: 12/18/2017 ? ? Vocational Trainer: Donal Albright (Physician) ? Expand All Collapse [...] met Beta sudhakar for ASHD with prior AK or prior LVEF<40 (NQF 0070) - N/A [...] surgery. We will arrange diagnostic angiography at [facility]. Hopefully she will have disease which [...] He said he spoke with RN at [facility] to alert Dr. Connolly that surgery was cancelled due to abnormal stress and planned LHC next week. Dr. Connolly's office is aware and will cancel surgery. 4:36 PM December 18, 2017 CNOV Observed: 12/15/2017 Status: COMPLETED Source: RELIANCE 12:45 PM [facility] REPOSITORY Office Visit (IMPAMN) TAMIA PANDA ([id number]) 1955 F Date Time Provider Department 12/15/17 12:45 PM LORI CLINEAMN During your visit today, we recorded the following information about you: Temperature Pulse Blood pressure Weight 98.2 degrees 70/minute 106/60 100.2 kg Height 1.575 m Lori Cline MD 12/15/2017 1:42 PM Signed Tamia aPnda is a 62 year old female here [...] failure (HCC) - AF (paroxysmal atrial fibrillation) ([facility]) - Anxiety - Arthritis Seeing Dr Elliott - Cervical cancer (HCC) hysterectomy - CHF (congestive heart failure) ([facility]) - Chronic back pain Seeing Dr. Wallace - Constipation - COPD (chronic obstructive pulmonary disease) ([facility]) - Coronary atherosclerosis of suquamish coronary artery Previously seeing Dr. Sosa - DDD (degenerative disc disease), lumbar - DM type 2 (diabetes mellitus, type 2) ([facility]) Seeing Dr. Foley for podiatry - DVT (deep venous thrombosis) ([facility]) Post op INA, BSO. - Dysphagia Seeing Dr. Beaulieu - Emphysema lung ([facility]) - Essential hypertension - Functional dyspepsia - Gastroparesis 2017 mild - GERD without esophagitis - Headache - History of colon polyps 11/28/2016 - Hyperlipidemia - Hypothyroidism - Incontinence Seeing Dr. Chapman - Morbid obesity ([facility]) - Muscle weakness - Nausea - PARESH on CPAP [facility], no longer using as of 10/2017, was not compliant - PE (pulmonary thromboembolism) ([facility]) Post op INA/BSO. 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 Social History Main Topics [...] 200 Strip Rfl: 9 lancets (ONE TOUCH KENNY) 33 gauge misc Use as directed to [...] Sleep Apnea (without Rx) Cardiovascular: 2003, last [facility], Had PCI Stent. Does have exertional chest pressure at times. Occ takes NGN.Will go aaway with rest or up to 2 NGN. Saw a online producer in [facility]. Her online producer and that was the last time she saw a online producer ~ 3-4 months ago. 2016 Stress test Lexiscan : ANDquot;Moderate to large inflateral ischemia.ANDquot; + CHF, preserved EF, A fib on Eliquis. Last admission 3 years ago. GI: Gastroparesis, dysphagia to food, pills : No history of UTI in past 6 weeks. No history of renal failure. Not currently on or requiring dialysis. No history of symptoms or problems. 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 [facility] ?[address] ? [place] [address] ?Test Date: ? ? 2017 Pat Name: ? ? ?TAMIA PANDA ?Department: ? ? Patient ID: ? ?[id number] ? Room: ? Gender: ?Female ?Bar Porter: ? ? : ? 1955 ?Requested By: ? Order Number: ?[id number] ?Reading MD: ? ?Gayathri Jacome ?Interpretive Statements [...] PM - Interface, Trans In Results ? [facility] ?[address] ? [place] [address] ?Test Date: ? ? 2016-09-11 Pat Name: ? ? ?TAMIA PANDA ?Department: ? ? Patient ID: ? ?[id number] ? Room: ? Gender: ?Female ?Bar Porter: ? ? : ? 1955 ?Requested By: ? Order Number: ?[id number] ?Reading MD: ? ?Gayathri Jacome ?Interpretive Statements [...] patient has PARESH ENDOCRINE: DIABETES: - Initiate Guidelines for perioperative diabetes management. Check finger [...] Not Required Encounter Date: 12/18/2017 ? ? Vocational Trainer: Donal Albright (Physician) ? Expand All Collapse [...] met Beta sudhakar for ASHD with prior AK or prior LVEFANDlt;40 (NQF 0070) - N/A [...] surgery. We will arrange diagnostic angiography at [facility]. Hopefully she will have disease which [...] He said he spoke with RN at [facility] to alert Dr. Connolly that surgery was cancelled due to abnormal stress and planned LHC next week. Dr. Connolly's office is aware and will cancel surgery. 4:36 PM December 18, 2017 Lori Cline MD 12/15/2017 1:49 PM Addendum [facility] Patient Instructions for Surgery FOOD INSTRUCTIONS: [...] please do not hesitate to contact the [facility] at [phone] or [phone], ext [phone]. 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, unspecified vessel or lesion type ([facility]) [I25.118] Gastroparesis [K31.84] Obstructive sleep apnea [G47.33] Morbid obesity ([facility]) [E66.01] COPD with exacerbation ([facility]) [J44.1] Order(s):CONSULT TO CARDIOLOGY [9004] Order #: [id number]: 1 Prescriptions as of 12/15/2017 Sig: SUCRALFATE [...] [I25.10] INVALID FOR* Diabetes mellitus, type II ([facility]) [E11.9] INVALID FOR* Morbid obesity ([facility]) [E66.01] Hypothyroidism [E03.9] Anxiety [F41.9] Sleep apnea [G47.30] 02/14/2017 Essential hypertension [I10] 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 CHF (congestive heart failure) (HCC) [I50.9] BPPV (benign paroxysmal positional vertigo) [H8*INVALID FOR* RLS (restless legs syndrome) [G25.81] INVALID FOR* Iron deficiency concern: RE RLS [E61.1] INVALID FOR* Tubular adenoma [D36.9] INVALID FOR* Incontinence [R32] More... Gastroparesis [K31.84] INVALID FOR* Pre-op testing [Z01.818] INVALID FOR* More... Other instructions from your clinician: [facility] Patient Instructions for Surgery FOOD INSTRUCTIONS: [...] please do not hesitate to contact the [facility] center at [phone] or [phone], ext [phone]. Signature: Lori Cline MD Date: December 15, [...] Please fax 30 day compliance download to [phone]. Dx: G47.33, G47.39. DME: [facility] Disc: Discontinued by Patient fluticasone-salmeterol (ADVAIR DISKU* [...] 12/15/17 PROGRESS Observed: 12/15/2017 Status: COMPLETED Source: RELIANCE 12:33 PM [facility] REPOSITORY O ID: [id number] Author: Lori Cline Service: (none) Author Type: Physician Type: Progress Notes Filed: 12/15/2017 1:42 PM Note Text: Tamia Panda is a 62 year old female here today for visit in [facility] Referring Surgeon: Dr. Connolly Date of Surgery: [...] Zulma JULIAN Observed: 12/15/2017 Status: COMPLETED Source: RELIANCE 11:40 AM [facility] REPOSITORY Office Visit (GENBMI) HENRYTAMIA ([id number]) 1955 F Date Time Provider Department 12/15/17 11:40 AM JEFFERSON CONNOLLY During your visit today, we recorded the following information about you: Pulse Blood pressure Weight Height 83/minute 103/62 100.2 kg 1.575 m Shirley Ovalle Neli 12/15/2017 10:29 AM Signed Body mass index is 40.42 kg/(m2). Jefferson Connolly MD 12/25/2017 2:39 PM Signed [facility] DEPARTMENT OF SURGERY Jefferson Connolly MD [address] [place] [address] NAME: Tamia Panda CLINIC NO: [id number] DATE OF SERVICE: December 25, 2017 This [...] chronic obstructive pulmonary disease with respiratory failure ([facility]) - AF (paroxysmal atrial fibrillation) ([facility]) - Anxiety - Arthritis Seeing Dr Elliott - Cervical cancer ([facility]) hysterectomy - CHF (congestive heart failure) ([facility]) - Chronic back pain Seeing Dr. Wallace - Constipation - COPD (chronic obstructive pulmonary disease) ([facility]) - Coronary atherosclerosis of [place]quam[place] coronary artery Previously seeing Dr. Sosa - DDD (degenerative disc disease), lumbar - DM type 2 (diabetes mellitus, type 2) ([facility]) Seeing Dr. Foley for podiatry - DVT (deep venous thrombosis) ([facility]) Post op INA, BSO. - Dysphagia Seeing Dr. Beaulieu - Emphysema lung ([facility]) - Essential hypertension - Functional dyspepsia - Gastroparesis 2017 mild - GERD without esophagitis - Headache - History of colon polyps 11/28/2016 - Hyperlipidemia - Hypothyroidism - Incontinence Seeing Dr. Chapman - Morbid obesity ([facility]) - Muscle weakness - Nausea - PARESH on CPAP [facility], no longer using as of 10/2017, was not compliant - PE (pulmonary thromboembolism) ([facility]) Post op INA/BSO. - Pneumonia - [...] Jefferson Connolly MD Referring Provider: JEFFERSON CONNOLLY [[id number]] Allergies As of Date: 12/15/2017 Noted Allergy [...] [I25.10] INVALID FOR* Diabetes mellitus, type II ([facility]) [E11.9] INVALID FOR* Morbid obesity ([facility]) [E66.01] Hypothyroidism [E03.9] Anxiety [F41.9] Sleep apnea [G47.30] 02/14/2017 Essential hypertension [I10] 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 CHF (congestive heart failure) ([facility]) [I50.9] BPPV (benign paroxysmal positional vertigo) [H8*INVALID FOR* RLS (restless legs syndrome) [G25.81] INVALID FOR* [place] deficiency concern: RE RLS [E61.1] INVALID FOR* Tubular adenoma [D36.9] INVALID FOR* Incontinence [R32] More... Gastroparesis [K31.84] INVALID FOR* Pre-op testing [Z01.818] INVALID FOR* More... Visit Notes: >> Shirley Ovalle Ma Mon Dec 15, 2017 10:26 AM Status: [...] 12/25/17 CNNURSE Observed: 12/15/2017 Status: COMPLETED Source: RELIANCE 11:00 AM [facility] REPOSITORY Nurse Visit (GENBMI) TAMIA PANDA ([id number]) 1955 F Date Time Provider Department 12/15/17 11:00 AM NURSE BMI GENBMI During your visit today, we recorded the following information about you: Nafisa Subramanian RN, RN 12/15/2017 3:32 PM Signed AMBULATORY [...] PM Signed . Referring Provider: JEFFERSON CONNOLLY [[id number]] Allergies As of Date: 12/15/2017 Noted Allergy [...] [I25.10] INVALID FOR* Diabetes mellitus, type II ([facility]) [E11.9] INVALID FOR* Morbid obesity ([facility]) [E66.01] Hypothyroidism [E03.9] Anxiety [F41.9] Sleep apnea [G47.30] 02/14/2017 Essential hypertension [I10] 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 CHF (congestive heart failure) ([facility]) [I50.9] BPPV (benign paroxysmal positional vertigo) [H8*INVALID FOR* RLS (restless legs syndrome) [G25.81] INVALID FOR* [place] deficiency concern: RE RLS [E61.1] INVALID FOR* Tubular adenoma [D36.9] INVALID FOR* Incontinence [R32] More... Gastroparesis [K31.84] INVALID FOR* Pre-op testing [Z01.818] INVALID FOR* More... Visit Notes: >> Nafisa (Nina) NINA Subramanian [facility] Dec 15, 2017 3:27 PM Status: Signed AMBULATORY [...] BLOOD TYPE Collected: 12/15/2017 Status: F Source: RELIANCE 9:40 AM [facility] REPOSITORY TYPE CODE TESTS RESULT OUT OF REFERENCE UNITS RANGE LAB %ABR A ABO/RH(D) POSITIVE Performed By: #### CONABO #### [facility] [address] [address] PROTIME Collected: 12/15/2017 Status: F Source: RELIANCE 9:25 AM [facility] [place] REPOSITORY TYPE CODE TESTS RESULT OUT OF RANGE REFERENCE UNITS LAB PSEC 9.7-13.0 sec PT Sec 10.4 LAB INR 0.9-1.3 PT INR 1.0 Result Comment: Vitamin K Antagonist (VKA) Therapeutic Range: INR 2 to 3 (Target INR of 2.5) Note: For patients treated with VKA drugs, such as warfarin, the [place] [employer] Physicians 2012 Guideline recommends [...] Chest 2012, 141:7S-47S Marcial RA, et al. [facility] 2017, 70: 252-289 Performed By: #### PT, PTT, CBCDIF, CMP #### [facility] [address], [place] [address] APTT Collected: 12/15/2017 Status: F Source: RELIANCE 9:25 AM [facility] REPOSITORY TYPE CODE TESTS RESULT OUT OF [...] laboratory APTT reagent in use throughout the [facility]. Performed By: #### PT, PTT, CBCDIF, CMP #### [employer] [address] [place], [place] [address] CBC AND DIFFERENTIAL Collected: 12/15/2017 Status: F Source: RELIANCE 9:25 AM [facility] REPOSITORY TYPE CODE TESTS RESULT OUT OF [...] k/uL Abs Lymph 1.15 LAB AMONO % Pepin% 11.7 LAB AAMONO <0.87 k/uL Abs Pepin 0.77 LAB AEOS % Eosin% 4.5 LAB AAEOS <0.46 k/uL Abs Eosin 0.30 LAB ABASO % Baso% 0.5 LAB AABASO <0.11 k/uL Abs Baso 0.03 LAB AUNRBC 0 /100 WBC NRBCs 0.0 LAB ABNRBC <0.01 k/uL Absolute nRBC <0.01 LAB DTYP DTYPE Auto Diff Performed By: #### PT, PTT, CBCDIF, CMP #### [facility] [address] [place] [id number] COMP METABOLIC PANEL Collected: 12/15/2017 Status: F Source: RELIANCE 9:25 AM [facility] REPOSITORY TYPE CODE TESTS RESULT OUT OF REFERENCE UNITS RANGE LAB TP 6.3-8.0 g/dL Protein, Total 7.0 LAB ALB 3.9-4.9 g/dL Albumin 4.1 LAB CA 8.5-10.2 mg/dL Calcium, Total 9.3 LAB TBIL 0.2-1.3 mg/dL Bilirubin, Total 0.5 LAB ALKP 32-117 U/L Alkaline Phosphatase 38 LAB AST 13-35 U/L AST 14 LAB GLU 74-99 mg/dL Glucose High 110 Result Comment: The [place] Diabetes Association (ADA) provides guidance for cutoff [...] Standards of Medical Care in Diabetes 2016, [place] Diabetes Association. Diabetes Care. 2016.39(Suppl 1). LAB [...] By: #### PT, PTT, CBCDIF, CMP #### [facility] [address] [place] [id number] TYPE AND SCR (30D) Collected: 12/15/2017 Status: F Source: RELIANCE 9:25 AM [facility] REPOSITORY TYPE CODE TESTS RESULT OUT OF REFERENCE UNITS RANGE LAB %ABR A ABO/RH(D) POSITIVE LAB % Antibody NEG Screen Performed By: #### [id number] #### [employer] [facility] [address] [place], [place] [address] PROGRESS Observed: 12/12/2017 Status: COMPLETED Source: RELIANCE 12:00 PM [facility] REPOSITORY HNO ID: [id number] Author: Saad Allen) Larry Service: (none) Author Type: Registered Nurse Type: Progress Notes Filed: 12/12/2017 12:30 PM Note Text: TC to patient, informed [facility] doesn't carry oxygen supplies and [place] cannot get the smaller Indogen concentrator. Asked pt to call [facility] CM and ask her if there is another company we can contact to get the smaller concentrator. If CM has questions pt should give her PCC's number, verbalized agreement. Saad Silvestre RN December 12, 2017 12:30 PM TC to Jenny at [facility] asked about Indogen concentrators they carry. Jenny verified they only carry the portable concentrator that weighs about 5 lbs. They are not able to special order the 2.8 lb concentrator that is advertised on tv. Saad Silvestre RN December 12, 2017 12:14 PM TC to Yancy at [facility], states they do not carry any oxygen products. Saad Silvestre RN December 12, 2017 11:55 PM PROGRESS Observed: 12/12/2017 Status: COMPLETED Source: RELIANCE 11:50 AM [facility] REPOSITORY HNO ID: [id number] Author: Saad Silvestre Service: (none) Author Type: Registered Nurse Type: Progress Notes Filed: 12/12/2017 12:00 PM Note Text: PRIMARY CARE COORDINATION IN OFFICE VISIT WITH PCP LATE ENTRY FOR 12/11/17 Patient has been identified by name and date of . PCP Assessment/Plan: Reviewed PCP plan with patient using Teach Back Discussed pt unable to get 2 lb Indogen oxygen machine from [facility], pt requesting PCC call [facility] and see if she can get smaller Indogen machine from them. PCC Plan of Care: Patient concerns: Pt having difficulty carrying portable oxygen tank because it is too heavy Next Office Visit: 12/11/2017 Plan For Next Call: One day Saad Silvestre RN December 12, 2017 LIPID PANEL, BASIC Collected: 12/11/2017 Status: F Source: RELIANCE 3:53 PM [facility] REPOSITORY TYPE CODE TESTS RESULT OUT OF [...] Desk Reference: National Heart, Lung, and Blood [place]. National Institutes of Health. 2001: NIH Publication No. 01-3305. 2. An International Atherosclerosis Society position paper: global recommendations for the management of dyslipidemia: executive summary, Atherosclerosis. 2014: 232(2):410-413. Performed By: #### LIPB, HBA1C #### [facility] [address] [place], [place] [address] HEMOGLOBIN A1C Collected: 12/11/2017 Status: F Source: RELIANCE 3:53 PM [facility] REPOSITORY TYPE CODE TESTS RESULT OUT OF REFERENCE UNITS RANGE LAB HGBA1C 4.3-5.6 % High Hemoglobin A1c 6.3 LAB HBA0 mg/dL Est. Average Glucose 134 Result Comment: eAG: (Estimated average glucose) is a calculated value from HgbA1c and is community health program representative of the average blood glucose level in the last 2-3 month period. Performed By: #### LIPB, HBA1C #### [facility] [address] [place], [place] [address] PROGRESS Observed: 12/11/2017 Status: COMPLETED Source: RELIANCE 3:16 PM [facility] [place] REPOSITORY HNO ID: [id number] Author: Chris (Graphic Coordinator) NAPOLEON Oconnell.EXPERIMENTAL ROCKET SLED MECHANIC Service: (none) Author Type: Nurse Practitioner Type: [...] she spoke with the home care company [employer] and they told her that the home O2 that she was hoping to have is not what they carry. She was hoping that they had the 2 lb version, but the one that they have is 5 lb and needs to be charged often. She is wondering if Saad Silvestre can help to look into seeing if [facility] can help with this. PAST MEDICAL HISTORY Diagnosis Date - Acute chronic obstructive pulmonary disease with respiratory failure (HCC) - AF (paroxysmal atrial fibrillation) ([facility]) - Anxiety - Arthritis Seeing Dr Elliott - Cervical cancer ([facility]) hysterectomy - CHF (congestive heart failure) ([facility]) - Chronic back pain Seeing Dr. Wallace - Constipation - COPD (chronic obstructive pulmonary disease) ([facility]) - Coronary atherosclerosis of suquam[place] coronary artery Previously seeing Dr. Sosa - DDD (degenerative disc disease), lumbar - DM type 2 (diabetes mellitus, type 2) ([facility]) Seeing Dr. Foley for podiatry - DVT (deep venous thrombosis) ([facility]) Post op INA, BSO. - Dysphagia Seeing Dr. Beaulieu - Emphysema lung ([facility]) - Essential hypertension - Functional dyspepsia - Gastroparesis 2017 mild - GERD without esophagitis - Headache - History of colon polyps 11/28/2016 - Hyperlipidemia - Hypothyroidism - Incontinence Seeing Dr. Chapman - Morbid obesity ([facility]) - Muscle weakness - Nausea - PARESH on CPAP [facility], no longer using as of 10/2017, was not compliant - PE (pulmonary thromboembolism) ([facility]) Post op INA/BSO. - Pneumonia - [...] Please fax 30 day compliance download to [phone]. Dx: G47.33, G47.39. DME: 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 Social History Main Topics [...] APRN.CNP CNOV Observed: 12/11/2017 Status: COMPLETED Source: RELIANCE 3:00 PM [facility] REPOSITORY [facility] TAIMA PANDA ([id number]) 1955 F Date Time Provider Department 12/11/17 3:00 PM [facility] ([facility] During your visit today, we recorded the [...] she spoke with the home care company [employer] and they told her that the home O2 that she was hoping to have is not what they carry. She was hoping that they had the 2 lb version, but the one that they have is 5 lb and needs to be charged often. She is wondering if Saad Silvestre can help to look into seeing if [facility] can help with this. PAST MEDICAL HISTORY Diagnosis Date - Acute chronic obstructive pulmonary disease with respiratory failure ([facility]) - AF (paroxysmal atrial fibrillation) ([facility]) - Anxiety - Arthritis Seeing Dr Elliott - Cervical cancer ([facility]) hysterectomy - CHF (congestive heart failure) ([facility]) - Chronic back pain Seeing Dr. Wallace - Constipation - COPD (chronic obstructive pulmonary disease) ([facility]) - Coronary atherosclerosis of [place]quam[place] coronary artery Previously seeing Dr. Sosa - DDD (degenerative disc disease), lumbar - DM type 2 (diabetes mellitus, type 2) ([facility]) Seeing Dr. Foley for podiatry - DVT (deep venous thrombosis) ([facility]) Post op IAN, BSO. - Dysphagia Seeing Dr. Beaulieu - Emphysema lung ([facility]) - Essential hypertension - Functional dyspepsia - Gastroparesis 2017 mild - GERD without esophagitis - Headache - History of colon polyps 11/28/2016 - Hyperlipidemia - Hypothyroidism - Incontinence Seeing Dr. Chapman - Morbid obesity ([facility]) - Muscle weakness - Nausea - PARESH on CPAP [facility], no longer using as of 10/2017, was not compliant - PE (pulmonary thromboembolism) ([facility]) Post op INA/BSO. - Pneumonia - [...] Please fax 30 day compliance download to [phone]. Dx: G47.33, G47.39. DME: 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 Social History Main Topics [...] Silvestre regarding home O2 request. 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 Referring Provider: CHRIS OCONNELL ([facility]) [[id number]] Allergies As of Date: 12/11/2017 Noted Allergy [...] Unknown Date Reviewed: 12/11/2017 Reviewed by: Deysi Zaragoza Ma - Fully Assessed Reason for Visit: [...] UNIT/ML (3 ML) SUBCUTANEOUS PEN >> Deysi Haumesser Ma 12/11/2017 3:11 PM >> HAUMESSER DEYSI QUINTEROS Dec 11, 2017 3:11 PM 14 at breakfast 20 at lunch and 28 at supper Problem List As Of Date 12/11/2017 Noted Resolved SUBJECTIVE TINNITUS [H93.19] INVALID FOR* Obstructive sleep apnea [G47.33] INVALID FOR* Hyperlipidemia [E78.5] INVALID FOR* Coronary disease [I25.10] INVALID FOR* Diabetes mellitus, type II ([facility]) [E11.9] INVALID FOR* Morbid obesity ([facility]) [E66.01] Hypothyroidism [E03.9] Anxiety [F41.9] Sleep apnea [G47.30] 02/14/2017 Essential hypertension [I10] Coronary atherosclerosis of [place] coronary art* AF (paroxysmal atrial fibrillation) ([facility]) [I48.* COPD (chronic obstructive pulmonary disease) (H* GERD without esophagitis [K21.9] Dysphagia [R13.10] Constipation [K59.00] DM type 2 (diabetes mellitus, type 2) ([facility]) [E1* 02/14/2017 Shortness of breath [R06.02] 02/14/2017 Arthritis [M19.90] More... CHF (congestive heart failure) ([facility]) [I50.9] BPPV (benign paroxysmal positional vertigo) [H8*INVALID FOR* RLS (restless legs syndrome) [G25.81] INVALID FOR* Iron deficiency concern: RE RLS [E61.1] INVALID FOR* Tubular adenoma [D36.9] INVALID FOR* Incontinence [R32] More... Gastroparesis [K31.84] INVALID FOR* Pre-op testing [Z01.818] INVALID FOR* More... Encounter Status:Closed by CHRIS OCONNELL on 12/11/17 SCREENING MAMM (CAD), Observed: 12/11/2017 Status: F Source: STURGE[place] BILAT 11:04 AM [facility] REPOSITORY [facility] Imaging Services [address] [place] [address] SCREENING MAMM (CAD), BILAT MR#: [id number] Acct: [id number] Name: TAMIA PANDA Rep #: [id number] : 1955 F 62 From: [place] MD PCP: Bhupendra Oliveira MD Status: REG CLI Study: SCREENING MAMM (CAD), BILAT Date of Exam: 12/11/17 Exam# [id number] Ordering Dr: Bhupendra Oliveira MD MAMMOGRAPHY - [...] Service support , CC: Bhupendra Oliveira MD Adult Health Clinical Nurse Specialist: Signed MELCHOR Observed: 12/11/2017 Status: COMPLETED Source: RELIANCE 12:00 AM [facility] REPOSITORY Patient Outreach ([facility]WS) TAMIA PANDA ([id number]) 1955 F Date Time Provider Department 12/11/17 SAAD SILVESTRE (RN) [facility]WS During your visit today, we recorded the following information about you: Saad Silvestre RN 12/12/2017 12:00 PM Signed PRIMARY CARE COORDINATION IN OFFICE VISIT WITH PCP LATE ENTRY FOR 12/11/17 Patient has been identified by name and date of . PCP Assessment/Plan: Reviewed PCP plan with patient using Teach Back Discussed pt unable to get 2 lb Indogen oxygen machine from [facility], pt requesting PCC call [facility] and see if she can get smaller Indogen machine from them. PCC Plan of Care: Patient concerns: Pt having difficulty carrying portable oxygen tank because it is too heavy Next Office Visit: 12/11/2017 Plan For Next Call: One day Saad Silvestre RN December 12, 2017 Saad Silvestre RN 12/12/2017 12:30 PM Addendum TC to patient, informed [facility] doesn't carry oxygen supplies and [place] cannot get the smaller Indogen concentrator. Asked pt to call [facility] CM and ask her if there is another company we can contact to get the smaller concentrator. If CM has questions pt should give her PCC's number, verbalized agreement. Saad Silvestre RN December 12, 2017 12:30 PM TC to Jenny at [facility] asked about Indogen concentrators they carry. Jenny verified they only carry the portable concentrator that weighs about 5 lbs. They are not able to special order the 2.8 lb concentrator that is advertised on tv. Saad Silvestre RN December 12, 2017 12:14 PM TC to Yancy at [facility], states they do not carry any oxygen [...] Unknown Date Reviewed: 12/11/2017 Reviewed by: Deysi Zaragoza Ma - Fully Assessed Reason for Visit: Machine Baster-In Office Visit [[id number]] Prescriptions as of 12/11/2017 Sig: COMPOUNDED PRESCRIPTION [...] 02/14/2017 Essential hypertension [I10] Coronary atherosclerosis of [place] coronary art* AF (paroxysmal atrial fibrillation) (HCC) [I48.* COPD (chronic obstructive pulmonary disease) (H* GERD without esophagitis [K21.9] Dysphagia [R13.10] Constipation [K59.00] DM type 2 (diabetes mellitus, type 2) ([facility]) [E1* 02/14/2017 Shortness of breath [R06.02] 02/14/2017 Arthritis [M19.90] More... CHF (congestive heart failure) ([facility]) [I50.9] BPPV (benign paroxysmal positional vertigo) [H8*INVALID FOR* RLS (restless legs syndrome) [G25.81] INVALID FOR* Iron deficiency concern: RE RLS [E61.1] INVALID FOR* Tubular adenoma [D36.9] INVALID FOR* Incontinence [R32] More... Gastroparesis [K31.84] INVALID FOR* Pre-op testing [Z01.818] INVALID FOR* More... Encounter Status:Closed by SAAD SILVESTRE on 12/12/17 PROGRESS Observed: 11/28/2017 Status: COMPLETED Source: RELIANCE 9:09 AM [facility] REPOSITORY HNO ID: [id number] Author: Saad Allen) Larry Service: (none) Author Type: Registered Nurse Type: Progress Notes Filed: 11/28/2017 9:10 AM Note Text: Order faxed to [facility] Saad Silvestre RN November 28, 2017 9:10 AM PROGRESS Observed: 11/28/2017 Status: COMPLETED Source: RELIANCE 8:08 AM [facility] REPOSITORY HNO ID: [id number] Author: Nanda Rodriguez) Brian Service: (none) Author Type: Physician Type: Progress Notes Filed: 11/28/2017 9:10 AM Note Text: Order placed. Thank you very much for pending. PROGRESS Observed: 11/27/2017 Status: COMPLETED Source: RELIANCE 5:01 PM [facility] REPOSITORY HNO ID: [id number] Author: Saad Allen) Larry Service: (none) Author Type: Registered Nurse Type: Progress Notes Filed: 11/27/2017 5:08 PM Note Text: YOHANA Snell at [facility], discussed evaluation for conserver use. States she needs an order and they will go out and do a OCD Titration. States she needs the order to state a flow range and it must state to keep saturation at or above a certain percent. Fax prescription to [facility] at [phone] ORDER PENDED FOR YOUR APPROVAL PROGRESS Observed: 11/27/2017 Status: COMPLETED Source: RELIANCE 12:04 PM [facility] REPOSITORY O ID: [id number] Author: Chris Oconnell Service: (none) Author Type: [...] chronic obstructive pulmonary disease with respiratory failure ([facility]) - AF (paroxysmal atrial fibrillation) ([facility]) - Anxiety - Arthritis Seeing Dr Elliott - Cervical cancer ([facility]) hysterectomy - CHF (congestive heart failure) ([facility]) - Chronic back pain Seeing Dr. Wallace - Constipation - COPD (chronic obstructive pulmonary disease) ([facility]) - Coronary atherosclerosis of [place] coronary artery Previously seeing Dr. Sosa - DDD (degenerative disc disease), lumbar - DM type 2 (diabetes mellitus, type 2) ([facility]) Seeing Dr. Foley for podiatry - DVT (deep venous thrombosis) ([facility]) Post op INA, BSO. - Dysphagia Seeing Dr. Beaulieu - Emphysema lung ([facility]) - Essential hypertension - Functional dyspepsia - Gastroparesis 2017 mild - GERD without esophagitis - Headache - History of colon polyps 11/28/2016 - Hyperlipidemia - Hypothyroidism - Incontinence Seeing Dr. Chapman - Morbid obesity ([facility]) - Muscle weakness - Nausea - PARESH on CPAP [facility], no longer using as of 10/2017, was [...] supplies. Please fax day compliance download to [phone]. Dx: G47.33, G47.39. DME: 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 Social History Main Topics [...] well-hydrated, well nourished. Skin: left calf with [id number] wound- bottom brown in color, top red and more raw and moist. No drainage. + tender to touch. Erythema surrounding it more to the medial aspect of the calf measuring about [id number]. No warmth. No pain to the area [...] MUPIROCIN 2 % TOPICAL OINTMENT Chris Oconnell, EXPERIMENTAL ROCKET SLED MECHANIC PROGRESS Observed: 11/27/2017 Status: COMPLETED Source: RELIANCE 11:25 AM [facility] REPOSITORY HNO ID: [id number] Author: Saad Allen) Larry Service: (none) Author [...] in September but PCC will check with [facility]. PCC Plan of Care: Patient concerns: Open area on leg Patient goals: Pt will monitor leg wound and return if symptoms worsen Pt will wear O2 as ordered PCC Interventions: TC to [facility], all Resp Coordinators are busy, message left to call PCC back. TC to [facility], states they received the indogen prescription in September but pt is on 2L/minute continuous and indogen only has pulse dose. States they sent a request to a Traffic Workforce Representative to call patient. Transferred to Resp Coordinator but all lines busy, will have them call PCC back. Transferred to Traffic Workforce Representative Next Office Visit: 12/29/2017 Plan For Next Call: 2 weeks Saad Silvestre RN November 27, 2017 CNOV Observed: 11/27/2017 Status: COMPLETED Source: RELIANCE 11:00 AM [facility] REPOSITORY Office Visit (FAMPWS) TAMIA PANDA ([id number]) 1955 F Date Time Provider Department 11/27/17 11:00 AM CHRIS OCONNELL) CIERA During your visit today, we recorded [...] chronic obstructive pulmonary disease with respiratory failure ([facility]) - AF (paroxysmal atrial fibrillation) ([facility]) - Anxiety - Arthritis Seeing Dr Elliott - Cervical cancer ([facility]) hysterectomy - CHF (congestive heart failure) ([facility]) - Chronic back pain Seeing Dr. Wallace - Constipation - COPD (chronic obstructive pulmonary disease) ([facility]) - Coronary atherosclerosis of suquamish coronary artery Previously seeing Dr. Sosa - DDD (degenerative disc disease), lumbar - DM type 2 (diabetes mellitus, type 2) ([facility]) Seeing Dr. Foley for podiatry - DVT (deep venous thrombosis) ([facility]) Post op INA, BSO. - Dysphagia Seeing Dr. Beaulieu - Emphysema lung ([facility]) - Essential hypertension - Functional dyspepsia - Gastroparesis 2017 mild - GERD without esophagitis - Headache - History of colon polyps 11/28/2016 - Hyperlipidemia - Hypothyroidism - Incontinence Seeing Dr. Chapman - Morbid obesity ([facility]) - Muscle weakness - Nausea - PARESH on CPAP [facility], no longer using as of 10/2017, was not compliant - PE (pulmonary thromboembolism) ([facility]) Post op INA/BSO. - Pneumonia - [...] Please fax 30 day compliance download to [phone]. Dx: G47.33, G47.39. DME: 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 Social History Main Topics [...] well-hydrated, well nourished. Skin: left calf with [id number] wound- bottom brown in color, top red and more raw and moist. No drainage. + tender to touch. Erythema surrounding it more to the medial aspect of the calf measuring about [id number]. No warmth. No pain to the area [...] MUPIROCIN 2 % TOPICAL OINTMENT Chris Oconnell, EXPERIMENTAL ROCKET SLED MECHANIC Referring Provider: SELF [200] Allergies As of [...] 10/18/2004 Date Reviewed: 11/27/2017 Reviewed by: Deysi Zaragoza Ma - Fully Assessed Reason for Visit: Derm Problem [33] Cmt: on back of L leg/calf area Primary Visit Diagnosis:Cellulitis of skin [L03.90] Other Visit Diagnosis:Abrasion of left calf, initial encounter [M29.643H] Order(s):sulfamethoxazole-trimethoprim (BACTRIM DS) 800-160 mg per tabletTake [...] [I25.10] INVALID FOR* Diabetes mellitus, type II ([facility]) [E11.9] INVALID FOR* Morbid obesity ([facility]) [E66.01] Hypothyroidism [E03.9] Anxiety [F41.9] Sleep apnea [G47.30] 02/14/2017 Essential hypertension [I10] Coronary atherosclerosis of suquamish coronary art* AF (paroxysmal atrial fibrillation) ([facility]) [I48.* COPD (chronic obstructive pulmonary disease) (H* GERD without esophagitis [K21.9] Dysphagia [R13.10] Constipation [K59.00] DM type 2 (diabetes mellitus, type 2) ([facility]) [E1* 02/14/2017 Shortness of breath [R06.02] 02/14/2017 Arthritis [M19.90] More... CHF (congestive heart failure) ([facility]) [I50.9] BPPV (benign paroxysmal positional vertigo) [...] 11/27/17 MELCHOR Observed: 11/27/2017 Status: COMPLETED Source: RELIANCE 12:00 AM [facility] REPOSITORY Patient Outreach (FAMPWS) TAMIA PANDA ([id number]) 1955 F Date Time Provider Department 11/27/17 SAAD SILVESTRE (RN) FAMPWS During your visit [...] in September but PCC will check with [facility]. PCC Plan of Care: Patient concerns: Open area on leg Patient goals: Pt will monitor leg wound and return if symptoms worsen Pt will wear O2 as ordered PCC Interventions: TC to [facility], all Resp Coordinators are busy, message left to call PCC back. TC to [facility], states they received the indogen prescription in September but pt is on 2L/minute continuous and indogen only has pulse dose. States they sent a request to a Traffic Workforce Representative to call patient. Transferred to Resp Coordinator but all lines busy, will have them call PCC back. Transferred to Traffic Workforce Representative Next Office Visit: 12/29/2017 Plan For Next Call: 2 weeks Saad Silvestre RN November 27, 2017 Saad Silvestre RN 11/27/2017 5:08 PM Signed TC from Alis at [facility], discussed evaluation for conserver use. States she needs an order and they will go out and do a OCD Titration. States she needs the order to state a flow range and it must state to keep saturation at or above a certain percent. Fax prescription to [facility] at [phone] ORDER PENDED FOR YOUR APPROVAL Nanda Oliveira MD 11/28/2017 9:10 AM Signed Order placed. Thank you very much for pending. Saad Silvestre RN 11/28/2017 9:10 AM Signed Order faxed to [facility] Saad Silvestre RN November 28, [...] 10/18/2004 Date Reviewed: 11/27/2017 Reviewed by: Deysi Zaragoza Ma - Fully Assessed Reason for Visit: Machine Baster-In Office Visit [1290] Primary Visit Diagnosis:Chronic obstructive pulmonary disease, unspecified COPD type (HCC) [J44.9] Order(s):COMPOUNDED PRESCRIPTIONOCD Titration for portable oxygen [...] [I25.10] INVALID FOR* Diabetes mellitus, type II ([facility]) [E11.9] INVALID FOR* Morbid obesity ([facility]) [E66.01] Hypothyroidism [E03.9] Anxiety [F41.9] Sleep apnea [G47.30] 02/14/2017 Essential hypertension [I10] Coronary atherosclerosis of suquam[place] coronary art* AF (paroxysmal atrial fibrillation) ([facility]) [I48.* COPD (chronic obstructive pulmonary disease) (H* GERD without esophagitis [K21.9] Dysphagia [R13.10] Constipation [K59.00] DM type 2 (diabetes mellitus, type 2) ([facility]) [E1* 02/14/2017 Shortness of breath [R06.02] 02/14/2017 Arthritis [M19.90] More... CHF (congestive heart failure) ([facility]) [I50.9] BPPV (benign paroxysmal positional vertigo) [...] 11/28/17 PROGRESS Observed: 11/26/2017 Status: COMPLETED Source: RELIANCE 2:40 PM [facility] REPOSITORY HNO ID: [id number] Author: Clayton Serna Ma Service: (none) Author Type: (none) Type: Progress Notes Filed: 11/26/2017 2:41 PM Note Text: Patient notified - verbalized understanding. Will see MR tomorrow. PROGRESS Observed: 11/26/2017 Status: COMPLETED Source: RELIANCE 1:24 PM [facility] REPOSITORY HNO ID: [id number] Author: Nanda Rodriguez) Brian Service: (none) Author Type: Physician Type: Progress Notes Filed: 11/26/2017 2:41 PM Note Text: Low reading at lunch, will cut back on breakfast dose of humalog to 14 units. Work on diet as discussed previously. Follow up with OPERATIONS AND MAINTENANCE TECHNICAN tomorrow regarding leg wound. PROGRESS Observed: 11/26/2017 Status: COMPLETED Source: RELIANCE 12:44 PM [facility] REPOSITORY HNO ID: [id number] Author: Saad (Nina) Larry Service: (none) Author Type: Registered Nurse Type: Progress Notes Filed: 11/26/2017 1:02 PM Note Text: PRIMARY CARE COORDINATION FOLLOW-UP NOTE Provider Action/FYI Blister on leg-appt with OPERATIONS AND MAINTENANCE TECHNICAN tomorrow Please see BS Patient phones requesting [...] doesn't have a ride. Scheduled appt with OPERATIONS AND MAINTENANCE TECHNICAN on 11/27 Also states she is very [...] Take 2 tablets by mouth twice daily. Service Engine Repairer plan for next outreach: Will follow up one month Signature Saad Silvestre RN November 26, 2017 LMTOUTRSERINACH Observed: 11/26/2017 Status: COMPLETED Source: RELIANCE 12:00 AM [facility] REPOSITORY Patient Outreach (FAMPWS) HENRYTAMIA ([id number]) 1955 F Date Time Provider Department 11/26/17 SAAD SILVESTRE (NINA) CIERA During your visit today, we recorded the following information about you: Saad Silvestre RN 11/26/2017 1:02 PM Signed PRIMARY CARE COORDINATION FOLLOW-UP NOTE Provider Action/WILLEM Blister on leg-appt with OPERATIONS AND MAINTENANCE TECHNICAN tomorrow Please see BS Patient phones requesting [...] doesn't have a ride. Scheduled appt with OPERATIONS AND MAINTENANCE TECHNICAN on 11/27 Also states she is very [...] Take 2 tablets by mouth twice daily. Service Engine Repairer plan for next outreach: Will follow up one month Signature Saad Silvestre RN November 26, 2017 Nanda Oliveira MD 11/26/2017 2:41 PM Signed Low reading at lunch, will cut back on breakfast dose of humalog to 14 units. Work on diet as discussed previously. Follow up with OPERATIONS AND MAINTENANCE TECHNICAN tomorrow regarding leg wound. Clayton Serna Ma [...] Ma - Fully Assessed Reason for Visit: Machine Baster - Patient Initiated [3614] Primary Visit Diagnosis:Nausea [...] [I25.10] INVALID FOR* Diabetes mellitus, type II ([facility]) [E11.9] INVALID FOR* Morbid obesity ([facility]) [E66.01] Hypothyroidism [E03.9] Anxiety [F41.9] Sleep apnea [G47.30] 02/14/2017 Essential hypertension [I10] Coronary atherosclerosis of suquam[place] coronary art* AF (paroxysmal atrial fibrillation) ([facility]) [I48.* COPD (chronic obstructive pulmonary disease) (H* GERD without esophagitis [K21.9] Dysphagia [R13.10] Constipation [K59.00] DM type 2 (diabetes mellitus, type 2) ([facility]) [E1* 02/14/2017 Shortness of breath [R06.02] 02/14/2017 Arthritis [M19.90] More... CHF (congestive heart failure) ([facility]) [I50.9] BPPV (benign paroxysmal positional vertigo) [...] is not on file. Encounter Status:Closed by CLAYTON SERNA MA on 11/26/17 PROGRESS Observed: 11/14/2017 Status: COMPLETED Source: RELIANCE 12:39 PM [facility] RE[facility] O ID: [id number] Author: Saad (Rn) Larry Service: (none) Author Type: Registered Nurse Type: Progress Notes Filed: 11/14/2017 1:07 PM Note Text: PRIMARY CARE COORDINATION IN OFFICE VISIT WITH PCP Patient has been identified by name and date of . PCP Assessment/Plan: Reviewed PCP plan with patient using Teach Back Discussed upcoming gastric surgery with Dr. Hanna Discussed scheduling appt with Dr. Baez's OPERATIONS AND MAINTENANCE TECHNICAN, if pt doesn't feel comfortable going to the office since the of Dr. Baez she would like to transfer cardiac care to Dr. Valentino. Ptagreed PCC Plan of Care: Patient goals: Pt will keep appointment with Dr. Baez's OPERATIONS AND MAINTENANCE TECHNICAN PCC Interventions: TC to [facility], cardiology, scheduled appt with Dr. Baez's OPERATIONS AND MAINTENANCE TECHNICAN for pt for 11/19 at 9:00. TC to pt to inform of appt date and time, verbalized understanding. TC to [facility], asked maintenance worker swimming pool to fax left hip x- ray and visit note, she will fax immediately TC to Dr. Ford, asked to fax pt's last visit note, she will fax Next Office Visit: 12/29/2017 Plan For Next Call: One month Saad Silvestre RN November 14, 2017 PROGRESS Observed: 11/14/2017 Status: COMPLETED Source: RELIANCE 10:49 AM [facility] REPOSITORY HNO ID: [id number] Author: Nanda Rodriguez) Brian Service: (none) Author [...] in her wheelchair. Missed her appointment with OPERATIONS AND MAINTENANCE TECHNICAN at online producer's office after Dr. Baez . Patient was [...] (HCC) hysterectomy - CHF (congestive heart failure) (HCC) - Constipation - COPD (chronic obstructive pulmonary disease) (HCC) - Coronary atherosclerosis of suquam[place] coronary artery Seeing Dr. Sosa - Cough - DDD (degenerative disc disease), lumbar - DM type 2 (diabetes mellitus, type 2) ([facility]) Seeing Dr. Foley for podiatry - DVT (deep venous thrombosis) ([facility]) Post op INA, BSO. - Dysphagia Seeing Dr. Beaulieu - Emphysema lung ([facility]) - Essential hypertension - Functional dyspepsia - Gastroparesis 2016 mild - GERD without esophagitis - Headache - History of colon polyps 11/28/2016 - Hyperlipidemia - Hypothyroidism - Incontinence Seeing Dr. Chapman - Morbid obesity ([facility]) - Muscle weakness - Nausea - PARESH on CPAP [facility] - PE (pulmonary thromboembolism) ([facility]) Post op INA/BSO. - Pneumonia - [...] dinner ULTICARE PEN NEEDLE 31 gauge x 02/04 [...] Please fax 30 day compliance download to [phone]. Dx: G47.33, G47.39. DME: 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 Social History Main Topics [...] A1C - LIPID PANEL BASIC 2. Neuropathy (HCC) - ICD9: 355.9, ICD10: G62.9 Will start [...] unspecified vessel or lesion type, unspecified whether suquamish or transplanted heart (HCC) - ICD9: 414.00, 411.1, ICD10: I25.110 Patient to follow up with Dr. Baez's office and continue current regimen. Has nitro PRN for symptoms 7. Screening mammogram, encounter for - ICD9: V76.12, ICD10: Z12.31 - Set up for mammogram, yearly mammogram recommended - [facility] SCREENING 8. AF (paroxysmal atrial fibrillation) (HCC) - ICD9: 427.31, ICD10: I48.0 Rate controlled. Continue current regimen. 9. Congestive heart failure, unspecified congestive heart failure chronicity, unspecified congestive heart failure type (HCC) - ICD9: 428.0, ICD10: I50.9 No sign of fluid overload. Continue current regimen, follow up with cardiology. 10. Obesity, Class III, BMI 40-49.9 (morbid obesity) (HCC) - ICD9: 278.01, ICD10: E66.01 Patient to work on healthy diet. Will recheck at future visit. I spent 40 minutes in the visit, with more than 50% of the total wqjf-hy-hdxw time of the visit in counseling / coordination of care. Nanda Oliveira MD CNPTOUTREACH Observed: 11/14/2017 Status: COMPLETED Source: RELIANCE 12:00 AM [facility] REPOSITORY Patient Outreach (FAMPWS) TAMIA PANDA ([id number]) 1955 F Date Time Provider Department 11/14/17 SAAD SILVESTRE (RN) CIERA During your visit today, we recorded the following information about you: Saad Silvestre RN 11/14/2017 1:07 PM Signed PRIMARY CARE COORDINATION IN OFFICE VISIT WITH PCP Patient has been identified by name and date of . PCP Assessment/Plan: Reviewed PCP plan with patient using Teach Back Discussed upcoming gastric surgery with Dr. Hanna Discussed scheduling appt with Dr. Baez's OPERATIONS AND MAINTENANCE TECHNICAN, if pt doesn't feel comfortable going to the office since the of Dr. Baez she would like to transfer cardiac care to Dr. Valentino. Ptagreed PCC Plan of Care: Patient goals: Pt will keep appointment with Dr. Baez's OPERATIONS AND MAINTENANCE TECHNICAN PCC Interventions: TC to [facility], cardiology, scheduled appt with Dr. Baez's OPERATIONS AND MAINTENANCE TECHNICAN for pt for 11/19 at 9:00. TC to pt to inform of appt date and time, verbalized understanding. TC to [facility], asked maintenance worker swimming pool to fax left hip x- ray and [...] Ma - Fully Assessed Reason for Visit: Machine Baster-In Office Visit [6939] Prescriptions as of 11/14/2017 Sig: CAPSAICIN 0.075 [...] [I25.10] INVALID FOR* Diabetes mellitus, type II ([facility]) [E11.9] INVALID FOR* Morbid obesity ([facility]) [E66.01] Hypothyroidism [E03.9] Anxiety [F41.9] Sleep apnea [G47.30] 02/14/2017 Essential hypertension [I10] Coronary atherosclerosis of suquamish coronary art* AF (paroxysmal atrial fibrillation) ([facility]) [I48.* COPD (chronic obstructive pulmonary disease) (H* GERD without esophagitis [K21.9] Dysphagia [R13.10] Constipation [K59.00] DM type 2 (diabetes mellitus, type 2) ([facility]) [E1* 02/14/2017 Shortness of breath [R06.02] 02/14/2017 Arthritis [M19.90] More... CHF (congestive heart failure) ([facility]) [I50.9] BPPV (benign paroxysmal positional vertigo) [H8*INVALID FOR* RLS (restless legs syndrome) [G25.81] INVALID FOR* Iron deficiency concern: RE RLS [E61.1] INVALID FOR* Tubular adenoma [D36.9] INVALID FOR* Incontinence [R32] More... Gastroparesis [K31.84] INVALID FOR* Pre-op testing [Z01.818] INVALID FOR* More... Encounter Status:Closed by SAAD SILVESTRE on 11/14/17 PROGRESS Observed: 11/11/2017 Status: COMPLETED Source: RELIANCE 1:56 PM [facility] REPOSITORY HNO ID: [id number] Author: Nafisa (Rn) NINA Subramanian Service: (none) Author Type: Registered Nurse Type: Progress Notes Filed: 11/11/2017 2:01 PM Note Text: . PROGRESS Observed: 11/05/2017 Status: COMPLETED Source: RELIANCE 2:52 PM [facility] REPOSITORY HNO ID: [id number] Author: Korey Hanna Service: (none) Author Type: [...] Please fax 30 day compliance download to [phone]. Dx: G47.33, G47.39. DME: 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 Request/Comment: - Specimen received in preservative Culture Result - 10,000 - <50,000 CFU/ml Normal urogenital mario Performed By: #### URCUL #### [facility] [address] [place] [address] URINALYSIS WITH Collected: 10/23/2017 Status: F Source: RELIANCE MICROSCOPIC 4:55 PM [facility] REPOSITORY TYPE CODE TESTS RESULT OUT OF RANGE REFERENCE UNITS LAB UCOL Yellow Color Yellow LAB [facility] Clear Clarity Abnormal Cloudy Alert LAB UGLUC Negative mg/dL Glucose, Urine Negative LAB UBIL Negative Bilirubin, Urine Negative LAB UK[facility] Negative Ketones, Urine Negative LAB [facility] 1.005-1.030 Specific [place], Ur 1.012 LAB UHGB Negative Hemoglobin/Blood, Negative [...] Epithelial Cells Performed By: #### UAWMIC #### [facility] [address] [place], [place] [address] PROGRESS Observed: 10/23/2017 Status: COMPLETED Source: RELIANCE 3:56 PM [facility] REPOSITORY HNO ID: [id number] Author: Nanda Rodriguez) Brian Service: (none) Author Type: Physician Type: Progress Notes Filed: 10/23/2017 8:49 PM Note Text: Chief Complaint Patient presents with: Hospital Follow Up HPI Tamia Panda is a 62 year old female who presents here today for Hospital Discharge Follow up.. Patient was admitted to [facility] from 10/15-10/17 for acute metabolic encephalopathy due [...] chronic obstructive pulmonary disease with respiratory failure ([facility]) - AF (paroxysmal atrial fibrillation) ([facility]) - Anxiety - Arthritis Seeing Dr Elliott - Cervical cancer ([facility]) hysterectomy - CHF (congestive heart failure) ([facility]) - Constipation - COPD (chronic obstructive pulmonary disease) ([facility]) - Coronary atherosclerosis of suquamish coronary artery Seeing Dr. Sosa - Cough - DDD (degenerative disc disease), lumbar - DM type 2 (diabetes mellitus, type 2) ([facility]) Seeing Dr. Foley for podiatry - DVT (deep venous thrombosis) ([facility]) Post op INA, BSO. - Dysphagia Seeing Dr. Beaulieu - Emphysema lung ([facility]) - Essential hypertension - Functional dyspepsia - Gastroparesis 2016 mild - GERD without esophagitis - Headache - History of colon polyps 11/28/2016 - Hyperlipidemia - Hypothyroidism - Incontinence Seeing Dr. Chapman - Morbid obesity ([facility]) - Muscle weakness - Nausea - PARESH on CPAP [facility] - PE (pulmonary thromboembolism) ([facility]) Post op INA/BSO. - Pneumonia - [...] Please fax 30 day compliance download to [phone]. Dx: G47.33, G47.39. DME: 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 Social History Main Topics [...] with gastro regarding gastroparesis. Nanda Oliveira MD [facility] Observed: 10/23/2017 Status: COMPLETED Source: RELIANCE 12:00 AM [facility] REPOSITORY Patient Outreach (FAMPWS) TAMIA PANDA ([id number]) 1955 F Date Time Provider Department 10/23/17 SAAD SILVESTRE (RN) KENDRICKWS During your visit [...] LPN - Fully Assessed Reason for Visit: Machine Baster-In Office Visit [4194] Prescriptions as of 10/23/2017 Sig: VITAMIN C [...] [I25.10] INVALID FOR* Diabetes mellitus, type II ([facility]) [E11.9] INVALID FOR* Morbid obesity ([facility]) [E66.01] Hypothyroidism [E03.9] Anxiety [F41.9] Sleep apnea [G47.30] 02/14/2017 Essential hypertension [I10] Coronary atherosclerosis of suquamish coronary art* AF (paroxysmal atrial fibrillation) ([facility]) [I48.* COPD (chronic obstructive pulmonary disease) (H* GERD without esophagitis [K21.9] Dysphagia [R13.10] Constipation [K59.00] DM type 2 (diabetes mellitus, type 2) ([facility]) [E1* 02/14/2017 Shortness of breath [R06.02] 02/14/2017 Arthritis [M19.90] More... CHF (congestive heart failure) ([facility]) [I50.9] BPPV (benign paroxysmal positional vertigo) [H8*INVALID FOR* RLS (restless legs syndrome) [G25.81] INVALID FOR* Iron deficiency concern: RE RLS [E61.1] INVALID FOR* Tubular adenoma [D36.9] INVALID FOR* Incontinence [R32] More... Gastroparesis [K31.84] INVALID FOR* Encounter Status:Closed by SAAD SILVESTRE on 10/27/17 PROGRESS Observed: 10/21/2017 Status: COMPLETED Source: RELIANCE 9:10 AM [facility] REPOSITORY [facility] ID: [id number] Author: Saad (Rn) Larry Service: (none) Author Type: Registered Nurse Type: Progress Notes Filed: 10/21/2017 9:40 AM Note Text: TC to Bree at [facility], informed pt states she is still taking [...] low so she doesn't take it. Informed [facility] states they haven't filled it since May. States she has had enough insulin to last all this time. Reviewed with pt she is to call [facility] when she needs insulin, they don't automatically send it. Pt states she knows that and she does call them when she is low on supply. Saad Silvestre RN October 21, 2017 9:31 AM TC to [facility], they will deliver Bactrim today. Asked about Humalog insulin because it is not on pt's medication list they faxed. Reviewed past prescriptions and Delaney Giron Tech states patient has not gotten Humalog insulin since 06/05/17 and that was only a 30 day supply. States they do not refill insulin monthly unless they are asked. Saad Silvestre RN October 21, 2017 9:12 AM PROGRESS Observed: 10/20/2017 Status: COMPLETED Source: RELIANCE 4:17 PM [facility] REPOSITORY HNO ID: [id number] Author: Nanda Oliveira Service: (none) Author Type: Physician Type: Progress Notes Filed: 10/21/2017 9:40 AM Note Text: Sugars no longer low. Has sputum culture showing positive for MRSA. Will have patient stop Z pack and start bactrim instead due to sensitivities. Will obtain Xray in 10 days as well. PROGRESS Observed: 10/20/2017 Status: COMPLETED Source: RELIANCE 2:43 PM [facility] REPOSITORY HNO ID: [id number] Author: Saad Silvestre Service: (none) Author Type: [...] name and . SUMMARY: -Pt discharged from [facility] on 10/17. -Follow up appointment on 10/23 [...] Silvestre RN October 20, 2017 3:12 PM MELCHOR Observed: 10/20/2017 Status: COMPLETED Source: RELIANCE 12:00 AM [facility] REPOSITORY Patient Outreach (FAMPWS) TAMIA PANDA ([id number]) 1955 F Date Time Provider Department 10/20/17 SADA SILVESTRE (RN) FAMPWS During your visit today, [...] name and . SUMMARY: -Pt discharged from [facility] on 10/17. -Follow up appointment on 10/23 [...] pain but notes some ANDquot;chest heavinessANDquot; Tamia Rodriguez Henry is a 62 year [...] RN 10/21/2017 9:40 AM Signed TC to [facility], informed pt states she is still [...] low so she doesn't take it. Informed [facility] states they haven't filled it since May. States she has had enough insulin to last all this time. Reviewed with pt she is to call [facility] when she needs insulin, they don't automatically send it. Pt states she knows that and she does call them when she is low on supply. Saad Silvestre RN October 21, 2017 9:31 AM TC to [facility], they will deliver Bactrim today. Asked [...] 10/18/2004 Date Reviewed: 10/14/2017 Reviewed by: Deysi Zaragoza Ma - Fully Assessed Reason for Visit: [facility] Follow Up [3610] Primary Visit Diagnosis:MRSA (methicillin resistant staph aureus) culture positive [Z22.322] Other Visit Diagnosis:Coronary artery disease with unstable angina pectoris, unspecified vessel or lesion type, unspecified whether suquamish or transplanted heart (HCC) [I25.110] Order(s):isosorbide mononitrate ER (IMDUR) 60 mg 24 hr tabletTake 1.5 tablets by mouth once daily. In the morningDisp: 30 tabletRfl: 11 sulfamethoxazole-trimethoprim (BACTRIM DS) 800-160 mg per tabletTake 1 tablet by mouth twice daily for 10 days.Disp: 20 tabletRfl: 0 XR CHEST 2V FRONTAL/LAT [6499547] Order #: [id number] FUTURE Prescriptions as of 10/20/2017 Sig: ISOSORBIDE [...] [I25.10] INVALID FOR* Diabetes mellitus, type II ([facility]) [E11.9] INVALID FOR* Morbid obesity ([facility]) [E66.01] Hypothyroidism [E03.9] Anxiety [F41.9] Sleep apnea [G47.30] 02/14/2017 Essential hypertension [I10] Coronary atherosclerosis of suquamish coronary art* AF (paroxysmal atrial fibrillation) ([facility]) [I48.* COPD (chronic obstructive pulmonary disease) (H* GERD without esophagitis [K21.9] Dysphagia [R13.10] Constipation [K59.00] DM type 2 (diabetes mellitus, type 2) ([facility]) [E1* 02/14/2017 Shortness of breath [R06.02] 02/14/2017 Arthritis [M19.90] More... CHF (congestive heart failure) ([facility]) [I50.9] BPPV (benign paroxysmal positional vertigo) [...] DISCHARGE SUMMARY Observed: 10/19/2017 Status: F Source: [place] 11:37 [facility] REPOSITORY [facility] Medical Records Department [address] [place] [address] Discharge Summary 10/17/17 1017 MR#: [id number] Acct: [id number] Name: TAMIA PANDA Rep #: [id number] : 1955 62 From: Shirley Fabian MD PCP: Bhupendra Oliveira MD Status: DIS NICOLE Y Location: [place] [address] Discharge Date and Diagnosis Date of Admission: [...] 2, uncontrolled, labile, 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 4. Acute COPD exacerbation, mild, managed on [...] applicable Code Visit Inpatient E AND M: 23856 Disch Hosp 10/19/17 1137 <Electronically signed by Shirley Fabian MD> Date Shirley Fabian MD Cosigner Signature (if applicable): Date CC: Bhupendra Oliveira MD; Shirley Fabian MD Signed BEDSIDE GLUCOSE Collected: 10/17/2017 Status: F Source: [place] 12:24 PM [facility] REPOSITORY TYPE CODE TESTS RESULT OUT OF REFERENCE UNITS RANGE LAB L501.080 70-110 mg/dL High BEDSIDE GLU 401 Result Comment: MANAGEMENT OF PATIENT CARE PER NURSING PROTOCOL Performed By: #### L501.080 #### [facility] Point of Care [address] [place] [address] [place] [address] DISCHARGE INSTRUCTION Observed: 10/17/2017 Status: F Source: [place] 10:17 AM [facility] REPOSITORY [facility] Medical Records Department [address] [place] [address] Instructions for Home/Discharge Instructions 10/17/17 1011 MR#: [id number] Acct: [id number] Name: TAMIA PANDA Jennifer Rep #: [id number] : 1955 62 From: Shirley Fabian MD [...] 15:13) Hives latex Allergy (Verified 10/16/17 15:13) amtos me niacin [From [facility] Extended-Release] Allergy (Verified [...] Date: 10/17/17 10/17/17 1017 <Electronically signed by Shirley Fabian MD> Date Shirley Fabian MD CC: Bhupendra Oliveira MD BASIC METABOLIC Collected: 10/17/2017 Status: F Source: [place] PROFILE (BMP) 9:45 AM [facility] REPOSITORY TYPE CODE TESTS RESULT OUT OF [...] GAP 10 Performed By: #### L500.2500 #### [facility] [address] [place], [address] CBC W/DIFF, AUTOMATED Collected: 10/17/2017 Status: F Source: KINJAL 7:10 AM [facility] REPOSITORY TYPE CODE TESTS RESULT OUT OF [...] Lymph 0.59 Performed By: #### L100.0100 #### [facility] [address] [place], [address] BEDSIDE GLUCOSE Collected: 10/17/2017 Status: F Source: [place] 5:14 AM [facility] REPOSITORY TYPE CODE TESTS RESULT OUT OF REFERENCE UNITS RANGE LAB L501.080 70-110 mg/dL High BEDSIDE GLU 206 Result Comment: Dr Yousif Followed MANAGEMENT OF PATIENT CARE PER NURSING PROTOCOL Performed By: #### L501.080 #### [facility] Point of Care [address] [place] [address] EMERGENCY DEPARTMENT Observed: 10/17/2017 Status: F Source: [place] SUMMARY 12:07 AM [facility] REPOSITORY [facility] Medical Records Department [address] [place] [address] Emergency Department Summary 10/16/17 1505 MR#: [id number] Acct: [id number] Name: TAMIA PANDA Rep #: [id number] : 1955 62 From: Bao Miles DO [...] Diabetic hypoglycemia This note was generated with [employer] dictation software. It may contain incorrect words, [...] your Primary Care Provider. Call [facility] ([phone]) or report to the closest Emergency Room. Call 911 if necessary. 10/17/17 0007 <Electronically signed by Bao [place] DO> Date Bao Jd DO Cosigner Signature (If Indicated): Date CC: Bhupendra Oliveira MD Observed: 10/16/2017 Status: F Source: [place] CULTURE, SPUTUM 10:54 PM [facility] REPOSITORY Gram Stain Acceptable Specimen? Yes (<25 [...] <=0.5 S (NF) indicates non-formulary drug at [facility]. Approval by Infectious Disease Specialist required before non-formulary drugs may be ordered and/or dispensed. * CLSI guidelines does not recommend testing of cephalosporins. This interpretation is deduced from Beta-lactam/penicillin results. Performed By: #### M100.0800 #### [facility] [address] [place], [address] Observed: 10/16/2017 Status: F Source: [place] INFLUENZA A+B (RAPID 10:25 PM [facility] ISSA) REPOSITORY FLU A/B Rapid Negative test results should be confirmed by culture. Order Rapid Viral Culture for Influenzae A+B ([id number]) if clinically indicated. Influenza Ag, Direct Presumptive NEGATIVE for Influenza A/B Antigen (See Note) Performed By: #### M101.0101 #### [facility] [address] [place], [address] HISTORY AND PHYSICAL Observed: 10/16/2017 Status: F Source: [place] EXAM 8:56 PM [facility] REPOSITORY [facility] Medical Records Department [address] [place] [address] History and Physical 10/16/172032 MR#: [id number] Acct: [id number] Name: TAMIA PANDA Rep #: [id number] : 1955 62 From: Joseph Wright MD PCP: Bhupendra Oliveira MD Status: ADM NICOLE Y Location: [place] [address] Problem List (1) Acute metabolic encephalopathy due [...] ligation. 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 Smoking Status: Former smoker - *Family [...] family members. This note was generated with [employer] dictation software. Every effort was made to ensure accuracy, however computerized information security risk analyst mistakes may persist. Code Visit Inpatient E AND M: 40102 Init Hosp L3 Procedures: 00724 Advncd Care Plan 30 Min 10/16/172055 <Electronically signed by Joseph Wright MD> Date Joseph Wright MD Cosigner Signature: Date (if applicable) CC: Bhupendra Oliveira MD; Joseph Wright MD Signed CHEST PA AND LATERAL Observed: 10/16/2017 Status: F Source: [place] 8:51 PM [facility] REPOSITORY [facility] Imaging Services [address] [place] [address] Chest PA and Lateral MR#: [id number] Acct: [id number] Name: TAMIA PANDA Rep #: [id number] : 1955 F 62 From: Rudolph Fonseca MD PCP: Bhupendra Oliveira MD Status: ADM NICOLE Study: Chest PA and Lateral Date of Exam: 10/16/17 Exam# [id number] Ordering Dr: Joseph Wirght MD STUDY: X-RAY CHEST REASON FOR EXAM: [...] CC: Bhupendra Oliveira MD; Joseph Wright MD Adult Health Clinical Nurse Specialist: Signed BEDSIDE GLUCOSE Collected: 10/16/2017 Status: F Source: KINJAL 8:05 PM [facility] REPOSITORY TYPE CODE TESTS RESULT OUT OF REFERENCE UNITS RANGE LAB L501.080 70-110 mg/dL High BEDSIDE GLU 141 Result Comment: MANAGEMENT OF PATIENT CARE PER NURSING PROTOCOL Performed By: #### L501.080 #### [facility] Point of Care [address] [place] [address] BEDSIDE GLUCOSE Collected: 10/16/2017 Status: F Source: KINJAL 6:33 PM [facility] REPOSITORY TYPE CODE TESTS RESULT OUT OF REFERENCE UNITS RANGE LAB L501.080 70-110 mg/dL High BEDSIDE GLU 123 Result Comment: MANAGEMENT OF PATIENT CARE PER NURSING PROTOCOL Performed By: #### L501.080 #### [facility] Point of Care [address] [place] [address] BEDSIDE GLUCOSE Collected: 10/16/2017 Status: F Source: KINJAL 5:27 PM [facility] REPOSITORY TYPE CODE TESTS RESULT OUT OF RANGE REFERENCE UNITS LAB L501.080 70-110 mg/dL Normal BEDSIDE GLU 77 Result Comment: MANAGEMENT OF PATIENT CARE PER NURSING PROTOCOL Performed By: #### L501.080 #### [facility] Point of Care [address] [place] [address] BRAIN/HEAD WITHOUT Observed: 10/16/2017 Status: F Source: [place] CONTRAST 4:22 PM [facility] REPOSITORY [facility] Imaging [place] [address] Brain/Head without Contrast MR#: [id number] Acct: [id number] Name: TAMIA PANDA Rep #: [id number] : 1955 F 62 From: Tejal Ardon MD PCP: Bhupendra Oliveira MD Status: REG ER Study: Brain/Head without Contrast Date of Exam: 10/16/17 Exam# [id number] Ordering Dr: Bao Miles DO STUDY: CT [...] CC: Bhupendra Oliveira MD; Bao Miles DO Adult Health Clinical Nurse Specialist: Signed BEDSIDE GLUCOSE Collected: 10/16/2017 Status: F Source: KINJAL 4:05 PM [facility] REPOSITORY TYPE CODE TESTS RESULT OUT OF RANGE REFERENCE UNITS LAB L501.080 70-110 mg/dL Normal BEDSIDE GLU 107 Result Comment: MANAGEMENT OF PATIENT CARE PER NURSING PROTOCOL Performed By: #### L501.080 #### [facility] Point of Care [address] [place], [place] [address] BEDSIDE GLUCOSE Collected: 10/16/2017 Status: F Source: KINJAL 3:26 PM [facility] REPOSITORY TYPE CODE TESTS RESULT OUT OF REFERENCE UNITS RANGE LAB L501.080 70-110 mg/dL High BEDSIDE GLU 200 Result Comment: MANAGEMENT OF PATIENT CARE PER NURSING PROTOCOL Performed By: #### L501.080 #### [facility] Point of Care [address] [place] [address] COMPREHENSIVE METABOLIC Collected: 10/16/2017 Status: F Source: KINJAL PROFIL 2:55 PM [facility] REPOSITORY TYPE CODE TESTS RESULT OUT OF [...] 7 GAP Performed By: #### L500.4050 #### [facility] [address] [place], [address] CBC W/DIFF, AUTOMATED Collected: 10/16/2017 Status: F Source: [place]URGE[place] 2:55 PM [facility] REPOSITORY TYPE CODE TESTS RESULT OUT OF [...] Lymph 1.19 Performed By: #### L100.0100 #### [facility] [address] [place], [place], [address] BNP,B-TYPE NATRIURETIC Collected: 10/16/2017 Status: F Source: [place] PEPTIDE 2:55 PM [facility] REPOSITORY TYPE CODE TESTS RESULT OUT OF RANGE REFERENCE UNITS LAB L503.6620 0-100 pg/mL High B-TYPE 153.0 STONEY PEP Performed By: #### L503.6620 #### [facility] [address] [place], [place], [address] BEDSIDE GLUCOSE Collected: 10/16/2017 Status: F Source: KINJAL 2:45 PM [facility] REPOSITORY TYPE CODE TESTS RESULT OUT OF REFERENCE UNITS RANGE LAB L501.080 70-110 mg/dL Low BEDSIDE GLU 57 Result Comment: MANAGEMENT OF PATIENT CARE PER NURSING PROTOCOL Performed By: #### L501.080 #### [facility] Point of Care [address] [place], [place] [address] ALLERGIES ALLERGIES DATE TYPE / CODE NAME / CODE REACTION SEVERITY SOURCE Drug orphenadrine groggy Unknown [place] 8 Allergy/332023055 citrate/G567741766 [facility] (SNOMED CT) (RXNORM) Hospital Repository Drug Xanthines/Q0086042 Unknown Unknown [place] 8 Allergy/955063775 40(RXNORM) [facility] (SNOMED CT) Hospital Repository Drug niacin/N978865455( Hives Unknown [place] 8 Allergy/934109192 RXNORM) [facility] (SNOMED CT) Hospital Repository Drug ciprofloxacin/F006 Hives Unknown [place] 8 Allergy/468516065 075517(RXNORM) [facility] (SNOMED CT) Hospital Repository Drug ondansetron/V75830 Unknown Unknown [place] 8 Allergy/629275618 4807(RXNORM) [facility] (SNOMED CT) Hospital Repository Drug latex/E817915997(R matos me Unknown [place] 8 Allergy/054481168 XNORM) [facility] (SNOMED CT) Hospital Repository Miscellaneous medical tape blisters Unknown [place] 8 Allergy/719002886 [facility] (SNOMED CT) Hospital Repository Drug Penicillins/E43379 Itching/redness [place] 8 Allergy/062027927 0476(RXNORM) [facility] (SNOMED CT) Hospital Repository DRUG CAPSAICIN ITCHING [place] 8 INGREDI/497636419 [facility] (SNOMED CT) [place] Repository Drug cephalexin/W429536 Unknown Unknown [place] 8 Allergy/635260778 716(RXNORM) [facility] (SNOMED CT) Hospital Repository DRUG/197335660(SN ONDANSETRON HCL ITCHING [place] [address]) (PF) [facility] Main [place] Repository Drug ciprofloxacin Hives Unknown [place] 8 Allergy/466188703 HCl/S146716016(RXN [facility] (SNOMED CT) OR) Hospital Repository DRUG METOCLOPRAMIDE HCL OTHER: SEE C [place] 7 INGREDI/559941962 [facility] (SNOMED CT) [place] Repository DRUG CEPHALEXIN HIVES [place] 6 INGREDI/867650616 [facility] (SNOMED CT) [place] Repository Animal/718083108( CATS OTHER: SEE C Med [place] [address] [facility] Main [place] Repository Animal/721601973( DOGS OTHER: SEE C Med [place] [address] [facility] Main [place] Repository DRUG ORPHENADRINE UNKNOWN Med [place] 6 INGREDI/835154843 [facility] (SNOMED CT) [place] Repository Chemical/13684420 ADHESIVE TAPE INTOLERANCE High [place] 5 6(SNOMED CT) (ROSINS) Clinic Main [place] Repository DRUG NIACIN UNKNOWN [place] 5 INGREDI/311669832 [facility] (SNOMED CT) [place] Repository Drug PENICILLINS UNKNOWN [place] 5 Class/802114501(S [facility] Main NOMED CT) [place] Repository DRUG CIPROFLOXACIN OTHER: SEE C [place] 2 INGREDI/724965071 [facility] (SNOMED CT) [place] Repository Drug XANTHINES UNKNOWN [place] 5 Class/617725460(S [facility] NOM[facility]) [place] Repository Drug NIACIN [place] 5 Class/829448309(S PREPARATIONS [facility] NOMED CT) [place] Repository DRUG PENICILLIN G [place] 5 INGREDI/044036921 [facility] (SNOMED CT) [place] Repository Drug XANTHINES [place] 5 Class/784213802(S [facility] NOMED CT) [place] Repository NG/745009194(SNOM ONDANSETRON HCL [facility] ED CT) (PF) Health System Repository NG/459847055(SNOM ADHESIVE TAPE [facility] ED CT) (ROSINS) Health System Repository NG/971065849(SNOM CATS [facility] ED CT) Health System Repository NG/422670338(SNOM DOGS [facility] ED CT) Health System Repository NG/950218540(SNOM ORPHENADRINE [facility] ED CT) Health System Repository NG/500311776(SNOM CIPROFLOXACIN [facility] ED CT) Health System Repository NG/658409975(SNOM CEPHALEXIN [facility] ED CT) Health System Repository NG/366912813(SNOM NIACIN [facility] ED CT) Health System Repository NG/093781314(SNOM NIACIN [facility] ED CT) PREPARATIONS Health System Repository NG/949212942(SNOM PENICILLIN G [facility] ED CT) Health System Repository NG/153825677(SNOM PENICILLINS [facility] ED CT) Health System Repository NG/298652017(SNOM METOCLOPRAMIDE HCL [facility] ED CT) Health System Repository NG/593754232(SNOM XANTHINES [facility] ED CT) Health System Repository ENCOUNTERS ENCOUNTERS ADMIT/DISCHARGE ACCOUNT NUMBER ADMITTING ENCOUNTER LOCATION SOURCE CLASS 10/05/2018/10/06/19 [id number] Ambulatory [address] Main [place] Repository 10/05/2018/10/05/19 [id number] Ambulatory [address] Repository 10/05/2018/10/07/19 [id number] Ambulatory [address] Main [place] Repository 09/30/2018/09/30/19 [id number] Ambulatory [address] Main [place] Repository 09/30/2018/09/30/19 [id number] Ambulatory [address] Repository 09/25/2018/09/25/19 [id number] Ambulatory [address] Repository 09/25/2018/09/28/19 [id number] Ambulatory [address] Repository 09/22/2018 [id number] Ambulatory [facility] ding:LAB Repository 09/09/2018 [id number] Annamarie Andrews Ambulatory BMSBuilding: [place] Yolanda BMS.[facility] Repository 09/09/2018 [id number] Koram Annamarie Ambulatory BMSBuilding: [place] Yolanda BMS.[facility] Repository 09/09/2018 [id number] Annamarie Andrews Ambulatory BMSBuilding: [place] Yolanda BMS.[facility] Repository 09/09/2018/09/11/20 [id number] Annamarie Andrews Inpatient [place] [facility] ding:PCURo Repository : [id number]: 1 09/02/2018 [id number] [place], Ambulatory BMSBuilding: [place] Anna BMS.[facility] Repository 09/02/2018/09/03/20 [id number] [place], Ambulatory [address] ding:PCURoom Repository : [id number]: 1 09/02/2018 [id number] [place]i, Ambulatory BMSBuilding: [place] Anna BMS.[facility] Repository 08/31/2018 [id number] Ambulatory [facility] ding:HHLAB Repository 08/31/2018/08/31/20 [id number] Ambulatory [address] ding:HHLAB Repository 08/17/2018/08/18/20 [id number] Ambulatory [address] Repository 08/13/2018/08/13/20 [id number] Emergency [address] ding:ED Repository 08/11/2018/08/21/20 [id number] Ambulatory [address] ding:LAB Repository 08/05/2018 [id number] Zuhair Cohn Ambulatory BMSBuilding: [place] BMS.[facility] Repository 08/05/2018 [id number] [place] Ambulatory BMSBuilding: [place] BMS.[facility] Repository 08/05/2018/08/06/20 [id number] Zuhair Cohn Ambulatory [address] ding:PCURoom Repository : [id number]: 1 08/03/2018/08/04/20 [id number] Ambulatory [address] Repository 07/25/2018 [id number] Zuhair Cohn Ambulatory BMSBuilding: [place] BMS.[facility] Repository 07/25/2018 [id number] Zuhair Cohn Ambulatory BMSBuilding: [place] BMS.[facility] Repository 07/25/2018/07/26/20 [id number] Zuhair Cohn Ambulatory [address] ding:XX9Hryn Repository : [id number]: 1 07/22/2018/10/31 [id number] Emergency [address] ding:ED Repository 06/03/2018/06/04/20 [id number] Ambulatory [address] Repository 05/20/2018/05/20/20 [id number] Ambulatory [address] Repository 05/20/2018/05/26/20 [id number] Ambulatory [address] Repository 05/17/2018 [id number] [place] Ambulatory BMSBuilding: [place] BMS.[facility] Repository 05/17/2018 [id number] [place] Ambulatory BMSBuilding: [place] BMS.[facility] Repository 05/17/2018/05/18/20 [id number] [place] Inpatient [place] [address] Encounter [facility] ding:PCURoom Repository : [id number]: 1 05/06/2018/05/07/20 [id number] Ambulatory [address] Repository 05/01/2018/05/05/20 [id number] Ambulatory [address] Repository 04/13/2018 [id number] Ambulatory [facility] ding:SL Repository 04/13/2018/04/13/20 [id number] Ambulatory [address] Repository 04/13/2018/04/15/20 [id number] Ambulatory [address] Repository 04/04/2018/04/07/20 [id number] [place] Inpatient [place] [address] Encounter [facility] ding:PCURoom Repository : [id number]: 1 04/04/2018 [id number] [place] Ambulatory BMSBuilding: [place] BMS.[facility] Repository 04/04/2018 [id number] [place] Ambulatory BMSBuilding: [place] BMS.[facility] Repository 04/04/2018 [id number] [place] Ambulatory BMSBuilding: [place] BMS.[facility] Repository 04/04/2018 [id number] [place] Ambulatory BMSBuilding: [place] BMS.[facility] Repository 03/20/2018/03/20/20 [id number] Ambulatory [facility] [place] Repository 03/20/2018/03/24/20 [id number] Ambulatory [facility] [place] Repository 03/20/2018/03/20/20 [id number] Ambulatory [facility] [place] Repository 03/20/2018/03/20/20 [id number] Ambulatory [place] 18 [facility] [place] Repository 03/20/2018/03/20/20 [id number] Ambulatory [facility] [facility] [place] Repository 03/20/2018/03/24/20 [id number] Ambulatory [place] [facility] [place] Repository 03/02/2018/03/03/20 [id number] Ambulatory [facility] [place] Repository 03/02/2018/03/03/20 [id number] Ambulatory [place] 18 [facility] [place] Repository 02/26/2018/02/27/20 [id number] Ambulatory [address] [place] Repository 02/26/2018 [id number] Ambulatory [facility] MEDICAL Repository CENTERBuildi ng:CAGWS 02/20/2018/02/24/20 [id number] Ambulatory [address] Repository 02/07/2018 [id number] Donn Baker Ambulatory BMSBuilding: [place] BMS.[facility] Repository 02/07/2018 [id number] Olivia Donn Ambulatory BMSBuilding: [place] BMS.[facility] Repository 02/07/2018 [id number] Olivia Donn Ambulatory BMSBuilding: [place] BMS.[facility] Repository 02/07/2018 [id number] Olivia Donn Ambulatory BMSBuilding: [place] BMS.[facility] Repository 02/07/2018 [id number] Olivia Donn Ambulatory BMSBuilding: [place] BMS.[facility] Repository 02/07/2018/02/12/20 [id number] Olivia Donn Inpatient Kinjal Kinjal 18 [facility] ding:PCURoom Repository : [id number]: 1 02/03/2018/02/07/20 [id number] Kyle, Inpatient Kinjal Maunaloa [address] [facility] Encounter [facility] ding:PCURoom Repository : [id number]: 1 02/03/2018 [id number] Kyle, Ambulatory BMSBuilding: Kinjal Joseph BMS.CF.[facility] Repository 02/03/2018 [id number] [facility], Ambulatory BMSBuilding: Kinjal Joseph [facility] Repository 02/03/2018 [id number] [facility], Ambulatory BMSBuilding: Kinjal Joseph BMS.[facility] Repository 02/03/2018 [id number] [facility], Ambulatory BMSBuilding: Kinjal Joseph BMS.CF.[facility] Repository 02/03/2018 [id number] [facility], Ambulatory BMSBuilding: Kinjal Joseph [facility] Repository 02/03/2018 [id number] [facility], Ambulatory BMSBuilding: Kinjal Joseph BMS.[facility] Repository 02/03/2018 [id number] [facility], Ambulatory BMSBuilding: Maunaloa Joseph BMS.CF.[facility] Repository 02/03/2018 [id number] [facility], Ambulatory BMSBuilding: Kinjal Joseph [facility] Repository 02/03/2018 [id number] [facility], Ambulatory BMSBuilding: Kinjal Joseph BMS.[facility] Repository 02/03/2018/02/07/20 [id number] Ambulatory [address] Repository 01/30/2018/02/01/20 [id number] CATHLEEN, Ambulatory [address] Repository 01/27/2018/02/06/20 [id number] Ambulatory [address] Repository 01/23/2018/01/24/20 [id number] Ambulatory [address] Repository 01/23/2018/01/24/20 [id number] Ambulatory [address] Repository 01/23/2018 [id number] Ambulatory [facility] Repository 01/23/2018/01/24/20 [id number] Ambulatory [address] Repository 01/22/2018/01/27/20 [id number] Ambulatory [address] Repository 01/15/2018 [id number] Ambulatory [facility] Repository 01/15/2018/01/16/20 [id number] Ambulatory [address] Repository 01/15/2018/01/16/20 [id number] Emergency [address] ding:ED Repository 01/02/2018 [id number] Imamura, Ambulatory BMSBuilding: Kinjal Yoichi BMS.[facility] Repository 01/02/2018 [id number] Imamura, Ambulatory BMSBuilding: Kinjal Yoichi BMS.[facility] Repository 01/02/2018 [id number] Imamura, Ambulatory BMSBuilding: Kinjal Yoichi BMS.[facility] Repository 01/02/2018/01/05/20 [id number] Imamura, Ambulatory [address] ding:PCURoom Repository : [id number]: 1 01/01/2018/01/03/20 [id number] Ambulatory [address] Repository 12/23/2017 [id number] Ambulatory BMSBuilding: [facility] Repository 12/23/2017 [id number] Ambulatory [facility] ding:CLSP Repository 12/18/2017/12/19/19 [id number] Ambulatory [address] Repository 12/18/2017/12/19/19 [id number] Ambulatory [address] MEDICAL Repository CENTERBuildi ng:CAG 12/17/2017 [id number] Ambulatory BMSBuilding: [facility] Repository 12/17/2017 [id number] Ambulatory [facility] ding:CVS Repository 12/16/2017/12/17/19 [id number] Ambulatory [address] Repository 12/16/2017/12/17/19 [id number] Ambulatory [address] MEDICAL Repository CENTERBuildi ng:CAGWS 12/15/2017 [id number] Ambulatory [facility] Repository 12/15/2017/12/16/19 [id number] MARGOTH, Ambulatory [address] Repository 12/15/2017/12/17/19 [id number] CATHLEEN, Ambulatory [address] Repository 12/15/2017/12/27/19 [id number] CATHLEEN, Ambulatory [address] Repository 12/15/2017/12/16/19 [id number] CATHLEEN, Ambulatory [address] Repository 12/15/2017/12/16/19 [id number] [place], Ambulatory [address] Repository 12/15/2017/12/16/19 [id number] CATHLEEN, Ambulatory [address] Repository 12/15/2017 [id number] CATHLEEN, Ambulatory [facility] Repository 12/11/2017/12/12/19 [id number] Ambulatory [address] Repository 12/11/2017/12/13/19 [id number] Ambulatory [address] Repository 12/11/2017 [id number] Ambulatory [facility] ding:BI Repository 11/27/2017/12/02/19 [id number] Ambulatory [address] Repository 11/24/2017 [id number] Ambulatory [facility] ding:SDC Repository 11/14/2017/11/14/19 [id number] Ambulatory [address] Repository 11/05/2017/11/05/19 [id number] Ambulatory [address] Repository 10/23/2017/10/23/19 [id number] Ambulatory [address] Repository 10/23/2017/10/28/19 [id number] Ambulatory [address] Repository 10/16/2017 [id number] [facility], Ambulatory BMSBuilding: Kinjal Joseph BMS.[facility] Repository 10/16/2017 [id number] [facility], Ambulatory BMSBuilding: Kinjal Joseph BMS.[facility] Repository 10/16/2017/10/17/19 [id number] [facility], Ambulatory [address] ding:ZG3Ocyu Repository : AT451Ryc: 1 PAYERS PAYERS ENCOUNTER GUARANTOR PAYER SUBSCRIBER SOURCE 09/22/2018 TAMIA Rodriguez [id number] Primary [address]IA [address] Insurance:[facility] SENZDOB: [facility], [place] [facility] [id number] Hospital [address]Cgd: (330) Number: Repository [phone] () [id number] Date:3882-16-80MD [address] [address]OJ: 09/22/2018 Secondary NOT GIVENUNK Maunaloa Insurance:SELF PAY [facility] Number: Effective Repository Date:2018-09-21 09/09/2018 TAMIA J [id number] Primary TAMIA J Maunaloa [address] Insurance:[facility] SENZDOB: [id number] [facility] [id number] Hospital [address]Qye: (330) Number: Repository [phone] () [id number] Date:6910-10-60AK [address] [address]FB: 09/09/2018 Secondary NOT GIVENUNK Maunaloa Insurance:SELF PAY [facility] Number: Effective Repository Date:2018-09-09 09/09/2018 TAMIA J [id number] Primary TAMIA J Maunaloa [address] Insurance:[facility] SENZDOB: Community [id number] [facility] [id number] Hospital [address]Bdb: (330) Number: Repository [phone] () [id number] Date:9693-85-32YM [address] [address]JE: 09/09/2018 Secondary NOT GIVENUNK Kinjal Insurance:SELF PAY [facility] Number: Effective Repository Date:2018-09-09 09/09/2018 TAMIA J [id number] Primary TAMIA J Kinjal [address] Insurance:[facility] SENZDOB: [place] [id number][place] [facility] [id number] Hospital [address]Kej: (330) Number: Repository [phone] () [id number] Date:8932-61-63YL [address] [address]CE: 09/09/2018 Secondary NOT GIVENUNK Kinjal Insurance:SELF PAY [facility] Number: Effective Repository Date:2018-09-09 09/09/2018 TAMIA J [id number] Primary TAMIA J Maunaloa [address] Insurance:[facility] SENZDOB: [place] [id number][place] [facility] [id number] Hospital [address]Ufz: (330) Number: Repository [phone] () [id number] Date:9679-20-29ZH [address] [address]KG: 09/09/2018 Secondary NOT GIVENUNK Maunaloa Insurance:SELF PAY [facility] Number: Effective Repository Date:2018-09-09 09/02/2018 TAMIA J [id number] Primary TAMIA J Kinjal [address] Insurance:[facility] SENZDOB: Community [id number][place] [facility] [id number] Hospital [address]Hvv: (330) Number: Repository [phone] () [id number] Date:4502-28-42AD [address] [address]ZY: 09/02/2018 Secondary NOT GIVENUNK Kinjal Insurance:SELF PAY [facility] Number: Effective Repository Date:2018-09-02 09/02/2018 TAMIA J [id number] Primary TAMIA J Kinjal [address] Insurance:[facility] SENZDOB: Community [id number][place] [facility] [id number] Hospital [address]Lne: (330) Number: Repository [phone] () [id number] Date:0910-94-75OD[address] [address]JX: 09/02/2018 Secondary NOT GIVENUNK Maunaloa Insurance:SELF PAY [facility] Number: Effective Repository Date:2018-09-02 09/02/2018 TAMIA J [id number] Primary TAMIA J Maunaloa [address] Insurance:[facility] SENZDOB: Community [id number][place] [facility] [id number] Hospital [address]Jww: (330) Number: Repository [phone] () [id number] Date:3125-29-14SS [address] [address]TW: 09/02/2018 Secondary NOT GIVENUNK Kinjal Insurance:SELF PAY [facility] Number: Effective Repository Date:2018-09-02 08/31/2018 TAMIA J [id number] Primary TAMIA J Kinjal [address] Insurance:[facility] SENZDOB: [place] [id number][place] [facility] [id number] Hospital [address]Qxq: (330) Number: Repository [phone] () [id number] Date:2322-41-47[address] [address]VH: 08/31/2018 Secondary NOT GIVENUNK Maunaloa Insurance:SELF PAY [facility] Number: Effective Repository Date:2018-08-31 08/31/2018 TAMIA J [id number] Primary TAMIA J Kinjal [address] Insurance:[facility] SENZDOB: Community [id number][place] [facility] [id number] Hospital [address]Vjt: (330) Number: Repository [phone] () [id number] Date:9119-79-64DA[address] [address]YG: 08/31/2018 Secondary NOT GIVENUNK Maunaloa Insurance:SELF PAY [facility] Number: Effective Repository Date:2018-08-22 08/13/2018 TAMIA J [id number] Primary TAMIA J Maunaloa [address] Insurance:[facility] SENZDOB: Community [id number][place] [facility] [id number] Hospital [address]Mwn: (330) Number: Repository [phone] () [id number] Date:0815-28-84CE[address] [address]AK: 08/13/2018 Secondary NOT GIVENUNK Kinjal Insurance:SELF PAY [facility] Number: Effective Repository Date:2018-08-13 08/11/2018 TAMIA J [id number] Primary TAMIA J Kinjal [address] Insurance:[facility] SENZDOB: [place] [id number][place] [facility] [id number] Hospital [address]Htu: (330) Number: Repository [phone] () [id number] Date:7192-50-13YY [address] [address]II: 08/11/2018 Secondary NOT GIVENUNK Maunaloa Insurance:SELF PAY [facility] Number: Effective Repository Date:2018-08-11 08/05/2018 TAMIA J [id number] Primary TAMIA J Kinjal [address] Insurance:[facility] SENZDOB: Community [id number][place] [facility] [id number] Hospital [address]Gis: (330) Number: Repository [phone] () [id number] Date:8921-70-53TX [address] [address]TQ: 08/05/2018 Secondary NOT GIVENUNK Kinjal Insurance:SELF PAY [facility] Number: Effective Repository Date:2018-08-05 08/05/2018 TAMIA J [id number] Primary TAMIA J Kinjal [address] Insurance:[facility] SENZDOB: [place] [facility] [id number] Hospital [address]Fkj: (330) Number: Repository [phone] () [id number] Date:0929-23-15AR [address] [address]KU: 08/05/2018 Secondary NOT GIVENUNK Maunaloa Insurance:SELF PAY [facility] Number: Effective Repository Date:2018-08-05 08/05/2018 TAMIA J [id number] Primary TAMIA J Kinjal [address] Insurance:[facility] SENZDOB: [place] [id number][place] [facility] [id number] Hospital [address]Jey: (330) Number: Repository [phone] () [id number] Date:2046-23-98AD [address] [address]UP: 08/05/2018 Secondary NOT GIVENUNK Maunaloa Insurance:SELF PAY [facility] Number: Effective Repository Date:2018-08-05 07/25/2018 TAMIA J [id number] Primary TAMIA J Kinjal [address] Insurance:[facility] SENZDOB: [place] [id number][place] [facility] [id number] Hospital [address]Wcg: (330) Number: Repository [phone] () [id number] Date:9795-75-46MO [address] [address]SC: 07/25/2018 Secondary NOT GIVENUNK Maunaloa Insurance:SELF PAY [facility] Number: Effective Repository Date:2018-07-25 07/25/2018 TAMIA J [id number] Primary TAMIA Jennifer [address] Insurance:[facility] SENZDOB: Community [id number][place] [facility] [id number] Hospital [address]Yng: (330) Number: Repository [phone] () [id number] Date:3243-17-89UG [address] [address]IL: 07/25/2018 Secondary NOT GIVENUNK Kinjal Insurance:SELF PAY [facility] Number: Effective Repository Date:2018-07-25 07/25/2018 TAMIA J [id number] Primary TAMIA J Kinjal [address] Insurance:[facility] SENZDOB: Community [id number][place] [facility] [id number] Hospital [address]Dwz: (330) Number: Repository [phone] () [id number] Date:6018-88-79BX[address] [address]FT: 07/25/2018 Secondary NOT GIVENUNK Maunaloa Insurance:SELF PAY [facility] Number: Effective Repository Date:2018-07-25 07/22/2018 TAMIA J [id number] Primary TAMIA J Kinjal [address] Insurance:[facility] SENZDOB: [place] [id number][place] [facility] [id number] Hospital [address]Lfb: (330) Number: Repository [phone] () [id number] Date:3058-17-80XZ[address] [address]JX: 07/22/2018 Secondary NOT GIVENUNK Maunaloa Insurance:SELF PAY [facility] Number: Effective Repository Date:2018-07-22 05/17/2018 TAMIA J [id number] Primary TAMIA J Kinjal [address] Insurance:[facility] SENZDOB: [place] [facility] [id number] Hospital [address]Vyw: (330) Number: Repository [phone] () [id number] Date:9822-47-11VO[address] [address]QB: 05/17/2018 Secondary NOT GIVENUNK Maunaloa Insurance:SELF PAY [facility] Number: Effective Repository Date:2018-05-17 05/17/2018 TAMIA J [id number] Primary TAMIA J Kinjal [address] Insurance:[facility] SENZDOB: [place] [facility] [id number] Hospital [address]Jhq: (330) Number: Repository [phone] () [id number] Date:3526-69-01KR[address] [address]VE: 05/17/2018 Secondary NOT GIVENUNK Kinjal Insurance:SELF PAY [facility] Number: Effective Repository Date:2018-05-17 05/17/2018 TAMIA J [id number] Primary TAMIA J Kinjal [address] Insurance:[facility] SENZDOB: [place] [facility] [id number] Hospital 395[address]Avq: (330) Number: Repository [phone] () [id number] Date:9658-12-53WX[address] [address]FD: 05/17/2018 Secondary NOT GIVENUNK Kinjal Insurance:SELF PAY [facility] Number: Effective Repository Date:2018-05-17 04/13/2018 TAMIA J [id number] Primary TAMIA J Kinjal [address] Insurance:[facility] SENZDOB: [place] [facility] [id number] [id number]: (330) Number: Repository [phone] () [id number] Date:2261-27-77NN [address] [address]SX: 04/13/2018 Secondary NOT GIVENUNK Maunaloa Insurance:SELF PAY [facility] Number: Effective Repository Date:2018-01-19 04/04/2018 TAMIA J [id number] Primary TAMIA J Kinjal [address] Insurance:[facility] SENZDOB: [place] [facility] [id number] Hospital [address]Mqq: (330) Number: Repository [phone] () [id number] Date:8341-33-70SM[address] [address]GO: 04/04/2018 Secondary NOT GIVENUNK Maunaloa Insurance:SELF PAY [facility] Number: Effective Repository Date:2018-04-04 04/04/2018 TAMIA J [id number] Primary TAMIA J Maunaloa [address] Insurance:[facility] SENZDOB: [place] [facility] [id number] Hospital [address]Qhn: (330) Number: Repository [phone] () [id number] Date:0653-30-48KZ [address] [address]CT: 04/04/2018 Secondary NOT GIVENUNK Maunaloa Insurance:SELF PAY [facility] Number: Effective Repository Date:2018-04-04 04/04/2018 TAMIA J [id number] Primary TAMIA J Maunaloa [address] Insurance[facility] SENZDOB: [place] [facility] [id number] Hospital [address]Rni: (330) Number: Repository [phone] () [id number] Date:9303-57-37GM [address] [address]CD: 04/04/2018 Secondary NOT GIVENUNK Maunaloa Insurance:SELF PAY [facility] Number: Effective Repository Date:2018-04-04 04/04/2018 TAMIA J [id number] Primary TAMIA J Kinjal [address] Insurance:[facility] SENZDOB: [place] [facility] [id number] Hospital [address]Bmw: (330) Number: Repository [phone] () [id number] Date:1963-82-46HR [address] [address]ZC: 04/04/2018 Secondary NOT GIVENUNK Kinjal Insurance:SELF PAY [facility] Number: Effective Repository Date:2018-04-04 04/04/2018 TAMIA J [id number] Primary TAMIA J Kinjal [address] Insurance:[facility] SENZDOB: [place] [facility] [id number] Hospital 76188Mpc: (330) Number: Repository [phone] () [id number] Date:1314-91-30BL [address] [address]DH: 04/04/2018 Secondary NOT GIVENUNK Maunaloa Insurance:SELF PAY [facility] Number: Effective Repository Date:2018-04-04 02/26/2018 TAMIA J SENZDOB: Primary TAMIA J [facility] Insurance:[facility] SENDOB: [facility] [address] [facility] [id number] Repository [place], [place] Number: [address]Cgn: 330 [id number] [phone] (HP) Date: 02/26/2018 Secondary TAMIA J [facility] Insurance:[facility] SENDOB[facility] [id number] Repository Number: [id number] Date: 02/07/2018 Tamia J [id number] Primary Tamia J Maunal[address] Insurance:[facility] SenDOB: [facility] [place] [facility] [id number] Hospital 17[address]Rtq: Number: Repository [phone] [id number] (HP) Date:3119-07-16JB [address] [address]GC: 02/07/2018 Secondary NOT GIVENUNK Kinjal Insurance:SELF PAY [facility] Number: Effective Repository Date:2018-02-07 02/07/2018 TAMIA J [id number] Primary TAMIA J Maunaloa [address] [facility] [place] [facility] [id number] Hospital [address]Lsp: Number: Repository [phone] [id number] (HP) Date:2014-09-01ZC[address] [address]YP: 02/07/2018 Secondary NOT GIVENUNK Maunaloa Insurance:SELF PAY [facility] Number: Effective Repository Date:2018-02-07 02/07/2018 Tamia J [id number] Primary Tamia J Maunal[address] Insurance:[facility] SenzDOB: [place] [facility] [id number] Hospital 222[address]Bcc: Number: Repository [phone] [id number] (HP) Date:4339-67-12FG[address] [address]EG: 02/07/2018 Secondary NOT GIVENUNK Maunaloa Insurance:SELF PAY [facility] Number: Effective Repository Date:2018-02-07 02/07/2018 Tamia J [id number] Primary Tamia J Kinj[address] Insurance:[facility] SenzDOB: [place] [facility] [id number] [address]Tel: Number: Repository [phone] [id number] (HP) Date:7060-00-43PZ[address] [address]LR: 02/07/2018 Secondary NOT GIVENUNK Maunaloa Insurance:SELF PAY [facility] Number: Effective Repository Date:2018-02-07 02/07/2018 TAMIA J [id number] Primary TAMIA J Maunaloa [address] Insurance:[facility] SENZDOB: [place] [facility] [id number] [place] [address]Tel: Number: Repository [phone] [id number] (HP) Date:7946-08-47BY[address] [address]RM: 02/07/2018 Secondary NOT GIVENUNK Maunaloa Insurance:SELF PAY [facility] Number: Effective Repository Date:2018-02-07 02/07/2018 TAMIA J [id number] Primary TAMIA J Maunaloa [address] Insurance:[facility] SENZDOB: [place] [facility] [id number] [place] [id number]: Number: Repository [phone] [id number] (HP) Date:0431-26-04JI [address] [address]DW: 02/07/2018 Secondary NOT GIVENUNK Maunaloa Insurance:SELF PAY [facility] Number: Effective Repository Date:2018-02-07 02/03/2018 Tamia J [id number] Primary Tamia J Maunal[address] Insurance:[facility] SenzDOB: [place] [facility] [id number] Hospital [address]Sqb: Number: Repository [phone] [id number] (HP) Date:7173-59-92UD [address] [address]IH: 02/03/2018 Secondary NOT GIVENUNK Maunaloa Insurance:SELF PAY [facility] Number: Effective Repository Date:2018-02-03 02/03/2018 Tamia J [id number] Primary Tamia J Maunal[address] Insurance:[facility] SenzDOB: [place] [facility] [id number] Hospital [address]Nlz: Number: Repository [phone] [id number] (HP) Date:7670-57-12PU [address] [address]UD: 02/03/2018 Secondary NOT GIVENUNK Maunaloa Insurance:SELF PAY [facility] Number: Effective Repository Date:2018-02-03 02/03/2018 Tamia J [id number] Primary Tamia J Maunal[address] Insurance:[facility] SenzDOB: [place] [facility] [id number] Hospital [address]Sez: Number: Repository [phone] [id number] (HP) Date:9877-45-30YS [address] [address]OQ: 02/03/2018 Secondary NOT GIVENUNK Maunaloa Insurance:SELF PAY [facility] Number: Effective Repository Date:2018-02-03 02/03/2018 Tamia J [id number] Primary Tamia J Maunal[address] Insurance:[facility] SenzDOB: [place] [facility] [id number] Hospital [address]Bnp: Number: Repository [phone] [id number] (HP) Date:9250-03-68BB [address] [address]AL: 02/03/2018 Secondary NOT GIVENUNK Kinjal Insurance:SELF PAY [facility] Number: Effective Repository Date:2018-02-03 02/03/2018 Tamia J [id number] Primary Tamia J Kinjal [address] Insurance:[facility] SenzDOB: [facility] [place] [facility] [id number] Hospital 225[address]Qpm: Number: Repository [phone] [id number] (HP) Date:6483-12-05QT [address] [address]JR: 02/03/2018 Secondary NOT GIVENUNK Maunaloa Insurance:SELF PAY [facility] Number: Effective Repository Date:2018-02-03 02/03/2018 Tamia J [id number] Primary Tamia J Maunal[address] Insurance:[facility] SenzDOB: [facility] [place] [facility] [id number] Hospital [address]Drc: Number: Repository [phone] [id number] (HP) Date:[id number] [address] [address]QR: 02/03/2018 Secondary NOT GIVENUNK Kinjal Insurance:SELF PAY [facility] Number: Effective Repository Date:2018-02-03 02/03/2018 TAMIA J [id number] Primary TAMIA J [place] [address] Insurance:[facility] SENZDOB: [facility] [place] [facility] [id number] [facility] [address]Ggs: Number: Repository [phone] [id number] (HP) Date:[id number] [address] [address]GU: 02/03/2018 Secondary NOT GIVENUNK [place] Insurance:SELF PAY [facility] Number: Effective Repository Date:2018-02-03 02/03/2018 Tamia J [id number] Primary Tamia J [place] [address] Insurance:[facility] SenzDOB[place] [facility] [id number] [address]Lgp: Number: Repository [phone] [id number] (HP) Date:[id number] [address] [address]BH: 02/03/2018 Secondary NOT GIVENUNK [place] Insurance:SELF PAY [facility] [facility] Number: Effective Repository Date:2018-02-03 02/03/2018 Tamia J [id number] Primary Tamia J [address] Insurance:[facility] [place] [facility] [id number] [address]Mbp: Number: Repository [phone] [id number] (HP) Date:7720-91-38IZ [address] [address]CP: 02/03/2018 Secondary NOT GIVENUNK [place] Insurance:SELF PAY [facility] Number: Effective Repository Date:2018-02-03 02/03/2018 Tamia J [id number] Primary Tamia J [address] Insurance:[facility] SenzDOB: [place] [facility] [id number] [address]Vnt: Number: Repository [phone] [id number] (HP) Date:0035-94-03HY [address] [address]VW: 02/03/2018 Secondary NOT GIVENUNK [place] Insurance:SELF PAY [facility] Number: Effective Repository Date:2018-02-03 01/15/2018 Tamia J [id number] Primary Tamia J [place] [address] Insurance:[facility] SenzDOB: [place] [facility] [id number] [facility] [address]Fsf: Number: Repository [phone] [id number] (HP) Date:5763-30-12ZG [address] [address]XA: 01/15/2018 Secondary NOT GIVENUNK [place] Insurance:SELF PAY [facility] Number: Effective Repository Date:2018-01-15 01/02/2018 Tamia J [id number] Primary Tamia J [place] [address] Insurance:[facility] SenzDOB: [place] [facility] [id number] [facility] [address]Hav: Number: Repository [phone] [id number] (HP) Date:9782-91-81FN [address] [address]KS: 01/02/2018 Secondary NOT GIVENUNK [place] Insurance:SELF PAY [facility] Number: Effective Repository Date:2018-01-02 01/02/2018 Tamia J [id number] Primary Tamia J [place] [address] Insurance:[facility] SenzDOB: [place] [facility] [id number] [facility] [address]Sdn: Number: Repository [phone] [id number] (HP) Date:8450-03-95KT [address] [address]SW: 01/02/2018 Secondary NOT GIVENUNK [place] Insurance:SELF PAY [facility] Number: Effective Repository Date:2018-01-02 01/02/2018 Tamia J [id number] Primary Tamia J [address] Insurance:[facility] Sen[place]DOB[place] [facility] [id number] [address]Cdk: Number: Repository [phone] [id number] (HP) Date:9016-48-93OG [address] [address]NG: 01/02/2018 Secondary NOT GIVENUNK [place] Insurance:SELF PAY [facility] Number: Effective Repository Date:2018-01-02 01/02/2018 Tamia J [id number] Primary Tamia J [address] Insurance:[facility] SenzDOB: [place] [facility] [id number] [id number]: Number: Repository [phone] [id number] (HP) Date:2103-14-92UG [address] [address]LN: 01/02/2018 Secondary NOT GIVENUNK [place] Insurance:SELF PAY [facility] Number: Effective Repository Date:2018-01-02 12/23/2017 Tamia J [id number] Primary Tamia J [address] Insurance:[facility] SenzDOB: [place] [facility] [id number] [id number]: Number: Repository [phone] [id number] (HP) Date:4899-94-56SB [address] [address]TM: 12/23/2017 Secondary NOT GIVENUNK [place] Insurance:SELF PAY [facility] Number: Effective Repository Date:2017-12-23 12/23/2017 Tamia J [id number] Primary Tamia J [address] Insurance:[facility] SenzDOB: [place] [facility] [id number] [facility] [address]Tsx: Number: Repository [phone] [id number] (HP) Date:4559-62-99YY [address] [address]NE: 12/23/2017 Secondary NOT GIVENUNK [place] Insurance:SELF PAY [facility] Number: Effective Repository Date:2017-12-18 12/18/2017 TAMIA J SENZDOB: Primary TAMIA J [facility] Insurance:[facility] [address] [facility] [id number] Repository MARIA GU[place], SARAH Number: [id number]: [phone] [id number] [phone] (HP) Date: 12/18/2017 Secondary TAMIA J [facility] Insurance:[facility] [id number] Repository Number: [id number] Date: 12/17/2017 Tamia J [id number] Primary Tamia J [place] [address] Insurance:[facility] SenzDOB: [place] [facility] 2017-22-29ZTC [facility] [address]Ifx: Number: Repository [phone] [id number] (HP) Date:8604-47-44NS [address] [address]FX: 12/17/2017 Secondary NOT GIVENUNK [place] Insurance:SELF PAY [facility] Number: Effective Repository Date:2017-12-17 12/17/2017 Tamia J [id number] Primary Tamia J [place] [address] Insurance:[facility] SenDOB: [place] [facility] [id number] Hospital [address]Chd: Number: Repository [phone] [id number] (HP) Date:9639-56-28NC [address] [address]YH: 12/17/2017 Secondary NOT GIVENUNK [place] Insurance:SELF PAY [facility] Number: Effective Repository Date:2017-12-16 12/16/2017 TAMIA J SENZDOB: Primary TAMIA J [facility] Insurance:[facility] SENDOB: [facility] [address] [facility] [id number] Repository SARAH LERMA Number: [id number]: 330 [id number] [phone] (HP) Date: 12/16/2017 Secondary TAMIA J [facility] [id number] Repository Number: [id number] Date: 12/11/2017 Tamia J [id number] Primary Tamia J [place] [address] [facility] [place]ah [place] *[place] [facility] [id number] Hospital [address]Dfl: Number: Repository [phone] [id number] (HP) Date:8488-15-76NJ [address] [address]LY: 12/11/2017 Secondary NOT GIVENUNK [place] Insurance:SELF PAY [facility] Number: Effective Repository Date:2017-11-18 11/24/2017 Tamia J [id number] Primary Tamia J [place] [address] [facility] [place] [facility] [id number] Hospital [address]Znr: Number: Repository [phone] [id number] (HP) Date:1797-28-35YI [address] [address]EK: 11/24/2017 Secondary NOT GIVENUNK [place] Insurance:SELF PAY [facility] Number: Effective Repository Date:2017-10-21 10/16/2017 Tamia J [id number] Primary Tamia J [address] Insurance:[employer] SenzDOB: [place] [facility] [id number] Hospital [address]Das: Number: Repository [phone] [id number] (HP) Date:5244-05-21YM [address] [address]II: 10/16/2017 Secondary NOT GIVENUNK [place] Insurance:SELF PAY [facility] Number: Effective Repository Date:2017-10-16 10/16/2017 Tamia J [id number] Primary Tamia J [place] [address] Insurance:[facility] SenzDOB: [place] [facility] [id number] [facility] [address]Mkh: Number: Repository [phone] [id number] (HP) Date:3923-27-38VM [address] [address]PQ: 10/16/2017 Secondary NOT GIVENUNK [place] Insurance:SELF PAY [facility] Number: Effective Repository Date:2017-10-16 10/16/2017 Tamia J [id number] Primary Tamia J [address] Insurance:[facility] SenzDOB: [place] [facility] [id number] Hospital [address]Inr: Number: Repository [phone] [id number] (HP) Date:3686-73-46WX [address] [address]BW: 10/16/2017 Secondary NOT GIVENUNK [place] Insurance:SELF PAY [facility] Number: Effective Repository Date:2017-10-16
== END 2018-09-03 11:32 | disposition home or self-care (01) ==
LOC: ED 14:49 → PCU 09-03 06:08
PROVIDERS: Admitting Provider Internal Medicine; Emergency Provider Emergency Medicine; Family Provider Family Medicine; PCP Family Medicine; Referring Provider Internal Medicine
DX: G92 Toxic encephalopathy (principal); E87.6 Hypokalemia; E87.4 Mixed disorder of acid-base balance; I48.0 Paroxysmal atrial fibrillation; E03.9 Hypothyroidism, unspecified; Z79.899 Other long term (current) drug therapy; Z79.4 Long term (current) use of insulin; Z79.01 Long term (current) use of anticoagulants; Z79.82 Long term (current) use of aspirin; K21.9 Gastro-esophageal reflux disease without esophagitis; Z99.81 Dependence on supplemental oxygen; G47.33 Obstructive sleep apnea (adult) (pediatric); I25.10 Atherosclerotic heart disease of native coronary artery without angina pectoris; E78.5 Hyperlipidemia, unspecified; E11.9 Type 2 diabetes mellitus without complications; Z95.5 Presence of coronary angioplasty implant and graft; I10 Essential (primary) hypertension; J44.9 Chronic obstructive pulmonary disease, unspecified; J96.12 Chronic respiratory failure with hypercapnia; J96.11 Chronic respiratory failure with hypoxia; Z91.19 Patient's noncompliance with other medical treatment and regimen; E66.9 Obesity, unspecified; Z68.38 Body mass index [BMI] 38.0-38.9, adult; Z71.3 Dietary counseling and surveillance; R47.81 Slurred speech; Z87.891 Personal history of nicotine dependence
CPT/HCPCS: 36415; 36600; 70450; 70496; 70498; 70551; 71045; 80048; 80053; 81001; 82140; 82803; 82962; 83036; 83735; 83880; 84100; 84443; 84484; 85025; 85027; 93005; 94640; 96361; 96374; 96376; 97802; 99218; 99285; J7030; P9612; Q9967; A4216; G0378

== ENCOUNTER 2018-09-09 16:46 | Inpatient (IN) | payer MEDICARE, SELFPAY ==
[2018-09-02 17:10] VITALS: BMI 37.1
[2018-09-09] VITALS (13 sets, daily range): BP systolic 98–132; BP diastolic 57–82; PULSE 62–127; RESP 16–24; TEMP 36.4–36.6; O2SAT 94–100; BMI 38.4; BMI 37.5
[2018-09-09 17:11] LABS: Bedside Glucose 263 mg/dL (70-110)
--- NOTE | 2018-09-09 17:15 | RAD_ITS ---
STUDY: X-RAY CHEST REASON FOR EXAM: Female, 63 years old. Weakness TECHNIQUE: Frontal views COMPARISON: September 02, 2018 FINDINGS: The lungs are not fully expanded. There is a right upper lobe medial opacity. An infiltrate cannot be excluded.. Cardiomegaly. Normal mediastinum and tracie. Normal visualized pulmonary arteries. Normal visualized aortic arch and descending thoracic aorta. Degenerative changes of the thoracic spine. Normal visualized ribs, clavicles, and shoulders. There is no demonstrated abnormality of the visualized soft tissue structures of the upper abdomen. RAD/Chest 1 View (Portable) IMPRESSION: Possible right upper lobe infiltrate medially. Cardiomegaly. Electronically Signed: Rashaun Glasgow DO at 18:25 EST Tel [phone], Service support ,
--- NOTE | 2018-09-09 17:15 | EKG12_ITS ---
Test Reason : SOB Blood Pressure : / mmHG Vent. Rate : 105 BPM Atrial Rate : 312 BPM P-R Int : 000 ms QRS Dur : 092 ms QT Int : 380 ms P-R-T Axes : 000 -24 155 degrees QTc Int : 502 ms Atrial fibrillation with rapid ventricular response Minimal voltage criteria for LVH, may be normal variant ST & T wave abnormality, consider lateral ischemia Abnormal ECG Confirmed by ALETA ABRAHAM, ALVAREZ ([id number]), photo editor SHYANNE TERRAZAS ([id number]) on 09/11/2018 1:57:01 PM Referred By: Annamarie Andrews Confirmed By:ALVAREZ RIVER MD
--- NOTE | 2018-09-09 17:17 | CT_ITS ---
STUDY: CT BRAIN WITHOUT CONTRAST REASON FOR EXAM: Female, 63 years old. Altered mental status RADIATION DOSAGE (If Supplied By Facility): CTDIvol = ( 44.99 ) mGy, DLP = ( 745.49 ) mGycm TECHNIQUE: Transaxial CT imaging of the brain was performed without administration of intravenous contrast material. Individualized dose optimization techniques were used for this CT. COMPARISON: CT and CTA head September 02, 2018 and MR brain September 03, 2018 FINDINGS: Normal soft tissue structures. Normal calvarium. Normal size ventricles and extra-axial spaces for the patient's age. Normal white matter tracts of the cerebral hemispheres. Normal basal ganglia and thalami. Normal brainstem. Normal cerebellum. Disconjugate gaze. Bilateral lens implants. There is no intracranial hemorrhage. There are no findings of an acute ischemic infarction. Normal visualized paranasal sinuses. CT/Brain/Head without Contrast IMPRESSION: Normal unenhanced CT scan of the brain. Electronically Signed: Kamari Andino MD at 18:08 EST , Service support ,
[2018-09-09 17:32] LABS: Absolute Lymphocyte Count 1.42 X10^3/ul (0.83-4.51); Absolute Neutrophil Count 3.2 X10^3/uL (2.0-7.7); Basophil# 0.02 X10^3/uL; Basophil% 0.4 % (0-1); Eosinophil# 0.29 X10^3/uL; Eosinophils% 5.3 % (0-5); Lymphocyte # 1.42 X10^3/ul (4.0); Lymphocyte % 25.9 % (19-41); Mean Corpuscular Hgb 28.4 pg (27.0-32.0); Mean Corpuscular Volume 91.9 fL (81-99); Mean Platelet Vol. 10.7 fl (6.2-12.0); Monocyte# 0.53 X10^3/uL; Monocyte% 9.7 % (0-10); Neutrophil # 3.22 X10^3/uL (2.7-7.7); Neutrophil % 58.7 % (47-70); Platelet Count 205 K/mm3 (150-450); RBC Distribution Width CV 16.4 % (11.6-14.6); RBC Distribution Width SD 54.8 fl (35.1-43.9); Red Blood Count 4.57 M/mm3 (4.2-5.4); White Blood Count 5.5 K/mm3 (4.4-11.0)
--- NOTE | 2018-09-09 17:44 | ED.VISSUMM ---
- ER Visit Summary Date of Service: 09/09/18 Chief Complaint: [] Generalized weakness days History of Present Illness: The patient is a 63 F [] those symptoms for days the patient is a very vague historian she simply states she has whole body generalized fatigue she has had a cough for months, she is noted to have A. fib on the monitor she is not sure if she has that condition at baseline, she denies head neck chest or abdominal pain simply cannot function at home due to generalized fatigue no fever no cough she believes she has had normal bowel bladder habits Physical Examination: [] She appears sleepy but easily arousable her blood pressure is 115/75 her pulse ox is 97% 2 L nasal cannula, she is afebrile General, no distress resting comfortably HEENT is generally unremarkable The neck is supple no adenopathy Cardiovascular, irregular rate and rhythm, rate about 130 Lungs, clear bilateral Abdomen, soft nontender Extremities, no clubbing cyanosis or edema Neurologic, awake alert answering questions appropriately moving all 4 extremities she basically is hunched over from what appears to be scoliosis she is awake alert answering all questions Test Results: [] Emergency Department Course and Treatment: [] He is unclear she does have A. fib heart rate is about 130 Patient's chest x-ray per radiology shows appears to be a right-sided infiltrate pneumonia, the head CT and her labs are generally unremarkable see those reports at this time given all the above and A. fib RVR have asked the hospital see her further management admission Treatment Plan: [] Disposition: [] Admits stable Impression: [] Pneumonia, A. fib RVR, generalized weakness This note was generated with [employer] dictation software. It may contain incorrect words, spelling, and punctuation that were not noted in review of the chart prior to signing ED Disposition - Plan for ED Patient: Chief Complaint: Weakness Referrals: Bhupendra Oliveira MD [Primary Care Provider] -
[2018-09-09 17:50] LABS: POSITIVE COUNT NO; POSITIVE DIFFERENTIAL NO; POSITIVE MORPHOLOGY NO
[2018-09-09 17:51] LABS: Anion Gap 6 (5-15); BUN 19 mg/dL (7-18); BUN/Creat Ratio 17.3 RATIO (10-20); Calcium,Total 8.7 mg/dL (8.5-10.1); Chloride 100 mmol/L (98-107); EST Glomerular Filtration Rate 53 mL/min (>60); Est Glom Filt Rate - Afr Amer 64 mL/min (>60); Glucose 253 mg/dL (74-106); Lipase 51 U/L (73-393); Potassium 3.7 mmol/L (3.5-5.1); Sodium Level 138 mmol/L (136-145)
[2018-09-09 17:57] LABS: AST(SGOT) 23 U/L (15-37); Alanine Aminotransfer ALT/SGPT 21 U/L (13-56); Albumin, Serum 3.3 g/dL (3.2-5.0); Alkaline Phosphatase 59 U/L (45-117); Bilirubin, Direct 0.23 mg/dL (0.00-0.30); Protein, Total 7.3 g/dL (6.4-8.2)
--- NOTE | 2018-09-09 17:58 | ED.RN ---
spoke with md regarding giving pt cardizem with low bp, per md only give 5mg of the cardizem.
[2018-09-09 18:01] LABS: Allen Test POS; Base Excess 8 mmol/L (-2 to +2); Bicarbonate 32.6 mmol/L (22-26); Blood Gas Specimen Type ART; O2 Delivery Device Nasal Can; PO2 77 mmHG (75-100); SITE R Radial; SO2 95 % (95-99); Time Given 1750; Total Carbon Dioxide 34 mmol/L; pCO2 54.7 mmHg (35-45); pH 7.38 (7.35-7.45)
[2018-09-09] MEDS: dilTIAZem 25 MG/5 ML Vial 10 MG IV BOLUS (18:02)
[2018-09-09 18:04] LABS: BNP,B-Type NATRIURETIC PEPTIDE 124.8 pg/mL (0-100)
[2018-09-09 18:50] LABS: Bacteria 0 SEEN /hpf (None Seen); Mucous, Urine 0 SEEN /hpf (<or=2+); Red Blood Cells-Urine 0 SEEN /hpf (0-5); Squamous Epithelial Cells - UA 0 SEEN /hpf (5-10); White Blood Cells 0 SEEN /hpf (0-5)
[2018-09-09 18:56] LABS: Color, Urine Yellow (Yellow); Glucose, Dipstick Normal (Normal); Ketone-Dipstick Negative (Negative); Leukocyte Esterase-Dipstick Negative /ul (Negative); Nitrite-Dipstick Negative (Negative); Occult Blood-Urine Negative /ul (Negative); Protein-Dipstick Negative (Negative); Urine Bilirubin Dipstick Negative (Negative); Urine Clarity Clear (Clear); Urine Urobilinogen Normal (Normal)
[2018-09-09] MEDS: Ceftriaxone 1 GM/50 ML BAG IV (19:59)
--- NOTE | 2018-09-09 20:02 | HP.PCM_ITS ---
History of Present Illness Date of Admission: 09/09/18 Chief Complaint: cough The patient is a 63 year old F with an extensive past medical history as listed below. She was admitted through the ED on 09/09/2018 with complaint of a cough and generalized malaise. She was confused and lethargic and a poor historian. All she could say was that she had been having a productive cough for a few days; she denied any fever or chills, any chest pain, SOB, abdominal pain, diarrhea or vomiting. Review of systems was otherwise negative. She admits to having sleep apnea, but cannot say whether she has been using the PARESH. In the ED, vitals were significant for pulse rate of 101 and she was saturating 100% on 2 L of oxygen. BMP showed creatinine of 1.1 and BNP was 124.8. Chest x-ray showed a right-sided infiltrate and head CT were negative. EKG showed A. fib with heart rate been around 130 at time of admission. She is been admitted to be managed for pneumonia and A. fib. [] Past Medical History Past Medical History (Chronic Problems): Chronic Problems Paroxysmal A-fib (Chronic) Diabetes mellitus type 2 in obese (Chronic) Coronary arteriosclerosis (Chronic) cath 05/2015 mild-moderate disease medical therapy recommended Hypothyroidism (Chronic) Hyperlipemia (Chronic) GERD (gastroesophageal reflux disease) (Chronic) Hypertension (Chronic) COPD (chronic obstructive pulmonary disease) (Chronic) Chronic respiratory insufficiency (Chronic) On home oxygen at night S/P PTCA (percutaneous transluminal coronary angioplasty) (Chronic) PARESH (obstructive sleep apnea) (Chronic) non-complaint with CPAP Allergies ciprofloxacin [From Cipro] Allergy (Verified 09/09/18 17:02) Hives latex Allergy (Verified 09/09/18 17:02) matos me niacin [From Niaspan Extended-Release] Allergy (Verified 09/09/18 17:02) Hives ondansetron [From Zofran] Allergy (Verified 09/09/18 17:02) Unknown Xanthines Allergy (Verified 09/09/18 17:02) Unknown orphenadrine citrate [From Norgesic] Adverse Reaction (Verified 09/09/18 17:02) groggy medical tape Adverse Reaction (Uncoded 09/09/18 17:02) blisters Home Medications: Ambulatory Orders Medication Instructions Recorded Atorvastatin Calcium [Lipitor] 40 mg PO DAILY 02/03/18 Duloxetine Hcl [Cymbalta] 60 mg PO DAILY 02/03/18 Insulin Lispro [Humalog KwikPen] 22 unit SQ LUNCH 02/03/18 Insulin Lispro [Humalog KwikPen] 24 unit SQ DINNER 02/03/18 Insulin Lispro [Humalog] 16 unit SQ BREAKFAST 02/03/18 Isosorbide Mononitrate [Imdur] 90 mg PO DAILY 02/03/18 Levothyroxine [Synthroid] 100 mcg PO DAILY 02/03/18 Apixaban [Eliquis] 2.5 mg PO BID 05/17/18 Ascorbic Acid [Vitamin C] 500 mg PO DAILY@0800 05/17/18 Omeprazole [Prilosec] 20 mg PO DAILY 05/17/18 Ferrous Gluconate 324 mg PO DAILY 07/22/18 Albuterol IH (ProAir) [Proair Hfa] 2 puff INHALATION Q4H PRN PRN 08/05/18 Acetaminophen [Tylenol] 1,000 mg PO Q8 PRN tablet 08/06/18 Aspirin E.C. [Ecotrin] 81 mg PO DAILY@0800 09/02/18 Buspirone HCl [Buspar] 7.5 mg PO BID 09/02/18 Docusate Sodium [Colace] 100 mg PO DAILY 09/02/18 Furosemide [Lasix] 40 mg PO BID 09/02/18 Metoprolol Tartrate [Lopressor 100 mg PO BID 09/02/18 (beta sudhakar)] Sennosides [Senna] 8.6 mg PO BID 09/02/18 Trueplus Glucose Chew 4 tab PO PRN PRN 09/02/18 Surgical History: angioplasty, cholecystectomy, herniorrhaphy, hysterectomy, - - tubal ligation. Psychiatric History: No pertinent psych hx [employer] History: No pertinent [employer] history Lives: Alone Smoking Status: Former smoker - *Family History Sibling History Items: COPD - in sister. Maternal History Items: No pertinent history Paternal History Items: Heart Disease, Stroke - age 62 Offspring History Items: No pertinent history - 5 children, 32 grand children and great grandchildren Review of Systems Constitutional: Reports: Malaise, Weakness, Fatigue. Denies: Chills, Fever, Weight Change Eyes: Denies: Blurred vision HEENT: Denies: Head Aches, Sinus Congestion, Sinus Drainage Cardiovascular: Denies: Chest Pain, Palpitations Respiratory: Reports: Cough. Denies: Shortness of Breath, Shortness of breath at rest, Shortness of breath upon exertion Gastrointestinal: Denies: Abdominal Pain, Nausea, Vomiting Genitourinary: Denies: Dysuria Musculoskeletal: Denies: Joint Pain, Joint Tenderness Skin: Denies: Rash, Wounds Neurological: Denies: Numbness, Tingling, Focal weakness Psychiatric: Denies: Anxiety, Depression, Homicidal Ideations, Suicidal Kasey ations Hematologic/ Lymphatic: Denies: Easy Bruising, Easy Bleeding VTE Information - Inpt Only VTE Present on Admission: No VTE Pharm Prophylaxis ordered?: Yes - Physical Exam General: Alert, Confused, Lethargic HEENT: Atraumatic, PERRLA, EOMI, Normocephalic Oral: Dry Mucosa Neck: Supple, No JVD, Negative Carotid Bruits Lungs: Clear to auscultation, Normal air movement, No rhonchi, No wheeze, No rales Cardiovascular: Normal S1, Normal S2, No murmurs, Irregular Rate Abdomen: Bowel Sounds Present, Soft, Non Tender Extremities: No clubbing, No cyanosis, No edema, Capillary Refill Less than 3 Seconds Skin: No rashes, No breakdown Musculoskeletal: No Tenderness to Palpation of Joints or Extremities Lymphatic: No Cervical, Supraclavicular, or Inguinal Adenopathy Neurological: Cranial nerves II-XII grossly intact, Neuro grossly intact Psych/Mental Status: - - Very lethargic and drowsy Vital Signs Temp Pulse Resp BP Pulse Ox 97.9 F 63 16 103/57 L 94 09/09/18 18:00 09/09/18 18:04 09/09/18 18:04 09/09/18 18:04 09/09/18 18:04 Oxygen Flow Rate (L/min) 1 Oxygen Delivery Method Nasal Cannula Weight: 210 lb Body Mass Index (BMI) 38.4 Finger Stick Blood Glucose 263 Laboratory Tests Past 24 Hrs 09/09/18 09/09/18 09/09/18 17:15 17:15 17:15 WBC 5.5 RBC 4.57 Hgb 13.0 Hct 42.0 MCV 91.9 MCH 28.4 MCHC 31.0 L RDW 16.4 H RDW Differential 54.8 H Plt Count 205 MPV 10.7 Immature Gran % (Auto) 0.000 Neut % (Auto) 58.7 Lymph % (Auto) 25.9 [place] % (Auto) 9.7 Eos % (Auto) 5.3 H Baso % (Auto) 0.4 Absolute Neuts (auto) 3.2 Absolute Lymphs (auto) 1.42 Total Counted Not Reportable Specimen Type Sample Site pH Bicarbonate Actual POC Total CO2 Base Excess O2 Saturation ABG pCO2 ABG pO2 [place] Test O2 Delivery Device Liter Flow Blood Gas Notified Whom Blood Gas Notified Time Sodium 138 Potassium 3.7 Chloride 100 Carbon Dioxide 32.0 Anion Gap 6 BUN 19 H Creatinine 1.10 H Estim Creat Clear Calc 41.40 Est GFR (MDRD) Af Amer 64 Est GFR (MDRD) Non-Af 53 L BUN/Creatinine Ratio 17.3 Glucose 253 H Calcium 8.7 Total Bilirubin 0.90 Direct Bilirubin 0.23 AST 23 ALT 21 Alkaline Phosphatase 59 Troponin I < 0.015 B-Natriuretic Peptide Total Protein 7.3 Albumin 3.3 Globulin 4.0 Lipase 51 L Urine Color Urine Clarity Urine pH Ur Specific [place] Urine Protein Urine Glucose (UA) Urine Ketones Urine Occult Blood Urine Nitrite Urine Bilirubin Urine Urobilinogen Ur Leukocyte Esterase Urine RBC Urine WBC Ur Squamous Epith Cells Urine Bacteria Urine Mucus 09/09/18 09/09/18 09/09/18 17:15 17:58 18:49 WBC RBC Hgb Hct MCV MCH MCHC RDW RDW Differential Plt Count MPV Immature Gran % (Auto) Neut % (Auto) Lymph % (Auto) [place] % (Auto) Eos % (Auto) Baso % (Auto) Absolute Neuts (auto) Absolute Lymphs (auto) Total Counted Specimen Type ART Sample Site R Radial pH 7.38 Bicarbonate Actual 32.6 H POC Total CO2 34 Base Excess 8 H O2 Saturation 95 ABG pCO2 54.7 H ABG pO2 77 [place] Test POS O2 Delivery Device Nasal Can Liter Flow 1.0 Blood Gas Notified Whom ED Blood Gas Notified Time 1750 Sodium Potassium Chloride Carbon Dioxide Anion Gap BUN Creatinine Estim Creat Clear Calc Est GFR (MDRD) Af Amer Est GFR (MDRD) Non-Af BUN/Creatinine Ratio Glucose Calcium Total Bilirubin Direct Bilirubin AST ALT Alkaline Phosphatase Troponin I B-Natriuretic Peptide 124.8 H Total Protein Albumin Globulin Lipase Urine Color Yellow Urine Clarity Clear Urine pH 6.0 Ur Specific [place] 1.010 Urine Protein Negative Urine Glucose (UA) Normal Urine Ketones Negative Urine Occult Blood Negative Urine Nitrite Negative Urine Bilirubin Negative Urine Urobilinogen Normal Ur Leukocyte Esterase Negative Urine RBC 0 SEEN Urine WBC 0 SEEN Ur Squamous Epith Cells 0 SEEN Urine Bacteria 0 SEEN Urine Mucus 0 SEEN POC Glucose 09/09/18 17:00 POC Glucose 263 H Diagnostic Data Chest X-Ray 09/09/18 17:15 IMPRESSION: Possible right upper lobe infiltrate medially. Cardiomegaly. Electronically Signed: Rashaun Glasgow DO at 18:25 EST Tel [phone], Service support , Brain CT 09/09/18 17:17 IMPRESSION: Normal unenhanced CT scan of the brain. Electronically Signed: Kamari Andino MD at 18:08 EST , Service support , Assessment/Plan All Active Problems Toxic encephalopathy (Acute) Hypokalemia (Acute) Metabolic alkalosis (Acute) Abnormal nuclear stress test (Resolved) Bradycardia (Resolved) Pneumonia (Resolved) Septic shock (Resolved) Toxic encephalopathy (Resolved) 63-year-old female admitted with a complaint of fatigue and cough. 1. Acute metabolic encephalopathy due to pneumonia * patient very drowsy and lethargic; is confused but able to answer questions on arousal * CT head was negative * ABG done didnt show any elevated pCO2, ruling out CO2 narcosis * CXR showed right sided infiltrate * admit to pCU with telemetry * IVF NS @ 150cc/hr * give IV ceftriaxonea nd IV azithromycin for community acquired pneumonia * 2. Community acquired pneumonia * as under 1. * check respiratory panel 3. Acute renal insufficiency: Cr is 1.1. baseline is ~0.8-0.9. Doesnt meet criteria for TITI. Will hydrate and monitor 4. Hypothyroidism: On Synthroid. 5. A. fib: * Heart rate was initially elevated on admission but is now controlled after being given a dose of IV cardizem * On metoprolol 100 mg twice daily and Eliquis. * 6. Anxiety: on buspar 7. GERD: on PPI 8. CAD: on aspirin, metoprolol and statin 9. COPD: on breathing treatments DVT prophylaxis: on eliquis * Code Visit Inpatient E&M: 75633 Init Hosp L3
[2018-09-09] MEDS: Metoprolol Tartrate 100 MG Tablet PO (22:39)
[2018-09-09] MEDS: busPIRone 15 MG TABLET 7.5 MG PO (22:39)
[2018-09-09] MEDS: APIXABAN 2.5 MG TABLET PO (22:39)
[2018-09-09 23:45] LABS: Bedside Glucose 220 mg/dL (70-110)
[2018-09-10] VITALS (13 sets, daily range): BP systolic 111–135; BP diastolic 52–67; PULSE 72–118; RESP 16–18; TEMP 36.6–37; O2SAT 96–100
[2018-09-10] MEDS: Insulin Lispro 100 UNIT/ML INSULN.PEN SC ×5 (02:04→21:43)
[2018-09-10 02:06] LABS: Bedside Glucose 188 mg/dL (70-110)
[2018-09-10] MEDS: Levothyroxine 100 MCG Tablet PO (05:24)
[2018-09-10 06:56] LABS: Bedside Glucose 187 mg/dL (70-110)
[2018-09-10 07:17] LABS: Absolute Lymphocyte Count 1.12 X10^3/ul (0.83-4.51); Absolute Neutrophil Count 3.6 X10^3/uL (2.0-7.7); Basophil# 0.01 X10^3/uL; Basophil% 0.2 % (0-1); Eosinophil# 0.32 X10^3/uL; Eosinophils% 5.7 % (0-5); Hematocrit 42.5 % (37-47); Hemoglobin 13.1 g/dl (12.0-15.0); Lymphocyte # 1.12 X10^3/ul (4.0); Mean Corp Hgb Conc 30.8 g/gl (32-36); Mean Corpuscular Hgb 28.3 pg (27.0-32.0); Mean Corpuscular Volume 91.8 fL (81-99); Mean Platelet Vol. 10.6 fl (6.2-12.0); Monocyte# 0.54 X10^3/uL; Monocyte% 9.6 % (0-10); Neutrophil % 64.3 % (47-70); Platelet Count 175 K/mm3 (150-450); RBC Distribution Width CV 16.3 % (11.6-14.6); RBC Distribution Width SD 54.1 fl (35.1-43.9); Red Blood Count 4.63 M/mm3 (4.2-5.4); White Blood Count 5.6 K/mm3 (4.4-11.0)
[2018-09-10 07:18] LABS: POSITIVE COUNT NO; POSITIVE DIFFERENTIAL NO; POSITIVE MORPHOLOGY NO
[2018-09-10 07:34] LABS: Anion Gap 10 (5-15); BUN 17 mg/dL (7-18); BUN/Creat Ratio 21.8 RATIO (10-20); Calcium,Total 8.5 mg/dL (8.5-10.1); Chloride 102 mmol/L (98-107); Creatinine, Serum 0.78 mg/dL (0.55-1.02); EST Glomerular Filtration Rate 79 mL/min (>60); Est Glom Filt Rate - Afr Amer 96 mL/min (>60); Estimated Creatinine Clearance 58.39 ml/min; Glucose 183 mg/dL (74-106); Potassium 3.7 mmol/L (3.5-5.1); Sodium Level 140 mmol/L (136-145)
[2018-09-10] MEDS: Insulin Lispro 100 UNIT/ML INSULN.PEN 16 UNIT SC (08:47)
[2018-09-10] MEDS: Aspirin E.C. 81 MG Tablet PO (08:47)
[2018-09-10] MEDS: Metoprolol Tartrate 100 MG Tablet PO ×2 (08:49→21:42)
[2018-09-10] MEDS: Isosorbide Mononitrate 30 MG Tablet 90 MG PO (08:57)
[2018-09-10] MEDS: DULoxetine Hcl 60 MG Capsule PO (10:56)
[2018-09-10] MEDS: APIXABAN 2.5 MG TABLET PO ×2 (10:56→21:42)
[2018-09-10] MEDS: Pantoprazole Sodium 20 MG Tablet PO (10:57)
[2018-09-10] MEDS: Docusate Sodium 100 MG Capsule PO (10:57)
[2018-09-10] MEDS: Furosemide 40 MG Tablet PO ×2 (10:57→16:33)
[2018-09-10] MEDS: busPIRone 15 MG TABLET 7.5 MG PO ×2 (10:58→21:41)
[2018-09-10] MEDS: 0.9% NaCl Peripheral Flush Adult/Peds IV ×2 (11:00→21:43)
[2018-09-10] MEDS: Ceftriaxone 1 GM/50 ML BAG IV ×2 (11:01→21:41)
[2018-09-10 11:25] LABS: Bedside Glucose 352 mg/dL (70-110)
--- NOTE | 2018-09-10 12:01 | CASEMGMT ---
TOM ROCHA assessment: Face to Face with patient for initial transition planning/care coordination assessment. RN CM introduced self and role at [facility], pt voices understanding and consents to assessment at this time. Pt is sitting up in chair in no distress at this time. Pt is A/Ox4 at this time and answers all questions appropriately at this time. Care providers, pharmacy, and demographics verified at this time. PCP: Roxanne Specialists: whitney Jacome; SHARA [facility] physicians Preferred Pharmacy: [facility] and [facility], if [facility] closed Insurance: [facility] Prescription Benefit: [facility] Living Will/HPOA: Pt states does not have LW/HPOA currently but does have info at home. Pt declines to have SW complete at this time. LNOK: Maci Pickens, daughter; Mell Montero, daughter Living Arrangements: Pt states lives alone in 1 story apartment and states son has been living with her intermittently. Pt states no concerns at home at this time. Transportation: Pt states friends drive or uses [facility] tranportation and states no transportation concerns at this time. DME/HHC: Pt states has the following DME: cane, walker, w/c, medical alert, raised toilet seat, shower chair, grab bars, bipap, and 3 liters home oxygen thru [facility]. Pt was current with [facility] but per Uma, they are dropping her at this time and she informed pt during this visit. Pt states no preference for another [facility] agency at this time. Call to [place] and they do accept [facility] and referral to be sent for RN, PT/OT, and aide and order placed at this time. Pt states has been to [facility] in the past. Pt is current with [employer] and has aides with them M-Th mornings for 1.5hours each day. Pt states that Clifford Ayers is her heel caser and that [facility] is working on getting her a new banker mason and that she would like [facility] made aware that she needs a new raised toilet seat also. Chantale LOZANO aware and states will notify [facility] when able. Pt states no concerns with going home at time of discharge. Pt is on disability. Pt states does not smoke or drink ETOH. Pt states no further concerns/needs at this time. CM to follow for any further discharge planning/needs. Advised pt to ask for CM if any further questions/concerns/needs arise, voices understanding. Plan: Home w/ [facility], pending acceptance and resumption of passport. Magui SANTOS CM
--- NOTE | 2018-09-10 13:20 | PCM.PROGNOTE ---
<Rosa Hanna - Last Filed: 09/10/18 13:31> Subjective: Patient seen and examined. Reports she feels improved. Denies current complaints. - Physical Exam General: Alert, Oriented x3, Cooperative, No apparent distress HEENT: Atraumatic, PERRLA, EOMI, Normocephalic Oral: Moist Mucosa Neck: Supple, No JVD, Negative Carotid Bruits Lungs: Clear to auscultation, Diminished Cardiovascular: - - Different relation, intermittent tachycardia Abdomen: Bowel Sounds Present, Soft, Non Tender, Non-Distended Extremities: No clubbing, No cyanosis, No edema, Capillary Refill Less than 3 Seconds Skin: No rashes, No breakdown Musculoskeletal: No Tenderness to Palpation of Joints or Extremities Neurological: Cranial nerves II-XII grossly intact, Neuro grossly intact Psych/Mental Status: Normal Affect, Appropriate Vital Signs Temp Pulse Resp BP Pulse Ox 98.4 F 90 16 126/67 H 98 09/10/18 08:50 09/10/18 11:06 09/10/18 08:50 09/10/18 08:50 09/10/18 11:00 Oxygen Flow Rate (L/min) 2 Oxygen Delivery Method Nasal Cannula Weight: 205 lb 0.478 oz Body Mass Index (BMI) 37.5 Finger Stick Blood Glucose 263 Intake and Output for Last 24 Hours 09/08/18 09/09/18 09/10/18 23:59 23:59 23:59 Intake Total 265 / 265 841 / 841 Balance 265 / 265 841 / 841 Laboratory Tests Past 24 Hrs 09/09/18 09/09/18 09/09/18 17:15 17:15 17:15 WBC 5.5 RBC 4.57 Hgb 13.0 Hct 42.0 MCV 91.9 MCH 28.4 MCHC 31.0 L RDW 16.4 H RDW Differential 54.8 H Plt Count 205 MPV 10.7 Immature Gran % (Auto) 0.000 Neut % (Auto) 58.7 Lymph % (Auto) 25.9 Oliver % (Auto) 9.7 Eos % (Auto) 5.3 H Baso % (Auto) 0.4 Absolute Neuts (auto) 3.2 Absolute Lymphs (auto) 1.42 Total Counted Not Reportable Specimen Type Sample Site pH Bicarbonate Actual POC Total CO2 Base Excess O2 Saturation ABG pCO2 ABG pO2 Chap[place] Test O2 Delivery Device Liter Flow Blood Gas Notified Whom Blood Gas Notified Time Sodium 138 Potassium 3.7 Chloride 100 Carbon Dioxide 32.0 Anion Gap 6 BUN 19 H Creatinine 1.10 H Estim Creat Clear Calc 41.40 Est GFR (MDRD) Af Amer 64 Est GFR (MDRD) Non-Af 53 L BUN/Creatinine Ratio 17.3 Glucose 253 H Calcium 8.7 Total Bilirubin 0.90 Direct Bilirubin 0.23 AST 23 ALT 21 Alkaline Phosphatase 59 Troponin I < 0.015 B-Natriuretic Peptide Total Protein 7.3 Albumin 3.3 Globulin 4.0 Lipase 51 L Urine Color Urine Clarity Urine pH Ur Specific Phe[place] Urine Protein Urine Glucose (UA) Urine Ketones Urine Occult Blood Urine Nitrite Urine Bilirubin Urine Urobilinogen Ur Leukocyte Esterase Urine RBC Urine WBC Ur Squamous Epith Cells Urine Bacteria Urine Mucus 09/09/18 09/09/18 09/09/18 17:15 17:58 18:49 WBC RBC Hgb Hct MCV MCH MCHC RDW RDW Differential Plt Count MPV Immature Gran % (Auto) Neut % (Auto) Lymph % (Auto) Oliver % (Auto) Eos % (Auto) Baso % (Auto) Absolute Neuts (auto) Absolute Lymphs (auto) Total Counted Specimen Type ART Sample Site R Radial pH 7.38 Bicarbonate Actual 32.6 H POC Total CO2 34 Base Excess 8 H O2 Saturation 95 ABG pCO2 54.7 H ABG pO2 77 Chap[place] Test POS O2 Delivery Device Nasal Can Liter Flow 1.0 Blood Gas Notified Whom ED Blood Gas Notified Time 1750 Sodium Potassium Chloride Carbon Dioxide Anion Gap BUN Creatinine Estim Creat Clear Calc Est GFR (MDRD) Af Amer Est GFR (MDRD) Non-Af BUN/Creatinine Ratio Glucose Calcium Total Bilirubin Direct Bilirubin AST ALT Alkaline Phosphatase Troponin I B-Natriuretic Peptide 124.8 H Total Protein Albumin Globulin Lipase Urine Color Yellow Urine Clarity Clear Urine pH 6.0 Ur Specific Phe[place] 1.010 Urine Protein Negative Urine Glucose (UA) Normal Urine Ketones Negative Urine Occult Blood Negative Urine Nitrite Negative Urine Bilirubin Negative Urine Urobilinogen Normal Ur Leukocyte Esterase Negative Urine RBC 0 SEEN Urine WBC 0 SEEN Ur Squamous Epith Cells 0 SEEN Urine Bacteria 0 SEEN Urine Mucus 0 SEEN 09/10/18 09/10/18 07:00 07:00 WBC 5.6 RBC 4.63 Hgb 13.1 Hct 42.5 MCV 91.8 MCH 28.3 MCHC 30.8 L RDW 16.3 H RDW Differential 54.1 H Plt Count 175 MPV 10.6 Immature Gran % (Auto) 0.200 Neut % (Auto) 64.3 Lymph % (Auto) 20.0 Oliver % (Auto) 9.6 Eos % (Auto) 5.7 H Baso % (Auto) 0.2 Absolute Neuts (auto) 3.6 Absolute Lymphs (auto) 1.12 Total Counted Not Reportable Specimen Type Sample Site pH Bicarbonate Actual POC Total CO2 Base Excess O2 Saturation ABG pCO2 ABG pO2 [place] Test O2 Delivery Device Liter Flow Blood Gas Notified Whom Blood Gas Notified Time Sodium 140 Potassium 3.7 Chloride 102 Carbon Dioxide 28.0 Anion Gap 10 BUN 17 Creatinine 0.78 Estim Creat Clear Calc 58.39 Est GFR (MDRD) Af Amer 96 Est GFR (MDRD) Non-Af 79 BUN/Creatinine Ratio 21.8 H Glucose 183 H Calcium 8.5 Total Bilirubin Direct Bilirubin AST ALT Alkaline Phosphatase Troponin I B-Natriuretic Peptide Total Protein Albumin Globulin Lipase Urine Color Urine Clarity Urine pH Ur Specific [place] Urine Protein Urine Glucose (UA) Urine Ketones Urine Occult Blood Urine Nitrite Urine Bilirubin Urine Urobilinogen Ur Leukocyte Esterase Urine RBC Urine WBC Ur Squamous Epith Cells Urine Bacteria Urine Mucus POC Glucose 09/10/18 09/10/18 09/10/18 11:22 06:49 02:01 POC Glucose 352 H 187 H 188 H 09/09/18 09/09/18 23:02 17:00 POC Glucose 220 H 263 H Medical Necessity - Tobacco Use Smoking Status: Former smoker Assessment/Plan All Active Problems Toxic encephalopathy (Acute) Hypokalemia (Acute) Metabolic alkalosis (Acute) Abnormal nuclear stress test (Resolved) Bradycardia (Resolved) Pneumonia (Resolved) Septic shock (Resolved) Toxic encephalopathy (Resolved) 1. Acute metabolic encephalopathy secondary to acute community-acquired pneumonia-chest x-ray admission with right upper lobe infiltrate. Brain CT unremarkable. Continue IV Rocephin and IV azithromycin. Mental status improved. Albuterol and DuoNeb aerosols. Respiratory panel pending. 2. Acute kidney injury-resolved with IV fluids. 3. Atrial fibrillation-rate currently controlled. Continue metoprolol and Eliquis. 4. Hypothyroidism-continue Synthroid. 5. Anxiety/depression- continue buspar/cymbalta. 6. GERD- continue PPI. 7. CAD-continue aspirin, statin, metoprolol, imdur. 8. Chronic COPD-no acute exacerbation. PRN albuterol treatments. DVT prophylaxis-Eliquis This patient was seen by IZABELA Kraus under the supervision of Dr. Hogan. <Yvon Hogan - Last Filed: 09/10/18 16:09> - Physical Exam Vital Signs Temp Pulse Resp BP Pulse Ox 98.6 F 100 16 111/53 L 99 09/10/18 14:50 09/10/18 15:00 09/10/18 14:50 09/10/18 14:50 09/10/18 14:50 Oxygen Flow Rate (L/min) 2 Oxygen Delivery Method Nasal Cannula Weight: 93 kg Body Mass Index (BMI) 37.5 Finger Stick Blood Glucose 263 Intake and Output for Last 24 Hours 09/08/18 09/09/18 09/10/18 23:59 23:59 23:59 Intake Total 265 / 265 841 / 841 Balance 265 / 265 841 / 841 Microbiology Past 72 Hours 09/10/18 02:45 Respiratory Panel (PCR) - Final Mucosa - Nasopharyngeal Laboratory Tests Past 24 Hrs 09/09/18 09/09/18 09/09/18 17:15 17:15 17:15 WBC 5.5 RBC 4.57 Hgb 13.0 Hct 42.0 MCV 91.9 MCH 28.4 MCHC 31.0 L RDW 16.4 H RDW Differential 54.8 H Plt Count 205 MPV 10.7 Immature Gran % (Auto) 0.000 Neut % (Auto) 58.7 Lymph % (Auto) 25.9 Oliver % (Auto) 9.7 Eos % (Auto) 5.3 H Baso % (Auto) 0.4 Absolute Neuts (auto) 3.2 Absolute Lymphs (auto) 1.42 Total Counted Not Reportable Specimen Type Sample Site pH Bicarbonate Actual POC Total CO2 Base Excess O2 Saturation ABG pCO2 ABG pO2 [place] Test O2 Delivery Device Liter Flow Blood Gas Notified Whom Blood Gas Notified Time Sodium 138 Potassium 3.7 Chloride 100 Carbon Dioxide 32.0 Anion Gap 6 BUN 19 H Creatinine 1.10 H Estim Creat Clear Calc 41.40 Est GFR (MDRD) Af Amer 64 Est GFR (MDRD) Non-Af 53 L BUN/Creatinine Ratio 17.3 Glucose 253 H Calcium 8.7 Total Bilirubin 0.90 Direct Bilirubin 0.23 AST 23 ALT 21 Alkaline Phosphatase 59 Troponin I < 0.015 B-Natriuretic Peptide Total Protein 7.3 Albumin 3.3 Globulin 4.0 Lipase 51 L Urine Color Urine Clarity Urine pH Ur Specific [place] Urine Protein Urine Glucose (UA) Urine Ketones Urine Occult Blood Urine Nitrite Urine Bilirubin Urine Urobilinogen Ur Leukocyte Esterase Urine RBC Urine WBC Ur Squamous Epith Cells Urine Bacteria Urine Mucus Urine Opiates Screen Urine Methadone Screen Ur Barbiturates Screen Ur Phencyclidine Scrn Ur Amphetamines Screen U Methamphetamin-MDMA U Benzodiazepines Scrn Urine Cocaine Screen U Cannabinoids Screen Ur Drug Screen Comment 09/09/18 09/09/18 09/09/18 17:15 17:58 18:49 WBC RBC Hgb Hct MCV MCH MCHC RDW RDW Differential Plt Count MPV Immature Gran % (Auto) Neut % (Auto) Lymph % (Auto) Oliver % (Auto) Eos % (Auto) Baso % (Auto) Absolute Neuts (auto) Absolute Lymphs (auto) Total Counted Specimen Type ART Sample Site R Radial pH 7.38 Bicarbonate Actual 32.6 H POC Total CO2 34 Base Excess 8 H O2 Saturation 95 ABG pCO2 54.7 H ABG pO2 77 [place] Test POS O2 Delivery Device Nasal Can Liter Flow 1.0 Blood Gas Notified Whom ED Blood Gas Notified Time 1750 Sodium Potassium Chloride Carbon Dioxide Anion Gap BUN Creatinine Estim Creat Clear Calc Est GFR (MDRD) Af Amer Est GFR (MDRD) Non-Af BUN/Creatinine Ratio Glucose Calcium Total Bilirubin Direct Bilirubin AST ALT Alkaline Phosphatase Troponin I B-Natriuretic Peptide 124.8 H Total Protein Albumin Globulin Lipase Urine Color Yellow Urine Clarity Clear Urine pH 6.0 Ur Specific [place]he[place] 1.010 Urine Protein Negative Urine Glucose (UA) Normal Urine Ketones Negative Urine Occult Blood Negative Urine Nitrite Negative Urine Bilirubin Negative Urine Urobilinogen Normal Ur Leukocyte Esterase Negative Urine RBC 0 SEEN Urine WBC 0 SEEN Ur Squamous Epith Cells 0 SEEN Urine Bacteria 0 SEEN Urine Mucus 0 SEEN Urine Opiates Screen Urine Methadone Screen Ur Barbiturates Screen Ur Phencyclidine Scrn Ur Amphetamines Screen U Methamphetamin-MDMA U Benzodiazepines Scrn Urine Cocaine Screen U Cannabinoids Screen Ur Drug Screen Comment 09/10/18 09/10/18 09/10/18 07:00 07:00 15:37 WBC 5.6 RBC 4.63 Hgb 13.1 Hct 42.5 MCV 91.8 MCH 28.3 MCHC 30.8 L RDW 16.3 H RDW Differential 54.1 H Plt Count 175 MPV 10.6 Immature Gran % (Auto) 0.200 Neut % (Auto) 64.3 Lymph % (Auto) 20.0 Oliver % (Auto) 9.6 Eos % (Auto) 5.7 H Baso % (Auto) 0.2 Absolute Neuts (auto) 3.6 Absolute Lymphs (auto) 1.12 Total Counted Not Reportable Specimen Type Sample Site pH Bicarbonate Actual POC Total CO2 Base Excess O2 Saturation ABG pCO2 ABG pO2 [place] Test O2 Delivery Device Liter Flow Blood Gas Notified Whom Blood Gas Notified Time Sodium 140 Potassium 3.7 Chloride 102 Carbon Dioxide 28.0 Anion Gap 10 BUN 17 Creatinine 0.78 Estim Creat Clear Calc 58.39 Est GFR (MDRD) Af Amer 96 Est GFR (MDRD) Non-Af 79 BUN/Creatinine Ratio 21.8 H Glucose 183 H Calcium 8.5 Total Bilirubin Direct Bilirubin AST ALT Alkaline Phosphatase Troponin I B-Natriuretic Peptide Total Protein Albumin Globulin Lipase Urine Color Urine Clarity Urine pH Ur Specific [place] Urine Protein Urine Glucose (UA) Urine Ketones Urine Occult Blood Urine Nitrite Urine Bilirubin Urine Urobilinogen Ur Leukocyte Esterase Urine RBC Urine WBC Ur Squamous Epith Cells Urine Bacteria Urine Mucus Urine Opiates Screen Pending Urine Methadone Screen Pending Ur Barbiturates Screen Pending Ur Phencyclidine Scrn Pending Ur Amphetamines Screen Pending U Methamphetamin-MDMA Pending U Benzodiazepines Scrn Pending Urine Cocaine Screen Pending U Cannabinoids Screen Pending Ur Drug Screen Comment POC Glucose 09/10/18 09/10/18 09/10/18 11:22 06:49 02:01 POC Glucose 352 H 187 H 188 H 09/09/18 09/09/18 23:02 17:00 POC Glucose 220 H 263 H Assessment/Plan This patient was seen in conjunction with IZABELA Kraus . I have independently interviewed and examined the patient and reviewed pertinent historical, laboratory, and other data. Please refer to IZABELA Kraus note for details of this patient's presentation, findings, and recommendations. I have reviewed IZABELA Kraus note and concur with documented findings. In brief, patient is a 63-year-old who presented with altered mental status and shortness of breath and assessment of pneumonia made admitted to a monitored bed for further manage Physical Examination: GENERAL: cooperative HEENT: Atraumatic; EYES; Anicteric, Normal Conjunctiva NECK; supple, normal thyroid, RESPIRATORY: Diminished to auscultation bilaterally, CARDIOVASCULAR: Regular S1 S2, GI: soft, non-tender, normoactive bowel sounds, : No Renal angle tenderness; EXTREMITIES: no clubbing, no cyanosis. NEURO: Awake; no lateralizing signs. SKIN: No Rash PSYCH; Normal affect Assessment: 1. Acute metabolic encephalopathy secondary to acute kidney injury 2. Community-acquired pneumonia 3. Paroxysmal atrial fibrillation on metoprolol and Eliquis 4. Assessment hypertension 5. Depression with anxiety 6. GERD 7. COPD no exacerbation 8. Coronary artery disease 9. DVT prophylaxis on Eliquis Recommendations: 1. I have discussed the results of my overview and impressions with the patient 2. Options for management were reviewed Active Medications Acetaminophen (Tylenol) 1,000 mg PO Q8H PRN PRN PRN Reason: PAIN Albuterol Sulfate (Ventolin Aerosols) 2.5 mg INHALATION Q4H PRN PRN PRN Reason: Shortness of breath/Wheezing Apixaban (Eliquis) 2.5 mg PO BID [facility] Last Admin: 09/10/18 10:56 Dose: 2.5 mg Aspirin (Ecotrin) 81 mg PO DAILY@0800 [facility] Last Admin: 09/10/18 08:47 Dose: 81 mg Atorvastatin Calcium (Lipitor) 40 mg PO QHS [facility] Buspirone HCl (Buspar) 7.5 mg PO BID [facility] Last Admin: 09/10/18 10:58 Dose: 7.5 mg Docusate Sodium (Colace) 100 mg PO DAILY [facility] Last Admin: 09/10/18 10:57 Dose: 100 mg Duloxetine HCl (Cymbalta) 60 mg PO DAILY [facility] Last Admin: 09/10/18 10:56 Dose: 60 mg Furosemide (Lasix) 40 mg PO 1000,1800 [facility] Last Admin: 09/10/18 10:57 Dose: 40 mg Azithromycin 500 mg/ Dextrose 255 mls @ 250 mls/hr IV Q24 [facility] Last Admin: 09/10/18 12:30 Dose: 250 mls/hr Ceftriaxone Sodium (Rocephin) 1 gm in 50 mls @ 100 mls/hr IV Q12 [facility] Last Admin: 09/10/18 11:01 Dose: 100 mls/hr Sodium Chloride () 250 mls @ 15 mls/hr IV .[id number] PRN PRN Reason: SALINE FLUSH Sodium Chloride () 1,000 mls @ 100 mls/hr IV .Q10H [facility] Last Admin: 09/10/18 02:21 Dose: Not Given Insulin Human Lispro (Humalog Kwikpen (Bkc)) 16 unit SC BREAKFAST [facility] Last Admin: 09/10/18 08:47 Dose: 16 u Insulin Human Lispro (Humalog Kwikpen (Bkc)) 0 unit SC ACHS [facility]; Protocol Last Admin: 09/10/18 12:30 Dose: 8 units Isosorbide Mononitrate (Imdur) 90 mg PO DAILY [facility] Last Admin: 09/10/18 08:57 Dose: 90 mg Levothyroxine Sodium (Synthroid) 100 mcg PO DAILY@0600 [facility] Last Admin: 09/10/18 05:24 Dose: 100 mcg Magnesium Hydroxide (Milk Of Magnesia) 30 ml PO DAILY PRN PRN PRN Reason: Constipation Metoprolol Tartrate (Lopressor (Beta Kaye)) 100 mg PO BID [facility] Last Admin: 09/10/18 08:49 Dose: 100 mg Pantoprazole Sodium (Protonix) 20 mg PO DAILY [facility] Last Admin: 09/10/18 10:57 Dose: 20 mg Sodium Chloride () 5 - 15 ml IV UD PRN PRN Reason: SALINE FLUSH Last Admin: 09/10/18 11:00 Dose: 10 ml Clinical Impression(s) from Imaging Studies Chest X-Ray 09/09/18 17:15 IMPRESSION: Possible right upper lobe infiltrate medially. Cardiomegaly. Electronically Signed: Rashaun Glasgow DO at 18:25 EST Tel [phone], Service support , Brain CT 09/09/18 17:17 IMPRESSION: Normal unenhanced CT scan of the brain. Electronically Signed: Kamari Andino MD at 18:08 EST , Service support , Code Visit Inpatient E&M: [id number] Subs Hosp L3
--- NOTE | 2018-09-10 13:31 | PN_ITS ---
<Rosa Hanna - Last Filed: 09/10/18 13:31> Subjective: Patient seen and examined. Reports she feels improved. Denies current complaints. - Physical Exam General: Alert, Oriented x3, Cooperative, No apparent distress HEENT: Atraumatic, PERRLA, EOMI, Normocephalic Oral: Moist Mucosa Neck: Supple, No JVD, Negative Carotid Bruits Lungs: Clear to auscultation, Diminished Cardiovascular: - - Different relation, intermittent tachycardia Abdomen: Bowel Sounds Present, Soft, Non Tender, Non-Distended Extremities: No clubbing, No cyanosis, No edema, Capillary Refill Less than 3 Seconds Skin: No rashes, No breakdown Musculoskeletal: No Tenderness to Palpation of Joints or Extremities Neurological: Cranial nerves II-XII grossly intact, Neuro grossly intact Psych/Mental Status: Normal Affect, Appropriate Vital Signs Temp Pulse Resp BP Pulse Ox 98.4 F 90 16 126/67 H 98 09/10/18 08:50 09/10/18 11:06 09/10/18 08:50 09/10/18 08:50 09/10/18 11:00 Oxygen Flow Rate (L/min) 2 Oxygen Delivery Method Nasal Cannula Weight: 205 lb 0.478 oz Body Mass Index (BMI) 37.5 Finger Stick Blood Glucose 263 Intake and Output for Last 24 Hours 09/08/18 09/09/18 09/10/18 23:59 23:59 23:59 Intake Total 265 / 265 841 / 841 Balance 265 / 265 841 / 841 Laboratory Tests Past 24 Hrs 09/09/18 09/09/18 09/09/18 17:15 17:15 17:15 WBC 5.5 RBC 4.57 Hgb 13.0 Hct 42.0 MCV 91.9 MCH 28.4 MCHC 31.0 L RDW 16.4 H RDW Differential 54.8 H Plt Count 205 MPV 10.7 Immature Gran % (Auto) 0.000 Neut % (Auto) 58.7 Lymph % (Auto) 25.9 [place] % (Auto) 9.7 Eos % (Auto) 5.3 H Baso % (Auto) 0.4 Absolute Neuts (auto) 3.2 Absolute Lymphs (auto) 1.42 Total Counted Not Reportable Specimen Type Sample Site pH Bicarbonate Actual POC Total CO2 Base Excess O2 Saturation ABG pCO2 ABG pO2 [place] Test O2 Delivery Device Liter Flow Blood Gas Notified Whom Blood Gas Notified Time Sodium 138 Potassium 3.7 Chloride 100 Carbon Dioxide 32.0 Anion Gap 6 BUN 19 H Creatinine 1.10 H Estim Creat Clear Calc 41.40 Est GFR (MDRD) Af Amer 64 Est GFR (MDRD) Non-Af 53 L BUN/Creatinine Ratio 17.3 Glucose 253 H Calcium 8.7 Total Bilirubin 0.90 Direct Bilirubin 0.23 AST 23 ALT 21 Alkaline Phosphatase 59 Troponin I < 0.015 B-Natriuretic Peptide Total Protein 7.3 Albumin 3.3 Globulin 4.0 Lipase 51 L Urine Color Urine Clarity Urine pH Ur Specific [place] Urine Protein Urine Glucose (UA) Urine Ketones Urine Occult Blood Urine Nitrite Urine Bilirubin Urine Urobilinogen Ur Leukocyte Esterase Urine RBC Urine WBC Ur Squamous Epith Cells Urine Bacteria Urine Mucus 09/09/18 09/09/18 09/09/18 17:15 17:58 18:49 WBC RBC Hgb Hct MCV MCH MCHC RDW RDW Differential Plt Count MPV Immature Gran % (Auto) Neut % (Auto) Lymph % (Auto) [place] % (Auto) Eos % (Auto) Baso % (Auto) Absolute Neuts (auto) Absolute Lymphs (auto) Total Counted Specimen Type ART Sample Site R Radial pH 7.38 Bicarbonate Actual 32.6 H POC Total CO2 34 Base Excess 8 H O2 Saturation 95 ABG pCO2 54.7 H ABG pO2 77 [place] Test POS O2 Delivery Device Nasal Can Liter Flow 1.0 Blood Gas Notified Whom ED Blood Gas Notified Time 1750 Sodium Potassium Chloride Carbon Dioxide Anion Gap BUN Creatinine Estim Creat Clear Calc Est GFR (MDRD) Af Amer Est GFR (MDRD) Non-Af BUN/Creatinine Ratio Glucose Calcium Total Bilirubin Direct Bilirubin AST ALT Alkaline Phosphatase Troponin I B-Natriuretic Peptide 124.8 H Total Protein Albumin Globulin Lipase Urine Color Yellow Urine Clarity Clear Urine pH 6.0 Ur Specific [place] 1.010 Urine Protein Negative Urine Glucose (UA) Normal Urine Ketones Negative Urine Occult Blood Negative Urine Nitrite Negative Urine Bilirubin Negative Urine Urobilinogen Normal Ur Leukocyte Esterase Negative Urine RBC 0 SEEN Urine WBC 0 SEEN Ur Squamous Epith Cells 0 SEEN Urine Bacteria 0 SEEN Urine Mucus 0 SEEN 09/10/18 09/10/18 07:00 07:00 WBC 5.6 RBC 4.63 Hgb 13.1 Hct 42.5 MCV 91.8 MCH 28.3 MCHC 30.8 L RDW 16.3 H RDW Differential 54.1 H Plt Count 175 MPV 10.6 Immature Gran % (Auto) 0.200 Neut % (Auto) 64.3 Lymph % (Auto) 20.0 [place] % (Auto) 9.6 Eos % (Auto) 5.7 H Baso % (Auto) 0.2 Absolute Neuts (auto) 3.6 Absolute Lymphs (auto) 1.12 Total Counted Not Reportable Specimen Type Sample Site pH Bicarbonate Actual POC Total CO2 Base Excess O2 Saturation ABG pCO2 ABG pO2 [place] Test O2 Delivery Device Liter Flow Blood Gas Notified Whom Blood Gas Notified Time Sodium 140 Potassium 3.7 Chloride 102 Carbon Dioxide 28.0 Anion Gap 10 BUN 17 Creatinine 0.78 Estim Creat Clear Calc 58.39 Est GFR (MDRD) Af Amer 96 Est GFR (MDRD) Non-Af 79 BUN/Creatinine Ratio 21.8 H Glucose 183 H Calcium 8.5 Total Bilirubin Direct Bilirubin AST ALT Alkaline Phosphatase Troponin I B-Natriuretic Peptide Total Protein Albumin Globulin Lipase Urine Color Urine Clarity Urine pH Ur Specific [place] Urine Protein Urine Glucose (UA) Urine Ketones Urine Occult Blood Urine Nitrite Urine Bilirubin Urine Urobilinogen Ur Leukocyte Esterase Urine RBC Urine WBC Ur Squamous Epith Cells Urine Bacteria Urine Mucus POC Glucose 09/10/18 09/10/18 09/10/18 11:22 06:49 02:01 POC Glucose 352 H 187 H 188 H 09/09/18 09/09/18 23:02 17:00 POC Glucose 220 H 263 H Medical Necessity - Tobacco Use Smoking Status: Former smoker Assessment/Plan All Active Problems Toxic encephalopathy (Acute) Hypokalemia (Acute) Metabolic alkalosis (Acute) Abnormal nuclear stress test (Resolved) Bradycardia (Resolved) Pneumonia (Resolved) Septic shock (Resolved) Toxic encephalopathy (Resolved) 1. Acute metabolic encephalopathy secondary to acute community-acquired pneu monia-chest x-ray admission with right upper lobe infiltrate. Brain CT unremarkable. Continue IV Rocephin and IV azithromycin. Mental status improved. Albuterol and DuoNeb aerosols. Respiratory panel pending. 2. Acute kidney injury-resolved with IV fluids. 3. Atrial fibrillation-rate currently controlled. Continue metoprolol and Eliquis. 4. Hypothyroidism-continue Synthroid. 5. Anxiety/depression- continue buspar/cymbalta. 6. GERD- continue PPI. 7. CAD-continue aspirin, statin, metoprolol, imdur. 8. Chronic COPD-no acute exacerbation. PRN albuterol treatments. DVT prophylaxis-Eliquis This patient was seen by IZABELA Kraus under the supervision of Dr. Hogan. <Yvon Hogan - Last Filed: 09/10/18 16:09> - Physical Exam Vital Signs Temp Pulse Resp BP Pulse Ox 98.6 F 100 16 111/53 L 99 09/10/18 14:50 09/10/18 15:00 09/10/18 14:50 09/10/18 14:50 09/10/18 14:50 Oxygen Flow Rate (L/min) 2 Oxygen Delivery Method Nasal Cannula Weight: 93 kg Body Mass Index (BMI) 37.5 Finger Stick Blood Glucose 263 Intake and Output for Last 24 Hours 09/08/18 09/09/18 09/10/18 23:59 23:59 23:59 Intake Total 265 / 265 841 / 841 Balance 265 / 265 841 / 841 Microbiology Past 72 Hours 09/10/18 02:45 Respiratory Panel (PCR) - Final Mucosa - Nasopharyngeal Laboratory Tests Past 24 Hrs 09/09/18 09/09/18 09/09/18 17:15 17:15 17:15 WBC 5.5 RBC 4.57 Hgb 13.0 Hct 42.0 MCV 91.9 MCH 28.4 MCHC 31.0 L RDW 16.4 H RDW Differential 54.8 H Plt Count 205 MPV 10.7 Immature Gran % (Auto) 0.000 Neut % (Auto) 58.7 Lymph % (Auto) 25.9 [place] % (Auto) 9.7 Eos % (Auto) 5.3 H Baso % (Auto) 0.4 Absolute Neuts (auto) 3.2 Absolute Lymphs (auto) 1.42 Total Counted Not Reportable Specimen Type Sample Site pH Bicarbonate Actual POC Total CO2 Base Excess O2 Saturation ABG pCO2 ABG pO2 [place] Test O2 Delivery Device Liter Flow Blood Gas Notified Whom Blood Gas Notified Time Sodium 138 Potassium 3.7 Chloride 100 Carbon Dioxide 32.0 Anion Gap 6 BUN 19 H Creatinine 1.10 H Estim Creat Clear Calc 41.40 Est GFR (MDRD) Af Amer 64 Est GFR (MDRD) Non-Af 53 L BUN/Creatinine Ratio 17.3 Glucose 253 H Calcium 8.7 Total Bilirubin 0.90 Direct Bilirubin 0.23 AST 23 ALT 21 Alkaline Phosphatase 59 Troponin I < 0.015 B-Natriuretic Peptide Total Protein 7.3 Albumin 3.3 Globulin 4.0 Lipase 51 L Urine Color Urine Clarity Urine pH Ur Specific [place] Urine Protein Urine Glucose (UA) Urine Ketones Urine Occult Blood Urine Nitrite Urine Bilirubin Urine Urobilinogen Ur Leukocyte Esterase Urine RBC Urine WBC Ur Squamous Epith Cells Urine Bacteria Urine Mucus Urine Opiates Screen Urine Methadone Screen Ur Barbiturates Screen Ur Phencyclidine Scrn Ur Amphetamines Screen U Methamphetamin-MDMA U Benzodiazepines Scrn Urine Cocaine Screen U Cannabinoids Screen Ur Drug Screen Comment 09/09/18 09/09/18 09/09/18 17:15 17:58 18:49 WBC RBC Hgb Hct MCV MCH MCHC RDW RDW Differential Plt Count MPV Immature Gran % (Auto) Neut % (Auto) Lymph % (Auto) [place] % (Auto) Eos % (Auto) Baso % (Auto) Absolute Neuts (auto) Absolute Lymphs (auto) Total Counted Specimen Type ART Sample Site R Radial pH 7.38 Bicarbonate Actual 32.6 H POC Total CO2 34 Base Excess 8 H O2 Saturation 95 ABG pCO2 54.7 H ABG pO2 77 [place] Test POS O2 Delivery Device Nasal Can Liter Flow 1.0 Blood Gas Notified Whom ED Blood Gas Notified Time 1750 Sodium Potassium Chloride Carbon Dioxide Anion Gap BUN Creatinine Estim Creat Clear Calc Est GFR (MDRD) Af Amer Est GFR (MDRD) Non-Af BUN/Creatinine Ratio Glucose Calcium Total Bilirubin Direct Bilirubin AST ALT Alkaline Phosphatase Troponin I B-Natriuretic Peptide 124.8 H Total Protein Albumin Globulin Lipase Urine Color Yellow Urine Clarity Clear Urine pH 6.0 Ur Specific [place] 1.010 Urine Protein Negative Urine Glucose (UA) Normal Urine Ketones Negative Urine Occult Blood Negative Urine Nitrite Negative Urine Bilirubin Negative Urine Urobilinogen Normal Ur Leukocyte Esterase Negative Urine RBC 0 SEEN Urine WBC 0 SEEN Ur Squamous Epith Cells 0 SEEN Urine Bacteria 0 SEEN Urine Mucus 0 SEEN Urine Opiates Screen Urine Methadone Screen Ur Barbiturates Screen Ur Phencyclidine Scrn Ur Amphetamines Screen U Methamphetamin-MDMA U Benzodiazepines Scrn Urine Cocaine Screen U Cannabinoids Screen Ur Drug Screen Comment 09/10/18 09/10/18 09/10/18 07:00 07:00 15:37 WBC 5.6 RBC 4.63 Hgb 13.1 Hct 42.5 MCV 91.8 MCH 28.3 MCHC 30.8 L RDW 16.3 H RDW Differential 54.1 H Plt Count 175 MPV 10.6 Immature Gran % (Auto) 0.200 Neut % (Auto) 64.3 Lymph % (Auto) 20.0 [place] % (Auto) 9.6 Eos % (Auto) 5.7 H Baso % (Auto) 0.2 Absolute Neuts (auto) 3.6 Absolute Lymphs (auto) 1.12 Total Counted Not Reportable Specimen Type Sample Site pH Bicarbonate Actual POC Total CO2 Base Excess O2 Saturation ABG pCO2 ABG pO2 [place] Test O2 Delivery Device Liter Flow Blood Gas Notified Whom Blood Gas Notified Time Sodium 140 Potassium 3.7 Chloride 102 Carbon Dioxide 28.0 Anion Gap 10 BUN 17 Creatinine 0.78 Estim Creat Clear Calc 58.39 Est GFR (MDRD) Af Amer 96 Est GFR (MDRD) Non-Af 79 BUN/Creatinine Ratio 21.8 H Glucose 183 H Calcium 8.5 Total Bilirubin Direct Bilirubin AST ALT Alkaline Phosphatase Troponin I B-Natriuretic Peptide Total Protein Albumin Globulin Lipase Urine Color Urine Clarity Urine pH Ur Specific [place] Urine Protein Urine Glucose (UA) Urine Ketones Urine Occult Blood Urine Nitrite Urine Bilirubin Urine Urobilinogen Ur Leukocyte Esterase Urine RBC Urine WBC Ur Squamous Epith Cells Urine Bacteria Urine Mucus Urine Opiates Screen Pending Urine Methadone Screen Pending Ur Barbiturates Screen Pending Ur Phencyclidine Scrn Pending Ur Amphetamines Screen Pending U Methamphetamin-MDMA Pending U Benzodiazepines Scrn Pending Urine Cocaine Screen Pending U Cannabinoids Screen Pending Ur Drug Screen Comment POC Glucose 09/10/18 09/10/18 09/10/18 11:22 06:49 02:01 POC Glucose 352 H 187 H 188 H 09/09/18 09/09/18 23:02 17:00 POC Glucose 220 H 263 H Assessment/Plan This patient was seen in conjunction with IZABELA Kraus . I have independently interviewed and examined the patient and reviewed pertinent historical, laboratory, and other data. Please refer to IZABELA Kraus note for details of this patient's presentation, findings, and recommendations. I have reviewed IZABELA Kraus note and concur with documented findings. In brief, patient is a 63-year-old who presented with altered mental status and shortness of breath and assessment of pneumonia made admitted to a monitored bed for further manage Physical Examination: GENERAL: cooperative HEENT: Atraumatic; EYES; Anicteric, Normal Conjunctiva NECK; supple, normal thyroid, RESPIRATORY: Diminished to auscultation bilaterally, CARDIOVASCULAR: Regular S1 S2, GI: soft, non-tender, normoactive bowel sounds, : No Renal angle tenderness; EXTREMITIES: no clubbing, no cyanosis. NEURO: Awake; no lateralizing signs. SKIN: No Rash PSYCH; Normal affect Assessment: 1. Acute metabolic encephalopathy secondary to acute kidney injury 2. Community-acquired pneumonia 3. Paroxysmal atrial fibrillation on metoprolol and Eliquis 4. Assessment hypertension 5. Depression with anxiety 6. GERD 7. COPD no exacerbation 8. Coronary artery disease 9. DVT prophylaxis on Eliquis Recommendations: 1. I have discussed the results of my overview and impressions with the patient 2. Options for management were reviewed Active Medications Acetaminophen (Tylenol) 1,000 mg PO Q8H PRN PRN PRN Reason: PAIN Albuterol Sulfate (Ventolin Aerosols) 2.5 mg INHALATION Q4H PRN PRN PRN Reason: Shortness of breath/Wheezing Apixaban (Eliquis) 2.5 mg PO BID [facility] Last Admin: 09/10/18 10:56 Dose: 2.5 mg Aspirin (Ecotrin) 81 mg PO DAILY@0800 [facility] Last Admin: 09/10/18 08:47 Dose: 81 mg Atorvastatin Calcium (Lipitor) 40 mg PO QHS [facility] Buspirone HCl (Buspar) 7.5 mg PO BID [facility] Last Admin: 09/10/18 10:58 Dose: 7.5 mg Docusate Sodium (Colace) 100 mg PO DAILY [facility] Last Admin: 09/10/18 10:57 Dose: 100 mg Duloxetine HCl (Cymbalta) 60 mg PO DAILY [facility] Last Admin: 09/10/18 10:56 Dose: 60 mg Furosemide (Lasix) 40 mg PO 1000,1800 [facility] Last Admin: 09/10/18 10:57 Dose: 40 mg Azithromycin 500 mg/ Dextrose 255 mls @ 250 mls/hr IV Q24 [facility] Last Admin: 09/10/18 12:30 Dose: 250 mls/hr Ceftriaxone Sodium (Rocephin) 1 gm in 50 mls @ 100 mls/hr IV Q12 [facility] Last Admin: 09/10/18 11:01 Dose: 100 mls/hr Sodium Chloride () 250 mls @ 15 mls/hr IV .[id number] PRN PRN Reason: SALINE FLUSH Sodium Chloride () 1,000 mls @ 100 mls/hr IV .Q10H [facility] Last Admin: 09/10/18 02:21 Dose: Not Given Insulin Human Lispro (Humalog Kwikpen (Bkc)) 16 unit SC BREAKFAST [facility] Last Admin: 09/10/18 08:47 Dose: 16 u Insulin Human Lispro (Humalog Kwikpen (Bkc)) 0 unit SC ACHS [facility]; Protocol Last Admin: 09/10/18 12:30 Dose: 8 units Isosorbide Mononitrate (Imdur) 90 mg PO DAILY [facility] Last Admin: 09/10/18 08:57 Dose: 90 mg Levothyroxine Sodium (Synthroid) 100 mcg PO DAILY@0600 [facility] Last Admin: 09/10/18 05:24 Dose: 100 mcg Magnesium Hydroxide (Milk Of Magnesia) 30 ml PO DAILY PRN PRN PRN Reason: Constipation Metoprolol Tartrate (Lopressor (Beta Kaye)) 100 mg PO BID [facility] Last Admin: 09/10/18 08:49 Dose: 100 mg Pantoprazole Sodium (Protonix) 20 mg PO DAILY [facility] Last Admin: 09/10/18 10:57 Dose: 20 mg Sodium Chloride () 5 - 15 ml IV UD PRN PRN Reason: SALINE FLUSH Last Admin: 09/10/18 11:00 Dose: 10 ml Clinical Impression(s) from Imaging Studies Chest X-Ray 09/09/18 17:15 IMPRESSION: Possible right upper lobe infiltrate medially. Cardiomegaly. Electronically Signed: Rashaun Glasgow DO at 18:25 EST Tel [phone], Service support , Brain CT 09/09/18 17:17 IMPRESSION: Normal unenhanced CT scan of the brain. Electronically Signed: Kamari Andino MD at 18:08 EST , Service support , Code Visit Inpatient E&M: [id number] Subs Hosp L3
--- NOTE | 2018-09-10 15:00 | CASEMGMT ---
BLAKE called Keara, patient's watch caser from [facility]. BLAKE let her know patient wants a new raised toilet seat and a new figurine maker. Keara said the rts would be through her insurance. Charley ROLAND MSW
--- NOTE | 2018-09-10 15:57 | CASEMGMT ---
Per [facility], they can start pt on Friday09/14/18. Discharge instructions/summary to be faxed when dispo complete to [place]. Magui SANTOS CM
[2018-09-10 16:31] LABS: Amphetamine Urine VISTA NEGATIVE (<1000 ng/mL); Barbiturate Urine VISTA NEGATIVE (< 200 ng/mL); Benzodiazepine Urine VISTA NEGATIVE (< 200 ng/mL); Cocaine Urine VISTA NEGATIVE (< 300 ng/mL); Ecstacy Urine VISTA NEGATIVE (< 500 ng/mL); Methadone Urine VISTA NEGATIVE (< 300 ng/mL); PCP Urine VISTA NEGATIVE (< 25 ng/mL); THC Urine VISTA NEGATIVE (< 50 ng/mL); Vista UDS pH Range 6
[2018-09-10 16:40] LABS: Bedside Glucose 360 mg/dL (70-110)
[2018-09-10] MEDS: Atorvastatin Calcium 40 MG Tablet PO (21:42)
[2018-09-10 21:50] LABS: Bedside Glucose 322 mg/dL (70-110)
[2018-09-10] MEDS: BENZOCAINE/MENTHOL 1 LOZENGE 2 LOZENGE MUCOUS MEM (23:47)
[2018-09-11] VITALS (9 sets, daily range): BP systolic 128; BP diastolic 78–91; PULSE 66–100; RESP 14–17; TEMP 36.4–36.8; O2SAT 98
[2018-09-11] MEDS: BENZOCAINE/MENTHOL 1 LOZENGE 2 LOZENGE MUCOUS MEM (02:52)
[2018-09-11] MEDS: Levothyroxine 100 MCG Tablet PO (06:09)
[2018-09-11] MEDS: Acetaminophen 500 MG Tablet 1000 MG PO (06:19)
[2018-09-11 06:41] LABS: Bedside Glucose 372 mg/dL (70-110)
[2018-09-11] MEDS: Insulin Lispro 100 UNIT/ML INSULN.PEN SC ×2 (08:57→12:14)
[2018-09-11] MEDS: Aspirin E.C. 81 MG Tablet PO (08:59)
[2018-09-11] MEDS: Insulin Lispro 100 UNIT/ML INSULN.PEN 16 UNIT SC (08:59)
[2018-09-11] MEDS: busPIRone 15 MG TABLET 7.5 MG PO (08:59)
[2018-09-11] MEDS: DULoxetine Hcl 60 MG Capsule PO (09:00)
[2018-09-11] MEDS: Docusate Sodium 100 MG Capsule PO (09:00)
[2018-09-11] MEDS: Isosorbide Mononitrate 30 MG Tablet 90 MG PO (09:00)
[2018-09-11] MEDS: APIXABAN 2.5 MG TABLET PO (09:00)
[2018-09-11] MEDS: Furosemide 40 MG Tablet PO (09:01)
[2018-09-11] MEDS: Pantoprazole Sodium 20 MG Tablet PO (09:02)
[2018-09-11] MEDS: Metoprolol Tartrate 100 MG Tablet PO (09:02)
--- NOTE | 2018-09-11 10:02 | DCINST_ITS ---
You will use the following diet at home:: Calorie/Carbohydrate Controlled (specify 1200, 1400, etc), Cardiac Discharge Activity: Return to Normal Activity Call your doctor if you observe: Fever of 101 or Higher, Shortness of breath, Dizziness, Fainting spells, Chest pain Allergies/Adverse Reactions: Allergies ciprofloxacin [From Cipro] Allergy (Verified 09/09/18 17:02) Hives latex Allergy (Verified 09/09/18 17:02) matos me niacin [From Niaspan Extended-Release] Allergy (Verified 09/09/18 17:02) Hives ondansetron [From Zofran] Allergy (Verified 09/09/18 17:02) Unknown Xanthines Allergy (Verified 09/09/18 17:02) Unknown orphenadrine citrate [From Norgesic] Adverse Reaction (Verified 09/09/18 17:02) groggy medical tape Adverse Reaction (Uncoded 09/09/18 17:02) blisters Medications to take at Discharge Atorvastatin Calcium [Lipitor] 40 mg PO DAILY 02/03/18 Duloxetine Hcl [Cymbalta] 60 mg PO DAILY 02/03/18 Insulin Lispro [Humalog KwikPen] 22 unit SQ LUNCH 02/03/18 Insulin Lispro [Humalog KwikPen] 24 unit SQ DINNER 02/03/18 Insulin Lispro [Humalog] 16 unit SQ BREAKFAST 02/03/18 Isosorbide Mononitrate [Imdur] 90 mg PO DAILY 02/03/18 Levothyroxine [Synthroid] 100 mcg PO DAILY 02/03/18 Apixaban [Eliquis] 2.5 mg PO BID 05/17/18 Ascorbic Acid [Vitamin C] 500 mg PO DAILY@0800 05/17/18 Omeprazole [Prilosec] 20 mg PO DAILY 05/17/18 Ferrous Gluconate 324 mg PO DAILY 07/22/18 Albuterol IH (ProAir) [Proair Hfa] 2 puff INHALATION Q4H PRN PRN 08/05/18 Acetaminophen [Tylenol] 1,000 mg PO Q8 PRN tablet 08/06/18 Aspirin E.C. [Ecotrin] 81 mg PO DAILY@0800 09/02/18 Buspirone HCl [Buspar] 7.5 mg PO BID 09/02/18 Docusate Sodium [Colace] 100 mg PO DAILY 09/02/18 Furosemide [Lasix] 40 mg PO BID 09/02/18 Metoprolol Tartrate [Lopressor (beta sudhakar)] 100 mg PO BID 09/02/18 Sennosides [Senna] 8.6 mg PO BID 09/02/18 Trueplus Glucose Chew 4 tab PO PRN PRN 09/02/18 Insulin Glargine,Hum.rec.anlog [Lantus] 36 unit SQ BID 09/10/18 Amox/Clavulanate Tablet [Augmentin Tablet] 875 mg PO Q12H #14 tablet 09/11/18 The following prescriptions were given: Amox/Clavulanate Tablet [Augmentin Tablet] 875 mg PO Q12H #14 tablet Primary Care Physician: Bhupendra Oliveira MD [Primary Care Provider] - Please follow up with your Primary Care Physician in: 1 Week Test Results: Test results from this visit will be discussed in further detail at your follow- up appointment, if applicable. Proposed Discharge Date: 09/11/18
--- NOTE | 2018-09-11 10:06 | PCM.DC.SUM ---
<Rosa Hanna - Last Filed: 09/11/18 10:14> Discharge Date and Diagnosis Date of Admission: 09/09/18 Date of Discharge: 09/11/18 - Primary Discharge Diagnosis 1. Acute metabolic encephalopathy secondary to acute community-acquired pneumonia and acute kidney injury 2. Acute community-acquired pneumonia 3. Acute kidney injury, resolved 4. Paroxysmal atrial fibrillation 5. Hypothyroidism 6. Type 2 diabetes mellitus 7. Anxiety/depression 8. CAD 9. Chronic COPD with chronic hypoxic respiratory failure - Secondary Discharge Diagnosis Chronic Problems Paroxysmal A-fib (Chronic) Diabetes mellitus type 2 in obese (Chronic) Coronary arteriosclerosis (Chronic) cath 05/2015 mild-moderate disease medical therapy recommended Hypothyroidism (Chronic) Hyperlipemia (Chronic) GERD (gastroesophageal reflux disease) (Chronic) Hypertension (Chronic) COPD (chronic obstructive pulmonary disease) (Chronic) Chronic respiratory insufficiency (Chronic) On home oxygen at night S/P PTCA (percutaneous transluminal coronary angioplasty) (Chronic) PARESH (obstructive sleep apnea) (Chronic) non-complaint with CPAP Hospital Course and Treatment Imaging Results: Diagnostic Data Chest X-Ray 09/09/18 17:15 IMPRESSION: Possible right upper lobe infiltrate medially. Cardiomegaly. Electronically Signed: Rashaun Glasgow DO at 18:25 EST Tel [phone], Service support , Brain CT 09/09/18 17:17 IMPRESSION: Normal unenhanced CT scan of the brain. Electronically Signed: Kamari Andino MD at 18:08 EST , Service support , Operations: None Procedures: None Summary of Care Provided: The patient is a 63 year old F admitted 09/09/2018 due to cough and generalized malaise. Patient was noted to have lethargy and confusion on admission. 1. Acute metabolic encephalopathy secondary to acute community-acquired pneumonia and TITI-chest x-ray admission with right upper lobe infiltrate. Brain CT unremarkable. Patient received IV Rocephin and IV azithromycin. Mental status improved. Respiratory panel negative. Patient will be discharged on Augmentin 875 p.o. twice daily for 7 days at discharge. Follow-up with primary care physician in 1 week. 2. Acute kidney injury-resolved with IV fluids. 3. Paroxysmal atrial fibrillation-rate controlled. Continue metoprolol and Eliquis. 4. Hypothyroidism-continue Synthroid. 5. Anxiety/depression- continue buspar/cymbalta. 6. GERD- continue PPI. 7. CAD-continue aspirin, statin, metoprolol, imdur. 8. Chronic COPD with chronic hypoxic respiratory failure-no acute exacerbation. On baseline home O2. 9. Type 2 diabetes mellitus-continue home insulin regimen. Recent hemoglobin A1c 09/02/2018 and 7.4%. General: Alert, Oriented x3, Cooperative, No apparent distress HEENT: Atraumatic, PERRLA, EOMI, Normocephalic Oral: Moist Mucosa Neck: Supple, No JVD, Negative Carotid Bruits Lungs: Clear to auscultation, Diminished Cardiovascular: Atrial fibrillation, rate controlled Abdomen: Bowel Sounds Present, Soft, Non Tender, Non-Distended Extremities: No clubbing, No cyanosis, No edema, Capillary Refill Less than 3 Seconds Skin: No rashes, No breakdown Musculoskeletal: No Tenderness to Palpation of Joints or Extremities Neurological: Cranial nerves II-XII grossly intact, Neuro grossly intact Psych/Mental Status: Normal Affect, Appropriate Patient seen and examined prior to discharge. Physical assessment as noted above. Patient is stable for discharge with follow up recommendations as noted above. This patient was seen by IZABELA Kraus under the supervision of Dr. Hogan. - Physical Exam Vital Signs Temp Pulse Resp BP Pulse Ox 97.5 F L 97 17 128/91 H 98 09/11/18 08:46 09/11/18 09:02 09/11/18 08:46 09/11/18 08:46 09/11/18 08:46 Oxygen Flow Rate (L/min) 3 Oxygen Delivery Method Nasal Cannula Weight: 205 lb 0.478 oz Body Mass Index (BMI) 37.5 Finger Stick Blood Glucose 263 Intake and Output for Last 24 Hours 09/09/18 09/10/18 09/11/18 23:59 23:59 23:59 Intake Total 265 / 265 3176.4 / 3176.4 200 / 200 Output Total 800 / 800 200 / 200 Balance 265 / 265 2376.4 / 2376.4 0 / 0 Microbiology Past 72 Hours 09/10/18 02:45 Respiratory Panel (PCR) - Final Mucosa - Nasopharyngeal Laboratory Tests Past 24 Hrs 09/10/18 15:37 Urine Opiates Screen NEGATIVE Urine Methadone Screen NEGATIVE Ur Barbiturates Screen NEGATIVE Ur Phencyclidine Scrn NEGATIVE Ur Amphetamines Screen NEGATIVE U Methamphetamin-MDMA NEGATIVE U Benzodiazepines Scrn NEGATIVE Urine Cocaine Screen NEGATIVE U Cannabinoids Screen NEGATIVE Ur Drug Screen Comment POC Glucose 09/11/18 09/10/18 09/10/18 06:38 21:27 16:28 POC Glucose 372 H 322 H 360 H 09/10/18 11:22 POC Glucose 352 H Discharge Diet: Low fat/ Low Cholesterol, Carb Control Diet Discharge Activity: Return to Normal Activity Call your doctor if you observe: Fever of 101 or Higher, Shortness of breath, Dizziness, Fainting spells, Chest pain Home Medications: Medications to take at Discharge Atorvastatin Calcium [Lipitor] 40 mg PO DAILY 02/03/18 Duloxetine Hcl [Cymbalta] 60 mg PO DAILY 02/03/18 Insulin Lispro [Humalog KwikPen] 22 unit SQ LUNCH 02/03/18 Insulin Lispro [Humalog KwikPen] 24 unit SQ DINNER 02/03/18 Insulin Lispro [Humalog] 16 unit SQ BREAKFAST 02/03/18 Isosorbide Mononitrate [Imdur] 90 mg PO DAILY 02/03/18 Levothyroxine [Synthroid] 100 mcg PO DAILY 02/03/18 Apixaban [Eliquis] 2.5 mg PO BID 05/17/18 Ascorbic Acid [Vitamin C] 500 mg PO DAILY@0800 05/17/18 Omeprazole [Prilosec] 20 mg PO DAILY 05/17/18 Ferrous Gluconate 324 mg PO DAILY 07/22/18 Albuterol IH (ProAir) [Proair Hfa] 2 puff INHALATION Q4H PRN PRN 08/05/18 Acetaminophen [Tylenol] 1,000 mg PO Q8 PRN tablet 08/06/18 Aspirin E.C. [Ecotrin] 81 mg PO DAILY@0800 09/02/18 Buspirone HCl [Buspar] 7.5 mg PO BID 09/02/18 Docusate Sodium [Colace] 100 mg PO DAILY 09/02/18 Furosemide [Lasix] 40 mg PO BID 09/02/18 Metoprolol Tartrate [Lopressor (beta sudhakar)] 100 mg PO BID 09/02/18 Sennosides [Senna] 8.6 mg PO BID 09/02/18 Trueplus Glucose Chew 4 tab PO PRN PRN 09/02/18 Insulin Glargine,Hum.rec.anlog [Lantus] 36 unit SQ BID 09/10/18 Amox/Clavulanate Tablet [Augmentin Tablet] 875 mg PO Q12H #14 tablet 09/11/18 Following Prescrptions Were Given to Patient: Amox/Clavulanate Tablet [Augmentin Tablet] 875 mg PO Q12H #14 tablet Primary Care Physician: Bhupendra Oliveira MD [Primary Care Provider] - Please follow up with your Primary Care Physician in: 1 Week Disposition: Home with Home Health Minutes spent on discharge:: 35 Patient Condition:: Stable Medical Necessity - Tobacco Use Smoking Status: Former smoker Meaningful Use Info Meaningful Use Diagnoses (Choose all that apply): None applicable <Yvon Hogan - Last Filed: 09/11/18 12:43> Discharge Date and Diagnosis - Secondary Discharge Diagnosis Chronic Problems Paroxysmal A-fib (Chronic) Diabetes mellitus type 2 in obese (Chronic) Coronary arteriosclerosis (Chronic) cath 05/2015 mild-moderate disease medical therapy recommended Hypothyroidism (Chronic) Hyperlipemia (Chronic) GERD (gastroesophageal reflux disease) (Chronic) Hypertension (Chronic) COPD (chronic obstructive pulmonary disease) (Chronic) Chronic respiratory insufficiency (Chronic) On home oxygen at night S/P PTCA (percutaneous transluminal coronary angioplasty) (Chronic) PARESH (obstructive sleep apnea) (Chronic) non-complaint with CPAP Hospital Course and Treatment Summary of Care Provided: This patient was seen in conjunction with IZABELA Kraus . I have independently interviewed and examined the patient and reviewed pertinent historical, laboratory, and other data. Please refer to IZABELA Kraus note for details of this patient's presentation, findings, and recommendations. I have reviewed IZABELA Kraus note and concur with documented findings. In brief, patient is a 63-year-old who presented with altered mental status and shortness of breath and assessment of pneumonia made admitted to a monitored bed for further management Assessment: 1. Acute metabolic encephalopathy secondary to acute kidney injury 2. Community-acquired pneumonia 3. Paroxysmal atrial fibrillation on metoprolol and Eliquis 4. Assessment hypertension 5. Depression with anxiety 6. GERD 7. COPD no exacerbation 8. Coronary artery disease 9. DVT prophylaxis on [facility] course: As elicited above by Rosa Hanna [employer]PL[employer] - Physical Exam Vital Signs Temp Pulse Resp BP Pulse Ox 97.5 F L 97 17 128/91 H 98 09/11/18 08:46 09/11/18 09:02 09/11/18 08:46 09/11/18 08:46 09/11/18 08:46 Oxygen Flow Rate (L/min) 3 Oxygen Delivery Method Nasal Cannula Weight: 93 kg Body Mass Index (BMI) 37.5 Finger Stick Blood Glucose 263 Intake and Output for Last 24 Hours 09/09/18 09/10/18 09/11/18 23:59 23:59 23:59 Intake Total 265 / 265 3176.4 / 3176.4 985 / 985 Output Total 800 / 800 200 / 200 Balance 265 / 265 2376.4 / 2376.4 785 / 785 Microbiology Past 72 Hours 09/10/18 02:45 Respiratory Panel (PCR) - Final Mucosa - Nasopharyngeal Laboratory Tests Past 24 Hrs 09/10/18 15:37 Urine Opiates Screen NEGATIVE Urine Methadone Screen NEGATIVE Ur Barbiturates Screen NEGATIVE Ur Phencyclidine Scrn NEGATIVE Ur Amphetamines Screen NEGATIVE U Methamphetamin-MDMA NEGATIVE U Benzodiazepines Scrn NEGATIVE Urine Cocaine Screen NEGATIVE U Cannabinoids Screen NEGATIVE Ur Drug Screen Comment POC Glucose 09/11/18 09/11/18 09/10/18 12:02 06:38 21:27 POC Glucose 472 H* 372 H 322 H 09/10/18 16:28 POC Glucose 360 H Code Visit Inpatient E&M: 57066 Disch Hosp
[2018-09-11] MEDS: Ceftriaxone 1 GM/50 ML BAG IV (10:11)
[2018-09-11] MEDS: 0.9% NaCl Peripheral Flush Adult/Peds IV (10:12)
--- NOTE | 2018-09-11 10:13 | DS.PCM_ITS ---
<Rosa Hanna - Last Filed: 09/11/18 10:14> Discharge Date and Diagnosis Date of Admission: 09/09/18 Date of Discharge: 09/11/18 - Primary Discharge Diagnosis 1. Acute metabolic encephalopathy secondary to acute community-acquired pneumonia and acute kidney injury 2. Acute community-acquired pneumonia 3. Acute kidney injury, resolved 4. Paroxysmal atrial fibrillation 5. Hypothyroidism 6. Type 2 diabetes mellitus 7. Anxiety/depression 8. CAD 9. Chronic COPD with chronic hypoxic respiratory failure - Secondary Discharge Diagnosis Chronic Problems Paroxysmal A-fib (Chronic) Diabetes mellitus type 2 in obese (Chronic) Coronary arteriosclerosis (Chronic) cath 05/2015 mild-moderate disease medical therapy recommended Hypothyroidism (Chronic) Hyperlipemia (Chronic) GERD (gastroesophageal reflux disease) (Chronic) Hypertension (Chronic) COPD (chronic obstructive pulmonary disease) (Chronic) Chronic respiratory insufficiency (Chronic) On home oxygen at night S/P PTCA (percutaneous transluminal coronary angioplasty) (Chronic) PARESH (obstructive sleep apnea) (Chronic) non-complaint with CPAP Hospital Course and Treatment Imaging Results: Diagnostic Data Chest X-Ray 09/09/18 17:15 IMPRESSION: Possible right upper lobe infiltrate medially. Cardiomegaly. Electronically Signed: Rashaun Glasgow DO at 18:25 EST Tel [phone], Service support , Brain CT 09/09/18 17:17 IMPRESSION: Normal unenhanced CT scan of the brain. Electronically Signed: Kamari Andino MD at 18:08 EST , Service support , Operations: None Procedures: None Summary of Care Provided: The patient is a 63 year old F admitted 09/09/2018 due to cough and generalized malaise. Patient was noted to have lethargy and confusion on admission. 1. Acute metabolic encephalopathy secondary to acute community-acquired pneumonia and TITI-chest x-ray admission with right upper lobe infiltrate. Brain CT unremarkable. Patient received IV Rocephin and IV azithromycin. Mental status improved. Respiratory panel negative. Patient will be discharged on Augmentin 875 p.o. twice daily for 7 days at discharge. Follow-up with primary care physician in 1 week. 2. Acute kidney injury-resolved with IV fluids. 3. Paroxysmal atrial fibrillation-rate controlled. Continue metoprolol and Eliquis. 4. Hypothyroidism-continue Synthroid. 5. Anxiety/depression- continue buspar/cymbalta. 6. GERD- continue PPI. 7. CAD-continue aspirin, statin, metoprolol, imdur. 8. Chronic COPD with chronic hypoxic respiratory failure-no acute exacerbation. On baseline home O2. 9. Type 2 diabetes mellitus-continue home insulin regimen. Recent hemoglobin A1c 09/02/2018 and 7.4%. General: Alert, Oriented x3, Cooperative, No apparent distress HEENT: Atraumatic, PERRLA, EOMI, Normocephalic Oral: Moist Mucosa Neck: Supple, No JVD, Negative Carotid Bruits Lungs: Clear to auscultation, Diminished Cardiovascular: Atrial fibrillation, rate controlled Abdomen: Bowel Sounds Present, Soft, Non Tender, Non-Distended Extremities: No clubbing, No cyanosis, No edema, Capillary Refill Less than 3 Seconds Skin: No rashes, No breakdown Musculoskeletal: No Tenderness to Palpation of Joints or Extremities Neurological: Cranial nerves II-XII grossly intact, Neuro grossly intact Psych/Mental Status: Normal Affect, Appropriate Patient seen and examined prior to discharge. Physical assessment as noted above. Patient is stable for discharge with follow up recommendations as noted above. This patient was seen by IZABELA Kraus under the supervision of Dr. Hogan. - Physical Exam Vital Signs Temp Pulse Resp BP Pulse Ox 97.5 F L 97 17 128/91 H 98 09/11/18 08:46 09/11/18 09:02 09/11/18 08:46 09/11/18 08:46 09/11/18 08:46 Oxygen Flow Rate (L/min) 3 Oxygen Delivery Method Nasal Cannula Weight: 205 lb 0.478 oz Body Mass Index (BMI) 37.5 Finger Stick Blood Glucose 263 Intake and Output for Last 24 Hours 09/09/18 09/10/18 09/11/18 23:59 23:59 23:59 Intake Total 265 / 265 3176.4 / 3176.4 200 / 200 Output Total 800 / 800 200 / 200 Balance 265 / 265 2376.4 / 2376.4 0 / 0 Microbiology Past 72 Hours 09/10/18 02:45 Respiratory Panel (PCR) - Final Mucosa - Nasopharyngeal Laboratory Tests Past 24 Hrs 09/10/18 15:37 Urine Opiates Screen NEGATIVE Urine Methadone Screen NEGATIVE Ur Barbiturates Screen NEGATIVE Ur Phencyclidine Scrn NEGATIVE Ur Amphetamines Screen NEGATIVE U Methamphetamin-MDMA NEGATIVE U Benzodiazepines Scrn NEGATIVE Urine Cocaine Screen NEGATIVE U Cannabinoids Screen NEGATIVE Ur Drug Screen Comment POC Glucose 09/11/18 09/10/18 09/10/18 06:38 21:27 16:28 POC Glucose 372 H 322 H 360 H 09/10/18 11:22 POC Glucose 352 H Discharge Diet: Low fat/ Low Cholesterol, Carb Control Diet Discharge Activity: Return to Normal Activity Call your doctor if you observe: Fever of 101 or Higher, Shortness of breath, Dizziness, Fainting spells, Chest pain Home Medications: Medications to take at Discharge Atorvastatin Calcium [Lipitor] 40 mg PO DAILY 02/03/18 Duloxetine Hcl [Cymbalta] 60 mg PO DAILY 02/03/18 Insulin Lispro [Humalog KwikPen] 22 unit SQ LUNCH 02/03/18 Insulin Lispro [Humalog KwikPen] 24 unit SQ DINNER 02/03/18 Insulin Lispro [Humalog] 16 unit SQ BREAKFAST 02/03/18 Isosorbide Mononitrate [Imdur] 90 mg PO DAILY 02/03/18 Levothyroxine [Synthroid] 100 mcg PO DAILY 02/03/18 Apixaban [Eliquis] 2.5 mg PO BID 05/17/18 Ascorbic Acid [Vitamin C] 500 mg PO DAILY@0800 05/17/18 Omeprazole [Prilosec] 20 mg PO DAILY 05/17/18 Ferrous Gluconate 324 mg PO DAILY 07/22/18 Albuterol IH (ProAir) [Proair Hfa] 2 puff INHALATION Q4H PRN PRN 08/05/18 Acetaminophen [Tylenol] 1,000 mg PO Q8 PRN tablet 08/06/18 Aspirin E.C. [Ecotrin] 81 mg PO DAILY@0800 09/02/18 Buspirone HCl [Buspar] 7.5 mg PO BID 09/02/18 Docusate Sodium [Colace] 100 mg PO DAILY 09/02/18 Furosemide [Lasix] 40 mg PO BID 09/02/18 Metoprolol Tartrate [Lopressor (beta sudhakar)] 100 mg PO BID 09/02/18 Sennosides [Senna] 8.6 mg PO BID 09/02/18 Trueplus Glucose Chew 4 tab PO PRN PRN 09/02/18 Insulin Glargine,Hum.rec.anlog [Lantus] 36 unit SQ BID 09/10/18 Amox/Clavulanate Tablet [Augmentin Tablet] 875 mg PO Q12H #14 tablet 09/11/18 Following Prescrptions Were Given to Patient: Amox/Clavulanate Tablet [Augmentin Tablet] 875 mg PO Q12H #14 tablet Primary Care Physician: Bhupendra Oliveira MD [Primary Care Provider] - Please follow up with your Primary Care Physician in: 1 Week Disposition: Home with Home Health Minutes spent on discharge:: 35 Patient Condition:: Stable Medical Necessity - Tobacco Use Smoking Status: Former smoker Meaningful Use Info Meaningful Use Diagnoses (Choose all that apply): None applicable <Yvon Hogan - Last Filed: 09/11/18 12:43> Discharge Date and Diagnosis - Secondary Discharge Diagnosis Chronic Problems Paroxysmal A-fib (Chronic) Diabetes mellitus type 2 in obese (Chronic) Coronary arteriosclerosis (Chronic) cath 05/2015 mild-moderate disease medical therapy recommended Hypothyroidism (Chronic) Hyperlipemia (Chronic) GERD (gastroesophageal reflux disease) (Chronic) Hypertension (Chronic) COPD (chronic obstructive pulmonary disease) (Chronic) Chronic respiratory insufficiency (Chronic) On home oxygen at night S/P PTCA (percutaneous transluminal coronary angioplasty) (Chronic) PARESH (obstructive sleep apnea) (Chronic) non-complaint with CPAP Hospital Course and Treatment Summary of Care Provided: This patient was seen in conjunction with IZABELA Kraus . I have independently interviewed and examined the patient and reviewed pertinent historical, laboratory, and other data. Please refer to IZABELA Kraus note for details of this patient's presentation, findings, and recommendations. I have reviewed IZABELA Kraus note and concur with documented fi ndings. In brief, patient is a 63-year-old who presented with altered mental status and shortness of breath and assessment of pneumonia made admitted to a monitored bed for further management Assessment: 1. Acute metabolic encephalopathy secondary to acute kidney injury 2. Community-acquired pneumonia 3. Paroxysmal atrial fibrillation on metoprolol and Eliquis 4. Assessment hypertension 5. Depression with anxiety 6. GERD 7. COPD no exacerbation 8. Coronary artery disease 9. DVT prophylaxis on [facility] course: As elicited above by Rosa Hanna MANAGER OF [employer]-C - Physical Exam Vital Signs Temp Pulse Resp BP Pulse Ox 97.5 F L 97 17 128/91 H 98 09/11/18 08:46 09/11/18 09:02 09/11/18 08:46 09/11/18 08:46 09/11/18 08:46 Oxygen Flow Rate (L/min) 3 Oxygen Delivery Method Nasal Cannula Weight: 93 kg Body Mass Index (BMI) 37.5 Finger Stick Blood Glucose 263 Intake and Output for Last 24 Hours 09/09/18 09/10/18 09/11/18 23:59 23:59 23:59 Intake Total 265 / 265 3176.4 / 3176.4 985 / 985 Output Total 800 / 800 200 / 200 Balance 265 / 265 2376.4 / 2376.4 785 / 785 Microbiology Past 72 Hours 09/10/18 02:45 Respiratory Panel (PCR) - Final Mucosa - Nasopharyngeal Laboratory Tests Past 24 Hrs 09/10/18 15:37 Urine Opiates Screen NEGATIVE Urine Methadone Screen NEGATIVE Ur Barbiturates Screen NEGATIVE Ur Phencyclidine Scrn NEGATIVE Ur Amphetamines Screen NEGATIVE U Methamphetamin-MDMA NEGATIVE U Benzodiazepines Scrn NEGATIVE Urine Cocaine Screen NEGATIVE U Cannabinoids Screen NEGATIVE Ur Drug Screen Comment POC Glucose 09/11/18 09/11/18 09/10/18 12:02 06:38 21:27 POC Glucose 472 H* 372 H 322 H 09/10/18 16:28 POC Glucose 360 H Code Visit Inpatient E&M: 46560 Disch Hosp
--- NOTE | 2018-09-11 10:15 | CASEMGMT ---
Pt's discharge instructions faxed to [facility] at this time and call to [facility] to notify, Chloe, that pt will be discharged today, voices understanding. Will fax D/C summary when obtained. Magui SANTOS CM
--- NOTE | 2018-09-11 10:21 | CASEMGMT ---
BLAKE received a vm from [facility]. She was wondering if patient is being discharged today and if there are any new concerns with her home situation. BLAKE called [facility] back and left her a vm letting her know patient is being discharged today. BLAKE also let her know there is nothing new with her home situation. Plan: home with resumption of services through [facility] and [facility]. Charley ROLAND MSW
--- NOTE | 2018-09-11 10:24 | CASEMGMT ---
Pt updated on [facility] referral, voices understanding and gratitude to this RN CM at this time. Pt voices no further questions/concerns/needs at this time. SStaten TOM ROCHA
--- NOTE | 2018-09-11 11:41 | CASEMGMT ---
Discharge summary faxed to [facility] at this time. Magui SANTOS CM
[2018-09-11 12:21] LABS: Bedside Glucose 472 mg/dL (70-110)
[2018-09-11] MEDS: Insulin Lispro 100 UNIT/ML INSULN.PEN 6 UNIT SC (13:08)
--- NOTE | 2018-09-14 14:23 | CASEMGMT ---
TOM DC F/U phone call. DC Date: 09/11/18 DC Dispostion: Home with [facility]. Attempted call. Phone busy. Yobany PACHECO RN AC
== END 2018-09-11 14:31 | disposition home health service (06) | DRG 193 ==
LOC: ED 18:09 → PCU 20:05
PROVIDERS: Nurse Practitioner Family; Admitting Provider Student in an Organized Health Care Education/Training Program; Emergency Provider Emergency Medicine; Family Provider Family Medicine; PCP Family Medicine; Referring Provider Student in an Organized Health Care Education/Training Program; Visit Provider Internal Medicine
DX: J18.9 Pneumonia, unspecified organism (principal); G93.41 Metabolic encephalopathy; J96.11 Chronic respiratory failure with hypoxia; J44.0 Chronic obstructive pulmonary disease with (acute) lower respiratory infection; I48.0 Paroxysmal atrial fibrillation; E03.9 Hypothyroidism, unspecified; E11.9 Type 2 diabetes mellitus without complications; I25.10 Atherosclerotic heart disease of native coronary artery without angina pectoris; E78.5 Hyperlipidemia, unspecified; K21.9 Gastro-esophageal reflux disease without esophagitis; Z99.81 Dependence on supplemental oxygen; G47.33 Obstructive sleep apnea (adult) (pediatric); Z98.61 Coronary angioplasty status; Z79.4 Long term (current) use of insulin; Z87.891 Personal history of nicotine dependence
CPT/HCPCS: 36415; 36600; 70450; 71045; 80048; 80076; 80307; 81001; 82803; 82962; 83690; 83880; 84484; 85025; 87633; 93005; 97161; 97166; 97530; 99285; J7050; P9612; A4216

== ENCOUNTER 2018-11-27 12:01 | Emergency (ER) | payer MEDICARE, SELFPAY ==
[2018-11-27] VITALS (7 sets, daily range): BP systolic 105–137; BP diastolic 78–100; PULSE 87–121; RESP 17–23; TEMP 36.9; O2SAT 95–99; BMI 37.5; BMI 38.7
--- NOTE | 2018-11-27 12:50 | EKG12_ITS ---
Test Reason : CP Blood Pressure : / mmHG Vent. Rate : 103 BPM Atrial Rate : 088 BPM P-R Int : 000 ms QRS Dur : 080 ms QT Int : 374 ms P-R-T Axes : 000 -16 143 degrees QTc Int : 489 ms Atrial fibrillation with rapid ventricular response T wave abnormality, consider lateral ischemia Abnormal ECG Confirmed by ALETA ABRAHAM, ALVAREZ ([id number]), slot editor SHYANNE TERRAZAS ([id number]) on 12/01/2018 9:12:31 AM Referred By: OSIEL
--- NOTE | 2018-11-27 13:30 | RAD_ITS ---
STUDY: X-RAY CHEST REASON FOR EXAM: Female, 63 years old. Chest pain TECHNIQUE: Portable upright chest COMPARISON: 09/09/2018 chest x-ray.. FINDINGS: Stable cardiomegaly. Normal mediastinal silhouette, tracie and pleural margins. Clear bilateral lungs. No acute osseous or upper abdominal process. RAD/Chest 1 View (Portable) IMPRESSION: No acute cardiopulmonary process. Electronically Signed: Giorgio Jordan MD at 15:01 EST Tel , Service support ,
[2018-11-27] MEDS: morphine 10 MG/ML Syringe 2 MG SC (14:06)
[2018-11-27 14:15] LABS: Absolute Lymphocyte Count 1.24 X10^3/ul (0.83-4.51); Absolute Neutrophil Count 4.8 X10^3/uL (2.0-7.7); Basophil# 0.02 X10^3/uL; Basophil% 0.3 % (0-1); Eosinophils% 4.2 % (0-5); Hematocrit 42.6 % (37-47); Hemoglobin 13.5 g/dl (12.0-15.0); Lymphocyte # 1.24 X10^3/ul (4.0); Lymphocyte % 17.2 % (19-41); Mean Corp Hgb Conc 31.7 g/gl (32-36); Mean Corpuscular Hgb 29.9 pg (27.0-32.0); Mean Corpuscular Volume 94.2 fL (81-99); Mean Platelet Vol. 10.6 fl (6.2-12.0); Monocyte# 0.79 X10^3/uL; Neutrophil # 4.83 X10^3/uL (2.7-7.7); POSITIVE COUNT NO; POSITIVE DIFFERENTIAL NO; POSITIVE MORPHOLOGY NO; Platelet Count 140 K/mm3 (150-450); RBC Distribution Width CV 13.6 % (11.6-14.6); RBC Distribution Width SD 46.7 fl (35.1-43.9); Red Blood Count 4.52 M/mm3 (4.2-5.4); White Blood Count 7.2 K/mm3 (4.4-11.0)
[2018-11-27 14:28] LABS: Anion Gap 7 (5-15); BUN 16 mg/dL (7-18); BUN/Creat Ratio 24.2 RATIO (10-20); Chloride 108 mmol/L (98-107); Creatinine, Serum 0.66 mg/dL (0.55-1.02); EST Glomerular Filtration Rate 96 mL/min (>60); Est Glom Filt Rate - Afr Amer 116 mL/min (>60); Glucose 98 mg/dL (74-106); Potassium 3.8 mmol/L (3.5-5.1); Sodium Level 138 mmol/L (136-145)
--- NOTE | 2018-11-27 15:50 | ED.DCSUM_ITS ---
History of Present Illness Chief Complaint: Chest Pain Informant: Patient Onset: Weeks - several; worse in past 2 days Timing: Waxes and wanes - but present most of the time Quality: heaviness Location: substernal, more to the right. no radiation. Current Severity: Moderate Maximum Severity: Moderate Worsened by: nothing. nonexertional, nonpleuritic. Relieved by: nothing in particular Associated Symptoms: sweats today Narrative: No lightheadedness or palpitations, although sometimes she feels her heart racing and feels lightheaded separate from the chest discomfort. Has a history of A. fib for which she is anticoagulated. No shortness of breath associated wi th the discomfort. Had a remote cardiac stent. States she had a heart cath less than 1 year ago that showed no critical coronary disease. - Past Medical History (1) COPD (chronic obstructive pulmonary disease) Status: Chronic (2) Chronic respiratory insufficiency Status: Chronic Comment: On home oxygen at night (3) Coronary arteriosclerosis Status: Chronic Comment: cath 05/2015 mild-moderate disease medical therapy recommended (4) Diabetes mellitus type 2 in obese Status: Chronic (5) GERD (gastroesophageal reflux disease) Status: Chronic (6) Hyperlipemia Status: Chronic (7) Hypertension Status: Chronic (8) Hypothyroidism Status: Chronic (9) PARESH (obstructive sleep apnea) Status: Chronic Comment: non-complaint with CPAP (10) Paroxysmal A-fib Status: Chronic (11) S/P PTCA (percutaneous transluminal coronary angioplasty) Status: Chronic Past Medical History - Allergies and Home Meds Allergies/Adverse Reactions: Allergies ciprofloxacin [From Cipro] Allergy (Verified 09/09/18 17:02) Hives latex Allergy (Verified 09/09/18 17:02) matos me niacin [From Niaspan Extended-Release] Allergy (Verified 09/09/18 17:02) Hives ondansetron [From Zofran] Allergy (Verified 09/09/18 17:02) Unknown Xanthines Allergy (Verified 09/09/18 17:02) Unknown orphenadrine citrate [From Norgesic] Adverse Reaction (Verified 09/09/18 17:02) groggy medical tape Adverse Reaction (Uncoded 09/09/18 17:02) blisters Primary Care Physician: Bhupendra Oliveira MD [Primary Care Provider] - Surgical History: angioplasty, cholecystectomy, herniorrhaphy, hysterectomy, - - tubal ligation. Smoking Status: Former smoker Drugs: None - Family History Sibling Family History: Reports: COPD - in sister. Maternal Family History: Reports: No pertinent history Paternal Family History: Reports: Heart Disease, Stroke - age 62 Offspring Family History: Reports: No pertinent history - 5 children, 32 grand children an d great grandchildren Review of Systems General: Denies: Chills, Fever, Sweats Eyes: Denies: Visual changes - bilaterally, Diplopia ENT: Denies: Rhinorrhea, Sore throat Cardiovascular: Reports: Chest pain, Heart racing - at times Respiratory: Reports: Cough - chronic, no worse, Dyspnea on exertion - chronic, no worse. Denies: Dyspnea Gastrointestinal: Denies: Abdominal pain, Nausea, Vomiting, Diarrhea, Melena, Hematochezia Genitourinary: Denies: Dysuria, Hematuria, Frequency Musculoskeletal: Reports: Swelling - BLE chronic, no worse. Denies: Back pain, Extremity Pain Skin: Denies: Rash, Wounds Neurological: Denies: Headache, Weakness, Numbness Physical Exam Vital Signs/Narrative: Vital Signs Temp Pulse Resp BP Pulse Ox 11/27/18 15:04 87 17 131/82 H 99 11/27/18 14:09 106 H 18 131/78 H 99 11/27/18 13:23 103 H 136/100 H 11/27/18 13:12 96 11/27/18 12:10 117 H 21 H 105/91 H 99 11/27/18 12:07 98.4 F 121 H 23 H 95 Inital Vital Signs reviewed: Yes General: Well nourished, Well developed, Obese, No Acute Distress Head: Normocephalic, Atraumatic Eyes: Perrl, EOMI ENT: Moist mucous membranes, No rhinorrhea Neck: Supple, Nontender, No JVD Cardiovascular: Regular rate, Regular rhythm, No murmurs Respiratory: No distress, CTA bilaterally, Chest nontender Abdomen: Soft, Nontender, Nondistended, Normal bowel sounds Back: Nontender, Normal Inspection Extremities: Nontender, Edema - 2+ BLE. Negative for: Calf Tenderness Skin: Normal color, No rash Neurological: Alert, Oriented x3, Cranial nerves II-XII grossly intact, Normal Strength, Normal Sensation Psychological: Normal affect, Normal Mood Diagnostic/Tx/Re-eval Impressions Chest X-Ray 11/27/18 13:30 IMPRESSION: No acute cardiopulmonary process. Electronically Signed: Giorgio Jordan MD at 15:01 EST Tel , Service support , 11/27/18 13:30 Chest 1 View (Portable) [RAD] Stat Laboratory Results 11/27/18 11/27/18 13:50 13:50 WBC 7.2 RBC 4.52 Hgb 13.5 Hct 42.6 MCV 94.2 MCH 29.9 MCHC 31.7 L RDW 13.6 RDW Differential 46.7 H Plt Count 140 L MPV 10.6 Immature Gran % (Auto) 0.300 Neut % (Auto) 67.0 Lymph % (Auto) 17.2 L [place] % (Auto) 11.0 H Eos % (Auto) 4.2 Baso % (Auto) 0.3 Absolute Neuts (auto) 4.8 Absolute Lymphs (auto) 1.24 Total Counted Not Reportable Sodium 138 Potassium 3.8 Chloride 108 H Carbon Dioxide 23.0 Anion Gap 7 BUN 16 Creatinine 0.66 Estim Creat Clear Calc 69.00 Est GFR (MDRD) Af Amer 116 Est GFR (MDRD) Non-Af 96 BUN/Creatinine Ratio 24.2 H Glucose 98 Calcium 8.0 L Troponin I < 0.015 - Rhythm Strip Rhythm Strip: A-fib Rate: 110 Ectopy: None - EKG Initial EKG Interpretation: No Acute Injury Pattern, Atrial Fibrillation, Non-Specific ST Changes - diffusely, mostly laterally -- unchanged. no acute ST segment deviation. Prior: Unchanged - Medical Decision Making Patient's care was delayed because of difficulty getting blood from her. IV was not able to be obtained, nurse gave her 1 nitro anyway, I asked her to stop and instead gave her some cutaneous morphine 2 mg, patient was feeling much better on reevaluation and her cardiac workup shows no acute injury. She has been having discomfort for weeks especially in the last couple days so my suspicion that she is having acute coronary syndrome now is extremely low. Could be related to rapid A. fib, which she did have for a portion of her visit, but she slowed down after getting pain medication to around 100 and was feeling much better. I think she can follow-up safely as an outpatient given her unchanged EKG, recent negative heart cath showing anything critical, and negative enzymes. She is comfortable with going home and following up. ED Disposition - Plan for ED Patient: Disposition: Home or Assisted Living Diagnosis: Chronic atrial fibrillation, Chest pain, unspecified Instructions: ED Chest Pain Atypical Unkn Cause Referrals: Bhupendra Oliveira MD [Primary Care Provider] - 3-5 Days
== END 2018-11-27 16:10 | disposition home or self-care (01) ==
PROVIDERS: Emergency Provider Emergency Medicine; Family Provider Family Medicine; PCP Family Medicine
DX: I48.0 Paroxysmal atrial fibrillation (principal); J44.9 Chronic obstructive pulmonary disease, unspecified; R06.89 Other abnormalities of breathing; I25.10 Atherosclerotic heart disease of native coronary artery without angina pectoris; E11.9 Type 2 diabetes mellitus without complications; I10 Essential (primary) hypertension; E78.5 Hyperlipidemia, unspecified; E03.9 Hypothyroidism, unspecified; G47.33 Obstructive sleep apnea (adult) (pediatric); K21.9 Gastro-esophageal reflux disease without esophagitis; E66.9 Obesity, unspecified; Z99.81 Dependence on supplemental oxygen; Z79.01 Long term (current) use of anticoagulants; Z79.82 Long term (current) use of aspirin; Z79.4 Long term (current) use of insulin; Z79.899 Other long term (current) drug therapy; Z87.891 Personal history of nicotine dependence; Z95.5 Presence of coronary angioplasty implant and graft
CPT/HCPCS: 36415; 71045; 80048; 84484; 85025; 93005; 96372; 99285

== ENCOUNTER 2018-12-01 01:48 | Emergency (ER) | payer MEDICARE, SELFPAY ==
[2018-11-27 12:07] VITALS: BMI 38.7
[2018-12-01 01:50] VITALS: BP 140/101; PULSE 97; RESP 18; TEMP 36.6; O2SAT 97; BMI 39.5
[2018-12-01 02:15] VITALS: PULSE 88; RESP 14; O2SAT 97
--- NOTE | 2018-12-01 02:21 | CT_ITS ---
STUDY: CT BRAIN WITHOUT CONTRAST REASON FOR EXAM: Female, 63 years old. Elevated blood pressure and headache today. RADIATION DOSAGE (If Supplied By Facility): CTDIvol = ( 44.99 ) mGy, DLP = ( 745.49 ) mGycm TECHNIQUE: Transaxial CT imaging of the brain was performed without administration of intravenous contrast material. Multiplanar reformations are submitted for interpretation. Individualized dose optimization techniques were used for this CT. COMPARISON: CT of the head dated September 09, 2018. FINDINGS: Normal soft tissue structures. Normal calvarium. There is mild cerebral atrophy with widening of the extra-axial spaces and ventricular dilatation. There are areas of decreased attenuation within the white matter tracts of the supratentorial brain, consistent with microvascular disease changes. Normal basal ganglia and thalami. Normal brainstem. Normal cerebellum. There is no intracranial hemorrhage. There is mild atherosclerotic calcification of the intracranial arteries. Patient has had extensive paranasal sinus surgery with what appears to be a nasal cavity stent. CT/Brain/Head without Contrast IMPRESSION: 1. Chronic involutional changes of the brain. 2. No CT evidence of acute intracranial hemorrhage. Electronically Signed: Jelly Davis MD at 3:40 EDT , Service support ,
--- NOTE | 2018-12-01 02:21 | EKG12_ITS ---
Test Reason : HYPERTENSION Blood Pressure : / mmHG Vent. Rate : 104 BPM Atrial Rate : 098 BPM P-R Int : 000 ms QRS Dur : 094 ms QT Int : 348 ms P-R-T Axes : 000 -14 177 degrees QTc Int : 457 ms Atrial fibrillation with rapid ventricular response with premature ventricular or aberrantly conducte d complexes ST & T wave abnormality, consider lateral ischemia Abnormal ECG Confirmed by ALETA ABRAHAM, ALVAREZ ([id number]), script editor MAUREEN YAÑEZ ([id number]) on 12/03/2018 11:09:43 AM Referred By: ANGELICA Confirmed By:ALVAREZ RIVER MD
--- NOTE | 2018-12-01 02:21 | RAD_ITS ---
STUDY: X-RAY CHEST REASON FOR EXAM: Female, 63 years old. Hypertension. Headache. TECHNIQUE: Single AP portable view of the chest. Patient is rotated to the right. COMPARISON: 09/09/2018. FINDINGS: The lungs are mildly underexpanded. There is no demonstrated pulmonary infiltrate. There is no demonstrated pleural abnormality. There is mild cardiac enlargement. Normal mediastinum and tracie. Normal visualized pulmonary arteries. Normal visualized aortic arch and descending thoracic aorta. There are degenerative changes of the visualized thoracic spine. There is mild inferior subluxation of the left humeral head, also present on previous study. There is no demonstrated abnormality of the visualized soft tissue structures of the upper abdomen. RAD/Chest 1 View (Portable) IMPRESSION: Mild cardiomegaly. No evidence for acute cardiopulmonary pathology. Electronically Signed: Darrel Mandel MD at 3:18 EDT , Service support ,
[2018-12-01 02:22] VITALS: BP 136/91
[2018-12-01] MEDS: Acetaminophen 325 MG Tablet 650 MG PO (02:39)
[2018-12-01 02:43] LABS: Absolute Neutrophil Count 5.9 X10^3/uL (2.0-7.7); Basophil# 0.02 X10^3/uL; Basophil% 0.2 % (0-1); Eosinophil# 0.35 X10^3/uL; Eosinophils% 4.3 % (0-5); Hematocrit 44.5 % (37-47); Hemoglobin 14.1 g/dl (12.0-15.0); Lymphocyte % 12.4 % (19-41); Mean Corp Hgb Conc 31.7 g/gl (32-36); Mean Corpuscular Hgb 29.3 pg (27.0-32.0); Mean Corpuscular Volume 92.5 fL (81-99); Mean Platelet Vol. 10.3 fl (6.2-12.0); Monocyte% 9.9 % (0-10); Platelet Count 181 K/mm3 (150-450); RBC Distribution Width CV 13.7 % (11.6-14.6); RBC Distribution Width SD 45.8 fl (35.1-43.9); Red Blood Count 4.81 M/mm3 (4.2-5.4); White Blood Count 8.1 K/mm3 (4.4-11.0)
[2018-12-01 02:45] LABS: POSITIVE COUNT NO; POSITIVE DIFFERENTIAL NO; POSITIVE MORPHOLOGY NO
[2018-12-01 02:52] LABS: International Normalized Ratio 1.1; Prothrombin Time (Protime)PT. 14.1 SECONDS (11.7-14.9)
[2018-12-01 03:29] LABS: Anion Gap 9 (5-15); BUN 12 mg/dL (7-18); BUN/Creat Ratio 18.5 RATIO (10-20); Calcium,Total 8.5 mg/dL (8.5-10.1); Chloride 106 mmol/L (98-107); Creatinine, Serum 0.65 mg/dL (0.55-1.02); EST Glomerular Filtration Rate 98 mL/min (>60); Est Glom Filt Rate - Afr Amer 118 mL/min (>60); Estimated Creatinine Clearance 70.07 ml/min; Glucose 97 mg/dL (74-106); Potassium 3.3 mmol/L (3.5-5.1); Sodium Level 145 mmol/L (136-145)
[2018-12-01 04:06] VITALS: BP 129/106; PULSE 83; RESP 16; O2SAT 98
--- NOTE | 2018-12-01 04:17 | ED.DCSUM_ITS ---
- ER Visit Summary Date of Service: 12/01/18 Chief Complaint: Headache, hypertension, palpitations History of Present Illness: The patient is a 63 F who presents with generalized headache all day today. She states earlier today she felt like her heart was racing. She checked her blood pressure at home several times and states both her systolic and diastolic values were over 100. History of A. fib and she is on Eliquis. Physical Examination: Blood pressure is 140/101, temperature 97.8, heart rate is 97, respiratory rate 18, pulse ox 97% on 3 L nasal cannula. Patient sitting up in bed no acute distress. She is alert and talkative. Head neck examination unremarkable. Heart is irregular. Lungs sounds clear. Abdomen soft nontender. Neuro exam reveals no focal deficits. Test Results: Portable chest x-ray shows mild cardiomegaly with no acute pathology. CT of the head shows chronic involutional changes. EKG is A. fib at 104. Nonspecific lateral ST changes are noted but this is unchanged when compared to prior studies. CBC is unremarkable. Chemistry studies were potassium 3.3. Coags are unremarkable. Emergency Department Course and Treatment: Patient was given Tylenol for headache. Blood pressure was initially reading 176/155 when I enter the room but her arm was bent as the blood pressure was reading. Repeat values are 136/91, 129/106, 133/102. On repeat examination patient is resting calmly. She denies headache. Blood pressures have remained stable. I encouraged her to check her blood pressure 2 or 3 times a day and keep a journal on time of day, reading, and how she is feeling at the time. She is to take this to her next doctor's appointment. Treatment Plan: [] Disposition: Discharge Impression: Cephalgia, resolved This note was generated with [employer] dictation software. It may contain incorrect words, spelling, and punctuation that were not noted in review of the chart prior to signing ED Disposition - Plan for ED Patient: Disposition: Home or Assisted Living Instructions: ED Cephalgia Unspecified, ED HTN Established Referrals: Bhupendra Oliveira MD [Primary Care Provider] - 1 Week
--- NOTE | 2018-12-01 04:17 | ED.DEP ---
ED Disposition - Plan for ED Patient: Disposition: Home or Assisted Living Instructions: ED HTN Established, ED Cephalgia Unspecified Referrals: Bhupendra Oliveira MD [Primary Care Provider] - 1 Week
[2018-12-01 04:41] VITALS: BP 133/102; PULSE 106; RESP 17; O2SAT 97
--- NOTE | 2018-12-01 04:42 | ED.RN ---
PATIENT DOES NOT HAVE HER O2 FOR DISCHARGE. SHE DOES NOT QUALIFY FOR AN AMBULANCE BUT WOULD QUALIFY FOR AN AMBULETTE. PATIENT DOES NOT WANT TO WAIT ON AN AMBULETTE AND WANTS TO GO BY A TAXI. SHE UNDERSTANDS THE RISKS OF GOING WITHOUT OXYGEN AND ACCEPTS THESE RISKS. HER TAXI WILL NOT ARRIVE FOR AT LEAST AN HOUR SO WE WILL HAVE HER WAIT IN HER ROOM ON OXYGEN UNTIL HER TAXI COMES. HER SON IS GOING TO MEET HER AT THEIR HOME AND HELP HER INTO THE HOUSE. DR. MERLOS IS AWARE OF THIS.
== END 2018-12-01 04:58 | disposition home or self-care (01) ==
PROVIDERS: Emergency Provider Emergency Medicine; Family Provider Family Medicine; PCP Family Medicine
DX: R51 Headache (principal); R00.2 Palpitations; I48.91 Unspecified atrial fibrillation; I11.0 Hypertensive heart disease with heart failure; I50.9 Heart failure, unspecified; J44.9 Chronic obstructive pulmonary disease, unspecified; G47.33 Obstructive sleep apnea (adult) (pediatric); K21.9 Gastro-esophageal reflux disease without esophagitis; I25.2 Old myocardial infarction; Z79.01 Long term (current) use of anticoagulants; Z79.82 Long term (current) use of aspirin; Z79.4 Long term (current) use of insulin; Z79.899 Other long term (current) drug therapy; Z99.81 Dependence on supplemental oxygen; Z87.891 Personal history of nicotine dependence
CPT/HCPCS: 70450; 71045; 80048; 85025; 85610; 85730; 93005; 99285; A4216

== ENCOUNTER → 2019-04-02 10:29 | Outpatient (CLI) | payer MEDICARE, SELFPAY ==
--- NOTE | 2019-04-02 10:31 | BI_ITS ---
MAMMOGRAPHY - BILATERAL SCREENING REASON FOR EXAM: Female, 64 years old. Routine annual screening examination. PERTINENT HISTORY: Aunts with breast cancer. Remote right excisional breast biopsy. TECHNIQUE: Digital bilateral breast yamileth (3D mammographic acquisition) in the CC and MLO projections. 2-D mediolateral oblique (MLO) and craniocaudad (CC) views of both breasts were obtained. CAD: Full Field Digital Mammography with Computer Added Detection was performed. COMPARISON: Comparison is made with prior study of December 11, 2017 and April 16, 2017. FINDINGS: Breast Composition: There are scattered areas of fibroglandular density. There are no dominant masses or suspicious calcifications. No other significant abnormalities are identified. There has been no significant change since the prior study. BI/SCREEN MAMM (CAD) W/YAMILETH BILAT IMPRESSION: Stable bilateral screening mammogram. Yearly follow-up mammogram recommended. (A) ASSESSMENT CATEGORY: BIRADS Category 1: Negative. A letter regarding these results will be sent to the patient by the facility within 30 days. Approximately 10% of breast cancers are not detected by mammography. A normal mammogram should not delay biopsy of a clinically suspicious abnormality. [id number] Electronically Signed: Bentley Montejo, at 15:10 EDT , Service support ,
== END ==
PROVIDERS: Family Provider Family Medicine; PCP Family Medicine; Referring Provider Family Medicine
DX: Z12.31 Encounter for screening mammogram for malignant neoplasm of breast (principal)
CPT/HCPCS: 77063; 77067

== ENCOUNTER 2019-08-30 05:57 | Inpatient (IN) | payer MEDICARE, SELFPAY ==
[2019-08-11 10:11] VITALS: BMI 36.9
[2019-08-30] VITALS (12 sets, daily range): BP systolic 96–158; BP diastolic 56–112; PULSE 76–120; RESP 18–28; TEMP 36.1–36.9; O2SAT 96–100; BMI 36.6; BMI 36.9
--- NOTE | 2019-08-30 06:24 | EKG12_ITS ---
Test Reason : ABD PAIN Blood Pressure : / mmHG Vent. Rate : 114 BPM Atrial Rate : 061 BPM P-R Int : 000 ms QRS Dur : 088 ms QT Int : 342 ms P-R-T Axes : 000 -13 189 degrees QTc Int : 471 ms Atrial fibrillation with rapid ventricular response with premature ventricular or aberrantly conducte d complexes ST & T wave abnormality, consider lateral ischemia Abnormal ECG Confirmed by ALETA ABRAHAM, ALVAREZ ([id number]), head of design SHYANNE TERRAZAS ([id number]) on 09/01/2019 11:42:22 AM Referred By: HANNAH Confirmed By:ALVAREZ RIVER MD
--- NOTE | 2019-08-30 06:24 | CT_ITS ---
STUDY: CT ABDOMEN AND PELVIS WITH CONTRAST REASON FOR EXAM: Female, 64 years old. Left lower quadrant pain with nausea, vomiting and diarrhea. Elevated white cell count. RADIATION DOSAGE (If Supplied By Facility): CTDIvol = ( 18.58 ) mGy, DLP = ( 1291.06 ) mGycm TECHNIQUE: Transaxial images were obtained from the dome of the diaphragm to the symphysis pubis without oral contrast. 100mL Isovue-370 was administered. Sagittal and coronal images were reconstructed. Individualized dose optimization techniques were used for this CT. COMPARISON: Comparison is made with prior examination dated March 12, 2014. FINDINGS: Increased linear markings at the lung bases with areas of confluence suggestive of bibasilar atelectasis and/or scarring. The visualized portions of the heart are within normal limits. Normal liver. The patient is status post cholecystectomy. Stable mild degree of central intrahepatic biliary ductal dilatation most likely secondary to the postcholecystectomy state. The common bile duct is dilated with a transverse diameter of 1.1 cm. There are multiple benign calcified granulomata of the spleen. Normal pancreas. Normal bilateral adrenal glands. Normal right kidney. Stable small left renal cysts. Normal visualized stomach. Normal small intestine. Normal colon. The appendix is visualized and appears normal. There is diffuse atherosclerotic calcification of the abdominal aorta, without a demonstrated aneurysm. Normal inferior vena cava. There is borderline retroperitoneal lymphadenopathy with enlarged nodes no greater than 10mm in the short axis diameter. Normal urinary bladder. There is absence of the uterus consistent with a prior hysterectomy. The appearance of prior anterior ventral hernia repair using a mesh. Small right paraumbilical hernia containing fat. This is unchanged. Normal osseous structures. CT/Abdomen/Pelvis WITH Contrast IMPRESSION: Status post cholecystectomy with the intrahepatic and extra hepatic biliary ductal dilatation. Mild degree of scarring and/or atelectasis at the lung bases. Stable left renal cysts. Small right para umbilical hernia containing fat. Electronically Signed: Bentley Montejo, at 9:59 EST , Service support ,
--- NOTE | 2019-08-30 06:27 | ED.DCSUM_ITS ---
- ER Visit Summary Date of Service: 08/30/19 Chief Complaint: Abdominal pain History of Present Illness: The patient is a 64 F presenting with abdominal pain, nausea, vomiting, diarrhea. She states this started last night. She had multiple episodes of both vomiting and diarrhea. She denies blood in her stool or emesis. No recent antibiotics. She denies sick contacts. Denies bad food exposure. Denies recent travel. She did receive a flu shot this year. She denies fever, complains of chills. She has had rhinorrhea and cough. She has chronic chest pain and shortness of breath which she states is no worse than usual. She denies urinary complaints. She has had a mild headache that is not the worst headache of her life. Denies other complaints. Physical Examination: Vitals are stable. Patient is afebrile. Alert no acute distress. HEENT exam dry mucous membranes Neck is supple. Lungs are clear and equal bilaterally. Heart is irregularly irregular Abdomen is soft obese, diffuse tenderness, no rebound or guarding Extremities are unremarkable. Skin is warm and dry. No focal neurologic deficit. Remainder of exam is unremarkable. Emergency Department Course and Treatment: She was given morphine, Phenergan, IV fluids. EKG A. fib RVR rate of 114, unchanged from previous. Chest xray shows there are NO infiltrates, effusions or pneumothoraces. CBC shows white count 19.3. Basic metabolic panel shows BUN 24, creatinine 1.27, previous creatinine 0.62. Liver lipase are normal. Troponin is negative. Lactic acid 3.3. Blood cultures were sent. Stool studies were ordered. CT abdomen pelvis was ordered and will be checked out to the oncoming physician. Disposition: Pending Impression: Abdominal pain, vomiting, diarrhea This note was generated with [email or web address] dictation software. It may contain incorrect words, spelling, and punctuation that were not noted in review of the chart prior to signing ED Disposition - Plan for ED Patient: Referrals: Bhupendra Oliveira MD [Primary Care Provider] -
--- NOTE | 2019-08-30 06:50 | RAD_ITS ---
STUDY: X-RAY CHEST REASON FOR EXAM: Female, 64 years old. Chest pain TECHNIQUE: Frontal view COMPARISON: None. FINDINGS: The lungs are clear and expanded. There is no demonstrated pleural abnormality. Normal size heart. Normal mediastinum and tracie. Normal visualized pulmonary arteries. Normal visualized aortic arch and descending thoracic aorta. There is kyphosis of the thoracic spine. Normal visualized ribs, clavicles, and shoulders. There is no demonstrated abnormality of the visualized soft tissue structures of the upper abdomen. RAD/Chest 1 View (Portable) IMPRESSION: There are NO infiltrates, effusions or pneumothoraces. Electronically Signed: Crow Hall MD at 7:18 EST , Service support ,
[2019-08-30] MEDS: proMETHazine 25 MG/ML Syringe 6.25 MG IV (07:10)
[2019-08-30] MEDS: Morphine 4 MG/ML Syringe IV (07:12)
[2019-08-30 07:13] LABS: Absolute Lymphocyte Count 0.51 X10^3/uL (0.83-4.51); Absolute Neutrophil Count 16.5 X10^3/uL (2.0-7.7); Basophil# 0.06 X10^3/uL; Basophil% 0.3 % (0-1); Eosinophil# 0.35 X10^3/uL; Eosinophils% 1.8 % (0-5); Hematocrit 45.7 % (37-47); Hemoglobin 14.5 g/dL (12.0-15.0); Lymphocyte # 0.51 X10^3/ul (4.0); Lymphocyte % 2.6 % (19-41); Mean Corp Hgb Conc 31.7 g/dL (32-36); Mean Corpuscular Hgb 30.5 pg (27.0-32.0); Mean Corpuscular Volume 96.2 fL (81-99); Mean Platelet Vol. 10.1 fl (6.2-12.0); Monocyte# 1.73 X10^3/uL; NRBC Flagged by Analyzer 0 % (0-5); Neutrophil # 16.53 X10^3/uL (2.7-7.7); Neutrophil % 85.8 % (47-70); POSITIVE DIFFERENTIAL YES; Platelet Count 244 K/mm3 (150-450); RBC Distribution Width CV 14.2 % (11.6-14.6); RBC Distribution Width SD 48.7 fl (35.1-43.9); Red Blood Count 4.75 M/mm3 (4.2-5.4); White Blood Count 19.3 K/mm3 (4.4-11.0)
[2019-08-30 07:16] LABS: Differential Indicated SCAN CRITERIA MET
[2019-08-30 07:31] LABS: ALB/GLOB Ratio 0.8 RATIO (0.9-2.4); AST(SGOT) 15 U/L (15-37); Alanine Aminotransfer ALT/SGPT 21 U/L (13-56); Alkaline Phosphatase 62 U/L (45-117); Anion Gap 7 (5-15); BUN 24 mg/dL (7-18); BUN/Creat Ratio 18.9 RATIO (10-20); Chloride 103 mmol/L (98-107); Creatinine, Serum 1.27 mg/dL (0.55-1.02); EST Glomerular Filtration Rate 45 mL/min (>60); Est Glom Filt Rate - Afr Amer 54 mL/min (>60); Estimated Creatinine Clearance 35.39 ml/min; Globulin 4.9 g/dL (2.2-4.2); Glucose 85 mg/dL (74-106); Lipase 114 U/L (73-393); Potassium 4.1 mmol/L (3.5-5.1); Protein, Total 8.9 g/dL (6.4-8.2); Sodium Level 141 mmol/L (136-145)
[2019-08-30 07:39] LABS: Bacteria 0 SEEN /hpf (None Seen); Mucous, Urine 0 SEEN /hpf (<or=2+); Red Blood Cells-Urine 0 SEEN /hpf (0-5); Squamous Epithelial Cells - UA 0 SEEN /hpf (5-10)
[2019-08-30 07:42] LABS: Lactic Acid 3.3 mmol/L (0.4-1.9)
[2019-08-30 07:45] LABS: Platelet Estimate ADEQUATE (ADEQ); Red Cell Morphology NORM C+C NORMAL (NORM C&C)
[2019-08-30 07:52] LABS: Color, Urine Yellow (Yellow); Glucose, Dipstick Normal (Normal); Ketone-Dipstick 5 mg/dl (Negative); Leukocyte Esterase-Dipstick 25 /ul (Negative); Nitrite-Dipstick Negative (Negative); Occult Blood-Urine Negative /ul (Negative); Protein-Dipstick 15 mg/dl (Negative); Urine Bilirubin Dipstick Negative (Negative); Urine Clarity Clear (Clear); Urine Urobilinogen Normal (Normal)
[2019-08-30 08:14] LABS: Hyaline Cast 10-25 SEEN /lpf (0-5); White Blood Cells 0-5 SEEN /hpf (0-5)
[2019-08-30] MEDS: 0.9% Normal Saline 1,000 ML 999 ML IV ×3 (08:49→11:53)
[2019-08-30] MEDS: metroNIDAZOLE 500 MG/100 ML BAG 100 MG IV (10:02)
[2019-08-30 11:10] LABS: Reflex Lactate? Y
[2019-08-30 11:21] LABS: Bedside Glucose 111 mg/dL (70-110)
[2019-08-30 12:07] LABS: Lactic Acid 2.4 mmol/L (0.4-1.9)
--- NOTE | 2019-08-30 12:15 | NURSING ---
MD updated on lactic 2.4 and pt lethargy. No new orders given.
[2019-08-30] MEDS: 0.9% Normal Saline 1,000 ML 125 ML IV (12:30)
[2019-08-30] MEDS: CLARIFY ORDER 1 EACH NOTE (15:05)
[2019-08-30 15:31] LABS: Bedside Glucose 87 mg/dL (70-110)
--- NOTE | 2019-08-30 15:57 | PCM.HP.STD ---
Problem List (1) Gastroenteritis Status: Acute (2) Lactic acidosis Status: Acute (3) Presence of stent in coronary artery Status: Chronic Comment: PCI/Stent to the prox 1st Diag branch 12/07/2003 (4) Mixed hyperlipidemia Status: Chronic (5) Atherosclerotic heart disease of [place] coronary artery without angina pectoris Status: Chronic Qualifiers: (6) Essential hypertension Status: Chronic (7) Paroxysmal A-fib Status: Chronic (8) Diabetes mellitus type 2 in obese Status: Chronic (9) Hypothyroidism Status: Chronic Qualifiers: (10) GERD (gastroesophageal reflux disease) Status: Chronic Qualifiers: (11) COPD (chronic obstructive pulmonary disease) Status: Chronic Qualifiers: (12) Chronic respiratory insufficiency Status: Chronic Comment: On home oxygen at night (13) PARESH (obstructive sleep apnea) Status: Chronic Comment: non-complaint with CPAP History of Present Illness Date of Admission: 08/30/19 Chief Complaint: N/V/D The patient is a 64 year old F who since yesterday has been having intractable vomiting, diarrhea and abdominal pain. Began acutely right before bedtime and abdominal pain was feeling very distended and bloated. Patient went to have a bowel movement unable to initially but then was able to have diarrhea and was quite voluminous per her description. Was having vomiting as well and just feeling very sick. Presented to the emergency room for evaluation. Had lab work-up that was seen for a white count of 19.3 as well as a lactic acid of 3.3. In the emergency room, patient received Pipracil and/tazobactam, metronidazole IV fluids and morphine sulfate. Patient is never felt sick like this previously though she does endorse that she has a history of gastroparesis. Patient is currently feeling better at this time. [] Past Medical History Past Medical History (Chronic Problems): Chronic Problems (Last Reviewed 08/11/19 @ 10:22 by Uma Montgomery) Presence of stent in coronary artery (Chronic ~12/07/03) PCI/Stent to the prox 1st Diag branch 12/07/2003 Mixed hyperlipidemia (Chronic) Atherosclerotic heart disease of [place] coronary artery without angina pectoris (Chronic) Essential hypertension (Chronic) Paroxysmal A-fib (Chronic) Diabetes mellitus type 2 in obese (Chronic) Hypothyroidism (Chronic) GERD (gastroesophageal reflux disease) (Chronic) COPD (chronic obstructive pulmonary disease) (Chronic) Chronic respiratory insufficiency (Chronic) On home oxygen at night PARESH (obstructive sleep apnea) (Chronic) non-complaint with CPAP Medical History: Medical History (Last Updated 08/30/19 @ 16:01 by Zuhair Cohn DO) Presence of stent in coronary artery (Chronic) Onset Date: ~12/07/03 Z95.5 PCI/Stent to the prox 1st Diag branch 12/07/2003 Mixed hyperlipidemia (Chronic) E78.2 Atherosclerotic heart disease of [place] coronary artery without angina pectoris (Chronic) I25.10 Essential hypertension (Chronic) I10 Paroxysmal A-fib (Chronic) I48.0 Diabetes mellitus type 2 in obese (Chronic) E11.9, E66.9 Hypothyroidism (Chronic) E03.9 GERD (gastroesophageal reflux disease) (Chronic) K21.9 COPD (chronic obstructive pulmonary disease) (Chronic) J44.9 Chronic respiratory insufficiency (Chronic) R06.89 On home oxygen at night PARESH (obstructive sleep apnea) (Chronic) G47.33 non-complaint with CPAP Gastroparesis K31.84 DDD (degenerative disc disease) History of DVT (deep vein thrombosis) Z86.718 Pulmonary embolism I26.99 History of cervical cancer Z85.41 Lung nodule R91.1 RLS (restless legs syndrome) G25.81 Allergies ciprofloxacin [From Cipro] Allergy (Verified 08/11/19 10:11) Hives latex Allergy (Verified 08/11/19 10:11) matos me niacin [From Niaspan Extended-Release] Allergy (Verified 08/11/19 10:11) Hives ondansetron [From Zofran] Allergy (Verified 08/11/19 10:11) Unknown Xanthines Allergy (Verified 08/11/19 10:11) Unknown orphenadrine citrate [From Norgesic] Adverse Reaction (Verified 08/11/19 10:11) groggy medical tape Adverse Reaction (Uncoded 08/11/19 10:11) blisters Home Medications: Ambulatory Orders Medication Instructions Recorded Atorvastatin Calcium [Lipitor] 40 mg PO DAILY 02/03/18 Duloxetine Hcl [Cymbalta] 60 mg PO DAILY 02/03/18 Insulin Lispro [Humalog KwikPen] 20 unit SQ LUNCH 02/03/18 Insulin Lispro [Humalog KwikPen] 24 unit SQ DINNER 02/03/18 Insulin Lispro [Humalog] 14 unit SQ BREAKFAST 02/03/18 Isosorbide Mononitrate [Imdur] 90 mg PO DAILY 02/03/18 Levothyroxine [Synthroid] 100 mcg PO DAILY 02/03/18 Apixaban [Eliquis] 2.5 mg PO BID 05/17/18 Ascorbic Acid [Vitamin C] 500 mg PO DAILY@0800 05/17/18 Omeprazole [Prilosec] 20 mg PO DAILY 05/17/18 Albuterol IH (ProAir) [Proair Hfa] 2 puff INHALATION Q4H PRN PRN 08/05/18 Aspirin E.C. [Ecotrin] 81 mg PO DAILY@0800 09/02/18 Sennosides [Senna] 8.6 mg PO BID 09/02/18 Trueplus Glucose Chew 4 tab PO PRN PRN 09/02/18 docusate sodium 100 mg capsule 100 mg PO DAILY cap 06/08/19 ergocalciferol (vitamin D2) 50,000 50,000 unit PO QWEEK 06/08/19 unit capsule fluticasone propionate 50 2 spray INTRANASAL DAILY 06/08/19 mcg/actuation nasal spray,suspension furosemide 40 mg tablet 20 mg PO BID 06/08/19 lisinopril 10 mg tablet 5 mg PO DAILY 06/08/19 metoprolol tartrate 100 mg tablet 100 mg PO BID 06/08/19 nitroglycerin 0.4 mg sublingual 0.4 mg SUBLINGUAL Q5-15M PRN 06/08/19 tablet potassium chloride ER 10 mEq 10 meq PO DAILY 06/08/19 tablet,extended release promethazine 25 mg tablet 25 mg PO Q8H PRN tab 06/08/19 triamcinolone acetonide 0.1 % 1 applic TOPICAL BID PRN 06/08/19 topical cream allopurinol 100 mg tablet 100 mg PO DAILY 08/11/19 buspirone 10 mg tablet 10 mg PO BID 08/11/19 diltiazem CD 120 mg 120 mg PO DAILY #30 cap 08/11/19 capsule,extended release 24 hr insulin glargine (U-100) 100 44 unit SC BID ml 08/11/19 unit/mL (3 mL) subcutaneous pen Cholecalciferol (VIT D3) [Vitamin 1,000 unit PO DAILY 08/30/19 D] Cyclosporine [Restasis] 1 ea OP BID 08/30/19 DiphenhydrAMINE [Benadryl] 25 mg PO BID PRN PRN 08/30/19 Ferrous Gluconate 1 tab PO DAILY 08/30/19 Fluorometholone [Fml] 1 drp OP Q4H PRN 08/30/19 Guaifenesin/Pseudoephedrne HCl 1 ea PO BID 08/30/19 [Mucinex D ER 1,200-120 mg Tab] Ibuprofen [Motrin Ib] 200 mg PO Q6H PRN PRN 08/30/19 Metoprolol Tartrate 0.5 tab PO BID 08/30/19 metFORMIN (XR) [Glucophage Xr] 1,000 mg PO DAILY 08/30/19 Surgical History: Surgical History (Last Reviewed 08/30/19 @ 16:01 by Zuhair Cohn DO) Presence of coronary angioplasty implant and graft Onset Date: ~12/07/03 Z95.5 PCI/Stent to the prox 1st Diag branch 12/07/2003 History of cholecystectomy Z90.49 History of hernia repair Z98.890, Z87.19 History of knee surgery Z98.890 History of left heart catheterization (LHC) Onset Date: ~12/23/17 Z98.890 Single vessel CAD of the LCX, occluded very small LCX with Rt/Lt collaterals per cath; Mid LAD 40% stenosis, distal LAD 50% stenosis per cath 12/23/17 History of nasal surgery Z98.890 History of surgery on wrist Z98.890 History of total abdominal hysterectomy Z90.710 History of tubal ligation Z98.51 Surgical History: angioplasty, cholecystectomy, herniorrhaphy, hysterectomy, - - tubal ligation. Psychiatric History: No pertinent psych hx [employer] History: No pertinent [employer] history Smoking Status: Former smoker - *Family History Sibling Family History: Family History (Last Reviewed 08/30/19 @ 16:01 by Zuhair Cohn DO) Mother CAD (coronary artery disease) Father CAD (coronary artery disease) Brother CAD (coronary artery disease) Sister Hypertension Sister Diabetes Sister Heart disease History Items: COPD - in sister. Maternal Family History: Family History (Last Reviewed 08/30/19 @ 16:01 by Zuhair Cohn DO) Mother CAD (coronary artery disease) Father CAD (coronary artery disease) Brother CAD (coronary artery disease) Sister Hypertension Sister Diabetes Sister Heart disease History Items: No pertinent history Paternal Family History: Family History (Last Reviewed 08/30/19 @ 16:01 by Zuhair Cohn DO) Mother CAD (coronary artery disease) Father CAD (coronary artery disease) Brother CAD (coronary artery disease) Sister Hypertension Sister Diabetes Sister Heart disease History Items: Heart Disease, Stroke - age 62 Offspring Family History: Family History (Last Reviewed 08/30/19 @ 16:01 by Zuhair Cohn DO) Mother CAD (coronary artery disease) Father CAD (coronary artery disease) Brother CAD (coronary artery disease) Sister Hypertension Sister Diabetes Sister Heart disease History Items: No pertinent history - 5 children, 32 grand children and great grandchildren Review of Systems Constitutional: Reports: Malaise. Denies: Anorexia, Chills, Fever Eyes: Denies: Blurred vision, Double vision HEENT: Denies: Head Aches, Sinus Congestion, Sinus Drainage Cardiovascular: Denies: Chest Pain, Palpitations Respiratory: Reports: Cough. Denies: Shortness of breath upon exertion, Sputum production Gastrointestinal: Reports: Abdominal Pain, Diarrhea, Nausea, Vomiting. Denies: Hematemesis, Hematochezia Genitourinary: Denies: Dysuria, Frequency Musculoskeletal: Denies: Joint Pain, Joint Tenderness Skin: Denies: Rash, Wounds Neurological: Denies: Numbness, Tingling, Focal weakness Psychiatric: Denies: Anxiety, Depression Hematologic/ Lymphatic: Denies: Easy Bruising, Easy Bleeding, Hx of blood clot Comment: Review of systems otherwise negative except for as mentioned above and in HPI. VTE Information - Inpt Only VTE Present on Admission: No VTE Mechan Device Prophylaxis: None VTE Pharm Prophylaxis ordered?: No Reason prophylaxis not ordered:: Procedure Not Indicated Patient Problems: Active and Suspected Problems (Last Reviewed 08/11/19 @ 10:22 by Uma Montgomery) Gastroenteritis (Acute) Lactic acidosis (Acute) - Physical Exam Vitals/I&O's: Vital Signs Temp Pulse Resp BP Pulse Ox 36.6 C 95 20 H 133/71 H 100 08/30/19 14:46 08/30/19 14:46 08/30/19 14:46 08/30/19 14:46 08/30/19 14:46 Oxygen Flow Rate (L/min) 2 Oxygen Delivery Method Nasal Cannula Weight: 91.7 kg Body Mass Index (BMI) 36.9 Finger Stick Blood Glucose 263 Intake and Output for Last 24 Hours 08/28/19 08/29/19 08/30/19 23:59 23:59 23:59 Intake Total 3182.8 / 3182.8 Balance 3182.8 / 3182.8 General: Alert, Cooperative, No apparent distress HEENT: Atraumatic, Normocephalic Oral: Moist Mucosa, No Gingival or Mucosal Lesions/ Ulcerations Neck: No Nodes, Trachea Midline Lungs: Clear to auscultation, Normal air movement, No rhonchi, No wheeze, No rales Cardiovascular: Regular rate, Regular Rhythm, Normal S1, Normal S2, No murmurs Abdomen: Bowel Sounds Present, Soft, Non Tender, Non-Distended Extremities: No edema, No Calf Tenderness Skin: No rashes, No breakdown Musculoskeletal: No Tenderness to Palpation of Joints or Extremities, No Muscle Wasting Neurological: Deep Tendon Reflexes 2+/4 and Symmetrical, - - no clonus Psych/Mental Status: Normal Affect, Appropriate Microbiology Past 72 Hours 08/30/19 07:31 Mucosa - Nasopharyngeal Influenza Types A,B Direct FA (JEZ) - Final Laboratory Results 08/30/19 07:05: WBC 19.3 H, RBC 4.75, Hgb 14.5, Hct 45.7, MCV 96.2, MCH 30.5, MCHC 31.7 L, RDW Std Deviation 48.7 H, RDW Coeff of Aubrey 14.2, Plt Count 244, MPV 10.1, Immature Gran % (Auto) 0.500, Neut % (Auto) 85.8 H, Lymph % (Auto) 2.6 L, Bibb % (Auto) 9.0, Eos % (Auto) 1.8, Baso % (Auto) 0.3, Absolute Neuts (auto) 16.5 H, Absolute Lymphs (auto) 0.51 L, Nucleated RBC % 0, Differential Comment , Diff Path Review January, Platelet Estimate ADEQUATE, RBC Morphology NORM C+C 08/30/19 07:05: Sodium 141, Potassium 4.1, Chloride 103, Carbon Dioxide 31.0, Anion Gap 7, BUN 24 H, Creatinine 1.27 H, Estim Creat Clear Calc 35.39, Est GFR (MDRD) Af Amer 54 L, Est GFR (MDRD) Non-Af 45 L, BUN/Creatinine Ratio 18.9, Glucose 85, Calcium 10.0, Total Bilirubin 0.70, AST 15, ALT 21, Alkaline Phosphatase 62, Troponin I < 0.015, Total Protein 8.9 H, Albumin 4.0, Globulin 4.9 H, Albumin/Globulin Ratio 0.8 L, Lipase 114 08/30/19 07:05: Lactic Acid 3.3 H* 08/30/19 07:30: Urine Color Yellow, Urine Clarity Clear, Urine pH 5.0, Ur Specific [place] 1.010, Urine Protein 15 H, Urine Glucose (UA) Normal, Urine Ketones 5 H, Urine Occult Blood Negative, Urine Nitrite Negative, Urine Bilirubin Negative, Urine Urobilinogen Normal, Ur Leukocyte Esterase 25 H, Urine RBC 0 SEEN, Urine WBC 0-5 SEEN, Ur Squamous Epith Cells 0 SEEN, Urine Bacteria 0 SEEN, Hyaline Casts 10-25 SEEN, Urine Mucus 0 SEEN 08/30/19 11:15: POC Glucose 111 H 08/30/19 11:25: Lactic Acid 2.4 H* 08/30/19 15:24: POC Glucose 87 Clinical Impression(s) from Imaging Studies Abdomen/Pelvis CT 08/30/19 06:24 IMPRESSION: Status post cholecystectomy with the intrahepatic and extra hepatic biliary ductal dilatation. Mild degree of scarring and/or atelectasis at the lung bases. Stable left renal cysts. Small right para umbilical hernia containing fat. Electronically Signed: Bentley Montejo at 9:59 EST , Service support , Chest X-Ray 08/30/19 06:50 IMPRESSION: There are NO infiltrates, effusions or pneumothoraces. Electronically Signed: Crow Hall MD at 7:18 EST , Service support , Current Medications Acetaminophen (Tylenol) 650 mg PO Q6H PRN PRN PRN Reason: Pain Score 1-3/Temp > 100.7 F Acetaminophen (Tylenol) 650 mg RECTAL Q4H PRN PRN PRN Reason: Pain Score 1-3/Temp > 100.7 F Albuterol Sulfate (Ventolin Aerosols) 2.5 mg INHALATION Q4H PRN PRN Reason: SOB &/OR WHEEZING Allopurinol (Zyloprim) 100 mg PO DAILY [facility] Apixaban (Eliquis) 2.5 mg PO BID [facility] Ascorbic Acid (Vitamin C) 500 mg PO DAILY@0800 [facility] Aspirin (Ecotrin) 81 mg PO DAILY@0800 [facility] Buspirone HCl (Buspar) 10 mg PO BID [facility] Dextrose (D50w Syringe) 0 gm IV X1 PRN; Protocol PRN Reason: Hypoglycemia Diltiazem HCl (Cardizem Cd) 120 mg PO DAILY [facility] Docusate Sodium (Colace) 100 mg PO DAILY [facility] Duloxetine HCl (Cymbalta) 60 mg PO DAILY [facility] Ergocalciferol (Vitamin D) 50,000 unit PO Rsos [facility] Fluticasone Propionate (Flonase Nasal [place]) 2 spray NASAL DAILY [facility] Glucagon () 1 mg IM .X1 PRN PRN Reason: Hypoglycemia Sodium Chloride () 1,000 mls @ 125 mls/hr IV .Q8H [facility] Stop: 08/30/19 20:32 Last Admin: 08/30/19 12:30 Dose: 125 mls/hr Documented by: Insulin Glargine (Lantus (Bkc)) 44 units SC BID [facility] Insulin Human Lispro (Humalog Kwikpen (Bkc)) 0 unit SC TIDAC [facility]; Protocol Last Admin: 08/30/19 13:48 Dose: Not Given Documented by: Isosorbide Mononitrate (Imdur) 90 mg PO DAILY [facility] Levothyroxine Sodium (Synthroid) 100 mcg PO DAILY@0600 [facility] Lisinopril (Zestril) 10 mg PO DAILY [facility] Metoprolol Tartrate (Lopressor (Beta [place])) 100 mg PO BID [facility] Metoprolol Tartrate (Lopressor (Beta Kaye)) 12.5 mg PO BID [facility] Nitroglycerin (Nitrostat) 0.4 mg SUBLINGUAL .Q5-15M PRN PRN Reason: chest pain Ondansetron HCl (Zofran) 4 mg IV Q8H PRN PRN PRN Reason: NAUSEA/VOMITING Pantoprazole Sodium (Protonix) 20 mg PO DAILY [facility] Potassium Chloride (K-Dur) 10 meq PO DAILY [facility] Promethazine HCl (Phenergan Tablet) 25 mg PO Q8H PRN PRN Reason: nausea and vomiting Senna (Senokot) 1 tablet PO BID SHADY Sodium Chloride () 10 - 40 ml IV UD PRN PRN Reason: SALINE FLUSH Assessment/Plan All Active Problems (Last Reviewed 08/11/19 @ 10:22 by Uma Montgomery) Gastroenteritis (Acute) Lactic acidosis (Acute) Abnormal nuclear stress test (Resolved) Bradycardia (Resolved) Hypokalemia (Resolved) Metabolic alkalosis (Resolved) Pneumonia (Resolved) Septic shock (Resolved) Toxic encephalopathy (Resolved) 1. acute gastroenteritis improving since arrival supportive mgmt suspected viral 2. SIRS POA 2/2 above supportive mgmt received pip/tazo and metronidazole in ED--will not continue with abx now. 3. Lactic acidosis 2/2 N/V and metformin hold metformin no additional work up at this time, unless condition deteriorates. 4.DM2 continue basal for now hold prandial SSI 5. h/o VTE: on apixaban 6. VTE proph: low risk as already on OAC 7. ACP: DW patient. she wishes to be full code at this time. Code Visit Inpatient E&M: 88904 Init Hosp L3
[2019-08-30] MEDS: Metoprolol Tartrate 100 MG Tablet PO (21:57)
[2019-08-30] MEDS: Metoprolol Tartrate 25 MG Tablet 12.5 MG PO (21:57)
[2019-08-30] MEDS: APIXABAN 2.5 MG TABLET PO (21:58)
[2019-08-30] MEDS: busPIRone 5 MG Tablet 10 MG PO (21:58)
[2019-08-30] MEDS: Senna Tablet 1 TABLET PO (21:58)
[2019-08-30 22:56] LABS: Bedside Glucose 84 mg/dL (70-110)
[2019-08-31 02:40] VITALS: BP 123/66; PULSE 68; RESP 18; TEMP 37.2; O2SAT 100
[2019-08-31] MEDS: Levothyroxine 100 MCG Tablet PO (06:22)
[2019-08-31 06:40] LABS: Bedside Glucose 33 mg/dL (70-110)
[2019-08-31 06:59] LABS: ALB/GLOB Ratio 0.7 RATIO (0.9-2.4); AST(SGOT) 34 U/L (15-37); Alanine Aminotransfer ALT/SGPT 15 U/L (13-56); Albumin, Serum 2.4 g/dL (3.2-5.0); Alkaline Phosphatase 61 U/L (45-117); Anion Gap 5 (5-15); BUN 14 mg/dL (7-18); BUN/Creat Ratio 15.8 RATIO (10-20); Calcium,Total 8.1 mg/dL (8.5-10.1); Chloride 114 mmol/L (98-107); Creatinine, Serum 0.89 mg/dL (0.55-1.02); EST Glomerular Filtration Rate 68 mL/min (>60); Est Glom Filt Rate - Afr Amer 82 mL/min (>60); Estimated Creatinine Clearance 50.51 ml/min; Globulin 3.4 g/dL (2.2-4.2); Glucose 63 mg/dL (74-106); Potassium 4.3 mmol/L (3.5-5.1); Protein, Total 5.8 g/dL (6.4-8.2); Sodium Level 141 mmol/L (136-145)
[2019-08-31 07:20] LABS: Bedside Glucose 69 mg/dL (70-110)
[2019-08-31 07:26] LABS: Absolute Lymphocyte Count 0.72 X10^3/uL (0.83-4.51); Absolute Neutrophil Count 4.8 X10^3/uL (2.0-7.7); Basophil# 0.04 X10^3/uL; Basophil% 0.6 % (0-1); Eosinophil# 0.26 X10^3/uL; Eosinophils% 3.9 % (0-5); Hematocrit 30.4 % (37-47); Lymphocyte # 0.72 X10^3/ul (4.0); Lymphocyte % 10.8 % (19-41); Mean Corpuscular Volume 96.5 fL (81-99); Mean Platelet Vol. 9.9 fl (6.2-12.0); NRBC Flagged by Analyzer 0 % (0-5); Neutrophil # 4.82 X10^3/uL (2.7-7.7); Neutrophil % 72.3 % (47-70); POSITIVE COUNT YES; Platelet Count 188 K/mm3 (150-450); RBC Distribution Width SD 54.5 fl (35.1-43.9); Red Blood Count 3.15 M/mm3 (4.2-5.4); White Blood Count 6.7 K/mm3 (4.4-11.0)
[2019-08-31 07:40] LABS: Hemoglobin 12.4 g/dL (12.0-15.0)
[2019-08-31 07:41] LABS: Bedside Glucose 94 mg/dL (70-110)
[2019-08-31 07:41] LABS: Mean Corp Hgb Conc 40.8 g/dL (32-36); Mean Corpuscular Hgb 39.4 pg (27.0-32.0)
[2019-08-31 07:55] LABS: Pathologist Review Reviewed
[2019-08-31 10:02] VITALS: BP 124/76; PULSE 76; RESP 20; TEMP 36.9; O2SAT 100
[2019-08-31] MEDS: Senna Tablet 1 TABLET PO (10:06)
[2019-08-31] MEDS: Fluticasone 0.05% 1 SPRAY NASAL.SRY 2 SPRAY NASAL (10:06)
[2019-08-31] MEDS: Pantoprazole Sodium 20 MG Tablet PO (10:07)
[2019-08-31] MEDS: Lisinopril 10 MG Tablet PO (10:07)
[2019-08-31] MEDS: Allopurinol 100 MG Tablet PO (10:07)
[2019-08-31] MEDS: Ferrous Gluconate 324 MG Tablet PO (10:07)
[2019-08-31 10:08] VITALS: PULSE 76
[2019-08-31] MEDS: Ascorbic Acid 500 MG Tablet PO (10:08)
[2019-08-31] MEDS: Isosorbide Mononitrate 60 MG Tablet 90 MG PO (10:08)
[2019-08-31] MEDS: dilTIAZem CD 120 MG Capsule PO (10:08)
[2019-08-31] MEDS: Aspirin E.C. 81 MG Tablet PO (10:08)
[2019-08-31] MEDS: Metoprolol Tartrate 100 MG Tablet PO (10:08)
[2019-08-31] MEDS: DULoxetine Hcl 60 MG Capsule PO (10:08)
[2019-08-31] MEDS: busPIRone 5 MG Tablet 10 MG PO (10:08)
[2019-08-31] MEDS: Docusate Sodium 100 MG Capsule PO (10:08)
[2019-08-31] MEDS: APIXABAN 2.5 MG TABLET PO (10:08)
[2019-08-31 10:12] VITALS: PULSE 76
[2019-08-31] MEDS: Metoprolol Tartrate 25 MG Tablet 12.5 MG PO (10:12)
[2019-08-31 10:30] LABS: Bedside Glucose 161 mg/dL (70-110)
[2019-08-31 11:00] VITALS: O2SAT 97
--- NOTE | 2019-08-31 11:08 | CASEMGMT ---
Addendum entered by Tarik Aly 08/31/19 12:54: return call received from Faviocecily @ [employer]. She is working with [facility] to staff aides for pt and will call her when she gets home. Yobany KHALIL Original Note: RN CM Assessment Presentation: Nausea/Vomiting; gastroenteritis Intro role of CM and purpose of RN CM assessment. Demographics, PCP and Pharmacy verified. Pt lives in apartment with her sister. States she is to have aide services through [employer], but it cannot be staffed. PCP: Dr. Oliveira Specialists: Dr. Jacome [facility] [employer] [facility] Prescription Benefit: yes LNOK: [facility] Services: JOSEFINA Sarah. Called, message left re: pt admission and requesting information on aide services. Per parks and recreation worker staff member Edwin Ye pt is eligible for 26 hours of aide services. (said this was staffed through [employer], but pt states she does not have aide services for a year due to difficulty in staffing). Attempted call to [employer], phone is not functioning . Living Arrangements: Lives in one story apartment. Pt states her sister/daughters are helping her presently with any care needs. Pt states she has equipment in home, no needs identified at this time Transportation: sister drives, or rides through [facility] DME: w/c, medical alert, cane, walker raised toilet seat, shower chair, grab bars, bipap, and 3 liters home oxygen thru [employer], nebulizer, Bipap through [facility] per pt. HHC/SNF: pt states she has had [facility] in past. Will consider if recommended on dc, but pt stated I'm not sure what they would need to do Patient DC goals: Home DC PLAN: Home on dc with family- PT/OT evaluations pending. Yobany KHALIL
--- NOTE | 2019-08-31 11:39 | DCINST_ITS ---
- Discharge Diagnoses Current Active Problems: Current Active and Chronic Problems (Last Updated 08/30/19 @ 16:01 by Zuhair Cohn DO) Gastroenteritis (Acute) Lactic acidosis (Acute) You will use the following diet at home:: Calorie/Carbohydrate Controlled (specify 1200, 1400, etc) - 1800 Call your doctor if you observe: Fever of 101 or Higher, - - intractable nausea and vomiting Allergies/Adverse Reactions: Allergies ciprofloxacin [From Cipro] Allergy (Verified 08/11/19 10:11) Hives latex Allergy (Verified 08/11/19 10:11) matos me niacin [From Niaspan Extended-Release] Allergy (Verified 08/11/19 10:11) Hives ondansetron [From Zofran] Allergy (Verified 08/11/19 10:11) Unknown Xanthines Allergy (Verified 08/11/19 10:11) Unknown orphenadrine citrate [From Norgesic] Adverse Reaction (Verified 08/11/19 10:11) groggy medical tape Adverse Reaction (Uncoded 08/11/19 10:11) blisters Medications to take at Discharge Atorvastatin Calcium [Lipitor] 40 mg PO DAILY 02/03/18 Duloxetine Hcl [Cymbalta] 60 mg PO DAILY 02/03/18 Insulin Lispro [Humalog KwikPen] 20 unit SQ LUNCH 02/03/18 Insulin Lispro [Humalog KwikPen] 24 unit SQ DINNER 02/03/18 Insulin Lispro [Humalog] 14 unit SQ BREAKFAST 02/03/18 Isosorbide Mononitrate [Imdur] 90 mg PO DAILY 02/03/18 Levothyroxine [Synthroid] 100 mcg PO DAILY 02/03/18 Apixaban [Eliquis] 2.5 mg PO BID 05/17/18 Ascorbic Acid [Vitamin C] 500 mg PO DAILY@0800 05/17/18 Omeprazole [Prilosec] 20 mg PO DAILY 05/17/18 Albuterol IH (ProAir) [Proair Hfa] 2 puff INHALATION Q4H PRN PRN 08/05/18 Aspirin E.C. [Ecotrin] 81 mg PO DAILY@0800 09/02/18 Sennosides [Senna] 8.6 mg PO BID 09/02/18 Trueplus Glucose Chew 4 tab PO PRN PRN 09/02/18 docusate sodium 100 mg capsule 100 mg PO DAILY cap 06/08/19 ergocalciferol (vitamin D2) 50,000 unit capsule 50,000 unit PO QWEEK 06/08/19 fluticasone propionate 50 mcg/actuation nasal spray,suspension 2 spray INTRANASAL DAILY 06/08/19 furosemide 40 mg tablet 20 mg PO BID 06/08/19 lisinopril 10 mg tablet 5 mg PO DAILY 06/08/19 metoprolol tartrate 100 mg tablet 100 mg PO BID 06/08/19 nitroglycerin 0.4 mg sublingual tablet 0.4 mg SUBLINGUAL Q5-15M PRN 06/08/19 potassium chloride ER 10 mEq tablet,extended release 10 meq PO DAILY 06/08/19 promethazine 25 mg tablet 25 mg PO Q8H PRN tab 06/08/19 triamcinolone acetonide 0.1 % topical cream 1 applic TOPICAL BID PRN 06/08/19 allopurinol 100 mg tablet 100 mg PO DAILY 08/11/19 buspirone 10 mg tablet 10 mg PO BID 08/11/19 diltiazem CD 120 mg capsule,extended release 24 hr 120 mg PO DAILY #30 cap 08/11/19 insulin glargine (U-100) 100 unit/mL (3 mL) subcutaneous pen 44 unit SC BID ml 08/11/19 Cholecalciferol (VIT D3) [Vitamin D3] 1,000 unit PO DAILY 08/30/19 Cyclosporine [Restasis] 1 ea OP BID 08/30/19 DiphenhydrAMINE [Benadryl] 25 mg PO BID PRN PRN 08/30/19 Fluorometholone [Fml] 1 drp OP Q4H PRN 08/30/19 Guaifenesin/Pseudoephedrne HCl [Mucinex D ER 1,200-120 mg Tab] 1 ea PO BID 08/30/19 Ibuprofen [Motrin Ib] 200 mg PO Q6H PRN PRN 08/30/19 Metoprolol Tartrate 0.5 tab PO BID 08/30/19 metFORMIN (XR) [Glucophage Xr] 1,000 mg PO DAILY #0 08/31/19 Primary Care Physician: Bhupendra Oliveira MD [Primary Care Provider] - Within 1 Week Test Results: Test results from this visit will be discussed in further detail at your follow- up appointment, if applicable. Proposed Discharge Date: 08/31/19
--- NOTE | 2019-08-31 11:46 | DS.PCM_ITS ---
Discharge Date and Diagnosis - Problem List Patient Problems: Active and Suspected Problems (Last Updated 08/30/19 @ 16:01 by Zuhair Cohn DO) Gastroenteritis (Acute) Lactic acidosis (Acute) Date of Admission: 08/30/19 Date of Discharge: 08/31/19 - Primary Discharge Diagnosis Active and Suspected Problems (Last Updated 08/30/19 @ 16:01 by Zuhair Cohn DO) Gastroenteritis (Acute) Lactic acidosis (Acute) 1. acute gastroenteritis * resolved since arrival * supportive mgmt * suspected viral 2. SIRS * POA * 2/2 above * supportive mgmt * received pip/tazo and metronidazole in ED--will not continue with abx now. 3. Lactic acidosis * 2/2 N/V and metformin * hold metformin * no additional work up at this time, 4.DM2 * continue basal for now * hold prandial * SSI * had hypoglycemia, but will resume diet. - Secondary Discharge Diagnosis Chronic Problems (Last Updated 08/30/19 @ 16:01 by Zuhair Cohn DO) Presence of stent in coronary artery (Chronic ~12/07/03) PCI/Stent to the prox 1st Diag branch 12/07/2003 Mixed hyperlipidemia (Chronic) Atherosclerotic heart disease of [place] coronary artery without angina pectoris (Chronic) Essential hypertension (Chronic) Paroxysmal A-fib (Chronic) Diabetes mellitus type 2 in obese (Chronic) Hypothyroidism (Chronic) GERD (gastroesophageal reflux disease) (Chronic) COPD (chronic obstructive pulmonary disease) (Chronic) Chronic respiratory insufficiency (Chronic) On home oxygen at night PARESH (obstructive sleep apnea) (Chronic) non-complaint with CPAP Hospital Course and Treatment Operations: None Procedures: None Summary of Care Provided: The patient is a 64 year old F presents with nausea, vomiting and diarrhea. Began suddenly and presented to the emergency room where she had an elevated lactic acid of 3.3. There was concern for severe sepsis from emergency room patient did receive broad-spectrum antibiotics. Is my feeling the patient had the lactic acidosis due to volume depletion given the vomiting and diarrhea plus her concomitant use of metformin. Metformin was held and patient was observed in the hospital. Patient overall did well and is feeling better. Patient's diet has been advanced and she tolerates that then patient will be discharged. Patient did have some hypoglycemia but did improve with medication. That was likely contributed to the nausea and vomiting and decreased oral intake as well as being on insulin. Overall felt to be related with a gastroenteritis and no other acute bacterial etiology was of concern. If patient tolerates diet then she will be discharged home in stable condition. [] Patient Problems: Active and Suspected Problems (Last Updated 08/30/19 @ 16:01 by Zuhair Cohn DO) Gastroenteritis (Acute) Lactic acidosis (Acute) - Physical Exam Vitals/I&O's: Vital Signs Temp Pulse Resp BP Pulse Ox 36.9 C 76 20 H 124/76 H 100 08/31/19 10:02 08/31/19 10:12 08/31/19 10:02 08/31/19 10:02 08/31/19 10:02 Oxygen Flow Rate (L/min) 2 Oxygen Delivery Method Nasal Cannula Weight: 91.7 kg Body Mass Index (BMI) 36.9 Finger Stick Blood Glucose 263 Intake and Output for Last 24 Hours 08/29/19 08/30/19 08/31/19 23:59 23:59 23:59 Intake Total 4182.8 / 4182.8 400 / 400 Output Total 1500 / 1500 Balance 4182.8 / 4182.8 -1100 / -1100 General: Alert, Cooperative, No apparent distress HEENT: Atraumatic, Normocephalic Oral: Moist Mucosa, No Gingival or Mucosal Lesions/ Ulcerations Neck: No Nodes, Trachea Midline Lungs: Clear to auscultation, Normal air movement, No rhonchi, No wheeze, No rales Cardiovascular: Regular rate, Regular Rhythm, Normal S1, Normal S2, No murmurs Abdomen: Bowel Sounds Present, Soft, Non Tender, Non-Distended, No Hepato- splenomegaly Extremities: No edema, No Calf Tenderness Psych/Mental Status: Normal Affect, Appropriate Microbiology Past 72 Hours 08/30/19 07:31 Mucosa - Nasopharyngeal Influenza Types A,B Direct FA (JEZ) - Final Laboratory Results 08/30/19 07:05: Diff Path Review Reviewed 08/30/19 11:25: Lactic Acid 2.4 H* 08/30/19 15:24: POC Glucose 87 08/30/19 21:55: POC Glucose 84 08/31/19 06:04: WBC Cancelled, Corrected WBC Cancelled, RBC Cancelled, Hgb Cancelled, Hct Cancelled, MCV Cancelled, MCH Cancelled, MCHC Cancelled, RDW Std Deviation Cancelled, RDW Coeff of Aubrey Cancelled, Plt Count Cancelled, MPV Cancelled, Immature Gran % (Auto) Cancelled, Neut % (Auto) Cancelled, Lymph % (Auto) Cancelled, Nicol[place] % (Auto) Cancelled, Eos % (Auto) Cancelled, Baso % (Auto) Cancelled, Absolute Neuts (auto) Cancelled, Absolute Lymphs (auto) Cancelled, Total Counted Cancelled, Neutrophils % (Manual) Cancelled, Band Neutrophils % Cancelled, Lymphocytes % (Manual) Cancelled, Monocytes % (Manual) Cancelled, Eosinophils % (Manual) Cancelled, Basophils % (Manual) Cancelled, Metamyelocytes % Cancelled, Myelocytes % Cancelled, Promyelocytes % Cancelled, Blast Cells % Cancelled, Plasma Cell % (Manual) Cancelled, Other Cells % Cancelled, Nucleated RBC % Cancelled, Nucleated RBCs/100 WBC Cancelled, Differential Comment Cancelled, Diff Path Review Cancelled, Hypersegmented Neuts Cancelled, Atypical Lymphocytes Cancelled, Reactive Lymphocytes Cancelled, Smudge Cells Cancelled, Toxic Granulation Cancelled, Toxic Vacuolation Cancelled, Dohle Bodies Cancelled, Sunny Rods Cancelled, Platelet Estimate Cancelled, Plt Morphology Comment Cancelled, RBC Morphology Cancelled, Polychromasia Cancelled, Hypochromasia Cancelled, Poikilocytosis Cancelled, Basophilic Stippling Cancelled, Anisocytosis Cancelled, Microcytosis Cancelled, Macrocytosis Cancelled, Spherocytes Cancelled, Sickle Cells Cancelled, Target Cells Cancelled, Tear Drop Cells Cancelled, Ovalocytes Cancelled, Stomatocytes Cancelled, Clarke-Jericho Bodies Cancelled, Claudia Cells Cancelled, Bite Cells Cancelled, Crenated Cell Cancelled, Acanthocytes (Spur) Cancelled, Rouleaux Cancelled, Schistocytes Cancelled 08/31/19 06:04: Sodium 141, Potassium 4.3, Chloride 114 H, Carbon Dioxide 22.0, Anion Gap 5, BUN 14, Creatinine 0.89, Estim Creat Clear Calc 50.51, Est GFR (MDRD) Af Amer 82, Est GFR (MDRD) Non-Af 68, BUN/Creatinine Ratio 15.8, Glucose 63 L, Calcium 8.1 L, Total Bilirubin 0.60, AST 34, ALT 15, Alkaline Phosphatase 61, Total Protein 5.8 L, Albumin 2.4 L, Globulin 3.4, Albumin/Globulin Ratio 0.7 L 08/31/19 06:27: POC Glucose 33 L* 08/31/19 06:57: POC Glucose 69 L 08/31/19 07:00: WBC 6.7, RBC 3.15 L, Hgb 12.4, Hct 30.4 L, MCV 96.5, MCH 39.4 H, MCHC 40.8 H, RDW Std Deviation 54.5 H, RDW Coeff of Aubrey 18.0 H, Plt Count 188, MPV 9.9, Immature Gran % (Auto) 0.400, Neut % (Auto) 72.3 H, Lymph % (Auto) 10.8 L, Nicollet % (Auto) 12.0 H, Eos % (Auto) 3.9, Baso % (Auto) 0.6, Absolute Neuts (auto) 4.8, Absolute Lymphs (auto) 0.72 L, Nucleated RBC % 0 08/31/19 07:29: POC Glucose 94 08/31/19 09:55: POC Glucose 161 H Current Medications Acetaminophen (Tylenol) 650 mg PO Q6H PRN PRN PRN Reason: Pain Score 1-3/Temp > 100.7 F Acetaminophen (Tylenol) 650 mg RECTAL Q4H PRN PRN PRN Reason: Pain Score 1-3/Temp > 100.7 F Albuterol Sulfate (Ventolin Aerosols) 2.5 mg INHALATION Q4H PRN PRN Reason: SOB &/OR WHEEZING Allopurinol (Zyloprim) 100 mg PO DAILY [facility] Last Admin: 08/31/19 10:07 Dose: 100 mg Documented by: Apixaban (Eliquis) 2.5 mg PO BID [facility] Last Admin: 08/31/19 10:08 Dose: 2.5 mg Documented by: Artificial Tears (Tears Naturale, Artificial Tears) 0 drop EACH EYE Q2H PRN Ascorbic Acid (Vitamin C) 500 mg PO DAILY@0800 [facility] Last Admin: 08/31/19 10:08 Dose: 500 mg Documented by: Aspirin (Ecotrin) 81 mg PO DAILY@0800 [facility] Last Admin: 08/31/19 10:08 Dose: 81 mg Documented by: Buspirone HCl (Buspar) 10 mg PO BID [facility] Last Admin: 08/31/19 10:08 Dose: 10 mg Documented by: Dextrose (D50w Syringe) 0 gm IV X1 PRN; Protocol PRN Reason: Hypoglycemia Diltiazem HCl (Cardizem Cd) 120 mg PO DAILY [facility] Last Admin: 08/31/19 10:08 Dose: 120 mg Documented by: Diphenhydramine HCl (Benadryl) 25 mg PO BID PRN PRN PRN Reason: ITCHING Docusate Sodium (Colace) 100 mg PO DAILY [facility] Last Admin: 08/31/19 10:08 Dose: 100 mg Documented by: Duloxetine HCl (Cymbalta) 60 mg PO DAILY [facility] Last Admin: 08/31/19 10:08 Dose: 60 mg Documented by: Ergocalciferol (Vitamin D) 50,000 unit PO [place] [facility] Ferrous Gluconate (Ferrous Gluconate) 324 mg PO DAILY [facility] Last Admin: 08/31/19 10:07 Dose: 324 mg Documented by: Fluticasone Propionate (Flonase Nasal [place]) 2 spray NASAL DAILY [facility] Last Admin: 08/31/19 10:06 Dose: 2 spray Documented by: Glucagon () 1 mg IM .X1 PRN PRN Reason: Hypoglycemia Insulin Glargine (Lantus (Bk)) 44 units SC BID [facility] Last Admin: 08/31/19 10:15 Dose: 44 u Documented by: Insulin Human Lispro (Humalog Kwikpen (Bk)) 0 unit SC TIDAC [facility]; Protocol Last Admin: 08/31/19 06:49 Dose: Not Given Documented by: Isosorbide Mononitrate (Imdur) 90 mg PO DAILY [facility] Last Admin: 08/31/19 10:08 Dose: 90 mg Documented by: Levothyroxine Sodium (Synthroid) 100 mcg PO DAILY@0600 [facility] Last Admin: 08/31/19 06:22 Dose: 100 mcg Documented by: Lisinopril (Zestril) 10 mg PO DAILY [facility] Last Admin: 08/31/19 10:07 Dose: 10 mg Documented by: Metoprolol Tartrate (Lopressor (Beta Kaye)) 100 mg PO BID [facility] Last Admin: 08/31/19 10:08 Dose: 100 mg Documented by: Metoprolol Tartrate (Lopressor (Beta Kaye)) 12.5 mg PO BID [facility] Last Admin: 08/31/19 10:12 Dose: 12.5 mg Documented by: Nitroglycerin (Nitrostat) 0.4 mg SUBLINGUAL .Q5-15M PRN PRN Reason: chest pain Ondansetron HCl (Zofran) 4 mg IV Q8H PRN PRN PRN Reason: NAUSEA/VOMITING Pantoprazole Sodium (Protonix) 20 mg PO DAILY [facility] Last Admin: 08/31/19 10:07 Dose: 20 mg Documented by: Potassium Chloride (K-Dur) 10 meq PO DAILY [facility] Last Admin: 08/31/19 10:07 Dose: 10 meq Documented by: Promethazine HCl (Phenergan Tablet) 25 mg PO Q8H PRN PRN Reason: nausea and vomiting Senna (Senokot) 1 tablet PO BID [facility] Last Admin: 08/31/19 10:06 Dose: 1 tablet Documented by: Sodium Chloride () 10 - 40 ml IV UD PRN PRN Reason: SALINE FLUSH Discharge Diet: 1800 Calorie Control Diet Discharge Activity: Return to Normal Activity Call your doctor if you observe: Fever of 101 or Higher, - - intractable nausea and vomiting Home Medications: Medications to take at Discharge Atorvastatin Calcium [Lipitor] 40 mg PO DAILY 02/03/18 Duloxetine Hcl [Cymbalta] 60 mg PO DAILY 02/03/18 Insulin Lispro [Humalog KwikPen] 20 unit SQ LUNCH 02/03/18 Insulin Lispro [Humalog KwikPen] 24 unit SQ DINNER 02/03/18 Insulin Lispro [Humalog] 14 unit SQ BREAKFAST 02/03/18 Isosorbide Mononitrate [Imdur] 90 mg PO DAILY 02/03/18 Levothyroxine [Synthroid] 100 mcg PO DAILY 02/03/18 Apixaban [Eliquis] 2.5 mg PO BID 05/17/18 Ascorbic Acid [Vitamin C] 500 mg PO DAILY@0800 05/17/18 Omeprazole [Prilosec] 20 mg PO DAILY 05/17/18 Albuterol IH (ProAir) [Proair Hfa] 2 puff INHALATION Q4H PRN PRN 08/05/18 Aspirin E.C. [Ecotrin] 81 mg PO DAILY@0800 09/02/18 Sennosides [Senna] 8.6 mg PO BID 09/02/18 Trueplus Glucose Chew 4 tab PO PRN PRN 09/02/18 docusate sodium 100 mg capsule 100 mg PO DAILY cap 06/08/19 ergocalciferol (vitamin D2) 50,000 unit capsule 50,000 unit PO QWEEK 06/08/19 fluticasone propionate 50 mcg/actuation nasal spray,suspension 2 spray INTRANASAL DAILY 06/08/19 furosemide 40 mg tablet 20 mg PO BID 06/08/19 lisinopril 10 mg tablet 5 mg PO DAILY 06/08/19 metoprolol tartrate 100 mg tablet 100 mg PO BID 06/08/19 nitroglycerin 0.4 mg sublingual tablet 0.4 mg SUBLINGUAL Q5-15M PRN 06/08/19 potassium chloride ER 10 mEq tablet,extended release 10 meq PO DAILY 06/08/19 promethazine 25 mg tablet 25 mg PO Q8H PRN tab 06/08/19 triamcinolone acetonide 0.1 % topical cream 1 applic TOPICAL BID PRN 06/08/19 allopurinol 100 mg tablet 100 mg PO DAILY 08/11/19 buspirone 10 mg tablet 10 mg PO BID 08/11/19 diltiazem CD 120 mg capsule,extended release 24 hr 120 mg PO DAILY #30 cap 08/11/19 insulin glargine (U-100) 100 unit/mL (3 mL) subcutaneous pen 44 unit SC BID ml 08/11/19 Cholecalciferol (VIT D3) [Vitamin D3] 1,000 unit PO DAILY 08/30/19 Cyclosporine [Restasis] 1 ea OP BID 08/30/19 DiphenhydrAMINE [Benadryl] 25 mg PO BID PRN PRN 08/30/19 Fluorometholone [Fml] 1 drp OP Q4H PRN 08/30/19 Guaifenesin/Pseudoephedrne HCl [Mucinex D ER 1,200-120 mg Tab] 1 ea PO BID 08/30/19 Ibuprofen [Motrin Ib] 200 mg PO Q6H PRN PRN 08/30/19 Metoprolol Tartrate 0.5 tab PO BID 08/30/19 metFORMIN (XR) [Glucophage Xr] 1,000 mg PO DAILY #0 08/31/19 Primary Care Physician: Bhupendra Oliveira MD [Primary Care Provider] - Within 1 Week Disposition: Home Minutes spent on discharge:: 35 Patient Condition:: Good Medical Necessity - Tobacco Use Smoking Status: Former smoker Meaningful Use Info Meaningful Use Diagnoses (Choose all that apply): None applicable Code Visit Inpatient E&M: 79284 Disch Hosp
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
[2019-08-31 12:25] LABS: Bedside Glucose 112 mg/dL (70-110)
--- NOTE | 2019-08-31 14:54 | CASEMGMT ---
Social Work Note Pt is discharging home today. BLAKE placed a call to pt's JOSEFINA Chan at [facility] and left her a message informing her that pt will be discharged home today. BLAKE faxed discharge paperwork to [facility]. Joyce Davila [employer]GR[employer]HER [employer], GEAR TESTER
[2019-08-31 15:20] VITALS: BP 97/68; PULSE 69; RESP 18; TEMP 36.9; O2SAT 97
--- NOTE | 2019-09-02 15:22 | CASEMGMT ---
TOM CM DC PHONE CALL DC DATE: 08/31/19 DC Disposition: Home Diagnosis on Discharge: Gastroenteritis LACE/STRATA: 05/25 Listed Home number has been disconnected. Attempted cell phone, voice mail is full. Yobany PACHECO RN ACM
== END 2019-08-31 16:33 | disposition home or self-care (01) | DRG 392 ==
LOC: ED 10:01 → MS3 10:37
PROVIDERS: Emergency Medicine; Emergency Provider Emergency Medicine; Family Provider Family Medicine; PCP Family Medicine
DX: K52.9 Noninfective gastroenteritis and colitis, unspecified (principal); E87.2 Acidosis; Z99.81 Dependence on supplemental oxygen; I25.10 Atherosclerotic heart disease of native coronary artery without angina pectoris; E78.2 Mixed hyperlipidemia; K21.9 Gastro-esophageal reflux disease without esophagitis; G47.33 Obstructive sleep apnea (adult) (pediatric); J44.9 Chronic obstructive pulmonary disease, unspecified; E11.649 Type 2 diabetes mellitus with hypoglycemia without coma; R06.89 Other abnormalities of breathing; E03.9 Hypothyroidism, unspecified; Z87.891 Personal history of nicotine dependence; Z79.4 Long term (current) use of insulin; Z95.5 Presence of coronary angioplasty implant and graft; I48.0 Paroxysmal atrial fibrillation; I10 Essential (primary) hypertension
CPT/HCPCS: 36415; 71045; 74177; 80053; 81001; 82962; 83605; 83690; 84484; 85025; 87040; 87804; 93005; 97802; 99285; J7030; Q9967; A4216

== ENCOUNTER → 2019-09-03 06:23 | Outpatient (CLI) | payer MEDICARE, SELFPAY ==
[2019-08-11 10:11] VITALS: BMI 36.9
[2019-08-30 11:06] VITALS: BMI 36.9
--- NOTE | 2019-09-03 17:02 | STRESSREP_ITS ---
Stress Test Report Date: ? Procedure: Pharmacologic stress nuclear imaging study Indications: Chest pain; CAD; PCI Consent: Per the patient Procedure: The patient underwent pharmacologic (Regadenoson) evaluation with a peak heart rate of 131 beats per minute (83 %predicted maximal heart rate) and a peak blood pressure of 130/72 mmHg. The baseline ECG demonstrated atrial fibrillation: Nonspecific ST/T wave abnormality. The peak pharmacologic ECG demonstrated no obvious ECG changes. There was a rare PVC pretest. There was no complaint of chest discomfort during pharmacologic infusion or recoveryp. The examination was discontinued secondary to completion of protocol. Impression: 1. Pharmacologic (Regadenoson) evaluation 2. Peak pharmacologic ECG with no obvious ECG changes. 3. There was a rare PVC pretest. 4. Nuclear images pending Myocardial perfusion imaging study: Technique: The patient was injected with 11.0 millicuries of technetium 99m Cardiolite and subsequently rest SPECT Cardiolite nuclear imaging was obtained in the horizontal long, vertical long, and short axis views. The patient underwent pharmacologic (Regadenoson) evaluation with a peak heart rate of 131 beats per minute (83 % percent predicted maximal heart rate) and a peak blood pressure of 130/72 mmHg. The patient was injected with 33 millicuries of technetium 99m Cardiolite and subsequently stress SPECT Cardiolite nuclear imaging was obtained in the horizontal long, vertical long, and short axis views. A gated Cardiolite study at peak stress was obtained. Interpretation: Rest and stress SPECT Cardiolite nuclear imaging status post realignment, normalization, and attenuation correction demonstrate the appearance of an area of diminished myocardial perfusion/tracer uptake in portions of the basal to mid lateral segments which appears to be somewhat more prominent following stress in the mid lateral segment area. There is end systolic thickening and brightening. The gated Cardiolite study demonstrates myocardial thickening and inward wall motion. The reported LVEF is 57 %. Impression: 1. Rest and stress SPECT Cardiolite nuclear imaging demonstrate myocardial perfusion changes potentially compatible with an area of previous myocardial injury/infarction portions of the basal to mid lateral segment with post stress changes appearing compatible with an area of fuentes-infarct related myocardial ischemia. 2. The gated Cardiolite study reports an LVEF of 57 %. This note was generated with SmartEquipation software. It may contain incorrect words, spelling, and punctuation that were not noted in checking the note before signing.
== END ==
PROVIDERS: Family Provider Family Medicine; PCP Family Medicine; Referring Provider Internal Medicine Cardiovascular Disease; Visit Provider Internal Medicine Cardiovascular Disease
DX: R07.9 Chest pain, unspecified (principal); I25.10 Atherosclerotic heart disease of native coronary artery without angina pectoris; I10 Essential (primary) hypertension; E78.2 Mixed hyperlipidemia; Z95.5 Presence of coronary angioplasty implant and graft
CPT/HCPCS: 78452; 93017; A9500; A4216; J2785

== ENCOUNTER 2019-09-28 09:00 | Day surgery (SDC) | payer MEDICARE, SELFPAY ==
[2019-08-30 11:06] VITALS: BMI 36.9
--- NOTE | 2019-09-23 05:16 | HP_ITS ---
ADDENDUM by mUa Vela on 09/23/19 at 1716 Addendum entered and electronically signed by MORGAN Granados 09/23/19 17:16: HPI History of Present Illness Surgical H&P: Yes Details: Patient underwent a stress test for her symptoms. Stress test demonstrated: 1. Rest and stress SPECT Cardiolite nuclear imaging demonstrate myocardial perfusion changes potentially compatible with an area of previous myocardial injury/infarction portions of the basal to mid lateral segment with post stress changes appearing compatible with an area of fuentes-infarct related myocardial ischemia. 2. The gated Cardiolite study reports an LVEF of 57 %. Based on stress test results it was recommended that patient undergo a diagnostic heart catheterization. This is scheduled for September 28, [address] Ramsey. Assessment & Plan 1. Atherosclerosis of [place] coronary artery of [place] heart without angina pectoris I25.10 Orders Orders: 12 Lead EKG performed by BMS 08/11/19 Nuclear Stress Test - Chemical 09/03/19 2. Presence of stent in coronary artery Z95.5 PCI/Stent to the prox 1st Diag branch 12/07/2003 Orders Orders: 12 Lead EKG performed by BMS 08/11/19 Nuclear Stress Test - Chemical 09/03/19 3. Paroxysmal atrial fibrillation I48.0 Orders Orders: 12 Lead EKG performed by BMS 08/11/19 4. Mixed hyperlipidemia E78.2 Orders Orders: Nuclear Stress Test - Chemical 09/03/19 5. Essential hypertension I10 Orders Orders: 12 Lead EKG performed by BMS 08/11/19 Nuclear Stress Test - Chemical 09/03/19 6. Precordial pain R07.2 Plan Detail Other Medications New: diltiazem HCl (Cardizem CD) 120 mg PO DAILY 30 caps 6RF Discontinued: metoprolol tartrate Take with metoprolol tartrate 100mg = 112.5mg BID Discontinued Reason: Order Changed 12.5 mg PO BID Follow Up 3 Months (PFM/MM/) 09/23/19 1716 <Electronically signed by Uma Juares> Date _ Uma Vela cc: Bhupendra Oliveira MD ~* Addendum HPI HPI History of Present Illness Details: This is a 64-year-old white female who presents today for outpatient cardiovascular follow-up to reestablish cardiovascular care with the [facility] for a history of underlying CAD, PCI, atrial fibrillation, chronic diastolic mediated CHF, superimposed on hyperlipidemia, hypertension, diabetes mellitus, chronic renal insufficiency, a history of thromboembolic disease with DVT/PE, and obstructive sleep apnea. She has been previously followed by [facility] cardiology. However during her [facility] cardiology follow-up she did have evaluation by Dr. Marvin with diagnostic cardiac catheterization performed in 2018. It appears that over time she had been diagnosed with underlying CAD. She had undergone evaluation in November 2003 at [facility]. Based on medical records available for review it appears that she she had a PTCA/stent to the first diagonal branch at that time. She had undergone PTCA/stenting procedure. Based upon medical records obtained for review it appears that in August 2004 at [facility] she underwent diagnostic cardiac catheterization. The left main coronary artery was unremarkable, the LAD demonstrated a distal 40% stenosis, the LCx was occluded with [id number]-[id number] collateral flow, the RCA was dominant with a PDA with 30% stenosis, the left ventricle was reported as normal. It also appears she underwent evaluation at [facility] in November 2005 with a diagnostic cardiac catheterization. At that time the left ventricle was thought to be normal with an LVEF of 60%, the left main coronary artery had 10 to 15% stenosis, the LAD had 35% stenosis distally, the LCx was occluded, the RCA was patent with the PDA having a 50% mid stenosis, the diagonal branch stent was reported as patent. She underwent diagnostic cardiac catheterization at [facility] in April 2007. At that time the left ventricle again was normal with an LVEF of 55%, the left main coronary artery had 50% stenosis, the LAD was patent with distal 30% stenosis, the diagonal branch stent was patent. The LCx was again noted to be subtotally occluded and recanalized and also minimally collateralized from the right system. The RCA had a PDA with a 40% stenosis. She had a repeat cardiac catheterization [facility] on 10-13-2009. Based upon the report the left ventricle was thought to be normal with an LVEF of 65%, the left main coronary artery was patent with 10 to 15% stenosis, the LAD had mid 30 to 35% stenosis. The diagonal branch was patent. There was notation of distal in-stent 30 to 40% stenosis. The LCx was occluded. There is notation of left to left collaterals. The RCA was patent with the PDA having 30 to 50% stenosis. There was a cardiac catheterization performed at [facility] in [place], [place] on 08-14-2012. At that time the left ventricle was normal with an LVEF of 60%, the left main coronary artery was not reported as having any significant disease. The LAD had a mid 30% stenosis. The diagonal branch stent was reported as free of disease, the LCx was reported as having a 95% stenosis. The RCA was reported as having a PDA being free of disease, a posterior lateral branch having 50% stenosis in the midportion. The RCA itself was noted as having a mid 30% stenosis. The patient underwent diagnostic cardiac catheterization at [facility] on 07-14-13. Per the report the left main coronary artery was patent, the LAD had proximal 30% stenosis. The diagonal branch stent was patent. The LCx was severely diseased. The RCA was noted to have a proximal and mid 20 to 30% stenosis. The patient underwent repeat diagnostic cardiac catheterization on 06-21-2015 at [facility]. Per the report the left main coronary artery was noted to be minimally diseased, the LAD was reported as having no high-grade stenosis. The diagonal branch stent was patent. A nondominant LCx artery was reported as being subtotally occluded. The RCA had mild to moderate disease reported. The patient's most recent diagnostic cardiac catheterization appears to have been performed at [facility] on 12-23-17. At that time per the report the left ventricle was normal with an LVEF of 75%, the left main coronary artery had 20% stenosis, the LAD had mid 40% stenosis and distal 50% stenosis, the LCx was occluded, the RCA had less than 30% stenosis. She was recommended for continued medical management. She has been treated for her coronary disease as noted above. She has been treated for concerns of atrial fibrillation. She has been on rate control therapy with different combination of medications at different times. She has been on anticoagulant therapy. She has been treated for concerns of CHF. This is superimposed on treatment for her other multiple medical issues. At the present time she states her main concern is intermittent chest pressure/heaviness. She has used nitroglycerin for this at times. This is similar to discomfort she has had in the past. She has had chronic shortness of breath and dyspnea and wears chronic O2 therapy. There has been no report of near syncope or syncope. She has not had any ongoing peripheral pitting edema of the lower extremities. As part of her evaluation through the [facility] system she was noted to have a transthoracic echocardiogram performed in November of this year. Per the report her left ventricle was thought to be normal with an LVEF of 60%. She was reported as having no significant valvular heart disease. She had an ECG in the office today. She was noted to be in atrial fibrillation with an elevated ventricular rate with a leftward axis, poor R wave progression, nonspecific ST and T wave abnormality. She presented today in a wheelchair with O2 nasal cannula. Intake Vital Signs 08/11/19 Height 5 ft 2 in 08/11/19 Weight: 202 lb 08/11/19 Body Mass Index (BMI) 36.9 08/11/19 Blood Pressure 110/68 08/11/19 Blood Pressure Location Lt brachial 08/11/19 Blood Pressure Position Sitting 08/11/19 Respiratory Rate 18 08/11/19 Pulse Rate 108 H 08/11/19 Pulse Source Auscultation 08/11/19 Body Mass Index (BMI) 39.5 Intake Visit Reasons: CP/Ref. Roxanne Echo Technologist Required: No Accompanied by: Self Allergies ciprofloxacin [From Cipro] Allergy (Verified 08/11/19 10:11) Hives latex Allergy (Verified 08/11/19 10:11) matos me niacin [From Niaspan Extended-Release] Allergy (Verified 08/11/19 10:11) Hives ondansetron [From Zofran] Allergy (Verified 08/11/19 10:11) Unknown Xanthines Allergy (Verified 08/11/19 10:11) Unknown orphenadrine citrate [From Norgesic] Adverse Reaction (Verified 08/11/19 10:11) groggy medical tape Adverse Reaction (Uncoded 08/11/19 10:11) blisters Medications Atorvastatin Calcium [Lipitor] 40 mg PO DAILY 02/03/18 [History Confirmed 08/11/19] Duloxetine Hcl [Cymbalta] 60 mg PO DAILY 02/03/18 [History Confirmed 08/11/19] Insulin Lispro [Humalog KwikPen] 20 unit SQ LUNCH 02/03/18 [History Confirmed 08/11/19] Insulin Lispro [Humalog KwikPen] 24 unit SQ DINNER 02/03/18 [History Confirmed 08/11/19] Insulin Lispro [Humalog] 14 unit SQ BREAKFAST 02/03/18 [History Confirmed 08/11/19] Isosorbide Mononitrate [Imdur] 90 mg PO DAILY 02/03/18 [History Confirmed 08/11/19] Levothyroxine [Synthroid] 100 mcg PO DAILY 02/03/18 [History Confirmed 08/11/19] Apixaban [Eliquis] 2.5 mg PO BID 05/17/18 [History Confirmed 08/11/19] Ascorbic Acid [Vitamin C] 500 mg PO DAILY@0800 05/17/18 [History Confirmed 08/11/19] Omeprazole [Prilosec] 20 mg PO DAILY 05/17/18 [History Confirmed 08/11/19] Albuterol IH (ProAir) [Proair Hfa] 2 puff INHALATION Q4H PRN PRN 08/05/18 [History Confirmed 08/11/19] Aspirin E.C. [Ecotrin] 81 mg PO DAILY@0800 09/02/18 [History Confirmed 08/11/19] Sennosides [Senna] 8.6 mg PO BID 09/02/18 [History Confirmed 08/11/19] Trueplus Glucose Chew 4 tab PO PRN PRN 09/02/18 [History Confirmed 08/11/19] docusate sodium 100 mg capsule 100 mg PO DAILY cap 06/08/19 [History Confirmed 08/11/19] ergocalciferol (vitamin D2) 50,000 unit capsule 50,000 unit PO QWEEK 06/08/19 [History Confirmed 08/11/19] fluticasone propionate 50 mcg/actuation nasal spray,suspension 2 spray INTRANASAL DAILY 06/08/19 [History Confirmed 08/11/19] furosemide 40 mg tablet 40 mg PO .COMPLEX 06/08/19 [History Confirmed 08/11/19] lisinopril 10 mg tablet 10 mg PO DAILY 06/08/19 [History Confirmed 08/11/19] metformin 500 mg tablet 1,000 mg PO BID tab 06/08/19 [History Confirmed 08/11/19] metoprolol tartrate 100 mg tablet 100 mg PO BID 06/08/19 [History Confirmed 08/11/19] nitroglycerin 0.4 mg sublingual tablet 0.4 mg SUBLINGUAL Q5-15M PRN 06/08/19 [History Confirmed 08/11/19] potassium chloride ER 10 mEq tablet,extended release 10 meq PO DAILY 06/08/19 [History Confirmed 08/11/19] promethazine 25 mg tablet 25 mg PO Q8H PRN tab 06/08/19 [History Confirmed 08/11/19] triamcinolone acetonide 0.1 % topical cream 1 applic TOPICAL BID PRN 06/08/19 [History Confirmed 08/11/19] allopurinol 100 mg tablet 100 mg PO DAILY 08/11/19 [History Confirmed 08/11/19] buspirone 10 mg tablet 10 mg PO BID 08/11/19 [History Confirmed 08/11/19] diltiazem CD 120 mg capsule,extended release 24 hr 120 mg PO DAILY #30 cap 08/11/19 [Rx Confirmed 08/11/19] insulin glargine (U-100) 100 unit/mL (3 mL) subcutaneous pen 44 unit SC BID ml 08/11/19 [History Confirmed 08/11/19] [facility] Medical History Presence of stent in coronary artery (Chronic ~12/07/03) Mixed hyperlipidemia (Chronic) Atherosclerotic heart disease of [place] coronary artery without angina pectoris (Chronic) Essential hypertension (Chronic) Paroxysmal A-fib (Chronic) Diabetes mellitus type 2 in obese (Chronic) Hypothyroidism (Chronic) GERD (gastroesophageal reflux disease) (Chronic) COPD (chronic obstructive pulmonary disease) (Chronic) Chronic respiratory insufficiency (Chronic) PARESH (obstructive sleep apnea) (Chronic) DDD (degenerative disc disease) (Acute) History of DVT (deep vein thrombosis) (Acute) Pulmonary embolism (Acute) History of cervical cancer (Chronic) Lung nodule (Chronic) RLS (restless legs syndrome) (Chronic) Surgical History Presence of coronary angioplasty implant and graft (Chronic ~12/07/03) History of cholecystectomy (Resolved) History of hernia repair (Resolved) History of knee surgery (Resolved) History of left heart catheterization (LHC) (Resolved ~12/23/17) History of nasal surgery (Resolved) History of surgery on wrist (Resolved) History of total abdominal hysterectomy (Resolved) History of tubal ligation (Resolved) Family History Mother CAD (coronary artery disease) Father CAD (coronary artery disease) Brother CAD (coronary artery disease) Sister Hypertension Sister Diabetes Sister Heart disease Social History (Updated 08/11/19 @ 12:27 by Jose Armando Ramsey MD) Smoking Status: Former smoker alcohol intake: never substance use type: does not use caffeine: Yes Type: coffee Number of servings: 1 ROS Const Const: Positive for fatigue (increased); negative for weakness, frequent falls, excessive sweating, weight gain or weight loss Eyes Eyes: Negative for transient loss of vision, blurry vision or change in vision ENT ENT: Positive for dizziness (occasional;HX vertigo) and balance problems (ambulates with a walker) Cardio Chest Pain: Yes (some) Character: other (heaviness) Onset: at rest, exercise Location: mid sternal, other (across chest) Duration: minutes Relieving: rest, other (nitro) Palpitations: Yes (occasional) feels like its: fast Edema: Bilateral (pedals) Muscle aches with walking: Left (calf) Resp Respiratory: Positive for SOB with activity (increased), SOB at rest (occasional) and Cough (productive, grayish white) Additional Details: Wears continuous oxygen @ 3L NC GI GI: Negative vomiting or vomiting blood/hematemesis : Negative for hematuria Musc Musc: Positive for balance problems (ambulates with a walker); negative for muscle aches/ myalgia, muscle weakness or joint pain Skin Skin: Negative non-healing lesions or rash Neuro Neuro: Positive for dizziness (occasional;HX vertigo) and vertigo (vertigo); negative for lightheadedness, orthostatic symptoms, frequent falls, weakness or blurry vision Singh Hematologic/Lymphatic: Negative for easy bleeding Endo Endo: Positive for fatigue (increased); negative for excessive sweating Psych Psych: Negative for anxiety or depression Allergy Allergy/Immunology: Negative for hives, Negative for rash Cardiology Exam Const Appearance: cooperative, comfortable, no acute distress, well developed and well groomed Nutritional Appearance: obese Orientation: alert, awake and oriented x3 Head Head: normal to inspection, normocephalic and atraumatic Ears: hearing grossly normal bilaterally Nose: external nose normal Face and Sinus: face symmetric Mouth: oral mucosae normal Eyes Eyelids: eyelids normal Conjunctivae: conjunctivae normal Pupils: PERRL EOM: EOM intact bilaterally Neck Neck: normal visual inspection and full ROM Carotids: normal carotid upstroke Chest Chest inspection: normal inspection of the chest, symmetric chest movement and normal respiratory effort Auscultation: Bilateral: Clear to Auscultation Cardio Palpation: normal PMI Rhythm: irregular rhythm Heart sounds: S1 normal and S2 normal GI GI: normal to inspection, soft, bowel sounds present and obese Neuro General: alert, awake, oriented x3 and moves all extremities Skin Skin: no rashes or lesions noted Extremities Pulses: Normal: Right Radial Pulse, Left Radial Pulse Lower Extremity Edema: None: Bilateral Psych Psychological: normal affect Assessment & Plan 1. Atherosclerosis of [place] coronary artery of [place] heart without angina pectoris I25.10 Plan At the present time she will undergo reevaluation, based on her history of CAD, PCI, etc. and her chest pressure/heaviness, with a follow-up pharmacologic stress nuclear imaging study. Depending upon the findings she may or may not need adjustment of medical therapy and/or repeat diagnostic cardiac catheterization. Orders Orders: 12 Lead EKG performed by [facility] Today Nuclear Stress Test - Chemical Today 2. Presence of stent in coronary artery Z95.5 PCI/Stent to the prox 1st Diag branch 12/07/2003 Plan She does have a history of PCI as noted above. Again she will continue her medical management and follow-up. Orders Orders: 12 Lead EKG performed by [facility]MS Today Nuclear Stress Test - Chemical Today 3. Paroxysmal atrial fibrillation I48.0 Plan She will adjust her medication. She will discontinue her metoprolol tartrate 12.5 mg twice daily. She will continue her metoprolol tartrate 100 mg p.o. twice daily. She will add back diltiazem CD at 120 mg daily. She will continue her anticoagulant therapy. She does state that she was offered DC cardioversion in the past. She states she was scared they would not bring me back. Though she has declined such procedures in the past. Orders Orders: 12 Lead EKG performed by [facility]MS Today 4. Mixed hyperlipidemia E78.2 Plan She will value and care medical BS deemed. Orders Orders: Nuclear Stress Test - Chemical Today 5. Essential hypertension I10 Plan Her blood pressure is to be reasonably well controlled. She will continue medical management. Orders Orders: 12 Lead EKG performed by [facility]MS Today Nuclear Stress Test - Chemical Today 6. Precordial pain R07.2 Plan She will undergo further evaluation care as described above. Plan Detail Other Medications New: diltiazem CD (Cardizem CD) 120 mg PO DAILY 30 caps 6RF Discontinued: metoprolol tartrate Take with metoprolol tartrate 100mg = 112.5mg BID Discontinued Reason: Order Changed 12.5 mg PO BID Additional Comments She will be scheduled for future outpatient cardiovascular follow-up as well. Thank you for allowing me to participate in the care of your patient. Please don't hesitate to call if any issues arise. This note was generated using a voice recognition system and there may be incorrect words, spelling or punctuation that were not noted when reviewing the office note prior to saving. Follow Up 3 Months (PFM/MM/JR) Coding Level of Care Code Off vis,est,level 4 Diagnoses Atherosclerosis of [place] coronary artery of [place] heart without angina pectoris I25.10 ??[place] vs. transplanted heart: [place] heart Presence of stent in coronary artery Z95.5 Paroxysmal atrial fibrillation I48.0 Mixed hyperlipidemia E78.2 Essential hypertension I10 Precordial pain R07.2 ??Chest pain type: precordial pain Coding Level of Care Code Off vis,est,level 4 Diagnoses Atherosclerosis of [place] coronary artery of [place] heart without angina pectoris I25.10 ??[place] vs. transplanted heart: [place] heart Presence of stent in coronary artery Z95.5 Paroxysmal atrial fibrillation I48.0 Mixed hyperlipidemia E78.2 Essential hypertension I10 Precordial pain R07.2 ??Chest pain type: precordial pain Supplemental Info Supplemental Information Stress Test Report: 12/17/17 Pharmacologic myocardial perfusion stress test. 62-year-old lady with a history of chest discomfort for preop evaluation. Medications Lipitor Cardizem Lopressor Glucophage Cymbalta. Resting EKG demonstrates atrial fibrillation with a rate of 114 bpm resting blood pressure is 118/70 mmHg. 0.4 mg of regadenoson was infused per usual protocol followed by Intravenous saline flush injection continuous EKG monitoring was performed the patient maintained atrial for ablation throughout the recording the maximum heart rate attained was 131 bpm which was 82% of maximum predicted heart rate the maximum workload attained was 1 metabolic equivalent. At rest there were no ST or T-wave changes noted to suggest abnormal flow reserve nonspecific ST-T wave changes only were noted at peak infusion nonspecific ST-T wave changes were noted. Resting blood pressure is 118/70 mmHg. Myocardial perfusion protocol. 11.8 mCi of technetium 99m sestamibi was injected at rest. 0.4 mg of regadenoson was infused per usual protocol. At peak infusion 34.2 mCi of technetium 99m sestamibi was injected. Stress images were obtained stress and rest images were reconstructed and compared in the short axis vertical long and horizontal long axis. Gated images were also obtained. Perfusion SPECT analysis: Review of the stress images demonstrate a normal cardiac silhouette size. The septum and anterior wall and inferior wu appear to have normal perfusion. The mid to basal lateral wall has a moderate size perfusion defect. This is present on the stress images. The resting images demonstrate a fixed defect in the basal lateral wall but the mid lateral wall improves suggesting a moderate amount of ischemia in this area. Gated SPECT analysis: The gated ejection fraction is 59%. Conclusion: Abnormal pharmacologic myocardial perfusion stress test with evidence of mid lateral ischemia. Small basal lateral fixed defect present Preserved ejection fraction Labs LDL Cholesterol 42 mg/dL (0-130) 02/08/18 HDL Cholesterol 59 mg/dL (40-) 02/08/18 Triglycerides 206 mg/dL (-199) H 02/08/18 VLDL Cholesterol 41 mg/dL (5-40) H 02/08/18 Diagnostics Electrocardiogram 08/11/19 Echocardiogram 06/20/15 Stress Test Nuclear Medicine 12/17/17 Stress Test 12/17/17 Cardiac Catheterization 12/23/17 Chest X-Ray 12/01/18 Pulmonary 02/11/18 08/11/19 1227 <Electronically signed by Jose Armando roque MD> Date _ Jose Armando Ramsey MD I have re-examined the patient. There are no clinical changes since date of exam.
[2019-09-23 09:52] VITALS: BMI 36.9
[2019-09-23 11:16] LABS: Hematocrit 37.1 % (37-47); Hemoglobin 11.5 g/dL (12.0-15.0); Mean Corpuscular Hgb 29.9 pg (27.0-32.0); Mean Corpuscular Volume 96.6 fL (81-99); Mean Platelet Vol. 10.5 fl (6.2-12.0); Platelet Count 213 K/mm3 (150-450); RBC Distribution Width CV 13.8 % (11.6-14.6); RBC Distribution Width SD 48.2 fl (35.1-43.9); Red Blood Count 3.84 M/mm3 (4.2-5.4); White Blood Count 7.2 K/mm3 (4.4-11.0)
[2019-09-23 11:33] LABS: International Normalized Ratio 1.1; Prothrombin Time (Protime)PT. 14.4 SECONDS (11.7-14.9)
[2019-09-23 11:34] LABS: Partial Thromboplast Time 29.9 Seconds (24.1-36.2)
[2019-09-23 11:41] LABS: Anion Gap 5 (5-15); BUN 21 mg/dL (7-18); BUN/Creat Ratio 19.3 RATIO (10-20); Calcium,Total 8.8 mg/dL (8.5-10.1); Chloride 109 mmol/L (98-107); Creatinine, Serum 1.09 mg/dL (0.55-1.02); EST Glomerular Filtration Rate 54 mL/min (>60); Est Glom Filt Rate - Afr Amer 65 mL/min (>60); Glucose 136 mg/dL (74-106); Potassium 3.8 mmol/L (3.5-5.1); Sodium Level 145 mmol/L (136-145)
[2019-09-27 11:03] VITALS: BMI 36.9
--- NOTE | 2019-09-28 17:20 | CL.D_ITS ---
Patient Name: RUI PANDA Study Date: 09/28/2019 Performing: Jose Armando Ramsey MD Ht: 62 inches 157 cm : 1955 Wt: 203.1 lbs 92 kg Age: 64 Gender: female BSA: 1.92 PROCEDURE(S) PERFORMED [id number] CLINICAL PROFILE AND INDICATIONS Indications: Suspected CAD Heart Failure: None Stress/Imaging Date: 09/03/2019 Angina Classification Anginal Classification w/in 2 Weeks: CCS III CAD Presentations: Other: chest pain /angina pectoris CONCLUSIONS Elevated Left Ventricular End Diastolic Pressure (mild) Normal LV size, wall motion,and systolic function LVEF: by LV gram 65 % Craig Multivessel CAD RECOMMENDATIONS Risk factor modification Medical therapy DESCRIPTION OF PROCEDURE The patient arrived to the procedure lab. The risks and benefits of the procedure as well as a full d escription of our services here and current unavailability of surgical backup were fully explained to the patient and/or their significant other prior to the catheterization. The Timeout was completed, verifying the correct patient and procedure. The patient's procedural site was prepped and draped in the usual fashion. Local anesthetic was given subcutaneously to right radial region with Lidocaine 2% . Using a modified Seldinger technique, arterial access was obtained via the right radial artery, a 4 Fr sheath was inserted Right Coronary Artery selective angiography was then performed in multiple vi ews using a 5 Fr. 4.0 [place] catheter. Left Coronary Artery selective angiography was performed in mul tiple views using a 5 Fr. 4.0 [place] catheter. Left Ventriculography was performed in DEL CID projection u sing a 5 Fr. Pigtail catheter. LV to AO pullback pressures were then recorded.The arterial sheath was pulled and a TR Band was applied for hemostasis CORONARY ANGIOGRAPHY DOMINANCE: Right Dominant LEFT HEART ASSESSMENT Left Ventricular Ejection Fraction: by LV Gram 65 % LV wall motion not assessed Elevated Left Ventricular End Diastolic Pressure LVEDP: 13 mmHg LEFT MAIN: Mild luminal irregularities LEFT ANTERIOR DESCENDING ARTERY: PROX LAD: ecctatic / aneuyrsmal appearing MID LAD: s/p DX1: 25 % Stenosis, 25 - 50 % Stenosis DIAGONAL 1: Proximal - Previously placed stent is patent CIRCUMFLEX ARTERY: OM 1: Proximal - is occluded and fills late, faintly, and partially from left to left and right to le ft collaterals RIGHT CORONARY ARTERY: Mild luminal irregularities PROX RCA: diffuse: eccentric: 25 % Stenosis RT PDA: Proximal - diffuse: eccentric: 50 % Stenosis, Mid - diffuse: eccentric: 50 % Stenosis RIGHT AV SEGMENT: distal: 25 % Stenosis AORTIC ROOT: Angiographically normal COMPLICATIONS No Complications PROCEDURE MEDICATIONS Fentanyl 50 mcg IV Versed 1 mg IV Oxygen: 3 L/min via nasal cannula Oxygen: 3 L/min via nasal cannula Tylenol 650 mg PO 09/28/2019 11:37:17 SUMMARY OF HEMODYNAMIC DATA Time AIR REST ECG 09:38:27 AO 125/67 (92) SA 10:32:27 LV 140/-3, 10 10:45:53 LV 147/-2, 13 10:46:00 LV 140/-1, 15 10:46:46 LVp 139/1, 17 10:46:52 AOp 154/70 (105) 10:46:57 AO 155/74 (105) 10:48:38 Signed By Jose Armando Ramsey MD On 09/28/2019 17:19:09 Jose Armando Ramsey MD
== END 2019-09-28 12:38 | disposition home or self-care (01) ==
LOC: CLSP 09:01
PROVIDERS: Family Provider Family Medicine; PCP Family Medicine; Referring Provider Internal Medicine Cardiovascular Disease; Visit Provider Internal Medicine Cardiovascular Disease
DX: I25.119 Atherosclerotic heart disease of native coronary artery with unspecified angina pectoris (principal); I13.0 Hypertensive heart and chronic kidney disease with heart failure and stage 1 through stage 4 chronic kidney disease, or unspecified chronic kidney disease; I50.32 Chronic diastolic (congestive) heart failure; E11.22 Type 2 diabetes mellitus with diabetic chronic kidney disease; N18.9 Chronic kidney disease, unspecified; I48.0 Paroxysmal atrial fibrillation; J44.9 Chronic obstructive pulmonary disease, unspecified; E03.9 Hypothyroidism, unspecified; E78.2 Mixed hyperlipidemia; G47.33 Obstructive sleep apnea (adult) (pediatric); E66.9 Obesity, unspecified; R94.39 Abnormal result of other cardiovascular function study; Z91.040 Latex allergy status; Z88.8 Allergy status to other drugs, medicaments and biological substances; Z88.1 Allergy status to other antibiotic agents; Z79.82 Long term (current) use of aspirin; Z79.4 Long term (current) use of insulin; Z79.01 Long term (current) use of anticoagulants; Z79.899 Other long term (current) drug therapy; Z86.718 Personal history of other venous thrombosis and embolism; Z86.711 Personal history of pulmonary embolism; Z95.5 Presence of coronary angioplasty implant and graft; Z87.891 Personal history of nicotine dependence
CPT/HCPCS: 36415; 80048; 85027; 85610; 85730; 93458; 99152; 99153; J7040; Q9967; C1769; C1894

== ENCOUNTER → 2019-09-28 09:00 | Outpatient (CLI) | payer MEDICARE, MEDICAID, SELFPAY ==
[2020-09-25 11:48] VITALS: BMI 37.1
== END ==
PROVIDERS: PCP Family Medicine; Referring Provider Family Medicine; Visit Provider Surgery
DX: Z20.828 Contact with and (suspected) exposure to other viral communicable diseases (principal)
CPT/HCPCS: 87426; C9803

== ENCOUNTER → 2019-11-19 14:00 | Outpatient (CLI) | payer MEDICARE, SELFPAY ==
[2019-09-27 11:03] VITALS: BMI 36.9
--- NOTE | 2019-11-19 14:05 | VDLE_ITS ---
Reason For Study: left leg pain RIGHT LEFT CFV is compressible, spontaneous, phasic, GSV is normal. competent and demonstrates normal CFV is compressible, spontaneous, phasic, augmentation. competent, and demonstrates normal Procedure augmentation. Exam performed in department. FV is compressible, spontaneous, phasic, The exam was diagnostic. competent and demonstrates normal A preliminary report was called and/or faxed augmentation. to Reyna Hennessy KITCH[employer] OPERATOR-[employer]. POP V is compressible, spontaneous, phasic, competent and demonstrates normal augmentation. T/P Trunk is compressible. PTV is compressible. LT PerV is compressible. Interpretation Summary There is no evidence of left lower extremity deep vein thrombosis. Left great saphenous vein appears patent and compressible segmentally. Patent, compressible right common femoral vein Ordering Physician: Reyna Hennessy Performed By: Marcelo Kirkland RVT
== END ==
PROVIDERS: PCP Family Medicine; Referring Provider Registered Nurse; Visit Provider Registered Nurse
DX: M79.605 Pain in left leg (principal)
CPT/HCPCS: 93971

== ENCOUNTER 2020-07-28 19:40 | Observation (INO) | payer MEDICARE, MEDICAID, SELFPAY ==
[2020-07-04 09:58] VITALS: BMI 36.2
[2020-07-28 19:41] VITALS: BP 132/107; PULSE 116; RESP 18; TEMP 36.9; O2SAT 99; BMI 38.0
--- NOTE | 2020-07-28 19:53 | CT_ITS ---
STUDY: CT ABDOMEN AND PELVIS WITHOUT CONTRAST REASON FOR EXAM: Female, 65 years old. Pain vomiting diarrhea elevated blood pressure asthma RADIATION DOSAGE (If Supplied By Facility): CTDIvol = ( 18.50 ) mGy, DLP = ( 1017.10 ) mGycm TECHNIQUE: Transaxial images were obtained from the dome of the diaphragm to the symphysis pubis without oral contrast, and without intravenous contrast. Sagittal and coronal images were reconstructed. Individualized dose optimization techniques were used for this CT. COMPARISON: 30 August 2019 FINDINGS: Lung bases are clear. There are prior myocardial infarctions with mild enlargement of the left ventricle. Left atrium is severely enlarged. Right atrium is severely enlarged. Right ventricle is normal. Corneae arteries are severely diseased. There are no pleural effusions or pulmonary edema. Normal liver. Gallbladder is removed. Normal spleen. Normal pancreas. Normal bilateral adrenal glands. Normal right kidney. Normal left kidney. There is a 1 cm benign left renal exophytic cyst, stable since prior and not requiring any further imaging attention. Normal visualized stomach. Normal small intestine. Normal colon. The appendix is visualized and appears normal. Normal abdominal aorta. Normal inferior vena cava. Normal retroperitoneum. Normal urinary bladder. There is hysterectomy and bilateral oophorectomy. There is prior ventral abdominal hernia repair with separation of the fascial layers and penetration of omental mesenteric fat between the outer and inner layers. Interfascial opening is wide and the fat is not inflamed. There is a focal fascial defect in the right periumbilical fascia. . Normal osseous structures. Appearance is stable since prior. CT/Abdomen/Pelvis without Cont IMPRESSION: 1. Stable exam. 2. No acute abdominal findings. 3. Severe coronary artery disease and prior left ventricular infarcts. Biatrial enlargement. Electronically Signed: Jaja Moreau, at 21:38 EST Tel , Service support ,
[2020-07-28 20:20] VITALS: BP 146/104; PULSE 104; RESP 22; O2SAT 99
[2020-07-28] MEDS: 0.9% Normal Saline 1,000 ML 1000 ML IV (20:20)
[2020-07-28] MEDS: proMETHazine 25 MG/ML Syringe 12.5 MG IV (20:20)
[2020-07-28 20:35] LABS: Absolute Lymphocyte Count 0.75 X10^3/uL (0.83-4.51); Basophil# 0.03 X10^3/uL; Basophil% 0.3 % (0-1); Eosinophil# 0.27 X10^3/uL; Eosinophils% 3.1 % (0-5); Hematocrit 40.7 % (37-47); Hemoglobin 12.5 g/dL (12.0-15.0); Lymphocyte # 0.75 X10^3/ul (4.0); Lymphocyte % 8.7 % (19-41); Mean Corp Hgb Conc 30.7 g/dL (32-36); Mean Corpuscular Hgb 29.5 pg (27.0-32.0); Mean Platelet Vol. 10.3 fl (6.2-12.0); Monocyte# 0.53 X10^3/uL; Monocyte% 6.2 % (0-10); NRBC Flagged by Analyzer 0 % (0-5); Neutrophil # 6.97 X10^3/uL (2.7-7.7); Neutrophil % 81.2 % (47-70); Platelet Count 184 K/mm3 (150-450); RBC Distribution Width CV 14.6 % (11.6-14.6); RBC Distribution Width SD 50.4 fl (35.1-43.9); Red Blood Count 4.24 M/mm3 (4.2-5.4); White Blood Count 8.6 K/mm3 (4.4-11.0)
[2020-07-28 21:06] LABS: ALB/GLOB Ratio 0.7 RATIO (0.9-2.4); AST(SGOT) 20 U/L (15-37); Alanine Aminotransfer ALT/SGPT 19 U/L (13-56); Albumin, Serum 3.3 g/dL (3.2-5.0); Alkaline Phosphatase 60 U/L (45-117); Anion Gap 6 (5-15); BUN 26 mg/dL (7-18); BUN/Creat Ratio 20.5 RATIO (10-20); Calcium,Total 8.8 mg/dL (8.5-10.1); Chloride 109 mmol/L (98-107); Creatinine, Serum 1.27 mg/dL (0.55-1.02); EST Glomerular Filtration Rate 45 mL/min (>60); Est Glom Filt Rate - Afr Amer 54 mL/min (>60); Estimated Creatinine Clearance 34.93 ml/min; Globulin 4.5 g/dL (2.2-4.2); Glucose 245 mg/dL (74-106); Lipase 118 U/L (73-393); Potassium 4.8 mmol/L (3.5-5.1); Protein, Total 7.8 g/dL (6.4-8.2); Sodium Level 142 mmol/L (136-145)
[2020-07-28 21:12] LABS: Lactic Acid 3.3 mmol/L (0.4-1.9)
--- NOTE | 2020-07-28 21:14 | ED.RN ---
Dr Rodriguez notified of lactic 3.3
[2020-07-28 22:13] VITALS: BP 140/90; PULSE 106; RESP 16; O2SAT 99
[2020-07-28] MEDS: 0.9% Normal Saline 1,000 ML 999 ML IV (22:14)
--- NOTE | 2020-07-28 22:15 | ED.VIS.GI ---
History of Present Illness Chief Complaint: Nausea/Vomiting Narrative: Patient presenting for evaluation secondary to nausea vomiting abdominal pain and diarrhea. Patient states that she chronically has issues with this. Patient apparently has been dealing with this for months, but worse within the last couple of days. She denies any fevers. Her abdominal pain is diffuse nonlocalizing. No exacerbating relieving factors. She reports that her emesis is nonbloody nonbilious. She does have a history of multiple abdominal surgeries in the past. No history of bowel obstructions. Review of systems otherwise negative. Past Medical History - Allergies and Home Meds Allergies/Adverse Reactions: Allergies ciprofloxacin [From Cipro] Allergy (Verified 07/04/20 09:54) Hives latex Allergy (Verified 07/04/20 09:54) matos me niacin [From Niaspan Extended-Release] Allergy (Verified 07/04/20 09:54) Hives ondansetron [From Zofran] Allergy (Verified 07/04/20 09:54) Unknown Xanthines Allergy (Verified 07/04/20 09:54) Unknown orphenadrine citrate [From Norgesic] Adverse Reaction (Verified 07/04/20 09:54) groggy medical tape Adverse Reaction (Uncoded 08/11/19 10:11) blisters Primary Care Physician: Bhupendra Oliveira MD [Primary Care Provider] - Prior records reviewed: Yes Past Medical History: - - Hypertension, A. fib, diabetes, COPD Surgical History: angioplasty, cholecystectomy, herniorrhaphy, hysterectomy, - - tubal ligation. Lives: Spouse/ Significant Other Smoking Status: Former smoker Alcohol: None Drugs: None - Family History Sibling Family History: Family History (Last Reviewed 07/04/20 @ 10:31 by Uma MORA, PA) Mother CAD (coronary artery disease) Father CAD (coronary artery disease) Brother CAD (coronary artery disease) Sister Hypertension Sister Diabetes Sister Heart disease Family History: Reports: COPD - in sister. Maternal Family History: Family History (Last Reviewed 07/04/20 @ 10:31 by Uma MORA, PA) Mother CAD (coronary artery disease) Father CAD (coronary artery disease) Brother CAD (coronary artery disease) Sister Hypertension Sister Diabetes Sister Heart disease Family History: Reports: No pertinent history Paternal Family History: Family History (Last Reviewed 07/04/20 @ 10:31 by Uma MORA, PA) Mother CAD (coronary artery disease) Father CAD (coronary artery disease) Brother CAD (coronary artery disease) Sister Hypertension Sister Diabetes Sister Heart disease Family History: Reports: Heart Disease, Stroke - age 62 Offspring Family History: Family History (Last Reviewed 07/04/20 @ 10:31 by Uma MORA, PA) Mother CAD (coronary artery disease) Father CAD (coronary artery disease) Brother CAD (coronary artery disease) Sister Hypertension Sister Diabetes Sister Heart disease Family History: Reports: No pertinent history - 5 children, 32 grand children and great grandchildren Review of Systems All systems negative except as indicated General: Reports: Malaise Eyes: Denies: Visual changes - bilaterally, Diplopia ENT: Denies: Rhinorrhea, Sore throat Cardiovascular: Denies: Chest pain, Palpitations Respiratory: Denies: Dyspnea, Cough, Dyspnea on exertion Gastrointestinal: Reports: Abdominal pain, Nausea, Vomiting, Diarrhea Genitourinary: Denies: Dysuria, Hematuria, Frequency Musculoskeletal: Denies: Back pain, Extremity Pain Skin: Denies: Rash, Wounds Neurological: Denies: Headache, Weakness, Numbness Physical Exam Vital Signs/Narrative: Vital Signs Temp Pulse Resp BP Pulse Ox 07/28/20 22:13 106 H 16 140/90 H 99 07/28/20 20:20 104 H 22 H 146/104 H 99 07/28/20 19:41 98.5 F 116 H 18 132/107 H 99 Inital Vital Signs reviewed: Yes General: Well nourished, Well developed, No Acute Distress Head: Normocephalic, Atraumatic Eyes: Perrl, EOMI ENT: Moist mucous membranes, No rhinorrhea Neck: Supple, Nontender Cardiovascular: No murmurs, Irregular, Tachycardia Respiratory: No distress, CTA bilaterally, Chest nontender Abdomen: Soft, Tender - Large midline abdominal scar. Diffuse nonlocalizing tenderness no guarding or rebound noted. Mild distention with no tympany. Back: Nontender, Normal Inspection Extremities: Nontender, Edema Skin: Normal color, No rash Neurological: Alert, Oriented x3, Cranial nerves II-XII grossly intact, Normal Strength, Normal Sensation Psychological: Normal affect, Normal Mood Diagnostic/Tx/Re-eval Clinical Impression(s) from Imaging Studies Abdomen/Pelvis CT 07/28/20 19:53 IMPRESSION: 1. Stable exam. 2. No acute abdominal findings. 3. Severe coronary artery disease and prior left ventricular infarcts. Biatrial enlargement. Electronically Signed: Jaja Moreau, at 21:38 EST Tel , Service support , Laboratory Data 07/28/20 07/28/20 07/28/20 20:05 20:05 20:05 WBC 8.6 RBC 4.24 Hgb 12.5 Hct 40.7 MCV 96.0 MCH 29.5 MCHC 30.7 L RDW Std Deviation 50.4 H RDW Coeff of Aubrey 14.6 Plt Count 184 MPV 10.3 Immature Gran % (Auto) 0.500 Neut % (Auto) 81.2 H Lymph % (Auto) 8.7 L [place] % (Auto) 6.2 Eos % (Auto) 3.1 Baso % (Auto) 0.3 Absolute Neuts (auto) 7.0 Absolute Lymphs (auto) 0.75 L Nucleated RBC % 0 Sodium 142 Potassium 4.8 Chloride 109 H Carbon Dioxide 27.0 Anion Gap 6 BUN 26 H Creatinine 1.27 H Estim Creat Clear Calc 34.93 Est GFR (MDRD) Af Amer 54 L Est GFR (MDRD) Non-Af 45 L BUN/Creatinine Ratio 20.5 H Glucose 245 H Lactic Acid 3.3 H* Calcium 8.8 Total Bilirubin 0.50 AST 20 ALT 19 Alkaline Phosphatase 60 Total Protein 7.8 Albumin 3.3 Globulin 4.5 H Albumin/Globulin Ratio 0.7 L Lipase 118 - Medical Decision Making Patient presented secondary to abdominal pain nausea and vomiting. She was tachycardic on arrival, she was given a fluid bolus, Phenergan, and laboratory work-up was obtained. CT abdomen and pelvis shows no evidence of acute intra-abdominal pathology. CBC was unremarkable, chemistry does not show significant anion gap or acidosis but patient's lactic acid was elevated at 3.1. Repeat lactic was ordered, patient on repeat evaluation has improvement of her heart rate and significant symptomatic improvement. Patient has had significant improvements, and has had an otherwise negative work-up except for her elevated lactic acid. Repeat lactic acid was ordered after the patient's fluid resuscitation. This point I feel that given her nonsurgical abdomen, the fact that she has not been hypotensive, and the fact that she improved with treatment that she would be safe to go home should her lactic acid cleared. Patient will be turned over to the oncoming physician will follow up on this test and disposition the patient. ED Disposition - Plan for ED Patient: Diagnosis: Nausea and vomiting, Lactic acidosis Referrals: Bhupendra Oliveira MD [Primary Care Provider] -
[2020-07-28 23:00] LABS: Lactic Acid 3.1 mmol/L (0.4-1.9)
--- NOTE | 2020-07-28 23:24 | HP.PCM_ITS ---
Problem List (1) Gastroenteritis Status: Acute (2) Lactic acidosis Status: Acute (3) Presence of stent in coronary artery Status: Chronic Comment: PCI/Stent to the prox 1st Diag branch 12/07/2003 (4) Mixed hyperlipidemia Status: Chronic (5) Atherosclerotic heart disease of [place] coronary artery without angina pectoris Status: Chronic (6) Essential hypertension Status: Chronic (7) Paroxysmal A-fib Status: Chronic (8) Diabetes mellitus type 2 in obese Status: Chronic (9) GERD (gastroesophageal reflux disease) Status: Chronic Qualifiers: Esophagitis presence: esophagitis presence not specified Qualified Code(s): K21.9 - Gastro-esophageal reflux disease without esophagitis (10) COPD (chronic obstructive pulmonary disease) Status: Chronic Qualifiers: COPD type: unspecified COPD Qualified Code(s): J44.9 - Chronic obstructive pulmonary disease, unspecified (11) Chronic respiratory insufficiency Status: Chronic Comment: On home oxygen at night (12) PARESH (obstructive sleep apnea) Status: Chronic Comment: non-complaint with CPAP History of Present Illness Date of Admission: 07/28/20 Chief Complaint: N/V/D The patient is a 65 y/o F w/ PMHx: Chronic COPD w/ chronic hypoxic respiratory failure, PAF, Chronic Diastolic CHF, Hx VTE, , Diabetes mellitus type II, Hypertension, Hyperlipidemia, History of Tobacco use, CAD s/p PCI, GERD, Hypothyroidism, PARESH, Obesity, CKD stage III, chronic ongoing issues with nausea and intermittent loose stools who presents to the [facility] ED on 07/28/20 with history of increased above baseline nausea with associated emesis in addition to abdominal cramping preceding bowel movements noted to be more frequently loose over the last 48 hours prompting ED presentation secondary to fatigue, malaise and poor oral intake. In the ED patient administered aggressive normal saline secondary to noted lactic acidosis felt secondary to her dehydration and with GI losses however repeat was not significantly improved therefore ED physician discussion with hospitalist for admission. Patient denies any recent additional symptoms including fever, chills, alteration to sense of yeast or smell, headache, cough, dyspnea, body aches. Work-up in the ED included T 98.5, heart rate 116, BP 132/107, respiratory rate 22, 99% on 3 L nasal cannula, CBC with WBC 8.6, hemoglobin 12.5, platelet 184 with lymphopenia, CMP with chloride 109, BUN/creatinine 26/1.27, glucose 245, lactic acid initially 3.3 with repeat 3.1, lipase 118, CT abdomen and pelvis with no acute intra-abdominal findings with evidence of severe coronary artery disease and prior left ventricular infarcts with biatrial enlargement. In the ED patient administered normal saline and Phenergan. Upon evaluation in the ED patient noted feeling somewhat improved following ED medications. Patient with no diarrheal episodes while in the emergency room. Past Medical History Past Medical History (Chronic Problems): Chronic Problems (Last Reviewed 07/04/20 @ 10:31 by Uma MORA, PA) Presence of stent in coronary artery (Chronic ~12/07/03) PCI/Stent to the prox 1st Diag branch 12/07/2003 Mixed hyperlipidemia (Chronic) Atherosclerotic heart disease of [place] coronary artery without angina pectoris (Chronic) Essential hypertension (Chronic) Paroxysmal A-fib (Chronic) Diabetes mellitus type 2 in obese (Chronic) Hypothyroidism (Chronic) GERD (gastroesophageal reflux disease) (Chronic) COPD (chronic obstructive pulmonary disease) (Chronic) Chronic respiratory insufficiency (Chronic) On home oxygen at night PARESH (obstructive sleep apnea) (Chronic) non-complaint with CPAP Medical History: Medical History (Last Reviewed 07/04/20 @ 10:31 by Uma MORA, PA) Presence of stent in coronary artery (Chronic) Onset Date: ~12/07/03 Z95.5 PCI/Stent to the prox 1st Diag branch 12/07/2003 Mixed hyperlipidemia (Chronic) E78.2 Atherosclerotic heart disease of [place] coronary artery without angina pectoris (Chronic) I25.10 Essential hypertension (Chronic) I10 Paroxysmal A-fib (Chronic) I48.0 Diabetes mellitus type 2 in obese (Chronic) E11.9, E66.9 Hypothyroidism (Chronic) E03.9 GERD (gastroesophageal reflux disease) (Chronic) K21.9 COPD (chronic obstructive pulmonary disease) (Chronic) J44.9 Chronic respiratory insufficiency (Chronic) R06.89 On home oxygen at night PARESH (obstructive sleep apnea) (Chronic) G47.33 non-complaint with CPAP DDD (degenerative disc disease) Gastroparesis K31.84 History of DVT (deep vein thrombosis) Z86.718 Pulmonary embolism I26.99 History of cervical cancer Z85.41 Lung nodule R91.1 RLS (restless legs syndrome) G25.81 Allergies ciprofloxacin [From Cipro] Allergy (Verified 07/04/20 09:54) Hives latex Allergy (Verified 07/04/20 09:54) matos me niacin [From Niaspan Extended-Release] Allergy (Verified 07/04/20 09:54) Hives ondansetron [From Zofran] Allergy (Verified 07/04/20 09:54) Unknown Xanthines Allergy (Verified 07/04/20 09:54) Unknown orphenadrine citrate [From Norgesic] Adverse Reaction (Verified 07/04/20 09:54) groggy medical tape Adverse Reaction (Uncoded 08/11/19 10:11) blisters Home Medications: Ambulatory Orders Medication Instructions Recorded Atorvastatin Calcium [Lipitor] 40 mg PO DAILY 02/03/18 Duloxetine Hcl [Cymbalta] 60 mg PO DAILY 02/03/18 Insulin Lispro [Humalog KwikPen] 20 unit SQ LUNCH 02/03/18 Insulin Lispro [Humalog KwikPen] 24 unit SQ DINNER 02/03/18 Insulin Lispro [Humalog] 14 unit SQ BREAKFAST 02/03/18 Levothyroxine [Synthroid] 100 mcg PO DAILY 02/03/18 Apixaban [Eliquis] 2.5 mg PO BID 05/17/18 Ascorbic Acid [Vitamin C] 500 mg PO DAILY@0800 05/17/18 Albuterol IH (ProAir) [Proair Hfa] 2 puff INHALATION Q4H PRN PRN 08/05/18 Aspirin E.C. [Ecotrin] 81 mg PO DAILY@0800 09/02/18 docusate sodium 100 mg capsule 100 mg PO DAILY cap 06/08/19 fluticasone propionate 50 2 spray INTRANASAL DAILY 06/08/19 mcg/actuation nasal spray,suspension furosemide 40 mg tablet 20 mg PO BID 06/08/19 potassium chloride 10 mEq 10 meq PO DAILY 06/08/19 tablet,extended release allopurinol 100 mg tablet 100 mg PO DAILY 08/11/19 buspirone 10 mg tablet 10 mg PO BID 08/11/19 Fluorometholone [Fml] 1 drp OP BID 08/30/19 Losartan Potassium [Cozaar] 12.5 mg PO DAILY 09/28/19 isosorbide mononitrate 120 mg 120 mg PO DAILY #30 tab 09/28/19 tablet,extended release 24 hr insulin glargine 100 unit/mL (3 36 unit SC BID ml 12/01/19 mL) subcutaneous pen metformin 500 mg tablet,extended 1,000 mg PO BID tab 12/01/19 release 24 hr metoprolol tartrate 100 mg tablet 100 mg PO BID #60 tab 05/01/20 nitroglycerin 0.4 mg sublingual 0.4 mg SUBLINGUAL Q5-15M PRN #25 07/04/20 tablet tab omeprazole 20 mg capsule,delayed 40 mg PO DAILY cap 07/04/20 release ranolazine 500 mg tablet,extended 500 mg PO BID #60 tab 07/04/20 release,12 hr Surgical History: Surgical History (Last Reviewed 07/04/20 @ 10:31 by Uma Vela PA, PA) Presence of coronary angioplasty implant and graft Onset Date: ~12/07/03 Z95.5 PCI/Stent to the prox 1st Diag branch 12/07/2003 History of cholecystectomy Z90.49 History of hernia repair Z98.890, Z87.19 History of knee surgery Z98.890 History of left heart catheterization (LHC) Onset Date: ~09/28/19 Z98.890 Single vessel CAD of the LCX, occluded very small LCX with Rt/Lt collaterals per cath; Mid LAD 40% stenosis, distal LAD 50% stenosis per cath 12/23/17; LEFT MAIN: Mild luminal irregularities; LEFT ANTERIOR DESCENDING ARTERY: PROX LAD: ecctatic / aneuyrsmal appearing, MID LAD: s/p DX1: 25 % Stenosis, 25 - 50 % Stenosis, DIAGONAL 1: Proximal - Previously placed stent is patent; CIRCUMFLEX ARTERY: OM 1: Proximal - is occluded and fills late, faintly, and partially from left to left and right to left collaterals; RIGHT CORONARY ARTERY: Mild luminal irregularities, PROX RCA: diffuse: eccentric: 25 % Stenosis; RT PDA: Proximal - diffuse: eccentric: 50 % Stenosis, Mid - diffuse: eccentric: 50 % Stenosis; RIGHT AV SEGMENT: distal: 25 % Stenosis per cath 09/28/19 History of nasal surgery Z98.890 History of surgery on wrist Z98.890 History of total abdominal hysterectomy Z90.710 History of tubal ligation Z98.51 Surgical History: angioplasty, cholecystectomy, herniorrhaphy, hysterectomy, - - tubal ligation. Psychiatric History: No pertinent psych hx [employer] History: No pertinent [employer]ER history Lives: With Family - Patient notes that her son is currently living with her. Smoking Status: Former smoker - Patient quit cigarette tobacco usage approximately 14 years prior to current presentation with prior to this 1 pack/day cigarette tobacco usage since she was approximately [age] years old. Tobacco Use: Non-smoker Alcohol: None Drugs: None - *Family History Sibling Family History: Family History (Last Reviewed 07/04/20 @ 10:31 by Uma MORA, PA) Mother CAD (coronary artery disease) Father CAD (coronary artery disease) Brother CAD (coronary artery disease) Sister Hypertension Sister Diabetes Sister Heart disease History Items: COPD - in sister. Maternal Family History: Family History (Last Reviewed 07/04/20 @ 10:31 by Uma MORA, PA) Mother CAD (coronary artery disease) Father CAD (coronary artery disease) Brother CAD (coronary artery disease) Sister Hypertension Sister Diabetes Sister Heart disease History Items: No pertinent history Paternal Family History: Family History (Last Reviewed 07/04/20 @ 10:31 by Uma MORA, PA) Mother CAD (coronary artery disease) Father CAD (coronary artery disease) Brother CAD (coronary artery disease) Sister Hypertension Sister Diabetes Sister Heart disease History Items: Heart Disease, Stroke - age 62 Offspring Family History: Family History (Last Reviewed 07/04/20 @ 10:31 by Uma MORA, PA) Mother CAD (coronary artery disease) Father CAD (coronary artery disease) Brother CAD (coronary artery disease) Sister Hypertension Sister Diabetes Sister Heart disease History Items: No pertinent history - 5 children, 32 grand children and great grandchildren Review of Systems Constitutional: Reports: Anorexia, Malaise, Weakness, Fatigue. Denies: Chills, Fever, Weight Change HEENT: Denies: Head Aches, Sinus Congestion, Sinus Drainage Cardiovascular: Denies: Chest Pain, Palpitations Respiratory: Denies: Cough, Shortness of breath at rest, Sputum production Gastrointestinal: Reports: Abdominal Pain, Diarrhea, Nausea, Vomiting Genitourinary: Denies: Dysuria Musculoskeletal: Reports: Back Pain, Joint Pain. Denies: Joint Tenderness Skin: Denies: Rash, Wounds Neurological: Denies: Numbness, Tingling, Focal weakness Psychiatric: Reports: Anxiety, Depression. Denies: Homicidal Ideations, Suicidal Ideations Hematologic/ Lymphatic: Denies: Easy Bruising, Easy Bleeding VTE Information - Inpt Only VTE Present on Admission: No VTE Mechan Device Prophylaxis: SCD's Reason prophylaxis not ordered:: Treatment Not Indicated - We will continue patient home Eliquis regimen. Patient Problems: Active and Suspected Problems (Last Reviewed 07/04/20 @ 10:31 by Uma Vela PA, PA) Nausea and vomiting (Acute) Lactic acidosis (Acute) Subjective: Patient laying in the ED bed, fatigued appearing, notes feeling somewhat improved with the ED regimen for nausea. Objective: Physical Examination: General: awake, alert, oriented x 3 and cooperative, laying in the ED bed, fatigued, no obvious distress. Skin: normal color, turgor, no icterus, cyanosis. HEENT: AT/NC, EOMI, PERRLA, dry MM, no carotid bruits or JVD noted. Lungs: CTA bilaterally, moderate effort, moderate decrease BL bases, no rales, ronchi or wheezing. Heart: Irregular, irregular, improved since initial ED presentation; no gallop, rub audible. Abdomen: soft, obese, no obvious tenderness to palpation, no rebound or guarding, difficult to assess distention given habitus, hyperactive bowel sounds, no obvious HSM. Extremities: no cyanosis, clubbing, or edema. Neurological: patient awake, alert, oriented as noted; cognitive function intact; pupils equally reactive to light and accomodation; cranial nerves II-XII grossly normal, moving all 4 extremities, no focal deficits, strength moderately to severely global decrease secondary to acute presentation. Psychiatric: affect appears fatigued otherwise normal, no acute evidence of depressive or anxiety feelings. - Physical Exam Vitals/I&O's: Vital Signs Temp Pulse Resp BP Pulse Ox 98.5 F 106 H 16 140/90 H 99 07/28/20 19:41 07/28/20 22:13 07/28/20 22:13 07/28/20 22:13 07/28/20 22:13 Oxygen Flow Rate (L/min) 3 Oxygen Delivery Method Nasal Cannula Weight: 208 lb 5.389 oz Body Mass Index (BMI) 38.0 Finger Stick Blood Glucose 263 Intake and Output for Last 24 Hours 07/26/20 07/27/20 07/28/20 23:59 23:59 23:59 Intake Total 1000 / 1000 Balance 1000 / 1000 Laboratory Results 07/28/20 20:05: WBC 8.6, RBC 4.24, Hgb 12.5, Hct 40.7, MCV 96.0, MCH 29.5, MCHC 30.7 L, RDW Std Deviation 50.4 H, RDW Coeff of Aubrey 14.6, Plt Count 184, MPV 10.3, Immature Gran % (Auto) 0.500, Neut % (Auto) 81.2 H, Lymph % (Auto) 8.7 L, Yancey % (Auto) 6.2, Eos % (Auto) 3.1, Baso % (Auto) 0.3, Absolute Neuts (auto) 7.0, Absolute Lymphs (auto) 0.75 L, Nucleated RBC % 0 07/28/20 20:05: Sodium 142, Potassium 4.8, Chloride 109 H, Carbon Dioxide 27.0, Anion Gap 6, BUN 26 H, Creatinine 1.27 H, Estim Creat Clear Calc 34.93, Est GFR (MDRD) Af Amer 54 L, Est GFR (MDRD) Non-Af 45 L, BUN/Creatinine Ratio 20.5 H, Glucose 245 H, Calcium 8.8, Total Bilirubin 0.50, AST 20, ALT 19, Alkaline Phosphatase 60, Total Protein 7.8, Albumin 3.3, Globulin 4.5 H, Albumin/Globulin Ratio 0.7 L, Lipase 118 07/28/20 20:05: Lactic Acid 3.3 H* 07/28/20 22:10: Lactic Acid 3.1 H* Assessment/Plan All Active Problems (Last Reviewed 07/04/20 @ 10:31 by Uma Vela PA, PA) Nausea and vomiting (Acute) Abnormal stress test (Acute) Gastroenteritis (Acute) Lactic acidosis (Acute) Abnormal nuclear stress test (Resolved) Bradycardia (Resolved) Hypokalemia (Resolved) Metabolic alkalosis (Resolved) Pneumonia (Resolved) Septic shock (Resolved) Toxic encephalopathy (Resolved) The patient is a 65 y/o F w/ PMHx: Chronic COPD w/ chronic hypoxic respiratory failure, PAF, Chronic Diastolic CHF, Hx VTE, , Diabetes mellitus type II, Hypertension, Hyperlipidemia, History of Tobacco use, CAD s/p PCI, GERD, Hypothyroidism, PARESH, Obesity, CKD stage III, chronic ongoing issues with nausea and intermittent loose stools who presents to the [facility] ED on 07/28/20 with history of increased above baseline nausea with associated emesis in addition to abdominal cramping preceding bowel movements noted to be more frequently loose over the last 48 hours. 1. N/V/D, ? Gastroenteritis with Lactic acidosis: Patient with several admissions with similar presentation, ongoing chronic issues with chronic nausea and occasional loose stools, may possibly be gastroenteritis but do feel that patient would benefit from referral to GI upon discharge, to be cautious if recurrent loose stools will obtain c diff, stool cx, O+P with repeat AM CBC. We will plan to trend lactic acid and continue hydration as suspect likely elevated related to GI losses and dehydration. Will not start antibiotics at this time given unclear source pending stool studies as may be viral gastroenteritis. Anti-emetics, pain regimen PRN. If stool studies are unremarkable will initiate antidiarrheal medication. 2. Chronic atrial fibrillation: We will continue patient home Eliquis, metoprolol regimen, rate in the ED improving with normal saline administration. 3. Chronic COPD with chronic hypoxic respiratory failure: We will encourage head of bed, I-S, as needed albuterol. Not on scheduled inhaler. 4. Hypertension: Continue home regimen including metoprolol, losartan, isosorbide with hold parameters as needed, PRN hydralazine. 5. Hyperlipidemia: We will continue home statin regimen. 6. Hypothyroidism: Continue home synthroid regimen. 7. CAD: Status post PCI x1, will continue aspirin, Eliquis, statin, metoprolol, losartan regimen. 8. Diabetes mellitus type II: Will hold home oral regimen, continue home insulin regimen, trialing clear liquids with advancement as tolerated to eventual ADA diet, accu checks w/ ISS. 9. History VTE (DVT, PE): We will continue patient home Eliquis regimen. 10. GERD: We will maintain on home PPI. 11. Obesity: Weight loss and lifestyle changes encouraged. 12. Anxiety and depression: We will continue patient home BuSpar, duloxetine regimen. 13. PARESH: We will continue CPAP nightly if amenable, has been noncompliant in the past. 14. DVT prophylaxis: SCDs, will continue home Eliquis regimen. 15. CODE status: Patient stating her healthcare power of business attorney is her self and despite several attempts to clarify cannot name other individual however she does live with her son, reports living will in place. Discussed CODE status at length including difference between FULL code, DNR-CCA and DNR-CC status. Following discussions about the differences in these status, requested Full Code status. Advanced Care Planning Face to Face Time: 16 minutes. OBSV E&M: [id number] Initial observation care L3 Procedures: 84037 Advncd Care Plan 30 Min
[2020-07-28 23:54] VITALS: BP 132/94; PULSE 100; RESP 16; TEMP 36.6; O2SAT 100
[2020-07-29] VITALS (16 sets, daily range): BP systolic 117–141; BP diastolic 61–96; PULSE 68–102; RESP 16–18; TEMP 36.3–36.9; O2SAT 96–100; BMI 37.1; BMI 37.2
--- NOTE | 2020-07-29 00:12 | ED.RN ---
ATTEMPTED TO CALL EMILIA AND ALEJANDRINA, NEITHER PICKED UP PHONE. NO MESSAGE WAS LEFT, ANSWERING MACHINES DID NOT CLASSIFY WHO WAS THE FURNACE KEEPER OF PHONE.
[2020-07-29 00:28] LABS: Reflex Lactate? Y
[2020-07-29] MEDS: 0.9% Saline Lock 10 ML Syringe IV (01:19)
[2020-07-29] MEDS: Metoprolol Tartrate 100 MG Tablet PO ×3 (01:20→21:15)
[2020-07-29] MEDS: 0.9% Normal Saline 1,000 ML 125 ML IV ×3 (01:20→17:36)
[2020-07-29 01:31] LABS: Lactic Acid 1.9 mmol/L (0.4-1.9)
[2020-07-29 01:46] LABS: Bedside Glucose 239 mg/dL (70-110)
[2020-07-29 02:14] LABS: Reflex Lactate? Y
[2020-07-29 03:11] LABS: Procalcitonin < 0.01 ng/mL (0.00-0.09)
[2020-07-29] MEDS: Levothyroxine 100 MCG Tablet PO (05:28)
[2020-07-29 07:26] LABS: Absolute Lymphocyte Count 0.85 X10^3/uL (0.83-4.51); Absolute Neutrophil Count 4.2 X10^3/uL (2.0-7.7); Basophil# 0.02 X10^3/uL; Basophil% 0.3 % (0-1); Eosinophil# 0.28 X10^3/uL; Eosinophils% 4.6 % (0-5); Hematocrit 34.1 % (37-47); Hemoglobin 10.3 g/dL (12.0-15.0); Lymphocyte # 0.85 X10^3/ul (4.0); Lymphocyte % 14.1 % (19-41); Mean Corp Hgb Conc 30.2 g/dL (32-36); Mean Corpuscular Hgb 29.4 pg (27.0-32.0); Mean Corpuscular Volume 97.4 fL (81-99); Mean Platelet Vol. 10.2 fl (6.2-12.0); Monocyte# 0.68 X10^3/uL; Monocyte% 11.3 % (0-10); NRBC Flagged by Analyzer 0 % (0-5); Neutrophil # 4.18 X10^3/uL (2.7-7.7); Neutrophil % 69.2 % (47-70); Platelet Count 155 K/mm3 (150-450); RBC Distribution Width CV 14.6 % (11.6-14.6); RBC Distribution Width SD 52.1 fl (35.1-43.9)
[2020-07-29 07:41] LABS: ALB/GLOB Ratio 0.7 RATIO (0.9-2.4); AST(SGOT) 14 U/L (15-37); Alanine Aminotransfer ALT/SGPT 14 U/L (13-56); Albumin, Serum 2.6 g/dL (3.2-5.0); Alkaline Phosphatase 44 U/L (45-117); Anion Gap 3 (5-15); BUN 19 mg/dL (7-18); BUN/Creat Ratio 21.3 RATIO (10-20); Chloride 116 mmol/L (98-107); Creatinine, Serum 0.89 mg/dL (0.55-1.02); EST Glomerular Filtration Rate 67 mL/min (>60); Est Glom Filt Rate - Afr Amer 81 mL/min (>60); Estimated Creatinine Clearance 49.84 ml/min; Globulin 3.5 g/dL (2.2-4.2); Glucose 150 mg/dL (74-106); Potassium 4.1 mmol/L (3.5-5.1); Protein, Total 6.1 g/dL (6.4-8.2); Sodium Level 146 mmol/L (136-145)
[2020-07-29] MEDS: busPIRone 5 MG Tablet 10 MG PO ×2 (09:04→21:15)
[2020-07-29] MEDS: DULoxetine Hcl 60 MG Capsule PO (09:05)
[2020-07-29] MEDS: Aspirin E.C. 81 MG Tablet PO (09:05)
[2020-07-29] MEDS: Pantoprazole Sodium 40 MG Tablet PO (09:05)
[2020-07-29 09:16] LABS: Bedside Glucose 165 mg/dL (70-110)
[2020-07-29] MEDS: Acetaminophen 325 MG Tablet 650 MG PO ×2 (09:17→16:19)
[2020-07-29] MEDS: Insulin Lispro 100 UNIT/ML INSULN.PEN 14 UNIT SC (09:18)
[2020-07-29] MEDS: Insulin Lispro 100 UNIT/ML INSULN.PEN SC ×3 (09:19→17:37)
[2020-07-29] MEDS: Losartan Potassium 25 MG Tablet 12.5 MG PO (11:27)
[2020-07-29] MEDS: Fluticasone 0.05% 1 SPRAY NASAL.SRY 2 SPRAY NASAL (11:28)
[2020-07-29] MEDS: APIXABAN 2.5 MG TABLET PO ×2 (11:28→21:15)
[2020-07-29] MEDS: Ranolazine 500 MG Tablet PO ×2 (11:30→21:15)
[2020-07-29] MEDS: Furosemide 20 MG Tablet PO ×2 (11:31→21:14)
--- NOTE | 2020-07-29 11:39 | PN_ITS ---
Patient Problems: Active and Suspected Problems (Last Reviewed 07/04/20 @ 10:31 by Uma Vela PA, PA) Nausea and vomiting (Acute) Gastroenteritis (Acute) Lactic acidosis (Acute) Subjective: Patient seen and examined. She was admitted with a complaint of nausea, vomiting and diarrhea, and was found to have lactic acidosis. She is being hydrated with IVF. She has no complaitns this morning. She says she hasnt had any diarrhea since admission. Review of systems otherwise negative. lactic acidosis has resolved. Vitals/I&O's: Vital Signs Temp Pulse Resp BP Pulse Ox 97.5 F L 68 18 137/79 H 100 07/29/20 08:58 07/29/20 09:05 07/29/20 08:58 07/29/20 09:05 07/29/20 08:58 Oxygen Flow Rate (L/min) 3 Oxygen Delivery Method Nasal Cannula Weight: 203 lb 4.259 oz Body Mass Index (BMI) 37.1 Finger Stick Blood Glucose 263 Intake and Output for Last 24 Hours 07/27/20 07/28/20 07/29/20 23:59 23:59 23:59 Intake Total 1999 1197.92 / 1197.92 Balance 1999 1197.92 / 1197.92 General: Alert, Oriented x3, Cooperative HEENT: Atraumatic, PERRLA, EOMI, Normocephalic Oral: Dry Mucosa Neck: Supple, No JVD, Negative Carotid Bruits Lungs: Clear to auscultation, Normal air movement, No rhonchi, No wheeze Cardiovascular: Regular rate, Regular Rhythm, Normal S1, Normal S2, No murmurs Abdomen: Bowel Sounds Present, Soft, Non Tender, Non-Distended, No Hepato- splenomegaly Extremities: No clubbing, No cyanosis, No edema, Capillary Refill Less than 3 Seconds Skin: No rashes, No breakdown Musculoskeletal: No Tenderness to Palpation of Joints or Extremities Lymphatic: No Cervical, Supraclavicular, or Inguinal Adenopathy Neurological: Cranial nerves II-XII grossly intact, Neuro grossly intact, Motor Exam 5/5 strength throughout Psych/Mental Status: Normal Affect, Appropriate, Alert and oriented to time, place, person, mood and affect Laboratory Results 07/28/20 20:05: WBC 8.6, RBC 4.24, Hgb 12.5, Hct 40.7, MCV 96.0, MCH 29.5, MCHC 30.7 L, RDW Std Deviation 50.4 H, RDW Coeff of Aubrey 14.6, Plt Count 184, MPV 10.3, Immature Gran % (Auto) 0.500, Neut % (Auto) 81.2 H, Lymph % (Auto) 8.7 L, Bradford % (Auto) 6.2, Eos % (Auto) 3.1, Baso % (Auto) 0.3, Absolute Neuts (auto) 7.0, Absolute Lymphs (auto) 0.75 L, Nucleated RBC % 0 07/28/20 20:05: Sodium 142, Potassium 4.8, Chloride 109 H, Carbon Dioxide 27.0, Anion Gap 6, BUN 26 H, Creatinine 1.27 H, Estim Creat Clear Calc 34.93, Est GFR (MDRD) Af Amer 54 L, Est GFR (MDRD) Non-Af 45 L, BUN/Creatinine Ratio 20.5 H, Glucose 245 H, Calcium 8.8, Total Bilirubin 0.50, AST 20, ALT 19, Alkaline Phosphatase 60, Total Protein 7.8, Albumin 3.3, Globulin 4.5 H, Albumin/Globulin Ratio 0.7 L, Lipase 118 07/28/20 20:05: Lactic Acid 3.3 H* 07/28/20 22:10: Lactic Acid 3.1 H* 07/29/20 00:56: Procalcitonin < 0.01 07/29/20 00:56: Lactic Acid 1.9 07/29/20 01:26: POC Glucose 239 H 07/29/20 06:59: WBC 6.0, RBC 3.50 L, Hgb 10.3 L, Hct 34.1 L, MCV 97.4, MCH 29.4, MCHC 30.2 L, RDW Std Deviation 52.1 H, RDW Coeff of Aubrey 14.6, Plt Count 155, MPV 10.2, Immature Gran % (Auto) 0.500, Neut % (Auto) 69.2, Lymph % (Auto) 14.1 L, Bradford % (Auto) 11.3 H, Eos % (Auto) 4.6, Baso % (Auto) 0.3, Absolute Neuts (auto) 4.2, Absolute Lymphs (auto) 0.85, Nucleated RBC % 0 07/29/20 06:59: Sodium 146 H, Potassium 4.1, Chloride 116 H, Carbon Dioxide 27.0, Anion Gap 3 L, BUN 19 H, Creatinine 0.89, Estim Creat Clear Calc 49.84, Est GFR (MDRD) Af Amer 81, Est GFR (MDRD) Non-Af 67, BUN/Creatinine Ratio 21.3 H , Glucose 150 H, Calcium 8.0 L, Total Bilirubin 0.40, AST 14 L, ALT 14, Alkaline Phosphatase 44 L, Total Protein 6.1 L, Albumin 2.6 L, Globulin 3.5, Albumin/Globulin Ratio 0.7 L 07/29/20 08:55: POC Glucose 165 H Diagnostic Data Abdomen/Pelvis CT 07/28/20 19:53 IMPRESSION: 1. Stable exam. 2. No acute abdominal findings. 3. Severe coronary artery disease and prior left ventricular infarcts. Biatrial enlargement. Electronically Signed: Jericajose Lizzeth, at 21:38 EST Tel , Service support , Current Medications Acetaminophen (Acetaminophen 325 Mg Tablet) 650 mg PO Q6H PRN PRN PRN Reason: Pain Score 1-10/Temp > 100.7 F Last Admin: 07/29/20 09:17 Dose: 650 mg Documented by: Al Hydroxide/Mg Hydroxide (Mag Hydrox/Al Hydrox/Simeth 30 Ml Udc) 30 ml PO Q6H PRN PRN PRN Reason: Gastric Burning Albuterol Sulfate (Albuterol 2.5 Mg/3 Ml Vial.Neb.) 2.5 mg INHALATION Q2H PRN PRN PRN Reason: Dyspnea, wheezing Allopurinol (Allopurinol 100 Mg Tablet) 100 mg PO DAILY [facility] Apixaban (Apixaban 2.5 Mg Tablet) 2.5 mg PO BID [facility] Last Admin: 07/29/20 11:28 Dose: 2.5 mg Documented by: Aspirin (Aspirin E.C. 81 Mg Tablet) 81 mg PO DAILY@0800 [facility] Last Admin: 07/29/20 09:05 Dose: 81 mg Documented by: Atorvastatin Calcium (Atorvastatin Calcium 40 Mg Tablet) 40 mg PO QHS [facility] Buspirone HCl (Buspirone 5 Mg Tablet) 10 mg PO BID [facility] Last Admin: 07/29/20 09:04 Dose: 10 mg Documented by: Duloxetine HCl (Duloxetine Hcl 60 Mg Capsule) 60 mg PO DAILY [facility] Last Admin: 07/29/20 09:05 Dose: 60 mg Documented by: Fluticasone Propionate (Fluticasone 0.05% 1 [place] Nasal.Sry) 2 spray NASAL DAILY [facility] Last Admin: 07/29/20 11:28 Dose: 2 spray Documented by: Furosemide (Furosemide 20 Mg Tablet) 20 mg PO BID [facility] Last Admin: 07/29/20 11:31 Dose: 20 mg Documented by: Guaifenesin (Guaifenesin 10 Ml Udc (200mg/10ml)) 20 ml PO Q4H PRN PRN PRN Reason: COUGH Hydralazine HCl (Hydralazine 20 Mg/Ml Vial) 10 mg IV Q4H PRN PRN PRN Reason: SBP > 160 Sodium Chloride () 1,000 mls @ 125 mls/hr IV .Q8H [facility] Last Admin: 07/29/20 09:19 Dose: 125 mls/hr Documented by: Sodium Chloride () 250 mls @ 15 mls/hr IV .[id number] PRN PRN Reason: Saline Flush Sodium Chloride () 250 mls @ 15 mls/hr IV .[id number] PRN PRN Reason: Additional IVPB Infusion Insulin Glargine (Insulin Glargine 100 Units/Ml Pen) 42 units SC BID [facility] Last Admin: 07/29/20 11:31 Dose: 42 units Documented by: Insulin Human Lispro (Insulin Lispro 100 Unit/Ml Insuln.Pen) 24 unit SC DINNER [facility] Insulin Human Lispro (Insulin Lispro 100 Unit/Ml Insuln.Pen) 20 unit SC LUNCH [facility] Insulin Human Lispro (Insulin Lispro 100 Unit/Ml Insuln.Pen) 14 unit SC BREAKFAST [facility] Last Admin: 07/29/20 09:18 Dose: 14 units Documented by: Insulin Human Lispro (Insulin Lispro 100 Unit/Ml Insuln.Pen) 0 unit SC ACHS [facility]; Protocol Last Admin: 07/29/20 09:19 Dose: 1 units Documented by: Isosorbide Mononitrate (Isosorbide Mononitrate 120 Mg Tablet) 120 mg PO DAILY [facility] Last Admin: 07/29/20 09:05 Dose: 120 mg Documented by: Levothyroxine Sodium (Levothyroxine 100 Mcg Tablet) 100 mcg PO DAILY@0600 [facility] Last Admin: 07/29/20 05:28 Dose: 100 mcg Documented by: Losartan Potassium (Losartan Potassium 25 Mg Tablet) 12.5 mg PO DAILY [facility] Last Admin: 07/29/20 11:27 Dose: 12.5 mg Documented by: Melatonin (Melatonin 3 Mg Tablet) 3 mg PO QHS PRN PRN PRN Reason: INSOMNIA Metoprolol Tartrate (Metoprolol Tartrate 100 Mg Tablet) 100 mg PO BID [facility] Last Admin: 07/29/20 09:05 Dose: 100 mg Documented by: Morphine Sulfate (Morphine 2 Mg/Ml Syringe) 2 mg IV Q3H PRN PRN PRN Reason: Pain Score 6-10 Nitroglycerin (Nitroglycerin (Inpatient Use) 0.4 Mg Tab.Subl) 0.4 mg SUBLINGUAL Q5M PRN PRN Reason: CARDIAC/CHEST PAIN Nutritional Formula (Lactose Free) (Ensure Clear 120 Ml Liquid) 120 ml PO 4X/DAY [facility] Last Admin: 07/29/20 11:28 Dose: Not Given Documented by: Oxycodone HCl (Oxycodone 5 Mg Tablet) 5 mg PO Q4H PRN PRN PRN Reason: Pain Score 4-5 Pantoprazole Sodium (Pantoprazole Sodium 40 Mg Tablet) 40 mg PO DAILY [facility] Last Admin: 07/29/20 09:05 Dose: 40 mg Documented by: Potassium Chloride (Potassium Chloride 10 Meq Tablet) 10 meq PO DAILY [facility] Last Admin: 07/29/20 09:05 Dose: 10 meq Documented by: Prochlorperazine Edisylate (Prochlorperazine 10 Mg/2 Ml Vial) 5 mg IV Q4H PRN PRN PRN Reason: Breakthrough nausea/vomiting Promethazine HCl (Promethazine 25 Mg/Ml Syringe) 12.5 mg IV Q4H PRN PRN PRN Reason: NAUSEA/VOMITING Ranolazine (Ranolazine 500 Mg Tablet) 500 mg PO BID [facility] Last Admin: 07/29/20 11:30 Dose: 500 mg Documented by: Sodium Chloride (0.9% Saline Lock 10 Ml Syringe) 10 - 40 ml IV UD PRN PRN Reason: SALINE FLUSH Last Admin: 07/29/20 01:19 Dose: 10 ml Documented by: Throat Lozenges (Benzocaine/Menthol 1 Lozenge) 1 lozenge MUCOUS MEM Q2H PRN PRN PRN Reason: SORE THROAT STROKE Vital Signs/Narrative: Vital Signs Temp Pulse Resp BP Pulse Ox 07/29/20 09:05 68 137/79 H 07/29/20 08:58 97.5 F L 68 18 137/79 H 100 07/29/20 08:01 81 Medical Necessity - Tobacco Use Smoking Status: Former smoker - Patient quit cigarette tobacco usage approximately 14 years prior to current presentation with prior to this 1 pack/day cigarette tobacco usage since she was approximately [age] years old. Tobacco Use: Non-smoker Assessment/Plan All Active Problems (Last Reviewed 07/04/20 @ 10:31 by Uma Vela PA, PA) Nausea and vomiting (Acute) Abnormal stress test (Acute) Gastroenteritis (Acute) Lactic acidosis (Acute) Abnormal nuclear stress test (Resolved) Bradycardia (Resolved) Hypokalemia (Resolved) Metabolic alkalosis (Resolved) Pneumonia (Resolved) Septic shock (Resolved) Toxic encephalopathy (Resolved) # gastroenteritis * diarrhea and vomiting have resolved * continue gentle hydration with IVF * advance diet as tolerated; now on full liquid diet * # lactic acidosis: resolved # Hypernatremia: sodium is up to 146 today; likely due to IVF. Will reduce IVF # Chronic afib: on eliquis and metoprolol # Chronic hypoxic respiratory failure due to COPD: brawething treatments with bronchodilators. On 3L of oxygen as needed # Hypertension; on metoprolol, losartan and imdur # Hyperlipidemia: on statin #Hypothyroidism: on synthroid # CAD s/p stents; on aspirin, statins, eliquis, metoprolol and losartan # Type 2 diabetes mellitus: on insulin. ISS. 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
[2020-07-29] MEDS: Allopurinol 100 MG Tablet PO (11:46)
[2020-07-29 12:10] LABS: Bedside Glucose 178 mg/dL (70-110)
[2020-07-29] MEDS: Insulin Lispro 100 UNIT/ML INSULN.PEN 20 UNIT SC (13:15)
[2020-07-29 16:35] LABS: Bedside Glucose 194 mg/dL (70-110)
[2020-07-29] MEDS: Insulin Lispro 100 UNIT/ML INSULN.PEN 24 UNIT SC (17:35)
[2020-07-29] MEDS: Atorvastatin Calcium 40 MG Tablet PO (21:15)
[2020-07-29 21:30] LABS: Bedside Glucose 124 mg/dL (70-110)
[2020-07-29] MEDS: oxyCODONE 5 MG Tablet PO (21:30)
[2020-07-30] VITALS (7 sets, daily range): BP systolic 94–120; BP diastolic 60–70; PULSE 70–93; RESP 18–20; TEMP 36.4–36.6; O2SAT 95–100
[2020-07-30] MEDS: 0.9% Normal Saline 1,000 ML 125 ML IV (02:05)
[2020-07-30] MEDS: oxyCODONE 5 MG Tablet PO (02:06)
[2020-07-30 06:05] LABS: Absolute Lymphocyte Count 0.86 X10^3/uL (0.83-4.51); Absolute Neutrophil Count 3.9 X10^3/uL (2.0-7.7); Basophil# 0.03 X10^3/uL; Basophil% 0.5 % (0-1); Eosinophil# 0.31 X10^3/uL; Eosinophils% 5.5 % (0-5); Hematocrit 34.4 % (37-47); Hemoglobin 10.7 g/dL (12.0-15.0); Lymphocyte # 0.86 X10^3/ul (4.0); Lymphocyte % 15.2 % (19-41); Mean Corp Hgb Conc 31.1 g/dL (32-36); Mean Corpuscular Hgb 30.2 pg (27.0-32.0); Mean Corpuscular Volume 97.2 fL (81-99); Mean Platelet Vol. 10.2 fl (6.2-12.0); Monocyte# 0.61 X10^3/uL; Monocyte% 10.8 % (0-10); NRBC Flagged by Analyzer 0 % (0-5); Neutrophil # 3.85 X10^3/uL (2.7-7.7); Neutrophil % 67.8 % (47-70); Platelet Count 162 K/mm3 (150-450); RBC Distribution Width CV 14.6 % (11.6-14.6); RBC Distribution Width SD 50.7 fl (35.1-43.9); Red Blood Count 3.54 M/mm3 (4.2-5.4); White Blood Count 5.7 K/mm3 (4.4-11.0)
[2020-07-30] MEDS: Levothyroxine 100 MCG Tablet PO (06:07)
[2020-07-30 06:26] LABS: Anion Gap 1 (5-15); BUN 15 mg/dL (7-18); BUN/Creat Ratio 18.2 RATIO (10-20); Chloride 114 mmol/L (98-107); Creatinine, Serum 0.82 mg/dL (0.55-1.02); EST Glomerular Filtration Rate 74 mL/min (>60); Est Glom Filt Rate - Afr Amer 90 mL/min (>60); Glucose 63 mg/dL (74-106); Potassium 3.9 mmol/L (3.5-5.1); Sodium Level 144 mmol/L (136-145)
[2020-07-30] MEDS: Aspirin E.C. 81 MG Tablet PO (08:48)
[2020-07-30 09:06] LABS: Bedside Glucose 93 mg/dL (70-110)
[2020-07-30] MEDS: Insulin Lispro 100 UNIT/ML INSULN.PEN SC ×2 (10:28→12:42)
--- NOTE | 2020-07-30 10:30 | PCM.DC ---
- Discharge Diagnoses Current Active Problems: Current Active and Chronic Problems (Last Reviewed 07/04/20 @ 10:31 by Uma MORA, PA) Nausea and vomiting (Acute) Gastroenteritis (Acute) Lactic acidosis (Acute) Presence of stent in coronary artery (Chronic ~12/07/03) PCI/Stent to the prox 1st Diag branch 12/07/2003 Mixed hyperlipidemia (Chronic) Atherosclerotic heart disease of [place] coronary artery without angina pectoris (Chronic) Essential hypertension (Chronic) Paroxysmal A-fib (Chronic) Diabetes mellitus type 2 in obese (Chronic) GERD (gastroesophageal reflux disease) (Chronic) COPD (chronic obstructive pulmonary disease) (Chronic) Chronic respiratory insufficiency (Chronic) On home oxygen at night PARESH (obstructive sleep apnea) (Chronic) non-complaint with CPAP You will use the following diet at home:: Calorie/Carbohydrate Controlled (specify 1200, 1400, etc) - 1800 Your food should be the consistency of: Regular Your liquids should be the consistency of: Regular/Thin Discharge Activity: Return to Normal Activity Weight Bearing Status: Weight bearing as tolerated Call your doctor if you observe: Fever of 101 or Higher, Shortness of breath, Dizziness Instructions: ED Diet for Vomiting or Diarrhea Adult Allergies/Adverse Reactions: Allergies ciprofloxacin [From Cipro] Allergy (Verified 07/04/20 09:54) Hives latex Allergy (Verified 07/04/20 09:54) matos me niacin [From Niaspan Extended-Release] Allergy (Verified 07/04/20 09:54) Hives ondansetron [From Zofran] Allergy (Verified 07/04/20 09:54) Unknown Xanthines Allergy (Verified 07/04/20 09:54) Unknown orphenadrine citrate [From Norgesic] Adverse Reaction (Verified 07/04/20 09:54) groggy medical tape Adverse Reaction (Uncoded 08/11/19 10:11) blisters Medications to take at Discharge Atorvastatin Calcium [Lipitor] 40 mg PO DAILY 02/03/18 Duloxetine Hcl [Cymbalta] 60 mg PO DAILY 02/03/18 Insulin Lispro [Humalog KwikPen] 20 unit SQ LUNCH 02/03/18 Insulin Lispro [Humalog KwikPen] 24 unit SQ DINNER 02/03/18 Insulin Lispro [Humalog] 14 unit SQ BREAKFAST 02/03/18 Levothyroxine [Synthroid] 100 mcg PO DAILY 02/03/18 Apixaban [Eliquis] 2.5 mg PO BID 05/17/18 Ascorbic Acid [Vitamin C] 500 mg PO DAILY@0800 05/17/18 Albuterol IH (ProAir) [Proair Hfa] 2 puff INHALATION Q4H PRN PRN 08/05/18 Aspirin E.C. [Ecotrin] 81 mg PO DAILY@0800 09/02/18 docusate sodium 100 mg capsule 100 mg PO DAILY cap 06/08/19 fluticasone propionate 50 mcg/actuation nasal spray,suspension 2 spray INTRANASAL DAILY 06/08/19 furosemide 40 mg tablet 20 mg PO BID 06/08/19 potassium chloride 10 mEq tablet,extended release 10 meq PO DAILY 06/08/19 allopurinol 100 mg tablet 100 mg PO DAILY 08/11/19 buspirone 10 mg tablet 10 mg PO BID 08/11/19 Fluorometholone [Fml] 1 drp OP BID 08/30/19 Losartan Potassium [Cozaar] 12.5 mg PO DAILY 09/28/19 isosorbide mononitrate 120 mg tablet,extended release 24 hr 120 mg PO DAILY #30 tab 09/28/19 insulin glargine 100 unit/mL (3 mL) subcutaneous pen 36 unit SC BID ml 12/01/19 metformin 500 mg tablet,extended release 24 hr 1,000 mg PO BID tab 12/01/19 metoprolol tartrate 100 mg tablet 100 mg PO BID #60 tab 05/01/20 nitroglycerin 0.4 mg sublingual tablet 0.4 mg SUBLINGUAL Q5-15M PRN #25 tab 07/04/20 omeprazole 20 mg capsule,delayed release 40 mg PO DAILY cap 07/04/20 ranolazine 500 mg tablet,extended release,12 hr 500 mg PO BID #60 tab 07/04/20 Primary Care Physician: Bhupendra Oliveira MD [Primary Care Provider] - Please follow up with your Primary Care Physician in: 1-2 WEEKS Test Results: Test results from this visit will be discussed in further detail at your follow-up appointment, if applicable. Proposed Discharge Date: 07/30/20
[2020-07-30] MEDS: DULoxetine Hcl 60 MG Capsule PO (10:32)
[2020-07-30] MEDS: Furosemide 20 MG Tablet PO (10:32)
[2020-07-30] MEDS: APIXABAN 2.5 MG TABLET PO (10:32)
[2020-07-30] MEDS: Losartan Potassium 25 MG Tablet 12.5 MG PO (10:35)
[2020-07-30] MEDS: busPIRone 5 MG Tablet 10 MG PO (10:35)
--- NOTE | 2020-07-30 10:35 | PCM.DC.SUM ---
Discharge Date and Diagnosis - Problem List Patient Problems: Active and Suspected Problems (Last Reviewed 07/04/20 @ 10:31 by Uma MORA, PA) Nausea and vomiting (Acute) Gastroenteritis (Acute) Lactic acidosis (Acute) Date of Admission: 07/28/20 Date of Discharge: 07/30/20 - Primary Discharge Diagnosis Acute Problems: Active Problems (Last Reviewed 07/04/20 @ 10:31 by Uma MORA, PA) Nausea and vomiting (Acute) Gastroenteritis (Acute) Lactic acidosis (Acute) - Secondary Discharge Diagnosis Chronic Problems: Chronic Problems (Last Reviewed 07/04/20 @ 10:31 by Uma MORA, PA) Presence of stent in coronary artery (Chronic ~12/07/03) PCI/Stent to the prox 1st Diag branch 12/07/2003 Mixed hyperlipidemia (Chronic) Atherosclerotic heart disease of [place] coronary artery without angina pectoris (Chronic) Essential hypertension (Chronic) Paroxysmal A-fib (Chronic) Diabetes mellitus type 2 in obese (Chronic) Hypothyroidism (Chronic) GERD (gastroesophageal reflux disease) (Chronic) COPD (chronic obstructive pulmonary disease) (Chronic) Chronic respiratory insufficiency (Chronic) On home oxygen at night PARESH (obstructive sleep apnea) (Chronic) non-complaint with CPAP Hospital Course and Treatment Imaging Results: Diagnostic Data Abdomen/Pelvis CT 07/28/20 19:53 IMPRESSION: 1. Stable exam. 2. No acute abdominal findings. 3. Severe coronary artery disease and prior left ventricular infarcts. Biatrial enlargement. Electronically Signed: Jaja Lizzeth, at 21:38 EST Tel , Service support , Operations: None Procedures: None Summary of Care Provided: Patient is a 65 y/o female admitted through the ED on 07/28/2020 with a complaint of nausea, vomiting and diarrhea as well as abdominal cramping. Symptoms had worsened over the last 48 hours prior to admission and so she decided to come into the ED. On arrival in the ED, she was found to have initial lactic acid of 3.3. CBC was unremarkable and BMP was unremarkable. CT of the abdomen pelvis showed no acute intra-abdominal pathology and showed evidence of severe coronary artery disease and prior left ventricular infarct with biatrial enlargement. She was started on normal saline and admitted and managed for acute gastroenteritis. Diarrhea gradually resolved and patient tolerated clear liquid diet. Diet was therefore advanced to full liquid and then to regular diet. Patient tolerated all this well. Lactic acid trended down to normal. She remained stable and was discharged home on 07/30/2020. She is to follow-up with her primary care doctor within 1 to 2 weeks. Patient seen and examined prior to discharge. She had no complaints. Review of symptoms otherwise negative. Labs and vitals reviewed. Medication reviewed and reconciled. O/E: Vital Signs Temp Pulse Resp BP Pulse Ox 97.5 F L 70 18 120/60 100 07/30/20 08:34 07/30/20 11:01 07/30/20 08:34 07/30/20 11:07/30/20 08:34 General: Alert, Oriented x3, Cooperative, No apparent distress HEENT: Atraumatic, PERRLA, EOMI, Normocephalic Oral: Dry Mucosa Neck: Supple, No JVD, Negative Carotid Bruits Lungs: - - diminished breath sounds bibasally, few crackles. On 2L of oxygen by nasal canula, which is her baseline Cardiovascular: Regular rate, Regular Rhythm, Normal S1, Normal S2, No murmurs Abdomen: Bowel Sounds Present, Soft, Non Tender, Non-Distended, No Hepato-splenomegaly Extremities: No clubbing, No cyanosis, No edema, Capillary Refill Less than 3 Seconds Skin: No rashes, No breakdown Musculoskeletal: No Tenderness to Palpation of Joints or Extremities Lymphatic: No Cervical, Supraclavicular, or Inguinal Adenopathy Neurological: Cranial nerves II-XII grossly intact, Neuro grossly intact, Motor Exam 5/5 strength throughout Psych/Mental Status: Normal Affect, Appropriate, Alert and oriented to time, place, person, mood and affect Plan is for discharge home today. Patient Problems: Active and Suspected Problems (Last Reviewed 07/04/20 @ 10:31 by Uma MORA, PA) Nausea and vomiting (Acute) Gastroenteritis (Acute) Lactic acidosis (Acute) - Physical Exam Vitals/I&O's: Vital Signs Temp Pulse Resp BP Pulse Ox 97.5 F L 70 18 110/70 100 07/30/20 08:34 07/30/20 08:34 07/30/20 08:34 07/30/20 08:34 07/30/20 08:34 Oxygen Flow Rate (L/min) 3 Oxygen Delivery Method Nasal Cannula Weight: 207 lb 10.807 oz Body Mass Index (BMI) 37.1 Finger Stick Blood Glucose 263 Intake and Output for Last 24 Hours 07/28/20 07/29/20 07/30/20 23:59 23:59 23:59 Intake Total 1999 2997.92 / 2997.92 1300 / 1300 Output Total 1900 / 1900 1050 / 1050 Balance 1999 1097.92 / 1097.92 250 / 250 Laboratory Results 07/29/20 12:04: POC Glucose 178 H 07/29/20 16:17: POC Glucose 194 H 07/29/20 21:14: POC Glucose 124 H 07/30/20 05:53: WBC 5.7, RBC 3.54 L, Hgb 10.7 L, Hct 34.4 L, MCV 97.2, MCH 30.2, MCHC 31.1 L, RDW Std Deviation 50.7 H, RDW Coeff of Aubrey 14.6, Plt Count 162, MPV 10.2, Immature Gran % (Auto) 0.200, Neut % (Auto) 67.8, Lymph % (Auto) 15.2 L, [place] % (Auto) 10.8 H, Eos % (Auto) 5.5 H, Baso % (Auto) 0.5, Absolute Neuts (auto) 3.9, Absolute Lymphs (auto) 0.86, Nucleated RBC % 0 07/30/20 05:53: Sodium 144, Potassium 3.9, Chloride 114 H, Carbon Dioxide 29.0, Anion Gap 1 L, BUN 15, Creatinine 0.82, Estim Creat Clear Calc 54.10, Est GFR (MDRD) Af Amer 90, Est GFR (MDRD) Non-Af 74, BUN/Creatinine Ratio 18.2, Glucose 63 L, Calcium 8.0 L 07/30/20 08:56: POC Glucose 93 Current Medications Acetaminophen (Acetaminophen 325 Mg Tablet) 650 mg PO Q6H PRN PRN PRN Reason: Pain Score 1-10/Temp > 100.7 F Last Admin: 07/29/20 16:19 Dose: 650 mg Documented by: Al Hydroxide/Mg Hydroxide (Mag Hydrox/Al Hydrox/Simeth 30 Ml Udc) 30 ml PO Q6H PRN PRN PRN Reason: Gastric Burning Albuterol Sulfate (Albuterol 2.5 Mg/3 Ml Vial.Neb.) 2.5 mg INHALATION Q2H PRN PRN PRN Reason: Dyspnea, wheezing Allopurinol (Allopurinol 100 Mg Tablet) 100 mg PO DAILY [facility] Last Admin: 07/29/20 11:46 Dose: 100 mg Documented by: Apixaban (Apixaban 2.5 Mg Tablet) 2.5 mg PO BID [facility] Last Admin: 07/29/20 21:15 Dose: 2.5 mg Documented by: Aspirin (Aspirin E.C. 81 Mg Tablet) 81 mg PO DAILY@0800 [facility] Last Admin: 07/30/20 08:48 Dose: 81 mg Documented by: Atorvastatin Calcium (Atorvastatin Calcium 40 Mg Tablet) 40 mg PO QHS [facility] Last Admin: 07/29/20 21:15 Dose: 40 mg Documented by: Buspirone HCl (Buspirone 5 Mg Tablet) 10 mg PO BID [facility] Last Admin: 07/29/20 21:15 Dose: 10 mg Documented by: Duloxetine HCl (Duloxetine Hcl 60 Mg Capsule) 60 mg PO DAILY [facility] Last Admin: 07/29/20 09:05 Dose: 60 mg Documented by: Fluticasone Propionate (Fluticasone 0.05% 1 [place] Nasal.Sry) 2 spray NASAL DAILY [facility] Last Admin: 07/29/20 11:28 Dose: 2 spray Documented by: Furosemide (Furosemide 20 Mg Tablet) 20 mg PO BID [facility] Last Admin: 07/29/20 21:14 Dose: 20 mg Documented by: Guaifenesin (Guaifenesin 10 Ml Udc (200mg/10ml)) 20 ml PO Q4H PRN PRN PRN Reason: COUGH Hydralazine HCl (Hydralazine 20 Mg/Ml Vial) 10 mg IV Q4H PRN PRN PRN Reason: SBP > 160 Sodium Chloride () 1,000 mls @ 125 mls/hr IV .Q8H [facility] Last Admin: 07/30/20 02:05 Dose: 125 mls/hr Documented by: Sodium Chloride () 250 mls @ 15 mls/hr IV .[id number] PRN PRN Reason: Saline Flush Sodium Chloride () 250 mls @ 15 mls/hr IV .[id number] PRN PRN Reason: Additional IVPB Infusion Insulin Glargine (Insulin Glargine 100 Units/Ml Pen) 42 units SC BID [facility] Last Admin: 07/29/20 21:16 Dose: 42 units Documented by: Insulin Human Lispro (Insulin Lispro 100 Unit/Ml Insuln.Pen) 24 unit SC DINNER [facility] Last Admin: 07/29/20 17:35 Dose: 24 units Documented by: Insulin Human Lispro (Insulin Lispro 100 Unit/Ml Insuln.Pen) 20 unit SC LUNCH [facility] Last Admin: 07/29/20 13:15 Dose: 20 units Documented by: Insulin Human Lispro (Insulin Lispro 100 Unit/Ml Insuln.Pen) 14 unit SC BREAKFAST [facility] Last Admin: 07/29/20 09:18 Dose: 14 units Documented by: Insulin Human Lispro (Insulin Lispro 100 Unit/Ml Insuln.Pen) 0 unit SC ACHS [facility]; Protocol Last Admin: 07/29/20 21:15 Dose: Not Given Documented by: Isosorbide Mononitrate (Isosorbide Mononitrate 120 Mg Tablet) 120 mg PO DAILY [facility] Last Admin: 07/29/20 09:05 Dose: 120 mg Documented by: Levothyroxine Sodium (Levothyroxine 100 Mcg Tablet) 100 mcg PO DAILY@0600 [facility] Last Admin: 07/30/20 06:07 Dose: 100 mcg Documented by: Losartan Potassium (Losartan Potassium 25 Mg Tablet) 12.5 mg PO DAILY [facility] Last Admin: 07/29/20 11:27 Dose: 12.5 mg Documented by: Melatonin (Melatonin 3 Mg Tablet) 3 mg PO QHS PRN PRN PRN Reason: INSOMNIA Metoprolol Tartrate (Metoprolol Tartrate 100 Mg Tablet) 100 mg PO BID [facility] Last Admin: 07/29/20 21:15 Dose: 100 mg Documented by: Morphine Sulfate (Morphine 2 Mg/Ml Syringe) 2 mg IV Q3H PRN PRN PRN Reason: Pain Score 6-10 Nitroglycerin (Nitroglycerin (Inpatient Use) 0.4 Mg Tab.Subl) 0.4 mg SUBLINGUAL Q5M PRN PRN Reason: CARDIAC/CHEST PAIN Nutritional Formula (Lactose Free) (Ensure Clear 120 Ml Liquid) 120 ml PO 4X/DAY [facility] Last Admin: 07/29/20 21:15 Dose: Not Given Documented by: Oxycodone HCl (Oxycodone 5 Mg Tablet) 5 mg PO Q4H PRN PRN PRN Reason: Pain Score 4-5 Last Admin: 07/30/20 02:06 Dose: 5 mg Documented by: Pantoprazole Sodium (Pantoprazole Sodium 40 Mg Tablet) 40 mg PO DAILY [facility] Last Admin: 07/29/20 09:05 Dose: 40 mg Documented by: Potassium Chloride (Potassium Chloride 10 Meq Tablet) 10 meq PO DAILY [facility] Last Admin: 07/30/20 08:49 Dose: 10 meq Documented by: Prochlorperazine Edisylate (Prochlorperazine 10 Mg/2 Ml Vial) 5 mg IV Q4H PRN PRN PRN Reason: Breakthrough nausea/vomiting Promethazine HCl (Promethazine 25 Mg/Ml Syringe) 12.5 mg IV Q4H PRN PRN PRN Reason: NAUSEA/VOMITING Ranolazine (Ranolazine 500 Mg Tablet) 500 mg PO BID [facility] Last Admin: 07/29/20 21:15 Dose: 500 mg Documented by: Sodium Chloride (0.9% Saline Lock 10 Ml Syringe) 10 - 40 ml IV UD PRN PRN Reason: SALINE FLUSH Last Admin: 07/29/20 01:19 Dose: 10 ml Documented by: Throat Lozenges (Benzocaine/Menthol 1 Lozenge) 1 lozenge MUCOUS MEM Q2H PRN PRN PRN Reason: SORE THROAT Discharge Diet: Low fat/ Low Cholesterol Discharge Activity: Return to Normal Activity Weight Bearing Status: Weight bearing as tolerated Call your doctor if you observe: Fever of 101 or Higher, Shortness of breath, Dizziness Home Medications: Medications to take at Discharge Atorvastatin Calcium [Lipitor] 40 mg PO DAILY 02/03/18 Duloxetine Hcl [Cymbalta] 60 mg PO DAILY 02/03/18 Insulin Lispro [Humalog KwikPen] 20 unit SQ LUNCH 02/03/18 Insulin Lispro [Humalog KwikPen] 24 unit SQ DINNER 02/03/18 Insulin Lispro [Humalog] 14 unit SQ BREAKFAST 02/03/18 Levothyroxine [Synthroid] 100 mcg PO DAILY 02/03/18 Apixaban [Eliquis] 2.5 mg PO BID 05/17/18 Ascorbic Acid [Vitamin C] 500 mg PO DAILY@0800 05/17/18 Albuterol IH (ProAir) [Proair Hfa] 2 puff INHALATION Q4H PRN PRN 08/05/18 Aspirin E.C. [Ecotrin] 81 mg PO DAILY@0800 09/02/18 docusate sodium 100 mg capsule 100 mg PO DAILY cap 06/08/19 fluticasone propionate 50 mcg/actuation nasal spray,suspension 2 spray INTRANASAL DAILY 06/08/19 furosemide 40 mg tablet 20 mg PO BID 06/08/19 potassium chloride 10 mEq tablet,extended release 10 meq PO DAILY 06/08/19 allopurinol 100 mg tablet 100 mg PO DAILY 08/11/19 buspirone 10 mg tablet 10 mg PO BID 08/11/19 Fluorometholone [Fml] 1 drp OP BID 08/30/19 Losartan Potassium [Cozaar] 12.5 mg PO DAILY 09/28/19 isosorbide mononitrate 120 mg tablet,extended release 24 hr 120 mg PO DAILY #30 tab 09/28/19 insulin glargine 100 unit/mL (3 mL) subcutaneous pen 36 unit SC BID ml 12/01/19 metformin 500 mg tablet,extended release 24 hr 1,000 mg PO BID tab 12/01/19 metoprolol tartrate 100 mg tablet 100 mg PO BID #60 tab 05/01/20 nitroglycerin 0.4 mg sublingual tablet 0.4 mg SUBLINGUAL Q5-15M PRN #25 tab 07/04/20 omeprazole 20 mg capsule,delayed release 40 mg PO DAILY cap 07/04/20 ranolazine 500 mg tablet,extended release,12 hr 500 mg PO BID #60 tab 07/04/20 Primary Care Physician: Bhupendra Oliveira MD [Primary Care Provider] - Please follow up with your Primary Care Physician in: 1-2 WEEKS Patient Instructions: ED Diet for Vomiting or Diarrhea Adult Disposition: Home Minutes spent on discharge:: 35 Patient Condition:: Stable Medical Necessity - Tobacco Use Smoking Status: Former smoker - Patient quit cigarette tobacco usage approximately 14 years prior to current presentation with prior to this 1 pack/day cigarette tobacco usage since she was approximately [age] years old. Tobacco Use: Non-smoker Meaningful Use Info Meaningful Use Diagnoses (Choose all that apply): None applicable Inpatient E&M: [id number] [facility]
[2020-07-30] MEDS: Pantoprazole Sodium 40 MG Tablet PO (10:36)
[2020-07-30] MEDS: Ranolazine 500 MG Tablet PO (10:36)
[2020-07-30] MEDS: Fluticasone 0.05% 1 SPRAY NASAL.SRY 2 SPRAY NASAL (10:36)
[2020-07-30] MEDS: Allopurinol 100 MG Tablet PO (10:38)
[2020-07-30] MEDS: Metoprolol Tartrate 100 MG Tablet PO (11:01)
[2020-07-30 11:11] LABS: Bedside Glucose 205 mg/dL (70-110)
[2020-07-30] MEDS: Insulin Lispro 100 UNIT/ML INSULN.PEN 20 UNIT SC (12:41)
[2020-07-30 12:51] LABS: Bedside Glucose 262 mg/dL (70-110)
[2020-07-31 14:35] LABS: Bedside Glucose 67 mg/dL (70-110)
[2020-07-31 14:35] LABS: Bedside Glucose 55 mg/dL (70-110)
== END 2020-07-30 14:12 | disposition home or self-care (01) ==
LOC: ED 20:11 → MS3 07-29 00:01
PROVIDERS: Admitting Provider Family Medicine; Emergency Provider Emergency Medicine; PCP Family Medicine; Referring Provider Family Medicine; Visit Provider Student in an Organized Health Care Education/Training Program
DX: K52.9 Noninfective gastroenteritis and colitis, unspecified (principal); E87.2 Acidosis; Z23 Encounter for immunization; E78.2 Mixed hyperlipidemia; I25.10 Atherosclerotic heart disease of native coronary artery without angina pectoris; E11.22 Type 2 diabetes mellitus with diabetic chronic kidney disease; I48.0 Paroxysmal atrial fibrillation; K21.9 Gastro-esophageal reflux disease without esophagitis; J44.9 Chronic obstructive pulmonary disease, unspecified; G47.33 Obstructive sleep apnea (adult) (pediatric); I13.0 Hypertensive heart and chronic kidney disease with heart failure and stage 1 through stage 4 chronic kidney disease, or unspecified chronic kidney disease; J96.11 Chronic respiratory failure with hypoxia; I50.32 Chronic diastolic (congestive) heart failure; E11.43 Type 2 diabetes mellitus with diabetic autonomic (poly)neuropathy; E66.9 Obesity, unspecified; Z68.38 Body mass index [BMI] 38.0-38.9, adult; E03.9 Hypothyroidism, unspecified; N18.30 Chronic kidney disease, stage 3 unspecified; G25.81 Restless legs syndrome; Z79.899 Other long term (current) drug therapy; Z79.4 Long term (current) use of insulin; Z79.01 Long term (current) use of anticoagulants; Z79.82 Long term (current) use of aspirin; Z79.51 Long term (current) use of inhaled steroids; Z95.5 Presence of coronary angioplasty implant and graft; Z99.81 Dependence on supplemental oxygen; Z87.891 Personal history of nicotine dependence; Z91.19 Patient's noncompliance with other medical treatment and regimen; Z86.711 Personal history of pulmonary embolism; Z86.718 Personal history of other venous thrombosis and embolism; F41.9 Anxiety disorder, unspecified; F32.9 Major depressive disorder, single episode, unspecified
CPT/HCPCS: 36415; 74176; 80048; 80053; 82962; 83605; 83690; 84145; 85025; 96361; 96374; 97116; 97162; 97165; 97530; 97802; 99218; 99285; G0008; J7030; 90686; A4216; G0378

== ENCOUNTER 2020-08-30 16:07 | Emergency (ER) | payer MEDICARE, MEDICAID, SELFPAY ==
[2020-07-29 00:31] VITALS: BMI 37.1
[2020-08-30 16:25] VITALS: BP 113/58; PULSE 77; RESP 18; TEMP 37; O2SAT 99; BMI 35.8
--- NOTE | 2020-08-30 17:58 | ED.DCSUM_ITS ---
History of Present Illness Chief Complaint: Other, Pain/Inj Informant: Patient Narrative: 65-year-old female presenting with left upper lip pain which radiates into her left cheek. She states she was at the urgent care prior to arrival and she was told that they did not have the equipment to look inside of her mouth. She not had any systemic signs or symptoms. She has a little bit of erythema under her nose which is new. She states this is underneath her oxygen nasal cannula. Prior similar symptoms: No Recent Illness/Hospitalization: No - Past Medical History (1) Atherosclerotic heart disease of [place] coronary artery without angina pectoris Status: Chronic (2) COPD (chronic obstructive pulmonary disease) Status: Chronic (3) Diabetes mellitus type 2 in obese Status: Chronic Past Medical History - Allergies and Home Meds Allergies/Adverse Reactions: Allergies ciprofloxacin [From Cipro] Allergy (Verified 07/04/20 09:54) Hives latex Allergy (Verified 07/04/20 09:54) matos me niacin [From Niaspan Extended-Release] Allergy (Verified 07/04/20 09:54) Hives ondansetron [From Zofran] Allergy (Verified 07/04/20 09:54) Unknown Xanthines Allergy (Verified 07/04/20 09:54) Unknown orphenadrine citrate [From Norgesic] Adverse Reaction (Verified 07/04/20 09:54) groggy medical tape Adverse Reaction (Uncoded 08/11/19 10:11) blisters Primary Care Physician: Bhupendra Oliveira MD [Primary Care Provider] - Prior records reviewed: Yes Past Medical History: None - Reviewed in problem list Surgical History: angioplasty, cholecystectomy, herniorrhaphy, hysterectomy, - - tubal ligation. Lives: Alone Smoking Status: Unknown if ever smoked Alcohol: None Drugs: None - Family History Sibling Family History: Family History (Last Reviewed 07/04/20 @ 10:31 by Uma MORA, PA) Mother CAD (coronary artery disease) Father CAD (coronary artery disease) Brother CAD (coronary artery disease) Sister Hypertension Sister Diabetes Sister Heart disease Family History: Reports: COPD - in sister. Maternal Family History: Family History (Last Reviewed 07/04/20 @ 10:31 by Uma MORA, PA) Mother CAD (coronary artery disease) Father CAD (coronary artery disease) Brother CAD (coronary artery disease) Sister Hypertension Sister Diabetes Sister Heart disease Family History: Reports: No pertinent history Paternal Family History: Family History (Last Reviewed 07/04/20 @ 10:31 by Uma MORA, PA) Mother CAD (coronary artery disease) Father CAD (coronary artery disease) Brother CAD (coronary artery disease) Sister Hypertension Sister Diabetes Sister Heart disease Family History: Reports: Heart Disease, Stroke - age 62 Offspring Family History: Family History (Last Reviewed 07/04/20 @ 10:31 by Uma MORA, PA) Mother CAD (coronary artery disease) Father CAD (coronary artery disease) Brother CAD (coronary artery disease) Sister Hypertension Sister Diabetes Sister Heart disease Family History: Reports: No pertinent history - 5 children, 32 grand children and great grandchildren Review of Systems General: Denies: Chills, Fever, Sweats Eyes: Denies: Visual changes - bilaterally, Diplopia ENT: Denies: Rhinorrhea, Sore throat Cardiovascular: Denies: Chest pain, Palpitations Respiratory: Denies: Dyspnea, Cough, Dyspnea on exertion Gastrointestinal: Denies: Abdominal pain, Nausea, Vomiting, Diarrhea, Melena, Hematochezia Genitourinary: Reports: Dysuria Musculoskeletal: Denies: Myalgias, Back pain, Extremity Pain Skin: Reports: Rash - Upper lip under the nose Neurological: Denies: Headache, Weakness, Numbness Physical Exam Vital Signs/Narrative: Vital Signs Temp Pulse Resp BP Pulse Ox 08/30/20 16:25 98.6 F 77 18 113/58 L 99 General: Obese, No Acute Distress Head: Normocephalic, Atraumatic Eyes: Perrl, EOMI ENT: Moist mucous membranes, No rhinorrhea, - - Patient is a dentulous. Gingiva are normal. Buccal mucosa is normal. There is a small area of erythema above the left upper lip under the opening of the left nare which is tender to palpation. The upper lip is slightly swollen on the left side. Neck: Supple Cardiovascular: Regular rate, Regular rhythm Respiratory: No distress, CTA bilaterally Extremities: Nontender, No edema Skin: - - See ENT. Negative for: Cyanosis, Diaphoresis Neurological: Alert, Oriented x3 Psychological: Normal affect, Normal Mood Diagnostic/Tx/Re-eval - Medical Decision Making Patient examined for her upper lip pain and swelling. There appears to be a small area of cellulitis under the nose on the left side. This is what is making her lips feel little swollen. She is not had any systemic signs or symptoms. Otherwise her physical exam is unremarkable. I will start the patient on Keflex. She was given her first dose as well as Tylenol in the ED. Patient is given return precautions. Impression: 1. Facial cellulitis ED Disposition - Plan for ED Patient: Disposition: Home or Assisted Living Instructions: ED Cellulitis, Facial Referrals: Bhupendra Oliveira MD [Primary Care Provider] -
[2020-08-30] MEDS: Cephalexin 250 MG Capsule 500 MG PO (18:09)
[2020-08-30] MEDS: Acetaminophen 325 MG Tablet 650 MG PO (18:10)
== END 2020-08-30 18:32 | disposition home or self-care (01) ==
LOC: ED 18:26
PROVIDERS: Emergency Provider Student in an Organized Health Care Education/Training Program; PCP Family Medicine
DX: L03.211 Cellulitis of face (principal); I25.10 Atherosclerotic heart disease of native coronary artery without angina pectoris; J44.9 Chronic obstructive pulmonary disease, unspecified; E11.9 Type 2 diabetes mellitus without complications; E66.9 Obesity, unspecified; Z79.01 Long term (current) use of anticoagulants; Z79.82 Long term (current) use of aspirin; Z79.4 Long term (current) use of insulin; Z79.899 Other long term (current) drug therapy
CPT/HCPCS: 99284

== ENCOUNTER 2020-10-24 17:20 | Emergency (ER) | payer MEDICARE, MEDICAID, SELFPAY ==
[2020-09-25 11:48] VITALS: BMI 37.1
[2020-10-24 17:21] VITALS: BP 116/67; PULSE 55; RESP 19; TEMP 36.2; O2SAT 100; BMI 36.6
--- NOTE | 2020-10-24 17:41 | EKG12_ITS ---
Test Reason : SOB Blood Pressure : / mmHG Vent. Rate : 056 BPM Atrial Rate : 056 BPM P-R Int : 192 ms QRS Dur : 082 ms QT Int : 454 ms P-R-T Axes : 069 -11 015 degrees QTc Int : 438 ms Sinus bradycardia Low Voltage QRS Confirmed by EMILY ABRAHAM, NORA ([id number]), material expeditor SKYE TALLEY ([id number]) on 10/26/2020 9:47:41 AM Referred By: VIVIEN Confirmed By:NORA DIAZ MD
[2020-10-24 18:33] LABS: Mucous, Urine 0 SEEN /hpf (<or=2+)
[2020-10-24 18:38] LABS: Color, Urine Yellow (Yellow); Glucose, Dipstick Normal (Normal); Ketone-Dipstick Negative (Negative); Leukocyte Esterase-Dipstick 500 /ul (Negative); Nitrite-Dipstick Negative (Negative); Occult Blood-Urine Negative /ul (Negative); Protein-Dipstick Negative (Negative); Urine Bilirubin Dipstick Negative (Negative); Urine Clarity Clear (Clear); Urine Urobilinogen Normal (Normal)
[2020-10-24 18:50] LABS: Red Blood Cells-Urine 0 SEEN /hpf (0-5); Squamous Epithelial Cells - UA 5-10 SEEN /hpf (5-10); Transitional Epithelial - Ur 0-5 SEEN /hpf (0-5); White Blood Cells 25-50 SEEN /hpf (0-5)
[2020-10-24 18:52] LABS: Bacteria 1+ /hpf (None Seen); Hyaline Cast 5-10 SEEN /lpf (0-5)
--- NOTE | 2020-10-24 19:19 | CT_ITS ---
STUDY: CT BRAIN WITHOUT CONTRAST REASON FOR EXAM: Female, 65 years old. HEADACHE WITH INCREASE SOB, COUGH,N/V/D AND BACK PAIN RADIATION DOSAGE (If Supplied By Facility): CTDIvol = ( 44.99 ) mGy, DLP = ( 762.36 ) mGycm TECHNIQUE: Transaxial CT imaging of the brain was performed without administration of intravenous contrast material. Individualized dose optimization techniques were used for this CT. COMPARISON: 12/01/2018 FINDINGS: Normal soft tissue structures. Normal calvarium. Normal size ventricles and extra-axial spaces for the patient''s age. Normal white matter tracts of the cerebral hemispheres. Normal basal ganglia and thalami. Normal brainstem. Normal cerebellum. There is no intracranial hemorrhage. There are no findings of an acute ischemic infarction. Normal visualized paranasal sinuses. CT/Brain/Head without Contrast IMPRESSION: Normal unenhanced CT scan of the brain. Electronically Signed: Rashaun Glasgow DO at 19:42 EST Tel [phone], Service support ,
--- NOTE | 2020-10-24 19:20 | RAD_ITS ---
STUDY: X-RAY CHEST REASON FOR EXAM: Female, 65 years old. PT WITH INCREASED SOB, COUGH, N/V/D, AND BACK PAIN. TECHNIQUE: Frontal view COMPARISON: 08/30/2019 FINDINGS: The lungs are expanded. There is a focal right basilar infiltrate. Cardiomegaly. Normal mediastinum and tracie. Normal visualized pulmonary arteries. Normal visualized aortic arch and descending thoracic aorta. Degenerative changes of the thoracic spine. Normal visualized ribs, clavicles, and shoulders. There is no demonstrated abnormality of the visualized soft tissue structures of the upper abdomen. RAD/Chest 1 View (Portable) IMPRESSION: Focal right basilar infiltrate. Electronically Signed: Rashaun Glasgow DO at 20:03 EST Tel [phone], Service support ,
--- NOTE | 2020-10-24 21:07 | ED.RN ---
unable to get blood drawn, dr galvan did a right groin fem stick
[2020-10-24 21:08] VITALS: BP 111/67; PULSE 53; RESP 18; O2SAT 100
[2020-10-24] MEDS: fentaNYL 100 MCG/2 ML Ampul 50 MCG IM (21:35)
[2020-10-24] MEDS: levoFLOXacin 750 MG Tablet PO (21:36)
[2020-10-24 21:44] LABS: Absolute Lymphocyte Count 0.97 X10^3/uL (0.83-4.51); Absolute Neutrophil Count 5.9 X10^3/uL (2.0-7.7); Basophil# 0.02 X10^3/uL; Basophil% 0.3 % (0-1); Eosinophil# 0.16 X10^3/uL; Hematocrit 31.4 % (37-47); Hemoglobin 9.7 g/dL (12.0-15.0); Lymphocyte # 0.97 X10^3/ul (4.0); Lymphocyte % 12.2 % (19-41); Mean Corp Hgb Conc 30.9 g/dL (32-36); Mean Corpuscular Hgb 30.1 pg (27.0-32.0); Mean Corpuscular Volume 97.5 fL (81-99); Mean Platelet Vol. 10.7 fl (6.2-12.0); Monocyte# 0.85 X10^3/uL; Monocyte% 10.7 % (0-10); NRBC Flagged by Analyzer 0 % (0-5); Neutrophil # 5.91 X10^3/uL (2.7-7.7); Neutrophil % 74.4 % (47-70); Platelet Count 150 K/mm3 (150-450); RBC Distribution Width CV 14.4 % (11.6-14.6); RBC Distribution Width SD 51.1 fl (35.1-43.9); Red Blood Count 3.22 M/mm3 (4.2-5.4); White Blood Count 7.9 K/mm3 (4.4-11.0)
[2020-10-24 22:02] LABS: ALB/GLOB Ratio 0.9 RATIO (0.9-2.4); AST(SGOT) 19 U/L (15-37); Alanine Aminotransfer ALT/SGPT 15 U/L (13-56); Albumin, Serum 3.1 g/dL (3.2-5.0); Alkaline Phosphatase 39 U/L (45-117); Anion Gap 4 (5-15); BUN 28 mg/dL (7-18); BUN/Creat Ratio 24.6 RATIO (10-20); Calcium,Total 8.5 mg/dL (8.5-10.1); Chloride 107 mmol/L (98-107); Creatinine, Serum 1.14 mg/dL (0.55-1.02); EST Glomerular Filtration Rate 51 mL/min (>60); Est Glom Filt Rate - Afr Amer 61 mL/min (>60); Estimated Creatinine Clearance 38.91 ml/min; Globulin 3.6 g/dL (2.2-4.2); Glucose 61 mg/dL (74-106); Potassium 4.2 mmol/L (3.5-5.1); Protein, Total 6.7 g/dL (6.4-8.2); Sodium Level 140 mmol/L (136-145)
[2020-10-24 22:14] LABS: Lactic Acid 1.7 mmol/L (0.4-1.9)
[2020-10-24 22:18] LABS: BNP,B-Type NATRIURETIC PEPTIDE 179.3 pg/mL (0-100)
--- NOTE | 2020-10-24 22:41 | ED.DCSUM_ITS ---
- ER Visit Summary Date of Service: 10/24/20 Chief Complaint: Weakness History of Present Illness: The patient is a [address] Blake and Dr. Ramsey. Patient reports that she has weakness that began yesterday. States that she has not had a fever, but she does have chills. She reports that she has an occasional cough that is nonproductive. She has shortness of breath that is chronic, but worsened yesterday. She reports that she has chest pain that began earlier today while she was at [facility]. It was 5 out of 10 at worst and is 10-10 currently. There was no change with nitro. It is increased with walking or deep breaths. Patient reports that she has been nauseated and vomited 3 times. No blood in her emesis. She had a little tiny bit of diarrhea. No blood in her stools. She also complains of dysuria and frequency. Physical Examination: Vitals: 97.1, 116/67, 55, 19, 100% on 3 L nasal cannula which is her home O2.. General: Well-nourished and well-developed. Head: Normocephalic atraumatic. Neck: Supple, no lymphadenopathy. No JVD. Nontender. Cardiovascular: Regular rate and rhythm. No murmurs. Heart sounds are distant. Respiratory: No respiratory distress. Clear to auscultation bilaterally. Abdominal: Soft, nontender, nondistended, normal bowel sounds. No guarding, rebound, or peritoneal signs. Back: Nontender. Extremities: Nontender, 1+ pitting edema lower extremities bilaterally. Skin: Normal color, no rash. Neurologic: Alert and oriented ?3. Cranial nerves II through XII are intact. Normal strength and sensation. Psych: Normal affect. Test Results: EKG shows sinus bradycardia rate of 56 with no acute changes. COVID-19 is negative. CBC shows an H&H 9.7 31.4, stable neutrophils 74, lymphocytes 12. 7 shows a glucose 61, BUN 28, creatinine 1.14. LFTs show an albumin of 3.1 and alk phos of 39. UA shows 25-50 white blood cells and 5-10 epithelial cells with 1+ bacteria. Troponin is 0.016. BNP is 179. Clinical Impression(s) from Imaging Studies Brain CT 10/24/20 19:19 IMPRESSION: Normal unenhanced CT scan of the brain. Electronically Signed: Rashaun Glasgow, at 19:42 EST Tel [phone], Service support , Chest X-Ray 10/24/20 19:20 IMPRESSION: Focal right basilar infiltrate. Electronically Signed: Rashaun Glasgow DO at 20:03 EST Tel [phone], Service support , Emergency Department Course and Treatment: Multiple attempts were made at an IV without success. The patient was given a dose of Levaquin p.o. which she has kept down for hours without any difficulty. She was given a dose of fentanyl IM. She feels well and would like to go home. Treatment Plan: The patient's curb 65 score is 2. Her port score is 55 making her class II. She did not have any reaction to the Levaquin although she lists Cipro as an allergy with resultant hives. Patient has oxygen at home. She is not hypoxic. She had a glucose of 61 but then drank a Sprite and ate cookies while here. I feel that it is reasonable plan to try outpatient treatment of this at home with Levaquin. She is instructed to follow-up with her primary care physician in 1 to 2 days if not improving. Return to the emergency department for any worsening symptoms. Disposition: To home in improved and stable condition. Impression: 1. Pneumonia. 2. COPD on home oxygen. 3. Anemia. 4. Hypoglycemia. This note was generated with [employer] dictation software. It may contain incorrect words, spelling, and punctuation that were not noted in review of the chart prior to signing ED Disposition - Plan for ED Patient: Disposition: Home or Assisted Living Instructions: ED Pneumonia (Adult) Prescriptions: Levofloxacin [Levaquin] 750 mg PO DAILY #7 tab Prescription Printed proMETHazine tablet [Phenergan] 25 mg PO Q6H PRN PRN #10 tab PRN Reason: Nausea Prescription Printed Referrals: Bhupendra Oliveira MD [Primary Care Provider] - 1-2 Days if not improving
[2020-10-24 23:10] VITALS: BP 106/57; PULSE 61; RESP 20; O2SAT 98
== END 2020-10-24 23:17 | disposition home or self-care (01) ==
LOC: ED 19:00
PROVIDERS: Emergency Provider Emergency Medicine; PCP Family Medicine
DX: J18.9 Pneumonia, unspecified organism (principal); J44.0 Chronic obstructive pulmonary disease with (acute) lower respiratory infection; I25.10 Atherosclerotic heart disease of native coronary artery without angina pectoris; R06.02 Shortness of breath; E11.649 Type 2 diabetes mellitus with hypoglycemia without coma; Z20.822 Contact with and (suspected) exposure to COVID-19; E11.9 Type 2 diabetes mellitus without complications; R30.0 Dysuria; R35.0 Frequency of micturition; D64.9 Anemia, unspecified; G47.33 Obstructive sleep apnea (adult) (pediatric); Z99.81 Dependence on supplemental oxygen; Z79.01 Long term (current) use of anticoagulants; Z79.82 Long term (current) use of aspirin; Z79.4 Long term (current) use of insulin; Z79.899 Other long term (current) drug therapy; Z86.718 Personal history of other venous thrombosis and embolism
CPT/HCPCS: 70450; 71045; 80053; 81001; 83605; 83880; 84484; 85025; 87040; 87086; 87088; 87186; 87426; 93005; 96374; 99284

== ENCOUNTER 2020-10-25 14:56 | Observation (INO) | payer MEDICARE, MEDICAID, SELFPAY ==
[2020-10-24 17:21] VITALS: BMI 36.6
[2020-10-25] VITALS (13 sets, daily range): BP systolic 97–147; BP diastolic 37–75; PULSE 51–64; RESP 16–24; TEMP 36.1–36.9; O2SAT 97–100; BMI 38.7; BMI 38.8; BMI 36.8
--- NOTE | 2020-10-25 14:59 | CT_ITS ---
STUDY: CTA HEAD AND NECK WITH CONTRAST REASON FOR EXAM: Female, 65 years old. CVA RADIATION DOSAGE (If Supplied By Facility): CTDIvol = ( 14.79 ) mGy, DLP = ( 498.54 ) mGycm TECHNIQUE: CT angiography was performed with a multi-detector CT scanner. Data acquisition was obtained from the skull base through the vertex following intravenous administration of IV 100ML ISOVUE 370. MIP images were reconstructed from the axial data set. Post-processing of the angiographic images was performed, with multiplanar reformation and 3D reconstruction. Individualized dose optimization techniques were used for this CT. COMPARISON: No relevant priors. FINDINGS: Normal bilateral petrous carotid arteries. Normal right cavernous carotid artery with a normal supraclinoid bifurcation. Normal left cavernous carotid artery with a normal supraclinoid bifurcation. Normal right A1 segments of the anterior cerebral artery. Normal left A1 segments of the anterior cerebral artery. Normal intact anterior communicating artery (ACOM). Normal bilateral A2 segments of the anterior cerebral arteries. Normal right M1 and M2 segments of the middle cerebral arteries, with a normal M1 bifurcation. Normal left M1 and M2 segments of the middle cerebral arteries, with a normal M1 bifurcation. Normal right posterior communicating artery (PCOM). Normal left posterior communicating artery (PCOM). Normal bilateral vertebral arteries. Normal basilar artery with a normal basilar bifurcation. The visualized bilateral superior cerebellar (SCA) arteries are normal. Normal bilateral P1, P2 and visualized P3 segments of the posterior cerebral arteries. There is no demonstrated aneurysm of the [place]. AORTIC ARCH: There is a bovine origin of the great vessels arising from the aortic arch with a common origin of the brachiocephalic and left common carotid artery. Normal origin of the left subclavian artery. Atherosclerotic plaque at the origin of the left subclavian artery and left common carotid artery. RIGHT CAROTID ARTERIES: Normal right common carotid artery (CCA). Normal right common carotid bulb. Normal origin of the right internal carotid (ICA) artery without a hemodynamically significant stenosis. Normal visualized cervical portion of the right internal carotid artery. Normal origin of the right external carotid artery (ECA). LEFT CAROTID ARTERIES: Normal left common carotid artery (CCA). Normal left common carotid bulb. Normal origin of the left internal carotid (ICA) artery without a hemodynamically significant stenosis. Normal visualized cervical portion of the left internal carotid artery. Normal origin of the left external carotid artery (ECA). VERTEBRAL ARTERIES: Normal bilateral vertebral arteries. CT/STROKE CTA Head AND Neck W/Con IMPRESSION: Normal CTA Head and neck with contrast. N.B. : The above information has been verbally conveyed by Bentley Montejo MD to [facility] on 10/25/2020 15:53:40 (ET). Electronically Signed: Bentley Montejo MD at 15:54 EST , Service support ,
--- NOTE | 2020-10-25 14:59 | EKG12_ITS ---
Test Reason : STROKE TEAM Blood Pressure : / mmHG Vent. Rate : 054 BPM Atrial Rate : 054 BPM P-R Int : 176 ms QRS Dur : 092 ms QT Int : 502 ms P-R-T Axes : 073 -10 063 degrees QTc Int : 476 ms Sinus bradycardia Nonspecific ST/T wave abnormality Confirmed by EMILY ABRAHAM, NORA ([id number]), online editor SKYE TALLEY ([id number]) on 10/27/2020 11:05:48 AM Referred By: HANNAH Confirmed By:NORA DIAZ MD
--- NOTE | 2020-10-25 14:59 | CT_ITS ---
STUDY: CT HEAD STROKE PROTOCOL W/O CONTRAST INJECTION REASON FOR EXAM: Female, 65 years old. CVA RADIATION DOSAGE (If Supplied By Facility): CTDIvol = ( 44.99 ) mGy, DLP = ( 762.36 ) mGycm TECHNIQUE: Transaxial CT imaging of the brain was performed without administration of intravenous contrast material. Individualized dose optimization techniques were used for this CT. COMPARISON: Comparison is made with prior study dated 10/24/2020. FINDINGS: Normal soft tissue structures. Normal calvarium. There is mild cerebral atrophy with widening of the extra-axial spaces and ventricular dilatation. Normal white matter tracts of the cerebral hemispheres. Normal basal ganglia and thalami. Normal brainstem. Normal cerebellum. There is no intracranial hemorrhage. There are no findings of an acute ischemic infarction. Mild degree of mucosal thickening of the right maxillary and right ethmoid sinus. CT/STROKE Brain/Head without Cont IMPRESSION: Chronic involutional changes of the brain. N.B. : The above information has been verbally conveyed by Bentley Montejo MD to [facility] on 10/25/2020 15:12:56 (ET). Electronically Signed: Bentley Montejo MD at 15:14 EST , Service support ,
--- NOTE | 2020-10-25 15:00 | CM.ED ---
SOCIAL WORK Stroke Alert Responded to Stroke Alert. No family present at this time. Will remain available for needs. Magalie Gallegos, SENIOR LICENSING MANAGER, DOPSTER
[2020-10-25 15:27] LABS: Absolute Lymphocyte Count 0.95 X10^3/uL (0.83-4.51); Basophil# 0.01 X10^3/uL; Basophil% 0.2 % (0-1); Eosinophil# 0.25 X10^3/uL; Eosinophils% 4.3 % (0-5); Hematocrit 32.6 % (37-47); Lymphocyte # 0.95 X10^3/ul (4.0); Lymphocyte % 16.2 % (19-41); Mean Corp Hgb Conc 30.7 g/dL (32-36); Mean Corpuscular Hgb 30.8 pg (27.0-32.0); Mean Corpuscular Volume 100.3 fL (81-99); Mean Platelet Vol. 10.1 fl (6.2-12.0); Monocyte# 0.67 X10^3/uL; Monocyte% 11.4 % (0-10); NRBC Flagged by Analyzer 0 % (0-5); Neutrophil # 3.96 X10^3/uL (2.7-7.7); Neutrophil % 67.6 % (47-70); Platelet Count 149 K/mm3 (150-450); RBC Distribution Width CV 14.5 % (11.6-14.6); RBC Distribution Width SD 52.4 fl (35.1-43.9); Red Blood Count 3.25 M/mm3 (4.2-5.4); White Blood Count 5.9 K/mm3 (4.4-11.0)
--- NOTE | 2020-10-25 15:37 | ED.RN ---
pt appears sleepy, will fall asleep during nih
[2020-10-25 15:49] LABS: Anion Gap 6 (5-15); BUN 28 mg/dL (7-18); BUN/Creat Ratio 19.4 RATIO (10-20); Calcium,Total 8.8 mg/dL (8.5-10.1); Chloride 106 mmol/L (98-107); Creatinine, Serum 1.44 mg/dL (0.55-1.02); EST Glomerular Filtration Rate 39 mL/min (>60); Est Glom Filt Rate - Afr Amer 47 mL/min (>60); Estimated Creatinine Clearance 30.81 ml/min; Glucose 118 mg/dL (74-106); Potassium 4.6 mmol/L (3.5-5.1); Sodium Level 140 mmol/L (136-145)
--- NOTE | 2020-10-25 15:55 | ED.VISSUMM ---
- ER Visit Summary Date of Service: 10/25/20 Chief Complaint: Dysarthria History of Present Illness: The patient is a 65 F presenting with slurred speech. Her symptoms started 1 hour prior to arrival. Prehospital stroke team was called. Patient was seen in the ED last night and diagnosed with pneumonia. She was started on Levaquin. She had a negative Covid at that time. Today she started having slurred speech and trouble following commands. She was confused. Family thought it may be her blood sugar. Her blood sugar per EMS was 155. She is on Eliquis for history of A. fib. Test Results: Vitals are stable. Patient is afebrile. Alert no acute distress. HEENT exam is unremarkable. Neck is supple. Lungs are clear and equal bilaterally. Heart is regular rate and rhythm. Abdomen is soft nontender nondistended. Extremities are unremarkable. Skin is warm and dry. Mild dysarthria Remainder of exam is unremarkable. Emergency Department Course and Treatment: Patient was taken straight to CT on arrival. Noncontrast head CT shows chronic changes. [facility] neurology was consulted. CBC normal except hemoglobin 10.0. Chemistries unremarkable other than BUN 28, creatinine 1.44. Troponin is negative. CTA head and neck show Normal CTA Head and neck with contrast. [facility] neurology recommends admission for stroke work-up. Will discuss with hospitalist for admission. Urine culture from yesterday shows E. coli. She was given Rocephin IV. Disposition: Admission Impression: Dysarthria, UTI This note was generated with [employer] dictation software. It may contain incorrect words, spelling, and punctuation that were not noted in review of the chart prior to signing ED Disposition - Plan for ED Patient: Referrals: Bhupendra Oliveira MD [Primary Care Provider] -
--- NOTE | 2020-10-25 16:00 | RAD_ITS ---
STUDY: X-RAY CHEST REASON FOR EXAM: Female, 65 years old. SLURRED SPEECH. DX WITH PNEUMONIA LAST NIGHT. TECHNIQUE: Frontal view COMPARISON: 10/24/2020 FINDINGS: The lungs are expanded. Increasing interstitial densities bilaterally with worsening patchy infiltrates. Cardiomegaly. Normal mediastinum and tracie. Normal visualized pulmonary arteries. Normal visualized aortic arch and descending thoracic aorta. Degenerative changes of the thoracic spine. Normal visualized ribs, clavicles, and shoulders. There is no demonstrated abnormality of the visualized soft tissue structures of the upper abdomen. RAD/Chest 1 View IMPRESSION: Increasing interstitial densities bilaterally with worsening patchy infiltrates. Electronically Signed: Rashaun Glasgow DO at 16:31 EST Tel [phone], Service support ,
--- NOTE | 2020-10-25 16:07 | CHAPLAIN ---
Type of Pastoral Visit ___ Initial Visit ___ Follow-up Visit ___ On-call Visit ___ General Patient Visit ___ Spiritual Assessment ___ Family Conference ___ Bereavement _x__ Rapid Response ___ Code Blue ___ Other (describe below) Pastoral Care Referral From ___ Patient ___ Family ___ Nurse ___ Physician ___ Supervisor [employer] ___ Acoustical Engineer _x__ Other (describe below) Sacrament/Intervention ___ Active listening ___ Anointing ___ Orthodox ___ Bereavement ___ Communion ___ Eileen exploration ___ ___ Life review ___ Prayer ___ Reconciliation ___ Sacrament of Sick ___ Supportive presence ___ Wedding ___ Other (describe below) Pastoral Comments no family was present but was available for patient support
--- NOTE | 2020-10-25 16:09 | PCM.HP.STD ---
<Rosa Hanna ALTERATION SPECIALIST - Last Filed: 10/25/20 16:56> Problem List (1) Abnormal stress test Status: Chronic (2) Presence of stent in coronary artery Status: Chronic Comment: PCI/Stent to the prox 1st Diag branch 12/07/2003 (3) Mixed hyperlipidemia Status: Chronic (4) Atherosclerotic heart disease of [place] coronary artery without angina pectoris Status: Chronic (5) Essential hypertension Status: Chronic (6) Paroxysmal A-fib Status: Chronic (7) Diabetes mellitus type 2 in obese Status: Chronic (8) Hypothyroidism Status: Chronic (9) GERD (gastroesophageal reflux disease) Status: Chronic Qualifiers: Esophagitis presence: esophagitis presence not specified Qualified Code(s): K21.9 - Gastro-esophageal reflux disease without esophagitis (10) COPD (chronic obstructive pulmonary disease) Status: Chronic Qualifiers: COPD type: unspecified COPD Qualified Code(s): J44.9 - Chronic obstructive pulmonary disease, unspecified (11) Chronic respiratory insufficiency Status: Chronic Comment: On home oxygen at night (12) PARESH (obstructive sleep apnea) Status: Chronic Comment: non-complaint with CPAP History of Present Illness Date of Admission: 10/25/20 Chief Complaint: Drowsiness, slurred speech. The patient is a 65 year old F who presents to the emergency room due to drowsiness, generalized weakness and slurred speech. Patient states her home health aide noticed slurred speech and confusion and was referred to the emergency room. Patient is not confused on assessment however appears fatigued. Neuro exam normal. She does report some dysuria and suprapubic discomfort. Denies fever, chills. Denies nausea, vomiting, diarrhea. Denies shortness of breath. She is on chronic supplemental oxygen and currently on baseline home O2 requirements. She has a past medical history of chronic atrial fibrillation on anticoagulation with Eliquis, COPD with chronic hypoxic respiratory failure, hypertension, hyperlipidemia, hypothyroidism, CAD with history of PCI, type 2 diabetes mellitus, history of VTE, GERD, obesity, anxiety, depression, PARESH. Past Medical History Past Medical History (Chronic Problems): Chronic Problems (Last Reviewed 08/31/20 @ 14:58 by Janessa Mooney) Abnormal stress test (Chronic) Presence of stent in coronary artery (Chronic ~12/07/03) PCI/Stent to the prox 1st Diag branch 12/07/2003 Mixed hyperlipidemia (Chronic) Atherosclerotic heart disease of [place] coronary artery without angina pectoris (Chronic) Essential hypertension (Chronic) Paroxysmal A-fib (Chronic) Diabetes mellitus type 2 in obese (Chronic) Hypothyroidism (Chronic) GERD (gastroesophageal reflux disease) (Chronic) COPD (chronic obstructive pulmonary disease) (Chronic) Chronic respiratory insufficiency (Chronic) On home oxygen at night PARESH (obstructive sleep apnea) (Chronic) non-complaint with CPAP Medical History: Medical History (Last Reviewed 08/31/20 @ 14:58 by Janessa Mooney) Presence of stent in coronary artery (Chronic) Onset Date: ~12/07/03 Z95.5 PCI/Stent to the prox 1st Diag branch 12/07/2003 Mixed hyperlipidemia (Chronic) E78.2 Atherosclerotic heart disease of [place] coronary artery without angina pectoris (Chronic) I25.10 Essential hypertension (Chronic) I10 Paroxysmal A-fib (Chronic) I48.0 Diabetes mellitus type 2 in obese (Chronic) E11.9, E66.9 Hypothyroidism (Chronic) E03.9 GERD (gastroesophageal reflux disease) (Chronic) K21.9 COPD (chronic obstructive pulmonary disease) (Chronic) J44.9 Chronic respiratory insufficiency (Chronic) R06.89 On home oxygen at night PARESH (obstructive sleep apnea) (Chronic) G47.33 non-complaint with CPAP DDD (degenerative disc disease) Gastroparesis K31.84 History of DVT (deep vein thrombosis) Z86.718 Pulmonary embolism I26.99 History of cervical cancer Z85.41 Lung nodule R91.1 RLS (restless legs syndrome) G25.81 Allergies ciprofloxacin [From Cipro] Allergy (Verified 10/24/20 17:21) Hives latex Allergy (Verified 10/24/20 17:21) matos me niacin [From Niaspan Extended-Release] Allergy (Verified 10/24/20 17:21) Hives ondansetron [From Zofran] Allergy (Verified 10/24/20 17:21) Unknown Xanthines Allergy (Verified 10/24/20 17:21) Unknown orphenadrine citrate [From Norgesic] Adverse Reaction (Verified 10/24/20 17:21) groggy medical tape Adverse Reaction (Uncoded 10/24/20 17:21) blisters Home Medications: Ambulatory Orders Medication Instructions Recorded Atorvastatin Calcium [Lipitor] 40 mg PO QHS 02/03/18 Duloxetine Hcl [Cymbalta] 60 mg PO DAILY 02/03/18 Insulin Lispro [Humalog KwikPen] 20 unit SQ LUNCH 02/03/18 Insulin Lispro [Humalog KwikPen] 24 unit SQ DINNER 02/03/18 Insulin Lispro [Humalog] 14 unit SQ BREAKFAST 02/03/18 Levothyroxine [Synthroid] 100 mcg PO DAILY 02/03/18 Apixaban [Eliquis] 2.5 mg PO BID 05/17/18 Ascorbic Acid [Vitamin C] 500 mg PO DAILY@1700 05/17/18 Aspirin E.C. [Ecotrin] 81 mg PO DAILY@1700 09/02/18 docusate sodium 100 mg capsule 100 mg PO QHS cap 06/08/19 fluticasone propionate 50 2 spray INTRANASAL DAILY 06/08/19 mcg/actuation nasal spray,suspension potassium chloride 10 mEq 10 meq PO DAILY 06/08/19 tablet,extended release allopurinol 100 mg tablet 100 mg PO DAILY 08/11/19 buspirone 10 mg tablet 10 mg PO BID 08/11/19 Losartan Potassium [Cozaar] 12.5 mg PO DAILY 09/28/19 insulin glargine 100 unit/mL (3 36 unit SC BID ml 12/01/19 mL) subcutaneous pen metformin 500 mg tablet,extended 1,000 mg PO BID tab 12/01/19 release 24 hr metoprolol tartrate 100 mg tablet 100 mg PO BID #60 tab 05/01/20 nitroglycerin 0.4 mg sublingual 0.4 mg SUBLINGUAL Q5-15M PRN #25 07/04/20 tablet tab ranolazine 500 mg tablet,extended 500 mg PO BID #60 tab 07/04/20 release,12 hr isosorbide mononitrate 120 mg 120 mg PO DAILY #90 tab 09/14/20 tablet,extended release 24 hr Fexofenadine HCl [Merlyn Allergy] 180 mg PO DAILY 09/26/20 Furosemide [Lasix] 20 mg PO BID 10/25/20 Omeprazole 40 mg PO DAILY 10/25/20 Surgical History: Surgical History (Last Reviewed 10/25/20 @ 16:10 by Rosa Hanna NP, ALTERATION SPECIALIST-C) Presence of coronary angioplasty implant and graft Onset Date: ~12/07/03 Z95.5 PCI/Stent to the prox 1st Diag branch 12/07/2003 History of cholecystectomy Z90.49 History of hernia repair Z98.890, Z87.19 History of knee surgery Z98.890 History of left heart catheterization (LHC) Onset Date: ~09/28/19 Z98.890 Single vessel CAD of the LCX, occluded very small LCX with Rt/Lt collaterals per cath; Mid LAD 40% stenosis, distal LAD 50% stenosis per cath 12/23/17; LEFT MAIN: Mild luminal irregularities; LEFT ANTERIOR DESCENDING ARTERY: PROX LAD: ecctatic / aneuyrsmal appearing, MID LAD: s/p DX1: 25 % Stenosis, 25 - 50 % Stenosis, DIAGONAL 1: Proximal - Previously placed stent is patent; CIRCUMFLEX ARTERY: OM 1: Proximal - is occluded and fills late, faintly, and partially from left to left and right to left collaterals; RIGHT CORONARY ARTERY: Mild luminal irregularities, PROX RCA: diffuse: eccentric: 25 % Stenosis; RT PDA: Proximal - diffuse: eccentric: 50 % Stenosis, Mid - diffuse: eccentric: 50 % Stenosis; RIGHT AV SEGMENT: distal: 25 % Stenosis per cath 09/28/19 History of nasal surgery Z98.890 History of surgery on wrist Z98.890 History of total abdominal hysterectomy Z90.710 History of tubal ligation Z98.51 Surgical History: angioplasty, cholecystectomy, herniorrhaphy, hysterectomy, - - tubal ligation. Psychiatric History: No pertinent psych hx PROFESSOR OF PHYSICAL EDUCATION History: No pertinent PROFESSOR OF PHYSICAL EDUCATION history Lives: With Family Smoking Status: Former smoker Tobacco Use: Non-smoker Alcohol: None Drugs: None - *Family History Sibling Family History: Family History (Last Reviewed 10/25/20 @ 16:11 by Rosa Hanna NP, ALTERATION SPECIALIST-C) Mother CAD (coronary artery disease) Father CAD (coronary artery disease) Brother CAD (coronary artery disease) Asthma Sister Hypertension Sister Diabetes Sister Heart disease History Items: COPD Maternal Family History: Family History (Last Reviewed 10/25/20 @ 16:11 by Rosa Hanna NP, ALTERATION SPECIALIST-C) Mother CAD (coronary artery disease) Father CAD (coronary artery disease) Brother CAD (coronary artery disease) Asthma Sister Hypertension Sister Diabetes Sister Heart disease History Items: Heart Disease Paternal Family History: Family History (Last Reviewed 02/03/21 @ 16:11 by Rosa Hanna ALTERATION SPECIALIST, ALTERATION SPECIALIST-C) Mother CAD (coronary artery disease) Father CAD (coronary artery disease) Brother CAD (coronary artery disease) Asthma Sister Hypertension Sister Diabetes Sister Heart disease History Items: Heart Disease, Stroke Offspring Family History: Family History (Last Reviewed 10/25/20 @ 16:11 by Rosa Hanna ALTERATION SPECIALIST, ALTERATION SPECIALIST-C) Mother CAD (coronary artery disease) Father CAD (coronary artery disease) Brother CAD (coronary artery disease) Asthma Sister Hypertension Sister Diabetes Sister Heart disease Review of Systems Constitutional: Reports: Weakness, - - Drowsiness. Denies: Chills, Fever, Weight Change HEENT: Denies: Head Aches, Sinus Congestion, Sinus Drainage Cardiovascular: Denies: Chest Pain, Palpitations Respiratory: Denies: Cough, Shortness of breath at rest, Sputum production Gastrointestinal: Denies: Abdominal Pain, Nausea, Vomiting Genitourinary: Denies: Dysuria Musculoskeletal: Denies: Joint Pain, Joint Tenderness Skin: Denies: Rash, Wounds Neurological: Reports: Slurred speech. Denies: Focal weakness, Numbness, Tingling Psychiatric: Denies: Anxiety, Depression, Homicidal Ideations, Suicidal Ideations Hematologic/ Lymphatic: Denies: Easy Bruising, Easy Bleeding VTE Information - Inpt Only VTE Present on Admission: No VTE Mechan Device Prophylaxis: None VTE Pharm Prophylaxis ordered?: No Reason prophylaxis not ordered:: Treatment Not Indicated - Already on anticoagulation with Eliquis - Physical Exam Vitals/I&O's: Vital Signs Temp Pulse Resp BP Pulse Ox 96.9 F L 52 L 24 H 121/61 H 100 10/25/20 15:19 10/25/20 16:08 10/25/20 16:08 10/25/20 16:08 10/25/20 16:08 Oxygen Flow Rate (L/min) 2 Oxygen Delivery Method Room Air Weight: 211 lb 13.828 oz Body Mass Index (BMI) 38.7 Finger Stick Blood Glucose 105 General: Oriented x3, Cooperative, No apparent distress, - - Drowsy during assessment HEENT: Atraumatic, PERRLA, EOMI, Normocephalic Oral: Dry Mucosa Neck: Supple, No JVD, Negative Carotid Bruits Lungs: Clear to auscultation, Diminished Cardiovascular: Regular rate, No murmurs Abdomen: Bowel Sounds Present, Soft, Non Tender, Non-Distended, Obese Extremities: No clubbing, No cyanosis, No edema, Capillary Refill Less than 3 Seconds Skin: No rashes, No breakdown Musculoskeletal: No Tenderness to Palpation of Joints or Extremities Neurological: Cranial nerves II-XII grossly intact, Neuro grossly intact Psych/Mental Status: Normal Affect, Appropriate Laboratory Results 10/25/20 15:15: WBC 5.9, RBC 3.25 L, Hgb 10.0 L, Hct 32.6 L, MCV 100.3 H, MCH 30.8, MCHC 30.7 L, RDW Std Deviation 52.4 H, RDW Coeff of Aubrey 14.5, Plt Count 149 L, MPV 10.1, Immature Gran % (Auto) 0.300, Neut % (Auto) 67.6, Lymph % (Auto) 16.2 L, Hinds % (Auto) 11.4 H, Eos % (Auto) 4.3, Baso % (Auto) 0.2, Absolute Neuts (auto) 4.0, Absolute Lymphs (auto) 0.95, Nucleated RBC % 0 10/25/20 15:15: PT Pending, INR Pending, APTT Pending 10/25/20 15:15: Sodium 140, Potassium 4.6, Chloride 106, Carbon Dioxide 28.0, Anion Gap 6, BUN 28 H, Creatinine 1.44 H, Estim Creat Clear Calc 30.81, Est GFR (MDRD) Af Amer 47 L, Est GFR (MDRD) Non-Af 39 L, BUN/Creatinine Ratio 19.4, Glucose 118 H, Calcium 8.8, Troponin I < 0.015 Current Medications Ceftriaxone Sodium (Rocephin) 1 gm in 50 mls @ 100 mls/hr IV X1 ONE Stop: 10/25/20 16:36 Assessment/Plan All Active Problems (Last Reviewed 08/31/20 @ 14:58 by Janessa Mooney) Abnormal nuclear stress test (Resolved) Bradycardia (Resolved) Hypokalemia (Resolved) Metabolic alkalosis (Resolved) Pneumonia (Resolved) Septic shock (Resolved) Toxic encephalopathy (Resolved) 1. Acute metabolic encephalopathy suspected secondary to acute UTI and TITI-IV Rocephin pending culture from 10/24/20. Brain CT shows chronic changes. CTA head and neck normal. Patient's neurologic exam is normal. 2. Acute kidney injury-IV fluids, trend BMP. 3. Paroxysmal atrial fibrillation-rate currently controlled. Continue metoprolol and Eliquis. 4. Hypothyroidism-continue Synthroid. 5. Chronic COPD with chronic approximate respiratory failure-no acute exacerbation. PRN albuterol treatments. On baseline home O2 requirements. Continue supplement oxygen to maintain O2 at above 90%. 6. GERD- continue PPI. 7. CAD-continue aspirin, statin, metoprolol, imdur. 8. Anxiety/depression- continue buspar/cymbalta. 9. Hypertension-continue metoprolol, losartan, isosorbide. 10. Hyperlipidemia-continue statin. 11. Type 2 diabetes mellitus-continue home insulin regimen. Accu-Cheks with sliding scale insulin. Hold oral regimen. 12. 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 13. Obesity-encouraged diet and lifestyle modifications. 14. PARESH-noncompliant with CPAP, continue at bedtime if tolerates. DVT prophylaxis- Eliquis This patient was seen by IZABELA Kraus under the supervision of Dr. Gregg. <Michelle Gregg - Last Filed: 10/25/20 18:05> History of Present Illness I agree with the above and the following is representation of my independent history and physical exam. Ms. Figueroa is a 65 year old white F who appears much older than stated age with a PMH of CAD, chronic hypoxic respiratory failure, COPD, DDD, DM 2, HTN, gastroparesis, GERD, history of DVT and PE, hypothyroidism, PARESH, hyperlipidemia, gout, and allergies presented to the emergency department on 10/25/2020 secondary to mental status change, generalized weakness, and slurred speech. Patient reported that her home health aide was over and noticed slurred speech and some increased confusion and called the squad. Upon arrival a stroke team was called. A CT of her head showed no acute processes and only chronic involutional changes of the brain and a CTA performed and was within normal limits. He was seen by the stroke neurologist at [facility] and they recommended completion of the stroke work-up. Upon further review, the patient was in the emergency department yesterday notes with a right lower lobe pneumonia and was given a prescription for Levaquin. She took 1 tablet of Levaquin last night and 1 this morning. Cultures were obtained from the blood and they are pending but urine culture was positive for E. coli. On admissions her vital signs were stable--> she was afebrile with a heart rate 52, BP was within normal limits, and she was satting 97 to 100% on 2 L nasal cannula which is her baseline. Her CBC shows a chronic anemia and mild thrombocytopenia with a platelet count of 149,000. Her chemistry showed normal electrolytes with a mildly elevated BUN and creatinine. Her creatinine was 1.44 and appears at her baseline is around 0.8-0.9 when she is well. The patient states that she has been having some lower abdominal pain as well as some nausea with dry heaves yesterday although this is resolved today and reports that her p.o. intake has been poor. She recently had Covid 19 infection and therefore was not rescreened. Past Medical History Medical History: Medical History (Last Reviewed 08/31/20 @ 14:58 by Janessa Mooney) Presence of stent in coronary artery (Chronic) Onset Date: ~12/07/03 Z95.5 PCI/Stent to the prox 1st Diag branch 12/07/2003 Mixed hyperlipidemia (Chronic) E78.2 Atherosclerotic heart disease of [place] coronary artery without angina pectoris (Chronic) I25.10 Essential hypertension (Chronic) I10 Paroxysmal A-fib (Chronic) I48.0 Diabetes mellitus type 2 in obese (Chronic) E11.9, E66.9 Hypothyroidism (Chronic) E03.9 GERD (gastroesophageal reflux disease) (Chronic) K21.9 COPD (chronic obstructive pulmonary disease) (Chronic) J44.9 Chronic respiratory insufficiency (Chronic) R06.89 On home oxygen at night PARESH (obstructive sleep apnea) (Chronic) G47.33 non-complaint with CPAP DDD (degenerative disc disease) Gastroparesis K31.84 History of DVT (deep vein thrombosis) Z86.718 Pulmonary embolism I26.99 History of cervical cancer Z85.41 Lung nodule R91.1 RLS (restless legs syndrome) G25.81 Allergies ciprofloxacin [From Cipro] Allergy (Verified 10/24/20 17:21) Hives latex Allergy (Verified 10/24/20 17:21) matos me niacin [From Niaspan Extended-Release] Allergy (Verified 10/24/20 17:21) Hives ondansetron [From Zofran] Allergy (Verified 10/24/20 17:21) Unknown Xanthines Allergy (Verified 10/24/20 17:21) Unknown orphenadrine citrate [From Norgesic] Adverse Reaction (Verified 10/24/20 17:21) groggy medical tape Adverse Reaction (Uncoded 10/24/20 17:21) blisters Surgical History: Surgical History (Last Reviewed 10/25/20 @ 16:10 by Rosa Hanna ALTERATION SPECIALIST, ALTERATION SPECIALIST-C) Presence of coronary angioplasty implant and graft Onset Date: ~12/07/03 Z95.5 PCI/Stent to the prox 1st Diag branch 12/07/2003 History of cholecystectomy Z90.49 History of hernia repair Z98.890, Z87.19 History of knee surgery Z98.890 History of left heart catheterization (LHC) Onset Date: ~09/28/19 Z98.890 Single vessel CAD of the LCX, occluded very small LCX with Rt/Lt collaterals per cath; Mid LAD 40% stenosis, distal LAD 50% stenosis per cath 12/23/17; LEFT MAIN: Mild luminal irregularities; LEFT ANTERIOR DESCENDING ARTERY: PROX LAD: ecctatic / aneuyrsmal appearing, MID LAD: s/p DX1: 25 % Stenosis, 25 - 50 % Stenosis, DIAGONAL 1: Proximal - Previously placed stent is patent; CIRCUMFLEX ARTERY: OM 1: Proximal - is occluded and fills late, faintly, and partially from left to left and right to left collaterals; RIGHT CORONARY ARTERY: Mild luminal irregularities, PROX RCA: diffuse: eccentric: 25 % Stenosis; RT PDA: Proximal - diffuse: eccentric: 50 % Stenosis, Mid - diffuse: eccentric: 50 % Stenosis; RIGHT AV SEGMENT: distal: 25 % Stenosis per cath 09/28/19 History of nasal surgery Z98.890 History of surgery on wrist Z98.890 History of total abdominal hysterectomy Z90.710 History of tubal ligation Z98.51 - *Family History Sibling Family History: Family History (Last Reviewed 10/25/20 @ 16:11 by Rosa Hanna ALTERATION SPECIALIST, ALTERATION SPECIALIST-C) Mother CAD (coronary artery disease) Father CAD (coronary artery disease) Brother CAD (coronary artery disease) Asthma Sister Hypertension Sister Diabetes Sister Heart disease Maternal Family History: Family History (Last Reviewed 10/25/20 @ 16:11 by Rosa Jacques ALTERATION SPECIALIST, ALTERATION SPECIALIST-C) Mother CAD (coronary artery disease) Father CAD (coronary artery disease) Brother CAD (coronary artery disease) Asthma Sister Hypertension Sister Diabetes Sister Heart disease Paternal Family History: Family History (Last Reviewed 10/25/20 @ 16:11 by Rosa Hanna ALTERATION SPECIALIST, ALTERATION SPECIALIST-C) Mother CAD (coronary artery disease) Father CAD (coronary artery disease) Brother CAD (coronary artery disease) Asthma Sister Hypertension Sister Diabetes Sister Heart disease Offspring Family History: Family History (Last Reviewed 10/25/20 @ 16:11 by Rosa Hanna ALTERATION SPECIALIST, ALTERATION SPECIALIST-C) Mother CAD (coronary artery disease) Father CAD (coronary artery disease) Brother CAD (coronary artery disease) Asthma Sister Hypertension Sister Diabetes Sister Heart disease Review of Systems Constitutional: Reports: Weakness, Fatigue, -. Denies: Anorexia, Chills, Fever, Night Sweats, Malaise, Weight Change Eyes: Denies: Blurred vision, Conjunctivae Inflammation, Double vision, Drainage, Eyelid Inflammation, Pain, Redness, Vision Change HEENT: Denies: Difficulty Hearing, Difficulty Swallowing, Ear Pain, Eye Pain, Head Aches, Nasal bleeding, Nasal Congestion, Post Nasal Drip, Sinus Congestion, Sinus Drainage, Sore Throat, Visual Changes Cardiovascular: Denies: Chest Pain, Chest Pressure, Edema, Heaviness, Light Headedness, Orthopnea, Palpitations, Paroxysmal Noc. Dyspnea, Syncope Respiratory: Reports: Shortness of Breath - Mild chronic, Shortness of breath upon exertion - Fr[place]. Denies: Cough, Hemoptysis, Pleuritic Pain, Shortness of breath at rest, Sputum production, Wheezing Gastrointestinal: Reports: Nausea - Now resolved, Vomiting - Resolved. Denies: Abdominal Pain, Constipation, Diarrhea, Dyspepsia, Hematemesis, Hematochezia, Melena Genitourinary: Reports: Dysuria, Frequency. Denies: Hematuria, Hesitancy, Incontinence, Nocturia, Retention, Urgency Musculoskeletal: Reports: Back Pain. Denies: Joint Pain, Joint stiffness, Joint swelling, Joint Tenderness, Leg Pain, Muscle pain, Neck Pain Skin: Denies: Dryness, Jaundice, Lesions, Pruritis, Rash, Skin Changes, Wounds Neurological: Reports: Slurred speech - Speech is not baseline. Denies: Balance problems, Blurred vision, Double vision, Change in Speech, Confusion, Difficulty swallowing, Focal weakness, Headaches, Incoordination, Numbness, Tingling, Tremor, Seizures Psychiatric: Denies: Anxiety, Depression Endocrine: Denies: Change in Body Habitus, Heat/ Cold Intolerance, Polydipsia, Polyuria Hematologic/ Lymphatic: Reports: Anemia. Denies: Adenopathy, Easy Bruising, Easy Bleeding, Petechiae, Purpura - Physical Exam Vitals/I&O's: Vital Signs Temp Pulse Resp BP Pulse Ox 97.1 F L 52 L 21 H 97/37 L 97 10/25/20 16:56 10/25/20 17:04 10/25/20 16:56 10/25/20 16:56 10/25/20 16:56 Oxygen Flow Rate (L/min) 2 Oxygen Delivery Method Nasal Cannula Weight: 91.535 kg Body Mass Index (BMI) 36.8 Finger Stick Blood Glucose 105 Intake and Output for Last 24 Hours 10/23/20 10/24/20 10/25/20 23:59 23:59 23:59 Intake Total 50 / 50 Balance 50 / 50 General: Alert, Oriented x3, Cooperative, No apparent distress, Well developed, Well nourished, - - Drowsy during assessment, patient much more awake for my assessment she was alert and oriented x4, could give me a decent history, appears much older than stated age HEENT: Atraumatic, PERRLA, EOMI, Normocephalic, EAC Clear Oral: No Gingival or Mucosal Lesions/ Ulcerations, Dry Mucosa, - - Edentulous, Mallampati 3 Neck: Supple, No JVD, Negative Carotid Bruits, Negative Hepatojugular Reflux, No Nodes, No Nuchal Rigidity, Trachea Midline, Thyroid Normal Size and Texture Lungs: Clear to auscultation, No rhonchi, No wheeze, No rales, Diminished - Fusilli Cardiovascular: Regular rate, Regular Rhythm, Normal S1, Normal S2, No murmurs, No Ectopic Activity, No rub noted, No Gallop, - - Distant cardiac sounds Abdomen: Bowel Sounds Present, Soft, Non Tender, Non-Distended, Obese, - - Large midline incision, no incisional hernia noted Extremities: No clubbing, No cyanosis, No edema, Capillary Refill Less than 3 Seconds, Peripheral Pulses Normal Skin: No rashes, No breakdown, - - Pale, right groin ecchymosis from fem stick done in the emergency department yesterday Musculoskeletal: No Tenderness to Palpation of Joints or Extremities, No Muscle Wasting, Arthritic Changes Lymphatic: No Cervical, Supraclavicular, or Inguinal Adenopathy Neurological: Cranial nerves II-XII grossly intact, Neuro grossly intact Psych/Mental Status: Normal Affect, Appropriate Laboratory Results 10/25/20 15:15: WBC 5.9, RBC 3.25 L, Hgb 10.0 L, Hct 32.6 L, MCV 100.3 H, MCH 30.8, MCHC 30.7 L, RDW Std Deviation 52.4 H, RDW Coeff of Aubrey 14.5, Plt Count 149 L, MPV 10.1, Immature Gran % (Auto) 0.300, Neut % (Auto) 67.6, Lymph % (Auto) 16.2 L, Hinds % (Auto) 11.4 H, Eos % (Auto) 4.3, Baso % (Auto) 0.2, Absolute Neuts (auto) 4.0, Absolute Lymphs (auto) 0.95, Nucleated RBC % 0 10/25/20 15:15: PT 16.8 H, INR 1.4, APTT 36.8 H 10/25/20 15:15: Sodium 140, Potassium 4.6, Chloride 106, Carbon Dioxide 28.0, Anion Gap 6, BUN 28 H, Creatinine 1.44 H, Estim Creat Clear Calc 30.81, Est GFR (MDRD) Af Amer 47 L, Est GFR (MDRD) Non-Af 39 L, BUN/Creatinine Ratio 19.4, Glucose 118 H, Calcium 8.8, Troponin I < 0.015 Current Medications Acetaminophen (Acetaminophen 325 Mg Tablet) 650 mg PO Q6H PRN PRN PRN Reason: Pain Score 1-10/Temp > 100.7 F Allopurinol (Allopurinol 100 Mg Tablet) 100 mg PO DAILY [facility] Apixaban (Apixaban 2.5 Mg Tablet) 2.5 mg PO BID [facility] Aspirin (Aspirin E.C. 81 Mg Tablet) 81 mg PO DAILY@1700 [facility] Atorvastatin Calcium (Atorvastatin Calcium 40 Mg Tablet) 40 mg PO QHS [facility] [facility] Docusate Sodium (Docusate Sodium 100 Mg Capsule) 100 mg PO QHS [facility] Duloxetine HCl (Duloxetine Hcl 60 Mg Capsule) 60 mg PO DAILY [facility] Furosemide (Furosemide 20 Mg Tablet) 20 mg PO BID [facility] Sodium Chloride () 1,000 mls @ 100 mls/hr IV .Q10H [facility] Ceftriaxone Sodium (Rocephin) 1 gm in 50 mls @ 100 mls/hr IV Q24 [facility] Stop: 11/02/20 10:01 Insulin Glargine (Insulin Glargine 100 Units/Ml Pen) 36 units SC BID [facility] Insulin Human Lispro (Insulin Lispro 100 Unit/Ml Insuln.Pen) 20 unit SC LUNCH [facility] Insulin Human Lispro (Insulin Lispro 100 Unit/Ml Insuln.Pen) 24 unit SC DINNER [facility] Isosorbide Mononitrate (Isosorbide Mononitrate 120 Mg Tablet) 120 mg PO DAILY [facility] Levothyroxine Sodium (Levothyroxine 100 Mcg Tablet) 100 mcg PO DAILY [facility] Losartan Potassium (Losartan Potassium 25 Mg Tablet) 12.5 mg PO DAILY [facility] Metoprolol Tartrate (Metoprolol Tartrate 100 Mg Tablet) 100 mg PO BID [facility] Non-Formulary Medication (Buspirone Hcl) 10 mg PO BID [facility] Non-Formulary Medication (Insulin Lispro) 14 unit SQ BREAKFAST [facility] Non-Formulary Medication (Omeprazole) 40 mg PO DAILY [facility] Ondansetron HCl (Ondansetron 4 Mg/2 Ml Vial) 4 mg IV Q8H PRN PRN PRN Reason: NAUSEA/VOMITING Ranolazine (Ranolazine 500 Mg Tablet) 500 mg PO BID [facility] Assessment/Plan ASSESSMENT Acute metabolic encephalopathy E. 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 to trend hemoglobin and platelet counts -Continue home O2/CPAP if patient willing -Continue home insulin regimen, hold oral antihyperglycemic's -PT/OT consultation -Patient is fully anticoagulated on apixaban Inpatient E&M: 70144 In Hosp L3
[2020-10-25 16:13] LABS: International Normalized Ratio 1.4; Prothrombin Time (Protime)PT. 16.8 SECONDS (11.7-14.9)
[2020-10-25 16:14] LABS: Partial Thromboplast Time 36.8 Seconds (24.1-36.2)
[2020-10-25] MEDS: Ceftriaxone 1 GM/50 ML BAG IV (16:20)
--- NOTE | 2020-10-25 17:04 | PCS.PANDOC ---
PANDEMIC DOCUMENTATION INITIATED: Date: 10/25/20 Time: 1816
--- NOTE | 2020-10-25 18:05 | ECHOD_ITS ---
Reason For Study: TIA/CVA Procedure This was a 2D Doppler, Color Flow transthoracic echocardiogram. The study was technically difficult. Due to body habitus & COPD. Unable to utilize Definity for Optimal LV imaging due to increased PAP. Exam performed portable in patient room. Left Ventricle Normal left ventricle. The 3D full volume ejection fraction is 55-60 %. No regional wall motion abnormalities noted. Right Ventricle Moderately dilated right ventricle. Mild global right ventricular systolic dysfunction. Atria The left atrium is mildly enlarged. The right atrium is moderately enlarged. Normal atrial septum. Mitral Valve The mitral valve is structurally normal. No prolapse or stenosis seen. Trivial mitral valve insufficiency. Tricuspid Valve Normal tricuspid valve. Mild to moderate (1-2+) tricuspid valve insufficiency. Aortic Valve Normal aortic valve. No aortic valve insufficiency. Great Vessels Normal aortic root. The pulmonary is not well visualized. Severe pulmonary Hypertension RV systolic pressure measured 74mmhg. Pericardium/Pleural No pericardial effusion. MMode/2D Measurements & Calculations LVIDd: 5.4 cm IVSd: 1.3 cm Ao root diam: 3.3 cm LVIDs: 4.1 cm LVPWd: 1.8 cm RVDd: 3.5 cm FS: 24.6 % LAV(MOD-bp): 70.8 ml LA A4 area: 20.5 cm2 LA dimension(2D): 5.5 cm LAV(MOD-bp) Indexed: 36.9 ml/m2 LAV(MOD-sp2): 79.8 ml LAV(MOD-sp4): 63.1 ml RA A4 area: 18.5 cm2 Time Measurements MV dec time: 0.18 sec Doppler Measurements & Calculations MV E max sarabjit: 161.1 cm/sec Lat Peak E' Sarabjit: 10.6 cm/sec Med Peak E' Sarabjit: 9.4 cm/sec MV A max sarabjit: 52.9 cm/sec E/E' lat: 15.1 E/E' med: 17.1 MV E/A: 3.0 Ao V2 max: 119.8 cm/sec LV V1 max: 106.3 cm/sec PA V2 max: 104.4 cm/sec Ao max P.7 mmHg LV V1 max P.5 mmHg TR max sarabjit: 422.7 cm/sec TR max P.5 mmHg Interpretation Summary The 3D full volume ejection fraction is 55-60 %. No regional wall motion abnormalities noted. Moderately dilated right ventricle. Mild to moderate (1-2+) tricuspid valve insufficiency. No pericardial effusion. Severe pulmonary Hypertension RV systolic pressure measured 74mmhg Ordering Physician: Michelle Gregg Referring Physician: David Oliveira Performed By: Shobha Moreno RDCS, RVT
--- NOTE | 2020-10-25 18:05 | MRI_ITS ---
STUDY: MRI BRAIN WITHOUT CONTRAST REASON FOR EXAM: Female, 65 years old. TIA, confusion, slurred speech TECHNIQUE: Standardized multiplanar fat and water weighted pulse sequences were obtained. COMPARISON: CT October 25, 2020. MRI September 03, 2018 FINDINGS: There is mild cerebral atrophy with widening of the extra-axial spaces and ventricular dilatation. There are a limited number of small white matter hyperintensities, distributed throughout the deep white matter tracts of the cerebral hemispheres, consistent with mild chronic white matter ischemic changes. There is no evidence for recent intracranial ischemia or other cause of cytotoxic edema on diffusion weighted imaging (DWI). Normal T2* images of the brain without demonstrated susceptibility artifact. There is no demonstrated hemosiderin stain. Normal bilateral basal ganglia. Normal thalami. There is no extra-axial fluid accumulation. Normal flow voids within the major intracranial circulation suggesting patency by spin echo criteria. There is enlargement of the sella turcica with increased CSF within the sella and flattening of the pituitary gland consistent with an empty sellar syndrome. Normal infundibular stalk, hypothalamus, and optic chiasm. Normal tectal plate and pineal gland. There are chronic white matter ischemic changes of the elizabeth. The midbrain and medulla are otherwise normal. Normal cerebellum. Normal basal cisterns. Normal bilateral temporal bones. Normal bilateral internal auditory canals. There are bilateral ocular lens implants with otherwise normal intraorbital contents. There is postoperative change in mucosal thickening of the visualized paranasal sinuses. Normal calvarium and skull base. Normal visualized soft tissue structures. Normal visualized upper cervical spine. MRI/Brain without Contrast IMPRESSION: Involutional changes of the brain, as described above. There is empty sella. Electronically Signed: Alek Day MD at 22:20 EST , Service support ,
[2020-10-25] MEDS: 0.9% Normal Saline 1,000 ML 100 ML IV (18:14)
[2020-10-25] MEDS: Aspirin E.C. 81 MG Tablet PO (18:24)
--- NOTE | 2020-10-25 18:27 | NURSING ---
Addendum entered by Rosa See 10/25/20 19:13: Finger stick glucose 87 post meal. Original Note: Fingerstick glucose 68. Pt currently eating dinner. Will recheck.
[2020-10-25 19:06] LABS: Bedside Glucose 87 mg/dL (70-110)
[2020-10-25 19:06] LABS: Bedside Glucose 68 mg/dL (70-110)
[2020-10-25 20:16] LABS: Bedside Glucose 82 mg/dL (70-110)
[2020-10-25] MEDS: Acetaminophen 325 MG Tablet 650 MG PO (20:16)
[2020-10-25] MEDS: APIXABAN 2.5 MG TABLET PO (20:19)
[2020-10-25] MEDS: Atorvastatin Calcium 40 MG Tablet PO (20:19)
[2020-10-25] MEDS: Docusate Sodium 100 MG Capsule PO (20:19)
[2020-10-25] MEDS: busPIRone 5 MG Tablet 10 MG PO (20:19)
[2020-10-25] MEDS: Ranolazine 500 MG Tablet PO (20:19)
--- NOTE | 2020-10-25 23:28 | NURSING ---
Pt stated her speech is normal for her
[2020-10-26] VITALS (8 sets, daily range): BP systolic 116–156; BP diastolic 47–79; PULSE 55–70; RESP 18; TEMP 36.4–37.3; O2SAT 91–100
[2020-10-26] MEDS: 0.9% Normal Saline 1,000 ML 100 ML IV (05:17)
[2020-10-26] MEDS: Levothyroxine 100 MCG Tablet PO (05:19)
[2020-10-26 06:10] LABS: Absolute Lymphocyte Count 0.57 X10^3/uL (0.83-4.51); Absolute Neutrophil Count 4.1 X10^3/uL (2.0-7.7); Basophil# 0.02 X10^3/uL; Basophil% 0.4 % (0-1); Eosinophil# 0.24 X10^3/uL; Eosinophils% 4.3 % (0-5); Hematocrit 30.5 % (37-47); Hemoglobin 9.5 g/dL (12.0-15.0); Lymphocyte # 0.57 X10^3/ul (4.0); Lymphocyte % 10.2 % (19-41); Mean Corp Hgb Conc 31.1 g/dL (32-36); Mean Corpuscular Volume 99.7 fL (81-99); Mean Platelet Vol. 10.9 fl (6.2-12.0); Monocyte# 0.67 X10^3/uL; NRBC Flagged by Analyzer 0 % (0-5); Neutrophil # 4.06 X10^3/uL (2.7-7.7); Neutrophil % 72.7 % (47-70); POSITIVE DIFFERENTIAL YES; Platelet Count 147 K/mm3 (150-450); RBC Distribution Width CV 14.4 % (11.6-14.6); RBC Distribution Width SD 52.3 fl (35.1-43.9); Red Blood Count 3.06 M/mm3 (4.2-5.4); White Blood Count 5.6 K/mm3 (4.4-11.0)
[2020-10-26 06:18] LABS: Differential Indicated SCAN CRITERIA MET
[2020-10-26 06:39] LABS: Differential Comment SCANNED
[2020-10-26 06:40] LABS: Anisocytosis RARE; Macrocytosis RARE
[2020-10-26 06:53] LABS: Anion Gap 6 (5-15); BUN 27 mg/dL (7-18); BUN/Creat Ratio 23.7 RATIO (10-20); Calcium,Total 8.6 mg/dL (8.5-10.1); Chloride 110 mmol/L (98-107); Cholesterol 128 mg/dL (200); Creatinine, Serum 1.14 mg/dL (0.55-1.02); EST Glomerular Filtration Rate 51 mL/min (>60); Est Glom Filt Rate - Afr Amer 61 mL/min (>60); Estimated Creatinine Clearance 38.91 ml/min; Glucose 124 mg/dL (74-106); High Density Lipoprotein 49 mg/dL; Potassium 4.1 mmol/L (3.5-5.1); Sodium Level 142 mmol/L (136-145); Triglycerides 131 mg/dL; Very Low Density Lipoprotein 26 mg/dL (5-40)
[2020-10-26 07:25] LABS: Bedside Glucose 102 mg/dL (70-110)
[2020-10-26 07:40] LABS: Bedside Glucose 111 mg/dL (70-110)
[2020-10-26] MEDS: Insulin Lispro 100 UNIT/ML INSULN.PEN 6 UNIT SC (08:46)
[2020-10-26] MEDS: Losartan Potassium 25 MG Tablet 12.5 MG PO (09:38)
[2020-10-26] MEDS: Acetaminophen 325 MG Tablet 650 MG PO (09:39)
[2020-10-26] MEDS: busPIRone 5 MG Tablet 10 MG PO (09:40)
[2020-10-26] MEDS: Pantoprazole Sodium 40 MG Tablet PO (09:40)
[2020-10-26] MEDS: DULoxetine Hcl 60 MG Capsule PO (09:40)
[2020-10-26] MEDS: Ranolazine 500 MG Tablet PO (09:41)
[2020-10-26] MEDS: APIXABAN 2.5 MG TABLET PO (09:41)
[2020-10-26] MEDS: Allopurinol 100 MG Tablet PO (09:41)
[2020-10-26] MEDS: Metoprolol Tartrate 100 MG Tablet PO (09:41)
[2020-10-26] MEDS: Ceftriaxone 1 GM/50 ML BAG IV (09:55)
[2020-10-26 12:00] LABS: Bedside Glucose 257 mg/dL (70-110)
[2020-10-26] MEDS: Insulin Lispro 100 UNIT/ML INSULN.PEN 8 UNIT SC (12:17)
--- NOTE | 2020-10-26 13:05 | PCM.PN.HOSP ---
Reason for Visit: Encephalopathy, slurred speech Subjective: Slurred speech resolved. Pt c/o mild headache. No nausea/vomiting. No SOB/cough. No fever/chills. No Abd pain. Vitals/I&O's: Vital Signs Temp Pulse Resp BP Pulse Ox 97.5 F L 67 18 156/75 H 100 10/26/20 09:19 10/26/20 09:41 10/26/20 09:19 10/26/20 09:41 10/26/20 09:19 Oxygen Flow Rate (L/min) 3 Oxygen Delivery Method Nasal Cannula Weight: 201 lb 12.8 oz Body Mass Index (BMI) 36.8 Finger Stick Blood Glucose 105 Intake and Output for Last 24 Hours 10/24/20 10/25/20 10/26/20 23:59 23:59 23:59 Intake Total 606.67 / 606.67 2253.33 / 2253.33 Balance 606.67 / 606.67 2253.33 / 2253.33 General: Alert, Oriented x3, Cooperative HEENT: Atraumatic, PERRLA, EOMI, Normocephalic Neck: Supple, No JVD, Negative Carotid Bruits Lungs: Clear to auscultation, Normal air movement Cardiovascular: Regular rate, No murmurs Abdomen: Bowel Sounds Present, Soft, Non Tender Extremities: No edema, Capillary Refill Less than 3 Seconds Skin: No rashes, No breakdown Musculoskeletal: No Tenderness to Palpation of Joints or Extremities Neurological: Cranial nerves II-XII grossly intact Psych/Mental Status: Normal Affect, Appropriate, Alert and oriented to time, place, person, mood and affect Laboratory Results 10/25/20 15:15: WBC 5.9, RBC 3.25 L, Hgb 10.0 L, Hct 32.6 L, MCV 100.3 H, MCH 30.8, MCHC 30.7 L, RDW Std Deviation 52.4 H, RDW Coeff of Aubrey 14.5, Plt Count 149 L, MPV 10.1, Immature Gran % (Auto) 0.300, Neut % (Auto) 67.6, Lymph % (Auto) 16.2 L, Dixie % (Auto) 11.4 H, Eos % (Auto) 4.3, Baso % (Auto) 0.2, Absolute Neuts (auto) 4.0, Absolute Lymphs (auto) 0.95, Nucleated RBC % 0 10/25/20 15:15: PT 16.8 H, INR 1.4, APTT 36.8 H 10/25/20 15:15: Sodium 140, Potassium 4.6, Chloride 106, Carbon Dioxide 28.0, Anion Gap 6, BUN 28 H, Creatinine 1.44 H, Estim Creat Clear Calc 30.81, Est GFR (MDRD) Af Amer 47 L, Est GFR (MDRD) Non-Af 39 L, BUN/Creatinine Ratio 19.4, Glucose 118 H, Calcium 8.8, Troponin I < 0.015 10/25/20 15:15: Hemoglobin A1c 6.0 H 10/25/20 15:22: POC Glucose 102 10/25/20 18:23: POC Glucose 68 L 10/25/20 18:49: POC Glucose 87 10/25/20 20:11: POC Glucose 82 10/26/20 05:15: WBC 5.6, RBC 3.06 L, Hgb 9.5 L, Hct 30.5 L, MCV 99.7 H, MCH 31.0, MCHC 31.1 L, RDW Std Deviation 52.3 H, RDW Coeff of Aubrey 14.4, Plt Count 147 L, MPV 10.9, Immature Gran % (Auto) 0.400, Neut % (Auto) 72.7 H, Lymph % (Auto) 10.2 L, Dixie % (Auto) 12.0 H, Eos % (Auto) 4.3, Baso % (Auto) 0.4, Absolute Neuts (auto) 4.1, Absolute Lymphs (auto) 0.57 L, Nucleated RBC % 0, Differential Comment SCANNED, Anisocytosis RARE, Macrocytosis RARE 10/26/20 05:15: Sodium 142, Potassium 4.1, Chloride 110 H, Carbon Dioxide 26.0, Anion Gap 6, BUN 27 H, Creatinine 1.14 H, Estim Creat Clear Calc 38.91, Est GFR (MDRD) Af Amer 61, Est GFR (MDRD) Non-Af 51 L, BUN/Creatinine Ratio 23.7 H, Glucose 124 H, Calcium 8.6, Triglycerides 131, Cholesterol 128, LDL Cholesterol 53, VLDL Cholesterol 26, HDL Cholesterol 49 10/26/20 07:33: POC Glucose 111 H 10/26/20 11:53: POC Glucose 257 H Current Medications Acetaminophen (Acetaminophen 325 Mg Tablet) 650 mg PO Q6H PRN PRN PRN Reason: Pain Score 1-10/Temp > 100.7 F Last Admin: 10/26/20 09:39 Dose: 650 mg Documented by: Allopurinol (Allopurinol 100 Mg Tablet) 100 mg PO DAILY [facility] Last Admin: 10/26/20 09:41 Dose: 100 mg Documented by: Apixaban (Apixaban 2.5 Mg Tablet) 2.5 mg PO BID [facility] Last Admin: 10/26/20 09:41 Dose: 2.5 mg Documented by: Aspirin (Aspirin E.C. 81 Mg Tablet) 81 mg PO DAILY@1700 [facility] Last Admin: 10/25/20 18:24 Dose: 81 mg Documented by: Atorvastatin Calcium (Atorvastatin Calcium 40 Mg Tablet) 40 mg PO QHS [facility] Last Admin: 10/25/20 20:19 Dose: 40 mg Documented by: Buspirone HCl (Buspirone 5 Mg Tablet) 10 mg PO BID [facility] Last Admin: 10/26/20 09:40 Dose: 10 mg Documented by: Docusate Sodium (Docusate Sodium 100 Mg Capsule) 100 mg PO QHS [facility] Last Admin: 10/25/20 20:19 Dose: 100 mg Documented by: Duloxetine HCl (Duloxetine Hcl 60 Mg Capsule) 60 mg PO DAILY [facility] Last Admin: 10/26/20 09:40 Dose: 60 mg Documented by: Sodium Chloride () 1,000 mls @ 100 mls/hr IV .Q10H [facility] Last Infusion: 10/26/20 10:26 Dose: 100 mls/hr Documented by: Ceftriaxone Sodium (Rocephin) 1 gm in 50 mls @ 100 mls/hr IV Q24 [facility] Stop: 11/02/20 10:01 Last Infusion: 10/26/20 10:48 Dose: Infused Documented by: Insulin Glargine (Insulin Glargine 100 Units/Ml Pen) 15 units SC BID [facility] Last Admin: 10/26/20 09:42 Dose: 15 units Documented by: Insulin Human Lispro (Insulin Lispro 100 Unit/Ml Insuln.Pen) 6 unit SC BREAKFAST [facility] Last Admin: 10/26/20 08:46 Dose: 6 units Documented by: Insulin Human Lispro (Insulin Lispro 100 Unit/Ml Insuln.Pen) 8 unit SC LUNCH [facility] Last Admin: 10/26/20 12:17 Dose: 8 units Documented by: Insulin Human Lispro (Insulin Lispro 100 Unit/Ml Insuln.Pen) 10 unit SC DINNER [facility] Isosorbide Mononitrate (Isosorbide Mononitrate 120 Mg Tablet) 120 mg PO DAILY [facility] Last Admin: 10/26/20 09:41 Dose: 120 mg Documented by: Levothyroxine Sodium (Levothyroxine 100 Mcg Tablet) 100 mcg PO DAILY@0600 [facility] Last Admin: 10/26/20 05:19 Dose: 100 mcg Documented by: Losartan Potassium (Losartan Potassium 25 Mg Tablet) 12.5 mg PO DAILY [facility] Last Admin: 10/26/20 09:38 Dose: 12.5 mg Documented by: Metoprolol Tartrate (Metoprolol Tartrate 100 Mg Tablet) 100 mg PO BID [facility] Last Admin: 10/26/20 09:41 Dose: 100 mg Documented by: Ondansetron HCl (Ondansetron 4 Mg/2 Ml Vial) 4 mg IV Q8H PRN PRN PRN Reason: NAUSEA/VOMITING Pantoprazole Sodium (Pantoprazole Sodium 40 Mg Tablet) 40 mg PO DAILY [facility] Last Admin: 10/26/20 09:40 Dose: 40 mg Documented by: Ranolazine (Ranolazine 500 Mg Tablet) 500 mg PO BID [facility] Last Admin: 10/26/20 09:41 Dose: 500 mg Documented by: STROKE Vital Signs/Narrative: Vital Signs Temp Pulse Resp BP Pulse Ox 10/26/20 09:41 67 156/75 H 10/26/20 09:19 97.5 F L 67 18 156/75 H 100 Medical Necessity - Tobacco Use Smoking Status: Former smoker Tobacco Use: Non-smoker Assessment/Plan All Active Problems (Last Reviewed 08/31/20 @ 14:58 by Janessa Mooney) Abnormal nuclear stress test (Resolved) Bradycardia (Resolved) Hypokalemia (Resolved) Metabolic alkalosis (Resolved) Pneumonia (Resolved) Septic shock (Resolved) Toxic encephalopathy (Resolved) 1. Acute encephalopathy 2/2 UTI - continue rocephin. Slurred speech resolved. MRI no stroke. Echo notable for pulmonary HTN. CTA head/neck neg. 2. TITI - resolved. 3. COPD with chronic hypoxic resp failure - at baseline. No SOB. No exacerbation 4. pAfib - metoprolol / eliquis 5. CAD - Aspirin, Statin, ARB, beta sudhakar 6. DMt2 - continue insulin regimen 7. Debility - continue PTOT, pt weak and unsteady on feet. May need placement. 8. PARESH - noncompliant with CPAP. 9. Hx DVT/PE - as above, eliquis DVT ppx: [place] planning: SNF vs [facility] This patient was seen by Vinay Bear PA-C under the supervision of Dr. Gregg
--- NOTE | 2020-10-26 14:19 | CASEMGMT ---
Social Work Consult: Skilled Nursing Placement Informant: Emily Mckinnon Marital/Social History: . Has three adult children. Living Situation: Lives with son, Avery in a 1-story home with no steps to enter. Patient son is disabled and unable to physically assist patient. Support/Resources: Active with [employer] services. vice president and portfolio manager is Felicitas ([phone]). Patient receives three hours of home health aides Mon-Fri through [facility]. Patient has a medical alert button as well as 14 home delivered meals bi-weekly. Education/Employment: Denies any issues with comprehension or understanding. Mental Health Treatment/History: Denies any mental health history/treatment. DME: Walker, Home oxygen. Patient home oxygen set up through [facility] Advanced Directives: Full Code. Denies having a Living Will or Health Care Power of Gas Systems Worker. Patient is not interested in completing advanced care planning documentation at this time as I need to speak with my kids. Pharmacy: [facility] PCP: Dr. Bhupendra Oliveira Transportation: Transportation through insurance. Orientation: A&Ox3 Appearance/General Behavior: Pleasant and engaged affect. Assessment: Met with patient in room. Introduced self and dialysis social worker role. Patient agreeable to speaking with this dialysis social worker. This dialysis social worker broached topic of residential placement for skilled services. Patient states I am not going to a residential. Patient states plan to return to home and my sister is coming to stay with me. Patient able to acknowledge that I am weak. Patient reports I do think my sister can take care of me. Patient reports to already have aides in the home and no concerns on returning to the community. Patient reports that patient sister is coming today and I hope I can go home today. Patient appears to understand own limitations and able to identify a support system in the community. Support provided. Medical team updated on above information. Medical team agreeable to plan for home with home health services as patient reports to have support. PLAN: Home with home health services. Case Management/Skin Tanner to continue to follow. Cindy BARRETT, LETICIA
--- NOTE | 2020-10-26 14:49 | CASEMGMT ---
Social Work This delinquency prevention social worker provided patient with list of in-network home health providers for patient in patient geographical area. Patient thanked this delinquency prevention social worker and [facility] as home health company for P.T/O.T. Patient currently pending medical clearance for discharge. Case Management/Blast Furnace Keeper Helper to continue to follow as needed. PLAN: Home with home health services. Cindy BARRETT, LETICIA
--- NOTE | 2020-10-26 14:52 | CASEMGMT ---
Per Jenifer LOZANO, pt chose [facility] and call to Shayla at [facility] to notify of referral for PT/OT at this time and Shayla states they can take pt at this time but they may not be able to see her until the beginning of the week. Order placed for PT/OT at this time. Magui SANTOS CM
--- NOTE | 2020-10-26 15:05 | PCM.DC ---
- Discharge Diagnoses Current Active Problems: Current Active and Chronic Problems (Last Reviewed 08/31/20 @ 14:58 by Janessa Mooney) Abnormal stress test (Chronic) Presence of stent in coronary artery (Chronic ~12/07/03) PCI/Stent to the prox 1st Diag branch 12/07/2003 Mixed hyperlipidemia (Chronic) Atherosclerotic heart disease of [place] coronary artery without angina pectoris (Chronic) Essential hypertension (Chronic) Paroxysmal A-fib (Chronic) Diabetes mellitus type 2 in obese (Chronic) Hypothyroidism (Chronic) GERD (gastroesophageal reflux disease) (Chronic) COPD (chronic obstructive pulmonary disease) (Chronic) Chronic respiratory insufficiency (Chronic) On home oxygen at night PARESH (obstructive sleep apnea) (Chronic) non-complaint with CPAP You will use the following diet at home:: Cardiac Your food should be the consistency of: Regular Your liquids should be the consistency of: Regular/Thin Discharge Activity: Return to Normal Activity Allergies/Adverse Reactions: Allergies ciprofloxacin [From Cipro] Allergy (Verified 10/24/20 17:21) Hives latex Allergy (Verified 10/24/20 17:21) matos me niacin [From Niaspan Extended-Release] Allergy (Verified 10/24/20 17:21) Hives ondansetron [From Zofran] Allergy (Verified 10/24/20 17:21) Unknown Xanthines Allergy (Verified 10/24/20 17:21) Unknown orphenadrine citrate [From Norgesic] Adverse Reaction (Verified 10/24/20 17:21) groggy medical tape Adverse Reaction (Uncoded 10/24/20 17:21) blisters Medications to take at Discharge Atorvastatin Calcium [Lipitor] 40 mg PO QHS 02/03/18 Duloxetine Hcl [Cymbalta] 60 mg PO DAILY 02/03/18 Levothyroxine [Synthroid] 100 mcg PO DAILY 02/03/18 Apixaban [Eliquis] 2.5 mg PO BID 05/17/18 Ascorbic Acid [Vitamin C] 500 mg PO DAILY@1700 05/17/18 Aspirin E.C. [Ecotrin] 81 mg PO DAILY@1700 09/02/18 docusate sodium 100 mg capsule 100 mg PO QHS cap 06/08/19 fluticasone propionate 50 mcg/actuation nasal spray,suspension 2 spray INTRANASAL DAILY 06/08/19 potassium chloride 10 mEq tablet,extended release 10 meq PO DAILY 06/08/19 allopurinol 100 mg tablet 100 mg PO DAILY 08/11/19 buspirone 10 mg tablet 10 mg PO BID 08/11/19 Losartan Potassium [Cozaar] 12.5 mg PO DAILY 09/28/19 metformin 500 mg tablet,extended release 24 hr 1,000 mg PO BID tab 12/01/19 metoprolol tartrate 100 mg tablet 100 mg PO BID #60 tab 05/01/20 nitroglycerin 0.4 mg sublingual tablet 0.4 mg SUBLINGUAL Q5-15M PRN #25 tab 07/04/20 ranolazine 500 mg tablet,extended release,12 hr 500 mg PO BID #60 tab 07/04/20 isosorbide mononitrate 120 mg tablet,extended release 24 hr 120 mg PO DAILY #90 tab 09/14/20 Fexofenadine HCl [Merlyn Allergy] 180 mg PO DAILY 09/26/20 Furosemide [Lasix] 20 mg PO BID 10/25/20 Omeprazole 40 mg PO DAILY 10/25/20 Insulin Glargine [Lantus SoloStar Pen] 15 units SC BID pen 10/26/20 Insulin Lispro [Humalog KwikPen] 6 unit SC BREAKFAST insuln.pen 10/26/20 Insulin Lispro [Humalog KwikPen] 8 unit SC LUNCH insuln.pen 10/26/20 Insulin Lispro [Humalog KwikPen] 10 unit SC DINNER insuln.pen 10/26/20 Nitrofurantoin Monohyd/M-Cryst [Macrobid 100 mg Capsule] 100 mg PO BID #10 cap 10/26/20 The following prescriptions were given: Nitrofurantoin Monohyd/M-Cryst [Macrobid 100 mg Capsule] 100 mg PO BID #10 cap Transmission Status: Pending to [place] [employer] [facility] [place] - [id number] Primary Care Physician: Bhupendra Oliveira MD [Primary Care Provider] - Please follow up with your Primary Care Physician in: 1-2 weeks Test Results: Test results from this visit will be discussed in further detail at your follow-up appointment, if applicable. Proposed Discharge Date: 10/26/20
--- NOTE | 2020-10-26 15:12 | CASEMGMT ---
[facility] left updating [facility]la on patient discharge today. Telephone call to Emilee PHILLIPS. Voicemail left that patient is discharge to home today with [facility] for skilled services and need to resume aide services through [place]. PLAN: Discharge to home today with sister to assist with care and home health services. Cindy BARRETT, LETICIA
--- NOTE | 2020-10-26 15:47 | DS.PCM_ITS ---
<Vinay Bear - Last Filed: 10/26/20 15:47> Discharge Date and Diagnosis Date of Admission: 10/25/20 Date of Discharge: 10/26/20 - Primary Discharge Diagnosis Acute Problems: Acute metabolic encephalopathy secondary to urinary tract infection-E. coli Acute kidney injury-resolved Severe pulmonary HTN PARESH noncompliant with CPAP - Secondary Discharge Diagnosis Chronic Problems: Chronic Problems (Last Reviewed 08/31/20 @ 14:58 by Janessa Mooney) Abnormal stress test (Chronic) Presence of stent in coronary artery (Chronic ~12/07/03) PCI/Stent to the prox 1st Diag branch 12/07/2003 Mixed hyperlipidemia (Chronic) Atherosclerotic heart disease of [place] coronary artery without angina pectoris (Chronic) Essential hypertension (Chronic) Paroxysmal A-fib (Chronic) Diabetes mellitus type 2 in obese (Chronic) Hypothyroidism (Chronic) GERD (gastroesophageal reflux disease) (Chronic) COPD (chronic obstructive pulmonary disease) (Chronic) Chronic respiratory insufficiency (Chronic) On home oxygen at night PARESH (obstructive sleep apnea) (Chronic) non-complaint with CPAP Hospital Course and Treatment Imaging Results: CT/STROKE Brain/Head without Cont IMPRESSION: Chronic involutional changes of the brain. CT/STROKE CTA Head AND Neck W/Con IMPRESSION: Normal CTA Head and neck with contrast. RAD/Chest 1 View IMPRESSION: Increasing interstitial densities bilaterally with worsening patchy infiltrates. MRI/Brain without Contrast IMPRESSION: Involutional changes of the brain, as described above. There is empty sella. 2D TTE: Interpretation Summary The 3D full volume ejection fraction is 55-60 %. No regional wall motion abnormalities noted. Moderately dilated right ventricle. Mild to moderate (1-2+) tricuspid valve insufficiency. No pericardial effusion. Severe pulmonary Hypertension RV systolic pressure measured 74mmhg Operations: None Procedures: 2-D Echocardiogram Summary of Care Provided: Hospital course: The patient is a 65 year old F with past medical history of hypertension, paroxysmal atrial fibrillation, type 2 diabetes, sleep apnea noncompliant with CPAP, COPD, who presents to the emergency room with complaints of slurred speech and drowsiness. In the emergency room she had a CT of the brain that was negative for acute process. She was found to have a urinary tract infection. She was admitted to the PCU for stroke work-up. She was placed on Rocephin with concerns for urinary tract infection. She had also been on Levaquin recently for questionable pneumonia. The patient had evidence of acute kidney injury at presentation. Her nephrotoxins were held and she was given IV hydration. By the following day her slurred speech had resolved. CTA of the head and neck was obtained and negative. MRI of the brain was obtained which did not show evidence of stroke. An echocardiogram was obtained as part of her stroke work- up and was notable for severe pulmonary hypertension. The patient's urine culture demonstrated E. coli susceptible to Macrobid. She was placed on 5 days of Macrobid. She did have some underlying debility however she was reluctant to consider longterm at this time. She was discharged home with home health care in stable condition. She will need to follow-up with her PCP in 1 to 2 weeks. This patient was seen by Vinay Bear PA-C under the supervision of Doctor Cristino. [] - Physical Exam Vitals/I&O's: Vital Signs Temp Pulse Resp BP Pulse Ox 99.2 F H 55 L 18 116/66 100 10/26/20 15:37 10/26/20 15:37 10/26/20 15:37 10/26/20 15:37 10/26/20 15:37 Oxygen Flow Rate (L/min) 3 Oxygen Delivery Method Nasal Cannula Weight: 201 lb 12.8 oz Body Mass Index (BMI) 36.8 Finger Stick Blood Glucose 105 Intake and Output for Last 24 Hours 10/24/20 10/25/20 10/26/20 23:59 23:59 23:59 Intake Total 606.67 / 606.67 2771.66 / 2771.66 Balance 606.67 / 606.67 2771.66 / 2771.66 General: Alert, Oriented x3, Cooperative HEENT: Atraumatic, PERRLA, EOMI, Normocephalic Neck: Supple, No JVD, Negative Carotid Bruits Lungs: Clear to auscultation, Normal air movement Cardiovascular: Regular rate, No murmurs Abdomen: Bowel Sounds Present, Soft, Non Tender Extremities: No edema, Capillary Refill Less than 3 Seconds Skin: No rashes, No breakdown Musculoskeletal: No Tenderness to Palpation of Joints or Extremities Neurological: Cranial nerves II-XII grossly intact Psych/Mental Status: Normal Affect, Appropriate Laboratory Results 10/25/20 15:15: PT 16.8 H, INR 1.4, APTT 36.8 H 10/25/20 15:15: Sodium 140, Potassium 4.6, Chloride 106, Carbon Dioxide 28.0, Anion Gap 6, BUN 28 H, Creatinine 1.44 H, Estim Creat Clear Calc 30.81, Est GFR (MDRD) Af Amer 47 L, Est GFR (MDRD) Non-Af 39 L, BUN/Creatinine Ratio 19.4, Glucose 118 H, Calcium 8.8, Troponin I < 0.015 10/25/20 15:15: Hemoglobin A1c 6.0 H 10/25/20 15:22: POC Glucose 102 10/25/20 18:23: POC Glucose 68 L 10/25/20 18:49: POC Glucose 87 10/25/20 20:11: POC Glucose 82 10/26/20 05:15: WBC 5.6, RBC 3.06 L, Hgb 9.5 L, Hct 30.5 L, MCV 99.7 H, MCH 31.0, MCHC 31.1 L, RDW Std Deviation 52.3 H, RDW Coeff of Aubrey 14.4, Plt Count 147 L, MPV 10.9, Immature Gran % (Auto) 0.400, Neut % (Auto) 72.7 H, Lymph % (Auto) 10.2 L, Parke % (Auto) 12.0 H, Eos % (Auto) 4.3, Baso % (Auto) 0.4, Absolute Neuts (auto) 4.1, Absolute Lymphs (auto) 0.57 L, Nucleated RBC % 0, Differential Comment SCANNED, Anisocytosis RARE, Macrocytosis RARE 10/26/20 05:15: Sodium 142, Potassium 4.1, Chloride 110 H, Carbon Dioxide 26.0, Anion Gap 6, BUN 27 H, Creatinine 1.14 H, Estim Creat Clear Calc 38.91, Est GFR (MDRD) Af Amer 61, Est GFR (MDRD) Non-Af 51 L, BUN/Creatinine Ratio 23.7 H, Glucose 124 H, Calcium 8.6, Triglycerides 131, Cholesterol 128, LDL Cholesterol 53, VLDL Cholesterol 26, HDL Cholesterol 49 10/26/20 07:33: POC Glucose 111 H 10/26/20 11:53: POC Glucose 257 H Current Medications Acetaminophen (Acetaminophen 325 Mg Tablet) 650 mg PO Q6H PRN PRN PRN Reason: Pain Score 1-10/Temp > 100.7 F Last Admin: 10/26/20 09:39 Dose: 650 mg Documented by: Allopurinol (Allopurinol 100 Mg Tablet) 100 mg PO DAILY [facility] Last Admin: 10/26/20 09:41 Dose: 100 mg Documented by: Apixaban (Apixaban 2.5 Mg Tablet) 2.5 mg PO BID [facility] Last Admin: 10/26/20 09:41 Dose: 2.5 mg Documented by: Aspirin (Aspirin E.C. 81 Mg Tablet) 81 mg PO DAILY@1700 [facility] Last Admin: 10/25/20 18:24 Dose: 81 mg Documented by: Atorvastatin Calcium (Atorvastatin Calcium 40 Mg Tablet) 40 mg PO QHS [facility] Last Admin: 10/25/20 20:19 Dose: 40 mg Documented by: Buspirone HCl (Buspirone 5 Mg Tablet) 10 mg PO BID [facility] Last Admin: 10/26/20 09:40 Dose: 10 mg Documented by: Docusate Sodium (Docusate Sodium 100 Mg Capsule) 100 mg PO QHS [facility] Last Admin: 10/25/20 20:19 Dose: 100 mg Documented by: Duloxetine HCl (Duloxetine Hcl 60 Mg Capsule) 60 mg PO DAILY [facility] Last Admin: 10/26/20 09:40 Dose: 60 mg Documented by: Sodium Chloride () 1,000 mls @ 100 mls/hr IV .Q10H [facility] Last Infusion: 10/26/20 15:37 Dose: Infused Documented by: Ceftriaxone Sodium (Rocephin) 1 gm in 50 mls @ 100 mls/hr IV Q24 [facility] Stop: 11/02/20 10:01 Last Infusion: 10/26/20 10:48 Dose: Infused Documented by: Insulin Glargine (Insulin Glargine 100 Units/Ml Pen) 15 units SC BID [facility] Last Admin: 10/26/20 09:42 Dose: 15 units Documented by: Insulin Human Lispro (Insulin Lispro 100 Unit/Ml Insuln.Pen) 6 unit SC BREAKFAST [facility] Last Admin: 10/26/20 08:46 Dose: 6 units Documented by: Insulin Human Lispro (Insulin Lispro 100 Unit/Ml Insuln.Pen) 8 unit SC LUNCH [facility] Last Admin: 10/26/20 12:17 Dose: 8 units Documented by: Insulin Human Lispro (Insulin Lispro 100 Unit/Ml Insuln.Pen) 10 unit SC DINNER [facility] Isosorbide Mononitrate (Isosorbide Mononitrate 120 Mg Tablet) 120 mg PO DAILY [facility] Last Admin: 10/26/20 09:41 Dose: 120 mg Documented by: Levothyroxine Sodium (Levothyroxine 100 Mcg Tablet) 100 mcg PO DAILY@0600 [facility] Last Admin: 10/26/20 05:19 Dose: 100 mcg Documented by: Losartan Potassium (Losartan Potassium 25 Mg Tablet) 12.5 mg PO DAILY [facility] Last Admin: 10/26/20 09:38 Dose: 12.5 mg Documented by: Metoprolol Tartrate (Metoprolol Tartrate 100 Mg Tablet) 100 mg PO BID [facility] Last Admin: 10/26/20 09:41 Dose: 100 mg Documented by: Ondansetron HCl (Ondansetron 4 Mg/2 Ml Vial) 4 mg IV Q8H PRN PRN PRN Reason: NAUSEA/VOMITING Pantoprazole Sodium (Pantoprazole Sodium 40 Mg Tablet) 40 mg PO DAILY [facility] Last Admin: 10/26/20 09:40 Dose: 40 mg Documented by: Ranolazine (Ranolazine 500 Mg Tablet) 500 mg PO BID [facility] Last Admin: 10/26/20 09:41 Dose: 500 mg Documented by: Discharge Diet: Low fat/ Low Cholesterol, 2000 mg Sodium Diet Discharge Activity: Return to Normal Activity Home Medications: Medications to take at Discharge Atorvastatin Calcium [Lipitor] 40 mg PO QHS 02/03/18 Duloxetine Hcl [Cymbalta] 60 mg PO DAILY 02/03/18 Levothyroxine [Synthroid] 100 mcg PO DAILY 02/03/18 Apixaban [Eliquis] 2.5 mg PO BID 05/17/18 Ascorbic Acid [Vitamin C] 500 mg PO DAILY@169905/17/18 Aspirin E.C. [Ecotrin] 81 mg PO DAILY@169909/02/18 docusate sodium 100 mg capsule 100 mg PO QHS cap 06/08/19 fluticasone propionate 50 mcg/actuation nasal spray,suspension 2 spray INTRANASAL DAILY 06/08/19 potassium chloride 10 mEq tablet,extended release 10 meq PO DAILY 06/08/19 allopurinol 100 mg tablet 100 mg PO DAILY 08/11/19 buspirone 10 mg tablet 10 mg PO BID 08/11/19 Losartan Potassium [Cozaar] 12.5 mg PO DAILY 09/28/19 metformin 500 mg tablet,extended release 24 hr 1,000 mg PO BID tab 12/01/19 metoprolol tartrate 100 mg tablet 100 mg PO BID #60 tab 05/01/20 nitroglycerin 0.4 mg sublingual tablet 0.4 mg SUBLINGUAL Q5-15M PRN #25 tab 07/04/20 ranolazine 500 mg tablet,extended release,12 hr 500 mg PO BID #60 tab 07/04/20 isosorbide mononitrate 120 mg tablet,extended release 24 hr 120 mg PO DAILY #90 tab 09/14/20 Fexofenadine HCl [Merlyn Allergy] 180 mg PO DAILY 09/26/20 Furosemide [Lasix] 20 mg PO BID 10/25/20 Omeprazole 40 mg PO DAILY 10/25/20 Insulin Glargine [Lantus SoloStar Pen] 15 units SC BID pen 10/26/20 Insulin Lispro [Humalog KwikPen] 6 unit SC BREAKFAST insuln.pen 10/26/20 Insulin Lispro [Humalog KwikPen] 8 unit SC LUNCH insuln.pen 10/26/20 Insulin Lispro [Humalog KwikPen] 10 unit SC DINNER insuln.pen 10/26/20 Nitrofurantoin Monohyd/M-Cryst [Macrobid 100 mg Capsule] 100 mg PO BID #10 cap 10/26/20 Following Prescriptions Were Given to Patient: Nitrofurantoin Monohyd/M-Cryst [Macrobid 100 mg Capsule] 100 mg PO BID #10 cap Transmission Status: Received by [facility] - [place] - [id number] Primary Care Physician: Bhupendra Oliveira MD [Primary Care Provider] - Please follow up with your Primary Care Physician in: 1-2 weeks Disposition: Home with Home Health Minutes spent on discharge:: 40 Patient Condition:: Stable Medical Necessity - Tobacco Use Smoking Status: Former smoker Tobacco Use: Non-smoker Meaningful Use Info Meaningful Use Diagnoses (Choose all that apply): None applicable <Michelle Gregg - Last Filed: 10/26/20 16:07> Discharge Date and Diagnosis - Secondary Discharge Diagnosis Chronic Problems: Chronic Problems (Last Reviewed 08/31/20 @ 14:58 by Janessa Mooney) Abnormal stress test (Chronic) Presence of stent in coronary artery (Chronic ~12/07/03) PCI/Stent to the prox 1st Diag branch 12/07/2003 Mixed hyperlipidemia (Chronic) Atherosclerotic heart disease of [place] coronary artery without angina pectoris (Chronic) Essential hypertension (Chronic) Paroxysmal A-fib (Chronic) Diabetes mellitus type 2 in obese (Chronic) Hypothyroidism (Chronic) GERD (gastroesophageal reflux disease) (Chronic) COPD (chronic obstructive pulmonary disease) (Chronic) Chronic respiratory insufficiency (Chronic) On home oxygen at night PARESH (obstructive sleep apnea) (Chronic) non-complaint with CPAP Hospital Course and Treatment Summary of Care Provided: Agree with the above and the following is representation of my independent history and physical examination. Ms. Figueroa is a 65 year old white F who appears much older than stated age with a PMH of CAD, chronic hypoxic respiratory failure, COPD, DDD, DM 2, HTN, gastroparesis, GERD, history of DVT and PE, hypothyroidism, PARESH, hyperlipidemia, gout, and allergies presented to the emergency department on 10/25/2020 secondary to mental status change, generalized weakness, and slurred speech. She reported that her home health aide was over and noticed slurred speech and some increased confusion and called the squad. Upon arrival a stroke team was called. A CT of her head showed no acute processes and only chronic involutional changes of the brain and a CTA performed and was within normal limits. He was seen by the stroke neurologist at [facility] and they recommended completion of the stroke work-up. Upon further review, the patient was in the emergency department yesterday notes with a right lower lobe pneumonia and was given a prescription for Levaquin. She took 1 tablet of Levaquin last night and 1 this morning. Cultures were obtained from the blood and they are pending but urine culture was positive for E. coli was found to be resistant to multiple antimicrobials but was sensitive to nitrofurantoin. She was admitted and given hydration as she had some mild TITI related to dehydration. Her renal efficiency resolved with IV hydration. An MRI was done and showed no acute findings. An echocardiogram was performed and showed her EF to be 55 to 60% with no regional wall motion abnormalities, the right ventricle is moderately dilated with global dysfunction, she has biatrial enlargement with right being greater than left and her right ventricular systolic pressure was 74 giving her severe pulmonary hypertension related to her untreated sleep apnea. Her speech issues resolved and her mentation improve dramatically and she desired to go home the following day. A1c was done and found to be 6. It was recommended that she be discharged to a longterm facility/rehab for continued strengthening but she refused and would like to go home with home health care for therapy services instead. She also has home health aide that comes in daily and her sister is coming in to help out in the acute discharged phase. She was discharged with 5 total days of Macrobid is the Levaquin that she has at home and the ceftriaxone were both found to be non-beneficial as the E. coli was resistant to these as well. She was discharged in stable condition. She will need to follow-up with her primary care physician in 1 to 2 weeks. Discharge diagnoses Acute metabolic encephalopathy secondary to to urinary tract infection TITI-resolved Resistant E. coli UTI Chronic anemia Mild thrombocytopenia PAF Hypothyroidism COPD-oxygen dependent at 2 to 3 L GERD CAD Anxiety HTN HPL DM-2 History of PE/DVT Obesity PARESH-patient noncompliant Pulmonary hypertension-severe Depression Obesity Discharge time greater than 35 minutes Subjective: Patient states she is feeling much better desires to go home. Would like to have home health care at home after discharge. - Physical Exam Vitals/I&O's: Vital Signs Temp Pulse Resp BP Pulse Ox 99.2 F H 55 L 18 116/66 100 10/26/20 15:37 10/26/20 15:37 10/26/20 15:37 10/26/20 15:37 10/26/20 15:37 Oxygen Flow Rate (L/min) 3 Oxygen Delivery Method Nasal Cannula Weight: 91.535 kg Body Mass Index (BMI) 36.8 Finger Stick Blood Glucose 105 Intake and Output for Last 24 Hours 10/24/20 10/25/20 10/26/20 23:59 23:59 23:59 Intake Total 606.67 / 606.67 2771.66 / 2771.66 Balance 606.67 / 606.67 2771.66 / 2771.66 General: Alert, Oriented x3, Cooperative, No apparent distress, Well developed, Well nourished, - - Peak obese white female lying in bed appears comfortable, speech is clear, nontoxic HEENT: Atraumatic, PERRLA, EOMI, Normocephalic, EAC Clear Oral: Moist Mucosa, - - Edentulous Neck: Supple, No JVD, Trachea Midline, Thyroid Normal Size and Texture Lungs: Clear to auscultation, Normal air movement, No rhonchi, No wheeze, No rales, Diminished - Diffusely Cardiovascular: Regular rate, Regular Rhythm, Normal S1, Normal S2, No murmurs, No Ectopic Activity, No rub noted, No Gallop Abdomen: Bowel Sounds Present, Soft, Non Tender, Non-Distended, No hernias noted Extremities: No clubbing, No cyanosis, No edema, Capillary Refill Less than 3 Seconds, Peripheral Pulses Normal Skin: No rashes, No breakdown, - - Pale Musculoskeletal: No Tenderness to Palpation of Joints or Extremities Neurological: Cranial nerves II-XII grossly intact, Neuro grossly intact, Muscle tone normal, Coordination normal Psych/Mental Status: Normal Affect, Appropriate Laboratory Results 10/25/20 15:15: PT 16.8 H, INR 1.4, APTT 36.8 H 10/25/20 15:15: Hemoglobin A1c 6.0 H 10/25/20 15:22: POC Glucose 102 10/25/20 18:23: POC Glucose 68 L 10/25/20 18:49: POC Glucose 87 10/25/20 20:11: POC Glucose 82 10/26/20 05:15: WBC 5.6, RBC 3.06 L, Hgb 9.5 L, Hct 30.5 L, MCV 99.7 H, MCH 31.0, MCHC 31.1 L, RDW Std Deviation 52.3 H, RDW Coeff of Aubrey 14.4, Plt Count 147 L, MPV 10.9, Immature Gran % (Auto) 0.400, Neut % (Auto) 72.7 H, Lymph % (Auto) 10.2 L, Parke % (Auto) 12.0 H, Eos % (Auto) 4.3, Baso % (Auto) 0.4, Absolute Neuts (auto) 4.1, Absolute Lymphs (auto) 0.57 L, Nucleated RBC % 0, Differential Comment SCANNED, Anisocytosis RARE, Macrocytosis RARE 10/26/20 05:15: Sodium 142, Potassium 4.1, Chloride 110 H, Carbon Dioxide 26.0, Anion Gap 6, BUN 27 H, Creatinine 1.14 H, Estim Creat Clear Calc 38.91, Est GFR (MDRD) Af Amer 61, Est GFR (MDRD) Non-Af 51 L, BUN/Creatinine Ratio 23.7 H, Glucose 124 H, Calcium 8.6, Triglycerides 131, Cholesterol 128, LDL Cholesterol 53, VLDL Cholesterol 26, HDL Cholesterol 49 10/26/20 07:33: POC Glucose 111 H 10/26/20 11:53: POC Glucose 257 H Current Medications Acetaminophen (Acetaminophen 325 Mg Tablet) 650 mg PO Q6H PRN PRN PRN Reason: Pain Score 1-10/Temp > 100.7 F Last Admin: 10/26/20 09:39 Dose: 650 mg Documented by: Allopurinol (Allopurinol 100 Mg Tablet) 100 mg PO DAILY [facility] Last Admin: 10/26/20 09:41 Dose: 100 mg Documented by: Apixaban (Apixaban 2.5 Mg Tablet) 2.5 mg PO BID [facility] Last Admin: 10/26/20 09:41 Dose: 2.5 mg Documented by: Aspirin (Aspirin E.C. 81 Mg Tablet) 81 mg PO DAILY@1700 [facility] Last Admin: 10/25/20 18:24 Dose: 81 mg Documented by: Atorvastatin Calcium (Atorvastatin Calcium 40 Mg Tablet) 40 mg PO QHS [facility] Last Admin: 10/25/20 20:19 Dose: 40 mg Documented by: Buspirone HCl (Buspirone 5 Mg Tablet) 10 mg PO BID [facility] Last Admin: 10/26/20 09:40 Dose: 10 mg Documented by: Docusate Sodium (Docusate Sodium 100 Mg Capsule) 100 mg PO QHS [facility] Last Admin: 10/25/20 20:19 Dose: 100 mg Documented by: Duloxetine HCl (Duloxetine Hcl 60 Mg Capsule) 60 mg PO DAILY [facility] Last Admin: 10/26/20 09:40 Dose: 60 mg Documented by: Sodium Chloride () 1,000 mls @ 100 mls/hr IV .Q10H [facility] Last Infusion: 10/26/20 15:37 Dose: Infused Documented by: Ceftriaxone Sodium (Rocephin) 1 gm in 50 mls @ 100 mls/hr IV Q24 [facility] Stop: 11/02/20 10:01 Last Infusion: 10/26/20 10:48 Dose: Infused Documented by: Insulin Glargine (Insulin Glargine 100 Units/Ml Pen) 15 units SC BID [facility] Last Admin: 10/26/20 09:42 Dose: 15 units Documented by: Insulin Human Lispro (Insulin Lispro 100 Unit/Ml Insuln.Pen) 6 unit SC BREAKFAST [facility] Last Admin: 10/26/20 08:46 Dose: 6 units Documented by: Insulin Human Lispro (Insulin Lispro 100 Unit/Ml Insuln.Pen) 8 unit SC LUNCH [facility] Last Admin: 10/26/20 12:17 Dose: 8 units Documented by: Insulin Human Lispro (Insulin Lispro 100 Unit/Ml Insuln.Pen) 10 unit SC DINNER [facility] Isosorbide Mononitrate (Isosorbide Mononitrate 120 Mg Tablet) 120 mg PO DAILY [facility] Last Admin: 10/26/20 09:41 Dose: 120 mg Documented by: Levothyroxine Sodium (Levothyroxine 100 Mcg Tablet) 100 mcg PO DAILY@0600 [facility] Last Admin: 10/26/20 05:19 Dose: 100 mcg Documented by: Losartan Potassium (Losartan Potassium 25 Mg Tablet) 12.5 mg PO DAILY [facility] Last Admin: 10/26/20 09:38 Dose: 12.5 mg Documented by: Metoprolol Tartrate (Metoprolol Tartrate 100 Mg Tablet) 100 mg PO BID [facility] Last Admin: 10/26/20 09:41 Dose: 100 mg Documented by: Ondansetron HCl (Ondansetron 4 Mg/2 Ml Vial) 4 mg IV Q8H PRN PRN PRN Reason: NAUSEA/VOMITING Pantoprazole Sodium (Pantoprazole Sodium 40 Mg Tablet) 40 mg PO DAILY [facility] Last Admin: 10/26/20 09:40 Dose: 40 mg Documented by: Ranolazine (Ranolazine 500 Mg Tablet) 500 mg PO BID [facility] Last Admin: 10/26/20 09:41 Dose: 500 mg Documented by: Inpatient E&M: [id number] [facility]
== END 2020-10-26 15:05 | disposition home health service (06) ==
LOC: ED 15:24 → PCU 23:19
PROVIDERS: Nurse Practitioner Family; Admitting Provider Internal Medicine; Emergency Provider Emergency Medicine; PCP Family Medicine; Visit Provider Internal Medicine
DX: N39.0 Urinary tract infection, site not specified (principal); R47.1 Dysarthria and anarthria; J18.9 Pneumonia, unspecified organism; G47.33 Obstructive sleep apnea (adult) (pediatric); N17.9 Acute kidney failure, unspecified; I27.20 Pulmonary hypertension, unspecified; G93.41 Metabolic encephalopathy; B96.20 Unspecified Escherichia coli [E. coli] as the cause of diseases classified elsewhere; E78.2 Mixed hyperlipidemia; I48.0 Paroxysmal atrial fibrillation; I25.10 Atherosclerotic heart disease of native coronary artery without angina pectoris; E11.9 Type 2 diabetes mellitus without complications; E66.9 Obesity, unspecified; E03.9 Hypothyroidism, unspecified; J96.11 Chronic respiratory failure with hypoxia; I10 Essential (primary) hypertension; J44.9 Chronic obstructive pulmonary disease, unspecified; F41.9 Anxiety disorder, unspecified; F32.9 Major depressive disorder, single episode, unspecified; D69.6 Thrombocytopenia, unspecified; D64.9 Anemia, unspecified; G25.81 Restless legs syndrome; K21.9 Gastro-esophageal reflux disease without esophagitis; Z95.5 Presence of coronary angioplasty implant and graft; Z79.899 Other long term (current) drug therapy; Z79.4 Long term (current) use of insulin; Z79.82 Long term (current) use of aspirin; Z91.19 Patient's noncompliance with other medical treatment and regimen; Z79.01 Long term (current) use of anticoagulants; Z99.81 Dependence on supplemental oxygen; Z86.718 Personal history of other venous thrombosis and embolism; Z87.891 Personal history of nicotine dependence; Z68.38 Body mass index [BMI] 38.0-38.9, adult
CPT/HCPCS: 70450; 70496; 70498; 70551; 71045; 80048; 80061; 82962; 83036; 84484; 85025; 85610; 85730; 93005; 93306; 96361; 96365; 96366; 97162; 97166; 99218; 99285; J7030; Q9957; Q9967; A4216; G0378

== ENCOUNTER 2020-11-30 12:52 | Outpatient (RCR) | payer MEDICARE, SELFPAY ==
[2020-11-27 15:51] VITALS: BMI 36.5
[2020-11-30] MEDS: COVID-19 VACC, MRNA(PFIZER)/PF 30 MCG/0.3 ML SYRINGE IM (11:20)
[2020-12-21] MEDS: COVID-19 VACC, MRNA(PFIZER)/PF 30 MCG/0.3 ML SYRINGE IM (11:15)
== END 2021-02-27 23:59 ==
LOC: IMMUN 12:52
PROVIDERS: PCP Family Medicine; Referring Provider Family Medicine; Visit Provider Family Medicine
DX: Z23 Encounter for immunization (principal)
CPT/HCPCS: 0001A; 0002A; 91300

== ENCOUNTER 2020-12-13 16:07 | Emergency (ER) | payer MEDICARE, SELFPAY ==
[2020-11-27 15:51] VITALS: BMI 36.5
[2020-12-13 16:08] VITALS: BP 120/92; PULSE 89; RESP 21; TEMP 36.1; O2SAT 100; BMI 36.9
--- NOTE | 2020-12-13 16:15 | EKG12_ITS ---
Test Reason : WEAKNESS Blood Pressure : / mmHG Vent. Rate : 121 BPM Atrial Rate : 267 BPM P-R Int : 000 ms QRS Dur : 086 ms QT Int : 356 ms P-R-T Axes : 000 -19 059 degrees QTc Int : 505 ms Atrial flutter with variable A-V block Minimal voltage criteria for LVH, may be normal variant Abnormal ECG Confirmed by ANGELES ABRAHAM, ALANA ([id number]), multimedia editor MAUREEN YAÑEZ ([id number]) on 12/15/2020 9:35:30 AM Referred By: RU/UG Confirmed By:BERNARD REYNOSO MD
--- NOTE | 2020-12-13 16:21 | ED.VIS.GEN ---
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 She did not wish to come to the emergency department. Her son called paramedics. She was transported for evaluation. She admits weakness, almost falling and shortness of breath. She denies fever or chills. She does report runny nose. She does complain of head pain. Denies double vision or blurred vision. Denies ringing or ears. She denies sore throat, difficulty swallowing or change in voice. She denies cough. She denies chest pain. She denies abdominal pain, nausea, vomiting or diarrhea. She denies urologic symptoms. Prior similar symptoms: No Recent Illness/Hospitalization: No - Past Medical History (1) Pulmonary hypertension Status: Acute (2) Atherosclerotic heart disease of [place] coronary artery without angina pectoris Status: Chronic (3) COPD (chronic obstructive pulmonary disease) Status: Chronic (4) Diabetes mellitus type 2 in obese Status: Chronic (5) Essential hypertension Status: Chronic (6) GERD (gastroesophageal reflux disease) Status: Chronic (7) Hypothyroidism Status: Chronic (8) PARESH (obstructive sleep apnea) Status: Chronic Comment: non-complaint with CPAP (9) Paroxysmal A-fib Status: Chronic (10) Presence of stent in coronary artery Status: Chronic Comment: PCI/Stent to the prox 1st Diag branch 12/07/2003 Past Medical History - Allergies and Home Meds Allergies/Adverse Reactions: Allergies ciprofloxacin [From Cipro] Allergy (Verified 10/24/20 17:21) Hives latex Allergy (Verified 10/24/20 17:21) matos me niacin [From Niaspan Extended-Release] Allergy (Verified 10/24/20 17:21) Hives ondansetron [From Zofran] Allergy (Verified 10/24/20 17:21) Unknown Xanthines Allergy (Verified 10/24/20 17:21) Unknown orphenadrine citrate [From Norgesic] Adverse Reaction (Verified 10/24/20 17:21) groggy medical tape Adverse Reaction (Uncoded 10/24/20 17:21) blisters Primary Care Physician: Bhupendra Oliveira MD [Primary Care Provider] - Prior records reviewed: Yes Surgical History: angioplasty, cholecystectomy, herniorrhaphy, hysterectomy, - - tubal ligation. Lives: With Family Smoking Status: Former smoker Alcohol: None Drugs: None - Family History Sibling Family History: Family History (Last Reviewed 11/27/20 @ 15:50 by Irene Warner) Mother CAD (coronary artery disease) Father CAD (coronary artery disease) Brother CAD (coronary artery disease) Asthma Sister Hypertension Sister Diabetes Sister Heart disease Family History: Reports: COPD Maternal Family History: Family History (Last Reviewed 11/27/20 @ 15:50 by Irene Warner) Mother CAD (coronary artery disease) Father CAD (coronary artery disease) Brother CAD (coronary artery disease) Asthma Sister Hypertension Sister Diabetes Sister Heart disease Family History: Reports: Heart Disease Paternal Family History: Family History (Last Reviewed 11/27/20 @ 15:50 by Irene Warner) Mother CAD (coronary artery disease) Father CAD (coronary artery disease) Brother CAD (coronary artery disease) Asthma Sister Hypertension Sister Diabetes Sister Heart disease Family History: Reports: Heart Disease, Stroke Offspring Family History: Family History (Last Reviewed 11/27/20 @ 15:50 by Irene Warner) Mother CAD (coronary artery disease) Father CAD (coronary artery disease) Brother CAD (coronary artery disease) Asthma Sister Hypertension Sister Diabetes Sister Heart disease Family History: Reports: No pertinent history Review of Systems General: Reports: Malaise. Denies: Chills, Fever, Sweats Eyes: Denies: Visual changes - bilaterally, Blurred Vision - bilaterally ENT: Reports: Rhinorrhea. Denies: Bilateral ear pain, Sore throat Cardiovascular: Denies: Chest pain, Palpitations Respiratory: Reports: Dyspnea. Denies: Cough, Sputum, Orthopnea, Paroxysmal nocturnal dyspnea Gastrointestinal: Denies: Abdominal pain, Nausea, Vomiting, Diarrhea, Melena, Hematochezia Genitourinary: Denies: Dysuria, Hematuria, Frequency Musculoskeletal: Reports: Swelling. Denies: Myalgias, Arthralgias, Neck pain, Back pain, Extremity Pain, -, - Skin: Denies: Rash, Wounds Neurological: Reports: Headache, Weakness. Denies: Parasthesia, Numbness Endocrine: Denies: Polyuria, Polydipsia Hematologic: Denies: Easy bruising, Easy bleeding Physical Exam Vital Signs/Narrative: Vital Signs Temp Pulse Resp BP Pulse Ox 12/13/20 16:08 97 F L 89 21 H 120/92 H 100 Inital Vital Signs reviewed: Yes General: Well nourished, Well developed, Obese, No Acute Distress Head: Normocephalic, Atraumatic Eyes: Perrl, EOMI. Negative for: Pale conjunctiva, Scleral icterus ENT: Moist mucous membranes, TM's clear, Nasal congestion. Negative for: Sinus tenderness Neck: Supple, Nontender, No lymphadenopathy, No JVD Cardiovascular: No murmurs, Irregular, Tachycardia Respiratory: Rales - Is noted bilaterally at the bases.. Negative for: No distress, CTA bilaterally Abdomen: Soft, Nontender, Nondistended, Normal bowel sounds, No masses Rectal: Deferred Back: Nontender, Normal Inspection, - - Patient does have significant kyphosis. Extremities: Nontender, Edema - Little edema bilaterally Skin: Normal color, No rash Neurological: Alert, Oriented x3, Cranial nerves II-XII grossly intact, Normal Strength, Normal Sensation Psychological: Depressed Diagnostic/Tx/Re-eval Impressions Brain CT 12/13/20 16:26 IMPRESSION: Negative Brain CT without contrast. Electronically Signed: Giorgio Rivas MD at 17:28 EDT Tel , Service support , Chest X-Ray 12/13/20 17:10 IMPRESSION: No active disease per Electronically Signed: Giorgio Rivas MD at 17:25 EDT Tel , Service support , 12/13/20 16:26 CT Head [Brain/Head without Contrast] [CT] Stat 12/13/20 17:10 Chest 1 View (Portable) [RAD] Stat Laboratory Results 12/13/20 12/13/20 12/13/20 16:25 16:25 16:25 WBC 7.1 RBC 3.71 L Hgb 11.3 L Hct 36.5 L MCV 98.4 MCH 30.5 MCHC 31.0 L RDW Std Deviation 53.1 H RDW Coeff of Aubrey 14.7 H Plt Count 249 MPV 10.2 Immature Gran % (Auto) 0.300 Neut % (Auto) 64.7 Lymph % (Auto) 18.0 L [place] % (Auto) 10.8 H Eos % (Auto) 5.6 H Baso % (Auto) 0.6 Absolute Neuts (auto) 4.6 Absolute Lymphs (auto) 1.28 Nucleated RBC % 0 Sodium 141 Potassium 4.5 Chloride 106 Carbon Dioxide 30.0 Anion Gap 5 BUN 38 H Creatinine 1.75 H Estim Creat Clear Calc 25.35 Est GFR (MDRD) Af Amer 37 L Est GFR (MDRD) Non-Af 31 L BUN/Creatinine Ratio 21.7 H Glucose 163 H Calcium 9.3 Troponin I 0.024 B-Natriuretic Peptide 302.7 H Urine Color Urine Clarity Urine pH Ur Specific Nelson Urine Protein Urine Glucose (UA) Urine Ketones Urine Occult Blood Urine Nitrite Urine Bilirubin Urine Urobilinogen Ur Leukocyte Esterase Urine RBC Urine WBC Ur Squamous Epith Cells Urine Bacteria Urine Mucus 12/13/20 17:10 WBC RBC Hgb Hct MCV MCH MCHC RDW Std Deviation RDW Coeff of Aubrey Plt Count MPV Immature Gran % (Auto) Neut % (Auto) Lymph % (Auto) [place] % (Auto) Eos % (Auto) Baso % (Auto) Absolute Neuts (auto) Absolute Lymphs (auto) Nucleated RBC % Sodium Potassium Chloride Carbon Dioxide Anion Gap BUN Creatinine Estim Creat Clear Calc Est GFR (MDRD) Af Amer Est GFR (MDRD) Non-Af BUN/Creatinine Ratio Glucose Calcium Troponin I B-Natriuretic Peptide Urine Color Yellow Urine Clarity Clear Urine pH 6.0 Ur Specific Nelson 1.010 Urine Protein Negative Urine Glucose (UA) Normal Urine Ketones Negative Urine Occult Blood Negative Urine Nitrite Negative Urine Bilirubin Negative Urine Urobilinogen Normal Ur Leukocyte Esterase 25 H Urine RBC 0 SEEN Urine WBC 0-5 SEEN Ur Squamous Epith Cells 0-5 SEEN Urine Bacteria 0 SEEN Urine Mucus 0 SEEN Work-up is unremarkable for metabolic, infectious cause of her symptoms. Furthermore CT reveals no evidence of bleed. Per family number she hit her head yesterday. - EKG Initial EKG Interpretation: Atrial Fibrillation - Fibrillation with a ventricular rate of 121. QRS duration 86 ms. QT duration 3 and 56 ms. [place] is normal. - Medical Decision Making With dyspnea rales and in A. fib with RVR need to evaluate for cardiac ischemia, congestive heart failure. I was informed by the nurse that she fell hit her head. Since she is on Eliquis will obtain CT of the head to evaluate for intracranial bleed. 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
--- NOTE | 2020-12-13 16:26 | CT_ITS ---
INDICATION: Head injury on Eliquis EXAMINATION: CT BRAIN - CT Head or Brain W/O Contrast Injection TECHNIQUE: Multiple axial images were obtained of the head without intravenous contrast. A radiation dose optimization technique was used for this scan. IV Contrast dosage and agent: None. COMPARISON: To 321 FINDINGS: BRAIN PARENCHYMA: No intra- or extra-axial hemorrhage. No evidence of acute infarct. No intracranial mass or mass effect. There is preservation of the urban/white matter interface. Posterior fossa structures are unremarkable. CSF SPACES: Appropriate for age. No hydrocephalus. Basal cisterns are patent. CALVARIUM, SKULL BASE, PARANASAL SINUSES AND MASTOID AIR CELLS: Clear. No discrete lytic or blastic abnormalities. ORBITS: Both globes, extraocular muscles, optic nerves and retrobulbar fat appear unremarkable. ASPECTS Score for Acute Strokes: 07/01 CT/Brain/Head without Contrast IMPRESSION: Negative Brain CT without contrast. Electronically Signed: Giorgio Rivas MD at 17:28 EDT Tel , Service support ,
[2020-12-13 16:41] LABS: Absolute Lymphocyte Count 1.28 X10^3/uL (0.83-4.51); Absolute Neutrophil Count 4.6 X10^3/uL (2.0-7.7); Basophil# 0.04 X10^3/uL; Basophil% 0.6 % (0-1); Eosinophils% 5.6 % (0-5); Hematocrit 36.5 % (37-47); Hemoglobin 11.3 g/dL (12.0-15.0); Lymphocyte # 1.28 X10^3/ul (4.0); Mean Corpuscular Hgb 30.5 pg (27.0-32.0); Mean Corpuscular Volume 98.4 fL (81-99); Mean Platelet Vol. 10.2 fl (6.2-12.0); Monocyte# 0.77 X10^3/uL; Monocyte% 10.8 % (0-10); NRBC Flagged by Analyzer 0 % (0-5); Neutrophil # 4.59 X10^3/uL (2.7-7.7); Neutrophil % 64.7 % (47-70); Platelet Count 249 K/mm3 (150-450); RBC Distribution Width CV 14.7 % (11.6-14.6); RBC Distribution Width SD 53.1 fl (35.1-43.9); Red Blood Count 3.71 M/mm3 (4.2-5.4); White Blood Count 7.1 K/mm3 (4.4-11.0)
--- NOTE | 2020-12-13 17:10 | RAD_ITS ---
STUDY: X-RAY CHEST REASON FOR EXAM: Female, 65 years old. Dyspnea and bilateral rales TECHNIQUE: Single AP portable view of the chest. COMPARISON: FINDINGS: The lungs are clear and expanded. There is no demonstrated pleural abnormality. There is moderate cardiac enlargement. Normal mediastinum and tracie. Normal visualized pulmonary arteries. Normal visualized aortic arch and descending thoracic aorta. Normal visualized thoracic spine. Normal visualized ribs, clavicles, and shoulders. There is no demonstrated abnormality of the visualized soft tissue structures of the upper abdomen. RAD/Chest 1 View (Portable) IMPRESSION: No active disease per Electronically Signed: Giorgio Rivas MD at 17:25 EDT Tel , Service support ,
[2020-12-13 17:23] LABS: Bacteria 0 SEEN /hpf (None Seen); Mucous, Urine 0 SEEN /hpf (<or=2+); Red Blood Cells-Urine 0 SEEN /hpf (0-5)
[2020-12-13 17:27] LABS: Anion Gap 5 (5-15); BUN 38 mg/dL (7-18); BUN/Creat Ratio 21.7 RATIO (10-20); Calcium,Total 9.3 mg/dL (8.5-10.1); Chloride 106 mmol/L (98-107); Creatinine, Serum 1.75 mg/dL (0.55-1.02); EST Glomerular Filtration Rate 31 mL/min (>60); Est Glom Filt Rate - Afr Amer 37 mL/min (>60); Estimated Creatinine Clearance 25.35 ml/min; Glucose 163 mg/dL (74-106); Potassium 4.5 mmol/L (3.5-5.1); Sodium Level 141 mmol/L (136-145)
[2020-12-13 17:34] LABS: Color, Urine Yellow (Yellow); Glucose, Dipstick Normal (Normal); Ketone-Dipstick Negative (Negative); Leukocyte Esterase-Dipstick 25 /ul (Negative); Nitrite-Dipstick Negative (Negative); Occult Blood-Urine Negative /ul (Negative); Protein-Dipstick Negative (Negative); Urine Bilirubin Dipstick Negative (Negative); Urine Clarity Clear (Clear); Urine Urobilinogen Normal (Normal)
[2020-12-13 17:38] LABS: BNP,B-Type NATRIURETIC PEPTIDE 302.7 pg/mL (0-100)
[2020-12-13 17:42] LABS: Squamous Epithelial Cells - UA 0-5 SEEN /hpf (5-10); White Blood Cells 0-5 SEEN /hpf (0-5)
--- NOTE | 2020-12-13 17:48 | ED.DCSUM_ITS ---
- ER Visit Summary Date of Service: 12/13/20 Chief Complaint: [] History of Present Illness: The patient is a 65 F [] Physical Examination: [] Test Results: [] Emergency Department Course and Treatment: [] Treatment Plan: [] Disposition: [] Impression: [] This note was generated with [employer] dictation software. 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
[2020-12-13 18:24] VITALS: BP 160/79; PULSE 110; RESP 24; O2SAT 100
== END 2020-12-13 18:26 | disposition home or self-care (01) ==
PROVIDERS: Emergency Provider Emergency Medicine; PCP Family Medicine
DX: S09.90XA Unspecified injury of head, initial encounter (principal); W19.XXXA Unspecified fall, initial encounter; Y93.9 Activity, unspecified; Y92.9 Unspecified place or not applicable; Y99.9 Unspecified external cause status; R53.1 Weakness; E11.65 Type 2 diabetes mellitus with hyperglycemia; I48.0 Paroxysmal atrial fibrillation; I27.20 Pulmonary hypertension, unspecified; I25.10 Atherosclerotic heart disease of native coronary artery without angina pectoris; J44.9 Chronic obstructive pulmonary disease, unspecified; I10 Essential (primary) hypertension; E03.9 Hypothyroidism, unspecified; R06.02 Shortness of breath; G47.33 Obstructive sleep apnea (adult) (pediatric); K21.9 Gastro-esophageal reflux disease without esophagitis; E66.9 Obesity, unspecified; Z79.01 Long term (current) use of anticoagulants; Z87.891 Personal history of nicotine dependence; Z95.5 Presence of coronary angioplasty implant and graft
CPT/HCPCS: 70450; 71045; 80048; 81001; 83880; 84484; 85025; 93005; 99285

== ENCOUNTER 2020-12-14 17:57 | Emergency (ER) | payer MEDICARE, MEDICAID, SELFPAY ==
[2020-12-13 16:08] VITALS: BMI 36.9
[2020-12-14 18:07] VITALS: BP 122/98; PULSE 102; RESP 24; TEMP 36.8; O2SAT 100; BMI 37.1
--- NOTE | 2020-12-14 18:56 | EKG12_ITS ---
Test Reason : HEADACHE Blood Pressure : / mmHG Vent. Rate : 113 BPM Atrial Rate : 138 BPM P-R Int : 000 ms QRS Dur : 088 ms QT Int : 346 ms P-R-T Axes : 000 -21 084 degrees QTc Int : 474 ms Atrial fibrillation with rapid ventricular response Minimal voltage criteria for LVH, may be normal variant Abnormal ECG Confirmed by ANGELES ABRAHAM, ALANA ([id number]), desk editor MAUREEN YAÑEZ ([id number]) on 12/18/2020 1:25:23 PM Referred By: BETH Confirmed By:BERNARD REYNOSO MD
[2020-12-14 19:34] LABS: Absolute Lymphocyte Count 1.23 X10^3/uL (0.83-4.51); Absolute Neutrophil Count 4.2 X10^3/uL (2.0-7.7); Basophil# 0.03 X10^3/uL; Basophil% 0.4 % (0-1); Eosinophil# 0.44 X10^3/uL; Eosinophils% 6.6 % (0-5); Hematocrit 33.8 % (37-47); Hemoglobin 10.7 g/dL (12.0-15.0); Lymphocyte # 1.23 X10^3/ul (4.0); Lymphocyte % 18.4 % (19-41); Mean Corp Hgb Conc 31.7 g/dL (32-36); Mean Corpuscular Hgb 30.4 pg (27.0-32.0); Mean Platelet Vol. 9.7 fl (6.2-12.0); Monocyte# 0.79 X10^3/uL; Monocyte% 11.8 % (0-10); NRBC Flagged by Analyzer 0 % (0-5); Neutrophil # 4.19 X10^3/uL (2.7-7.7); Neutrophil % 62.5 % (47-70); Platelet Count 217 K/mm3 (150-450); RBC Distribution Width SD 51.4 fl (35.1-43.9); Red Blood Count 3.52 M/mm3 (4.2-5.4); White Blood Count 6.7 K/mm3 (4.4-11.0)
[2020-12-14] MEDS: Metoprolol Tartrate 100 MG Tablet PO (19:37)
[2020-12-14 19:51] LABS: Anion Gap 6 (5-15); BUN 37 mg/dL (7-18); Calcium,Total 8.7 mg/dL (8.5-10.1); Chloride 106 mmol/L (98-107); Creatinine, Serum 1.54 mg/dL (0.55-1.02); EST Glomerular Filtration Rate 36 mL/min (>60); Est Glom Filt Rate - Afr Amer 43 mL/min (>60); Glucose 96 mg/dL (74-106); Potassium 4.1 mmol/L (3.5-5.1); Sodium Level 140 mmol/L (136-145)
[2020-12-14 19:59] LABS: BNP,B-Type NATRIURETIC PEPTIDE 231.9 pg/mL (0-100)
--- NOTE | 2020-12-14 20:24 | ED.DCSUM_ITS ---
History of Present Illness Chief Complaint: Headache Informant: Patient Narrative: Patient is evaluated for headaches. Patient had a fall 2 days ago when she was try to get out of bed. Patient states she usually holds onto the banister but she could not reach the banister and this caused her fall. She hit the front of her head. She states she has had a headache every day since. She actually notes that she had a fall couple months ago where she hit the back of her head on a glass table. She is had headaches since. She had multiple head CTs as recently as yesterday which not show any acute process. She has the headache is diffuse and throbbing in nature. She alternates Tylenol and Advil with no relief of her symptoms. Patient is on Eliquis for atrial fibrillation. Patient notes that she chronically gets white spots in her vision but this is unchanged. She has some mild photophobia. She states [id number] medications do help but never completely resolve the headache. She does have intermittently nausea and weakness for the past few months but no vomiting. She does have a remote history of migraines. Patient lives with her son who helps take care of her. She denies any acute complaints. Patient came in for the same complaint yesterday and had a thorough evaluation. Including a head CT. Work-up is largely negative with no acute process. She is discharged home. Apparently patient called her primary care doctor's office today who recommend she come to the ER for repeat evaluation. Past Medical History - Allergies and Home Meds Allergies/Adverse Reactions: Allergies ciprofloxacin [From Cipro] Allergy (Verified 10/24/20 17:21) Hives latex Allergy (Verified 10/24/20 17:21) matos me niacin [From Niaspan Extended-Release] Allergy (Verified 10/24/20 17:21) Hives ondansetron [From Zofran] Allergy (Verified 10/24/20 17:21) Unknown ranolazine [From Ranexa] Allergy (Verified 12/14/20 18:15) Itching Xanthines Allergy (Verified 10/24/20 17:21) Unknown orphenadrine citrate [From Norgesic] Adverse Reaction (Verified 10/24/20 17:21) groggy medical tape Adverse Reaction (Uncoded 10/24/20 17:21) blisters Primary Care Physician: Bhupendra Oliveira MD [Primary Care Provider] - Past Medical History: - - atrial fibrillation, Coronary artery disease, pulmonary hypertension, Diabetes mellitus, hypothyroid, GERD, COPD Surgical History: angioplasty, cholecystectomy, herniorrhaphy, hysterectomy, - - tubal ligation. Smoking Status: Former smoker - Family History Sibling Family History: Family History (Last Reviewed 11/27/20 @ 15:50 by Irene Warner) Mother CAD (coronary artery disease) Father CAD (coronary artery disease) Brother CAD (coronary artery disease) Asthma Sister Hypertension Sister Diabetes Sister Heart disease Family History: Reports: COPD Maternal Family History: Family History (Last Reviewed 11/27/20 @ 15:50 by Irene Warner) Mother CAD (coronary artery disease) Father CAD (coronary artery disease) Brother CAD (coronary artery disease) Asthma Sister Hypertension Sister Diabetes Sister Heart disease Family History: Reports: Heart Disease Paternal Family History: Family History (Last Reviewed 11/27/20 @ 15:50 by Irene Warner) Mother CAD (coronary artery disease) Father CAD (coronary artery disease) Brother CAD (coronary artery disease) Asthma Sister Hypertension Sister Diabetes Sister Heart disease Family History: Reports: Heart Disease, Stroke Offspring Family History: Family History (Last Reviewed 11/27/20 @ 15:50 by Irene Warner) Mother CAD (coronary artery disease) Father CAD (coronary artery disease) Brother CAD (coronary artery disease) Asthma Sister Hypertension Sister Diabetes Sister Heart disease Family History: Reports: No pertinent history Review of Systems General: Reports: Malaise. Denies: Chills, Fever, Sweats Eyes: Reports: - - Mild photophobia. Denies: Visual changes - bilaterally, Diplopia ENT: Denies: Rhinorrhea, Sore throat Cardiovascular: Denies: Chest pain, Palpitations Respiratory: Denies: Dyspnea, Cough, Dyspnea on exertion Gastrointestinal: Denies: Abdominal pain, Nausea, Vomiting, Diarrhea, Melena, Hematochezia Genitourinary: Denies: Dysuria, Hematuria, Frequency Musculoskeletal: Denies: Back pain, Extremity Pain Skin: Denies: Rash, Wounds Neurological: Reports: Headache. Denies: Weakness, Numbness Physical Exam Vital Signs/Narrative: Vital Signs Temp Pulse Resp BP Pulse Ox 12/14/20 18:07 98.2 F 102 H 24 H 122/98 H 100 Inital Vital Signs reviewed: Yes General: Well nourished, Well developed, No Acute Distress Head: Normocephalic, Atraumatic Eyes: Perrl, EOMI ENT: Moist mucous membranes, No rhinorrhea, TM's clear, - - No hemotympanum or other signs of head trauma Neck: Supple, Nontender Cardiovascular: Regular rate, Regular rhythm, No murmurs Respiratory: No distress, CTA bilaterally, Chest nontender Abdomen: Soft, Nontender, Nondistended, Normal bowel sounds Back: Nontender, Normal Inspection Extremities: Nontender, No edema Skin: Normal color, No rash Neurological: Alert, Oriented x3, Cranial nerves II-XII grossly intact, Normal Strength, Normal Sensation. Negative for: Confused, Weakness, Left side facial droop, Right side facial droop Psychological: Normal affect, Normal Mood Diagnostic/Tx/Re-eval Laboratory Data 12/14/20 12/14/20 12/14/20 19:28 19:28 19:28 WBC 6.7 RBC 3.52 L Hgb 10.7 L Hct 33.8 L MCV 96.0 MCH 30.4 MCHC 31.7 L RDW Std Deviation 51.4 H RDW Coeff of Aubrey 15.0 H Plt Count 217 MPV 9.7 Immature Gran % (Auto) 0.300 Neut % (Auto) 62.5 Lymph % (Auto) 18.4 L [place] % (Auto) 11.8 H Eos % (Auto) 6.6 H Baso % (Auto) 0.4 Absolute Neuts (auto) 4.2 Absolute Lymphs (auto) 1.23 Nucleated RBC % 0 Sodium 140 Potassium 4.1 Chloride 106 Carbon Dioxide 28.0 Anion Gap 6 BUN 37 H Creatinine 1.54 H Estim Creat Clear Calc 28.80 Est GFR (MDRD) Af Amer 43 L Est GFR (MDRD) Non-Af 36 L BUN/Creatinine Ratio 24.0 H Glucose 96 Calcium 8.7 Troponin I 0.023 B-Natriuretic Peptide 231.9 H - Rhythm Strip Rhythm Strip: A-fib Rate: 113 Ectopy: None - EKG Initial EKG Interpretation: Atrial Fibrillation, - - Atrial fibrillation at a rate of 113 Left axis deviation Minimal voltage criteria for LVH Normal ST segments Normal QRS and QTc - Medical Decision Making Patient is evaluated for headache. She has been having headaches for the past 2 months at least. She denies any other acute symptoms. It sounds like patient called her primary care doctor today who recommended come to the ER to be evaluated. Patient went to the ER yesterday and was evaluated for the same complaint. At that time she had a head CT and a generalized work-up including chest x-ray, EKG and blood work. She was discharged home after largely negative work-up. Patient did have an elevation of her BNP hypoxic. Patient is currently in atrial fibrillation and continues to be in A. fib. She is given her evening dose of metoprolol in the ER as she is due for it and she started become intermittently tachycardic. Patient has a normal neurologic exam. As she is not had any new injury or symptoms since yesterday I do not think a repeat head CT is indicated. I did recheck lab work to make sure there is no big change or any new cardiac process. I did not recheck her urine since she had that yesterday as well and is not having any urine symptoms. Work-up is largely negative. I did speak with her daughter who is not even aware she was in the ER. I tried to call her son who she lives with but was unable to get a hold of him. Patient I think patient requires admission. She states she feels safe at home. She does not want to be evaluated for skilled nursing placement. Patient is encouraged to follow-up with her primary care doctor. She is counse led that she could have a concussion from her head injury couple months ago and that is why she continues to have headaches. She is not having meningeal signs. Patient is counseled on signs and symptoms requiring return to the emergency room. Patient verbalizes agreement and understand this plan. Patient discharged home in stable and improved condition. ED Disposition - Plan for ED Patient: Disposition: Home or Assisted Living Diagnosis: Headache, Concussion Instructions: ED Concussion, ED Headache Unspecified Referrals: Bhupendra Oliveira MD [Primary Care Provider] - Additional Instructions: Take Tylenol for headaches as needed. Do not take Advil/ibuprofen as this can interact with your blood thinner. Please follow-up with your primary care doctor.
[2020-12-14 21:05] VITALS: BP 162/91; PULSE 72; RESP 18; O2SAT 100
== END 2020-12-14 21:42 | disposition home or self-care (01) ==
PROVIDERS: Emergency Provider Emergency Medicine; PCP Family Medicine
DX: S06.0X0A Concussion without loss of consciousness, initial encounter (principal); W06.XXXA Fall from bed, initial encounter; Y93.9 Activity, unspecified; Y92.9 Unspecified place or not applicable; Y99.9 Unspecified external cause status; I48.91 Unspecified atrial fibrillation; I27.20 Pulmonary hypertension, unspecified; I25.10 Atherosclerotic heart disease of native coronary artery without angina pectoris; J44.9 Chronic obstructive pulmonary disease, unspecified; E11.9 Type 2 diabetes mellitus without complications; E03.9 Hypothyroidism, unspecified; K21.9 Gastro-esophageal reflux disease without esophagitis; Z79.01 Long term (current) use of anticoagulants; Z79.82 Long term (current) use of aspirin; Z79.4 Long term (current) use of insulin; Z79.899 Other long term (current) drug therapy; Z87.891 Personal history of nicotine dependence; R09.02 Hypoxemia
CPT/HCPCS: 36415; 80048; 83880; 84484; 85025; 93005; 99285; A4216

== ENCOUNTER 2021-12-23 23:49 | Emergency (ER) | payer MEDICARE, MEDICAID, SELFPAY ==
[2021-12-23 23:50] VITALS: BP 152/100; PULSE 117; RESP 16; TEMP 35.8; O2SAT 99; BMI 37.0
[2021-12-23 23:53] VITALS: O2SAT 100
--- NOTE | 2021-12-24 00:16 | RAD_ITS ---
STUDY: X-RAY - LEFT KNEE REASON FOR EXAM: Female, 66 years old. pain TECHNIQUE: 3 view(s) of the knee. COMPARISON: None. FINDINGS: There is marked narrowing of the lateral joint compartment on the frontal view. There appears to be some subchondral sclerosis and cyst formation in the lateral tibial plateau. Medial greater than lateral periarticular osteophytes but only mild medial joint compartment narrowing. [place] posterior to the knee. Narrowed patellofemoral joint with periarticular osteophytes. Only slight fluid density in the suprapatellar bursa on the lateral view if any. No convincing acute findings. RAD/Knee 3 Views IMPRESSION: Advanced degenerative change. Slight if any effusion no. Electronically Signed: Harleen Cardenas MD at 1:44 EDT ,
--- NOTE | 2021-12-24 00:16 | RAD_ITS ---
STUDY: X-RAY - PELVIS AND LEFT HIP REASON FOR EXAM: Female, 66 years old. pain TECHNIQUE: 3 total views of the pelvis and hip. AP pelvis and AP and frog-leg lateral views of the left hip. COMPARISON: None. FINDINGS: There are extensive postoperative changes in the pelvis and there are surgical clips over the pelvis suspected to be due to hernia repair. There is no hip or pelvic fracture. Intact pubic symphysis, SI joints, sacral foramen. Question of mildly demineralized bones for age but the hip joint is well-maintained. RAD/HIP, UNI W/ Pelvis 2-3 Views IMPRESSION: No acute findings of the pelvis or left hip. Electronically Signed: Harleen Cardenas MD at 1:49 EDT ,
--- NOTE | 2021-12-24 00:16 | RAD_ITS ---
STUDY: X-RAY - LEFT SHOULDER REASON FOR EXAM: Female, 66 years old. pain TECHNIQUE: 4 view(s) of the shoulder. COMPARISON: None. FINDINGS: Normal glenohumeral articulation. Normal acromioclavicular joint. Normal acromion. Normal humeral head and visualized proximal humerus. The soft tissue structures are unremarkable. Normal visualized pulmonary apex. RAD/Shoulder min 2 Views IMPRESSION: Normal x-ray examination of the shoulder. Electronically Signed: Harleen Cardenas MD at 1:42 EDT ,
--- NOTE | 2021-12-24 00:16 | CT_ITS ---
STUDY: CT BRAIN WITHOUT CONTRAST REASON FOR EXAM: Female, 66 years old. fall on blood thinners RADIATION DOSAGE (If Supplied By Facility): CTDIvol = ( 44.99 ) mGy, DLP = ( 796.11 ) mGycm TECHNIQUE: Transaxial CT imaging of the brain was performed without administration of intravenous contrast material. 3.75 mm axials, 2.5 mm coronal and sagittal reconstructions. Individualized dose optimization techniques were used for this CT. COMPARISON: December 13, 2020. FINDINGS: LIMITATIONS: None. BRAIN: Normal urban/white matter differentiation. Mild cavernous carotid calcifications. Minimal chronic parenchymal changes, mild volume loss. VENTRICLES: No hydrocephalus. EXTRA-AXIAL SPACES: No hemorrhages, fluid collections, or masses. CALVARIUM/SKULL BASE: Normal. FACE/SINUSES: Defect in the cartilaginous nasal septum again noted. Mild mucosal thickening in right maxillary sinus. Tubing in the right nasal cavity again noted, a segment of roughly 2.6 cm x 0.5 cm SOFT TISSUES: Normal. OTHER: None. CT/Brain/Head without Contrast IMPRESSION: No acute intracranial abnormality. Defect of the cartilaginous nasal septum and mild mucosal thickening in a few ethmoid air cells, and in the right maxillary sinus. Tubular foreign body in the right deep nasal cavity, stable. Electronically Signed: Harleen Cardenas MD at 0:57 EDT ,
--- NOTE | 2021-12-24 00:16 | RAD_ITS ---
STUDY: X-RAY - LEFT ELBOW REASON FOR EXAM: Female, 66 years old. pain TECHNIQUE: 3 view(s) of the elbow. COMPARISON: None. FINDINGS: Normal visualized humerus, radius and ulna. Normal radiocapitellar and ulnotrochlear articulations. The soft tissue structures are unremarkable. RAD/Elbow min 3 Views IMPRESSION: Normal x-ray examination of the elbow. Electronically Signed: Harleen Cardenas MD at 1:40 EDT ,
--- NOTE | 2021-12-24 00:16 | RAD_ITS ---
STUDY: X-RAY - UNILATERAL RIBS ( LEFT ) WITH CHEST REASON FOR EXAM: Female, 66 years old. pain TECHNIQUE - RIBS: 4 view(s) of the ribs. TECHNIQUE - CHEST: AP supine view. COMPARISON: Chest radiograph of 12/13/2020. FINDINGS - RIBS: Acute mildly displaced fracture of the lateral left seventh rib. Possible additional minimally displaced fracture of the lateral left third rib. FINDINGS - CHEST: Moderately severe cardiomegaly is present with mild increase in heart size. Thoracic aorta remains mildly elongated. Pulmonary tracie and mediastinum are stable. No acute pulmonary infiltrates or pleural effusions are identified. No pneumothorax is seen. Degenerative spurring noted throughout the thoracic spine. The proximal left humerus is intact. There is no demonstrated abnormality of the visualized soft tissue structures of the upper abdomen. RAD/Ribs Uni Min 3V w/PA Chest IMPRESSION: RIBS: Acute mildly displaced left seventh rib fracture. Questionable left third rib fracture. CHEST: No pneumothorax. Electronically Signed: Jaden Cano MD at 1:43 EDT ,
[2021-12-24] MEDS: proMETHazine 25 MG/ML Syringe 6.25 MG IM (01:00)
[2021-12-24] MEDS: Morphine 4 MG/ML Syringe IV (01:00)
[2021-12-24] MEDS: fentaNYL 100 MCG/2 ML Ampul 50 MCG IV (01:42)
[2021-12-24 02:29] VITALS: BP 144/78; PULSE 74; RESP 18; O2SAT 95
--- NOTE | 2021-12-24 02:34 | EDS_ITS ---
HPI History of Present Illness Chief Complaint: Fall Narrative Narrative: Patient is a 66-year-old female with past medical history of paroxysmal atrial fibrillation currently on Eliquis as well as chronic respiratory failure from COPD on oxygen 14/04. She states earlier this evening about 1 hour prior to arrival she let her dog out to use the restroom. She states her dog tried to run off and as she was walking after it lost her balance and fell landing on her left side. She denies striking her head or any loss of consciousness. She states she was only on the ground for a few minutes prior to help coming. She states that she has pain in her left chest as well as her knee elbow and shoulder. She states she had difficulty walking since the fall to secondary to the pain and therefore comes in for evaluation. [facility] Medical History (Updated 12/24/21 @ 02:[address] Thai Khan, ) Atherosclerotic heart disease of [place] coronary artery without angina pectoris Chronic respiratory insufficiency COPD (chronic obstructive pulmonary disease) DDD (degenerative disc disease) Diabetes mellitus type 2 in obese Essential hypertension Gastroparesis GERD (gastroesophageal reflux disease) History of cervical cancer History of DVT (deep vein thrombosis) Hypothyroidism Lung nodule Mixed hyperlipidemia PARESH (obstructive sleep apnea) Paroxysmal A-fib Presence of stent in coronary artery (~12/07/03) Pulmonary embolism Pulmonary hypertension RLS (restless legs syndrome) Home Medications atorvastatin 40 mg PO QHS 02/03/18 [History Last Taken 12/12/20] duloxetine 60 mg PO DAILY 02/03/18 [History Last Taken 12/13/20] levothyroxine 100 mcg PO DAILY 02/03/18 [History Last Taken 12/13/20] apixaban 2.5 mg PO BID 05/17/18 [History Last Taken 12/13/20] ascorbic acid (vitamin C) 500 mg PO DAILY@1700 05/17/18 [History Last Taken 12/12/20] aspirin 81 mg PO DAILY@1700 09/02/18 [History Last Taken 12/12/20] docusate sodium 100 mg capsule 100 mg PO QHS cap 06/08/19 [History Last Taken 12/12/20] fluticasone propionate 50 mcg/actuation nasal spray,suspension 2 spray INTRANASAL DAILY 06/08/19 [History Last Taken 12/12/20] potassium chloride 10 mEq tablet,extended release 10 meq PO DAILY 06/08/19 [History Last Taken 12/13/20] allopurinol 100 mg tablet 100 mg PO DAILY 08/11/19 [History Last Taken 12/13/20] buspirone 10 mg tablet 10 mg PO TID 08/11/19 [History Last Taken 12/13/20] metformin 500 mg tablet,extended release 24 hr 1,000 mg PO BID tab 12/01/19 [History Last Taken 12/13/20] fexofenadine 180 mg PO DAILY 09/26/20 [History Last Taken 12/13/20] furosemide 20 mg PO BID 10/25/20 [History Last Taken 12/13/20] omeprazole 40 mg PO DAILY 10/25/20 [History Last Taken 12/13/20] cholecalciferol (vitamin D3) 2,000 unit PO DAILY 12/13/20 [History Last Taken 12/12/20] insulin glargine 34 units SC BID 12/13/20 [History Last Taken 12/13/20] insulin lispro 14 unit SC BREAKFAST 12/13/20 [History Last Taken 12/13/20] insulin lispro 20 unit SC LUNCH 12/13/20 [History Last Taken 12/12/20] insulin lispro 24 unit SC DINNER 12/13/20 [History Last Taken 12/12/20] ranolazine 500 mg tablet,extended release,12 hr 500 mg PO BID #180 tab 05/25/21 [Rx Last Taken Unknown] metoprolol tartrate 100 mg tablet 75 mg PO BID tab 06/05/21 [History Last Taken Unknown] nitroglycerin 0.4 mg sublingual tablet 0.4 mg SUBLINGUAL Q5-15M PRN #25 tab 06/05/21 [Rx Last Taken Unknown] isosorbide mononitrate 120 mg tablet,extended release 24 hr 120 mg PO DAILY #90 tab 09/17/21 [Rx Last Taken Unknown] oxycodone-acetaminophen [Percocet] 1 tab PO Q6H PRN 3 Days #12 tab 12/24/21 [Rx Last Taken Unknown] polyethylene glycol 3350 [Miralax] 17 g PO DAILY 30 Days #510 g 12/24/21 [Rx Last Taken Unknown] Allergy/AdvReac Type Severity Reaction Status Date / Time ciprofloxacin [From Cipro] Allergy Hives Verified 06/05/21 16:09 latex Allergy matos me Verified 06/05/21 16:09 niacin Allergy Hives Verified 06/05/21 16:09 [From Niaspan Extended-Release] ondansetron [From Zofran] Allergy Unknown Verified 06/05/21 16:09 ranolazine [From Ranexa] Allergy Itching Verified 06/05/21 16:09 Xanthines Allergy Unknown Verified 06/05/21 16:09 orphenadrine citrate AdvReac groggy Verified 06/05/21 16:09 [From Norgesic] medical tape AdvReac blisters Uncoded 06/05/21 16:09 Family History Mother CAD (coronary artery disease) Father CAD (coronary artery disease) Brother CAD (coronary artery disease) Asthma Sister Hypertension Sister Diabetes Sister Heart disease Surgical History History of cholecystectomy History of hernia repair History of knee surgery History of left heart catheterization (LHC) (~09/28/19) History of nasal surgery History of surgery on wrist History of total abdominal hysterectomy History of tubal ligation Presence of coronary angioplasty implant and graft (~12/07/03) Social History Smoking Status: Former smoker alcohol intake: never substance use type: does not use caffeine: Yes Type: coffee Number of servings: 1 ROS ROS ED Constitutional Constitutional ED: Denies chills or fever(s) ENT ENT ED: Denies sore throat Cardiovascular Cardiovascular: Reports chest pain Respiratory/Chest Respiratory/Chest: Reports cough and dyspnea Gastrointestinal Gastrointestinal: Reports nausea; Denies abdominal pain, diarrhea or vomiting Genitourinary Genitourinary ED: Denies dysuria Musculoskeletal Musculoskeletal: Reports arthralgias and other Details: Positive left shoulder elbow and knee pain ; Denies back pain, myalgias or neck pain Integumentary Reports Abrasions; Denies rash Neurologic Neurologic: Denies headache(s) or paresthesias Hematologic/Lymphatic Hematologic/Lymphatic: Reports easy bleeding and easy bruising EXAM Physical Exam Const Vital Signs: 12/23/21 23:50 12/23/21 23:53 12/23/21 23:54 Temperature 96.5 F L Temperature Source Temporal Pulse Rate 117 H Respiratory Rate 16 Respiratory Effort Normal Non-Labored Short of Breath Labored Accessory Muscle Use Respiratory Depth Normal Shallow Respiratory Pattern Normal Blood Pressure 152/100 H Blood Pressure Mean 117 Pulse Ox 99 100 Oxygen Delivery Method Nasal Cannula Nasal Cannula Nasal Cannula Oxygen Flow Rate (L/min) 3 3 3 12/24/21 02:29 Temperature Temperature Source Pulse Rate 74 Respiratory Rate 18 Respiratory Effort Respiratory Depth Respiratory Pattern Blood Pressure 144/78 H Blood Pressure Mean 100 Pulse Ox 95 Oxygen Delivery Method Room Air Oxygen Flow Rate (L/min) Positive well nourished, well developed and obese General Appearance ED: well developed Nutritional Appearance: obese HEENT Reports moist mucous membranes HEENT Narrative: No signs of depressed or basilar skull fracture Eyes PERRL and EOMs intact bilaterally Neck supple Neck Narrative: No midline pain with palpation no bony deformity or step-off of the cervical spine Chest Wall Chest Narrative: Patient has reproducible left anterior lateral chest wall pain rib regions 6-9 without obvious deformity or crepitance noted Resp normal respiratory effort Resp Narrative: Breath sounds are diminished throughout with diffuse expiratory wheeze consistent with history of COPD Cardio regular rate and regular rhythm GI normal to inspection, nondistended, normoactive bowel sounds, non-tender, non- distended and no masses Auscultation: normoactive bowel sounds Palpation: soft Back/Spine Back/Spine Narrative: No bony deformity or step-off of the thoracic or lumbar spine no midline pain with palpation Extremity Extremity Narrative: Patient has pain with palpation over top the anterior aspect of the left knee and of the left greater trochanter region. There is also pain with palpation of the left elbow and left shoulder. However there is no obvious bony deformity or joint effusion patient has negative sulcus sign the left shoulder as well. The pelvis is stable and there is no shortening or external rotation of either lower extremity Neuro oriented x3 and CN's II-XII intact bilaterally Sensorium / Orientation: alert Psych mental status grossly normal Skin no rashes or lesions noted Skin Narrative: Patient is a superficial abrasion to the left elbow without secondary changes to suggest infection or active bleeding MDM MDM MDM Narrative Medical decision making narrative: Patient presented to the ER with report of a mechanical fall. Therefore I felt no need for cardiac or syncope work-up. As she is on a blood thinner I did elect to perform a head CT which revealed no acute skull fracture or brain bleed. X-rays of the areas that were painful were obtained and revealed a left rib fracture but otherwise no other broken bones or pneumothorax. Patient was given morphine and fentanyl and did have improvement of her pain. The patient was ambulated with a walker which she does use at home and was able to walk with a steady gait. Moreover the patient states she is feeling better and as she is able to ambulate she does not want to be placed in the hospital. Therefore patient will be given pain medication and is otherwise safe for discharge Radiography Diagnostic Testing: Clinical Impression(s) from Imaging Studies Brain CT 12/24/21 00:16 IMPRESSION: No acute intracranial abnormality. Defect of the cartilaginous nasal septum and mild mucosal thickening in a few ethmoid air cells, and in the right maxillary sinus. Tubular foreign body in the right deep nasal cavity, stable. Electronically Signed: Harleen Cardenas MD at 0:57 EDT Reading Location ID and State: [id number] / [place] Tel , Service support , Elbow X-Ray 12/24/21 00:16 IMPRESSION: Normal x-ray examination of the elbow. Electronically Signed: Harleen Cardenas MD at 1:40 EDT Reading Location ID and State: [id number] / [place] Tel , Service support , Hip/Pelvis X-Ray 12/24/21 00:16 IMPRESSION: No acute findings of the pelvis or left hip. Electronically Signed: Harleen Cardenas MD at 1:49 EDT , Knee X-Ray 12/24/21 00:16 IMPRESSION: Advanced degenerative change. Slight if any effusion no. Electronically Signed: Harleen Cardenas MD at 1:44 EDT , Ribs w/Chest X-Ray 12/24/21 00:16 IMPRESSION: RIBS: Acute mildly displaced left seventh rib fracture. Questionable left third rib fracture. CHEST: No pneumothorax. Electronically Signed: Jaden Cano MD at 1:43 EDT , Shoulder X-Ray 12/24/21 00:16 IMPRESSION: Normal x-ray examination of the shoulder. Electronically Signed: Harleen Cardenas MD at 1:42 EDT , X-rays as interpreted by the emergency physician show a displaced left seventh rib fracture without pneumothorax. X-rays of the left shoulder reveal no acute fracture dislocation. X-rays of the left elbow also revealed no acute fracture or dislocation. 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 Instructions: ED Rib Fracture Prescriptions: New oxycodone-acetaminophen [Percocet] 5-325 mg tablet 1 tab PO Q6H PRN (Reason: pain) 3 Days Qty: 12 RF: 0 polyethylene glycol 3350 [Miralax] 17 gram/dose powder 17 g PO DAILY 30 Days Qty: 510 RF: 0 No Action potassium chloride 10 mEq tablet extended release 10 meq PO DAILY RF: 0 docusate sodium 100 mg capsule 100 mg PO QHS RF: 0 fluticasone propionate [Allergy Relief (fluticasone)] 50 mcg/actuation spray,suspension 2 spray INTRANASAL DAILY RF: 0 buspirone 10 mg tablet 10 mg PO TID RF: 0 allopurinol 100 mg tablet 100 mg PO DAILY RF: 0 metformin 500 mg tablet extended release 24 hr 1,000 mg PO BID RF: 0 metoprolol tartrate 100 mg tablet 75 mg PO BID RF: 0 nitroglycerin 0.4 mg tablet, sublingual 0.4 mg sublingual Q5-15M PRN (Reason: chest pain) Qty: 25 RF: 3 atorvastatin 40 MG tablet 40 mg PO QHS RF: 0 levothyroxine 100 MCG tablet 100 mcg PO DAILY RF: 0 duloxetine 60 MG capsule 60 mg PO DAILY RF: 0 ascorbic acid (vitamin C) 500 MG tablet 500 mg PO DAILY@1700 RF: 0 apixaban 2.5 MG tablet 2.5 mg PO BID RF: 0 aspirin 81 MG tablet 81 mg PO DAILY@1700 RF: 0 fexofenadine 180 MG tablet 180 mg PO DAILY RF: 0 omeprazole 40 MG capsule,delayed release(DR/EC) 40 mg PO DAILY RF: 0 furosemide 20 MG tablet 20 mg PO BID RF: 0 cholecalciferol (vitamin D3) 50 MCG capsule 2,000 unit PO DAILY RF: 0 insulin lispro 100 UNIT/ML insulin pen 14 unit SC BREAKFAST RF: 0 insulin lispro 100 UNIT/ML insulin pen 20 unit SC LUNCH RF: 0 insulin lispro 100 UNIT/ML insulin pen 24 unit SC DINNER RF: 0 insulin glargine 100 UNITS/ML insulin pen 34 units SC BID RF: 0 ranolazine 500 mg tablet extended release 12 hr 500 mg PO BID Qty: 180 RF: 3 isosorbide mononitrate 120 mg tablet extended release 24 hr 120 mg PO DAILY Qty: 90 RF: 3 Primary Care Provider: Bhupendra Oliveira Referrals: Bhupendra Oliveira MD [Primary Care Provider] - Disposition Disposition: Home, Self Care Discharge Date/Time: 12/24/21 02:49
[2021-12-24] MEDS: proMETHazine 25 MG Tablet 12.5 MG PO (02:40)
== END 2021-12-24 02:49 | disposition home or self-care (01) ==
PROVIDERS: Emergency Provider Emergency Medicine; PCP Family Medicine; Visit Provider Emergency Medicine
DX: S22.32XA Fracture of one rib, left side, initial encounter for closed fracture (principal); S50.312A Abrasion of left elbow, initial encounter; M25.562 Pain in left knee; M25.512 Pain in left shoulder; W19.XXXA Unspecified fall, initial encounter; Y93.K1 Activity, walking an animal; J44.9 Chronic obstructive pulmonary disease, unspecified; I48.0 Paroxysmal atrial fibrillation; I25.10 Atherosclerotic heart disease of native coronary artery without angina pectoris; E11.9 Type 2 diabetes mellitus without complications; I10 Essential (primary) hypertension; E78.2 Mixed hyperlipidemia; E03.9 Hypothyroidism, unspecified; K21.9 Gastro-esophageal reflux disease without esophagitis; Z79.01 Long term (current) use of anticoagulants; Z79.890 Hormone replacement therapy; Z86.718 Personal history of other venous thrombosis and embolism; Z86.711 Personal history of pulmonary embolism; Z87.891 Personal history of nicotine dependence; Z95.5 Presence of coronary angioplasty implant and graft
CPT/HCPCS: 70450; 71101; 73030; 73080; 73502; 73562; 96372; 96374; 96375; 99285; A4216

== ENCOUNTER 2022-02-23 08:15 | Emergency (ER) | payer MEDICARE, MEDICAID, SELFPAY ==
[2022-02-23 08:16] VITALS: BP 172/120; PULSE 105; RESP 22; TEMP 35.8; O2SAT 97; BMI 37.2
[2022-02-23] MEDS: Oxymetazoline 0.05% 1 SPRAY SPRAY.BTL 2 SPRAY NASAL (08:42)
[2022-02-23 09:02] VITALS: BP 160/100; PULSE 115; RESP 22; O2SAT 100
--- NOTE | 2022-02-23 09:37 | EDS_ITS ---
HPI History of Present Illness Chief Complaint: Nosebleed Narrative Narrative: 67-year-old female with COPD and wears home O2 chronically presenting with epistaxis. She is on Eliquis 2.5 mg p.o. twice daily. She states that this has been intermittently bleeding since yesterday. She states that she usually lets its run its course when she gets a nosebleed and it will stop. She denies any digital trauma. She states she does not know which side started bleeding first but states it is coming out of both nostrils. Denies lightheadedness, dizziness, blurry vision, shortness of breath. Patient also states that due to her epistaxis she did not take her blood pressure medicine today. [facility] Medical History Atherosclerotic heart disease of [place] coronary artery without angina pectoris Chronic respiratory insufficiency COPD (chronic obstructive pulmonary disease) DDD (degenerative disc disease) Diabetes mellitus type 2 in obese Essential hypertension Gastroparesis GERD (gastroesophageal reflux disease) History of cervical cancer History of DVT (deep vein thrombosis) Hypothyroidism Lung nodule Mixed hyperlipidemia PARESH (obstructive sleep apnea) Paroxysmal A-fib Presence of stent in coronary artery (~12/07/03) Pulmonary embolism Pulmonary hypertension RLS (restless legs syndrome) Home Medications atorvastatin 40 mg PO QHS 02/03/18 [History Last Taken 12/12/20] duloxetine 60 mg PO DAILY 02/03/18 [History Last Taken 12/13/20] levothyroxine 100 mcg PO DAILY 02/03/18 [History Last Taken 12/13/20] apixaban 2.5 mg PO BID 05/17/18 [History Last Taken 12/13/20] ascorbic acid (vitamin C) 500 mg PO DAILY@1700 05/17/18 [History Last Taken 12/12/20] aspirin 81 mg PO DAILY@1700 09/02/18 [History Last Taken 12/12/20] docusate sodium 100 mg capsule 100 mg PO QHS cap 06/08/19 [History Last Taken 12/12/20] fluticasone propionate 50 mcg/actuation nasal spray,suspension 2 spray INTRANASAL DAILY 06/08/19 [History Last Taken 12/12/20] potassium chloride 10 mEq tablet,extended release 10 meq PO DAILY 06/08/19 [History Last Taken 12/13/20] allopurinol 100 mg tablet 100 mg PO DAILY 08/11/19 [History Last Taken 12/13/20] buspirone 10 mg tablet 10 mg PO TID 08/11/19 [History Last Taken 12/13/20] fexofenadine 180 mg PO DAILY 09/26/20 [History Last Taken 12/13/20] furosemide 20 mg PO BID 10/25/20 [History Last Taken 12/13/20] omeprazole 40 mg PO DAILY 10/25/20 [History Last Taken 12/13/20] cholecalciferol (vitamin D3) 2,000 unit PO DAILY 12/13/20 [History Last Taken 12/12/20] insulin glargine 34 units SC BID 12/13/20 [History Last Taken 12/13/20] insulin lispro 14 unit SC BREAKFAST 12/13/20 [History Last Taken 12/13/20] insulin lispro 20 unit SC LUNCH 12/13/20 [History Last Taken 12/12/20] insulin lispro 24 unit SC DINNER 12/13/20 [History Last Taken 12/12/20] nitroglycerin 0.4 mg sublingual tablet 0.4 mg SUBLINGUAL Q5-15M PRN #25 tab 06/05/21 [Rx Last Taken Unknown] isosorbide mononitrate 120 mg tablet,extended release 24 hr 120 mg PO DAILY #90 tab 09/17/21 [Rx Last Taken Unknown] oxycodone-acetaminophen [Percocet] 1 tab PO Q6H PRN 3 Days #12 tab 12/24/21 [Rx Last Taken Unknown] polyethylene glycol 3350 [Miralax] 17 g PO DAILY 30 Days #510 g 12/24/21 [Rx Last Taken Unknown] metoprolol tartrate 100 mg tablet 100 mg PO BID #30 tab 01/25/22 [Rx Last Taken Unknown] Allergy/AdvReac Type Severity Reaction Status Date / Time ciprofloxacin [From Cipro] Allergy Hives Verified 02/23/22 08:24 latex Allergy matos me Verified 02/23/22 08:24 niacin Allergy Hives Verified 02/23/22 08:24 [From Niaspan Extended-Release] ondansetron [From Zofran] Allergy Unknown Verified 02/23/22 08:24 ranolazine [From Ranexa] Allergy Itching Verified 02/23/22 08:24 Xanthines Allergy Unknown Verified 02/23/22 08:24 orphenadrine citrate AdvReac groggy Verified 02/23/22 08:24 [From Norgesic] medical tape AdvReac blisters Uncoded 02/23/22 08:24 Family History Mother CAD (coronary artery disease) Father CAD (coronary artery disease) Brother CAD (coronary artery disease) Asthma Sister Hypertension Sister Diabetes Sister Heart disease Surgical History History of cholecystectomy History of hernia repair History of knee surgery History of left heart catheterization (LHC) (~09/28/19) History of nasal surgery History of surgery on wrist History of total abdominal hysterectomy History of tubal ligation Presence of coronary angioplasty implant and graft (~12/07/03) Social History Smoking Status: Former smoker alcohol intake: never substance use type: does not use caffeine: Yes Type: coffee Number of servings: 1 ROS ROS ED Constitutional Constitutional ED: Denies chills or fever(s) Eyes Eyes: Denies blurry vision or diplopia ENT ENT ED: Reports other Details: Epistaxis Cardiovascular Cardiovascular: Denies chest pain or palpitations Respiratory/Chest Respiratory/Chest: Denies cough or dyspnea Gastrointestinal Gastrointestinal: Denies abdominal pain, nausea or vomiting Genitourinary Genitourinary ED: Denies dysuria or hematuria Musculoskeletal Musculoskeletal: Denies myalgias Integumentary Denies rash Neurologic Neurologic: Denies headache(s) or weakness Psychiatric Psychiatric: Denies anxiety or depression EXAM Physical Exam Const Vital Signs: 02/23/22 08:16 02/23/22 09:02 02/23/22 11:10 Temperature 96.4 F L Temperature Source Temporal Pulse Rate 105 H 115 H 95 Respiratory Rate 22 H 22 H 20 H Blood Pressure 172/120 H 160/100 H 178/104 H Blood Pressure Mean 137 120 128 Pulse Ox 97 100 99 Oxygen Delivery Method Nasal Cannula Nasal Cannula Nasal Cannula Oxygen Flow Rate (L/min) 3 3 2 Positive well nourished General Appearance ED: NAD; Negative for pallor HEENT Nose: other Other Details: Epistaxis from bilateral nares Neck no lymphadenopathy and supple Resp normal respiratory effort and clear to auscultation bilaterally Cardio regular rate and regular rhythm Neuro oriented x3 and CN's II-XII intact bilaterally Sensorium / Orientation: alert Skin no rashes or lesions noted General Skin Exam: Negative for jaundice or pallor MDM MDM MDM Narrative Medical decision making narrative: Patient presented with epistaxis. She states this is nontraumatic. She is unsure which side the bleeding started on. Makenna ent is on Eliquis 2.5 mg p.o. twice daily. I had the patient blow her nose and clear the clots out. This does appear to be bleeding more briskly on the left side. Patient's nares were packed with Afrin soaked cotton balls. Compression was applied. After waiting 10 minutes I reevaluated her. She still had some bleeding. I ordered TXA. While she is waiting I repacked her nares with Dianelys mix soaked cotton balls. Compression is applied. Will obtain basic lab work as she states that she has been having intermittent bleeding from yesterday. TXA was atomized. Patient reevaluated at 1030 and no active bleeding. Will monitor. CBC and BMP unremarkable. Patient reevaluated and required a nasal packing for bleeding from the right naris. It is difficult to determine the source of the bleeding, because as soon as she blows her nose to clear the clot she immediately starts wiping her face and I cannot get a good view before it starts bleeding again. I did try this multiple times. At this point I will place a packing to try to get the bleeding controlled. Initially I put in a posterior packing however the patient was unable to tolerate this and it had to be removed. Small anterior packing was placed and she appeared to tolerate this much better. She was reevaluated at noon and she had some minor weeping around the packing and appears that the packing has become slightly dislodged. This was deflated and advanced and her bleeding had stopped. At this point the patient states that she wants to go home. I will give her follow-up with ENT. She was counseled that she can return here. She was also counseled that we do not have ENT coverage and she continues to have bleeding she may need to be transferred to another facility if bleeding cannot be controlled. Impression: 1. Epistaxis Lab Data Attestation: I reviewed the patient's lab results. Labs: Laboratory Results - last 24 hr 02/23/22 02/23/22 09:50 09:50 WBC 12.4 H RBC 3.75 L Hgb 11.2 L Hct 35.4 L MCV 94.4 MCH 29.9 MCHC 31.6 L RDW Std Deviation 47.4 H RDW Coeff of Aubrey 13.9 Plt Count 219 MPV 10.0 Immature Gran % (Auto) 0.400 Neut % (Auto) 79.4 H Lymph % (Auto) 8.9 L [place] % (Auto) 7.7 Eos % (Auto) 3.3 Baso % (Auto) 0.3 Absolute Neuts (auto) 9.8 H Absolute Lymphs (auto) 1.10 Nucleated RBC % 0 Sodium 141 Potassium 3.3 L Chloride 106 Carbon Dioxide 29.0 Anion Gap 6 BUN 20 H Creatinine 1.39 H Estim Creat Clear Calc 31.06 Est GFR (MDRD) Af Amer 49 L Est GFR (MDRD) Non-Af 40 L BUN/Creatinine Ratio 14.4 Glucose 281 H Calcium 8.7 Discharge Plan Triage Chief Complaint: Nosebleed ED Provider: Alex Regalado Dx/Rx/DC Orders Instructions: Nosebleed Prescriptions: No Action potassium chloride 10 mEq tablet extended release 10 meq PO DAILY RF: 0 docusate sodium 100 mg capsule 100 mg PO QHS RF: 0 fluticasone propionate [Allergy Relief (fluticasone)] 50 mcg/actuation spray,suspension 2 spray INTRANASAL DAILY RF: 0 buspirone 10 mg tablet 10 mg PO TID RF: 0 allopurinol 100 mg tablet 100 mg PO DAILY RF: 0 nitroglycerin 0.4 mg tablet, sublingual 0.4 mg sublingual Q5-15M PRN (Reason: chest pain) Qty: 25 RF: 3 atorvastatin 40 MG tablet 40 mg PO QHS RF: 0 levothyroxine 100 MCG tablet 100 mcg PO DAILY RF: 0 duloxetine 60 MG capsule 60 mg PO DAILY RF: 0 ascorbic acid (vitamin C) 500 MG tablet 500 mg PO DAILY@1700 RF: 0 apixaban 2.5 MG tablet 2.5 mg PO BID RF: 0 aspirin 81 MG tablet 81 mg PO DAILY@1700 RF: 0 fexofenadine 180 MG tablet 180 mg PO DAILY RF: 0 omeprazole 40 MG capsule,delayed release(DR/EC) 40 mg PO DAILY RF: 0 furosemide 20 MG tablet 20 mg PO BID RF: 0 cholecalciferol (vitamin D3) 50 MCG capsule 2,000 unit PO DAILY RF: 0 insulin lispro 100 UNIT/ML insulin pen 14 unit SC BREAKFAST RF: 0 insulin lispro 100 UNIT/ML insulin pen 20 unit SC LUNCH RF: 0 insulin lispro 100 UNIT/ML insulin pen 24 unit SC DINNER RF: 0 insulin glargine 100 UNITS/ML insulin pen 34 units SC BID RF: 0 oxycodone-acetaminophen [Percocet] 5-325 mg tablet 1 tab PO Q6H PRN (Reason: pain) 3 Days Qty: 12 RF: 0 polyethylene glycol 3350 [Miralax] 17 gram/dose powder 17 g PO DAILY 30 Days Qty: 510 RF: 0 isosorbide mononitrate 120 mg tablet extended release 24 hr 120 mg PO DAILY Qty: 90 RF: 3 metoprolol tartrate 100 mg tablet 100 mg PO BID Qty: 30 RF: 11 Primary Care Provider: Bhupendra Oliveira Referrals: Mark Howard MD [STAFF PHYSICIAN] - As soon as possible Bhupendra Oliveira MD [Primary Care Provider] - Disposition Disposition: Home, Self Care
[2022-02-23 10:07] LABS: Absolute Neutrophil Count 9.8 X10^3/uL (2.0-7.7); Basophil# 0.04 X10^3/uL; Basophil% 0.3 % (0-1); Eosinophil# 0.41 X10^3/uL; Eosinophils% 3.3 % (0-5); Hematocrit 35.4 % (37-47); Hemoglobin 11.2 g/dL (12.0-15.0); Lymphocyte % 8.9 % (19-41); Mean Corp Hgb Conc 31.6 g/dL (32-36); Mean Corpuscular Hgb 29.9 pg (27.0-32.0); Mean Corpuscular Volume 94.4 fL (81-99); Monocyte# 0.95 X10^3/uL; Monocyte% 7.7 % (0-10); NRBC Flagged by Analyzer 0 % (0-5); Neutrophil # 9.83 X10^3/uL (2.7-7.7); Neutrophil % 79.4 % (47-70); Platelet Count 219 K/mm3 (150-450); RBC Distribution Width CV 13.9 % (11.6-14.6); RBC Distribution Width SD 47.4 fl (35.1-43.9); Red Blood Count 3.75 M/mm3 (4.2-5.4); White Blood Count 12.4 K/mm3 (4.4-11.0)
[2022-02-23 10:15] LABS: Anion Gap 6 (5-15); BUN 20 mg/dL (7-18); BUN/Creat Ratio 14.4 RATIO (10-20); Calcium,Total 8.7 mg/dL (8.5-10.1); Chloride 106 mmol/L (98-107); Creatinine, Serum 1.39 mg/dL (0.55-1.02); EST Glomerular Filtration Rate 40 mL/min (>60); Est Glom Filt Rate - Afr Amer 49 mL/min (>60); Estimated Creatinine Clearance 31.06 ml/min; Glucose 281 mg/dL (74-106); Potassium 3.3 mmol/L (3.5-5.1); Sodium Level 141 mmol/L (136-145)
--- NOTE | 2022-02-23 11:05 | ED.RN ---
blood seaping from right eye. and nose is bleeding out despite the nose calmp. dr hutchison aware, at bedside to place packing.
[2022-02-23 11:10] VITALS: BP 178/104; PULSE 95; RESP 20; O2SAT 99
[2022-02-23] MEDS: Acetaminophen 500 MG Tablet 1000 MG PO (11:46)
== END 2022-02-23 12:52 | disposition home or self-care (01) ==
PROVIDERS: Emergency Provider Student in an Organized Health Care Education/Training Program; PCP Family Medicine; Visit Provider Student in an Organized Health Care Education/Training Program
DX: R04.0 Epistaxis (principal); J44.9 Chronic obstructive pulmonary disease, unspecified; I48.0 Paroxysmal atrial fibrillation; E11.9 Type 2 diabetes mellitus without complications; Z79.4 Long term (current) use of insulin; I25.10 Atherosclerotic heart disease of native coronary artery without angina pectoris; E78.2 Mixed hyperlipidemia; I10 Essential (primary) hypertension; E03.9 Hypothyroidism, unspecified; K21.9 Gastro-esophageal reflux disease without esophagitis; G47.33 Obstructive sleep apnea (adult) (pediatric); Z99.81 Dependence on supplemental oxygen; Z79.01 Long term (current) use of anticoagulants; Z79.82 Long term (current) use of aspirin; Z79.890 Hormone replacement therapy; Z79.899 Other long term (current) drug therapy; Z87.891 Personal history of nicotine dependence; Z86.718 Personal history of other venous thrombosis and embolism; Z95.5 Presence of coronary angioplasty implant and graft
CPT/HCPCS: 30901; 80048; 85025; 99284; A4216

== ENCOUNTER → 2022-06-12 | Outpatient (CLI) | payer MEDICARE, MEDICAID, SELFPAY ==
[2022-06-12 15:32] LABS: Absolute Lymphocyte Count 0.87 X10^3/uL (0.83-4.51); Absolute Neutrophil Count 4.2 X10^3/uL (2.0-7.7); Basophil# 0.02 X10^3/uL; Basophil% 0.3 % (0-1); Eosinophil# 0.29 X10^3/uL; Eosinophils% 4.7 % (0-5); Hematocrit 39.2 % (37-47); Hemoglobin 12.2 g/dL (12.0-15.0); Lymphocyte # 0.87 X10^3/ul (0.83-4.51); Lymphocyte % 14.2 % (19-41); Mean Corp Hgb Conc 31.1 g/dL (32-36); Mean Corpuscular Hgb 29.9 pg (27.0-32.0); Mean Corpuscular Volume 96.1 fL (81-99); Mean Platelet Vol. 10.2 fl (6.2-12.0); Monocyte# 0.75 X10^3/uL; Monocyte% 12.2 % (0-10); NRBC Flagged by Analyzer 0 % (0-5); Neutrophil # 4.18 X10^3/uL (2.7-7.7); Neutrophil % 68.3 % (47-70); Platelet Count 194 K/mm3 (150-450); RBC Distribution Width CV 15.2 % (11.6-14.6); RBC Distribution Width SD 54.3 fl (35.1-43.9); Red Blood Count 4.08 M/mm3 (4.2-5.4); White Blood Count 6.1 K/mm3 (4.4-11.0)
[2022-06-12 15:41] LABS: Anion Gap 2 (5-15); BUN 17 mg/dL (7-18); Calcium,Total 9.1 mg/dL (8.5-10.1); Chloride 109 mmol/L (98-107); Creatinine, Serum 1.13 mg/dL (0.55-1.02); EST Glomerular Filtration Rate 51 mL/min (>60); Est Glom Filt Rate - Afr Amer 62 mL/min (>60); Glucose 62 mg/dL (74-106); Potassium 3.8 mmol/L (3.5-5.1); Sodium Level 142 mmol/L (136-145)
== END | disposition home or self-care (01) ==
LOC: LAB 14:56
PROVIDERS: PCP Family Medicine; Referring Provider Physician Assistant Medical; Visit Provider Physician Assistant Medical
DX: I25.10 Atherosclerotic heart disease of native coronary artery without angina pectoris (principal)
CPT/HCPCS: 36415; 80048; 85025

== ENCOUNTER 2022-08-03 17:22 | Inpatient (IN) | payer MEDICARE, MEDICAID, SELFPAY ==
[2022-08-03 17:22] VITALS: BP 159/95; PULSE 85; RESP 16; TEMP 36.6; O2SAT 100; BMI 36.2
--- NOTE | 2022-08-03 17:34 | CT_ITS ---
STUDY: CT BRAIN WITHOUT CONTRAST REASON FOR EXAM: Female, 67 years old. HEADACHE trauma TECHNIQUE: Transaxial CT imaging of the brain was performed without administration of intravenous contrast material. Individualized dose optimization techniques were used for this CT. COMPARISON: 12.24.21 FINDINGS: Defect of the cartilaginous nasal septum and mild mucosal thickening in a few ethmoid air cells may be related to partial ethmoidectomy changes. Tubular foreign body in the right deep nasal cavity maybe a nasal canula or post surgical device. It is stable. There is mild cerebral atrophy with widening of the extra-axial spaces and ventricular dilatation. Normal white matter tracts of the cerebral hemispheres. Normal basal ganglia and thalami. Normal brainstem. Normal cerebellum. There is no intracranial hemorrhage. There are no findings of an acute ischemic infarction. There are calcifications around the carotid artery. These are noted in the cavernous carotid arteries. There is sinus disease. ASPECTS 10 CT/Brain/Head without Contrast IMPRESSION: There are no acute intracranial findings. Electronically Signed: Khris Caicedo MD at 18:22 [facility] ,
--- NOTE | 2022-08-03 17:34 | CT_ITS ---
STUDY: CT Spine Cervical W/O Contrast Injection 08/03/2022 6:22 PM REASON FOR EXAM: Female, 67 years old. NECK PAIN traumaTechnologist Notes FELL INTO WALL AND ONTO BUTTOCKS, HTN, A-FIB, COPD, DB, HEART STENTS HISTORY: NECK PAIN trauma TECHNIQUE: High resolution transaxial imaging was performed without intravenous administration of contrast material. Sagittal and coronal images were reconstructed. Individualized dose optimization techniques were used for this CT. COMPARISON: None FINDINGS: Normal craniovertebral junction. Normal anterior atlantoaxial articulation. Normal odontoid process. Normal cervical lordosis. Normal vertebral bodies and posterior osseous elements. C2-3: Loss of intervertebral disc height. There is endplate spondylosis of the vertebral body. Normal central canal and intervertebral neuroforamina. There is bilateral facet arthropathy. C3-4: Loss of intervertebral disc height. There is endplate spondylosis of the vertebral body. Normal central canal and intervertebral neuroforamina. There is bilateral facet arthropathy. C4-5: Loss of intervertebral disc height. There is endplate spondylosis of the vertebral body. Normal central canal and intervertebral neuroforamina. There is bilateral facet arthropathy. C5-6: Loss of intervertebral disc height. There is endplate spondylosis of the vertebral body. Normal central canal and intervertebral neuroforamina. There is bilateral facet arthropathy. C6-7: Loss of intervertebral disc height. There is endplate spondylosis of the vertebral body. Normal central canal and intervertebral neuroforamina. There is bilateral facet arthropathy. C7-T1: Normal endplates. Normal disc height and morphology. Normal central canal and intervertebral neuroforamina. Normal visualized soft tissue structures. CT/Spine Cervical without Contras IMPRESSION: (NOT LISTED IN ORDER OF SIGNIFICANCE) Multilevel degenerative changes, as described above. Electronically Signed: Khris Caicedo MD at 18:23 EST ,
--- NOTE | 2022-08-03 17:37 | EDS_ITS ---
HPI HPI - Fall History of Present Illness Chief Complaint: Fall Informant: patient Narrative Narrative: Patient presents after a fall. Patient was walking in the hallway of her house. She was feeling normally. She was not feeling ill. Her feet got caught on her oxygen tubing. This caused her to fall forward and then the left into the wall. She hit the wall with her left side and slid down and landed on the floor. She states she mostly landed on her left side but she thinks she might of hit her right knee as there is a little soreness there. She thinks she probably hit her head at least on the wall. There is no loss of consciousness. Nothing makes this better or worse. She does state that she has a little tingling at her left small finger but that area is not hurting. She essentially states that she hurts everywhere on her body. It takes quite some times to try to localize this but even then it is quite difficult. She is alert and oriented x3 though. [facility] Medical History Atherosclerotic heart disease of [place] coronary artery without angina pectoris Broken rib Chronic respiratory insufficiency COPD (chronic obstructive pulmonary disease) DDD (degenerative disc disease) Diabetes mellitus type 2 in obese Essential hypertension Gastroparesis GERD (gastroesophageal reflux disease) History of cervical cancer History of DVT (deep vein thrombosis) Hypothyroidism Lung nodule Mixed hyperlipidemia PARESH (obstructive sleep apnea) Paroxysmal A-fib Presence of stent in coronary artery (~12/07/03) Pulmonary embolism Pulmonary hypertension RLS (restless legs syndrome) Home Medications atorvastatin 40 mg tablet 40 mg PO QHS CHOLESTEROL LOWERING 02/03/18 [History Last Taken 12/12/20] levothyroxine 100 mcg tablet 100 mcg PO DAILY THYROID 02/03/18 [History Last Taken 12/13/20] apixaban 2.5 mg tablet 2.5 mg PO BID Blood thinner 05/17/18 [History Last Taken 12/13/20] ascorbic acid (vitamin C) 500 mg tablet 500 mg PO DAILY@1700 supplement 05/17/18 [History Last Taken 12/12/20] aspirin 81 mg tablet,delayed release 81 mg PO DAILY@1700 Heart 09/02/18 [History Last Taken 12/12/20] potassium chloride 10 mEq tablet,extended release 10 meq PO DAILY supplement 06/08/19 [History Last Taken 12/13/20] allopurinol 100 mg tablet 100 mg PO DAILY gout 08/11/19 [History Last Taken 12/13/20] furosemide 20 mg tablet 20 mg PO BID FLUID 10/25/20 [History Last Taken 12/13/20] omeprazole 40 mg capsule,delayed release 40 mg PO DAILY GERD 10/25/20 [History Last Taken 12/13/20] cholecalciferol (vitamin D3) 50 mcg (2,000 unit) capsule 2,000 unit PO DAILY SUPPLEMENT 12/13/20 [History Last Taken 12/12/20] nitroglycerin 0.4 mg sublingual tablet 0.4 mg sublingual Q5-15M PRN chest pain #25 tabs 06/05/21 [Rx Last Taken Unknown] isosorbide mononitrate 120 mg tablet,extended release 24 hr 120 mg PO DAILY #90 tabs 09/17/21 [Rx Last Taken Unknown] metoprolol tartrate 100 mg tablet 100 mg PO BID Heart Rate #30 tabs 01/25/22 [Rx Last Taken Unknown] buspirone 10 mg tablet 10 mg PO TID depression 06/12/22 [History Last Taken Unknown] docusate sodium 100 mg capsule 100 mg PO QHS PRN constipation 06/12/22 [History Last Taken Unknown] duloxetine 60 mg capsule,delayed release 60 mg PO DAILY MENTAL HEALTH 06/12/22 [History Last Taken Unknown] fexofenadine 180 mg tablet 180 mg PO DAILY 06/12/22 [History Last Taken Unknown] insulin glargine 100 unit/mL (3 mL) subcutaneous pen 42 unit subcut BID DM 06/12/22 [History Last Taken Unknown] insulin lispro 100 unit/mL subcutaneous pen 16 unit subcut BREAKFAST 06/12/22 [History Last Taken Unknown] insulin lispro 100 unit/mL subcutaneous pen 24 unit subcut LUNCH 06/12/22 [History Last Taken Unknown] insulin lispro 100 unit/mL subcutaneous pen 26 unit subcut DINNER 06/12/22 [History Last Taken Unknown] sodium chloride 0.65 % nasal spray aerosol (Saline Mist) 2 spray intranasal DAILY 06/12/22 [History Last Taken Unknown] Allergy/AdvReac Type Severity Reaction Status Date / Time ciprofloxacin [From Cipro] Allergy Hives Verified 06/12/22 13:42 latex Allergy matos me Verified 06/12/22 13:42 niacin Allergy Hives Verified 06/12/22 13:42 [From Niaspan Extended-Release] ondansetron [From Zofran] Allergy Unknown Verified 06/12/22 13:42 ranolazine [From Ranexa] Allergy Itching Verified 06/12/22 13:42 Xanthines Allergy Unknown Verified 06/12/22 13:42 adhesive tape AdvReac Other Verified 06/12/22 13:42 orphenadrine citrate AdvReac groggy Verified 06/12/22 13:42 [From Norgesic] Family History Mother CAD (coronary artery disease) Father CAD (coronary artery disease) Brother CAD (coronary artery disease) Asthma Sister Hypertension Sister Diabetes Sister Heart disease Surgical History History of cholecystectomy History of hernia repair History of knee surgery History of left heart catheterization (LHC) (~09/28/19) History of nasal surgery History of surgery on wrist History of total abdominal hysterectomy History of tubal ligation Presence of coronary angioplasty implant and graft (~12/07/03) Social History Smoking Status: Former smoker alcohol intake: never substance use type: does not use caffeine: Yes Type: coffee Number of servings: 1 ROS ROS ED Constitutional Constitutional ED: Denies chills or fever(s) Eyes Eyes: Denies blurry vision or change in vision ENT ENT ED: Denies sore throat Cardiovascular Cardiovascular: Denies chest pain or palpitations Respiratory/Chest Respiratory/Chest: Denies cough or dyspnea Gastrointestinal Gastrointestinal: Denies nausea or vomiting Genitourinary Genitourinary ED: Denies hematuria Musculoskeletal Musculoskeletal: Reports arthralgias Integumentary Reports Abrasions Neurologic Neurologic: Denies headache(s), paresthesias or weakness Psychiatric Psychiatric: Reports anxiety Hematologic/Lymphatic Hematologic/Lymphatic: Reports easy bleeding and easy bruising Allergic/Immunologic Allergic/Immunologic ED: Denies urticaria EXAM Physical Exam Const Vital Signs: 08/03/22 17:22 08/03/22 17:27 Temperature 97.8 F Temperature Source Oral Pulse Rate 85 Respiratory Rate 16 Respiratory Effort Normal Non-Labored Respiratory Depth Normal Respiratory Pattern Normal Blood Pressure 159/95 H Blood Pressure Mean 116 Pulse Ox 100 Oxygen Delivery Method Room Air Room Air Positive well nourished and well developed Constitutional Narrative: Patient is awake and alert. She is laying on her right side but she states that it feels better. General Appearance ED: well developed HEENT Reports normocephalic HEENT Narrative: I do not see any visible sign of head trauma. There is no notably tender area. I get no spinal tenderness. atraumatic Eyes EOMs intact bilaterally Neck no lymphadenopathy Chest Wall inspection of chest normal Resp normal respiratory effort, no retractions and clear to auscultation bilaterally Resp Narrative: No apparent pain with palpation or deep breaths. Cardio regular rate and regular rhythm GI non-tender Back/Spine no CVA tenderness Back/Spine Narrative: I am not getting any back or spinal tenderness. Extremity Extremity Narrative: I find a small abrasion to the posterior aspect of the left upper arm. I am not seeing any other abrasions or contusions on her. But she has diffuse areas of mild tenderness or pain. X-rays are done of these areas. There are no deformities noted. Neuro oriented x3, no focal motor deficits and no sensory deficits noted Neuro Narrative: She states her left small finger is tingly but her sensation seems intact on exam. Sensorium / Orientation: oriented to person, oriented to place and oriented to time; Negative for confused or lethargic Psych mental status grossly normal Skin Skin Narrative: Abrasion as above. Trauma: abrasion MDM MDM MDM Narrative Medical decision making narrative: X-rays show left inner troches fracture. So far blood work shows a normal CBC. I am pending other results. Patient did take her Eliquis this morning but has not taken it this evening. I did discuss case with orthopedic surgeon, Dr. Chowdhury. I have hospitalist on page. Lab Data Attestation: I reviewed the patient's lab results. Labs: Laboratory Results - last 24 hr 08/03/22 18:50 WBC 9.6 RBC 4.28 Hgb 12.9 Hct 40.6 MCV 94.9 MCH 30.1 MCHC 31.8 L RDW Std Deviation 49.4 H RDW Coeff of Aubrey 14.4 Plt Count 202 MPV 10.2 Immature Gran % (Auto) 0.700 Neut % (Auto) 77.1 H Lymph % (Auto) 11.9 L Angelina % (Auto) 7.6 Eos % (Auto) 2.3 Baso % (Auto) 0.4 Absolute Neuts (auto) 7.4 Absolute Lymphs (auto) 1.15 Nucleated RBC % 0 Radiography Diagnostic Testing: Clinical Impression(s) from Imaging Studies Brain CT 08/03/22 17:34 IMPRESSION: There are no acute intracranial findings. Electronically Signed: Khris Caicedo MD at 18:22 EST , Cervical Spine CT 08/03/22 17:34 IMPRESSION: (NOT LISTED IN ORDER OF SIGNIFICANCE) Multilevel degenerative changes, as described above. Electronically Signed: Khris Caicedo MD at 18:23 EST Reading Location ID and State: [facility] / [place] , Service support , Chest X-Ray 08/03/22 18:00 IMPRESSION: There are no acute findings. Electronically Signed: Khris Caicedo MD at 18:40 EST Reading Location ID and State: [employer] [email or web address] / [place] , Service support , Femur X-Ray 08/03/22 18:00 IMPRESSION: Impacted left intertrochanteric fracture. Electronically Signed: Khris Caicedo MD at 18:41 EST , Femur X-Ray 08/03/22 18:00 IMPRESSION: Negative right femur x-rays. Electronically Signed: Khris Caicedo MD at 18:38 EST , Forearm X-Ray 08/03/22 18:00 IMPRESSION: Normal x-ray examination of the radius and ulna. Electronically Signed: Khris Caicedo MD at 18:37 EST Reading Location ID and State: [facility] / [place] , Service support , Humerus X-Ray 08/03/22 18:00 IMPRESSION: Negative left humerus x-rays. Electronically Signed: Khris Caicedo MD at 18:36 EST Reading Location ID and State: [facility] / [place] , Service support , Pelvis X-Ray 08/03/22 18:00 IMPRESSION: Left impacted intertrochanteric fracture. Electronically Signed: Khris Caicedo MD at 18:39 EST Reading Location ID and State: [facility] / [place] , Service support , Tibia/Fibula X-Ray 08/03/22 18:00 IMPRESSION: Negative left tibia and fibula x-rays. Electronically Signed: Khris Caicedo MD at 18:37 EST Reading Location ID and State: [facility] / [place] , Service support , Tibia/Fibula X-Ray 08/03/22 18:00 IMPRESSION: Negative right tibia and fibula x-rays. Electronically Signed: Khris Caicedo MD at 18:37 EST , Bilateral tib-fib femur pelvis x-ray left humerus left forearm CTA head and neck were looked at by me and read by radiology. She has a left intertrochanteric fracture. No other acute process noted. Discharge Plan Dx/Rx/DC Orders Clinical Impression: Fall at home, Closed intertrochanteric fracture of left femur, Coagulopathy, Contusion of multiple sites Disposition Disposition: Acute Care Hospital [facility]
--- NOTE | 2022-08-03 18:00 | RAD_ITS ---
EXAM: XR RIGHT TIBIA AND FIBULA, 2 VIEWS CLINICAL INDICATION: PAIN TECHNIQUE: Frontal and lateral views of the right tibia and fibula. This report was created using [employer] report generation technology. COMPARISON: None. FINDINGS: BONES/JOINTS: Unremarkable. No acute fracture. No subluxation. Normal alignment. Preservation of the joint space. No sclerotic or destructive changes observed. SOFT TISSUES: Unremarkable. No soft tissue swelling or gas. No radiopaque foreign body. RAD/Tibia & Fibula 2 Views IMPRESSION: Negative right tibia and fibula x-rays. Electronically Signed: Khris Caicedo MD at 18:37 EST ,
--- NOTE | 2022-08-03 18:00 | RAD_ITS ---
STUDY: XR Pelvis 1 or 2 Views 08/03/2022 6:07 PM REASON FOR EXAM: Female, 67 years old. trauma Pain TECHNIQUE: XR Pelvis 1 or 2 Views COMPARISON: None FINDINGS: There is a non-specific bowel gas pattern. Normal visualized soft tissue structures.There are degenerative changes of the lumbar spine. Normal bilateral iliac wings, sacroiliac joints and visualized sacrum. Normal visualized bilateral superior and inferior pubic rami. Normal pubic symphysis. Normal ischial tuberosities. Normal visualized right femoral head. Normal right acetabulum. Normal right hip joint. Left impacted intertrochanteric fracture. Left lesser trochanter is displaced. No dislocation. Normal left acetabulum. Normal left hip joint. RAD/Pelvis 1 or 2 Views IMPRESSION: Left impacted intertrochanteric fracture. Electronically Signed: Khris Caicedo MD at 18:39 EST ,
--- NOTE | 2022-08-03 18:00 | RAD_ITS ---
EXAM: XR LEFT FEMUR, 2 VIEWS CLINICAL INDICATION: trauma pain TECHNIQUE: Frontal and lateral views of the left femur. This report was created using [employer] report generation technology. COMPARISON: None. FINDINGS: BONES/JOINTS: Impacted left intertrochanteric fracture. Lesser trochanter fracture fragment is displaced medially. Preservation of the joint space. No sclerotic or destructive changes observed. SOFT TISSUES: Unremarkable. No soft tissue swelling or gas. No radiopaque foreign body. RAD/Femur Min 2 Views IMPRESSION: Impacted left intertrochanteric fracture. Electronically Signed: Khris Caicedo MD at 18:41 EST ,
--- NOTE | 2022-08-03 18:00 | RAD_ITS ---
EXAM: XR RIGHT FEMUR, 2 VIEWS CLINICAL INDICATION: FALL TECHNIQUE: Frontal and lateral views of the right femur. This report was created using [employer] report generation technology. COMPARISON: None. FINDINGS: BONES/JOINTS: Unremarkable. No acute fracture. No subluxation. Normal alignment. Preservation of the joint space. No sclerotic or destructive changes observed. SOFT TISSUES: Unremarkable. No soft tissue swelling or gas. No radiopaque foreign body. RAD/Femur Min 2 Views IMPRESSION: Negative right femur x-rays. Electronically Signed: Khris Caicedo MD at 18:38 EST ,
--- NOTE | 2022-08-03 18:00 | RAD_ITS ---
EXAM: XR LEFT HUMERUS, 2 OR MORE VIEWS CLINICAL INDICATION: trauma TECHNIQUE: Frontal and lateral views of the left humerus. This report was created using [employer] report generation technology. COMPARISON: None. FINDINGS: BONES/JOINTS: Unremarkable. No acute fracture. No subluxation. Normal alignment. Preservation of the joint space. No sclerotic or destructive changes observed. SOFT TISSUES: Unremarkable. No soft tissue swelling or gas. No radiopaque foreign body. RAD/Humerus min 2 Views IMPRESSION: Negative left humerus x-rays. Electronically Signed: Khris Caicedo MD at 18:36 EST ,
--- NOTE | 2022-08-03 18:00 | RAD_ITS ---
STUDY: XR Chest 1 View 08/03/2022 6:07 PM REASON FOR EXAM: Female, 67 years old. CHEST PAIN PRE OP COMPARISON: 4.4.22 TECHNIQUE: XR Chest 1 View FINDINGS: There is no demonstrated pleural abnormality. Enlarged heart size. Normal mediastinum. Normal tracie. Prominent appearing increased interstitial lung markings. Normal visualized pulmonary arteries. There is atherosclerotic calcification of the aortic arch with tortuosity. There are diffuse degenerative changes of the visualized thoracic spine. There is degenerative osteoarthritis of the bilateral shoulders. There is no demonstrated abnormality of the visualized soft tissue structures of the upper abdomen. RAD/Chest 1 View IMPRESSION: There are no acute findings. Electronically Signed: Khris Caicedo MD at 18:40 EST ,
--- NOTE | 2022-08-03 18:00 | RAD_ITS ---
STUDY: X-RAY XR Forearm 2 Views REASON FOR EXAM: Female, 67 years old. PAIN TECHNIQUE: XR Forearm 2 Views LEFT COMPARISON: None. FINDINGS: There is no demonstrated soft tissue swelling. Normal visualized radius. Normal visualized ulna. RAD/Forearm 2 Views IMPRESSION: Normal x-ray examination of the radius and ulna. Electronically Signed: Khris Caicedo MD at 18:37 EST ,
--- NOTE | 2022-08-03 18:00 | RAD_ITS ---
EXAM: XR LEFT TIBIA AND FIBULA, 2 VIEWS CLINICAL INDICATION: trauma TECHNIQUE: Frontal and lateral views of the left tibia and fibula. This report was created using [employer] report generation technology. COMPARISON: None. FINDINGS: BONES/JOINTS: Unremarkable. No acute fracture. No subluxation. Normal alignment. Preservation of the joint space. No sclerotic or destructive changes observed. SOFT TISSUES: Unremarkable. No soft tissue swelling or gas. No radiopaque foreign body. RAD/Tibia & Fibula 2 Views IMPRESSION: Negative left tibia and fibula x-rays. Electronically Signed: Khris Caicedo MD at 18:37 EST ,
[2022-08-03 19:01] LABS: Absolute Lymphocyte Count 1.15 X10^3/uL (0.83-4.51); Absolute Neutrophil Count 7.4 X10^3/uL (2.0-7.7); Basophil# 0.04 X10^3/uL; Basophil% 0.4 % (0-1); Eosinophil# 0.22 X10^3/uL; Eosinophils% 2.3 % (0-5); Hematocrit 40.6 % (37-47); Hemoglobin 12.9 g/dL (12.0-15.0); Lymphocyte # 1.15 X10^3/ul (0.83-4.51); Lymphocyte % 11.9 % (19-41); Mean Corp Hgb Conc 31.8 g/dL (32-36); Mean Corpuscular Hgb 30.1 pg (27.0-32.0); Mean Corpuscular Volume 94.9 fL (81-99); Mean Platelet Vol. 10.2 fl (6.2-12.0); Monocyte# 0.73 X10^3/uL; Monocyte% 7.6 % (0-10); NRBC Flagged by Analyzer 0 % (0-5); Neutrophil # 7.43 X10^3/uL (2.7-7.7); Neutrophil % 77.1 % (47-70); Platelet Count 202 K/mm3 (150-450); RBC Distribution Width CV 14.4 % (11.6-14.6); RBC Distribution Width SD 49.4 fl (35.1-43.9); Red Blood Count 4.28 M/mm3 (4.2-5.4); White Blood Count 9.6 K/mm3 (4.4-11.0)
[2022-08-03] MEDS: Morphine 4 MG/ML Syringe IV ×2 (19:05→20:25)
[2022-08-03 19:16] LABS: Anion Gap 5 (5-15); BUN 18 mg/dL (7-18); BUN/Creat Ratio 13.8 RATIO (10-20); Calcium,Total 9.6 mg/dL (8.5-10.1); Chloride 106 mmol/L (98-107); EST Glomerular Filtration Rate 43 mL/min (>60); Est Glom Filt Rate - Afr Amer 53 mL/min (>60); Estimated Creatinine Clearance 33.21 ml/min; Glucose 135 mg/dL (74-106); Potassium 4.5 mmol/L (3.5-5.1); Sodium Level 141 mmol/L (136-145)
--- NOTE | 2022-08-03 19:55 | PCM.HP.STD ---
HPI - General General Date of Admission: 08/03/22 Date of Service: 08/03/22 Chief Complaint: leg pain HPI Narrative RUI PANDA, is a 67 F who presents with leg pain. Patient got wrapped around her oxygen tubing and fell. She hit the wall and then hit the floor. Patient complaining of pain all over, including her back her legs or arms. Patient very anxious and just recently received some morphine so is not a good historian at this time, therefore, much of the history is obtained through the emergency room physician. Patient was x-rayed legs, pelvis, humerus, forearms chest x-ray cervical spine CT, head CT. But was found to the patient had a left impacted intertrochanteric hip fracture. [facility] Medical History Atherosclerotic heart disease of [place] coronary artery without angina pectoris Broken rib Chronic respiratory insufficiency COPD (chronic obstructive pulmonary disease) DDD (degenerative disc disease) Diabetes mellitus type 2 in obese Essential hypertension Gastroparesis GERD (gastroesophageal reflux disease) History of cervical cancer History of DVT (deep vein thrombosis) Hypothyroidism Lung nodule Mixed hyperlipidemia PARESH (obstructive sleep apnea) Paroxysmal A-fib Presence of stent in coronary artery (~12/07/03) Pulmonary embolism Pulmonary hypertension RLS (restless legs syndrome) Home Medications atorvastatin 40 mg tablet 40 mg PO QHS CHOLESTEROL LOWERING 02/03/18 [History Last Taken 12/12/20] levothyroxine 100 mcg tablet 100 mcg PO DAILY THYROID 02/03/18 [History Last Taken 12/13/20] apixaban 2.5 mg tablet 2.5 mg PO BID Blood thinner 05/17/18 [History Last Taken 12/13/20] ascorbic acid (vitamin C) 500 mg tablet 500 mg PO DAILY@1700 supplement 05/17/18 [History Last Taken 12/12/20] aspirin 81 mg tablet,delayed release 81 mg PO DAILY@1700 Heart 09/02/18 [History Last Taken 12/12/20] potassium chloride 10 mEq tablet,extended release 10 meq PO DAILY supplement 06/08/19 [History Last Taken 12/13/20] allopurinol 100 mg tablet 100 mg PO DAILY gout 08/11/19 [History Last Taken 12/13/20] furosemide 20 mg tablet 20 mg PO BID FLUID 10/25/20 [History Last Taken 12/13/20] omeprazole 40 mg capsule,delayed release 40 mg PO DAILY GERD 10/25/20 [History Last Taken 12/13/20] cholecalciferol (vitamin D3) 50 mcg (2,000 unit) capsule 2,000 unit PO DAILY SUPPLEMENT 12/13/20 [History Last Taken 12/12/20] nitroglycerin 0.4 mg sublingual tablet 0.4 mg sublingual Q5-15M PRN chest pain #25 tabs 06/05/21 [Rx Last Taken Unknown] isosorbide mononitrate 120 mg tablet,extended release 24 hr 120 mg PO DAILY #90 tabs 09/17/21 [Rx Last Taken Unknown] metoprolol tartrate 100 mg tablet 100 mg PO BID Heart Rate #30 tabs 01/25/22 [Rx Last Taken Unknown] buspirone 10 mg tablet 10 mg PO TID depression 06/12/22 [History Last Taken Unknown] docusate sodium 100 mg capsule 100 mg PO QHS PRN constipation 06/12/22 [History Last Taken Unknown] duloxetine 60 mg capsule,delayed release 60 mg PO DAILY MENTAL HEALTH 06/12/22 [History Last Taken Unknown] fexofenadine 180 mg tablet 180 mg PO DAILY 06/12/22 [History Last Taken Unknown] insulin glargine 100 unit/mL (3 mL) subcutaneous pen 42 unit subcut BID DM 06/12/22 [History Last Taken Unknown] insulin lispro 100 unit/mL subcutaneous pen 16 unit subcut BREAKFAST 06/12/22 [History Last Taken Unknown] insulin lispro 100 unit/mL subcutaneous pen 24 unit subcut LUNCH 06/12/22 [History Last Taken Unknown] insulin lispro 100 unit/mL subcutaneous pen 26 unit subcut DINNER 06/12/22 [History Last Taken Unknown] sodium chloride 0.65 % nasal spray aerosol (Saline Mist) 2 spray intranasal DAILY 06/12/22 [History Last Taken Unknown] Allergy/AdvReac Type Severity Reaction Status Date / Time ciprofloxacin [From Cipro] Allergy Hives Verified 06/12/22 13:42 latex Allergy matos me Verified 06/12/22 13:42 niacin Allergy Hives Verified 06/12/22 13:42 [From Niaspan Extended-Release] ondansetron [From Zofran] Allergy Unknown Verified 06/12/22 13:42 ranolazine [From Ranexa] Allergy Itching Verified 06/12/22 13:42 Xanthines Allergy Unknown Verified 06/12/22 13:42 adhesive tape AdvReac Other Verified 06/12/22 13:42 orphenadrine citrate AdvReac groggy Verified 06/12/22 13:42 [From Norgesic] Family History Mother CAD (coronary artery disease) Father CAD (coronary artery disease) Brother CAD (coronary artery disease) Asthma Sister Hypertension Sister Diabetes Sister Heart disease Surgical History History of cholecystectomy History of hernia repair History of knee surgery History of left heart catheterization (LHC) (~09/28/19) History of nasal surgery History of surgery on wrist History of total abdominal hysterectomy History of tubal ligation Presence of coronary angioplasty implant and graft (~12/07/03) Social History Smoking Status: Former smoker alcohol intake: never substance use type: does not use caffeine: Yes Type: coffee Number of servings: 1 ROS ROS Narrative Asked patient about chest pain with exertion, she states that she gets that in the middle and goes down her right ribs. Try to see if she can further clarify that such as if it was worse with deep respirations or not, she could not answer that effectively. Patient very tangential in her speak, does not answer questions appropriately. Therefore an adequate review of systems is not obtainable at this time. Vital Signs Vital Signs Vital Signs: 08/03/22 17:22 08/03/22 17:27 Temperature 36.6 C Temperature Source Oral Pulse Rate 85 Respiratory Rate 16 Respiratory Effort Normal Non-Labored Respiratory Depth Normal Respiratory Pattern Normal Blood Pressure 159/95 H Blood Pressure Mean 116 Pulse Ox 100 Oxygen Delivery Method Room Air Room Air Weight Weight: 89.8 kg Body Mass Index (BMI) 36.2 Physical Exam Const alert and oriented x3 Constitutional Narrative: Tangential speech. Does not answer questions effectively. Is moaning in pain. Very anxious. Lying on her left side. HEENT normocephalic Resp normal respiratory effort, no retractions, no use of accessory muscles and clear to auscultation bilaterally Cardio regular rate, regular rhythm, S1 normal heart sound and S2 normal heart sound GI GI Narrative: Pain out of proportion to exam Back/Spine Thoracic Spine / Upper Back: paraspinal muscle tenderness Lumbar Spine / Lower Back: paraspinal muscle tenderness Psych Mood & Affect: anxious Results Lab / Micro Data Result Diagrams: 08/03/22 18:50 08/03/22 18:50 Labs: Laboratory Results - last 24 hr 08/03/22 18:50: WBC 9.6, RBC 4.28, Hgb 12.9, Hct 40.6, MCV 94.9, MCH 30.1, MCHC 31.8 L, RDW Std Deviation 49.4 H, RDW Coeff of Aubrey 14.4, Plt Count 202, MPV 10.2, Immature Gran % (Auto) 0.700, Neut % (Auto) 77.1 H, Lymph % (Auto) 11.9 L, [place] % (Auto) 7.6, Eos % (Auto) 2.3, Baso % (Auto) 0.4, Absolute Neuts (auto) 7.4, Absolute Lymphs (auto) 1.15, Nucleated RBC % 0 08/03/22 18:50: Sodium 141, Potassium 4.5, Chloride 106, Carbon Dioxide 30.0, Anion Gap 5, BUN 18, Creatinine 1.30 H, Estim Creat Clear Calc 33.21, Est GFR (MDRD) Af Amer 53 L, Est GFR (MDRD) Non-Af 43 L, BUN/Creatinine Ratio 13.8, Glucose 135 H, Calcium 9.[address] 08/03/22 17:34 IMPRESSION: There are no acute intracranial findings. Electronically Signed: Khris Caicedo MD at 18:22 EST , Cervical Spine CT 08/03/22 17:34 IMPRESSION: (NOT LISTED IN ORDER OF SIGNIFICANCE) Multilevel degenerative changes, as described above. Electronically Signed: Khris Caicedo MD at 18:23 EST , Chest X-Ray 08/03/22 18:00 IMPRESSION: There are no acute findings. Electronically Signed: Khris Caicedo MD at 18:40 EST , Femur X-Ray 08/03/22 18:00 IMPRESSION: Impacted left intertrochanteric fracture. Electronically Signed: Khris Caicedo MD at 18:41 EST , Femur X-Ray 08/03/22 18:00 IMPRESSION: Negative right femur x-rays. Electronically Signed: Khris Caicedo MD at 18:38 EST Reading Location ID and State: [facility] / [place] , Service support , Forearm X-Ray 08/03/22 18:00 IMPRESSION: Normal x-ray examination of the radius and ulna. Electronically Signed: Khris Caicedo MD at 18:37 EST , Humerus X-Ray 08/03/22 18:00 IMPRESSION: Negative left humerus x-rays. Electronically Signed: Khris Caicedo MD at 18:36 EST , Pelvis X-Ray 08/03/22 18:00 IMPRESSION: Left impacted intertrochanteric fracture. Electronically Signed: Khris Caicedo MD at 18:39 EST , Tibia/Fibula X-Ray 08/03/22 18:00 IMPRESSION: Negative left tibia and fibula x-rays. Electronically Signed: Khris Caicedo MD at 18:37 EST , Tibia/Fibula X-Ray 08/03/22 18:00 IMPRESSION: Negative right tibia and fibula x-rays. Electronically Signed: Khris Caicedo MD at 18:37 EST , Assessment & Plan Assessment/Plan (1) Closed intertrochanteric fracture of left femur: QUALIFIERS: Encounter type: initial encounter Fracture alignment: nondisplaced Qualified Code(s): S72.145A - Nondisplaced intertrochanteric fracture of left femur, initial encounter for closed fracture PLAN: Status post mechanical fall Pain control but caution as patient seems to have been made more confused by the morphine that she just received. Consult orthopedics. Dr. Chowdhury has been notified by the emergency room and tentative plan is for surgery on the since the patient took her apixaban today, if the patient is cleared. Check 25-hydroxy vitamin D Nonweightbearing left lower extremity (2) Anxiety: PLAN: Complicated by the hip fracture. Patient has diffuse pain throughout. Continue buspirone, duloxetine (3) Chest pain: QUALIFIERS: Chest pain type: unspecified Qualified Code(s): R07.9 - Chest pain, unspecified PLAN: Atypical Her history is not the most accurate at this time. Would recommend, with the patient is more calm and not inhibited by narcotics, to get better history regards to her chest pain. If there are concerning signs the patient should get a stress test or cardiology consultation, but if not then patient may be able to be cleared for surgery. At this point time, since her etiology and accuracy of her chest pain complaints, she is not cleared for surgery at this time Check an EKG Cycle troponins (4) Muscle strain: PLAN: Paraspinal muscles are tender. Likely from the jostling of her fall. Add cyclobenzaprine PLAN: Plan Chronic conditions A. fib: Apixaban held. Continue with metoprolol Diabetes mellitus type 2: Insulin-dependent. Continue with glargine, scheduled NovoLog and sliding scale insulin. When her surgery is to be performed, would hold her scheduled NovoLog Hypothyroidism: Continue levothyroxine VTE prophylaxis with SCDs Charges/Coding Visit Charges Inpatient E&M: 52859 Init Hosp L3
[2022-08-03 20:22] VITALS: BP 172/94; PULSE 78; RESP 18; TEMP 36.6; O2SAT 100
--- NOTE | 2022-08-03 20:24 | EKG12_ITS ---
Test Reason : PRE OP Blood Pressure : / mmHG Vent. Rate : 133 BPM Atrial Rate : 105 BPM P-R Int : 000 ms QRS Dur : 080 ms QT Int : 346 ms P-R-T Axes : 000 -14 187 degrees QTc Int : 514 ms Atrial fibrillation with premature ventricular or aberrantly conducted complexes Nonspecific ST and T wave abnormality Abnormal ECG Confirmed by EMILY ABRAHAM, NORA ([id number]), managing editor MAUREEN YAÑEZ ([id number]) on 08/07/2022 7:58:46 AM Referred By: ADRIEN Confirmed By:NORA DIAZ MD
[2022-08-03 21:07] VITALS: BMI 35.6
[2022-08-03 21:09] VITALS: BP 135/79; PULSE 71; RESP 18; TEMP 36.4; O2SAT 99
[2022-08-03 21:33] VITALS: BP 135/79; PULSE 71
[2022-08-03] MEDS: Metoprolol Tartrate 100 MG Tablet PO (21:33)
[2022-08-03] MEDS: busPIRone 5 MG Tablet 10 MG PO (21:33)
[2022-08-03] MEDS: Senna/Docusate Sodium 1 Tablet 2 TABLET PO (21:33)
[2022-08-03] MEDS: Acetaminophen 500 MG Tablet 1000 MG PO (21:33)
[2022-08-03] MEDS: Atorvastatin Calcium 40 MG Tablet PO (21:33)
[2022-08-03] MEDS: oxyCODONE 5 MG Tablet PO (21:40)
[2022-08-03 21:56] LABS: Bedside Glucose 72 mg/dL (74-106)
[2022-08-03 22:10] LABS: ALB/GLOB Ratio 0.8 RATIO (0.9-2.4); AST(SGOT) 14 U/L (15-37); Alanine Aminotransfer ALT/SGPT 12 U/L (13-56); Albumin, Serum 3.3 g/dL (3.2-5.0); Alkaline Phosphatase 77 U/L (45-117); Anion Gap 7 (5-15); BUN 18 mg/dL (7-18); BUN/Creat Ratio 14.9 RATIO (10-20); Calcium,Total 9.4 mg/dL (8.5-10.1); Chloride 106 mmol/L (98-107); Creatinine, Serum 1.21 mg/dL (0.55-1.02); EST Glomerular Filtration Rate 47 mL/min (>60); Est Glom Filt Rate - Afr Amer 57 mL/min (>60); Estimated Creatinine Clearance 35.68 ml/min; Globulin 4.4 g/dL (2.2-4.2); Glucose 109 mg/dL (74-106); Potassium 3.7 mmol/L (3.5-5.1); Protein, Total 7.7 g/dL (6.4-8.2); Sodium Level 142 mmol/L (136-145); Troponin-I HS 13 pg/mL (3.0-54.0)
--- NOTE | 2022-08-03 22:41 | PCM.HOSP.N ---
Hospitalist Note Troponin normal. EKG with atrial fibrillation, rate elevated however suspect secondary to pain, non specific ST-T wave changes.
[2022-08-04] VITALS (9 sets, daily range): BP systolic 96–112; BP diastolic 60–78; PULSE 63–97; RESP 16–18; TEMP 36.4–36.7; O2SAT 88–100
[2022-08-04] MEDS: 0.9% Saline Lock 10 ML Syringe IV (00:04)
[2022-08-04] MEDS: HYDROmorphone Inj 0.2 MG/ML SYRINGE IV (00:04)
[2022-08-04] MEDS: oxyCODONE 5 MG Tablet PO ×3 (03:08→21:21)
[2022-08-04 06:04] LABS: Absolute Lymphocyte Count 1.26 X10^3/uL (0.83-4.51); Absolute Neutrophil Count 6.3 X10^3/uL (2.0-7.7); Basophil# 0.03 X10^3/uL; Basophil% 0.3 % (0-1); Eosinophil# 0.17 X10^3/uL; Hematocrit 37.4 % (37-47); Lymphocyte # 1.26 X10^3/ul (0.83-4.51); Lymphocyte % 14.5 % (19-41); Mean Corp Hgb Conc 32.1 g/dL (32-36); Mean Corpuscular Hgb 30.9 pg (27.0-32.0); Mean Corpuscular Volume 96.4 fL (81-99); Mean Platelet Vol. 10.2 fl (6.2-12.0); Monocyte# 0.86 X10^3/uL; Monocyte% 9.9 % (0-10); NRBC Flagged by Analyzer 0 % (0-5); Neutrophil # 6.33 X10^3/uL (2.7-7.7); Platelet Count 193 K/mm3 (150-450); RBC Distribution Width CV 14.6 % (11.6-14.6); RBC Distribution Width SD 50.5 fl (35.1-43.9); Red Blood Count 3.88 M/mm3 (4.2-5.4); White Blood Count 8.7 K/mm3 (4.4-11.0)
[2022-08-04] MEDS: Acetaminophen 500 MG Tablet 1000 MG PO ×3 (06:21→21:30)
[2022-08-04] MEDS: busPIRone 15 MG TABLET PO (06:21)
[2022-08-04] MEDS: Levothyroxine 100 MCG Tablet PO (06:21)
[2022-08-04 06:52] LABS: Anion Gap 7 (5-15); BUN 22 mg/dL (7-18); BUN/Creat Ratio 15.8 RATIO (10-20); Calcium,Total 8.7 mg/dL (8.5-10.1); Chloride 104 mmol/L (98-107); Creatinine, Serum 1.39 mg/dL (0.55-1.02); EST Glomerular Filtration Rate 40 mL/min (>60); Est Glom Filt Rate - Afr Amer 49 mL/min (>60); Estimated Creatinine Clearance 31.06 ml/min; Glucose 131 mg/dL (74-106); Potassium 3.7 mmol/L (3.5-5.1); Sodium Level 141 mmol/L (136-145)
--- NOTE | 2022-08-04 08:35 | PCM.PN.HOSP ---
Subjective Subjective Doing well, no issues overnight. Pain is controlled Objective Data Objective Data Vital Signs: Vital Signs Temp Pulse Resp BP Pulse Ox O2 Del Method 97.6 F L 96 18 96/62 98 Room Air 08/04/22 03:00 08/04/22 03:00 08/04/22 03:00 08/04/22 03:00 08/04/22 03:00 08/04/22 03:00 Oxygen Delivery Method Room Air Weight: 194 lb 10.691 oz Body Mass Index (BMI) 35.6 Intake & Output: Intake and Output for Last 24 Hours 08/03/22 08/04/22 08/05/22 03:59 03:59 03:59 Output Total 350 / 350 150 / 150 Balance -350 / -350 -150 / -150 Lab / Micro Data Result Diagrams: 08/04/22 05:11 08/04/22 05:11 Labs: Laboratory Results - last 24 hr 08/03/22 18:50: WBC 9.6, RBC 4.28, Hgb 12.9, Hct 40.6, MCV 94.9, MCH 30.1, MCHC 31.8 L, RDW Std Deviation 49.4 H, RDW Coeff of Aubrey 14.4, Plt Count 202, MPV 10.2, Immature Gran % (Auto) 0.700, Neut % (Auto) 77.1 H, Lymph % (Auto) 11.9 L, [place] % (Auto) 7.6, Eos % (Auto) 2.3, Baso % (Auto) 0.4, Absolute Neuts (auto) 7.4, Absolute Lymphs (auto) 1.15, Nucleated RBC % 0 08/03/22 18:50: Sodium 141, Potassium 4.5, Chloride 106, Carbon Dioxide 30.0, Anion Gap 5, BUN 18, Creatinine 1.30 H, Estim Creat Clear Calc 33.21, Est GFR (MDRD) Af Amer 53 L, Est GFR (MDRD) Non-Af 43 L, BUN/Creatinine Ratio 13.8, Glucose 135 H, Calcium 9.6 08/03/22 21:20: Sodium 142, Potassium 3.7, Chloride 106, Carbon Dioxide 29.0, Anion Gap 7, BUN 18, Creatinine 1.21 H, Estim Creat Clear Calc 35.68, Est GFR (MDRD) Af Amer 57 L, Est GFR (MDRD) Non-Af 47 L, BUN/Creatinine Ratio 14.9, Glucose 109 H, Calcium 9.4, Total Bilirubin 1.40 H, AST 14 L, ALT 12 L, Alkaline Phosphatase 77, Troponin I High Sens 13, Total Protein 7.7, Albumin 3.3, Globulin 4.4 H, Albumin/Globulin Ratio 0.8 L 08/03/22 21:31: POC Glucose 72 L 08/04/22 05:11: WBC 8.7, RBC 3.88 L, Hgb 12.0, Hct 37.4, MCV 96.4, MCH 30.9, MCHC 32.1, RDW Std Deviation 50.5 H, RDW Coeff of Aubrey 14.6, Plt Count 193, MPV 10.2, Immature Gran % (Auto) 0.300, Neut % (Auto) 73.0 H, Lymph % (Auto) 14.5 L, [place] % (Auto) 9.9, Eos % (Auto) 2.0, Baso % (Auto) 0.3, Absolute Neuts (auto) 6.3, Absolute Lymphs (auto) 1.26, Nucleated RBC % 0 08/04/22 05:11: Sodium 141, Potassium 3.7, Chloride 104, Carbon Dioxide 30.0, Anion Gap 7, BUN 22 H, Creatinine 1.39 H, Estim Creat Clear Calc 31.06, Est GFR (MDRD) Af Amer 49 L, Est GFR (MDRD) Non-Af 40 L, BUN/Creatinine Ratio 15.8, Glucose 131 H, Calcium 8.7 Radiography Diagnostic Testing: Radiology Impression Brain CT 08/03/22 17:34 IMPRESSION: There are no acute intracranial findings. Electronically Signed: Khris Caicedo MD at 18:22 EST , Cervical Spine CT 08/03/22 17:34 IMPRESSION: (NOT LISTED IN ORDER OF SIGNIFICANCE) Multilevel degenerative changes, as described above. Electronically Signed: Khris Caicedo MD at 18:23 EST , Chest X-Ray 08/03/22 18:00 IMPRESSION: There are no acute findings. Electronically Signed: Khris Caiceod MD at 18:40 EST , Femur X-Ray 08/03/22 18:00 IMPRESSION: Impacted left intertrochanteric fracture. Electronically Signed: Khris Caicedo MD at 18:41 EST , Femur X-Ray 08/03/22 18:00 IMPRESSION: Negative right femur x-rays. Electronically Signed: Khris Caicedo MD at 18:38 EST , Forearm X-Ray 08/03/22 18:00 IMPRESSION: Normal x-ray examination of the radius and ulna. Electronically Signed: Khris Caicedo MD at 18:37 EST , Humerus X-Ray 08/03/22 18:00 IMPRESSION: Negative left humerus x-rays. Electronically Signed: Khris Caicedo MD at 18:36 EST , Pelvis X-Ray 08/03/22 18:00 IMPRESSION: Left impacted intertrochanteric fracture. Electronically Signed: Khris Caicedo MD at 18:39 EST , Tibia/Fibula X-Ray 08/03/22 18:00 IMPRESSION: Negative left tibia and fibula x-rays. Electronically Signed: Khris Caicedo MD at 18:37 EST Reading Location ID and State: [facility] / [place] , Service support , Tibia/Fibula X-Ray 08/03/22 18:00 IMPRESSION: Negative right tibia and fibula x-rays. Electronically Signed: Khris Caicedo MD at 18:37 EST Reading Location ID and State: [facility] / [place] , Service support , Physical Exam Narrative General: Alert, Oriented x3, resting comfortably HEENT: Atraumatic, PERRLA, EOMI, Normocephalic Oral: Moist Mucosa Neck: Supple, No JVD Lungs: Clear to auscultation, Normal air movement, No rhonchi, No wheeze, No rales Cardiovascular: Regular rate, Regular Rhythm, Normal S1, Normal S2, No murmurs Abdomen: Soft, Non Tender, Non-Distended, No Hepato-splenomegaly Extremities: No edema, Capillary Refill Less than 3 Seconds Skin: No rashes, No breakdown Musculoskeletal: No Tenderness to Palpation of Joints or Extremities Neurological: Cranial nerves II-XII grossly intact, Motor Exam 5/5 strength throughout, Sensory exam intact to light touch and pain Psych/Mental Status: Flat affect, Appropriate Assessment & Plan Assessment/Plan (1) Closed intertrochanteric fracture of left femur: QUALIFIERS: Encounter type: initial encounter Fracture alignment: nondisplaced Qualified Code(s): S72.145A - Nondisplaced intertrochanteric fracture of left femur, initial encounter for closed fracture PLAN: CoughStatus post mechanical fall She did have some confusion with the morphine yesterday, so we will be sure is with its use Appreciate orthopedics assistance, plan for OR on as she had taken her Eliquis on the day of admission 25-hydroxy vitamin D is pending (2) Anxiety: PLAN: Complicated by the hip fracture. Patient has diffuse pain throughout. Continue buspirone, duloxetine (3) Chest pain: QUALIFIERS: Chest pain type: unspecified Qualified Code(s): R07.9 - Chest pain, unspecified PLAN: No current chest pain, troponins were unremarkable and EKG was nonischemic Check an EKG Cycle troponins (4) Muscle strain: PLAN: Paraspinal muscles are tender. Likely from the jostling of her fall. Add cyclobenzaprine PLAN: Plan Chronic conditions A. fib: Apixaban held. Continue with metoprolol Diabetes mellitus type 2: Insulin-dependent. Continue with glargine, scheduled NovoLog and sliding scale insulin. When her surgery is to be performed Hypothyroidism: Continue levothyroxine DVT: SCDs Charges/Coding Visit Charges Inpatient E&M: 71285 Subs Hosp L2
--- NOTE | 2022-08-04 09:05 | CONS.ORTHO ---
HPI Consult Data Date of Consult: 08/04/22 HPI Narrative Reason for Consultation: Left hip pain HPI Narrative: RUI PANDA, is a 67 F with history of coronary artery disease, atrial fibrillation diabetes and chronic respiratory insufficiency as well as COPD who is on 3 L of oxygen at home normally who presents with left hip pain. Patient reports mechanical fall yesterday in her home. She is got a great historian. But she is able to communicate that she uses oxygen at home as well as a cane. She reports mechanical fall not able to tell me how she fell. She was then brought to the emergency department where she was found to have an intertrochanteric hip fracture. She reports of generalized pain overall and numerous x-rays were performed. She is on Eliquis and her last dose was yesterday morning. Patient is unable to greater pain on 1 out of 10 however she reports it severe this morning. Is worse with motion better with immobilization located primarily in the left hip region. She does have a history of previous VTE including pulmonary embolus. [facility] Medical History Atherosclerotic heart disease of [place] coronary artery without angina pectoris Broken rib Chronic respiratory insufficiency COPD (chronic obstructive pulmonary disease) DDD (degenerative disc disease) Diabetes mellitus type 2 in obese Essential hypertension Gastroparesis GERD (gastroesophageal reflux disease) History of cervical cancer History of DVT (deep vein thrombosis) Hypothyroidism Lung nodule Mixed hyperlipidemia PARESH (obstructive sleep apnea) Paroxysmal A-fib Presence of stent in coronary artery (~12/07/03) Pulmonary embolism Pulmonary hypertension RLS (restless legs syndrome) Home Medications atorvastatin 40 mg tablet 40 mg PO QHS CHOLESTEROL LOWERING 02/03/18 [History Last Taken 12/12/20] levothyroxine 100 mcg tablet 100 mcg PO DAILY THYROID 02/03/18 [History Last Taken 12/13/20] apixaban 2.5 mg tablet 2.5 mg PO BID Blood thinner 05/17/18 [History Last Taken 12/13/20] ascorbic acid (vitamin C) 500 mg tablet 500 mg PO DAILY@1700 supplement 05/17/18 [History Last Taken 12/12/20] aspirin 81 mg tablet,delayed release 81 mg PO DAILY@1700 Heart 09/02/18 [History Last Taken 12/12/20] potassium chloride 10 mEq tablet,extended release 10 meq PO DAILY supplement 06/08/19 [History Last Taken 12/13/20] allopurinol 100 mg tablet 100 mg PO DAILY gout 08/11/19 [History Last Taken 12/13/20] furosemide 20 mg tablet 20 mg PO BID FLUID 10/25/20 [History Last Taken 12/13/20] omeprazole 40 mg capsule,delayed release 40 mg PO DAILY GERD 10/25/20 [History Last Taken 12/13/20] cholecalciferol (vitamin D3) 50 mcg (2,000 unit) capsule 2,000 unit PO DAILY SUPPLEMENT 12/13/20 [History Last Taken 12/12/20] nitroglycerin 0.4 mg sublingual tablet 0.4 mg sublingual Q5-15M PRN chest pain #25 tabs 06/05/21 [Rx Last Taken Unknown] isosorbide mononitrate 120 mg tablet,extended release 24 hr 120 mg PO DAILY #90 tabs 09/17/21 [Rx Last Taken Unknown] metoprolol tartrate 100 mg tablet 100 mg PO BID Heart Rate #30 tabs 01/25/22 [Rx Last Taken Unknown] buspirone 10 mg tablet 10 mg PO TID depression 06/12/22 [History Last Taken Unknown] docusate sodium 100 mg capsule 100 mg PO QHS PRN constipation 06/12/22 [History Last Taken Unknown] duloxetine 60 mg capsule,delayed release 60 mg PO DAILY MENTAL HEALTH 06/12/22 [History Last Taken Unknown] fexofenadine 180 mg tablet 180 mg PO DAILY 06/12/22 [History Last Taken Unknown] insulin glargine 100 unit/mL (3 mL) subcutaneous pen 42 unit subcut BID DM 06/12/22 [History Last Taken Unknown] insulin lispro 100 unit/mL subcutaneous pen 16 unit subcut BREAKFAST 06/12/22 [History Last Taken Unknown] insulin lispro 100 unit/mL subcutaneous pen 24 unit subcut LUNCH 06/12/22 [History Last Taken Unknown] insulin lispro 100 unit/mL subcutaneous pen 26 unit subcut DINNER 06/12/22 [History Last Taken Unknown] sodium chloride 0.65 % nasal spray aerosol (Saline Mist) 2 spray intranasal DAILY 06/12/22 [History Last Taken Unknown] Allergy/AdvReac Type Severity Reaction Status Date / Time ciprofloxacin [From Cipro] Allergy Hives Verified 06/12/22 13:42 latex Allergy matos me Verified 06/12/22 13:42 niacin Allergy Hives Verified 06/12/22 13:42 [From Niaspan Extended-Release] ondansetron [From Zofran] Allergy Unknown Verified 06/12/22 13:42 ranolazine [From Ranexa] Allergy Itching Verified 06/12/22 13:42 Xanthines Allergy Unknown Verified 06/12/22 13:42 adhesive tape AdvReac Other Verified 06/12/22 13:42 orphenadrine citrate AdvReac groggy Verified 06/12/22 13:42 [From Norgesic] Family History Mother CAD (coronary artery disease) Father CAD (coronary artery disease) Brother CAD (coronary artery disease) Asthma Sister Hypertension Sister Diabetes Sister Heart disease Surgical History History of cholecystectomy History of hernia repair History of knee surgery History of left heart catheterization (LHC) (~09/28/19) History of nasal surgery History of surgery on wrist History of total abdominal hysterectomy History of tubal ligation Presence of coronary angioplasty implant and graft (~12/07/03) Social History Smoking Status: Former smoker alcohol intake: never substance use type: does not use caffeine: Yes Type: coffee Number of servings: 1 ROS Constitutional Constitutional: Reports systems reviewed and no addt'l complaints, except as documented Eyes Eyes: Reports systems reviewed and no addt'l complaints, except as documented ENT HEENT: Reports systems reviewed and no addt'l complaints, except as documented Cardiovascular Cardiovascular: Reports systems reviewed and no addt'l complaints, except as documented Respiratory/Chest Respiratory/Chest: Reports systems reviewed and no addt'l complaints, except as documented Gastrointestinal Gastrointestinal: Reports systems reviewed and no addt'l complaints, except as documented Genitourinary Genitourinary: Reports systems reviewed and no addt'l complaints, except as documented Musculoskeletal Musculoskeletal: Reports systems reviewed and no addt'l complaints, except as documented Integumentary Integumentary: Reports systems reviewed and no addt'l complaints, except as documented Neurologic Neurologic: Reports systems reviewed and no addt'l complaints, except as documented Psychiatric Psychiatric: Reports systems reviewed and no addt'l complaints, except as documented Hematologic/Lymphatic Hematologic/Lymphatic: Reports systems reviewed and no addt'l complaints, except as documented Vital Signs Vital Signs Vital Signs: 08/03/22 17:22 08/03/22 17:27 08/03/22 20:22 Temperature 97.8 F 97.9 F Temperature Source Oral Oral Pulse Rate 85 78 Pulse Strength Respiratory Rate 16 18 Respiratory Effort Normal Non-Labored Respiratory Depth Normal Respiratory Pattern Normal Blood Pressure 159/95 H 172/94 H Blood Pressure Mean 116 120 Blood Pressure Source Blood Pressure Position Blood Pressure Location Pulse Ox 100 100 Oxygen Delivery Method Room Air Room Air Room Air 08/03/22 21:09 08/03/22 21:33 08/03/22 21:05 Temperature 97.5 F L Temperature Source Oral Pulse Rate 71 71 Pulse Strength Respiratory Rate 18 Respiratory Effort Normal Non-Labored Respiratory Depth Normal Respiratory Pattern Normal Blood Pressure 135/79 H 135/79 H Blood Pressure Mean 97 Blood Pressure Source Monitor Blood Pressure Position Right Lateral Blood Pressure Location Left Arm Pulse Ox 99 Oxygen Delivery Method Room Air Room Air 08/03/22 22:00 08/04/22 03:00 Temperature 97.6 F L Temperature Source Temporal Pulse Rate 96 Pulse Strength Normal (2+) Respiratory Rate 18 Respiratory Effort Respiratory Depth Respiratory Pattern Blood Pressure 96/62 Blood Pressure Mean 73 Blood Pressure Source Monitor Blood Pressure Position Semi-Fowlers Blood Pressure Location Left Arm Pulse Ox 98 Oxygen Delivery Method Room Air Weight Weight: 194 lb 10.691 oz Body Mass Index (BMI) 35.6 Physical Exam Const alert General Appearance: cooperative HEENT normocephalic Eyes PERRL Neck No no JVD Resp normal respiratory effort Resp Narrative: Not on oxygen currently Cardio Cardio Narrative: Regular pulse rate GI non-distended Extremity Extremity Narrative: Left lower extremity: Dressing is clean dry and intact Sensations intact to light touch saphenous, sural, superficial peroneal, deep peroneal, and tibial distributions Motors intact EHL, DF, PF calves are soft and supple Skin no wounds Skin Narrative: On left hip Psych Attitude: agitated Medical Records Data Attestation: I reviewed the patient's medical records Lab / Micro Data Result Diagrams: 08/04/22 05:11 08/04/22 05:11 Labs: Laboratory Results - last 24 hr 08/03/22 18:50: WBC 9.6, RBC 4.28, Hgb 12.9, Hct 40.6, MCV 94.9, MCH 30.1, MCHC 31.8 L, RDW Std Deviation 49.4 H, RDW Coeff of Aubrey 14.4, Plt Count 202, MPV 10.2, Immature Gran % (Auto) 0.700, Neut % (Auto) 77.1 H, Lymph % (Auto) 11.9 L, [place] % (Auto) 7.6, Eos % (Auto) 2.3, Baso % (Auto) 0.4, Absolute Neuts (auto) 7.4, Absolute Lymphs (auto) 1.15, Nucleated RBC % 0 08/03/22 18:50: Sodium 141, Potassium 4.5, Chloride 106, Carbon Dioxide 30.0, Anion Gap 5, BUN 18, Creatinine 1.30 H, Estim Creat Clear Calc 33.21, Est GFR (MDRD) Af Amer 53 L, Est GFR (MDRD) Non-Af 43 L, BUN/Creatinine Ratio 13.8, Glucose 135 H, Calcium 9.6 08/03/22 21:20: Sodium 142, Potassium 3.7, Chloride 106, Carbon Dioxide 29.0, Anion Gap 7, BUN 18, Creatinine 1.21 H, Estim Creat Clear Calc 35.68, Est GFR (MDRD) Af Amer 57 L, Est GFR (MDRD) Non-Af 47 L, BUN/Creatinine Ratio 14.9, Glucose 109 H, Calcium 9.4, Total Bilirubin 1.40 H, AST 14 L, ALT 12 L, Alkaline Phosphatase 77, Troponin I High Sens 13, Total Protein 7.7, Albumin 3.3, Globulin 4.4 H, Albumin/Globulin Ratio 0.8 L 08/03/22 21:31: POC Glucose 72 L 08/04/22 05:11: WBC 8.7, RBC 3.88 L, Hgb 12.0, Hct 37.4, MCV 96.4, MCH 30.9, MCHC 32.1, RDW Std Deviation 50.5 H, RDW Coeff of Aubrey 14.6, Plt Count 193, MPV 10.2, Immature Gran % (Auto) 0.300, Neut % (Auto) 73.0 H, Lymph % (Auto) 14.5 L, [place] % (Auto) 9.9, Eos % (Auto) 2.0, Baso % (Auto) 0.3, Absolute Neuts (auto) 6.3, Absolute Lymphs (auto) 1.26, Nucleated RBC % 0 08/04/22 05:11: Sodium 141, Potassium 3.7, Chloride 104, Carbon Dioxide 30.0, Anion Gap 7, BUN 22 H, Creatinine 1.39 H, Estim Creat Clear Calc 31.06, Est GFR (MDRD) Af Amer 49 L, Est GFR (MDRD) Non-Af 40 L, BUN/Creatinine Ratio 15.8, Glucose 131 H, Calcium 8.[address] 08/03/22 17:34 IMPRESSION: There are no acute intracranial findings. Electronically Signed: Khris Caicedo MD at 18:22 EST , Cervical Spine CT 08/03/22 17:34 IMPRESSION: (NOT LISTED IN ORDER OF SIGNIFICANCE) Multilevel degenerative changes, as described above. Electronically Signed: Khris Caicedo MD at 18:23 EST , Chest X-Ray 08/03/22 18:00 IMPRESSION: There are no acute findings. Electronically Signed: Khris Caicedo MD at 18:40 EST , Femur X-Ray 08/03/22 18:00 IMPRESSION: Impacted left intertrochanteric fracture. Electronically Signed: Khris Caicedo MD at 18:41 EST , Femur X-Ray 08/03/22 18:00 IMPRESSION: Negative right femur x-rays. Electronically Signed: Khris Caicedo MD at 18:38 EST Reading Location ID and State: [facility] [place] / [place] , Service support , Forearm X-Ray 08/03/22 18:00 IMPRESSION: Normal x-ray examination of the radius and ulna. Electronically Signed: Khris Caicedo MD at 18:37 EST Reading Location ID and State: [facility] [place] / [place] , Service support , Humerus X-Ray 08/03/22 18:00 IMPRESSION: Negative left humerus x-rays. Electronically Signed: Khris Caicedo MD at 18:36 EST Reading Location ID and State: [facility] [place] / [place] , Service support , Pelvis X-Ray 08/03/22 18:00 IMPRESSION: Left impacted intertrochanteric fracture. Electronically Signed: Khris Caicedo MD at 18:39 EST Reading Location ID and State: [facility] [place] / [place] , Service support , Tibia/Fibula X-Ray 08/03/22 18:00 IMPRESSION: Negative left tibia and fibula x-rays. Electronically Signed: Khris Caicedo MD at 18:37 EST Reading Location ID and State: [facility] / [place] , Service support , Tibia/Fibula X-Ray 08/03/22 18:00 IMPRESSION: Negative right tibia and fibula x-rays. Electronically Signed: Khris Caicedo MD at 18:37 EST Reading Location ID and State: [facility] / [place] , Service support , Assessment & Plan Assessment/Plan (1) Closed intertrochanteric fracture of left femur: QUALIFIERS: Encounter type: initial encounter Fracture alignment: nondisplaced Qualified Code(s): S72.145A - Nondisplaced intertrochanteric fracture of left femur, initial encounter for closed fracture PLAN: 67-year-old female with mechanical fall. Sustained a left intertrochanteric hip fracture. Patient has osteopenic appearing bone on radiographs. Due to COPD history of previous use of corticosteroids. Natural history of the disease process and treatment options were discussed the patient. Patient was given ample time to ask questions and all questions were answered appropriately. Nonoperative treatment as well as cephalomedullary nail were discussed. I recommended cephalomedullary nail as appropriate treatment course for this patient. Unfortunately, due to her use of Eliquis and is recommended to wait 48 hours prior to major surgery. Risk and benefits of the surgery were discussed the patient including but not limited to blood loss, DVTs, PEs, nervous damage, infection, and risk of anesthesia including loss of life and we also discussed nonunion, malunion as well as hardware failure and screw cut out. At this time I plan is to make patient n.p.o. after midnight. Plan on surgery tomorrow. Antibiotics were ordered on-call to the operating room. Patient was adequately consented to this morning. [facility] Office: (2) Coagulopathy: (3) Presence of stent in coronary artery: (4) Atherosclerotic heart disease of [place] coronary artery without angina pectoris: QUALIFIERS: [place] vs. transplanted heart: [place] heart Qualified Code(s): I25.10 - Atherosclerotic heart disease of [place] coronary artery without angina pectoris (5) Paroxysmal A-fib: (6) Diabetes mellitus type 2 in obese: (7) COPD (chronic obstructive pulmonary disease): QUALIFIERS: COPD type: unspecified COPD Qualified Code(s): J44.9 - Chronic obstructive pulmonary disease, unspecified (8) Chronic respiratory insufficiency: (9) APRESH (obstructive sleep apnea):
[2022-08-04 10:06] LABS: Bedside Glucose 121 mg/dL (74-106)
[2022-08-04] MEDS: Allopurinol 100 MG Tablet PO (10:22)
[2022-08-04] MEDS: Insulin Lispro 100 UNIT/ML INSULN.PEN 16 UNIT SC (10:25)
[2022-08-04] MEDS: Senna/Docusate Sodium 1 Tablet 2 TABLET PO ×2 (10:26→21:29)
[2022-08-04] MEDS: Cholecalciferol (VIT D3) 25 MCG TABLET (1,000 UNITS) 50 MCG PO (10:26)
[2022-08-04] MEDS: Pantoprazole Sodium 40 MG Tablet PO (10:27)
[2022-08-04] MEDS: Insulin Glargine-YFGN 100 UNIT/ML Pen 42 UNIT SC (10:27)
[2022-08-04] MEDS: Loratadine 10 MG Tablet PO (10:28)
[2022-08-04] MEDS: DULoxetine Hcl 60 MG Capsule PO (10:28)
[2022-08-04] MEDS: Metoprolol Tartrate 100 MG Tablet PO ×2 (10:29→21:30)
[2022-08-04] MEDS: Sodium Chloride 0.65% 1 SPRAY SPRAY.BTL 2 SPRAY NASAL (10:34)
[2022-08-04] MEDS: Insulin Lispro 100 UNIT/ML INSULN.PEN 24 UNIT SC (12:41)
[2022-08-04] MEDS: Insulin Lispro 100 UNIT/ML INSULN.PEN SC (12:42)
[2022-08-04] MEDS: busPIRone 5 MG Tablet 10 MG PO ×2 (12:44→21:29)
[2022-08-04 16:55] LABS: Bedside Glucose 156 mg/dL (74-106)
[2022-08-04 16:55] LABS: Bedside Glucose 123 mg/dL (74-106)
[2022-08-04] MEDS: Insulin Lispro 100 UNIT/ML INSULN.PEN 26 UNIT SC (18:05)
[2022-08-04] MEDS: Ascorbic Acid 500 MG Tablet PO (18:06)
[2022-08-04] MEDS: Atorvastatin Calcium 40 MG Tablet PO (21:30)
[2022-08-04 22:10] LABS: Bedside Glucose 97 mg/dL (74-106)
[2022-08-05] VITALS (13 sets, daily range): BP systolic 92–146; BP diastolic 49–99; PULSE 69–122; RESP 16–20; TEMP 36.3–37.1; O2SAT 93–100; BMI 35.6
[2022-08-05] MEDS: 0.9% Normal Saline 1,000 ML 75 ML IV ×3 (00:36→20:49)
[2022-08-05] MEDS: 0.9% Saline Lock 10 ML Syringe IV ×3 (00:40→10:56)
[2022-08-05] MEDS: HYDROmorphone Inj 0.2 MG/ML SYRINGE IV ×3 (04:46→17:50)
[2022-08-05 05:52] LABS: Absolute Lymphocyte Count 1.11 X10^3/uL (0.83-4.51); Absolute Neutrophil Count 7.8 X10^3/uL (2.0-7.7); Basophil# 0.03 X10^3/uL; Basophil% 0.3 % (0-1); Eosinophil# 0.45 X10^3/uL; Eosinophils% 4.2 % (0-5); Hematocrit 39.5 % (37-47); Hemoglobin 11.8 g/dL (12.0-15.0); Lymphocyte # 1.11 X10^3/ul (0.83-4.51); Lymphocyte % 10.5 % (19-41); Mean Corp Hgb Conc 29.9 g/dL (32-36); Mean Corpuscular Hgb 30.3 pg (27.0-32.0); Mean Corpuscular Volume 101.3 fL (81-99); Mean Platelet Vol. 10.2 fl (6.2-12.0); Monocyte% 11.3 % (0-10); NRBC Flagged by Analyzer 0 % (0-5); Neutrophil # 7.75 X10^3/uL (2.7-7.7); Neutrophil % 73.1 % (47-70); Platelet Count 165 K/mm3 (150-450); RBC Distribution Width CV 14.6 % (11.6-14.6); RBC Distribution Width SD 53.5 fl (35.1-43.9); White Blood Count 10.6 K/mm3 (4.4-11.0)
[2022-08-05 06:12] LABS: Anion Gap 7 (5-15); BUN 31 mg/dL (7-18); BUN/Creat Ratio 18.5 RATIO (10-20); Calcium,Total 8.3 mg/dL (8.5-10.1); Chloride 108 mmol/L (98-107); Creatinine, Serum 1.68 mg/dL (0.55-1.02); EST Glomerular Filtration Rate 32 mL/min (>60); Est Glom Filt Rate - Afr Amer 39 mL/min (>60); Glucose 76 mg/dL (74-106); Potassium 3.7 mmol/L (3.5-5.1); Sodium Level 142 mmol/L (136-145)
[2022-08-05 07:52] LABS: Hemoglobin A1c 7.3 % (3.8-5.6)
[2022-08-05 09:10] LABS: Bedside Glucose 101 mg/dL (74-106)
[2022-08-05 09:37] LABS: Vitamin D,25 Hydroxy 57.2 ng/mL
[2022-08-05] MEDS: Lactated Ringers 1,000 ML 15 ML IV (10:00)
--- NOTE | 2022-08-05 11:15 | CASEMGMT ---
RN JOSEFINA Face to Face with patient for initial transition planning/care coordination assessment. RN CM introduced self and role at [facility]. Patient lying in bed, alert and oriented. Patient willing to participate in assessment and is able to answer all questions appropriately. Care providers, pharmacy, and demographics verified. Patient wishes to discharge home, surgery pending. Will monitor progress with therapy for discharge recommendations. Patient states she has no further needs or concerns at this time. CM to follow for discharge planning needs that may arise. PCP: Roxanne Specialists: Wan adult basic studies teacher Preferred Pharmacy: [facility] Insurance: [employer] [facility] Prescription Benefit: yes Living Will/HPOA: none LNOK: 2 daughters, 2 sons Living Arrangements: Patient states she lives with her 2 sons in a first floor apartment with 1 step to enter. Patient states she is independent for self care, has aide that assists with bathing. Transportation: son DME/C: patient states she has shower chair, raised toilet, lift chair, grab bars, walker, and home oxygen with portability at 3lpm through [employer]. Patient states she has previously been to [facility]. Patient has waiver program and her case finisher is [employer]. Disposition Plan: TBD by course of treatment and progress with therapy, anticipate patient will need SNF at discharge. Joyce PACHECO, RN, CM
[2022-08-05] MEDS: Pantoprazole Sodium 40 MG Tablet PO (11:54)
[2022-08-05] MEDS: DULoxetine Hcl 60 MG Capsule PO (11:55)
--- NOTE | 2022-08-05 12:01 | CASEMGMT ---
Social Work SW informed by RN JOSEFINA Chaudhry that pt has passport/waiver services through [employer]. CM is [employer] Arizmendi ([phone]) SW called [employer] to update that pt is admitted to [facility]. Left message. SRINATH Topete
[2022-08-05 12:55] LABS: Bedside Glucose 113 mg/dL (74-106)
--- NOTE | 2022-08-05 13:51 | PN.HOSP_ITS ---
Objective Data Objective Data Vital Signs: Vital Signs Temp Pulse Resp BP Pulse Ox O2 Del Method O2 Flow Rate 97.8 F 95 18 110/64 98 Nasal Cannula 2 08/05/22 10:00 08/05/22 10:00 08/05/22 10:00 08/05/22 10:00 08/05/22 10:00 08/05/22 10:00 08/05/22 10:00 Oxygen Flow Rate (L/min) 2 Oxygen Delivery Method Nasal Cannula Weight: 88.3 kg Body Mass Index (BMI) 35.6 Intake & Output: Intake and Output for Last 24 Hours 08/03/22 08/04/22 08/05/22 23:59 23:59 23:59 Intake Total 200 / 200 Output Total 750 / 900 350 / 350 Balance -750 / -700 -150 / -150 Lab / Micro Data Result Diagrams: 08/05/22 05:23 08/05/22 05:23 Labs: Laboratory Results - last 24 hr 08/03/22 21:20: Vitamin D 25-Hydroxy 57.2 08/04/22 11:21: POC Glucose 156 H 08/04/22 16:38: POC Glucose 123 H 08/04/22 21:26: POC Glucose 97 08/05/22 05:23: WBC 10.6, RBC 3.90 L, Hgb 11.8 L, Hct 39.5, MCV 101.3 H D, MCH 30.3, MCHC 29.9 L D, RDW Std Deviation 53.5 H, RDW Coeff of Aubrey 14.6, Plt Count 165, MPV 10.2, Immature Gran % (Auto) 0.600, Neut % (Auto) 73.1 H, Lymph % (Auto) 10.5 L, [place] % (Auto) 11.3 H, Eos % (Auto) 4.2, Baso % (Auto) 0.3, Absolute Neuts (auto) 7.8 H, Absolute Lymphs (auto) 1.11, Nucleated RBC % 0 08/05/22 05:23: Sodium 142, Potassium 3.7, Chloride 108 H, Carbon Dioxide 27.0, Anion Gap 7, BUN 31 H, Creatinine 1.68 H, Estim Creat Clear Calc 25.70, Est GFR (MDRD) Af Amer 39 L, Est GFR (MDRD) Non-Af 32 L, BUN/Creatinine Ratio 18.5, Glucose 76, Calcium 8.3 L 08/05/22 05:23: Blood Type A POSITIVE, Antibody Screen NEGATIVE, Crossmatch See Detail 08/05/22 05:23: TSH 2.10 08/05/22 05:23: Hemoglobin A1c 7.3 H 08/05/22 07:56: POC Glucose 101 08/05/22 12:23: POC Glucose 113 H Assessment & Plan Assessment/Plan (1) Closed intertrochanteric fracture of left femur: QUALIFIERS: Encounter type: initial encounter Fracture alignment: nondisplaced Qualified Code(s): S72.145A - Nondisplaced intertrochanteric fracture of left femur, initial encounter for closed fracture (2) Fall at home: (3) Coagulopathy: (4) Elevated serum creatinine: PLAN: Plan Closed intertrochanteric fracture of the left femur status post mechanical fall -Plan is for OR later today -Continue to hold Eliquis until notified by orthopedic surgery that it may be restarted -PT/OT consultation after surgery -Bowel regimen -Continue medication for pain control -Vitamin D level pending -Patient is currently on 2000 units daily however if levels less than 30 will increase to ergocalciferol 50,000 units weekly x6 weeks -will likely need placement at discharge depending on how patient does with therapy services Serum creatinine elevation on CKD stage III -Does not meet criteria for TITI however serum creatinine is elevated above baseline -Baseline serum creatinine appears to be between 1.1 and 1.4 -Current serum creatinine is 1.68 -Currently on IV fluids as patient is n.p.o. -Repeat BMP in a.m. -Avoid nephrotoxins as able Atrial fibrillation -EKG demonstrates chronic A. fib -Apixaban on hold -Continue home metoprolol and restart apixaban when appropriate per orthopedic surgery recommendations DM-2 -Continue home glargine -Continue home NovoLog--> currently on hold as patient is n.p.o. awaiting surgery -Continue sliding scale -Accu-Cheks as ordered Hypothyroidism -Continue home levothyroxine History of CAD -Continue aspirin -Continue home risk factor modifications Hyperlipidemia -Continue home atorvastatin Allergies -Continue home in Hypertension -Continue home metoprolol -Continue home isosorbide mononitrate -Hold home Lasix and reinitiate once appropriate after surgery Gout -Continue home allopurinol GERD -Continue home PPI DVT prophylaxis -Patient is fully anticoagulated at baseline -Eliquis on hold for surgery -Restart when okay with orthopedic surgery -SCDs CODE STATUS -full code Charges/Coding Visit Charges Inpatient E&M: 48935 Subs Hosp L2
--- NOTE | 2022-08-05 15:36 | CASEMGMT ---
TC to [facility] to verify oxygen orders, they state they don't provide oxygen to pt.
[2022-08-05 16:55] LABS: Bedside Glucose 114 mg/dL (74-106)
--- NOTE | 2022-08-05 17:20 | NURSING ---
Pt left the floor for surgery.
--- NOTE | 2022-08-05 18:25 | RAD_ITS ---
INDICATION: HIP NAIL EXAMINATION/TECHNIQUE: X-RAY - LEFT XR Hip Unilateral with Pelvis when performed; 2-3 Views 5 VIEWS COMPARISON: None. FINDINGS: 4 images obtained intraoperatively. Intramedullary kaylan and compression screws are present. RAD/Hip Min 2 Views (Portable) IMPRESSION: Intraoperative imaging for hardware localization. Electronically Signed: Fernanda Carrillo MD at 23:43 EST Reading Location ID and State: [id number] / Tel , Service support ,
--- NOTE | 2022-08-05 18:28 | OP.PCM_ITS ---
Report of Operation Date of Procedure: 08/05/22 Pre-Operative Diagnosis: Left hip intertrochanteric fracture Post-Operative Diagnosis: Left hip intertrochanteric fracture Surgery/Procedure Performed:: Left hip cephalomedullary nail Description of Surgical Findings:: Stable reduction Surgeon: Vahid Chowdhury residential door installer: Kimi Negrete Type of Anesthesia: General Anesthesiologist: Garth Stuart Special Medications: Ancef Estimated Blood Loss (mL): 300 Fluids Replaced: 900 mL crystalloid Description of Procedure: Components used: 1. Cunningham [employer] Nephew InterTAN nail 36 cm x 13 mm, 125 degree neck angle 2. Cunningham [employer] Nephew InterTAN lag screw 90mm 3. Cunningham [employer] Nephew 42.5 millimeter interlocking screw Brief history operative indications: 67-year-old female with multiple medical comorbidities sustained a fall with intertrochanteric hip fracture, after extensive discussion including risk and benefits which include but are not limited to blood loss, PEs, DVTs, neurovascular damage, nonunions, malunions and screw cut out patient has elected to proceed with a left cephalo-medullary nail. Procedure: On the date of the procedure the patient's left hip was marked in the preoperative area and patient was taken back to the operating room. Anesthetic was administered and patient was transferred to the table were all bony prominence identified well-padded and the ipsilateral arm was placed across the chest. Patient was then translated down to the perineal post and the operative leg was placed in the boot while the nonoperative leg was lowered and secured. The operative leg was placed in traction and internal rotation and live fluoroscopy was used to verify adequate reduction. The operative leg was then prepped in a sterile fashion with chlorhexidine while the surgeon scrubbed. Upon reentering the room the operative extremity was draped in the standard orthopedic fashion. Skin incision was marked and a timeout was called. Everyone agreed upon the side, the site, the procedure be performed, patient's identity, and antibiotics given. Skin incision was made and the position of the entry guidepin was verified using live fluoroscopy. Once we were satisfied with our position the pin was advanced in the soft tissue protector was placed over the pin. The entry reamer was then advanced into the proximal portion of the femur. A guidewire was placed down the intramedullary canal and fluoroscopy was used to verify that the anterior cortex had not been breached distally as well as satisfactory distal positioning. We then used live fluoroscopy to verify the length of the nail and a Cunningham [employer] Nephew InterTAN 36 cm by 13 mm 125 degree neck angle hip nail was selected. The 11 mm reamer was then passed. The nail was then attached to the 2nd grade teacher and inserted into the intramedullary canal. The appropriate depth was verified and the skin incision for the lag screw was made. The lag screw guidepin was then placed under live fluoroscopy and when a satisfactory position was obtained the length of the screw was measured and the standard technique to drill for the lag screws was performed. The anti-rotation bar was used. At this time a 90 mm lag screw was selected with its corresponding compression screw. The lag screw was then passed and traction was left off the leg. The compression screw was then passed and the fracture was compressed. The final position of the lag screw was verified under fluoroscopy. Attention was then turned to the distal portion of the nail and a perfect [place] technique was used to locate the distal interlocking screw and a 42.5 mm distal interlocking screw was placed using this technique. Live fluoroscopy was used to verify the position of the interlocking screw and the final position of the hip components. Once we were satisfied with our positioning the wounds were copiously irrigated out with normal saline skin was closed with 2-0 Vicryl and janel for final skin closure. A sterile dressing was placed with Xeroform. Patient was then awakened by anesthesia transferred from the fracture table back to their hospital bed and transferred to the PACU for recovery. Postoperative plan: Patient will be weight-bear as tolerated. Patient will resume Eliquis tomorrow for DVT prophylaxis with knee-high stockings. Follow up in the office in 2 weeks. Grafts/Implants Used: Cunningham [employer] Nephew InterTAN Complications No intraoperative complications Admit VTE Documentation VTE Present on Admission: No VTE Mechan Device Prophylaxis: SCD's and Thigh High KELLIE Hose VTE Pharm Prophylaxis ordered?: Yes
[2022-08-05] MEDS: Cefazolin 2 GM in 0.9% Normal Saline 100 ML IV (18:33)
[2022-08-05 20:35] LABS: Bedside Glucose 140 mg/dL (74-106)
--- NOTE | 2022-08-05 22:19 | RAD_ITS ---
STUDY: X-RAY - PELVIS AND LEFT HIP REASON FOR EXAM: Female, 67 years old. Post Op -- TECHNIQUE: 2 views of the pelvis and hip. COMPARISON: None. FINDINGS: There is a normal bowel gas pattern. There is postoperative change in the lateral soft tissues with skin janel. There is postoperative change in the pelvis. Normal bilateral iliac wings, sacroiliac joints and visualized sacrum. Normal bilateral superior and inferior pubic rami. Normal pubic symphysis. Normal bilateral ischial tuberosities. There are screws and intramedullary kaylan traversing intertrochanteric fracture of the left proximal femur. There is displacement of the lesser trochanter. Normal acetabulum. Normal hip joint. RAD/Hip Min 2 Views (Portable) IMPRESSION: Status post ORIF left femur fracture. Electronically Signed: Alek Day MD at 23:24 EST ,
[2022-08-05 23:46] LABS: Bedside Glucose 145 mg/dL (74-106)
[2022-08-06] VITALS (11 sets, daily range): BP systolic 93–144; BP diastolic 47–79; PULSE 91–122; RESP 16–18; TEMP 36.3–36.8; O2SAT 98–100
[2022-08-06] MEDS: Cefazolin 1 GM/50 ML BAG IV ×2 (04:09→10:02)
[2022-08-06 05:51] LABS: Absolute Lymphocyte Count 0.85 X10^3/uL (0.83-4.51); Absolute Neutrophil Count 7.2 X10^3/uL (2.0-7.7); Basophil# 0.02 X10^3/uL; Basophil% 0.2 % (0-1); Eosinophils% 1.1 % (0-5); Hematocrit 32.9 % (37-47); Lymphocyte # 0.85 X10^3/ul (0.83-4.51); Lymphocyte % 9.3 % (19-41); Mean Corp Hgb Conc 30.4 g/dL (32-36); Mean Corpuscular Hgb 30.5 pg (27.0-32.0); Mean Corpuscular Volume 100.3 fL (81-99); Mean Platelet Vol. 10.5 fl (6.2-12.0); Monocyte# 0.92 X10^3/uL; NRBC Flagged by Analyzer 0 % (0-5); Neutrophil # 7.21 X10^3/uL (2.7-7.7); Neutrophil % 78.7 % (47-70); Platelet Count 138 K/mm3 (150-450); RBC Distribution Width CV 14.3 % (11.6-14.6); RBC Distribution Width SD 52.3 fl (35.1-43.9); Red Blood Count 3.28 M/mm3 (4.2-5.4); White Blood Count 9.2 K/mm3 (4.4-11.0)
[2022-08-06] MEDS: Acetaminophen 500 MG Tablet 1000 MG PO ×3 (05:57→20:55)
[2022-08-06] MEDS: busPIRone 15 MG TABLET PO (05:57)
[2022-08-06] MEDS: Levothyroxine 100 MCG Tablet PO (05:58)
[2022-08-06] MEDS: HYDROmorphone Inj 0.2 MG/ML SYRINGE IV (05:58)
[2022-08-06] MEDS: 0.9% Saline Lock 10 ML Syringe IV (05:59)
[2022-08-06 06:27] LABS: Anion Gap 8 (5-15); BUN 22 mg/dL (7-18); BUN/Creat Ratio 19.3 RATIO (10-20); Calcium,Total 7.6 mg/dL (8.5-10.1); Chloride 112 mmol/L (98-107); Creatinine, Serum 1.14 mg/dL (0.55-1.02); EST Glomerular Filtration Rate 50 mL/min (>60); Est Glom Filt Rate - Afr Amer 61 mL/min (>60); Estimated Creatinine Clearance 37.87 ml/min; Glucose 172 mg/dL (74-106); Magnesium 2.4 mg/dL (1.6-2.6); Phosphorus 3.2 mg/dL (2.5-4.9); Potassium 4.4 mmol/L (3.5-5.1); Sodium Level 143 mmol/L (136-145)
[2022-08-06 07:46] LABS: Bedside Glucose 172 mg/dL (74-106)
--- NOTE | 2022-08-06 07:51 | PCM.PN.ORT ---
Subjective Subjective Patient lying in bed sleeping. Patient states pain is been very well managed. Patient denies chest pain, shortness of breath, calf pain, nausea vomiting. Patient has no complaints at this time. Objective Data Objective Data Vital Signs: Vital Signs Temp Pulse Resp BP Pulse Ox O2 Del Method O2 Flow Rate 98.2 F 106 H 16 144/79 H 100 Nasal Cannula 3 08/06/22 06:00 08/06/22 06:00 08/06/22 06:00 08/06/22 06:00 08/06/22 07:07 08/06/22 07:07 08/06/22 07:07 Oxygen Flow Rate (L/min) 3 Oxygen Delivery Method Nasal Cannula Weight: 88.3 kg Body Mass Index (BMI) 35.6 Intake & Output: Intake and Output for Last 24 Hours 08/04/22 08/05/22 08/06/22 23:59 23:59 23:59 Intake Total 2467.5 / 2467.5 Output Total 750 / 900 1050 / 1050 375 / 375 Balance -750 / -700 1417.5 / 1417.5 -375 / -375 Lab / Micro Data Result Diagrams: 08/06/22 05:10 08/06/22 05:10 Labs: Laboratory Results - last 24 hr 08/03/22 21:20: Vitamin D 25-Hydroxy 57.2 08/05/22 05:23: Blood Type A POSITIVE, Antibody Screen NEGATIVE, Crossmatch See Detail 08/05/22 05:23: Hemoglobin A1c 7.3 H 08/05/22 07:56: POC Glucose 101 08/05/22 12:23: POC Glucose 113 H 08/05/22 16:34: POC Glucose 114 H 08/05/22 20:16: POC Glucose 140 H 08/05/22 23:01: POC Glucose 145 H 08/06/22 05:10: WBC 9.2, RBC 3.28 L, Hgb 10.0 L, Hct 32.9 L, MCV 100.3 H, MCH 30.5, MCHC 30.4 L, RDW Std Deviation 52.3 H, RDW Coeff of Aubrey 14.3, Plt Count 138 L, MPV 10.5, Immature Gran % (Auto) 0.700, Neut % (Auto) 78.7 H, Lymph % (Auto) 9.3 L, [place] % (Auto) 10.0, Eos % (Auto) 1.1, Baso % (Auto) 0.2, Absolute Neuts (auto) 7.2, Absolute Lymphs (auto) 0.85, Nucleated RBC % 0 08/06/22 05:10: Sodium 143, Potassium 4.4, Chloride 112 H, Carbon Dioxide 23.0, Anion Gap 8, BUN 22 H, Creatinine 1.14 H, Estim Creat Clear Calc 37.87, Est GFR (MDRD) Af Amer 61, Est GFR (MDRD) Non-Af 50 L, BUN/Creatinine Ratio 19.3, Glucose 172 H, Calcium 7.6 L, Phosphorus 3.2, Magnesium 2.4 08/06/22 05:35: POC Glucose 172 H Radiography Diagnostic Testing: Radiology Impression Hip X-Ray 08/05/22 22:19 IMPRESSION: Status post ORIF left femur fracture. Electronically Signed: Alek Day MD at 23:24 EST , Physical Exam Narrative Patient lying in bed sleeping, patient was easy to awake. Patient no respiratory distress, speaking full sentences. Patient moving upper extremities without limitations good muscle tone and strength. Exam of the left hip, the dressings were clean dry intact. Patient had minimal tenderness palpation over the surgical region. Patient had good flexion-extension of the left knee ankle and foot. Patient had no calf tenderness. Neurovascular she was otherwise intact. Vital signs labs reviewed noted medical record. Const alert General Appearance: cooperative HEENT normocephalic Eyes PERRL Resp normal respiratory effort Effort and Inspection: able to speak in complete sentences Extremity normal capillary refill Neuro CN's II-XII intact bilaterally Psych mental status grossly normal Assessment & Plan Assessment/Plan (1) Closed intertrochanteric fracture of left femur: QUALIFIERS: Encounter type: initial encounter Fracture alignment: nondisplaced Qualified Code(s): S72.145A - Nondisplaced intertrochanteric fracture of left femur, initial encounter for closed fracture PLAN: Orthopedically patient is stable 1. Continue all pain medications as prescribed 2. Continue Eliquis as prescribed for postop DVT prophylaxis 3. Continue physical therapy, weight-bear as tolerated with walker 4. Encourage incentive spirometry 5. Continue ice to left hip, continue SCDs and KELLIE hose 6. Patient can shower in 3 days 7. Follow-up with Dr. Chowdhury in 2 weeks 8. Remove janel in 14 days 9. Discharge to ECF when cleared by medicine
[2022-08-06] MEDS: Allopurinol 100 MG Tablet PO (08:04)
[2022-08-06] MEDS: Insulin Lispro 100 UNIT/ML INSULN.PEN SC ×3 (08:05→16:46)
--- NOTE | 2022-08-06 09:45 | CASEMGMT ---
TC derik [facility], [place], they do not service pt for oxygen.
[2022-08-06] MEDS: Metoprolol Tartrate 100 MG Tablet PO ×2 (10:02→20:56)
[2022-08-06] MEDS: Senna/Docusate Sodium 1 Tablet 2 TABLET PO ×2 (10:02→20:55)
[2022-08-06] MEDS: DULoxetine Hcl 60 MG Capsule PO (10:02)
[2022-08-06] MEDS: Pantoprazole Sodium 40 MG Tablet PO (10:02)
[2022-08-06] MEDS: APIXABAN 2.5 MG TABLET (WCH) PO ×2 (10:02→20:55)
[2022-08-06] MEDS: Loratadine 10 MG Tablet PO (10:02)
[2022-08-06] MEDS: Cholecalciferol (VIT D3) 25 MCG TABLET (1,000 UNITS) 50 MCG PO (10:03)
--- NOTE | 2022-08-06 10:55 | PN.HOSP_ITS ---
Subjective Subjective Patient sleepy this morning. Went to the OR theater yesterday afternoon. Still complaining of some pain in the left hip. We did discuss that this will likely be ongoing given the fracture and surgical intervention however she is able to bear weight as tolerated. PT has yet to see her yet today. Objective Data Objective Data Vital Signs: Vital Signs Temp Pulse Resp BP Pulse Ox O2 Del Method O2 Flow Rate 98.2 F 109 H 18 109/49 L 99 Nasal Cannula 3 08/06/22 07:57 08/06/22 10:02 08/06/22 07:57 08/06/22 07:57 08/06/22 07:57 08/06/22 08:08 08/06/22 08:08 Oxygen Flow Rate (L/min) 3 Oxygen Delivery Method Nasal Cannula Weight: 88.3 kg Body Mass Index (BMI) 35.6 Intake & Output: Intake and Output for Last 24 Hours 08/04/22 08/05/22 08/06/22 23:59 23:59 23:59 Intake Total 2467.5 / 2467.5 1100 / 1100 Output Total 750 / 900 1050 / 1050 375 / 375 Balance -750 / -700 1417.5 / 1417.5 725 / 725 Lab / Micro Data Result Diagrams: 08/06/22 05:10 08/06/22 05:10 Labs: Laboratory Results - last 24 hr 08/05/22 12:23: POC Glucose 113 H 08/05/22 16:34: POC Glucose 114 H 08/05/22 20:16: POC Glucose 140 H 08/05/22 23:01: POC Glucose 145 H 08/06/22 05:10: WBC 9.2, RBC 3.28 L, Hgb 10.0 L, Hct 32.9 L, MCV 100.3 H, MCH 30.5, MCHC 30.4 L, RDW Std Deviation 52.3 H, RDW Coeff of Aubrey 14.3, Plt Count 138 L, MPV 10.5, Immature Gran % (Auto) 0.700, Neut % (Auto) 78.7 H, Lymph % (Auto) 9.3 L, [place] % (Auto) 10.0, Eos % (Auto) 1.1, Baso % (Auto) 0.2, Absolute Neuts (auto) 7.2, Absolute Lymphs (auto) 0.85, Nucleated RBC % 0 08/06/22 05:10: Sodium 143, Potassium 4.4, Chloride 112 H, Carbon Dioxide 23.0, Anion Gap 8, BUN 22 H, Creatinine 1.14 H, Estim Creat Clear Calc 37.87, Est GFR (MDRD) Af Amer 61, Est GFR (MDRD) Non-Af 50 L, BUN/Creatinine Ratio 19.3, Glucose 172 H, Calcium 7.6 L, Phosphorus 3.2, Magnesium 2.4 08/06/22 05:35: POC Glucose 172 H Radiography Diagnostic Testing: Radiology Impression Hip X-Ray 08/05/22 22:19 IMPRESSION: Status post ORIF left femur fracture. Electronically Signed: Alek Day MD at 23:24 EST , Physical Exam Const alert, oriented x3, no apparent distress and well nourished Constitutional Narrative: Obese, upper middle-aged white female who appears older than stated age, lying in bed, very somnolent but does awaken and is appropriate HEENT normocephalic and head/scalp atraumatic HEENT Narrative: A dentulous, Mallampati 3, no thrush Head and Scalp: normocephalic Resp normal respiratory effort, no retractions, no use of accessory muscles and clear to auscultation bilaterally Cardio regular rate, regular rhythm, S1 normal heart sound and S2 normal heart sound GI normal to inspection, nondistended, normoactive bowel sounds, soft to palpation and non-tender Extremity no clubbing, cyanosis or edema Extremity Narrative: Left hip with posterior incisions, dressings are clean dry and intact, no significant ecchymosis noted Neuro oriented x3 and no focal motor deficits Neuro Narrative: Patient is somewhat somnolent however appropriate, decreased movement left lower extremity secondary to pain Speech: speech normal Psych Psych Narrative: Affect is flat Assessment & Plan Assessment/Plan (1) Closed intertrochanteric fracture of left femur: QUALIFIERS: Encounter type: initial encounter Fracture alignment: nondisplaced Qualified Code(s): S72.145A - Nondisplaced intertrochanteric fracture of left femur, initial encounter for closed fracture (2) Fall at home: (3) Coagulopathy: (4) Elevated serum creatinine: PLAN: Plan Closed intertrochanteric fracture of the left femur status post mechanical fall -Postop day 1 cephalomedullary nail left femur -Restart Eliquis -PT/OT consultation pending -Bowel regimen -Continue medication for pain control -Vitamin D level on 08/03/2022 was 57.2--> continue home replacement therapy -Anticipate need for skilled discharge -Outpatient follow-up with orthopedic surgery in 2 weeks Serum creatinine elevation on CKD stage III -Acute serum creatinine elevation has resolved and creatinine is now at baseline -Baseline serum creatinine appears to be between 1.1 and 1.4 -Discontinue IV fluids -Repeat BMP in a.m. -Avoid nephrotoxins as able Atrial fibrillation -EKG demonstrates chronic A. fib -Apixaban restarted this morning -Continue home metoprolol DM-2 -Continue home glargine -Continue home NovoLog -Continue sliding scale -Accu-Cheks as ordered Hypothyroidism -Continue home levothyroxine History of CAD -Continue aspirin -Continue home risk factor modifications Hyperlipidemia -Continue home atorvastatin Allergies -Continue home in Hypertension -Continue home metoprolol -Continue home isosorbide mononitrate -If serum creatinine remains stable will reinitiate Lasix tomorrow Gout -Continue home allopurinol GERD -Continue home PPI DVT prophylaxis -Restart Eliquis today -SCDs CODE STATUS -full code Charges/Coding Visit Charges Inpatient E&M: 32325 Subs Hosp L2
[2022-08-06] MEDS: Insulin Lispro 100 UNIT/ML INSULN.PEN 24 UNIT SC (11:58)
[2022-08-06] MEDS: oxyCODONE 5 MG Tablet PO ×2 (12:02→20:39)
[2022-08-06 12:35] LABS: Bedside Glucose 267 mg/dL (74-106)
--- NOTE | 2022-08-06 12:43 | CASEMGMT ---
TOM CM in to pt room, pt sitting up in chair barely able to keep her eyes open. Discussed with patient therapy recommendations. Pt states she lives with her sons and they are not able to take care of her like this. She is agreeable to s/t therapy in a facility and understands she will need this prior to returning home.
[2022-08-06] MEDS: busPIRone 5 MG Tablet 10 MG PO ×2 (13:50→20:54)
--- NOTE | 2022-08-06 14:18 | CASEMGMT ---
Social Work SW in to meet pt and work on discharge plan. SW informed by pt's and therapy team that pt will need placement at SNF. A list of SNF providers including quality and resource use data and consistent with the patient?s preferred geographic region, medical needs, and insurance network were provided from the [facility] Guide. Pt agreeable to discharge planning, however pt was not able to make choice on SNF during the conversation. Pt appeared loopy and not able to have clear thinking process due to medications. SW spoke to pt at length to assist with explaining Medicare star rating and the SNF process. 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 Pt appearing anxious about going to SNF, reports concern for material possessions in her home and that sons that pt lives with will not care for these items appropriately. SW attempted to ease pt anxiety and continued discussion of SNF choice. Pt continued to discuss topics irrelevant to the discharge plan. Pt agreeable to this SW speaking to son, Avery or either daughter however pt does not want children to make decision on placement. Pt unable.unwilling to provide choice at this time. SW to check with pt later this afternoon for choice, in hopes pt is more alert and focused. PLAN: SNF [facility]
--- NOTE | 2022-08-06 15:48 | CASEMGMT ---
Addendum entered by Sofiya Ramsey 08/06/22 15:52: SW called [facility] to inform Admissions that a referral was sent via [facility]. Katelyn answered and responded okay eben, lacey rahman then hung up. [facility] Original Note: Social Work SW called pt daughter, Maci to discuss SNF options. Explained pt struggling to make choice and wants opinion of children. Maci reported [facility] best option as Avery, pt son, has no transportation and would be able to find a ride to a place in [place]. SW discussed with pt and pt now agreeable to [facility]. SW sent referral to [facility] via [facility]. PLAN: [facility], pending acceptance and precert [facility]
[2022-08-06] MEDS: Ascorbic Acid 500 MG Tablet PO (16:46)
[2022-08-06] MEDS: Insulin Lispro 100 UNIT/ML INSULN.PEN 26 UNIT SC (16:46)
[2022-08-06 17:15] LABS: Bedside Glucose 260 mg/dL (74-106)
[2022-08-06] MEDS: Atorvastatin Calcium 40 MG Tablet PO (20:56)
[2022-08-06] MEDS: Insulin Glargine-YFGN 100 UNIT/ML Pen 42 UNIT SC (21:04)
[2022-08-06 22:30] LABS: Bedside Glucose 208 mg/dL (74-106)
[2022-08-07] VITALS (9 sets, daily range): BP systolic 100–122; BP diastolic 47–78; PULSE 84–119; RESP 16–18; TEMP 36.3–36.8; O2SAT 92–100
[2022-08-07] MEDS: Levothyroxine 100 MCG Tablet PO (06:21)
[2022-08-07] MEDS: Acetaminophen 500 MG Tablet 1000 MG PO ×3 (06:21→21:54)
[2022-08-07] MEDS: busPIRone 15 MG TABLET PO (06:22)
[2022-08-07 06:50] LABS: Bedside Glucose 102 mg/dL (74-106)
[2022-08-07 06:56] LABS: Absolute Lymphocyte Count 0.68 X10^3/uL (0.83-4.51); Absolute Neutrophil Count 5.2 X10^3/uL (2.0-7.7); Basophil# 0.02 X10^3/uL; Basophil% 0.3 % (0-1); Eosinophils% 5.6 % (0-5); Hematocrit 28.7 % (37-47); Lymphocyte # 0.68 X10^3/ul (0.83-4.51); Lymphocyte % 9.4 % (19-41); Mean Corp Hgb Conc 31.4 g/dL (32-36); Mean Corpuscular Hgb 30.8 pg (27.0-32.0); Mean Corpuscular Volume 98.3 fL (81-99); Mean Platelet Vol. 10.5 fl (6.2-12.0); Monocyte# 0.82 X10^3/uL; Monocyte% 11.4 % (0-10); NRBC Flagged by Analyzer 0 % (0-5); Neutrophil # 5.24 X10^3/uL (2.7-7.7); Neutrophil % 72.7 % (47-70); Platelet Count 138 K/mm3 (150-450); RBC Distribution Width CV 14.5 % (11.6-14.6); RBC Distribution Width SD 51.9 fl (35.1-43.9); Red Blood Count 2.92 M/mm3 (4.2-5.4); White Blood Count 7.2 K/mm3 (4.4-11.0)
[2022-08-07 07:33] LABS: Anion Gap 2 (5-15); BUN 25 mg/dL (7-18); BUN/Creat Ratio 23.1 RATIO (10-20); Calcium,Total 8.7 mg/dL (8.5-10.1); Chloride 110 mmol/L (98-107); Creatinine, Serum 1.08 mg/dL (0.55-1.02); EST Glomerular Filtration Rate 54 mL/min (>60); Est Glom Filt Rate - Afr Amer 65 mL/min (>60); Estimated Creatinine Clearance 39.98 ml/min; Glucose 104 mg/dL (74-106); Potassium 4.1 mmol/L (3.5-5.1); Sodium Level 141 mmol/L (136-145); Thyroid Stim Hormone (TSH) 1.27 uIU/mL (0.358-3.74)
--- NOTE | 2022-08-07 07:57 | CASEMGMT ---
Discharge Steam Box Tender [facility] accepted patient. This abstract writer asked Katelyn to start pre-cert. Leidy ARIAS Seafood Preparer
[2022-08-07] MEDS: DULoxetine Hcl 60 MG Capsule PO (09:19)
[2022-08-07] MEDS: Pantoprazole Sodium 40 MG Tablet PO (09:20)
[2022-08-07] MEDS: Senna/Docusate Sodium 1 Tablet 2 TABLET PO ×2 (09:20→21:53)
[2022-08-07] MEDS: Metoprolol Tartrate 100 MG Tablet PO ×2 (09:20→22:09)
[2022-08-07] MEDS: APIXABAN 2.5 MG TABLET (WCH) PO ×2 (09:20→21:53)
[2022-08-07] MEDS: Allopurinol 100 MG Tablet PO (09:20)
[2022-08-07] MEDS: Loratadine 10 MG Tablet PO (09:20)
[2022-08-07] MEDS: Sodium Chloride 0.65% 1 SPRAY SPRAY.BTL 2 SPRAY NASAL (09:21)
[2022-08-07] MEDS: Cholecalciferol (VIT D3) 25 MCG TABLET (1,000 UNITS) 50 MCG PO (09:21)
[2022-08-07] MEDS: Insulin Glargine-YFGN 100 UNIT/ML Pen 42 UNIT SC (09:22)
[2022-08-07 11:51] LABS: Bedside Glucose 234 mg/dL (74-106)
[2022-08-07] MEDS: Insulin Lispro 100 UNIT/ML INSULN.PEN 24 UNIT SC (13:44)
[2022-08-07] MEDS: Insulin Lispro 100 UNIT/ML INSULN.PEN SC ×2 (13:45→18:07)
[2022-08-07] MEDS: busPIRone 5 MG Tablet 10 MG PO ×2 (13:46→21:52)
--- NOTE | 2022-08-07 14:18 | CASEMGMT ---
TC to [facility] to verify oxygen rx. Left message on rep line, requested returned call.
--- NOTE | 2022-08-07 17:08 | PCM.PN.HOSP ---
Subjective Subjective More alert today. Complaining of hip pain but states the pain is manageable with the medications were giving her. No significant issues overnight. Plan is for discharge to skilled facility once pre-CERT is obtained. Objective Data Objective Data Vital Signs: Vital Signs Temp Pulse Resp BP Pulse Ox O2 Del Method O2 Flow Rate 98.3 F 84 16 107/47 L 98 Nasal Cannula 3 08/07/22 16:10 08/07/22 16:10 08/07/22 16:10 08/07/22 16:10 08/07/22 16:10 08/07/22 16:10 08/07/22 16:10 Oxygen Flow Rate (L/min) 3 Oxygen Delivery Method Nasal Cannula Weight: 88.3 kg Body Mass Index (BMI) 35.6 Intake & Output: Intake and Output for Last 24 Hours 08/05/22 08/06/22 08/07/22 23:59 23:59 23:59 Intake Total 2467.5 / 2467.5 1100 / 1100 Output Total 1050 / 1050 375 / 375 Balance 1417.5 / 1417.5 725 / 725 Lab / Micro Data Result Diagrams: 08/07/22 05:45 08/07/22 05:45 Labs: Laboratory Results - last 24 hr 08/06/22 16:44: POC Glucose 260 H 08/06/22 21:02: POC Glucose 208 H 08/07/22 05:45: WBC 7.2, RBC 2.92 L, Hgb 9.0 L, Hct 28.7 L, MCV 98.3, MCH 30.8, MCHC 31.4 L, RDW Std Deviation 51.9 H, RDW Coeff of Aubrey 14.5, Plt Count 138 L, MPV 10.5, Immature Gran % (Auto) 0.600, Neut % (Auto) 72.7 H, Lymph % (Auto) 9.4 L, [place] % (Auto) 11.4 H, Eos % (Auto) 5.6 H, Baso % (Auto) 0.3, Absolute Neuts (auto) 5.2, Absolute Lymphs (auto) 0.68 L, Nucleated RBC % 0 08/07/22 05:45: Sodium 141, Potassium 4.1, Chloride 110 H, Carbon Dioxide 29.0, Anion Gap 2 L, BUN 25 H, Creatinine 1.08 H, Estim Creat Clear Calc 39.98, Est GFR (MDRD) Af Amer 65, Est GFR (MDRD) Non-Af 54 L, BUN/Creatinine Ratio 23.1 H, Glucose 104, Calcium 8.7, TSH 1.27 08/07/22 06:29: POC Glucose 102 08/07/22 11:29: POC Glucose 234 H Radiography Diagnostic Testing: Radiology Impression Hip X-Ray 08/05/22 18:25 IMPRESSION: Intraoperative imaging for hardware localization. Electronically Signed: Fernanda Carrillo MD at 23:43 EST Reading Location ID and State: [id number] / Tel , Service support , Physical Exam Const alert, oriented x3, no apparent distress and well nourished Constitutional Narrative: Obese, upper middle-aged white female who appears older than stated age, sitting up in chair at the bedside, eating breakfast and watching television, appears comfortable and nontoxic HEENT normocephalic and head/scalp atraumatic HEENT Narrative: Dentition is poor, Mallampati 3, no thrush Head and Scalp: normocephalic Resp normal respiratory effort, no retractions, no use of accessory muscles and clear to auscultation bilaterally Cardio regular rate, S1 normal heart sound, S2 normal heart sound, no murmurs, no rub, no gallops and no clicks Cardio Narrative: Irregular irregular rhythm with controlled rate GI normal to inspection, nondistended, normoactive bowel sounds, soft to palpation and non-tender GI Narrative: Pain out of proportion to exam Extremity no clubbing, cyanosis or edema Extremity Narrative: 2+ pedal pulses Neuro oriented x3 and no focal motor deficits Neuro Narrative: Patient is somewhat somnolent however appropriate, decreased movement left lower extremity secondary to pain Speech: speech normal Psych Psych Narrative: Affect is flat Mood & Affect: anxious Assessment & Plan Assessment/Plan (1) Closed intertrochanteric fracture of left femur: QUALIFIERS: Encounter type: initial encounter Fracture alignment: nondisplaced Qualified Code(s): S72.145A - Nondisplaced intertrochanteric fracture of left femur, initial encounter for closed fracture (2) Fall at home: (3) Coagulopathy: (4) Elevated serum creatinine: PLAN: Plan Closed intertrochanteric fracture of the left femur status post mechanical fall -Postop day 2 cephalomedullary nail left femur -Continue Eliquis -PT/OT following -Bowel regimen -Continue medication for pain control -Vitamin D level on 08/03/2022 was 57.2--> continue home replacement therapy -Plan is for [place] discharge and currently awaiting pre-CERT -Outpatient follow-up with orthopedic surgery in 2 weeks CKD stage III -Creatinine remains at baseline -Baseline serum creatinine appears to be between 1.1 and 1.4 -Repeat BMP in a.m. -Avoid nephrotoxins as able Atrial fibrillation -EKG demonstrates chronic A. fib -Upon auscultation patient seems to remain in A. fib -Continue apixaban -Continue home metoprolol DM-2 -Continue home glargine -Continue home NovoLog -Continue sliding scale -Accu-Cheks as ordered -Sugar control appears to be overall good--> continue to monitor Hypothyroidism -Continue home levothyroxine History of CAD -Continue aspirin -Continue home risk factor modifications Hyperlipidemia -Continue home atorvastatin Allergies -Continue home in Hypertension -Continue home metoprolol -Continue home isosorbide mononitrate -If serum creatinine remains stable will reinitiate Lasix tomorrow Gout -Continue home allopurinol GERD -Continue home PPI DVT prophylaxis -Continue Eliquis -SCDs CODE STATUS -full code Charges/Coding Visit Charges Inpatient E&M: 27747 Subs Hosp L2
[2022-08-07] MEDS: Insulin Lispro 100 UNIT/ML INSULN.PEN 26 UNIT SC (18:06)
[2022-08-07] MEDS: Ascorbic Acid 500 MG Tablet PO (18:08)
[2022-08-07 18:41] LABS: Bedside Glucose 187 mg/dL (74-106)
[2022-08-07] MEDS: Atorvastatin Calcium 40 MG Tablet PO (21:53)
[2022-08-07] MEDS: oxyCODONE 5 MG Tablet PO (21:56)
[2022-08-07 22:35] LABS: Bedside Glucose 95 mg/dL (74-106)
[2022-08-08] VITALS (9 sets, daily range): BP systolic 96–122; BP diastolic 46–74; PULSE 85–111; RESP 16–18; TEMP 36.3–36.9; O2SAT 92–100
[2022-08-08] MEDS: busPIRone 15 MG TABLET PO (06:06)
[2022-08-08] MEDS: Levothyroxine 100 MCG Tablet PO (06:06)
[2022-08-08] MEDS: Acetaminophen 500 MG Tablet 1000 MG PO ×2 (06:07→13:44)
[2022-08-08 06:38] LABS: Absolute Lymphocyte Count 0.81 X10^3/uL (0.83-4.51); Basophil# 0.01 X10^3/uL; Basophil% 0.2 % (0-1); Eosinophil# 0.39 X10^3/uL; Eosinophils% 6.5 % (0-5); Hematocrit 27.8 % (37-47); Hemoglobin 8.5 g/dL (12.0-15.0); Lymphocyte # 0.81 X10^3/ul (0.83-4.51); Lymphocyte % 13.5 % (19-41); Mean Corp Hgb Conc 30.6 g/dL (32-36); Mean Corpuscular Hgb 30.2 pg (27.0-32.0); Mean Corpuscular Volume 98.9 fL (81-99); Mean Platelet Vol. 10.7 fl (6.2-12.0); Monocyte# 0.73 X10^3/uL; Monocyte% 12.1 % (0-10); NRBC Flagged by Analyzer 0.5 % (0-5); Neutrophil # 4.02 X10^3/uL (2.7-7.7); Neutrophil % 66.7 % (47-70); Platelet Count 168 K/mm3 (150-450); RBC Distribution Width CV 14.5 % (11.6-14.6); Red Blood Count 2.81 M/mm3 (4.2-5.4)
[2022-08-08 06:40] LABS: Bedside Glucose 158 mg/dL (74-106)
[2022-08-08 08:20] LABS: Bedside Glucose 147 mg/dL (74-106)
[2022-08-08] MEDS: Insulin Lispro 100 UNIT/ML INSULN.PEN 16 UNIT SC (08:24)
[2022-08-08] MEDS: Allopurinol 100 MG Tablet PO (08:24)
--- NOTE | 2022-08-08 09:37 | CASEMGMT ---
Discharge Analytical Chemist This keno writer/runner called Katelyn at [facility] to see if pre-cert was obtained. Katelyn is not in her office. This keno writer/runner sent a message via [facility]. Leidy ARIAS General Engineer
[2022-08-08] MEDS: Loratadine 10 MG Tablet PO (09:43)
[2022-08-08] MEDS: DULoxetine Hcl 60 MG Capsule PO (09:43)
[2022-08-08] MEDS: APIXABAN 2.5 MG TABLET (WCH) PO (09:44)
[2022-08-08] MEDS: Insulin Glargine-YFGN 100 UNIT/ML Pen 42 UNIT SC (09:44)
[2022-08-08] MEDS: Metoprolol Tartrate 100 MG Tablet PO (09:45)
[2022-08-08] MEDS: Sodium Chloride 0.65% 1 SPRAY SPRAY.BTL 2 SPRAY NASAL (09:45)
[2022-08-08] MEDS: Senna/Docusate Sodium 1 Tablet 2 TABLET PO (09:45)
[2022-08-08] MEDS: Pantoprazole Sodium 40 MG Tablet PO (09:46)
[2022-08-08] MEDS: Cholecalciferol (VIT D3) 25 MCG TABLET (1,000 UNITS) 50 MCG PO (09:46)
--- NOTE | 2022-08-08 10:07 | CASEMGMT ---
Discharge Bed Spring Maker Katelyn reached out via [facility] yesterday 08/07/22 @ 13:48 pre-cert has been obtained. This com writer clarified this morning and Katelyn said pre-cert was obtained and patient can come when medically ready. BLAKE Lara notified. Leidy ARIAS Interactive Media Project Manager
--- NOTE | 2022-08-08 10:57 | PCM.TXEXTCAR ---
Diet Diet Order/Speech Therapy: 08/06/22 11:28 Diet: Consistent Carb - Calorie Controlled Is pt able to select menu?: Yes How many daily calories?: 2000 calorie Routine Orders/Code Status Suppository Frequency: Daily PRN O2 Liters per Minute: 3 O2 Frequency: Continuous Keep PO Greater than or Equal to (%): 92 Routine Lab Work: CBC (1 week) and BMP (1 week) Code Status: Full Code Wound(s) LFA: Wound Type: Abrasion L HIP: Wound Type: Surgical Incision LEFT LOWER HIP: Wound Type: Surgical Incision LEFT OUTER KNEE: Wound Type: Surgical Incision Suggestions for Active Care Change Position every (hours): 2 Therapies Weight Bearing: Weight bearing as tolerated Physical Therapy: Eval and Treat Occupational Therapy: Eval and Treat Problem/Diagnosis (1) Closed intertrochanteric fracture of left femur: Status: Acute Code(s): S72.142A - Displaced intertrochanteric fracture of left femur, initial encounter for closed fracture (2) Fall at home: Status: Acute Code(s): W19.XXXA - Unspecified fall, initial encounter; Y92.009 - Unspecified place in unspecified non-institutional (private) residence as the place of occurrence of the external cause (3) Coagulopathy: Status: Acute Code(s): D68.9 - Coagulation defect, unspecified (4) Elevated serum creatinine: Status: Acute Code(s): R79.89 - Other specified abnormal findings of blood chemistry Allergies/Procedures Done in Hospital Allergies ciprofloxacin [From Cipro] Allergy (Verified 06/12/22 13:42) Hives latex Allergy (Verified 06/12/22 13:42) matos me niacin [From Niaspan Extended-Release] Allergy (Verified 06/12/22 13:42) Hives ondansetron [From Zofran] Allergy (Verified 06/12/22 13:42) Unknown ranolazine [From Ranexa] Allergy (Verified 06/12/22 13:42) Itching Xanthines Allergy (Verified 06/12/22 13:42) Unknown adhesive tape Adverse Reaction (Verified 06/12/22 13:42) Other MEDICAL TAPE - BLISTERS orphenadrine citrate [From Norgesic] Adverse Reaction (Verified 06/12/22 13:42) groggy Procedures: EKG Type of Care/Length of Stay Estimated LOS: Convalescent Care Less Than 30 days Type of Care Needed: Skilled Rehab Potential: Fair Prognosis: Good Additional Orders/Day of Discharge Day of Discharge: 08/08/22 Discharge Plan Admission Admit Date/Time: 08/03/22 19:45 Attending Provider: Michelle Gregg Primary Care Provider: Bhupendra Oliveira Consulting Providers: Vahid Chowdhury ; Zuhair Cohn ; Roger Yang Discharge Orders/Prescriptions Prescriptions: No Action potassium chloride 10 mEq tablet extended release 10 meq PO DAILY docusate sodium 100 mg capsule 100 mg PO QHS PRN (Reason: constipation) allopurinol 100 mg tablet 100 mg PO DAILY buspirone 10 mg tablet 10 mg PO TID Rx Instructions: 10mg bid and 15mg daily nitroglycerin 0.4 mg tablet, sublingual 0.4 mg sublingual Q5-15M PRN (Reason: chest pain) Qty: 25 3RF Saline Mist 0.65 % aerosol,spray 2 spray intranasal DAILY atorvastatin 40 MG tablet 40 mg PO QHS Label Comments: cholesterol levothyroxine 100 MCG tablet 100 mcg PO DAILY Label Comments: thyroid duloxetine 60 mg capsule,delayed release(DR/EC) 60 mg PO DAILY Label Comments: mental health ascorbic acid (vitamin C) 500 MG tablet 500 mg PO DAILY@1700 Label Comments: Supplement apixaban 2.5 MG tablet 2.5 mg PO BID Label Comments: .Blood thinner aspirin 81 MG tablet 81 mg PO DAILY@1700 fexofenadine 180 mg tablet 180 mg PO DAILY omeprazole 40 MG capsule,delayed release(DR/EC) 40 mg PO DAILY furosemide 20 MG tablet 20 mg PO BID cholecalciferol (vitamin D3) 50 MCG capsule 2,000 unit PO DAILY insulin glargine 100 unit/mL (3 mL) insulin pen 42 unit SC BID insulin lispro 100 unit/mL insulin pen 16 unit SC BREAKFAST insulin lispro 100 unit/mL insulin pen 24 unit SC LUNCH insulin lispro 100 unit/mL insulin pen 26 unit SC DINNER isosorbide mononitrate 120 mg tablet extended release 24 hr 120 mg PO DAILY Qty: 90 3RF metoprolol tartrate 100 mg tablet 100 mg PO BID Qty: 30 11RF Referrals / Follow Up: Bhupendra Oliveira MD [Primary Care Provider] - (1) Closed intertrochanteric fracture of left femur Qualifiers: Encounter type: initial encounter Fracture alignment: nondisplaced Qualified Code(s): S72.145A - Nondisplaced intertrochanteric fracture of left femur, initial encounter for closed fracture
--- NOTE | 2022-08-08 10:58 | PCM.DC.SUM ---
Providers Date of Admission: 08/03/22 Primary Care Physician: Dr. Bhupendra Oliveira MD Consultations 08/03/22 20:58 Consult: Orthopedics Routine Consulting Provider: Vahid Chowdhury Reason for Consult: left hip fxr. EMERGENT Consult: No MD Notified: Yes Date Notified: 08/03/22 Time Notified: 19:57 Method of Notification: ED Physician Initiated Reason For Visit: HIP FRACTURE Diagnosis Discharge Diagnosis (1) Closed intertrochanteric fracture of left femur: Status: Acute Code(s): S72.142A - Displaced intertrochanteric fracture of left femur, initial encounter for closed fracture Qualifiers: Encounter type: initial encounter Fracture alignment: nondisplaced Qualified Code(s): S72.145A - Nondisplaced intertrochanteric fracture of left femur, initial encounter for closed fracture (2) Fall at home: Status: Acute Code(s): W19.XXXA - Unspecified fall, initial encounter; Y92.009 - Unspecified place in unspecified non-institutional (private) residence as the place of occurrence of the external cause (3) Coagulopathy: Status: Acute Code(s): D68.9 - Coagulation defect, unspecified (4) Elevated serum creatinine: Status: Acute Code(s): R79.89 - Other specified abnormal findings of blood chemistry Plan Closed intertrochanteric fracture of the left femur status post mechanical fall -Postop day 2 cephalomedullary nail left femur -Continue Eliquis -PT/OT following -Bowel regimen -Continue medication for pain control -Vitamin D level on 08/03/2022 was 57.2--> continue home replacement therapy -Plan is for [place] discharge and currently awaiting pre-CERT -Outpatient follow-up with orthopedic surgery in 2 weeks CKD stage III -Creatinine remains at baseline -Baseline serum creatinine appears to be between 1.1 and 1.4 -Repeat BMP in a.m. -Avoid nephrotoxins as able Atrial fibrillation -EKG demonstrates chronic A. fib -Upon auscultation patient seems to remain in A. fib -Continue apixaban -Continue home metoprolol DM-2 -Continue home glargine -Continue home NovoLog -Continue sliding scale -Accu-Cheks as ordered -Sugar control appears to be overall good--> continue to monitor Hypothyroidism -Continue home levothyroxine History of CAD -Continue aspirin -Continue home risk factor modifications Hyperlipidemia -Continue home atorvastatin Allergies -Continue home in Hypertension -Continue home metoprolol -Continue home isosorbide mononitrate -If serum creatinine remains stable will reinitiate Lasix tomorrow Gout -Continue home allopurinol GERD -Continue home PPI DVT prophylaxis -Continue Eliquis -SCDs CODE STATUS -full code Medications at Discharge Home Medications atorvastatin 40 mg tablet 40 mg PO QHS CHOLESTEROL LOWERING 02/03/18 levothyroxine 100 mcg tablet 100 mcg PO DAILY THYROID 02/03/18 apixaban 2.5 mg tablet 2.5 mg PO BID Blood thinner 05/17/18 ascorbic acid (vitamin C) 500 mg tablet 500 mg PO DAILY@1700 supplement 05/17/18 aspirin 81 mg tablet,delayed release 81 mg PO DAILY@1700 Heart 09/02/18 potassium chloride 10 mEq tablet,extended release 10 meq PO DAILY supplement 06/08/19 allopurinol 100 mg tablet 100 mg PO DAILY gout 08/11/19 furosemide 20 mg tablet 20 mg PO BID FLUID 10/25/20 omeprazole 40 mg capsule,delayed release 40 mg PO DAILY GERD 10/25/20 cholecalciferol (vitamin D3) 50 mcg (2,000 unit) capsule 2,000 unit PO DAILY SUPPLEMENT 12/13/20 nitroglycerin 0.4 mg sublingual tablet 0.4 mg sublingual Q5-15M PRN chest pain #25 tabs 06/05/21 isosorbide mononitrate 120 mg tablet,extended release 24 hr 120 mg PO DAILY #90 tabs 09/17/21 metoprolol tartrate 100 mg tablet 100 mg PO BID Heart Rate #30 tabs 01/25/22 buspirone 10 mg tablet 10 mg PO TID depression 06/12/22 docusate sodium 100 mg capsule 100 mg PO QHS PRN constipation 06/12/22 duloxetine 60 mg capsule,delayed release 60 mg PO DAILY MENTAL HEALTH 06/12/22 fexofenadine 180 mg tablet 180 mg PO DAILY 06/12/22 insulin glargine 100 unit/mL (3 mL) subcutaneous pen 42 unit subcut BID DM 06/12/22 insulin lispro 100 unit/mL subcutaneous pen 16 unit subcut BREAKFAST 06/12/22 insulin lispro 100 unit/mL subcutaneous pen 24 unit subcut LUNCH 06/12/22 insulin lispro 100 unit/mL subcutaneous pen 26 unit subcut DINNER 06/12/22 sodium chloride 0.65 % nasal spray aerosol (Saline Mist) 2 spray intranasal DAILY 06/12/22 oxycodone 5 mg tablet 5 mg PO Q6H PRN PRN Pain Score 4-10 1 day #4 tabs 08/08/22 sennosides 8.6 mg-docusate sodium 50 mg tablet (Stool Softener-Stimulant Laxative) 2 tab PO BID #0 tabs 08/08/22 Hospital Course Operations - (Left hip cephalomedullary nail placement) Procedures EKG Summary of Care Provided Minutes Spent on Discharge: 38 Hospital Course: Mrs. Figueroa is a 67-year-old white female who presented to the emergency department [facility] on 08/03/2022 after mechanical fall at which time she got wrapped around her oxygen tubing. She reported she hit the wall and then hit the floor. She was complaining of pain all over and currently in her back and legs and arms. X-rays were performed in the emergency department and showed an impacted left intertrochanteric fracture of the hip. All other x-rays were negative for any fractures. CT of the head was negative for any bleeding or acute findings and CT of the cervical spine was negative as well. She was admitted to the medical floor and surgery was delayed given the fact that she is chronically anticoagulated with apixaban. Her apixaban was held and she was taken to the OR on 08/05/2022 at which time a left hip cephalomedullary nail was placed. She tolerated the procedure well with minimal blood loss. Orthopedic surgery made her weightbearing as tolerated on her left lower extremity and Eliquis was resumed on 08/06/2022. She was also to continue knee-high stockings and recommendations for follow-up in orthopedic office-Dr. Chowdhury-was to be in 2 weeks. She had slight elevation in her serum creatinine before surgery however this resolved after fluids with surgery. Hemoglobin dropped some during her hospital course but had stabilized prior to discharge. I do recommend a repeat CBC be done within 1 week. Her blood pressures were on the low side of normal during her hospital course and we held her isosorbide. It seemed to be related to her pain medication. I do recommend we continue to hold this and her Lasix until her need for narcotics as and her blood pressure increases. We did continue her mature blood has a history of chronic atrial fibrillation. All her other home medications were maintained and she was written for 1 day supply of pain medication at the time of discharge. She was seen by occupational physical therapy prior to discharge and they recommended ongoing inpatient rehab/skilled facility placement and patient and family chose [facility]. She was accepted for admission and pre-CERT was obtained on 08/08/2022. The patient was discharged in stable condition on 08/08/2022. I recommend she follow-up with her primary care physician within the next month. Discharge diagnoses: Closed intertrochanteric fracture of the left femur status post mechanical fall CKD stage IIIa -Persistent atrial fibrillation DM-2 Hypothyroidism History of CAD Hyperlipidemia Seasonal allergies Hypertension History of gout GERD Physical Exam Const alert, oriented x3, no apparent distress and well nourished Constitutional Narrative: Obese, upper middle-aged white female who appears older than stated age, sitting up in chair at the bedside, eating breakfast and watching television, appears comfortable and nontoxic General Appearance: cooperative, comfortable, well kempt and well developed Orientation / Consciousness: awake, oriented to person, oriented to place and oriented to time Exam Limitations: no limitations Nutritional Appearance: obese HEENT normocephalic, head/scalp atraumatic, hearing grossly normal bilaterally and moist oral mucous membranes HEENT Narrative: Dentition is poor, Mallampati 3, no thrush Eyes PERRL and EOMs intact bilaterally Eyes Narrative: Conjunctiva are mildly pale, no scleral icterus Neck no lymphadenopathy and supple Neck Narrative: Trachea midline, no thyroid enlargement Resp normal respiratory effort, no retractions, no use of accessory muscles and clear to auscultation bilaterally Cardio regular rate, regular rhythm, S1 normal heart sound, S2 normal heart sound, no murmurs, no rub, no gallops and no clicks Cardio Narrative: Irregular irregular rhythm with controlled rate GI normal to inspection, nondistended, normoactive bowel sounds, soft to palpation and non-tender GI Narrative: Pain out of proportion to exam Extremity no clubbing, cyanosis or edema Extremity Narrative: 2+ pedal pulses Skin no rashes or lesions noted, no wounds, skin turgor normal and no jaundice Skin Narrative: Postoperative wound with dressing in place dry and intact Neuro oriented x3, CN's II-XII intact bilaterally and no focal motor deficits Neuro Narrative: Patient is somewhat somnolent however appropriate, decreased movement left lower extremity secondary to pain Speech: speech normal Psych affect normal Psych Narrative: Patient was appropriately interactive and very pleasant Weight / BMI Weight Weight: 88.3 kg Body Mass Index (BMI) 35.6 ABG / Lab / Microbiology Data Result Diagrams: 08/08/22 05:35 08/07/22 05:45 Laboratory: Laboratory Results - last 24 hr 08/05/22 05:23: Crossmatch See Detail 08/07/22 11:29: POC Glucose 234 H 08/07/22 18:04: POC Glucose 187 H 08/07/22 21:50: POC Glucose 95 08/08/22 05:35: WBC 6.0, RBC 2.81 L, Hgb 8.5 L, Hct 27.8 L, MCV 98.9, MCH 30.2, MCHC 30.6 L, RDW Std Deviation 52.0 H, RDW Coeff of Aubrey 14.5, Plt Count 168, MPV 10.7, Immature Gran % (Auto) 1.000 H, Neut % (Auto) 66.7, Lymph % (Auto) 13.5 L, [place] % (Auto) 12.1 H, Eos % (Auto) 6.5 H, Baso % (Auto) 0.2, Absolute Neuts (auto) 4.0, Absolute Lymphs (auto) 0.81 L, Nucleated RBC % 0.5 08/08/22 06:09: POC Glucose 158 H 08/08/22 08:02: POC Glucose 147 H Meaningful Use Info Meaningful Use Diagnoses (Choose all that apply): None applicable Discharge Plan Admission Admit Date/Time: 08/03/22 19:45 Primary Reason for Your Visit: L Leg Pain Attending Provider: Michelle Gregg Primary Care Provider: Bhupendra Oliveira Consulting Providers: Vahid Chowdhury ; Zuhair Cohn ; Roger Yang Discharge Orders/Prescriptions Prescriptions: New sennosides-docusate sodium [Stool Softener-Stimulant Laxat] 8.6-50 mg Tablet 2 tab PO BID Qty: 0 0RF oxycodone 5 mg Tablet 5 mg PO Q6H PRN PRN (Reason: Pain Score 4-10) 1 Days Qty: 4 0RF Continued docusate sodium 100 mg capsule 100 mg PO QHS PRN (Reason: constipation) allopurinol 100 mg tablet 100 mg PO DAILY buspirone 10 mg tablet 10 mg PO TID Rx Instructions: 10mg bid and 15mg daily nitroglycerin 0.4 mg tablet, sublingual 0.4 mg sublingual Q5-15M PRN (Reason: chest pain) Qty: 25 3RF Saline Mist 0.65 % aerosol,spray 2 spray intranasal DAILY atorvastatin 40 MG tablet 40 mg PO QHS Label Comments: cholesterol levothyroxine 100 MCG tablet 100 mcg PO DAILY Label Comments: thyroid duloxetine 60 mg capsule,delayed release(DR/EC) 60 mg PO DAILY Label Comments: mental health ascorbic acid (vitamin C) 500 MG tablet 500 mg PO DAILY@1700 Label Comments: Supplement apixaban 2.5 MG tablet 2.5 mg PO BID Label Comments: .Blood thinner aspirin 81 MG tablet 81 mg PO DAILY@1700 fexofenadine 180 mg tablet 180 mg PO DAILY omeprazole 40 MG capsule,delayed release(DR/EC) 40 mg PO DAILY cholecalciferol (vitamin D3) 50 MCG capsule 2,000 unit PO DAILY insulin glargine 100 unit/mL (3 mL) insulin pen 42 unit SC BID insulin lispro 100 unit/mL insulin pen 16 unit SC BREAKFAST insulin lispro 100 unit/mL insulin pen 24 unit SC LUNCH insulin lispro 100 unit/mL insulin pen 26 unit SC DINNER metoprolol tartrate 100 mg tablet 100 mg PO BID Qty: 30 11RF Held potassium chloride 10 mEq tablet extended release 10 meq PO DAILY Hold Instructions: until lasix restarted furosemide 20 MG tablet 20 mg PO BID Hold Instructions: hold until BP will allow reinitiation isosorbide mononitrate 120 mg tablet extended release 24 hr 120 mg PO DAILY Qty: 90 3RF Hold Instructions: until BP allows Referrals / Follow Up: Bhupendra Oliveira MD [Primary Care Provider] - Within 1 Month Vahid Chowdhury MD [Med Staff - Active Staff] - Within 2 Weeks Disposition Disposition (needs filled in before D/C Order can be placed): Senior Living Facility Charges/Coding Visit Charges Inpatient E&M: 57015 SNF Disch >30 Min
[2022-08-08 12:10] LABS: Bedside Glucose 197 mg/dL (74-106)
--- NOTE | 2022-08-08 13:17 | CASEMGMT ---
Social Work Precert has been obtained for admission to [facility], physician notified and pt is ready for discharge today. 7000 convalescent form completed in [facility] and sent along with discharge orders and covid results to [facility] via [facility]. [facility] arranged with [facility] for 1500 pickup via cot. SW met with pt and informed of discharge and she is agreeable. With pt permission, phone call to [facility] and updated on discharge. Phone call to Katelyn at [facility] and notified of d/c time. Nursing updated. Discharge orders/summary faxed to pt [facility] JOSEFINA Toure. Disposition: [facility], skilled level of care under convalescent stay SRINATH Garcia
[2022-08-08] MEDS: Insulin Lispro 100 UNIT/ML INSULN.PEN SC (13:43)
[2022-08-08] MEDS: Insulin Lispro 100 UNIT/ML INSULN.PEN 24 UNIT SC (13:43)
[2022-08-08] MEDS: busPIRone 5 MG Tablet 10 MG PO (13:44)
== END 2022-08-08 15:15 | disposition skilled nursing facility (03) | DRG 481 ==
LOC: ED 19:26 → MS3 19:49
PROVIDERS: Anesthesiology; Family Medicine; Specialist; Emergency Provider Emergency Medicine; PCP Family Medicine; Visit Provider Internal Medicine
PROC: 0QS736Z Reposition Left Upper Femur with Intramedullary Internal Fixation Device, Percutaneous Approach (ICD-10-PCS; CPT 27245; principal; 2022-08-05 09:30)
DX: S72.145A Nondisplaced intertrochanteric fracture of left femur, initial encounter for closed fracture (principal); D68.9 Coagulation defect, unspecified; I48.20 Chronic atrial fibrillation, unspecified; I27.20 Pulmonary hypertension, unspecified; E11.22 Type 2 diabetes mellitus with diabetic chronic kidney disease; J44.9 Chronic obstructive pulmonary disease, unspecified; Z79.4 Long term (current) use of insulin; N18.31 Chronic kidney disease, stage 3a; E03.9 Hypothyroidism, unspecified; E78.2 Mixed hyperlipidemia; I25.10 Atherosclerotic heart disease of native coronary artery without angina pectoris; I12.9 Hypertensive chronic kidney disease with stage 1 through stage 4 chronic kidney disease, or unspecified chronic kidney disease; M54.9 Dorsalgia, unspecified; S40.812A Abrasion of left upper arm, initial encounter; W18.09XA Striking against other object with subsequent fall, initial encounter; S39.012A Strain of muscle, fascia and tendon of lower back, initial encounter; M10.9 Gout, unspecified; K21.9 Gastro-esophageal reflux disease without esophagitis; R07.9 Chest pain, unspecified; Y93.01 Activity, walking, marching and hiking; Y92.008 Other place in unspecified non-institutional (private) residence as the place of occurrence of the external cause; Z20.822 Contact with and (suspected) exposure to COVID-19; M85.80 Other specified disorders of bone density and structure, unspecified site; Z79.82 Long term (current) use of aspirin; Z79.01 Long term (current) use of anticoagulants; Z79.899 Other long term (current) drug therapy; Z87.891 Personal history of nicotine dependence
CPT/HCPCS: 36415; 70450; 71045; 72125; 72170; 73060; 73090; 73502; 73552; 73590; 76000; 80048; 80053; 82306; 82962; 83036; 83735; 84100; 84443; 84484; 85025; 86850; 86900; 86901; 86902; 86920; 86922; 87426; 93005; 97110; 97116; 97162; 97166; 97530; 97535; 99251; 99285; C1713; J7030; J7120; A4216; G0463; J2405

== ENCOUNTER → 2022-09-18 | Outpatient (CLI) | payer MEDICARE, MEDICAID, SELFPAY ==
--- NOTE | 2022-09-18 15:45 | VDLE_ITS ---
Reason For Study: LLE pain Procedure LEFT This is a venous duplex using B-mode, color GSV is normal. flow and spectral Doppler. CFV is compressible, spontaneous, phasic, Exam performed in department. competent, and demonstrates normal A preliminary report was called and/or faxed augmentation. to [facility]. FV is compressible, spontaneous, phasic, competent and demonstrates normal augmentation. POP V is compressible, spontaneous, phasic, competent and demonstrates normal augmentation. T/P Trunk is compressible. PTV is compressible. LT PerV is compressible. VL/Venous Duplex US, Unilateral Interpretation Summary There is no evidence of left lower extremity deep vein thrombosis. Left great s aphenous vein appears patent and compressible segmentally. Ordering Physician: Vahid Chowdhury Referring Physician: David Oliveira Performed By: Joyce Ash RVT
== END | disposition home or self-care (01) ==
LOC: CVS 15:44
PROVIDERS: PCP Family Medicine; Referring Provider Specialist; Visit Provider Specialist
DX: M79.605 Pain in left leg (principal)
CPT/HCPCS: 93971

== ENCOUNTER → 2022-10-15 | Outpatient (CLI) | payer MEDICARE, MEDICAID, SELFPAY ==
--- NOTE | 2022-10-15 10:51 | STRESSREP ---
Stress Test Report Date: 10-15-2022 Procedure: Pharmacologic stress nuclear imaging study Indications: Chest pain; CAD; PCI; atrial fibrillation; chronic diastolic mediated CHF; hyperlipidemia; hypertension; thromboembolic disease; preoperative cardiovascular evaluation Consent: Per the patient Procedure: The patient underwent pharmacologic (Regadenoson 0.4mg ) evaluation with a peak heart rate of 120 beats per minute (78%predicted maximal heart rate) and a resting blood pressure of 136/84 mmHg and a peak blood pressure of 136/84 mmHg. The baseline ECG demonstrated atrial fibrillation. The peak pharmacologic ECG demonstrated no obvious ECG changes. There were no cardiac dysrhythmias pretest, during pharmacologic infusion, or recovery. There was no complaint of chest discomfort during pharmacologic infusion or recovery. The examination was discontinued secondary to completion of protocol. Impression: 1. Pharmacologic (Regadenoson) evaluation 2. Peak pharmacologic ECG with no obvious ECG changes. 3. There were no cardiac dysrhythmias pretest, during pharmacologic infusion, or recovery. 4. Nuclear images pending Myocardial perfusion imaging study: Technique: The patient was injected with 10.7 millicuries of technetium 99m Cardiolite and subsequently rest SPECT Cardiolite nuclear imaging was obtained in the horizontal long, vertical long, and short axis views. The patient underwent pharmacologic (Regadenoson) evaluation with a peak heart rate of 120 beats per minute (78% percent predicted maximal heart rate) and a resting blood pressure of 136/84 mmHg and a peak blood pressure of 136/84 mmHg. The patient was injected with 36.0 millicuries of technetium 99m Cardiolite and subsequently stress SPECT Cardiolite nuclear imaging was obtained in the horizontal long, vertical long, and short axis views. A gated Cardiolite study at peak stress was obtained. Interpretation: Rest and stress SPECT Cardiolite nuclear imaging status post realignment, normalization, and attenuation correction demonstrate the appearance of diminished absence of myocardial perfusion/tracer uptake in portions of the basal to mid lateral segments which status post stress appears to be somewhat more prominent. There is diminished end-systolic thickening and brightening in the aforementioned areas. The gated Cardiolite study demonstrates myocardial thickening and inward wall motion. The reported LVEF is 55%. Impression: 1. Rest and stress SPECT current nuclear imaging demonstrate myocardial perfusion changes appearing compatible with an element of previous myocardial injury/infarction involving portions of the basal to mid lateral segments with post-rest myocardial perfusion changes appearing compatible with mild fuentes-infarct related myocardial ischemia. 2. The gated Cardiolite study reports an LVEF of 55%. This note was generated with [employer] software. It may contain incorrect words, spelling, and punctuation that were not noted in checking the note before signing.
== END | disposition home or self-care (01) ==
PROVIDERS: PCP Family Medicine; Visit Provider Physician Assistant Medical
DX: Z01.810 Encounter for preprocedural cardiovascular examination (principal); I48.0 Paroxysmal atrial fibrillation; R07.9 Chest pain, unspecified
CPT/HCPCS: 78452; 93017; 93225; 93226; A9500; A4216; J2785

== ENCOUNTER 2022-12-18 19:46 | Inpatient (IN) | payer MEDICARE, MEDICAID, SELFPAY ==
[2022-12-11 16:18] LABS: Absolute Lymphocyte Count 1.09 X10^3/uL (0.83-4.51); Absolute Neutrophil Count 6.5 X10^3/uL (2.0-7.7); Basophil# 0.03 X10^3/uL; Basophil% 0.3 % (0-1); Eosinophil# 0.31 X10^3/uL; Eosinophils% 3.5 % (0-5); Hematocrit 41.7 % (37-47); Lymphocyte # 1.09 X10^3/ul (0.83-4.51); Lymphocyte % 12.5 % (19-41); Mean Corp Hgb Conc 31.2 g/dL (32-36); Mean Corpuscular Hgb 29.8 pg (27.0-32.0); Mean Corpuscular Volume 95.6 fL (81-99); Monocyte# 0.76 X10^3/uL; Monocyte% 8.7 % (0-10); NRBC Flagged by Analyzer 0 % (0-5); Neutrophil # 6.49 X10^3/uL (2.7-7.7); Neutrophil % 74.3 % (47-70); Platelet Count 218 K/mm3 (150-450); RBC Distribution Width CV 15.7 % (11.6-14.6); RBC Distribution Width SD 54.4 fl (35.1-43.9); Red Blood Count 4.36 M/mm3 (4.2-5.4); White Blood Count 8.7 K/mm3 (4.4-11.0)
[2022-12-11 16:32] LABS: Hemoglobin A1c 8.5 % (3.8-5.6)
[2022-12-11 17:11] LABS: Albumin, Serum 3.3 g/dL (3.2-5.0); Anion Gap 4 (5-15); BUN 21 mg/dL (7-18); BUN/Creat Ratio 17.1 RATIO (10-20); Calcium,Total 9.3 mg/dL (8.5-10.1); Chloride 106 mmol/L (98-107); Creatinine, Serum 1.23 mg/dL (0.55-1.02); EST Glomerular Filtration Rate 46 mL/min (>60); Est Glom Filt Rate - Afr Amer 56 mL/min (>60); Glucose 91 mg/dL (74-106); Potassium 3.7 mmol/L (3.5-5.1); Sodium Level 143 mmol/L (136-145)
--- NOTE | 2022-12-12 16:12 | HP.PCM_ITS ---
History and Physical History and Physical? Patient Name: Tamia Figueroa : 1955 From:? EDDIE SHULTZ PA-C? DATE OF SURGERY:? 12/18/2022 SCHEDULED PROCEDURE:? ?Robotic-assisted conversion left hip to partial hip replacement versus total hip arthroplasty HISTORY OF PRESENT ILLNESS: Preoperative history and physical exam was performed on December 11, 2022.? This is a 67-year-old female who previously fractured her left hip and underwent a left hip cephalo-medullary nail by Dr. Vahid Chowdhury on August 05, 2022.? Patient was initially discharged to an extended care facility postoperatively.? She was discharged 3 weeks after the surgery to hold and never went through physical therapy once discharged.? She did have increased pain and inability to weight- bear.? She states the pain is too much to weight-bear on the left leg.? She did have a fall at home shortly after discharge from the care home facility.? She was initially to undergo surgery at [facility] but this had to be canceled and scheduled for [facility] due to her medical comorbidities.? She also had recent follow-up with the ordnance artificer helper due to past chest pain at her previous preoperative visit with Rafy Gomez PA-C.? Patient has obtain surgical clearance from her ordnance artificer helper Dr. Ramsey.? Patient does currently take Eliquis and they are recommending stopping Eliquis 3 days before surgery but will need to be bridged with Lovenox.? We are reaching out to cardiology with regards to medications and dosage for the Lovenox.? Patient stat es she has this medication at home.? She has medical problems consistent with coronary artery disease, type 2 diabetes mellitus, hypertension, thyroid disease, asthma, atrial fibrillation, gastroesophageal reflux disease, overactive bladder, previous heart attack with heart stent, gout, history of pulmonary embolism after hysterectomy in 1987, dementia, and history of DVT.? Patient also requires 3 L of O2 daily.? 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 Oliveira.? She also reports having a chest x-ray 3 weeks ago.? She currently presents without her O2 and states the Tank is empty.? She has penicillin allergy in which she states she has hives.? She presents today in a wheelchair.? She currently denies any chest pain or shortness of breath.? After failing conservative measures and surgical intervention and discussing with Dr. Vahid Chowdhury, the patient does wish to proceed with a conversion left hip to a partial hip replacement versus total hip arthroplasty.? We are obtaining surgical clearance from the primary care physician as well.? We are going to repeat lab work as she has had poor nutrition markers and elevated A1c. REVIEW OF SYSTEMS: Review Of Systems: Constitutional: Reports anxiety, but denies anorexia, change in appetite, fever and weight change,hard of hearing, and vision problems. Ears Nose Mouth Throat: Reports ringing in the ears. Cardiovasular: Reports chest pain and irregular heartbeat, but denies heart murmur and peripheral vascular disease. Respiratory: Reports asthma, sleep apnea and shortness of breath, but denies cough, pneumonia, tuberculosis and wheezing. Gastrointestinal: Reports constipation, heartburn and rectal itching, but denies diarrhea, nausea, bloody stools and vomiting. Genitourinary: Denies incontinence. Musculoskeletal: Reports leg swelling, pain, trouble walking and weakness? Skin: Denies Raynaud's, history of shingles and tattoo. Neurological: Reports numbness/tingling and tremor. Psychiatric: Reports anxiety, depression, insomnia and stress. Hematologic/Lymphatic: Reports anemia, bleeding/bruising tendency and past transfusion. Reviewed and updated. PAST MEDICAL HISTORY: Advance Care Plan: No Advance Directives Effective Date: 12/27/2014 Past Medical History: Medical Problems: Coronary Artery Disease (CAD), Diabetes, High Blood Pressure, Thyroid Disease, Asthma Cancer - (1987) CERVICAL- CANCER FREE A-Fib, GI Bleed, Hypercholesterolemia, GERD, Overactive Bladder, Osteoporosis, Restless Leg Syndrome, Osteoarthritis, DDD, Heart Attack, Gout, Pulmonary Embolism, Dementia, History Of Blood Clots/ DVT Accidents: Fracture - right ankle ribs lt hip rt shoulder x2 Surgical Hx: Hysterectomy - (1987) Hernia Repair - (1997) Arthroscopy - 1987 & 1989 left knee Excision Of Ganglion Cyst - (1987) RT WRIST Gallbladder - (1975) Tubal Ligation - (1976) Tonsillectomy - (1978) LT Knee Arthroscopy - (01/27/2015) [email or web address] Nasal - (12/2015) Heart Stent Left Hip Cephalomedullary Nail - (08/05/2022) DR. CHOWDHURY @ [facility] Anesthesia Complications: Anesthesia Complications - FELL INTO A DEEP SLEEP Assistive Devices: Dentures, Glasses, Hearing Aid, Oxygen Tank, Wheel Chair, Walker, Cane Reviewed and updated. SOCIAL HISTORY: Social History: Marital: .Occupation: Disabled.Work Status: Disabled - (2005).Hand Dominance: Left-Handed. Personal Habits:? Cigarette Use: Former - (10/2006) 1 pack/day for 25 years .Smokeless Tobacco: Never Used Smokeless Tobacco.E-Cigarette Use: Never used.Alcohol: Denies use.Drug Use: Denies Use.Enjoy Exercising: Never Exercises. Reviewed, no changes. VITALS: Ht: 61.5 Wt: 190lb Wt k.184 BMI: 35.3 BP: 124/70 Pulse: 85 Resp: 14 T: 97.1 T: 36.2C Pain Level: 10 O2SatR: 97 ALLERGIES: PCN Bandaid - Cloth Bandages & Thick Plastic Bandages Cause Blisters Tape - Medical Tape Causes Blisters Cipro Latex Seasonal Amoxicillin Adhesive Tape Orphenadrine Citrate Reglan? MEDICATIONS: Fexofenadine HCL 180 mg 1 PO qdaily, Metoprolol Tartrate 100 mg twice A day, Omeprazole 40 mg 1 PO qdaily, Ascorbic Acid 500 mg daily@1700, Aspir-81 81 mg 1 by mouth every day, Isosorbide Mononitrate ER 120 mg 1 tab PO daily, Metoprolol Tartrate 25 mg 1 by mouth every day, Atorvastatin Calcium 40 mg 1 by mouth every day, Duloxetine HCL 60 mg 1 cap PO bid, Albuterol Mdi 90 mcg/Act 2-3 puffs every 6 hours as needed, Allopurinol 100 mg 1po qday, Eliquis 2.5 mg 1po bid, Buspirone HCL 10 mg 1po tid, Lantus Solostar 100 Unit/ML injects 42 units twice daily, Nitroglycerin 0.4 mg prn chest pain, Vitamin D3 1000 Unit 1po qday, Humalog Kwikpen 200 Unit/ML injects 16 units in the morning 20 units in the evening and then 24 units AT bedtime daily, Enoxaparin Sodium 80 mg/0.8ml injects twice before the surgery, Tylenol Extra Strength 500 mg 2 by mouth every 8 hours prn, Vitamin C 500 mg 1 by mouth every day, Iron 325 (65 Fe) MG 1 PO qdaily PRE-OP EXAM:? General appearance:NORMAL? ? ? Other: Eyes: Conjunctivae and lids: NORMAL? Pupils: ERR Ears, Nose, Mouth, and Throat: NORMAL? Other: Inspection of lips, teeth and gums: NORMAL? ?Other: Neck: Examination of neck: no masses noted. Respiratory: Assessment of respiratory effort: NORMAL? ?Other: ?Auscultation of lungs: clear to auscultation no wheezes, rhonchi or rales. Cardiovascular:? Auscultation of heart: regular rate and rhythm, no murmurs, gallops or rubs. PHYSICAL EXAMINATION: On exam this is a pleasant 67-year-old female who presents today in a wheelchair.? Exam for the hip was limited.? She had increased pain with any motion of the left hip.? She has +1 edema in the lower extremity.? Sensation intact to light touch to bilateral lower extremities. IMAGING STUDIES: Previous x-rays reveal left hip cephalomedullary nail with screw cut out from the femoral head which has changed from previous postoperative x-rays and intraoperative films. IMPRESSION: 1.? Painful left hip with previous cephalo-medullary nail and screw cut out 2.? Coronary artery disease, 3.? Previous heart attack with stent placement 4.? Hypertension 5.? Type 2 diabetes mellitus with last A1c 7.5 6.? Thyroid disease 7.? Asthma 8.? Previous cancer 9.? Atrial fibrillation 10.? Hypercholesterolemia 11.? Gastroesophageal reflux disease 12.? Overactive bladder 13.? Previous history of GI bleed 14 restless leg syndrome 15.? Degenerative disc disease 16.? History of pulmonary embolism 1987 17.? Dementia 18.? Previous history DVT 19.? O2 dependent with 3 L daily PLAN: Dr. Vahid Chowdhury did discuss and review with the patient all treatment options including surgical versus nonsurgical options.? Patient does wish to proceed with the above-stated procedure.? Potential risks, benefits, and complications of the procedure were discussed in detail including but not limited to , infection, nerve and blood vessel damage, persistent pain, numbness, tingling, paresthesias, blood clot, pulmonary embolism, and requirement for possible further surgery.? The patient expressed full understanding and has no further questions for the doctor.? Patient does agree to proceed with the above-stated procedure and has signed the surgery consent form. This dictation was created using voice recognition software. Phonetic and/or grammatical errors may exist. ___? I have re-examined the patient.? There are no clinical changes since date of exam. ___? See progress notes for changes. ___? Dictated on admission Date: ? ? ?Time: Signature:
[2022-12-12 16:16] LABS: Magnesium 2.4 mg/dL (1.6-2.6); Thyroid Stim Hormone (TSH) 3.34 uIU/mL (0.358-3.74)
[2022-12-18] VITALS (15 sets, daily range): BP systolic 103–156; BP diastolic 63–85; PULSE 63–94; RESP 13–17; TEMP 35.6–36.8; O2SAT 96–100; BMI 35.4; BMI 38.1
[2022-12-18] MEDS: Magnesium 1 GM over 15 mins IV (12:20)
[2022-12-18] MEDS: Lactated Ringers 1,000 ML 15 ML IV (12:35)
[2022-12-18] MEDS: Acetaminophen 500 MG Tablet 1000 MG PO ×2 (12:36→22:20)
[2022-12-18] MEDS: Gabapentin 600 MG Tablet PO (12:36)
[2022-12-18] MEDS: Insulin Lispro 100 UNIT/ML INSULN.PEN SC ×2 (12:37→15:54)
[2022-12-18 13:01] LABS: Bedside Glucose 357 mg/dL (74-106)
[2022-12-18] MEDS: Cefazolin 2 GM in 0.9% Normal Saline 100 ML IV (14:08)
[2022-12-18] MEDS: Triamcinolone Acetonide 40 MG/ML Vial OPERA.SITE (14:22)
[2022-12-18] MEDS: Triamcinolone Acetonide 40 MG/ML Vial (14:22)
--- NOTE | 2022-12-18 14:26 | RAD_ITS ---
STUDY: Fluoroscopic- LEFT HIP REASON FOR EXAM: Female, 67 years old. PAIN TECHNIQUE: 6 fluoroscopic views of the hip. COMPARISON: None. FINDINGS: Fluoroscopy time recorded as 89.2 seconds provided by the radiology department. There are 6 fluoroscopic images of the left hip with a left hip open reduction internal fixation in progress. RAD/Hip 1 view with Pelvis IMPRESSION: 89.9 seconds of fluoroscopy time for an orthopedic procedure reduction internal fixation of left femur in progress. Refer to procedure notes for further information. Electronically Signed: Purvi Bradley MD at 15:12 EDT Reading Location ID and State: [facility] / [place] Tel , Service support ,
--- NOTE | 2022-12-18 15:22 | PCM.OPRPT ---
Report of Operation Date of Procedure: 12/18/22 Pre-Operative Diagnosis: Left hip intertrochanteric fracture with screw cut out Left knee osteoarthritis Post-Operative Diagnosis: Left hip intertrochanteric fracture with screw cut out Left knee osteoarthritis Surgery/Procedure Performed:: Revision nail/intertrochanteric hip fixation left hip Left knee intra-articular corticosteroid injection Description of Surgical Findings:: Patient's fracture appears stable. Screw was removed and nail was repositioned a repeat leg screw was placed in a more center center position. Surgeon: Vahid Chowdhury canvas cutter machine: Pancho Jules Type of Anesthesia: Spinal Anesthesiologist: Nick Rosario Special Medications: Ancef Specimen's removed: None Estimated Blood Loss (mL): 50 mL Fluids Replaced: Crystalloid Description of Procedure: On the date of the procedure patient was seen and evaluated in the preoperative area. We again discussed the patient's history. Patient had hip nail in July 2022. She had increasing pain in x-rays and CT scan did show penetration of the anterior femoral head with the screw. Based on this in comparison to the intraoperative x-rays it appeared that there was a small amount of screw cut out. We initially set out to revise the hip to a partial hip replacement however patient has significant medical comorbidities and in her work-up it was felt that the fracture was beginning to heal based on the CT scan results. Taking all this into account we elected to proceed with a repeat nailing of the fracture with a screw in a more center center position. Risk and benefits of the procedure were discussed the patient and the patient wished to proceed. Risk and benefits included but not limited to blood loss, DVTs, PEs, nervous damage infection, the risk of anesthesia, further screw cut out continued pain and progression to a vast necrosis. Patient demonstrated understanding wish to proceed. On date of procedure patient's left hip was marked in the preoperative area. She received spinal anesthesia in the PACU and then was transferred to the room and transferred to the fracture table. Anesthesia assumed control of the C-spine and airway and remained controlled throughout the remainder the procedure. Patient was positioned on the fracture table with the post in place and the leg abducted for an appropriate position. Live x-ray was used to verify position of the extremity and further exemplified healing of the fracture. After adequately positioned the patient appropriately padding all areas the left knee was prepped with alcohol swabs in the lateral suprapatellar portal. After prepping the area with alcohol swabs a timeout was called verifying the side and site of the corticosteroid injection as well as the patient's identity a 22-gauge needle was used to inject 80 mg of Kenalog and 4 cc of Marcaine into the joint. Patient tolerated it well. After this, left lower extremity was prepped in a sterile fashion. Surgeons scrubbed and upon reentering the room the left lower extremity was draped in a standard orthopedic fashion. Timeout was called and everyone agreed upon the side, the site, procedure to be performed, patient's identity and antibiotics given. The proximal incision was made using the previous incision and extending it proximally distally for adequate exposure. We then carefully palpated our finger down to the area of the proximal nail. A guidepin was placed into the proximal nail live x-ray was used to verify the position of the guidepin. Once we are happy with this we slid the extra medullary guide over the guidepin and then placed the proximal fixation screw to fix the extra medullary guide to the nail. Once we are able to engage the screw the nail was engaged in appropriate fashion. We then used the extra medullary guide in order to locate the machine screw and the lag screw. We removed the machine screw. We directed our attention to the distal interlocking screw which was also removed using fluoroscopy to locate the screw and remove it. Once this was removed we were able to rotate the nail and the intramedullary canal maintaining its depth. Using the extra medullary guide we are able to place a more center center guidepin and reposition the leg screw. We measured for a new leg screw and limb leg screw was placed. Machine screw was placed. Once was done live fluoroscopy was used to verify final screw placement. We had an appropriate tip to apex distance. At this time the extra medullary guide was removed from the nail and final x-rays were taken with good visualization. During this time the fracture moved as 1 unit and appeared to show adequate healing. Wounds were copiously irrigated out with normal saline. Deep layers were closed with 0 Vicryl. Skin was closed with 2-0 Vicryl. Following closure was done with janel. Patient was awakened by anesthesia and transferred the PACU for recovery in stable condition. Postop plan: Patient is to resume her Eliquis tomorrow for continued anticoagulation and DVT prophylaxis. Patient can be weightbearing as tolerated. Patient will receive an additional dose of antibiotics before discharge and plan to be discharged home today. We will help the patient to arrange for home health care from our office. Admit VTE Documentation VTE Present on Admission: No VTE Mechan Device Prophylaxis: SCD's and Thigh High KELLIE Hose VTE Pharm Prophylaxis ordered?: Yes
--- NOTE | 2022-12-18 15:45 | RAD_ITS ---
STUDY: X-RAY - PELVIS AND LEFT HIP REASON FOR EXAM: Female, 67 years old. frx -- in PACU TECHNIQUE: 4 views of the pelvis and hip. COMPARISON: August 03, 2022 FINDINGS: There is postoperative change overlying the pelvis with suggestion of prior hernia repair. Normal visualized soft tissue structures. Normal bilateral iliac wings, sacroiliac joints and visualized sacrum. Normal bilateral superior and inferior pubic rami. Normal pubic symphysis. Normal bilateral ischial tuberosities. There is mild narrowing of the right hip joint. There is a visualized recent left hip open reduction internal fixation with 2 orthopedic nails and a long intramedullary kaylan which appears to be in anatomic position and alignment. Extends to the proximal femur. There is postoperative change. It appears to be neutral position. RAD/Hip Min 2 Views (Portable) IMPRESSION: Status post reduction internal fixation of the left proximal femur. It appears to be in anatomic position and alignment. Electronically Signed: Purvi Bradley MD at 15:28 EDT Reading Location ID and State: [facility] / [place] Tel , Service support ,
[2022-12-18] MEDS: Lactated Ringers 1,000 ML 999 ML IV (16:09)
[2022-12-18 16:11] LABS: Bedside Glucose 268 mg/dL (74-106)
[2022-12-18] MEDS: Lactated Ringers 1,000 ML 125 ML IV (17:15)
[2022-12-18] MEDS: oxyCODONE 5 MG Tablet PO (17:55)
[2022-12-18] MEDS: Cefazolin 1 GM/50 ML BAG IV (18:31)
[2022-12-18 21:25] LABS: Bedside Glucose 218 mg/dL (74-106)
[2022-12-19] VITALS (8 sets, daily range): BP systolic 114–141; BP diastolic 69–91; PULSE 68–105; RESP 18; TEMP 36.3–36.9; O2SAT 95–100
[2022-12-19] MEDS: Acetaminophen 500 MG Tablet 1000 MG PO ×3 (05:09→20:20)
[2022-12-19 09:17] LABS: Absolute Lymphocyte Count 0.51 X10^3/uL (0.83-4.51); Absolute Neutrophil Count 7.9 X10^3/uL (2.0-7.7); Basophil# 0.02 X10^3/uL; Basophil% 0.2 % (0-1); Hematocrit 39.8 % (37-47); Hemoglobin 12.3 g/dL (12.0-15.0); Lymphocyte # 0.51 X10^3/ul (0.83-4.51); Lymphocyte % 5.8 % (19-41); Mean Corp Hgb Conc 30.9 g/dL (32-36); Mean Corpuscular Hgb 30.1 pg (27.0-32.0); Mean Corpuscular Volume 97.5 fL (81-99); Mean Platelet Vol. 10.1 fl (6.2-12.0); Monocyte# 0.32 X10^3/uL; Monocyte% 3.7 % (0-10); NRBC Flagged by Analyzer 0 % (0-5); Neutrophil # 7.85 X10^3/uL (2.7-7.7); Neutrophil % 89.8 % (47-70); POSITIVE DIFFERENTIAL YES; Platelet Count 165 K/mm3 (150-450); RBC Distribution Width CV 15.1 % (11.6-14.6); RBC Distribution Width SD 54.2 fl (35.1-43.9); Red Blood Count 4.08 M/mm3 (4.2-5.4); White Blood Count 8.7 K/mm3 (4.4-11.0)
[2022-12-19 09:20] LABS: Differential Indicated SCAN CRITERIA MET
[2022-12-19 09:41] LABS: BUN 19 mg/dL (7-18); Creatinine, Serum 1.23 mg/dL (0.55-1.02); EST Glomerular Filtration Rate 46 mL/min (>60); Estimated Creatinine Clearance 33.49 ml/min; Glucose 266 mg/dL (74-106)
[2022-12-19 09:42] LABS: Anion Gap 2 (5-15); BUN/Creat Ratio 15.4 RATIO (10-20); Chloride 107 mmol/L (98-107); Est Glom Filt Rate - Afr Amer 56 mL/min (>60); Potassium 4.7 mmol/L (3.5-5.1); Sodium Level 138 mmol/L (136-145)
--- NOTE | 2022-12-19 10:03 | PN.ORTHO_ITS ---
Subjective Subjective The patient was sitting in bedside chair sleeping upon examination. Patient's oxygen tubing was around her eyes. Patient denies any chest pain, shortness of breath, dizziness, lightheadedness, nausea or vomiting, or calf pain. Pain is controlled on medications. No adverse overnight events. Patient was supposed to go home yesterday but due to inability to get up with weakness and two-person assist patient stayed overnight. She does live home alone and is concerned about moving. She does have family at home. She was initially to undergo removal of cephalomedullary nail with hemiarthroplasty versus total hip arthroplasty. However due to patient's preoperative work-up and comorbidities patient is not healthy enough to undergo that procedure. Dr. Vahid Chowdhury opted to proceed with revision nail/intertrochanteric hip fixation. Objective Data Objective Data Vital Signs: Vital Signs Temp Pulse Resp BP Pulse Ox O2 Del Method O2 Flow Rate 98.1 F 95 18 114/91 H 98 Nasal Cannula 3 12/19/22 09:56 12/19/22 09:56 12/19/22 09:56 12/19/22 09:56 12/19/22 09:56 12/19/22 09:56 12/19/22 09:56 Oxygen Flow Rate (L/min) 3 Oxygen Delivery Method Nasal Cannula Weight: 91.626 kg Body Mass Index (BMI) 38.1 Intake & Output: Intake and Output for Last 24 Hours 12/17/22 12/18/22 12/19/22 23:59 23:59 23:59 Intake Total 1663.25 / 1663.25 1300 / 1300 Balance 1663.25 / 1663.25 1300 / 1300 Lab / Micro Data Result Diagrams: 12/19/22 09:08 12/19/22 09:08 Labs: Laboratory Results - last 24 hr 12/18/22 12:25: POC Glucose 357 H 12/18/22 15:53: POC Glucose 268 H 12/18/22 20:58: POC Glucose 218 H 12/19/22 09:08: WBC 8.7, RBC 4.08 L, Hgb 12.3, Hct 39.8, MCV 97.5, MCH 30.1, MCHC 30.9 L, RDW Std Deviation 54.2 H, RDW Coeff of Aubrey 15.1 H, Plt Count 165, MPV 10.1, Immature Gran % (Auto) 0.500, Neut % (Auto) 89.8 H, Lymph % (Auto) 5.8 L, Prowers % (Auto) 3.7, Eos % (Auto) 0.0, Baso % (Auto) 0.2, Absolute Neuts (auto) 7.9 H, Absolute Lymphs (auto) 0.51 L, Nucleated RBC % 0 12/19/22 09:08: Sodium 138, Potassium 4.7, Chloride 107, Carbon Dioxide 29.0, Anion Gap 2 L, BUN 19 H, Creatinine 1.23 H, Estim Creat Clear Calc 33.49, Est GFR (MDRD) Af Amer 56 L, Est GFR (MDRD) Non-Af 46 L, BUN/Creatinine Ratio 15.4, Glucose 266 H, Calcium 9.0 Micro: Microbiology 12/11/22 15:48 Swab (Method) Nasal Screen MRSA/MSSA - Final Physical Exam Narrative Vital signs stable and afebrile. Patient has had 1 reading with tachycardia but denies any chest pain, shortness of breath or palpitations. SCDs and KELLIE hose are in place bilaterally Patient is able to plantarflex and dorsiflex actively. Sensation is intact to light touch to saphenous, sural, superficial and deep per teague, and tibial distribution. Dressings are clean dry and intact. Negative Homans bilaterally, negative signs and symptoms of DVT. Const alert, oriented x3 and no apparent distress Assessment & Plan Assessment/Plan (1) Closed intertrochanteric fracture of left femur: QUALIFIERS: Encounter type: initial encounter Fracture alignment: nondisplaced Qualified Code(s): S72.145A - Nondisplaced intertrochanteric fracture of left femur, initial encounter for closed fracture PLAN: 1. S/P revision nail/intertrochanteric hip fixation left hip POD #1 2. Continue Pain Medications: Tylenol and oxycodone 3. DVT Prophylaxis: Patient has been resumed on her Eliquis which she takes from cardiology. She was bridged preoperatively with Lovenox. Case was discussed with Vahid Chowdhury. 4. PT/OT: Weightbearing as tolerated with walker. Patient was a 2 person assist yesterday and we do need physical therapy assessment for appropriate discharge planning. 5. H & H: Lab work orders were placed this morning, asymptomatic. 6. Consult for social work/case management: Appreciate recommendations with regards to safe and appropriate discharge planning 7. Consultation was placed for medicine due to patient's significant comorbidities 8. Encouraged Incentive Spirometry 9. Disposition: Patient is adamant that she goes home however I tried having a discussion with her about safe and appropriate discharge planning. I am fearful of patient falling and sustaining another injury or fracture. She was required 2 person assist yesterday. We are having physical therapy assess for their d ischarge planning. Case management is also on board for discharge planning. Patient could benefit from skilled care to continue to focus on strength and mobility. Patient was to be an outpatient procedure yesterday and Dr. Vahid Chowdhury has already sent in patient's narcotic postoperatively. She will resume her Eliquis today. Orders for home medications were placed this morning. Consultations were also placed this morning. Case was also discussed with Vahid Chowdhury. I have reviewed the [place] Automated Rx Reporting System (OARRS) report for this patient for refill pattern and other prescriber involvement as part of the appropriate surveillance for the provision of acute and chronic controlled medications. The report was requested and reviewed on the date of this entry and was considered in the prescribing process. This dictation was created using voice recognition software. Phonetic and/or grammatical errors may exist.
[2022-12-19] MEDS: Glucerna Shake 120 ML LIQUID PO ×2 (10:13→11:56)
[2022-12-19] MEDS: Potassium Chloride Oral Tablet 10 MEQ PO (10:16)
[2022-12-19] MEDS: Levothyroxine 100 MCG Tablet PO (10:16)
[2022-12-19] MEDS: Pantoprazole Sodium 40 MG Tablet PO (10:16)
[2022-12-19] MEDS: Allopurinol 100 MG Tablet PO (10:16)
[2022-12-19] MEDS: amLODIPine 5 MG Tablet PO (10:17)
[2022-12-19] MEDS: Furosemide 20 MG Tablet PO ×2 (10:17→17:11)
[2022-12-19] MEDS: Metoprolol Tartrate 100 MG Tablet PO ×2 (10:17→20:20)
[2022-12-19] MEDS: APIXABAN 2.5 MG TABLET (WCH) PO ×2 (10:17→20:20)
[2022-12-19] MEDS: Ferrous Sulfate 325 MG Tablet PO (10:17)
[2022-12-19] MEDS: Loratadine 10 MG Tablet PO (10:17)
[2022-12-19] MEDS: busPIRone 5 MG Tablet 10 MG PO ×2 (10:17→20:20)
[2022-12-19] MEDS: Cholecalciferol (VIT D3) 25 MCG TABLET (1,000 UNITS) 50 MCG PO (10:18)
[2022-12-19] MEDS: Insulin Glargine-YFGN 100 UNIT/ML Pen 42 UNIT SC ×2 (10:19→20:20)
[2022-12-19 10:33] LABS: Differential Comment SCANNED
[2022-12-19] MEDS: Insulin Lispro 100 UNIT/ML INSULN.PEN 20 UNIT SC (11:56)
[2022-12-19 12:21] LABS: Bedside Glucose 372 mg/dL (74-106)
--- NOTE | 2022-12-19 13:20 | CASEMGMT ---
Addendum entered by Mohit Willams 12/19/22 16:45: Responses received from [facility] and [facility] via [employer] that they are unable to accept pt. No response from [facility] or [facility] as of yet. TOM ROCHA did speak w/Jim @ [facility] earlier today who stated she does not think they have staffing w/PT in [facility] at this time, but stated would look into it. TOM ROCHA did call her back a couple hours after referral sent via [employer] w/no answer. VM left asking for her to return call. Referral also faxed to [facility]. Call placed to [facility] re: referral, as this RN CM unsure if they use [employer]. No answer. CM to continue to work on finding an accepting [facility] agency tomorrow. Original Note: RN?CM?WAREHOUSE ASSEMBLY WORKER?CM?to room to meet with patient for initial transition planning/care coordination?assessment.?RN?CM?introduced self and role at [facility].? Pt voices understanding and consents to?assessment?at this time.? Pt sitting up in bed, getting ready to eat lunch. Pt is A/O at this time and answers all questions appropriately.?? Care providers, pharmacy, and demographics verified/updated at this time. PCP: Dr Oliveira Specialists: Dr Chowdhury-ortho. Dr Blas-cardiology Preferred Pharmacy: [facility] Insurance: [facility] Dual Prescription Benefit: yes Living Will/HPOA: none LNOK: 2 daughters, 3 sons Living Arrangements: Patient states she lives with her son in a first floor apartment with 1 step to enter. Pt states she manages her own medications and appts. has a girl, Mckenna Velázquez, who stays w/her sometimes and can assist with everything if needed. Has CM, Sabrina, through [facility] and has aides that assist w/bathing/dressing, walking her dog, and all home mgmt tasks. Transportation: son can assist if his car is working. Otherwise, a friend provides most transportation. DME: Pt states she has shower chair, raised toilet seat, lift chair, grab bars, walker, medical alert button, nebulizer, [employer] Kira CGM w/all needed supplies and insulin, pulse ox, and home oxygen concentrator with portability at 3lpm through [facility]. Call placed to [facility] and spoke w/Wade, who states pt's current O2 orders are 2 L/M continuously. Pt states she has a W/C @ her home that she has not started using yet d/t cost and plans to return it to the DME co. SNF/HHC: Patient states she has previously been to [facility] and [facility] and has had HHC in the past. Per [facility], they received a referral for pt from PCP, but state they are not in-network w/pt's insurance. Pt made aware. She denies having preference of another [facility] agency and states as long as my insurance will cover it. [facility] the [facility]: [facility], [facility], [facility], and [facility]. Awaiting responses. Pt wishes to return home and states has no concerns with going home at time of discharge.? She is aware therapy is recommending SNF, but she is adamant she does not want to go to a SNF and she is going home. She states she has already spoken w/Mckenna Velázquez, who states she can stay w/her when she returns home and can help take care of her and states her son can assist as well. Therapy in room getting ready to work w/pt again today. CM?to follow for any increase in home oxygen needs and any further discharge planning/needs.? Pt voices no further concerns/needs at this time.? Advised pt to ask for?CM?if any further questions/concerns/needs arise.? Voices understanding. PLAN:??Home w/HHC. Awaiting responses/acceptance. Sulaiman ESTESN?RN?CM
--- NOTE | 2022-12-19 13:53 | CASEMGMT ---
Social Work Pt has services through [facility]. Dental Equipment Technician is [employer], pt has emergency response system, [employer] every 2 weeks, and a home health aid through [facility] - 26 hours per week. SW will updated [employer] with discharge plan. SRINATH Pope
[2022-12-19] MEDS: Aspirin E.C. 81 MG Tablet PO (17:10)
[2022-12-19] MEDS: Insulin Lispro 100 UNIT/ML INSULN.PEN 24 UNIT SC (17:11)
[2022-12-19] MEDS: Ascorbic Acid 500 MG Tablet PO (17:11)
[2022-12-19 17:36] LABS: Bedside Glucose 386 mg/dL (74-106)
--- NOTE | 2022-12-19 19:29 | PN.HOSP_ITS ---
Reason for Visit Reason for Visit: Diagnoses Displaced intertrochanteric fracture of left femur, initial encounter for closed fracture (12/18/22) Nondisplaced intertrochanteric fracture of left femur, initial encounter for c losed fracture (12/18/22) Encounter for other preprocedural examination (12/18/22) Subjective Subjective Patient was seen and examined today at the request of orthopedic surgery, she underwent revision of an intertrochanteric hip fixation left hip yesterday. Patient has multiple medical problems including type 2 diabetes, essential hypertension, hypothyroidism, coronary artery disease, and paroxysmal atrial fibrillation. At the time my examination, patient was not complaining of any postop pain. She had no complaints of any fever, chills, shortness of breath, or chest pain. Objective Data Objective Data Vital Signs: Vital Signs Temp Pulse Resp BP Pulse Ox O2 Del Method O2 Flow Rate 98.1 F 68 18 116/79 95 Nasal Cannula 3 12/19/22 14:51 12/19/22 14:51 12/19/22 14:51 12/19/22 14:51 12/19/22 14:51 12/19/22 14:51 12/19/22 14:51 Oxygen Flow Rate (L/min) 3 Oxygen Delivery Method Nasal Cannula Weight: 91.626 kg Body Mass Index (BMI) 38.1 Intake & Output: Intake and Output for Last 24 Hours 12/17/22 12/18/22 12/19/22 23:59 23:59 23:59 Intake Total 1663.25 / 1663.25 1300 / 1300 Balance 1663.25 / 1663.25 1300 / 1300 Lab / Micro Data Result Diagrams: 12/19/22 09:08 12/19/22 09:08 Labs: Laboratory Results - last 24 hr 12/18/22 20:58: POC Glucose 218 H 12/19/22 09:08: WBC 8.7, RBC 4.08 L, Hgb 12.3, Hct 39.8, MCV 97.5, MCH 30.1, MCHC 30.9 L, RDW Std Deviation 54.2 H, RDW Coeff of Aubrey 15.1 H, Plt Count 165, MPV 10.1, Immature Gran % (Auto) 0.500, Neut % (Auto) 89.8 H, Lymph % (Auto) 5.8 L, Trimble % (Auto) 3.7, Eos % (Auto) 0.0, Baso % (Auto) 0.2, Absolute Neuts (auto) 7.9 H, Absolute Lymphs (auto) 0.51 L, Nucleated RBC % 0, Differential Comment SC ANNED 12/19/22 09:08: Sodium 138, Potassium 4.7, Chloride 107, Carbon Dioxide 29.0, Anion Gap 2 L, BUN 19 H, Creatinine 1.23 H, Estim Creat Clear Calc 33.49, Est GFR (MDRD) Af Amer 56 L, Est GFR (MDRD) Non-Af 46 L, BUN/Creatinine Ratio 15.4, Glucose 266 H, Calcium 9.0 12/19/22 11:54: POC Glucose 372 H 12/19/22 17:08: POC Glucose 386 H Micro: Microbiology 12/11/22 15:48 Swab (Method) Nasal Screen MRSA/MSSA - Final Radiography Diagnostic Testing: Radiology Impression Hip/Pelvis X-Ray 12/18/22 14:26 IMPRESSION: 89.9 seconds of fluoroscopy time for an orthopedic procedure reduction internal fixation of left femur in progress. Refer to procedure notes for further information. Electronically Signed: Purvi Bradley MD at 15:12 EDT , Hip X-Ray 12/18/22 15:45 IMPRESSION: Status post reduction internal fixation of the left proximal femur. It appears to be in anatomic position and alignment. Electronically Signed: Purvi Bradley MD at 15:28 EDT , Physical Exam Const alert, oriented x3, no apparent distress and average body habitus General Appearance: cooperative, well kempt and well developed Orientation / Consciousness: awake, oriented to person, oriented to place and oriented to time HEENT normocephalic, head/scalp atraumatic and moist oral mucous membranes Eyes PERRL, EOMs intact bilaterally and conjunctivae normal Neck supple, no JVD, thyroid normal and no carotid bruits General: trachea midline Resp normal respiratory effort, no retractions, no use of accessory muscles and clear to auscultation bilaterally Auscultation: Negative for rales, rhonchi or wheezes Cardio regular rate, regular rhythm, S1 normal heart sound, S2 normal heart sound, no murmurs, no rub and no gallops GI normal to inspection, nondistended, normoactive bowel sounds, soft to palpation, non-tender and non-distended Neuro oriented x3, CN's II-XII intact bilaterally, no focal motor deficits and no sensory deficits noted Sensorium / Orientation: awake and alert Speech: speech normal Psych affect normal Assessment & Plan Assessment/Plan (1) Diabetes mellitus type 2 in obese: PLAN: Plan 1. Type 2 diabetes-patient's blood sugars will be monitored, sliding scale insulin will be administered as needed, patient is on basal insulin and lispro insulin with meals #2 essential hypertension-patient will remain on her present medications #3 hyperlipidemia-patient is on atorvastatin #4 chronic depression-patient is on Cymbalta #5 hypothyroidism-patient is on levothyroxine #6 paroxysmal atrial fibrillation-patient is on Eliquis #7 status post revision of intertrochanteric hip fixation left hip-postop day #1, PT and OT are seeing patient Total clinical time spent by myself addressing the patient's medical issues, reviewing all of her data, and collaborating with the patient's care team: 35 minutes Charges/Coding Visit Charges Inpatient E&M: 77010 Subs Hosp L2
[2022-12-19] MEDS: Atorvastatin Calcium 40 MG Tablet PO (20:20)
[2022-12-19] MEDS: busPIRone 15 MG TABLET PO (20:20)
[2022-12-19 21:25] LABS: Bedside Glucose 372 mg/dL (74-106)
[2022-12-20 03:00] VITALS: BP 141/85; PULSE 102; RESP 18; TEMP 36.6; O2SAT 100
--- NOTE | 2022-12-20 05:40 | NURSING ---
Blood sugars have noted to be elevated. this RN found candy bars in pts bedsheets. pts BG was 442 this AM. pt educated on not eating outside food due to raising blood glucose levels. pt states i am sorry. Dr Clay notified of BG level and new orders for 8u humalog given.
[2022-12-20] MEDS: Levothyroxine 100 MCG Tablet PO (05:41)
[2022-12-20] MEDS: Acetaminophen 500 MG Tablet 1000 MG PO ×2 (05:41→13:21)
[2022-12-20] MEDS: Insulin Lispro 100 UNIT/ML INSULN.PEN 8 UNIT SC (06:17)
[2022-12-20 06:26] LABS: Bedside Glucose 442 mg/dL (74-106)
--- NOTE | 2022-12-20 06:41 | PN.ORTHO_ITS ---
Subjective Subjective The patient was sitting in bed sleeping upon examination. Patient denies any chest pain, shortness of breath, dizziness, lightheadedness, nausea or vomiting, or calf pain. Pain is controlled on medications. No adverse overnight events. Patient has started to have some confusion of where she is at this morning. Discussed with nurse and states this started around 3 AM. She is alert and oriented to name date of and why she is in the hospital but does not know where she is at. Pain in the left hip has been controlled on medications. Case management has been involved with appropriate discharge planning. Physical therapy is recommending penitentiary facility however patient is refusing. They are working on home health. Nursing states patient continues to eat outside food including candy bars. Her blood sugars have been elevated. Objective Data Objective Data Vital Signs: Vital Signs Temp Pulse Resp BP Pulse Ox O2 Del Method O2 Flow Rate 97.9 F 102 H 18 141/85 H 100 Nasal Cannula 3 12/20/22 03:00 12/20/22 03:00 12/20/22 03:00 12/20/22 03:00 12/20/22 03:00 12/20/22 03:00 12/20/22 03:00 Oxygen Flow Rate (L/min) 3 Oxygen Delivery Method Nasal Cannula Weight: 91.626 kg Body Mass Index (BMI) 38.1 Intake & Output: Intake and Output for Last 24 Hours 12/18/22 12/19/22 12/20/22 23:59 23:59 23:59 Intake Total 1663.25 / 1663.25 1300 / 1300 Balance 1663.25 / 1663.25 1300 / 1300 Lab / Micro Data Result Diagrams: 12/19/22 09:08 12/19/22 09:08 Labs: Laboratory Results - last 24 hr 12/19/22 09:08: WBC 8.7, RBC 4.08 L, Hgb 12.3, Hct 39.8, MCV 97.5, MCH 30.1, MCHC 30.9 L, RDW Std Deviation 54.2 H, RDW Coeff of Aubrey 15.1 H, Plt Count 165, MPV 10.1, Immature Gran % (Auto) 0.500, Neut % (Auto) 89.8 H, Lymph % (Auto) 5.8 L, Emmet % (Auto) 3.7, Eos % (Auto) 0.0, Baso % (Auto) 0.2, Absolute Neuts (auto) 7.9 H, Absolute Lymphs (auto) 0.51 L, Nucleated RBC % 0, Differential Comment SCANNED 12/19/22 09:08: Sodium 138, Potassium 4.7, Chloride 107, Carbon Dioxide 29.0, Anion Gap 2 L, BUN 19 H, Creatinine 1.23 H, Estim Creat Clear Calc 33.49, Est GFR (MDRD) Af Amer 56 L, Est GFR (MDRD) Non-Af 46 L, BUN/Creatinine Ratio 15.4, Glucose 266 H, Calcium 9.0 12/19/22 11:54: POC Glucose 372 H 12/19/22 17:08: POC Glucose 386 H 12/19/22 20:16: POC Glucose 372 H 12/20/22 05:36: POC Glucose 442 H Micro: Microbiology 12/11/22 15:48 Swab (Method) Nasal Screen MRSA/MSSA - Final Radiography Diagnostic Testing: Radiology Impression Hip/Pelvis X-Ray 12/18/22 14:26 IMPRESSION: 89.9 seconds of fluoroscopy time for an orthopedic procedure reduction internal fixation of left femur in progress. Refer to procedure notes for further information. Electronically Signed: Purvi Bradley MD at 15:12 EDT Reading Location ID and State: [facility] / [place] Tel , Service support , Hip X-Ray 12/18/22 15:45 IMPRESSION: Status post reduction internal fixation of the left proximal femur. It appears to be in anatomic position and alignment. Electronically Signed: Purvi Bradley MD at 15:28 EDT , Physical Exam Narrative Vital signs stable and afebrile. Patient has had some mild tachycardia but denies any chest pain or shortness of breath. SCDs and KELLIE hose are in place bilaterally Patient is able to plantarflex and dorsiflex actively. Sensation is intact to light touch to saphenous, sural, superficial and deep peroneal, and tibial distribution. Dressings are clean dry and intact. Negative Homans bilaterally, negative signs and symptoms of DVT. Const alert, oriented x3 and no apparent distress Assessment & Plan Assessment/Plan (1) Closed intertrochanteric fracture of left femur: QUALIFIERS: Encounter type: initial encounter Fracture alignment: nondisplaced Qualified Code(s): S72.145A - Nondisplaced intertrochanteric fracture of left femur, initial encounter for closed fracture PLAN: 1. S/P revision nail/intertrochanteric hip fixation left hip POD #2 2. Continue Pain Medications: Tylenol and oxycodone 3. DVT Prophylaxis: Patient has been resumed on her Eliquis which she takes from cardiology. She was bridged preoperatively with Lovenox. Case was discussed with Vahid Chowdhury. 4. PT/OT: Weightbearing as tolerated with walker. Patient was a 2 person assist yesterday and we do need physical therapy assessment for appropriate discharge planning. 5. H & H: CBC and BMP was ordered this morning. 6. Consult for social work/case management: Appreciate recommendations with regards to safe and appropriate discharge planning 7. Continue postoperative medical management per medicine 8. Encouraged Incentive Spirometry 9. Disposition: Physical therapy has recommended penitentiary facility however patient is refusing. Case management currently on board and looking at home health. Patient is adamant that she goes home and she does have assistance from family. I again recommended to the patient going to penitentiary facility and encouraged this. Explained to her she has a fall risk and has to have appropriate help. Again she is refusing penitentiary facility. We will check back in later today with case management with regards to discharge planning. Continue pain medication as needed. I have reviewed the [place] Automated Rx Reporting System (OARRS) report for this patient for refill pattern and other prescriber involvement as part of the appropriate surveillance for the provision of acute and chronic controlled medications. The report was requested and reviewed on the date of this entry and was considered in the prescribing process. This dictation was created using voice recognition software. Phonetic and/or grammatical errors may exist.
--- NOTE | 2022-12-20 06:47 | DCINST_ITS ---
Discharge Instructions Diet Discharge Diet: No restrictions Activity Discharge Activity: May Not Drive (while taking narcotic pain medications.) May shower in (days): 1 (only if incision is dry and without drainage. Do NOT soak/submerge in tub/pool/mike/stream/hot tub.)) Ice area for (Minutes): 20 (Every 1-2 hours while [address] barrier between ice and skin.) Weight Bearing Status: Weight bearing as tolerated (With walker) Keep extremity elevated above heart level: Operative Extremity Additional Activity Instructions:: Follow [facility] Post-op Instructions. Once postoperative dressing has been removed only use gentle soap and water over the incision. Do not use any ointments, Neosporin, salves, alcohol pads over the incision for 6 weeks postoperatively. Do not submerge underwater for 6 weeks postoperatively. Wear elastic stockings for 2 weeks. Do NOT use alcohol with narcotic pain medication. Do NOT make important decisions while taking narcotic medication. If you have problems with taking your medication (rash, itching, nausea, etc.) call the office at once. Dressing / Incision Call your doctor if your incision/area has: Continuous Slow Oozing, Sudden Increased Bleeding, Increased Pain/ Swelling, Increased Redness and Foul Smelling Discharge Call your doctor if you observe: Fever of 101 or Higher, Shortness of breath, Chest pain, Calf discomfort and Uncontrolled pain Remove Dressing in: 3 days (Okay to remove dressings on December 23, 2022) Additional Dressing/Incision Instructions:: Follow [facility] Post-op Instructions. Once postoperative dressing has been removed, only use gentle soap and water over the incision. Do not use any ointments, Neosporin, salves, alcohol pads over the incision for 6 weeks postoperatively. Do not submerge underwater for 6 weeks postoperatively. Continue with KELLIE hose/elastic stockings for 2 weeks postoperatively. May remove at nighttime but needs to be placed back on the leg during the day. Do NOT use alcohol with narcotic pain medication. Do NOT make important decisions while taking narcotic medication. If you have problems with taking your medication (rash, itching, nausea, etc.) call the office at once. Follow Up Care Test Results: Test results from this visit will be discussed in further detail at your follow- up appointment, if applicable. Discharge Plan Admission Admit Date/Time: 12/18/22 19:46 Attending Provider: Vahid Chowdhury Primary Care Provider: Bhupendra Oliveira Consulting Providers: Pancho Jules ; Yared Fernández Discharge Orders/Prescriptions Prescriptions: New acetaminophen 500 mg Tablet 1,000 mg PO Q8 Qty: 0 0RF oxycodone 5 mg Tablet 5 - 10 mg PO Q4H PRN PRN (Reason: Pain Score 4-10/10) 5 Days Qty: 60 0RF Continued potassium chloride 10 mEq tablet extended release 10 meq PO DAILY Hold Instructions: until lasix restarted allopurinol 100 mg tablet 100 mg PO DAILY buspirone 10 mg tablet 10 mg PO TID Rx Instructions: 10mg bid and 15mg QS Saline Mist 0.65 % aerosol,spray 2 spray intranasal DAILY atorvastatin 40 MG tablet 40 mg PO QHS Label Comments: cholesterol levothyroxine 100 MCG tablet 100 mcg PO DAILY Label Comments: thyroid duloxetine 60 mg capsule,delayed release(DR/EC) 60 mg PO DAILY Label Comments: mental health ascorbic acid (vitamin C) 500 MG tablet 500 mg PO DAILY@1700 Label Comments: Supplement aspirin 81 MG tablet 81 mg PO DAILY@1700 Label Comments: STOP 5 DAYS PRIOR TO OR fexofenadine 180 mg tablet 180 mg PO DAILY omeprazole 40 MG capsule,delayed release(DR/EC) 40 mg PO DAILY furosemide 20 MG tablet 20 mg PO BID Hold Instructions: hold until BP will allow reinitiation cholecalciferol (vitamin D3) 50 MCG capsule 2,000 unit PO DAILY insulin glargine [Lantus Solostar U-100 Insulin] 100 unit/mL (3 mL) insulin pen 42 unit SC BID insulin lispro 100 unit/mL insulin pen 16 unit SC BREAKFAST insulin lispro 100 unit/mL insulin pen 20 unit SC LUNCH insulin lispro 100 unit/mL insulin pen 24 unit SC DINNER ferrous sulfate 325 mg (65 mg iron) Tablet 325 mg PO DAILY amlodipine 5 mg tablet 5 mg PO DAILY isosorbide mononitrate 120 mg tablet extended release 24 hr 120 mg PO DAILY albuterol sulfate 90 mcg/actuation HFA aerosol inhaler 1 - 2 puff INHALATION PRN PRN (Reason: COPD) metoprolol tartrate 100 mg tablet 100 mg PO BID Qty: 30 11RF nitroglycerin 0.4 mg tablet, sublingual 0.4 mg sublingual Q5-15M PRN (Reason: chest pain) Qty: 25 3RF apixaban 2.5 mg tablet 2.5 mg PO BID Label Comments: .Blood thinner- LAST DOSE 3-4 DAYS PRIOR, PT HAS WRITTEN ON PAPER Discontinued enoxaparin [Lovenox] 80 mg/0.8 mL syringe 80 mg subcut Q12H Rx Instructions: Patient being bridged for upcoming surgery Referrals / Follow Up: Bhupendra Oliveira MD [Primary Care Provider] - 12/23/22 2:20 pm Pancho Jules PA-C [Med Staff - Adv Practice Prof] - 01/02/23 3:15 pm Disposition Disposition (needs filled in before D/C Order can be placed): Home Health Service
[2022-12-20 08:12] LABS: Hematocrit 36.2 % (37-47); Hemoglobin 11.4 g/dL (12.0-15.0); Mean Corp Hgb Conc 31.5 g/dL (32-36); Mean Corpuscular Hgb 30.2 pg (27.0-32.0); Mean Corpuscular Volume 95.8 fL (81-99); Mean Platelet Vol. 10.4 fl (6.2-12.0); Platelet Count 177 K/mm3 (150-450); RBC Distribution Width CV 15.3 % (11.6-14.6); RBC Distribution Width SD 52.8 fl (35.1-43.9); Red Blood Count 3.78 M/mm3 (4.2-5.4); White Blood Count 9.4 K/mm3 (4.4-11.0)
[2022-12-20 08:28] VITALS: O2SAT 95
[2022-12-20 08:36] LABS: Anion Gap 3 (5-15); BUN 34 mg/dL (7-18); BUN/Creat Ratio 21.4 RATIO (10-20); Chloride 104 mmol/L (98-107); Creatinine, Serum 1.59 mg/dL (0.55-1.02); EST Glomerular Filtration Rate 34 mL/min (>60); Est Glom Filt Rate - Afr Amer 42 mL/min (>60); Estimated Creatinine Clearance 25.91 ml/min; Glucose 447 mg/dL (74-106); Potassium 4.7 mmol/L (3.5-5.1); Sodium Level 137 mmol/L (136-145)
[2022-12-20] MEDS: Pantoprazole Sodium 40 MG Tablet PO (08:50)
[2022-12-20] MEDS: Insulin Glargine-YFGN 100 UNIT/ML Pen 42 UNIT SC (08:51)
[2022-12-20] MEDS: Ferrous Sulfate 325 MG Tablet PO (08:51)
[2022-12-20] MEDS: Allopurinol 100 MG Tablet PO (08:52)
[2022-12-20] MEDS: Potassium Chloride Oral Tablet 10 MEQ PO (08:52)
[2022-12-20] MEDS: busPIRone 5 MG Tablet 10 MG PO (08:52)
[2022-12-20] MEDS: Furosemide 20 MG Tablet PO (08:52)
[2022-12-20 08:53] VITALS: PULSE 76
[2022-12-20] MEDS: Cholecalciferol (VIT D3) 25 MCG TABLET (1,000 UNITS) 50 MCG PO (08:53)
[2022-12-20] MEDS: amLODIPine 5 MG Tablet PO (08:53)
[2022-12-20] MEDS: Loratadine 10 MG Tablet PO (08:53)
[2022-12-20] MEDS: APIXABAN 2.5 MG TABLET (WCH) PO (08:53)
[2022-12-20] MEDS: Metoprolol Tartrate 100 MG Tablet PO (08:53)
[2022-12-20 09:00] VITALS: BP 122/92; PULSE 72; RESP 18; TEMP 36.8; O2SAT 99
[2022-12-20] MEDS: Insulin Lispro 100 UNIT/ML INSULN.PEN 16 UNIT SC (09:00)
--- NOTE | 2022-12-20 09:25 | CASEMGMT ---
TOM ROCHA NOTE: VM received from Jim @ [facility] stating they are able to accept pt. Jim requesting to be notified of discharge date. Soo, MS3 RN JOSEFINA, made aware. Sulaiman PACHECO RN CM
[2022-12-20 09:26] VITALS: O2SAT 97
[2022-12-20 12:51] LABS: Bedside Glucose 302 mg/dL (74-106)
--- NOTE | 2022-12-20 12:51 | CASEMGMT ---
Addendum entered by Soo Ness 12/20/22 13:10: TC to 's office, made a follow up appt per request of for Saturday 12/23 at 2:20pm. RN CM into pt room, pt is aware of follow up appt and that it is on her dc instructions as well as acceptance by [facility]. Pt denies further questions at this time. Original Note: TC to Jim at [facility], they are able to accept pt for SOC on Friday.
[2022-12-20] MEDS: Insulin Lispro 100 UNIT/ML INSULN.PEN 20 UNIT SC (13:19)
--- NOTE | 2022-12-20 14:18 | CASEMGMT ---
Social Work Discharge instructions and information faxed to [facility] [employer] Arizmendi. SRINATH Pope
--- NOTE | 2022-12-20 15:42 | PN.HOSP_ITS ---
Reason for Visit Reason for Visit: Diagnoses Type 2 diabetes mellitus without complications (12/18/22) Obesity, unspecified (12/18/22) Displaced intertrochanteric fracture of left femur, initial encounter for closed fracture (12/18/22) Nondisplaced intertrochanteric fracture of left femur, initial encounter for closed fracture (12/18/22) Encounter for other preprocedural examination (12/18/22) Subjective Subjective Patient was seen and examined today, she told this examiner that she was going home today, orthopedic surgery came in today to talk with the patient about possibly going to an extended care facility but it appears that instead the patient will be going home with home health. Patient appears medically stable at this time. Objective Data Objective Data Vital Signs: Vital Signs Temp Pulse Resp BP Pulse Ox O2 Del Method O2 Flow Rate 98.3 F 72 18 122/92 H 97 Nasal Cannula 3 12/20/22 09:00 12/20/22 09:00 12/20/22 09:00 12/20/22 09:00 12/20/22 09:26 12/20/22 09:00 12/20/22 09:26 Oxygen Flow Rate (L/min) 3 Oxygen Delivery Method Nasal Cannula Weight: 91.626 kg Body Mass Index (BMI) 38.1 Intake & Output: Intake and Output for Last 24 Hours 12/18/22 12/19/22 12/20/22 23:59 23:59 23:59 Intake Total 1663.25 / 1663.25 1300 / 1300 400 / 400 Balance 1663.25 / 1663.25 1300 / 1300 400 / 400 Lab / Micro Data Result Diagrams: 12/20/22 07:55 12/20/22 07:55 Labs: Laboratory Results - last 24 hr 12/19/22 17:08: POC Glucose 386 H 12/19/22 20:16: POC Glucose 372 H 12/20/22 05:36: POC Glucose 442 H 12/20/22 07:55: WBC 9.4, RBC 3.78 L, Hgb 11.4 L, Hct 36.2 L, MCV 95.8, MCH 30.2, MCHC 31.5 L, RDW Std Deviation 52.8 H, RDW Coeff of Aubrey 15.3 H, Plt Count 177, MPV 10.4 12/20/22 07:55: Sodium 137, Potassium 4.7, Chloride 104, Carbon Dioxide 30.0, Anion Gap 3 L, BUN 34 H, Creatinine 1.59 H, Estim Creat Clear Calc 25.91, Est G FR (MDRD) Af Amer 42 L, Est GFR (MDRD) Non-Af 34 L, BUN/Creatinine Ratio 21.4 H, Glucose 447 H, Calcium 9.0 12/20/22 12:33: POC Glucose 302 H Micro: Microbiology 12/11/22 15:48 Swab (Method) Nasal Screen MRSA/MSSA - Final Physical Exam Narrative alert, oriented x3, no apparent distress and average body habitus General Appearance: cooperative, well kempt and well developed Orientation / Consciousness: awake, oriented to person, oriented to place and oriented to time HEENT normocephalic, head/scalp atraumatic and moist oral mucous membranes Eyes PERRL, EOMs intact bilaterally and conjunctivae normal Neck supple, no JVD, thyroid normal and no carotid bruits General: trachea midline Resp normal respiratory effort, no retractions, no use of accessory muscles and clear to auscultation bilaterally Auscultation: Negative for rales, rhonchi or wheezes Cardio regular rate, regular rhythm, S1 normal heart sound, S2 normal heart sound, no murmurs, no rub and no gallops GI normal to inspection, nondistended, normoactive bowel sounds, soft to palpation, non-tender and non-distended Neuro oriented x3, CN's II-XII intact bilaterally, no focal motor deficits and no sensory deficits noted Sensorium / Orientation: awake and alert Speech: speech normal Psych affect normal Assessment & Plan Assessment/Plan (1) Closed intertrochanteric fracture of left femur: QUALIFIERS: Encounter type: initial encounter Fracture alignment: nondisplaced Qualified Code(s): S72.145A - Nondisplaced intertrochanteric fracture of left femur, initial encounter for closed fracture (2) Diabetes mellitus type 2 in obese: PLAN: Plan 1. Type 2 diabetes-patient will remain on her outpatient insulin regimen #2 essential hypertension-patient will remain on her present medications #3 hyperlipidemia-patient is on atorvastatin #4 chronic depression-patient is on Cymbalta #5 hypothyroidism-patient is on levothyroxine #6 paroxysmal atrial fibrillation-patient is on Eliquis #7 status post revision of intertrochanteric hip fixation left hip-postop day #2, outpatient PT and OT will be arranged for the patient #8 chronic hypoxic respiratory failure-patient is on 3 L via nasal cannula as an outpatient Total clinical time spent by myself addressing the patient's medical issues, reviewing all of her data, and collaborating with the patient's care team: 35 minutes Charges/Coding Visit Charges Inpatient E&M: 34148 Subs Hosp L2
[2022-12-20 16:14] VITALS: BP 132/84; PULSE 78; RESP 18; TEMP 37.1; O2SAT 98
== END 2022-12-20 16:15 | disposition home health service (06) | DRG 498 ==
LOC: SDC 20:02 → MS3 20:02
PROVIDERS: Anesthesiology; Physician Assistant Surgical; Admitting Provider Specialist; PCP Family Medicine; Referring Provider Specialist; Visit Provider Specialist
PROC: 0QW704Z Revision of Internal Fixation Device in Left Upper Femur, Open Approach (ICD-10-PCS; CPT 27245; principal; 2022-12-18 13:45)
DX: T84.84XA Pain due to internal orthopedic prosthetic devices, implants and grafts, initial encounter (principal); S72.145A Nondisplaced intertrochanteric fracture of left femur, initial encounter for closed fracture; J96.11 Chronic respiratory failure with hypoxia; Z68.38 Body mass index [BMI] 38.0-38.9, adult; I48.0 Paroxysmal atrial fibrillation; E11.65 Type 2 diabetes mellitus with hyperglycemia; E03.9 Hypothyroidism, unspecified; G25.81 Restless legs syndrome; F03.90 Unspecified dementia, unspecified severity, without behavioral disturbance, psychotic disturbance, mood disturbance, and anxiety; Z79.4 Long term (current) use of insulin; M17.12 Unilateral primary osteoarthritis, left knee; E78.00 Pure hypercholesterolemia, unspecified; M10.9 Gout, unspecified; I25.10 Atherosclerotic heart disease of native coronary artery without angina pectoris; I10 Essential (primary) hypertension; J45.909 Unspecified asthma, uncomplicated; K21.9 Gastro-esophageal reflux disease without esophagitis; I25.2 Old myocardial infarction; X58.XXXA Exposure to other specified factors, initial encounter; M81.0 Age-related osteoporosis without current pathological fracture; N32.81 Overactive bladder; F32.A Depression, unspecified; E66.9 Obesity, unspecified; Z99.81 Dependence on supplemental oxygen; Z79.01 Long term (current) use of anticoagulants; Z79.82 Long term (current) use of aspirin; Z79.890 Hormone replacement therapy; Z79.899 Other long term (current) drug therapy; Z95.5 Presence of coronary angioplasty implant and graft; Z87.891 Personal history of nicotine dependence
CPT/HCPCS: 36415; 73501; 73502; 76000; 80048; 82040; 82962; 83036; 83735; 84443; 85025; 85027; 87077; 87081; 94668; 97116; 97162; 97166; 97530; 97535; 97802; 99252; C1713; J7050; J7120; G0463; J2405; J3475

== ENCOUNTER 2023-01-03 17:29 | Emergency (ER) | payer MEDICARE, MEDICAID, SELFPAY ==
[2023-01-03 17:30] VITALS: BP 122/80; PULSE 81; RESP 16; TEMP 36.4; O2SAT 100
[2023-01-03 18:06] VITALS: BP 121/80; PULSE 81; RESP 17; TEMP 36.4; O2SAT 97; BMI 36.4
--- NOTE | 2023-01-03 19:34 | ED.VIS.LOWEX ---
HPI History of Present Illness Chief Complaint: Wound Informant: patient Narrative Narrative: Patient is a 67 year old female with history of diabetic neuropathy, HTN, HLD and proximal atrial fibrillation presenting with left foot wound. Patient states when she took her shoe off yesterday she noted a blister to her left fourth toe. It was red. Since this morning she had increased redness at the base of her left first toe that is now going up her foot. She also noticed a red rash on her distal inner leg. She denies any injury or trauma recently. She notes she dropped a walker on her foot a month ago but that had healed. She denies any history of MRSA. Denies any fever, chills or any other complaints. 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 Back pain Broken rib Cancer Cardiology follow-up encounter Chronic kidney disease (CKD) stage G3b/A1, moderately decreased glomerular filtration rate (GFR) between 30-44 mL/min/1.73 square meter and albuminuria creatinine ratio less than 30 mg/g Chronic respiratory insufficiency Closed intertrochanteric fracture of left femur COPD (chronic obstructive pulmonary disease) DDD (degenerative disc disease) Diabetes Diabetes mellitus type 2 in obese Diabetic neuropathy Difficulty swallowing DVT (deep venous thrombosis) Essential hypertension Excessive bleeding Fall at home Former smoker Gastric reflux Gastroparesis Gastroparesis GERD (gastroesophageal reflux disease) High cholesterol History of cervical cancer History of CHF (congestive heart failure) History of diverticulitis History of DVT (deep vein thrombosis) History of edema History of heart attack History of Holter monitoring History of IBS History of renal disease History of stress test Hypothyroidism Injury of back Insulin dependent diabetes mellitus Lung nodule Migraine headache Mixed hyperlipidemia On home oxygen therapy PARESH (obstructive sleep apnea) Paroxysmal A-fib Paroxysmal atrial fibrillation Post-menopausal Presence of stent in coronary artery (~12/07/03) Pulmonary embolism Pulmonary embolism Pulmonary hypertension RLS (restless legs syndrome) Sleep apnea Thyroid disease Tinnitus Uses wheelchair Walker as ambulation aid Wears dentures Wears glasses Wears hearing aid Home Medications atorvastatin 40 mg tablet 40 mg PO QHS CHOLESTEROL LOWERING 02/03/18 [History Last Taken 12/17/22] levothyroxine 100 mcg tablet 100 mcg PO DAILY THYROID 02/03/18 [History Last Taken 12/18/22] ascorbic acid (vitamin C) 500 mg tablet 500 mg PO DAILY@1700 supplement 05/17/18 [History Last Taken 12/17/22] aspirin 81 mg tablet,delayed release 81 mg PO DAILY@1700 Heart 09/02/18 [History Last Taken 12/17/22] potassium chloride 10 mEq tablet,extended release 10 meq PO DAILY supplement 06/08/19 [History Last Taken 12/17/22] allopurinol 100 mg tablet 100 mg PO DAILY gout 08/11/19 [History Last Taken 12/17/22] furosemide 20 mg tablet 20 mg PO BID FLUID 10/25/20 [History Last Taken 12/17/22] omeprazole 40 mg capsule,delayed release 40 mg PO DAILY GERD 10/25/20 [History Last Taken 12/18/22] cholecalciferol (vitamin D3) 50 mcg (2,000 unit) capsule 2,000 unit PO DAILY SUPPLEMENT 12/13/20 [History Last Taken 12/17/22] buspirone 10 mg tablet 10 mg PO TID depression 06/12/22 [History Last Taken 12/17/22] duloxetine 60 mg capsule,delayed release 60 mg PO DAILY MENTAL HEALTH 06/12/22 [History Last Taken 12/17/22] fexofenadine 180 mg tablet 180 mg PO DAILY ALLERGIES 06/12/22 [History Last Taken 12/17/22] insulin glargine 100 unit/mL (3 mL) subcutaneous pen (Lantus Solostar U-100 Insulin) 42 unit subcut BID DM 06/12/22 [History Last Taken 12/17/22] insulin lispro 100 unit/mL subcutaneous pen 16 unit subcut BREAKFAST DIABETES 06/12/22 [History Last Taken 12/17/22] insulin lispro 100 unit/mL subcutaneous pen 20 unit subcut LUNCH DIABETES 06/12/22 [History Last Taken 12/17/22] insulin lispro 100 unit/mL subcutaneous pen 24 unit subcut DINNER DIABETES 06/12/22 [History Last Taken 12/17/22] sodium chloride 0.65 % nasal spray aerosol (Saline Mist) 2 spray intranasal DAILY ALLERGIES 06/12/22 [History Last Taken 12/17/22] nitroglycerin 0.4 mg sublingual tablet 0.4 mg sublingual Q5-15M PRN chest pain #25 tabs 10/21/22 [Rx Last Taken 12/17/22] apixaban 2.5 mg tablet 2.5 mg PO BID Blood thinner 11/12/22 [History Last Taken 12/15/22] albuterol sulfate 90 mcg/actuation aerosol inhaler 1 - 2 puff inhalation PRN PRN COPD 12/12/22 [History Last Taken 12/17/22] amlodipine 5 mg tablet 5 mg PO DAILY BP 12/12/22 [History Last Taken 12/18/22] ferrous sulfate 325 mg (65 mg iron) tablet 325 mg PO DAILY SUPPLEMENT 12/12/22 [History Last Taken 12/17/22] isosorbide mononitrate 120 mg tablet,extended release 24 hr 120 mg PO DAILY HEART 12/12/22 [History Last Taken 12/18/22] acetaminophen 500 mg tablet 1,000 mg PO Q8 #0 tabs 12/18/22 [Rx Last Taken Unknown] oxycodone 5 mg tablet 5 - 10 mg PO Q4H PRN PRN Pain Score 4-10/10 5 days #60 tabs 12/18/22 [Rx Last Taken Unknown] metoprolol tartrate 100 mg tablet 100 mg PO BID Heart Rate #60 tabs 12/27/22 [Rx Last Taken Unknown] doxycycline hyclate 100 mg capsule 100 mg PO BID #20 caps 01/03/23 [Rx Last Taken Unknown] Allergy/AdvReac Type Severity Reaction Status Date / Time ciprofloxacin [From Cipro] Allergy Hives Verified 01/03/23 17:33 latex Allergy amtos me Verified 01/03/23 17:33 niacin Allergy Hives Verified 01/03/23 17:33 [From Niaspan Extended-Release] ondansetron [From Zofran] Allergy Unknown Verified 01/03/23 17:33 ranolazine [From Ranexa] Allergy Itching Verified 01/03/23 17:33 Xanthines Allergy Unknown Verified 01/03/23 17:33 adhesive tape AdvReac Other Verified 01/03/23 17:33 orphenadrine citrate AdvReac groggy Verified 01/03/23 17:33 [From Norgesic] Family History Mother CAD (coronary artery disease) Father CAD (coronary artery disease) Brother CAD (coronary artery disease) Asthma Sister Hypertension Sister Diabetes Sister Heart disease Surgical History History of cardiac catheterization History of cholecystectomy History of coronary artery stent placement History of hernia repair History of knee surgery History of left heart catheterization (LHC) (~09/28/19) History of nasal surgery History of surgery on wrist History of total abdominal hysterectomy History of tubal ligation Hx of surgical procedure Presence of coronary angioplasty implant and graft (~12/07/03) Social History Smoking Status: Former smoker alcohol intake: never substance use type: does not use caffeine: Yes Type: coffee Number of servings: 1 ROS ROS ED Constitutional Constitutional ED: Denies chills or fever(s) Eyes Eyes: Denies change in vision Cardiovascular Cardiovascular: Denies chest pain Respiratory/Chest Respiratory/Chest: Denies cough Gastrointestinal Gastrointestinal: Denies nausea or vomiting Musculoskeletal Musculoskeletal: Reports other Details: left foot pain ; Denies arthralgias or myalgias Integumentary Reports rash Neurologic Neurologic: Reports paresthesias Hematologic/Lymphatic Hematologic/Lymphatic: Reports easy bleeding EXAM Physical Exam Const Vital Signs: 01/03/23 17:30 01/03/23 18:06 Temperature 97.5 F L 97.5 F L Temperature Source Temporal Temporal Pulse Rate 81 81 Respiratory Rate 16 17 Blood Pressure 122/80 H 121/80 H Blood Pressure Mean 94 93 Pulse Ox 100 97 Oxygen Delivery Method Room Air Nasal Cannula Oxygen Flow Rate (L/min) 3 Positive well nourished, well developed and obese General Appearance ED: well developed and NAD Nutritional Appearance: obese HEENT Reports moist mucous membranes Neck supple Chest Wall inspection of chest normal and palpation of chest normal Resp normal respiratory effort Cardio regular rate, regular rhythm and no murmurs Extremity full ROM Extremity Narrative: No peripheral edema appreciated. No obvious deformity. Neuro oriented x3 Sensorium / Orientation: alert Motor Exam: Negative for general weakness Psych mental status grossly normal Psych Narrative: Patient sitting comfortably in the bed. She is currently drinking a Coca-Cola and eating barbecue chips. Skin Skin Narrative: Scattered petechia to bilateral distal inner legs, left more pronounced on the right. No purpura appreciated. No associated tenderness or warmth. Patient has erythema and warmth of the first great toe tracking down to approximately the midfoot. There is also erythema and warmth of the fourth toe. There is blisters overlying both the first and fourth toe. No active drainage at this time. MDM MDM MDM Narrative Medical decision making narrative: Patient is evaluated for foot wound. She states that symptoms well developed in the last 24 hours. She denies any fever or systemic symptoms. Because of her diabetes and the size of the wound within 24 hours I am concerned for more severe infection. CBC, ESR, CRP, BMP, lactate and x-ray are obtained. In addition I did order dose of IV Unasyn. Patient is very poor peripheral access and we ultimately able to get blood however I was unable to collect blood cultures and IV access itself was not obtained. Patient did not want any more attempts. Patient has surprisingly good labs with normal white blood cell count, normal ESR, normal CRP, lactate of 1.0 and only mild hyperglycemia with a glucose of 183. She has a normal anion gap. Her creatinine is mildly elevated at 1.45 however this appears to be her baseline. Patient states that regardless of her labs she did not want to be admitted because she has a dog and a bird at home. Patient is counseled on the risk of rapid progression of cellulitis, potential risk of the loss of her foot and other complications. She verbalized understanding of this. Shared decision making is made and patient is discharged home on doxycycline. She is given first dose in the emergency room. Wound edges are demarcated with a surgical pen prior to discharge. Lab Data Attestation: I reviewed the patient's lab results. Labs: Laboratory Results - last 24 hr 01/03/23 01/03/23 01/03/23 21:50 21:50 21:50 WBC 9.6 RBC 4.13 L Hgb 12.9 Hct 39.3 MCV 95.2 MCH 31.2 MCHC 32.8 RDW Std Deviation 53.7 H RDW Coeff of Aubrey 15.5 H Plt Count 195 MPV 9.9 Immature Gran % (Auto) 0.500 Neut % (Auto) 78.4 H Lymph % (Auto) 10.7 L Deuel % (Auto) 8.0 Eos % (Auto) 2.1 Baso % (Auto) 0.3 Absolute Neuts (auto) 7.5 Absolute Lymphs (auto) 1.03 Nucleated RBC % 0 ESR 19 Sodium 140 Potassium 3.7 Chloride 109 H Carbon Dioxide 28.0 Anion Gap 3 L BUN 42 H Creatinine 1.45 H Estim Creat Clear Calc 28.41 Est GFR (MDRD) Af Amer 46 L Est GFR (MDRD) Non-Af 38 L BUN/Creatinine Ratio 29.0 H Glucose 183 H Lactic Acid 1.0 Calcium 8.6 C-React Prot Ext Range < 2.90 Radiography Diagnostic Testing: Clinical Impression(s) from Imaging Studies Foot X-Ray 01/03/23 20:58 IMPRESSION: No finding of bone infection. No acute abnormal finding in the foot. Electronically Signed: Jose Armando Loving MD at 21:47 EDT , Discharge Plan Triage Chief Complaint: Wound ED Provider: Maryanne Castro Dx/Rx/DC Orders Clinical Impression: Cellulitis of great toe of left foot, Diabetes mellitus type 2 in obese Instructions: ED Cellulitis, ED Diabetic Foot Care Prescriptions: New doxycycline hyclate 100 mg capsule 100 mg PO BID Qty: 20 0RF No Action potassium chloride 10 mEq tablet extended release 10 meq PO DAILY Hold Instructions: until lasix restarted allopurinol 100 mg tablet 100 mg PO DAILY buspirone 10 mg tablet 10 mg PO TID Rx Instructions: 10mg bid and 15mg QS Saline Mist 0.65 % aerosol,spray 2 spray intranasal DAILY atorvastatin 40 MG tablet 40 mg PO QHS Label Comments: cholesterol levothyroxine 100 MCG tablet 100 mcg PO DAILY Label Comments: thyroid duloxetine 60 mg capsule,delayed release(DR/EC) 60 mg PO DAILY Label Comments: mental health ascorbic acid (vitamin C) 500 MG tablet 500 mg PO DAILY@1700 Label Comments: Supplement aspirin 81 MG tablet 81 mg PO DAILY@1700 Label Comments: STOP 5 DAYS PRIOR TO OR fexofenadine 180 mg tablet 180 mg PO DAILY omeprazole 40 MG capsule,delayed release(DR/EC) 40 mg PO DAILY furosemide 20 MG tablet 20 mg PO BID Hold Instructions: hold until BP will allow reinitiation cholecalciferol (vitamin D3) 50 MCG capsule 2,000 unit PO DAILY insulin glargine [Lantus Solostar U-100 Insulin] 100 unit/mL (3 mL) insulin pen 42 unit SC BID insulin lispro 100 unit/mL insulin pen 16 unit SC BREAKFAST insulin lispro 100 unit/mL insulin pen 20 unit SC LUNCH insulin lispro 100 unit/mL insulin pen 24 unit SC DINNER ferrous sulfate 325 mg (65 mg iron) Tablet 325 mg PO DAILY amlodipine 5 mg tablet 5 mg PO DAILY isosorbide mononitrate 120 mg tablet extended release 24 hr 120 mg PO DAILY albuterol sulfate 90 mcg/actuation HFA aerosol inhaler 1 - 2 puff INHALATION PRN PRN (Reason: COPD) acetaminophen 500 mg Tablet 1,000 mg PO Q8 Qty: 0 0RF oxycodone 5 mg Tablet 5 - 10 mg PO Q4H PRN PRN (Reason: Pain Score 4-10/10) 5 Days Qty: 60 0RF nitroglycerin 0.4 mg tablet, sublingual 0.4 mg sublingual Q5-15M PRN (Reason: chest pain) Qty: 25 3RF apixaban 2.5 mg tablet 2.5 mg PO BID Label Comments: .Blood thinner- LAST DOSE 3-4 DAYS PRIOR, PT HAS WRITTEN ON PAPER metoprolol tartrate 100 mg tablet 100 mg PO BID Qty: 60 11RF Primary Care Provider: Bhupendra Oliveira Referrals: Bhupendra Oliveira MD [Primary Care Provider] - Activity Restrictions/Additional Instructions: Please follow-up with your construction field engineer. Please return to the emergency room if the redness is getting worse you develop fever or any progression of your symptoms. Disposition Disposition: Home, Self Care
--- NOTE | 2023-01-03 20:30 | ED.RN ---
DR CAMPOS AWARE OF DIFFICULTY OBTAINING VASCULAR ACCESS.
--- NOTE | 2023-01-03 20:58 | RAD_ITS ---
INDICATION: Left foot pain, wound EXAMINATION/TECHNIQUE: X-RAY - LEFT XR Foot Min 3 Views 3 VIEWS COMPARISON: None FINDINGS: SOFT TISSUES: No soft tissue swelling or gas. No radiopaque foreign body. BONES/JOINTS: No acute fracture or subluxation. Lisfranc and Chopart planes appear normal. Joint spaces are preserved. No sclerotic or destructive changes observed. RAD/Foot min 3 Views IMPRESSION: No finding of bone infection. No acute abnormal finding in the foot. Electronically Signed: Jose Armando Loving MD at 21:47 EDT ,
[2023-01-03 22:08] LABS: Absolute Lymphocyte Count 1.03 X10^3/uL (0.83-4.51); Absolute Neutrophil Count 7.5 X10^3/uL (2.0-7.7); Basophil# 0.03 X10^3/uL; Basophil% 0.3 % (0-1); Eosinophils% 2.1 % (0-5); Hematocrit 39.3 % (37-47); Hemoglobin 12.9 g/dL (12.0-15.0); Lymphocyte # 1.03 X10^3/ul (0.83-4.51); Lymphocyte % 10.7 % (19-41); Mean Corp Hgb Conc 32.8 g/dL (32-36); Mean Corpuscular Hgb 31.2 pg (27.0-32.0); Mean Corpuscular Volume 95.2 fL (81-99); Mean Platelet Vol. 9.9 fl (6.2-12.0); Monocyte# 0.77 X10^3/uL; NRBC Flagged by Analyzer 0 % (0-5); Neutrophil # 7.54 X10^3/uL (2.7-7.7); Neutrophil % 78.4 % (47-70); Platelet Count 195 K/mm3 (150-450); RBC Distribution Width CV 15.5 % (11.6-14.6); RBC Distribution Width SD 53.7 fl (35.1-43.9); Red Blood Count 4.13 M/mm3 (4.2-5.4); White Blood Count 9.6 K/mm3 (4.4-11.0)
[2023-01-03 22:23] LABS: Erythrocyte Sedimentation Rate 19 mm/hr (0-30)
[2023-01-03 22:24] LABS: Anion Gap 3 (5-15); BUN 42 mg/dL (7-18); CRP < 2.90 mg/L (0.0-3.0); Calcium,Total 8.6 mg/dL (8.5-10.1); Chloride 109 mmol/L (98-107); Creatinine, Serum 1.45 mg/dL (0.55-1.02); EST Glomerular Filtration Rate 38 mL/min (>60); Est Glom Filt Rate - Afr Amer 46 mL/min (>60); Estimated Creatinine Clearance 28.41 ml/min; Glucose 183 mg/dL (74-106); Potassium 3.7 mmol/L (3.5-5.1); Sodium Level 140 mmol/L (136-145)
[2023-01-03] MEDS: Doxycycline 100 MG CAPSULE PO (23:26)
[2023-01-04 00:07] VITALS: BP 128/79; PULSE 75; RESP 18; O2SAT 100
== END 2023-01-04 00:30 | disposition home or self-care (01) ==
PROVIDERS: Emergency Provider Emergency Medicine; PCP Family Medicine; Visit Provider Emergency Medicine
DX: L03.032 Cellulitis of left toe (principal); J44.9 Chronic obstructive pulmonary disease, unspecified; I13.0 Hypertensive heart and chronic kidney disease with heart failure and stage 1 through stage 4 chronic kidney disease, or unspecified chronic kidney disease; I50.9 Heart failure, unspecified; E11.22 Type 2 diabetes mellitus with diabetic chronic kidney disease; E11.43 Type 2 diabetes mellitus with diabetic autonomic (poly)neuropathy; I48.0 Paroxysmal atrial fibrillation; N18.32 Chronic kidney disease, stage 3b; I25.10 Atherosclerotic heart disease of native coronary artery without angina pectoris; Z79.01 Long term (current) use of anticoagulants; Z87.891 Personal history of nicotine dependence; E78.2 Mixed hyperlipidemia; E66.9 Obesity, unspecified; K31.84 Gastroparesis
CPT/HCPCS: 73630; 80048; 83605; 85025; 85652; 86140; 99284; A4216; J0295

== ENCOUNTER 2023-01-14 00:56 | Emergency (ER) | payer MEDICARE, MEDICAID, SELFPAY ==
[2023-01-14 00:57] VITALS: BP 143/44; PULSE 74; RESP 18; TEMP 36; O2SAT 100; BMI 36.0
--- NOTE | 2023-01-14 01:18 | RAD_ITS ---
EXAM: XR CHEST, 1 VIEW CLINICAL INDICATION: cough TECHNIQUE: Frontal view of the chest. This report was created using [employer]Pin report generation technology. COMPARISON: None. FINDINGS: LUNGS AND PLEURAL SPACES: Enlarged hilar regions are concerning for pulmonary arterial enlargement/pulmonary hypertension. No pneumothorax. No effusion. HEART: Fullness of the cardiac silhouette is concerning for cardiomegaly and/or pericardial effusion. MEDIASTINUM: Central airways and mediastinal contour are unremarkable. BONES/JOINTS: Degenerative changes of the spine. SOFT TISSUES: Unremarkable. RAD/Chest 1 View (Portable) IMPRESSION: No acute cardiopulmonary disease. Electronically Signed: Thai Ang MD at 2:27 EDT ,
[2023-01-14] MEDS: Ipratropium/Albuterol Sulfate 3 ML AMPUL.NEB INHALATION (01:25)
[2023-01-14 01:27] VITALS: PULSE 106; RESP 28
[2023-01-14 01:32] LABS: Absolute Lymphocyte Count 0.65 X10^3/uL (0.83-4.51); Absolute Neutrophil Count 3.9 X10^3/uL (2.0-7.7); Basophil# 0.01 X10^3/uL; Basophil% 0.2 % (0-1); Eosinophils% 7.2 % (0-5); Hematocrit 43.8 % (37-47); Hemoglobin 13.7 g/dL (12.0-15.0); Lymphocyte # 0.65 X10^3/ul (0.83-4.51); Lymphocyte % 11.7 % (19-41); Mean Corp Hgb Conc 31.3 g/dL (32-36); Mean Corpuscular Hgb 31.1 pg (27.0-32.0); Mean Corpuscular Volume 99.5 fL (81-99); Mean Platelet Vol. 10.4 fl (6.2-12.0); Monocyte% 10.8 % (0-10); NRBC Flagged by Analyzer 0 % (0-5); Neutrophil # 3.86 X10^3/uL (2.7-7.7); Neutrophil % 69.2 % (47-70); Platelet Count 145 K/mm3 (150-450); RBC Distribution Width CV 15.3 % (11.6-14.6); RBC Distribution Width SD 56.6 fl (35.1-43.9); White Blood Count 5.6 K/mm3 (4.4-11.0)
[2023-01-14 01:45] LABS: Anion Gap 7 (5-15); BUN 33 mg/dL (7-18); BUN/Creat Ratio 21.9 RATIO (10-20); Calcium,Total 8.9 mg/dL (8.5-10.1); Chloride 109 mmol/L (98-107); Creatinine, Serum 1.51 mg/dL (0.55-1.02); EST Glomerular Filtration Rate 36 mL/min (>60); Est Glom Filt Rate - Afr Amer 44 mL/min (>60); Estimated Creatinine Clearance 27.28 ml/min; Glucose 179 mg/dL (74-106); Potassium 3.8 mmol/L (3.5-5.1); Sodium Level 141 mmol/L (136-145)
[2023-01-14 01:58] LABS: Lactic Acid 2.1 mmol/L (0.4-1.9)
--- NOTE | 2023-01-14 02:54 | EDS_ITS ---
HPI History of Present Illness Chief Complaint: General Illness Informant: patient Narrative Narrative: Patient is a 67-year-old female with past medical history of hypertension hyperlipidemia atrial fibrillation currently on Xarelto and type 2 diabetes as well as COPD requiring 3 L of nasal cannula oxygen 14/04. She was seen recently for cellulitis of her left foot and has been on antibiotics. She states that she feels like her foot is improving but she has had a persistent cough that is worse in nature and she is concerned for pneumonia. Secondary to the fact she is concerned about respiratory infection she presents for evaluation [facility] Medical History Anemia Anxiety Anxiety Arthritis Atherosclerotic heart disease of [place] coronary artery without angina pectoris Back pain Broken rib Cancer Cardiology follow-up encounter Chronic kidney disease (CKD) stage G3b/A1, moderately decreased glomerular filtration rate (GFR) between 30-44 mL/min/1.73 square meter and albuminuria creatinine ratio less than 30 mg/g Chronic respiratory insufficiency Closed intertrochanteric fracture of left femur COPD (chronic obstructive pulmonary disease) DDD (degenerative disc disease) Diabetes Diabetes mellitus type 2 in obese Diabetic neuropathy Difficulty swallowing DVT (deep venous thrombosis) Essential hypertension Excessive bleeding Fall at home Former smoker Gastric reflux Gastroparesis Gastroparesis GERD (gastroesophageal reflux disease) High cholesterol History of cervical cancer History of CHF (congestive heart failure) History of diverticulitis History of DVT (deep vein thrombosis) History of edema History of heart attack History of Holter monitoring History of IBS History of renal disease History of stress test Hypothyroidism Injury of back Insulin dependent diabetes mellitus Lung nodule Migraine headache Mixed hyperlipidemia On home oxygen therapy PARESH (obstructive sleep apnea) Paroxysmal A-fib Paroxysmal atrial fibrillation Post-menopausal Presence of stent in coronary artery (~12/07/03) Pulmonary embolism Pulmonary embolism Pulmonary hypertension RLS (restless legs syndrome) Sleep apnea Thyroid disease Tinnitus Uses wheelchair Walker as ambulation aid Wears dentures Wears glasses Wears hearing aid Home Medications atorvastatin 40 mg tablet 40 mg PO QHS CHOLESTEROL LOWERING 02/03/18 [History Last Taken 12/17/22] levothyroxine 100 mcg tablet 100 mcg PO DAILY THYROID 02/03/18 [History Last Taken 12/18/22] ascorbic acid (vitamin C) 500 mg tablet 500 mg PO DAILY@1700 supplement 05/17/18 [History Last Taken 12/17/22] aspirin 81 mg tablet,delayed release 81 mg PO DAILY@1700 Heart 09/02/18 [History Last Taken 12/17/22] potassium chloride 10 mEq tablet,extended release 10 meq PO DAILY supplement 06/08/19 [History Last Taken 12/17/22] allopurinol 100 mg tablet 100 mg PO DAILY gout 08/11/19 [History Last Taken 12/17/22] furosemide 20 mg tablet 20 mg PO BID FLUID 10/25/20 [History Last Taken 12/17/22] omeprazole 40 mg capsule,delayed release 40 mg PO DAILY GERD 10/25/20 [History Last Taken 12/18/22] cholecalciferol (vitamin D3) 50 mcg (2,000 unit) capsule 2,000 unit PO DAILY SUPPLEMENT 12/13/20 [History Last Taken 12/17/22] buspirone 10 mg tablet 10 mg PO TID depression 06/12/22 [History Last Taken 12/17/22] duloxetine 60 mg capsule,delayed release 60 mg PO DAILY MENTAL HEALTH 06/12/22 [History Last Taken 12/17/22] fexofenadine 180 mg tablet 180 mg PO DAILY ALLERGIES 06/12/22 [History Last Taken 12/17/22] insulin glargine 100 unit/mL (3 mL) subcutaneous pen (Lantus Solostar U-100 Insulin) 42 unit subcut BID DM 06/12/22 [History Last Taken 12/17/22] insulin lispro 100 unit/mL subcutaneous pen 16 unit subcut BREAKFAST DIABETES 0 06/12/22 [History Last Taken 12/17/22] insulin lispro 100 unit/mL subcutaneous pen 20 unit subcut LUNCH DIABETES 06/12/22 [History Last Taken 12/17/22] insulin lispro 100 unit/mL subcutaneous pen 24 unit subcut DINNER DIABETES 06/12/22 [History Last Taken 12/17/22] sodium chloride 0.65 % nasal spray aerosol (Saline Mist) 2 spray intranasal DAILY ALLERGIES 06/12/22 [History Last Taken 12/17/22] nitroglycerin 0.4 mg sublingual tablet 0.4 mg sublingual Q5-15M PRN chest pain #25 tabs 10/21/22 [Rx Last Taken 12/17/22] apixaban 2.5 mg tablet 2.5 mg PO BID Blood thinner 11/12/22 [History Last Taken 12/15/22] albuterol sulfate 90 mcg/actuation aerosol inhaler 1 - 2 puff inhalation PRN PRN COPD 12/12/22 [History Last Taken 12/17/22] amlodipine 5 mg tablet 5 mg PO DAILY BP 12/12/22 [History Last Taken 12/18/22] ferrous sulfate 325 mg (65 mg iron) tablet 325 mg PO DAILY SUPPLEMENT 12/12/22 [History Last Taken 12/17/22] isosorbide mononitrate 120 mg tablet,extended release 24 hr 120 mg PO DAILY HEA RT 12/12/22 [History Last Taken 12/18/22] acetaminophen 500 mg tablet 1,000 mg PO Q8 #0 tabs 12/18/22 [Rx Last Taken Unknown] oxycodone 5 mg tablet 5 - 10 mg PO Q4H PRN PRN Pain Score 4-10/10 5 days #60 tabs 12/18/22 [Rx Last Taken Unknown] metoprolol tartrate 100 mg tablet 100 mg PO BID Heart Rate #60 tabs 12/27/22 [Rx Last Taken Unknown] doxycycline hyclate 100 mg capsule 100 mg PO BID #20 caps 01/03/23 [Rx Last Taken Unknown] codeine 6.3 mg-guaifenesin 100 mg/5 mL oral liquid 10 ml PO 4X/DAY PRN PRN cough 5 days #200 mL 01/14/23 [Rx Last Taken Unknown] Allergy/AdvReac Type Severity Reaction Status Date / Time ciprofloxacin [From Cipro] Allergy Hives Verified 01/14/23 01:02 latex Allergy matos me Verified 01/14/23 01:02 niacin Allergy Hives Verified 01/14/23 01:02 [From Niaspan Extended-Release] ondansetron [From Zofran] Allergy Unknown Verified 01/14/23 01:02 ranolazine [From Ranexa] Allergy Itching Verified 01/14/23 01:02 Xanthines Allergy Unknown Verified 01/14/23 01:02 adhesive tape AdvReac Other Verified 01/14/23 01:02 orphenadrine citrate AdvReac groggy Verified 01/14/23 01:02 [From Norgesic] Family History Mother CAD (coronary artery disease) Father CAD (coronary artery disease) Brother CAD (coronary artery disease) Asthma Sister Hypertension Sister Diabetes Sister Heart disease Surgical History History of cardiac catheterization History of cholecystectomy History of coronary artery stent placement History of hernia repair History of knee surgery History of left heart catheterization (LHC) (~09/28/19) History of nasal surgery History of surgery on wrist History of total abdominal hysterectomy History of tubal ligation Hx of surgical procedure Presence of coronary angioplasty implant and graft (~12/07/03) Social History Smoking Status: Former smoker alcohol intake: never substance use type: does not use caffeine: Yes Type: coffee Number of servings: 1 ROS ROS ED Constitutional Constitutional ED: Denies chills or fever(s) ENT ENT ED: Reports rhinorrhea and sore throat Cardiovascular Cardiovascular: Denies chest pain Respiratory/Chest Respiratory/Chest: Reports cough and dyspnea Gastrointestinal Gastrointestinal: Denies abdominal pain, diarrhea, nausea or vomiting Genitourinary Genitourinary ED: Denies dysuria Musculoskeletal Musculoskeletal: Denies myalgias Integumentary Denies rash Neurologic Neurologic: Denies headache(s) Hematologic/Lymphatic Hematologic/Lymphatic: Denies easy bleeding or easy bruising EXAM Physical Exam Const Vital Signs: 01/14/23 00:57 01/14/23 00:57 01/14/23 01:27 Temperature 96.8 F L Temperature Source Temporal Pulse Rate 74 106 H Respiratory Rate 18 28 H Respiratory Effort Short of Breath Respiratory Pattern Tachypnea Blood Pressure 143/44 H Blood Pressure Mean 77 Pulse Ox 100 Oxygen Delivery Method Nasal Cannula Oxygen Flow Rate (L/min) 3 01/14/23 03:03 Temperature Temperature Source Pulse Rate 105 H Respiratory Rate 24 H Respiratory Effort Respiratory Pattern Blood Pressure 135/89 H Blood Pressure Mean Pulse Ox 96 Oxygen Delivery Method Oxygen Flow Rate (L/min) Positive well nourished, well developed and obese General Appearance ED: well developed Nutritional Appearance: obese HEENT HEENT Narrative: No tongue or lip swelling no oral lesions no airway edema or compromise Eyes PERRL and EOMs intact bilaterally Neck supple and no JVD Neck Narrative: No nuchal rigidity or meningeal signs noted Resp Resp Narrative: Breath sounds are diminished throughout with faint rhonchi and expiratory wheezing throughout. There is slight tachypnea noted Cardio regular rhythm Rate: other Other Details: Irregularly irregular rhythm with regular rate consistent with history of atrial fibrillation GI normal to inspection, nondistended, normoactive bowel sounds, non-tender, non- distended and no masses GI Narrative: No voluntary guarding or rigidity no pulsatile mass or fluid wave Auscultation: normoactive bowel sounds Palpation: soft Extremity normal to inspection Extremity Narrative: Trace pitting edema to the bilateral lower extremities that is equal and symmetric with negative Homans' sign bilaterally Patient does have mild erythema around the dorsal aspect of the left great toe and left fourth toe consistent with history of recent cellulitis. No obvious abscess formation or lymphangitic streaking noted Neuro oriented x3 and CN's II-XII intact bilaterally Sensorium / Orientation: alert Psych Psych Narrative: Patient has a flat affect Skin Skin Narrative: Soft tissue changes to the left foot/toes as documented above consistent with history of recent cellulitis diagnosis. MDM MDM MDM Narrative Medical decision making narrative: Patient presented to the ER in atrial fibrillation but at a controlled rate of roughly right around 100 she is also on Xarelto so my concern for a pulmonary embolus is low. She reports she is currently on antibiotics secondary to her cellulitis which in theory would also cover a bacterial pneumonia but as patient's had persistent cough differential includes pneumothorax pneumonia pleural effusion acute blood loss anemia or COPD exacerbation. Basic blood work was obtained which shows a normal white count of 5.6 and kidney function near her baseline without severe electrolyte derangement. Chest x-ray did not show any obvious lung pathology such as pneumonia or pneumothorax. Patient was given a breathing treatment and reported feeling better. At this time as she is in atrial fibrillation but has a history of this and is currently anticoagulated do not feel there is need for further work-up based on the cardiac dysrhythmia. X- ray has confirmed no pneumothorax pleural effusion or infiltrate. There is no signs that patient has acute blood loss anemia or severe electrolyte derangement. Symptoms and exam indicate this is most likely viral in nature leading to a COPD exacerbation. As she already has oxygen and she is at her baseline there is no need for admission and she is otherwise safe for discharge History & Record Review Discussion w/independent historian: Patient Lab Data Attestation: I reviewed the patient's lab results. Labs: Laboratory Results - last 24 hr 01/14/23 01/14/23 01/14/23 01:24 01:24 01:24 WBC 5.6 RBC 4.40 Hgb 13.7 Hct 43.8 MCV 99.5 H MCH 31.1 MCHC 31.3 L RDW Std Deviation 56.6 H RDW Coeff of Aubrey 15.3 H Plt Count 145 L MPV 10.4 Immature Gran % (Auto) 0.900 Neut % (Auto) 69.2 Lymph % (Auto) 11.7 L Lassen % (Auto) 10.8 H Eos % (Auto) 7.2 H Baso % (Auto) 0.2 Absolute Neuts (auto) 3.9 Absolute Lymphs (auto) 0.65 L Nucleated RBC % 0 Sodium 141 Potassium 3.8 Chloride 109 H Carbon Dioxide 25.0 Anion Gap 7 BUN 33 H Creatinine 1.51 H Estim Creat Clear Calc 27.28 Est GFR (MDRD) Af Amer 44 L Est GFR (MDRD) Non-Af 36 L BUN/Creatinine Ratio 21.9 H Glucose 179 H Lactic Acid 2.1 H* Calcium 8.9 Magnesium 2.0 Radiography Diagnostic Testing: Clinical Impression(s) from Imaging Studies Chest X-Ray 01/14/23 01:18 IMPRESSION: No acute cardiopulmonary disease. 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 Instructions: COPD: Wheezing and Chest Tightness Prescriptions: New codeine-guaifenesin 6.3-100 mg/5 mL liquid 10 ml PO 4X/DAY PRN PRN (Reason: cough) 5 Days Qty: 200 0RF No Action potassium chloride 10 mEq tablet extended release 10 meq PO DAILY Hold Instructions: until lasix restarted allopurinol 100 mg tablet 100 mg PO DAILY buspirone 10 mg tablet 10 mg PO TID Rx Instructions: 10mg bid and 15mg QS Saline Mist 0.65 % aerosol,spray 2 spray intranasal DAILY atorvastatin 40 MG tablet 40 mg PO QHS Label Comments: cholesterol levothyroxine 100 MCG tablet 100 mcg PO DAILY Label Comments: thyroid duloxetine 60 mg capsule,delayed release(DR/EC) 60 mg PO DAILY Label Comments: mental health ascorbic acid (vitamin C) 500 MG tablet 500 mg PO DAILY@1700 Label Comments: Supplement aspirin 81 MG tablet 81 mg PO DAILY@1700 Label Comments: STOP 5 DAYS PRIOR TO OR fexofenadine 180 mg tablet 180 mg PO DAILY omeprazole 40 MG capsule,delayed release(DR/EC) 40 mg PO DAILY furosemide 20 MG tablet 20 mg PO BID Hold Instructions: hold until BP will allow reinitiation cholecalciferol (vitamin D3) 50 MCG capsule 2,000 unit PO DAILY insulin glargine [Lantus Solostar U-100 Insulin] 100 unit/mL (3 mL) insulin pen 42 unit SC BID insulin lispro 100 unit/mL insulin pen 16 unit SC BREAKFAST insulin lispro 100 unit/mL insulin pen 20 unit SC LUNCH insulin lispro 100 unit/mL insulin pen 24 unit SC DINNER ferrous sulfate 325 mg (65 mg iron) Tablet 325 mg PO DAILY amlodipine 5 mg tablet 5 mg PO DAILY isosorbide mononitrate 120 mg tablet extended release 24 hr 120 mg PO DAILY albuterol sulfate 90 mcg/actuation HFA aerosol inhaler 1 - 2 puff INHALATION PRN PRN (Reason: COPD) acetaminophen 500 mg Tablet 1,000 mg PO Q8 Qty: 0 0RF oxycodone 5 mg Tablet 5 - 10 mg PO Q4H PRN PRN (Reason: Pain Score 4-10/10) 5 Days Qty: 60 0RF doxycycline hyclate 100 mg capsule 100 mg PO BID Qty: 20 0RF nitroglycerin 0.4 mg tablet, sublingual 0.4 mg sublingual Q5-15M PRN (Reason: chest pain) Qty: 25 3RF apixaban 2.5 mg tablet 2.5 mg PO BID Label Comments: .Blood thinner- LAST DOSE 3-4 DAYS PRIOR, PT HAS WRITTEN ON PAPER metoprolol tartrate 100 mg tablet 100 mg PO BID Qty: 60 11RF Primary Care Provider: Bhupendra Oliveira Referrals: Bhupendra Oliveira MD [Primary Care Provider] - Activity Restrictions/Additional Instructions: Your work-up today did not show any signs of pneumonia. Take the prescribed cough syrup to help control your cough and continue the antibiotics that were prescribed secondary to your cellulitis. Your work-up today indicates that the antibiotics are helping your symptoms. Continue to wear your oxygen as previously directed and return to the ER should you have any further concerns or worsening of symptoms Disposition Disposition: Home, Self Care Discharge Date/Time: 01/14/23 03:20
[2023-01-14 03:03] VITALS: BP 135/89; PULSE 105; RESP 24; O2SAT 96
[2023-01-14 05:29] LABS: Reflex Lactate? Y
== END 2023-01-14 03:20 | disposition home or self-care (01) ==
PROVIDERS: Emergency Provider Emergency Medicine; PCP Family Medicine; Visit Provider Emergency Medicine
DX: J44.1 Chronic obstructive pulmonary disease with (acute) exacerbation (principal); I50.9 Heart failure, unspecified; I13.0 Hypertensive heart and chronic kidney disease with heart failure and stage 1 through stage 4 chronic kidney disease, or unspecified chronic kidney disease; E11.43 Type 2 diabetes mellitus with diabetic autonomic (poly)neuropathy; E11.22 Type 2 diabetes mellitus with diabetic chronic kidney disease; I48.91 Unspecified atrial fibrillation; Z79.4 Long term (current) use of insulin; N18.32 Chronic kidney disease, stage 3b; Z79.01 Long term (current) use of anticoagulants; I25.10 Atherosclerotic heart disease of native coronary artery without angina pectoris; Z87.891 Personal history of nicotine dependence; E78.2 Mixed hyperlipidemia; Z99.81 Dependence on supplemental oxygen; E66.9 Obesity, unspecified; K31.84 Gastroparesis
CPT/HCPCS: 36415; 71045; 80048; 83605; 83735; 85025; 87428; 87633; 94640; 99282; A4216

== ENCOUNTER 2023-01-16 13:31 | Emergency (ER) | payer MEDICARE, MEDICAID, SELFPAY ==
[2023-01-16 13:32] VITALS: BP 124/93; PULSE 98; RESP 20; TEMP 35.8; O2SAT 100
--- NOTE | 2023-01-16 14:20 | RAD_ITS ---
STUDY: X-RAY CHEST REASON FOR EXAM: Female, 68 years old. 3 day history of shortness of breath and cough. TECHNIQUE: Single AP portable view of the chest. COMPARISON: Comparison is made with prior study dated January 14, 2023. FINDINGS: Mild increased markings at the lung bases suggests a mild degree of scarring. There is no demonstrated pleural abnormality. Normal size heart. Normal mediastinum and tracie. Normal visualized pulmonary arteries. There is atherosclerotic calcification of the aortic arch with tortuosity. There are diffuse degenerative changes of the visualized thoracic spine. Normal visualized ribs, clavicles, and shoulders. There is no demonstrated abnormality of the visualized soft tissue structures of the upper abdomen. RAD/Chest 1 View (Portable) IMPRESSION: Mild degree of increased markings at the lung bases. Electronically Signed: Bentley Montejo MD at 14:56 EDT ,
[2023-01-16 15:18] VITALS: BP 132/73; PULSE 87; RESP 20; TEMP 36.7; O2SAT 100; BMI 37.4
[2023-01-16 15:24] VITALS: O2SAT 100
[2023-01-16 15:47] LABS: Absolute Lymphocyte Count 1.01 X10^3/uL (0.83-4.51); Absolute Neutrophil Count 4.8 X10^3/uL (2.0-7.7); Basophil# 0.02 X10^3/uL; Basophil% 0.3 % (0-1); Eosinophil# 0.15 X10^3/uL; Eosinophils% 2.3 % (0-5); Hematocrit 44.3 % (37-47); Hemoglobin 13.7 g/dL (12.0-15.0); Lymphocyte # 1.01 X10^3/ul (0.83-4.51); Lymphocyte % 15.4 % (19-41); Mean Corp Hgb Conc 30.9 g/dL (32-36); Mean Corpuscular Hgb 30.6 pg (27.0-32.0); Mean Corpuscular Volume 98.9 fL (81-99); Mean Platelet Vol. 10.7 fl (6.2-12.0); Monocyte# 0.59 X10^3/uL; NRBC Flagged by Analyzer 0 % (0-5); Neutrophil # 4.75 X10^3/uL (2.7-7.7); Neutrophil % 72.5 % (47-70); Platelet Count 168 K/mm3 (150-450); RBC Distribution Width SD 54.6 fl (35.1-43.9); Red Blood Count 4.48 M/mm3 (4.2-5.4); White Blood Count 6.6 K/mm3 (4.4-11.0)
[2023-01-16 16:04] LABS: Anion Gap 1 (5-15); BUN 25 mg/dL (7-18); Calcium,Total 9.1 mg/dL (8.5-10.1); Chloride 107 mmol/L (98-107); Creatinine, Serum 1.19 mg/dL (0.55-1.02); EST Glomerular Filtration Rate 48 mL/min (>60); Est Glom Filt Rate - Afr Amer 58 mL/min (>60); Estimated Creatinine Clearance 34.14 ml/min; Glucose 112 mg/dL (74-106); Potassium 3.6 mmol/L (3.5-5.1); Sodium Level 137 mmol/L (136-145); Troponin-I HS 13 pg/mL (3.0-54.0)
--- NOTE | 2023-01-16 16:19 | ED.VIS.DYS ---
HPI History of Present Illness Chief Complaint: Shortness of Breath Narrative Narrative: 68-year-old female presenting with shortness of breath for the last 2 to 3 days. She reports that she saw Dr. Oliveira yesterday, however he only looked at her foot wound and did not express her shortness of breath. States he does not have a breathing machine but does have an albuterol inhaler that she uses at home. She thinks she might of been wheezing. No fevers or chills. No chest pain. Patient wearing her baseline 3 L of oxygen nasal cannula. She presents with her a very poor informant. Apparently she went to the doctor's visit with her grandson's girlfriend. Nobody else knows of what happened to the office appointment yesterday. PFSH [facility] Medical History Anemia Anxiety Anxiety Arthritis Atherosclerotic heart disease of [place] coronary artery without angina pectoris Back pain Broken rib Cancer Cardiology follow-up encounter Chronic kidney disease (CKD) stage G3b/A1, moderately decreased glomerular filtration rate (GFR) between 30-44 mL/min/1.73 square meter and albuminuria creatinine ratio less than 30 mg/g Chronic respiratory insufficiency Closed intertrochanteric fracture of left femur COPD (chronic obstructive pulmonary disease) DDD (degenerative disc disease) Diabetes Diabetes mellitus type 2 in obese Diabetic neuropathy Difficulty swallowing DVT (deep venous thrombosis) Essential hypertension Excessive bleeding Fall at home Former smoker Gastric reflux Gastroparesis Gastroparesis GERD (gastroesophageal reflux disease) High cholesterol History of cervical cancer History of CHF (congestive heart failure) History of diverticulitis History of DVT (deep vein thrombosis) History of edema History of heart attack History of Holter monitoring History of IBS History of renal disease History of stress test Hypothyroidism Injury of back Insulin dependent diabetes mellitus Lung nodule Migraine headache Mixed hyperlipidemia On home oxygen therapy PARESH (obstructive sleep apnea) Paroxysmal A-fib Paroxysmal atrial fibrillation Post-menopausal Presence of stent in coronary artery (~12/07/03) Pulmonary embolism Pulmonary embolism Pulmonary hypertension RLS (restless legs syndrome) Sleep apnea Thyroid disease Tinnitus Uses wheelchair Walker as ambulation aid Wears dentures Wears glasses Wears hearing aid Home Medications atorvastatin 40 mg tablet 40 mg PO QHS CHOLESTEROL LOWERING 02/03/18 [History Last Taken 12/17/22] levothyroxine 100 mcg tablet 100 mcg PO DAILY THYROID 02/03/18 [History Last Taken 12/18/22] ascorbic acid (vitamin C) 500 mg tablet 500 mg PO DAILY@1700 supplement 05/17/18 [History Last Taken 12/17/22] aspirin 81 mg tablet,delayed release 81 mg PO DAILY@1700 Heart 09/02/18 [History Last Taken 12/17/22] potassium chloride 10 mEq tablet,extended release 10 meq PO DAILY supplement 06/08/19 [History Last Taken 12/17/22] allopurinol 100 mg tablet 100 mg PO DAILY gout 08/11/19 [History Last Taken 12/17/22] furosemide 20 mg tablet 20 mg PO BID FLUID 10/25/20 [History Last Taken 12/17/22] omeprazole 40 mg capsule,delayed release 40 mg PO DAILY GERD 10/25/20 [History Last Taken 12/18/22] cholecalciferol (vitamin D3) 50 mcg (2,000 unit) capsule 2,000 unit PO DAILY SUPPLEMENT 12/13/20 [History Last Taken 12/17/22] buspirone 10 mg tablet 10 mg PO TID depression 06/12/22 [History Last Taken 12/17/22] duloxetine 60 mg capsule,delayed release 60 mg PO DAILY MENTAL HEALTH 06/12/22 [History Last Taken 12/17/22] fexofenadine 180 mg tablet 180 mg PO DAILY ALLERGIES 06/12/22 [History Last Taken 12/17/22] insulin glargine 100 unit/mL (3 mL) subcutaneous pen (Lantus Solostar U-100 Insulin) 42 unit subcut BID DM 06/12/22 [History Last Taken 12/17/22] insulin lispro 100 unit/mL subcutaneous pen 16 unit subcut BREAKFAST DIABETES 06/12/22 [History Last Taken 12/17/22] insulin lispro 100 unit/mL subcutaneous pen 20 unit subcut LUNCH DIABETES 06/12/22 [History Last Taken 12/17/22] insulin lispro 100 unit/mL subcutaneous pen 24 unit subcut DINNER DIABETES 06/12/22 [History Last Taken 12/17/22] sodium chloride 0.65 % nasal spray aerosol (Saline Mist) 2 spray intranasal DAILY ALLERGIES 06/12/22 [History Last Taken 12/17/22] nitroglycerin 0.4 mg sublingual tablet 0.4 mg sublingual Q5-15M PRN chest pain #25 tabs 10/21/22 [Rx Last Taken 12/17/22] apixaban 2.5 mg tablet 2.5 mg PO BID Blood thinner 11/12/22 [History Last Taken 12/15/22] albuterol sulfate 90 mcg/actuation aerosol inhaler 1 - 2 puff inhalation PRN PRN COPD 12/12/22 [History Last Taken 12/17/22] amlodipine 5 mg tablet 5 mg PO DAILY BP 12/12/22 [History Last Taken 12/18/22] ferrous sulfate 325 mg (65 mg iron) tablet 325 mg PO DAILY SUPPLEMENT 12/12/22 [History Last Taken 12/17/22] isosorbide mononitrate 120 mg tablet,extended release 24 hr 120 mg PO DAILY HEART 12/12/22 [History Last Taken 12/18/22] acetaminophen 500 mg tablet 1,000 mg PO Q8 #0 tabs 12/18/22 [Rx Last Taken Unknown] oxycodone 5 mg tablet 5 - 10 mg PO Q4H PRN PRN Pain Score 4-10/10 5 days #60 tabs 12/18/22 [Rx Last Taken Unknown] metoprolol tartrate 100 mg tablet 100 mg PO BID Heart Rate #60 tabs 12/27/22 [Rx Last Taken Unknown] doxycycline hyclate 100 mg capsule 100 mg PO BID #20 caps 01/03/23 [Rx Last Taken Unknown] codeine 6.3 mg-guaifenesin 100 mg/5 mL oral liquid 10 ml PO 4X/DAY PRN PRN cough 5 days #200 mL 01/14/23 [Rx Last Taken Unknown] Allergy/AdvReac Type Severity Reaction Status Date / Time ciprofloxacin [From Cipro] Allergy Hives Verified 01/16/23 13:35 latex Allergy matos me Verified 01/16/23 13:35 niacin Allergy Hives Verified 01/16/23 13:35 [From Niaspan Extended-Release] ondansetron [From Zofran] Allergy Unknown Verified 01/16/23 13:35 ranolazine [From Ranexa] Allergy Itching Verified 01/16/23 13:35 Xanthines Allergy Unknown Verified 01/16/23 13:35 adhesive tape AdvReac Other Verified 01/16/23 13:35 orphenadrine citrate AdvReac groggy Verified 01/16/23 13:35 [From Norgesic] Family History Mother CAD (coronary artery disease) Father CAD (coronary artery disease) Brother CAD (coronary artery disease) Asthma Sister Hypertension Sister Diabetes Sister Heart disease Surgical History History of cardiac catheterization History of cholecystectomy History of coronary artery stent placement History of hernia repair History of knee surgery History of left heart catheterization (LHC) (~09/28/19) History of nasal surgery History of surgery on wrist History of total abdominal hysterectomy History of tubal ligation Hx of surgical procedure Presence of coronary angioplasty implant and graft (~12/07/03) Social History Smoking Status: Former smoker alcohol intake: never substance use type: does not use caffeine: Yes Type: coffee Number of servings: 1 ROS ROS ED Constitutional Constitutional ED: Denies chills or fever(s) Eyes Eyes: Denies change in vision or diplopia ENT ENT ED: Denies rhinorrhea or sore throat Cardiovascular Cardiovascular: Denies chest pain or palpitations Respiratory/Chest Respiratory/Chest: Reports dyspnea Gastrointestinal Gastrointestinal: Denies abdominal pain, constipation or diarrhea Genitourinary Genitourinary ED: Denies dysuria or hematuria Musculoskeletal Musculoskeletal: Denies arthralgias or back pain Integumentary Denies abscess or Abrasions Neurologic Neurologic: Denies headache(s) or paresthesias EXAM Physical Exam Const Vital Signs: 01/16/23 13:32 01/16/23 15:18 01/16/23 15:18 Temperature 96.5 F L 98.0 F 98.0 F Temperature Source Temporal Temporal Temporal Pulse Rate 98 87 87 Respiratory Rate 20 H 20 H 20 H Respiratory Effort Respiratory Depth Respiratory Pattern Blood Pressure 124/93 H 132/73 H 132/73 H Blood Pressure Mean 103 92 92 Pulse Ox 100 100 100 Oxygen Delivery Method Nasal Cannula Nasal Cannula Nasal Cannula Oxygen Flow Rate (L/min) 3 3 3 01/16/23 15:18 01/16/23 15:18 01/16/23 15:24 Temperature Temperature Source Pulse Rate Respiratory Rate 20 H Respiratory Effort Normal Non-Labored Respiratory Depth Normal Respiratory Pattern Normal Blood Pressure Blood Pressure Mean Pulse Ox 100 100 Oxygen Delivery Method Nasal Cannula Nasal Cannula Nasal Cannula Oxygen Flow Rate (L/min) 3 3 3 01/16/23 17:09 01/16/23 17:09 01/16/23 18:14 Temperature 97.8 F Temperature Source Temporal Pulse Rate 109 H 95 95 Respiratory Rate 18 18 Respiratory Effort Respiratory Depth Respiratory Pattern Blood Pressure 141/63 H 141/63 H Blood Pressure Mean 89 Pulse Ox 98 100 Oxygen Delivery Method Nasal Cannula Oxygen Flow Rate (L/min) 3 Positive well nourished General Appearance ED: NAD HEENT Reports moist mucous membranes Eyes PERRL and EOMs intact bilaterally Neck no lymphadenopathy and supple Resp normal respiratory effort Auscultation: Negative for wheezes Cardio regular rate and regular rhythm GI non-tender Neuro oriented x3 and CN's II-XII intact bilaterally Sensorium / Orientation: alert Psych mental status grossly normal MDM MDM MDM Narrative Medical decision making narrative: Patient presenting shortness of breath for last 2 to 3 days. She is wearing her baseline oxygen at 2 to 3 L. Patient denies any chest pain but does admit to a little bit of shortness of breath and a cough. Differential diagnosis includes bacterial pneumonia, viral pneumonia, COPD exacerbation, ACS. CBC to assess white blood cell count, hemoglobin, differential. BMP to assess renal function, electrolytes, glucose, anion gap. High-sensitivity troponin will be obtained as well as EKG to assess for cardiac etiology. Chest x-ray will also be obtained. CBC shows no leukocytosis with white blood cell 6.6. Hemoglobin 13.7, hematocrit 44.3. Platelets 168. Creatinine 1.19 and near baseline. Glucose 112. No anion gap. Electrolytes unremarkable. High-sensitivity troponin is 13. Chest x-ray my interpretation shows no acute cardiopulmonary process. Radiology interprets this and agrees. Patient was ambulated with pulse ox and a walker and maintained normal pulse ox. Patient's family was counseled that when she goes to her doctor's appointment she should likely have family with her as she is having memory issues and she is a poor informant on her medical care. I think this would benefit her in the long run to have somebody involved in her care. At this point I do not have any reason to keep the patient in the hospital. I recommend follow-up with Dr. Valdovinos. Return precautions were discussed. Impression: 1. Dyspnea Lab Data Labs: Laboratory Results - last 24 hr 01/16/23 01/16/23 01/16/23 15:40 15:40 17:05 WBC 6.6 RBC 4.48 Hgb 13.7 Hct 44.3 MCV 98.9 MCH 30.6 MCHC 30.9 L RDW Std Deviation 54.6 H RDW Coeff of [place] 15.0 H Plt Count 168 MPV 10.7 Immature Gran % (Auto) 0.500 Neut % (Auto) 72.5 H Lymph % (Auto) 15.4 L [place] % (Auto) 9.0 Eos % (Auto) 2.3 Baso % (Auto) 0.3 Absolute Neuts (auto) 4.8 Absolute Lymphs (auto) 1.01 Nucleated RBC % 0 Sodium 137 Potassium 3.6 Chloride 107 Carbon Dioxide 29.0 Anion Gap 1 L BUN 25 H Creatinine 1.19 H Estim Creat Clear Calc 34.14 Est GFR (MDRD) Af Amer 58 L Est GFR (MDRD) Non-Af 48 L BUN/Creatinine Ratio 21.0 H Glucose 112 H Calcium 9.1 Troponin I High Sens 13 Urine Color Yellow Urine Clarity Clear Urine pH 6.0 Ur Specific [place] 1.015 Urine Protein 30 H Urine Glucose (UA) Normal Urine Ketones Negative Urine Occult Blood 10 H Urine Nitrite Negative Urine Bilirubin Negative Urine Urobilinogen Normal Ur Leukocyte Esterase 25 H Urine RBC 0 SEEN Urine WBC 0-5 SEEN Ur Squamous Epith Cells 0 SEEN Urine Bacteria 1+ Urine Mucus 0 SEEN Radiography Diagnostic Testing: Clinical Impression(s) from Imaging Studies Chest X-Ray 01/16/23 14:20 IMPRESSION: Mild degree of increased markings at the lung bases. Electronically Signed: Bentley Montejo MD at 14:56 EDT , Discharge Plan Triage Chief Complaint: Shortness of Breath ED Provider: Alex Regalado Dx/Rx/DC Orders Instructions: ED Dyspnea Prescriptions: No Action potassium chloride 10 mEq tablet extended release 10 meq PO DAILY Hold Instructions: until lasix restarted allopurinol 100 mg tablet 100 mg PO DAILY buspirone 10 mg tablet 10 mg PO TID Rx Instructions: 10mg bid and 15mg QS Saline Mist 0.65 % aerosol,spray 2 spray intranasal DAILY atorvastatin 40 MG tablet 40 mg PO QHS Label Comments: cholesterol levothyroxine 100 MCG tablet 100 mcg PO DAILY Label Comments: thyroid duloxetine 60 mg capsule,delayed release(DR/EC) 60 mg PO DAILY Label Comments: mental health ascorbic acid (vitamin C) 500 MG tablet 500 mg PO DAILY@1700 Label Comments: Supplement aspirin 81 MG tablet 81 mg PO DAILY@1700 Label Comments: STOP 5 DAYS PRIOR TO OR fexofenadine 180 mg tablet 180 mg PO DAILY omeprazole 40 MG capsule,delayed release(DR/EC) 40 mg PO DAILY furosemide 20 MG tablet 20 mg PO BID Hold Instructions: hold until BP will allow reinitiation cholecalciferol (vitamin D3) 50 MCG capsule 2,000 unit PO DAILY insulin glargine [Lantus Solostar U-100 Insulin] 100 unit/mL (3 mL) insulin pen 42 unit SC BID insulin lispro 100 unit/mL insulin pen 16 unit SC BREAKFAST insulin lispro 100 unit/mL insulin pen 20 unit SC LUNCH insulin lispro 100 unit/mL insulin pen 24 unit SC DINNER ferrous sulfate 325 mg (65 mg iron) Tablet 325 mg PO DAILY amlodipine 5 mg tablet 5 mg PO DAILY isosorbide mononitrate 120 mg tablet extended release 24 hr 120 mg PO DAILY albuterol sulfate 90 mcg/actuation HFA aerosol inhaler 1 - 2 puff INHALATION PRN PRN (Reason: COPD) acetaminophen 500 mg Tablet 1,000 mg PO Q8 Qty: 0 0RF oxycodone 5 mg Tablet 5 - 10 mg PO Q4H PRN PRN (Reason: Pain Score 4-10/10) 5 Days Qty: 60 0RF doxycycline hyclate 100 mg capsule 100 mg PO BID Qty: 20 0RF codeine-guaifenesin 6.3-100 mg/5 mL liquid 10 ml PO 4X/DAY PRN PRN (Reason: cough) 5 Days Qty: 200 0RF nitroglycerin 0.4 mg tablet, sublingual 0.4 mg sublingual Q5-15M PRN (Reason: chest pain) Qty: 25 3RF apixaban 2.5 mg tablet 2.5 mg PO BID Label Comments: .Blood thinner- LAST DOSE 3-4 DAYS PRIOR, PT HAS WRITTEN ON PAPER metoprolol tartrate 100 mg tablet 100 mg PO BID Qty: 60 11RF Primary Care Provider: Bhupendra Oliveira Referrals: Bhupendra Oliveira MD [Primary Care Provider] - Disposition Disposition: Home, Self Care Discharge Date/Time: 01/16/23 18:34
--- NOTE | 2023-01-16 16:23 | EKG12_ITS ---
Test Reason : SOB Blood Pressure : / mmHG Vent. Rate : 104 BPM Atrial Rate : 000 BPM P-R Int : 000 ms QRS Dur : 080 ms QT Int : 344 ms P-R-T Axes : 000 -18 188 degrees QTc Int : 452 ms Atrial fibrillation with rapid ventricular response ST & T wave abnormality, consider inferolateral ischemia Abnormal ECG Confirmed by ANGELES ABRAHAM, ALANA ([id number]), research editor MAUREEN YAÑEZ ([id number]) on 01/20/2023 11:41:25 AM Referred By: GUERITA Confirmed By:BERNARD REYNOSO MD
[2023-01-16 17:09] VITALS: BP 141/63; PULSE 109; PULSE 95; RESP 18; TEMP 36.6; O2SAT 98
[2023-01-16 17:15] LABS: Mucous, Urine 0 SEEN /hpf (<or=2+); Red Blood Cells-Urine 0 SEEN /hpf (0-5); Squamous Epithelial Cells - UA 0 SEEN /hpf (5-10)
[2023-01-16 17:41] VITALS: O2SAT 100
[2023-01-16 18:02] LABS: Color, Urine Yellow (Yellow); Glucose, Dipstick Normal (Normal); Ketone-Dipstick Negative (Negative); Leukocyte Esterase-Dipstick 25 /ul (Negative); Nitrite-Dipstick Negative (Negative); Occult Blood-Urine 10 /ul (Negative); Protein-Dipstick 30 mg/dl (Negative); Specific Gravity, Urine 1.015 (1.002-1.030); Urine Bilirubin Dipstick Negative (Negative); Urine Clarity Clear (Clear); Urine Urobilinogen Normal (Normal)
[2023-01-16 18:13] LABS: Bacteria 1+ /hpf (None Seen); White Blood Cells 0-5 SEEN /hpf (0-5)
[2023-01-16 18:14] VITALS: BP 141/63; PULSE 95; RESP 18; O2SAT 100
== END 2023-01-16 18:34 | disposition home or self-care (01) ==
PROVIDERS: Emergency Provider Student in an Organized Health Care Education/Training Program; PCP Family Medicine; Visit Provider Student in an Organized Health Care Education/Training Program
DX: R06.00 Dyspnea, unspecified (principal); J44.9 Chronic obstructive pulmonary disease, unspecified; I13.0 Hypertensive heart and chronic kidney disease with heart failure and stage 1 through stage 4 chronic kidney disease, or unspecified chronic kidney disease; I50.9 Heart failure, unspecified; E11.22 Type 2 diabetes mellitus with diabetic chronic kidney disease; E11.40 Type 2 diabetes mellitus with diabetic neuropathy, unspecified; I48.0 Paroxysmal atrial fibrillation; Z79.4 Long term (current) use of insulin; N18.32 Chronic kidney disease, stage 3b; E78.00 Pure hypercholesterolemia, unspecified; I25.10 Atherosclerotic heart disease of native coronary artery without angina pectoris; I25.2 Old myocardial infarction; Z99.81 Dependence on supplemental oxygen; Z79.82 Long term (current) use of aspirin; Z79.890 Hormone replacement therapy; Z79.899 Other long term (current) drug therapy; Z87.891 Personal history of nicotine dependence; Z95.5 Presence of coronary angioplasty implant and graft
CPT/HCPCS: 71045; 80048; 81001; 84484; 85025; 87428; 93005; 94760; 99284

== ENCOUNTER 2023-02-07 12:32 | Outpatient (RCR) | payer MEDICARE, MEDICAID, SELFPAY ==
--- NOTE | 2023-02-07 13:28 | HP.PTEVAL_ITS ---
Patient's Visit Information RUI PANDA is a 68 year old F referred to Physical Therapy by Dr. Vahid Chowdhury MD with a diagnosis of L hip prosthesis, hip fracture.. Date of Evaluation: 02/07/23 Physical Therapist: Zuhair Toledo, DPT, OCS, CSCS - Visit Plan Frequency: 2x /Week Duration: 4-6 Weeks Plan: 2x/week for 4-6 weeks for. 1. LE hip and knee L strength ex to HEP. 2. Gait with wh walker for distance and balance and WB L /pregait without wh walker as able, progress gait. 3. MH for pain if needed, PROM to L hip - Subjective Dtr in law present today. I have a broken L hip after falling in house back in August 03. Fell because she tripped on a threshold. I was using cane at that time. Went to ER and set up surgery that night, Had screws and rods placed. Not doing whole lot since then. Also has bad cartilage in knees and is bone on bone. Had home therapy. Has been walking with wh walker just short distances. Was also in [facility] for while into august for 3 weeks. Has WC at home. Uses it to go out. December 18 took screws out because bones were soft. Spends day at home on bed or chair. Goes to bathroom herself. Exercises: none. :Needs help dressing especially on shoes, hard to move L leg. bathroom I. [employer] in shower which is walk in to shower chair. Not employed. Enjoys watching TV. Loves the gardening, can't right now. had DM and neuropathy in feet. - Pain L LE Pain Intensity (Out of 10): 0 Pain Intensity Range: 0, 9 - Objective Pushed back by dtr in law in hospital WC. Sit to stand with UE to wh walker, I. Stands without ad I 60 seconds, unable to march with weight through L due to pain/weakness that is transient. Stand to sit I. O2 on and has bag to carry it. Posture is much kyphosis in thoraci cpsine nearly 90 degrees and has to extend cervical to see in fornt, tends to look down. UE aROM WFL and strength at 4-. Turns at wh walker 180 degrees mod I, Walks 60 feet today and very tired, obviously weak on L side and relying on arms, not a funcitonal walker without wh walker. LE AROM WFL except L hip to 0 ext, 90 flexion., knee is 0- 100, ankles WFL. Strength is 3 in L hip abd and ext and flexion, 3+ on R, very weka. knee ext 3 R and 4- L, HS 4- L and 4 R. ankles are 4 thorughout. Sensation is diminished in ankles and feet likely neuroapthy to gross light touch. 1/3 patella and achilles reflexes. - Balance/Special Test Scores Lower Extremity Functional Score: 10 TUG Test Time Seconds: 50 30 Second Chair Rise Test Seconds: 2 - Goals Goal 1:: Stand and walk 100 feet with wh walker mod I without increased pain or fatigue Goal Time Frame: 4-6 Weeks Goal 2:: patient report 50% improvement in pain to 2/10 at owrst Goal Time Frame: 4-6 Weeks Goal 3:: I appropriate HEP for hip and knee strength adn circulation with help of family to manage Goal Time Frame: 4-6 Weeks Goal 4:: LEFS score 30 Goal Time Frame: 4-6 Weeks - Rehabilitation Potential Physical Therapy Diagnosis: L hip pain and weakness limiting mobility. Rehabilitation Potential: Questionable - Anticipated Interventions Patient/Client Instruction: Educate patient on: Condition, Plan of Care For the Purpose of:: To decrease pain, To increase ROM, To improve muscle performance and motor function, To increase tolerance to activity/condition/position Therapeutic Exercise to Include: Strength training, Postural training, Flexibilty training, Gait and locomotor training, Passive ROM, Active ROM For the Purpose of:: To improve muscle performance and motor function, To increase tolerance to activity/condition/position, To improve ability of physical actions for home/community/work/leisure, To improve gait and locomotor functions Thank you for the opportunity to evaluate your patient. For Medicare and Medicare HMO plans, please review the plan of care and approve it. It will need to be FAXED BACK to us at [phone] for Medicare purposes. For Medicare only, by signing this I certify the plan of care. Please let me know if there are questions or concerns regarding this plan of care. Physician Signature: Date:
--- NOTE | 2023-04-01 09:43 | HP.PT.NRP ---
Patient Information Patient Information: RUI PANDA was seen in my office for initial evaluation on 02/07/23. The following Plan of Care was established for this patient: POC Established Initial Frequency: 2x /Week Initial Duration: 4-6 Weeks Anticipated Interventions Patient/Client Instruction: Educate patient on: Condition and Plan of Care For the Purpose of:: To decrease pain, To increase ROM, To improve muscle performance and motor function and To increase tolerance to activity/condition/position Therapeutic Exercise to Include: Strength training, Postural training, Flexibilty training, Gait and locomotor training, Passive ROM and Active ROM For the Purpose of:: To improve muscle performance and motor function, To increase tolerance to activity/condition/position, To improve ability of physical actions for home/community/work/leisure and To improve gait and locomotor functions Last Seen Last Seen: This patient was last seen in our office 02/07/23. Pertinent comments regarding their Physical therapy will appear below: Pt seen for IE and then cancelled and no showed the next couple visits and not rescheduled. At this point, it has been over 6 weeks and I will discontinue from my care. At this point I will be discontinuing this patient from physical therapy. I would be happy to see this patient again in the future if found appropriate by the physician. Thank you! Zuhair Toledo, DPT, OCS, CSCS Balance/Gait/Functional tests Balance/Special Test Scores Lower Extremity Functional Score: 10 TUG Test Time Seconds: 50 30 Second Chair Rise Test Seconds: 2
== END 2023-02-07 19:00 | disposition home or self-care (01) ==
LOC: PT 12:32
PROVIDERS: PCP Family Medicine; Referring Provider Specialist; Visit Provider Specialist
DX: S72.142D Displaced intertrochanteric fracture of left femur, subsequent encounter for closed fracture with routine healing (principal); T84.091D Other mechanical complication of internal left hip prosthesis, subsequent encounter
CPT/HCPCS: 97110; 97162

== ENCOUNTER 2023-04-23 17:57 | Emergency (ER) | payer MEDICARE, MEDICAID, SELFPAY ==
[2023-04-23] VITALS (10 sets, daily range): BP systolic 110–158; BP diastolic 70–92; PULSE 75–89; RESP 16–163; TEMP 36.4; O2SAT 98–100; BMI 37.6
--- NOTE | 2023-04-23 18:24 | EKG12_ITS ---
Test Reason : DYSRHYTHMIA Blood Pressure : / mmHG Vent. Rate : 079 BPM Atrial Rate : 300 BPM P-R Int : 000 ms QRS Dur : 074 ms QT Int : 392 ms P-R-T Axes : 000 -19 109 degrees QTc Int : 449 ms Atrial fibrillation with premature ventricular or aberrantly conducted complexes Nonspecific T wave abnormality Abnormal ECG Confirmed by ANGELES ABRAHAM, ALANA ([id number]), manuscript editor MAUREEN YAÑEZ ([id number]) on 04/25/2023 1:29:31 PM Referred By: JUAN Confirmed By:BERNARD REYNOSO MD
--- NOTE | 2023-04-23 18:25 | EDS_ITS ---
HPI History of Present Illness Chief Complaint: Chest Pain Detail of Chief Complaint: Chest pain Informant: patient Narrative Narrative: Patient presents with chest pain that started initially 4 nights ago. Patient states that she took 2 nitro the initial night and it took a while but her pain eased off a little when she was able to fall asleep. She mostly has had continuous discomfort that she describes as pressure that at times will radiate to her neck and she is also had a radiate to her right arm. Patient feels somewhat short of breath with it. She is normally on 3 L of home O2. Patient states last time she felt this way she had a heart attack. She had a cardiac stent placed in 2003. She thinks maybe her last heart cath was a couple years ago and did not require any type of intervention. Patient denies recent travel or surgery. She is on Eliquis. Patient with history of paroxysmal A-fib. [facility] Medical History Anemia Anxiety Anxiety Arthritis Atherosclerotic heart disease of [place] coronary artery without angina pectoris Back pain Broken rib Cancer Cardiology follow-up encounter Chronic kidney disease (CKD) stage G3b/A1, moderately decreased glomerular filtration rate (GFR) between 30-44 mL/min/1.73 square meter and albuminuria creatinine ratio less than 30 mg/g Chronic respiratory insufficiency Closed intertrochanteric fracture of left femur COPD (chronic obstructive pulmonary disease) DDD (degenerative disc disease) Diabetes Diabetes mellitus type 2 in obese Diabetic neuropathy Difficulty swallowing DVT (deep venous thrombosis) Essential hypertension Excessive bleeding Fall at home Former smoker Gastric reflux Gastroparesis Gastroparesis GERD (gastroesophageal reflux disease) High cholesterol History of cervical cancer History of CHF (congestive heart failure) History of diverticulitis History of DVT (deep vein thrombosis) History of edema History of heart attack History of Holter monitoring History of IBS History of renal disease History of stress test Hypothyroidism Injury of back Insulin dependent diabetes mellitus Lung nodule Migraine headache Mixed hyperlipidemia On home oxygen therapy PARESH (obstructive sleep apnea) Paroxysmal A-fib Paroxysmal atrial fibrillation Post-menopausal Presence of stent in coronary artery (~12/07/03) Pulmonary embolism Pulmonary embolism Pulmonary hypertension RLS (restless legs syndrome) Sleep apnea Thyroid disease Tinnitus Uses wheelchair Walker as ambulation aid Wears dentures Wears glasses Wears hearing aid Home Medications atorvastatin 40 mg tablet 40 mg PO QHS CHOLESTEROL LOWERING 02/03/18 [History Last Taken 12/17/22] levothyroxine 100 mcg tablet 100 mcg PO DAILY THYROID 02/03/18 [History Last Taken 12/18/22] ascorbic acid (vitamin C) 500 mg tablet 500 mg PO DAILY@1700 supplement 05/17/18 [History Last Taken 12/17/22] aspirin 81 mg tablet,delayed release 81 mg PO DAILY@1700 Heart 09/02/18 [History Last Taken 12/17/22] potassium chloride 10 mEq tablet,extended release 10 meq PO DAILY supplement 06/08/19 [History Last Taken 12/17/22] allopurinol 100 mg tablet 100 mg PO DAILY gout 08/11/19 [History Last Taken 12/17/22] furosemide 20 mg tablet 20 mg PO BID FLUID 10/25/20 [History Last Taken 12/17/22] omeprazole 40 mg capsule,delayed release 40 mg PO DAILY GERD 10/25/20 [History Last Taken 12/18/22] cholecalciferol (vitamin D3) 50 mcg (2,000 unit) capsule 2,000 unit PO DAILY SUPPLEMENT 12/13/20 [History Last Taken 12/17/22] buspirone 10 mg tablet 10 mg PO TID depression 06/12/22 [History Last Taken 12/17/22] duloxetine 60 mg capsule,delayed release 60 mg PO DAILY MENTAL HEALTH 06/12/22 [History Last Taken 12/17/22] fexofenadine 180 mg tablet 180 mg PO DAILY ALLERGIES 06/12/22 [History Last Taken 12/17/22] insulin glargine 100 unit/mL (3 mL) subcutaneous pen (Lantus Solostar U-100 Insulin) 54 unit subcut BID DM 06/12/22 [History Last Taken 12/17/22] insulin lispro 100 unit/mL subcutaneous pen 14 unit subcut BREAKFAST DIABETES 06/12/22 [History Last Taken 12/17/22] insulin lispro 100 unit/mL subcutaneous pen 20 unit subcut LUNCH DIABETES 06/12/22 [History Last Taken 12/17/22] insulin lispro 100 unit/mL subcutaneous pen 24 unit subcut DINNER DIABETES 06/12/22 [History Last Taken 12/17/22] sodium chloride 0.65 % nasal spray aerosol (Saline Mist) 2 spray intranasal TID PRN ALLERGIES 06/12/22 [History Last Taken 12/17/22] nitroglycerin 0.4 mg sublingual tablet 0.4 mg sublingual Q5-15M PRN chest pain #25 tabs 10/21/22 [Rx Last Taken 12/17/22] apixaban 2.5 mg tablet 2.5 mg PO BID Blood thinner 11/12/22 [History Last Taken 12/15/22] albuterol sulfate 90 mcg/actuation aerosol inhaler 1 - 2 puff inhalation PRN PRN COPD 12/12/22 [History Last Taken 12/17/22] amlodipine 5 mg tablet 5 mg PO DAILY BP 12/12/22 [History Last Taken 12/18/22] ferrous sulfate 325 mg (65 mg iron) tablet 325 mg PO DAILY SUPPLEMENT 12/12/22 [History Last Taken 12/17/22] isosorbide mononitrate 120 mg tablet,extended release 24 hr 120 mg PO DAILY HEART 12/12/22 [History Last Taken 12/18/22] acetaminophen 500 mg tablet 1,000 mg (2 x 500 mg) PO Q8 #0 tabs 12/18/22 [Rx Last Taken Unknown] oxycodone 5 mg tablet 5 - 10 mg (1 - 2 x 5 mg) PO Q4H PRN PRN Pain Score 4-10/10 5 days #60 tabs 12/18/22 [Rx Last Taken Unknown] metoprolol tartrate 100 mg tablet 100 mg PO BID Heart Rate #60 tabs 12/27/22 [Rx Last Taken Unknown] Allergy/AdvReac Type Severity Reaction Status Date / Time ciprofloxacin [From Cipro] Allergy Hives Verified 04/23/23 17:59 latex Allergy matos me Verified 04/23/23 17:59 niacin Allergy Hives Verified 04/23/23 17:59 [From Niaspan Extended-Release] ranolazine [From Ranexa] Allergy Itching Verified 04/23/23 17:59 adhesive tape AdvReac Other Verified 04/23/23 17:59 orphenadrine citrate AdvReac groggy Verified 04/23/23 17:59 [From Norgesic] Family History Mother CAD (coronary artery disease) Father CAD (coronary artery disease) Brother CAD (coronary artery disease) Asthma Sister Hypertension Sister Diabetes Sister Heart disease Surgical History History of cardiac catheterization History of cholecystectomy History of coronary artery stent placement History of hernia repair History of knee surgery History of left heart catheterization (LHC) (~09/28/19) History of nasal surgery History of surgery on wrist History of total abdominal hysterectomy History of tubal ligation Hx of surgical procedure Presence of coronary angioplasty implant and graft (~12/07/03) Social History Smoking Status: Former smoker alcohol intake: never substance use type: does not use caffeine: Yes Type: coffee Number of servings: 1 ROS ROS ED Review of Systems ROS Unobtainable: other Constitutional Constitutional ED: Reports lethargy; Denies chills, fever(s), sweats or weight loss Eyes Eyes: Denies blurry vision, change in vision or diplopia ENT ENT ED: Denies rhinorrhea or sore throat Cardiovascular Cardiovascular: Reports chest pain; Denies orthopnea or racing heartbeat Respiratory/Chest Respiratory/Chest: Reports dyspnea and dyspnea on exertion; Denies cough, orthopnea or sputum Gastrointestinal Gastrointestinal: Denies abdominal pain, diarrhea, nausea or vomiting Genitourinary Genitourinary ED: Denies dysuria, hematuria or urinary frequency Musculoskeletal Musculoskeletal: Denies arthralgias, back pain, myalgias or neck pain Integumentary Denies abscess, Abrasions or rash Neurologic Neurologic: Denies headache(s) or weakness Psychiatric Psychiatric: Denies anxiety, depression or suicidal thoughts Endocrine Endocrinology: Denies polydipsia, polyphagia or polyuria Hematologic/Lymphatic Hematologic/Lymphatic: Denies easy bleeding, easy bruising or lymphadenopathy Allergic/Immunologic Allergic/Immunologic ED: Denies mouth swelling, tongue swelling or urticaria EXAM Physical Exam Const Vital Signs: 04/23/23 17:59 04/23/23 18:24 04/23/23 18:24 Temperature 97.6 F L Temperature Source Temporal Pulse Rate 77 Respiratory Rate 18 Respiratory Effort Normal Non-Labored Respiratory Pattern Normal Blood Pressure 127/88 H Blood Pressure Mean 101 Pulse Ox 99 99 Oxygen Delivery Method Nasal Cannula Nasal Cannula Oxygen Flow Rate (L/min) 3 3 04/23/23 19:06 04/23/23 18:58 04/23/23 19:00 Temperature Temperature Source Pulse Rate 86 76 76 Respiratory Rate 19 H 19 H Respiratory Effort Respiratory Pattern Blood Pressure 140/88 H 140/88 H 140/88 H Blood Pressure Mean 105 105 Pulse Ox 100 100 Oxygen Delivery Method Nasal Cannula Nasal Cannula Oxygen Flow Rate (L/min) 3 3 04/23/23 19:21 04/23/23 19:22 04/23/23 20:00 Temperature Temperature Source Pulse Rate 75 83 89 Respiratory Rate 16 163 H Respiratory Effort Respiratory Pattern Blood Pressure 125/85 H 125/85 H 113/70 Blood Pressure Mean 98 84 Pulse Ox 100 99 Oxygen Delivery Method Nasal Cannula Nasal Cannula Oxygen Flow Rate (L/min) 3 2 04/23/23 22:09 Temperature Temperature Source Pulse Rate 87 Respiratory Rate 17 Respiratory Effort Respiratory Pattern Blood Pressure 110/78 Blood Pressure Mean 88 Pulse Ox 98 Oxygen Delivery Method Nasal Cannula Oxygen Flow Rate (L/min) 3 Positive well nourished and well developed General Appearance ED: well developed and NAD HEENT Reports TM's clear and moist mucous membranes normocephalic and atraumatic; Negative for trauma or tenderness Tympanic Membrane ED: Yes TM's clear Eyes PERRL and EOMs intact bilaterally General Eye ED: Negative for pale conjunctiva or scleral icterus Neck no lymphadenopathy, supple and no JVD General: Negative for tenderness Chest Wall inspection of chest normal and palpation of chest normal Chest: Negative for tenderness Resp normal respiratory effort and clear to auscultation bilaterally Effort and Inspection: Negative for respiratory distress or pain with movement Auscultation: Negative for rhonchi, wheezes or diminished lung sounds Cardio regular rate, regular rhythm, S1 normal heart sound, S2 normal heart sound and no murmurs Peripheral Pulses: pulses 2+ throughout GI normal to inspection, nondistended, normoactive bowel sounds, soft to palpation, non-tender, non-distended and no masses Back/Spine no CVA tenderness and no thoracic nor lumbar tenderness Extremity Extremity Narrative: +1 edema both lower extremities General Extremety ED: Negative for edema General Extremity: Negative for edema Neuro oriented x3, CN's II-XII intact bilaterally, no sensory deficits noted and gait normal Sensorium / Orientation: awake, alert, oriented to person, oriented to place and oriented to time Motor Exam: strength 5/5 throughout and strength abnormal Psych mental status grossly normal Skin no rashes or lesions noted and no wounds Heart Score History: Highly Suspicious ECG: Nonspecific Repolarization Age: >/= 65 years Risk Factors: >/= 3 Risk Factors or History of CAD Troponin: </= Normal Limit Score: 7 MDM MDM MDM Narrative Medical decision making narrative: PressurePatient presents with chest pain or x4 nights. Pains been continuous. IV line will be established. Patient will be placed on a explosive man. EKG will be obtained. Lab work-up will be obtained. Patient will be given nitroglycerin for pain. Patient EKG obtained showed atrial fibrillation with a ventricular rate of [address] changes. CBC with differential unremarkable. Chemistries unremarkable. Troponin was normal at 9. Patient was given nitroglycerin sublingually which seemed to improve her pain somewhat. Did not completely resolve it. Initially I was able to look up her heart cath that she had an 2020 which showed multiple areas of 25 to 50% stenosis but there was no intervention undertaken at that time and her stent at that time was patent. Discussed case with environment coordinator on-call Dr. Kennedy who thought it would be reasonable to admit the patient and stressed patient after ruling out with enzymes. Patient had a significant heart score of 7. I discussed case with hospitalist who presented to evaluate patient. He was able to note that patient did have a stress test in September of this year and he spoke with Dr. Kennedy once again given this finding. It was felt at that point that if she had a delta troponin and was negative she could be discharged to home with outpatient follow-up with their office. Patient's delta troponin also was normal at 9. At this point patient will be discharged to home diagnosis chest pain etiology uncertain Lab Data Attestation: I reviewed the patient's lab results. Labs: Laboratory Results - last 24 hr 04/23/23 04/23/23 19:06 21:49 WBC 7.3 RBC 4.53 Hgb 14.0 Hct 43.5 MCV 96.0 MCH 30.9 MCHC 32.2 RDW Std Deviation 47.5 H RDW Coeff of Aubrey 13.4 Plt Count 196 MPV 10.3 Immature Gran % (Auto) 0.800 Neut % (Auto) 67.1 Lymph % (Auto) 17.7 L Upson % (Auto) 9.8 Eos % (Auto) 4.2 Baso % (Auto) 0.4 Absolute Neuts (auto) 4.9 Absolute Lymphs (auto) 1.30 Nucleated RBC % 0 Sodium 139 Potassium 3.7 Chloride 103 Carbon Dioxide 32.0 Anion Gap 4 L BUN 23 H Creatinine 1.23 H Estim Creat Clear Calc 33.03 Est GFR (MDRD) Af Amer 56 L Est GFR (MDRD) Non-Af 46 L BUN/Creatinine Ratio 18.7 Glucose 152 H Calcium 9.3 Troponin I High Sens 9 9 Radiography Diagnostic Testing: Clinical Impression(s) from Imaging Studies Chest X-Ray 04/23/23 18:38 IMPRESSION: No acute findings in the chest. Electronically Signed: Khris Caicedo MD at 18:55 EDT , 1 view chest x-ray obtained interpreted by myself as no evidence of infiltrate or pneumothorax or acute disease process. Radiology in agreement. EKG Initial EKG: Attestation: I personally reviewed and interpreted this EKG as follows: Comments: Atrial fibrillation with a ventricular rate of [address] changes Discharge Plan Triage Chief Complaint: Chest Pain ED Provider: Maria Fernanda Moss Dx/Rx/DC Orders Clinical Impression: Chest pain Instructions: ED Chest Pain, Uncertain Cause Prescriptions: No Action potassium chloride 10 mEq tablet extended release 10 meq PO DAILY Hold Instructions: until lasix restarted allopurinol 100 mg tablet 100 mg PO DAILY buspirone 10 mg tablet 10 mg PO TID Rx Instructions: 10mg bid and 15mg QS Saline Mist 0.65 % aerosol,spray 2 spray intranasal TID PRN atorvastatin 40 MG tablet 40 mg PO QHS Patient Comments: cholesterol levothyroxine 100 MCG tablet 100 mcg PO DAILY Patient Comments: thyroid duloxetine 60 mg capsule,delayed release(DR/EC) 60 mg PO DAILY Patient Comments: mental health ascorbic acid (vitamin C) 500 MG tablet 500 mg PO DAILY@1700 Patient Comments: Supplement aspirin 81 MG tablet 81 mg PO DAILY@1700 Patient Comments: STOP 5 DAYS PRIOR TO OR fexofenadine 180 mg tablet 180 mg PO DAILY omeprazole 40 MG capsule,delayed release(DR/EC) 40 mg PO DAILY furosemide 20 MG tablet 20 mg PO BID Hold Instructions: hold until BP will allow reinitiation cholecalciferol (vitamin D3) 50 MCG capsule 2,000 unit PO DAILY insulin glargine [Lantus Solostar U-100 Insulin] 100 unit/mL (3 mL) insulin pen 54 unit SC BID insulin lispro 100 unit/mL insulin pen 14 unit SC BREAKFAST insulin lispro 100 unit/mL insulin pen 20 unit SC LUNCH insulin lispro 100 unit/mL insulin pen 24 unit SC DINNER ferrous sulfate 325 mg (65 mg iron) Tablet 325 mg PO DAILY amlodipine 5 mg tablet 5 mg PO DAILY isosorbide mononitrate 120 mg tablet extended release 24 hr 120 mg PO DAILY albuterol sulfate 90 mcg/actuation HFA aerosol inhaler 1 - 2 puff INHALATION PRN PRN (Reason: COPD) acetaminophen 500 mg Tablet 1,000 mg PO Q8 Qty: 0 0RF oxycodone 5 mg Tablet 5 - 10 mg PO Q4H PRN PRN (Reason: Pain Score 4-10/10) 5 Days Qty: 60 0RF nitroglycerin 0.4 mg tablet, sublingual 0.4 mg sublingual Q5-15M PRN (Reason: chest pain) Qty: 25 3RF apixaban 2.5 mg tablet 2.5 mg PO BID Patient Comments: .Blood thinner- LAST DOSE 3-4 DAYS PRIOR, PT HAS WRITTEN ON PAPER metoprolol tartrate 100 mg tablet 100 mg PO BID Qty: 60 11RF Primary Care Provider: Bhupendra Oliveira Referrals: Bhupendra Oliveira MD [Primary Care Provider] - Bart Blas MD [Med Staff - Active Staff] - Tarun Kennedy MD [Med Staff - Active Staff] - 3-5 Days Disposition Disposition: Home, Self Care
--- NOTE | 2023-04-23 18:38 | RAD_ITS ---
EXAM: XR CHEST, 1 VIEW CLINICAL INDICATION: chest pain TECHNIQUE: Frontal view of the chest. COMPARISON: 4. FINDINGS: LUNGS AND PLEURAL SPACES: Unremarkable. No consolidation or edema. No pneumothorax. No effusion. HEART: Enlarged heart. MEDIASTINUM: Central airways and mediastinal contour are unremarkable. BONES/JOINTS: Unremarkable. SOFT TISSUES: Unremarkable. RAD/Chest 1 View (Portable) IMPRESSION: No acute findings in the chest. Electronically Signed: Khris Caicedo MD at 18:55 EDT ,
--- NOTE | 2023-04-23 18:53 | ED.RN ---
PATIENT HAD 1 VISITOR IN ROOM. 4 MORE VISITORS CAME. THIS RN INFORMED FAMILY, ONLY 1 MORE PERSON MAY GO BACK. THERE IS NO SWITCHING IN AND OUT. FAMILY UPSET ABOUT POLICY. RN ALSO INFORMED THEM WE DO NOT ALLOW VISITORS IN THE WAITING ROOM. ONE OF THE FEMALE VISITORS STATES THIS HOSPITAL IS FUCKING STUPID. THIS IS WHY I DON'T COME HERE. ALL 5 VISITORS HAVE LEFT THE ED.
[2023-04-23] MEDS: Aspirin 81 MG TAB.CHEW 324 MG PO (19:04)
[2023-04-23] MEDS: 0.9% Normal Saline 1,000 ML 150 ML IV (19:05)
[2023-04-23] MEDS: Nitroglycerin SL (ED/IMG/CATH) 0.4 MG TABLET SL ×2 (19:06→19:22)
[2023-04-23 19:16] LABS: Absolute Neutrophil Count 4.9 X10^3/uL (2.0-7.7); Basophil# 0.03 X10^3/uL; Basophil% 0.4 % (0-1); Eosinophil# 0.31 X10^3/uL; Eosinophils% 4.2 % (0-5); Hematocrit 43.5 % (37-47); Lymphocyte % 17.7 % (19-41); Mean Corp Hgb Conc 32.2 g/dL (32-36); Mean Corpuscular Hgb 30.9 pg (27.0-32.0); Mean Platelet Vol. 10.3 fl (6.2-12.0); Monocyte# 0.72 X10^3/uL; Monocyte% 9.8 % (0-10); NRBC Flagged by Analyzer 0 % (0-5); Neutrophil # 4.91 X10^3/uL (2.7-7.7); Neutrophil % 67.1 % (47-70); Platelet Count 196 K/mm3 (150-450); RBC Distribution Width CV 13.4 % (11.6-14.6); RBC Distribution Width SD 47.5 fl (35.1-43.9); Red Blood Count 4.53 M/mm3 (4.2-5.4); White Blood Count 7.3 K/mm3 (4.4-11.0)
[2023-04-23 19:35] LABS: Anion Gap 4 (5-15); BUN 23 mg/dL (7-18); BUN/Creat Ratio 18.7 RATIO (10-20); Calcium,Total 9.3 mg/dL (8.5-10.1); Chloride 103 mmol/L (98-107); Creatinine, Serum 1.23 mg/dL (0.55-1.02); EST Glomerular Filtration Rate 46 mL/min (>60); Est Glom Filt Rate - Afr Amer 56 mL/min (>60); Estimated Creatinine Clearance 33.03 ml/min; Glucose 152 mg/dL (74-106); Potassium 3.7 mmol/L (3.5-5.1); Sodium Level 139 mmol/L (136-145); Troponin-I HS (w/2H Reflex) 9 pg/mL (3.0-54.0)
[2023-04-23 21:13] LABS: Reflex Troponin-HS? (from REC) Y
[2023-04-23 22:11] LABS: Troponin-I HS 9 pg/mL (3.0-54.0)
== END 2023-04-23 23:15 | disposition home or self-care (01) ==
PROVIDERS: Emergency Provider Emergency Medicine; PCP Family Medicine; Visit Provider Emergency Medicine
DX: R07.9 Chest pain, unspecified (principal); J44.9 Chronic obstructive pulmonary disease, unspecified; I13.0 Hypertensive heart and chronic kidney disease with heart failure and stage 1 through stage 4 chronic kidney disease, or unspecified chronic kidney disease; I50.9 Heart failure, unspecified; E11.22 Type 2 diabetes mellitus with diabetic chronic kidney disease; I48.0 Paroxysmal atrial fibrillation; Z79.4 Long term (current) use of insulin; N18.32 Chronic kidney disease, stage 3b; E78.2 Mixed hyperlipidemia; I25.10 Atherosclerotic heart disease of native coronary artery without angina pectoris; I25.2 Old myocardial infarction; Z99.81 Dependence on supplemental oxygen; Z79.01 Long term (current) use of anticoagulants; Z79.82 Long term (current) use of aspirin; Z79.890 Hormone replacement therapy; Z79.899 Other long term (current) drug therapy; Z87.891 Personal history of nicotine dependence; Z95.5 Presence of coronary angioplasty implant and graft
CPT/HCPCS: 71045; 80048; 84484; 85025; 93005; 96360; 96361; 99284; J7030; A4216

== ENCOUNTER → 2023-05-08 | Outpatient (CLI) | payer MEDICARE, MEDICAID, SELFPAY ==
--- NOTE | 2023-05-08 17:15 | CT_ITS ---
EXAM: CT LEFT LOWER EXTREMITY WITHOUT INTRAVENOUS CONTRAST CLINICAL INDICATION: LT HIP FX TECHNIQUE: Helically acquired images were obtained of the left lower extremity without intravenous contrast. 2-D reformats were performed by the technologist. CTDIvol = ( 23.46 ) mGy, DLP = ( 1043.19 ) mGycm This CT exam was performed using one or more of the following dose reduction techniques: automated exposure control, adjustment of the mA and/or kV according to patient size, and/or use of iterative reconstruction technique. COMPARISON: No relevant prior studies available. FINDINGS: BONES/JOINTS: Status post ORIF of a right femoral neck fracture. The lesser trochanter fracture shows nonunion. Preservation of the joint space. No other fracture lucencies. No other acute or healing fracture or malalignment. No other unusual lytic or sclerotic lesions of bone. No hardware complications or failure. Small left hip joint effusion. SOFT TISSUES: Unremarkable. No soft tissue swelling or gas. No radiopaque foreign body. VASCULATURE: Vascular calcifications in pelvis. OTHER FINDINGS: No well organized fluid collections or other masses. No free pelvic fluid. Status post anterior abdominal wall hernia repair. 1. Nonunion of the lesser trochanter. 2. No hardware complications. 3. No acute osseous abnormalities or malalignment. Electronically Signed: Thai nAg MD at 1:26 EDT , CT/Extremity Lower without Contra IMPRESSION: undefined
== END | disposition home or self-care (01) ==
PROVIDERS: PCP Family Medicine; Referring Provider Specialist; Visit Provider Specialist
DX: S72.142D Displaced intertrochanteric fracture of left femur, subsequent encounter for closed fracture with routine healing (principal); X58.XXXD Exposure to other specified factors, subsequent encounter
CPT/HCPCS: 73700

== ENCOUNTER 2023-05-15 18:20 | Emergency (ER) | payer MEDICARE, MEDICAID, SELFPAY ==
[2023-05-15 18:27] VITALS: BP 90/51; PULSE 87; RESP 18; TEMP 36.4; O2SAT 100
--- NOTE | 2023-05-15 20:39 | ED.RN ---
190 pt and family tired of waiting,left.
== END 2023-05-15 21:41 | disposition left against medical advice (07) ==
PROVIDERS: PCP Family Medicine
DX: Z53.21 Procedure and treatment not carried out due to patient leaving prior to being seen by health care provider (principal)
CPT/HCPCS: 99281

== ENCOUNTER 2023-06-03 09:46 | Observation (INO) | payer MEDICARE, MEDICAID, SELFPAY ==
[2023-06-03] VITALS (10 sets, daily range): BP systolic 112–157; BP diastolic 83–122; PULSE 77–113; RESP 16–20; TEMP 36.6–36.8; O2SAT 93–100; BMI 38.6; BMI 38.4
--- NOTE | 2023-06-03 10:02 | EKG12_ITS ---
Test Reason : CP Blood Pressure : / mmHG Vent. Rate : 088 BPM Atrial Rate : 000 BPM P-R Int : 000 ms QRS Dur : 070 ms QT Int : 376 ms P-R-T Axes : 000 -16 073 degrees QTc Int : 454 ms Atrial fibrillation T wave abnormality, consider lateral ischemia Abnormal ECG Confirmed by ALETA ABRAHAM, ALVAREZ ([id number]), online editor YAN SUH ([id number]) on 06/05/2023 1:38:10 PM Referred By: ES/RU Confirmed By:ALVAREZ RIVER MD
--- NOTE | 2023-06-03 10:02 | CT_ITS ---
STUDY: CT CHEST, ABDOMEN T PELVIS WITH CONTRAST REASON FOR EXAM: Female, 68 years old. Chest and abdominal pain. Back pain and rib pain. RADIATION DOSAGE (If Supplied By Facility): CTDIvol = ( 22.94 ) mGy, DLP = ( 2306.91 ) mGycm TECHNIQUE: Transaxial imaging was performed following intravenous administration of IV 100mL [id number]-300. Multiplanar coronal and sagittal images were reformatted. Individualized dose optimization techniques were used for this CT. COMPARISON: Comparison is made with prior CT scan of the chest dated April 08, 2016. FINDINGS: CHEST Mild degree of increased linear markings at the lung bases suggestive of either scarring and/or atelectasis. There is no demonstrated pleural abnormality. There are calcifications of the coronary arteries. Calcified mediastinal lymph nodes. Calcified left hilar adenopathy. Normal unenhanced pulmonary arteries. There is atherosclerotic calcification of the aortic arch and descending thoracic aorta. There are degenerative changes of the thoracic spine. Calcified splenic granulomas. Small cyst in the upper pole of the left kidney. ABDOMEN Normal liver. The patient is status post cholecystectomy. Dilated intrahepatic biliary ducts. The common bile duct is dilated proximally and measures 1.7 cm. It tapers distally into the ampulla of Vater measuring 1.1 cm. Normal spleen. Normal pancreas. Normal bilateral adrenal glands. Normal right kidney. There is a 1.4 cm cyst in the medial inferior pole of the left kidney. Normal visualized stomach. Normal small intestine. Normal colon. The appendix is visualized and appears normal. There is diffuse atherosclerotic calcification of the abdominal aorta, without a demonstrated aneurysm. Normal inferior vena cava. There is borderline retroperitoneal lymphadenopathy with enlarged nodes no greater than 10mm in the short axis diameter. This evidence of prior ventral hernia repair with mesh. Postoperative changes are seen. Persistent 1.3 cm anterior abdominal wall defect just lateral to the right side of the umbilicus. Normal osseous structures. PELVIS Normal urinary bladder. The patient is status post hysterectomy. There is no pelvic fluid. There is no pelvic lymphadenopathy or mass lesion. There is diffuse atherosclerotic calcification of the pelvic arteries. CT/CT Chest, Abd, Pel w/Contrast IMPRESSION: Mild degree of increased markings at the lung bases suggestive of either atelectasis and/or scarring. Small left renal cyst. Prior ventral hernia repair. Atherosclerotic calcific plaques of the thoracic and abdominal aorta. Status post cholecystectomy with dilated intrahepatic biliary ducts and common bile duct. Electronically Signed: Bentley Montejo MD at 12:37 EDT ,
--- NOTE | 2023-06-03 10:04 | EX.ED.DYSGE1 ---
HPI History of Present Illness Chief Complaint: Chest Pain Detail of Chief Complaint: Chest and abdomen pain Informant: patient Narrative Narrative: Presents with complaint of pain in her chest and abdomen that started rather suddenly around 8:45 AM. Pain is dull and sharp and achy and pressure all at the same time. She thinks it started in the center of her chest and epigastric region and had a radiated across her chest and into her back and lower abdomen. Patient took 2 nitro and the second 1 seemed to help a little bit. Currently rates her pain an 8 or 9 out of 10. Denies nausea or vomiting. She denies feeling short of breath. She is never quite had pain like this before. Patient does have history of coronary artery disease and has a stent. Had a stress test in September and her last heart cath was about 3 years ago. Patient had COVID diagnosed May 14 but she feels like she is completely recovered currently. [facility] Medical History Anemia Anxiety Anxiety Arthritis Atherosclerotic heart disease of [place] coronary artery without angina pectoris Back pain Broken rib Cancer Cardiology follow-up encounter Chronic kidney disease (CKD) stage G3b/A1, moderately decreased glomerular filtration rate (GFR) between 30-44 mL/min/1.73 square meter and albuminuria creatinine ratio less than 30 mg/g Chronic respiratory insufficiency Closed intertrochanteric fracture of left femur COPD (chronic obstructive pulmonary disease) DDD (degenerative disc disease) Diabetes Diabetes mellitus type 2 in obese Diabetic neuropathy Difficulty swallowing DVT (deep venous thrombosis) Essential hypertension Excessive bleeding Fall at home Former smoker Gastric reflux Gastroparesis Gastroparesis GERD (gastroesophageal reflux disease) High cholesterol History of cervical cancer History of CHF (congestive heart failure) History of diverticulitis History of DVT (deep vein thrombosis) History of edema History of heart attack History of Holter monitoring History of IBS History of renal disease History of stress test Hypothyroidism Injury of back Insulin dependent diabetes mellitus Lung nodule Migraine headache Mixed hyperlipidemia On home oxygen therapy PAR[place] (obstructive sleep apnea) Paroxysmal A-fib Paroxysmal atrial fibrillation Post-menopausal Presence of stent in coronary artery (~12/07/03) Pulmonary embolism Pulmonary embolism Pulmonary hypertension RLS (restless legs syndrome) Sleep apnea Thyroid disease Tinnitus Uses wheelchair Walker as ambulation aid Wears dentures Wears glasses Wears hearing aid Home Medications atorvastatin 40 mg tablet 40 mg PO QHS CHOLESTEROL LOWERING 02/03/18 [History Last Taken 06/03/23] levothyroxine 100 mcg tablet 100 mcg PO DAILY THYROID 02/03/18 [History Last Taken 06/03/23] ascorbic acid (vitamin C) 500 mg tablet 500 mg PO DAILY@1700 supplement 05/17/18 [History Last Taken 06/03/23] aspirin 81 mg tablet,delayed release 81 mg PO DAILY@1700 Heart 09/02/18 [History Last Taken 06/03/23] potassium chloride 10 mEq tablet,extended release 10 meq PO DAILY supplement 06/08/19 [History Last Taken 06/03/23] allopurinol 100 mg tablet 100 mg PO DAILY gout 08/11/19 [History Last Taken 06/03/23] furosemide 20 mg tablet 20 mg PO BID FLUID 10/25/20 [History Last Taken 06/03/23] omeprazole 40 mg capsule,delayed release 40 mg PO DAILY GERD 10/25/20 [History Last Taken 06/03/23] cholecalciferol (vitamin D3) 50 mcg (2,000 unit) capsule 2,000 unit PO DAILY SUPPLEMENT 12/13/20 [History Last Taken 06/02/23] buspirone 10 mg tablet 10 mg PO BID depression 06/12/22 [History Last Taken 06/03/23] duloxetine 60 mg capsule,delayed release 60 mg PO DAILY MENTAL HEALTH 06/12/22 [History Last Taken 06/03/23] fexofenadine 180 mg tablet 180 mg PO DAILY ALLERGIES 06/12/22 [History Last Taken 06/03/23] insulin glargine 100 unit/mL (3 mL) subcutaneous pen (Lantus Solostar U-100 Insulin) 56 unit subcut BID DM 06/12/22 [History Last Taken 06/03/23] insulin lispro 100 unit/mL subcutaneous pen 14 unit subcut BREAKFAST DIABETES 06/12/22 [History Last Taken 06/03/23] insulin lispro 100 unit/mL subcutaneous pen 14 unit subcut LUNCH DIABETES 06/12/22 [History Last Taken 06/02/23] insulin lispro 100 unit/mL subcutaneous pen 24 unit subcut DINNER DIABETES 06/12/22 [History Last Taken 06/02/23] sodium chloride 0.65 % nasal spray aerosol (Saline Mist) 2 spray intranasal TID PRN ALLERGIES 06/12/22 [History Last Taken 06/03/23] nitroglycerin 0.4 mg sublingual tablet 0.4 mg sublingual Q5-15M PRN chest pain #25 tabs 10/21/22 [Rx Last Taken 12/17/22] apixaban 2.5 mg tablet 2.5 mg PO BID Blood thinner 11/12/22 [History Last Taken 06/03/23] albuterol sulfate 90 mcg/actuation aerosol inhaler 2 puff inhalation PRN PRN COPD 12/12/22 [History Last Taken 12/17/22] amlodipine 5 mg tablet 5 mg PO DAILY BP 12/12/22 [History Last Taken 06/03/23] ferrous sulfate 325 mg (65 mg iron) tablet 325 mg PO DAILY SUPPLEMENT 12/12/22 [History Last Taken 06/03/23] isosorbide mononitrate 120 mg tablet,extended release 24 hr 120 mg PO DAILY HEART 12/12/22 [History Last Taken 06/03/23] metoprolol tartrate 100 mg tablet 100 mg PO BID Heart Rate #60 tabs 12/27/22 [Rx Last Taken 06/03/23] alendronate 70 mg tablet 70 mg PO TU BONES 06/03/23 [History Last Taken 06/03/23] buspirone 10 mg tablet 15 mg PO QHS 06/03/23 [History Last Taken 06/02/23] nystatin 100,000 unit/gram topical powder (Nyamyc) 1 applic topical TID PRN SKIN 06/03/23 [History Last Taken Unknown] triamcinolone acetonide 0.1 % topical cream 1 applic topical DAILY PRN SKIN 06/03/23 [History Last Taken 06/01/23] Allergy/AdvReac Type Severity Reaction Status Date / Time metoclopramide [From Reglan] Allergy Intermediate Itching Verified 06/03/23 14:20 ciprofloxacin [From Cipro] Allergy Hives Verified 06/03/23 14:20 latex Allergy matos me Verified 06/03/23 14:20 niacin Allergy Hives Verified 06/03/23 14:20 [From Niaspan Extended-Release] ranolazine [From Ranexa] Allergy Itching Verified 06/03/23 14:20 adhesive tape AdvReac Other Verified 06/03/23 14:20 orphenadrine citrate AdvReac groggy Verified 06/03/23 14:20 [facility] Family History Mother CAD (coronary artery disease) Father CAD (coronary artery disease) Brother CAD (coronary artery disease) Asthma Sister Hypertension Sister Diabetes Sister Heart disease Surgical History History of cardiac catheterization History of cholecystectomy History of coronary artery stent placement History of hernia repair History of knee surgery History of left heart catheterization (LHC) (~09/28/19) History of nasal surgery History of surgery on wrist History of total abdominal hysterectomy History of tubal ligation Hx of surgical procedure Presence of coronary angioplasty implant and graft (~12/07/03) Social History Smoking Status: Former smoker alcohol intake: never substance use type: does not use caffeine: Yes Type: coffee Number of servings: 1 ROS ROS ED Review of Systems ROS Unobtainable: other Constitutional Constitutional ED: Reports lethargy; Denies chills, fever(s), sweats or weight loss Eyes Eyes: Denies blurry vision, change in vision or diplopia ENT ENT ED: Denies rhinorrhea or sore throat Cardiovascular Cardiovascular: Reports chest pain; Denies orthopnea or racing heartbeat Respiratory/Chest Respiratory/Chest: Denies cough, dyspnea, dyspnea on exertion, orthopnea or sputum Gastrointestinal Gastrointestinal: Reports abdominal pain; Denies diarrhea, nausea or vomiting Genitourinary Genitourinary ED: Denies dysuria, hematuria or urinary frequency Musculoskeletal Musculoskeletal: Denies arthralgias, back pain, myalgias or neck pain Integumentary Denies abscess, Abrasions or rash Neurologic Neurologic: Denies headache(s) or weakness Psychiatric Psychiatric: Denies anxiety, depression or suicidal thoughts Endocrine Endocrinology: Denies polydipsia, polyphagia or polyuria Hematologic/Lymphatic Hematologic/Lymphatic: Denies easy bleeding, easy bruising or lymphadenopathy Allergic/Immunologic Allergic/Immunologic ED: Denies mouth swelling, tongue swelling or urticaria EXAM Physical Exam Const Vital Signs: 06/03/23 09:47 06/03/23 10:11 Temperature 98 F Temperature Source Temporal Pulse Rate 90 Respiratory Rate 20 H Blood Pressure 154/97 H Blood Pressure Mean 116 Pulse Ox 96 Oxygen Delivery Method Nasal Cannula Nasal Cannula Oxygen Flow Rate (L/min) 3 2 Positive well nourished and well developed General Appearance ED: well developed and NAD HEENT Reports TM's clear and moist mucous membranes normocephalic and atraumatic; Negative for trauma or tenderness Tympanic Membrane ED: Yes TM's clear Eyes PERRL and EOMs intact bilaterally General Eye ED: Negative for pale conjunctiva or scleral icterus Neck no lymphadenopathy, supple and no JVD General: Negative for tenderness Chest Wall inspection of chest normal and palpation of chest normal Chest: Negative for tenderness Resp normal respiratory effort and clear to auscultation bilaterally Effort and Inspection: Negative for respiratory distress or pain with movement Auscultation: Negative for rhonchi, wheezes or diminished lung sounds Cardio regular rate, regular rhythm, S1 normal heart sound, S2 normal heart sound and no murmurs Peripheral Pulses: pulses 2+ throughout GI normal to inspection, nondistended, normoactive bowel sounds, soft to palpation, non-distended and no masses GI Narrative: To palpation in the epigastric region and diffusely to the abdomen. There are some mild guarding. There is no rebound, rigidity, or. Signs. No pulsatile mass palpated although exam difficult secondary to patient's body habitus. Back/Spine no CVA tenderness and no thoracic nor lumbar tenderness Extremity normal to inspection General Extremety ED: Negative for edema General Extremity: Negative for edema Neuro oriented x3, CN's II-XII intact bilaterally, no sensory deficits noted and gait normal Sensorium / Orientation: awake, alert, oriented to person, oriented to place and oriented to time Motor Exam: strength 5/5 throughout and strength abnormal Psych mental status grossly normal Skin no rashes or lesions noted and no wounds MDM MDM MDM Narrative Medical decision making narrative: With chest discomfort that came on this morning. In the differential would be acute coronary syndrome versus esophageal spasm or intra-abdominal process such as bowel obstruction or pancreatitis. She does have known history of coronary artery disease. IV line was established. EKG obtained arrival initially showed A-fib with a rate of [address] changes. Patient continued to complain of worsening pain and a repeat EKG was obtained that showed atrial fibrillation with nonspecific ST changes that seem to be somewhat more pronounced in leads V4, V5 and V6 with flipped T waves. And was ordered sublingual nitro. She was ordered morphine for pain. CBC with differential obtained showing of 8.0 with hemoglobin of 13 and hematocrit of 42 and platelet count of 244. I did order a CT of the chest abdomen and pelvis with IV contrast to rule out dissection. Currently anticoagulated with Eliquis. Lab Data Attestation: I reviewed the patient's lab results. Labs: Laboratory Results - last 24 hr 06/03/23 06/03/23 10:00 11:17 WBC 8.0 RBC 4.37 Hgb 13.4 Hct 42.0 MCV 96.1 MCH 30.7 MCHC 31.9 L RDW Std Deviation 49.8 H RDW Coeff of Aubrey 14.2 Plt Count 244 MPV 10.8 Immature Gran % (Auto) 0.800 Neut % (Auto) 71.5 H Lymph % (Auto) 13.0 L [place] % (Auto) 8.8 Eos % (Auto) 5.5 H Baso % (Auto) 0.4 Absolute Neuts (auto) 5.7 Absolute Lymphs (auto) 1.04 Nucleated RBC % 0 Sodium Cancelled 141 Potassium Cancelled 3.3 L Chloride Cancelled 105 Carbon Dioxide Cancelled 34.0 H Anion Gap Cancelled 2 L BUN Cancelled 21 H Creatinine Cancelled 1.15 H Estim Creat Clear Calc Cancelled 35.33 Est GFR (MDRD) Af Amer Cancelled 60 Est GFR (MDRD) Non-Af Cancelled 50 L BUN/Creatinine Ratio Cancelled 18.3 Glucose Cancelled 89 Calcium Cancelled 8.5 Total Bilirubin Cancelled 0.90 Direct Bilirubin Cancelled 0.42 H AST Cancelled 21 ALT Cancelled 19 Alkaline Phosphatase Cancelled 83 Troponin I High Sens Cancelled 10 Total Protein Cancelled 7.9 Albumin Cancelled 3.1 L Globulin Cancelled 4.8 H Lipase Cancelled 21 Radiography Diagnostic Testing: Clinical Impression(s) from Imaging Studies Chest/Abdomen/Pelvis CT 06/03/23 10:02 IMPRESSION: Mild degree of increased markings at the lung bases suggestive of either atelectasis and/or scarring. Small left renal cyst. Prior ventral hernia repair. Atherosclerotic calcific plaques of the thoracic and abdominal aorta. Status post cholecystectomy with dilated intrahepatic biliary ducts and common bile duct. Electronically Signed: Bentley Montejo MD at 12:37 EDT , Chest X-Ray 06/03/23 11:15 IMPRESSION: Cardiomegaly. The lungs are clear. Electronically Signed: Bentley Montejo MD at 12:04 EDT , Chest x-ray obtained interpreted by myself as no evidence of pneumothorax or infiltrate or acute disease process. No evidence of widened mediastinum. Official report from radiology pending. EKG Initial EKG: Attestation: I personally reviewed and interpreted this EKG as follows: Comments: Atrial fibrillation with a ventricular rate of [address] changes. Repeat EKG obtained for ongoing pain showed A-fib with nonspecific ST changes in new changes known V4 V5 and V6 with flipped T waves. ST depression Discharge Plan Dx/Rx/DC Orders Clinical Impression: Atrial fibrillation, History of hypertension, History of CAD (coronary artery disease), Chest pain Disposition Disposition: Acute Care Hospital [facility] Discharge Date/Time: 06/03/23 14:58
[2023-06-03] MEDS: Morphine 4 MG/ML Syringe IV ×2 (10:21→11:03)
[2023-06-03] MEDS: Ondansetron 4 MG/2 ML Vial IV (10:21)
[2023-06-03] MEDS: 0.9% Normal Saline (1000mL) 1,000 ML 150 ML IV (10:23)
--- NOTE | 2023-06-03 10:44 | NURSING ---
NEEDS CHEMISTRIES AND PURPLE TOP REDRAWN
[2023-06-03 10:45] LABS: Absolute Lymphocyte Count 1.04 X10^3/uL (0.83-4.51); Absolute Neutrophil Count 5.7 X10^3/uL (2.0-7.7); Basophil# 0.03 X10^3/uL; Basophil% 0.4 % (0-1); Eosinophil# 0.44 X10^3/uL; Eosinophils% 5.5 % (0-5); Hemoglobin 13.4 g/dL (12.0-15.0); Lymphocyte # 1.04 X10^3/ul (0.83-4.51); Mean Corp Hgb Conc 31.9 g/dL (32-36); Mean Corpuscular Hgb 30.7 pg (27.0-32.0); Mean Corpuscular Volume 96.1 fL (81-99); Mean Platelet Vol. 10.8 fl (6.2-12.0); Monocyte% 8.8 % (0-10); NRBC Flagged by Analyzer 0 % (0-5); Neutrophil # 5.73 X10^3/uL (2.7-7.7); Neutrophil % 71.5 % (47-70); Platelet Count 244 K/mm3 (150-450); RBC Distribution Width CV 14.2 % (11.6-14.6); RBC Distribution Width SD 49.8 fl (35.1-43.9); Red Blood Count 4.37 M/mm3 (4.2-5.4)
--- NOTE | 2023-06-03 10:54 | EKG12_ITS ---
Test Reason : REPEAT Blood Pressure : / mmHG Vent. Rate : 091 BPM Atrial Rate : 000 BPM P-R Int : 000 ms QRS Dur : 070 ms QT Int : 362 ms P-R-T Axes : 000 -16 175 degrees QTc Int : 445 ms Atrial fibrillation with premature ventricular or aberrantly conducted complexes Nonspecific ST and T wave abnormality Abnormal ECG Confirmed by ALETA ABRAAHM, ALVAREZ ([id number]), digital editor YAN SUH ([id number]) on 06/05/2023 1:38:39 PM Referred By: Confirmed By:ALVAREZ RIVER MD
--- NOTE | 2023-06-03 11:15 | RAD_ITS ---
STUDY: X-RAY CHEST REASON FOR EXAM: Female, 68 years old. Chest pain TECHNIQUE: Single AP portable view of the chest. COMPARISON: Comparison is made with prior study April 23, 2023. FINDINGS: EKG electrodes are seen. The lungs are clear and expanded. There is no demonstrated pleural abnormality. There is mild cardiac enlargement. Normal mediastinum and tracie. Normal visualized pulmonary arteries. There is atherosclerotic calcification of the aortic arch with tortuosity. There are diffuse degenerative changes of the visualized thoracic spine. Normal visualized ribs, clavicles, and shoulders. There is no demonstrated abnormality of the visualized soft tissue structures of the upper abdomen. RAD/Chest 1 View (Portable) IMPRESSION: Cardiomegaly. The lungs are clear. Electronically Signed: Bentley Montejo MD at 12:04 EDT ,
[2023-06-03 11:47] LABS: AST(SGOT) 21 U/L (15-37); Alanine Aminotransfer ALT/SGPT 19 U/L (13-56); Albumin, Serum 3.1 g/dL (3.2-5.0); Alkaline Phosphatase 83 U/L (45-117); Anion Gap 2 (5-15); BUN 21 mg/dL (7-18); BUN/Creat Ratio 18.3 RATIO (10-20); Bilirubin, Direct 0.42 mg/dL (0.00-0.30); Calcium,Total 8.5 mg/dL (8.5-10.1); Chloride 105 mmol/L (98-107); Creatinine, Serum 1.15 mg/dL (0.55-1.02); EST Glomerular Filtration Rate 50 mL/min (>60); Est Glom Filt Rate - Afr Amer 60 mL/min (>60); Estimated Creatinine Clearance 35.33 ml/min; Globulin 4.8 g/dL (2.2-4.2); Glucose 89 mg/dL (74-106); Lipase 21 U/L (13-75); Potassium 3.3 mmol/L (3.5-5.1); Protein, Total 7.9 g/dL (6.4-8.2); Sodium Level 141 mmol/L (136-145); Troponin-I HS (w/2H Reflex) 10 pg/mL (3.0-54.0)
[2023-06-03 13:23] LABS: Reflex Troponin-HS? (from REC) Y
[2023-06-03 13:58] LABS: Troponin-I HS 10 pg/mL (3.0-54.0)
--- NOTE | 2023-06-03 16:23 | CASEMGMT ---
[facility] Dual insurance if transfer is recommended is as follows: [facility], [place], [facility], [facility], [facility], [facility]), and . Irene Mcghee, Discharge Planning Asst.
--- NOTE | 2023-06-03 17:20 | CON.PCM.CA_ITS ---
Assessment & Plan Assessment/Plan (1) Atrial fibrillation: QUALIFIERS: Atrial fibrillation type: persistent (not longstanding) Qualified Code(s): I48.19 - Other persistent atrial fibrillation PLAN: She does have chronic persistent atrial fibrillation with a controlled ventricular response rate at this particular time. My recommendation will be f or her to continue the anticoagulation after her upcoming procedure. She will also continue on the beta-sudhakar. We should obtain an echocardiogram to assess her ventricular function. (2) Presence of stent in coronary artery: PLAN: She does have a previous stent and presents with chest discomfort. It is difficult to tell whether this is anginal or not. She did have a stress test which demonstrated no evidence of ischemia before over 12 months ago. At this juncture I will suggest that she be further evaluated with a cardiac catheterization and depending on the findings further recommendations will be made. Risk benefits alternatives have been explained to her she understands and agrees to proceed. (3) Essential hypertension: PLAN: Her blood pressure appears to be under good control at this particular time and I would not recommend that we make any changes. (4) Chest pain: QUALIFIERS: Ischemic chest pain type: unstable angina pectoris Chest pain type: chest pain due to myocardial ischemia Qualified Code(s): I20.0 - Unstable angina PLAN: She does present with chest discomfort which appears to have borderline features. There are some atypical features but in addition she does have a previous coronary disease history and some features which typical. Based on this I will recommend that we obtain a cardiac catheterization and then further recommendations made. This has been explained to her and she understands and agrees to proceed. She will need medication optimization after the cardiac catheterization. Thank you for allowing me to participate in the care of your patient. Please don't hesitate to call if any issues arise. HPI Consult Data Date of Consult: 06/03/23 HPI Narrative HPI Narrative: RUI PANDA, is a 68 F who presents with chest discomfort which she described as a heaviness in the center of her chest radiating to her back and also her right arm. She has a history of coronary artery disease, previous PCI, par oxysmal atrial fibrillation, chronic diastolic mediated CHF, superimposed on hyperlipidemia, hypertension, diabetes mellitus, chronic renal insufficiency, a history of thromboembolic disease with DVT/PE, and obstructive sleep apnea. She had been doing quite well on her current medications with no chest discomfort. She however presented to the emergency room with the above. She did take some sublingual nitroglycerin with some relief and then it appeared to recur. She therefore restarted it. In the emergency room she was noted to be in atrial fibrillation with a controlled ventricular response rate, cardiac enzymes were noted to be normal and blood pressure was noted to be normal. Cardiology was called for further evaluation and management. Her last catheterization in September 2019 demonstrated the following:LEFT MAIN: Mild luminal irregularities ,LEFT ANTERIOR DESCENDING ARTERY: PROX LAD: ectatic / aneurysmal appearing MID LAD: s/p DX1: 25 % Stenosis, 25 - 50 % Stenosis DIAGONAL 1: Proximal - Previously placed stent is patent CIRCUMFLEX ARTERY: OM 1: Proximal - is occluded and fills late, faintly, and partially from left to left and right to left collaterals RIGHT CORONARY ARTERY: Mild luminal irregularities PROX RCA: diffuse: eccentric: 25 % Stenosis RT PDA: Proximal - diffuse: eccentric: 50 % Stenosis, Mid - diffuse: eccentric: 50 % Stenosis The ejection fraction was preserved. [facility] Medical History Anemia Anxiety Anxiety Arthritis Atherosclerotic heart disease of [place] coronary artery without angina pectoris Back pain Broken rib Cancer Cardiology follow-up encounter Chronic kidney disease (CKD) stage G3b/A1, moderately decreased glomerular filtration rate (GFR) between 30-44 mL/min/1.73 square meter and albuminuria cre atinine ratio less than 30 mg/g Chronic respiratory insufficiency Closed intertrochanteric fracture of left femur COPD (chronic obstructive pulmonary disease) DDD (degenerative disc disease) Diabetes Diabetes mellitus type 2 in obese Diabetic neuropathy Difficulty swallowing DVT (deep venous thrombosis) Essential hypertension Excessive bleeding Fall at home Former smoker Gastric reflux Gastroparesis Gastroparesis GERD (gastroesophageal reflux disease) High cholesterol History of cervical cancer History of CHF (congestive heart failure) History of diverticulitis History of DVT (deep vein thrombosis) History of edema History of heart attack History of Holter monitoring History of IBS History of renal disease History of stress test Hypothyroidism Injury of back Insulin dependent diabetes mellitus Lung nodule Migraine headache Mixed hyperlipidemia On home oxygen therapy PARESH (obstructive sleep apnea) Paroxysmal A-fib Paroxysmal atrial fibrillation Post-menopausal Presence of stent in coronary artery (~12/07/03) Pulmonary embolism Pulmonary embolism Pulmonary hypertension RLS (restless legs syndrome) Sleep apnea Thyroid disease Tinnitus Uses wheelchair Walker as ambulation aid Wears dentures Wears glasses Wears hearing aid Home Medications atorvastatin 40 mg tablet 40 mg PO QHS CHOLESTEROL LOWERING 02/03/18 [History Last Taken 06/03/23] levothyroxine 100 mcg tablet 100 mcg PO DAILY THYROID 02/03/18 [History Last Taken 06/03/23] ascorbic acid (vitamin C) 500 mg tablet 500 mg PO DAILY@1700 supplement 05/17/18 [History Last Taken 06/03/23] aspirin 81 mg tablet,delayed release 81 mg PO DAILY@1700 Heart 09/02/18 [History Last Taken 06/03/23] potassium chloride 10 mEq tablet,extended release 10 meq PO DAILY supplement 06/08/19 [History Last Taken 06/03/23] allopurinol 100 mg tablet 100 mg PO DAILY gout 08/11/19 [History Last Taken 06/03/23] furosemide 20 mg tablet 20 mg PO BID FLUID 10/25/20 [History Last Taken 06/03/23] omeprazole 40 mg capsule,delayed release 40 mg PO DAILY GERD 10/25/20 [History Last Taken 06/03/23] cholecalciferol (vitamin D3) 50 mcg (2,000 unit) capsule 2,000 unit PO DAILY SUPPLEMENT 12/13/20 [History Last Taken 06/02/23] buspirone 10 mg tablet 10 mg PO BID depression 06/12/22 [History Last Taken 06/03/23] duloxetine 60 mg capsule,delayed release 60 mg PO DAILY MENTAL HEALTH 06/12/22 [History Last Taken 06/03/23] fexofenadine 180 mg tablet 180 mg PO DAILY ALLERGIES 06/12/22 [History Last Taken 06/03/23] insulin glargine 100 unit/mL (3 mL) subcutaneous pen (Lantus Solostar U-100 Insulin) 56 unit subcut BID DM 06/12/22 [History Last Taken 06/03/23] insulin lispro 100 unit/mL subcutaneous pen 14 unit subcut BREAKFAST DIABETES 06/12/22 [History Last Taken 06/03/23] insulin lispro 100 unit/mL subcutaneous pen 14 unit subcut LUNCH DIABETES 06/12/22 [History Last Taken 06/02/23] insulin lispro 100 unit/mL subcutaneous pen 24 unit subcut DINNER DIABETES 06/12/22 [History Last Taken 06/02/23] sodium chloride 0.65 % nasal spray aerosol (Saline Mist) 2 spray intranasal TID PRN ALLERGIES 06/12/22 [History Last Taken 06/03/23] nitroglycerin 0.4 mg sublingual tablet 0.4 mg sublingual Q5-15M PRN chest pain #25 tabs 10/21/22 [Rx Last Taken 12/17/22] apixaban 2.5 mg tablet 2.5 mg PO BID Blood thinner 11/12/22 [History Last Taken 06/03/23] albuterol sulfate 90 mcg/actuation aerosol inhaler 2 puff inhalation PRN PRN CO PD 12/12/22 [History Last Taken 12/17/22] amlodipine 5 mg tablet 5 mg PO DAILY BP 12/12/22 [History Last Taken 06/03/23] ferrous sulfate 325 mg (65 mg iron) tablet 325 mg PO DAILY SUPPLEMENT 12/12/22 [History Last Taken 06/03/23] isosorbide mononitrate 120 mg tablet,extended release 24 hr 120 mg PO DAILY HEART 12/12/22 [History Last Taken 06/03/23] metoprolol tartrate 100 mg tablet 100 mg PO BID Heart Rate #60 tabs 12/27/22 [Rx Last Taken 06/03/23] alendronate 70 mg tablet 70 mg PO TU BONES 06/03/23 [History Last Taken 06/03/23] buspirone 10 mg tablet 15 mg PO QHS 06/03/23 [History Last Taken 06/02/23] nystatin 100,000 unit/gram topical powder (Nyamyc) 1 applic topical TID PRN SKIN 06/03/23 [History Last Taken Unknown] triamcinolone acetonide 0.1 % topical cream 1 applic topical DAILY PRN SKIN 06/03/23 [History Last Taken 06/01/23] Allergy/AdvReac Type Severity Reaction Status Date / Time metoclopramide [From Reglan] Allergy Intermediate Itching Verified 06/03/23 14:20 ciprofloxacin [From Cipro] Allergy Hives Verified 06/03/23 14:20 latex Allergy matos me Verified 06/03/23 14:20 niacin Allergy Hives Verified 06/03/23 14:20 [From Niaspan Extended-Release] ranolazine [From Ranexa] Allergy Itching Verified 06/03/23 14:20 adhesive tape AdvReac Other Verified 06/03/23 14:20 orphenadrine citrate AdvReac groggy Verified 06/03/23 14:20 [From Britt] Family History Mother CAD (coronary artery disease) Father CAD (coronary artery disease) Brother CAD (coronary artery disease) Asthma Sister Hypertension Sister Diabetes Sister Heart disease Surgical History History of cardiac catheterization History of cholecystectomy History of coronary artery stent placement History of hernia repair History of knee surgery History of left heart catheterization (LHC) (~09/28/19) History of nasal surgery History of surgery on wrist History of total abdominal hysterectomy History of tubal ligation Hx of surgical procedure Presence of coronary angioplasty implant and graft (~12/07/03) Social History Smoking Status: Former smoker alcohol intake: never substance use type: does not use caffeine: Yes Type: coffee Number of servings: 1 Physical Exam Const alert, oriented x3 and no apparent distress General Appearance: cooperative HEENT hearing grossly normal bilaterally Head and Scalp: atraumatic Eyes EOMs intact bilaterally Neck General: normal visual inspection Chest inspection of chest normal and palpation of chest normal Resp normal respiratory effort Auscultation: clear to auscultation bilaterally Cardio S1 normal heart sound and S2 normal heart sound Jugular Venous Distention: JVD Rhythm: abnormal rhythm irregularly irregular GI normal to inspection, nondistended, normoactive bowel sounds Extremity normal capillary refill and no pedal edema Peripheral Pulses: Yes pulses 2+ throughout and femoral pulses present Skin no rashes or lesions noted Neuro oriented x3 and CN's II-XII intact bilaterally Psych Appearance: grossly normal and appropriate Risk Stratification Risk Stratification Applicable: Yes Age >/= 65: Yes >/= 3 CAD Risk Factors (HTN, HLD, DM, family hx of CAD, or current smoker): Yes Aspirin Use in the Past 7 Days: Yes Severe Angina (>/= episodes in 24 hours): No EKG ST Changes >/= 0.5mm: No Positive Cardiac Marker: No SYLVIE Risk Stratification Score: 3 SYLVIE % Risk: 13% Risk Objective Data Vital Signs: Vital Signs Temp Pulse Resp BP Pulse Ox O2 Del Method O2 Flow Rate 98.3 F 77 16 149/83 H 99 Nasal Cannula 3 06/03/23 15:30 06/03/23 15:30 06/03/23 15:30 06/03/23 15:30 06/03/23 15:30 06/03/23 15:30 06/03/23 15:30 Oxygen Flow Rate (L/min) 3 Oxygen Delivery Method Nasal Cannula Weight: 203 lb 4.259 oz Body Mass Index (BMI) 38.4 Intake & Output: Intake and Output for Last 24 Hours 06/01/23 06/02/23 06/03/23 23:59 23:59 23:59 Intake Total 1000 / 1000 Balance 1000 / 1000 Lab / Micro Data 06/03/23 10:00 06/03/23 11:17 Labs: Laboratory Results - last 24 hr 06/03/23 10:00: WBC 8.0, RBC 4.37, Hgb 13.4, Hct 42.0, MCV 96.1, MCH 30.7, MCHC 31.9 L, RDW Std Deviation 49.8 H, RDW Coeff of Aubrey 14.2, Plt Count 244, MPV 10.8, Immature Gran % (Auto) 0.800, Neut % (Auto) 71.5 H, Lymph % (Auto) 13.0 L, Kleberg % (Auto) 8.8, Eos % (Auto) 5.5 H, Baso % (Auto) 0.4, Absolute Neuts (auto) 5.7, Absolute Lymphs (auto) 1.04, Nucleated RBC % 0, Sodium Cancelled, Potassium Cancelled, Chloride Cancelled, Carbon Dioxide Cancelled, Anion Gap Cancelled, BUN Cancelled, Creatinine Cancelled, Estim Creat Clear Calc Cancelled, Est GFR (MDRD) Af Amer Cancelled, Est GFR (MDRD) Non-Af Cancelled, BUN/Creatinine Ratio Cancelled, Glucose Cancelled, Calcium Cancelled, Total Bilirubin Cancelled, Direct Bilirubin Cancelled, AST Cancelled, ALT Cancelled, Alkaline Phosphatase Cancelled, Troponin I High Sens Cancelled, Total Protein Cancelled, Albumin Cancelled, Globulin Cancelled, Lipase Cancelled 06/03/23 11:17: Sodium 141, Potassium 3.3 L, Chloride 105, Carbon Dioxide 34.0 H , Anion Gap 2 L, BUN 21 H, Creatinine 1.15 H, Estim Creat Clear Calc 35.33, Est GFR (MDRD) Af Amer 60, Est GFR (MDRD) Non-Af 50 L, BUN/Creatinine Ratio 18.3, Glucose 89, Calcium 8.5, Total Bilirubin 0.90, Direct Bilirubin 0.42 H, AST 21, ALT 19, Alkaline Phosphatase 83, Troponin I High Sens 10, Total Protein 7.9, Albumin 3.1 L, Globulin 4.8 H, Lipase 21 06/03/23 13:30: Troponin I High Sens 10 Cardiology Labs/Tests 06/03/23 10:00: WBC 8.0, RBC 4.37, Hgb 13.4, Hct 42.0, MCV 96.1, MCH 30.7, MCHC 31.9 L, Plt Count 244, MPV 10.8, Immature Gran % (Auto) 0.800, Neut % (Auto) 71.5 H, Lymph % (Auto) 13.0 L, Kleberg % (Auto) 8.8, Eos % (Auto) 5.5 H, Baso % (Auto) 0.4, Absolute Neuts (auto) 5.7, Nucleated RBC % 0, Sodium Cancelled, Potassium Cancelled, Chloride Cancelled, Carbon Dioxide Cancelled, Anion Gap Cancelled, BUN Cancelled, Creatinine Cancelled, Est GFR (MDRD) Af Amer Cancelled, Est GFR (MDRD) Non-Af Cancelled, BUN/Creatinine Ratio Cancelled, Glucose Cancelled, Calcium Cancelled, Total Bilirubin Cancelled, Direct Bilirubin Cancelled 06/03/23 11:17: Sodium 141, Potassium 3.3 L, Chloride 105, Carbon Dioxide 34.0 H , Anion Gap 2 L, BUN 21 H, Creatinine 1.15 H, Est GFR (MDRD) Af Amer 60, Est GFR (MDRD) Non-Af 50 L, BUN/Creatinine Ratio 18.3, Glucose 89, Calcium 8.5, Total Bilirubin 0.90, Direct Bilirubin 0.42 H Rhythm: EKG: ECHO: Stress Test: Cardiac Cath: PCI: CT Surgery: Holter monitor: EPS: PPM: CXR: Chest CT Scan: Radiography Diagnostic Testing: Radiology Impression Chest/Abdomen/Pelvis CT 06/03/23 10:02 IMPRESSION: Mild degree of increased markings at the lung bases suggestive of either atelectasis and/or scarring. Small left renal cyst. Prior ventral hernia repair. Atherosclerotic calcific plaques of the thoracic and abdominal aorta. Status post cholecystectomy with dilated intrahepatic biliary ducts and common bile duct. Electronically Signed: Bentley Montejo MD at 12:37 EDT , Chest X-Ray 06/03/23 11:15 IMPRESSION: Cardiomegaly. The lungs are clear. Electronically Signed: Bentley Montejo MD at 12:04 EDT ,
[2023-06-03 17:27] LABS: Bedside Glucose 81 mg/dL (74-106)
--- NOTE | 2023-06-03 17:39 | ECHOD_ITS ---
Reason For Study: ATRIAL FIBRILLATION Procedure This was a 2D Doppler, Color Flow transthoracic echocardiogram. The study was technically difficult. Exam performed portable in patient room. Left Ventricle Normal LV size. Left ventricular systolic function is normal. The estimated ejection fraction is 65 %. No regional wall motion abnormalities noted. Right Ventricle Normal RV size. Normal systolic function. Atria Normal left atrium. Normal right atrium. Mitral Valve Normal mitral valve. Tricuspid Valve Normal tricuspid valve. Mild (1+) tricuspid valve insufficiency. Pulmonary artery systolic pressure is 28 mmHg. Aortic Valve Normal aortic valve. Pulmonic Valve The pulmonic valve is not well visualized. Great Vessels Normal aortic root. Pericardium/Pleural No pericardial effusion. Medication Diluted definity 1ml given slow IV push to enhance endocardial definition. MMode/2D Measurements & Calculations RVDd: 3.0 cm LVOT diam: 1.9 cm Ao root diam: 3.6 cm LVOT area: 2.8 cm2 LAV(MOD-bp): 39.9 ml LVAd ap4: 21.7 cm2 LVAd ap2: 26.9 cm2 LAV(MOD-bp) Indexed: 21.0 ml/m2 LVLd ap4: 6.8 cm LVLd ap2: 7.3 cm LAV(MOD-sp2): 38.7 ml EDV(MOD-sp4): 57.1 ml EDV(MOD-sp2): 81.8 ml LAV(MOD-sp4): 41.3 ml EDV(sp4-el): 58.7 ml EDV(sp2-el): 83.7 ml LVAs ap4: 12.5 cm2 LVAs ap2: 14.5 cm2 LVLs ap4: 6.0 cm LVLs ap2: 6.1 cm ESV(MOD-sp4): 21.5 ml ESV(MOD-sp2): 27.5 ml ESV(sp4-el): 22.1 ml ESV(sp2-el): 29.2 ml EF(MOD-sp4): 62.4 % EF(MOD-sp2): 66.4 % EF(sp4-el): 62.3 % SV(MOD-sp4): 35.6 ml SV(MOD-sp2): 54.3 ml SV(sp4-el): 36.6 ml LA A4 area: 18.4 cm2 LA dimension(2D): 5.0 cm RA A4 area: 13.8 cm2 TAPSE: 0.87 cm Time Measurements MV dec time: 0.16 sec Doppler Measurements & Calculations MV E max sarabjit: 123.8 cm/sec Lat Peak E' Sarabjit: 8.4 cm/sec Med Peak E' Sarabjit: 5.9 cm/sec E/E' lat: 14.8 E/E' med: 21.2 Ao V2 max: 93.7 cm/sec LV V1 max: 87.7 cm/sec PA V2 max: 95.3 cm/sec Ao max P.6 mmHg LV V1 max P.1 mmHg PA max PG (full): 0.79 mmHg LUCY(V,D): 2.6 cm2 TR max sarabjit: 242.9 cm/sec TR max P.6 mmHg ECHO/Echo Complete W/ Contrast Interpretation Summary Normal LV size. Left ventricular systolic function is normal. The estimated ejection fraction is 65 %. Contrast injection was performed. Ordering Physician: Bart Blas Performed By: Nikki Jaffe RDCS
[2023-06-03] MEDS: Aspirin E.C. 81 MG Tablet PO (17:55)
[2023-06-03 18:02] LABS: Troponin-I HS 9 pg/mL (3.0-54.0)
--- NOTE | 2023-06-03 21:17 | PCM.HP.STD ---
HPI - General General Date of Admission: 06/03/23 Date of Service: 06/03/23 Chief Complaint: Chest pain HPI Narrative RUI PANDA, is a 68 F who presents to the emergency room at [facility] with complaints of chest pain which started this morning, she has a history of coronary artery disease and tells this examiner that she had a stent placed in 2003 at [facility] in [place]. She follows with Dr. Ramsey's office on an ongoing basis. Patient has a history of chronic atrial fibrillation and is currently taking Eliquis presently, she states that she had chest pain which started this morning, it was across her entire chest and into her right arm, she described the chest discomfort as dull and sharp at the same time, it also radiated into her back and according to the emergency room physician, there was some radiation into her lower abdomen. At the time of my examination in the emergency room, patient stated that her chest pain was resolved. Patient had a stress test done in September of this year that was negative for reversible ischemia. Patient is on chronic oxygen due to chronic obstructive pulmonary disease. Work-up in the emergency room included an EKG which showed her to be in atrial fibrillation with a well-controlled rate, no evidence of ischemic changes were noted, chest x-ray showed cardiomegaly, there is no evidence of congestive heart failure. Patient's cardiac enzymes were unremarkable. Patient CBC was unremarkable, patient's chemistry profile showed a slightly elevated creatinine of 1.15, potassium was low at 3.[address] of her abdomen pelvis performed which showed a mild degree of increased markings at the lung bases suggestive of lingula atelectasis or scarring, no acute abnormality was noted. I discussed the case with Dr. Blas today, it would seem prudent to proceed with cardiac catheterization since the patient had a negative stress test within the past year. Patient will be placed in observation status on PCU, she will be monitored and repeat cardiac enzymes will be obtained, potassium replacement was ordered, labs will be monitored. COUNTS INCLUDE 234 BEDS AT THE [facility] Medical History Anemia Anxiety Anxiety Arthritis Atherosclerotic heart disease of ione coronary artery without angina pectoris Back pain Broken rib Cancer Cardiology follow-up encounter Chronic kidney disease (CKD) stage G3b/A1, moderately decreased glomerular filtration rate (GFR) between 30-44 mL/min/1.73 square meter and albuminuria creatinine ratio less than 30 mg/g Chronic respiratory insufficiency Closed intertrochanteric fracture of left femur COPD (chronic obstructive pulmonary disease) DDD (degenerative disc disease) Diabetes Diabetes mellitus type 2 in obese Diabetic neuropathy Difficulty swallowing DVT (deep venous thrombosis) Essential hypertension Excessive bleeding Fall at home Former smoker Gastric reflux Gastroparesis Gastroparesis GERD (gastroesophageal reflux disease) High cholesterol History of cervical cancer History of CHF (congestive heart failure) History of diverticulitis History of DVT (deep vein thrombosis) History of edema History of heart attack History of Holter monitoring History of IBS History of renal disease History of stress test Hypothyroidism Injury of back Insulin dependent diabetes mellitus Lung nodule Migraine headache Mixed hyperlipidemia On home oxygen therapy PARESH (obstructive sleep apnea) Paroxysmal A-fib Paroxysmal atrial fibrillation Post-menopausal Presence of stent in coronary artery (~12/07/03) Pulmonary embolism Pulmonary embolism Pulmonary hypertension RLS (restless legs syndrome) Sleep apnea Thyroid disease Tinnitus Uses wheelchair Walker as ambulation aid Wears dentures Wears glasses Wears hearing aid Home Medications atorvastatin 40 mg tablet 40 mg PO QHS CHOLESTEROL LOWERING 02/03/18 [History Last Taken 06/03/23] levothyroxine 100 mcg tablet 100 mcg PO DAILY THYROID 02/03/18 [History Last Taken 06/03/23] ascorbic acid (vitamin C) 500 mg tablet 500 mg PO DAILY@1700 supplement 05/17/18 [History Last Taken 06/03/23] aspirin 81 mg tablet,delayed release 81 mg PO DAILY@1700 Heart 09/02/18 [History Last Taken 06/03/23] potassium chloride 10 mEq tablet,extended release 10 meq PO DAILY supplement 06/08/19 [History Last Taken 06/03/23] allopurinol 100 mg tablet 100 mg PO DAILY gout 08/11/19 [History Last Taken 06/03/23] furosemide 20 mg tablet 20 mg PO BID FLUID 10/25/20 [History Last Taken 06/03/23] omeprazole 40 mg capsule,delayed release 40 mg PO DAILY GERD 10/25/20 [History Last Taken 06/03/23] cholecalciferol (vitamin D3) 50 mcg (2,000 unit) capsule 2,000 unit PO DAILY SUPPLEMENT 12/13/20 [History Last Taken 06/02/23] buspirone 10 mg tablet 10 mg PO BID depression 06/12/22 [History Last Taken 06/03/23] duloxetine 60 mg capsule,delayed release 60 mg PO DAILY MENTAL HEALTH 06/12/22 [History Last Taken 06/03/23] fexofenadine 180 mg tablet 180 mg PO DAILY ALLERGIES 06/12/22 [History Last Taken 06/03/23] insulin glargine 100 unit/mL (3 mL) subcutaneous pen (Lantus Solostar U-100 Insulin) 56 unit subcut BID DM 06/12/22 [History Last Taken 06/03/23] insulin lispro 100 unit/mL subcutaneous pen 14 unit subcut BREAKFAST DIABETES 06/12/22 [History Last Taken 06/03/23] insulin lispro 100 unit/mL subcutaneous pen 14 unit subcut LUNCH DIABETES 06/12/22 [History Last Taken 06/02/23] insulin lispro 100 unit/mL subcutaneous pen 24 unit subcut DINNER DIABETES 06/12/22 [History Last Taken 06/02/23] sodium chloride 0.65 % nasal spray aerosol (Saline Mist) 2 spray intranasal TID PRN ALLERGIES 06/12/22 [History Last Taken 06/03/23] nitroglycerin 0.4 mg sublingual tablet 0.4 mg sublingual Q5-15M PRN chest pain #25 tabs 10/21/22 [Rx Last Taken 12/17/22] apixaban 2.5 mg tablet 2.5 mg PO BID Blood thinner 11/12/22 [History Last Taken 06/03/23] albuterol sulfate 90 mcg/actuation aerosol inhaler 2 puff inhalation PRN PRN COPD 12/12/22 [History Last Taken 12/17/22] amlodipine 5 mg tablet 5 mg PO DAILY BP 12/12/22 [History Last Taken 06/03/23] ferrous sulfate 325 mg (65 mg iron) tablet 325 mg PO DAILY SUPPLEMENT 12/12/22 [History Last Taken 06/03/23] isosorbide mononitrate 120 mg tablet,extended release 24 hr 120 mg PO DAILY HEART 12/12/22 [History Last Taken 06/03/23] metoprolol tartrate 100 mg tablet 100 mg PO BID Heart Rate #60 tabs 12/27/22 [Rx Last Taken 06/03/23] alendronate 70 mg tablet 70 mg PO TU BONES 06/03/23 [History Last Taken 06/03/23] buspirone 10 mg tablet 15 mg PO QHS 06/03/23 [History Last Taken 06/02/23] nystatin 100,000 unit/gram topical powder (Nyamyc) 1 applic topical TID PRN SKIN 06/03/23 [History Last Taken Unknown] triamcinolone acetonide 0.1 % topical cream 1 applic topical DAILY PRN SKIN 06/03/23 [History Last Taken 06/01/23] Allergy/AdvReac Type Severity Reaction Status Date / Time metoclopramide [From Reglan] Allergy Intermediate Itching Verified 06/03/23 14:20 ciprofloxacin [From Cipro] Allergy Hives Verified 06/03/23 14:20 latex Allergy matos me Verified 06/03/23 14:20 niacin Allergy Hives Verified 06/03/23 14:20 [From Niaspan Extended-Release] ranolazine [From Ranexa] Allergy Itching Verified 06/03/23 14:20 adhesive tape AdvReac Other Verified 06/03/23 14:20 orphenadrine citrate AdvReac groggy Verified 06/03/23 14:20 [From Norgesic] Family History Mother CAD (coronary artery disease) Father CAD (coronary artery disease) Brother CAD (coronary artery disease) Asthma Sister Hypertension Sister Diabetes Sister Heart disease Surgical History History of cardiac catheterization History of cholecystectomy History of coronary artery stent placement History of hernia repair History of knee surgery History of left heart catheterization (LHC) (~09/28/19) History of nasal surgery History of surgery on wrist History of total abdominal hysterectomy History of tubal ligation Hx of surgical procedure Presence of coronary angioplasty implant and graft (~12/07/03) Social History Smoking Status: Former smoker alcohol intake: never substance use type: does not use caffeine: Yes Type: coffee Number of servings: 1 ROS Constitutional Constitutional: Denies anorexia, change in weight, chills, fatigue, fever(s), night sweats or weakness Eyes Eyes: Denies blurry vision, change in vision, discharge from eye(s) or eye pain Cardiovascular Cardiovascular: Reports chest pain and dyspnea on exertion; Denies claudication, edema or palpitations Respiratory/Chest Respiratory/Chest: Reports shortness of breath with exertion; Denies cough, dyspnea, excessive phlegm production, hemoptysis or shortness of breath at rest Gastrointestinal Gastrointestinal: Denies abdominal pain, constipation, diarrhea, hematemesis, hematochezia, melena, nausea or vomiting Genitourinary Genitourinary: Denies dysuria, hematuria, urinary frequency, urinary hesitancy, urinary incontinence or urinary urgency Musculoskeletal Musculoskeletal: Denies back pain, joint pain, joint stiffness, joint swelling, myalgias or neck pain Neurologic Neurologic: Denies abnormal gait, abnormal speech, confusion, disequilibrium, dizziness, focal weakness, headache(s), loss of vision, numbness, other visual disturbances, paresthesias, syncope or tingling Psychiatric Psychiatric: Denies anxiety, cognitive impairment, depression, irritability, mood swings or suicidal ideation Endocrine Endocrinology: Denies change in body appearance, cold intolerance, excessive sweating, heat intolerance, polydipsia or polyuria Hematologic/Lymphatic Hematologic/Lymphatic: Denies none, anemia, easy bleeding, easy bruising or lymphadenopathy Allergic/Immunologic Allergic/Immunologic: Denies rhinitis, urticaria, eczemia or asthma Vital Signs Vital Signs Vital Signs: 06/03/23 09:47 06/03/23 10:11 06/03/23 13:47 Temperature 98 F 98.3 F Temperature Source Temporal Oral Pulse Rate 90 92 Respiratory Rate 20 H 20 H Respiratory Effort Respiratory Depth Respiratory Pattern Blood Pressure 154/97 H 113/97 H Blood Pressure Mean 116 102 Blood Pressure Source Blood Pressure Position Blood Pressure Location Pulse Ox 96 100 Oxygen Delivery Method Nasal Cannula Nasal Cannula Nasal Cannula Oxygen Flow Rate (L/min) 3 2 4 06/03/23 15:30 06/03/23 20:30 06/03/23 20:30 Temperature 98.3 F Temperature Source Oral Pulse Rate 77 Respiratory Rate 16 18 Respiratory Effort Normal Non-Labored Respiratory Depth Shallow Respiratory Pattern Normal Blood Pressure 149/83 H Blood Pressure Mean 105 Blood Pressure Source Monitor Blood Pressure Position Semi-Fowlers Blood Pressure Location Right Arm Pulse Ox 99 93 96 Oxygen Delivery Method Nasal Cannula Nasal Cannula Nasal Cannula Oxygen Flow Rate (L/min) 3 2 2 Weight Weight: 92.2 kg Body Mass Index (BMI) 38.4 Physical Exam Const alert, oriented x3 and no apparent distress Constitutional Narrative: Patient appears older than her stated age General Appearance: cooperative, well kempt and well developed Orientation / Consciousness: awake, oriented to person, oriented to place and oriented to time HEENT normocephalic, head/scalp atraumatic, hearing grossly normal bilaterally and moist oral mucous membranes Eyes PERRL, EOMs intact bilaterally and conjunctivae normal Neck supple, no JVD, thyroid normal and no carotid bruits General: trachea midline Resp normal respiratory effort, no retractions, no use of accessory muscles and clear to auscultation bilaterally Auscultation: Negative for rales, rhonchi or wheezes Cardio S1 normal heart sound, S2 normal heart sound, no murmurs, no rub and no gallops Cardio Narrative: Heart rate and rhythm is irregular GI normal to inspection, nondistended, normoactive bowel sounds, soft to palpation, non-tender and non-distended Extremity no clubbing, cyanosis or edema Skin no rashes or lesions noted General Skin Exam: no breakdown Neuro oriented x3, CN's II-XII intact bilaterally, no focal motor deficits and no sensory deficits noted Sensorium / Orientation: awake and alert Speech: speech normal Psych affect normal Results Lab / Micro Data 06/03/23 10:00 06/03/23 11:17 Labs: Laboratory Results - last 24 hr 06/03/23 10:00: WBC 8.0, RBC 4.37, Hgb 13.4, Hct 42.0, MCV 96.1, MCH 30.7, MCHC 31.9 L, RDW Std Deviation 49.8 H, RDW Coeff of Aubrey 14.2, Plt Count 244, MPV 10.8, Immature Gran % (Auto) 0.800, Neut % (Auto) 71.5 H, Lymph % (Auto) 13.0 L, Coal % (Auto) 8.8, Eos % (Auto) 5.5 H, Baso % (Auto) 0.4, Absolute Neuts (auto) 5.7, Absolute Lymphs (auto) 1.04, Nucleated RBC % 0, Sodium Cancelled, Potassium Cancelled, Chloride Cancelled, Carbon Dioxide Cancelled, Anion Gap Cancelled, BUN Cancelled, Creatinine Cancelled, Estim Creat Clear Calc Cancelled, Est GFR (MDRD) Af Amer Cancelled, Est GFR (MDRD) Non-Af Cancelled, BUN/Creatinine Ratio Cancelled, Glucose Cancelled, Calcium Cancelled, Total Bilirubin Cancelled, Direct Bilirubin Cancelled, AST Cancelled, ALT Cancelled, Alkaline Phosphatase Cancelled, Troponin I High Sens Cancelled, Total Protein Cancelled, Albumin Cancelled, Globulin Cancelled, Lipase Cancelled 06/03/23 11:17: Sodium 141, Potassium 3.3 L, Chloride 105, Carbon Dioxide 34.0 H, Anion Gap 2 L, BUN 21 H, Creatinine 1.15 H, Estim Creat Clear Calc 35.33, Est GFR (MDRD) Af Amer 60, Est GFR (MDRD) Non-Af 50 L, BUN/Creatinine Ratio 18.3, Glucose 89, Calcium 8.5, Total Bilirubin 0.90, Direct Bilirubin 0.42 H, AST 21, ALT 19, Alkaline Phosphatase 83, Troponin I High Sens 10, Total Protein 7.9, Albumin 3.1 L, Globulin 4.8 H, Lipase 21 06/03/23 13:30: Troponin I High Sens 10 06/03/23 17:10: POC Glucose 81 06/03/23 17:11: Troponin I High Sens 9 Radiology Impression Chest/Abdomen/Pelvis CT 06/03/23 10:02 IMPRESSION: Mild degree of increased markings at the lung bases suggestive of either atelectasis and/or scarring. Small left renal cyst. Prior ventral hernia repair. Atherosclerotic calcific plaques of the thoracic and abdominal aorta. Status post cholecystectomy with dilated intrahepatic biliary ducts and common bile duct. Electronically Signed: Bentley Montejo MD at 12:37 EDT , Chest X-Ray 06/03/23 11:15 IMPRESSION: Cardiomegaly. The lungs are clear. Electronically Signed: Bentley Montejo MD at 12:04 EDT , Assessment & Plan Assessment/Plan (1) Chest pain: QUALIFIERS: Chest pain type: chest pain due to myocardial ischemia Ischemic chest pain type: unstable angina pectoris Qualified Code(s): I20.0 - Unstable angina PLAN: Plan 1. Precordial chest pain in a patient with known coronary artery disease-patient will be placed in observation status on PCU, cardiac enzymes will be cycled, patient will be seen in consultation by cardiology, she will undergo cardiac catheterization tomorrow, she will be monitored on telemetry #2 permanent atrial fibrillation-patient's Eliquis will be held for her cardiac catheterization, patient is on rate control medication, this will be continued #3 type 2 diabetes-patient's blood sugars will be monitored with fingerstick blood sugars, sliding scale insulin will be given as necessary #4 hypothyroidism-patient will remain on Synthroid #5 chronic obstructive pulmonary disease-patient was placed on albuterol aerosols as needed, she does not use an inhaler on a regular basis, she does use a rescue inhaler #6 chronic hypoxic respiratory failure-patient is on chronic oxygen, pulse ox will be monitored #7 hyperlipidemia-patient is on Lipitor, this will be continued during her hospitalization #8 chronic depression-patient is currently on Cymbalta, this will be continued #9 hypokalemia-patient will be given potassium replacement, labs will be monitored Total clinical time spent by myself addressing the patient's medical issues, reviewing all of her data, and collaborating with the patient's care team: 55 minutes Charges/Coding Visit Charges Inpatient E&M: 30210 Init Hosp L2
[2023-06-03] MEDS: Nitroglycerin (INPATIENT USE) 0.4 MG TAB.SUBL SL ×3 (21:38→21:50)
--- NOTE | 2023-06-03 21:39 | EKG12_ITS ---
Test Reason : CP Blood Pressure : / mmHG Vent. Rate : 105 BPM Atrial Rate : 000 BPM P-R Int : 000 ms QRS Dur : 072 ms QT Int : 368 ms P-R-T Axes : 000 -19 104 degrees QTc Int : 486 ms Atrial fibrillation with rapid ventricular response with premature ventricular or aberrantly conducte d complexes Nonspecific ST and T wave abnormality Abnormal ECG When compared with ECG of 03-JUN-2023 11:04, MANUAL COMPARISON REQUIRED, DATA IS UNCONFIRMED Confirmed by ALETA ABRAHAM, ALVAREZ ([id number]), editor book YAN SUH ([id number]) on 07/02/2023 1:52:27 PM Referred By: DR ANAYA Confirmed By:ALVAREZ RIVER MD
[2023-06-03] MEDS: 0.9% Saline Lock 10 ML Syringe IV ×2 (21:40→22:10)
[2023-06-03] MEDS: Morphine 4 MG/ML Syringe 3 MG IV (22:08)
[2023-06-03] MEDS: Atorvastatin Calcium 40 MG Tablet PO (22:29)
[2023-06-03] MEDS: busPIRone 15 MG TABLET PO (22:29)
[2023-06-03] MEDS: Metoprolol Tartrate 100 MG Tablet PO (22:29)
[2023-06-03] MEDS: Insulin Glargine-YFGN 100 UNIT/ML Pen 10 UNIT SC (22:55)
[2023-06-03] MEDS: Insulin Lispro 100 UNIT/ML INSULN.PEN SC (23:08)
[2023-06-03 23:23] LABS: Bedside Glucose 156 mg/dL (74-106)
[2023-06-04] VITALS (17 sets, daily range): BP systolic 102–141; BP diastolic 59–90; PULSE 65–136; RESP 15–19; TEMP 36.4–37.5; O2SAT 97–100
[2023-06-04] MEDS: 0.9% Normal Saline (1000mL) 1,000 ML 15 ML IV (04:51)
[2023-06-04] MEDS: amLODIPine 5 MG Tablet PO (05:45)
[2023-06-04] MEDS: Metoprolol Tartrate 100 MG Tablet PO ×2 (05:46→22:12)
[2023-06-04] MEDS: Levothyroxine 100 MCG Tablet PO (05:46)
--- NOTE | 2023-06-04 05:55 | EKG12_ITS ---
Test Reason : AM EKG Blood Pressure : / mmHG Vent. Rate : 075 BPM Atrial Rate : 000 BPM P-R Int : 000 ms QRS Dur : 074 ms QT Int : 432 ms P-R-T Axes : 000 -16 122 degrees QTc Int : 482 ms Atrial fibrillation with premature ventricular or aberrantly conducted complexes Nonspecific T wave abnormality Prolonged QT Abnormal ECG When compared with ECG of 03-JUN-2023 21:42, MANUAL COMPARISON REQUIRED, DATA IS UNCONFIRMED Confirmed by ALETA ABRAHAM, ALVRAEZ ([id number]), tape editor YAN SUH ([id number]) on 07/02/2023 1:52:14 PM Referred By: Confirmed By:ALVAREZ RIVER MD
[2023-06-04 06:43] LABS: Bedside Glucose 137 mg/dL (74-106)
[2023-06-04 08:09] LABS: Anion Gap 3 (5-15); BUN 16 mg/dL (7-18); BUN/Creat Ratio 13.1 RATIO (10-20); Calcium,Total 8.9 mg/dL (8.5-10.1); Chloride 105 mmol/L (98-107); Creatinine, Serum 1.22 mg/dL (0.55-1.02); EST Glomerular Filtration Rate 47 mL/min (>60); Est Glom Filt Rate - Afr Amer 56 mL/min (>60); Glucose 128 mg/dL (74-106); Potassium 3.6 mmol/L (3.5-5.1); Sodium Level 138 mmol/L (136-145)
--- NOTE | 2023-06-04 13:15 | PCM.PN.CARD ---
Subjective Subjective Patient seen and evaluated. Underwent cardiac catheterization today Objective Data Vital Signs: Vital Signs Temp Pulse Resp BP Pulse Ox O2 Del Method O2 Flow Rate 98 F 67 18 108/59 L 97 Nasal Cannula 2 06/04/23 10:35 06/04/23 10:35 06/04/23 10:35 06/04/23 10:35 06/04/23 10:35 06/04/23 10:35 06/04/23 10:35 Oxygen Flow Rate (L/min) 2 Oxygen Delivery Method Nasal Cannula Weight: 203 lb 4.259 oz Body Mass Index (BMI) 38.4 Intake & Output: Intake and Output for Last 24 Hours 06/02/23 06/03/23 06/04/23 23:59 23:59 23:59 Intake Total 1000 / 1000 Balance 1000 / 1000 Lab / Micro Data 06/03/23 10:00 06/04/23 06:47 Labs: Laboratory Results - last 24 hr 06/03/23 13:30: Troponin I High Sens 10 06/03/23 17:10: POC Glucose 81 06/03/23 17:11: Troponin I High Sens 9 06/03/23 22:53: POC Glucose 156 H 06/04/23 06:09: POC Glucose 137 H 06/04/23 06:47: Sodium 138, Potassium 3.6, Chloride 105, Carbon Dioxide 30.0, Anion Gap 3 L, BUN 16, Creatinine 1.22 H, Estim Creat Clear Calc 33.30, Est GFR (MDRD) Af Amer 56 L, Est GFR (MDRD) Non-Af 47 L, BUN/Creatinine Ratio 13.1, Glucose 128 H, Calcium 8.9 Cardiology Labs/Tests 06/04/23 06:47: Sodium 138, Potassium 3.6, Chloride 105, Carbon Dioxide 30.0, Anion Gap 3 L, BUN 16, Creatinine 1.22 H, Est GFR (MDRD) Af Amer 56 L, Est GFR (MDRD) Non-Af 47 L, BUN/Creatinine Ratio 13.1, Glucose 128 H, Calcium 8.9 Rhythm: EKG: ECHO: Stress Test: Cardiac Cath: PCI: CT Surgery: Holter monitor: EPS: PPM: CXR: Chest CT Scan: Radiography Diagnostic Testing: Radiology Impression Echocardiogram 06/03/23 17:39 Interpretation Summary Normal LV size. Left ventricular systolic function is normal. The estimated ejection fraction is 65 %. Contrast injection was performed. Ordering Physician: Bart Blas Performed By: Nikki Jaffe RDCS Physical Exam Const alert, oriented x3 and no apparent distress General Appearance: cooperative HEENT hearing grossly normal bilaterally Head and Scalp: atraumatic Eyes EOMs intact bilaterally Neck General: normal visual inspection Chest inspection of chest normal and palpation of chest normal Resp normal respiratory effort Auscultation: clear to auscultation bilaterally Cardio regular rate, regular rhythm, S1 normal heart sound and S2 normal heart sound Jugular Venous Distention: JVD GI normal to inspection, nondistended, normoactive bowel sounds Extremity normal capillary refill and no pedal edema Peripheral Pulses: Yes pulses 2+ throughout and femoral pulses present Skin no rashes or lesions noted Neuro oriented x3 and CN's II-XII intact bilaterally Psych Appearance: grossly normal and appropriate Assessment & Plan Assessment/Plan (1) Atrial fibrillation: QUALIFIERS: Atrial fibrillation type: persistent (not longstanding) Qualified Code(s): I48.19 - Other persistent atrial fibrillation PLAN: She does have chronic persistent atrial fibrillation with a controlled ventricular response rate at this particular time. My recommendation will be for her to continue the anticoagulation after her upcoming procedure. She will also continue on the beta-sudhakar. Echocardiogram demonstrated preserved left ventricular systolic function.. (2) Presence of stent in coronary artery: PLAN: She does have a previous stent and presents with chest discomfort. It is difficult to tell whether this is anginal or not. She did have a stress test which demonstrated no evidence of ischemia before over 12 months ago. Cardiac catheterization demonstrated evidence of in-stent stenosis in the diagonal vessel and mid LAD stenosis for which we will consider PCI. (3) Essential hypertension: PLAN: Her blood pressure appears to be under good control at this particular time and I would not recommend that we make any changes. (4) Chest pain: QUALIFIERS: Chest pain type: chest pain due to myocardial ischemia Ischemic chest pain type: unstable angina pectoris Qualified Code(s): I20.0 - Unstable angina PLAN: She does present with chest discomfort which appears to have borderline features. There are some atypical features but in addition she does have a previous coronary disease history and some features which typical. She will continue with aggressive therapy and the cardiac catheterization demonstrated evidence of mid LAD stenosis as well as in-stent stenosis of the diagonal vessel. Thank you for allowing me to participate in the care of your patient. Please don't hesitate to call if any issues arise.
--- NOTE | 2023-06-04 13:32 | CL.D_ITS ---
Patient Name: RUI PANDA Study Date: 06/04/2023 Performing: Bart Blas MD Ht: 61 inches 154.94 cm : 1955 Wt: 203.27 lbs 92.2 kg Age: 68 Gender: female BSA: 1.9 PROCEDURE(S) PERFORMED DC01-(74589)LHC/COR/LV IC12-(43622/C9600)SU W/WO PTCA, SINGLE CORONARY ARTERY IC01-([id number])PTCA, SINGLE CORONARY ARTERY CLINICAL PROFILE AND INDICATIONS Indications: Suspected CAD Heart Failure: None Stress/Imaging Date: 10/30/22 CAD Presentations: Stable angina. CONCLUSIONS Previously placed stent in the diagonal vessel with in-stent stenosis in mid LAD noted with 70 to 80% stenosis and diffuse distal right coronary artery posterior descending artery stenosis of 80% not amenable to angioplasty. RECOMMENDATIONS PCI recommended to the mid LAD and the diagonal vessel. DESCRIPTION OF PROCEDURE The patient arrived to the procedure lab. The risks and benefits of the procedure as well as a full description of our services here and current unavailability of surgical backup were fully explained to the patient and/or their significant other prior to the catheterization. The Timeout was completed, verifying the correct patient and procedure. The patient's procedural site was prepped and draped in the usual fashion. Local anesthetic was given subcutaneously to right radial region with Lidocaine 2%. Using a modified Seldinger technique, arterial access was obtained via the right radial artery, a 6Fr sheath was inserted. Right Coronary Artery selective angiography was then performed in multiple views using a 5 Fr. 4.0 [place] catheter. Left Coronary Artery selective angiography was performed in multiple views using a 5 Fr. 4.0 [place] catheter. Left Ventriculography was performed in DEL CID projection using a 5 Fr. Pigtail catheter.The arterial sheath was pulled and a TR Band was applied for hemostasis CORONARY ANGIOGRAPHY DOMINANCE: Right Dominant LEFT HEART ASSESSMENT Left Ventricular Ejection Fraction: by LV Gram 60 % Normal LV wall motion Normal Left Ventricular systolic function LEFT MAIN: Ostial 20% stenosis LEFT ANTERIOR DESCENDING ARTERY: Mildly diffusely diseased and 70% mid segment stenosis with moderate disease at the bifurcation of a diagonal vessel. DIAGONAL 1: Mid - Diagonal vessel with a previous stent with 80% in-stent stenosis CIRCUMFLEX ARTERY: MID CIRC: is occluded DISTAL CIRC: Faint collateral filling RIGHT CORONARY ARTERY: Mild diffuse disease noted with posterior descending artery demonstrating diffuse 80% stenosis COMPLICATIONS No Complications PROCEDURE MEDICATIONS Fentanyl 50 mcg IV Versed 1 mg IV Oxygen: 4 L/min via nasal cannula Baby Aspirin (81mg) 1 Tabs PO 06/04/2023 12:04:26 Brilinta 180 mg PO @ 06/04/2023 12:38:33 Heparin given IA 06/04/2023 12:19:31 Heparin 1000 unit(s) IV 06/04/2023 12:49:53 Verapamil 2.5mg, Ntg 100mcgs, 3000 units of Heparin given IA 06/04/2023 12:19:31 IV Bolus: .9 NaCl 250 ml total 06/04/2023 13:10:52 SUMMARY OF HEMODYNAMIC DATA Time AIR REST ECG 12:01:28 AO 119/82 (99) SA 12:25:51 LV 129/23, 28 12:35:14 LV 119/17, 33 12:35:20 LV 103/21, 28 12:35:58 LVp 102/23, 26 12:36:03 AOp 111/59 (79) 12:36:08 AO 132/84 (105) 12:48:20 13:23:54 Signed By Bart Blas MD On 06/04/2023 13:32:24 Bart Blas MD
--- NOTE | 2023-06-04 13:38 | CRPHASE1_ITS ---
Patient Communication Patient Information Former Patient:: Phase I and Phase II PHII Cardiac Rehab Discussed with Patient:: Yes Guide to Cardiac Rehab Given to Patient:: Yes Cardiac Rehab Facility Choice List Given to Patient:: Yes Communication to Cardiac Rehab Slide Machine Tender:: Tarun Kennedy Refer Phase II Cardiac Rehab:: Yes Medical/Surgical History Medical History Angina:: Yes CAD:: Yes Congestive Heart Failure: Valve Disease/Replacement:: No COPD:: Yes Diabetes:: Yes Diabetes Type I:: No Diabetes Type II:: Yes Dyslipidemia:: Yes Arrhythmias:: Yes (A fib) CVA/TIA: PE:: Yes DVT:: Yes Cancer:: Yes Renal:: Yes Thyroid:: Yes Anxiety:: Yes Surgical History CABG: No ICD:: No Pacemaker:: No Cardiac Rehabilitation Info Program Information Cardiac Rehabilitation Program Information: Cardiac Rehab The cardiac rehab team at [facility] consists of highly skilled exercise physiologists, nurses, respiratory therapists and physicians working together with you. Our purpose is to help you have a full recovery and achieve the goals you set for yourself. Over the years many of our patients have returned to activities they assumed they would never do again! We can help restore your confidence and motivation to make lifestyle changes that can have a significant impact on your health and quality of life! We can help answer questions and concerns you may have about exercise, lifestyle, medications, diet, stress and anxiety which are common following a hospitalization. WE monitor ECG and vital signs during exercise and discuss your progress with you and report to your physician(s). Cardiac Rehab is proven to help reduce readmissions, improve functional capacity and lower recurrence of problems with your heart. Our Cardiac Rehab program is Certified by the [place] [employer] ([employer]ACVPR) and Accredited by the [place] [employer] through our [facility]. You can contact us at . We invite you to call us with your questions or to get started in our program. If you have other questions or concerns be sure to ask your physician/provider during your follow-up visit. WE look forward to seeing you!
--- NOTE | 2023-06-04 13:40 | CRPH1.INSTRU ---
General Education Discussed with Patient CAD and cardiac anatomy and function:: Patient communicates acknowledgment Explanation of diagnoses and procedures:: Patient communicates acknowledgment Sign/Symptoms of MO:: Patient communicates acknowledgment Antiplatelet therapy: Patient communicates acknowledgment Proper use of NTG-SL: Patient communicates acknowledgment Emergency procedures and activation of EMS: Patient communicates acknowledgment Compliance of all prescribed medications: Patient communicates acknowledgment Smoking Recommendations Recommendations Include:: Previous smoker; encourage continued cessation Response Code Nicotine/Smoking Response Code:: Patient communicates acknowledgment Dyslipidemia Recommendations Recommendations Include:: Lipid profile not available Response Code Dyslipidemia Response Code:: Patient communicates acknowledgment Overweight/Obesity Risk Factors Patient Overweight/Obesity Risk Factors Are:: Obesity - > or = 30 Recommendations Recommendations Include:: Weight loss of 5-10%, Reduced calorie diet and Exercise 5-7 times/week Response Code Overweight/Obesity:: Patient communicates acknowledgment Hypertension Recommendations Recommendations Include:: Maintain BP <130/85 Response Code Hypertension:: Patient communicates acknowledgment Heart Disease Risk Factors Patient Heart Disease Risk Factors Are:: Previous cardiac event Recommendations Recommendations Include:: Educated family members of their risk and Educated family members of importance of prevention of heart disease Response Code Heart Disease Response Code:: Patient communicates acknowledgment Diabetes Recommendations Recommendations Include:: Maintain fasting blood sugars 70-110 md/dL, Maintain HgbA1c of 6% or less, Monitor blood sugar as prescribed, Diabetic dietary guidelines and Decrease/maintain body weight Response Code Diabetes:: Patient communicates acknowledgment Metabolic Syndrome Recommendations Recommendations Include:: Does not meet criteria Response Code Metabolic Syndrome Response Code:: Patient communicates acknowledgment Sedentary Risk Factors Patient Sedentary Risk Factors Are:: Lack of regular exercise Recommendations Recommendations Include:: Aerobic exercise 5-7 times/week for 20-30 minutes continuously, Benefits of regular exercise, Discussed home walking program and Monitored Outpatient Cardiac Rehab Response Code Sedentary Response Code:: Patient communicates acknowledgment Stress Recommendations Recommendations Include:: Identification of stressors, and assessment of coping skills and Stress management techniques Response Code Stress Response Code:: Patient communicates acknowledgment
--- NOTE | 2023-06-04 13:51 | EKG12_ITS ---
Test Reason : POST PCI Blood Pressure : / mmHG Vent. Rate : 074 BPM Atrial Rate : 000 BPM P-R Int : 000 ms QRS Dur : 072 ms QT Int : 422 ms P-R-T Axes : 000 -15 087 degrees QTc Int : 468 ms Atrial fibrillation Nonspecific ST and T wave abnormality Abnormal ECG When compared with ECG of 04-JUN-2023 05:35, MANUAL COMPARISON REQUIRED, DATA IS UNCONFIRMED Confirmed by ALETA ABRAHAM, ALVAREZ ([id number]), book editor YAN SUH ([id number]) on 07/02/2023 1:50:35 PM Referred By: PAMELA Confirmed By:ALVAREZ RIVER MD
--- NOTE | 2023-06-04 13:56 | CL.I_ITS ---
Patient Name: RUI PANDA Study Date: 06/04/2023 Performing: Cristina Kennedy MD Ht: 61 inches 154.94 cm : 1955 Wt: 203.27 lbs 92.2 kg Age: 68 Gender: female BSA: 1.9 PROCEDURE(S) PERFORMED IC12-(97104/C9600)SU W/WO PTCA, SINGLE CORONARY ARTERY IC01-([id number])PTCA, SINGLE CORONARY ARTERY CLINICAL PROFILE AND CO-MORBIDITIES Indications: Suspected CAD Heart Failure: None Stress/Imaging Date: 10/30/22 CAD Presentations: Stable angina. CONCLUSIONS Successful drug-eluting stent to mid LAD and PTCA alone to in-stent restenosis of diagonal 1 RECOMMENDATIONS DESCRIPTION OF PROCEDURE The patient arrived to the procedure lab. The risks and benefits of the procedure as well as a full description of our services here and current unavailability of surgical backup were fully explained to the patient and/or their significant other prior to the catheterization. The Timeout was completed, verifying the correct patient and procedure. The patient's procedural site was prepped and draped in the usual fashion. Local anesthetic was given subcutaneously to right radial region with Lidocaine 2% Using a modified Seldinger technique,arterial access was obtained via the right radial artery, a 6Fr sheath was inserted. Right Coronary Artery selective angiography was then performed in multiple views using a 5 Fr. 4.0 [place] catheter. Left Coronary Artery selective angiography was performed in multiple views using a 5 Fr. 4.0 [place] catheter. Left Ventriculography was performed in DEL CID projection using a 5 Fr. Pigtail catheter.The images were reviewed and options discussed. A decision was then made to proceed with an Intervention, IVUS or other adjunct procedure. XB3 Guide catheter was inserted and engaged into the LCA. BMW Guide wire was advanced to the LAD. 2.25 x 18 Rillito Drug Eluting stent was advanced across the lesion in the LAD, mid. 2.25 x 8 Emerge Balloon catheter was advanced across lesion in the first diagonal, mid. PTCA balloon inflated at 10 atms for 15 secs. Angiogram performed post stent deployment. The arterial sheath was pulled and a TR Band was applied for hemostasis INTERVENTION INFORMATION LESION SITE: LAD (Mid) Lesion Complexity: High/C, chronic total occlusion: No, lesion at bifurcation: No, thrombus present: No, lesion length: 16 mm, culprit lesion: Yes, Previously treated lesion: No Pre Stenosis: 90 % Pre intervention SYLVIE flow: 3 PROCEDURE: Drug Eluting Stent Post Stenosis: 0 % Post intervention SYLVIE flow: 3 Lesion Devices: Vargas .014 190cm BMW Johnson Straight Cordis 6 Fr XB3.0 100cm Guide Catheter Medtronic Resolute Jorge RX SU 2.25x18 LESION SITE: 1st Diagonal (Mid) Lesion Complexity: High/C, chronic total occlusion: No, lesion at bifurcation: No, thrombus present: No, lesion length: 8 mm, culprit lesion: Yes, Previously treated lesion: Yes, In-stent restenosis: Yes, Timeframe of previous treatment: Time unknown, Previously treated with a stent: Yes Stent Type: with stent type unknown, In-stent Thrombosis: No Pre Stenosis: 70-80 % Pre intervention SYLVIE flow: 3 PROCEDURE: Balloon Angioplasty Patient flexed her arm and elbow disengaging the guide catheter. We lost wire position in the process. We engaged the left main again and obtained post angioplasty pictures. At this point we felt that we had good angioplasty result and did not proceed with further interventions. Post Stenosis: 50 % Post intervention SYLVIE flow: 3 Lesion Devices: Vargas .014 190cm BMW Johnson Straight Cordis 6 Fr XB3.0 100cm Guide Catheter Brian Sci EMERGE MR 2.25x08 BALLOON COMPLICATIONS No Complications PROCEDURE MEDICATIONS Fentanyl 50 mcg IV Versed 1 mg IV Oxygen: 4 L/min via nasal cannula Baby Aspirin (81mg) 1 Tabs PO 06/04/2023 12:04:26 Brilinta 180 mg PO @ 06/04/2023 12:38:33 Heparin given IA 06/04/2023 12:19:31 Heparin 1000 unit(s) IV 06/04/2023 12:49:53 Verapamil 2.5mg, Ntg 100mcgs, 3000 units of Heparin given IA 06/04/2023 12:19:31 IV Bolus: .9 NaCl 250 ml total 06/04/2023 13:10:52 SUMMARY OF HEMODYNAMIC DATA Time AIR REST ECG 12:01:28 AO 119/82 (99) SA 12:25:51 LV 129/23, 28 12:35:14 LV 119/17, 33 12:35:20 LV 103/21, 28 12:35:58 LVp 102/23, 26 12:36:03 AOp 111/59 (79) 12:36:08 AO 132/84 (105) 12:48:20 AIR REST 13:23:54 Signed By Cristina Kennedy MD On 06/04/2023 13:55:38 Cristina Kennedy MD
[2023-06-04 14:05] LABS: Bedside Glucose 83 mg/dL (74-106)
[2023-06-04] MEDS: 0.9% Normal Saline (1000mL) 1,000 ML 60 ML IV (15:05)
--- NOTE | 2023-06-04 16:09 | PCM.PN.HOSP ---
Subjective Subjective No issues overnight, doing well. Objective Data Objective Data Vital Signs: Vital Signs Temp Pulse Resp BP Pulse Ox O2 Del Method O2 Flow Rate 97.5 F L 69 18 111/71 100 Nasal Cannula 2 06/04/23 13:35 06/04/23 15:15 06/04/23 15:15 06/04/23 15:15 06/04/23 15:15 06/04/23 15:15 06/04/23 15:15 Oxygen Flow Rate (L/min) 2 Oxygen Delivery Method Nasal Cannula Weight: 203 lb 4.259 oz Body Mass Index (BMI) 38.4 Intake & Output: Intake and Output for Last 24 Hours 06/03/23 06/04/23 06/05/23 03:59 03:59 03:59 Intake Total 1000 / 1000 153.5 / 153.5 Balance 1000 / 1000 153.5 / 153.5 Lab / Micro Data 06/03/23 10:00 06/04/23 06:47 Labs: Laboratory Results - last 24 hr 06/03/23 17:10: POC Glucose 81 06/03/23 17:11: Troponin I High Sens 9 06/03/23 22:53: POC Glucose 156 H 06/04/23 06:09: POC Glucose 137 H 06/04/23 06:47: Sodium 138, Potassium 3.6, Chloride 105, Carbon Dioxide 30.0, Anion Gap 3 L, BUN 16, Creatinine 1.22 H, Estim Creat Clear Calc 33.30, Est GFR (MDRD) Af Amer 56 L, Est GFR (MDRD) Non-Af 47 L, BUN/Creatinine Ratio 13.1, Glucose 128 H, Calcium 8.9 06/04/23 13:45: POC Glucose 83 Radiography Diagnostic Testing: Radiology Impression Echocardiogram 06/03/23 17:39 Interpretation Summary Normal LV size. Left ventricular systolic function is normal. The estimated ejection fraction is 65 %. Contrast injection was performed. Ordering Physician: Bart Blas Performed By: Nikki Jaffe REJI Physical Exam Narrative General: Alert, Oriented x3, Cooperative, No apparent distress HEENT: Atraumatic, PERRLA, EOMI, Normocephalic Oral: Moist Mucosa Neck: Supple, No JVD Lungs: Diminished, Normal air movement, No rhonchi, No wheeze, No rales Cardiovascular: Regular rate, Regular Rhythm, Normal S1, Normal S2, No murmurs Abdomen: Soft, Non Tender, Non-Distended, No Hepato-splenomegaly Extremities: No edema, Capillary Refill Less than 3 Seconds Skin: No rashes, No breakdown Musculoskeletal: No Tenderness to Palpation of Joints or Extremities Neurological: Cranial nerves II-XII grossly intact, Motor Exam 5/5 strength throughout, Sensory exam intact to light touch and pain Psych/Mental Status: Normal Affect, Appropriate Assessment & Plan Assessment/Plan (1) Chest pain: QUALIFIERS: Chest pain type: chest pain due to myocardial ischemia Ischemic chest pain type: unstable angina pectoris Qualified Code(s): I20.0 - Unstable angina PLAN: Plan 1. Chest pain with CAD and previous stent/HTN/HLD/A-fib ? We will plan for cardiac cath today, will continue to hold her Eliquis ? Appreciate cardiology's assistance ? We will continue with blood pressure medications and make adjustments as necessary 2. Chronic hypoxic respiratory failure due to COPD ? Continue with her home oxygen as well as her home medications 3. DM2 ? Continue with sliding scale insulin and Lantus, Accu-Chek ACHS ? We will monitor and make adjustments as necessary 4. Hypothyroidism ? Stable ? Continue with Synthroid 5. Anxiety/depression ? Stable ? Continue with her home medications 6. GERD ? Stable ? Continue with PPI DVT: SCD Charges/Coding Visit Charges Inpatient E&M: 41199 Subs Hosp L2
--- NOTE | 2023-06-04 16:23 | CHAPLAIN ---
Type of Pastoral Visit _x__ Initial Visit ___ Follow-up Visit ___ On-call Visit ___ General Patient Visit ___ Spiritual Assessment ___ Family Conference ___ Bereavement ___ Rapid Response ___ Code Blue ___ Other (describe below) Pastoral Care Referral From _x__ Patient ___ Family ___ Nurse ___ Physician ___ Jackerman ___ Bulk Plant Supervisor ___ Other (describe below) Sacrament/Intervention _x__ Active listening ___ Anointing ___ Hoahaoism ___ Bereavement ___ Communion ___ Eileen exploration ___ ___ Life review _x__ Prayer ___ Reconciliation ___ Sacrament of Sick _x__ Supportive presence ___ Wedding ___ Other (describe below) Pastoral Comments patient awakens to her name but has some difficulty answering a few of the questions given to her; pt does identify the other three people in the room and asks for prayers for them because they all have issues; pt responds that just pray when asked about her needs; offer of ongoing support given as desired
--- NOTE | 2023-06-04 17:03 | CASEMGMT ---
Met with patient and family to complete FRAZIER form. FRAZIER form explained to patient who voiced understanding. Patient requested that daughter sign form. Original form placed in pt?s chart and copy provided to patient. Irene Mcghee, Discharge Planning Asst.
[2023-06-04] MEDS: busPIRone 5 MG Tablet 10 MG PO (17:10)
[2023-06-04] MEDS: Pantoprazole Sodium 40 MG Tablet PO (17:13)
[2023-06-04] MEDS: DULoxetine Hcl 60 MG Capsule PO (17:13)
[2023-06-04] MEDS: Aspirin E.C. 81 MG Tablet PO (17:14)
[2023-06-04 17:41] LABS: Bedside Glucose 98 mg/dL (74-106)
[2023-06-04] MEDS: Morphine 4 MG/ML Syringe 3 MG IV (20:58)
[2023-06-04] MEDS: 0.9% Saline Lock 10 ML Syringe IV (21:00)
[2023-06-04] MEDS: TICAGRELOR 90 MG TABLET PO (22:03)
[2023-06-04] MEDS: Atorvastatin Calcium 40 MG Tablet PO (22:05)
[2023-06-04] MEDS: Insulin Lispro 100 UNIT/ML INSULN.PEN SC (22:10)
[2023-06-04] MEDS: Insulin Glargine-YFGN 100 UNIT/ML Pen 10 UNIT SC (22:11)
[2023-06-04] MEDS: busPIRone 15 MG TABLET PO (22:19)
[2023-06-04 23:04] LABS: Bedside Glucose 256 mg/dL (74-106)
[2023-06-05] VITALS (9 sets, daily range): BP systolic 96–123; BP diastolic 51–84; PULSE 80–102; RESP 13–18; TEMP 36.2–37.1; O2SAT 2–100
[2023-06-05] MEDS: Levothyroxine 100 MCG Tablet PO (05:46)
[2023-06-05 07:13] LABS: Bedside Glucose 158 mg/dL (74-106)
--- NOTE | 2023-06-05 07:21 | PCM.PN.CARD ---
Subjective Subjective Patient seen and evaluated. Appears to be doing well sleeping. Objective Data Vital Signs: Vital Signs Temp Pulse Resp BP Pulse Ox O2 Del Method O2 Flow Rate 98.5 F 83 16 100/54 L 100 Nasal Cannula 2 06/05/23 05:43 06/05/23 05:43 06/05/23 05:43 06/05/23 05:43 06/05/23 05:43 06/05/23 05:43 06/05/23 05:43 Oxygen Flow Rate (L/min) 2 Oxygen Delivery Method Nasal Cannula Weight: 203 lb 4.259 oz Body Mass Index (BMI) 38.4 Intake & Output: Intake and Output for Last 24 Hours 06/03/23 06/04/23 06/05/23 23:59 23:59 23:59 Intake Total 1000 / 1000 153.5 / 153.5 970 / 970 Balance 1000 / 1000 153.5 / 153.5 970 / 970 Lab / Micro Data 06/03/23 10:00 06/04/23 06:47 Labs: Laboratory Results - last 24 hr 06/04/23 06:47: Sodium 138, Potassium 3.6, Chloride 105, Carbon Dioxide 30.0, Anion Gap 3 L, BUN 16, Creatinine 1.22 H, Estim Creat Clear Calc 33.30, Est GFR (MDRD) Af Amer 56 L, Est GFR (MDRD) Non-Af 47 L, BUN/Creatinine Ratio 13.1, Glucose 128 H, Calcium 8.9 06/04/23 13:45: POC Glucose 83 06/04/23 17:08: POC Glucose 98 06/04/23 22:08: POC Glucose 256 H 06/05/23 06:52: POC Glucose 158 H Cardiology Labs/Tests 06/04/23 06:47: Sodium 138, Potassium 3.6, Chloride 105, Carbon Dioxide 30.0, Anion Gap 3 L, BUN 16, Creatinine 1.22 H, Est GFR (MDRD) Af Amer 56 L, Est GFR (MDRD) Non-Af 47 L, BUN/Creatinine Ratio 13.1, Glucose 128 H, Calcium 8.9 Rhythm: EKG: ECHO: Stress Test: Cardiac Cath: PCI: CT Surgery: Holter monitor: EPS: PPM: CXR: Chest CT Scan: Radiography Diagnostic Testing: Radiology Impression Echocardiogram 06/03/23 17:39 Interpretation Summary Normal LV size. Left ventricular systolic function is normal. The estimated ejection fraction is 65 %. Contrast injection was performed. Ordering Physician: Bart Blas Performed By: Nikki Jaffe RDCS Physical Exam Const alert, oriented x3 and no apparent distress General Appearance: cooperative HEENT hearing grossly normal bilaterally Head and Scalp: atraumatic Eyes EOMs intact bilaterally Neck General: normal visual inspection Chest inspection of chest normal and palpation of chest normal Resp normal respiratory effort Auscultation: clear to auscultation bilaterally Cardio regular rate, regular rhythm, S1 normal heart sound and S2 normal heart sound Jugular Venous Distention: JVD GI normal to inspection, nondistended, normoactive bowel sounds Extremity normal capillary refill and no pedal edema Peripheral Pulses: Yes pulses 2+ throughout and femoral pulses present Skin no rashes or lesions noted Neuro oriented x3 and CN's II-XII intact bilaterally Psych Appearance: grossly normal and appropriate Assessment & Plan Assessment/Plan (1) Atrial fibrillation: QUALIFIERS: Atrial fibrillation type: persistent (not longstanding) Qualified Code(s): I48.19 - Other persistent atrial fibrillation PLAN: She does have chronic persistent atrial fibrillation with a controlled ventricular response rate at this particular time. My recommendation will be for her to continue the anticoagulation after her upcoming procedure. She will also continue on the beta-sudhakar. Echocardiogram demonstrated preserved left ventricular systolic function.. (2) Presence of stent in coronary artery: PLAN: She does have a previous stent and presents with chest discomfort. Cardiac catheterization demonstrated evidence of in-stent stenosis in the diagonal vessel and mid LAD stenosis for which she underwent PCI and stenting of the LAD and balloon angioplasty to the diagonal vessel. She appears to doing well this morning. The plan will be to switch her to clopidogrel and aspirin and after a month to 6 weeks discontinue the aspirin and continue clopidogrel and Eliquis. She will continue with other risk factor modification. She can be discharged for outpatient follow-up. (3) Essential hypertension: PLAN: Her blood pressure appears to be under good control at this particular time and I would not recommend that we make any changes.
[2023-06-05 07:26] LABS: Absolute Lymphocyte Count 0.73 X10^3/uL (0.83-4.51); Basophil# 0.02 X10^3/uL; Basophil% 0.3 % (0-1); Eosinophil# 0.28 X10^3/uL; Eosinophils% 4.1 % (0-5); Hematocrit 36.5 % (37-47); Hemoglobin 11.5 g/dL (12.0-15.0); Lymphocyte # 0.73 X10^3/ul (0.83-4.51); Lymphocyte % 10.6 % (19-41); Mean Corp Hgb Conc 31.5 g/dL (32-36); Mean Corpuscular Hgb 30.8 pg (27.0-32.0); Mean Corpuscular Volume 97.9 fL (81-99); Monocyte# 0.84 X10^3/uL; Monocyte% 12.2 % (0-10); NRBC Flagged by Analyzer 0 % (0-5); Neutrophil # 4.95 X10^3/uL (2.7-7.7); Neutrophil % 72.2 % (47-70); Platelet Count 180 K/mm3 (150-450); RBC Distribution Width CV 14.2 % (11.6-14.6); RBC Distribution Width SD 50.3 fl (35.1-43.9); Red Blood Count 3.73 M/mm3 (4.2-5.4); White Blood Count 6.9 K/mm3 (4.4-11.0)
[2023-06-05 07:55] LABS: ALB/GLOB Ratio 0.6 RATIO (0.9-2.4); AST(SGOT) 19 U/L (15-37); Alanine Aminotransfer ALT/SGPT 21 U/L (13-56); Albumin, Serum 2.5 g/dL (3.2-5.0); Alkaline Phosphatase 79 U/L (45-117); Anion Gap 4 (5-15); BUN 17 mg/dL (7-18); BUN/Creat Ratio 15.2 RATIO (10-20); Calcium,Total 8.7 mg/dL (8.5-10.1); Chloride 106 mmol/L (98-107); Creatinine, Serum 1.12 mg/dL (0.55-1.02); EST Glomerular Filtration Rate 51 mL/min (>60); Est Glom Filt Rate - Afr Amer 62 mL/min (>60); Estimated Creatinine Clearance 36.28 ml/min; Glucose 168 mg/dL (74-106); Potassium 3.6 mmol/L (3.5-5.1); Protein, Total 6.5 g/dL (6.4-8.2); Sodium Level 142 mmol/L (136-145)
[2023-06-05] MEDS: busPIRone 5 MG Tablet 10 MG PO ×2 (08:08→14:08)
[2023-06-05] MEDS: Insulin Lispro 100 UNIT/ML INSULN.PEN SC ×2 (08:09→11:18)
[2023-06-05] MEDS: DULoxetine Hcl 60 MG Capsule PO (08:09)
[2023-06-05] MEDS: Metoprolol Tartrate 100 MG Tablet PO (08:09)
[2023-06-05] MEDS: amLODIPine 5 MG Tablet PO (08:09)
[2023-06-05] MEDS: Pantoprazole Sodium 40 MG Tablet PO (08:09)
[2023-06-05] MEDS: Insulin Glargine-YFGN 100 UNIT/ML Pen 10 UNIT SC (08:09)
[2023-06-05] MEDS: Insulin Lispro 100 UNIT/ML INSULN.PEN 10 UNIT SC ×2 (08:10→11:18)
[2023-06-05] MEDS: APIXABAN 5 MG TABLET PO (09:47)
[2023-06-05] MEDS: Clopidogrel Bisulfate 75 MG Tablet PO (09:47)
--- NOTE | 2023-06-05 10:39 | PCM.DC ---
Discharge Instructions Diet Discharge Diet: Low fat / Low cholesterol and Carb Control Diet Activity Discharge Activity: Return to Normal Activity Dressing / Incision Call your doctor if you observe: Fever of 101 or Higher, Shortness of breath, Dizziness, Fainting spells, Swelling in the ankles, Chest pain and Increased palpitations (irregular heartbeat) Follow Up Care Test Results: Test results from this visit will be discussed in further detail at your follow-up appointment, if applicable. Discharge Plan Admission Admit Date/Time: 06/03/23 15:05 Attending Provider: Roger Yang Primary Care Provider: Bhupendra Oliveira Consulting Providers: Bart Blas; Yared Fernández Discharge Orders/Prescriptions Prescriptions: New clopidogrel 75 mg Tablet 75 mg PO DAILY 30 Days Qty: 30 0RF Eliquis 5 mg Tablet 5 mg PO BID 30 Days Qty: 60 0RF Continued potassium chloride 10 mEq tablet extended release 10 meq PO DAILY Hold Instructions: until lasix restarted allopurinol 100 mg tablet 100 mg PO DAILY buspirone 10 mg tablet 10 mg PO BID Patient Comments: PER PHARMACY PT TAKES 1 TAB (10 MG) IN THE MORNING AND AFTERNOON AND TAKES 1.5 TAB (15 MG) IN THE EVENING Rx Instructions: PER PHARMACY PT TAKES 1 TAB (10 MG) IN THE MORNING AND AFTERNOON AND TAKES 1.5 TAB (15 MG) IN THE EVENING Saline Mist 0.65 % aerosol,spray 2 spray intranasal TID PRN atorvastatin 40 MG tablet 40 mg PO QHS Patient Comments: cholesterol levothyroxine 100 MCG tablet 100 mcg PO DAILY Patient Comments: thyroid duloxetine 60 mg capsule,delayed release(DR/EC) 60 mg PO DAILY Patient Comments: mental health ascorbic acid (vitamin C) 500 MG tablet 500 mg PO DAILY@1700 Patient Comments: Supplement aspirin 81 MG tablet 81 mg PO DAILY@1700 Patient Comments: STOP 5 DAYS PRIOR TO OR fexofenadine 180 mg tablet 180 mg PO DAILY omeprazole 40 MG capsule,delayed release(DR/EC) 40 mg PO DAILY furosemide 20 MG tablet 20 mg PO BID Hold Instructions: hold until BP will allow reinitiation cholecalciferol (vitamin D3) 50 MCG capsule 2,000 unit PO DAILY insulin glargine [Lantus Solostar U-100 Insulin] 100 unit/mL (3 mL) insulin pen 56 unit SC BID insulin lispro 100 unit/mL insulin pen 14 unit SC BREAKFAST insulin lispro 100 unit/mL insulin pen 14 unit SC LUNCH insulin lispro 100 unit/mL insulin pen 24 unit SC DINNER ferrous sulfate 325 mg (65 mg iron) Tablet 325 mg PO DAILY amlodipine 5 mg tablet 5 mg PO DAILY isosorbide mononitrate 120 mg tablet extended release 24 hr 120 mg PO DAILY albuterol sulfate 90 mcg/actuation HFA aerosol inhaler 2 puff INHALATION PRN PRN (Reason: COPD) alendronate 70 mg tablet 70 mg PO TU buspirone 10 mg tablet 15 mg PO QHS Patient Comments: PER PHARMACY PT TAKES 1 TAB (10 MG) IN THE MORNING AND AFTERNOON AND TAKES 1.5 TAB (15 MG) IN THE EVENING Rx Instructions: PER PHARMACY PT TAKES 1 TAB (10 MG) IN THE MORNING AND AFTERNOON AND TAKES 1.5 TAB (15 MG) IN THE EVENING nystatin [[facility]] 100,000 unit/gram powder 1 applic TOPICAL TID PRN triamcinolone acetonide 0.1 % cream 1 applic TOPICAL DAILY PRN nitroglycerin 0.4 mg tablet, sublingual 0.4 mg sublingual Q5-15M PRN (Reason: chest pain) Qty: 25 3RF metoprolol tartrate 100 mg tablet 100 mg PO BID Qty: 60 11RF Discontinued apixaban 2.5 mg tablet 2.5 mg PO BID Patient Comments: .Blood thinner- LAST DOSE 3-4 DAYS PRIOR, PT HAS WRITTEN ON PAPER Referrals / Follow Up: Bhupendra Oliveira MD [Primary Care Provider] - Within 1 Week Bart Blas MD [Med Staff - Active Staff] - Within 1 Month Disposition Disposition (needs filled in before D/C Order can be placed): Home, Self Care
--- NOTE | 2023-06-05 11:52 | CASEMGMT ---
TOM ROCHA in to discuss discharge needs with patient. Patient states she is active with HHC. Patient states she has portable oxygen to go home with. TOM ROCHA called and verified HHC with [facility]. Patient is active with PT, will add halfway. Patient was able to maintain on home oxygen of 2lpm. Patient denies further needs or concerns at this time. Discharge planning consultant to [facility].
[2023-06-05 12:00] LABS: Bedside Glucose 217 mg/dL (74-106)
--- NOTE | 2023-06-05 14:09 | CASEMGMT ---
Discharge Planning Resumption HH referral sent to [facility] via [facility]. Irene Mcghee, Discharge Planning Asst.
--- NOTE | 2023-06-05 14:24 | DS.PCM_ITS ---
Providers Date of Admission: 06/03/23 Primary Care Physician: Dr. Bhupendra Oliveira MD Consultations 06/03/23 15:16 Consult: Cardiology Routine Consulting Provider: Bart Blas Reason for Consult: chest pain EMERGENT Consult: No MD Notified: Yes Date Notified: 06/03/23 Time Notified: 15:10 Method of Notification: Verbal Reason For Visit: CHEST PAIN, ATRIAL FIBRILLATION Diagnosis Discharge Diagnosis (1) Atrial fibrillation: Status: Acute Code(s): I48.91 - Unspecified atrial fibrillation Qualifiers: Atrial fibrillation type: persistent (not longstanding) Qualified Code(s): I48.19 - Other persistent atrial fibrillation (2) Presence of stent in coronary artery: Status: Acute Code(s): Z95.5 - Presence of coronary angioplasty implant and graft (3) Essential hypertension: Status: Chronic Code(s): I10 - Essential (primary) hypertension Plan 1. Chest pain with CAD and previous stent/HTN/HLD/A-fib ? We will plan for cardiac cath today, will continue to hold her Eliquis ? Appreciate cardiology's assistance ? We will continue with blood pressure medications and make adjustments as rosie gallardo 2. Chronic hypoxic respiratory failure due to COPD ? Continue with her home oxygen as well as her home medications 3. DM2 ? Continue with sliding scale insulin and Lantus, Accu-Chek ACHS ? We will monitor and make adjustments as necessary 4. Hypothyroidism ? Stable ? Continue with Synthroid 5. Anxiety/depression ? Stable ? Continue with her home medications 6. GERD ? Stable ? Continue with PPI DVT: SCD Medications at Discharge Home Medications atorvastatin 40 mg tablet 40 mg PO QHS CHOLESTEROL LOWERING 02/03/18 levothyroxine 100 mcg tablet 100 mcg PO DAILY THYROID 02/03/18 ascorbic acid (vitamin C) 500 mg tablet 500 mg PO DAILY@1700 supplement 05/17/18 aspirin 81 mg tablet,delayed release 81 mg PO DAILY@1700 Heart 09/02/18 potassium chloride 10 mEq tablet,extended release 10 meq PO DAILY supplement 06/08/19 allopurinol 100 mg tablet 100 mg PO DAILY gout 08/11/19 furosemide 20 mg tablet 20 mg PO BID FLUID 10/25/20 omeprazole 40 mg capsule,delayed release 40 mg PO DAILY GERD 10/25/20 cholecalciferol (vitamin D3) 50 mcg (2,000 unit) capsule 2,000 unit PO DAILY SUPPLEMENT 12/13/20 buspirone 10 mg tablet 10 mg PO BID depression 06/12/22 duloxetine 60 mg capsule,delayed release 60 mg PO DAILY MENTAL HEALTH 06/12/22 fexofenadine 180 mg tablet 180 mg PO DAILY ALLERGIES 06/12/22 insulin glargine 100 unit/mL (3 mL) subcutaneous pen (Lantus Solostar U-100 Insulin) 56 unit subcut BID DM 06/12/22 insulin lispro 100 unit/mL subcutaneous pen 14 unit subcut BREAKFAST DIABETES 06/12/22 insulin lispro 100 unit/mL subcutaneous pen 14 unit subcut LUNCH DIABETES 06/12/22 insulin lispro 100 unit/mL subcutaneous pen 24 unit subcut DINNER DIABETES 06/12/22 sodium chloride 0.65 % nasal spray aerosol (Saline Mist) 2 spray intranasal TID PRN ALLERGIES 06/12/22 nitroglycerin 0.4 mg sublingual tablet 0.4 mg sublingual Q5-15M PRN chest pain #25 tabs 10/21/22 albuterol sulfate 90 mcg/actuation aerosol inhaler 2 puff inhalation PRN PRN COPD 12/12/22 amlodipine 5 mg tablet 5 mg PO DAILY BP 12/12/22 ferrous sulfate 325 mg (65 mg iron) tablet 325 mg PO DAILY SUPPLEMENT 12/12/22 isosorbide mononitrate 120 mg tablet,extended release 24 hr 120 mg PO DAILY HEART 12/12/22 metoprolol tartrate 100 mg tablet 100 mg PO BID Heart Rate #60 tabs 12/27/22 alendronate 70 mg tablet 70 mg PO TU BONES 06/03/23 buspirone 10 mg tablet 15 mg PO QHS 06/03/23 nystatin 100,000 unit/gram topical powder ([facility]) 1 applic topical TID PRN SKIN 06/03/23 triamcinolone acetonide 0.1 % topical cream 1 applic topical DAILY PRN SKIN 06/03/23 apixaban 5 mg tablet (Eliquis) 5 mg PO BID 30 days #60 tabs 06/05/23 clopidogrel 75 mg tablet 75 mg PO DAILY 30 days #30 tabs 06/05/23 Hospital Course Operations None Procedures Cardiac catheterization Summary of Care Provided Minutes Spent on Discharge: 36 Hospital Course: Per HPI: RUI FARZAD, is a 68 F who presents to the emergency room at [facility] with complaints of chest pain which started this morning, she has a history of coronary artery disease and tells this examiner that she had a stent placed in 2003 at [facility] in [place]. She follows with Dr. Ramsey's office on an ongoing basis. Patient has a history of chronic atrial fibrillation and is currently taking Eliquis presently, she states that she had chest pain which started this morning, it was across her entire chest and into her right arm, she described the chest discomfort as dull and sharp at the same time, it also radiated into her back and according to the emergency room physician, there was some radiation into her lower abdomen. At the time of my examination in the emergency room, patient stated that her chest pain was resolved. Patient had a stress test done in September of this year that was negative for reversible ischemia. Patient is on chronic oxygen due to chronic obstructive pulmonary disease. Work-up in the emergency room included an EKG which showed her to be in atrial fibrillation with a well-controlled rate, no evidence of ischemic changes were noted, chest x-ray showed cardiomegaly, there is no evidence of congestive heart failure. Patient's cardiac enzymes were unremarkable. Patient CBC was unremarkable, patient's chemistry profile showed a slightly elevated creatinine of 1.15, potassium was low at 3.[address] of her abdomen pelvis performed which showed a mild degree of increased markings at the lung bases suggestive of lingula atelectasis or scarring, no acute abnormality was noted. I discussed the case with Dr. Blas today, it would seem prudent to proceed with cardiac catheterization since the patient had a negative stress test within the past year. Patient will be placed in observation status on PCU, she will be mo nitored and repeat cardiac enzymes will be obtained, potassium replacement was ordered, labs will be monitored. Hospital Course: 1. Chest pain with a history of CAD and previous stent/HTN/HLD/A-fib?68-year old female presented to the hospital with chest pain. She underwent a heart cath on 06/04/2023 which demonstrated in-stent stenosis in the diagonal vessel and mid LAD stenosis and she received a stent to the mid LAD with a balloon angioplasty to the diagonal vessel. She is feeling much better today, and cardiology felt that she would continue with her Eliquis at 5 mg p.o. twice daily as well as Plavix and aspirin for 4 to 6 weeks and then discontinue the aspirin and continue with just Plavix and Eliquis. Recommend that she follow-up with cardiology in that 1 month timeframe to manage his medication changes. I discussed with her the plan for discharge today she expressed understanding of the risk benefits going home and would like to go home today. Her other medications were kept this same other than the increase in Eliquis from 2.5 mg p.o. twice daily to 5 mg p.o. twice daily. I do recommend that she follow-up with her PCP in 3 to 5 days for outpatient management and follow-up. 2. Chronic hypoxic respiratory failure from COPD, type 2 diabetes, hypothyroidism, anxiety, depression, GERD are all chronic medical conditions which complicate her care. Her home medications were continued where appropriate. Physical Exam Narrative General: Alert, Oriented x3, Cooperative, No apparent distress HEENT: Atraumatic, PERRLA, EOMI, Normocephalic Oral: Moist Mucosa Neck: Supple, No JVD Lungs: Diminished, Normal air movement, No rhonchi, No wheeze, No rales Cardiovascular: Regular rate, Regular Rhythm, Normal S1, Normal S2, No murmurs Abdomen: Soft, Non Tender, Non-Distended, No Hepato-splenomegaly Extremities: No edema, Capillary Refill Less than 3 Seconds Skin: No rashes, No breakdown Musculoskeletal: No Tenderness to Palpation of Joints or Extremities Neurological: Cranial nerves II-XII grossly intact, Motor Exam 5/5 strength throughout, Sensory exam intact to light touch and pain Psych/Mental Status: Normal Affect, Appropriate Weight / BMI Weight Weight: 203 lb 4.259 oz Body Mass Index (BMI) 38.4 ABG / Lab / Microbiology Data 06/05/23 06:04 06/05/23 06:04 Laboratory: Laboratory Results - last 24 hr 06/04/23 17:08: POC Glucose 98 06/04/23 22:08: POC Glucose 256 H 06/05/23 06:04: WBC 6.9, RBC 3.73 L, Hgb 11.5 L, Hct 36.5 L, MCV 97.9, MCH 30.8, MCHC 31.5 L, RDW Std Deviation 50.3 H, RDW Coeff of Aubrey 14.2, Plt Count 180, MPV 10.0, Immature Gran % (Auto) 0.600, Neut % (Auto) 72.2 H, Lymph % (Auto) 10.6 L, [place] % (Auto) 12.2 H, Eos % (Auto) 4.1, Baso % (Auto) 0.3, Absolute Neuts (auto) 5.0, Absolute Lymphs (auto) 0.73 L, Nucleated RBC % 0, Sodium 142, Potassium 3.6, Chloride 106, Carbon Dioxide 32.0, Anion Gap 4 L, BUN 17, Creatinine 1.12 H , Estim Creat Clear Calc 36.28, Est GFR (MDRD) Af Amer 62, Est GFR (MDRD) Non-Af 51 L, BUN/Creatinine Ratio 15.2, Glucose 168 H, Calcium 8.7, Total Bilirubin 1.10 H, AST 19, ALT 21, Alkaline Phosphatase 79, Total Protein 6.5, Albumin 2.5 L, Globulin 4.0, Albumin/Globulin Ratio 0.6 L 06/05/23 06:52: POC Glucose 158 H 06/05/23 11:17: POC Glucose 217 H D/C Instructions Discharge Diet: Low fat / Low cholesterol and Carb Control Diet Call your doctor if you observe: Fever of 101 or Higher, Shortness of breath, Dizziness, Fainting spells, Swelling in the ankles, Chest pain and Increased palpitations (irregular heartbeat) Meaningful Use Info Meaningful Use Diagnoses (Choose all that apply): None applicable Discharge Plan Admission Admit Date/Time: 06/03/23 15:05 Attending Provider: Roger Yang Primary Care Provider: Bhupendra Oliveira Consulting Providers: Bart Blas; Yared Fernández Discharge Orders/Prescriptions Prescriptions: New clopidogrel 75 mg Tablet 75 mg PO DAILY 30 Days Qty: 30 0RF Eliquis 5 mg Tablet 5 mg PO BID 30 Days Qty: 60 0RF Continued potassium chloride 10 mEq tablet extended release 10 meq PO DAILY Hold Instructions: until lasix restarted allopurinol 100 mg tablet 100 mg PO DAILY buspirone 10 mg tablet 10 mg PO BID Patient Comments: PER PHARMACY PT TAKES 1 TAB (10 MG) IN THE MORNING AND AFTERNOON AND TAKES 1.5 TAB (15 MG) IN THE EVENING Rx Instructions: PER PHARMACY PT TAKES 1 TAB (10 MG) IN THE MORNING AND AFTERNOON AND TAKES 1.5 TAB (15 MG) IN THE EVENING Saline Mist 0.65 % aerosol,spray 2 spray intranasal TID PRN atorvastatin 40 MG tablet 40 mg PO QHS Patient Comments: cholesterol levothyroxine 100 MCG tablet 100 mcg PO DAILY Patient Comments: thyroid duloxetine 60 mg capsule,delayed release(DR/EC) 60 mg PO DAILY Patient Comments: mental health ascorbic acid (vitamin C) 500 MG tablet 500 mg PO DAILY@1700 Patient Comments: Supplement aspirin 81 MG tablet 81 mg PO DAILY@1700 Patient Comments: STOP 5 DAYS PRIOR TO OR fexofenadine 180 mg tablet 180 mg PO DAILY omeprazole 40 MG capsule,delayed release(DR/EC) 40 mg PO DAILY furosemide 20 MG tablet 20 mg PO BID Hold Instructions: hold until BP will allow reinitiation cholecalciferol (vitamin D3) 50 MCG capsule 2,000 unit PO DAILY insulin glargine [Lantus Solostar U-100 Insulin] 100 unit/mL (3 mL) insulin pen 56 unit SC BID insulin lispro 100 unit/mL insulin pen 14 unit SC BREAKFAST insulin lispro 100 unit/mL insulin pen 14 unit SC LUNCH insulin lispro 100 unit/mL insulin pen 24 unit SC DINNER ferrous sulfate 325 mg (65 mg iron) Tablet 325 mg PO DAILY amlodipine 5 mg tablet 5 mg PO DAILY isosorbide mononitrate 120 mg tablet extended release 24 hr 120 mg PO DAILY albuterol sulfate 90 mcg/actuation HFA aerosol inhaler 2 puff INHALATION PRN PRN (Reason: COPD) alendronate 70 mg tablet 70 mg PO TU buspirone 10 mg tablet 15 mg PO QHS Patient Comments: PER PHARMACY PT TAKES 1 TAB (10 MG) IN THE MORNING AND AFTERNOON AND TAKES 1.5 TAB (15 MG) IN THE EVENING Rx Instructions: PER PHARMACY PT TAKES 1 TAB (10 MG) IN THE MORNING AND AFTERNOON AND TAKES 1.5 TAB (15 MG) IN THE EVENING nystatin [[facility]] 100,000 unit/gram powder 1 applic TOPICAL TID PRN triamcinolone acetonide 0.1 % cream 1 applic TOPICAL DAILY PRN nitroglycerin 0.4 mg tablet, sublingual 0.4 mg sublingual Q5-15M PRN (Reason: chest pain) Qty: 25 3RF metoprolol tartrate 100 mg tablet 100 mg PO BID Qty: 60 11RF Discontinued apixaban 2.5 mg tablet 2.5 mg PO BID Patient Comments: .Blood thinner- LAST DOSE 3-4 DAYS PRIOR, PT HAS WRITTEN ON PAPER Referrals / Follow Up: Bhupendra Oliveira MD [Primary Care Provider] - Within 1 Week Bart Blas MD [Med Staff - Active Staff] - Within 1 Month Disposition Disposition (needs filled in before D/C Order can be placed): Home, Self Care Charges/Coding Visit Charges Inpatient E&M: 39899 Disch Hosp >30min
[2023-06-05] MEDS: Acetaminophen 500 MG Tablet 1000 MG PO (14:55)
[2023-06-05] MEDS: Aspirin E.C. 81 MG Tablet PO (16:17)
[2023-06-05 16:39] LABS: Bedside Glucose 194 mg/dL (74-106)
== END 2023-06-05 17:53 | disposition home health service (06) ==
LOC: ED 13:28 → PCU 13:46
PROVIDERS: Specialist; Admitting Provider Internal Medicine; Emergency Provider Emergency Medicine; PCP Family Medicine; Visit Provider Family Medicine
DX: T82.855A Stenosis of coronary artery stent, initial encounter (principal); J44.9 Chronic obstructive pulmonary disease, unspecified; I50.32 Chronic diastolic (congestive) heart failure; I13.0 Hypertensive heart and chronic kidney disease with heart failure and stage 1 through stage 4 chronic kidney disease, or unspecified chronic kidney disease; E11.43 Type 2 diabetes mellitus with diabetic autonomic (poly)neuropathy; E11.22 Type 2 diabetes mellitus with diabetic chronic kidney disease; J96.11 Chronic respiratory failure with hypoxia; I48.19 Other persistent atrial fibrillation; Z79.4 Long term (current) use of insulin; N18.32 Chronic kidney disease, stage 3b; F41.9 Anxiety disorder, unspecified; Z87.891 Personal history of nicotine dependence; I25.10 Atherosclerotic heart disease of native coronary artery without angina pectoris; Z79.82 Long term (current) use of aspirin; E03.9 Hypothyroidism, unspecified; E78.2 Mixed hyperlipidemia; Z79.01 Long term (current) use of anticoagulants; Z95.5 Presence of coronary angioplasty implant and graft; Z86.16 Personal history of COVID-19; Z79.899 Other long term (current) drug therapy; Z79.890 Hormone replacement therapy; K21.9 Gastro-esophageal reflux disease without esophagitis; I25.2 Old myocardial infarction; Z86.718 Personal history of other venous thrombosis and embolism; Z86.711 Personal history of pulmonary embolism; F32.A Depression, unspecified; E87.6 Hypokalemia; Y71.2 Prosthetic and other implants, materials and accessory cardiovascular devices associated with adverse incidents
CPT/HCPCS: 36415; 71045; 71260; 74177; 80048; 80053; 80076; 82962; 83690; 84484; 85025; 92920; 92928; 93005; 93306; 93454; 93458; 94668; 96361; 96374; 96375; 96376; 99152; 99153; 99221; 99252; 99284; J7030; Q9957; Q9967; A4216; C1725; C1769; C1874; C1887; C1894; C8929; C9600; G0378; G0463; J1327; J2405

== ENCOUNTER 2023-06-10 14:06 | Emergency (ER) | payer MEDICARE, MEDICAID, SELFPAY ==
[2023-06-10 14:07] VITALS: BP 169/88; PULSE 91; RESP 22; TEMP 36.1; O2SAT 100
--- NOTE | 2023-06-10 14:08 | EKG12_ITS ---
Test Reason : CP Blood Pressure : / mmHG Vent. Rate : 082 BPM Atrial Rate : 000 BPM P-R Int : 000 ms QRS Dur : 074 ms QT Int : 374 ms P-R-T Axes : 000 -16 095 degrees QTc Int : 436 ms Atrial fibrillation Nonspecific ST and T wave abnormality Abnormal ECG Confirmed by ANGELES ABRAHAM, ALANA ([id number]), industrial editor YAN SUH ([id number]) on 06/16/2023 2:15:24 PM Referred By: Confirmed By:BERNARD REYNOSO MD
[2023-06-10 14:18] VITALS: BMI 37.7
--- NOTE | 2023-06-10 14:26 | ED.VIS.CHEST ---
HPI History of Present Illness Chief Complaint: Chest Pain Narrative Narrative: 68-year-old female past medical history of coronary artery disease, atrial fibrillation, on Eliquis presents with her sister because of chest pain that she started having about an hour ago. Of note, she states that she had a stent placed in her left artery on of last week. She supposed to follow-up with Dr. aBrt Blas, patient but she cannot remember who performed her cardiac stent placement. About an hour prior to arrival she was sitting at home, and started having the same chest pain that she had prior to her stenting. She was nauseated but did not vomit, she denies any diaphoresis or shortness of breath. She did not take her nitroglycerin that she has at home. She denies any exacerbating or alleviating factors to her chest pain. [facility] Medical History Anemia Anxiety Anxiety Arthritis Atherosclerotic heart disease of [place] coronary artery without angina pectoris Back pain Broken rib Cancer Cardiology follow-up encounter Chronic kidney disease (CKD) stage G3b/A1, moderately decreased glomerular filtration rate (GFR) between 30-44 mL/min/1.73 square meter and albuminuria creatinine ratio less than 30 mg/g Chronic respiratory insufficiency Closed intertrochanteric fracture of left femur COPD (chronic obstructive pulmonary disease) DDD (degenerative disc disease) Diabetes Diabetes mellitus type 2 in obese Diabetic neuropathy Difficulty swallowing DVT (deep venous thrombosis) Essential hypertension Excessive bleeding Fall at home Former smoker Gastric reflux Gastroparesis Gastroparesis GERD (gastroesophageal reflux disease) High cholesterol History of cervical cancer History of CHF (congestive heart failure) History of diverticulitis History of DVT (deep vein thrombosis) History of edema History of heart attack History of Holter monitoring History of IBS History of renal disease History of stress test Hypothyroidism Injury of back Insulin dependent diabetes mellitus Lung nodule Migraine headache Mixed hyperlipidemia On home oxygen therapy PARESH (obstructive sleep apnea) Paroxysmal A-fib Paroxysmal atrial fibrillation Post-menopausal Presence of stent in coronary artery (~12/07/03) Pulmonary embolism Pulmonary embolism Pulmonary hypertension RLS (restless legs syndrome) Sleep apnea Thyroid disease Tinnitus Uses wheelchair Walker as ambulation aid Wears dentures Wears glasses Wears hearing aid Home Medications atorvastatin 40 mg tablet 40 mg PO QHS CHOLESTEROL LOWERING 02/03/18 [History Last Taken 06/03/23] levothyroxine 100 mcg tablet 100 mcg PO DAILY THYROID 02/03/18 [History Last Taken 06/03/23] ascorbic acid (vitamin C) 500 mg tablet 500 mg PO DAILY@1700 supplement 05/17/18 [History Last Taken 06/03/23] aspirin 81 mg tablet,delayed release 81 mg PO DAILY@1700 Heart 09/02/18 [History Last Taken 06/03/23] potassium chloride 10 mEq tablet,extended release 10 meq PO DAILY supplement 06/08/19 [History Last Taken 06/03/23] allopurinol 100 mg tablet 100 mg PO DAILY gout 08/11/19 [History Last Taken 06/03/23] furosemide 20 mg tablet 20 mg PO BID FLUID 10/25/20 [History Last Taken 06/03/23] omeprazole 40 mg capsule,delayed release 40 mg PO DAILY GERD 10/25/20 [History Last Taken 06/03/23] cholecalciferol (vitamin D3) 50 mcg (2,000 unit) capsule 2,000 unit PO DAILY SUPPLEMENT 12/13/20 [History Last Taken 06/02/23] buspirone 10 mg tablet 10 mg PO BID depression 06/12/22 [History Last Taken 06/03/23] duloxetine 60 mg capsule,delayed release 60 mg PO DAILY MENTAL HEALTH 06/12/22 [History Last Taken 06/03/23] fexofenadine 180 mg tablet 180 mg PO DAILY ALLERGIES 06/12/22 [History Last Taken 06/03/23] insulin glargine 100 unit/mL (3 mL) subcutaneous pen (Lantus Solostar U-100 Insulin) 56 unit subcut BID DM 06/12/22 [History Last Taken 06/03/23] insulin lispro 100 unit/mL subcutaneous pen 14 unit subcut BREAKFAST DIABETES 06/12/22 [History Last Taken 06/03/23] insulin lispro 100 unit/mL subcutaneous pen 14 unit subcut LUNCH DIABETES 06/12/22 [History Last Taken 06/02/23] insulin lispro 100 unit/mL subcutaneous pen 24 unit subcut DINNER DIABETES 06/12/22 [History Last Taken 06/02/23] sodium chloride 0.65 % nasal spray aerosol (Saline Mist) 2 spray intranasal TID PRN ALLERGIES 06/12/22 [History Last Taken 06/03/23] nitroglycerin 0.4 mg sublingual tablet 0.4 mg sublingual Q5-15M PRN chest pain #25 tabs 10/21/22 [Rx Last Taken 12/17/22] albuterol sulfate 90 mcg/actuation aerosol inhaler 2 puff inhalation PRN PRN COPD 12/12/22 [History Last Taken 12/17/22] amlodipine 5 mg tablet 5 mg PO DAILY BP 12/12/22 [History Last Taken 06/03/23] ferrous sulfate 325 mg (65 mg iron) tablet 325 mg PO DAILY SUPPLEMENT 12/12/22 [History Last Taken 06/03/23] isosorbide mononitrate 120 mg tablet,extended release 24 hr 120 mg PO DAILY HEART 12/12/22 [History Last Taken 06/03/23] metoprolol tartrate 100 mg tablet 100 mg PO BID Heart Rate #60 tabs 12/27/22 [Rx Last Taken 06/03/23] alendronate 70 mg tablet 70 mg PO TU BONES 06/03/23 [History Last Taken 06/03/23] buspirone 10 mg tablet 15 mg PO QHS 06/03/23 [History Last Taken 06/02/23] nystatin 100,000 unit/gram topical powder (Nyamy) 1 applic topical TID PRN SKIN 06/03/23 [History Last Taken Unknown] triamcinolone acetonide 0.1 % topical cream 1 applic topical DAILY PRN SKIN 06/03/23 [History Last Taken 06/01/23] apixaban 5 mg tablet (Eliquis) 5 mg PO BID 30 days #60 tabs 06/05/23 [Rx Last Taken Unknown] clopidogrel 75 mg tablet 75 mg PO DAILY 30 days #30 tabs 06/05/23 [Rx Last Taken Unknown] Allergy/AdvReac Type Severity Reaction Status Date / Time metoclopramide [From Reglan] Allergy Intermediate Itching Verified 06/10/23 14:07 ciprofloxacin [From Cipro] Allergy Hives Verified 06/10/23 14:07 latex Allergy matos me Verified 06/10/23 14:07 niacin Allergy Hives Verified 06/10/23 14:07 [From Niaspan Extended-Release] ranolazine [From Ranexa] Allergy Itching Verified 06/10/23 14:07 adhesive tape AdvReac Other Verified 06/10/23 14:07 orphenadrine citrate AdvReac groggy Verified 06/10/23 14:07 [From Norgesic] Family History Mother CAD (coronary artery disease) Father CAD (coronary artery disease) Brother CAD (coronary artery disease) Asthma Sister Hypertension Sister Diabetes Sister Heart disease Surgical History H/O heart artery stent History of cardiac catheterization History of cholecystectomy History of coronary artery stent placement History of hernia repair History of knee surgery History of left heart catheterization (LHC) (~09/28/19) History of nasal surgery History of surgery on wrist History of total abdominal hysterectomy History of tubal ligation Hx of surgical procedure Presence of coronary angioplasty implant and graft (~12/07/03) Social History Smoking Status: Former smoker alcohol intake: never substance use type: does not use caffeine: Yes Type: coffee Number of servings: 1 ROS ROS ED ROS Narrative Constitutional: No fever, no chills. HEENT: No sore throat. No neck pain. No loss of vision. No rhinorrhea. Cardiovascular: Positive midsternal chest pain. No palpitations. No pedal edema. Respiratory: No cough, no shortness of breath. Abdominal: No abdominal pain. Positive nausea. No vomiting. Genitourinary: No dysuria. No hematuria. Musculoskeletal: No myalgias. No arthralgias. Neurologic: No headaches. No dizziness. No lightheadedness. Skin: No rash. No change in color. Psychiatric: No depression. No anxiety. EXAM Physical Exam Narrative Exam Narrative: Afebrile. Vital signs noted. HEENT: Normocephalic. Atraumatic. PERRL, EOMI. Neck soft and supple. No point tenderness or step off. Cardiovascular: Regular rate irregular rhythm, no murmurs, rubs, or gallops appreciated. Respiratory: No tachypnea. Lungs clear to auscultation bilaterally. Gastrointestinal: Abdomen soft, nontender, with normoactive bowel sounds. No rebound or guarding. Neurological: Awake. Alert. Nonfocal, nonlateralizing. Skin: No rash. Normal color. No pallor. Musculoskeletal: No pedal edema. Full range of motion extremities. Const Vital Signs: 06/10/23 14:07 06/10/23 14:17 06/10/23 14:32 Temperature 96.9 F L Temperature Source Temporal Pulse Rate 91 78 Respiratory Rate 22 H Respiratory Effort Short of Breath Blood Pressure 169/88 H 93/79 Blood Pressure Mean 115 Pulse Ox 100 Oxygen Delivery Method Room Air Oxygen Flow Rate (L/min) 06/10/23 15:01 06/10/23 15:04 06/10/23 15:23 Temperature Temperature Source Pulse Rate 89 84 96 Respiratory Rate 18 28 H Respiratory Effort Blood Pressure 120/61 120/61 120/61 Blood Pressure Mean 80 80 Pulse Ox 98 100 Oxygen Delivery Method Room Air Nasal Cannula Oxygen Flow Rate (L/min) 3 06/10/23 15:23 Temperature Temperature Source Pulse Rate 87 Respiratory Rate 20 H Respiratory Effort Blood Pressure 118/64 Blood Pressure Mean 82 Pulse Ox 99 Oxygen Delivery Method Nasal Cannula Oxygen Flow Rate (L/min) 3 MDM MDM MDM Narrative Medical decision making narrative: I did review her cath report. Concern would be for reocclusion versus postperfusion pain. In reading her previous cath report, she did have a stent prior in the diagonal branch with in-stent stenosis. Additionally, she underwent stenting of the LAD during this catheterization on . She was discharged from the hospital the following day. KG was obtained and interpreted by myself independently as atrial fibrillation at 82 bpm without other ectopy or acute ST changes. No STEMI. I will check her troponins today along with a chest x-ray and basic laboratory work. Her blood pressure had been under control and the plan was to switch her from her clipper to gel, and she started Eliquis, with plan to take her off aspirin. I reviewed her laboratory work from today, she has a normal white count of 8.3, hemoglobin 13.2, hematocrit normal at 41.5, platelet count normal at 276. BMP shows slightly elevated BUN of 24 and creatinine of 1.43, glucose appropriately elevated at 105 with a low anion gap of 2. Initial high-sensitivity troponin is 11, repeat at 2 hours is also 11. I discussed the patient with Dr. Kennedy with cardiology who agrees with outpatient discharge. She did receive 2 mg of morphine for her chest pain with symptomatic relief. I feel she be discharged safely home with follow-up and that she does not require observation or admission at this time. She will follow-up with cardiology as scheduled. Return instructions to the emergency department were reviewed. Disposition is discharged home in stable condition. History & Record Review Discussion w/independent historian: Patient and Family Additional record(s) reviewed:: Prior inpatient record, Prior ED visit and Prior labs Lab Data Attestation: I reviewed the patient's lab results. Labs: Laboratory Results - last 24 hr 06/10/23 06/10/23 06/10/23 14:30 14:50 17:09 WBC 8.3 RBC 4.16 L Hgb 13.2 Hct 41.5 MCV 99.8 H MCH 31.7 MCHC 31.8 L RDW Std Deviation 52.0 H RDW Coeff of Aubrey 14.4 Plt Count 276 MPV 11.1 Immature Gran % (Auto) 0.800 Neut % (Auto) 69.7 Lymph % (Auto) 14.5 L Catron % (Auto) 9.7 Eos % (Auto) 4.7 Baso % (Auto) 0.6 Absolute Neuts (auto) 5.8 Absolute Lymphs (auto) 1.20 Nucleated RBC % 0 Sodium Cancelled 140 Potassium Cancelled 3.9 Chloride Cancelled 106 Carbon Dioxide Cancelled 32.0 Anion Gap Cancelled 2 L BUN Cancelled 24 H Creatinine Cancelled 1.43 H Estim Creat Clear Calc Cancelled 28.41 Est GFR (MDRD) Af Amer Cancelled 47 L Est GFR (MDRD) Non-Af Cancelled 39 L BUN/Creatinine Ratio Cancelled 16.8 Glucose Cancelled 105 Calcium Cancelled 8.6 Troponin I High Sens Cancelled 11 11 Radiography Diagnostic Testing: Clinical Impression(s) from Imaging Studies Chest X-Ray 06/10/23 14:40 IMPRESSION: No acute abnormality is seen. Electronically Signed: Bentley Montejo MD at 15:05 EDT , Discharge Plan Triage Chief Complaint: Chest Pain ED Provider: Jim Huddleston Dx/Rx/DC Orders Clinical Impression: History of CAD (coronary artery disease), Chest pain Instructions: ED Chest Pain, Uncertain Cause Prescriptions: No Action potassium chloride 10 mEq tablet extended release 10 meq PO DAILY Hold Instructions: until lasix restarted allopurinol 100 mg tablet 100 mg PO DAILY buspirone 10 mg tablet 10 mg PO BID Patient Comments: PER PHARMACY PT TAKES 1 TAB (10 MG) IN THE MORNING AND AFTERNOON AND TAKES 1.5 TAB (15 MG) IN THE EVENING Rx Instructions: PER PHARMACY PT TAKES 1 TAB (10 MG) IN THE MORNING AND AFTERNOON AND TAKES 1.5 TAB (15 MG) IN THE EVENING Saline Mist 0.65 % aerosol,spray 2 spray intranasal TID PRN atorvastatin 40 MG tablet 40 mg PO QHS Patient Comments: cholesterol levothyroxine 100 MCG tablet 100 mcg PO DAILY Patient Comments: thyroid duloxetine 60 mg capsule,delayed release(DR/EC) 60 mg PO DAILY Patient Comments: mental health ascorbic acid (vitamin C) 500 MG tablet 500 mg PO DAILY@1700 Patient Comments: Supplement aspirin 81 MG tablet 81 mg PO DAILY@1700 Patient Comments: STOP 5 DAYS PRIOR TO OR fexofenadine 180 mg tablet 180 mg PO DAILY omeprazole 40 MG capsule,delayed release(DR/EC) 40 mg PO DAILY furosemide 20 MG tablet 20 mg PO BID Hold Instructions: hold until BP will allow reinitiation cholecalciferol (vitamin D3) 50 MCG capsule 2,000 unit PO DAILY insulin glargine [Lantus Solostar U-100 Insulin] 100 unit/mL (3 mL) insulin pen 56 unit SC BID insulin lispro 100 unit/mL insulin pen 14 unit SC BREAKFAST insulin lispro 100 unit/mL insulin pen 14 unit SC LUNCH insulin lispro 100 unit/mL insulin pen 24 unit SC DINNER ferrous sulfate 325 mg (65 mg iron) Tablet 325 mg PO DAILY amlodipine 5 mg tablet 5 mg PO DAILY isosorbide mononitrate 120 mg tablet extended release 24 hr 120 mg PO DAILY albuterol sulfate 90 mcg/actuation HFA aerosol inhaler 2 puff INHALATION PRN PRN (Reason: COPD) alendronate 70 mg tablet 70 mg PO TU buspirone 10 mg tablet 15 mg PO QHS Patient Comments: PER PHARMACY PT TAKES 1 TAB (10 MG) IN THE MORNING AND AFTERNOON AND TAKES 1.5 TAB (15 MG) IN THE EVENING Rx Instructions: PER PHARMACY PT TAKES 1 TAB (10 MG) IN THE MORNING AND AFTERNOON AND TAKES 1.5 TAB (15 MG) IN THE EVENING nystatin [Nyamyc] 100,000 unit/gram powder 1 applic TOPICAL TID PRN triamcinolone acetonide 0.1 % cream 1 applic TOPICAL DAILY PRN clopidogrel 75 mg Tablet 75 mg PO DAILY 30 Days Qty: 30 0RF Eliquis 5 mg Tablet 5 mg PO BID 30 Days Qty: 60 0RF nitroglycerin 0.4 mg tablet, sublingual 0.4 mg sublingual Q5-15M PRN (Reason: chest pain) Qty: 25 3RF metoprolol tartrate 100 mg tablet 100 mg PO BID Qty: 60 11RF Primary Care Provider: Bhupendra Oliveira Referrals: Bhupendra Oliveira MD [Primary Care Provider] - Bart Blas MD [Med Staff - Active Staff] - Keep Viviana appointment Activity Restrictions/Additional Instructions: Follow-up with Dr. Bart Blas as scheduled. Take your nitroglycerin as needed for chest pain. Additionally keep control of your blood pressure Disposition Disposition: Home, Self Care
[2023-06-10 14:32] VITALS: BP 93/79; PULSE 78
[2023-06-10] MEDS: Nitroglycerin SL (ED/IMG/CATH) 0.4 MG TABLET SL ×2 (14:32→15:23)
[2023-06-10 14:40] LABS: Absolute Neutrophil Count 5.8 X10^3/uL (2.0-7.7); Basophil# 0.05 X10^3/uL; Basophil% 0.6 % (0-1); Eosinophil# 0.39 X10^3/uL; Eosinophils% 4.7 % (0-5); Hematocrit 41.5 % (37-47); Hemoglobin 13.2 g/dL (12.0-15.0); Lymphocyte % 14.5 % (19-41); Mean Corp Hgb Conc 31.8 g/dL (32-36); Mean Corpuscular Hgb 31.7 pg (27.0-32.0); Mean Corpuscular Volume 99.8 fL (81-99); Mean Platelet Vol. 11.1 fl (6.2-12.0); Monocyte% 9.7 % (0-10); NRBC Flagged by Analyzer 0 % (0-5); Neutrophil # 5.77 X10^3/uL (2.7-7.7); Neutrophil % 69.7 % (47-70); Platelet Count 276 K/mm3 (150-450); RBC Distribution Width CV 14.4 % (11.6-14.6); Red Blood Count 4.16 M/mm3 (4.2-5.4); White Blood Count 8.3 K/mm3 (4.4-11.0)
--- NOTE | 2023-06-10 14:40 | RAD_ITS ---
STUDY: X-RAY CHEST REASON FOR EXAM: Female, 68 years old. Chest pain TECHNIQUE: Single AP portable view of the chest. COMPARISON: Comparison is made with prior study June 03, 2023. FINDINGS: EKG electrodes are seen. The lungs are clear and expanded. There is no demonstrated pleural abnormality. There is borderline cardiomegaly. Normal mediastinum and tracie. Normal visualized pulmonary arteries. There is atherosclerotic calcification of the aortic arch with tortuosity. There are diffuse degenerative changes of the visualized thoracic spine. Normal visualized ribs, clavicles, and shoulders. There is no demonstrated abnormality of the visualized soft tissue structures of the upper abdomen. RAD/Chest 1 View (Portable) IMPRESSION: No acute abnormality is seen. Electronically Signed: Bentley Montejo MD at 15:05 EDT ,
[2023-06-10 15:01] VITALS: BP 120/61; PULSE 89; RESP 18; O2SAT 98
[2023-06-10 15:04] VITALS: BP 120/61; PULSE 84; RESP 28; O2SAT 100
[2023-06-10 15:23] VITALS: BP 118/64; BP 120/61; PULSE 87; PULSE 96; RESP 20; O2SAT 99
[2023-06-10 15:32] LABS: Anion Gap 2 (5-15); BUN 24 mg/dL (7-18); BUN/Creat Ratio 16.8 RATIO (10-20); Calcium,Total 8.6 mg/dL (8.5-10.1); Chloride 106 mmol/L (98-107); Creatinine, Serum 1.43 mg/dL (0.55-1.02); EST Glomerular Filtration Rate 39 mL/min (>60); Est Glom Filt Rate - Afr Amer 47 mL/min (>60); Estimated Creatinine Clearance 28.41 ml/min; Glucose 105 mg/dL (74-106); Potassium 3.9 mmol/L (3.5-5.1); Sodium Level 140 mmol/L (136-145); Troponin-I HS (w/2H Reflex) 11 pg/mL (3.0-54.0)
[2023-06-10] MEDS: Morphine 2 MG/ML Syringe IV (16:24)
[2023-06-10 16:59] LABS: Reflex Troponin-HS? (from REC) Y
[2023-06-10 17:47] LABS: Troponin-I HS 11 pg/mL (3.0-54.0)
== END 2023-06-10 18:39 | disposition home or self-care (01) ==
PROVIDERS: Emergency Provider Emergency Medicine; PCP Family Medicine; Visit Provider Emergency Medicine
DX: R07.9 Chest pain, unspecified (principal); J44.9 Chronic obstructive pulmonary disease, unspecified; I13.0 Hypertensive heart and chronic kidney disease with heart failure and stage 1 through stage 4 chronic kidney disease, or unspecified chronic kidney disease; I50.9 Heart failure, unspecified; E11.22 Type 2 diabetes mellitus with diabetic chronic kidney disease; I48.0 Paroxysmal atrial fibrillation; Z79.4 Long term (current) use of insulin; N18.32 Chronic kidney disease, stage 3b; I25.10 Atherosclerotic heart disease of native coronary artery without angina pectoris; E78.00 Pure hypercholesterolemia, unspecified; K21.9 Gastro-esophageal reflux disease without esophagitis; Z99.81 Dependence on supplemental oxygen; Z79.82 Long term (current) use of aspirin; Z79.01 Long term (current) use of anticoagulants; Z79.02 Long term (current) use of antithrombotics/antiplatelets; Z79.890 Hormone replacement therapy; Z79.899 Other long term (current) drug therapy; Z87.891 Personal history of nicotine dependence; Z95.5 Presence of coronary angioplasty implant and graft
CPT/HCPCS: 36415; 71045; 80048; 84484; 85025; 93005; 96374; 99285; A4216

== ENCOUNTER → 2023-07-02 | Outpatient (CLI) | payer MEDICARE, MEDICAID, SELFPAY ==
[2023-07-02 14:39] LABS: Anion Gap 7 (5-15); BUN 22 mg/dL (7-18); BUN/Creat Ratio 16.1 RATIO (10-20); Calcium,Total 8.7 mg/dL (8.5-10.1); Chloride 105 mmol/L (98-107); Creatinine, Serum 1.37 mg/dL (0.55-1.02); EST Glomerular Filtration Rate 41 mL/min (>60); Est Glom Filt Rate - Afr Amer 49 mL/min (>60); Glucose 138 mg/dL (74-106); Potassium 3.5 mmol/L (3.5-5.1); Sodium Level 142 mmol/L (136-145)
== END | disposition home or self-care (01) ==
LOC: LAB 10:16
PROVIDERS: PCP Family Medicine; Referring Provider Physician Assistant Medical; Visit Provider Physician Assistant Medical
DX: I10 Essential (primary) hypertension (principal); I48.91 Unspecified atrial fibrillation; E78.2 Mixed hyperlipidemia; Z95.5 Presence of coronary angioplasty implant and graft
CPT/HCPCS: 36415; 80048

== ENCOUNTER 2023-08-13 14:49 | Inpatient (IN) | payer MEDICARE, MEDICAID, SELFPAY ==
[2023-08-13] VITALS (13 sets, daily range): BP systolic 111–144; BP diastolic 64–99; PULSE 90–121; RESP 19–26; TEMP 35.7–37.1; O2SAT 97–100; BMI 38.3; BMI 36.9
--- NOTE | 2023-08-13 15:04 | ED.RN ---
SATYA, SHARA ATTEMPTING TO GET PATIENT CHANGED INTO HOSPITAL GOWN AND PUT HER ON THE DIAMOND WHEEL MOLDER. PT REFUSING. PT STATES ITS TOO COLD. RN STATES ITS IMPORTANT TO CHANGE INTO A GOWN PER POLICY AND WE ARE GOING TO BE DOING AN EKG TO LOOK AT HER HEART. PT CHANGES INTO GOWN BUT CONTINUES TO ANSWER QUESTIONS. PT STATES WE ARE BEING ROUGH WITH HER. PTS DAUGHTER STATES MOM, THEY ARE TRYING TO HELP YOU AND YOU ARE MAKING THIS HARDER THAN IT NEEDS TO BE. THIS RN STATES SHE WOULD LIKE TO START AN IV AND START BLOOD WORK FOR HER CHEST PAIN. PT STATES NO, YOU ARE NOT HURTING ME. RN STATES IT DOES HURT BUT IMPORTANT WE GET HER THE CARE SHE NEEDS. PT STATES SHE DOES NOT WANT THAT HELP. RN STATES IF YOU WOULD LIKE TO LEAVE, WE CAN GET A WHEELCHAIR AND GET YOU OUT OF HERE. DAUGHTER STATES MOM, THEY ARE TRYING TO HELP YOU AND YOURE REFUSING HELP! DAUGHTER HAD TO STEP OUT OF ROOM FOR A MOMENT. RN STATES HERE IS THE CALL LIGHT AND TO LET US KNOW IF SHE WOULD LIKE TO LEAVE OR STAY. DR. OVALLE NOTIFIED.
[2023-08-13 16:04] LABS: Absolute Lymphocyte Count 0.43 X10^3/uL (0.83-4.51); Absolute Neutrophil Count 7.8 X10^3/uL (2.0-7.7); Basophil# 0.03 X10^3/uL; Basophil% 0.3 % (0-1); Eosinophil# 0.12 X10^3/uL; Eosinophils% 1.3 % (0-5); Hematocrit 36.6 % (37-47); Hemoglobin 11.3 g/dL (12.0-15.0); Lymphocyte # 0.43 X10^3/ul (0.83-4.51); Lymphocyte % 4.7 % (19-41); Mean Corp Hgb Conc 30.9 g/dL (32-36); Mean Corpuscular Hgb 30.5 pg (27.0-32.0); Mean Corpuscular Volume 98.9 fL (81-99); Mean Platelet Vol. 10.8 fl (6.2-12.0); Monocyte# 0.78 X10^3/uL; Monocyte% 8.5 % (0-10); NRBC Flagged by Analyzer 0 % (0-5); Neutrophil # 7.79 X10^3/uL (2.7-7.7); Neutrophil % 84.7 % (47-70); POSITIVE DIFFERENTIAL YES; Platelet Count 206 K/mm3 (150-450); RBC Distribution Width CV 15.2 % (11.6-14.6); RBC Distribution Width SD 54.4 fl (35.1-43.9); White Blood Count 9.2 K/mm3 (4.4-11.0)
--- NOTE | 2023-08-13 16:04 | RAD_ITS ---
STUDY: X-RAY CHEST REASON FOR EXAM: Female, 68 years old. Shortness of breath TECHNIQUE: PA and lateral COMPARISON: June 10, 2023 FINDINGS: The lungs are clear and expanded. There is no demonstrated pleural abnormality. Heart is enlarged.. Normal mediastinum and tracie. Normal visualized pulmonary arteries. Mildly calcified aortic arch and descending thoracic aorta. Dorsal spine and shoulders demonstrate degenerative changes. Normal visualized ribs, and clavicles.. There is no demonstrated abnormality of the visualized soft tissue structures of the upper abdomen. RAD/Chest PA and Lateral IMPRESSION: ASHD. No acute cardiopulmonary pathology Electronically Signed: John Chavez MD at 16:24 EST ,
[2023-08-13 16:06] LABS: ALB/GLOB Ratio 0.6 RATIO (0.9-2.4); AST(SGOT) 149 U/L (15-37); Alanine Aminotransfer ALT/SGPT 164 U/L (13-56); Alkaline Phosphatase 141 U/L (45-117); Anion Gap 2 (5-15); BUN 21 mg/dL (7-18); BUN/Creat Ratio 14.2 RATIO (10-20); Calcium,Total 8.3 mg/dL (8.5-10.1); Chloride 104 mmol/L (98-107); Creatinine, Serum 1.48 mg/dL (0.55-1.02); Differential Indicated SCAN CRITERIA MET; EST Glomerular Filtration Rate 37 mL/min (>60); Est Glom Filt Rate - Afr Amer 45 mL/min (>60); Estimated Creatinine Clearance 27.45 ml/min; Globulin 4.7 g/dL (2.2-4.2); Glucose 213 mg/dL (74-106); Potassium 3.5 mmol/L (3.5-5.1); Protein, Total 7.7 g/dL (6.4-8.2); Sodium Level 136 mmol/L (136-145); Troponin-I HS (w/2H Reflex) 13 pg/mL (3.0-54.0)
[2023-08-13 16:14] LABS: Lactic Acid 1.5 mmol/L (0.4-1.9)
--- NOTE | 2023-08-13 16:26 | EX.ED.DYSGE1 ---
HPI History of Present Illness Chief Complaint: Chest Pain Detail of Chief Complaint: Multiple symptoms per Patient. Daughter is concerned because she is not or Informant: patient and family Onset/Context/Timing Onset: - (Per HPI negative) Context: - (Unable to determine) Timing: - (Patient has given different versions of the symptoms.) Quality: Per HPI narrative Location: Head, chest, GI, and respiratory Current Severity: Unable to quantitate Maximum Severity: Unable to quantitate Worsened by: Unknown Relieved by: Per patient nothing Associated Symptoms Associated Symptoms: Patient's thought process is slightly tangential and she is disoriented. Narrative Narrative: Patient is a 68-year-old woman with history of coronary disease, atrial fibrillation, on long-term anticoagulant, type 2 diabetes, essential hypertension and mixed hyperlipidemia who was sent to the emergency department because of reported chest pain and confusion. When asked where patient was having chest pain she pointed to the right upper quadrant region. Patient is not oriented to time. Patient complains of headache. She initially reported it has been present for some time then she reported it started today. She denies hearing problems. She denies runny nose, congestion and sore throat. She denied cough or shortness of breath. Daughter states she has a cough and shortness of breath. She reports nausea. When asked if she has diarrhea she states that she has nausea. She does not know the color of her stool consistency of her stool. She has had frequency. She also complains of aches and lower extremity exam. Per daughter chest pain started today and her doctor states she normally does not complain of chest pain. Patient informed me she has had chest pain for weeks. Patient is not a good informant and history is limited to what has been documented. [facility] Medical History Anemia Anxiety Anxiety Arthritis Atherosclerotic heart disease of [place] coronary artery without angina pectoris Back pain Broken rib Cancer Cardiology follow-up encounter Chronic kidney disease (CKD) stage G3b/A1, moderately decreased glomerular filtration rate (GFR) between 30-44 mL/min/1.73 square meter and albuminuria creatinine ratio less than 30 mg/g Chronic respiratory insufficiency Closed intertrochanteric fracture of left femur COPD (chronic obstructive pulmonary disease) DDD (degenerative disc disease) Diabetes Diabetes mellitus type 2 in obese Diabetic neuropathy Difficulty swallowing DVT (deep venous thrombosis) Essential hypertension Excessive bleeding Fall at home Former smoker Gastric reflux Gastroparesis Gastroparesis GERD (gastroesophageal reflux disease) High cholesterol History of cervical cancer History of CHF (congestive heart failure) History of diverticulitis History of DVT (deep vein thrombosis) History of edema History of heart attack History of Holter monitoring History of IBS History of renal disease History of stress test Hypothyroidism Injury of back Insulin dependent diabetes mellitus Lung nodule Migraine headache Mixed hyperlipidemia On home oxygen therapy [place] (obstructive sleep apnea) Paroxysmal A-fib Paroxysmal atrial fibrillation Post-menopausal Presence of stent in coronary artery (~12/07/03) Pulmonary embolism Pulmonary embolism Pulmonary hypertension RLS (restless legs syndrome) Sleep apnea Thyroid disease Tinnitus Uses wheelchair Walker as ambulation aid Wears dentures Wears glasses Wears hearing aid Home Medications atorvastatin 40 mg tablet 40 mg PO QHS CHOLESTEROL LOWERING 02/03/18 [History Last Taken 06/03/23] levothyroxine 100 mcg tablet 100 mcg PO DAILY THYROID 02/03/18 [History Last Taken 06/03/23] ascorbic acid (vitamin C) 500 mg tablet 500 mg PO DAILY@1700 supplement 05/17/18 [History Last Taken 06/03/23] potassium chloride 10 mEq tablet,extended release 10 meq PO DAILY supplement 06/08/19 [History Last Taken 06/03/23] allopurinol 100 mg tablet 100 mg PO DAILY gout 08/11/19 [History Last Taken 06/03/23] furosemide 20 mg tablet 20 mg PO BID FLUID 10/25/20 [History Last Taken 06/03/23] cholecalciferol (vitamin D3) 50 mcg (2,000 unit) capsule 2,000 unit PO DAILY SUPPLEMENT 12/13/20 [History Last Taken 06/02/23] buspirone 10 mg tablet 10 mg PO BID depression 06/12/22 [History Last Taken 06/03/23] duloxetine 60 mg capsule,delayed release 60 mg PO DAILY MENTAL HEALTH 06/12/22 [History Last Taken 06/03/23] fexofenadine 180 mg tablet 180 mg PO DAILY ALLERGIES 06/12/22 [History Last Taken 06/03/23] insulin glargine 100 unit/mL (3 mL) subcutaneous pen (Lantus Solostar U-100 Insulin) 60 unit subcut BID DM 06/12/22 [History Last Taken 06/03/23] insulin lispro 100 unit/mL subcutaneous pen 14 unit subcut BREAKFAST DIABETES 06/12/22 [History Last Taken 06/03/23] insulin lispro 100 unit/mL subcutaneous pen 14 unit subcut LUNCH DIABETES 06/12/22 [History Last Taken 06/02/23] insulin lispro 100 unit/mL subcutaneous pen 24 unit subcut DINNER DIABETES 06/12/22 [History Last Taken 06/02/23] sodium chloride 0.65 % nasal spray aerosol (Saline Mist) 2 spray intranasal TID PRN ALLERGIES 06/12/22 [History Last Taken 06/03/23] nitroglycerin 0.4 mg sublingual tablet 0.4 mg sublingual Q5-15M PRN chest pain #25 tabs 10/21/22 [Rx Last Taken 12/17/22] albuterol sulfate 90 mcg/actuation aerosol inhaler 2 puff inhalation PRN PRN COPD 12/12/22 [History Last Taken 12/17/22] amlodipine 5 mg tablet 5 mg PO DAILY BP 12/12/22 [History Last Taken 06/03/23] ferrous sulfate 325 mg (65 mg iron) tablet 325 mg PO DAILY SUPPLEMENT 12/12/22 [History Last Taken 06/03/23] alendronate 70 mg tablet 70 mg PO TU BONES 06/03/23 [History Last Taken 06/03/23] buspirone 10 mg tablet 15 mg PO QHS 06/03/23 [History Last Taken 06/02/23] nystatin 100,000 unit/gram topical powder ([facility]) 1 applic topical TID PRN SKIN 06/03/23 [History Last Taken Unknown] triamcinolone acetonide 0.1 % topical cream 1 applic topical DAILY PRN SKIN 06/03/23 [History Last Taken 06/01/23] ranolazine 500 mg tablet,extended release,12 hr 500 mg PO BID #60 tabs 07/02/23 [Rx Last Taken Unknown] isosorbide mononitrate 120 mg tablet,extended release 24 hr 120 mg PO DAILY HEART #30 tabs 07/30/23 [Rx Last Taken Unknown] apixaban 5 mg tablet (Eliquis) 5 mg PO BID #60 tabs 08/12/23 [Rx Last Taken Unknown] clopidogrel 75 mg tablet 75 mg PO DAILY Pt told me today she ran out 4 days ago! #30 tabs 08/12/23 [Rx Last Taken Unknown] famotidine 20 mg tablet 20 mg PO DAILY #30 tabs 08/12/23 [Rx Last Taken Unknown] aspirin 81 mg tablet,delayed release 81 mg PO DAILY 08/13/23 [History Last Taken Unknown] cyclobenzaprine 10 mg tablet 10 mg PO BID 08/13/23 [History Last Taken Unknown] metoprolol tartrate 100 mg tablet 150 mg PO BID Heart Rate 08/13/23 [History Last Taken Unknown] oxycodone 5 mg tablet 5 mg PO Q8H 08/13/23 [History Last Taken Unknown] Allergy/AdvReac Type Severity Reaction Status Date / Time metoclopramide [From Reglan] Allergy Intermediate Itching Verified 08/13/23 14:50 ciprofloxacin [From Cipro] Allergy Hives Verified 08/13/23 14:50 latex Allergy matos me Verified 08/13/23 14:50 niacin Allergy Hives Verified 08/13/23 14:50 [From Niaspan Extended-Release] ranolazine [From Ranexa] Allergy Itching Verified 08/13/23 14:50 orphenadrine AdvReac Mild PT UNABLE Verified 08/13/23 15:19 TO RESPOND-NEEDS F/U adhesive tape AdvReac Other Verified 08/13/23 14:50 orphenadrine citrate AdvReac groggy Verified 08/13/23 14:50 [From Norgesic] Family History Mother CAD (coronary artery disease) Father CAD (coronary artery disease) Brother CAD (coronary artery disease) Asthma Sister Hypertension Sister Diabetes Sister Heart disease Surgical History History of cardiac catheterization History of cholecystectomy History of coronary artery stent placement (06/04/23) History of hernia repair History of knee surgery History of left heart catheterization (LHC) (~09/28/19) History of nasal surgery History of surgery on wrist History of total abdominal hysterectomy History of tubal ligation Hx of surgical procedure Presence of coronary angioplasty implant and graft (~12/07/03) Social History Smoking Status: Former smoker alcohol intake: never substance use type: does not use caffeine: Yes Type: coffee Number of servings: 1 ROS ROS ED Constitutional Constitutional ED: Reports fever(s) and other Details: Per daughter temperature at the physician's office was 100.8. Eyes Eyes: Denies blurry vision or change in vision ENT ENT ED: Denies ear pain or sore throat Cardiovascular Cardiovascular: Reports chest pain; Denies palpitations or racing heartbeat Respiratory/Chest Respiratory/Chest: Reports cough and dyspnea Gastrointestinal Gastrointestinal: Reports nausea; Denies abdominal pain, constipation, diarrhea or vomiting Genitourinary Genitourinary ED: Reports urinary frequency; Denies dysuria or hematuria Musculoskeletal Musculoskeletal: Reports back pain and myalgias; Denies arthralgias Integumentary Denies rash Neurologic Neurologic: Reports headache(s) and weakness; Denies paresthesias Endocrine Endocrinology: Reports cold intolerance and heat intolerance Hematologic/Lymphatic Hematologic/Lymphatic: Reports systems reviewed and no addt'l complaints, except as documented EXAM Physical Exam Const Vital Signs: 08/13/23 14:50 08/13/23 15:20 08/13/23 16:00 Temperature 96.2 F L 98.7 F Temperature Source Temporal Oral Pulse Rate 112 H Respiratory Rate 22 H Respiratory Effort Normal Blood Pressure 134/99 H Blood Pressure Mean 110 Pulse Ox 100 Oxygen Delivery Method Nasal Cannula Oxygen Flow Rate (L/min) 3 08/13/23 16:00 08/13/23 17:22 Temperature Temperature Source Pulse Rate 102 H 110 H Respiratory Rate 26 H 24 H Respiratory Effort Blood Pressure 129/85 H 111/73 Blood Pressure Mean 99 85 Pulse Ox 98 100 Oxygen Delivery Method Nasal Cannula Oxygen Flow Rate (L/min) 3 Positive well nourished, well developed and obese General Appearance ED: well developed, NAD and pallor Nutritional Appearance: obese HEENT Reports TM's clear and dry mucous membranes HEENT Narrative: Head is atraumatic and normocephalic. Tympanic Membrane ED: Yes TM's clear Mouth ED: Yes dry mucous membranes Mouth: dry mucous membranes Eyes PERRL and EOMs intact bilaterally General Eye ED: Negative for pale conjunctiva or scleral icterus Neck no lymphadenopathy, supple and no JVD Chest Wall inspection of chest normal and palpation of chest normal Resp normal respiratory effort and clear to auscultation bilaterally Cardio no murmurs Rhythm: abnormal rhythm irregularly irregular GI normal to inspection, nondistended, normoactive bowel sounds, non-tender, non-distended and no masses; Negative for hepatosplenomegaly Back/Spine no CVA tenderness Extremity General Extremety ED: Yes edema and tenderness General Extremity: edema Neuro No oriented x3 and CN's II-XII intact bilaterally Sensorium / Orientation: Negative for alert Psych Attitude: agitated Mood & Affect: depressed Skin no rashes or lesions noted, no wounds and No skin turgor normal General Skin Exam: pallor; Negative for jaundice MDM MDM MDM Narrative Medical decision making narrative: Of history of coronary disease with multiple risk factors for cardiac disease will obtain a troponin and EKG to rule out acute ischemic changes. Because of her respiratory symptoms will obtain chest x-ray and white count. Because of her urinary symptoms will have nurse perform a straight cath to obtain adequate urine specimen is there is no evidence of metabolic or infectious cause we will obtain a CAT scan of her head since she is disoriented and not at baseline per daughter. History & Record Review Discussion w/independent historian: Patient and Family Additional record(s) reviewed:: Prior ED visit and Prior labs Lab Data Attestation: I reviewed the patient's lab results. Lab results narrative: Count is normal with slight shift. Patient has mild anemia with normal indices. Competence of metabolic panel is marked for creatinine of 1.48 with an estimated GFR of 37. Glucose is 213 with a normal CO2 and anion gap. Total bili, AST and ALT are all elevated. Since initially she complained of pain in the right upper quadrant and there is no history of cholecystectomy will obtain ultrasound of the right upper quadrant to determine patient has cholecystitis. Urine reveals specific gravity 1.015, protein, occult blood and leukoesterase. Negative for nitrites. Microscopic reveals no red cells 5-10 WBCs with 3+ bacteria. This was a straight cath specimen. Culture was sent. Patient was treated with a gram of Rocephin. Labs: Laboratory Results - last 24 hr 08/13/23 08/13/23 15:30 16:20 WBC 9.2 RBC 3.70 L Hgb 11.3 L Hct 36.6 L MCV 98.9 MCH 30.5 MCHC 30.9 L RDW Std Deviation 54.4 H RDW Coeff of [place] 15.2 H Plt Count 206 MPV 10.8 Immature Gran % (Auto) 0.500 Neut % (Auto) 84.7 H Lymph % (Auto) 4.7 L [place] % (Auto) 8.5 Eos % (Auto) 1.3 Baso % (Auto) 0.3 Absolute Neuts (auto) 7.8 H Absolute Lymphs (auto) 0.43 L Nucleated RBC % 0 Differential Comment SCANNED Sodium 136 Potassium 3.5 Chloride 104 Carbon Dioxide 30.0 Anion Gap 2 L BUN 21 H Creatinine 1.48 H Estim Creat Clear Calc 27.45 Est GFR (MDRD) Af Amer 45 L Est GFR (MDRD) Non-Af 37 L BUN/Creatinine Ratio 14.2 Glucose 213 H Lactic Acid 1.5 Calcium 8.3 L Total Bilirubin 1.50 H AST 149 H ALT 164 H Alkaline Phosphatase 141 H Troponin I High Sens 13 Total Protein 7.7 Albumin 3.0 L Globulin 4.7 H Albumin/Globulin Ratio 0.6 L Urine Color Yellow Urine Clarity Sl. Cloudy Urine pH 5.0 Ur Specific [place] 1.015 Urine Protein 30 H Urine Glucose (UA) Normal Urine Ketones Negative Urine Occult Blood 25 H Urine Nitrite Negative Urine Bilirubin Negative Urine Urobilinogen 4 H Ur Leukocyte Esterase 100 H Urine RBC 0 SEEN Urine WBC 5-10 SEEN Ur Squamous Epith Cells 0-5 SEEN Urine Bacteria 3+ Urine Mucus 0 SEEN Radiography Diagnostic Testing: Clinical Impression(s) from Imaging Studies Chest X-Ray 08/13/23 16:04 IMPRESSION: ASHD. No acute cardiopulmonary pathology Electronically Signed: John Chavez MD at 16:24 EST , Gallbladder Ultrasound 08/13/23 16:34 IMPRESSION: Enlarged diffusely fatty infiltrated liver. Status post cholecystectomy. Marked dilatation of the distal common bile duct without definitive evidence for intraductal stone. There is limited visualization of the pancreas. CT or MRI/MRCP recommended for further evaluation of pancreas and etiology for ductal dilatation Electronically Signed: John Chavez MD at 17:53 EST , Management Discussion w/another healthcare provider: Hospitalist and [employer] (Her friend on-call for GI was consulted in light of the ultrasound findings. Dr. Lewis recommended MRI/MRCP.) Treatment and Re-Evaluation :: Patient was treated with Rocephin for her UTI. Because she is encephalopathic patient was placed in 4-point restraints because she became belligerent and was not redirectable. Suspect this is due to her encephalopathy. Capacity form was filled out. Discharge Plan Dx/Rx/DC Orders Clinical Impression: Encephalopathy acute, Diabetes mellitus type 2 in obese, Complicated urinary tract infection, Elevated transaminase level, Common bile duct dilatation, Paroxysmal atrial fibrillation, History of hypertension, Presence of stent in coronary artery, Pulmonary hypertension, Anemia Disposition Disposition: [facility] Capacity Capacity Assessment Tool Can the patient make a choice & communicate that choice?: No Can the patient understand benefits, risks and alternatives?: No Can the patient make a logical, rational choice?: No Is the choice the patient makes consistent w/ their values?: Unable to Determine Is there an impending, emergent risk to the patient?: Unable to Determine (There is a possibility) Does the patient have an Advance Directive?: Unable to Determine Is there a Surrogate Available?: Yes (Daughter left he did not want to take her mother home.) i.e. close relative (spouse, child, parent, sibling)?: Yes (Previously documented daughter left because mother stated she did not want to stay when she was told she had to be admitted.)
[2023-08-13 16:29] LABS: Mucous, Urine 0 SEEN /hpf (<or=2+); Red Blood Cells-Urine 0 SEEN /hpf (0-5)
[2023-08-13 16:33] LABS: Color, Urine Yellow (Yellow); Glucose, Dipstick Normal (Normal); Ketone-Dipstick Negative (Negative); Leukocyte Esterase-Dipstick 100 /ul (Negative); Nitrite-Dipstick Negative (Negative); Occult Blood-Urine 25 /ul (Negative); Protein-Dipstick 30 mg/dl (Negative); Specific Gravity, Urine 1.015 (1.002-1.030); Urine Bilirubin Dipstick Negative (Negative); Urine Clarity Sl. Cloudy (Clear); Urine Urobilinogen 4 mg/dl (Normal)
--- NOTE | 2023-08-13 16:34 | US_ITS ---
STUDY: ABDOMINAL ULTRASOUND - RIGHT UPPER QUADRANT REASON FOR VISIT: Female, 68 years old PAIN -- Elevated transaminases, alkaline phosphatase and b TECHNIQUE: Ultrasound evaluation of the right upper quadrant was performed with real-time and static urban-scale imaging. TECHNICAL QUALITY: Adequate. COMPARISON: None. FINDINGS: Liver: The liver measures 19.9 cm. There is diffusely increased echogenicity of the liver. The bile ducts are within normal limits. There is hepatic color flow. The direction of portal flow is hepatopetal. There is no demonstrated mass lesion. Gallbladder: Nonvisualized status post cholecystectomy. Common Bile Duct (C.B.D.): The common bile duct measures 22 mm. Pancreas: Limited visualization of pancreas due to bowel gas producing artifact.. No definitive evidence for acute pancreatitis or mass. There does appear to be mild dilatation of the pancreatic duct Right Kidney: Normal size of the right kidney. The right kidney measures 10.9 x 5.2 x 4.7 cm. Normal renal cortex.. Small cyst measuring 1.4 x 1 x 1 cm. There is no right hydronephrosis. US/Gallbladder IMPRESSION: Enlarged diffusely fatty infiltrated liver. Status post cholecystectomy. Marked dilatation of the distal common bile duct without definitive evidence for intraductal stone. There is limited visualization of the pancreas. CT or MRI/MRCP recommended for further evaluation of pancreas and etiology for ductal dilatation Electronically Signed: John Chavez MD at 17:53 EST ,
[2023-08-13 16:42] LABS: Bacteria 3+ /hpf (None Seen); Squamous Epithelial Cells - UA 0-5 SEEN /hpf (5-10); White Blood Cells 5-10 SEEN /hpf (0-5)
[2023-08-13] MEDS: Ceftriaxone 1 GM/50 ML BAG IV (17:21)
[2023-08-13 17:24] LABS: Differential Comment SCANNED
[2023-08-13 17:36] LABS: Reflex Troponin-HS? (from REC) Y
--- NOTE | 2023-08-13 18:12 | ED.RN ---
PT HIT CALL LIGHT REQUESTING TO SPEAK TO NURSE. PT STATES SHE WANTS TO SIT IN THE CHAIR. RN STATES IT IS NOT A GOOD IDEA SINCE SHE IS CONNECTED TO IV ANTIBIOTICS, MONITORS AND IS CONFUSED. RN STATES SHE NEEDS TO REMAIN IN BED AT THIS TIME. PATIENT BECOMES VERBALLY AGGRESSIVE AND YELLING AT RN. RN STATES SHE WILL NOT TOLERATE BEING YELLED AT. NADIYA, RN ENTERS ROOM ASKING PATIENT WHAT THE PROBLEM IS. PT YELLING SHE WANTS TO SIT IN THE CHAIR. NADIYA ALSO STATES SHE NEEDS TO REMAIN IN BED AT THIS TIME. RN ENTERS PATIENT ROOM. PT ATTEMPTING TO CRAWL OUT OF BED AND LEAVE. PT ASKED BY RN TO LAY BACK IN BED. PT STATES SHE IS LEAVING AND NEEDS HELP GETTING OUT OF BED. DR. OVALLE AT BEDSIDE ASKING PATIENT TO LAY IN BED. DR. OVALLE STATES PATIENT IS NOT MENTAL COMPETENT TO MAKE MEDICAL DECISIONS. PER DR. OVALLE, PUT PATIENT IN 4 POINT LEATHER RESTRAINTS. PT HAD BEEN RESTRAINED
--- NOTE | 2023-08-13 18:47 | ED.RN ---
attempt to call Maci, Patients daughter. unable to get ahold of her. message left to call ED
--- NOTE | 2023-08-13 18:52 | HP.PCM.HOS_ITS ---
[facility] - General General Date of Admission: 08/13/23 Date of Service: 08/13/23 Chief Complaint: Chest Pain, RUQ Pain, Confusion and Agitation. HPI Narrative RUI PANDA, is a 68 F with a past with a past medical history of essential hypertension, hyperlipidemia, hypothyroidism, DM-2; of unknown control, obesity; with a BMI of 38.4 this admission, PARESH; noncompliant with CPAP, history of Paroxysmal Atrial Fibrillation; on Apixaban, history of CAD; s/p WA and stent (2003) and recent in-stent stenosis (06/04/2023), history of CHF, history of DVT/PE, history of tobacco abuse (quit 2000); with subsequent COPD, history of cholecystectomy, history of cervical cancer, CKD; stage III, OA; with chronic back pain, chronic anemia, RLS, GERD, history of UTI and depression who presents to [facility] ER complaining of chest pain, RUQ pain, confusion and agitation. Ms. Panda is not a fully-reliable historian at this time since she is agitated and in 4-point restraints since being told she could not go home so information was gathered from chart, medical staff and computer. According to the records her symptoms began approximately 1 day prior to admission with patient complaining of headache and right upper quadrant pain with obvious confusion. The patient's daughter reported to the ER staff that she had cough and shortness of breath with the patient adding that she was nauseous and was having more frequent stools. When pressed about her chest pain she stated it had been present for weeks and when asked to locate it she pointed to her right upper quadrant. In the ER she was diagnosed with a suspected common bile duct stone on gallbladder ultrasound with an AST of 149, ALT of 164 and alkaline phosphatase of 141 with an elevated total bilirubin of 1.5 mg/dL present on admission along with a UA that is positive for acute cystitis; without hematuria complicated by severe infectious encephalopathy requiring 4 point restraints and she was then admitted to the ICU per protocol due to behavior management issues for status expected to be greater than 48 hours. [facility] Medical History Anemia Anxiety Anxiety Arthritis Atherosclerotic heart disease of [place] coronary artery without angina pectoris Back pain Broken rib Cancer Cardiology follow-up encounter Chronic kidney disease (CKD) stage G3b/A1, moderately decreased glomerular filtration rate (GFR) between 30-44 mL/min/1.73 square meter and albuminuria creatinine ratio less than 30 mg/g Chronic respiratory insufficiency Closed intertrochanteric fracture of left femur COPD (chronic obstructive pulmonary disease) DDD (degenerative disc disease) Diabetes Diabetes mellitus type 2 in obese Diabetic neuropathy Difficulty swallowing DVT (deep venous thrombosis) Essential hypertension Excessive bleeding Fall at home Former smoker Gastric reflux Gastroparesis Gastroparesis GERD (gastroesophageal reflux disease) High cholesterol History of cervical cancer History of CHF (congestive heart failure) History of diverticulitis History of DVT (deep vein thrombosis) History of edema History of heart attack History of Holter monitoring History of IBS History of renal disease History of stress test Hypothyroidism Injury of back Insulin dependent diabetes mellitus Lung nodule Migraine headache Mixed hyperlipidemia On home oxygen therapy PARESH (obstructive sleep apnea) Paroxysmal A-fib Paroxysmal atrial fibrillation Post-menopausal Presence of stent in coronary artery (~12/07/03) Pulmonary embolism Pulmonary embolism Pulmonary hypertension RLS (restless legs syndrome) Sleep apnea Thyroid disease Tinnitus Uses wheelchair Walker as ambulation aid Wears dentures Wears glasses Wears hearing aid Home Medications atorvastatin 40 mg tablet 40 mg PO QHS CHOLESTEROL LOWERING 02/03/18 [History Last Taken 06/03/23] levothyroxine 100 mcg tablet 100 mcg PO DAILY THYROID 02/03/18 [History Last Taken 06/03/23] ascorbic acid (vitamin C) 500 mg tablet 500 mg PO DAILY@1700 supplement 05/17/18 [History Last Taken 06/03/23] potassium chloride 10 mEq tablet,extended release 10 meq PO DAILY supplement 06/08/19 [History Last Taken 06/03/23] allopurinol 100 mg tablet 100 mg PO DAILY gout 08/11/19 [History Last Taken 06/03/23] furosemide 20 mg tablet 20 mg PO BID FLUID 10/25/20 [History Last Taken 06/03/23] cholecalciferol (vitamin D3) 50 mcg (2,000 unit) capsule 2,000 unit PO DAILY SUPPLEMENT 12/13/20 [History Last Taken 06/02/23] buspirone 10 mg tablet 10 mg PO BID depression 06/12/22 [History Last Taken 06/03/23] duloxetine 60 mg capsule,delayed release 60 mg PO DAILY MENTAL HEALTH 06/12/22 [History Last Taken 06/03/23] fexofenadine 180 mg tablet 180 mg PO DAILY ALLERGIES 06/12/22 [History Last Take n 06/03/23] insulin glargine 100 unit/mL (3 mL) subcutaneous pen (Lantus Solostar U-100 Insulin) 60 unit subcut BID DM 06/12/22 [History Last Taken 06/03/23] insulin lispro 100 unit/mL subcutaneous pen 14 unit subcut BREAKFAST DIABETES 06/12/22 [History Last Taken 06/03/23] insulin lispro 100 unit/mL subcutaneous pen 14 unit subcut LUNCH DIABETES 06/12/22 [History Last Taken 06/02/23] insulin lispro 100 unit/mL subcutaneous pen 24 unit subcut DINNER DIABETES 06/12/22 [History Last Taken 06/02/23] sodium chloride 0.65 % nasal spray aerosol (Saline Mist) 2 spray intranasal TID PRN ALLERGIES 06/12/22 [History Last Taken 06/03/23] nitroglycerin 0.4 mg sublingual tablet 0.4 mg sublingual Q5-15M PRN chest pain #25 tabs 10/21/22 [Rx Last Taken 12/17/22] albuterol sulfate 90 mcg/actuation aerosol inhaler 2 puff inhalation PRN PRN COPD 12/12/22 [History Last Taken 12/17/22] amlodipine 5 mg tablet 5 mg PO DAILY BP 12/12/22 [History Last Taken 06/03/23] ferrous sulfate 325 mg (65 mg iron) tablet 325 mg PO DAILY SUPPLEMENT 12/12/22 [History Last Taken 06/03/23] alendronate 70 mg tablet 70 mg PO TU BONES 06/03/23 [History Last Taken 06/03/23] buspirone 10 mg tablet 15 mg PO QHS 06/03/23 [History Last Taken 06/02/23] nystatin 100,000 unit/gram topical powder (Nyamyc) 1 applic topical TID PRN SKIN 06/03/23 [History Last Taken Unknown] triamcinolone acetonide 0.1 % topical cream 1 applic topical DAILY PRN SKIN 06/03/23 [History Last Taken 06/01/23] ranolazine 500 mg tablet,extended release,12 hr 500 mg PO BID #60 tabs 07/02/23 [Rx Last Taken Unknown] isosorbide mononitrate 120 mg tablet,extended release 24 hr 120 mg PO DAILY HEART #30 tabs 07/30/23 [Rx Last Taken Unknown] apixaban 5 mg tablet (Eliquis) 5 mg PO BID #60 tabs 08/12/23 [Rx Last Taken Unknown] clopidogrel 75 mg tablet 75 mg PO DAILY Pt told me today she ran out 4 days ago! #30 tabs 08/12/23 [Rx Last Taken Unknown] famotidine 20 mg tablet 20 mg PO DAILY #30 tabs 08/12/23 [Rx Last Taken Unknown] aspirin 81 mg tablet,delayed release 81 mg PO DAILY 08/13/23 [History Last Taken Unknown] cyclobenzaprine 10 mg tablet 10 mg PO BID 08/13/23 [History Last Taken Unknown] metoprolol tartrate 100 mg tablet 150 mg PO BID Heart Rate 08/13/23 [History Last Taken Unknown] oxycodone 5 mg tablet 5 mg PO Q8H 08/13/23 [History Last Taken Unknown] Allergy/AdvReac Type Severity Reaction Status Date / Time metoclopramide [From Reglan] Allergy Intermediate Itching Verified 08/13/23 14:50 ciprofloxacin [From Cipro] Allergy Hives Verified 08/13/23 14:50 latex Allergy matos me Verified 08/13/23 14:50 niacin Allergy Hives Verified 08/13/23 14:50 [From Niaspan Extended-Release] ranolazine [From Ranexa] Allergy Itching Verified 08/13/23 14:50 orphenadrine AdvReac Mild PT UNABLE Verified 08/13/23 15:19 TO RESPOND-NEEDS F/U adhesive tape AdvReac Other Verified 08/13/23 14:50 orphenadrine citrate AdvReac groggy Verified 08/13/23 14:50 [From Norgesic] Family History Mother CAD (coronary artery disease) Father CAD (coronary artery disease) Brother CAD (coronary artery disease) Asthma Sister Hypertension Sister Diabetes Sister Heart disease Surgical History History of cardiac catheterization History of cholecystectomy History of coronary artery stent placement (06/04/23) History of hernia repair History of knee surgery History of left heart catheterization (LHC) (~01/07/20) History of nasal surgery History of surgery on wrist History of total abdominal hysterectomy History of tubal ligation Hx of surgical procedure Presence of coronary angioplasty implant and graft (~12/07/03) Social History Smoking Status: Former smoker alcohol intake: never substance use type: does not use caffeine: Yes Type: coffee Number of servings: 1 ROS ROS Narrative Full review of systems was not possible at this time due to patient's severe infectious encephalopathy. Review of Systems ROS Unobtainable: due to encephalopathy Vital Signs Vital Signs Vital Signs: 08/13/23 14:50 08/13/23 15:20 08/13/23 16:00 Temperature 96.2 F L 98.7 F Temperature Source Temporal Oral Pulse Rate 112 H Respiratory Rate 22 H Respiratory Effort Normal Blood Pressure 134/99 H Blood Pressure Mean 110 Pulse Ox 100 Oxygen Delivery Method Nasal Cannula Oxygen Flow Rate (L/min) 3 08/13/23 16:00 08/13/23 17:22 Temperature Temperature Source Pulse Rate 102 H 110 H Respiratory Rate 26 H 24 H Respiratory Effort Blood Pressure 129/85 H 111/73 Blood Pressure Mean 99 85 Pulse Ox 98 100 Oxygen Delivery Method Nasal Cannula Oxygen Flow Rate (L/min) 3 Weight Weight: 203 lb 0.732 oz Body Mass Index (BMI) 38.3 Physical Exam Const alert Constitutional Narrative: Patient is agitated and in 4-point restraints. General Appearance: uncooperative Orientation / Consciousness: confused HEENT normocephalic, head/scalp atraumatic, hearing grossly normal bilaterally and moist oral mucous membranes Eyes PERRL, EOMs intact bilaterally and conjunctivae normal Neck no lymphadenopathy, supple and no JVD Resp normal respiratory effort, no retractions, no use of accessory muscles and clear to auscultation bilaterally Cardio regular rate and regular rhythm GI normal to inspection, nondistended, normoactive bowel sounds, soft to palpation, non-tender and non-distended GI Narrative: Obese. Extremity normal to inspection Skin Skin Narrative: Patient has no evidence of rash at this time. Neuro CN's II-XII intact bilaterally, moves all extremities and no focal motor deficits Sensorium / Orientation: awake, alert and oriented to person Speech: speech normal Motor Exam: strength 5/5 throughout Psych Psych Narrative: Patient is agitated in 4-point restraints. Mood & Affect: anxious Results Medical Records Data Attestation: I reviewed the patient's medical records Lab / Micro Data Attestation: I reviewed the patient's lab results. Lab results narrative: [facility] Imaging Services [address] [place] [address] Gallbladder MR#: [id number] Acct: [id number] Name: RUI PANDA Rep #: [id number] : [id number] F [id number] From: John Chavez MD PCP: Dr. Bhupendra Oliveira MD Status: REG ER Study: Gallbladder Date of Exam: 08/13/23 Exam# [id number] Ordering Dr: Eleazar Brooks MD STUDY: ABDOMINAL ULTRASOUND - RIGHT UPPER QUADRANT REASON FOR VISIT: Female, 68 years old PAIN -- Elevated transaminases, alkaline phosphatase and b TECHNIQUE: Ultrasound evaluation of the right upper quadrant was performed with real-time and static urban-scale imaging. TECHNICAL QUALITY: Adequate. COMPARISON: None. FINDINGS: Liver: The liver measures 19.9 cm. There is diffusely increased echogenicity of the liver. The bile ducts are within normal limits. There is hepatic color flow. The direction of portal flow is hepatopetal. There is no demonstrated mass lesion. Gallbladder: Nonvisualized status post cholecystectomy. Common Bile Duct (C.B.D.): The common bile duct measures 22 mm. Pancreas: Limited visualization of pancreas due to bowel gas producing artifact.. No definitive evidence for acute pancreatitis or mass. There does appear to be mild dilatation of the pancreatic duct Right Kidney: Normal size of the right kidney. The right kidney measures 10.9 x 5.2 x 4.7 cm. Normal renal cortex.. Small cyst measuring 1.4 x 1 x 1 cm. There is no right hydronephrosis. US/Gallbladder IMPRESSION: Enlarged diffusely fatty infiltrated liver. Status post cholecystectomy. Marked dilatation of the distal common bile duct without definitive evidence for intraductal stone. There is limited visualization of the pancreas. CT or MRI/MRCP recommended for further evaluation of pancreas and etiology for ductal dilatation Electronically Signed: John Chavez MD at 17:53 EST Reading Location ID and State: [address] [place] [address] Tel , Service support , CC: Dr. Bhupendra Oliveira MD; Dr. Eleazar Brooks MD ~ [place] Attendant: Signed 08/14/23 03:20 08/14/23 03:20 Labs: Laboratory Results - last 24 hr 08/13/23 15:30: WBC 9.2, RBC 3.70 L, Hgb 11.3 L, Hct 36.6 L, MCV 98.9, MCH 30.5, MCHC 30.9 L, RDW Std Deviation 54.4 H, RDW Coeff of Aubrey 15.2 H, Plt Count 206, MPV 10.8, Immature Gran % (Auto) 0.500, Neut % (Auto) 84.7 H, Lymph % (Auto) 4.7 L, Emanuel % (Auto) 8.5, Eos % (Auto) 1.3, Baso % (Auto) 0.3, Absolute Neuts (auto) 7.8 H, Absolute Lymphs (auto) 0.43 L, Nucleated RBC % 0, Differential Comment SC ANNED, Sodium 136, Potassium 3.5, Chloride 104, Carbon Dioxide 30.0, Anion Gap 2 L, BUN 21 H, Creatinine 1.48 H, Estim Creat Clear Calc 27.45, Est GFR (MDRD) Af Amer 45 L, Est GFR (MDRD) Non-Af 37 L, BUN/Creatinine Ratio 14.2, Glucose 213 H, Lactic Acid 1.5, Calcium 8.3 L, Total Bilirubin 1.50 H, AST 149 H, ALT 164 H, Alkaline Phosphatase 141 H, Troponin I High Sens 13, Total Protein 7.7, Albumin 3.0 L, Globulin 4.7 H, Albumin/Globulin Ratio 0.6 L 08/13/23 16:20: Urine Color Yellow, Urine Clarity Sl. Cloudy, Urine pH 5.0, Ur Specific [place] 1.015, Urine Protein 30 H, Urine Glucose (UA) Normal, Urine Ketones Negative, Urine Occult Blood 25 H, Urine Nitrite Negative, Urine Bilirubin Negative, Urine Urobilinogen 4 H, Ur Leukocyte Esterase 100 H, Urine RBC 0 SEEN, Urine WBC 5-10 SEEN, Ur Squamous Epith Cells 0-5 SEEN, Urine Bacteria 3+, Urine Mucus 0 SEEN Imagaing Radiology Impression Chest X-Ray 08/13/23 16:04 IMPRESSION: ASHD. No acute cardiopulmonary pathology Electronically Signed: John Chavez MD at 16:24 EST , Gallbladder Ultrasound 08/13/23 16:34 IMPRESSION: Enlarged diffusely fatty infiltrated liver. Status post cholecystectomy. Marked dilatation of the distal common bile duct without definitive evidence for intraductal stone. There is limited visualization of the pancreas. CT or MRI/MRCP recommended for further evaluation of pancreas and etiology for ductal dilatation Electronically Signed: John Chavez MD at 17:53 EST , Assessment & Plan Assessment/Plan (1) Common bile duct dilatation: (2) Elevated transaminase level: (3) Complicated urinary tract infection: (4) Encephalopathy acute: PLAN: Plan 1. Suspected common bile duct stone with hypertransaminasemia complicated by UTI; without hematuria - Admit to ICU. Continue broad-spectrum antibiotics with IV Zosyn and await culture and sensitivity data. Check MRCP as per histopathology technician recommendation. Patient's ultrasound confirms previous cholecystectomy. Avoid Tylenol to prevent further potential hepatotoxicity. Minimize SEAT JOINER CHAINSTITCH active agents in light of #2. Finally, we will consult the histopathology technician on-call to see this patient on-rounds in the AM for further recommendations with help appreciated in advance. 2. Severe infectious encephalopathy in the setting of chronic depression requiring 4-point restraints and pink slip arising from #1 - Continue supportive care monitor for improvement. Check TSH. Check urine tox screen. Finally, patient will be started on a Precedex drip in the ICU if necessary to remove her 4-point restraints soon as possible. 3. Paroxysmal atrial fibrillation; with mild rapid ventricular response of 102 bpm present on admission complicating #1 and #2 - Resume home medications as previous with metoprolol but hold apixaban. Consider IV Cardizem if patient's heart rate sustains above 120 bpm and spite of her current treatment. 4. History of coronary artery disease; status post WA with subsequent stent (2003) plus recent in-stent stenosis (06/04/2023) - She denies chest pain at this time. Serialize troponin. We will wean off nitroglycerin drip as it is felt her pain is likely coming from her common bile duct stone rather than from a cardiac origin in this instance. Resume ranolazine as previous. Restart antiplatelet therapy as soon as okay with gastroenterology. 5. Essential hypertension - Continue home regimen plus give IV hydralazine as needed for systolic blood pressure greater than 160 mmHg. 6. Hyperlipidemia - Hold statin with elevated AST and ALT. Check lipid profile this admission. 7. Diabetes mellitus type 2; of unknown control - Keep n.p.o. for now. Give the lowest intensity sliding scale insulin with fingerstick blood sugars every 6 hours. Check hemoglobin A1c to objectively assess quality of diabetic control. 8. Obesity with a BMI of 38.4 this admission complicated by obstructive sleep apnea; noncompliant with CPAP - Weight loss will be recommended when patient is less confused. We will also encourage CPAP use. 9. History of tobacco abuse; subsequent COPD - Stable with no evidence of flare at this time. Continue as needed nebulizers. 10. Osteoarthritis; with chronic back pain and right shoulder pain exacerbated by 4-point restraints - Continue supportive care and remove restraints as soon as it is safely possible to do so. 11. DVT prophylaxis - SCD's only at this time with likely impending ERCP. We will also hold her aspirin and apixaban for this reason. Total time: Approximately 55 minutes. Charges/Coding Visit Charges Inpatient E&M: 36981 Init Hosp L2
--- NOTE | 2023-08-13 18:53 | ED.RN ---
WHILE PATIENT IS RESTRAINED, PT STATES YOU ALL ARE BITCHES AND I'M GONNA REGIS YOU. I HAVE NEVER BEEN TREATED LIKE THIS BEFORE. RN TRIED TO REDIRECT PATIENT BY ASKING HER IF SHE WOULD LIKE SOMETHING TO DRINK. PT STATES I CANT HAVE JUICE. YOU ALL ARE TRAMPS. RN STATED WE WILL NOT SPEAK TO STAFF THAT WAY. PT STATES I'M GOING TO KICK YOUR BRAINS IN. RN CONTINUES TO TELL PATIENT THAT IS NOT RESPECTFUL OR TOLERABLE ATTITUDE.
[2023-08-13 18:59] LABS: Troponin-I HS 15 pg/mL (3.0-54.0)
--- NOTE | 2023-08-13 19:07 | ED.RN ---
ATTEMPT TO CALL EMILIA, PATIENTS DAUGHTER. UNABLE TO GET A HOLD OF HER. ATTEMPT TO CALL MILY, ALSO UNABLE TO GET A HOLD OF HER AT THIS TIME.
--- NOTE | 2023-08-13 19:21 | ED.RN ---
PATIENTS DAUGHTER ENE CALLED AND UPDATED. NO FURTHER QUESTIONS. ENE STATES SHE WILL REACH OUT EMILIA AND SEBAS FOR AN UPDATE AT PATIENT
[2023-08-13] MEDS: Nitroglycerin Infusion 250 ML 3 MG CONT INF (19:33)
--- NOTE | 2023-08-13 19:58 | ED.RN ---
PATIENTS DAUGHTER IN LAW RUPALI CALLING FOR AN UPDATE ON PATIENT. RN INFORMED RUPALI HER NAME IS NOT IN PATIENTS CHART AND CANNOT GIVE OUT ANY INFORMATION. SHE MAY CONTACT ENE, FOR AN UPDATE. RUPALI STATES HER SON IS ALSO TRYING TO CALL HER AT THIS TIME. RN STATES SHE NEEDS TO TALK TO ENE. RUPALI STATES SHE WILL DO SO.
[2023-08-13 20:25] LABS: Amphetamine Urine VISTA NEGATIVE (<1000 ng/mL); Barbiturate Urine VISTA NEGATIVE (< 200 ng/mL); Benzodiazepine Urine VISTA NEGATIVE (< 200 ng/mL); Cocaine Urine VISTA NEGATIVE (< 300 ng/mL); Ecstacy Urine VISTA NEGATIVE (< 500 ng/mL); Methadone Urine VISTA NEGATIVE (< 300 ng/mL); PCP Urine VISTA NEGATIVE (< 25 ng/mL); THC Urine VISTA NEGATIVE (< 50 ng/mL); Vista UDS pH Range 5
[2023-08-13 20:32] LABS: Hemoglobin A1c 7.1 % (3.8-5.6)
[2023-08-13] MEDS: KCl 20MEQ in D5NS 20 MEQ/1,000 ML IV.SOLN. 125 MEQ IV (23:08)
[2023-08-13] MEDS: cycloBENZAPRine HCl 10 MG Tablet PO (23:08)
[2023-08-13] MEDS: Piperacil/Tazobactam 3.375 GM in 0.9% Normal Saline (50mL MB+) 50 ML IV (23:08)
[2023-08-13] MEDS: busPIRone 15 MG TABLET PO (23:09)
[2023-08-13] MEDS: Ranolazine 500 MG Tablet PO (23:09)
[2023-08-13] MEDS: Metoprolol Tartrate 50 MG Tablet 150 MG PO (23:09)
[2023-08-13] MEDS: Insulin Lispro 100 UNIT/ML INSULN.PEN SC (23:24)
[2023-08-13 23:39] LABS: Bedside Glucose 168 mg/dL (74-106)
[2023-08-14] VITALS (18 sets, daily range): BP systolic 88–131; BP diastolic 45–79; PULSE 64–101; RESP 17–23; TEMP 36.4–37.1; O2SAT 94–100; BMI 37.0
[2023-08-14 03:32] LABS: Absolute Lymphocyte Count 0.63 X10^3/uL (0.83-4.51); Absolute Neutrophil Count 4.5 X10^3/uL (2.0-7.7); Basophil# 0.02 X10^3/uL; Basophil% 0.3 % (0-1); Eosinophil# 0.17 X10^3/uL; Eosinophils% 2.8 % (0-5); Hematocrit 30.7 % (37-47); Hemoglobin 9.7 g/dL (12.0-15.0); Lymphocyte # 0.63 X10^3/ul (0.83-4.51); Lymphocyte % 10.4 % (19-41); Mean Corp Hgb Conc 31.6 g/dL (32-36); Mean Corpuscular Hgb 30.7 pg (27.0-32.0); Mean Corpuscular Volume 97.2 fL (81-99); Mean Platelet Vol. 10.3 fl (6.2-12.0); Monocyte# 0.74 X10^3/uL; Monocyte% 12.2 % (0-10); NRBC Flagged by Analyzer 0 % (0-5); Neutrophil # 4.46 X10^3/uL (2.7-7.7); Neutrophil % 73.8 % (47-70); Platelet Count 171 K/mm3 (150-450); RBC Distribution Width SD 53.6 fl (35.1-43.9); Red Blood Count 3.16 M/mm3 (4.2-5.4); White Blood Count 6.1 K/mm3 (4.4-11.0)
[2023-08-14 04:03] LABS: ALB/GLOB Ratio 0.7 RATIO (0.9-2.4); AST(SGOT) 65 U/L (15-37); Alanine Aminotransfer ALT/SGPT 103 U/L (13-56); Albumin, Serum 2.5 g/dL (3.2-5.0); Alkaline Phosphatase 101 U/L (45-117); Anion Gap 6 (5-15); BUN 18 mg/dL (7-18); BUN/Creat Ratio 14.5 RATIO (10-20); Calcium,Total 7.7 mg/dL (8.5-10.1); Chloride 107 mmol/L (98-107); Cholesterol 128 mg/dL (200); Creatinine, Serum 1.24 mg/dL (0.55-1.02); EST Glomerular Filtration Rate 46 mL/min (>60); Est Glom Filt Rate - Afr Amer 55 mL/min (>60); Estimated Creatinine Clearance 32.77 ml/min; Globulin 3.8 g/dL (2.2-4.2); Glucose 245 mg/dL (74-106); High Density Lipoprotein 45 mg/dL; Magnesium 2.1 mg/dL (1.6-2.6); Phosphorus 2.4 mg/dL (2.5-4.9); Potassium 3.4 mmol/L (3.5-5.1); Protein, Total 6.3 g/dL (6.4-8.2); Sodium Level 142 mmol/L (136-145); Thyroid Stim Hormone (TSH) 2.65 uIU/mL (0.358-3.74); Triglycerides 130 mg/dL; Troponin-I HS 14 pg/mL (3.0-54.0); Very Low Density Lipoprotein 26 mg/dL (5-40)
[2023-08-14] MEDS: Piperacil/Tazobactam 3.375 GM in 0.9% Normal Saline (50mL MB+) 50 ML IV ×3 (05:19→20:59)
[2023-08-14] MEDS: Insulin Lispro 100 UNIT/ML INSULN.PEN SC ×3 (05:20→17:11)
[2023-08-14] MEDS: busPIRone 5 MG Tablet 10 MG PO ×2 (05:21→13:41)
[2023-08-14] MEDS: Levothyroxine 100 MCG Tablet PO (05:21)
[2023-08-14 05:44] LABS: Bedside Glucose 171 mg/dL (74-106)
--- NOTE | 2023-08-14 07:28 | PN.HOSP_ITS ---
Reason for Visit Reason for Visit: Diagnoses Encephalopathy, unspecified (08/13/23) Other specified diseases of biliary tract (08/13/23) Urinary tract infection, site not specified (08/13/23) Elevation of levels of liver transaminase levels (08/13/23) Presence of coronary angioplasty implant and graft (08/13/23) Subjective Subjective Patient is a 68-year-old lady admitted with altered mental status. An assessment of acute encephalopathy secondary to infectious encephalopathy from cystitis made. Patient was also found to have elevated transaminases thought to be secondary to common bile duct stone. Admitted to the intensive care unit for further management Objective Data Objective Data Vital Signs: Vital Signs Temp Pulse Resp BP Pulse Ox O2 Del Method O2 Flow Rate 98.2 F 95 23 H 107/79 96 Nasal Cannula 2 08/14/23 04:00 08/14/23 07:00 08/14/23 07:00 08/14/23 07:00 08/14/23 07:16 08/14/23 07:16 08/14/23 07:16 Oxygen Flow Rate (L/min) 2 Oxygen Delivery Method Nasal Cannula Weight: 89.1 kg Body Mass Index (BMI) 37.0 Intake & Output: Intake and Output for Last 24 Hours 08/12/23 08/13/23 08/14/23 23:59 23:59 23:59 Intake Total 58.1 / 58.1 50 / 50 Output Total 250 / 250 Balance 58.1 / 58.1 -200 / -200 Lab / Micro Data 08/14/23 03:20 08/14/23 03:20 Labs: Laboratory Results - last 24 hr 08/13/23 15:30: WBC 9.2, RBC 3.70 L, Hgb 11.3 L, Hct 36.6 L, MCV 98.9, MCH 30.5, MCHC 30.9 L, RDW Std Deviation 54.4 H, RDW Coeff of Aubrey 15.2 H, Plt Count 206, MPV 10.8, Immature Gran % (Auto) 0.500, Neut % (Auto) 84.7 H, Lymph % (Auto) 4.7 L, [place] % (Auto) 8.5, Eos % (Auto) 1.3, Baso % (Auto) 0.3, Absolute Neuts (auto) 7.8 H, Absolute Lymphs (auto) 0.43 L, Nucleated RBC % 0, Differential Comment SC ANNED, Sodium 136, Potassium 3.5, Chloride 104, Carbon Dioxide 30.0, Anion Gap 2 L, BUN 21 H, Creatinine 1.48 H, Estim Creat Clear Calc 27.45, Est GFR (MDRD) Af Amer 45 L, Est GFR (MDRD) Non-Af 37 L, BUN/Creatinine Ratio 14.2, Glucose 213 H, Hemoglobin A1c 7.1 H, Lactic Acid 1.5, Calcium 8.3 L, Total Bilirubin 1.50 H, AST 149 H, ALT 164 H, Alkaline Phosphatase 141 H, Troponin I High Sens 13, Total Protein 7.7, Albumin 3.0 L, Globulin 4.7 H, Albumin/Globulin Ratio 0.6 L 08/13/23 16:20: Urine Color Yellow, Urine Clarity Sl. Cloudy, Urine pH 5.0, Ur Specific [place] 1.015, Urine Protein 30 H, Urine Glucose (UA) Normal, Urine Ketones Negative, Urine Occult Blood 25 H, Urine Nitrite Negative, Urine Bilirubin Negative, Urine Urobilinogen 4 H, Ur Leukocyte Esterase 100 H, Urine RBC 0 SEEN, Urine WBC 5-10 SEEN, Ur Squamous Epith Cells 0-5 SEEN, Urine Bacteria 3+, Urine Mucus 0 SEEN, Urine Opiates Screen NEGATIVE, Urine Methadone Screen NEGATIVE, Ur Barbiturates Screen NEGATIVE, Ur Phencyclidine Scrn NEGATIVE, Ur Amphetamines Screen NEGATIVE, MDMA (Ecstasy) Screen NEGATIVE, U Benzodiazepines Scrn NEGATIVE, Urine Cocaine Screen NEGATIVE, U Cannabinoids Screen NEGATIVE, Ur Drug Screen Comment 08/13/23 18:28: Troponin I High Sens 15 08/13/23 23:17: POC Glucose 168 H 08/14/23 03:20: WBC 6.1, RBC 3.16 L, Hgb 9.7 L, Hct 30.7 L, MCV 97.2, MCH 30.7, MCHC 31.6 L, RDW Std Deviation 53.6 H, RDW Coeff of Aubrey 15.0 H, Plt Count 171, MPV 10.3, Immature Gran % (Auto) 0.500, Neut % (Auto) 73.8 H, Lymph % (Auto) 10.4 L, [place] % (Auto) 12.2 H, Eos % (Auto) 2.8, Baso % (Auto) 0.3, Absolute Neuts (auto) 4.5, Absolute Lymphs (auto) 0.63 L, Nucleated RBC % 0, Sodium 142, Potassium 3.4 L, Chloride 107, Carbon Dioxide 29.0, Anion Gap 6, BUN 18, Creatinine 1.24 H, Estim Creat Clear Calc 32.77, Est GFR (MDRD) Af Amer 55 L, Est GFR (MDRD) Non-Af 46 L, BUN/Creatinine Ratio 14.5, Glucose 245 H, Calcium 7.7 L, Phosphorus 2.4 L, Magnesium 2.1, Total Bilirubin 0.90, AST 65 H, ALT 103 H, Alkaline Phosphatase 101, Troponin I High Sens 14, Total Protein 6.3 L, Albumin 2.5 L, Globulin 3.8, Albumin/Globulin Ratio 0.7 L, Triglycerides 130, Cholesterol 128, LDL Cholesterol 57, VLDL Cholesterol 26, HDL Cholesterol 45, TSH 2.65 08/14/23 05:18: POC Glucose 171 H Radiography Diagnostic Testing: Radiology Impression Chest X-Ray 08/13/23 16:04 IMPRESSION: ASHD. No acute cardiopulmonary pathology Electronically Signed: John Chavez MD at 16:24 EST , Gallbladder Ultrasound 08/13/23 16:34 IMPRESSION: Enlarged diffusely fatty infiltrated liver. Status post cholecystectomy. Marked dilatation of the distal common bile duct without definitive evidence for intraductal stone. There is limited visualization of the pancreas. CT or MRI/MRCP recommended for further evaluation of pancreas and etiology for ductal dilatation Electronically Signed: John Chavez MD at 17:53 EST , Physical Exam Narrative GENERAL: cooperative HEENT: Atraumatic; normocephalic EYES; Anicteric, Normal Conjunctiva NECK; supple, normal thyroid, RESPIRATORY: Diminished to auscultation CARDIOVASCULAR: Regular S1 S2, GI: soft, normoactive bowel sounds, : No Renal angle tenderness; EXTREMITIES: No edema, no clubbing, MUSCULOSKELETAL: no muscle wasting NEURO: Awake; no lateralizing signs. SKIN: No Rash PSYCH; Flat affect Assessment & Plan Assessment/Plan (1) Common bile duct dilatation: (2) Elevated transaminase level: (3) Complicated urinary tract infection: (4) Encephalopathy acute: PLAN: Plan Patient is a 68-year-old lady admitted with altered mental status. An assessment of acute encephalopathy secondary to infectious encephalopathy from cystitis made. Patient was also found to have elevated transaminases thought to be secondary to common bile duct stone. Admitted to the intensive care unit for further management 1. Acute metabolic encephalopathy ? Secondary to acute transaminitis and cystitis admitted initially to the ICU with plans to initiate Precedex drip patient did not require it. 2. Acute transaminitis ? Patient admitted to ICU as stated above MRCP ordered per recommendations from GI with consultation placed repeat labs ordered for a.m. 3. Acute cystitis ? Patient started on on Zosyn. Culture sent we will follow-up on result 4. Paroxysmal A-fib ? Patient had elevated rate on admission which has since improved 5. Coronary artery disease ? With previous PCI in 2003 in 2002 currently on guideline directed medical therapy 6. Hypertension - Blood pressure controlled, home medications continued with dose adjustment as needed 7. Dyslipidemia ? Patient statin therapy held in view of her elevated transaminases 8. Diabetes mellitus type II -patient's oral hypoglycemics held. Placed on long acting insulin, Accu-Cheks a.c. and at bedtime and covered with sliding scale insulin 9. Class II obesity with BMI of 37.8 ? Complicating care weight loss advised 10. Gout ? Patient's allopurinol continued 11. COPD ? Currently not in exacerbation 12. Osteoarthritis pain meds as needed 13. DVT prophylaxis ? SC heparin for now Time spent in the patient's overall evaluation,decision-making process, review of diagnostic data, adjustment of management, discussion with other providers, nursing nursing and ancillary staff involved in patient's care documentation, 50 Minutes Charges/Coding Visit Charges Inpatient E&M: 45533 [facility] Hosp L3
[2023-08-14] MEDS: DULoxetine Hcl 60 MG Capsule PO (08:59)
[2023-08-14] MEDS: Loratadine 10 MG Tablet PO (08:59)
[2023-08-14] MEDS: Allopurinol 100 MG Tablet PO (08:59)
[2023-08-14] MEDS: Furosemide 20 MG Tablet PO ×2 (09:00→17:11)
[2023-08-14] MEDS: Famotidine 20 MG Tablet PO (09:00)
[2023-08-14] MEDS: Ranolazine 500 MG Tablet PO ×2 (09:00→21:08)
[2023-08-14] MEDS: Cholecalciferol (VIT D3) 25 MCG TABLET (1,000 UNITS) 50 MCG PO (09:00)
[2023-08-14] MEDS: cycloBENZAPRine HCl 10 MG Tablet PO ×2 (09:00→21:06)
[2023-08-14] MEDS: amLODIPine 5 MG Tablet PO (09:08)
[2023-08-14] MEDS: Metoprolol Tartrate 50 MG Tablet 150 MG PO (09:08)
[2023-08-14] MEDS: KCl 20MEQ in D5NS 20 MEQ/1,000 ML IV.SOLN. 125 MEQ IV ×2 (10:43→18:43)
[2023-08-14] MEDS: Potassium Chloride Oral Tablet 20 MEQ 40 MEQ PO (10:44)
[2023-08-14] MEDS: Ferrous Sulfate 325 MG Tablet PO (10:45)
[2023-08-14] MEDS: Heparin Injection (Vial) 5,000 UNIT/ML VIAL 5000 UNIT SC ×2 (10:50→21:07)
[2023-08-14 11:59] LABS: Bedside Glucose 205 mg/dL (74-106)
--- NOTE | 2023-08-14 15:18 | NURSING ---
Report called to nurse Cerda for pt to be transferred to PCU.
[2023-08-14] MEDS: Ascorbic Acid 500 MG Tablet PO (17:11)
[2023-08-14 17:25] LABS: Bedside Glucose 258 mg/dL (74-106)
--- NOTE | 2023-08-14 18:35 | EX.PCM.CON.G ---
HPI Consult Data Date of Consult: 08/14/23 HPI Narrative Reason for Consultation: Possible choledocholithiasis HPI Narrative: RUI PANDA, is a 68 F who presents right upper quadrant pain and confusion. She has a a past medical history of hypertension, hyperlipidemia, hypothyroidism, DM-2; of unknown control, obesity; with a BMI of 38.4 this admission, PARESH; noncompliant with CPAP, history of Paroxysmal Atrial Fibrillation; on Apixaban, history of CAD; s/p DC and stent (2003) and recent in-stent stenosis (06/04/2023), history of CHF, history of DVT/PE, history of cholecystectomy, history of cervical cancer, CKD; stage III, OA; with chronic back pain, chronic anemia, RLS, GERD, history of UTI and depression. She presented to [facility] ER complaining of chest pain, RUQ pain, confusion and agitation. Almost all of history is obtained from the chart and patient's family due to her auto mental status. According to the records her symptoms began approximately 1 day prior to admission with patient complaining of headache and right upper quadrant pain with obvious confusion. The patient's daughter reported to the ER staff that she had cough and shortness of breath with the patient adding that she was nauseous and was having more frequent stools. In the ER she was diagnosed with a suspected common bile duct stone on gallbladder ultrasound with an AST of 149, ALT of 164 and alkaline phosphatase of 141 with an elevated total bilirubin of 1.5 mg/dL present on admission along with a UA that is positive for acute cystitis; This was complicated by severe infectious encephalopathy requiring 4 point restraints and she was then admitted to the ICU per protocol due to behavior management issues for status expected to be greater than 48 hours. [facility] Medical History Anemia Anxiety Anxiety Arthritis Atherosclerotic heart disease of [place] coronary artery without angina pectoris Back pain Broken rib Cancer Cardiology follow-up encounter Chronic kidney disease (CKD) stage G3b/A1, moderately decreased glomerular filtration rate (GFR) between 30-44 mL/min/1.73 square meter and albuminuria creatinine ratio less than 30 mg/g Chronic respiratory insufficiency Closed intertrochanteric fracture of left femur COPD (chronic obstructive pulmonary disease) DDD (degenerative disc disease) Diabetes Diabetes mellitus type 2 in obese Diabetic neuropathy Difficulty swallowing DVT (deep venous thrombosis) Essential hypertension Excessive bleeding Fall at home Former smoker Gastric reflux Gastroparesis Gastroparesis GERD (gastroesophageal reflux disease) High cholesterol History of cervical cancer History of CHF (congestive heart failure) History of diverticulitis History of DVT (deep vein thrombosis) History of edema History of heart attack History of Holter monitoring History of IBS History of renal disease History of stress test Hypothyroidism Injury of back Insulin dependent diabetes mellitus Lung nodule Migraine headache Mixed hyperlipidemia On home oxygen therapy PARESH (obstructive sleep apnea) Paroxysmal A-fib Paroxysmal atrial fibrillation Post-menopausal Presence of stent in coronary artery (~12/07/03) Pulmonary embolism Pulmonary embolism Pulmonary hypertension RLS (restless legs syndrome) Sleep apnea Thyroid disease Tinnitus Uses wheelchair Walker as ambulation aid Wears dentures Wears glasses Wears hearing aid Home Medications atorvastatin 40 mg tablet 40 mg PO QHS CHOLESTEROL LOWERING 02/03/18 [History Last Taken 06/03/23] levothyroxine 100 mcg tablet 100 mcg PO DAILY THYROID 02/03/18 [History Last Taken 06/03/23] ascorbic acid (vitamin C) 500 mg tablet 500 mg PO DAILY@1700 supplement 05/17/18 [History Last Taken 06/03/23] potassium chloride 10 mEq tablet,extended release 10 meq PO DAILY supplement 06/08/19 [History Last Taken 06/03/23] allopurinol 100 mg tablet 100 mg PO DAILY gout 08/11/19 [History Last Taken 06/03/23] furosemide 20 mg tablet 20 mg PO BID FLUID 10/25/20 [History Last Taken 06/03/23] cholecalciferol (vitamin D3) 50 mcg (2,000 unit) capsule 2,000 unit PO DAILY SUPPLEMENT 12/13/20 [History Last Taken 06/02/23] buspirone 10 mg tablet 10 mg PO BID depression 06/12/22 [History Last Taken 06/03/23] duloxetine 60 mg capsule,delayed release 60 mg PO DAILY MENTAL HEALTH 06/12/22 [History Last Taken 06/03/23] fexofenadine 180 mg tablet 180 mg PO DAILY ALLERGIES 06/12/22 [History Last Taken 06/03/23] insulin glargine 100 unit/mL (3 mL) subcutaneous pen (Lantus Solostar U-100 Insulin) 60 unit subcut BID DM 06/12/22 [History Last Taken 06/03/23] insulin lispro 100 unit/mL subcutaneous pen 14 unit subcut BREAKFAST DIABETES 06/12/22 [History Last Taken 06/03/23] insulin lispro 100 unit/mL subcutaneous pen 14 unit subcut LUNCH DIABETES 06/12/22 [History Last Taken 06/02/23] insulin lispro 100 unit/mL subcutaneous pen 24 unit subcut DINNER DIABETES 06/12/22 [History Last Taken 06/02/23] sodium chloride 0.65 % nasal spray aerosol (Saline Mist) 2 spray intranasal TID PRN ALLERGIES 06/12/22 [History Last Taken 06/03/23] nitroglycerin 0.4 mg sublingual tablet 0.4 mg sublingual Q5-15M PRN chest pain #25 tabs 10/21/22 [Rx Last Taken 12/17/22] albuterol sulfate 90 mcg/actuation aerosol inhaler 2 puff inhalation PRN PRN COPD 12/12/22 [History Last Taken 12/17/22] amlodipine 5 mg tablet 5 mg PO DAILY BP 12/12/22 [History Last Taken 06/03/23] ferrous sulfate 325 mg (65 mg iron) tablet 325 mg PO DAILY SUPPLEMENT 12/12/22 [History Last Taken 06/03/23] alendronate 70 mg tablet 70 mg PO TU BONES 06/03/23 [History Last Taken 06/03/23] buspirone 10 mg tablet 15 mg PO QHS 06/03/23 [History Last Taken 06/02/23] nystatin 100,000 unit/gram topical powder (Nyamyc) 1 applic topical TID PRN SKIN 06/03/23 [History Last Taken Unknown] triamcinolone acetonide 0.1 % topical cream 1 applic topical DAILY PRN SKIN 06/03/23 [History Last Taken 06/01/23] ranolazine 500 mg tablet,extended release,12 hr 500 mg PO BID #60 tabs 07/02/23 [Rx Last Taken Unknown] isosorbide mononitrate 120 mg tablet,extended release 24 hr 120 mg PO DAILY HEART #30 tabs 07/30/23 [Rx Last Taken Unknown] apixaban 5 mg tablet (Eliquis) 5 mg PO BID #60 tabs 08/12/23 [Rx Last Taken Unknown] clopidogrel 75 mg tablet 75 mg PO DAILY Pt told me today she ran out 4 days ago! #30 tabs 08/12/23 [Rx Last Taken Unknown] famotidine 20 mg tablet 20 mg PO DAILY #30 tabs 08/12/23 [Rx Last Taken Unknown] aspirin 81 mg tablet,delayed release 81 mg PO DAILY 08/13/23 [History Last Taken Unknown] cyclobenzaprine 10 mg tablet 10 mg PO BID 08/13/23 [History Last Taken Unknown] metoprolol tartrate 100 mg tablet 150 mg PO BID Heart Rate 08/13/23 [History Last Taken Unknown] oxycodone 5 mg tablet 5 mg PO Q8H 08/13/23 [History Last Taken Unknown] Allergy/AdvReac Type Severity Reaction Status Date / Time metoclopramide [From Reglan] Allergy Intermediate Itching Verified 08/13/23 14:50 ciprofloxacin [From Cipro] Allergy Hives Verified 08/13/23 14:50 latex Allergy matos me Verified 08/13/23 14:50 niacin Allergy Hives Verified 08/13/23 14:50 [From Niaspan Extended-Release] ranolazine [From Ranexa] Allergy Itching Verified 08/13/23 14:50 orphenadrine AdvReac Mild PT UNABLE Verified 08/13/23 15:19 TO RESPOND-NEEDS F/U adhesive tape AdvReac Other Verified 08/13/23 14:50 orphenadrine citrate AdvReac groggy Verified 08/13/23 14:50 [From Norgesic] Family History Mother CAD (coronary artery disease) Father CAD (coronary artery disease) Brother CAD (coronary artery disease) Asthma Sister Hypertension Sister Diabetes Sister Heart disease Surgical History History of cardiac catheterization History of cholecystectomy History of coronary artery stent placement (06/04/23) History of hernia repair History of knee surgery History of left heart catheterization (LHC) (~09/28/19) History of nasal surgery History of surgery on wrist History of total abdominal hysterectomy History of tubal ligation Hx of surgical procedure Presence of coronary angioplasty implant and graft (~12/07/03) Social History Smoking Status: Former smoker alcohol intake: never substance use type: does not use caffeine: Yes Type: coffee Number of servings: 1 ROS ROS Narrative Full review of systems was not possible at this time due to patient's severe infectious encephalopathy. Review of Systems ROS Unobtainable: due to encephalopathy Physical Exam Narrative GENERAL: cooperative HEENT: Atraumatic; normocephalic EYES; Anicteric, Normal Conjunctiva NECK; supple, normal thyroid, RESPIRATORY: Diminished to auscultation CARDIOVASCULAR: Regular S1 S2, GI: soft, normoactive bowel sounds, : No Renal angle tenderness; EXTREMITIES: No edema, no clubbing, MUSCULOSKELETAL: no muscle wasting NEURO: Awake; no lateralizing signs. SKIN: No Rash PSYCH; Flat affect Lab / Micro Data 08/14/23 03:20 08/14/23 03:20 Labs: Laboratory Results - last 24 hr 08/13/23 15:30: Hemoglobin A1c 7.1 H 08/13/23 16:20: Urine Opiates Screen NEGATIVE, Urine Methadone Screen NEGATIVE, Ur Barbiturates Screen NEGATIVE, Ur Phencyclidine Scrn NEGATIVE, Ur Amphetamines Screen NEGATIVE, MDMA (Ecstasy) Screen NEGATIVE, U Benzodiazepines Scrn NEGATIVE, Urine Cocaine Screen NEGATIVE, U Cannabinoids Screen NEGATIVE, Ur Drug Screen Comment 08/13/23 18:28: Troponin I High Sens 15 08/13/23 23:17: POC Glucose 168 H 08/14/23 03:20: WBC 6.1, RBC 3.16 L, Hgb 9.7 L, Hct 30.7 L, MCV 97.2, MCH 30.7, MCHC 31.6 L, RDW Std Deviation 53.6 H, RDW Coeff of Aubrey 15.0 H, Plt Count 171, MPV 10.3, Immature Gran % (Auto) 0.500, Neut % (Auto) 73.8 H, Lymph % (Auto) 10.4 L, [place] % (Auto) 12.2 H, Eos % (Auto) 2.8, Baso % (Auto) 0.3, Absolute Neuts (auto) 4.5, Absolute Lymphs (auto) 0.63 L, Nucleated RBC % 0, Sodium 142, Potassium 3.4 L, Chloride 107, Carbon Dioxide 29.0, Anion Gap 6, BUN 18, Creatinine 1.24 H, Estim Creat Clear Calc 32.77, Est GFR (MDRD) Af Amer 55 L, Est GFR (MDRD) Non-Af 46 L, BUN/Creatinine Ratio 14.5, Glucose 245 H, Calcium 7.7 L, Phosphorus 2.4 L, Magnesium 2.1, Total Bilirubin 0.90, AST 65 H, ALT 103 H, Alkaline Phosphatase 101, Troponin I High Sens 14, Total Protein 6.3 L, Albumin 2.5 L, Globulin 3.8, Albumin/Globulin Ratio 0.7 L, Triglycerides 130, Cholesterol 128, LDL Cholesterol 57, VLDL Cholesterol 26, HDL Cholesterol 45, TSH 2.65 08/14/23 05:18: POC Glucose 171 H 08/14/23 06:30: Ammonia 38.0 H 08/14/23 11:40: POC Glucose 205 H 08/14/23 17:01: POC Glucose 258 H Micro: Microbiology 08/13/23 16:20 Urine Catheter - Catheter 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 Continue broad-spectrum antibiotics with IV Zosyn and await culture and sensitivity data. Recommend MRCP and possible ERCP... Restart antiplatelet therapy if patient is not going to have an endoscopic procedure. Charges/Coding Visit Charges Inpatient E&M: 19159 Init Hosp L3
[2023-08-14] MEDS: guaiFENesin 600 MG Tablet PO (21:06)
[2023-08-14] MEDS: busPIRone 15 MG TABLET PO (21:07)
[2023-08-14] MEDS: Metoprolol Tartrate 50 MG Tablet PO (21:19)
[2023-08-15] VITALS (9 sets, daily range): BP systolic 110–129; BP diastolic 67–90; PULSE 72–137; RESP 14–22; TEMP 36.6–37.1; O2SAT 96–100; BMI 37.4
[2023-08-15] MEDS: Insulin Lispro 100 UNIT/ML INSULN.PEN SC ×4 (00:22→17:10)
[2023-08-15 00:47] LABS: Bedside Glucose 323 mg/dL (74-106)
[2023-08-15] MEDS: Albuterol 2.5 MG/3 ML VIAL.NEB. INHALATION (02:26)
[2023-08-15] MEDS: KCl 20MEQ in D5NS 20 MEQ/1,000 ML IV.SOLN. 125 MEQ IV (03:52)
[2023-08-15] MEDS: Piperacil/Tazobactam 3.375 GM in 0.9% Normal Saline (50mL MB+) 50 ML IV (05:34)
[2023-08-15] MEDS: Metoprolol(XL)Succ 50 MG Tablet PO (05:37)
[2023-08-15] MEDS: busPIRone 5 MG Tablet 10 MG PO ×2 (05:41→13:47)
[2023-08-15] MEDS: Levothyroxine 100 MCG Tablet PO (05:41)
[2023-08-15 05:50] LABS: Absolute Lymphocyte Count 0.68 X10^3/uL (0.83-4.51); Absolute Neutrophil Count 4.1 X10^3/uL (2.0-7.7); Basophil# 0.03 X10^3/uL; Basophil% 0.5 % (0-1); Eosinophils% 5.2 % (0-5); Hematocrit 34.5 % (37-47); Hemoglobin 10.5 g/dL (12.0-15.0); Lymphocyte # 0.68 X10^3/ul (0.83-4.51); Lymphocyte % 11.9 % (19-41); Mean Corp Hgb Conc 30.4 g/dL (32-36); Mean Corpuscular Hgb 30.4 pg (27.0-32.0); Mean Platelet Vol. 10.6 fl (6.2-12.0); Monocyte# 0.62 X10^3/uL; Monocyte% 10.8 % (0-10); NRBC Flagged by Analyzer 0 % (0-5); Neutrophil # 4.05 X10^3/uL (2.7-7.7); Neutrophil % 70.9 % (47-70); Platelet Count 181 K/mm3 (150-450); RBC Distribution Width CV 15.1 % (11.6-14.6); RBC Distribution Width SD 54.4 fl (35.1-43.9); Red Blood Count 3.45 M/mm3 (4.2-5.4); White Blood Count 5.7 K/mm3 (4.4-11.0)
[2023-08-15 06:08] LABS: Bedside Glucose 364 mg/dL (74-106)
[2023-08-15 06:41] LABS: AST(SGOT) 29 U/L (15-37); Alanine Aminotransfer ALT/SGPT 79 U/L (13-56); Albumin, Serum 2.6 g/dL (3.2-5.0); Alkaline Phosphatase 96 U/L (45-117); Anion Gap 5 (5-15); BUN 16 mg/dL (7-18); BUN/Creat Ratio 9.7 RATIO (10-20); Bilirubin, Direct 0.28 mg/dL (0.00-0.30); Calcium,Total 8.1 mg/dL (8.5-10.1); Chloride 109 mmol/L (98-107); Creatinine, Serum 1.65 mg/dL (0.55-1.02); EST Glomerular Filtration Rate 33 mL/min (>60); Est Glom Filt Rate - Afr Amer 40 mL/min (>60); Estimated Creatinine Clearance 24.62 ml/min; Globulin 4.5 g/dL (2.2-4.2); Glucose 371 mg/dL (74-106); Magnesium 2.4 mg/dL (1.6-2.6); Phosphorus 2.3 mg/dL (2.5-4.9); Potassium 4.1 mmol/L (3.5-5.1); Protein, Total 7.1 g/dL (6.4-8.2); Sodium Level 140 mmol/L (136-145)
--- NOTE | 2023-08-15 07:38 | PN.HOSP_ITS ---
Reason for Visit Reason for Visit: Diagnoses Encephalopathy, unspecified (08/13/23) Other specified diseases of biliary tract (08/13/23) Urinary tract infection, site not specified (08/13/23) Elevation of levels of liver transaminase levels (08/13/23) Presence of coronary angioplasty implant and graft (08/13/23) Subjective Subjective Patient was transferred from the ICU to progressive care unit. Urine culture so far positive ESBL Escherichia coli Objective Data Objective Data Vital Signs: Vital Signs Temp Pulse Resp BP Pulse Ox O2 Del Method O2 Flow Rate 98 F 137 H 22 H 110/90 H 98 Nasal Cannula 1 08/15/23 00:25 08/15/23 05:37 08/15/23 02:27 08/15/23 05:37 08/15/23 00:25 08/15/23 00:27 08/15/23 00:27 Oxygen Flow Rate (L/min) 1 Oxygen Delivery Method Nasal Cannula Weight: 89.9 kg Body Mass Index (BMI) 37.4 Intake & Output: Intake and Output for Last 24 Hours 08/13/23 08/14/23 08/15/23 23:59 23:59 23:59 Intake Total 58.1 / 58.1 2860 / 2860 1425 / 1425 Output Total 640 / 640 1300 / 1300 Balance 58.1 / 58.1 2220 / 2220 125 / 125 Lab / Micro Data 08/15/23 05:25 08/15/23 05:25 Labs: Laboratory Results - last 24 hr 08/14/23 06:30: Ammonia 38.0 H 08/14/23 11:40: POC Glucose 205 H 08/14/23 17:01: POC Glucose 258 H 08/15/23 00:20: POC Glucose 323 H 08/15/23 05:25: WBC 5.7, RBC 3.45 L, Hgb 10.5 L, Hct 34.5 L, MCV 100.0 H, MCH 30.4, MCHC 30.4 L, RDW Std Deviation 54.4 H, RDW Coeff of Aubrey 15.1 H, Plt Count 181, MPV 10.6, Immature Gran % (Auto) 0.700, Neut % (Auto) 70.9 H, Lymph % (Auto) 11.9 L, Iron % (Auto) 10.8 H, Eos % (Auto) 5.2 H, Baso % (Auto) 0.5, Absolute Neuts (auto) 4.1, Absolute Lymphs (auto) 0.68 L, Nucleated RBC % 0, Sodium 140, Potassium 4.1, Chloride 109 H, Carbon Dioxide 26.0, Anion Gap 5, BUN 16, Creatinine 1.65 H, Estim Creat Clear Calc 24.62, Est GFR (MDRD) Af Amer 40 L , Est GFR (MDRD) Non-Af 33 L, BUN/Creatinine Ratio 9.7 L, Glucose 371 H, Calcium 8.1 L, Phosphorus 2.3 L, Magnesium 2.4, Total Bilirubin 0.70, Direct Bilirubin 0.28, AST 29, ALT 79 H, Alkaline Phosphatase 96, Total Protein 7.1, Albumin 2.6 L, Globulin 4.5 H 08/15/23 05:36: POC Glucose 364 H Micro: Microbiology 08/13/23 16:20 Urine Catheter - Catheter Urine 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 SKIN: No Rash PSYCH; Flat affect Assessment & Plan Assessment/Plan (1) Common bile duct dilatation: (2) Elevated transaminase level: (3) Complicated urinary tract infection: (4) Encephalopathy acute: PLAN: Plan Patient is a 68-year-old lady admitted with altered mental status. An asses sment of acute encephalopathy secondary to infectious encephalopathy from cystitis made. Patient was also found to have elevated transaminases thought to be secondary to common bile duct stone. Admitted to the intensive care unit for further management 1. Acute metabolic encephalopathy ? Secondary to acute transaminitis and cystitis admitted initially to the ICU with plans to initiate Precedex drip patient did not require it. ? 08/15/2023; patient transferred from ICU to progressive care unit. 2. Acute transaminitis ? Patient admitted to ICU as stated above MRCP ordered per recommendations from GI with consultation placed repeat labs ordered for a.m. ? 08/15/2023; patient seen in consultation by Dr. Lewis with GI his notes and recommendations including MRCP and possible ERCP noted. 3. Acute cystitis ? Patient started on on Zosyn. Culture sent we will follow-up on result - Patient was transferred from the ICU to progressive care unit. Urine culture so far positive ESBL Escherichia coli. Consult placed to ID 4. Paroxysmal A-fib ? Patient had elevated rate on admission which has since improved 5. Coronary artery disease ? With previous PCI in 2003 in 2002 currently on guideline directed medical therapy 6. Hypertension - Blood pressure controlled, home medications continued with dose adjustment as needed 7. Dyslipidemia ? Patient statin therapy held in view of her elevated transaminases 8. Diabetes mellitus type II -patient's oral hypoglycemics held. Placed on long acting insulin, Accu-Cheks a.c. and at bedtime and covered with sliding scale insulin ? 08/15/2023 patient blood glucose markedly elevated in view of patient being on dextrose which has since been discontinued adjusted insulin regimen 9. Class II obesity with BMI of 37.8 ? Complicating care weight loss advised 10. Gout ? Patient's allopurinol continued 11. COPD ? Currently not in exacerbation 12. Osteoarthritis pain meds as needed 13. Anemia - Secondary to chronic disorder monitoring H&H and transfuse if patient becomes symptomatic or hemoglobin falls below 7 14. DVT prophylaxis ? SC heparin for now Time spent in the patient's overall evaluation,decision-making process, review of diagnostic data, adjustment of management, discussion with other providers, nursing nursing and ancillary staff involved in patient's care documentation, 50 Minutes Charges/Coding Visit Charges Inpatient E&M: [address] [facility] Hosp L3
--- NOTE | 2023-08-15 09:00 | MRI_ITS ---
EXAM: MR ABDOMEN WITHOUT INTRAVENOUS CONTRAST, MRCP PROTOCOL CLINICAL INDICATION: Pain, elevated liver enzymes TECHNIQUE: Multiplanar and multisequence MR images of the abdomen without intravenous contrast obtained with MRCP sequence. Three-dimensional post-processing reconstructions were performed. This report was created using PageSt[employer] report generation technology. COMPARISON: Ultrasound 08/13/2023. FINDINGS: LOWER THORAX: Unremarkable. No pleural effusion. LIVER: No hepatic masses. GALLBLADDER AND BILE DUCTS: Extrahepatic more than intrahepatic bile duct dilation with common duct measuring up to 18 mm. Filling defect in the lower common duct just above the ampulla measures 9.2 mm. Gallbladder is absent. PANCREAS: Unremarkable. No focal cystic mass. No pancreatic duct dilation. SPLEEN: Unremarkable. Non-enlarged. ADRENALS: Unremarkable. No nodules. KIDNEYS AND URETERS: Well-defined T2 bright simple renal cysts bilaterally. No required imaging follow-up needed given high likelihood of benign nature. Normal renal size and position. No hydronephrosis. INTRAPERITONEAL SPACE: Unremarkable. No ascites or other fluid collection. VASCULATURE: Unremarkable. Abdominal aorta is non-dilated. LYMPH NODES: No enlarged lymph nodes. MRI/MRCP Abdomen without Contrast IMPRESSION: Choledocholithiasis with moderate biliary dilation. Electronically Signed: Brandon Damon MD (Brooks) at 11:31 EST Reading Location ID and State: / [place] , Service support ,
[2023-08-15] MEDS: Ondansetron 4 MG/2 ML Vial IV (10:01)
[2023-08-15] MEDS: Metoprolol Tartrate 50 MG Tablet PO ×2 (11:04→22:33)
[2023-08-15] MEDS: Heparin Injection (Vial) 5,000 UNIT/ML VIAL 5000 UNIT SC ×2 (11:05→22:38)
[2023-08-15] MEDS: Famotidine 20 MG Tablet PO (11:05)
[2023-08-15] MEDS: guaiFENesin 600 MG Tablet PO ×2 (11:05→22:32)
[2023-08-15] MEDS: Cholecalciferol (VIT D3) 25 MCG TABLET (1,000 UNITS) 50 MCG PO (11:06)
[2023-08-15] MEDS: Ranolazine 500 MG Tablet PO ×2 (11:06→22:32)
[2023-08-15] MEDS: Ferrous Sulfate 325 MG Tablet PO (11:06)
[2023-08-15] MEDS: cycloBENZAPRine HCl 10 MG Tablet PO ×2 (11:07→22:30)
[2023-08-15] MEDS: Furosemide 20 MG Tablet PO ×2 (11:09→17:12)
[2023-08-15] MEDS: Allopurinol 100 MG Tablet PO (11:10)
[2023-08-15] MEDS: DULoxetine Hcl 60 MG Capsule PO (11:11)
[2023-08-15] MEDS: Insulin Glargine-YFGN 100 UNIT/ML Pen 60 UNIT SC ×2 (11:32→22:38)
[2023-08-15] MEDS: Insulin Lispro 100 UNIT/ML INSULN.PEN 14 UNIT SC (11:34)
[2023-08-15 12:18] LABS: Bedside Glucose 277 mg/dL (74-106)
[2023-08-15] MEDS: Meropenem 1 GM in 0.9% Normal Saline (100mL MB+) 100 ML IV ×2 (13:48→22:54)
--- NOTE | 2023-08-15 14:38 | CON.PCM.ID_ITS ---
Assessment & Plan Assessment/Plan (1) Complicated urinary tract infection: PLAN: Ucx with esbl ecoli uti. MRCP shows bile duct dilation, may need ERCP, GI following. Will change zosyn to naila. Will follow, thank you (2) Encephalopathy acute: (3) Common bile duct dilatation: HPI Consult Data Date of Consult: 08/15/23 HPI Narrative Reason for Consultation: uti HPI Narrative: RUI PANDA, is a 68 F with h/o DM, obesity, PARESH, CAD, prior cholecystectomy, presented with confusion, upper abd/chest pain, nausea, headache. Admitted on zosyn, feeling better, but abd and chest still hurt. No dysuria, some increased frequency as an outpt. Full ROS performed and neg except as noted above. [facility] Medical History Anemia Anxiety Anxiety Arthritis Atherosclerotic heart disease of [place] coronary artery without angina pectoris Back pain Broken rib Cancer Cardiology follow-up encounter Chronic kidney disease (CKD) stage G3b/A1, moderately decreased glomerular filtration rate (GFR) between 30-44 mL/min/1.73 square meter and albuminuria creatinine ratio less than 30 mg/g Chronic respiratory insufficiency Closed intertrochanteric fracture of left femur COPD (chronic obstructive pulmonary disease) DDD (degenerative disc disease) Diabetes Diabetes mellitus type 2 in obese Diabetic neuropathy Difficulty swallowing DVT (deep venous thrombosis) Essential hypertension Excessive bleeding Fall at home Former smoker Gastric reflux Gastroparesis Gastroparesis GERD (gastroesophageal reflux disease) High cholesterol History of cervical cancer History of CHF (congestive heart failure) History of diverticulitis History of DVT (deep vein thrombosis) History of edema History of heart attack History of Holter monitoring History of IBS History of renal disease History of stress test Hypothyroidism Injury of back Insulin dependent diabetes mellitus Lung nodule Migraine headache Mixed hyperlipidemia On home oxygen therapy PARESH (obstructive sleep apnea) Paroxysmal A-fib Paroxysmal atrial fibrillation Post-menopausal Presence of stent in coronary artery (~12/07/03) Pulmonary embolism Pulmonary embolism Pulmonary hypertension RLS (restless legs syndrome) Sleep apnea Thyroid disease Tinnitus Uses wheelchair Walker as ambulation aid Wears dentures Wears glasses Wears hearing aid Home Medications atorvastatin 40 mg tablet 40 mg PO QHS CHOLESTEROL LOWERING 02/03/18 [History Last Taken 06/03/23] levothyroxine 100 mcg tablet 100 mcg PO DAILY THYROID 02/03/18 [History Last Taken 06/03/23] ascorbic acid (vitamin C) 500 mg tablet 500 mg PO DAILY@1700 supplement 05/17/18 [History Last Taken 06/03/23] potassium chloride 10 mEq tablet,extended release 10 meq PO DAILY supplement 06/08/19 [History Last Taken 06/03/23] allopurinol 100 mg tablet 100 mg PO DAILY gout 08/11/19 [History Last Taken 06/03/23] furosemide 20 mg tablet 20 mg PO BID FLUID 10/25/20 [History Last Taken 06/03/23] cholecalciferol (vitamin D3) 50 mcg (2,000 unit) capsule 2,000 unit PO DAILY SUPPLEMENT 12/13/20 [History Last Taken 06/02/23] buspirone 10 mg tablet 10 mg PO BID depression 06/12/22 [History Last Taken 06/03/23] duloxetine 60 mg capsule,delayed release 60 mg PO DAILY MENTAL HEALTH 06/12/22 [History Last Taken 06/03/23] fexofenadine 180 mg tablet 180 mg PO DAILY ALLERGIES 06/12/22 [History Last Taken 06/03/23] insulin glargine 100 unit/mL (3 mL) subcutaneous pen (Lantus Solostar U-100 Insulin) 60 unit subcut BID DM 06/12/22 [History Last Taken 06/03/23] insulin lispro 100 unit/mL subcutaneous pen 14 unit subcut BREAKFAST DIABETES 06/12/22 [History Last Taken 06/03/23] insulin lispro 100 unit/mL subcutaneous pen 14 unit subcut LUNCH DIABETES 06/12/22 [History Last Taken 06/02/23] insulin lispro 100 unit/mL subcutaneous pen 24 unit subcut DINNER DIABETES 06/12/22 [History Last Taken 06/02/23] sodium chloride 0.65 % nasal spray aerosol (Saline Mist) 2 spray intranasal TID PRN ALLERGIES 06/12/22 [History Last Taken 06/03/23] nitroglycerin 0.4 mg sublingual tablet 0.4 mg sublingual Q5-15M PRN chest pain #25 tabs 10/21/22 [Rx Last Taken 12/17/22] albuterol sulfate 90 mcg/actuation aerosol inhaler 2 puff inhalation PRN PRN COPD 12/12/22 [History Last Taken 12/17/22] amlodipine 5 mg tablet 5 mg PO DAILY BP 12/12/22 [History Last Taken 06/03/23] ferrous sulfate 325 mg (65 mg iron) tablet 325 mg PO DAILY SUPPLEMENT 12/12/22 [History Last Taken 06/03/23] alendronate 70 mg tablet 70 mg PO TU BONES 06/03/23 [History Last Taken 06/03/23] buspirone 10 mg tablet 15 mg PO QHS 06/03/23 [History Last Taken 06/02/23] nystatin 100,000 unit/gram topical powder (Nyamyc) 1 applic topical TID PRN SKIN 06/03/23 [History Last Taken Unknown] triamcinolone acetonide 0.1 % topical cream 1 applic topical DAILY PRN SKIN 06/03/23 [History Last Taken 06/01/23] ranolazine 500 mg tablet,extended release,12 hr 500 mg PO BID #60 tabs 07/02/23 [Rx Last Taken Unknown] isosorbide mononitrate 120 mg tablet,extended release 24 hr 120 mg PO DAILY HEART #30 tabs 07/30/23 [Rx Last Taken Unknown] apixaban 5 mg tablet (Eliquis) 5 mg PO BID #60 tabs 08/12/23 [Rx Last Taken Unknown] clopidogrel 75 mg tablet 75 mg PO DAILY Pt told me today she ran out 4 days ago! #30 tabs 08/12/23 [Rx Last Taken Unknown] famotidine 20 mg tablet 20 mg PO DAILY #30 tabs 08/12/23 [Rx Last Taken Unknown] aspirin 81 mg tablet,delayed release 81 mg PO DAILY 08/13/23 [History Last Taken Unknown] cyclobenzaprine 10 mg tablet 10 mg PO BID 08/13/23 [History Last Taken Unknown] metoprolol tartrate 100 mg tablet 150 mg PO BID Heart Rate 08/13/23 [History Last Taken Unknown] oxycodone 5 mg tablet 5 mg PO Q8H 08/13/23 [History Last Taken Unknown] Allergy/AdvReac Type Severity Reaction Status Date / Time metoclopramide [From Reglan] Allergy Intermediate Itching Verified 08/13/23 14:50 ciprofloxacin [From Cipro] Allergy Hives Verified 08/13/23 14:50 latex Allergy matos me Verified 08/13/23 14:50 niacin Allergy Hives Verified 08/13/23 14:50 [From Niaspan Extended-Release] ranolazine [From Ranexa] Allergy Itching Verified 08/13/23 14:50 orphenadrine AdvReac Mild PT UNABLE Verified 08/13/23 15:19 TO RESPOND-NEEDS F/U adhesive tape AdvReac Other Verified 08/13/23 14:50 orphenadrine citrate AdvReac groggy Verified 08/13/23 14:50 [From Norgesic] Family History Mother CAD (coronary artery disease) Father CAD (coronary artery disease) Brother CAD (coronary artery disease) Asthma Sister Hypertension Sister Diabetes Sister Heart disease Surgical History History of cardiac catheterization History of cholecystectomy History of coronary artery stent placement (06/04/23) History of hernia repair History of knee surgery History of left heart catheterization (LHC) (~09/28/19) History of nasal surgery History of surgery on wrist History of total abdominal hysterectomy History of tubal ligation Hx of surgical procedure Presence of coronary angioplasty implant and graft (~12/07/03) Social History Smoking Status: Former smoker alcohol intake: never substance use type: does not use caffeine: Yes Type: coffee Number of servings: 1 Physical Exam Const alert, oriented x3 and no apparent distress General Appearance: cooperative HEENT normocephalic and head/scalp atraumatic Eyes PERRL and EOMs intact bilaterally Neck supple and No nodes Resp normal air movement and clear to auscultation bilaterally Cardio regular rate and regular rhythm GI soft to palpation and non-distended GI Narrative: mild epigastric soreness Extremity General Extremity: edema Skin no rashes or lesions noted Neuro CN's II-XII intact bilaterally Lab / Micro Data Attestation: I reviewed the patient's lab results. 08/15/23 05:25 08/15/23 05:25 Labs: Laboratory Results - last 24 hr 08/14/23 17:01: POC Glucose 258 H 08/15/23 00:20: POC Glucose 323 H 08/15/23 05:25: WBC 5.7, RBC 3.45 L, Hgb 10.5 L, Hct 34.5 L, MCV 100.0 H, MCH 30.4, MCHC 30.4 L, RDW Std Deviation 54.4 H, RDW Coeff of Aubrey 15.1 H, Plt Count 181, MPV 10.6, Immature Gran % (Auto) 0.700, Neut % (Auto) 70.9 H, Lymph % (Auto) 11.9 L, [place] % (Auto) 10.8 H, Eos % (Auto) 5.2 H, Baso % (Auto) 0.5, Absolute Neuts (auto) 4.1, Absolute Lymphs (auto) 0.68 L, Nucleated RBC % 0, Sodium 140, Potassium 4.1, Chloride 109 H, Carbon Dioxide 26.0, Anion Gap 5, BUN 16, Creatinine 1.65 H, Estim Creat Clear Calc 24.62, Est GFR (MDRD) Af Amer 40 L , Est GFR (MDRD) Non-Af 33 L, BUN/Creatinine Ratio 9.7 L, Glucose 371 H, Calcium 8.1 L, Phosphorus 2.3 L, Magnesium 2.4, Total Bilirubin 0.70, Direct Bilirubin 0.28, AST 29, ALT 79 H, Alkaline Phosphatase 96, Total Protein 7.1, Albumin 2.6 L, Globulin 4.5 H 08/15/23 05:36: POC Glucose 364 H 08/15/23 11:31: POC Glucose 277 H Micro: Microbiology 08/13/23 16:20 Urine Catheter - Catheter Urine Culture - Preliminary ESBL Escherichia coli Imagaing Radiology Impression MRCP 08/15/23 09:00 IMPRESSION: Choledocholithiasis with moderate biliary dilation. Electronically Signed: Brandon Damon MD (Brooks) at 11:31 EST ,
--- NOTE | 2023-08-15 15:00 | CASEMGMT ---
RN?CM?HEEL FORMER?CM?to room to meet with patient for initial transition planning/care coordination?assessment.?RN?CM?introduced self and role at [facility].? Pt voices understanding and consents to?assessment?at this time.? Pt resting in bed in no distress. Pt is A/O at this time and answers all questions appropriately.?? Care providers, pharmacy, and demographics verified/updated at this time. PCP: Dr Oliveira Specialists: Dr Chowdhury-ortho. Dr Blas-cardiology. Dr Cifuentes-correctional facility psychiatrist Preferred Pharmacy: [facility] mail order. [facility], [place], if goes home over the weekend. Insurance: [facility] Dual Prescription Benefit: yes Living Will/HPOA: none LNOK: 2 daughters, 3 sons Living Arrangements: Patient states she lives with her son in a first floor apartment with 1 step to enter. Pt states she manages her own medications and appts. States Mckennaelissa Velázquez, who stays w/her sometimes and can assist with everything if needed. Has CMSabrina, through [facility] and has aides that assist w/bathing/dressing, reminding her to take her medications, and home mgmt tasks. Transportation: son or friend DME: Pt states she has shower chair, raised toilet seat, lift chair, grab bars, walker, W/C, and medical alert button, [employer] Kira CGM w/all needed supplies and insulin, pulse ox, and home oxygen concentrator with portability at 3lpm through [facility]. RN CM attempted to reach [place] to verify home O2 orders x 3 today. No answer. VM left for return call. Pt states family can bring in portable O2 tank for her to go home on @ discharge. SNF/HHC: Patient states she has previously been to [facility] and [facility] and is currently active w/[facility] and she would like to resume w/them. She states she does not want to go to a SNF. She declines list of other HHC agencies. Irene, digital media planner, to [facility] to them. [facility] order placed. Pt wishes to return home and states has no concerns with going home at time of discharge.? CM?to follow for any further discharge planning/needs.? Pt voices no further concerns/needs at this time.? Advised pt to ask for?CM?if any further questions/concerns/needs arise.? Voices understanding. PLAN:??Home w/[facility] Sulaiman BSN?RN?CM
--- NOTE | 2023-08-15 15:35 | CASEMGMT ---
Social Work SW left a message for Sabrina Mtz, pt's CM with [facility], to let her know pt is here. SW then called the coverage line, spoke w/Lakeshia and let her know pt is here. She has [facility] for aide services, they do not have record of pt having skilled services. Sabrina on Green sheet to be notified at discharge. LETICIA Chao
--- NOTE | 2023-08-15 16:14 | CASEMGMT ---
Discharge Planning Resumption HH referral sent to [facility] via [facility]. Irene Mcghee, Discharge Planning Asst.
[2023-08-15] MEDS: Insulin Lispro 100 UNIT/ML INSULN.PEN 24 UNIT SC (17:11)
[2023-08-15] MEDS: Ascorbic Acid 500 MG Tablet PO (17:12)
[2023-08-15 17:32] LABS: Bedside Glucose 255 mg/dL (74-106)
[2023-08-15] MEDS: busPIRone 15 MG TABLET PO (22:32)
[2023-08-15 23:22] LABS: Bedside Glucose 249 mg/dL (74-106)
[2023-08-16] VITALS (15 sets, daily range): BP systolic 93–135; BP diastolic 61–87; PULSE 76–102; RESP 16–18; TEMP 36.1–36.7; O2SAT 98–100; BMI 37.3
[2023-08-16] MEDS: Insulin Lispro 100 UNIT/ML INSULN.PEN SC ×4 (00:20→18:06)
[2023-08-16 00:40] LABS: Bedside Glucose 254 mg/dL (74-106)
[2023-08-16] MEDS: busPIRone 5 MG Tablet 10 MG PO (06:17)
[2023-08-16] MEDS: Levothyroxine 100 MCG Tablet PO (06:17)
[2023-08-16 06:21] LABS: Absolute Lymphocyte Count 0.71 X10^3/uL (0.83-4.51); Absolute Neutrophil Count 4.9 X10^3/uL (2.0-7.7); Basophil# 0.01 X10^3/uL; Basophil% 0.1 % (0-1); Hematocrit 37.3 % (37-47); Hemoglobin 11.7 g/dL (12.0-15.0); Lymphocyte # 0.71 X10^3/ul (0.83-4.51); Lymphocyte % 10.6 % (19-41); Mean Corp Hgb Conc 31.4 g/dL (32-36); Mean Corpuscular Volume 98.9 fL (81-99); Mean Platelet Vol. 10.6 fl (6.2-12.0); Monocyte# 0.61 X10^3/uL; Monocyte% 9.1 % (0-10); NRBC Flagged by Analyzer 0 % (0-5); Neutrophil # 4.93 X10^3/uL (2.7-7.7); Neutrophil % 73.8 % (47-70); Platelet Count 200 K/mm3 (150-450); RBC Distribution Width SD 54.5 fl (35.1-43.9); Red Blood Count 3.77 M/mm3 (4.2-5.4); White Blood Count 6.7 K/mm3 (4.4-11.0)
[2023-08-16 06:57] LABS: AST(SGOT) 19 U/L (15-37); Alanine Aminotransfer ALT/SGPT 61 U/L (13-56); Albumin, Serum 2.7 g/dL (3.2-5.0); Alkaline Phosphatase 95 U/L (45-117); Anion Gap 5 (5-15); BUN 19 mg/dL (7-18); BUN/Creat Ratio 13.4 RATIO (10-20); Bilirubin, Direct 0.25 mg/dL (0.00-0.30); Calcium,Total 9.4 mg/dL (8.5-10.1); Chloride 103 mmol/L (98-107); Creatinine, Serum 1.42 mg/dL (0.55-1.02); EST Glomerular Filtration Rate 39 mL/min (>60); Est Glom Filt Rate - Afr Amer 47 mL/min (>60); Estimated Creatinine Clearance 28.61 ml/min; Globulin 4.7 g/dL (2.2-4.2); Glucose 218 mg/dL (74-106); Protein, Total 7.4 g/dL (6.4-8.2); Sodium Level 138 mmol/L (136-145)
--- NOTE | 2023-08-16 08:16 | PCM.PN.HOSP ---
Reason for Visit Reason for Visit: Diagnoses Encephalopathy, unspecified (08/13/23) Other specified diseases of biliary tract (08/13/23) Urinary tract infection, site not specified (08/13/23) Elevation of levels of liver transaminase levels (08/13/23) Presence of coronary angioplasty implant and graft (08/13/23) Subjective Subjective MRCP day prior did show choledocholithiasis with moderate biliary dilation.. Plan is for patient to undergo ERCP. Patient antibiotic therapy for her ESBL switched from Zosyn to meropenem Objective Data Objective Data Vital Signs: Vital Signs Temp Pulse Resp BP Pulse Ox O2 Del Method O2 Flow Rate 98.0 F 84 16 94/64 100 Nasal Cannula 2 08/16/23 07:52 08/16/23 07:52 08/16/23 07:52 08/16/23 07:52 08/16/23 07:52 08/16/23 07:52 08/16/23 07:52 Oxygen Flow Rate (L/min) 2 Oxygen Delivery Method Nasal Cannula Weight: 89.5 kg Body Mass Index (BMI) 37.3 Intake & Output: Intake and Output for Last 24 Hours 08/14/23 08/15/23 08/16/23 23:59 23:59 23:59 Intake Total 2860 / 2860 3345 / 3345 420 / 420 Output Total 640 / 640 1300 / 2300 1700 / 1700 Balance 2220 / 2220 2045 / 1045 -1280 / -1280 Lab / Micro Data 08/16/23 05:51 08/16/23 05:51 Labs: Laboratory Results - last 24 hr 08/15/23 11:31: POC Glucose 277 H 08/15/23 17:10: POC Glucose 255 H 08/15/23 22:47: POC Glucose 249 H 08/16/23 00:18: POC Glucose 254 H 08/16/23 05:51: WBC 6.7, RBC 3.77 L, Hgb 11.7 L, Hct 37.3, MCV 98.9, MCH 31.0, MCHC 31.4 L, RDW Std Deviation 54.5 H, RDW Coeff of Aubrey 15.0 H, Plt Count 200, MPV 10.6, Immature Gran % (Auto) 0.400, Neut % (Auto) 73.8 H, Lymph % (Auto) 10.6 L, [place] % (Auto) 9.1, Eos % (Auto) 6.0 H, Baso % (Auto) 0.1, Absolute Neuts (auto) 4.9, Absolute Lymphs (auto) 0.71 L, Nucleated RBC % 0, Sodium 138, Potassium 4.0, Chloride 103, Carbon Dioxide 30.0, Anion Gap 5, BUN 19 H, Creatinine 1.42 H, Estim Creat Clear Calc 28.61, Est GFR (MDRD) Af Amer 47 L, Est GFR (MDRD) Non-Af 39 L, BUN/Creatinine Ratio 13.4, Glucose 218 H, Calcium 9.4, Total Bilirubin 0.70, Direct Bilirubin 0.25, AST 19, ALT 61 H, Alkaline Phosphatase 95, Total Protein 7.4, Albumin 2.7 L, Globulin 4.7 H Micro: Microbiology 08/13/23 16:20 Urine Catheter - Catheter Urine Culture - Final ESBL Escherichia coli Radiography Diagnostic Testing: Radiology Impression MRCP 08/15/23 09:00 IMPRESSION: Choledocholithiasis with moderate biliary dilation. Electronically Signed: Brandon Damon MD (Brooks) at 11:31 EST Reading Location ID and State: [address] [place] [address] , Service support , Physical Exam Narrative GENERAL: cooperative HEENT: Atraumatic; normocephalic EYES; Anicteric, Normal Conjunctiva NECK; supple, normal thyroid, RESPIRATORY: Diminished to auscultation CARDIOVASCULAR: Regular S1 S2, GI: soft, normoactive bowel sounds, : No Renal angle tenderness; EXTREMITIES: No edema, no clubbing, MUSCULOSKELETAL: no muscle wasting NEURO: Awake; no lateralizing signs. SKIN: No Rash PSYCH; Flat affect Assessment & Plan Assessment/Plan (1) Common bile duct dilatation: (2) Elevated transaminase level: (3) Complicated urinary tract infection: (4) Encephalopathy acute: PLAN: Plan Patient is a 68-year-old lady admitted with altered mental status. An assessment of acute encephalopathy secondary to infectious encephalopathy from cystitis made. Patient was also found to have elevated transaminases thought to be secondary to common bile duct stone. Admitted to the intensive care unit for further management 1. Acute metabolic encephalopathy ? Secondary to acute transaminitis and cystitis admitted initially to the ICU with plans to initiate Precedex drip patient did not require it. ? 08/15/2023; patient transferred from ICU to progressive care unit. 2. Acute transaminitis ? Patient admitted to ICU as stated above MRCP ordered per recommendations from GI with consultation placed repeat labs ordered for a.m. ? 08/15/2023; patient seen in consultation by Dr. Lewis with GI his notes and recommendations including MRCP and possible ERCP noted. ? 08/16/2023;MRCP day prior did show choledocholithiasis with moderate biliary dilation.. Plan is for patient to undergo ERCP. 3. Acute cystitis ? Patient started on on Zosyn. Culture sent we will follow-up on result - Patient was transferred from the ICU to progressive care unit. Urine culture so far positive ESBL Escherichia coli. Consult placed to ID ? 08/16/2023; Patient antibiotic therapy for her ESBL switched from Zosyn to meropenem 4. Paroxysmal A-fib ? Patient had elevated rate on admission which has since improved 5. Coronary artery disease ? With previous PCI in 2003 in 2002 currently on guideline directed medical therapy 6. Hypertension - Blood pressure controlled, home medications continued with dose adjustment as needed 7. Dyslipidemia ? Patient statin therapy held in view of her elevated transaminases 8. Diabetes mellitus type II -patient's oral hypoglycemics held. Placed on long acting insulin, Accu-Cheks a.c. and at bedtime and covered with sliding scale insulin ? 08/15/2023 patient blood glucose markedly elevated in view of patient being on dextrose which has since been discontinued adjusted insulin regimen 9. Class II obesity with BMI of 37.8 ? Complicating care weight loss advised 10. Gout ? Patient's allopurinol continued 11. COPD ? Currently not in exacerbation 12. Osteoarthritis pain meds as needed 13. Anemia - Secondary to chronic disorder monitoring H&H and transfuse if patient becomes symptomatic or hemoglobin falls below 7 14. DVT prophylaxis ? SC heparin for now Time spent in the patient's overall evaluation,decision-making process, review of diagnostic data, adjustment of management, discussion with other providers, nursing nursing and ancillary staff involved in patient's care documentation, 40 minutes Charges/Coding Visit Charges Inpatient E&M: 91166 Subs Hosp L2
[2023-08-16] MEDS: Meropenem 1 GM in 0.9% Normal Saline (100mL MB+) 100 ML IV ×2 (09:04→21:10)
[2023-08-16] MEDS: Ferrous Sulfate 325 MG Tablet PO (09:05)
[2023-08-16] MEDS: Ranolazine 500 MG Tablet PO ×2 (09:05→20:50)
[2023-08-16] MEDS: Cholecalciferol (VIT D3) 25 MCG TABLET (1,000 UNITS) 50 MCG PO (09:05)
[2023-08-16] MEDS: Allopurinol 100 MG Tablet PO (09:05)
[2023-08-16] MEDS: guaiFENesin 600 MG Tablet PO ×2 (09:05→20:50)
[2023-08-16] MEDS: Furosemide 20 MG Tablet PO ×2 (09:06→16:42)
[2023-08-16] MEDS: cycloBENZAPRine HCl 10 MG Tablet PO ×2 (09:06→20:49)
[2023-08-16] MEDS: DULoxetine Hcl 60 MG Capsule PO (09:06)
[2023-08-16] MEDS: Famotidine 20 MG Tablet PO (09:06)
[2023-08-16] MEDS: Loratadine 10 MG Tablet PO (09:06)
[2023-08-16] MEDS: Metoprolol Tartrate 50 MG Tablet PO ×2 (09:09→20:47)
[2023-08-16 09:46] LABS: Bedside Glucose 192 mg/dL (74-106)
[2023-08-16 12:42] LABS: Bedside Glucose 228 mg/dL (74-106)
--- NOTE | 2023-08-16 15:10 | RAD_ITS ---
EXAM: FL FLUOROSCOPY < 1 HOUR CLINICAL INDICATION: ERCP TECHNIQUE: Fluoroscopic images performed in multiple projections. Fluoroscopic guidance was provided by a physician. COMPARISON: No relevant prior studies available. FINDINGS: 7 fluoroscopic spot views of the right upper quadrant obtained during endoscopic retrograde contrast injection into the common bile duct. Visualized portions of the extrahepatic bile duct is dilated. Initial images show filling defect within the distal duct suggestive of stone. See operative report for additional information. Total fluoroscopy time of 64 seconds. Total dose 28.29 mGy. RAD/ERCP Biliary/Pancreas IMPRESSION: As above. Electronically Signed: Dannie Handley MD at 12:25 EST ,
[2023-08-16] MEDS: Lactated Ringers 1,000 ML 15 ML IV (15:15)
--- NOTE | 2023-08-16 16:05 | OP.CCLET_ITS ---
08/16/2023 Bhupendra Oliveira Re : ERCP procedure for Tamia Figueroa Angely Oliveira This procedure was performed on Wednesday, August 16, 2023. My impressions and recommendations are as follows: Impressions : - Minor papilla not seen. - The biliary system were markedly dilated, with a stone causing an obstruction. - The patient has had a cholecystectomy. - Choledocholithiasis was found. Complete removal was accomplished by biliary sphincterotomy and balloon extraction. - A biliary sphincterotomy was performed. - The biliary tree was swept. - The left main hepatic duct was successfully dilated. - One temporary stent was placed into the common bile duct. Recommendations : My findings are described in the full procedure note, which is enclosed. If I can be of further assistance, please feel free to contact me at . Sincerely, Jeff Lewis, 08/16/2023 4:03:48 PM This report has been signed electronically.
--- NOTE | 2023-08-16 16:05 | OP.ERCP_ITS ---
Patient Name: Tamia Figueroa Procedure Date: 08/16/2023 3:03 PM Date of : 1955 Age: 68 Procedure: ERCP Indications: Abdominal pain of suspected biliary origin, Bile duct stone(s) Providers: Jeff Lewis DO Medicines: General Anesthesia Patient Profile: This is a 68 year old female. Refer to note in patient chart for documentation of history and physical. Patient has symptoms of acute right upper quadrant abdominal pain, acute jaundice and acute nausea. Complications: No immediate complications. Procedure: Pre-Anesthesia Assessment: - Prior to the procedure, a History and Physical was performed, and patient medications and allergies were reviewed. The patient is competent. The risks and benefits of the procedure and the sedation options and risks were discussed with the patient. All questions were answered and informed consent was obtained. Patient identification and proposed procedure were verified by the physician. Mental Status Examination: normal. CV Examination: normal. Prophylactic Antibiotics: The patient does not require prophylactic antibiotics. Prior Anticoagulants: The patient has taken no anticoagulant or antiplatelet agents. ASA Grade Assessment: III - A patient with severe systemic disease. After reviewing the risks and benefits, the patient was deemed in satisfactory condition to undergo the procedure. The anesthesia plan was to use monitored anesthesia care (MAC). Immediately prior to administration of medications, the patient was re-assessed for adequacy to receive sedatives. The heart rate, respiratory rate, oxygen saturations, blood pressure, adequacy of pulmonary ventilation, and response to care were monitored throughout the procedure. The physical status of the patient was re-assessed after the procedure. After obtaining informed consent, the scope was passed under direct vision. Throughout the procedure, the patient's blood pressure, pulse, and oxygen saturations were monitored continuously. The Duodenoscope was introduced through the mouth, and advanced to the duodenum and used to inject contrast into the bile duct. The ERCP was accomplished without difficulty. The patient tolerated the procedure well. Scope In: 3:20:31 PM Scope Out: 3:39:25 PM Total Procedure Duration Time 0 hours 18 minutes 54 seconds Findings: The motor room controller film was normal. The scope was advanced to a normal major papilla in the descending duodenum. Examination of the pharynx, larynx and associated structures, and upper GI tract was normal. The minor papilla was not seen. The upper GI tract was traversed under direct vision without detailed examination. The major papilla was normal. A straight Roadrunner wire was passed into the biliary tree. The bile duct was then deeply cannulated over the guidewire. Contrast was injected. I personally interpreted the bile duct images. There was brisk flow of contrast through the ducts. Image quality was adequate. Contrast extended to the entire biliary tree. Opacification of the entire biliary tree except for the cystic duct and gallbladder was successful. The maximum diameter of the ducts was 20 mm. The lower third of the main bile duct contained one stone, which was 9 mm in diameter. The entire opacified area was markedly dilated, with a stone causing an obstruction. The largest diameter was 20 mm. A cholecystectomy had been performed. A 5 mm biliary sphincterotomy was made with a traction (standard) sphincterotome using ERBE electrocautery. There was no post-sphincterotomy bleeding. The biliary tree was swept with a 15 mm balloon starting at the bifurcation. Sludge was swept from the duct. All stones were removed. Dilation of the left main hepatic duct with 5-7-8.5 Fr catheter dilator was successful. One 10 Fr by 9 cm temporary stent was placed 5 cm into the common bile duct. Bile flowed through the stent. The stent was in good position. Impression: - Minor papilla not seen. - The biliary system were markedly dilated, with a stone causing an obstruction. - The patient has had a cholecystectomy. - Choledocholithiasis was found. Complete removal was accomplished by biliary sphincterotomy and balloon extraction. - A biliary sphincterotomy was performed. - The biliary tree was swept. - The left main hepatic duct was successfully dilated. - One temporary stent was placed into the common bile duct. Procedure Code(s): --- Professional --- 60073, Endoscopic retrograde cholangiopancreatography (ERCP); with placement of endoscopic stent into biliary or pancreatic duct, including pre- and post-dilation and guide wire passage, when performed, including sphincterotomy, when performed, each stent 73065, Endoscopic retrograde cholangiopancreatography (ERCP); with removal of calculi/debris from biliary/pancreatic duct(s) 28247, 26, Endoscopic catheterization of the biliary ductal system, radiological supervision and interpretation 09237, Unlisted procedure, biliary tract CPT copyright 2021 [employer]. All rights reserved. The codes documented in this report are preliminary and upon steam plant records clerk review may be revised to meet current compliance requirements. Jeff Lewis DO 08/16/2023 4:03:48 PM This report has been signed electronically. Number of Addenda: 0 Note Initiated On: 08/16/2023 3:03 PM
[2023-08-16 16:25] LABS: Bedside Glucose 165 mg/dL (74-106)
[2023-08-16] MEDS: Ascorbic Acid 500 MG Tablet PO (16:42)
[2023-08-16] MEDS: Insulin Lispro 100 UNIT/ML INSULN.PEN 24 UNIT SC (18:06)
[2023-08-16] MEDS: Heparin Injection (Vial) 5,000 UNIT/ML VIAL 5000 UNIT SC (20:49)
[2023-08-16] MEDS: busPIRone 15 MG TABLET PO (20:49)
[2023-08-16] MEDS: Insulin Glargine-YFGN 100 UNIT/ML Pen 60 UNIT SC (20:57)
--- NOTE | 2023-08-16 21:30 | EKG12_ITS ---
Test Reason : CP Blood Pressure : / mmHG Vent. Rate : 108 BPM Atrial Rate : 000 BPM P-R Int : 000 ms QRS Dur : 086 ms QT Int : 354 ms P-R-T Axes : 000 -25 131 degrees QTc Int : 474 ms Atrial fibrillation with rapid ventricular response T wave abnormality, consider lateral ischemia Abnormal ECG When compared with ECG of 13-AUG-2023 15:56, Nonspecific T wave abnormality no longer evident in Anterior leads QT has lengthened Confirmed by ALETA ABRAHAM, ALVAREZ ([id number]), video effects editor MAUREEN YAÑEZ ([id number]) on 08/19/2023 7:14:20 AM Referred By: DR MIRANDA Confirmed By:ALVAREZ RIVER MD
[2023-08-16] MEDS: Nitroglycerin (INPATIENT USE) 0.4 MG TAB.SUBL SL (22:12)
[2023-08-16 22:25] LABS: Bedside Glucose 171 mg/dL (74-106)
[2023-08-16 22:58] LABS: Troponin-I HS 11 pg/mL (3.0-54.0)
[2023-08-17] VITALS (11 sets, daily range): BP systolic 79–130; BP diastolic 63–83; PULSE 59–114; RESP 16–18; TEMP 36.1–36.9; O2SAT 95–99; BMI 36.4
[2023-08-17 00:35] LABS: Bedside Glucose 144 mg/dL (74-106)
[2023-08-17 05:33] LABS: Absolute Lymphocyte Count 0.74 X10^3/uL (0.83-4.51); Absolute Neutrophil Count 4.6 X10^3/uL (2.0-7.7); Basophil# 0.02 X10^3/uL; Basophil% 0.3 % (0-1); Eosinophil# 0.32 X10^3/uL; Hematocrit 38.7 % (37-47); Hemoglobin 12.3 g/dL (12.0-15.0); Lymphocyte # 0.74 X10^3/ul (0.83-4.51); Lymphocyte % 11.6 % (19-41); Mean Corp Hgb Conc 31.8 g/dL (32-36); Mean Corpuscular Hgb 31.2 pg (27.0-32.0); Mean Corpuscular Volume 98.2 fL (81-99); Mean Platelet Vol. 10.4 fl (6.2-12.0); Monocyte# 0.67 X10^3/uL; Monocyte% 10.5 % (0-10); NRBC Flagged by Analyzer 0 % (0-5); Neutrophil # 4.62 X10^3/uL (2.7-7.7); Neutrophil % 72.1 % (47-70); Platelet Count 206 K/mm3 (150-450); RBC Distribution Width CV 14.7 % (11.6-14.6); RBC Distribution Width SD 53.6 fl (35.1-43.9); Red Blood Count 3.94 M/mm3 (4.2-5.4); White Blood Count 6.4 K/mm3 (4.4-11.0)
[2023-08-17] MEDS: busPIRone 5 MG Tablet 10 MG PO ×2 (05:51→14:13)
[2023-08-17] MEDS: Levothyroxine 100 MCG Tablet PO (05:52)
[2023-08-17 06:04] LABS: Anion Gap 6 (5-15); BUN 20 mg/dL (7-18); Chloride 99 mmol/L (98-107); Creatinine, Serum 1.54 mg/dL (0.55-1.02); EST Glomerular Filtration Rate 36 mL/min (>60); Est Glom Filt Rate - Afr Amer 43 mL/min (>60); Estimated Creatinine Clearance 26.38 ml/min; Glucose 134 mg/dL (74-106); Lipase 16 U/L (13-75); Potassium 3.8 mmol/L (3.5-5.1); Sodium Level 137 mmol/L (136-145)
[2023-08-17 06:37] LABS: Bedside Glucose 129 mg/dL (74-106)
--- NOTE | 2023-08-17 07:26 | PCM.PN.HOSP ---
Reason for Visit Reason for Visit: Diagnoses Encephalopathy, unspecified (08/13/23) Other specified diseases of biliary tract (08/13/23) Urinary tract infection, site not specified (08/13/23) Elevation of levels of liver transaminase levels (08/13/23) Presence of coronary angioplasty implant and graft (08/13/23) Subjective Subjective Patient underwent ERCP with biliary stent placement on 08/16/2023 seen this morning complains of right upper quadrant discomfort as well as persistent cough Objective Data Objective Data Vital Signs: Vital Signs Temp Pulse Resp BP Pulse Ox O2 Del Method O2 Flow Rate 98.3 F 59 L 18 105/80 99 Nasal Cannula 2 08/17/23 06:00 08/17/23 06:00 08/17/23 06:00 08/17/23 06:00 08/17/23 06:00 08/17/23 06:00 08/17/23 06:00 Oxygen Flow Rate (L/min) 2 Oxygen Delivery Method Nasal Cannula Weight: 87.5 kg Body Mass Index (BMI) 36.4 Intake & Output: Intake and Output for Last 24 Hours 08/15/23 08/16/23 08/17/23 23:59 23:59 23:59 Intake Total 3345 / 3345 1547.75 / 1547.75 270 / 270 Output Total 1300 / 2300 3150 / 3150 280 / 280 Balance 2045 / 1045 -1602.25 / -1602.25 -10 / -10 Lab / Micro Data 08/17/23 04:53 08/17/23 04:53 Labs: Laboratory Results - last 24 hr 08/16/23 08:57: POC Glucose 192 H 08/16/23 12:15: POC Glucose 228 H 08/16/23 16:04: POC Glucose 165 H 08/16/23 20:56: POC Glucose 171 H 08/16/23 22:36: Troponin I High Sens 11 08/17/23 00:12: POC Glucose 144 H 08/17/23 04:53: WBC 6.4, RBC 3.94 L, Hgb 12.3, Hct 38.7, MCV 98.2, MCH 31.2, MCHC 31.8 L, RDW Std Deviation 53.6 H, RDW Coeff of Aubrey 14.7 H, Plt Count 206, MPV 10.4, Immature Gran % (Auto) 0.500, Neut % (Auto) 72.1 H, Lymph % (Auto) 11.6 L, Clinton % (Auto) 10.5 H, Eos % (Auto) 5.0, Baso % (Auto) 0.3, Absolute Neuts (auto) 4.6, Absolute Lymphs (auto) 0.74 L, Nucleated RBC % 0, Sodium 137, Potassium 3.8, Chloride 99, Carbon Dioxide 32.0, Anion Gap 6, BUN 20 H, Creatinine 1.54 H, Estim Creat Clear Calc 26.38, Est GFR (MDRD) Af Amer 43 L, Est GFR (MDRD) Non-Af 36 L, BUN/Creatinine Ratio 13.0, Glucose 134 H, Calcium 9.0, Lipase 16 08/17/23 05:55: POC Glucose 129 H Micro: Microbiology 08/13/23 16:20 Urine Catheter - Catheter Urine Culture - Final ESBL Escherichia coli Physical Exam Narrative GENERAL: cooperative HEENT: Atraumatic; normocephalic EYES; Anicteric, Normal Conjunctiva NECK; supple, normal thyroid, RESPIRATORY: Diminished to auscultation CARDIOVASCULAR: Regular S1 S2, GI: soft, normoactive bowel sounds, : No Renal angle tenderness; EXTREMITIES: No edema, no clubbing, MUSCULOSKELETAL: no muscle wasting NEURO: Awake; no lateralizing signs. SKIN: No Rash PSYCH; Flat affect Assessment & Plan Assessment/Plan (1) Common bile duct dilatation: (2) Elevated transaminase level: (3) Complicated urinary tract infection: (4) Encephalopathy acute: PLAN: Plan Patient is a 68-year-old lady admitted with altered mental status. An assessment of acute encephalopathy secondary to infectious encephalopathy from cystitis made. Patient was also found to have elevated transaminases thought to be secondary to common bile duct stone. Admitted to the intensive care unit for further management 1. Acute metabolic encephalopathy ? Secondary to acute transaminitis and cystitis admitted initially to the ICU with plans to initiate Precedex drip patient did not require it. ? 08/15/2023; patient transferred from ICU to progressive care unit. 2. Acute transaminitis ? Patient admitted to ICU as stated above MRCP ordered per recommendations from GI with consultation placed repeat labs ordered for a.m. ? 08/15/2023; patient seen in consultation by Dr. Lewis with GI his notes and recommendations including MRCP and possible ERCP noted. ? 08/16/2023;MRCP day prior did show choledocholithiasis with moderate biliary dilation.. Plan is for patient to undergo ERCP. ? 08/17/2023 patient underwent ERCP with biliary stent placement details of procedure as below Impressions - Minor papilla not seen. - The biliary system were markedly dilated, with a stone causing an obstruction. - The patient has had a cholecystectomy. - Choledocholithiasis was found. Complete removal was accomplished by biliary sphincterotomy and balloon extraction. - A biliary sphincterotomy was performed. - The biliary tree was swept. - The left main hepatic duct was successfully dilated. - One temporary stent was placed into the common bile duct. 3. Acute cystitis ? Patient started on on Zosyn. Culture sent we will follow-up on result - Patient was transferred from the ICU to progressive care unit. Urine culture so far positive ESBL Escherichia coli. Consult placed to ID ? 08/16/2023; Patient antibiotic therapy for her ESBL switched from Zosyn to meropenem 4. Paroxysmal A-fib ? Patient had elevated rate on admission which has since improved 5. Coronary artery disease ? With previous PCI in 2003 in 2002 currently on guideline directed medical therapy 6. Hypertension - Blood pressure controlled, home medications continued with dose adjustment as needed 7. Dyslipidemia ? Patient statin therapy held in view of her elevated transaminases 8. Diabetes mellitus type II -patient's oral hypoglycemics held. Placed on long acting insulin, Accu-Cheks a.c. and at bedtime and covered with sliding scale insulin ? 08/15/2023 patient blood glucose markedly elevated in view of patient being on dextrose which has since been discontinued adjusted insulin regimen 9. Class II obesity with BMI of 37.8 ? Complicating care weight loss advised 10. Gout ? Patient's allopurinol continued 11. COPD ? Currently not in exacerbation 12. Osteoarthritis -pain meds as needed 13. Anemia - Secondary to chronic disorder monitoring H&H and transfuse if patient becomes symptomatic or hemoglobin falls below 7 14. DVT prophylaxis ? SC heparin for now 15. Physical deconditioning - Requested for PT OT eval and social media community manager to assist with discharge planning Time spent in the patient's overall evaluation,decision-making process, review of diagnostic data, adjustment of management, discussion with other providers, nursing nursing and ancillary staff involved in patient's care documentation, 40 minutes Charges/Coding Visit Charges Inpatient E&M: 68040 Subs Hosp L2
[2023-08-17 08:47] LABS: Bedside Glucose 143 mg/dL (74-106)
[2023-08-17] MEDS: Meropenem 1 GM in 0.9% Normal Saline (100mL MB+) 100 ML IV ×2 (09:57→22:22)
[2023-08-17] MEDS: Allopurinol 100 MG Tablet PO (09:59)
[2023-08-17] MEDS: Furosemide 20 MG Tablet PO ×2 (09:59→17:23)
[2023-08-17] MEDS: Ferrous Sulfate 325 MG Tablet PO (09:59)
[2023-08-17] MEDS: Cholecalciferol (VIT D3) 25 MCG TABLET (1,000 UNITS) 50 MCG PO (09:59)
[2023-08-17] MEDS: DULoxetine Hcl 60 MG Capsule PO (09:59)
[2023-08-17] MEDS: Metoprolol Tartrate 50 MG Tablet PO ×2 (10:00→23:09)
[2023-08-17] MEDS: guaiFENesin 600 MG Tablet PO ×2 (10:00→22:07)
[2023-08-17] MEDS: cycloBENZAPRine HCl 10 MG Tablet PO ×2 (10:00→22:05)
[2023-08-17] MEDS: Famotidine 20 MG Tablet PO (10:00)
[2023-08-17] MEDS: Heparin Injection (Vial) 5,000 UNIT/ML VIAL 5000 UNIT SC ×2 (10:01→22:06)
[2023-08-17] MEDS: Ranolazine 500 MG Tablet PO ×2 (10:01→22:07)
[2023-08-17] MEDS: Insulin Lispro 100 UNIT/ML INSULN.PEN 14 UNIT SC ×2 (10:08→14:09)
[2023-08-17] MEDS: Insulin Glargine-YFGN 100 UNIT/ML Pen 60 UNIT SC ×2 (10:09→22:26)
[2023-08-17] MEDS: guaiFENesin Dm 10 ML UDC PO (11:43)
[2023-08-17] MEDS: Ondansetron 4 MG/2 ML Vial IV (11:46)
[2023-08-17] MEDS: 0.9% Saline Lock 10 ML Syringe IV ×3 (11:46→22:26)
[2023-08-17 12:09] LABS: Bedside Glucose 257 mg/dL (74-106)
[2023-08-17] MEDS: Insulin Lispro 100 UNIT/ML INSULN.PEN SC ×2 (14:08→17:22)
--- NOTE | 2023-08-17 14:51 | EX.PCM.PN.GI ---
Subjective Subjective Patient underwent an ERCP yesterday. She does complain of some mild 4 out of 10 pain in right upper quadrant and midepigastric area. She denies any chest pain or shortness of breath Objective Data Objective Data Vital Signs: Vital Signs Temp Pulse Resp BP Pulse Ox O2 Del Method O2 Flow Rate 98.3 F 59 L 18 105/80 99 Nasal Cannula 2 08/17/23 11:54 08/17/23 11:54 08/17/23 11:54 08/17/23 11:54 08/17/23 11:54 08/17/23 11:54 08/17/23 11:54 Oxygen Flow Rate (L/min) 2 Oxygen Delivery Method Nasal Cannula Weight: 192 lb 14.472 oz Body Mass Index (BMI) 36.4 Intake & Output: Intake and Output for Last 24 Hours 08/15/23 08/16/23 08/17/23 23:59 23:59 23:59 Intake Total 3345 / 3345 1547.75 / 1547.75 510 / 510 Output Total 1300 / 2300 3150 / 3150 630 / 630 Balance 2045 / 1045 -1602.25 / -1602.25 -120 / -120 Lab / Micro Data 08/17/23 04:53 08/17/23 04:53 Labs: Laboratory Results - last 24 hr 08/16/23 16:04: POC Glucose 165 H 08/16/23 20:56: POC Glucose 171 H 08/16/23 22:36: Troponin I High Sens 11 08/17/23 00:12: POC Glucose 144 H 08/17/23 04:53: WBC 6.4, RBC 3.94 L, Hgb 12.3, Hct 38.7, MCV 98.2, MCH 31.2, MCHC 31.8 L, RDW Std Deviation 53.6 H, RDW Coeff of Aubrey 14.7 H, Plt Count 206, MPV 10.4, Immature Gran % (Auto) 0.500, Neut % (Auto) 72.1 H, Lymph % (Auto) 11.6 L, Schuyler % (Auto) 10.5 H, Eos % (Auto) 5.0, Baso % (Auto) 0.3, Absolute Neuts (auto) 4.6, Absolute Lymphs (auto) 0.74 L, Nucleated RBC % 0, Sodium 137, Potassium 3.8, Chloride 99, Carbon Dioxide 32.0, Anion Gap 6, BUN 20 H, Creatinine 1.54 H, Estim Creat Clear Calc 26.38, Est GFR (MDRD) Af Amer 43 L, Est GFR (MDRD) Non-Af 36 L, BUN/Creatinine Ratio 13.0, Glucose 134 H, Calcium 9.0, Lipase 16 08/17/23 05:55: POC Glucose 129 H 08/17/23 08:00: POC Glucose 143 H 08/17/23 11:38: POC Glucose 257 H Micro: Microbiology 08/13/23 16:20 Urine Catheter - Catheter Urine Culture - Final ESBL Escherichia coli Physical Exam Narrative GENERAL: cooperative HEENT: Atraumatic; normocephalic EYES; Anicteric, Normal Conjunctiva NECK; supple, normal thyroid, RESPIRATORY: Diminished to auscultation CARDIOVASCULAR: Regular S1 S2, GI: soft, normoactive bowel sounds, : No Renal angle tenderness; EXTREMITIES: No edema, no clubbing, MUSCULOSKELETAL: no muscle wasting NEURO: Awake; no lateralizing signs. SKIN: No Rash PSYCH; Flat affect Assessment & Plan Assessment/Plan (1) Choledocholithiasis: PLAN: Status post ERCP with stone removal and stent placement. I will put her on lactated Ringer's. It is a possibility that she has some local inflammation from the stent and contrast used during the procedure. Hopefully with administration of IV fluids with stents typical treatment that she was started to get better regarding pain. She is tolerating a diet at this. Continue to monitor. Charges/Coding Visit Charges Inpatient E&M: 41228 Subs Hosp L3
[2023-08-17] MEDS: Lactated Ringers 1,000 ML 250 ML IV ×2 (15:13→22:00)
[2023-08-17 16:42] LABS: Bedside Glucose 291 mg/dL (74-106)
[2023-08-17] MEDS: Insulin Lispro 100 UNIT/ML INSULN.PEN 24 UNIT SC (17:22)
[2023-08-17] MEDS: Ascorbic Acid 500 MG Tablet PO (18:28)
[2023-08-17] MEDS: hydrOXYzine 50 MG/ML Vial IM (19:52)
[2023-08-17] MEDS: busPIRone 15 MG TABLET PO (22:05)
[2023-08-17 22:47] LABS: Bedside Glucose 115 mg/dL (74-106)
[2023-08-18] VITALS (9 sets, daily range): BP systolic 92–144; BP diastolic 58–86; PULSE 68–115; RESP 14–20; TEMP 36.2–36.9; O2SAT 93–98; BMI 36.8
[2023-08-18] MEDS: Insulin Lispro 100 UNIT/ML INSULN.PEN SC ×4 (00:27→16:37)
[2023-08-18 00:46] LABS: Bedside Glucose 167 mg/dL (74-106)
[2023-08-18] MEDS: Lactated Ringers 1,000 ML 250 ML IV ×6 (02:02→19:56)
[2023-08-18] MEDS: Levothyroxine 100 MCG Tablet PO (06:34)
[2023-08-18] MEDS: busPIRone 5 MG Tablet 10 MG PO ×2 (06:34→13:21)
[2023-08-18 07:21] LABS: Bedside Glucose 151 mg/dL (74-106)
[2023-08-18] MEDS: Insulin Lispro 100 UNIT/ML INSULN.PEN 14 UNIT SC ×2 (09:36→11:26)
[2023-08-18] MEDS: Allopurinol 100 MG Tablet PO (09:37)
[2023-08-18] MEDS: DULoxetine Hcl 60 MG Capsule PO (09:38)
[2023-08-18] MEDS: Cholecalciferol (VIT D3) 25 MCG TABLET (1,000 UNITS) 50 MCG PO (09:38)
[2023-08-18] MEDS: Famotidine 20 MG Tablet PO (09:38)
[2023-08-18] MEDS: Ranolazine 500 MG Tablet PO ×2 (09:38→21:22)
[2023-08-18] MEDS: Insulin Glargine-YFGN 100 UNIT/ML Pen 60 UNIT SC ×2 (09:39→21:18)
[2023-08-18] MEDS: Heparin Injection (Vial) 5,000 UNIT/ML VIAL 5000 UNIT SC (09:40)
[2023-08-18] MEDS: Meropenem 1 GM in 0.9% Normal Saline (100mL MB+) 100 ML IV ×2 (09:42→21:30)
[2023-08-18] MEDS: Loratadine 10 MG Tablet PO (09:42)
--- NOTE | 2023-08-18 09:42 | PCM.PN.HOSP ---
Reason for Visit Reason for Visit: Diagnoses Encephalopathy, unspecified (08/13/23) Calculus of bile duct without cholangitis or cholecystitis without obstruction (08/13/23) Other specified diseases of biliary tract (08/13/23) Urinary tract infection, site not specified (08/13/23) Elevation of levels of liver transaminase levels (08/13/23) Presence of coronary angioplasty implant and graft (08/13/23) Subjective Subjective Patient reports some generalized aches, reports her abdominal pain is better today Objective Data Objective Data Vital Signs: Vital Signs Temp Pulse Resp BP Pulse Ox O2 Del Method O2 Flow Rate 98.3 F 88 18 100/59 L 95 Nasal Cannula 1 08/18/23 09:32 08/18/23 09:32 08/18/23 09:32 08/18/23 09:32 08/18/23 09:32 08/18/23 09:32 08/18/23 09:32 Oxygen Flow Rate (L/min) 1 Oxygen Delivery Method Nasal Cannula Weight: 88.6 kg Body Mass Index (BMI) 36.8 Intake & Output: Intake and Output for Last 24 Hours 08/16/23 08/17/23 08/18/23 23:59 23:59 23:59 Intake Total 1547.75 / 1547.75 2230 / 2230 2220 / 2220 Output Total 3150 / 3150 2180 / 2180 750 / 750 Balance -1602.25 / -1602.25 50 / 50 1470 / 1470 Lab / Micro Data 08/17/23 04:53 08/17/23 04:53 Labs: Laboratory Results - last 24 hr 08/17/23 11:38: POC Glucose 257 H 08/17/23 16:13: POC Glucose 291 H 08/17/23 22:25: POC Glucose 115 H 08/18/23 00:24: POC Glucose 167 H 08/18/23 06:39: POC Glucose 151 H Micro: Microbiology 08/13/23 16:20 Urine Catheter - Catheter Urine Culture - Final ESBL Escherichia coli Physical Exam Narrative General: Alert, oriented, no apparent distress HEENT: Atraumatic, normocephalic Eyes: Anicteric, normal conjunctiva, extraocular movements grossly intact Neck: Supple Respiratory: Somewhat diminished at the bases, suspect in part due to habitus, normal respiratory effort Cardiovascular: Regular rate and rhythm GI: Soft, nontender, nondistended Extremities: No edema Musculoskeletal: Moving all extremities Neuro: No overt focal neurological deficits Skin: No rashes appreciated Psych: Cooperative Assessment & Plan Assessment/Plan (1) Common bile duct dilatation: (2) Elevated transaminase level: (3) Complicated urinary tract infection: (4) Encephalopathy acute: PLAN: Plan #Acute metabolic encephalopathy secondary to ESBL UTI -Improved with treatment of underlying etiology -Patient presently on Merrem -Infectious disease following #Transaminitis secondary to choledocholithiasis -Status post ERCP 08/16/2023 -GI following -Presently on Merrem -Also receiving IVF #Paroxysmal atrial fibrillation -Continue metoprolol, full dose AC had been held but is now been resumed. Additionally patient has aspirin, Plavix, and Eliquis on home med list, but it appears that aspirin was supposed to be discontinued and she was only supposed to be taking Plavix and Eliquis based on most recent cardiology visit, resumed Eliquis and Plavix #Hypothyroidism -Continue Synthroid #Type 2 diabetes mellitus -Glucose checks and sliding scale insulin -Continue to adjust Premeal and insulin glargine #Anxiety -Continue Cymbalta and BuSpar #Coronary artery disease -Status post PCI 2003 and 2002, additionally patient had OK with recent in-stent stenosis 06/04/2023 -[id number] w/2.25 x 18 mm Resolute Jorge RX SU, PTCA alone to in-stent restenosis D1 06/04/23 -Restarted Plavix and Eliquis after discussing with GI today #DVT ppx: Kenton Champagne MD Time spent in the patient's overall evaluation,decision-making process, review of diagnostic data, adjustment of management, discussion with other providers, nursing nursing and ancillary staff involved in patient's care documentation, 37 Minutes Charges/Coding Visit Charges Inpatient E&M: 99609 Subs Hosp L2
[2023-08-18] MEDS: Docusate Sodium 100 MG Capsule PO (10:10)
[2023-08-18] MEDS: APIXABAN 5 MG TABLET PO ×2 (11:28→21:17)
[2023-08-18] MEDS: Clopidogrel Bisulfate 75 MG Tablet PO (11:28)
[2023-08-18] MEDS: Ferrous Sulfate 325 MG Tablet PO (11:30)
[2023-08-18 12:03] LABS: Bedside Glucose 215 mg/dL (74-106)
--- NOTE | 2023-08-18 13:36 | PCM.PN.ID ---
Physical Exam Narrative Sleeping today, no fever, no events overnight Const no apparent distress Resp normal air movement and clear to auscultation bilaterally Cardio regular rate and regular rhythm GI soft to palpation, non-tender and non-distended Skin no rashes or lesions noted ID ID: Route of nutrition/ use of supplements: [] Nutritional Intake: [] IV Site: [] Maradiaga Catheter: [] Assessment & Plan Assessment/Plan (1) Complicated urinary tract infection: PLAN: Ucx with esbl ecoli uti. MRCP shows bile duct dilation, ERCP done 08/16. On naila. Plan on stopping tomorrow or the next day. Will follow (2) Encephalopathy acute: (3) Common bile duct dilatation:
[2023-08-18] MEDS: Acetaminophen 325 MG Tablet 650 MG PO ×2 (15:22→21:15)
--- NOTE | 2023-08-18 16:19 | EX.PCM.PN.GI ---
Subjective Subjective Patient is doing well and her abdominal pain is alot better. Objective Data Objective Data Vital Signs: Vital Signs Temp Pulse Resp BP Pulse Ox O2 Del Method O2 Flow Rate 97.8 F 96 18 118/64 98 Nasal Cannula 1 08/18/23 15:12 08/18/23 15:12 08/18/23 15:12 08/18/23 15:12 08/18/23 15:12 08/18/23 15:28 08/18/23 15:34 Oxygen Flow Rate (L/min) 1 Oxygen Delivery Method Nasal Cannula Weight: 195 lb 5.273 oz Body Mass Index (BMI) 36.8 Intake & Output: Intake and Output for Last 24 Hours 08/16/23 08/17/23 08/18/23 23:59 23:59 23:59 Intake Total 1547.75 / 1547.75 2230 / 2230 4648.33 / 4648.33 Output Total 3150 / 3150 2180 / 2180 750 / 750 Balance -1602.25 / -1602.25 50 / 50 3898.33 / 3898.33 Lab / Micro Data 08/17/23 04:53 08/17/23 04:53 Labs: Laboratory Results - last 24 hr 08/17/23 16:13: POC Glucose 291 H 08/17/23 22:25: POC Glucose 115 H 08/18/23 00:24: POC Glucose 167 H 08/18/23 06:39: POC Glucose 151 H 08/18/23 11:25: POC Glucose 215 H Micro: Microbiology 08/13/23 16:20 Urine Catheter - Catheter Urine Culture - Final ESBL Escherichia coli Radiography Diagnostic Testing: Radiology Impression Endo Retro Cholangiopancreatogram 08/16/23 15:10 IMPRESSION: As above. Electronically Signed: Dannie Handley MD at 12:25 EST , Physical Exam Narrative Sleeping today, no fever, no events overnight Const no apparent distress Resp normal air movement and clear to auscultation bilaterally Cardio regular rate and regular rhythm GI soft to palpation, non-tender and non-distended Skin no rashes or lesions noted Assessment & Plan Assessment/Plan (1) Choledocholithiasis: (2) Elevated transaminase level: (3) Complicated urinary tract infection: (4) Encephalopathy acute: PLAN: Plan Patient is a 68-year-old lady admitted with altered mental status. An assessment of acute encephalopathy secondary to infectious encephalopathy from cystitis made. Patient was also found to have elevated transaminases thought to be secondary to common bile duct stone. Status post ERCP with stone removal and stent placement. I will put her on lactated Ringer's. It is a possibility that she has some local inflammation from the stent and contrast used during the procedure. Hopefully with administration of IV fluids with stents typical treatment that she was started to get better regarding pain. She is tolerating a diet at this. Continue to monitor. She is feeling better and is tolerating a normal diet. Charges/Coding Visit Charges Inpatient E&M: 68779 [facility] Hosp L3
[2023-08-18] MEDS: Insulin Lispro 100 UNIT/ML INSULN.PEN 24 UNIT SC (16:36)
[2023-08-18] MEDS: Ascorbic Acid 500 MG Tablet PO (16:38)
[2023-08-18] MEDS: Furosemide 20 MG Tablet PO (16:38)
[2023-08-18 17:01] LABS: Bedside Glucose 233 mg/dL (74-106)
[2023-08-18] MEDS: Ondansetron 4 MG/2 ML Vial IV (20:00)
[2023-08-18] MEDS: busPIRone 15 MG TABLET PO (21:17)
[2023-08-18] MEDS: cycloBENZAPRine HCl 10 MG Tablet PO (21:18)
[2023-08-18] MEDS: guaiFENesin 600 MG Tablet PO (21:22)
[2023-08-18] MEDS: Metoprolol Tartrate 50 MG Tablet PO (21:24)
--- NOTE | 2023-08-18 23:40 | RAD_ITS ---
INDICATION: abdominal pain COMPARISON: Abdominal CT 06/03/2023. FINDINGS: 2 frontal views of the abdomen. Lower abdominal surgical clips and mesh anchors. Right upper quadrant biliary stent in place. Nonobstructive bowel gas pattern. No obvious free air. No definite suspicious calcifications. No mass appreciated. Left proximal femur orthopedic hardware, only partially imaged, although no obvious hardware complication. RAD/Abdomen Single View (Portable) IMPRESSION: Post procedure change without obvious acute abnormality of the abdomen. Electronically Signed: Wyatt River MD at 1:16 EST ,
[2023-08-19] VITALS (7 sets, daily range): BP systolic 109–120; BP diastolic 71–97; PULSE 80–115; RESP 15–19; TEMP 36.4–37.2; O2SAT 97–100; BMI 36.8
[2023-08-19] MEDS: Lactated Ringers 1,000 ML 250 ML IV ×2 (00:17→04:30)
[2023-08-19] MEDS: Insulin Lispro 100 UNIT/ML INSULN.PEN SC ×3 (00:21→11:42)
[2023-08-19 00:57] LABS: Bedside Glucose 146 mg/dL (74-106)
[2023-08-19 00:57] LABS: Bedside Glucose 224 mg/dL (74-106)
--- NOTE | 2023-08-19 01:13 | PCM.HOSP.N ---
Hospitalist Note Patient began complaining of abdominal pain. I went to evaluate and pt was complaining of pain all over put indicated that it was more umbilical. On exam, she had no RUQ abdominal tenderness. +Tenderness over ventral hernia, but no rebound. AXR on my evaluation was unremarkable. Notably, no ileus/SBO (official report pending). Await final read. No indication at this time for CT imaging unless condition changes.
[2023-08-19] MEDS: guaiFENesin Dm 10 ML UDC PO (05:54)
[2023-08-19] MEDS: Levothyroxine 100 MCG Tablet PO (05:54)
[2023-08-19] MEDS: busPIRone 5 MG Tablet 10 MG PO ×2 (05:54→13:42)
[2023-08-19] MEDS: Acetaminophen 325 MG Tablet 650 MG PO (05:55)
[2023-08-19 06:52] LABS: ALB/GLOB Ratio 0.6 RATIO (0.9-2.4); AST(SGOT) 247 U/L (15-37); Alanine Aminotransfer ALT/SGPT 195 U/L (13-56); Albumin, Serum 2.3 g/dL (3.2-5.0); Alkaline Phosphatase 162 U/L (45-117); Anion Gap 1 (5-15); BUN 20 mg/dL (7-18); BUN/Creat Ratio 14.3 RATIO (10-20); Calcium,Total 8.6 mg/dL (8.5-10.1); Chloride 103 mmol/L (98-107); EST Glomerular Filtration Rate 40 mL/min (>60); Est Glom Filt Rate - Afr Amer 48 mL/min (>60); Estimated Creatinine Clearance 29.02 ml/min; Globulin 3.9 g/dL (2.2-4.2); Glucose 234 mg/dL (74-106); Potassium 3.9 mmol/L (3.5-5.1); Protein, Total 6.2 g/dL (6.4-8.2); Sodium Level 138 mmol/L (136-145)
--- NOTE | 2023-08-19 08:32 | PN.HOSP_ITS ---
Reason for Visit Reason for Visit: Diagnoses Encephalopathy, unspecified (08/13/23) Calculus of bile duct without cholangitis or cholecystitis without obstruction (08/13/23) Other specified diseases of biliary tract (08/13/23) Urinary tract infection, site not specified (08/13/23) Elevation of levels of liver transaminase levels (08/13/23) Presence of coronary angioplasty implant and graft (08/13/23) Subjective Subjective Patient reports that she still aches all over, overnight had some lower abdominal cramping and gas and became generalized, feeling slightly better this a.m. but is perturbed by this Objective Data Objective Data Vital Signs: Vital Signs Temp Pulse Resp BP Pulse Ox O2 Del Method O2 Flow Rate 97.7 F L 68 20 H 144/86 H 93 Nasal Cannula 1 08/18/23 23:34 08/18/23 23:34 08/18/23 23:34 08/18/23 23:34 08/18/23 23:34 08/19/23 06:00 08/19/23 06:00 Oxygen Flow Rate (L/min) 1 Oxygen Delivery Method Nasal Cannula Weight: 88.5 kg Body Mass Index (BMI) 36.8 Intake & Output: Intake and Output for Last 24 Hours 08/17/23 08/18/23 08/19/23 23:59 23:59 23:59 Intake Total 2230 / 2230 5648.33 / 6148.33 3070 / 3070 Output Total 2180 / 2180 750 / 2350 3500 / 3500 Balance 50 / 50 4898.33 / 3798.33 -430 / -430 Lab / Micro Data 08/17/23 04:53 08/19/23 06:00 Labs: Laboratory Results - last 24 hr 08/18/23 11:25: POC Glucose 215 H 08/18/23 16:27: POC Glucose 233 H 08/18/23 21:21: POC Glucose 146 H 08/19/23 00:20: POC Glucose 224 H 08/19/23 06:00: Sodium 138, Potassium 3.9, Chloride 103, Carbon Dioxide 34.0 H, Anion Gap 1 L, BUN 20 H, Creatinine 1.40 H, Estim Creat Clear Calc 29.02, Est GFR (MDRD) Af Amer 48 L, Est GFR (MDRD) Non-Af 40 L, BUN/Creatinine Ratio 14.3, Glucose 234 H, Calcium 8.6, Total Bilirubin 1.40 H, AST 247 H, ALT 195 H, Alkaline Phosphatase 162 H, Total Protein 6.2 L, Albumin 2.3 L, Globulin 3.9, Albumin/Globulin Ratio 0.6 L Micro: Microbiology 08/13/23 16:20 Urine Catheter - Catheter Urine Culture - Final ESBL Escherichia coli Radiography Diagnostic Testing: Radiology Impression Endo Retro Cholangiopancreatogram 08/16/23 15:10 IMPRESSION: As above. Electronically Signed: Dannie Handley MD at 12:25 EST , KUB X-Ray 08/18/23 23:40 IMPRESSION: Post procedure change without obvious acute abnormality of the abdomen. Electronically Signed: Wyatt River MD at 1:16 EST , Physical Exam Narrative General: Alert, no apparent distress HEENT: Atraumatic, normocephalic Eyes: Anicteric, normal conjunctiva, extraocular movements grossly intact Neck: Supple Respiratory: Somewhat diminished at the bases, suspect in part due to habitus, normal respiratory effort Cardiovascular: Regular rate GI: Soft, nondistended, hypoactive bowel sounds, no rebound, guarding, rigidity Extremities: No edema Musculoskeletal: Moving all extremities Neuro: No overt focal neurological deficits Skin: No rashes appreciated Psych: Overall Assessment & Plan Assessment/Plan (1) Common bile duct dilatation: (2) Elevated transaminase level: (3) Complicated urinary tract infection: (4) Encephalopathy acute: PLAN: Plan #Transaminitis secondary to choledocholithiasis -Status post ERCP 08/16/2023 -GI following -Presently on Merrem -Also receiving IVF -08/19: Patient had removal of stone and stent placement as above, still on LR, had abdominal pain however, seems to be more gas or bowel movement related, had no obstruction on KUB but does have increase in bili and LFTs however last time they were checked was 08/16 so unclear the acuity, will trend CMP. GI following. In regards to bowel movements we will schedule MiraLAX, reports hi story of gastroparesis but is allergic to Reglan, could consider scheduling mirtazapine however would not want to promote weight gain if possible #Paroxysmal atrial fibrillation -Continue metoprolol, full dose AC had been held but is now been resumed. Additionally patient has aspirin, Plavix, and Eliquis on home med list, but it appears that aspirin was supposed to be discontinued and she was only supposed to be taking Plavix and Eliquis based on most recent cardiology visit, resumed Eliquis and Plavix -08/19: Back on Eliquis and Plavix #Acute metabolic encephalopathy secondary to ESBL UTI -Improved with treatment of underlying etiology -Patient presently on Merrem -Infectious disease following -08/19: Patient alert and answers questions appropriately #Hypothyroidism -Continue Synthroid #Type 2 diabetes mellitus -Glucose checks and sliding scale insulin -Continue to adjust Premeal and insulin glargine #Anxiety -Continue Cymbalta and BuSpar #Coronary artery disease -Status post PCI 2003 and 2002, additionally patient had MT with recent in-stent stenosis 06/04/2023 -[id number] w/2.25 x 18 mm Resolute Jorge RX SU, PTCA alone to in-stent restenosis D1 06/04/23 -Restarted Plavix and Eliquis after discussing with GI today -08/19: Medications resumed #DVT ppx: Kenton Champagne MD Time spent in the patient's overall evaluation,decision-making process, review of diagnostic data, adjustment of management, discussion with other providers, nursing nursing and ancillary staff involved in patient's care documentation, 37 Minutes Charges/Coding Visit Charges Inpatient E&M: 11482 Subs Hosp L2
[2023-08-19] MEDS: Insulin Lispro 100 UNIT/ML INSULN.PEN 14 UNIT SC ×2 (09:00→11:42)
[2023-08-19] MEDS: APIXABAN 5 MG TABLET PO ×2 (09:01→21:16)
[2023-08-19] MEDS: Ranolazine 500 MG Tablet PO ×2 (09:02→21:20)
[2023-08-19] MEDS: Cholecalciferol (VIT D3) 25 MCG TABLET (1,000 UNITS) 50 MCG PO (09:02)
[2023-08-19] MEDS: DULoxetine Hcl 60 MG Capsule PO (09:02)
[2023-08-19] MEDS: guaiFENesin 600 MG Tablet PO ×2 (09:02→21:20)
[2023-08-19] MEDS: cycloBENZAPRine HCl 10 MG Tablet PO ×2 (09:02→21:16)
[2023-08-19] MEDS: Allopurinol 100 MG Tablet PO (09:02)
[2023-08-19] MEDS: Famotidine 20 MG Tablet PO (09:03)
[2023-08-19] MEDS: Clopidogrel Bisulfate 75 MG Tablet PO (09:03)
[2023-08-19] MEDS: Metoprolol Tartrate 50 MG Tablet PO ×2 (09:03→21:34)
[2023-08-19] MEDS: Magnesium Hydroxide 30 ML UDC PO (09:04)
[2023-08-19] MEDS: Docusate Sodium 100 MG Capsule PO ×2 (09:09→21:15)
[2023-08-19] MEDS: Polyethylene Glycol 3350 17 GM PACKET PO ×2 (09:10→21:15)
[2023-08-19] MEDS: Lactated Ringers 1,000 ML 100 ML IV ×2 (09:10→18:53)
[2023-08-19] MEDS: Insulin Glargine-YFGN 100 UNIT/ML Pen 60 UNIT SC ×2 (09:11→21:16)
[2023-08-19 09:24] LABS: Bedside Glucose 174 mg/dL (74-106)
[2023-08-19] MEDS: Meropenem 1 GM in 0.9% Normal Saline (100mL MB+) 100 ML IV ×2 (11:38→21:35)
[2023-08-19] MEDS: Ferrous Sulfate 325 MG Tablet PO (11:39)
[2023-08-19 12:49] LABS: Bedside Glucose 168 mg/dL (74-106)
--- NOTE | 2023-08-19 16:13 | PN.GI_ITS ---
Subjective Subjective Patient does not have any abdominal pain but her LFTs have been trending up. Objective Data Objective Data Vital Signs: Vital Signs Temp Pulse Resp BP Pulse Ox O2 Del Method O2 Flow Rate 97.8 F 87 17 119/76 97 Nasal Cannula 1 08/19/23 13:47 08/19/23 13:47 08/19/23 13:47 08/19/23 13:47 08/19/23 13:47 08/19/23 16:10 08/19/23 16:10 Oxygen Flow Rate (L/min) 1 Oxygen Delivery Method Nasal Cannula Weight: 195 lb 1.745 oz Body Mass Index (BMI) 36.8 Intake & Output: Intake and Output for Last 24 Hours 08/17/23 08/18/23 08/19/23 23:59 23:59 23:59 Intake Total 2230 / 2230 5648.33 / 6148.33 5476.67 / 5476.67 Output Total 2180 / 2180 750 / 2350 4700 / 4700 Balance 50 / 50 4898.33 / 3798.33 776.67 / 776.67 Lab / Micro Data 08/17/23 04:53 08/19/23 06:00 Labs: Laboratory Results - last 24 hr 08/18/23 16:27: POC Glucose 233 H 08/18/23 21:21: POC Glucose 146 H 08/19/23 00:20: POC Glucose 224 H 08/19/23 06:00: Sodium 138, Potassium 3.9, Chloride 103, Carbon Dioxide 34.0 H, Anion Gap 1 L, BUN 20 H, Creatinine 1.40 H, Estim Creat Clear Calc 29.02, Est GFR (MDRD) Af Amer 48 L, Est GFR (MDRD) Non-Af 40 L, BUN/Creatinine Ratio 14.3, Glucose 234 H, Calcium 8.6, Total Bilirubin 1.40 H, AST 247 H, ALT 195 H, Alkaline Phosphatase 162 H, Total Protein 6.2 L, Albumin 2.3 L, Globulin 3.9, Albumin/Globulin Ratio 0.6 L 08/19/23 08:54: POC Glucose 174 H 08/19/23 11:41: POC Glucose 168 H Micro: Microbiology 08/13/23 16:20 Urine Catheter - Catheter Urine Culture - Final ESBL Escherichia coli Radiography Diagnostic Testing: Radiology Impression KUB X-Ray 08/18/23 23:40 IMPRESSION: Post procedure change without obvious acute abnormality of the abdomen. Electronically Signed: Wyatt River MD at 1:16 EST , Physical Exam Narrative General: Alert, no apparent distress HEENT: Atraumatic, normocephalic Eyes: Anicteric, normal conjunctiva, extraocular movements grossly intact Neck: Supple Respiratory: Somewhat diminished at the bases, suspect in part due to habitus, normal respiratory effort Cardiovascular: Regular rate GI: Soft, nondistended, hypoactive bowel sounds, no rebound, guarding, rigidity Extremities: No edema Musculoskeletal: Moving all extremities Neuro: No overt focal neurological deficits Skin: No rashes appreciated Psych: Overall Assessment & Plan Assessment/Plan (1) Choledocholithiasis: (2) Elevated transaminase level: (3) Complicated urinary tract infection: (4) Encephalopathy acute: PLAN: Plan Patient is a 68-year-old lady admitted with altered mental status. An assessment of acute encephalopathy secondary to infectious encephalopathy from cystitis made. Patient was also found to have elevated transaminases thought to be secondary to common bile duct stone. Status post ERCP with stone removal and stent placement. I will put her on lactated Ringer's. It is a possibility that she has some local inflammation fr om the stent and contrast used during the procedure. Hopefully with administration of IV fluids with stents typical treatment that she was started to get better regarding pain. She is tolerating a diet at this. Continue to monitor. She is feeling better and is tolerating a normal diet. Differential diagnosis for her increase in LFTs could be medications, sludge in the stent or a proximal common bile duct stone it fell down and clogged the stent. We will continue to trend her LFTs. If they continue to go up and she would likely need a stent exchange with balloon sweep of the common bile duct. Charges/Coding Visit Charges Inpatient E&M: 37862 Subs Hosp L3
[2023-08-19] MEDS: Albuterol 2.5 MG/3 ML VIAL.NEB. INHALATION (16:26)
--- NOTE | 2023-08-19 16:45 | CASEMGMT ---
TOM ROCHA in to discuss discharge planning with patient. TOM ROCHA review progress with therapy, requiring min assist x1 and ambulating 3 ft. Patient states she wants to go home with resumption of her HHC. Encourage patient to get up to chair for dinner and will see how she does with therapy tomorrow to ensure she is safe to go home. Patient agreeable to working with therapy tomorrow. TOM ROCHA updated nurse to encourage patient to sit up in chair for dinner. CM will continue to follow this patient and plan for a safe discharge.
[2023-08-19 17:45] LABS: Bedside Glucose 110 mg/dL (74-106)
[2023-08-19] MEDS: Ascorbic Acid 500 MG Tablet PO (18:51)
[2023-08-19] MEDS: Insulin Lispro 100 UNIT/ML INSULN.PEN 24 UNIT SC (18:53)
[2023-08-19] MEDS: busPIRone 15 MG TABLET PO (21:15)
[2023-08-19] MEDS: 0.9% Saline Lock 10 ML Syringe IV (23:16)
[2023-08-19 23:21] LABS: Bedside Glucose 136 mg/dL (74-106)
[2023-08-19 23:46] LABS: Bedside Glucose 97 mg/dL (74-106)
--- NOTE | 2023-08-20 00:59 | NURSING ---
pt. appears confused- A&Ox2-3; intermittent confusion, states she saw her mom outside of the window, that she needs to leave to take her medicine (i had given her her medicine a few minutes prior to this); pulled out IV and tried to detach k-pad from unit to take home, spilling water. Pt. was on phone with sister, who asked to talk to this nurse- would like Dr. Champagne to call her in the morning regarding confusion. Will pass on to day shift for Dr. Champagne.
[2023-08-20 03:25] VITALS: BP 139/52; PULSE 80; RESP 18; TEMP 36.3; O2SAT 98
[2023-08-20 05:57] VITALS: BMI 36.9
[2023-08-20 06:52] LABS: Bedside Glucose 96 mg/dL (74-106)
[2023-08-20 06:52] LABS: Bedside Glucose 52 mg/dL (74-106)
[2023-08-20] MEDS: Lactated Ringers 1,000 ML 100 ML IV (06:53)
[2023-08-20 07:10] VITALS: O2SAT 95
[2023-08-20 07:33] LABS: ALB/GLOB Ratio 0.6 RATIO (0.9-2.4); AST(SGOT) 100 U/L (15-37); Alanine Aminotransfer ALT/SGPT 133 U/L (13-56); Albumin, Serum 2.3 g/dL (3.2-5.0); Alkaline Phosphatase 168 U/L (45-117); Anion Gap 4 (5-15); BUN 14 mg/dL (7-18); BUN/Creat Ratio 13.5 RATIO (10-20); Calcium,Total 8.4 mg/dL (8.5-10.1); Chloride 106 mmol/L (98-107); Creatinine, Serum 1.04 mg/dL (0.55-1.02); EST Glomerular Filtration Rate 56 mL/min (>60); Est Glom Filt Rate - Afr Amer 68 mL/min (>60); Estimated Creatinine Clearance 39.07 ml/min; Glucose 95 mg/dL (74-106); Potassium 4.4 mmol/L (3.5-5.1); Protein, Total 6.3 g/dL (6.4-8.2); Sodium Level 139 mmol/L (136-145)
--- NOTE | 2023-08-20 08:00 | PN.GI_ITS ---
Subjective Subjective Patient is doing very well and abdominal pain is completely resolved. Objective Data Objective Data Vital Signs: Vital Signs Temp Pulse Resp BP Pulse Ox O2 Del Method O2 Flow Rate 98.9 F 105 H 18 106/69 100 Nasal Cannula 1 08/20/23 15:40 08/20/23 15:40 08/20/23 15:40 08/20/23 15:40 08/20/23 15:40 08/20/23 15:40 08/20/23 15:40 Oxygen Flow Rate (L/min) 1 Oxygen Delivery Method Nasal Cannula Weight: 195 lb 8.8 oz Body Mass Index (BMI) 36.9 Intake & Output: Intake and Output for Last 24 Hours 08/18/23 08/19/23 08/20/23 23:59 23:59 23:59 Intake Total 5648.33 / 6148.33 6361.67 / 6961.67 3463.33 / 3463.33 Output Total 750 / 2350 5600 / 5600 600 / 600 Balance 4898.33 / 3798.33 761.67 / 1361.67 2863.33 / 2863.33 Lab / Micro Data 08/20/23 06:20 08/20/23 06:20 Labs: Laboratory Results - last 24 hr 08/19/23 17:27: POC Glucose 110 H 08/19/23 21:12: POC Glucose 136 H 08/19/23 23:28: POC Glucose 97 08/20/23 04:51: POC Glucose 52 L 08/20/23 05:54: POC Glucose 96 08/20/23 06:20: WBC 6.5, RBC 3.46 L, Hgb 10.8 L, Hct 34.4 L, MCV 99.4 H, MCH 31.2, MCHC 31.4 L, RDW Std Deviation 53.8 H, RDW Coeff of Aubrey 14.9 H, Plt Count 226, MPV 10.6, Immature Gran % (Auto) 1.200 H, Neut % (Auto) 73.8 H, Lymph % (Auto) 8.1 L, Bladen % (Auto) 10.4 H, Eos % (Auto) 6.0 H, Baso % (Auto) 0.5, Absolute Neuts (auto) 4.8, Absolute Lymphs (auto) 0.53 L, Nucleated RBC % 0, Differential Comment SCANNED, Sodium 139, Potassium 4.4, Chloride 106, Carbon Dioxide 29.0, Anion Gap 4 L, BUN 14, Creatinine 1.04 H, Estim Creat Clear Calc 39.07, Est GFR (MDRD) Af Amer 68, Est GFR (MDRD) Non-Af 56 L, BUN/Creatinine Ratio 13.5, Glucose 95, Calcium 8.4 L, Total Bilirubin 0.80, AST 100 H, ALT 133 H, Alkaline Phosphatase 168 H, Total Protein 6.3 L, Albumin 2.3 L, Globulin 4.0, Albumin/Globulin Ratio 0.6 L 08/20/23 09:58: POC Glucose 80 08/20/23 12:03: POC Glucose 94 Micro: Microbiology 08/13/23 16:20 Urine Catheter - Catheter Urine Culture - Final ESBL Escherichia coli Physical Exam Narrative Feeling better, appetite improved, no fever Const alert and no apparent distress General Appearance: cooperative Resp normal air movement and clear to auscultation bilaterally Cardio regular rate and regular rhythm GI soft to palpation, non-tender and non-distended Extremity General Extremity: Negative for edema Skin no rashes or lesions noted Assessment & Plan Assessment/Plan (1) Choledocholithiasis: (2) Elevated transaminase level: (3) Complicated urinary tract infection: (4) Encephalopathy acute: PLAN: Plan Patient is a 68-year-old lady admitted with altered mental status. An assessment of acute encephalopathy secondary to infectious encephalopathy from cystitis made. Patient was also found to have elevated transaminases thought to be secondary to common bile duct stone. Status post ERCP with stone removal and stent placement. I will put her on lactated Ringer's. It is a possibility that she has some local inflammation from the stent and contrast used during the procedure. Hopefully with administration of IV fluids with stents typical treatment that she was started to get better regarding pain. She is tolerating a diet at this. Continue to monitor. She is feeling better and is tolerating a normal diet. Differential diagnosis for her increase in LFTs could be medications, sludge in the stent or a proximal common bile duct stone it fell down and clogged the stent. We will continue to trend her LFTs. If they continue to go up and she would likely need a stent exchange with balloon sweep of the common bile duct. Her LFTs are trending down. She most likely had some mild sludge. She will need outpatient follow-up for stent removal or exchange in approximately 2 to 3 months. Charges/Coding Visit Charges Inpatient E&M: 76401 Subs Hosp L3
[2023-08-20 08:04] LABS: Absolute Lymphocyte Count 0.53 X10^3/uL (0.83-4.51); Absolute Neutrophil Count 4.8 X10^3/uL (2.0-7.7); Basophil# 0.03 X10^3/uL; Basophil% 0.5 % (0-1); Eosinophil# 0.39 X10^3/uL; Hematocrit 34.4 % (37-47); Hemoglobin 10.8 g/dL (12.0-15.0); Lymphocyte # 0.53 X10^3/ul (0.83-4.51); Lymphocyte % 8.1 % (19-41); Mean Corp Hgb Conc 31.4 g/dL (32-36); Mean Corpuscular Hgb 31.2 pg (27.0-32.0); Mean Corpuscular Volume 99.4 fL (81-99); Mean Platelet Vol. 10.6 fl (6.2-12.0); Monocyte# 0.68 X10^3/uL; Monocyte% 10.4 % (0-10); NRBC Flagged by Analyzer 0 % (0-5); Neutrophil # 4.83 X10^3/uL (2.7-7.7); Neutrophil % 73.8 % (47-70); POSITIVE DIFFERENTIAL YES; Platelet Count 226 K/mm3 (150-450); RBC Distribution Width CV 14.9 % (11.6-14.6); RBC Distribution Width SD 53.8 fl (35.1-43.9); Red Blood Count 3.46 M/mm3 (4.2-5.4); White Blood Count 6.5 K/mm3 (4.4-11.0)
[2023-08-20 08:40] VITALS: O2SAT 96
[2023-08-20 08:47] LABS: Differential Indicated SCAN CRITERIA MET
--- NOTE | 2023-08-20 09:07 | NURSING ---
pt. POC glucose 97 @ 13:28 08/19- Pt. ate only approx. 10% of her dinner. POC glucose 52 @ 04:51 on 08/20- Pt. showing no signs of hypoglycemia except for drowsiness, but pt. was awoken for BS check. pt. given 8 oz. orange juice to drink. Recheck of POC glucose @ 05:54 was 96.
[2023-08-20 10:05] VITALS: BP 119/108; PULSE 80; RESP 18; TEMP 36.4; O2SAT 100
[2023-08-20] MEDS: Ranolazine 500 MG Tablet PO (10:06)
[2023-08-20] MEDS: Docusate Sodium 100 MG Capsule PO (10:06)
[2023-08-20 10:07] VITALS: PULSE 80
[2023-08-20] MEDS: Allopurinol 100 MG Tablet PO (10:07)
[2023-08-20] MEDS: DULoxetine Hcl 60 MG Capsule PO (10:07)
[2023-08-20] MEDS: Metoprolol Tartrate 50 MG Tablet PO (10:07)
[2023-08-20] MEDS: Polyethylene Glycol 3350 17 GM PACKET PO (10:07)
[2023-08-20] MEDS: guaiFENesin 600 MG Tablet PO (10:07)
[2023-08-20] MEDS: Loratadine 10 MG Tablet PO (10:07)
[2023-08-20] MEDS: Famotidine 20 MG Tablet PO (10:07)
[2023-08-20] MEDS: Cholecalciferol (VIT D3) 25 MCG TABLET (1,000 UNITS) 50 MCG PO (10:07)
[2023-08-20] MEDS: APIXABAN 5 MG TABLET PO (10:07)
[2023-08-20] MEDS: Clopidogrel Bisulfate 75 MG Tablet PO (10:07)
[2023-08-20] MEDS: cycloBENZAPRine HCl 10 MG Tablet PO (10:07)
[2023-08-20] MEDS: Meropenem 1 GM in 0.9% Normal Saline (100mL MB+) 100 ML IV (10:15)
[2023-08-20 10:55] LABS: Bedside Glucose 80 mg/dL (74-106)
[2023-08-20 11:11] LABS: Differential Comment SCANNED
[2023-08-20] MEDS: Ferrous Sulfate 325 MG Tablet PO (12:04)
[2023-08-20 12:24] LABS: Bedside Glucose 94 mg/dL (74-106)
--- NOTE | 2023-08-20 13:35 | PCM.PN.ID ---
Physical Exam Narrative Feeling better, appetite improved, no fever Const alert and no apparent distress General Appearance: cooperative Resp normal air movement and clear to auscultation bilaterally Cardio regular rate and regular rhythm GI soft to palpation, non-tender and non-distended Extremity General Extremity: Negative for edema Skin no rashes or lesions noted ID ID: Route of nutrition/ use of supplements: [] Nutritional Intake: [] IV Site: [] Maradiaga Catheter: [] Assessment & Plan Assessment/Plan (1) Complicated urinary tract infection: PLAN: Ucx with esbl ecoli uti. MRCP shows bile duct dilation, ERCP done 08/16. On naila. Will stop today. LFTs improved. Will follow (2) Encephalopathy acute: (3) Common bile duct dilatation:
[2023-08-20] MEDS: busPIRone 5 MG Tablet 10 MG PO (14:31)
--- NOTE | 2023-08-20 15:21 | CASEMGMT ---
BLAKE called Keara binder caser with [facility] and left her a voice mail letting her know patient will be discharged home with resumption of her regular services. Charley Mariano RECORDS COORDINATOR LUAN
--- NOTE | 2023-08-20 15:26 | DCINST_ITS ---
Discharge Instructions Diet Discharge Diet: - (Cardiac diet) Activity Discharge Activity: Use Walker and - (Increase activity as tolerated) Follow Up Care Test Results: Test results from this visit will be discussed in further detail at your follow- up appointment, if applicable. Discharge Plan Admission Admit Date/Time: 08/13/23 19:25 Primary Reason for Your Visit: Right upper quadrant pain and confusion Attending Provider: Reyna Champagne Primary Care Provider: Bhupendra Oliveira Consulting Providers: Yvon Wilson; Syed Montanez; Yvon Hogan Instructions Patient Instructions: ED Fall Prevention Additional Instructions / Restrictions: DISCHARGE INSTRUCTIONS PLEASE READ *Please take this with you to your next doctors appointment* -You will need to follow-up with Dr. Lewis with GI in his office upon discharge. Please call his office to schedule your hospital follow-up appointment (ph. [phone]) -Continue your Eliquis and Plavix but you do not need to take aspirin at this time. Would advise you continue to follow-up with your stringing machine tender -Resume your potassium and Lasix on Friday, Would recommend lab work ( BMP ) to check your potassium and kidney function early next week through your primary care physician's office. Please call their office upon discharge to obtain order for lab work. -Due to several low blood sugars your long-acting insulin has been decreased to 45 units, will be important to continue to monitor your glucose and to hold your long-acting insulin if your glucose is less than 100 or if there is any concern that giving yourself the insulin will make you hypoglycemic. Additionally would hold any of your short acting insulin if your glucose is less than 100 before eating or if you are not planning on eating a meal with a regular carb consistent meals are encouraged. It is very likely you will need further monitoring and adjustment of your insulin moving forward so please monitor this closely and log your glucoses and follow-up closely with your primary care physician -Your metoprolol was decreased to 50 mg twice daily and you are no longer taking your isosorbide mononitrate based on your blood pressure and heart rates. These also may need further adjusting in the future please follow-up with your primary care physician upon discharge -Please call your primary care provider's office upon discharge to schedule a hospital follow up within 1 week. -For any concerning signs or symptoms please call 911 or proceed to the nearest emergency department Discharge Orders/Prescriptions Prescriptions: Continued allopurinol 100 mg tablet 100 mg PO DAILY buspirone 10 mg tablet 10 mg PO BID Patient Comments: PER PHARMACY PT TAKES 1 TAB (10 MG) IN THE MORNING AND AFTERNOON AND TAKES 1.5 TAB (15 MG) IN THE EVENING Rx Instructions: PER PHARMACY PT TAKES 1 TAB (10 MG) IN THE MORNING AND AFTERNOON AND TAKES 1.5 TAB (15 MG) IN THE EVENING Saline Mist 0.65 % aerosol,spray 2 spray intranasal TID PRN ranolazine 500 mg tablet extended release 12 hr 500 mg PO BID Qty: 60 11RF levothyroxine 100 MCG tablet 100 mcg PO DAILY Patient Comments: thyroid duloxetine 60 mg capsule,delayed release(DR/EC) 60 mg PO DAILY Patient Comments: mental health ascorbic acid (vitamin C) 500 MG tablet 500 mg PO DAILY@1700 Patient Comments: Supplement fexofenadine 180 mg tablet 180 mg PO DAILY cholecalciferol (vitamin D3) 50 MCG capsule 2,000 unit PO DAILY ferrous sulfate 325 mg (65 mg iron) Tablet 325 mg PO DAILY amlodipine 5 mg tablet 5 mg PO DAILY albuterol sulfate 90 mcg/actuation HFA aerosol inhaler 2 puff INHALATION PRN PRN (Reason: COPD) alendronate 70 mg tablet 70 mg PO TU buspirone 10 mg tablet 15 mg PO QHS Patient Comments: PER PHARMACY PT TAKES 1 TAB (10 MG) IN THE MORNING AND AFTERNOON AND TAKES 1.5 TAB (15 MG) IN THE EVENING Rx Instructions: PER PHARMACY PT TAKES 1 TAB (10 MG) IN THE MORNING AND AFTERNOON AND TAKES 1.5 TAB (15 MG) IN THE EVENING nystatin [Nyamyc] 100,000 unit/gram powder 1 applic TOPICAL TID PRN triamcinolone acetonide 0.1 % cream 1 applic TOPICAL DAILY PRN cyclobenzaprine 10 mg tablet 10 mg PO BID clopidogrel 75 mg tablet 75 mg PO DAILY Qty: 30 1RF insulin lispro 100 unit/mL insulin pen 14 unit SC LUNCH Qty: 15 0RF Rx Instructions: hold if glucose <100 insulin lispro 100 unit/mL insulin pen 14 unit SC BREAKFAST Qty: 15 0RF Rx Instructions: hold if glucose <100 insulin lispro 100 unit/mL insulin pen 24 unit SC DINNER Qty: 15 0RF Rx Instructions: hold if glucose <100 nitroglycerin 0.4 mg tablet, sublingual 0.4 mg sublingual Q5-15M PRN (Reason: chest pain) Qty: 25 3RF Eliquis 5 mg tablet 5 mg PO BID Qty: 60 11RF famotidine 20 mg tablet 20 mg PO DAILY Qty: 30 11RF Changed metoprolol tartrate 100 mg tablet 50 mg PO BID Qty: 30 0RF insulin glargine [Lantus Solostar U-100 Insulin] 100 unit/mL (3 mL) insulin pen 45 unit SC BID Qty: 15 0RF Held potassium chloride 10 mEq tablet extended release 10 meq PO DAILY Hold Instructions: Resume on 08/23/23. atorvastatin 40 MG tablet 40 mg PO QHS Hold Instructions: Resume on 08/23/23. Patient Comments: cholesterol furosemide 20 MG tablet 20 mg PO BID Hold Instructions: Resume on 08/23/23. Discontinued oxycodone 5 mg tablet 5 mg PO Q8H aspirin 81 mg tablet,delayed release (DR/EC) 81 mg PO DAILY isosorbide mononitrate 120 mg tablet extended release 24 hr 120 mg PO DAILY Qty: 30 12RF Referrals / Follow Up: Bhupendra Oliveira MD [Primary Care Provider] - Within 1 Week Jeff Lewis DO [Med Staff - Active Staff] - ( -You will need to follow-up with Dr. Lewis with GI in his office upon discharge. Please call his office to schedule your hospital follow-up appointment (ph. [phone])) Disposition Disposition (needs filled in before D/C Order can be placed): Home Health Service
[2023-08-20 15:40] VITALS: BP 106/69; PULSE 105; RESP 18; TEMP 37.2; O2SAT 100
--- NOTE | 2023-08-20 15:49 | DS.PCM_ITS ---
Providers Date of Admission: 08/13/23 Date of Discharge: 08/20/23 Primary Care Physician: Dr. Bhupendra Oliveira MD Consultations 08/14/23 02:07 Consult: Gastroenterology Routine Consulting Provider: [facility] Reason for Consult: Gallbladder ultrasound suggetive of CBD stone with hypertransaminasemia. EMERGENT Consult: No Notified: Yes Date Notified: 08/14/23 Time Notified: 09:45 Method of Notification: Text Method of Consult:: In-Person 08/15/23 10:24 Consult: Infectious Disease Routine Consulting Provider: Syed Montanez Reason for Consult: ESBL Ecoli UTI EMERGENT Consult: No Notified: Yes Date Notified: 08/15/23 Time Notified: 10:34 Method of Notification: Text Reason For Visit: SUSPECTED COMMON BILE DUCT STONE, UTI Diagnosis Discharge Diagnosis (1) Complicated urinary tract infection: Status: Acute Code(s): N39.0 - Urinary tract infection, site not specified (2) Encephalopathy acute: Status: Acute Code(s): G93.40 - Encephalopathy, unspecified (3) Common bile duct dilatation: Status: Acute Code(s): K83.8 - Other specified diseases of biliary tract Plan #Transaminitis secondary to choledocholithiasis-Status post ERCP 08/16/2023 #Paroxysmal atrial fibrillation #Acute metabolic encephalopathy secondary to ESBL UTI- resolved #Hypothyroidism #Type 2 diabetes mellitus #Anxiety #Coronary artery disease -Status post PCI 2003 and 2002, additionally patient had NE with recent in-stent stenosis 06/04/2023 -[id number] w/2.25 x 18 mm Resolute Jorge RX SU, PTCA alone to in-stent restenosis D1 06/04/23 Medications at Discharge Home Medications atorvastatin 40 mg tablet 40 mg PO QHS CHOLESTEROL LOWERING 02/03/18 levothyroxine 100 mcg tablet 100 mcg PO DAILY THYROID 02/03/18 ascorbic acid (vitamin C) 500 mg tablet 500 mg PO DAILY@1700 supplement 05/17/18 potassium chloride 10 mEq tablet,extended release 10 meq PO DAILY supplement 06/08/19 allopurinol 100 mg tablet 100 mg PO DAILY gout 08/11/19 furosemide 20 mg tablet 20 mg PO BID FLUID 10/25/20 cholecalciferol (vitamin D3) 50 mcg (2,000 unit) capsule 2,000 unit PO DAILY SUPPLEMENT 12/13/20 buspirone 10 mg tablet 10 mg PO BID depression 06/12/22 duloxetine 60 mg capsule,delayed release 60 mg PO DAILY MENTAL HEALTH 06/12/22 fexofenadine 180 mg tablet 180 mg PO DAILY ALLERGIES 06/12/22 sodium chloride 0.65 % nasal spray aerosol (Saline Mist) 2 spray intranasal TID PRN ALLERGIES 06/12/22 nitroglycerin 0.4 mg sublingual tablet 0.4 mg sublingual Q5-15M PRN chest pain #25 tabs 10/21/22 albuterol sulfate 90 mcg/actuation aerosol inhaler 2 puff inhalation PRN PRN COPD 12/12/22 amlodipine 5 mg tablet 5 mg PO DAILY BP 12/12/22 ferrous sulfate 325 mg (65 mg iron) tablet 325 mg PO DAILY SUPPLEMENT 12/12/22 alendronate 70 mg tablet 70 mg PO TU BONES 06/03/23 buspirone 10 mg tablet 15 mg PO QHS 06/03/23 nystatin 100,000 unit/gram topical powder ([facility]) 1 applic topical TID PRN SKIN 06/03/23 triamcinolone acetonide 0.1 % topical cream 1 applic topical DAILY PRN SKIN 06/03/23 ranolazine 500 mg tablet,extended release,12 hr 500 mg PO BID #60 tabs 07/02/23 apixaban 5 mg tablet (Eliquis) 5 mg PO BID #60 tabs 08/12/23 famotidine 20 mg tablet 20 mg PO DAILY #30 tabs 08/12/23 cyclobenzaprine 10 mg tablet 10 mg PO BID 08/13/23 clopidogrel 75 mg tablet 75 mg PO DAILY Pt told me today she ran out 4 days ago! #30 tabs 08/20/23 insulin glargine 100 unit/mL (3 mL) subcutaneous pen (Lantus Solostar U-100 Insulin) 45 unit (0.45 mL) subcut BID DM #15 mL 08/20/23 insulin lispro 100 unit/mL subcutaneous pen 14 unit (0.14 mL) subcut BREAKFAST DIABETES #15 mL 08/20/23 insulin lispro 100 unit/mL subcutaneous pen 14 unit (0.14 mL) subcut LUNCH DIABETES #15 mL 08/20/23 insulin lispro 100 unit/mL subcutaneous pen 24 unit (0.24 mL) subcut DINNER DIABETES #15 mL 08/20/23 metoprolol tartrate 100 mg tablet 50 mg (1/2 x 100 mg) PO BID Heart Rate #30 tabs 08/20/23 Hospital Course Summary of Care Provided Minutes Spent on Discharge: 31 Hospital Course: RUI PANDA, is a 68 F with a past with a past medical history of essential hypertension, hyperlipidemia, hypothyroidism, DM-2; of unknown control, obesity; with a BMI of 38.4 this admission, PARESH; noncompliant with CPAP, history of Paroxysmal Atrial Fibrillation; on Apixaban, history of CAD; s/p NE and stent (2003) and recent in-stent stenosis (06/04/2023), history of CHF, history of DVT/PE, history of tobacco abuse (quit 2000); with subsequent COPD, history of cholecystectomy, history of cervical cancer, CKD; stage III, OA; with chronic back pain, chronic anemia, RLS, GERD, history of UTI and depression who presen mabel to [facility] 08/13/2023 complaining of chest pain, RUQ pain, confusion and agitation. She is found to have transaminitis and choledocholithiasis and had ERCP 08/16/2023 with stone removal and duct sweep. ID was consulted due to ESBL UTI which was felt to be the cause of her initial metabolic encephalopathy when she was on Merrem which also would cover any gallbladder source. Patient improved and finished her course of antibiotics. She had a brief increase in LFTs however pain was completely resolved and they trended back down, possibly had some mild sludge the patient doing much better today. Reports on day of discharge that her breathing is at baseline, has had slight cough but no fever or elevation white blood cell count and no other signs or symptoms consistent with pneumonia or bacterial respiratory infection. Constipation resolved and abdominal pain resolved. Patient worked with physical therapy on day of discharge and did fairly well and patient and daughter comfortable with patient discharge home. Discharge instructions as follows: -You will need to follow-up with Dr. Lewis with [facility] in his office upon discharge. Please call his office to schedule your hospital follow-up appointment (ph. [phone]) -Continue your Eliquis and Plavix but you do not need to take aspirin at this time. Would advise you continue to follow-up with your enrollment management director -Resume your potassium and Lasix on Friday, Would recommend lab work ( BMP ) to check your potassium and kidney function early next week through your primary care physician's office. Please call their office upon discharge to obtain order for lab work. -Due to several low blood sugars your long-acting insulin has been decreased to 45 units, will be important to continue to monitor your glucose and to hold your long-acting insulin if your glucose is less than 100 or if there is any concern that giving yourself the insulin will make you hypoglycemic. Additionally would hold any of your short acting insulin if your glucose is less than 100 before eating or if you are not planning on eating a meal with a regular carb consistent meals are encouraged. It is very likely you will need further monitoring and adjustment of your insulin moving forward so please monitor this closely and log your glucoses and follow-up closely with your primary care physician -Your metoprolol was decreased to 50 mg twice daily and you are no longer taking your isosorbide mononitrate based on your blood pressure and heart rates. These also may need further adjusting in the future please follow-up with your primary care physician upon discharge -Please call your primary care provider's office upon discharge to schedule a hospital follow up within 1 week. -For any concerning signs or symptoms please call 911 or proceed to the nearest emergency department Physical Exam Narrative General: Alert, no apparent distress HEENT: Atraumatic, normocephalic Eyes: Anicteric, normal conjunctiva, extraocular movements grossly intact Neck: Supple Respiratory: Somewhat diminished at the bases, suspect in part due to habitus, n ormal respiratory effort Cardiovascular: Regular rate GI: Soft, nondistended, hypoactive bowel sounds, no rebound, guarding, rigidity Extremities: No edema Musculoskeletal: Moving all extremities Neuro: No overt focal neurological deficits Skin: No rashes appreciated Psych: Overall Weight / BMI Weight Weight: 88.7 kg Body Mass Index (BMI) 36.9 ABG / Lab / Microbiology Data 08/20/23 06:20 08/20/23 06:20 Laboratory: Laboratory Results - last 24 hr 08/19/23 17:27: POC Glucose 110 H 08/19/23 21:12: POC Glucose 136 H 08/19/23 23:28: POC Glucose 97 08/20/23 04:51: POC Glucose 52 L 08/20/23 05:54: POC Glucose 96 08/20/23 06:20: WBC 6.5, RBC 3.46 L, Hgb 10.8 L, Hct 34.4 L, MCV 99.4 H, MCH 31.2, MCHC 31.4 L, RDW Std Deviation 53.8 H, RDW Coeff of Aubrey 14.9 H, Plt Count 226, MPV 10.6, Immature Gran % (Auto) 1.200 H, Neut % (Auto) 73.8 H, Lymph % (Auto) 8.1 L, [place] % (Auto) 10.4 H, Eos % (Auto) 6.0 H, Baso % (Auto) 0.5, Absolute Neuts (auto) 4.8, Absolute Lymphs (auto) 0.53 L, Nucleated RBC % 0, Differential Comment SCANNED, Sodium 139, Potassium 4.4, Chloride 106, Carbon Dioxide 29.0, Anion Gap 4 L, BUN 14, Creatinine 1.04 H, Estim Creat Clear Calc 39.07, Est GFR (MDRD) Af Amer 68, Est GFR (MDRD) Non-Af 56 L, BUN/Creatinine Ratio 13.5, Glucose 95, Calcium 8.4 L, Total Bilirubin 0.80, AST 100 H, ALT 133 H, Alkaline Phosphatase 168 H, Total Protein 6.3 L, Albumin 2.3 L, Globulin 4.0, Albumin/Globulin Ratio 0.6 L 08/20/23 09:58: POC Glucose 80 08/20/23 12:03: POC Glucose 94 Microbiology: Microbiology 08/13/23 16:20 Urine Catheter - Catheter Urine Culture - Final ESBL Escherichia coli D/C Instructions Discharge Diet: - (Cardiac diet) Meaningful Use Info Meaningful Use Diagnoses (Choose all that apply): None applicable Discharge Plan Admission Admit Date/Time: 08/13/23 19:25 Primary Reason for Your Visit: Right upper quadrant pain and confusion Attending Provider: Reyna Champagne Primary Care Provider: Bhupendra Oliveira Consulting Providers: Yvon Wilson; Syed Montanez; Yvon Hogan Instructions Patient Instructions: ED Fall Prevention Additional Instructions / Restrictions: DISCHARGE INSTRUCTIONS PLEASE READ *Please take this with you to your next doctors appointment* -You will need to follow-up with Dr. Lewis with [facility] in his office upon discharge. Please call his office to schedule your hospital follow-up appointment (ph. [phone]) -Continue your Eliquis and Plavix but you do not need to take aspirin at this time. Would advise you continue to follow-up with your enrollment management director -Resume your potassium and Lasix on Friday, Would recommend lab work ( BMP ) to check your potassium and kidney function early next week through your primary care physician's office. Please call their office upon discharge to obtain order for lab work. -Due to several low blood sugars your long-acting insulin has been decreased to 45 units, will be important to continue to monitor your glucose and to hold your long-acting insulin if your glucose is less than 100 or if there is any concern that giving yourself the insulin will make you hypoglycemic. Additionally would hold any of your short acting insulin if your glucose is less than 100 before eating or if you are not planning on eating a meal with a regular carb consistent meals are encouraged. It is very likely you will need further monitoring and adjustment of your insulin moving forward so please monitor this closely and log your glucoses and follow-up closely with your primary care physician -Your metoprolol was decreased to 50 mg twice daily and you are no longer taking your isosorbide mononitrate based on your blood pressure and heart rates. These also may need further adjusting in the future please follow-up with your primary care physician upon discharge -Please call your primary care provider's office upon discharge to schedule a hospital follow up within 1 week. -For any concerning signs or symptoms please call 911 or proceed to the nearest emergency department Discharge Orders/Prescriptions Prescriptions: Continued allopurinol 100 mg tablet 100 mg PO DAILY buspirone 10 mg tablet 10 mg PO BID Patient Comments: PER PHARMACY PT TAKES 1 TAB (10 MG) IN THE MORNING AND AFTERNOON AND TAKES 1.5 TAB (15 MG) IN THE EVENING Rx Instructions: PER PHARMACY PT TAKES 1 TAB (10 MG) IN THE MORNING AND AFTERNOON AND TAKES 1.5 TAB (15 MG) IN THE EVENING Saline Mist 0.65 % aerosol,spray 2 spray intranasal TID PRN ranolazine 500 mg tablet extended release 12 hr 500 mg PO BID Qty: 60 11RF levothyroxine 100 MCG tablet 100 mcg PO DAILY Patient Comments: thyroid duloxetine 60 mg capsule,delayed release(DR/EC) 60 mg PO DAILY Patient Comments: mental health ascorbic acid (vitamin C) 500 MG tablet 500 mg PO DAILY@1700 Patient Comments: Supplement fexofenadine 180 mg tablet 180 mg PO DAILY cholecalciferol (vitamin D3) 50 MCG capsule 2,000 unit PO DAILY ferrous sulfate 325 mg (65 mg iron) Tablet 325 mg PO DAILY amlodipine 5 mg tablet 5 mg PO DAILY albuterol sulfate 90 mcg/actuation HFA aerosol inhaler 2 puff INHALATION PRN PRN (Reason: COPD) alendronate 70 mg tablet 70 mg PO TU buspirone 10 mg tablet 15 mg PO QHS Patient Comments: PER PHARMACY PT TAKES 1 TAB (10 MG) IN THE MORNING AND AFTERNOON AND TAKES 1.5 TAB (15 MG) IN THE EVENING Rx Instructions: PER PHARMACY PT TAKES 1 TAB (10 MG) IN THE MORNING AND AFTERNOON AND TAKES 1.5 TAB (15 MG) IN THE EVENING nystatin [Nyamyc] 100,000 unit/gram powder 1 applic TOPICAL TID PRN triamcinolone acetonide 0.1 % cream 1 applic TOPICAL DAILY PRN cyclobenzaprine 10 mg tablet 10 mg PO BID clopidogrel 75 mg tablet 75 mg PO DAILY Qty: 30 1RF insulin lispro 100 unit/mL insulin pen 14 unit SC LUNCH Qty: 15 0RF Rx Instructions: hold if glucose <100 insulin lispro 100 unit/mL insulin pen 14 unit SC BREAKFAST Qty: 15 0RF Rx Instructions: hold if glucose <100 insulin lispro 100 unit/mL insulin pen 24 unit SC DINNER Qty: 15 0RF Rx Instructions: hold if glucose <100 nitroglycerin 0.4 mg tablet, sublingual 0.4 mg sublingual Q5-15M PRN (Reason: chest pain) Qty: 25 3RF Eliquis 5 mg tablet 5 mg PO BID Qty: 60 11RF famotidine 20 mg tablet 20 mg PO DAILY Qty: 30 11RF Changed metoprolol tartrate 100 mg tablet 50 mg PO BID Qty: 30 0RF insulin glargine [Lantus Solostar U-100 Insulin] 100 unit/mL (3 mL) insulin pen 45 unit SC BID Qty: 15 0RF Held potassium chloride 10 mEq tablet extended release 10 meq PO DAILY Hold Instructions: Resume on 08/23/23. atorvastatin 40 MG tablet 40 mg PO QHS Hold Instructions: Resume on 08/23/23. Patient Comments: cholesterol furosemide 20 MG tablet 20 mg PO BID Hold Instructions: Resume on 08/23/23. Discontinued oxycodone 5 mg tablet 5 mg PO Q8H aspirin 81 mg tablet,delayed release (DR/EC) 81 mg PO DAILY isosorbide mononitrate 120 mg tablet extended release 24 hr 120 mg PO DAILY Qty: 30 12RF Referrals / Follow Up: Bhupendra Oliveira MD [Primary Care Provider] - Within 1 Week Jeff Lewis DO [Med Staff - Active Staff] - ( -You will need to follow-up with Dr. Lewis with GI in his office upon discharge. Please call his office to schedule your hospital follow-up appointment (ph. [phone])) Disposition Disposition (needs filled in before D/C Order can be placed): Home Health Service Charges/Coding Visit Charges Inpatient E&M: 45508 Disch Hosp >30min
--- NOTE | 2023-08-20 16:17 | CASEMGMT ---
Patient had order for discharge. TOM ROCHA reviewed therapy progress, patient ambulated 22 feet standby. TOM ROCHA in to discuss needs at discharge, patient denied further needs. Patient to discharge home with resumption of C with [facility] for nursing and PT. TOM ROCHA called and left message with [facility] regarding discharge to home today and updated being sent through [facility]. TOM ROCHA updated discharge director of gift planning to send discharge paperwork to [facility]. TOM ROCHA called and updated daughter Maci, daughter had no further questions or concerns.
--- NOTE | 2023-08-20 16:36 | CASEMGMT ---
Discharge Planning Updated HH order and discharge instructions sent to [facility] via [facility]. Irene Mcghee, Discharge Planning Asst.
== END 2023-08-20 16:57 | disposition home health service (06) | DRG 444 ==
LOC: ED 18:20 → ICU 19:49 → PCU 08-14 17:10
PROVIDERS: Internal Medicine; Internal Medicine Gastroenterology; Admitting Provider Internal Medicine; Emergency Provider Emergency Medicine; PCP Family Medicine; Visit Provider Internal Medicine
PROC: 0FC98ZZ Extirpation of Matter from Common Bile Duct, Via Natural or Artificial Opening Endoscopic (ICD-10-PCS; CPT 43260; principal; 2023-08-16 15:00)
DX: K80.51 Calculus of bile duct without cholangitis or cholecystitis with obstruction (principal); G93.41 Metabolic encephalopathy; I13.0 Hypertensive heart and chronic kidney disease with heart failure and stage 1 through stage 4 chronic kidney disease, or unspecified chronic kidney disease; N30.00 Acute cystitis without hematuria; Z16.12 Extended spectrum beta lactamase (ESBL) resistance; I27.20 Pulmonary hypertension, unspecified; E11.22 Type 2 diabetes mellitus with diabetic chronic kidney disease; E03.9 Hypothyroidism, unspecified; E66.9 Obesity, unspecified; B96.20 Unspecified Escherichia coli [E. coli] as the cause of diseases classified elsewhere; I50.9 Heart failure, unspecified; N18.32 Chronic kidney disease, stage 3b; J44.9 Chronic obstructive pulmonary disease, unspecified; I48.0 Paroxysmal atrial fibrillation; Z79.4 Long term (current) use of insulin; E78.2 Mixed hyperlipidemia; M10.9 Gout, unspecified; I25.10 Atherosclerotic heart disease of native coronary artery without angina pectoris; M19.90 Unspecified osteoarthritis, unspecified site; G47.33 Obstructive sleep apnea (adult) (pediatric); K21.9 Gastro-esophageal reflux disease without esophagitis; K59.00 Constipation, unspecified; Z87.891 Personal history of nicotine dependence; Z90.49 Acquired absence of other specified parts of digestive tract; Z95.5 Presence of coronary angioplasty implant and graft; Z78.1 Physical restraint status; Z68.38 Body mass index [BMI] 38.0-38.9, adult; Z91.199 Patient's noncompliance with other medical treatment and regimen due to unspecified reason
CPT/HCPCS: 36415; 71046; 74018; 74181; 74330; 76000; 76705; 80048; 80053; 80061; 80076; 80307; 81001; 82140; 82962; 83036; 83605; 83690; 83735; 84100; 84443; 84484; 85025; 87077; 87086; 87088; 87186; 93005; 94640; 97110; 97162; 97166; 97530; 97535; 97802; 99285; J2185; J7120; P9612; A4216; J2405

== ENCOUNTER → 2023-10-13 | Outpatient (CLI) | payer MEDICARE, MEDICAID, SELFPAY ==
[2023-10-13 17:01] LABS: Absolute Lymphocyte Count 1.13 X10^3/uL (0.83-4.51); Absolute Neutrophil Count 4.6 X10^3/uL (2.0-7.7); Basophil# 0.04 X10^3/uL; Basophil% 0.6 % (0-1); Eosinophil# 0.27 X10^3/uL; Hematocrit 38.2 % (37-47); Hemoglobin 12.1 g/dL (12.0-15.0); Lymphocyte # 1.13 X10^3/ul (0.83-4.51); Lymphocyte % 16.6 % (19-41); Mean Corp Hgb Conc 31.7 g/dL (32-36); Mean Corpuscular Hgb 30.8 pg (27.0-32.0); Mean Corpuscular Volume 97.2 fL (81-99); Mean Platelet Vol. 10.5 fl (6.2-12.0); Monocyte# 0.67 X10^3/uL; Monocyte% 9.9 % (0-10); NRBC Flagged by Analyzer 0 % (0-5); Neutrophil # 4.62 X10^3/uL (2.7-7.7); Platelet Count 188 K/mm3 (150-450); RBC Distribution Width CV 14.8 % (11.6-14.6); Red Blood Count 3.93 M/mm3 (4.2-5.4); White Blood Count 6.8 K/mm3 (4.4-11.0)
[2023-10-13 17:05] LABS: Hemoglobin A1c 7.4 % (3.8-5.6)
[2023-10-13 17:16] LABS: Microalbumin,Random Urine 11.2 mg/L (NO RANGE EST.); Microalbumin:Creatinine Ratio 22.6 mg/g CRE (<30 mg/g CRE)
[2023-10-13 17:54] LABS: ALB/GLOB Ratio 0.8 RATIO (0.9-2.4); AST(SGOT) 17 U/L (15-37); Alanine Aminotransfer ALT/SGPT 17 U/L (13-56); Albumin, Serum 3.2 g/dL (3.2-5.0); Alkaline Phosphatase 70 U/L (45-117); Anion Gap 5 (5-15); BUN 23 mg/dL (7-18); BUN/Creat Ratio 14.2 RATIO (10-20); Calcium,Total 8.9 mg/dL (8.5-10.1); Chloride 106 mmol/L (98-107); Cholesterol 198 mg/dL (200); Creatinine, Serum 1.62 mg/dL (0.55-1.02); EST Glomerular Filtration Rate 34 mL/min (>60); Est Glom Filt Rate - Afr Amer 41 mL/min (>60); Globulin 4.1 g/dL (2.2-4.2); Glucose 240 mg/dL (74-106); High Density Lipoprotein 52 mg/dL; Potassium 3.8 mmol/L (3.5-5.1); Protein, Total 7.3 g/dL (6.4-8.2); Sodium Level 141 mmol/L (136-145); Thyroid Stim Hormone (TSH) 3.22 uIU/mL (0.358-3.74); Triglycerides 311 mg/dL; Uric Acid 4.9 mg/dL (2.6-6.0); Very Low Density Lipoprotein 62 mg/dL (5-40)
[2023-10-13 18:48] LABS: Hepatitis C Antibody Non-Reactive (Nonreactive); Vitamin D,25 Hydroxy 58.4 ng/mL
== END | disposition home or self-care (01) ==
LOC: LAB 16:12
PROVIDERS: PCP Family Medicine; Referring Provider Family Medicine Geriatric Medicine; Visit Provider Family Medicine Geriatric Medicine
DX: E11.42 Type 2 diabetes mellitus with diabetic polyneuropathy (principal); E03.9 Hypothyroidism, unspecified; E78.5 Hyperlipidemia, unspecified; I10 Essential (primary) hypertension; D50.9 Iron deficiency anemia, unspecified; Z13.89 Encounter for screening for other disorder
CPT/HCPCS: 36415; 80053; 80061; 82043; 82306; 82570; 83036; 84443; 84550; 85025; 86803

== ENCOUNTER → 2023-10-20 | Outpatient (CLI) | payer MEDICARE, MEDICAID, SELFPAY ==
[2023-10-20 17:15] LABS: D-Dimer Quantitative (DVT/PE) < 0.27 FEU/ug/m (0.27-0.49)
[2023-10-20 17:45] LABS: Anion Gap 3 (5-15); BUN 19 mg/dL (7-18); BUN/Creat Ratio 14.8 RATIO (10-20); Calcium,Total 9.5 mg/dL (8.5-10.1); Chloride 103 mmol/L (98-107); Creatinine, Serum 1.28 mg/dL (0.55-1.02); EST Glomerular Filtration Rate 44 mL/min (>60); Est Glom Filt Rate - Afr Amer 53 mL/min (>60); Glucose 139 mg/dL (74-106); Potassium 3.8 mmol/L (3.5-5.1); Sodium Level 137 mmol/L (136-145)
== END | disposition home or self-care (01) ==
LOC: POLAB3 15:37
PROVIDERS: PCP Family Medicine; Visit Provider Family Medicine Geriatric Medicine
DX: I10 Essential (primary) hypertension (principal)
CPT/HCPCS: 36415; 80048; 85379

== ENCOUNTER → 2023-11-06 | Outpatient (CLI) | payer MEDICARE, MEDICAID, SELFPAY ==
--- NOTE | 2023-11-06 13:29 | BI_ITS ---
MAMMOGRAPHY - BILATERAL SCREENING REASON FOR EXAM: Female, 68 years old. Routine annual screening examination. PERTINENT HISTORY: Aunt with breast cancer. Remote right excisional breast biopsy. TECHNIQUE: Digital bilateral breast yamileth (3D mammographic acquisition) in the CC and MLO projections. 2-D mediolateral oblique (MLO) and craniocaudad (CC) views of both breasts were obtained. CAD: Full Field Digital Mammography with Computer Added Detection was performed. COMPARISON: Comparison is made with prior study dated April 02, 2019. FINDINGS: Breast Composition: The breasts are almost entirely fatty. There are no dominant masses or suspicious calcifications. No other significant abnormalities are identified. There has been no significant change since the prior study. BI/SCRN MAMM (CAD)W/YAMILETH BILAT IMPRESSION: Stable bilateral screening mammogram. Yearly follow-up mammogram recommended. (A) ASSESSMENT CATEGORY: BIRADS Category 1: Negative. A letter regarding these results will be sent to the patient by the facility within 30 days. Approximately 10% of breast cancers are not detected by mammography. A normal mammogram should not delay biopsy of a clinically suspicious abnormality. [id number] Electronically Signed: Bentley Montejo MD at 15:26 EST ,
== END | disposition home or self-care (01) ==
LOC: OPBI 13:28
PROVIDERS: PCP Family Medicine Geriatric Medicine; Referring Provider Family Medicine Geriatric Medicine; Visit Provider Family Medicine Geriatric Medicine
DX: Z12.31 Encounter for screening mammogram for malignant neoplasm of breast (principal)
CPT/HCPCS: 77063; 77067

== ENCOUNTER → 2023-11-11 | Outpatient (CLI) | payer MEDICARE, MEDICAID, SELFPAY ==
--- NOTE | 2023-11-11 10:02 | VDLE_ITS ---
Reason For Study: Bilateral leg swelling RIGHT LEFT GSV is normal. GSV is normal. CFV is compressible, spontaneous, phasic, CFV is compressible, spontaneous, phasic, competent and demonstrates normal competent, and demonstrates normal augmentation. augmentation. FV is compressible, spontaneous, phasic, FV is compressible, spontaneous, phasic, competent and demonstrates normal competent and demonstrates normal augmentation. augmentation. POP V is compressible, spontaneous, phasic, POP V is compressible, spontaneous, phasic, competent and demonstrates normal competent and demonstrates normal augmentation. augmentation. T/P Trunk is compressible. T/P Trunk is compressible. PTV is compressible. PTV is compressible. RT PerV is compressible. LT PerV is compressible. Procedure This is a venous duplex using B-mode, color flow and spectral Doppler. Exam performed in department. A preliminary report was called and/or faxed to Dr. Murrieta. VL/Venous Duplex US - Devon Extrem Interpretation Summary No evidence for acute deep venous thrombosis bilateral lower extremities with p atent and compressible bilateral great saphenous veins. Ordering Physician: Dylon Murrieta Chi Referring Physician: Dylon Murrieta Chi Performed By: Joyce Ash RVT
== END | disposition home or self-care (01) ==
LOC: CVS 10:01
PROVIDERS: PCP Family Medicine Geriatric Medicine; Referring Provider Family Medicine Geriatric Medicine; Visit Provider Family Medicine Geriatric Medicine
DX: M79.89 Other specified soft tissue disorders (principal)
CPT/HCPCS: 93970

== ENCOUNTER → 2023-11-18 | Outpatient (CLI) | payer MEDICARE, MEDICAID, SELFPAY ==
--- NOTE | 2023-11-18 16:30 | RAD_ITS ---
EXAM: XR LUMBOSACRAL SPINE, 4 OR 5 VIEWS CLINICAL INDICATION: PAIN TECHNIQUE: Frontal, lateral and bilateral oblique views of the lumbar spine. COMPARISON: No relevant prior studies available. FINDINGS: VERTEBRAE: Bony structures appear diffusely osteoporotic. No acute fracture or subluxation. DISC SPACES: No acute findings. No significant disc space narrowing. Facet arthropathy noted at L4-5 and L5-S1. SOFT TISSUES: Multiple surgical clips are noted within the midabdomen and pelvis. GASTROINTESTINAL TRACT: Normal bowel gas pattern. TUBES, LINES AND DEVICES: An endobiliary stent catheter is in place. RAD/L/S Spine Min 4 Views IMPRESSION: No acute abnormality of the lumbar spine. Electronically Signed: Dannie Handley MD at 13:54 EST ,
== END | disposition home or self-care (01) ==
LOC: MTRAD 16:27
PROVIDERS: PCP Family Medicine Geriatric Medicine; Referring Provider Anesthesiology Pain Medicine; Visit Provider Anesthesiology Pain Medicine
DX: M51.37 Other intervertebral disc degeneration, lumbosacral region (principal)
CPT/HCPCS: 72110

== ENCOUNTER 2023-11-27 09:50 | Day surgery (SDC) | payer MEDICARE, MEDICAID, SELFPAY ==
[2023-11-27] VITALS (11 sets, daily range): BP systolic 118–152; BP diastolic 61–92; PULSE 93–102; RESP 16–17; TEMP 36.1–36.2; O2SAT 91–100; BMI 36.2
--- NOTE | 2023-11-27 09:45 | RAD_ITS ---
STUDY: ERCP REASON FOR EXAM: Female, 68 years old. ERCP STENT PULL WITH BALLOON DILATION TECHNIQUE: 10 fluoroscopic images of ERCP were obtained on a C-arm. Fluoroscopic guidance was provided by a physician. Fluoroscopy time was 49.8 seconds. The radiation dose is 17.7 mGy. COMPARISON: Prior study dated: 08/16/2023 FINDINGS: Images demonstrate markedly dilated common bile duct. Previously noted common bile duct stent is not seen. Mild prominence of the intrahepatic biliary ducts. The examination was performed for documentation. RAD/ERCP Biliary/Pancreas IMPRESSION: ERCP as described above. Electronically Signed: Rudolph Fonseca MD at 8:13 EST ,
--- NOTE | 2023-11-27 10:07 | EKG12_ITS ---
Test Reason : preop Blood Pressure : / mmHG Vent. Rate : 093 BPM Atrial Rate : 214 BPM P-R Int : 000 ms QRS Dur : 078 ms QT Int : 374 ms P-R-T Axes : 000 -24 078 degrees QTc Int : 465 ms Atrial flutter with variable A-V block Nonspecific T wave abnormality Abnormal ECG No previous ECGs available Confirmed by Edwin Nowak ([id number]), newspaper editor YAN SUH ([id number]) on 12/02/2023 11:36:58 AM Referred By: Dylon Murrieta Confirmed By:Edwin Nowak
[2023-11-27] MEDS: Lactated Ringers 1,000 ML 15 ML IV (10:44)
--- NOTE | 2023-11-27 10:49 | PCM.HP.BLA ---
History and Physical Date of Admission: 11/27/23 Sepsis Details: RUI PANDA, is a 68 F who presents to the office today for HFU. *[facility] hospitalization 08.13.23-08.20.23 for management of UTI with acute encephalopathy choledocholithiasis with CBD dilation and transaminitis and chronic conditions a.fib, hypothyroid, DMII, anxiety, CAD. ?US RUQ 08.13.23?hepatic measurement 19.9cm with fatty infiltration; s/p cholecystectomy; marked CBD dilation; limited pancreatic visualization ?MRCP 08.15.23?ductal dilation, extrahepatic>intrahepatic, CBD 18mm with filling defect of lower common duct; simple renal cysts. ERCP 08.16.23?minor papilla not seen; markedly dilated biliary system with obstructing stone, sphincterotomy/balloon extraction; left main hepatic duct dilated; temporary stent in CBD. No specimens. OV 10.20.23 no show OV 2..- Pt stable since hospital visit. Still has some RUQ pain but is much better. Has nausea in the morning that is better when she eats. Says BM are irregular. Will have stools followed by constipation. ROS Const Constitutional: Positive for fatigue and weight change ENT ENT: No difficulty swallowing Cardio Cardiology: Positive for leg pain with exertion Gastro GI: Positive for abdominal pain, constipation, diarrhea, heartburn and nausea/dyspepsia; No belching, bloating, change in bowel habits, change in stool character, coffee ground emesis, cramping, difficulty swallowing, feeling full early, excessive flatus, incontinent of stools, Vomiting blood/hematemesis, Blood in stool, loose stools, Black,tarry stools, pain with swallowing, vomiting or other Musc Musculoskeletal: Positive for joint pain, back pain, muscle cramps, muscle weakness, stiffness, restless legs, leg pain at night and leg pain with exertion Skin Skin: No yellowing of the eye or itchy eyes Neuro Neurology: Positive for restless legs Psych Psychiatric: No anxiety and No depression Endo Endocrine: Positive for fatigue and weight change Aller/Imm Allergy/Immunologic: No itchy eyes Singh/Lymp Hematologic/Lymphatic: No easy bleeding or easy bruising Exam Const General: cooperative and comfortable Nutritional Appearance: average body habitus and well nourished [facility] Head: normal to inspection Ears: hearing grossly normal bilaterally Nose: external nose normal Face and sinus: normal facial exam Mouth: oral mucosae normal Throat: posterior oropharynx normal Eyes General: appearance normal, both eyes and all related structures Neck Neck: normal visual inspection Chest Chest palpation & inspection: normal inspection of the chest and normal palpation of entire chest wall Resp Effort & Inspection: normal respiratory effort Auscultation: Bilateral: Clear to Auscultation Cardio Palpation: normal PMI Rate: regular rate Rhythm: regular rhythm GI Inspection: normal to inspection Auscultation: normal bowel sounds Percussion: normal to percussion Palpation: no hepatosplenomegaly Skin General: no rashes or lesions noted Neuro General: patient alert Extrem General: normal to inspection Psych Affect: normal affect Quality Reporting Tobacco Screening ([facility] 138) Smoking Status: Former smoker Assessment and Plan Assessment and Plan (1) Choledocholithiasis: Status: Resolved Plan: 68 F with a past with a past medical history of essential hypertension, hyperlipidemia, hypothyroidism, DM-2; of unknown control, obesity; with a BMI of 38.4 this admission, PARESH; noncompliant with CPAP, history of Paroxysmal Atrial Fibrillation; on Apixaban, history of CAD; s/p TX and stent (2003) and recent in-stent stenosis (06/04/2023), history of CHF, history of DVT/PE, history of tobacco abuse (quit 2000); with subsequent COPD, history of cholecystectomy, history of cervical cancer, CKD; stage III, OA; with chronic back pain, chronic anemia, RLS, GERD, history of UTI and depression who presented to [facility] 08/13/2023 complaining of chest pain, RUQ pain, confusion and agitation. She is found to have transaminitis and choledocholithiasis and had ERCP 08/16/2023 with stone removal and duct sweep. ID was consulted due to ESBL UTI which was felt to be the cause of her initial metabolic encephalopathy when she was on Meropenem which also would cover any gallbladder source. Patient improved and finished her course of antibiotics. She had a brief increase in LFTs however pain was completely resolved and they trended back down, possibly had some mild sludge the patient doing much better today. She reports on day of discharge that her breathing is at baseline, has had slight cough but no fever or elevation white blood cell count and no other signs or symptoms consistent with pneumonia or bacterial respiratory infection. Constipation resolved and abdominal pain resolved. She is doing very well from a gi standpoint. I will schedule her for ERCP with stent removal. I have examined the patient and the H&P has been reviewed. There are no clinical changes since date of exam.
[2023-11-27 11:19] LABS: Bedside Glucose 162 mg/dL (74-106)
--- NOTE | 2023-11-27 11:39 | OP.ERCP_ITS ---
Patient Name: Tamia Figueroa Procedure Date: 11/27/2023 10:44 AM Date of : 1955 Age: 68 Procedure: ERCP Indications: Abdominal pain of suspected biliary origin, Bile duct stone(s), Stent removal Providers: Jeff Lewis DO Referring MD: Dylon Murrieta MD Medicines: Monitored Anesthesia Care Patient Profile: This is a 68 year old female. Refer to note in patient chart for documentation of history and physical. Patient has symptoms of acute right upper quadrant abdominal pain. Her most recent ERCP for stent was within the past three months. She is status post laparoscopic cholecystectomy within the past three months. Complications: No immediate complications. Procedure: Pre-Anesthesia Assessment: - Prior to the procedure, a History and Physical was performed, and patient medications and allergies were reviewed. The patient is competent. The risks and benefits of the procedure and the sedation options and risks were discussed with the patient. All questions were answered and informed consent was obtained. Patient identification and proposed procedure were verified by the physician in the pre-procedure area. Mental Status Examination: alert and oriented. Airway Examination: normal oropharyngeal airway and neck mobility. Respiratory Examination: clear to auscultation. CV Examination: normal. Prophylactic Antibiotics: The patient does not require prophylactic antibiotics. Prior Anticoagulants: The patient has taken no anticoagulant or antiplatelet agents. ASA Grade Assessment: III - A patient with severe systemic disease. After reviewing the risks and benefits, the patient was deemed in satisfactory condition to undergo the procedure. The anesthesia plan was to use monitored anesthesia care (MAC). Immediately prior to administration of medications, the patient was re-assessed for adequacy to receive sedatives. The heart rate, respiratory rate, oxygen saturations, blood pressure, adequacy of pulmonary ventilation, and response to care were monitored throughout the procedure. The physical status of the patient was re-assessed after the procedure. After obtaining informed consent, the scope was passed under direct vision. Throughout the procedure, the patient's blood pressure, pulse, and oxygen saturations were monitored continuously. The Duodenoscope was introduced through the mouth, and advanced to the duodenum and used to inject contrast into the bile duct and ventral pancreatic duct. The ERCP was accomplished without difficulty. The patient tolerated the procedure well. Scope In: 11:14:29 AM Scope Out: 11:29:33 AM Total Procedure Duration Time 0 hours 15 minutes 4 seconds Findings: The clay hoister film was normal. The esophagus was successfully intubated under direct vision. The scope was advanced to a normal major papilla in the descending duodenum without detailed examination of the pharynx, larynx and associated structures, and upper GI tract. The upper GI tract was grossly normal. The bile duct was deeply cannulated. Contrast was injected. I personally interpreted the bile duct and pancreatic duct images. There was brisk flow of contrast through the ducts. Image quality was excellent. Contrast extended to the entire biliary tree. A straight Roadrunner wire was passed into the biliary tree. A 5 mm biliary sphincterotomy was made with a traction (standard) sphincterotome using ERBE electrocautery. There was no post-sphincterotomy bleeding. The biliary tree was swept with a 15 mm balloon starting at the bifurcation. Sludge was swept from the duct. All stones were removed. One stent was removed from the biliary tree using a snare. The stent was found to be occluded via the water column test. Impression: - Choledocholithiasis was found. Complete removal was accomplished by biliary sphincterotomy and balloon extraction. - A biliary sphincterotomy was performed. - The biliary tree was swept. - One stent was removed from the biliary tree. Procedure Code(s): --- Professional --- 58769, Endoscopic retrograde cholangiopancreatography (ERCP); with removal of foreign body(s) or stent(s) from biliary/pancreatic duct(s) 91413, Endoscopic retrograde cholangiopancreatography (ERCP); with removal of calculi/debris from biliary/pancreatic duct(s) 31004, Endoscopic retrograde cholangiopancreatography (ERCP); with sphincterotomy/papillotomy 70706, 26, Combined endoscopic catheterization of the biliary and pancreatic ductal systems, radiological supervision and interpretation CPT copyright 2021 [employer]. All rights reserved. The codes documented in this report are preliminary and upon expenditure requisition clerk review may be revised to meet current compliance requirements. Jeff Lewis DO 11/27/2023 11:39:04 AM This report has been signed electronically. Number of Addenda: 0 Note Initiated On: 11/27/2023 10:44 AM
--- NOTE | 2023-11-27 11:40 | OP.CCLET_ITS ---
11/27/2023 Dylon Murrieta MD [id number] [place] [address] Re : ERCP procedure for Tamia Figueroa Dear Dr. Murrieta This procedure was performed on November. My impressions and recommendations are as follows: Impressions : - Choledocholithiasis was found. Complete removal was accomplished by biliary sphincterotomy and balloon extraction. - A biliary sphincterotomy was performed. - The biliary tree was swept. - One stent was removed from the biliary tree. Recommendations : My findings are described in the full procedure note, which is enclosed. If I can be of further assistance, please feel free to contact me at . Sincerely, Jeff Lewis, 11/27/2023 11:39:04 AM This report has been signed electronically.
== END 2023-11-27 14:01 | disposition home or self-care (01) ==
LOC: EN 09:53 → AC 09:54
PROVIDERS: PCP Family Medicine Geriatric Medicine; Referring Provider Family Medicine Geriatric Medicine; Visit Provider Internal Medicine Gastroenterology
PROC: (CPT 43260; principal; 2023-11-27 10:25)
DX: Z46.59 Encounter for fitting and adjustment of other gastrointestinal appliance and device (principal); J44.9 Chronic obstructive pulmonary disease, unspecified; E11.22 Type 2 diabetes mellitus with diabetic chronic kidney disease; I48.0 Paroxysmal atrial fibrillation; N18.30 Chronic kidney disease, stage 3 unspecified; I12.9 Hypertensive chronic kidney disease with stage 1 through stage 4 chronic kidney disease, or unspecified chronic kidney disease; E78.2 Mixed hyperlipidemia; E03.9 Hypothyroidism, unspecified; E66.9 Obesity, unspecified; Z68.38 Body mass index [BMI] 38.0-38.9, adult; Z79.01 Long term (current) use of anticoagulants; I25.10 Atherosclerotic heart disease of native coronary artery without angina pectoris; Z95.5 Presence of coronary angioplasty implant and graft; Z86.718 Personal history of other venous thrombosis and embolism; Z90.49 Acquired absence of other specified parts of digestive tract; K21.9 Gastro-esophageal reflux disease without esophagitis; Z87.891 Personal history of nicotine dependence; K80.50 Calculus of bile duct without cholangitis or cholecystitis without obstruction; Z79.899 Other long term (current) drug therapy; Z79.890 Hormone replacement therapy
CPT/HCPCS: 43262; 43264; 43275; 74330; 76000; 82962; 93005; J7120; J2405

== ENCOUNTER → 2024-01-13 | Outpatient (CLI) | payer MEDICARE, MEDICAID, SELFPAY ==
[2024-01-13 13:01] LABS: Absolute Lymphocyte Count 1.07 X10^3/uL (0.83-4.51); Absolute Neutrophil Count 3.7 X10^3/uL (2.0-7.7); Basophil# 0.03 X10^3/uL; Basophil% 0.5 % (0-1); Eosinophil# 0.17 X10^3/uL; Eosinophils% 3.1 % (0-5); Hematocrit 37.4 % (37-47); Hemoglobin 11.6 g/dL (12.0-15.0); Lymphocyte # 1.07 X10^3/ul (0.83-4.51); Lymphocyte % 19.4 % (19-41); Mean Corpuscular Hgb 29.7 pg (27.0-32.0); Mean Corpuscular Volume 95.9 fL (81-99); Mean Platelet Vol. 10.6 fl (6.2-12.0); Monocyte# 0.53 X10^3/uL; Monocyte% 9.6 % (0-10); NRBC Flagged by Analyzer 0 % (0-5); Neutrophil # 3.66 X10^3/uL (2.7-7.7); Neutrophil % 66.3 % (47-70); Platelet Count 202 K/mm3 (150-450); RBC Distribution Width CV 14.3 % (11.6-14.6); RBC Distribution Width SD 49.8 fl (35.1-43.9); White Blood Count 5.5 K/mm3 (4.4-11.0)
[2024-01-13 13:29] LABS: Vitamin D,25 Hydroxy 54.8 ng/mL
[2024-01-13 13:40] LABS: Hemoglobin A1c 6.5 % (3.8-5.6)
[2024-01-13 13:41] LABS: ALB/GLOB Ratio 0.8 RATIO (0.9-2.4); AST(SGOT) 13 U/L (15-37); Alanine Aminotransfer ALT/SGPT 13 U/L (13-56); Albumin, Serum 3.1 g/dL (3.2-5.0); Alkaline Phosphatase 62 U/L (45-117); Anion Gap 6 (5-15); BUN 18 mg/dL (7-18); BUN/Creat Ratio 14.8 RATIO (10-20); Calcium,Total 8.4 mg/dL (8.5-10.1); Chloride 113 mmol/L (98-107); Cholesterol 164 mg/dL (200); Creatinine, Serum 1.22 mg/dL (0.55-1.02); EST Glomerular Filtration Rate 47 mL/min (>60); Est Glom Filt Rate - Afr Amer 56 mL/min (>60); Glucose 151 mg/dL (74-106); High Density Lipoprotein 47 mg/dL; Potassium 4.4 mmol/L (3.5-5.1); Protein, Total 7.1 g/dL (6.4-8.2); Sodium Level 142 mmol/L (136-145); Thyroid Stim Hormone (TSH) 0.29 uIU/mL (0.358-3.74); Triglycerides 192 mg/dL; Very Low Density Lipoprotein 38 mg/dL (5-40)
[2024-01-13 16:30] LABS: M R Staph aureus DNA By PCR Negative (Negative); Staph aureus DNA By PCR POSITIVE (Negative)
[2024-01-13 16:31] LABS: Probe Check PASS; Specimen Processing Control PASS
== END | disposition home or self-care (01) ==
LOC: POLAB3 12:17
PROVIDERS: PCP Family Medicine Geriatric Medicine; Visit Provider Family Medicine Geriatric Medicine
DX: E11.65 Type 2 diabetes mellitus with hyperglycemia (principal); E55.9 Vitamin D deficiency, unspecified; E78.5 Hyperlipidemia, unspecified; I10 Essential (primary) hypertension; L03.116 Cellulitis of left lower limb; B95.62 Methicillin resistant Staphylococcus aureus infection as the cause of diseases classified elsewhere
CPT/HCPCS: 36415; 80053; 80061; 82306; 83036; 84443; 85025; 87070; 87077; 87186; 87205; 87640

== ENCOUNTER 2024-01-26 07:40 | Day surgery (SDC) | payer MEDICARE, MEDICAID, SELFPAY ==
[2024-01-26] MEDS: Lactated Ringers 1,000 ML 15 ML IV (08:21)
[2024-01-26 08:22] VITALS: BP 118/61; PULSE 62; RESP 18; TEMP 36.3; O2SAT 99; BMI 37.0
[2024-01-26 08:24] LABS: Bedside Glucose 156 mg/dL (74-106)
--- NOTE | 2024-01-26 09:18 | RAD_ITS ---
STUDY: X-RAY - LUMBAR SPINE REASON FOR EXAM: Female, 69 years old. Nerve block from L4 to S1 TECHNIQUE: 5 limited intraoperative view(s) of the lumbar spine were obtained. COMPARISON: None FINDINGS: 5 limited intraoperative views were performed as the patient is undergoing ablation from L4 to S1. No intraoperative complications noted. RAD/L/S Spine Min 4 Views IMPRESSION: No intraoperative complications noted during L4-S1 ablation Electronically Signed: Bebo Colorado MD at 13:19 EDT ,
[2024-01-26] MEDS: Lidocaine 1% (5 ml sdv) 5 ML Vial (09:22)
[2024-01-26] MEDS: Bupivacaine 0.25% 30 ML Vial (09:24)
[2024-01-26] MEDS: MethylPREDNISolone Acetate 80 MG/ML Vial (09:24)
[2024-01-26 09:30] VITALS: BP 107/74; BP 118/61; PULSE 71; RESP 16; TEMP 36.9; O2SAT 93
--- NOTE | 2024-01-26 09:31 | PCM.OPRPT ---
Report of Operation Date of Procedure: 01/26/24 Pre-Operative Diagnosis: Lumbosacral spondylosis, lumbosacral degenerative disc disease, lumbar facet arthropathy Post-Operative Diagnosis: Lumbosacral spondylosis, lumbosacral degenerative disc disease, lumbar facet arthropathy Description of Surgical Findings:: PROCEDURE PERFORMED: Bilateral lumbar medial branch block at L4, L5, and S1. ANESTHESIA: MAC. BLOOD LOSS: Minimal. COMPLICATIONS: None. DESCRIPTION OF PROCEDURE: History and physical of today was reviewed. Risks and benefits of the procedure were explained. The patient understood and agreed to proceed. Informed consent was obtained. IV inserted per routine protocol. The patient was taken to the operating room and placed in the prone position with a pillow positioned underneath the abdomen. The lower back area was prepped and draped in a sterile fashion using iodine x3. Under fluoroscopy guidance on AP view, the L4 through S1 vertebral bodies were visualized. The skin and subcutaneous tissue was anesthetized with approximately 5 mL of 1% lidocaine using a 25-gauge regular needle. Under direct visualization with fluoroscopy, at approximately 25-degree angle, starting on the left L4, ending on the right L4, passing through the L5 and S1 bilaterally, using a 22-gauge 3-1/2-inch spinal needle, the needle was advanced via the skin. The tip of the needle was maneuvered and directed towards the superior medial gutter of the transverse process at the vicinity of the medial branch. Once tip of the needle was in contact with the bone, the needle was pulled approximately 2 mm off the bone. After negative aspiration for blood or CSF and confirmation on AP, oblique as well as lateral view, a total of 12 mL of preservative-free 0.25% Marcaine with 80 mg of Depo-Medrol was injected in divided doses between those six levels. The needles were then removed intact. The patient experienced no sign or symptoms of intrathecal or intravascular injection. The patient experienced no paresthesia. The procedure was completed without any apparent difficulty or any complications. The patient appeared to tolerate it well. ASSESSMENT AND PLAN: This is a 69-year-old female with lumbosacral spondylosis, lumbosacral degenerative disc disease, lumbar facet arthropathy status post bilateral lumbar medial branch block at L4-S1, patient will continue current medications, patient will follow approximately 2 weeks for reevaluation.
[2024-01-26 09:35] VITALS: BP 112/83; BP 118/61; PULSE 86; RESP 16; O2SAT 100
[2024-01-26 09:40] VITALS: BP 118/61; BP 124/80; PULSE 77; RESP 16; TEMP 36.1; O2SAT 100
[2024-01-26 09:57] VITALS: BP 118/61
== END 2024-01-26 10:19 | disposition home or self-care (01) ==
LOC: SDC 07:40 → AC 07:42
PROVIDERS: PCP Family Medicine Geriatric Medicine; Referring Provider Anesthesiology Pain Medicine; Visit Provider Anesthesiology Pain Medicine
PROC: 3E0S3BZ Introduction of Anesthetic Agent into Epidural Space, Percutaneous Approach (ICD-10-PCS; CPT 62322; principal; 2024-01-26 09:15)
DX: M47.816 Spondylosis without myelopathy or radiculopathy, lumbar region (principal); I48.0 Paroxysmal atrial fibrillation; E11.9 Type 2 diabetes mellitus without complications; Z79.4 Long term (current) use of insulin; M47.817 Spondylosis without myelopathy or radiculopathy, lumbosacral region; M51.37 Other intervertebral disc degeneration, lumbosacral region; I10 Essential (primary) hypertension; I25.10 Atherosclerotic heart disease of native coronary artery without angina pectoris; E78.2 Mixed hyperlipidemia; Z79.01 Long term (current) use of anticoagulants; Z95.5 Presence of coronary angioplasty implant and graft
CPT/HCPCS: 64493; 64494; 01992; 64483; 72110; 72114; 82962; J7120

== ENCOUNTER 2024-03-02 15:07 | Inpatient (IN) | payer MEDICARE, MEDICAID, SELFPAY ==
[2024-03-02] VITALS (11 sets, daily range): BP systolic 93–139; BP diastolic 46–88; PULSE 80–98; RESP 16–24; TEMP 35.8–36.8; O2SAT 97–100; BMI 36.8; BMI 35.7
--- NOTE | 2024-03-02 15:50 | EKG12_ITS ---
Test Reason : Blood Pressure : / mmHG Vent. Rate : 109 BPM Atrial Rate : 000 BPM P-R Int : 000 ms QRS Dur : 084 ms QT Int : 276 ms P-R-T Axes : 000 -25 164 degrees QTc Int : 371 ms Atrial fibrillation with rapid ventricular response Nonspecific ST and T wave abnormality Abnormal ECG Confirmed by Edwin Nowak ([id number]), general expeditor MAUREEN YAÑEZ ([id number]) on 03/03/2024 9:02:53 AM Referred By: Lili Ma Confirmed By:Edwin Nowak
[2024-03-02] MEDS: Albuterol 2.5 MG/3 ML VIAL.NEB. INHALATION (16:27)
[2024-03-02] MEDS: Ipratropium/Albuterol Sulfate 3 ML AMPUL.NEB INHALATION (16:27)
--- NOTE | 2024-03-02 16:28 | ED.VIS.DYS ---
HPI History of Present Illness Chief Complaint: Shortness of Breath Informant: patient, family and EMS Narrative Narrative: 69-year-old female presenting to the emergency room with dyspnea. Patient daughter called EMS today because she is unable to transport her by herself. Patient lives at home with her son. Per the daughter the son stated that she has not been doing well. They note cough and shortness of breath of 2 weeks with right rib pain. Rib pain has been there since the beginning. She chronically wears 3 L of home O2 for a diagnosis of COPD. She is anticoagulated on Eliquis due to prior PE/DVT as well as paroxysmal atrial fibrillation. No reported fevers. Decreased p.o. intake. Patient cannot describe her sputum. Patient is a very poor historian. Daughter recounts some history that was given to her by her brother. [facility] Medical History Open wound Chronic kidney disease (CKD) History of echocardiogram History of atrial fibrillation Vertigo Wears hearing aid Wears dentures Wears glasses Post-menopausal Cancer Anxiety Tinnitus Thyroid disease Insulin dependent diabetes mellitus Diabetes Uses wheelchair Walker as ambulation aid Arthritis History of renal disease Anemia High cholesterol Pulmonary embolism DVT (deep venous thrombosis) Excessive bleeding Back pain Injury of back Migraine headache Difficulty swallowing History of diverticulitis Gastroparesis History of IBS Gastric reflux Former smoker Sleep apnea On home oxygen therapy Diabetic neuropathy History of edema History of Holter monitoring History of stress test History of CHF (congestive heart failure) History of heart attack Cardiology follow-up encounter Paroxysmal atrial fibrillation Chronic kidney disease (CKD) stage G3b/A1, moderately decreased glomerular filtration rate (GFR) between 30-44 mL/min/1.73 square meter and albuminuria creatinine ratio less than 30 mg/g Anxiety Closed intertrochanteric fracture of left femur Fall at home Broken rib Pulmonary hypertension Gastroparesis Presence of stent in coronary artery (~12/07/03) Mixed hyperlipidemia History of cervical cancer DDD (degenerative disc disease) Lung nodule RLS (restless legs syndrome) Pulmonary embolism History of DVT (deep vein thrombosis) Atherosclerotic heart disease of [place] coronary artery without angina pectoris Essential hypertension Paroxysmal A-fib Diabetes mellitus type 2 in obese PARESH (obstructive sleep apnea) Chronic respiratory insufficiency COPD (chronic obstructive pulmonary disease) GERD (gastroesophageal reflux disease) Hypothyroidism Home Medications ?Medication ?Instructions ?Recorded ?Last Taken ?Type atorvastatin 40 mg tablet 40 mg PO QHS CHOLESTEROL LOWERING 02/03/18 03/01/24 History ascorbic acid (vitamin C) 500 mg 500 mg PO DAILY@1700 supplement 05/17/18 03/02/24 History tablet allopurinol 100 mg tablet 100 mg PO DAILY gout 08/11/19 03/02/24 History buspirone 10 mg tablet 10 mg PO BID depression 06/12/22 03/02/24 History duloxetine 60 mg capsule,delayed 60 mg PO DAILY MENTAL HEALTH 06/12/22 03/02/24 History release sodium chloride 0.65 % nasal spray 2 spray intranasal TID PRN 06/12/22 03/02/24 History aerosol (Saline Mist) ALLERGIES nitroglycerin 0.4 mg sublingual 0.4 mg sublingual Q5-15M PRN chest 10/21/22 11/26/23 Rx tablet pain #25 tabs albuterol sulfate 90 mcg/actuation 2 puff inhalation PRN PRN COPD 12/12/22 11/26/23 History aerosol inhaler buspirone 10 mg tablet 15 mg PO QHS 06/03/23 03/01/24 History nystatin 100,000 unit/gram topical 1 applic topical TID PRN SKIN 06/03/23 11/26/23 History powder ([facility]) triamcinolone acetonide 0.1 % 1 applic topical DAILY PRN SKIN 06/03/23 11/26/23 History topical cream ranolazine 500 mg tablet,extended 500 mg PO BID #60 tabs 07/02/23 03/02/24 Rx release,12 hr apixaban 5 mg tablet (Eliquis) 5 mg PO BID #60 tabs 08/12/23 03/02/24 Rx insulin lispro 100 unit/mL 14 unit (0.14 mL) subcut BREAKFAST 08/20/23 03/02/24 Rx subcutaneous pen DIABETES #15 mL insulin lispro 100 unit/mL 14 unit (0.14 mL) subcut LUNCH 08/20/23 03/02/24 Rx subcutaneous pen DIABETES #15 mL insulin lispro 100 unit/mL 24 unit (0.24 mL) subcut DINNER 08/20/23 03/01/24 Rx subcutaneous pen DIABETES #15 mL amlodipine 5 mg tablet 5 mg PO DAILY BP #30 tabs 09/30/23 03/02/24 Rx insulin glargine 100 unit/mL (3 58 - 60 unit subcut BID DM 11/25/23 03/02/24 History mL) subcutaneous pen (Lantus Solostar U-100 Insulin) omeprazole 40 mg capsule,delayed 40 mg PO DAILY 11/25/23 03/02/24 History release fluticasone fur. 100 mcg-umeclid 1 inh inhalation DAILY 01/19/24 01/26/24 History 62.5 mcg-vilant 25 mcg inhalat.powder (Trelegy Ellipta) levothyroxine 88 mcg tablet 88 mcg PO DAILY 01/19/24 03/02/24 History (Euthyrox) metoprolol tartrate 50 mg tablet 50 mg PO BID 03/02/24 03/02/24 History Allergy/AdvReac Type Severity Reaction Status Date / Time metoclopramide (From Reglan) Allergy Intermediate Itching Verified 01/26/24 08:15 ciprofloxacin (From Cipro) Allergy Hives Verified 01/26/24 08:15 latex Allergy matos me Verified 01/26/24 08:15 niacin (From Niaspan Allergy Hives Verified 01/26/24 08:15 Extended-Release) ranolazine (From Ranexa) Allergy Itching Verified 01/26/24 08:15 orphenadrine AdvReac Mild PT UNABLE Verified 01/26/24 08:15 TO RESPOND-NEEDS F/U adhesive tape AdvReac Other Verified 01/26/24 08:15 orphenadrine citrate (From AdvReac groggy Verified 01/26/24 08:15 Norgesic) Family History Mother CAD (coronary artery disease) Father CAD (coronary artery disease) Brother CAD (coronary artery disease) Asthma Sister Hypertension Sister Diabetes Sister Heart disease Surgical History History of hip surgery History of coronary artery stent placement (06/04/23) History of cardiac catheterization Hx of surgical procedure Presence of coronary angioplasty implant and graft (~12/07/03) History of left heart catheterization (LHC) (~09/28/19) History of surgery on wrist History of tubal ligation History of nasal surgery History of knee surgery History of hernia repair History of cholecystectomy History of total abdominal hysterectomy Social History Smoking Status: Former smoker alcohol intake: never substance use type: does not use caffeine: Yes Type: coffee Number of servings: 1 ROS ROS ED Constitutional Constitutional ED: Reports other Details: Generalized weakness decreased p.o. intake ; Denies chills, fever(s) or weight loss Eyes Eyes: Denies change in vision or diplopia ENT ENT ED: Denies ear pain, rhinorrhea or sore throat Cardiovascular Cardiovascular: Reports chest pain; Denies orthopnea, palpitations or racing heartbeat Respiratory/Chest Respiratory/Chest: Reports cough, dyspnea, dyspnea on exertion and sputum; Denies orthopnea Gastrointestinal Gastrointestinal: Denies abdominal pain, diarrhea, nausea or vomiting Genitourinary Genitourinary ED: Denies dysuria, hematuria or urinary frequency Musculoskeletal Musculoskeletal: Reports back pain and other Details: Chronic back pain ; Denies arthralgias or myalgias Integumentary Denies abscess or rash Neurologic Neurologic: Denies headache(s) or weakness Psychiatric Psychiatric: Denies anxiety, depression, suicidal ideation or suicidal thoughts Endocrine Endocrinology: Denies polydipsia, polyphagia or polyuria Allergic/Immunologic Allergic/Immunologic ED: Denies mouth swelling, tongue swelling or urticaria EXAM Physical Exam Const Vital Signs: 03/02/24 15:08 03/02/24 15:15 03/02/24 16:14 Temperature 96.5 F L 98.3 F Temperature Source Temporal Oral Pulse Rate 92 86 Respiratory Rate 24 H 23 H Respiratory Effort Short of Breath Respiratory Pattern Tachypnea Blood Pressure 121/65 H 139/72 H Blood Pressure Mean 83 94 Pulse Ox 100 100 Oxygen Delivery Method Nasal Cannula Nasal Cannula Nasal Cannula Oxygen Flow Rate (L/min) 3 3 2 03/02/24 16:32 03/02/24 16:32 03/02/24 17:00 Temperature Temperature Source Pulse Rate 85 88 Respiratory Rate 18 22 H Respiratory Effort Respiratory Pattern Normal Blood Pressure 119/88 H Blood Pressure Mean 98 Pulse Ox 100 100 Oxygen Delivery Method Nasal Cannula Oxygen Flow Rate (L/min) 2 03/02/24 17:00 03/02/24 18:00 03/02/24 18:50 Temperature 97.8 F 97.6 F L 97.6 F L Temperature Source Oral Oral Pulse Rate 89 98 89 Respiratory Rate 18 16 24 H Respiratory Effort Respiratory Pattern Blood Pressure 128/65 H 105/70 93/53 L Blood Pressure Mean 86 81 66 Pulse Ox 98 99 99 Oxygen Delivery Method Nasal Cannula Nasal Cannula Oxygen Flow Rate (L/min) 2 2 Positive well nourished, well developed and obese General Appearance ED: well developed Nutritional Appearance: obese HEENT Reports normocephalic, head/scalp atraumatic and moist mucous membranes Eyes PERRL and EOMs intact bilaterally Neck no lymphadenopathy, supple and no JVD Resp normal respiratory effort Auscultation: rhonchi right lower Cardio no murmurs Cardio Narrative: Patient's heart rate variable on the monitor from the 70s to around 100 bpm during the examination Rhythm: abnormal rhythm irregularly irregular GI normal to inspection, nondistended, normoactive bowel sounds and non-tender Palpation: soft Back/Spine no CVA tenderness and normal ROM Extremity normal to inspection General Extremety ED: Negative for edema General Extremity: Negative for edema Neuro oriented x3 and CN's II-XII intact bilaterally Sensorium / Orientation: alert Motor Exam: strength 5/5 throughout Psych mental status grossly normal Mood & Affect: Negative for depressed or tearful Skin no rashes or lesions noted and no wounds MDM MDM MDM Narrative Medical decision making narrative: Torrential diagnosis includes but not limited to ACS pulmonary embolism pneumonia pleural effusion sepsis COPD exacerbation My independent interpretation of the plain film chest x-ray is no definitive infiltrate. Radiologist read is mild right middle lobe infiltrate. White count returns at 9.3 with 81.6 neutrophils. INR 1.9 PTT 38.5. Creatinine 1.12 glucose 73. She was given food. Lactic acid 0.9 total bilirubin is 1.10 direct bilirubin 0.48 troponin is 8 BNP 172.6. Patient received breathing treatments supplemental oxygen Rocephin and azithromycin. She also received a dose of Solu-Medrol. Plan is admission into hospital. History & Record Review Discussion w/independent historian: EMS personnel, Patient and Family Additional record(s) reviewed:: Prior labs Lab Data Attestation: I reviewed the patient's lab results. Labs: Laboratory Results - last 24 hr 03/02/24 03/02/24 03/02/24 15:50 15:55 16:12 WBC 9.3 RBC 4.15 L Hgb 12.1 Hct 39.3 MCV 94.7 MCH 29.2 MCHC 30.8 L RDW Std Deviation 48.1 H RDW Coeff of Aubrey 14.0 Plt Count 251 MPV 9.8 Immature Gran % (Auto) 0.800 Neut % (Auto) 81.6 H Lymph % (Auto) 7.4 L [place] % (Auto) 7.0 Eos % (Auto) 2.8 Baso % (Auto) 0.4 Absolute Neuts (auto) 7.6 Absolute Lymphs (auto) 0.69 L Nucleated RBC % 0 PT 21.8 H INR 1.9 APTT 38.5 H Sodium 138 Potassium 3.6 Chloride 109 H Carbon Dioxide 26.0 Anion Gap 3 L BUN 17 Creatinine 1.12 H Estim Creat Clear Calc 47.96 Est GFR (MDRD) Af Amer 62 Est GFR (MDRD) Non-Af 51 L BUN/Creatinine Ratio 15.2 Glucose 73 L Lactic Acid 0.9 Calcium 8.9 Total Bilirubin 1.10 H Direct Bilirubin 0.48 H AST 15 ALT 14 Alkaline Phosphatase 65 Troponin I High Sens 8 B-Natriuretic Peptide 172.6 H Total Protein 7.6 Albumin 3.1 L Globulin 4.5 H Radiography Diagnostic Testing: Clinical Impression(s) from Imaging Studies Chest X-Ray 03/02/24 16:50 IMPRESSION: Mild right upper lobe interstitial infiltrate Electronically Signed: Kamari Andino MD at 17:38 EDT Reading Location ID and State: [facility] / [place] Tel , Service support , EKG Initial EKG: Attestation: I personally reviewed and interpreted this EKG as follows: Comments: Atrial fibrillation with a ventricular rate of 109 bpm. Management Discussion w/another healthcare provider: Hospitalist Discharge Plan Dx/Rx/DC Orders Clinical Impression: COPD exacerbation, Pneumonia, Chronic hypoxic respiratory failure, Atrial fibrillation, Diabetes mellitus type 2 in obese, Anticoagulated Disposition Disposition: Acute Care Hospital [facility] Discharge Date/Time: 03/02/24 22:16
[2024-03-02] MEDS: Acetaminophen 500 MG Tablet 1000 MG PO ×2 (16:31→22:56)
--- NOTE | 2024-03-02 16:50 | RAD_ITS ---
STUDY: X-RAY CHEST REASON FOR EXAM: Female, 69 years old. cough dyspnea TECHNIQUE: Single frontal view of the chest. COMPARISON: None. FINDINGS: Right upper lobe interstitial infiltrate. There is no demonstrated pleural abnormality. Normal size heart. Normal mediastinum and tracie. Normal visualized pulmonary arteries. Normal visualized aortic arch and descending thoracic aorta. Normal visualized thoracic spine. Normal visualized ribs, clavicles, and shoulders. There is no demonstrated abnormality of the visualized soft tissue structures of the upper abdomen. RAD/Chest 1 View (Portable) IMPRESSION: Mild right upper lobe interstitial infiltrate Electronically Signed: Kamari Andino MD at 17:38 EDT ,
[2024-03-02 16:52] LABS: Absolute Lymphocyte Count 0.69 X10^3/uL (0.83-4.51); Absolute Neutrophil Count 7.6 X10^3/uL (2.0-7.7); Basophil# 0.04 X10^3/uL; Basophil% 0.4 % (0-1); Eosinophil# 0.26 X10^3/uL; Eosinophils% 2.8 % (0-5); Hematocrit 39.3 % (37-47); Hemoglobin 12.1 g/dL (12.0-15.0); Lymphocyte # 0.69 X10^3/ul (0.83-4.51); Lymphocyte % 7.4 % (19-41); Mean Corp Hgb Conc 30.8 g/dL (32-36); Mean Corpuscular Hgb 29.2 pg (27.0-32.0); Mean Corpuscular Volume 94.7 fL (81-99); Mean Platelet Vol. 9.8 fl (6.2-12.0); Monocyte# 0.65 X10^3/uL; NRBC Flagged by Analyzer 0 % (0-5); Neutrophil # 7.62 X10^3/uL (2.7-7.7); Neutrophil % 81.6 % (47-70); Platelet Count 251 K/mm3 (150-450); RBC Distribution Width SD 48.1 fl (35.1-43.9); Red Blood Count 4.15 M/mm3 (4.2-5.4); White Blood Count 9.3 K/mm3 (4.4-11.0)
[2024-03-02 17:09] LABS: AST(SGOT) 15 U/L (15-37); Alanine Aminotransfer ALT/SGPT 14 U/L (13-56); Albumin, Serum 3.1 g/dL (3.2-5.0); Alkaline Phosphatase 65 U/L (45-117); Anion Gap 3 (5-15); BUN 17 mg/dL (7-18); BUN/Creat Ratio 15.2 RATIO (10-20); Bilirubin, Direct 0.48 mg/dL (0.00-0.30); Calcium,Total 8.9 mg/dL (8.5-10.1); Chloride 109 mmol/L (98-107); Creatinine, Serum 1.12 mg/dL (0.55-1.02); EST Glomerular Filtration Rate 51 mL/min (>60); Est Glom Filt Rate - Afr Amer 62 mL/min (>60); Estimated Creatinine Clearance 47.96 ml/min; Globulin 4.5 g/dL (2.2-4.2); Glucose 73 mg/dL (74-106); Potassium 3.6 mmol/L (3.5-5.1); Protein, Total 7.6 g/dL (6.4-8.2); Sodium Level 138 mmol/L (136-145); Troponin-I HS 8 pg/mL (3.0-54.0)
[2024-03-02 17:14] LABS: International Normalized Ratio 1.9; Partial Thromboplast Time 38.5 Seconds (24.1-36.2); Prothrombin Time (Protime)PT. 21.8 SECONDS (11.7-14.9)
[2024-03-02 17:14] LABS: Lactic Acid 0.9 mmol/L (0.4-1.9)
[2024-03-02] MEDS: Ceftriaxone 1 GM/50 ML BAG IV (18:47)
[2024-03-02] MEDS: MethylPREDNISolone 125 MG/2 ML Vial IV (18:47)
[2024-03-02 19:19] LABS: BNP,B-Type NATRIURETIC PEPTIDE 172.6 pg/mL (0-100)
--- NOTE | 2024-03-02 19:50 | PCM.HP.STD ---
[facility] - General General Date of Admission: 03/02/24 Date of Service: 03/02/24 Chief Complaint: Cough and shortness of breath HPI Narrative RUI PANDA, is a 69 F with history of atrial fibrillation, COPD and coronary disease as well as pulmonary hypertension and morbid obesity and obstructive sleep apnea noncompliant with CPAP. Patient presents to the hospital with 2 to 3-week history of worsening shortness of breath and cough, feeling unwell with malaise and fatigue and anorexia and more recently pleuritic right-sided chest pain. Prompted by family to come to the hospital today. Chest x-ray done showing right upper lobe infiltrates. [facility] Medical History Open wound Chronic kidney disease (CKD) History of echocardiogram History of atrial fibrillation Vertigo Wears hearing aid Wears dentures Wears glasses Post-menopausal Cancer Anxiety Tinnitus Thyroid disease Insulin dependent diabetes mellitus Diabetes Uses wheelchair Walker as ambulation aid Arthritis History of renal disease Anemia High cholesterol Pulmonary embolism DVT (deep venous thrombosis) Excessive bleeding Back pain Injury of back Migraine headache Difficulty swallowing History of diverticulitis Gastroparesis History of IBS Gastric reflux Former smoker Sleep apnea On home oxygen therapy Diabetic neuropathy History of edema History of Holter monitoring History of stress test History of CHF (congestive heart failure) History of heart attack Cardiology follow-up encounter Paroxysmal atrial fibrillation Chronic kidney disease (CKD) stage G3b/A1, moderately decreased glomerular filtration rate (GFR) between 30-44 mL/min/1.73 square meter and albuminuria creatinine ratio less than 30 mg/g Anxiety Closed intertrochanteric fracture of left femur Fall at home Broken rib Pulmonary hypertension Gastroparesis Presence of stent in coronary artery (~12/07/03) Mixed hyperlipidemia History of cervical cancer DDD (degenerative disc disease) Lung nodule RLS (restless legs syndrome) Pulmonary embolism History of DVT (deep vein thrombosis) Atherosclerotic heart disease of [place] coronary artery without angina pectoris Essential hypertension Paroxysmal A-fib Diabetes mellitus type 2 in obese PARESH (obstructive sleep apnea) Chronic respiratory insufficiency COPD (chronic obstructive pulmonary disease) GERD (gastroesophageal reflux disease) Hypothyroidism Home Medications ?Medication ?Instructions ?Recorded ?Last Taken ?Type atorvastatin 40 mg tablet 40 mg PO QHS CHOLESTEROL LOWERING 02/03/18 03/01/24 History ascorbic acid (vitamin C) 500 mg 500 mg PO DAILY@1700 supplement 05/17/18 03/02/24 History tablet allopurinol 100 mg tablet 100 mg PO DAILY gout 08/11/19 03/02/24 History buspirone 10 mg tablet 10 mg PO BID depression 06/12/22 03/02/24 History duloxetine 60 mg capsule,delayed 60 mg PO DAILY MENTAL HEALTH 06/12/22 03/02/24 History release sodium chloride 0.65 % nasal spray 2 spray intranasal TID PRN 06/12/22 03/02/24 History aerosol (Saline Mist) ALLERGIES nitroglycerin 0.4 mg sublingual 0.4 mg sublingual Q5-15M PRN chest 10/21/22 11/26/23 Rx tablet pain #25 tabs albuterol sulfate 90 mcg/actuation 2 puff inhalation PRN PRN COPD 12/12/22 11/26/23 History aerosol inhaler buspirone 10 mg tablet 15 mg PO QHS 06/03/23 03/01/24 History nystatin 100,000 unit/gram topical 1 applic topical TID PRN SKIN 06/03/23 11/26/23 History powder ([facility]) triamcinolone acetonide 0.1 % 1 applic topical DAILY PRN SKIN 06/03/23 11/26/23 History topical cream ranolazine 500 mg tablet,extended 500 mg PO BID #60 tabs 07/02/23 03/02/24 Rx release,12 hr apixaban 5 mg tablet (Eliquis) 5 mg PO BID #60 tabs 08/12/23 03/02/24 Rx insulin lispro 100 unit/mL 14 unit (0.14 mL) subcut BREAKFAST 08/20/23 03/02/24 Rx subcutaneous pen DIABETES #15 mL insulin lispro 100 unit/mL 14 unit (0.14 mL) subcut LUNCH 08/20/23 03/02/24 Rx subcutaneous pen DIABETES #15 mL insulin lispro 100 unit/mL 24 unit (0.24 mL) subcut DINNER 08/20/23 03/01/24 Rx subcutaneous pen DIABETES #15 mL amlodipine 5 mg tablet 5 mg PO DAILY BP #30 tabs 09/30/23 03/02/24 Rx insulin glargine 100 unit/mL (3 58 - 60 unit subcut BID DM 11/25/23 03/02/24 History mL) subcutaneous pen (Lantus Solostar U-100 Insulin) omeprazole 40 mg capsule,delayed 40 mg PO DAILY 11/25/23 03/02/24 History release fluticasone fur. 100 mcg-umeclid 1 inh inhalation DAILY 01/19/24 01/26/24 History 62.5 mcg-vilant 25 mcg inhalat.powder (Trelegy Ellipta) levothyroxine 88 mcg tablet 88 mcg PO DAILY 01/19/24 03/02/24 History (Euthyrox) metoprolol tartrate 50 mg tablet 50 mg PO BID 03/02/24 03/02/24 History Allergy/AdvReac Type Severity Reaction Status Date / Time metoclopramide (From Reglan) Allergy Intermediate Itching Verified 01/26/24 08:15 ciprofloxacin (From Cipro) Allergy Hives Verified 01/26/24 08:15 latex Allergy matos me Verified 01/26/24 08:15 niacin (From Niaspan Allergy Hives Verified 01/26/24 08:15 Extended-Release) ranolazine (From Ranexa) Allergy Itching Verified 01/26/24 08:15 orphenadrine AdvReac Mild PT UNABLE Verified 01/26/24 08:15 TO RESPOND-NEEDS F/U adhesive tape AdvReac Other Verified 01/26/24 08:15 orphenadrine citrate (From AdvReac groggy Verified 01/26/24 08:15 Norgesic) Family History Mother CAD (coronary artery disease) Father CAD (coronary artery disease) Brother CAD (coronary artery disease) Asthma Sister Hypertension Sister Diabetes Sister Heart disease Surgical History History of hip surgery History of coronary artery stent placement (06/04/23) History of cardiac catheterization Hx of surgical procedure Presence of coronary angioplasty implant and graft (~12/07/03) History of left heart catheterization (LHC) (~09/28/19) History of surgery on wrist History of tubal ligation History of nasal surgery History of knee surgery History of hernia repair History of cholecystectomy History of total abdominal hysterectomy Social History Smoking Status: Former smoker alcohol intake: never substance use type: does not use caffeine: Yes Type: coffee Number of servings: 1 ROS ROS Narrative Does not report any nausea vomiting. All other systems reviewed and essentially negative or as above independent with history Vital Signs Vital Signs Vital Signs: 03/02/24 15:08 03/02/24 15:15 03/02/24 16:14 Temperature 35.8 C L 36.8 C Temperature Source Temporal Oral Pulse Rate 92 86 Respiratory Rate 24 H 23 H Respiratory Effort Short of Breath Respiratory Pattern Tachypnea Blood Pressure 121/65 H 139/72 H Blood Pressure Mean 83 94 Pulse Ox 100 100 Oxygen Delivery Method Nasal Cannula Nasal Cannula Nasal Cannula Oxygen Flow Rate (L/min) 3 3 2 03/02/24 16:32 03/02/24 16:32 03/02/24 17:00 Temperature Temperature Source Pulse Rate 85 88 Respiratory Rate 18 22 H Respiratory Effort Respiratory Pattern Normal Blood Pressure 119/88 H Blood Pressure Mean 98 Pulse Ox 100 100 Oxygen Delivery Method Nasal Cannula Oxygen Flow Rate (L/min) 2 03/02/24 17:00 03/02/24 18:00 03/02/24 18:50 Temperature 36.6 C 36.4 C L 36.4 C L Temperature Source Oral Oral Pulse Rate 89 98 89 Respiratory Rate 18 16 24 H Respiratory Effort Respiratory Pattern Blood Pressure 128/65 H 105/70 93/53 L Blood Pressure Mean 86 81 66 Pulse Ox 98 99 99 Oxygen Delivery Method Nasal Cannula Nasal Cannula Oxygen Flow Rate (L/min) 2 2 03/02/24 19:39 Temperature 36.6 C Temperature Source Oral Pulse Rate 91 Respiratory Rate 21 H Respiratory Effort Respiratory Pattern Blood Pressure 98/46 L Blood Pressure Mean 63 Pulse Ox 97 Oxygen Delivery Method Nasal Cannula Oxygen Flow Rate (L/min) 2 Weight Weight: 88.5 kg Body Mass Index (BMI) 36.8 Physical Exam Narrative General examination. Elderly male, obese, acutely ill appearing, chronically ill-appearing, weak appearing HEENT. Oral mucosa dry, no pallor or jaundice Neck. Neck is supple Heart. First and second heart sounds heard but slightly distant. Lungs. Transmitted sounds and diffuse mild expiratory wheezing bilaterally. Extremities. 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 Conscious and alert and oriented x 3. Cranial nerves II to XII grossly intact. Results Medical Records Data Attestation: I reviewed the patient's medical records Lab / Micro Data Attestation: I reviewed the patient's lab results. 03/02/24 15:50 03/02/24 15:55 Labs: Laboratory Results - last 24 hr 03/02/24 15:50: WBC 9.3, RBC 4.15 L, Hgb 12.1, Hct 39.3, MCV 94.7, MCH 29.2, MCHC 30.8 L, RDW Std Deviation 48.1 H, RDW Coeff of Aubrey 14.0, Plt Count 251, MPV 9.8, Immature Gran % (Auto) 0.800, Neut % (Auto) 81.6 H, Lymph % (Auto) 7.4 L, [place] % (Auto) 7.0, Eos % (Auto) 2.8, Baso % (Auto) 0.4, Absolute Neuts (auto) 7.6, Absolute Lymphs (auto) 0.69 L, Nucleated RBC % 0, PT 21.8 H, INR 1.9, APTT 38.5 H, B-Natriuretic Peptide 172.6 H 03/02/24 15:55: Sodium 138, Potassium 3.6, Chloride 109 H, Carbon Dioxide 26.0, Anion Gap 3 L, BUN 17, Creatinine 1.12 H, Estim Creat Clear Calc 47.96, Est GFR (MDRD) Af Amer 62, Est GFR (MDRD) Non-Af 51 L, BUN/Creatinine Ratio 15.2, Glucose 73 L, Calcium 8.9, Total Bilirubin 1.10 H, Direct Bilirubin 0.48 H, AST 15, ALT 14, Alkaline Phosphatase 65, Troponin I High Sens 8, Total Protein 7.6, Albumin 3.1 L, Globulin 4.5 H 03/02/24 16:12: Lactic Acid 0.9 Micro: Microbiology 03/02/24 16:12 Mucosa - Nose SARS-CoV-2, Influenza & RSV (PCR) - Final ABG Data Attestation: I personally reviewed and interpreted this ABG as follows: Imaging Radiology Impression Chest X-Ray 03/02/24 16:50 IMPRESSION: Mild right upper lobe interstitial infiltrate Electronically Signed: Kamari Andino MD at 17:38 EDT , Assessment & Plan Assessment/Plan (1) Community acquired pneumonia: PLAN: Plan 1. Community-acquired pneumonia. Involving the right upper lobe. Started on IV antibiotics. Will continue Rocephin 2 g daily and azithromycin 500 mg daily. 2. COPD. Patient appears to be in mild exacerbation. Scheduled inhaled bronchodilator therapy with DuoNebs every 6 hours, mucolytic therapy with Mucinex. Supplemental oxygen as needed. 3. Chronic hypoxic respiratory failure secondary to COPD and pulmonary hypertension and PARESH and likely OHS. Continue supplemental oxygen to keep sats above 92%. Charges/Coding Visit Charges Inpatient E&M: 56980 Init Hosp L3
[2024-03-02] MEDS: Azithromycin 500 MG in Dextrose 5%-Water (250mL Bag) 250 ML 250 MG IV (19:55)
[2024-03-02] MEDS: Insulin Glargine-YFGN 100 UNIT/ML Pen 50 UNIT SC (22:55)
[2024-03-02] MEDS: APIXABAN 5 MG TABLET PO (22:55)
[2024-03-02] MEDS: busPIRone 15 MG TABLET PO (22:55)
[2024-03-02] MEDS: Metoprolol Tartrate 50 MG Tablet PO (22:56)
[2024-03-02] MEDS: guaiFENesin 1,200 MG Tablet 1200 MG PO (22:56)
[2024-03-02] MEDS: Ranolazine 500 MG Tablet PO (22:56)
[2024-03-02] MEDS: Atorvastatin Calcium 40 MG Tablet PO (22:56)
[2024-03-02 23:29] LABS: Mucous, Urine 0 SEEN /hpf (<or=2+); Red Blood Cells-Urine 0 SEEN /hpf (0-5)
[2024-03-02 23:34] LABS: Bedside Glucose 179 mg/dL (74-106)
[2024-03-03] VITALS (8 sets, daily range): BP systolic 104–109; BP diastolic 58–63; PULSE 88–108; RESP 18–22; TEMP 36.5–37.3; O2SAT 89–99
[2024-03-03 00:15] LABS: Color, Urine Yellow (Yellow); Glucose, Dipstick NEGATIVE (Normal); Urine Bilirubin Dipstick Negative (Negative); Urine Clarity Clear (Clear)
[2024-03-03 00:16] LABS: Bacteria 3+ /hpf (None Seen); Ketone-Dipstick Negative (Negative); Leukocyte Esterase-Dipstick 500 /ul (Negative); Nitrite-Dipstick Negative (Negative); Occult Blood-Urine Negative /ul (Negative); Protein-Dipstick Negative (Negative); Squamous Epithelial Cells - UA 5-10 SEEN /hpf (5-10); Urine Urobilinogen Normal (Normal); White Blood Cells 25-50 SEEN /hpf (0-5)
[2024-03-03] MEDS: Ipratropium/Albuterol Sulfate 3 ML AMPUL.NEB INHALATION ×2 (00:49→06:33)
[2024-03-03] MEDS: Levothyroxine 88 MCG Tablet PO (06:22)
[2024-03-03] MEDS: Acetaminophen 500 MG Tablet 1000 MG PO ×2 (06:23→13:40)
[2024-03-03 06:43] LABS: Bedside Glucose 254 mg/dL (74-106)
[2024-03-03 07:07] LABS: Absolute Lymphocyte Count 0.43 X10^3/uL (0.83-4.51); Basophil# 0.01 X10^3/uL; Basophil% 0.2 % (0-1); Hematocrit 35.6 % (37-47); Hemoglobin 11.1 g/dL (12.0-15.0); Lymphocyte # 0.43 X10^3/ul (0.83-4.51); Lymphocyte % 6.5 % (19-41); Mean Corp Hgb Conc 31.2 g/dL (32-36); Mean Corpuscular Hgb 28.8 pg (27.0-32.0); Mean Corpuscular Volume 92.5 fL (81-99); Mean Platelet Vol. 10.3 fl (6.2-12.0); Monocyte# 0.07 X10^3/uL; Monocyte% 1.1 % (0-10); NRBC Flagged by Analyzer 0 % (0-5); Neutrophil # 6.02 X10^3/uL (2.7-7.7); Neutrophil % 91.4 % (47-70); POSITIVE DIFFERENTIAL YES; Platelet Count 247 K/mm3 (150-450); RBC Distribution Width CV 13.6 % (11.6-14.6); RBC Distribution Width SD 45.5 fl (35.1-43.9); Red Blood Count 3.85 M/mm3 (4.2-5.4); White Blood Count 6.6 K/mm3 (4.4-11.0)
[2024-03-03 07:38] LABS: ALB/GLOB Ratio 0.7 RATIO (0.9-2.4); AST(SGOT) 13 U/L (15-37); Alanine Aminotransfer ALT/SGPT 13 U/L (13-56); Albumin, Serum 2.8 g/dL (3.2-5.0); Alkaline Phosphatase 61 U/L (45-117); Anion Gap 4 (5-15); BUN 17 mg/dL (7-18); BUN/Creat Ratio 14.9 RATIO (10-20); Calcium,Total 8.8 mg/dL (8.5-10.1); Chloride 109 mmol/L (98-107); Creatinine, Serum 1.14 mg/dL (0.55-1.02); EST Glomerular Filtration Rate 50 mL/min (>60); Est Glom Filt Rate - Afr Amer 61 mL/min (>60); Estimated Creatinine Clearance 46.35 ml/min; Globulin 4.3 g/dL (2.2-4.2); Glucose 264 mg/dL (74-106); Protein, Total 7.1 g/dL (6.4-8.2); Sodium Level 137 mmol/L (136-145)
[2024-03-03] MEDS: Insulin Glargine-YFGN 100 UNIT/ML Pen 50 UNIT SC (08:51)
[2024-03-03] MEDS: Insulin Lispro 100 UNIT/ML INSULN.PEN 14 UNIT SC ×2 (08:51→12:20)
[2024-03-03] MEDS: 0.9% Saline Lock 10 ML Syringe IV ×2 (08:52→13:39)
[2024-03-03] MEDS: Pantoprazole Sodium 40 MG Tablet PO (08:53)
[2024-03-03] MEDS: amLODIPine 5 MG Tablet PO (08:53)
[2024-03-03] MEDS: Metoprolol Tartrate 50 MG Tablet PO (08:53)
[2024-03-03] MEDS: guaiFENesin 1,200 MG Tablet 1200 MG PO (08:53)
[2024-03-03] MEDS: Allopurinol 100 MG Tablet PO (08:53)
[2024-03-03] MEDS: Ranolazine 500 MG Tablet PO (08:53)
[2024-03-03] MEDS: APIXABAN 5 MG TABLET PO (08:54)
[2024-03-03] MEDS: busPIRone 5 MG Tablet 10 MG PO (08:54)
[2024-03-03] MEDS: DULoxetine Hcl 60 MG Capsule PO (08:54)
[2024-03-03] MEDS: Azithromycin 250 MG Tablet 500 MG PO (08:55)
[2024-03-03] MEDS: Ceftriaxone 2 GM in 0.9% Normal Saline (50mL MB+) 50 ML IV (09:57)
--- NOTE | 2024-03-03 10:35 | CASEMGMT ---
Addendum entered by Soo Ness 03/03/24 11:52: TC to [facility], pt does not get her oxygen through them. Noted in previous notes, pt uses [facility]. [facility] to [facility], oxygen verified at 2-3LPM continuous. Original Note: TMO ROCHA Assessment: Face to Face with pt for initial transition planning/care coordination assessment. TOM ROCHA introduced self and role at [facility], pt voices understanding and consents to assessment. Pt is A&O x4 and answers all questions appropriately at this time. Pt sitting up in bed with oxygen on in no distress. Care providers, pharmacy, and demographics verified/updated. Admitting Dx: pneumonia PCP:[facility] Specialists:Marjorie, pulm; Trenton, ortho; Wan, cardio Preferred Pharmacy: [facility] Insurance: [facility] Dual Complete; [facility] Community Plan Prescription Benefit: yes LNOK: Maci Pickens, dtr; Mell Montero, dtr Living Arrangements: Pt lives with son in a two story home, pt lives on the main floor and the second story is separate. Pt has one step to enter. Pt reports she has an aide through [employer] 5 days/wk who assists her with showering, meal prep, laundry, etc. Pt goes to the grocery store but needs assistance with getting groceries into cart, car and home. Pt denies concerns at home. Transportation: Pt does not drive. Pt family or friends transport her to medical appts. DME:walker, w/c, oxygen through [employer]- pt has portable tank present in room, pox, CGM with sufficient supplies, sufficient supply of insulin and needles, shower chair HHC/SNF: Pt has had HHC in the past and been to SNF but pt cannot recall the names. Pt states no concerns with going home at time of dc. Discussed [facility] nursing and therapy to see her at home, pt denies need for this. Pt states she only needs her aide and if she is sick, she goes to the doctor. Discussed the assistance [facility] can provide, pt continues to decline any services mentioned politely. 6 clicks =20, no therapy ordered. Pt states no further concerns/needs. CM to follow. Advised pt to ask CM if any further question/concerns/needs arise, voices understanding. Pt Goal: Home Plan: Home pending course of hospitalization Yamini SANTOS CM
[2024-03-03 12:41] LABS: Bedside Glucose 449 mg/dL (74-106)
--- NOTE | 2024-03-03 14:17 | CHAPLAIN ---
Type of Pastoral Visit _x__ Initial Visit ___ Follow-up Visit ___ On-call Visit ___ General Patient Visit ___ Spiritual Assessment ___ Family Conference ___ Bereavement ___ Rapid Response ___ Code Blue ___ Other (describe below) Pastoral Care Referral From _x__ Patient ___ Family ___ Nurse ___ Physician ___ Physical Education Professor ___ Special Effects Person ___ Other (describe below) Sacrament/Intervention _x__ Active listening ___ Anointing ___ Restorationism ___ Bereavement ___ Communion ___ Eileen exploration ___ ___ Life review _x__ Prayer ___ Reconciliation ___ Sacrament of Sick ___ Supportive presence ___ Wedding ___ Other (describe below) Pastoral Comments patient and son are in the room; pt is finishing her lunch; pt states that she just wants to go home and feel better; pt is asked about her worries or concerns and she says Oh I have lots of worries and especially a couple that would take a miracle; pt does not elaborate when offered that opportunity but does accept a prayer
[2024-03-03] MEDS: MethylPREDNISolone Acetate 80 MG/ML Vial IM (14:57)
--- NOTE | 2024-03-03 15:08 | PCM.DC ---
Discharge Instructions Diet Discharge Diet: 1800 Calorie Control Diet Activity Discharge Activity: Return to Normal Activity Weight Bearing Status: Full weight bearing Follow Up Care Test Results: Test results from this visit will be discussed in further detail at your follow-up appointment, if applicable. Discharge Plan Admission Admit Date/Time: 03/02/24 19:31 Primary Reason for Your Visit: rhinovirus infection Attending Provider: Yared Fernández Primary Care Provider: Dylon Murrieta Chi Consulting Providers: Lili Ma Instructions Additional Instructions / Restrictions: Use your albuterol sulfate inhaler 2 puffs 4 times a day until you see your pulmonary doctor Discharge Orders/Prescriptions Prescriptions: New prednisone 20 mg tablet 40 mg PO DAILY Qty: 10 0RF Rx Instructions: 2 tabs daily for 3 days, then 1 tab daily for 4 days then stop Trelegy Ellipta 100-62.5-25 mcg blister with device 1 inh inhalation DAILY Qty: 60 0RF Continued allopurinol 100 mg tablet 100 mg PO DAILY buspirone 10 mg tablet 10 mg PO BID Patient Comments: PER PHARMACY PT TAKES 1 TAB (10 MG) IN THE MORNING AND AFTERNOON AND TAKES 1.5 TAB (15 MG) IN THE EVENING Rx Instructions: PER PHARMACY PT TAKES 1 TAB (10 MG) IN THE MORNING AND AFTERNOON AND TAKES 1.5 TAB (15 MG) IN THE EVENING Saline Mist 0.65 % aerosol,spray 2 spray intranasal TID PRN ranolazine 500 mg tablet extended release 12 hr 500 mg PO BID Qty: 60 11RF atorvastatin 40 MG tablet 40 mg PO QHS Patient Comments: cholesterol duloxetine 60 mg capsule,delayed release(DR/EC) 60 mg PO DAILY Patient Comments: mental health ascorbic acid (vitamin C) 500 MG tablet 500 mg PO DAILY@1700 Patient Comments: Supplement albuterol sulfate 90 mcg/actuation HFA aerosol inhaler 2 puff INHALATION PRN PRN (Reason: COPD) buspirone 10 mg tablet 15 mg PO QHS Patient Comments: PER PHARMACY PT TAKES 1 TAB (10 MG) IN THE MORNING AND AFTERNOON AND TAKES 1.5 TAB (15 MG) IN THE EVENING Rx Instructions: PER PHARMACY PT TAKES 1 TAB (10 MG) IN THE MORNING AND AFTERNOON AND TAKES 1.5 TAB (15 MG) IN THE EVENING nystatin [Nyamyc] 100,000 unit/gram powder 1 applic TOPICAL TID PRN triamcinolone acetonide 0.1 % cream 1 applic TOPICAL DAILY PRN Patient Comments: PT UNSURE IF SHE USES THIS insulin lispro 100 unit/mL insulin pen 14 unit SC LUNCH Qty: 15 0RF Rx Instructions: hold if glucose <100 insulin lispro 100 unit/mL insulin pen 14 unit SC BREAKFAST Qty: 15 0RF Rx Instructions: hold if glucose <100 insulin lispro 100 unit/mL insulin pen 24 unit SC DINNER Qty: 15 0RF Rx Instructions: hold if glucose <100 omeprazole 40 mg capsule,delayed release(DR/EC) 40 mg PO DAILY insulin glargine [Lantus Solostar U-100 Insulin] 100 unit/mL (3 mL) insulin pen 58 - 60 unit SC BID levothyroxine [Euthyrox] 88 mcg tablet 88 mcg PO DAILY metoprolol tartrate 50 mg tablet 50 mg PO BID nitroglycerin 0.4 mg tablet, sublingual 0.4 mg sublingual Q5-15M PRN (Reason: chest pain) Qty: 25 3RF Eliquis 5 mg tablet 5 mg PO BID Qty: 60 11RF amlodipine 5 mg tablet 5 mg PO DAILY Qty: 30 11RF Referrals / Follow Up: Syed Amador MD [Med Staff - Active Staff] - See Referral Note (At your scheduled office visit) Dylon Murrieta Chi, MD [Primary Care Provider] - Within 2 Weeks Disposition Disposition (needs filled in before D/C Order can be placed): Home, Self Care
--- NOTE | 2024-03-03 15:22 | DS.PCM_ITS ---
Providers Date of Admission: 03/02/24 Date of Discharge: 03/03/24 Primary Care Physician: Dr. Dylon Murrieta MD Reason For Visit: PNEUMONIA Diagnosis Discharge Diagnosis (1) Community acquired pneumonia: Status: Acute Code(s): J18.9 - Pneumonia, unspecified organism Plan 1. Rhinovirus pneumonia #2 chronic hypoxic respiratory failure #3 chronic obstructive pulmonary disease #4 chronic atrial fibrillation #5 coronary artery disease #6 type 2 diabetes #7 hypothyroidism #8 chronic depression Medications at Discharge Home Medications atorvastatin 40 mg tablet 40 mg PO QHS CHOLESTEROL LOWERING 02/03/18 ascorbic acid (vitamin C) 500 mg tablet 500 mg PO DAILY@1700 supplement 05/17/18 allopurinol 100 mg tablet 100 mg PO DAILY gout 08/11/19 buspirone 10 mg tablet 10 mg PO BID depression 06/12/22 duloxetine 60 mg capsule,delayed release 60 mg PO DAILY MENTAL HEALTH 06/12/22 sodium chloride 0.65 % nasal spray aerosol (Saline Mist) 2 spray intranasal TID PRN ALLERGIES 06/12/22 nitroglycerin 0.4 mg sublingual tablet 0.4 mg sublingual Q5-15M PRN chest pain #25 tabs 10/21/22 albuterol sulfate 90 mcg/actuation aerosol inhaler 2 puff inhalation PRN PRN COPD 12/12/22 buspirone 10 mg tablet 15 mg PO QHS 06/03/23 nystatin 100,000 unit/gram topical powder (Nyamyc) 1 applic topical TID PRN SKIN 06/03/23 triamcinolone acetonide 0.1 % topical cream 1 applic topical DAILY PRN SKIN 06/03/23 ranolazine 500 mg tablet,extended release,12 hr 500 mg PO BID #60 tabs 07/02/23 apixaban 5 mg tablet (Eliquis) 5 mg PO BID #60 tabs 08/12/23 insulin lispro 100 unit/mL subcutaneous pen 14 unit (0.14 mL) subcut BREAKFAST DIABETES #15 mL 08/20/23 insulin lispro 100 unit/mL subcutaneous pen 14 unit (0.14 mL) subcut LUNCH DIABETES #15 mL 08/20/23 insulin lispro 100 unit/mL subcutaneous pen 24 unit (0.24 mL) subcut DINNER DIABETES #15 mL 08/20/23 amlodipine 5 mg tablet 5 mg PO DAILY BP #30 tabs 09/30/23 insulin glargine 100 unit/mL (3 mL) subcutaneous pen (Lantus Solostar U-100 Insulin) 58 - 60 unit subcut BID DM 11/25/23 omeprazole 40 mg capsule,delayed release 40 mg PO DAILY 11/25/23 levothyroxine 88 mcg tablet (Euthyrox) 88 mcg PO DAILY 01/19/24 metoprolol tartrate 50 mg tablet 50 mg PO BID 03/02/24 fluticasone fur. 100 mcg-umeclid 62.5 mcg-vilant 25 mcg inhalat.powder (Trelegy Ellipta) 1 inh inhalation DAILY #60 ea 03/03/24 prednisone 20 mg tablet 40 mg (2 x 20 mg) PO DAILY #10 tabs 03/03/24 Hospital Course Operations None Procedures None Summary of Care Provided Minutes Spent on Discharge: 30 Hospital Course: This 69-year-old white female was seen in the emergency room at [facility] with complaints of shortness of breath, she is chronically on oxygen at home. Workup in the emergency room included a CBC which was unremarkable. Chemistry profile was remarkable for a creatinine of 1.12, patient's chest x-ray showed a mild right upper lobe interstitial infiltrate. Patient was admitted to [place] [address] for community-acquired pneumonia and exacerbation of COPD, she was placed on IV antibiotics, when I evaluated the patient I did not feel that she had a significant pneumonia and ordered respiratory panel which was positive for rhinovirus. Patient did not require oxygen above her baseline at home which was 3 L even on ambulation, she was felt to be stable for discharge home on 03/03/2024. Patient was seen and examined on 03/04/2024: On examination she appeared in good health and spirits, she does not appear to be in any distress. Vital signs as documented. Skin warm and dry and without overt rashes. Neck without JVD, thyroid appears normal, trachea is midline, neck is supple. Lungs breath sounds are distant bilaterally. Heart exam notable for irregular rhythm, normal sounds and absence of murmurs, rubs or gallops. Abdomen unremarkable and without evidence of organomegaly, masses, or abdominal aortic enlargement, bowel sounds are present in all 4 quadrants, no abdominal tenderness was noted. Extremities nonedematous, no cyanosis was noted, no clubbing was noted. Neuro: Cranial nerves II through XII are grossly intact, no focal motor deficits were noted, sensation to light touch and pinprick is intact, motor exam 5/5 throughout. Psych: Patient is alert and oriented x3, she does not appear anxious or depressed, she does not appear agitated. Patient was discharged home in stable condition on 03/03/2024 Weight / BMI Weight Weight: 85.9 kg Body Mass Index (BMI) 35.7 ABG / Lab / Microbiology Data 03/03/24 06:31 03/03/24 06:31 Laboratory: Laboratory Results - last 24 hr 03/02/24 15:50: WBC 9.3, RBC 4.15 L, Hgb 12.1, Hct 39.3, MCV 94.7, MCH 29.2, M CHC 30.8 L, RDW Std Deviation 48.1 H, RDW Coeff of Aubrey 14.0, Plt Count 251, MPV 9.8, Immature Gran % (Auto) 0.800, Neut % (Auto) 81.6 H, Lymph % (Auto) 7.4 L, [place] % (Auto) 7.0, Eos % (Auto) 2.8, Baso % (Auto) 0.4, Absolute Neuts (auto) 7.6, Absolute Lymphs (auto) 0.69 L, Nucleated RBC % 0, PT 21.8 H, INR 1.9, APTT 38.5 H, B-Natriuretic Peptide 172.6 H 03/02/24 15:55: Sodium 138, Potassium 3.6, Chloride 109 H, Carbon Dioxide 26.0, Anion Gap 3 L, BUN 17, Creatinine 1.12 H, Estim Creat Clear Calc 47.96, Est GFR (MDRD) Af Amer 62, Est GFR (MDRD) Non-Af 51 L, BUN/Creatinine Ratio 15.2, G lucose 73 L, Calcium 8.9, Total Bilirubin 1.10 H, Direct Bilirubin 0.48 H, AST 15, ALT 14, Alkaline Phosphatase 65, Troponin I High Sens 8, Total Protein 7.6, Albumin 3.1 L, Globulin 4.5 H 03/02/24 16:12: Lactic Acid 0.9 03/02/24 22:20: POC Glucose 179 H 03/02/24 23:20: Urine Color Yellow, Urine Clarity Clear, Urine pH 6.0, Ur Specific [place] 1.010, Urine Protein Negative, Urine Glucose (UA) NEGATIVE, Urine Ketones Negative, Urine Occult Blood Negative, Urine Nitrite Negative, Urine Bilirubin Negative, Urine Urobilinogen Normal, Ur Leukocyte Esterase 500 H , Urine RBC 0 SEEN, Urine WBC 25-50 SEEN, Ur Squamous Epith Cells 5-10 SEEN, Urine Bacteria 3+, Urine Mucus 0 SEEN 03/03/24 06:21: POC Glucose 254 H 03/03/24 06:31: WBC 6.6, RBC 3.85 L, Hgb 11.1 L, Hct 35.6 L, MCV 92.5, MCH 28.8, MCHC 31.2 L, RDW Std Deviation 45.5 H, RDW Coeff of Aubrey 13.6, Plt Count 247, MPV 10.3, Immature Gran % (Auto) 0.800, Neut % (Auto) 91.4 H, Lymph % (Auto) 6.5 L, [place] % (Auto) 1.1, Eos % (Auto) 0.0, Baso % (Auto) 0.2, Absolute Neuts (auto) 6.0, Absolute Lymphs (auto) 0.43 L, Nucleated RBC % 0, Sodium 137, Potassium 4.0, Chloride 109 H, Carbon Dioxide 24.0, Anion Gap 4 L, BUN 17, Creatinine 1.14 H, Estim Creat Clear Calc 46.35, Est GFR (MDRD) Af Amer 61, Est GFR (MDRD) Non- Af 50 L, BUN/Creatinine Ratio 14.9, Glucose 264 H, Calcium 8.8, Total Bilirubin 0.60, AST 13 L, ALT 13, Alkaline Phosphatase 61, Total Protein 7.1, Albumin 2.8 L, Globulin 4.3 H, Albumin/Globulin Ratio 0.7 L 03/03/24 12:19: POC Glucose 449 H Microbiology: Microbiology 03/03/24 08:28 Mucosa - Nasopharyngeal Respiratory Panel (PCR) - Final Rhinovirus 03/02/24 16:12 Mucosa - Nose SARS-CoV-2, Influenza & RSV (PCR) - Final Radiography Diagnostic Testing: Radiology Impression Chest X-Ray 03/02/24 16:50 IMPRESSION: Mild right upper lobe interstitial infiltrate Electronically Signed: Kamari Andino MD at 17:38 EDT , D/C Instructions Discharge Diet: 1800 Calorie Control Diet Weight Bearing Status: Full weight bearing Meaningful Use Info Meaningful Use Meaningful Use Diagnoses (Choose all that apply): None applicable Ischemic Stroke Statin Dosing Therapy Reference: STATIN DOSE THERAPY REFERENCE: * Patients > 75 years receive moderate or high dose statin therapy. * Patients 75 years or YOUNGER should receive HIGH intensity statin dose unless contraindicated. You will be required to document reason for non-treatment if statin daily dose does not meet guidelines. HIGH DOSE STATIN THERAPY DAILY Atorvastatin > than or = to 40 mg Rosuvastatin > than or = to 20 mg Amlodipine + Atorvastatin > than or = to 2.5/40 mg Ezetimibe + Simvastatin 10/80 mg Simvastatin 80mg Discharge Plan Admission Admit Date/Time: 03/02/24 19:31 Primary Reason for Your Visit: rhinovirus infection Attending Provider: Yared Fernández Primary Care Provider: Dylon Murrieta Chi Consulting Providers: Lili Ma Instructions Additional Instructions / Restrictions: Use your albuterol sulfate inhaler 2 puffs 4 times a day until you see your pulmonary doctor Discharge Orders/Prescriptions Prescriptions: New prednisone 20 mg tablet 40 mg PO DAILY Qty: 10 0RF Rx Instructions: 2 tabs daily for 3 days, then 1 tab daily for 4 days then stop Trelegy Ellipta 100-62.5-25 mcg blister with device 1 inh inhalation DAILY Qty: 60 0RF Continued allopurinol 100 mg tablet 100 mg PO DAILY buspirone 10 mg tablet 10 mg PO BID Patient Comments: PER PHARMACY PT TAKES 1 TAB (10 MG) IN THE MORNING AND AFTERNOON AND TAKES 1.5 TAB (15 MG) IN THE EVENING Rx Instructions: PER PHARMACY PT TAKES 1 TAB (10 MG) IN THE MORNING AND AFTERNOON AND TAKES 1.5 TAB (15 MG) IN THE EVENING Saline Mist 0.65 % aerosol,spray 2 spray intranasal TID PRN ranolazine 500 mg tablet extended release 12 hr 500 mg PO BID Qty: 60 11RF atorvastatin 40 MG tablet 40 mg PO QHS Patient Comments: cholesterol duloxetine 60 mg capsule,delayed release(DR/EC) 60 mg PO DAILY Patient Comments: mental health ascorbic acid (vitamin C) 500 MG tablet 500 mg PO DAILY@1700 Patient Comments: Supplement albuterol sulfate 90 mcg/actuation HFA aerosol inhaler 2 puff INHALATION PRN PRN (Reason: COPD) buspirone 10 mg tablet 15 mg PO QHS Patient Comments: PER PHARMACY PT TAKES 1 TAB (10 MG) IN THE MORNING AND AFTERNOON AND TAKES 1.5 TAB (15 MG) IN THE EVENING Rx Instructions: PER PHARMACY PT TAKES 1 TAB (10 MG) IN THE MORNING AND AFTERNOON AND TAKES 1.5 TAB (15 MG) IN THE EVENING nystatin [Nyamyc] 100,000 unit/gram powder 1 applic TOPICAL TID PRN triamcinolone acetonide 0.1 % cream 1 applic TOPICAL DAILY PRN Patient Comments: PT UNSURE IF SHE USES THIS insulin lispro 100 unit/mL insulin pen 14 unit SC LUNCH Qty: 15 0RF Rx Instructions: hold if glucose <100 insulin lispro 100 unit/mL insulin pen 14 unit SC BREAKFAST Qty: 15 0RF Rx Instructions: hold if glucose <100 insulin lispro 100 unit/mL insulin pen 24 unit SC DINNER Qty: 15 0RF Rx Instructions: hold if glucose <100 omeprazole 40 mg capsule,delayed release(DR/EC) 40 mg PO DAILY insulin glargine [Lantus Solostar U-100 Insulin] 100 unit/mL (3 mL) insulin pen 58 - 60 unit SC BID levothyroxine [Euthyrox] 88 mcg tablet 88 mcg PO DAILY metoprolol tartrate 50 mg tablet 50 mg PO BID nitroglycerin 0.4 mg tablet, sublingual 0.4 mg sublingual Q5-15M PRN (Reason: chest pain) Qty: 25 3RF Eliquis 5 mg tablet 5 mg PO BID Qty: 60 11RF amlodipine 5 mg tablet 5 mg PO DAILY Qty: 30 11RF Discontinued Trelegy Ellipta 100-62.5-25 mcg blister with device 1 inh inhalation DAILY Patient Comments: PT RAN OUT OF REFILLS. WAS GOING TO INFORM MD AT NEXT APPT Referrals / Follow Up: Syed Amador MD [Med Staff - Active Staff] - See Referral Note (At your scheduled office visit) Dylon Murrieta Chi, MD [Primary Care Provider] - Within 2 Weeks Disposition Disposition (needs filled in before D/C Order can be placed): Home, Self Care Charges/Coding Visit Charges Inpatient E&M: 50918 Disch Hosp
== END 2024-03-03 16:21 | disposition home or self-care (01) | DRG 190 ==
LOC: ED 18:34 → MS3 20:03
PROVIDERS: Admitting Provider Internal Medicine; Emergency Provider Emergency Medicine; PCP Family Medicine Geriatric Medicine; Referring Provider Internal Medicine; Visit Provider Internal Medicine
DX: J44.0 Chronic obstructive pulmonary disease with (acute) lower respiratory infection (principal); J12.89 Other viral pneumonia; E66.2 Morbid (severe) obesity with alveolar hypoventilation; J96.11 Chronic respiratory failure with hypoxia; I27.20 Pulmonary hypertension, unspecified; E11.22 Type 2 diabetes mellitus with diabetic chronic kidney disease; J44.1 Chronic obstructive pulmonary disease with (acute) exacerbation; N18.32 Chronic kidney disease, stage 3b; E11.40 Type 2 diabetes mellitus with diabetic neuropathy, unspecified; I48.0 Paroxysmal atrial fibrillation; Z79.4 Long term (current) use of insulin; I12.9 Hypertensive chronic kidney disease with stage 1 through stage 4 chronic kidney disease, or unspecified chronic kidney disease; E03.9 Hypothyroidism, unspecified; I25.10 Atherosclerotic heart disease of native coronary artery without angina pectoris; E78.2 Mixed hyperlipidemia; Z91.198 Patient's noncompliance with other medical treatment and regimen for other reason; Z99.81 Dependence on supplemental oxygen; Z79.01 Long term (current) use of anticoagulants; Z79.51 Long term (current) use of inhaled steroids; Z87.891 Personal history of nicotine dependence; Z86.711 Personal history of pulmonary embolism; Z95.5 Presence of coronary angioplasty implant and graft; Z86.718 Personal history of other venous thrombosis and embolism; Z68.35 Body mass index [BMI] 35.0-35.9, adult
CPT/HCPCS: 36415; 71045; 80048; 80053; 80076; 81001; 82962; 83605; 83880; 84484; 85025; 85610; 85730; 87040; 87631; 87633; 93005; 94640; 99284; J7050; A4216; J0696

== ENCOUNTER → 2024-04-20 | Outpatient (CLI) | payer MEDICARE, MEDICAID, SELFPAY ==
[2024-04-20 16:17] LABS: Absolute Lymphocyte Count 0.82 X10^3/uL (0.83-4.51); Absolute Neutrophil Count 6.6 X10^3/uL (2.0-7.7); Basophil# 0.03 X10^3/uL; Basophil% 0.4 % (0-1); Eosinophil# 0.18 X10^3/uL; Eosinophils% 2.2 % (0-5); Hematocrit 37.5 % (37-47); Hemoglobin 11.6 g/dL (12.0-15.0); Lymphocyte # 0.82 X10^3/ul (0.83-4.51); Lymphocyte % 9.9 % (19-41); Mean Corp Hgb Conc 30.9 g/dL (32-36); Mean Corpuscular Hgb 29.7 pg (27.0-32.0); Mean Corpuscular Volume 95.9 fL (81-99); Mean Platelet Vol. 10.6 fl (6.2-12.0); Monocyte# 0.63 X10^3/uL; Monocyte% 7.6 % (0-10); NRBC Flagged by Analyzer 0 % (0-5); Neutrophil # 6.56 X10^3/uL (2.7-7.7); Neutrophil % 78.9 % (47-70); Platelet Count 196 K/mm3 (150-450); RBC Distribution Width CV 14.9 % (11.6-14.6); RBC Distribution Width SD 52.6 fl (35.1-43.9); Red Blood Count 3.91 M/mm3 (4.2-5.4); White Blood Count 8.3 K/mm3 (4.4-11.0)
[2024-04-20 16:39] LABS: Hemoglobin A1c 6.1 % (3.8-5.6)
[2024-04-20 16:44] LABS: Vitamin D,25 Hydroxy 48.5 ng/mL
[2024-04-20 16:50] LABS: ALB/GLOB Ratio 0.8 RATIO (0.9-2.4); AST(SGOT) 12 U/L (15-37); Alanine Aminotransfer ALT/SGPT 15 U/L (13-56); Alkaline Phosphatase 53 U/L (45-117); Anion Gap 4 (5-15); BUN 22 mg/dL (7-18); BUN/Creat Ratio 18.5 RATIO (10-20); Calcium,Total 8.4 mg/dL (8.5-10.1); Chloride 112 mmol/L (98-107); Cholesterol 159 mg/dL (200); Creatinine, Serum 1.19 mg/dL (0.55-1.02); EST Glomerular Filtration Rate 48 mL/min (>60); Est Glom Filt Rate - Afr Amer 58 mL/min (>60); Glucose 82 mg/dL (74-106); High Density Lipoprotein 56 mg/dL; Potassium 3.9 mmol/L (3.5-5.1); Sodium Level 143 mmol/L (136-145); Triglycerides 148 mg/dL; Very Low Density Lipoprotein 30 mg/dL (5-40)
== END | disposition home or self-care (01) ==
LOC: POLAB3 15:17
PROVIDERS: PCP Family Medicine Geriatric Medicine; Visit Provider Family Medicine Geriatric Medicine
DX: I10 Essential (primary) hypertension (principal); E11.65 Type 2 diabetes mellitus with hyperglycemia; E78.5 Hyperlipidemia, unspecified; E55.9 Vitamin D deficiency, unspecified; R68.83 Chills (without fever)
CPT/HCPCS: 36415; 80053; 80061; 82306; 83036; 84443; 85025; 87631

== ENCOUNTER → 2024-07-26 | Outpatient (CLI) | payer MEDICARE, MEDICAID, SELFPAY ==
--- NOTE | 2024-07-26 11:08 | MRI_ITS ---
EXAM: MR LUMBAR SPINE WITHOUT INTRAVENOUS CONTRAST CLINICAL INDICATION: DDD TECHNIQUE: Multiplanar and multisequence MR images of the lumbar spine without intravenous contrast. COMPARISON: November 18, 2023 lumbar spine radiographs. Report of abdomen and pelvis CT August 30, 2019, not provided, but no suspicious bone changes. FINDINGS: VERTEBRAE: Unremarkable. Vertebral body heights are preserved. Normal vertebral bodies and posterior elements. Normal alignment. No spondylolisthesis. There is preservation of the normal lumbar lordosis. SPINAL CORD: Unremarkable. Normal position and signal intensity of the conus medullaris, at the T12-L1 level. SOFT TISSUES: There is an exophytic apparent cyst of the posterior left kidney with a small layer of dependent signal void, this measures 2 cm x 1.6 cm. Partially included appears to be high T2 probably cystic 1.4 cm right kidney lesion. Normal aortic caliber. DISCS/SPINAL CANAL/NEURAL FORAMINA: L1-L2: Unremarkable. Normal disc height and morphology. Normal spinal canal and lateral recesses. Normal neuroforamina. L2-L3: Unremarkable. Normal disc height and morphology. Normal spinal canal and lateral recesses. Normal neuroforamina. L3-L4: Mild decreased T2 and inversion recovery signal in the disc. Mild left uncovertebral osteophyte-disc complex minimally narrowing the proximal left neural foramen. Normal disc height and morphology. Normal spinal canal and lateral recesses. L4-L5: Normal disc height. There is some residual high signal intensity in the disc on inversion recovery images. There is mild annular disc bulge and a very mild left posterior lateral broad-based disc protrusion. There is a small focus of high signal intensity in the disc consistent with small annular tear. Mild left neural foraminal stenosis. No spinal stenosis. L5-S1: Minimally decreased T2 signal intensity in the disc. Tiny focus of high signal intensity in the posterior-lateral right minimally bulging disc, consistent with annular tear. Normal disc height. Normal spinal canal and lateral recesses. Normal neuroforamina. MRI/Spine Lumbar (Routine) IMPRESSION: Mild degenerative changes. Mild multilevel disc bulges and small eccentric annular tears. No significantly focally protruding-herniated disc. Electronically Signed: Harleen Cardenas MD at 2:23 EST ,
== END | disposition home or self-care (01) ==
LOC: MRI 11:04
PROVIDERS: PCP Family Medicine Geriatric Medicine; Referring Provider Clinical Nurse Specialist Adult Health; Visit Provider Clinical Nurse Specialist Adult Health
DX: M51.369 Other intervertebral disc degeneration, lumbar region without mention of lumbar back pain or lower extremity pain (principal)
CPT/HCPCS: 72148

== ENCOUNTER → 2024-07-29 | Outpatient (CLI) | payer MEDICARE, MEDICAID, SELFPAY ==
[2024-07-29 16:53] LABS: Absolute Lymphocyte Count 0.81 X10^3/uL (0.83-4.51); Absolute Neutrophil Count 4.3 X10^3/uL (2.0-7.7); Basophil# 0.02 X10^3/uL; Basophil% 0.3 % (0-1); Eosinophil# 0.17 X10^3/uL; Eosinophils% 2.9 % (0-5); Hematocrit 38.2 % (37-47); Hemoglobin 11.8 g/dL (12.0-15.0); Lymphocyte # 0.81 X10^3/ul (0.83-4.51); Lymphocyte % 13.8 % (19-41); Mean Corp Hgb Conc 30.9 g/dL (32-36); Mean Corpuscular Hgb 29.5 pg (27.0-32.0); Mean Corpuscular Volume 95.5 fL (81-99); Mean Platelet Vol. 9.9 fl (6.2-12.0); Monocyte# 0.49 X10^3/uL; Monocyte% 8.4 % (0-10); NRBC Flagged by Analyzer 0 % (0-5); Neutrophil # 4.33 X10^3/uL (2.7-7.7); Neutrophil % 74.1 % (47-70); Platelet Count 194 K/mm3 (150-450); RBC Distribution Width CV 14.1 % (11.6-14.6); RBC Distribution Width SD 49.3 fl (35.1-43.9); White Blood Count 5.9 K/mm3 (4.4-11.0)
[2024-07-29 17:16] LABS: ALB/GLOB Ratio 0.8 RATIO (0.9-2.4); AST(SGOT) 8 U/L (15-37); Alanine Aminotransfer ALT/SGPT 12 U/L (13-56); Alkaline Phosphatase 56 U/L (45-117); Anion Gap 2 (5-15); BUN 14 mg/dL (7-18); BUN/Creat Ratio 13.5 RATIO (10-20); Calcium,Total 8.6 mg/dL (8.5-10.1); Chloride 112 mmol/L (98-107); Cholesterol 154 mg/dL (200); Creatinine, Serum 1.04 mg/dL (0.55-1.02); EST Glomerular Filtration Rate 56 mL/min (>60); Est Glom Filt Rate - Afr Amer 68 mL/min (>60); Globulin 3.7 g/dL (2.2-4.2); Glucose 91 mg/dL (74-106); High Density Lipoprotein 48 mg/dL; Potassium 3.7 mmol/L (3.5-5.1); Protein, Total 6.7 g/dL (6.4-8.2); Sodium Level 143 mmol/L (136-145); Thyroid Stim Hormone (TSH) 0.588 uIU/mL (0.358-3.740); Triglycerides 135 mg/dL; Very Low Density Lipoprotein 27 mg/dL (5-40)
[2024-07-29 18:22] LABS: Vitamin D,25 Hydroxy 39.4 ng/mL
[2024-07-29 18:57] LABS: Hemoglobin A1c 6.2 % (3.8-5.6)
== END | disposition home or self-care (01) ==
PROVIDERS: PCP Family Medicine Geriatric Medicine; Referring Provider Family Medicine Geriatric Medicine; Visit Provider Family Medicine Geriatric Medicine
DX: E11.65 Type 2 diabetes mellitus with hyperglycemia (principal); E78.5 Hyperlipidemia, unspecified; I10 Essential (primary) hypertension; E55.9 Vitamin D deficiency, unspecified
CPT/HCPCS: 36415; 80053; 80061; 82306; 83036; 84443; 85025

== ENCOUNTER → 2024-10-14 | Outpatient (CLI) | payer MEDICARE, MEDICAID, SELFPAY ==
[2024-10-14 17:04] LABS: Absolute Lymphocyte Count 1.01 X10^3/uL (0.83-4.51); Absolute Neutrophil Count 4.8 X10^3/uL (2.0-7.7); Basophil# 0.04 X10^3/uL; Basophil% 0.6 % (0-1); Eosinophil# 0.17 X10^3/uL; Eosinophils% 2.6 % (0-5); Hematocrit 39.8 % (37-47); Hemoglobin 12.7 g/dL (12.0-15.0); Lymphocyte # 1.01 X10^3/ul (0.83-4.51); Lymphocyte % 15.2 % (19-41); Mean Corp Hgb Conc 31.9 g/dL (32-36); Mean Corpuscular Hgb 31.3 pg (27.0-32.0); Mean Platelet Vol. 10.7 fl (6.2-12.0); Monocyte# 0.56 X10^3/uL; Monocyte% 8.4 % (0-10); NRBC Flagged by Analyzer 0 % (0-5); Neutrophil # 4.78 X10^3/uL (2.7-7.7); Neutrophil % 72.1 % (47-70); Platelet Count 187 K/mm3 (150-450); RBC Distribution Width CV 13.7 % (11.6-14.6); RBC Distribution Width SD 48.7 fl (35.1-43.9); Red Blood Count 4.06 M/mm3 (4.2-5.4); White Blood Count 6.6 K/mm3 (4.4-11.0)
[2024-10-14 17:49] LABS: ALB/GLOB Ratio 0.8 RATIO (0.9-2.4); AST(SGOT) 8 U/L (15-37); Alanine Aminotransfer ALT/SGPT 12 U/L (13-56); Alkaline Phosphatase 58 U/L (45-117); Anion Gap 7 (5-15); BUN 19 mg/dL (7-18); BUN/Creat Ratio 16.2 RATIO (10-20); Calcium,Total 8.5 mg/dL (8.5-10.1); Chloride 108 mmol/L (98-107); Cholesterol 146 mg/dL (200); Creatinine, Serum 1.17 mg/dL (0.55-1.02); EST Glomerular Filtration Rate 49 mL/min (>60); Est Glom Filt Rate - Afr Amer 59 mL/min (>60); Globulin 3.6 g/dL (2.2-4.2); Glucose 223 mg/dL (74-106); High Density Lipoprotein 53 mg/dL; Potassium 4.2 mmol/L (3.5-5.1); Protein, Total 6.6 g/dL (6.4-8.2); Sodium Level 140 mmol/L (136-145); Triglycerides 173 mg/dL; Very Low Density Lipoprotein 35 mg/dL (5-40)
[2024-10-14 18:06] LABS: Vitamin D,25 Hydroxy 46.2 ng/mL
== END | disposition home or self-care (01) ==
LOC: POLAB3 16:50
PROVIDERS: PCP Family Medicine Geriatric Medicine; Visit Provider Family Medicine Geriatric Medicine
DX: E11.65 Type 2 diabetes mellitus with hyperglycemia (principal); I10 Essential (primary) hypertension; E78.5 Hyperlipidemia, unspecified; E55.9 Vitamin D deficiency, unspecified
CPT/HCPCS: 36415; 80053; 80061; 82306; 83036; 84443; 85025

== ENCOUNTER 2024-12-04 15:12 | Emergency (ER) | payer MEDICARE, MEDICAID, SELFPAY ==
[2024-12-04] VITALS (12 sets, daily range): BP systolic 83–161; BP diastolic 65–109; PULSE 68–114; RESP 16–27; TEMP 36.7; O2SAT 86–100; BMI 36.6
--- NOTE | 2024-12-04 15:25 | EKG12_ITS ---
Test Reason : CP Blood Pressure : */* mmHG Vent. Rate : 119 BPM Atrial Rate : * BPM P-R Int : * ms QRS Dur : 80 ms QT Int : 328 ms P-R-T Axes : * -32 160 degrees QTcB Int : 461 ms Atrial fibrillation with rapid ventricular response Left axis deviation Inferior infarct , age undetermined ST & T wave abnormality, consider lateral ischemia Abnormal ECG Confirmed by ALETA ABRAHAM, ALVAREZ ([id number]), publication editor YAN SUH ([id number]) on 12/06/2024 8:19:33 AM Referred By: Confirmed By: ALVAREZ RIVER MD
--- NOTE | 2024-12-04 15:27 | EDS_ITS ---
HPI <MORGAN Lozano - Last Filed: 12/04/24 21:48> History of Present Illness Chief Complaint: Chest Pain Narrative Narrative: 69-year-old female with PMH of HTN, HLD, DM2, CAD, COPD on 3 L with smoking while wearing her nasal cannula oxygen this morning and sustained facial matos to her nose and cheeks. She was evaluated at [facility] emergency room and was being transferred to [facility] burn [facility] by EMS when she started complaining of chest pain so was diverted here for evaluation. She states it is a dull ache in the center of her chest. There is no radiation. No increased shortness of breath or nausea or vomiting. No recent fever or increased cough or sputum production. She takes metoprolol 50 mg and Eliquis 5 mg twice daily and states she forgot her morning dose today, but has otherwise been compliant. PFSH <MORGAN Lozano - Last Filed: 12/04/24 21:48> [facility] Medical History ESBL (extended spectrum beta-lactamase) producing bacteria infection Community acquired pneumonia Pneumonia COPD exacerbation Open wound Chronic kidney disease (CKD) History of echocardiogram History of atrial fibrillation Vertigo Wears hearing aid Wears dentures Wears glasses Post-menopausal Cancer Anxiety Tinnitus Thyroid disease Insulin dependent diabetes mellitus Diabetes Uses wheelchair Walker as ambulation aid Arthritis History of renal disease Anemia High cholesterol Pulmonary embolism DVT (deep venous thrombosis) Excessive bleeding Back pain Injury of back Migraine headache Difficulty swallowing History of diverticulitis Gastroparesis History of IBS Gastric reflux Former smoker Sleep apnea On home oxygen therapy Diabetic neuropathy History of edema History of Holter monitoring History of stress test History of CHF (congestive heart failure) History of heart attack Cardiology follow-up encounter Paroxysmal atrial fibrillation Chronic kidney disease (CKD) stage G3b/A1, moderately decreased glomerular filtration rate (GFR) between 30-44 mL/min/1.73 square meter and albuminuria creatinine ratio less than 30 mg/g Anxiety Closed intertrochanteric fracture of left femur Fall at home Broken rib Pulmonary hypertension Gastroparesis Presence of stent in coronary artery (~12/07/03) Mixed hyperlipidemia History of cervical cancer DDD (degenerative disc disease) Lung nodule RLS (restless legs syndrome) Pulmonary embolism History of DVT (deep vein thrombosis) Atherosclerotic heart disease of [place] coronary artery without angina pectoris Essential hypertension Paroxysmal A-fib Diabetes mellitus type 2 in obese PARESH (obstructive sleep apnea) Chronic respiratory insufficiency COPD (chronic obstructive pulmonary disease) GERD (gastroesophageal reflux disease) Hypothyroidism Home Medications ?Medication ?Instructions ?Recorded ?Last Taken ?Type atorvastatin 40 mg tablet 40 mg PO QHS CHOLESTEROL LOW ERING 02/03/18 03/01/24 History ascorbic acid (vitamin C) 500 mg 500 mg PO DAILY@1700 supplement 05/17/18 03/02/24 History tablet buspirone 10 mg tablet 10 mg PO BID depression 05/2403/02/24 History duloxetine 60 mg capsule,delayed 60 mg PO DAILY MENTAL HEALTH 06/12/22 03/02/24 History release nitroglycerin 0.4 mg sublingual 0.4 mg sublingual Q5-1 5M PRN chest 10/21/22 11/26/23 Rx tablet pain #25 tabs albuterol sulfate 90 mcg/actuation 2 puff inhalation P RN PRN COPD 12/12/22 11/26/23 History aerosol inhaler buspirone 10 mg tablet 15 mg PO QHS 06/03/23 History insulin lispro 100 unit/mL 14 unit (0.14 mL) subcut BR EAKFAST 08/20/23 03/02/24 Rx subcutaneous pen DIABETES #15 mL insulin lispro 100 unit/mL 14 unit (0.14 mL) subcut AAYUSH [facility] 08/20/23 03/02/24 Rx subcutaneous pen DIABETES #15 mL insulin lispro 100 unit/mL 24 unit (0.24 mL) subcut DI NNER 08/20/23 03/01/24 Rx subcutaneous pen DIABETES #15 mL insulin glargine 100 unit/mL (3 58 - 60 unit subcut BI D DM 11/25/23 03/02/24 History mL) subcutaneous pen (Lantus Solostar U-100 Insulin) omeprazole 40 mg capsule,delayed 40 mg PO DAILY 03/02/24 History release levothyroxine 88 mcg tablet 88 mcg PO DAILY 01/19/24 0 03/02/24 History (Euthyrox) metoprolol tartrate 50 mg tablet 50 mg PO BID 03/02/24 03/02/24 History apixaban 5 mg tablet (Eliquis) 5 mg PO BID #60 tabs Unknown Rx amlodipine 5 mg tablet 5 mg PO DAILY for blood pres sure 08/31/24 Unknown Rx #30 TABLETS Allergy/AdvReac Type Severity Reaction Status Date / Time metoclopramide (From Reglan) Allergy Intermediate Itching Verified 11/04/24 14:20 ciprofloxacin (From Cipro) Allergy Hives Verified 11/04/24 14:20 latex Allergy matos me Verified 11/04/24 14:20 niacin (From Niaspan Allergy Hives Verified 11/04/24 14:20 Extended-Release) ranolazine (From Ranexa) Allergy Itching Verified 11/04/24 14:20 orphenadrine AdvReac Mild PT UNABLE Verified 11/04/24 14:20 TO RESPOND-NEEDS F/U adhesive tape AdvReac Other Verified 11/04/24 14:20 orphenadrine citrate (From AdvReac groggy Verified 11/04/24 14:20 Norgesic) Family History Mother CAD (coronary artery disease) Father CAD (coronary artery disease) Brother CAD (coronary artery disease) Asthma Sister Hypertension Sister Diabetes Sister Heart disease Surgical History History of hip surgery History of coronary artery stent placement (06/04/23) History of cardiac catheterization Hx of surgical procedure Presence of coronary angioplasty implant and graft (~12/07/03) History of left heart catheterization (LHC) (~09/28/19) History of surgery on wrist History of tubal ligation History of nasal surgery History of knee surgery History of hernia repair History of cholecystectomy History of total abdominal hysterectomy Social History Smoking Status: Current every day smoker tobacco type: cigarettes quit status: has quit before alcohol intake: never substance use type: does not use caffeine: Yes Type: coffee Number of servings: 1 ROS <MORGAN Lozano - Last Filed: 12/04/24 21:48> ROS ED ROS Narrative Constitutional: Negative for fever, chills, malaise. CVS: Positive for chest pain. Negative for palpitations. Respiratory: Negative for shortness of breath. GI: Negative for abdominal pain, nausea, vomiting. EXAM <MORGAN Lozano - Last Filed: 12/04/24 21:48> Physical Exam Narrative Exam Narrative: CONST: Patient sitting in no acute distress. EYES: Normal inspection. HEAD: Small area of second-degree matos on her nose and cheeks. Airway patent, breathing easily. Wearing nasal cannula in her mouth. NECK: Normal inspection. RESP: No respiratory distress, CTAB. CVS: Regular rate and rhythm, no murmur, no gallop. EXTREMITIES: Normal appearance, no pedal edema. NEURO: Alert and answering questions appropriately. PSYCH: Normal affect. Const Vital Signs: 12/04/24 15:13 12/04/24 15:41 12/04/24 15:47 Temperature 98.0 F Temperature Source Oral Pulse Rate 114 H 92 Respiratory Rate 27 H 18 Blood Pressure 112/73 130/79 H Blood Pressure Mean 86 96 Pulse Ox 86 95 95 Oxygen Delivery Method Room Air Nasal Cannula Nasal Cannula Oxygen Flow Rate (L/min) 6 3 12/04/24 15:50 12/04/24 16:00 12/04/24 17:00 Temperature Temperature Source Pulse Rate 109 H 108 H 101 H Respiratory Rate 23 H 16 20 H Blood Pressure 83/65 L 136/100 H 139/109 H Blood Pressure Mean 71 112 120 Pulse Ox 93 97 98 Oxygen Delivery Method Nasal Cannula Oxygen Flow Rate (L/min) 3 12/04/24 18:00 12/04/24 19:00 12/04/24 20:00 Temperature Temperature Source Pulse Rate 75 79 81 Respiratory Rate 17 20 H 23 H Blood Pressure 122/82 H 123/93 H 122/92 H Blood Pressure Mean 95 103 102 Pulse Ox 99 98 99 Oxygen Delivery Method Nasal Cannula Nasal Cannula Nasal Cannula Oxygen Flow Rate (L/min) 12/04/24 21:00 12/04/24 22:00 Temperature Temperature Source Pulse Rate 69 74 Respiratory Rate 17 18 Blood Pressure 135/70 H 144/96 H Blood Pressure Mean 91 112 Pulse Ox 100 99 Oxygen Delivery Method Nasal Cannula Nasal Cannula Oxygen Flow Rate (L/min) 6 <Dr. Avinash Hodge MD - Last Filed: 12/04/24 22:59> Physical Exam Const Vital Signs: 12/04/24 15:13 12/04/24 15:41 12/04/24 15:47 Temperature 98.0 F Temperature Source Oral Pulse Rate 114 H 92 Respiratory Rate 27 H 18 Blood Pressure 112/73 130/79 H Blood Pressure Mean 86 96 Pulse Ox 86 95 95 Oxygen Delivery Method Room Air Nasal Cannula Nasal Cannula Oxygen Flow Rate (L/min) 6 3 12/04/24 15:50 12/04/24 16:00 12/04/24 17:00 Temperature Temperature Source Pulse Rate 109 H 108 H 101 H Respiratory Rate 23 H 16 20 H Blood Pressure 83/65 L 136/100 H 139/109 H Blood Pressure Mean 71 112 120 Pulse Ox 93 97 98 Oxygen Delivery Method Nasal Cannula Oxygen Flow Rate (L/min) 3 12/04/24 18:00 12/04/24 19:00 12/04/24 20:00 Temperature Temperature Source Pulse Rate 75 79 81 Respiratory Rate 17 20 H 23 H Blood Pressure 122/82 H 123/93 H 122/92 H Blood Pressure Mean 95 103 102 Pulse Ox 99 98 99 Oxygen Delivery Method Nasal Cannula Nasal Cannula Nasal Cannula Oxygen Flow Rate (L/min) 12/04/24 21:00 12/04/24 22:00 Temperature Temperature Source Pulse Rate 69 74 Respiratory Rate 17 18 Blood Pressure 135/70 H 144/96 H Blood Pressure Mean 91 112 Pulse Ox 100 99 Oxygen Delivery Method Nasal Cannula Nasal Cannula Oxygen Flow Rate (L/min) 6 [facility] <MORGAN Lozano - Last Filed: 12/04/24 21:48> [facility] Narrative Medical decision making narrative: 69-year-old female has first and second-degree facial matos to her nose and cheeks from smoking a cigarette while wearing her chronic 3 L nasal cannula oxygen for COPD. She has soot and swelling in her nostrils but no matos in her mouth and is breathing easily. She is wearing her nasal cannula oxygen in her mouth as well. Vital signs show elevated heart rate of 114 and she is in A-fib RVR. I reviewed her medications and questioned her and she states she forgot to take her metoprolol this evening so I ordered p.o. metoprolol to tartrate 50 mg. Cardiac workup ordered. EKG is A-fib RVR around 119. Serial troponins are 16, 18, delta pending. CXR shows no acute process. Notes she could have the beginning of pulmonary edema but she is on her baseline oxygen is no clinical signs of fluid overload. Since her arrival she has not had further chest pain in the emergency department. I have personally performed a face to face assessment of the patient and have reviewed the SORAYA Note. I performed a substantive portion of the visit including all aspects of the following. My meza findings include: History is 69-year-old female was seen earlier today the [facility] was being transported to [facility] for facial matos and and route developed lower sternal chest pain. It is since resolved. Patient is on Eliquis due to history of A-fib and prior blood clots. Go Exam is [well-appearing 69-year-old female. Vital signs are stable she is in A- fib and tachycardic. After he rate around 110. Pulse ox is 97% on oxygen she is typically on oxygen. H EENT exam pupils round reactive light. She has secondary matos around her mouth. No trouble breathing or swallowing. No soot. Neck nontender. Lungs clear equal and symmetrical bilaterally. Heart A-fib rate about 100 220. Irregular. Chest wall nontender. Abdomen soft nondistended normal bowel sounds without peritoneal signs. She has a incisional hernia. It easily reduces. Moving all 4 extremities. Nontender. No cords. Calves nontender. Neurologically she is awake and alert.] Medical Decision Making [69-year-old female with chest pain is since resolved to undergo cardiac workup.] Other additions or changes: [None] Lab Data Attestation: I reviewed the patient's lab results. Labs: Laboratory Results - last 24 hr 12/04/24 12/04/24 12/04/24 15:19 17:35 21:47 WBC 8.1 RBC 4.11 L Hgb 12.9 Hct 39.9 MCV 97.1 MCH 31.4 MCHC 32.3 RDW Std Deviation 47.1 H RDW Coeff of Aubrey 13.2 Plt Count 181 MPV 10.4 Immature Gran % (Auto) 0.500 Neut % (Auto) 76.4 H Lymph % (Auto) 11.9 L [place] % (Auto) 7.9 Eos % (Auto) 3.2 Baso % (Auto) 0.1 Absolute Neuts (auto) 6.2 Absolute Lymphs (auto) 0.96 Nucleated RBC % 0 Sodium 144 Potassium 3.3 Chloride 107 Carbon Dioxide 23.9 Anion Gap 12 BUN 9 Creatinine 0.89 Estim Creat Clear Calc 60.09 Est GFR (MDRD) Non-Af 71 BUN/Creatinine Ratio 10.6 Glucose 112 H Calcium 8.4 Troponin T High Sens 16 H Troponin T Hi Sens 2 Hr 18 H Troponin T Hi Sens 4Hr 18 H Radiography Diagnostic Testing: Clinical Impression(s) from Imaging Studies Chest X-Ray 12/04/24 15:53 IMPRESSION: Cardiac enlargement. No focal infiltrate is identified. Incipient pulmonary edema. Reading Location: [facility] ED attending interpretation 1 view chest x-ray shows cardiomegaly, no acute infiltrate. EKG Initial EKG: Attestation: I personally reviewed and interpreted this EKG as follows: Comments: A-fib RVR at 119 bpm Left axis deviation slight ST depressions V3 through V6 <Dr. Avinash Hodeg MD - Last Filed: 12/04/24 22:59> MDM MDM Narrative Medical decision making narrative: 69-year-old female has first and second-degree facial matos to her nose and cheeks from smoking a cigarette while wearing her chronic 3 L nasal cannula oxygen for COPD. She has soot and swelling in her nostrils but no matos in her mouth and is breathing easily. She is wearing her nasal cannula oxygen in her mouth as well. Vital signs show elevated heart rate of 114 and she is in A-fib RVR. I reviewed her medications and questioned her and she states she forgot to take her metoprolol this evening so I ordered p.o. metoprolol to tartrate 50 mg. Cardiac workup ordered. EKG is A-fib RVR around 119. Serial troponins are 16, 18, delta pending. CXR shows no acute process. Notes she could have the beginning of pulmonary edema but she is on her baseline oxygen is no clinical signs of fluid overload. Since her arrival she has not had further chest pain in the emergency department. I have personally performed a face to face assessment of the patient and have reviewed the SORAYA Note. I performed a substantive portion of the visit including all aspects of the following. My meza findings include: History is 69-year-old female was seen earlier today the [facility] was being transported to [facility] for facial matos and and route developed lower sternal chest pain. It is since resolved. Patient is on Eliquis due to history of A-fib and prior blood clots. Go Exam is [well-appearing 69-year-old female. Vital signs are stable she is in A- fib and tachycardic. After he rate around 110. Pulse ox is 97% on oxygen she is typically on oxygen. H EENT exam pupils round reactive light. She has secondary matos around her mouth. No trouble breathing or swallowing. No soot. Neck nontender. Lungs clear equal and symmetrical bilaterally. Heart A-fib rate about 100 220. Irregular. Chest wall nontender. Abdomen soft nondistended normal bowel sounds without peritoneal signs. She has a incisional hernia. It easily reduces. Moving all 4 extremities. Nontender. No cords. Calves nontender. Neurologically she is awake and alert.] Medical Decision Making [69-year-old female with chest pain is since resolved to undergo cardiac workup.] Other additions or changes: [Repeat exam patient is doing well at 10:55 PM. Complaining of mild pain to her facial matos and a headache. Should be given for morphine. Her A-fib RVR is well-controlled currently in the 80s. Initially she was being transferred from [facility] to [place] [facility]. She had diverted here because of her chest discomfort. [facility] History & Record Review Discussion w/independent historian: Patient Lab Data Lab results narrative: CBC white count 8.1. H&H 12 and 39. Platelets 181. Electrolytes show a gap of 12. BUN of 9 creatinine 0.8. Glucose 112. Initial troponin 16. 2-hour troponin 18. 4-hour troponin 18 also. Chest x-ray chronic changes. Cardiomegaly. No acute process. Labs: Laboratory Results - last 24 hr 12/04/24 12/04/24 12/04/24 15:19 17:35 21:47 WBC 8.1 RBC 4.11 L Hgb 12.9 Hct 39.9 MCV 97.1 MCH 31.4 MCHC 32.3 RDW Std Deviation 47.1 H RDW Coeff of Aubrey 13.2 Plt Count 181 MPV 10.4 Immature Gran % (Auto) 0.500 Neut % (Auto) 76.4 H Lymph % (Auto) 11.9 L [place] % (Auto) 7.9 Eos % (Auto) 3.2 Baso % (Auto) 0.1 Absolute Neuts (auto) 6.2 Absolute Lymphs (auto) 0.96 Nucleated RBC % 0 Sodium 144 Potassium 3.3 Chloride 107 Carbon Dioxide 23.9 Anion Gap 12 BUN 9 Creatinine 0.89 Estim Creat Clear Calc 60.09 Est GFR (MDRD) Non-Af 71 BUN/Creatinine Ratio 10.6 Glucose 112 H Calcium 8.4 Troponin T High Sens 16 H Troponin T Hi Sens 2 Hr 18 H Troponin T Hi Sens 4Hr 18 H Radiography Chest X-Ray - ED: 1 View, Read by ED Physician, Read by Radiologist, Lungs, Mediastinum, Bony Structures, No Acute Disease, Chronic Changes and Cardiomegaly Diagnostic Testing: Clinical Impression(s) from Imaging Studies Chest X-Ray 12/04/24 15:53 IMPRESSION: Cardiac enlargement. No focal infiltrate is identified. Incipient pulmonary edema. Reading Location: [facility] Rhythm Strip Rhythm Strip: A-fib Rate: 119 Ectopy: None Discharge Plan Triage Chief Complaint: Chest Pain ED Midlevel Provider: Lynne Le ED Provider: Avinash Hodge Dx/Rx/DC Orders Clinical Impression: Atrial fibrillation with RVR, Chest pain, Burn of face, second degree Prescriptions: No Action buspirone 10 mg tablet 10 mg PO BID Patient Comments: PER PHARMACY PT TAKES 1 TAB (10 MG) IN THE MORNING AND AFTERNOON AND TAKES 1.5 TAB (15 MG) IN THE EVENING Rx Instructions: PER PHARMACY PT TAKES 1 TAB (10 MG) IN THE MORNING AND AFTERNOON AND TAKES 1.5 TAB (15 MG) IN THE EVENING atorvastatin 40 MG tablet 40 mg PO QHS Patient Comments: cholesterol duloxetine 60 mg capsule,delayed release(DR/EC) 60 mg PO DAILY Patient Comments: mental health ascorbic acid (vitamin C) 500 MG tablet 500 mg PO DAILY@1700 Patient Comments: Supplement albuterol sulfate 90 mcg/actuation HFA aerosol inhaler 2 puff INHALATION PRN PRN (Reason: COPD) buspirone 10 mg tablet 15 mg PO QHS Patient Comments: PER PHARMACY PT TAKES 1 TAB (10 MG) IN THE MORNING AND AFTERNOON AND TAKES 1.5 TAB (15 MG) IN THE EVENING Rx Instructions: PER PHARMACY PT TAKES 1 TAB (10 MG) IN THE MORNING AND AFTERNOON AND TAKES 1.5 TAB (15 MG) IN THE EVENING insulin lispro 100 unit/mL insulin pen 14 unit SC LUNCH Qty: 15 0RF Rx Instructions: hold if glucose <100 insulin lispro 100 unit/mL insulin pen 14 unit SC BREAKFAST Qty: 15 0RF Rx Instructions: hold if glucose <100 insulin lispro 100 unit/mL insulin pen 24 unit SC DINNER Qty: 15 0RF Rx Instructions: hold if glucose <100 omeprazole 40 mg capsule,delayed release(DR/EC) 40 mg PO DAILY insulin glargine [Lantus Solostar U-100 Insulin] 100 unit/mL (3 mL) insulin pen 58 - 60 unit SC BID levothyroxine [Euthyrox] 88 mcg tablet 88 mcg PO DAILY metoprolol tartrate 50 mg tablet 50 mg PO BID nitroglycerin 0.4 mg tablet, sublingual 0.4 mg sublingual Q5-15M PRN (Reason: chest pain) Qty: 25 3RF Eliquis 5 mg tablet 5 mg PO BID Qty: 60 11RF amlodipine 5 mg tablet 5 mg PO DAILY Qty: 30 11RF Primary Care Provider: Dylon Murrieta Chi Referrals: Dylon Murrieta Chi, MD [Primary Care Provider] - Print Language: Greenlandic Disposition Disposition: Acute Care Hospital
[2024-12-04 15:36] LABS: Absolute Lymphocyte Count 0.96 X10^3/uL (0.83-4.51); Absolute Neutrophil Count 6.2 X10^3/uL (2.0-7.7); Basophil# 0.01 X10^3/uL; Basophil% 0.1 % (0-1); Eosinophil# 0.26 X10^3/uL; Eosinophils% 3.2 % (0-5); Hematocrit 39.9 % (37-47); Hemoglobin 12.9 g/dL (12.0-15.0); Lymphocyte # 0.96 X10^3/ul (0.83-4.51); Lymphocyte % 11.9 % (19-41); Mean Corp Hgb Conc 32.3 g/dL (32-36); Mean Corpuscular Hgb 31.4 pg (27.0-32.0); Mean Corpuscular Volume 97.1 fL (81-99); Mean Platelet Vol. 10.4 fl (6.2-12.0); Monocyte# 0.64 X10^3/uL; Monocyte% 7.9 % (0-10); NRBC Flagged by Analyzer 0 % (0-5); Neutrophil # 6.19 X10^3/uL (2.7-7.7); Neutrophil % 76.4 % (47-70); Platelet Count 181 K/mm3 (150-450); RBC Distribution Width CV 13.2 % (11.6-14.6); RBC Distribution Width SD 47.1 fl (35.1-43.9); Red Blood Count 4.11 M/mm3 (4.2-5.4); White Blood Count 8.1 K/mm3 (4.4-11.0)
--- NOTE | 2024-12-04 15:53 | RAD_ITS ---
PROCEDURE: CHEST 1 VIEW (PORTABLE) 12/04/2024 REASON FOR EXAM: CHEST PAIN TECHNIQUE: Frontal view of the chest. COMPARISON: FINDINGS: Heart size is enlarged. Body habitus limits sensitivity. No pneumothorax or pleural effusion. Bronchial thickening. Equivocal incipient edema. RAD/Chest 1 View (Portable) IMPRESSION: Cardiac enlargement. No focal infiltrate is identified. Incipient pulmonary e ilana. Reading Location: [id number]
[2024-12-04 16:00] LABS: Anion Gap 12 (5-15); BUN 9 mg/dL (4-19); BUN/Creat Ratio 10.6 RATIO (10-20); Calcium,Total 8.4 mg/dL (7.6-11.0); Carbon Dioxide 23.9 mmol/L (21.0-32.0); Chloride 107 mmol/L (98-108); Creatinine, Serum 0.89 mg/dL (0.70-1.20); EST Glomerular Filtration Rate 71 (>60); Estimated Creatinine Clearance 60.09 ml/min (50-250); Glucose 112 mg/dL (70-99); Potassium 3.3 mmol/L (3.3-5.1); Sodium Level 144 mmol/L (133-145); Troponin T High Sensitivity 16 ng/L (<=14)
[2024-12-04] MEDS: Metoprolol Tartrate 50 MG Tablet PO (16:13)
[2024-12-04 18:25] LABS: Troponin T High Sens 2 HR 18 ng/L (<=14)
[2024-12-04] MEDS: Mineral Oil/Petrolatum Cr 1.75oz Bottle 1 APPLIC TOPICAL (18:55)
[2024-12-04] MEDS: APIXABAN 5 MG TABLET PO (21:52)
[2024-12-04 22:47] LABS: Troponin T High Sens 4 HR 18 ng/L (<=14)
[2024-12-04] MEDS: Morphine 4 MG/ML Syringe IV (23:14)
[2024-12-05 00:03] VITALS: BP 146/120; PULSE 70; RESP 19; O2SAT 99
[2024-12-05 00:30] VITALS: O2SAT 96
[2024-12-05 00:52] VITALS: BP 142/89; PULSE 93; RESP 20; TEMP 37; O2SAT 93
== END 2024-12-05 01:25 | disposition short-term general hospital (02) ==
PROVIDERS: Physician Assistant; Emergency Provider Emergency Medicine; PCP Family Medicine Geriatric Medicine; Visit Provider Emergency Medicine
DX: I48.0 Paroxysmal atrial fibrillation (principal); I50.9 Heart failure, unspecified; I13.0 Hypertensive heart and chronic kidney disease with heart failure and stage 1 through stage 4 chronic kidney disease, or unspecified chronic kidney disease; J44.9 Chronic obstructive pulmonary disease, unspecified; E11.22 Type 2 diabetes mellitus with diabetic chronic kidney disease; Z79.4 Long term (current) use of insulin; N18.32 Chronic kidney disease, stage 3b; T44.7X6A Underdosing of beta-adrenoreceptor antagonists, initial encounter; Z91.148 Patient's other noncompliance with medication regimen for other reason; T20.26XA Burn of second degree of forehead and cheek, initial encounter; T20.24XA Burn of second degree of nose (septum), initial encounter; X04.XXXA Exposure to ignition of highly flammable material, initial encounter; K43.2 Incisional hernia without obstruction or gangrene; I25.10 Atherosclerotic heart disease of native coronary artery without angina pectoris; E03.9 Hypothyroidism, unspecified; E78.2 Mixed hyperlipidemia; G47.33 Obstructive sleep apnea (adult) (pediatric); K21.9 Gastro-esophageal reflux disease without esophagitis; F17.210 Nicotine dependence, cigarettes, uncomplicated; Z79.01 Long term (current) use of anticoagulants; Z99.81 Dependence on supplemental oxygen; Z79.899 Other long term (current) drug therapy; Z95.5 Presence of coronary angioplasty implant and graft; Z79.890 Hormone replacement therapy
CPT/HCPCS: 71045; 80048; 84484; 85025; 93005; 96374; 99285; A4216

== ENCOUNTER → 2025-03-23 | Outpatient (CLI) | payer MEDICARE, MEDICAID, SELFPAY ==
--- NOTE | 2025-03-23 10:46 | NM_ITS ---
PROCEDURE: GASTRIC EMPTYING STUDY - 4 HR 03/23/2025 REASON FOR EXAM: EARLY SATIETY COMPARISON: None. TECHNIQUE: The patient ingested a standard meal of 2 eggs, 2 slices of bread, 2 packets of butter, and 6 oz water. There was no vomiting postprandially. Anterior and posterior planar images of the upper abdomen were obtained for 1 minute immediately following the meal at 1h, 2h and 4h if more than 10% of the activity persisted within the stomach. Regions of interest were drawn, and a geometric mean was used to calculate a [id number]. Medications taken in the past 24 hours that may affect gastric emptying: None RADIOPHARMACEUTICAL: Technetium 99 M sulfur colloid DOSE 1.0mCi orally, with the solid meal. FINDINGS: Images do not demonstrate the presence of gastroesophageal reflux. Linear fit gastric emptying half-time of 287.5 minutes. Percent activity remaining in stomach: 1 hour 78 % (normal 37-90%) 2 hours: 76 % (normal 30-60%) 4 hours: 61 % (normal 0-10%) NM/Gastric Emptying Study - 4 HR IMPRESSION: Delayed solid phase gastric emptying. Reading Location: [place] [id number]
--- NOTE | 2025-03-23 10:46 | NM_ITS ---
PROCEDURE: GASTRIC EMPTYING STUDY - 4 HR 03/23/2025 REASON FOR EXAM: EARLY SATIETY COMPARISON: None. TECHNIQUE: The patient ingested a standard meal of 2 eggs, 2 slices of bread, 2 packets of butter, and 6 oz water. There was no vomiting postprandially. Anterior and posterior planar images of the upper abdomen were obtained for 1 minute immediately following the meal at 1h, 2h and 4h if more than 10% of the activity persisted within the stomach. Regions of interest were drawn, and a geometric mean was used to calculate a [id number]. Medications taken in the past 24 hours that may affect gastric emptying: None RADIOPHARMACEUTICAL: Technetium 99 M sulfur colloid DOSE 1.0mCi orally, with the solid meal. FINDINGS: Images do not demonstrate the presence of gastroesophageal reflux. Linear fit gastric emptying half-time of 287.5 minutes. Percent activity remaining in stomach: 1 hour 78 % (normal 37-90%) 2 hours: 76 % (normal 30-60%) 4 hours: 61 % (normal 0-10%) NM/Gastric Emptying Study - 4 HR IMPRESSION: Delayed solid phase gastric emptying. Reading Location: [place] [id number]
== END | disposition home or self-care (01) ==
LOC: NM 10:42
PROVIDERS: PCP Family Medicine Geriatric Medicine; Referring Provider Nurse Practitioner Acute Care; Visit Provider Nurse Practitioner Acute Care
DX: R19.7 Diarrhea, unspecified (principal); K21.9 Gastro-esophageal reflux disease without esophagitis; R68.81 Early satiety
CPT/HCPCS: 78264; A9541

== ENCOUNTER → 2025-04-13 | Outpatient (CLI) | payer MEDICARE, MEDICAID, SELFPAY ==
[2025-04-13 16:44] LABS: Hematocrit 40.7 % (37-47); Hemoglobin 12.9 g/dL (12.0-15.0); Immature Granulocytes Count 0.040 X10^3/uL (0.0-0.0); Mean Corp Hgb Conc 31.7 g/dL (32-36); Mean Corpuscular Volume 91.3 fL (81-99); Mean Platelet Vol. 10.7 fl (6.2-12.0); NRBC Flagged by Analyzer 0 % (0-5); Platelet Count 171 K/mm3 (150-450); RBC Distribution Width CV 15.3 % (11.6-14.6); RBC Distribution Width SD 50.3 fl (35.1-43.9); Red Blood Count 4.46 M/mm3 (4.2-5.4); White Blood Count 6.0 K/mm3 (4.4-11.0)
[2025-04-13 18:12] LABS: AST(SGOT) 21 U/L (<=31); Alanine Aminotransfer ALT/SGPT 8 U/L (<=34); Albumin, Serum 3.6 g/dL (3.4-4.8); Alkaline Phosphatase 89 U/L (35-104); Anion Gap 13 (5-15); BUN 16 mg/dL (4-19); BUN/Creat Ratio 13.4 RATIO (10-20); Calcium,Total 8.8 mg/dL (7.6-11.0); Carbon Dioxide 20.7 mmol/L (21.0-32.0); Chloride 107 mmol/L (98-108); Cholesterol 114 mg/dL (<=200); Globulin 3.4 g/dL (2.2-4.2); Glucose 249 mg/dL (70-99); Low Density Lipoprotein Calc. 43 mg/dL; Potassium 4.2 mmol/L (3.3-5.1); Triglycerides 170 mg/dL; Very Low Density Lipoprotein 34 mg/dL (5-40); Vitamin D,25 Hydroxy 57.3 ng/mL (30-100); cholesterol:hdl ratio screen 3.10
[2025-04-14 00:12] LABS: Xtra Tube Kwok EXTRA TUBE
== END | disposition home or self-care (01) ==
LOC: POLAB3 16:09
PROVIDERS: PCP Family Medicine Geriatric Medicine; Visit Provider Family Medicine Geriatric Medicine
DX: E11.65 Type 2 diabetes mellitus with hyperglycemia (principal); I10 Essential (primary) hypertension; E55.9 Vitamin D deficiency, unspecified; E78.5 Hyperlipidemia, unspecified
CPT/HCPCS: 36415; 80053; 80061; 82306; 83036; 84443; 85025

== ENCOUNTER 2025-06-19 13:35 | Emergency (ER) | payer MEDICARE, MEDICAID, SELFPAY ==
--- OUTSIDE RECORDS SUMMARY | 2025-05-14 15:43 | XMS RPT_ITS ---
Author Name Auto Generated Organization OHIP Care Team Providers [facility] Name Role Phone SELF Referring Unavailable DEMETRIA RIOS Attending Unavailable JUDYMAEGAN Referring Unavailable JUDYMAEGAN Gold Attending Unavailable MAEGAN KIM Admitting Unavailable KRISTENMUKUL SANON Attending Unavailable KRISTENMUKUL SANON Primary Care Unavailable KRISTENMUKUL SANON Admitting Unavailable ORTEGA MACIEL MD Admitting Unavailable XENA, JUAN CHI Referring Unavailable XENA, JUAN CHI Consulting Unavailable ORTEGA MACIEL MD Attending Unavailable ORTEGA MACIEL MD Primary Care Unavailable PROVIDER, UNKNOWN Consulting Unavailable PROVIDER, UNKNOWN Consulting Unavailable PROBLEMS No Problem Records Found PROCEDURES No Procedure Records Found RESULTS BMP WITH EGFR DAILY Collected: 05/17/2025 5:[address] atus: F Source: [facility] TYPE CODE TESTS RESULT OUT OF RANGE REFERENCE UNITS LAB BMP with eGFR DAILY(LOINC) BMP with eGFR DAILY Result Comment: BASIC METABO LIC PANEL LAB SODIUM(LOINC) SODIUM 139 136 - 145 mmol/l LAB POTASSIUM(LOINC ) POTASSIUM 3.8 3.5 - 5.1 mmol/L LAB CHLORIDE(LOINC) CHLORIDE 104 98 - 107 mmol/L LAB CO2(LOINC) CO2 25.7 21.0 - 32.0 mmol/L LAB GLUCOSE(LOINC) GLUCOSE 181 High 74 - 106 mg/dl LAB BUN(LOINC) BUN 14 7 - 18 mg/dl LAB CREATININE(LOIN C) CREATININE 0.91 0.55 - 1.02 mg/dl LAB CALCIUM(LOINC) CALCIUM 8.4 Low 8.5 - 10.1 mg/dl LAB ANION GAP(LOINC) ANION GAP 13 10 - 20 mmol/L LAB AGE(LOINC) AGE 70 years LAB eGFR(LOINC) eGFR >60 60 - 999 ML/MINUTE LAB eGFR(AA)(LOINC) eGFR(AA) >60 60 - 999 ML/MIN [place] Result Comment: ACCORDING TO THE NATIONAL KIDNEY DISEASE EDUCATION PROGRAM(NKDE), A NORMAL eGFR IS A VALUE GREATER THAN OR EQUAL TO 60 ML/MIN/1.73 SQ METERS. CHRONIC KIDNEY DISEASE: <60mL/MIN/1.73 SQ METERS KIDNEY FAILURE: <15mL/MIN/1.73 SQ METERS THIS TEST SHOULD ONLY BE USED FOR PATIENTS 18 YEARS OF AGE AND OLDER. Performed By: #### [id number] ## ## [facility],[address] [place] [address] CBC DAILY Collected: 5 5:44 AM Status: F Source: [facility] TYPE CODE TESTS RESULT OUT OF RANGE REFERENCE UNITS LAB WBC(LOINC) WBC 7.5 4.5 - 10.8 x 10EE3/UL LAB RBC(LOINC) RBC 3.57 Low 4.10 - 5.30 x 10EE6/UL LAB HEMOGLOBIN(JANNET NC) HEMOGLOBIN 10.9 Low 12.0 - 16.0 g/dl LAB HEMATOCRIT(JANNET NC) HEMATOCRIT 32.3 Low 34.0 - 46.0 % LAB MCV(LOINC) MCV 91 80 - 99 fl LAB MCH(LOINC) MCH 30 27 - 33 pg LAB MCHC(LOINC) MCHC 34 32 - 36 X10 3 LAB RDW/CV(LOINC) RDW/CV 14.8 12.0 - 15.6 % LAB PLATELET(LOINC ) PLATELET 141 Low 150 - 450 x10EE3/UL LAB MPV(LOINC) MPV 8.8 6.6 - 10.5 fl Result Comment: AUTOMATED DI FFERENTIAL LAB NEUT %(LOINC) NEUT % 75.8 46.0 - 76.0 % LAB LYMPH %(LOINC) LYMPH % 13.7 Low 20.0 - 45.0 % LAB MONOS %(LOINC) MONOS % 7.0 0.0 - 10.0 % LAB EO %(LOINC) EO % 3.4 0.0 - 7.0 % LAB BASO %(LOINC) BASO % 0.1 0.0 - 2.0 % LAB Lymph #(LOINC) Lymph # 1.03 0.80 - 2.80 x10EE 3/UL LAB Neut #(LOINC) Neut # 5.68 1.50 - 7.10 x10EE3 /UL LAB Callaway #(LOINC) Callaway # 0.53 0.20 - 1.00 x10EE3 /UL LAB EO #(LOINC) EO # 0.25 0.00 - 0.50 x10EE3/U L LAB Baso #(LOINC) Baso # 0.01 0.00 - 0.10 x10EE3 /UL LAB MANUAL DIFF([facility]) MANUAL DIFF N/A LAB MORPHOLOGY([facility] VA) MORPHOLOGY N/A Performed By: #### [id number] ## ## [facility],[address] [place] [address] CBC DAILY Collected: 5 5:59 AM Status: F Source: [facility] TYPE CODE TESTS RESULT OUT OF RANGE REFERENCE UNITS LAB WBC(LOINC) WBC 8.8 4.5 - 10.8 x 10EE3/UL LAB RBC(LOINC) RBC 3.57 Low 4.10 - 5.30 x 10EE6/UL LAB HEMOGLOBIN(JANNET NC) HEMOGLOBIN 11.0 Low 12.0 - 16.0 g/dl LAB HEMATOCRIT(JANNET NC) HEMATOCRIT 32.5 Low 34.0 - 46.0 % LAB MCV(LOINC) MCV 91 80 - 99 fl LAB MCH(LOINC) MCH 31 27 - 33 pg LAB MCHC(LOINC) MCHC 34 32 - 36 X10 3 LAB RDW/CV(LOINC) RDW/CV 15.5 12.0 - 15.6 % LAB PLATELET(LOINC ) PLATELET 133 Low 150 - 450 x10EE3/UL LAB MPV(LOINC) MPV 8.9 6.6 - 10.5 fl Result Comment: AUTOMATED DI FFERENTIAL LAB NEUT %(LOINC) NEUT % 82.7 High 46.0 - 76.0 % LAB LYMPH %(LOINC) LYMPH % 10.6 Low 20.0 - 45.0 % LAB MONOS %(LOINC) MONOS % 5.3 0.0 - 10.0 % LAB EO %(LOINC) EO % 1.4 0.0 - 7.0 % LAB BASO %(LOINC) BASO % 0.1 0.0 - 2.0 % LAB Lymph #(LOINC) Lymph # 0.94 0.80 - 2.80 x10EE 3/UL LAB Neut #(LOINC) Neut # 7.27 High 1.50 - 7.10 x10EE3 /UL LAB Callaway #(LOINC) Callaway # 0.46 0.20 - 1.00 x10EE3 /UL LAB EO #(LOINC) EO # 0.12 0.00 - 0.50 x10EE3/U L LAB Baso #(LOINC) Baso # 0.01 0.00 - 0.10 x10EE3 /UL LAB MANUAL DIFF(LOINC) MANUAL DIFF N/A LAB MORPHOLOGY([facility]) MORPHOLOGY N/A Performed By: #### [id number] ## ## [facility],[address] [place] [address] BMP WITH EGFR DAILY Collected: 05/16/2025 5:[address] atus: F Source: [facility] TYPE CODE TESTS RESULT OUT OF RANGE REFERENCE UNITS LAB BMP with eGFR DAILY(LOINC) BMP with eGFR DAILY Result Comment: BASIC METABO LIC PANEL LAB SODIUM(LOINC) SODIUM 140 136 - 145 mmol/l LAB POTASSIUM(LOINC ) POTASSIUM 3.4 Low 3.5 - 5.1 mmol/L LAB CHLORIDE(LOINC) CHLORIDE 105 98 - 107 mmol/L LAB CO2(LOINC) CO2 27.9 21.0 - 32.0 mmol/L LAB GLUCOSE(LOINC) GLUCOSE 187 High 74 - 106 mg/dl LAB BUN(LOINC) BUN 14 7 - 18 mg/dl LAB CREATININE(LOIN C) CREATININE 0.83 0.55 - 1.02 mg/dl LAB CALCIUM(LOINC) CALCIUM 8.2 Low 8.5 - 10.1 mg/dl LAB ANION GAP(LOINC) ANION GAP 11 10 - 20 mmol/L LAB AGE(LOINC) AGE 70 years LAB eGFR(LOINC) eGFR >60 60 - 999 ML/MINUTE LAB eGFR(AA)(LOINC) eGFR(AA) >60 60 - 999 ML/MIN [place] Result Comment: ACCORDING TO THE NATIONAL KIDNEY DISEASE EDUCATION PROGRAM(NKDE), A NORMAL eGFR IS A VALUE GREATER THAN OR EQUAL TO 60 ML/MIN/1.73 SQ METERS. CHRONIC KIDNEY DISEASE: <60mL/MIN/1.73 SQ METERS KIDNEY FAILURE: <15mL/MIN/1.73 SQ METERS THIS TEST SHOULD ONLY BE USED FOR PATIENTS 18 YEARS OF AGE AND OLDER. Performed By: #### [id number] ## ## [place] [address] MAGNESIUM Collected: 6:05 AM Status: F Source: [facility] TYPE CODE TESTS RESULT OUT OF RANGE REFERENCE UNITS LAB MAGNESIUM(LOINC) MAGNESIUM 2.1 1.8 - 2.4 mg/ dl Performed By: #### [id number] ## ## [place] [address] BMP WITH EGFR DAILY Collected: 05/15/2025 6:[address] atus: F Source: [facility] TYPE CODE TESTS RESULT OUT OF RANGE REFERENCE UNITS LAB BMP with eGFR DAILY(LOINC) BMP with eGFR DAILY Result Comment: BASIC METABO LIC PANEL LAB SODIUM(LOINC) SODIUM 143 136 - 145 mmol/l LAB POTASSIUM(LOINC ) POTASSIUM 3.7 3.5 - 5.1 mmol/L LAB CHLORIDE(LOINC) CHLORIDE 108 High 98 - 107 mmol/L LAB CO2(LOINC) CO2 26.2 21.0 - 32.0 mmol/L LAB GLUCOSE(LOINC) GLUCOSE 156 High 74 - 106 mg/dl LAB BUN(LOINC) BUN 16 7 - 18 mg/dl LAB CREATININE(LOIN C) CREATININE 0.94 0.55 - 1.02 mg/dl LAB CALCIUM(LOINC) CALCIUM 8.0 Low 8.5 - 10.1 mg/dl LAB ANION GAP(LOINC) ANION GAP 13 10 - 20 mmol/L LAB AGE(LOINC) AGE 70 years LAB eGFR(LOINC) eGFR 59 Low 60 - 999 ML/MINUTE LAB eGFR(AA)(LOINC) eGFR(AA) >60 60 - 999 ML/MIN [place] Result Comment: ACCORDING TO THE NATIONAL KIDNEY DISEASE EDUCATION PROGRAM(NKDE), A NORMAL eGFR IS A VALUE GREATER THAN OR EQUAL TO 60 ML/MIN/1.73 SQ METERS. CHRONIC KIDNEY DISEASE: <60mL/MIN/1.73 SQ METERS KIDNEY FAILURE: <15mL/MIN/1.73 SQ METERS THIS TEST SHOULD ONLY BE USED FOR PATIENTS 18 YEARS OF AGE AND OLDER. Performed By: #### [id number] ## ## [facility],[address] [place] [id number] CBC DAILY Collected: 6:05 AM Status: F Source: [facility] TYPE CODE TESTS RESULT OUT OF RANGE REFERENCE UNITS LAB WBC(LOINC) WBC 10.4 4.5 - 10.8 x 10EE3/UL LAB RBC(LOINC) RBC 4.19 4.10 - 5.30 x 10EE6/UL LAB HEMOGLOBIN(JANNET NC) HEMOGLOBIN 12.6 12.0 - 16.0 g/dl Result Comment: TEST REPEATE D LAB HEMATOCRIT(JANNET NC) HEMATOCRIT 37.2 34.0 - 46.0 % LAB MCV(LOINC) MCV 89 80 - 99 fl LAB MCH(LOINC) MCH 30 27 - 33 pg LAB MCHC(LOINC) MCHC 34 32 - 36 X10 3 LAB RDW/CV(LOINC) RDW/CV 14.6 12.0 - 15.6 % LAB PLATELET(LOINC ) PLATELET 105 Low 150 - 450 x10EE3/UL LAB MPV(LOINC) MPV 8.6 6.6 - 10.5 fl Result Comment: AUTOMATED DI FFERENTIAL LAB NEUT %(LOINC) NEUT % 79.3 High 46.0 - 76.0 % LAB LYMPH %(LOINC) LYMPH % 13.8 Low 20.0 - 45.0 % LAB MONOS %(LOINC) MONOS % 6.1 0.0 - 10.0 % LAB EO %(LOINC) EO % 0.7 0.0 - 7.0 % LAB BASO %(LOINC) BASO % 0.1 0.0 - 2.0 % LAB Lymph #(LOINC) Lymph # 1.43 0.80 - 2.80 x10EE 3/UL LAB Neut #(LOINC) Neut # 8.25 High 1.50 - 7.10 x10EE3 /UL LAB Callaway #(LOINC) Callaway # 0.64 0.20 - 1.00 x10EE3 /UL LAB EO #(LOINC) EO # 0.07 0.00 - 0.50 x10EE3/U L LAB Baso #(LOINC) Baso # 0.01 0.00 - 0.10 x10EE3 /UL LAB MANUAL DIFF(LOINC) MANUAL DIFF N/A LAB MORPHOLOGY(JANNET NC) MORPHOLOGY N/A Performed By: #### [id number] ## ## [address] [address] NT-PROBNP Collected: 5:53 PM Status: F Source: [facility] TYPE CODE TESTS RESULT OUT OF RANGE REFERENCE UNITS LAB NT PRO-BNP(LOINC) NT PRO-BNP 5002 High 0 - 125 pg/ mL Performed By: #### [id number] ## ## [address] [address] MAGNESIUM Collected: 5:53 PM Status: F Source: [facility] TYPE CODE TESTS RESULT OUT OF RANGE REFERENCE UNITS LAB MAGNESIUM(LOINC) MAGNESIUM 1.3 Low 1.8 - 2.4 mg/ dl Performed By: #### [id number] ## ## [address] [address] TSH Collected: 5:53 PM Status: F Source: [facility] TYPE CODE TESTS RESULT OUT OF RANGE REFERENCE UNITS LAB TSH(LOINC) TSH 0.67 0.35 - 3.74 uIU/ml Performed By: #### [id number] ## ## [address] [address] LACTATE Collected: 5:53 PM Status: F Source: [facility] TYPE CODE TESTS RESULT OUT OF RANGE REFERENCE UNITS LAB LACTATE(LOINC) LACTATE 2.0 0.4 - 2.0 mmol/L Performed By: #### [id number] ## ## [address] [address] ED SUPER BILL Observed: 05/14/2025 3:43 PM Status: F Source: [facility] TAMIA Gibson D OB: 1955, , [facility] [address] [place] [address] [phone] 05/14/2025 Patient: TAMIA PANDA Sex: Female : 1955 Age: 70y Item Facility Professional Category Description Code Code Quantity Fee Total Drugs Normal Saline 181061 2 $0.00 $0.00 1000cc (648188) Nurse/E/M EMERGENCY 418373 1 $0.00 $0.00 DEPARTMENT VISIT HIGH/URGENT SEVERITY (62283-85) Nurse/IV/IM/Infusions Drip/IVPB initial 068098 2 $0.00 $0.00 (23042) Nurse/IV/IM/Infusions Hydration 772475 2 $0.00 $0.00 additional hour (60548) Nurse/Procedures Respiratory 938601 1 $0.00 $0.00 therapy - inhalation (68646) Nurse/Supplies Oxygen in the 353435 1 $0.00 $0.00 ED (552636) 1 of 2 [facility] - TAMIA PANDA, : 1955, , Item Facility Professional Category Description Code Code Quantity Fee Total Physician/Procedures Cobb catheter 197787 1 $0.00 $0.00 (40231) Grand Total $0.00 Providers Chente Sierra D.O. Chief Complaint DYSPNEA and HISTORY OF CHRONIC OBSTRUCTIVE PULMONARY DISEASE. Principal Diagnosis Sepsis. Pneumonia. Urinary tract infection. ICD-10 Codes J18.9: Pneumonia, unspecified organism A41.9: Sepsis, unspecified organism N39.0: Urinary tract infection, site not specified 2 of 2 ED VISIT SUMMARY Observed: 05/14/2025 3:43 PM Status: F Source: [facility] Visit Overview - FELISHA PANDA, : 1955, , Visit [facility] [address] [place] [address] [phone] 05/14/2025 Patient: TAMIA PANDA Sex: Female : 1955 Age: 70y 05/15/2025 07:23 AM EDT ED Arrival:12:09 05/14/2025 EDT Status: Recent Travel:no Language:eng Adv Directive:No Isolation Status: Ethnicity:N Fall Risk: Infectious Disease Exposure:no Measurements:5'1 / 154.9 Self-Harm Status:risk Sepsis Screen:positive cm 162.0 lb / 73.5 kg Chief Complaint:(pain everywhere) ALLERGIES Unable to state. HOME MEDICATIONS amlodipine 5 mg tablet atorvastatin 40 mg tablet buspirone 10 mg tablet duloxetine 60 mg capsule,delayed release Eliquis 5 mg tablet levothyroxine 88 mcg tablet metoprolol tartrate 50 mg tablet 1 of 4 Visit Overview - TAMIA PANDA, : 1955, , omeprazole 40 mg capsule,delayed release pt unsure of frequency. unable to find in erx Trelegy Ellipta 100 mcg-62.5 mcg-25 mcg powder for inhalation PAST MEDICAL HISTORY / PROBLEMS Atrial Fibrillation Congestive Heart Failure Coronary Artery Disease Depression Gastroesophageal Reflux Disease Hyperlipidemia Hypertension Hypothyroidism PAST SURGICAL HISTORY Hysterectomy Placement of stent in coronary artery SOCIAL HISTORY Smoking status: No Alcohol use: No Drug use: No ED COURSE MEDICATIONS GIVEN IN EMERGENCY DEPARTMENT CefTRIAXone (Rocephin) IVPB 2gm/50ml NS 2 g diluted in sodium chloride IVPB 0.9 12:57 05/14/25 % Minibag+ 50 mL 100 mL/hr 12:59 05/14/25 IV NS 0.9 % 1000 mL 999 mL/hr 13:03 05/14/25 Albuterol-Ipratropium (DuoNeb) 3mg/0.5mg Neb Tx 3 mL 13:03 05/14/25 Albuterol-Ipratropium (DuoNeb) 3mg/0.5mg Neb Tx 3 mL Azithromycin (Zithromax) IVPB 500 mg diluted in sodium chloride IVPB 0.9 % 250 mL 13:11 05/14/25 250 mL/hr 15:37 05/14/25 IV NS 0.9 % 1000 mL 150 mL/hr IV SITE INFORMATION 2 of 4 Visit Overview - TAMIA PANDA, : 1955, , 12:21 05/14/25 Site #1 left AC, 18g. Saline lock. 12:59 05/14/25 Site #2 right AC, 20g. Saline lock. INTAKE OUTPUT REASSESMENT (most recent) 13:28 05/14/25. To room via stretcher. GENERAL / NEURO / PSYCH: Alert. Oriented X 4. Appears in distress. HEENT: Pupils equal, round and reactive to light. No facial asymmetry noted. Mucous membranes are not pink. RESPIRATORY: Mild respiratory distress. The patient can speak in full sentences. Cough. Decreased breath sounds diffusely over both lungs. Bilateral rhonchi present diffusely. CVS: Cardiac rhythm: atrial fibrillation. Capillary refill less than 2 seconds. Pulses within normal limits. GI / : Abdomen soft and nontender and normal bowel sounds. SKIN: Skin intact. Skin is pale. Skin is warm and dry. Poor skin turgor. VITAL SIGNS First Vitals Last Vitals Temp 12:20 05/14/25 98.4 F Temp 16:32 05/14/25 BP 12:20 05/14/25 116/39 BP 16:32 05/14/25 HR 12:20 05/14/25 112 HR 16:32 05/14/25 113 RR 12:20 05/14/25 36 RR 16:32 05/14/25 O2 Sat 12:20 05/14/25 78% RA O2 Sat 16:32 05/14/25 92% Pain 12:20 05/14/25 8 Pain 16:32 05/14/25 ETCO2 12:20 05/14/25 ETCO2 16:32 05/14/25 GCS 12:20 05/14/25 GCS 16:32 05/14/25 RTS 12:20 05/14/25 RTS 16:32 05/14/25 PROCEDURES NURSING INTERVENTIONS Urinary catheter Respiratory therapy LABS / STUDIES LABS / STUDIES ORDERED Blood Culture [Nancy] # 1 3 of 4 Visit Overview - TAMIA PANDA, : 1955, , Blood Culture [Nancy] # 2 CBC w Diff Chest 1V CMP EKG - ED Flu Swab (Influenzae AAg) Lactate, Serum Rapid COVID (SARS) ANTIGEN TEST Troponin-I Urinalysis CLINICAL IMPRESSION PNEUMONIA SEPSIS URINARY TRACT INFECTION 4 of 4 ED VITALS FLOW SHEET Observed: 3:43 PM Status: F Source: [facility] Vitals - TAMIA PANDA, : 1955, , Vital Sign Flow Sheet [address] [address] [phone] 05/14/2025 Patient: TAMIA PANDA Sex: Female : 1955 Age: 70y Measurements Wt: 73.5 kg, Ht/Laith: 61.0 in, BMI: 30.61 Measured Time BP MAP HR RR O2Sat ETCO2 Temp Pain GCS RTS 16:32 05/14/2025 113 92% 16:27 05/14/2025 135/76 87 107 16:27 05/14/2025 116 92% 16:22 05/14/2025 113 91% 16:17 05/14/2025 104 92% 16:12 05/14/2025 142/72 95 103 16:12 05/14/2025 115 92% 16:07 05/14/2025 105 92% 16:02 05/14/2025 103 92% 15:58 05/14/2025 126/78 94 104 15:57 05/14/2025 107 90% 15:52 05/14/2025 109 91% 15:47 05/14/2025 118 91% 15:42 05/14/2025 132/77 86 101 15:42 05/14/2025 106 91% 1 of 4 Vitals - TAMIA PANDA, : 1955, , Measured Time BP MAP HR RR O2Sat ETCO2 Temp Pain GCS RTS 15:37 05/14/2025 113 89% 15:32 05/14/2025 98 91% 15:29 05/14/2025 116/75 94 102 15:27 05/14/2025 108 90% 15:22 05/14/2025 109 90% 15:17 05/14/2025 97 91% 15:12 05/14/2025 110 90% 15:12 05/14/2025 133/88 103 107 15:07 05/14/2025 110 89% 15:02 05/14/2025 100 89% 14:57 05/14/2025 132/73 92 101 14:57 05/14/2025 117 89% 14:52 05/14/2025 99 90% 14:47 05/14/2025 111 90% 14:42 05/14/2025 117/68 76 103 14:42 05/14/2025 106 91% 14:37 05/14/2025 91 91% 14:32 05/14/2025 99 91% 14:27 05/14/2025 121/65 83 98 14:27 05/14/2025 96 87% 14:22 05/14/2025 98 90% 14:17 05/14/2025 101 90% 14:12 05/14/2025 103/61 75 90 14:12 05/14/2025 106 91% 14:07 05/14/2025 107 90% 2 of 4 Vitals - MAYURI PANDALIS, : 1955, , Measured Time BP MAP HR RR O2Sat ETCO2 Temp Pain GCS RTS 14:02 05/14/2025 100 91% 13:57 05/14/2025 110/58 80 89 13:57 05/14/2025 97 92% 13:52 05/14/2025 121 95% 13:47 05/14/2025 116 95% 13:42 05/14/2025 99/49 73 94 13:42 05/14/2025 108 96% 13:37 05/14/2025 103 96% 13:34 05/14/2025 96/51 64 102 13:32 05/14/2025 119 92% 13:28 05/14/2025 89/58 68 80 13:27 05/14/2025 101 93% 13:22 05/14/2025 110 89% 13:17 05/14/2025 115 93% 13:13 05/14/2025 117/53 74 94 13:12 05/14/2025 118 95% 13:10 05/14/2025 110 29 94% NC 4L 13:08 05/14/2025 108 32 94% NC 4L 13:08 05/14/2025 107 28 97% NC 4L 13:07 05/14/2025 100 95% 13:02 05/14/2025 119 92% 13:02 05/14/2025 106 32 95% NC 4L 3 of 4 Vitals - TAMIA PANDA, : 1955, , Measured Time BP MAP HR RR O2Sat ETCO2 Temp Pain GCS RTS 12:57 05/14/2025 119/77 86 99 12:57 05/14/2025 121 92% 12:52 05/14/2025 112 92% 12:47 05/14/2025 122 91% 12:42 05/14/2025 123/81 94 100 12:42 05/14/2025 109 95% 12:37 05/14/2025 115 94% 12:32 05/14/2025 120 95% 12:20 05/14/2025 116/39 65 112 36 78% RA 98.4 F 8 4 of 4 ED NURSES CLINICAL NOTE Observed: 2024 3:43 PM Status: F Source: [facility] Nurse Narrative - MAYURI PANDA, : 1955, , Nurse Clinical Narrative [address] [address] [phone] 05/14/2025 12:09:00 Patient: TAMIA PANDA Sex: Female : 1955 Age: 70y Disposition: Admit to [facility] Disposition Decision Time: 15:38 05/14/2025 Departure Time: 16:40 05/14/2025 TRIAGE Arrived by EMS. Historian: (patient). Triage time: 12:13 05/14/2025. Acuity: LEVEL 2. Chief Complaint: (pain everywhere). This started today. SEPSIS SCREEN: POSITIVE. SIRS criteria positive. Possible sources of infection. Provider notified, sepsis guidelines implemented and continue to assess for severe sepsis. -- 12:20 05/14/25 JOHN Davis R.N. 12:05/14/25. BP: 116/39 MAP: 65. HR: 112. RR: 36. O2 saturation: 78% on room air. Temperature: 98.4 F. Pain level now 8/10. -- 12:05/14/25 EDT Clifford Davis R.N. Measurements: 12:05/14/25 Wt: 73.5 kg, Ht/Alith: 61.0 in, BMI: 30.61 -- 12:05/14/25 ALEXANDREAT Clifford Davis R.N. Medications: amlodipine 5 mg tablet -- 12:36 05/14/25 EDT Romulo Ryan R.N. atorvastatin 40 mg tablet -- 12:36 05/14/25 EDT Romulo Ryan R.N. omeprazole 40 mg capsule,delayed release -- 12:36 05/14/25 EDT Romulo Ryan R.N. levothyroxine 88 mcg tablet -- 12:36 05/14/25 EDT Romulo Ryan R.N. 1 of 5 Nurse Narrative - TAMIA PANDA, : 1955, , metoprolol tartrate 50 mg tablet -- 12:36 05/14/25 EDT Romulo Ryan R.N. buspirone 10 mg tablet -- 12:36 05/14/25 EDT Romulo Ryan R.N. duloxetine 60 mg capsule,delayed release -- 12:36 05/14/25 EDT Romulo Ryan R.N. Trelegy Ellipta 100 mcg-62.5 mcg-25 mcg powder for inhalation -- 12:36 05/14/25 ALEXANDREAT Romulo Ryan R.N. Eliquis 5 mg tablet -- 12:36 05/14/25 EDT Romulo Ryan R.N. pt unsure of frequency. unable to find in erx -- 12:37 05/14/25 ALEXANDREAT Romulo Ryan R.N. Allergies: Unable to state. -- 12:16 05/14/25 EDT Clifford Davis R.N. Problems: Hypertension -- 12:16 05/14/25 ALEXANDREAT Clifford Davis R.N. Hyperlipidemia -- 12:16 05/14/25 ALEXANDREAT Clifford Davis R.N. Coronary Artery Disease -- 12:16 05/14/25 ALEXANDREAT Clifford Davis R.N. Atrial Fibrillation -- 12:16 05/14/25 ALEXANDREAT Clifford Davis R.N. Congestive Heart Failure -- 12:16 05/14/25 ALEXANDREAT Clifford Davis R.N. Hypothyroidism -- 12:16 05/14/25 ALEXANDREAT Clifford Davis R.N. Gastroesophageal Reflux Disease -- 12:16 05/14/25 ALEXANDREAT Clifford Davis R.N. Depression -- 12:05/14/25 ALEXANDREAT Clifford Davis R.N. Surgeries: Placement of stent in coronary artery -- 12:05/14/25 JOHN Davis R.N. Hysterectomy -- 12:05/14/25 ALEXANDREAT Clifford Davis R.N. History 12:05/14/25. SOCIAL HX: Never smoker. No alcohol use or drug use. The patient has not traveled outside the [place] Infectious disease exposure: No infectious disease exposure. ABUSE ASSESSMENT: The patient answered yes to the question(s) Do you feel safe in your home? and no to the question(s) Are you afraid to go home?. SELF HARM ASSESSMENT: Self harm assessment was performed. The patient answered no to the question(s) Have you recently felt down, depressed, or hopeless? and Do you have thoughts of harming or killing yourself?. 2 of 5 Nurse Narrative - TAMIA PANDA, : 1955, , FALL RISK ASSESSMENT: Fall risk assessment completed. Fall interventions initiated. Side rails up x2. Bed in low position. Brakes on. Patient identified as a fall risk by ID band. -- 12:05/14/25 ALEXANDREAT Clifford Davis R.N. Interventions 12:13 05/14/25. To room. Advanced care plan discussed with family. Patient does not have advanced directive. -- 12:05/14/25 EDT Clifford Davis R.N. PHYSICAL ASSESSMENT 13:28 05/14/25. To room via stretcher. GENERAL / NEURO / PSYCH: Alert. Oriented X 4. Appears in distress. HEENT: Pupils equal, round and reactive to light. No facial asymmetry noted. Mucous membranes are not pink. RESPIRATORY: Mild respiratory distress. The patient can speak in full sentences. Cough. Decreased breath sounds diffusely over both lungs. Bilateral rhonchi present diffusely. CVS: Cardiac rhythm: atrial fibrillation. Capillary refill less than 2 seconds. Pulses within normal limits. GI / : Abdomen soft and nontender and normal bowel sounds. SKIN: Skin intact. Skin is pale. Skin is warm and dry. Poor skin turgor. -- 13:28 05/14/25 ALEXANDREAT Clifford Davis R.N. NURSING PROGRESS NOTES 12:21 05/14/25. Site #1 started in the left antecubital space with an 18g needle with aseptic technique and good blood return; 1 attempt. Blood drawn: rainbow set and urban tube(s) and cultures x 1. Saline lock flushed with 10 mL saline. -- 12:23 05/14/25 EDT Clifford Davis R.N. 12:51 05/14/25. URINARY CATHETER: 16 fr cobb catheter placed in ED by me and assisted by one tech. Reason for catheter: critical need to monitor intake and output. During procedure hand hygiene observed and sterile equipment and aseptic technique used. Return of 150 mL yellow-colored cloudy urine; attached to bedside drainage bag positioned below the bladder and secured with stabilization device. The patient tolerated procedure well. -- 13:07 05/14/25 EDT Romana Grijalva R.N. 12:53 05/14/25. Portable chest x-ray completed. -- 13:33 05/14/25 ALEXANDREAT Clifford Davis R.N. 12:57 05/14/25. CefTRIAXone (Rocephin) IVPB 2gm/50ml NS 2 g started at 100 mL/hr diluted in sodium chloride IVPB 0.9 % Minibag+ 50 mL via Site# 1. Allergies verified and confirmed 5 rights. IV patency established. IV site checked: no pain, redness, or swelling. IV flushed thoroughly pre-medication administration. Information reviewed with patient including reason for taking this medication. -- 12:58 05/14/25 EDT Clifford Davis R.N. 12:59 05/14/25. Site #2 started in the right antecubital space with a 20g needle with aseptic technique and good blood return; 1 attempt. Blood drawn: cultures x 2. Labeled in the presence of the patient and sent to the lab. Saline lock flushed. -- 13:14 05/14/25 EDT Clifford Davis R.N. 3 of 5 Nurse Narrative - TAMIA PANDA, : 1955, , 12:59 05/14/25. IV NS 0.9 % 1000 mL started in bag#1 1000 mL at 999 mL/hr via Site# 1. Allergies verified and confirmed 5 rights. IV patency established. IV site checked: no pain, redness, or swelling. IV flushed thoroughly pre-medication administration. Information reviewed with patient including reason for taking this medication. -- 12:59 05/14/25 EDT Clifford Davis R.N. 13:03 05/14/25. Albuterol-Ipratropium (DuoNeb) 3mg/0.5mg Neb Tx 3 mL given. Given by the respiratory therapist. Allergies verified. Information reviewed with patient. -- 13:03 05/14/25 EDT Светлана Murray.RChantale. 13:03 05/14/25. Albuterol-Ipratropium (DuoNeb) 3mg/0.5mg Neb Tx 3 mL given. -- 13:05 05/14/25 EDT Isidoro MurrayRChantale. 13:11 05/14/25. Azithromycin (Zithromax) IVPB 500 mg started at 250 mL/hr diluted in sodium chloride IVPB 0.9 % 250 mL via Site# 2. Allergies verified and confirmed 5 rights. Via IV pump. IV patency established. IV site checked: no pain, redness, or swelling. IV flushed thoroughly pre-medication administration. Information reviewed with patient including reason for taking this medication. -- 13:14 05/14/25 ALEXANDREAT Clifford Davis R.N. 13:15 05/14/25. CefTRIAXone (Rocephin) IVPB 2gm/50ml NS: Medication Discontinued. IV infused. Total amount infused: 50 mL. IV patency established. IV site checked: no pain, redness, or swelling. IV flushed thoroughly post-medication administration. -- 13:15 05/14/25 EDT Clifford Davis R.N. 13:33 05/14/25. Two patient identifiers checked. Call light placed in reach. Side rails up x 2. Bed placed in lowest position. Brakes of bed on. -- 13:33 05/14/25 EDT Clifford Davis R.N. 15:02 05/14/25. Critical value received by this RN (15:02 05/14/2025). Lactate level: 4.0. Critical value. Verified lab result and patient ID. ED physician notifed of critical value. Orders were received. -- 15:02 05/14/25 EDT Romulo Ryan R.N. Respiratory Therapy Flowsheet 13:02 05/14/25. Respiratory treatment performed. Pre assessment. Mild respiratory distress. Decreased breath sounds. -- 13:07 05/14/25 EDT Shan Sierra R.R.T. 13:02 05/14/25. HR: 106. RR: 32. O2 saturation: 95% on nasal cannula at 4 liters/minute. -- 13:07 05/14/25 EDT Isidoro MurrayRMagdaT. 13:08 05/14/25. Post assessment. Mild respiratory distress. Decreased breath sounds. -- 13:08 05/14/25 EDT Isidoro MurrayRMagdaT. 13:08 05/14/25. Respiratory treatment performed. Pre assessment. Mild respiratory distress. Decreased breath sounds. -- 13:08 05/14/25 EDT Светлана Murray.R.T. 13:08 05/14/25. HR: 107. RR: 28. O2 saturation: 97% on nasal cannula at 4 liters/minute. -- 13:08 05/14/25 EDT Светлана Murray.R.T. 13:08 05/14/25. HR: 108. RR: 32. O2 saturation: 94% on nasal cannula at 4 liters/minute. -- 13:08 05/14/25 EDT Shan Sierra R.R.T. 13:10 05/14/25. Post assessment. Mild respiratory distress. Decreased breath sounds. -- 13:10 05/14/25 JOHN Sierra R.R.T. 13:10 05/14/25. Checked patient name, birthdate and visit number. Chapin's test positive. ABG specimen obtained by respiratory therapist from the right radial artery. Post-procedure pressure applied by respiratory therapist for 5 4 of 5 Nurse Narrative - TAMIA PANDA, : 1955, , minutes. Post-procedure: no bleeding and specimen labeled in presence of the patient. -- 13:10 05/14/25 ALEXANDREAT Shan Sierra R.R.T. 13:10 05/14/25. HR: 110. RR: 29. O2 saturation: 94% on nasal cannula at 4 liters/minute. -- 13:05/14/25 JOHN Sierra R.R.T. 13:13 05/14/25. (abg results printed for dr. Sierra. No new orders given.). -- 13:13 05/14/25 JOHN Sierra R.R.T. DISPOSITION / DISCHARGE 14:00 05/14/25. IV NS 0.9 %: Medication Discontinued. bag #1 infused. Total amount infused: 1000 mL. -- 07:20 05/15/25 ALEXANDREAT Clifford Davis R.N. 14:11 05/14/25. Azithromycin (Zithromax) IVPB: Medication Discontinued. IV completed. Total amount infused: 100 mL. IV patency established. IV site checked: no pain, redness, or swelling. IV flushed thoroughly post-medication administration. -- 07:19 05/15/25 JOHN Davis R.N. 15:37 05/14/25. IV NS 0.9 % 1000 mL started in bag#1 1000 mL at 150 mL/hr via Site# 2. Allergies verified and confirmed 5 rights. Via IV pump. IV patency established. IV site checked: no pain, redness, or swelling. IV flushed thoroughly pre-medication administration. Information reviewed with patient including reason for taking this medication. -- 07:21 05/15/25 EDT Clifford Davis R.N. 16:23 05/14/25. Report was given to a nurse via a phone call. Report included information regarding patient's care, treatment and allergies, current and abnormal vital signs and critical, abnormal or pending labs. Report included treatment information regarding medications given in the ED; type and amount of IV fluids total volume infused. All questions were answered. Report was acknowledged and care was transferred (Kathie SANTOS). -- 16:33 05/14/25 EDT Romulo Ryan R.N. Departure time: 16:40 05/14/2025. -- 07:17 05/15/25 EDT Clifford Davis R.N. 16:40 05/14/25. IV NS 0.9 %: Medication Continued. upon admission at the rate of 150 mL/hr. 700 mL remaining in bag. -- 07:21 05/15/25 EDT Clifford Davis R.N. 16:40 05/14/25. Site #[address] upon admission. -- 07:18 05/15/25 EDT Clifford Davis R.N. 16:40 05/14/25. Site #[address] upon admission. -- 07:18 05/15/25 EDT Clifford Davis R.N. 18:40 05/14/25. Condition at departure: improved. -- 07:22 05/15/25 EDT Clifford Davis R.N. (Electronically signed by Clifford Davis R.N. 05/15/25 07:23:27 EDT) Generated by [facility] 5 of 5 ED PHYSICIAN CLINICAL REPORT Observed: 0 05/14/2025 3:43 PM Status: F Source: [facility] Narrative - TAMIA PANDA D OB: 1955, , Physician Clinical Narrative [address] [place] [address] [id number] 05/14/2025 12:09:00 Patient: TAMIA PANDA Sex: Female : 1955 Age: 70y Disposition: Admit to [facility] Disposition Decision Time: 15:38 05/14/2025 Departure Time: 18:21 05/14/2025 Measurements Wt: 73.5 kg, Ht/Laith: 61.0 in, BMI: 30.61 Initial Vital Sign Measured Time BP MAP HR RR O2Sat ETCO2 Temp Pain GCS RTS 12:20 05/14/2025 116/39 65 112 36 78% RA 98.4 F 8 Time Seen: 12:11 05/14/2025. Arrived- By ambulance. Historian- patient. Independent historian- EMS personnel and family. HISTORY OF PRESENT ILLNESS Chief Complaint: DYSPNEA and HISTORY OF CHRONIC OBSTRUCTIVE PULMONARY DISEASE. This started today. (Patient presents via EMS with concern for shortness of breath and pain all over. Sister states she went to wake her up and she is crying out in pain and short of breath. Patient does wear oxygen at home. History of COPD. Denies any fever, chills, nausea, vomiting, abdominal pain, urinary symptoms.). REVIEW OF SYSTEMS GI: No nausea, vomiting or abdominal pain. 1 of 13 Candy - TAMIA PANDA, : 1955, , PAST HISTORY Atrial Fibrillation Congestive Heart Failure Coronary Artery Disease Depression Gastroesophageal Reflux Disease Hyperlipidemia Hypertension Hypothyroidism Surgeries: Hysterectomy Placement of stent in coronary artery Medications: amlodipine 5 mg tablet atorvastatin 40 mg tablet buspirone 10 mg tablet duloxetine 60 mg capsule,delayed release Eliquis 5 mg tablet levothyroxine 88 mcg tablet metoprolol tartrate 50 mg tablet omeprazole 40 mg capsule,delayed release pt unsure of frequency. unable to find in erx Trelegy Ellipta 100 mcg-62.5 mcg-25 mcg powder for inhalation Allergies: Unable to state. SOCIAL HISTORY Former smoker. No alcohol use or drug use. ADDITIONAL NOTES The nursing notes have been reviewed. 2 of 13 TAMIA Gibson, : 1955, , PHYSICAL EXAM Vital Signs: Have been reviewed. Appearance: Alert. No acute distress. ENT: Dry mucous membranes present. Uvula midline. Neck: Normal inspection. Neck supple. CVS: Tachycardia. Abnormal rhythm. Respiratory: Respiratory distress. Decreased air movement. Wheezing present. Abdomen: Soft and nontender. Skin: Skin warm and dry. Normal skin color. Extremities: Bilateral mild pitting edema of the lower extremities. LABS, X-RAYS, AND EKG 12-LEAD EKG: EKG time: 12:22 05/14/2025. Atrial fibrillation (126). Non-specific ST segment / T wave abnormalities. The study has been interpreted contemporaneously by me. Interpretation time: 12:24 05/14/2025. Chest X-ray: Infiltrate in the left lung. Consistent with pneumonia. Laboratory Tests: CBC + DIFF Final JOAQUÍN: 05/14/2025 12:20:00 EDT MsgRcvd: 05/14/2025 12:45 EDT Lab Test Result Reference Status Received 05/14/2025 12:45 CBC + DIFF Final EDT CBC-COMPLETE BLOOD COUNT 05/14/2025 12:45 WBC 8.6 x 10/UL 4.5 - 10.8 Final EDT 05/14/2025 12:45 RBC 4.77 x 10/UL 4.10 - 5.30 Final EDT [address] [place] [address] TAMIA PANDA, : 1955, , 05/14/2025 12:45 HEMOGLOBIN 15.1 g/dl 12.0 - 16.0 Final EDT 05/14/2025 12:45 HEMATOCRIT 43.0 % 34.0 - 46.0 Final EDT 05/14/2025 12:45 MCV 90 fl 80 - 99 Final EDT 05/14/2025 12:45 MCH 32 pg 27 - 33 Final EDT 05/14/2025 12:45 MCHC 35 X10 3 32 - 36 Final EDT 05/14/2025 12:45 RDW/CV 14.9 % 12.0 - 15.6 Final EDT 149 x10/UL 05/14/2025 12:45 PLATELET 150 - 450 Final Below low normal EDT 05/14/2025 12:45 MPV 8.2 fl 6.6 - 10.5 Final EDT AUTOMATED DIFFERENTIAL 84.1 % 05/14/2025 12:45 NEUT % 46.0 - 76.0 Final Above high normal EDT 9.1 % 05/14/2025 12:45 LYMPH % 20.0 - 45.0 Final Below low normal EDT 05/14/2025 12:45 MONOS % 6.1 % 0.0 - 10.0 Final EDT 05/14/2025 12:45 EO % 0.5 % 0.0 - 7.0 Final EDT 05/14/2025 12:45 BASO % 0.2 % 0.0 - 2.0 Final EDT 4 of 13 TAMIA Gibson, : 1955, , 0.79 x10/UL 05/14/2025 12:45 Lymph # 0.80 - 2.80 Final Below low normal EDT 7.24 x10/UL 05/14/2025 12:45 Neut # 1.50 - 7.10 Final Above high normal EDT 05/14/2025 12:45 Callaway # 0.53 x10/UL 0.20 - 1.00 Final EDT 05/14/2025 12:45 EO # 0.04 x10/UL 0.00 - 0.50 Final EDT 05/14/2025 12:45 Baso # 0.01 x10/UL 0.00 - 0.10 Final EDT 05/14/2025 12:45 MANUAL DIFF N/A New Order EDT 05/14/2025 12:45 MORPHOLOGY N/A New Order EDT CMP with eGFR Final JOAQUÍN: 05/14/2025 12:20:00 EDT MsgRcvd: 05/14/2025 13:02 EDT Lab Test Result Reference Status Received 05/14/2025 13:02 CMP with eGFR Final EDT COMPREHENSIVE METABOLIC PANEL 05/14/2025 13:02 SODIUM 141 mmol/l 136 - 145 Final EDT 05/14/2025 13:02 POTASSIUM 3.7 mmol/L 3.5 - 5.1 Final EDT 05/14/2025 13:02 CHLORIDE 106 mmol/L 98 - 107 Final EDT 5 of 13 Candy Mechelle MTGeoff TAMIA, : 1955, , 05/14/2025 13:02 CO2 24.9 mmol/L 21.0 - 32.0 Final EDT 272 mg/dl 05/14/2025 13:02 GLUCOSE 74 - 106 Final Above high normal EDT 05/14/2025 13:02 BUN 17 mg/dl 7 - 18 Final EDT 1.27 mg/dl 05/14/2025 13:02 CREATININE 0.55 - 1.02 Final Above high normal EDT 05/14/2025 13:02 AST/SGOT 16 U/L 13 - 39 Final EDT 05/14/2025 13:02 ALK PHOS 85 U/L 46 - 116 Final EDT 05/14/2025 13:02 CALCIUM 8.6 mg/dl 8.5 - 10.1 Final EDT 05/14/2025 13:02 TOTAL PROTEIN 6.8 g/dl 6.4 - 8.2 Final EDT 2.9 g/dL 05/14/2025 13:02 ALBUMIN 3.4 - 5.0 Final Below low normal EDT 3.9 G/DL 05/14/2025 13:02 GLOBULIN 1.5 - 3.8 Final Above high normal EDT 0.7 05/14/2025 13:02 A/G RATIO 0.9 - 1.6 Final Below low normal EDT 1.6 mg/dl 05/14/2025 13:02 TOTAL BILI 0.2 - 1.0 Final Above high normal EDT 05/14/2025 13:02 B/C RATIO 13 ratio 0 - 30 Final EDT 9 U/L 05/14/2025 13:02 ALT/SGPT 16 - 63 Final Below low normal EDT 6 of 13 Candy TAMIA PANDA, : 1955, , 05/14/2025 13:02 ANION GAP 14 mmol/L 10 - 20 Final EDT 05/14/2025 13:02 AGE 70 years Final EDT 42 ML/MINUTE 05/14/2025 13:02 eGFR 60 - 999 Final Below low normal EDT 50 ML/MINUTE 05/14/2025 13:02 eGFR(AA) 60 - 999 Final Below low normal EDT ACCORDING TO THE NATIONAL KIDNEY DISEASE EDUCATION PROGRAM(NKDE), A NORMAL eGFR IS A VALUE GREATER THAN OR EQUAL TO 60 ML/MIN/1.73 SQ METERS. CHRONIC KIDNEY DISEASE: <60mL/MIN/1.73 SQ METERS KIDNEY FAILURE: <15mL/MIN/1.73 SQ METERS THIS TEST SHOULD ONLY BE USED FOR PATIENTS 18 YEARS OF AGE AND OLDER. CORONAVIRUS (SARS) ANTIGEN TEST Final JOAQUÍN: 05/14/2025 13:02:00 EDT MsgRcvd: 05/14/2025 13:39 EDT Lab Test Result Reference Status Received NORMAL: 05/14/2025 13:39 SARS ANTIGEN NEGATIVE Final NEGATIVE EDT INTERNAL 05/14/2025 13:39 PASS Final CONTROL EDT EXTERNAL QC 05/14/2025 13:39 YES Final DONE? EDT 05/14/2025 13:39 SEND TO IC? NO Final EDT SARS-CoV-2 THIS TEST IS BEING USED UNDER THE FDA EUA PROCEDURE. THIS ASSAY HAS BEEN VALIDATED AT THE [facility] FOR USE WITH NASAL AND NASOPHARYNGEAL SWAB SPECIMENS. INTERPRETIVE DATA TEST RESULTS SHOULD ALWAYS BE CONSIDERED IN THE CONTEXT OF CLINICAL 7 of Candy Min FARZADTAMIA, : 1955, , OBSERVATIONS AND EPIDEMIOLOGICAL DATA IN MAKING FINAL DIAGNOSIS AND PATIENT MANAGEMENT DECISIONS. PATIENT MANAGEMENT SHOULD FOLLOW CURRENT CDC GUIDELINES. THE LUIZA SARS ANTIGEN ISSA DOES NOT DIFFERENTIATE BETWEEN SARS-CoV SARS-CoV-2. A POSITIVE TEST RESULT INDICATES THE PRESENCE OF SARS-CoV-2 NUCLEOCAPSID PROTEIN ANTIGEN, AND THE PATIENT IS INFECTED WITH THE VIRUS AND PRESUMED TO BE CONTAGIOUS. A NEGATIVE TEST RESULT FOR THIS TEST MEANS THAT SARS-CoV-2 NUCLEOCAPSID PROTEIN ANTIGEN WAS NOT PRESENT IN THE SPECIMEN ABOVE THE LIMIT OF DETECTION. HOWEVER, A NEGATIVE RESULT DOES NOT RULE OUT COVID-19 AND SHOULD NOT BE USED THE SOLE BASIS FOR TREATMENT OR PATIENT MANAGEMENT DECISIONS. A NEGATIVE RESULT DOES NOT EXCLUDE THE POSSIBILITY OF COVID-19. NEGATIVE RESULTS, FROM PATIENTS WITH SYMPTOM ONSET BEYOND FIVE DAYS, SHOULD BE TREATED PRESUMPTIVE AND CONFIRMATION WITH A MOLECULAR ASSAY, IF NECESSARY, FOR PATIENT MANAGEMENT, MAY BE PERFORMED. WHEN DIAGNOSTIC TESTING IS NEGATIVE, THE POSSIBLILTY OF A FALSE NEGATIVE RESULT SHOULD BE CONSIDERED IN THE CONTEXT OF A PATIENT'S RECENT EXPOSURES AND THE PRESENCE OF CLINICAL SIGNS AND SYMPTOMS CONSISTENT WITH COVID-19. THE POSSIBILITY OF A FALSE NEGATIVE RESULT SHOULD ESPECIALLY BE CONSIDERED IF THE PATIENT'S RECENT EXPOSURES OR CLINICAL PRESENTATION INDICATE THAT COVID-19 IS LIKELY, AND DIAGNOSTIC TESTS FOR OTHER CAUSES OF ILLNESS (e.g., OTHER RESPIRATORY ILLNESS) ARE NEGATIVE. IF COVID-19 IS STILL SUSPECTED BASED ON EXPOSURE HISTORY TOGETHER WITH OTHER CLINICAL FINDINGS, RE-TESTING SHOULD BE CONSIDERED BY HEALTHCARE PROVIDERS IN CONSULTATION WITH PUBLIC HEALTH AUTHORITIES. INFLUENZA VIRUS RAPID A/B Final JOAQUÍN: 05/14/2025 13:02:00 EDT MsgRcvd: 05/14/2025 13:38 EDT Lab Test Result Reference Status Received 05/14/2025 13:38 INFLUENZA A NEGATIVE [NEGATIVE Final EDT 05/14/2025 13:38 INFLUENZA B NEGATIVE [NEGATIVE Final EDT 05/14/2025 13:38 INTERNAL NEG QC PASS Final EDT TAMIA Gibson, : 1955, , 05/14/2025 13:38 INTERNAL POS QC PASS Final EDT EXTERNAL QC 05/14/2025 13:38 YES Final DONE? EDT 05/14/2025 13:38 SEND TO IC? NO Final EDT A NEGATIVE TEST RESULT DOES NOT EXCLUDE INFECTION WITH INFLUENZA A OR B. THEREFORE, THE RESULTS OBTAINED FROM THIS FLU TEST SHOULD BE USED IN CONJUCTION WITH CLINICAL FINDINGS TO MAKE AN ACCURATE DIAGNOSIS. A POSITIVE RESULT DOES NOT RULE OUT CO-INFECTIONS WITH OTHER PATHOGENS OR IDENTIFY ANY SPECIFIC INFLUENZA A VIRUS SUBTYPE.CO-INFECTION WITH INFLUENZA A AND B IS RARE. IT IS RECOMMENDED THAT DUAL POSITIVE RESULTS BE CONFIRMED BY VIRAL CULTURE OR AN FDA-CLEARED INFLUENZA A AND B MOLECULAR ASSAY. INDIVIDUALS WHO HAVE RECEIVED NASALLY ADMINISTERED INFLUENZA A VACCINE MAY TEST POSITIVE IN COMMERCIALLY AVAILABLE INFLUENZA RAPID DIAGNOSTIC TESTS FOR UP TO THREE DAYS. RESULT 05/14/2025 13:38 NO Final CRITICAL? EDT LACTATE Final JOAQUÍN: 05/14/2025 12:20:00 EDT MsgRcvd: 05/14/2025 13:06 EDT Lab Test Result Reference Status Received 3.1 mmol/L 05/14/2025 13:06 LACTATE 0.4 - 2.0 Final Above high normal EDT LACTATE 3 HR NOTIFIED TO: JULES 05/14/25.1306.CWB. . . LACTATE 3 HR NOTIFIED BY: KERLINE 05/14/25.1306.CWB. . . LACTATE Final JOAQUÍN: 05/14/2025 14:15:00 EDT MsgRcvd: 05/14/2025 15:02 EDT 9 of 13 TAMIA Gibson, : 1955, , Lab Test Result Reference Status Received 4.0 mmol/L 05/14/2025 15:02 LACTATE 0.4 - 2.0 Final Above upper panic limits EDT { CALLED TO TOM SOTO BY ROOPA AT 1502 { READ BACK BY TOM SOTO RA AT 1458 LACTATE 3 HR NOTIFIED TO: _CHARLES 05/14/25.1500.CWB. . . LACTATE 3 HR NOTIFIED BY: _ROOPA 05/14/25.1500.CWB. . . TROPONIN Final JOAQUÍN: 05/14/2025 12:20:00 EDT MsgRcvd: 05/14/2025 13:02 EDT Lab Test Result Reference Status Received 05/14/2025 13:02 HS TROPONIN 9.5 pg/mL 0.0 - 51.4 Final EDT URINALYSIS Final JOAQUÍN: 05/14/2025 13:00:00 EDT MsgRcvd: 05/14/2025 13:29 EDT Lab Test Result Reference Status Received 05/14/2025 13:29 URINALYSIS Final EDT URINALYSIS 05/14/2025 13:29 Specimen Type R New Order EDT 05/14/2025 13:29 Color yellow NORMAL: YELLOW Final EDT 05/14/2025 13:29 Clarity very cloudy NORMAL: CLEAR Final EDT 05/14/2025 13:29 ph 5 NORMAL: 5.0-8.0 Final EDT 10 of 13 TAMIA Gibson, : 1955, , 30 NORMAL: 05/14/2025 13:29 Protein Final Abnormal NEGATIVE EDT 05/14/2025 13:29 Glucose NORM NORMAL: NORMAL Final EDT NORMAL: 05/14/2025 13:29 Ketone NEG Final NEGATIVE EDT NORMAL: 05/14/2025 13:29 Bilirubin NEG Final NEGATIVE EDT 25 NORMAL: 05/14/2025 13:29 Blood Final Abnormal NEGATIVE EDT 05/14/2025 13:29 Urobilinog NORM NORMAL: NORMAL Final EDT NORMAL: 05/14/2025 13:29 Sp [place] 1.015 Final 1.010-1.030 EDT NORMAL: 05/14/2025 13:29 Nitrite NEG Final NEGATIVE EDT 500 NORMAL: 05/14/2025 13:29 Leukocytes Final Abnormal NEGATIVE EDT 05/14/2025 13:29 Microscopic SEE BELOW Final EDT MICROSCOPIC 05/14/2025 13:29 Wbc >50 0-5/hpf Final EDT 05/14/2025 13:29 Rbc 0-5 0-3/hpf Final EDT 05/14/2025 13:29 Casts NONE Final EDT Candy - TAMIA PANDA, : 1955, , 05/14/2025 13:29 Crystals NONE Final EDT 05/14/2025 13:29 Amorphous NONE Final EDT 05/14/2025 13:29 Bacteria 4+ Final EDT 05/14/2025 13:29 Epi Cells OCC Final EDT 05/14/2025 13:29 Mucous NONE Final EDT 05/14/2025 13:29 Yeast NONE Final EDT PROGRESS AND PROCEDURES Differential Diagnosis: Other possible considerations: Pneumonia, COPD exacerbation, ACS, sepsis, viral illness, intra-abdominal process, UTI. MEDICAL DECISION MAKING: (patient hypoxic on her baseline oxygen. Increase to 4 L. Patient treated with aerosols. Evidence of large left-sided pneumonia. Treated with Rocephin azithromycin. Lactate elevated at 3.1. Treated only with 1 L of normal saline initially given patient's history of heart failure. Repeat lactate up to 4 however patient's heart rate on re-evaluation has decreased from proximally 130- 100. Mentation much improved. Blood gas shows no significant retention. Evidence of UTI. Rocephin should cover this infection source. Blood cultures pending. Started on 150 mL an hour of normal saline. Discussed with hospitalist and patient will be admitted for further treatment and evaluation.). Disposition: Disposition Decision Time: 15:38 05/14/2025. Patient admitted to [facility]. Departure Time: 18:21 05/14/2025. Admitted in stable condition. Condition: stable. CLINICAL IMPRESSION 12 of 13 Narrative - TAMIA PANDA, : 1955, , Sepsis. Pneumonia. Urinary tract infection. (Electronically signed by Chente Sierra D.O. 05/14/25 18:22:00 EDT) Generated by [facility] ED MED ADMINISTRATION DETAIL Observed: 0 05/14/2025 3:43 PM Status: F Source: [facility] Trade Mark Examiner - TAMIA PANDA D OB: 1955, , Medication Administration Record [address] [place] [address] [id number] 05/14/2025 Patient: TAMIA PANDA Sex: Female : 1955 Age: 70y MEASUREMENTS: Wt: 73.5 kg, Ht/Laith: 61.0 in, BMI: 30.61 ALLERGIES: Unable to state. Medication Ordered Medication Administration Date/Time Albuterol-Ipratropiu 13:03 05/14 Albuterol-Ipratropium (DuoNeb) 3mg/0.5mg Neb Tx 3 Given m (DuoNeb) mL given. Given by the respiratory therapist. Allergies verified. 13:03 05/14/2025 3mg/0.5mg Neb Tx Information reviewed with patient. - 13:03 Isidoro MurrayRChantale. Shan Sierra, 3 mL (NOW x1) R.R.T. Scanned Albuterol-Ipratropiu 13:03 05/14 Albuterol-Ipratropium (DuoNeb) 3mg/0.5mg Neb Tx 3 Given m (DuoNeb) mL given. - 13:05 Shan Sierra R.R.T. 13:03 05/14/2025 3mg/0.5mg Neb Tx Shan Kanger, 3 mL (NOW x1) R.R.T. Scanned 1 of 3 Trade Mark Examiner - TAMIA PANDA, : 1955, , Medication Ordered Medication Administration Date/Time CefTRIAXone 12:57 05/14 CefTRIAXone (Rocephin) IVPB 2gm/50ml NS 2 g Started (Rocephin) IVPB started at 100 mL/hr diluted in sodium chloride IVPB 0.9 % 12:57 05/14/2025 2gm/50ml NS 2 g Minibag+ 50 mL via Site# 1. Allergies verified and confirmed 5 Clifford Davis R.N. diluted in sodium rights. IV patency established. IV site checked: no pain, redness, or Stopped chloride IVPB 0.9 % swelling. IV flushed thoroughly pre-medication administration. 13:15 05/14/2025 Minibag+ 50 mL at Information reviewed with patient including reason for taking this Clifford Davis R.N. 100 mL/hr (NOW x1) medication. - 12:58 Clifford Davis R.N. Scanned 13:15 05/14 Medication Discontinued: IV infused. Total amount infused: 50 mL. IV patency established. IV site checked: no pain, redness, or swelling. IV flushed thoroughly post-medication administration. - 13:15 Clifford Davis R.N. Azithromycin 13:05/14 Azithromycin (Zithromax) IVPB 500 mg started at 250 Started (Zithromax) IVPB mL/hr diluted in sodium chloride IVPB 0.9 % 250 mL via Site# 2. 13:11 05/14/2025 500 mg diluted in Allergies verified and confirmed 5 rights. Via IV pump. IV patency Светлана Echols.N. sodium chloride established. IV site checked: no pain, redness, or swelling. IV Stopped IVPB 0.9 % 250 mL flushed thoroughly pre-medication administration. Information 14:11 05/14/2025 at 250 mL/hr (NOW reviewed with patient including reason for taking this medication. - Clifford Davis R.N. x1) 13:14 Clifford Davis R.N. Scanned 14:11 05/14 Medication Discontinued: IV completed. Total amount infused: 100 mL. IV patency established. IV site checked: no pain, redness, or swelling. IV flushed thoroughly post-medication administration. - 07:19 Clifford Davis R.N. IV NS 0.9 % 1000 12:59 05/14 IV NS 0.9 % 1000 mL started in bag#1 1000 mL at Started mL at 999 mL/hr 999 mL/hr via Site# 1. Allergies verified and confirmed 5 rights. IV 12:59 05/14/2025 (NOW x1) patency established. IV site checked: no pain, redness, or swelling. Clifford Davis R.N. IV flushed thoroughly pre-medication administration. Information Stopped reviewed with patient including reason for taking this medication. - 14:00 05/14/2025 12:59 Clifford Davis R.N. Clifford Davis R.N. Scanned 14:00 05/14 Medication Discontinued: bag #1 infused. Total amount infused: 1000 mL. - 07:20 Clifford Davis R.N. 2 of 3 Trade Mark Examiner - TAMIA PANDA, : 1955, , Medication Ordered Medication Administration Date/Time IV NS 0.9 % 1000 15:37 05/14 IV NS 0.9 % 1000 mL started in bag#1 1000 mL at Started mL at 150 mL/hr 150 mL/hr via Site# 2. Allergies verified and confirmed 5 rights. Via 15:37 05/14/2025 (NOW x1) IV pump. IV patency established. IV site checked: no pain, redness, Clifford Davis R.N. or swelling. IV flushed thoroughly pre-medication administration. Not Scanned Information reviewed with patient including reason for taking this medication. - 07:21 Clifford Davis R.N. 16:40 05/14 Medication Continued: upon admission at the rate of 150 mL/hr. 700 mL remaining in bag. - 07:21 Clifford Davis R.N. 3 of 3 ED ORDER SHEET ([facility]OE ONLY) Observed: 3:43 PM Status: F Source: [facility] Order Sheet - TAMIA PANDA, : 1955, , Order Sheet [place] [id number] 05/14/2025 Patient: TAMIA PANDA Sex: Female : 1955 Age: 70y MEASUREMENTS: Wt: 73.5 kg, Ht/Laith: 61.0 in, BMI: 30.61 ALLERGIES: Unable to state. MEDICATION/IV/DRIP/FLUID ORDERS Order Description Priority Entered Acknowledged Completed Albuterol-Ipratropium (DuoNeb) 12:34 05/14/2025 12:52 13:03 3mg/0.5mg Neb Tx3 mL (NOW Chente Sierra, 05/14/2025 05/14/2025 x1) Shan Benoit, R.N. R.R.T. Albuterol-Ipratropium (DuoNeb) 12:34 05/14/2025 12:52 13:05 3mg/0.5mg Neb Tx3 mL (NOW Chente Sierra, 05/14/2025 05/14/2025 x1) Shan Benoit, R.N. R.R.T. Reason for ordering with alerts: Benefits outweigh risks --12:34 05/14/2025 Chente Sierra D.O. CefTRIAXone (Rocephin) IVPB 12:43 05/14/2025 12:52 12:58 2gm/50ml NS2 g diluted in Chente Sierra, 05/14/2025 05/14/2025 sodium chloride IVPB 0.9 % tSan.OClifford Morrow, Minibag+ 50 mL at 100 mL/hr R.N. R.N. (NOW x1) Azithromycin (Zithromax) 12:43 05/14/2025 12:52 13:14 [id number] mg diluted in sodium Chente Lemvalentina, 05/14/2025 05/14/2025 chloride IVPB 0.9 % 250 mL at D.O. Clifford Echols, 1 of 4 Order Sheet - TAMIA PANDA, : 1955, , 250 mL/hr (NOW x1) R.NMagda RMagdaNMagda IV NS 0.9 %1000 mL at 999 12:45 05/14/2025 12:52 12:59 mL/hr (NOW x1) Chente Sierra, 05/14/2025 05/14/2025 Clifford Benoit R.N. R.N. Reason for ordering with alerts: Benefits outweigh risks --12:45 05/14/2025 Chente Sierra D.O. IV NS 0.9 %1000 mL at 150 15:04 05/14/2025 15:37 07:21 mL/hr (NOW x1) Chente Sierra, 05/14/2025 05/15/2025 Clifford Benoit R.N. R.N. Reason for ordering with alerts: Benefits outweigh risks --15:04 05/14/2025 Chente Sierra D.O. LAB ORDERS Order Description Priority Entered Acknowledged Collected Completed EKG - ED Stat Stat 12:17 05/14/2025 12:50 05/14/2025 12:51 05/14/2025 Augusta Javier R.N. Lem[place], D.O. Troponin-I Stat Stat 12:17 05/14/2025 12:50 05/14/2025 12:51 05/14/2025 Augusta Javier R.N. Lemasters, D.O. Lactate, Serum Stat Stat 12:17 05/14/2025 12:50 05/14/2025 12:51 05/14/2025 Augusta Javier R.N. Lemasters, D.O. CBC w Diff Stat Stat 12:17 05/14/2025 12:50 05/14/2025 12:51 05/14/2025 Augusta Javier R.N. Lemasters, D.O. 2 of 4 Order Sheet - TAMIA PANDA, : 1955, , CMP Stat Stat 12:17 05/14/2025 12:50 05/14/2025 12:51 05/14/2025 Augusta Javier R.N. Lemasters, D.OMagda Blood Culture Stat 12:17 05/14/2025 12:50 05/14/2025 12:51 05/14/2025 [Nancy] # 1 Stat Augusta Javier R.N. Lemasters, D.O. Blood Culture Stat 12:17 05/14/2025 12:50 05/14/2025 16:40 05/14/2025 [Nancy] # 2 Stat Augusta Javier R.N. Lemasters, D.O. Urinalysis Stat Stat 12:17 05/14/2025 12:50 05/14/2025 16:40 05/14/2025 Augusta Javier R.N. Lemasters, D.O. Flu Swab (Influenzae Stat 12:17 05/14/2025 12:50 05/14/2025 12:51 05/14/2025 AAg) Stat Augusta Javier R.N. Lemasters, D.O. Rapid COVID (SARS) Stat 12:17 05/14/2025 12:50 05/14/2025 16:40 05/14/2025 ANTIGEN TEST Stat Augusta Javier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 Animal/508237 006(SNOMED CT) CATS OTHER: SEE C Med [facility] 04/10/2016 Animal/024696 006(SNOMED CT) DOGS OTHER: SEE C [facility] 04/10/2016 DRUG INGREDI/20476 1003(SNOMED CT) ORPHENADRINE UNKNOWN [facility] 04/04/2015 Chemical/4201 69550(SNOMED CT) ADHESIVE TAPE (ROSINS) INTOLERANCE High [facility] 04/04/2015 DRUG INGREDI/44185 1003(SNOMED CT) NIACIN UNKNOWN [facility] 12/11/2011 DRUG INGREDI/52850 1003(SNOMED CT) CIPROFLOXACIN OTHER: SEE C [facility] 10/18/2004 Drug Class/9585902 03(SNOMED CT) XANTHINES UNKNOWN [facility] Drug Allergy/67655 8002(SNOMED CT) NORGESIC FORTE/24613859(RXNORM) U [facility] Drug Allergy/52739 8002(SNOMED CT) CIPRO/37708070(RXNORM) U [facility] ENCOUNTERS ADMIT/DISCHARGE ACCOUNT NUMBER ADMITTING ENCOUNTER CLASS LOCATION SOURCE 05/14/2025/05/17/20 [id number] ORTEGA MACIEL MD Inpatient Encounter BuildinR oom: SCU1 [facility] 12/05/2024/12/06/19 [id number] MAEGAN KIM Ambulatory Building:[facility] 12/04/2024/12/05/19 [id number] MUKUL CAI Emergency BuildinR oom: ERBed: 7 [facility] 10/28/2024/10/28/19 [id number] [facility]ERS ENCOUNTER GUARANTOR PAYER SUBSCRIBER SOURCE 05/14/2025 TAMIA HENLEY: [place], [place] [address]Pdn: () Primary Insurance:[facility] INPATIENT DUALPolicy Number: [id number] Date:Plan Name:Carlos HELNEY: [id number] [facility] [place] [address] [facility] 05/14/2025 Secondary Insurance:MEDICAID INPATIENTPolicy Number: [id number] Date: TAMIA SENGeoffDOB: [id number] [place] [address] [facility] 12/05/2024 TAMIA SENZDOB: [place], [place] [address]Nwk: () Primary Insurance:[facility] MEDICARE HMOPolicy Number: [id number] Date: TAMIA SENZDOB: [id number] [place] [address] [facility] 12/05/2024 Secondary Insura nce:[place] MEDICAIDPolicy Number: [id number] Date: TAMIA SENZDOB: [id number] [place] [address] [facility] 12/04/2024 TAMIA SENZDOB: [place], [place] [address]Tku: () Primary Insurance:[facility] OUTPATIENT DUALPolicy Number: [id number] Date:Plan Name:C3 TAMIA SENZDOB: [id number] [place] [address] [facility] 12/04/2024 Secondary Insurance:MEDICAID OUTPATIENTPolicy Number: [id number] Date:Plan Name:X1 TAMIA SENZDOB: [id number] [place] [address] [facility] 10/28/2024 Primary Insuranc e:[facility] DUAL COMPLETE HMO POS SNPPolicy Number: [id number] Date:0750-98-81Acrs Name:Chloe Rodriguez SENZDOB: [id number] [place] [address] [facility]
[2025-06-19 13:36] VITALS: BP 134/99; PULSE 83; RESP 16; TEMP 37; O2SAT 99; BMI 30.2
--- NOTE | 2025-06-19 14:19 | CT_ITS ---
PROCEDURE: SPINE CERVICAL WITHOUT CONTRAS 06/19/2025 REASON FOR EXAM: FALL TECHNIQUE: Procedure Code: CTSPC Modality: CT Procedure: SPINE CERVICAL WITHOUT CONTRAS Coronal and Sagittal reconstruction series were provided. One or more dose reduction techniques were used (e.g., Automated exposure control, adjustment of the mA and/or kV according to patient size, use of iterative reconstruction technique. RADIATION DOSE SUMMARY: DLP: 1126.70 mGycm COMPARISON: None available. FINDINGS: The visualized posterior fossa contents appear within normal limits for the patient's stated age. The normal cervical lordosis is maintained. The atlantooccipital and atlantoaxial joints appear normally aligned. The atlas and axis are intact. The remaining cervical vertebral bodies are normal in height. The cervical vertebral bodies are normal in alignment.There is no evidence of focal lytic or sclerotic lesion in the cervical spine. There is no prevertebral soft tissue swelling. Degenerative changes of the cervical spine including central disc protrusions, facet arthrosis, and uncovertebral spurring. Moderate spinal canal stenosis at C3-C4. Moderate neural foraminal stenosis at multiple levels including C3-C4 and C4-C5. CT/Spine Cervical without Contras IMPRESSION: No acute fracture or dislocation in the cervical spine. Reading Location: [facility]
--- NOTE | 2025-06-19 14:19 | CT_ITS ---
PROCEDURE: BRAIN/HEAD WITHOUT CONTRAST 06/19/2025 REASON FOR EXAM: TRAUMA TECHNIQUE: Procedure Code: CTBR Modality: CT Procedure: BRAIN/HEAD WITHOUT CONTRAST Coronal and Sagittal reconstruction series were provided. One or more dose reduction techniques were used (e.g., Automated exposure control, adjustment of the mA and/or kV according to patient size, use of iterative reconstruction technique. RADIATION DOSE SUMMARY: DLP: 1126.7 mGycm COMPARISON: CT head 08/03/2022 FINDINGS: No acute hemorrhage. No acute transcortical infarct. No significant mass effect or brain herniation. Global cerebral volume loss. Hydrocephalus. No extra-axial fluid collection. The basal cisterns are patent. Under pneumatization and sclerosis of the right mastoid air cells. The left mastoid air cells are clear. Near-complete opacification of the frontal sinuses. Scattered paranasal mucosal thickening. Nasal septal perforation. Postsurgical changes in the paranasal sinuses. The calvarium appears intact. Left frontal scalp hematoma. CT/Brain/Head without Contrast IMPRESSION: No CT evidence of acute intracranial hemorrhage, transcortical infarct, or sign ificant mass effect. Left frontal scalp hematoma. Paranasal sinus disease. Reading Location: [id number]
--- NOTE | 2025-06-19 14:20 | ED.VIS.FALL ---
HPI HPI - Fall History of Present Illness Chief Complaint: Fall Informant: patient Occured/Mechanism Occurred: Today Mechanism/Context: Yes same level fall and Yes trip Usually ambulates: Without assistance Pain/Injury Pain Location: head, neck and lower extremity (Left hip.) Quality of Pain: Dull and Aching Current Severity: Mild Maximum Severity: Mild Associated Symptoms Associated Symptoms: Negative for Parasthesias, Weakness, Loss of function, Inability to ambulate, Loss of consciousness or Amnesia Narrative Narrative: 70-year-old female history of diabetes, A-fib on Eliquis, chronic kidney disease, COPD. Tripped and fell at home and her feet were tangled in her close fell to carpeted floor striking her left forehead. Complaining of pain to her head, neck and left hip. States she has chronic left hip pain. Denies any LOC. Denies any recent illness. She does live alone at home with her dog. Prior similar symptoms: No Recent Illness/Hospitalization: No PFSH PFSH Medical History ESBL (extended spectrum beta-lactamase) producing bacteria infection Community acquired pneumonia Pneumonia COPD exacerbation Open wound Chronic kidney disease (CKD) History of echocardiogram History of atrial fibrillation Vertigo Wears hearing aid Wears dentures Wears glasses Post-menopausal Cancer Anxiety Tinnitus Thyroid disease Insulin dependent diabetes mellitus Diabetes Uses wheelchair Walker as ambulation aid Arthritis History of renal disease Anemia High cholesterol Pulmonary embolism DVT (deep venous thrombosis) Excessive bleeding Back pain Injury of back Migraine headache Difficulty swallowing History of diverticulitis Gastroparesis History of IBS Gastric reflux Former smoker Sleep apnea On home oxygen therapy Diabetic neuropathy History of edema History of Holter monitoring History of stress test History of CHF (congestive heart failure) History of heart attack Cardiology follow-up encounter Paroxysmal atrial fibrillation Chronic kidney disease (CKD) stage G3b/A1, moderately decreased glomerular filtration rate (GFR) between 30-44 mL/min/1.73 square meter and albuminuria creatinine ratio less than 30 mg/g Anxiety Closed intertrochanteric fracture of left femur Fall at home Broken rib Pulmonary hypertension Gastroparesis Presence of stent in coronary artery (~12/07/03) Mixed hyperlipidemia History of cervical cancer DDD (degenerative disc disease) Lung nodule RLS (restless legs syndrome) Pulmonary embolism History of DVT (deep vein thrombosis) Atherosclerotic heart disease of [place] coronary artery without angina pectoris Essential hypertension Paroxysmal A-fib Diabetes mellitus type 2 in obese PARESH (obstructive sleep apnea) Chronic respiratory insufficiency COPD (chronic obstructive pulmonary disease) GERD (gastroesophageal reflux disease) Hypothyroidism Home Medications ?Medication ?Instructions ?Recorded ?Last Taken ?Type atorvastatin 40 mg tablet 40 mg PO QHS CHOLESTEROL LOWERING 02/03/18 03/01/24 History ascorbic acid (vitamin C) 500 mg 500 mg PO DAILY@1700 supplement 05/17/18 03/02/24 History tablet buspirone 10 mg tablet 10 mg PO BID depression 06/12/22 03/02/24 History duloxetine 60 mg capsule,delayed 60 mg PO DAILY MENTAL HEALTH 06/12/22 03/02/24 History release albuterol sulfate 90 mcg/actuation 2 puff inhalation PRN PRN COPD 12/12/22 11/26/23 History aerosol inhaler buspirone 10 mg tablet 15 mg PO QHS 06/03/23 03/01/24 History insulin lispro 100 unit/mL 14 unit (0.14 mL) subcut BREAKFAST 08/20/23 03/02/24 Rx subcutaneous pen DIABETES #15 mL insulin lispro 100 unit/mL 14 unit (0.14 mL) subcut LUNCH 08/20/23 03/02/24 Rx subcutaneous pen DIABETES #15 mL insulin lispro 100 unit/mL 24 unit (0.24 mL) subcut DINNER 08/20/23 03/01/24 Rx subcutaneous pen DIABETES #15 mL insulin glargine 100 unit/mL (3 58 - 60 unit subcut BID DM 11/25/23 03/02/24 History mL) subcutaneous pen (Lantus Solostar U-100 Insulin) omeprazole 40 mg capsule,delayed 40 mg PO DAILY 11/25/23 03/02/24 History release levothyroxine 88 mcg tablet 88 mcg PO DAILY 01/19/24 03/02/24 History (Euthyrox) metoprolol tartrate 50 mg tablet 50 mg PO BID 03/02/24 03/02/24 History amlodipine 5 mg tablet 5 mg PO DAILY for blood pressure 08/31/24 Unknown Rx #30 TABLETS linaclotide 145 mcg capsule 145 mcg PO QAM #90 caps 01/03/25 Unknown Rx (Linzess) nitroglycerin 0.4 mg sublingual 0.4 mg sublingual Q5-15M PRN chest 01/12/25 Unknown Rx tablet pain #25 tabs apixaban 5 mg tablet (Eliquis) 5 mg PO BID #60 tabs 06/09/25 Unknown Rx amiodarone 200 mg tablet 200 mg PO DAILY 06/19/25 Unknown History fluticasone fur. 100 mcg-umeclid 1 ea inhalation DAILY 06/19/25 Unknown History 62.5 mcg-vilant 25 mcg inhalat.powder (Trelegy Ellipta) Allergy/AdvReac Type Severity Reaction Status Date / Time metoclopramide (From Reglan) Allergy Intermediate Itching Verified 06/19/25 13:40 ciprofloxacin (From Cipro) Allergy Hives Verified 06/19/25 13:40 latex Allergy matos me Verified 06/19/25 13:40 niacin (From Niaspan Allergy Hives Verified 06/19/25 13:40 Extended-Release) ranolazine (From Ranexa) Allergy Itching Verified 06/19/25 13:40 orphenadrine AdvReac Mild PT UNABLE Verified 06/19/25 13:40 TO RESPOND-NEEDS F/U adhesive tape AdvReac Other Verified 06/19/25 13:40 orphenadrine citrate (From AdvReac groggy Verified 06/19/25 13:40 Norgesic) Family History Mother CAD (coronary artery disease) Father CAD (coronary artery disease) Brother CAD (coronary artery disease) Asthma Sister Hypertension Sister Diabetes Sister Heart disease Surgical History History of hip surgery History of coronary artery stent placement (06/04/23) History of cardiac catheterization Hx of surgical procedure Presence of coronary angioplasty implant and graft (~12/07/03) History of left heart catheterization (LHC) (~09/28/19) History of surgery on wrist History of tubal ligation History of nasal surgery History of knee surgery History of hernia repair History of cholecystectomy History of total abdominal hysterectomy Social History Smoking Status: Light Smoker (<10/day) quit status: has quit before alcohol intake: never substance use type: does not use caffeine: Yes Type: coffee Number of servings: 1 ROS ROS ED ROS Narrative Patient denies recent illness. Constitutional Constitutional ED: Denies chills or fever(s) Eyes Eyes: Denies blurry vision ENT ENT ED: Denies ear pain Cardiovascular Cardiovascular: Denies chest pain Respiratory/Chest Respiratory/Chest: Denies cough or dyspnea Gastrointestinal Gastrointestinal: Denies abdominal pain, diarrhea, nausea or vomiting Genitourinary Genitourinary ED: Denies dysuria or hematuria Musculoskeletal Musculoskeletal: Denies arthralgias Integumentary Denies abscess Neurologic Neurologic: Reports headache(s) Psychiatric Psychiatric: Denies anxiety or depression Endocrine Endocrinology: Denies polydipsia Hematologic/Lymphatic Hematologic/Lymphatic: Reports easy bleeding and easy bruising; Denies lymphadenopathy Allergic/Immunologic Allergic/Immunologic ED: Denies mouth swelling, tongue swelling or urticaria EXAM Physical Exam Narrative Exam Narrative: 70-year-old female lying in bed vital signs stable afebrile. No acute distress. H EENT exam pupils round react light. Moist pink membranes. No facial droop. She has an abrasion on her left forehead. Small hematoma. No active bleeding. No laceration. Neck trachea midline. Tenderness primarily right lateral neck not so much over the C-spine. Lungs clear to auscultation bilaterally. Heart rate about 80 no murmur. Chest wall and ribs nontender. Sternum nontender. Abdomen soft nontender. Back nontender. Kyphotic. No bruising. Pelvic girdle intact. Tenderness left hip. No shortening or rotation. Right hip nontender. Knees, ankles nontender. Normal dorsi plantarflexion. Upper extremities nontender. Normal range of motion. 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 Shoulders and elbows nontender. Neurologically she is awake alert. Answering questions following commands. GCS 15. Const Vital Signs: 06/19/25 13:36 06/19/25 15:35 Temperature 98.6 F Temperature Source Oral Pulse Rate 83 113 H Respiratory Rate 16 17 Blood Pressure 134/99 H 120/75 Blood Pressure Mean 110 90 Pulse Ox 99 94 Oxygen Delivery Method Room Air Positive well nourished and well developed; Negative for cachectic, contractures or unkempt General Appearance ED: well developed and NAD; Negative for unkempt, cachectic or contractures Nutritional Appearance: Negative for cachectic HEENT Reports normocephalic HEENT Narrative: Left forehead contusion with hematoma. trauma, contusion and hematoma; Negative for atraumatic Eyes PERRL and EOMs intact bilaterally General Eye ED: Negative for pale conjunctiva or scleral icterus Neck no lymphadenopathy and supple Neck Narrative: Right lateral neck. General: tenderness Chest Wall inspection of chest normal and palpation of chest normal Resp normal respiratory effort, no retractions and clear to auscultation bilaterally Effort and Inspection: Negative for pain with movement Cardio regular rate, regular rhythm, S1 normal heart sound, S2 normal heart sound and no murmurs GI non-tender, non-distended and no masses Auscultation: normoactive bowel sounds Palpation: soft; Negative for guarding or rebound tenderness present Back/Spine no CVA tenderness Cervical Spine: Negative for cervical spine tenderness Lumbar Spine / Lower Back: Negative for lumbar spinal tenderness Neuro oriented x3, CN's II-XII intact bilaterally, moves all extremities and no focal motor deficits Crystal Coma Scale: document GCS findings Spontaneous Obeys Commands Oriented 15 Sensorium / Orientation: alert, oriented to person, oriented to place, oriented to time and orientation impaired Motor Exam: strength 5/5 throughout Psych mental status grossly normal and thought process normal Appearance: Negative for unkempt Skin Skin Narrative: Left forehead abrasion with hematoma. Lesions: no lesions Rashes: no rashes Trauma: abrasion MDM MDM MDM Narrative Medical decision making narrative: 70-year-old female on Eliquis due to A-fib fall head injury. She will need a CAT scan of her head due to anticoagulation and trauma. CT C-spine. Left hip x-ray. I do not think she needs labs at this time. She wanted something for pain. She be given 1 [place]. Repeat exam at 4:22 PM patient doing well. We discussed her CAT scan and x-ray results. Repeat exam there is no new areas of injury. Nurses will clean and dress her left forehead contusion. She will be discharged home with head injury instructions. She states that her grandson is coming to pick her up. History & Record Review Discussion w/independent historian: Patient Additional record(s) reviewed:: Prior inpatient record, Prior outpatient record, Prior ED visit and Prior labs Radiography Diagnostic Testing: Clinical Impression(s) from Imaging Studies Brain CT 06/19/25 14:19 IMPRESSION: No CT evidence of acute intracranial hemorrhage, transcortical infarct, or significant mass effect. Left frontal scalp hematoma. Paranasal sinus disease. Reading [facility] Cervical Spine CT 06/19/25 14:19 IMPRESSION: No acute fracture or dislocation in the cervical spine. Reading Location[facility] Left hip and pelvis x-ray 3 views interpreted by by myself and the radiologist. Patient has a prior femur fracture with orthopedic hardware is in good alignment. There is no acute fracture or dislocation of the the that hip, femur or pelvis. CT of the brain shows no intracranial bleed as read by the radiologist and reviewed by me. CT of the C-spine shows chronic changes but no acute fracture. Discharge Plan Triage Chief Complaint: Fall ED Provider: Avinash Hodge Dx/Rx/DC Orders Clinical Impression: Fall, Closed head injury, Chronic anticoagulation, History of atrial fibrillation, Contusion of hip, left Instructions: ED Head Injury (Adult) Prescriptions: No Action buspirone 10 mg tablet 10 mg PO BID Patient Comments: PER PHARMACY PT TAKES 1 TAB (10 MG) IN THE MORNING AND AFTERNOON AND TAKES 1.5 TAB (15 MG) IN THE EVENING Rx Instructions: PER PHARMACY PT TAKES 1 TAB (10 MG) IN THE MORNING AND AFTERNOON AND TAKES 1.5 TAB (15 MG) IN THE EVENING Linzess 145 mcg capsule 145 mcg PO QAM Qty: 90 1RF Rx Instructions: take 30 minutes before breakfast every morning atorvastatin 40 MG tablet 40 mg PO QHS Patient Comments: cholesterol duloxetine 60 mg capsule,delayed release(DR/EC) 60 mg PO DAILY Patient Comments: mental health ascorbic acid (vitamin C) 500 MG tablet 500 mg PO DAILY@1700 Patient Comments: Supplement albuterol sulfate 90 mcg/actuation HFA aerosol inhaler 2 puff INHALATION PRN PRN (Reason: COPD) buspirone 10 mg tablet 15 mg PO QHS Patient Comments: PER PHARMACY PT TAKES 1 TAB (10 MG) IN THE MORNING AND AFTERNOON AND TAKES 1.5 TAB (15 MG) IN THE EVENING Rx Instructions: PER PHARMACY PT TAKES 1 TAB (10 MG) IN THE MORNING AND AFTERNOON AND TAKES 1.5 TAB (15 MG) IN THE EVENING insulin lispro 100 unit/mL insulin pen 14 unit SC LUNCH Qty: 15 0RF Rx Instructions: hold if glucose <100 insulin lispro 100 unit/mL insulin pen 14 unit SC BREAKFAST Qty: 15 0RF Rx Instructions: hold if glucose <100 insulin lispro 100 unit/mL insulin pen 24 unit SC DINNER Qty: 15 0RF Rx Instructions: hold if glucose <100 omeprazole 40 mg capsule,delayed release(DR/EC) 40 mg PO DAILY insulin glargine [Lantus Solostar U-100 Insulin] 100 unit/mL (3 mL) insulin pen 58 - 60 unit SC BID levothyroxine [Euthyrox] 88 mcg tablet 88 mcg PO DAILY metoprolol tartrate 50 mg tablet 50 mg PO BID amiodarone 200 mg tablet 200 mg PO DAILY Trelegy Ellipta 100-62.5-25 mcg blister with device 1 ea inhalation DAILY amlodipine 5 mg tablet 5 mg PO DAILY Qty: 30 11RF nitroglycerin 0.4 mg tablet, sublingual 0.4 mg sublingual Q5-15M PRN (Reason: chest pain) Qty: 25 3RF Eliquis 5 mg tablet 5 mg PO BID Qty: 60 11RF Primary Care Provider: Dylon Murrieta Chi Referrals: Dylon Murrieta Chi, MD [Primary Care Provider, Geriatrics] - As Needed Activity Restrictions/Additional Instructions: The CAT scans of your head and neck look good. Your left hip x-ray looked good. Keep the abrasion on your left forehead clean. Place antibiotic ointment on it daily. Ice to your forehead and hip. Tylenol for pain. You are currently on the blood thinner Eliquis. Hold it for the next 24 hours. You can restart the medication on Friday. Return if severe headache, intractable vomiting or not acting right. Follow-up with your doctor as needed. Print Language: Kazakh Disposition Disposition: Home, Self Care
[2025-06-19] MEDS: HYDROcodone Bitartrate/Apap 5/325 Tablet PO (14:25)
--- NOTE | 2025-06-19 14:35 | RAD_ITS ---
PROCEDURE: HIP, UNI W/ PELVIS 2-3 VIEWS 06/19/2025 REASON FOR EXAM: FALL TECHNIQUE: Procedure Code: [facility] Modality: DX Procedure: HIP, UNI W/ PELVIS 2-3 VIEWS Laterality: Left COMPARISON: AP pelvis and left hip study dated 12/18/2022, 08/05/2022, and 12/24/2021 FINDINGS: Bones: Diffuse osteopenia of the lower lumbar spine, bony pelvis and both hips are noted. A radiopaque intramedullary kaylan and screws are present through the proximal left femur. There is no fracture or loosening of the radiopaque hardware. Please note that the most distal portion of the hardware is not included on this study. The femoral fracture appears to be in near anatomic alignment. No acute fractures are noted. Degenerative changes of the lower lumbar spine are noted. Joints: SI joints are unremarkable.. Pubic symphysis is unremarkable. Very mild arthritic changes are seen involving the right hip. Very mild arthritic changes are seen involving the left hip. Multiple surgical janel and clips are projected over the lower abdomen and pelvic region and are similar when compared to the prior exam. Reading Location: [id number]
[2025-06-19 15:35] VITALS: BP 120/75; PULSE 113; RESP 17; O2SAT 94
[2025-06-19 16:58] VITALS: BP 132/90; PULSE 95; RESP 18; TEMP 36.8; O2SAT 95
== END 2025-06-19 17:23 | disposition home or self-care (01) ==
PROVIDERS: Emergency Provider Emergency Medicine; PCP Family Medicine Geriatric Medicine; Visit Provider Emergency Medicine
DX: S00.03XA Contusion of scalp, initial encounter (principal); I13.0 Hypertensive heart and chronic kidney disease with heart failure and stage 1 through stage 4 chronic kidney disease, or unspecified chronic kidney disease; I50.9 Heart failure, unspecified; J44.1 Chronic obstructive pulmonary disease with (acute) exacerbation; I48.0 Paroxysmal atrial fibrillation; Z79.4 Long term (current) use of insulin; E11.22 Type 2 diabetes mellitus with diabetic chronic kidney disease; N18.32 Chronic kidney disease, stage 3b; S70.02XA Contusion of left hip, initial encounter; W18.30XA Fall on same level, unspecified, initial encounter; I25.10 Atherosclerotic heart disease of native coronary artery without angina pectoris; E78.2 Mixed hyperlipidemia; E03.9 Hypothyroidism, unspecified; W18.09XA Striking against other object with subsequent fall, initial encounter; Y92.009 Unspecified place in unspecified non-institutional (private) residence as the place of occurrence of the external cause; Z79.01 Long term (current) use of anticoagulants; Z79.890 Hormone replacement therapy; Z79.899 Other long term (current) drug therapy; Z90.710 Acquired absence of both cervix and uterus; Z86.711 Personal history of pulmonary embolism; Z86.718 Personal history of other venous thrombosis and embolism; Z95.5 Presence of coronary angioplasty implant and graft
CPT/HCPCS: 70450; 72125; 73502; 99283

== ENCOUNTER 2025-07-31 02:45 | Emergency (ER) | payer MEDICARE, MEDICAID, SELFPAY ==
[2025-07-31 02:50] VITALS: BP 129/88; PULSE 70; RESP 16; TEMP 36.7; O2SAT 96; BMI 29.3
--- NOTE | 2025-07-31 02:55 | EKG12_ITS ---
Test Reason : CP Blood Pressure : */* mmHG Vent. Rate : 64 BPM Atrial Rate : * BPM P-R Int : * ms QRS Dur : 70 ms QT Int : 430 ms P-R-T Axes : * -31 62 degrees QTcB Int : 443 ms Atrial fibrillation /flutter Left axis deviation Inferior infarct (cited on or before 04-Dec-2024) Abnormal ECG Confirmed by Edwin Nowak ([id number]), field map editor YAN SUH ([id number]) on 08/01/2025 10:23:59 AM Referred By: Confirmed By: Edwin Nowak
--- NOTE | 2025-07-31 02:55 | CT_ITS ---
PROCEDURE: ABDOMEN/PELVIS WITHOUT CONT 07/31/2025 REASON FOR EXAM: EPIGASTRIC PAIN TECHNIQUE: Procedure Code: CTABDPEL Modality: CT Procedure: ABDOMEN/PELVIS WITHOUT CONT Noncontrast technique limits evaluation of the abdominal and pelvic viscera. Coronal and Sagittal reconstruction series were provided. One or more dose reduction techniques were used (e.g., Automated exposure control, adjustment of the mA and/or kV according to patient size, use of iterative reconstruction technique). RADIATION DOSE SUMMARY: CTDlvol: 19.1 mGy DLP: 975.87 mGycm COMPARISON: CT chest abdomen and pelvis June 03, 2023 FINDINGS: Lung bases: Clear. Liver: Unremarkable. Gallbladder: Unremarkable. No biliary dilation. Spleen: No splenomegaly. Foci of calcifications consistent with old granulomatous disease. Pancreas: None. Adrenals: Unremarkable. Kidneys: Bilateral simple kidney cysts with the largest measures 1.7 cm at the upper pole of the right kidney. No hydronephrosis. No obstructing ureteral stones or nephrolithiasis. However, hyperdense fluid within the collecting system. Further evaluation with ultrasound is recommended. Bladder: The bladder is distended. Reproductive Organs: Hysterectomy. Bowel: No bowel wall thickening. No bowel obstruction. Appendix: No evidence of acute appendicitis. Lymph nodes: No lymphadenopathy. Vasculature: Atherosclerotic calcifications. No aneurysm. Peritoneum / Retroperitoneum: Bones: No acute bony abnormalities. Limited study due to lack of IV and oral contrast. CT/Abdomen/Pelvis without Cont IMPRESSION: Bilateral simple kidney cysts with the largest measures 1.7 cm at the upper fabiano e of the right kidney. No hydronephrosis. No obstructing ureteral stones or nephrolithiasis. However, hyperdense fluid withi n the collecting system. Further evaluation with ultrasound is recommended. Reading Location: [facility]
[2025-07-31 03:31] VITALS: O2SAT 97
--- NOTE | 2025-07-31 03:31 | ED.RN ---
patients O2 83% on RA. RN enters patients room to assess. patient states she wears 3L NC at home all the time. RN asks patient why she was not wearing oxygen when EMS arrived. Patient states she was smoking a cigarette prior to EMS and forgot to put it on.
--- OUTSIDE RECORDS SUMMARY | 2025-07-31 03:54 | XMS RPT_ITS | CCD ---
Author Organization [facility] CliniSys[facility] Care Team Providers Care Sales Office Coordinator Name Role Phone JOSE RAMON, DONAL Unavailable Unavailable BURSLEY, CHRISTOPHER Unavailable Unavailable BURSLEY, CHRISTOPHER Unavailable Unavailable JOSE RAMON, DONAL Unavailable Unavailable BURSLEY, CHRISTOPHER Unavailable Unavailable JOSE RAMON, DONAL Unavailable Unavailable JOSE RAMON, DONAL Unavailable Unavailable BRIAN, CHRISTOPHER Unavailable Unavailable SHANE ALBRIGHTNETH E Unavailable Unavailable NANDA OLIVEIRA () Unavailable Unav ailable JOSE RAMON, DONAL E Unavailable Unavailable JOSE RAMON, DONAL E Unavailable Unavailable SELF, SELF Referring Unavailable NANDA OLIVEIRA Primary Care Unavailab Nanda Man MD Primary Care Provider Daniel Ford Unavailable [place], [place] Unavailable (Hist), [facility] Unavailable Unavailable Shaquille Finley Unavailable Soheila Bhakta MD Unavailable Unavailable Primary Care Provider Unavailabl Nanda Arias MD Primary Care Provider Daniel Ford Unavailable [phone] [place], [place] Unavailable (Hist), [facility] Unavailable Unavailable Shaquille Finley Unavailable Soheila Bhakta MD Unavailable Nanda Oliveira MD Primary Care Provider Daniel Ford Unavailable Wan, [place] Unavailable Shaquille Finley Unavailable Soheila Bhakta MD Unavailable [phone] Bhupendra Oliveira Primary Care Provider Dr. Bhupendra Oliveira Referring Provider MORGAN Yeboah Attending Provider Dr. Bhupendra Oliveira Primary Care Provider Dr. Bhupendra Oliveira Referring Provider MORGAN Yeboah Attending Provider Dr. Kodi Agee Emergency Provider Dr. James Cohn Admit Provider Dr. James Cohn Attending Provider Dr. James Cohn Other Provider Dr. Arlyn Leslie Other Provider Dr. Roger Yang Attending Provider Dr. Roger Yang Other Provider Dr. Michelle Gregg Attending Provider Dr. Michelle Gregg Other Provider Nanda Oliveira MD Primary Care Provider Daniel Ford Unavailable [phone] Wan, Bart S Unavailable (Hist), [facility] Unavailable Unavailable Shaquille Finley Unavailable Soheila Bhakta MD Unavailable Dr. Syed Jeronimo Attending Provider Dr. Bhupendra Oliveira Primary Care Provider Dr. Jose Armando Ramsey Attending Provider Dr. James Cohn Referring Provider Dr. Arlyn Leslie Referring Provider Dr. Bhupendra Oliveira Referring Provider MORGAN Yeboah Attending Provider MORGAN Yeboah Other Provider BRIAN ABRAHAM, TITUS Primary Care Physician ANUJ ABRAHAM, DR ARLYN Golden Attending Fouzia Man MD, [facility] Care Jenna LESLIE MD, DR ARLYN Golden Attending Fouzia Man MD, [facility] Care Jenna LESLIE MD, DR ARLYN Golden Attending Fouzia Man MD, [facility] Care Jenna Oliveira, Dr. Huizar Primary Care Provider [phone] Dr. Syed Jeronimo Attending Provider Dr. Arlyn Leslie Referring Provider Dr. Bhupendra Oliveira Referring Provider MORGAN Yeboah Attending Provider MORGAN Yeboah Other Provider Dr. Jose Armando Ramsey Attending Provider [facility] P[employer]ER [employer], PAPERHANGER [employer] PAINTER-Johana Queen Attending Provider Dr. Arlyn Leslie Admit Provider [phone] Dr. Arlyn Leslie Other Provider JORI Montoya Other Provider Dr. Yared Fernández Attending Provider Dr. Yared Fernández Other Provider Dr. Bhupendra Oliveira Primary Care Provider Dr. Syed Jeronimo Attending Provider Dr. Arlyn Leslie Referring Provider [phone] Bhupendra Oliveira Referring Provider MORGAN Yeboah Attending Provider MORGAN Yeboah Other Provider Dr. Jose Armando Ramsey Attending Provider Roof P[employer]ERHANGER AND PAINTER, PAPERHANGER AND PAINTER-C Zaid Queen Attending Provider Dr. Arlyn Leslie Admit Provider Dr. Arlyn Leslie Other Provider JORI Montoya Other Provider Dr. Yared Fernández Attending Provider Dr. Yared Fernández Other Provider Dr. Bhupendra Oliveira Primary Care Provider Dr. Arlyn Leslie Referring Provider Bart Blas S Unavailable Daniel Ford MD Unavailable Dr. Bhupendra Oliveira Primary Care Provider Dr. Maria Fernanda Moss Emergency Provider [phone] Yared Fernández Admit Provider Dr. Yared Fernández Other Provider Dr. Bart Blas Attending Provider Dr. Bart Blas Other Provider Dr. Yared Fernández Attending Provider Gil PAPERHANGER [employer] PAINTER, PAPERHANGER AND PAINTER-C Akiko Attending Provider Dr. Roger Yang Attending Provider Dr. Roger Yang Other Provider Shaquille Finley MD Unavailable Bart Blas MD Unavailable Dr. Bhupendra Oliveira Primary Care Provider [phone] Dr. Maria Fernanda Moss Emergency Provider Dr. Yared Fernández Admit Provider Dr. Yared Fernández Other Provider Dr. Bart Blas Attending Provider [phone] Bart Blas Other Provider Dr. Yared Fernández Attending Provider Gil PAPERHANGER AND PAINTER, IZABELA Wharton Attending Provider Dr. Roger Yang Attending Provider Dr. Roger Yang Other Provider Dr. Tarun Kennedy Attending Provider Dr. Bhupendra Oliveira Referring Provider Mirian MORA, PA Uma Puente Attending Provider Dr. Bhupendra Oliveira Primary Care Provider Dr. Tarun Kennedy Attending Provider Dr. Eleazar Brooks Emergency Provider [phone] Yvon Wilson Admit Provider Unavailabl e Wilson, Dr. Sanz Other Provider Unavailabl e Dr. Yvon Hogan Attending Provider Unavailable Edison, Dr. Sanz Other Provider Unavailable Dr. Jeff Lewis Attending Provider Dr. Reyna Champagne Referring Provider Dr. Syed Montanez Other Provider Dr. Bart Blas Attending Provider Dr. Yvon Hogan Referring Provider Unavailable Dr. Reyna Champagne Attending Provider Dr. Reyna Champagne Other Provider Dr. Bhupendra Oliveira Primary Care Provider [phone] Dr. Bhupendra Oliveira Primary Care Provider [phone] Dr. Bhupendra Oliveira Referring Provider Mirian MORA, PA Uma Puente Attending Provider Dr. Dylon Murrieta Chi Primary Care Provider Dr. Dylon Murrieta Chi Referring Provider Dr. Syed Jeronimo Attending Provider Dr. Benson Lewishsaan Other Provider Friend, Dr. Aguilar Attending Provider Dr. Dylon Murrieta Chi Primary Care Provider [phone] Lit, Dr. Dylon Turner Referring Provider Dr. Syed Jeronimo Attending Provider [phone] Friend, Dr. Aguilar Other Provider Nanda Oliveira MD Primary Care Provider Dr. James Cohn Attending Provider Lit ABRAHAM, Dr. Dylon Turner Primary Care Provider Lit ABRAHAM, Dr. Dylon Turner Attending Provider Lit ABRAHAM, Dr. Dylon Turner Referring Provider Wyatt PAPERHANGER AND PAINTER-CLizette Attending Provider Brian ABRAHAM, Dr. Huizar Referring Provider Wan ABRAHAM, Dr. Arriaga Attending Provider [phone] Naveen ABRAHAM, Dr. Da Silva Emergency Provider MAEGAN CHAPPELL Referring Unavailable MAEGAN CHAPPELL Attending Unavailable MAEGAN CHAPPELL Admitting Unavailable Dr. Dylon Murrieta MD, Chi Primary Care Provider Dr. Avinash Hodge MD Attending Provider Lit ABRAHAM, Dr. Dylon Turner Referring Provider Wyatt PAPERHANGER AND PAINTER-CLizette Attending Provider Wyatt PAPERHANGER AND PAINTER-CLizette Referring Provider Lit ABRAHAM, Dr. Dylon Turner Primary Care Provider [phone] Lit ABRAHAM, Dr. Dylon Turner Attending Provider [phone] SELF Referring Unavailable DEMETRIA CIFUENTES Attending Unavailable CHARLIE PETERSON Admitting Unavailable CHARLIE PETERSON Attending Unavailable CHARLIE PETERSON Primary Care Unavailable IRENE DENISE MD Admitting Unavailable IRENE DENISE MD Attending Unavailable IRENE DENISE MD Primary Care Unavailable LIT, DYLON CHI Consulting Unavailable LIT, DYLON CHI Referring Unavailable ORTEGA MACIEL MD Admitting Unavailable ORTEGA MACIEL MD Attending Unavailable ORTEGA MACIEL MD Primary Care Unavailable PROVIDER, UNKNOWN Consulting Unavailable PROVIDER, UNKNOWN Consulting Unavailable Lit ABRAHAM, Dr. Dylon Turner Primary Care Physician [phone] Wyatt MONIQUECLizette Attending Physician Dr. Dylon Murrieta MD, Chi Attending Physician Dr. Avinash Hodge MD Emergency Department Physici an Lit, Dylon Chi Attending Unavailable Lit, Dylon Chi Primary Care Unavailable Lit, Dylon Chi Primary Care Unavailable Lit, Dylon Chi Attending Unavailable Avinash Hodge Attending Unavailable Lit, Dylon Chi Primary Care Unavailable John Ford Attending Unavailable Lit, Dylon Chi Primary Care Unavailable Lit, Dylon Chi Attending Unavailable Lit, Dylon Chi Referring Unavailable Lit, Dylon Chi Primary Care Unavailable Lit, Dylon Chi Primary Care Unavailable Lizette Schneider Attending Unavailable Lizette Schneider Referring Unavailable Roof Zaid MORRIS Attending Unavailable Lit, Dylon Chi Referring Unavailable Lit, Dylon Chi Primary Care Unavailable WyattLizette cox Attending Unavailable Lit, Dylon Chi Referring Unavailable Lit, Dylon Chi Primary Care Unavailable Lit, Dylon Chi Primary Care Unavailable Bart Blas Attending Unavailable Bhupendra Oliveira Referring Unavailable Lit, Dylon Chi Primary Care Unavailable Lizette Schneider Attending Unavailable Lit, Dylon Chi Referring Unavailable Lit, Dylon Chi Primary Care Unavailable Lizette Schneider Attending Unavailable Lit, Dylon Chi Referring Unavailable Lit, Dylon Chi Primary Care Unavailable Sibilia Syed V Attending Unavailable Sibilia Syed V Referring Unavailable Lit, Dylon Chi Primary Care Unavailable Avinash Hodge Attending Unavailable Lizette Schneider Attending Unavailable WyattLizette Referring Unavailable Lit, Dylon Chi Primary Care Unavailable Allergies Allergy Classification Reported Allergen(s) Allergy Type Date of Onset Reaction(s) Facility (20 sources) Adhesive Tape; Translations: [ADHESIVE TAPE (ROSINS)] Propensity to adverse reactions (disorder) 04-04-20 15 Intolerance [facility] Repository (20 sources) Cat; Translations: [CATS] Propensity to adverse reactions (disorder) 04-10-20 16 Other: See Comments [facility] Repository (20 sources) cephalexin; Translations: [CEPHALEXIN] Drug Allergy 07-10-20 16 Hives [facility] Repository (20 sources) ciprofloxacin; Translations: [CIPROFLOXACIN] Drug Allergy 12-11-19 12 Other: See Comments [facility] Repository (20 sources) Dog; Translations: [DOGS] Propensity to adverse reactions (disorder) 04-10-20 16 Other: See Comments [facility] Repository (20 sources) metoclopramide; Translations: [METOCLOPRAMIDE HCL] Drug Allergy 03-04-20 17 Other: See Comments [facility] Repository (20 sources) niacin; Translations: [NIACIN] Drug Allergy 04-22-20 07 Unknown [facility] Repository (20 sources) ondansetron; Translations: [ONDANSETRON HCL (PF)] Drug Allergy 02-04-20 18 Itching [facility] Repository (20 sources) orphenadrine; Translations: [ORPHENADRINE] Drug Allergy 04-10-20 16 Unknown [facility] Repository (2 sources) penicillin; Translations: [PENICILLIN G] Drug Allergy 10-18-19 05 [facility] Repository (2 sources) Penicillins; Translations: [PENICILLINS] Propensity to adverse reactions (disorder) 04-04-20 15 AOF [facility] Repository (2 sources) NIACIN PREPARATIONS; Translations: [NIACIN PREPARATIONS] Propensity to adverse reactions (disorder) 10-18-19 05 [facility] Repository (20 sources) XANTHINES; Translations: [XANTHINES] Propensity to adverse reactions (disorder) 10-18-19 05 Unknown [facility] Repository (20 sources) Latex Allergy to substance 06-05-[address] [facility] (12 sources) Ondansetron Drug Allergy 06-05-[address] [facility] (20 sources) Orphenadrine; Translations: [orphenadrine citrate] Drug Allergy 06-05-[address] [facility] (20 sources) ranolazine Drug Allergy 06-05-[address] [facility] (2 sources) medical tape Propensity to adverse reactions 06-05-[address] [facility] Work Phone: (20 sources) Capsaicin; Translations: [CAPSAICIN] Drug Allergy 03-02-20 18 Itching [facility] (20 sources) Adhesive Tape; Translations: [adhesive tape] Propensity to adverse reactions 06-12-[address] [facility] Comment on above: MEDICAL TAPE - BLIST ERS BANDAIDS (1 source) Adhesive Tape Allergy to substance Blisters [facility] (1 source) Aspirin / Caffeine / Orphenadrine; Translations: [ASA/caffeine/orph enadrine] Drug Allergy 04-22-20 07 out of body [facility] (1 source) Penicillin; Translations: [penicillin] Drug Allergy 04-22-20 07 hives [facility] (15 sources) Metoclopramide Drug Allergy 06-03-[address] [facility] (1 source) Adhesive Tape; Translations: [TAPE ALLERGY] Propensity to adverse reactions (disorder) 12-06-19 25 [facility] Repository (1 source) Cat; Translations: [CAT ALLERGY] Propensity to adverse reactions (disorder) 12-06-19 25 [facility] Repository (1 source) Aspirin / Caffeine / Orphenadrine Drug Allergy [facility] Repository (1 source) Ciprofloxacin Drug Allergy [facility] Repository (1 source) Latex Drug allergy (disorder) 06-19-[address] [facility] Repository (1 source) Metoclopramide Drug Allergy 06-19-[address] [facility] Repository (1 source) ranolazine Drug Allergy 06-19-[address] [facility] Repository Medications Current Medications Medication Drug Class(es) Dates Sig (Normalized) Sig (Original) [id number] 200 actuat albuterol 0.09 mg/actuat metered dose inhaler (20 sources) beta2-Adrenergic Agonist Start: 06-25-2023 take 2 puff(s) by inhalation every four hours as needed for wheezing albuterol HFA (PROAIR HFA) 90 mcg/actuation inhaler Inhale 2 Puffs as instructed every 4 hours as needed for wheezing/shortnes s of breath. 18 g 2 06/25/2023 Active Start: 12-12-2022 Start: 12-12-2022 Albuterol Sulf ate Active 2 PUFF INHALATION NEEDED December 12, 2022 12:00am Start: 12-12-2022 Start: 11-09-2021 End: 03-20-2023 take 2 puff(s) by inhalation every four hours as needed for wheezing albuterol HFA (PROAIR HFA) 90 mcg/actuation inhaler Inhale 2 Puffs as instructed every 4 hours as needed for wheezing/shortness of breath. 18 g 2 12/27/2022 03/20/2023 Discontinued Start: 02-14-2015 End: 02-20-2015 take 2.5 mg by inhalation every two hours as needed Albuterol Sulfate 2.5 MG/3 ML Vial.Neb. Discontinued 2.5 mg INHALATION EVERY 2 HOURS NEEDED as needed for Shortness of breath 1 0 February 14, 2015 12:00am February 20, 2015 10:03am Comment on above: Inhale 2 Puffs as in structed every 4 hours as needed for wheezing/shortness of breath. albuterol MDI (90 mcg/inh) CFC free inhalation aerosol (1 source) Start: 2015 take 2 puff(s) by inhalation every four hours albuterol MDI (90 mcg/inh) CFC free inhalation aerosol 2 puff(s), Inhalation, q4h, # 8 g, 0 Refill(s) Start Date: 03/10/16 Status: Ordered alendronic acid 70 mg oral tablet (20 sources) Bisphosphonate Start: 2021 End: 2022 Comment on above: Take 1 tablet by shlomo one time a week. Take with a full glass of water, on an empty stomach; do NOT lie down for 30minutes. amiodarone hydrochloride 200 mg oral tablet (1 source) Antiarrhythmic Start: 2024 take 1 tablet by mouth once daily apixaban 5 mg oral tablet (20 sources) Factor Xa Inhibitor Start: 2022 End: 2022 take 2 tablets by mouth twice daily ELIQUIS 2.5 mg tab(s) Take 5 mg by mouth two times a day. 0 08/12/2023 08/13/2023 Discontinued Start: 06-05-2023 End: 06-09-2025 take 1 tablet by mouth twice daily Start: 05-17-2018 End: 06-05-2023 take 2 tablets by mouth twice daily Apixaban 2.5 mg tablet Discontinued 5 mg PO TWICE A DAY November 12, 2022 1:09pm November 12, 2022 1:10pm Blood thinner Start: 05-17-2018 End: 09-16-2023 take 1 tablet by mouth twice daily Apixaban 2.5 mg tablet Discontinued 2.5 mg PO TWICE A DAY November 12, 2022 1:10pm June 05, 2023 10:40am Blood thinner Start: 05-17-2018 End: 11-12-2022 take 5 mg by mouth twice daily Apixaban Discontinued 5 MG PO TWICE A DAY November 12, 2022 1:09pm November 12, 2022 1:10pm Comment on above: Take 1 tablet by shlomo th twice daily. Take 5 mg by mouth t wo times a day. ascorbic acid 500 mg oral tablet (20 sources) Vitamin C Start: 05-17-2018 End: 07-29-2024 take 1 tablet by mouth once daily Comment on above: Take 1 tablet by shlomo th once daily. Aspir 81 (1 source) Start: 10-13-2009 take 81 mg by mouth once daily Aspir 81 81 mg, PO, Daily Start Date: 10/13/09 Status: Ordered atenolol 50 mg oral tablet (1 source) beta-Adrenergic Sudhakar Start: 10-12-2009 take 50 mg by mouth twice daily Tenormin 50 mg, PO, BID Start Date: 10/12/09 Status: Ordered atorvastatin 40 mg oral tablet (20 sources) HMG-CoA Reductase Inhibitor Start: 02-03-2018 End: 01-26-2024 take 1 tablet by mouth at bedtime Comment on above: Take 1 tablet by shlomo th once daily. BIPAP (20 sources) Start: 11-23-2021 BIPAP Bilevel PAP 16/12 cmH2O with 2 LPM oxygen bleed in, mask, tubing, filters, heated humidity, lifetime supplies. Dx: G47.33, G47.39. 1 Each 11/23/2021 Active Start: 11-23-2021 BIPAP Bilevel PAP 16/12 cmH2O with 2 LPM oxygen bleed in, mask, tubing, filters, heated humidity, lifetime supplies. Dx: G47.33, G47.39. 1 Each 0 11/23/2021 Active Comment on above: Bilevel PAP 16/12 cm H2O with 2 LPM oxygen bleed in, mask, tubing, filters, heated humidity, lifetime supplies. Dx: G47.33, G47.39. Blood-Glucose Meter (ONETOUCH ULTRA2) monitoring kit (20 sources) Start: 6 Blood-Glucose Meter (ONETOUCH ULTRA2) monitoring kit UAD to test blood sugar 1 Each 0 08/20/2016 Active Comment on above: UAD to test blood herrera gar busPIRone hydrochloride 10 mg oral tablet (20 sources) Start: take 1 tablet by mouth once in the morning, then take 1.5 tablets by mouth in the evening Start: 06-03-2023 take 1 tablet by shlomo th once in the morning, then take 1.5 tablets by mouth in the evening Buspirone Active 15 MG PO AT BEDTIME June 03, 2023 12:00am PER PHARMACY PT TAKES 1 TAB (10 MG) IN THE MORNING AND AFTERNOON AND TAKES 1.5 TAB (15 MG) IN THE EVENING Start: 08-11-2019 End: 04-23-2023 take 1 tablet by mouth once in the morning, then take 1.5 tablets by mouth in the evening Buspirone 10 mg tablet Active 15 mg PO AT BEDTIME June 03, 2023 12:00am PER PHARMACY PT TAKES 1 TAB (10 MG) IN THE MORNING AND AFTERNOON AND TAKES 1.5 TAB (15 MG) IN THE EVENING Start: 08-11-2019 End: 06-12-2022 take 1 tablet by mouth three times daily Buspirone 10 mg tablet Discontinued 10 mg PO THREE TIMES A DAY August 11, 2019 1:00am June 12, 2022 1:50pm depression Start: 08-11-2019 End: 04-23-2023 busPIRone (BUSPAR) 10 mg tab let Indications: Anxiety with depression Take one tablet in the AM, one tablet in the afternoon and 1.5 tablets in the evening 105 tablet 1 04/23/2023 Active Start: 09-02-2018 End: 06-08-2019 take 7.5 mg by mouth twice daily Buspirone 30 MG table t Discontinued 7.5 mg PO TWICE A DAY September 02, 2018 1:00am June 08, 2019 2:20pm Anxiety Start: 09-02-2018 End: 06-08-2019 take 7.5 mg by mouth twice daily Buspirone Discontinue d 7.5 MG PO TWICE A DAY September 02, 2018 1:00am June 08, 2019 2:20pm Comment on above: Take one tablet in t he AM, one tablet in the afternoon and 1.5 tablets in the evening cholecalciferol 0.05 mg oral capsule (20 sources) Vitamin D Start: End: 4 take 1 capsule by mouth once daily Cholecalciferol, Vitamin D3, (VITAMIN D-3) 50 mcg (2,000 unit) cap Take 1 capsule by mouth once daily. 30 capsule 09/09/2023 Active Start: 08-30-2019 End: 03-06-2020 take 1 tablet by mouth once daily Cholecalciferol (Vitamin D3) 1,000 UNIT tablet Discontinued 1000 U PO DAILY August 30, 2019 1:00am March 06, 2020 12:07pm supplement Comment on above: [facility] capsule by [facility]. clotrimazole 10 mg/ml topical cream (1 source) Azole Antifungal Start: 05-01-2022 End: 05-15-2022 clotrimazole (LOTRIMIN, CLOTRIM) 1 % cream Indications: Tinea pedis of both feet Apply to affected area twice daily for 14 days. 28 g 0 05/01/2022 05/15/2022 Active Comment on above: Apply to affected ar ea twice daily for 14 days. COMPOUNDED PRESCRIPTION (20 sources) Start: 04-29-2019 COMPOUNDED PRESCRIPTION Indications: PARESH treated with BiPAP , Chronic respiratory failure with hypercapnia (HCC) , Chronic obstructive pulmonary disease, unspecified COPD type (HCC) , Congestive heart failure, unspecified HF chronicity, unspecified heart failure type (HCC) Pulse oximetry to be used PRN for SOB for COPD DX:J96.12 1 Device 04/29/2019 Active Start: 04-29-2019 COMPOUNDED PRE SCRIPTION Indications: PARESH treated with BiPAP , Chronic respiratory failure with hypercapnia (HCC) , Chronic obstructive pulmonary disease, unspecified COPD type (HCC) , Congestive heart failure, unspecified HF chronicity, unspecified heart failure type (HCC) Pulse oximetry to be used PRN for SOB for COPD DX:J96.12 1 Device 0 04/29/2019 Active Start: 01-22-2018 COMPOUNDED PRE SCRIPTION Please fit for BiPAP mask. 1 Each 01/22/2018 Active Start: 01-22-2018 COMPOUNDED PRE SCRIPTION Please fit for BiPAP mask. 1 Each 0 01/22/2018 Active Start: 11-28-2017 COMPOUNDED PRE SCRIPTION Indications: Chronic obstructive pulmonary disease, unspecified COPD type (HCC) OCD Titration for portable oxygen concentrator Oxygen Flow Rate between 2-6 liters. To keep oxygen saturation at or above 92%. 1 Each 11/28/2017 Active Start: 11-28-2017 COMPOUNDED PRE SCRIPTION Indications: Chronic obstructive pulmonary disease, unspecified COPD type (HCC) OCD Titration for portable oxygen concentrator Oxygen Flow Rate between 2-6 liters. To keep oxygen saturation at or above 92%. 1 Each 0 11/28/2017 Active Start: 12-27-2016 COMPOUNDED PRE SCRIPTION Indications: Type 2 diabetes mellitus with diabetic neuropathy, with long-term current use of insulin ([facility]) Evaluation for diabetic shoes and inserts Dx: E11.65, Z79.4 1 Each 12/27/2016 Active Start: 12-27-2016 COMPOUNDED PRE SCRIPTION Indications: Type 2 diabetes mellitus with diabetic neuropathy, with long-term current use of insulin ([facility]) Evaluation for diabetic shoes and inserts Dx: E11.65, Z79.4 1 Each 0 12/27/2016 Active Comment on above: Evaluation for diabe tic shoes and inserts Dx: E11.65, Z79.4 OCD Titration for po rtable oxygen concentrator Oxygen Flow Rate between 2-6 liters. To keep oxygen saturation at or above 92%. Please fit for BiPAP mask. Pulse oximetry to be used PRN for SOB for COPD DX:J96.12 cyclobenzaprine hydrochloride 10 mg oral tablet (20 sources) Muscle Relaxant Start: 022 take 1 tablet by mouth every twelve hours as needed cyclobenzaprine (FLEXERIL) 10 mg tablet Take 1 tablet by mouth twice daily as needed for muscle spasm. 60 tablet 12/27/2021 Active Start: 12-01-2019 End: 03-06-2020 take 1 tablet by mouth twice daily Cyclobenzaprine 10 mg tablet Discontinued 10 mg PO TWICE A DAY December 01, 2019 12:00am March 06, 2020 12:07pm Comment on above: Take 1 tablet by shlomo twice daily as needed for muscle spasm. cycloSPORINE 0.9 mg/ml ophthalmic solution (20 sources) Calcineurin Inhibitor Immunosuppressant Start: 023 cycloSPORINE (CEQUA) 0.09 % dropperette Use 1 Drop in both eyes every 12 hours. 02/28/2023 Active Comment on above: Use 1 Drop in both e yes every 12 hours. docusate sodium 50 mg / sennosides, nursing home 8.6 mg oral tablet (3 sources) Start: 022 take 2 tablets by mouth twice daily Sennosides-Docusate Sodium (Stool Softener-Stimulant Laxat) 8.6-50 mg Tablet Active 2 TABLET PO TWICE A DAY 0 August 08, 2022 12:00am DULoxetine 60 mg delayed release oral capsule (20 sources) Serotonin and Norepinephrine Reuptake Inhibitor Start: 018 End: 024 take 1 capsule by mouth once daily Comment on above: Take 1 capsule by [facility] daily. Vytorin (1 source) HMG-CoA Reductase Inhibitor, Dietary Cholesterol Absorption Inhibitor Start: 010 take 0.125 mg by mouth once daily Vytorin 10/80 mg po daily Start Date: 10/12/09 Status: Ordered Facial Mask misc (20 sources) Start: Facial Mask misc 1 Device once daily. Oxygen mask to be worn daily for history of hypoxia. 1 Each 09/04/2020 Active Start: 09-04-2020 Facial Mask mi sc 1 Device once daily. Oxygen mask to be worn daily for history of hypoxia. 1 Each 0 09/04/2020 Active Comment on above: 1 Device once daily. Oxygen mask to be worn daily for history of hypoxia. famotidine 20 mg oral tablet (16 sources) Histamine-2 Receptor Antagonist Start: 08-12-2023 famotidine (PEPCID) 20 mg tablet 08/12/2023 Active Start: 08-12-2023 flash glucose scanning reade r (FREESTYLE KIRA 14 DAY READER) misc (20 sources) Start: 11-26-2018 flash glucose scanning reader (FREESTYLE KIRA 14 DAY READER) misc Indications: Type 2 diabetes mellitus treated with insulin (HCC) Use to check blood sugars 4-5 times per day Dx: Type 2 diabetes mellitus treated with insulin E11.9 1 Each 11/26/2018 Active Start: 11-26-2018 flash glucose scanning reader (FREESTYLE KIRA 14 DAY READER) [facility] [place] Indications: Type 2 diabetes mellitus treated with insulin (HCC) Use to check blood sugars 4-5 times per day Dx: Type 2 diabetes mellitus treated with insulin E11.9 1 Each 0 11/26/2018 Active Comment on above: Use to check blood s ugars 4-5 times per day Dx: Type 2 diabetes mellitus treated with insulin E11.9 flash glucose sensor (FREESTYLE KIRA 14 DAY SENSOR) kit (20 sources) Start: 11-26-2018 flash glucose sensor (FREESTYLE KIRA 14 DAY SENSOR) kit Indications: Type 2 diabetes mellitus treated with insulin (HCC) Use to check blood sugars 4-5 times per day. Dx: Type 2 diabetes mellitus treated with insulin E11.9 2 Kit 11 11/26/2018 Active Comment on above: Use to check blood s ugars 4-5 times per day. Dx: Type 2 diabetes mellitus treated with insulin E11.9 fluorometholone 1 mg/ml ophthalmic suspension (20 sources) Corticosteroid fluorometholone (FML LIQUID FILM) 0.1 % ophthalmic suspension 1 Drop every 4 hours. Active Comment on above: 1 Drop every 4 hours . Fipurrkopbc-Imfvdwxnp-Jve anter [Fluticasone Fur. 100 Mcg-Umeclid 62.5 Mcg-Vilant 25 Mcg Inhalat.Powder] (20 sources) Anticholinergic, Corticosteroid, beta2-Adrenergic Agonist Start: 06-19-2025 Start: 03-03-2024 End: 03-03-2024 Fpbguxunofw-Xobwqcsoe-Mqooza er (Trelegy Ellipta) 100-62.5-25 mcg blister with device Discontinued 1 NMA INHALATION DAILY 1 0 March 03, 2024 3:18pm March 03, 2024 3:19pm Start: 03-03-2024 End: 03-03-2024 Pzfyaobkuro-Xuqowkckm-Tghjuy er (Trelegy Ellipta) 100-62.5-25 mcg blister with device Discontinued 1 NMA INHALATION DAILY 1 March 03, 2024 3:18pm March 03, 2024 3:19pm Start: 03-03-2024 End: 12-04-2024 Pgzxanlqapd-Yvrhcuinl-Xrkslq er (Trelegy Ellipta) 100-62.5-25 mcg blister with device Discontinued 1 NMA INHALATION DAILY 60 0 March 03, 2024 12:00am December 04, 2024 10:01pm Start: 03-03-2024 End: 12-04-2024 Sisvtakbbuu-Ipmozdqqv-Lqoobq er (Trelegy Ellipta) 100-62.5-25 mcg blister with device Discontinued 1 NMA INHALATION DAILY 60 March 03, 2024 12:00am December 04, 2024 10:01pm Start: 01-19-2024 End: 03-03-2024 Qdfpsxxwlym-Wjsmiwcaf-Khhwti er (Trelegy Ellipta) 100-62.5-25 mcg blister with device Discontinued 1 NMA INHALATION DAILY January 19, 2024 12:00am March 03, 2024 3:19pm Start: 01-19-2024 Fluticasone-Um eclidin-Vilanter (Trelegy Ellipta) 100-62.5-25 mcg blister with device Active 1 INH INHALATION DAILY January 19, 2024 12:00am take 1 puff(s) by inhalation once daily ycjwtpjoavw-eaactpqao-edqpckrb (TRELEGY ELLIPTA) 100-62.5-25 mcg inhalation powder Inhale 1 Puff as instructed once daily. Active furosemide 20 mg oral tablet (20 sources) Loop Diuretic Start: 10-25-2020 End: 01-26-2024 take 1 tablet by mouth twice daily furosemide (LASIX) 20 mg tablet Indications: Congestive heart failure, unspecified HF chronicity, unspecified heart failure type (HCC) Take 1 tablet by mouth two times a day. 180 tablet 1 07/30/2023 Active Start: 09-02-2018 End: 06-08-2019 take 1 tablet by mouth twice daily Furosemide 40 MG tablet Discontinued 40 mg PO TWICE A DAY September 02, 2018 1:00am June 08, 2019 2:20pm Diuretic Start: 08-29-2016 End: 09-02-2016 take 1 tablet by mouth once daily Furosemide 40 MG tablet Discontinued 40 mg PO DAILY 60 0 August 29, 2016 1:08pm September 02, 2016 8:08pm Start: 08-27-2016 End: 08-29-2016 Furosemide 40 MG tablet Disc ontinued 60 mg PO DAILY August 27, 2016 11:51am August 29, 2016 1:08pm Start: 08-27-2016 End: 08-29-2016 take 60 mg by mouth once daily Furosemide Discontinued 60 MG PO DAILY August 27, 2016 11:51am August 29, 2016 1:08pm Start: 04-02-2016 End: 08-27-2016 take 1 tablet by mouth once daily Furosemide 40 MG tablet Discontinued 40 mg PO DAILY 0 April 02, 2016 12:00am August 27, 2016 11:51am Start: 04-02-2016 End: 09-02-2016 Start: 02-28-2016 End: 04-02-2016 take 1 tablet by mouth at bedtime Furosemide 20 MG tablet Discontinued 20 mg PO AT BEDTIME February 28, 2016 12:00am April 02, 2016 9:36am Comment on above: Take 1 tablet by shlomo th twice daily. Take 1 tablet by shlomo th two times a day. glucose 4000 mg chewable tablet (20 sources) Start: 08-27-2018 glucose 4 gram chewable tablet TAKE 4 TABLETS BY MOUTH NEEDED FOR LOW BLOOD SUGAR. 10 tablet 1 08/27/2018 Active Comment on above: TAKE 4 TABLETS BY [facility] NEEDED FOR LOW BLOOD SUGAR. Incontinence Pad, Liner, Disp (BLADDER CONTROL PADS EX ABSORB) pads (20 sources) Start: 02-06-2023 Incontinence Pad, Liner, Disp (BLADDER CONTROL PADS EX ABSORB) pads 1 Device as needed. 72 Each 3 02/06/2023 Active Comment on above: 1 Device as needed. Incontinence Pad, Liner, Disp pads (20 sources) Start: 10-24-2016 Incontinence Pad, Liner, Disp pads 1 Device as needed (urinary incontinence). Prevail incontinence pads. Dx: urinary incontinence. Size: small 200 Each 11 10/24/2016 Active Comment on above: 1 Device as needed ( urinary incontinence). Prevail incontinence pads. Dx: urinary incontinence. Size: small 3 ml insulin glargine 100 unt/ml pen injector (20 sources) Insulin Analog Start: 09-25-2023 Start: 08-20-2023 End: 11-25-2023 Insulin Glargine (Lantus Elaine ostar U-100 Insulin) 100 unit/mL (3 mL) insulin pen Discontinued 45 U SC TWICE A DAY 15 0 August 20, 2023 4:47pm March 5th, 2024 10:20am DM Start: 06-13-2023 insulin glargi ne (LANTUS SOLOSTAR U-100 INSULIN) 100 unit/mL (3 mL) Indications: Type 2 diabetes mellitus with hyperglycemia, with long-term current use of insulin (HCC) Inject 60 units subcutaneously twice daily 15 Each 5 06/13/2023 Active Start: 05-13-2023 End: 06-03-2023 insulin glargine (LANTUS ELAINE OSTAR U-100 INSULIN) 100 unit/mL (3 mL) Indications: Type 2 diabetes mellitus with hyperglycemia, with long-term current use of insulin (HCC) Inject 56 units subcutaneously twice daily 15 Each 5 06/03/2023 Active Start: 03-17-2023 End: 05-13-2023 insulin glargine (LANTUS ELAINE OSTAR U-100 INSULIN) 100 unit/mL (3 mL) Indications: Type 2 diabetes mellitus with diabetic neuropathy, with long-term current use of insulin ([facility]) Inject 54 units subcutaneously twice daily 15 Each 5 03/17/2023 05/13/2023 Discontinued Start: 02-28-2023 End: 03-17-2023 insulin glargine (LANTUS ELAINE OSTAR U-100 INSULIN) 100 unit/mL (3 mL) Indications: Type 2 diabetes mellitus with diabetic neuropathy, with long-term current use of insulin (HCC) Inject 48 units subcutaneously twice daily 15 Each 5 02/28/2023 03/17/2023 Discontinued Start: 02-28-2023 End: 03-17-2023 insulin glargine (LANTUS ELAINE OSTAR U-100 INSULIN) 100 unit/mL (3 mL) Indications: Type 2 diabetes mellitus with diabetic neuropathy, with long-term current use of insulin (HCC) Inject 48 units subcutaneously twice daily 15 Each 5 02/28/2023 03/17/2023 Discontinued Start: 07-01-2022 insulin glargi ne (LANTUS SOLOSTAR U-100 INSULIN) 100 unit/mL (3 mL) Indications: Type 2 diabetes mellitus with diabetic neuropathy, with long-term current use of insulin ([facility]) Inject 42 units subcutaneously twice daily 15 Each 5 07/01/2022 Active Start: 06-12-2022 End: 08-20-2023 Insulin Glargine (Lantus Elaine ostar U-100 Insulin) 100 unit/mL (3 mL) insulin pen Discontinued 60 U SC TWICE A DAY June 12, 2022 1:47pm August 20, 2023 4:47pm DM Start: 06-12-2022 Insulin Glargi ne (Lantus Solostar U-100 Insulin) 100 unit/mL (3 mL) insulin pen Active 56 UNIT SC TWICE A DAY June 12, 2022 1:47pm Start: 06-12-2022 Insulin Glargi ne (Lantus Solostar U-100 Insulin) 100 unit/mL (3 mL) insulin pen Active 54 UNIT SC TWICE A DAY June 12, 2022 1:47pm Start: 06-12-2022 Insulin Glargi ne (Lantus Solostar U-100 Insulin) 100 unit/mL (3 mL) insulin pen Active 42 UNIT SC TWICE A DAY June 12, 2022 1:47pm Start: 12-13-2020 End: 06-12-2022 Insulin Glargine 100 UNITS/M L insulin pen Discontinued 34 U SC TWICE A DAY December 13, 2020 5:39pm June 12, 2022 1:50pm DM Start: 12-13-2020 End: 06-12-2022 Insulin Glargine Discontinue d 34 UNITS SC TWICE A DAY December 13, 2020 5:39pm June 12, 2022 1:50pm Start: 12-13-2020 Insulin Glargi ne Active 34 UNITS SC TWICE A DAY December 13, 2020 5:39pm Start: 10-26-2020 End: 12-13-2020 Insulin Glargine 100 UNITS/M L insulin pen Discontinued 15 U SC TWICE A DAY 0 October 26, 2020 1:00am December 13, 2020 5:39pm Start: 10-26-2020 End: 12-13-2020 Insulin Glargine Discontinue d 15 UNITS SC TWICE A DAY October 26, 2020 1:00am December 13, 2020 5:39pm Start: 12-01-2019 End: 10-26-2020 Insulin Glargine (Lantus Elaine ostar U-100 Insulin) 100 unit/mL (3 mL) insulin pen Discontinued 36 U SC TWICE A DAY December 01, 2019 3:49pm October 26, 2020 4:02pm dm Start: 08-11-2019 End: 12-01-2019 Insulin Glargine (Lantus Elaine ostar U-100 Insulin) 100 unit/mL (3 mL) insulin pen Discontinued 44 U SC TWICE A DAY August 11, 2019 1:00am December 01, 2019 3:50pm dm Start: 08-11-2019 End: 02-28-2023 insulin glargine (LANTUS ELAINE OSTAR U-100 INSULIN) 100 unit/mL (3 mL) Indications: Type 2 diabetes mellitus with diabetic neuropathy, with long-term current use of insulin (HCC) Inject 42 units subcutaneously twice daily 15 Each 5 07/01/2022 02/28/2023 Discontinued Start: 08-11-2019 End: 11-25-2023 Start: 08-11-2019 End: 06-12-2022 Start: 08-11-2019 End: 08-20-2023 Start: 08-11-2019 End: 06-12-2022 insulin glargine (LANTUS ELAINE OSTAR U-100 INSULIN) 100 unit/mL (3 mL) Indications: Type 2 diabetes mellitus with diabetic neuropathy, with long-term current use of insulin (HCC) Inject 38 units subcutaneously twice daily 15 Pen 5 03/01/2022 03/29/2022 Discontinued Start: 09-10-2018 End: 06-08-2019 inject 54 [IU] by subcutaneous injection twice daily Insulin Glargine 100 UNIT/ML solution Discontinued 54 U SQ TWICE A DAY September 10, 2018 1:00am June 08, 2019 2:20pm blood sugar control Start: 05-18-2018 End: 07-22-2018 Insulin Glargine (Lantus Elaine ostar U-100 Insulin) 100 UNITS/ML Pen Discontinued 26 U SC TWICE A DAY 0 May 18, 2018 12:00am July 22, 2018 6:50pm Start: 05-18-2018 End: 07-22-2018 Start: 02-03-2018 End: 05-18-2018 inject 56 [IU] by subcutaneous injection twice daily Insulin Glargine (Lantus U-100 Insulin) 100 UNIT/ML Ml Discontinued 56 U SQ TWICE A DAY February 03, 2018 12:00am May 18, 2018 4:50pm BLOOD SUGAR Start: 02-03-2018 End: 05-18-2018 Start: 01-01-2017 End: 10-17-2017 Insulin Glargine (Lantus Elaine ostar U-100 Insulin) 100 UNITS/ML Pen Discontinued 62 U SQ TWICE A DAY January 01, 2017 12:00am October 17, 2017 11:08am Start: 01-01-2017 End: 10-17-2017 Comment on above: Inject 34 units subc utaneously twice daily Inject 38 units subc utaneously twice daily Inject 42 units subc utaneously twice daily Inject 54 units subc utaneously twice daily Inject 48 units subc utaneously twice daily Inject 56 units subc utaneously twice daily Inject 60 units subc utaneously twice daily Inject 58 units subc utaneously twice daily Novolin N (1 source) Start: 10-12-2009 NovoLIN N 0, 0, See Instructions, 0, 32 units n AM, 18 units in PM, and 12 units at bedtime Start Date: 10/12/09 Status: Ordered 3 ml insulin lispro 100 unt/ml pen injector (20 sources) Insulin Analog Start: 02-28-2023 End: 05-06-2023 insulin lispro (HUMALOG KWIKPEN INSULIN) 200 unit/mL (3 mL) injection Indications: Type 2 diabetes mellitus with diabetic neuropathy, with long-term current use of insulin (HCC) , Type 2 diabetes mellitus with hyperglycemia, with long-term current use of insulin (HCC) Inject 14units with breakfast, 14 units with lunch, and 24 units with dinner 18 mL 5 05/06/2023 Active Start: 06-12-2022 Insulin Lispro Active 26 UNIT SC WITH DINNER June 12, 2022 12:48pm Start: 06-12-2022 Insulin Lispro Active 16 UNIT SC WITH BREAKFAST June 12, 2022 1:47pm Start: 02-08-2021 End: 02-06-2023 inject 14 [IU] by subcutaneous injection at breakfast, then inject 16 [IU] by subcutaneous injection at lunch, then inject 24 [IU] by subcutaneous injection at dinner insulin lispro (HUMALOG KWIKPEN INSULIN) 200 unit/mL (3 mL) injection Indications: Type 2 diabetes mellitus with hyperglycemia, with long-term current use of insulin ([facility]) Inject subcutaneously 14 units with breakfast, 16 units with lunch, and 24 units with dinner 18 mL 5 03/01/2022 02/06/2023 Discontinued Start: 12-13-2020 End: 08-20-2023 Insulin Lispro 100 unit/mL i nsulin pen Discontinued 14 U SC WITH LUNCH June 12, 2022 1:48pm August 20, 2023 4:47pm DIABETES Start: 12-13-2020 End: 08-20-2023 Insulin Lispro 100 unit/mL i nsulin pen Discontinued 24 U SC WITH DINNER June 12, 2022 1:48pm August 20, 2023 4:47pm DIABETES Start: 12-13-2020 End: 06-12-2022 Insulin Lispro 100 UNIT/ML i nsulin pen Discontinued 20 U SC WITH LUNCH December 13, 2020 5:39pm June 12, 2022 1:50pm Start: 10-26-2020 End: 12-13-2020 Insulin Lispro 100 UNIT/ML i nsulin pen Discontinued 6 U SC WITH BREAKFAST 0 October 26, 2020 1:00am December 13, 2020 5:39pm Start: 10-26-2020 End: 12-13-2020 Insulin Lispro 100 UNIT/ML i nsulin pen Discontinued 8 U SC WITH LUNCH 0 October 26, 2020 1:00am December 13, 2020 5:39pm Start: 10-26-2020 End: 12-13-2020 Insulin Lispro 100 UNIT/ML i nsulin pen Discontinued 10 U SC WITH DINNER 0 October 26, 2020 1:00am December 13, 2020 5:39pm Start: 02-03-2018 End: 10-26-2020 inject 20 [IU] by subcutaneous injection at lunch Insulin Lispro 100 UNIT/ML insulin pen Discontinued 20 U SQ WITH LUNCH February 03, 2018 12:00am October 26, 2020 4:02pm BLOOD SUGAR Start: 02-03-2018 End: 10-26-2020 inject 24 [IU] by subcutaneous injection at dinner Insulin Lispro 100 UNIT/ML insulin pen Discontinued 24 U SQ WITH DINNER February 03, 2018 12:00am October 26, 2020 4:02pm BLOOD SUGAR Start: 02-03-2018 End: 10-26-2020 inject 14 [IU] by subcutaneous injection at breakfast Insulin Lispro 100 UNIT/ML cartridge Discontinued 14 U SQ WITH BREAKFAST February 03, 2018 12:00am October 26, 2020 4:02pm BLOOD SUGAR Start: 02-03-2018 End: 08-20-2023 Start: 02-03-2018 End: 10-26-2020 Start: 10-17-2017 End: 01-02-2018 Insulin Lispro (Humalog Kwik pen Insulin) 200 UNIT/ML Insuln.Pen Discontinued 22 U SQ WITH LUNCH 0 0 October 17, 2017 11:08am January 02, 2018 3:19pm Start: 10-17-2017 End: 12-22-2017 Insulin Lispro (Humalog Kwik pen Insulin) 100 UNIT/ML Insuln.Pen Discontinued 16 U SQ WITH BREAKFAST 0 0 October 17, 2017 11:08am December 22, 2017 2:05pm Start: 10-16-2017 End: 10-17-2017 Insulin Lispro (Humalog Kwik pen) 100 UNIT/ML Insuln.Pen Discontinued 18 U SQ WITH BREAKFAST October 16, 2017 1:00am October 17, 2017 11:08am Start: 10-16-2017 End: 12-22-2017 Start: 06-04-2017 End: 10-17-2017 Insulin Lispro (Humalog Kwik pen) 200 UNIT/ML Insuln.Pen Discontinued 28 U SQ WITH DINNER June 04, 2017 12:00am October 17, 2017 11:09am Start: 01-01-2017 End: 01-02-2018 Insulin Lispro (Humalog Kwik pen Insulin) 200 UNIT/ML Insuln.Pen Discontinued 24 U SQ WITH DINNER 0 0 October 17, 2017 11:08am January 02, 2018 3:19pm Start: 01-01-2017 End: 01-02-2018 Start: 01-18-2016 End: 08-29-2016 Insulin Lispro (Humalog Kwik pen Insulin) 100 UNIT/ML Ml Discontinued 20 U SQ 3 TIMES DAILY WITH MEALS 0 0 April 02, 2016 9:40am August 26, 2016 4:40pm Start: 01-18-2016 End: 08-29-2016 Insulin Lispro (Humalog Kwik pen Insulin) 100 UNIT/ML Ml Discontinued 34 U SQ 3 TIMES DAILY WITH MEALS August 26, 2016 4:40pm August 29, 2016 12:50pm Start: 01-18-2016 End: 04-02-2016 Insulin Lispro (Humalog Kwik pen) 100 UNIT/ML Ml Discontinued 15 U SQ BEFORE MEALS AND AT BEDTIME January 18, 2016 12:00am April 02, 2016 9:41am Comment on above: Inject subcutaneousl y 14 units with breakfast, 16 units with lunch, and 24 units with dinner Inject 14units with breakfast, 14 units with lunch, and 24 units with dinner isopropyl alcohol 0.7 ml/ml medicated pad (20 sources) Start: 09-01-2023 alcohol swabs Use up to 9 times per day to clean skin before testing blood sugar and injecting insulins (100 per box) 300 Each 09/01/2023 Active Start: 03-27-2023 alcohol swabs Use up to 9 times per day to clean skin before testing blood sugar and injecting insulins (100 per box) 300 Each 5 03/27/2023 Active Start: 12-07-2020 End: 03-27-2023 alcohol swabs UAD to clean s kin before testing blood sugar and injecting insulins. 300 Each 5 12/07/2020 03/27/2023 Discontinued Comment on above: UAD to clean skin be fore testing blood sugar and injecting insulins. Use up to 9 times pe r day to clean skin before testing blood sugar and injecting insulins (100 per box) levothyroxine sodium 0.088 mg oral tablet (20 sources) l-Thyroxine Start: 01-19-2024 take 1 tablet by mouth once daily Start: 02-03-2018 End: 01-26-2024 take 1 tablet by mouth once daily Levothyroxine 100 MCG tablet Discontinued 100 ug PO DAILY February 03, 2018 12:00am January 19, 2024 10:15am THYROID Start: 05-19-2007 Levoxyl 0.025 mg oral tablet 0.025 mg, 1 tab(s), PO, Daily, 0, 0 Start Date: 05/19/07 Status: Ordered Comment on above: Take 1 tablet by shlomo th every morning. lidocaine 0.05 mg/mg topical ointment (20 sources) Antiarrhythmic, Amide Local Anesthetic Start: lidocaine (XYLOCAINE) 5 % ointment Apply to affected area as needed. use a small amount to affected area qid prn pain 30 g 1 06/29/2021 Active Comment on above: Apply to affected ar ea as needed. use a small amount to affected area qid prn pain linaclotide 0.145 mg oral capsule (3 sources) Guanylate Cyclase-C Agonist Start: 5 take 1 capsule by mouth once daily 30 minutes before breakfast melatonin 5 mg oral capsule (20 sources) Start: End: 3 take 1 capsule by mouth once daily at bedtime Melatonin 5 mg cap Indications: Sleeping difficulty Take 1 capsule by mouth daily at bedtime. 90 capsule 1 07/17/2022 01/13/2023 Active Comment on above: Take 1 capsule by mo uth daily at bedtime. metoprolol tartrate 50 mg oral tablet (20 sources) beta-Adrenergic Sudhakar Start: 4 take 1 tablet by mouth twice daily Start: 09-09-2023 End: 11-08-2023 take 1 tablet by mouth twice daily metoprolol tartrate, short acting, (LOPRESSOR) 50 mg tablet Indications: Coronary artery disease with unstable angina pectoris, unspecified vessel or lesion type, unspecified whether [place] or transplanted heart (HCC) , Essential hypertension , AF (paroxysmal atrial fibrillation) (HCC) Take 1 tablet by mouth two times a day. 60 tablet 1 09/09/2023 Active Start: 08-20-2023 End: 03-02-2024 Metoprolol Tartrate 100 mg t ablet Discontinued 50 mg PO TWICE A DAY 30 0 August 20, 2023 4:47pm March 02, 2024 7:06pm Heart Rate Start: 08-13-2023 End: 08-20-2023 Metoprolol Tartrate 100 mg t ablet Discontinued 150 mg PO TWICE A DAY August 13, 2023 1:00am August 20, 2023 4:47pm Heart Rate Start: 08-13-2023 End: 08-20-2023 take 150 mg by mouth twice daily Metoprolol Tartrate Discontinued 150 MG PO TWICE A DAY August 13, 2023 1:00am August 20, 2023 4:47pm Start: 08-23-2021 End: 09-09-2023 take 1.5 tablets by mouth twice daily metoprolol tartrate, short acting, (LOPRESSOR) 50 mg tablet Indications: Coronary artery disease with unstable angina pectoris, unspecified vessel or lesion type, unspecified whether [place] or transplanted heart (HCC) , Essential hypertension , AF (paroxysmal atrial fibrillation) (HCC) Take 1.5 tablets by mouth twice daily. 270 tablet 1 08/23/2021 09/09/2023 Discontinued Start: 06-05-2021 End: 01-25-2022 Metoprolol Tartrate 100 mg t ablet Discontinued 75 mg PO TWICE A DAY June 05, 2021 4:10pm January 25, 2022 2:11pm Heart Rate Start: 03-06-2020 End: 05-01-2020 Metoprolol Tartrate 100 mg t ablet Discontinued 0 PO TWICE A DAY March 06, 2020 12:03pm May 01, 2020 4:14pm Heart Rate 75 mg PO twice a day; Start: 08-30-2019 End: 09-28-2019 take 4 tablets by mouth twice daily Metoprolol Tartrate 25 MG tablet Discontinued 0.5 {tbl} PO TWICE A DAY August 30, 2019 1:00am September 28, 2019 5:17pm heart take with 100mg tablet for 112.5mg dose bid Start: 08-30-2019 End: 09-28-2019 take 1 tablet by mouth twice daily Metoprolol Tartrate Discontinued 0.5 TABLET PO TWICE A DAY August 30, 2019 1:00am September 28, 2019 5:17pm take with 100mg tablet for 112.5mg dose bid Start: 06-08-2019 End: 08-11-2019 Metoprolol Tartrate 25 mg ta blet Discontinued 12.5 mg PO TWICE A DAY June 08, 2019 12:00am August 11, 2019 12:06pm Take with metoprolol tartrate 100mg = 112.5mg BID Start: 06-08-2019 End: 08-11-2019 take 100 mg by mouth twice daily, then take 112.5 mg by mouth twice daily Metoprolol Tartrate Discontinued 12.5 MG PO TWICE A DAY June 08, 2019 12:00am August 11, 2019 12:06pm Take with metoprolol tartrate 100mg = 112.5mg BID Start: 09-02-2018 End: 08-13-2023 take 1 tablet by mouth twice daily Metoprolol Tartrate 100 mg tablet Discontinued 100 mg PO TWICE A DAY 60 December 27, 2022 2:06pm August 13, 2023 6:36pm Heart Rate Start: 09-02-2018 End: 08-20-2023 Metoprolol Tartrate 100 mg t ablet Discontinued 100 mg PO TWICE A DAY June 08, 2019 2:13pm September 28, 2019 5:19pm Heart Rate Take with metoprolol tartrate 12.5mg = 112.5mg BID Start: 09-02-2018 End: 08-20-2023 take 50 mg by mouth twice daily Metoprolol Tartrate Ac tive 50 MG PO TWICE A DAY August 20, 2023 4:47pm Start: 09-02-2018 End: 12-27-2022 take 75 mg by mouth twice daily Metoprolol Tartrate Di scontinued 75 MG PO TWICE A DAY June 05, 2021 4:10pm January 25, 2022 2:11pm Start: 02-05-2018 End: 04-05-2018 take 1 tablet by mouth twice daily Metoprolol Tartrate 100 MG tablet Discontinued 100 mg PO TWICE A DAY 60 0 February 05, 2018 12:00am April 05, 2018 9:55am Start: 02-05-2018 End: 04-05-2018 Start: 02-03-2018 End: 02-05-2018 take 1 tablet by mouth twice daily Metoprolol Tartrate 50 MG tablet Discontinued 50 mg PO TWICE A DAY February 03, 2018 12:00am February 05, 2018 11:04am BLOOD PRESSURE Start: 04-02-2016 End: 01-02-2018 take 1 tablet by mouth twice daily Metoprolol Tartrate 50 MG tablet Discontinued 50 mg PO TWICE A DAY 0 April 02, 2016 12:00am January 02, 2018 3:19pm Start: 11-01-2015 End: 04-02-2016 take 1 tablet by mouth twice daily Metoprolol Tartrate 25 MG tablet Discontinued 25 mg PO TWICE A DAY February 21, 2016 9:50am April 02, 2016 9:40am Start: 06-21-2015 End: 11-01-2015 Metoprolol Tartrate 25 MG ta blet Discontinued 12.5 mg PO TWICE A DAY 60 0 June 21, 2015 12:00am November 01, 2015 3:09pm Start: 06-21-2015 End: 11-01-2015 take 12.5 mg by mouth twice daily Metoprolol Tartrate Discontinued 12.5 MG PO TWICE A DAY 60 June 21, 2015 12:00am November 01, 2015 3:09pm Start: 06-19-2015 End: 06-21-2015 take 1 tablet by mouth once daily Metoprolol Tartrate 25 MG tablet Discontinued 25 mg PO DAILY June 19, 2015 12:00am June 21, 2015 8:07am Start: 06-19-2015 End: 04-02-2016 Start: 06-15-2014 End: 02-20-2015 Metoprolol Tartrate 50 MG ta blet Discontinued 25 mg PO TWICE A DAY 60 0 June 15, 2014 2:58pm February 20, 2015 10:03am Start: 06-15-2014 End: 02-20-2015 take 25 mg by mouth twice daily Metoprolol Tartrate Di scontinued 25 MG PO TWICE A DAY 60 June 15, 2014 2:58pm February 20, 2015 10:03am Start: 03-12-2014 End: 02-20-2015 take 1 tablet by mouth twice daily Metoprolol Tartrate 50 MG tablet Discontinued 50 mg PO TWICE A DAY March 12, 2014 12:00am June 15, 2014 2:58pm Start: 07-12-2013 End: 07-14-2013 take 1 tablet by mouth twice daily Metoprolol Tartrate 50 MG tablet Discontinued 50 mg PO TWICE A DAY July 12, 2013 12:00am July 14, 2013 2:38pm Comment on above: Take 1.5 tablets by mouth twice daily. Take 1 tablet by shlomo th two times a day. mupirocin 0.02 mg/mg topical ointment (1 source) RNA Synthetase Inhibitor Antibacterial Start: End: mupirocin (BACTROBAN) 2 % ointment Apply to affected area three times daily for 10 days. 30 g 1 12/27/2021 01/06/2022 Active Comment on above: Apply to affected ar ea three times daily for 10 days. nitrofurantoin, macrocrystals 25 mg / nitrofurantoin, monohydrate 75 mg oral capsule (20 sources) Nitrofuran Antibacterial Start: End: take 1 capsule by mouth twice daily at mealtime nitrofurantoin monohydrate and macrocrystal (MACROBID) 100 mg capsule Take 1 capsule by mouth twice daily with meals for 5 days. 10 capsule 0 07/14/2022 07/19/2022 Active Start: 10-26-2020 End: 11-27-2020 take 1 capsule by mouth twice daily Nitrofurantoin Monohyd/M-Cryst 100 MG capsule Discontinued 100 mg PO TWICE A DAY October 26, 2020 1:00am November 27, 2020 4:55pm Comment on above: [facility] 1 capsule by [facility] daily with meals for 5 days. nitroglycerin 0.4 mg sublingual tablet (20 sources) Nitrate Vasodilator Start: 08-13-2023 End: 08-13-2023 nitroglycerin sublingual 0.4 mg tab(s) (NITROQUICK) Start: 08-13-2023 End: 08-13-2023 nitroglycerin sublingual 0.4 mg tab(s) (NITROQUICK) Start: 03-06-2020 nitroglycerin sublingual (NITROQUICK) 0.4 mg SL tablet DISSOLVE 1 TAB UNDER THE TONGUE NEEDED FOR CHEST PAIN EVERY 5 MINUTES UP TO 3 TIMES. IF NO RELIEF CALL 911. 25 tablet 1 03/06/2020 Active Start: 06-08-2019 End: 01-12-2025 Nitroglycerin 0.4 mg tablet, sublingual Discontinued 0.4 mg SL every 5 to 15 minutes as needed for chest pain 14 12October 21, 2022 5:07pm January 12, 2025 9:33am Start: 06-08-2019 End: 10-21-2022 Nitroglycerin Discontinued 0 .4 MG SL every 5 to 15 minutes June 05, 2021 4:22pm October 21, 2022 5:08pm Start: 06-08-2019 End: 10-21-2022 Start: 07-12-2013 End: 07-14-2013 apply 0.2 mg transdermal route once daily Nitroglycerin 0.2 MG patch Discontinued 0.2 mg TRANSDERM. DAILY July 12, 2013 12:00am July 14, 2013 2:30pm Start: 07-12-2013 End: 07-14-2013 Comment on above: DISSOLVE 1 TAB UNDER THE TONGUE NEEDED FOR CHEST PAIN EVERY 5 MINUTES UP TO 3 TIMES. IF NO RELIEF CALL 911. nystatin 100 unt/mg topical powder (20 sources) Polyene Antifungal Start: 09-09-2023 nystatin (MYCOSTATIN) powder Apply 1 application to affected area three times a day. 60 g 09/09/2023 Active Start: 06-25-2023 nystatin (MYCO STATIN) powder Apply 1 application to affected area three times a day. 60 g 2 06/25/2023 Active Start: 06-03-2023 End: 12-04-2024 Nystatin (Nyamyc) 100,000 un it/gram powder Discontinued 1 NMA TOPICAL 3 TIMES DAILY NEEDED June 03, 2023 12:00am December 04, 2024 10:02pm SKIN Start: 06-03-2023 Nystatin (Nyam yc) 100,000 unit/gram powder Active 1 APPLIC TOPICAL 3 TIMES DAILY NEEDED June 03, 2023 12:00am Start: 06-03-2023 Start: 07-11-2022 End: 03-20-2023 nystatin (MYCOSTATIN) powder Apply 1 application to affected area three times daily. 60 g 2 12/27/2022 03/20/2023 Discontinued Comment on above: Apply 1 application to affected area three times daily. Apply 1 application to affected area three times a day. omeprazole 40 mg delayed release oral capsule (20 sources) Proton Pump Inhibitor Start: 10-25-2020 End: 01-03-2024 take 1 capsule by mouth once daily Start: 05-17-2018 End: 07-04-2020 take 1 capsule by mouth once daily Omeprazole 20 MG capsule Discontinued 20 mg PO DAILY May 17, 2018 12:00am July 04, 2020 10:01am Acid reflux Start: 02-13-2015 End: 02-20-2015 take 1 capsule by mouth twice daily Omeprazole 20 MG capsule Discontinued 20 mg PO TWICE A DAY February 13, 2015 12:00am February 20, 2015 10:02am Start: 02-13-2015 End: 02-20-2015 Start: 07-12-2013 End: 12-10-2013 take 1 capsule by mouth twice daily Omeprazole 20 MG capsule Discontinued 20 mg PO TWICE A DAY July 12, 2013 12:00am December 10, 2013 2:35pm Start: 07-12-2013 End: 12-10-2013 Start: 10-13-2009 take 10 mg by mouth once daily omeprazole 10 mg, PO, Daily Start Date: 10/13/09 Status: Ordered Comment on above: [facility]. OXYGEN, HOME THERAPY, (20 sources) Start: 05-21-20 17 OXYGEN, HOME THERAPY, Inhale 3 L/min as instructed as directed. 0 05/21/2017 Active Comment on above: Inhale 3 L/min as in structed as directed. potassium chloride 10 meq extended release oral tablet (20 sources) Start: 06-08-20 take 1 tablet by mouth once daily at breakfast potassium chloride (K-TAB) 10 mEq tablet Indications: Hypokalemia Take 1 tablet by mouth daily with breakfast. 60 tablet 5 12/02/2022 Active Comment on above: Take 1 tablet by [facility] daily with breakfast. prednisoLONE acetate 10 mg/ml ophthalmic suspension (1 source) Corticosteroid Start: 10-13-19 take 1 drop(s) into the eye(s) once daily Pred Forte 1% ophthalmic suspension 1 drop(s), Eye, right, Daily, right eye Start Date: 10/13/09 Status: Ordered silver sulfADIAZINE 10 mg/ml topical cream (4 sources) Sulfonamide Antibacterial Start: 05-03-20 End: 05-05-20 silver sulfADIAZINE (SILVADENE) 1 % cream Apply to affected area two times a day. use to protect skin in vulvar and anal area 85 g 3 05/05/2024 Active Completed/Discontinued Medications Medication Drug Class(es) Dates Sig (Normalized) Sig (Original) acetaminophen 500 mg oral tablet (20 sources) Start: 12-18-2022 End: 06-03-2023 take 2 tablets by mouth every eight hours Acetaminophen 500 mg Tablet Discontinued 1000 mg PO EVERY 8 HOURS 0 0 December 18, 2022 12:00am June 03, 2023 1:55pm Start: 12-18-2022 End: 06-03-2023 take 1000 mg by mouth every eight hours Acetaminophen Discontinued 1000 MG PO EVERY 8 HOURS 0 December 18, 2022 12:00am June 03, 2023 1:55pm Start: 08-06-2018 End: 08-11-2019 take 2 tablets by mouth every eight hours as needed for pain Acetaminophen 500 MG tablet Discontinued 1000 mg PO EVERY 8 HOURS as needed for Pain 0 August 06, 2018 12:54pm August 11, 2019 11:18am Start: 08-06-2018 End: 08-11-2019 take 1000 mg by mouth every eight hours Acetaminophen Discontinued 1000 MG PO EVERY 8 HOURS August 06, 2018 12:54pm August 11, 2019 11:18am acetaminophen 325 mg / oxyCO DONE hydrochloride 5 mg oral tablet (20 sources) Opioid Agonist Start: 12-24-2021 End: 06-12-2022 Start: 12-24-2021 End: 06-12-2022 take 1 tablet by mouth every six hours as needed for pain Oxycodone-Acetaminophen (Percocet) 5-325 mg tablet Discontinued 1 {tbl} PO EVERY 6 HOURS as needed for pain 12 3 0 December 24, 2021 June 12, 2022 1:49pm Closed fracture of rib Fracture of one rib, unspecified side, initial encounter for closed fracture Start: 10-20-2014 End: 02-13-2015 Oxycodone-Acetaminophen 1 TA BLET tablet Discontinued 1 - 2 {tbl} PO EVERY 4 HOURS NEEDED as needed for Pain October 20, 2014 1:00am February 13, 2015 3:37pm Start: 10-20-2014 End: 02-13-2015 take 1 tablet by mouth every four hours as needed Oxycodone-Acetaminophen Discontinued 1 - 2 TABLET PO EVERY 4 HOURS NEEDED October 20, 2014 1:00am February 13, 2015 3:37pm Start: 10-20-2014 End: 02-13-2015 acyclovir 400 mg oral tablet (20 sources) Herpesvirus Nucleoside Analog DNA Polymerase Inhibitor, Herpes Simplex Virus Nucleoside Analog DNA Polymerase Inhibitor, Herpes Zoster Virus Nucleoside Analog DNA Polymerase Inhibitor Start: 06-29-2021 End: 02-06-2023 take 1 tablet by mouth three times daily as needed acyclovir (ZOVIRAX) 400 mg tablet Take 1 tablet by mouth three times daily. for 5 days prn outbreaks 30 tablet 1 06/29/2021 02/06/2023 Discontinued Comment on above: Take 1 tablet by [facility] three times daily. for 5 days prn outbreaks albuterol 0.833 mg/ml / ipratropium bromide 0.167 mg/ml inhalation solution (20 sources) Anticholinergic, beta2-Adrenergic Agonist Start: 02-11-2018 End: 04-05-2018 take 1 mL by inhalation every four hours Ipratropium-Albute rol 3 ML Ampul.Neb Discontinued 3 mL INHALATION EVERY 4 HOURS February 11, 2018 12:00am April 05, 2018 9:56am Start: 02-11-2018 End: 04-05-2018 take 1 mL by inhalation every four hours Ipratropium-Albuterol Discontinued 3 ML INHALATION EVERY 4 HOURS February 11, 2018 12:00am April 05, 2018 9:56am Start: 02-11-2018 End: 04-05-2018 Start: 02-14-2015 End: 02-20-2015 take 1 mL by inhalation every six hours Ipratropium-Albuterol 3 ML Ampul.Neb Discontinued 3 mL INHALATION EVERY 6 HOURS X 10 DAYS 1 February 14, 2015 12:00am February 20, 2015 10:00am Start: 02-14-2015 End: 02-20-2015 take 1 mL by inhalation every six hours Ipratropium-Albuterol Discontinued 3 ML INHALATION EVERY 6 HOURS X 10 DAYS February 14, 2015 12:00am February 20, 2015 10:00am Start: 02-14-2015 End: 02-20-2015 allopurinol 100 mg oral tablet (20 sources) Xanthine Oxidase Inhibitor Start: 08-11-2019 End: 10-27-2024 take 1 tablet by mouth once daily Allopurinol 100 mg tablet Discontinued 100 mg PO DAILY August 11, 2019 1:00am October 27, 2024 2:30pm gout Comment on above: Take 1 tablet by [facility] once daily. For gout. amLODIPine 5 mg oral tablet (20 sources) Dihydropyridine Calcium Channel Sudhakar Start: 11-12-2022 End: 08-31-2024 take 1 tablet by mouth once daily Amlodipine 5 mg tablet Discontinued 5 mg PO DAILY 21 08September 30, 2023 2:56pm August 31, 2024 4:23pm BP Start: 11-07-2022 End: 11-12-2022 take 2 tablets by mouth once daily Amlodipine 2.5 mg tablet Discontinued 5 mg PO DAILY 30 November 07, 2022 5:28pm November 12, 2022 1:11pm Start: 10-17-2022 End: 11-12-2022 take 1 tablet by mouth once daily Amlodipine 2.5 mg tablet Discontinued 2.5 mg PO DAILY 20 09October 17, 2022 5:30pm November 07, 2022 5:28pm Start: 10-17-2022 End: 11-12-2022 take 5 mg by mouth once daily Amlodipine Discontinued 5 MG PO DAILY November 07, 2022 5:28pm November 12, 2022 1:11pm Start: 06-21-2015 End: 08-29-2016 take 1 tablet by mouth once daily Amlodipine 10 MG tablet Discontinued 10 mg PO DAILY 30 0 June 21, 2015 12:00am August 29, 2016 12:43pm Start: 12-08-2013 End: 06-15-2014 take 2.5 mg by mouth once daily Amlodipine 5 MG tablet Discontinued 2.5 mg PO DAILY December 08, 2013 12:00am June 15, 2014 2:57pm Start: 12-08-2013 End: 06-15-2014 take 2.5 mg by mouth once daily Amlodipine Discontinue d 2.5 MG PO DAILY December 08, 2013 12:00am June 15, 2014 2:57pm Start: 12-08-2013 End: 06-15-2014 Start: 07-12-2013 End: 07-14-2013 take 1 tablet by mouth once daily Amlodipine 5 MG tablet Discontinued 5 mg PO DAILY July 12, 2013 12:00am July 14, 2013 2:34pm Start: 05-20-2007 Norvasc 5 mg, PO, Daily, 0, 0 Start Date: 05/20/07 Status: Ordered aspirin 81 mg delayed release oral tablet (20 sources) Platelet Aggregation Inhibitor, Nonsteroidal Anti-inflammatory Drug Start: 09-02-2018 End: 01-03-2024 take 1 tablet by mouth once daily Aspirin 81 mg tablet,delayed release (DR/EC) Discontinued 81 mg PO DAILY August 13, 2023 1:00am August 20, 2023 4:31pm Start: 06-21-2015 End: 06-21-2015 take 1 tablet by mouth once daily Aspirin 81 MG Tab.Chew Discontinued 81 mg PO DAILY@0800 0 0 June 21, 2015 12:00am June 21, 2015 8:10am Comment on above: Take 1 tablet by [facility] every morning. azithromycin 250 mg oral tablet (20 sources) Macrolide Antimicrobial Start: 04-22-2024 End: 10-27-2024 Azithromycin 250 mg tablet Discontinued 250 mg PO As Directed April 22, 2024 12:00am October 27, 2024 2:31pm Start: 10-23-2015 End: 11-01-2015 take 1 tablet by mouth once daily Azithromycin 250 MG tablet Discontinued 250 mg PO DAILY 4 0 October 23, 2015 1:00am November 01, 2015 3:09pm Start: 02-14-2015 End: 02-20-2015 take 1 tablet by mouth once daily Azithromycin 250 MG tablet Discontinued 250 mg PO DAILY 3 0 February 14, 2015 12:00am February 20, 2015 10:01am pneumonia betamethasone 0.5 mg/ml / clotrimazole 10 mg/ml topical cream (6 sources) Azole Antifungal, Corticosteroid Start: 04-22-2024 End: 11-04-2024 Clotrimazole-Betamethasone 1-0.05 % cream Discontinued NMA TOPICAL April 22, 2024 12:00am November 04, 2024 3:21pm Start: 01-30-2023 End: 03-01-2023 clotrimazole-betamethasone ( LOTRISONE) cream Apply to affected area twice daily. APPLY TO AFFECTED AREA 45 g 2 01/30/2023 03/01/2023 Comment on above: Apply to affected ar ea twice daily. APPLY TO AFFECTED AREA Blood-Glucose Meter monitoring kit (2 sources) Start: 03-19-2023 End: 03-20-2023 Blood-Glucose Meter monitoring kit Glucose Meter of Choice - Kit - Dx: Type 2 DM - Uncontrolled E11.65. Test blood sugar four times daily. 1 Each 0 03/19/2023 03/20/2023 Start: 03-19-2023 End: 03-20-2023 Blood-Glucose Meter monitori ng kit Glucose Meter of Choice - Kit - Dx: Type 2 DM - Uncontrolled E11.65. Test blood sugar four times daily. 1 Each 0 03/19/2023 03/20/2023 Active Comment on above: Glucose Meter of [employer] ice - Kit - Dx: Type 2 DM - Uncontrolled E11.65. Test blood sugar four times daily. calcium carbonate 1000 mg / magnesium hydroxide 200 mg chewable tablet (20 sources) Start: 6 End: 6 take 1 tablet by mouth once daily as needed Calcium Carbonate-Mag Hydroxid (Antacid 1000-200 Mg Tab Chew) 1 EACH Tab.Chew Discontinued 1 NMA PO DAILY as needed for Gas August 27, 2016 1:00am August 29, 2016 12:49pm Start: 08-27-2016 End: 08-29-2016 cefdinir 300 mg oral capsule (4 sources) Cephalosporin Antibacterial Start: 04-22-2024 End: 10-27-2024 take 1 capsule by mouth twice daily Cefdinir 300 mg capsule Discontinued 300 mg PO TWICE A DAY April 22, 2024 12:00am October 27, 2024 2:32pm cephalexin 500 mg oral capsule (6 sources) Cephalosporin Antibacterial Start: 01-19-2024 End: 03-02-2024 take 1 capsule by mouth every six hours Cephalexin 500 mg capsule Discontinued 500 mg PO EVERY 6 HOURS January 19, 2024 12:00am March 02, 2024 7:06pm Cholecalciferol / Glucose (20 sources) Vitamin D Start: 09-02-2018 End: 03-06-2020 Trueplus Glucose Chew Discontinued 4 TABLET PO NEEDED September 02, 2018 4:31pm March 06, 2020 12:06pm Start: 09-02-2018 End: 03-06-2020 Trueplus Glucose Chew Discon tinued 4 {tbl} PO NEEDED as needed for Hypoglycemia September 02, 2018 1:00am March 06, 2020 12:06pm Start: 09-02-2018 End: 03-06-2020 Trueplus Glucose Chew Discon tinued 4 TABLET PO NEEDED September 02, 2018 12:00am March 06, 2020 11:06am Start: 09-02-2018 End: 03-06-2020 Trueplus Glucose Chew Discon tinued 4 TABLET PO NEEDED September 02, 2018 1:00am March 06, 2020 12:06pm clopidogrel 75 mg oral tablet (20 sources) [id number] Platelet Inhibitor Start: 06-05-2023 End: 08-20-2023 take 1 tablet by mouth once daily Clopidogrel 75 mg tablet Discontinued 75 mg PO DAILY 30 August 12, 2023 3:49pm August 20, 2023 4:47pm Pt told me today she ran out 4 days ago! Start: 09-06-2019 End: 09-28-2019 take 1 tablet by mouth once daily Clopidogrel 75 mg tablet Discontinued 75 mg PO DAILY 30 3 September 23, 2019 10:47am September 28, 2019 5:17pm For Cardiac cath Comment on above: Take 75 mg by mouth once daily. codeine phosphate 1.26 mg/ml / guaiFENesin 20 mg/ml oral solution (20 sources) Opioid Agonist Start: 01-14-2023 End: 04-23-2023 take 1 mL by mouth four times daily as needed for cough Codeine-Guaifenesin 6.3-100 mg/5 mL liquid Discontinued 10 mL PO 4 TIMES DAILY NEEDED as needed for cough 200 5 0 January 14, 2023 2:56am April 23, 2023 6:31pm Acute exacerbation of chronic obstructive pulmonary disease Chronic obstructive pulmonary disease with (acute) exacerbation Start: 01-14-2023 End: 04-23-2023 take 1 mL by mouth four times daily as needed Codeine-Guaifenesin Discontinued 10 ML PO 4 TIMES DAILY NEEDED 200 5 January 14, 2023 2:56am April 23, 2023 6:31pm Start: 01-14-2023 End: 04-23-2023 diclofenac potassium 50 mg oral tablet (20 sources) Nonsteroidal Anti-inflammatory Drug Start: 12-08-2013 End: 12-10-2013 take 1 tablet by mouth twice daily Diclofenac Potassium (Cataflam) 50 MG tablet Discontinued 50 mg PO TWICE A DAY December 08, 2013 12:00am December 10, 2013 2:32pm Start: 07-12-2013 End: 07-14-2013 take 1 tablet by mouth twice daily Diclofenac Potassium (Cataflam) 50 MG tablet Discontinued 50 mg PO TWICE A DAY July 12, 2013 12:00am July 14, 2013 2:30pm 24 hr dilTIAZem hydrochloride 120 mg extended release oral capsule (20 sources) Calcium Channel Sudhakar Start: 08-11-2019 End: 12-01-2019 take 1 capsule by mouth once daily, then take 1 capsule by mouth every twenty-four hours Diltiazem Hcl (Cardizem Cd) 120 mg capsule,extended release 24hr Discontinued 120 mg PO DAILY 30 6 August 11, 2019 1:00am December 01, 2019 4:20pm Start: 06-08-2019 End: 08-11-2019 take 1 capsule by mouth once daily Diltiazem Hcl 180 mg capsule,extended release 24hr Discontinued 180 mg PO DAILY June 08, 2019 12:00am August 11, 2019 11:18am Start: 02-03-2018 End: 08-06-2018 take 1 capsule by mouth once daily Diltiazem Hcl (Cartia Xt) 180 MG Cap.Er.24h Discontinued 180 mg PO DAILY February 03, 2018 12:00am August 06, 2018 12:56pm HEART Start: 08-29-2016 End: 01-02-2018 take 1 capsule by mouth once daily Diltiazem Hcl 180 MG capsule Discontinued 180 mg PO DAILY 30 0 August 29, 2016 1:00am January 02, 2018 2:54pm Start: 04-02-2016 End: 08-29-2016 take 1 capsule by mouth every twelve hours Diltiazem Hcl 60 MG Cap.Sr.12h Discontinued 120 mg PO EVERY 12 HOURS 0 April 02, 2016 12:00am August 26, 2016 4:40pm Start: 04-02-2016 End: 08-29-2016 take 1 capsule by mouth once daily Diltiazem Hcl 60 MG Cap.Sr.12h Discontinued 120 mg PO DAILY August 26, 2016 4:40pm August 29, 2016 12:56pm diphenhydrAMINE hydrochloride 25 mg oral capsule (20 sources) Histamine-1 Receptor Antagonist Start: 08-30-2019 End: 03-06-2020 take 1 capsule by mouth twice daily as needed Diphenhydramine Hcl 25 MG capsule Discontinued 25 mg PO TWICE DAILY NEEDED as needed for Itching August 30, 2019 1:00am March 06, 2020 12:07pm Start: 08-27-2016 End: 08-29-2016 take 1 capsule by mouth once daily as needed Diphenhydramine Hcl (Benadryl) 25 MG capsule Discontinued 25 mg PO DAILY as needed for Itching August 27, 2016 1:00am August 29, 2016 12:49pm Start: 08-27-2016 End: 08-29-2016 docusate sodium 100 mg oral capsule (20 sources) Start: 06-08-2019 End: 07-11-2022 take 1 capsule by mouth at bedtime Docusate Sodium 100 mg capsule Discontinued 100 mg PO AT BEDTIME June 08, 2019 12:00am June 12, 2022 1:50pm constipation Comment on above: [facility] capsule [facility] daily as needed for constipation. doxycycline hyclate 100 mg oral capsule (20 sources) Tetracycline-cl ass Drug Start: 01-19-2024 End: 01-26-2024 take 1 capsule by mouth twice daily Doxycycline Hyclate 100 mg capsule Discontinued 100 mg PO TWICE A DAY January 19, 2024 12:00am January 26, 2024 8:30am Start: 01-05-2023 End: 01-14-2023 take 1 tablet by mouth twice daily doxycycline (VIBRA-TABS) 100 mg tablet Take 1 tablet by mouth twice daily for 5 days. 10 tablet 01/09/2023 01/14/2023 Start: 01-03-2023 End: 04-23-2023 take 1 capsule by mouth twice daily Doxycycline Hyclate 100 mg capsule Discontinued 100 mg PO TWICE A DAY January 03, 2023 12:00am April 23, 2023 6:31pm Start: 07-22-2018 End: 08-06-2018 take 1 capsule by mouth twice daily Doxycycline Monohydrate 100 MG capsule Discontinued 100 mg PO TWICE A DAY July 22, 2018 12:00am August 06, 2018 12:56pm Comment on above: Take 100 mg by mouth twice daily. X 10 day Take 1 tablet by [facility] twice daily for 5 days. 0.8 ml enoxaparin sodium 100 mg/ml prefilled syringe (20 sources) Low Molecular Weight Heparin Start: 11-05-2022 End: 12-18-2022 Enoxaparin (Lovenox) 80 mg/0.8 mL syringe Discontinued 80 mg SC Q12H November 05, 2022 9:38am November 05, 2022 2:22pm Patient being bridged for upcoming surgery Start: 11-05-2022 End: 12-18-2022 ergocalciferol 1.25 mg oral capsule (20 sources) Provitamin D2 Compound Start: 06-08-2019 End: 12-01-2019 Ergocalciferol (Vitamin D2) 50,000 unit capsule Discontinued 97709 U PO EVERY WEEK June 08, 2019 12:00am December 01, 2019 3:46pm ferrous gluconate 324 mg oral tablet (20 sources) Start: 07-22-2018 End: 08-11-2019 take 1 tablet by mouth once daily Ferrous Gluconate 324 MG tablet Discontinued 324 mg PO DAILY July 22, 2018 12:00am August 11, 2019 11:17am SUPPLEMENT ferrous sulfate 325 mg oral tablet (20 sources) Start: 12-12-2022 Start: 11-04-2022 End: 10-05-2023 take 1 tablet by mouth once daily at breakfast ferrous sulfate 325 mg (65 mg iron) tablet Indications: Anemia, unspecified type Take 1 tablet by mouth daily with breakfast. 30 tablet 2 11/04/2022 01/24/2023 Discontinued Start: 03-04-2022 End: 10-15-2022 take 1 tablet by mouth once daily at breakfast ferrous sulfate 325 mg (65 mg iron) tablet Indications: Anemia, unspecified type Take 1 tablet by mouth daily with breakfast. 30 tablet 2 07/17/2022 10/15/2022 Active Comment on above: Take 1 tablet by [facility] daily with breakfast. fexofenadine hydrochloride 180 mg oral tablet (20 sources) Histamine-1 Receptor Antagonist Start: 09-26-19 End: 07-29-20 take 1 tablet by mouth once daily Fexofenadine 180 MG tablet Discontinued 180 mg PO DAILY September 26, 2020 1:00am June 12, 2022 1:50pm Comment on above: Take 1 tablet by [facility] once daily. fluconazole 150 mg oral tablet (4 sources) Azole Antifungal Start: 04-22-20 End: 10-27-19 Fluconazole 150 mg tablet Discontinued 150 mg PO Every 3 Days April 22, 2024 12:00am October 27, 2024 2:33pm fluticasone propionate 0.05 mg/actuat metered dose nasal spray (20 sources) Corticosteroid Start: 06-08-20 End: 06-12-20 Fluticasone Propionate (Allergy Relief (Fluticasone)) 50 mcg/actuation spray,suspension Discontinued 2 NMA INTRANASAL DAILY June 08, 2019 12:00am June 12, 2022 1:45pm allergies Start: 06-08-2019 End: 06-12-2022 Fluticasone Propionate (Yady rgy Relief (Fluticasone)) 50 mcg/actuation spray,suspension Discontinued 2 SPRAY INTRANASAL DAILY June 08, 2019 12:00am June 12, 2022 1:45pm Start: 06-08-2019 End: 06-12-2022 Comment on above: Use 2 Sprays in each nostril once daily. Fluticasone Propion-Salmeterol (20 sources) Corticosteroid, beta2-Adrenergic Agonist Start: 6 End: 6 take 1 puff(s) by inhalation twice daily Fluticasone Propion-Salmeterol (Advair 250/50 Mcg Diskus) 1 PUFF inhaler Discontinued 1 PUFF INHALATION TWICE A DAY 2 November 01, 2015 3:10pm April 02, 2016 9:25am Start: 11-01-2015 End: 04-02-2016 take 1 puff(s) by inhalation twice daily Fluticasone Propion-Salmeterol (Advair 250/50 Mcg Diskus) 1 PUFF inhaler Discontinued 1 NMA INHALATION TWICE A DAY 2 0 November 01, 2015 1:00am April 02, 2016 9:25am Start: 11-01-2015 End: 04-02-2016 take 1 puff(s) by inhalation twice daily Fluticasone Propion-Salmeterol (Advair 250/50 Mcg Diskus) 1 PUFF inhaler Discontinued 1 NMA INHALATION TWICE A DAY 2 November 01, 2015 1:00am April 02, 2016 9:25am Start: 11-01-2015 End: 04-02-2016 Start: 11-01-2015 End: 04-02-2016 take 1 puff(s) by inhalation twice daily Fluticasone Propion-Salmeterol (Advair 250/50 Mcg Diskus) 1 PUFF inhaler Discontinued 1 PUFF INHALATION TWICE A DAY 2 November 01, 2015 12:00am April 02, 2016 8:25am Start: 11-01-2015 End: 04-02-2016 take 1 puff(s) by inhalation twice daily Fluticasone Propion-Salmeterol (Advair 250/50 Mcg Diskus) 1 PUFF inhaler Discontinued 1 PUFF INHALATION TWICE A DAY 2 November 01, 2015 1:00am April 02, 2016 9:25am glimepiride 1 mg oral tablet (20 sources) Sulfonylurea Start: 08-27-2016 End: 08-29-2016 take 1 tablet by mouth once daily Glimepiride 1 MG tablet Discontinued 1 mg PO DAILY August 27, 2016 1:00am August 29, 2016 1:05pm 12 hr guaiFENesin 1200 mg extended release oral tablet (20 sources) Start: 02-05-2018 End: 02-11-2018 take 1 tablet by mouth twice daily Guaifenesin 1,200 MG tablet Discontinued 1200 mg PO TWICE A DAY February 05, 2018 12:00am February 11, 2018 2:26pm Start: 02-14-2015 End: 02-20-2015 take 1 tablet by mouth twice daily Guaifenesin (Mucus Relief Er) 1,200 MG tablet Discontinued 1200 mg PO TWICE A DAY February 14, 2015 12:00am February 20, 2015 10:03am 12 hr guaiFENesin 1200 mg / pseudoephedrine hydrochloride 120 mg extended release oral tablet (20 sources) alpha-Adrenergic Agonist Start: 08-30-2019 End: 03-06-2020 Pseudoephedrine-Guaifenesin 1 EACH tablet extended release 12 hr Discontinued 1 NMA PO TWICE A DAY August 30, 2019 1:00am March 06, 2020 12:06pm cough Start: 08-30-2019 End: 03-06-2020 Pseudoephedrine-Guaifenesin Discontinued 1 EACH PO TWICE A DAY August 30, 2019 1:00am March 06, 2020 12:06pm Start: 08-30-2019 End: 03-06-2020 ibuprofen 200 mg oral tablet (20 sources) Nonsteroidal Anti-inflammatory Drug Start: 07-22-2018 End: 08-06-2018 take 2 tablets by mouth every six hours as needed for pain Ibuprofen 200 MG tablet Discontinued 400 mg PO EVERY 6 HOURS NEEDED as needed for Pain July 22, 2018 12:00am August 06, 2018 12:57pm Start: 07-22-2018 End: 08-06-2018 take 400 mg by mouth every six hours as needed Ibuprofen Discontinued 400 MG PO EVERY 6 HOURS NEEDED July 22, 2018 12:00am August 06, 2018 12:57pm Start: 06-13-2014 End: 06-15-2014 Ibuprofen (Motrin Ib) 200 MG tablet Discontinued 400 - 600 mg PO EVERY 6 HOURS NEEDED as needed for Pain/Headache June 13, 2014 12:00am June 15, 2014 2:57pm Start: 06-13-2014 End: 06-15-2014 3 ml insulin detemir 100 unt/ml pen injector (20 sources) Insulin Analog Start: 08-29-2016 End: 11-27-2016 Insulin Detemir U-100 (Levemir Flextouch U100 Insulin) 100 UNITS/ML Insuln.Pen Discontinued 40 U SC TWICE A DAY 1 August 29, 2016 1:08pm November 27, 2016 9:16am Start: 08-29-2016 End: 11-27-2016 Insulin Detemir U-100 (Levem ir Flextouch U-100 Insuln) 100 UNITS/ML Insuln.Pen Discontinued 40 UNITS SC TWICE A DAY August 29, 2016 1:08pm November 27, 2016 9:16am Start: 08-26-2016 End: 08-29-2016 Insulin Detemir U-100 (Levem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 sources) Feeling of lump in throat; Translations: [Other specified symptoms and signs involving the circulatory and respiratory systems] Episodic Other circulatory disease (15 sources) H/O: hypertension; Translations: [Personal history of other diseases of the circulatory system] 06-03-2023 Episodic Other circulatory disease (20 sources) H/O: heart disorder; Translations: [Personal history of other diseases of the circulatory system] 06-03-2023 Episodic Other circulatory disease (15 sources) Personal history of other diseases of the circulatory system; Translations: [Personal history of other diseases of circulatory system] 06-05-2023 Episodic Other circulatory disease (1 source) Decreased breath sounds; Translations: [Other specified symptoms and signs involving the circulatory and respiratory systems] 08-13-2023 Episodic Other circulatory disease (1 source) H/O: atrial fibrillation; Translations: [Personal history of other diseases of the circulatory system] 06-19-2025 Episodic Other connective tissue disease (1 source) Pain in left foot; Translations: [Pain in left foot] Episodic Other connective tissue disease (3 sources) Pain of toe of right foot; Translations: [Pain in right toe(s)] 06-12-2023 Episodic Other connective tissue disease (3 sources) Pain of toe of left foot; Translations: [Pain in left toe(s)] 06-12-2023 Episodic Other diseases of veins and lymphatics (3 sources) Vascular insufficiency; Translations: [Venous insufficiency (chronic) (peripheral)] 01-15-2024 Episodic Other endocrine disorders (20 sources) Hypoglycemia; Translations: [Hypoglycemia, unspecified] 06-08-2019 Chronic Other female genital disorders (1 source) Labial cyst; Translations: [Vulvar cyst] 04-03-2023 Episodic Other female genital disorders (1 source) Vulval irritation; Translations: [Other specified noninflammatory disorders of vulva and perineum] 05-03-2024 Episodic Other fractures (20 sources) Closed fracture of rib; Translations: [Fracture of one rib, unspecified side, initial encounter for closed fracture] 01-01-2022 Episodic Other fractures (1 source) Closed fracture of single left rib; Translations: [Fracture of one rib, left side, initial encounter for closed fracture] Episodic Other gastrointestinal disorders (5 sources) Chronic idiopathic constipation; Translations: [Chronic idiopathic constipation] 01-03-2025 Chronic Other gastrointestinal disorders (1 source) Chronic idiopathic constipation; Translations: [Chronic idiopathic constipation] Onset: 5 Chronic Other gastrointestinal disorders (20 sources) Dysphagia; Translations: [Dysphagia, unspecified] 06-24-2016 Episodic Other gastrointestinal disorders (1 source) Incontinence of feces; Translations: [Full incontinence of feces] Episodic Other gastrointestinal disorders (16 sources) Diarrhea; Translations: [Diarrhea, unspecified] Onset: 9 Resolved: 1 11-02-2020 Episodic Other gastrointestinal disorders (1 source) Complete fecal incontinence; Translations: [Full incontinence of feces] 05-03-2024 Episodic Other gastrointestinal disorders (5 sources) Abdominal bloating; Translations: [Abdominal distension (gaseous)] 01-03-2025 Episodic Other gastrointestinal disorders (1 source) Diarrhea, unspecified; Translations: [Diarrhea, unspecified] Onset: 5 Episodic Other hereditary and degenerative nervous system conditions (20 sources) Restless legs; Translations: [Restless legs syndrome] Onset: 7 12-04-2016 Chronic Other inflammatory condition of skin (1 source) Itching of skin; Translations: [Pruritus, unspecified] Episodic Other inflammatory condition of skin (3 sources) Itching ; Translations: [Pruritus, unspecified] Episodic Other inflammatory condition of skin (5 sources) Pruritus, unspecified; Translations: [Pruritus] 10-27-2024 Episodic Other injuries and conditions due to external causes (20 sources) Closed injury of head; Translations: [Unspecified injury of head, initial encounter] 12-14-2020 Episodic Other injuries and conditions due to external causes (1 source) Finding of urine substance level; Translations: [Elevated urine levels of drugs, medicaments and biological substances] Episodic Other injuries and conditions due to external causes (20 sources) Muscle strain; Translations: [Other injury of unspecified body region, initial encounter] 08-16-2022 Episodic Other injuries and conditions due to external causes (20 sources) Contusion of multiple sites; Translations: [Unspecified multiple injuries, initial encounter] 08-16-2022 Episodic Other injuries and conditions due to external causes (4 sources) Unspecified multiple injuries, initial encounter; Translations: [Contusion of multiple sites, not elsewhere classified] Episodic Other injuries and conditions due to external causes (4 sources) Other injury of unspecified body region, initial encounter; Translations: [Unspecified site of sprain and strain] Episodic Other injuries and conditions due to external causes (2 sources) At high risk for fall; Translations: [History of falling] Episodic Other injuries and conditions due to external causes (1 source) At risk for falls ; Translations: [History of falling] Episodic Other injuries and conditions due to external causes (1 source) Injury of head; Translations: [Unspecified injury of head, initial encounter] Episodic Other injuries and conditions due to external causes (1 source) Encounter for examination and observation following other accident; Translations: [Encounter for examination and observation following other accident] Onset: Episodic Other liver diseases (20 sources) Enzyme level - finding; Translations: [Transaminasemia] 08-13-2023 Episodic Other lower respiratory disease (20 sources) Chronic respiratory insufficiency; Translations: [Other abnormalities of breathing] 08-16-2022 Episodic Comment on above: On home oxygen at [facility] Other lower respiratory disease (1 source) Other abnormalities of breathing; Translations: [Other respiratory abnormalities] Episodic Other lower respiratory disease (1 source) Productive cough ; Translations: [Productive cough] 08-13-2023 Episodic Other nervous system disorders (20 sources) Disorder of brain; Translations: [Encephalopathy, unspecified] 06-08-2019 Chronic Other nervous system disorders (20 sources) Metabolic encephalopathy; Translations: [Metabolic encephalopathy] 06-08-2019 Chronic Other nervous system disorders (7 sources) Encephalopathy, unspecified; Translations: [Encephalopathy, unspecified] 08-13-2023 Chronic Other nervous system disorders (20 sources) Toxic encephalopathy; Translations: [Toxic encephalopathy] 11-27-2018 Episodic Other non-traumatic joint disorders (1 source) Shoulder pain; Translations: [Pain in left shoulder] Episodic Other non-traumatic joint disorders (1 source) Hip pain; Translations: [Pain in left hip] Episodic Other non-traumatic joint disorders (2 sources) Pain in left knee; Translations: [Pain in joint, lower leg] Episodic Other nutritional; endocrine; and metabolic disorders (20 sources) Obese class II; Translations: [Obesity, unspecified] Onset: 8 03-20-2018 Chronic Other nutritional; endocrine; and metabolic disorders (20 sources) Alveolar hypoventilation; Translations: [Morbid (severe) obesity with alveolar hypoventilation] 04-16-2019 Chronic Other nutritional; endocrine; and metabolic disorders (4 sources) Hyperuricemia; Translations: [Hyperuricemia without signs of inflammatory arthritis and tophaceous disease] Episodic Other skin disorders (4 sources) Abnormal foot color; Translations: [Other skin changes] Episodic Other upper respiratory disease (4 sources) Hoarse; Translations: [Dysphonia] Episodic Other upper respiratory disease (3 sources) Bleeding from nose; Translations: [Epistaxis] Episodic Peripheral and visceral atherosclerosis (20 sources) Peripheral vascular disease, unspecified; Translations: [Peripheral vascular disease, unspecified] Onset: Chronic Pneumonia (except that caused by tuberculosis or sexually transmitted disease) (20 sources) Pneumonia; Translations: [Pneumonia, unspecified organism] 11-27-2018 Episodic Pulmonary heart disease (20 sources) Pulmonary hypertension; Translations: [Pulmonary hypertension, unspecified] Onset: 5 11-06-2020 Chronic Residual codes; unclassified (20 sources) Obstructive sleep apnea syndrome; Translations: [Obstructive sleep apnea (adult) (pediatric)] Onset: 2 03-03-2019 Chronic Comment on above: non-complaint with C PAP Residual codes; unclassified (1 source) Obstructive sleep apnea (adult) (pediatric); Translations: [Obstructive sleep apnea (adult)(pediatric)] Chronic Residual codes; unclassified (20 sources) Altered mental status; Translations: [Altered mental status, unspecified] 06-08-2019 Episodic Residual codes; unclassified (2 sources) Difficulty sleeping ; Translations: [Sleep disorder, unspecified] Episodic Residual codes; unclassified (1 source) Selling drugs; Translations: [Other problems related to lifestyle] Episodic Residual codes; unclassified (1 source) Chill; Translations: [Chills (without fever)] 08-13-2023 Episodic Residual codes; unclassified (1 source) Confusional state; Translations: [Disorientation, unspecified] 08-13-2023 Episodic Residual codes; unclassified (7 sources) Early satiety; Translations: [Early satiety] 10-27-2024 Episodic Respiratory failure; insufficiency; arrest (adult) (20 sources) Acute on chronic hypoxemic and hypercapnic respiratory failure; Translations: [Acute and chronic respiratory failure with hypoxia] Onset: 9 03-03-2019 Chronic Respiratory failure; insufficiency; arrest (adult) (20 sources) Acute respiratory failure; Translations: [Acute respiratory failure with hypoxia] 06-08-2019 Episodic Septicemia (except in labor) (20 sources) Septic shock; Translations: [Sepsis, unspecified organism] 11-27-2018 Episodic Skin and subcutaneous tissue infections (20 sources) Cellulitis of toe; Translations: [Cellulitis of left toe] 01-03-2023 Episodic Spondylosis; intervertebral disc disorders; other back problems (20 sources) Degeneration of lumbar intervertebral disc; Translations: [Other intervertebral disc degeneration, lumbar region] Onset: 3 03-04-2023 Chronic Spondylosis; intervertebral disc disorders; other back problems (20 sources) Chronic back pain ; Translations: [Dorsalgia, unspecified] 12-06-2019 Episodic Superficial injury; contusion (3 sources) Abrasion of left elbow, initial encounter; Translations: [Abrasion or friction burn of elbow, forearm, and wrist, without mention of infection] Episodic Thyroid disorders (20 sources) Hypothyroidism; Translations: [Hypothyroidism, unspecified] 06-24-2016 Chronic Unclassified (20 sources) Abnormal result of other cardiovascular function study; Translations: [Thallium stress test abnormal] Onset: 8 Episodic Unclassified (1 source) Unknown / UNK(Unknown) Onset: 8 Unclassified (1 source) heart cath 05-20-2007( Confirmed ) Onset: 7 05-20-2007 Unclassified (1 source) Other persistent atrial fibrillation; Translations: [Other persistent atrial fibrillation] Onset: 5 Urinary tract infections (20 sources) Urinary tract infectious disease; Translations: [Urinary tract infection, site not specified] 08-13-2023 Episodic Past or Other Problems Problem Classification Problem Date Documented Da te Episodic/Chronic Abdominal pain (2 sources) Left flank pain; Translations: [Unspecified abdominal pain] Onset: 04-25-2025 Episodic Acute bronchitis (20 sources) Acute bronchitis 06-08-2019 Conditions associated with dizziness or vertigo (20 sources) Benign paroxysmal positional vertigo; Translations: [Benign paroxysmal vertigo, unspecified ear] Onset: 11-07-2016 11-07-2016 Episodic Coronary atherosclerosis and other heart disease (20 sources) Stented coronary artery; Translations: [Presence of coronary angioplasty implant and graft] Onset: 11-21-2003 Episodic Comment on above: PCI/Stent to the pro x 1st Diag branch 12/07/2003 Diabetes mellitus without complication (11 sources) Type 2 diabetes mellitus; Translations: [Type 2 diabetes mellitus without complications] Resolved: 02-14-2017 02-14-2017 Chronic Nonspecific chest pain (20 sources) Chest pain; Translations: [Chest pain, unspecified] Onset: 02-25-2025 Episodic Nutritional deficiencies (20 sources) Iron deficiency; Translations: [Iron deficiency] Onset: 12-04-2016 12-04-2016 Episodic Other and unspecified benign neoplasm (20 sources) Tubular adenoma ; Translations: [Benign neoplasm, unspecified site] Onset: 12-05-2016 12-05-2016 Episodic Other ear and sense organ disorders (20 sources) Subjective tinnitus; Translations: [Tinnitus, unspecified ear] Onset: 06-17-2005 06-17-2005 Episodic Other gastrointestinal disorders (11 sources) Constipation; Translations: [Constipation, unspecified] Resolved: 11-02-2020 11-02-2020 Episodic Other gastrointestinal disorders (1 source) Abdominal distension (gaseous); Translations: [Abdominal distension (gaseous)] Onset: 04-15-2025 Episodic Other lower respiratory disease (11 sources) Dyspnea; Translations: [Shortness of breath] Resolved: 02-14-2017 02-14-2017 Episodic Other lower respiratory disease (11 sources) Hypercapnia; Translations: [Other abnormalities of breathing] Onset: 01-22-2018 Resolved: 11-02-2020 11-02-2020 Episodic Other nutritional; endocrine; and metabolic disorders (11 sources) Morbid obesity; Translations: [Morbid (severe) obesity due to excess calories] Resolved: 01-03-2020 01-03-2020 Chronic Phlebitis; thrombophlebitis and thromboembolism (20 sources) H/O: Deep vein thrombosis; Translations: [Personal history of other venous thrombosis and embolism] Onset: 11-19-2019 11-19-2019 Episodic Pneumonia (except that caused by tuberculosis or sexually transmitted disease) (20 sources) Pneumonia (except that caused by tuberculosis or sexually transmitted disease) 06-08-2019 Pulmonary heart disease (20 sources) H/O: pulmonary embolus; Translations: [Personal history of pulmonary embolism] Onset: 11-19-2019 11-19-2019 Episodic Residual codes; unclassified (11 sources) Sleep apnea; Translations: [Sleep apnea, unspecified] Resolved: 02-14-2017 02-14-2017 Chronic Residual codes; unclassified (1 source) Early satiety; Translations: [Early satiety] Onset: 04-15-2025 Episodic Unclassified (1 source) Encounter for preprocedural cardiovascular examination Onset: 12-16-2017 Unclassified (20 sources) Acute hypoglycemia 06-08-2019 Results Test Name Value Interpretation Reference Range Facility BMP with eGFR DAILYon 2024 AGE 70 years Normal [facility] Comment on above: Performed By: #### 2 [id number] #### [facility],[address] [place] [address]695 Anion gap [Moles/Vol] 13 mmol/L Normal 10 - 20 [facility] Comment on above: Performed By: #### 2 [id number] #### [facility],[address] [place] [address]270 BMP with eGFR DAILY Normal [facility] Comment on above: Result Comment: BASI C METABOLIC PANEL Performed By: #### 2 10192 #### [facility],[address] [place] [address] Calcium [Mass/Vol] 8.4 mg/dL Low 8.5 - 10.[address] [facility] Comment on above: Performed By: #### 2 33096 #### [address] [address] Chloride [Moles/Vol] 104 mmol/L Normal 98 - [address] [facility] Comment on above: Performed By: #### 2 [id number] #### [facility],[address] [place] [address]607 CO2 [Moles/Vol] 25.7 mmol/L Normal 21.0 - 32.[address] [facility] Comment on above: Performed By: #### 2 21713 #### [facility],[address] [place] [address] Creatinine [Mass/Vol] 0.91 mg/dL Normal 0.55 - 1.02 [facility] Comment on above: Performed By: #### 2 91461 #### [address] [address] GFR/1.73 sq M.predicted among non-blacks MDRD (S/P/Bld) [Vol rate/Area] mL/min/{1.73_m2} Normal 60 - [address] [facility] Comment on above: Performed By: #### 2 14797 #### [facility],[address] [place] [address] Result Comment: ACCO RDING TO THE NATIONAL KIDNEY DISEASE EDUCATION PROGRAM(NKDE), A NORMAL eGFR IS A VALUE GREATER THAN OR EQUAL TO 60 ML/MIN/1.73 SQ METERS. CHRONIC KIDNEY DISEASE: <60mL/MIN/1.73 SQ METERS KIDNEY FAILURE: <15mL/MIN/1.73 SQ METERS THIS TEST SHOULD ONLY BE USED FOR PATIENTS 18 YEARS OF AGE AND OLDER. Glucose [Mass/Vol] 181 mg/dL High 74 - [address] [facility] Comment on above: Performed By: #### 2 69056 #### [place] [address] Potassium [Moles/Vol] 3.8 mmol/L Normal 3.5 - 5.1 [facility] Comment on above: Performed By: #### 2 95809 #### [place] [address] Sodium [Moles/Vol] 139 mmol/L Normal 136 - [address] [facility] Comment on above: Performed By: #### 2 42790 #### [place] [address] Urea nitrogen [Mass/Vol] 14 mg/dL Normal 7 - [address] [facility] Comment on above: Performed By: #### 2 47153 #### [place] [id number] CBC DAILYon 05-17-2025 Baso # 0.01 x10EE3/UL Normal 0.00 - 0.[address] [facility] Comment on above: Performed By: #### 2 96285 ####[place] [address]204 Basophils/100 WBC (Bld) 0.1 % Normal 0.0 - 2.0 [facility] Comment on above: Performed By: #### 2 46407 ####[address] [address] EO # 0.25 x10EE3/UL Normal 0.00 - 0.[address] [facility] Comment on above: Performed By: #### 2 88546 ####[facility],[address] [place] [address]457 Eosinophils/100 WBC (Bld) 3.4 % Normal 0.0 - 7.[address] [facility] Comment on above: Performed By: #### 2 95803 ####[facility],[address] [place] [address] Erythrocyte distribution width (RBC) [Ratio] 14.8 % Normal 12.0 - 15.[address] [facility] Comment on above: Performed By: #### 2 64217 ####[facility],[address] [place] [address] Hematocrit (Bld) [Volume fraction] 32.3 % Low 34.0 - 46.[address] [facility] Comment on above: Performed By: #### 2 87353 ####[facility],[address] [place] [address] Hemoglobin (Bld) [Mass/Vol] 10.9 g/dL Low 12.0 - 16.[address] [facility] Comment on above: Performed By: #### 2 98083 ####[facility],[address] [place] [address] Lymph # 1.03 x10EE3/UL Normal 0.80 - 2.[address] [facility] Comment on above: Performed By: #### 2 72316 ####[facility],[address] [place] [address] Lymphocytes/100 WBC (Bld) 13.7 % Low 20.0 - 45.[address] [facility] Comment on above: Performed By: #### 2 19525 ####[facility],[address] [place], [place] [id number] MANUAL DIFF N/A Normal [facility] Comment on above: Performed By: #### 2 83240 ####[facility],[address] [place] [address] MCH (RBC) [Entitic mass] 30 pg Normal 27 - [address] [facility] Comment on above: Performed By: #### 2 37904 ####[facility],[address] [place] [address] MCHC 34 X10 3 Normal 32 - [address] [facility] Comment on above: Performed By: #### 2 88791 ####[facility],[address] [place] [address] MCV (RBC) [Entitic vol] 91 fL Normal 80 - 99 [facility] Comment on above: Performed By: #### 2 45590 ####[facility],[address] [place] [address] Winn # 0.53 x10EE3/UL Normal 0.20 - 1.[address] [facility] Comment on above: Performed By: #### 2 33839 ####[facility],[address] [place] [address] MONOS % 7.0 % Normal 0.0 - 10.[address] [facility] Comment on above: Performed By: #### 2 02040 ####[facility],[address] [place] [address] Morphology Prashanth (Bld) [Interp] N/A Normal [facility] Comment on above: Performed By: #### 2 78311 ####[facility],[address] [place] [address] Neut # 5.68 x10EE3/UL Normal 1.50 - 7.[address] [facility] Comment on above: Performed By: #### 2 18277 ####[facility],[address] [place] [address] Neutrophils/100 WBC (Bld) 75.8 % Normal 46.0 - 76.[address] [facility] Comment on above: Performed By: #### 2 49380 ####[facility],[address] [place] [address]75[address] PLATELET 141 x10EE3/UL Low 150 - [address] [facility] Comment on above: Performed By: #### 2 32959 ####[facility],[address] [place] [address] Platelet mean volume (Bld) [Entitic vol] 8.8 fL Normal 6.6 - 10.[address] [facility] Comment on above: Result Comment: AUTO MATED DIFFERENTIAL Performed By: #### 2 01589 ####[facility],[address] [place] [address] 72665 RBC 3.57 x 10EE6/UL Low 4.10 - 5.[address] [facility] Comment on above: Performed By: #### 2 54983 ####[facility],[address] [place] [address]3561 WBC 7.5 x 10EE3/UL Normal 4.5 - 10.[address] [facility] Comment on above: Performed By: #### 2 19150 ####[facility],[address] [place] [address]7785 BMP with eGFR DAILYon 2024 AGE 70 years Normal [facility] Comment on above: Performed By: #### 2 30808 #### [facility],[address] [place] [address] Anion gap [Moles/Vol] 11 mmol/L Normal 10 - 20 [facility] Comment on above: Performed By: #### 2 42703 #### [facility],[address] [place] [address] 22286 BMP with eGFR DAILY Normal [facility] Comment on above: Result Comment: BASI C METABOLIC PANEL Performed By: #### 2 60026 #### [facility],[address] [place] [address]154 Calcium [Mass/Vol] 8.2 mg/dL Low 8.5 - 10.[address] [facility] Comment on above: Performed By: #### 2 63239 #### [facility],[address] [place] [address] Chloride [Moles/Vol] 105 mmol/L Normal 98 - [address] [facility] Comment on above: Performed By: #### 2 27675 #### [facility] [facility],[address] [place] [address] 76378 CO2 [Moles/Vol] 27.9 mmol/L Normal 21.0 - 32.[address] [facility] Comment on above: Performed By: #### 2 48843 #### [facility],[address] [place] [address] 53234 Creatinine [Mass/Vol] 0.83 mg/dL Normal 0.55 - 1.02 [facility] Comment on above: Performed By: #### 2 75418 #### [facility],[address] [place] [address] 61211 GFR/1.73 sq M.predicted among non-blacks MDRD (S/P/Bld) [Vol rate/Area] mL/min/{1.73_m2} Normal 60 - [address] [facility] Comment on above: Performed By: #### 2 18039 #### [facility],[address] [place] [address] 25027 Result Comment: ACCO RDING TO THE NATIONAL KIDNEY DISEASE EDUCATION PROGRAM(NKDE), A NORMAL eGFR IS A VALUE GREATER THAN OR EQUAL TO 60 ML/MIN/1.73 SQ METERS. CHRONIC KIDNEY DISEASE: <60mL/MIN/1.73 SQ METERS KIDNEY FAILURE: <15mL/MIN/1.73 SQ METERS THIS TEST SHOULD ONLY BE USED FOR PATIENTS 18 YEARS OF AGE AND OLDER. Glucose [Mass/Vol] 187 mg/dL High 74 - [address] [facility] Comment on above: Performed By: #### 2 05173 #### [facility],[address] [place] [address] 08772 Potassium [Moles/Vol] 3.4 mmol/L Low 3.5 - 5.1 [facility] Comment on above: Performed By: #### 2 93089 #### [facility],[address] [place] [address] 29808 Sodium [Moles/Vol] 140 mmol/L Normal 136 - [address] [facility] Comment on above: Performed By: #### 2 55762 #### [facility],[address] [place], [place] [address] Urea nitrogen [Mass/Vol] 14 mg/dL Normal 7 - [address] [facility] Comment on above: Performed By: #### 2 97762 #### [facility],[address] [place] [address] 63908 CBC DAILYon 05-16-2025 Baso # 0.01 x10EE3/UL Normal 0.00 - 0.[address] [facility] Comment on above: Performed By: #### 2 02518 ####[facility],[address] [place] [address] 75346 Basophils/100 WBC (Bld) 0.1 % Normal 0.0 - 2.0 [facility] Comment on above: Performed By: #### 2 72772 ####[facility],[address] [place] [address] 84516 EO # 0.12 x10EE3/UL Normal 0.00 - 0.[address] [facility] Comment on above: Performed By: #### 2 86495 ####[facility],[address] [place] [address] 75732 Eosinophils/100 WBC (Bld) 1.4 % Normal 0.0 - 7.[address] [facility] Comment on above: Performed By: #### 2 23371 ####[facility],[address] [place] [address] 62375 Erythrocyte distribution width (RBC) [Ratio] 15.5 % Normal 12.0 - 15.[address] [facility] Comment on above: Performed By: #### 2 29478 ####[facility],[address] [place], [place] [address] Hematocrit (Bld) [Volume fraction] 32.5 % Low 34.0 - 46.[address] [facility] Comment on above: Performed By: #### 2 86614 ####[facility],[address] [place] [address] Hemoglobin (Bld) [Mass/Vol] 11.0 g/dL Low 12.0 - 16.[address] [facility] Comment on above: Performed By: #### 2 66218 ####[facility],[address] [place] [address] Lymph # 0.94 x10EE3/UL Normal 0.80 - 2.[address] [facility] Comment on above: Performed By: #### 2 84293 ####[facility],[address] [place] [address] Lymphocytes/100 WBC (Bld) 10.6 % Low 20.0 - 45.[address] [facility] Comment on above: Performed By: #### 2 23893 ####[facility],[address] [place] [address] MANUAL DIFF N/A Normal [facility] Comment on above: Performed By: #### 2 68806 ####[facility],[address] [place] [address] MCH (RBC) [Entitic mass] 31 pg Normal 27 - [address] [facility] Comment on above: Performed By: #### 2 74337 ####[facility],[address] [place] [address] MCHC 34 X10 3 Normal 32 - [address] [facility] Comment on above: Performed By: #### 2 35128 ####[facility],[address] [place], [place] [address] MCV (RBC) [Entitic vol] 91 fL Normal 80 - 99 [facility] Comment on above: Performed By: #### 2 92765 ####[facility],[address] [place] [address] Winn # 0.46 x10EE3/UL Normal 0.20 - 1.[address] [facility] Comment on above: Performed By: #### 2 31996 ####[facility],[address] [place] [address] 59079 MONOS % 5.3 % Normal 0.0 - 10.[address] [facility] Comment on above: Performed By: #### 2 08265 ####[facility],[address] [place] [address] Morphology Prashanth (Bld) [Interp] N/A Normal [facility] Comment on above: Performed By: #### 2 26823 ####[facility],[address] [place] [address] Neut # 7.27 x10EE3/UL High 1.50 - 7.[address] [facility] Comment on above: Performed By: #### 2 68138 ####[place] [address] Neutrophils/100 WBC (Bld) 82.7 % High 46.0 - 76.[address] [facility] Comment on above: Performed By: #### 2 40979 ####[place] [address] PLATELET 133 x10EE3/UL Low 150 - [address] [facility] Comment on above: Performed By: #### 2 32749 ####[facility],[address] [place] [address] Platelet mean volume (Bld) [Entitic vol] 8.9 fL Normal 6.6 - 10.[address] [facility] Comment on above: Result Comment: AUTO MATED DIFFERENTIAL Performed By: #### 2 20542 ####[place] [address] RBC 3.57 x 10EE6/UL Low 4.10 - 5.[address] [facility] Comment on above: Performed By: #### 2 10144 ####[facility],[address],[place] [address] WBC 8.8 x 10EE3/UL Normal 4.5 - 10.[address] [facility] Comment on above: Performed By: #### 2 95691 ####[facility],[address] [place] [address] 31262 BMP with eGFR DAILYon 2024 AGE 70 years Normal [facility] Comment on above: Performed By: #### 2 25399 #### [facility],[address] [place] [address] 45469 Anion gap [Moles/Vol] 13 mmol/L Normal 10 - 20 [facility] Comment on above: Performed By: #### 2 95413 #### [facility],[address] [place] [address] 90649 BMP with eGFR DAILY Normal [facility] Comment on above: Result Comment: BASI C METABOLIC PANEL Performed By: #### 2 89278 #### [facility],[address] [place] [address] 35919 Calcium [Mass/Vol] 8.0 mg/dL Low 8.5 - 10.[address] [facility] Comment on above: Performed By: #### 2 68500 #### [facility],[address] [place] [address] 33591 Chloride [Moles/Vol] 108 mmol/L High 98 - [address] [facility] Comment on above: Performed By: #### 2 72551 #### [facility],[address] [place] [address] 05366 CO2 [Moles/Vol] 26.2 mmol/L Normal 21.0 - 32.[address] [facility] Comment on above: Performed By: #### 2 67918 #### [facility],[address] [place] [address] 57964 Creatinine [Mass/Vol] 0.94 mg/dL Normal 0.55 - 1.02 [facility] Comment on above: Performed By: #### 2 60185 #### [facility],[address] [place] [address] 54391 eGFR 59 ML/MINUTE Low 60 - [address] [facility] Comment on above: Performed By: #### 2 57319 #### [address] [address] GFR/1.73 sq M.predicted among non-blacks MDRD (S/P/Bld) [Vol rate/Area] mL/min/{1.73_m2} Normal 60 - [address] [facility] Comment on above: Result Comment: ACCO RDING TO THE NATIONAL KIDNEY DISEASE EDUCATION PROGRAM(NKDE), A NORMAL eGFR IS A VALUE GREATER THAN OR EQUAL TO 60 ML/MIN/1.73 SQ METERS. CHRONIC KIDNEY DISEASE: <60mL/MIN/1.73 SQ METERS KIDNEY FAILURE: <15mL/MIN/1.73 SQ METERS THIS TEST SHOULD ONLY BE USED FOR PATIENTS 18 YEARS OF AGE AND OLDER. Performed By: #### 2 36741 #### [address] [address] Glucose [Mass/Vol] 156 mg/dL High 74 - [address] [facility] Comment on above: Performed By: #### 2 27740 #### [address] [address] Potassium [Moles/Vol] 3.7 mmol/L Normal 3.5 - 5.1 [facility] Comment on above: Performed By: #### 2 81393 #### [address] [address] Sodium [Moles/Vol] 143 mmol/L Normal 136 - [address] [facility] Comment on above: Performed By: #### 2 84948 #### [address] [address] Urea nitrogen [Mass/Vol] 16 mg/dL Normal 7 - [address] [facility] Comment on above: Performed By: #### 2 58183 #### [address] [address] CBC DAILYon 05-15-2025 Baso # 0.01 x10EE3/UL Normal 0.00 - 0.[address] [facility] Comment on above: Performed By: #### 2 33019 ####[facility],[address] [place] [address] Basophils/100 WBC (Bld) 0.1 % Normal 0.0 - 2.0 [facility] Comment on above: Performed By: #### 2 10087 ####[facility],[address] [place] [address] EO # 0.07 x10EE3/UL Normal 0.00 - 0.[address] [facility] Comment on above: Performed By: #### 2 18553 ####[facility],[address] [place] [address] Eosinophils/100 WBC (Bld) 0.7 % Normal 0.0 - 7.[address] [facility] Comment on above: Performed By: #### 2 96005 ####[facility],[address] [place] [address] Erythrocyte distribution width (RBC) [Ratio] 14.6 % Normal 12.0 - 15.[address] [facility] Comment on above: Performed By: #### 2 54722 ####[facility],[address] [place] [address] Hematocrit (Bld) [Volume fraction] 37.2 % Normal 34.0 - 46.[address] [facility] Comment on above: Performed By: #### 2 04330 ####[facility],[address] [place] [address] Hemoglobin (Bld) [Mass/Vol] 12.6 g/dL Normal 12.0 - 16.[address] [facility] Comment on above: Result Comment: TEST REPEATED Performed By: #### 2 11131 ####[facility],[address] [place], [place] [address] Lymph # 1.43 x10EE3/UL Normal 0.80 - 2.[address] [facility] Comment on above: Performed By: #### 2 26529 ####[facility],[address] [place] [address] 30273 Lymphocytes/100 WBC (Bld) 13.8 % Low 20.0 - 45.[address] [facility] Comment on above: Performed By: #### 2 10280 ####[facility],[address] [place] [address] 19352 MANUAL DIFF N/A Normal [facility] Comment on above: Performed By: #### 2 03039 ####[facility],[address] [place] [address] MCH (RBC) [Entitic mass] 30 pg Normal 27 - [address] [facility] Comment on above: Performed By: #### 2 40190 ####[facility],[address] [place] [address] MCHC 34 X10 3 Normal 32 - [address] [facility] Comment on above: Performed By: #### 2 29249 ####[facility],[address] [place] [address] 82599 MCV (RBC) [Entitic vol] 89 fL Normal 80 - 99 [facility] Comment on above: Performed By: #### 2 51944 ####[facility],[address] [place] [address] Winn # 0.64 x10EE3/UL Normal 0.20 - 1.[address] [facility] Comment on above: Performed By: #### 2 17035 ####[facility],[address] [place] [address] 26056 MONOS % 6.1 % Normal 0.0 - 10.[address] [facility] Comment on above: Performed By: #### 2 74582 ####[facility],[address] [place] [address] 81890 Morphology Prashanth (Bld) [Interp] N/A Normal [facility] Comment on above: Performed By: #### 2 77750 ####[facility],[address] [place] [address] 42875 Neut # 8.25 x10EE3/UL High 1.50 - 7.[address] [facility] Comment on above: Performed By: #### 2 71225 ####[facility],[address] [place] [address] 17316 Neutrophils/100 WBC (Bld) 79.3 % High 46.0 - 76.[address] [facility] Comment on above: Performed By: #### 2 76146 ####[facility],[address] [place] [address] 14834 PLATELET 105 x10EE3/UL Low 150 - [address] [facility] Comment on above: Performed By: #### 2 08132 ####[facility],[address] [place] [address] 22456 Platelet mean volume (Bld) [Entitic vol] 8.6 fL Normal 6.6 - 10.[address] [facility] Comment on above: Result Comment: AUTO MATED DIFFERENTIAL Performed By: #### 2 87361 ####[facility],[address] [place] [address] 10420 RBC 4.19 x 10EE6/UL Normal 4.10 - 5.[address] [facility] Comment on above: Performed By: #### 2 30900 ####[facility],[address] [place] [address] 36732 WBC 10.4 x 10EE3/UL Normal 4.5 - 10.[address] [facility] Comment on above: Performed By: #### 2 13763 ####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 Medication Ordered Medication Administration Date/Time Albuterol-Ipratropiu 13:03 05/14 Albuterol-Ipratropium (DuoNeb) 3mg/0.5mg Neb Tx 3 Given m (DuoNeb) mL given. Given by the respiratory therapist. Allergies verified. 13:03 05/14/2025 3mg/0.5mg Neb Tx Information reviewed with patient. - 13:03 Shan Sierra, R.R.T. Shan Sierra, 3 mL (NOW x1) R.R.T. Scanned Albuterol-Ipratropiu 13:03 05/14 Albuterol-Ipratropium (DuoNeb) 3mg/0.5mg Neb Tx 3 Given m (DuoNeb) mL given. - 13:05 Shan Sierra, R.R.T. 13:03 05/14/2025 3mg/0.5mg Neb Tx Shan Sierra, 3 mL (NOW x1) R.R.T. Scanned 1 of 3 Bedspring Assembler - TAMAI PANDA, : 1955, , Medication Ordered Medication [...] administration. - 13:15 Clifford Davis R.N. Azithromycin 13:11 05/14 Azithromycin (Zithromax) IVPB 500 mg started at 250 Started (Zithromax) IVPB mL/hr diluted in sodium chloride IVPB 0.9 % 250 mL via Site# 2. 13:11 05/14/2025 500 mg diluted in Allergies verified and confirmed 5 rights. Via IV pump. IV patency Clifford Davis R.N. sodium chloride established. IV site checked: no [...] taking this medication. - 14:00 05/14/2025 12:59 Augusta Echols R.N. Scanned 14:05/14 Medication Discontinued: bag #1 infused. Total amount infused: 1000 mL. - 07:20 Clifford Davis R.N. 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 3 of [address] [facility] ED NURSES CLINICAL NOTEon ED NURSES CLINICAL NOTE Nurse Narrative - TAMIA PANDA, : 1955, , Nurse Clinical Narrative [address] [address] [id number] 05/14/2025 12:09:00 Patient: TAMIA PANDA Sex: Female : 1955 Age: 70y Disposition: Admit to [facility] Disposition Decision Time: 15:38 05/14/2025 Departure Time: 16:40 05/14/2025 TRIAGE Arrived by EMS. Historian: (patient). Triage time: 12:13 05/14/2025. Acuity: LEVEL 2. Chief Complaint: (pain everywhere). This started today. SEPSIS SCREEN: POSITIVE. SIRS criteria positive. Possible sources of infection. Provider notified, sepsis guidelines implemented and continue to assess for severe sepsis. -- 12:20 05/14/25 EDT Clifford Davis R.N. 12:20 05/14/25. BP: 116/39 MAP: 65. HR: 112. RR: 36. O2 saturation: 78% on room air. Temperature: 98.4 F. Pain level now 8/10. -- 12:20 05/14/25 EDT Clifford Davis R.N. Measurements: 12:19 05/14/25 Wt: 73.5 kg, Ht/Laith: 61.0 in, BMI: 30.61 -- 12:19 05/14/25 ALEXANDREAT Clifford Davis R.N. Medications: amlodipine 5 mg tablet -- 12:36 05/14/25 EDT Romulo Ryan R.N. atorvastatin 40 mg tablet -- 12:36 05/14/25 EDT Romulo Ryan R.N. omeprazole 40 mg capsule,delayed release -- 12:36 05/14/25 EDT Romulo Ryan R.N. levothyroxine 88 mcg tablet -- 12:36 05/14/25 EDT Romulo Ryan R.N. [address] [place] [address] TAMIA Gibson, : 1955, , metoprolol tartrate 50 mg tablet -- 12:36 05/14/25 EDT Romulo Ryan R.N. buspirone 10 mg tablet -- 12:36 05/14/25 EDT Romulo Ryan R.N. duloxetine 60 mg capsule,delayed release -- 12:36 05/14/25 EDT Romulo Ryan R.N. Trelegy Ellipta 100 mcg-62.5 mcg-25 mcg powder for inhalation -- 12:36 05/14/25 EDT Romulo Ryan R.N. Eliquis 5 mg tablet -- 12:36 05/14/25 EDT Romulo Ryan R.N. pt unsure of frequency. unable to find in erx -- 12:37 05/14/25 ALEXANDREAT Romulo Ryan R.N. Allergies: Unable to state. -- 12:16 05/14/25 ALEXANDREAT Clifford Davis R.N. Problems: Hypertension -- 12:16 05/14/25 ALEXANDREAT Clifford Davis R.N. Hyperlipidemia -- 12:16 05/14/25 EDT Clifford Davis R.N. Coronary Artery Disease -- 12:16 05/14/25 ALEXANDREAT Clifford Davis R.N. Atrial Fibrillation -- 12:16 05/14/25 JOHN Davis R.N. Congestive Heart Failure -- 12:16 05/14/25 JOHN Davis R.N. Hypothyroidism -- 12:05/14/25 JOHN Davis R.N. Gastroesophageal Reflux Disease -- 12:05/14/25 JOHN Davis R.N. Depression -- 12:05/14/25 JOHN Davis R.N. Surgeries: Placement of stent in coronary artery -- 12:05/14/25 JOHN Davis R.N. Hysterectomy -- 12:05/14/25 JOHN Davis R.N. History 12:05/14/25. SOCIAL HX: Never [...] a fall risk by ID band. -- 12:20 05/14/25 JOHN Davis R.N. Interventions 12:05/14/25. To room. Advanced care plan discussed with family. Patient does not have advanced directive. -- 12:05/14/25 JOHN Davis R.N. PHYSICAL ASSESSMENT 13:28 05/14/25. To [...] dry. Poor skin turgor. -- 13:28 05/14/25 EDT Clifford Davis R.N. NURSING PROGRESS NOTES 12:21 05/14/25. Site #1 started in the left antecubital space with an 18g needle with aseptic technique and good blood return; 1 attempt. Blood drawn: rainbow set and urban tube(s) and cultures x 1. Saline lock flushed with 10 mL saline. -- 12:23 05/14/25 EDT Clifford Davis R.N. 12:51 05/14/25. URINARY CATHETER: 16 fr maradiaga catheter placed in ED by me and assisted by one tech. Reason for catheter: critical need to monitor intake and output (more content not included)... Normal [facility] ED ORDER SHEET (CPOE ONLY)on 05-15-2025 ED ORDER SHEET (CPOE ONLY) Order Sheet - TAMIA PANDA, : 1955, , Order Sheet [address] [address] [id number] 05/14/2025 Patient: TAMIA PANDA Sex: Female : 1955 Age: 70y MEASUREMENTS: Wt: 73.5 kg, Ht/Laith: 61.0 in, BMI: 30.61 ALLERGIES: Unable to state. MEDICATION/IV/DRIP/FLUID ORDERS Order Description Priority Entered Acknowledged Completed Albuterol-Ipratropium (DuoNeb) 12:34 05/14/2025 12:52 13:03 3mg/0.5mg Neb Tx3 mL (NOW Chente Sierra, 05/14/2025 05/14/2025 x1) Shan Benoit R.N. R.R.T. Albuterol-Ipratropium (DuoNeb) 12:34 05/14/2025 12:52 13:05 3mg/0.5mg Neb Tx3 mL (NOW Chente Sierra, 05/14/2025 05/14/2025 x1) Shan Benoit, IsidoroN. R.R.TMagda Reason for ordering with alerts: Benefits outweigh risks --12:34 05/14/2025 Chente Sierra D.O. CefTRIAXone (Rocephin) IVPB 12:43 05/14/2025 12:52 12:58 2gm/50ml NS2 g diluted in Chente Sierra, 05/14/2025 05/14/2025 sodium chloride IVPB 0.9 % D.OClifford Morrow, Minibag+ 50 mL at 100 mL/hr R.N. R.N. (NOW x1) Azithromycin (Zithromax) 12:43 05/14/2025 12:52 13:14 [id number] mg diluted in sodium Chente Sierra, 05/14/2025 05/14/2025 chloride IVPB 0.9 % 250 mL at D.O. Clifford Echols, 1 of 4 Order Sheet - TAMIA PANDA, : 1955, , 250 mL/hr (NOW x1) R.N. R.N. IV NS 0.9 %1000 mL at 999 [...] ordering with alerts: Benefits outweigh risks --15:04 05/14/2025Uriel Sierra D.O. LAB ORDERS Order Description Priority [...] R.N. Lemasters, D.O. 2 of 4 Order [facility] TAMIA PANDA, : 1955, , CMP Stat Stat 12:17 05/14/2025 12:50 05/14/2025 12:51 05/14/2025 Augusta Javier R.N. Lemasters, D.O. Blood Culture Stat 12:17 05/14/2025 12:50 05/14/2025 12:51 05/14/2025 [Nancy] # 1 Stat Augusta Javier R.N. Lemasters, D.O. Blood Culture Stat 12:17 05/14/2025 12:50 05/14/2025 16:40 05/14/2025 [Nancy] # 2 Stat Augusta Javier R.N. Lemasters, D.O. Urinalysis Stat Stat 12:17 05/14/2025 12:50 05/14/2025 16:40 05/14/2025 ChenteAugusta Duran R.N. Lemasters, D.O. Flu Swab (Influenzae Stat 12:17 05/14/2025 12:50 05/14/2025 12:51 05/14/2025 AAg) Stat Augusta Javier R.N. Lemasters, D.O. Rapid COVID (SARS) Stat 12:17 05/14/2025 12:50 05/14/2025 16:40 05/14/2025 ANTIGEN TEST Stat Augusta Javier R.N. Lemasters, D.O. DIAGNOSTIC STUDY ORDERS Order Description Priority Entered Acknowledged Completed Chest 1V Stat Stat 12:17 05/14/2025 12:50 12:51 Chente Sierra, 05/14/2025 05/14/2025 Clifford Benoit R.N. R.N. Reason for Study: Shortness of Breath 3 of 4 Order Sheet - TAMIA PANDA, : 1955, , STAFF ORDERS Order Description Priority Entered Acknowledged Collected Completed Ntfy if Abnml Vitals 12:17 05/14/2025 12:50 05/14/2025 12:51 05/14/2025 Augusta Javier R.N. Lemasters, D.O. Captain Waiter 12:17 05/14/2025 12:50 05/14/2025 12:51 05/14/2025 Augusta Javier R.N. Lemasters, D.O. IO 12:17 05/14/2025 12:50 05/14/2025 12:51 05/14/2025 Augusta Javier R.N. Lemasters, D.O. ABG- Notify RT 12:17 05/14/2025 12:50 05/14/2025 12:51 05/14/2025 Augusta Javier R.N. Lemasters, D.O. [Electronically signed by Chente Sierra D.O. (05/14/2025 18:22 EDT)] 4 of [address] [facility] ED PHYSICIAN CLINICAL REPORT on 05-15-2025 ED PHYSICIAN CLINICAL REPORT Narrative - TAMIA PANDA, : 1955, , Physician Clinical Narrative [place] [id number] [place] [address] [id number] 05/14/2025 12:09:00 Patient: TAMIA PANDA Sex: Female : 1955 Age: 70y Disposition: Admit to [facility] Disposition Decision Time: 15:38 05/14/2025 Departure [...] vomiting or abdominal pain. 1 of 13 Narrative - TAMIA PANDA, : 1955, , PAST [...] 4.10 - 5.30 Final EDT 3 of 13 TAMIA Gibson, : 1955, , 05/14/2025 12:45 HEMOGLOBIN 15.1 [...] 0.2 % 0.0 - 2.0 Final EDT of Candy TAMIA PANDA, : 1955, , 0.79 x10/UL 05/14/2025 12:45 Lymph # 0.80 - 2.80 Final Below low normal EDT 7.24 x10/UL 05/14/2025 12:45 Neut # 1.50 - 7.10 Final Above high normal EDT 05/14/2025 12:45 Winn # 0.53 x10/UL 0.20 - 1.00 Final EDT 05/14/2025 12:45 EO # 0.04 x10/UL 0.00 - 0.50 Final EDT 05/14/2025 12:45 Baso # 0.01 x10/UL 0.00 - 0.10 Final EDT 05/14/2025 12:45 MANUAL DIFF N/A New Order EDT 05/14/2025 12:45 MORPHOLOGY N/A New Order EDT CMP with eGFR Final JOAQUÍN: 05/14/2025 12:20:00 EDT MsgRcvd: 05/14/2025 13:02 EDT [place] (more content not included)... Normal [facility] ED SUPER BILLon 05-15-2025 ED SUPER BILL TAMIA Gibson, : 1955, , [address] [place] [address] [id number] 05/14/2025 Patient: TAMIA PANDA Sex: Female : 1955 Age: 70y Item Facility Professional Category Description Code Code Quantity Fee Total Drugs Normal Saline 651174 2 $0.00 $0.00 1000cc (879594) Nurse/E/M EMERGENCY 249934 1 $0.00 $0.00 DEPARTMENT VISIT HIGH/URGENT SEVERITY (13147-52) Nurse/IV/IM/Infusions Drip/IVPB initial 357654 2 $0.00 $0.00 (30066) Nurse/IV/IM/Infusions Hydration 613038 2 $0.00 $0.00 additional hour (05901) Nurse/Procedures Respiratory 168199 1 $0.00 $0.00 therapy - inhalation (20123) Nurse/Supplies Oxygen in the 856281 1 $0.00 $0.00 ED (545926) 1 of 2 TAMIA Gibson, : 1955, , Item Facility Professional Category Description Code Code Quantity Fee Total Physician/Procedures Maradiaga catheter 367468 1 $0.00 $0.00 (16183) Grand Total $0.00 Providers Chente Sierra D.O. Chief Complaint DYSPNEA and HISTORY OF CHRONIC OBSTRUCTIVE PULMONARY DISEASE. Principal Diagnosis Sepsis. Pneumonia. Urinary tract infection. ICD-10 Codes J18.9: Pneumonia, unspecified organism A41.9: Sepsis, unspecified organism N39.0: Urinary tract infection, site not specified 2 of 2 [facility] ED VISIT SUMMARYon ED VISIT SUMMARY Visit Yahaira - TAMIA COLLADO, : 1955, , Visit [place] [address] [place] [address] [id number] 05/14/2025 Patient: TAMIA PANDA Sex: Female : [...] SEPSIS URINARY TRACT INFECTION 4 of [address] [facility] ED VITALS FLOW SHEETon 05-15 ED VITALS FLOW SHEET Vitals - MAYURI PANDA, : 1955, , Vital Sign Flow Sheet [address] [address] [id number] 05/14/2025 Patient: TAMIA PANDA Sex: Female : [...] 107 90% 2 of 4 Vitals - TAMIA PANDA, : [...] RA 98.4 F 8 4 of [address] [facility] MAGNESIUMon 05-15-2025 Magnesium [Mass/Vol] 2.1 mg/dL Normal 1.8 - 2.[address] [facility] Comment on above: Performed By: #### 2 70898 #### [facility],[address] [place] [address] Bacteria Ur Culton Bacteria identified Cx Nom (U) ORGANISM ID: 1 >=100,000 CFU/ml Escherichia coli Extended-spectrum beta-lactamase (ESBL) production detected in this isolate. ESBL producing strains are considered resistant to all cephalosporins, penicillins, and aztreonam. ORGANISM ID: 2 >=100,000 CFU/ml Lactobacillus species Normal urogenital mario. No further workup. ORGANISM ID: 1 (ESCHERICHIA COLI) ANTIBIOTIC INTERPRETATION EJZ STATUS REFERENCE RANGE Ampicillin R >=32 F Susceptible <=8 , [...] <=32 , Intermediate >32 , Resistant >64 Abnormal [facility] Comment on above: Performed By: #### 6 30-4 #### [facility] CLIA [id number] [address] [place] [address] [place] CBC + DIFFon 05-14-2025 Baso # 0.01 x10EE3/UL Normal 0.00 - 0.[address] [facility] Comment on above: Performed By: #### 2 27963 #### [facility],[address] [place] [address] Basophils/100 WBC (Bld) 0.2 % Normal 0.0 - 2.0 [facility] Comment on above: Performed By: #### 2 27621 #### [facility],[address] [place] [address] CBC + DIFF Normal [facility] Comment on above: Result Comment: CBC- COMPLETE BLOOD COUNT Performed By: #### 2 81504 #### [facility],[address] [place] [address] EO # 0.04 x10EE3/UL Normal 0.00 - 0.[address] [facility] Comment on above: Performed By: #### 2 69219 #### [facility],[address] [place] [address] Eosinophils/100 WBC (Bld) 0.5 % Normal 0.0 - 7.[address] [facility] Comment on above: Performed By: #### 2 11012 #### [facility],[address] [place] [address] Erythrocyte distribution width (RBC) [Ratio] 14.9 % Normal 12.0 - 15.[address] [facility] Comment on above: Performed By: #### 2 40420 #### [facility],[address] [place] [address] Hematocrit (Bld) [Volume fraction] 43.0 % Normal 34.0 - 46.[address] [facility] Comment on above: Performed By: #### 2 95286 #### [facility],[address] [place] [address] Hemoglobin (Bld) [Mass/Vol] 15.1 g/dL Normal 12.0 - 16.[address] [facility] Comment on above: Performed By: #### 2 49128 #### [facility],[address] [place] [address] Lymph # 0.79 x10EE3/UL Low 0.80 - 2.[address] [facility] Comment on above: Performed By: #### 2 18601 #### [facility],[address] [place] [address] Lymphocytes/100 WBC (Bld) 9.1 % Low 20.0 - 45.[address] [facility] Comment on above: Performed By: #### 2 60777 #### [facility],[address] [place] [address] MANUAL DIFF N/A Normal [facility] Comment on above: Performed By: #### 2 52517 #### [place] [address] MCH (RBC) [Entitic mass] 32 pg Normal 27 - [address] [facility] Comment on above: Performed By: #### 2 36235 #### [place] [address] MCHC 35 X10 3 Normal 32 - [address] [facility] Comment on above: Performed By: #### 2 94238 #### [place] [address] MCV (RBC) [Entitic vol] 90 fL Normal 80 - 99 [facility] Comment on above: Performed By: #### 2 47657 #### [facility],[address] [place] [address] Winn # 0.53 x10EE3/UL Normal 0.20 - 1.[address] [facility] Comment on above: Performed By: #### 2 71214 #### [place] [address] MONOS % 6.1 % Normal 0.0 - 10.[address] [facility] Comment on above: Performed By: #### 2 12042 #### [facility],[address] [place] [address] Morphology Prashanth (Bld) [Interp] N/A Normal [facility] Comment on above: Performed By: #### 2 31198 #### [facility],[address] [place] [address] Neut # 7.24 x10EE3/UL High 1.50 - 7.[address] [facility] Comment on above: Performed By: #### 2 12465 #### [address] [address] Neutrophils/100 WBC (Bld) 84.1 % High 46.0 - 76.[address] [facility] Comment on above: Performed By: #### 2 76773 #### [address] [address] PLATELET 149 x10EE3/UL Low 150 - [address] [facility] Comment on above: Performed By: #### 2 31134 #### [address] [address] Platelet mean volume (Bld) [Entitic vol] 8.2 fL Normal 6.6 - 10.[address] [facility] Comment on above: Result Comment: AUTO MATED DIFFERENTIAL Performed By: #### 2 05040 #### [address] [address] RBC 4.77 x 10EE6/UL Normal 4.10 - 5.[address] [facility] Comment on above: Performed By: #### 2 11947 #### [facility],[address] [place] [address] WBC 8.6 x 10EE3/UL Normal 4.5 - 10.[address] [facility] Comment on above: Performed By: #### 2 15405 #### [address] [address] CHEST 1 VIEWon 05-14-2025 CHEST 1 VIEW [place] [address] Patient: TAMIA PANDA Phone#: : 1955 Age: 70 Gender: F Pt. Type: ER Account: [id number] Location: [id number] Ordering: CHENTE SIERRA Exam Date: 05/14/2025/12:19 Family Phys: DYLON MURRIETA Charge Code: [id number] Physician: Cottle Order #: [id number] Dose#: PROCEDURE: X-RAY CHEST 1 VIEW COMPARISON: [...] Gini Ray MD on 05/14/2025 at 23:[address] [facility] CMP with eGFRon 05-14-2025 AGE 70 years Normal [facility] Comment on above: Performed By: #### 2 11733 #### [facility],[address] [place] [address] Albumin [Mass/Vol] 2.9 g/dL Low 3.4 - 5.[address] [facility] Comment on above: Performed By: #### 2 58464 #### [facility],[address] [place] [address] Albumin/Globulin [Mass ratio] 0.7 {ratio} Low 0.9 - 1.[address] [facility] Comment on above: Performed By: #### 2 32078 #### [facility],[address] [place] [address] ALK PHOS 85 U/L Normal 46 - [address] [facility] Comment on above: Performed By: #### 2 37918 #### [facility],[address] [place] [address]871 ALT [Catalytic activity/Vol] 9 U/L Low 16 - [address] [facility] Comment on above: Performed By: #### 2 93122 #### [facility],[address] [place] [address] Anion gap [Moles/Vol] 14 mmol/L Normal 10 - 20 [facility] Comment on above: Performed By: #### 2 71100 #### [facility],[address] [place] [address] AST [Catalytic activity/Vol] 16 U/L Normal 13 - [address] [facility] Comment on above: Performed By: #### 2 94562 #### [facility],[address] [place] [address] B/C RATIO 13 ratio Normal 0 - [address] [facility] Comment on above: Performed By: #### 2 96751 #### [facility],[address] [place] [address] Bilirubin [Mass/Vol] 1.6 mg/dL High 0.2 - 1.[address] [facility] Comment on above: Performed By: #### 2 76838 #### [facility],[address] [place] [address] Calcium [Mass/Vol] 8.6 mg/dL Normal 8.5 - 10.[address] [facility] Comment on above: Performed By: #### 2 28478 #### [facility],[address] [place], [place] [address] Chloride [Moles/Vol] 106 mmol/L Normal 98 - [address] [facility] Comment on above: Performed By: #### 2 14712 #### [facility],[address] [place] [address] CMP with eGFR Normal [facility] Comment on above: Result Comment: COMP REHENSIVE METABOLIC PANEL Performed By: #### 2 72113 #### [facility],[address] [place] [address] CO2 [Moles/Vol] 24.9 mmol/L Normal 21.0 - 32.[address] [facility] Comment on above: Performed By: #### 2 51943 #### [address] [address] Creatinine [Mass/Vol] 1.27 mg/dL High 0.55 - 1.02 [facility] Comment on above: Performed By: #### 2 44676 #### [facility],[address] [place] [address] eGFR 42 ML/MINUTE Low 60 - [address] [facility] Comment on above: Performed By: #### 2 44319 #### [address] [address] eGFR(AA) 50 ML/MINUTE Low 60 - [address] [facility] Comment on above: Result Comment: ACCO RDING TO THE NATIONAL KIDNEY DISEASE EDUCATION PROGRAM(NKDE), A NORMAL eGFR IS A VALUE GREATER THAN OR EQUAL TO 60 ML/MIN/1.73 SQ METERS. CHRONIC KIDNEY DISEASE: <60mL/MIN/1.73 SQ METERS KIDNEY FAILURE: <15mL/MIN/1.73 SQ METERS THIS TEST SHOULD ONLY BE USED FOR PATIENTS 18 YEARS OF AGE AND OLDER. Performed By: #### 2 43977 #### [address] [address] Globulin (S) [Mass/Vol] 3.9 g/dL High 1.5 - 3.8 [facility] Comment on above: Performed By: #### 2 88087 #### [address] [address] Glucose [Mass/Vol] 272 mg/dL High 74 - [address] [facility] Comment on above: Performed By: #### 2 62776 #### [address] [address] Potassium [Moles/Vol] 3.7 mmol/L Normal 3.5 - 5.1 [facility] Comment on above: Performed By: #### 2 89361 #### [facility],[address] [place] [address] Protein [Mass/Vol] 6.8 g/dL Normal 6.4 - 8.[address] [facility] Comment on above: Performed By: #### 2 45900 #### [facility],[address] [place] [address] Sodium [Moles/Vol] 141 mmol/L Normal 136 - [address] [facility] Comment on above: Performed By: #### 2 47180 #### [facility],[address] [place] [address] Urea nitrogen [Mass/Vol] 17 mg/dL Normal 7 - [address] [facility] Comment on above: Performed By: #### 2 43720 #### [facility],[address] [place] [address] CORONAVIRUS (SARS) ANTIGEN T ESTon 05-14-2025 EXTERNAL QC DONE? YES Normal [facility] Comment on above: Performed By: #### 2 15927 #### [facility],[address] [place] [address] INTERNAL CONTROL PASS Normal [facility] Comment on above: Performed By: #### 2 45537 #### [facility],[address] [place] [address] SARS ANTIGEN Negative Normal NORMAL: NEGATIVE [facility] Comment on above: Performed By: #### 2 20818 #### [facility],[address] [place] [address] SEND TO ? NO Normal [facility] Comment on above: Result Comment: SARS -CoV-2 THIS TEST IS BEING USED UNDER THE FDA EUA PROCEDURE. THIS ASSAY HAS BEEN VALIDATED AT [facility] FOR USE WITH NASAL AND NASOPHARYNGEAL [...] WITH PUBLIC HEALTH AUTHORITIES. Performed By: #### 2 21011 #### [place] [id number] CULTURE BLOOD [NANCY]on Microscopic examination of blood, culture CULTURE BLOOD [NANCY] _BLOOD CULTURE_ GO TO [facility] REPORTS AND ATTACHMENTS FOR SCANNED REPORT 05/24/25.1041.DNP.COMPLE TE [facility] Comment on above: Performed By: #### 2 70347 ####[place] [id number] Microscopic examination of blood, culture CULTURE BLOOD [NANCY] _BLOOD CULTURE_ GO TO [facility] REPORTS AND ATTACHMENTS FOR SCANNED REPORT 05/20/25.1138.DNP.COMPLE TE [facility] Comment on above: Performed By: #### 2 42277 ####[address] [address] INFLUENZA VIRUS RAPID A/Bon 05-14-2025 INFLUENZA VIRUS RAPID A/B INFLUENZA A NEGATIVE INFLUENZA B NEGATIVE INTERNAL NEG QC PASS INTERNAL POS QC PASS EXTERNAL QC DONE? YES SEND TO IC? NO A NEGATIVE TEST RESULT DOES NOT EXCLUDE [...] UP TO THREE DAYS. RESULT CRITICAL? NO Normal [facility] Comment on above: Performed By: #### 2 51669 ####[address] [address] LACTATEon 05-14-2025 Lactate [Moles/Vol] 2.0 mmol/L Normal 0.4 - 2.[address] [facility] Comment on above: Performed By: #### 2 28676 #### [address] [address] Lactate [Moles/Vol] 4.0 mmol/L Critically high 0.4 - 2.[address] [facility] Comment on above: Result Comment: { CA LLED TO TOM SOTO BY ROOPA AT 1502 { READ BACK BY TOM SOTO RA AT 1458 LACTATE 3 HR NOTIFIED TO: _CHARLES 05/14/25.1500.CWB. . . LACTATE 3 HR NOTIFIED BY: _ROOPA 05/14/25.1500.CWB. . . Performed By: #### 2 61312 #### [address] [address] Lactate [Moles/Vol] 3.1 mmol/L High 0.4 - 2.[address] [facility] Comment on above: Result Comment: LACT ATE 3 HR NOTIFIED TO: _SIMIN 05/14/25.1306.CWB. . . LACTATE 3 HR NOTIFIED BY: _CHRISTIN 05/14/25.1306.CWB. . . Performed By: #### 2 54404 #### [facility],[address] [place] [address] MAGNESIUMon 05-14-2025 Magnesium [Mass/Vol] 1.3 mg/dL Low 1.8 - 2.[address] [facility] Comment on above: Performed By: #### 2 32966 ####[facility],[address] [place] [address] NT-proBNPon 05-14-2025 Natriuretic peptide B (Bld) [Mass/Vol] 5002 pg/mL High 0 - [address] [facility] Comment on above: Performed By: #### 2 73267 #### [facility],[address] [place] [address] TROPONINon 05-14-2025 HS TROPONIN 9.5 pg/mL Normal 0.0 - 51.[address] [facility] Comment on above: Performed By: #### 2 71037 ####[facility],[address] [place] [address] TSHon 05-14-2025 TSH Qn 0.67 m[IU]/L Normal 0.35 - 3.[address] [facility] Comment on above: Performed By: #### 2 63511 ####[facility],[address] [place] [address] URINALYSISon 05-14-2025 Amorphous NONE Normal [facility] Comment on above: Performed By: #### 2 44389 ####[facility],[address] [place] [address] Bacteria 4+ Normal [facility] Comment on above: Performed By: #### 2 60321 ####[facility],[address] [place] [address] Bilirubin Ql (U) Negative Normal NORMAL: NEGATIVE [facility] Comment on above: Performed By: #### 2 42057 ####[facility],[address] [place] [address] Casts NONE Normal [facility] Comment on above: Performed By: #### 2 12617 ####[facility],[address] [place] [address] Clarity (U) very cloudy Normal NORMAL: CLEAR [facility] Comment on above: Performed By: #### 2 17617 ####[facility],[address] [place], [place] [address] Color (U) yellow Normal NORMAL: YELLOW [facility] Comment on above: Performed By: #### 2 58671 ####[facility],[address] [place], [place] [address] Crystals LM Nom (Urine sed) NONE Normal [facility] Comment on above: Performed By: #### 2 03806 ####[facility],[address] [place] [address] Epi Cells OCC Normal [facility] Comment on above: Performed By: #### 2 13070 ####[facility],[address] [place] [address]69 Glucose Ql (U) NORM Normal NORMAL: NORMAL [facility] Comment on above: Performed By: #### 2 02772 ####[facility],[address] [place] [address] Hemoglobin Ql (U) 25 Abnormal NORMAL: NEGATIVE [facility] Comment on above: Performed By: #### 2 58690 ####[facility],[address] [place] [address] Ketone Negative Normal NORMAL: NEGATIVE [facility] Comment on above: Performed By: #### 2 61415 ####[facility],[address] [place] [address] Leukocytes 500 Abnormal NORMAL: NEGATIVE [facility] Comment on above: Performed By: #### 2 55658 ####[facility],[address] [place] [address] Mucous NONE Normal [facility] Comment on above: Performed By: #### 2 32203 ####[facility],[address] [place] [address] Nitrite Ql (U) Negative Normal NORMAL: NEGATIVE [facility] Comment on above: Performed By: #### 2 09476 ####[facility],[address] [place] [address] pH (U) 5 [pH] Normal NORMAL: 5.0-8.[address] [facility] Comment on above: Performed By: #### 2 67030 ####[facility],[address] [place] [address]663 Protein Ql (U) 30 Abnormal NORMAL: NEGATIVE [facility] Comment on above: Performed By: #### 2 04740 ####[facility],[address] [place], [place] [address] Rbc 0-5 Normal 0-3/hpf [facility] Comment on above: Performed By: #### 2 92666 ####[facility],[address] [place] [address] Sp [place] 1.015 Normal NORMAL: 1.010-1.[address] [facility] Comment on above: Performed By: #### 2 89852 ####[facility],[address] [place] [address] Specimen Type R Normal [facility] Comment on above: Performed By: #### 2 99536 ####[facility],[address] [place], [place] [address] Urinalysis dipstick W Reflex Microscopic panel (U) SEE BELOW Normal [facility] Comment on above: Result Comment: MICR OSCOPIC Performed By: #### 2 59023 ####[facility],[address] [place] [address] Urobilinog NORM Normal NORMAL: NORMAL [facility] Comment on above: Performed By: #### 2 84759 ####[facility],[address] [place] [address] WBC (U) [#/Vol] /uL Normal 0-5/hpf [facility] Comment on above: Performed By: #### 2 65872 ####[facility],[address] [place] [address] Yeast NONE Normal [facility] Comment on above: Performed By: #### 2 89451 ####[facility],[address] [place] [address] URINE CULTURE [CCL]on 2024 Bacteria identified Cx Nom (U) URCUL See Results Below See Below CULTURE, [...] and its performance characteristics determined by the [facility]'s [facility] [place] ([facility]). It has not been cleared or approved by the FDA. [facility] is regulated under CLIA as qualified to perform high-complexity testing. This test is used for clinical purposes. It should not be regarded as investigational or for research. SOURCE: Urine (Nonspecific) [facility] [address] [place] [id number] Bo Rosales III, M.D. [id number] Normal [facility] Comment on above: Performed By: #### 2 07638 ####[facility],[address] [place] [address] Absolute lymphocyte countOrd ered By: Dylon Murrieta on 04-13-2025 Lymphocytes Auto (Unsp spec) [#/Vol] 1.15 10*3/uL 0.83-4.51 [facility] Absolute neutrophil countOrd ered By: Dylon Murrieta on 04-13-2025 Neutrophils (Bld) [#/Vol] 4.1 10*3/uL 2.0-7.7 [facility] Anion gap in Serum or Plasma Ordered By: Dylon Murrieta on 04-13-2025 Anion gap [Moles/Vol] 13 mmol/L 5-15 [facility] Automated lymphocyte count a s percentage of total leukocytesOrdered By: Dylon Murrieta on 04-13-2025 Lymphocytes/100 WBC Auto (Unsp spec) 19.1 % 19-41 [facility] BUN/creatinine ratioOrdered By: Dylon Murrieta on 04-13-2025 Urea nitrogen/Creatinine [Mass ratio] 13.4 mg/mg 10-20 [facility] Basophil percentageOrdered B y: Dylon Murrieta on 04-13-2025 Basophils/100 WBC (Bld) 0.5 % 0-1 [facility] Bilirubin, totalOrdered By: Dylon Murrieta on 04-13-2025 Bilirubin [Mass/Vol] 0.84 mg/dL 0.00-1.30 [facility] Calculated very low density lipoprotein (VLDL) cholesterol measurementOrdered By: Dylon Murrieta on 04-13-2025 Calculated very low density lipoprotein (VLDL) cholesterol measurement 34 mg/dL -40 [facility] Carbon dioxide, total [Moles /volume] in Central venous bloodOrdered By: Dylon Murrieta on 04-13-2025 CO2 [Moles/Vol] 20.7 mmol/L Low 21.0-32.0 [facility] Chloride assayOrdered By: Jonah Murrieta on 04-13-2025 Chloride [Moles/Vol] 107 mmol/L 98-108 [facility] Eosinophil percentageOrdered By: Dylon Murrieta on 04-13-2025 Eosinophils/100 WBC (Bld) 2.8 % 0-5 [facility] Erythrocyte distribution wid th ratioOrdered By: Dylon Murrieta on 04-13-2025 Erythrocyte distribution width (RBC) [Ratio] 15.3 % High 11.6-14.6 [facility] Erythrocyte distribution wid th standard deviationOrdered By: Dylon Murrieta on 04-13-2025 Erythrocyte distribution width (RBC) [Ratio] 50.3 fl High 35.1-43.9 [facility] Glomerular filtration rate ( GFR) estimation/1.73 sq m using serum, plasma, or whole bOrdered By: Dylon Murrieta on 04-13-2025 GFR/1.73 sq M.predicted among non-blacks MDRD (S/P/Bld) [Vol rate/Area] 49 mL/min/{1.73_m2} Low >60 [facility] Comment on above: mL/min/1.73m2 CKD-EP I Creatinine Equation (2020) Hematocrit Auto (Bld) [Volum e fraction]Ordered By: Dylon Murrieta 04-13-2025 Hematocrit (Bld) [Volume fraction] 40.7 % 37-47 [facility] Hemoglobin A1c percentageOrd ered By: Dylon Murrieta on 04-13-2025 HbA1c (Bld) [Mass fraction] 7.8 % High <5.7 [facility] Comment on above: Normal < 5.7 % Predi abetic 5.7 - 6.4 % Diabetic >or= 6.5 % Please note range changes. Hemoglobin measurementOrdere d By: Dylon Murrieta on 04-13-2025 Hemoglobin (Bld) [Mass/Vol] 12.9 g/dL 12.0-15.0 [facility] Immature granulocytes/100 WB C Auto (Bld)Ordered By: Dylon Murrieta on 04-13-2025 Immature granulocytes/100 WBC (Bld) 0.700 % 0.0-0.9 [facility] Comment on above: IG% - Immature Granu locytes (promyelocytes, myelocytes and metamyelocytes) > 1% indicates that a LEFT SHIFT is Present. LDL calc ser/plasOrdered By: Dylon Murrieta on 04-13-2025 Cholesterol in LDL [Mass/Vol] 43 mg/dL [facility] Comment on above: Xflwwephgt=874-962 m g/dL & Higher Mdcq=301 mg/dL or greater Laboratory - Chemistry and C hemistry - challengeOrdered By: Dylon Murrieta on 04-13-2025 AST [Catalytic activity/Vol] 21 U/L <32 [facility] MCV (mean corpuscular volume ) determinationOrdered By: Dylon Murrieta on 04-13-2025 MCV (RBC) [Entitic vol] 91.3 fL 81-99 [facility] Mean corpuscular hemoglobin (MCH) determinationOrdered By: Dylon Murrieta on 04-13-2025 MCH (RBC) [Entitic mass] 28.9 pg 27.0-32.0 [facility] Mean corpuscular hemoglobin concentration (MCHC) determinationOrdered By: Dylon Murrieta on 04-13-2025 MCHC (RBC) [Mass/Vol] 31.7 g/dL Low 32-36 [facility] Mean platelet volume determi nationOrdered By: Dylon Murrieta on 04-13-2025 Platelet mean volume (Bld) [Entitic vol] 10.7 fL 6.2-12.0 [facility] Monocyte percentageOrdered B y: Dylon Murrieta on 04-13-2025 Monocytes/100 WBC (Bld) 9.6 % 0-10 [facility] Neutrophil percentageOrdered By: Dylon Murrieta on 04-13-2025 Neutrophils/100 WBC (Bld) 67.3 % 47-70 [facility] Nucleated red blood cell per centageOrdered By: Dylon Murrieta on 04-13-2025 Nucleated RBC/100 WBC (Bld) [Ratio] 0 % 0-5 [facility] Platelet countOrdered By: Jonah Murrieta on 04-13-2025 Platelets (Bld) [#/Vol] 171 10*3/uL 150-450 [facility] Potassium measurement (mass/ volume)Ordered By: Dylon Murrieta on 04-13-2025 Potassium (Unsp spec) [Mass/Vol] 4.2 mmol/L 3.3-5.1 [facility] RBC Auto (Bld) [#/Vol]Ordere d By: Dylon Murrieta on 04-13-2025 RBC (Bld) [#/Vol] 4.46 10*6/uL 4.2-5.4 [facility] Screening total cholesterol/ high density lipoprotein (HDL) cholesterol ratioOrdered By: Dylon Murrieta on 04-13-2025 Cholesterol.total/Ellen sterol in HDL [Mass ratio] 3.10 {ratio} [facility] Serum creatinine measurement (mass/volume)Ordered By: Dylon Murrieta on 04-13-2025 Creatinine [Mass/Vol] 1.20 mg/dL 0.70-1.20 [facility] Serum globulin measurementOr dered By: Dylon Murrieta 04-13-2025 Globulin (S) [Mass/Vol] 3.4 g/dL 2.2-4.2 [facility] Serum glucose measurement (m ass/volume)Ordered By: Dylon Murrieta 04-13-2025 Glucose [Mass/Vol] 249 mg/dL High 70-99 [facility] Serum or plasma alanine park otransferase (ALT) measurementOrdered By: Dylon Murrieta 04-13-2025 ALT [Catalytic activity/Vol] 8 U/L <35 [facility] Serum or plasma albumin mariel urement (mass/volume)Ordered By: Dylon Murrieta 04-13-2025 Albumin [Mass/Vol] 3.6 g/dL 3.4-4.8 [facility] Serum or plasma albumin/glob ulin mass ratioOrdered By: Dylon Murrieta 04-13-2025 Albumin/Globulin [Mass ratio] 1.1 {ratio} 0.9-2.4 [facility] Serum or plasma alkaline diane sphatase measurementOrdered By: Dylon Murrieta 04-13-2025 ALP [Catalytic activity/Vol] 89 U/L 35-104 [facility] Serum or plasma calcium mariel urement (mass/volume)Ordered By: Dylon Murrieta 04-13-2025 Calcium [Mass/Vol] 8.8 mg/dL 7.6-11.0 [facility] Serum or plasma cholesterol in HDL measurement (mass/volume)Ordered By: Dylon Murrieta 04-13-2025 Cholesterol in HDL [Mass/Vol] 37 mg/dL Low >40 [facility] Comment on above: National Cholesterol Education Program (NCEP) guidelines:<40 mg/dL: Low HDL-cholesterol (major risk factor for CHD)>= 60 mg/dL: High HDL-cholesterol (negative risk factor for CHD)HDL-cholesterol is affected by a number of factors, e.g. smoking, exercise, hormones, sex and age. Serum or plasma cholesterol measurement (mass/volume)Ordered By: Dylon Murrieta on 04-13-2025 Cholesterol [Mass/Vol] 114 mg/dL <201 [facility] Comment on above: Cholesterol level, D esirable <200 mg/dLBorderline high cholesterol 200-239 mg/dLHigh cholesterol >=240 mg/dLRecommendations of the NCEP Adult Treatment Panel for the following risk-cutoff thresholds for the [place] population. Serum or plasma urea nitroge n measurement (mass/volume)Ordered By: Dylon Murrieta on 04-13-2025 Urea nitrogen [Mass/Vol] 16 mg/dL 4-19 [facility] Sodium levelOrdered By: Dylon Murrieta 04-13-2025 Sodium [Moles/Vol] 141 mmol/L 133-145 [facility] TSH DL <= 0.005 mIU/L QnOrde red By: Dylon Murrieta 04-13-2025 TSH Qn 1.710 uIU/mL 0.300-4.200 [facility] Total proteinOrdered By: Dylon Murrieta 04-13-2025 Protein [Mass/Vol] 7.0 g/dL 5.9-8.4 [facility] Triglycerides measurementOrd ered By: Dylon Murrieta 04-13-2025 Triglyceride [Mass/Vol] 170 mg/dL <199 [facility] Comment on above: The drugs N-Acetylcy steine and Metamizole may falsely depress this assay. Normal range: <150 mg/dLBorderline High: 150-199 mg/dLHigh: 200-499 mg/dLVery High: >500 mg/dL White blood cell (WBC) count Ordered By: Dylon Murrieta on 04-13-2025 WBC (Bld) [#/Vol] 6.0 10*3/uL 4.4-11.0 [facility] GLUCOSE BY METERon Glucose [Mass/Vol] 162 mg/dL High 70 [facility] Comment on above: Order Comment: Relea se to patient->Automatic Glucose [Mass/Vol] 95 mg/dL Invalid Interpretation Code [facility] Comment on above: Order Comment: Relea se to patient->Automatic Absolute lymphocyte countOrd ered By: Lynne Le on 12-04-2024 Lymphocytes Auto (Unsp spec) [#/Vol] 0.96 10*3/uL 0.83-4.51 [facility] Absolute neutrophil countOrd ered By: Lynne Le on 12-04-2024 Neutrophils (Bld) [#/Vol] 6.2 10*3/uL 2.0-7.7 [facility] Anion gap in Serum or Plasma Ordered By: Lynne Le on 12-04-2024 Anion gap [Moles/Vol] 12 mmol/L 5- [facility] Automated lymphocyte count a s percentage of total leukocytesOrdered By: Lynne Le on 12-04-2024 Lymphocytes/100 WBC Auto (Unsp spec) 11.9 % Low 19-41 [facility] BUN/creatinine ratioOrdered By: Lynne Le on 12-04-2024 Urea nitrogen/Creatinine [Mass ratio] 10.6 mg/mg 10-20 [facility] Basophil percentageOrdered B y: Lynne Le on 12-04-2024 Basophils/100 WBC (Bld) 0.1 % 0-1 [facility] CBC + DIFFon 12-04-2024 Baso # 0.01 x10EE3/UL Normal 0.00 - 0.[address] [facility] Comment on above: Performed By: #### 2 [id number] ####[facility],[address] [place] [address] Basophils/100 WBC (Bld) 0.1 % Normal 0.0 - 2.0 [facility] Comment on above: Performed By: #### 2 50276 ####[facility],[address] [place] [address] CBC + DIFF Normal [facility] Comment on above: Result Comment: CBC- COMPLETE BLOOD COUNT Performed By: #### 2 19611 ####[place] [address] EO # 0.22 x10EE3/UL Normal 0.00 - 0.[address] [facility] Comment on above: Performed By: #### 2 20438 ####[place] [address] Eosinophils/100 WBC (Bld) 3.1 % Normal 0.0 - 7.[address] [facility] Comment on above: Performed By: #### 2 09591 ####[place] [address] Erythrocyte distribution width (RBC) [Ratio] 13.2 % Normal 12.0 - 15.[address] [facility] Comment on above: Performed By: #### 2 38085 ####[place] [address] Hematocrit (Bld) [Volume fraction] 39.5 % Normal 34.0 - 46.[address] [facility] Comment on above: Performed By: #### 2 70606 ####[place] [address] Hemoglobin (Bld) [Mass/Vol] 13.7 g/dL Normal 12.0 - 16.[address] [facility] Comment on above: Performed By: #### 2 56734 ####[place] [address] Lymph # 0.79 x10EE3/UL Low 0.80 - 2.[address] [facility] Comment on above: Performed By: #### 2 53821 ####[place] [address] Lymphocytes/100 WBC (Bld) 11.3 % Low 20.0 - 45.[address] [facility] Comment on above: Performed By: #### 2 99922 ####[place] [address] MANUAL DIFF N/A Normal [facility] Comment on above: Performed By: #### 2 97557 ####[facility],[address] [place] [address] MCH (RBC) [Entitic mass] 33 pg Normal 27 - [address] [facility] Comment on above: Performed By: #### 2 72856 ####[facility],[address] [place] [address] MCHC 35 X10 3 Normal 32 - [address] [facility] Comment on above: Performed By: #### 2 64972 ####[facility],[address] [place] [address] MCV (RBC) [Entitic vol] 95 fL Normal 80 - 99 [facility] Comment on above: Performed By: #### 2 30800 ####[facility],[address] [place] [address] Winn # 0.54 x10EE3/UL Normal 0.20 - 1.[address] [facility] Comment on above: Performed By: #### 2 54347 ####[facility],[address] [place] [address] MONOS % 7.6 % Normal 0.0 - 10.[address] [facility] Comment on above: Performed By: #### 2 19787 ####[facility],[address] [place] [address] Morphology Prashanth (Bld) [Interp] N/A Normal [facility] Comment on above: Performed By: #### 2 31460 ####[facility],[address] [place] [address] Neut # 5.47 x10EE3/UL Normal 1.50 - 7.[address] [facility] Comment on above: Performed By: #### 2 99238 ####[facility],[address] [place] [address] Neutrophils/100 WBC (Bld) 77.9 % High 46.0 - 76.[address] [facility] Comment on above: Performed By: #### 2 80551 ####[facility],[address] [place], [place] [id number] PLATELET 175 x10EE3/UL Normal 150 - [address] [facility] Comment on above: Performed By: #### 2 89254 ####[facility],[address] [place] [address] Platelet mean volume (Bld) [Entitic vol] 8.4 fL Normal 6.6 - 10.[address] [facility] Comment on above: Result Comment: AUTO MATED DIFFERENTIAL Performed By: #### 2 40115 ####[place] [address] RBC 4.17 x 10EE6/UL Normal 4.10 - 5.[address] [facility] Comment on above: Performed By: #### 2 48838 ####[place] [address] WBC 7.0 x 10EE3/UL Normal 4.5 - 10.[address] [facility] Comment on above: Performed By: #### 2 39623 ####[facility],[address] [place] [address] CMP with eGFRon 12-04-2024 AGE 69 years Normal [facility] Comment on above: Performed By: #### 2 72725 #### [place] [address] Albumin [Mass/Vol] 3.4 g/dL Normal 3.4 - 5.[address] [facility] Comment on above: Performed By: #### 2 47405 #### [place] [address] Albumin/Globulin [Mass ratio] 0.9 {ratio} Normal 0.9 - 1.[address] [facility] Comment on above: Performed By: #### 2 61539 #### [place] [address] ALK PHOS 75 U/L Normal 46 - [address] [facility] Comment on above: Performed By: #### 2 90148 #### [facility],[address] [place], [place] [id number] ALT [Catalytic activity/Vol] 14 U/L Low 16 - [address] [facility] Comment on above: Performed By: #### 2 36474 #### [facility],[address] [place] [address] Anion gap [Moles/Vol] 14 mmol/L Normal 10 - 20 [facility] Comment on above: Performed By: #### 2 13954 #### [facility],[address] [place] [address] AST [Catalytic activity/Vol] 14 U/L Normal 13 - [address] [facility] Comment on above: Performed By: #### 2 24354 #### [facility],[address] [place] [address] B/C RATIO 7 ratio Normal 0 - [address] [facility] Comment on above: Performed By: #### 2 85498 #### [facility],[address] [place] [address] Bilirubin [Mass/Vol] 0.6 mg/dL Normal 0.2 - 1.[address] [facility] Comment on above: Performed By: #### 2 55627 #### [facility],[address] [place] [address] Calcium [Mass/Vol] 8.4 mg/dL Low 8.5 - 10.[address] [facility] Comment on above: Performed By: #### 2 25868 #### [facility],[address] [place] [address] Chloride [Moles/Vol] 107 mmol/L Normal 98 - [address] [facility] Comment on above: Performed By: #### 2 92736 #### [facility],[address] [place] [address] CMP with eGFR Normal [facility] Comment on above: Result Comment: COMP REHENSIVE METABOLIC PANEL Performed By: #### 2 14205 #### [facility],[address] [place] [address]77 CO2 [Moles/Vol] 28.5 mmol/L Normal 21.0 - 32.[address] [facility] Comment on above: Performed By: #### 2 02548 #### [place] [address] Creatinine [Mass/Vol] 1.05 mg/dL High 0.55 - 1.02 [facility] Comment on above: Performed By: #### 2 45062 #### [facility],[address] [place] [address]73 eGFR 52 ML/MINUTE Low 60 - [address] [facility] Comment on above: Performed By: #### 2 72446 #### [address] [address] GFR/1.73 sq M.predicted among non-blacks MDRD (S/P/Bld) [Vol rate/Area] mL/min/{1.73_m2} Normal 60 - [address] [facility] Comment on above: Result Comment: ACCO RDING TO THE NATIONAL KIDNEY DISEASE EDUCATION PROGRAM(NKDE), A NORMAL eGFR IS A VALUE GREATER THAN OR EQUAL TO 60 ML/MIN/1.73 SQ METERS. CHRONIC KIDNEY DISEASE: <60mL/MIN/1.73 SQ METERS KIDNEY FAILURE: <15mL/MIN/1.73 SQ METERS THIS TEST SHOULD ONLY BE USED FOR PATIENTS 18 YEARS OF AGE AND OLDER. Performed By: #### 2 57539 #### [facility],[address] [place] [address] Globulin (S) [Mass/Vol] 4.0 g/dL High 1.5 - 3.8 [facility] Comment on above: Performed By: #### 2 62183 #### [facility],[address] [place] [address] Glucose [Mass/Vol] 109 mg/dL High 74 - [address] [facility] Comment on above: Performed By: #### 2 00546 ####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 subarachnoid hemorrhage, or mass. SKULL: No mass or other significant visible lesion. SINUSES: Mucosal thickening is present in the ethmoid and maxillary sinuses. 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 ORBITS: Limited views are unremarkable. OTHER: Negative. CONCLUSION: 1. There is no evidence of acute intracranial abnormality. Dictated by: Karin Barrientos MD on 06/16/2024 at 12:36 Approved by: Karin Barrientos MD on 06/16/2024 at 12:[address] [facility] CT CERVICAL W/O CONTRASTon 0 06-16-2024 CT CERVICAL W/O CONTRAST [facility] [address], [place] [address] Patient: TAMIA PANDA Phone#: : 1955 Age: 69 Gender: F Pt. Type: ER Account: [id number] Location: 052 Ordering: DR. IRENE DENISE Exam Date: 06/16/2024/12:10 Family Phys: Charge Code: [id number] Physician: Cottle Order #: [id number] Dose#: 14.1 mGy PROCEDURE: CT CERVICAL WITHOUT CONTRAST COMPARISON: None. INDICATIONS: Trauma. TECHNIQUE: Multi-planar CT images were created without intravenous contrast. All CT scans at this facility use dose modulation, iterative reconstruction, and/or weight-based dosing when appropriate to reduce radiation dose to as low as reasonably achievable. IV CONTRAST: No IV contrast used,0ml TOTAL DOSE: 14.1 CTDIvol(mGy) FINDINGS: CRANIOCERVICAL AREA: Normal foramen magnum with no Chiari malformation. PARASPINAL AREA: Normal with no visible mass. BONES: No fracture, pars defect, or osseous lesion. CERVICAL DISC LEVELS: C2-C3: No significant disc/facet abnormality, spinal stenosis, or foraminal stenosis. C3-C4: Bony hypertrophy is present with bilateral foraminal narrowing greater on the right. Spinal canal is patent. C4-C5: Disc space narrowing is present. There is bony hypertrophy with narrowing of the foramina bilaterally. C5-C6: Bony hypertrophy is present with narrowing of the foramina bilaterally. C6-C7: Bony hypertrophy is present at the articular facettes. There is mild bilateral foraminal narrowing. C7-T1: No significant disc/facet abnormality, spinal stenosis, or foraminal stenosis. CONCLUSION: 1. Multilevel degenerative change. There is no evidence of acute fracture or subluxation. Dictated by: Karin Barrientos MD on 06/16/2024 at 12:50 Continued Report - Page 2 of 2 Patient: TAMIA PANDA Phone#: : 1955 Age: 69 Gender: F Pt. Type: ER Account: [id number] Location: 052 Ordering: DR. IRENE DENISE Exam Date: 06/16/2024/12:10 Family Phys: Charge Code: [id number] Physician: Cottle Order #: [id number] Dose#: 14.1 mGy Approved by: Karin Barrientos MD on 06/16/2024 at 13:[address] [facility] CT DORSAL W/O CONTRASTon CT DORSAL W/O CONTRAST [place] [address] Patient: TAMIA PANDA Phone#: : 1955 Age: 69 Gender: F Pt. Type: ER Account: [id number] Location: 052 Ordering: DR. IRENE DENISE Exam Date: 06/16/2024/12:15 Family Phys: Charge Code: [id number] Physician: Cottle Order #: [id number] Dose#: 28.5 mGy PROCEDURE: CT DORSAL SPINE WITHOUT CONTRAST COMPARISON: None. INDICATIONS: Trauma. TECHNIQUE: Multi-planar CT images were created without intravenous contrast. All CT scans at this facility use dose modulation, iterative reconstruction, and/or weight based dosing when appropriate to reduce radiation dose to as low as reasonably achievable. IV CONTRAST: No IV contrast used,0ml TOTAL DOSE: 28.5 CTDIvol(mGy) FINDINGS: PARASPINAL AREA: Normal with no visible mass. DISCS: No significant disc/facet abnormality, spinal stenosis, or foraminal stenosis. BONES: Degenerative changes of the spine are present. Mild curvature of the spine to the left is present. Healed left rib fractures are present. OTHER: Coronary artery calcification is present. CONCLUSION: 1. Degenerative changes of the spine are present. Dictated by: Krain Barrientos MD on 06/16/2024 at 13:12 Approved by: Karin Barrientos MD on 06/16/2024 at 13:[address] [facility] Thin prep Papanicolaou smear with manual screeningOrdered By: John Ford on 01-26-2024 Thin prep Papanicolaou smear with manual screening 156 mg/dL 74-106 [facility] Comment on above: MANAGEMENT OF PATIEN T CARE PER NURSING PROTOCOL Absolute lymphocyte countOrd ered By: Dylon Murrieta on 01-13-2024 Lymphocytes Auto (Unsp spec) [#/Vol] 1.07 10*3/uL 0.83-4.51 [facility] Automated lymphocyte count a s percentage of total leukocytesOrdered By: Dylon Murrieta on 01-13-2024 Lymphocytes/100 WBC Auto (Unsp spec) 19.4 % 19-41 [facility] Bacteria identified Cx Nom ( Wound)Ordered By: Dylon Murrieta on 01-13-2024 [address] aureus [facility] Basophil percentageOrdered B y: Dylon Murrieta on 01-13-2024 Basophils/100 WBC (Bld) 0.5 % 0-1 [facility] Bilirubin [Mass/Vol] 0.80 mg/dL 0.20-1.00 [facility] Comment on above: For patients on eltr ombopag therapy, use of Dimension Cascade TBIL is not recommended. Chloride [Moles/Vol] 113 mmol/L 98-107 [facility] Cholesterol [Mass/Vol] 164 mg/dL <200 [facility] Comment on above: <200 mg/dL Desirable 200-240 mg/dL Borderline >240 mg/dL High Risk Eosinophils/100 WBC (Bld) 3.1 % 0-5 [facility] Glucose [Mass/Vol] 151 mg/dL 74-106 [facility] Comment on above: Fasting Glucose resu lt greater than or equal to 126 mg/dL suggests DIABETES MELLITUS per A.D.A. criteria. Hemoglobin (Bld) [Mass/Vol] 11.6 g/dL 12.0-15.0 [facility] Monocytes/100 WBC (Bld) 9.6 % 0-10 [facility] Neutrophils (Bld) [#/Vol] 3.7 10*3/uL 2.0-7.7 [facility] Neutrophils/100 WBC (Bld) 66.3 % 47-70 [facility] Potassium [Moles/Vol] 4.4 mmol/L 3.5-5.1 [facility] Protein [Mass/Vol] 7.1 g/dL 6.4-8.2 [facility] Sodium [Moles/Vol] 142 mmol/L 136-145 [facility] Triglyceride [Mass/Vol] 192 mg/dL <199 [facility] Comment on above: The drugs N-Acetylcy steine and Metamizole may falsely depress this assay.Serum Triglycerides Reference Interval Normal <150 mg/dL Borderline high 150 - 199 mg/dL High 200 - 499 mg/dL Very High > or = 500 mg/dL WBC (Bld) [#/Vol] 5.5 10*3/uL 4.4-11.0 [facility] Determination of erythrocyte mean corpuscular volume (MCV)Ordered By: Dylon Murrieta on 01-13-2024 MCV (RBC) [Entitic vol] 95.9 fL 81-99 [facility] Erythrocyte distribution wid th ratioOrdered By: Dylon Murrieta on 01-13-2024 Erythrocyte distribution width (RBC) [Ratio] 14.3 % 11.6-14.6 [facility] Erythrocyte distribution wid th standard deviationOrdered By: Dylon Murrieta on 01-13-2024 Erythrocyte distribution width (RBC) [Entitic vol] 49.8 fL 35.1-43.9 [facility] Gram stain for investigation of transfusion reactionOrdered By: Dylon Murrieta on 01-13-2024 Microscopic observation Gram stain Nom (Unsp spec) [facility] Hematocrit Auto (Bld) [Volum e fraction]Ordered By: Dylon Murrieta 01-13-2024 Hematocrit (Bld) [Volume fraction] 37.4 % 37-47 [facility] Immature granulocytes/100 WB C Auto (Bld)Ordered By: Dylon Murrieta 01-13-2024 Immature granulocytes/100 WBC (Bld) 1.100 % 0.0-0.9 [facility] Comment on above: IG% - Immature Granu locytes (promyelocytes, myelocytes and metamyelocytes) > 1% indicates that a LEFT SHIFT is Present. Laboratory - Chemistry and C hemistry - challengeOrdered By: Dylon Murrieta on 01-13-2024 Albumin/Globulin [Mass ratio] 0.8 {ratio} 0.9-2.4 [facility] ALP [Catalytic activity/Vol] 62 U/L 45-117 [facility] ALT [Catalytic activity/Vol] 13 U/L 13-56 [facility] Cholesterol in HDL [Mass/Vol] 47 mg/dL >40 [facility] Comment on above: The drugs N-Acetylcy steine and Metamizole may falsely depress this assay. Reference Range HDL <40 mg/dL Low HDL Cholesterol HDL >or= 60 mg/dL High HDL Cholesterol Cholesterol in LDL [Mass/Vol] 79 mg/dL 0-130 [facility] CO2 [Moles/Vol] 23.0 mmol/L 21.0-32.0 [facility] Globulin (S) [Mass/Vol] 4.0 g/dL 2.2-4.2 [facility] Urea nitrogen/Creatinine [Mass ratio] 14.8 mg/mg 10-20 [facility] Laboratory - Hematology and Cell countsOrdered By: Dylon Murrieta on 01-13-2024 MCH (RBC) [Entitic mass] 29.7 pg 27.0-32.0 [facility] MCHC (RBC) [Mass/Vol] 31.0 g/dL 32-36 [facility] Nucleated RBC/100 WBC (Bld) [Ratio] 0 % 0-5 [facility] Platelet mean volume (Bld) [Entitic vol] 10.6 fL 6.2-12.0 [facility] Platelets (Bld) [#/Vol] 202 10*3/uL 150-450 [facility] No Panel InformationOrdered By: Dylon Murrieta on 01-13-2024 Methicillin-Resist S.aureus DNA PCR Negative Negative [facility] Estimated GFR (MDRD) Amer 56 mL/min >60 [facility] Comment on above: GFR Calc Estimated GFR (MDRD) Non-Af Amer 47 mL/min >60 [facility] Comment on above: Non- GFR Calc Vitamin D 25-Hydroxy 54.8 ng/mL [facility] Comment on above: Vitamin D 25(OH) Sta tus Range Deficiency <20 ng/mL (50nmol/L) Insufficiency 20 - 30 ng/mL (50 - 75 nmol/L) Sufficiency 30 - 100 ng/mL (75 - 250 nmol/L) Toxicity >100 ng/mL (>250 nmol/L) VLDL Cholesterol 38 mg/dL 5-40 [facility] RBC Auto (Bld) [#/Vol]Ordere d By: Dylon Murrieta on 01-13-2024 RBC (Bld) [#/Vol] 3.90 10*6/uL 4.2-5.4 [facility] Serum or plasma calcium mariel urement (mass/volume)Ordered By: Dylon Murrieta on 01-13-2024 Calcium [Mass/Vol] 8.4 mg/dL 8.5-10.1 [facility] Serum or plasma creatinine m easurement (mass/volume)Ordered By: Dylon Murrieta on 01-13-2024 Creatinine [Mass/Vol] 1.22 mg/dL 0.55-1.02 [facility] Comment on above: The validity of the calculated GFR & GFRAA in patients over 70 years has not been determined. Clinical correlation is essential. Serum or plasma thyroid stim ulating hormone (TSH) measurement (units/volume)Ordered By: Dylon Murrieta 01-13-2024 TSH Qn 0.29 uIU/mL 0.358-3.74 [facility] Serum or plasma urea nitroge n measurement (mass/volume)Ordered By: Dylon Murrieta 01-13-2024 Urea nitrogen [Mass/Vol] 18 mg/dL 7-18 [facility] Staphylococcus aureus DNA de tection by probe and target amplification methodOrdered By: Dylon Murrieta 01-13-2024 S. aureus DNA SANDRA+probe Ql (Unsp spec) Positive Negative [facility] Thin prep Papanicolaou smear with manual screeningOrdered By: Dylon Murrieta 01-13-2024 Thin prep Papanicolaou smear with manual screening 3.1 g/dL 3.2-5.0 [facility] Thin prep Papanicolaou smear with manual screening 13 U/L 15-37 [facility] Thin prep Papanicolaou smear with manual screening 6 5-15 [facility] Whole blood hemoglobin A1c/t otal hemoglobin ratio (mass fraction)Ordered By: Dylon Murrieta on 01-13-2024 HbA1c (Bld) [Mass fraction] 6.5 % 3.8-5.6 [facility] Comment on above: Normal < 5.7 % Predi abetic 5.7 - 6.4 % Diabetic >or= 6.5 % Please note range changes. Thin prep Papanicolaou smear with manual screeningOrdered By: Jeff Lewis on 11-27-2023 Thin prep Papanicolaou smear with manual screening 162 mg/dL 74-106 [facility] Comment on above: MANAGEMENT OF PATIEN T CARE PER NURSING PROTOCOL Basophil percentageOrdered B y: Dylon Murrieta on 10-20-2023 Basophil percentage 139 mg/dL 74-106 [facility] Basophil percentage 137 mmol/L 136-145 [facility] Basophil percentage 3.8 mmol/L 3.5-5.1 [facility] Basophil percentage 103 mmol/L 98-107 [facility] Chloride [Moles/Vol] 103 mmol/L 98-107 [facility] Glucose [Mass/Vol] 139 mg/dL 74-106 [facility] Comment on above: Fasting Glucose resu lt greater than or equal to 126 mg/dL suggests DIABETES MELLITUS per A.D.A. criteria. Potassium [Moles/Vol] 3.8 mmol/L 3.5-5.1 [facility] Sodium [Moles/Vol] 137 mmol/L 136-145 [facility] Laboratory - Chemistry and C hemistry - challengeOrdered By: Dylon Murrieta on 10-20-2023 CO2 [Moles/Vol] 31.0 mmol/L 21.0-32.0 [facility] Urea nitrogen/Creatinine [Mass ratio] 14.8 mg/mg - [facility] No Panel InformationOrdered By: Dylon Murrieta on 10-20-2023 D-Dimer Quantitative (PE/DVT) < 0.27 FEU/ug/m 0.27-0.49 [facility] Comment on above: NORMAL D-Dimer level (<0.50) indicates no DVT or PE. Estimated GFR (MDRD) Amer 53 mL/min >60 [facility] Comment on above: GFR Calc Estimated GFR (MDRD) Non-Af Amer 44 mL/min >60 [facility] Comment on above: Non- GFR Calc < 0.27 FEU/ug/m 0.27-0.49 [facility] 44 mL/min >60 [facility] 53 mL/min >60 [facility] 14.8 RATIO 10-20 [facility] 31.0 mmol/L 21.0-32.0 [facility] Serum or plasma calcium mariel urement (mass/volume)Ordered By: Dylon Murrieta on 10-20-2023 Calcium [Mass/Vol] 9.5 mg/dL 8.5-10.1 [facility] Serum or plasma creatinine m easurement (mass/volume)Ordered By: Dylon Murrieta on 10-20-2023 Creatinine [Mass/Vol] 1.28 mg/dL 0.55-1.02 [facility] Comment on above: The validity of the calculated GFR & GFRAA in patients over 70 years has not been determined. Clinical correlation is essential. Serum or plasma urea nitroge n measurement (mass/volume)Ordered By: Dylon Murrieta on 10-20-2023 Urea nitrogen [Mass/Vol] 19 mg/dL 7-18 [facility] Thin prep Papanicolaou smear with manual screeningOrdered By: Dylon Murrieta on 10-20-2023 Thin prep Papanicolaou smear with manual screening 3 5-15 [facility] Absolute lymphocyte countOrd ered By: Dylon Murrieta on 10-13-2023 Lymphocytes Auto (Unsp spec) [#/Vol] 1.13 10*3/uL 0.83-4.51 [facility] Automated lymphocyte count a s percentage of total leukocytesOrdered By: Dylon Murrieta on 10-13-2023 Lymphocytes/100 WBC Auto (Unsp spec) 16.6 % 19-41 [facility] Basophil percentageOrdered B y: Dylon Murrieta on 10-13-2023 Basophil percentage 12.1 g/dL 12.0-15.0 [facility] Basophil percentage 240 mg/dL 74-106 [facility] Basophil percentage 7.3 g/dL 6.4-8.2 [facility] Basophil percentage 1.30 mg/dL 0.20-1.00 [facility] Basophil percentage 198 mg/dL <200 [facility] Basophil percentage 311 mg/dL <199 [facility] Basophil percentage 141 mmol/L 136-145 [facility] Basophil percentage 3.8 mmol/L 3.5-5.1 [facility] Basophil percentage 106 mmol/L 98-107 [facility] Basophils (Bld) [#/Vol] 6.8 10*3/uL 4.4-11.0 [facility] Basophils (Bld) [#/Vol] 4.6 10*3/uL 2.0-7.7 [facility] Basophils/100 WBC (Bld) 68.0 % 47-70 [facility] Basophils/100 WBC (Bld) 9.9 % 0-10 [facility] Basophils/100 WBC (Bld) 4.0 % 0-5 [facility] Basophils/100 WBC (Bld) 0.6 % 0-1 [facility] Bilirubin [Mass/Vol] 1.30 mg/dL 0.20-1.00 [facility] Comment on above: For patients on eltr ombopag therapy, use of Dimension Cascade TBIL is not recommended. Chloride [Moles/Vol] 106 mmol/L 98-107 [facility] Cholesterol [Mass/Vol] 198 mg/dL <200 [facility] Comment on above: <200 mg/dL Desirable 200-240 mg/dL Borderline >240 mg/dL High Risk Eosinophils/100 WBC (Bld) 4.0 % 0-5 [facility] Glucose [Mass/Vol] 240 mg/dL 74-106 [facility] Comment on above: Glucose result great er than or equal to 200 mg/dLsuggests DIABETES MELLITUS per A.D.A. criteria. Hemoglobin (Bld) [Mass/Vol] 12.1 g/dL 12.0-15.0 [facility] Monocytes/100 WBC (Bld) 9.9 % 0-10 [facility] Neutrophils (Bld) [#/Vol] 4.6 10*3/uL 2.0-7.7 [facility] Neutrophils/100 WBC (Bld) 68.0 % 47-70 [facility] Potassium [Moles/Vol] 3.8 mmol/L 3.5-5.1 [facility] Comment on above: Slight Hemolysis, Re sult may be falsely increased. Protein [Mass/Vol] 7.3 g/dL 6.4-8.2 [facility] Sodium [Moles/Vol] 141 mmol/L 136-145 [facility] Triglyceride [Mass/Vol] 311 mg/dL <199 [facility] Comment on above: The drugs N-Acetylcy steine and Metamizole may falsely depress this assay.Serum Triglycerides Reference Interval Normal <150 mg/dL Borderline high 150 - 199 mg/dL High 200 - 499 mg/dL Very High > or = 500 mg/dL WBC (Bld) [#/Vol] 6.8 10*3/uL 4.4-11.0 [facility] Determination of erythrocyte mean corpuscular volume (MCV)Ordered By: Dylon Murrieta on 10-13-2023 MCV (RBC) [Entitic vol] 97.2 fL 81-99 [facility] Erythrocyte distribution wid th ratioOrdered By: [facility] on 10-13-2023 Erythrocyte distribution width (RBC) [Ratio] 14.8 % 11.6-14.6 [facility] Erythrocyte distribution wid th standard deviationOrdered By: [facility] on 10-13-2023 Erythrocyte distribution width (RBC) [Entitic vol] 53.0 fL 35.1-43.9 [facility] Hematocrit Auto (Bld) [Volum e fraction][facility] Hematocrit (Bld) [Volume fraction] 38.2 % 37-47 [facility] High density lipoprotein (HD L) measurementOrdered By: Dylon Lit 10-13-2023 Cholesterol in HDL (Body fld) [Mass/Vol] 52 mg/dL >40 [facility] Comment on above: The drugs N-Acetylcy steine and Metamizole may falsely depress this assay. Reference Range HDL <40 mg/dL Low HDL Cholesterol HDL >or= 60 mg/dL High HDL Cholesterol Immature granulocytes/100 WB C Auto (Bld)Ordered By: Dylon Murrieta on 10-13-2023 Immature granulocytes/100 WBC (Bld) 0.900 % 0.0-0.9 [facility] Comment on above: IG% - Immature Granu locytes (promyelocytes, myelocytes and metamyelocytes) > 1% indicates that a LEFT SHIFT is Present. Laboratory - Chemistry and C hemistry - challengeOrdered By: Dylon Lit on 10-13-2023 Albumin/Globulin [Mass ratio] 0.8 {ratio} 0.9-2.4 [facility] ALP [Catalytic activity/Vol] 70 U/L 45-117 [facility] ALT [Catalytic activity/Vol] 17 U/L 13-56 [facility] CO2 [Moles/Vol] 30.0 mmol/L 21.0-32.0 [facility] Globulin (S) [Mass/Vol] 4.1 g/dL 2.2-4.2 [facility] Urea nitrogen/Creatinine [Mass ratio] 14.2 mg/mg 10-20 [facility] Laboratory - Hematology and Cell countsOrdered By: Dylon Murrieta on 10-13-2023 MCH (RBC) [Entitic mass] 30.8 pg 27.0-32.0 [facility] MCHC (RBC) [Mass/Vol] 31.7 g/dL 32-36 [facility] Nucleated RBC/100 WBC (Bld) [Ratio] 0 % 0-5 [facility] Platelets (Bld) [#/Vol] 188 10*3/uL 150-450 [facility] Low density lipoprotein (LDL ) cholesterol measurementOrdered By: Dylon Murrieta on 10-13-2023 Cholesterol in LDL (Body fld) [Moles/Vol] 84 mg/dL 0-130 [facility] No Panel InformationOrdered By: Dylon Murrieta on 10-13-2023 Estimated GFR (MDRD) Amer 41 mL/min >60 [facility] Comment on above: GFR Calc Estimated GFR (MDRD) Non-Af Amer 34 mL/min >60 [facility] Comment on above: Non- GFR Calc Hepatitis C Antibody Non-Reactive Nonreactive [facility] Comment on above: Non Reactive: < 0.8 Equivocal: >/= 0.8 to < 1.0 Reactive: >/= 1.0The CDC recommends that a reactive/equivocal HCV antibody result be followed up by the HCV Nucleic Acid Amplificationtest (696018) Vitamin D 25-Hydroxy 58.4 ng/mL [facility] Comment on above: Vitamin D 25(OH) Sta tus Range Deficiency <20 ng/mL (50nmol/L) Insufficiency 20 - 30 ng/mL (50 - 75 nmol/L) Sufficiency 30 - 100 ng/mL (75 - 250 nmol/L) Toxicity >100 ng/mL (>250 nmol/L) 30.8 pg 27.0-32.0 [facility] 31.7 g/dL 32-36 [facility] 188 K/mm3 150-450 [facility] 0 % 0-5 [facility] 34 mL/min >60 [facility] 41 mL/min >60 [facility] 14.2 RATIO 10-20 [facility] 4.1 g/dL 2.2-4.2 [facility] 0.8 RATIO 0.9-2.4 [facility] 70 U/L 45-117 [facility] 17 U/L 13-56 [facility] 30.0 mmol/L 21.0-32.0 [facility] 58.4 ng/mL [facility] Non-Reactive Nonreactive [facility] Platelet mean volume Magnus-Ec ker (Bld) [Entitic vol]Ordered By: Dylon Murrieta on 10-13-2023 Platelet mean volume (Bld) [Entitic vol] 10.5 fL 6.2-12.0 [facility] RBC Auto (Bld) [#/Vol]Ordere d By: Dylon Murrieta on 10-13-2023 RBC (Bld) [#/Vol] 3.93 10*6/uL 4.2-5.4 [facility] Serum or plasma calcium mariel urement (mass/volume)Ordered By: Dylon Murrieta 10-13-2023 Calcium [Mass/Vol] 8.9 mg/dL 8.5-10.1 [facility] Serum or plasma creatinine m easurement (mass/volume)Ordered By: Dylon Murrieta 10-13-2023 Creatinine [Mass/Vol] 1.62 mg/dL 0.55-1.02 [facility] Comment on above: The validity of the calculated GFR & GFRAA in patients over 70 years has not been determined. Clinical correlation is essential. Serum or plasma thyroid stim ulating hormone (TSH) measurement (units/volume)Ordered By: Dylon Murrieta on 10-13-2023 TSH Qn 3.22 uIU/mL 0.358-3.74 [facility] Serum or plasma urea nitroge n measurement (mass/volume)Ordered By: Dylon Murrieta 10-13-2023 Urea nitrogen [Mass/Vol] 23 mg/dL 7-18 [facility] Serum or plasma uric acid me asurement (mass/volume)Ordered By: Dylon Murrieta on 10-13-2023 Urate [Mass/Vol] 4.9 mg/dL 2.6-6.0 [facility] Comment on above: The drugs N-Acetylcy steine and Metamizole may falsely depress this assay. Thin prep Papanicolaou smear with manual screeningOrdered By: Dylon Murrieta on 10-13-2023 Thin prep Papanicolaou smear with manual screening 3.2 g/dL 3.2-5.0 [facility] Thin prep Papanicolaou smear with manual screening 17 U/L 15-37 [facility] Comment on above: Slight Hemolysis, Re sult may be falsely increased. Thin prep Papanicolaou smear with manual screening 5 5-15 [facility] Thin prep Papanicolaou smear with manual screening 11.2 mg/L NO RANGE EST. [facility] Urine albumin/creatinine rat io for detection of microalbuminuriaOrdered By: Dylon Murrieta on 10-13-2023 Albumin/Creatinine DL <= 1.0 mg/L (24H U) [Ratio] 22.6 mg/g CRE <30 [facility] Urine creatinine measurement (mass/volume)Ordered By: Dylon Murrieta on 10-13-2023 Creatinine (U) [Mass/Vol] 49.60 mg/dL NO RANGE EST. [facility] Very low density lipoprotein (VLDL) cholesterol measurementOrdered By: Dylon Murrieta on 10-13-2023 Cholesterol in VLDL Calc [Moles/Vol] 62 mg/dL 5-40 [facility] Whole blood hemoglobin A1c/t otal hemoglobin ratio (mass fraction)Ordered By: Dylon Murrieta on 10-13-2023 HbA1c (Bld) [Mass fraction] 7.4 % 3.8-5.6 [facility] Comment on above: Normal < 5.7 % Predi abetic 5.7 - 6.4 % Diabetic >or= 6.5 % Please note range changes. Absolute lymphocyte countOrd ered By: Reyna Champagne on 08-20-2023 Lymphocytes Auto (Unsp spec) [#/Vol] 0.53 10*3/uL 0.83-4.51 [facility] Basophil percentageOrdered B y: Reyna Champagne on 08-20-2023 Basophil percentage 95 mg/dL 74-106 [facility] Basophil percentage 6.3 g/dL 6.4-8.2 [facility] Basophil percentage 0.80 mg/dL 0.20-1.00 [facility] Basophil percentage 139 mmol/L 136-145 [facility] Basophil percentage 4.4 mmol/L 3.5-5.1 [facility] Basophil percentage 106 mmol/L 98-107 [facility] Basophils (Bld) [#/Vol] 6.5 10*3/uL 4.4-11.0 [facility] Basophils (Bld) [#/Vol] 4.8 10*3/uL 2.0-7.7 [facility] Basophils/100 WBC (Bld) 73.8 % 47-70 [facility] Basophils/100 WBC (Bld) 6.0 % 0-5 [facility] Basophils/100 WBC (Bld) 0.5 % 0-1 [facility] Blood erythrocytes count (nu mber/volume)Ordered By: Reyna Champagne on 08-20-2023 RBC (Bld) [#/Vol] 3.46 10*6/uL 4.2-5.4 [facility] Blood hemoglobin measurement (mass/volume)Ordered By: Reyna Champagne on 08-20-2023 Hemoglobin (Bld) [Mass/Vol] 10.8 g/dL 12.0-15.0 [facility] Blood lymphocytes/100 leukoc ytesOrdered By: Reyna Champagne on 08-20-2023 Lymphocytes/100 WBC (Bld) 8.1 % 19-41 [facility] Blood manual differential co mment interpretation (narrative result)Ordered By: Reyna Champagne on 08-20-2023 Manual differential comment Prashanth (Bld) [Interp] SCANNED [facility] Blood monocytes/100 leukocyt esOrdered By: Reyna Champagne on 08-20-2023 Monocytes/100 WBC (Bld) 10.4 % 0-10 [facility] Blood platelet mean volumeOr dered By: Reyna Champagne on 08-20-2023 Platelet mean volume (Bld) [Entitic vol] 10.6 fL 6.2-12.0 [facility] Determination of erythrocyte mean corpuscular volume (MCV)Ordered By: Reyna Champagne on 08-20-2023 MCV (RBC) [Entitic vol] 99.4 fL 81-99 [facility] Glucose Glucometer (BldC) [M ass/Vol]Ordered By: Reyna Champagne on 08-20-2023 Glucose [Mass/Vol] 94 mg/dL 74-106 [facility] Hematocrit Auto (Bld) [Volum e fraction]Ordered By: Reyna Champagne on 08-20-2023 Hematocrit (Bld) [Volume fraction] 34.4 % 37-47 [facility] MCHC Auto (RBC) [Mass/Vol]Or dered By: Reyna Champagne on 08-20-2023 MCHC (RBC) [Mass/Vol] 31.4 g/dL 32-36 [facility] No Panel InformationOrdered By: Reyna Champagne on 08-20-2023 31.2 pg 27.0-32.0 [facility] 14.9 % 11.6-14.6 [facility] 53.8 fl 35.1-43.9 [facility] 1.200 % 0.0-0.9 [facility] 0 % 0-5 [facility] 56 mL/min >60 [facility] 68 mL/min >60 [facility] 39.07 ml/min [facility] 13.5 RATIO 10-20 [facility] 4.0 g/dL 2.2-4.2 [facility] 168 U/L 45-117 [facility] 133 U/L 13-56 [facility] 29.0 mmol/L 21.0-32.0 [facility] Platelets bldOrdered By: Khushbu Champagne on 08-20-2023 Platelets (Bld) [#/Vol] 226 10*3/uL 150-450 [facility] Serum or plasma albumin mariel urement (mass/volume)Ordered By: Reyna Champagne on 08-20-2023 Albumin [Mass/Vol] 2.3 g/dL 3.2-5.0 [facility] Serum or plasma albumin/glob ulin mass ratioOrdered By: Reyna Champagne on 08-20-2023 Albumin/Globulin [Mass ratio] 0.6 {ratio} 0.9-2.4 [facility] Serum or plasma calcium mariel urement (mass/volume)Ordered By: Reyna Champagne on 08-20-2023 Calcium [Mass/Vol] 8.4 mg/dL 8.5-10.1 [facility] Serum or plasma creatinine m easurement (mass/volume)Ordered By: Reyna Champagne on 08-20-2023 Creatinine [Mass/Vol] 1.04 mg/dL 0.55-1.02 [facility] Serum or plasma urea nitroge n measurement (mass/volume)Ordered By: Reyna Champagne on 08-20-2023 Urea nitrogen [Mass/Vol] 14 mg/dL 7-18 [facility] Thin prep Papanicolaou smear with manual screeningOrdered By: Reyna Champagne on 08-20-2023 Thin prep Papanicolaou smear with manual screening 100 U/L 15-37 [facility] Thin prep Papanicolaou smear with manual screening 4 5-15 [facility] No Panel InformationOrdered By: Yvon Gaviria on 08-17-2023 16 U/L 13-75 [facility] Direct bilirubinOrdered By: Yvon Hogan on 08-16-2023 Bilirubin.direct [Mass/Vol] 0.25 mg/dL 0.00-0.30 [facility] No Panel InformationOrdered By: Yvon Gaviria on 08-16-2023 11 pg/mL 3.0-54.0 [facility] Basophil percentageOrdered B y: Yvon Hogan on 08-15-2023 Basophil percentage 2.3 mg/dL 2.5-4.9 [facility] No Panel InformationOrdered By: Yvon Hogan on 08-15-2023 2.4 mg/dL 1.6-2.6 [facility] Basophil percentageOrdered B y: Yvon Gaviria on 08-14-2023 Basophil percentage 38.0 umol/L [facility] Basophil percentage 128 mg/dL <200 [facility] Basophil percentage 130 mg/dL <199 [facility] No Panel InformationOrdered By: Yvon Gaviria on 08-14-2023 2.65 uIU/mL 0.358-3.74 [facility] Serum or plasma cholesterol in HDL measurement (mass/volume)Ordered By: Yvon Gaviria on 08-14-2023 Cholesterol in HDL [Mass/Vol] 45 mg/dL >40 [facility] Serum or plasma cholesterol in VLDL measurement (mass/volume)Ordered By: Yvon Gaviria on 08-14-2023 Cholesterol in VLDL [Mass/Vol] 26 mg/dL 5-40 [facility] Serum or plasma low density lipoprotein (LDL) cholesterol measurement (mass/volume)Ordered By: Yvon Gaviria on 08-14-2023 Cholesterol in LDL [Mass/Vol] 57 mg/dL 0-130 [facility] Absolute lymphocyte countOrd ered By: Eleazar Brooks on 08-13-2023 Lymphocytes Auto (Unsp spec) [#/Vol] 0.43 10*3/uL 0.83-4.51 [facility] Bacteria identified Cx Nom ( U)Ordered By: Eleazar Brooks on 08-13-2023 Culture, urine ESBL Escherichia coli [facility] Basophil percentageOrdered B y: Eleazar Brooks on 08-13-2023 Basophil percentage 5-10 SEEN /hpf 0-5 [facility] Basophil percentage 213 mg/dL 74-106 [facility] Basophil percentage 7.7 g/dL 6.4-8.2 [facility] Basophil percentage 1.50 mg/dL 0.20-1.00 [facility] Basophil percentage 136 mmol/L 136-145 [facility] Basophil percentage 3.5 mmol/L 3.5-5.1 [facility] Basophil percentage 104 mmol/L 98-107 [facility] [facility] Bas[facility] percentage 1.5 mmol/L 0.4-2.0 [facility] Basophils (Bld) [#/Vol] 9.2 10*3/uL 4.4-11.0 [facility] Basophils (Bld) [#/Vol] 7.8 10*3/uL 2.0-7.7 [facility] Basophils/100 WBC (Bld) 84.7 % 47-70 [facility] Basophils/100 WBC (Bld) 1.3 % 0-5 [facility] Basophils/100 WBC (Bld) 0.3 % 0-1 [facility] Bilirubin Test strip Ql (U)O rdered By: Eleazar Brooks on 08-13-2023 Bilirubin Ql (U) Negative Negative [facility] Blood erythrocytes count (nu mber/volume)Ordered By: Eleazar Brooks on 08-13-2023 RBC (Bld) [#/Vol] 3.70 10*6/uL 4.2-5.4 [facility] Blood hemoglobin measurement (mass/volume)Ordered By: Eleazar Brooks on 08-13-2023 Hemoglobin (Bld) [Mass/Vol] 11.3 g/dL 12.0-15.0 [facility] Blood lymphocytes/100 leukoc ytesOrdered By: Eleazar Brooks on 08-13-2023 Lymphocytes/100 WBC (Bld) 4.7 % 19-41 [facility] Blood manual differential co mment interpretation (narrative result)Ordered By: Eleazar Brooks on 08-13-2023 Manual differential comment Prashanth (Bld) [Interp] SCANNED [facility] Blood monocytes/100 leukocyt esOrdered By: Eleazar Brooks on 08-13-2023 Monocytes/100 WBC (Bld) 8.5 % 0-10 [facility] Blood platelet mean volumeOr dered By: Eleazar Brooks on 08-13-2023 Platelet mean volume (Bld) [Entitic vol] 10.8 fL 6.2-12.0 [facility] Determination of erythrocyte mean corpuscular volume (MCV)Ordered By: Eleazar Brooks on 08-13-2023 MCV (RBC) [Entitic vol] 98.9 fL 81-99 [facility] Hematocrit Auto (Bld) [Volum e fraction]Ordered By: Eleazar Brooks on 08-13-2023 Hematocrit (Bld) [Volume fraction] 36.6 % 37-47 [facility] Ketones Test strip Ql (U)Ord ered By: Eleazar Brooks on 08-13-2023 Ketones Ql (U) Negative Negative [facility] MCHC Auto (RBC) [Mass/Vol]Or dered By: Eleazar Brooks on 08-13-2023 MCHC (RBC) [Mass/Vol] 30.9 g/dL 32-36 [facility] Mucus LM Ql (Urine sed)Order ed By: Eleazar Brooks on 08-13-2023 Mucus Ql (Urine sed) 0 SEEN /hpf [facility] Nitrite Test strip Ql (U)Ord ered By: Eleazar Brooks on 08-13-2023 Nitrite Ql (U) Negative Negative [facility] No Panel InformationOrdered By: Eleazar Brooks on 08-13-2023 15 pg/mL 3.0-54.0 [facility] 30.5 pg 27.0-32.0 [facility] 15.2 % 11.6-14.6 [facility] 54.4 fl 35.1-43.9 [facility] 0.500 % 0.0-0.9 [facility] 0 % 0-5 [facility] 37 mL/min >60 [facility] 45 mL/min >60 [facility] 27.45 ml/min [facility] 14.2 RATIO 10-20 [facility] 4.7 g/dL 2.2-4.2 [facility] 141 U/L 45-117 [facility] 164 U/L 13-56 [facility] 30.0 mmol/L 21.0-32.0 [facility] No Panel InformationOrdered By: Yvon Gaviria on 08-13-2023 [facility] Negative < 50 ng/mL [facility] Platelets bldOrdered By: Eleazar Brooks on 08-13-2023 Platelets (Bld) [#/Vol] 206 10*3/uL 150-450 [facility] Protein Test strip Ql (U)Ord ered By: Eleazar Brooks on 08-13-2023 Protein Ql (U) 30 mg/dl Negative [facility] Serum or plasma albumin mariel urement (mass/volume)Ordered By: Eleazar Brooks on 08-13-2023 Albumin [Mass/Vol] 3.0 g/dL 3.2-5.0 [facility] Serum or plasma albumin/glob ulin mass ratioOrdered By: Eleazar Brooks on 08-13-2023 Albumin/Globulin [Mass ratio] 0.6 {ratio} 0.9-2.4 [facility] Serum or plasma calcium mariel urement (mass/volume)Ordered By: Eleazar Brooks on 08-13-2023 Calcium [Mass/Vol] 8.3 mg/dL 8.5-10.1 [facility] Serum or plasma creatinine m easurement (mass/volume)Ordered By: Eleazar Brooks on 08-13-2023 Creatinine [Mass/Vol] 1.48 mg/dL 0.55-1.02 [facility] Serum or plasma urea nitroge n measurement (mass/volume)Ordered By: Eleazar Brooks on 08-13-2023 Urea nitrogen [Mass/Vol] 21 mg/dL 7-18 [facility] Squamous epithelial cells de tection in urine sediment by light microscopyOrdered By: Eleazar Brooks on 08-13-2023 Epithelial cells.squamous LM Ql (Urine sed) 0-5 SEEN /hpf 5-10 [facility] Thin prep Papanicolaou smear with manual screeningOrdered By: Eleazar Brooks on 08-13-2023 Thin prep Papanicolaou smear with manual screening 149 U/L 15-37 [facility] Thin prep Papanicolaou smear with manual screening 2 5-15 [facility] Urine blood detectionOrdered By: Eleazar Brooks on 08-13-2023 RBC Ql (U) 25 /ul Negative [facility] RBC Ql (U) 0 SEEN /hpf 0-5 [facility] Urine clarityOrdered By: Eleazar Brooks on 08-13-2023 Clarity (U) Sl. Cloudy Clear [facility] Urine color determinationOrd ered By: Eleazar Brooks on 08-13-2023 Color (U) Yellow Yellow [facility] Urine glucose detectionOrder ed By: Eleazar Brooks on 08-13-2023 Glucose Ql (U) Normal mg/dl Normal [facility] Urine leukocyte esterase det ection by dipstickOrdered By: Eleazar Brooks on 08-13-2023 Leukocyte esterase Test strip Ql (U) 100 /ul Negative [facility] Urine pHOrdered By: Eleazar patel on 08-13-2023 pH (U) 5.0 [pH] 5.0 - 8.0 [facility] Urine phencyclidine (PCP) de tectionOrdered By: Yvon Gaviria on 08-13-2023 Phencyclidine Ql (U) Negative < 25 ng/mL [facility] Urine sediment bacteria coun t by microscopy (number/high power field)Ordered By: Eleazar Brooks on 08-13-2023 Bacteria LM.HPF (Urine sed) [#/Area] 3 /[HPF] None Seen [facility] Urine specific gravity measu rementOrdered By: Eleazar Brooks on 08-13-2023 Specific gravity (U) [Rel density] 1.015 1.002-1.030 [facility] Urobilinogen Auto test strip Ql (U)Ordered By: Eleazar Brooks on 08-13-2023 Urobilinogen Ql (U) 4 mg/dl Normal [facility] Whole blood hemoglobin A1c/t otal hemoglobin ratio (mass fraction)Ordered By: Yvon Gaviria on 08-13-2023 HbA1c (Bld) [Mass fraction] 7.1 % 3.8-5.6 [facility] Basophil percentageOrdered B y: Uma Vela on 07-02-2023 Basophil percentage 138 mg/dL 74-106 [facility] Basophil percentage 142 mmol/L 136-145 [facility] Basophil percentage 3.5 mmol/L 3.5-5.1 [facility] Basophil percentage 105 mmol/L 98-107 [facility] No Panel InformationOrdered By: Uma Vela on 07-02-2023 41 mL/min >60 [facility] 49 mL/min >60 [facility] 16.1 RATIO 10-20 [facility] 30.0 mmol/L 21.0-32.0 [facility] Serum or plasma calcium mariel urement (mass/volume)Ordered By: Uma Vela on 07-02-2023 Calcium [Mass/Vol] 8.7 mg/dL 8.5-10.1 [facility] Serum or plasma creatinine m easurement (mass/volume)Ordered By: Uma Vela on 07-02-2023 Creatinine [Mass/Vol] 1.37 mg/dL 0.55-1.02 [facility] Serum or plasma urea nitroge n measurement (mass/volume)Ordered By: Uma Vela on 07-02-2023 Urea nitrogen [Mass/Vol] 22 mg/dL 7-18 [facility] Thin prep Papanicolaou smear with manual screeningOrdered By: Uma Vela on 07-02-2023 Thin prep Papanicolaou smear with manual screening 7 5-15 [facility] Absolute lymphocyte countOrd ered By: Jim Huddleston on 06-10-2023 Lymphocytes Auto (Unsp spec) [#/Vol] 1.20 10*3/uL 0.83-4.51 [facility] Basophil percentageOrdered B y: Jim Huddleston on 06-10-2023 Basophil percentage 105 mg/dL 74-106 [facility] Basophil percentage 140 mmol/L 136-145 [facility] Basophil percentage 3.9 mmol/L 3.5-5.1 [facility] Basophil percentage 106 mmol/L 98-107 [facility] Chloride [Moles/Vol] 106 mmol/L 98-107 [facility] Glucose [Mass/Vol] 105 mg/dL 74-106 [facility] Comment on above: Fasting Glucose resu lt from 100 to 125 mg/dL suggests IMPAIRED HOMEOSTASIS per A.D.A. criteria. Potassium [Moles/Vol] 3.9 mmol/L 3.5-5.1 [facility] Sodium [Moles/Vol] 140 mmol/L 136-145 [facility] Basophils (Bld) [#/Vol] 8.3 10*3/uL 4.4-11.0 [facility] Basophils (Bld) [#/Vol] 5.8 10*3/uL 2.0-7.7 [facility] Basophils/100 WBC (Bld) 69.7 % 47-70 [facility] Basophils/100 WBC (Bld) 4.7 % 0-5 [facility] Basophils/100 WBC (Bld) 0.6 % 0-1 [facility] Eosinophils/100 WBC (Bld) 4.7 % 0-5 [facility] Neutrophils (Bld) [#/Vol] 5.8 10*3/uL 2.0-7.7 [facility] Neutrophils/100 WBC (Bld) 69.7 % 47-70 [facility] WBC (Bld) [#/Vol] 8.3 10*3/uL 4.4-11.0 [facility] Blood erythrocytes count (nu mber/volume)Ordered By: Jim Huddleston on 06-10-2023 RBC (Bld) [#/Vol] 4.16 10*6/uL 4.2-5.4 [facility] Blood hemoglobin measurement (mass/volume)Ordered By: Jim Huddleston on 06-10-2023 Hemoglobin (Bld) [Mass/Vol] 13.2 g/dL 12.0-15.0 [facility] Blood lymphocytes/100 leukoc ytesOrdered By: Jim Huddleston on 06-10-2023 Lymphocytes/100 WBC (Bld) 14.5 % 19-41 [facility] Blood monocytes/100 leukocyt esOrdered By: Jim Huddleston on 06-10-2023 Monocytes/100 WBC (Bld) 9.7 % 0-10 [facility] Blood platelet mean volumeOr dered By: Jim Huddleston on 06-10-2023 Platelet mean volume (Bld) [Entitic vol] 11.1 fL 6.2-12.0 [facility] Determination of erythrocyte mean corpuscular volume (MCV)Ordered By: Jim Huddleston on 06-10-2023 MCV (RBC) [Entitic vol] 99.8 fL 81-99 [facility] Hematocrit Auto (Bld) [Volum e fraction]Ordered By: Jim Huddleston on 06-10-2023 Hematocrit (Bld) [Volume fraction] 41.5 % 37-47 [facility] - Chemistry and C hemistry - challengeOrdered By: Jim Huddleston on 06-10-2023 CO2 [Moles/Vol] 32.0 mmol/L 21.0-32.0 [facility] Urea nitrogen/Creatinine [Mass ratio] 16.8 mg/mg 10-20 [facility] - Hematology and Cell countsOrdered By: Jim Huddleston on 06-10-2023 Erythrocyte distribution width (RBC) [Entitic vol] 52.0 fL 35.1-43.9 [facility] Erythrocyte distribution width (RBC) [Ratio] 14.4 % 11.6-14.6 [facility] Immature granulocytes/100 WBC (Bld) 0.800 % 0.0-0.9 [facility] Comment on above: IG% - Immature Granu locytes (promyelocytes, myelocytes and metamyelocytes) > 1% indicates that a LEFT SHIFT is Present. MCH (RBC) [Entitic mass] 31.7 pg 27.0-32.0 [facility] Nucleated RBC/100 WBC (Bld) [Ratio] 0 % 0-5 [facility] Auto (RBC) [Mass/Vol]Or dered By: Jim Huddleston on 06-10-2023 MCHC (RBC) [Mass/Vol] 31.8 g/dL 32-36 [facility] No Panel InformationOrdered By: Jim Huddleston on 06-10-2023 Troponin I High Sensitivity 11 pg/mL 3.0-54.0 [facility] Comment on above: Please Note: New [place] t Units and Gender Specific Reference Ranges. For more information see Policy Stat Procedure Cascade High Sensitivity Troponin (TNIH) and attachments. 11 pg/mL 3.0-54.0 [facility] Estimated Creatinine Clearance Calc 28.41 ml/min [facility] Estimated GFR (MDRD) Amer 47 mL/min >60 [facility] Comment on above: GFR Calc Estimated GFR (MDRD) Non-Af Amer 39 mL/min >60 [facility] Comment on above: Non- GFR Calc 39 mL/min >60 [facility] 47 mL/min >60 [facility] 28.41 ml/min [facility] 16.8 RATIO 10-20 [facility] 32.0 mmol/L 21.0-32.0 [facility] 31.7 pg 27.0-32.0 [facility] 14.4 % 11.6-14.6 [facility] 52.0 fl 35.1-43.9 [facility] 0.800 % 0.0-0.9 [facility] 0 % 0-5 [facility] Platelets bldOrdered By: Cristina Huddleston on 06-10-2023 Platelets (Bld) [#/Vol] 276 10*3/uL 150-450 [facility] Serum or plasma calcium mariel urement (mass/volume)Ordered By: Jim Huddleston on 06-10-2023 Calcium [Mass/Vol] 8.6 mg/dL 8.5-10.1 [facility] Serum or plasma creatinine m easurement (mass/volume)Ordered By: Jim Huddleston on 06-10-2023 Creatinine [Mass/Vol] 1.43 mg/dL 0.55-1.02 [facility] Comment on above: The validity of the calculated GFR & GFRAA in patients over 70 years has not been determined. Clinical correlation is essential. Serum or plasma urea nitroge n measurement (mass/volume)Ordered By: Jim Huddleston on 06-10-2023 Urea nitrogen [Mass/Vol] 24 mg/dL 7-18 [facility] Thin prep Papanicolaou smear with manual screeningOrdered By: Jim Huddleston on 06-10-2023 Thin prep Papanicolaou smear with manual screening 2 5-15 [facility] Absolute lymphocyte countOrd ered By: Roger Yang on 06-05-2023 Lymphocytes Auto (Unsp spec) [#/Vol] 0.73 10*3/uL 0.83-4.51 [facility] Basophil percentageOrdered B y: Tarun Kennedy on 06-05-2023 Basophil percentage 168 mg/dL 74-106 [facility] Basophil percentage 6.5 g/dL 6.4-8.2 [facility] Basophil percentage 1.10 mg/dL 0.20-1.00 [facility] Basophil percentage 142 mmol/L 136-145 [facility] Basophil percentage 3.6 mmol/L 3.5-5.1 [facility] Basophil percentage 106 mmol/L 98-107 [facility] Bilirubin [Mass/Vol] 1.10 mg/dL 0.20-1.00 [facility] Comment on above: For patients on eltr ombopag therapy, use of Dimension Cascade TBIL is not recommended. Chloride [Moles/Vol] 106 mmol/L 98-107 [facility] Glucose [Mass/Vol] 168 mg/dL 74-106 [facility] Comment on above: Fasting Glucose resu lt greater than or equal to 126 mg/dL suggests DIABETES MELLITUS per A.D.A. criteria. Potassium [Moles/Vol] 3.6 mmol/L 3.5-5.1 [facility] Protein [Mass/Vol] 6.5 g/dL 6.4-8.2 [facility] Sodium [Moles/Vol] 142 mmol/L 136-145 [facility] Basophil percentageOrdered B y: Roger Yang on 06-05-2023 Basophils (Bld) [#/Vol] 6.9 10*3/uL 4.4-11.0 [facility] Basophils (Bld) [#/Vol] 5.0 10*3/uL 2.0-7.7 [facility] Basophils/100 WBC (Bld) 0.3 % 0-1 [facility] Basophils/100 WBC (Bld) 72.2 % 47-70 [facility] Basophils/100 WBC (Bld) 4.1 % 0-5 [facility] Eosinophils/100 WBC (Bld) 4.1 % 0-5 [facility] Neutrophils (Bld) [#/Vol] 5.0 10*3/uL 2.0-7.7 [facility] Neutrophils/100 WBC (Bld) 72.2 % 47-70 [facility] WBC (Bld) [#/Vol] 6.9 10*3/uL 4.4-11.0 [facility] Blood erythrocytes count (nu mber/volume)Ordered By: Roger Yang on 06-05-2023 RBC (Bld) [#/Vol] 3.73 10*6/uL 4.2-5.4 [facility] Blood hemoglobin measurement (mass/volume)Ordered By: Roger Yang on 06-05-2023 Hemoglobin (Bld) [Mass/Vol] 11.5 g/dL 12.0-15.0 [facility] Blood lymphocytes/100 leukoc ytesOrdered By: Roger Yang on 06-05-2023 Lymphocytes/100 WBC (Bld) 10.6 % 19-41 [facility] Blood monocytes/100 leukocyt esOrdered By: Roger Yang on 06-05-2023 Monocytes/100 WBC (Bld) 12.2 % 0-10 [facility] Blood platelet mean volumeOr dered By: Roger Yang on 06-05-2023 Platelet mean volume (Bld) [Entitic vol] 10.0 fL 6.2-12.0 [facility] Determination of erythrocyte mean corpuscular volume (MCV)Ordered By: Roger Yang on 06-05-2023 MCV (RBC) [Entitic vol] 97.9 fL 81-99 [facility] Glucose Glucometer (BldC) [M ass/Vol]Ordered By: Roger Yang on 06-05-2023 Glucose [Mass/Vol] 194 mg/dL 74-106 [facility] Comment on above: MANAGEMENT OF PATIEN T CARE PER NURSING PROTOCOL Hematocrit Auto (Bld) [Volum e fraction]Ordered By: Roger Yang on 06-05-2023 Hematocrit (Bld) [Volume fraction] 36.5 % 37-47 [facility] - Chemistry and C hemistry - challengeOrdered By: Tarun Kennedy on 06-05-2023 ALP [Catalytic activity/Vol] 79 U/L 45-117 [facility] ALT [Catalytic activity/Vol] 21 U/L 13-56 [facility] CO2 [Moles/Vol] 32.0 mmol/L 21.0-32.0 [facility] Globulin (S) [Mass/Vol] 4.0 g/dL 2.2-4.2 [facility] Urea nitrogen/Creatinine [Mass ratio] 15.2 mg/mg 10-20 [facility] - Hematology and Cell countsOrdered By: Roger Yang on 06-05-2023 Erythrocyte distribution width (RBC) [Entitic vol] 50.3 fL 35.1-43.9 [facility] Erythrocyte distribution width (RBC) [Ratio] 14.2 % 11.6-14.6 [facility] Immature granulocytes/100 WBC (Bld) 0.600 % 0.0-0.9 [facility] Comment on above: IG% - Immature Granu locytes (promyelocytes, myelocytes and metamyelocytes) > 1% indicates that a LEFT SHIFT is Present. MCH (RBC) [Entitic mass] 30.8 pg 27.0-32.0 [facility] Nucleated RBC/100 WBC (Bld) [Ratio] 0 % 0-5 [facility] MCHC Auto (RBC) [Mass/Vol]Or dered By: Roger Yang on 06-05-2023 MCHC (RBC) [Mass/Vol] 31.5 g/dL 32-36 [facility] No Panel InformationOrdered By: Tarun Kennedy on 06-05-2023 Estimated Creatinine Clearance Calc 36.28 ml/min [facility] Estimated GFR (MDRD) Amer 62 mL/min >60 [facility] Comment on above: GFR Calc Estimated GFR (MDRD) Non-Af Amer 51 mL/min >60 [facility] Comment on above: Non- GFR Calc 51 mL/min >60 [facility] 62 mL/min >60 [facility] 36.28 ml/min [facility] 15.2 RATIO 10-20 [facility] 4.0 g/dL 2.2-4.2 [facility] 79 U/L 45-117 [facility] 21 U/L 13-56 [facility] 32.0 mmol/L 21.0-32.0 [facility] No Panel InformationOrdered By: Roger Yang on 06-05-2023 30.8 pg 27.0-32.0 [facility] 14.2 % 11.6-14.6 [facility] 50.3 fl 35.1-43.9 [facility] 0.600 % 0.0-0.9 [facility] 0 % 0-5 [facility] Platelets bldOrdered By: Roberth Yang on 06-05-2023 Platelets (Bld) [#/Vol] 180 10*3/uL 150-450 [facility] Serum or plasma albumin mariel urement (mass/volume)Ordered By: Tarun Kennedy on 06-05-2023 Albumin [Mass/Vol] 2.5 g/dL 3.2-5.0 [facility] Serum or plasma albumin/glob ulin mass ratioOrdered By: Tarun Kennedy on 06-05-2023 Albumin/Globulin [Mass ratio] 0.6 {ratio} 0.9-2.4 [facility] Serum or plasma calcium mariel urement (mass/volume)Ordered By: Tarun Kennedy on 06-05-2023 Calcium [Mass/Vol] 8.7 mg/dL 8.5-10.1 [facility] Serum or plasma creatinine m easurement (mass/volume)Ordered By: Tarun Kennedy on 06-05-2023 Creatinine [Mass/Vol] 1.12 mg/dL 0.55-1.02 [facility] Comment on above: The validity of the calculated GFR & GFRAA in patients over 70 years has not been determined. Clinical correlation is essential. Serum or plasma urea nitroge n measurement (mass/volume)Ordered By: Tarun Kennedy on 06-05-2023 Urea nitrogen [Mass/Vol] 17 mg/dL 7-18 [facility] Thin prep Papanicolaou smear with manual screeningOrdered By: Tarun Kennedy on 06-05-2023 Thin prep Papanicolaou smear with manual screening 19 U/L 15-37 [facility] Thin prep Papanicolaou smear with manual screening 4 5-15 [facility] Direct bilirubinOrdered By: Maria Fernanda Moss on 06-03-2023 Bilirubin.direct [Mass/Vol] 0.42 mg/dL 0.00-0.30 [facility] - Chemistry and C hemistry - challengeOrdered By: Maria Fernanda Moss on 06-03-2023 Lipase [Catalytic activity/Vol] 21 U/L [facility] Comment on above: Please note:LIPASE r evised reference range effective 22. New Lipase methodology. Expected to produce lower values than the previous assay method. NEW Reference Range: 13 - 75 U/L No Panel InformationOrdered By: Yared Fernández on 06-03-2023 Troponin I High Sensitivity 9 pg/mL 3.0-54.0 [facility] Comment on above: Please Note: New [place] t Units and Gender Specific Reference Ranges. For more information see Policy Stat Procedure Cascade High Sensitivity Troponin (TNIH) and attachments. 9 pg/mL 3.0-54.0 [facility] No Panel InformationOrdered By: Maria Fernanda Moss on 06-03-2023 21 U/L [facility] HEMOGLOBIN A1C (POC)on 05-13 HbA1c (Bld) [Mass fraction] 7.9 % Abnormal 4.2 - 5.6 % [facility] Absolute lymphocyte countOrd ered By: Maria Fernanda Moss on 04-23-2023 Lymphocytes Auto (Unsp spec) [#/Vol] 1.30 10*3/uL 0.83-4.51 [facility] Basophil percentageOrdered B y: Maria Fernanda Moss on 04-23-2023 Basophil percentage 152 mg/dL 74-106 [facility] Basophil percentage 139 mmol/L 136-145 [facility] Basophil percentage 3.7 mmol/L 3.5-5.1 [facility] Basophil percentage 103 mmol/L 98-107 [facility] Basophils (Bld) [#/Vol] 7.3 10*3/uL 4.4-11.0 [facility] Basophils (Bld) [#/Vol] 4.9 10*3/uL 2.0-7.7 [facility] Basophils/100 WBC (Bld) 0.4 % 0-1 [facility] Basophils/100 WBC (Bld) 67.1 % 47-70 [facility] Basophils/100 WBC (Bld) 4.2 % 0-5 [facility] Chloride [Moles/Vol] 103 mmol/L 98-107 [facility] Eosinophils/100 WBC (Bld) 4.2 % 0-5 [facility] Glucose [Mass/Vol] 152 mg/dL 74-106 [facility] Comment on above: Fasting Glucose resu lt greater than or equal to 126 mg/dL suggests DIABETES MELLITUS per A.D.A. criteria. Neutrophils (Bld) [#/Vol] 4.9 10*3/uL 2.0-7.7 [facility] Neutrophils/100 WBC (Bld) 67.1 % 47-70 [facility] Potassium [Moles/Vol] 3.7 mmol/L 3.5-5.1 [facility] Sodium [Moles/Vol] 139 mmol/L 136-145 [facility] WBC (Bld) [#/Vol] 7.3 10*3/uL 4.4-11.0 [facility] Blood erythrocytes count (nu mber/volume)Ordered By: Maria Fernanda Moss on 04-23-2023 RBC (Bld) [#/Vol] 4.53 10*6/uL 4.2-5.4 [facility] Blood hemoglobin measurement (mass/volume)Ordered By: Maria Fernanda Moss on 04-23-2023 Hemoglobin (Bld) [Mass/Vol] 14.0 g/dL 12.0-15.0 [facility] Blood lymphocytes/100 leukoc ytesOrdered By: Maria Fernanda Moss on 04-23-2023 Lymphocytes/100 WBC (Bld) 17.7 % 19-41 [facility] Blood monocytes/100 leukocyt esOrdered By: Maria Fernanda Moss on 04-23-2023 Monocytes/100 WBC (Bld) 9.8 % 0-10 [facility] Blood platelet mean volumeOr dered By: Maria Fernanda Moss on 04-23-2023 Platelet mean volume (Bld) [Entitic vol] 10.3 fL 6.2-12.0 [facility] Determination of erythrocyte mean corpuscular volume (MCV)Ordered By: Maria Fernanda Moss on 04-23-2023 MCV (RBC) [Entitic vol] 96.0 fL 81-99 [facility] Hematocrit Auto (Bld) [Volum e fraction]Ordered By: Maria Fernanda Moss on 04-23-2023 Hematocrit (Bld) [Volume fraction] 43.5 % 37-47 [facility] - Chemistry and C hemistry - challengeOrdered By: Maria Fernanda Moss on 04-23-2023 CO2 [Moles/Vol] 32.0 mmol/L 21.0-32.0 [facility] Urea nitrogen/Creatinine [Mass ratio] 18.7 mg/mg 10-20 [facility] - Hematology and Cell countsOrdered By: Maria Fernanda Moss on 04-23-2023 Erythrocyte distribution width (RBC) [Entitic vol] 47.5 fL 35.1-43.9 [facility] Erythrocyte distribution width (RBC) [Ratio] 13.4 % 11.6-14.6 [facility] Immature granulocytes/100 WBC (Bld) 0.800 % 0.0-0.9 [facility] Comment on above: IG% - Immature Granu locytes (promyelocytes, myelocytes and metamyelocytes) > 1% indicates that a LEFT SHIFT is Present. MCH (RBC) [Entitic mass] 30.9 pg 27.0-32.0 [facility] Nucleated RBC/100 WBC (Bld) [Ratio] 0 % 0-5 [facility] MCHC Auto (RBC) [Mass/Vol]Or dered By: Maria Fernanda Moss on 04-23-2023 MCHC (RBC) [Mass/Vol] 32.2 g/dL 32-36 [facility] No Panel InformationOrdered By: Maria Fernanda Moss on 04-23-2023 Troponin I High Sensitivity 9 pg/mL 3.0-54.0 [facility] Comment on above: Please Note: New [place] t Units and Gender Specific Reference Ranges. For more information see Policy Stat Procedure Cascade High Sensitivity Troponin (TNIH) and attachments. 9 pg/mL 3.0-54.0 [facility] Estimated Creatinine Clearance Calc 33.03 ml/min [facility] Estimated GFR (MDRD) Amer 56 mL/min >60 [facility] Comment on above: GFR Calc Estimated GFR (MDRD) Non-Af Amer 46 mL/min >60 [facility] Comment on above: Non- GFR Calc 30.9 pg 27.0-32.0 [facility] 13.4 % 11.6-14.6 [facility] 47.5 fl 35.1-43.9 [facility] 0.800 % 0.0-0.9 [facility] 0 % 0-5 [facility] 46 mL/min >60 [facility] 56 mL/min >60 [facility] 33.03 ml/min [facility] 18.7 RATIO 10-20 [facility] 32.0 mmol/L 21.0-32.0 [facility] Platelets bldOrdered By: Zaira Moss on 04-23-2023 Platelets (Bld) [#/Vol] 196 10*3/uL 150-450 [facility] Serum or plasma calcium mariel urement (mass/volume)Ordered By: Maria Fernanda Moss on 04-23-2023 Calcium [Mass/Vol] 9.3 mg/dL 8.5-10.1 [facility] Serum or plasma creatinine m easurement (mass/volume)Ordered By: Maria Fernanda Moss on 04-23-2023 Creatinine [Mass/Vol] 1.23 mg/dL 0.55-1.02 [facility] Comment on above: The validity of the calculated GFR & GFRAA in patients over 70 years has not been determined. Clinical correlation is essential. Serum or plasma urea nitroge n measurement (mass/volume)Ordered By: Maria Fernanda Moss on 04-23-2023 Urea nitrogen [Mass/Vol] 23 mg/dL 7-18 [facility] Thin prep Papanicolaou smear with manual screeningOrdered By: Maria Fernanda Moss on 04-23-2023 Thin prep Papanicolaou smear with manual screening 4 5-15 [facility] CBC W Auto Differential pane l (Bld)on 03-18-2023 Basophils (Bld) [#/Vol] 0.04 10*3/uL <0.11 k/uL [facility] Basophils/100 WBC (Bld) 0.5 % [facility] Differential cell count method Nom (Bld) Auto [facility] Eosinophils (Bld) [#/Vol] 0.39 10*3/uL <0.46 k/uL [facility] Eosinophils/100 WBC (Bld) 4.8 % [facility] Erythrocyte distribution width (RBC) [Ratio] 13.8 % 11.5 - 15.0 % [facility] Hematocrit (Bld) [Volume fraction] 42.7 % 36.0 - 46.0 % [facility] Hemoglobin (Bld) [Mass/Vol] 13.3 g/dL 11.5 - 15.5 g/dL [facility] Immature granulocytes (Bld) [#/Vol] 0.06 10*3/uL <0.10 k/uL [facility] Immature granulocytes/100 WBC (Bld) 0.7 % [facility] Lymphocytes (Bld) [#/Vol] 1.41 10*3/uL 1.00 - 4.00 k/uL [facility] Lymphocytes/100 WBC (Bld) 17.3 % [facility] MCH (RBC) [Entitic mass] 31.9 pg 26.0 - 34.0 pg [facility] MCHC (RBC) [Mass/Vol] 31.1 g/dL 30.5 - 36.0 g/dL [facility] MCV (RBC) [Entitic vol] 102.4 fL High 80.0 - 100.0 fL [facility] Monocytes (Bld) [#/Vol] 0.77 10*3/uL <0.87 k/uL [facility] Monocytes/100 WBC (Bld) 9.4 % [facility] Neutrophils (Bld) [#/Vol] 5.50 10*3/uL 1.45 - 7.50 k/uL [facility] Neutrophils/100 WBC (Bld) 67.3 % [facility] Nucleated RBC (Bld) [#/Vol] <0.01 k/uL [facility] Nucleated RBC/100 WBC (Bld) [Ratio] 0.0 /100 WBC [facility] Platelet mean volume (Bld) [Entitic vol] 11.2 fL 9.0 - 12.7 fL [facility] Platelets (Bld) [#/Vol] 207 10*3/uL 150 - 400 k/uL [facility] RBC (Bld) [#/Vol] 4.17 10*6/uL 3.90 - 5.2 0 m/uL [facility] WBC (Bld) [#/Vol] 8.17 10*3/uL 3.70 - 11. 00 k/uL [facility] XR Knee - bilateral 4 Viewso n 02-28-2023 IMPRESSION: No acute osseous abnormality Reporting Coordinator: ALLEGRA Transcribe Date/Time: Feb 28 2023 1:41P Dictated by : CHLOE BENAVIDES MD This examination was interpreted and the report reviewed and electronically signed by: CHLOE BENAVIDES MD on Feb 28 2023 1:43PM [facility] DIVISION OF RADIOLOGY * * *Final Report* * * DATE OF EXAM: Feb 28 2023 1:20PM WOX [id number] - XR KNEE 4V AP/PA/LAT/MERCH NIRU / PROCEDURE REASON: multiple diagnoses * * * * Physician Interpretation * * * * EXAMINATION: XR KNEE 4V AP/PA/LAT/MERCH NIRU CLINICAL HISTORY: Knee pain after fall Technique: XR KNEE 4V AP/PA/LAT/MERCH NIRU -- BILATERAL with 4 each views on 5 images Comparison: None RESULT: No acute fracture or dislocation. Narrowing of the medial compartment of the right knee. Right patellofemoral compartment marginal osteophytes. 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 Intramedullary kaylan in the left femur. DIVISION OF RADIOLOGY Provider, [facility] - 02/28/2023 * * *Final Report* * * DATE OF EXAM: Feb 28 2023 1:20PM WOX 5618 - XR KNEE 4V AP/PA/LAT/MERCH NIRU / PROCEDURE REASON: multiple diagnoses * * * * Physician Interpretation * * * * EXAMINATION: XR KNEE 4V AP/PA/LAT/MERCH NIRU CLINICAL HISTORY: Knee pain after fall Technique: XR KNEE 4V AP/PA/LAT/MERCH NIRU -- BILATERAL with 4 each views on 5 images Comparison: None RESULT: No acute fracture or dislocation. Narrowing of the medial compartment of the right knee. Right patellofemoral compartment marginal osteophytes. 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 Intramedullary kaylan in the left femur. IMPRESSION IMPRESSION: No acute osseous abnormality Reporting Coordinator: [facility] Transcribe Date/Time: Feb 28 2023 1:41P Dictated by : CHLOE BENAVIDES MD This examination was interpreted and the report reviewed and electronically signed by: CHLOE BENAVIDES MD on Feb 28 2023 1:43PM [facility] Radiology Study observation (narrative) [facility] XR Knee - bilateral 4 ViewsO rdered By: [facility] Provider on 02-28-2023 [facility] XR Chest PA and Lateralon IMPRESSION: No acute radiographic abnormality in the lungs. Cardiomegaly/enlargement of the cardiac silhouette. Reporting Coordinator: [facility] Transcribe Date/Time: Feb 06 2023 4:34P Dictated by : LEAH GORDON MD This examination was interpreted and the report reviewed and electronically signed by: LEAH GORDON MD on Feb 06 2023 4:35PM [facility] DIVISION OF RADIOLOGY * * *Final Report* * * DATE OF EXAM: Feb 06 2023 4:30PM WOX 5291 - XR CHEST 2V FRONTAL/LAT / PROCEDURE REASON: Bronchitis * * * * Physician Interpretation * * * * EXAMINATION: CHEST RADIOGRAPH (2 VIEW FRONTAL & LATERAL) CLINICAL HISTORY: Bronchitis MQ: XC2_6 EXAM DATE/TIME: 02/06/2023 4:30 PM COMPARISON: Chest x-ray on 09/27/2022 RESULT: Lines, tubes, and devices: None. Lungs and pleura: No consolidation. No lung mass. No pleural effusion. No pneumothorax. Cardiomediastinal silhouette: There is cardiomegaly/enlargement of the cardiac silhouette. Bones and soft tissues: The spine shows exaggerated kyphosis and degenerative changes. DIVISION OF RADIOLOGY Provider, [facility] - 02/06/2023 * * *Final Report* * * DATE OF EXAM: Feb 06 2023 4:30PM WOX 5291 - XR CHEST 2V FRONTAL/LAT / PROCEDURE REASON: Bronchitis * * * * Physician Interpretation * * * * EXAMINATION: CHEST RADIOGRAPH (2 VIEW FRONTAL & LATERAL) CLINICAL HISTORY: Bronchitis MQ: XC2_6 EXAM DATE/TIME: 02/06/2023 4:30 PM COMPARISON: Chest x-ray on 09/27/2022 RESULT: Lines, tubes, and devices: None. Lungs and pleura: No consolidation. No lung mass. No pleural effusion. No pneumothorax. Cardiomediastinal silhouette: There is cardiomegaly/enlargement of the cardiac silhouette. Bones and soft tissues: The spine shows exaggerated kyphosis and degenerative changes. IMPRESSION IMPRESSION: No acute radiographic abnormality in the lungs. Cardiomegaly/enlargement of the cardiac silhouette. Reporting Coordinator: [facility] Transcribe Date/Time: Feb 06 2023 4:34P Dictated by : LEAH GORDON MD This examination was interpreted and the report reviewed and electronically signed by: LEAH GORDON MD on Feb 06 2023 4:35PM EST [facility] Radiology Study observation (narrative) [facility] XR Chest PA and LateralOrder ed By: [facility] Provider on 02-06-2023 [facility] Absolute lymphocyte countOrd ered By: Dr. Regaldao on 2023 Lymphocytes Auto (Unsp spec) [#/Vol] 1.01 10*3/uL 0.83-4.51 [facility] Basophil percentageOrdered B y: Dr. Regalado on 2023 Basophil percentage 0-5 SEEN /hpf 0-5 [facility] Basophil percentage 112 mg/dL 74-106 [facility] Basophil percentage 137 mmol/L 136-145 [facility] Basophil percentage 3.6 mmol/L 3.5-5.1 [facility] Basophil percentage 107 mmol/L 98-107 [facility] Basophils (Bld) [#/Vol] 6.6 10*3/uL 4.4-11.0 [facility] Basophils (Bld) [#/Vol] 4.8 10*3/uL 2.0-7.7 [facility] Basophils/100 WBC (Bld) 72.5 % 47-70 [facility] Basophils/100 WBC (Bld) 2.3 % 0-5 [facility] Basophils/100 WBC (Bld) 0.3 % 0-1 [facility] Basophil percentageOrdered B y: Alex Regalado on 2023 Chloride [Moles/Vol] 107 mmol/L 98-107 [facility] Eosinophils/100 WBC (Bld) 2.3 % 0-5 [facility] Glucose [Mass/Vol] 112 mg/dL 74-106 [facility] Comment on above: Fasting Glucose resu lt from 100 to 125 mg/dL suggests IMPAIRED HOMEOSTASIS per A.D.A. criteria. Neutrophils (Bld) [#/Vol] 4.8 10*3/uL 2.0-7.7 [facility] Neutrophils/100 WBC (Bld) 72.5 % 47-70 [facility] Potassium [Moles/Vol] 3.6 mmol/L 3.5-5.1 [facility] Sodium [Moles/Vol] 137 mmol/L 136-145 [facility] WBC (Bld) [#/Vol] 6.6 10*3/uL 4.4-11.0 [facility] Bilirubin Test strip Ql (U)O rdered By: Dr. Regalado on 2023 Bilirubin Ql (U) Negative Negative [facility] Blood erythrocytes count (nu mber/volume)Ordered By: Dr. Regalado on 2023 RBC (Bld) [#/Vol] 4.48 10*6/uL 4.2-5.4 [facility] Blood hemoglobin measurement (mass/volume)Ordered By: Dr. Regalado on 2023 Hemoglobin (Bld) [Mass/Vol] 13.7 g/dL 12.0-15.0 [facility] Blood lymphocytes/100 leukoc ytesOrdered By: Dr. Regalado on 2023 Lymphocytes/100 WBC (Bld) 15.4 % 19-41 [facility] Blood monocytes/100 leukocyt esOrdered By: Dr. Regalado on 2023 Monocytes/100 WBC (Bld) 9.0 % 0-10 [facility] Blood platelet mean volumeOr dered By: Dr. Regalado on 2023 Platelet mean volume (Bld) [Entitic vol] 10.7 fL 6.2-12.0 [facility] Determination of erythrocyte mean corpuscular volume (MCV)Ordered By: Dr. Regalado on 2023 MCV (RBC) [Entitic vol] 98.9 fL 81-99 [facility] Hematocrit Auto (Bld) [Volum e fraction]Ordered By: Dr. Regalado on 2023 Hematocrit (Bld) [Volume fraction] 44.3 % 37-47 [facility] Influenza virus A and B and SARS-CoV-2 (COVID-19) Ag panel - Upper respiratory specimOrdered By: Alex Regalado on 2023 SARS-CoV-2 (COVID-19) RNA SANDRA+probe Ql (Resp) [facility] Influenza virus A and B and SARS-CoV-2 (COVID-19) Ag panel - Upper respiratory specimOrdered By: Dr. Regalado on 2023 SARS-CoV-2 (COVID-19) RNA SANDRA+probe Ql (Resp) [facility] Ketones Test strip Ql (U)Ord ered By: Dr. Regalado on 2023 Ketones Ql (U) Negative Negative [facility] Laboratory - Chemistry and C hemistry - challengeOrdered By: Alex Regalado on 2023 CO2 [Moles/Vol] 29.0 mmol/L 21.0-32.0 [facility] Urea nitrogen/Creatinine [Mass ratio] 21.0 mg/mg 10-20 [facility] Laboratory - Hematology and Cell countsOrdered By: Alex Regalado on 2023 Erythrocyte distribution width (RBC) [Entitic vol] 54.6 fL 35.1-43.9 [facility] Erythrocyte distribution width (RBC) [Ratio] 15.0 % 11.6-14.6 [facility] Immature granulocytes/100 WBC (Bld) 0.500 % 0.0-0.9 [facility] Comment on above: IG% - Immature Granu locytes (promyelocytes, myelocytes and metamyelocytes) > 1% indicates that a LEFT SHIFT is Present. MCH (RBC) [Entitic mass] 30.6 pg 27.0-32.0 [facility] Nucleated RBC/100 WBC (Bld) [Ratio] 0 % 0-5 [facility] MCHC Auto (RBC) [Mass/Vol]Or dered By: Dr. Regalado on 2023 MCHC (RBC) [Mass/Vol] 30.9 g/dL 32-36 [facility] Mucus LM Ql (Urine sed)Order ed By: Dr. Regalado on 2023 Mucus Ql (Urine sed) 0 SEEN /hpf [facility] Nitrite Test strip Ql (U)Ord ered By: Dr. Regalado on 2023 Nitrite Ql (U) Negative Negative [facility] No Panel InformationOrdered By: Alex Regalado on 2023 Estimated Creatinine Clearance Calc 34.14 ml/min [facility] Estimated GFR (MDRD) Amer 58 mL/min >60 [facility] Comment on above: GFR Calc Estimated GFR (MDRD) Non-Af Amer 48 mL/min >60 [facility] Comment on above: Non- GFR Calc Troponin I High Sensitivity 13 pg/mL 3.0-54.0 [facility] Comment on above: Please Note: New [place] t Units and Gender Specific Reference Ranges. For more information see Policy Stat Procedure Cascade High Sensitivity Troponin (TNIH) and attachments. No Panel InformationOrdered By: Dr. Regalado on 2023 30.6 pg 27.0-32.0 [facility] 15.0 % 11.6-14.6 [facility] 54.6 fl 35.1-43.9 [facility] 0.500 % 0.0-0.9 [facility] 0 % 0-5 [facility] 48 mL/min >60 [facility] 58 mL/min >60 [facility] 34.14 ml/min [facility] 21.0 RATIO 10-20 [facility] 13 pg/mL 3.0-54.0 [facility] 29.0 mmol/L 21.0-32.0 [facility] Platelets bldOrdered By: Dr. Regalado on 2023 Platelets (Bld) [#/Vol] 168 10*3/uL 150-450 [facility] Protein Test strip Ql (U)Ord ered By: Dr. Regalado on 2023 Protein Ql (U) 30 mg/dl Negative [facility] Serum or plasma calcium mariel urement (mass/volume)Ordered By: Dr. Regalado on 2023 Calcium [Mass/Vol] 9.1 mg/dL 8.5-10.1 [facility] Serum or plasma creatinine m easurement (mass/volume)Ordered By: Dr. Regalado on 2023 Creatinine [Mass/Vol] 1.19 mg/dL 0.55-1.02 [facility] Comment on above: The validity of the calculated GFR & GFRAA in patients over 70 years has not been determined. Clinical correlation is essential. Serum or plasma urea nitroge n measurement (mass/volume)Ordered By: Dr. Regalado on 2023 Urea nitrogen [Mass/Vol] 25 mg/dL 7-18 [facility] Squamous epithelial cells de tection in urine sediment by light microscopyOrdered By: Dr. Regalado on 2023 Epithelial cells.squamous LM Ql (Urine sed) 0 SEEN /hpf 5-10 [facility] Thin prep Papanicolaou smear with manual screeningOrdered By: Dr. Regalado on 2023 Thin prep Papanicolaou smear with manual screening 1 5-15 [facility] Urine blood detectionOrdered By: Dr. Regalado on 2023 RBC Ql (U) 10 /ul Negative [facility] RBC Ql (U) 0 SEEN /hpf 0-5 [facility] Urine clarityOrdered By: Dr. Regalado on 2023 Clarity (U) Clear Clear [facility] Urine color determinationOrd ered By: Dr. Regalado on 2023 Color (U) Yellow Yellow [facility] Urine glucose detectionOrder ed By: Dr. Regalado on 2023 Glucose Ql (U) Normal mg/dl Normal [facility] Urine leukocyte esterase det ection by dipstickOrdered By: Dr. Regalado on 2023 Leukocyte esterase Test strip Ql (U) 25 /ul Negative [facility] Urine pHOrdered By: Dr. Malcolm fagan on 2023 pH (U) 6.0 [pH] 5.0 - 8.0 [facility] Urine sediment bacteria coun t by microscopy (number/high power field)Ordered By: Dr. Regalado on 2023 Bacteria LM.HPF (Urine sed) [#/Area] 1 /[HPF] None Seen [facility] Urine specific gravity measu rementOrdered By: Dr. Regalado on 2023 Specific gravity (U) [Rel density] 1.015 1.002-1.030 [facility] Urobilinogen Auto test strip Ql (U)Ordered By: Dr. Regalado on 2023 Urobilinogen Ql (U) Normal mg/dl Normal [facility] Absolute lymphocyte countOrd ered By: Thai Khan on 01-14-2023 Lymphocytes Auto (Unsp spec) [#/Vol] 0.65 10*3/uL 0.83-4.51 [facility] Basophil percentageOrdered B y: Thai Khan on 01-14-2023 Basophil percentage 179 mg/dL 74-106 [facility] Basophil percentage 141 mmol/L 136-145 [facility] Basophil percentage 3.8 mmol/L 3.5-5.1 [facility] Basophil percentage 109 mmol/L 98-107 [facility] Basophil percentage 2.1 mmol/L 0.4-2.0 [facility] Basophils (Bld) [#/Vol] 5.6 10*3/uL 4.4-11.0 [facility] Basophils (Bld) [#/Vol] 3.9 10*3/uL 2.0-7.7 [facility] Basophils/100 WBC (Bld) 0.2 % 0-1 [facility] Basophils/100 WBC (Bld) 69.2 % 47-70 [facility] Basophils/100 WBC (Bld) 7.2 % 0-5 [facility] Chloride [Moles/Vol] 109 mmol/L 98-107 [facility] Eosinophils/100 WBC (Bld) 7.2 % 0-5 [facility] Glucose [Mass/Vol] 179 mg/dL 74-106 [facility] Comment on above: Fasting Glucose resu lt greater than or equal to 126 mg/dL suggests DIABETES MELLITUS per A.D.A. criteria. Lactate [Moles/Vol] 2.1 mmol/L 0.4-2.0 [facility] Comment on above: Critical Result(s) C alled at: 02:06:00 01/14/2023 by: Renny Morales TO MIAH ENNIS RN (ED) Results read back by same. Neutrophils (Bld) [#/Vol] 3.9 10*3/uL 2.0-7.7 [facility] Neutrophils/100 WBC (Bld) 69.2 % 47-70 [facility] Potassium [Moles/Vol] 3.8 mmol/L 3.5-5.1 [facility] Comment on above: Slight Hemolysis, Re sult may be falsely increased. Sodium [Moles/Vol] 141 mmol/L 136-145 [facility] WBC (Bld) [#/Vol] 5.6 10*3/uL 4.4-11.0 [facility] Blood erythrocytes count (nu mber/volume)Ordered By: Thai Khan on 01-14-2023 RBC (Bld) [#/Vol] 4.40 10*6/uL 4.2-5.4 [facility] Blood hemoglobin measurement (mass/volume)Ordered By: Thai Khan on 01-14-2023 Hemoglobin (Bld) [Mass/Vol] 13.7 g/dL 12.0-15.0 [facility] Blood lymphocytes/100 leukoc ytesOrdered By: Thai Khan on 01-14-2023 Lymphocytes/100 WBC (Bld) 11.7 % 19-41 [facility] Blood monocytes/100 leukocyt esOrdered By: Thai Khan on 01-14-2023 Monocytes/100 WBC (Bld) 10.8 % 0-10 [facility] Blood platelet mean volumeOr dered By: Thai Khan on 01-14-2023 Platelet mean volume (Bld) [Entitic vol] 10.4 fL 6.2-12.0 [facility] Determination of erythrocyte mean corpuscular volume (MCV)Ordered By: Thai Khan on 01-14-2023 MCV (RBC) [Entitic vol] 99.5 fL 81-99 [facility] Hematocrit Auto (Bld) [Volum e fraction]Ordered By: Thai Khan on 01-14-2023 Hematocrit (Bld) [Volume fraction] 43.8 % 37-47 [facility] Influenza virus A and B and SARS-CoV-2 (COVID-19) Ag panel - Upper respiratory specimOrdered By: Thai Khan on 01-14-2023 SARS-CoV-2 (COVID-19) RNA SANDRA+probe Ql (Resp) [facility] Laboratory - Chemistry and C hemistry - challengeOrdered By: Thai Khan on 01-14-2023 CO2 [Moles/Vol] 25.0 mmol/L 21.0-32.0 [facility] Magnesium [Mass/Vol] 2.0 mg/dL 1.6-2.6 [facility] Comment on above: Slight Hemolysis, Re sult may be falsely increased. Urea nitrogen/Creatinine [Mass ratio] 21.9 mg/mg 10-20 [facility] Laboratory - Hematology and Cell countsOrdered By: Thai Khan on 01-14-2023 Erythrocyte distribution width (RBC) [Entitic vol] 56.6 fL 35.1-43.9 [facility] Erythrocyte distribution width (RBC) [Ratio] 15.3 % 11.6-14.6 [facility] Immature granulocytes/100 WBC (Bld) 0.900 % 0.0-0.9 [facility] Comment on above: IG% - Immature Granu locytes (promyelocytes, myelocytes and metamyelocytes) > 1% indicates that a LEFT SHIFT is Present. MCH (RBC) [Entitic mass] 31.1 pg 27.0-32.0 [facility] Nucleated RBC/100 WBC (Bld) [Ratio] 0 % 0-5 [facility] MCHC Auto (RBC) [Mass/Vol]Or dered By: Thai Khan on 01-14-2023 MCHC (RBC) [Mass/Vol] 31.3 g/dL 32-36 [facility] No Panel InformationOrdered By: Thai Khan on 01-14-2023 Estimated Creatinine Clearance Calc 27.28 ml/min [facility] Estimated GFR (MDRD) Amer 44 mL/min >60 [facility] Comment on above: GFR Calc Estimated GFR (MDRD) Non-Af Amer 36 mL/min >60 [facility] Comment on above: Non- GFR Calc 31.1 pg 27.0-32.0 [facility] 15.3 % 11.6-14.6 [facility] 56.6 fl 35.1-43.9 [facility] 0.900 % 0.0-0.9 [facility] 0 % 0-5 [facility] 36 mL/min >60 [facility] 44 mL/min >60 [facility] 27.28 ml/min [facility] 21.9 RATIO 10-20 [facility] 2.0 mg/dL 1.6-2.6 [facility] 25.0 mmol/L 21.0-32.0 [facility] Platelets bldOrdered By: Jose Khan on 01-14-2023 Platelets (Bld) [#/Vol] 145 10*3/uL 150-450 [facility] Respiratory pathogens DNA an d RNA 12b panel SANDRA+probe (Unsp spec)Ordered By: Thai Khan on 01-14-2023 Respiratory Panel (PCR) Parainfluenza 3 [facility] Parainfluenza 3 [facility] Serum or plasma calcium mariel urement (mass/volume)Ordered By: Thai Khan on 01-14-2023 Calcium [Mass/Vol] 8.9 mg/dL 8.5-10.1 [facility] Serum or plasma creatinine m easurement (mass/volume)Ordered By: Thai Khan on 01-14-2023 Creatinine [Mass/Vol] 1.51 mg/dL 0.55-1.02 [facility] Comment on above: The validity of the calculated GFR & GFRAA in patients over 70 years has not been determined. Clinical correlation is essential. Serum or plasma urea nitroge n measurement (mass/volume)Ordered By: Thai Khan on 01-14-2023 Urea nitrogen [Mass/Vol] 33 mg/dL 7-18 [facility] Thin prep Papanicolaou smear with manual screeningOrdered By: Thai Khan on 01-14-2023 Thin prep Papanicolaou smear with manual screening 7 5-15 [facility] XR Foot - left AP and Latera l and obliqueon 01-12-2023 IMPRESSION: No acute abnormality Reporting Coordinator: [facility] Transcribe Date/Time: Jan 12 2023 4:40P Dictated by : JEFFERSON STEPHEN MD This examination was interpreted and the report reviewed and electronically signed by: JEFFERSON STEPHEN MD on Jan 12 2023 4:41PM [facility] DIVISION OF RADIOLOGY * * *Final Report* * * DATE OF EXAM: Jan 09 2023 3:08PM WOX [id number] - XR FOOT 3V AP/LAT/OBL LT / PROCEDURE REASON: Cellulitis of left foot * * * * Physician Interpretation * * * * PROCEDURE: Left foot INDICATION: Cellulitis of left foot .walker fell on her toes a week ago, they are all purple and has cellulitis midfoot medial side of arch for a week TECHNIQUE: XR FOOT 3V AP/LAT/OBL LT COMPARISON: 10/06/2019 FINDINGS: No acute fracture or dislocation. 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 No erosions or focal soft tissue swelling. Calcaneal spurs. Soft tissues are unremarkable. DIVISION OF RADIOLOGY Provider, Margie Moyer [facility] - 01/12/2023 * * *Final Report* * * DATE OF EXAM: Jan 09 2023 3:08PM WOX 5336 - XR FOOT 3V AP/LAT/OBL LT / PROCEDURE REASON: Cellulitis of left foot * * * * Physician Interpretation * * * * PROCEDURE: Left foot INDICATION: Cellulitis of left foot .walker fell on her toes a week ago, they are all purple and has cellulitis midfoot medial side of arch for a week TECHNIQUE: XR FOOT 3V AP/LAT/OBL LT COMPARISON: 10/06/2019 FINDINGS: No acute fracture or dislocation. 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 No erosions or focal soft tissue swelling. Calcaneal spurs. Soft tissues are unremarkable. IMPRESSION IMPRESSION: No acute abnormality Reporting Coordinator: [facility] Transcribe Date/Time: Jan 12 2023 4:40P Dictated by : JEFFERSON STEPHEN MD This examination was interpreted and the report reviewed and electronically signed by: JEFFERSON STEPHEN MD on Jan 12 2023 4:41PM [facility] XR Foot - left AP and Latera l and obliqueOrdered By: [facility] Provider on 01-12-2023 [facility] XR Foot - left AP and Latera l and obliqueon 01-09-2023 Radiology Study observation (narrative) [facility] Absolute lymphocyte countOrd ered By: Dr. Castro on 01-03-2023 Lymphocytes Auto (Unsp spec) [#/Vol] 1.03 10*3/uL 0.83-4.51 [facility] Basophil percentageOrdered B y: Dr. Castro on 01-03-2023 Basophil percentage 183 mg/dL 74-106 [facility] Basophil percentage 140 mmol/L 136-145 [facility] Basophil percentage 3.7 mmol/L 3.5-5.1 [facility] Basophil percentage 109 mmol/L 98-107 [facility] Basophil percentage 1.0 mmol/L 0.4-2.0 [facility] Basophils (Bld) [#/Vol] 9.6 10*3/uL 4.4-11.0 [facility] Basophils (Bld) [#/Vol] 7.5 10*3/uL 2.0-7.7 [facility] Basophils/100 WBC (Bld) 0.3 % 0-1 [facility] Basophils/100 WBC (Bld) 78.4 % 47-70 [facility] Basophils/100 WBC (Bld) 2.1 % 0-5 [facility] Chloride [Moles/Vol] 109 mmol/L 98-107 [facility] Eosinophils/100 WBC (Bld) 2.1 % 0-5 [facility] Glucose [Mass/Vol] 183 mg/dL 74-106 [facility] Comment on above: Fasting Glucose resu lt greater than or equal to 126 mg/dL suggests DIABETES MELLITUS per A.D.A. criteria. Lactate [Moles/Vol] 1.0 mmol/L 0.4-2.0 [facility] Neutrophils (Bld) [#/Vol] 7.5 10*3/uL 2.0-7.7 [facility] Neutrophils/100 WBC (Bld) 78.4 % 47-70 [facility] Potassium [Moles/Vol] 3.7 mmol/L 3.5-5.1 [facility] Sodium [Moles/Vol] 140 mmol/L 136-145 [facility] WBC (Bld) [#/Vol] 9.6 10*3/uL 4.4-11.0 [place] [facility] Blood erythrocytes count (nu mber/volume)Ordered By: Dr. Castro on 01-03-2023 RBC (Bld) [#/Vol] 4.13 10*6/uL 4.2-5.4 [facility] Blood hemoglobin measurement (mass/volume)Ordered By: Dr. Castro on 01-03-2023 Hemoglobin (Bld) [Mass/Vol] 12.9 g/dL 12.0-15.0 [facility] Blood lymphocytes/100 leukoc ytesOrdered By: Dr. Castro on 01-03-2023 Lymphocytes/100 WBC (Bld) 10.7 % 19-41 [facility] Blood monocytes/100 leukocyt esOrdered By: Dr. Castro on 01-03-2023 Monocytes/100 WBC (Bld) 8.0 % 0-10 [facility] Blood platelet mean volumeOr dered By: Dr. Castro on 01-03-2023 Platelet mean volume (Bld) [Entitic vol] 9.9 fL 6.2-12.0 [facility] Determination of erythrocyte mean corpuscular volume (MCV)Ordered By: Dr. Castro on 01-03-2023 MCV (RBC) [Entitic vol] 95.2 fL 81-99 [facility] Erythrocyte sedimentation ra teOrdered By: Dr. Castro on 01-03-2023 ESR (Bld) [Velocity] 19 mm/h 0-30 [facility] Hematocrit Auto (Bld) [Volum e fraction]Ordered By: Dr. Castro on 01-03-2023 Hematocrit (Bld) [Volume fraction] 39.3 % 37-47 [facility] Laboratory - Chemistry and C hemistry - challengeOrdered By: Dr. Castro on 01-03-2023 CO2 [Moles/Vol] 28.0 mmol/L 21.0-32.0 [facility] Urea nitrogen/Creatinine [Mass ratio] 29.0 mg/mg 10-20 [facility] - Hematology and Cell countsOrdered By: Dr. Castro on 01-03-2023 Erythrocyte distribution width (RBC) [Entitic vol] 53.7 fL 35.1-43.9 [facility] Erythrocyte distribution width (RBC) [Ratio] 15.5 % 11.6-14.6 [facility] Immature granulocytes/100 WBC (Bld) 0.500 % 0.0-0.9 [facility] Comment on above: IG% - Immature Granu locytes (promyelocytes, myelocytes and metamyelocytes) > 1% indicates that a LEFT SHIFT is Present. MCH (RBC) [Entitic mass] 31.2 pg 27.0-32.0 [facility] Nucleated RBC/100 WBC (Bld) [Ratio] 0 % 0-5 [facility] MCHC Auto (RBC) [Mass/Vol]Or dered By: Dr. Castro on 01-03-2023 MCHC (RBC) [Mass/Vol] 32.8 g/dL 32-36 [facility] No Panel InformationOrdered By: Dr. Castro on 01-03-2023 Estimated Creatinine Clearance Calc 28.41 ml/min [facility] Estimated GFR (MDRD) Amer 46 mL/min >60 [facility] Comment on above: GFR Calc Estimated GFR (MDRD) Non-Af Amer 38 mL/min >60 [facility] Comment on above: Non- GFR Calc 31.2 pg 27.0-32.0 [facility] 15.5 % 11.6-14.6 [facility] 53.7 fl 35.1-43.9 [facility] 0.500 % 0.0-0.9 [facility] 0 % 0-5 [facility] 38 mL/min >60 [facility] 46 mL/min >60 [facility] 28.41 ml/min [facility] 29.0 RATIO 10-20 [facility] 28.0 mmol/L 21.0-32.0 [facility] Platelets bldOrdered By: Dr. Castro on 01-03-2023 Platelets (Bld) [#/Vol] 195 10*3/uL 150-450 [facility] Serum or plasma C reactive p rotein measurement (mass/volume)Ordered By: Dr. Castro on 01-03-2023 CRP [Mass/Vol] mg/L 0.0-3.0 [facility] Comment on above: C-Reactive Protein ( CRP) provides useful information for thediagnosis, therapy and monitoring of inflammatory processesand associated diseases. For the evaluation of Relative Riskfor Cardiovascular Disease, a High Sensitivity CRP (HSCRP)should be ordered. Serum or plasma calcium mariel urement (mass/volume)Ordered By: Dr. Castro on 01-03-2023 Calcium [Mass/Vol] 8.6 mg/dL 8.5-10.1 [facility] Serum or plasma creatinine m easurement (mass/volume)Ordered By: Dr. Castro on 01-03-2023 Creatinine [Mass/Vol] 1.45 mg/dL 0.55-1.02 [facility] Comment on above: The validity of the calculated GFR & GFRAA in patients over 70 years has not been determined. Clinical correlation is essential. Serum or plasma urea nitroge n measurement (mass/volume)Ordered By: Dr. Castro on 01-03-2023 Urea nitrogen [Mass/Vol] 42 mg/dL 7-18 [facility] Thin prep Papanicolaou smear with manual screeningOrdered By: Dr. Castro on 01-03-2023 Thin prep Papanicolaou smear with manual screening 3 5-15 [facility] Basophil percentageOrdered B y: Pancho Branhamdinorazelalem on 12-20-2022 Basophil percentage 447 mg/dL 74-106 [facility] Basophil percentage 137 mmol/L 136-145 [facility] Basophil percentage 4.7 mmol/L 3.5-5.1 [facility] Basophil percentage 104 mmol/L 98-107 [facility] Basophils (Bld) [#/Vol] 9.4 10*3/uL 4.4-11.0 [facility] Chloride [Moles/Vol] 104 mmol/L 98-107 [facility] Glucose [Mass/Vol] 447 mg/dL 74-106 [facility] Comment on above: Glucose result great er than or equal to 200 mg/dLsuggests DIABETES MELLITUS per A.D.A. criteria. Potassium [Moles/Vol] 4.7 mmol/L 3.5-5.1 [facility] Sodium [Moles/Vol] 137 mmol/L 136-145 [facility] WBC (Bld) [#/Vol] 9.4 10*3/uL 4.4-11.0 [facility] Blood erythrocytes count (nu mber/volume)Ordered By: Pancho Shultz on 12-20-2022 RBC (Bld) [#/Vol] 3.78 10*6/uL 4.2-5.4 [facility] Blood hemoglobin measurement (mass/volume)Ordered By: Pancho Shultz on 12-20-2022 Hemoglobin (Bld) [Mass/Vol] 11.4 g/dL 12.0-15.0 [facility] Blood platelet mean volumeOr dered By: Pancho Shultz on 12-20-2022 Platelet mean volume (Bld) [Entitic vol] 10.4 fL 6.2-12.0 [facility] Determination of erythrocyte mean corpuscular volume (MCV)Ordered By: Pancho Shultz on 12-20-2022 MCV (RBC) [Entitic vol] 95.8 fL 81-99 [facility] Glucose Glucometer (dC) [M ass/Vol]Ordered By: Dr. Leslie on 12-20-2022 Glucose [Mass/Vol] 302 mg/dL 74-106 [facility] Comment on above: MANAGEMENT OF PATIEN T CARE PER NURSING PROTOCOL Hematocrit Auto (Bld) [Volum e fraction]Ordered By: Pancho Shultz on 12-20-2022 Hematocrit (Bld) [Volume fraction] 36.2 % 37-47 [facility] - Chemistry and C hemistry - challengeOrdered By: Pancho Shultz on 12-20-2022 CO2 [Moles/Vol] 30.0 mmol/L 21.0-32.0 [facility] Urea nitrogen/Creatinine [Mass ratio] 21.4 mg/mg 10-20 [facility] - Hematology and Cell countsOrdered By: Pancho Shultz on 12-20-2022 Erythrocyte distribution width (RBC) [Entitic vol] 52.8 fL 35.1-43.9 [facility] Erythrocyte distribution width (RBC) [Ratio] 15.3 % 11.6-14.6 [facility] MCH (RBC) [Entitic mass] 30.2 pg 27.0-32.0 [facility] MCHC Auto (RBC) [Mass/Vol]Or dered By: Pancho Shultz on 12-20-2022 MCHC (RBC) [Mass/Vol] 31.5 g/dL 32-36 [facility] No Panel InformationOrdered By: Pancho Shultz on 12-20-2022 Estimated Creatinine Clearance Calc 25.91 ml/min [facility] Estimated GFR (MDRD) Amer 42 mL/min >60 [facility] Comment on above: GFR Calc Estimated GFR (MDRD) Non-Af Amer 34 mL/min >60 [facility] Comment on above: Non- GFR Calc 30.2 pg 27.0-32.0 [facility] 15.3 % 11.6-14.6 [facility] 52.8 fl 35.1-43.9 [facility] 34 mL/min >60 [facility] 42 mL/min >60 [facility] 25.91 ml/min [facility] 21.4 RATIO 10-20 [facility] 30.0 mmol/L 21.0-32.0 [facility] Platelets bldOrdered By: Pancho Shultz on 12-20-2022 Platelets (Bld) [#/Vol] 177 10*3/uL 150-450 [facility] Serum or plasma calcium mariel urement (mass/volume)Ordered By: Pancho Shultz on 12-20-2022 Calcium [Mass/Vol] 9.0 mg/dL 8.5-10.1 [facility] Serum or plasma creatinine m easurement (mass/volume)Ordered By: Pancho Shultz on 12-20-2022 Creatinine [Mass/Vol] 1.59 mg/dL 0.55-1.02 [facility] Comment on above: The validity of the calculated GFR & GFRAA in patients over 70 years has not been determined. Clinical correlation is essential. Serum or plasma urea nitroge n measurement (mass/volume)Ordered By: Pancho Shultz on 12-20-2022 Urea nitrogen [Mass/Vol] 34 mg/dL 7-18 [facility] Thin prep Papanicolaou smear with manual screeningOrdered By: Pancho Shultz on 12-20-2022 Thin prep Papanicolaou smear with manual screening 3 5-15 [facility] Absolute lymphocyte countOrd ered By: Pancho Shultz on 12-19-2022 Lymphocytes Auto (Unsp spec) [#/Vol] 0.51 10*3/uL 0.83-4.51 [facility] Basophil percentageOrdered B y: Pancho Shultz on 12-19-2022 Basophils (Bld) [#/Vol] 7.9 10*3/uL 2.0-7.7 [facility] Basophils/100 WBC (Bld) 0.2 % 0-1 [facility] Basophils/100 WBC (Bld) 89.8 % 47-70 [facility] Basophils/100 WBC (Bld) 0.0 % 0-5 [facility] Eosinophils/100 WBC (Bld) 0.0 % 0-5 [facility] Neutrophils (Bld) [#/Vol] 7.9 10*3/uL 2.0-7.7 [facility] Neutrophils/100 WBC (Bld) 89.8 % 47-70 [facility] Blood lymphocytes/100 leukoc ytesOrdered By: Pancho Shultz on 12-19-2022 Lymphocytes/100 WBC (Bld) 5.8 % 19-41 [facility] Blood manual differential co mment interpretation (narrative result)Ordered By: Pancho Shultz on 12-19-2022 Manual differential comment Prashanth (Bld) [Interp] SCANNED [facility] Blood monocytes/100 leukocyt esOrdered By: Pancho Shultz on 12-19-2022 Monocytes/100 WBC (Bld) 3.7 % 0-10 [facility] Laboratory - Hematology and Cell countsOrdered By: Pancho Shultz on 12-19-2022 Immature granulocytes/100 WBC (Bld) 0.500 % 0.0-0.9 [facility] Comment on above: IG% - Immature Granu locytes (promyelocytes, myelocytes and metamyelocytes) > 1% indicates that a LEFT SHIFT is Present. Nucleated RBC/100 WBC (Bld) [Ratio] 0 % 0-5 [facility] No Panel InformationOrdered By: Pancho Shultz on 12-19-2022 0.500 % 0.0-0.9 [facility] 0 % 0-5 [facility] No Panel InformationOrdered By: Dr. Leslie on 12-16-2022 Nasal Screen MRSA/MSSA [facility] Laboratory - Chemistry and C hemistry - challengeOrdered By: Dr. Rosario on 12-12-2022 Magnesium [Mass/Vol] 2.4 mg/dL 1.6-2.6 [facility] No Panel InformationOrdered By: Dr. Rosario on 12-12-2022 Thyroid Stimulating Hormone (TSH) 3.34 uIU/mL 0.358-3.74 [facility] 2.4 mg/dL 1.6-2.6 [facility] 3.34 uIU/mL 0.358-3.74 [facility] No Panel InformationOrdered By: Arlyn Leslie on 12-11-2022 Nasal Screen MRSA/MSSA [facility] Serum or plasma albumin mariel urement (mass/volume)Ordered By: Dr. Leslie on 12-11-2022 Albumin [Mass/Vol] 3.3 g/dL 3.2-5.0 [facility] Whole blood hemoglobin A1c/t otal hemoglobin ratio (mass fraction)Ordered By: Dr. Leslie on 12-11-2022 HbA1c (Bld) [Mass fraction] 8.5 % 3.8-5.6 [facility] Comment on above: Normal < 5.7 % Predi abetic 5.7 - 6.4 % Diabetic >or= 6.5 % Please note range changes. .Auto Diffon 11-07-2022 Basophil, Absolute 0.0 10 3/mcL Normal 0.0-0.2 [facility] ([place]) Comment on above: Performed By: #### A 1C, BMP, ALB, ANSG, ADIFF, ABOG, CBC, ANEU, GFR #### [address] [address] Basophils/100 WBC (Bld) 0.3 % Normal 0.0-2.5 A [facility] ([place]) Comment on above: Performed By: #### A 1C, BMP, ALB, ANSG, ADIFF, ABOG, CBC, ANEU, GFR #### [address] [address] Eosinophil, Absolute 0.2 10 3/mcL Normal 0.0-0.4 [facility] ([place]) Comment on above: Performed By: #### A 1C, BMP, ALB, ANSG, ADIFF, ABOG, CBC, ANEU, GFR #### [address] [address] Eosinophils/100 WBC (Bld) 3.2 % Normal 0.0-7.0 [facility] ([place]) Comment on above: Performed By: #### A 1C, BMP, ALB, ANSG, ADIFF, ABOG, CBC, ANEU, GFR #### [address] [address] Lymphocyte, Absolute 0.9 10 3/mcL Normal 0.8-3.9 [facility] ([place]) Comment on above: Performed By: #### A 1C, BMP, ALB, ANSG, ADIFF, ABOG, CBC, ANEU, GFR #### [address] [address] Lymphocytes/100 WBC (Bld) 12.2 % Normal 10.0-50.0 [facility] ([place]) Comment on above: Performed By: #### A 1C, BMP, ALB, ANSG, ADIFF, ABOG, CBC, ANEU, GFR #### [address] [address] Monocyte, Absolute 0.6 10 3/mcL Normal 0.2-1.0 [facility] ([place]) Comment on above: Performed By: #### A 1C, BMP, ALB, ANSG, ADIFF, ABOG, CBC, ANEU, GFR #### [address] [address] Monocytes/100 WBC (Bld) 7.4 % Normal 1.7-13.0 [facility] ([place]) Comment on above: Performed By: #### A 1C, BMP, ALB, ANSG, ADIFF, ABOG, CBC, ANEU, GFR #### [address] [address] Neutrophils/100 WBC (Bld) 76.9 % Normal 37.0-80.0 [facility] ([place]) Comment on above: Performed By: #### A 1C, BMP, ALB, ANSG, ADIFF, ABOG, CBC, ANEU, GFR #### [address] [address] .GFRon 11-07-2022 GFR 55 ml/min/1.73sqm Normal [facility] ([place]) Comment on above: Result Comment: GFR Population mean for , Non- Americans Ages 20-29 = 116 mL/min/1.73 sq.m. Ages 30-39 = 107 mL/min/1.73 sq.m. Ages 40-49 = 99 mL/min/1.73 sq.m. Ages 50-59 = 93 mL/min/1.73 sq.m. Ages 60-69 = 85 mL/min/1.73 sq.m. Ages 70+ = 75 mL/min/1.73 sq.m. Chronic Kidney Disease: Less than 60 mL/min/1.73 square meters End Stage Renal Disease: Less than 15 mL/min/1.73 square meters Performed By: #### A 1C, BMP, ALB, ANSG, ADIFF, ABOG, CBC, ANEU, GFR #### [address] [address] GFR Non- 46 ml/min/1.73sqm Normal [facility] ([place]) Comment on above: Result Comment: GFR Population mean for , Non- Americans Ages 20-29 = 116 mL/min/1.73 sq.m. Ages 30-39 = 107 mL/min/1.73 sq.m. Ages 40-49 = 99 mL/min/1.73 sq.m. Ages 50-59 = 93 mL/min/1.73 sq.m. Ages 60-69 = 85 mL/min/1.73 sq.m. Ages 70+ = 75 mL/min/1.73 sq.m. Chronic Kidney Disease: Less than 60 mL/min/1.73 square meters End Stage Renal Disease: Less than 15 mL/min/1.73 square meters Performed By: #### A 1C, BMP, ALB, ANSG, ADIFF, ABOG, CBC, ANEU, GFR #### [address] [address] .NEUABSon 11-07-2022 Neutrophil, Absolute 5.7 10 3/mcL Normal 2.9-6.2 [facility] ([place]) Comment on above: Performed By: #### A 1C, BMP, ALB, ANSG, ADIFF, ABOG, CBC, ANEU, GFR #### [place] [address] A1Con 11-07-2022 HbA1c (Bld) [Mass fraction] 7.5 % High 4.3-6.4 [facility] ([place]) Comment on above: Performed By: #### A 1C, BMP, ALB, ANSG, ADIFF, ABOG, CBC, ANEU, GFR #### [place] [address] ALBon 11-07-2022 Albumin Level 3.1 G/dL Low 3.4-4.8 [facility]) Comment on above: Performed By: #### A 1C, BMP, ALB, ANSG, ADIFF, ABOG, CBC, ANEU, GFR #### [place] [address] BMPon 11-07-2022 BUN/Creatinine Ratio 23 ratio Normal 7-27 [facility]) Comment on above: Performed By: #### A 1C, BMP, ALB, ANSG, ADIFF, ABOG, CBC, ANEU, GFR #### [place] [id number] Calcium [Mass/Vol] 8.9 mg/dL Normal 8.4-10.2 Pending sale to [facility] ([place]) Comment on above: Performed By: #### A 1C, BMP, ALB, ANSG, ADIFF, ABOG, CBC, ANEU, GFR #### [place] [id number] Chloride [Moles/Vol] 106 mmol/L Normal 98-107 [facility]) Comment on above: Performed By: #### A 1C, BMP, ALB, ANSG, ADIFF, ABOG, CBC, ANEU, GFR #### [place] [id number] CO2 [Moles/Vol] 34 mmol/L High 23-31 [facility] ([place]) Comment on above: Performed By: #### A 1C, BMP, ALB, ANSG, ADIFF, ABOG, CBC, ANEU, GFR #### [address] [address] Creatinine [Mass/Vol] 1.18 mg/dL High 0.55-1.02 [facility] ([place]) Comment on above: Performed By: #### A 1C, BMP, ALB, ANSG, ADIFF, ABOG, CBC, ANEU, GFR #### [address] [address] Electrolyte Balance 5.0 mEq/L Normal 4.0-15.0 On license of [facility] ([place]) Comment on above: Performed By: #### A 1C, BMP, ALB, ANSG, ADIFF, ABOG, CBC, ANEU, GFR #### [address] [address] Glucose [Mass/Vol] 116 mg/dL High 80-115 Pending sale to [facility] ([place]) Comment on above: Performed By: #### A 1C, BMP, ALB, ANSG, ADIFF, ABOG, CBC, ANEU, GFR #### [address] [address] Potassium [Moles/Vol] 3.7 mmol/L Normal 3.5-5.1 [facility] ([place]) Comment on above: Performed By: #### A 1C, BMP, ALB, ANSG, ADIFF, ABOG, CBC, ANEU, GFR #### [address] [address] Sodium [Moles/Vol] 145 mmol/L Normal 136-145 Pending sale to [facility] ([place]) Comment on above: Performed By: #### A 1C, BMP, ALB, ANSG, ADIFF, ABOG, CBC, ANEU, GFR #### [address] [address] Urea nitrogen [Mass/Vol] 27 mg/dL High 7-18 [facility] ([place]) Comment on above: Performed By: #### A 1C, BMP, ALB, ANSG, ADIFF, ABOG, CBC, ANEU, GFR #### [place] [address] CBCon 11-07-2022 Erythrocyte distribution width (RBC) [Ratio] 16.0 % High 11.5-14.5 [facility] ([place]) Comment on above: Order Comment: Pre-A dmission Testing Performed By: #### A 1C, BMP, ALB, ANSG, ADIFF, ABOG, CBC, ANEU, GFR #### [place] [address] Hematocrit (Bld) [Volume fraction] 38.9 % Normal 37.0-47.0 [facility] ([place]) Comment on above: Order Comment: Pre-A dmission Testing Performed By: #### A 1C, BMP, ALB, ANSG, ADIFF, ABOG, CBC, ANEU, GFR #### [place] [address] Hgb 12.7 G/dL Normal 12.0-16.0 [facility] ([place]) Comment on above: Order Comment: Pre-A dmission Testing Performed By: #### A 1C, BMP, ALB, ANSG, ADIFF, ABOG, CBC, ANEU, GFR #### [place] [address] MCH (RBC) [Entitic mass] 29.1 pg Normal 27.0-31.2 [facility] ([place]) Comment on above: Order Comment: Pre-A dmission Testing Performed By: #### A 1C, BMP, ALB, ANSG, ADIFF, ABOG, CBC, ANEU, GFR #### [place] [address] MCHC 32.7 G/dL Low 33.0-37.0 [facility] ([place]) Comment on above: Order Comment: Pre-A dmission Testing Performed By: #### A 1C, BMP, ALB, ANSG, ADIFF, ABOG, CBC, ANEU, GFR #### [address] [address] MCV (RBC) [Entitic vol] 89.1 fL Normal 80.0-94.0 A [facility] ([place]) Comment on above: Order Comment: Pre-A dmission Testing Performed By: #### A 1C, BMP, ALB, ANSG, ADIFF, ABOG, CBC, ANEU, GFR #### [address] [address] Platelet 247 10 3/mcL Normal 130-400 [facility] ([place]) Comment on above: Order Comment: Pre-A dmission Testing Performed By: #### A 1C, BMP, ALB, ANSG, ADIFF, ABOG, CBC, ANEU, GFR #### [address] [address] Platelet mean volume (Bld) [Entitic vol] 8.2 fL Normal 7.4-10.4 [facility] ([place]) Comment on above: Order Comment: Pre-A dmission Testing Performed By: #### A 1C, BMP, ALB, ANSG, ADIFF, ABOG, CBC, ANEU, GFR #### [address] [address] RBC 4.36 10 6/mcL Normal 4.20-5.40 [facility] ([place]) Comment on above: Order Comment: Pre-A dmission Testing Performed By: #### A 1C, BMP, ALB, ANSG, ADIFF, ABOG, CBC, ANEU, GFR #### [address] [address] WBC 7.4 10 3/mcL Normal 4.6-10.8 [facility] ([place]) Comment on above: Order Comment: Pre-A dmission Testing Performed By: #### A 1C, BMP, ALB, ANSG, ADIFF, ABOG, CBC, ANEU, GFR #### [address] [address] [address] HIP W/O CONTRAST LEFTon 0 11-07-2022 CT HIP W/O CONTRAST LEFT ORIGINAL EXAMINATION: CT OF THE LEFT HIP WITHOUT CONTRAST 11/07/2022 1:19 pm TECHNIQUE: CT of the left hip was performed without the administration of intravenous contrast. Multiplanar reformatted images are provided for review. Automated exposure control, iterative reconstruction, and/or weight based adjustment of the mA/kV was utilized to reduce the radiation dose to as low as reasonably achievable. COMPARISON: None. HISTORY ORDERING SYSTEM PROVIDED HISTORY: Reason for Exam: MECHANICAL COMPLICATIONS OF INTERNAL LEFT HIP PROSTHESIS. History of hip surgery. FINDINGS: There are surgical changes relating to placement of cephalo medullary kaylan and dynamic screws the left femur. There is no visible evidence of hardware complication. The caudal extent of the intramedullary kaylan is not included within the field of view. Remote fracture of the lesser trochanter of femur is noted. There is minimal heterotopic ossification about the cranial aspect of the intramedullary kaylan. Distal interlocking screw and distal most aspect of the intramedullary kaylan appear intact. No acute fracture or dislocation. Osseous mineralization is within normal limits. No visible aggressive osseous lesions. Healed fibrous cortical defect of posterior left iliac bone. Pelvic ring is intact. Sacrum is intact. Mild bilateral hip joint space narrowing. No CT findings to indicate avascular necrosis. No significant hip joint effusion. Very mild bilateral sacroiliac joint degenerative changes are noted with minimal osteophytosis left greater than right as well as minimal bilateral vacuum joint phenomena. Unremarkable pubic symphysis. Mild lower lumbar facet arthrosis. L4-5 and L5-S1 disc bulges are noted without significant canal stenosis. Scattered mild muscle atrophy. Tendons and ligaments are poorly evaluated on this examination. Atherosclerosis noted of the iliac vessels without aneurysmal dilation. Scattered surgical clips are noted of the retroperitoneum. There is mild volume stool of the rectal vault. Colonic diverticulosis is visualized without evidence of acute diverticulitis. The included small bowel exhibits no acute abnormalities. No visible pathologically enlarged lymph nodes, free air, or free fluid. There is a paramedian lower abdominal wall hernia containing fat and omentum. Fascial defect measures up to 3.3 cm transverse dimension. Adjacent surgical clips/changes are noted, indicating prior herniorrhaphy in this region. [id number] bilateral medial and lateral femorotibial compartment joint space narrowing with osteophyte formation is greatest on the left. Mild bilateral patellofemoral compartment degenerative changes also. No significant knee joint effusion on either side. No visible popliteal cyst. IMPRESSION: 1. No acute osseous abnormalities or aggressive osseous lesions. 2. Surgical changes of the left femur without evidence of hardware complication. 3. Polyarticular degenerative change, as above. Interpreted by: Daryl Pacheco DO Preliminary Report By: Daryl Pacheco DO Electronically signed By Daryl Pacheco DO Dictated Date: 11/07/2022 1:26:01 PM Prelim Date: 11/07/2022 1:36:33 PM Sign Date: 11/07/2022 1:36:33 PM Ordering Provider: ARLYN LESLIE Normal [facility]) Gel ABOon 11-07-2022 ABO/Rh Interp Positive Invalid Interpretation Code [facility]) Comment on above: Performed By: #### A 1C, BMP, ALB, ANSG, ADIFF, ABOG, CBC, ANEU, GFR #### [address] [address] Gel ABSon 11-07-2022 Antibody Screen Gel Negative Normal [facility]) Comment on above: Performed By: #### A 1C, BMP, ALB, ANSG, ADIFF, ABOG, CBC, ANEU, GFR #### [address] [address] LABORATORYOrdered By: Caprice Perea on 11-07-2022 ABO/Rh Interp Positive Invalid Interpretation Code AO BB SS Antibody Screen Gel Negative ABSC (11/07/22 12:39 PM) Invalid Interpretation Code AO BB SS LABORATORYOrdered By: SYSTEM SYSTEM on 11-07-2022 Albumin BCP dye [Mass/Vol] 3.1 G/dL Invalid Interpretation Code 3.4 - 4.8 G/dL AO ADM SS Calcium [Mass/Vol] 8.9 mg/dL Invalid Interpretation Code 8.4 - 10.2 mg/dL AO ADM SS Chloride [Moles/Vol] 106 mmol/L Invalid Interpretation Code 98 - 107 mmol/L AO ADM SS CO2 [Moles/Vol] 34 mmol/L Invalid Interpretation Code 23 - 31 mmol/L AO ADM SS Creatinine [Mass/Vol] 1.18 mg/dL Invalid Interpretation Code 0.55 - 1.02 mg/dL AO ADM SS Electrolyte Balance 5.0 mEq/L Invalid Interpretation Code 4.0 - 15.0 mEq/L AO ADM SS GFR 55 ml/min/1.73sqm Invalid Interpretation Code AO Chemistry S GFR Non- 46 ml/min/1.73sqm Invalid Interpretation Code AO Chemistry S Glucose [Mass/Vol] 116 mg/dL Invalid Interpretation Code 80 - 115 mg/dL AO ADM SS HbA1c (Bld) [Mass fraction] 7.5 % Invalid Interpretation Code 4.3 - 6.4 % AO ADM SS Potassium [Moles/Vol] 3.7 mmol/L Invalid Interpretation Code 3.5 - 5.1 mmol/L AO ADM SS Sodium [Moles/Vol] 145 mmol/L Invalid Interpretation Code 136 - 145 mmol/L AO ADM SS Urea nitrogen [Mass/Vol] 27 mg/dL Invalid Interpretation Code 7 - 18 mg/dL AO ADM SS Urea nitrogen/Creatinine [Mass ratio] 23 ratio Invalid Interpretation Code 7 - 27 ratio AO ADM SS LABORATORYOrdered By: Apoorva Cade on 11-07-2022 Basophil, Absolute 0.0 103/mcL Invalid Interpretation Code 0.0 - 0.2 10^3/mcL AO Workflow SS Basophils/100 WBC (Bld) 0.3 % Invalid Interpretation Code 0.0 - 2.5 % AO Workflow SS Eosinophil, Absolute 0.2 103/mcL Invalid Interpretation Code 0.0 - 0.4 10^3/mcL AO Workflow SS Eosinophils/100 WBC (Bld) 3.2 % Invalid Interpretation Code 0.0 - 7.0 % AO Workflow SS Erythrocyte distribution width (RBC) [Ratio] 16.0 % Invalid Interpretation Code 11.5 - 14.5 % AO Workflow SS Hematocrit (Bld) [Volume fraction] 38.9 % Invalid Interpretation Code 37.0 - 47.0 % AO Workflow SS Hemoglobin (Bld) [Mass/Vol] 12.7 G/dL Invalid Interpretation Code 12.0 - 16.0 G/dL AO Workflow SS Lymphocyte, Absolute 0.9 103/mcL Invalid Interpretation Code 0.8 - 3.9 10^3/mcL AO Workflow SS Lymphocytes/100 WBC (Bld) 12.2 % Invalid Interpretation Code 10.0 - 50.0 % AO Workflow SS MCH (RBC) [Entitic mass] 29.1 pg Invalid Interpretation Code 27.0 - 31.2 pg AO Workflow SS MCHC 32.7 G/dL Invalid Interpretation Code 33.0 - 37.0 G/dL AO Workflow SS MCV (RBC) [Entitic vol] 89.1 fL Invalid Interpretation Code 80.0 - 94.0 fL AO Workflow SS Monocyte, Absolute 0.6 103/mcL Invalid Interpretation Code 0.2 - 1.0 10^3/mcL AO Workflow SS Monocytes/100 WBC (Bld) 7.4 % Invalid Interpretation Code 1.7 - 13.0 % AO Workflow SS Neutrophil, Absolute 5.7 103/mcL Invalid Interpretation Code 2.9 - 6.2 10^3/mcL AO Workflow SS Neutrophils/100 WBC (Bld) 76.9 % Invalid Interpretation Code 37.0 - 80.0 % AO Workflow SS Platelet mean volume (Bld) [Entitic vol] 8.2 fL Invalid Interpretation Code 7.4 - 10.4 fL AO Workflow SS Platelets (Bld) [#/Vol] 247 103/mcL Invalid Interpretation Code 130 - 400 10^3/mcL AO Workflow SS RBC (Bld) [#/Vol] 4.36 106/mcL Invalid Interpretation Code 4.20 - 5.40 10^6/mcL AO Workflow SS WBC (Bld) [#/Vol] 7.4 103/mcL Invalid Interpretation Code 4.6 - 10.8 10^3/mcL AO Workflow SS XR Chest PA and Lateralon IMPRESSION: No acute radiographic abnormality. Cardiomegaly Reporting Coordinator: [facility] Transcribe Date/Time: Sep 30 2022 10:04A Dictated by : LUIS BALBUENA MD This examination was interpreted and the report reviewed and electronically signed by: LUIS BALBUENA MD on Sep 30 2022 10:06AM [facility] DIVISION OF RADIOLOGY * * *Final Report* * * DATE OF EXAM: Sep 27 2022 12:59PM WOX 5291 - XR CHEST 2V FRONTAL/LAT / PROCEDURE REASON: Pre-operative clearance * * * * Physician Interpretation * * * * EXAMINATION: CHEST RADIOGRAPH (2 VIEW FRONTAL & LATERAL) CLINICAL HISTORY: Pre-operative clearance MQ: XC2_6 EXAM DATE/TIME: 09/27/2022 12:59 PM COMPARISON: 04/04/2022 RESULT: Lines, tubes, and devices: None. Lungs and pleura: No consolidation. No lung mass. No pleural effusion. No pneumothorax. Cardiomediastinal silhouette: Stable enlarged cardiomediastinal silhouette. Bones and soft tissues: Degenerative change and osteopenia DIVISION OF RADIOLOGY Provider, [facility] - 09/30/2022 * * *Final Report* * * DATE OF EXAM: Sep 27 2022 12:59PM WOX 5291 - XR CHEST 2V FRONTAL/LAT / PROCEDURE REASON: Pre-operative clearance * * * * Physician Interpretation * * * * EXAMINATION: CHEST RADIOGRAPH (2 VIEW FRONTAL & LATERAL) CLINICAL HISTORY: Pre-operative clearance MQ: XC2_6 EXAM DATE/TIME: 09/27/2022 12:59 PM COMPARISON: 04/04/2022 RESULT: Lines, tubes, and devices: None. Lungs and pleura: No consolidation. No lung mass. No pleural effusion. No pneumothorax. Cardiomediastinal silhouette: Stable enlarged cardiomediastinal silhouette. Bones and soft tissues: Degenerative change and osteopenia IMPRESSION IMPRESSION: No acute radiographic abnormality. Cardiomegaly Reporting Coordinator: [facility] Transcribe Date/Time: Sep 30 2022 10:04A Dictated by : LUIS BALBUENA MD This examination was interpreted and the report reviewed and electronically signed by: LUIS BALBUENA MD on Sep 30 2022 10:06AM EST [facility] XR Chest PA and LateralOrder ed By: [facility] Provider on 09-30-2022 [facility] Comprehensive metabolic 2000 panelon 09-28-2022 Albumin [Mass/Vol] 3.7 g/dL Low 3.9 - 4.9 g/dL [facility] ALP [Catalytic activity/Vol] 85 U/L 34 - 123 U/L [facility] ALT [Catalytic activity/Vol] 10 U/L 7 - 38 U/L [facility] Anion gap [Moles/Vol] 12 mmol/L 9 - 18 mmol/L [facility] AST [Catalytic activity/Vol] 14 U/L 13 - 35 U/L [facility] Bilirubin [Mass/Vol] 0.6 mg/dL 0.2 - 1 .3 mg/dL [facility] Calcium [Mass/Vol] 9.0 mg/dL 8.5 - 10. 2 mg/dL [facility] Chloride [Moles/Vol] 107 mmol/L High 97 - 10 5 mmol/L [facility] CO2 [Moles/Vol] 25 mmol/L 22 - 30 mmol/L [facility] Creatinine [Mass/Vol] 1.19 mg/dL High 0.58 - 0.96 mg/dL [facility] Estimated Glomerular Filtration Rate 50 mL/min/1.73m Low >=60 mL/min/1.73m [facility] Glucose [Mass/Vol] 115 mg/dL High 74 - 99 mg/dL [facility] Potassium [Moles/Vol] 4.2 mmol/L 3.7 - 5.1 mmol/L [facility] Protein [Mass/Vol] 6.8 g/dL 6.3 - 8.0 g/dL [facility] Sodium [Moles/Vol] 144 mmol/L 136 - 144 mmol/L [facility] Urea nitrogen [Mass/Vol] 20 mg/dL 7 - 21 mg/dL [facility] HbA1c (Bld)on 09-28-2022 Average glucose Estimated from glycated hemoglobin (Bld) [Mass/Vol] 140 mg/dL [facility] HbA1c (Bld) [Mass fraction] 6.5 % High 4.3 - 5.6 % [facility] LIPID PANEL, NONFASTINGon Cholesterol [Mass/Vol] 139 mg/dL <200 mg/dL [facility] HDL Cholesterol, Nonfasting 38 mg/dL Low >39 mg/dL [facility] LDL Cholesterol, Nonfasting 71 mg/dL <100 mg/dL [facility] LDL/HDL Ratio, Nonfasting 1.87 mg/dL <2.54 mg/dL [facility] Non HDL Cholesterol, Nonfasting 101 mg/dL <130 mg/dL [facility] Total Chol/HDL Ratio, Nonfasting 3.66 mg/dL <5.10 mg/dL [facility] Triglycerides, Nonfasting 152 mg/dL High <150 mg/dL [facility] VLDL Cholesterol, Nonfasting 30 mg/dL High <30 mg/dL [facility] TSH BLDon 09-28-2022 TSH Qn 3.040 m[IU]/L 0.270 - 4.200 mIU/L [facility] CBC W Auto Differential pane l (Bld)on 09-27-2022 Basophils (Bld) [#/Vol] 0.03 10*3/uL <0.11 k/uL [facility] Basophils/100 WBC (Bld) 0.4 % [facility] Differential cell count method Nom (Bld) Auto [facility] Eosinophils (Bld) [#/Vol] 0.23 10*3/uL <0.46 k/uL [facility] Eosinophils/100 WBC (Bld) 2.7 % [facility] Erythrocyte distribution width (RBC) [Ratio] 15.2 % High 11.5 - 15.0 % [facility] Hematocrit (Bld) [Volume fraction] 41.0 % 36.0 - 46.0 % [facility] Hemoglobin (Bld) [Mass/Vol] 12.5 g/dL 11.5 - 15.5 g/dL [facility] Immature granulocytes (Bld) [#/Vol] 0.03 10*3/uL <0.10 k/uL [facility] Immature granulocytes/100 WBC (Bld) 0.4 % [facility] Lymphocytes (Bld) [#/Vol] 1.23 10*3/uL 1.00 - 4.00 k/uL [facility] Lymphocytes/100 WBC (Bld) 14.6 % [facility] MCH (RBC) [Entitic mass] 28.9 pg 26.0 - 34.0 pg [facility] MCHC (RBC) [Mass/Vol] 30.5 g/dL 30.5 - 36.0 g/dL [facility] MCV (RBC) [Entitic vol] 94.9 fL 80.0 - 100.0 fL [facility] Monocytes (Bld) [#/Vol] 0.65 10*3/uL <0.87 k/uL [facility] Monocytes/100 WBC (Bld) 7.7 % [facility] Neutrophils (Bld) [#/Vol] 6.23 10*3/uL 1.45 - 7.50 k/uL [facility] Neutrophils/100 WBC (Bld) 74.2 % [facility] Nucleated RBC (Bld) [#/Vol] <0.01 k/uL [facility] Nucleated RBC/100 WBC (Bld) [Ratio] 0.0 /100 WBC [facility] Platelet mean volume (Bld) [Entitic vol] 10.2 fL 9.0 - 12.7 fL [facility] Platelets (Bld) [#/Vol] 195 10*3/uL 150 - 400 k/uL [facility] RBC (Bld) [#/Vol] 4.32 10*6/uL 3.90 - 5.2 0 m/uL [facility] WBC (Bld) [#/Vol] 8.40 10*3/uL 3.70 - 11. 00 k/uL [facility] XR CHEST 2V FRONTAL/LATon [facility] XR Chest PA and Lateralon Radiology Study observation (narrative) [facility] Absolute lymphocyte countOrd ered By: Dr. Gregg on 08-08-2022 Lymphocytes Auto (Unsp spec) [#/Vol] 0.81 10*3/uL 0.83-4.51 [facility] Basophil percentageOrdered B y: Dr. Gregg on 08-08-2022 Basophils/100 WBC (Bld) 0.2 % 0-1 [facility] Eosinophils/100 WBC (Bld) 6.5 % 0-5 [facility] Neutrophils (Bld) [#/Vol] 4.0 10*3/uL 2.0-7.7 [facility] Neutrophils/100 WBC (Bld) 66.7 % 47-70 [facility] WBC (Bld) [#/Vol] 6.0 10*3/uL 4.4-11.0 [facility] Blood erythrocytes count (nu mber/volume)Ordered By: Dr. Gregg on 08-08-2022 RBC (Bld) [#/Vol] 2.81 10*6/uL 4.2-5.4 [facility] Blood hemoglobin measurement (mass/volume)Ordered By: Dr. Gregg on 08-08-2022 Hemoglobin (Bld) [Mass/Vol] 8.5 g/dL 12.0-15.0 [facility] Blood lymphocytes/100 leukoc ytesOrdered By: Dr. Gregg on 08-08-2022 Lymphocytes/100 WBC (Bld) 13.5 % 19-41 [facility] Blood monocytes/100 leukocyt esOrdered By: Dr. Gregg on 08-08-2022 Monocytes/100 WBC (Bld) 12.1 % 0-10 [facility] Blood platelet mean volumeOr dered By: Dr. Gregg on 08-08-2022 Platelet mean volume (Bld) [Entitic vol] 10.7 fL 6.2-12.0 [facility] COVID-19 virus antigen assay Ordered By: Dr. Gregg on 08-08-2022 SARS-CoV-2 (COVID-19) Ag IA.rapid Ql (Resp) [facility] Determination of erythrocyte mean corpuscular volume (MCV)Ordered By: Dr. Gregg on 08-08-2022 MCV (RBC) [Entitic vol] 98.9 fL 81-99 [facility] Glucose Glucometer (BldC) [M ass/Vol]Ordered By: Dr. Gregg on 08-08-2022 Glucose [Mass/Vol] 197 mg/dL 74-106 [facility] Comment on above: MANAGEMENT OF PATIEN T CARE PER NURSING PROTOCOL Hematocrit Auto (Bld) [Volum e fraction]Ordered By: Dr. Gregg on 08-08-2022 Hematocrit (Bld) [Volume fraction] 27.8 % 37-47 [facility] Laboratory - Hematology and Cell countsOrdered By: Dr. Gregg on 08-08-2022 Erythrocyte distribution width (RBC) [Entitic vol] 52.0 fL 35.1-43.9 [facility] Erythrocyte distribution width (RBC) [Ratio] 14.5 % 11.6-14.6 [facility] Immature granulocytes/100 WBC (Bld) 1.000 % 0.0-0.9 [facility] Comment on above: IG% - Immature Granu locytes (promyelocytes, myelocytes and metamyelocytes) > 1% indicates that a LEFT SHIFT is Present. MCH (RBC) [Entitic mass] 30.2 pg 27.0-32.0 [facility] Nucleated RBC/100 WBC (Bld) [Ratio] 0.5 % 0-5 [facility] MCHC Auto (RBC) [Mass/Vol]Or dered By: Dr. Gregg on 08-08-2022 MCHC (RBC) [Mass/Vol] 30.6 g/dL 32-36 [facility] Platelets bldOrdered By: Dr. Gregg on 08-08-2022 Platelets (Bld) [#/Vol] 168 10*3/uL 150-450 [facility] Basophil percentageOrdered B y: Dr. Gregg on 08-07-2022 Chloride [Moles/Vol] 110 mmol/L 98-107 [facility] Glucose [Mass/Vol] 104 mg/dL 74-106 [facility] Comment on above: Fasting Glucose resu lt from 100 to 125 mg/dL suggests IMPAIRED HOMEOSTASIS per A.D.A. criteria. Potassium [Moles/Vol] 4.1 mmol/L 3.5-5.1 [facility] Sodium [Moles/Vol] 141 mmol/L 136-145 [facility] Laboratory - Chemistry and C hemistry - challengeOrdered By: Dr. Gregg on 08-07-2022 CO2 [Moles/Vol] 29.0 mmol/L 21.0-32.0 [facility] Urea nitrogen/Creatinine [Mass ratio] 23.1 mg/mg 10-20 [facility] No Panel InformationOrdered By: Dr. Gregg on 08-07-2022 Estimated Creatinine Clearance Calc 39.98 ml/min [facility] Estimated GFR (MDRD) Amer 65 mL/min >60 [facility] Comment on above: GFR Calc Estimated GFR (MDRD) Non-Af Amer 54 mL/min >60 [facility] Comment on above: Non- GFR Calc Thyroid Stimulating Hormone (TSH) 1.27 uIU/mL 0.358-3.74 [facility] Serum or plasma calcium mariel urement (mass/volume)Ordered By: Dr. Gregg on 08-07-2022 Calcium [Mass/Vol] 8.7 mg/dL 8.5-10.1 [facility] Serum or plasma creatinine m easurement (mass/volume)Ordered By: Dr. Gregg on 08-07-2022 Creatinine [Mass/Vol] 1.08 mg/dL 0.55-1.02 [facility] Comment on above: The validity of the calculated GFR & GFRAA in patients over 70 years has not been determined. Clinical correlation is essential. Serum or plasma urea nitroge n measurement (mass/volume)Ordered By: Dr. Gregg on 08-07-2022 Urea nitrogen [Mass/Vol] 25 mg/dL 7-18 [facility] Thin prep Papanicolaou smear with manual screeningOrdered By: Dr. Gregg on 08-07-2022 Thin prep Papanicolaou smear with manual screening 2 5-15 [facility] Basophil percentageOrdered B y: Dr. Gregg on 08-06-2022 Basophil percentage 3.2 mg/dL 2.5-4.9 [facility] Laboratory - Chemistry and C hemistry - challengeOrdered By: Dr. Gregg on 08-06-2022 Magnesium [Mass/Vol] 2.4 mg/dL 1.6-2.6 [facility] Whole blood hemoglobin A1c/t otal hemoglobin ratio (mass fraction)Ordered By: Dr. Stuart on 08-05-2022 HbA1c (Bld) [Mass fraction] 7.3 % 3.8-5.6 [facility] Comment on above: Normal < 5.7 % Predi abetic 5.7 - 6.4 % Diabetic >or= 6.5 % Please note range changes. Absolute lymphocyte counton 08-03-2022 Lymphocytes Auto (Unsp spec) [#/Vol] 1.15 10*3/uL 0.83-4.51 [facility] Work Phone: Basophil percentageOrdered B y: Dr. Cohn on 08-03-2022 Bilirubin [Mass/Vol] 1.40 mg/dL 0.20-1.00 [facility] Comment on above: For patients on eltr ombopag therapy, use of Dimension Cascade TBIL is not recommended. Protein [Mass/Vol] 7.7 g/dL 6.4-8.2 [facility] Basophil percentageon 2021 Basophils/100 WBC (Bld) 0.4 % 0-1 [facility] Work Phone: Chloride [Moles/Vol] 106 mmol/L 98-107 [facility] Work Phone: Eosinophils/100 WBC (Bld) 2.3 % 0-5 [facility] Work Phone: [phone] Glucose [Mass/Vol] 135 mg/dL 74-106 [facility] Work Phone: Comment on above: Fasting Glucose resu lt greater than or equal to 126 mg/dL suggests DIABETES MELLITUS per A.D.A. criteria. Neutrophils (Bld) [#/Vol] 7.4 10*3/uL 2.0-7.7 [facility] Work Phone: Neutrophils/100 WBC (Bld) 77.1 % 47-70 [facility] Work Phone: [phone] Potassium [Moles/Vol] 4.5 mmol/L 3.5-5.1 [facility] Work Phone: Comment on above: Moderate Hemolysis, Result may be falsely increased. Sodium [Moles/Vol] 141 mmol/L 136-145 [facility] Work Phone: WBC (Bld) [#/Vol] 9.6 10*3/uL 4.4-11.0 [facility] Work Phone: Blood erythrocytes count (nu mber/volume)on 08-03-2022 RBC (Bld) [#/Vol] 4.28 10*6/uL 4.2-5.4 [facility] Work Phone: Blood hemoglobin measurement (mass/volume)on 08-03-2022 Hemoglobin (Bld) [Mass/Vol] 12.9 g/dL 12.0-15.0 [facility] Work Phone: Blood lymphocytes/100 leukoc yteson 08-03-2022 Lymphocytes/100 WBC (Bld) 11.9 % 19-41 [facility] Work Phone: Blood monocytes/100 leukocyt eson 08-03-2022 Monocytes/100 WBC (Bld) 7.6 % 0-10 [facility] Work Phone: Blood platelet mean volumeon 08-03-2022 Platelet mean volume (Bld) [Entitic vol] 10.2 fL 6.2-12.0 [facility] Work Phone: Determination of erythrocyte mean corpuscular volume (MCV)on 08-03-2022 MCV (RBC) [Entitic vol] 94.9 fL 81-99 [facility] Work Phone: Hematocrit Auto (Bld) [Volum e fraction]on 08-03-2022 Hematocrit (Bld) [Volume fraction] 40.6 % 37-47 [facility] Work Phone: Laboratory - Chemistry and C hemistry - challengeOrdered By: Dr. Cohn on 08-03-2022 ALP [Catalytic activity/Vol] 77 U/L 45-117 [facility] ALT [Catalytic activity/Vol] 12 U/L 13-56 [facility] Globulin (S) [Mass/Vol] 4.4 g/dL 2.2-4.2 [facility] Laboratory - Chemistry and C hemistry - challengeon 08-03-2022 CO2 [Moles/Vol] 30.0 mmol/L 21.0-32.0 [facility] Work Phone: Urea nitrogen/Creatinine [Mass ratio] 13.8 mg/mg 10-20 [facility] Work Phone: Laboratory - Hematology and Cell countson 08-03-2022 Erythrocyte distribution width (RBC) [Entitic vol] 49.4 fL 35.1-43.9 [facility] Work Phone: Erythrocyte distribution width (RBC) [Ratio] 14.4 % 11.6-14.6 [facility] Work Phone: Immature granulocytes/100 WBC (Bld) 0.700 % 0.0-0.9 [facility] Work Phone: Comment on above: IG% - Immature Granu locytes (promyelocytes, myelocytes and metamyelocytes) > 1% indicates that a LEFT SHIFT is Present. MCH (RBC) [Entitic mass] 30.1 pg 27.0-32.0 [facility] Work Phone: Nucleated RBC/100 WBC (Bld) [Ratio] 0 % 0-5 [facility] Work Phone: MCHC Auto (RBC) [Mass/Vol]on 08-03-2022 MCHC (RBC) [Mass/Vol] 31.8 g/dL 32-36 [facility] Work Phone: No Panel InformationOrdered By: Dr. Cohn on 08-03-2022 Troponin I High Sensitivity 13 pg/mL 3.0-54.0 [facility] Comment on above: Please Note: New [place] t Units and Gender Specific Reference Ranges. For more information see Policy Stat Procedure Cascade High Sensitivity Troponin (TNIH) and attachments. Vitamin D 25-Hydroxy 57.2 ng/mL [facility] Comment on above: Vitamin D 25(OH) Sta tus Range Deficiency <20 ng/mL (50nmol/L) Insufficiency 20 - 30 ng/mL (50 - 75 nmol/L) Sufficiency 30 - 100 ng/mL (75 - 250 nmol/L) Toxicity >100 ng/mL (>250 nmol/L) No Panel Informationon 08-03 Estimated Creatinine Clearance Calc 33.21 ml/min [facility] Work Phone: Estimated GFR (MDRD) Amer 53 mL/min >60 [facility] Work Phone: Comment on above: GFR Calc Estimated GFR (MDRD) Non-Af Amer 43 mL/min >60 [facility] Work Phone: Comment on above: Non- GFR Calc Platelets bldon 08-03-2022 Platelets (Bld) [#/Vol] 202 10*3/uL 150-450 [facility] Work Phone: Serum or plasma albumin mariel urement (mass/volume)Ordered By: Dr. Cohn on 08-03-2022 Albumin [Mass/Vol] 3.3 g/dL 3.2-5.0 [facility] Serum or plasma albumin/glob ulin mass ratioOrdered By: Dr. Cohn on 08-03-2022 Albumin/Globulin [Mass ratio] 0.8 {ratio} 0.9-2.4 [facility] Serum or plasma calcium mariel urement (mass/volume)on 08-03-2022 Calcium [Mass/Vol] 9.6 mg/dL 8.5-10.1 [facility] Work Phone: Serum or plasma creatinine m easurement (mass/volume)on 08-03-2022 Creatinine [Mass/Vol] 1.30 mg/dL 0.55-1.02 [facility] Work Phone: Comment on above: The validity of the calculated GFR & GFRAA in patients over 70 years has not been determined. Clinical correlation is essential. Serum or plasma urea nitroge n measurement (mass/volume)on 08-03-2022 Urea nitrogen [Mass/Vol] 18 mg/dL 7-18 [facility] Work Phone: Thin prep Papanicolaou smear with manual screeningOrdered By: Dr. Cohn on 08-03-2022 Thin prep Papanicolaou smear with manual screening 14 U/L 15-37 [facility] Thin prep Papanicolaou smear with manual screeningon 08-03-2022 Thin prep Papanicolaou smear with manual screening 5 5-15 [facility] Work Phone: URINE CULTUREon 07-14-2022 Bacteria identified Cx Nom (U) >=100,000 CFU/ml Escherichia coli Abnormal [facility] Bacteria identified Cx Nom (U) >=100,000 CFU/ml Aerococcus urinae Abnormal [facility] UA DIP, URINE (POC)on 2021 BILIRUBIN UA (POCT) Negative Negative [facility] CLARITY UA (POCT) Cloudy [facility] COLOR UA (POCT) Yellow [facility] GLUCOSE UA (POCT) Negative Negative mg/dL [facility] HEMOGLOBIN/BLOOD UA (POCT) Negative Negative [facility] KETONE UA (POCT) Negative Negative mg/dL [facility] LEUKOCYTES UA (POCT) Moderate Abnormal Negative [facility] NITRITE UA (POCT) Negative Negative [facility] PH UA (POCT) 6.0 4.5 - 8.0 [facility] Protein Ql (U) Negative Negative mg/dL [facility] SPECIFIC GRAVITY UA (POCT) 1.015 1.005 - 1.030 [facility] UROBILINOGEN UA (POCT) 1.0 E.U./dL Trinidad l E.U./dL [facility] URINE CULTUREon 07-11-2022 Bacteria identified Cx Nom (U) Invalid Interpretation Code [facility] Absolute lymphocyte counton 06-12-2022 Lymphocytes Auto (Unsp spec) [#/Vol] 0.87 10*3/uL 0.83-4.51 [facility] Work Phone: Basophil percentageon 2021 Basophils/100 WBC (Bld) 0.3 % 0-1 [facility] Work Phone: Chloride [Moles/Vol] 109 mmol/L 98-107 [facility] Work Phone: Eosinophils/100 WBC (Bld) 4.7 % 0-5 [facility] Work Phone: Glucose [Mass/Vol] 62 mg/dL 74-106 [facility] Work Phone: Neutrophils (Bld) [#/Vol] 4.2 10*3/uL 2.0-7.7 [facility] Work Phone: [phone] Neutrophils/100 WBC (Bld) 68.3 % 47-70 [facility] Work Phone: [phone] Potassium [Moles/Vol] 3.8 mmol/L 3.5-5.1 [facility] Work Phone: Sodium [Moles/Vol] 142 mmol/L 136-145 [facility] Work Phone: WBC (Bld) [#/Vol] 6.1 10*3/uL 4.4-11.0 [facility] Work Phone: Blood erythrocytes count (nu mber/volume)on 06-12-2022 RBC (Bld) [#/Vol] 4.08 10*6/uL [facility].2[facility]5.[facility]: Blood hemoglobin measurement (mass/volume)on 06-12-2022 Hemoglobin (Bld) [Mass/Vol] 12.2 g/dL 12.0-15.0 [facility] Work Phone: [phone] Blood lymphocytes/100 leukoc yteson 06-12-2022 Lymphocytes/100 WBC (Bld) 14.2 % 19-41 [facility] Work Phone: [phone] Blood monocytes/100 leukocyt eson 06-12-2022 Monocytes/100 WBC (Bld) 12.2 % 0-10 [facility] Work Phone: [phone] Blood platelet mean volumeon 06-12-2022 Platelet mean volume (Bld) [Entitic vol] 10.2 fL 6.2-12.0 [facility] Work Phone: Determination of erythrocyte mean corpuscular volume (MCV)on 06-12-2022 MCV (RBC) [Entitic vol] 96.1 fL 81-99 [facility] Work Phone: Hematocrit Auto (Bld) [Volum e fraction]on 06-12-2022 Hematocrit (Bld) [Volume fraction] 39.2 % 37-47 [facility] Work Phone: Laboratory - Chemistry and C hemistry - challengeon 06-12-2022 CO2 [Moles/Vol] 31.0 mmol/L 21.0-32.0 [facility] Work Phone: Urea nitrogen/Creatinine [Mass ratio] 15.0 mg/mg 10-20 [facility] Work Phone: Laboratory - Hematology and Cell countson 06-12-2022 Erythrocyte distribution width (RBC) [Entitic vol] 54.3 fL 35.1-43.9 [facility] Work Phone: Erythrocyte distribution width (RBC) [Ratio] 15.2 % 11.6-14.6 [facility] Work Phone: Immature granulocytes/100 WBC (Bld) 0.300 % 0.0-0.9 [facility] Work Phone: Comment on above: IG% - Immature Granu locytes (promyelocytes, myelocytes and metamyelocytes) > 1% indicates that a LEFT SHIFT is Present. MCH (RBC) [Entitic mass] 29.9 pg 27.0-32.0 [facility] Work Phone: Nucleated RBC/100 WBC (Bld) [Ratio] 0 % 0-5 [facility] Work Phone: MCHC Auto (RBC) [Mass/Vol]on 06-12-2022 MCHC (RBC) [Mass/Vol] 31.1 g/dL 32-36 [facility] Work Phone: No Panel Informationon 06-12 Estimated GFR (MDRD) Amer 62 mL/min >60 [facility] Work Phone: Comment on above: GFR Calc Estimated GFR (MDRD) Non-Af Amer 51 mL/min >60 [facility] Work Phone: Comment on above: Non- GFR Calc Platelets bldon 06-12-2022 Platelets (Bld) [#/Vol] 194 10*3/uL 150-450 [facility] Work Phone: Serum or plasma calcium mariel urement (mass/volume)on 06-12-2022 Calcium [Mass/Vol] 9.1 mg/dL 8.5-10.1 [facility] Work Phone: Serum or plasma creatinine m easurement (mass/volume)on 06-12-2022 Creatinine [Mass/Vol] 1.13 mg/dL 0.55-1.02 [facility] Work Phone: Comment on above: The validity of the calculated GFR & GFRAA in patients over 70 years has not been determined. Clinical correlation is essential. Serum or plasma urea nitroge n measurement (mass/volume)on 06-12-2022 Urea nitrogen [Mass/Vol] 17 mg/dL 7-18 [facility] Work Phone: Thin prep Papanicolaou smear with manual screeningon 06-12-2022 Thin prep Papanicolaou smear with manual screening 2 5-15 [facility] Work Phone: PVR ANK/RAMIREZ/TOE NIRU VAS LAB on 06-07-2022 [facility] UA DIP, URINE (POC)on 2021 BILIRUBIN UA (POCT) Negative Negative [facility] CLARITY UA (POCT) Clear [facility] COLOR UA (POCT) Yellow [facility] GLUCOSE UA (POCT) Negative Negative mg/dL [facility] HEMOGLOBIN/BLOOD UA (POCT) Negative Negative [facility] KETONE UA (POCT) Negative Negative mg/dL [facility] LEUKOCYTES UA (POCT) Trace Abnormal Negative [facility] NITRITE UA (POCT) Negative Negative [facility] PH UA (POCT) 6.0 4.5 - 8.0 [facility] Protein Ql (U) Negative Negative mg/dL [facility] SPECIFIC GRAVITY UA (POCT) 1.015 1.005 - 1.030 [facility] UROBILINOGEN UA (POCT) 1.0 E.U./dL Trinidad l E.U./dL [facility] XR Chest PA and Lateralon IMPRESSION: Questionable scattered small hazy opacities in the bilateral lungs. Cardiomegaly and pulmonary hypertension. Reporting Coordinator: ALLEGRA Transcribe Date/Time: Apr 05 2022 11:05A Dictated by : LEAH GORDON MD This examination was interpreted and the report reviewed and electronically signed by: LEAH GORDON MD on Apr 05 2022 11:15AM EST ZZZ_DO_NOT_ USE_DIVISIO N OF RADIOLOGY * * *Final Report* * * DATE OF EXAM: Apr 04 2022 5:40PM WOX [id number] - XR CHEST 2V FRONTAL/LAT / PROCEDURE REASON: Itching * * * * Physician Interpretation * * * * EXAMINATION: CHEST RADIOGRAPH (2 VIEW FRONTAL & LATERAL) CLINICAL HISTORY: Itching MQ: XC2_6 EXAM DATE/TIME: 04/04/2022 5:40 PM COMPARISON: Chest x-ray on 08/17/2019. RESULT: Lines, tubes, and devices: None. Lungs and pleura: There are questionable scattered small hazy opacities in the bilateral lungs. No mass lesion identified. No pleural effusions or pneumothorax. Cardiomediastinal silhouette: There is cardiomegaly, with enlargement of pulmonary arteries and abrupt tapering, suggestive of pulmonary hypertension. Bones and soft tissues: The spine shows exaggerated kyphosis and degenerative changes. ZZZ_DO_NOT_ USE_DIVISIO N OF RADIOLOGY Provider, [facility] - 04/05/2022 * * *Final Report* * * DATE OF EXAM: Apr 04 2022 5:40PM WOX [id number] - XR CHEST 2V FRONTAL/LAT / PROCEDURE REASON: Itching * * * * Physician Interpretation * * * * EXAMINATION: CHEST RADIOGRAPH (2 VIEW FRONTAL & LATERAL) CLINICAL HISTORY: Itching MQ: XC2_6 EXAM DATE/TIME: 04/04/2022 5:40 PM COMPARISON: Chest x-ray on 08/17/2019. RESULT: Lines, tubes, and devices: None. Lungs and pleura: There are questionable scattered small hazy opacities in the bilateral lungs. No mass lesion identified. No pleural effusions or pneumothorax. Cardiomediastinal silhouette: There is cardiomegaly, with enlargement of pulmonary arteries and abrupt tapering, suggestive of pulmonary hypertension. Bones and soft tissues: The spine shows exaggerated kyphosis and degenerative changes. IMPRESSION IMPRESSION: Questionable scattered small hazy opacities in the bilateral lungs. Cardiomegaly and pulmonary hypertension. Reporting Coordinator: PSCB Transcribe Date/Time: Apr 05 2022 11:05A Dictated by : LEAH GORDON MD This examination was interpreted and the report reviewed and electronically signed by: LEAH GORDON MD on Apr 05 2022 11:15AM EST [facility] XR Chest PA and LateralOrder ed By: Ccf Provider on 04-05-2022 [facility] XR Chest PA and Lateralon Radiology Study observation (narrative) [facility] TOX SCREEN ROUT URon 022 Amphetamines Confirm (U) [Mass/Vol] Negative Negative [facility] Barbiturates Urine Negative Negative [facility] Benzodiazepines Urine Negative Negative [facility] Cannabinoids, Urine Negative Negative [facility] Cocaine Ql (U) Negative Negative [facility] Ethanol (U) [Mass/Vol] <11 <11 mg/dL [facility] Opiates Screen Ql (U) Negative Negative [facility] oxyCODONE cutoff Screen (U) [Mass/Vol] Negative Negative [facility] Phencyclidine Ql (U) Negative Negative [facility] UA DIP, URINE (POC)on 2021 BILIRUBIN UA (POCT) Negative Negative [facility] CLARITY UA (POCT) Slightly Cloudy [facility] COLOR UA (POCT) Yellow [facility] GLUCOSE UA (POCT) Negative Negative mg/dL [facility] HEMOGLOBIN/BLOOD UA (POCT) Negative Negative [facility] KETONE UA (POCT) Negative Negative mg/dL [facility] LEUKOCYTES UA (POCT) Negative Negative [facility] NITRITE UA (POCT) Negative Negative [facility] PH UA (POCT) 7.0 4.5 - 8.0 [facility] Protein Ql (U) Negative Negative mg/dL [facility] SPECIFIC GRAVITY UA (POCT) 1.015 1.005 - 1.030 [facility] UROBILINOGEN UA (POCT) 1.0 E.U./dL Trinidad l E.U./dL [facility] ALBUMIN/CREAT RATIO RND URon 03-02-2022 Albumin DL <= 20 mg/L (U) [Mass/Vol] 34.9 mg/L [facility] Albumin/Creatinine (U) [Mass ratio] 35 mg/g High <30 mg/g [facility] Creatinine (U) [Mass/Vol] 99.1 mg/dL 20.0 - 300.0 mg/dL [facility] CBC panel Auto (Bld)on 03-02 Erythrocyte distribution width (RBC) [Ratio] 14.3 % 11.5 - 15.0 % [facility] Hematocrit (Bld) [Volume fraction] 29.2 % Low 36.0 - 46.0 % [facility] Hemoglobin (Bld) [Mass/Vol] 8.8 g/dL Low 11.5 - 15.5 g/dL [facility] MCH (RBC) [Entitic mass] 28.8 pg 26.0 - 34.0 pg [facility] MCHC (RBC) [Mass/Vol] 30.1 g/dL Low 30.5 - 36.0 g/dL [facility] MCV (RBC) [Entitic vol] 95.4 fL 80.0 - 100.0 fL [facility] Nucleated RBC (Bld) [#/Vol] 0.05 10*3/uL High <0.01 k/uL [facility] Platelet mean volume (Bld) [Entitic vol] 11.1 fL 9.0 - 12.7 fL [facility] Platelets (Bld) [#/Vol] 232 10*3/uL 150 - 400 k/uL [facility] RBC (Bld) [#/Vol] 3.06 10*6/uL Low 3.90 - 5.2 0 m/uL [facility] WBC (Bld) [#/Vol] 7.56 10*3/uL 3.70 - 11. 00 k/uL [facility] Comprehensive metabolic 2000 panelon 03-02-2022 Albumin [Mass/Vol] 3.6 g/dL Low 3.9 - 4.9 g/dL [facility] ALP [Catalytic activity/Vol] 69 U/L 34 - 123 U/L [facility] ALT [Catalytic activity/Vol] 7 U/L 7 - 38 U/L [facility] Anion gap [Moles/Vol] 12 mmol/L 9 - 18 mmol/L [facility] AST [Catalytic activity/Vol] 8 U/L Low 13 - 35 U/L [facility] Bilirubin [Mass/Vol] 0.6 mg/dL 0.2 - 1 .3 mg/dL [facility] Calcium [Mass/Vol] 9.2 mg/dL 8.5 - 10. 2 mg/dL [facility] Chloride [Moles/Vol] 102 mmol/L 97 - 10 5 mmol/L [facility] CO2 [Moles/Vol] 24 mmol/L 22 - 30 mmol/L [facility] Creatinine [Mass/Vol] 1.15 mg/dL High 0.58 - 0.96 mg/dL [facility] Estimated Glomerular Filtration Rate 52 mL/min/1.73m Low >=60 mL/min/1.73m [facility] Glucose [Mass/Vol] 310 mg/dL High 74 - 99 mg/dL [facility] Potassium [Moles/Vol] 4.6 mmol/L 3.7 - 5.1 mmol/L [facility] Protein [Mass/Vol] 7.2 g/dL 6.3 - 8.0 g/dL [facility] Sodium [Moles/Vol] 138 mmol/L 136 - 144 mmol/L [facility] Urea nitrogen [Mass/Vol] 20 mg/dL 7 - 21 mg/dL [facility] HbA1c (Bld)on 03-02-2022 Average glucose Estimated from glycated hemoglobin (Bld) [Mass/Vol] 183 mg/dL [facility] HbA1c (Bld) [Mass fraction] 8.0 % High 4.3 - 5.6 % [facility] LIPID PANEL, NONFASTINGon Cholesterol [Mass/Vol] 131 mg/dL <200 mg/dL [facility] HDL Cholesterol, Nonfasting 36 mg/dL Low >39 mg/dL [facility] LDL Cholesterol, Nonfasting 58 mg/dL <100 mg/dL [facility] LDL/HDL Ratio, Nonfasting 1.61 mg/dL <2.54 mg/dL [facility] Non HDL Cholesterol, Nonfasting 95 mg/dL <130 mg/dL [facility] Total Chol/HDL Ratio, Nonfasting 3.64 mg/dL <5.10 mg/dL [facility] Triglycerides, Nonfasting 185 mg/dL High <150 mg/dL [facility] VLDL Cholesterol, Nonfasting 37 mg/dL High <30 mg/dL [facility] Absolute lymphocyte counton 02-23-2022 Lymphocytes Auto (Unsp spec) [#/Vol] 1.10 10*3/uL 0.83-4.51 [facility] Work Phone: Basophil percentageon 2021 Basophils/100 WBC (Bld) 0.3 % 0-1 [facility] Work Phone: Chloride [Moles/Vol] 106 mmol/L 98-107 [facility]: Eosinophils/100 WBC (Bld) 3.3 % 0-5 [facility] Work Phone: Glucose [Mass/Vol] 281 mg/dL 74-106 [facility] Work Phone: Comment on above: Glucose result great er than or equal to 200 mg/dLsuggests DIABETES MELLITUS per A.D.A. criteria. Neutrophils (Bld) [#/Vol] 9.8 10*3/uL 2.0-7.7 [facility] Work Phone: Neutrophils/100 WBC (Bld) 79.4 % 47-70 [facility] Work Phone: [phone] Potassium [Moles/Vol] 3.3 mmol/L 3.5-5.1 [facility] Work Phone: Sodium [Moles/Vol] 141 mmol/L 136-145 [facility] Work Phone: [phone] WBC (Bld) [#/Vol] 12.4 10*3/uL 4.4-11.[facility]: Blood erythrocytes count (nu mber/volume)on 02-23-2022 RBC (Bld) [#/Vol] 3.75 10*6/uL 4.2-5.4 [facility]: Blood hemoglobin measurement (mass/volume)on 02-23-2022 Hemoglobin (Bld) [Mass/Vol] 11.2 g/dL 12.0-15.0 [facility] Work Phone: Blood lymphocytes/100 leukoc yteson 02-23-2022 Lymphocytes/100 WBC (Bld) 8.9 % 19-41 [facility] Work Phone: Blood monocytes/100 leukocyt eson 02-23-2022 Monocytes/100 WBC (Bld) 7.7 % 0-10 [facility] Work Phone: Blood platelet mean volumeon 02-23-2022 Platelet mean volume (Bld) [Entitic vol] 10.0 fL 6.2-12.0 [facility] Work Phone: Determination of erythrocyte mean corpuscular volume (MCV)on 02-23-2022 MCV (RBC) [Entitic vol] 94.4 fL 81-99 [facility] Work Phone: Guy 02-23-2022 EMERGENCY PHYSICIAN REPORT This is a preliminary report only, as the practitioner review and authentication has not occurred. Normal [facility] [place] ER PHYSICIAN ASSESSMENT RECORDS : FlexChartData Event Time: 02/23/2022 16:20 Status: Signed [facility] Tamia Henry [[id number] ] Attending Physician / / 1955 Chart (V2b) Chart created at 02/23/2022 16:17 by Thai Moran Chart closed at 02/23/2022 17:34 Entry in Emergency Department at 02/23/2022 14:14 Patient Name: Tamia Panda Record Number: [id number] Date: 02/23/2022 16:17 Entered Department at: 02/23/2022 14:14 Patient Seen at: 02/23/2022 15:44 Historian: Patient PCP: NANDA OLIVEIRA Chief Complaint:Patient coming in for a nosebleed. Patient had it packed 3 times at [facility] 3 times. Patient was sent home and bleeding continued. Triage Note reviewed and Initial Vital Signs reviewed. Temperature: 97.9 F (36.6 C). Pulse: 76. Respiratory Rate: 18. Blood-pressure: 147/89. Oxygen Saturation: 97%. History of Present Illness: Patient presents with nasal bleeding from her right nares. It started last night. She is on Eliquis. She went to [place] [facility]. They evidently traded out 3 nasal packings that she continue to have some bleeding. She now just has a small amount that she keeps having to dab but no active bleeding does not feel anything going down the back of her throat. Denies [facility] PATIENT NAME: TAMIA PANDA [address] MEDICAL REC #: [id number] [place] [address] EMERGENCY DEPARTMENT REPORT EMERGENCY DEPARTMENT PHYSICIAN lightheadedness. They checked her hemoglobin and told her it was okay there. She came here by car. Denies shortness of breath or weakness. She is chronically on oxygen Review of Systems. All other systems reviewed and negative.. Past History, Medications, Allergies, Social History and Family History reviewed in nurses note. Medications: Reviewed RN Note. Allergies: Reviewed RN Note Cipro(*N/A), Reglan(*N/A) Social History: Reviewed RN Note. Family History: Reviewed RN Note Physical Examination: General: Alert HEENT: Patient has had a history of septal surgery, nasal septum is missing with what appears to be artificial septum posteriorly, no active bleeding at this time, clots noted in posterior pharynx, she did blow her nose and get all these clots out and there is no blood coming down posterior pharynx or from anterior nares.. Neck: No Meningismus and Supple Respiratory: No Resp Distress and Normal Breath Sounds Cardio-Vascular: No murmur and RRR Abdomen: Non-tender and Soft Back: No CVA tenderness Extremity: No edema and Normal Equal pulses Neurological: Alert, Oriented X3; Normal strength and sensation x4 extremities Skin: Warm and Dry Psychological: Mood/Affect Normal Medical Decision Making I did take out the packing has been placed. There is a large clot attached to this. She vigorously blew her nose and was able to get multiple large clots out but she is not actively bleeding. I did place another anterior posterior packing in inflated it with about 8 cc which she was able to tolerate comfortably. We did multiple rechecks she ambulated around she stayed here for a while and has had no further bleeding. I feel at this point she is stable for [facility] PATIENT NAME: TAMIA PANDA [address] MEDICAL REC #: [id number] [place] [address] EMERGENCY DEPARTMENT REPORT EMERGENCY DEPARTMENT PHYSICIAN discharge. She is given ENT referral. She is instructed return if it does start to bleed again patient and family are agreeable with this. She is discharged in stable condition. Additional Information: Discussed Results, Diagnosis and Follow-Up with Patient. Clinical Impression: 1. Epistaxis Disposition: Discharged . Condition: Fair MSE completed. I was the primary ED attending.. : Discharge Report Event Time: 02/23/2022 17:35 ===DISCHARGE REPORT=== : FlexChartData Event Time: 02/23/2022 16:20 : Discharge Report Event Time: 02/23/2022 17:35 Status: Draft Reasons to Return to the ER: You must return to the ER for any new, worsening or changing symptoms, or if you feel more ill or sick in any way. This is the most important thing to remember. Follow-up: The care you received in the ER was given on an emergency basis only, and it is often not possible to completely treat or diagnose a problem in a single ER visit. You must see your follow-up doctor for a recheck within a week unless you receive instructions with a different timeframe for follow-up. Please follow all your discharge instructions. [facility] (more content not included)... [facility] [Volum e fraction]on 02-23-2022 Hematocrit (Bld) [Volume fraction] 35.4 % 37-47 [facility] Work Phone: Laboratory - Chemistry and C hemistry - challengeon 02-23-2022 CO2 [Moles/Vol] 29.0 mmol/L 21.0-32.0 [facility] Work Phone: Urea nitrogen/Creatinine [Mass ratio] 14.4 mg/mg 10-20 [facility] Work Phone: Laboratory - Hematology and Cell countson 02-23-2022 Erythrocyte distribution width (RBC) [Entitic vol] 47.4 fL 35.1-43.9 [facility] Work Phone: Erythrocyte distribution width (RBC) [Ratio] 13.9 % 11.6-14.6 [facility] Work Phone: Immature granulocytes/100 WBC (Bld) 0.400 % 0.0-0.9 [facility] Work Phone: Comment on above: IG% - Immature Granu locytes (promyelocytes, myelocytes and metamyelocytes) > 1% indicates that a LEFT SHIFT is Present. MCH (RBC) [Entitic mass] 29.9 pg 27.0-32.0 [facility] Work Phone: Nucleated RBC/100 WBC (Bld) [Ratio] 0 % 0-5 [facility] Work Phone: MCHC Auto (RBC) [Mass/Vol]on 02-23-2022 MCHC (RBC) [Mass/Vol] 31.6 g/dL 32-36 [facility] Work Phone: No Panel Informationon 02-23 Estimated Creatinine Clearance Calc 31.06 ml/min [facility] Work Phone: Estimated GFR (MDRD) Amer 49 mL/min >60 [facility] Work Phone: Comment on above: GFR Calc Estimated GFR (MDRD) Non-Af Amer 40 mL/min >60 [facility] Work Phone: Comment on above: Non- GFR Calc Platelets bldon 02-23-2022 Platelets (Bld) [#/Vol] 219 10*3/uL 150-450 [facility] Work Phone: Serum or plasma calcium mariel urement (mass/volume)on 02-23-2022 Calcium [Mass/Vol] 8.7 mg/dL 8.5-10.1 [facility] Work Phone: Serum or plasma creatinine m easurement (mass/volume)on 02-23-2022 Creatinine [Mass/Vol] 1.39 mg/dL 0.55-1.02 [facility] Work Phone: Comment on above: The validity of the calculated GFR & GFRAA in patients over 70 years has not been determined. Clinical correlation is essential. Serum or plasma urea nitroge n measurement (mass/volume)on 02-23-2022 Urea nitrogen [Mass/Vol] 20 mg/dL 7-18 [facility] Work Phone: Thin prep Papanicolaou smear with manual screeningon 02-23-2022 Thin prep Papanicolaou smear with manual screening 6 5-15 [facility] Work Phone: CNOVon 12-18-2017 CNOV Office Visit (AGCARDWST) TAMIA PANDA ([id number]) 1955 FDa Time Provider Department12/18/17 3:00 PM DONAL ALBRIGHTWSCallie During your visit today, we recorded the following information about you: Pulse Blood pressure Weight Height 68/minute 104/70 98.5 kg 1.575 Mariah Albright MD 12/18/2017 3:51 PM SignedPERTINENT CARDIAC HISTORYASHD - PCI 2004Atrial fib - chronicHTNHLDMOSA - CPAPPE/DVT 1988 - a/c 6 mosCRFCHF - diastolicADHERENCE TO GUIDELINESACE-I or ARB for HF with prior LVEFANDlt;40 (NQF 0081) - N/AASA or Plavix for ASHD (NQF 0067) - metBeta sudhakar for ASHD with prior RI or prior LVEFANDlt;40 (NQF 0070) - N/ABeta sudhakar for HF with prior LVEFANDlt;40 (NQF 0083) - N/AACE-I or ARB for ASHD with DM or prior LVEFANDlt;40 (NQF 0066) - low BPStatin therapy for ASHD or FHL or DM - metBMI documented and plan if ANDgt;25 (NQF 0421) - lifestyle recommendation formTobacco use screening and referral (NQF 0028) - lifestyle recommendation formRecommendation for whole food, plant based diet - lifestyle recommendation formCLINICAL IMPRESSION/PLAN:Tamia Panda underwent stress testing today which was abnormal, as notedbelow.There is discordance between the 2 studies, although the presence of atrialfibrillation may have affected specificity. She is at least at intermediaterisk of perioperative cardiac complications. She is in chronic atrialfibrillation with good control of rate and no evidence of decompensated heartfailure.I recommend that her coronary anatomy be defined prior to elective surgery. Forrest arrange diagnostic angiography at [facility]. Hopefully she willhave disease which will allow us to proceed with surgery in a timely fashion.If she requires stenting, I would discuss with her the options and consequencesof bare-metal versus drug-eluting stent, as the latter would postpone surgeryfor at least a month or 2 longer.In the meantime, I have asked her to use nitroglycerin liberally for chestdiscomfort. It would be difficult for her to make the major lifestyle changeswhich would be necessary to substantially reduce her risk of coronary diseaseprogression. Her beta sudhakar and isosorbide could be increased for betterangina control.I will see her on a to be arranged basis.Written and verbal health teaching given to patient, patient verbalizesunderstanding and agrees with treatment plan.DIAGNOSIS FOR VISIT:Abnormal stress testHISTORY OF PRESENT ILLNESSTamia Panda returns for follow-up of her stress test, which was performedthis morning. She is scheduled for surgery tomorrow. She took her Eliquis thismorning.She continues to have intermittent tightness in the chest for which sheoccasionally uses nitroglycerin. I tablet is usually effective. She's had norecent pain that radiates down the left arm. No pain has awoken her from sleepin the last few weeks. She is unable to to exercise due to her orthopedicconsiderations and obesity.She denies syncope, palpitations, TIAs, amaurosis.ALLERGIES:YADY RGIESAllergen Reactions- Adhesive Tape (Adrienne* Intolerance Surgical tape leaves rashIrritates skin badly and blisters along with medical tape- Cats Other: See Comments Congested and itchy, difficulty breathing- Dogs Other: See Comments Congestion, sneezing, and difficulty breathing- Orphenadrine Unknown- Ciprofloxacin Other: See Comments Red, hot, itchy rash- Keflex [Cephalexin] Hives- Niacin Unknown- Niacin Preparations- Penicillin G- Penicillins Unknown- Reglan [Metoclopram* Other: See Comments Unable to sleep- Xanthines UnknownCURRENT OUTPATIENT MEDICATIONS:sucralfate (CARAFATE) 100 mg/mL suspension Take 10 mL by mouth four timesdaily.COMPOUNDED PRESCRIPTION OCD Titration for portable oxygen concentrator OxygenFlow Rate between 2-6 liters. To keep oxygen saturation at or above 92%.mupirocin (BACTROBAN) 2 % ointment Apply 1 application to affected area threetimes daily.promethazine (PHENERGAN) 25 mg tablet Take 1 tablet by mouth every 6 hours asneeded.insulin lispro (HUMALOG KWIKPEN INSULIN) 200 unit/mL (3 mL) injection Injectsubcutaneously 14 units with breakfast, 22 units with lunch, and 24 units withdinnerLYRICA 100 mg capsule TAKE 1 CAPSULE BY MOUTH THREE TIMES A DAYcapsaicin (ZOSTRIX-HP) 0.075 % topical cream Apply 1 application to affectedarea four times daily.ULTICARE PEN NEEDLE 31 gauge x 5/16ANDquot; ndle USE DIRECTED. TO INJECTINSULINSVITAMIN C 500 mg tablet TAKE 1 TABLET BY MOUTH DAILYFerrous Gluconate (FERGON) 324 mg (38 mg iron) tablet TAKE 1 TABLET BY MOUTHDAILY WITH BREAKFASTinsulin glargine (LANTUS SOLOSTAR) 100 unit/mL (3 mL) inpn Inject 60 unitssubcutaneously twice dailySTOOL SOFTENER 100 mg capsule TAKE 1 CAPSULE BY MOUTH DAILYGERI-KYLE 8.6 mg tab TAKE 1 TABLET BY MOUTH TWICE A DAYisosorbide mononitrate ER (IMDUR) 60 mg 24 hr tablet Take 1.5 tablets by mouthonce daily. In the morningatorvastatin (LIPITOR) 40 mg tablet TAKE 1 TABLET BY MOUTH DAILYdiltiazem CD (CARDIZEM CD, CARTIA XT) 180 mg 24 hr capsule TAKE 1 CAPSULE BYMOUTH EVERY MORNINGlevothyroxine (SYNTHROID) 100 mcg tablet TAKE 1 TABLET BY MOUTH EVERY MORNINGomeprazole (PRILOSEC) 20 mg capsule TAKE 1 CAPSULE BY MOUTH EVERY MORNINGELIQUIS 2.5 mg tab tab(s) TAKE 1 TABLET BY MOUTH TWICE A DAYnitroglycerin sublingual (NITROQUICK) 0.4 mg SL tablet DISSOLVE 1 TAB UNDER THETONGUE NEEDED FOR CHEST PAIN EVERY 5 MINUTES UP TO 3 TIMES. IF NO RELIEFCALL 911.metoprolol tartrate, short acting, (LOPRESSOR) 50 mg tablet Take 1 tablet bymouth twice daily.glucose 4 gram chewable tablet Take 4 tablets by mouth as needed for Low BloodSugar.OXYGEN, HOME THERAPY, Inhale 3 L/min as instructed as directed.fluticasone (FLONASE) 50 mcg/actuation nasal spray Use 2 Sprays in each nostrilonce daily.metFORMIN ER (GLUCOPHAGE XR) 500 mg 24 hr tablet Take 2 tablets by mouth twicedaily.DULoxetine (CYMBALTA) 60 mg capsule Take 1 capsule by mouth once daily.aspirin, enteric coated (ASPIRIN, ENTERIC COATED) 81 mg EC tablet Take 1 tabletby mouth every morning.furosemide (LASIX) 40 mg tablet Take 1 tablet by mouth twice daily.albuterol HFA (VENTOLIN HFA) 90 mcg/actuation inhaler Inhale 2 Puffs asinstructed every 4 hours as needed for Wheezing/Shortness of Breath.COMPOUNDED PRESCRIPTION Evaluation for diabetic shoes and inserts Dx: E11.65,Z79.4blood sugar diagnostic (ONETOUCH ULTRA TEST) test strip Use as directed tocheck blood sugar 4-5 times daily DX: E11.65 Insulin: yes DM: yeslancets (ONE TOUCH DELICA) 33 gauge misc Use as directed to check blood sugar4-5 times daily DX: E11. Insulin: yes DM: yesIncontinence Pad, Liner, Disp pads 1 Device as needed (urinary incontinence).Prevail incontinence pads. Dx: urinary incontinence. Size: smallBlood Pressure Cuff - Home Use BLOOD PRESSURE CUFF FOR HOME USE. DX: LABILEBLOOD PRESSUREBlood-Glucose Meter (ONETOUCH ULTRA2) monitoring kit UAD to test blood sugarAlcohol Swabs padm UAD to clean skin before testing blood sugar and injectinginsulins.PHYSIC AL EXAMINATION:VITAL SIGNS: BP 104/70 Pulse 68 Ht 5' 2ANDquot; (1.58m) Wt 217 lb 1.6 oz(98.5kg) BMI 39.70 kg/(m2).Chest: Clear to percussion and auscultation. Trachea is midline. Air entry isequal. Cardiac: Regular rhythm. S1 and S2 are normal. PMI is nondisplaced.There is a 1/6 systolic ejection murmur. Carotids are brisk without bruits.JVP is less than 10 cm. Abdomen: Soft and nontender. Obesity precludesadequate examination. There are no pulsatile masses or bruits. No liverenlargement. Bowel sounds are active. Extremities: 1 plus edema. Pulses arediminished but symmetrical.Stress test done at [facility] in 01/05 reportedly showed normal wallmotion at rest, but evidence of a ANDquot;moderate to large inferolateralscarANDquot ; with minimal anterior ischemia. 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 She did not undergo angiographyfollowing her abnormal stress test in 2016.Electronically Signed:Donal Albright [facility] 2017 3:30 [facility]: Nanda Oliveira [facility] Provider: DONAL ALBRIGHT [[id number]]Allergies As of Date: 12/18/2017 Noted Allergy ReactionADHESIVE TAPE (ROSINS) 04/04/2015 5 - Intolerance Comments: Surgical tape leaves rash Irritates skin badly and blisters along with medical tapeCATS 04/10/2016 14 - Other: See Comments Comments: Congested and itchy, difficulty breathingDOGS 04/10/2016 14 - Other: See Comments Comments: Congestion, sneezing, and difficulty breathingORPHENADRINE 04/10/2016 16 - UnknownCIPROFLOXACIN 12/11/2011 14 - Other: See Comments Comments: Red, hot, itchy rashKEFLEX (CEPHALEXIN) 07/10/2016 4 - HivesNIACIN 04/04/2015 16 - UnknownNIACIN PREPARATIONS 10/18/2004PENICILLIN G 10/18/2004PENICILLINS 04/04/2015 16 - UnknownREGLAN (METOCLOPRAMIDE HCL) 03/04/2017 14 - Other: See Comments Comments: Unable to sleepXANTHINES 10/18/2004 16 - UnknownDate Reviewed: 12/18/2017Reviewed by: Maureen Spring - Fully AssessedReason for Visit: Follow Up [171]Primary Visit Diagnosis:ASHD (arteriosclerotic heart disease) [I25.10] Other Visit Diagnosis:Abnormal stress test [R94.39]Order(s):LEFT HEART CATH,PERCUTANEOUS [[id number]] Order #: [id number]: 1Prescriptions as of 12/18/2017 Sig: SUCRALFATE 100 MG/ML [...] CAPSULE TAKE 1 CAPSULE BY MOUTH DAILY ROLAN-KYLE 8.6 MG TABLET TAKE 1 TABLET BY [...] ALCOHOL SWABS UAD to clean skin before test*Problem List As Of Date 12/18/2017 Noted Resolved SUBJECTIVE TINNITUS [H93.19] INVALID FOR* Obstructive sleep apnea [G47.33] INVALID FOR* Hyperlipidemia [E78.5] INVALID FOR* Coronary disease [I25.10] INVALID FOR* Diabetes mellitus, type II (HCC) [E11.9] INVALID FOR* Morbid obesity (HCC) [E66.01] Hypothyroidism [E03.9] Anxiety [F41.9] Sleep apnea [G47.30] 02/14/2017 Essential hypertension [I10] Coronary artery disease of [place] artery of [place]* AF (paroxysmal atrial fibrillation) ([facility]) [I48.* COPD (chronic obstructive pulmonary disease) (H* GERD without esophagitis [K21.9] Dysphagia [R13.10] Constipation [K59.00] DM type 2 (diabetes mellitus, type 2) ([facility]) [E1* 02/14/2017 Shortness of breath [R06.02] 02/14/2017 Arthritis [M19.90] More... CHF (congestive heart failure) ([facility]) [I50.9] BPPV (benign paroxysmal positional vertigo) [H8*INVALID FOR* RLS (restless legs syndrome) [G25.81] INVALID FOR* Iron deficiency concern: RE RLS [E61.1] INVALID FOR* Tubular adenoma [D36.9] INVALID FOR* Incontinence [R32] More... Gastroparesis [K31.84] INVALID FOR* Pre-op testing [Z01.818] INVALID FOR* More...Level of Service: SPORTS PE 35.00 (AG) [[id number]]Follow-up and Disposition History RecordedEncounter Number: [id number] Status:Closed by DONAL ALBRIGHT MD on 12/18/17 [facility] Wong 12-18-2017 [facility] Telephone (AGCARDWST) TAMIA PANDA ([id number]) 1955 FDate Time Provider Department12/18/17 DONAL ALBRIGHT AGCARDWST During your visit today, we recorded the following information about you:Dami Bravo, RN, RN 12/18/2017 4:52 PM SignedSpoke to Uma at [facility]. Patient will be set [facility] for heart [facility] next week.Demographics, OV notes, ECG, CXR, labs, and insurance cards faxed.Notified surgeon's office that cardiac clearance was not granted.Dami Bravo RN, RN 12/19/2017 10:20 AM SignedLeft ms for [facility] report, op note, DCsummary from stent placement in 2003.Faxed request for same records to [facility] @ [phone].[facility] states that they will not proceed with cath without theserecords.Dami Bravo RN, RN 12/22/2017 10:22 AM SignedReceived records [facility]. Cath report portion forwarded [facility] for cath. In folder for review, thank you.Allergies As of Date: 12/18/2017 Noted Allergy ReactionADHESIVE TAPE (ROSINS) 04/04/2015 5 - Intolerance Comments: Surgical tape leaves rash Irritates skin badly and blisters along with medical tapeCATS 04/10/2016 14 - Other: See Comments Comments: Congested and itchy, difficulty breathingDOGS 04/10/2016 14 - Other: See Comments Comments: Congestion, sneezing, and difficulty breathingORPHENADRINE 04/10/2016 16 - UnknownCIPROFLOXACIN 12/11/2011 14 - Other: See Comments Comments: Red, hot, itchy rashKEFLEX (CEPHALEXIN) 07/10/2016 4 - HivesNIACIN 04/04/2015 16 - UnknownNIACIN PREPARATIONS 10/18/2004PENICILLIN G 10/18/2004PENICILLINS 04/04/2015 16 - UnknownREGLAN (METOCLOPRAMIDE HCL) 03/04/2017 14 - Other: See Comments Comments: Unable to sleepXANTHINES 10/18/2004 16 - UnknownDate Reviewed: 12/18/2017Reviewed by: Maureen Spring - Fully AssessedReason for Visit: Patient Update [1234]Prescriptions as of 12/18/2017 Sig: SUCRALFATE 100 MG/ML [...] CAPSULE TAKE 1 CAPSULE BY MOUTH DAILY ROLAN-KYLE 8.6 MG TABLET TAKE 1 TABLET BY [...] ALCOHOL SWABS UAD to clean skin before test*Problem List As Of Date 12/18/2017 Noted Resolved SUBJECTIVE TINNITUS [H93.19] INVALID FOR* Obstructive sleep apnea [G47.33] INVALID FOR* Hyperlipidemia [E78.5] INVALID FOR* Coronary disease [I25.10] INVALID FOR* Diabetes mellitus, type II (HCC) [E11.9] INVALID FOR* Morbid obesity (HCC) [E66.01] Hypothyroidism [E03.9] Anxiety [F41.9] Sleep apnea [G47.30] 02/14/2017 Essential hypertension [I10] Coronary artery disease of [place] artery of [place]* AF (paroxysmal atrial fibrillation) ([facility]) [I48.* COPD (chronic obstructive pulmonary disease) (H* GERD without esophagitis [K21.9] Dysphagia [R13.10] Constipation [K59.00] DM type 2 (diabetes mellitus, type 2) ([facility]) [E1* 02/14/2017 Shortness of breath [R06.02] 02/14/2017 Arthritis [M19.90] More... CHF (congestive heart failure) ([facility]) [I50.9] BPPV (benign paroxysmal positional vertigo) [H8*INVALID FOR* RLS (restless legs syndrome) [G25.81] INVALID FOR* Iron deficiency concern: RE RLS [E61.1] INVALID FOR* Tubular adenoma [D36.9] INVALID FOR* Incontinence [R32] More... Gastroparesis [K31.84] INVALID FOR* Pre-op testing [Z01.818] INVALID FOR* More... Status:Closed by DAMI BRAVO on 12/18/17 [facility] PROGRESSon 12-18-2017 PROGRESS HNO ID: [id number]: Donal Callahan: (none)Author Type: PhysicianType: Progress NotesFiled: 12/18/2017 3:51 PMNote Text:PERTINENT CARDIAC HISTORYASHD - PCI 2004Atrial fib - chronicHTNHLDMOSA - CPAPPE/DVT 1988 - a/c 6 mosCRFCHF - diastolicADHERENCE TO GUIDELINESACE-I or ARB for HF with prior LVEF<40 (NQF 0081) - N/AASA or Plavix for ASHD (NQF 0067) - metBeta sudhakar for ASHD with prior RI or prior LVEF<40 (NQF 0070) - N/ABeta sudhakar for HF with prior LVEF<40 (NQF 0083) - N/AACE-I or ARB for ASHD with DM or prior LVEF<40 (NQF 0066) - low BPStatin therapy for ASHD or FHL or DM - metBMI documented and plan if >25 (NQF 0421) - lifestyle recommendation formTobacco use screening and referral (NQF 0028) - lifestyle recommendationformRecomm endation for whole food, plant based diet - lifestyle recommendationformCLINIC AL IMPRESSION/PLAN:Tamia Panda underwent stress testing today which was abnormal, as notedbelow.There is discordance between the 2 studies, although the presence ofatrial fibrillation may have affected specificity. She is at least atintermediate risk of perioperative cardiac complications. She is inchronic atrial fibrillation with good control of rate and no evidence ofdecompensated heart failure.I recommend that her coronary anatomy be defined prior to electivesurgery. We will arrange diagnostic [facility].Hopefully she will have disease which will allow us to proceed withsurgery in a timely fashion. If she requires stenting, I would discusswith her the options and consequences of bare-metal versus drug-elutingstent, as the latter would postpone surgery for at least a month or 2longer.In the meantime, I have asked her to use nitroglycerin liberally for chestdiscomfort. It would be difficult for her to make the major lifestylechanges which would be necessary to substantially reduce her risk ofcoronary disease progression. Her beta sudhakar and isosorbide could beincreased for better angina control.I will see her on a to be arranged basis.Written and verbal health teaching given to patient, patient verbalizesunderstanding and agrees with treatment plan.DIAGNOSIS FOR VISIT:Abnormal stress testHISTORY OF PRESENT ILLNESSTamia Panda returns for follow-up of her stress test, which wasperformed this morning. She is scheduled for surgery tomorrow. She tookher Eliquis this morning.She continues to have intermittent tightness in the chest for which sheoccasionally uses nitroglycerin. I tablet is usually effective. She's hadno recent pain that radiates down the left arm. No pain has awoken herfrom sleep in the last few weeks. She is unable to to exercise due to herorthopedic considerations and obesity.She denies syncope, palpitations, TIAs, amaurosis.ALLERGIES:YADY RGIESAllergen Reactions- Adhesive Tape (Adrienne* Intolerance Surgical tape leaves rashIrritates skin badly and blisters along with medical tape- Cats Other: See Comments Congested and itchy, difficulty breathing- Dogs Other: See Comments Congestion, sneezing, and difficulty breathing- Orphenadrine Unknown- Ciprofloxacin Other: See Comments Red, hot, itchy rash- Keflex [Cephalexin] Hives- Niacin Unknown- Niacin Preparations- Penicillin G- Penicillins Unknown- Reglan [Metoclopram* Other: See Comments Unable to sleep- Xanthines UnknownCURRENT OUTPATIENT MEDICATIONS:sucralfate (CARAFATE) 100 mg/mL suspension Take 10 mL by mouth four timesdaily.COMPOUNDED PRESCRIPTION OCD Titration for portable oxygen concentratorOxygen Flow Rate between 2-6 liters. To keep oxygen saturation at orabove 92%.mupirocin (BACTROBAN) 2 % ointment Apply 1 application to affected areathree times daily.promethazine (PHENERGAN) 25 mg tablet Take 1 tablet by mouth every 6 hoursas needed.insulin lispro (HUMALOG KWIKPEN INSULIN) 200 unit/mL (3 mL) injectionInject subcutaneously 14 units with breakfast, 22 units with lunch, and 24units with dinnerLYRICA 100 mg capsule TAKE 1 CAPSULE BY MOUTH THREE TIMES A DAYcapsaicin (ZOSTRIX-HP) 0.075 % topical cream Apply 1 application toaffected area four times daily.ULTICARE PEN NEEDLE 31 gauge x 5/16 ndle USE DIRECTED. TO INJECTINSULINSVITAMIN C 500 mg tablet TAKE 1 TABLET BY MOUTH DAILYFerrous Gluconate (FERGON) 324 mg (38 mg iron) tablet TAKE 1 TABLET BYMOUTH DAILY WITH BREAKFASTinsulin glargine (LANTUS SOLOSTAR) 100 unit/mL (3 mL) inpn Inject 60 unitssubcutaneously twice dailySTOOL SOFTENER 100 mg capsule TAKE 1 CAPSULE BY MOUTH DAILYGERI-KYLE 8.6 mg tab TAKE 1 TABLET BY MOUTH TWICE A DAYisosorbide mononitrate ER (IMDUR) 60 mg 24 hr tablet Take 1.5 tablets bymouth once daily. In the morningatorvastatin (LIPITOR) 40 mg tablet TAKE 1 TABLET BY MOUTH DAILYdiltiazem CD (CARDIZEM CD, CARTIA XT) 180 mg 24 hr capsule TAKE 1 CAPSULEBY MOUTH EVERY MORNINGlevothyroxine (SYNTHROID) 100 mcg tablet TAKE 1 TABLET BY MOUTH EVERYMORNINGomeprazole (PRILOSEC) 20 mg capsule TAKE 1 CAPSULE BY MOUTH EVERY MORNINGELIQUIS 2.5 mg tab tab(s) TAKE 1 TABLET BY MOUTH TWICE A DAYnitroglycerin sublingual (NITROQUICK) 0.4 mg SL tablet DISSOLVE 1 TABUNDER THE TONGUE NEEDED FOR CHEST PAIN EVERY 5 MINUTES UP TO 3 TIMES.IF NO RELIEF CALL 911.metoprolol tartrate, short acting, (LOPRESSOR) 50 mg tablet Take 1 tabletby mouth twice daily.glucose 4 gram chewable tablet Take 4 tablets by mouth as needed for LowBlood Sugar.OXYGEN, HOME THERAPY, Inhale 3 L/min as instructed as directed.fluticasone (FLONASE) 50 mcg/actuation nasal spray Use 2 Sprays in eachnostril once daily.metFORMIN ER (GLUCOPHAGE XR) 500 mg 24 hr tablet Take 2 tablets by mouthtwice daily.DULoxetine (CYMBALTA) 60 mg capsule Take 1 capsule by mouth once daily.aspirin, enteric coated (ASPIRIN, ENTERIC COATED) 81 mg EC tablet Take 1tablet by mouth every morning.furosemide (LASIX) 40 mg tablet Take 1 tablet by mouth twice daily.albuterol HFA (VENTOLIN HFA) 90 mcg/actuation inhaler Inhale 2 Puffs asinstructed every 4 hours as needed for Wheezing/Shortness of Breath.COMPOUNDED PRESCRIPTION Evaluation for diabetic shoes and inserts Dx:E11.65, Z79.4blood sugar diagnostic (ONETOUCH ULTRA TEST) test strip Use as directed tocheck blood sugar 4-5 times daily DX: E11.65 Insulin: yes DM: yeslancets (ONE TOUCH DELICA) 33 gauge misc Use as directed to check bloodsugar 4-5 times daily DX: E11.65 Insulin: yes DM: yesIncontinence Pad, Liner, Disp pads 1 Device as needed (urinaryincontinence). Prevail incontinence pads. Dx: urinary incontinence. Size:smallBlood Pressure Cuff - Home Use BLOOD PRESSURE CUFF FOR HOME USE. DX:LABILE BLOOD PRESSUREBlood-Glucose Meter (ONETOUCH ULTRA2) monitoring kit UAD to test bloodsugarAlcohol Swabs padm UAD to clean skin before testing blood sugar andinjecting insulins.PHYSICAL EXAMINATION:VITAL SIGNS: BP 104/70 Pulse 68 Ht 5' 2 (1.58m) Wt 217 lb 1.6 oz(98.5kg) BMI 39.70 kg/(m2).Chest: Clear to percussion and auscultation. Trachea is midline. Airentry is equal. Cardiac: Regular rhythm. S1 and S2 are normal. PMI isnondisplaced. There is a 1/6 systolic ejection murmur. Carotids arebrisk without bruits. JVP is less than 10 cm. Abdomen: Soft andnontender. Obesity precludes adequate examination. There are no pulsatilemasses or bruits. No liver enlargement. Bowel sounds are active.Extremities: 1 plus edema. Pulses are diminished but symmetrical.Stress test done at [facility] in 01/05 reportedly showed normal wallmotion at rest, but evidence of a moderate to large inferolateral scarwith minimal anterior ischemia. This was a pharmacologic test, as wastoday's study, which showed evidence of a small basilar lateral fixeddefect with moderate lateral ischemia. She did not undergo angiographyfollowing her abnormal stress test in 2015.Electronically Signed:Donal Albright [facility] 2017 3:30 [facility] Nanda Oliveira MD [facility] CNOVon 12-16-2017 CNOV Office Visit (AGCARDWST) TAMIA PANDA ([id number]) 1955 FDate Time Provider Department12/16/17 10:30 AM DONAL ALBRIGHT During your visit today, we recorded the following information about you: Pulse Blood pressure Weight 68/minute 98/60 99.7 kgDonal Albright MD 12/18/2017 9:11 AM SignedPERTINENT CARDIAC HISTORYASHD - PCI 2004Atrial fib - chronicHTNHLDMOSA - CPAPPE/DVT 1987 - a/c 6 mosCRFCHF - diastolicADHERENCE TO GUIDELINESACE-I or ARB for HF with prior LVEFANDlt;40 (NQF 0081) - N/AASA or Plavix for ASHD (NQF 0067) - metBeta sudhakar for ASHD with prior RI or prior LVEFANDlt;40 (NQF 0070) - N/ABeta sudhakar for HF with prior LVEFANDlt;40 (NQF 0083) - N/AACE-I or ARB for ASHD with DM or prior LVEFANDlt;40 (NQF 0066) - low BPStatin therapy for ASHD or FHL or DM - metBMI documented and plan if ANDgt;25 (NQF 0421) - lifestyle recommendation formTobacco use screening and referral (NQF 0028) - lifestyle recommendation formRecommendation for whole food, plant based diet - lifestyle recommendation formCLINICAL IMPRESSION/PLAN:Tamia Panda has chronic atrial fibrillation. Her rate is adequatelycontrolled. He has a previous history of DVT with pulmonary embolism, whichincreases her perioperative risk of the same. I recommend holding her Eliquisonly the day prior to surgery and resuming as soon as possible afterwards.Early mobilization is very important.She has ongoing chest discomfort which is occasionally occurring at rest. Shehas not been exercising to test her exercise tolerance and does not routinelyexceed a met level of 4 during her daily activities. I recommended that shehave a Lexiscan nuclear stress test prior to surgery for better riskassessment. This would be recommended regardless of the issue of surgery.She had some crackles in her lungs during exam, which cleared with deeperinspiration. This is likely related to atelectasis. There is no other evidencefor volume overload and her heart failure appears to be well compensated.Stress test will be performed in the near future, hopefully in the time frameto allow her to proceed with surgery as scheduled.Thank you for asking me to see and make recommendations on Tamia Panda.This report is available to you in the shared medical record.Written and verbal health teaching given to patient, patient verbalizesunderstanding and agrees with treatment plan.DIAGNOSIS FOR VISIT:Preoperative cardiac risk assessmentASHDHISTORY OF PRESENT ILLNESSTamia Panda is a 62-year-old woman who is seen in consultation at [facility] of Dr. Wilson, in the [facility]. She will beundergoing pyloroplasty for gastroparesis. She is a previous patient of .She has known ischemic heart disease. She underwent percutaneous interventionin 2003. She has chronic atrial fibrillation. Additional cardiac issues includediastolic heart failure, hypertension and hyperlipidemia. She has had aprevious DVT with pulmonary embolism and was on anticoagulation for 6 months.She reports that she has occasional chest discomfort for which she takesnitroglycerin. There was one episode of more severe chest discomfort which wasnocturnal and required 2 nitroglycerin. This occurred 2 months ago.She reports chronic peripheral edema. She's had no orthopnea but has exerciserelated dyspnea with moderate activities. No TIAs, amaurosis, claudication,palpitation s, syncope or near-syncope.Her most recent stress test was in 2016. She has not been getting exerciseoutside the house.ALLERGIES:ALLERGIE SAllergen Reactions- Adhesive Tape (Adrienne* Intolerance Surgical tape leaves rashIrritates skin badly and blisters along with medical tape- Cats Other: See Comments Congested and itchy, difficulty breathing- Dogs Other: See Comments Congestion, sneezing, and difficulty breathing- Orphenadrine Unknown- Ciprofloxacin Other: See Comments Red, hot, itchy rash- Keflex [Cephalexin] Hives- Niacin Unknown- Niacin Preparations- Penicillin G- Penicillins Unknown- Reglan [Metoclopram* Other: See Comments Unable to sleep- Xanthines UnknownCURRENT OUTPATIENT MEDICATIONS:regadenoson (LEXISCAN) 0.4 mg/5 mL syrg Inject 5 mL intravenously one time onlyfor 1 dose. Give IV push over 10 seconds and follow with 5 ml of normal salinesucralfate (CARAFATE) 100 mg/mL suspension Take 10 mL by mouth four timesdaily.COMPOUNDED PRESCRIPTION OCD Titration for portable oxygen concentrator OxygenFlow Rate between 2-6 liters. To keep oxygen saturation at or above 92%.mupirocin (BACTROBAN) 2 % ointment Apply 1 application to affected area threetimes daily.promethazine (PHENERGAN) 25 mg tablet Take 1 tablet by mouth every 6 hours asneeded.insulin lispro (HUMALOG KWIKPEN INSULIN) 200 unit/mL (3 mL) injection Injectsubcutaneously 14 units with breakfast, 22 units with lunch, and 24 units withdinnerLYRICA 100 mg capsule TAKE 1 CAPSULE BY MOUTH THREE TIMES A DAYcapsaicin (ZOSTRIX-HP) 0.075 % topical cream Apply 1 application to affectedarea four times daily.ULTICARE PEN NEEDLE 31 gauge x 5/16ANDquot; ndle USE DIRECTED. TO INJECTINSULINSVITAMIN C 500 mg tablet TAKE 1 TABLET BY MOUTH DAILYFerrous Gluconate (FERGON) 324 mg (38 mg iron) tablet TAKE 1 TABLET BY MOUTHDAILY WITH BREAKFASTinsulin glargine (LANTUS SOLOSTAR) 100 unit/mL (3 mL) inpn Inject 60 unitssubcutaneously twice dailySTOOL SOFTENER 100 mg capsule TAKE 1 CAPSULE BY MOUTH DAILYGERI-KYLE 8.6 mg tab TAKE 1 TABLET BY MOUTH TWICE A DAYisosorbide mononitrate ER (IMDUR) 60 mg 24 hr tablet Take 1.5 tablets by mouthonce daily. In the morningatorvastatin (LIPITOR) 40 mg tablet TAKE 1 TABLET BY MOUTH DAILYdiltiazem CD (CARDIZEM CD, CARTIA XT) 180 mg 24 hr capsule TAKE 1 CAPSULE BYMOUTH EVERY MORNINGlevothyroxine (SYNTHROID) 100 mcg tablet TAKE 1 TABLET BY MOUTH EVERY MORNINGomeprazole (PRILOSEC) 20 mg capsule TAKE 1 CAPSULE BY MOUTH EVERY MORNINGELIQUIS 2.5 mg tab tab(s) TAKE 1 TABLET BY MOUTH TWICE A DAYnitroglycerin sublingual (NITROQUICK) 0.4 mg SL tablet DISSOLVE 1 TAB UNDER THETONGUE NEEDED FOR CHEST PAIN EVERY 5 MINUTES UP TO 3 TIMES. IF NO RELIEFCALL 911.metoprolol tartrate, short acting, (LOPRESSOR) 50 mg tablet Take 1 tablet bymouth twice daily.glucose 4 gram chewable tablet Take 4 tablets by mouth as needed for Low BloodSugar.OXYGEN, HOME THERAPY, Inhale 3 L/min as instructed as directed.fluticasone (FLONASE) 50 mcg/actuation nasal spray Use 2 Sprays in each nostrilonce daily.metFORMIN ER (GLUCOPHAGE XR) 500 mg 24 hr tablet Take 2 tablets by mouth twicedaily.DULoxetine (CYMBALTA) 60 mg capsule Take 1 capsule by mouth once daily.aspirin, enteric coated (ASPIRIN, ENTERIC COATED) 81 mg EC tablet Take 1 tabletby mouth every morning.furosemide (LASIX) 40 mg tablet Take 1 tablet by mouth twice daily.albuterol HFA (VENTOLIN HFA) 90 mcg/actuation inhaler Inhale 2 Puffs asinstructed every 4 hours as needed for Wheezing/Shortness of Breath.COMPOUNDED PRESCRIPTION Evaluation for diabetic shoes and inserts Dx: E11.65,Z79.4blood sugar diagnostic (ONETOUCH ULTRA TEST) test strip Use as directed tocheck blood sugar 4-5 times daily DX: E11.65 Insulin: yes DM: yeslancets (ONE TOUCH DELICA) 33 gauge misc Use as directed to check blood sugar4-5 times daily DX: E11.65 Insulin: yes DM: yesIncontinence Pad, Liner, Disp pads 1 Device as needed (urinary incontinence).Prevail incontinence pads. Dx: urinary incontinence. Size: smallBlood Pressure Cuff - Home Use BLOOD PRESSURE CUFF FOR HOME USE. DX: LABILEBLOOD PRESSUREBlood-Glucose Meter (ONETOUCH ULTRA2) monitoring kit UAD to test blood sugarAlcohol Swabs padm UAD to clean skin before testing blood sugar and injectinginsulins.PAST MEDICAL HISTORYDiagnosis Date- Acute chronic obstructive pulmonary disease with respiratory failure ([facility])- AF (paroxysmal atrial fibrillation) ([facility])- Anxiety- Arthritis Seeing Dr Elliott- Cervical cancer ([facility]) hysterectomy- CHF (congestive heart failure) ([facility])- Chronic back pain Seeing Dr. Wallace- Constipation- COPD (chronic obstructive pulmonary disease) ([facility])- Coronary atherosclerosis of [place] coronary artery Previously seeing Dr. Sosa- DDD (degenerative disc disease), lumbar- DM type 2 (diabetes mellitus, type 2) ([facility]) Seeing Dr. Foley for podiatry- DVT (deep venous thrombosis) ([facility]) Post op INA, BSO.- Dysphagia Seeing Dr. Beaulieu- Emphysema lung ([facility])- Essential hypertension- Functional dyspepsia- Gastroparesis 2017 mild- GERD without esophagitis- Headache- History of colon polyps 11/28/2016- Hyperlipidemia- Hypothyroidism- Incontinence Seeing Dr. Chapman- Morbid obesity ([facility])- Muscle weakness- Nausea- PARESH on CPAP [facility], no longer using as of 10/2017, was not compliant- PE (pulmonary thromboembolism) ([facility]) Post op INA/BSO.- Pneumonia- RLS (restless legs syndrome)- Shortness of breath- Sleep apnea using oxygen currently, not on CPAP- Unsteadiness on feet- WheezingPAST SURGICAL HISTORYProcedure Laterality Date- CHOLECYSTECTOMY- COLONOS W/REM POLYP SNARE 11/28/2016 Repeat 2019- COLONOSCOPY Has had multiple in the past with polyps, cannot remember dates- EGD W/O BRSH SPECIMEN W/BX 11/28/2016- HERNIA REPAIR HX multiple- KNEE SURGERY HX Left x3 for torn cartilage- NASAL SURGERY PROCEDURE sinus- TOTAL ABDOM HYSTERECTOMY 1988 Cervical cancer- TUBAL LIGATION HX- WRIST SURGERY HX Right ganglion cyst removal [id number] HISTORYProblem Relation Age of Onset- Coronary Artery Disease Mother- Coronary Artery Disease Father- Asthma Brother- Coronary Artery Disease Brother- Diabetes Sister- Hypertension Sister- Diabetes Sister- Heart Sister- Allergies Sister- Asthma Sister- Allergies Sister- Emphysema Sister ANDquot;Early stagesANDquot;- COPD Paternal UncleSocial History Marital status: Spouse name: Years of education: Number of children:Occupational HistoryOccupation Employer [employer], [employer].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 2nd spouse smoked in home. Alcohol use: No Drug use: No Sexual activity: NoSocial History Narrative 1 year in current home. No basement, 1 parakeet. Room A/C. Electric baseboardheat.REVIEW OF SYSTEMS: General: No chills, fever, weight loss, night sweats.SHEENT: No change in vision or auditory acuity. Respiratory: No productivecough. History of COPD and asthma. Cardiac: As noted above. GI: No melena.Chronic occurred and gastroparesis : No dysuria. Musculoskeletal: Chronicmyalgias. Neurologic: No strokes. Psychiatric: No depression. Endocrine:Positive for diabetes. Hematologic: No anemia.PHYSICAL EXAMINATION: S/he is alert and in no distressVITAL SIGNS: BP 98/60 Pulse 68 Wt 219 lb 11.2 oz (99.7kg)SHEENT: Skin is warm and dry. Pupils are round and reactive. No xanthelasmasappreciated. Pharynx is benign. There is no oral cyanosis. Neck: supple. Noadenopathy or thyroid enlargement. Chest: There are a few basilar rales whichclear with cough. Trachea is midline. Air entry is equal. There is no chestwall tenderness. Cardiac: 1/6 systolic ejection murmur rhythm. S1 and S2 arenormal. PMI is nondisplaced. There are no murmurs, rubs or gallops. No clickis heard. Carotids are brisk without bruits. JVP is less than 10 cm.Abdomen: Soft and nontender. Obesity precludes adequate examination. There areno pulsatile masses or bruits. No liver enlargement. Bowel sounds are active. : Deferred. Extremities: Trace edema. Pulses are diminished butsymmetrical. No clubbing or cyanosis. No femoral bruits. Neurologic: Grosslynormal motor and sensory. S/he is alert and oriented x4. Musculoskeletal: Nojoint deformities.Recent labs were reviewed. CBC is within normal limits. There is mild renalinsufficiency. LDL was 76.EKG shows atrial fibrillation with controlled ventricular response. There arediffuse repolarization changes. No significant change is noted.Prior stress test showed a moderate to large inferolateral scar with minimalanterior ischemia.Echocardiogram done in 2013 reported normal LV function. There is nosignificant valvular disease.Previous records from Dr. Baez were reviewed. Her atrial fibrillation ischronic and she's been maintained on Eliquis and rate control. She has hadintermittent chest discomfort and has been treated with long-acting nitrates.Electronically Signed:Donal Albright [facility] 2017 11:12 [facility]: Nahed Floyd MD 12/16/2017 11:13 AM SignedLIFESTYLE CHANGEA healthy lifestyle is the most important component of your overall treatmentplan. Please give serious thought to the following areas and commit to makinglong term changes.EAT A WHOLE FOOD, PLANT BASED DIETThe nutrition your body gets is more important than the medicine you take.What matters most is the overall way you eat. We encourage you to minimize theuse of animal products (which include dairy and all meats except fatty fish)and use whole, unprocessed plant foods to provide your protein, vitamins andother nutrients. We have a lot of information to share with you on this topic. We also hold Shared Medical Appointments, where you can come visit with in the company of other patients and spend over an hour talking aboutthe challenges of changing the way you eat. This is not a ANDquot;dietANDquot;.It is a way of life that you will keep with you.EXERCISE REGULARLYIt is not important to spend hours in the gym, lifting weights and perspiringheavily. A total of 2-3 hours per week of aerobic (causing you to bemoderately short of breath) exercise is sufficient to improve your health.Talk to us before you begin a new exercise program, if you have heart diseaseor experience shortness of breath or chest pain.REDUCE STRESSChronic emotional and physical stress leads to disease. Ways of reducingstress include meditation, visualization, prayer, yoga and other forms ofrelaxation therapy. Consistency is the meza. Find a technique that works foryou and do it every day.CULTIVATE RELATIONSHIPSLoneliness and isolation have a major negative impact on health. Seek outothers who can love, care for and nurture you. Avoid hurtful relationships.MAINTAIN IDEAL BODY WEIGHTThe best way to do this is to do all the things above. Our bodies naturallyfind the right weight if we keep moving and feed ourselves the right food. Ifyour BMI is greater than 25, we strongly recommend a referral to a weightmanagement program. Please speak to us or your family physician aboutavailable programs.AVOID NICOTINE IN ALL FORMSThis includes all tobacco products, whether chewed, smoked, vaped, or rubbed onthe skin. Smoking cessation programs, which can make use of tobaccosubstitutes, medications to suppress cravings and behavior management, areavailable. Please contact your family physician about programs in your area.Referring Provider: NANDA OLIVEIRA) [[id number]]Allergies As of Date: 12/16/2017 Noted Allergy ReactionADHESIVE TAPE (ROSINS) 04/04/2015 5 - Intolerance Comments: Surgical tape leaves rash Irritates skin badly and blisters along with medical tapeCATS 04/10/2016 14 - Other: See Comments Comments: Congested and itchy, difficulty breathingDOGS 04/10/2016 14 - Other: See Comments Comments: Congestion, sneezing, and difficulty breathingORPHENADRINE 04/10/2016 16 - UnknownCIPROFLOXACIN 12/11/2011 14 - Other: See Comments Comments: Red, hot, itchy rashKEFLEX (CEPHALEXIN) 07/10/2016 4 - HivesNIACIN 04/04/2015 16 - UnknownNIACIN PREPARATIONS 10/18/2004PENICILLIN G 10/18/2004PENICILLINS 04/04/2015 16 - UnknownREGLAN (METOCLOPRAMIDE HCL) 03/04/2017 14 - Other: See Comments Comments: Unable to sleepXANTHINES 10/18/2004 16 - UnknownDate Reviewed: 12/16/2017Reviewed by: Florence (Landing Support Specialist) Halina - Fully AssessedReason for Visit: Consult [502]Primary Visit Diagnosis:Preop cardiovascular exam [Z01.810] Other Visit Diagnoses:ASHD (arteriosclerotic heart disease) [I25.10] Hypertension, essential [I10]Order(s):NM CARDIAC PERF STRESS/PHARM [[id number]] Order #: [id number] FUTURE [] regadenoson (LEXISCAN) 0.4 mg/5 mL syrgInject 5 mL intravenously one time only for 1 dose. Give IV push over 10 seconds and follow with 5 ml of normal salineDisp: 5 mLRfl: 0 IV START - SPECIFY [[id number]] Order #: [id number]: 1 IV DISCONTINUE [[id number]] Order #: [id number]: 1Prescriptions as of 12/16/2017 Sig: REGADENOSON 0.4 MG/5 [...] CAPSULE TAKE 1 CAPSULE BY MOUTH DAILY ROLAN-KYLE 8.6 MG TABLET TAKE 1 TABLET BY [...] ALCOHOL SWABS UAD to clean skin before test*Problem List As Of Date 12/16/2017 Noted Resolved SUBJECTIVE TINNITUS [H93.19] INVALID FOR* Obstructive sleep apnea [G47.33] INVALID FOR* Hyperlipidemia [E78.5] INVALID FOR* Coronary disease [I25.10] INVALID FOR* Diabetes mellitus, type II (HCC) [E11.9] INVALID FOR* Morbid obesity (HCC) [E66.01] Hypothyroidism [E03.9] Anxiety [F41.9] Sleep apnea [G47.30] 02/14/2017 Essential hypertension [I10] Coronary artery disease of [place] artery of [place]* AF (paroxysmal atrial fibrillation) ([facility]) [I48.* COPD (chronic obstructive pulmonary disease) (H* GERD without esophagitis [K21.9] Dysphagia [R13.10] Constipation [K59.00] DM type 2 (diabetes mellitus, type 2) ([facility]) [E1* 02/14/2017 Shortness of breath [R06.02] 02/14/2017 Arthritis [M19.90] More... CHF (congestive heart failure) ([facility]) [I50.9] BPPV (benign paroxysmal positional vertigo) [H8*INVALID [...] the following areas and commit to making oil heaterman changes. EAT A WHOLE FOOD, PLANT BASED [...] your family physician about programs in your area.Prescriptions ordered this encounter Disp Refills Start End REGADENOSON 0.4 MG/5 ML INTRAVENOUS * 5 mL 0 12/16/2017 12/16/2017 Class: In Office Route: INTRAVENOUS Sig: Inject 5 mL intravenously one time only for 1 dose. Give IV push over 10 seconds and follow with 5 ml of normal salineFollow-up and Disposition History RecordedEncounter Number: [id number] Status:Closed by DONAL ALBRIGHT MD on 12/18/17 Normal [facility] PROGRESSon 12-16-2017 PROGRESS HNO ID: [id number]: Donal Callahan: (none)Author Type: PhysicianType: Progress NotesFiled: 12/18/2017 9:11 AMNote Text:PERTINENT CARDIAC HISTORYASHD - PCI 2004Atrial fib - chronicHTNHLDMOSA - CPAPPE/DVT 1988 - a/c 6 mosCRFCHF - diastolicADHERENCE TO GUIDELINESACE-I or ARB for HF with prior LVEF<40 (NQF 0081) - N/AASA or Plavix for ASHD (NQF 0067) - metBeta sudhakar for ASHD with prior RI or prior LVEF<40 (NQF 0070) - N/ABeta sudhakar for HF with prior LVEF<40 (NQF 0083) - N/AACE-I or ARB for ASHD with DM or prior LVEF<40 (NQF 0066) - low BPStatin therapy for ASHD or FHL or DM - metBMI documented and plan if >25 (NQF 0421) - lifestyle recommendation formTobacco use screening and referral (NQF 0028) - lifestyle recommendationformRecomm endation for whole food, plant based diet - lifestyle recommendationformCLINIC AL IMPRESSION/PLAN:Tamia Panda has chronic atrial fibrillation. Her rate is adequatelycontrolled. He has a previous history of DVT with pulmonary embolism,which increases her perioperative risk of the same. I recommend holdingher Eliquis only the day prior to surgery and resuming as soon as possibleafterwards. Early mobilization is very important.She has ongoing chest discomfort which is occasionally occurring at rest.She has not been exercising to test her exercise tolerance and does notroutinely exceed a met level of 4 during her daily activities. Irecommended that she have a Lexiscan nuclear stress test prior to surgeryfor better risk assessment. This would be recommended regardless of theissue of surgery.She had some crackles in her lungs during exam, which cleared with deeperinspiration. This is likely related to atelectasis. There is no otherevidence for volume overload and her heart failure appears to be wellcompensated.Stress test will be performed in the near future, hopefully in the timeframe to allow her to proceed with surgery as scheduled.Thank you for asking me to see and make recommendations on Tamia Panda. This report is available to you in the shared medical record.Written and verbal health teaching given to patient, patient verbalizesunderstanding and agrees with treatment plan.DIAGNOSIS FOR VISIT:Preoperative cardiac risk assessmentASHDHISTORY OF PRESENT ILLNESSTamia Panda is a 62-year-old woman who is seen in consultation at [facility] of Dr. Wilson, in the [facility]. She will beundergoing pyloroplasty for gastroparesis. She is a previous patient ofDr. Baez.She has known ischemic heart disease. She underwent percutaneousintervention in 2003. She has chronic atrial fibrillation. Additionalcardiac issues include diastolic heart failure, hypertension andhyperlipidemia. She has had a previous DVT with pulmonary embolism and wason anticoagulation for 6 months.She reports that she has occasional chest discomfort for which she takesnitroglycerin. There was one episode of more severe chest discomfort whichwas nocturnal and required 2 nitroglycerin. This occurred 2 months ago.She reports chronic peripheral edema. She's had no orthopnea but hasexercise related dyspnea with moderate activities. No TIAs, amaurosis,claudication, palpitations, syncope or near-syncope.Her most recent stress test was in 2016. She has not been getting exerciseoutside the house.ALLERGIES:ALLERGIE SAller Reactions- Adhesive Tape (Adrienne* Intolerance Surgical tape leaves rashIrritates skin badly and blisters along with medical tape- Cats Other: See Comments Congested and itchy, difficulty breathing- Dogs Other: See Comments Congestion, sneezing, and difficulty breathing- Orphenadrine Unknown- Ciprofloxacin Other: See Comments Red, hot, itchy rash- Keflex [Cephalexin] Hives- Niacin Unknown- Niacin Preparations- Penicillin G- Penicillins Unknown- Reglan [Metoclopram* Other: See Comments Unable to sleep- Xanthines UnknownCURRENT OUTPATIENT MEDICATIONS:regadenoson (LEXISCAN) 0.4 mg/5 mL syrg Inject 5 mL intravenously one timeonly for 1 dose. Give IV push over 10 seconds and follow with 5 ml ofnormal salinesucralfate (CARAFATE) 100 mg/mL suspension Take 10 mL by mouth four timesdaily.COMPOUNDED PRESCRIPTION OCD Titration for portable oxygen concentratorOxygen Flow Rate between 2-6 liters. To keep oxygen saturation at orabove 92%.mupirocin (BACTROBAN) 2 % ointment Apply 1 application to affected areathree times daily.promethazine (PHENERGAN) 25 mg tablet Take 1 tablet by mouth every 6 hoursas needed.insulin lispro (HUMALOG KWIKPEN INSULIN) 200 unit/mL (3 mL) injectionInject subcutaneously 14 units with breakfast, 22 units with lunch, and 24units with dinnerLYRICA 100 mg capsule TAKE 1 CAPSULE BY MOUTH THREE TIMES A DAYcapsaicin (ZOSTRIX-HP) 0.075 % topical cream Apply 1 application toaffected area four times daily.ULTICARE PEN NEEDLE 31 gauge x 16 ndle USE DIRECTED. TO INJECTINSULINSVITAMIN C 500 mg tablet TAKE 1 TABLET BY MOUTH DAILYFerrous Gluconate (FERGON) 324 mg (38 mg iron) tablet TAKE 1 TABLET BYMOUTH DAILY WITH BREAKFASTinsulin glargine (LANTUS SOLOSTAR) 100 unit/mL (3 mL) inpn Inject 60 unitssubcutaneously twice dailySTOOL SOFTENER 100 mg capsule TAKE 1 CAPSULE BY MOUTH DAILYGERI-KYLE 8.6 mg tab TAKE 1 TABLET BY MOUTH TWICE A DAYisosorbide mononitrate ER (IMDUR) 60 mg 24 hr tablet Take 1.5 tablets bymouth once daily. In the morningatorvastatin (LIPITOR) 40 mg tablet TAKE 1 TABLET BY MOUTH DAILYdiltiazem CD (CARDIZEM CD, CARTIA XT) 180 mg 24 hr capsule TAKE 1 CAPSULEBY MOUTH EVERY MORNINGlevothyroxine (SYNTHROID) 100 mcg tablet TAKE 1 TABLET BY MOUTH EVERYMORNINGomeprazole (PRILOSEC) 20 mg capsule TAKE 1 CAPSULE BY MOUTH EVERY MORNINGELIQUIS 2.5 mg tab tab(s) TAKE 1 TABLET BY MOUTH TWICE A DAYnitroglycerin sublingual (NITROQUICK) 0.4 mg SL tablet DISSOLVE 1 TABUNDER THE TONGUE NEEDED FOR CHEST PAIN EVERY 5 MINUTES UP TO 3 TIMES.IF NO RELIEF CALL 911.metoprolol tartrate, short acting, (LOPRESSOR) 50 mg tablet Take 1 tabletby mouth twice daily.glucose 4 gram chewable tablet Take 4 tablets by mouth as needed for LowBlood Sugar.OXYGEN, HOME THERAPY, Inhale 3 L/min as instructed as directed.fluticasone (FLONASE) 50 mcg/actuation nasal spray Use 2 Sprays in eachnostril once daily.metFORMIN ER (GLUCOPHAGE XR) 500 mg 24 hr tablet Take 2 tablets by mouthtwice daily.DULoxetine (CYMBALTA) 60 mg capsule Take 1 capsule by mouth once daily.aspirin, enteric coated (ASPIRIN, ENTERIC COATED) 81 mg EC tablet Take 1tablet by mouth every morning.furosemide (LASIX) 40 mg tablet Take 1 tablet by mouth twice daily.albuterol HFA (VENTOLIN HFA) 90 mcg/actuation inhaler Inhale 2 Puffs asinstructed every 4 hours as needed for Wheezing/Shortness of Breath.COMPOUNDED PRESCRIPTION Evaluation for diabetic shoes and inserts Dx:E11.65, Z79.4blood sugar diagnostic (Yaolan.comTOUCH ULTRA TEST) test strip Use as directed [facility] blood sugar 4-5 times daily DX: E11.65 Insulin: yes DM: yeslancets (ONE TOUCH DELICA) 33 gauge misc Use as directed to check bloodsugar 4-5 times daily DX: E11.65 Insulin: yes DM: yesIncontinence Pad, Liner, Disp pads 1 Device as needed (urinaryincontinence). Prevail incontinence pads. Dx: urinary incontinence. Size:smallBlood Pressure Cuff - Home Use BLOOD PRESSURE CUFF FOR HOME USE. DX:LABILE BLOOD PRESSUREBlood-Glucose Meter (ONETOUCH ULTRA2) monitoring kit UAD to test bloodsugarAlcohol Swabs padm UAD to clean skin before testing blood sugar andinjecting insulins.PAST MEDICAL HISTORYDiagnosis Date- Acute chronic obstructive pulmonary disease with respiratory failure([facility])- AF (paroxysmal atrial fibrillation) ([facility])- Anxiety- Arthritis Seeing Dr Elliott- Cervical cancer ([facility]) hysterectomy- CHF (congestive heart failure) ([facility])- Chronic back pain Seeing Dr. Wallace- Constipation- COPD (chronic obstructive pulmonary disease) ([facility])- Coronary atherosclerosis of [place] coronary artery Previously seeing Dr. Sosa- DDD (degenerative disc disease), lumbar- DM type 2 (diabetes mellitus, type 2) ([facility]) Seeing Dr. Foley for podiatry- DVT (deep venous thrombosis) ([facility]) Post op INA, BSO.- Dysphagia Seeing Dr. Beaulieu- Emphysema lung ([facility])- Essential hypertension- Functional dyspepsia- Gastroparesis 2016 mild- GERD without esophagitis- Headache- History of colon polyps 11/28/2016- Hyperlipidemia- Hypothyroidism- Incontinence Seeing Dr. Chapman- Morbid obesity ([facility])- Muscle weakness- Nausea- PARESH on CPAP [facility], no longer using as of 10/2017, was notcompliant- PE (pulmonary thromboembolism) ([facility]) Post op INA/BSO.- Pneumonia- RLS (restless legs syndrome)- Shortness of breath- Sleep apnea using oxygen currently, not on CPAP- Unsteadiness on feet- WheezingPAST SURGICAL HISTORYProcedure Laterality Date- CHOLECYSTECTOMY- COLONOS W/REM POLYP SNARE 11/28/2016 Repeat 2019- COLONOSCOPY Has had multiple in the past with polyps, cannot remember dates- EGD W/O BRSH SPECIMEN W/BX 11/28/2016- HERNIA REPAIR HX multiple- KNEE SURGERY HX Left x3 for torn cartilage- NASAL SURGERY PROCEDURE sinus- TOTAL ABDOM HYSTERECTOMY 1988 Cervical cancer- TUBAL LIGATION HX- WRIST SURGERY HX Right ganglion cyst removal [id number] HISTORYProblem Relation Age of Onset- Coronary Artery Disease Mother- Coronary Artery Disease Father- Asthma Brother- Coronary Artery Disease Brother- Diabetes Sister- Hypertension Sister- Diabetes Sister- Heart Sister- Allergies Sister- Asthma Sister- Allergies Sister- Emphysema Sister Early stages- COPD Paternal UncleSocial History Marital status: Spouse name: Years of education: Number of children:Occupational HistoryOccupation Employer [employer], [employer].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 2nd spouse smoked in home. Alcohol use: No Drug use: No Sexual activity: NoSocial History Narrative 1 year in current home. No basement, 1 parakeet. Room A/C. Electricbaseboard heat.REVIEW OF SYSTEMS: General: No chills, fever, weight loss, night sweats. SHEENT: No change in vision or auditory acuity. Respiratory: Noproductive cough. History of COPD and asthma. Cardiac: As noted above.GI: No melena. Chronic occurred and gastroparesis : No dysuria.Musculoskeletal: Chronic myalgias. Neurologic: No strokes. Psychiatric:No depression. Endocrine: Positive for diabetes. Hematologic: No anemia.PHYSICAL EXAMINATION: S/he is alert and in no distressVITAL SIGNS: BP 98/60 Pulse 68 Wt 219 lb 11.2 oz (99.7kg)SHEENT: Skin is warm and dry. Pupils are round and reactive. Noxanthelasmas appreciated. Pharynx is benign. There is no oral cyanosis.Neck: supple. No adenopathy or thyroid enlargement. Chest: There are afew basilar rales which clear with cough. Trachea is midline. Air entryis equal. There is no chest wall tenderness. Cardiac: 1/6 systolicejection murmur rhythm. S1 and S2 are normal. PMI is nondisplaced.There are no murmurs, rubs or gallops. No click is heard. Carotids arebrisk without bruits. JVP is less than 10 cm. Abdomen: Soft andnontender. Obesity precludes adequate examination. There are no pulsatilemasses or bruits. No liver enlargement. Bowel sounds are active. :Deferred. Extremities: Trace edema. Pulses are diminished butsymmetrical. No clubbing or cyanosis. No femoral bruits. Neurologic:Grossly normal motor and sensory. S/he is alert and oriented x4.Musculoskeletal: No joint deformities.Recent labs were reviewed. CBC is within normal limits. There is mildrenal insufficiency. LDL was 76.EKG shows atrial fibrillation with controlled ventricular response. Thereare diffuse repolarization changes. No significant change is noted.Prior stress test showed a moderate to large inferolateral scar withminimal anterior ischemia.Echocardiogram done in 2013 reported normal LV function. There is nosignificant valvular disease.Previous records from Dr. Baez were reviewed. Her atrial fibrillation ischronic and she's been maintained on Eliquis and rate control. She has hadintermittent chest discomfort and has been treated with long-actingnitrates.Elec tronically Signed:Donal Albright, [facility] 2017 11:12 [facility]: Nanda Oliveira MD [facility] COVID-19 virus antigen assay SARS-CoV-2 (COVID-19) Ag IA.rapid Ql (Resp) [facility] Work Phone: Vital Signs Date Time Vital Sign Value Performing Clinician Edilia santana 06-19-2025 16:58-0400 Body temperature 98.2 [degF] Dr. Dylon Murrieta MD Work Phone: [facility] 06-19-2025 16:58-0400 Diastolic blood pressure 90 mm[Hg] Dr. Dylon Murrieta MD Work Phone: [facility] 06-19-2025 16:58-0400 Heart rate 95 /min Dr. Dylon Murrieta MD Work Phone: [facility] 06-19-2025 16:58-0400 Respiratory rate 18 /min Dr. Dylon Murrieta MD Work Phone: [facility] 06-19-2025 16:58-0400 SaO2% (BldA) [Mass fraction] 95 % Dr. Dylon Murrieta MD Work Phone: [facility] 06-19-2025 16:58-0400 Systolic blood pressure 132 mm[Hg] Dr. Dylon Murrieta MD Work Phone: 5(496)972-587757 [place] [address] 06-19-2025 13:36-0400 Body height 154.[address] Dylon Murrieta MD Work Phone: 5(686)364-880670 [place] [address] 06-19-2025 13:36-0400 Body mass index (BMI) [Ratio] 30.2 kg/m2 Dr. Dylon Murrieta MD Work Phone: 9(405)226-552870 [place] [address] 06-19-2025 13:36-0400 Body weight 72.[address] Dylon Murrieta MD Work Phone: 0(270)264-343070 [place] [address] 01-03-2025 14:46-0400 Body height 154.[address] Dylon Murrieta MD Work Phone: 9(820)634-161070 [place] [address] 01-03-2025 14:46-0400 Diastolic blood pressure 96 mm[Hg] Dr. Dylon Murrieta MD Work Phone: 8(227)904-966457 [place] [address] 01-03-2025 14:46-0400 Heart rate 113 /min Dr. Dylon Murrieta MD Work Phone: 4(830)106-551370 [place] [address] 01-03-2025 14:46-0400 Inhaled oxygen flow rate 2 L/min Dr. Dylon Murrieta MD Work Phone: 5(072)131-672470 [place] [address] 01-03-2025 14:46-0400 Respiratory rate 16 /min Dr. Dylon Murrieta MD Work Phone: 4(084)368-893457 [place] [address] 01-03-2025 14:46-0400 SaO2% (BldA) [Mass fraction] 98 % Dr. Dylon Murrieta MD Work Phone: 0(776)819-276757 [place] [address] 01-03-2025 14:46-0400 Systolic blood pressure 165 mm[Hg] Dr. Dylon Murrieta MD Work Phone: 9(008)024-311757 [place] [address] 12-05-2024 00:52-0400 Body temperature 98.6 [degF] Dr. Dylon Murrieta MD Work Phone: 9(651)753-321370 [place] [address] 12-05-2024 00:52-0400 Diastolic blood pressure 89 mm[Hg] Dr. Dylon Murrieta MD Work Phone: 0(921)479-691370 [place] [address] 12-05-2024 00:52-0400 Heart rate 93 /min Dr. Dylon Murrieta MD Work Phone: 1(442)815-513670 [place] [address] 12-05-2024 00:52-0400 Respiratory rate 20 /min Dr. Dylon Murrieta MD Work Phone: 7(639)356-793370 [place] [address] 12-05-2024 00:52-0400 SaO2% (BldA) [Mass fraction] 93 % Dr. Dylon Murrieta MD Work Phone: 6(035)765-801770 [place] [address] 12-05-2024 00:52-0400 Systolic blood pressure 142 mm[Hg] Dr. Dylon Murrieta MD Work Phone: 1(486)580-648770 [place] [address] 12-05-2024 00:30-0400 Inhaled oxygen flow rate 3 L/min Dr. Dylon Murrieta MD Work Phone: 4(892)509-273970 [place] [address] 12-04-2024 15:13-0400 Body height 154.[address] Dylon Murrieta MD Work Phone: 7(807)800-008070 [place] [address] 12-04-2024 15:13-0400 Body mass index (BMI) [Ratio] 36.6 kg/m2 Dr. Dylon Murrieta MD Work Phone: 8(777)094-585270 [place] [address] 12-04-2024 15:13-0400 Body weight 87.[address] Dylon Murrieta MD Work Phone: 7(907)747-644870 [place] [address] 11-04-2024 14:15-0500 Body mass index (BMI) [Ratio] 35.5 kg/m2 Dr. Dylon Murrieta MD Work Phone: 9(784)856-268170 [place] [address] 11-04-2024 14:15-0500 Body weight 85.[address] Dylon Murrieta MD Work Phone: 6(221)816-964170 [place] [address] 11-04-2024 14:15-0500 Diastolic blood pressure 77 mm[Hg] Dr. Dylon Murrieta MD Work Phone: 4(121)700-782770 [place] [address] 11-04-2024 14:15-0500 Heart rate 73 /min Dr. Dylon Murrieta MD Work Phone: 5(601)691-862570 [place] [address] 11-04-2024 14:15-0500 Inhaled oxygen flow rate 3 L/min Dr. Dylon Murrieta MD Work Phone: 9(137)983-019770 [place] [address] 11-04-2024 14:15-0500 Respiratory rate 20 /min Dr. Dylon Murrieta MD Work Phone: 4(424)949-995170 [place] [address] 11-04-2024 14:15-0500 SaO2% (BldA) [Mass fraction] 95 % Dr. Dylon Murrieta MD Work Phone: 0(112)352-437170 [place] [address] 11-04-2024 14:15-0500 Systolic blood pressure 115 mm[Hg] Dr. Dylon Murrieta MD Work Phone: 6(546)013-162470 [place] [address] 10-27-2024 13:36-0500 Body mass index (BMI) [Ratio] 35.6 kg/m2 Dr. Dylon Murrieta MD Work Phone: 6(096)570-309570 [place] [address] 10-27-2024 13:36-0500 Body weight 85.[address] Dylon Murrieta MD Work Phone: 2(716)514-318470 [place] [address] 10-27-2024 13:36-0500 Diastolic blood pressure 77 mm[Hg] Dr. Dylon Murrieta MD Work Phone: 1(880)011-200570 [place] [address] 10-27-2024 13:36-0500 Heart rate 75 /min Dr. Dylon Murrieta MD Work Phone: 1(064)499-851470 [place] [address] 10-27-2024 13:36-0500 Inhaled oxygen flow rate 3 L/min Dr. Dylon Murrieta MD Work Phone: 2(450)484-484870 [place] [address] 10-27-2024 13:36-0500 Respiratory rate 20 /min Dr. Dylon Murrieta MD Work Phone: 5(950)384-873270 [place] [address] 10-27-2024 13:36-0500 SaO2% (BldA) [Mass fraction] 96 % Dr. Dylon Murrieta MD Work Phone: 0(775)279-519670 [place] [address] 10-27-2024 13:36-0500 Systolic blood pressure 122 mm[Hg] Dr. Dylon Murrieta MD Work Phone: [facility] 05-03-2024 15:26-0400 Body mass index (BMI) [Ratio] 35.48 kg/m2 Megan Renee MD Work Phone: [facility] 05-03-2024 15:26-0400 Body weight 88 kg Megan Renee MD Work Phone: [facility] 05-03-2024 15:26-0400 Diastolic blood pressure 76 mm[Hg] Megan Renee MD Work Phone: [facility] 05-03-2024 15:26-0400 Systolic blood pressure 130 mm[Hg] Megan Renee MD Work Phone: [facility] 01-26-2024 09:40-0400 Body temperature 97 [degF] Dr. Dylon Murrieta Work Phone: [facility] 01-26-2024 09:40-0400 Diastolic blood pressure 80 mm[Hg] Dr. Dylon Murrieta Work Phone: [facility] 01-26-2024 09:40-0400 Heart rate 77 /min Dr. Dylon Murrieta Work Phone: [facility] 01-26-2024 09:40-0400 Inhaled oxygen flow rate 3 L/min Dr. Dylon Murrieta Work Phone: [facility] 01-26-2024 09:40-0400 Respiratory rate 16 /min Dr. Dylon Murrieta Work Phone: [facility] 01-26-2024 09:40-0400 SaO2% (BldA) [Mass fraction] 100 % Dr. Dylon Murrieta Work Phone: [facility] 01-26-2024 09:40-0400 Systolic blood pressure 124 mm[Hg] Dr. Dylon Murrieta Work Phone: [facility] 01-26-2024 08:22-0400 Body height 154.[address] Dylon Murrieta Work Phone: [facility] 01-26-2024 08:22-0400 Body mass index (BMI) [Ratio] 37 kg/m2 Dr. Dylon Murrieta Work Phone: [facility] 01-26-2024 08:22-0400 Body weight [address] Dylon Murrieta Work Phone: [facility] 11-27-2023 12:47-0500 Body temperature 97 [degF] Dr. Bhupendra Oliveira Work Phone: [facility] 11-27-2023 12:47-0500 Diastolic blood pressure 65 mm[Hg] Dr. Bhupendra Oliveira Work Phone: [facility] 11-27-2023 12:47-0500 Heart rate 96 /min Dr. Bhupendra Oliveira Work Phone: [facility] 11-27-2023 12:47-0500 Respiratory rate 16 /min Dr. Bhupendra Oliveira Work Phone: [facility] 11-27-2023 12:47-0500 SaO2% (BldA) [Mass fraction] 94 % Dr. Bhupendra Oliveira Work Phone: [facility] 11-27-2023 12:47-0500 Systolic blood pressure 118 mm[Hg] Dr. Bhupendra Oliveira Work Phone: [facility] 11-27-2023 11:40-0500 Inhaled oxygen flow rate 4 L/min Dr. Bhupendra Oliveira Work Phone: [facility] 11-27-2023 10:41-0500 Body height 154.[address] Bhupendra Oliveira Work Phone: [facility] 11-27-2023 10:41-0500 Body mass index (BMI) [Ratio] 36.2 kg/m2 Dr. Bhupendra Oliveira Work Phone: [facility] 11-27-2023 10:41-0500 Body weight [address] Bhupendra Oliveira Work Phone: 8(513)671-865583 [place] [address] 09-02-2023 09:19-0500 Body height 154.[address] Bhupendra Oliveira Work Phone: 0(582)403-060983 [place] [address] 09-02-2023 09:17-0500 Body mass index (BMI) [Ratio] 36.4 kg/m2 Dr. Bhupendra Oliveira Work Phone: 1(227)790-997283 [place] [address] 09-02-2023 09:17-0500 Body weight 87.[address] Bhupendra Oliveira Work Phone: 7(558)868-275383 [place] [address] 09-02-2023 09:17-0500 Diastolic blood pressure 77 mm[Hg] Dr. Bhupendra Oliveira Work Phone: 0(941)001-990683 [place] [address] 09-02-2023 09:17-0500 Heart rate 58 /min Dr. Bhupendra Oliveira Work Phone: 0(846)828-054483 [place] [address] 09-02-2023 09:17-0500 Respiratory rate 20 /min Dr. Bhupendra Oliveira Work Phone: 6(217)056-831583 [place] [address] 09-02-2023 09:17-0500 SaO2% (BldA) [Mass fraction] 100 % Dr. Bhupendra Oliveira Work Phone: 7(896)473-036983 [place] [address] 09-02-2023 09:17-0500 Systolic blood pressure 116 mm[Hg] Dr. Bhupendra Oliveira Work Phone: 4(089)994-412183 [place] [address] 08-20-2023 15:40-0500 Body temperature 98.9 [degF] Dr. Bhupendra Oliveira Work Phone: 7(196)120-321083 [place] [address] 08-20-2023 15:40-0500 Diastolic blood pressure 69 mm[Hg] Dr. Bhupendra Oliveira Work Phone: 8(727)134-677083 [place] [address] 08-20-2023 15:40-0500 Heart rate 105 /min Dr. Bhupendra Oliveira Work Phone: 9(282)012-382183 [place] [address] 08-20-2023 15:40-0500 Inhaled oxygen flow rate 1 L/min Dr. Bhupendra Oliveira Work Phone: 3(455)454-531696 [place] [address] 08-20-2023 15:40-0500 Respiratory rate 18 /min Dr. Bhupendra Oliveira Work Phone: 3(118)011-987983 [place] [address] 08-20-2023 15:40-0500 SaO2% (BldA) [Mass fraction] 100 % Dr. Bhupendra Oliveira Work Phone: 6(656)293-125283 [place] [address] 08-20-2023 15:40-0500 Systolic blood pressure 106 mm[Hg] Dr. Bhupendra Oliveira Work Phone: 9(698)941-529583 [place] [address] 08-20-2023 05:57-0500 Body mass index (BMI) [Ratio] 36.9 kg/m2 Dr. Bhupendra Oliveira Work Phone: 3(100)375-066783 [place] [address] 08-20-2023 05:57-0500 Body weight 88.[address] Bhupendra Oliveira Work Phone: 4(006)683-356883 [place] [address] 08-18-2023 09:24-0500 Body height 154.[address] Bhupendra Oliveira Work Phone: 1(659)909-724083 [place] [address] 08-13-2023 21:51-0500 Diastolic blood pressure 96 mm[Hg] Dr. Bhupendra Oliveira Work Phone: 1(596)879-593083 [place] [address] 08-13-2023 21:51-0500 Heart rate 117 /min Dr. Bhupendra Oliveira Work Phone: 2(870)984-886783 [place] [address] 08-13-2023 21:51-0500 Respiratory rate 20 /min Dr. Bhupendra Oliveira Work Phone: 7(675)767-161483 [place] [address] 08-13-2023 21:51-0500 SaO2% (BldA) [Mass fraction] 99 % Dr. Bhupendra Oliveira Work Phone: 9(388)563-171083 [place] [address] 08-13-2023 21:51-0500 Systolic blood pressure 144 mm[Hg] Dr. Bhupendra Oliveira Work Phone: 8(178)783-310183 [place] [address] 08-13-2023 17:22-0500 Inhaled oxygen flow rate 3 L/min Dr. Bhupendra Oliveira Work Phone: [facility] 08-13-2023 15:20-0500 Body temperature 98.7 [degF] Dr. Bhupendra Oliveira Work Phone: [facility] 08-13-2023 14:50-0500 Body height 154.[address] Bhupendra Oliveira Work Phone: [facility] 08-13-2023 14:50-0500 Body mass index (BMI) [Ratio] 38.3 kg/m2 Dr. Bhupendra Oliveira Work Phone: 4(212)772-120796 [place] [address] 08-13-2023 14:50-0500 Body weight 92.[address] Bhupendra Oliveira Work Phone: [facility] 08-13-2023 14:32-0500 Diastolic blood pressure 77 mm[Hg] Nanda Oliveira MD Work Phone: [facility] 08-13-2023 14:32-0500 Heart rate 120 /min Nanda Oliveira MD Work Phone: [facility] 08-13-2023 14:32-0500 Systolic blood pressure 111 mm[Hg] Nanda Oliveira MD Work Phone: [facility] 08-13-2023 13:32-0500 Body temperature 100.8 [degF] Nanda Oliveira MD Work Phone: [facility] 08-13-2023 13:32-0500 Respiratory rate 16 /min Nanda Oliveira MD Work Phone: [facility] 08-13-2023 13:32-0500 SaO2% (BldA) [Mass fraction] 99 % Nanda Oliveira MD Work Phone: [facility] 07-02-2023 08:11-0400 Body mass index (BMI) [Ratio] 37.4 kg/m2 Dr. Bhupendra Oliveira Work Phone: [facility] 07-02-2023 08:11-0400 Body weight 89.[address] Bhupendra Oliveira Work Phone: 3(064)291-379896 [place] [address] 07-02-2023 08:11-0400 Diastolic blood pressure 70 mm[Hg] Dr. Bhupendra Oliveira Work Phone: 3(128)026-005983 [place] [address] 07-02-2023 08:11-0400 Heart rate 75 /min Dr. Bhupendra Oliveira Work Phone: 9(240)158-648783 [place] [address] 07-02-2023 08:11-0400 Inhaled oxygen flow rate 3 L/min Dr. Bhupendra Oliveira Work Phone: 6(940)637-612983 [place] [address] 07-02-2023 08:11-0400 Respiratory rate 20 /min Dr. Bhupendra Oliveira Work Phone: 3(218)663-578183 [place] [address] 07-02-2023 08:11-0400 SaO2% (BldA) [Mass fraction] 99 % Dr. Bhupendra Oliveira Work Phone: 8(778)861-598283 [place] [address] 07-02-2023 08:11-0400 Systolic blood pressure 108 mm[Hg] Dr. Bhupendra Oliveira Work Phone: 0(160)847-827183 [place] [address] 06-10-2023 15:23-0400 Diastolic blood pressure 64 mm[Hg] Dr. Bhupendra Oliveira Work Phone: 7(214)489-651383 [place] [address] 06-10-2023 15:23-0400 Heart rate 87 /min Dr. Bhupendra Oliveira Work Phone: 1(737)253-538996 [place] [address] 06-10-2023 15:23-0400 Inhaled oxygen flow rate 3 L/min Dr. Bhupendra Oliveira Work Phone: 9(580)140-059896 [place] [address] 06-10-2023 15:23-0400 Respiratory rate 20 /min Dr. Bhupendra Oliveira Work Phone: 1(831)465-424783 [place] [address] 06-10-2023 15:23-0400 SaO2% (BldA) [Mass fraction] 99 % Dr. Bhupendra Oliveira Work Phone: 9(691)705-236483 [place] [address] 06-10-2023 15:23-0400 Systolic blood pressure 118 mm[Hg] Dr. Bhupendra Oliveira Work Phone: 9(687)526-388683 [place] [address] 06-10-2023 14:18-0400 Body mass index (BMI) [Ratio] 37.7 kg/m2 Dr. Bhupendra Oliveira Work Phone: 3(648)682-356683 [place] [address] 06-10-2023 14:18-0400 Body weight 90.[address] Bhupendra Oliveira Work Phone: 6(545)484-949383 [place] [address] 06-10-2023 14:07-0400 Body height 154.[address] Bhupendra Oliveira Work Phone: 4(782)893-474583 [place] [address] 06-10-2023 14:07-0400 Body temperature 96.9 [degF] Dr. Bhupendra Oliveira Work Phone: 4(751)937-204983 [place] [address] 06-05-2023 16:20-0400 Body temperature 98.4 [degF] Dr. Bhupendra Oliveira Work Phone: 7(513)612-694283 [place] [address] 06-05-2023 16:20-0400 Diastolic blood pressure 63 mm[Hg] Dr. Bhupendra Oliveira Work Phone: 1(073)038-529583 [place] [address] 06-05-2023 16:20-0400 Heart rate 92 /min Dr. Bhupendra Oliveira Work Phone: 7(151)578-467083 [place] [address] 06-05-2023 16:20-0400 Inhaled oxygen flow rate 2 L/min Dr. Bhupendra Oliveira Work Phone: 3(622)035-321496 [place] [address] 06-05-2023 16:20-0400 Respiratory rate 18 /min Dr. Bhupendra Oliveira Work Phone: 3(918)259-669583 [place] [address] 06-05-2023 16:20-0400 SaO2% (BldA) [Mass fraction] 99 % Dr. Bhupendra Oliveira Work Phone: 6(143)740-402183 [place] [address] 06-05-2023 16:20-0400 Systolic blood pressure 104 mm[Hg] Dr. Bhupendra Oliveira Work Phone: 8(677)308-119883 [place] [address] 06-03-2023 15:09-0400 Body height 154.[address] Bhupendra Oliveira Work Phone: [facility] 06-03-2023 15:09-0400 Body mass index (BMI) [Ratio] 38.4 kg/m2 Dr. Bhupendra Oliveira Work Phone: [facility] 06-03-2023 15:09-0400 Body weight 92.[address] Bhupendra Oliveira Work Phone: [facility] 05-15-2023 18:27-0400 Body height 154.94 cm [facility] 05-15-2023 18:27-0400 Body temperature 97.6 [degF] [facility] 05-15-2023 18:27-0400 Diastolic blood pressure 51 mm[Hg] [facility] 05-15-2023 18:27-0400 Heart rate 87 /min [facility] 05-15-2023 18:27-0400 Respiratory rate 18 /min [facility] 05-15-2023 18:27-0400 SaO2% (BldA) [Mass fraction] 100 % [facility] 05-15-2023 18:27-0400 Systolic blood pressure 90 mm[Hg] [facility] 05-13-2023 12:18-0400 Body weight 89.9 kg Katie Podlogar SH[employer] SEWER.TEST ENGINE EVALUATOR Work Phone: [facility] 05-13-2023 12:18-0400 Diastolic blood pressure 62 mm[Hg] Katie Podlogar SHIRT SEWER.TEST ENGINE EVALUATOR Work Phone: [facility] 05-13-2023 12:18-0400 Heart rate 64 /min Katie Podlogar SHIRT SEWER.TEST ENGINE EVALUATOR Work Phone: [facility] 05-13-2023 12:18-0400 Respiratory rate 18 /min Katie Podlogar SHIRT SEWER.TEST ENGINE EVALUATOR Work Phone: [facility] 05-13-2023 12:18-0400 SaO2% (BldA) [Mass fraction] 99 % Katie Podlogar SHIRT SEWER.TEST ENGINE EVALUATOR Work Phone: [facility] 05-13-2023 12:18-0400 Systolic blood pressure 104 mm[Hg] Katie Mckeon SHIRT SEWER.TEST ENGINE EVALUATOR Work Phone: [facility] 04-23-2023 23:13-0400 Diastolic blood pressure 92 mm[Hg] [facility] 04-23-2023 23:13-0400 Heart rate 85 /min [facility] 04-23-2023 23:13-0400 Respiratory rate 17 /min [facility] 04-23-2023 23:13-0400 SaO2% (BldA) [Mass fraction] 100 % [facility] 04-23-2023 23:13-0400 Systolic blood pressure 158 mm[Hg] [facility] 04-23-2023 22:09-0400 Inhaled oxygen flow rate 3 L/min [facility] 04-23-2023 18:01-0400 Body mass index (BMI) [Ratio] 37.6 kg/m2 [facility] 04-23-2023 18:01-0400 Body weight 90.3 kg [facility] 04-23-2023 17:59-0400 Body height 154.94 cm [facility] 04-23-2023 17:59-0400 Body temperature 97.6 [degF] [facility] 04-03-2023 14:05-0400 Body weight 89.81 kg Sury Live SH[employer] SEWER.TEST ENGINE EVALUATOR Work Phone: [facility] 04-03-2023 14:05-0400 Diastolic blood pressure 72 mm[Hg] Sury Dahlonega SHIRT SEWER.TEST ENGINE EVALUATOR Work Phone: [facility] 04-03-2023 14:05-0400 Systolic blood pressure 118 mm[Hg] [employer] SH[employer] SEWER.TEST ENGINE EVALUATOR Work Phone: [facility] 03-17-2023 14:29-0400 Body weight 89.99 kg Nanda Oliveira MD Work Phone: [facility] 03-17-2023 14:29-0400 Diastolic blood pressure 66 mm[Hg] Nanda Oliveira MD Work Phone: [facility] 03-17-2023 14:29-0400 Heart rate 76 /min Nanda Oliveira MD Work Phone: [facility] 03-17-2023 14:29-0400 Respiratory rate 16 /min Nanda Oliveira MD Work Phone: [facility] 03-17-2023 14:29-0400 SaO2% (BldA) [Mass fraction] 96 % Nanda Oliveira MD Work Phone: [facility] 03-17-2023 14:29-0400 Systolic blood pressure 118 mm[Hg] Nanda Oliveira MD Work Phone: [facility] 2023 18:14-0400 Diastolic blood pressure 63 mm[Hg] Dr. Bhupendra Oliveira Work Phone: [facility] 2023 18:14-0400 Heart rate 95 /min Dr. Bhupendra Oliveira Work Phone: 3(581)567-833296 [place] [address] 2023 18:14-0400 Respiratory rate 18 /min Dr. Bhupendra Oliveira Work Phone: [facility] 2023 18:14-0400 SaO2% (BldA) [Mass fraction] 100 % Dr. Bhupendra Oliveira Work Phone: [facility] 2023 18:14-0400 Systolic blood pressure 141 mm[Hg] Dr. Bhupendra Oliveira Work Phone: [facility] 2023 17:09-0400 Body temperature 97.8 [degF] Dr. Bhupendra Oliveira Work Phone: [facility] 2023 17:09-0400 Inhaled oxygen flow rate 3 L/min Dr. Bhupendra Oliveira Work Phone: [facility] 2023 15:18-0400 Body mass index (BMI) [Ratio] 37.4 kg/m2 Dr. Bhupendra Oliveira Work Phone: 7(773)961-855483 [place] [address] 2023 15:18-0400 Body weight [address] Bhupendra Oliveira Work Phone: 5(712)970-222183 [place] [address] 2023 13:32-0400 Body height 154.[address] Bhupendra Oliveira Work Phone: 2(768)589-159883 [place] [address] 01-14-2023 03:03-0400 Diastolic blood pressure 89 mm[Hg] Dr. Bhupendra Oliveira Work Phone: 2(291)656-604383 [place] [address] 01-14-2023 03:03-0400 Heart rate 105 /min Dr. Bhupendra Oliveira Work Phone: 8(966)010-344683 [place] [address] 01-14-2023 03:03-0400 Respiratory rate 24 /min Dr. Bhupendra Oliveira Work Phone: 8(172)177-038383 [place] [address] 01-14-2023 03:03-0400 SaO2% (BldA) [Mass fraction] 96 % Dr. Bhupendra Oliveira Work Phone: 4(272)600-109583 [place] [address] 01-14-2023 03:03-0400 Systolic blood pressure 135 mm[Hg] Dr. Bhupendra Oliveira Work Phone: 1(031)009-312483 [place] [address] 01-14-2023 00:57-0400 Body height 154.[address] Bhupendra Oliveira Work Phone: 0(905)991-853683 [place] [address] 01-14-2023 00:57-0400 Body mass index (BMI) [Ratio] 36 kg/m2 Dr. Bhupendra Oliveira Work Phone: 4(347)082-500983 [place] [address] 01-14-2023 00:57-0400 Body temperature 96.8 [degF] Dr. Bhupendra Oliveira Work Phone: 7(572)864-598383 [place] [address] 01-14-2023 00:57-0400 Body weight 86.[address] Bhupendra Oliveira Work Phone: 3(086)295-830783 [place] [address] 01-14-2023 00:57-0400 Inhaled oxygen flow rate 3 L/min Dr. Bhupendra Oliveira Work Phone: 6(397)723-361496 [place] [address] 01-04-2023 00:07-0400 Diastolic blood pressure 79 mm[Hg] Dr. Bhupendra Oliveira Work Phone: 0(094)465-057283 [place] [address] 01-04-2023 00:07-0400 Heart rate 75 /min Dr. Bhupendra Oliveira Work Phone: 6(394)883-152383 [place] [address] 01-04-2023 00:07-0400 Respiratory rate 18 /min Dr. Bhupendra Oliveira Work Phone: 7(099)820-387283 [place] [address] 01-04-2023 00:07-0400 SaO2% (BldA) [Mass fraction] 100 % Dr. Bhupendra Oliveira Work Phone: 9(166)[phone] [place] [address] 01-04-2023 00:07-0400 Systolic blood pressure 128 mm[Hg] Dr. Bhupendra Oliveira Work Phone: 6(535)[phone] [place] [address] 01-03-2023 18:06-0400 Body mass index (BMI) [Ratio] 36.4 kg/m2 Dr. Bhupendra Oliveira Work Phone: 3(558)[phone] [place] [address] 01-03-2023 18:06-0400 Body temperature 97.5 [degF] Dr. Bhupendra Oliveira Work Phone: 2(482)998-424683 [place] [address] 01-03-2023 18:06-0400 Body weight 87.[address] Bhupendra Oliveira Work Phone: 1(895)382-004083 [place] [address] 01-03-2023 18:06-0400 Inhaled oxygen flow rate 3 L/min Dr. Bhupendra Oliveira Work Phone: 3(869)200-353783 [place] [address] 01-03-2023 17:30-0400 Body height 154.[address] Bhupendra Oliveira Work Phone: 3(637)113-898283 [place] [address] 01-03-2023 16:49-0400 Body temperature 97.11 [degF] Almita MORA-Johana Work Phone: 6(143)634-484871 [place] [address] 01-03-2023 16:49-0400 Body weight 83.01 kg Almita Athy PA-C Work Phone: [facility] 01-03-2023 16:49-0400 Diastolic blood pressure 82 mm[Hg] Almita Athy PA-C Work Phone: [facility] 01-03-2023 16:49-0400 Heart rate 58 /min Almita Athy PA-C Work Phone: [facility] 01-03-2023 16:49-0400 Respiratory rate 18 /min Almita Athy PA-C Work Phone: [facility] 01-03-2023 16:49-0400 SaO2% (BldA) [Mass fraction] 98 % Almita Athy PA-C Work Phone: [facility] 01-03-2023 16:49-0400 Systolic blood pressure 126 mm[Hg] Almita Athy PA-C Work Phone: [facility] 12-20-2022 16:14-0400 Body temperature 98.7 [degF] Dr. Bhupendra Oliveira Work Phone: [facility] 12-20-2022 16:14-0400 Diastolic blood pressure 84 mm[Hg] Dr. Bhupendra Oliveira Work Phone: [facility] 12-20-2022 16:14-0400 Heart rate 78 /min Dr. Bhupendra Oliveira Work Phone: [facility] 12-20-2022 16:14-0400 Inhaled oxygen flow rate 3 L/min Dr. Bhupendra Oliveira Work Phone: [facility] 12-20-2022 16:14-0400 Respiratory rate 18 /min Dr. Bhupendra Oliveira Work Phone: [facility] 12-20-2022 16:14-0400 SaO2% (BldA) [Mass fraction] 98 % Dr. Bhupendra Oliveira Work Phone: [facility] 12-20-2022 16:14-0400 Systolic blood pressure 132 mm[Hg] Dr. Bhupendra Oliveira Work Phone: [facility] 12-19-2022 11:40-0400 Body height 154.[address] Bhupendra Oliveira Work Phone: 9(492)573-540383 [place] [address] 12-19-2022 11:40-0400 Body weight 91.[address] Bhupendra Oliveira Work Phone: 6(217)983-476483 [place] [address] 12-18-2022 22:27-0400 Body mass index (BMI) [Ratio] 38.1 kg/m2 Dr. Bhupendra Oliveira Work Phone: 6(668)176-325283 [place] [address] 11-29-2022 15:47-0500 Body mass index (BMI) [Ratio] 34.9 kg/m2 Dr. Bhupendra Oliveira Work Phone: 7(661)322-560383 [place] [address] 11-29-2022 15:47-0500 Body weight 86.[address] Bhupendra Oliveira Work Phone: 9(713)665-792483 [place] [address] 11-29-2022 15:47-0500 Diastolic blood pressure 82 mm[Hg] Dr. Bhupendra Oliveira Work Phone: 1(034)687-197483 [place] [address] 11-29-2022 15:47-0500 Heart rate 83 /min Dr. Bhupendra Oliveira Work Phone: 3(892)693-158383 [place] [address] 11-29-2022 15:47-0500 Respiratory rate 18 /min Dr. Bhupendra Oliveira Work Phone: 8(987)080-542996 [place] [address] 11-29-2022 15:47-0500 SaO2% (BldA) [Mass fraction] 100 % Dr. Bhupendra Oliveira Work Phone: 9(100)393-816596 [place] [address] 11-29-2022 15:47-0500 Systolic blood pressure 131 mm[Hg] Dr. Bhupendra Oliveira Work Phone: 0(575)165-361496 [place] [address] 11-07-2022 11:45-0500 Body height [address] ARLYN LESLIE MD [facility] 11-07-2022 11:45-0500 Body weight 86.[address] ARLYN LESLIE MD [facility] 10-04-2022 13:47-0500 Body height 157.[address] Bhupendra Oliveira Work Phone: [facility] 10-04-2022 13:47-0500 Body mass index (BMI) [Ratio] 33.5 kg/m2 Dr. Bhupendra Oliveira Work Phone: [facility] 10-04-2022 13:47-0500 Body weight [address] Bhupendra Oliveira Work Phone: 4(333)005-262283 [place] [address] 10-04-2022 13:47-0500 Diastolic blood pressure 88 mm[Hg] Dr. Bhupendra Oliveira Work Phone: [facility] 10-04-2022 13:47-0500 Heart rate 85 /min Dr. Bhupendra Oliveira Work Phone: 6(014)455-891796 [place] [address] 10-04-2022 13:47-0500 Inhaled oxygen flow rate 3 L/min Dr. Bhupendra Oliveira Work Phone: 5(271)520-468296 [place] [address] 10-04-2022 13:47-0500 Respiratory rate 18 /min Dr. Bhupendra Oliveira Work Phone: [facility] 10-04-2022 13:47-0500 SaO2% (BldA) [Mass fraction] 100 % Dr. Bhupendra Oliveira Work Phone: [facility] 10-04-2022 13:47-0500 Systolic blood pressure 117 mm[Hg] Dr. Bhupendra Oliveira Work Phone: [facility] 09-27-2022 11:29-0500 Body temperature 97.39 [degF] Nanda Oliveira MD Work Phone: [facility] 09-27-2022 11:29-0500 Body weight 83.37 kg Nanda Oliveira MD Work Phone: [facility] 09-27-2022 11:29-0500 Diastolic blood pressure 84 mm[Hg] Nanda Oliveira MD Work Phone: [facility] 09-27-2022 11:29-0500 Heart rate 75 /min Nanda Oliveira MD Work Phone: [facility] 09-27-2022 11:29-0500 Respiratory rate 16 /min Nanda Oliveira MD Work Phone: [facility] 09-27-2022 11:29-0500 SaO2% (BldA) [Mass fraction] 99 % Nanda Oliveira MD Work Phone: [facility] 09-27-2022 11:29-0500 Systolic blood pressure 128 mm[Hg] Nanda Oliveira MD Work Phone: [facility] 08-08-2022 13:39-0500 Body temperature 97.9 [degF] Dr. Bhupendra Oliveira Work Phone: 3(404)168-572296 [place] [address] 08-08-2022 13:39-0500 Diastolic blood pressure 72 mm[Hg] Dr. Bhupendra Oliveira Work Phone: 9(754)594-197096 [place] [address] 08-08-2022 13:39-0500 Heart rate 99 /min Dr. Bhupendra Oliveira Work Phone: 3(382)655-763996 [place] [address] 08-08-2022 13:39-0500 Inhaled oxygen flow rate 3 L/min Dr. Bhupendra Oliveira Work Phone: 4(377)899-307696 [place] [address] 08-08-2022 13:39-0500 Respiratory rate 16 /min Dr. Bhupendra Oliveira Work Phone: 9(771)536-760296 [place] [address] 08-08-2022 13:39-0500 SaO2% (BldA) [Mass fraction] 99 % Dr. Bhupendra Oliveira Work Phone: 3(019)625-064896 [place] [address] 08-08-2022 13:39-0500 Systolic blood pressure 119 mm[Hg] Dr. Bhupendra Oliveira Work Phone: 3(869)472-755596 [place] [address] 08-05-2022 12:17-0500 Body height 157.[address] Bhupendra Oliveira Work Phone: [facility] Work Phone: 08-05-2022 12:17-0500 Body mass index (BMI) [Ratio] 35.6 kg/m2 Dr. Bhupendra Oliveira Work Phone: [facility] 08-05-2022 12:17-0500 Body weight 88.[address] Bhupendra Oliveira Work Phone: [facility] 08-03-2022 20:22-0500 Body temperature 97.9 [degF] Dr. Bhupendra Oliveira Work Phone: [facility] Work Phone: 08-03-2022 20:22-0500 Diastolic blood pressure 94 mm[Hg] Dr. Bhupendra Oliveira Work Phone: [facility] Work Phone: 08-03-2022 20:22-0500 Heart rate 78 /min Dr. Bhupendra Oliveira Work Phone: [facility] Work Phone: 08-03-2022 20:22-0500 Respiratory rate 18 /min Dr. Bhupendra Oliveira Work Phone: [facility] Work Phone: 08-03-2022 20:22-0500 SaO2% (BldA) [Mass fraction] 100 % Dr. Bhupendra Oliveira Work Phone: [facility] Work Phone: 08-03-2022 20:22-0500 Systolic blood pressure 172 mm[Hg] Dr. Bhupendra Oliveira Work Phone: [facility] Work Phone: 08-03-2022 17:22-0500 Body height 157.[address] Bhupendra Oliveira Work Phone: [facility] Work Phone: 08-03-2022 17:22-0500 Body mass index (BMI) [Ratio] 36.2 kg/m2 Dr. Bhupendra Oliveira Work Phone: [facility] Work Phone: 08-03-2022 17:22-0500 Body weight 89.[address] Bhupendra Oliveira Work Phone: [facility] Work Phone: 07-11-2022 16:00-0400 Diastolic blood pressure 66 mm[Hg] Nanda Oliveira MD Work Phone: [facility] 07-11-2022 16:00-0400 Heart rate 72 /min Nanda Oliveira MD Work Phone: [facility] 07-11-2022 16:00-0400 Respiratory rate 18 /min Nanda Oliveira MD Work Phone: [facility] 07-11-2022 16:00-0400 SaO2% (BldA) [Mass fraction] 98 % Nanda Oliveira MD Work Phone: [facility] 07-11-2022 16:00-0400 Systolic blood pressure 110 mm[Hg] Nanda Oliveira MD Work Phone: [facility] 07-04-2022 11:57-0400 Body weight 89.18 kg Nanda Oliveira MD Work Phone: [facility] 07-04-2022 11:57-0400 Diastolic blood pressure 70 mm[Hg] Nanda Oliveira MD Work Phone: [facility] 07-04-2022 11:57-0400 Heart rate 70 /min Nanda Oliveira MD Work Phone: [facility] 07-04-2022 11:57-0400 Respiratory rate 20 /min Nanda Oliveira MD Work Phone: [facility] 07-04-2022 11:57-0400 SaO2% (BldA) [Mass fraction] 98 % Nanda Oliveira MD Work Phone: [facility] 07-04-2022 11:57-0400 Systolic blood pressure 126 mm[Hg] Nanda Oliveira MD Work Phone: [facility] 06-12-2022 14:16-0400 Diastolic blood pressure 80 mm[Hg] Dr. Bhupendra Oliveira Work Phone: [facility] Work Phone: 06-12-2022 14:16-0400 Systolic blood pressure 130 mm[Hg] Dr. Bhupendra Oliveira Work Phone: [facility] Work Phone: 06-12-2022 13:32-0400 Body height 157.[address] Bhupendra Oliveira Work Phone: [facility] Work Phone: 06-12-2022 13:32-0400 Body mass index (BMI) [Ratio] 35.6 kg/m2 Dr. Bhupendra Oliveira Work Phone: [facility] Work Phone: 06-12-2022 13:32-0400 Body weight 88.[address] Bhupendra Oliveira Work Phone: [facility] Work Phone: 06-12-2022 13:32-0400 Heart rate 80 /min Dr. Bhupendra Oliveira Work Phone: [facility] Work Phone: 06-12-2022 13:32-0400 Respiratory rate 16 /min Dr. Bhupendra Oliveira Work Phone: [facility] Work Phone: 06-04-2022 11:29-0400 Diastolic blood pressure 65 mm[Hg] Katja Coles DO Work Phone: [facility] 06-04-2022 11:29-0400 Heart rate 89 /min Katja Coles DO Work Phone: [facility] 06-04-2022 11:29-0400 SaO2% (BldA) [Mass fraction] 97 % Katja Coles DO Work Phone: [facility] 06-04-2022 11:29-0400 Systolic blood pressure 105 mm[Hg] Katja Coles DO Work Phone: [facility] 05-01-2022 15:08-0400 Body weight 87.54 kg Nanda Oliveira MD Work Phone: [facility] 05-01-2022 15:08-0400 Diastolic blood pressure 76 mm[Hg] Nanda Oliveira MD Work Phone: [facility] 05-01-2022 15:08-0400 Heart rate 110 /min Nanda Oliveira MD Work Phone: [facility] 05-01-2022 15:08-0400 Respiratory rate 18 /min Nanda Oliveira MD Work Phone: [facility] 05-01-2022 15:08-0400 SaO2% (BldA) [Mass fraction] 98 % Nanda Oliveira MD Work Phone: [facility] 05-01-2022 15:08-0400 Systolic blood pressure 130 mm[Hg] Nanda Oliveira MD Work Phone: [facility] 03-29-2022 14:54-0400 Diastolic blood pressure 72 mm[Hg] Nanda Oliveira MD Work Phone: [facility] 03-29-2022 14:54-0400 Heart rate 78 /min Nanda Oliveira MD Work Phone: [facility] 03-29-2022 14:54-0400 Respiratory rate 20 /min Nanda Oliveira MD Work Phone: [facility] 03-29-2022 14:54-0400 SaO2% (BldA) [Mass fraction] 97 % Nanda Oliveira MD Work Phone: [facility] 03-29-2022 14:54-0400 Systolic blood pressure 130 mm[Hg] Nanda Oliveira MD Work Phone: [facility] 03-01-2022 15:32-0400 Diastolic blood pressure 78 mm[Hg] Nanda Oliveira MD Work Phone: [facility] 03-01-2022 15:32-0400 Heart rate 94 /min Nanda Oliveira MD Work Phone: [facility] 03-01-2022 15:32-0400 Respiratory rate 20 /min Nanda Oliveira MD Work Phone: [facility] 03-01-2022 15:32-0400 SaO2% (BldA) [Mass fraction] 97 % Nanda Oliveira MD Work Phone: [facility] 03-01-2022 15:32-0400 Systolic blood pressure 130 mm[Hg] Nanda Oliveira MD Work Phone: [facility] 02-23-2022 11:10-0400 Diastolic blood pressure 104 mm[Hg] [facility] Work Phone: 02-23-2022 11:10-0400 Heart rate 95 /min [facility] Work Phone: 02-23-2022 11:10-0400 Inhaled oxygen flow rate 2 L/min Dr. Bhupendra Oliveira Work Phone: [facility] Work Phone: 02-23-2022 11:10-0400 Respiratory rate 20 /min [facility] Work Phone: 02-23-2022 11:10-0400 SaO2% (BldA) [Mass fraction] 99 % [facility] Work Phone: 02-23-2022 11:10-0400 Systolic blood pressure 178 mm[Hg] [facility] Work Phone: 02-23-2022 08:16-0400 Body height 157.48 cm [facility] Work Phone: 02-23-2022 08:16-0400 Body mass index (BMI) [Ratio] 37.2 kg/m2 [facility] Work Phone: 02-23-2022 08:16-0400 Body temperature 96.4 [degF] [facility] Work Phone: 02-23-2022 08:16-0400 Body weight 92.4 kg [facility] Work Phone: 12-27-2021 16:37-0400 Diastolic blood pressure 78 mm[Hg] Nanda Oliveira MD Work Phone: [facility] 12-27-2021 16:37-0400 Heart rate 116 /min Nanda Oliveira MD Work Phone: [facility] 12-27-2021 16:37-0400 Respiratory rate 22 /min Nanda Oliveira MD Work Phone: [facility] 12-27-2021 16:37-0400 SaO2% (BldA) [Mass fraction] 96 % Nanda Oliveira MD Work Phone: [facility] 12-27-2021 16:37-0400 Systolic blood pressure 128 mm[Hg] Nanda Oliveira MD Work Phone: [facility] 12-24-2021 02:29-0400 Diastolic blood pressure 78 mm[Hg] [facility] Work Phone: 12-24-2021 02:29-0400 Heart rate 74 /min [facility] Work Phone: 12-24-2021 02:29-0400 Respiratory rate 18 /min [facility] Work Phone: 12-24-2021 02:29-0400 SaO2% (BldA) [Mass fraction] 95 % [facility] Work Phone: 12-24-2021 02:29-0400 Systolic blood pressure 144 mm[Hg] [facility] Work Phone: 12-23-2021 23:50-0400 Body height 157.48 cm [facility] Work Phone: 12-23-2021 23:50-0400 Body mass index (BMI) [Ratio] 37 kg/m2 [facility] Work Phone: 12-23-2021 23:50-0400 Body temperature 96.5 [degF] [facility] Work Phone: 12-23-2021 23:50-0400 Body weight 91.9 kg [facility] Work Phone: Encounters Encounter Date Encounter Type Care Provider Facility Start: 06-19-2025 End: 06-19-2025 Emergency department patient visit Dr. Dylon Murrieta MD Work Phone: -Emergency Department Work Phone: Start: 06-02-2025 ambulatory Zaid Fish NP Facility :[facility] Start: 05-14-2025 End: 05-17-2025 Evaluation and management of inpatient [facility] Start: 05-06-2025 ambulatory [facility] Facility:[facility] Start: 04-13-2025 End: 04-13-[address] Dylon Murrieta MD Work Phone: -Laboratory Phy Office 3rd Flr Start: 04-13-2025 End: 04-13-[address] Dylon Murrieta MD -Laboratory Phy Office 3rd Flr Start: 04-13-2025 End: 04-13-2025 ambulatory Dylon Chi Lit Facility:[facility] Start: 04-01-2025 ambulatory [facility] Facility:[facility] Start: 03-23-2025 End: 03-23-[address] Dylon Murrieta MD Work Phone: -Nuclear Medicine [facility] Start: 03-23-2025 End: 03-23-2025 Patient encounter procedure Lizette Schneider NP-C -Nuclear Medicine [facility] Work Phone: Start: 03-23-2025 End: 03-23-2025 ambulatory Lizette Schneider Facility:[facility] Start: 03-15-2025 ambulatory Lizette Schneider [facility] ty:[facility] Start: 01-03-2025 End: 01-03-2025 Patient encounter procedure Lizette GURROLA -[facility] Work Phone: Start: 01-03-2025 End: 01-03-2025 ambulatory Dylon Murrieta Facility:[facility] Start: 12-05-2024 End: 12-05-2024 ambulatory MAEGAN Akira [facility] Start: 12-04-2024 End: 12-05-2024 Emergency department patient visit Dr. Dylon Murrieta MD Work Phone: -Emergency Department Work Phone: Start: 12-04-2024 End: 12-04-2024 Emergency department patient visit CHARLIE Sewell TRELL [facility] Start: 11-23-2024 ambulatory [facility] Lit Facility:[facility] Start: 11-04-2024 End: 11-04-[address] Bart Blas MD -[facility] Work Phone: Start: 11-04-2024 End: 11-04-2024 ambulatory Dylon Chi Lit Facility:[facility] Start: 10-28-2024 End: 10-28-2024 ambulatory SELF Facility:[facility] Start: 10-28-2024 End: 10-28-2024 Patient encounter procedure Demetria Cifuentes Work Phone: Podiatry Comment on above: Onychomycosis (Prima ry Dx); Pain in toe of right foot; Pain in toe of left foot; Venous insufficiency; Peripheral arterial disease (HCC); Other diabetic neurological complication associated with type 2 diabetes mellitus (HCC) Start: 10-27-2024 End: 10-27-2024 Patient encounter procedure Lizette GURROLA -[facility] Work Phone: Start: 10-27-2024 End: 10-27-2024 ambulatory Dylon Chi Lit Facility:[facility] Start: 10-14-2024 End: 10-14-[address] Dylon Murrieta MD -Laboratory, Phy Office 3rd Flr Start: 10-14-2024 End: 10-14-2024 ambulatory Dylon Chi Lit Facility:[facility] Start: 10-11-2024 ambulatory John Ho y:[facility] Start: 06-16-2024 End: 06-16-2024 Emergency department patient visit IRENE ABRAHAM [facility] Start: 05-05-2024 Telephone encounter Lizette bourgeois MD Work Phone: OB/Gynecology Start: 05-03-2024 End: 05-03-2024 Patient encounter procedure Megan Renee MD Work Phone: OB/Gynecology Comment on above: Full incontinence of feces (Primary Dx); Continuous leakage of urine; Vulvar irritation Start: 03-30-2024 Telephone encounter No Pcp NAPOLEON Johnson [place] Comment on above: Faxed to [facility] Start: 01-29-2024 End: 01-29-2024 Patient encounter procedure Demetria Cifuentes Work Phone: Podiatry Comment on above: Venous insufficiency (Primary Dx) Start: 01-26-2024 End: 01-26-2024 Admission to same day surgery center Dr. Dylon Murrieta Work Phone: [facility] Start: 01-26-2024 End: 01-26-[address] Dylon Murrieta Work Phone: [facility] Work Phone: Start: 01-15-2024 End: 01-15-2024 Patient encounter procedure Demetria Cifuentes Work Phone: Podiatry Comment on above: Onychomycosis (Prima ry Dx); Pain in toe of right foot; Pain in toe of left foot; Peripheral arterial disease (HCC); Other diabetic neurological complication associated with type 2 diabetes mellitus (HCC); Venous insufficiency Start: 01-13-2024 End: 01-13-[address] Dylon Murrieta Work Phone: [facility] Work Phone: Start: 01-13-2024 End: 01-13-[address] Dylon Murrieta Work Phone: [facility]-Laboratory, Phy Office 3rd Flr Start: 11-27-2023 Non-patient / Non-visit Dr. Jonah Murrieta Work Phone: [facility] Start: 11-27-2023 End: 11-27-2023 Admission to same day surgery center [facility]: Start: 11-27-2023 End: 11-27-[address] Bhupendra Oliveira Work Phone: [facility] Work Phone: Start: 11-27-2023 End: 11-27-2023 Dr. Bhupendra Oliveira Work Phone: [facility] Work Phone: Start: 11-18-2023 End: 11-18-[address] Bhupendra Oliveira Work Phone: [facility] Work Phone: Start: 11-18-2023 End: 11-18-[address] Dylon Murrieta Work Phone: [facility] Work Phone: Start: 11-18-2023 End: 11-18-2023 Dr. Bhupendra Oliveira Work Phone: [facility] Work Phone: Start: 11-11-2023 Non-patient / Non-visit Dr. Jonah Murrieta Work Phone: [facility] Start: 11-11-2023 End: 11-11-[address] [facility]ylon [facility]eta [facility] Work [facility] Start: 11-11-2023 End: 11-11-2023 Dr. Bhupendra Oliveira [facility] Start: 11-06-2023 End: 11-06-[address] Bhupendra Oliveira Work Phone: [facility] Work Phone: Start: 11-06-2023 End: 11-06-[address] Dylon Murrieta Work Phone: [facility] Work Phone: Start: 11-06-2023 End: 11-06-2023 Dr. Bhupendra Oliveira Work Phone: [facility] Work Phone: Start: 11-04-2023 End: 11-04-[address] Dylon Murrieta Work Phone: [facility] Work Phone: Start: 11-04-2023 End: 11-04-2023 Dr. Bhupendra Oliveira Work Phone: [facility] Work Phone: Start: 10-20-2023 End: 10-20-[address] Bhupendra Oliveira Work Phone: [facility] Work Phone: Start: 10-20-2023 End: 10-20-[address] [facility]ylon [facility]rieta [facility] Start: 10-20-2023 End: 10-20-2023 Dr. Bhupendra Oliveira [facility] Start: 10-13-2023 End: 10-13-[address] Bhupendra Oliveira Work Phone: [facility] Work Phone: Start: 10-13-2023 End: 10-13-[address] Dylon Murrieta Work Phone: [facility] Work Phone: Start: 10-13-2023 End: 10-13-2023 Dr. Bhupendra Oliveira Work Phone: [facility] Work Phone: Start: 09-11-2023 Telephone encounter Bhupendra Oliveira MD Work Phone: [facility] Comment on above: Medication Question Start: 09-10-2023 Telephone encounter Bhupendra Oliveira MD Work Phone: [facility] Comment on above: Results Start: 09-02-2023 End: 09-02-2023 Dr. Bhupendra Oliveira Work Phone: [facility] Work Phone: Start: 08-22-2023 ambulatory Nanda Oliveira MD Work Phone: [facility] Comment on above: Abdominal Pain Start: 08-20-2023 Dr. Bhupendra Oliveira Work Phone: [facility] Work Phone: Start: 08-19-2023 Dr. Bhupendra Oliveira Work Phone: [facility] Start: 08-19-2023 Dr. Bhupendra Oliveira Work Phone: [facility] Work Phone: Start: 08-18-2023 Dr. Bhupendra Oliveira Work Phone: [facility] Start: 08-18-2023 Dr. Bhupendra Oliveira Work Phone: [facility] Work Phone: Start: 08-17-2023 Dr. Bhupendra Oliveira Work Phone: [facility] Start: 08-17-2023 Dr. Bhupendra Oliveira Work Phone: [facility] Work Phone: Start: 08-16-2023 End: 08-16-2023 Dr. Bhupendra Oliveira Work Phone: [facility] Work Phone: Start: 08-16-2023 Dr. Bhupendra Oliveira Work Phone: [facility] Start: 08-16-2023 Dr. Bhupendra Oliveira Work Phone: [facility] Work Phone: Start: 08-15-2023 Dr. Bhupendra Oliveira Work Phone: [facility] Work Phone: Start: 08-14-2023 Dr. Bhupendra Oliveira Work Phone: [facility] Start: 08-14-2023 Dr. Bhupendra Oliveira Work Phone: [facility] Work Phone: Start: 08-13-2023 End: 08-20-2023 Evaluation and management of inpatient Dr. Bhupendra Oliveira Work Phone: [facility] Work Phone: Start: 08-13-2023 End: 08-20-2023 Dr. Bhupendra Oliveira Work Phone: [facility]Int[facility] Work Phone: Start: 08-13-2023 End: 08-13-2023 Patient encounter procedure Nanda Oliveira MD Work Phone: [facility] [place] Comment on above: Other chest pain (Pr imary Dx); Atrial fibrillation with RVR (HCC); FUO (fever of unknown origin); Shaking chills; Productive cough; Decreased breath sounds of both lungs; Confusion Start: 07-25-2023 Refill Nanda Oliveira MD Work Phone: [facility] Comment on above: Refill Request Start: 07-04-2023 Refill Nanda Oliveira MD Work Phone: [facility] Comment on above: Refill Request Start: 07-02-2023 End: 07-02-2023 Dr. Bhupendra Oliveira Work Phone: [facility] Work Phone: Start: 06-23-2023 Dr. Bhupendra Oliveira Work Phone: [facility] Start: 06-12-2023 Dr. Bhupendra Oliveira Work Phone: [facility] Start: 06-12-2023 End: 06-12-2023 Patient encounter procedure Demetria Cifuentes Work Phone: Podiatry Comment on above: Onychomycosis (Prima ry Dx); Pain in toe of right foot; Pain in toe of left foot; Peripheral arterial disease (HCC); Other diabetic neurological complication associated with type 2 diabetes mellitus (HCC) Start: 06-10-2023 End: 06-10-2023 Emergency department patient visit Dr. Bhupendra [facility]ira [facility] Start: 06-10-2023 End: 06-10-2023 Dr. Bhupendra Oliveira Work Phone: [facility] Work Phone: Start: 06-10-2023 Telephone encounter Bhupendra Oliveira MD Work Phone: [facility] Comment on above: [facility] with stent place ment Start: 06-05-2023 Non-patient / Non-visit Dr. Marta Oliveira Work Phone: [facility] Work Phone: Start: 06-05-2023 Dr. Bhupendra Oliveira Work Phone: [facility] Work Phone: Start: 06-05-2023 Non-patient / Non-visit Dr. Marta Oliveira Work Phone: [facility] Start: 06-05-2023 Dr. Bhupendra Oliveira Work Phone: [facility] Start: 06-04-2023 Non-patient / Non-visit Dr. Marta Oliveira Work Phone: [facility] Work Phone: Start: 06-04-2023 Dr. Bhupendra Oliveira Work Phone: [facility] Work Phone: Start: 06-04-2023 Non-patient / Non-visit Dr. Marta Oliveira Work Phone: [facility] Work Phone: Start: 06-04-2023 Dr. Bhupendra Oliveira Work Phone: [facility] Work Phone: Start: 06-04-2023 Non-patient / Non-visit Dr. Marta Oliveira Work Phone: [facility] Start: 06-04-2023 Dr. Bhupendra Oliveira Work Phone: [facility] Start: 06-03-2023 Non-patient / Non-visit Dr. Marta Oliveira Work Phone: [facility] Work Phone: Start: 06-03-2023 Dr. Bhupendra Oliveira Work Phone: [facility] Work Phone: Start: 06-03-2023 Non-patient / Non-visit Dr. Marta Oliveira Work Phone: [facility] Start: 06-03-2023 Dr. Bhupendra Oliveira Work Phone: [facility] Start: 06-03-2023 End: 06-05-2023 Evaluation and management of inpatient Dr. Bhupendra Oliveira Work Phone: [facility] Work Phone: Start: 06-03-2023 End: 06-05-[address] Bhupendra Oliveira Work Phone: [facility] Work Phone: Start: 06-03-2023 End: 06-05-2023 Dr. Bhupendra Oliveira Work Phone: [facility] Work Phone: Start: 06-03-2023 Refill Nanda Oliveira MD Work Phone: [facility] [place] Comment on above: Refill Request Start: 05-15-2023 End: 05-15-2023 [facility] Start: 05-15-2023 End: 05-15-2023 Dr. Bhupendra Oliveira Work Phone: [facility] Work Phone: Start: 05-15-2023 ambulatory Nanda Oliveira MD Work Phone: [facility] Comment on above: covid 19 concern Start: 05-13-2023 End: 05-13-2023 Patient encounter procedure Katie Mckeon APRN.TEST ENGINE EVALUATOR Work Phone: [facility] Comment on above: Type 2 diabetes juan manuel itus with hyperglycemia, with long-term current use of insulin (HCC) (Primary Dx); Coronary artery disease of [place] artery of [place] heart with stable angina pectoris (HCC) Start: 05-08-2023 End: 05-08-[address] [facility] Work Phone: Start: 05-08-2023 End: 05-08-2023 Patient encounter procedure [facility] Work Phone: Start: 05-08-2023 End: 05-08-2023 Dr. Bhupendra Oliveira Work Phone: [facility] Work Phone: Start: 05-06-2023 Refill Nanda Oliveira MD Work Phone: [facility] Comment on above: Refill Request; Refi ll Request Start: 04-23-2023 End: 04-23-2023 [facility] Start: 04-23-2023 End: 04-23-2023 Dr. Bhupendra Oliveira [facility]: Start: 04-23-2023 Refill Nanda Oliveira MD Work Phone: [facility] Comment on above: Refill Request Chest Pain Start: 04-03-2023 End: 04-03-2023 Patient encounter procedure Sury Mancini TEST ENGINE EVALUATOR Work Phone: OB/Gynecology Comment on above: Labial cyst (Primary Dx) Start: 03-24-2023 End: 03-24-2023 Patient encounter procedure Demetria Bryantbenjamin Work Phone: Podiatry Comment on above: Tinea pedis of left foot (Primary Dx); Dermatitis Start: 03-20-2023 Refill Nanda Oliveira MD Work Phone: [facility] Comment on above: Refill Request; Refi ll Request Start: 03-19-2023 Telephone encounter Bhupendra Oliveira MD Work Phone: [facility] Comment on above: error (Error-FOBT re sults) Start: 03-18-2023 Telephone encounter Bhupendra Oliveira MD Work Phone: [facility] Comment on above: Results Start: 03-17-2023 End: 03-17-2023 Patient encounter procedure Nanda Oliveira MD Work Phone: [facility] Comment on above: Type 2 diabetes juan manuel itus with diabetic neuropathy, with long- term current use of insulin (HCC) (Primary Dx); Fall in home, initial encounter; Injury of head, initial encounter; Essential hypertension; Petechiae; 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rder (HCC) Start: 03-17-2023 Telephone encounter Bhupendra Oliveira MD Work Phone: [facility] Comment on above: Patient Question Start: 02-28-2023 End: 02-28-2023 Subsequent hospital visit by physician [facility] Work Phone: Radiology Comment on above: Fall in home, initia l encounter [W19.XXXA, Y92.009] Start: 02-07-2023 End: 02-07-[address] Bhupendra Oliveira Work Phone: [facility] Work Phone: Start: 02-07-2023 End: 02-07-[address] Bhupendra Oliveira Work Phone: [facility] Work Phone: Start: 02-06-2023 End: 02-06-2023 Subsequent hospital visit by physician [facility] Work Phone: Radiology Comment on above: Bronchitis [J40] Start: 01-30-2023 End: 01-30-2023 Patient encounter procedure Demetria Cifuentes Work Phone: Podiatry Comment on above: Tinea pedis of left foot (Primary Dx); Blister of toe of left foot, initial encounter; Dermatitis Start: 01-24-2023 Refill Nanda Oliveira MD Work Phone: [facility] Comment on above: Refill Request Start: 2023 End: 2023 Emergency department patient visit Dr. Bhupendra Oliveira Work Phone: [facility] Work Phone: Start: 2023 End: 2023 Dr. Bhupendra Oliveira Work Phone: [facility] Start: 01-14-2023 End: 01-14-2023 Emergency department patient visit Dr. Bhupendra Oliveira [facility] Start: 01-14-2023 End: 01-14-2023 Dr. Bhupendra Oliveira [facility] Start: 01-13-2023 Telephone encounter Bhupendra Oliveira MD Work Phone: [facility] Comment on above: Results Start: 01-09-2023 End: 01-09-2023 Subsequent hospital visit by physician [facility] Work Phone: Radiology Comment on above: Cellulitis of left f oot [L03.116] Start: 01-08-2023 ambulatory Nanda Oliveira MD Work Phone: [facility] Start: 01-06-2023 Telephone encounter Bhupendra Oliveira MD Work Phone: [facility] Comment on above: DME request Start: 01-03-2023 End: 01-04-2023 Emergency department patient visit Dr. Bhupendra Oliveira Work Phone: [facility] Start: 01-03-2023 End: 01-04-2023 Dr. Bhupendra Oliveira [facility] Start: 01-03-2023 End: 01-03-2023 Patient encounter procedure Almita Youssef PA-C Work Phone: [facility] Comment on above: Foot pain, left (Anna franca Dx) Start: 01-03-2023 Telephone encounter Bhupendra Oliveira MD Work Phone: [facility] Comment on above: Left foot possible i nfection; Incontinent supplies Start: 12-27-2022 Refill Nanda Oliveira MD Work Phone: [facility] Comment on above: Refill Request Start: 12-20-2022 Non-patient / Non-visit Dr. Marta Oliveira Work Phone: [facility] Start: 12-20-2022 Dr. Bhupendra Oliveira Work Phone: [facility] Start: 12-19-2022 Non-patient / Non-visit Dr. Marta Oliveira Work Phone: [facility] Start: 12-19-2022 Dr. Bhupendra Oliveira Work Phone: [facility] Start: 12-18-2022 End: 12-20-2022 Evaluation and management of inpatient Dr. Bhupendra Oliveira Work Phone: [facility] 3 Start: 12-18-2022 End: 12-20-2022 Dr. Bhupendra Oliveira Work Phone: [facility] Start: 12-05-2022 Telephone encounter Bhupendra Oliveira MD Work Phone: [facility] Comment on above: Patient Update; Makenna ent Question Start: 11-29-[address] Bhupendra Oliveira Work Phone: [facility] Start: 11-29-[address] Dylon Murrieta MD Work Phone: [facility] Start: 11-29-2022 End: 11-29-2022 Encounter for other preprocedural examination Dr. Bhupendra Oliveira Work Phone: [facility] Start: 11-29-2022 End: 11-29-[address] Bhupendra Oliveira Work Phone: [facility] Start: 11-29-2022 End: 11-29-2022 Dr. Bhupendra Oliveira Work Phone: [facility] Start: 11-07-2022 End: 11-08-[address] ARLYN LESLIE MD Facility:B Start: 11-07-2022 End: 11-08-[address] ARLYN LESLIE MD Facility:[facility] Start: 11-07-[address] ARLYN LOREDO MD Facility:[facility] Start: 11-07-2022 End: 11-07-[address] ARLYN LESLIE MD [facility] Start: 11-05-2022 End: 11-05-[address] Bhupendra Oliveira Work Phone: [facility] Start: 11-05-2022 End: 11-05-2022 Dr. Bhupendra Oliveira Work Phone: [facility] Start: 11-04-2022 Refill Nanda Oliveira MD Work Phone: [facility] Comment on above: Refill Request Start: 10-15-2022 Non-patient / Non-visit Dr. Marta Oliveira Work Phone: [facility] Start: 10-15-2022 Dr. Bhupendra Oliveira Work Phone: [facility] Start: 10-15-2022 End: 10-15-[address] Bhupendra Oliveira Work Phone: [facility] Work Phone: Start: 10-15-2022 End: 10-15-[address] Bhupendra Oliveira Work Phone: [facility] Start: 10-15-2022 End: 10-15-2022 Dr. Bhupendra Oliveira [facility] Start: 10-09-2022 Telephone encounter Bhupendra Oliveira MD Work Phone: [facility] Comment on above: Patient Update Start: 10-04-2022 Refill Nanda Oliveira MD Work Phone: [facility] Comment on above: Refill Request Patient Question Start: 10-04-2022 End: 10-04-[address] Bhupendra Oliveira Work Phone: [facility] Start: 10-04-2022 End: 10-04-2022 Dr. Bhupendra Oliveira Work Phone: [facility] Start: 09-30-2022 Telephone encounter Bhupendra Oliveira MD Work Phone: [facility] Comment on above: Results Start: 09-27-2022 End: 09-27-2022 Preoperative state Xr Kinjal Work Phone: [facility] Start: 09-27-2022 End: 09-27-2022 Subsequent hospital visit by physician [facility] Work Phone: Radiology Comment on above: Pre-operative cleara nce [Z01.818] Start: 09-27-2022 End: 09-27-2022 Patient encounter procedure Nanda Oliveira MD Work Phone: [facility] Comment on above: Pre-operative cleara nce (Primary Dx); Closed fracture of left hip with delayed healing, subsequent encounter; At high risk for falls; AF (paroxysmal atrial fibrillation) (HCC); Chest pain, unspecified type; Type 2 diabetes mellitus with diabetic neuropathy, with long-term current use of insulin (HCC); Essential hypertension; Hyperlipidemia, unspecified hyperlipidemia type; Hypothyroidism, acquired; Pulmonary HTN (HCC); Chronic respiratory failure with hypercapnia (HCC); On home oxygen therapy; Stage 3 chronic kidney disease, unspecified whether stage 3a or 3b CKD (HCC); Type 2 diabetes mellitus with stage 3 chronic kidney disease, with long-term current use of insulin, unspecified whether stage 3a or 3b CKD (HCC); Diabetic gastroparesis associated with type 2 diabetes mellitus (HCC); Chronic diastolic congestive heart failure (HCC); 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 Marta Oliveira Work Phone: [facility] Start: 09-18-2022 End: 09-18-[address] Bhupendra Oliveira Work Phone: [facility] Work Phone: Start: 09-18-2022 End: 09-18-[address] Bhupendra Oliveira Work Phone: [facility] Start: 09-18-2022 End: 09-18-2022 Dr. Bhupendra Oliveira Work Phone: [facility] Start: 09-06-2022 Refill Nanda Oliveira MD Work Phone: [facility] [place] Comment on above: Refill Request Start: 08-08-2022 Non-patient / Non-visit Dr. Marta Oliveira Work Phone: [facility] Start: 08-07-2022 Non-patient / Non-visit Dr. Marta Oliveira Work Phone: [facility] Start: 08-06-2022 Non-patient / Non-visit Dr. Marta Oliveira Work Phone: [facility] Start: 08-05-2022 Non-patient / Non-visit Dr. Marta Oliveira Work Phone: [facility] Start: 08-04-2022 Non-patient / Non-visit Dr. Marta Oliveira Work Phone: [facility] Start: 08-03-2022 End: 08-03-2022 Non-patient / Non-visit Dr. Bhupendra Oliveira Work Phone: [facility] Start: 08-03-2022 Non-patient / Non-visit Dr. Marta Oliveira Work Phone: [facility] Start: 08-03-2022 End: 08-08-2022 Evaluation and management of inpatient Dr. Bhupendra Oliveira [facility] Start: 07-17-2022 Refill Nanda Oliveira MD Work Phone: [facility] Comment on above: Refill Request Start: 07-16-2022 Telephone encounter Jessica Bains Comment on above: Patient Update Start: 07-14-2022 Telephone encounter Bhupendra Oliveira MD Work Phone: [facility] Comment on above: Results Start: 07-11-2022 End: 07-11-2022 Patient encounter procedure Nanda Oliveira MD Work Phone: [facility] Comment on above: Urinary incontinence , unspecified type (Primary Dx); Urinary frequency; Type 2 diabetes mellitus with diabetic neuropathy, with long-term current use of insulin ([facility]); Incontinence of feces, unspecified fecal incontinence type; Itching; Candidal intertrigo Start: 07-04-2022 End: 07-04-2022 Patient encounter procedure Nanda Oliveira MD Work Phone: [facility] Comment on above: Type 2 diabetes juan manuel itus with diabetic neuropathy, with long- term current use of insulin ([facility]) (Primary Dx); Epistaxis; Anemia, unspecified type; Essential hypertension; AF (paroxysmal atrial fibrillation) ([facility]); Need for influenza vaccination; Need for COVID-19 vaccine Start: 07-01-2022 Refill Nanda Oliveira MD Work Phone: [facility] [place] Comment on above: Refill Request Start: 06-21-2022 Refill Nanda Oliveira MD Work Phone: [facility] Comment on above: Refill Request Start: 06-12-2022 End: 06-12-[address] Bhupendra Oliveira Work Phone: [facility] Work Phone: Start: 06-12-2022 End: 06-12-[address] Bhupendra Oliveira Work Phone: [facility] Start: 06-12-2022 End: 06-12-[address] Bhupendra Oliveira Work Phone: [facility] [facility] Start: 06-11-2022 Telephone encounter Katja Coles DO Work Phone: Vascular Medicine Comment on above: Returning Patient's Call Appointment Start: 06-04-2022 End: 06-04-2022 Patient encounter procedure Katja Coles DO Work Phone: Vascular Surgery Comment on above: Peripheral arterial disease (HCC) (Primary Dx); Dusky feet Start: 05-29-2022 Telephone encounter Katja Coles DO Work Phone: Vascular Surgery Comment on above: Appointment (Needs t esting ) Start: 05-22-2022 Refill Nanda Oliveira MD Work Phone: [facility] Comment on above: Refill Request Start: 05-01-2022 End: 05-01-2022 Patient encounter procedure Nanda Oliveira MD Work Phone: [facility] Comment on above: Type 2 diabetes juan manuel itus with diabetic neuropathy, with long- term current use of insulin (HCC) (Primary Dx); Positive urine drug screen; Acute left flank pain; Tinea pedis of both feet; PARESH treated with BiPAP; PAD (peripheral artery disease) (HCC); Dusky feet; Essential hypertension Start: 04-25-2022 Refill Nanda Oliveira MD Work Phone: [facility] Comment on above: Refill Request Start: 04-05-2022 Telephone encounter Bhupendra Oliveira MD Work Phone: [facility] Comment on above: Results Start: 04-04-2022 End: 04-04-2022 Subsequent hospital visit by physician [facility] [place] Work Phone: Radiology Comment on above: Itching [L29.9] Start: 03-29-2022 End: 03-29-2022 Patient encounter procedure Nanda Oliveira MD Work Phone: [facility] Comment on above: Dusky feet (Primary Dx); Type 2 diabetes mellitus with diabetic neuropathy, with long-term current use of insulin ([facility]); Urinary frequency; Essential hypertension; Epistaxis; 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 Start: 03-29-2022 Telephone encounter Bhupendra Oliveira MD Work Phone: [facility] Comment on above: Consult Start: 03-04-2022 Telephone encounter Bhupendra Oliveira MD Work Phone: [facility] Comment on above: Results Internal Referrals/r esources Start: 03-01-2022 End: 03-01-2022 Patient encounter procedure Nanda Oliveira MD Work Phone: [facility] Comment on above: Epistaxis (Primary D x); Melanotic stools; Dusky feet; Type 2 diabetes mellitus with diabetic neuropathy, with long-term current use of insulin (HCC); Type 2 diabetes mellitus with hyperglycemia, with long-term current use of insulin (HCC); Essential hypertension Refill Request Start: 02-23-2022 End: 02-23-2022 Subsequent hospital visit by physician [facility] Comment on above: NOSE BLEED/TRIAGE Start: 02-23-2022 End: 02-23-2022 [facility] Start: 02-08-2022 Telephone encounter Bhupendra Oliveira MD Work Phone: [facility] Comment on above: SOB for months Start: 02-06-2022 ambulatory Nnada Oliveira MD Work Phone: [facility] [place] Start: 02-01-2022 Refill Nanda Oliveira MD Work Phone: [facility] Comment on above: Refill Request Start: 01-30-2022 Telephone encounter Bhupendra Oliveira MD Work Phone: [facility] Comment on above: Release Of Medical R ecords Start: 12-27-2021 End: 12-27-2021 Patient encounter procedure Nanda Oliveira MD Work Phone: [facility] Comment on above: Fall in home, initia l encounter (Primary Dx); Closed fracture of one rib of left side, initial encounter; Abrasion of left elbow, initial encounter; Acute pain of left shoulder; Acute hip pain, left; Acute pain of left knee Start: 12-23-2021 End: 12-24-2021 [facility] Start: 12-20-2021 Telephone encounter Bhupendra Oliveira MD Work Phone: [facility] Comment on above: Patient Update Start: 12-14-2020 Patient encounter procedure SELF SELF Facility:[facility] Start: 02-26-2018 Ambulatory [facility] Facility :[facility] Start: 12-18-2017 End: 12-18-2017 Ambulatory [facility] Facility:[facility] Start: 12-16-2017 End: 12-16-2017 Ambulatory [facility] Facility:[facility] Start: 11-11-2017 End: 01-03-2020 Patient encounter status Demetria Vane Work Phone: [facility] Procedures Date Procedure Procedure Detail Performing Clinician Start: 06-19-2025 Plain x-ray of pelvis and lower extremity Dr. Dylon Murrieta MD Work Phone: Start: 06-19-2025 CT cervical spine without contrast Dr. Dylon Murrieta MD Work Phone: Start: 06-19-2025 CT of head without contrast Dr. Dylon Murrieta MD Work Phone: Start: 05-14-2025 Urinalysis CHARLIE PETERSON Comment on above: Result Comment: URINALYSIS Performed By: #### [id number] ####[facility],[address] [place] [address] Start: 04-13-2025 Vitamin D, 25-hydroxy measurement Dr. Jonah Murrieta MD Work Phone: Comment on above: Vitamin D StatusDeficiency: <20 ng/mL (5 0nmol/L)Insufficiency: 20-30 ng/mL (50-75 nmol/L)Sufficiency: 30-100 ng/mL (75-250 nmol/L)Toxicity: >100 ng/mL (>250 nmol/L) Start: 03-23-2025 Radionuclide gastric emptying study Dr. Dylon Murrieta MD Work Phone: Start: 12-04-2024 Plain chest X-ray Dr. Dylon Murrieta MD Work Phone: Start: 12-04-[address] Dylon perez MD Work Phone: Start: 01-26-2024 Local anesthetic lumbar epidural block Dr. Dylon Murrieta Work Phone: Start: 01-26-2024 Injection of facet joint Dr. Dylon Murrieta Work Phone: Start: 01-26-2024 Injection of spinal epidural space Dr. Dylon Murrieta Work Phone: Start: 01-13-2024 Investigation of transfusion reaction Dr. Dylon Murrieta Work Phone: Start: 01-13-2024 Microbial culture, routine Dr. Dylon Murrieta Work Phone: Start: 11-27-2023 End: 11-27-[address] Bhupendra Oliveira Work Phone: Start: 11-27-[address] Bhupendra Oliveira Work Phone: Start: 11-18-2023 X-ray of lumbosacral spine Dr. Titus Oliveira Work Phone: Start: 11-06-[address] Bhupendra Oliveira Work Phone: Start: 08-18-2023 Plain X-ray abdomen Dr. Bhupendra Oliveira Work Phone: Start: 08-16-2023 End: 08-16-[address] Bhupendra Oliveira Work Phone: Start: 08-16-[address] Bhupendra Oliveira Work Phone: Start: 08-15-[address] Bhupendra Oliveira Work Phone: Start: 08-13-2023 US scan of gallbladder Dr. Bhupendra Oliveira Work Phone: Start: 08-13-2023 Plain chest X-ray Dr. Bhupendra Oliveira Work Phone: Start: 08-13-2023 Ecg routine ecg w/least 12 lds i&r only [facility] Provider Start: 08-13-[address] Bhupendra Oliveira Work Phone: Start: 06-10-2023 Plain chest X-ray Dr. Bhupendra Oliveira Work Phone: Start: 06-04-2023 History of placement of stent for coronary artery disease Dr. Bart Blas MD Comment on above: [id number] w/2.25 x 18 mm Resolute Camille x RX SU, PTCA alone to in-stent restenosis D1 06/04/23 Start: 06-03-2023 Plain chest X-ray Dr. Bhupendra Oliveira Work Phone: Start: 06-03-2023 CT of chest and abdomen Dr. 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 Bhupendra Oliveira Work Phone: Start: 2023 SARS-CoV-2 & FLU Antigen (Rapid) Dr. Aura Oliveira Work Phone: Start: 01-14-2023 Respiratory Panel (PCR) Dr. Bhupendra Oliveira Work Phone: Start: 01-14-2023 Plain chest X-ray Dr. Bhupendra Oliveira Work Phone: Start: 01-09-2023 Radex foot complete minimum 3 views Nanda Oliveira MD Work Phone: Start: 01-03-2023 X-ray of both feet Dr. Bhupendra Oliveira Work Phone: Start: 12-18-2022 Plain X-ray of hip Dr. Bhupendra Oliveira Work Phone: Start: 12-18-[address] Bhupendra Oliveira Work Phone: Start: 12-18-2022 Plain x-ray of pelvis and lower extremity Dr. Bhupendra Oliveira Work Phone: Start: 12-18-2022 IM Rodding Hip, Intertan Nail S/N (Left) Dr. Bhupendra Oliveira Work Phone: Start: 12-18-2022 Dr. Bhupendra Oliveira Work Phone: Start: 12-11-2022 Nasal Screen MRSA/MSSA Dr. Bhupendra Oliveira Work Phone: Start: 10-15-2022 Cardiovascular stress test using pharmacologic stress agent Dr. Bhupendra Oliveira Work Phone: Start: 09-27-2022 Radiologic exam chest 2 views Bhupendra Oliveira MD Work Phone: Start: 09-27-2022 Ecg routine ecg w/least 12 lds i&r only [facility] Provider Start: 08-05-2022 Plain X-ray of hip Dr. Bhupendra Oliveira Work Phone: Start: 08-05-[address] Bhupendra Oliveira Work Phone: Start: 08-05-2022 Plain X-ray of hip Dr. Bhupendra Oliveira Work Phone: Start: 08-05-2022 IM Rodding Hip, Intertan Nail S/N (Left) Dr. Bhupendra Oliveira Work Phone: Start: 08-03-2022 Pelvis X-ray Dr. Bhupendra Oliveira Work Phone: Start: 08-03-2022 Plain X-ray of femur Dr. Bhupendra Oliveira Work Phone: Start: 08-03-2022 Plain x-ray of humerus Dr. Bhupendra Oliveira Work Phone: Start: 08-03-2022 Plain X-ray of tibia and fibula Dr. Seven Oliveira Work Phone: Start: 08-03-2022 X-ray of radius and ulna Dr. Bhupendra Oliveira Work Phone: Start: 08-03-2022 CT cervical spine without contrast Dr. Bhupendra Oliveira Work Phone: Start: 08-03-2022 CT of head without contrast Dr. Alexy Oliveira Work Phone: Start: 07-11-2022 Culture bacterial quanttative colony count urine Nanda Oliveira MD Work Phone: Start: 07-11-2022 Urnls dip stick/tablet rgnt auto w/o microscopy Nanda Oliveira MD Work Phone: Start: 07-04-2022 [facility] COVID-19 BIVALENT BOOSTER VACCINE, AGE 12+ YR Nanda Oliveira MD Work Phone: Start: 07-04-2022 INFLUENZA SEASONAL QUADRIVALENT HIGH DOSE AGE 65+ Nanda Oliveira MD Work Phone: Start: 05-01-2022 Urnls dip stick/tablet rgnt auto w/o microscopy Nanda Oliveira MD Work Phone: Start: 04-04-2022 Radiologic exam chest 2 views Bhupendra Oliveira MD Work Phone: Start: 03-29-2022 Drug tst prsmv instrmnt chem analyzers pr date Nanda Oliveira MD Work Phone: Start: 03-29-2022 Urnls dip stick/tablet rgnt auto w/o microscopy Nanda Oliveira MD Work Phone: Start: 12-24-2021 CT of head without contrast Start: 12-24-2021 Plain x-ray of elbow Start: 12-24-2021 Plain x-ray of pelvis and lower extremity Start: 12-24-2021 Plain X-ray of shoulder Start: 12-24-2021 Radiologic examination of knee Start: 12-24-2021 X-ray of chest posteroanterior view Start: 12-28-2020 Mammography Nanda Oliveira MD Work Phone: Start: 01-23-2018 History of placement of stent for coronary artery disease S/P coronary artery stent placement Nnada Oliveira MD Work Phone: Start: 11-29-2016 Colonoscopy Nanda Oliveira MD Work Phone: Cardiac catheterization DR Karson LESLIE MD Cholecystectomy DR ARLYN LOREDO MD Hernia of abdominal cavity (disorder) DR ARLYN LESLIE MD Hysterectomy DR ARLYN Sotomayor MD Nasal Screen MRSA/MSSA Dr. Johana Oliveira Work Phone: SARS-CoV-2 & FLU Antigen (Rapid) Dr. Bhupendra Oliveira Work Phone: Tonsillectomy DR ARLYN RAMSEY MD Viral antigen assay Dr. Seven Oliveira Work Phone: Viral antigen assay Dr. Seven Oliveira Work Phone: Dr. Bhupendra Oliveira Work Phone: Dr. Bhupendra Oliveira Work Phone: Dr. Bhupendra Oliveira Work Phone: Plan of Treatment Date Care Activity Detail Author Start: 10-02-2026 Urine microalbumin profile [facility] Start: 06-25-2025 Glaucoma screening Dilated Retinal Exam [facility] Start: 06-19-2025 [facility] Start: 02-24-2025 End: 02-24-2025 Patient encounter procedure 02/24/2025 3:30 PM EDT Office Visit Podiatry [address] [place] [address] Demetria Cifuentes [address] [id number] 4 month follow up nail care Podiatry Comment on above: 4 month follow up nail care Start: 12-04-2024 [facility] Start: 12-04-2024 [facility] Start: 12-04-2024 [facility] Start: 09-22-2024 Advance Directive Discussion Advance Directive Discussion [facility] Start: 09-09-2024 Annual PCP Team Chronic Disease Visit Annual PCP Team Chronic Disease Visit [facility] Start: 09-09-2024 BP Controlled (<130/80) BP Controlled (<130/80) [facility] Start: 09-09-2024 Creatinine measurement Serum Creatinine [facility] Start: 08-13-2024 Annual PCP Team Chronic Disease Visit Annual PCP Team Chronic Disease Visit [facility] Start: 08-13-2024 BP Controlled (<130/80) BP Controlled (<130/80) [facility] Start: 06-23-2024 Glaucoma screening Dilated Retinal Exam [facility] Start: 06-23-2024 Hepatitis C antibody, confirmatory test Dilated Retinal Exam [facility] Start: 06-13-2024 Annual PCP Team Chronic Disease Visit Annual PCP Team Chronic Disease Visit [facility] Start: 06-13-2024 BP Controlled (<130/80) BP Controlled (<130/80) [facility] Start: 06-13-2024 Covid-19 Vaccine () Covid-19 Vaccine () [facility] Comment on above: Postponed from 05/23/2023 (Declined at t his time) Start: 05-23-2024 Covid-19 Vaccine () Covid-19 Vaccine () [facility] Start: 05-23-2024 Covid-19 Vaccine () Covid-19 Vaccine () [facility] Start: 05-23-2024 Influenza vaccination Influenza Vaccine (#1) [facility] Start: 05-20-2024 BP Controlled (<130/80) BP Controlled (<130/80) [facility] Start: 05-13-2024 3 comp foot exam completed DIABETIC FOOT EXAM [facility] Start: 05-13-2024 ANNUAL PCP TEAM CHRONIC DISEASE VISIT ANNUAL PCP TEAM CHRONIC DISEASE VISIT [facility] Start: 05-13-2024 BP CONTROLLED (<130/80) BP CONTROLLED (<130/80) [facility] Start: 05-13-2024 Diabetic foot examination Diabetic Foot Exam [facility] Start: 04-03-2024 BP CONTROLLED (<130/80) BP CONTROLLED (<130/80) [facility] Start: 03-17-2024 ANNUAL PCP TEAM CHRONIC DISEASE VISIT ANNUAL PCP TEAM CHRONIC DISEASE VISIT [facility] Start: 03-17-2024 BP CONTROLLED (<130/80) BP CONTROLLED (<130/80) [facility] Start: 03-17-2024 Complete blood count Hemoglobin/Hematocrit [facility] Start: 03-17-2024 FECAL OCCULT BLOOD FECAL OCCULT BLOOD [facility] Start: 03-17-2024 HEMOGLOBIN/HEMATOCRIT HEMOGLOBIN/HEMATOCRIT [facility] Start: 03-17-2024 Hepatitis B screening URINE ALBUMIN:CREATININE RATIO [facility] Start: 03-11-2024 Covid-19 Vaccine () Covid-19 Vaccine () [facility] Start: 02-07-2024 HEMOGLOBIN/HEMATOCRIT HEMOGLOBIN/HEMATOCRIT [facility] Start: 02-07-2024 SERUM CREATININE SERUM CREATININE [facility] Start: 02-07-2024 SHINGRIX VACCINE (2 of 3) SHINGRIX VACCINE (2 of 3) [facility] Comment on above: Postponed from 03/11/2017 (Declined at t his time) Start: 01-29-2024 End: 01-29-2024 Patient encounter procedure 01/29/2024 4:00 PM EDT Office Visit Podiatry [address] [place], [place] [id number] Demetria Cifuentes [address] [place], [place] [id number] 2 wk f/u ulcer R stern Podiatry Comment on above: 2 wk f/u ulcer R stern Start: 01-26-2024 X-ray of lumbosacral spine L/S Spine Min [address] [facility] Start: 01-26-2024 XR Spine Lumbar and Sacrum GE [address] [facility] Start: 01-26-[address] [facility] Start: 01-10-2024 ANNUAL PCP TEAM CHRONIC DISEASE VISIT ANNUAL PCP TEAM CHRONIC DISEASE VISIT [facility] Start: 01-10-2024 BP CONTROLLED (<130/80) BP CONTROLLED (<130/80) [facility] Start: 01-10-2024 HEMOGLOBIN/HEMATOCRIT HEMOGLOBIN/HEMATOCRIT [facility] Start: 01-06-2024 Shingrix Vaccine (3 of 3) Shingrix Vaccine (3 of 3) [facility] Start: 11-27-2023 Ercp remove calculi/debris biliary/pancreas duct ERCP REMOVE DUCT CALCULI [facility] Start: 11-27-2023 Ercp remove foreign body/stent biliary/panc duct ERCP REMOVE FORGN BODY DUCT [facility] Start: 11-27-2023 Ercp w/sphincterotomy/papillotomy ENDO CHOLANGIOPANCREATOGRAPH [facility] Start: 11-27-20[address] [facility] Start: 11-27-2023 RF Guidance for endoscopy of Biliary ducts and Pancreatic duct-- W contrast retrograde [facility] Start: 11-27-[address] [facility] Start: 11-13-2023 Hemoglobin A1c measurement HbA1C [facility] Start: 11-13-2023 Hemoglobin A1c/Hemoglobin.total in Blood HBA1C [facility] Start: 09-27-2023 ANNUAL PCP TEAM CHRONIC DISEASE VISIT ANNUAL PCP TEAM CHRONIC DISEASE VISIT [facility] Start: 09-27-2023 HEMOGLOBIN/HEMATOCRIT HEMOGLOBIN/HEMATOCRIT [facility] Start: 09-27-2023 Hepatitis B surface antibody level LDL CHOLESTEROL [facility] Start: 09-27-2023 SERUM CREATININE SERUM CREATININE [facility] Start: 09-22-2023 Advance Directive Discussion Advance Directive Discussion [facility] Start: 08-25-2023 [facility] Start: 08-24-2023 [facility] Start: 08-23-2023 [facility] Start: 08-22-2023 [facility] Start: 08-21-2023 [facility] Start: 08-20-[address] [facility] Start: 08-19-2023 [facility] Start: 08-19-2023 [facility] Start: 08-18-2023 Referral to occupational therapist [facility] Start: 08-18-[address] [facility] Start: 08-17-[address] [facility] Start: 08-17-2023 [facility] Start: 08-15-[address] [facility] Start: 08-15-[address] [facility] Start: 08-14-2023 Thyroid stimulating hormone measurement [facility] Start: 08-14-2023 [facility] Start: 08-14-2023 Referral to gastroenterology service [facility] Start: 08-13-2023 Following clinical pathway protocol [facility] Start: 08-13-2023 Application of intermittent pneumatic compression device [facility] Start: 08-13-[address] [facility] Start: 08-13-[address] [facility] Start: 08-13-[address] [facility] Start: 08-13-[address] [facility] Start: 08-13-[address] [facility] Start: 08-13-[address] [facility] Start: 08-13-2023 Assessment of risk of venous thromboembolism [facility] Start: 08-13-2023 Insertion of catheter into peripheral vein [facility] Start: 08-13-2023 Measuring intake and output [facility] Start: 08-13-2023 Providing care according to standard [facility] Start: 08-13-[address] [facility] Start: 08-13-2023 End: 08-13-2023 [facility] Start: 08-13-[address] [facility] Start: 08-13-2023 Hospital admission, emergency, from emergency room, medical nature [facility] Start: 08-13-2023 End: 08-13-2023 [facility] Start: 08-13-2023 End: 10-13-2023 Comprehensive metabolic 2000 panel - Serum or Plasma COMP METABOLIC PANEL Lab Routine Type 2 diabetes mellitus with hyperglycemia, with long-term current use of insulin (HCC) Expected: 08/13/2023, Expires: 10/13/2023 [facility] Work Phone: Comment on above: Expected: 08/13/2023, Expires: 4 Start: 08-13-2023 End: 10-13-2023 Hemoglobin A1c in Blood HGB A1C Lab Routine Type 2 diabetes mellitus with hyperglycemia, with long-term current use of insulin (HCC) Expected: 08/13/2023, Expires: 10/13/2023 [facility] Work Phone: Comment on above: Expected: 08/13/2023, Expires: 4 Start: 07-11-2023 ANNUAL PCP TEAM CHRONIC DISEASE VISIT ANNUAL PCP TEAM CHRONIC DISEASE VISIT [facility] Start: 07-11-2023 BP CONTROLLED (<130/80) BP CONTROLLED (<130/80) [facility] Start: 07-04-2023 ANNUAL PCP TEAM CHRONIC DISEASE VISIT ANNUAL PCP TEAM CHRONIC DISEASE VISIT [facility] Start: 07-04-2023 BP CONTROLLED (<130/80) BP CONTROLLED (<130/80) [facility] Start: 07-04-2023 HEMOGLOBIN/HEMATOCRIT HEMOGLOBIN/HEMATOCRIT [facility] Start: 07-04-2023 SERUM CREATININE SERUM CREATININE [facility] Start: 06-23-[address] [facility] Work Phone: Start: 06-10-2023 End: 06-10-2023 [facility] Start: 06-05-[address] [facility] Start: 06-05-[address] [facility] Start: 06-05-[address] [facility] Start: 06-04-2023 BP CONTROLLED (<130/80) BP CONTROLLED (<130/80) [facility] Start: 06-04-[address] [facility] Start: 06-04-2023 Cardiac rehabilitation - phase 1 [facility] Start: 06-04-2023 Cardiac rehabilitation - phase 2 [facility] Start: 06-04-2023 End: 06-04-[address] [facility] Start: 06-04-[address] [facility] Start: 06-04-2023 Systemic arterial pressure monitoring [facility] Start: 06-04-2023 Vascular disease risk assessment [facility] Start: 06-04-[address] [facility] Start: 06-04-2023 End: 06-04-2023 [facility] Start: 06-04-[address] [facility] Start: 06-04-2023 Provision of activity privileges [facility] Start: 06-04-[address] [facility] Start: 06-04-2023 End: 06-04-2023 Taking patient vital signs [facility] Start: 06-04-[address] [facility] Start: 06-03-[address] [facility] Start: 06-03-[address] [facility] Start: 06-03-[address] [facility] Start: 06-03-2023 [facility] Start: 06-03-[address] [facility] Start: 06-03-2023 Assessment of risk of venous thromboembolism [facility] Start: 06-03-[address] [facility] Start: 06-03-[address] [facility] Start: 06-03-[address] [facility] Start: 06-03-2023 Insertion of catheter into peripheral vein [facility] Start: 06-03-2023 Measuring intake and output [facility] Start: 06-03-[address] [facility] Start: 06-03-[address] [facility] Start: 06-03-2023 Providing care according to standard [facility] Start: 06-03-2023 Referral to cargo and ramp services manager [facility] Start: 06-03-2023 [facility] Start: 06-03-2023 Following clinical pathway protocol [facility] Start: 06-03-[address] [facility] Start: 05-23-2023 Influenza vaccination [facility] Start: 05-15-2023 [facility] Start: 05-09-2023 Hemoglobin A1c/Hemoglobin.total in Blood HBA1C [facility] Start: 05-01-2023 ANNUAL PCP TEAM CHRONIC DISEASE VISIT ANNUAL PCP TEAM CHRONIC DISEASE VISIT [facility] Start: 04-23-2023 [facility] Start: 04-04-2023 HEMOGLOBIN/HEMATOCRIT HEMOGLOBIN/HEMATOCRIT [facility] Start: 03-29-2023 ANNUAL PCP TEAM CHRONIC DISEASE VISIT ANNUAL PCP TEAM CHRONIC DISEASE VISIT [facility] Start: 03-27-2023 Hemoglobin A1c/Hemoglobin.total in Blood HBA1C [facility] Start: 03-18-2023 COLORECTAL CANCER SCREENING COLORECTAL CANCER SCREENING [facility] Start: 03-01-2023 3 comp foot exam completed DIABETIC FOOT EXAM [facility] Start: 03-01-2023 ANNUAL PCP TEAM CHRONIC DISEASE VISIT ANNUAL PCP TEAM CHRONIC DISEASE VISIT [facility] Start: 03-01-2023 HEMOGLOBIN/HEMATOCRIT HEMOGLOBIN/HEMATOCRIT [facility] Start: 03-01-2023 Hepatitis B screening URINE ALBUMIN:CREATININE RATIO [facility] Start: 03-01-2023 Hepatitis B surface antibody level LDL CHOLESTEROL [facility] Start: 03-01-2023 SERUM CREATININE SERUM CREATININE [facility] Start: 2023 [facility] Start: 01-14-2023 End: 01-14-2023 [facility] Start: 01-03-2023 End: 01-03-[address] [facility] Start: 01-02-2023 Hemoglobin A1c/Hemoglobin.total in Blood HBA1C [facility] Start: 12-27-2022 ANNUAL PCP TEAM CHRONIC DISEASE VISIT ANNUAL PCP TEAM CHRONIC DISEASE VISIT [facility] Start: 12-27-2022 BP CONTROLLED (<130/80) BP CONTROLLED (<130/80) [facility] Start: 12-20-[address] [facility] Start: 12-20-[address] [facility] Start: 12-20-[address] [facility] Start: 12-20-[address] [facility] Start: 12-20-2022 [facility] Start: 12-19-[address] [facility] Start: 12-19-2022 Referral to occupational therapist [facility] Start: 12-19-[address] [facility] Start: 12-19-[address] [facility] Start: 12-18-2022 Following clinical pathway protocol [facility] Start: 12-18-[address] [facility] Start: 12-18-[address] [facility] Start: 12-18-2022 Application of ice collar, cap or bag [facility] Start: 12-18-[address] [facility] Start: 12-18-[address] [facility] Start: 12-18-[address] [facility] Start: 12-18-[address] [facility] Start: 12-18-2022 Provision of activity privileges [facility] Start: 12-18-2022 Recommendation to continue with treatment [facility] Start: 12-18-[address] [facility] Start: 12-18-[address] [facility] Start: 12-18-2022 [facility] Start: 12-18-2022 Patient referral to dietitian [facility] Start: 11-23-2022 ANNUAL PCP TEAM CHRONIC DISEASE VISIT ANNUAL PCP TEAM CHRONIC DISEASE VISIT [facility] Start: 11-13-2022 HEMOGLOBIN/HEMATOCRIT HEMOGLOBIN/HEMATOCRIT [facility] Start: 11-13-2022 SERUM CREATININE SERUM CREATININE [facility] Start: 11-04-2022 COVID-19 VACCINE (5 - Pfizer series) COVID-19 VACCINE (5 - Pfizer series) [facility] Start: 09-22-2022 ADVANCE DIRECTIVE DISCUSSION ADVANCE DIRECTIVE DISCUSSION [facility] Start: 08-24-2022 3 comp foot exam completed DIABETIC FOOT EXAM [facility] Start: 08-08-[address] [facility] Start: 08-05-2022 Provision of overbed trapeze [facility] Start: 08-05-[address] [facility] Start: 08-05-[address] [facility] Start: 08-05-2022 Assessment of risk of venous thromboembolism [facility] Start: 08-05-[address] [facility] Start: 08-05-[address] [facility] Start: 08-05-2022 Following clinical pathway protocol [facility] Start: 08-05-[address] [facility] Start: 08-05-2022 Introduction of urinary catheter [facility] Start: 08-05-2022 Measuring intake and output [facility] Start: 08-05-[address] [facility] Start: 08-05-[address] [facility] Start: 08-05-[address] [facility] Start: 08-05-2022 Provision of activity privileges [facility] Start: 08-05-2022 Referral to occupational therapist [facility] Start: 08-05-[address] [facility] Start: 08-05-[address] [facility] Start: 08-05-[address] [facility] Start: 08-05-2022 End: 08-05-2022 [facility] Start: 08-05-[address] [facility] Start: 08-05-[address] [facility] Start: 08-04-2022 Measuring intake and output [facility] Start: 08-04-2022 Measuring intake and output [facility] Start: 08-04-2022 Measuring intake and output [facility] Start: 08-03-2022 Following clinical pathway protocol [facility] Start: 08-03-[address] [facility] Start: 08-03-2022 Application of ice collar, cap or bag [facility] Start: 08-03-2022 Assessment of risk of venous thromboembolism [facility] Start: 08-03-[address] [facility] Start: 08-03-[address] [facility] Start: 08-03-[address] [facility] Start: 08-03-[address] [facility] Start: 08-03-2022 Insertion of catheter into peripheral vein [facility] Start: 08-03-[address] [facility] Start: 08-03-2022 Providing care according to standard [facility] Start: 08-03-[address] [facility] Start: 08-03-[address] [facility] Start: 08-03-2022 [facility] Start: 08-03-2022 Measuring intake and output [facility] Start: 08-03-[address] [facility] Work Phone: Start: 08-03-[address] [facility] Work Phone: Start: 08-03-[address] [facility] Work Phone: Start: 08-03-[address] [facility] Start: 07-04-2022 End: 09-03-2022 CBC W Auto Differential panel - Blood [facility] Work Phone: Comment on above: Expected: 07/04/2022, Expires: 2 Start: 07-04-2022 End: 09-03-2022 Comprehensive metabolic 2000 panel - Serum or Plasma [facility] Work Phone: Comment on above: Expected: 07/04/2022, Expires: 2 Start: 07-04-2022 End: 09-03-2022 Hemoglobin A1c in Blood [facility] Work Phone: Comment on above: Expected: 07/04/2022, Expires: 2 Start: 06-01-2022 Hemoglobin A1c/Hemoglobin.total in Blood HBA1C [facility] Start: 05-25-2022 BP CONTROLLED (<130/80) BP CONTROLLED (<130/80) [facility] Start: 05-23-2022 Influenza vaccination INFLUENZA (#1) [facility] Start: 05-14-2022 FECAL OCCULT BLOOD FECAL OCCULT BLOOD [facility] Start: 05-14-2022 Screening for malignant neoplasm of colon Fecal Occult Blood [facility] Start: 05-13-2022 Hemoglobin A1c/Hemoglobin.total in Blood HBA1C [facility] Start: 04-02-2022 Hepatitis C antibody, confirmatory test DILATED RETINAL EXAM [facility] Start: 04-01-2022 End: 06-01-2022 CBC W Auto Differential panel - Blood CBC + DIFF Lab Routine Itching Expected: 04/01/2022, Expires: 06/01/2022 [facility] Work Phone: Comment on above: Expected: 04/01/2022, Expires: 2 Start: 04-01-2022 End: 06-01-2022 Ferritin [Mass/volume] in Serum or Plasma FERRITIN BLD Lab Routine Itching Expected: 04/01/2022, Expires: 06/01/2022 [facility] Work Phone: Comment on above: Expected: 04/01/2022, Expires: 2 Start: 04-01-2022 End: 06-01-2022 Iron and Iron binding capacity panel - Serum or Plasma IRON + TIBC Lab Routine Itching Expected: 04/01/2022, Expires: 06/01/2022 [facility] Work Phone: Comment on above: Expected: 04/01/2022, Expires: 2 Start: 04-01-2022 End: 06-01-2022 Thyrotropin [Units/volume] in Serum or Plasma TSH BLD Lab Routine Itching Expected: 04/01/2022, Expires: 06/01/2022 [facility] Work Phone: Comment on above: Expected: 04/01/2022, Expires: 2 Start: 03-29-2022 End: 05-29-2022 PAIN PANEL, UR QUANT [facility] Work Phone: Comment on above: Expected: 03/29/2022, Expires: 2 Start: 03-13-2022 COVID-19 VACCINE (4 - Booster for Pfizer series) COVID-19 VACCINE (4 - Booster for Pfizer series) [facility] Start: 03-04-2022 End: 05-04-2022 CBC W Auto Differential panel - Blood CBC + DIFF Lab Routine Anemia, unspecified type Expected: 03/04/2022, Expires: 05/04/2022 [facility] Work Phone: Comment on above: Expected: 03/04/2022, Expires: 2 Start: 03-04-2022 End: 05-04-2022 Ferritin [Mass/volume] in Serum or Plasma FERRITIN BLD Lab Routine Anemia, unspecified type Expected: 03/04/2022, Expires: 05/04/2022 [facility] Work Phone: Comment on above: Expected: 03/04/2022, Expires: 2 Start: 03-04-2022 End: 05-04-2022 Iron and Iron binding capacity panel - Serum or Plasma IRON + TIBC Lab Routine Anemia, unspecified type Expected: 03/04/2022, Expires: 05/04/2022 [facility] Work Phone: Comment on above: Expected: 03/04/2022, Expires: 2 Start: 02-23-2022 Control nasal hemorrhage anterior simple CONTROL OF NOSEBLEED [facility] Work Phone: Start: 02-08-2022 Hepatitis B screening URINE ALBUMIN:CREATININE RATIO [facility] Start: 01-08-2022 COVID-19 VACCINE (4 - Booster for Pfizer series) COVID-19 VACCINE (4 - Booster for Pfizer series) [facility] Start: 12-28-2021 Mammography [facility] Start: 12-28-2021 Screening for malignant neoplasm of breast Mammogram Screening [facility] Start: 12-07-2021 Hepatitis B surface antibody level LDL CHOLESTEROL [facility] Start: 11-29-2021 Colonoscopy COLONOSCOPY [facility] Start: 11-29-2021 COLORECTAL CANCER SCREENING COLORECTAL CANCER SCREENING [facility] Start: 11-29-2021 Screening for malignant neoplasm of colon [facility] Start: 09-22-2021 ADVANCE DIRECTIVE DISCUSSION ADVANCE DIRECTIVE DISCUSSION [facility] Start: 03-11-2017 SHINGRIX VACCINE (2 of 3) SHINGRIX VACCINE (2 of 3) [facility] Start: 2015 Hepatitis B Vaccine (1 of 3 - Risk 3-dose series) Hepatitis B Vaccine (1 of 3 - Risk 3-dose series) [facility] Start: 2015 RSV Vaccine (1 - 1-dose 60+ series) RSV Vaccine (1 - 1-dose 60+ series) [facility] Start: 2005 Screening for malignant neoplasm of lung Lung Cancer Screening [facility] Start: 01-17-2000 COLOGUARD (FIT-DNA) COLOGUARD (FIT-DNA) [facility] Start: 01-17-[address] COLONOGRAPHY [facility] Start: 01-17-2000 Screening for malignant neoplasm of colon [facility] Start: 01-17-2000 SIGMOIDOSCOPY SIGMOIDOSCOPY [facility] [address] [facility] Work Phone: Alanine aminotransfe rase [Enzymatic activity/volume] in Serum or Plasma [facility] Albumin [Mass/volume ] in Serum or Plasma [facility] Alkaline phosphatase [Enzymatic activity/volume] in Serum or Plasma [facility] Anion gap measurement [facility] Aspartate aminotrans ferase [Enzymatic activity/volume] in Serum or Plasma [facility] Bilirubin, total measurement [facility] BUN/Creatinine ratio [facility] Calcium [Mass/volume ] in Serum or Plasma [facility] Carbon dioxide, tota l [Moles/volume] in Serum or Plasma [facility] Celiac disease screen [facility] Chloride [Moles/volu me] in Serum or Plasma [facility] Clostridioides diffi cile DNA [Presence] in Unspecified specimen by SANDRA with probe detection [facility] Creatinine [Moles/vo lume] in Serum or Plasma [facility] End: 05-31-2023 Ct abdomen & pelvis w/o contrast material CT FLANK WO IVCON Radiology DAVEY Acute left flank pain 1 Occurrences starting 05/01/2022 until 05/31/2023 [facility] Work Phone: Comment on above: 1 Occurrences starting 05/01/2022 until 05/31/2023 End: 09-27-2023 ECG COMPLETE ECG COMPLETE ECG Routine AF (paroxysmal atrial fibrillation) (HCC) Pre-operative clearance 1 Occurrences starting 09/27/2022 until 09/27/2023 [facility] Work Phone: Comment on above: 1 Occurrences starting 09/27/2022 until 09/27/2023 ECG COMPLETE ECG COMPLETE ECG 09/27/2022 12:11 PM EST [facility] ECG COMPLETE [facility] Work Phone: Comment on above: Ordered: 08/13/2023 Elastase.pancreatic [Presence] in Stool [facility] Glucose [Mass/volume ] in Serum or Plasma [facility] Hematocrit [Volume F raction] of Blood [facility] Hemoglobin [Mass/vol ume] in Blood [facility] Hemoglobin A1c/Hemoglobin.total in Blood HEMOGLOBIN A1C (POC) Lab Routine Type 2 diabetes mellitus with hyperglycemia, with long-term current use of insulin (HCC) Ordered: 05/13/2023 [facility] Work Phone: Comment on above: Ordered: 05/13/2023 Hemoglobin.gastroint estinal.l ower [Presence] in Stool by Immunoassay FECAL OCCULT BLOOD TEST Lab Routine Melanotic stools Ordered: 03/01/2022 [facility] Work Phone: Comment on above: Ordered: 03/01/2022 Hepatic function panel [facility] Lactic acid measurement [facility] Leukocytes [#/volume ] in Blood [facility] Magnesium [Mass/volu me] in Serum or Plasma [facility] End: 02-07-2024 RABIA SCREENING RABIA SCREENING Radiology Routine Encounter for screening mammogram for breast cancer 1 Occurrences starting 01/08/2023 until 02/07/2024 [facility] Work Phone: Comment on above: 1 Occurrences starting 01/08/2023 until 02/07/2024 Mean corpuscular hem oglobin concentration determination [facility] Mean corpuscular hem oglobin determination [facility] Measurement of renal function [facility] End: 01-26-2023 Mri any jt upper extremity w/o contrast matrl MRI SHOULDER WO IVCON LT Radiology DAVEY Fall in home, initial encounter Acute pain of left shoulder 1 Occurrences starting 12/27/2021 until 01/26/2023 [facility] Work Phone: Comment on above: 1 Occurrences starting 12/27/2021 until 01/26/[address] [facility] Neutrophil percent differential count [facility] Nucleic acid assay [facility] Ova OR parasites identification [facility] PAIN PANEL, UR QUANT PAIN PANEL, UR QUANT Lab Routine 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 03/29/2022 4:06 PM EDT [facility] Work Phone: Patient Education [facility] Work Phone: Patient referral [facility] Work Phone: Platelets [#/volume] in Blood [facility] Potassium [Moles/vol ume] in Serum or Plasma [facility] Protein measurement [facility] End: 03-01-2023 PVR ANK PRESS NIRU VAS LAB PVR ANK PRESS [facility] Vascular Lab STAT Type 2 diabetes mellitus with diabetic neuropathy, with long-term current use of insulin (HCC) Dusky feet 1 Occurrences starting 03/01/2022 until 03/01/2023 [facility] Work Phone: Comment on above: 1 Occurrences starting 03/01/2022 until 03/01/2023 End: 05-01-2023 Radiologic exam chest 2 views XR CHEST 2V FRONTAL/LAT Radiology Routine Itching 1 Occurrences starting 04/01/2022 until 05/01/2023 [facility] Work Phone: Comment on above: 1 Occurrences starting 04/01/2022 until 05/01/[address] study [facility] Red blood cell count [facility] Red cell distributio n width determination [facility] Respiratory pathogen s DNA and RNA 12b panel - Unspecified specimen by SANDRA with probe detection [facility] End: 03-08-2023 Screening mammography bi 2-view breast inc cad RABIA SCREENING Radiology Routine Encounter for screening mammogram for breast cancer 1 Occurrences starting 02/06/2022 until 03/08/2023 [facility] Work Phone: Comment on above: 1 Occurrences starting 02/06/2022 until 03/08/2023 Sodium [Moles/volume ] in Serum or Plasma [facility] SPECIMEN VALIDITY, URINE SPECIME N VALIDITY, URINE Lab Routine 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 03/29/2022 4:06 PM EDT [facility] Work Phone: Total protein measurement [facility] Troponin I measurement [facility] Work Phone: UA DIP, URINE (POC) UA DIP, URIN E (POC) Lab Routine Acute left flank pain Ordered: 05/01/2022 [facility] Work Phone: Comment on above: Ordered: 05/01/2022 Urea nitrogen [Mass/ volume] in Serum or Plasma [facility] Immunizations Immunization Date Immunization Notes Care Provider Leighton dawson 06-13-2023 influenza (HD-IIV4) vaccine, age 65+ yr, high dose, quadrivalent, PF (FLUZONE HIGH-DOSE) Nanda Oliveira MD Work Phone: [facility] 06-13-2023 influenza virus vaccine, unspecified formulation No Pcp SHIRT SEWER [facility] 07-04-2022 COVID-19 booster vaccine, age 12+ yr, bivalent (PFIZER-BIONTECH) Nanda Oliveira MD Work Phone: [facility] 07-04-2022 Influenza, high dose seasonal Dr. Dylon Murrieta MD Work Phone: [facility] 07-04-2022 influenza, high dose seasonal, preservative-free Dr. Bhupendra Oliveira Work Phone: [facility] 07-04-2022 influenza, high-dose , quadrivalent vaccine (FLUZONE HIGH DOSE QUADRIVALENT) Nanda Oliveira MD Work Phone: [facility] 07-04-2022 influenza virus vaccine, unspecified formulation Nanda Oliveira MD Work Phone: [facility] 11-13-2021 COVID-19 original vaccine, age 12+ yr, monovalent (PFIZER-BIONTECH - LINCOLN TOP) Nanda Oliveira MD Work Phone: [facility] Work Phone: 11-13-2021 COVID-19 vaccine, ag e 12+ yr (PFIZER-BIONTECH - PURPLE TOP) Nanda Oliveira MD Work Phone: [facility] 08-24-2021 influenza, high-dose , quadrivalent vaccine (FLUZONE HIGH DOSE QUADRIVALENT) Nanda Oliveira MD Work Phone: [facility] 02-08-2021 pneumococcal polysaccharide vaccine, 23 valent Nanda Oliveira MD Work Phone: [facility] 12-21-2020 Covid (Pfizer) [facility] 11-30-2020 Covid (Pfizer) [facility] 07-29-2020 influenza, injectabl e, quadrivalent, preservative free Dr. Bhupendra Oliveira Work Phone: [facility] 07-29-2020 influenza, seasonal, injectable [facility] 07-29-2020 influenza, seasonal, injectable, preservative free Nanda Oliveira MD Work Phone: [facility] Work Phone: 08-05-2019 influenza, injectabl e, quadrivalent, contains preservative Nanda Oliveira MD Work Phone: [facility] 07-26-2019 Influenza virus vaccine [facility] 07-26-2019 influenza, seasonal, injectable, preservative free Nanda Oliveira MD Work Phone: [facility] Work Phone: 06-22-2018 influenza, injectabl e, quadrivalent, preservative free Dr. Bhupendra Oliveira Work Phone: [facility] 06-22-2018 influenza, seasonal, injectable [facility] 06-22-2018 influenza, seasonal, injectable, preservative free Nanda Oliveira MD Work Phone: [facility] Work Phone: 06-03-2018 influenza, injectabl e, quadrivalent, contains preservative Nanda Oliveira MD Work Phone: [facility] 06-23-2017 Influenza virus vaccine [facility] 06-23-2017 influenza, seasonal, injectable, preservative free Nanda Oliveira MD Work Phone: [facility] Work Phone: 06-19-2017 influenza, injectabl e, quadrivalent, contains preservative Nanda Oliveira MD Work Phone: [facility] 01-14-2017 zoster vaccine, live Shiraz Oliveira MD Work Phone: [facility] Work Phone: 10-02-2016 tetanus toxoid, redu elza diphtheria toxoid, and acellular pertussis vaccine, adsorbed Nanda Oliveira MD Work Phone: [facility] 08-28-2016 influenza, injectabl e, quadrivalent, preservative free Dr. Bhupendra Oliveira Work Phone: [facility] 08-28-2016 influenza, seasonal, injectable [facility] 08-28-2016 influenza, seasonal, injectable, preservative free Nanda Oliveira MD Work Phone: [facility] Work Phone: 07-16-2015 influenza nasal, unspecified formulation Nanda Oliveira MD Work Phone: [facility] Work Phone: 07-16-2015 influenza virus vaccine, whole virus Nanda Oliveira MD Work Phone: [facility] Work Phone: 07-16-2015 influenza, seasonal, injectable Nanda Oliveira MD Work Phone: [facility] 06-21-2015 influenza, injectabl e, quadrivalent, preservative free Dr. Bhupendra Oliveira Work Phone: [facility] 06-21-2015 influenza, seasonal, injectable [facility] 06-21-2015 influenza, seasonal, injectable, preservative free Nanda Oliveira MD Work Phone: [facility] Work Phone: 02-27-2015 pneumococcal conjuga te vaccine, 13 valchintan Oliveira MD Work Phone: [facility] Work Phone: 07-04-2014 influenza nasal, unspecified formulation Nanda Oliveira MD Work Phone: [facility] Work Phone: 07-04-2014 influenza, seasonal, injectable Nanda Oliveira MD Work Phone: [facility] 07-14-2013 Influenza virus vaccine [facility] 07-14-2013 influenza, seasonal, injectable, preservative free Nanda Oliveira MD Work Phone: [facility] Work Phone: 09-22-2011 pneumococcal polysaccharide vaccine, 23 valchintan Oliveira MD Work Phone: [facility] 09-22-2011 Pneumococcal Vaccine [facility] Work Phone: 09-22-2011 pneumococcal vaccine , unspecified formulation Dr. Bhupendra Oliveira Work Phone: [facility] 06-22-2010 pneumococcal polysaccharide vaccine, 23 valchintan Oliveira MD Work Phone: [facility] Work Phone: 01-06-2008 pneumococcal conjuga te vaccine, 7 valchintan Oliveira MD Work Phone: [facility] Work Phone: 01-06-2008 pneumococcal Conjuga te, unspecified formulation Nanda Oliveira MD Work Phone: [facility] Work Phone: Payers Date Payer Category Payer Self-pay [id number] 2022 Private Health Insurance 103 [id number] 2022 Medicare UHC MEDICARE UHC DUAL COMPLETE HMO POS SNP [id number] 2022-[facility] [phone] [address] [place] [address] Medicare [id number] 2022 Unknown [id number] 2015 Medicaid [facility] MEDICAID MYC ARE [facility] MEDICAID [id number] 2015-Present [phone] [address] [place] [address] Medicaid [id number] 2015 Medicaid [id number] 2015 Medicare [id number] 1955 Unknown [id number] [id number] 27 1955 Unknown [id number] 2.16.840.1.933160.3.579.2.6 27 1955 Unknown [id number] 2.16.840.1.203287.3.579.2.6 27 1955 Unknown [id number] 2.16.840.1.104054.3.579.2.5 94 1955 Unknown [id number] 2.16.840.1.772933.3.579.2.4 79 1955 Unknown [id number] 2.16.840.1.867454.3.579.2.6 51 1955 Unknown [id number] 2.16.840.1.479940.3.579.2.6 51 1955 Unknown [id number] 2.16.840.1.140276.3.579.2.6 51 Medicare [id number] Unknown [id number] 2.16.840.1.668659.3.579.2.4 62 Unknown [id number] 2.16.840.1.447990.3.579.2.4 62 Unknown [id number] 2.16.840.1.423365.3.579.2.4 62 Unknown [id number] 2.16.840.1.213337.3.579.2.4 62 Unknown [id number] 2.16.840.1.169715.3.579.2.4 62 Unknown [id number] 2.16.840.1.503873.3.579.2.4 62 Unknown [id number] 2.16.840.1.115138.3.579.2.4 62 Unknown [id number] 2.16.840.1.916713.3.579.2.4 62 Unknown [id number] 2.16.840.1.845115.3.579.2.4 62 Unknown [id number] 2.16.840.1.618661.3.579.2.4 62 Unknown [id number] 2.16.840.1.206518.3.579.2.4 62 Unknown [id number] 2.16.840.1.355797.3.579.2.4 62 Unknown [id number] 2.16.840.1.695906.3.579.2.4 62 Unknown [id number] 2.16.840.1.321728.3.579.2.4 62 Social History Date Type Detail Facility Start: 12-23-2021 End: 08-13-2023 Tobacco smoking status [facility] Unknown if ever smoked [facility] Start: 12-13-2020 None [facility] Start: 06-05-2021 Homeless [facility] Start: 06-05-2021 Non-smoker [facility] Start: 1955 Sex Assigned At Female [facility] Start: 01-06-2017 End: 06-04-2022 Tobacco smoking status NHIS Ex-smoker [facility] Start: 1978 End: 09-22-2005 History of tobacco use Current smoker [facility] Start: 1978 End: 09-22-2005 History of tobacco use Cigarette Smoker [facility] Start: 11-23-2021 End: 10-28-2024 Alcohol intake Current non-drinker of alcohol (finding) [facility] Start: 01-06-2017 End: 06-04-2022 Tobacco Comment Father smoked in childhood. 2nd spouse smoked in home. [facility] Start: 1955 Sex Assigned At Not on file [facility] Start: 12-10-2021 End: 07-11-2022 Exposure to SARS-CoV-2 (event) Not sure [facility] Start: 01-06-2017 End: 10-28-2024 Cigarettes smoked current (pack per day) - Reported 1 [facility] Start: 01-06-2017 End: 10-28-2024 Tobacco use and exposure Smokeless tobacco non-user [facility] Work Phone: Start: 04-03-2023 End: 10-28-2024 Tobacco use panel [facility] Adult Depression Screening Assessment 0 [facility] Start: 10-28-2024 End: 01-03-2025 Tobacco smoking status NHIS Smokes tobacco daily [facility] Start: 12-05-2024 Sex Female (finding) [facility] Start: 06-19-2025 Tobacco smoking stat us FLIS Current Light tobacco smoker [facility] NEGATED: Highlighted row [facility] Medical Equipment Procedure Code Equipment Code Equipment Original Text Equipment Identifier Dates ERCP (endoscopic retrograde cholangiopancreato graphy) FDA Start: 08-16-2023 ERCP (endoscopic retrograde cholangiopancreato graphy) FDA Start: 08-16-2023 ERCP (endoscopic retrograde cholangiopancreato graphy) FDA Start: 08-16-2023 ERCP (endoscopic retrograde cholangiopancreato graphy) FDA Start: 08-16-2023 ERCP (endoscopic retrograde cholangiopancreato graphy) FDA Start: 08-16-2023 ERCP (endoscopic retrograde cholangiopancreato graphy) STENT,RX PLASTIC BILIARY 10X9 FDA Start: 08-16-2023 ERCP (endoscopic retrograde cholangiopancreato graphy) STENT,RX PLASTIC BILIARY 10X9 FDA Start: 08-16-2023 ERCP (endoscopic retrograde cholangiopancreato graphy) FDA Start: 08-16-2023 ERCP (endoscopic retrograde cholangiopancreato graphy) STENT,RX PLASTIC BILIARY 10X9 FDA Start: 08-16-2023 ERCP (endoscopic retrograde cholangiopancreato graphy) STENT,RX PLASTIC BILIARY 10X9 FDA Start: 08-16-2023 ERCP (endoscopic retrograde cholangiopancreato graphy) STENT,RX PLASTIC BILIARY 10X9 FDA Start: 08-16-2023 ERCP (endoscopic retrograde cholangiopancreato graphy) STENT,RX PLASTIC BILIARY 10X9 FDA Start: 08-16-2023 [id number], [id number], [id number], [id number], [id number] Start: 12-16-2018 End: 07-25-2023 Comment on above: USE DIRECTED TO C HECK BLOOD SUGAR 4-5 TIMES DAILY, E11.9 USE DIRECTED. TO INJECT INSULINS USE TO CHECK BLOOD S UGAR 4-5 TIMES DAILY, E11.9 Test blood sugar(s) up to 4 times daily. Dx: Type 2 DM - Uncontrolled E11.65 Insulin: Yes Freestyle Kira compatible test strips Test blood sugar(s) 4 times daily. Dx: Type 2 DM - Uncontrolled E11.65 Insulin: Yes [id number] FDA Start: 08-05-2022 ()[id number] FDA Start: 08-05-2022 ([id number]) ()[id number] FDA Start: 08-05-2022 ([id number]) ()[id number] FDA Start: 12-18-2022 [id number] FDA Start: 06-04-2023 Goals Date Patient Goal Desired Activity /State Personal health goal Personal health goal Personal health goal Functional Status Date Assessment Result Facility 08-20-2023 Functional status Ambulates;Chair [facility] Work Phone: 06-05-2023 Functional status Ambulates [facility] Work Phone: 12-20-2022 Functional status Ambulates [facility] Work Phone: 11-07-2022 Functional Status Sensory Deficits None [facility] 08-08-2022 Functional status Bedside Commode [facility] Work Phone: Mental Status Date Assessment Result Facility 12-04-2024 Cognitive function Level Of Cons ciousness Awake;Alert;Appropriate;Follow s Commands [facility] Work Phone: 01-26-2024 Cognitive function Level Of Cons ciousness Follows Commands;Drowsy [facility] Work Phone: 01-26-2024 Cognitive function Voice/Name [facility] Work Phone: 11-27-2023 Cognitive function Sedated [facility] Work Phone: 11-27-2023 Cognitive function Voice/Name [facility] Work Phone: 08-20-2023 Cognitive function Voice/Name [facility] Work Phone: 08-13-2023 Cognitive function Awake;Alert;A ppropriate;Follow s Commands [facility] Work Phone: 06-10-2023 Cognitive function Awake;Alert;A ppropriate;Follow s Commands [facility] Work Phone: 06-05-2023 Cognitive function Voice/Name [facility] Work Phone: 04-23-2023 Cognitive function Voice/Name [facility] Work Phone: 01-14-2023 Cognitive function Awake;Alert;A ppropriate;Follow s Commands [facility] Work Phone: 12-20-2022 Cognitive function Voice/Name [facility] Work Phone: 08-08-2022 Cognitive function Voice/Name [facility] Work Phone: Clinical Notes 11-21-2003 to 06-19-2025 Note Date & Type Note Facility 06-19-[address] [facility] 06-19-2025 Radiology Diagnostic study note [facility] Imaging [place] [address] Spine Cervical without Contras MR#: [id number] Acct: [id number] Name: TAMIA PANDA Rep #: [id number] : [id number] F 70 From: Hari Gonzales MD PCP: Dr. Dylon Murrieta MD Status: REG E R Study:Spine Cervical without Contras Date of Exam: 06/19/25 Exam# [id number] Ordering Dr: Jennifer Hodge MD PROCEDURE: SPINE CERVICAL WITHOUT CONTRAS 06/19/2025 REASON FOR EXAM: FALL TECHNIQUE: Procedure Code: CTSPC Modality: CT Procedure: SPINE CERVICAL WITHOUT CONTRAS Coronal and Sagittal reconstruction series were provided. One or more dose reduction techniques were used (e.g., Automated exposure control, adjustment of the mA and/or kV according to patient size, use of iterative reconstruction technique. RADIATION DOSE SUMMARY: DLP: 1126.70 mGycm COMPARISON: None available. FINDINGS: The visualized posterior fossa contents appear within normal limits for the patient's stated age. The normal cervical lordosis is maintained. The atlantooccipital and atlantoaxial joints appear normally aligned. The atlas and axis are intact. The remaining cervical vertebral bodies are normal in height. The cervical vertebral bodies are normal in alignment.There is no evidence of focal lytic or sclerotic lesion in the cervical spine. There is no prevertebral soft tissue swelling. Degenerative changes of the cervical spine including central disc protrusions, facet arthrosis, and uncovertebral spurring. Moderate spinal canal stenosis at C3-C4. Moderate neural foraminal stenosis at multiple levels including C3-C4 and C4-C5. CT/Spine Cervical without Contras IMPRESSION: No acute fracture or dislocation in the cervical spine. Reading Location: [facility] CC: Dr. Avinash Hodge MD; Dr. Dylon Murrieta MD ~ Reporting Coordinator: Signed [facility] 06-19-2025 Radiology Diagnostic study note [facility] Imaging Services [address] [place] [address] HIP, UNI W/ Pelvis 2-3 Views MR#: [id number] Acct: [id number] Name: TAMIA PANDA Rep #: [id number] : 1955 F 70 From: Cooper Naranjo DO PCP: Dr. Dylon Murrieta MD Status: REG E R Study:HIP, UNI W/ Pelvis 2-3 Views Date of Ex am: 06/19/25 Exam# [id number] Ordering Dr: Jennifer Hodge MD PROCEDURE: HIP, UNI W/ PELVIS 2-3 VIEWS 06/19/2025 REASON FOR EXAM: FALL TECHNIQUE: Procedure Code: RAD Modality: DX Procedure: HIP, UNI W/ PELVIS 2-3 VIEWS Laterality: Left COMPARISON: AP pelvis and left hip study dated 12/18/2022, 08/05/2022, and 12/24/2021 FINDINGS: Bones: Diffuse osteopenia of the lower lumbar spine, bony pelvis and both hips are noted. A radiopaque intramedullary kaylan and screws are present through the proximal leftfemur. There is no fracture or loosening of the radiopaque hardware. Please note that the most distal portion of the hardware isnot included on this study. The femoral fracture appears to be in near anatomic alignment. No acute fractures are noted. Degenerative changes of the lower lumbar spine are noted. Joints: SI joints are unremarkable.. Pubic symphysis is unremarkable. Very mild arthritic changes are seen involving the right hip. Very mild arthritic changes are seen involving the left hip. Multiple surgical janel and clips are projected over the lower abdomen and pelvic region and are similar when compared to the prior exam. Reading Location: [facility] CC: Dr. Avinash Hodge MD; Dr. Dylon Murrieta MD ~ Reporting Coordinator: Signed [facility] 06-19-2025 Radiology Diagnostic study note [facility] Imaging Services [address] [place], [place] [id number] Brain/Head without Contrast MR#: [id number] Acct: [id number] Name: TAMIA PANDA Rep #: [id number] : 1955 F 70 From: Hari Gonzales MD PCP: Dr. Dylon Murrieta MD Status: REG E R Study:Brain/Head without Contrast Date of Exa m: 06/19/25 Exam# [id number] Ordering Dr: Jennifer Hodge MD PROCEDURE: BRAIN/HEAD WITHOUT CONTRAST 06/19/2025 REASON FOR EXAM: TRAUMA TECHNIQUE: Procedure Code: CTBR Modality: CT Procedure: BRAIN/HEAD WITHOUT CONTRAST Coronal and Sagittal reconstruction series were provided. One or more dose reduction techniques were used (e.g., Automated exposure control, adjustment of the mA and/or kV according to patient size, use of iterative reconstruction technique. RADIATION DOSE SUMMARY: DLP: 1126.7 mGycm COMPARISON: CT head 08/03/2022 FINDINGS: No acute hemorrhage. No acute transcortical infarct. No significant mass effect or brain herniation. Global cerebral volume loss. Hydrocephalus. No extra-axial fluid collection. The basal cisterns are patent. Under pneumatization and sclerosis of the right mastoid air cells. The left mastoid air cells are clear. Near-complete opacification of the frontal sinuses. Scattered paranasal mucosal thickening. Nasal septal perforation. Postsurgical changes in the paranasal sinuses. The calvarium appears intact. Left frontal scalp hematoma. CT/Brain/Head without Contrast IMPRESSION: No CT evidence of acute intracranial hemorrhage, transcortical infarct, or significant mass effect. Left frontal scalp hematoma. Paranasal sinus disease. Reading Location: [id number] CC: Dr. Avinash Hodge MD; Dr. Dylon Murrieta MD ~ Reporting Coordinator: Signed [facility] 06-19-2025 Discharge summary Note Date/Time June 19, 2025 5:23pm [facility] Medical Records Department [facility] [place] [address] Emergency Department Summary 06/19/25 MR#: [id number] Acct: [id number] Name: TAMIA PANDA Rep #:[id number] : 1955 70 From: Avinash Hodge MD PCP: Dr. Dylon Murrieta MD Status:DEP E R Location: ED HPI HPI - Fall History of Present Illness Chief Complaint: Fall Informant: patient Occured/Mechanism Occurred: Today Mechanism/Context: Yes same level fall and Yes trip Usually ambulates: Without assistance Pain/Injury Pain Location: head, neck and lower extremity (Left hip.) Quality of Pain: Dull and Aching Current Severity: Mild Maximum Severity: Mild Associated Symptoms Associated Symptoms: Negative for Parasthesias, Weakness, Loss of function, Inability to ambulate, Loss of consciousness or Amnesia Narrative Narrative: 70-year-old female history of diabetes, A-fib on Eliquis, chronic kidney disease, COPD. Tripped and fell at home and her feet were tangled in her close fell to carpeted floor striking her left forehead. Complaining of pain to her head, neck and left hip. States she has chronic left hip pain. Denies any LOC. Denies any recent illness. She does live alone at home with her dog. Prior similar symptoms: No Recent Illness/Hospitalization: No PFSH PFSH Medical History ESBL (extended spectrum beta-lactamase) producing bacteria infection Community acquired pneumonia Pneumonia COPD exacerbation Open wound Chronic kidney disease (CKD) History of echocardiogram History of atrial fibrillation Vertigo Wears hearing aid Wears dentures Wears glasses Post-menopausal Cancer Anxiety Tinnitus Thyroid disease Insulin dependent diabetes mellitus Diabetes Uses wheelchair Walker as ambulation aid Arthritis History of renal disease Anemia High cholesterol Pulmonary embolism DVT (deep venous thrombosis) Excessive bleeding Back pain Injury of back Migraine headache Difficulty swallowing History of diverticulitis Gastroparesis History of IBS Gastric reflux Former smoker Sleep apnea On home oxygen therapy Diabetic neuropathy History of edema History of Holter monitoring History of stress test History of CHF (congestive heart failure) History of heart attack Cardiology follow-up encounter Paroxysmal atrial fibrillation Chronic kidney disease (CKD) stage G3b/A1, moderately decreased glomerular filtration rate (GFR) between 30-44 mL/min/1.73 square meter and albuminuria creatinine ratio less than 30 mg/g Anxiety Closed intertrochanteric fracture of left femur Fall at home Broken rib Pulmonary hypertension Gastroparesis Presence of stent in coronary artery (~12/07/03) Mixed hyperlipidemia History of cervical cancer DDD (degenerative disc disease) Lung nodule RLS (restless legs syndrome) Pulmonary embolism History of DVT (deep vein thrombosis) Atherosclerotic heart disease of [place] coronary artery without angina pectoris Essential hypertension Paroxysmal A-fib Diabetes mellitus type 2 in obese PARESH (obstructive sleep apnea) Chronic respiratory insufficiency COPD (chronic obstructive pulmonary disease) GERD (gastroesophageal reflux disease) Hypothyroidism Home Medications ?Medication ?Instructions ?Recorded ?Last Taken ?Type atorvastatin 40 mg tablet 40 mg PO QHS CHOLESTEROL LOW ERING 02/03/18 03/01/24 History ascorbic acid (vitamin C) 500 mg 500 mg PO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 81 Respiratory Rate 17 20 H 23 H Blood Pressure 122/82 H 123/93 H 122/92 H Blood Pressure Mean 95 103 102 Pulse Ox 99 98 99 Oxygen Delivery Method Nasal Cannula Nasal Cannula Nasal Cannula Oxygen Flow Rate (L/min) 12/04/24 21:00 12/04/24 22:00 Temperature Temperature Source Pulse Rate 69 74 Respiratory Rate 17 18 Blood Pressure 135/70 H 144/96 H Blood Pressure Mean 91 112 Pulse Ox 100 99 Oxygen Delivery Method Nasal Cannula Nasal Cannula Oxygen Flow Rate (L/min) 6 MDM <MORGAN Lozano - Last Filed: 12/04/24 21:48> MDM MDM Narrative Medical decision making narrative: 69-year-old female has first and second-degree facial stallworth to her nose and cheeks from smoking a cigarette while wearing her chronic 3 L nasal cannula oxygen for COPD. She has soot and swelling in her nostrils but no stallworth in her mouth and is breathing easily. She is wearing her nasal cannula oxygen in her mouth as well. Vital signs show elevated heart rate of 114 and she is in A-fib RVR. I reviewed her medications and questioned her and she states she forgot totake her metoprolol this evening so I ordered p.o. metoprolol to tartrate 50 mg. Cardiac workup ordered. EKG is A-fib RVR around 119. Serial troponins are 16,18, delta pending. CXR shows no acute process. Notes she could have the beginning of pulmonary edema but she is on her baseline oxygen is no clinical signs of fluid overload. Since her arrival she has not had further chest pain in the emergency department. I have personally performed a face to face assessment of the patient and have reviewed the SORAYA Note. I performed a substantive portion of the visit including all aspects of the following. My meza findings include: History is 69-year-old female was seen earlier today the [facility] being transported to [facility] for facial stallworth and and route developed lower sternal chest pain. It is since resolved. Patient is on Eliquis due to history of A-fib and prior blood clots. Go Exam is [well-appearing 69-year-old female. Vital signs are stable she is in A- fib and tachycardic. After he rate around 110. Pulse ox is 97% on oxygen she is typically on oxygen. H EENT exam pupils round reactive light. She has secondary stallworth around her mouth. No trouble breathing or swallowing. No soot. Neck nontender. Lungs clear equal and symmetrical bilaterally. Heart A-fib rate about 100 220. Irregular. Chest wall nontender. Abdomen soft nondistended normal bowel sounds without peritoneal signs. She has a incisional hernia. It easily reduces. Moving all 4 extremities. Nontender. No cords. Calves nontender. Neurologically she is awake and alert.] Medical Decision Making [69-year-old female with chest pain is since resolved to undergo cardiac workup.] Other additions or changes: [None] Lab Data Attestation: I reviewed the patient's lab results. Labs: Laboratory Results - last 24 hr 12/04/24 12/04/24 12/04/24 15:19 17:35 21:47 WBC 8.1 RBC 4.11 L Hgb 12.9 Hct 39.9 MCV 97.1 MCH 31.4 MCHC 32.3 RDW Std Deviation 47.1 H RDW Coeff of Aubrey 13.2 Plt Count 181 MPV 10.4 Immature Gran % (Auto) 0.500 Neut % (Auto) 76.4 H Lymph % (Auto) 11.9 L Winn % (Auto) 7.9 Eos % (Auto) 3.2 Baso % (Auto) 0.1 Absolute Neuts (auto) 6.2 Absolute Lymphs (auto) 0.96 Nucleated RBC % 0 Sodium 144 Potassium 3.3 Chloride 107 Carbon Dioxide 23.9 Anion Gap 12 BUN 9 Creatinine 0.89 Estim Creat Clear Calc 60.09 Est GFR (MDRD) Non-Af 71 BUN/Creatinine Ratio 10.6 Glucose 112 H Calcium 8.4 Troponin T High Sens 16 H Troponin T Hi Sens 2 Hr 18 H Troponin T Hi Sens 4Hr 18 H Radiography Diagnostic Testing: Clinical Impression(s) from Imaging Studies Chest X-Ray 12/04/24 15:53 IMPRESSION: Cardiac enlargement. No focal infiltrate is identified. Incipient pulmonary edema. Reading Location: [facility] ED attending interpretation 1 view chest x-ray shows cardiomegaly, no acute infiltrate. EKG Initial EKG: Attestation: I personally reviewed and interpreted this EKG as follows: Comments: A-fib RVR at 119 bpm Left axis deviation slight ST depressions V3 through V6 <Dr. Avinash Hodge MD - Last Filed: 12/04/24 22:59> [facility] MDM Narrative Medical decision making narrative: 69-year-old female has first and second-degree facial stallworth to her nose and cheeks from smoking a cigarette while wearing her chronic 3 L nasal cannula oxygen for COPD. She has soot and swelling in her nostrils but no stallworth in her mouth and is breathing easily. She is wearing her nasal cannula oxygen in her mouth as well. Vital signs show elevated heart rate of 114 and she is in A-fib RVR. I reviewed her medications and questioned her and she states she forgot to take her metoprolol this evening so I ordered p.o. metoprolol to tartrate 50 mg. Cardiac workup ordered. EKG is A-fib RVR around 119. Serial troponins are 16, 18, delta pending. CXR shows no acute process. Notes she could have the beginning of pulmonary edema but she is on her baseline oxygen is no clinical signs of fluid overload. Since her arrival she has not had further chest pain in the emergency department. I have personally performed a face to face assessment of the patient and have reviewed the SORAYA Note. I performed a substantive portion of the visit including all aspects of the following. My meza findings include: History is 69-year-old female was seen earlier today the [facility] was being transported to [facility] for facial stallworth and and route developed lower sternal chest pain. It is since resolved. Patient is on Eliquis due to history of A-fib and prior blood clots. Go Exam is [well-appearing 69-year-old female. Vital signs are stable she is in A- fib and tachycardic. After he rate around 110. Pulse ox is 97% on oxygen she is typically on oxygen. H EENT exam pupils round reactive light. She has secondary stallworth around her mouth. No trouble breathing or swallowing. No soot. Neck nontender. Lungs clear equal and symmetrical bilaterally. Heart A-fib rate about 100 220. Irregular. Chest wall nontender. Abdomen soft nondistended normal bowel sounds without peritoneal signs. She has a incisional hernia. It easily reduces. Moving all 4 extremities. Nontender. No cords. Calves nontender. Neurologically she is awake and alert.] Medical Decision Making [69-year-old female with chest pain is since resolved to undergo cardiac workup.] Other additions or changes: [Repeat exam patient is doing well at 10:55 PM. Complaining of mild pain to her facial stallworth and a headache. Should be given for morphine. Her A-fib RVR is well-controlled currently in the 80s. Initially she was being transferred from [facility] to [facility]. She had diverted here because of her chest discomfort. She will now be sent [facility] burn unit.] History & Record Review Discussion w/independent historian: Patient Lab Data Lab results narrative: CBC white count 8.1. H&H 12 and 39. Platelets 181. Electrolytes show a gap of 12. BUN of 9 creatinine 0.8. Glucose 112. Initial troponin 16. 2-hour troponin 18. 4-hour troponin 18 also. Chest x-ray chronic changes. Cardiomegaly. No acute process. Labs: Laboratory Results - last 24 hr 12/04/24 12/04/24 12/04/24 15:19 17:35 21:47 WBC 8.1 RBC 4.11 L Hgb 12.9 Hct 39.9 MCV 97.1 MCH 31.4 MCHC 32.3 RDW Std Deviation 47.1 H RDW Coeff of Aubrey 13.2 Plt Count 181 MPV 10.4 Immature Gran % (Auto) 0.500 Neut % (Auto) 76.4 H Lymph % (Auto) 11.9 L Winn % (Auto) 7.9 Eos % (Auto) 3.2 Baso % (Auto) 0.1 Absolute Neuts (auto) 6.2 Absolute Lymphs (auto) 0.96 Nucleated RBC % 0 Sodium 144 Potassium 3.3 Chloride 107 Carbon Dioxide 23.9 Anion Gap 12 BUN 9 Creatinine 0.89 Estim Creat Clear Calc 60.09 Est GFR (MDRD) Non-Af 71 BUN/Creatinine Ratio 10.6 Glucose 112 H Calcium 8.4 Troponin T High Sens 16 H Troponin T Hi Sens 2 Hr 18 H Troponin T Hi Sens 4Hr 18 H Radiography Chest X-Ray - ED: 1 View, Read by ED Physician, Read by Radiologist, Lungs, Mediastinum, Bony Structures, No Acute Disease, Chronic Changes and Cardiomegaly Diagnostic Testing: Clinical Impression(s) from Imaging Studies Chest X-Ray 12/04/24 15:53 IMPRESSION: Cardiac enlargement. No focal infiltrate is identified. Incipient pulmonary edema. Reading Location: [facility] Rhythm Strip Rhythm Strip: A-fib Rate: 119 Ectopy: None Discharge Plan Triage Chief Complaint: Chest Pain ED Midlevel Provider: Lynne Le ED Provider: Avinash Hodge Dx/Rx/DC Orders Clinical Impression: Atrial fibrillation with RVR, Chest pain, Burn of face, second degree Prescriptions: No Action buspirone 10 mg tablet 10 mg PO BID Patient Comments: PER PHARMACY PT TAKES 1 TAB (10 MG) IN THE MORNING AND AFTERNOON AND TAKES 1.5 TAB (15 MG) IN THE EVENING Rx Instructions: PER PHARMACY PT TAKES 1 TAB (10 MG) IN THE MORNING AND AFTERNOON AND TAKES 1.5 TAB (15 MG) IN THE EVENING atorvastatin 40 MG tablet 40 mg PO QHS Patient Comments: cholesterol duloxetine 60 mg capsule,delayed release(DR/EC) 60 mg PO DAILY Patient Comments: mental health ascorbic acid (vitamin C) 500 MG tablet 500 mg PO DAILY@1700 Patient Comments: Supplement albuterol sulfate 90 mcg/actuation HFA aerosol inhaler 2 puff INHALATION PRN PRN (Reason: COPD) buspirone 10 mg tablet 15 mg PO QHS Patient Comments: PER PHARMACY PT TAKES 1 TAB (10 MG) IN THE MORNING AND AFTERNOON AND TAKES 1.5 TAB (15 MG) IN THE EVENING Rx Instructions: PER PHARMACY PT TAKES 1 TAB (10 MG) IN THE MORNING AND AFTERNOON AND TAKES 1.5 TAB (15 MG) IN THE EVENING insulin lispro 100 unit/mL insulin pen 14 unit SC LUNCH Qty: 15 0RF Rx Instructions: hold if glucose <100 insulin lispro 100 unit/mL insulin pen 14 unit SC BREAKFAST Qty: 15 0RF Rx Instructions: hold if glucose <100 insulin lispro 100 unit/mL insulin pen 24 unit SC DINNER Qty: 15 0RF Rx Instructions: hold if glucose <100 omeprazole 40 mg capsule,delayed release(DR/EC) 40 mg PO DAILY insulin glargine [Lantus Solostar U-100 Insulin] 100 unit/mL (3 mL) insulin pen 58 - 60 unit SC BID levothyroxine [Euthyrox] 88 mcg tablet 88 mcg PO DAILY metoprolol tartrate 50 mg tablet 50 mg PO BID nitroglycerin 0.4 mg tablet, sublingual 0.4 mg sublingual Q5-15M PRN (Reason: chest pain) Qty: 25 3RF Eliquis 5 mg tablet 5 mg PO BID Qty: 60 11RF amlodipine 5 mg tablet 5 mg PO DAILY Qty: 30 11RF Primary Care Provider: Dylon Murrieta Chi Referrals: Dylon Murrieta Chi, MD [Primary Care Provider] - Print Language: Samoan Disposition Disposition: Acute Care Hospital What to do if you have Problems For any increased pain, shortness of breath, bleeding, nausea or vomiting, chestpain, or any unexpected problems, contact your Primary Care Provider. Call [facility] ([phone]) or report to the closest Emergency Room. Call 911 if necessary. 12/04/[id number] <Electronically signed by Lynne MORA> Cosigner Signature (if applicable): 12/04/[id number] <Electronically signed by Avinash Hodge MD> CC: Dr. Dylon Murrieta MD ~ Signed [facility] Work Phone: [phone] Discharge summary [facility] Medical Records Department [address] [place] [address] Emergency Department Summary 12/04/24 MR#: [id number] Acct: [id number] Name: TAMIA PANDA Rep #:[id number] : 1955 69 From: Lynne MORA PCP: Dr. Dylon Murrieta MD Status:REG E R Location: ED HPI History of Present Illness Chief Complaint: Chest Pain Narrative Narrative: 69-year-old female with PMH of HTN, HLD, DM2, CAD, COPD on 3 L with smoking while wearing her nasalcannula oxygen this morning and sustained facial stallworth to her nose and cheeks. [facility] being [facility] to [facility] by EMS when she started complaining of chest pain so was diverted here for evaluation. She states it nancy dull ache in the center of her chest. There is no radiation. No increased shortness of breath or nausea or vomiting. No recent fever or increased cough or sputum production. She takes metoprolol 50 mg and Eliquis 5 mg twice daily and states she forgot her morning dose today, but has otherwise been compliant. [facility] Medical History ESBL (extended spectrum beta-lactamase) producing bacteria infection Community acquired pneumonia Pneumonia COPD exacerbation Open wound Chronic kidney disease (CKD) History of echocardiogram History of atrial fibrillation Vertigo Wears hearing aid Wears dentures Wears glasses Post-menopausal Cancer Anxiety Tinnitus Thyroid disease Insulin dependent diabetes mellitus Diabetes Uses wheelchair Walker as ambulation aid Arthritis History of renal disease Anemia High cholesterol Pulmonary embolism DVT (deep venous thrombosis) Excessive bleeding Back pain Injury of back Migraine headache Difficulty swallowing History of diverticulitis Gastroparesis History of IBS Gastric reflux Former smoker Sleep apnea On home oxygen therapy Diabetic neuropathy History of edema History of Holter monitoring History of stress test History of CHF (congestive heart failure) History of heart attack Cardiology follow-up encounter Paroxysmal atrial fibrillation Chronic kidney disease (CKD) stage G3b/A1, moderately decreased glomerular filtration rate (GFR) between 30-44 mL/min/1.73 square meter and albuminuria creatinine ratio less than 30 mg/g Anxiety Closed intertrochanteric fracture of left femur Fall at home Broken rib Pulmonary hypertension Gastroparesis Presence of stent in coronary artery (~12/07/03) Mixed hyperlipidemia History of cervical cancer DDD (degenerative disc disease) Lung nodule RLS (restless legs syndrome) Pulmonary embolism History of DVT (deep vein thrombosis) Atherosclerotic heart disease of [place] coronary artery without angina pectoris Essential hypertension Paroxysmal A-fib Diabetes mellitus type 2 in obese PARESH (obstructive sleep apnea) Chronic respiratory insufficiency COPD (chronic obstructive pulmonary disease) GERD (gastroesophageal reflux disease) Hypothyroidism Home Medications ?Medication ?Instructions ?Recorded ?Last Taken ?Type atorvastatin 40 mg tablet 40 mg PO QHS CHOLESTEROL LOW ERING 02/03/18 03/01/24 History ascorbic acid (vitamin C) 500 mg 500 mg PO DAILY@1700 supplement 05/17/18 03/02/24 History tablet buspirone 10 mg tablet 10 mg PO BID depression 05/2403/02/24 History duloxetine 60 mg capsule,delayed 60 mg PO DAILY MENTAL HEALTH 06/12/22 03/02/24 History release nitroglycerin 0.4 mg sublingual 0.4 mg sublingual Q5-1 5M PRN chest 10/21/22 11/26/23 Rx tablet pain #25 tabs albuterol sulfate 90 mcg/actuation 2 puff inhalation P RN PRN COPD 12/12/22 11/26/23 History aerosol inhaler buspirone 10 mg tablet 15 mg PO QHS 06/03/23 History insulin lispro 100 unit/mL 14 unit (0.14 mL) subcut BR EAKFAST 08/20/23 03/02/24 Rx subcutaneous pen DIABETES #15 mL insulin lispro 100 unit/mL 14 unit (0.14 mL) subcut AAYUSH [facility] 08/20/23 03/02/24 Rx subcutaneous pen DIABETES #15 mL insulin lispro 100 unit/mL 24 unit (0.24 mL) subcut DI NNER 08/20/23 03/01/24 Rx subcutaneous pen DIABETES #15 mL insulin glargine 100 unit/mL (3 58 - 60 unit subcut BI D DM 11/25/23 03/02/24 History mL) subcutaneous pen (Lantus Solostar U-100 Insulin) omeprazole 40 mg capsule,delayed 40 mg PO DAILY 03/02/24 History release levothyroxine 88 mcg tablet 88 mcg PO DAILY 01/19/24 0 03/02/24 History (Euthyrox) metoprolol tartrate 50 mg tablet 50 mg PO BID 03/02/24 03/02/24 History apixaban 5 mg tablet (Eliquis) 5 mg PO BID #60 tabs Unknown Rx amlodipine 5 mg tablet 5 mg PO DAILY for blood pres sure 08/31/24 Unknown Rx #30 TABLETS Allergy/AdvReac Type Severity Reaction Status Date / Time metoclopramide (From Reglan) Allergy Intermediate Itching Verified 11/04/24 14:20 ciprofloxacin (From Cipro) Allergy Hives Verified 11/04/24 14:20 latex Allergy stallworth me Verified 11/04/24 14:20 niacin (From Niaspan Allergy Hives Verified 11/04/24 14:20 Extended-Release) ranolazine (From Ranexa) Allergy Itching Verified 11/04/24 14:20 orphenadrine AdvReac Mild PT UNABLE Verified 11/04/24 14:20 TO RESPOND-NEEDS F/U adhesive tape AdvReac Other Verified 11/04/24 14:20 orphenadrine citrate (From AdvReac groggy Verified 11/04/24 14:20 Norgesic) Family History Mother CAD (coronary artery disease) Father CAD (coronary artery disease) Brother CAD (coronary artery disease) Asthma Sister Hypertension Sister Diabetes Sister Heart disease Surgical History History of hip surgery History of coronary artery stent placement (06/04/23) History of cardiac catheterization Hx of surgical procedure Presence of coronary angioplasty implant and graft (~12/07/03) History of left heart catheterization (LHC) (~09/28/19) History of surgery on wrist History of tubal ligation History of nasal surgery History of knee surgery History of hernia repair History of cholecystectomy History of total abdominal hysterectomy Social History Smoking Status: Current every day smoker tobacco type: cigarettes quit status: has quit before alcohol intake: never substance use type: does not use caffeine: Yes Type: coffee Number of servings: 1 ROS ROS ED ROS Narrative Constitutional: Negative for fever, chills, malaise. CVS: Positive for chest pain. Negative for palpitations. Respiratory: Negative for shortness of breath. GI: Negative for abdominal pain, nausea, vomiting. EXAM Physical Exam Narrative Exam Narrative: CONST: Patient sitting in no acute distress. EYES: Normal inspection. HEAD: Small area of second-degree stallworth on her nose and cheeks. Airway patent, breathing easily. Wearing nasal cannula in her mouth. NECK: Normal inspection. RESP: No respiratory distress, CTAB. CVS: Regular rate and rhythm, no murmur, no gallop. EXTREMITIES: Normal appearance, no pedal edema. NEURO: Alert and answering questions appropriately. PSYCH: Normal affect. Const Vital Signs: 12/04/24 15:13 12/04/24 15:41 12/04/24 15:47 Temperature 98.0 F Temperature Source Oral Pulse Rate 114 H 92 Respiratory Rate 27 H 18 Blood Pressure 112/73 130/79 H Blood Pressure Mean 86 96 Pulse Ox 86 95 95 Oxygen Delivery Method Room Air Nasal Cannula Nasal Cannula Oxygen Flow Rate (L/min) 6 3 12/04/24 15:50 12/04/24 16:00 12/04/24 17:00 Temperature Temperature Source Pulse Rate 109 H 108 H 101 H Respiratory Rate 23 H 16 20 H Blood Pressure 83/65 L 136/100 H 139/109 H Blood Pressure Mean 71 112 120 Pulse Ox 93 97 98 Oxygen Delivery Method Nasal Cannula Oxygen Flow Rate (L/min) 3 12/04/24 18:00 12/04/24 19:00 12/04/24 20:00 Temperature Temperature Source Pulse Rate 75 79 81 Respiratory Rate 17 20 H 23 H Blood Pressure 122/82 H 123/93 H 122/92 H Blood Pressure Mean 95 103 102 Pulse Ox 99 98 99 Oxygen Delivery Method Nasal Cannula Nasal Cannula Nasal Cannula Oxygen Flow Rate (L/min) 12/04/24 21:00 12/04/24 22:00 Temperature Temperature Source Pulse Rate 69 74 Respiratory Rate 17 18 Blood Pressure 135/70 H 144/96 H Blood Pressure Mean 91 112 Pulse Ox 100 99 Oxygen Delivery Method Nasal Cannula Nasal Cannula Oxygen Flow Rate (L/min) 6 Physical Exam Const Vital Signs: 12/04/24 15:13 12/04/24 15:41 12/04/24 15:47 Temperature 98.0 F Temperature Source Oral Pulse Rate 114 H 92 Respiratory Rate 27 H 18 Blood Pressure 112/73 130/79 H Blood Pressure Mean 86 96 Pulse Ox 86 95 95 Oxygen Delivery Method Room Air Nasal Cannula Nasal Cannula Oxygen Flow Rate (L/min) 6 3 12/04/24 15:50 12/04/24 16:00 12/04/24 17:00 Temperature Temperature Source Pulse Rate 109 H 108 H 101 H Respiratory Rate 23 H 16 20 H Blood Pressure 83/65 L 136/100 H 139/109 H Blood Pressure Mean 71 112 120 Pulse Ox 93 97 98 Oxygen Delivery Method Nasal Cannula Oxygen Flow Rate (L/min) 3 12/04/24 18:00 12/04/24 19:00 12/04/24 20:00 Temperature Temperature Source Pulse Rate 75 79 81 Respiratory Rate 17 20 H 23 H Blood Pressure 122/82 H 123/93 H 122/92 H Blood Pressure Mean 95 103 102 Pulse Ox 99 98 99 Oxygen Delivery Method Nasal Cannula Nasal Cannula Nasal Cannula Oxygen Flow Rate (L/min) 12/04/24 21:00 12/04/24 22:00 Temperature Temperature Source Pulse Rate 69 74 Respiratory Rate 17 18 Blood Pressure 135/70 H 144/96 H Blood Pressure Mean 91 112 Pulse Ox 100 99 Oxygen Delivery Method Nasal Cannula Nasal Cannula Oxygen Flow Rate (L/min) 6 MDM MDM MDM Narrative Medical decision making narrative: 69-year-old female has first and second-degree facial stallworth to her nose and cheeks from smoking a cigarette while wearing her chronic 3 L nasal cannula oxygen for COPD. She has soot and swelling in her nostrils but no stallworth in her mouth and is breathing easily. She is wearing her nasal cannula oxygen in her mouth as well. Vital signs show elevated heart rate of 114 and she is in A-fib RVR. I reviewed her medications and questioned her and she states she forgot totake her metoprolol this eveningso I ordered p.o. metoprolol to tartrate 50 mg. Cardiac workup ordered. EKG is A-fib RVR around 119. Serial troponins are 16,18, delta pending. CXR shows no acute process. Notes she could have the beg inning of pulmonary edema but she is on her baseline oxygen is no clinical signs of fluid overload.Since her arrival she has not had further chest pain in the emergency department. I have personally performed a face to face assessment of the patient and have reviewed the SORAYA Note. I performed a substantive portion of the visit including all aspects of the following. My meza findings include: History is 69-year-old female was seen earlier today the [facility] being transported to [facility] for facial stallworth and and route developed lower sternal chest pain. It is since resolved. Patient is on Eliquis due to history of A-fib and prior blood clots. Go Exam is [well-appearing 69-year-old female. Vital signs are stable she is in A- fib and tachycardic.After he rate around 110. Pulse ox is 97% on oxygen she is typically on oxygen. H EENT exam pupils round reactive light. She has secondary stallworth around her mouth. No trouble breathing or swallowing. No soot. Neck nontender. Lungs clear equal and symmetrical bilaterally. Heart A-fib rate about 100 220. Irregular. Chest wall nontender. Abdomen soft nondistended normal bowel sounds without peritoneal signs. She has a incisional hernia. It easily reduces. Moving all 4 extremities. Nontender. No cords. Calves nontender. Neurologically she is awake and alert.] Medical Decision Making [69-year-old female with chest pain is since resolved to undergo cardiac workup.] Other additions or changes: [None] Lab Data Attestation: I reviewed the patient's lab results. Labs: Laboratory Results - last 24 hr 12/04/24 12/04/24 12/04/24 15:19 17:35 21:47 WBC 8.1 RBC 4.11 L Hgb 12.9 Hct 39.9 MCV 97.1 MCH 31.4 MCHC 32.3 RDW Std Deviation 47.1 H RDW Coeff of Aubrey 13.2 Plt Count 181 MPV 10.4 Immature Gran % (Auto) 0.500 Neut % (Auto) 76.4 H Lymph % (Auto) 11.9 L Winn % (Auto) 7.9 Eos % (Auto) 3.2 Baso % (Auto) 0.1 Absolute Neuts (auto) 6.2 Absolute Lymphs (auto) 0.96 Nucleated RBC % 0 Sodium 144 Potassium 3.3 Chloride 107 Carbon Dioxide 23.9 Anion Gap 12 BUN 9 Creatinine 0.89 Estim Creat Clear Calc 60.09 Est GFR (MDRD) Non-Af 71 BUN/Creatinine Ratio 10.6 Glucose 112 H Calcium 8.4 Troponin T High Sens 16 H Troponin T Hi Sens 2 Hr 18 H Troponin T Hi Sens 4Hr 18 H Radiography Diagnostic Testing: Clinical Impression(s) from Imaging Studies Chest X-Ray 12/04/24 15:53 IMPRESSION: Cardiac enlargement. No focal infiltrate is identified. Incipient pulmonary edema. Reading Location: [facility] ED attending interpretation 1 view chest x-ray shows cardiomegaly, no acute infiltrate. EKG Initial EKG: Attestation: I personally reviewed and interpreted this EKG as follows: Comments: A-fib RVR at 119 bpm Left axis deviation slight ST depressions V3 through V6 MDM MDM Narrative Medical decision making narrative: 69-year-old female has first and second-degree facial stallworth to her nose and cheeks from smoking a cigarette while wearing her chronic 3 L nasal cannula oxygen for COPD. She has soot and swelling in her nostrils but no stallworth in her mouth and is breathing easily. She is wearing her nasal cannula oxygen in her mouth as well. Vital signs show elevated heart rate of 114 and she is in A-fib RVR. I reviewed her medications and questioned her and she states she forgot to take her metoprolol this evening so I ordered p.o. metoprolol to tartrate 50 mg. Cardiac workup ordered. EKG is A-fib RVR around 119. Serial troponins are 16, 18, delta pending. CXR shows no acute process. Notes she could have the b eginning of pulmonary edema but she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 diabetes and that intervention by lifestyle modification may be beneficial. A HGBA1C level greater than or equal to 6.5% is considered diagnostic of diabetes, pending confirmatory testing. Use of HGBA1C testing to evaluate glucose control may not be appropriate for patients with hemoglobin variants or other conditions (e.g. anemia) that alter red blood cell lifespan. PCP: No primary care provider on file. PAST MEDICAL HISTORY Diagnosis Date Acute chronic obstructive pulmonary disease with respiratory failure AF (paroxysmal atrial fibrillation) ([facility]) Anxiety Arthritis Seeing Dr Elliott Cervical cancer ([facility]) hysterectomy CHF (congestive heart failure) ([facility]) Dr. Ramsey Chronic back pain Seeing Dr. Wallace Chronic respiratory failure with hypercapnia ([facility]) 10/06/2018 [facility], 09/09/2018: 7.38/54.7/77/32.6 on 30% O2. CKD (chronic kidney disease), stage III ([facility]) Constipation Coronary atherosclerosis of [place] coronary artery Cyst of left kidney repeat US 10/2020 DDD (degenerative disc disease), lumbar DM type 2 (diabetes mellitus, type 2) ([facility]) Dr. Lopez for podiatry DVT (deep venous thrombosis) ([facility]) Post op INA, BSO. Dysphagia Seeing Dr. Beaulieu Emphysema lung ([facility]) Essential hypertension Femur fracture, left ([facility]) 07/2022 s/p nail Functional dyspepsia Gastroparesis 2017 mild GERD without esophagitis Gout Headache History of colon polyps 11/28/2016 Hyperlipidemia Hyperuricemia Hypothyroidism Incontinence Seeing Dr. Chapman Lung nodule 02/[address] in 3 months Morbid obesity ([facility]) Muscle weakness Nausea Obesity hypoventilation syndrome ([facility]) on 2-3 L oxygen continuously PARESH on CPAP [facility] for BiPAP and [facility] for O2. PE (pulmonary thromboembolism) ([facility]) Post op INA/BSO. Pneumonia Pulmonary HTN ([facility]) Renal cyst repeat US 10/2020 RLS (restless legs syndrome) Shortness of breath Sleep apnea using oxygen currently, not on CPAP Unsteadiness on feet Vitamin D deficiency Wheezing Current Outpatient Medications Medication Sig mfzgpimmheg-koealxqdw-xddczuml (TRELEGY ELLIPTA) 100-62.5-25 mcg inhalation powder Inhale 1 Puff asinstructed once daily. insulin glargine (LANTUS SOLOSTAR U-100 INSULIN) 100 unit/mL (3 mL) Inject 58 units subcutaneously twice daily nystatin (MYCOSTATIN) powder Apply 1 application to affected area three times a day. alcohol swabs Use up to 9 times per day to clean skin before testing blood sugar and injecting insulins (100 per box) ranolazine ER (RANEXA) 500 mg 12 hr tablet famotidine (PEPCID) 20 mg tablet amLODIPine (NORVASC) 5 mg tablet busPIRone (BUSPAR) 10 mg tablet Take one tablet in the AM, one tablet in the afternoon and 1.5 tablets in the evening fexofenadine (ALLEN ALLERGY) 180 mg tablet Take 1 tablet by mouth once daily. ascorbic acid, vitamin C, (VITAMIN C) 500 mg tablet Take 1 tablet by mouth once daily. Lancets lancets Test blood sugar(s) 4 times daily. Dx: Type 2 DM - Uncontrolled Insulin: Yes albuterol HFA (PROAIR HFA) 90 mcg/actuation inhaler Inhale 2 Puffs as instructed every 4 hours as needed for wheezing/shortness of breath. clopidogrel (PLAVIX) 75 mg tablet Take 75 mg by mouth once daily. insulin lispro (HUMALOG KWIKPEN INSULIN) 200 unit/mL (3 mL) injection Inject 14units with breakfast, 14 units with lunch, and 24 units with dinner alendronate (FOSAMAX) 70 mg tablet Take 1 tablet by mouth one time a week. Take with a full glass of water, on an empty stomach; do NOT lie down for 30minutes. blood sugar diagnostic (BLOOD GLUCOSE TEST) test strip Test blood sugar(s) 4 times daily. Dx: Type 2 DM - Uncontrolled Insulin: Yes cycloSPORINE (CEQUA) 0.09 % dropperette Use 1 Drop in both eyes every 12 hours. Incontinence Pad, Liner, Disp (BLADDER CONTROL PADS EX ABSORB) pads 1 Device as needed. potassium chloride (K-TAB) 10 mEq tablet Take 1 tablet by mouth daily with breakfast. oxyCODONE IR (ROXICODONE) 5 mg immediate release tablet Take by mouth every 8 hours as needed for pain. blood sugar diagnostic (BLOOD GLUCOSE TEST) test strip Test blood sugar(s) up to 4 times daily. Dx:Type 2 DM - Uncontrolled Insulin: Yes Freestyle Kira compatible test strips insulin needles, DISPOSABLE, (ULTICARE PEN NEEDLE) 31 gauge x 5/16 USE DIRECTED. TO INJECT INSULINS cyclobenzaprine (FLEXERIL) 10 mg tablet Take 1 tablet by mouth twice daily as needed for muscle spasm. BIPAP Bilevel PAP 16/12 cmH2O with 2 LPM oxygen bleed in, mask, tubing, filters, heated humidity, lifetime supplies. Dx: G47.33, G47.39. lidocaine (XYLOCAINE) 5 % ointment Apply to affected area as needed. use a small amount to affectedarea qid prn pain Facial Mask misc 1 Device once daily. Oxygen mask to be worn daily for history of hypoxia. nitroglycerin sublingual (NITROQUICK) 0.4 mg SL tablet DISSOLVE 1 TAB UNDER THE TONGUE NEEDED FOR CHEST PAIN EVERY 5 MINUTES UP TO 3 TIMES. IF NO RELIEF CALL 911. isosorbide mononitrate ER (IMDUR) 120 mg 24 hr tablet TAKE 1 TABLETS BY MOUTH EVERY MORNING - (120mg daily) COMPOUNDED PRESCRIPTION Pulse oximetry to be used PRN for SOB for COPD DX:J96.12 fluorometholone (FML LIQUID FILM) 0.1 % ophthalmic suspension 1 Drop every 4 hours. flash glucose scanning reader (ElixrSTYLE KIRA 14 DAY READER) [facility] Use to check blood sugars 4-5 times per day Dx: Type 2 diabetes mellitus treated with insulin E11.9 flash glucose sensor (FREESTYLE KIRA 14 DAY SENSOR) kit Use to check blood sugars 4-5 times per day. Dx: Type 2 diabetes mellitus treated with insulin E11.9 glucose 4 gram chewable tablet TAKE 4 TABLETS BY MOUTH NEEDED FOR LOW BLOOD SUGAR. COMPOUNDED PRESCRIPTION Please fit for BiPAP mask. COMPOUNDED PRESCRIPTION OCD Titration for portable oxygen concentrator Oxygen Flow Rate between 2-6liters. To keep oxygen saturation at or above 92%. OXYGEN, HOME THERAPY, Inhale 3 L/min as instructed as directed. COMPOUNDED PRESCRIPTION Evaluation for diabetic shoes and inserts Dx: E11.65, Z79.4 Incontinence Pad, Liner, Disp pads 1 Device as needed (urinary incontinence). Prevail incontinence pads. Dx: urinary incontinence. Size: small Blood-Glucose Meter (Yaolan.comTOUCH ULTRA2) monitoring kit UAD to test blood sugar metoprolol tartrate, short acting, (LOPRESSOR) 50 mg tablet Take 1 tablet by mouth two times a day. Cholecalciferol, Vitamin D3, (VITAMIN D-3) 50 mcg (2,000 unit) cap Take 1 capsule by mouth once daily. levothyroxine (SYNTHROID) 100 mcg tablet Take 1 tablet by mouth every morning. atorvastatin (LIPITOR) 40 mg tablet Take 1 tablet by mouth once daily. DULoxetine (CYMBALTA) 60 mg capsule Take 1 capsule by mouth once daily. furosemide (LASIX) 20 mg tablet Take 1 tablet by mouth two times a day. (Patient not taking: Reported on 01/15/2024) aspirin, enteric coated (ASPIRIN, ENTERIC COATED) 81 mg EC tablet Take 1 tablet by mouth every morning. (Patient not taking: Reported on 09/11/2023) omeprazole (PRILOSEC) 40 mg capsule Take 1 capsule by mouth once daily. No current facility-administered medications for this visit. ALLERGIES Allergen Reactions Adhesive Tape (Adrienne* Intolerance Surgical tape leaves rash Irritates skin badly and blisters along with medical tape Cats Other: See Comments Congested and itchy, difficulty breathing Dogs Other: See Comments Congestion, sneezing, and difficulty breathing Orphenadrine Unknown Capsaicin Itching Ciprofloxacin Other: See Comments Red, hot, itchy rash Keflex [Cephalexin] Hives Negative skin testing and [...] after 30 minutes, proceed with regular dosing. Niacin Unknown Pt states its niacin its niaspan Reglan [Metoclopram* Other: See Comments Unable to sleep Xanthines Unknown Zofran [Ondansetron* Itching PAST SURGICAL HISTORY Procedure Laterality Date CC PCI CORONARY INTERVENT 2004 CHOLECYSTECTOMY COLONOSCOPY Has had multiple in the past with polyps, cannot remember dates COLSC FLX W/RMVL OF TUMOR POLYP LESION SNARE TQ 11/28/2016 Repeat 2019 EGD TRANSORAL BIOPSY SINGLE/MULTIPLE 11/28/2016 HERNIA REPAIR HX multiple KNEE SURGERY HX Left x3 for torn cartilage NASAL SURGERY PROCEDURE sinus PAST SURGICAL HISTORY OF 01/30/2018 endoscopic per-oral pyloromyotomy PAST SURGICAL HISTORY OF Left 07/2022 cephalomedullary nail femur after fall with fracture TOTAL ABDOM HYSTERECTOMY 1988 Cervical cancer TUBAL LIGATION HX WRIST SURGERY HX Right ganglion cyst removal x2 Physical Exam: OBJECTIVE: Constitutional: Pt is a well developed 69 year old female who is alert, oriented, cooperative and in no apparent distress. Eyes: Following during examination. No redness or drainage. Respiratory: RR normal and nonlabored. Even breathing. No evidence of distress. Psychology: Patient is engaged during conversation. Normal affect and mood. Does not appear depressed or anxious. Vascular: swelling noted to b/l lower extremity. Dermatological: Right lower leg ulceration is healed. No signs of infection. Musculoskeletal/Orthopaedic: Patient has no pain to palpation of b/l lower extremity ASSESSMENT: Venous insufficiency (primary encounter diagnosis) PLAN: Right leg ulceration is now healed Would have patient continue with some form of compression to help lower risk of recurrent ulceration Can follow-up as needed as ulceration is now healed. Demetria Cifuentes DPM * Daniella Cunningham LPN - 01/29/2024 3:52 PM EDT AMB ROOMING INTAKE FLOWSHEET DATA Pain Pain Level: 7 Pain Location: Other: See Comment (bilateral feet) Description: Aching, Sore, Dull Patient presents with: Left Foot - Established Patient, Follow Up, Pain, Diabetic Foot Care, Swelling Right Foot - Established Patient, Follow Up, Pain, Swelling Daniella Cunningham LPN documented in this encounter[facility] Instructions* Patient Instructions* Demetria Cifuentes - 01/29/2024 4:03 PM EDT Your wound is now healed Continue with lotion to feet daily Would recommend use of tubigrip for swelling reduction documented in this encounterB[facility] Procedure [facility]04-25-[facility] History of Present illness Narrative* Demetria Cifuentes - 01/15/2024 1:50 PM EDT Last saw pcp: last week Subjective: Patient presents to clinic c/o painful toenails. They state that the nails are especially painful with shoe gear and pressure. Patient states that nails 2-3 b/l are painful. Patient admits to being diabetic. States that she recently fell and scraped her right leg. Has two superficial wounds. Had these cultured by her pcp. Is now on two antibiotics. No other pedal complaints at this time. Patient states no change in medications or medical history since last visit. Objective: Patient presents to clinic ambulating in [facility] Vasc: DP and PT pulses are faintly palpable bilateral. CFT is less than 5 seconds bilateral. Skin temperature is warm to cool proximal to distal bilateral. There is mild edema or varicosities noted. Neuro: Protective sensation is absent to the foot and toes when tested with the 5.07 SWM bilateral.Vibratory sensation is absent at the hallux IPJ bilateral. The hallux is downgoing bilateral. Derm: Nails 2-5 b/l are painful, discolored-yellow, thick, crumbly, dystrophic and with subungal debris. Skin is of normal turgor, texture and hair growth is absent bilateral. There are two superficial abrasions to right anterior leg. No drainage noted. Ortho: Muscle strength is 5/5 for all pedal groups tested. Ankle joint DF is decreased with the knee extended with no pain or crepitus noted. 1st MPJ ROM is decreased bilateral. Assessment: (B35.1) Onychomycosis (primary encounter diagnosis) (M79.674) Pain in toe of right foot (M79.675) Pain in toe of left foot (I73.9) Peripheral arterial disease (HCC) (E11.49) Other diabetic neurological complication associated with type 2 diabetes mellitus (HCC) (I87.2) Venous insufficiency Plan: Patient was seen and evaluated. Nails 2-5 bilateral were debrided in length and thickness. Patient was instructed on the continued importance of diabetic foot care along with proper diet andkeeping their blood sugar under control to prevent complications. Informed patient that she does have diabetic neuropathy. Very important that she avoid barefoot walking, wear good shoes and to inspect feet. Discussed circulation. Reviewed pvr from 2021. Normal lillian. Suspect normal perfusion to heal the wounds of right leg. Discussed swelling in righ tleg. I do feel that current care with nonadherent pad, topical antibiotic and perhaps tubigrop can help with healing. Patient is to RTC in 3-4 months. If wounds fail to heal to right leg, consider wound center or can make follow-up here MARAL Santana DPM * Chuyita Pearson RN - 01/15/2024 1:20 PM EDT AMB ROOMING INTAKE FLOWSHEET DATA Risk Screening Do you have concerns about personal safety or safety in the home?: No Patient presents with: Left Foot - Established Patient, Debridement of Nail Right Foot - Established Patient, Debridement of Nail documented in this encounterBrec[facility]04[facility] Instructions* Patient Instructions* Demetria Cifuentes - 01/15/2024 1:50 PM EDT Diabetes Foot Care Instructions When you have diabetes, proper foot care is very important. Poor foot care may lead to amputation of a foot or leg. As a person with diabetes, you are more vulnerable to foot problems, because diabetes can damage your nerves and reduce blood flow to your feet. Here are some diabetes foot care tips to follow: Wash and Dry Your Feet Daily Use mild soaps Use warm water Pat your skin dry; do not rub. Thoroughly dry your feet. After washing, use lotion on your feet to prevent cracking. Do not put lotion between your toes. Examine Your Feet Each Day Check the tops and bottoms of your feet. Have someone else look at your feet if you cannot see them. Check for dry, cracked skin. Look for blisters, cuts, scratches, or other sores. Check for redness, increased warmth, or tenderness when touching any area of your feet. Check for ingrown toenails, corns, and calluses. If you get a blister or sore from your shoes, do not pop it. Apply a bandage and wear a differentpair of shoes. Take Care of Your Toenails Cut toenails after bathing, when they are soft. Cut toenails straight across and smooth with a nail file. Avoid cutting into the corners of toes. Do not cut cuticles. If you have neuropathy (or decreased sensation in your feet) a grinder carbon plant should always cut your toenails. Be Careful When Exercising Walk and exercise in comfortable shoes. Do not exercise when you have open sores on your feet. Protect Your Feet With Shoes and Socks Never go barefoot. Always protect your feet by wearing shoes or hard-soled slippers or footwear. Avoid shoes with high heels and pointed toes. Avoid shoes that expose your toes or heels (such as open-toed shoes or sandals). These types of shoes increase your risk for injury and potential infections. Try on new footwear with the type of socks you usually wear. Do not wear new shoes for more than an hour at a time. Change your socks daily. Look and feel inside your shoes before putting them on to make sure there are no foreign objects orrough areas. Avoid tight socks. Wear natural-fiber socks (cotton, wool, or a cotton-wool blend). Wear special shoes if your health care provider recommends them. Wear shoes/boots that will protect your feet from various weather conditions (cold, moisture, etc.). Make sure your shoes fit properly. If you have neuropathy (nerve damage), you may not notice that your shoes are too tight. Perform the footwear test described below. Footwear Test Use this simple test to see if your shoes fit correctly: Stand on a piece of paper. (Make sure you are standing and not sitting, because your foot changes shape when you stand.) Trace the outline of your foot. Trace the outline of your shoe. Compare the tracings: Is the shoe too narrow? Is your foot crammed into the shoe? The shoe should be at least 1/2 inch longer than your longest toe and as wide as your foot. Proper Shoe Choices The following types of shoes are best for people with diabetes Closed toes and heels Leather uppers without a seam inside At least 1/2 inch extra space at the end of your longest toe Inside of shoe should be soft with no rough areas Outer sole should be made of stiff material Shoes should be at least as wide as your feet Tips for Foot Care in Diabetes Don't wait to treat a minor foot problem if you have diabetes. Follow your health care provider's guidelines and first aid guidelines. Report foot injuries and infections to your health care provider immediately. Check water temperature with your elbow, not your foot. Do not use a heating pad on your feet. Do not cross your legs. Do not self-treat your corns, calluses, or other foot problems. Go to your health care provider or grinder [employer] plant to treat these conditions. For wound of right leg: Continue with topical antibiotic, nonadherent and lightly applied coban. Could consider a lightly applied tubigrip of right leg which can help with swelling. [facility] History and physical note Author Jeff Friend [facility] November 27, 2023 10:50am Note Date/Time November 27, 2023 10:5 1am [facility] Medical Records Department [address] [place] [address] History & Physical Exam 11/27/23 1049 MR#: [id number] Acct: [id number] Name: TAMIA PANDA Rep #:[id number] : 1955 68 From: Jeff Lewis DO PCP: Dr. Dylon Murrieta MD Status:[facility] [place] Location: [place] [address] History and Physical Date of Admission: 11/27/23 Sepsis Details: TAMIA PANDA, is a 68 F who presents to the office today for HFU. *[facility] hospitalization 08.13.23-08.20.23 for management of UTI with acute encephalopathy choledocholithiasis with CBD dilation and transaminitis and chronic conditions a.fib, hypothyroid, DMII, anxiety, CAD. ?US RUQ 08.13.23?hepatic measurement 19.9cm with fatty infiltration; s/p cholecystectomy; marked CBD dilation; limited pancreatic visualization ?MRCP 08.15.23?ductal dilation, extrahepatic>intrahepatic, CBD 18mm with filling defect of lower common duct; simple renal cysts. ERCP 08.16.23?minor papilla not seen; markedly dilated biliary system with obstructing stone, sphincterotomy/balloon extraction; left main hepatic duct dilated; temporary stent in CBD. No specimens. OV 1.29.24 no show OV 2.13.24- Pt stable since hospital visit. Still has some RUQ pain but is much better. Has nausea in the morning that is better when she eats. Says BM are irregular. Will have stools followed by constipation. ROS Const Constitutional: Positive for fatigue and weight change ENT ENT: No difficulty swallowing Cardio Cardiology: Positive for leg pain with exertion Gastro GI: Positive for abdominal pain, constipation, diarrhea, heartburn and nausea/dyspepsia; No belching, bloating, change in bowel habits, change in stool character, coffeeground emesis, cramping, difficulty swallowing, feeling full early, excessive flatus, incontinent of stools, Vomiting blood/hematemesis, Blood in stool, loosestools, Black,tarry stools, pain with swallowing, vomiting or other Musc Musculoskeletal: Positive for joint pain, back pain, muscle cramps, muscle weakness, stiffness, restless legs, leg pain at night and leg pain with exertion Skin Skin: No yellowing of the eye or itchy eyes Neuro Neurology: Positive for restless legs Psych Psychiatric: No anxiety and No depression Endo Endocrine: Positive for fatigue and weight change Aller/Imm Allergy/Immunologic: No itchy eyes Singh/Lymp Hematologic/Lymphatic: No easy bleeding or easy bruising Exam Const General: cooperative and comfortable Nutritional Appearance: average body habitus and well nourished [facility] Head: normal to inspection Ears: hearing grossly normal bilaterally Nose: external nose normal Face and sinus: normal facial exam Mouth: oral mucosae normal Throat: posterior oropharynx normal Eyes General: appearance normal, both eyes and all related structures Neck Neck: normal visual inspection Chest Chest palpation & inspection: normal inspection of the chest and normal palpation of entire chest wall Resp Effort & Inspection: normal respiratory effort Auscultation: Bilateral: Clear to Auscultation Cardio Palpation: normal PMI Rate: regular rate Rhythm: regular rhythm GI Inspection: normal to inspection Auscultation: normal bowel sounds Percussion: normal to percussion Palpation: no hepatosplenomegaly Skin General: no rashes or lesions noted Neuro General: patient alert Extrem General: normal to inspection Psych Affect: normal affect Quality Reporting Tobacco Screening ([facility] 138) Smoking Status: Former smoker Assessment and Plan Assessment and Plan (1) Choledocholithiasis: Status: Resolved Plan: 68 F with a past with a past medical history of essential hypertension, hyperlipidemia, hypothyroidism, DM-2; of unknown control, obesity; with a BMI of38.4 this admission, PARESH; noncompliant with CPAP, history of Paroxysmal Atrial Fibrillation; on Apixaban, history of CAD; s/p RI and stent (2003) and recent in-stent stenosis (06/04/2023), history of CHF, history of DVT/PE, history of tobacco abuse (quit 2000); with subsequent COPD, history of cholecystectomy, history of cervical cancer, CKD; stage III, OA; with chronic back pain, chronic anemia, RLS, GERD, history of UTI and depression who presented to [facility] 08/13/2023 complaining of chest pain, RUQ pain, confusion andagitation. She is found to have transaminitis and choledocholithiasis and had ERCP 08/16/2023 with stone removal and duct sweep. ID was consulted due to ESBL UTI which was felt to be the cause of her initial metabolic encephalopathy when she was on Meropenem which also would cover any gallbladder source. Patient improved and finished her course of antibiotics. She had a brief increase in LFTs however pain was completely resolved and they trended back down, possibly had some mild sludge the patient doing much better today. She reports on day of discharge that her breathing is at baseline, has had slight cough but no fever or elevation white blood cell count and no other signs or symptoms consistent with pneumonia or bacterial respiratory infection. Constipation resolved and abdominal pain resolved. She is doing very well from a gi standpoint. I will schedule her for ERCP with stent removal. I have examined the patient and the H&P has been reviewed. There are no clinicalchanges since date of exam. 11/27/23 1050 <Electronically signed by Jeff Lewis DO> Cosigner Signature (if applicable): CC: Dr. Dylon Murrieta MD; Jefftip Lewis DO~ Signed [facility] Work Phone: 1(605) 997-193303-07-2024 Procedure [facility] 11-27-2023 Procedure [facility]12-21-2023 Miscellaneous Notes* Telephone Encounter - Irene Palacios LPN - 09/11/2023 12:02 PM EST OV notes from 09/09/23 forwarded to [facility] cardiology as advised. * Telephone Encounter - Irene Palacios LPN - 09/11/2023 11:37 AM EST Updated patient and [place]. * Telephone Encounter - Nanda Oliveira MD - 09/11/2023 10:15 AM EST I had that she was taking 75 mg metoprolol BID instead of 100. I would have her reduce dose to 50 mg BID as discussed in office and monitor BP and HR at home. Call if BP >140/90 or if HR >100. Please fax my office visit to [facility] Cardiology office as FYI. * Telephone Encounter - Pat Groves LPN - 09/11/2023 9:52 AM EST Gin from [place] pharmacy calling with question, [facility] had been giving patient Metoprolol 100 mg twice daily. They received the rx for the 50 mg twice daily from Dr Oliveira. She was notsure if was aware of the dose [facility] was giving the patient? She did not want to pack her next medications until she checked first. Please advise documented [facility]12-[facility]23 Miscellaneous Notes* Telephone Encounter - Irene Palacios LPN - 09/11/2023 11:59 AM EST Phoned patient and reviewed provider's message with her. Patient voiced understanding. Updated her on message regarding metoprolol and genoa's call and PCP's recommendations with BP and HR parameters. She voiced understanding on this as well. * Telephone Encounter - Renetta Millard OCCA - 09/10/2023 12:04 PM EST TC to patient with no answer. Unable to leave VM d/t mailbox is full. Please try again later. SRIRAM Cent[facility] * Telephone Encounter - Renetta Millard OCCA - 09/10/2023 12:03 PM EST ----- Message from Nanda Oliveira MD sent at 09/10/2023 9:04 AM EST ----- Stable labs with kidney function in CKD stage III range. Recommend low sodium diet <2,000 mg perday, avoidance of NSAIDs, and increased water intake. documented in [facility]12-[facility]23 Miscellaneous Notes* Telephone Encounter - Martha Bruce RN - 08/22/2023 2:50 PM EST Protocol recommends see PCP within 24 hours. Care plan reviewed with patient. Patient voices understanding. Advised patient that if symptoms get worse to go to the ER, Reason for Disposition [1] MODERATE pain (e.g., interferes with normal activities) AND [2] pain comes and goes (cramps) AND [3] present > 24 hours (Exception: Pain with Vomiting or Diarrhea - see that Guideline.) Answer Assessment - Initial Assessment Questions 1. LOCATION: entire right side of abd 2. RADIATION: up under her ribs on right side 3. ONSET: started on Fri but today about an hour ago it started coming every 2 mins 4. SUDDEN: gradual but suddenly more frequent 5. PATTERN Comes and goes, coming every few mins and lasts about 2 mins 6. SEVERITY: 03/31 patient is not doing much but sitting. - MILD (1-3): Doesn't interfere with normal activities, abdomen soft and not tender to touch. - MODERATE (4-7): Interferes with normal activities or awakens from sleep, abdomen tender to touch. - SEVERE (8-10): Excruciating pain, doubled over, unable to do any normal activities. 7. RECURRENT SYMPTOM: States this type of abd pain is new 8. CAUSE: pt unsure 9. RELIEVING/AGGRAVATING FACTORS: helps if she bends over 10. OTHER SYMPTOMS: chest pressure but states that has been going on and she has been evaluated forit. 11. : n/a Protocols used: Abdominal Pain - [id number] documented in this encounterB[facility]11-29-2023 Progress note Author Syed Montanez [facility] August 20, 2023 1:36pm Note Date/Time August 20, 2023 1:36pm [facility] Medical Records Department [address] [place] [address] Progress Note - Infect Disease 08/20/231334 MR#: [id number] Acct: [id number] Name: TAMIA PANDA Jennifer Rep #:[id number] : 1955 68 From: Syed sotomayor MD PCP: Dr. Bhupendra Oliveira MD Status :ADM IN Location: [place] [address] Physical Exam Narrative Feeling better, appetite improved, no fever Const alert and no apparent distress General Appearance: cooperative Resp normal air movement and clear to auscultation bilaterally Cardio regular rate and regular rhythm GI soft to palpation, non-tender and non-distended Extremity General Extremity: Negative for edema Skin no rashes or lesions noted ID ID: Route of nutrition/ use of supplements: [] Nutritional Intake: [] IV Site: [] Maradiaga Catheter: [] Assessment & Plan Assessment/Plan (1) Complicated urinary tract infection: PLAN: Ucx with esbl ecoli uti. MRCP shows bile duct dilation, ERCP done 08/16. On naila. Will stop today. LFTs improved. Will follow (2) Encephalopathy acute: (3) Common bile duct dilatation: 08/20/231335 <Electronically signed by Syed Montanez MD> Cosigner Signature (if applicable): CC: ~ Signed [facility] Work Phone: 1(447) 692-364911-29-2023 Progress note Author Jeff Friend [facility] August 20, 2023 4:24pm Note Date/Time August 20, 2023 4:24pm [facility] Medical Records Department [address] [place] [address] Progress Note - GI 08/20/23 0800 MR#: [id number] Acct: [id number] Name: TAMIA PANDA Rep #:[id number] : 1955 68 From: Jeff Friend DO PCP: Dr. Bhupendra Oliveira MD Status :ADM IN Location: [place] [address] Subjective Subjective Patient is doing very well and abdominal pain is completely resolved. Objective Data Objective Data Vital Signs: Vital Signs Temp Pulse Resp BP Pulse Ox O2 Del Method O2 Flow Rate 98.9 F 105 H 18 106/69 100 Nasal Cannula 1 08/20/23 15:40 08/20/23 15:40 08/20/23 15:40 08/20/23 15:40 08/20/23 15:40 08/20/23 15:40 08/20/23 15:40 Oxygen Flow Rate (L/min) 1 Oxygen Delivery Method Nasal Cannula Weight: 195 lb 8.8 oz Body Mass Index (BMI) 36.9 Intake & Output: Intake and Output for Last 24 Hours 08/18/23 08/19/23 08/20/23 23:59 23:59 23:59 Intake Total 5648.33 / 6148.33 6361.67 / 6961.67 3463.33 / 3463.33 Output Total 750 / 2350 5600 / 5600 600 / 600 Balance 4898.33 / 3798.33 761.67 / 1361.67 2863.33 / 2863.33 Lab / Micro Data 08/20/23 06:20 08/20/23 06:20 Labs: Laboratory Results - last 24 hr 08/19/23 17:27: POC Glucose 110 H 08/19/23 21:12: POC Glucose 136 H 08/19/23 23:28: POC Glucose 97 08/20/23 04:51: POC Glucose 52 L 08/20/23 05:54: POC Glucose 96 08/20/23 06:20: WBC 6.5, RBC 3.46 L, Hgb 10.8 L, Hct 34.4 L, MCV 99.4 H, MCH 31.2, MCHC 31.4 L, RDW Std Deviation 53.8 H, RDW Coeff of Aubrey 14.9 H, Plt Count 226, MPV 10.6, Immature Gran % (Auto) 1.200 H, Neut % (Auto) 73.8 H, Lymph % (Auto) 8.1 L, Winn % (Auto) 10.4 H, Eos % (Auto) 6.0 H, Baso % (Auto) 0.5, Absolute Neuts (auto) 4.8, Absolute Lymphs (auto) 0.53 L, Nucleated RBC % 0, Differential Comment SCANNED, Sodium 139, Potassium 4.4, Chloride 106, Carbon Dioxide 29.0, Anion Gap 4 L, BUN 14, Creatinine 1.04 H, Estim Creat Clear Calc 39.07, Est GFR (MDRD) Af Amer 68, Est GFR (MDRD) Non-Af 56 L, BUN/Creatinine Ratio 13.5, Glucose 95, Calcium 8.4 L, Total Bilirubin 0.80, AST 100 H, ALT 133 H, Alkaline Phosphatase 168 H, Total Protein 6.3 L, Albumin 2.3 L, Globulin 4.0,Albumin/Globulin Ratio 0.6 L 08/20/23 09:58: POC Glucose 80 08/20/23 12:03: POC Glucose 94 Micro: Microbiology 08/13/23 16:20 Urine Catheter - Catheter Urine Culture - Final ESBL Escherichia coli Physical Exam Narrative Feeling better, appetite improved, no fever Const alert and no apparent distress General Appearance: cooperative Resp normal air movement and clear to auscultation bilaterally Cardio regular rate and regular rhythm GI soft to palpation, non-tender and non-distended Extremity General Extremity: Negative for edema Skin no rashes or lesions noted Assessment & Plan Assessment/Plan (1) Choledocholithiasis: (2) Elevated transaminase level: (3) Complicated urinary tract infection: (4) Encephalopathy acute: PLAN: Plan Patient is a 68-year-old lady admitted with altered mental status. An assessment of acute encephalopathy secondary to infectious encephalopathy from cystitis made. Patient was also found to have elevated transaminases thought nas secondary to common bile duct stone. Status post ERCP with stone removal and stent placement. I will put her on lactated Ringer's. It is a possibility that she has some local inflammation from the stent and contrast used during the procedure. Hopefully with administration of IV fluids with stents typical treatment that she was started to get better regarding pain. She is tolerating a diet at this. Continue to monitor. She is feeling better and is tolerating a normal diet. Differential diagnosis for her increase in LFTs could be medications, sludge in the stent or a proximal common bile duct stone it fell down and clogged the stent. We will continue to trend her LFTs. If they continue to go up and she would likely need a stent exchange with balloon sweep of the common bile duct. Her LFTs are trending down. She most likely had some mild sludge. She will need outpatient follow-up for stent removal or exchange in approximately 2 to 3 months. Charges/Coding Visit Charges Inpatient E&M: 81168 Subs Hosp L3 08/20/23 1624 <Electronically signed by Jeff Lewis DO> Cosigner Signature (if applicable): CC: ~ Signed [facility] Work Phone: 1(334) 365-787311-28-2023 Progress note Author Jeff Lewis [facility] August 19, 2023 4:14pm Note Date/Time August 19, 2023 4:14pm [facility] Medical Records Department [address] [place] [address] Progress Note - GI 08/19/23 1613 MR#: [id number] Acct: [id number] Name: TAMIA PANDA Rep #:[id number] : 1955 68 From: Jeff Lewis DO PCP: Dr. Bhupendra Oliveira MD Status :ADM IN Location: [place] [address] Subjective Subjective Patient does not have any abdominal pain but her LFTs have been trending up. Objective Data Objective Data Vital Signs: Vital Signs Temp Pulse Resp BP Pulse Ox O2 Del Method O2 Flow Rate 97.8 F 87 17 119/76 97 Nasal Cannula 1 08/19/23 13:47 08/19/23 13:47 08/19/23 13:47 08/19/23 13:47 08/19/23 13:47 08/19/23 16:10 08/19/23 16:10 Oxygen Flow Rate (L/min) 1 Oxygen Delivery Method Nasal Cannula Weight: 195 lb 1.745 oz Body Mass Index (BMI) 36.8 Intake & Output: Intake and Output for Last 24 Hours 08/17/23 08/18/23 08/19/23 23:59 23:59 23:59 Intake Total 2230 / 2230 5648.33 / 6148.33 5476.67 / 5476.67 Output Total 2180 / 2180 750 / 2350 4700 / 4700 Balance 50 / 50 4898.33 / 3798.33 776.67 / 776.67 Lab / Micro Data 08/17/23 04:53 08/19/23 06:00 Labs: Laboratory Results - last 24 hr 08/18/23 16:27: POC Glucose 233 H 08/18/23 21:21: POC Glucose 146 H 08/19/23 00:20: POC Glucose 224 H 08/19/23 06:00: Sodium 138, Potassium 3.9, Chloride 103, Carbon Dioxide 34.0 H, Anion Gap 1 L, BUN 20 H, Creatinine 1.40 H, Estim Creat Clear Calc 29.02, Est GFR (MDRD) Af Amer 48 L, Est GFR (MDRD) Non-Af 40 L, BUN/Creatinine Ratio 14.3, Glucose 234 H, Calcium 8.6, Total Bilirubin 1.40 H, AST 247 H, ALT 195 H, Alkaline Phosphatase 162 H, Total Protein 6.2 L, Albumin 2.3 L, Globulin 3.9, Albumin/Globulin Ratio 0.6 L 08/19/23 08:54: POC Glucose 174 H 08/19/23 11:41: POC Glucose 168 H Micro: Microbiology 08/13/23 16:20 Urine Catheter - Catheter Urine Culture - Final ESBL Escherichia coli Radiography Diagnostic Testing: Radiology Impression KUB X-Ray 08/18/23 23:40 IMPRESSION: Post procedure change without obvious acute abnormality of the abdomen. Electronically Signed: Wyatt River MD at 1:16 EST , Physical Exam Narrative General: Alert, no apparent distress HEENT: Atraumatic, normocephalic Eyes: Anicteric, normal conjunctiva, extraocular movements grossly intact Neck: Supple Respiratory: Somewhat diminished at the bases, suspect in part due to habitus, normal respiratory effort Cardiovascular: Regular rate GI: Soft, nondistended, hypoactive bowel sounds, no rebound, guarding, rigidity Extremities: No edema Musculoskeletal: Moving all extremities Neuro: No overt focal neurological deficits Skin: No rashes appreciated Psych: Overall Assessment & Plan Assessment/Plan (1) Choledocholithiasis: (2) Elevated transaminase level: (3) Complicated urinary tract infection: (4) Encephalopathy acute: PLAN: Plan Patient is a 68-year-old lady admitted with altered mental status. An assessment of acute encephalopathy secondary to infectious encephalopathy from cystitis made. Patient was also found to have elevated transaminases thought nas secondary to common bile duct stone. Status post ERCP with stone removal and stent placement. I will put her on lactated Ringer's. It is a possibility that she has some local inflammation from the stent and contrast used during the procedure. Hopefully with administration of IV fluids with stents typical treatment that she was started to get better regarding pain. She is tolerating a diet at this. Continue to monitor. She is feeling better and is tolerating a normal diet. Differential diagnosis for her increase in LFTs could be medications, sludge in the stent or a proximal common bile duct stone it fell down and clogged the stent. We will continue to trend her LFTs. If they continue to go up and she would likely need a stent exchange with balloon sweep of the common bile duct. Charges/Coding Visit Charges Inpatient E&M: 03390 Subs Hosp L3 08/19/23 1614 <Electronically signed by Jeff Lewis DO> Cosigner Signature (if applicable): CC: ~ Signed [facility] Work Phone: 1(786) 154-346411-28-2023 Progress note Author Reyna Champagne [facility] August 19, 2023 8:42am Note Date/Time August 19, 2023 8:42am [facility] Medical Records Department [address] [place] [address] Progress Note - Hospitalist 08/19/23831 MR#: [id number] Acct: [id number] Name: TAMIA PANDA Rep #:[id number] : 1955 68 From: Reyna Champagne MD PCP: Dr. Bhupendra Oliveira MD Status :ADM IN Location: [place] [address] 1 Reason for Visit Reason for Visit: Diagnoses Encephalopathy, unspecified (08/13/23) Calculus of bile duct without cholangitis or cholecystitis without obstruction (08/13/23) Other specified diseases of biliary tract (08/13/23) Urinary tract infection, site not specified (08/13/23) Elevation of levels of liver transaminase levels (08/13/23) Presence of coronary angioplasty implant and graft (08/13/23) Subjective Subjective Patient reports that she still aches all over, overnight had some lower abdominal cramping and gas and became generalized, feeling slightly better this a.m. but is perturbed by this Objective Data Objective Data Vital Signs: Vital Signs Temp Pulse Resp BP Pulse Ox O2 Del Method O2 Flow Rate 97.7 F L 68 20 H 144/86 H 93 Nasal Cannula 1 08/18/23 23:34 08/18/23 23:34 08/18/23 23:34 08/18/23 23:34 08/18/23 23:34 08/19/23 06:00 08/19/23 06:00 Oxygen Flow Rate (L/min) 1 Oxygen Delivery Method Nasal Cannula Weight: 88.5 kg Body Mass Index (BMI) 36.8 Intake & Output: Intake and Output for Last 24 Hours 08/17/23 08/18/23 08/19/23 23:59 23:59 23:59 Intake Total 2230 / 2230 5648.33 / 6148.33 3070 / 3070 Output Total 2180 / 2180 750 / 2350 3500 / 3500 Balance 50 / 50 4898.33 / 3798.33 -430 / -430 Lab / Micro Data 08/17/23 04:53 08/19/23 06:00 Labs: Laboratory Results - last 24 hr 08/18/23 11:25: POC Glucose 215 H 08/18/23 16:27: POC Glucose 233 H 08/18/23 21:21: POC Glucose 146 H 08/19/23 00:20: POC Glucose 224 H 08/19/23 06:00: Sodium 138, Potassium 3.9, Chloride 103, Carbon Dioxide 34.0 H, Anion Gap 1 L, BUN 20 H, Creatinine 1.40 H, Estim Creat Clear Calc 29.02, Est GFR (MDRD) Af Amer 48 L, Est GFR (MDRD) Non-Af 40 L, BUN/Creatinine Ratio 14.3, Glucose 234 H, Calcium 8.6, Total Bilirubin 1.40 H, AST 247 H, ALT 195 H, Alkaline Phosphatase 162 H, Total Protein 6.2 L, Albumin 2.3 L, Globulin 3.9, Albumin/Globulin Ratio 0.6 L Micro: Microbiology 08/13/23 16:20 Urine Catheter - Catheter Urine Culture - Final ESBL Escherichia coli Radiography Diagnostic Testing: Radiology Impression Endo Retro Cholangiopancreatogram 08/16/23 15:10 IMPRESSION: As above. Electronically Signed: Dannie Handley MD at 12:25 EST , KUB X-Ray 08/18/23 23:40 IMPRESSION: Post procedure change without obvious acute abnormality of the abdomen. Electronically Signed: Wyatt River MD at 1:16 EST , Physical Exam Narrative General: Alert, no apparent distress HEENT: Atraumatic, normocephalic Eyes: Anicteric, normal conjunctiva, extraocular movements grossly intact Neck: Supple Respiratory: Somewhat diminished at the bases, suspect in part due to habitus, normal respiratory effort Cardiovascular: Regular rate GI: Soft, nondistended, hypoactive bowel sounds, no rebound, guarding, rigidity Extremities: No edema Musculoskeletal: Moving all extremities Neuro: No overt focal neurological deficits Skin: No rashes appreciated Psych: Overall Assessment & Plan Assessment/Plan (1) Common bile duct dilatation: (2) Elevated transaminase level: (3) Complicated urinary tract infection: (4) Encephalopathy acute: PLAN: Plan #Transaminitis secondary to choledocholithiasis -Status post ERCP 08/16/2023 -GI following -Presently on Merrem -Also receiving IVF -08/19: Patient had removal of stone and stent placement as above, still on LR, had abdominal pain however, seems to be more gas or bowel movement related, had no obstruction on KUB but does have increase in bili and LFTs however last time they were checked was 08/16 so unclear the acuity, will trend CMP. GI following. In regards to bowel movements we will schedule MiraLAX, reports history of gastroparesis but is allergic to Reglan, could consider scheduling mirtazapine however would not want to promote weight gain if possible #Paroxysmal atrial fibrillation -Continue metoprolol, full dose AC had been held but is now been resumed. Additionally patient has aspirin, Plavix, and Eliquis on home med list, but it appears that aspirin was supposed to be discontinued and she was only supposed to be taking Plavix and Eliquis based on most recent cardiology visit, resumed Eliquis and Plavix -08/19: Back on Eliquis and Plavix #Acute metabolic encephalopathy secondary to ESBL UTI -Improved with treatment of underlying etiology -Patient presently on Merrem -Infectious disease following -08/19: Patient alert and answers questions appropriately #Hypothyroidism -Continue Synthroid #Type 2 diabetes mellitus -Glucose checks and sliding scale insulin -Continue to adjust Premeal and insulin glargine #Anxiety -Continue Cymbalta and BuSpar #Coronary artery disease -Status post PCI 2003 and 2002, additionally patient had RI with recent in-stentstenosis 06/04/2023 -[id number]-[id number]-[id number] w/2.25 x 18 mm Resolute [place] RX SU, PTCA alone to in-stent restenosis D1 06/04/23 -Restarted Plavix and Eliquis after discussing with GI today -08/19: Medications resumed #DVT ppx: Kenton Champagne MD Time spent in the patient's overall evaluation,decision-making process, review of diagnostic data, adjustment of management, discussion with other providers, nursing nursing and ancillary staff involved in patient's care documentation, 37Minutes Charges/Coding Visit Charges Inpatient E&M: 60884 Subs Hosp L2 08/19/23 0842 <Electronically signed by Reyna Champagne MD> Cosigner Signature (if applicable): CC: ~ Signed [facility] Work Phone: 1(872) 759-679211-28-2023 Progress note Author James Cohn [facility] August 19, 2023 1:16am Note Date/Time August 19, 2023 1:16am [facility] Medical Records Department [address] [place] [address] Progress Note - Hospitalist 08/19/23 011 MR#: [id number] Acct: [id number] Name: TAMIA PANDA Rep #:[id number] : 1955 68 From: James Cohn DO PCP: Dr. Bhupendra Oliveira MD Status :ADM IN Location: [place] [address] Hospitalist Note Patient began complaining of abdominal pain. I went to evaluate and pt was complaining of pain all over put indicated that it was more umbilical. On exam, she had no RUQ abdominal tenderness. +Tenderness over ventral hernia, but no rebound. AXR on my evaluation was unremarkable. Notably, no ileus/SBO (official report pending). Await final read. No indication at this time for CT imaging unless condition changes. 08/19/23115 <Electronically signed by James Cohn DO> Cosigner Signature (if applicable): CC: ~ Signed [facility] Work Phone: 1([phone]) 104-462411-27-2023 Progress note Author Jeff Lewis [facility] August 18, 2023 4:22pm Note Date/Time August 18, 2023 4:22pm [facility] Medical Records Department [address] [place] [address] Progress Note - GI 08/18/23 1619 MR#: [id number] Acct: [id number] Name: TAMIA PANDA Rep #:[id number] : 1955 68 From: Jeff Lewis DO PCP: Dr. Bhupendra Oliveira MD Status :ADM IN Location: [place] [address] Subjective Subjective Patient is doing well and her abdominal pain is alot better. Objective Data Objective Data Vital Signs: Vital Signs Temp Pulse Resp BP Pulse Ox O2 Del Method O2 Flow Rate 97.8 F 96 18 118/64 98 Nasal Cannula 1 08/18/23 15:12 08/18/23 15:12 08/18/23 15:12 08/18/23 15:12 08/18/23 15:12 08/18/23 15:28 08/18/23 15:34 Oxygen Flow Rate (L/min) 1 Oxygen Delivery Method Nasal Cannula Weight: 195 lb 5.273 oz Body Mass Index (BMI) 36.8 Intake & Output: Intake and Output for Last 24 Hours 08/16/23 08/17/23 08/18/23 23:59 23:59 23:59 Intake Total 1547.75 / 1547.75 2230 / 2230 4648.33 / 4648.33 Output Total 3150 / 3150 2180 / 2180 750 / 750 Balance -1602.25 / -1602.25 50 / 50 3898.33 / 3898.33 Lab / Micro Data 08/17/23 04:53 08/17/23 04:53 Labs: Laboratory Results - last 24 hr 08/17/23 16:13: POC Glucose 291 H 08/17/23 22:25: POC Glucose 115 H 08/18/23 00:24: POC Glucose 167 H 08/18/23 06:39: POC Glucose 151 H 08/18/23 11:25: POC Glucose 215 H Micro: Microbiology 08/13/23 16:20 Urine Catheter - Catheter Urine Culture - Final ESBL Escherichia coli Radiography Diagnostic Testing: Radiology Impression Endo Retro Cholangiopancreatogram 08/16/23 15:10 IMPRESSION: As above. Electronically Signed: Dannie Handley MD at 12:25 EST , Physical Exam Narrative Sleeping today, no fever, no events overnight Const no apparent distress Resp normal air movement and clear to auscultation bilaterally Cardio regular rate and regular rhythm GI soft to palpation, non-tender and non-distended Skin no rashes or lesions noted Assessment & Plan Assessment/Plan (1) Choledocholithiasis: (2) Elevated transaminase level: (3) Complicated urinary tract infection: (4) Encephalopathy acute: PLAN: Plan Patient is a 68-year-old lady admitted with altered mental status. An assessment of acute encephalopathy secondary to infectious encephalopathy from cystitis made. Patient was also found to have elevated transaminases thought nas secondary to common bile duct stone. Status post ERCP with stone removal and stent placement. I will put her on lactated Ringer's. It is a possibility that she has some local inflammation from the stent and contrast used during the procedure. Hopefully with administration of IV fluids with stents typical treatment that she was started to get better regarding pain. She is tolerating a diet at this. Continue to monitor. She is feeling better and is tolerating a normal diet. Charges/Coding Visit Charges Inpatient E&M: 52484 Subs Hosp L3 08/18/23 1622 <Electronically signed by Jeff Lewis DO> Cosigner Signature (if applicable): CC: ~ Signed [facility] Work Phone: [phone]) 969-374511-27-2023 Progress note Author Syed Montanez [facility] August 18, 2023 1:38pm Note Date/Time August 18, 2023 1:38pm [facility] Medical Records Department [address] [place] [address] Progress Note - Infect Disease 08/18/231335 MR#: [id number] Acct: [id number] Name: TAMIA PANDA Rep #:[id number] : 1955 68 From: Syed sotomayor MD PCP: Dr. Bhupendra Oliveira MD Status :ADM IN Location: [place] [address] Physical Exam Narrative Sleeping today, no fever, no events overnight Const no apparent distress Resp normal air movement and clear to auscultation bilaterally Cardio regular rate and regular rhythm GI soft to palpation, non-tender and non-distended Skin no rashes or lesions noted ID ID: Route of nutrition/ use of supplements: [] Nutritional Intake: [] IV Site: [] Maradiaga Catheter: [] Assessment & Plan Assessment/Plan (1) Complicated urinary tract infection: PLAN: Ucx with esbl ecoli uti. MRCP shows bile duct dilation, ERCP done 08/16. On naila. Plan on stopping tomorrow or the next day. Will follow (2) Encephalopathy acute: (3) Common bile duct dilatation: 08/18/231337 <Electronically signed by Syed Montanez MD> Cosigner Signature (if applicable): CC: ~ Signed [facility] Work Phone: [phone]) [phone] Progress note Author Reyna Champagne [facility] August 18, 2023 11:31am Note Date/Time August 18, 2023 9:[address] [place] [address] Medical Records Department [address] [place] [address] Progress Note - Hospitalist 08/18/23 0942 MR#: [id number] Acct: [id number] Name: TAMIA PANDA Rep #:[id number] : 1955 68 From: Reyna Champagne MD PCP: Dr. Bhupendra Oliveira MD Status :ADM IN Location: [place] [address] Reason for Visit Reason for Visit: Diagnoses Encephalopathy, unspecified (08/13/23) Calculus of bile duct without cholangitis or cholecystitis without obstruction (08/13/23) Other specified diseases of biliary tract (08/13/23) Urinary tract infection, site not specified (08/13/23) Elevation of levels of liver transaminase levels (08/13/23) Presence of coronary angioplasty implant and graft (08/13/23) Subjective Subjective Patient reports some generalized aches, reports her abdominal pain is better today Objective Data Objective Data Vital Signs: Vital Signs Temp Pulse Resp BP Pulse Ox O2 Del Method O2 Flow Rate 98.3 F 88 18 100/59 L 95 Nasal Cannula 1 08/18/23 09:32 08/18/23 09:32 08/18/23 09:32 08/18/23 09:32 08/18/23 09:32 08/18/23 09:32 08/18/23 09:32 Oxygen Flow Rate (L/min) 1 Oxygen Delivery Method Nasal Cannula Weight: 88.6 kg Body Mass Index (BMI) 36.8 Intake & Output: Intake and Output for Last 24 Hours 08/16/23 08/17/23 08/18/23 23:59 23:59 23:59 Intake Total 1547.75 / 1547.75 2230 / 2230 2220 / 2220 Output Total 3150 / 3150 2180 / 2180 750 / 750 Balance -1602.25 / -1602.25 50 / 50 1470 / 1470 Lab / Micro Data 08/17/23 04:53 08/17/23 04:53 Labs: Laboratory Results - last 24 hr 08/17/23 11:38: POC Glucose 257 H 08/17/23 16:13: POC Glucose 291 H 08/17/23 22:25: POC Glucose 115 H 08/18/23 00:24: POC Glucose 167 H 08/18/23 06:39: POC Glucose 151 H Micro: Microbiology 08/13/23 16:20 Urine Catheter - Catheter Urine Culture - Final ESBL Escherichia coli Physical Exam Narrative General: Alert, oriented, no apparent distress HEENT: Atraumatic, normocephalic Eyes: Anicteric, normal conjunctiva, extraocular movements grossly intact Neck: Supple Respiratory: Somewhat diminished at the bases, suspect in part due to habitus, normal respiratory effort Cardiovascular: Regular rate and rhythm GI: Soft, nontender, nondistended Extremities: No edema Musculoskeletal: Moving all extremities Neuro: No overt focal neurological deficits Skin: No rashes appreciated Psych: Cooperative Assessment & Plan Assessment/Plan (1) Common bile duct dilatation: (2) Elevated transaminase level: (3) Complicated urinary tract infection: (4) Encephalopathy acute: PLAN: Plan #Acute metabolic encephalopathy secondary to ESBL UTI -Improved with treatment of underlying etiology -Patient presently on Merrem -Infectious disease following #Transaminitis secondary to choledocholithiasis -Status post ERCP 08/16/2023 -GI following -Presently on Merrem -Also receiving IVF #Paroxysmal atrial fibrillation -Continue metoprolol, full dose AC had been held but is now been resumed. Additionally patient has aspirin, Plavix, and Eliquis on home med list, but it appears that aspirin was supposed to be discontinued and she was only supposed to be taking Plavix and Eliquis based on most recent cardiology visit, resumed Eliquis and Plavix #Hypothyroidism -Continue Synthroid #Type 2 diabetes mellitus -Glucose checks and sliding scale insulin -Continue to adjust Premeal and insulin glargine #Anxiety -Continue Cymbalta and BuSpar #Coronary artery disease -Status post PCI 2003 and 2002, additionally patient had RI with recent in-stentstenosis 06/04/2023 -[id number]-vKSA w/2.25 x 18 mm Resolute [place] RX SU, PTCA alone to in-stent restenosis D1 06/04/23 -Restarted Plavix and Eliquis after discussing with GI today #DVT ppx: Kenton Champagne MD Time spent in the patient's overall evaluation,decision-making process, review of diagnostic data, adjustment of management, discussion with other providers, nursing nursing and ancillary staff involved in patient's care documentation, 37Minutes Charges/Coding Visit Charges Inpatient E&M: 74263 Subs Hosp L2 08/18/23 1131 <Electronically signed by Reyna Champagne MD> Cosigner Signature (if applicable): CC: ~ Signed [facility] Work Phone: 1([phone]) 129-200411-26-2023 Progress note Author Jeff Lewis [facility] August 17, 2023 2:53pm Note Date/Time August 17, 2023 2:53pm [facility] Medical Records Department [address] [place] [address] Progress Note - GI 08/17/23 1451 MR#: [id number] Acct: [id number] Name: TAMIA PANDA Rep #:[id number] : 1955 68 From: Jeff Lewis DO PCP: Dr. Bhupendra Oliveira MD Status :ADM IN Location: [place] [address] Subjective Subjective Patient underwent an ERCP yesterday. She does complain of some mild 4 out of 10pain in right upper quadrant and midepigastric area. She denies any chest pain or shortness of breath Objective Data Objective Data Vital Signs: Vital Signs Temp Pulse Resp BP Pulse Ox O2 Del Method O2 Flow Rate 98.3 F 59 L 18 105/80 99 Nasal Cannula 2 08/17/23 11:54 08/17/23 11:54 08/17/23 11:54 08/17/23 11:54 08/17/23 11:54 08/17/23 11:54 08/17/23 11:54 Oxygen Flow Rate (L/min) 2 Oxygen Delivery Method Nasal Cannula Weight: 192 lb 14.472 oz Body Mass Index (BMI) 36.4 Intake & Output: Intake and Output for Last 24 Hours 08/15/23 08/16/23 08/17/23 23:59 23:59 23:59 Intake Total 3345 / 3345 1547.75 / 1547.75 510 / 510 Output Total 1300 / 2300 3150 / 3150 630 / 630 Balance 2045 / 1045 -1602.25 / -1602.25 -120 / -120 Lab / Micro Data 08/17/23 04:53 08/17/23 04:53 Labs: Laboratory Results - last 24 hr 08/16/23 16:04: POC Glucose 165 H 08/16/23 20:56: POC Glucose 171 H 08/16/23 22:36: Troponin I High Sens 11 08/17/23 00:12: POC Glucose 144 H 08/17/23 04:53: WBC 6.4, RBC 3.94 L, Hgb 12.3, Hct 38.7, MCV 98.2, MCH 31.2, MCHC 31.8 L, RDW Std Deviation 53.6 H, RDW Coeff of Aubrey 14.7 H, Plt Count 206, MPV 10.4, Immature Gran % (Auto) 0.500, Neut % (Auto) 72.1 H, Lymph % (Auto) 11.6 L, Winn % (Auto) 10.5 H, Eos % (Auto) 5.0, Baso % (Auto) 0.3, Absolute Neuts (auto) 4.6, Absolute Lymphs (auto) 0.74 L, Nucleated RBC % 0, Sodium 137, Potassium 3.8, Chloride 99, Carbon Dioxide 32.0, Anion Gap 6, BUN 20 H, Creatinine 1.54 H, Estim Creat Clear Calc 26.38, Est GFR (MDRD) Af Amer 43 L, Est GFR (MDRD) Non-Af 36 L, BUN/Creatinine Ratio 13.0, Glucose 134 H, Calcium 9.0, Lipase 16 08/17/23 05:55: POC Glucose 129 H 08/17/23 08:00: POC Glucose 143 H 08/17/23 11:38: POC Glucose 257 H Micro: Microbiology 08/13/23 16:20 Urine Catheter - Catheter Urine Culture - Final ESBL Escherichia coli Physical Exam Narrative GENERAL: cooperative HEENT: Atraumatic; normocephalic EYES; Anicteric, Normal Conjunctiva NECK; supple, normal thyroid, RESPIRATORY: Diminished to auscultation CARDIOVASCULAR: Regular S1 S2, GI: soft, normoactive bowel sounds, : No Renal angle tenderness; EXTREMITIES: No edema, no clubbing, MUSCULOSKELETAL: no muscle wasting NEURO: Awake; no lateralizing signs. SKIN: No Rash PSYCH; Flat affect Assessment & Plan Assessment/Plan (1) Choledocholithiasis: PLAN: Status post ERCP with stone removal and stent placement. I will put her on lactated Ringer's. It is a possibility that she has some local inflammation from the stent and contrast used during the procedure. Hopefully with administration of IV fluids with stents typical treatment that she was started to get better regarding pain. She is tolerating a diet at this. Continue to monitor. Charges/Coding Visit Charges Inpatient E&M: 83710 Subs Hosp L3 08/17/23 1451 <Electronically signed by Jeff Friend DO> Cosigner Signature (if applicable): CC: ~ Signed [facility] Work Phone: 1(143) 794-989011-26-2023 Progress note Author Yvon Hogan [facility] August 17, 2023 8:02am Note Date/Time August 17, 2023 7:27am [facility] Medical Records Department [address] [place] [address] Progress Note - Hospitalist 08/17/23725 MR#: [id number] Acct: [id number] Name: TAMIA PANDA Rep #:[id number] : 1955 68 From: Yvon Hogan MD PCP: Dr. Bhupendra Oliveira MD Status :ADM IN Location: [place] [address]- Reason for Visit Reason for Visit: Diagnoses Encephalopathy, unspecified (08/13/23) Other specified diseases of biliary tract (08/13/23) Urinary tract infection, site not specified (08/13/23) Elevation of levels of liver transaminase levels (08/13/23) Presence of coronary angioplasty implant and graft (08/13/23) Subjective Subjective Patient underwent ERCP with biliary stent placement on 08/16/2023 seen this morning complains of right upper quadrant discomfort as well as persistent cough Objective Data Objective Data Vital Signs: Vital Signs Temp Pulse Resp BP Pulse Ox O2 Del Method O2 Flow Rate 98.3 F 59 L 18 105/80 99 Nasal Cannula 2 08/17/23 06:00 08/17/23 06:00 08/17/23 06:00 08/17/23 06:00 08/17/23 06:00 08/17/23 06:00 08/17/23 06:00 Oxygen Flow Rate (L/min) 2 Oxygen Delivery Method Nasal Cannula Weight: 87.5 kg Body Mass Index (BMI) 36.4 Intake & Output: Intake and Output for Last 24 Hours 08/15/23 08/16/23 08/17/23 23:59 23:59 23:59 Intake Total 3345 / 3345 1547.75 / 1547.75 270 / 270 Output Total 1300 / 2300 3150 / 3150 280 / 280 Balance 2045 / 1045 -1602.25 / -1602.25 -10 / -10 Lab / Micro Data 08/17/23 04:53 08/17/23 04:53 Labs: Laboratory Results - last 24 hr 08/16/23 08:57: POC Glucose 192 H 08/16/23 12:15: POC Glucose 228 H 08/16/23 16:04: POC Glucose 165 H 08/16/23 20:56: POC Glucose 171 H 08/16/23 22:36: Troponin I High Sens 11 08/17/23 00:12: POC Glucose 144 H 08/17/23 04:53: WBC 6.4, RBC 3.94 L, Hgb 12.3, Hct 38.7, MCV 98.2, MCH 31.2, MCHC 31.8 L, RDW Std Deviation 53.6 H, RDW Coeff of Aubrey 14.7 H, Plt Count 206, MPV 10.4, Immature Gran % (Auto) 0.500, Neut % (Auto) 72.1 H, Lymph % (Auto) 11.6 L, Winn % (Auto) 10.5 H, Eos % (Auto) 5.0, Baso % (Auto) 0.3, Absolute Neuts (auto) 4.6, Absolute Lymphs (auto) 0.74 L, Nucleated RBC % 0, Sodium 137, Potassium 3.8, Chloride 99, Carbon Dioxide 32.0, Anion Gap 6, BUN 20 H, Creatinine 1.54 H, Estim Creat Clear Calc 26.38, Est GFR (MDRD) Af Amer 43 L, EstGFR (MDRD) Non-Af 36 L, BUN/Creatinine Ratio 13.0, Glucose 134 H, Calcium 9.0, Lipase 16 08/17/23 05:55: POC Glucose 129 H Micro: Microbiology 08/13/23 16:20 Urine Catheter - Catheter Urine Culture - Final ESBL Escherichia coli Physical Exam Narrative GENERAL: cooperative HEENT: Atraumatic; normocephalic EYES; Anicteric, Normal Conjunctiva NECK; supple, normal thyroid, RESPIRATORY: Diminished to auscultation CARDIOVASCULAR: Regular S1 S2, GI: soft, normoactive bowel sounds, : No Renal angle tenderness; EXTREMITIES: No edema, no clubbing, MUSCULOSKELETAL: no muscle wasting NEURO: Awake; no lateralizing signs. SKIN: No Rash PSYCH; Flat affect Assessment & Plan Assessment/Plan (1) Common bile duct dilatation: (2) Elevated transaminase level: (3) Complicated urinary tract infection: (4) Encephalopathy acute: PLAN: Plan Patient is a 68-year-old lady admitted with altered mental status. An assessment of acute encephalopathy secondary to infectious encephalopathy from cystitis made. Patient was also found to have elevated transaminases thought nas secondary to common bile duct stone. Admitted to the intensive care unit forfurther management 1. Acute metabolic encephalopathy ? Secondary to acute transaminitis and cystitis admitted initially to the ICU with plans to initiate Precedex drip patient did not require it. ? 08/15/2023; patient transferred from ICU to progressive care unit. 2. Acute transaminitis ? Patient admitted to ICU as stated above MRCP ordered per recommendations from GI with consultation placed repeat labs ordered for a.m. ? 08/15/2023; patient seen in consultation by Dr. Lewis with GI his notes and recommendations including MRCP and possible ERCP noted. ? 08/16/2023;MRCP day prior did show choledocholithiasis with moderate biliary dilation.. Plan is for patient to undergo ERCP. ? 08/17/2023 patient underwent ERCP with biliary stent placement details of procedure as below Impressions - Minor papilla not seen. - The biliary system were markedly dilated, with a stone causing an obstruction. - The patient has had a cholecystectomy. - Choledocholithiasis was found. Complete removal was accomplished by biliary sphincterotomy and balloon extraction. - A biliary sphincterotomy was performed. - The biliary tree was swept. - The left main hepatic duct was successfully dilated. - One temporary stent was placed into the common bile duct. 3. Acute cystitis ? Patient started on on Zosyn. Culture sent we will follow-up on result - Patient was transferred from the ICU to progressive care unit. Urine culture so far positive ESBL Escherichia coli. Consult placed to ID ? 08/16/2023; Patient antibiotic therapy for her ESBL switched from Zosyn to meropenem 4. Paroxysmal A-fib ? Patient had elevated rate on admission which has since improved 5. Coronary artery disease ? With previous PCI in 2003 in 2002 currently on guideline directed medical therapy 6. Hypertension - Blood pressure controlled, home medications continued with dose adjustment as needed 7. Dyslipidemia ? Patient statin therapy held in view of her elevated transaminases 8. Diabetes mellitus type II -patient's oral hypoglycemics held. Placed on long acting insulin, Accu-Cheks a.c. and at bedtime and covered with sliding scale insulin ? 08/15/2023 patient blood glucose markedly elevated in view of patient being ondextrose which has since been discontinued adjusted insulin regimen 9. Class II obesity with BMI of 37.8 ? Complicating care weight loss advised 10. Gout ? Patient's allopurinol continued 11. COPD ? Currently not in exacerbation 12. Osteoarthritis -pain meds as needed 13. Anemia - Secondary to chronic disorder monitoring H&H and transfuse if patient becomes symptomatic or hemoglobin falls below 7 14. DVT prophylaxis ? SC heparin for now 15. Physical deconditioning - Requested for PT OT eval and social welfare research worker to assist with discharge planning Time spent in the patient's overall evaluation,decision-making process, review of diagnostic data, adjustment of management, discussion with other providers, nursing nursing and ancillary staff involved in patient's care documentation, 40minutes Charges/Coding Visit Charges Inpatient E&M: 33872 Subs Hosp L2 08/17/23 0802 <Electronically signed by Yvon Hogan MD> Cosigner Signature (if applicable): CC: ~ Signed [facility] Work Phone: 1(902) 433-789011-25-2023 Procedure [facility] 08-16-2023 Procedure [facility]-25-2023 Progress note Author Yvon Hogan [facility] August 16, 2023 10:19am Note Date/Time August 16, 2023 8:17am [facility] Medical Records Department [address] [place] [address] Progress Note - Hospitalist 08/16/23815 MR#: [id number] Acct: [id number] Name: TAMIA PANDA Rep #:[id number] : 1955 68 From: Yvon Hogan MD PCP: Dr. Bhupendra Oliveira MD Status :ADM IN Location: [place] [address] Reason for Visit Reason for Visit: Diagnoses Encephalopathy, unspecified (08/13/23) Other specified diseases of biliary tract (08/13/23) Urinary tract infection, site not specified (08/13/23) Elevation of levels of liver transaminase levels (08/13/23) Presence of coronary angioplasty implant and graft (08/13/23) Subjective Subjective MRCP day prior did show choledocholithiasis with moderate biliary dilation.. Plan is for patient to undergo ERCP. Patient antibiotic therapy for her ESBL switched from Zosyn to meropenem Objective Data Objective Data Vital Signs: Vital Signs Temp Pulse Resp BP Pulse Ox O2 Del Method O2 Flow Rate 98.0 F 84 16 94/64 100 Nasal Cannula 2 08/16/23 07:52 08/16/23 07:52 08/16/23 07:52 08/16/23 07:52 08/16/23 07:52 08/16/23 07:52 08/16/23 07:52 Oxygen Flow Rate (L/min) 2 Oxygen Delivery Method Nasal Cannula Weight: 89.5 kg Body Mass Index (BMI) 37.3 Intake & Output: Intake and Output for Last 24 Hours 08/14/23 08/15/23 08/16/23 23:59 23:59 23:59 Intake Total 2860 / 2860 3345 / 3345 420 / 420 Output Total 640 / 640 1300 / 2300 1700 / 1700 Balance 2220 / 2220 2045 / 1045 -1280 / -1280 Lab / Micro Data 08/16/23 05:51 08/16/23 05:51 Labs: Laboratory Results - last 24 hr 08/15/23 11:31: POC Glucose 277 H 08/15/23 17:10: POC Glucose 255 H 08/15/23 22:47: POC Glucose 249 H 08/16/23 00:18: POC Glucose 254 H 08/16/23 05:51: WBC 6.7, RBC 3.77 L, Hgb 11.7 L, Hct 37.3, MCV 98.9, MCH 31.0, MCHC 31.4 L, RDW Std Deviation 54.5 H, RDW Coeff of Aubrey 15.0 H, Plt Count 200, MPV 10.6, Immature Gran % (Auto) 0.400, Neut % (Auto) 73.8 H, Lymph % (Auto) 10.6 L, Winn % (Auto) 9.1, Eos % (Auto) 6.0 H, Baso % (Auto) 0.1, Absolute Neuts(auto) 4.9, Absolute Lymphs (auto) 0.71 L, Nucleated RBC % 0, Sodium 138, Potassium 4.0, Chloride 103, Carbon Dioxide 30.0, Anion Gap 5, BUN 19 H, Creatinine 1.42 H, Estim Creat Clear Calc 28.61, Est GFR (MDRD) Af Amer 47 L, Est GFR (MDRD) Non-Af 39 L, BUN/Creatinine Ratio 13.4, Glucose 218 H, Calcium 9.4, TotalBilirubin 0.70, Direct Bilirubin 0.25, AST 19, ALT 61 H, Alkaline Phosphatase 95, Total Protein 7.4, Albumin 2.7 L, Globulin 4.7 H Micro: Microbiology 08/13/23 16:20 Urine Catheter - Catheter Urine Culture - Final ESBL Escherichia coli Radiography Diagnostic Testing: Radiology Impression MRCP 08/15/23 09:00 IMPRESSION: Choledocholithiasis with moderate biliary dilation. Electronically Signed: Brandon Damon MD (Brooks) at 11:31 EST Reading Location ID and State: [address] [place] [address] , Service support , Physical Exam Narrative GENERAL: cooperative HEENT: Atraumatic; normocephalic EYES; Anicteric, Normal Conjunctiva NECK; supple, normal thyroid, RESPIRATORY: Diminished to auscultation CARDIOVASCULAR: Regular S1 S2, GI: soft, normoactive bowel sounds, : No Renal angle tenderness; EXTREMITIES: No edema, no clubbing, MUSCULOSKELETAL: no muscle wasting NEURO: Awake; no lateralizing signs. SKIN: No Rash PSYCH; Flat affect Assessment & Plan Assessment/Plan (1) Common bile duct dilatation: (2) Elevated transaminase level: (3) Complicated urinary tract infection: (4) Encephalopathy acute: PLAN: Plan Patient is a 68-year-old lady admitted with altered mental status. An assessment of acute encephalopathy secondary to infectious encephalopathy from cystitis made. Patient was also found to have elevated transaminases thought nas secondary to common bile duct stone. Admitted to the intensive care unit forfurther management 1. Acute metabolic encephalopathy ? Secondary to acute transaminitis and cystitis admitted initially to the ICU with plans to initiate Precedex drip patient did not require it. ? 08/15/2023; patient transferred from ICU to progressive care unit. 2. Acute transaminitis ? Patient admitted to ICU as stated above MRCP ordered per recommendations from GI with consultation placed repeat labs ordered for a.m. ? 08/15/2023; patient seen in consultation by Dr. Lewis with GI his notes and recommendations including MRCP and possible ERCP noted. ? 08/16/2023;MRCP day prior did show choledocholithiasis with moderate biliary dilation.. Plan is for patient to undergo ERCP. 3. Acute cystitis ? Patient started on on Zosyn. Culture sent we will follow-up on result - Patient was transferred from the ICU to progressive care unit. Urine culture so far positive ESBL Escherichia coli. Consult placed to ID ? 08/16/2023; Patient antibiotic therapy for her ESBL switched from Zosyn to meropenem 4. Paroxysmal A-fib ? Patient had elevated rate on admission which has since improved 5. Coronary artery disease ? With previous PCI in 2003 in 2002 currently on guideline directed medical therapy 6. Hypertension - Blood pressure controlled, home medications continued with dose adjustment as needed 7. Dyslipidemia ? Patient statin therapy held in view of her elevated transaminases 8. Diabetes mellitus type II -patient's oral hypoglycemics held. Placed on long acting insulin, Accu-Cheks a.c. and at bedtime and covered with sliding scale insulin ? 08/15/2023 patient blood glucose markedly elevated in view of patient being ondextrose which has since been discontinued adjusted insulin regimen 9. Class II obesity with BMI of 37.8 ? Complicating care weight loss advised 10. Gout ? Patient's allopurinol continued 11. COPD ? Currently not in exacerbation 12. Osteoarthritis pain meds as needed 13. Anemia - Secondary to chronic disorder monitoring H&H and transfuse if patient becomes symptomatic or hemoglobin falls below 7 14. DVT prophylaxis ? SC heparin for now Time spent in the patient's overall evaluation,decision-making process, review of diagnostic data, adjustment of management, discussion with other providers, nursing nursing and ancillary staff involved in patient's care documentation, 40minutes Charges/Coding Visit Charges Inpatient E&M: 04775 Subs Hosp L2 08/16/23 1019 <Electronically signed by Yvon Hogan MD> Cosigner Signature (if applicable): CC: ~ Signed [facility] Work Phone: [phone]) 951-474911-24-2023 Consult note Author Syed Montanez [facility] August 15, 2023 2:41pm Note Date/Time August 15, 2023 2:41pm [facility] Medical Records Department [address] [place] [address] Consultation - Infectious Dx 08/15/23 1438 MR#: [id number] Acct: [id number] Name: TAMIA PANDA Rep #:[id number] : 1955 68 From: Syed sotomayor MD PCP: Dr. Bhupendra Oliveira MD Status :ADM IN Location: [place] [address] Assessment & Plan Assessment/Plan (1) Complicated urinary tract infection: PLAN: Ucx with esbl ecoli uti. MRCP shows bile duct dilation, may need ERCP, GIfollowing. Will change zosyn to naila. Will follow, thank you (2) Encephalopathy acute: (3) Common bile duct dilatation: HPI Consult Data Date of Consult: 08/15/23 HPI Narrative Reason for Consultation: uti HPI Narrative: TAMIA PANDA, is a 68 F with h/o DM, obesity, PARESH, CAD, prior cholecystectomy, presented with confusion, upper abd/chest pain, nausea, headache. Admitted on zosyn, feeling better, but abd and chest still hurt. No dysuria, some increasedfrequency as an outpt. Full ROS performed and neg except as noted above. [facility] Medical History Anemia Anxiety Anxiety Arthritis Atherosclerotic heart disease of [place] coronary artery without angina pectoris Back pain Broken rib Cancer Cardiology follow-up encounter Chronic kidney disease (CKD) stage G3b/A1, moderately decreased glomerular filtration rate (GFR) between 30-44 mL/min/1.73 square meter and albuminuria creatinine ratio less than 30 mg/g Chronic respiratory insufficiency Closed intertrochanteric fracture of left femur COPD (chronic obstructive pulmonary disease) DDD (degenerative disc disease) Diabetes Diabetes mellitus type 2 in obese Diabetic neuropathy Difficulty swallowing DVT (deep venous thrombosis) Essential hypertension Excessive bleeding Fall at home Former smoker Gastric reflux Gastroparesis Gastroparesis GERD (gastroesophageal reflux disease) High cholesterol History of cervical cancer History of CHF (congestive heart failure) History of diverticulitis History of DVT (deep vein thrombosis) History of edema History of heart attack History of Holter monitoring History of IBS History of renal disease History of stress test Hypothyroidism Injury of back Insulin dependent diabetes mellitus Lung nodule Migraine headache Mixed hyperlipidemia On home oxygen therapy PARESH (obstructive sleep apnea) Paroxysmal A-fib Paroxysmal atrial fibrillation Post-menopausal Presence of stent in coronary artery (~12/07/03) Pulmonary embolism Pulmonary embolism Pulmonary hypertension RLS (restless legs syndrome) Sleep apnea Thyroid disease Tinnitus Uses wheelchair Walker as ambulation aid Wears dentures Wears glasses Wears hearing aid Home Medications atorvastatin 40 mg tablet 40 mg PO QHS CHOLESTEROL LOWERING 02/03/18 [History Last Taken 06/03/23] levothyroxine 100 mcg tablet 100 mcg PO DAILY THYROID 02/03/18 [History Last Taken 06/03/23] ascorbic acid (vitamin C) 500 mg tablet 500 mg PO DAILY@1700 supplement 05/17/18[History Last Taken 06/03/23] potassium chloride 10 mEq tablet,extended release 10 meq PO DAILY supplement 06/08/19 [History Last Taken 06/03/23] allopurinol 100 mg tablet 100 mg PO DAILY gout 08/11/19 [History Last Taken 06/03/23] furosemide 20 mg tablet 20 mg PO BID FLUID 10/25/20 [History Last Taken 06/03/23] cholecalciferol (vitamin D3) 50 mcg (2,000 unit) capsule 2,000 unit PO DAILY SUPPLEMENT 12/13/20 [History Last Taken 06/02/23] buspirone 10 mg tablet 10 mg PO BID depression 06/12/22 [History Last Taken 06/03/23] duloxetine 60 mg capsule,delayed release 60 mg PO DAILY MENTAL HEALTH 06/12/22 [History Last Taken 06/03/23] fexofenadine 180 mg tablet 180 mg PO DAILY ALLERGIES 06/12/22 [History Last Taken 06/03/23] insulin glargine 100 unit/mL (3 mL) subcutaneous pen (Lantus Solostar U-100 Insulin) 60 unit subcut BID DM 06/12/22 [History Last Taken 06/03/23] insulin lispro 100 unit/mL subcutaneous pen 14 unit subcut BREAKFAST DIABETES 06/12/22 [History Last Taken 06/03/23] insulin lispro 100 unit/mL subcutaneous pen 14 unit subcut LUNCH DIABETES 06/12/22 [History Last Taken 06/02/23] insulin lispro 100 unit/mL subcutaneous pen 24 unit subcut DINNER DIABETES 06/12/22 [History Last Taken 06/02/23] sodium chloride 0.65 % nasal spray aerosol (Saline Mist) 2 spray intranasal TID PRN ALLERGIES 06/12/22 [History Last Taken 06/03/23] nitroglycerin 0.4 mg sublingual tablet 0.4 mg sublingual Q5-15M PRN chest pain #25 tabs 10/21/22 [Rx Last Taken 12/17/22] albuterol sulfate 90 mcg/actuation aerosol inhaler 2 puff inhalation PRN PRN COPD 12/12/22 [History Last Taken 12/17/22] amlodipine 5 mg tablet 5 mg PO DAILY BP 12/12/22 [History Last Taken 06/03/23] ferrous sulfate 325 mg (65 mg iron) tablet 325 mg PO DAILY SUPPLEMENT 12/12/22 [History Last Taken 06/03/23] alendronate 70 mg tablet 70 mg PO TU BONES 06/03/23 [History Last Taken 06/03/23] buspirone 10 mg tablet 15 mg PO QHS 06/03/23 [History Last Taken 06/02/23] nystatin 100,000 unit/gram topical powder ([facility]) 1 applic topical TID PRN SKIN06/03/23 [History Last Taken Unknown] triamcinolone acetonide 0.1 % topical cream 1 applic topical DAILY PRN SKIN 06/03/23 [History Last Taken 06/01/23] ranolazine 500 mg tablet,extended release,12 hr 500 mg PO BID #60 tabs 07/02/23 [Rx Last Taken Unknown] isosorbide mononitrate 120 mg tablet,extended release 24 hr 120 mg PO DAILY HEART #30 tabs 07/30/23 [Rx Last Taken Unknown] apixaban 5 mg tablet (Eliquis) 5 mg PO BID #60 tabs 08/12/23 [Rx Last Taken Unknown] clopidogrel 75 mg tablet 75 mg PO DAILY Pt told me today she ran out 4 days ago!#30 tabs 08/12/23 [Rx Last Taken Unknown] famotidine 20 mg tablet 20 mg PO DAILY #30 tabs 08/12/23 [Rx Last Taken Unknown] aspirin 81 mg tablet,delayed release 81 mg PO DAILY 08/13/23 [History Last Taken Unknown] cyclobenzaprine 10 mg tablet 10 mg PO BID 08/13/23 [History Last Taken Unknown] metoprolol tartrate 100 mg tablet 150 mg PO BID Heart Rate 08/13/23 [History Last Taken Unknown] oxycodone 5 mg tablet 5 mg PO Q8H 08/13/23 [History Last Taken Unknown] Allergy/AdvReac Type Severity Reaction Status Date / Time metoclopramide [From Reglan] Allergy Intermediate Itching Verified 08/13/23 14:50 ciprofloxacin [From Cipro] Allergy Hives Verified 08/13/23 14:50 latex Allergy stallworth me Verified 08/13/23 14:50 niacin Allergy Hives Verified 08/13/23 14:50 [From Niaspan Extended-Release] ranolazine [From Ranexa] Allergy Itching Verified 08/13/23 14:50 orphenadrine AdvReac Mild PT UNABLE Verified 08/13/23 15:19 TO RESPOND-NEEDS F/U adhesive tape AdvReac Other Verified 08/13/23 14:50 orphenadrine citrate AdvReac groggy Verified 08/13/23 14:50 [From Norgesic] Family History Mother CAD (coronary artery disease) Father CAD (coronary artery disease) Brother CAD (coronary artery disease) Asthma Sister Hypertension Sister Diabetes Sister Heart disease Surgical History History of cardiac catheterization History of cholecystectomy History of coronary artery stent placement (06/04/23) History of hernia repair History of knee surgery History of left heart catheterization (LHC) (~09/28/19) History of nasal surgery History of surgery on wrist History of total abdominal hysterectomy History of tubal ligation Hx of surgical procedure Presence of coronary angioplasty implant and graft (~12/07/03) Social History Smoking Status: Former smoker alcohol intake: never substance use type: does not use caffeine: Yes Type: coffee Number of servings: 1 Physical Exam Const alert, oriented x3 and no apparent distress General Appearance: cooperative HEENT normocephalic and head/scalp atraumatic Eyes PERRL and EOMs intact bilaterally Neck supple and No nodes Resp normal air movement and clear to auscultation bilaterally Cardio regular rate and regular rhythm GI soft to palpation and non-distended GI Narrative: mild epigastric soreness Extremity General Extremity: edema Skin no rashes or lesions noted Neuro CN's II-XII intact bilaterally Lab / Micro Data Attestation: I reviewed the patient's lab results. 08/15/23 05:25 08/15/23 05:25 Labs: Laboratory Results - last 24 hr 08/14/23 17:01: POC Glucose 258 H 08/15/23 00:20: POC Glucose 323 H 08/15/23 05:25: WBC 5.7, RBC 3.45 L, Hgb 10.5 L, Hct 34.5 L, MCV 100.0 H, MCH 30.4, MCHC 30.4 L, RDW Std Deviation 54.4 H, RDW Coeff of Aubrey 15.1 H, Plt Count 181, MPV 10.6, Immature Gran % (Auto) 0.700, Neut % (Auto) 70.9 H, Lymph % (Auto) 11.9 L, Winn % (Auto) 10.8 H, Eos % (Auto) 5.2 H, Baso % (Auto) 0.5, Absolute Neuts (auto) 4.1, Absolute Lymphs (auto) 0.68 L, Nucleated RBC % 0, Sodium 140, Potassium 4.1, Chloride 109 H, Carbon Dioxide 26.0, Anion Gap 5, BUN16, Creatinine 1.65 H, Estim Creat Clear Calc 24.62, Est GFR (MDRD) Af Amer 40 L, Est GFR (MDRD) Non-Af 33 L, BUN/Creatinine Ratio 9.7 L, Glucose 371 H, Calcium8.1 L, Phosphorus 2.3 L, Magnesium 2.4, Total Bilirubin 0.70, Direct Bilirubin 0.28, AST 29, ALT 79 H, Alkaline Phosphatase 96, Total Protein 7.1, Albumin 2.6 L, Globulin 4.5 H 08/15/23 05:36: POC Glucose 364 H 08/15/23 11:31: POC Glucose 277 H Micro: Microbiology 08/13/23 16:20 Urine Catheter - Catheter Urine Culture - Preliminary ESBL Escherichia coli Imagaing Radiology Impression MRCP 08/15/23 09:00 IMPRESSION: Choledocholithiasis with moderate biliary dilation. Electronically Signed: Brandon Damon MD (Brooks) at 11:31 EST Reading Location ID and State: [address] [place] [address] , Service support , 08/15/23 1441 <Electronically signed by Syed Montanez MD> Cosigner Signature (if applicable): CC: Dr. Bhupendra Oliveira MD; Dr. Yvon Wilson DO; Dr. Syed Montanez MD~ Signed [facility] Work Phone: 1(807) 282-538711-24-2023 Progress note Author Yvon Hogan [facility] August 15, 2023 10:24am Note Date/Time August 15, 2023 7:42am [facility] Medical Records Department [address] [place] [address] Progress Note - Hospitalist 08/15/23 0738 MR#: [id number] Acct: [id number] Name: TAMIA PANDA Rep #:[id number] : 1955 68 From: Yvon Hogan MD PCP: Dr. Bhupendra Oliveira MD Status :ADM IN Location: [place] [address] Reason for Visit Reason for Visit: Diagnoses Encephalopathy, unspecified (08/13/23) Other specified diseases of biliary tract (08/13/23) Urinary tract infection, site not specified (08/13/23) Elevation of levels of liver transaminase levels (08/13/23) Presence of coronary angioplasty implant and graft (08/13/23) Subjective Subjective Patient was transferred from the ICU to progressive care unit. Urine culture sofar positive ESBL Escherichia coli Objective Data Objective Data Vital Signs: Vital Signs Temp Pulse Resp BP Pulse Ox O2 Del Method O2 Flow Rate 98 F 137 H 22 H 110/90 H 98 Nasal Cannula 1 08/15/23 00:25 08/15/23 05:37 08/15/23 02:27 08/15/23 05:37 08/15/23 00:25 08/15/23 00:27 08/15/23 00:27 Oxygen Flow Rate (L/min) 1 Oxygen Delivery Method Nasal Cannula Weight: 89.9 kg Body Mass Index (BMI) 37.4 Intake & Output: Intake and Output for Last 24 Hours 08/13/23 08/14/23 08/15/23 23:59 23:59 23:59 Intake Total 58.1 / 58.1 2860 / 2860 1425 / 1425 Output Total 640 / 640 1300 / 1300 Balance 58.1 / 58.1 2220 / 2220 125 / 125 Lab / Micro Data 08/15/23 05:25 08/15/23 05:25 Labs: Laboratory Results - last 24 hr 08/14/23 06:30: Ammonia 38.0 H 08/14/23 11:40: POC Glucose 205 H 08/14/23 17:01: POC Glucose 258 H 08/15/23 00:20: POC Glucose 323 H 08/15/23 05:25: WBC 5.7, RBC 3.45 L, Hgb 10.5 L, Hct 34.5 L, MCV 100.0 H, MCH 30.4, MCHC 30.4 L, RDW Std Deviation 54.4 H, RDW Coeff of Aubrey 15.1 H, Plt Count 181, MPV 10.6, Immature Gran % (Auto) 0.700, Neut % (Auto) 70.9 H, Lymph % (Auto) 11.9 L, Winn % (Auto) 10.8 H, Eos % (Auto) 5.2 H, Baso % (Auto) 0.5, Absolute Neuts (auto) 4.1, Absolute Lymphs (auto) 0.68 L, Nucleated RBC % 0, Sodium 140, Potassium 4.1, Chloride 109 H, Carbon Dioxide 26.0, Anion Gap 5, BUN16, Creatinine 1.65 H, Estim Creat Clear Calc 24.62, Est GFR (MDRD) Af Amer 40 L, Est GFR (MDRD) Non-Af 33 L, BUN/Creatinine Ratio 9.7 L, Glucose 371 H, Calcium8.1 L, Phosphorus 2.3 L, Magnesium 2.4, Total Bilirubin 0.70, Direct Bilirubin 0.28, AST 29, ALT 79 H, Alkaline Phosphatase 96, Total Protein 7.1, Albumin 2.6 L, Globulin 4.5 H 08/15/23 05:36: POC Glucose 364 H Micro: Microbiology 08/13/23 16:20 Urine Catheter - Catheter Urine Culture - Preliminary GNR lactose food or baggage handling rampman Physical Exam Narrative GENERAL: cooperative HEENT: Atraumatic; normocephalic EYES; Anicteric, Normal Conjunctiva NECK; supple, normal thyroid, RESPIRATORY: Diminished to auscultation CARDIOVASCULAR: Regular S1 S2, GI: soft, normoactive bowel sounds, : No Renal angle tenderness; EXTREMITIES: No edema, no clubbing, MUSCULOSKELETAL: no muscle wasting NEURO: Awake; no lateralizing signs. SKIN: No Rash PSYCH; Flat affect Assessment & Plan Assessment/Plan (1) Common bile duct dilatation: (2) Elevated transaminase level: (3) Complicated urinary tract infection: (4) Encephalopathy acute: PLAN: Plan Patient is a 68-year-old lady admitted with altered mental status. An assessment of acute encephalopathy secondary to infectious encephalopathy from cystitis made. Patient was also found to have elevated transaminases thought nas secondary to common bile duct stone. Admitted to the intensive care unit forfurther management 1. Acute metabolic encephalopathy ? Secondary to acute transaminitis and cystitis admitted initially to the ICU with plans to initiate Precedex drip patient did not require it. ? 08/15/2023; patient transferred from ICU to progressive care unit. 2. Acute transaminitis ? Patient admitted to ICU as stated above MRCP ordered per recommendations from GI with consultation placed repeat labs ordered for a.m. ? 08/15/2023; patient seen in consultation by Dr. Lewis with GI his notes and recommendations including MRCP and possible ERCP noted. 3. Acute cystitis ? Patient started on on Zosyn. Culture sent we will follow-up on result - Patient was transferred from the ICU to progressive care unit. Urine culture so far positive ESBL Escherichia coli. Consult placed to ID 4. Paroxysmal A-fib ? Patient had elevated rate on admission which has since improved 5. Coronary artery disease ? With previous PCI in 2003 in 2002 currently on guideline directed medical therapy 6. Hypertension - Blood pressure controlled, home medications continued with dose adjustment as needed 7. Dyslipidemia ? Patient statin therapy held in view of her elevated transaminases 8. Diabetes mellitus type II -patient's oral hypoglycemics held. Placed on long acting insulin, Accu-Cheks a.c. and at bedtime and covered with sliding scale insulin ? 08/15/2023 patient blood glucose markedly elevated in view of patient being ondextrose which has since been discontinued adjusted insulin regimen 9. Class II obesity with BMI of 37.8 ? Complicating care weight loss advised 10. Gout ? Patient's allopurinol continued 11. COPD ? Currently not in exacerbation 12. Osteoarthritis pain meds as needed 13. Anemia - Secondary to chronic disorder monitoring H&H and transfuse if patient becomes symptomatic or hemoglobin falls below 7 14. DVT prophylaxis ? SC heparin for now Time spent in the patient's overall evaluation,decision-making process, review of diagnostic data, adjustment of management, discussion with other providers, nursing nursing and ancillary staff involved in patient's care documentation, 50 Minutes Charges/Coding Visit Charges Inpatient E&M: 64880 Subs Hosp L3 08/15/23 1024 <Electronically signed by Yvon Hogan MD> Cosigner Signature (if applicable): CC: ~ Signed [facility] Work Phone: [phone]) 666-154611-23-2023 Consult note Author Jeff Lewis [facility] August 14, 2023 6:42pm Note Date/Time August 14, 2023 6:40pm [facility] Medical Records Department [address] [place] [address] Consultation - GI 08/14/23 1835 MR#: [id number] Acct: [id number] Name: TAMIA PANDA Rep #:[id number] : 1955 68 From: Jeff Lewis DO PCP: Dr. Bhupendra Oliveira MD Status :ADM IN Location: [place] [address] HPI Consult Data Date of Consult: 08/14/23 HPI Narrative Reason for Consultation: Possible choledocholithiasis HPI Narrative: TAMIA PANDA, is a 68 F who presents right upper quadrant pain and confusion. She has a a past medical history of hypertension, hyperlipidemia, hypothyroidism, DM-2; of unknown control, obesity; with a BMI of 38.4 this admission, PARESH; noncompliant with CPAP, history of Paroxysmal Atrial Fibrillation; on Apixaban, history of CAD; s/p RI and stent (2003) and recent in-stent stenosis (06/04/2023), history of CHF, history of DVT/PE, history of cholecystectomy, history of cervical cancer, CKD; stage III, OA; with chronic back pain, chronic anemia, RLS, GERD, history of UTI and depression. She presented to [facility] ER complaining of chest pain, RUQ pain, confusion and agitation. Almost all of history is obtained from the chartand patient's family due to her auto mental status. According to the records her symptoms began approximately 1 day prior to admission with patient complaining of headache and right upper quadrant pain with obvious confusion. The patient's daughter reported to the ER staff that she had cough and shortness of breath with the patient adding that she was nauseous and was having more frequent stools. In the ER she was diagnosed with a suspected common bile duct stone on gallbladder ultrasound with an AST of 149, ALT of 164 and alkaline phosphatase of 141 with an elevated total bilirubin of 1.5 mg/dL present on admission along with a UA that is positive for acute cystitis; This was complicated by severe infectious encephalopathy requiring 4 point restraints and she was then admitted to the ICU per protocol due to behavior management issues for status expected to be greater than 48 hours. [facility] Medical History Anemia Anxiety Anxiety Arthritis Atherosclerotic heart disease of [place] coronary artery without angina pectoris Back pain Broken rib Cancer Cardiology follow-up encounter Chronic kidney disease (CKD) stage G3b/A1, moderately decreased glomerular filtration rate (GFR) between 30-44 mL/min/1.73 square meter and albuminuria creatinine ratio less than 30 mg/g Chronic respiratory insufficiency Closed intertrochanteric fracture of left femur COPD (chronic obstructive pulmonary disease) DDD (degenerative disc disease) Diabetes Diabetes mellitus type 2 in obese Diabetic neuropathy Difficulty swallowing DVT (deep venous thrombosis) Essential hypertension Excessive bleeding Fall at home Former smoker Gastric reflux Gastroparesis Gastroparesis GERD (gastroesophageal reflux disease) High cholesterol History of cervical cancer History of CHF (congestive heart failure) History of diverticulitis History of DVT (deep vein thrombosis) History of edema History of heart attack History of Holter monitoring History of IBS History of renal disease History of stress test Hypothyroidism Injury of back Insulin dependent diabetes mellitus Lung nodule Migraine headache Mixed hyperlipidemia On home oxygen therapy PARESH (obstructive sleep apnea) Paroxysmal A-fib Paroxysmal atrial fibrillation Post-menopausal Presence of stent in coronary artery (~12/07/03) Pulmonary embolism Pulmonary embolism Pulmonary hypertension RLS (restless legs syndrome) Sleep apnea Thyroid disease Tinnitus Uses wheelchair Walker as ambulation aid Wears dentures Wears glasses Wears hearing aid Home Medications atorvastatin 40 mg tablet 40 mg PO QHS CHOLESTEROL LOWERING 02/03/18 [History Last Taken 06/03/23] levothyroxine 100 mcg tablet 100 mcg PO DAILY THYROID 02/03/18 [History Last Taken 06/03/23] ascorbic acid (vitamin C) 500 mg tablet 500 mg PO DAILY@1700 supplement 05/17/18[History Last Taken 06/03/23] potassium chloride 10 mEq tablet,extended release 10 meq PO DAILY supplement 06/08/19 [History Last Taken 06/03/23] allopurinol 100 mg tablet 100 mg PO DAILY gout 08/11/19 [History Last Taken 06/03/23] furosemide 20 mg tablet 20 mg PO BID FLUID 10/25/20 [History Last Taken 06/03/23] cholecalciferol (vitamin D3) 50 mcg (2,000 unit) capsule 2,000 unit PO DAILY SUPPLEMENT 12/13/20 [History Last Taken 06/02/23] buspirone 10 mg tablet 10 mg PO BID depression 06/12/22 [History Last Taken 06/03/23] duloxetine 60 mg capsule,delayed release 60 mg PO DAILY MENTAL HEALTH 06/12/22 [History Last Taken 06/03/23] fexofenadine 180 mg tablet 180 mg PO DAILY ALLERGIES 06/12/22 [History Last Taken 06/03/23] insulin glargine 100 unit/mL (3 mL) subcutaneous pen (Lantus Solostar U-100 Insulin) 60 unit subcut BID DM 06/12/22 [History Last Taken 06/03/23] insulin lispro 100 unit/mL subcutaneous pen 14 unit subcut BREAKFAST DIABETES 06/12/22 [History Last Taken 06/03/23] insulin lispro 100 unit/mL subcutaneous pen 14 unit subcut LUNCH DIABETES 06/12/22 [History Last Taken 06/02/23] insulin lispro 100 unit/mL subcutaneous pen 24 unit subcut DINNER DIABETES 06/12/22 [History Last Taken 06/02/23] sodium chloride 0.65 % nasal spray aerosol (Saline Mist) 2 spray intranasal TID PRN ALLERGIES 06/12/22 [History Last Taken 06/03/23] nitroglycerin 0.4 mg sublingual tablet 0.4 mg sublingual Q5-15M PRN chest pain #25 tabs 10/21/22 [Rx Last Taken 12/17/22] albuterol sulfate 90 mcg/actuation aerosol inhaler 2 puff inhalation PRN PRN COPD 12/12/22 [History Last Taken 12/17/22] amlodipine 5 mg tablet 5 mg PO DAILY BP 12/12/22 [History Last Taken 06/03/23] ferrous sulfate 325 mg (65 mg iron) tablet 325 mg PO DAILY SUPPLEMENT 12/12/22 [History Last Taken 06/03/23] alendronate 70 mg tablet 70 mg PO TU BONES 06/03/23 [History Last Taken 06/03/23] buspirone 10 mg tablet 15 mg PO QHS 06/03/23 [History Last Taken 06/02/23] nystatin 100,000 unit/gram topical powder (Nyamyc) 1 applic topical TID PRN SKIN06/03/23 [History Last Taken Unknown] triamcinolone acetonide 0.1 % topical cream 1 applic topical DAILY PRN SKIN 06/03/23 [History Last Taken 06/01/23] ranolazine 500 mg tablet,extended release,12 hr 500 mg PO BID #60 tabs 07/02/23 [Rx Last Taken Unknown] isosorbide mononitrate 120 mg tablet,extended release 24 hr 120 mg PO DAILY HEART #30 tabs 07/30/23 [Rx Last Taken Unknown] apixaban 5 mg tablet (Eliquis) 5 mg PO BID #60 tabs 08/12/23 [Rx Last Taken Unknown] clopidogrel 75 mg tablet 75 mg PO DAILY Pt told me today she ran out 4 days ago!#30 tabs 08/12/23 [Rx Last Taken Unknown] famotidine 20 mg tablet 20 mg PO DAILY #30 tabs 08/12/23 [Rx Last Taken Unknown] aspirin 81 mg tablet,delayed release 81 mg PO DAILY 08/13/23 [History Last Taken Unknown] cyclobenzaprine 10 mg tablet 10 mg PO BID 08/13/23 [History Last Taken Unknown] metoprolol tartrate 100 mg tablet 150 mg PO BID Heart Rate 08/13/23 [History Last Taken Unknown] oxycodone 5 mg tablet 5 mg PO Q8H 08/13/23 [History Last Taken Unknown] Allergy/AdvReac Type Severity Reaction Status Date / Time metoclopramide [From Reglan] Allergy Intermediate Itching Verified 08/13/23 14:50 ciprofloxacin [From Cipro] Allergy Hives Verified 08/13/23 14:50 latex Allergy stallworth me Verified 08/13/23 14:50 niacin Allergy Hives Verified 08/13/23 14:50 [From Niaspan Extended-Release] ranolazine [From Ranexa] Allergy Itching Verified 08/13/23 14:50 orphenadrine AdvReac Mild PT UNABLE Verified 08/13/23 15:19 TO RESPOND-NEEDS F/U adhesive tape AdvReac Other Verified 08/13/23 14:50 orphenadrine citrate AdvReac groggy Verified 08/13/23 14:50 [From Norgesic] Family History Mother CAD (coronary artery disease) Father CAD (coronary artery disease) Brother CAD (coronary artery disease) Asthma Sister Hypertension Sister Diabetes Sister Heart disease Surgical History History of cardiac catheterization History of cholecystectomy History of coronary artery stent placement (06/04/23) History of hernia repair History of knee surgery History of left heart catheterization (LHC) (~09/28/19) History of nasal surgery History of surgery on wrist History of total abdominal hysterectomy History of tubal ligation Hx of surgical procedure Presence of coronary angioplasty implant and graft (~12/07/03) Social History Smoking Status: Former smoker alcohol intake: never substance use type: does not use caffeine: Yes Type: coffee Number of servings: 1 ROS ROS Narrative Full review of systems was not possible at this time due to patient's severe infectious encephalopathy. Review of Systems ROS Unobtainable: due to encephalopathy Physical Exam Narrative GENERAL: cooperative HEENT: Atraumatic; normocephalic EYES; Anicteric, Normal Conjunctiva NECK; supple, normal thyroid, RESPIRATORY: Diminished to auscultation CARDIOVASCULAR: Regular S1 S2, GI: soft, normoactive bowel sounds, : No Renal angle tenderness; EXTREMITIES: No edema, no clubbing, MUSCULOSKELETAL: no muscle wasting NEURO: Awake; no lateralizing signs. SKIN: No Rash PSYCH; Flat affect Lab / Micro Data 08/14/23 03:20 08/14/23 03:20 Labs: Laboratory Results - last 24 hr 08/13/23 15:30: Hemoglobin A1c 7.1 H 08/13/23 16:20: Urine Opiates Screen NEGATIVE, Urine Methadone Screen NEGATIVE, Ur Barbiturates Screen NEGATIVE, Ur Phencyclidine Scrn NEGATIVE, Ur AmphetaminesScreen NEGATIVE, MDMA (Ecstasy) Screen NEGATIVE, U Benzodiazepines Scrn NEGATIVE, Urine Cocaine Screen NEGATIVE, U Cannabinoids Screen NEGATIVE, Ur DrugScreen Comment 08/13/23 18:28: Troponin I High Sens 15 08/13/23 23:17: POC Glucose 168 H 08/14/23 03:20: WBC 6.1, RBC 3.16 L, Hgb 9.7 L, Hct 30.7 L, MCV 97.2, MCH 30.7, MCHC 31.6 L, RDW Std Deviation 53.6 H, RDW Coeff of Aubrey 15.0 H, Plt Count 171, MPV 10.3, Immature Gran % (Auto) 0.500, Neut % (Auto) 73.8 H, Lymph % (Auto) 10.4 L, Winn % (Auto) 12.2 H, Eos % (Auto) 2.8, Baso % (Auto) 0.3, Absolute Neuts (auto) 4.5, Absolute Lymphs (auto) 0.63 L, Nucleated RBC % 0, Sodium 142, Potassium 3.4 L, Chloride 107, Carbon Dioxide 29.0, Anion Gap 6, BUN 18, Creatinine 1.24 H, Estim Creat Clear Calc 32.77, Est GFR (MDRD) Af Amer 55 L, Est GFR (MDRD) Non-Af 46 L, BUN/Creatinine Ratio 14.5, Glucose 245 H, Calcium 7.7 L, Phosphorus 2.4 L, Magnesium 2.1, Total Bilirubin 0.90, AST 65 H, ALT 103 H, Alkaline Phosphatase 101, Troponin I High Sens 14, Total Protein 6.3 L, Albumin 2.5 L, Globulin 3.8, Albumin/Globulin Ratio 0.7 L, Triglycerides 130, Cholesterol 128, LDL Cholesterol 57, VLDL Cholesterol 26, HDL Cholesterol 45, TSH 2.65 08/14/23 05:18: POC Glucose 171 H 08/14/23 06:30: Ammonia 38.0 H 08/14/23 11:40: POC Glucose 205 H 08/14/23 17:01: POC Glucose 258 H Micro: Microbiology 08/13/23 16:20 Urine Catheter - Catheter Urine Culture - Preliminary GNR lactose food or baggage handling rampman Assessment & Plan Assessment/Plan (1) Common bile duct dilatation: (2) Elevated transaminase level: (3) Complicated urinary tract infection: (4) Encephalopathy acute: PLAN: Plan Suspected common bile duct stone with hypertransaminasemia complicated by UTI; without hematuria - Admit to ICU. Continue broad-spectrum antibiotics with IV Zosyn and await culture and sensitivity data. Recommend MRCP and possible ERCP... Restart antiplatelet therapy if patient is not going to have an endoscopic procedure. Charges/Coding Visit Charges Inpatient E&M: 59612 Init Hosp L3 08/14/231841 <Electronically signed by Jeff Lewis DO> Cosigner Signature (if applicable): CC: Dr. Bhupendra Oliveira MD; Dr. Yvon Wilson DO~ Signed [facility] Work Phone: 1([phone]) 150-134611-23-2023 Progress note Author Yvon Baumdonato [facility] August 14, 2023 9:52am Note Date/Time August 14, 2023 7:29am [facility] Medical Records Department [address] [place] [id number] Progress Note - Hospitalist 08/14/23 0728 MR#: [id number] Acct: [id number] Name: MTTAMIA Tellez Jennifer Rep #:[id number] : 1955 68 From: Yvon Hogan MD PCP: Dr. Bhupendra Oliveira MD Status :ADM IN Location: ICU ICU01-1 Reason for Visit Reason for Visit: Diagnoses Encephalopathy, unspecified (08/13/23) Other specified diseases of biliary tract (08/13/23) Urinary tract infection, site not specified (08/13/23) Elevation of levels of liver transaminase levels (08/13/23) Presence of coronary angioplasty implant and graft (08/13/23) Subjective Subjective Patient is a 68-year-old lady admitted with altered mental status. An assessment of acute encephalopathy secondary to infectious encephalopathy from cystitis made. Patient was also found to have elevated transaminases thought nas secondary to common bile duct stone. Admitted to the intensive care unit forfurther management Objective Data Objective Data Vital Signs: Vital Signs Temp Pulse Resp BP Pulse Ox O2 Del Method O2 Flow Rate 98.2 F 95 23 H 107/79 96 Nasal Cannula 2 08/14/23 04:00 08/14/23 07:00 08/14/23 07:00 08/14/23 07:00 08/14/23 07:16 08/14/23 07:16 08/14/23 07:16 Oxygen Flow Rate (L/min) 2 Oxygen Delivery Method Nasal Cannula Weight: 89.1 kg Body Mass Index (BMI) 37.0 Intake & Output: Intake and Output for Last 24 Hours 08/12/23 08/13/23 08/14/23 23:59 23:59 23:59 Intake Total 58.1 / 58.1 50 / 50 Output Total 250 / 250 Balance 58.1 / 58.1 -200 / -200 Lab / Micro Data 08/14/23 03:20 08/14/23 03:20 Labs: Laboratory Results - last 24 hr 08/13/23 15:30: WBC 9.2, RBC 3.70 L, Hgb 11.3 L, Hct 36.6 L, MCV 98.9, MCH 30.5,MCHC 30.9 L, RDW Std Deviation 54.4 H, RDW Coeff of Aubrey 15.2 H, Plt Count 206, MPV 10.8, Immature Gran % (Auto) 0.500, Neut % (Auto) 84.7 H, Lymph % (Auto) 4.7L, Winn % (Auto) 8.5, Eos % (Auto) 1.3, Baso % (Auto) 0.3, Absolute Neuts (auto)7.8 H, Absolute Lymphs (auto) 0.43 L, Nucleated RBC % 0, Differential Comment SCANNED, Sodium 136, Potassium 3.5, Chloride 104, Carbon Dioxide 30.0, Anion Gap2 L, BUN 21 H, Creatinine 1.48 H, Estim Creat Clear Calc 27.45, Est GFR (MDRD) Af Amer 45 L, Est GFR (MDRD) Non-Af 37 L, BUN/Creatinine Ratio 14.2, Glucose 213H, Hemoglobin A1c 7.1 H, Lactic Acid 1.5, Calcium 8.3 L, Total Bilirubin 1.50 H,AST 149 H, ALT 164 H, Alkaline Phosphatase 141 H, Troponin I High Sens 13, TotalProtein 7.7, Albumin 3.0 L, Globulin 4.7 H, Albumin/Globulin Ratio 0.6 L 08/13/23 16:20: Urine Color Yellow, Urine Clarity Sl. Cloudy, Urine pH 5.0, Ur Specific [place] 1.015, Urine Protein 30 H, Urine Glucose (UA) Normal, Urine Ketones Negative, Urine Occult Blood 25 H, Urine Nitrite Negative, Urine Bilirubin Negative, Urine Urobilinogen 4 H, Ur Leukocyte Esterase 100 H, Urine RBC 0 SEEN, Urine WBC 5-10 SEEN, Ur Squamous Epith Cells 0-5 SEEN, Urine Bacteria 3+, Urine Mucus 0 SEEN, Urine Opiates Screen NEGATIVE, Urine Methadone Screen NEGATIVE, Ur Barbiturates Screen NEGATIVE, Ur Phencyclidine Scrn NEGATIVE, Ur Amphetamines Screen NEGATIVE, MDMA (Ecstasy) Screen NEGATIVE, U Benzodiazepines Scrn NEGATIVE, Urine Cocaine Screen NEGATIVE, U Cannabinoids Screen NEGATIVE, Ur Drug Screen Comment 08/13/23 18:28: Troponin I High Sens 15 08/13/23 23:17: POC Glucose 168 H 08/14/23 03:20: WBC 6.1, RBC 3.16 L, Hgb 9.7 L, Hct 30.7 L, MCV 97.2, MCH 30.7, MCHC 31.6 L, RDW Std Deviation 53.6 H, RDW Coeff of Aubrey 15.0 H, Plt Count 171, MPV 10.3, Immature Gran % (Auto) 0.500, Neut % (Auto) 73.8 H, Lymph % (Auto) 10.4 L, Winn % (Auto) 12.2 H, Eos % (Auto) 2.8, Baso % (Auto) 0.3, Absolute Neuts (auto) 4.5, Absolute Lymphs (auto) 0.63 L, Nucleated RBC % 0, Sodium 142, Potassium 3.4 L, Chloride 107, Carbon Dioxide 29.0, Anion Gap 6, BUN 18, Creatinine 1.24 H, Estim Creat Clear Calc 32.77, Est GFR (MDRD) Af Amer 55 L, Est GFR (MDRD) Non-Af 46 L, BUN/Creatinine Ratio 14.5, Glucose 245 H, Calcium 7.7 L, Phosphorus 2.4 L, Magnesium 2.1, Total Bilirubin 0.90, AST 65 H, ALT 103 H, Alkaline Phosphatase 101, Troponin I High Sens 14, Total Protein 6.3 L, Albumin 2.5 L, Globulin 3.8, Albumin/Globulin Ratio 0.7 L, Triglycerides 130, Cholesterol 128, LDL Cholesterol 57, VLDL Cholesterol 26, HDL Cholesterol 45, TSH 2.65 08/14/23 05:18: POC Glucose 171 H Radiography Diagnostic Testing: Radiology Impression Chest X-Ray 08/13/23 16:04 IMPRESSION: ASHD. No acute cardiopulmonary pathology Electronically Signed: John Chavez MD at 16:24 EST , Gallbladder Ultrasound 08/13/23 16:34 IMPRESSION: Enlarged diffusely fatty infiltrated liver. Status post cholecystectomy. Marked dilatation of the distal common bile duct without definitive evidence for intraductal stone. There is limited visualization of the pancreas. CT or MRI/MRCP recommended for further evaluation of pancreas and etiology for ductal dilatation Electronically Signed: John Chavez MD at 17:53 EST , Physical Exam Narrative GENERAL: cooperative HEENT: Atraumatic; normocephalic EYES; Anicteric, Normal Conjunctiva NECK; supple, normal thyroid, RESPIRATORY: Diminished to auscultation CARDIOVASCULAR: Regular S1 S2, GI: soft, normoactive bowel sounds, : No Renal angle tenderness; EXTREMITIES: No edema, no clubbing, MUSCULOSKELETAL: no muscle wasting NEURO: Awake; no lateralizing signs. SKIN: No Rash PSYCH; Flat affect Assessment & Plan Assessment/Plan (1) Common bile duct dilatation: (2) Elevated transaminase level: (3) Complicated urinary tract infection: (4) Encephalopathy acute: PLAN: Plan Patient is a 68-year-old lady admitted with altered mental status. An assessment of acute encephalopathy secondary to infectious encephalopathy from cystitis made. Patient was also found to have elevated transaminases thought nas secondary to common bile duct stone. Admitted to the intensive care unit forfurther management 1. Acute metabolic encephalopathy ? Secondary to acute transaminitis and cystitis admitted initially to the ICU with plans to initiate Precedex drip patient did not require it. 2. Acute transaminitis ? Patient admitted to ICU as stated above MRCP ordered per recommendations from GI with consultation placed repeat labs ordered for a.m. 3. Acute cystitis ? Patient started on on Zosyn. Culture sent we will follow-up on result 4. Paroxysmal A-fib ? Patient had elevated rate on admission which has since improved 5. Coronary artery disease ? With previous PCI in 2003 in 2002 currently on guideline directed medical therapy 6. Hypertension - Blood pressure controlled, home medications continued with dose adjustment as needed 7. Dyslipidemia ? Patient statin therapy held in view of her elevated transaminases 8. Diabetes mellitus type II -patient's oral hypoglycemics held. Placed on long acting insulin, Accu-Cheks a.c. and at bedtime and covered with sliding scale insulin 9. Class II obesity with BMI of 37.8 ? Complicating care weight loss advised 10. Gout ? Patient's allopurinol continued 11. COPD ? Currently not in exacerbation 12. Osteoarthritis pain meds as needed 13. DVT prophylaxis ? SC heparin for now Time spent in the patient's overall evaluation,decision-making process, review of diagnostic data, adjustment of management, discussion with other providers, nursing nursing and ancillary staff involved in patient's care documentation, 50 Minutes Charges/Coding Visit Charges Inpatient E&M: 64676 Subs Hosp L3 08/14/23 0952 <Electronically signed by Yvon Hogan MD> Cosigner Signature (if applicable): CC: ~ Signed [facility] Work Phone: 1(735) 650-524811-23-2023 History and physical note Author Yvon Gaviria [facility] August 14, 2023 5:58am Note Date/Time August 13, 2023 6:56pm [facility] Medical Records Department [address] [place] [address] H&P Exam - Hospitalist 08/13/23 185 MR#: [id number] Acct: [id number] Name: TAMIA PANDA Jennifer Rep #:[id number] : 1955 68 From: Yvon Galan DO PCP: Dr. Bhupendra Oliveira MD Status :ADM IN Location: ICU ICU01-1 [facility] - General General Date of Admission: 08/13/23 Date of Service: 08/13/23 Chief Complaint: Chest Pain, RUQ Pain, Confusion and Agitation. HPI Narrative TAMIA PANDA, is a 68 F with a past with a past medical history of essential hypertension, hyperlipidemia, hypothyroidism, DM-2; of unknown control, obesity;with a BMI of 38.4 this admission, PARESH; noncompliant with CPAP, history of Paroxysmal Atrial Fibrillation; on Apixaban, history of CAD; s/p RI and stent (2003) and recent in-stent stenosis (06/04/2023), history of CHF, history of DVT/PE, history of tobacco abuse (quit 2000); with subsequent COPD, history of cholecystectomy, history of cervical cancer, CKD; stage III, OA; with chronic back pain, chronic anemia, RLS, GERD, history of UTI and depression who present[facility] ER complaining of chest pain, RUQ pain, confusion and agitation. Ms. Panda is not a fully-reliable historian at this time since she is agitated and in 4-point restraints since being told she could not go home so information was gathered from chart, medical staff and computer. According to the records her symptoms began approximately 1 day prior to admission with patient complaining of headache and right upper quadrant pain with obvious confusion. The patient's daughter reported to the ER staff that she had cough and shortness of breath with the patient adding that she was nauseous and was having more frequent stools. When pressed about her chest pain she stated it had been present for weeks and when asked to locate it she pointed to her right upper quadrant. In the ER she was diagnosed with a suspected common bile duct stone on gallbladder ultrasound with an AST of 149, ALT of 164 and alkaline phosphatase of 141 with an elevated total bilirubin of 1.5 mg/dL present on admission along with a UA that is positive for acute cystitis; without hematuriacomplicated by severe infectious encephalopathy requiring 4 point restraints andshe was then admitted to the ICU per protocol due to behavior management issues for status expected to be greater than 48 hours. [facility] Medical History Anemia Anxiety Anxiety Arthritis Atherosclerotic heart disease of [place] coronary artery without angina pectoris Back pain Broken rib Cancer Cardiology follow-up encounter Chronic kidney disease (CKD) stage G3b/A1, moderately decreased glomerular filtration rate (GFR) between 30-44 mL/min/1.73 square meter and albuminuria creatinine ratio less than 30 mg/g Chronic respiratory insufficiency Closed intertrochanteric fracture of left femur COPD (chronic obstructive pulmonary disease) DDD (degenerative disc disease) Diabetes Diabetes mellitus type 2 in obese Diabetic neuropathy Difficulty swallowing DVT (deep venous thrombosis) Essential hypertension Excessive bleeding Fall at home Former smoker Gastric reflux Gastroparesis Gastroparesis GERD (gastroesophageal reflux disease) High cholesterol History of cervical cancer History of CHF (congestive heart failure) History of diverticulitis History of DVT (deep vein thrombosis) History of edema History of heart attack History of Holter monitoring History of IBS History of renal disease History of stress test Hypothyroidism Injury of back Insulin dependent diabetes mellitus Lung nodule Migraine headache Mixed hyperlipidemia On home oxygen therapy PARESH (obstructive sleep apnea) Paroxysmal A-fib Paroxysmal atrial fibrillation Post-menopausal Presence of stent in coronary artery (~12/07/03) Pulmonary embolism Pulmonary embolism Pulmonary hypertension RLS (restless legs syndrome) Sleep apnea Thyroid disease Tinnitus Uses wheelchair Walker as ambulation aid Wears dentures Wears glasses Wears hearing aid Home Medications atorvastatin 40 mg tablet 40 mg PO QHS CHOLESTEROL LOWERING 02/03/18 [History Last Taken 06/03/23] levothyroxine 100 mcg tablet 100 mcg PO DAILY THYROID 02/03/18 [History Last Taken 06/03/23] ascorbic acid (vitamin C) 500 mg tablet 500 mg PO DAILY@1700 supplement 05/17/18[History Last Taken 06/03/23] potassium chloride 10 mEq tablet,extended release 10 meq PO DAILY supplement 06/08/19 [History Last Taken 06/03/23] allopurinol 100 mg tablet 100 mg PO DAILY gout 08/11/19 [History Last Taken 06/03/23] furosemide 20 mg tablet 20 mg PO BID FLUID 10/25/20 [History Last Taken 06/03/23] cholecalciferol (vitamin D3) 50 mcg (2,000 unit) capsule 2,000 unit PO DAILY SUPPLEMENT 12/13/20 [History Last Taken 06/02/23] buspirone 10 mg tablet 10 mg PO BID depression 06/12/22 [History Last Taken 06/03/23] duloxetine 60 mg capsule,delayed release 60 mg PO DAILY MENTAL HEALTH 06/12/22 [History Last Taken 06/03/23] fexofenadine 180 mg tablet 180 mg PO DAILY ALLERGIES 06/12/22 [History Last Taken 06/03/23] insulin glargine 100 unit/mL (3 mL) subcutaneous pen (Lantus Solostar U-100 Insulin) 60 unit subcut BID DM 06/12/22 [History Last Taken 06/03/23] insulin lispro 100 unit/mL subcutaneous pen 14 unit subcut BREAKFAST DIABETES 06/12/22 [History Last Taken 06/03/23] insulin lispro 100 unit/mL subcutaneous pen 14 unit subcut LUNCH DIABETES 06/12/22 [History Last Taken 06/02/23] insulin lispro 100 unit/mL subcutaneous pen 24 unit subcut DINNER DIABETES 06/12/22 [History Last Taken 06/02/23] sodium chloride 0.65 % nasal spray aerosol (Saline Mist) 2 spray intranasal TID PRN ALLERGIES 06/12/22 [History Last Taken 06/03/23] nitroglycerin 0.4 mg sublingual tablet 0.4 mg sublingual Q5-15M PRN chest pain #25 tabs 10/21/22 [Rx Last Taken 12/17/22] albuterol sulfate 90 mcg/actuation aerosol inhaler 2 puff inhalation PRN PRN COPD 12/12/22 [History Last Taken 12/17/22] amlodipine 5 mg tablet 5 mg PO DAILY BP 12/12/22 [History Last Taken 06/03/23] ferrous sulfate 325 mg (65 mg iron) tablet 325 mg PO DAILY SUPPLEMENT 12/12/22 [History Last Taken 06/03/23] alendronate 70 mg tablet 70 mg PO TU BONES 06/03/23 [History Last Taken 06/03/23] buspirone 10 mg tablet 15 mg PO QHS 06/03/23 [History Last Taken 06/02/23] nystatin 100,000 unit/gram topical powder (Nyamyc) 1 applic topical TID PRN SKIN06/03/23 [History Last Taken Unknown] triamcinolone acetonide 0.1 % topical cream 1 applic topical DAILY PRN SKIN 06/03/23 [History Last Taken 06/01/23] ranolazine 500 mg tablet,extended release,12 hr 500 mg PO BID #60 tabs 07/02/23 [Rx Last Taken Unknown] isosorbide mononitrate 120 mg tablet,extended release 24 hr 120 mg PO DAILY HEART #30 tabs 07/30/23 [Rx Last Taken Unknown] apixaban 5 mg tablet (Eliquis) 5 mg PO BID #60 tabs 08/12/23 [Rx Last Taken Unknown] clopidogrel 75 mg tablet 75 mg PO DAILY Pt told me today she ran out 4 days ago!#30 tabs 08/12/23 [Rx Last Taken Unknown] famotidine 20 mg tablet 20 mg PO DAILY #30 tabs 08/12/23 [Rx Last Taken Unknown] aspirin 81 mg tablet,delayed release 81 mg PO DAILY 08/13/23 [History Last Taken Unknown] cyclobenzaprine 10 mg tablet 10 mg PO BID 08/13/23 [History Last Taken Unknown] metoprolol tartrate 100 mg tablet 150 mg PO BID Heart Rate 08/13/23 [History Last Taken Unknown] oxycodone 5 mg tablet 5 mg PO Q8H 08/13/23 [History Last Taken Unknown] Allergy/AdvReac Type Severity Reaction Status Date / Time metoclopramide [From Reglan] Allergy Intermediate Itching Verified 08/13/23 14:50 ciprofloxacin [From Cipro] Allergy Hives Verified 08/13/23 14:50 latex Allergy stallworth me Verified 08/13/23 14:50 niacin Allergy Hives Verified 08/13/23 14:50 [From Niaspan Extended-Release] ranolazine [From Ranexa] Allergy Itching Verified 08/13/23 14:50 orphenadrine AdvReac Mild PT UNABLE Verified 08/13/23 15:19 TO RESPOND-NEEDS F/U adhesive tape AdvReac Other Verified 08/13/23 14:50 orphenadrine citrate AdvReac groggy Verified 08/13/23 14:50 [From Norgesic] Family History Mother CAD (coronary artery disease) Father CAD (coronary artery disease) Brother CAD (coronary artery disease) Asthma Sister Hypertension Sister Diabetes Sister Heart disease Surgical History History of cardiac catheterization History of cholecystectomy History of coronary artery stent placement (06/04/23) History of hernia repair History of knee surgery History of left heart catheterization (LHC) (~09/28/19) History of nasal surgery History of surgery on wrist History of total abdominal hysterectomy History of tubal ligation Hx of surgical procedure Presence of coronary angioplasty implant and graft (~12/07/03) Social History Smoking Status: Former smoker alcohol intake: never substance use type: does not use caffeine: Yes Type: coffee Number of servings: 1 ROS ROS Narrative Full review of systems was not possible at this time due to patient's severe infectious encephalopathy. Review of Systems ROS Unobtainable: due to encephalopathy Vital Signs Vital Signs Vital Signs: 08/13/23 14:50 08/13/23 15:20 08/13/23 16:00 Temperature 96.2 F L 98.7 F Temperature Source Temporal Oral Pulse Rate 112 H Respiratory Rate 22 H Respiratory Effort Normal Blood Pressure 134/99 H Blood Pressure Mean 110 Pulse Ox 100 Oxygen Delivery Method Nasal Cannula Oxygen Flow Rate (L/min) 3 08/13/23 16:00 08/13/23 17:22 Temperature Temperature Source Pulse Rate 102 H 110 H Respiratory Rate 26 H 24 H Respiratory Effort Blood Pressure 129/85 H 111/73 Blood Pressure Mean 99 85 Pulse Ox 98 100 Oxygen Delivery Method Nasal Cannula Oxygen Flow Rate (L/min) 3 Weight Weight: 203 lb 0.732 oz Body Mass Index (BMI) 38.3 Physical Exam Const alert Constitutional Narrative: Patient is agitated and in 4-point restraints. General Appearance: uncooperative Orientation / Consciousness: confused HEENT normocephalic, head/scalp atraumatic, hearing grossly normal bilaterally and moist oral mucous membranes Eyes PERRL, EOMs intact bilaterally and conjunctivae normal Neck no lymphadenopathy, supple and no JVD Resp normal respiratory effort, no retractions, no use of accessory muscles and clearto auscultation bilaterally Cardio regular rate and regular rhythm GI normal to inspection, nondistended, normoactive bowel sounds, soft to palpation,non-tender and non-distended GI Narrative: Obese. Extremity normal to inspection Skin Skin Narrative: Patient has no evidence of rash at this time. Neuro CN's II-XII intact bilaterally, moves all extremities and no focal motor deficits Sensorium / Orientation: awake, alert and oriented to person Speech: speech normal Motor Exam: strength 5/5 throughout Psych Psych Narrative: Patient is agitated in 4-point restraints. Mood & Affect: anxious Results Medical Records Data Attestation: I reviewed the patient's medical records Lab / Micro Data Attestation: I reviewed the patient's lab results. Lab results narrative: [facility] Imaging Services [address] [place] [address] Gallbladder MR#: [id number] Acct: [id number] Name: TAMIA PANDA Rep #: [id number] : 1955 F 68 From: John Chavez MD PCP: Dr. Bhupendra Oliveira MD Status: [facility] ER Study: Gallbladder Date of Exam: 08/13/23 Exam# [id number] Ordering Dr: Eleazar Brooks MD STUDY: ABDOMINAL ULTRASOUND - RIGHT UPPER QUADRANT REASON FOR VISIT: Female, 68 years old PAIN -- Elevated transaminases, alkaline phosphatase and b TECHNIQUE: Ultrasound evaluation of the right upper quadrant was performed with real-time and static urban-scale imaging. TECHNICAL QUALITY: Adequate. COMPARISON: None. FINDINGS: Liver: The liver measures 19.9 cm. There is diffusely increased echogenicity of the liver. The bile ducts are within normal limits. There is hepatic color flow. The direction of portal flow is hepatopetal. There is no demonstrated mass lesion. Gallbladder: Nonvisualized status post cholecystectomy. Common Bile Duct (C.B.D.): The common bile duct measures 22 mm. Pancreas: Limited visualization of pancreas due to bowel gas producing artifact.. No definitive evidence for acute pancreatitis or mass. There does appear to be mild dilatation of the pancreatic duct Right Kidney: Normal size of the right kidney. The right kidney measures 10.9 x 5.2 x 4.7 cm. Normal renal cortex.. Small cyst measuring 1.4 x 1 x 1 cm. There is no right hydronephrosis. US/Gallbladder IMPRESSION: Enlarged diffusely fatty infiltrated liver. Status post cholecystectomy. Marked dilatation of the distal common bile duct without definitive evidence for intraductal stone. There is limited visualization of the pancreas. CT or MRI/MRCP recommended for further evaluation of pancreas and etiology for ductal dilatation Electronically Signed: John Chavez MD at 17:53 EST , CC: Dr. Bhupendra Oliveira MD; Dr. Eleazar Brooks MD ~ Reporting Coordinator: Signed 08/14/23 03:20 08/14/23 03:20 Labs: Laboratory Results - last 24 hr 08/13/23 15:30: WBC 9.2, RBC 3.70 L, Hgb 11.3 L, Hct 36.6 L, MCV 98.9, MCH 30.5,MCHC 30.9 L, RDW Std Deviation 54.4 H, RDW Coeff of Aubrey 15.2 H, Plt Count 206, MPV 10.8, Immature Gran % (Auto) 0.500, Neut % (Auto) 84.7 H, Lymph % (Auto) 4.7L, Winn % (Auto) 8.5, Eos % (Auto) 1.3, Baso % (Auto) 0.3, Absolute Neuts (auto)7.8 H, Absolute Lymphs (auto) 0.43 L, Nucleated RBC % 0, Differential Comment SCANNED, Sodium 136, Potassium 3.5, Chloride 104, Carbon Dioxide 30.0, Anion Gap2 L, BUN 21 H, Creatinine 1.48 H, Estim Creat Clear Calc 27.45, Est GFR (MDRD) Af Amer 45 L, Est GFR (MDRD) Non-Af 37 L, BUN/Creatinine Ratio 14.2, Glucose 213H, Lactic Acid 1.5, Calcium 8.3 L, Total Bilirubin 1.50 H, AST 149 H, ALT 164 H,Alkaline Phosphatase 141 H, Troponin I High Sens 13, Total Protein 7.7, Albumin 3.0 L, Globulin 4.7 H, Albumin/Globulin Ratio 0.6 L 08/13/23 16:20: Urine Color Yellow, Urine Clarity Sl. Cloudy, Urine pH 5.0, Ur Specific [place] 1.015, Urine Protein 30 H, Urine Glucose (UA) Normal, Urine Ketones Negative, Urine Occult Blood 25 H, Urine Nitrite Negative, Urine Bilirubin Negative, Urine Urobilinogen 4 H, Ur Leukocyte Esterase 100 H, Urine RBC 0 SEEN, Urine WBC 5-10 SEEN, Ur Squamous Epith Cells 0-5 SEEN, Urine Bacteria 3+, Urine Mucus 0 SEEN Imagaing Radiology Impression Chest X-Ray 08/13/23 16:04 IMPRESSION: ASHD. No acute cardiopulmonary pathology Electronically Signed: John Chavez MD at 16:24 EST , Gallbladder Ultrasound 08/13/23 16:34 IMPRESSION: Enlarged diffusely fatty infiltrated liver. Status post cholecystectomy. Marked dilatation of the distal common bile duct without definitive evidence for intraductal stone. There is limited visualization of the pancreas. CT or MRI/MRCP recommended for further evaluation of pancreas and etiology for ductal dilatation Electronically Signed: John Chavez MD at 17:53 EST , Assessment & Plan Assessment/Plan (1) Common bile duct dilatation: (2) Elevated transaminase level: (3) Complicated urinary tract infection: (4) Encephalopathy acute: PLAN: Plan 1. Suspected common bile duct stone with hypertransaminasemia complicated by UTI; without hematuria - Admit to ICU. Continue broad-spectrum antibiotics withIV Zosyn and await culture and sensitivity data. Check MRCP as per pottery decoration designer recommendation. Patient's ultrasound confirms previous cholecystectomy. Avoid Tylenol to prevent further potential hepatotoxicity. Minimize MAILROOM COORDINATOR active agents in light of #2. Finally, we will consult the pottery decoration designer on-call to see this patient on-rounds in the AM for further recommendations with help appreciated in advance. 2. Severe infectious encephalopathy in the setting of chronic depression requiring 4-point restraints and pink slip arising from #1 - Continue supportivecare monitor for improvement. Check TSH. Check urine tox screen. Finally, patient will be started on a Precedex drip in the ICU if necessary to remove her4-point restraints soon as possible. 3. Paroxysmal atrial fibrillation; with mild rapid ventricular response of 102 bpm present on admission complicating #1 and #2 - Resume home medications as previous with metoprolol but hold apixaban. Consider IV Cardizem if patient's heart rate sustains above 120 bpm and spite of her current treatment. 4. History of coronary artery disease; status post RI with subsequent stent (2003) plus recent in-stent stenosis (06/04/2023) - She denies chest pain at thistime. Serialize troponin. We will wean off nitroglycerin drip as it is felt her pain is likely coming from her common bile duct stone rather than from a cardiac origin in this instance. Resume ranolazine as previous. Restart antiplatelet therapy as soon as okay with gastroenterology. 5. Essential hypertension - Continue home regimen plus give IV hydralazine as needed for systolic blood pressure greater than 160 mmHg. 6. Hyperlipidemia - Hold statin with elevated AST and ALT. Check lipid profilethis admission. 7. Diabetes mellitus type 2; of unknown control - Keep n.p.o. for now. Give the lowest intensity sliding scale insulin with fingerstick blood sugars every 6hours. Check hemoglobin A1c to objectively assess quality of diabetic control. 8. Obesity with a BMI of 38.4 this admission complicated by obstructive sleep apnea; noncompliant with CPAP - Weight loss will be recommended when patient is less confused. We will also encourage CPAP use. 9. History of tobacco abuse; subsequent COPD - Stable with no evidence of flareat this time. Continue as needed nebulizers. 10. Osteoarthritis; with chronic back pain and right shoulder pain exacerbated by 4-point restraints - Continue supportive care and remove restraints as soon as it is safely possible to do so. 11. DVT prophylaxis - SCD's only at this time with likely impending ERCP. We will also hold her aspirin and apixaban for this reason. Total time: Approximately 55 minutes. Charges/Coding Visit Charges Inpatient E&M: 64982 Init Hosp L2 08/14/23 0558 <Electronically signed by Yvon Wilson DO> Cosigner Signature (if applicable): CC: Dr. Bhupendra Oliveira MD; Dr. Yvon Wilson DO~ Signed [facility] Work Phone: [phone]) 830-624211-22-2023 Discharge summary Author Eleazar Brooks [facility] August 13, 2023 7:11pm Note Date/Time August 13, 2023 4:34pm [facility] Medical Records Department [address] [place] [address] Emergency Department Summary 08/13/23 MR#: [id number] Acct: [id number] Name: TAMIA PANDA Rep #:[id number] : 1955 68 From: Eleazar Brooks MD PCP: Dr. Bhupendra Oliveira MD Status :REG ER Location: ED ADDENDUM by Dr. Eleazar Brooks MD on 08/13/23 at 1911 Reveals atrial fibrillation with a rate of 102. QRS duration 78 ms. Q waves T duration 306 ms. [place] is normal. There is minimal nonspecific changes noted. There is no acute ischemic changes noted. 08/13/231910<Electronically signed by Eleazar Boroks MD> Cosigner Signature (if applicable): cc: Dr. Bhupendra Oliveira MD ~* Signed HPI History of Present Illness Chief Complaint: Chest Pain Detail of Chief Complaint: Multiple symptoms per Patient. Daughter is concernedbecause she is not or Informant: patient and family Onset/Context/Timing Onset: - (Per HPI negative) Context: - (Unable to determine) Timing: - (Patient has given different versions of the symptoms.) Quality: Per HPI narrative Location: Head, chest, GI, and respiratory Current Severity: Unable to quantitate Maximum Severity: Unable to quantitate Worsened by: Unknown Relieved by: Per patient nothing Associated Symptoms Associated Symptoms: Patient's thought process is slightly tangential and she isdisoriented. Narrative Narrative: Patient is a 68-year-old woman with history of coronary disease, atrial fibrillation, on long-term anticoagulant, type 2 diabetes, essential hypertension and mixed hyperlipidemia who was sent to the emergency department because of reported chest pain and confusion. When asked where patient was having chest pain she pointed to the right upper quadrant region. Patient is not oriented to time. Patient complains of headache. She initially reported it has been present for some time then she reported it started today. She denies hearing problems. She denies runny nose, congestion and sore throat. She denied cough or shortness of breath. Daughter states she has a cough and shortness of breath. She reports nausea. When asked if she has diarrhea she states that she has nausea. She does not know the color of her stool consistency of her stool. She has had frequency. She also complains of aches and lower extremity exam. Per daughter chest pain started today and her doctor states she normally does not complain of chest pain. Patient informed me she has had chest pain for weeks. Patient is not a good informant and history is limited to what has been documented. [facility] Medical History Anemia Anxiety Anxiety Arthritis Atherosclerotic heart disease of [place] coronary artery without angina pectoris Back pain Broken rib Cancer Cardiology follow-up encounter Chronic kidney disease (CKD) stage G3b/A1, moderately decreased glomerular filtration rate (GFR) between 30-44 mL/min/1.73 square meter and albuminuria creatinine ratio less than 30 mg/g Chronic respiratory insufficiency Closed intertrochanteric fracture of left femur COPD (chronic obstructive pulmonary disease) DDD (degenerative disc disease) Diabetes Diabetes mellitus type 2 in obese Diabetic neuropathy Difficulty swallowing DVT (deep venous thrombosis) Essential hypertension Excessive bleeding Fall at home Former smoker Gastric reflux Gastroparesis Gastroparesis GERD (gastroesophageal reflux disease) High cholesterol History of cervical cancer History of CHF (congestive heart failure) History of diverticulitis History of DVT (deep vein thrombosis) History of edema History of heart attack History of Holter monitoring History of IBS History of renal disease History of stress test Hypothyroidism Injury of back Insulin dependent diabetes mellitus Lung nodule Migraine headache Mixed hyperlipidemia On home oxygen therapy [place] (obstructive sleep apnea) Paroxysmal A-fib Paroxysmal atrial fibrillation Post-menopausal Presence of stent in coronary artery (~12/07/03) Pulmonary embolism Pulmonary embolism Pulmonary hypertension RLS (restless legs syndrome) Sleep apnea Thyroid disease Tinnitus Uses wheelchair Walker as ambulation aid Wears dentures Wears glasses Wears hearing aid Home Medications atorvastatin 40 mg tablet 40 mg PO QHS CHOLESTEROL LOWERING 02/03/18 [History Last Taken 06/03/23] levothyroxine 100 mcg tablet 100 mcg PO DAILY THYROID 02/03/18 [History Last Taken 06/03/23] ascorbic acid (vitamin C) 500 mg tablet 500 mg PO DAILY@1700 supplement 05/17/18[History Last Taken 06/03/23] potassium chloride 10 mEq tablet,extended release 10 meq PO DAILY supplement 06/08/19 [History Last Taken 06/03/23] allopurinol 100 mg tablet 100 mg PO DAILY gout 08/11/19 [History Last Taken 06/03/23] furosemide 20 mg tablet 20 mg PO BID FLUID 10/25/20 [History Last Taken 06/03/23] cholecalciferol (vitamin D3) 50 mcg (2,000 unit) capsule 2,000 unit PO DAILY SUPPLEMENT 12/13/20 [History Last Taken 06/02/23] buspirone 10 mg tablet 10 mg PO BID depression 06/12/22 [History Last Taken 06/03/23] duloxetine 60 mg capsule,delayed release 60 mg PO DAILY MENTAL HEALTH 06/12/22 [History Last Taken 06/03/23] fexofenadine 180 mg tablet 180 mg PO DAILY ALLERGIES 06/12/22 [History Last Taken 06/03/23] insulin glargine 100 unit/mL (3 mL) subcutaneous pen (Lantus Solostar U-100 Insulin) 60 unit subcut BID DM 06/12/22 [History Last Taken 06/03/23] insulin lispro 100 unit/mL subcutaneous pen 14 unit subcut BREAKFAST DIABETES 06/12/22 [History Last Taken 06/03/23] insulin lispro 100 unit/mL subcutaneous pen 14 unit subcut LUNCH DIABETES 06/12/22 [History Last Taken 06/02/23] insulin lispro 100 unit/mL subcutaneous pen 24 unit subcut DINNER DIABETES 06/12/22 [History Last Taken 06/02/23] sodium chloride 0.65 % nasal spray aerosol (Saline Mist) 2 spray intranasal TID PRN ALLERGIES 06/12/22 [History Last Taken 06/03/23] nitroglycerin 0.4 mg sublingual tablet 0.4 mg sublingual Q5-15M PRN chest pain #25 tabs 10/21/22 [Rx Last Taken 12/17/22] albuterol sulfate 90 mcg/actuation aerosol inhaler 2 puff inhalation PRN PRN COPD 12/12/22 [History Last Taken 12/17/22] amlodipine 5 mg tablet 5 mg PO DAILY BP 12/12/22 [History Last Taken 06/03/23] ferrous sulfate 325 mg (65 mg iron) tablet 325 mg PO DAILY SUPPLEMENT 12/12/22 [History Last Taken 06/03/23] alendronate 70 mg tablet 70 mg PO TU BONES 06/03/23 [History Last Taken 06/03/23] buspirone 10 mg tablet 15 mg PO QHS 06/03/23 [History Last Taken 06/02/23] nystatin 100,000 unit/gram topical powder (Nyamyc) 1 applic topical TID PRN SKIN06/03/23 [History Last Taken Unknown] triamcinolone acetonide 0.1 % topical cream 1 applic topical DAILY PRN SKIN 06/03/23 [History Last Taken 06/01/23] ranolazine 500 mg tablet,extended release,12 hr 500 mg PO BID #60 tabs 07/02/23 [Rx Last Taken Unknown] isosorbide mononitrate 120 mg tablet,extended release 24 hr 120 mg PO DAILY HEART #30 tabs 07/30/23 [Rx Last Taken Unknown] apixaban 5 mg tablet (Eliquis) 5 mg PO BID #60 tabs 08/12/23 [Rx Last Taken Unknown] clopidogrel 75 mg tablet 75 mg PO DAILY Pt told me today she ran out 4 days ago!#30 tabs 08/12/23 [Rx Last Taken Unknown] famotidine 20 mg tablet 20 mg PO DAILY #30 tabs 08/12/23 [Rx Last Taken Unknown] aspirin 81 mg tablet,delayed release 81 mg PO DAILY 08/13/23 [History Last Taken Unknown] cyclobenzaprine 10 mg tablet 10 mg PO BID 08/13/23 [History Last Taken Unknown] metoprolol tartrate 100 mg tablet 150 mg PO BID Heart Rate 08/13/23 [History Last Taken Unknown] oxycodone 5 mg tablet 5 mg PO Q8H 08/13/23 [History Last Taken Unknown] Allergy/AdvReac Type Severity Reaction Status Date / Time metoclopramide [From Reglan] Allergy Intermediate Itching Verified 08/13/23 14:50 ciprofloxacin [From Cipro] Allergy Hives Verified 08/13/23 14:50 latex Allergy stallworth me Verified 08/13/23 14:50 niacin Allergy Hives Verified 08/13/23 14:50 [From Niaspan Extended-Release] ranolazine [From Ranexa] Allergy Itching Verified 08/13/23 14:50 orphenadrine AdvReac Mild PT UNABLE Verified 08/13/23 15:19 TO RESPOND-NEEDS F/U adhesive tape AdvReac Other Verified 08/13/23 14:50 orphenadrine citrate AdvReac groggy Verified 08/13/23 14:50 [From Norgesic] Family History Mother CAD (coronary artery disease) Father CAD (coronary artery disease) Brother CAD (coronary artery disease) Asthma Sister Hypertension Sister Diabetes Sister Heart disease Surgical History History of cardiac catheterization History of cholecystectomy History of coronary artery stent placement (06/04/23) History of hernia repair History of knee surgery History of left heart catheterization (LHC) (~09/28/19) History of nasal surgery History of surgery on wrist History of total abdominal hysterectomy History of tubal ligation Hx of surgical procedure Presence of coronary angioplasty implant and graft (~12/07/03) Social History Smoking Status: Former smoker alcohol intake: never substance use type: does not use caffeine: Yes Type: coffee Number of servings: 1 ROS ROS ED Constitutional Constitutional ED: Reports fever(s) and other Details: Per daughter temperature at the physician's office was 100.8. Eyes Eyes: Denies blurry vision or change in vision ENT ENT ED: Denies ear pain or sore throat Cardiovascular Cardiovascular: Reports chest pain; Denies palpitations or racing heartbeat Respiratory/Chest Respiratory/Chest: Reports cough and dyspnea Gastrointestinal Gastrointestinal: Reports nausea; Denies abdominal pain, constipation, diarrhea or vomiting Genitourinary Genitourinary ED: Reports urinary frequency; Denies dysuria or hematuria Musculoskeletal Musculoskeletal: Reports back pain and myalgias; Denies arthralgias Integumentary Denies rash Neurologic Neurologic: Reports headache(s) and weakness; Denies paresthesias Endocrine Endocrinology: Reports cold intolerance and heat intolerance Hematologic/Lymphatic Hematologic/Lymphatic: Reports systems reviewed and no addt'l complaints, exceptas documented EXAM Physical Exam Const Vital Signs: 08/13/23 14:50 08/13/23 15:20 08/13/23 16:00 Temperature 96.2 F L 98.7 F Temperature Source Temporal Oral Pulse Rate 112 H Respiratory Rate 22 H Respiratory Effort Normal Blood Pressure 134/99 H Blood Pressure Mean 110 Pulse Ox 100 Oxygen Delivery Method Nasal Cannula Oxygen Flow Rate (L/min) 3 08/13/23 16:00 08/13/23 17:22 Temperature Temperature Source Pulse Rate 102 H 110 H Respiratory Rate 26 H 24 H Respiratory Effort Blood Pressure 129/85 H 111/73 Blood Pressure Mean 99 85 Pulse Ox 98 100 Oxygen Delivery Method Nasal Cannula Oxygen Flow Rate (L/min) 3 Positive well nourished, well developed and obese General Appearance ED: well developed, NAD and pallor Nutritional Appearance: obese HEENT Reports TM's clear and dry mucous membranes HEENT Narrative: Head is atraumatic and normocephalic. Tympanic Membrane ED: Yes TM's clear Mouth ED: Yes dry mucous membranes Mouth: dry mucous membranes Eyes PERRL and EOMs intact bilaterally General Eye ED: Negative for pale conjunctiva or scleral icterus Neck no lymphadenopathy, supple and no JVD Chest Wall inspection of chest normal and palpation of chest normal Resp normal respiratory effort and clear to auscultation bilaterally Cardio no murmurs Rhythm: abnormal rhythm irregularly irregular GI normal to inspection, nondistended, normoactive bowel sounds, non-tender, non-distended and no masses; Negative for hepatosplenomegaly Back/Spine no CVA tenderness Extremity General Extremety ED: Yes edema and tenderness General Extremity: edema Neuro No oriented x3 and CN's II-XII intact bilaterally Sensorium / Orientation: Negative for alert Psych Attitude: agitated Mood & Affect: depressed Skin no rashes or lesions noted, no wounds and No skin turgor normal General Skin Exam: pallor; Negative for jaundice MDM MDM MDM Narrative Medical decision making narrative: Of history of coronary disease with multiple risk factors for cardiac disease will obtain a troponin and EKG to rule out acute ischemic changes. Because of her respiratory symptoms will obtain chest x-ray and white count. Because of her urinary symptoms will have nurse perform a straight cath to obtain adequate urine specimen is there is no evidence of metabolic or infectious cause we will obtain a CAT scan of her head since she is disoriented and not at baseline per daughter. History & Record Review Discussion w/independent historian: Patient and Family Additional record(s) reviewed:: Prior ED visit and Prior labs Lab Data Attestation: I reviewed the patient's lab results. Lab results narrative: Count is normal with slight shift. Patient has mild anemia with normal indices. Competence of metabolic panel is marked for creatinine of 1.48 with an estimated GFR of 37. Glucose is 213 with a normal CO2 and anion gap. Total bili, AST and ALT are all elevated. Since initially she complained of pain in the right upper quadrant and there is no history of cholecystectomy will obtain ultrasound of the right upper quadrant to determine patient has cholecystitis. Urine reveals specific gravity 1.015, protein, occult blood and leukoesterase. Negative for nitrites. Microscopic reveals no red cells 5-10 WBCs with 3+ bacteria. This was a straight cath specimen. Culture was sent. Patient was treated with a gram of Rocephin. Labs: Laboratory Results - last 24 hr 08/13/23 08/13/23 15:30 16:20 WBC 9.2 RBC 3.70 L Hgb 11.3 L Hct 36.6 L MCV 98.9 MCH 30.5 MCHC 30.9 L RDW Std Deviation 54.4 H RDW Coeff of Aubrey 15.2 H Plt Count 206 MPV 10.8 Immature Gran % (Auto) 0.500 Neut % (Auto) 84.7 H Lymph % (Auto) 4.7 L Winn % (Auto) 8.5 Eos % (Auto) 1.3 Baso % (Auto) 0.3 Absolute Neuts (auto) 7.8 H Absolute Lymphs (auto) 0.43 L Nucleated RBC % 0 Differential Comment SCANNED Sodium 136 Potassium 3.5 Chloride 104 Carbon Dioxide 30.0 Anion Gap 2 L BUN 21 H Creatinine 1.48 H Estim Creat Clear Calc 27.45 Est GFR (MDRD) Af Amer 45 L Est GFR (MDRD) Non-Af 37 L BUN/Creatinine Ratio 14.2 Glucose 213 H Lactic Acid 1.5 Calcium 8.3 L Total Bilirubin 1.50 H AST 149 H ALT 164 H Alkaline Phosphatase 141 H Troponin I High Sens 13 Total Protein 7.7 Albumin 3.0 L Globulin 4.7 H Albumin/Globulin Ratio 0.6 L Urine Color Yellow Urine Clarity Sl. Cloudy Urine pH 5.0 Ur Specific [place] 1.015 Urine Protein 30 H Urine Glucose (UA) Normal Urine Ketones Negative Urine Occult Blood 25 H Urine Nitrite Negative Urine Bilirubin Negative Urine Urobilinogen 4 H Ur Leukocyte Esterase 100 H Urine RBC 0 SEEN Urine WBC 5-10 SEEN Ur Squamous Epith Cells 0-5 SEEN Urine Bacteria 3+ Urine Mucus 0 SEEN Radiography Diagnostic Testing: Clinical Impression(s) from Imaging Studies Chest X-Ray 08/13/23 16:04 IMPRESSION: ASHD. No acute cardiopulmonary pathology Electronically Signed: John Chavez MD at 16:24 EST Reading Location ID and State: [address] [place] [address] Tel , Service support , Gallbladder Ultrasound 08/13/23 16:34 IMPRESSION: Enlarged diffusely fatty infiltrated liver. Status post cholecystectomy. Marked dilatation of the distal common bile duct without definitive evidence for intraductal stone. There is limited visualization of the pancreas. CT or MRI/MRCP recommended for further evaluation of pancreas and etiology for ductal dilatation Electronically Signed: John Chavez MD at 17:53 EST Reading Location ID and State: [facility] / [place] Tel , Service support , Management Discussion w/another healthcare provider: Hospitalist and Display Artist (Her friendon-call for GI was consulted in light of the ultrasound findings. Dr. Lewis recommended MRI/MRCP.) Treatment and Re-Evaluation :: Patient was treated with Rocephin for her UTI. Because she is encephalopathic patient was placed in 4-point restraints because she became belligerent and was not redirectable. Suspect this is due to her encephalopathy. Capacity form wasfilled out. Discharge Plan Dx/Rx/DC Orders Clinical Impression: Encephalopathy acute, Diabetes mellitus type 2 in obese, Complicated urinary tract infection, Elevated transaminase level, Common bile duct dilatation, Paroxysmal atrial fibrillation, History of hypertension, Presence of stent in coronary artery, Pulmonary hypertension, Anemia Disposition Disposition: Acute Care Hospital [facility] Capacity Capacity Assessment Tool Can the patient make a choice & communicate that choice?: No Can the patient understand benefits, risks and alternatives?: No Can the patient make a logical, rational choice?: No Is the choice the patient makes consistent w/ their values?: Unable to Determine Is there an impending, emergent risk to the patient?: Unable to Determine (Thereis a possibility) Does the patient have an Advance Directive?: Unable to Determine Is there a Surrogate Available?: Yes (Daughter left he did not want to take her mother home.) i.e. close relative (spouse, child, parent, sibling)?: Yes (Previously documented daughter left because mother stated she did not want to stay when shewas told she had to be admitted.) What to do if you have Problems For any increased pain, shortness of breath, bleeding, nausea or vomiting, chestpain, or any unexpected problems, contact your Primary Care Provider. Call [facility] ([phone]) or report to the closest Emergency Room. Call 911 if necessary. 08/13/231852 <Electronically signed by Eleazar Brooks MD> Cosigner Signature (if applicable): CC: Dr. Bhupendra Oliveira MD ~ Signed [facility] Work Phone: 1(684) 169-976011-22-2023 Discharge summary Author Eleazar Brooks [facility] August 13, 2023 7:11pm Note Date/Time August 13, 2023 4:34pm [facility] Medical Records Department [address] [place] [id number] Emergency Department Summary 08/13/23 MR#: [id number] Acct: [id number] Name: TAMIA PANDA Rep #:[id number] : [id number] 68 From: Eleazar Brooks MD PCP: Dr. Bhupendra Oliveiar MD Status :REG ER Location: ED ADDENDUM by Dr. Eleazar Brooks MD on 08/13/23 at 1911 Reveals atrial fibrillation with a rate of 102. QRS duration 78 ms. Q waves T duration 306 ms. [place] is normal. There is minimal nonspecific changes noted. There is no acute ischemic changes noted. 08/13/231910<Electronically signed by Eleazar Brooks MD> Cosigner Signature (if applicable): cc: Dr. Bhupendra Oliveira MD ~* Signed HPI History of Present Illness Chief Complaint: Chest Pain Detail of Chief Complaint: Multiple symptoms per Patient. Daughter is concernedbecause she is not or Informant: patient and family Onset/Context/Timing Onset: - (Per HPI negative) Context: - (Unable to determine) Timing: - (Patient has given different versions of the symptoms.) Quality: Per HPI narrative Location: Head, chest, GI, and respiratory Current Severity: Unable to quantitate Maximum Severity: Unable to quantitate Worsened by: Unknown Relieved by: Per patient nothing Associated Symptoms Associated Symptoms: Patient's thought process is slightly tangential and she isdisoriented. Narrative Narrative: Patient is a 68-year-old woman with history of coronary disease, atrial fibrillation, on long-term anticoagulant, type 2 diabetes, essential hypertension and mixed hyperlipidemia who was sent to the emergency department because of reported chest pain and confusion. When asked where patient was having chest pain she pointed to the right upper quadrant region. Patient is not oriented to time. Patient complains of headache. She initially reported it has been present for some time then she reported it started today. She denies hearing problems. She denies runny nose, congestion and sore throat. She denied cough or shortness of breath. Daughter states she has a cough and shortness of breath. She reports nausea. When asked if she has diarrhea she states that she has nausea. She does not know the color of her stool consistency of her stool. She has had frequency. She also complains of aches and lower extremity exam. Per daughter chest pain started today and her doctor states she normally does not complain of chest pain. Patient informed me she has had chest pain for weeks. Patient is not a good informant and history is limited to what has been documented. [facility] Medical History Anemia Anxiety Anxiety Arthritis Atherosclerotic heart disease of [place] coronary artery without angina pectoris Back pain Broken rib Cancer Cardiology follow-up encounter Chronic kidney disease (CKD) stage G3b/A1, moderately decreased glomerular filtration rate (GFR) between 30-44 mL/min/1.73 square meter and albuminuria creatinine ratio less than 30 mg/g Chronic respiratory insufficiency Closed intertrochanteric fracture of left femur COPD (chronic obstructive pulmonary disease) DDD (degenerative disc disease) Diabetes Diabetes mellitus type 2 in obese Diabetic neuropathy Difficulty swallowing DVT (deep venous thrombosis) Essential hypertension Excessive bleeding Fall at home Former smoker Gastric reflux Gastroparesis Gastroparesis GERD (gastroesophageal reflux disease) High cholesterol History of cervical cancer History of CHF (congestive heart failure) History of diverticulitis History of DVT (deep vein thrombosis) History of edema History of heart attack History of Holter monitoring History of IBS History of renal disease History of stress test Hypothyroidism Injury of back Insulin dependent diabetes mellitus Lung nodule Migraine headache Mixed hyperlipidemia On home oxygen therapy PARESH (obstructive sleep apnea) Paroxysmal A-fib Paroxysmal atrial fibrillation Post-menopausal Presence of stent in coronary artery (~12/07/03) Pulmonary embolism Pulmonary embolism Pulmonary hypertension RLS (restless legs syndrome) Sleep apnea Thyroid disease Tinnitus Uses wheelchair Walker as ambulation aid Wears dentures Wears glasses Wears hearing aid Home Medications atorvastatin 40 mg tablet 40 mg PO QHS CHOLESTEROL LOWERING 02/03/18 [History Last Taken 06/03/23] levothyroxine 100 mcg tablet 100 mcg PO DAILY THYROID 02/03/18 [History Last Taken 06/03/23] ascorbic acid (vitamin C) 500 mg tablet 500 mg PO DAILY@1700 supplement 05/17/18[History Last Taken 06/03/23] potassium chloride 10 mEq tablet,extended release 10 meq PO DAILY supplement 06/08/19 [History Last Taken 06/03/23] allopurinol 100 mg tablet 100 mg PO DAILY gout 08/11/19 [History Last Taken 06/03/23] furosemide 20 mg tablet 20 mg PO BID FLUID 10/25/20 [History Last Taken 06/03/23] cholecalciferol (vitamin D3) 50 mcg (2,000 unit) capsule 2,000 unit PO DAILY SUPPLEMENT 12/13/20 [History Last Taken 06/02/23] buspirone 10 mg tablet 10 mg PO BID depression 06/12/22 [History Last Taken 06/03/23] duloxetine 60 mg capsule,delayed release 60 mg PO DAILY MENTAL HEALTH 06/12/22 [History Last Taken 06/03/23] fexofenadine 180 mg tablet 180 mg PO DAILY ALLERGIES 06/12/22 [History Last Taken 06/03/23] insulin glargine 100 unit/mL (3 mL) subcutaneous pen (Lantus Solostar U-100 Insulin) 60 unit subcut BID DM 06/12/22 [History Last Taken 06/03/23] insulin lispro 100 unit/mL subcutaneous pen 14 unit subcut BREAKFAST DIABETES 06/12/22 [History Last Taken 06/03/23] insulin lispro 100 unit/mL subcutaneous pen 14 unit subcut LUNCH DIABETES 06/12/22 [History Last Taken 06/02/23] insulin lispro 100 unit/mL subcutaneous pen 24 unit subcut DINNER DIABETES 06/12/22 [History Last Taken 06/02/23] sodium chloride 0.65 % nasal spray aerosol (Saline Mist) 2 spray intranasal TID PRN ALLERGIES 06/12/22 [History Last Taken 06/03/23] nitroglycerin 0.4 mg sublingual tablet 0.4 mg sublingual Q5-15M PRN chest pain #25 tabs 10/21/22 [Rx Last Taken 12/17/22] albuterol sulfate 90 mcg/actuation aerosol inhaler 2 puff inhalation PRN PRN COPD 12/12/22 [History Last Taken 12/17/22] amlodipine 5 mg tablet 5 mg PO DAILY BP 12/12/22 [History Last Taken 06/03/23] ferrous sulfate 325 mg (65 mg iron) tablet 325 mg PO DAILY SUPPLEMENT 12/12/22 [History Last Taken 06/03/23] alendronate 70 mg tablet 70 mg PO TU BONES 06/03/23 [History Last Taken 06/03/23] buspirone 10 mg tablet 15 mg PO QHS 06/03/23 [History Last Taken 06/02/23] nystatin 100,000 unit/gram topical powder ([facility]) 1 applic topical TID PRN SKIN06/03/23 [History Last Taken Unknown] triamcinolone acetonide 0.1 % topical cream 1 applic topical DAILY PRN SKIN 06/03/23 [History Last Taken 06/01/23] ranolazine 500 mg tablet,extended release,12 hr 500 mg PO BID #60 tabs 07/02/23 [Rx Last Taken Unknown] isosorbide mononitrate 120 mg tablet,extended release 24 hr 120 mg PO DAILY HEART #30 tabs 07/30/23 [Rx Last Taken Unknown] apixaban 5 mg tablet (Eliquis) 5 mg PO BID #60 tabs 08/12/23 [Rx Last Taken Unknown] clopidogrel 75 mg tablet 75 mg PO DAILY Pt told me today she ran out 4 days ago!#30 tabs 08/12/23 [Rx Last Taken Unknown] famotidine 20 mg tablet 20 mg PO DAILY #30 tabs 08/12/23 [Rx Last Taken Unknown] aspirin 81 mg tablet,delayed release 81 mg PO DAILY 08/13/23 [History Last Taken Unknown] cyclobenzaprine 10 mg tablet 10 mg PO BID 08/13/23 [History Last Taken Unknown] metoprolol tartrate 100 mg tablet 150 mg PO BID Heart Rate 08/13/23 [History Last Taken Unknown] oxycodone 5 mg tablet 5 mg PO Q8H 08/13/23 [History Last Taken Unknown] Allergy/AdvReac Type Severity Reaction Status Date / Time metoclopramide [From Reglan] Allergy Intermediate Itching Verified 08/13/23 14:50 ciprofloxacin [From Cipro] Allergy Hives Verified 08/13/23 14:50 latex Allergy stallworth me Verified 08/13/23 14:50 niacin Allergy Hives Verified 08/13/23 14:50 [From Niaspan Extended-Release] ranolazine [From Ranexa] Allergy Itching Verified 08/13/23 14:50 orphenadrine AdvReac Mild PT UNABLE Verified 08/13/23 15:19 TO RESPOND-NEEDS F/U adhesive tape AdvReac Other Verified 08/13/23 14:50 orphenadrine citrate AdvReac groggy Verified 08/13/23 14:50 [From Norgesic] Family History Mother CAD (coronary artery disease) Father CAD (coronary artery disease) Brother CAD (coronary artery disease) Asthma Sister Hypertension Sister Diabetes Sister Heart disease Surgical History History of cardiac catheterization History of cholecystectomy History of coronary artery stent placement (06/04/23) History of hernia repair History of knee surgery History of left heart catheterization (LHC) (~09/28/19) History of nasal surgery History of surgery on wrist History of total abdominal hysterectomy History of tubal ligation Hx of surgical procedure Presence of coronary angioplasty implant and graft (~12/07/03) Social History Smoking Status: Former smoker alcohol intake: never substance use type: does not use caffeine: Yes Type: coffee Number of servings: 1 ROS ROS ED Constitutional Constitutional ED: Reports fever(s) and other Details: Per daughter temperature at the physician's office was 100.8. Eyes Eyes: Denies blurry vision or change in vision ENT ENT ED: Denies ear pain or sore throat Cardiovascular Cardiovascular: Reports chest pain; Denies palpitations or racing heartbeat Respiratory/Chest Respiratory/Chest: Reports cough and dyspnea Gastrointestinal Gastrointestinal: Reports nausea; Denies abdominal pain, constipation, diarrhea or vomiting Genitourinary Genitourinary ED: Reports urinary frequency; Denies dysuria or hematuria Musculoskeletal Musculoskeletal: Reports back pain and myalgias; Denies arthralgias Integumentary Denies rash Neurologic Neurologic: Reports headache(s) and weakness; Denies paresthesias Endocrine Endocrinology: Reports cold intolerance and heat intolerance Hematologic/Lymphatic Hematologic/Lymphatic: Reports systems reviewed and no addt'l complaints, exceptas documented EXAM Physical Exam Const Vital Signs: 08/13/23 14:50 08/13/23 15:20 08/13/23 16:00 Temperature 96.2 F L 98.7 F Temperature Source Temporal Oral Pulse Rate 112 H Respiratory Rate 22 H Respiratory Effort Normal Blood Pressure 134/99 H Blood Pressure Mean 110 Pulse Ox 100 Oxygen Delivery Method Nasal Cannula Oxygen Flow Rate (L/min) 3 08/13/23 16:00 08/13/23 17:22 Temperature Temperature Source Pulse Rate 102 H 110 H Respiratory Rate 26 H 24 H Respiratory Effort Blood Pressure 129/85 H 111/73 Blood Pressure Mean 99 85 Pulse Ox 98 100 Oxygen Delivery Method Nasal Cannula Oxygen Flow Rate (L/min) 3 Positive well nourished, well developed and obese General Appearance ED: well developed, NAD and pallor Nutritional Appearance: obese HEENT Reports TM's clear and dry mucous membranes HEENT Narrative: Head is atraumatic and normocephalic. Tympanic Membrane ED: Yes TM's clear Mouth ED: Yes dry mucous membranes Mouth: dry mucous membranes Eyes PERRL and EOMs intact bilaterally General Eye ED: Negative for pale conjunctiva or scleral icterus Neck no lymphadenopathy, supple and no JVD Chest Wall inspection of chest normal and palpation of chest normal Resp normal respiratory effort and clear to auscultation bilaterally Cardio no murmurs Rhythm: abnormal rhythm irregularly irregular GI normal to inspection, nondistended, normoactive bowel sounds, non-tender, non-distended and no masses; Negative for hepatosplenomegaly Back/Spine no CVA tenderness Extremity General Extremety ED: Yes edema and tenderness General Extremity: edema Neuro No oriented x3 and CN's II-XII intact bilaterally Sensorium / Orientation: Negative for alert Psych Attitude: agitated Mood & Affect: depressed Skin no rashes or lesions noted, no wounds and No skin turgor normal General Skin Exam: pallor; Negative for jaundice MDM MDM MDM Narrative Medical decision making narrative: Of history of coronary disease with multiple risk factors for cardiac disease will obtain a troponin and EKG to rule out acute ischemic changes. Because of her respiratory symptoms will obtain chest x-ray and white count. Because of her urinary symptoms will have nurse perform a straight cath to obtain adequate urine specimen is there is no evidence of metabolic or infectious cause we will obtain a CAT scan of her head since she is disoriented and not at baseline per daughter. History & Record Review Discussion w/independent historian: Patient and Family Additional record(s) reviewed:: Prior ED visit and Prior labs Lab Data Attestation: I reviewed the patient's lab results. Lab results narrative: Count is normal with slight shift. Patient has mild anemia with normal indices. Competence of metabolic panel is marked for creatinine of 1.48 with an estimated GFR of 37. Glucose is 213 with a normal CO2 and anion gap. Total bili, AST and ALT are all elevated. Since initially she complained of pain in the right upper quadrant and there is no history of cholecystectomy will obtain ultrasound of the right upper quadrant to determine patient has cholecystitis. Urine reveals specific gravity 1.015, protein, occult blood and leukoesterase. Negative for nitrites. Microscopic reveals no red cells 5-10 WBCs with 3+ bacteria. This was a straight cath specimen. Culture was sent. Patient was treated with a gram of Rocephin. Labs: Laboratory Results - last 24 hr 08/13/23 08/13/23 15:30 16:20 WBC 9.2 RBC 3.70 L Hgb 11.3 L Hct 36.6 L MCV 98.9 MCH 30.5 MCHC 30.9 L RDW Std Deviation 54.4 H RDW Coeff of Aubrey 15.2 H Plt Count 206 MPV 10.8 Immature Gran % (Auto) 0.500 Neut % (Auto) 84.7 H Lymph % (Auto) 4.7 L [place] % (Auto) 8.5 Eos % (Auto) 1.3 Baso % (Auto) 0.3 Absolute Neuts (auto) 7.8 H Absolute Lymphs (auto) 0.43 L Nucleated RBC % 0 Differential Comment SCANNED Sodium 136 Potassium 3.5 Chloride 104 Carbon Dioxide 30.0 Anion Gap 2 L BUN 21 H Creatinine 1.48 H Estim Creat Clear Calc 27.45 Est GFR (MDRD) Af Amer 45 L Est GFR (MDRD) Non-Af 37 L BUN/Creatinine Ratio 14.2 Glucose 213 H Lactic Acid 1.5 Calcium 8.3 L Total Bilirubin 1.50 H AST 149 H ALT 164 H Alkaline Phosphatase 141 H Troponin I High Sens 13 Total Protein 7.7 Albumin 3.0 L Globulin 4.7 H Albumin/Globulin Ratio 0.6 L Urine Color Yellow Urine Clarity Sl. Cloudy Urine pH 5.0 Ur Specific [place] 1.015 Urine Protein 30 H Urine Glucose (UA) Normal Urine Ketones Negative Urine Occult Blood 25 H Urine Nitrite Negative Urine Bilirubin Negative Urine Urobilinogen 4 H Ur Leukocyte Esterase 100 H Urine RBC 0 SEEN Urine WBC 5-10 SEEN Ur Squamous Epith Cells 0-5 SEEN Urine Bacteria 3+ Urine Mucus 0 SEEN Radiography Diagnostic Testing: Clinical Impression(s) from Imaging Studies Chest X-Ray 08/13/23 16:04 IMPRESSION: ASHD. No acute cardiopulmonary pathology Electronically Signed: John Chavez MD at 16:24 EST , Gallbladder Ultrasound 08/13/23 16:34 IMPRESSION: Enlarged diffusely fatty infiltrated liver. Status post cholecystectomy. Marked dilatation of the distal common bile duct without definitive evidence for intraductal stone. There is limited visualization of the pancreas. CT or MRI/MRCP recommended for further evaluation of pancreas and etiology for ductal dilatation Electronically Signed: John Chavez MD at 17:53 EST , Management Discussion w/another healthcare provider: Hospitalist and Display Artist (Her friendon-call for GI was consulted in light of the ultrasound findings. Dr. Lewis recommended MRI/MRCP.) Treatment and Re-Evaluation :: Patient was treated with Rocephin for her UTI. Because she is encephalopathic patient was placed in 4-point restraints because she became belligerent and was not redirectable. Suspect this is due to her encephalopathy. Capacity form wasfilled out. Discharge Plan Dx/Rx/DC Orders Clinical Impression: Encephalopathy acute, Diabetes mellitus type 2 in obese, Complicated urinary tract infection, Elevated transaminase level, Common bile duct dilatation, Paroxysmal atrial fibrillation, History of hypertension, Presence of stent in coronary artery, Pulmonary hypertension, Anemia Disposition Disposition: Acute Care Hospital [facility] Capacity Capacity Assessment Tool Can the patient make a choice & communicate that choice?: No Can the patient understand benefits, risks and alternatives?: No Can the patient make a logical, rational choice?: No Is the choice the patient makes consistent w/ their values?: Unable to Determine Is there an impending, emergent risk to the patient?: Unable to Determine (Thereis a possibility) Does the patient have an Advance Directive?: Unable to Determine Is there a Surrogate Available?: Yes (Daughter left he did not want to take her mother home.) i.e. close relative (spouse, child, parent, sibling)?: Yes (Previously documented daughter left because mother stated she did not want to stay when shewas told she had to be admitted.) What to do if you have Problems For any increased pain, shortness of breath, bleeding, nausea or vomiting, chestpain, or any unexpected problems, contact your Primary Care Provider. Call [facility] ([phone]) or report to the closest Emergency Room. Call 911 if necessary. 08/13/231852 <Electronically signed by Eleazar Brooks MD> Cosigner Signature (if applicable): CC: Dr. Bhupendra Oliveira MD ~ Signed [facility] Work Phone: 1(710) 726-109211-22-2023 Nurse Note* Mckenna Huber MA - 08/13/2023 2:35 PM EST Nitro given per provider VO at 1421 d/t chest pain. [facility]ckenna Huber [facility] History of Present illness Narrative* Nanda Oliveira MD - 08/13/2023 2:05 PM EST Chief Complaint Patient presents with: Follow Up: Cough, runny nose, congestion HPI Tamia Panda is a 68 year old female who presents here today for Evaluation of URI/COVID symptoms. Accompanied by her step daughter Mae. Patient states that she has been sick for over a week now, but her daughter states that she soundedOK on the phone last night. Complaining of productive cough, fever/chills, SOB, chest pain, palpitations, wheezing, abdominal pain. Has taken mucinex OTC and tylenol for symptoms, but nothing today. Has not taken nitro for her chest pain today. Unsure if she has taken her ASA and plavix. Has been compliant with her oxygen which has helped with SOB. Symptoms worsening instead of improving. Step daughter notes she seems confused today. Forgot she even had an appointment and then got here more than 1 hour early. Past medical history, appointments, medications, allergies reviewed. Previous Medical History PAST MEDICAL HISTORY Diagnosis Date Acute chronic obstructive pulmonary disease with respiratory failure AF (paroxysmal atrial fibrillation) ([facility]) Anxiety Arthritis Seeing Dr Elliott Cervical cancer ([facility]) hysterectomy CHF (congestive heart failure) ([facility]) Dr. Ramsey Chronic back pain Seeing Dr. Wallace Chronic respiratory failure with hypercapnia [facility] [facility]) 10/06/2018 [facility], 09/09/2018: 7.38/54.7/77/32.6 on 30% O2. CKD (chronic kidney disease), stage III ([facility]) Constipation Coronary atherosclerosis of [place] coronary artery Cyst of left kidney repeat US 10/2020 DDD (degenerative disc disease), lumbar DM type 2 (diabetes mellitus, type 2) ([facility]) Dr. Lopez for podiatry DVT (deep venous thrombosis) ([facility]) Post op INA, BSO. Dysphagia Seeing Dr. Beaulieu Emphysema lung ([facility]) Essential hypertension Femur fracture, left ([facility]) 07/2022 s/p nail Functional dyspepsia Gastroparesis 2016 mild GERD without esophagitis Gout Headache History of colon polyps 11/28/2016 Hyperlipidemia Hyperuricemia Hypothyroidism Incontinence Seeing Dr. Chapman Lung nodule 02/[address] in 3 months Morbid obesity ([facility]) Muscle weakness Nausea Obesity hypoventilation syndrome ([facility]) on 2-3 L oxygen continuously [place] on CPAP [facility] for BiPAP and [facility] for O2. PE (pulmonary thromboembolism) ([facility]) Post op INA/BSO. Pneumonia Pulmonary HTN ([facility]) Renal cyst repeat US 10/2020 RLS (restless legs syndrome) Shortness of breath Sleep apnea using oxygen currently, not on CPAP Unsteadiness on feet Vitamin D deficiency Wheezing Previous Surgical History PAST SURGICAL HISTORY Procedure Laterality Date CC PCI CORONARY INTERVENT 2004 CHOLECYSTECTOMY COLONOSCOPY Has had multiple in the past with polyps, cannot remember dates COLSC FLX W/RMVL OF TUMOR POLYP LESION SNARE TQ 11/28/2016 Repeat 2019 EGD TRANSORAL BIOPSY SINGLE/MULTIPLE 11/28/2016 HERNIA REPAIR HX multiple KNEE SURGERY HX Left x3 for torn cartilage NASAL SURGERY PROCEDURE sinus PAST SURGICAL HISTORY OF 01/30/2018 endoscopic per-oral pyloromyotomy PAST SURGICAL HISTORY OF Left 07/2022 cephalomedullary nail femur after fall with fracture TOTAL ABDOM HYSTERECTOMY 1987 Cervical cancer TUBAL LIGATION HX WRIST SURGERY HX Right ganglion cyst removal x2 Family History FAMILY HISTORY Problem Relation Age of Onset Coronary Artery Disease Mother Coronary Artery Disease Father Asthma Brother Coronary Artery Disease Brother Diabetes Sister Hypertension Sister Diabetes Sister Heart Sister Allergies Sister Asthma Sister Allergies Sister Emphysema Sister Early stages COPD Paternal Uncle Patient Allergies ALLERGIES Allergen Reactions Adhesive Tape (Adrienne* Intolerance Surgical tape leaves rash Irritates skin badly and blisters along with medical tape Cats Other: See Comments Congested and itchy, difficulty breathing Dogs Other: See Comments Congestion, sneezing, and difficulty breathing Orphenadrine Unknown Capsaicin Itching Ciprofloxacin Other: See Comments Red, hot, itchy rash Keflex [Cephalexin] Hives Negative skin testing and [...] after 30 minutes, proceed with regular dosing. Niacin Unknown Pt states its niacin its niaspan Reglan [Metoclopram* Other: See Comments Unable to sleep Xanthines Unknown Zofran [Ondansetron* Itching Current Medications Current Outpatient Medications on File Prior to Visit Medication Sig ranolazine ER (RANEXA) 500 mg 12 hr tablet famotidine (PEPCID) 20 mg tablet amLODIPine (NORVASC) 5 mg tablet busPIRone (BUSPAR) 10 mg tablet Take one tablet in the AM, one tablet in the afternoon and 1.5 tablets in the evening levothyroxine (SYNTHROID) 100 mcg tablet Take 1 tablet by mouth every morning. atorvastatin (LIPITOR) 40 mg tablet Take 1 tablet by mouth once daily. DULoxetine (CYMBALTA) 60 mg capsule Take 1 capsule by mouth once daily. furosemide (LASIX) 20 mg tablet Take 1 tablet by mouth two times a day. fexofenadine (ALLEN ALLERGY) 180 mg tablet Take 1 tablet by mouth once daily. ascorbic acid, vitamin C, (VITAMIN C) 500 mg tablet Take 1 tablet by mouth once daily. Lancets lancets Test blood sugar(s) 4 times daily. Dx: Type 2 DM - Uncontrolled E11.65 Insulin: Yes allopurinol (ZYLOPRIM) 100 mg tablet Take 1 tablet by mouth once daily. For gout. aspirin, enteric coated (ASPIRIN, ENTERIC COATED) 81 mg EC tablet Take 1 tablet by mouth every morning. ferrous sulfate 325 mg (65 mg iron) tablet Take 1 tablet by mouth daily with breakfast. omeprazole (PRILOSEC) 40 mg capsule Take 1 capsule by mouth once daily. albuterol HFA (PROAIR HFA) 90 mcg/actuation inhaler Inhale 2 Puffs as instructed every 4 hours as needed for wheezing/shortness of breath. nystatin (MYCOSTATIN) powder Apply 1 application to affected area three times a day. apixaban (ELIQUIS) 5 mg tab(s) Take 1 tablet by mouth twice daily. insulin glargine (LANTUS SOLOSTAR U-100 INSULIN) 100 unit/mL (3 mL) Inject 60 units subcutaneously twice daily clopidogrel (PLAVIX) 75 mg tablet Take 75 mg by mouth once daily. insulin lispro (HUMALOG KWIKPEN INSULIN) 200 unit/mL (3 mL) injection Inject 14units with breakfast, 14 units with lunch, and 24 units with dinner alendronate (FOSAMAX) 70 mg tablet Take 1 tablet by mouth one time a week. Take with a full glass of water, on an empty stomach; do NOT lie down for 30minutes. alcohol swabs Use up to 9 times per day to clean skin before testing blood sugar and injecting insulins (100 per box) Cholecalciferol, Vitamin D3, (VITAMIN D-3) 50 mcg (2,000 unit) cap Take 1 capsule by mouth once daily. blood sugar diagnostic (BLOOD GLUCOSE TEST) test strip Test blood sugar(s) 4 times daily. Dx: Type 2 DM - Uncontrolled E11.65 Insulin: Yes cycloSPORINE (CEQUA) 0.09 % dropperette Use 1 Drop in both eyes every 12 hours. Incontinence Pad, Liner, Disp (BLADDER CONTROL PADS EX ABSORB) pads 1 Device as needed. potassium chloride (K-TAB) 10 mEq tablet Take 1 tablet by mouth daily with breakfast. oxyCODONE IR (ROXICODONE) 5 mg immediate release tablet Take by mouth every 8 hours as needed for pain. blood sugar diagnostic (BLOOD GLUCOSE TEST) test strip Test blood sugar(s) up to 4 times daily. Dx:Type 2 DM - Uncontrolled E11.65 Insulin: Yes Freestyle Kira compatible test strips insulin needles, DISPOSABLE, (ULTICARE PEN NEEDLE) 31 gauge x 5/16 USE DIRECTED. TO INJECT INSULINS cyclobenzaprine (FLEXERIL) 10 mg tablet Take 1 tablet by mouth twice daily as needed for muscle spasm. BIPAP Bilevel PAP 16/12 cmH2O with 2 LPM oxygen bleed in, mask, tubing, filters, heated humidity, lifetime supplies. Dx: G47.33, G47.39. metoprolol tartrate, short acting, (LOPRESSOR) 50 mg tablet Take 1.5 tablets by mouth twice daily. lidocaine (XYLOCAINE) 5 % ointment Apply to affected area as needed. use a small amount to affectedarea qid prn pain Facial Mask mis 1 Device once daily. Oxygen mask to be worn daily for history of hypoxia. nitroglycerin sublingual (NITROQUICK) 0.4 mg SL tablet DISSOLVE 1 TAB UNDER THE TONGUE NEEDED FOR CHEST PAIN EVERY 5 MINUTES UP TO 3 TIMES. IF NO RELIEF CALL 911. isosorbide mononitrate ER (IMDUR) 120 mg 24 hr tablet TAKE 1 TABLETS BY MOUTH EVERY MORNING - (120mg daily) COMPOUNDED PRESCRIPTION Pulse oximetry to be used PRN for SOB for COPD DX:J96.12 fluorometholone (FML LIQUID FILM) 0.1 % ophthalmic suspension 1 Drop every 4 hours. flash glucose scanning reader (ElixrSTYLE KIRA 14 DAY READER) misc Use to check blood sugars 4-5 times per day Dx: Type 2 diabetes mellitus treated with insulin E11.9 flash glucose sensor (FREESTYLE KIRA 14 DAY SENSOR) kit Use to check blood sugars 4-5 times per day. Dx: Type 2 diabetes mellitus treated with insulin E11.9 glucose 4 gram chewable tablet TAKE 4 TABLETS BY MOUTH NEEDED FOR LOW BLOOD SUGAR. COMPOUNDED PRESCRIPTION Please fit for BiPAP mask. COMPOUNDED PRESCRIPTION OCD Titration for portable oxygen concentrator Oxygen Flow Rate between 2-6liters. To keep oxygen saturation at or above 92%. OXYGEN, HOME THERAPY, Inhale 3 L/min as instructed as directed. COMPOUNDED PRESCRIPTION Evaluation for diabetic shoes and inserts Dx: E11.65, Z79.4 Incontinence Pad, Liner, Disp pads 1 Device as needed (urinary incontinence). Prevail incontinence pads. Dx: urinary incontinence. Size: small Blood-Glucose Meter (Yaolan.[email or web address] ULTRA2) monitoring kit UAD to test blood sugar No current facility-administered medications on file prior to visit. Social History Social History Tobacco Use Smoking status: Former Packs/day: 1.00 Years: 28.00 Additional pack years: 0.00 Total pack years: 28.00 Types: Cigarettes Start date: 1978 Quit date: 09/22/2005 Years since quittin.9 Smokeless tobacco: Never Tobacco comments: Father smoked in childhood. 2nd spouse smoked in home. Vaping Use Vaping Use: Never used Substance Use Topics Alcohol use: No Drug use: No Review of Symptoms REVIEW OF SYSTEMS See HPI EXAM: BP 124/80 Pulse 110 Temp (!) 38.2 C (100.8 F) Resp 16 SpO2 99% General Appearance: Ill appearing. Seated in wheelchair with coat on and is shaking with chills. Confused. AOx2 (person, place). Skin: Skin color, texture, turgor normal, no suspicious rashes or lesions. Lungs: decreased lung sounds in bases bilaterally. . Heart: Positive findings: tachycardia, irregular rhythm. Abdomen: Abdomen soft. Bowel sounds normal. No masses, organomegaly, Positive findings: tenderness moderate generalized without guarding or rebound. Extremities: Edema: 1+ edema to mid stern bilaterally. Health Maintenance List Hepatitis B Vaccine(1 of 3 - Risk 3-dose series) Never done RSV Vaccine(1 - 1-dose 60+ series) Never done Colorectal Cancer Screening due on 11/29/2021 Mammogram Screening due on 12/28/2021 BP Controlled (<130/80) due on 05/25/2022 Advance Directive Discussion Never done Shingrix Vaccine(2 of 3) due on 02/07/2024 Covid-19 Vaccine( season) due on 06/13/2024 LDL Cholesterol due on 09/27/2023 HbA1C due on 11/13/2023 Serum Creatinine due on 02/07/2024 Urine Albumin:Creatinine Ratio due on 03/17/2024 Hemoglobin/Hematocrit due on 03/17/2024 Diabetic Foot Exam due on 05/13/2024 Dilated Retinal Exam due on 06/23/2024 Annual PCP Team Chronic Disease Visit due on 08/13/2024 DTaP,Tdap,Td Vaccine(2 - Td or Tdap) due on 10/02/2026 Bone Density Screening Completed Influenza Vaccine Completed Hepatitis C Screening Completed Pneumococcal Vaccine: 65+ Completed Data reviewed EKG: a fib with RVR @ 113 bpm, ST &T wave abnormality, consider lateral ischemia. Abnormal EKG ASSESSMENT/PLAN: 1. Other chest pain - ICD9: 786.59, ICD10: R07.89 (primary diagnosis) EKG positive for a fib with RVR. With shaking there was significant artifact, but did not identify STEMI. Gave nitro x 2 here while awaiting EMS for transfer to [facility] for stat work up of possible COVIDvs pneumonia, r/o RI or PE. Report given to EMS upon their arrival and will follow up with her on discharge. - ECG COMPLETE - NITROGLYCERIN 0.4 MG SUBLINGUAL TABLET - NITROGLYCERIN 0.4 MG SUBLINGUAL TABLET 2. Atrial fibrillation with RVR (HCC) - ICD9: 427.31, ICD10: I48.91 See above. 3. FUO (fever of unknown origin) - ICD9: 780.60, ICD10: R50.9 See above. 4. Shaking chills - ICD9: 780.64, ICD10: R68.83 See above. 5. Productive cough - ICD9: 786.2, ICD10: R05.8 See above. 6. Decreased breath sounds of both lungs - ICD9: 786.9, ICD10: R09.89 See above. I spent a total of 40 minutes on the date of the service which included preparing to see the patient, [id number] patient care, completing clinical documentation, obtaining and/or reviewing separately obtained history, performing a medically appropriate examination, counseling and educating the pat ient/family/caregiver, ordering medications, tests, or procedures, communicating with other HCPs (not separately reported), independently interpreting results (not separately reported), and communicating results to the patient/family/caregiver. Nanda Oliveira MD [facility] Miscellaneous Notes* Telephone Encounter - Wesley Deng - 07/25/2023 3:40 PM EDT [place] 06/13/23 NOV 08/13/23 * Telephone Encounter - Ivy Cruz - 07/25/2023 10:24 AM EDT Patient has been identified by name and date of : Yes Requested Prescriptions Pending Prescriptions Disp Refills Lancets lancets 200 Each 1 Sig: Test blood sugar(s) 4 times daily. Dx: Type 2 DM - Uncontrolled E11.65 Insulin: Yes RX INSTRUCTIONS: Pharmacy initiated this request. No need to notify patient. Ivy De La Cruz documented in this [facility]10-13-2023 Miscellaneous Notes* Telephone Encounter - Maureen Tripp RN - 07/04/2023 2:46 PM EDT Patient has been identified by name and date of : Yes, Provider Dr Oliveira Date 07/04/23 Time 1447. Pharmacy phones for refill(s): Requested Prescriptions Pending Prescriptions Disp Refills allopurinol (ZYLOPRIM) 100 mg tablet 90 tablet 1 Sig: Take 1 tablet by mouth once daily. For gout. aspirin, enteric coated (ASPIRIN, ENTERIC COATED) 81 mg EC tablet 90 tablet 1 Sig: Take 1 tablet by mouth every morning. ferrous sulfate 325 mg (65 mg iron) tablet 30 tablet 2 Sig: Take 1 tablet by mouth daily with breakfast. omeprazole (PRILOSEC) 40 mg capsule 90 capsule 1 Sig: Take 1 capsule by mouth once daily. Date of last office visit in primary care: 06/13/2023 Date of next office visit in primary care: 08/13/2023 Last 2 Encounter Wt Readings: Date: Wt: 05/13/2023 89.9 kg (198 lb 3.2 oz) 04/03/2023 89.8 kg (198 lb) Previous labs/tests for medication: Blood Pressure: BUN (mg/dL) Date Value 02/06/2023 20 11/13/2021 18 Sodium (mmol/L) Date Value 02/06/2023 144 11/13/2021 143 Last 1 Encounter BP Readings: Date: BP: 06/13/2023 104/66 Liver Function: ALT (U/L) Date Value 02/06/2023 7 11/13/2021 7 AST (U/L) Date Value 02/06/2023 16 11/13/2021 17 Please advise. Thank you. Maureen Tripp RN. documented in this encounter[facility] Instructions* Patient Instructions* Demetria Cifuentes - 06/12/2023 11:57 AM EDT Diabetes Foot Care Instructions When you have diabetes, proper foot care is very important. Poor foot care may lead to amputation of a foot or leg. As a person with diabetes, you are more vulnerable to foot problems, because diabetes can damage your nerves and reduce blood flow to your feet. Here are some diabetes foot care tips to follow: Wash and Dry Your Feet Daily Use mild soaps Use warm water Pat your skin dry; do not rub. Thoroughly dry your feet. After washing, use lotion on your feet to prevent cracking. Do not put lotion between your toes. Examine Your Feet Each Day Check the tops and bottoms of your feet. Have someone else look at your feet if you cannot see them. Check for dry, cracked skin. Look for blisters, cuts, scratches, or other sores. Check for redness, increased warmth, or tenderness when touching any area of your feet. Check for ingrown toenails, corns, and calluses. If you get a blister or sore from your shoes, do not pop it. Apply a bandage and wear a differentpair of shoes. Take Care of Your Toenails Cut toenails after bathing, when they are soft. Cut toenails straight across and smooth with a nail file. Avoid cutting into the corners of toes. Do not cut cuticles. If you have neuropathy (or decreased sensation in your feet) a grinder carbon plant should always cut your toenails. Be Careful When Exercising Walk and exercise in comfortable shoes. Do not exercise when you have open sores on your feet. Protect Your Feet With Shoes and Socks Never go barefoot. Always protect your feet by wearing shoes or hard-soled slippers or footwear. Avoid shoes with high heels and pointed toes. Avoid shoes that expose your toes or heels (such as open-toed shoes or sandals). These types of shoes increase your risk for injury and potential infections. Try on new footwear with the type of socks you usually wear. Do not wear new shoes for more than an hour at a time. Change your socks daily. Look and feel inside your shoes before putting them on to make sure there are no foreign objects orrough areas. Avoid tight socks. Wear natural-fiber socks (cotton, wool, or a cotton-wool blend). Wear special shoes if your health care provider recommends them. Wear shoes/boots that will protect your feet from various weather conditions (cold, moisture, etc.). Make sure your shoes fit properly. If you have neuropathy (nerve damage), you may not notice that your shoes are too tight. Perform the footwear test described below. Footwear Test Use this simple test to see if your shoes fit correctly: Stand on a piece of paper. (Make sure you are standing and not sitting, because your foot changes shape when you stand.) Trace the outline of your foot. Trace the outline of your shoe. Compare the tracings: Is the shoe too narrow? Is your foot crammed into the shoe? The shoe should be at least 1/2 inch longer than your longest toe and as wide as your foot. Proper Shoe Choices The following types of shoes are best for people with diabetes Closed toes and heels Leather uppers without a seam inside At least 1/2 inch extra space at the end of your longest toe Inside of shoe should be soft with no rough areas Outer sole should be made of stiff material Shoes should be at least as wide as your feet Tips for Foot Care in Diabetes Don't wait to treat a minor foot problem if you have diabetes. Follow your health care provider's guidelines and first aid guidelines. Report foot injuries and infections to your health care provider immediately. Check water temperature with your elbow, not your foot. Do not use a heating pad on your feet. Do not cross your legs. Do not self-treat your corns, calluses, or other foot problems. Go to your health care provider or grinder [employer] to treat these conditions. documented in this encounterB[facility] History of Present illness Narrative* Demetria Cifuentes - 06/12/2023 11:49 AM EDT Images from the original note were not included. Last saw pcp: 02/28/23 Subjective: This 68 year old female presents to clinic for diabetic foot check. Patient has the following complaints: pain in toes. Patient admits to being diabetic for many years now . Patient +B/T/N in feet at this time. Patient -pain in legs when walking. No other pedal complaints at this time. No change in medications or medical history since last visit. PAIN EVALUATION 06/12/2023 1143 Pain Level: 8 Pain Location: Other: See Comment bilateral feet Description: Dull Duration Units: Years Frequency: Continuous Intervention/Comfort measure: Reposition;Relaxation;Medication Hemoglobin A1C (%) Date Value 02/06/2023 8.0 09/27/2022 6.5 07/04/2022 7.4 03/01/2022 8.0 11/13/2021 6.1 12/07/2020 6.3 05/01/2020 6.5 04/21/2020 6.5 06/07/2019 6.5 Hemoglobin A1C (POCT) (%) Date Value 05/13/2023 7.9 05/25/2021 6.0 PCP: Nanda Oliveira MD PAST MEDICAL HISTORY Diagnosis Date Acute chronic obstructive pulmonary disease with respiratory failure AF (paroxysmal atrial fibrillation) (HCC) Anxiety Arthritis Seeing Dr Knapic Cervical cancer (HCC) hysterectomy CHF (congestive heart failure) ([facility]) Dr. Ramsey Chronic back pain Seeing Dr. Wallace Chronic respiratory failure with hypercapnia ([facility]) 10/06/2018 [facility], 09/09/2018: 7.38/54.7/77/32.6 on 30% O2. CKD (chronic kidney disease), stage III ([facility]) Constipation Coronary atherosclerosis of [place] coronary artery Cyst of left kidney repeat US 10/2020 DDD (degenerative disc disease), lumbar DM type 2 (diabetes mellitus, type 2) ([facility]) Dr. Lopez for podiatry DVT (deep venous thrombosis) ([facility]) Post op INA, BSO. Dysphagia Seeing Dr. Beaulieu Emphysema lung ([facility]) Essential hypertension Femur fracture, left ([facility]) 07/2022 s/p nail Functional dyspepsia Gastroparesis 2016 mild GERD without esophagitis Gout Headache History of colon polyps 11/28/2016 Hyperlipidemia Hyperuricemia Hypothyroidism Incontinence Seeing Dr. Chapman Lung nodule 02/[address] in 3 months Morbid obesity ([facility]) Muscle weakness Nausea Obesity hypoventilation syndrome ([facility]) on 2-3 L oxygen continuously PARESH on CPAP [facility] for BiPAP and [facility] for O2. PE (pulmonary thromboembolism) ([facility]) Post op INA/BSO. Pneumonia Pulmonary HTN ([facility]) Renal cyst repeat US 10/2020 RLS (restless legs syndrome) Shortness of breath Sleep apnea using oxygen currently, not on CPAP Unsteadiness on feet Vitamin D deficiency Wheezing Current Outpatient Medications Medication Sig clopidogrel (PLAVIX) 75 mg tablet Take 75 mg by mouth once daily. insulin glargine (LANTUS SOLOSTAR U-100 INSULIN) 100 unit/mL (3 mL) Inject 56 units subcutaneously twice daily insulin lispro (HUMALOG KWIKPEN INSULIN) 200 unit/mL (3 mL) injection Inject 14units with breakfast, 14 units with lunch, and 24 units with dinner ferrous sulfate 325 mg (65 mg iron) tablet Take 1 tablet by mouth daily with breakfast. alendronate (FOSAMAX) 70 mg tablet Take 1 tablet by mouth one time a week. Take with a full glass of water, on an empty stomach; do NOT lie down for 30minutes. busPIRone (BUSPAR) 10 mg tablet Take one tablet in the AM, one tablet in the afternoon and 1.5 tablets in the evening alcohol swabs Use up to 9 times per day to clean skin before testing blood sugar and injecting insulins (100 per box) Cholecalciferol, Vitamin D3, (VITAMIN D-3) 50 mcg (2,000 unit) cap Take 1 capsule by mouth once daily. apixaban (ELIQUIS) 2.5 mg tab(s) Take 1 tablet by mouth twice daily. (Patient taking differently: Take 5 mg by mouth twice daily.) nystatin (MYCOSTATIN) powder Apply 1 application to affected area three times daily. albuterol HFA (PROAIR HFA) 90 mcg/actuation inhaler Inhale 2 Puffs as instructed every 4 hours as needed for wheezing/shortness of breath. blood sugar diagnostic (BLOOD GLUCOSE TEST) test strip Test blood sugar(s) 4 times daily. Dx: Type 2 DM - Uncontrolled E11.65 Insulin: Yes Lancets lancets Test blood sugar(s) 4 times daily. Dx: Type 2 DM - Uncontrolled E11.65 Insulin: Yes cycloSPORINE (CEQUA) 0.09 % dropperette Use 1 Drop in both eyes every 12 hours. atorvastatin (LIPITOR) 40 mg tablet Take 1 tablet by mouth once daily. DULoxetine (CYMBALTA) 60 mg capsule Take 1 capsule by mouth once daily. levothyroxine (SYNTHROID) 100 mcg tablet Take 1 tablet by mouth every morning. furosemide (LASIX) 20 mg tablet Take 1 tablet by mouth twice daily. fexofenadine (ALLEN ALLERGY) 180 mg tablet Take 1 tablet by mouth once daily. ascorbic acid, vitamin C, (VITAMIN C) 500 mg tablet Take 1 tablet by mouth once daily. Incontinence Pad, Liner, Disp (BLADDER CONTROL PADS EX ABSORB) pads 1 Device as needed. aspirin, enteric coated (ASPIRIN, ENTERIC COATED) 81 mg EC tablet Take 1 tablet by mouth every morning. omeprazole (PRILOSEC) 40 mg capsule Take 1 capsule by mouth once daily. allopurinol (ZYLOPRIM) 100 mg tablet Take 1 tablet by mouth once daily. For gout. potassium chloride (K-TAB) 10 mEq tablet Take 1 tablet by mouth daily with breakfast. oxyCODONE IR (ROXICODONE) 5 mg immediate release tablet Take by mouth every 8 hours as needed for pain. blood sugar diagnostic (BLOOD GLUCOSE TEST) test strip Test blood sugar(s) up to 4 times daily. Dx:Type 2 DM - Uncontrolled E11.65 Insulin: Yes Freestyle Kira compatible test strips insulin needles, DISPOSABLE, (ULTICARE PEN NEEDLE) 31 gauge x 5/16 USE DIRECTED. TO INJECT INSULINS cyclobenzaprine (FLEXERIL) 10 mg tablet Take 1 tablet by mouth twice daily as needed for muscle spasm. BIPAP Bilevel PAP 16/12 cmH2O with 2 LPM oxygen bleed in, mask, tubing, filters, heated humidity, lifetime supplies. Dx: G47.33, G47.39. metoprolol tartrate, short acting, (LOPRESSOR) 50 mg tablet Take 1.5 tablets by mouth twice daily. lidocaine (XYLOCAINE) 5 % ointment Apply to affected area as needed. use a small amount to affectedarea qid prn pain Facial Mask misc 1 Device once daily. Oxygen mask to be worn daily for history of hypoxia. nitroglycerin sublingual (NITROQUICK) 0.4 mg SL tablet DISSOLVE 1 TAB UNDER THE TONGUE NEEDED FOR CHEST PAIN EVERY 5 MINUTES UP TO 3 TIMES. IF NO RELIEF CALL 911. isosorbide mononitrate ER (IMDUR) 120 mg 24 hr tablet TAKE 1 TABLETS BY MOUTH EVERY MORNING - (120mg daily) COMPOUNDED PRESCRIPTION Pulse oximetry to be used PRN for SOB for COPD DX:J96.12 fluorometholone (FML LIQUID FILM) 0.1 % ophthalmic suspension 1 Drop every 4 hours. flash glucose scanning reader (FREESTYLE KIRA 14 DAY READER) misc Use to check blood sugars 4-5 times per day Dx: Type 2 diabetes mellitus treated with insulin E11.9 flash glucose sensor (FREESTYLE KIRA 14 DAY SENSOR) kit Use to check blood sugars 4-5 times per day. Dx: Type 2 diabetes mellitus treated with insulin E11.9 glucose 4 gram chewable tablet TAKE 4 TABLETS BY MOUTH NEEDED FOR LOW BLOOD SUGAR. COMPOUNDED PRESCRIPTION Please fit for BiPAP mask. COMPOUNDED PRESCRIPTION OCD Titration for portable oxygen concentrator Oxygen Flow Rate between 2-6liters. To keep oxygen saturation at or above 92%. OXYGEN, HOME THERAPY, Inhale 3 L/min as instructed as directed. COMPOUNDED PRESCRIPTION Evaluation for diabetic shoes and inserts Dx: E11.65, Z79.4 Incontinence Pad, Liner, Disp pads 1 Device as needed (urinary incontinence). Prevail incontinence pads. Dx: urinary incontinence. Size: small Blood-Glucose Meter (ONETOUCH ULTRA2) monitoring kit UAD to test blood sugar No current facility-administered medications for this visit. ALLERGIES Allergen Reactions Adhesive Tape (Adrienne* Intolerance Surgical tape leaves rash Irritates skin badly and blisters along with medical tape Cats Other: See Comments Congested and itchy, difficulty breathing Dogs Other: See Comments Congestion, sneezing, and difficulty breathing Orphenadrine Unknown Capsaicin Itching Ciprofloxacin Other: See Comments Red, hot, itchy rash Keflex [Cephalexin] Hives Negative skin testing and [...] after 30 minutes, proceed with regular dosing. Niacin Unknown Pt states its niacin its niaspan Reglan [Metoclopram* Other: See Comments Unable to sleep Xanthines Unknown Zofran [Ondansetron* Itching PAST SURGICAL HISTORY Procedure Laterality Date CC PCI CORONARY INTERVENT 2004 CHOLECYSTECTOMY COLONOSCOPY Has had multiple in the past with polyps, cannot remember dates COLSC FLX W/RMVL OF TUMOR POLYP LESION SNARE TQ 11/28/2016 Repeat 2019 EGD TRANSORAL BIOPSY SINGLE/MULTIPLE 11/28/2016 HERNIA REPAIR HX multiple KNEE SURGERY HX Left x3 for torn cartilage NASAL SURGERY PROCEDURE sinus PAST SURGICAL HISTORY OF 01/30/2018 endoscopic per-oral pyloromyotomy PAST SURGICAL HISTORY OF Left 07/2022 cephalomedullary nail femur after fall with fracture TOTAL ABDOM HYSTERECTOMY 1988 Cervical cancer TUBAL LIGATION HX WRIST SURGERY HX Right ganglion cyst removal x2 FAMILY HISTORY Problem Relation Age of Onset Coronary Artery Disease Mother Coronary Artery Disease Father Asthma Brother Coronary Artery Disease Brother Diabetes Sister Hypertension Sister Diabetes Sister Heart Sister Allergies Sister Asthma Sister Allergies Sister Emphysema Sister Early stages COPD Paternal Uncle Social History Tobacco Use Smoking status: Former Packs/day: 1.00 Years: 28.00 Additional pack years: 0.00 Total pack years: 28.00 Types: Cigarettes Start date: 1978 Quit date: 09/22/2005 Years since quittin.7 Smokeless tobacco: Never Tobacco comments: Father smoked in childhood. 2nd spouse smoked in home. Vaping Use Vaping Use: Never used Substance Use Topics Alcohol use: No Drug use: No REVIEW OF SYSTEMS GENERAL: Negative for Malaise, significant weight loss, fever RESPIRATORY: Negative for cough, wheezing and shortness of breath CARDIOVASCULAR: Negative for chest pain, leg swelling and palpitations GI: Negative for abdominal discomfort, blood in stools or black stools and change in bowel habits : Negative for dysuria, frequency and incontinence MUSCULOSKELETAL: Negative for joint pain or swelling, back pain, and muscle pain. SKIN: Negative for lesions, rash, and itching. HEMATOLOGY/LYMPHOLOGY Negative for prolonged bleeding, bruising easily, and swollen nodes. ENDOCRINE: Negative for cold or heat intolerance, polyuria, polydipsia and goiter. NEURO: negative The remainder of the review of systems is noncontributory. Objective: Patient presents to clinic ambulating in [facility] Constitutional: Pt is a well developed 68 year old female who is alert, oriented, cooperative and in no apparent distress. Eyes: Following during examination. No redness or drainage. Respiratory: RR normal and nonlabored. Even breathing. No evidence of distress. Psychology: Patient is engaged during conversation. Normal affect and mood. Does not appear depressed or anxious. Vasc: DP and PT pulses are nonpalpable bilateral. CFT is less than 5 seconds bilateral. Skin temperature is warm to cool proximal to distal bilateral. There is mild edema or varicosities noted. Hair growth absent. Neuro: Protective sensation is decreased to the foot and toes when tested with the 5.07 SWM bilateral. Vibratory sensation is decreased at the hallux bilateral. + Significant neurological defecits. Derm: Inspection and palpation performed. Nails 2-5 b/l are painful, discolored- yellow, thick, crumbly, dystrophic and with subungal debris. Skin is thin, pallor, dry. Hyperkeratosis noted to not present. NO ulcerations, scars, verruca or other lesions noted. Ortho: Ankle joint DF is full with the knee extended and full with knee flexed. No pain or crepitusnoted. STJ, MTJ ROM are full and free of pain or crepitus. Muscle strength is 5/5 for dorsiflexors,plantarflexors, inverters, everters. Digital deformities include none. Assessment: (B35.1) Onychomycosis (primary encounter diagnosis) (M79.674) Pain in toe of right foot (M79.675) Pain in toe of left foot (I73.9) Peripheral arterial disease (HCC) (E11.49) Other diabetic neurological complication associated with type 2 diabetes mellitus (HCC) Plan: 1. Patient was seen and evaluated. 2. Patient was instructed on the continued importance of diabetic foot care along with proper diet and keeping their blood sugar under control to prevent complications. Instructions given both oral and written. 3. Patient toenails 2-5 b/l debrided in length and thickness. Q8 modifier 4. Continue with lotion to feet 5. Recommend she wear her diabetic shoes 6. F/u in 3 months Demetria Cifuentes DPM * Daniella Cunningham LPN - 06/12/2023 11:41 AM EDT AMB ROOMING INTAKE FLOWSHEET DATA Pain Pain Level: 8 Pain Location: Other: See Comment (bilateral feet) Description: Dull Duration Units: Years Frequency: Continuous Intervention/Comfort measure: Reposition, Relaxation, Medication Patient presents with: Left Foot - Established Patient, Follow Up, Numbness Right Foot - Established Patient, Follow Up, Pain, Numbness Daniella Cunningham LPN [facility] Discharge summary Author Jim Huddleston [facility] June 10, 2023 6:26pm Note Date/Time June 10, 2023 2:30pm [facility] Medical Records Department [address] [place] [address] Emergency Department Summary 06/10/23 MR#: [id number] Acct: [id number] Name: TAMIA PANDA Jennifer Rep #:[id number] : 1955 68 From: Jim Huddleston MD PCP: Dr. Bhupendra Oliveira MD Status :REG ER Location: ED HPI History of Present Illness Chief Complaint: Chest Pain Narrative Narrative: 68-year-old female past medical history of coronary artery disease, atrial fibrillation, on Eliquis presents with her sister because of chest pain that shestarted having about an hour ago. Of note, she states that she had a stent placed in her left artery on of last week. She supposed to follow-upwith Dr. Bart Blas, patient but she cannot remember who performed her cardiac stent placement. About an hour prior to arrival she was sitting at home, and started having the same chest pain that she had prior to her stenting. She was nauseated but did not vomit, she denies any diaphoresis or shortness of breath. She did not take her nitroglycerin that she has at home. She denies any exacerbating or alleviating factors to her chest pain. [facility] Medical History Anemia Anxiety Anxiety Arthritis Atherosclerotic heart disease of [place] coronary artery without angina pectoris Back pain Broken rib Cancer Cardiology follow-up encounter Chronic kidney disease (CKD) stage G3b/A1, moderately decreased glomerular filtration rate (GFR) between 30-44 mL/min/1.73 square meter and albuminuria creatinine ratio less than 30 mg/g Chronic respiratory insufficiency Closed intertrochanteric fracture of left femur COPD (chronic obstructive pulmonary disease) DDD (degenerative disc disease) Diabetes Diabetes mellitus type 2 in obese Diabetic neuropathy Difficulty swallowing DVT (deep venous thrombosis) Essential hypertension Excessive bleeding Fall at home Former smoker Gastric reflux Gastroparesis Gastroparesis GERD (gastroesophageal reflux disease) High cholesterol History of cervical cancer History of CHF (congestive heart failure) History of diverticulitis History of DVT (deep vein thrombosis) History of edema History of heart attack History of Holter monitoring History of IBS History of renal disease History of stress test Hypothyroidism Injury of back Insulin dependent diabetes mellitus Lung nodule Migraine headache Mixed hyperlipidemia On home oxygen therapy PARESH (obstructive sleep apnea) Paroxysmal A-fib Paroxysmal atrial fibrillation Post-menopausal Presence of stent in coronary artery (~12/07/03) Pulmonary embolism Pulmonary embolism Pulmonary hypertension RLS (restless legs syndrome) Sleep apnea Thyroid disease Tinnitus Uses wheelchair Walker as ambulation aid Wears dentures Wears glasses Wears hearing aid Home Medications atorvastatin 40 mg tablet 40 mg PO QHS CHOLESTEROL LOWERING 02/03/18 [History Last Taken 06/03/23] levothyroxine 100 mcg tablet 100 mcg PO DAILY THYROID 02/03/18 [History Last Taken 06/03/23] ascorbic acid (vitamin C) 500 mg tablet 500 mg PO DAILY@1700 supplement 05/17/18[History Last Taken 06/03/23] aspirin 81 mg tablet,delayed release 81 mg PO DAILY@1700 Heart 09/02/18 [History Last Taken 06/03/23] potassium chloride 10 mEq tablet,extended release 10 meq PO DAILY supplement 06/08/19 [History Last Taken 06/03/23] allopurinol 100 mg tablet 100 mg PO DAILY gout 08/11/19 [History Last Taken 06/03/23] furosemide 20 mg tablet 20 mg PO BID FLUID 10/25/20 [History Last Taken 06/03/23] omeprazole 40 mg capsule,delayed release 40 mg PO DAILY GERD 10/25/20 [History Last Taken 06/03/23] cholecalciferol (vitamin D3) 50 mcg (2,000 unit) capsule 2,000 unit PO DAILY SUPPLEMENT 12/13/20 [History Last Taken 06/02/23] buspirone 10 mg tablet 10 mg PO BID depression 06/12/22 [History Last Taken 06/03/23] duloxetine 60 mg capsule,delayed release 60 mg PO DAILY MENTAL HEALTH 06/12/22 [History Last Taken 06/03/23] fexofenadine 180 mg tablet 180 mg PO DAILY ALLERGIES 06/12/22 [History Last Taken 06/03/23] insulin glargine 100 unit/mL (3 mL) subcutaneous pen (Lantus Solostar U-100 Insulin) 56 unit subcut BID DM 06/12/22 [History Last Taken 06/03/23] insulin lispro 100 unit/mL subcutaneous pen 14 unit subcut BREAKFAST DIABETES 06/12/22 [History Last Taken 06/03/23] insulin lispro 100 unit/mL subcutaneous pen 14 unit subcut LUNCH DIABETES 06/12/22 [History Last Taken 06/02/23] insulin lispro 100 unit/mL subcutaneous pen 24 unit subcut DINNER DIABETES 06/12/22 [History Last Taken 06/02/23] sodium chloride 0.65 % nasal spray aerosol (Saline Mist) 2 spray intranasal TID PRN ALLERGIES 06/12/22 [History Last Taken 06/03/23] nitroglycerin 0.4 mg sublingual tablet 0.4 mg sublingual Q5-15M PRN chest pain #25 tabs 10/21/22 [Rx Last Taken 12/17/22] albuterol sulfate 90 mcg/actuation aerosol inhaler 2 puff inhalation PRN PRN COPD 12/12/22 [History Last Taken 12/17/22] amlodipine 5 mg tablet 5 mg PO DAILY BP 12/12/22 [History Last Taken 06/03/23] ferrous sulfate 325 mg (65 mg iron) tablet 325 mg PO DAILY SUPPLEMENT 12/12/22 [History Last Taken 06/03/23] isosorbide mononitrate 120 mg tablet,extended release 24 hr 120 mg PO DAILY HEART 12/12/22 [History Last Taken 06/03/23] metoprolol tartrate 100 mg tablet 100 mg PO BID Heart Rate #60 tabs 12/27/22 [Rx Last Taken 06/03/23] alendronate 70 mg tablet 70 mg PO TU BONES 06/03/23 [History Last Taken 06/03/23] buspirone 10 mg tablet 15 mg PO QHS 06/03/23 [History Last Taken 06/02/23] nystatin 100,000 unit/gram topical powder (Nyamyc) 1 applic topical TID PRN SKIN06/03/23 [History Last Taken Unknown] triamcinolone acetonide 0.1 % topical cream 1 applic topical DAILY PRN SKIN 06/03/23 [History Last Taken 06/01/23] apixaban 5 mg tablet (Eliquis) 5 mg PO BID 30 days #60 tabs 06/05/23 [Rx Last Taken Unknown] clopidogrel 75 mg tablet 75 mg PO DAILY 30 days #30 tabs 06/05/23 [Rx Last Taken Unknown] Allergy/AdvReac Type Severity Reaction Status Date / Time metoclopramide [From Reglan] Allergy Intermediate Itching Verified 06/10/23 14:07 ciprofloxacin [From Cipro] Allergy Hives Verified 06/10/23 14:07 latex Allergy stallworth me Verified 06/10/23 14:07 niacin Allergy Hives Verified 06/10/23 14:07 [From Niaspan Extended-Release] ranolazine [From Ranexa] Allergy Itching Verified 06/10/23 14:07 adhesive tape AdvReac Other Verified 06/10/23 14:07 orphenadrine citrate AdvReac groggy Verified 06/10/23 14:07 [From Norgesic] Family History Mother CAD (coronary artery disease) Father CAD (coronary artery disease) Brother CAD (coronary artery disease) Asthma Sister Hypertension Sister Diabetes Sister Heart disease Surgical History H/O heart artery stent History of cardiac catheterization History of cholecystectomy History of coronary artery stent placement History of hernia repair History of knee surgery History of left heart catheterization (LHC) (~09/28/19) History of nasal surgery History of surgery on wrist History of total abdominal hysterectomy History of tubal ligation Hx of surgical procedure Presence of coronary angioplasty implant and graft (~12/07/03) Social History Smoking Status: Former smoker alcohol intake: never substance use type: does not use caffeine: Yes Type: coffee Number of servings: 1 ROS ROS ED ROS Narrative Constitutional: No fever, no chills. HEENT: No sore throat. No neck pain. No loss of vision. No rhinorrhea. Cardiovascular: Positive midsternal chest pain. No palpitations. No pedal edema. Respiratory: No cough, no shortness of breath. Abdominal: No abdominal pain. Positive nausea. No vomiting. Genitourinary: No dysuria. No hematuria. Musculoskeletal: No myalgias. No arthralgias. Neurologic: No headaches. No dizziness. No lightheadedness. Skin: No rash. No change in color. Psychiatric: No depression. No anxiety. EXAM Physical Exam Narrative Exam Narrative: Afebrile. Vital signs noted. HEENT: Normocephalic. Atraumatic. PERRL, EOMI. Neck soft and supple. No pointtenderness or step off. Cardiovascular: Regular rate irregular rhythm, no murmurs, rubs, or gallops appreciated. Respiratory: No tachypnea. Lungs clear to auscultation bilaterally. Gastrointestinal: Abdomen soft, nontender, with normoactive bowel sounds. No rebound or guarding. Neurological: Awake. Alert. Nonfocal, nonlateralizing. Skin: No rash. Normal color. No pallor. Musculoskeletal: No pedal edema. Full range of motion extremities. Const Vital Signs: 06/10/23 14:07 06/10/23 14:17 06/10/23 14:32 Temperature 96.9 F L Temperature Source Temporal Pulse Rate 91 78 Respiratory Rate 22 H Respiratory Effort Short of Breath Blood Pressure 169/88 H 93/79 Blood Pressure Mean 115 Pulse Ox 100 Oxygen Delivery Method Room Air Oxygen Flow Rate (L/min) 06/10/23 15:01 06/10/23 15:04 06/10/23 15:23 Temperature Temperature Source Pulse Rate 89 84 96 Respiratory Rate 18 28 H Respiratory Effort Blood Pressure 120/61 120/61 120/61 Blood Pressure Mean 80 80 Pulse Ox 98 100 Oxygen Delivery Method Room Air Nasal Cannula Oxygen Flow Rate (L/min) 3 06/10/23 15:23 Temperature Temperature Source Pulse Rate 87 Respiratory Rate 20 H Respiratory Effort Blood Pressure 118/64 Blood Pressure Mean 82 Pulse Ox 99 Oxygen Delivery Method Nasal Cannula Oxygen Flow Rate (L/min) 3 MDM MDM MDM Narrative Medical decision making narrative: I did review her cath report. Concern would be for reocclusion versus postperfusion pain. In reading her previous cath report, she did have a stent prior in the diagonal branch with in-stent stenosis. Additionally, she underwent stenting of the LAD during this catheterization on . She was discharged from the hospital the following day. KG was obtained and interpretedby myself independently as atrial fibrillation at 82 bpm without other ectopy oracute ST changes. No STEMI. I will check her troponins today along with a chest x-ray and basic laboratory work. Her blood pressure had been under control and the plan was to switch her from her clipper to gel, and she started Eliquis, with plan to take her off aspirin. I reviewed her laboratory work from today, she has a normal white count of 8.3, hemoglobin 13.2, hematocrit normal at 41.5, platelet count normal at 276. BMP shows slightly elevated BUN of 24 and creatinine of 1.43, glucose appropriately elevated at 105 with a low anion gap of 2. Initial high-sensitivity troponin is11, repeat at 2 hours is also 11. I discussed the patient with Dr. Kennedy with cardiology who agrees with outpatient discharge. She did receive 2 mg of morphine for her chest pain with symptomatic relief. I feel she be discharged safely home with follow-up and that she does not require observation or admission at this time. She will follow-up with cardiology as scheduled. Return instructions to the emergency department were reviewed. Disposition is discharged home in stable condition. History & Record Review Discussion w/independent historian: Patient and Family Additional record(s) reviewed:: Prior inpatient record, Prior ED visit and Priorlabs Lab Data Attestation: I reviewed the patient's lab results. Labs: Laboratory Results - last 24 hr 06/10/23 06/10/23 06/10/23 14:30 14:50 17:09 WBC 8.3 RBC 4.16 L Hgb 13.2 Hct 41.5 MCV 99.8 H MCH 31.7 MCHC 31.8 L RDW Std Deviation 52.0 H RDW Coeff of Aubrey 14.4 Plt Count 276 MPV 11.1 Immature Gran % (Auto) 0.800 Neut % (Auto) 69.7 Lymph % (Auto) 14.5 L Winn % (Auto) 9.7 Eos % (Auto) 4.7 Baso % (Auto) 0.6 Absolute Neuts (auto) 5.8 Absolute Lymphs (auto) 1.20 Nucleated RBC % 0 Sodium Cancelled 140 Potassium Cancelled 3.9 Chloride Cancelled 106 Carbon Dioxide Cancelled 32.0 Anion Gap Cancelled 2 L BUN Cancelled 24 H Creatinine Cancelled 1.43 H Estim Creat Clear Calc Cancelled 28.41 Est GFR (MDRD) Af Amer Cancelled 47 L Est GFR (MDRD) Non-Af Cancelled 39 L BUN/Creatinine Ratio Cancelled 16.8 Glucose Cancelled 105 Calcium Cancelled 8.6 Troponin I High Sens Cancelled 11 11 Radiography Diagnostic Testing: Clinical Impression(s) from Imaging Studies Chest X-Ray 06/10/23 14:40 IMPRESSION: No acute abnormality is seen. Electronically Signed: Bentley Montejo MD at 15:05 EDT , Discharge Plan Triage Chief Complaint: Chest Pain ED Provider: Jim Huddleston Dx/Rx/DC Orders Clinical Impression: History of CAD (coronary artery disease), Chest pain Instructions: ED Chest Pain, Uncertain Cause Prescriptions: No Action potassium chloride 10 mEq tablet extended release 10 meq PO DAILY Hold Instructions: until lasix restarted allopurinol 100 mg tablet 100 mg PO DAILY buspirone 10 mg tablet 10 mg PO BID Patient Comments: PER PHARMACY PT TAKES 1 TAB (10 MG) IN THE MORNING AND AFTERNOON AND TAKES 1.5 TAB (15 MG) IN THE EVENING Rx Instructions: PER PHARMACY PT TAKES 1 TAB (10 MG) IN THE MORNING AND AFTERNOON AND TAKES 1.5 TAB (15 MG) IN THE EVENING Saline Mist 0.65 % aerosol,spray 2 spray intranasal TID PRN atorvastatin 40 MG tablet 40 mg PO QHS Patient Comments: cholesterol levothyroxine 100 MCG tablet 100 mcg PO DAILY Patient Comments: thyroid duloxetine 60 mg capsule,delayed release(DR/EC) 60 mg PO DAILY Patient Comments: mental health ascorbic acid (vitamin C) 500 MG tablet 500 mg PO DAILY@1700 Patient Comments: Supplement aspirin 81 MG tablet 81 mg PO DAILY@1700 Patient Comments: STOP 5 DAYS PRIOR TO OR fexofenadine 180 mg tablet 180 mg PO DAILY omeprazole 40 MG capsule,delayed release(DR/EC) 40 mg PO DAILY furosemide 20 MG tablet 20 mg PO BID Hold Instructions: hold until BP will allow reinitiation cholecalciferol (vitamin D3) 50 MCG capsule 2,000 unit PO DAILY insulin glargine [Lantus Solostar U-100 Insulin] 100 unit/mL (3 mL) insulin pen 56 unit SC BID insulin lispro 100 unit/mL insulin pen 14 unit SC BREAKFAST insulin lispro 100 unit/mL insulin pen 14 unit SC LUNCH insulin lispro 100 unit/mL insulin pen 24 unit SC DINNER ferrous sulfate 325 mg (65 mg iron) Tablet 325 mg PO DAILY amlodipine 5 mg tablet 5 mg PO DAILY isosorbide mononitrate 120 mg tablet extended release 24 hr 120 mg PO DAILY albuterol sulfate 90 mcg/actuation HFA aerosol inhaler 2 puff INHALATION PRN PRN (Reason: COPD) alendronate 70 mg tablet 70 mg PO TU buspirone 10 mg tablet 15 mg PO QHS Patient Comments: PER PHARMACY PT TAKES 1 TAB (10 MG) IN THE MORNING AND AFTERNOON AND TAKES 1.5 TAB (15 MG) IN THE EVENING Rx Instructions: PER PHARMACY PT TAKES 1 TAB (10 MG) IN THE MORNING AND AFTERNOON AND TAKES 1.5 TAB (15 MG) IN THE EVENING nystatin [Nyamyc] 100,000 unit/gram powder 1 applic TOPICAL TID PRN triamcinolone acetonide 0.1 % cream 1 applic TOPICAL DAILY PRN clopidogrel 75 mg Tablet 75 mg PO DAILY 30 Days Qty: 30 0RF Eliquis 5 mg Tablet 5 mg PO BID 30 Days Qty: 60 0RF nitroglycerin 0.4 mg tablet, sublingual 0.4 mg sublingual Q5-15M PRN (Reason: chest pain) Qty: 25 3RF metoprolol tartrate 100 mg tablet 100 mg PO BID Qty: 60 11RF Primary Care Provider: Bhupendra Oliveira Referrals: Bhupendra Oliveira MD [Primary Care Provider] - Bart Blas MD [Med Staff - Active Staff] - Keep Viviana appointment Activity Restrictions/Additional Instructions: Follow-up with Dr. Bart Blas as scheduled. Take your nitroglycerin as needed for chest pain. Additionally keep control of your blood pressure Disposition Disposition: Home, Self Care What to do if you have Problems For any increased pain, shortness of breath, bleeding, nausea or vomiting, chestpain, or any unexpected problems, contact your Primary Care Provider. Call [facility] ([phone]) or report to the closest Emergency Room. Call 911 if necessary. 06/10/231825 <Electronically signed by Jim Huddleston MD> Cosigner Signature (if applicable): CC: Dr. Bhupendra Oliveira MD ~ Signed 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 Would have her call them today to get their recommendations. * Telephone Encounter - Cindi Munoz RN - 06/10/2023 11:21 AM EDT Patient reports she was d/c'd from [facility] on 06-05-23. Went in with CP/a-fib. Had angiocath done with stent placement, b/c artery was 80% blocked. Was prescribed plavix 75 mg daily, eliquis 5 mg twice daily, asa 81 mg daily (for 4-6 weeks, then stop). Patient reports she was afraid to take these medications, and has not started them yet. Reports she is only taking eliquis 2.5 mg twice daily as before. Reports since returning home she has had 2 severe nose bleeds that took at least a half hour to stop, and the blood just poured out. Night before last, and last night, is when these nosebleeds occurred. She wonders if the nose bleeds are a result of the xtra blood thinners she received in [facility]. Patient states she is afraid to take the blood thinners. Please advise patient on the blood thinners. Patient has appt scheduled with pcp this coming Friday. Patient plans to call [facility] today to schedule a 1 month f/u. [facility] Discharge summary Author Roger Yang [facility] June 05, 2023 2:32pm Note Date/Time June 05, 2023 2:32pm [facility] Medical Records Department [address] [place] [address] Discharge Summary 06/05/23 1424 MR#: [id number] Acct: [id number] Name: TAMIA PANDA Rep #:[id number] : 1955 68 From: Roger chung MD PCP: Dr. Bhupendra Oliveira MD Status :ADM NICOLE Location: [place] [address] Providers Date of Admission: 06/03/23 Primary Care Physician: Dr. Bhupendra Oliveira MD Consultations 06/03/23 15:16 Consult: Cardiology Routine Consulting Provider: Wan,Bart Reason for Consult: chest pain EMERGENT Consult: No MD Notified: Yes Date Notified: 06/03/23 Time Notified: 15:10 Method of Notification: Verbal Reason For Visit: CHEST PAIN, ATRIAL FIBRILLATION Diagnosis Discharge Diagnosis (1) Atrial fibrillation: Status: Acute Code(s): I48.91 - Unspecified atrial fibrillation Qualifiers: Atrial fibrillation type: persistent (not longstanding) Qualified Code(s): I48.19 - Other persistent atrial fibrillation (2) Presence of stent in coronary artery: Status: Acute Code(s): Z95.5 - Presence of coronary angioplasty implant and graft (3) Essential hypertension: Status: Chronic Code(s): I10 - Essential (primary) hypertension Plan 1. Chest pain with CAD and previous stent/HTN/HLD/A-fib ? We will plan for cardiac cath today, will continue to hold her Eliquis ? Appreciate cardiology's assistance ? We will continue with blood pressure medications and make adjustments as necessary 2. Chronic hypoxic respiratory failure due to COPD ? Continue with her home oxygen as well as her home medications 3. DM2 ? Continue with sliding scale insulin and Lantus, Accu-Chek ACHS ? We will monitor and make adjustments as necessary 4. Hypothyroidism ? Stable ? Continue with Synthroid 5. Anxiety/depression ? Stable ? Continue with her home medications 6. GERD ? Stable ? Continue with PPI DVT: SCD Medications at Discharge Home Medications atorvastatin 40 mg tablet 40 mg PO QHS CHOLESTEROL LOWERING 02/03/18 levothyroxine 100 mcg tablet 100 mcg PO DAILY THYROID 02/03/18 ascorbic acid (vitamin C) 500 mg tablet 500 mg PO DAILY@1700 supplement 05/17/18 aspirin 81 mg tablet,delayed release 81 mg PO DAILY@1700 Heart 09/02/18 potassium chloride 10 mEq tablet,extended release 10 meq PO DAILY supplement 06/08/19 allopurinol 100 mg tablet 100 mg PO DAILY gout 08/11/19 furosemide 20 mg tablet 20 mg PO BID FLUID 10/25/20 omeprazole 40 mg capsule,delayed release 40 mg PO DAILY GERD 10/25/20 cholecalciferol (vitamin D3) 50 mcg (2,000 unit) capsule 2,000 unit PO DAILY SUPPLEMENT 12/13/20 buspirone 10 mg tablet 10 mg PO BID depression 06/12/22 duloxetine 60 mg capsule,delayed release 60 mg PO DAILY MENTAL HEALTH 06/12/22 fexofenadine 180 mg tablet 180 mg PO DAILY ALLERGIES 06/12/22 insulin glargine 100 unit/mL (3 mL) subcutaneous pen (Lantus Solostar U-100 Insulin) 56 unit subcut BID DM 06/12/22 insulin lispro 100 unit/mL subcutaneous pen 14 unit subcut BREAKFAST DIABETES 06/12/22 insulin lispro 100 unit/mL subcutaneous pen 14 unit subcut LUNCH DIABETES 06/12/22 insulin lispro 100 unit/mL subcutaneous pen 24 unit subcut DINNER DIABETES 06/12/22 sodium chloride 0.65 % nasal spray aerosol (Saline Mist) 2 spray intranasal TID PRN ALLERGIES 06/12/22 nitroglycerin 0.4 mg sublingual tablet 0.4 mg sublingual Q5-15M PRN chest pain #25 tabs 10/21/22 albuterol sulfate 90 mcg/actuation aerosol inhaler 2 puff inhalation PRN PRN COPD 12/12/22 amlodipine 5 mg tablet 5 mg PO DAILY BP 12/12/22 ferrous sulfate 325 mg (65 mg iron) tablet 325 mg PO DAILY SUPPLEMENT 12/12/22 isosorbide mononitrate 120 mg tablet,extended release 24 hr 120 mg PO DAILY HEART 12/12/22 metoprolol tartrate 100 mg tablet 100 mg PO BID Heart Rate #60 tabs 12/27/22 alendronate 70 mg tablet 70 mg PO TU BONES 06/03/23 buspirone 10 mg tablet 15 mg PO QHS 06/03/23 nystatin 100,000 unit/gram topical powder (Nyamyc) 1 applic topical TID PRN SKIN06/03/23 triamcinolone acetonide 0.1 % topical cream 1 applic topical DAILY PRN SKIN 06/03/23 apixaban 5 mg tablet (Eliquis) 5 mg PO BID 30 days #60 tabs 06/05/23 clopidogrel 75 mg tablet 75 mg PO DAILY 30 days #30 tabs 06/05/23 Hospital Course Operations None Procedures Cardiac catheterization Summary of Care Provided Minutes Spent on Discharge: 36 Hospital Course: Per HPI: TAMIA PANDA, is a 68 F who presents to the emergency room at [facility] with complaints of chest pain which started this morning, shehas a history of coronary artery disease and tells this examiner that she had a stent placed in 2003 at [facility] in [place]. She follows with Dr. Ramsey's office on an ongoing basis. Patient has a history of chronic atrialfibrillation and is currently taking Eliquis presently, she states that she had chest pain which started this morning, it was across her entire chest and into her right arm, she described the chest discomfort as dull and sharp at the same time, it also radiated into her back and according to the emergency room physician, there was some radiation into her lower abdomen. At the time of my examination in the emergency room, patient stated that her chest pain was resolved. Patient had a stress test done in September of this year that was negative for reversible ischemia. Patient is on chronic oxygen due to chronic obstructive pulmonary disease. Work-up in the emergency room included an EKG which showed her to be in atrial fibrillation with a well-controlled rate, no evidence of ischemic changes were noted, chest x-ray showed cardiomegaly, there is no evidence of congestive heartfailure. Patient's cardiac enzymes were unremarkable. Patient CBC was unremarkable, patient's chemistry profile showed a slightly elevated creatinine of 1.15, potassium was low at 3.[address] of her abdomen pelvis performed which showed a mild degree of increased markings at the lung bases suggestive of lingula atelectasis or scarring, no acute abnormality was noted. I discussed the case with Dr. Blas today, it would seem prudent to proceed withcardiac catheterization since the patient had a negative stress test within the past year. Patient will be placed in observation status on PCU, she will be monitored and repeat cardiac enzymes will be obtained, potassium replacement wasordered, labs will be monitored. Hospital Course: 1. Chest pain with a history of CAD and previous stent/HTN/HLD/A-fib?68-year old female presented to the hospital with chest pain. She underwent a heart cath on 06/04/2023 which demonstrated in-stent stenosis in the diagonal vessel and mid LAD stenosis and she received a stent to the mid LAD with a balloon angioplasty to the diagonal vessel. She is feeling much better today, and cardiology felt that she would continue with her Eliquis at 5 mg p.o. twice daily as well as Plavix and aspirin for 4 to 6 weeks and then discontinue the aspirin and continue with just Plavix and Eliquis. Recommend that she follow-upwith cardiology in that 1 month timeframe to manage his medication changes. I discussed with her the plan for discharge today she expressed understanding of the risk benefits going home and would like to go home today. Her other medications were kept this same other than the increase in Eliquis from 2.5 mg p.o. twice daily to 5 mg p.o. twice daily. I do recommend that she follow-up with her PCP in 3 to 5 days for outpatient management and follow-up. 2. Chronic hypoxic respiratory failure from COPD, type 2 diabetes, hypothyroidism, anxiety, depression, GERD are all chronic medical conditions which complicate her care. Her home medications were continued where appropriate. Physical Exam Narrative General: Alert, Oriented x3, Cooperative, No apparent distress HEENT: Atraumatic, PERRLA, EOMI, Normocephalic Oral: Moist Mucosa Neck: Supple, No JVD Lungs: Diminished, Normal air movement, No rhonchi, No wheeze, No rales Cardiovascular: Regular rate, Regular Rhythm, Normal S1, Normal S2, No murmurs Abdomen: Soft, Non Tender, Non-Distended, No Hepato-splenomegaly Extremities: No edema, Capillary Refill Less than 3 Seconds Skin: No rashes, No breakdown Musculoskeletal: No Tenderness to Palpation of Joints or Extremities Neurological: Cranial nerves II-XII grossly intact, Motor Exam 5/5 strength throughout, Sensory exam intact to light touch and pain Psych/Mental Status: Normal Affect, Appropriate Weight / BMI Weight Weight: 203 lb 4.259 oz Body Mass Index (BMI) 38.4 ABG / Lab / Microbiology Data 06/05/23 06:04 06/05/23 06:04 Laboratory: Laboratory Results - last 24 hr 06/04/23 17:08: POC Glucose 98 06/04/23 22:08: POC Glucose 256 H 06/05/23 06:04: WBC 6.9, RBC 3.73 L, Hgb 11.5 L, Hct 36.5 L, MCV 97.9, MCH 30.8,MCHC 31.5 L, RDW Std Deviation 50.3 H, RDW Coeff of Aubrey 14.2, Plt Count 180, MPV10.0, Immature Gran % (Auto) 0.600, Neut % (Auto) 72.2 H, Lymph % (Auto) 10.6 L,Winn % (Auto) 12.2 H, Eos % (Auto) 4.1, Baso % (Auto) 0.3, Absolute Neuts (auto)5.0, Absolute Lymphs (auto) 0.73 L, Nucleated RBC % 0, Sodium 142, Potassium 3.6, Chloride 106, Carbon Dioxide 32.0, Anion Gap 4 L, BUN 17, Creatinine 1.12 H, Estim Creat Clear Calc 36.28, Est GFR (MDRD) Af Amer 62, Est GFR (MDRD) Non-Af51 L, BUN/Creatinine Ratio 15.2, Glucose 168 H, Calcium 8.7, Total Bilirubin 1.10 H, AST 19, ALT 21, Alkaline Phosphatase 79, Total Protein 6.5, Albumin 2.5 L, Globulin 4.0, Albumin/Globulin Ratio 0.6 L 06/05/23 06:52: POC Glucose 158 H 06/05/23 11:17: POC Glucose 217 H D/C Instructions Discharge Diet: Low fat / Low cholesterol and Carb Control Diet Call your doctor if you observe: Fever of 101 or Higher, Shortness of breath, Dizziness, Fainting spells, Swelling in the ankles, Chest pain and Increased palpitations (irregular heartbeat) Meaningful Use Info Meaningful Use Diagnoses (Choose all that apply): None applicable Discharge Plan Admission Admit Date/Time: 06/03/23 15:05 Attending Provider: Roger Yang Primary Care Provider: Bhupendra Oliveira Consulting Providers: Bart Blas; Yared Fernández Discharge Orders/Prescriptions Prescriptions: New clopidogrel 75 mg Tablet 75 mg PO DAILY 30 Days Qty: 30 0RF Eliquis 5 mg Tablet 5 mg PO BID 30 Days Qty: 60 0RF Continued potassium chloride 10 mEq tablet extended release 10 meq PO DAILY Hold Instructions: until lasix restarted allopurinol 100 mg tablet 100 mg PO DAILY buspirone 10 mg tablet 10 mg PO BID Patient Comments: PER PHARMACY PT TAKES 1 TAB (10 MG) IN THE MORNING AND AFTERNOON AND TAKES 1.5 TAB (15 MG) IN THE EVENING Rx Instructions: PER PHARMACY PT TAKES 1 TAB (10 MG) IN THE MORNING AND AFTERNOON AND TAKES 1.5 TAB (15 MG) IN THE EVENING Saline Mist 0.65 % aerosol,spray 2 spray intranasal TID PRN atorvastatin 40 MG tablet 40 mg PO QHS Patient Comments: cholesterol levothyroxine 100 MCG tablet 100 mcg PO DAILY Patient Comments: thyroid duloxetine 60 mg capsule,delayed release(DR/EC) 60 mg PO DAILY Patient Comments: mental health ascorbic acid (vitamin C) 500 MG tablet 500 mg PO DAILY@1700 Patient Comments: Supplement aspirin 81 MG tablet 81 mg PO DAILY@1700 Patient Comments: STOP 5 DAYS PRIOR TO OR fexofenadine 180 mg tablet 180 mg PO DAILY omeprazole 40 MG capsule,delayed release(DR/EC) 40 mg PO DAILY furosemide 20 MG tablet 20 mg PO BID Hold Instructions: hold until BP will allow reinitiation cholecalciferol (vitamin D3) 50 MCG capsule 2,000 unit PO DAILY insulin glargine [Lantus Solostar U-100 Insulin] 100 unit/mL (3 mL) insulin pen 56 unit SC BID insulin lispro 100 unit/mL insulin pen 14 unit SC BREAKFAST insulin lispro 100 unit/mL insulin pen 14 unit SC LUNCH insulin lispro 100 unit/mL insulin pen 24 unit SC DINNER ferrous sulfate 325 mg (65 mg iron) Tablet 325 mg PO DAILY amlodipine 5 mg tablet 5 mg PO DAILY isosorbide mononitrate 120 mg tablet extended release 24 hr 120 mg PO DAILY albuterol sulfate 90 mcg/actuation HFA aerosol inhaler 2 puff INHALATION PRN PRN (Reason: COPD) alendronate 70 mg tablet 70 mg PO TU buspirone 10 mg tablet 15 mg PO QHS Patient Comments: PER PHARMACY PT TAKES 1 TAB (10 MG) IN THE MORNING AND AFTERNOON AND TAKES 1.5 TAB (15 MG) IN THE EVENING Rx Instructions: PER PHARMACY PT TAKES 1 TAB (10 MG) IN THE MORNING AND AFTERNOON AND TAKES 1.5 TAB (15 MG) IN THE EVENING nystatin [Nyamyc] 100,000 unit/gram powder 1 applic TOPICAL TID PRN triamcinolone acetonide 0.1 % cream 1 applic TOPICAL DAILY PRN nitroglycerin 0.4 mg tablet, sublingual 0.4 mg sublingual Q5-15M PRN (Reason: chest pain) Qty: 25 3RF metoprolol tartrate 100 mg tablet 100 mg PO BID Qty: 60 11RF Discontinued apixaban 2.5 mg tablet 2.5 mg PO BID Patient Comments: .Blood thinner- LAST DOSE 3-4 DAYS PRIOR, PT HAS WRITTEN ON PAPER Referrals / Follow Up: Bhupendra Oliveira MD [Primary Care Provider] - Within 1 Week Bart Blas MD [Med Staff - Active Staff] - Within 1 Month Disposition Disposition (needs filled in before D/C Order can be placed): Home, Self Care Charges/Coding Visit Charges Inpatient E&M: 04581 Disch Hosp >30min 06/05/23 1432 <Electronically signed by Roger Yang MD> Cosigner Signature (if applicable): CC: Dr. Bhupendra Oliveira MD; Dr. Roger Yang MD~ Signed [facility] Work Phone: 1(557) 945-931109-14-2023 Discharge summary Author Roger Yang [facility] June 05, 2023 10:44am Note Date/Time June 05, 2023 10:40am [facility] Medical Records Department [address] [place] [address] Instructions for Home/Discharge Instructions 06/05/23 1039 MR#: [id number] Acct: [id number] Name: TAMIA PANDA Rep #:[id number] : 1955 68 From: Roger chung MD PCP: Dr. Bhupendra Oliveira MD Status :ADM NICOLE Discharge Instructions Diet Discharge Diet: Low fat / Low cholesterol and Carb Control Diet Activity Discharge Activity: Return to Normal Activity Dressing / Incision Call your doctor if you observe: Fever of 101 or Higher, Shortness of breath, Dizziness, Fainting spells, Swelling in the ankles, Chest pain and Increased palpitations (irregular heartbeat) Follow Up Care Test Results: Test results from this visit will be discussed in further detail at your follow- up appointment, if applicable. Discharge Plan Admission Admit Date/Time: 06/03/23 15:05 Attending Provider: Roger Yang Primary Care Provider: Bhupendra Oliveira Consulting Providers: Bart Blas; Yared Fernández Discharge Orders/Prescriptions Prescriptions: New clopidogrel 75 mg Tablet 75 mg PO DAILY 30 Days Qty: 30 0RF Eliquis 5 mg Tablet 5 mg PO BID 30 Days Qty: 60 0RF Continued potassium chloride 10 mEq tablet extended release 10 meq PO DAILY Hold Instructions: until lasix restarted allopurinol 100 mg tablet 100 mg PO DAILY buspirone 10 mg tablet 10 mg PO BID Patient Comments: PER PHARMACY PT TAKES 1 TAB (10 MG) IN THE MORNING AND AFTERNOON AND TAKES 1.5 TAB (15 MG) IN THE EVENING Rx Instructions: PER PHARMACY PT TAKES 1 TAB (10 MG) IN THE MORNING AND AFTERNOON AND TAKES 1.5 TAB (15 MG) IN THE EVENING Saline Mist 0.65 % aerosol,spray 2 spray intranasal TID PRN atorvastatin 40 MG tablet 40 mg PO QHS Patient Comments: cholesterol levothyroxine 100 MCG tablet 100 mcg PO DAILY Patient Comments: thyroid duloxetine 60 mg capsule,delayed release(DR/EC) 60 mg PO DAILY Patient Comments: mental health ascorbic acid (vitamin C) 500 MG tablet 500 mg PO DAILY@1700 Patient Comments: Supplement aspirin 81 MG tablet 81 mg PO DAILY@1700 Patient Comments: STOP 5 DAYS PRIOR TO OR fexofenadine 180 mg tablet 180 mg PO DAILY omeprazole 40 MG capsule,delayed release(DR/EC) 40 mg PO DAILY furosemide 20 MG tablet 20 mg PO BID Hold Instructions: hold until BP will allow reinitiation cholecalciferol (vitamin D3) 50 MCG capsule 2,000 unit PO DAILY insulin glargine [Lantus Solostar U-100 Insulin] 100 unit/mL (3 mL) insulin pen 56 unit SC BID insulin lispro 100 unit/mL insulin pen 14 unit SC BREAKFAST insulin lispro 100 unit/mL insulin pen 14 unit SC LUNCH insulin lispro 100 unit/mL insulin pen 24 unit SC DINNER ferrous sulfate 325 mg (65 mg iron) Tablet 325 mg PO DAILY amlodipine 5 mg tablet 5 mg PO DAILY isosorbide mononitrate 120 mg tablet extended release 24 hr 120 mg PO DAILY albuterol sulfate 90 mcg/actuation HFA aerosol inhaler 2 puff INHALATION PRN PRN (Reason: COPD) alendronate 70 mg tablet 70 mg PO TU buspirone 10 mg tablet 15 mg PO QHS Patient Comments: PER PHARMACY PT TAKES 1 TAB (10 MG) IN THE MORNING AND AFTERNOON AND TAKES 1.5 TAB (15 MG) IN THE EVENING Rx Instructions: PER PHARMACY PT TAKES 1 TAB (10 MG) IN THE MORNING AND AFTERNOON AND TAKES 1.5 TAB (15 MG) IN THE EVENING nystatin [Nyamyc] 100,000 unit/gram powder 1 applic TOPICAL TID PRN triamcinolone acetonide 0.1 % cream 1 applic TOPICAL DAILY PRN nitroglycerin 0.4 mg tablet, sublingual 0.4 mg sublingual Q5-15M PRN (Reason: chest pain) Qty: 25 3RF metoprolol tartrate 100 mg tablet 100 mg PO BID Qty: 60 11RF Discontinued apixaban 2.5 mg tablet 2.5 mg PO BID Patient Comments: .Blood thinner- LAST DOSE 3-4 DAYS PRIOR, PT HAS WRITTEN ON PAPER Referrals / Follow Up: Bhupendra Oliveira MD [Primary Care Provider] - Within 1 Week Bart Blas MD [Med Staff - Active Staff] - Within 1 Month Disposition Disposition (needs filled in before D/C Order can be placed): Home, Self Care 06/05/23 1044<Electronically signed by Roger Yang MD>Roger Yang MD CC: Dr. Bhupendra Oliveira MD; Dr. Bart Blas MD; Dr. Yared Fernández DO ~ Signed [facility] Work Phone: [phone] 742-169109-14-2023 Progress note Author Bart Blas [facility] June 05, 2023 9:37am Note Date/Time June 05, 2023 7:24am [facility] Medical Records Department [address] [place] [address] Progress Note - Cardiology 06/05/2321 MR#: [id number] Acct: [id number] Name: TAMIA PANDA Rep #:[id number] : 1955 68 From: Bart Blas MD PCP: Dr. Bhupendra Oliveira MD Status :ADM NICOLE Location: [place] [address] Subjective Subjective Patient seen and evaluated. Appears to be doing well sleeping. Objective Data Vital Signs: Vital Signs Temp Pulse Resp BP Pulse Ox O2 Del Method O2 Flow Rate 98.5 F 83 16 100/54 L 100 Nasal Cannula 2 06/05/23 05:43 06/05/23 05:43 06/05/23 05:43 06/05/23 05:43 06/05/23 05:43 06/05/23 05:43 06/05/23 05:43 Oxygen Flow Rate (L/min) 2 Oxygen Delivery Method Nasal Cannula Weight: 203 lb 4.259 oz Body Mass Index (BMI) 38.4 Intake & Output: Intake and Output for Last 24 Hours 06/03/23 06/04/23 06/05/23 23:59 23:59 23:59 Intake Total 1000 / 1000 153.5 / 153.5 970 / 970 Balance 1000 / 1000 153.5 / 153.5 970 / 970 Lab / Micro Data 06/03/23 10:00 06/04/23 06:47 Labs: Laboratory Results - last 24 hr 06/04/23 06:47: Sodium 138, Potassium 3.6, Chloride 105, Carbon Dioxide 30.0, Anion Gap 3 L, BUN 16, Creatinine 1.22 H, Estim Creat Clear Calc 33.30, Est GFR (MDRD) Af Amer 56 L, Est GFR (MDRD) Non-Af 47 L, BUN/Creatinine Ratio 13.1, Glucose 128 H, Calcium 8.9 06/04/23 13:45: POC Glucose 83 06/04/23 17:08: POC Glucose 98 06/04/23 22:08: POC Glucose 256 H 06/05/23 06:52: POC Glucose 158 H Cardiology Labs/Tests 06/04/23 06:47: Sodium 138, Potassium 3.6, Chloride 105, Carbon Dioxide 30.0, Anion Gap 3 L, BUN 16, Creatinine 1.22 H, Est GFR (MDRD) Af Amer 56 L, Est GFR (MDRD) Non-Af 47 L, BUN/Creatinine Ratio 13.1, Glucose 128 H, Calcium 8.9 Rhythm: EKG: ECHO: Stress Test: Cardiac Cath: PCI: CT Surgery: Holter monitor: EPS: PPM: CXR: Chest CT Scan: Radiography Diagnostic Testing: Radiology Impression Echocardiogram 06/03/23 17:39 Interpretation Summary Normal LV size. Left ventricular systolic function is normal. The estimated ejection fraction is 65 %. Contrast injection was performed. Ordering Physician: Bart Blas Performed By: Nikki Jaffe RDCS Physical Exam Const alert, oriented x3 and no apparent distress General Appearance: cooperative HEENT hearing grossly normal bilaterally Head and Scalp: atraumatic Eyes EOMs intact bilaterally Neck General: normal visual inspection Chest inspection of chest normal and palpation of chest normal Resp normal respiratory effort Auscultation: clear to auscultation bilaterally Cardio regular rate, regular rhythm, S1 normal heart sound and S2 normal heart sound Jugular Venous Distention: JVD GI normal to inspection, nondistended, normoactive bowel sounds Extremity normal capillary refill and no pedal edema Peripheral Pulses: Yes pulses 2+ throughout and femoral pulses present Skin no rashes or lesions noted Neuro oriented x3 and CN's II-XII intact bilaterally Psych Appearance: grossly normal and appropriate Assessment & Plan Assessment/Plan (1) Atrial fibrillation: QUALIFIERS: Atrial fibrillation type: persistent (not longstanding) Qualified Code(s): I48.19 - Other persistent atrial fibrillation PLAN: She does have chronic persistent atrial fibrillation with a controlled ventricular response rate at this particular time. My recommendation will be for her to continue the anticoagulation after her upcoming procedure. She will also continue on the beta-sudhakar. Echocardiogram demonstrated preserved left ventricular systolic function.. (2) Presence of stent in coronary artery: PLAN: She does have a previous stent and presents with chest discomfort. Cardiac catheterization demonstrated evidence of in-stent stenosis in the diagonal vessel and mid LAD stenosis for which she underwent PCI and stenting ofthe LAD and balloon angioplasty to the diagonal vessel. She appears to doing well this morning. The plan will be to switch her to clopidogrel and aspirin and after a month to 6 weeks discontinue the aspirin and continue clopidogrel and Eliquis. She will continue with other risk factor modification. She can be discharged for outpatient follow-up. (3) Essential hypertension: PLAN: Her blood pressure appears to be under good control at this particular time and I would not recommend that we make any changes. 06/05/23 0937 <Electronically signed by Bart Blas MD> Cosigner Signature (if applicable): CC: ~ Signed [facility] Work Phone: 1(612) 356-710409-13-2023 Progress note Author Roger Yang [facility] June 04, 2023 4:26pm Note Date/Time June 04, 2023 4:16pm [facility] Medical Records Department [address] [place] [address] Progress Note - Hospitalist 06/04/23 1609 MR#: [id number] Acct: [id number] Name: TAMIA PANDA Rep #:[id number] : 1955 68 From: Roger chung MD PCP: Dr. Bhupendra Oliveira MD Status :ADM NICOLE Location: [place] [address] Subjective Subjective No issues overnight, doing well. Objective Data Objective Data Vital Signs: Vital Signs Temp Pulse Resp BP Pulse Ox O2 Del Method O2 Flow Rate 97.5 F L 69 18 111/71 100 Nasal Cannula 2 06/04/23 13:35 06/04/23 15:15 06/04/23 15:15 06/04/23 15:15 06/04/23 15:15 06/04/23 15:15 06/04/23 15:15 Oxygen Flow Rate (L/min) 2 Oxygen Delivery Method Nasal Cannula Weight: 203 lb 4.259 oz Body Mass Index (BMI) 38.4 Intake & Output: Intake and Output for Last 24 Hours 06/03/23 06/04/23 06/05/23 03:59 03:59 03:59 Intake Total 1000 / 1000 153.5 / 153.5 Balance 1000 / 1000 153.5 / 153.5 Lab / Micro Data 06/03/23 10:00 06/04/23 06:47 Labs: Laboratory Results - last 24 hr 06/03/23 17:10: POC Glucose 81 06/03/23 17:11: Troponin I High Sens 9 06/03/23 22:53: POC Glucose 156 H 06/04/23 06:09: POC Glucose 137 H 06/04/23 06:47: Sodium 138, Potassium 3.6, Chloride 105, Carbon Dioxide 30.0, Anion Gap 3 L, BUN 16, Creatinine 1.22 H, Estim Creat Clear Calc 33.30, Est GFR (MDRD) Af Amer 56 L, Est GFR (MDRD) Non-Af 47 L, BUN/Creatinine Ratio 13.1, Glucose 128 H, Calcium 8.9 06/04/23 13:45: POC Glucose 83 Radiography Diagnostic Testing: Radiology Impression Echocardiogram 06/03/23 17:39 Interpretation Summary Normal LV size. Left ventricular systolic function is normal. The estimated ejection fraction is 65 %. Contrast injection was performed. Ordering Physician: Bart Blas Performed By: Nikki Jaffe RDCS Physical Exam Narrative General: Alert, Oriented x3, Cooperative, No apparent distress HEENT: Atraumatic, PERRLA, EOMI, Normocephalic Oral: Moist Mucosa Neck: Supple, No JVD Lungs: Diminished, Normal air movement, No rhonchi, No wheeze, No rales Cardiovascular: Regular rate, Regular Rhythm, Normal S1, Normal S2, No murmurs Abdomen: Soft, Non Tender, Non-Distended, No Hepato-splenomegaly Extremities: No edema, Capillary Refill Less than 3 Seconds Skin: No rashes, No breakdown Musculoskeletal: No Tenderness to Palpation of Joints or Extremities Neurological: Cranial nerves II-XII grossly intact, Motor Exam 5/5 strength throughout, Sensory exam intact to light touch and pain Psych/Mental Status: Normal Affect, Appropriate Assessment & Plan Assessment/Plan (1) Chest pain: QUALIFIERS: Chest pain type: chest pain due to myocardial ischemia Ischemic chest pain type: unstable angina pectoris Qualified Code(s): I20.0 - Unstable angina PLAN: Plan 1. Chest pain with CAD and previous stent/HTN/HLD/A-fib ? We will plan for cardiac cath today, will continue to hold her Eliquis ? Appreciate cardiology's assistance ? We will continue with blood pressure medications and make adjustments as necessary 2. Chronic hypoxic respiratory failure due to COPD ? Continue with her home oxygen as well as her home medications 3. DM2 ? Continue with sliding scale insulin and Lantus, Accu-Chek ACHS ? We will monitor and make adjustments as necessary 4. Hypothyroidism ? Stable ? Continue with Synthroid 5. Anxiety/depression ? Stable ? Continue with her home medications 6. GERD ? Stable ? Continue with PPI DVT: SCD Charges/Coding Visit Charges Inpatient E&M: 89835 Subs Hosp L2 06/04/23 1626 <Electronically signed by Roger Yang MD> Cosigner Signature (if applicable): CC: ~ Signed [facility] Work Phone: 1(618) 338-833309-13-2023 Progress note Author Bart Blas [facility] June 04, 2023 1:16pm Note Date/Time June 04, 2023 1:17pm [facility] Medical Records Department [address] [place] [address] Progress Note - Cardiology 06/04/23 1315 MR#: [id number] Acct: [id number] Name: TAMIA PANDA Rep #:[id number] : 1955 68 From: Bart Blas MD PCP: Dr. Bhupendra Oliveira MD Status :ADM NICOLE Location: [place] [address] Subjective Subjective Patient seen and evaluated. Underwent cardiac catheterization today Objective Data Vital Signs: Vital Signs Temp Pulse Resp BP Pulse Ox O2 Del Method O2 Flow Rate 98 F 67 18 108/59 L 97 Nasal Cannula 2 06/04/23 10:35 06/04/23 10:35 06/04/23 10:35 06/04/23 10:35 06/04/23 10:35 06/04/23 10:35 06/04/23 10:35 Oxygen Flow Rate (L/min) 2 Oxygen Delivery Method Nasal Cannula Weight: 203 lb 4.259 oz Body Mass Index (BMI) 38.4 Intake & Output: Intake and Output for Last 24 Hours 06/02/23 06/03/23 06/04/23 23:59 23:59 23:59 Intake Total 1000 / 1000 Balance 1000 / 1000 Lab / Micro Data 06/03/23 10:00 06/04/23 06:47 Labs: Laboratory Results - last 24 hr 06/03/23 13:30: Troponin I High Sens 10 06/03/23 17:10: POC Glucose 81 06/03/23 17:11: Troponin I High Sens 9 06/03/23 22:53: POC Glucose 156 H 06/04/23 06:09: POC Glucose 137 H 06/04/23 06:47: Sodium 138, Potassium 3.6, Chloride 105, Carbon Dioxide 30.0, Anion Gap 3 L, BUN 16, Creatinine 1.22 H, Estim Creat Clear Calc 33.30, Est GFR (MDRD) Af Amer 56 L, Est GFR (MDRD) Non-Af 47 L, BUN/Creatinine Ratio 13.1, Glucose 128 H, Calcium 8.9 Cardiology Labs/Tests 06/04/23 06:47: Sodium 138, Potassium 3.6, Chloride 105, Carbon Dioxide 30.0, Anion Gap 3 L, BUN 16, Creatinine 1.22 H, Est GFR (MDRD) Af Amer 56 L, Est GFR (MDRD) Non-Af 47 L, BUN/Creatinine Ratio 13.1, Glucose 128 H, Calcium 8.9 Rhythm: EKG: ECHO: Stress Test: Cardiac Cath: PCI: CT Surgery: Holter monitor: EPS: PPM: CXR: Chest CT Scan: Radiography Diagnostic Testing: Radiology Impression Echocardiogram 06/03/23 17:39 Interpretation Summary Normal LV size. Left ventricular systolic function is normal. The estimated ejection fraction is 65 %. Contrast injection was performed. Ordering Physician: Bart Blas Performed By: Nikki Jaffe RDCS Physical Exam Const alert, oriented x3 and no apparent distress General Appearance: cooperative HEENT hearing grossly normal bilaterally Head and Scalp: atraumatic Eyes EOMs intact bilaterally Neck General: normal visual inspection Chest inspection of chest normal and palpation of chest normal Resp normal respiratory effort Auscultation: clear to auscultation bilaterally Cardio regular rate, regular rhythm, S1 normal heart sound and S2 normal heart sound Jugular Venous Distention: JVD GI normal to inspection, nondistended, normoactive bowel sounds Extremity normal capillary refill and no pedal edema Peripheral Pulses: Yes pulses 2+ throughout and femoral pulses present Skin no rashes or lesions noted Neuro oriented x3 and CN's II-XII intact bilaterally Psych Appearance: grossly normal and appropriate Assessment & Plan Assessment/Plan (1) Atrial fibrillation: QUALIFIERS: Atrial fibrillation type: persistent (not longstanding) Qualified Code(s): I48.19 - Other persistent atrial fibrillation PLAN: She does have chronic persistent atrial fibrillation with a controlled ventricular response rate at this particular time. My recommendation will be for her to continue the anticoagulation after her upcoming procedure. She will also continue on the beta-sudhakar. Echocardiogram demonstrated preserved left ventricular systolic function.. (2) Presence of stent in coronary artery: PLAN: She does have a previous stent and presents with chest discomfort. It is difficult to tell whether this is anginal or not. She did have a stress test which demonstrated no evidence of ischemia before over 12 months ago. Cardiac catheterization demonstrated evidence of in-stent stenosis in the diagonal vessel and mid LAD stenosis for which we will consider PCI. (3) Essential hypertension: PLAN: Her blood pressure appears to be under good control at this particular time and I would not recommend that we make any changes. (4) Chest pain: QUALIFIERS: Chest pain type: chest pain due to myocardial ischemia Ischemic chest pain type: unstable angina pectoris Qualified Code(s): I20.0 - Unstable angina PLAN: She does present with chest discomfort which appears to have borderline features. There are some atypical features but in addition she does have a previous coronary disease history and some features which typical. She will continue with aggressive therapy and the cardiac catheterization demonstrated evidence of mid LAD stenosis as well as in-stent stenosis of the diagonal vessel. Thank you for allowing me to participate in the care of your patient. Please don't hesitate to call if any issues arise. 06/04/23 1316 <Electronically signed by Bart Blas MD> Cosigner Signature (if applicable): CC: ~ Signed [facility] Work Phone: [phone]) 213-868109-13-2023 Evaluation note* Diagnosis Onset Date Resolution Status Atrial fibrillation acute History of coronary artery stent placement May 232022 acute Essential hypertension chron ic Mixed hyperlipidemia chronic Anemia acute Diabetes mellitus type 2 in obese acute Elevated transaminase level acute History of hypertension acut e Paroxysmal atrial fibrillation acute Presence of stent in coronary artery November, acute Pulmonary hypertension acute Choledocholithiasis resolved Common bile duct dilatation resolved Complicated urinary tract infection resolved Encephalopathy acute resolve d Atrial fibrillation acute History of coronary artery stent placement May 232022 acute Essential hypertension chron ic Mixed hyperlipidemia chronic [facility] Work Phone: 1(361) 354-189809-12-2023 History and physical note Author Yared Fernández [facility] June 03, 2023 9:29pm Note Date/Time June 03, 2023 9:29pm [facility] Medical Records Department [address] [facility] [place] [address] H&P Exam - Hospitalist 06/03/232116 MR#: [id number] Acct: [id number] Name: TAMIA PANDA Rep #:[id number] : 1955 68 From: Yared Fernández DO PCP: Dr. Bhupendra Oliveira MD Status :ADM NICOLE Location: [place] [address] HPI - General General Date of Admission: 06/03/23 Date of Service: 06/03/23 Chief Complaint: Chest pain HPI Narrative TAMIA PANDA, is a 68 F who presents to the emergency room at [facility] with complaints of chest pain which started this morning, she has a history of coronary artery disease and tells this examiner that she had a stent placed in 2003 at [facility] in [place]. She follows with Dr. Ramsey's office on an ongoing basis. Patient has a history of chronic atrial fibrillation and is currently taking Eliquis presently, she states that she had chest pain which started this morning, it was across her entire chest and into her right arm, she described the chest discomfort as dull and sharp at the same time, it also radiated into her back and according to the emergency room physician, there was some radiation into her lower abdomen. At the time of my examination in the emergency room, patient stated that her chest pain was resolved. Patient had a stress test done in September of this year that was negative for reversible ischemia. Patient is on chronic oxygen due to chronic obstructive pulmonary disease. Work-up in the emergency room included an EKG which showed her to be in atrial fibrillation with a well-controlled rate, no evidence of ischemic changes were noted, chest x-ray showed cardiomegaly, there is no evidence of congestive heartfailure. Patient's cardiac enzymes were unremarkable. Patient CBC was unremarkable, patient's chemistry profile showed a slightly elevated creatinine of 1.15, potassium was low at 3.[address] of her abdomen pelvis performed which showed a mild degree of increased markings at the lung bases suggestive of lingula atelectasis or scarring, no acute abnormality was noted. I discussed the case with Dr. Blas today, it would seem prudent to proceed withcardiac catheterization since the patient had a negative stress test within the past year. Patient will be placed in observation status on PCU, she will be monitored and repeat cardiac enzymes will be obtained, potassium replacement wasordered, labs will be monitored. [facility] Medical History Anemia Anxiety Anxiety Arthritis Atherosclerotic heart disease of [place] coronary artery without angina pectoris Back pain Broken rib Cancer Cardiology follow-up encounter Chronic kidney disease (CKD) stage G3b/A1, moderately decreased glomerular filtration rate (GFR) between 30-44 mL/min/1.73 square meter and albuminuria creatinine ratio less than 30 mg/g Chronic respiratory insufficiency Closed intertrochanteric fracture of left femur COPD (chronic obstructive pulmonary disease) DDD (degenerative disc disease) Diabetes Diabetes mellitus type 2 in obese Diabetic neuropathy Difficulty swallowing DVT (deep venous thrombosis) Essential hypertension Excessive bleeding Fall at home Former smoker Gastric reflux Gastroparesis Gastroparesis GERD (gastroesophageal reflux disease) High cholesterol History of cervical cancer History of CHF (congestive heart failure) History of diverticulitis History of DVT (deep vein thrombosis) History of edema History of heart attack History of Holter monitoring History of IBS History of renal disease History of stress test Hypothyroidism Injury of back Insulin dependent diabetes mellitus Lung nodule Migraine headache Mixed hyperlipidemia On home oxygen therapy PARESH (obstructive sleep apnea) Paroxysmal A-fib Paroxysmal atrial fibrillation Post-menopausal Presence of stent in coronary artery (~12/07/03) Pulmonary embolism Pulmonary embolism Pulmonary hypertension RLS (restless legs syndrome) Sleep apnea Thyroid disease Tinnitus Uses wheelchair Walker as ambulation aid Wears dentures Wears glasses Wears hearing aid Home Medications atorvastatin 40 mg tablet 40 mg PO QHS CHOLESTEROL LOWERING 02/03/18 [History Last Taken 06/03/23] levothyroxine 100 mcg tablet 100 mcg PO DAILY THYROID 02/03/18 [History Last Taken 06/03/23] ascorbic acid (vitamin C) 500 mg tablet 500 mg PO DAILY@1700 supplement 05/17/18[History Last Taken 06/03/23] aspirin 81 mg tablet,delayed release 81 mg PO DAILY@1700 Heart 09/02/18 [History Last Taken 06/03/23] potassium chloride 10 mEq tablet,extended release 10 meq PO DAILY supplement 06/08/19 [History Last Taken 06/03/23] allopurinol 100 mg tablet 100 mg PO DAILY gout 08/11/19 [History Last Taken 06/03/23] furosemide 20 mg tablet 20 mg PO BID FLUID 10/25/20 [History Last Taken 06/03/23] omeprazole 40 mg capsule,delayed release 40 mg PO DAILY GERD 10/25/20 [History Last Taken 06/03/23] cholecalciferol (vitamin D3) 50 mcg (2,000 unit) capsule 2,000 unit PO DAILY SUPPLEMENT 12/13/20 [History Last Taken 06/02/23] buspirone 10 mg tablet 10 mg PO BID depression 06/12/22 [History Last Taken 06/03/23] duloxetine 60 mg capsule,delayed release 60 mg PO DAILY MENTAL HEALTH 06/12/22 [History Last Taken 06/03/23] fexofenadine 180 mg tablet 180 mg PO DAILY ALLERGIES 06/12/22 [History Last Taken 06/03/23] insulin glargine 100 unit/mL (3 mL) subcutaneous pen (Lantus Solostar U-100 Insulin) 56 unit subcut BID DM 06/12/22 [History Last Taken 06/03/23] insulin lispro 100 unit/mL subcutaneous pen 14 unit subcut BREAKFAST DIABETES 06/12/22 [History Last Taken 06/03/23] insulin lispro 100 unit/mL subcutaneous pen 14 unit subcut LUNCH DIABETES 06/12/22 [History Last Taken 06/02/23] insulin lispro 100 unit/mL subcutaneous pen 24 unit subcut DINNER DIABETES 06/12/22 [History Last Taken 06/02/23] sodium chloride 0.65 % nasal spray aerosol (Saline Mist) 2 spray intranasal TID PRN ALLERGIES 06/12/22 [History Last Taken 06/03/23] nitroglycerin 0.4 mg sublingual tablet 0.4 mg sublingual Q5-15M PRN chest pain #25 tabs 10/21/22 [Rx Last Taken 12/17/22] apixaban 2.5 mg tablet 2.5 mg PO BID Blood thinner 11/12/22 [History Last Taken 06/03/23] albuterol sulfate 90 mcg/actuation aerosol inhaler 2 puff inhalation PRN PRN COPD 12/12/22 [History Last Taken 12/17/22] amlodipine 5 mg tablet 5 mg PO DAILY BP 12/12/22 [History Last Taken 06/03/23] ferrous sulfate 325 mg (65 mg iron) tablet 325 mg PO DAILY SUPPLEMENT 12/12/22 [History Last Taken 06/03/23] isosorbide mononitrate 120 mg tablet,extended release 24 hr 120 mg PO DAILY HEART 12/12/22 [History Last Taken 06/03/23] metoprolol tartrate 100 mg tablet 100 mg PO BID Heart Rate #60 tabs 12/27/22 [Rx Last Taken 06/03/23] alendronate 70 mg tablet 70 mg PO TU BONES 06/03/23 [History Last Taken 06/03/23] buspirone 10 mg tablet 15 mg PO QHS 06/03/23 [History Last Taken 06/02/23] nystatin 100,000 unit/gram topical powder (Nyamyc) 1 applic topical TID PRN SKIN06/03/23 [History Last Taken Unknown] triamcinolone acetonide 0.1 % topical cream 1 applic topical DAILY PRN SKIN 06/03/23 [History Last Taken 06/01/23] Allergy/AdvReac Type Severity Reaction Status Date / Time metoclopramide [From Reglan] Allergy Intermediate Itching Verified 06/03/23 14:20 ciprofloxacin [From Cipro] Allergy Hives Verified 06/03/23 14:20 latex Allergy stallworth me Verified 06/03/23 14:20 niacin Allergy Hives Verified 06/03/23 14:20 [From Niaspan Extended-Release] ranolazine [From Ranexa] Allergy Itching Verified 06/03/23 14:20 adhesive tape AdvReac Other Verified 06/03/23 14:20 orphenadrine citrate AdvReac groggy Verified 06/03/23 14:20 [From Norgesic] Family History Mother CAD (coronary artery disease) Father CAD (coronary artery disease) Brother CAD (coronary artery disease) Asthma Sister Hypertension Sister Diabetes Sister Heart disease Surgical History History of cardiac catheterization History of cholecystectomy History of coronary artery stent placement History of hernia repair History of knee surgery History of left heart catheterization (LHC) (~09/28/19) History of nasal surgery History of surgery on wrist History of total abdominal hysterectomy History of tubal ligation Hx of surgical procedure Presence of coronary angioplasty implant and graft (~12/07/03) Social History Smoking Status: Former smoker alcohol intake: never substance use type: does not use caffeine: Yes Type: coffee Number of servings: 1 ROS Constitutional Constitutional: Denies anorexia, change in weight, chills, fatigue, fever(s), night sweats or weakness Eyes Eyes: Denies blurry vision, change in vision, discharge from eye(s) or eye pain Cardiovascular Cardiovascular: Reports chest pain and dyspnea on exertion; Denies claudication,edema or palpitations Respiratory/Chest Respiratory/Chest: Reports shortness of breath with exertion; Denies cough, dyspnea, excessive phlegm production, hemoptysis or shortness of breath at rest Gastrointestinal Gastrointestinal: Denies abdominal pain, constipation, diarrhea, hematemesis, hematochezia, melena, nausea or vomiting Genitourinary Genitourinary: Denies dysuria, hematuria, urinary frequency, urinary hesitancy, urinary incontinence or urinary urgency Musculoskeletal Musculoskeletal: Denies back pain, joint pain, joint stiffness, joint swelling, myalgias or neck pain Neurologic Neurologic: Denies abnormal gait, abnormal speech, confusion, disequilibrium, dizziness, focal weakness, headache(s), loss of vision, numbness, other visual disturbances, paresthesias, syncope or tingling Psychiatric Psychiatric: Denies anxiety, cognitive impairment, depression, irritability, mood swings or suicidal ideation Endocrine Endocrinology: Denies change in body appearance, cold intolerance, excessive sweating, heat intolerance, polydipsia or polyuria Hematologic/Lymphatic Hematologic/Lymphatic: Denies none, anemia, easy bleeding, easy bruising or lymphadenopathy Allergic/Immunologic Allergic/Immunologic: Denies rhinitis, urticaria, eczemia or asthma Vital Signs Vital Signs Vital Signs: 06/03/23 09:47 06/03/23 10:11 06/03/23 13:47 Temperature 98 F 98.3 F Temperature Source Temporal Oral Pulse Rate 90 92 Respiratory Rate 20 H 20 H Respiratory Effort Respiratory Depth Respiratory Pattern Blood Pressure 154/97 H 113/97 H Blood Pressure Mean 116 102 Blood Pressure Source Blood Pressure Position Blood Pressure Location Pulse Ox 96 100 Oxygen Delivery Method Nasal Cannula Nasal Cannula Nasal Cannula Oxygen Flow Rate (L/min) 3 2 4 06/03/23 15:30 06/03/23 20:30 06/03/23 20:30 Temperature 98.3 F Temperature Source Oral Pulse Rate 77 Respiratory Rate 16 18 Respiratory Effort Normal Non-Labored Respiratory Depth Shallow Respiratory Pattern Normal Blood Pressure 149/83 H Blood Pressure Mean 105 Blood Pressure Source Monitor Blood Pressure Position Semi-Fowlers Blood Pressure Location Right Arm Pulse Ox 99 93 96 Oxygen Delivery Method Nasal Cannula Nasal Cannula Nasal Cannula Oxygen Flow Rate (L/min) 3 2 2 Weight Weight: 92.2 kg Body Mass Index (BMI) 38.4 Physical Exam Const alert, oriented x3 and no apparent distress Constitutional Narrative: Patient appears older than her stated age General Appearance: cooperative, well kempt and well developed Orientation / Consciousness: awake, oriented to person, oriented to place and oriented to time HEENT normocephalic, head/scalp atraumatic, hearing grossly normal bilaterally and moist oral mucous membranes Eyes PERRL, EOMs intact bilaterally and conjunctivae normal Neck supple, no JVD, thyroid normal and no carotid bruits General: trachea midline Resp normal respiratory effort, no retractions, no use of accessory muscles and clearto auscultation bilaterally Auscultation: Negative for rales, rhonchi or wheezes Cardio S1 normal heart sound, S2 normal heart sound, no murmurs, no rub and no gallops Cardio Narrative: Heart rate and rhythm is irregular GI normal to inspection, nondistended, normoactive bowel sounds, soft to palpation,non-tender and non-distended Extremity no clubbing, cyanosis or edema Skin no rashes or lesions noted General Skin Exam: no breakdown Neuro oriented x3, CN's II-XII intact bilaterally, no focal motor deficits and no sensory deficits noted Sensorium / Orientation: awake and alert Speech: speech normal Psych affect normal Results Lab / Micro Data 06/03/23 10:00 06/03/23 11:17 Labs: Laboratory Results - last 24 hr 06/03/23 10:00: WBC 8.0, RBC 4.37, Hgb 13.4, Hct 42.0, MCV 96.1, MCH 30.7, MCHC 31.9 L, RDW Std Deviation 49.8 H, RDW Coeff of Aubrey 14.2, Plt Count 244, MPV 10.8, Immature Gran % (Auto) 0.800, Neut % (Auto) 71.5 H, Lymph % (Auto) 13.0 L,Winn % (Auto) 8.8, Eos % (Auto) 5.5 H, Baso % (Auto) 0.4, Absolute Neuts (auto) 5.7, Absolute Lymphs (auto) 1.04, Nucleated RBC % 0, Sodium Cancelled, PotassiumCancelled, Chloride Cancelled, Carbon Dioxide Cancelled, Anion Gap Cancelled, BUN Cancelled, Creatinine Cancelled, Estim Creat Clear Calc Cancelled, Est GFR (MDRD) Af Amer Cancelled, Est GFR (MDRD) Non-Af Cancelled, BUN/Creatinine Ratio Cancelled, Glucose Cancelled, Calcium Cancelled, Total Bilirubin Cancelled, Direct Bilirubin Cancelled, AST Cancelled, ALT Cancelled, Alkaline Phosphatase Cancelled, Troponin I High Sens Cancelled, Total Protein Cancelled, Albumin Cancelled, Globulin Cancelled, Lipase Cancelled 06/03/23 11:17: Sodium 141, Potassium 3.3 L, Chloride 105, Carbon Dioxide 34.0 H, Anion Gap 2 L, BUN 21 H, Creatinine 1.15 H, Estim Creat Clear Calc 35.33, Est GFR (MDRD) Af Amer 60, Est GFR (MDRD) Non-Af 50 L, BUN/Creatinine Ratio 18.3, Glucose 89, Calcium 8.5, Total Bilirubin 0.90, Direct Bilirubin 0.42 H, AST 21, ALT 19, Alkaline Phosphatase 83, Troponin I High Sens 10, Total Protein 7.9, Albumin 3.1 L, Globulin 4.8 H, Lipase 21 06/03/23 13:30: Troponin I High Sens 10 06/03/23 17:10: POC Glucose 81 06/03/23 17:11: Troponin I High Sens 9 Radiology Impression Chest/Abdomen/Pelvis CT 06/03/23 10:02 IMPRESSION: Mild degree of increased markings at the lung bases suggestive of either atelectasis and/or scarring. Small left renal cyst. Prior ventral hernia repair. Atherosclerotic calcific plaques of the thoracic and abdominal aorta. Status post cholecystectomy with dilated intrahepatic biliary ducts and common bile duct. Electronically Signed: Bentley Montejo MD at 12:37 EDT , Chest X-Ray 06/03/23 11:15 IMPRESSION: Cardiomegaly. The lungs are clear. Electronically Signed: Bentley Montejo MD at 12:04 EDT , Assessment & Plan Assessment/Plan (1) Chest pain: QUALIFIERS: Chest pain type: chest pain due to myocardial ischemia Ischemic chest pain type: unstable angina pectoris Qualified Code(s): I20.0 - Unstable angina PLAN: Plan 1. Precordial chest pain in a patient with known coronary artery disease-patient will be placed in observation status on PCU, cardiac enzymes will be cycled, patient will be seen in consultation by cardiology, she will undergo cardiac catheterization tomorrow, she will be monitored on telemetry #2 permanent atrial fibrillation-patient's Eliquis will be held for her cardiac catheterization, patient is on rate control medication, this will be continued #3 type 2 diabetes-patient's blood sugars will be monitored with fingerstick blood sugars, sliding scale insulin will be given as necessary #4 hypothyroidism-patient will remain on Synthroid #5 chronic obstructive pulmonary disease-patient was placed on albuterol aerosols as needed, she does not use an inhaler on a regular basis, she does usea rescue inhaler #6 chronic hypoxic respiratory failure-patient is on chronic oxygen, pulse ox will be monitored #7 hyperlipidemia-patient is on Lipitor, this will be continued during her hospitalization #8 chronic depression-patient is currently on Cymbalta, this will be continued #9 hypokalemia-patient will be given potassium replacement, labs will be monitored Total clinical time spent by myself addressing the patient's medical issues, reviewing all of her data, and collaborating with the patient's care team: 55 minutes Charges/Coding Visit Charges Inpatient E&M: 15545 Init Hosp L2 06/03/232128 <Electronically signed by Yared Fernández DO> Cosigner Signature (if applicable): CC: Dr. Bhupendra Oliveira MD; Dr. Yared Fernández DO~ Signed [facility] Work Phone: 1(694) 730-502009-12-2023 Consult note Author Bart Blas [facility] June 03, 2023 5:40pm Note Date/Time June 03, 2023 5:27pm [facility] Medical Records Department [address] [place] [address] Consultation - Cardiology 06/03/23 1720 MR#: [id number] Acct: [id number] Name: TAMIA PANDA Rep #:[id number] : 1955 68 From: Bart Blas MD PCP: Dr. Bhupendra Oliveira MD Status :ADM NICOLE Location: [place] [address] Assessment & Plan Assessment/Plan (1) Atrial fibrillation: QUALIFIERS: Atrial fibrillation type: persistent (not longstanding) Qualified Code(s): I48.19 - Other persistent atrial fibrillation PLAN: She does have chronic persistent atrial fibrillation with a controlled ventricular response rate at this particular time. My recommendation will be for her to continue the anticoagulation after her upcoming procedure. She will also continue on the beta-sudhakar. We should obtain an echocardiogram to assessher ventricular function. (2) Presence of stent in coronary artery: PLAN: She does have a previous stent and presents with chest discomfort. It is difficult to tell whether this is anginal or not. She did have a stress test which demonstrated no evidence of ischemia before over 12 months ago. At this juncture I will suggest that she be further evaluated with a cardiac catheterization and depending on the findings further recommendations will be made. Risk benefits alternatives have been explained to her she understands andagrees to proceed. (3) Essential hypertension: PLAN: Her blood pressure appears to be under good control at this particular time and I would not recommend that we make any changes. (4) Chest pain: QUALIFIERS: Ischemic chest pain type: unstable angina pectoris Chest pain type: chest pain due to myocardial ischemia Qualified Code(s): I20.0- Unstable angina PLAN: She does present with chest discomfort which appears to have borderline features. There are some atypical features but in addition she does have a previous coronary disease history and some features which typical. Based on this I will recommend that we obtain a cardiac catheterization and then further recommendations made. This has been explained to her and she understands and agrees to proceed. She will need medication optimization after the cardiac catheterization. Thank you for allowing me to participate in the care of your patient. Please don't hesitate to call if any issues arise. HPI Consult Data Date of Consult: 06/03/23 HPI Narrative HPI Narrative: TAMIA PANDA, is a 68 F who presents with chest discomfort which she described as a heaviness in the center of her chest radiating to her back and also her right arm. She has a history of coronary artery disease, previous PCI, paroxysmal atrial fibrillation, chronic diastolic mediated CHF, superimposed on hyperlipidemia, hypertension, diabetes mellitus, chronic renal insufficiency, a history of thromboembolic disease with DVT/PE, and obstructive sleep apnea. Shehad been doing quite well on her current medications with no chest discomfort. She however presented to the emergency room with the above. She did take some sublingual nitroglycerin with some relief and then it appeared to recur. She therefore restarted it. In the emergency room she was noted to be in atrial fibrillation with a controlled ventricular response rate, cardiac enzymes were noted to be normal and blood pressure was noted to be normal. Cardiology was called for further evaluation and management. Her last catheterization in September 2019 demonstrated the following:LEFT MAIN: Mild luminal irregularities ,LEFT ANTERIOR DESCENDING ARTERY: PROX LAD: ectatic / aneurysmal appearing MID LAD: s/p DX1: 25 % Stenosis, 25 - 50 % Stenosis DIAGONAL 1: Proximal - Previously placed stent is patent CIRCUMFLEX ARTERY: OM 1: Proximal - is occluded and fills late, faintly, and partially from left to left and right to left collaterals RIGHT CORONARY ARTERY:Mild luminal irregularities PROX RCA: diffuse: eccentric: 25 % Stenosis RT PDA: Proximal - diffuse: eccentric: 50 % Stenosis, Mid - diffuse: eccentric: 50 % Stenosis The ejection fraction was preserved. [facility] Medical History Anemia Anxiety Anxiety Arthritis Atherosclerotic heart disease of [place] coronary artery without angina pectoris Back pain Broken rib Cancer Cardiology follow-up encounter Chronic kidney disease (CKD) stage G3b/A1, moderately decreased glomerular filtration rate (GFR) between 30-44 mL/min/1.73 square meter and albuminuria creatinine ratio less than 30 mg/g Chronic respiratory insufficiency Closed intertrochanteric fracture of left femur COPD (chronic obstructive pulmonary disease) DDD (degenerative disc disease) Diabetes Diabetes mellitus type 2 in obese Diabetic neuropathy Difficulty swallowing DVT (deep venous thrombosis) Essential hypertension Excessive bleeding Fall at home Former smoker Gastric reflux Gastroparesis Gastroparesis GERD (gastroesophageal reflux disease) High cholesterol History of cervical cancer History of CHF (congestive heart failure) History of diverticulitis History of DVT (deep vein thrombosis) History of edema History of heart attack History of Holter monitoring History of IBS History of renal disease History of stress test Hypothyroidism Injury of back Insulin dependent diabetes mellitus Lung nodule Migraine headache Mixed hyperlipidemia On home oxygen therapy PARESH (obstructive sleep apnea) Paroxysmal A-fib Paroxysmal atrial fibrillation Post-menopausal Presence of stent in coronary artery (~12/07/03) Pulmonary embolism Pulmonary embolism Pulmonary hypertension RLS (restless legs syndrome) Sleep apnea Thyroid disease Tinnitus Uses wheelchair Walker as ambulation aid Wears dentures Wears glasses Wears hearing aid Home Medications atorvastatin 40 mg tablet 40 mg PO QHS CHOLESTEROL LOWERING 02/03/18 [History Last Taken 06/03/23] levothyroxine 100 mcg tablet 100 mcg PO DAILY THYROID 02/03/18 [History Last Taken 06/03/23] ascorbic acid (vitamin C) 500 mg tablet 500 mg PO DAILY@1700 supplement 05/17/18[History Last Taken 06/03/23] aspirin 81 mg tablet,delayed release 81 mg PO DAILY@1700 Heart 09/02/18 [History Last Taken 06/03/23] potassium chloride 10 mEq tablet,extended release 10 meq PO DAILY supplement 06/08/19 [History Last Taken 06/03/23] allopurinol 100 mg tablet 100 mg PO DAILY gout 08/11/19 [History Last Taken 06/03/23] furosemide 20 mg tablet 20 mg PO BID FLUID 10/25/20 [History Last Taken 06/03/23] omeprazole 40 mg capsule,delayed release 40 mg PO DAILY GERD 10/25/20 [History Last Taken 06/03/23] cholecalciferol (vitamin D3) 50 mcg (2,000 unit) capsule 2,000 unit PO DAILY SUPPLEMENT 12/13/20 [History Last Taken 06/02/23] buspirone 10 mg tablet 10 mg PO BID depression 06/12/22 [History Last Taken 06/03/23] duloxetine 60 mg capsule,delayed release 60 mg PO DAILY MENTAL HEALTH 06/12/22 [History Last Taken 06/03/23] fexofenadine 180 mg tablet 180 mg PO DAILY ALLERGIES 06/12/22 [History Last Taken 06/03/23] insulin glargine 100 unit/mL (3 mL) subcutaneous pen (Lantus Solostar U-100 Insulin) 56 unit subcut BID DM 06/12/22 [History Last Taken 06/03/23] insulin lispro 100 unit/mL subcutaneous pen 14 unit subcut BREAKFAST DIABETES 06/12/22 [History Last Taken 06/03/23] insulin lispro 100 unit/mL subcutaneous pen 14 unit subcut LUNCH DIABETES 06/12/22 [History Last Taken 06/02/23] insulin lispro 100 unit/mL subcutaneous pen 24 unit subcut DINNER DIABETES 06/12/22 [History Last Taken 06/02/23] sodium chloride 0.65 % nasal spray aerosol (Saline Mist) 2 spray intranasal TID PRN ALLERGIES 06/12/22 [History Last Taken 06/03/23] nitroglycerin 0.4 mg sublingual tablet 0.4 mg sublingual Q5-15M PRN chest pain #25 tabs 10/21/22 [Rx Last Taken 12/17/22] apixaban 2.5 mg tablet 2.5 mg PO BID Blood thinner 11/12/22 [History Last Taken 06/03/23] albuterol sulfate 90 mcg/actuation aerosol inhaler 2 puff inhalation PRN PRN COPD 12/12/22 [History Last Taken 12/17/22] amlodipine 5 mg tablet 5 mg PO DAILY BP 12/12/22 [History Last Taken 06/03/23] ferrous sulfate 325 mg (65 mg iron) tablet 325 mg PO DAILY SUPPLEMENT 12/12/22 [History Last Taken 06/03/23] isosorbide mononitrate 120 mg tablet,extended release 24 hr 120 mg PO DAILY HEART 12/12/22 [History Last Taken 06/03/23] metoprolol tartrate 100 mg tablet 100 mg PO BID Heart Rate #60 tabs 12/27/22 [Rx Last Taken 06/03/23] alendronate 70 mg tablet 70 mg PO TU BONES 06/03/23 [History Last Taken 06/03/23] buspirone 10 mg tablet 15 mg PO QHS 06/03/23 [History Last Taken 06/02/23] nystatin 100,000 unit/gram topical powder ([facility]) 1 applic topical TID PRN SKIN06/03/23 [History Last Taken Unknown] triamcinolone acetonide 0.1 % topical cream 1 applic topical DAILY PRN SKIN 06/03/23 [History Last Taken 06/01/23] Allergy/AdvReac Type Severity Reaction Status Date / Time metoclopramide [From Reglan] Allergy Intermediate Itching Verified 06/03/23 14:20 ciprofloxacin [From Cipro] Allergy Hives Verified 06/03/23 14:20 latex Allergy stallworth me Verified 06/03/23 14:20 niacin Allergy Hives Verified 06/03/23 14:20 [From Niaspan Extended-Release] ranolazine [From Ranexa] Allergy Itching Verified 06/03/23 14:20 adhesive tape AdvReac Other Verified 06/03/23 14:20 orphenadrine citrate AdvReac groggy Verified 06/03/23 14:20 [From Norgesic] Family History Mother CAD (coronary artery disease) Father CAD (coronary artery disease) Brother CAD (coronary artery disease) Asthma Sister Hypertension Sister Diabetes Sister Heart disease Surgical History History of cardiac catheterization History of cholecystectomy History of coronary artery stent placement History of hernia repair History of knee surgery History of left heart catheterization (LHC) (~09/28/19) History of nasal surgery History of surgery on wrist History of total abdominal hysterectomy History of tubal ligation Hx of surgical procedure Presence of coronary angioplasty implant and graft (~12/07/03) Social History Smoking Status: Former smoker alcohol intake: never substance use type: does not use caffeine: Yes Type: coffee Number of servings: 1 Physical Exam Const alert, oriented x3 and no apparent distress General Appearance: cooperative HEENT hearing grossly normal bilaterally Head and Scalp: atraumatic Eyes EOMs intact bilaterally Neck General: normal visual inspection Chest inspection of chest normal and palpation of chest normal Resp normal respiratory effort Auscultation: clear to auscultation bilaterally Cardio S1 normal heart sound and S2 normal heart sound Jugular Venous Distention: JVD Rhythm: abnormal rhythm irregularly irregular GI normal to inspection, nondistended, normoactive bowel sounds Extremity normal capillary refill and no pedal edema Peripheral Pulses: Yes pulses 2+ throughout and femoral pulses present Skin no rashes or lesions noted Neuro oriented x3 and CN's II-XII intact bilaterally Psych Appearance: grossly normal and appropriate Risk Stratification Risk Stratification Applicable: Yes Age >/= 65: Yes >/= 3 CAD Risk Factors (HTN, HLD, DM, family hx of CAD, or current smoker): Yes Aspirin Use in the Past 7 Days: Yes Severe Angina (>/= episodes in 24 hours): No EKG ST Changes >/= 0.5mm: No Positive Cardiac Marker: No SYLVIE Risk Stratification Score: 3 SYLVIE % Risk: 13% Risk Objective Data Vital Signs: Vital Signs Temp Pulse Resp BP Pulse Ox O2 Del Method O2 Flow Rate 98.3 F 77 16 149/83 H 99 Nasal Cannula 3 06/03/23 15:30 06/03/23 15:30 06/03/23 15:30 06/03/23 15:30 06/03/23 15:30 06/03/23 15:30 06/03/23 15:30 Oxygen Flow Rate (L/min) 3 Oxygen Delivery Method Nasal Cannula Weight: 203 lb 4.259 oz Body Mass Index (BMI) 38.4 Intake & Output: Intake and Output for Last 24 Hours 06/01/23 06/02/23 06/03/23 23:59 23:59 23:59 Intake Total 1000 / 1000 Balance 1000 / 1000 Lab / Micro Data 06/03/23 10:00 06/03/23 11:17 Labs: Laboratory Results - last 24 hr 06/03/23 10:00: WBC 8.0, RBC 4.37, Hgb 13.4, Hct 42.0, MCV 96.1, MCH 30.7, MCHC 31.9 L, RDW Std Deviation 49.8 H, RDW Coeff of Aubrey 14.2, Plt Count 244, MPV 10.8, Immature Gran % (Auto) 0.800, Neut % (Auto) 71.5 H, Lymph % (Auto) 13.0 L,Winn % (Auto) 8.8, Eos % (Auto) 5.5 H, Baso % (Auto) 0.4, Absolute Neuts (auto) 5.7, Absolute Lymphs (auto) 1.04, Nucleated RBC % 0, Sodium Cancelled, PotassiumCancelled, Chloride Cancelled, Carbon Dioxide Cancelled, Anion Gap Cancelled, BUN Cancelled, Creatinine Cancelled, Estim Creat Clear Calc Cancelled, Est GFR (MDRD) Af Amer Cancelled, Est GFR (MDRD) Non-Af Cancelled, BUN/Creatinine Ratio Cancelled, Glucose Cancelled, Calcium Cancelled, Total Bilirubin Cancelled, Direct Bilirubin Cancelled, AST Cancelled, ALT Cancelled, Alkaline Phosphatase Cancelled, Troponin I High Sens Cancelled, Total Protein Cancelled, Albumin Cancelled, Globulin Cancelled, Lipase Cancelled 06/03/23 11:17: Sodium 141, Potassium 3.3 L, Chloride 105, Carbon Dioxide 34.0 H, Anion Gap 2 L, BUN 21 H, Creatinine 1.15 H, Estim Creat Clear Calc 35.33, Est GFR (MDRD) Af Amer 60, Est GFR (MDRD) Non-Af 50 L, BUN/Creatinine Ratio 18.3, Glucose 89, Calcium 8.5, Total Bilirubin 0.90, Direct Bilirubin 0.42 H, AST 21, ALT 19, Alkaline Phosphatase 83, Troponin I High Sens 10, Total Protein 7.9, Albumin 3.1 L, Globulin 4.8 H, Lipase 21 06/03/23 13:30: Troponin I High Sens 10 Cardiology Labs/Tests 06/03/23 10:00: WBC 8.0, RBC 4.37, Hgb 13.4, Hct 42.0, MCV 96.1, MCH 30.7, MCHC 31.9 L, Plt Count 244, MPV 10.8, Immature Gran % (Auto) 0.800, Neut % (Auto) 71.5 H, Lymph % (Auto) 13.0 L, Winn % (Auto) 8.8, Eos % (Auto) 5.5 H, Baso % (Auto) 0.4, Absolute Neuts (auto) 5.7, Nucleated RBC % 0, Sodium Cancelled, Potassium Cancelled, Chloride Cancelled, Carbon Dioxide Cancelled, Anion Gap Cancelled, BUN Cancelled, Creatinine Cancelled, Est GFR (MDRD) Af Amer Cancelled, Est GFR (MDRD) Non-Af Cancelled, BUN/Creatinine Ratio Cancelled, Glucose Cancelled, Calcium Cancelled, Total Bilirubin Cancelled, Direct Bilirubin Cancelled 06/03/23 11:17: Sodium 141, Potassium 3.3 L, Chloride 105, Carbon Dioxide 34.0 H, Anion Gap 2 L, BUN 21 H, Creatinine 1.15 H, Est GFR (MDRD) Af Amer 60, Est GFR(MDRD) Non-Af 50 L, BUN/Creatinine Ratio 18.3, Glucose 89, Calcium 8.5, Total Bilirubin 0.90, Direct Bilirubin 0.42 H Rhythm: EKG: ECHO: Stress Test: Cardiac Cath: PCI: CT Surgery: Holter monitor: EPS: PPM: CXR: Chest CT Scan: Radiography Diagnostic Testing: Radiology Impression Chest/Abdomen/Pelvis CT 06/03/23 10:02 IMPRESSION: Mild degree of increased markings at the lung bases suggestive of either atelectasis and/or scarring. Small left renal cyst. Prior ventral hernia repair. Atherosclerotic calcific plaques of the thoracic and abdominal aorta. Status post cholecystectomy with dilated intrahepatic biliary ducts and common bile duct. Electronically Signed: Bentley Montejo MD at 12:37 EDT , Chest X-Ray 06/03/23 11:15 IMPRESSION: Cardiomegaly. The lungs are clear. Electronically Signed: Bentley Montejo MD at 12:04 EDT , 06/03/23 1740 <Electronically signed by Bart Blas MD> Cosigner Signature (if applicable): CC: Dr. Bhupendra Oliveira MD; Dr. Bart Blas MD~ Signed [facility] Work Phone: [phone]) 934-778109-12-2023 Discharge summary Author Maria Fernanda Moss [facility] June 03, 2023 4:26pm Note Date/Time June 03, 2023 10:06am [facility] Medical Records Department [address] [place] [address] Emergency Department Summary 06/03/23 MR#: [id number] Acct: [id number] Name: TAMIA PANDA Rep #:[id number] : 1955 68 From: Maria Fernanda Moss DO PCP: Dr. Bhupendra Oliveira MD Status :ADM NICOLE Location: [place] [address] HPI History of Present Illness Chief Complaint: Chest Pain Detail of Chief Complaint: Chest and abdomen pain Informant: patient Narrative Narrative: Presents with complaint of pain in her chest and abdomen that started rather suddenly around 8:45 AM. Pain is dull and sharp and achy and pressure all at the same time. She thinks it started in the center of her chest and epigastric region and had a radiated across her chest and into her back and lower abdomen. Patient took 2 nitro and the second 1 seemed to help a little bit. Currently rates her pain an 8 or 9 out of 10. Denies nausea or vomiting. She denies feeling short of breath. She is never quite had pain like this before. Patientdoes have history of coronary artery disease and has a stent. Had a stress testin September and her last heart cath was about 3 years ago. Patient had COVID diagnosed May 14 but she feels like she is completely recovered currently. [facility] Medical History Anemia Anxiety Anxiety Arthritis Atherosclerotic heart disease of [place] coronary artery without angina pectoris Back pain Broken rib Cancer Cardiology follow-up encounter Chronic kidney disease (CKD) stage G3b/A1, moderately decreased glomerular filtration rate (GFR) between 30-44 mL/min/1.73 square meter and albuminuria creatinine ratio less than 30 mg/g Chronic respiratory insufficiency Closed intertrochanteric fracture of left femur COPD (chronic obstructive pulmonary disease) DDD (degenerative disc disease) Diabetes Diabetes mellitus type 2 in obese Diabetic neuropathy Difficulty swallowing DVT (deep venous thrombosis) Essential hypertension Excessive bleeding Fall at home Former smoker Gastric reflux Gastroparesis Gastroparesis GERD (gastroesophageal reflux disease) High cholesterol History of cervical cancer History of CHF (congestive heart failure) History of diverticulitis History of DVT (deep vein thrombosis) History of edema History of heart attack History of Holter monitoring History of IBS History of renal disease History of stress test Hypothyroidism Injury of back Insulin dependent diabetes mellitus Lung nodule Migraine headache Mixed hyperlipidemia On home oxygen therapy PARESH (obstructive sleep apnea) Paroxysmal A-fib Paroxysmal atrial fibrillation Post-menopausal Presence of stent in coronary artery (~12/07/03) Pulmonary embolism Pulmonary embolism Pulmonary hypertension RLS (restless legs syndrome) Sleep apnea Thyroid disease Tinnitus Uses wheelchair Walker as ambulation aid Wears dentures Wears glasses Wears hearing aid Home Medications atorvastatin 40 mg tablet 40 mg PO QHS CHOLESTEROL LOWERING 02/03/18 [History Last Taken 06/03/23] levothyroxine 100 mcg tablet 100 mcg PO DAILY THYROID 02/03/18 [History Last Taken 06/03/23] ascorbic acid (vitamin C) 500 mg tablet 500 mg PO DAILY@1700 supplement 05/17/18[History Last Taken 06/03/23] aspirin 81 mg tablet,delayed release 81 mg PO DAILY@1700 Heart 09/02/18 [History Last Taken 06/03/23] potassium chloride 10 mEq tablet,extended release 10 meq PO DAILY supplement 06/08/19 [History Last Taken 06/03/23] allopurinol 100 mg tablet 100 mg PO DAILY gout 08/11/19 [History Last Taken 06/03/23] furosemide 20 mg tablet 20 mg PO BID FLUID 10/25/20 [History Last Taken 06/03/23] omeprazole 40 mg capsule,delayed release 40 mg PO DAILY GERD 10/25/20 [History Last Taken 06/03/23] cholecalciferol (vitamin D3) 50 mcg (2,000 unit) capsule 2,000 unit PO DAILY SUPPLEMENT 12/13/20 [History Last Taken 06/02/23] buspirone 10 mg tablet 10 mg PO BID depression 06/12/22 [History Last Taken 06/03/23] duloxetine 60 mg capsule,delayed release 60 mg PO DAILY MENTAL HEALTH 06/12/22 [History Last Taken 06/03/23] fexofenadine 180 mg tablet 180 mg PO DAILY ALLERGIES 06/12/22 [History Last Taken 06/03/23] insulin glargine 100 unit/mL (3 mL) subcutaneous pen (Lantus Solostar U-100 Insulin) 56 unit subcut BID DM 06/12/22 [History Last Taken 06/03/23] insulin lispro 100 unit/mL subcutaneous pen 14 unit subcut BREAKFAST DIABETES 06/12/22 [History Last Taken 06/03/23] insulin lispro 100 unit/mL subcutaneous pen 14 unit subcut LUNCH DIABETES 06/12/22 [History Last Taken 06/02/23] insulin lispro 100 unit/mL subcutaneous pen 24 unit subcut DINNER DIABETES 06/12/22 [History Last Taken 06/02/23] sodium chloride 0.65 % nasal spray aerosol (Saline Mist) 2 spray intranasal TID PRN ALLERGIES 06/12/22 [History Last Taken 06/03/23] nitroglycerin 0.4 mg sublingual tablet 0.4 mg sublingual Q5-15M PRN chest pain #25 tabs 10/21/22 [Rx Last Taken 12/17/22] apixaban 2.5 mg tablet 2.5 mg PO BID Blood thinner 11/12/22 [History Last Taken 06/03/23] albuterol sulfate 90 mcg/actuation aerosol inhaler 2 puff inhalation PRN PRN COPD 12/12/22 [History Last Taken 12/17/22] amlodipine 5 mg tablet 5 mg PO DAILY BP 12/12/22 [History Last Taken 06/03/23] ferrous sulfate 325 mg (65 mg iron) tablet 325 mg PO DAILY SUPPLEMENT 12/12/22 [History Last Taken 06/03/23] isosorbide mononitrate 120 mg tablet,extended release 24 hr 120 mg PO DAILY HEART 12/12/22 [History Last Taken 06/03/23] metoprolol tartrate 100 mg tablet 100 mg PO BID Heart Rate #60 tabs 12/27/22 [Rx Last Taken 06/03/23] alendronate 70 mg tablet 70 mg PO TU BONES 06/03/23 [History Last Taken 06/03/23] buspirone 10 mg tablet 15 mg PO QHS 06/03/23 [History Last Taken 06/02/23] nystatin 100,000 unit/gram topical powder ([facility]) 1 applic topical TID PRN SKIN06/03/23 [History Last Taken Unknown] triamcinolone acetonide 0.1 % topical cream 1 applic topical DAILY PRN SKIN 06/03/23 [History Last Taken 06/01/23] Allergy/AdvReac Type Severity Reaction Status Date / Time metoclopramide [From Reglan] Allergy Intermediate Itching Verified 06/03/23 14:20 ciprofloxacin [From Cipro] Allergy Hives Verified 06/03/23 14:20 latex Allergy stallworth me Verified 06/03/23 14:20 niacin Allergy Hives Verified 06/03/23 14:20 [From Niaspan Extended-Release] ranolazine [From Ranexa] Allergy Itching Verified 06/03/23 14:20 adhesive tape AdvReac Other Verified 06/03/23 14:20 orphenadrine citrate AdvReac groggy Verified 06/03/23 14:20 [From Norgesic] Family History Mother CAD (coronary artery disease) Father CAD (coronary artery disease) Brother CAD (coronary artery disease) Asthma Sister Hypertension Sister Diabetes Sister Heart disease Surgical History History of cardiac catheterization History of cholecystectomy History of coronary artery stent placement History of hernia repair History of knee surgery History of left heart catheterization (LHC) (~09/28/19) History of nasal surgery History of surgery on wrist History of total abdominal hysterectomy History of tubal ligation Hx of surgical procedure Presence of coronary angioplasty implant and graft (~12/07/03) Social History Smoking Status: Former smoker alcohol intake: never substance use type: does not use caffeine: Yes Type: coffee Number of servings: 1 ROS ROS ED Review of Systems ROS Unobtainable: other Constitutional Constitutional ED: Reports lethargy; Denies chills, fever(s), sweats or weight loss Eyes Eyes: Denies blurry vision, change in vision or diplopia ENT ENT ED: Denies rhinorrhea or sore throat Cardiovascular Cardiovascular: Reports chest pain; Denies orthopnea or racing heartbeat Respiratory/Chest Respiratory/Chest: Denies cough, dyspnea, dyspnea on exertion, orthopnea or sputum Gastrointestinal Gastrointestinal: Reports abdominal pain; Denies diarrhea, nausea or vomiting Genitourinary Genitourinary ED: Denies dysuria, hematuria or urinary frequency Musculoskeletal Musculoskeletal: Denies arthralgias, back pain, myalgias or neck pain Integumentary Denies abscess, Abrasions or rash Neurologic Neurologic: Denies headache(s) or weakness Psychiatric Psychiatric: Denies anxiety, depression or suicidal thoughts Endocrine Endocrinology: Denies polydipsia, polyphagia or polyuria Hematologic/Lymphatic Hematologic/Lymphatic: Denies easy bleeding, easy bruising or lymphadenopathy Allergic/Immunologic Allergic/Immunologic ED: Denies mouth swelling, tongue swelling or urticaria EXAM Physical Exam Const Vital Signs: 06/03/23 09:47 06/03/23 10:11 Temperature 98 F Temperature Source Temporal Pulse Rate 90 Respiratory Rate 20 H Blood Pressure 154/97 H Blood Pressure Mean 116 Pulse Ox 96 Oxygen Delivery Method Nasal Cannula Nasal Cannula Oxygen Flow Rate (L/min) 3 2 Positive well nourished and well developed General Appearance ED: well developed and NAD HEENT Reports TM's clear and moist mucous membranes normocephalic and atraumatic; Negative for trauma or tenderness Tympanic Membrane ED: Yes TM's clear Eyes PERRL and EOMs intact bilaterally General Eye ED: Negative for pale conjunctiva or scleral icterus Neck no lymphadenopathy, supple and no JVD General: Negative for tenderness Chest Wall inspection of chest normal and palpation of chest normal Chest: Negative for tenderness Resp normal respiratory effort and clear to auscultation bilaterally Effort and Inspection: Negative for respiratory distress or pain with movement Auscultation: Negative for rhonchi, wheezes or diminished lung sounds Cardio regular rate, regular rhythm, S1 normal heart sound, S2 normal heart sound and no murmurs Peripheral Pulses: pulses 2+ throughout GI normal to inspection, nondistended, normoactive bowel sounds, soft to palpation,non-distended and no masses GI Narrative: To palpation in the epigastric region and diffusely to the abdomen. There are some mild guarding. There is no rebound, rigidity, or. Signs. No pulsatile mass palpated although exam difficult secondary to patient's body habitus. Back/Spine no CVA tenderness and no thoracic nor lumbar tenderness Extremity normal to inspection General Extremety ED: Negative for edema General Extremity: Negative for edema Neuro oriented x3, CN's II-XII intact bilaterally, no sensory deficits noted and gait normal Sensorium / Orientation: awake, alert, oriented to person, oriented to place andoriented to time Motor Exam: strength 5/5 throughout and strength abnormal Psych mental status grossly normal Skin no rashes or lesions noted and no wounds MDM MDM MDM Narrative Medical decision making narrative: With chest discomfort that came on this morning. In the differential would be acute coronary syndrome versus esophageal spasm or intra-abdominal process such as bowel obstruction or pancreatitis. She does have known history of coronary artery disease. IV line was established. EKG obtained arrival initially showedA-fib with a rate of [address] changes. Patient continued to complain of worsening pain and a repeat EKG was obtained that showed atrial fibrillation with nonspecific ST changes that seem to be somewhat more pronounced in leads V4, V5 and V6 with flipped T waves. And was ordered sublingual nitro. She was ordered morphine for pain. CBC with differential obtained showing of 8.0 with hemoglobin of 13 and hematocrit of 42 and platelet count of 244. I did order a CT of the chest abdomen and pelvis with IV contrastto rule out dissection. Currently anticoagulated with Eliquis. Lab Data Attestation: I reviewed the patient's lab results. Labs: Laboratory Results - last 24 hr 06/03/23 06/03/23 10:00 11:17 WBC 8.0 RBC 4.37 Hgb 13.4 Hct 42.0 MCV 96.1 MCH 30.7 MCHC 31.9 L RDW Std Deviation 49.8 H RDW Coeff of Aubrey 14.2 Plt Count 244 MPV 10.8 Immature Gran % (Auto) 0.800 Neut % (Auto) 71.5 H Lymph % (Auto) 13.0 L Winn % (Auto) 8.8 Eos % (Auto) 5.5 H Baso % (Auto) 0.4 Absolute Neuts (auto) 5.7 Absolute Lymphs (auto) 1.04 Nucleated RBC % 0 Sodium Cancelled 141 Potassium Cancelled 3.3 L Chloride Cancelled 105 Carbon Dioxide Cancelled 34.0 H Anion Gap Cancelled 2 L BUN Cancelled 21 H Creatinine Cancelled 1.15 H Estim Creat Clear Calc Cancelled 35.33 Est GFR (MDRD) Af Amer Cancelled 60 Est GFR (MDRD) Non-Af Cancelled 50 L BUN/Creatinine Ratio Cancelled 18.3 Glucose Cancelled 89 Calcium Cancelled 8.5 Total Bilirubin Cancelled 0.90 Direct Bilirubin Cancelled 0.42 H AST Cancelled 21 ALT Cancelled 19 Alkaline Phosphatase Cancelled 83 Troponin I High Sens Cancelled 10 Total Protein Cancelled 7.9 Albumin Cancelled 3.1 L Globulin Cancelled 4.8 H Lipase Cancelled 21 Radiography Diagnostic Testing: Clinical Impression(s) from Imaging Studies Chest/Abdomen/Pelvis CT 06/03/23 10:02 IMPRESSION: Mild degree of increased markings at the lung bases suggestive of either atelectasis and/or scarring. Small left renal cyst. Prior ventral hernia repair. Atherosclerotic calcific plaques of the thoracic and abdominal aorta. Status post cholecystectomy with dilated intrahepatic biliary ducts and common bile duct. Electronically Signed: Bentley Montejo MD at 12:37 EDT , Chest X-Ray 06/03/23 11:15 IMPRESSION: Cardiomegaly. The lungs are clear. Electronically Signed: Bentley Montejo MD at 12:04 EDT , Chest x-ray obtained interpreted by myself as no evidence of pneumothorax or infiltrate or acute disease process. No evidence of widened mediastinum. Official report from radiology pending. EKG Initial EKG: Attestation: I personally reviewed and interpreted this EKG as follows: Comments: Atrial fibrillation with a ventricular rate of [address] changes. Repeat EKG obtained for ongoing pain showed A-fib with nonspecific ST changes innew changes known V4 V5 and V6 with flipped T waves. ST depression Discharge Plan Dx/Rx/DC Orders Clinical Impression: Atrial fibrillation, History of hypertension, History of CAD (coronary artery disease), Chest pain Disposition Disposition: Acute Care Hospital [facility] Discharge Date/Time: 06/03/23 14:58 What to do if you have Problems For any increased pain, shortness of breath, bleeding, nausea or vomiting, chestpain, or any unexpected problems, contact your Primary Care Provider. Call [facility] ([phone]) or report to the closest Emergency Room. Call 911 if necessary. 06/03/23 [id number] <Electronically signed by Maria Fernanda Moss DO> Cornelio Signature (if applicable): CC: Dr. Bhupendra Oliveira MD ~ Signed [facility] Work Phone: 1(510) 320-377009-12-2023 Miscellaneous Notes* Telephone Encounter - Monique Montoya LPN - 06/03/2023 10:51 AM EDT Patient has been identified by name and date of : Yes Patient phones for refill(s): Requested Prescriptions Pending Prescriptions Disp Refills insulin glargine (LANTUS SOLOSTAR U-100 INSULIN) 100 unit/mL (3 mL) 15 Each 5 Sig: Inject 56 units subcutaneously twice daily Date of last office visit in primary care: 05/13/2023 3 month follow-up: 08/13/2023 Last 2 Encounter Wt Readings: Date: Wt: 05/13/2023 89.9 kg (198 lb 3.2 oz) 04/03/2023 89.8 kg (198 lb) Previous labs/tests for medication: Diabetes: Hemoglobin A1C (%) Date Value 02/06/2023 8.0 09/27/2022 6.5 11/13/2021 6.1 12/07/2020 6.3 Hemoglobin A1C (POCT) (%) Date Value 05/13/2023 7.9 05/25/2021 6.0 Please advise. Thank you. Monique Montoya LPN documented in this encounterBrecksville [facility] Miscellaneous Notes* Telephone Encounter - Jneny Ramires RN - 05/15/2023 3:27 PM EDT Call placed to patient and provider message reviewed. Patient verbalizes understanding. Patient requests this nurse relay message to sister as she will be transportation and is being difficult. Message relayed to sister who verbalizes understanding and will transport patient to [facility] ER. Jenny Ramires RN * Telephone Encounter - Nanda Oliveira MD - 05/15/2023 3:19 PM EDT Patient is high risk for severe COVID infection and would agree with ER evaluation. She already haschronic lung disease and new chest pain could be related to heart or a blood clot, both of which could be fatal. We dont want her to from this, so again, would recommend ER. * Telephone Encounter - Jenny Ramires RN - 05/15/2023 2:34 PM EDT Patient calls to report Covid + with SOB worse than patient's normal, Chest Pain, Headache, Stuffy nose, runny nose, and sneezing. Nurse triage completed. Protocol recommends ED Now. Patient declines. Patient doesn't feel ER is necessary. Reports she doesn't have transportation and she just saw provider this week (Katie on 05/13/2023). Offered squad transport. Patient declined. Reason for Disposition MODERATE difficulty breathing (e.g., speaks in phrases, SOB even at rest, pulse 100-120) Answer Assessment - Initial Assessment Questions 1. COVID-19 DIAGNOSIS: Positive at-home Covid test today. Symptoms started 2-3 days ago. 2. COVID-19 EXPOSURE: Not that patient is aware of. 3. ONSET: 2-3 days ago. 4. WORST SYMPTOM: Patient reports headache and stuffy nose but also notes increased SOB from baseline with exertion and at rest as well as intermittent chest pain. 5. COUGH: Cough productive- clear to white mucus. 6. FEVER: No 7. RESPIRATORY STATUS: Shortness of breath with exertion and at rest at times. No wheezing. Speaks in sentences. 8. LJSHNU-WRHW-RDWPY: Compared to yesterday patient reports worse. 9. HIGH RISK DISEASE: Type 2 DM, A-Fib, CHF, Pulmonary HTN, Chronic Resp Failure, CKD 3 10. VACCINE: Pfizer 11/30/2020 and 12/21/2020 11. BOOSTER: Overdue 13. OTHER SYMPTOMS: Headache, fatigue, stuffy nose, runny nose, sneezing. No chills, loss of smell or taste, muscle pain, sore throat. 14. O2 SATURATION MONITOR: Patient not able to find pulse oximeter. Patient on oxygen at 3 LPM via nc. Protocols used: Coronavirus (COVID-19) Diagnosed or [id number]-LX documented in this encounterBrecksville [facility]08-22-2023 Instructions* Patient Instructions* Katie Mckeon APRN.CNP - 05/13/2023 1:02 PM EDT Call in two weeks with 14 day average of blood sugars- sooner if getting lows Call [facility] about wheelchair and let us know if they need more information for wheelchair documented in this encounterBrecksville [facility]08-[facility] History of Present illness Narrative* Katie Mckeon APRN.CNP - 05/13/2023 12:06 PM EDT 05/13/2023 Patient presents with: F/U 3 Month SUBJECTIVE: This is a 68 year old that is here today for Above Complaints. Since last office visit was seen in ER for chest pain. Told to follow-up with cardiology as outpatient. Reports she has follow-up in May. Admits she gets cehst pain here or there. Denies changein baseline SOB- uses oxygen continuously DIABETES MELLITUS: Ms. Panda was last seen on 03/17/2023. Since our last visit she denies excessive thirst or increased frequency of urination, chest pain or dyspnea , numbness, tingling or pain in extremities, new or unusual visual symptoms, low sugar/hypoglycemic reactions, weight loss/gain, lighth eadedness/dizziness, and bowel changes/loose stools. Rare hypoglycemia. Follows a diabetic diet generally not very much. She is compliant with medication(s) and is tolerating med(s) without any side effects. She reports checking her glucose on a 4-5 times schedule with sugars in the 30 day average 190 range. Patient's last HgA1C was Hemoglobin A1C (%) Date Value 02/06/2023 8.0 09/27/2022 6.5 11/13/2021 6.1 12/07/2020 6.3 Hemoglobin A1C (POCT) (%) Date Value 05/25/2021 6.0 ) Has upcoming eye appointment in June Average glucose for 7 day 164, 14 days, 181 30 days 190, 90 days 204 Gets mom meals 14 meals for two weeks. Reports never received or heard back from [employer] for her wheelchair. Did not try to reach out to them PAST MEDICAL HISTORY Diagnosis Date Acute chronic obstructive pulmonary disease with respiratory failure AF (paroxysmal atrial fibrillation) ([facility]) Anxiety Arthritis Seeing Dr Elliott Cervical cancer ([facility]) hysterectomy CHF (congestive heart failure) ([facility]) Dr. Ramsey Chronic back pain Seeing Dr. Wallace Chronic respiratory failure with hypercapnia ([facility]) 10/06/2018 [facility], 09/09/2018: 7.38/54.7/77/32.6 on 30% O2. CKD (chronic kidney disease), stage III ([facility]) Constipation Coronary atherosclerosis of [place] coronary artery Cyst of left kidney repeat US 10/2020 DDD (degenerative disc disease), lumbar DM type 2 (diabetes mellitus, type 2) ([facility]) Dr. Lopez for podiatry DVT (deep venous thrombosis) ([facility]) Post op INA, BSO. Dysphagia Seeing Dr. Beaulieu Emphysema lung ([facility]) Essential hypertension Femur fracture, left ([facility]) 07/2022 s/p nail Functional dyspepsia Gastroparesis 2016 mild GERD without esophagitis Gout Headache History of colon polyps 11/28/2016 Hyperlipidemia Hyperuricemia Hypothyroidism Incontinence Seeing Dr. Chapman Lung nodule 02/[address] in 3 months Morbid obesity ([facility]) Muscle weakness Nausea Obesity hypoventilation syndrome ([facility]) on 2-3 L oxygen continuously PARESH on CPAP [facility] for BiPAP and [facility] for O2. PE (pulmonary thromboembolism) ([facility]) Post op INA/BSO. Pneumonia Pulmonary HTN ([facility]) Renal cyst repeat US 10/2020 RLS (restless legs syndrome) Shortness of breath Sleep apnea using oxygen currently, not on CPAP Unsteadiness on feet Vitamin D deficiency Wheezing ALLERGIES Adhesive Tape (Rosins), Cats, Dogs, Orphenadrine, Capsaicin, Ciprofloxacin, Keflex [Cephalexin], Niacin, Reglan [Metoclopramide Hcl], Xanthines, and Zofran [Ondansetron Hcl (Pf)] MEDICATIONS Current Outpatient Medications Medication Sig insulin lispro (HUMALOG KWIKPEN INSULIN) 200 unit/mL (3 mL) injection Inject 14units with breakfast, 14 units with lunch, and 24 units with dinner ferrous sulfate 325 mg (65 mg iron) tablet Take 1 tablet by mouth daily with breakfast. alendronate (FOSAMAX) 70 mg tablet Take 1 tablet by mouth one time a week. Take with a full glass of water, on an empty stomach; do NOT lie down for 30minutes. busPIRone (BUSPAR) 10 mg tablet Take one tablet in the AM, one tablet in the afternoon and 1.5 tablets in the evening alcohol swabs Use up to 9 times per day to clean skin before testing blood sugar and injecting insulins (100 per box) Cholecalciferol, Vitamin D3, (VITAMIN D-3) 50 mcg (2,000 unit) cap Take 1 capsule by mouth once daily. apixaban (ELIQUIS) 2.5 mg tab(s) Take 1 tablet by mouth twice daily. nystatin (MYCOSTATIN) powder Apply 1 application to affected area three times daily. albuterol HFA (PROAIR HFA) 90 mcg/actuation inhaler Inhale 2 Puffs as instructed every 4 hours as needed for wheezing/shortness of breath. blood sugar diagnostic (BLOOD GLUCOSE TEST) test strip Test blood sugar(s) 4 times daily. Dx: Type 2 DM - Uncontrolled E11.65 Insulin: Yes insulin glargine (LANTUS SOLOSTAR U-100 INSULIN) 100 unit/mL (3 mL) Inject 54 units subcutaneously twice daily Lancets lancets Test blood sugar(s) 4 times daily. Dx: Type 2 DM - Uncontrolled E11.65 Insulin: Yes cycloSPORINE (CEQUA) 0.09 % dropperette Use 1 Drop in both eyes every 12 hours. atorvastatin (LIPITOR) 40 mg tablet Take 1 tablet by mouth once daily. DULoxetine (CYMBALTA) 60 mg capsule Take 1 capsule by mouth once daily. levothyroxine (SYNTHROID) 100 mcg tablet Take 1 tablet by mouth every morning. furosemide (LASIX) 20 mg tablet Take 1 tablet by mouth twice daily. fexofenadine (ALLEN ALLERGY) 180 mg tablet Take 1 tablet by mouth once daily. ascorbic acid, vitamin C, (VITAMIN C) 500 mg tablet Take 1 tablet by mouth once daily. Incontinence Pad, Liner, Disp (BLADDER CONTROL PADS EX ABSORB) pads 1 Device as needed. aspirin, enteric coated (ASPIRIN, ENTERIC COATED) 81 mg EC tablet Take 1 tablet by mouth every morning. omeprazole (PRILOSEC) 40 mg capsule Take 1 capsule by mouth once daily. allopurinol (ZYLOPRIM) 100 mg tablet Take 1 tablet by mouth once daily. For gout. potassium chloride (K-TAB) 10 mEq tablet Take 1 tablet by mouth daily with breakfast. oxyCODONE IR (ROXICODONE) 5 mg immediate release tablet Take by mouth every 8 hours as needed for pain. blood sugar diagnostic (BLOOD GLUCOSE TEST) test strip Test blood sugar(s) up to 4 times daily. Dx:Type 2 DM - Uncontrolled E11.65 Insulin: Yes Freestyle Kira compatible test strips insulin needles, DISPOSABLE, (ULTICARE PEN NEEDLE) 31 gauge x 5/16 USE DIRECTED. TO INJECT INSULINS cyclobenzaprine (FLEXERIL) 10 mg tablet Take 1 tablet by mouth twice daily as needed for muscle spasm. BIPAP Bilevel PAP 16/12 cmH2O with 2 LPM oxygen bleed in, mask, tubing, filters, heated humidity, lifetime supplies. Dx: G47.33, G47.39. metoprolol tartrate, short acting, (LOPRESSOR) 50 mg tablet Take 1.5 tablets by mouth twice daily. lidocaine (XYLOCAINE) 5 % ointment Apply to affected area as needed. use a small amount to affectedarea qid prn pain Facial Mask misc 1 Device once daily. Oxygen mask to be worn daily for history of hypoxia. nitroglycerin sublingual (NITROQUICK) 0.4 mg SL tablet DISSOLVE 1 TAB UNDER THE TONGUE NEEDED FOR CHEST PAIN EVERY 5 MINUTES UP TO 3 TIMES. IF NO RELIEF CALL 911. isosorbide mononitrate ER (IMDUR) 120 mg 24 hr tablet TAKE 1 TABLETS BY MOUTH EVERY MORNING - (120mg daily) COMPOUNDED PRESCRIPTION Pulse oximetry to be used PRN for SOB for COPD DX:J96.12 fluorometholone (FML LIQUID FILM) 0.1 % ophthalmic suspension 1 Drop every 4 hours. flash glucose scanning reader (Pict KIRA 14 DAY READER) [facility] Use to check blood sugars 4-5 times per day Dx: Type 2 diabetes mellitus treated with insulin E11.9 flash glucose sensor (FREESTYLE KIRA 14 DAY SENSOR) kit Use to check blood sugars 4-5 times per day. Dx: Type 2 diabetes mellitus treated with insulin E11.9 glucose 4 gram chewable tablet TAKE 4 TABLETS BY MOUTH NEEDED FOR LOW BLOOD SUGAR. COMPOUNDED PRESCRIPTION Please fit for BiPAP mask. COMPOUNDED PRESCRIPTION OCD Titration for portable oxygen concentrator Oxygen Flow Rate between 2-6liters. To keep oxygen saturation at or above 92%. OXYGEN, HOME THERAPY, Inhale 3 L/min as instructed as directed. COMPOUNDED PRESCRIPTION Evaluation for diabetic shoes and inserts Dx: E11.65, Z79.4 Incontinence Pad, Liner, Disp pads 1 Device as needed (urinary incontinence). Prevail incontinence pads. Dx: urinary incontinence. Size: small Blood-Glucose Meter (ONETOUCH ULTRA2) monitoring kit UAD to test blood sugar No current facility-administered medications for this visit. Medications and allergies reviewed by this provider. SOCIAL HISTORY Social History Tobacco Use Smoking status: Former Packs/day: 1.00 Years: 28.00 Additional pack years: 0.00 Total pack years: 28.00 Types: Cigarettes Start date: 1978 Quit date: 09/22/2005 Years since quittin.6 Smokeless tobacco: Never Tobacco comments: Father smoked in childhood. 2nd spouse smoked in home. Vaping Use Vaping Use: Never used Substance Use Topics Alcohol use: No Drug use: No REVIEW OF SYSTEMS All other reviewed and negative other than HPI. OBJECTIVE: BP 104/62 Pulse 64 Resp 18 Wt 89.9 kg (198 lb 3.2 oz) SpO2 99% BMI 36.25 kg/m . Vital signs reviewed by this provider. APPEARANCE Well appearing, alert, in no acute distress, well-hydrated, well nourished. EYES PERRLA, conjunctiva and sclera normal. HEART RRR with normal S1 and S2, no murmurs, no gallops, no JVD appreciated LUNG clear to auscultation EXTREMITIES Extremities normal, No deformities, No skin discoloration, and No edema SKIN petechial rash on forearms bilaterally otherwise Skin color, texture, turgor normal, no suspicious rashes or lesions to exposed skin DM foot exam: shoes and socks removed, No deformities, ulcers, calluses, diminished distal pulses, and sensitive to 10 gm monofilament. Dry skin to bilateral feet COLORECTAL CANCER SCREENING due on 11/29/2021 MAMMOGRAM due on 12/28/2021 DILATED RETINAL EXAM due on 04/02/2022 ADVANCE DIRECTIVE DISCUSSION Never done COVID-19 VACCINE(5 - Pfizer series) due on 11/04/2022 DIABETIC FOOT EXAM due on 03/01/2023 SHINGRIX VACCINE(2 of 3) due on 02/07/2024 INFLUENZA(1) due on 05/23/2023 LDL CHOLESTEROL due on 09/27/2023 HBA1C due on 11/13/2023 SERUM CREATININE due on 02/07/2024 URINE ALBUMIN:CREATININE RATIO due on 03/17/2024 HEMOGLOBIN/HEMATOCRIT due on 03/17/2024 ANNUAL PCP TEAM CHRONIC DISEASE VISIT due on 05/13/2024 BP CONTROLLED (<130/80) due on 05/13/2024 DTAP,TDAP,TD(2 - Td or Tdap) due on 10/02/2026 BONE DENSITY Completed HEPATITIS C SCREENING Completed PNEUMOCOCCAL: 65+ Completed ASSESSMENT/PLAN: 1. Type 2 diabetes mellitus with hyperglycemia, with long-term current use of insulin (HCC) - ICD9:250.00, 790.29, V58.67, ICD10: E11.65, Z79.4 (primary diagnosis) - Uncontrolled - Increase Insulin detemir (Levemir) - Blood glucose monitoring on a 4 times schedule - Discussed need for and benefit of weight loss. BMI 36.25 kg/(m^2) - HEMOGLOBIN A1C (POC) - COMP METABOLIC PANEL - HGB A1C - HEMOGLOBIN A1C (POC) - INSULIN GLARGINE (U-100) 100 UNIT/ML (3 ML) SUBCUTANEOUS PEN - call in with blood sugar average in 2 weeks, sooner if getting lows 2. Coronary artery disease of [place] artery of [place] heart with stable angina pectoris (HCC) - ICD9: 414.01, 413.9, ICD10: I25.118 - follow-up with cardiology as scheduled Katie PerazalogNAPOLEON solomon.TEST ENGINE EVALUATOR Prescription instructions reviewed with patient as applicable. Patient advised if symptoms do not improve or if symptoms worsen sooner, to contact their primary care physician. Potential red flag symptoms discussed with the patient. Reviewed appropriate action plan to take if red flag symptoms occur. Patient agreeable to treatment plan. I spent a total of 25 minutes on the date of the service which included preparing to see the patient, [id number] patient care, completing clinical documentation, obtaining and/or reviewing separately obtained history, performing a medically appropriate examination, counseling and educating the pat ient/family/caregiver, and ordering medications, tests, or procedures. documented in this encounterBrecksville [facility]08-15-2023 Miscellaneous Notes* Telephone Encounter - Pat Groves LPN - 05/06/2023 1:51 PM EDT Patient has been identified by name and date of : Pharmacy phones for refill(s): Requested Prescriptions Pending Prescriptions Disp Refills insulin lispro (HUMALOG KWIKPEN INSULIN) 200 unit/mL (3 mL) injection Sig: Inject 14units with breakfast, 14 units with lunch, and 24 units with dinner Date of last office visit in primary care: 03/17/2023, has appt 05/13/2023 Last 2 Encounter Wt Readings: Date: Wt: 04/03/2023 89.8 kg (198 lb) 03/17/2023 90 kg (198 lb 6.4 oz) Previous labs/tests for medication: Diabetes: Hemoglobin A1C (%) Date Value 02/06/2023 8.0 09/27/2022 6.5 11/13/2021 6.1 12/07/2020 6.3 Hemoglobin A1C (POCT) (%) Date Value 05/25/2021 6.0 Please advise. Thank you. Pat Groves LPN documented in this encounterBrecksville [facility]23 Miscellaneous Notes* Telephone Encounter - Irene Palacios LPN - 04/28/2023 3:00 PM EDT Spoke with patient and reviewed provider's message with her. She stated she thought she had an appointment with him. After a bit of checking her calendar she stated Well I know I called him. She stated I will get on the phone again and get an appointment scheduled. Patient has 3 month follow up with Katie 05/13/23 for 40 min. * Telephone Encounter - Fernanda Reyes LPN - 04/26/2023 10:11 AM EDT Left a message for pt to call the office and ask to speak to a nurse. Fernanda Reyes LPN * Telephone Encounter - Katelyn Churchill Ma - 04/24/2023 10:01 AM EDT Tried calling patient no answer and vm was full Katelyn Churchill Ma * Telephone Encounter - Nanda Oliveira MD - 04/24/2023 9:28 AM EDT Reviewed. 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 * Telephone Encounter - Irene Palacios LPN - 04/24/2023 8:43 AM EDT Records placed on provider's desk for review. * Telephone Encounter - Nanda Oliveira MD - 04/24/2023 8:01 AM EDT Agree with ER evaluation. Please obtain records from [facility]. * Telephone Encounter - Cindi Munoz RN - 04/23/2023 4:39 PM EDT Patient reports having CP off/on since Friday- that never goes away completely. Today having chest pressure, with dizziness, nausea, sweating, SOB on 3LO2. Hx of 2 RI's w/stent. Hx: PE & DVT. Thinks she may be having a heart attack now. Protocol recommends call 911. Patient agreeable. Patient reports her son is home with her. Phoned patient to see if she was able to reach 911, patient states her sister is taking her to ER. Advised protocol recommends she call 911. Patient reports she is leaving now with her sister. Reason for Disposition [1] Chest pain lasts > 5 minutes AND [2] described as crushing, pressure-like, or heavy Answer Assessment - Initial Assessment Questions 1. LOCATION: CP off / on daily since Friday. Today having chest pressure. Doesn't go completely away. 2. RADIATION: Radiates through to back and stays in front and back. Radiates down right arm and hand, sometimes radiates up throat into jaw. 3. ONSET: Friday night. 4. PATTERN Comes and goes. Constant since Friday. Worse with activity. 5. DURATION: Has not gone away since Friday. 6. SEVERITY: The other night it was moderate. Wakes her up when sleeping. 7. CARDIAC RISK FACTORS: Hx prior heart attack, heart cath was done, one stent placed in 2003. Think she had a mild RI a long while after that. Hx: diabetes. Hx: HTN. Hx: high cholesterol. Previous smoker. Has family hx of heart disease. 8. PULMONARY RISK FACTORS: COPD- wears oxygen at 3 L. Hx blood clot in leg- left pelvis to toes, a piece broke off and caused PE back in 1987. Hx: cervical CA with radical hysterectomy- with a very aggressive CA- 1987. Hx of double pneumonia. 9. CAUSE: Doesn't know - feels like it felt when had heart attack 10. OTHER SYMPTOMS: Dizziness if turns head, a little nausea, does sweat- today scalp of hair and tips of hair was wet. SOB sometimes. No cough. 11. : No. Protocols used: Chest [id number] documented in this encounterBrecksville [facility] Miscellaneous Notes* Telephone Encounter - Samantha Dent RN - 04/23/2023 10:27 AM EDT Medication refill requested by Pharmacy Requested Prescriptions Pending Prescriptions Disp Refills ferrous sulfate 325 mg (65 mg iron) tablet 30 tablet 2 Sig: Take 1 tablet by mouth daily with breakfast. alendronate (FOSAMAX) 70 mg tablet 12 tablet 1 Sig: Take 1 tablet by mouth one time a week. Take with a full glass of water, on an empty stomach; do NOT lie down for 30minutes. busPIRone (BUSPAR) 10 mg tablet 105 tablet 1 Sig: Take one tablet in the AM, one tablet in the afternoon and 1.5 tablets in the evening Last encounter with this provider: 03/17/2023 Next appt: 05/13/2023 WBC (k/uL) Date Value 03/17/2023 8.17 Hemoglobin (g/dL) Date Value 03/17/2023 13.3 Platelet Count (k/uL) Date Value 03/17/2023 207 Glucose (mg/dL) Date Value 02/06/2023 118 (H) BUN (mg/dL) Date Value 02/06/2023 20 Creatinine (mg/dL) Date Value 02/06/2023 1.26 (H) Sodium (mmol/L) Date Value 02/06/2023 144 Potassium (mmol/L) Date Value 02/06/2023 3.9 Calcium, Total (mg/dL) Date Value 02/06/2023 9.4 Alkaline Phosphatase (U/L) Date Value 02/06/2023 65 Bilirubin, Total (mg/dL) Date Value 02/06/2023 0.8 AST (U/L) Date Value 02/06/2023 16 ALT (U/L) Date Value 02/06/2023 7 Total Cholesterol, Nonfasting (mg/dL) Date Value 09/27/2022 139 Triglycerides, Nonfasting (mg/dL) Date Value 09/27/2022 152 (H) TSH (mIU/L) Date Value 09/27/2022 3.040 Samantha Dent RN documented in this encounterBrecksville [facility]07-13-[facility] History of Present illness Narrative* Sury Mancini APRN.TEST ENGINE EVALUATOR - 04/03/2023 2:01 PM EDT Tamia Panda is a 68 year old female who presents for vaginal bumps for several year(s). She states that only use to be 2 and now there are more Vaginal discharge: none. Itching: No Dyspareunia: N/A Fever/chills: No Abdominal pain: No Bladder: incontinence Are you currently taking any medications to treat vaginitis: No Do you use feminine sprays, douches or deodorants: No Menstrual cycle: no menses - postmenopausal Past medical, surgical, social history, medications and allergies reviewed and updated. OBJECTIVE: BP 118/72 Wt 198 lb (89.8kg) GENERAL: Well developed, well nourished in no apparent distress PELVIC: external genitalia normal, normal Bartholin's glands, urethra, Zavalla's glands, no vulvar lesions, normal appearing perineal body and perianal region, very small lump felt in the majora likelyadipose tissue or cyst, there were not visual lumps ASSESSMENT/PLAN: 1. Labial cyst - ICD9: 624.8, ICD10: N90.7 Told the patient that these were very small and nothing of concern. If at any point in time she felt like they were getting larger, painful, or she was having discharge from the area to follow back up in the office. Sury Mancini APRN.CNP Medical Decision Making: Problems: Low: Acute, uncomplicated illness or injury Risk: Low: Low risk from testing/treatment Medical Decision Making Level: 3 - Low documented in this encounterBrecksville [facility]07-11-2023 Discharge summary Author James Toledo [facility] April 01, 2023 9:43am Note Date/Time April 01, 2023 9:[address] [facility] Physical [facility] [address] [place] [address]. [address] [place] [address] / REHABILITATION SERVICES DISCHARGE SUMMARY MR#: [id number] Acct: [id number] Name: TAMIA PANDA Rep #: [id number] : 1955 68 From: James Toledo DPT, OCS, CSCS Referring Dr.: Dr. Arlyn Leslie MD Status: REG RCR Insurance: [facility]MO [facility] Patient Information Patient Information: TAMIA PANDA was seen in my office for initial evaluation on 02/07/23. The following Plan of Care was established for this patient: POC Established Initial Frequency: 2x /Week Initial Duration: 4-6 Weeks Anticipated Interventions Patient/Client Instruction: Educate patient on: Condition and Plan of Care For the Purpose of:: To decrease pain, To increase ROM, To improve muscle performance and motor function and To increase tolerance to activity/condition/position Therapeutic Exercise to Include: Strength training, Postural training, Flexibilty training, Gait and locomotor training, Passive ROM and Active ROM For the Purpose of:: To improve muscle performance and motor function, To increase tolerance to activity/condition/position, To improve ability of physical actions for home/community/work/leisure and To improve gait and locomotor functions Last Seen Last Seen: This patient was last seen in our office 02/07/23. Pertinent comments regardingtheir Physical therapy will appear below: Pt seen for IE and then cancelled and no showed the next couple visits and not rescheduled. At this point, it has been over 6 weeks and I will discontinue from my care. At this point I will be discontinuing this patient from physical therapy. I would be happy to see this patient again in the future if found appropriate by the physician. Thank you! James Toledo, ALEXANDREA, OCS, CSCS Balance/Gait/Functional tests Balance/Special Test Scores Lower Extremity Functional Score: 10 TUG Test Time Seconds: 50 30 Second Chair Rise Test Seconds: 2 <Electronically signed by James Toledo DPT, OCS, CSCS> 04/01/23 0943 CC: Dr. Bhupendra Oliveira MD; Dr. Arlyn Leslie MD ~ [facility] Signed [facility] Work Phone: [phone]) 372-229507-03-2023 Instructions* Patient Instructions* Demetria Cifuentes - 03/24/2023 3:05 PM EDT Continue with lotrisone daily documented in this encounterBrecksville [facility]07-03-[facility]23 History of Present illness Narrative* Demetria Cifuentes - 03/24/2023 2:57 PM EDT Images from the original note were not included. FOLLOW UP PODIATRIC OFFICE VISIT Chief Complaint: This 68 year old who presents for follow up:athlete's foot of left lower extremity. Patient presents to clinic for followup left foot dermatitis/athlete's foot. Patient has the lotrisone but is only applying once or twice a week. She states she is unable to bend her knee to get the cream on. She continues to complain of burning to her feet. PAIN EVALUATION 03/24/2023 1431 Pain Level: 10 Pain Location: Other: See Comment bilateral feet Description: Burning Duration Units: Years Frequency: Continuous Intervention/Comfort measure: Relaxation;Reposition Hemoglobin A1C Date Value Ref Range Status 02/06/2023 8.0 (H) 4.3 - 5.6 % Final Comment: [employer] guidelines indicate that patients with HgbA1c in the range 5.7-6.4% are at increased risk for development of diabetes, and intervention by lifestyle modification may be beneficial. HgbA1c greater or equal to 6.5% is considered diagnostic of diabetes. PCP: Nanda Oliveira MD PAST MEDICAL HISTORY Diagnosis Date Acute chronic obstructive pulmonary disease with respiratory failure AF (paroxysmal atrial fibrillation) ([facility]) Anxiety Arthritis Seeing Dr Elliott Cervical cancer ([facility]) hysterectomy CHF (congestive heart failure) ([facility]) Dr. Ramsey Chronic back pain Seeing Dr. Wallace Chronic respiratory failure with hypercapnia ([facility]) 10/06/2018 [facility], 09/09/2018: 7.38/54.7/77/32.6 on 30% O2. CKD (chronic kidney disease), stage III ([facility]) Constipation Coronary atherosclerosis of [place] coronary artery Cyst of left kidney repeat US 10/2020 DDD (degenerative disc disease), lumbar DM type 2 (diabetes mellitus, type 2) ([facility]) Dr. Lopez for podiatry DVT (deep venous thrombosis) ([facility]) Post op INA, BSO. Dysphagia Seeing Dr. Beaulieu Emphysema lung ([facility]) Essential hypertension Femur fracture, left ([facility]) 07/2022 s/p nail Functional dyspepsia Gastroparesis 2017 mild GERD without esophagitis Gout Headache History of colon polyps 11/28/2016 Hyperlipidemia Hyperuricemia Hypothyroidism Incontinence Seeing Dr. Chapman Lung nodule 02/[address] in 3 months Morbid obesity (HCC) Muscle weakness Nausea Obesity hypoventilation syndrome (HCC) on 2-3 L oxygen continuously PARESH on CPAP [facility] for BiPAP and [facility] for O2. PE (pulmonary thromboembolism) ([facility]) Post op INA/BSO. Pneumonia Pulmonary HTN (HCC) Renal cyst repeat US 10/2020 RLS (restless legs syndrome) Shortness of breath Sleep apnea using oxygen currently, not on CPAP Unsteadiness on feet Vitamin D deficiency Wheezing Current Outpatient Medications Medication Sig Cholecalciferol, Vitamin D3, (VITAMIN D-3) 50 mcg (2,000 unit) cap Take 1 capsule by mouth once daily. apixaban (ELIQUIS) 2.5 mg tab(s) Take 1 tablet by mouth twice daily. nystatin (MYCOSTATIN) powder Apply 1 application to affected area three times daily. albuterol HFA (PROAIR HFA) 90 mcg/actuation inhaler Inhale 2 Puffs as instructed every 4 hours as needed for wheezing/shortness of breath. blood sugar diagnostic (BLOOD GLUCOSE TEST) test strip Test blood sugar(s) 4 times daily. Dx: Type 2 DM - Uncontrolled E11.65 Insulin: Yes insulin glargine (LANTUS SOLOSTAR U-100 INSULIN) 100 unit/mL (3 mL) Inject 54 units subcutaneously twice daily Lancets lancets Test blood sugar(s) 4 times daily. Dx: Type 2 DM - Uncontrolled E11.65 Insulin: Yes cycloSPORINE (CEQUA) 0.09 % dropperette Use 1 Drop in both eyes every 12 hours. insulin lispro (HUMALOG KWIKPEN INSULIN) 200 unit/mL (3 mL) injection Inject 14units with breakfast, 14 units with lunch, and 24 units with dinner atorvastatin (LIPITOR) 40 mg tablet Take 1 tablet by mouth once daily. busPIRone (BUSPAR) 10 mg tablet Take one tablet in the AM, one tablet in the afternoon and 1.5 tablets in the evening DULoxetine (CYMBALTA) 60 mg capsule Take 1 capsule by mouth once daily. levothyroxine (SYNTHROID) 100 mcg tablet Take 1 tablet by mouth every morning. furosemide (LASIX) 20 mg tablet Take 1 tablet by mouth twice daily. fexofenadine (ALLEN ALLERGY) 180 mg tablet Take 1 tablet by mouth once daily. ascorbic acid, vitamin C, (VITAMIN C) 500 mg tablet Take 1 tablet by mouth once daily. Incontinence Pad, Liner, Disp (BLADDER CONTROL PADS EX ABSORB) pads 1 Device as needed. ferrous sulfate 325 mg (65 mg iron) tablet Take 1 tablet by mouth daily with breakfast. aspirin, enteric coated (ASPIRIN, ENTERIC COATED) 81 mg EC tablet Take 1 tablet by mouth every morning. omeprazole (PRILOSEC) 40 mg capsule Take 1 capsule by mouth once daily. allopurinol (ZYLOPRIM) 100 mg tablet Take 1 tablet by mouth once daily. For gout. potassium chloride (K-TAB) 10 mEq tablet Take 1 tablet by mouth daily with breakfast. alendronate (FOSAMAX) 70 mg tablet Take 1 tablet by mouth one time a week. Take with a full glass of water, on an empty stomach; do NOT lie down for 30minutes. oxyCODONE IR (ROXICODONE) 5 mg immediate release tablet Take by mouth every 8 hours as needed for pain. blood sugar diagnostic (BLOOD GLUCOSE TEST) test strip Test blood sugar(s) up to 4 times daily. Dx:Type 2 DM - Uncontrolled E11.65 Insulin: Yes Freestyle Kira compatible test strips insulin needles, DISPOSABLE, (ULTICARE PEN NEEDLE) 31 gauge x 5/16 USE DIRECTED. TO INJECT INSULINS cyclobenzaprine (FLEXERIL) 10 mg tablet Take 1 tablet by mouth twice daily as needed for muscle spasm. BIPAP Bilevel PAP 16/12 cmH2O with 2 LPM oxygen bleed in, mask, tubing, filters, heated humidity, lifetime supplies. Dx: G47.33, G47.39. metoprolol tartrate, short acting, (LOPRESSOR) 50 mg tablet Take 1.5 tablets by mouth twice daily. lidocaine (XYLOCAINE) 5 % ointment Apply to affected area as needed. use a small amount to affectedarea qid prn pain alcohol swabs UAD to clean skin before testing blood sugar and injecting insulins. Facial Mask misc 1 Device once daily. Oxygen mask to be worn daily for history of hypoxia. nitroglycerin sublingual (NITROQUICK) 0.4 mg SL tablet DISSOLVE 1 TAB UNDER THE TONGUE NEEDED FOR CHEST PAIN EVERY 5 MINUTES UP TO 3 TIMES. IF NO RELIEF CALL 911. isosorbide mononitrate ER (IMDUR) 120 mg 24 hr tablet TAKE 1 TABLETS BY MOUTH EVERY MORNING - (120mg daily) COMPOUNDED PRESCRIPTION Pulse oximetry to be used PRN for SOB for COPD DX:J96.12 fluorometholone (FML LIQUID FILM) 0.1 % ophthalmic suspension 1 Drop every 4 hours. flash glucose scanning reader (ElixrSTYLE KIRA 14 DAY READER) misc Use to check blood sugars 4-5 times per day Dx: Type 2 diabetes mellitus treated with insulin E11.9 flash glucose sensor (FREESTYLE KIRA 14 DAY SENSOR) kit Use to check blood sugars 4-5 times per day. Dx: Type 2 diabetes mellitus treated with insulin E11.9 glucose 4 gram chewable tablet TAKE 4 TABLETS BY MOUTH NEEDED FOR LOW BLOOD SUGAR. COMPOUNDED PRESCRIPTION Please fit for BiPAP mask. COMPOUNDED PRESCRIPTION OCD Titration for portable oxygen concentrator Oxygen Flow Rate between 2-6liters. To keep oxygen saturation at or above 92%. OXYGEN, HOME THERAPY, Inhale 3 L/min as instructed as directed. COMPOUNDED PRESCRIPTION Evaluation for diabetic shoes and inserts Dx: E11.65, Z79.4 Incontinence Pad, Liner, Disp pads 1 Device as needed (urinary incontinence). Prevail incontinence pads. Dx: urinary incontinence. Size: small Blood-Glucose Meter (ONETOUCH ULTRA2) monitoring kit UAD to test blood sugar No current facility-administered medications for this visit. ALLERGIES Allergen Reactions Adhesive Tape (Adrienne* Intolerance Surgical tape leaves rash Irritates skin badly and blisters along with medical tape Cats Other: See Comments Congested and itchy, difficulty breathing Dogs Other: See Comments Congestion, sneezing, and difficulty breathing Orphenadrine Unknown Capsaicin Itching Ciprofloxacin Other: See Comments Red, hot, itchy rash Keflex [Cephalexin] Hives Negative skin testing and [...] after 30 minutes, proceed with regular dosing. Niacin Unknown Pt states its niacin its niaspan Reglan [Metoclopram* Other: See Comments Unable to sleep Xanthines Unknown Zofran [Ondansetron* Itching PAST SURGICAL HISTORY Procedure Laterality Date CC PCI CORONARY INTERVENT 2003 CHOLECYSTECTOMY COLONOSCOPY Has had multiple in the past with polyps, cannot remember dates COLSC FLX W/RMVL OF TUMOR POLYP LESION SNARE TQ 11/28/2016 Repeat 2019 EGD TRANSORAL BIOPSY SINGLE/MULTIPLE 11/28/2016 HERNIA REPAIR HX multiple KNEE SURGERY HX Left x3 for torn cartilage NASAL SURGERY PROCEDURE sinus PAST SURGICAL HISTORY OF 01/30/2018 endoscopic per-oral pyloromyotomy PAST SURGICAL HISTORY OF Left 07/2022 cephalomedullary nail femur after fall with fracture TOTAL ABDOM HYSTERECTOMY 1987 Cervical cancer TUBAL LIGATION HX WRIST SURGERY HX Right ganglion cyst removal x2 Physical Exam: OBJECTIVE: Constitutional: Pt is a well developed 68 year old female who is alert, oriented, cooperative and in no apparent distress. Eyes: Following during examination. No redness or drainage. Respiratory: RR normal and nonlabored. Even breathing. No evidence of distress. Psychology: Patient is engaged during conversation. Normal affect and mood. Does not appear depressed or anxious. NVSI unchanged from previous visit. Dermatological: Nails 1-5 b/l are normal in length but yellow discolored. There is redness and dryness in moccasin distribution to left lower extremity. No open sores noted. Webspaces clean and dry 1-4 b/l. Skin appears well hydrated and supple. good color, texture, turgor. No open lesions present. No callosities present. Musculoskeletal/Orthopaedic: Patient has no pain to palpation of b/l feet ASSESSMENT: (B35.3) Tinea pedis of left foot (primary encounter diagnosis) (L30.9) Dermatitis PLAN: Discussed dryness of left foot. I still suspect component of athlete's foot vs dermatitis. She has only been applying the lotion to her foot maybe once or twice per week. Would recommend she do more frequently. Would be ideal if she could do twice daily but if she can only do once, that is fine. No ulceration on exam Her nails are normal length. Can follow-up periodically for nail debridement Demetria Cifuentes DPM * Maureen Grant RN - 03/24/2023 2:22 PM EDT AMB ROOMING INTAKE FLOWSHEET DATA Pain Pain Level: 10 Pain Location: Other: See Comment (bilateral feet) Description: Burning Duration Units: Years Frequency: Continuous Intervention/Comfort measure: Relaxation, Reposition Patient presents with: Left Foot - Established Patient, Follow Up, Diabetic Foot Check Right Foot - Established Patient, Follow Up, Diabetic Foot Check Patient presents for follow up of tinea pedis and blister to left hallux. No blister noted at this time. Redness noted to all toes of both feet. Patient states that she has a constant burning pain tofeet. documented in this encounterBrecksville [facility]06-29-2023 Miscellaneous Notes* Telephone Encounter - Trinidad Garcia RN - 03/20/2023 1:55 PM EDT Patient has been identified by name and date of : Yes, Provider Date Time Pharmacy phones for refill(s): Requested Prescriptions Pending Prescriptions Disp Refills Cholecalciferol, Vitamin D3, (VITAMIN D-3) 50 mcg (2,000 unit) cap 90 capsule 1 Sig: Take 1 capsule by mouth once daily. apixaban (ELIQUIS) 2.5 mg tab(s) 60 tablet 2 Sig: Take 1 tablet by mouth twice daily. nystatin (MYCOSTATIN) powder 60 g 2 Sig: Apply 1 application to affected area three times daily. albuterol HFA (PROAIR HFA) 90 mcg/actuation inhaler 18 g 2 Sig: Inhale 2 Puffs as instructed every 4 hours as needed for wheezing/shortness of breath. Date of last office visit with pcp: 03/17/23 Date of last office visit in primary care: Last 2 Encounter Wt Readings: Date: Wt: 03/17/2023 90 kg (198 lb 6.4 oz) 01/09/2023 86 kg (189 lb 9.6 oz) Previous labs/tests for medication: Not applicable Please advise. Thank you. Trinidad Garcia RN documented in this encounterBrecksville [facility]06-28-2023 Miscellaneous Notes* Telephone Encounter - Pao Zaragoza MA - 03/19/2023 4:41 PM EDT TC to patient to notify of results. Patient states she has not completed stool test. Contacted client lab services they will look into. Reports a SERS event as well 03/19/23 at 5 PM. Pao Zaragoza MA * Telephone Encounter - Pao Zaragoza MA - 03/19/2023 4:38 PM EDT ----- Message from Nanda Oliveira MD sent at 03/19/2023 8:35 AM EDT ----- FOBT negative for blood in stool. Repeat in 1 year to screen for colon cancer. documented in this encounterBrecksville [facility]06-27-2023 Miscellaneous Notes* Telephone Encounter - SRIRAM Centeno - 03/18/2023 12:15 PM EDT TC to patient who verbalized understanding of providers message with no questions at this time. SRIRAM Centeno * Telephone Encounter - SRIRAM Centeno - 03/18/2023 12:13 PM EDT ----- Message from Nanda Oliveira MD sent at 03/18/2023 8:08 AM EDT ----- Normal labs. No change to regimen. documented in this encounterBrecksville [facility]06-26-2023 Miscellaneous Notes* Telephone Encounter - Ireen Palacios LPN - 03/17/2023 4:57 PM EDT Will go ahead and forward the information to [email or web address] as patient requests. * Telephone Encounter - Purnima Donovan RN - 03/17/2023 4:42 PM EDT Patient calls and states that she never heard back from [employer] in regards to insurance. Patient states that usually gets DME from [email or web address]. Patient is unsure where [employer] is. Patient states that she was given this name from someone. Purnima Donovan RN documented in this encounterBrecksville [facility]06-26-2023 Instructions* Patient Instructions* Nanda Oliveira MD - 03/17/2023 3:17 PM EDT Call in 2 weeks with updated sugar readings. Call sooner with low sugars less than 80. documented in this encounterBrecksville [facility]06-26-2023 History of Present illness Narrative* Nanda Oliveira MD - 03/17/2023 2:58 PM EDT Chief Complaint Patient presents with: Follow Up HPI Tamia Panda is a 68 year old female who presents here today for 2 week follow up. Previous HPI: DIABETES MELLITUS: Ms. Panda was last seen 4 months ago. Since our last visit she denies excessive thirst, numbness, tingling or pain in extremities, new or unusual visual symptoms. Admits to polyuriaand hypoglycemia around noon. Follows a diabetic diet most of the time, generally not very much. Does not eat much for breakfast. She is compliant with medication(s) and is tolerating med(s) without any side effects. She reports checking her glucose on a four times a day schedule with sugars in thefasting 200-250 range. 14 day average 211 overall with 12am to 6am: 267, 6-12: 217, 12-6pm: 153, 6pm-12am: 201. Patient's last HgA1C was Hemoglobin A1C (%) Date Value 02/06/2023 8.0 09/27/2022 6.5 11/13/2021 6.1 12/07/2020 6.3 Hemoglobin A1C (POCT) (%) Date Value 05/25/2021 6.0 ) Last Ophthalmology exam was within the past 12 months Last Podiatry exam was within the past 12 months Patient needing additional information for her to get a wheelchair through [facility]. Patient has limited mobility 2/2 DDD lumbar spine and chronic back pain, chronic hypoxia with need for oxygen. Right now, patient has been getting around her home with a walker. States that using a wheelchair would help her use the restroom and daily ADLs. Feels like she would be able to propel wheelchairon her own. Patient states that she fell 2 days ago onto her knees and then hit the right side of her head. Didnot have LOC. Needed help to get up on her own. Admits to chronic headache. Denies vision, slurred speech, facial droop. Did not go to the ED after her fall. Is on anticoagluation with Eliquis. Able to walk after her fall with pain in her knees. Admits knees chronically giving out on her. Denies locking up, catching. Interim: Xrays of her knees were negative for fracture. Patient did not complete CT brain for head injury. Patient has not had any falls since last OV. Still has not gotten her wheelchair. At home, she is using her walker for ambulation. Patient has changed insulin dosages as recommended and brought in her Freestyle Kira. Has had a couple of low sugars a couple of days ago, but did not do fingerstick to recheck. States that she wokeup late that day and did not eat much for breakfast. Average sugar over the last 2 weeks: 208. 12amto 6am: 234, 6-12: 213, 12-6pm: 150 6pm-12am: 226. Patient had high sugar over 400 this morning which quickly improved to 200's. States she ate tater tots and pizza rolls last night. Patient getting meals prepared by her son and 14 moms meals every 2 weeks. BP in good range on current regimen. Notes petechial rash on forearms without other bleeding or bruising symptoms. Past medical history, appointments, medications, allergies reviewed. Previous Medical History PAST MEDICAL HISTORY Diagnosis Date Acute chronic obstructive pulmonary disease with respiratory failure AF (paroxysmal atrial fibrillation) (HCC) Anxiety Arthritis Seeing Dr Elliott Cervical cancer (HCC) hysterectomy CHF (congestive heart failure) (HCC) Dr. Ramsey Chronic back pain Seeing Dr. Wallace Chronic respiratory failure with hypercapnia (HCC) 10/06/2018 [facility], 09/09/2018: 7.38/54.7/77/32.6 on 30% O2. CKD (chronic kidney disease), stage III (HCC) Constipation Coronary atherosclerosis of [place] coronary artery Cyst of left kidney repeat US 10/2020 DDD (degenerative disc disease), lumbar DM type 2 (diabetes mellitus, type 2) (HCC) Dr. Lpoez for podiatry DVT (deep venous thrombosis) ([facility]) Post op INA, BSO. Dysphagia Seeing Dr. Beaulieu Emphysema lung ([facility]) Essential hypertension Femur fracture, left ([facility]) 07/2022 s/p nail Functional dyspepsia Gastroparesis 2016 mild GERD without esophagitis Gout Headache History of colon polyps 11/28/2016 Hyperlipidemia Hyperuricemia Hypothyroidism Incontinence Seeing Dr. Chapman Lung nodule 02/[address] in 3 months Morbid obesity (HCC) Muscle weakness Nausea Obesity hypoventilation syndrome (HCC) on 2-3 L oxygen continuously PARESH on CPAP [facility] for BiPAP and [facility] for O2. PE (pulmonary thromboembolism) (HCC) Post op INA/BSO. Pneumonia Pulmonary HTN (HCC) Renal cyst repeat US 10/2020 RLS (restless legs syndrome) Shortness of breath Sleep apnea using oxygen currently, not on CPAP Unsteadiness on feet Vitamin D deficiency Wheezing Previous Surgical History PAST SURGICAL HISTORY Procedure Laterality Date CC PCI CORONARY INTERVENT 2004 CHOLECYSTECTOMY COLONOSCOPY Has had multiple in the past with polyps, cannot remember dates COLSC FLX W/RMVL OF TUMOR POLYP LESION SNARE TQ 11/28/2016 Repeat 2019 EGD TRANSORAL BIOPSY SINGLE/MULTIPLE 11/28/2016 HERNIA REPAIR HX multiple KNEE SURGERY HX Left x3 for torn cartilage NASAL SURGERY PROCEDURE sinus PAST SURGICAL HISTORY OF 01/30/2018 endoscopic per-oral pyloromyotomy PAST SURGICAL HISTORY OF Left 07/2022 cephalomedullary nail femur after fall with fracture TOTAL ABDOM HYSTERECTOMY 1988 Cervical cancer TUBAL LIGATION HX WRIST SURGERY HX Right ganglion cyst removal x2 Family History FAMILY HISTORY Problem Relation Age of Onset Coronary Artery Disease Mother Coronary Artery Disease Father Asthma Brother Coronary Artery Disease Brother Diabetes Sister Hypertension Sister Diabetes Sister Heart Sister Allergies Sister Asthma Sister Allergies Sister Emphysema Sister Early stages COPD Paternal Uncle Patient Allergies ALLERGIES Allergen Reactions Adhesive Tape (Adrienne* Intolerance Surgical tape leaves rash Irritates skin badly and blisters along with medical tape Cats Other: See Comments Congested and itchy, difficulty breathing Dogs Other: See Comments Congestion, sneezing, and difficulty breathing Orphenadrine Unknown Capsaicin Itching Ciprofloxacin Other: See Comments Red, hot, itchy rash Keflex [Cephalexin] Hives Negative skin testing and [...] after 30 minutes, proceed with regular dosing. Niacin Unknown Pt states its niacin its niaspan Reglan [Metoclopram* Other: See Comments Unable to sleep Xanthines Unknown Zofran [Ondansetron* Itching Current Medications Current Outpatient Medications on File Prior to Visit Medication Sig cycloSPORINE (CEQUA) 0.09 % dropperette Use 1 Drop in both eyes every 12 hours. insulin glargine (LANTUS SOLOSTAR U-100 INSULIN) 100 unit/mL (3 mL) Inject 48 units subcutaneously twice daily insulin lispro (HUMALOG KWIKPEN INSULIN) 200 unit/mL (3 mL) injection Inject 14units with breakfast, 14 units with lunch, and 24 units with dinner atorvastatin (LIPITOR) 40 mg tablet Take 1 tablet by mouth once daily. busPIRone (BUSPAR) 10 mg tablet Take one tablet in the AM, one tablet in the afternoon and 1.5 tablets in the evening DULoxetine (CYMBALTA) 60 mg capsule Take 1 capsule by mouth once daily. levothyroxine (SYNTHROID) 100 mcg tablet Take 1 tablet by mouth every morning. furosemide (LASIX) 20 mg tablet Take 1 tablet by mouth twice daily. fexofenadine (ALLEN ALLERGY) 180 mg tablet Take 1 tablet by mouth once daily. ascorbic acid, vitamin C, (VITAMIN C) 500 mg tablet Take 1 tablet by mouth once daily. Incontinence Pad, Liner, Disp (BLADDER CONTROL PADS EX ABSORB) pads 1 Device as needed. ferrous sulfate 325 mg (65 mg iron) tablet Take 1 tablet by mouth daily with breakfast. aspirin, enteric coated (ASPIRIN, ENTERIC COATED) 81 mg EC tablet Take 1 tablet by mouth every morning. omeprazole (PRILOSEC) 40 mg capsule Take 1 capsule by mouth once daily. allopurinol (ZYLOPRIM) 100 mg tablet Take 1 tablet by mouth once daily. For gout. albuterol HFA (PROAIR HFA) 90 mcg/actuation inhaler Inhale 2 Puffs as instructed every 4 hours as needed for wheezing/shortness of breath. apixaban (ELIQUIS) 2.5 mg tab(s) Take 1 tablet by mouth twice daily. nystatin (MYCOSTATIN) powder Apply 1 application to affected area three times daily. potassium chloride (K-TAB) 10 mEq tablet Take 1 tablet by mouth daily with breakfast. alendronate (FOSAMAX) 70 mg tablet Take 1 tablet by mouth one time a week. Take with a full glass of water, on an empty stomach; do NOT lie down for 30minutes. Cholecalciferol, Vitamin D3, (VITAMIN D-3) 50 mcg (2,000 unit) cap Take 1 capsule by mouth once daily. oxyCODONE IR (ROXICODONE) 5 mg immediate release tablet Take by mouth every 8 hours as needed for pain. blood sugar diagnostic (BLOOD GLUCOSE TEST) test strip Test blood sugar(s) up to 4 times daily. Dx:Type 2 DM - Uncontrolled E11.65 Insulin: Yes Freestyle Kira compatible test strips insulin needles, DISPOSABLE, (ULTICARE PEN NEEDLE) 31 gauge x 5/16 USE DIRECTED. TO INJECT INSULINS cyclobenzaprine (FLEXERIL) 10 mg tablet Take 1 tablet by mouth twice daily as needed for muscle spasm. BIPAP Bilevel PAP 16/12 cmH2O with 2 LPM oxygen bleed in, mask, tubing, filters, heated humidity, lifetime supplies. Dx: G47.33, G47.39. lidocaine (XYLOCAINE) 5 % ointment Apply to affected area as needed. use a small amount to affectedarea qid prn pain alcohol swabs UAD to clean skin before testing blood sugar and injecting insulins. Facial Mask misc 1 Device once daily. Oxygen mask to be worn daily for history of hypoxia. nitroglycerin sublingual (NITROQUICK) 0.4 mg SL tablet DISSOLVE 1 TAB UNDER THE TONGUE NEEDED FOR CHEST PAIN EVERY 5 MINUTES UP TO 3 TIMES. IF NO RELIEF CALL 911. isosorbide mononitrate ER (IMDUR) 120 mg 24 hr tablet TAKE 1 TABLETS BY MOUTH EVERY MORNING - (120mg daily) COMPOUNDED PRESCRIPTION Pulse oximetry to be used PRN for SOB for COPD DX:J96.12 lancets ([employer] DELDreampod LANCETS) 30 gauge misc USE TO CHECK BLOOD SUGAR 4-5 TIMES DAILY, E11.9 fluorometholone (FML LIQUID FILM) 0.1 % ophthalmic suspension 1 Drop every 4 hours. flash glucose scanning reader (ElixrSTYLE KIRA 14 DAY READER) [facility] Use to check blood sugars 4-5 times per day Dx: Type 2 diabetes mellitus treated with insulin E11.9 flash glucose sensor (ElixrSTYLE KIRA 14 DAY SENSOR) kit Use to check blood sugars 4-5 times per day. Dx: Type 2 diabetes mellitus treated with insulin E11.9 glucose 4 gram chewable tablet TAKE 4 TABLETS BY MOUTH NEEDED FOR LOW BLOOD SUGAR. COMPOUNDED PRESCRIPTION Please fit for BiPAP mask. COMPOUNDED PRESCRIPTION OCD Titration for portable oxygen concentrator Oxygen Flow Rate between 2-6liters. To keep oxygen saturation at or above 92%. OXYGEN, HOME THERAPY, Inhale 3 L/min as instructed as directed. COMPOUNDED PRESCRIPTION Evaluation for diabetic shoes and inserts Dx: E11.65, Z79.4 Incontinence Pad, Liner, Disp pads 1 Device as needed (urinary incontinence). Prevail incontinence pads. Dx: urinary incontinence. Size: small Blood-Glucose Meter (In[employer] DesignsUCH ULTRA2) monitoring kit UAD to test blood sugar metoprolol tartrate, short acting, (LOPRESSOR) 50 mg tablet Take 1.5 tablets by mouth twice daily. No current facility-administered medications on file prior to visit. Social History Social History Tobacco Use Smoking status: Former Packs/day: 1.00 Years: 28.00 Pack years: 28.00 Types: Cigarettes Start date: 1978 Quit date: 09/22/2005 Years since quittin.4 Smokeless tobacco: Never Tobacco comments: Father smoked in childhood. 2nd spouse smoked in home. Substance Use Topics Alcohol use: No Drug use: No Review of Symptoms REVIEW OF SYSTEMS GENERAL: No weight loss, malaise or fevers RESPIRATORY: Negative for cough, hemoptysis, wheezing, COPD, dyspnea or shortness of breath CARDIOVASCULAR: Negative for chest pain, leg swelling, hypertension, CHF or palpitations GI: No nausea, vomiting, or diarrhea SKIN: Negative for lesions, rash, and itching EXAM: BP 118/66 Pulse 76 Resp 16 Wt 90 kg (198 lb 6.4 oz) SpO2 96% BMI 36.29 kg/m General Appearance: Well appearing, alert, in no acute distress, well-hydrated, well nourished. Skin: petechial rash on forearms bilaterally. Lungs: Lungs clear to auscultation. No wheezing, rhonchi, rales.. Heart: RRR without murmur, gallop, or rubs. No ectopy. Abdomen: Normal abdominal exam, Abdomen soft, non-tender. Bowel sounds normal. No masses, organomegaly. Extremities: No deformities, edema, skin discoloration, clubbing or cyanosis. Good capillary refill. . Health Maintenance List COLORECTAL CANCER SCREENING due on 11/29/2021 MAMMOGRAM due on 12/28/2021 DILATED RETINAL EXAM due on 04/02/2022 ADVANCE DIRECTIVE DISCUSSION Never done URINE ALBUMIN:CREATININE RATIO due on 03/01/2023 DIABETIC FOOT EXAM due on 03/01/2023 SHINGRIX VACCINE(2 of 3) due on 02/07/2024 HBA1C due on 05/09/2023 LDL CHOLESTEROL due on 09/27/2023 SERUM CREATININE due on 02/07/2024 HEMOGLOBIN/HEMATOCRIT due on 02/07/2024 ANNUAL PCP TEAM CHRONIC DISEASE VISIT due on 02/29/2024 BP CONTROLLED (<130/80) due on 02/29/2024 DTAP,TDAP,TD(2 - Td or Tdap) due on 10/02/2026 BONE DENSITY Completed INFLUENZA Completed HEPATITIS C SCREENING Completed COVID-19 VACCINE Completed PNEUMOCOCCAL: 65+ Completed Data reviewed Component Latest Ref Rng & Units 02/06/2023 WBC 3.70 - 11.00 k/uL 8.48 RBC 3.90 - 5.20 m/uL 4.09 Hemoglobin 11.5 - 15.5 g/dL 12.8 Hematocrit 36.0 - 46.0 % 41.3 MCV 80.0 - 100.0 fL 101.0 (H) MCH 26.0 - 34.0 pg 31.3 MCHC 30.5 - 36.0 g/dL 31.0 RDW-CV 11.5 - 15.0 % 14.8 Platelet Count 150 - 400 k/uL 201 MPV 9.0 - 12.7 fL 11.4 Neut% % 70.2 Abs Neut (ANC) 1.45 - 7.50 k/uL 5.96 Lymph% % 15.8 Abs Lymph 1.00 - 4.00 k/uL 1.34 Winn% % 9.9 Abs Winn <0.87 k/uL 0.84 Eosin% % 3.2 Abs Eosin <0.46 k/uL 0.27 Baso% % 0.4 Abs Baso <0.11 k/uL 0.03 Immature Gran % % 0.5 IMMATURE GRANS (ABS) <0.10 k/uL 0.04 NRBC /100 WBC 0.0 Absolute nRBC <0.01 k/uL <0.01 DTYPE Auto Protein, Total 6.3 - 8.0 g/dL 7.0 Albumin 3.9 - 4.9 g/dL 3.6 (L) Calcium 8.5 - 10.2 mg/dL 9.4 Bilirubin, Total 0.2 - 1.3 mg/dL 0.8 Alkaline Phosphatase 34 - 123 U/L 65 AST 13 - 35 U/L 16 ALT 7 - 38 U/L 7 Glucose 74 - 99 mg/dL 118 (H) BUN 7 - 21 mg/dL 20 Creatinine 0.58 - 0.96 mg/dL 1.26 (H) Sodium 136 - 144 mmol/L 144 Potassium 3.7 - 5.1 mmol/L 3.9 Chloride 97 - 105 mmol/L 104 CO2 22 - 30 mmol/L 22 Anion Gap 9 - 18 mmol/L 18 eGFR >=60 mL/min/1.73m 47 (L) Hemoglobin A1C 4.3 - 5.6 % 8.0 (H) Estimated Average Glucose mg/dL 183 ASSESSMENT/PLAN: 1. Type 2 diabetes mellitus with diabetic neuropathy, with long-term current use of insulin (HCC) -ICD9: 250.60, 357.2, V58.67, ICD10: E11.40, Z79.4 (primary diagnosis) - Uncontrolled - Increase Lantus to 54 units BID - Blood glucose monitoring on a four times daily schedule - Counseled on healthy diet and regular exercise - Discussed need for and benefit of weight loss. BMI 36.29 kg/(m^2) - Discussed diabetic education issues of diabetes complications and monitoring required, hypoglycemic/hyperglycemic symptoms, and medication-specific side effects and monitoring - Call in 2 weeks with updated results or sooner with hypoglycemia. - Follow up in 2 months, sooner should any other issues arise. - INSULIN GLARGINE (U-100) 100 UNIT/ML (3 ML) SUBCUTANEOUS PEN - LANCETS 2. Fall in home, initial encounter - ICD9: E888.9, E849.0, ICD10: W19.XXXA, Y92.009 No recurrent falls. Will fax our last note to try to get her her wheelchair. Continue to use walkerwith ambulation. 3. Injury of head, initial encounter - ICD9: 959.01, ICD10: S09.90XA No signs of stroke or hemorrhage after fall. Did not complete CT. Would not recommend she get this done this far out. 4. Essential hypertension - ICD9: 401.9, ICD10: I10 - Controlled - Continue current medications - Recommend home blood pressure monitoring, to bring results to next visit - Encouraged sodium restriction, DASH or Mediterranean diet - Recommend regular aerobic exercise 5. Petechiae - ICD9: 782.7, ICD10: R23.3 Recheck CBC to evaluate for thrombocytopenia. - CBC + DIFF Nanda Oliveira MD [facility] History of Present illness Narrative* Mackenzie Lopez, RT(R) - 02/28/2023 12:40 PM EDT Radiology Service Progress Note PATIENT NAME: Tamia Panda DATE OF SERVICE: February 28, 2023 TIME: 12:55 PM PATIENT IDENTITY VERIFICATION COMPLETED USING TWO (2) IDENTIFIERS: Name and Date of confirmedby patient verbally. FALL SCREENING: Has the patient had 2 falls in the last year or 1 fall with injury or currently using an Ambulatory Assistive Device (Walker, Cane, Wheelchair, Crutches, etc.)? Yes, Patient High Riskfor Falls What interventions were put in place to prevent falls during this visit? Offered Assistance with Transfers/Clothing and did non wt. bearin PATIENT GENDER DATA: Female. status: : No status: NO. PATIENT RELEVANT IMPLANT DATA REVIEWED: Not Applicable RADIOLOGY DEPARTMENT: General X-ray: Exam(s) Completed: Lower Extremity X- Ray(s): Knee, AP / Lat / Tunne / Merchant Bilateral PERIPHERAL IV DATA: Not applicable SIGNED BY: RT Kamran(R) February 28, 2023 12:55 PM documented in this encounterB[facility] Instructions* Patient Instructions* Demetria Cifuentes - 01/30/2023 1:57 PM EDT Apply steroid/antifungal cream to rash of left foot Apply small amount of topical antibiotic to small 3 mm sore of left great toe. Secure with tubigrip F/u in 3 weeks Demetria Cifuentes DPM documented in this encounterB[facility] History of Present illness Narrative* Demetria Cifuentes - 01/30/2023 1:47 PM EDT Images from the original note were not included. FOLLOW UP PODIATRIC OFFICE VISIT Chief Complaint: This 68 year old who presents for follow up:blister of left foot Patient presents to clinic for follow-up left foot. She is currently applying steroid cream to the left foot and the blister has improved. She denies any redness or drainage. She feels well. PAIN EVALUATION 01/30/2023 1336 Pain Level: 8 Pain Location: Toe Description: Burning Duration Amount of Time: -- several weeks Duration Units: Weeks Frequency: Intermittent Intervention/Comfort measure: Reposition;Relaxation Hemoglobin A1C Date Value Ref Range Status 09/27/2022 6.5 (H) 4.3 - 5.6 % Final Comment: [employer] guidelines indicate that patients with HgbA1c in the range 5.7-6.4% are at increased risk for development of diabetes, and intervention by lifestyle modification may be beneficial. HgbA1c greater or equal to 6.5% is considered diagnostic of diabetes. PCP: Nanda Oliveira MD PAST MEDICAL HISTORY Diagnosis Date Acute chronic obstructive pulmonary disease with respiratory failure AF (paroxysmal atrial fibrillation) ([facility]) Anxiety Arthritis Seeing Dr Elliott Cervical cancer ([facility]) hysterectomy CHF (congestive heart failure) ([facility]) Dr. Ramsey Chronic back pain Seeing Dr. Wallace Chronic respiratory failure with hypercapnia ([facility]) 10/06/2018 [facility], 09/09/2018: 7.38/54.7/77/32.6 on 30% O2. CKD (chronic kidney disease), stage III ([facility]) Constipation Coronary atherosclerosis of [place] coronary artery Cyst of left kidney repeat US 10/2020 DDD (degenerative disc disease), lumbar DM type 2 (diabetes mellitus, type 2) ([facility]) Dr. Lopez for podiatry DVT (deep venous thrombosis) ([facility]) Post op INA, BSO. Dysphagia Seeing Dr. Beaulieu Emphysema lung ([facility]) Essential hypertension Femur fracture, left ([facility]) 07/2022 s/p nail Functional dyspepsia Gastroparesis 2017 mild GERD without esophagitis Gout Headache History of colon polyps 11/28/2016 Hyperlipidemia Hyperuricemia Hypothyroidism Incontinence Seeing Dr. Chapman Lung nodule 02/[address] in 3 months Morbid obesity ([facility]) Muscle weakness Nausea Obesity hypoventilation syndrome ([facility]) on 2-3 L oxygen continuously PARESH on CPAP [facility] for BiPAP and [facility] for O2. PE (pulmonary thromboembolism) ([facility]) Post op INA/BSO. Pneumonia Pulmonary HTN ([facility]) Renal cyst repeat US 10/2020 RLS (restless legs syndrome) Shortness of breath Sleep apnea using oxygen currently, not on CPAP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 from Imaging Studies Foot X-Ray 01/03/23 20:58 IMPRESSION: No finding of bone infection. No acute abnormal finding in the foot. Electronically Signed: Jose Armando Loving MD at 21:47 EDT , Discharge Plan Triage Chief Complaint: Wound ED Provider: Maryanne Castro Dx/Rx/DC Orders Clinical Impression: Cellulitis of great toe of left foot, Diabetes mellitus type 2 in obese Instructions: ED Cellulitis, ED Diabetic Foot Care Prescriptions: New doxycycline hyclate 100 mg capsule 100 mg PO BID Qty: 20 0RF No Action potassium chloride 10 mEq tablet extended release 10 meq PO DAILY Hold Instructions: until lasix restarted allopurinol 100 mg tablet 100 mg PO DAILY buspirone 10 mg tablet 10 mg PO TID Rx Instructions: 10mg bid and 15mg QS Saline Mist 0.65 % aerosol,spray 2 spray intranasal DAILY atorvastatin 40 MG tablet 40 mg PO QHS Label Comments: cholesterol levothyroxine 100 MCG tablet 100 mcg PO DAILY Label Comments: thyroid duloxetine 60 mg capsule,delayed release(DR/EC) 60 mg PO DAILY Label Comments: mental health ascorbic acid (vitamin C) 500 MG tablet 500 mg PO DAILY@1700 Label Comments: Supplement aspirin 81 MG tablet 81 mg PO DAILY@1700 Label Comments: STOP 5 DAYS PRIOR TO OR fexofenadine 180 mg tablet 180 mg PO DAILY omeprazole 40 MG capsule,delayed release(DR/EC) 40 mg PO DAILY furosemide 20 MG tablet 20 mg PO BID Hold Instructions: hold until BP will allow reinitiation cholecalciferol (vitamin D3) 50 MCG capsule 2,000 unit PO DAILY insulin glargine [Lantus Solostar U-100 Insulin] 100 unit/mL (3 mL) insulin pen 42 unit SC BID insulin lispro 100 unit/mL insulin pen 16 unit SC BREAKFAST insulin lispro 100 unit/mL insulin pen 20 unit SC LUNCH insulin lispro 100 unit/mL insulin pen 24 unit SC DINNER ferrous sulfate 325 mg (65 mg iron) Tablet 325 mg PO DAILY amlodipine 5 mg tablet 5 mg PO DAILY isosorbide mononitrate 120 mg tablet extended release 24 hr 120 mg PO DAILY albuterol sulfate 90 mcg/actuation HFA aerosol inhaler 1 - 2 puff INHALATION PRN PRN (Reason: COPD) acetaminophen 500 mg Tablet 1,000 mg PO Q8 Qty: 0 0RF oxycodone 5 mg Tablet 5 - 10 mg PO Q4H PRN PRN (Reason: Pain Score 4-10/10) 5 Days Qty: 60 0RF nitroglycerin 0.4 mg tablet, sublingual 0.4 mg sublingual Q5-15M PRN (Reason: chest pain) Qty: 25 3RF apixaban 2.5 mg tablet 2.5 mg PO BID Label Comments: .Blood thinner- LAST DOSE 3-4 DAYS PRIOR, PT HAS WRITTEN ON PAPER metoprolol tartrate 100 mg tablet 100 mg PO BID Qty: 60 11RF Primary Care Provider: Bhupendra Oliveira Referrals: Bhupendra Oliveira MD [Primary Care Provider] - Activity Restrictions/Additional Instructions: 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 Please return to the emergency room if the redness is getting worse you develop fever or any progression of your symptoms. Disposition Disposition: Home, Self Care What to do if you have Problems For any increased pain, shortness of breath, bleeding, nausea or vomiting, chestpain, or any unexpected problems, contact your Primary Care Provider. Call [facility] ([phone]) or report to the closest Emergency Room. Call 911 if necessary. 01/04/236 <Electronically signed by Maryanne Castro DO> Cosigner Signature (if applicable): CC: Dr. Bhupendra Oliveira MD ~ Signed [facility] Work Phone: [phone]) 695-230904-14-2023 History of Present illness Narrative* Almita Youssef PA-C - 01/03/2023 5:46 PM EDT Images from the original note were not included. This note was created using NoteWriter. Subjective Tamia Panda is a 67 year old female. HPI Patient presents with painful red foot over the past 2 days. She started with 1 blister and then developed several more on her great toe extending into her foot. Her fourth toe also started with a blister the past day. She had surgery on the left hip 2 weeks ago. She also noted a rash on the insideof her left lower leg that is itchy. She denies fever or chills. Review of Systems Musculoskeletal: Left foot redness and pain All other systems reviewed and are negative. PAST MEDICAL HISTORY Diagnosis Date Acute chronic obstructive pulmonary disease with respiratory failure AF (paroxysmal atrial fibrillation) ([facility]) Anxiety Arthritis Seeing Dr Elliott Cervical cancer ([facility]) hysterectomy CHF (congestive heart failure) ([facility]) Dr. Ramsey Chronic back pain Seeing Dr. Wallace Chronic respiratory failure with hypercapnia ([facility]) 10/06/2018 [facility], 09/09/2018: 7.38/54.7/77/32.6 on 30% O2. CKD (chronic kidney disease), stage III ([facility]) Constipation Coronary atherosclerosis of [place] coronary artery Cyst of left kidney repeat US 10/2020 DDD (degenerative disc disease), lumbar DM type 2 (diabetes mellitus, type 2) ([facility]) Dr. Lopez for podiatry DVT (deep venous thrombosis) ([facility]) Post op INA, BSO. Dysphagia Seeing Dr. Beaulieu Emphysema lung ([facility]) Essential hypertension Femur fracture, left ([facility]) 07/2022 s/p nail Functional dyspepsia Gastroparesis 2016 mild GERD without esophagitis Gout Headache History of colon polyps 11/28/2016 Hyperlipidemia Hyperuricemia Hypothyroidism Incontinence Seeing Dr. Chapman Lung nodule 02/[address] in 3 months Morbid obesity ([facility]) Muscle weakness Nausea Obesity hypoventilation syndrome ([facility]) on 2-3 L oxygen continuously PARESH on CPAP [facility] Yelena for BiPAP and [facility] for O2. PE (pulmonary thromboembolism) ([facility]) Post op INA/BSO. Pneumonia Pulmonary HTN ([facility]) Renal cyst repeat US 10/2020 RLS (restless legs syndrome) Shortness of breath Sleep apnea using oxygen currently, not on CPAP Unsteadiness on feet Vitamin D deficiency Wheezing Current Outpatient Medications Medication Sig Dispense Refill albuterol HFA (PROAIR HFA) 90 mcg/actuation inhaler Inhale 2 Puffs as instructed every 4 hours as needed for wheezing/shortness of breath. 18 g 2 apixaban (ELIQUIS) 2.5 mg tab(s) Take 1 tablet by mouth twice daily. 60 tablet 2 nystatin (MYCOSTATIN) powder Apply 1 application to affected area three times daily. 60 g 2 potassium chloride (K-TAB) 10 mEq tablet Take 1 tablet by mouth daily with breakfast. 60 tablet 5 ferrous sulfate 325 mg (65 mg iron) tablet Take 1 tablet by mouth daily with breakfast. 30 tablet 2 alendronate (FOSAMAX) 70 mg tablet Take 1 tablet by mouth one time a week. Take with a full glass of water, on an empty stomach; do NOT lie down for 30minutes. 12 tablet 1 busPIRone (BUSPAR) 10 mg tablet Take one tablet in the AM, one tablet in the afternoon and 1.5 tablets in the evening 105 tablet 3 Cholecalciferol, Vitamin D3, (VITAMIN D-3) 50 mcg (2,000 unit) cap Take 1 capsule by mouth once daily. 90 capsule 1 oxyCODONE IR (ROXICODONE) 5 mg immediate release tablet Take by mouth every 8 hours as needed for pain. levothyroxine (SYNTHROID) 100 mcg tablet Take 1 tablet by mouth every morning. 90 tablet 1 atorvastatin (LIPITOR) 40 mg tablet Take 1 tablet by mouth once daily. 90 tablet 1 furosemide (LASIX) 20 mg tablet Take 1 tablet by mouth twice daily. 180 tablet 1 DULoxetine (CYMBALTA) 60 mg capsule Take 1 capsule by mouth once daily. 90 capsule 1 aspirin, enteric coated (ASPIRIN, ENTERIC COATED) 81 mg EC tablet Take 1 tablet by mouth every morning. 90 tablet 1 allopurinol (ZYLOPRIM) 100 mg tablet Take 1 tablet by mouth once daily. For gout. 90 tablet 1 omeprazole (PRILOSEC) 40 mg capsule Take 1 capsule by mouth once daily. 90 capsule 1 Melatonin 5 mg cap Take 1 capsule by mouth daily at bedtime. 90 capsule 1 blood sugar diagnostic (BLOOD GLUCOSE TEST) test strip Test blood sugar(s) up to 4 times daily. Dx:Type 2 DM - Uncontrolled E11.65 Insulin: Yes Freestyle Kira compatible test strips 100 Strip 2 insulin glargine (LANTUS SOLOSTAR U-100 INSULIN) 100 unit/mL (3 mL) Inject 42 units subcutaneously twice daily 15 Each 5 insulin needles, DISPOSABLE, (ULTICARE PEN NEEDLE) 31 gauge x 5/16 USE DIRECTED. TO INJECT INSULINS 200 Each 5 ascorbic acid, vitamin C, (VITAMIN C) 500 mg tablet Take 1 tablet by mouth once daily. 90 tablet 3 fexofenadine (ALLEN ALLERGY) 180 mg tablet Take 1 tablet by mouth once daily. 90 tablet 3 insulin lispro (HUMALOG KWIKPEN INSULIN) 200 unit/mL (3 mL) injection Inject subcutaneously 14 units with breakfast, 16 units with lunch, and 24 units with dinner 18 mL 5 cyclobenzaprine (FLEXERIL) 10 mg tablet Take 1 tablet by mouth twice daily as needed for muscle spasm. 60 tablet 0 BIPAP Bilevel PAP 16/12 cmH2O with 2 LPM oxygen bleed in, mask, tubing, filters, heated humidity, lifetime supplies. Dx: G47.33, G47.39. 1 Each 0 metoprolol tartrate, short acting, (LOPRESSOR) 50 mg tablet Take 1.5 tablets by mouth twice daily. 270 tablet 1 acyclovir (ZOVIRAX) 400 mg tablet Take 1 tablet by mouth three times daily. for 5 days prn outbreaks (Patient not taking: No sig reported) 30 tablet 1 lidocaine (XYLOCAINE) 5 % ointment Apply to affected area as needed. use a small amount to affectedarea qid prn pain 30 g 1 alcohol swabs UAD to clean skin before testing blood sugar and injecting insulins. 300 Each 5 Facial Mask misc 1 Device once daily. Oxygen mask to be worn daily for history of hypoxia. 1 Each 0 nitroglycerin sublingual (NITROQUICK) 0.4 mg SL tablet DISSOLVE 1 TAB UNDER THE TONGUE NEEDED FOR CHEST PAIN EVERY 5 MINUTES UP TO 3 TIMES. IF NO RELIEF CALL 911. 25 tablet 1 isosorbide mononitrate ER (IMDUR) 120 mg 24 hr tablet TAKE 1 TABLETS BY MOUTH EVERY MORNING - (120mg daily) COMPOUNDED PRESCRIPTION Pulse oximetry to be used PRN for SOB for COPD DX:J96.12 1 Device 0 promethazine (PHENERGAN) 25 mg tablet Take 1 tablet by mouth every 8 hours as needed (for nausea). 90 tablet 6 lancets (Yaolan.comTOUCH DELICA LANCETS) 30 gauge misc USE TO CHECK BLOOD SUGAR 4-5 TIMES DAILY, E11.9 100Each 5 fluorometholone (FML LIQUID FILM) 0.1 % ophthalmic suspension 1 Drop every 4 hours. flash glucose scanning reader (FREESTYLE KIRA 14 DAY READER) misc Use to check blood sugars 4-5 times per day Dx: Type 2 diabetes mellitus treated with insulin E11.9 1 Each 0 flash glucose sensor (FREESTYLE KIRA 14 DAY SENSOR) kit Use to check blood sugars 4-5 times per day. Dx: Type 2 diabetes mellitus treated with insulin E11.9 2 Kit 11 glucose 4 gram chewable tablet TAKE 4 TABLETS BY MOUTH NEEDED FOR LOW BLOOD SUGAR. 10 tablet 1 COMPOUNDED PRESCRIPTION Please fit for BiPAP mask. 1 Each 0 COMPOUNDED PRESCRIPTION OCD Titration for portable oxygen concentrator Oxygen Flow Rate between 2-6liters. To keep oxygen saturation at or above 92%. 1 Each 0 OXYGEN, HOME THERAPY, Inhale 3 L/min as instructed as directed. 0 COMPOUNDED PRESCRIPTION Evaluation for diabetic shoes and inserts Dx: E11.65, Z79.4 1 Each 0 Incontinence Pad, Liner, Disp pads 1 Device as needed (urinary incontinence). Prevail incontinence pads. Dx: urinary incontinence. Size: small 200 Each 11 Blood-Glucose Meter (ONETOUCH ULTRA2) monitoring kit UAD to test blood sugar 1 Each 0 No current facility-administered medications for this visit. PAST SURGICAL HISTORY Procedure Laterality Date CC PCI CORONARY INTERVENT 2003 CHOLECYSTECTOMY COLONOSCOPY Has had multiple in the past with polyps, cannot remember dates COLSC FLX W/RMVL OF TUMOR POLYP LESION SNARE TQ 11/28/2016 Repeat 2019 EGD TRANSORAL BIOPSY SINGLE/MULTIPLE 11/28/2016 HERNIA REPAIR HX multiple KNEE SURGERY HX Left x3 for torn cartilage NASAL SURGERY PROCEDURE sinus PAST SURGICAL HISTORY OF 01/30/2018 endoscopic per-oral pyloromyotomy PAST SURGICAL HISTORY OF Left 07/2022 cephalomedullary nail femur after fall with fracture TOTAL ABDOM HYSTERECTOMY 1987 Cervical cancer TUBAL LIGATION HX WRIST SURGERY HX Right ganglion cyst removal x2 FAMILY HISTORY Problem Relation Age of Onset Coronary Artery Disease Mother Coronary Artery Disease Father Asthma Brother Coronary Artery Disease Brother Diabetes Sister Hypertension Sister Diabetes Sister Heart Sister Allergies Sister Asthma Sister Allergies Sister Emphysema Sister Early stages COPD Paternal Uncle Social History Tobacco Use Smoking status: Former Packs/day: 1.00 Years: 28.00 Pack years: 28.00 Types: Cigarettes Start date: 1978 Quit date: 09/22/2005 Years since quittin.2 Smokeless tobacco: Never Tobacco comments: Father smoked in childhood. 2nd spouse smoked in home. Substance Use Topics Alcohol use: No Drug use: No Objective BP 126/82 Pulse (!) 58 Temp 36.2 C (97.1 F) Resp 18 Wt 83 kg (183 lb) SpO2 (!) 8% BMI 33.47 kg/m Physical Exam Vitals reviewed. Constitutional: Appearance: Normal appearance. Musculoskeletal: Feet: Feet: Comments: Patient has erythema extending across the dorsal first metatarsal of the left foot with several blisters. Area is cool to touch. Also erythema to the distal fourth digit with blister. The toes are all purple in color, worse than the right foot.pedal pulses not palpable. Can refil delayed in great toe. Patient very tender even to the slightest touch of the foot. Pain out of proportion toexam. Neurological: Mental Status: She is alert. Assessment and Plan ASSESSMENT/PLAN: 1. Foot pain, left - ICD9: 729.5, ICD10: M79.672 Concern for possible ischemia causing lesions and erythema. She does have petechiae on left inner thigh as well. Recent surgery on same side hip 2 weeks ago. Discussed concerns with patient and caregiver and recommended er evaluation. They will go to [facility], report sent via ER passport. Almita Youssef PA-C [facility] Instructions* Patient Instructions* Almita Youssef PA-C - 01/03/2023 5:22 PM EDT left foot redness, petechial rash on left leg, concern for ischemic ulcerations in left foot, recent surgery 2 weeks ago on left hip documented [facility] Miscellaneous Notes* Telephone Encounter - Pat Yaneli GONZALEZ - 12/27/2022 1:54 PM EDT Patient has been identified by name and date of : Pharmacy phones for refill(s): Requested Prescriptions Pending Prescriptions Disp Refills albuterol HFA (PROAIR HFA) 90 mcg/actuation inhaler 18 g 2 Sig: Inhale 2 Puffs as instructed every 4 hours as needed for wheezing/shortness of breath. apixaban (ELIQUIS) 2.5 mg tab(s) 60 tablet 2 Sig: Take 1 tablet by mouth twice daily. nystatin (MYCOSTATIN) powder 60 g 2 Sig: Apply 1 application to affected area three times daily. Date of last office visit in primary care: 09/27/2022, no future appt scheduled Last 2 Encounter Wt Readings: Date: Wt: 09/27/2022 83.4 kg (183 lb 12.8 oz) 07/04/2022 89.2 kg (196 lb 9.6 oz) Previous labs/tests for medication: Not applicable Please advise. Thank you. Pat Groves LPN documented in this encounterB[facility]23 Discharge summary Author Pancho Shultz [facility] December 20, 2022 1:13pm Note Date/Time December 20, 2022 6:4 8am [facility] Medical Records Department [address] [place] [id number] Instructions for Home/Discharge Instructions 12/20/22 0647 MR#: [id number] Acct: [id number] Name: TAMIA PANDA Rep #:[id number] : 1955 67 From: Pancho MORA PA-C PCP: Dr. Bhupendra Oliveira MD Status :ADM IN Discharge Instructions Diet Discharge Diet: No restrictions Activity Discharge Activity: May Not Drive (while taking narcotic pain medications.) May shower in (days): 1 (only if incision is dry and without drainage. Do NOT soak/submerge in tub/pool/mike/stream/hot tub.)) Ice area for (Minutes): 20 (Every 1-2 hours while awake[address] place barrier between ice and skin.) Weight Bearing Status: Weight bearing as tolerated (With walker) Keep extremity elevated above heart level: Operative Extremity Additional Activity Instructions:: Follow [facility] Post-op Instructions. Once postoperative dressing has been removed only use gentle soap and water overthe incision. Do not use any ointments, Neosporin, salves, alcohol pads over the incision for 6 weeks postoperatively. Do not submerge underwater for 6 weeks postoperatively. Wear elastic stockings for 2 weeks. Do NOT use alcohol with narcotic pain medication. Do NOT make important decisions while taking narcotic medication. If you have problems with taking your medication (rash, itching, nausea, etc.) call the office at once. Dressing / Incision Call your doctor if your incision/area has: Continuous Slow Oozing, Sudden Increased Bleeding, Increased Pain/ Swelling, Increased Redness and Foul Smelling Discharge Call your doctor if you observe: Fever of 101 or Higher, Shortness of breath, Chest pain, Calf discomfort and Uncontrolled pain Remove Dressing in: 3 days (Okay to remove dressings on December 23, 2022) Additional Dressing/Incision Instructions:: Follow [facility] Post-op Instructions. Once postoperative dressing has been removed, only use gentle soap and water over the incision. Do not use any ointments, Neosporin, salves, alcohol pads over the incision for 6 weeks postoperatively. Do not submerge underwater for 6weeks postoperatively. Continue with KELLIE hose/elastic stockings for 2 weeks postoperatively. May remove at nighttime but needs to be placed back on the leg during the day. Do NOT use alcohol with narcotic pain medication. Do NOT make important decisions while taking narcotic medication. If you have problems with taking your medication (rash, itching, nausea, etc.) call the office at once. Follow Up Care Test Results: Test results from this visit will be discussed in further detail at your follow- up appointment, if applicable. Discharge Plan Admission Admit Date/Time: 12/18/22 19:46 Attending Provider: Arlyn Leslie Primary Care Provider: Bhupendra Oliveira Consulting Providers: Pancho Shultz ; Yared Fernández Discharge Orders/Prescriptions Prescriptions: New acetaminophen 500 mg Tablet 1,000 mg PO Q8 Qty: 0 0RF oxycodone 5 mg Tablet 5 - 10 mg PO Q4H PRN PRN (Reason: Pain Score 4-10/10) 5 Days Qty: 60 0RF Continued potassium chloride 10 mEq tablet extended release 10 meq PO DAILY Hold Instructions: until lasix restarted allopurinol 100 mg tablet 100 mg PO DAILY buspirone 10 mg tablet 10 mg PO TID Rx Instructions: 10mg bid and 15mg QS Saline Mist 0.65 % aerosol,spray 2 spray intranasal DAILY atorvastatin 40 MG tablet 40 mg PO QHS Label Comments: cholesterol levothyroxine 100 MCG tablet 100 mcg PO DAILY Label Comments: thyroid duloxetine 60 mg capsule,delayed release(DR/EC) 60 mg PO DAILY Label Comments: mental health ascorbic acid (vitamin C) 500 MG tablet 500 mg PO DAILY@1700 Label Comments: Supplement aspirin 81 MG tablet 81 mg PO DAILY@1700 Label Comments: STOP 5 DAYS PRIOR TO OR fexofenadine 180 mg tablet 180 mg PO DAILY omeprazole 40 MG capsule,delayed release(DR/EC) 40 mg PO DAILY furosemide 20 MG tablet 20 mg PO BID Hold Instructions: hold until BP will allow reinitiation cholecalciferol (vitamin D3) 50 MCG capsule 2,000 unit PO DAILY insulin glargine [Lantus Solostar U-100 Insulin] 100 unit/mL (3 mL) insulin pen 42 unit SC BID insulin lispro 100 unit/mL insulin pen 16 unit SC BREAKFAST insulin lispro 100 unit/mL insulin pen 20 unit SC LUNCH insulin lispro 100 unit/mL insulin pen 24 unit SC DINNER ferrous sulfate 325 mg (65 mg iron) Tablet 325 mg PO DAILY amlodipine 5 mg tablet 5 mg PO DAILY isosorbide mononitrate 120 mg tablet extended release 24 hr 120 mg PO DAILY albuterol sulfate 90 mcg/actuation HFA aerosol inhaler 1 - 2 puff INHALATION PRN PRN (Reason: COPD) metoprolol tartrate 100 mg tablet 100 mg PO BID Qty: 30 11RF nitroglycerin 0.4 mg tablet, sublingual 0.4 mg sublingual Q5-15M PRN (Reason: chest pain) Qty: 25 3RF apixaban 2.5 mg tablet 2.5 mg PO BID Label Comments: .Blood thinner- LAST DOSE 3-4 DAYS PRIOR, PT HAS WRITTEN ON PAPER Discontinued enoxaparin [Lovenox] 80 mg/0.8 mL syringe 80 mg subcut Q12H Rx Instructions: Patient being bridged for upcoming surgery Referrals / Follow Up: Bhupendra Oliveira MD [Primary Care Provider] - 12/23/22 2:20 pm Pancho Shultz PA-C [Med Staff - Adv Practice Prof] - 01/02/23 3:15 pm Disposition Disposition (needs filled in before D/C Order can be placed): Home Health Service 12/20/22 1313<Electronically signed by Pancho MORA PA-C>Pancho MORA PA-C CC: JORI Shultz; Dr. Bhupendra Oliveira MD; Dr. Yared Fernándze, DO ~ Signed [facility] Work Phone: [phone]) 934-885803-31-[address] [facility] December 20, 2022 12:10pm Note Date/Time December 20, 2022 6:4 6am [facility] Medical Records Department [address] [place] [address] Progress Note - Orthopedic 12/20/22640 MR#: [id number] Acct: [id number] Name: TAMIA PANDA Rep #:[id number] : 1955 67 From: Pancho MORA PA-C PCP: Dr. Bhupendra Oliveira MD Status :ADM IN [id number] Subjective Subjective The patient was sitting in bed sleeping upon examination. Patient denies any chest pain, shortness of breath, dizziness, lightheadedness, nausea or vomiting,or calf pain. Pain is controlled on medications. No adverse overnight events. Patient has started to have some confusion of where she is at this morning. Discussed with nurse and states this started around 3 AM. She is alert and oriented to name date of and why she is in the hospital but does not know where she is at. Pain in the left hip has been controlled on medications. Casemanagement has been involved with appropriate discharge planning. Physical therapy is recommending care home facility however patient is refusing. They are working on home health. Nursing states patient continues to eat outside food including candy bars. Her blood sugars have been elevated. Objective Data Objective Data Vital Signs: Vital Signs Temp Pulse Resp BP Pulse Ox O2 Del Method O2 Flow Rate 97.9 F 102 H 18 141/85 H 100 Nasal Cannula 3 12/20/22 03:00 12/20/22 03:00 12/20/22 03:00 12/20/22 03:00 12/20/22 03:00 12/20/22 03:00 12/20/22 03:00 Oxygen Flow Rate (L/min) 3 Oxygen Delivery Method Nasal Cannula Weight: 91.626 kg Body Mass Index (BMI) 38.1 Intake & Output: Intake and Output for Last 24 Hours 12/18/22 12/19/22 12/20/22 23:59 23:59 23:59 Intake Total 1663.25 / 1663.25 1300 / 1300 Balance 1663.25 / 1663.25 1300 / 1300 Lab / Micro Data Result Diagrams: 12/19/22 09:08 12/19/22 09:08 Labs: Laboratory Results - last 24 hr 12/19/22 09:08: WBC 8.7, RBC 4.08 L, Hgb 12.3, Hct 39.8, MCV 97.5, MCH 30.1, MCHC 30.9 L, RDW Std Deviation 54.2 H, RDW Coeff of Aubrey 15.1 H, Plt Count 165, MPV 10.1, Immature Gran % (Auto) 0.500, Neut % (Auto) 89.8 H, Lymph % (Auto) 5.8L, Winn % (Auto) 3.7, Eos % (Auto) 0.0, Baso % (Auto) 0.2, Absolute Neuts (auto)7.9 H, Absolute Lymphs (auto) 0.51 L, Nucleated RBC % 0, Differential Comment SCANNED 12/19/22 09:08: Sodium 138, Potassium 4.7, Chloride 107, Carbon Dioxide 29.0, Anion Gap 2 L, BUN 19 H, Creatinine 1.23 H, Estim Creat Clear Calc 33.49, Est GFR (MDRD) Af Amer 56 L, Est GFR (MDRD) Non-Af 46 L, BUN/Creatinine Ratio 15.4, Glucose 266 H, Calcium 9.0 12/19/22 11:54: POC Glucose 372 H 12/19/22 17:08: POC Glucose 386 H 12/19/22 20:16: POC Glucose 372 H 12/20/22 05:36: POC Glucose 442 H Micro: Microbiology 12/11/22 15:48 Swab (Method) Nasal Screen MRSA/MSSA - Final Radiography Diagnostic Testing: Radiology Impression Hip/Pelvis X-Ray 12/18/22 14:26 IMPRESSION: 89.9 seconds of fluoroscopy time for an orthopedic procedure reduction internal fixation of left femur in progress. Refer to procedure notes for further information. Electronically Signed: Purvi Bradley MD at 15:12 EDT , Hip X-Ray 12/18/22 15:45 IMPRESSION: Status post reduction internal fixation of the left proximal femur. It appears to be in anatomic position and alignment. Electronically Signed: Purvi Bradley MD at 15:28 EDT , Physical Exam Narrative Vital signs stable and afebrile. Patient has had some mild tachycardia but denies any chest pain or shortness of breath. SCDs and KELLIE hose are in place bilaterally Patient is able to plantarflex and dorsiflex actively. Sensation is intact to light touch to saphenous, sural, superficial and deep peroneal, and tibial distribution. Dressings are clean dry and intact. Negative Homans bilaterally, negative signs and symptoms of DVT. Const alert, oriented x3 and no apparent distress Assessment & Plan Assessment/Plan (1) Closed intertrochanteric fracture of left femur: QUALIFIERS: Encounter type: initial encounter Fracture alignment:nondisplaced Qualified Code(s): S72.145A - Nondisplaced intertrochanteric fracture of left femur, initial encounter for closed fracture PLAN: 1. S/P revision nail/intertrochanteric hip fixation left hip POD #2 2. Continue Pain Medications: Tylenol and oxycodone 3. DVT Prophylaxis: Patient has been resumed on her Eliquis which she takes from cardiology. She was bridged preoperatively with Lovenox. Case was discussed with Arlyn Leslie. 4. PT/OT: Weightbearing as tolerated with walker. Patient was a 2 person assist yesterday and we do need physical therapy assessment for appropriate discharge planning. 5. H & H: CBC and BMP was ordered this morning. 6. Consult for social work/case management: Appreciate recommendations with regards to safe and appropriate discharge planning 7. Continue postoperative medical management per medicine 8. Encouraged Incentive Spirometry 9. Disposition: Physical therapy has recommended care home facility however patient is refusing. Case management currently on board and looking at home health. Patient is adamant that she goes home and she does have assistancefrom family. I again recommended to the patient going to care home facility and encouraged this. Explained to her she has a fall risk and has to have appropriate help. Again she is refusing care home facility. We will check back in later today with case management with regards to discharge planning. Continue pain medication as needed. I have reviewed the [place] Automated Rx Reporting System (OARRS) report for this patient for refill pattern and other prescriber involvement as part of the appropriate surveillance for the provision of acute and chronic controlled medications. The report was requested and reviewed on the date of this entry and was considered in the prescribing process. This dictation was created using voice recognition software. Phonetic and/or grammatical errors may exist. 12/20/22 0657 <Electronically signed by Pancho MORA PA-C> Cosigner Signature (if applicable): CC: ~ Signed ADDENDUM by Dr. Arlyn Leslie MD on 12/20/22 at 1209 Addendum I was able to see and evaluate the patient today. Agree with the physician food and beverage assistant manager's note. I had a significant discussion with the patient today about compliance in her care. She is contact-guard only on ambulation with physical therapy. Plan is for her to go home with home health care. She is refused any higher level of care. Based on today's therapy assessment she should be appropriate to go home with home health care. However, I did explain to the patient that her blood sugars are significantly high and if they remain this high she will continue to be too high risk to proceed with any further intervention if revision nailing fails. She does reports improvement in her symptoms both with weightbearing and sitting at rest. She did confess to reports of sugary snacks being small but her overnight which is likely why her blood sugars have been so significantly high. Had a thelma discussion with the patientabout being compliant with care. If patient remains noncompliant with both medical and postsurgical care I explained she will risk further surgical complications and failure and may be at risk for discharge from my practice due to failure to be compliant with care. [facility] Office: 12/20/22 1210<Electronically signed by Arlyn Leslie MD> Cosigner Signature (if applicable): cc: ~* Signed [facility] Work Phone: 1(546) 223-167303-30-[address] Fernández [facility] December 19, 2022 7:37pm Note Date/Time December 19, 2022 7:3 7pm [facility] Medical Records Department [address] [place] [address] Progress Note - Hospitalist 12/19/221928 MR#: [id number] Acct: [id number] Name: TAMIA PANDA Rep #:[id number] : 1955 67 From: Yared Fernández DO PCP: Dr. Bhupendra Oliveira MD Status :ADM IN [facility] Reason for Visit Reason for Visit: Diagnoses Displaced intertrochanteric fracture of left femur, initial encounter for closedfracture (12/18/22) Nondisplaced intertrochanteric fracture of left femur, initial encounter for closed fracture (12/18/22) Encounter for other preprocedural examination (12/18/22) Subjective Subjective Patient was seen and examined today at the request of orthopedic surgery, she underwent revision of an intertrochanteric hip fixation left hip yesterday. Patient has multiple medical problems including type 2 diabetes, essential hypertension, hypothyroidism, coronary artery disease, and paroxysmal atrial fibrillation. At the time my examination, patient was not complaining of any postop pain. She had no complaints of any fever, chills, shortness of breath, or chest pain. Objective Data Objective Data Vital Signs: Vital Signs Temp Pulse Resp BP Pulse Ox O2 Del Method O2 Flow Rate 98.1 F 68 18 116/79 95 Nasal Cannula 3 12/19/22 14:51 12/19/22 14:51 12/19/22 14:51 12/19/22 14:51 12/19/22 14:51 12/19/22 14:51 12/19/22 14:51 Oxygen Flow Rate (L/min) 3 Oxygen Delivery Method Nasal Cannula Weight: 91.626 kg Body Mass Index (BMI) 38.1 Intake & Output: Intake and Output for Last 24 Hours 12/17/22 12/18/22 12/19/22 23:59 23:59 23:59 Intake Total 1663.25 / 1663.25 1300 / 1300 Balance 1663.25 / 1663.25 1300 / 1300 Lab / Micro Data Result Diagrams: 12/19/22 09:08 12/19/22 09:08 Labs: Laboratory Results - last 24 hr 12/18/22 20:58: POC Glucose 218 H 12/19/22 09:08: WBC 8.7, RBC 4.08 L, Hgb 12.3, Hct 39.8, MCV 97.5, MCH 30.1, MCHC 30.9 L, RDW Std Deviation 54.2 H, RDW Coeff of Aubrey 15.1 H, Plt Count 165, MPV 10.1, Immature Gran % (Auto) 0.500, Neut % (Auto) 89.8 H, Lymph % (Auto) 5.8L, Winn % (Auto) 3.7, Eos % (Auto) 0.0, Baso % (Auto) 0.2, Absolute Neuts (auto)7.9 H, Absolute Lymphs (auto) 0.51 L, Nucleated RBC % 0, Differential Comment SCANNED 12/19/22 09:08: Sodium 138, Potassium 4.7, Chloride 107, Carbon Dioxide 29.0, Anion Gap 2 L, BUN 19 H, Creatinine 1.23 H, Estim Creat Clear Calc 33.49, Est GFR (MDRD) Af Amer 56 L, Est GFR (MDRD) Non-Af 46 L, BUN/Creatinine Ratio 15.4, Glucose 266 H, Calcium 9.0 12/19/22 11:54: POC Glucose 372 H 12/19/22 17:08: POC Glucose 386 H Micro: Microbiology 12/11/22 15:48 Swab (Method) Nasal Screen MRSA/MSSA - Final Radiography Diagnostic Testing: Radiology Impression Hip/Pelvis X-Ray 12/18/22 14:26 IMPRESSION: 89.9 seconds of fluoroscopy time for an orthopedic procedure reduction internal fixation of left femur in progress. Refer to procedure notes for further information. Electronically Signed: Purvi Bradley MD at 15:12 EDT , Hip X-Ray 12/18/22 15:45 IMPRESSION: Status post reduction internal fixation of the left proximal femur. It appears to be in anatomic position and alignment. Electronically Signed: Purvi Bradley MD at 15:28 EDT , Physical Exam Const alert, oriented x3, no apparent distress and average body habitus General Appearance: cooperative, well kempt and well developed Orientation / Consciousness: awake, oriented to person, oriented to place and oriented to time HEENT normocephalic, head/scalp atraumatic and moist oral mucous membranes Eyes PERRL, EOMs intact bilaterally and conjunctivae normal Neck supple, no JVD, thyroid normal and no carotid bruits General: trachea midline Resp normal respiratory effort, no retractions, no use of accessory muscles and clearto auscultation bilaterally Auscultation: Negative for rales, rhonchi or wheezes Cardio regular rate, regular rhythm, S1 normal heart sound, S2 normal heart sound, no murmurs, no rub and no gallops GI normal to inspection, nondistended, normoactive bowel sounds, soft to palpation,non-tender and non-distended Neuro oriented x3, CN's II-XII intact bilaterally, no focal motor deficits and no sensory deficits noted Sensorium / Orientation: awake and alert Speech: speech normal Psych affect normal Assessment & Plan Assessment/Plan (1) Diabetes mellitus type 2 in obese: PLAN: Plan 1. Type 2 diabetes-patient's blood sugars will be monitored, sliding scale insulin will be administered as needed, patient is on basal insulin and lispro insulin with meals #2 essential hypertension-patient will remain on her present medications #3 hyperlipidemia-patient is on atorvastatin #4 chronic depression-patient is on Cymbalta #5 hypothyroidism-patient is on levothyroxine #6 paroxysmal atrial fibrillation-patient is on Eliquis #7 status post revision of intertrochanteric hip fixation left hip-postop day #1, PT and OT are seeing patient Total clinical time spent by myself addressing the patient's medical issues, reviewing all of her data, and collaborating with the patient's care team: 35 minutes Charges/Coding Visit Charges Inpatient E&M: 45985 Subs Hosp L2 12/19/221936 <Electronically signed by Yared Fernández DO> Cosigner Signature (if applicable): CC: ~ Signed [facility] Work Phone: 1(351) 364-394403-30-2023 Progress note Author Pancho Shultz [facility] December 19, 2022 10:10am Note Date/Time December 19, 2022 10: 10am [facility] Medical Records Department [address] [place] [address] Progress Note - Orthopedic 12/19/22 1003 MR#: [id number] Acct: [id number] Name: TAMIA PANDA Rep #:[id number] : 1955 67 From: Pancho MORA PA-C PCP: Dr. Bhupendra Oliveira MD Status :ADM IN Location: [facility] [id number] Subjective Subjective The patient was sitting in bedside chair sleeping upon examination. Patient's oxygen tubing was around her eyes. Patient denies any chest pain, shortness of breath, dizziness, lightheadedness, nausea or vomiting, or calf pain. Pain is controlled on medications. No adverse overnight events. Patient was supposed to go home yesterday but due to inability to get up with weakness and two-personassist patient stayed overnight. She does live home alone and is concerned about moving. She does have family at home. She was initially to undergo removal of cephalomedullary nail with hemiarthroplasty versus total hip arthroplasty. However due to patient's preoperative work-up and comorbidities patient is not healthy enough to undergo that procedure. Dr. Arlyn Leslie opted to proceed with revision nail/intertrochanteric hip fixation. Objective Data Objective Data Vital Signs: Vital Signs Temp Pulse Resp BP Pulse Ox O2 Del Method O2 Flow Rate 98.1 F 95 18 114/91 H 98 Nasal Cannula 3 12/19/22 09:56 12/19/22 09:56 12/19/22 09:56 12/19/22 09:56 12/19/22 09:56 12/19/22 09:56 12/19/22 09:56 Oxygen Flow Rate (L/min) 3 Oxygen Delivery Method Nasal Cannula Weight: 91.626 kg Body Mass Index (BMI) 38.1 Intake & Output: Intake and Output for Last 24 Hours 12/17/22 12/18/22 12/19/22 23:59 23:59 23:59 Intake Total 1663.25 / 1663.25 1300 / 1300 Balance 1663.25 / 1663.25 1300 / 1300 Lab / Micro Data Result Diagrams: 12/19/22 09:08 12/19/22 09:08 Labs: Laboratory Results - last 24 hr 12/18/22 12:25: POC Glucose 357 H 12/18/22 15:53: POC Glucose 268 H 12/18/22 20:58: POC Glucose 218 H 12/19/22 09:08: WBC 8.7, RBC 4.08 L, Hgb 12.3, Hct 39.8, MCV 97.5, MCH 30.1, MCHC 30.9 L, RDW Std Deviation 54.2 H, RDW Coeff of Aubrey 15.1 H, Plt Count 165, MPV 10.1, Immature Gran % (Auto) 0.500, Neut % (Auto) 89.8 H, Lymph % (Auto) 5.8L, Winn % (Auto) 3.7, Eos % (Auto) 0.0, Baso % (Auto) 0.2, Absolute Neuts (auto)7.9 H, Absolute Lymphs (auto) 0.51 L, Nucleated RBC % 0 12/19/22 09:08: Sodium 138, Potassium 4.7, Chloride 107, Carbon Dioxide 29.0, Anion Gap 2 L, BUN 19 H, Creatinine 1.23 H, Estim Creat Clear Calc 33.49, Est GFR (MDRD) Af Amer 56 L, Est GFR (MDRD) Non-Af 46 L, BUN/Creatinine Ratio 15.4, Glucose 266 H, Calcium 9.0 Micro: Microbiology 12/11/22 15:48 Swab (Method) Nasal Screen MRSA/MSSA - Final Physical Exam Narrative Vital signs stable and afebrile. Patient has had 1 reading with tachycardia butdenies any chest pain, shortness of breath or palpitations. SCDs and KELLIE hose are in place bilaterally Patient is able to plantarflex and dorsiflex actively. Sensation is intact to light touch to saphenous, sural, superficial and deep peroneal, and tibial distribution. Dressings are clean dry and intact. Negative Homans bilaterally, negative signs and symptoms of DVT. Const alert, oriented x3 and no apparent distress Assessment & Plan Assessment/Plan (1) Closed intertrochanteric fracture of left femur: QUALIFIERS: Encounter type: initial encounter Fracture alignment:nondisplaced Qualified Code(s): S72.145A - Nondisplaced intertrochanteric fracture of left femur, initial encounter for closed fracture PLAN: 1. S/P revision nail/intertrochanteric hip fixation left hip POD #1 2. Continue Pain Medications: Tylenol and oxycodone 3. DVT Prophylaxis: Patient has been resumed on her Eliquis which she takes from cardiology. She was bridged preoperatively with Lovenox. Case was discussed with Arlyn Leslie. 4. PT/OT: Weightbearing as tolerated with walker. Patient was a 2 person assist yesterday and we do need physical therapy assessment for appropriate discharge planning. 5. H & H: Lab work orders were placed this morning, asymptomatic. 6. Consult for social work/case management: Appreciate recommendations with regards to safe and appropriate discharge planning 7. Consultation was placed for medicine due to patient's significant comorbidities 8. Encouraged Incentive Spirometry 9. Disposition: Patient is adamant that she goes home however I tried having a discussion with her about safe and appropriate discharge planning. I am fearfulof patient falling and sustaining another injury or fracture. She was required 2 person assist yesterday. We are having physical therapy assess for their discharge planning. Case management is also on board for discharge planning. Patient could benefit from skilled care to continue to focus on strength and mobility. Patient was to be an outpatient procedure yesterday and Dr. Arlyn Leslie has already sent in patient's narcotic postoperatively. She will resume her Eliquis today. Orders for home medications were placed this morning. Consultations were also placed this morning. Case was also discussed with Arlyn Leslie. I have reviewed the [place] Automated Rx Reporting System (OARRS) report for this patient for refill pattern and other prescriber involvement as part of the appropriate surveillance for the provision of acute and chronic controlled medications. The report was requested and reviewed on the date of this entry and was considered in the prescribing process. This dictation was created using voice recognition software. Phonetic and/or grammatical errors may exist. 12/19/22 1010 <Electronically signed by Pancho MORA PA-C> Cosigner Signature (if applicable): CC: ~ Signed [facility] Work Phone: 1([phone]) 420-378203-29-2023 Procedure [facility] 12-18-2022 History and physical note Author Dr. Leslie [facility] December 18, 2022 1:11pm Note Date/Time December 12, 2022 4:[address] [facility] Medical Records Department [address] [place] [address] History & Physical Exam 12/12/22 1612 MR#: [id number] Acct: [id number] Name: TAMIA PANDA Rep #:[id number] : 1955 67 From: Pancho MORA PA-C PCP: Dr. Bhupendra Oilveira MD Status :[facility] Location: [place] [address] History and Physical History and Physical? Patient Name: Tamia Panda : 1955 From:? PANCHO SHULTZ PA-C? DATE OF SURGERY:? 12/18/2022 SCHEDULED PROCEDURE:? ?Robotic-assisted conversion left hip to partial hip replacement versus total hip arthroplasty HISTORY OF PRESENT ILLNESS: Preoperative history and physical exam was performed on December 11, 2022.? This nancy 67-year-old female who previously fractured her left hip and underwent a left hip cephalo-medullary nail by Dr. Arlyn Leslie on August 05, 2022.? Patient was initially discharged to an extended care facility postoperatively.? She was discharged 3 weeks after the surgery to hold and never went through physical therapy once discharged.? She did have increased pain and inability to weight-bear.? She states the pain is too much to weight-bear on the left leg.? She did have a fall at home shortly after discharge from the care home facility.? She was initially to undergo surgery at [facility] but this had to be canceled and scheduled for [facility] due to her medical comorbidities.? She also had recent follow-up with the cargo and ramp services manager due to past chest pain at her previous preoperative visit with Rafy Gomez PA-C.? Patient hasobtain surgical clearance from her cargo and ramp services manager Dr. Ramsey.? Patient does currently take Eliquis and they are recommending stopping Eliquis 3 days before surgery but will need to be bridged with Lovenox.? We are reaching out to cardiology with regards to medications and dosage for the Lovenox.? Patient states she has this medication at home.? She has medical problems consistent with coronary artery disease, type 2 diabetes mellitus, hypertension, thyroid disease, asthma, atrial fibrillation, gastroesophageal reflux disease, overactive bladder, previous heart attack with heart stent, gout, history of pulmonary embolism after hysterectomy in 1987, dementia, and history of DVT.? Patient also requires 3 L of O2 daily.? She reports not having a care worker and this is managed by her primary care physician Dr. Oliveira.? She also reportshaving a chest x-ray 3 weeks ago.? She currently presents without her O2 and states the Tank is empty.? She has penicillin allergy in which she states she has hives.? She presents today in a wheelchair.? She currently denies any chest pain or shortness of breath.? After failing conservative measures and surgical intervention and discussing with Dr. Arlyn Leslie, the patient does wish to proceed with a conversion left hip to a partial hip replacement versus total hiparthroplasty.? We are obtaining surgical clearance from the primary care physician as well.? We are going to repeat lab work as she has had poor nutrition markers and elevated A1c. REVIEW OF SYSTEMS: Review Of Systems: Constitutional: Reports anxiety, but denies anorexia, change in appetite, fever and weight change,hard of hearing, and vision problems. Ears Nose Mouth Throat: Reports ringing in the ears. Cardiovasular: Reports chest pain and irregular heartbeat, but denies heart murmur and peripheral vascular disease. Respiratory: Reports asthma, sleep apnea and shortness of breath, but denies cough, pneumonia, tuberculosis and wheezing. Gastrointestinal: Reports constipation, heartburn and rectal itching, but deniesdiarrhea, nausea, bloody stools and vomiting. Genitourinary: Denies incontinence. Musculoskeletal: Reports leg swelling, pain, trouble walking and weakness? Skin: Denies Raynaud's, history of shingles and tattoo. Neurological: Reports numbness/tingling and tremor. Psychiatric: Reports anxiety, depression, insomnia and stress. Hematologic/Lymphatic: Reports anemia, bleeding/bruising tendency and past transfusion. Reviewed and updated. PAST MEDICAL HISTORY: Advance Care Plan: No Advance Directives Effective Date: 12/27/2014 Past Medical History: Medical Problems: Coronary Artery Disease (CAD), Diabetes, High Blood Pressure, Thyroid Disease, Asthma Cancer - (1987) CERVICAL- CANCER FREE A-Fib, GI Bleed, Hypercholesterolemia, GERD, Overactive Bladder, Osteoporosis, Restless Leg Syndrome, Osteoarthritis, DDD, Heart Attack, Gout, Pulmonary Embolism, Dementia, History Of Blood Clots/ DVT Accidents: Fracture - right ankle ribs lt hip rt shoulder x2 Surgical Hx: Hysterectomy - (1987) Hernia Repair - (1997) Arthroscopy - 1987 & 1989 left knee Excision Of Ganglion Cyst - (1987) RT WRIST Gallbladder - (1975) Tubal Ligation - (1976) Tonsillectomy - (1978) LT Knee Arthroscopy - (01/27/2015) [email or web address] Nasal - (12/2015) Heart Stent Left Hip Cephalomedullary Nail - (08/05/2022) DR. L[place]LIE @ [facility] Anesthesia Complications: Anesthesia Complications - FELL INTO A DEEP SLEEP Assistive Devices: Dentures, Glasses, Hearing Aid, Oxygen Tank, Wheel Chair, Walker, Cane Reviewed and updated. SOCIAL HISTORY: Social History: Marital: .Occupation: Disabled.Work Status: Disabled - (2005).Hand Dominance: Left-Handed. Personal Habits:? Cigarette Use: Former - (10/2006) 1 pack/day for 25 years .Smokeless Tobacco: Never Used Smokeless Tobacco.E-Cigarette Use: Never used.Alcohol: Denies use.Drug Use: Denies Use.Enjoy Exercising: Never Exercises. Reviewed, no changes. VITALS: Ht: 61.5 Wt: 190lb Wt k.184 BMI: 35.3 BP: 124/70 Pulse: 85 Resp: 14 T: 97.1 T: 36.2C Pain Level: 10 O2SatR: 97 ALLERGIES: PCN Bandaid - Cloth Bandages & Thick Plastic Bandages Cause Blisters Tape - Medical Tape Causes Blisters Cipro Latex Seasonal Amoxicillin Adhesive Tape Orphenadrine Citrate Reglan? MEDICATIONS: Fexofenadine HCL 180 mg 1 PO qdaily, Metoprolol Tartrate 100 mg twice A day, Omeprazole 40 mg 1 PO qdaily, Ascorbic Acid 500 mg daily@1700, Aspir-81 81 mg 1 by mouth every day, Isosorbide Mononitrate ER 120 mg 1 tab PO daily, Metoprolol Tartrate 25 mg 1 by mouth every day, Atorvastatin Calcium 40 mg 1 by mouth everyday, Duloxetine HCL 60 mg 1 cap PO bid, Albuterol Mdi 90 mcg/Act 2-3 puffs every6 hours as needed, Allopurinol 100 mg 1po qday, Eliquis 2.5 mg 1po bid, Buspirone HCL 10 mg 1po tid, Lantus Solostar 100 Unit/ML injects 42 units twice daily, Nitroglycerin 0.4 mg prn chest pain, Vitamin D3 1000 Unit 1po qday, Humalog Kwikpen 200 Unit/ML injects 16 units in the morning 20 units in the evening and then 24 units AT bedtime daily, Enoxaparin Sodium 80 mg/0.8ml injects twice before the surgery, Tylenol Extra Strength 500 mg 2 by mouth every8 hours prn, Vitamin C 500 mg 1 by mouth every day, Iron 325 (65 Fe) MG 1 PO qdaily PRE-OP EXAM:? General appearance:NORMAL? ? ? Other: Eyes: Conjunctivae and lids: NORMAL? Pupils: ERR Ears, Nose, Mouth, and Throat: NORMAL? Other: Inspection of lips, teeth and gums: NORMAL? ?Other: Neck: Examination of neck: no masses noted. Respiratory: Assessment of respiratory effort: NORMAL? ?Other: ?Auscultation of lungs: clear to auscultation no wheezes, rhonchi or rales. Cardiovascular:? Auscultation of heart: regular rate and rhythm, no murmurs, gallops or rubs. PHYSICAL EXAMINATION: On exam this is a pleasant 67-year-old female who presents today in a wheelchair.? Exam for the hip was limited.? She had increased pain with any motion of the left hip.? She has +1 edema in the lower extremity.? Sensation intact to light touch to bilateral lower extremities. IMAGING STUDIES: Previous x-rays reveal left hip cephalomedullary nail with screw cut out from the femoral head which has changed from previous postoperative x-rays and intraoperative films. IMPRESSION: 1.? Painful left hip with previous cephalo-medullary nail and screw cut out 2.? Coronary artery disease, 3.? Previous heart attack with stent placement 4.? Hypertension 5.? Type 2 diabetes mellitus with last A1c 7.5 6.? Thyroid disease 7.? Asthma 8.? Previous cancer 9.? Atrial fibrillation 10.? Hypercholesterolemia 11.? Gastroesophageal reflux disease 12.? Overactive bladder 13.? Previous history of GI bleed 14 restless leg syndrome 15.? Degenerative disc disease 16.? History of pulmonary embolism 1988 17.? Dementia 18.? Previous history DVT 19.? O2 dependent with 3 L daily PLAN: Dr. Arlyn Leslie did discuss and review with the patient all treatment options including surgical versus nonsurgical options.? Patient does wish to proceed with the above-stated procedure.? Potential risks, benefits, and complications of the procedure were discussed in detail including but not limited to , infection, nerve and blood vessel damage, persistent pain, numbness, tingling, paresthesias, blood clot, pulmonary embolism, and requirement for possible further surgery.? The patient expressed full understanding and has no further questions for the doctor.? Patient does agree to proceed with the above-stated procedure and has signed the surgery consent form. This dictation was created using voice recognition software. Phonetic and/or grammatical errors may exist. ___? I have re-examined the patient.? There are no clinical changes since date of exam. ___? See progress notes for changes. ___? Dictated on admission Date: ? ? ?Time: Signature: 12/12/22 7133 <Electronically signed by Pancho MORA PA-C> Cosigner Signature (if applicable): CC: JORI Shultz; Dr. Bhupendra Oliveira MD; Dr. Arlyn Leslie MD~ Signed ADDENDUM by Dr. Arlyn Leslie MD on 12/16/22 at 1617 Addendum PT SEEN AND EVALUATED TODAY TO REVIEW CT SCAN AND PREOP LAB/OPTIMIZATION RESULTS. At this point I've again discussed with the patient the anterior screw cut out. However the CT scan appear to show a fracture that is healing adequately. Afterreviewing the patient's preoperative workup and her complaints of left knee pain. I've recommended these changes to her treatment plan. The first is a corticosteroid injection in her left knee. I recommended that we postpone any conversion to total hip replacement is the extent of the surgery place the patient at significant risk based on her preoperative workup. Based on the factthat the screw is slightly prominent anteriorly and non-the main weightbearing surface I recommended we retracted screw to a position that does not remained prominent. Based on the patient's medical frailty this will likely help alleviate her pain and allow for better weightbearing or placing her at decreased risk overall medical complications and surgical complications associated with surgery. Patient's family member was with him today and all parties agreed to proceed in this manner. Patient and family member do understand that further surgery may be indicated if patient's medical condition can be improved and further optimized over time. Relieving her pain and improving mobility we'll go a long way helping with this. However, despite her medical condition retracting screw in order to help alleviate pain she still be performed despite her medical comorbidities. 12/16/22 1617<Electronically signed by Arlyn Leslie MD> Cosigner Signature (if applicable): cc: JORI Shultz; Dr. Bhupendra Oliveira MD; Dr. Arlyn Leslie MD ~* Signed ADDENDUM by Dr. Arlyn Leslie MD on 12/18/22 at 1311 Addendum Patient was seen and examined again today. No changes since most recent addendum. Patient is agreeable to the current treatment plan including revisingthe position of the lag screw of the nail. 12/18/22 131<Electronically signed by Arlyn Leslie MD> Cosigner Signature (if applicable): cc: JORI Shultz; Dr. Bhupendra Oliveira MD; Dr. Arlyn Leslie MD ~* Signed [facility] Work Phone: 1(583) 182-627103-21-2023 Miscellaneous Notes* Telephone Encounter - Irene Palacios LPN - 12/10/2022 10:09 AM EDT Phoned [employer] and updated her with provider's message. She voiced understanding. Advised patient to have [employer] send over paperwork for incontinence supplies and PCP can sign the orders. * Telephone Encounter - Purnima Donovan RN - 12/07/2022 8:18 AM EDT TC patient left message for patient to call back and speak with a triage nurse regarding message below. Purnima Donovan RN * Telephone Encounter - Uma Blair LPN - 12/06/2022 11:10 AM EDT Patient telephoned. Message left to call back for update. Uma Blair LPN * Telephone Encounter - Nanda Oliveira MD - 12/06/2022 8:50 AM EDT She may stop the melatonin if it is not helping with sleep. Agree with f/u visit. If she is having symptoms of burning with urination, increased frequency, urgency, or blood would have her come in sooner for OV to rule out UTI or [facility] for check. * Telephone Encounter - Purnima Donovan RN - 12/05/2022 4:47 PM EDT Patient calls and states that melatonin does not help with sleep. Patient asking if provider can take her off of medication. Patient has multiple questions about medications and on whether she needs to take medications. Patient set up medication follow up visit with provider on 12/16/2022. Patient also has questions about incontinence pads and the frequency she uses them, as well as length and thickness of pads. Patient states her urine incontinence is a lot. Patient uses [employer] for medical supplies. Please review and advise, Purnima Donovan RN documented in this encounterBrec[facility] Miscellaneous Notes* Telephone Encounter - Pat Groves LPN - 11/04/2022 2:39 PM EST Patient has been identified by name and date of : Pharmacy phones for refill(s): Requested Prescriptions Pending Prescriptions Disp Refills ferrous sulfate 325 mg (65 mg iron) tablet 30 tablet 2 Sig: Take 1 tablet by mouth daily with breakfast. alendronate (FOSAMAX) 70 mg tablet 12 tablet 1 Sig: Take 1 tablet by mouth one time a week. Take with a full glass of water, on an empty stomach; do NOT lie down for 30minutes. busPIRone (BUSPAR) 10 mg tablet 105 tablet 3 Sig: Take one tablet in the AM, one tablet in the afternoon and 1.5 tablets in the evening Date of last office visit in primary care: 09/27/2022, no future appt scheduled Last 2 Encounter Wt Readings: Date: Wt: 09/27/2022 83.4 kg (183 lb 12.8 oz) 07/04/2022 89.2 kg (196 lb 9.6 oz) Previous labs/tests for medication: Blood Pressure: BUN (mg/dL) Date Value 09/27/2022 20 11/13/2021 18 Sodium (mmol/L) Date Value 09/27/2022 144 11/13/2021 143 Last 1 Encounter BP Readings: Date: BP: 09/27/2022 128/84 Please advise. Thank you. Pat Groves LPN documented in this encounterBrecks[facility]01-18-[facility]23 Miscellaneous Notes* Telephone Encounter - Nanda Oliveira MD - 10/09/2022 1:36 PM EST Reviewed. Thank you. * Telephone Encounter - Maureen Tripp RN - 10/09/2022 1:26 PM EST Pt called in and wanted to let the provider know that she has a nuclear stress test set for 10/15/22. She states that Dr Ramsey wanted her to wear a halter monitor and she is scheduled to have thatplaced on 10/17/22. Pt also reports she had called her oxygen company for more tubing and she still hasn't received it. I told her she would need to check with them on tracking where it is. She states they had told her before that it should already be there. I told her if she is having problems she should ask to speak with their Ombudsman and see if they can help her with this problem. documented in this encounterBrecksville [facility]01-13-2023 Miscellaneous Notes* Telephone Encounter - Irene Palacios LPN - 10/04/2022 12:22 PM EST Orders forwarded to [employer] supply as requested. * Telephone Encounter - Nanda Oliveira MD - 10/04/2022 11:46 AM EST Orders printed. Please fax as requested. * Telephone Encounter - Purnima Donovan RN - 10/04/2022 10:58 AM EST Patient calls and states that her shower chair is falling apart. Patient had talked to her waiver instructor trainer canine service and was told that she needed to get an order for this. Patient asking if providercan write an order for a new shower chair as well as a new wheel chair. Patient states that she uses [facility] for her DME needs. Please review and advise, Purnima Donovan RN documented in this encounter[facility] Miscellaneous Notes* Telephone Encounter - Purnima Donovan RN - 10/04/2022 10:42 AM EST Last Office Visit: 09/27/2022 Future Office Visit: None Requested Prescriptions Pending Prescriptions Disp Refills Cholecalciferol, Vitamin D3, (VITAMIN D-3) 50 mcg (2,000 unit) cap 90 capsule 1 Sig: Take 1 capsule by mouth once daily. albuterol HFA (PROAIR HFA) 90 mcg/actuation inhaler 18 g 2 Sig: Inhale 2 Puffs as instructed every 4 hours as needed for wheezing/shortness of breath. apixaban (ELIQUIS) 2.5 mg tab(s) 60 tablet 2 Sig: Take 1 tablet by mouth twice daily. nystatin (MYCOSTATIN) powder 60 g 2 Sig: Apply 1 application to affected area three times daily. Date of Last Labs: 09/27/2022 documented in this encounterBrec[facility]23 Miscellaneous Notes* Telephone Encounter - Maureen Tripp RN - 09/30/2022 3:46 PM EST Pt called and is notified of providers message. Pt voices understanding. Maureen Tripp RN * Telephone Encounter - Nanda Oliveira MD - 09/30/2022 3:26 PM EST 3b is worse than 3a, but they are both still moderate kidney disease. * Telephone Encounter - Irene Palacios LPN - 09/30/2022 2:30 PM EST Reviewed results and recommendations with patient patient voiced understanding but requested clarification on What's the difference between CKD stage IIIa and IIIb? Advised patient would route message to PCP for his review and get back with her. * Telephone Encounter - Irene Palacios LPN - 09/30/2022 2:30 PM EST ----- Message from Nanda Oliveira MD sent at 09/29/2022 2:13 PM EST ----- Improved DM control with A1c down to 6.5. Stable CKD in stage IIIa range. Recommend low sodium diet <2,000 mg per day and avoidance of NSAIDs. Continue to work on DM control as well. Cholesterol in good range. Thyroid levels normal. Blood counts normal. No changes to regimen. documented in this encounterBrec[facility] History of Present illness Narrative* Nanda Oliveira MD - 09/27/2022 11:14 AM EST Chief Complaint Patient presents with: Medical Clearance: For surgery on left hip- patient reports pain as to be expected in left leg. Shehas pain medication she reports. HPI Tamia Panda is a 67 year old female with PMH: a fib, hypothyroidism, Anemia, Type II DM on insulin oil heaterman, CKD, HTN, DVT, OA, PARESH on CPAP, chronic hypoxia on home oxygen who presents here todayfor Above Complaints. Patient here today for pre op clearance left total hip by Dr. Leslie. Date is not scheduled, but told she needs this DAVEY. Had nail placed after fall back in July, but her bone is not strong enough to hold this in place. Notes that she has had several days of chest pain in the last week which she describes as throbbingpain in a circular pattern on left side. Radiated into her left shoulder. Associated with SOB, lightheadedness, palpitations. Occurred while at rest and persisted for several days. Pain resolved 1-2 days ago. Has not taken nitro for her symptoms. Has not contacted her cargo and ramp services manager, but has follow up with them around 08/15. Taking her insulin for her DM as prescribed. Last A1c was 7.4 about 3 months ago. Has been checkingsugars at home 4-5 times per day with 30 day average of 163 on her Freestyle Kira. BP well controlled on current regimen. Taking synthroid as prescribed without side effects. Admits to recent 13 lb weight loss, but has been trying to eat healthier diet. Chronic hypoxia on oxygen: Admits to recent wheezing which is improved with her albuterol inhaler. Denies fever, chills, SOB, cough, LE edema, claudication. A fib/CHF/CAD: managed by Dr. Ramsey's office. Asymptomatic on current regimen. Denies bleeding or bruising symptoms on anticoagulation. Past medical history, appointments, medications, allergies reviewed. Previous Medical History PAST MEDICAL HISTORY Diagnosis Date Acute chronic obstructive pulmonary disease with respiratory failure AF (paroxysmal atrial fibrillation) ([facility]) Anxiety Arthritis Seeing Dr Elliott Cervical cancer ([facility]) hysterectomy CHF (congestive heart failure) ([facility]) Dr. Ramsey Chronic back pain Seeing Dr. Wallace Chronic respiratory failure with hypercapnia ([facility]) 10/06/2018 [facility], 09/09/2018: 7.38/54.7/77/32.6 on 30% O2. CKD (chronic kidney disease), stage III ([facility]) Constipation Coronary atherosclerosis of [place] coronary artery Cyst of left kidney repeat US 10/2020 DDD (degenerative disc disease), lumbar DM type 2 (diabetes mellitus, type 2) ([facility]) Dr. Lopez for podiatry DVT (deep venous thrombosis) ([facility]) Post op INA, BSO. Dysphagia Seeing Dr. Beaulieu Emphysema lung ([facility]) Essential hypertension Functional dyspepsia Gastroparesis 2017 mild GERD without esophagitis Gout Headache History of colon polyps 11/28/2016 Hyperlipidemia Hyperuricemia Hypothyroidism Incontinence Seeing Dr. Chapman Lung nodule 02/[address] in 3 months Morbid obesity ([facility]) Muscle weakness Nausea Obesity hypoventilation syndrome (HCC) on 2-3 L oxygen continuously PARESH on CPAP [facility] for BiPAP and [facility] for O2. PE (pulmonary thromboembolism) ([facility]) Post op INA/BSO. Pneumonia Pulmonary HTN (HCC) Renal cyst repeat US 10/2020 RLS (restless legs syndrome) Shortness of breath Sleep apnea using oxygen currently, not on CPAP Unsteadiness on feet Vitamin D deficiency Wheezing Previous Surgical History PAST SURGICAL HISTORY Procedure Laterality Date CC PCI CORONARY INTERVENT 2004 CHOLECYSTECTOMY COLONOSCOPY Has had multiple in the past with polyps, cannot remember dates COLSC FLX W/RMVL OF TUMOR POLYP LESION SNARE TQ 11/28/2016 Repeat 2020 EGD TRANSORAL BIOPSY SINGLE/MULTIPLE 11/28/2016 HERNIA REPAIR HX multiple KNEE SURGERY HX Left x3 for torn cartilage NASAL SURGERY PROCEDURE sinus PAST SURGICAL HISTORY OF 01/30/2018 endoscopic per-oral pyloromyotomy TOTAL ABDOM HYSTERECTOMY 1988 Cervical cancer TUBAL LIGATION HX WRIST SURGERY HX Right ganglion cyst removal x2 Family History FAMILY HISTORY Problem Relation Age of Onset Coronary Artery Disease Mother Coronary Artery Disease Father Asthma Brother Coronary Artery Disease Brother Diabetes Sister Hypertension Sister Diabetes Sister Heart Sister Allergies Sister Asthma Sister Allergies Sister Emphysema Sister Early stages COPD Paternal Uncle Patient Allergies ALLERGIES Allergen Reactions Adhesive Tape (Adrienne* Intolerance Surgical tape leaves rash Irritates skin badly and blisters along with medical tape Cats Other: See Comments Congested and itchy, difficulty breathing Dogs Other: See Comments Congestion, sneezing, and difficulty breathing Orphenadrine Unknown Capsaicin Itching Ciprofloxacin Other: See Comments Red, hot, itchy rash Keflex [Cephalexin] Hives Negative skin testing and [...] after 30 minutes, proceed with regular dosing. Niacin Unknown Pt states its niacin its niaspan Reglan [Metoclopram* Other: See Comments Unable to sleep Xanthines Unknown Zofran [Ondansetron* Itching Current Medications Current Outpatient Medications on File Prior to Visit Medication Sig levothyroxine (SYNTHROID) 100 mcg tablet Take 1 tablet by mouth every morning. atorvastatin (LIPITOR) 40 mg tablet Take 1 tablet by mouth once daily. furosemide (LASIX) 20 mg tablet Take 1 tablet by mouth twice daily. DULoxetine (CYMBALTA) 60 mg capsule Take 1 capsule by mouth once daily. aspirin, enteric coated (ASPIRIN, ENTERIC COATED) 81 mg EC tablet Take 1 tablet by mouth every morning. allopurinol (ZYLOPRIM) 100 mg tablet Take 1 tablet by mouth once daily. For gout. omeprazole (PRILOSEC) 40 mg capsule Take 1 capsule by mouth once daily. Melatonin 5 mg cap Take 1 capsule by mouth daily at bedtime. ferrous sulfate 325 mg (65 mg iron) tablet Take 1 tablet by mouth daily with breakfast. blood sugar diagnostic (BLOOD GLUCOSE TEST) test strip Test blood sugar(s) up to 4 times daily. Dx:Type 2 DM - Uncontrolled E11.65 Insulin: Yes Freestyle Kira compatible test strips nystatin (MYCOSTATIN) powder Apply 1 application to affected area three times daily. insulin glargine (LANTUS SOLOSTAR U-100 INSULIN) 100 unit/mL (3 mL) Inject 42 units subcutaneously twice daily albuterol HFA (PROAIR HFA) 90 mcg/actuation inhaler Inhale 2 Puffs as instructed every 4 hours as needed for wheezing/shortness of breath. apixaban (ELIQUIS) 2.5 mg tab(s) Take 1 tablet by mouth twice daily. busPIRone (BUSPAR) 10 mg tablet Take one tablet in the AM, one tablet in the afternoon and 1.5 tablets in the evening insulin needles, DISPOSABLE, (ULTICARE PEN NEEDLE) 31 gauge x 5/16 USE DIRECTED. TO INJECT INSULINS alendronate (FOSAMAX) 70 mg tablet Take 1 tablet by mouth one time a week. Take with a full glass of water, on an empty stomach; do NOT lie down for 30minutes. Cholecalciferol, Vitamin D3, (VITAMIN D-3) 50 mcg (2,000 unit) cap Take 1 capsule by mouth once daily. ascorbic acid, vitamin C, (VITAMIN C) 500 mg tablet Take 1 tablet by mouth once daily. fexofenadine (ALLEN ALLERGY) 180 mg tablet Take 1 tablet by mouth once daily. insulin lispro (HUMALOG KWIKPEN INSULIN) 200 unit/mL (3 mL) injection Inject subcutaneously 14 units with breakfast, 16 units with lunch, and 24 units with dinner cyclobenzaprine (FLEXERIL) 10 mg tablet Take 1 tablet by mouth twice daily as needed for muscle spasm. potassium chloride (K-TAB) 10 mEq tablet Take 1 tablet by mouth daily with breakfast. BIPAP Bilevel PAP 16/12 cmH2O with 2 LPM oxygen bleed in, mask, tubing, filters, heated humidity, lifetime supplies. Dx: G47.33, G47.39. metoprolol tartrate, short acting, (LOPRESSOR) 50 mg tablet Take 1.5 tablets by mouth twice daily. acyclovir (ZOVIRAX) 400 mg tablet Take 1 tablet by mouth three times daily. for 5 days prn outbreaks (Patient not taking: No sig reported) lidocaine (XYLOCAINE) 5 % ointment Apply to affected area as needed. use a small amount to affectedarea qid prn pain alcohol swabs UAD to clean skin before testing blood sugar and injecting insulins. Facial Mask misc 1 Device once daily. Oxygen mask to be worn daily for history of hypoxia. nitroglycerin sublingual (NITROQUICK) 0.4 mg SL tablet DISSOLVE 1 TAB UNDER THE TONGUE NEEDED FOR CHEST PAIN EVERY 5 MINUTES UP TO 3 TIMES. IF NO RELIEF CALL 911. isosorbide mononitrate ER (IMDUR) 120 mg 24 hr tablet TAKE 1 TABLETS BY MOUTH EVERY MORNING - (120mg daily) COMPOUNDED PRESCRIPTION Pulse oximetry to be used PRN for SOB for COPD DX:J96.12 promethazine (PHENERGAN) 25 mg tablet Take 1 tablet by mouth every 8 hours as needed (for nausea). lancets (E[employer] In [employer] LANCETS) 30 gauge misc USE TO CHECK BLOOD SUGAR 4-5 TIMES DAILY, E11.9 fluorometholone (FML LIQUID FILM) 0.1 % ophthalmic suspension 1 Drop every 4 hours. flash glucose scanning reader (FREESTYLE KIRA 14 DAY READER) misc Use to check blood sugars 4-5 times per day Dx: Type 2 diabetes mellitus treated with insulin E11.9 flash glucose sensor (FREESTYLE KIRA 14 DAY SENSOR) kit Use to check blood sugars 4-5 times per day. Dx: Type 2 diabetes mellitus treated with insulin E11.9 glucose 4 gram chewable tablet TAKE 4 TABLETS BY MOUTH NEEDED FOR LOW BLOOD SUGAR. COMPOUNDED PRESCRIPTION Please fit for BiPAP mask. COMPOUNDED PRESCRIPTION OCD Titration for portable oxygen concentrator Oxygen Flow Rate between 2-6liters. To keep oxygen saturation at or above 92%. OXYGEN, HOME THERAPY, Inhale 3 L/min as instructed as directed. COMPOUNDED PRESCRIPTION Evaluation for diabetic shoes and inserts Dx: E11.65, Z79.4 Incontinence Pad, Liner, Disp pads 1 Device as needed (urinary incontinence). Prevail incontinence pads. Dx: urinary incontinence. Size: small Blood-Glucose Meter (HealthyOut ULTRA2) monitoring kit UAD to test blood sugar No current facility-administered medications on file prior to visit. Social History Social History Tobacco Use Smoking status: Former Packs/day: 1.00 Years: 28.00 Pack years: 28.00 Types: Cigarettes Start date: 1978 Quit date: 09/22/2005 Years since quittin.0 Smokeless tobacco: Never Tobacco comments: Father smoked in childhood. 2nd spouse smoked in home. Substance Use Topics Alcohol use: No Drug use: No Review of Symptoms REVIEW OF SYSTEMS See HPI EXAM: BP 128/84 Pulse 75 Temp 36.3 C (97.4 F) Resp 16 Wt 83.4 kg (183 lb 12.8 oz) SpO2 99% BMI 33.62 kg/m General Appearance: Well appearing, alert, in no acute distress, well-hydrated, well nourished.. Skin: Skin color, texture, turgor normal, no suspicious rashes or lesions. Lungs: Lungs clear to auscultation. No wheezing, rhonchi, rales.. Heart: Negative findings: no murmurs, clicks, or gallops, Positive findings: irregularly irregular rhythm with normal rate. Abdomen: Abdomen soft. Bowel sounds normal. No masses, organomegaly, Positive findings: tenderness mild generalized without guarding or rebound which is chronic. Extremities: No deformities, edema, skin discoloration, clubbing or cyanosis. Good capillary refill. . Health Maintenance List SHINGRIX VACCINE(2 of 3) due on 03/11/2017 COLORECTAL CANCER SCREENING due on 11/29/2021 MAMMOGRAM due on 12/28/2021 DILATED RETINAL EXAM due on 04/02/2022 ADVANCE DIRECTIVE DISCUSSION Never done HBA1C due on 01/02/2023 URINE ALBUMIN:CREATININE RATIO due on 03/01/2023 LDL CHOLESTEROL due on 03/01/2023 DIABETIC FOOT EXAM due on 03/01/2023 SERUM CREATININE due on 07/04/2023 HEMOGLOBIN/HEMATOCRIT due on 07/04/2023 ANNUAL PCP TEAM CHRONIC DISEASE VISIT due on 07/11/2023 BP CONTROLLED (<130/80) due on 07/11/2023 DTAP,TDAP,TD(2 - Td or Tdap) due on 10/02/2026 BONE DENSITY Completed INFLUENZA Completed HEPATITIS C SCREENING Completed COVID-19 VACCINE Completed PNEUMOCOCCAL: 65+ Completed Data reviewed Component Latest Ref Rng & Units 07/04/2022 WBC 3.70 - 11.00 k/uL 5.57 RBC 3.90 - 5.20 m/uL 4.01 Hemoglobin 11.5 - 15.5 g/dL 11.9 Hematocrit 36.0 - 46.0 % 38.4 MCV 80.0 - 100.0 fL 95.8 MCH 26.0 - 34.0 pg 29.7 MCHC 30.5 - 36.0 g/dL 31.0 RDW-CV 11.5 - 15.0 % 14.7 Platelet Count 150 - 400 k/uL 169 MPV 9.0 - 12.7 fL 10.5 Neut% % 68.0 Abs Neut (ANC) 1.45 - 7.50 k/uL 3.79 Lymph% % 16.2 Abs Lymph 1.00 - 4.00 k/uL 0.90 (L) Winn% % 9.7 Abs Winn <0.87 k/uL 0.54 Eosin% % 5.2 Abs Eosin <0.46 k/uL 0.29 Baso% % 0.5 Abs Baso <0.11 k/uL 0.03 Immature Gran % % 0.4 IMMATURE GRANS (ABS) <0.10 k/uL <0.03 NRBC /100 WBC 0.0 Absolute nRBC <0.01 k/uL <0.01 DTYPE Auto Protein, Total 6.3 - 8.0 g/dL 6.8 Albumin 3.9 - 4.9 g/dL 3.7 (L) Calcium 8.5 - 10.2 mg/dL 9.0 Bilirubin, Total 0.2 - 1.3 mg/dL 0.7 Alkaline Phosphatase 34 - 123 U/L 68 AST 13 - 35 U/L 14 ALT 7 - 38 U/L 8 Glucose 74 - 99 mg/dL 87 BUN 7 - 21 mg/dL 11 Creatinine 0.58 - 0.96 mg/dL 1.12 (H) Sodium 136 - 144 mmol/L 143 Potassium 3.7 - 5.1 mmol/L 3.7 Chloride 97 - 105 mmol/L 101 CO2 22 - 30 mmol/L 31 (H) Anion Gap 9 - 18 mmol/L 11 eGFR >=60 mL/min/1.73m 54 (L) Hemoglobin A1C 4.3 - 5.6 % 7.4 (H) Estimated Average Glucose mg/dL 166 EKG: a fib @ 79 bpm with premature ventricalar or aberrantly conducted complexes, t wave abnormality, consider lateral ischemia, abnormal EKG. ASSESSMENT/PLAN: 1. Pre-operative clearance - ICD9: V72.84, ICD10: Z01.818 (primary diagnosis) Based on the patient's history, physical, functional status, and ACS risk score, she has an 11% chance of a serious adverse cardiac event. This is above the average risk for her age and the planned operation. She will need further clearance through her cargo and ramp services manager's office and labs/imaging as ordered. - ECG COMPLETE - XR CHEST 2V FRONTAL/LAT 2. Closed fracture of left hip with delayed healing, subsequent encounter - ICD9: V54.13, ICD10: S72.002G S/p nail. Needs total hip replacement per ortho. See above. 3. At high risk for falls - ICD9: V15.88, ICD10: Z91.81 Recommended use of walker/wheelchair to prevent further falls. If she is cleared for surgery, will need PT/OT. Red flags for re-assessment reviewed with patient in detail. 4. AF (paroxysmal atrial fibrillation) ([facility]) - ICD9: 427.31, ICD10: I48.0 Rate controlled on current regimen. Continue anticoagulation and follow up with cardiology. - ECG COMPLETE 5. Chest pain, unspecified type - ICD9: 786.50, ICD10: R07.9 Patient with left sided chest pain in the last week. No pain today. Does have some T wave inversionin th V5 and V6 which is new compared to 2019. Called patient's cargo and ramp services manager office and spoke with Zaid Fish PAPERHANGER AND PAINTER. Discussed EKG findings and he states this is not changed compared to their last EKG 2 months ago. Last cath in 2019 did not show any significant blockage in this area. Recommending she keep f/u as scheduled with their office. Discussed use of nitro for chest pain with patient for recurrent symptoms. Red flags for re-assessment reviewed with patient in detail. 6. Type 2 diabetes mellitus with diabetic neuropathy, with long-term current use of insulin (HCC) -ICD9: 250.60, 357.2, V58.67, ICD10: E11.40, Z79.4 Controlled. - Continue current medications - Blood glucose monitoring on a four times a day schedule - Encouraged regular aerobic exercise and weight loss - Follow up in 3 months, sooner should any other issues arise. - Discussed diabetic education issues of oil heaterman diabetic complications, hypoglycemic symptoms, hyperglycemic symptoms, diet, medications- side effects and need for compliance, importance of exercise, use and side effects of insulin, importance of appointments with Quality Assurance Group Leader, and importance of annual examinations with Opthalmology with patient. - CBC + DIFF - COMP METABOLIC PANEL - HGB A1C 7. Essential hypertension - ICD9: 401.9, ICD10: I10 - good control - Continue current medication(s) - Encouraged dietary sodium restriction/DASH diet - Recommended regular aerobic exercise. - Reviewed risks of HTN and principles of treatment - Goal of BP <130/80 8. Hyperlipidemia, unspecified hyperlipidemia type - ICD9: 272.4, ICD10: E78.5 - to be determined upon return of lab results - Continue current medication. - Encouraged following a low fat, low cholesterol diet. - Discussed the benefits of regular aerobic exercise and weight loss. - LIPID PANEL, NONFASTING 9. Hypothyroidism, acquired - ICD9: 244.9, ICD10: E03.9 - Instructed patient on importance of taking on an empty stomach either first thing in the morning or at bedtime. - check TSH today - continue current dose of Synthroid 0.100 mg - TSH BLD 10. Pulmonary HTN (HCC) - ICD9: 416.8, ICD10: I27.20 Discussed importance of nightly bipap. Continue current regimen. F/u with cardiology. 11. Chronic respiratory failure with hypercapnia (HCC) - ICD9: 518.83, ICD10: J96.12 Continue nightly bipap and continuous oxygen. 12. On home oxygen therapy - ICD9: V46.2, ICD10: Z99.81 See above. 13. Stage 3 chronic kidney disease, unspecified whether stage 3a or 3b CKD (HCC) - ICD9: 585.3, ICD10: N18.30 - eGFR: Stable - Counseled on avoiding regular use of NSAIDs, adequate hydration, potential risk of IV dye - Recommend maintaining A1c < 7% - Recommend maintaining blood pressure under 130/80 - Counseled on renal diet (low sodium/low potassium/low phosphorus) I spent a total of 60 minutes on the date of the service which included preparing to see the patient, [id number] patient care, completing clinical documentation, obtaining and/or reviewing separately obtained history, performing a medically appropriate examination, counseling and educating the pat ient/family/caregiver, ordering medications, tests, or procedures, communicating with other HCPs (not separately reported), independently interpreting results (not separately reported), and communicating results to the patient/family/caregiver. Nanda Oliveira MD documented in this [facility]12-16-2022 Miscellaneous Notes* Telephone Encounter - Uma Blair LPN - 09/06/2022 3:33 PM EST Patient phones requesting refills as follows: Requested Prescriptions Pending Prescriptions Disp Refills levothyroxine (SYNTHROID) 100 mcg tablet 90 tablet 1 Sig: Take 1 tablet by mouth every morning. atorvastatin (LIPITOR) 40 mg tablet 90 tablet 1 Sig: Take 1 tablet by mouth once daily. furosemide (LASIX) 20 mg tablet 180 tablet 1 Sig: Take 1 tablet by mouth twice daily. DULoxetine (CYMBALTA) 60 mg capsule 90 capsule 1 Sig: Take 1 capsule by mouth once daily. CHAUNCEY 07/11/2022 No upcoming appointment scheduled. Please review and advise. Uma Blair LPN * Telephone Encounter - Shira Sheridan Pss - 09/06/2022 2:16 PM EST Patient has been identified by name and date of : Yes Last office visit in this department: Visit date not found RX INSTRUCTIONS: Patient aware RX will be sent to pharmacy. No need to notify patient. Patient phones requesting refills as follows: Requested Prescriptions Pending Prescriptions Disp Refills levothyroxine (SYNTHROID) 100 mcg tablet 90 tablet 1 Sig: Take 1 tablet by mouth every morning. atorvastatin (LIPITOR) 40 mg tablet 90 tablet 1 Sig: Take 1 tablet by mouth once daily. furosemide (LASIX) 20 mg tablet 180 tablet 1 Sig: Take 1 tablet by mouth twice daily. DULoxetine (CYMBALTA) 60 mg capsule 90 capsule 1 Sig: Take 1 capsule by mouth once daily. Please review and advise. Shira Sheridan Pss documented in this [facility] Miscellaneous Notes* Telephone Encounter - Franca Renee LPN - 07/17/2022 4:00 PM EDT Pharmacy calls in requesting the following refill(s): Requested Prescriptions Pending Prescriptions Disp Refills aspirin, enteric coated (ASPIRIN, ENTERIC COATED) 81 mg EC tablet 90 tablet 1 Sig: Take 1 tablet by mouth every morning. allopurinol (ZYLOPRIM) 100 mg tablet 90 tablet 1 Sig: Take 1 tablet by mouth once daily. For gout. omeprazole (PRILOSEC) 40 mg capsule 90 capsule 1 Sig: Take 1 capsule by mouth once daily. Melatonin 5 mg cap 90 capsule 1 Sig: Take 1 capsule by mouth daily at bedtime. ferrous sulfate 325 mg (65 mg iron) tablet 30 tablet 2 Sig: Take 1 tablet by mouth daily with breakfast. documented in this encounterB[facility]10[facility] Miscellaneous Notes* Telephone Encounter - Nanda Oliveira MD - 07/16/2022 2:52 PM EDT Reviewed. Will discuss at upcoming OV. * Telephone Encounter - ARNOLD Norwood - 07/16/2022 2:30 PM EDT [place],[facility] reports that patient reports that she occasionally forgets to take her medications. Notes that this typically happens when she is busy or depressed. [place]a notes thatshe encouraged patient to set reminder to take medications. [place] also reports that patient reports that she feels likeher depression is being managed well. will forward message to Dr. Oliveira for update. documented in this [facility]10-23-2022 Miscellaneous Notes* Telephone Encounter - Nanda Oliveira MD - 07/14/2022 11:46 AM EDT Urine culture is positive for infection. Rx sent to pharmacy for macrobid x 5 days. Called patient to notify and encouraged her to push PO fluids and call if symptoms do not improve. 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 documented in this encounterBrec[facility]ville [facility]10[facility] History of Present illness Narrative* Nanda Oliveira MD - 07/11/2022 3:29 PM EDT Chief Complaint Patient presents with: UTI: Complaints of urgency and frequency Change In Bowel Habits: Patient reports bowels movements w/o her knowing at times and will be incont of stool sometimes multiple x in a day Itching: Reports itchiness all over. Stated she gets full of anxiety even thinking about discussingit. HPI Tamia Panda is a 67 year old female who presents here today for Above Complaints.. C/o urinary frequency, urgency, subrapubic pain x 2-3 weeks. Denies dysuria, hematuria, fever/chills, vomiting, flank pain, vaginal bleeding/discharge. Not taking anything OTC for symptoms. Noted shehad can of Coke with her today, has been drinking 1-2 can per day. Recent A1c was improved at 7.4, but recent sugars have been higher with average sugar of 181 on her freestyle kira. Patient also complains of being incontinent of stool up to 2-3 times per day for almost a year. States that her stools are soft, but not liquid. Small amount of stool during these episodes. Cannot feel when she has the BM with the incontinence, but when she goes to the restroom to defecate she can tell she is having BM. Has to wear 2-3 pads at a time due to this leakage. Denies hematochezia, watery stools, fever. Still complaining of generalized itching with negative workup in March. Taking allen without improvement. Has not been applying moisturizing cream to dry skin. Asking about nystatin powder for underbreasts and in groin. Past medical history, appointments, medications, allergies reviewed. Previous Medical History PAST MEDICAL HISTORY Diagnosis Date Acute chronic obstructive pulmonary disease with respiratory failure AF (paroxysmal atrial fibrillation) ([facility]) Anxiety Arthritis Seeing Dr Elliott Cervical cancer ([facility]) hysterectomy CHF (congestive heart failure) ([facility]) Dr. Ramsey Chronic back pain Seeing Dr. Wallace Chronic respiratory failure with hypercapnia ([facility]) 10/06/2018 [facility], 09/09/2018: 7.38/54.7/77/32.6 on 30% O2. CKD (chronic kidney disease), stage III ([facility]) Constipation Coronary atherosclerosis of [place] coronary artery Cyst of left kidney repeat US 10/2020 DDD (degenerative disc disease), lumbar DM type 2 (diabetes mellitus, type 2) ([facility]) Dr. Lopez for podiatry DVT (deep venous thrombosis) ([facility]) Post op INA, BSO. Dysphagia Seeing Dr. Beaulieu Emphysema lung ([facility]) Essential hypertension Functional dyspepsia Gastroparesis 2017 mild GERD without esophagitis Gout Headache History of colon polyps 11/28/2016 Hyperlipidemia Hyperuricemia Hypothyroidism Incontinence Seeing Dr. Chapman Lung nodule 02/[address] in 3 months Morbid obesity ([facility]) Muscle weakness Nausea Obesity hypoventilation syndrome (HCC) on 2-3 L oxygen continuously PARESH on CPAP [facility] for BiPAP and [facility] for O2. PE (pulmonary thromboembolism) ([facility]) Post op INA/BSO. Pneumonia Pulmonary HTN (HCC) Renal cyst repeat US 10/2020 RLS (restless legs syndrome) Shortness of breath Sleep apnea using oxygen currently, not on CPAP Unsteadiness on feet Vitamin D deficiency Wheezing Previous Surgical History PAST SURGICAL HISTORY Procedure Laterality Date CC PCI CORONARY INTERVENT 2004 CHOLECYSTECTOMY COLONOSCOPY Has had multiple in the past with polyps, cannot remember dates COLSC FLX W/RMVL OF TUMOR POLYP LESION SNARE TQ 11/28/2016 Repeat 2019 EGD TRANSORAL BIOPSY SINGLE/MULTIPLE 11/28/2016 HERNIA REPAIR HX multiple KNEE SURGERY HX Left x3 for torn cartilage NASAL SURGERY PROCEDURE sinus PAST SURGICAL HISTORY OF 01/30/2018 endoscopic per-oral pyloromyotomy TOTAL ABDOM HYSTERECTOMY 1987 Cervical cancer TUBAL LIGATION HX WRIST SURGERY HX Right ganglion cyst removal x2 Family History FAMILY HISTORY Problem Relation Age of Onset Coronary Artery Disease Mother Coronary Artery Disease Father Asthma Brother Coronary Artery Disease Brother Diabetes Sister Hypertension Sister Diabetes Sister Heart Sister Allergies Sister Asthma Sister Allergies Sister Emphysema Sister Early stages COPD Paternal Uncle Patient Allergies ALLERGIES Allergen Reactions Adhesive Tape (Adrienne* Intolerance Surgical tape leaves rash Irritates skin badly and blisters along with medical tape Cats Other: See Comments Congested and itchy, difficulty breathing Dogs Other: See Comments Congestion, sneezing, and difficulty breathing Orphenadrine Unknown Capsaicin Itching Ciprofloxacin Other: See Comments Red, hot, itchy rash Keflex [Cephalexin] Hives Negative skin testing and [...] after 30 minutes, proceed with regular dosing. Niacin Unknown Pt states its niacin its niaspan Reglan [Metoclopram* Other: See Comments Unable to sleep Xanthines Unknown Zofran [Ondansetron* Itching Current Medications Current Outpatient Medications on File Prior to Visit Medication Sig insulin glargine (LANTUS SOLOSTAR U-100 INSULIN) 100 unit/mL (3 mL) Inject 42 units subcutaneously twice daily albuterol HFA (PROAIR HFA) 90 mcg/actuation inhaler Inhale 2 Puffs as instructed every 4 hours as needed for wheezing/shortness of breath. apixaban (ELIQUIS) 2.5 mg tab(s) Take 1 tablet by mouth twice daily. busPIRone (BUSPAR) 10 mg tablet Take one tablet in the AM, one tablet in the afternoon and 1.5 tablets in the evening insulin needles, DISPOSABLE, (ULTICARE PEN NEEDLE) 31 gauge x 5/16 USE DIRECTED. TO INJECT INSULINS ferrous sulfate 325 mg (65 mg iron) tablet Take 1 tablet by mouth daily with breakfast. alendronate (FOSAMAX) 70 mg tablet Take 1 tablet by mouth one time a week. Take with a full glass of water, on an empty stomach; do NOT lie down for 30minutes. Cholecalciferol, Vitamin D3, (VITAMIN D-3) 50 mcg (2,000 unit) cap Take 1 capsule by mouth once daily. DULoxetine (CYMBALTA) 60 mg capsule Take 1 capsule by mouth once daily. furosemide (LASIX) 20 mg tablet Take 1 tablet by mouth twice daily. ascorbic acid, vitamin C, (VITAMIN C) 500 mg tablet Take 1 tablet by mouth once daily. atorvastatin (LIPITOR) 40 mg tablet Take 1 tablet by mouth once daily. fexofenadine (ALLEN ALLERGY) 180 mg tablet Take 1 tablet by mouth once daily. levothyroxine (SYNTHROID) 100 mcg tablet Take 1 tablet by mouth every morning. insulin lispro (HUMALOG KWIKPEN INSULIN) 200 unit/mL (3 mL) injection Inject subcutaneously 14 units with breakfast, 16 units with lunch, and 24 units with dinner aspirin, enteric coated (ASPIRIN, ENTERIC COATED) 81 mg EC tablet Take 1 tablet by mouth every morning. allopurinol (ZYLOPRIM) 100 mg tablet Take 1 tablet by mouth once daily. For gout. omeprazole (PRILOSEC) 40 mg capsule Take 1 capsule by mouth once daily. Melatonin 5 mg cap Take 1 capsule by mouth daily at bedtime. cyclobenzaprine (FLEXERIL) 10 mg tablet Take 1 tablet by mouth twice daily as needed for muscle spasm. potassium chloride (K-TAB) 10 mEq tablet Take 1 tablet by mouth daily with breakfast. BIPAP Bilevel PAP 16/12 cmH2O with 2 LPM oxygen bleed in, mask, tubing, filters, heated humidity, lifetime supplies. Dx: G47.33, G47.39. docusate sodium (STOOL SOFTENER) 100 mg capsule Take 1 capsule by mouth twice daily as needed for constipation. metoprolol tartrate, short acting, (LOPRESSOR) 50 mg tablet Take 1.5 tablets by mouth twice daily. acyclovir (ZOVIRAX) 400 mg tablet Take 1 tablet by mouth three times daily. for 5 days prn outbreaks (Patient not taking: Reported on 07/04/2022) lidocaine (XYLOCAINE) 5 % ointment Apply to affected area as needed. use a small amount to affectedarea qid prn pain alcohol swabs UAD to clean skin before testing blood sugar and injecting insulins. Facial Mask misc 1 Device once daily. Oxygen mask to be worn daily for history of hypoxia. nitroglycerin sublingual (NITROQUICK) 0.4 mg SL tablet DISSOLVE 1 TAB UNDER THE TONGUE NEEDED FOR CHEST PAIN EVERY 5 MINUTES UP TO 3 TIMES. IF NO RELIEF CALL 911. blood sugar diagnostic ([employer]CH ULTRA BLUE TEST STRIP) test strip USE DIRECTED TO CHECK BLOOD SUGAR 4-5 TIMES DAILY, E11.9 isosorbide mononitrate ER (IMDUR) 120 mg 24 hr tablet TAKE 1 TABLETS BY MOUTH EVERY MORNING - (120mg daily) COMPOUNDED PRESCRIPTION Pulse oximetry to be used PRN for SOB for COPD DX:J96.12 promethazine (PHENERGAN) 25 mg tablet Take 1 tablet by mouth every 8 hours as needed (for nausea). lancets ([employer] DELICA LANCETS) 30 gauge misc USE TO CHECK BLOOD SUGAR 4-5 TIMES DAILY, E11.9 fluorometholone (FML LIQUID FILM) 0.1 % ophthalmic suspension 1 Drop every 4 hours. flash glucose scanning reader (ElixrSTYLE KIRA 14 DAY READER) misc Use to check blood sugars 4-5 times per day Dx: Type 2 diabetes mellitus treated with insulin E11.9 flash glucose sensor (FREESTYLE KIRA 14 DAY SENSOR) kit Use to check blood sugars 4-5 times per day. Dx: Type 2 diabetes mellitus treated with insulin E11.9 glucose 4 gram chewable tablet TAKE 4 TABLETS BY MOUTH NEEDED FOR LOW BLOOD SUGAR. COMPOUNDED PRESCRIPTION Please fit for BiPAP mask. COMPOUNDED PRESCRIPTION OCD Titration for portable oxygen concentrator Oxygen Flow Rate between 2-6liters. To keep oxygen saturation at or above 92%. OXYGEN, HOME THERAPY, Inhale 3 L/min as instructed as directed. COMPOUNDED PRESCRIPTION Evaluation for diabetic shoes and inserts Dx: E11.65, Z79.4 Incontinence Pad, Liner, Disp pads 1 Device as needed (urinary incontinence). Prevail incontinence pads. Dx: urinary incontinence. Size: small Blood-Glucose Meter ([employer]sUCH ULTRA2) monitoring kit UAD to test blood sugar No current facility-administered medications on file prior to visit. Social History Social History Tobacco Use Smoking status: Former Packs/day: 1.00 Years: 28.00 Pack years: 28.00 Types: Cigarettes Start date: 1978 Quit date: 09/22/2005 Years since quittin.8 Smokeless tobacco: Never Tobacco comments: Father smoked in childhood. 2nd spouse smoked in home. Substance Use Topics Alcohol use: No Drug use: No Review of Symptoms REVIEW OF SYSTEMS See HPI EXAM: BP 110/66 Pulse 72 Resp 18 SpO2 98% General Appearance: Well appearing, alert, in no acute distress, well-hydrated, well nourished.. Skin: Mild kalin rash in left groin and under left breast. Lungs: Lungs clear to auscultation. No wheezing, rhonchi, rales.. Heart: RRR without murmur, gallop, or rubs. No ectopy. Abdomen: Abdomen soft. Bowel sounds normal. No masses, organomegaly, Negative CVA tenderness, Positive findings: tenderness mild generalized. Extremities: No deformities, edema, skin discoloration, clubbing or cyanosis. Good capillary refill. . Health Maintenance List SHINGRIX VACCINE(2 of 3) due on 03/11/2017 ADVANCE DIRECTIVE DISCUSSION Never done COLORECTAL CANCER SCREENING due on 11/29/2021 MAMMOGRAM due on 12/28/2021 DILATED RETINAL EXAM due on 04/02/2022 HBA1C due on 01/02/2023 URINE ALBUMIN:CREATININE RATIO due on 03/01/2023 LDL CHOLESTEROL due on 03/01/2023 DIABETIC FOOT EXAM due on 03/01/2023 ANNUAL PCP TEAM CHRONIC DISEASE VISIT due on 07/04/2023 SERUM CREATININE due on 07/04/2023 HEMOGLOBIN/HEMATOCRIT due on 07/04/2023 BP CONTROLLED (<130/80) due on 07/04/2023 DTAP,TDAP,TD(2 - Td or Tdap) due on 10/02/2026 BONE DENSITY Completed INFLUENZA Completed HEPATITIS C SCREENING Completed COVID-19 VACCINE Completed PNEUMOCOCCAL: 65+ Completed Data reviewed Component Latest Ref Rng & Units 07/04/2022 WBC 3.70 - 11.00 k/uL 5.57 RBC 3.90 - 5.20 m/uL 4.01 Hemoglobin 11.5 - 15.5 g/dL 11.9 Hematocrit 36.0 - 46.0 % 38.4 MCV 80.0 - 100.0 fL 95.8 MCH 26.0 - 34.0 pg 29.7 MCHC 30.5 - 36.0 g/dL 31.0 RDW-CV 11.5 - 15.0 % 14.7 Platelet Count 150 - 400 k/uL 169 MPV 9.0 - 12.7 fL 10.5 Neut% % 68.0 Abs Neut (ANC) 1.45 - 7.50 k/uL 3.79 Lymph% % 16.2 Abs Lymph 1.00 - 4.00 k/uL 0.90 (L) Winn% % 9.7 Abs Winn <0.87 k/uL 0.54 Eosin% % 5.2 Abs Eosin <0.46 k/uL 0.29 Baso% % 0.5 Abs Baso <0.11 k/uL 0.03 Immature Gran % % 0.4 IMMATURE GRANS (ABS) <0.10 k/uL <0.03 NRBC /100 WBC 0.0 Absolute nRBC <0.01 k/uL <0.01 DTYPE Auto Protein, Total 6.3 - 8.0 g/dL 6.8 Albumin 3.9 - 4.9 g/dL 3.7 (L) Calcium 8.5 - 10.2 mg/dL 9.0 Bilirubin, Total 0.2 - 1.3 mg/dL 0.7 Alkaline Phosphatase 34 - 123 U/L 68 AST 13 - 35 U/L 14 ALT 7 - 38 U/L 8 Glucose 74 - 99 mg/dL 87 BUN 7 - 21 mg/dL 11 Creatinine 0.58 - 0.96 mg/dL 1.12 (H) Sodium 136 - 144 mmol/L 143 Potassium 3.7 - 5.1 mmol/L 3.7 Chloride 97 - 105 mmol/L 101 CO2 22 - 30 mmol/L 31 (H) Anion Gap 9 - 18 mmol/L 11 eGFR >=60 mL/min/1.73m 54 (L) Hemoglobin A1C 4.3 - 5.6 % 7.4 (H) Estimated Average Glucose mg/dL 166 ASSESSMENT/PLAN: 1. Urinary incontinence, unspecified type - ICD9: 788.30, ICD10: R32 (primary diagnosis) Possible UTI vs uncontrolled DM. Will send urine for culture and call with results. Push PO fluids.Work on DM diet. Red flags for re-assessment reviewed with patient in detail. - UA DIP, URINE (POC) 2. Urinary frequency - ICD9: 788.41, ICD10: R35.0 - URINE CULTURE 3. Type 2 diabetes mellitus with diabetic neuropathy, with long-term current use of insulin (HCC) -ICD9: 250.60, 357.2, V58.67, ICD10: E11.40, Z79.4 Controlled with A1c. 7.4. Will send in rx for test strips. Continue current regimen, work on DM diet. F/u as scheduled. 4. Incontinence of feces, unspecified fecal incontinence type - ICD9: 787.60, ICD10: R15.9 Advised to start on fiber supplement to bulk up stools and referred to GI for manometry and furtherworkup. - CONSULT TO GASTROENTEROLOGY 5. Itching - ICD9: 698.9, ICD10: L29.9 Previous workup negative. Suspect 2/2 kalin. Will give rx for nystatin powder for PRN use. Discussed keeping folds of skin dry to prevent rash. 6. Candidal intertrigo - ICD9: 112.3, ICD10: B37.2 Given rx for nystatin powder to be used as directed for rash. Nanda Oliveira MD [facility] History of Present illness Narrative* Nanda Oliveira MD - 07/04/2022 11:54 AM EDT Chief Complaint Patient presents with: Follow Up HPI Tamia Panda is a 67 year old female who presents here today for Above Complaints.. Patient is due for repeat A1C to follow up on DM. Last check was more than 3 months ago and elevated at 8. Taking insulin as prescribed. Did not bring readings today. Denies recent hypolgycemic episodes. Asking about results from Dr. Coles's office. Patient had LILLIAN and follow up with vascular for her dusky toes. LILLIAN normal. Recommended PRN follow up with vascular. Has appointment on 07/16 with podiatry for DM foot exam. Needs nails trimmed. Patient had follow up appointment with cardiology on 06/12 without change to regimen. Was in a fib at that appointment and questioned if this was persistent. Taking her Eliquis as prescribed and notesconstant leakage of blood from her nose when she wipes it. Small amount of bleeding on tissue paper. Last episode yesterday. Has been evaluated recently by Dr. Howard who told her to use nasal saline spray instead of flonase. Does not have follow up scheduled. Due for repeat CBC to monitor anemia. Past medical history, appointments, medications, allergies reviewed. Previous Medical History PAST MEDICAL HISTORY Diagnosis Date Acute chronic obstructive pulmonary disease with respiratory failure AF (paroxysmal atrial fibrillation) (HCC) Anxiety Arthritis Seeing Dr Elliott Cervical cancer (HCC) hysterectomy CHF (congestive heart failure) (HCC) Dr. Ramsey Chronic back pain Seeing Dr. Wallace Chronic respiratory failure with hypercapnia (HCC) 10/06/2018 [facility], 09/09/2018: 7.38/54.7/77/32.6 on 30% O2. CKD (chronic kidney disease), stage III (HCC) Constipation Coronary atherosclerosis of [place] coronary artery Cyst of left kidney repeat US 10/2020 DDD (degenerative disc disease), lumbar DM type 2 (diabetes mellitus, type 2) (HCC) Dr. Lopez for podiatry DVT (deep venous thrombosis) ([facility]) Post op INA, BSO. Dysphagia Seeing Dr. Beaulieu Emphysema lung ([facility]) Essential hypertension Functional dyspepsia Gastroparesis 2017 mild GERD without esophagitis Gout Headache History of colon polyps 11/28/2016 Hyperlipidemia Hyperuricemia Hypothyroidism Incontinence Seeing Dr. Chapman Lung nodule 02/[address] in 3 months Morbid obesity (HCC) Muscle weakness Nausea Obesity hypoventilation syndrome (HCC) on 2-3 L oxygen continuously PARESH on CPAP [facility] for BiPAP and [facility] for O2. PE (pulmonary thromboembolism) (HCC) Post op INA/BSO. Pneumonia Pulmonary HTN (HCC) Renal cyst repeat US 10/2020 RLS (restless legs syndrome) Shortness of breath Sleep apnea using oxygen currently, not on CPAP Unsteadiness on feet Vitamin D deficiency Wheezing Previous Surgical History PAST SURGICAL HISTORY Procedure Laterality Date CC PCI CORONARY INTERVENT 2004 CHOLECYSTECTOMY COLONOSCOPY Has had multiple in the past with polyps, cannot remember dates COLSC FLX W/RMVL OF TUMOR POLYP LESION SNARE TQ 11/28/2016 Repeat 2019 EGD TRANSORAL BIOPSY SINGLE/MULTIPLE 11/28/2016 HERNIA REPAIR HX multiple KNEE SURGERY HX Left x3 for torn cartilage NASAL SURGERY PROCEDURE sinus PAST SURGICAL HISTORY OF 01/30/2018 endoscopic per-oral pyloromyotomy TOTAL ABDOM HYSTERECTOMY 1988 Cervical cancer TUBAL LIGATION HX WRIST SURGERY HX Right ganglion cyst removal x2 Family History FAMILY HISTORY Problem Relation Age of Onset Coronary Artery Disease Mother Coronary Artery Disease Father Asthma Brother Coronary Artery Disease Brother Diabetes Sister Hypertension Sister Diabetes Sister Heart Sister Allergies Sister Asthma Sister Allergies Sister Emphysema Sister Early stages COPD Paternal Uncle Patient Allergies ALLERGIES Allergen Reactions Adhesive Tape (Adrienne* Intolerance Surgical tape leaves rash Irritates skin badly and blisters along with medical tape Cats Other: See Comments Congested and itchy, difficulty breathing Dogs Other: See Comments Congestion, sneezing, and difficulty breathing Orphenadrine Unknown Capsaicin Itching Ciprofloxacin Other: See Comments Red, hot, itchy rash Keflex [Cephalexin] Hives Negative skin testing and [...] after 30 minutes, proceed with regular dosing. Niacin Unknown Pt states its niacin its niaspan Reglan [Metoclopram* Other: See Comments Unable to sleep Xanthines Unknown Zofran [Ondansetron* Itching Current Medications Current Outpatient Medications on File Prior to Visit Medication Sig insulin glargine (LANTUS SOLOSTAR U-100 INSULIN) 100 unit/mL (3 mL) Inject 42 units subcutaneously twice daily albuterol HFA (PROAIR HFA) 90 mcg/actuation inhaler Inhale 2 Puffs as instructed every 4 hours as needed for wheezing/shortness of breath. apixaban (ELIQUIS) 2.5 mg tab(s) Take 1 tablet by mouth twice daily. busPIRone (BUSPAR) 10 mg tablet Take one tablet in the AM, one tablet in the afternoon and 1.5 tablets in the evening insulin needles, DISPOSABLE, (ULTICARE PEN NEEDLE) 31 gauge x 5/16 USE DIRECTED. TO INJECT INSULINS ferrous sulfate 325 mg (65 mg iron) tablet Take 1 tablet by mouth daily with breakfast. alendronate (FOSAMAX) 70 mg tablet Take 1 tablet by mouth one time a week. Take with a full glass of water, on an empty stomach; do NOT lie down for 30minutes. Cholecalciferol, Vitamin D3, (VITAMIN D-3) 50 mcg (2,000 unit) cap Take 1 capsule by mouth once daily. DULoxetine (CYMBALTA) 60 mg capsule Take 1 capsule by mouth once daily. furosemide (LASIX) 20 mg tablet Take 1 tablet by mouth twice daily. ascorbic acid, vitamin C, (VITAMIN C) 500 mg tablet Take 1 tablet by mouth once daily. atorvastatin (LIPITOR) 40 mg tablet Take 1 tablet by mouth once daily. fexofenadine (ALLEN ALLERGY) 180 mg tablet Take 1 tablet by mouth once daily. levothyroxine (SYNTHROID) 100 mcg tablet Take 1 tablet by mouth every morning. insulin lispro (HUMALOG KWIKPEN INSULIN) 200 unit/mL (3 mL) injection Inject subcutaneously 14 units with breakfast, 16 units with lunch, and 24 units with dinner aspirin, enteric coated (ASPIRIN, ENTERIC COATED) 81 mg EC tablet Take 1 tablet by mouth every morning. allopurinol (ZYLOPRIM) 100 mg tablet Take 1 tablet by mouth once daily. For gout. omeprazole (PRILOSEC) 40 mg capsule Take 1 capsule by mouth once daily. Melatonin 5 mg cap Take 1 capsule by mouth daily at bedtime. cyclobenzaprine (FLEXERIL) 10 mg tablet Take 1 tablet by mouth twice daily as needed for muscle spasm. potassium chloride (K-TAB) 10 mEq tablet Take 1 tablet by mouth daily with breakfast. BIPAP Bilevel PAP 16/12 cmH2O with 2 LPM oxygen bleed in, mask, tubing, filters, heated humidity, lifetime supplies. Dx: G47.33, G47.39. docusate sodium (STOOL SOFTENER) 100 mg capsule Take 1 capsule by mouth twice daily as needed for constipation. metoprolol tartrate, short acting, (LOPRESSOR) 50 mg tablet Take 1.5 tablets by mouth twice daily. acyclovir (ZOVIRAX) 400 mg tablet Take 1 tablet by mouth three times daily. for 5 days prn outbreaks (Patient not taking: Reported on 06/04/2022) lidocaine (XYLOCAINE) 5 % ointment Apply to affected area as needed. use a small amount to affectedarea qid prn pain alcohol swabs UAD to clean skin before testing blood sugar and injecting insulins. Facial Mask misc 1 Device once daily. Oxygen mask to be worn daily for history of hypoxia. nitroglycerin sublingual (NITROQUICK) 0.4 mg SL tablet DISSOLVE 1 TAB UNDER THE TONGUE NEEDED FOR CHEST PAIN EVERY 5 MINUTES UP TO 3 TIMES. IF NO RELIEF CALL 911. blood sugar diagnostic ([employer]sUCH ULTRA BLUE TEST STRIP) test strip USE DIRECTED TO CHECK BLOOD SUGAR 4-5 TIMES DAILY, E11.9 isosorbide mononitrate ER (IMDUR) 120 mg 24 hr tablet TAKE 1 TABLETS BY MOUTH EVERY MORNING - (120mg daily) COMPOUNDED PRESCRIPTION Pulse oximetry to be used PRN for SOB for COPD DX:J96.12 promethazine (PHENERGAN) 25 mg tablet Take 1 tablet by mouth every 8 hours as needed (for nausea). lancets ([employer] DELICA LANCETS) 30 gauge misc USE TO CHECK BLOOD SUGAR 4-5 TIMES DAILY, E11.9 fluorometholone (FML LIQUID FILM) 0.1 % ophthalmic suspension 1 Drop every 4 hours. (Patient not taking: Reported on 06/04/2022) flash glucose scanning reader (ElixrSTYLE KIRA 14 DAY READER) misc Use to check blood sugars 4-5 times per day Dx: Type 2 diabetes mellitus treated with insulin E11.9 flash glucose sensor (FREESTYLE KIRA 14 DAY SENSOR) kit Use to check blood sugars 4-5 times per day. Dx: Type 2 diabetes mellitus treated with insulin E11.9 glucose 4 gram chewable tablet TAKE 4 TABLETS BY MOUTH NEEDED FOR LOW BLOOD SUGAR. COMPOUNDED PRESCRIPTION Please fit for BiPAP mask. COMPOUNDED PRESCRIPTION OCD Titration for portable oxygen concentrator Oxygen Flow Rate between 2-6liters. To keep oxygen saturation at or above 92%. OXYGEN, HOME THERAPY, Inhale 3 L/min as instructed as directed. COMPOUNDED PRESCRIPTION Evaluation for diabetic shoes and inserts Dx: E11.65, Z79.4 Incontinence Pad, Liner, Disp pads 1 Device as needed (urinary incontinence). Prevail incontinence pads. Dx: urinary incontinence. Size: small Blood-Glucose Meter ([employer]CH ULTRA2) monitoring kit UAD to test blood sugar No current facility-administered medications on file prior to visit. Social History Social History Tobacco Use Smoking status: Former Packs/day: 1.00 Years: 28.00 Pack years: 28.00 Types: Cigarettes Start date: 1978 Quit date: 09/22/2005 Years since quittin.7 Smokeless tobacco: Never Tobacco comments: Father smoked in childhood. 2nd spouse smoked in home. Substance Use Topics Alcohol use: No Drug use: No Review of Symptoms REVIEW OF SYSTEMS GENERAL: No weight loss, malaise or fevers RESPIRATORY: Negative for cough, hemoptysis, wheezing, COPD, dyspnea or shortness of breath CARDIOVASCULAR: Negative for chest pain, leg swelling, hypertension, CHF or palpitations GI: No nausea, vomiting, or diarrhea EXAM: BP 126/70 Pulse 70 Resp 20 SpO2 98% General Appearance: Well appearing, alert, in no acute distress, well-hydrated, well nourished.. Skin: Skin color, texture, turgor normal, no suspicious rashes or lesions. Nose/Sinuses: Nares normal, septum midline, mucosa normal, no drainage or sinus tenderness. No epistaxis. Lungs: Lungs clear to auscultation. No wheezing, rhonchi, rales.. Heart: Negative findings: no murmurs, clicks, or gallops, Positive findings: irregularly irregular rhythm. Abdomen: Normal abdominal exam, Abdomen soft, non-tender. Bowel sounds normal. No masses, organomegaly. Extremities: No deformities, edema, skin discoloration, clubbing or cyanosis. Good capillary refill. . Health Maintenance List SHINGRIX VACCINE(2 of 3) due on 03/11/2017 ADVANCE DIRECTIVE DISCUSSION Never done COLORECTAL CANCER SCREENING due on 11/29/2021 MAMMOGRAM due on 12/28/2021 COVID-19 VACCINE(4 - Booster for Pfizer series) due on 01/08/2022 DILATED RETINAL EXAM due on 04/02/2022 INFLUENZA(1) due on 05/23/2022 HBA1C due on 06/01/2022 URINE ALBUMIN:CREATININE RATIO due on 03/01/2023 LDL CHOLESTEROL due on 03/01/2023 DIABETIC FOOT EXAM due on 03/01/2023 SERUM CREATININE due on 03/01/2023 HEMOGLOBIN/HEMATOCRIT due on 04/04/2023 ANNUAL PCP TEAM CHRONIC DISEASE VISIT due on 05/01/2023 BP CONTROLLED (<130/80) due on 06/04/2023 DTAP,TDAP,TD(2 - Td or Tdap) due on 10/02/2026 BONE DENSITY Completed HEPATITIS C SCREENING Completed PNEUMOCOCCAL: 65+ Completed Data reviewed Component Latest Ref Rng & Units 03/01/2022 04/04/2022 WBC 3.70 - 11.00 k/uL 7.56 8.03 RBC 3.90 - 5.20 m/uL 3.06 (L) 4.00 Hemoglobin 11.5 - 15.5 g/dL 8.8 (L) 11.3 (L) Hematocrit 36.0 - 46.0 % 29.2 (L) 37.8 MCV 80.0 - 100.0 fL 95.4 94.5 MCH 26.0 - 34.0 pg 28.8 28.3 MCHC 30.5 - 36.0 g/dL 30.1 (L) 29.9 (L) RDW-CV 11.5 - 15.0 % 14.3 15.9 (H) Platelet Count 150 - 400 k/uL 232 258 MPV 9.0 - 12.7 fL 11.1 10.5 Neut% % 70.9 Abs Neut (ANC) 1.45 - 7.50 k/uL 5.69 Lymph% % 13.7 Abs Lymph 1.00 - 4.00 k/uL 1.10 Winn% % 10.3 Abs Winn <0.87 k/uL 0.83 Eosin% % 4.5 Abs Eosin <0.46 k/uL 0.36 Baso% % 0.4 Abs Baso <0.11 k/uL 0.03 Immature Gran % % 0.2 IMMATURE GRANS (ABS) <0.10 k/uL <0.03 NRBC /100 WBC 0.0 Absolute nRBC <0.01 k/uL 0.05 (H) <0.01 DTYPE Auto Protein, Total 6.3 - 8.0 g/dL 7.2 Albumin 3.9 - 4.9 g/dL 3.6 (L) Calcium 8.5 - 10.2 mg/dL 9.2 Bilirubin, Total 0.2 - 1.3 mg/dL 0.6 Alkaline Phosphatase 34 - 123 U/L 69 AST 13 - 35 U/L 8 (L) ALT 7 - 38 U/L 7 Glucose 74 - 99 mg/dL 310 (H) BUN 7 - 21 mg/dL 20 Creatinine 0.58 - 0.96 mg/dL 1.15 (H) Sodium 136 - 144 mmol/L 138 Potassium 3.7 - 5.1 mmol/L 4.6 Chloride 97 - 105 mmol/L 102 CO2 22 - 30 mmol/L 24 Anion Gap 9 - 18 mmol/L 12 eGFR >=60 mL/min/1.73m 52 (L) Total Cholesterol, Nonfasting <200 mg/dL 131 Triglycerides, Nonfasting <150 mg/dL 185 (H) HDL Cholesterol, Nonfasting >39 mg/dL 36 (L) LDL Cholesterol, Nonfasting <100 mg/dL 58 Non HDL Cholesterol, Nonfasting <130 mg/dL 95 VLDL Cholesterol, Nonfasting <30 mg/dL 37 (H) Total Chol/HDL Ratio, Nonfasting <5.10 mg/dL 3.64 LDL/HDL Ratio, Nonfasting <2.54 mg/dL 1.61 Creatinine, Ur Random (UCRR) 20.0 - 300.0 mg/dL 99.1 Albumin, Urine Random mg/L 34.9 Albumin/Creat Ratio <30 mg/g 35 (H) Iron 41 - 186 ug/dL 81 TIBC 232 - 386 ug/dL 325 Transferrin Saturation 15.0 - 57.0 % 24.9 Hemoglobin A1C 4.3 - 5.6 % 8.0 (H) Estimated Average Glucose mg/dL 183 TSH 0.270 - 4.200 mIU/L 0.972 Ferritin 14.7 - 205.1 ng/mL 60.1 ASSESSMENT/PLAN: 1. Type 2 diabetes mellitus with diabetic neuropathy, with long-term current use of insulin ([facility]) -ICD9: 250.60, 357.2, V58.67, ICD10: E11.40, Z79.4 (primary diagnosis) Patient did not bring readings today. Continue current regimen and will check A1C. Follow up in 3-4weeks for 40 minute visit to discuss DM and other complaints. - HGB A1C - COMP METABOLIC PANEL 2. Epistaxis - ICD9: 784.7, ICD10: R04.0 Normal exam today. Recheck CBC and continue nasal saline rinses. If symptoms persist, f/u with ENT. 3. Anemia, unspecified type - ICD9: 285.9, ICD10: D64.9 - CBC + DIFF 4. Essential hypertension - ICD9: 401.9, ICD10: I10 - good control - Continue current medication(s) - Encouraged dietary sodium restriction/DASH diet - Recommended regular aerobic exercise. - Reviewed risks of HTN and principles of treatment - Goal of BP <130/80 5. AF (paroxysmal atrial fibrillation) (HCC) - ICD9: 427.31, ICD10: I48.0 Irregular rhythm which is rate controlled today. Continue regimen per cardiology and keep follow upas scheduled. 6. Need for influenza vaccination - ICD9: V04.81, ICD10: Z23 - INFLUENZA SEASONAL QUADRIVALENT HIGH DOSE AGE 65+ 7. Need for COVID-19 vaccine - ICD9: V04.89, ICD10: Z23 - PFIZER-BIONTECH COVID-19 BIVALENT BOOSTER VACCINE, AGE 12+ YR Nanda Oliveira MD documented in this encounterBrecksville [facility]10-[facility] Miscellaneous Notes* Telephone Encounter - Monique Montoya LPN - 07/01/2022 2:03 PM EDT Patient has been identified by name and date of : Yes Patient phones for refill(s): Requested Prescriptions Pending Prescriptions Disp Refills insulin glargine (LANTUS SOLOSTAR U-100 INSULIN) 100 unit/mL (3 mL) 15 Each 5 Sig: Inject 42 units subcutaneously twice daily Date of last office visit in primary care: 05/01/2022 Appt: 07/04/2022 Last 2 Encounter Wt Readings: Date: Wt: 05/01/2022 87.5 kg (193 lb) 11/19/2021 88.6 kg (195 lb 6.4 oz) Previous labs/tests for medication: Diabetes: Hemoglobin A1C (%) Date Value 03/01/2022 8.0 11/13/2021 6.1 12/07/2020 6.3 Hemoglobin A1C (POCT) (%) Date Value 05/25/2021 6.0 Please advise. Thank you. Monique Montoya LPN documented in this encounterBrecksville [facility]09-30-2022 Miscellaneous Notes* Telephone Encounter - Franca Renee LPN - 06/21/2022 11:18 AM EDT Pharmacy calls in requesting the following refill(s): Requested Prescriptions Pending Prescriptions Disp Refills albuterol HFA (PROAIR HFA) 90 mcg/actuation inhaler 18 g 2 Sig: Inhale 2 Puffs as instructed every 4 hours as needed for wheezing/shortness of breath. apixaban (ELIQUIS) 2.5 mg tab(s) 60 tablet 2 Sig: Take 1 tablet by mouth twice daily. busPIRone (BUSPAR) 10 mg tablet 105 tablet 3 Sig: Take one tablet in the AM, one tablet in the afternoon and 1.5 tablets in the evening documented in this encounterBrecksville [facility]09-21-2022 Miscellaneous Notes* Telephone Encounter - Shira Atkinson - 06/12/2022 9:20 AM EDT Katja Coles, LAURENT Wolf; [facility] [place] [facility] Her PVRs are normal. Circulation to her feet looks good. No significant blockages identified [employer] Networkshart message sent to patient * Telephone Encounter - LAURENT Deras - 06/11/2022 10:48 AM EDT Patient calling, she does not have transportation to make it to appointment today. She called requesting a call back with her results. documented in this encounterBrecksville [facility]09-20-2022 Miscellaneous Notes* Telephone Encounter - Shira Atkinson - 06/11/2022 11:15 AM EDT Addressed in another message Encounter closed * Telephone Encounter - Megan Buck RN - 06/11/2022 10:40 AM EDT Patient called [facility] triage line, left VM stating she was trying to reach the [place] office. Attempted to return call, but VM box is full. documented in this encounterBrecksville [facility]09-13-2022 History of Present illness Narrative* Katja Pierce Sharyn, DO - 06/04/2022 11:29 AM EDT Images from the original note were not included. Heart , V[facility] [place] DEPARTMENT OF VASCULAR SURGERY OUTPATIENT VISIT DATE June 04, 2022 OUTPATIENT VISIT TYPE CONSULTATION SERVICE DATE: 06/04/2022 SERVICE TIME: 11:30 AM PRIMARY CARE PHYSICIAN: Nanda Oliveira MD REFERRING PROVIDER: Nanda Oliveira [id number] [facility] [id number] Consult requested for an opinion regarding the evaluation and treatment of the above. My final impression and recommendations will be communicated back to the requesting physician by way of the shared medical record or letter via US mail. CHIEF COMPLAINT: Lower extremity pain, foot discoloration HISTORY OF PRESENT ILLNESS: Vascular consultation at the request of Dr. Nanda Oliveira. A copy of this consultation notewill be provided to the requesting physician by way of shared Medical record or letter to requesting physician via US mail. Ms. Panda is a 67 year old female who is seen today for bilateral lower extremity pain and discomfort. States has been ongoing for years. She states her feet burn and will turn colors- red to purple. She also admits to intermittent swelling of her ankles. States she ambulates minimally because of the pain. She has a remote history of DVT and PE following surgery in the 80s. 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 Ramsey Chronic back pain Seeing Dr. Wallace Chronic respiratory failure with hypercapnia ([facility]) 10/06/2018 [facility], 09/09/2018: 7.38/54.7/77/32.6 on 30% O2. CKD (chronic kidney disease), stage III ([facility]) Constipation Coronary atherosclerosis of [place] coronary artery Cyst of left kidney repeat US 10/2020 DDD (degenerative disc disease), lumbar DM type 2 (diabetes mellitus, type 2) ([facility]) Dr. Lopez for podiatry DVT (deep venous thrombosis) (HCC) Post op INA, BSO. Dysphagia Seeing Dr. Beaulieu Emphysema lung (HCC) Essential hypertension Functional dyspepsia Gastroparesis 2016 mild GERD without esophagitis Gout Headache History of colon polyps 11/28/2016 Hyperlipidemia Hyperuricemia Hypothyroidism Incontinence Seeing Dr. Chapman Lung nodule 02/[address] in 3 months Morbid obesity (HCC) Muscle weakness Nausea Obesity hypoventilation syndrome (HCC) on 2-3 L oxygen continuously PARESH on CPAP [facility] for BiPAP and [facility] for O2. PE (pulmonary thromboembolism) (HCC) Post op INA/BSO. Pneumonia Pulmonary HTN (HCC) Renal cyst repeat US 10/2020 RLS (restless legs syndrome) Shortness of breath Sleep apnea using oxygen currently, not on CPAP Unsteadiness on feet Vitamin D deficiency Wheezing PAST SURGICAL HISTORY Procedure Laterality Date CC PCI CORONARY INTERVENT 2003 CHOLECYSTECTOMY COLONOSCOPY Has had multiple in the past with polyps, cannot remember dates COLSC FLX W/RMVL OF TUMOR POLYP LESION SNARE TQ 11/28/2016 Repeat 2019 EGD TRANSORAL BIOPSY SINGLE/MULTIPLE 11/28/2016 HERNIA REPAIR HX multiple KNEE SURGERY HX Left x3 for torn cartilage NASAL SURGERY PROCEDURE sinus PAST SURGICAL HISTORY OF 01/30/2018 endoscopic per-oral pyloromyotomy TOTAL ABDOM HYSTERECTOMY 1988 Cervical cancer TUBAL LIGATION HX WRIST SURGERY HX Right ganglion cyst removal x2 SOCIAL HISTORY: Social History Tobacco Use Smoking status: Former Packs/day: 1.00 Years: 28.00 Pack years: 28.00 Types: Cigarettes Start date: 1978 Quit date: 09/22/2005 Years since quittin.7 Smokeless tobacco: Never Tobacco comments: Father smoked in childhood. 2nd spouse smoked in home. Substance Use Topics Alcohol use: No Drug use: No FAMILY HISTORY Problem Relation Age of Onset Coronary Artery Disease Mother Coronary Artery Disease Father Asthma Brother Coronary Artery Disease Brother Diabetes Sister Hypertension Sister Diabetes Sister Heart Sister Allergies Sister Asthma Sister Allergies Sister Emphysema Sister Early stages COPD Paternal Uncle MEDICATIONS: insulin needles, DISPOSABLE, (ULTICARE PEN NEEDLE) 31 gauge x 02/04 USE DIRECTED. TO INJECT INSULINS ferrous sulfate 325 mg (65 mg iron) tablet Take 1 tablet by mouth daily with breakfast. alendronate (FOSAMAX) 70 mg tablet Take 1 tablet by mouth one time a week. Take with a full glass of water, on an empty stomach; do NOT lie down for 30minutes. albuterol HFA (PROAIR HFA) 90 mcg/actuation inhaler Inhale 2 Puffs as instructed every 4 hours as needed for wheezing/shortness of breath. apixaban (ELIQUIS) 2.5 mg tab(s) Take 1 tablet by mouth twice daily. Cholecalciferol, Vitamin D3, (VITAMIN D-3) 50 mcg (2,000 unit) cap Take 1 capsule by mouth once daily. insulin glargine (LANTUS SOLOSTAR U-100 INSULIN) 100 unit/mL (3 mL) Inject 42 units subcutaneously twice daily DULoxetine (CYMBALTA) 60 mg capsule Take 1 capsule by mouth once daily. furosemide (LASIX) 20 mg tablet Take 1 tablet by mouth twice daily. busPIRone (BUSPAR) 10 mg tablet Take one tablet in the AM, one tablet in the afternoon and 1.5 tablets in the evening ascorbic acid, vitamin C, (VITAMIN C) 500 mg tablet Take 1 tablet by mouth once daily. atorvastatin (LIPITOR) 40 mg tablet Take 1 tablet by mouth once daily. fexofenadine (ALLEN ALLERGY) 180 mg tablet Take 1 tablet by mouth once daily. levothyroxine (SYNTHROID) 100 mcg tablet Take 1 tablet by mouth every morning. insulin lispro (HUMALOG KWIKPEN INSULIN) 200 unit/mL (3 mL) injection Inject subcutaneously 14 units with breakfast, 16 units with lunch, and 24 units with dinner aspirin, enteric coated (ASPIRIN, ENTERIC COATED) 81 mg EC tablet Take 1 tablet by mouth every morning. allopurinol (ZYLOPRIM) 100 mg tablet Take 1 tablet by mouth once daily. For gout. omeprazole (PRILOSEC) 40 mg capsule Take 1 capsule by mouth once daily. Melatonin 5 mg cap Take 1 capsule by mouth daily at bedtime. cyclobenzaprine (FLEXERIL) 10 mg tablet Take 1 tablet by mouth twice daily as needed for muscle spasm. potassium chloride (K-TAB) 10 mEq tablet Take 1 tablet by mouth daily with breakfast. BIPAP Bilevel PAP 16/12 cmH2O with 2 LPM oxygen bleed in, mask, tubing, filters, heated humidity, lifetime supplies. Dx: G47.33, G47.39. docusate sodium (STOOL SOFTENER) 100 mg capsule Take 1 capsule by mouth twice daily as needed for constipation. metoprolol tartrate, short acting, (LOPRESSOR) 50 mg tablet Take 1.5 tablets by mouth twice daily. lidocaine (XYLOCAINE) 5 % ointment Apply to affected area as needed. use a small amount to affectedarea qid prn pain alcohol swabs UAD to clean skin before testing blood sugar and injecting insulins. Facial Mask misc 1 Device once daily. Oxygen mask to be worn daily for history of hypoxia. nitroglycerin sublingual (NITROQUICK) 0.4 mg SL tablet DISSOLVE 1 TAB UNDER THE TONGUE NEEDED FOR CHEST PAIN EVERY 5 MINUTES UP TO 3 TIMES. IF NO RELIEF CALL 911. blood sugar diagnostic (HealthyOut ULTRA BLUE TEST STRIP) test strip USE DIRECTED TO CHECK BLOOD SUGAR 4-5 TIMES DAILY, E11.9 isosorbide mononitrate ER (IMDUR) 120 mg 24 hr tablet TAKE 1 TABLETS BY MOUTH EVERY MORNING - (120mg daily) COMPOUNDED PRESCRIPTION Pulse oximetry to be used PRN for SOB for COPD DX:J96.12 promethazine (PHENERGAN) 25 mg tablet Take 1 tablet by mouth every 8 hours as needed (for nausea). lancets (HealthyOut DELICA LANCETS) 30 gauge misc USE TO CHECK BLOOD SUGAR 4-5 TIMES DAILY, E11.9 flash glucose scanning reader (FREESTYLE KIRA 14 DAY READER) misc Use to check blood sugars 4-5 times per day Dx: Type 2 diabetes mellitus treated with insulin E11.9 flash glucose sensor (FREESTYLE KIRA 14 DAY SENSOR) kit Use to check blood sugars 4-5 times per day. Dx: Type 2 diabetes mellitus treated with insulin E11.9 glucose 4 gram chewable tablet TAKE 4 TABLETS BY MOUTH NEEDED FOR LOW BLOOD SUGAR. COMPOUNDED PRESCRIPTION Please fit for BiPAP mask. COMPOUNDED PRESCRIPTION OCD Titration for portable oxygen concentrator Oxygen Flow Rate between 2-6liters. To keep oxygen saturation at or above 92%. OXYGEN, HOME THERAPY, Inhale 3 L/min as instructed as directed. COMPOUNDED PRESCRIPTION Evaluation for diabetic shoes and inserts Dx: E11.65, Z79.4 Incontinence Pad, Liner, Disp pads 1 Device as needed (urinary incontinence). Prevail incontinence pads. Dx: urinary incontinence. Size: small Blood-Glucose Meter (HealthyOut ULTRA2) monitoring kit UAD to test blood sugar acyclovir (ZOVIRAX) 400 mg tablet Take 1 tablet by mouth three times daily. for 5 days prn outbreaks (Patient not taking: Reported on 06/04/2022) fluorometholone (FML LIQUID FILM) 0.1 % ophthalmic suspension 1 Drop every 4 hours. (Patient not taking: Reported on 06/04/2022) ALLERGIES: ALLERGIES Allergen Reactions Adhesive Tape (Adrienne* Intolerance Surgical tape leaves rash Irritates skin badly and blisters along with medical tape Cats Other: See Comments Congested and itchy, difficulty breathing Dogs Other: See Comments Congestion, sneezing, and difficulty breathing Orphenadrine Unknown Capsaicin Itching Ciprofloxacin Other: See Comments Red, hot, itchy rash Keflex [Cephalexin] Hives Negative skin testing and [...] after 30 minutes, proceed with regular dosing. Niacin Unknown Pt states its niacin its niaspan Reglan [Metoclopram* Other: See Comments Unable to sleep Xanthines Unknown Zofran [Ondansetron* Itching REVIEW OF SYSTEM: Constitutional: No weight loss, malaise or fevers. HEENT: Head Positive for headache , Ears Positive for hearing loss, Nose Positive for nosebleeds Respiratory: Positive for shortness of breath on exertion and coughs, may be aspirating food/drink Cardiovascular: Positive for palpitations Gatrointestinal: Positive for gastroperisis Genitourinary: Positive for frequency and incontinence Musculoskeletal: Positive for back pain and joint pain Endocrine: Positive for cold intolerance Hematology/Lymphatic: Negative for prolonged bleeding, bruising easily or swollen nodes Neurologic: Negative for syncope and paralysis and Positive for tremor Integumentary: Positive for itching PHYSICAL EXAM: VITALS: There were no vitals taken for this visit. General: Alert and oriented Integumentary: Normal color, no rash, no lesions. HEENT: EOM, pupils equal, round and reactive. Cardiovascular: Pulse regular. Lungs: No chest deformities or chest wall tenderness. Abdomen: Not examined Extremities: No deformity, no edema or tenderness, no joint swelling or clubbing. Neurological: Normal cognition and motor skills. Vascular: palpable radial pulses, palpable pt bilaterally, dopplerable dp/pt/digital signals Diagnostic tests reviewed for today's visit: Most recent labs Most recent imaging IMPRESSION: Ms. Panda is a 67 year old female with foot discoloration and lower extremity pain . PLAN and RECOMMENDATIONS: Will get vascular lab testing Encouraged activity as tolerated Recommend blood pressure and cholesterol control, continue current medications Follow up after testing SIGNATURE: Katja Coles DO PATIENT NAME: Tamia Panda DATE: June 04, 2022 TIME: 11:30 AM documented in this encounterBrecksville [facility]09-08-2022 Miscellaneous Notes* Telephone Encounter - Samantha Campbell Pss - 05/30/2022 9:52 AM EDT 1st attempt unable to leave a message as VM is full. Sent my chart message. * Telephone Encounter - Shira Atkinson - 05/29/2022 10:11 AM EDT Please call patient to schedule PVR prior to appt with Dr. Coles on 06/04/22 Appt may need moved d/t testing availability Thank you documented in this encounterBrecksville [facility]08-31-2022 Miscellaneous Notes* Telephone Encounter - Cindi Munoz RN - 05/22/2022 8:46 AM EDT Patient has been identified by name and date of : Yes Pharmacy phones for refill(s): Requested Prescriptions Pending Prescriptions Disp Refills insulin needles, DISPOSABLE, (ULTICARE PEN NEEDLE) 31 gauge x 5/16 200 Each 5 Sig: USE DIRECTED. TO INJECT INSULINS Date of last office visit with pcp: 05-01-22 Last 2 Encounter Wt Readings: Date: Wt: 05/01/2022 87.5 kg (193 lb) 11/19/2021 88.6 kg (195 lb 6.4 oz) Previous labs/tests for medication: Diabetes: Hemoglobin A1C (%) Date Value 03/01/2022 8.0 11/13/2021 6.1 12/07/2020 6.3 Hemoglobin A1C (POCT) (%) Date Value 05/25/2021 6.0 Please advise. Thank you. Cindi Munoz RN documented in this encounterBrecksville [facility]08-11-2022 Miscellaneous Notes* Telephone Encounter - Irene Palacios LPN - 05/02/2022 11:39 AM EDT PCP discussed with patient at 05/01/22 OV * Telephone Encounter - Uma Blair LPN - 04/09/2022 12:19 PM EDT Letter sent to patient to contact our office for multiple results. Uma Blair LPN * Telephone Encounter - Irene Palacios LPN - 04/05/2022 11:02 AM EDT ----- Message from Nanda Oliveira MD sent at 04/05/2022 8:04 AM EDT ----- Improving anemia. Normal iron and thyroid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 D deficiency Wheezing Previous Surgical History PAST SURGICAL HISTORY Procedure Laterality Date CC PCI CORONARY INTERVENT 2003 CHOLECYSTECTOMY COLONOSCOPY Has had multiple in the past with polyps, cannot remember dates COLSC FLX W/RMVL OF TUMOR POLYP LESION SNARE TQ 11/28/2016 Repeat 2019 EGD TRANSORAL BIOPSY SINGLE/MULTIPLE 11/28/2016 HERNIA REPAIR HX multiple KNEE SURGERY HX Left x3 for torn cartilage NASAL SURGERY PROCEDURE sinus PAST SURGICAL HISTORY OF 01/30/2018 endoscopic per-oral pyloromyotomy TOTAL ABDOM HYSTERECTOMY 1988 Cervical cancer TUBAL LIGATION HX WRIST SURGERY HX Right ganglion cyst removal x2 Family History FAMILY HISTORY Problem Relation Age of Onset Coronary Artery Disease Mother Coronary Artery Disease Father Asthma Brother Coronary Artery Disease Brother Diabetes Sister Hypertension Sister Diabetes Sister Heart Sister Allergies Sister Asthma Sister Allergies Sister Emphysema Sister Early stages COPD Paternal Uncle Patient Allergies ALLERGIES Allergen Reactions Adhesive Tape (Adrienne* Intolerance Surgical tape leaves rash Irritates skin badly and blisters along with medical tape Cats Other: See Comments Congested and itchy, difficulty breathing Dogs Other: See Comments Congestion, sneezing, and difficulty breathing Orphenadrine Unknown Capsaicin Itching Ciprofloxacin Other: See Comments Red, hot, itchy rash Keflex [Cephalexin] Hives Negative skin testing and [...] after 30 minutes, proceed with regular dosing. Niacin Unknown Pt states its niacin its niaspan Reglan [Metoclopram* Other: See Comments Unable to sleep Xanthines Unknown Zofran [Ondansetron* Itching Current Medications Current Outpatient Medications on File Prior to Visit Medication Sig DULoxetine (CYMBALTA) 60 mg capsule Take 1 capsule by mouth once daily. furosemide (LASIX) 20 mg tablet Take 1 tablet by mouth twice daily. busPIRone (BUSPAR) 10 mg tablet Take one tablet in the AM, one tablet in the afternoon and 1.5 tablets in the evening ascorbic acid, vitamin C, (VITAMIN C) 500 mg tablet Take 1 tablet by mouth once daily. atorvastatin (LIPITOR) 40 mg tablet Take 1 tablet by mouth once daily. fexofenadine (ALLEN ALLERGY) 180 mg tablet Take 1 tablet by mouth once daily. levothyroxine (SYNTHROID) 100 mcg tablet Take 1 tablet by mouth every morning. ferrous sulfate 325 mg (65 mg iron) tablet Take 1 tablet by mouth daily with breakfast. insulin lispro (HUMALOG KWIKPEN INSULIN) 200 unit/mL (3 mL) injection Inject subcutaneously 14 units with breakfast, 16 units with lunch, and 24 units with dinner insulin glargine (LANTUS SOLOSTAR U-100 INSULIN) 100 unit/mL (3 mL) Inject 38 units subcutaneously twice daily aspirin, enteric coated (ASPIRIN, ENTERIC COATED) 81 mg EC tablet Take 1 tablet by mouth every morning. allopurinol (ZYLOPRIM) 100 mg tablet Take 1 tablet by mouth once daily. For gout. omeprazole (PRILOSEC) 40 mg capsule Take 1 capsule by mouth once daily. Melatonin 5 mg cap Take 1 capsule by mouth daily at bedtime. apixaban (ELIQUIS) 2.5 mg tab tab(s) Take 1 tablet by mouth twice daily. cyclobenzaprine (FLEXERIL) 10 mg tablet Take 1 tablet by mouth twice daily as needed for muscle spasm. potassium chloride (K-TAB) 10 mEq tablet Take 1 tablet by mouth daily with breakfast. BIPAP Bilevel PAP 16/12 cmH2O with 2 LPM oxygen bleed in, mask, tubing, filters, heated humidity, lifetime supplies. Dx: G47.33, G47.39. docusate sodium (STOOL SOFTENER) 100 mg capsule Take 1 capsule by mouth twice daily as needed for constipation. insulin needles, DISPOSABLE, (ULTICARE PEN NEEDLE) 31 gauge x 516 USE DIRECTED. TO INJECT INSULINS alendronate (FOSAMAX) 70 mg tablet Take 1 tablet by mouth one time a week. Take with a full glass of water, on an empty stomach; do NOT lie down for 30minutes. albuterol HFA (PROAIR HFA) 90 mcg/actuation inhaler Inhale 2 Puffs as instructed every 4 hours as needed for wheezing/shortness of breath. Cholecalciferol, Vitamin D3, (VITAMIN D-3) 50 mcg (2,000 unit) cap Take 1 capsule by mouth once daily. acyclovir (ZOVIRAX) 400 mg tablet Take 1 tablet by mouth three times daily. for 5 days prn outbreaks lidocaine (XYLOCAINE) 5 % ointment Apply to affected area as needed. use a small amount to affectedarea qid prn pain ANTI-FUNGAL 2 % powder APPLY TOPICALLY TO AFFECTED AREA TWICE A DAY NEEDED FOR ITCHING/RASH alcohol swabs UAD to clean skin before testing blood sugar and injecting insulins. Facial Mask misc 1 Device once daily. Oxygen mask to be worn daily for history of hypoxia. nitroglycerin sublingual (NITROQUICK) 0.4 mg SL tablet DISSOLVE 1 TAB UNDER THE TONGUE NEEDED FOR CHEST PAIN EVERY 5 MINUTES UP TO 3 TIMES. IF NO RELIEF CALL 911. blood sugar diagnostic ([employer] Designs[employer]CH ULTRA BLUE TEST STRIP) test strip USE DIRECTED TO CHECK BLOOD SUGAR 4-5 TIMES DAILY, E11.9 isosorbide mononitrate ER (IMDUR) 120 mg 24 hr tablet TAKE 1 TABLETS BY MOUTH EVERY MORNING - (120mg daily) COMPOUNDED PRESCRIPTION Pulse oximetry to be used PRN for SOB for COPD DX:J96.12 promethazine (PHENERGAN) 25 mg tablet Take 1 tablet by mouth every 8 hours as needed (for nausea). lancets ([employer]sUCH DELICA LANCETS) 30 gauge misc USE TO CHECK BLOOD SUGAR 4-5 TIMES DAILY, E11.9 fluorometholone (FML LIQUID FILM) 0.1 % ophthalmic suspension 1 Drop every 4 hours. flash glucose scanning reader (FREESTYLE KIRA 14 DAY READER) misc Use to check blood sugars 4-5 times per day Dx: Type 2 diabetes mellitus treated with insulin E11.9 flash glucose sensor (FREESTYLE KIRA 14 DAY SENSOR) kit Use to check blood sugars 4-5 times per day. Dx: Type 2 diabetes mellitus treated with insulin E11.9 glucose 4 gram chewable tablet TAKE 4 TABLETS BY MOUTH NEEDED FOR LOW BLOOD SUGAR. COMPOUNDED PRESCRIPTION Please fit for BiPAP mask. COMPOUNDED PRESCRIPTION OCD Titration for portable oxygen concentrator Oxygen Flow Rate between 2-6liters. To keep oxygen saturation at or above 92%. OXYGEN, HOME THERAPY, Inhale 3 L/min as instructed as directed. COMPOUNDED PRESCRIPTION Evaluation for diabetic shoes and inserts Dx: E11.65, Z79.4 Incontinence Pad, Liner, Disp pads 1 Device as needed (urinary incontinence). Prevail incontinence pads. Dx: urinary incontinence. Size: small Blood-Glucose Meter (ONETOUCH ULTRA2) monitoring kit UAD to test blood sugar metoprolol tartrate, short acting, (LOPRESSOR) 50 mg tablet Take 1.5 tablets by mouth twice daily. No current facility-administered medications on file prior to visit. Social History Social History Tobacco Use Smoking status: Former Smoker Packs/day: 1.00 Years: 28.00 Pack years: 28.00 Types: Cigarettes Start date: 1978 Quit date: 09/22/2005 Years since quittin.5 Smokeless tobacco: Never Used Tobacco comment: Father smoked in childhood. 2nd spouse smoked in home. Substance Use Topics Alcohol use: No Drug use: No Review of Symptoms REVIEW OF SYSTEMS GENERAL: No weight loss, malaise or fevers RESPIRATORY: Negative for cough, hemoptysis, wheezing, COPD, dyspnea or shortness of breath CARDIOVASCULAR: Negative for chest pain, leg swelling, hypertension, CHF or palpitations GI: No nausea, vomiting, or diarrhea SKIN: Negative for lesions, rash, and itching EXAM: BP 130/72 Pulse 78 Resp 20 SpO2 97% General Appearance: Well appearing, alert, in no acute distress, well-hydrated, well nourished.. Skin: Skin color, texture, turgor normal, no suspicious rashes or lesions. Nose: no apparent bleeding today without packing. Lungs: Lungs clear to auscultation. No wheezing, rhonchi, rales.. Heart: RRR without murmur, gallop, or rubs. No ectopy. Abdomen: Abdomen soft. Bowel sounds normal. No masses, organomegaly, Positive findings: tenderness mild generalized which is chronic. Extremities: No edema Feet: Shoes and socks removed, abnormal pulses Absent bilaterally and Toes on both feet are dusky with poor sensation to light touch and are cold compared to rest of her foot. Health Maintenance List SHINGRIX VACCINE(2 of 3) due on 03/11/2017 ADVANCE DIRECTIVE DISCUSSION Never done COLORECTAL CANCER SCREENING due on 11/29/2021 MAMMOGRAM due on 12/28/2021 COVID-19 VACCINE(4 - Booster for Pfizer series) due on 03/13/2022 DILATED RETINAL EXAM due on 04/02/2022 INFLUENZA(1) due on 05/23/2022 BP CONTROLLED (<130/80) due on 05/25/2022 HBA1C due on 06/01/2022 URINE ALBUMIN:CREATININE RATIO due on 03/01/2023 LDL CHOLESTEROL due on 03/01/2023 DIABETIC FOOT EXAM due on 03/01/2023 ANNUAL PCP TEAM CHRONIC DISEASE VISIT due on 03/01/2023 SERUM CREATININE due on 03/01/2023 HEMOGLOBIN/HEMATOCRIT due on 03/01/2023 DTAP,TDAP,TD(2 - Td or Tdap) due on 10/02/2026 BONE DENSITY Completed HEPATITIS C SCREENING Completed PNEUMOCOCCAL: 65+ Completed Data reviewed Component Latest Ref Rng & Units 03/01/2022 Protein, Total 6.3 - 8.0 g/dL 7.2 Albumin 3.9 - 4.9 g/dL 3.6 (L) Calcium 8.5 - 10.2 mg/dL 9.2 Bilirubin, Total 0.2 - 1.3 mg/dL 0.6 Alkaline Phosphatase 34 - 123 U/L 69 AST 13 - 35 U/L 8 (L) ALT 7 - 38 U/L 7 Glucose 74 - 99 mg/dL 310 (H) BUN 7 - 21 mg/dL 20 Creatinine 0.58 - 0.96 mg/dL 1.15 (H) Sodium 136 - 144 mmol/L 138 Potassium 3.7 - 5.1 mmol/L 4.6 Chloride 97 - 105 mmol/L 102 CO2 22 - 30 mmol/L 24 Anion Gap 9 - 18 mmol/L 12 eGFR >=60 mL/min/1.73m 52 (L) WBC 3.70 - 11.00 k/uL 7.56 RBC 3.90 - 5.20 m/uL 3.06 (L) Hemoglobin 11.5 - 15.5 g/dL 8.8 (L) Hematocrit 36.0 - 46.0 % 29.2 (L) MCV 80.0 - 100.0 fL 95.4 MCH 26.0 - 34.0 pg 28.8 MCHC 30.5 - 36.0 g/dL 30.1 (L) RDW-CV 11.5 - 15.0 % 14.3 Platelet Count 150 - 400 k/uL 232 MPV 9.0 - 12.7 fL 11.1 Absolute nRBC <0.01 k/uL 0.05 (H) Total Cholesterol, Nonfasting <200 mg/dL 131 Triglycerides, Nonfasting <150 mg/dL 185 (H) HDL Cholesterol, Nonfasting >39 mg/dL 36 (L) LDL Cholesterol, Nonfasting <100 mg/dL 58 Non HDL Cholesterol, Nonfasting <130 mg/dL 95 VLDL Cholesterol, Nonfasting <30 mg/dL 37 (H) Total Chol/HDL Ratio, Nonfasting <5.10 mg/dL 3.64 LDL/HDL Ratio, Nonfasting <2.54 mg/dL 1.61 Creatinine, Ur Random (UCRR) 20.0 - 300.0 mg/dL 99.1 Albumin, Urine Random mg/L 34.9 Albumin/Creat Ratio <30 mg/g 35 (H) Hemoglobin A1C 4.3 - 5.6 % 8.0 (H) Estimated Average Glucose mg/dL 183 Component Latest Ref Rng & Units 03/29/2022 GLUCOSE UA (POCT) Negative mg/dL Negative BILIRUBIN UA (POCT) Negative Negative KETONE UA (POCT) Negative mg/dL Negative SPECIFIC GRAVITY UA (POCT) 1.005 - 1.030 1.015 HEMOGLOBIN/BLOOD UA (POCT) Negative Negative PH UA (POCT) 4.5 - 8.0 7.0 PROTEIN UA (POCT) Negative mg/dL Negative UROBILINOGEN UA (POCT) Normal E.U./dL 1.0 NITRITE UA (POCT) Negative Negative LEUKOCYTES UA (POCT) Negative Negative COLOR UA (POCT) Yellow CLARITY UA (POCT) Slightly Cloudy ASSESSMENT/PLAN: 1. Dusky feet - ICD9: 782.9, ICD10: R23.8 (primary diagnosis) Unchanged in the last month. Discussed importance of follow up with podiatry or vascular and needs to complete her LILLIAN. Red flags for re-assessment reviewed with patient in detail. - CONSULT TO VASCULAR SURGERY 2. Type 2 diabetes mellitus with diabetic neuropathy, with long-term current use of insulin (HCC) -ICD9: 250.60, 357.2, V58.67, ICD10: E11.40, Z79.4 poorly controlled - Increase Lantus 42 units BID - Blood glucose monitoring on a four times a day schedule - Encouraged regular aerobic exercise and weight loss - Daily Asprin therapy recommended - Follow up in 1 months, sooner should any other issues arise. - Discussed diabetic education issues of oil heaterman diabetic complications, hypoglycemic symptoms, hyperglycemic symptoms, diet, medications- side effects and need for compliance, importance of exercise, use and side effects of insulin, importance of appointments with Quality Assurance Group Leader and importance of annual examinations with Opthalmology with patient. - INSULIN GLARGINE (U-100) 100 UNIT/ML (3 ML) SUBCUTANEOUS PEN 3. Urinary frequency - ICD9: 788.41, ICD10: R35.0 UA normal. Suspect this is 2/2 uncontrolled DM. See above. - UA DIP, URINE (POC) 4. Essential hypertension - ICD9: 401.9, ICD10: I10 - good control - Continue current medication(s) - Encouraged dietary sodium restriction/DASH diet - Recommended regular aerobic exercise. - Reviewed risks of HTN and principles of treatment - Goal of BP <140/90 5. Epistaxis - ICD9: 784.7, ICD10: R04.0 Resolved. Recheck blood counts and iron levels. 6. 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 - ICD9: V69.8, ICD10: Z72.89 Obtain urine drug screen. Will be contacting Adult Protective Services again. Discussed dangers of letting her son sell drug out of her home. Encouraged she seek alternative living situation. - TOX SCREEN ROUT UR - PAIN PANEL, UR QUANT - PAIN PANEL, UR QUANT - SPECIMEN VALIDITY, URINE Nanda Oliveira MD documented [facility] Miscellaneous Notes* Telephone Encounter - Nanda Oliveira MD - 03/28/2022 10:17 AM EDT Patient has appointment with me tomorrow. Will re-evaluate then. * Telephone Encounter - Uma Blair LPN - 03/20/2022 9:21 AM EDT Both home phoned and cell called, unable to leave a message on either. * Telephone Encounter - Katie Mckeon APRN.CNP - 03/20/2022 9:11 AM EDT Try to reach out to her again and see if she will answer. Katie Mckeon APRN.LILY * Telephone Encounter - Uma Blair LPN - 03/20/2022 9:04 AM EDT Patient no showed 03/18 podiatry appointment. Has appointment with Dr. Oliveira on 03/29/22. * Telephone Encounter - Nanda Oliveira MD - 03/15/2022 9:23 AM EDT Reviewed, hopefully she keeps appointment on 03/18 as scheduled. * Telephone Encounter - Anna Rivera RN - 03/15/2022 8:29 AM EDT Attempted to call pt. No answer/ no voicemail set up. Several attempts have been made to contact this patient unsuccessfully. Pt. is scheduled to see Dr. Cifuentes on 03/18/22 at 1:45pm. Anna Rivera RN * Telephone Encounter - Anna Rivera RN - 03/12/2022 8:40 AM EDT Attempted to call pt. home and cell phones. No answer and no voicemail setup. Anna Rivera RN * Telephone Encounter - Chuyita Pearson RN - 03/04/2022 4:59 PM EDT Patient referred to Dr. Cifuentes by Dr. Oliveira for cold, purple toes. Attempted to contact patientto further discuss on both phone numbers but home phone rang busy and mobile number's VM box was full. Will try again later. IF patient does not have feeling in toes and toes are painful or turning darker than they were at Dr. Oliveira's office patient will need to be evaluated urgently at the ED. documented in this encounterB[facility] Miscellaneous Notes* Telephone Encounter - Jori Serna Ma - 03/12/2022 12:32 PM EDT Mychart sent. Closing encounter after several unsuccessful attempts. * Telephone Encounter - Irene Palacios LPN - 03/07/2022 12:43 PM EDT Letter sent to patient with request for her to call office for results and recommendations. * Telephone Encounter - Pao Zaragoza MA - 03/07/2022 9:48 AM EDT Attempted to reach patient. Unable to reach home phone continues to ring. Mobile rings then goes toVM that is full. Attempted to reach EC son Avery. Unable to reach. Left message to contact office or to have patient contact office. Please read PCP note below. aPo Zaragoza MA * Telephone Encounter - Uma Blair LPN - 03/06/2022 8:39 AM EDT No answer. Unable to leave message, no voicemail. * Telephone Encounter - Irene Palacios LPN - 03/05/2022 2:39 PM EDT Called patients home phone with no answer or VM. Also tried Mobile number and line immediately rings busy each call. * Telephone Encounter - Lynne Harris Ma - 03/05/2022 9:34 AM EDT No answer, no voicemail. * Telephone Encounter - Nanda Oliveira MD - 03/04/2022 4:17 PM EDT Patient with a significant drop in her red blood cells on these labs which is likely related to hernosebleeds. Any bleeding over the weekend? Recommend starting her on iron daily and rechecking in 2-3 weeks. Cholesterol in good range. Kidney function stable. Diabetes poorly controlled with a1C of 8. Continue increased dose of Lantus at 38 units BID and bring sugars with her on 03/29. documented in this encounterB[facility]06[facility] History of Present illness Narrative* Nanda Oliveira MD - 03/01/2022 3:34 PM EDT Chief Complaint Patient presents with: Follow Up: 3 month HPI Tamia Panda is a 67 year old female who presents here today for 3 month follow up. Since her last OV, patient is complaining of 2-3 days of bilateral epistaxis requiring ER evaluation on 02/23. Told the ER that she just usually lets the bleeding run its course and will stop on its own. Denied digital trauma. Nares packed with Aftrin soaked cotton balls and compression applied. Still had bleeding so repacked her nares with Materhs mix soaked cotton balls and applied compression. Treated with transexamic acid and bleeding stopped. CBC showed mild anemia at 11.2, otherwise unremarkable. Small anterior packing placed and was discharged home with referral to Dr. Howard. Had appointment yesterday who removed packing from her nose and cleaned out her nose. Did not require cautery per patient. Advised to stop her flonase and coat with petroleum jelly to keep nares from getting too dry. Discussed using pressure to stop recurrent bleeding. No bleeding since that time. DIABETES MELLITUS: Ms. Panda was last seen 3 months ago. Since our last visit she denies excessive thirst or increased frequency of urination, numbness, tingling or pain in extremities and new or unusual visual symptoms. Rare low sugars when she misses a meal. Follows a diabetic diet probably noncomplaint although I cannot elucidate specific history. Son is bringing her donuts regularly. Patient has been out of her Humalog for the last week. She reports checking her glucose on a 4 times a day schedule with Graphicly kira with frequent readings in the high 200's and 300's. Average sugar in thelast 30 days: 212. Patient's last HgA1C was Hemoglobin A1C (%) Date Value 11/13/2021 6.1 12/07/2020 6.3 Hemoglobin A1C (POCT) (%) Date Value 05/25/2021 6.0 ) Last Ophthalmology exam was within the past 12 months Last Podiatry exam was within the past 12 months Past medical history, appointments, medications, allergies reviewed. Previous Medical History PAST MEDICAL HISTORY Diagnosis Date Acute chronic obstructive pulmonary disease with respiratory failure AF (paroxysmal atrial fibrillation) ([facility]) Anxiety Arthritis Seeing Dr Elliott Cervical cancer ([facility]) hysterectomy CHF (congestive heart failure) ([facility]) Dr. Ramsey Chronic back pain Seeing Dr. Wallace Chronic respiratory failure with hypercapnia ([facility]) 10/06/2018 [facility], 09/09/2018: 7.38/54.7/77/32.6 on 30% O2. CKD (chronic kidney disease), stage III ([facility]) Constipation Coronary atherosclerosis of [place] coronary artery Cyst of left kidney repeat US 10/2020 DDD (degenerative disc disease), lumbar DM type 2 (diabetes mellitus, type 2) ([facility]) Dr. Lopez for podiatry DVT (deep venous thrombosis) ([facility]) Post op INA, BSO. Dysphagia Seeing Dr. Beaulieu Emphysema lung ([facility]) Essential hypertension Functional dyspepsia Gastroparesis 2017 mild GERD without esophagitis Gout Headache History of colon polyps 11/28/2016 Hyperlipidemia Hyperuricemia Hypothyroidism Incontinence Seeing Dr. Chapman Lung nodule 02/[address] in 3 months Morbid obesity (HCC) Muscle weakness Nausea Obesity hypoventilation syndrome (HCC) on 2-3 L oxygen continuously PARESH on CPAP DME [facility] for BiPAP and [facility] [place] for O2. PE (pulmonary thromboembolism) (HCC) Post op INA/BSO. Pneumonia Pulmonary HTN (HCC) Renal cyst repeat US 10/2020 RLS (restless legs syndrome) Shortness of breath Sleep apnea using oxygen currently, not on CPAP Unsteadiness on feet Vitamin D deficiency Wheezing Previous Surgical History PAST SURGICAL HISTORY Procedure Laterality Date CC PCI CORONARY INTERVENT 2003 CHOLECYSTECTOMY COLONOSCOPY Has had multiple in the past with polyps, cannot remember dates COLSC FLX W/RMVL OF TUMOR POLYP LESION SNARE TQ 11/28/2016 Repeat 2019 EGD TRANSORAL BIOPSY SINGLE/MULTIPLE 11/28/2016 HERNIA REPAIR HX multiple KNEE SURGERY HX Left x3 for torn cartilage NASAL SURGERY PROCEDURE sinus PAST SURGICAL HISTORY OF 01/30/2018 endoscopic per-oral pyloromyotomy TOTAL ABDOM HYSTERECTOMY 1988 Cervical cancer TUBAL LIGATION HX WRIST SURGERY HX Right ganglion cyst removal x2 Family History FAMILY HISTORY Problem Relation Age of Onset Coronary Artery Disease Mother Coronary Artery Disease Father Asthma Brother Coronary Artery Disease Brother Diabetes Sister Hypertension Sister Diabetes Sister Heart Sister Allergies Sister Asthma Sister Allergies Sister Emphysema Sister Early stages COPD Paternal Uncle Patient Allergies ALLERGIES Allergen Reactions Adhesive Tape (Adrienne* Intolerance Surgical tape leaves rash Irritates skin badly and blisters along with medical tape Cats Other: See Comments Congested and itchy, difficulty breathing Dogs Other: See Comments Congestion, sneezing, and difficulty breathing Orphenadrine Unknown Capsaicin Itching Ciprofloxacin Other: See Comments Red, hot, itchy rash Keflex [Cephalexin] Hives Negative skin testing and [...] after 30 minutes, proceed with regular dosing. Niacin Unknown Pt states its niacin its niaspan Reglan [Metoclopram* Other: See Comments Unable to sleep Xanthines Unknown Zofran [Ondansetron* Itching Current Medications Current Outpatient Medications on File Prior to Visit Medication Sig aspirin, enteric coated (ASPIRIN, ENTERIC COATED) 81 mg EC tablet Take 1 tablet by mouth every morning. fluticasone (FLONASE) 50 mcg/actuation nasal spray Use 2 Sprays in each nostril once daily. allopurinol (ZYLOPRIM) 100 mg tablet Take 1 tablet by mouth once daily. For gout. omeprazole (PRILOSEC) 40 mg capsule Take 1 capsule by mouth once daily. Melatonin 5 mg cap Take 1 capsule by mouth daily at bedtime. apixaban (ELIQUIS) 2.5 mg tab tab(s) Take 1 tablet by mouth twice daily. cyclobenzaprine (FLEXERIL) 10 mg tablet Take 1 tablet by mouth twice daily as needed for muscle spasm. potassium chloride (K-TAB) 10 mEq tablet Take 1 tablet by mouth daily with breakfast. BIPAP Bilevel PAP 16/12 cmH2O with 2 LPM oxygen bleed in, mask, tubing, filters, heated humidity, lifetime supplies. Dx: G47.33, G47.39. docusate sodium (STOOL SOFTENER) 100 mg capsule Take 1 capsule by mouth twice daily as needed for constipation. insulin glargine (LANTUS SOLOSTAR U-100 INSULIN) 100 unit/mL (3 mL) Inject 34 units subcutaneously twice daily insulin needles, DISPOSABLE, (ULTICARE PEN NEEDLE) 31 gauge x 5/16 USE DIRECTED. TO INJECT INSULINS busPIRone (BUSPAR) 10 mg tablet Take one tablet in the AM, one tablet in the afternoon and 1.5 tablets in the evening alendronate (FOSAMAX) 70 mg tablet Take 1 tablet by mouth one time a week. Take with a full glass of water, on an empty stomach; do NOT lie down for 30minutes. albuterol HFA (PROAIR HFA) 90 mcg/actuation inhaler Inhale 2 Puffs as instructed every 4 hours as needed for wheezing/shortness of breath. Cholecalciferol, Vitamin D3, (VITAMIN D-3) 50 mcg (2,000 unit) cap Take 1 capsule by mouth once daily. DULoxetine (CYMBALTA) 60 mg capsule Take 1 capsule by mouth once daily. furosemide (LASIX) 20 mg tablet Take 1 tablet by mouth twice daily. atorvastatin (LIPITOR) 40 mg tablet Take 1 tablet by mouth once daily. levothyroxine (SYNTHROID) 100 mcg tablet Take 1 tablet by mouth every morning. acyclovir (ZOVIRAX) 400 mg tablet Take 1 tablet by mouth three times daily. for 5 days prn outbreaks lidocaine (XYLOCAINE) 5 % ointment Apply to affected area as needed. use a small amount to affectedarea qid prn pain ANTI-FUNGAL 2 % powder APPLY TOPICALLY TO AFFECTED AREA TWICE A DAY NEEDED FOR ITCHING/RASH ascorbic acid, vitamin C, (VITAMIN C) 500 mg tablet Take 1 tablet by mouth once daily. fexofenadine (ALLEN ALLERGY) 180 mg tablet Take 1 tablet by mouth once daily. insulin lispro (HUMALOG KWIKPEN INSULIN) 200 unit/mL (3 mL) injection Inject subcutaneously 14 units with breakfast, 16 units with lunch, and 24 units with dinner alcohol swabs UAD to clean skin before testing blood sugar and injecting insulins. Facial Mask [facility] 1 Device once daily. Oxygen mask to be worn daily for history of hypoxia. nitroglycerin sublingual (NITROQUICK) 0.4 mg SL tablet DISSOLVE 1 TAB UNDER THE TONGUE NEEDED FOR CHEST PAIN EVERY 5 MINUTES UP TO 3 TIMES. IF NO RELIEF CALL 911. blood sugar diagnostic ([employer]sUCH ULTRA BLUE TEST STRIP) test strip USE DIRECTED TO CHECK BLOOD SUGAR 4-5 TIMES DAILY, E11.9 isosorbide mononitrate ER (IMDUR) 120 mg 24 hr tablet TAKE 1 TABLETS BY MOUTH EVERY MORNING - (120mg daily) COMPOUNDED PRESCRIPTION Pulse oximetry to be used PRN for SOB for COPD DX:J96.12 promethazine (PHENERGAN) 25 mg tablet Take 1 tablet by mouth every 8 hours as needed (for nausea). lancets ([employer] DELICA LANCETS) 30 gauge mis USE TO CHECK BLOOD SUGAR 4-5 TIMES DAILY, E11.9 fluorometholone (FML LIQUID FILM) 0.1 % ophthalmic suspension 1 Drop every 4 hours. flash glucose scanning reader ([employer] KIRA 14 DAY READER) misc Use to check blood sugars 4-5 times per day Dx: Type 2 diabetes mellitus treated with insulin E11.9 flash glucose sensor (FREESTYLE KIRA 14 DAY SENSOR) kit Use to check blood sugars 4-5 times per day. Dx: Type 2 diabetes mellitus treated with insulin E11.9 glucose 4 gram chewable tablet TAKE 4 TABLETS BY MOUTH NEEDED FOR LOW BLOOD SUGAR. COMPOUNDED PRESCRIPTION Please fit for BiPAP mask. COMPOUNDED PRESCRIPTION OCD Titration for portable oxygen concentrator Oxygen Flow Rate between 2-6liters. To keep oxygen saturation at or above 92%. OXYGEN, HOME THERAPY, Inhale 3 L/min as instructed as directed. COMPOUNDED PRESCRIPTION Evaluation for diabetic shoes and inserts Dx: E11.65, Z79.4 Incontinence Pad, Liner, Disp pads 1 Device as needed (urinary incontinence). Prevail incontinence pads. Dx: urinary incontinence. Size: small Blood-Glucose Meter ([employer].comTOUCH ULTRA2) monitoring kit UAD to test blood sugar metoprolol tartrate, short acting, (LOPRESSOR) 50 mg tablet Take 1.5 tablets by mouth twice daily. No current facility-administered medications on file prior to visit. Social History Social History Tobacco Use Smoking status: Former Smoker Packs/day: 1.00 Years: 28.00 Pack years: 28.00 Types: Cigarettes Start date: 1978 Quit date: 09/22/2005 Years since quittin.4 Smokeless tobacco: Never Used Tobacco comment: Father smoked in childhood. 2nd spouse smoked in home. Substance Use Topics Alcohol use: No Drug use: No Review of Symptoms REVIEW OF SYSTEMS GENERAL: No weight loss, malaise or fevers RESPIRATORY: Negative for cough, hemoptysis, wheezing, COPD, dyspnea or shortness of breath CARDIOVASCULAR: Negative for chest pain, leg swelling, hypertension, CHF or palpitations GI: No nausea, vomiting, or diarrhea SKIN: Negative for lesions, rash, and itching EXAM: BP 130/78 Pulse 94 Resp 20 SpO2 97% General Appearance: Well appearing, alert, in no acute distress, well-hydrated, well nourished.. Skin: Skin color, texture, turgor normal, no suspicious rashes or lesions. Nose: no apparent bleeding today without packing. Lungs: Lungs clear to auscultation. No wheezing, rhonchi, rales.. Heart: RRR without murmur, gallop, or rubs. No ectopy. Abdomen: Abdomen soft. Bowel sounds normal. No masses, organomegaly, Positive findings: tenderness mild generalized which is chronic. Extremities: No edema Feet: Shoes and socks removed, abnormal pulses Absent bilaterally and Toes on both feet are dusky with poor sensation to light touch and are cold compared to rest of her foot. Health Maintenance List SHINGRIX VACCINE(2 of 3) due on 03/11/2017 ADVANCE DIRECTIVE DISCUSSION Never done COLORECTAL CANCER SCREENING due on 11/29/2021 LDL CHOLESTEROL due on 12/07/2021 MAMMOGRAM due on 12/28/2021 URINE ALBUMIN:CREATININE RATIO due on 02/08/2022 COVID-19 VACCINE(4 - Booster for Pfizer series) due on 03/13/2022 DILATED RETINAL EXAM due on 04/02/2022 HBA1C due on 05/13/2022 DIABETIC FOOT EXAM due on 08/24/2022 SERUM CREATININE due on 11/13/2022 HEMOGLOBIN/HEMATOCRIT due on 11/13/2022 ANNUAL PCP TEAM CHRONIC DISEASE VISIT due on 12/27/2022 BP CONTROLLED (<130/80) due on 12/27/2022 DTAP,TDAP,TD(2 - Td or Tdap) due on 10/02/2026 BONE DENSITY Completed INFLUENZA Completed HEPATITIS C SCREENING Completed PNEUMOCOCCAL: 65+ Completed Data reviewed Component Latest Ref Rng & Units 11/13/2021 Protein, Total 6.3 - 8.0 g/dL 7.3 Albumin 3.9 - 4.9 g/dL 3.8 (L) Calcium 8.5 - 10.2 mg/dL 9.2 Bilirubin, Total 0.2 - 1.3 mg/dL 0.6 Alkaline Phosphatase 34 - 123 U/L 37 AST 13 - 35 U/L 17 Glucose 74 - 99 mg/dL 92 BUN 7 - 21 mg/dL 18 Creatinine 0.58 - 0.96 mg/dL 1.31 (H) Sodium 136 - 144 mmol/L 143 Potassium 3.7 - 5.1 mmol/L 4.6 Chloride 97 - 105 mmol/L 106 (H) CO2 22 - 30 mmol/L 18 (L) Anion Gap 9 - 18 mmol/L 19 (H) ALT 7 - 38 U/L 7 eGFR- 49 eGFR-All Other Races . 41 WBC 3.70 - 11.00 k/uL 7.50 RBC 3.90 - 5.20 m/uL 3.84 (L) Hemoglobin 11.5 - 15.5 g/dL 11.4 (L) Hematocrit 36.0 - 46.0 % 37.8 MCV 80.0 - 100.0 fL 98.4 MCH 26.0 - 34.0 pG 29.7 MCHC 30.5 - 36.0 g/dL 30.2 (L) RDW-CV 11.5 - 15.0 % 15.0 Platelet Count 150 - 400 k/uL 218 MPV 9.0 - 12.7 fL 10.4 Absolute nRBC <0.01 k/uL <0.01 Iron 41 - 186 ug/dL 55 TIBC 232 - 386 ug/dL 321 Transferrin Saturation 15 - 57 % 17 Hemoglobin A1C 4.3 - 5.6 % 6.1 (H) Estimated Average Glucose mg/dL 128 Ferritin 14.7 - 205.1 ng/mL 47.8 ASSESSMENT/PLAN: 1. Epistaxis - ICD9: 784.7, ICD10: R04.0 (primary diagnosis) Bleeding has resolved. Has had melanotic stools which is likely 2/2 swallowing blood. Will recheck CBC and FOBT. Continue recommendations per ENT and call with recurrent bleeding. 2. Melanotic stools - ICD9: 578.1, ICD10: K92.1 - FECAL OCCULT BLOOD TEST 3. Dusky feet - ICD9: 782.9, ICD10: R23.8 Patient's toes are dusky and slightly cold bilaterally. Will repeat LILLIAN and refer to vascular. Lila call for OV with podiatry. Discussed importance of ASA, statin, and keeping toes warm. Red flags for re-assessment reviewed with patient in detail. - PVR ANK PRESS NIRU VAS LAB - CONSULT TO VASCULAR SURGERY 4. Type 2 diabetes mellitus with diabetic neuropathy, with long-term current use of insulin (HCC) -ICD9: 250.60, 357.2, V58.67, ICD10: E11.40, Z79.4 worsening control - Increase Lantus 38 units BID - Blood glucose monitoring on a four times a day schedule - Encouraged regular aerobic exercise and weight loss - Follow up in 4 weeks, sooner should any other issues arise. - Discussed diabetic education issues of fpc diabetic complications, hypoglycemic symptoms, hyperglycemic symptoms, diet, medications- side effects and need for compliance, importance of exercise, use and side effects of insulin, importance of appointments with Quality Assurance Group Leader and importance of annual examinations with Opthalmology with patient. - HGB A1C - COMP METABOLIC PANEL - CBC - LIPID PANEL, NONFASTING - ALBUMIN/CREAT RATIO RND UR - LANTUS SOLOSTAR U-100 INSULIN 100 UNIT/ML (3 ML) SUBCUTANEOUS PEN - PVR ANK PRESS NIRU VAS LAB 5. Type 2 diabetes mellitus with hyperglycemia, with long-term current use of insulin (HCC) - ICD9:250.00, 790.29, V58.67, ICD10: E11.65, Z79.4 - HUMALOG KWIKPEN U-200 INSULIN 200 UNIT/ML (3 ML) SUBCUTANEOUS 6. Essential hypertension - ICD9: 401.9, ICD10: I10 - good control - Continue current medication(s) - Encouraged dietary sodium restriction/DASH diet - Recommended regular aerobic exercise. - Reviewed risks of HTN and principles of treatment - Goal of BP <140/90 I spent a total of 50 minutes on the date of the service which included preparing to see the patient, [id number] patient care, completing clinical documentation, obtaining and/or reviewing separately obtained history, performing a medically appropriate examination, counseling and educating the pat ient/family/caregiver, ordering medications, tests, or procedures and independently interpreting results (not separately reported). Nanda Oliveira MD documented in this encounterBrec[facility]06-10-[facility]22 Miscellaneous Notes* Telephone Encounter - Purnima Donovan RN - 03/01/2022 9:54 AM EDT Last Office Visit: 12/27/2021 Future Office Visit: 03/01/2022 Date of Last Labs: 11/13/2021 documented in this encounterBrecksville [facility]05-20-2022 Miscellaneous Notes* Telephone Encounter - Cindi Munoz RN - 02/08/2022 2:39 PM EDT Patient reports she's had SOB for months that comes and goes. Reports she does have COPD and uses an inhaler. No symptoms of illness. No wheeze, no fever. Patient declined sooner appt, stating she can wait until her appt with pcp on 02-26. Patient agreeable to call back if needs a sooner appt. documented in this encounterBrecksville [facility]05-13-2022 Miscellaneous Notes* Telephone Encounter - Samantha Dent RN - 02/01/2022 4:08 PM EDT Patient has been identified by name and date of : Yes Pharmacy phones for refill(s): Pending Prescriptions Disp Refills ASPIRIN 81 MG TABLET,DELAYED RELEASE 30 tablet Sig: Take 1 tablet by mouth every morning. SCOTT: No FLUTICASONE PROPIONATE 50 MCG/ACTUATION NASAL SPRAY,SUSPENSION 16 g Sig: Use 2 Sprays in each nostril once daily. SCOTT: No ALLOPURINOL 100 MG TABLET 90 tablet Sig: Take 1 tablet by mouth once daily. For gout. SCOTT: No OMEPRAZOLE 40 MG CAPSULE,DELAYED RELEASE 90 capsule Sig: Take 1 capsule by mouth once daily. SCOTT: No MELATONIN 5 MG CAPSULE 90 capsule Sig: Take 1 capsule by mouth daily at bedtime. SCOTT: No Date of last office visit in primary care: 12/27/21, NOV: 02/26/22 Last 2 Encounter Wt Readings: Date: Wt: 11/19/2021 88.6 kg (195 lb 6.4 oz) 08/24/2021 91.6 kg (202 lb) Previous labs/tests for medication: Diabetes: Hemoglobin A1C (%) Date Value 11/13/2021 6.1 12/07/2020 6.3 Hemoglobin A1C (POCT) (%) Date Value 05/25/2021 6.0 Cholesterol: HDL Cholesterol (mg/dL) Date Value 10/01/2019 39 HDL Cholesterol, Nonfasting (mg/dL) Date Value 12/07/2020 46 LDL Cholesterol (mg/dL) Date Value 10/01/2019 87 LDL Cholesterol, Nonfasting (mg/dL) Date Value 12/07/2020 94 ALT (U/L) Date Value 11/13/2021 7 Non HDL Cholesterol, Nonfasting (mg/dL) Date Value 12/07/2020 128 Blood Pressure: BUN (mg/dL) Date Value 11/13/2021 18 Sodium (mmol/L) Date Value 11/13/2021 143 Last 1 Encounter BP Readings: Date: BP: 12/27/2021 128/78 Blood Counts: WBC (k/uL) Date Value 11/13/2021 7.50 RBC (m/uL) Date Value 11/13/2021 3.84 Hematocrit (%) Date Value 11/13/2021 37.8 Hemoglobin (g/dL) Date Value 11/13/2021 11.4 Platelet Count (k/uL) Date Value 11/13/2021 218 Liver Function: ALT (U/L) Date Value 11/13/2021 7 AST (U/L) Date Value 11/13/2021 17 Please advise. Thank you. Samantha Dent RN documented in this encounterBrecksville [facility]05-11-2022 Miscellaneous Notes* Telephone Encounter - Fernanda Reyes LPN - 01/30/2022 4:38 PM EDT oJri, watch case polisher with [facility] calling to get copy of last OV and med list for pt. Identifies pt with name and date of . Faxed to [phone]. Done. Fernanda Reyes LPN documented in this encounterBrecksville [facility]04-07-2022 History of Present illness Narrative* Nanda Oliveira MD - 12/27/2021 4:39 PM EDT Chief Complaint Patient presents with: Follow Up: ER follow up- pain HPI Tamia Panda is a 66 year old female who presents here today for ER Follow Up. Patient evaluated at [facility] ED on 12/24 for episode of fall the same day. Walking after her dog when shelost her balance and fell onto her left side. Did not hit head or have LOC. Only on the ground for a few minutes until help arrived. Complaining of pain in her chest as well as knee, elbow, and shoulder in the ED. CT head obtained in the ED since she is on anticoagulation which was negative for fracture or bleed. Xrays of the hip, knee, elbow, and shoulder were negative for fracture. Rib xray positive for mildly displaced left 7th rib with questionable 3rd rib fracture. Given Morphine and Fentanyl which improved her pain. Ambulated with walker successfully in the ED. Discharged home with rx for 12 tablets of 5 mg percocet and instructed to follow up with our office. Since discharge, patient has not had any other falls. Has been using cane with ambulation and feelsunsteady on her feet. Has a walker and wheelchair at home as well. Having pain in her left ribs anddown her left side. Has been taking the Percocet and stool softener. States that the percocet is helping some with her pain. Not taking anything OTC for pain. Has tried ice on her shoulder and back which did help temporarily. Has difficulty lifting her left arm due to pain. Noted that patient has been living with her son Avery. States that no one pushed her down and she feels safe at home. States that her son is not selling drugs out of her house not right now. Past medical history, appointments, medications, allergies reviewed. Previous Medical History PAST MEDICAL HISTORY Diagnosis Date Acute chronic obstructive pulmonary disease with respiratory failure AF (paroxysmal atrial fibrillation) ([facility]) Anxiety Arthritis Seeing Dr Elliott Cervical cancer ([facility]) hysterectomy CHF (congestive heart failure) ([facility]) Dr. Ramsey Chronic back pain Seeing Dr. Wallace Chronic respiratory failure with hypercapnia ([facility]) 10/06/2018 [facility], 09/09/2018: 7.38/54.7/77/32.6 on 30% O2. CKD (chronic kidney disease), stage III ([facility]) Constipation Coronary atherosclerosis of [place] coronary artery Cyst of left kidney repeat US 10/2020 DDD (degenerative disc disease), lumbar DM type 2 (diabetes mellitus, type 2) ([facility]) Dr. Lopez for podiatry DVT (deep venous thrombosis) ([facility]) Post op INA, BSO. Dysphagia Seeing Dr. Beaulieu Emphysema lung ([facility]) Essential hypertension Functional dyspepsia Gastroparesis 2016 mild GERD without esophagitis Gout Headache History of colon polyps 11/28/2016 Hyperlipidemia Hyperuricemia Hypothyroidism Incontinence Seeing Dr. Chapman Lung nodule 02/[address] in 3 months Morbid obesity ([facility]) Muscle weakness Nausea Obesity hypoventilation syndrome ([facility]) on 2-3 L oxygen continuously PARESH on CPAP AISHA Kirk for BiPAP and [facility] [place] for O2. PE (pulmonary thromboembolism) (HCC) Post op INA/BSO. Pneumonia Pulmonary HTN (HCC) Renal cyst repeat US 10/2020 RLS (restless legs syndrome) Shortness of breath Sleep apnea using oxygen currently, not on CPAP Unsteadiness on feet Vitamin D deficiency Wheezing Previous Surgical History PAST SURGICAL HISTORY Procedure Laterality Date CC PCI CORONARY INTERVENT 2003 CHOLECYSTECTOMY COLONOSCOPY Has had multiple in the past with polyps, cannot remember dates COLSC FLX W/RMVL OF TUMOR POLYP LESION SNARE TQ 11/28/2016 Repeat 2019 EGD TRANSORAL BIOPSY SINGLE/MULTIPLE 11/28/2016 HERNIA REPAIR HX multiple KNEE SURGERY HX Left x3 for torn cartilage NASAL SURGERY PROCEDURE sinus PAST SURGICAL HISTORY OF 01/30/2018 endoscopic per-oral pyloromyotomy TOTAL ABDOM HYSTERECTOMY 1988 Cervical cancer TUBAL LIGATION HX WRIST SURGERY HX Right ganglion cyst removal x2 Family History FAMILY HISTORY Problem Relation Age of Onset Coronary Artery Disease Mother Coronary Artery Disease Father Asthma Brother Coronary Artery Disease Brother Diabetes Sister Hypertension Sister Diabetes Sister Heart Sister Allergies Sister Asthma Sister Allergies Sister Emphysema Sister Early stages COPD Paternal Uncle Patient Allergies ALLERGIES Allergen Reactions Adhesive Tape (Adrienne* Intolerance Surgical tape leaves rash Irritates skin badly and blisters along with medical tape Cats Other: See Comments Congested and itchy, difficulty breathing Dogs Other: See Comments Congestion, sneezing, and difficulty breathing Orphenadrine Unknown Capsaicin Itching Ciprofloxacin Other: See Comments Red, hot, itchy rash Keflex [Cephalexin] Hives Negative skin testing and [...] after 30 minutes, proceed with regular dosing. Niacin Unknown Pt states its niacin its niaspan Reglan [Metoclopram* Other: See Comments Unable to sleep Xanthines Unknown Zofran [Ondansetron* Itching Current Medications Current Outpatient Medications on File Prior to Visit Medication Sig potassium chloride (K-TAB) 10 mEq tablet Take 1 tablet by mouth daily with breakfast. BIPAP Bilevel PAP 16/12 cmH2O with 2 LPM oxygen bleed in, mask, tubing, filters, heated humidity, lifetime supplies. Dx: G47.33, G47.39. docusate sodium (STOOL SOFTENER) 100 mg capsule Take 1 capsule by mouth twice daily as needed for constipation. insulin glargine (LANTUS SOLOSTAR U-100 INSULIN) 100 unit/mL (3 mL) Inject 34 units subcutaneously twice daily insulin needles, DISPOSABLE, (ULTICARE PEN NEEDLE) 31 gauge x 5/16 USE DIRECTED. TO INJECT INSULINS busPIRone (BUSPAR) 10 mg tablet Take one tablet in the AM, one tablet in the afternoon and 1.5 tablets in the evening alendronate (FOSAMAX) 70 mg tablet Take 1 tablet by mouth one time a week. Take with a full glass of water, on an empty stomach; do NOT lie down for 30minutes. albuterol HFA (PROAIR HFA) 90 mcg/actuation inhaler Inhale 2 Puffs as instructed every 4 hours as needed for wheezing/shortness of breath. apixaban (ELIQUIS) 2.5 mg tab tab(s) Take 1 tablet by mouth twice daily. Cholecalciferol, Vitamin D3, (VITAMIN D-3) 50 mcg (2,000 unit) cap Take 1 capsule by mouth once daily. aspirin, enteric coated (ASPIRIN, ENTERIC COATED) 81 mg EC tablet Take 1 tablet by mouth every morning. DULoxetine (CYMBALTA) 60 mg capsule Take 1 capsule by mouth once daily. furosemide (LASIX) 20 mg tablet Take 1 tablet by mouth twice daily. atorvastatin (LIPITOR) 40 mg tablet Take 1 tablet by mouth once daily. levothyroxine (SYNTHROID) 100 mcg tablet Take 1 tablet by mouth every morning. Melatonin 5 mg cap Take 1 capsule by mouth daily at bedtime. allopurinol (ZYLOPRIM) 100 mg tablet Take 1 tablet by mouth once daily. For gout. omeprazole (PRILOSEC) 40 mg capsule Take 1 capsule by mouth once daily. fluticasone (FLONASE) 50 mcg/actuation nasal spray Use 2 Sprays in each nostril once daily. metoprolol tartrate, short acting, (LOPRESSOR) 50 mg tablet Take 1.5 tablets by mouth twice daily. acyclovir (ZOVIRAX) 400 mg tablet Take 1 tablet by mouth three times daily. for 5 days prn outbreaks lidocaine (XYLOCAINE) 5 % ointment Apply to affected area as needed. use a small amount to affectedarea qid prn pain ANTI-FUNGAL 2 % powder APPLY TOPICALLY TO AFFECTED AREA TWICE A DAY NEEDED FOR ITCHING/RASH ascorbic acid, vitamin C, (VITAMIN C) 500 mg tablet Take 1 tablet by mouth once daily. fexofenadine (ALLEN ALLERGY) 180 mg tablet Take 1 tablet by mouth once daily. insulin lispro (HUMALOG KWIKPEN INSULIN) 200 unit/mL (3 mL) injection Inject subcutaneously 14 units with breakfast, 16 units with lunch, and 24 units with dinner alcohol swabs UAD to clean skin before testing blood sugar and injecting insulins. Facial Mask [facility] 1 Device once daily. Oxygen mask to be worn daily for history of hypoxia. nitroglycerin sublingual (NITROQUICK) 0.4 mg SL tablet DISSOLVE 1 TAB UNDER THE TONGUE NEEDED FOR CHEST PAIN EVERY 5 MINUTES UP TO 3 TIMES. IF NO RELIEF CALL 911. blood sugar diagnostic ([employer] DesignsUCH ULTRA BLUE TEST STRIP) test strip USE DIRECTED TO CHECK BLOOD SUGAR 4-5 TIMES DAILY, E11.9 isosorbide mononitrate ER (IMDUR) 120 mg 24 hr tablet TAKE 1 TABLETS BY MOUTH EVERY MORNING - (120mg daily) COMPOUNDED PRESCRIPTION Pulse oximetry to be used PRN for SOB for COPD DX:J96.12 promethazine (PHENERGAN) 25 mg tablet Take 1 tablet by mouth every 8 hours as needed (for nausea). lancets ([employer]sUCH DELICA LANCETS) 30 gauge [facility] USE TO CHECK BLOOD SUGAR 4-5 TIMES DAILY, E11.9 fluorometholone (FML LIQUID FILM) 0.1 % ophthalmic suspension 1 Drop every 4 hours. flash glucose scanning reader (ElixrSTYLE KIRA 14 DAY READER) [facility] Use to check blood sugars 4-5 times per day Dx: Type 2 diabetes mellitus treated with insulin E11.9 flash glucose sensor (FREESTYLE KIRA 14 DAY SENSOR) kit Use to check blood sugars 4-5 times per day. Dx: Type 2 diabetes mellitus treated with insulin E11.9 glucose 4 gram chewable tablet TAKE 4 TABLETS BY MOUTH NEEDED FOR LOW BLOOD SUGAR. COMPOUNDED PRESCRIPTION Please fit for BiPAP mask. COMPOUNDED PRESCRIPTION OCD Titration for portable oxygen concentrator Oxygen Flow Rate between 2-6liters. To keep oxygen saturation at or above 92%. OXYGEN, HOME THERAPY, Inhale 3 L/min as instructed as directed. COMPOUNDED PRESCRIPTION Evaluation for diabetic shoes and inserts Dx: E11.65, Z79.4 Incontinence Pad, Liner, Disp pads 1 Device as needed (urinary incontinence). Prevail incontinence pads. Dx: urinary incontinence. Size: small Blood-Glucose Meter (ONETOUCH ULTRA2) monitoring kit UAD to test blood sugar No current facility-administered medications on file prior to visit. Social History Social History Tobacco Use Smoking status: Former Smoker Packs/day: 1.00 Years: 28.00 Pack years: 28.00 Types: Cigarettes Start date: 1978 Quit date: 09/22/2005 Years since quittin.2 Smokeless tobacco: Never Used Tobacco comment: Father smoked in childhood. 2nd spouse smoked in home. Substance Use Topics Alcohol use: No Drug use: No Review of Symptoms REVIEW OF SYSTEMS See HPI EXAM: BP 128/78 Pulse 116 Resp 22 SpO2 96% General Appearance: Well appearing, alert, in no acute distress, well-hydrated, well nourished.. Skin: abrasion over left elbow without cellulitis or drainage Lungs: Lungs clear to auscultation. No wheezing, rhonchi, rales.. Heart: RRR without murmur, gallop, or rubs. No ectopy. Musculoskeletal: Normal ROM of left elbow and knee without pain/swelling. Shoulder: Location: Left. Redness: No. Warmth: No. Tenderness to palpation: Yes, AC joint. Swelling: No. Range of motion: abduction limited to 90 degrees with active ROM. Full passive ROM. Empty can test: Postiive Shepard: Positive Health Maintenance List SHINGRIX VACCINE(2 of 3) due on 03/11/2017 ADVANCE DIRECTIVE DISCUSSION Never done COLORECTAL CANCER SCREENING due on 11/29/2021 LDL CHOLESTEROL due on 12/07/2021 MAMMOGRAM due on 12/28/2021 URINE ALBUMIN:CREATININE RATIO due on 02/08/2022 DILATED RETINAL EXAM due on 04/02/2022 HBA1C due on 05/13/2022 BP CONTROLLED (<130/80) due on 05/25/2022 DIABETIC FOOT EXAM due on 08/24/2022 SERUM CREATININE due on 11/13/2022 HEMOGLOBIN/HEMATOCRIT due on 11/13/2022 ANNUAL PCP TEAM CHRONIC DISEASE VISIT due on 11/23/2022 DTAP,TDAP,TD(2 - Td or Tdap) due on 10/02/2026 BONE DENSITY Completed INFLUENZA Completed HEPATITIS C SCREENING Completed PNEUMOVAX AGE 65 AND OVER WITH 5YR LOOKBACK Completed COVID-19 VACCINE Completed MENINGOCOCCAL CONJUGATE Aged Out ASSESSMENT/PLAN: 1. Fall in home, initial encounter - ICD9: E888.9, E849.0, ICD10: W19.XXXA, Y92.009 (primary diagnosis) No recurrent falls. Instructed patient to use walker instead of cane for stability. Will obtain MRIof her left shoulder to rule out rotator cuff tear with limited ROM and increased pain. I instructed patient to use Percocet for breakthrough pain and try Tylenol 1,000 mg TID along with flexeril, ice/heat. Since she is living with her son who is known drug dealer, I do not feel comfortable prescribing her narcotics at this time. Patient feels safe at home and denies drug dealing at this time or abuse. Red flags for re-assessment reviewed with patient in detail. - MRI SHOULDER WO IVCON LT 2. Closed fracture of one rib of left side, initial encounter - ICD9: 807.01, ICD10: S22.32XA 3. Abrasion of left elbow, initial encounter - ICD9: 913.0, ICD10: S50.312A 4. Acute pain of left shoulder - ICD9: 719.41, ICD10: M25.512 - MRI SHOULDER WO IVCON LT 5. Acute hip pain, left - ICD9: 719.45, ICD10: M25.552 6. Acute pain of left knee - ICD9: 719.46, ICD10: M25.562 I spent a total of 35 minutes on the date of the service which included preparing to see the patient, zuwr-[id number] patient care, completing clinical documentation, obtaining and/or reviewing separately obtained history, performing a medically appropriate examination, counseling and educating the pat ient/family/caregiver and ordering medications, tests, or procedures. Nanda Oliveira MD documented in this encounterBrecksville [facility]04-04-2022 Miscellaneous Notes* Telephone Encounter - Uma Blair LPN - 12/24/2021 11:44 AM EDT Patient being seen in office this day. Uma Blair LPN * Telephone Encounter - Katie Mckeon APRN.CNP - 12/20/2021 3:50 PM EDT If pain worsening would recommend ER eval. Katie Mckeon APRN.LILY * Telephone Encounter - Purnima Donovan RN - 12/20/2021 11:04 AM EDT Mitali from [facility] calls and states that she has been trying to get ahold Of patient in regards to Bi Pap machine with no response. Mitali states that patient can call Option 8 to speak with her about BI Pap Machine. Otherwise they are going to have to discontinue the order. Called and spoke with patient. Patient states she was wondering why she wasn't hearing from [facility] in regards to Bi Pap. Provided phone number to patient. Patient states that she will give Mitali a callback. Patient also reports that while she was moving 2 weeks ago she had tried to sit on a 24 pack of pepsi. Patient has misjudged where she was sitting and she fell on her right side. Patient reports thather knees knocked together and her right hip and back was joaquina. Patient reports that she has beenin a lot of pain. Offered to schedule appointment with a provider to be seen this week. Patient states that she doesn't think that she can get a ride in this week. Patient did schedule appointment with Katie on 12/24/2021. Patient states that if pain gets worse then she will just go to ER. Please review and advise, Purnima Donovan RN documented in this encounterBrecksville [facility]09-27-2019 History of Past illness Narrative* Problem Noted Date Resolved Date Diarrhea 06/18/2019 11/02/2020 Stage 3 chronic kidney disease 01/23/2018 0 11/02/2020 Hypercapnia 01/22/2018 11/02/2020 Pre-op testing 11/11/2017 01/03/2020 Overview: Added automatically from request for surgery [id number] Coronary disease 12/11/2011 11/02/2020 Morbid obesity 01/03/2020 Anxiety 11/21/2021 Sleep apnea 02/14/2017 COPD (chronic obstructive pulmonary disease) 04/16/2019 Constipation 11/02/2020 DM type 2 (diabetes mellitus, type 2) 02/14/2017 Shortness of breath 02/14/2017 documented as of this encounter (statuses as of 12/26/2021) [facility] History of Past illness Narrative* Problem Noted Date Resolved Date Diarrhea 06/18/2019 11/02/2020 Stage 3 chronic kidney disease 01/23/2018 0 11/02/2020 Hypercapnia 01/22/2018 11/02/2020 Pre-op testing 11/11/2017 01/03/2020 Overview: Added automatically from request for surgery [id number] Coronary disease 12/11/2011 11/02/2020 Morbid obesity 01/03/2020 Anxiety 11/21/2021 Sleep apnea 02/14/2017 COPD (chronic obstructive pulmonary disease) 04/16/2019 Constipation 11/02/2020 DM type 2 (diabetes mellitus, type 2) 02/14/2017 Shortness of breath 02/14/2017 documented as of this encounter (statuses as of 12/28/2021) [facility] History of Past illness Narrative* Problem Noted Date Resolved Date Diarrhea 06/18/2019 11/02/2020 Stage 3 chronic kidney disease 01/23/2018 0 11/02/2020 Hypercapnia 01/22/2018 11/02/2020 Pre-op testing 11/11/2017 01/03/2020 Overview: Added automatically from request for surgery [id number] Coronary disease 12/11/2011 11/02/2020 Morbid obesity 01/03/2020 Anxiety 11/21/2021 Sleep apnea 02/14/2017 COPD (chronic obstructive pulmonary disease) 04/16/2019 Constipation 11/02/2020 DM type 2 (diabetes mellitus, type 2) 02/14/2017 Shortness of breath 02/14/2017 documented as of this encounter (statuses as of 01/30/2022) [facility] of Past illness Narrative* Problem Noted Date Resolved Date Diarrhea 06/18/2019 11/02/2020 Stage 3 chronic kidney disease 01/23/2018 0 11/02/2020 Hypercapnia 01/22/2018 11/02/2020 Pre-op testing 11/11/2017 01/03/2020 Overview: Added automatically from request for surgery [id number] Coronary disease 12/11/2011 11/02/2020 Morbid obesity 01/03/2020 Anxiety 11/21/2021 Sleep apnea 02/14/2017 COPD (chronic obstructive pulmonary disease) 04/16/2019 Constipation 11/02/2020 DM type 2 (diabetes mellitus, type 2) 02/14/2017 Shortness of breath 02/14/2017 documented as of this encounter (statuses as of 02/01/2022) [facility]2019 History of Past illness Narrative* Problem Noted Date Resolved Date Diarrhea 06/18/2019 11/02/2020 Stage 3 chronic kidney disease 01/23/2018 0 11/02/2020 Hypercapnia 01/22/2018 11/02/2020 Pre-op testing 11/11/2017 01/03/2020 Overview: Added automatically from request for surgery [id number] Coronary disease 12/11/2011 11/02/2020 Morbid obesity 01/03/2020 Anxiety 11/21/2021 Sleep apnea 02/14/2017 COPD (chronic obstructive pulmonary disease) 04/16/2019 Constipation 11/02/2020 DM type 2 (diabetes mellitus, type 2) 02/14/2017 Shortness of breath 02/14/2017 documented as of this encounter (statuses as of 02/08/2022) [facility]2019 History of Past illness Narrative* Problem Noted Date Resolved Date Diarrhea 06/18/2019 11/02/2020 Stage 3 chronic kidney disease 01/23/2018 0 11/02/2020 Hypercapnia 01/22/2018 11/02/2020 Pre-op testing 11/11/2017 01/03/2020 Overview: Added automatically from request for surgery [id number] Coronary disease 12/11/2011 11/02/2020 Morbid obesity 01/03/2020 Anxiety 11/21/2021 Sleep apnea 02/14/2017 COPD (chronic obstructive pulmonary disease) 04/16/2019 Constipation 11/02/2020 DM type 2 (diabetes mellitus, type 2) 02/14/2017 Shortness of breath 02/14/2017 documented as of this encounter (statuses as of 02/11/2022) [facility]2019 History of Past illness Narrative* Problem Noted Date Resolved Date Diarrhea 06/18/2019 11/02/2020 Stage 3 chronic kidney disease 01/23/2018 0 11/02/2020 Hypercapnia 01/22/2018 11/02/2020 Pre-op testing 11/11/2017 01/03/2020 Overview: Added automatically from request for surgery [id number] Coronary disease 12/11/2011 11/02/2020 Morbid obesity 01/03/2020 Anxiety 11/21/2021 Sleep apnea 02/14/2017 COPD (chronic obstructive pulmonary disease) 04/16/2019 Constipation 11/02/2020 DM type 2 (diabetes mellitus, type 2) 02/14/2017 Shortness of breath 02/14/2017 documented as of this encounter (statuses as of 03/06/2022) [facility]2019 History of Past illness Narrative* Problem Noted Date Resolved Date Diarrhea 06/18/2019 11/02/2020 Stage 3 chronic kidney disease 01/23/2018 0 11/02/2020 Hypercapnia 01/22/2018 11/02/2020 Pre-op testing 11/11/2017 01/03/2020 Overview: Added automatically from request for surgery [id number] Coronary disease 12/11/2011 11/02/2020 Morbid obesity 01/03/2020 Anxiety 11/21/2021 Sleep apnea 02/14/2017 COPD (chronic obstructive pulmonary disease) 04/16/2019 Constipation 11/02/2020 DM type 2 (diabetes mellitus, type 2) 02/14/2017 Shortness of breath 02/14/2017 documented as of this encounter (statuses as of 03/12/2022) [address]27-2019 History of Past illness Narrative* Problem Noted Date Resolved Date Diarrhea 06/18/2019 11/02/2020 Stage 3 chronic kidney disease 01/23/2018 0 11/02/2020 Hypercapnia 01/22/2018 11/02/2020 Pre-op testing 11/11/2017 01/03/2020 Overview: Added automatically from request for surgery [id number] Coronary disease 12/11/2011 11/02/2020 Morbid obesity 01/03/2020 Anxiety 11/21/2021 Sleep apnea 02/14/2017 COPD (chronic obstructive pulmonary disease) 04/16/2019 Constipation 11/02/2020 DM type 2 (diabetes mellitus, type 2) 02/14/2017 Shortness of breath 02/14/2017 documented as of this encounter (statuses as of 03/13/2022) [facility]2019 History of Past illness Narrative* Problem Noted Date Resolved Date Diarrhea 06/18/2019 11/02/2020 Stage 3 chronic kidney disease 01/23/2018 0 11/02/2020 Hypercapnia 01/22/2018 11/02/2020 Pre-op testing 11/11/2017 01/03/2020 Overview: Added automatically from request for surgery [id number] Coronary disease 12/11/2011 11/02/2020 Morbid obesity 01/03/2020 Anxiety 11/21/2021 Sleep apnea 02/14/2017 COPD (chronic obstructive pulmonary disease) 04/16/2019 Constipation 11/02/2020 DM type 2 (diabetes mellitus, type 2) 02/14/2017 Shortness of breath 02/14/2017 documented as of this encounter (statuses as of 03/29/2022) [facility]2019 History of Past illness Narrative* Problem Noted Date Resolved Date Diarrhea 06/18/2019 11/02/2020 Stage 3 chronic kidney disease 01/23/2018 0 11/02/2020 Hypercapnia 01/22/2018 11/02/2020 Pre-op testing 11/11/2017 01/03/2020 Overview: Added automatically from request for surgery [id number] Coronary disease 12/11/2011 11/02/2020 Morbid obesity 01/03/2020 Anxiety 11/21/2021 Sleep apnea 02/14/2017 COPD (chronic obstructive pulmonary disease) 04/16/2019 Constipation 11/02/2020 DM type 2 (diabetes mellitus, type 2) 02/14/2017 Shortness of breath 02/14/2017 documented as of this encounter (statuses as of 04/01/2022) [facility]2019 History of Past illness Narrative* Problem Noted Date Resolved Date Diarrhea 06/18/2019 11/02/2020 Stage 3 chronic kidney disease 01/23/2018 0 11/02/2020 Hypercapnia 01/22/2018 11/02/2020 Pre-op testing 11/11/2017 01/03/2020 Overview: Added automatically from request for surgery [id number] Coronary disease 12/11/2011 11/02/2020 Morbid obesity 01/03/2020 Anxiety 11/21/2021 Sleep apnea 02/14/2017 COPD (chronic obstructive pulmonary disease) 04/16/2019 Constipation 11/02/2020 DM type 2 (diabetes mellitus, type 2) 02/14/2017 Shortness of breath 02/14/2017 documented as of this encounter (statuses as of 04/03/2022) [facility]2019 History of Past illness Narrative* Problem Noted Date Resolved Date Diarrhea 06/18/2019 11/02/2020 Stage 3 chronic kidney disease 01/23/2018 0 11/02/2020 Hypercapnia 01/22/2018 11/02/2020 Pre-op testing 11/11/2017 01/03/2020 Overview: Added automatically from request for surgery [id number] Coronary disease 12/11/2011 11/02/2020 Morbid obesity 01/03/2020 Anxiety 11/21/2021 Sleep apnea 02/14/2017 COPD (chronic obstructive pulmonary disease) 04/16/2019 Constipation 11/02/2020 DM type 2 (diabetes mellitus, type 2) 02/14/2017 Shortness of breath 02/14/2017 documented as of this encounter (statuses as of 04/25/2022) [facility]2019 History of Past illness Narrative* Problem Noted Date Resolved Date Diarrhea 06/18/2019 11/02/2020 Stage 3 chronic kidney disease 01/23/2018 0 11/02/2020 Hypercapnia 01/22/2018 11/02/2020 Pre-op testing 11/11/2017 01/03/2020 Overview: Added automatically from request for surgery [id number] Coronary disease 12/11/2011 11/02/2020 Morbid obesity 01/03/2020 Anxiety 11/21/2021 Sleep apnea 02/14/2017 COPD (chronic obstructive pulmonary disease) 04/16/2019 Constipation 11/02/2020 DM type 2 (diabetes mellitus, type 2) 02/14/2017 Shortness of breath 02/14/2017 documented as of this encounter (statuses as of 05/02/2022) [facility]2019 History of Past illness Narrative* Problem Noted Date Resolved Date Diarrhea 06/18/2019 11/02/2020 Stage 3 chronic kidney disease 01/23/2018 0 11/02/2020 Hypercapnia 01/22/2018 11/02/2020 Pre-op testing 11/11/2017 01/03/2020 Overview: Added automatically from request for surgery [id number] Coronary disease 12/11/2011 11/02/2020 Morbid obesity 01/03/2020 Anxiety 11/21/2021 Sleep apnea 02/14/2017 COPD (chronic obstructive pulmonary disease) 04/16/2019 Constipation 11/02/2020 DM type 2 (diabetes mellitus, type 2) 02/14/2017 Shortness of breath 02/14/2017 documented as of this encounter (statuses as of 05/05/2022) [facility]2019 History of Past illness Narrative* Problem Noted Date Resolved Date Diarrhea 06/18/2019 11/02/2020 Stage 3 chronic kidney disease 01/23/2018 0 11/02/2020 Hypercapnia 01/22/2018 11/02/2020 Pre-op testing 11/11/2017 01/03/2020 Overview: Added automatically from request for surgery [id number] Coronary disease 12/11/2011 11/02/2020 Morbid obesity 01/03/2020 Anxiety 11/21/2021 Sleep apnea 02/14/2017 COPD (chronic obstructive pulmonary disease) 04/16/2019 Constipation 11/02/2020 DM type 2 (diabetes mellitus, type 2) 02/14/2017 Shortness of breath 02/14/2017 documented as of this encounter (statuses as of 05/22/2022) [facility]2019 History of Past illness Narrative* Problem Noted Date Resolved Date Diarrhea 06/18/2019 11/02/2020 Stage 3 chronic kidney disease 01/23/2018 0 11/02/2020 Hypercapnia 01/22/2018 11/02/2020 Pre-op testing 11/11/2017 01/03/2020 Overview: Added automatically from request for surgery [id number] Coronary disease 12/11/2011 11/02/2020 Morbid obesity 01/03/2020 Anxiety 11/21/2021 Sleep apnea 02/14/2017 COPD (chronic obstructive pulmonary disease) 04/16/2019 Constipation 11/02/2020 DM type 2 (diabetes mellitus, type 2) 02/14/2017 Shortness of breath 02/14/2017 documented as of this encounter (statuses as of 06/05/2022) [facility]2019 History of Past illness Narrative* Problem Noted Date Resolved Date Diarrhea 06/18/2019 11/02/2020 Stage 3 chronic kidney disease 01/23/2018 0 11/02/2020 Hypercapnia 01/22/2018 11/02/2020 Pre-op testing 11/11/2017 01/03/2020 Overview: Added automatically from request for surgery [id number] Coronary disease 12/11/2011 11/02/2020 Morbid obesity 01/03/2020 Anxiety 11/21/2021 Sleep apnea 02/14/2017 COPD (chronic obstructive pulmonary disease) 04/16/2019 Constipation 11/02/2020 DM type 2 (diabetes mellitus, type 2) 02/14/2017 Shortness of breath 02/14/2017 documented as of this encounter (statuses as of 06/11/2022) [facility]2019 History of Past illness Narrative* Problem Noted Date Resolved Date Diarrhea 06/18/2019 11/02/2020 Stage 3 chronic kidney disease 01/23/2018 0 11/02/2020 Hypercapnia 01/22/2018 11/02/2020 Pre-op testing 11/11/2017 01/03/2020 Overview: Added automatically from request for surgery [id number] Coronary disease 12/11/2011 11/02/2020 Morbid obesity 01/03/2020 Anxiety 11/21/2021 Sleep apnea 02/14/2017 COPD (chronic obstructive pulmonary disease) 04/16/2019 Constipation 11/02/2020 DM type 2 (diabetes mellitus, type 2) 02/14/2017 Shortness of breath 02/14/2017 documented as of this encounter (statuses as of 06/12/2022) [facility]2019 History of Past illness Narrative* Problem Noted Date Resolved Date Diarrhea 06/18/2019 11/02/2020 Stage 3 chronic kidney disease 01/23/2018 0 11/02/2020 Hypercapnia 01/22/2018 11/02/2020 Pre-op testing 11/11/2017 01/03/2020 Overview: Added automatically from request for surgery [id number] Coronary disease 12/11/2011 11/02/2020 Morbid obesity 01/03/2020 Anxiety 11/21/2021 Sleep apnea 02/14/2017 COPD (chronic obstructive pulmonary disease) 04/16/2019 Constipation 11/02/2020 DM type 2 (diabetes mellitus, type 2) 02/14/2017 Shortness of breath 02/14/2017 documented as of this encounter (statuses as of 06/13/2022) [facility]2019 History of Past illness Narrative* Problem Noted Date Resolved Date Diarrhea 06/18/2019 11/02/2020 Stage 3 chronic kidney disease 01/23/2018 0 11/02/2020 Hypercapnia 01/22/2018 11/02/2020 Pre-op testing 11/11/2017 01/03/2020 Overview: Added automatically from request for surgery [id number] Coronary disease 12/11/2011 11/02/2020 Morbid obesity 01/03/2020 Anxiety 11/21/2021 Sleep apnea 02/14/2017 COPD (chronic obstructive pulmonary disease) 04/16/2019 Constipation 11/02/2020 DM type 2 (diabetes mellitus, type 2) 02/14/2017 Shortness of breath 02/14/2017 documented as of this encounter (statuses as of 06/21/2022) [facility] History of Past illness Narrative* Problem Noted Date Resolved Date Diarrhea 06/18/2019 11/02/2020 Stage 3 chronic kidney disease 01/23/2018 0 11/02/2020 Hypercapnia 01/22/2018 11/02/2020 Pre-op testing 11/11/2017 01/03/2020 Overview: Added automatically from request for surgery [id number] Coronary disease 12/11/2011 11/02/2020 Morbid obesity 01/03/2020 Anxiety 11/21/2021 Sleep apnea 02/14/2017 COPD (chronic obstructive pulmonary disease) 04/16/2019 Constipation 11/02/2020 DM type 2 (diabetes mellitus, type 2) 02/14/2017 Shortness of breath 02/14/2017 documented as of this encounter (statuses as of 06/25/2022) [facility] History of Past illness Narrative* Problem Noted Date Resolved Date Diarrhea 06/18/2019 11/02/2020 Stage 3 chronic kidney disease 01/23/2018 0 11/02/2020 Hypercapnia 01/22/2018 11/02/2020 Pre-op testing 11/11/2017 01/03/2020 Overview: Added automatically from request for surgery [id number] Coronary disease 12/11/2011 11/02/2020 Morbid obesity 01/03/2020 Anxiety 11/21/2021 Sleep apnea 02/14/2017 COPD (chronic obstructive pulmonary disease) 04/16/2019 Constipation 11/02/2020 DM type 2 (diabetes mellitus, type 2) 02/14/2017 Shortness of breath 02/14/2017 documented as of this encounter (statuses as of 07/01/2022) [facility] History of Past illness Narrative* Problem Noted Date Resolved Date Diarrhea 06/18/2019 11/02/2020 Stage 3 chronic kidney disease 01/23/2018 0 11/02/2020 Hypercapnia 01/22/2018 11/02/2020 Pre-op testing 11/11/2017 01/03/2020 Overview: Added automatically from request for surgery [id number] Coronary disease 12/11/2011 11/02/2020 Morbid obesity 01/03/2020 Anxiety 11/21/2021 Sleep apnea 02/14/2017 COPD (chronic obstructive pulmonary disease) 04/16/2019 Constipation 11/02/2020 DM type 2 (diabetes mellitus, type 2) 02/14/2017 Shortness of breath 02/14/2017 documented as of this encounter (statuses as of 07/04/2022) [facility] History of Past illness Narrative* Problem Noted Date Resolved Date Diarrhea 06/18/2019 11/02/2020 Stage 3 chronic kidney disease 01/23/2018 0 11/02/2020 Hypercapnia 01/22/2018 11/02/2020 Pre-op testing 11/11/2017 01/03/2020 Overview: Added automatically from request for surgery [id number] Coronary disease 12/11/2011 11/02/2020 Morbid obesity 01/03/2020 Anxiety 11/21/2021 Sleep apnea 02/14/2017 COPD (chronic obstructive pulmonary disease) 04/16/2019 Constipation 11/02/2020 DM type 2 (diabetes mellitus, type 2) 02/14/2017 Shortness of breath 02/14/2017 documented as of this encounter (statuses as of 07/14/2022) [facility] History of Past illness Narrative* Problem Noted Date Resolved Date Diarrhea 06/18/2019 11/02/2020 Stage 3 chronic kidney disease 01/23/2018 0 11/02/2020 Hypercapnia 01/22/2018 11/02/2020 Pre-op testing 11/11/2017 01/03/2020 Overview: Added automatically from request for surgery [id number] Coronary disease 12/11/2011 11/02/2020 Morbid obesity 01/03/2020 Anxiety 11/21/2021 Sleep apnea 02/14/2017 COPD (chronic obstructive pulmonary disease) 04/16/2019 Constipation 11/02/2020 DM type 2 (diabetes mellitus, type 2) 02/14/2017 Shortness of breath 02/14/2017 documented as of this encounter (statuses as of 07/14/2022) [facility] History of Past illness Narrative* Problem Noted Date Resolved Date Diarrhea 06/18/2019 11/02/2020 Stage 3 chronic kidney disease 01/23/2018 0 11/02/2020 Hypercapnia 01/22/2018 11/02/2020 Pre-op testing 11/11/2017 01/03/2020 Overview: Added automatically from request for surgery [id number] Coronary disease 12/11/2011 11/02/2020 Morbid obesity 01/03/2020 Anxiety 11/21/2021 Sleep apnea 02/14/2017 COPD (chronic obstructive pulmonary disease) 04/16/2019 Constipation 11/02/2020 DM type 2 (diabetes mellitus, type 2) 02/14/2017 Shortness of breath 02/14/2017 documented as of this encounter (statuses as of 07/16/2022) [facility] History of Past illness Narrative* Problem Noted Date Resolved Date Diarrhea 06/18/2019 11/02/2020 Stage 3 chronic kidney disease 01/23/2018 0 11/02/2020 Hypercapnia 01/22/2018 11/02/2020 Pre-op testing 11/11/2017 01/03/2020 Overview: Added automatically from request for surgery [id number] Coronary disease 12/11/2011 11/02/2020 Morbid obesity 01/03/2020 Anxiety 11/21/2021 Sleep apnea 02/14/2017 COPD (chronic obstructive pulmonary disease) 04/16/2019 Constipation 11/02/2020 DM type 2 (diabetes mellitus, type 2) 02/14/2017 Shortness of breath 02/14/2017 documented as of this encounter (statuses as of 07/17/2022) [facility] History of Past illness Narrative* Problem Noted Date Resolved Date Diarrhea 06/18/2019 11/02/2020 Stage 3 chronic kidney disease 01/23/2018 0 11/02/2020 Hypercapnia 01/22/2018 11/02/2020 Pre-op testing 11/11/2017 01/03/2020 Overview: Added automatically from request for surgery [id number] Coronary disease 12/11/2011 11/02/2020 Morbid obesity 01/03/2020 Anxiety 11/21/2021 Sleep apnea 02/14/2017 COPD (chronic obstructive pulmonary disease) 04/16/2019 Constipation 11/02/2020 DM type 2 (diabetes mellitus, type 2) 02/14/2017 Shortness of breath 02/14/2017 documented as of this encounter (statuses as of 09/06/2022) [facility] History of Past illness Narrative* Problem Noted Date Resolved Date Diarrhea 06/18/2019 11/02/2020 Stage 3 chronic kidney disease 01/23/2018 0 11/02/2020 Hypercapnia 01/22/2018 11/02/2020 Pre-op testing 11/11/2017 01/03/2020 Overview: Added automatically from request for surgery [id number] Coronary disease 12/11/2011 11/02/2020 Morbid obesity 01/03/2020 Anxiety 11/21/2021 Sleep apnea 02/14/2017 COPD (chronic obstructive pulmonary disease) 04/16/2019 Constipation 11/02/2020 DM type 2 (diabetes mellitus, type 2) 02/14/2017 Shortness of breath 02/14/2017 documented as of this encounter (statuses as of 09/30/2022) [facility] History of Past illness Narrative* Problem Noted Date Resolved Date Diarrhea 06/18/2019 11/02/2020 Stage 3 chronic kidney disease 01/23/2018 0 11/02/2020 Hypercapnia 01/22/2018 11/02/2020 Pre-op testing 11/11/2017 01/03/2020 Overview: Added automatically from request for surgery [id number] Coronary disease 12/11/2011 11/02/2020 Morbid obesity 01/03/2020 Anxiety 11/21/2021 Sleep apnea 02/14/2017 COPD (chronic obstructive pulmonary disease) 04/16/2019 Constipation 11/02/2020 DM type 2 (diabetes mellitus, type 2) 02/14/2017 Shortness of breath 02/14/2017 documented as of this encounter (statuses as of 09/30/2022) [facility] History of Past illness Narrative* Problem Noted Date Resolved Date Diarrhea 06/18/2019 11/02/2020 Stage 3 chronic kidney disease 01/23/2018 0 11/02/2020 Hypercapnia 01/22/2018 11/02/2020 Pre-op testing 11/11/2017 01/03/2020 Overview: Added automatically from request for surgery [id number] Coronary disease 12/11/2011 11/02/2020 Morbid obesity 01/03/2020 Anxiety 11/21/2021 Sleep apnea 02/14/2017 COPD (chronic obstructive pulmonary disease) 04/16/2019 Constipation 11/02/2020 DM type 2 (diabetes mellitus, type 2) 02/14/2017 Shortness of breath 02/14/2017 documented as of this encounter (statuses as of 10/04/2022) [facility] History of Past illness Narrative* Problem Noted Date Resolved Date Diarrhea 06/18/2019 11/02/2020 Stage 3 chronic kidney disease 01/23/2018 0 11/02/2020 Hypercapnia 01/22/2018 11/02/2020 Pre-op testing 11/11/2017 01/03/2020 Overview: Added automatically from request for surgery [id number] Coronary disease 12/11/2011 11/02/2020 Morbid obesity 01/03/2020 Anxiety 11/21/2021 Sleep apnea 02/14/2017 COPD (chronic obstructive pulmonary disease) 04/16/2019 Constipation 11/02/2020 DM type 2 (diabetes mellitus, type 2) 02/14/2017 Shortness of breath 02/14/2017 documented as of this encounter (statuses as of 10/04/2022) [facility] History of Past illness Narrative* Problem Noted Date Resolved Date Diarrhea 06/18/2019 11/02/2020 Stage 3 chronic kidney disease 01/23/2018 0 11/02/2020 Hypercapnia 01/22/2018 11/02/2020 Pre-op testing 11/11/2017 01/03/2020 Overview: Added automatically from request for surgery [id number] Coronary disease 12/11/2011 11/02/2020 Morbid obesity 01/03/2020 Anxiety 11/21/2021 Sleep apnea 02/14/2017 COPD (chronic obstructive pulmonary disease) 04/16/2019 Constipation 11/02/2020 DM type 2 (diabetes mellitus, type 2) 02/14/2017 Shortness of breath 02/14/2017 documented as of this encounter (statuses as of 10/09/2022) [facility] History of Past illness Narrative* Problem Noted Date Resolved Date Diarrhea 06/18/2019 11/02/2020 Stage 3 chronic kidney disease 01/23/2018 0 11/02/2020 Hypercapnia 01/22/2018 11/02/2020 Pre-op testing 11/11/2017 01/03/2020 Overview: Added automatically from request for surgery [id number] Coronary disease 12/11/2011 11/02/2020 Morbid obesity 01/03/2020 Anxiety 11/21/2021 Sleep apnea 02/14/2017 COPD (chronic obstructive pulmonary disease) 04/16/2019 Constipation 11/02/2020 DM type 2 (diabetes mellitus, type 2) 02/14/2017 Shortness of breath 02/14/2017 documented as of this encounter (statuses as of 11/04/2022) [facility] History of Past illness Narrative* Problem Noted Date Resolved Date Diarrhea 06/18/2019 11/02/2020 Stage 3 chronic kidney disease 01/23/2018 0 11/02/2020 Hypercapnia 01/22/2018 11/02/2020 Pre-op testing 11/11/2017 01/03/2020 Overview: Added automatically from request for surgery [id number] Coronary disease 12/11/2011 11/02/2020 Morbid obesity 01/03/2020 Anxiety 11/21/2021 Sleep apnea 02/14/2017 COPD (chronic obstructive pulmonary disease) 04/16/2019 Constipation 11/02/2020 DM type 2 (diabetes mellitus, type 2) 02/14/2017 Shortness of breath 02/14/2017 documented as of this encounter (statuses as of 12/10/2022) [facility] History of Past illness Narrative* Problem Noted Date Resolved Date Diarrhea 06/18/2019 11/02/2020 Stage 3 chronic kidney disease 01/23/2018 0 11/02/2020 Hypercapnia 01/22/2018 11/02/2020 Pre-op testing 11/11/2017 01/03/2020 Overview: Added automatically from request for surgery [id number] Coronary disease 12/11/2011 11/02/2020 Morbid obesity 01/03/2020 Anxiety 11/21/2021 Sleep apnea 02/14/2017 COPD (chronic obstructive pulmonary disease) 04/16/2019 Constipation 11/02/2020 DM type 2 (diabetes mellitus, type 2) 02/14/2017 Shortness of breath 02/14/2017 documented as of this encounter (statuses as of 12/27/2022) [facility] History of Past illness Narrative* Problem Noted Date Resolved Date Diarrhea 06/18/2019 11/02/2020 Stage 3 chronic kidney disease 01/23/2018 0 11/02/2020 Hypercapnia 01/22/2018 11/02/2020 Pre-op testing 11/11/2017 01/03/2020 Overview: Added automatically from request for surgery [id number] Coronary disease 12/11/2011 11/02/2020 Morbid obesity 01/03/2020 Anxiety 11/21/2021 Sleep apnea 02/14/2017 COPD (chronic obstructive pulmonary disease) 04/16/2019 Constipation 11/02/2020 DM type 2 (diabetes mellitus, type 2) 02/14/2017 Shortness of breath 02/14/2017 documented as of this encounter (statuses as of 01/04/2023) [facility] History of Past illness Narrative* Problem Noted Date Resolved Date Diarrhea 06/18/2019 11/02/2020 Stage 3 chronic kidney disease 01/23/2018 0 11/02/2020 Hypercapnia 01/22/2018 11/02/2020 Pre-op testing 11/11/2017 01/03/2020 Overview: Added automatically from request for surgery [id number] Coronary disease 12/11/2011 11/02/2020 Morbid obesity 01/03/2020 Anxiety 11/21/2021 Sleep apnea 02/14/2017 COPD (chronic obstructive pulmonary disease) 04/16/2019 Constipation 11/02/2020 DM type 2 (diabetes mellitus, type 2) 02/14/2017 Shortness of breath 02/14/2017 documented as of this encounter (statuses as of 01/13/2023) [facility] History of Past illness Narrative* Problem Noted Date Resolved Date Diarrhea 06/18/2019 11/02/2020 Stage 3 chronic kidney disease 01/23/2018 0 11/02/2020 Hypercapnia 01/22/2018 11/02/2020 Pre-op testing 11/11/2017 01/03/2020 Overview: Added automatically from request for surgery [id number] Coronary disease 12/11/2011 11/02/2020 Morbid obesity 01/03/2020 Anxiety 11/21/2021 Sleep apnea 02/14/2017 COPD (chronic obstructive pulmonary disease) 04/16/2019 Constipation 11/02/2020 DM type 2 (diabetes mellitus, type 2) 02/14/2017 Shortness of breath 02/14/2017 documented as of this encounter (statuses as of 01/13/2023) [facility]09-27-2019 History of Past illness Narrative* Problem Noted Date Resolved Date Diarrhea 06/18/2019 11/02/2020 Stage 3 chronic kidney disease 01/23/2018 0 11/02/2020 Hypercapnia 01/22/2018 11/02/2020 Pre-op testing 11/11/2017 01/03/2020 Overview: Added automatically from request for surgery [id number] Coronary disease 12/11/2011 11/02/2020 Morbid obesity 01/03/2020 Anxiety 11/21/2021 Sleep apnea 02/14/2017 COPD (chronic obstructive pulmonary disease) 04/16/2019 Constipation 11/02/2020 DM type 2 (diabetes mellitus, type 2) 02/14/2017 Shortness of breath 02/14/2017 documented as of this encounter (statuses as of 01/14/2023) [facility]2019 History of Past illness Narrative* Problem Noted Date Resolved Date Diarrhea 06/18/2019 11/02/2020 Stage 3 chronic kidney disease 01/23/2018 0 11/02/2020 Hypercapnia 01/22/2018 11/02/2020 Pre-op testing 11/11/2017 01/03/2020 Overview: Added automatically from request for surgery [id number] Coronary disease 12/11/2011 11/02/2020 Morbid obesity 01/03/2020 Anxiety 11/21/2021 Sleep apnea 02/14/2017 COPD (chronic obstructive pulmonary disease) 04/16/2019 Constipation 11/02/2020 DM type 2 (diabetes mellitus, type 2) 02/14/2017 Shortness of breath 02/14/2017 documented as of this encounter (statuses as of 2023) [facility]2019 History of Past illness Narrative* Problem Noted Date Resolved Date Diarrhea 06/18/2019 11/02/2020 Stage 3 chronic kidney disease 01/23/2018 0 11/02/2020 Hypercapnia 01/22/2018 11/02/2020 Pre-op testing 11/11/2017 01/03/2020 Overview: Added automatically from request for surgery [id number] Coronary disease 12/11/2011 11/02/2020 Morbid obesity 01/03/2020 Anxiety 11/21/2021 Sleep apnea 02/14/2017 COPD (chronic obstructive pulmonary disease) 04/16/2019 Constipation 11/02/2020 DM type 2 (diabetes mellitus, type 2) 02/14/2017 Shortness of breath 02/14/2017 documented as of this encounter (statuses as of 01/25/2023) [facility] History of Past illness Narrative* Problem Noted Date Resolved Date Diarrhea 06/18/2019 11/02/2020 Stage 3 chronic kidney disease 01/23/2018 0 11/02/2020 Hypercapnia 01/22/2018 11/02/2020 Pre-op testing 11/11/2017 01/03/2020 Overview: Added automatically from request for surgery [id number] Coronary disease 12/11/2011 11/02/2020 Morbid obesity 01/03/2020 Anxiety 11/21/2021 Sleep apnea 02/14/2017 COPD (chronic obstructive pulmonary disease) 04/16/2019 Constipation 11/02/2020 DM type 2 (diabetes mellitus, type 2) 02/14/2017 Shortness of breath 02/14/2017 documented as of this encounter (statuses as of 02/04/2023) [facility]2019 History of Past illness Narrative* Problem Noted Date Resolved Date Diarrhea 06/18/2019 11/02/2020 Stage 3 chronic kidney disease 01/23/2018 0 11/02/2020 Hypercapnia 01/22/2018 11/02/2020 Pre-op testing 11/11/2017 01/03/2020 Overview: Added automatically from request for surgery [id number] Coronary disease 12/11/2011 11/02/2020 Morbid obesity 01/03/2020 Anxiety 11/21/2021 Sleep apnea 02/14/2017 COPD (chronic obstructive pulmonary disease) 04/16/2019 Constipation 11/02/2020 DM type 2 (diabetes mellitus, type 2) 02/14/2017 Shortness of breath 02/14/2017 documented as of this encounter (statuses as of 03/18/2023) [facility] History of Past illness Narrative* Problem Noted Date Resolved Date Diarrhea 06/18/2019 11/02/2020 Stage 3 chronic kidney disease 01/23/2018 0 11/02/2020 Hypercapnia 01/22/2018 11/02/2020 Pre-op testing 11/11/2017 01/03/2020 Overview: Added automatically from request for surgery [id number] Coronary disease 12/11/2011 11/02/2020 Morbid obesity 01/03/2020 Anxiety 11/21/2021 Sleep apnea 02/14/2017 COPD (chronic obstructive pulmonary disease) 04/16/2019 Constipation 11/02/2020 DM type 2 (diabetes mellitus, type 2) 02/14/2017 Shortness of breath 02/14/2017 documented as of this encounter (statuses as of 03/18/2023) [facility] History of Past illness Narrative* Problem Noted Date Resolved Date Diarrhea 06/18/2019 11/02/2020 Stage 3 chronic kidney disease 01/23/2018 0 11/02/2020 Hypercapnia 01/22/2018 11/02/2020 Pre-op testing 11/11/2017 01/03/2020 Overview: Added automatically from request for surgery [id number] Coronary disease 12/11/2011 11/02/2020 Morbid obesity 01/03/2020 Anxiety 11/21/2021 Sleep apnea 02/14/2017 COPD (chronic obstructive pulmonary disease) 04/16/2019 Constipation 11/02/2020 DM type 2 (diabetes mellitus, type 2) 02/14/2017 Shortness of breath 02/14/2017 documented as of this encounter (statuses as of 03/19/2023) [facility] History of Past illness Narrative* Problem Noted Date Resolved Date Diarrhea 06/18/2019 11/02/2020 Stage 3 chronic kidney disease 01/23/2018 0 11/02/2020 Hypercapnia 01/22/2018 11/02/2020 Pre-op testing 11/11/2017 01/03/2020 Overview: Added automatically from request for surgery [id number] Coronary disease 12/11/2011 11/02/2020 Morbid obesity 01/03/2020 Anxiety 11/21/2021 Sleep apnea 02/14/2017 COPD (chronic obstructive pulmonary disease) 04/16/2019 Constipation 11/02/2020 DM type 2 (diabetes mellitus, type 2) 02/14/2017 Shortness of breath 02/14/2017 documented as of this encounter (statuses as of 03/20/2023) [facility] History of Past illness Narrative* Problem Noted Date Resolved Date Diarrhea 06/18/2019 11/02/2020 Stage 3 chronic kidney disease 01/23/2018 0 11/02/2020 Hypercapnia 01/22/2018 11/02/2020 Pre-op testing 11/11/2017 01/03/2020 Overview: Added automatically from request for surgery [id number] Coronary disease 12/11/2011 11/02/2020 Morbid obesity 01/03/2020 Anxiety 11/21/2021 Sleep apnea 02/14/2017 COPD (chronic obstructive pulmonary disease) 04/16/2019 Constipation 11/02/2020 DM type 2 (diabetes mellitus, type 2) 02/14/2017 Shortness of breath 02/14/2017 documented as of this encounter (statuses as of 03/24/2023) [facility] History of Past illness Narrative* Problem Noted Date Resolved Date Diarrhea 06/18/2019 11/02/2020 Stage 3 chronic kidney disease 01/23/2018 0 11/02/2020 Hypercapnia 01/22/2018 11/02/2020 Pre-op testing 11/11/2017 01/03/2020 Overview: Added automatically from request for surgery [id number] Coronary disease 12/11/2011 11/02/2020 Morbid obesity 01/03/2020 Anxiety 11/21/2021 Sleep apnea 02/14/2017 COPD (chronic obstructive pulmonary disease) 04/16/2019 Constipation 11/02/2020 DM type 2 (diabetes mellitus, type 2) 02/14/2017 Shortness of breath 02/14/2017 documented as of this encounter (statuses as of 03/25/2023) [facility] History of Past illness Narrative* Problem Noted Date Diagnosed Date Resolved Date Diarrhea 06/18/2019 11/02/2020 Stage 3 chronic kidney disease 01/23/2018 11/02/2020 Hypercapnia 01/22/2018 11/02/2020 Pre-op testing 11/11/2017 01/03/2020 Overview: Added automatically from request for surgery [id number] Coronary disease 12/11/2011 11/02/2020 Morbid obesity 01/03/2020 Anxiety 11/21/2021 Sleep apnea 02/14/2017 COPD (chronic obstructive pulmonary disease) 04/16/2019 Constipation 11/02/2020 DM type 2 (diabetes mellitus, type 2) 02/14/2017 Shortness of breath 02/15/20 17 documented as of this encounter (statuses as of 04/04/2023) [facility] History of Past illness Narrative* Problem Noted Date Diagnosed Date Resolved Date Diarrhea 06/18/2019 11/02/2020 Stage 3 chronic kidney disease 01/23/2018 11/02/2020 Hypercapnia 01/22/2018 11/02/2020 Pre-op testing 11/11/2017 01/03/2020 Overview: Added automatically from request for surgery [id number] Coronary disease 12/11/2011 11/02/2020 Morbid obesity 01/03/2020 Anxiety 11/21/2021 Sleep apnea 02/14/2017 COPD (chronic obstructive pulmonary disease) 04/16/2019 Constipation 11/02/2020 DM type 2 (diabetes mellitus, type 2) 02/14/2017 Shortness of breath 02/15/20 17 documented as of this encounter (statuses as of 04/23/2023) [facility] History of Past illness Narrative* Problem Noted Date Diagnosed Date Resolved Date Diarrhea 06/18/2019 11/02/2020 Stage 3 chronic kidney disease 01/23/2018 11/02/2020 Hypercapnia 01/22/2018 11/02/2020 Pre-op testing 11/11/2017 01/03/2020 Overview: Added automatically from request for surgery [id number] Coronary disease 12/11/2011 11/02/2020 Morbid obesity 01/03/2020 Anxiety 11/21/2021 Sleep apnea 02/14/2017 COPD (chronic obstructive pulmonary disease) 04/16/2019 Constipation 11/02/2020 DM type 2 (diabetes mellitus, type 2) 02/14/2017 Shortness of breath 02/15/20 17 documented as of this encounter (statuses as of 05/09/2023) [facility] History of Past illness Narrative* Problem Noted Date Diagnosed Date Resolved Date Diarrhea 06/18/2019 11/02/2020 Stage 3 chronic kidney disease 01/23/2018 11/02/2020 Hypercapnia 01/22/2018 11/02/2020 Pre-op testing 11/11/2017 01/03/2020 Overview: Added automatically from request for surgery [id number] Coronary disease 12/11/2011 11/02/2020 Morbid obesity 01/03/2020 Anxiety 11/21/2021 Sleep apnea 02/14/2017 COPD (chronic obstructive pulmonary disease) 04/16/2019 Constipation 11/02/2020 DM type 2 (diabetes mellitus, type 2) 02/14/2017 Shortness of breath 02/15/20 17 documented as of this encounter (statuses as of 05/13/2023) [facility] History of Past illness Narrative* Problem Noted Date Diagnosed Date Resolved Date Diarrhea 06/18/2019 11/02/2020 Stage 3 chronic kidney disease 01/23/2018 11/02/2020 Hypercapnia 01/22/2018 11/02/2020 Pre-op testing 11/11/2017 01/03/2020 Overview: Added automatically from request for surgery [id number] Coronary disease 12/11/2011 11/02/2020 Morbid obesity 01/03/2020 Anxiety 11/21/2021 Sleep apnea 02/14/2017 COPD (chronic obstructive pulmonary disease) 04/16/2019 Constipation 11/02/2020 DM type 2 (diabetes mellitus, type 2) 02/14/2017 Shortness of breath 02/15/20 17 documented as of this encounter (statuses as of 05/16/2023) [facility] History of Past illness Narrative* Problem Noted Date Diagnosed Date Resolved Date Diarrhea 06/18/2019 11/02/2020 Stage 3 chronic kidney disease 01/23/2018 11/02/2020 Hypercapnia 01/22/2018 11/02/2020 Pre-op testing 11/11/2017 01/03/2020 Overview: Added automatically from request for surgery [id number] Coronary disease 12/11/2011 11/02/2020 Morbid obesity 01/03/2020 Anxiety 11/21/2021 Sleep apnea 02/14/2017 COPD (chronic obstructive pulmonary disease) 04/16/2019 Constipation 11/02/2020 DM type 2 (diabetes mellitus, type 2) 02/14/2017 Shortness of breath 02/15/20 17 documented as of this encounter (statuses as of 06/03/2023) [facility]2019 History of Past illness Narrative* Problem Noted Date Diagnosed Date Resolved Date Diarrhea 06/18/2019 11/02/2020 Stage 3 chronic kidney disease 01/23/2018 11/02/2020 Hypercapnia 01/22/2018 11/02/2020 Pre-op testing 11/11/2017 01/03/2020 Overview: Added automatically from request for surgery [id number] Coronary disease 12/11/2011 11/02/2020 Morbid obesity 01/03/2020 Anxiety 11/21/2021 Sleep apnea 02/14/2017 COPD (chronic obstructive pulmonary disease) 04/16/2019 Constipation 11/02/2020 DM type 2 (diabetes mellitus, type 2) 02/14/2017 Shortness of breath 02/15/20 17 documented as of this encounter (statuses as of 06/04/2023) [facility] History of Past illness Narrative* Problem Noted Date Diagnosed Date Resolved Date Diarrhea 06/18/2019 11/02/2020 Stage 3 chronic kidney disease 01/23/2018 11/02/2020 Hypercapnia 01/22/2018 11/02/2020 Pre-op testing 11/11/2017 01/03/2020 Overview: Added automatically from request for surgery [id number] Coronary disease 12/11/2011 11/02/2020 Morbid obesity 01/03/2020 Anxiety 11/21/2021 Sleep apnea 02/14/2017 COPD (chronic obstructive pulmonary disease) 04/16/2019 Constipation 11/02/2020 DM type 2 (diabetes mellitus, type 2) 02/14/2017 Shortness of breath 02/15/20 17 documented as of this encounter (statuses as of 06/11/2023) [facility] History of Past illness Narrative* Problem Noted Date Diagnosed Date Resolved Date Diarrhea 06/18/2019 11/02/2020 Stage 3 chronic kidney disease 01/23/2018 11/02/2020 Hypercapnia 01/22/2018 11/02/2020 Pre-op testing 11/11/2017 01/03/2020 Overview: Added automatically from request for surgery [id number] Coronary disease 12/11/2011 11/02/2020 Morbid obesity 01/03/2020 Anxiety 11/21/2021 Sleep apnea 02/14/2017 COPD (chronic obstructive pulmonary disease) 04/16/2019 Constipation 11/02/2020 DM type 2 (diabetes mellitus, type 2) 02/14/2017 Shortness of breath 02/15/20 17 documented as of this encounter (statuses as of 06/13/2023) [facility] History of Past illness Narrative* Problem Noted Date Diagnosed Date Resolved Date Diarrhea 06/18/2019 11/02/2020 Stage 3 chronic kidney disease 01/23/2018 11/02/2020 Hypercapnia 01/22/2018 11/02/2020 Pre-op testing 11/11/2017 01/03/2020 Overview: Added automatically from request for surgery [id number] Coronary disease 12/11/2011 11/02/2020 Morbid obesity 01/03/2020 Anxiety 11/21/2021 Sleep apnea 02/14/2017 COPD (chronic obstructive pulmonary disease) 04/16/2019 Constipation 11/02/2020 DM type 2 (diabetes mellitus, type 2) 02/14/2017 Shortness of breath 02/15/20 17 documented as of this encounter (statuses as of 07/07/2023) [facility] History of Past illness Narrative* Problem Noted Date Diagnosed Date Resolved Date Diarrhea 06/18/2019 11/02/2020 Stage 3 chronic kidney disease 01/23/2018 11/02/2020 Hypercapnia 01/22/2018 11/02/2020 Pre-op testing 11/11/2017 01/03/2020 Overview: Added automatically from request for surgery [id number] Coronary disease 12/11/2011 11/02/2020 Morbid obesity 01/03/2020 Anxiety 11/21/2021 Sleep apnea 02/14/2017 COPD (chronic obstructive pulmonary disease) 04/16/2019 Constipation 11/02/2020 DM type 2 (diabetes mellitus, type 2) 02/14/2017 Shortness of breath 02/15/20 17 documented as of this encounter (statuses as of 07/27/2023) [facility] History of Past illness Narrative* Problem Noted Date Diagnosed Date Resolved Date Diarrhea 06/18/2019 11/02/2020 Stage 3 chronic kidney disease 01/23/2018 11/02/2020 Hypercapnia 01/22/2018 11/02/2020 Pre-op testing 11/11/2017 01/03/2020 Overview: Added automatically from request for surgery [id number] Coronary disease 12/11/2011 11/02/2020 Morbid obesity 01/03/2020 Anxiety 11/21/2021 Sleep apnea 02/14/2017 COPD (chronic obstructive pulmonary disease) 04/16/2019 Constipation 11/02/2020 DM type 2 (diabetes mellitus, type 2) 02/14/2017 Shortness of breath 02/15/20 17 documented as of this encounter (statuses as of 08/13/2023) [facility] History of Past illness Narrative* Problem Noted Date Diagnosed Date Resolved Date Diarrhea 06/18/2019 11/02/2020 Stage 3 chronic kidney disease 01/23/2018 11/02/2020 Hypercapnia 01/22/2018 11/02/2020 Pre-op testing 11/11/2017 01/03/2020 Overview: Added automatically from request for surgery [id number] Coronary disease 12/11/2011 11/02/2020 Morbid obesity 01/03/2020 Anxiety 11/21/2021 Sleep apnea 02/14/2017 COPD (chronic obstructive pulmonary disease) 04/16/2019 Constipation 11/02/2020 DM type 2 (diabetes mellitus, type 2) 02/14/2017 Shortness of breath 02/15/20 17 documented as of this encounter (statuses as of 08/22/2023) [facility] History of Past illness Narrative* Problem Noted Date Diagnosed Date Resolved Date Diarrhea 06/18/2019 11/02/2020 Stage 3 chronic kidney disease 01/23/2018 11/02/2020 Hypercapnia 01/22/2018 11/02/2020 Pre-op testing 11/11/2017 01/03/2020 Overview: Added automatically from request for surgery [id number] Coronary disease 12/11/2011 11/02/2020 Morbid obesity 01/03/2020 Anxiety 11/21/2021 Sleep apnea 02/14/2017 COPD (chronic obstructive pulmonary disease) 04/16/2019 Constipation 11/02/2020 DM type 2 (diabetes mellitus, type 2) 02/14/2017 Shortness of breath 02/15/20 17 documented as of this encounter (statuses as of 09/12/2023) [facility] Evaluation note* Diagnosis Onset Date Resolution Status Atherosclerotic heart diseas e of [place] coronary artery without angina pectoris acute Diabetes mellitus type 2 in obese acute Presence of stent in coronary artery November, acute Chest pain resolved Coagulopathy resolved Contusion of multiple sites resolved Elevated serum creatinine re solved Muscle strain resolved Atherosclerotic heart diseas e of [place] coronary artery without angina pectoris acute Chest pain acute Pulmonary hypertension acute Essential hypertension chron ic Mixed hyperlipidemia [facility] Work Phone: [phone]) 874-644603-01-2004 Evaluation note* Diagnosis Onset Date Resolution Status Atrial fibrillation acute Chest pain acute History of CAD (coronary artery disease) acute History of hypertension acut e Presence of stent in coronary artery November, acute Essential hypertension chron ic [facility] Work Phone: 1(118) 206-799203-01-2004 Evaluation note* Diagnosis Onset Date Resolution Status Atrial fibrillation acute History of CAD (coronary artery disease) acute History of hypertension acut e Presence of stent in coronary artery November, acute Essential hypertension chron ic Chest pain resolved Atrial fibrillation acute History of coronary artery stent placement May 232022 acute Essential hypertension chron ic Mixed hyperlipidemia chronic Anemia acute Common bile duct dilatation acute Complicated urinary tract infection acute Diabetes mellitus type 2 in obese acute Elevated transaminase level acute Encephalopathy acute acute History of hypertension acut e Paroxysmal atrial fibrillation acute Presence of stent in coronary artery November, acute Pulmonary hypertension [facility] Work Phone: [phone]) 515-764703-01-2004 Evaluation note* Diagnosis Onset Date Resolution Status Atrial fibrillation acute History of CAD (coronary artery disease) acute History of hypertension acut e Presence of stent in coronary artery November, acute Essential hypertension chron ic Chest pain resolved Atrial fibrillation acute History of coronary artery stent placement May 232022 acute Essential hypertension chron ic Mixed hyperlipidemia chronic Anemia acute Choledocholithiasis acute Common bile duct dilatation acute Complicated urinary tract infection acute Diabetes mellitus type 2 in obese acute Elevated transaminase level acute Encephalopathy acute acute History of hypertension acut e Paroxysmal atrial fibrillation acute Presence of stent in coronary artery November, acute Pulmonary hypertension [facility] Work Phone: Discharge summary Author Reyna Champagne [facility] August 20, 2023 3:49pm Note Date/Time August 20, 2023 3:28pm [facility] Medical Records Department [address] [place] [id number] Instructions for Home/Discharge Instructions 08/20/23 1526 MR#: [id number] Acct: [id number] Name: TMAIA PANDA Rep #:[id number] : [id number] 68 From: Reyna Champagne MD PCP: Dr. Bhupendra Oliveira MD Status :ADM IN Discharge Instructions Diet Discharge Diet: - (Cardiac diet) Activity Discharge Activity: Use Walker and - (Increase activity as tolerated) Follow Up Care Test Results: Test results from this visit will be discussed in further detail at your follow- up appointment, if applicable. Discharge Plan Admission Admit Date/Time: 08/13/23 19:25 Primary Reason for Your Visit: Right upper quadrant pain and confusion Attending Provider: Reyna Champagne Primary Care Provider: Bhupendra Oliveira Consulting Providers: Yvon Wilson; Syed Montanez; Yvon Hogan Instructions Patient Instructions: ED Fall Prevention Additional Instructions / Restrictions: DISCHARGE INSTRUCTIONS PLEASE READ *Please take this with you to your next doctors appointment* -You will need to follow-up with Dr. Lewis with GI in his office upon discharge. Please call his office to schedule your hospital follow-up appointment (ph. [phone]) -Continue your Eliquis and Plavix but you do not need to take aspirin at this time. 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 Please call their office upon discharge to obtain order for lab work. -Due to several low blood sugars your long-acting insulin has been decreased to 45 units, will be important to continue to monitor your glucose and to hold yourlong-acting insulin if your glucose is less than 100 or if there is any concern that giving yourself the insulin will make you hypoglycemic. Additionally wouldhold any of your short acting insulin if your glucose is less than 100 before eating or if you are not planning on eating a meal with a regular carb consistent meals are encouraged. It is very likely you will need further monitoring and adjustment of your insulin moving forward so please monitor this closely and log your glucoses and follow-up closely with your primary care physician -Your metoprolol was decreased to 50 mg twice daily and you are no longer takingyour isosorbide mononitrate based on your blood pressure and heart rates. Thesealso may need further adjusting in the future please follow-up with your primarycare physician upon discharge -Please call your primary care provider's office upon discharge to schedule a hospital follow up within 1 week. -For any concerning signs or symptoms please call 911 or proceed to the nearest emergency department Discharge Orders/Prescriptions Prescriptions: Continued allopurinol 100 mg tablet 100 mg PO DAILY buspirone 10 mg tablet 10 mg PO BID Patient Comments: PER PHARMACY PT TAKES 1 TAB (10 MG) IN THE MORNING AND AFTERNOON AND TAKES 1.5 TAB (15 MG) IN THE EVENING Rx Instructions: PER PHARMACY PT TAKES 1 TAB (10 MG) IN THE MORNING AND AFTERNOON AND TAKES 1.5 TAB (15 MG) IN THE EVENING Saline Mist 0.65 % aerosol,spray 2 spray intranasal TID PRN ranolazine 500 mg tablet extended release 12 hr 500 mg PO BID Qty: 60 11RF levothyroxine 100 MCG tablet 100 mcg PO DAILY Patient Comments: thyroid duloxetine 60 mg capsule,delayed release(DR/EC) 60 mg PO DAILY Patient Comments: mental health ascorbic acid (vitamin C) 500 MG tablet 500 mg PO DAILY@1700 Patient Comments: Supplement fexofenadine 180 mg tablet 180 mg PO DAILY cholecalciferol (vitamin D3) 50 MCG capsule 2,000 unit PO DAILY ferrous sulfate 325 mg (65 mg iron) Tablet 325 mg PO DAILY amlodipine 5 mg tablet 5 mg PO DAILY albuterol sulfate 90 mcg/actuation HFA aerosol inhaler 2 puff INHALATION PRN PRN (Reason: COPD) alendronate 70 mg tablet 70 mg PO TU buspirone 10 mg tablet 15 mg PO QHS Patient Comments: PER PHARMACY PT TAKES 1 TAB (10 MG) IN THE MORNING AND AFTERNOON AND TAKES 1.5 TAB (15 MG) IN THE EVENING Rx Instructions: PER PHARMACY PT TAKES 1 TAB (10 MG) IN THE MORNING AND AFTERNOON AND TAKES 1.5 TAB (15 MG) IN THE EVENING nystatin [Nyamyc] 100,000 unit/gram powder 1 applic TOPICAL TID PRN triamcinolone acetonide 0.1 % cream 1 applic TOPICAL DAILY PRN cyclobenzaprine 10 mg tablet 10 mg PO BID clopidogrel 75 mg tablet 75 mg PO DAILY Qty: 30 1RF insulin lispro 100 unit/mL insulin pen 14 unit SC LUNCH Qty: 15 0RF Rx Instructions: hold if glucose <100 insulin lispro 100 unit/mL insulin pen 14 unit SC BREAKFAST Qty: 15 0RF Rx Instructions: hold if glucose <100 insulin lispro 100 unit/mL insulin pen 24 unit SC DINNER Qty: 15 0RF Rx Instructions: hold if glucose <100 nitroglycerin 0.4 mg tablet, sublingual 0.4 mg sublingual Q5-15M PRN (Reason: chest pain) Qty: 25 3RF Eliquis 5 mg tablet 5 mg PO BID Qty: 60 11RF famotidine 20 mg tablet 20 mg PO DAILY Qty: 30 11RF Changed metoprolol tartrate 100 mg tablet 50 mg PO BID Qty: 30 0RF insulin glargine [Lantus Solostar U-100 Insulin] 100 unit/mL (3 mL) insulin pen 45 unit SC BID Qty: 15 0RF Held potassium chloride 10 mEq tablet extended release 10 meq PO DAILY Hold Instructions: Resume on 08/23/23. atorvastatin 40 MG tablet 40 mg PO QHS Hold Instructions: Resume on 08/23/23. Patient Comments: cholesterol furosemide 20 MG tablet 20 mg PO BID Hold Instructions: Resume on 08/23/23. Discontinued oxycodone 5 mg tablet 5 mg PO Q8H aspirin 81 mg tablet,delayed release (DR/EC) 81 mg PO DAILY isosorbide mononitrate 120 mg tablet extended release 24 hr 120 mg PO DAILY Qty: 30 12RF Referrals / Follow Up: Bhupendra Oliveira MD [Primary Care Provider] - Within 1 Week Jeff Lewis DO [Med Staff - Active Staff] - ( -You will need to follow-up with Dr. Lewis with GI in his office upon discharge. Please call his office to schedule your hospital follow-up appointment (. [phone])) Disposition Disposition (needs filled in before D/C Order can be placed): Home Health Service 08/20/23 1668<Electronically signed by Reyna Champagne MD>Reyna Champagne MD CC: Dr. Bhupendra Oliveira MD; Dr. Yvon Hogan MD; Dr. Yvon Wilson DO;Dr. Syed Montanez MD ~ Signed [facility] Work Phone: Evaluation + Plan note Future Appointments [facility] Evalunenqs noteNo assessment information available [facility] Work Phone: Evaluation note* Diagnosis Fall in home, initial encounter- Primary Closed fracture of one rib of left side, initial encounter Abrasion of left elbow, initial encounter Acute pain of left shoulder Acute hip pain, left Acute pain of left knee [facility] Diagnosis Hyperuricemia Other abnormal blood chemistry Globus sensation Gastrointestinal malfunction arising from mental factors Hoarseness of voice Dysphonia GERD without esophagitis Esophageal reflux Sleeping difficulty Sleep disturbance, unspecified [facility] Diagnosis Encounter for screening mammogram for breast cancer [facility] Diagnosis Epistaxis- Primary Melanotic stools Blood in stool Dusky feet Other symptoms involving skin and integumentary tissues Type 2 diabetes mellitus with diabetic neuropathy, with long-term current use of insulin (HCC) Type 2 diabetes mellitus with hyperglycemia, with long-term current use of insulin (HCC) Essential hypertension Unspecified essential hypertension [facility] Diagnosis Anemia, unspecified type- Primary [facility]* Diagnosis Congestive heart failure, unspecified HF chronicity, unspecified heart failure type ([facility]) Anxiety with depression Pruritus of skin Unspecified pruritic disorder [facility] Diagnosis Itching- Primary Unspecified pruritic disorder [facility] Diagnosis Dusky feet- Primary Other symptoms involving skin and integumentary tissues Type 2 diabetes mellitus with diabetic neuropathy, with long-term current use of insulin ([facility]) Urinary frequency Essential hypertension Unspecified essential hypertension Epistaxis 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 [facility] Diagnosis Anemia, unspecified type [facility] Diagnosis Type 2 diabetes mellitus with diabetic neuropathy, with long-term current use of insulin ([facility])- Primary Positive urine drug screen Nonspecific abnormal toxicological findings Acute left flank pain Abdominal pain, unspecified site Tinea pedis of both feet [place] treated with BiPAP PAD (peripheral artery disease) ([facility]) Peripheral vascular disease, unspecified Dusky feet Other symptoms involving skin and integumentary tissues Essential hypertension Unspecified essential hypertension [facility] Diagnosis Peripheral arterial disease (HCC)- Primary Peripheral vascular disease, unspecified Dusky feet Other symptoms involving skin and integumentary tissues [facility]* Diagnosis Onset Date Resolution Status Pulmonary hypertension acute Atherosclerotic heart diseas e of [place] coronary artery without angina pectoris chronic Essential hypertension chron ic Mixed hyperlipidemia chronic Paroxysmal A-fib [facility] Work Phone: Evaluation note* Diagnosis Anxiety with depression [facility]* Diagnosis Type 2 diabetes mellitus with diabetic neuropathy, with long-term current use of insulin (HCC) [facility] Diagnosis Type 2 diabetes mellitus with diabetic neuropathy, with long-term current use of insulin ([facility])- Primary Epistaxis Anemia, unspecified type Essential hypertension Unspecified essential hypertension AF (paroxysmal atrial fibrillation) (HCC) Atrial fibrillation Need for influenza vaccination Need for prophylactic vaccination and inoculation against influenza Need for COVID-19 vaccine [facility] Diagnosis Urinary incontinence, unspecified type- Primary Urinary frequency Type 2 diabetes mellitus with diabetic neuropathy, with long-term current use of insulin (HCC) Incontinence of feces, unspecified fecal incontinence type Itching Unspecified pruritic disorder Candidal intertrigo Candidiasis of skin and nails [facility] Diagnosis Hyperuricemia Other abnormal blood chemistry Globus sensation Gastrointestinal malfunction arising from mental factors Hoarseness of voice Dysphonia GERD without esophagitis Esophageal reflux Sleeping difficulty Sleep disturbance, unspecified Anemia, unspecified type [facility] Diagnosis Onset Date Resolution Status Pulmonary hypertension acute Atherosclerotic heart diseas e of [place] coronary artery without angina pectoris chronic Essential hypertension chron ic Mixed hyperlipidemia chronic Paroxysmal A-fib chronic Anxiety acute Chest pain acute Closed intertrochanteric fracture of left femur acute Coagulopathy acute Contusion of multiple sites acute Fall at home acute Muscle strain acute [facility] Work Phone: Evaluation note* Diagnosis Onset Date Resolution Status Pulmonary hypertension acute Atherosclerotic heart diseas e of [place] coronary artery without angina pectoris chronic Essential hypertension chron ic Mixed hyperlipidemia chronic Paroxysmal A-fib chronic Anxiety acute Chest pain acute Closed intertrochanteric fracture of left femur acute Coagulopathy acute Contusion of multiple sites acute Elevated serum creatinine ac [place] Fall at home acute Muscle strain acute Atherosclerotic heart diseas e of [place] coronary artery without angina pectoris chronic Chronic respiratory insufficiency chronic COPD (chronic obstructive pulmonary disease) chronic Diabetes mellitus type 2 in obese chronic PARESH (obstructive sleep apnea) chronic Paroxysmal A-fib chronic Presence of stent in coronary artery November, chronic [facility] Work Phone: Evaluation note* Diagnosis Congestive heart failure, unspecified HF chronicity, unspecified heart failure type ([facility]) [facility] Diagnosis Onset Date Resolution Status Pulmonary hypertension acute Essential hypertension chron ic Mixed hyperlipidemia chronic Chest pain resolved Coagulopathy resolved Contusion of multiple sites resolved Elevated serum creatinine re solved Muscle strain resolved [facility] Work Phone: Evaluation note* Diagnosis Pre-operative clearance- Primary Preoperative examination, unspecified Closed fracture of left hip with delayed healing, subsequent encounter At high risk for falls Personal history of fall AF (paroxysmal atrial fibrillation) (HCC) Atrial fibrillation Chest pain, unspecified type Type 2 diabetes mellitus with diabetic neuropathy, with long-term current use of insulin (HCC) Essential hypertension Unspecified essential hypertension Hyperlipidemia, unspecified hyperlipidemia type Hypothyroidism, acquired Unspecified hypothyroidism Pulmonary HTN (HCC) Other chronic pulmonary heart diseases Chronic respiratory failure with hypercapnia (HCC) Chronic respiratory failure On home oxygen therapy Dependence on supplemental oxygen Stage 3 chronic kidney disease, unspecified whether stage 3a or 3b CKD (HCC) Type 2 diabetes mellitus with stage 3 chronic kidney disease, with long-term current use of insulin, unspecified whether stage 3a or 3b CKD (HCC) Diabetic gastroparesis associated with type 2 diabetes mellitus (HCC) Type II or unspecified type diabetes mellitus with neurological manifestations, not stated as uncontrolled Chronic diastolic congestive heart failure (HCC) Chronic diastolic heart failure 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* Diagnosis At high risk for falls- Primary Personal history of fall Closed fracture of left hip with delayed healing, subsequent encounter [facility]* Diagnosis Anemia, unspecified type Anxiety with depression [facility]* Diagnosis Onset Date Resolution Status Atherosclerotic heart diseas e of [place] coronary artery without angina pectoris acute Chest pain acute Pulmonary hypertension acute Essential hypertension chron ic Mixed hyperlipidemia chronic Paroxysmal A-fib chronic Atherosclerotic heart diseas e of [place] coronary artery without angina pectoris acute Chest pain acute Pre-op evaluation acute Pulmonary hypertension acute Essential hypertension chron ic Mixed hyperlipidemia chronic Paroxysmal A-fib chronic Closed intertrochanteric fracture of left femur acute Diabetes mellitus type [address] [facility] Work Phone: Evaluation note* Diagnosis Foot pain, left- Primary Pain in limb [facility]* Diagnosis Encounter for screening mammogram for breast cancer documented [facility]* Diagnosis At risk for falling- Primary Personal history of fall Fracture of hip, closed, left, with delayed healing, subsequent encounter Pulmonary HTN (HCC) Other chronic pulmonary heart diseases On home oxygen therapy Dependence on supplemental oxygen [facility] Urinary incontinence, unspecified type- Primary [facility]* Diagnosis Anemia, unspecified type Globus sensation Gastrointestinal malfunction arising from mental factors Hoarseness of voice Dysphonia GERD without esophagitis Esophageal reflux Hyperuricemia Other abnormal blood chemistry [facility]* Diagnosis Tinea pedis of left foot- Primary Dermatophytosis of foot Blister of toe of left foot, initial encounter Dermatitis Contact dermatitis and other eczema, due to unspecified cause [facility]* Diagnosis Type 2 diabetes mellitus with diabetic neuropathy, with long-term current use of insulin ([facility])- Primary Fall in home, initial encounter Injury of head, initial encounter Essential hypertension Unspecified essential hypertension Petechiae Spontaneous ecchymoses 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rder ([facility]) [facility] Diagnosis Tinea pedis of left foot- Primary Dermatophytosis of foot Dermatitis Contact dermatitis and other eczema, due to unspecified cause [facility]* Diagnosis Onset Date Resolution Status Closed intertrochanteric fracture of left femur acute Diabetes mellitus type 2 in obese [facility] Work Phone: Evaluation note* Diagnosis Labial cyst- Primary Other specified noninflammatory disorder of vulva and perineum [facility]* Diagnosis Anemia, unspecified type Anxiety with depression [facility] Diagnosis Type 2 diabetes mellitus with hyperglycemia, with long-term current use of insulin ([facility])- Primary Coronary artery disease of [place] artery of [place] heart with stable angina pectoris (HCC) [facility] Diagnosis Type 2 diabetes mellitus with hyperglycemia, with long-term current use of insulin ([facility]) [facility]* Diagnosis Type 2 diabetes mellitus with diabetic neuropathy, with long-term current use of insulin (HCC) Type 2 diabetes mellitus with hyperglycemia, with long-term current use of insulin ([facility]) [facility] Diagnosis Onychomycosis- Primary Dermatophytosis of nail Pain in toe of right foot Pain in limb Pain in toe of left foot Pain in limb Peripheral arterial disease (HCC) Peripheral vascular disease, unspecified Other diabetic neurological complication associated with type 2 diabetes mellitus ([facility]) [facility] Diagnosis Hyperuricemia Other abnormal blood chemistry Anemia, unspecified type Globus sensation Gastrointestinal malfunction arising from mental factors Hoarseness of voice Dysphonia GERD without esophagitis Esophageal reflux documented [facility]* Diagnosis Type 2 diabetes mellitus with diabetic neuropathy, with long-term current use of insulin ([facility]) [facility]* Diagnosis Other chest pain- Primary Atrial fibrillation with RVR ([facility]) Atrial fibrillation FUO (fever of unknown origin) Fever, unspecified Shaking chills Chills (without fever) Productive cough Cough Decreased breath sounds of both lungs Confusion Unspecified psychosis [facility]* Diagnosis Onset Date Resolution Status Anemia acute Diabetes mellitus type 2 in obese acute Elevated transaminase level acute History of hypertension acut e Paroxysmal atrial fibrillation acute Presence of stent in coronary artery November, acute Pulmonary hypertension acute Choledocholithiasis resolved Common bile duct dilatation resolved Complicated urinary tract infection resolved Encephalopathy acute resolve d Atrial fibrillation acute History of coronary artery stent placement May [id number] acute Essential hypertension chron ic Mixed hyperlipidemia chronic Choledocholithiasis resolved [facility] Work Phone: Evaluation note* Diagnosis Onychomycosis- Primary Dermatophytosis of nail Pain in toe of right foot Pain in limb Pain in toe of left foot Pain in limb Peripheral arterial disease (HCC) Peripheral vascular disease, unspecified Other diabetic neurological complication associated with type 2 diabetes mellitus (HCC) Venous insufficiency Unspecified venous (peripheral) insufficiency [facility]* Diagnosis Onset Date Resolution Status Choledocholithiasis resolved [facility] Work Phone: Evaluation note* Diagnosis Venous insufficiency- Primary Unspecified venous (peripheral) insufficiency [facility]* Diagnosis Full incontinence of feces- Primary Continuous leakage of urine Continuous leakage Vulvar irritation Other specified noninflammatory disorder of vulva and perineum [facility] Diagnosis Fall in home, initial encounter Acute pain of both knees [facility] Diagnosis Cellulitis of left foot Cellulitis and abscess of foot, except toes [facility] Diagnosis Bronchitis Bronchitis, not specified as acute or chronic documented [facility]* Diagnosis Pre-operative clearance Preoperative examination, unspecified [facility] Diagnosis Itching Unspecified pruritic disorder documented [facility]* Diagnosis Onychomycosis- Primary Dermatophytosis of nail Pain in toe of right foot Pain in limb Pain in toe of left foot Pain in limb Venous insufficiency Unspecified venous (peripheral) insufficiency Peripheral arterial disease (HCC) Peripheral vascular disease, unspecified Other diabetic neurological complication associated with type 2 diabetes mellitus (HCC) [facility] Narrative No data available for this section [facility] Hospital Discharge instructions No data available for this section [facility] Hospital Discharge instructions Additional Instructions 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 Please return to the emergency room if the redness is getting worse you develop fever or any progression of your symptoms.[facility] Work Phone: Hospital Discharge instructions Additional Instructions Your work-up today did not show any signs of pneumonia. Take the prescribed cough syrup to help control your cough and continue the antibiotics that were prescribed secondary to your cellulitis. Your work-up today indicates that the antibiotics are helping your symptoms. Continue to wear your oxygen as previously directed and return to the ER should you have any further concerns or worsening [facility] Work [facility]: Hospital Discharge instructions Additional Instructions Follow-up with Dr. Bart Blas as scheduled. Take your nitroglycerin as needed for chest pain. Additionally keep control of your blood pressureWTriHealth [facility] Work Phone: Hospital Discharge instructionsAdditional Instructions The CAT scans of your head and neck look good. Your left hip x-ray looked good. Keep the abrasion on your left forehead clean. Place antibiotic ointment on it daily. Ice to your forehead and hip. Tylenol for pain. You are currently on the blood thinner Eliquis. Hold it for the next 24 hours. You can restart the medication on Friday. Return if severe headache, intractable vomiting or not acting right. Follow-up with your doctor as needed.[facility] Work Phone: Progress note No data available for this section [facility] Progress note Author Dr. Fernández [facility] December 20, 2022 3:46pm Note Date/Time December 20, 2022 3:4 6pm [facility] Medical Records Department [address] [place] [address] Progress Note - Hospitalist 12/20/22 1542 MR#: [id number] Acct: [id number] Name: TAMIA PANDA Rep #:[id number] : 1955 67 From: Yared Fernández DO PCP: Dr. Bhupendra Oliveira MD Status :ADM IN Location: [place] [id number] Reason for Visit Reason for Visit: Diagnoses Type 2 diabetes mellitus without complications (12/18/22) Obesity, unspecified (12/18/22) Displaced intertrochanteric fracture of left femur, initial encounter for closedfracture (12/18/22) Nondisplaced intertrochanteric fracture of left femur, initial encounter for closed fracture (12/18/22) Encounter for other preprocedural examination (12/18/22) Subjective Subjective Patient was seen and examined today, she told this examiner that she was going home today, orthopedic surgery came in today to talk with the patient about possibly going to an extended care facility but it appears that instead the patient will be going home with home health. Patient appears medically stable at this time. Objective Data Objective Data Vital Signs: Vital Signs Temp Pulse Resp BP Pulse Ox O2 Del Method O2 Flow Rate 98.3 F 72 18 122/92 H 97 Nasal Cannula 3 12/20/22 09:00 12/20/22 09:00 12/20/22 09:00 12/20/22 09:00 12/20/22 09:26 12/20/22 09:00 12/20/22 09:26 Oxygen Flow Rate (L/min) 3 Oxygen Delivery Method Nasal Cannula Weight: 91.626 kg Body Mass Index (BMI) 38.1 Intake & Output: Intake and Output for Last 24 Hours 12/18/22 12/19/22 12/20/22 23:59 23:59 23:59 Intake Total 1663.25 / 1663.25 1300 / 1300 400 / 400 Balance 1663.25 / 1663.25 1300 / 1300 400 / 400 Lab / Micro Data Result Diagrams: 12/20/22 07:55 12/20/22 07:55 Labs: Laboratory Results - last 24 hr 12/19/22 17:08: POC Glucose 386 H 12/19/22 20:16: POC Glucose 372 H 12/20/22 05:36: POC Glucose 442 H 12/20/22 07:55: WBC 9.4, RBC 3.78 L, Hgb 11.4 L, Hct 36.2 L, MCV 95.8, MCH 30.2,MCHC 31.5 L, RDW Std Deviation 52.8 H, RDW Coeff of Aubrey 15.3 H, Plt Count 177, MPV 10.4 12/20/22 07:55: Sodium 137, Potassium 4.7, Chloride 104, Carbon Dioxide 30.0, Anion Gap 3 L, BUN 34 H, Creatinine 1.59 H, Estim Creat Clear Calc 25.91, Est GFR (MDRD) Af Amer 42 L, Est GFR (MDRD) Non-Af 34 L, BUN/Creatinine Ratio 21.4 H, Glucose 447 H, Calcium 9.0 12/20/22 12:33: POC Glucose 302 H Micro: Microbiology 12/11/22 15:48 Swab (Method) Nasal Screen MRSA/MSSA - Final Physical Exam Narrative alert, oriented x3, no apparent distress and average body habitus General Appearance: cooperative, well kempt and well developed Orientation / Consciousness: awake, oriented to person, oriented to place and oriented to time HEENT normocephalic, head/scalp atraumatic and moist oral mucous membranes Eyes PERRL, EOMs intact bilaterally and conjunctivae normal Neck supple, no JVD, thyroid normal and no carotid bruits General: trachea midline Resp normal respiratory effort, no retractions, no use of accessory muscles and clearto auscultation bilaterally Auscultation: Negative for rales, rhonchi or wheezes Cardio regular rate, regular rhythm, S1 normal heart sound, S2 normal heart sound, no murmurs, no rub and no gallops GI normal to inspection, nondistended, normoactive bowel sounds, soft to palpation,non-tender and non-distended Neuro oriented x3, CN's II-XII intact bilaterally, no focal motor deficits and no sensory deficits noted Sensorium / Orientation: awake and alert Speech: speech normal Psych affect normal Assessment & Plan Assessment/Plan (1) Closed intertrochanteric fracture of left femur: QUALIFIERS: Encounter type: initial encounter Fracture alignment:nondisplaced Qualified Code(s): S72.145A - Nondisplaced intertrochanteric fracture of left femur, initial encounter for closed fracture (2) Diabetes mellitus type 2 in obese: PLAN: Plan 1. Type 2 diabetes-patient will remain on her outpatient insulin regimen #2 essential hypertension-patient will remain on her present medications #3 hyperlipidemia-patient is on atorvastatin #4 chronic depression-patient is on Cymbalta #5 hypothyroidism-patient is on levothyroxine #6 paroxysmal atrial fibrillation-patient is on Eliquis #7 status post revision of intertrochanteric hip fixation left hip-postop day #2, outpatient PT and OT will be arranged for the patient #8 chronic hypoxic respiratory failure-patient is on 3 L via nasal cannula as anoutpatient Total clinical time spent by myself addressing the patient's medical issues, reviewing all of her data, and collaborating with the patient's care team: 35 minutes Charges/Coding Visit Charges Inpatient E&M: 29664 Subs Hosp L2 12/20/22 1546 <Electronically signed by Yared Fernández DO> Cosigner Signature (if applicable): CC: ~ Signed [facility] Work Phone: Reason for referral (narrative)* Diagnostic Procedure Only (Routine) - Pending Review Specialty Diagnoses / Procedures Referred By Sarah t Referred To Contact [facility] Diagnoses Encounter for screening mammogram for breast cancer Procedures RABIA SCREENING SCREENING MAMMOGRAPHY BI 2-VIEW BREAST INC CAD Nanda Oliveira MD [address] [place] [address] [facility] [address] [facility] [place] [address] Referral ID Status Reason Start Date Expiration Date Visits Requested Visits Authorized [id number] Pending Review Auto-Generat ed Referral 02/06/2022 03/08/2023 1 1 [facility] for referral (narrative)* Outpatient Procedure (Routine) - Closed Specialty Diagnoses / Procedures [facility] Diagnoses Peripheral arterial disease (HCC) Procedures PVR ANK/RAMIREZ/TOE NIRU VAS LAB NON-INVAS PHYSIOLOGIC STD EXTREMITY ART 2 LEVEL Katja Coles DO [address] [place] [address] [facility] [address] [place] [address] Referral ID Status Reason Start Date Expiration Date V isits Requested Visits Authorized [id number] Closed Auto-Generate d Referral 06/04/2022 06/04/2023 1 1 [facility] for referral (narrative)* Outpatient Procedure (Routine) - Closed Specialty Diagnoses / Procedures [facility] Diagnoses AF (paroxysmal atrial fibrillation) (HCC) Pre-operative clearance Procedures ECG COMPLETE ECG ROUTINE ECG W/LEAST 12 LDS W/I&R Nanda Oliveira MD [address] [place] [address] [address] Referral ID Status Reason Start Date Expiration Date V isits Requested Visits Authorized [id number] Closed Auto-Generate d Referral 09/27/2022 09/27/2023 1 1 [facility] for referral (narrative)* Diagnostic Procedure Only (Routine) - Pending Review Specialty Diagnoses / Procedures [facility] To [facility] Diagnoses Encounter for screening mammogram for breast cancer Procedures RABIA SCREENING SCREENING MAMMOGRAPHY BI 2-VIEW BREAST INC CAD Nanda Oliveira MD [address] [place] [address] [facility] [address] [place] [address] Referral ID Status Reason Start Date Expiration Date Visits Requested Visits Authorized [id number] Pending Review Auto-Generat ed Referral 01/08/2023 02/07/2024 1 1 [facility] for referral (narrative)* Outpatient Procedure (Routine) - Pending Review Specialty Diagnoses / Procedures Referred By Michaelac t Ref[facility] Diagnoses Other chest pain Procedures ECG COMPLETE ECG ROUTINE ECG W/LEAST 12 LDS W/I&R Nanda Oliveira MD [address] [place] [address] [facility] [place] [address] [place] [address] Referral ID Status Reason Start Date Expiration Date Visits Requested Visits Authorized [id number] Pending Review Auto-Generat ed Referral 3 08/12/2024 1 1 [facility] for referral (narrative)* Diagnostic Procedure Only (Urgent) - Closed Specialty Diagnoses / Procedures Referred By Sarah t Referred To Contact XR IMAGING Diagnoses Fall in home, initial encounter Acute pain of both knees Procedures XR KNEE GENERAL 4V AP BOTH/PA BOTH/LAT/MERC BILATERAL RADIOLOGIC EXAM KNEE COMPLETE 4/MORE VIEWS Nanda Oliveira MD [address] [place] [address] [place] [address] Referral ID Status Reason Start Date Expiration Date V isits Requested Visits Authorized [id number] Closed Auto-Generate d Referral 02/28/2023 03/29/2024 1 1 [facility] for referral (narrative)* Diagnostic Procedure Only (Routine) - Closed Specialty Diagnoses / Procedures Referred By Sarah t Referred To Contact XR IMAGING Diagnoses Cellulitis of left foot Procedures XR FOOT GENERAL 3V AP/LAT/OBL LEFT RADEX FOOT COMPLETE MINIMUM 3 VIEWS Nanda Oliveira MD [address] [place] [address] [place] [address] Referral ID Status Reason Start Date Expiration Date V isits Requested Visits Authorized [id number] Closed Auto-Generate d Referral 01/09/2023 02/08/2024 1 1 [facility] for referral (narrative)No reason for referral [facility] Diagnostic Procedure Only (Urgent) - Closed Specialty Diagnoses / Procedures Referred By Sarah t Referred To Contact XR IMAGING Diagnoses Fall in home, initial encounter Acute pain of both knees Procedures XR KNEE GENERAL 4V AP BOTH/PA BOTH/LAT/MERC BILATERAL RADIOLOGIC EXAM KNEE COMPLETE 4/MORE VIEWS Nanda Oliveira MD [address] [place] [address] [place] [address] Referral ID Status Reason Start Date Expiration Date V isits Requested Visits Authorized [id number] Closed Auto-Generate d Referral 02/28/2023 03/29/2024 1 1 [facility] for visit Narrative* Diagnostic Procedure Only (Routine) - Closed Specialty Diagnoses / Procedures Referred By Sarah jerome Referred To Contact XR IMAGING Diagnoses Cellulitis of left foot Procedures XR FOOT GENERAL 3V AP/LAT/OBL LEFT RADEX FOOT COMPLETE MINIMUM 3 VIEWS Nanda Oliveira MD [address] [place] [address] [place] [address] Referral ID Status Reason Start Date Expiration Date V isits Requested Visits Authorized [id number] Closed Auto-Generate d Referral 01/09/2023 02/08/2024 1 1 [facility] Summary Purpose Family History No Family History Records Found Relationship Condition Age at Onset Recorded Date/T raghavendra mother Coronary artery disease Unknown father Coronary artery disease Unknown brother Coronary artery disease Unknown Asthma Unknown sister Hypertension Unknown sister Diabetes mellitus Unknown sister Cardiac disease Unknown Advance Directives No Advanced Directives Records Found Advance Directive Response Recorded Date/ Time Advance Directives No September 28, 2019 10:35am Living Will No December 23, 2021 11:54pm Power of Commercial Loan Administrator No December 23 11:54pm Documents on File Type Date Recorded Patient [employer] Expl anation Advance Directive(s) 09/06/2020 3:13 PM Advance Directive(s) 01/23/2018 12:52 PM Advance Directive(s) 01/23/2018 4:04 PM Advance Directive(s) 01/23/2018 4:06 PM Advance Directive(s) 12/15/2017 4:32 PM Advance Directive(s) 08/01/2016 8:06 AM Documents on File Type Date Recorded Patient [employer] Expl anation Advance Directive(s) 09/06/2020 3:13 PM Advance Directive(s) 01/23/2018 12:52 PM Advance Directive(s) 01/23/2018 4:04 PM Advance Directive(s) 01/23/2018 4:06 PM Advance Directive(s) 12/15/2017 4:32 PM Advance Directive(s) 08/01/2016 8:06 AM Advance Directive Response Recorded Date/ Time Advance Directives No September 28, 2019 10:35am Living Will No February 23, 2022 8 :24am Power of Commercial Loan Administrator No February 23, 2022 8:24am Documents on File Type Date Recorded Patient [employer] Expl anation Advance Directive(s) 01/23/2018 4:06 PM Documents on File Type Date Recorded Patient [employer] Expl anation Advance Directive(s) 01/23/2018 4:06 PM Advance Directive Response Recorded Date/ Time Advance Directives No September 28, 2019 9:35am Living Will No August 03, 2 022 5:27pm Power of Commercial Loan Administrator No August 03, 2022 5:27pm Advance Directive Response Recorded Date/ Time Advance Directives No September 28, 2019 9:35am Living Will No August 03, 2 022 9:18pm Power of Commercial Loan Administrator No August 03, 2022 9:18pm Advance Directive Response Recorded Date/ Time Advance Directives No September 28, 2019 10:35am Living Will No December 18, 2022 10:25pm Power of Commercial Loan Administrator No December 18 10:25pm Advance Directive Response Recorded Date/ Time Advance Directives No September 28, 2019 10:35am Living Will No January 03, 2023 6:06pm Power of Commercial Loan Administrator No January 03 6:06pm Advance Directive Response Recorded Date/ Time Advance Directives No September 28, 2019 10:35am Living Will No January 14, 2023 12:57am Power of Commercial Loan Administrator No January 14 12:57am Advance Directive Response Recorded Date/ Time Advance Directives No September 28, 2019 10:35am Living Will No 2023 3:18pm Power of Commercial Loan Administrator No January 16 3:18pm Advance Directive Response Recorded Date/ Time Advance Directives No September 28, 2019 10:35am Living Will No April 23, 2023 6:28pm Power of Commercial Loan Administrator No April 23 6:28pm Advance Directive Response Recorded Date/ Time Advance Directives No September 28, 2019 10:35am Living Will No May 15 9:39pm Power of Commercial Loan Administrator No May 15, 2 023 9:39pm Advance Directive Response Recorded Date/ Time Advance Directives No September 28, 2019 10:35am Living Will No June 03, 2023 3:09pm Power of Commercial Loan Administrator No May 3:09pm Advance Directive Response Recorded Date/ Time Advance Directives No September 28, 2019 9:35am Living Will No August 13, 2 023 4:00pm Power of Commercial Loan Administrator No August 13, 2023 4:00pm Advance Directive Response Recorded Date/ Time Advance Directives No September 28, 2019 9:35am Living Will No August 13, 2 023 10:30pm Power of Commercial Loan Administrator No August 13, 2023 10:30pm Advance Directive Response Recorded Date/ Time Advance Directives No September 28, 2019 9:35am Living Will No November 25, 2023 9:23am Power of Commercial Loan Administrator No November 24 9:23am Advance Directive Response Recorded Date/ Time Advance Directives No September 28, 2019 10:35am Living Will No January 19, 2024 10:27am Power of Commercial Loan Administrator No January 18 10:27am Advance Directive Response Recorded Date/ Time Advance Directives No September 28, 2019 10:35am Living Will No June 10, 2023 2:16pm Power of Commercial Loan Administrator No May 2:16pm Advance Directive Response Recorded Date/ Time Living Will No August 13, 2 023 11:30pm Power of Commercial Loan Administrator No August 13, 2023 11:30pm Living Will No December 04, 2024 6:29pm Power of Commercial Loan Administrator No December 04 6:29pm Advance Directives No September 28, 2019 10:35am Advance Directive Response Recorded Date/ Time Living Will No December 04, 2024 6:29pm Do you have a Healthcare Power of Commercial Loan Administrator? No December 04, 2024 6:29pm Advance Directives No September 28, 2019 10:35am Advance Directive Response Recorded Date/ Time Advance Directives No September 28, 2019 10:35am Advance Directive Response Recorded Date/ Time Do you have a Healthcare Power of Commercial Loan Administrator? No June 19, 2025 1:40pm Advance Directives No September 28, 2019 10:35am Chief Complaint and Reason for Visit Chief Complaint Admit Date 2 M FU January 03, 2025 2:1 4pm EARLY SATIETY March 23, 2025 10:41 am Reason for Visit Admit Date Bloating January 03, 2025 2:1 4pm Early satiety January 03, 2025 2:1 4pm Chronic idiopathic constipation January 032024 2:14pm Chief Complaint fall Chief Complaint fall nosebleed Chief Complaint nosebleed 9 M FU E-ORDER Reason for Visit Pulmonary hypertensi on Atherosclerotic heart disease of [place] coronary artery without angina pectoris Essential hypertension Mixed hyperlipidemia Paroxysmal A-fib Chief Complaint 9 M FU E-ORDER LEFT HIP FRACTURE LEFT HIP FRACTURE Reason for Visit Pulmonary hypertensi on Atherosclerotic heart disease of [place] coronary artery without angina pectoris Essential hypertension Mixed hyperlipidemia Paroxysmal A-fib Anxiety Chest pain Closed intertrochanteric fracture of left femur Coagulopathy Contusion of multiple sites Fall at home Muscle strain Chief Complaint 9 M FU E-ORDER HIP FRACTURE LEFT HIP FRACTURE HIP FRACTURE HIP FRACTURE HIP FRACTURE HIP FRACTURE HIP FRACTURE Reason for Visit Pulmonary hypertensi on Atherosclerotic heart disease of [place] coronary artery without angina pectoris Essential hypertension Mixed hyperlipidemia Paroxysmal A-fib Anxiety Chest pain Closed intertrochanteric fracture of left femur Coagulopathy Contusion of multiple sites Elevated serum creatinine Fall at home Muscle strain Atherosclerotic heart disease of [place] coronary artery without angina pectoris Chronic respiratory insufficiency COPD (chronic obstructive pulmonary disease) Diabetes mellitus type 2 in obese PARESH (obstructive sleep apnea) Paroxysmal A-fib Presence of stent in coronary artery Chief Complaint 9 M FU E-ORDER HIP FRACTURE LEFT HIP FRACTURE HIP FRACTURE HIP FRACTURE HIP FRACTURE HIP FRACTURE HIP FRACTURE PAIN IN LEFT LOWER LEG Reason for Visit Pulmonary hypertensi on Essential hypertension Mixed hyperlipidemia Chest pain Coagulopathy Contusion of multiple sites Elevated serum creatinine Muscle strain Chief Complaint HIP FRACTURE LEFT HIP FRACTURE PRE OP HIP FRACTURE HIP FRACTURE HIP FRACTURE HIP FRACTURE HIP FRACTURE PAIN IN LEFT LOWER LEG 3-4 MO F/U CHEST PAIN CHEST PAIN Reason for Visit Atherosclerotic hear t disease of [place] coronary artery without angina pectoris Diabetes mellitus type 2 in obese Presence of stent in coronary artery Chest pain Coagulopathy Contusion of multiple sites Elevated serum creatinine Muscle strain Atherosclerotic heart disease of [place] coronary artery without angina pectoris Chest pain Pulmonary hypertension Essential hypertension Mixed hyperlipidemia Chief Complaint PAIN IN LEFT LOWER L EG 3-4 MO F/U CHEST PAIN CHEST PAIN [place] Teaching per [facility] [place] SURG CLEARANCE ROBOTIC CONV LT HIP TO PARTIAL VS TOTAL HIP ARTHRO ROBOTIC CONV LT HIP TO PARTIAL VS TOTAL HIP ARTHRO ROBOTIC CONV LT HIP TO PARTIAL VS TOTAL HIP ARTHRO Reason for Visit Atherosclerotic hear t disease of [place] coronary artery without angina pectoris Chest pain Pulmonary hypertension Essential hypertension Mixed hyperlipidemia Paroxysmal A-fib Atherosclerotic heart disease of [place] coronary artery without angina pectoris Chest pain Pre-op evaluation Pulmonary hypertension Essential hypertension Mixed hyperlipidemia Paroxysmal A-fib Closed intertrochanteric fracture of left femur Diabetes mellitus type 2 in obese Chief Complaint PAIN IN LEFT LOWER L EG 3-4 MO F/U CHEST PAIN CHEST PAIN [place] Teaching per [facility] [place] SURG CLEARANCE ROBOTIC CONV LT HIP TO PARTIAL VS TOTAL HIP ARTHRO ROBOTIC CONV LT HIP TO PARTIAL VS TOTAL HIP ARTHRO ROBOTIC CONV LT HIP TO PARTIAL VS TOTAL HIP ARTHRO WOUND Reason for Visit Atherosclerotic hear t disease of [place] coronary artery without angina pectoris Chest pain Pulmonary hypertension Essential hypertension Mixed hyperlipidemia Paroxysmal A-fib Atherosclerotic heart disease of [place] coronary artery without angina pectoris Chest pain Pre-op evaluation Pulmonary hypertension Essential hypertension Mixed hyperlipidemia Paroxysmal A-fib Closed intertrochanteric fracture of left femur Diabetes mellitus type 2 in obese Chief Complaint PAIN IN LEFT LOWER L EG 3-4 MO F/U CHEST PAIN CHEST PAIN [place] Teaching per [facility] [place] SURG CLEARANCE ROBOTIC CONV LT HIP TO PARTIAL VS TOTAL HIP ARTHRO ROBOTIC CONV LT HIP TO PARTIAL VS TOTAL HIP ARTHRO ROBOTIC CONV LT HIP TO PARTIAL VS TOTAL HIP ARTHRO WOUND General Illness Reason for Visit Atherosclerotic hear t disease of [place] coronary artery without angina pectoris Chest pain Pulmonary hypertension Essential hypertension Mixed hyperlipidemia Paroxysmal A-fib Atherosclerotic heart disease of [place] coronary artery without angina pectoris Chest pain Pre-op evaluation Pulmonary hypertension Essential hypertension Mixed hyperlipidemia Paroxysmal A-fib Closed intertrochanteric fracture of left femur Diabetes mellitus type 2 in obese Chief Complaint PAIN IN LEFT LOWER L EG 3-4 MO F/U CHEST PAIN CHEST PAIN [place] Teaching per [facility] [place] SURG CLEARANCE ROBOTIC CONV LT HIP TO PARTIAL VS TOTAL HIP ARTHRO ROBOTIC CONV LT HIP TO PARTIAL VS TOTAL HIP ARTHRO ROBOTIC CONV LT HIP TO PARTIAL VS TOTAL HIP ARTHRO WOUND General Illness SOB Reason for Visit Atherosclerotic hear t disease of [place] coronary artery without angina pectoris Chest pain Pulmonary hypertension Essential hypertension Mixed hyperlipidemia Paroxysmal A-fib Atherosclerotic heart disease of [place] coronary artery without angina pectoris Chest pain Pre-op evaluation Pulmonary hypertension Essential hypertension Mixed hyperlipidemia Paroxysmal A-fib Closed intertrochanteric fracture of left femur Diabetes mellitus type 2 in obese Chief Complaint ROBOTIC CONV LT HIP TO PARTIAL VS TOTAL HIP ARTHRO ROBOTIC CONV LT HIP TO PARTIAL VS TOTAL HIP ARTHRO ROBOTIC CONV LT HIP TO PARTIAL VS TOTAL HIP ARTHRO WOUND General Illness SOB FRACTURE OF FEMUR RX HERE Reason for Visit Closed intertrochant james fracture of left femur Diabetes mellitus type 2 in obese Chief Complaint General Illness SOB FRACTURE OF FEMUR RX HERE CHEST PRESSURE LEFT HIP FX Chief Complaint SOB FRACTURE OF FEMUR RX HERE CHEST PRESSURE LEFT HIP FX FAITH, congestion Chief Complaint FRACTURE OF FEMUR RX HERE CHEST PRESSURE LEFT HIP FX FAITH, congestion CHEST PAIN, ATRIAL FIBRILLATION CHEST PAIN, ATRIAL FIBRILLATION CHEST PAIN, ATRIAL FIBRILLATION Amb Documentation CHEST PAIN, ATRIAL FIBRILLATION CHEST PAIN, ATRIAL FIBRILLATION CHEST PAIN, ATRIAL FIBRILLATION Reason for Visit Atrial fibrillation Chest pain History of CAD (coronary artery disease) History of hypertension Presence of stent in coronary artery Essential hypertension Chief Complaint CHEST PRESSURE LEFT HIP FX FAITH, congestion CHEST PAIN, ATRIAL FIBRILLATION CHEST PAIN, ATRIAL FIBRILLATION CHEST PAIN, ATRIAL FIBRILLATION Amb Documentation CHEST PAIN, ATRIAL FIBRILLATION CHEST PAIN, ATRIAL FIBRILLATION CHEST PAIN, ATRIAL FIBRILLATION chest pain S/P [facility] 06/05 SUSPECTED COMMON BILE DUCT STONE, UTI & SEVERE Reason for Visit Atrial fibrillation History of CAD (coronary artery disease) History of hypertension Presence of stent in coronary artery Essential hypertension Chest pain Atrial fibrillation History of coronary artery stent placement Essential hypertension Mixed hyperlipidemia Anemia Common bile duct dilatation Complicated urinary tract infection Diabetes mellitus type 2 in obese Elevated transaminase level Encephalopathy acute History of hypertension Paroxysmal atrial fibrillation Presence of stent in coronary artery Pulmonary hypertension Chief Complaint S/P [facility] 06/05 SUSPECTED COMMON BILE DUCT STONE, UTI SUSPECTED COMMON BILE DUCT STONE, UTI & SEVERE SUSPECTED COMMON BILE DUCT STONE, UTI & SEVERE SUSPECTED COMMON BILE DUCT STONE, UTI & SEVERE SUSPECTED COMMON BILE DUCT STONE, UTI & SEVERE CP SUSPECTED COMMON BILE DUCT STONE, UTI & SEVERE SUSPECTED COMMON BILE DUCT STONE, UTI & SEVERE SUSPECTED COMMON BILE DUCT STONE, UTI & SEVERE SUSPECTED COMMON BILE DUCT STONE, UTI & SEVERE SUSPECTED COMMON BILE DUCT STONE, UTI & SEVERE SUSPECTED COMMON BILE DUCT STONE, UTI & SEVERE SUSPECTED COMMON BILE DUCT STONE, UTI & SEVERE SUSPECTED COMMON BILE DUCT STONE, UTI 2 M FU Reason for Visit Atrial fibrillation History of coronary artery stent placement Essential hypertension Mixed hyperlipidemia Anemia Diabetes mellitus type 2 in obese Elevated transaminase level History of hypertension Paroxysmal atrial fibrillation Presence of stent in coronary artery Pulmonary hypertension Choledocholithiasis Common bile duct dilatation Complicated urinary tract infection Encephalopathy acute Atrial fibrillation History of coronary artery stent placement Essential hypertension Mixed hyperlipidemia Chief Complaint SUSPECTED COMMON NIRU E DUCT STONE, UTI SUSPECTED COMMON BILE DUCT STONE, UTI & SEVERE SUSPECTED COMMON BILE DUCT STONE, UTI & SEVERE SUSPECTED COMMON BILE DUCT STONE, UTI & SEVERE SUSPECTED COMMON BILE DUCT STONE, UTI & SEVERE CP SUSPECTED COMMON BILE DUCT STONE, UTI & SEVERE SUSPECTED COMMON BILE DUCT STONE, UTI & SEVERE SUSPECTED COMMON BILE DUCT STONE, UTI & SEVERE SUSPECTED COMMON BILE DUCT STONE, UTI & SEVERE SUSPECTED COMMON BILE DUCT STONE, UTI & SEVERE SUSPECTED COMMON BILE DUCT STONE, UTI & SEVERE SUSPECTED COMMON BILE DUCT STONE, UTI & SEVERE SUSPECTED COMMON BILE DUCT STONE, UTI 2 M FU H FU SCREENING SPECIFIED SOFT TISSUE Reason for Visit Anemia Diabetes mellitus type 2 in obese Elevated transaminase level History of hypertension Paroxysmal atrial fibrillation Presence of stent in coronary artery Pulmonary hypertension Choledocholithiasis Common bile duct dilatation Complicated urinary tract infection Encephalopathy acute Atrial fibrillation History of coronary artery stent placement Essential hypertension Mixed hyperlipidemia Choledocholithiasis Chief Complaint SUSPECTED COMMON NIRU E DUCT STONE, UTI SUSPECTED COMMON BILE DUCT STONE, UTI & SEVERE SUSPECTED COMMON BILE DUCT STONE, UTI & SEVERE SUSPECTED COMMON BILE DUCT STONE, UTI & SEVERE SUSPECTED COMMON BILE DUCT STONE, UTI & SEVERE CP SUSPECTED COMMON BILE DUCT STONE, UTI & SEVERE SUSPECTED COMMON BILE DUCT STONE, UTI & SEVERE SUSPECTED COMMON BILE DUCT STONE, UTI & SEVERE SUSPECTED COMMON BILE DUCT STONE, UTI & SEVERE SUSPECTED COMMON BILE DUCT STONE, UTI & SEVERE SUSPECTED COMMON BILE DUCT STONE, UTI & SEVERE SUSPECTED COMMON BILE DUCT STONE, UTI & SEVERE SUSPECTED COMMON BILE DUCT STONE, UTI 2 M FU H FU SCREENING SPECIFIED SOFT TISSUE LUMBAR SPINE Reason for Visit Anemia Diabetes mellitus type 2 in obese Elevated transaminase level History of hypertension Paroxysmal atrial fibrillation Presence of stent in coronary artery Pulmonary hypertension Choledocholithiasis Common bile duct dilatation Complicated urinary tract infection Encephalopathy acute Atrial fibrillation History of coronary artery stent placement Essential hypertension Mixed hyperlipidemia Choledocholithiasis Chief Complaint H FU SCREENING SPECIFIED SOFT TISSUE LUMBAR SPINE Reason for Visit Choledocholithiasis Chief Complaint CHEST PRESSURE LEFT HIP FX FAITH, congestion CHEST PAIN, ATRIAL FIBRILLATION CHEST PAIN, ATRIAL FIBRILLATION CHEST PAIN, ATRIAL FIBRILLATION Amb Documentation CHEST PAIN, ATRIAL FIBRILLATION CHEST PAIN, ATRIAL FIBRILLATION CHEST PAIN, ATRIAL FIBRILLATION chest pain Reason for Visit Atrial fibrillation Chest pain History of CAD (coronary artery disease) History of hypertension Presence of stent in coronary artery Essential hypertension Chief Complaint CHEST PRESSURE LEFT HIP FX FAITH, congestion CHEST PAIN, ATRIAL FIBRILLATION CHEST PAIN, ATRIAL FIBRILLATION CHEST PAIN, ATRIAL FIBRILLATION Amb Documentation CHEST PAIN, ATRIAL FIBRILLATION CHEST PAIN, ATRIAL FIBRILLATION CHEST PAIN, ATRIAL FIBRILLATION chest pain S/P WC 06/05 SUSPECTED COMMON BILE DUCT STONE, UTI & SEVERE SUSPECTED COMMON BILE DUCT STONE, UTI & SEVERE SUSPECTED COMMON BILE DUCT STONE, UTI & SEVERE SUSPECTED COMMON BILE DUCT STONE, UTI & SEVERE SUSPECTED COMMON BILE DUCT STONE, UTI & SEVERE SUSPECTED COMMON BILE DUCT STONE, UTI & SEVERE SUSPECTED COMMON BILE DUCT STONE, UTI & SEVERE SUSPECTED COMMON BILE DUCT STONE, UTI & SEVERE SUSPECTED COMMON BILE DUCT STONE, UTI & SEVERE SUSPECTED COMMON BILE DUCT STONE, UTI & SEVERE SUSPECTED COMMON BILE DUCT STONE, UTI & SEVERE SUSPECTED COMMON BILE DUCT STONE, UTI & SEVERE Reason for Visit Atrial fibrillation History of CAD (coronary artery disease) History of hypertension Presence of stent in coronary artery Essential hypertension Chest pain Atrial fibrillation History of coronary artery stent placement Essential hypertension Mixed hyperlipidemia Anemia Choledocholithiasis Common bile duct dilatation Complicated urinary tract infection Diabetes mellitus type 2 in obese Elevated transaminase level Encephalopathy acute History of hypertension Paroxysmal atrial fibrillation Presence of stent in coronary artery Pulmonary hypertension Chief Complaint Admit Date Diarrhea October 27, 2024 1 :15pm 1 Y FU November 04, 2024 2:12pm chest pain December 04, 2024 3:1 2pm Reason for Visit Admit Date Diarrhea October 27, 2024 1 :15pm Early satiety October 27, 2024 1 :15pm Pruritus October 27, 2024 1 :15pm GERD (gastroesophageal reflux disease) F ebruary 2024 1:15pm Atrial fibrillation November 04, 2024 2:12pm History of coronary artery stent placeme nt November 04, 2024 2:12pm Essential hypertension November 04 2:12pm Mixed hyperlipidemia November 04, 2024 2:12pm Chief Complaint Admit Date chest pain December 04, 2024 3:1 2pm 2 M FU January 03, 2025 2:1 4pm EARLY SATIETY March 23, 2025 10:41 am Chief Complaint Admit Date EARLY SATIETY March 23, 2025 10:41 am fall June 19, 2025 1:35pm Reason for Referral Specialty Diagnoses / Procedures Referred By Sarah t Referred To Contact MR IMAGING Diagnoses Fall in home, initial encounter Acute pain of left shoulder Procedures MRI SHOULDER WO IVCON LT MRI ANY JT UPPER EXTREMITY W/O CONTRAST MATRL Nanda Oliveira MD [address] [place] [address] Mr Imaging Referral ID Status Reason Start Date Expiration Date Visits Requested Visits Authorized [id number] Authorized Auto-Generat ed Referral 12/27/2021 01/26/2023 1 1 Specialty Diagnoses / Procedures Referred By Sarah t Referred To Contact Vascular Surgery Diagnoses Dusky feet Procedures CONSULT TO VASCULAR SURGERY OFFICE/OUTPATIENT [facility] 60-74 MINUTES Nanda Oliveira MD [address] [place] [address] Referral ID Status Reason Start Date Expiration Date Visits Requested Visits Authorized [id number] Authorized PCP Requested Referral 03/01/2022 03/01/2023 1 1 Specialty Diagnoses / Procedures Referred By Sarah t Referred To Contact [facility] Diagnoses Type 2 diabetes mellitus with diabetic neuropathy, with long-term current use of insulin (HCC) Dusky feet Procedures PVR ANK PRESS NIRU VAS LAB NON-INVAS PHYSIOLOGIC STD EXTREMITY ART 2 LEVEL Nanda Oliveira MD [address] [place] [address] [facility] [address] [place] [address] Referral ID Status Reason Start Date Expiration Date Visits Requested Visits Authorized [id number] Pending Review Auto-Generat ed Referral 03/01/2022 03/01/2023 1 1 Referral ID Status Reason Start Date Expiration Date Visits Requested Visits Authorized [id number] Authorized PCP Requested Referral 03/29/2022 03/29/2023 1 1 Specialty Diagnoses / Procedures Referred By Michaelac t Referred To Contact CT IMAGING Diagnoses Acute left flank pain Procedures CT FLANK WO IVCON CT ABD & PELVIS W/O CONTRAST Nanda Oliveira MD [address] [place] [address] Ct Imaging Referral ID Status Reason Start Date Expiration Date Visits Requested Visits Authorized [id number] Pending Review Auto-Generat ed Referral 05/01/2022 05/31/2023 1 1 Specialty Diagnoses / Procedures Referred By Contac t Referred To Contact Gastroenterology Diagnoses Incontinence of feces, unspecified fecal incontinence type Procedures CONSULT TO GASTROENTEROLOGY OFFICE/OUTPATIENT [facility] 60-74 MINUTES Nanda Oliveira MD [address] [place] [address] Referral ID Status Reason Start Date Expiration Date Visits Requested Visits Authorized [id number] Authorized PCP Requested Referral 2 07/11/2023 1 1 Health Concerns Infection Onset Date Last Indicated Resolved Time COVID-19 Confirmed 05/20/2023 05/20/2023 3 8:51 PM EDT Medications Administered Section Inactive Administered Medications - up to 3 most recent administrations Medication Order MAR Action Action Date Dose Rate Site nitroglycerin sublingual 0.4 mg tab(s) (NITROQUICK) 0.4 mg, SUBLINGUAL, ONCE, 1 dose, On Fri08/13/23 at 1500, Usual dose for angina is 1 tablet every 5 minutes for maximum of 3 doses [address] tablet under tongue and allow to dissolve; do not chew or break. Given 08/13/2023 2:28 PM EST 0.4 mg nitroglycerin sublingual 0.4 mg tab(s) (NITROQUICK) 0.4 mg, SUBLINGUAL, ONCE, 1 dose, On Fri08/13/23 at 1500, Usual dose for angina is 1 tablet every 5 minutes for maximum of 3 doses [address] tablet under tongue and allow to dissolve; do not chew or break. Given 08/13/2023 2:22 PM EST 0.4 mg Additional Source Comments INFORMATION SOURCE (unrecogn ized section and content) DATE CREATED AUTHOR 03/11/2018 [facility] DATE CREATED AUTHOR AUTHOR'S ORGANIZ ATION 03/12/2018 [facility] DATE CREATED AUTHOR AUTHOR'S ORGANIZ ATION 12/15/2020 [facility] DATE CREATED AUTHOR AUTHOR'S ORGANIZ ATION 02/24/2022 [facility] zoraida Marin DATE CREATED AUTHOR AUTHOR'S ORGANIZ ATION 11/23/2022 [facility] ([place]) DATE CREATED AUTHOR AUTHOR'S ORGANIZ ATION 03/07/2025 [facility] DATE CREATED AUTHOR AUTHOR'S ORGANIZ ATION 05/19/2025 [facility] DATE CREATED AUTHOR AUTHOR'S ORGANIZ ATION 05/21/[address] [facility] DATE CREATED AUTHOR AUTHOR'S ORGANIZ ATION 05/30/2025 [facility] DATE CREATED AUTHOR AUTHOR'S ORGANIZ ATION 07/30/2025 [facility] Goals (unrecognized section and content) Goals may be documented in a n alternate sectionGoals may be documented in an alternate sectionGoals may be documented in an alternate sectionGoals may be documented in an alternate section No data available for this sectionGoals may be documented in an alternate sectionGoals may be documented in an alternate sectionGoals may be documented in an alternate sectionGoals may be documented in an alternate sectionGoals may be documented in an alternate sectionGoals may be documented in an alternate sectionGoals may be documented in an alternate section Source Comments (unrecognize d section and content) In the event this informatio n is protected by the Federal Confidentiality of Alcohol and Drug Abuse Patient Records regulations: The Federal rules restrict any use of the information to criminally investigate or prosecute any alcohol or drug abuse patient.[facility] the event this information is protected by the Federal Confidentiality of Alcohol and Drug Abuse Patient Records regulations: The Federal rules restrict any use of the information to criminally investigate or prosecute any alcohol or drug abuse patient.[facility] the event this information is protected by the Federal Confidentiality of Alcohol and Drug Abuse Patient Records regulations: The Federal rules restrict any use of the information to criminally investigate or prosecute any alcohol or drug abuse patient.[facility] the event this information is protected by the Federal Confidentiality of Alcohol and Drug Abuse Patient Records regulations: The Federal rules restrict any use of the information to criminally investigate or prosecute any alcohol or drug abuse patient.[facility] the event this information is protected by the Federal Confidentiality of Alcohol and Drug Abuse Patient Records regulations: The Federal rules restrict any use of the information to criminally investigate or prosecute any alcohol or drug abuse patient.[facility] the event this information is protected by the Federal Confidentiality of Alcohol and Drug Abuse Patient Records regulations: The Federal rules restrict any use of the information to criminally investigate or prosecute any alcohol or drug abuse patient.[facility] the event this information is protected by the Federal Confidentiality of Alcohol and Drug Abuse Patient Records regulations: The Federal rules restrict any use of the information to criminally investigate or prosecute any alcohol or drug abuse patient.[facility] the event this information is protected by the Federal Confidentiality of Alcohol and Drug Abuse Patient Records regulations: The Federal rules restrict any use of the information to criminally investigate or prosecute any alcohol or drug abuse patient.[facility] the event this information is protected by the Federal Confidentiality of Alcohol and Drug Abuse Patient Records regulations: The Federal rules restrict any use of the information to criminally investigate or prosecute any alcohol or drug abuse patient.[facility]In the event this information is protected by the Federal Confidentiality of Alcohol and Drug Abuse Patient Records regulations: The Federal rules restrict any use of the information to criminally investigate or prosecute any alcohol or drug abuse patient.[facility] the event this information is protected by the Federal Confidentiality of Alcohol and Drug Abuse Patient Records regulations: The Federal rules restrict any use of the information to criminally investigate or prosecute any alcohol or drug abuse patient.[facility] the event this information is protected by the Federal Confidentiality of Alcohol and Drug Abuse Patient Records regulations: The Federal rules restrict any use of the information to criminally investigate or prosecute any alcohol or drug abuse patient.[facility]In the event this information is protected by the Federal Confidentiality of Alcohol and Drug Abuse Patient Records regulations: The Federal rules restrict any use of the information to criminally investigate or prosecute any alcohol or drug abuse patient.[facility]In the event this information is protected by the Federal Confidentiality of Alcohol and Drug Abuse Patient Records regulations: The Federal rules restrict any use of the information to criminally investigate or prosecute any alcohol or drug abuse patient.[facility]In the event this information is protected by the Federal Confidentiality of Alcohol and Drug Abuse Patient Records regulations: The Federal rules restrict any use of the information to criminally investigate or prosecute any alcohol or drug abuse patient.[facility]In the event this information is protected by the Federal Confidentiality of Alcohol and Drug Abuse Patient Records regulations: The Federal rules restrict any use of the information to criminally investigate or prosecute any alcohol or drug abuse patient.[facility]In the event this information is protected by the Federal Confidentiality of Alcohol and Drug Abuse Patient Records regulations: The Federal rules restrict any use of the information to criminally investigate or prosecute any alcohol or drug abuse patient.[facility] HospitalIn the event this information is protected by the Federal Confidentiality of Alcohol and Drug Abuse Patient Records regulations: The Federal rules restrict any use of the information to criminally investigate or prosecute any alcohol or drug abuse patient.[facility] HospitalIn the event this information is protected by the Federal Confidentiality of Alcohol and Drug Abuse Patient Records regulations: The Federal rules restrict any use of the information to criminally investigate or prosecute any alcohol or drug abuse patient.[facility] HospitalIn the event this information is protected by the Federal Confidentiality of Alcohol and Drug Abuse Patient Records regulations: The Federal rules restrict any use of the information to criminally investigate or prosecute any alcohol or drug abuse patient.[facility] HospitalIn the event this information is protected by the Federal Confidentiality of Alcohol and Drug Abuse Patient Records regulations: The Federal rules restrict any use of the information to criminally investigate or prosecute any alcohol or drug abuse patient.[facility]In the event this information is protected by the Federal Confidentiality of Alcohol and Drug Abuse Patient Records regulations: The Federal rules restrict any use of the information to criminally investigate or prosecute any alcohol or drug abuse patient.[facility]In the event this information is protected by the Federal Confidentiality of Alcohol and Drug Abuse Patient Records regulations: The Federal rules restrict any use of the information to criminally investigate or prosecute any alcohol or drug abuse patient.[facility]In the event this information is protected by the Federal Confidentiality of Alcohol and Drug Abuse Patient Records regulations: The Federal rules restrict any use of the information to criminally investigate or prosecute any alcohol or drug abuse patient.[facility]In the event this information is protected by the Federal Confidentiality of Alcohol and Drug Abuse Patient Records regulations: The Federal rules restrict any use of the information to criminally investigate or prosecute any alcohol or drug abuse patient.[facility] HospitalIn the event this information is protected by the Federal Confidentiality of Alcohol and Drug Abuse Patient Records regulations: The Federal rules restrict any use of the information to criminally investigate or prosecute any alcohol or drug abuse patient.[facility]In the event this information is protected by the Federal Confidentiality of Alcohol and Drug Abuse Patient Records regulations: The Federal rules restrict any use of the information to criminally investigate or prosecute any alcohol or drug abuse patient.[facility]In the event this information is protected by the Federal Confidentiality of Alcohol and Drug Abuse Patient Records regulations: The Federal rules restrict any use of the information to criminally investigate or prosecute any alcohol or drug abuse patient.[facility] HospitalIn the event this information is protected by the Federal Confidentiality of Alcohol and Drug Abuse Patient Records regulations: The Federal rules restrict any use of the information to criminally investigate or prosecute any alcohol or drug abuse patient.[facility]In the event this information is protected by the Federal Confidentiality of Alcohol and Drug Abuse Patient Records regulations: The Federal rules restrict any use of the information to criminally investigate or prosecute any alcohol or drug abuse patient.[facility] HospitalIn the event this information is protected by the Federal Confidentiality of Alcohol and Drug Abuse Patient Records regulations: The Federal rules restrict any use of the information to criminally investigate or prosecute any alcohol or drug abuse patient.[facility]In the event this information is protected by the Federal Confidentiality of Alcohol and Drug Abuse Patient Records regulations: The Federal rules restrict any use of the information to criminally investigate or prosecute any alcohol or drug abuse patient.[facility]In the event this information is protected by the Federal Confidentiality of Alcohol and Drug Abuse Patient Records regulations: The Federal rules restrict any use of the information to criminally investigate or prosecute any alcohol or drug abuse patient.[facility]In the event this information is protected by the Federal Confidentiality of Alcohol and Drug Abuse Patient Records regulations: The Federal rules restrict any use of the information to criminally investigate or prosecute any alcohol or drug abuse patient.[facility]In the event this information is protected by the Federal Confidentiality of Alcohol and Drug Abuse Patient Records regulations: The Federal rules restrict any use of the information to criminally investigate or prosecute any alcohol or drug abuse patient.[facility]In the event this information is protected by the Federal Confidentiality of Alcohol and Drug Abuse Patient Records regulations: The Federal rules restrict any use of the information to criminally investigate or prosecute any alcohol or drug abuse patient.[facility]In the event this information is protected by the Federal Confidentiality of Alcohol and Drug Abuse Patient Records regulations: The Federal rules restrict any use of the information to criminally investigate or prosecute any alcohol or drug abuse patient.[facility]In the event this information is protected by the Federal Confidentiality of Alcohol and Drug Abuse Patient Records regulations: The Federal rules restrict any use of the information to criminally investigate or prosecute any alcohol or drug abuse patient.[facility]In the event this information is protected by the Federal Confidentiality of Alcohol and Drug Abuse Patient Records regulations: The Federal rules restrict any use of the information to criminally investigate or prosecute any alcohol or drug abuse patient.[facility] HospitalIn the event this information is protected by the Federal Confidentiality of Alcohol and Drug Abuse Patient Records regulations: The Federal rules restrict any use of the information to criminally investigate or prosecute any alcohol or drug abuse patient.[facility]In the event this information is protected by the Federal Confidentiality of Alcohol and Drug Abuse Patient Records regulations: The Federal rules restrict any use of the information to criminally investigate or prosecute any alcohol or drug abuse patient.[facility]In the event this information is protected by the Federal Confidentiality of Alcohol and Drug Abuse Patient Records regulations: The Federal rules restrict any use of the information to criminally investigate or prosecute any alcohol or drug abuse patient.[facility]In the event this information is protected by the Federal Confidentiality of Alcohol and Drug Abuse Patient Records regulations: The Federal rules restrict any use of the information to criminally investigate or prosecute any alcohol or drug abuse patient.[facility]In the event this information is protected by the Federal Confidentiality of Alcohol and Drug Abuse Patient Records regulations: The Federal rules restrict any use of the information to criminally investigate or prosecute any alcohol or drug abuse patient.[facility]In the event this information is protected by the Federal Confidentiality of Alcohol and Drug Abuse Patient Records regulations: The Federal rules restrict any use of the information to criminally investigate or prosecute any alcohol or drug abuse patient.[facility]In the event this information is protected by the Federal Confidentiality of Alcohol and Drug Abuse Patient Records regulations: The Federal rules restrict any use of the information to criminally investigate or prosecute any alcohol or drug abuse patient.[facility]In the event this information is protected by the Federal Confidentiality of Alcohol and Drug Abuse Patient Records regulations: The Federal rules restrict any use of the information to criminally investigate or prosecute any alcohol or drug abuse patient.[facility]In the event this information is protected by the Federal Confidentiality of Alcohol and Drug Abuse Patient Records regulations: The Federal rules restrict any use of the information to criminally investigate or prosecute any alcohol or drug abuse patient.[facility]In the event this information is protected by the Federal Confidentiality of Alcohol and Drug Abuse Patient Records regulations: The Federal rules restrict any use of the information to criminally investigate or prosecute any alcohol or drug abuse patient.[facility]In the event this information is protected by the Federal Confidentiality of Alcohol and Drug Abuse Patient Records regulations: The Federal rules restrict any use of the information to criminally investigate or prosecute any alcohol or drug abuse patient.[facility]In the event this information is protected by the Federal Confidentiality of Alcohol and Drug Abuse Patient Records regulations: The Federal rules restrict any use of the information to criminally investigate or prosecute any alcohol or drug abuse patient.[facility]In the event this information is protected by the Federal Confidentiality of Alcohol and Drug Abuse Patient Records regulations: The Federal rules restrict any use of the information to criminally investigate or prosecute any alcohol or drug abuse patient.[facility]In the event this information is protected by the Federal Confidentiality of Alcohol and Drug Abuse Patient Records regulations: The Federal rules restrict any use of the information to criminally investigate or prosecute any alcohol or drug abuse patient.[facility]In the event this information is protected by the Federal Confidentiality of Alcohol and Drug Abuse Patient Records regulations: The Federal rules restrict any use of the information to criminally investigate or prosecute any alcohol or drug abuse patient.[facility]In the event this information is protected by the Federal Confidentiality of Alcohol and Drug Abuse Patient Records regulations: The Federal rules restrict any use of the information to criminally investigate or prosecute any alcohol or drug abuse patient.[facility]In the event this information is protected by the Federal Confidentiality of Alcohol and Drug Abuse Patient Records regulations: The Federal rules restrict any use of the information to criminally investigate or prosecute any alcohol or drug abuse patient.[facility]In the event this information is protected by the Federal Confidentiality of Alcohol and Drug Abuse Patient Records regulations: The Federal rules restrict any use of the information to criminally investigate or prosecute any alcohol or drug abuse patient.[facility]In the event this information is protected by the Federal Confidentiality of Alcohol and Drug Abuse Patient Records regulations: The Federal rules restrict any use of the information to criminally investigate or prosecute any alcohol or drug abuse patient.[facility]In the event this information is protected by the Federal Confidentiality of Alcohol and Drug Abuse Patient Records regulations: The Federal rules restrict any use of the information to criminally investigate or prosecute any alcohol or drug abuse patient.[facility] [facility] [facility] HospitalIn the event this information is protected by the Federal Confidentiality of Alcohol and Drug Abuse Patient Records regulations: The Federal rules restrict any use of the information to criminally investigate or prosecute any alcohol or drug abuse patient.[facility] the event this information is protected by the Federal Confidentiality of Alcohol and Drug Abuse Patient Records regulations: The Federal rules restrict any use of the information to criminally investigate or prosecute any alcohol or drug abuse patient.[facility] HospitalIn the event this information is protected by the Federal Confidentiality of Alcohol and Drug Abuse Patient Records regulations: The Federal rules restrict any use of the information to criminally investigate or prosecute any alcohol or drug abuse patient.[facility] HospitalIn the event this information is protected by the Federal Confidentiality of Alcohol and Drug Abuse Patient Records regulations: The Federal rules restrict any use of the information to criminally investigate or prosecute any alcohol or drug abuse patient.[facility] HospitalIn the event this information is protected by the Federal Confidentiality of Alcohol and Drug Abuse Patient Records regulations: The Federal rules restrict any use of the information to criminally investigate or prosecute any alcohol or drug abuse patient.[facility] HospitalIn the event this information is protected by the Federal Confidentiality of Alcohol and Drug Abuse Patient Records regulations: The Federal rules restrict any use of the information to criminally investigate or prosecute any alcohol or drug abuse patient.[facility] HospitalIn the event this information is protected by the Federal Confidentiality of Alcohol and Drug Abuse Patient Records regulations: The Federal rules restrict any use of the information to criminally investigate or prosecute any alcohol or drug abuse patient.[facility] HospitalIn the event this information is protected by the Federal Confidentiality of Alcohol and Drug Abuse Patient Records regulations: The Federal rules restrict any use of the information to criminally investigate or prosecute any alcohol or drug abuse patient.[facility] HospitalIn the event this information is protected by the Federal Confidentiality of Alcohol and Drug Abuse Patient Records regulations: The Federal rules restrict any use of the information to criminally investigate or prosecute any alcohol or drug abuse patient.[facility] HospitalIn the event this information is protected by the Federal Confidentiality of Alcohol and Drug Abuse Patient Records regulations: The Federal rules restrict any use of the information to criminally investigate or prosecute any alcohol or drug abuse patient.[facility] HospitalIn the event this information is protected by the Federal Confidentiality of Alcohol and Drug Abuse Patient Records regulations: The Federal rules restrict any use of the information to criminally investigate or prosecute any alcohol or drug abuse patient.[facility] HospitalIn the event this information is protected by the Federal Confidentiality of Alcohol and Drug Abuse Patient Records regulations: The Federal rules restrict any use of the information to criminally investigate or prosecute any alcohol or drug abuse patient.[facility] HospitalIn the event this information is protected by the Federal Confidentiality of Alcohol and Drug Abuse Patient Records regulations: The Federal rules restrict any use of the information to criminally investigate or prosecute any alcohol or drug abuse patient.[facility] HospitalIn the event this information is protected by the Federal Confidentiality of Alcohol and Drug Abuse Patient Records regulations: The Federal rules restrict any use of the information to criminally investigate or prosecute any alcohol or drug abuse patient.[facility] HospitalIn the event this information is protected by the Federal Confidentiality of Alcohol and Drug Abuse Patient Records regulations: The Federal rules restrict any use of the information to criminally investigate or prosecute any alcohol or drug abuse patient.[facility] HospitalIn the event this information is protected by the Federal Confidentiality of Alcohol and Drug Abuse Patient Records regulations: The Federal rules restrict any use of the information to criminally investigate or prosecute any alcohol or drug abuse patient.[facility] HospitalIn the event this information is protected by the Federal Confidentiality of Alcohol and Drug Abuse Patient Records regulations: The Federal rules restrict any use of the information to criminally investigate or prosecute any alcohol or drug abuse patient.[facility] HospitalIn the event this information is protected by the Federal Confidentiality of Alcohol and Drug Abuse Patient Records regulations: The Federal rules restrict any use of the information to criminally investigate or prosecute any alcohol or drug abuse patient.[facility] HospitalIn the event this information is protected by the Federal Confidentiality of Alcohol and Drug Abuse Patient Records regulations: The Federal rules restrict any use of the information to criminally investigate or prosecute any alcohol or drug abuse patient.[facility] Reason for Visit (unrecogniz ed section and content) Reason Comments Patient Update Reason Comments Follow Up ER follow up- pain Reason Comments Release Of Medical Records Reason Onset Date Comments Refill Request 02/01/2022 Reason Comments SOB for months Reason Comments Follow Up 3 month Reason Comments Results Reason Onset Date Comments Refill Request 03/01/2022 Reason Comments Internal Referrals/resources Reason Comments Consult Reason Comments Follow Up 4 week- missed appt with [facility] Reason Onset Date Comments Refill Request 04/25/2022 Reason Comments 4 week follow up Arm Pain Fall- right arm pain Reason Onset Date Comments Refill Request 05/22/2022 Reason Comments Appointment Needs testing Reason Onset Date Comments Returning Patient's Call 06/11/2022 Reason Comments Appointment Reason Comments New Patient Specialty Diagnoses / Procedures Referred By Contac t Referred To Contact Vascular Surgery Diagnoses Dusky feet Procedures CONSULT TO VASCULAR SURGERY OFFICE/OUTPATIENT NEW HIGH MDM 60-74 MINUTES Nanda Oliveira MD [address] [place] [address] Referral ID Status Reason Start Date Expiration Date V isits Requested Visits Authorized [id number] Closed PCP Requested Referral 03/29/2022 03/29/2023 1 1 Reason Onset Date Comments Refill Request 06/21/2022 Reason Onset Date Comments Refill Request 07/01/2022 Reason Onset Date Comments Follow Up Immunizations 07/04/2022 Flu vaccination Reason Comments UTI Complaints of urgenc y and frequency Change In Bowel Habits Patient reports b owels movements w/o her knowing at times and will be incont of stool sometimes multiple x in a day Itching Reports itchiness al l over. Stated she gets full of anxiety even thinking about discussing it. Reason Onset Date Comments Refill Request 07/17/2022 Reason Onset Date Comments Refill Request 09/06/2022 Reason Comments Medical Clearance For surgery on left hip- patient reports pain as to be expected in left leg. She has pain medication she reports. Reason Onset Date Comments Refill Request 10/04/2022 Reason Comments Patient Question Reason Onset Date Comments Refill Request 11/04/2022 Reason Comments Patient Update Patient Question Reason Onset Date Comments Refill Request 12/27/2022 Reason Comments Pain (foot) L foot infection x2 days Reason Comments DME request Reason Comments Left foot possible infection Incontinent supplies Reason Onset Date Comments Refill Request 01/24/2023 Reason Comments Follow Up Blister Reason Comments Follow Up Reason Comments error Error-FOBT results Reason Onset Date Comments Refill Request 03/20/2023 Refill Request 03/24/2023 Reason Comments Established Patient Follow Up Diabetic Foot Check Reason Comments Vaginal Problem Reason Onset Date Comments Refill Request 04/23/2023 Reason Comments Chest Pain Reason Comments F/U 3 Month Reason Comments covid 19 concern Reason Onset Date Comments Refill Request 06/03/2023 Reason Onset Date Comments Refill Request 05/06/2023 Refill Request 06/03/2023 Reason Comments [facility] with stent placement Reason Comments Established Patient Follow Up Numbness Pain Reason Onset Date Comments Refill Request 07/04/2023 Reason Onset Date Comments Refill Request 07/25/2023 Reason Comments Follow Up Cough, runny nose, c ongestion Reason Comments Abdominal Pain Reason Comments Medication Question Reason Comments Established Patient Debridement of Nail Reason Comments Established Patient Follow Up Pain Diabetic Foot Care Swelling Reason Comments Faxed to [facility] Care Teams (unrecognized sec tion and content) Sales Office Coordinator Relationship Specialty Start Date End Date Nanda Oliveira MD [address], [place] [id number] PCP - General Family Practice 06/24/16 Daniel Ford [address] [place], [place] [address] Pain Management 11/14/17 Bart Blas [address] [facility] [address] [place], [place] [address] Physician Cardiology 01/14/19 (Hist), [facility] Medical Supplies Durable Medical Equipment Provider 07/05/19 Shaquille Finley [address], [place] [id number] Consulting Anesthesiology 01/20/20 Soheila Bhakta MD [address], [place] [id number] Consulting Dermatology 03/10/20 [facility] 06/26/16 Maureen Mccarty 07/12/16 [facility] 10/28/16 [facility] Physician Cardiology 11/14/17 [facility] 11/14/17 Yelena 03/03/19 Lou Gonzalez 01/20/19 Keara Ayers 02/20/17 Sales Office Coordinator Relationship Specialty Start Date End Date Nanda Oliveira MD [address], [place] [id number] PCP - General Family Practice 06/24/16 Daniel Ford [address] [place], [place] [phone] Pain Management 11/14/17 Bart Blas [address] [facility] [facility] [address] [place], [place] [phone] Physician Cardiology 01/14/19 (Hist), [facility] Durable Medical Equipment Provider 07/05/19 Shaquille Finley [address] [place] [address] Consulting Anesthesiology 01/20/20 Soheila Bhakta MD [address] [place] [address] Consulting Dermatology 03/10/20 [facility] 06/26/16 Maureen Mccarty 07/12/16 [facility] 10/28/16 [facility] Physician Cardiology 11/14/17 [facility] 11/14/17 [facility] 03/03/19 Lou Gonzalez 01/20/19 Keara Ayers 02/20/17 Sales Office Coordinator Relationship Specialty Start Date End Date Nanda Oliveira MD [address], [place] [phone] PCP - General Family Practice 06/24/16 Daniel Fordery [address] [place], [place] [id number] Pain Management 11/14/17 WanPhilip weinsteinril S [address] [place], [place] [phone] Physician Cardiology 01/14/19 (Hist), [employer] [facility] [employer] Durable Medical Equipment Provider 07/05/19 Shaquille Finley [address], [place] [phone] Consulting Anesthesiology 01/20/20 Soheila Bhakta MD [address], [place] [phone] Consulting Dermatology 03/10/20 [facility] 06/26/16 Maureen Mccraty 07/12/16 [facility] 10/28/16 [facility] Physician Cardiology 11/14/17 [facility] 11/14/17 Yelena 03/03/19 Lou Gonzalez 01/20/19 Keara Ayers 02/20/17 Sales Office Coordinator Relationship Specialty Start Date End Date Nanda Oliveira MD [address] [place] [address] PCP - General Family Practice 06/24/16 Daniel Ford [address] [place] [address] Pain Management 11/14/17 Wan, Bart S [address] [place], [place] [address] Physician Cardiology 01/14/19 (Hist), [facility] Medical Supplies Durable Medical Equipment Provider 07/05/19 Malia Shaquille Luevano [address], [place] [id number] Consulting Anesthesiology 01/20/20 Soheila Bhakta MD [address] [place] [address] Consulting Dermatology 03/10/20 [facility] 06/26/16 Maureen Mccarty 07/12/16 [facility] 10/28/16 [facility] Physician Cardiology 11/14/17 [facility] 11/14/17 Yelena 03/03/19 Lou Gonzalez 01/20/19 Keara Ayers 02/20/17 Sales Office Coordinator Relationship Specialty Start Date End Date Nanda Oliveira MD [address], [place] [phone] PCP - General Family Practice 06/24/16 Daniel Ford [address] [place] [address] Pain Management 11/14/17 Wan, [place] S [address] [place], [place] [address] Physician Cardiology 01/14/19 (Hist), [facility] Durable Medical Equipment Provider 07/05/19 Malia Scotradha Luevano [address], [place] [phone] Consulting Anesthesiology 01/20/20 Soheila Bhakta MD [address], [place] [phone] Consulting Dermatology 03/10/20 [facility] 06/26/16 Maureen Mccarty 07/12/16 [facility] 10/28/16 [facility] Physician Cardiology 11/14/17 [facility] 11/14/17 [facility] 03/03/19 Lou Gonzalez 01/20/19 Keara Ayers 02/20/17 Sales Office Coordinator Relationship Specialty Start Date End Date Nanda Oliveira MD [address], [place] [phone] PCP - General Family Practice 06/24/16 Daniel Ford [address] [place], [place] [address] Pain Management 11/14/17 Wan, [place] S [address] [place], [place] [phone] Physician Cardiology 01/14/19 (Hist), [facility] Durable Medical Equipment Provider 07/05/19 Shaquille Finley [address], [place] [id number] Consulting Anesthesiology 01/20/20 Soheila Bhakta MD [address], [place] [phone] Consulting Dermatology 03/10/20 [facility] 06/26/16 Maureen Mathewer 07/12/16 [facility] 10/28/16 [facility] Physician Cardiology 11/14/17 [facility] 11/14/17 Yelena 03/03/19 Lou Gonzalez 01/20/19 Keara Ayers 02/20/17 Sales Office Coordinator Relationship Specialty Start Date End Date Nanda Oliveira MD [address], [place] [id number] PCP - General Family Practice 06/24/16 Daniel Ford [address] [place] [address] Pain Management 11/14/17 Bart Blas [address] [facility] [address] [place] [address] Physician Cardiology 01/14/19 (Hist), [facility] Durable Medical Equipment Provider 07/05/19 Shaquille Finley [address], [place] [id number] Consulting Anesthesiology 01/20/20 Soheila Bhakta MD [address] [place] [address] Consulting Dermatology 03/10/20 [facility] 06/26/16 Maureen Mccarty 07/12/16 [facility] 10/28/16 [facility] Physician Cardiology 11/14/17 [facility] 11/14/17 Yelena 03/03/19 Lou Carlos 01/20/19 Favioglenislisa A[facility] 02/20/17 Sales Office Coordinator Relationship Specialty Start Date End Date Nanda Oliveira MD [address], [place] [phone] PCP - General Family Practice 06/24/16 Daniel Ford [address] [place], [place] [address] Pain Management 11/14/17 WanBart weinstein [address] [facility] [address] [place], [place] [phone] Physician Cardiology 01/14/19 (Hist), [facility] Durable Medical Equipment Provider 07/05/19 Shaquille Finley [address], [place] [phone] Consulting Anesthesiology 01/20/20 Soheila Bhakta MD [address], [place] [id number] Consulting Dermatology 03/10/20 [facility] 06/26/16 Maureen Mccarty 07/12/16 [facility] 10/28/16 [facility] Physician Cardiology 11/14/17 [facility] 11/14/17 [facility] 03/03/19 Lou Gonzalez 01/20/19 Keara Ayers 02/20/17 Sales Office Coordinator Relationship Specialty Start Date End Date Nanda Oliveira MD [address], [place] [phone] PCP - General Family Practice 06/24/16 Daniel Ford [address] [place], [place] [phone] Pain Management 11/14/17 Bart Blas [address] [place] [address] Physician Cardiology 01/14/19 (Hist), [facility] Durable Medical Equipment Provider 07/05/19 Shaquille Finley [address], [place] [phone] Consulting Anesthesiology 01/20/20 Soheila Bhakta MD [address], [place] [address] Consulting Dermatology 03/10/20 [facility] 06/26/16 Maureen Mccarty 07/12/16 [facility] 10/28/16 [facility] Physician Cardiology 11/14/17 [facility] 11/14/17 [facility] 03/03/19 Lou Gonzalez 01/20/19 Keara Ayers 02/20/17 Sales Office Coordinator Relationship Specialty Start Date End Date Nanda Oliveira MD [address], [place] [phone] PCP - General Family Practice 06/24/16 Daniel Fordery [address] [place], [place] [address] Pain Management 11/14/17 Wan, [place] S [address] [place], [place] [phone] Physician Cardiology 01/14/19 (Hist), [facility] Durable Medical Equipment Provider 07/05/19 Shaquille Finley [address] [place] [id number] Consulting Anesthesiology 01/20/20 Soheila Bhakta MD [address], [place] 495[address] Consulting Dermatology 03/10/20 [facility] 06/26/16 Maureen Mccarty 07/12/16 [facility] 10/28/16 [facility] Physician Cardiology 11/14/17 [facility] 11/14/17 Yelena 03/03/19 Lou Gonzalez 01/20/19 Keara Ayers 02/20/17 Sales Office Coordinator Relationship Specialty Start Date End Date Nanda Oliveira MD [address], [place] [phone] PCP - General Family Practice 06/24/16 Daniel Ford [address] [place] [address] Pain Management 11/14/17 Wan, [place] S [address] [place] [address] Physician Cardiology 01/14/19 (Hist), [facility] Medical Supplies Durable Medical Equipment Provider 07/05/19 Malia Shaquille Luevano [address], [place] [address] Consulting Anesthesiology 01/20/20 Soheila Bhakta MD [address] [place] [address] Consulting Dermatology 03/10/20 [facility] 06/26/16 Maureen Mccarty 07/12/16 [facility] 10/28/16 [facility] Physician Cardiology 11/14/17 [facility] 11/14/17 Yelena 03/03/19 Lou Gonzalez 01/20/19 Keara Ayers 02/20/17 Sales Office Coordinator Relationship Specialty Start Date End Date Nanda Oliveira MD [address], [place] 479[address] PCP - General Family Practice 06/24/16 Daniel Ford [address] [place] [address] Pain Management 11/14/17 Wan, Bart S [address] [place], [place] [address] Physician Cardiology 01/14/19 (Hist), [facility] Durable Medical Equipment Provider 07/05/19 Migelruy Shaquille Luevano [address], [place] [phone] Consulting Anesthesiology 01/20/20 Soheila Bhakta MD [address], [place] [address]395[address] Consulting Dermatology 03/10/20 [facility] 06/26/16 Maureen Mccarty 07/12/16 [facility] 10/28/16 [facility] Physician Cardiology 11/14/17 [facility] 11/14/17 Yelena 03/03/19 Lou Gonzalez 01/20/19 Keara Ayers 02/20/17 Sales Office Coordinator Relationship Specialty Start Date End Date Nanda Oliveira MD [address], [place] [id number] PCP - General Family Practice 06/24/16 Daniel Ford [address] [phone] Pain Management 11/14/17 Bart Blas [address] [phone] Physician Cardiology 01/14/19 (Hist), [facility] Durable Medical Equipment Provider 07/05/19 Shaquille Finley [address] [place] [address] Consulting Anesthesiology 01/20/20 Soheila Bhakta MD [address], [place] [id number] Consulting Dermatology 03/10/20 [facility] 06/26/16 Maureen Mccarty 07/12/16 [facility] 10/28/16 [facility] Physician Cardiology 11/14/17 [facility] 11/14/17 Yelena 03/03/19 Lou Gonzalez 01/20/19 Keara Ayers 02/20/17 Sales Office Coordinator Relationship Specialty Start Date End Date Nanda Oliveira MD [address], [place] [address] PCP - General Family Practice 06/24/16 Daniel Ford [address] [place] [address] Pain Management 11/14/17 [facility]as [facility] [facility] [address] [place] [address] Physician Cardiology 01/14/19 (Hist), [facility] Durable Medical Equipment Provider 07/05/19 Shaquille Finley [address], [place] [phone] Consulting Anesthesiology 01/20/20 Soheila Bhakta MD [address] [place] [address] Consulting Dermatology 03/10/20 [facility] 06/26/16 Maureen Mccarty 07/12/16 [facility] 10/28/16 [facility] Physician Cardiology 11/14/17 Kin[facility] 11/14/17 Yelena 03/03/19 Lou Carlos 01/20/19 Marylisa Ayers 02/20/17 Sales Office Coordinator Relationship Specialty Start Date End Date Nanda Oliveira MD [address], [place] [phone] PCP - General Family Medicine 06/24/16 Daniel Ford [address] [place], [place] [address] Pain Management 11/14/17 Philip Blasrirenae Ty [address] [place], [place] [phone] Physician Cardiology 01/14/19 (Hist), [facility] Supp[facility] Durable Medical Equipment Provider 07/05/19 Shaquille Finley [address] [place] [address] Consulting Anesthesiology 01/20/20 Soheila Bhakta MD [address], [place] [phone] Consulting Dermatology 03/10/20 [facility] 06/26/16 Maureen Mccarty 07/12/16 [facility] 10/28/16 [facility] Physician Cardiology 11/14/17 [facility] 11/14/17 [facility] 03/03/19 Lou Gonzalez 01/20/19 Keara Ayers 02/20/17 Sales Office Coordinator Relationship Specialty Start Date End Date Nanda Oliveira MD [address], [place] [id number] PCP - General Family Medicine 06/24/16 Daniel Ford [address] [place], [place] [phone] Pain Management 11/14/17 Philip Blasril S [address] [place], [place] [id number] Physician Cardiology 01/14/19 (Hist), [facility] Supplies Durable Medical Equipment Provider 07/05/19 Shaquille Finley [address], [place] [phone] Consulting Anesthesiology 01/20/20 Soheila Bhakta MD [address], [place] [id number] Consulting Dermatology 03/10/20 [facility] 06/26/16 Maureen Mccarty 07/12/16 [facility] 10/28/16 [facility] Physician Cardiology 11/14/17 [facility] 11/14/17 [facility] 03/03/19 Lou Gonzalez 01/20/19 Keara Ayers 02/20/17 Sales Office Coordinator Relationship Specialty Start Date End Date Nanda Oliveira MD [address], [place] [phone] PCP - General Family Medicine 06/24/16 Daniel Ford [address] [place], [place] [address] Pain Management 11/14/17 Wan, Bart S [address] [place], [place] [phone] Physician Cardiology 01/14/19 (Hist), [facility] Medical Supplies Durable Medical Equipment Provider 07/05/19 Shaquille Finley [address], [place] [phone] Consulting Anesthesiology 01/20/20 Soheila Bhakta MD [address], [place] [id number] Consulting Dermatology 03/10/20 [facility] 06/26/16 Maureen Mccarty 07/12/16 [facility] 10/28/16 [facility] Physician Cardiology 11/14/17 [facility] 11/14/17 Yelena 03/03/19 Lou Gonzalez 01/20/19 Keara Ayers 02/20/17 Sales Office Coordinator Relationship Specialty Start Date End Date Nanda Oliveira MD [address], [place] [phone] PCP - General Family Medicine 06/24/16 Daniel Ford [address] [place] [address] Pain Management 11/14/17 Wan, [place] S [address] [place] [address] Physician Cardiology 01/14/19 (Hist), [facility] Medical Supplies Durable Medical Equipment Provider 07/05/19 Shaquille Finley [address], [place] [phone] Consulting Anesthesiology 01/20/20 Soheila Bhakta MD [address], [place] [id number] Consulting Dermatology 03/10/20 [facility] 06/26/16 Maureen Mccarty 07/12/16 [facility] 10/28/16 [facility] Physician Cardiology 11/14/17 [facility] 11/14/17 Yelena 03/03/19 Lou Gonzalez 01/20/19 Keara Ayers 02/20/17 Sales Office Coordinator Relationship Specialty Start Date End Date Nanda Oliveira MD [address], [place] [id number] PCP - General Family Medicine 06/24/16 Daniel Ford [address] [place] [address] Pain Management 11/14/17 Wan, [place] S [address] [place] [address] Physician Cardiology 01/14/19 (Hist), [facility] Durable Medical Equipment Provider 07/05/19 Shaquille Finley [address] [place], [place] [id number] Consulting Anesthesiology 01/20/20 Soheila Bhakta MD [address] [place], [place] [id number] Consulting Dermatology 03/10/20 [facility] 06/26/16 Maureen Mccarty 07/12/16 [facility] 10/28/16 [facility] Physician Cardiology 11/14/17 [facility] 11/14/17 Yelena 03/03/19 Lou Gonzalez 01/20/19 Keara Ayers 02/20/17 Sales Office Coordinator Relationship Specialty Start Date End Date Nanda Oliveira MD [address], [place] [id number] PCP - General Family Medicine 06/24/16 Daniel Ford [address] [id number] Pain Management 11/14/17 Bart Blas [address] [id number] Physician Cardiology 01/14/19 (Hist), [facility] Durable Medical Equipment Provider 07/05/19 Shaquille Finley [address] [place] [address] Consulting Anesthesiology 01/20/20 Soheila Bhakta MD [address], [place] [id number] Consulting Dermatology 03/10/20 [facility] 06/26/16 Maureen Mccarty 07/12/16 [facility] 10/28/16 [facility] Physician Cardiology 11/14/17 [facility] 11/14/17 Yelena 03/03/19 Lou Gonzalez 01/20/19 Keara Ayers 02/20/17 Sales Office Coordinator Relationship Specialty Start Date End Date Nanda Oliveira MD [address], [place] 865621 PCP - General Family Medicine 06/24/16 Daniel Ford [address] [place] [address] Pain Management 11/14/17 Bart Blas [address] [facility] [address] [place], [place] [address]251 Physician Cardiology 01/14/19 (Hist), [facility] Durable Medical Equipment Provider 07/05/19 Shaquille Finley [address], [place] [phone] Consulting Anesthesiology 01/20/20 Soheila Bhakta MD [address], [place] [id number] Consulting Dermatology 03/10/20 [facility] 06/26/16 Maureen Mccarty 07/12/16 [facility] 10/28/16 [facility] Physician Cardiology 11/14/17 Kinj[facility] Ferreira 11/14/17 Yelena 03/03/19 Lou Carlos 01/20/19 Marylisa Ayers 02/20/17 Sales Office Coordinator Relationship Specialty Start Date End Date Nanda Oliveira MD [address], [place] [phone] PCP - General Family Medicine 06/24/16 Daniel Ford [address] [place], [place] [id number] Pain Management 11/14/17 WanPhilip weinsteinril S [address] [place], [place] [phone] Physician Cardiology 01/14/19 (Hist), [facility] Durable Medical Equipment Provider 07/05/19 Shaquille Finley [address], [place] [phone] Consulting Anesthesiology 01/20/20 Soheila Bhakta MD [address] [place] [address] Consulting Dermatology 03/10/20 [facility] 06/26/16 Maureen Mccarty 07/12/16 [facility] 10/28/16 [facility] Physician Cardiology 11/14/17 [facility] 11/14/17 [facility] 03/03/19 Lou Gonzalez 01/20/19 Keara Ayers 02/20/17 Sales Office Coordinator Relationship Specialty Start Date End Date Nanda Oliveira MD [address], [place] [id number] PCP - General Family Medicine 06/24/16 Daniel Ford [address] [place], [place] [phone] Pain Management 11/14/17 Bart Blas [address] [place], [place] [id number] Physician Cardiology 01/14/19 (Hist), [facility] Durable Medical Equipment Provider 07/05/19 Shaquille Finley [address] [place] [address] Consulting Anesthesiology 01/20/20 Soheila Bhakta MD [address], [place] 8570122 Consulting Dermatology 03/10/20 [facility] 06/26/16 Maureen Mccarty 07/12/16 [facility] 10/28/16 [facility] Physician Cardiology 11/14/17 [facility] 11/14/17 [facility] 03/03/19 Lou Gonzalez 01/20/19 Keara Ayers 02/20/17 Sales Office Coordinator Relationship Specialty Start Date End Date Nanda Oliveira MD [address], [place] 764631 PCP - General Family Medicine 06/24/16 Daniel Ford [address] [place] [address] Pain Management 11/14/17 Wan, Bart S [address] [place] [address] Physician Cardiology 01/14/19 (Hist), [facility] [address] [address] Durable Medical Equipment Provider 07/05/19 Shaquille Finley [address], [place] [phone] Consulting Anesthesiology 01/20/20 Soheila Bhakta MD [address] [place], [place] 4294122 Consulting Dermatology 03/10/20 [facility] 06/26/16 Maureen Mccarty 07/12/16 [facility] 10/28/16 [facility] Physician Cardiology 11/14/17 [facility] 11/14/17 Yelena 03/03/19 Lou Gonzalez 01/20/19 Keara Ayers 02/20/17 Sales Office Coordinator Relationship Specialty Start Date End Date Nanda Oliveira MD [address], [place] [phone] PCP - General Family Medicine 06/24/16 Daniel Ford [address] [place] [address] Pain Management 11/14/17 Wan, Bart S [address] [place], [place] [id number] Physician Cardiology 01/14/19 (Hist), [facility] [address] [place] [address] Durable Medical Equipment Provider 07/05/19 Shaquille Finley [address], [place] [id number] Consulting Anesthesiology 01/20/20 Soheila Bhakta MD [address] [place] [address] Consulting Dermatology 03/10/20 [facility] 06/26/16 Maureen Mccarty 07/12/16 [facility] 10/28/16 [facility] Physician Cardiology 11/14/17 [facility] 11/14/17 Yelena 03/03/19 Lou Gonzalez 01/20/19 Keara Ayers 02/20/17 Sales Office Coordinator Relationship Specialty Start Date End Date Nanda Oliveira MD [address], [place] [phone] PCP - General Family Medicine 06/24/16 Daniel Ford [address] [place], [place] [phone] Pain Management 11/14/17 Wan, Bart S [address] [place], [place] [phone] Physician Cardiology 01/14/19 (Hist), [facility] [address] [place] [address] Durable Medical Equipment Provider 07/05/19 Malia Shaquille Luevano [address], [place] [phone] Consulting Anesthesiology 01/20/20 Soheila Bhakta MD [address] [place] [address] Consulting Dermatology 03/10/20 [facility] 06/26/16 Maureen Mccarty 07/12/16 [facility] 10/28/16 [facility] Physician Cardiology 11/14/17 [facility] 11/14/17 Yelena 03/03/19 Lou Gonzalez 01/20/19 Keara Ayers 02/20/17 Sales Office Coordinator Relationship Specialty Start Date End Date Nanda Oliveira MD [address], [place] [id number] PCP - General Family Medicine 06/24/16 Daniel Ford [address] [facility] [address] [place], [place] [phone] Pain Management 11/14/17 Wan, [place] S [address] [place], [place] [id number] Physician Cardiology 01/14/19 (Hist), [facility] [address] [place] [address] Durable Medical Equipment Provider 07/05/19 Shaquille Finley [address] [place], [place] 804021 Consulting Anesthesiology 01/20/20 Soheila Bhakta MD [address] [place], [place] 8879922 Consulting Dermatology 03/10/20 [facility] 06/26/16 Maureen Mccarty 07/12/16 [facility] 10/28/16 [facility] Physician Cardiology 11/14/17 [facility] 11/14/17 Yelena 03/03/19 Lou Gonzalez 01/20/19 Keara Ayers 02/20/17 Sales Office Coordinator Relationship Specialty Start Date End Date Nanda Oliveira MD [address], [place] [id number] PCP - General Family Medicine 06/24/16 Daniel Ford [address] [address] Pain Management 11/14/17 Wan, Bart S [address] [place] [address] Physician Cardiology 01/14/19 (Hist), [facility] [address] [place] [address] Durable Medical Equipment Provider 07/05/19 Shaquille Finley [address], [place] [phone] Consulting Anesthesiology 01/20/20 Soheila Bhakta MD [address] [place] [address] Consulting Dermatology 03/10/20 [facility] 06/26/16 Maureen Inmansier 07/12/16 [facility] 10/28/16 [facility] Physician Cardiology 11/14/17 [facility] 11/14/17 Yelena 03/03/19 Lou Gonzalez 01/20/19 Keara Ayers 02/20/17 Sales Office Coordinator Relationship Specialty Start Date End Date Nanda Oliveira MD [address], [place] 247841 PCP - General Family Medicine 06/24/16 Daniel Ford [address] [place] [address] Pain Management 11/14/17 Wan, [place] S [address] [place] [address] Physician Cardiology 01/14/19 (Hist), [facility] [address] [place] [address] Durable Medical Equipment Provider 07/05/19 Shaquille Finley [address], [place] [phone] Consulting Anesthesiology 01/20/20 Soheila Bhakta MD [address] [place] [address] Consulting Dermatology 03/10/20 [facility] 06/26/16 Maureen Mccarty 07/12/16 [facility] 10/28/16 [facility] Physician Cardiology 11/14/17 [facility] 11/14/17 Yelena 03/03/19 Lou Gonzalez 01/20/19 Keara Santosruy 02/20/17 Team Status: Active Member Role Status Dates Dr. Bhupendra Oliveira MD Family Provider Active Dr. Bhupendra Oliveira MD Primary Care Provider Acti ve Team Status: Inactive Member Role Status Dates Dr. Bhupednra Oliveira MD Primary Care Provider, Ref erring Provider Active Uma Vela PA, PA Attending Provider Active Team Status: Active Member Role Status Dates Dr. Bhupendra Oliveira MD Primary Care Provider Acti ve Dr. Kodi Agee MD Emergency Provider Active Dr. James Cohn DO Admit Provider, At tending Provider, Other Provider Active Team Status: Active Member Role Status Dates Dr. Bhupendra Oliveira MD Primary Care Provider Acti ve Dr. Kodi Agee MD Emergency Provider Active Dr. James Cohn DO Admit Provider, Other Provider A ctive Dr. Arlyn Leslie MD Other Provider Active Dr. Roger Yang MD Attending Provider, Other Provider Active Team Status: Active Member Role Status Dates Dr. Bhupendra Oliveira MD Primary Care Provider Acti ve Dr. Kodi Agee MD Emergency Provider Active Dr. James Cohn DO Admit Provider, Other Provider A ctive Dr. Arlyn Leslie MD Other Provider Active Dr. Michelle Gregg DO Attending Provider, Other Provide r Active Dr. Roger Yang MD Other Provider Active Team Status: Active Member Role Status Dates Dr. Bhupendra Oliveira MD Primary Care Provider Acti ve Dr. Syed Jeronimo MD Attending Provider Active Dr. Arlyn Leslie MD Referring Provider Active Team Status: Active Member Role Status Dates Dr. Bhupendra Oliveira MD Primary Care Provider Acti ve Uma Vela PA, PA Other Provider Active Dr. Jose Armando Ramsey MD Attending Provider Active Team Status: Active Member Role Status Dates Dr. Bhupendra Oliveira MD Primary Care Provider Acti ve Dr. Jose Armando Ramsey MD Attending Provider Active Dr. James Cohn DO Referring Provider Active Team Status: Inactive Member Role Status Dates Dr. Bhupendra Oliveira MD Primary Care Provider Acti ve Dr. Kodi Agee MD Emergency Provider Active Dr. James Cohn DO Admit Provider, Other Provider A ctive Dr. Arlyn Leslie MD Other Provider Active Dr. Michelle Gregg DO Attending Provider Active Dr. Roger Yang MD Other Provider Active Team Status: Inactive Member Role Status Dates Dr. Bhupendra Oliveira MD Primary Care Provider Acti ve Dr. Arlyn Leslie MD Attending Provider, Referring P jose Active Team Status: Inactive Member Role Status Dates Dr. Bhupendra Oliveira MD Primary Care Provider Acti ve Uma Vela PA, PA Attending Provider Active Sales Office Coordinator Relationship Specialty Start Date End Date Nanda Oliveira MD [address], [place] [address]86151 PCP - General Family Medicine 06/24/16 Daniel Ford [address] [place], [place] [address]211 Pain Management 11/14/17 Wan, [place] S [address] [place], [place] 900191 Physician Cardiology 01/14/19 (Hist), [facility] [address] [place] [address] Durable Medical Equipment Provider 07/05/19 Shaquille Finley [address] [place] [address] [id number] Consulting Anesthesiology 01/20/20 Soheila Bhakta MD [address] [place] [address] Consulting Dermatology 03/10/20 [facility] 06/26/16 Maureen Mccarty 07/12/16 [facility] 10/28/16 [facility] Physician Cardiology 11/14/17 [facility] 11/14/17 [facility] 03/03/19 Lou Gonzalez 01/20/19 Keara Ayers 02/20/17 Team Status: Inactive Member Role Status Dates Dr. Bhupendra Oliveira MD Primary Care Provider, Ref erring Provider Active Dr. Jose Armando Ramsey MD Attending Provider Active Team Status: Inactive Member Role Status Dates Dr. Bhupendra Oliveira MD Primary Care Provider, Ref erring Provider Active Zaid Fish PAPERHANGER [employer] PAINTER, P[employer]ERHANGER [employer] PAINTER-C Attending Provider Active Team Status: Active Member Role Status Dates Dr. Bhupendra Oliveira MD Primary Care Provider Acti ve Dr. Arlyn Leslie MD Admit Provider, R eferring Provider, Other Provider Active Pancho MORA PA-C Other Provider Active Dr. Yared Fernández DO Attending Provider, Other Pro vider Active Team Status: Inactive Member Role Status Dates Dr. Bhupendra Oliveira MD Primary Care Provider Acti ve Dr. Arlyn Leslie MD Admit Provider, A ttending Provider, Referring Provider Active Pancho MORA PA-C Other Provider Active Dr. Yared Fernández DO Other Provider Active Team Status: Active Member Role Status Dates Dr. Bhupendra Oliveira MD Primary Care Provider Acti ve Dr. Arlyn Leslie MD Admit Provider, Other Provider Active Pancho MORA PA-C Other Provider Active Dr. Yared Fernández DO Attending Provider, Other Pro vider Active Team Status: Inactive Member Role Status Dates Dr. Bhupendra Oliveira MD Primary Care Provider Acti ve Dr. Maryanne Castro , DO Emergency Provider Active Sales Office Coordinator Relationship Specialty Start Date End Date Nanda Oliveira MD [address], [place] 8[address]31 PCP - General Family Medicine 06/24/16 Daniel Ford [address] [place], [place] 108201 Pain Management 11/14/17 Wan, Bart S [address] [place], [place] [phone] Physician Cardiology 01/14/19 (Hist), [facility] [address] [place] [address] Durable Medical Equipment Provider 07/05/19 Shaquille Finley [address], [place] 427971 Consulting Anesthesiology 01/20/20 Soheila Bhakta MD [address], [place] 5159022 Consulting Dermatology 03/10/20 [facility] 06/26/16 Maureen Mccarty 07/12/16 [facility] 10/28/16 [facility] Physician Cardiology 11/14/17 [facility] 11/14/17 Yelena 03/03/19 Lou Gonzalez 01/20/19 Keara Ayers 02/20/17 Sales Office Coordinator Relationship Specialty Start Date End Date Nanda Oliveira MD [address] [place] [address] PCP - General Family Medicine 06/24/16 Daniel Ford [address] [place], [place] 134[address]61 Pain Management 11/14/17 Wan, Bart S [address] [place], [place] [phone] Physician Cardiology 01/14/19 (Hist), [facility] [address] [place] [address] Durable Medical Equipment Provider 07/05/19 Shaquille Finley [address], [place] [phone] Consulting Anesthesiology 01/20/20 Soheila Bhakta MD [address] [place] [address] Consulting Dermatology 03/10/20 [facility] 06/26/16 Maureen Mccarty 07/12/16 [facility] 10/28/16 [facility] Physician Cardiology 11/14/17 [facility] 11/14/17 Yelena 03/03/19 Lou Gonzalez 01/20/19 Keara Ayers 02/20/17 Sales Office Coordinator Relationship Specialty Start Date End Date Nanda Oliveira MD [address], [place] [phone] PCP - General Family Medicine 06/24/16 Daniel Ford [address] [place], [place] [phone] Pain Management 11/14/17 Wan, [place] S [address] 7654[address] Physician Cardiology 01/14/19 (Hist), [facility] [address] [address] Durable Medical Equipment Provider 07/05/19 Malia Scotradha Luevano [address], [place] 467061 Consulting Anesthesiology 01/20/20 Soheila Bhakta MD [address] [place] [address] Consulting Dermatology 03/10/20 [facility] 06/26/16 Maureen Mccarty 07/12/16 [facility] 10/28/16 [facility] Physician Cardiology 11/14/17 [facility] 11/14/17 Yelena 03/03/19 Lou Gonzalez 01/20/19 Keara Ayers 02/20/17 Team Status: Inactive Member Role Status Dates Dr. Bhupendra Oliveira MD Primary Care Provider Acti ve Dr. Maryanne Castro , Attending Provider, Emergency David garcia Active Team Status: Inactive Member Role Status Dates Dr. Bhupendra Oliveira MD Primary Care Provider Acti ve Dr. Thai Khan DO Emergency Provider Active Team Status: Inactive Member Role Status Dates Dr. Bhupendra Oliveira MD Primary Care Provider Acti ve Dr. Alex Regalado , Emergency Provider Active Sales Office Coordinator Relationship Specialty Start Date End Date Nanda Oliveira MD [address], [place] [phone] PCP - General Family Medicine 06/24/16 Daniel Ford [address] [place], [place] [phone] Pain Management 11/14/17 Wan, Bart S [address] [place], [place] [phone] Physician Cardiology 01/14/19 (Hist), [facility] [address] [place] [address] Durable Medical Equipment Provider 07/05/19 Shaquille Finley [address] [place] [address] [id number] Consulting Anesthesiology 01/20/20 Soheila Bhakta MD [address] [place] [address] Consulting Dermatology 03/10/20 [facility] 06/26/16 Maureen Mccarty 07/12/16 [facility] 10/28/16 [facility] Physician Cardiology 11/14/17 [facility] 11/14/17 Yelena 03/03/19 Lou Gonzalez 01/20/19 Keara Ayers 02/20/17 Sales Office Coordinator Relationship Specialty Start Date End Date Nanda Oliveira MD [address], [place] [id number] PCP - General Family Medicine 06/24/16 Daniel Ford [address] [place], [place] [phone] Pain Management 11/14/17 Wan, Bart S [address] [phone] Physician Cardiology 01/14/19 (Hist), [facility] [address] [facility] [address] [address] Durable Medical Equipment Provider 07/05/19 Shaquille Finley [address], [place] [phone] Consulting Anesthesiology 01/20/20 Soheila Bhakta MD [address] [place] [address] Consulting Dermatology 03/10/20 [facility] 06/26/16 Maureen Mccarty 07/12/16 [facility] 10/28/16 [facility] Physician Cardiology 11/14/17 [facility] 11/14/17 Yelena 03/03/19 Lou Gonzalez 01/20/19 Keara Ayers 02/20/17 Sales Office Coordinator Relationship Specialty Start Date End Date Nanda Oliveira MD [address], [place] [phone] PCP - General Family Medicine 06/24/16 Daniel Ford [address] [phone] Pain Management 11/14/17 Wan, [place] S [address] [phone] Physician Cardiology 01/14/19 (Hist), [facility] [address] [place] [address] Durable Medical Equipment Provider 07/05/19 Shaquille Finley [address], [place] 169251 Consulting Anesthesiology 01/20/20 Soheila Bhakta MD [address], [place] 6475522 Consulting Dermatology 03/10/20 [facility] 06/26/16 Maureen Mccarty 07/12/16 [facility] 10/28/16 [facility] Physician Cardiology 11/14/17 [facility] 11/14/17 Yelena 03/03/19 Lou Gonzalez 01/20/19 Keara Ayers 02/20/17 Sales Office Coordinator Relationship Specialty Start Date End Date Nanda Oliveira MD [address], [place] [phone] PCP - General Family Medicine 06/24/16 Daniel Ford [address] 560281 Pain Management 11/14/17 Wan Bart S [address] [place] [address] [id number] Physician Cardiology 01/14/19 (Hist), [facility] [address] [place] [address] Durable Medical Equipment Provider 07/05/19 Shaquille Finley [address], [place] 472011 Consulting Anesthesiology 01/20/20 Soheila Bhakta MD [address], [place] 6308022 Consulting Dermatology 03/10/20 [facility] 06/26/16 Maureen Mccarty 07/12/16 [facility] 10/28/16 [facility] Physician Cardiology 11/14/17 [facility] 11/14/17 Yelena 03/03/19 Lou Gonzalez 01/20/19 Keara Ayers 02/20/17 Sales Office Coordinator Relationship Specialty Start Date End Date Nanda Oliveira MD [address], [place] 170791 PCP - General Family Medicine 06/24/16 Daniel Ford [address] [address] Pain Management 11/14/17 Wan, Bart S [address] [place] [address] Physician Cardiology 01/14/19 (Hist), [facility] [address] [place] [address] Durable Medical Equipment Provider 07/05/19 Shaquille Finley [address], [place] 080281 Consulting Anesthesiology 01/20/20 Soheila Bhakta MD [address] [place] [address] Consulting Dermatology 03/10/20 [facility] 06/26/16 Maureen Bibiana 07/12/16 [facility] 10/28/16 [facility] Physician Cardiology 11/14/17 [facility] 11/14/17 Yelena 03/03/19 Lou Gonzalez 01/20/19 Keara Ayers 02/20/17 Team Status: Inactive Member Role Status Dates Dr. Bhupendra Oliveira MD Primary Care Provider Acti ve Dr. Thai Khan , Attending Provider, Emergency Pr ovider Active Team Status: Inactive Member Role Status Dates Dr. Bhupendra Oliveira MD Primary Care Provider Acti ve Dr. Alex Regalado , Attending Provider, Emergency Provider Active Sales Office Coordinator Relationship Specialty Start Date End Date Nanda Oliveira MD [address], [place] [id number] PCP - General Family Medicine 06/24/16 Daniel Ford [address] [facility] [address] [place], [place] [phone] Pain Management 11/14/17 Wan, [place] S [address] [place], [place] [phone] Physician Cardiology 01/14/19 (Hist), [facility] [address] [place] [address] Durable Medical Equipment Provider 07/05/19 Shaquille Finley [address] [place] [address] [phone] Consulting Anesthesiology 01/20/20 Soheila Bhakta MD [address] [place] [address] Consulting Dermatology 03/10/20 [facility] 06/26/16 Maureen Mccarty 07/12/16 [facility] 10/28/16 [facility] Physician Cardiology 11/14/17 [facility] 11/14/17 Yelena 03/03/19 Lou Gonzalez 01/20/19 Keara Ayers 02/20/17 Sales Office Coordinator Relationship Specialty Start Date End Date Nanda Oliveira MD [address], [place] [phone] PCP - General Family Medicine 06/24/16 Daniel Ford [address] [facility] [address] [place] [address] Pain Management 11/14/17 Bart Blas [address] [place], [place] 299461 Physician Cardiology 01/14/19 (Hist), [facility] [address] [facility] [address] [place] [address] Durable Medical Equipment Provider 07/05/19 Shaquille Finley [address] [place] [address] [id number] Consulting Anesthesiology 01/20/20 Soheila Bhakta MD [address] [place] [address] Consulting Dermatology 03/10/20 [facility] 06/26/16 Maureen Mathewer 07/12/16 [facility] 10/28/16 [facility] Physician Cardiology 11/14/17 [facility] 11/14/17 Yelena 03/03/19 Lou Gonzalez 01/20/19 Keara Ayers 02/20/17 Sales Office Coordinator Relationship Specialty Start Date End Date Nanda Oliveira MD [address] [place], [place] 520041 PCP - General Family Medicine 06/24/16 Daniel Ford [address] [place] [address] Pain Management 11/14/17 Bart Blas [address] [address] Physician Cardiology 01/14/19 (Hist), [facility] [facility] [address] [facility] [address] [address] Durable Medical Equipment Provider 07/05/19 Shaquille Finley [address] [place] [address] Consulting Anesthesiology 01/20/20 Soheila Bhakta MD [address] [place] [address] Consulting Dermatology 03/10/20 [facility] 06/26/16 Maureen Mathewer 07/12/16 [facility] 10/28/16 [facility] Physician Cardiology 11/14/17 [facility] 11/14/17 Yelena 03/03/19 Lou Gonzalez 01/20/19 Keara Ayers 02/20/17 Sales Office Coordinator Relationship Specialty Start Date End Date Nanda Oliveira MD [address] [place] [address] PCP - General Family Medicine 06/24/16 Daniel Ford [address] [place], [place] [address]Y [facility] [address] [place] [address] Pain Management 11/14/17 Bart Blas [address] [place] [address] Physician Cardiology 01/14/19 (Hist), [facility] [address] [facility] [address] [facility] [address] [place] [address] Durable Medical Equipment Provider 07/05/19 Shaquille Finley [address] [place] [address] Consulting Anesthesiology 01/20/20 Soheila Bhakta MD [address] [place] [address] Consulting Dermatology 03/10/20 [place] [facility] 06/26/16 Maureen Bibiana 07/12/16 [facility] 10/28/16 [facility] Physician Cardiology 11/14/17 [facility] 11/14/17 Yelena 03/03/19 Lou Carlos 01/20/19 Keara Ayers 02/20/17 Team Status: Inactive Member Role Status Dates Dr. Bhupendra Oliveira MD Primary Care Provider Acti ve Dr. Maria Fernanda Moss , DO Attending Provider, Emergency Pro vider Active Team Status: Inactive Member Role Status Dates Dr. Bhupendra Oliveira MD Primary Care Provider Acti ve Ed Physician Provider Emergency Provider Active Sales Office Coordinator Relationship Specialty Start Date End Date Nanda Oliveira MD [address] [place], [place] [id number] PCP - General Family Medicine 06/24/16 Daniel Ford [address] [place] [address] Pain Management 11/14/17 Wan, Bart S [address] [place], [place] [address] Physician Cardiology 01/14/19 (Hist), [facility] [address] [place] [address] Durable Medical Equipment Provider 07/05/19 Shaquille Finley [address] [place] [address] [phone] Consulting Anesthesiology 01/20/20 Soheila Bhakta MD [address] [place] [address] Consulting Dermatology 03/10/20 [facility] 06/26/16 Maureen Mccarty 07/12/16 [facility] 10/28/16 [facility] Physician Cardiology 11/14/17 [facility] 11/14/17 Yelena 03/03/19 Lou Gonzalez 01/20/19 Keara Ayers 02/20/17 Sales Office Coordinator Relationship Specialty Start Date End Date Nanda Oliveira MD [address] [place], [place] [address] PCP - General Family Medicine 06/24/16 Daniel Ford MD [address] [facility] [address] [facility] [address] [place], [place] [address] Pain Management 11/14/17 Bart Blas [address] [place], [place] [address] Physician Cardiology 01/14/19 (Hist), [facility] [address] [facility] [address] [place] [address] Durable Medical Equipment Provider 07/05/19 Shaquille Finley [address] [place] [address] [id number] Consulting Anesthesiology 01/20/20 Soheila Bhakta MD [address] [place] [address] Consulting Dermatology 03/10/20 [facility] 06/26/16 Maureen Mccarty 07/12/16 [facility] 10/28/16 [facility] Physician Cardiology 11/14/17 [facility] 11/14/17 Yelena 03/03/19 Lou Gonzalez 01/20/19 Keara Ayers 02/20/17 Sales Office Coordinator Relationship Specialty Start Date End Date Nanda Oliveira MD [address] [place] [address] PCP - General Family Medicine 06/24/16 [place] [address] [place] [address] Pain Management 11/14/17 Bart Blas [address] [address] Physician Cardiology 01/14/19 (Hist), [facility] [address] [facility] [address] [address] Durable Medical Equipment Provider 07/05/19 Shaquille Finley [address] [place] [address] Consulting Anesthesiology 01/20/20 Soheila Bhakta MD [address] [place] [address] Consulting Dermatology 03/10/20 [facility] 06/26/16 Maureen Mccarty 07/12/16 [facility] 10/28/16 [facility] Physician Cardiology 11/14/17 [facility] 11/14/17 Yelena 03/03/19 Lou Gonzalez 01/20/19 Keara Ayers 02/20/17 Team Status: Active Member Role Status Dates Dr. Bhupendra Oliveira MD Primary Care Provider Acti ve Dr. Maria Fernanda Moss , DO Emergency Provider Active Dr. Yared Fernández , DO Admit Provider, Other Provide r Active Dr. Bart Blas MD Attending Provider, Other Provide r Active Team Status: Active Member Role Status Dates Dr. Bhupendra Oliveira MD Primary Care Provider Acti ve Dr. Maria Fernanda Moss , Emergency Provider Active Dr. Yared Fernández , DO Admit Provider, Attending Provider, Other Provider Active Dr. Bart Blas MD Other Provider Active Team Status: Active Member Role Status Dates Dr. Bhupendra Oliveira MD Primary Care Provider Acti ve Dr. Bart Blas MD Attending Provider Active Team Status: Active Member Role Status Dates Dr. Bhupendra Oliveira MD Primary Care Provider Acti ve Akiko Cordero P[employer]ERHANGER [employer] PAINTER, [employer] Attending Provider Active Team Status: Active Member Role Status Dates Dr. Bhupendra Oliveira MD Primary Care Provider Acti ve Dr. Maria Fernanda Moss , Emergency Provider Active Dr. Yared Fernández , DO Admit Provider, Other Provide r Active Dr. Bart Blas MD Other Provider Active Dr. Roger Yang MD Attending Provider, Other Provider Active Team Status: Active Member Role Status Dates Dr. Bhupendra Oliveira MD Primary Care Provider Acti ve Dr. Maria Fernanda Moss , DO Emergency Provider Active Dr. Yared Fernández , DO Admit Provider, Other Provide r Active Dr. Bart Blas MD Attending Provider, Other Provide r Active Dr. Roger Yang MD Other Provider Active Team Status: Inactive Member Role Status Dates Dr. Bhupendra Oliveira MD Primary Care Provider Acti ve Ed Physician Provider Attending Provider, Emergency Pr ovider Active Team Status: Inactive Member Role Status Dates Dr. Bhupendra Oliveira MD Primary Care Provider Acti ve Dr. Maria Fernanda Moss , DO Emergency Provider Active Dr. Yared Fernández , DO Admit Provider, Other Provide r Active Dr. Bart Blas MD Other Provider Active Dr. Roger Yang MD Attending Provider Active Sales Office Coordinator Relationship Specialty Start Date End Date Nanda Oliveira MD [address] [place], [place] [address]04381 PCP - General Family Medicine 06/24/16 Daniel Ford MD [address] [facility] [address] [address] Pain Management 11/14/17 Bart Blas [address] [address] Physician Cardiology 01/14/19 (Hist), [facility] [address] [facility] [address] [address] Durable Medical Equipment Provider 07/05/19 Shaquille Finley MD [address] [place] [address] Consulting Anesthesiology 01/20/20 Soheila Bhakta MD [address] [place] [address] Consulting Dermatology 03/10/20 [facility] 06/26/16 Maureen Mccarty 07/12/16 [facility] 10/28/16 [facility] Physician Cardiology 11/14/17 [facility] 11/14/17 Yelena 03/03/19 Lou Gonzalez 01/20/19 Keara Santosruy 02/20/17 Sales Office Coordinator Relationship Specialty Start Date End Date Nanda Oliveira MD [address] [place], [place] 84[address] PCP - General Family Medicine 06/24/16 [place] [address] [place] [address] Pain Management 11/14/17 Bart Blas MD [address] [address] Physician Cardiology 01/14/19 (Hist), [facility] [address] [address] Durable Medical Equipment Provider 07/05/19 Shaquille Finley MD [address] [place], [place] [address] Consulting Anesthesiology 01/20/20 Soheila Bhakta MD [address] [place] [address] Consulting Dermatology 03/10/20 [facility] 06/26/16 Maureen Mccarty 07/12/16 [facility] 10/28/16 [facility] Physician Cardiology 11/14/17 [facility] 11/14/17 Yelena 03/03/19 Lou Carlos 01/20/19 Keara Ayers 02/20/17 Sales Office Coordinator Relationship Specialty Start Date End Date Nanda Oliveira MD [address] [place], [place] [address] PCP - General Family Medicine 06/24/16 [place] [address] [place] [address] Pain Management 11/14/17 Bart Blas MD [address] [address] Physician Cardiology 01/14/19 (Hist), [facility] [address] [address] Durable Medical Equipment Provider 07/05/19 Shaquille Finley MD [address] [place] [address] Consulting Anesthesiology 01/20/20 Soheila Bhakta MD [address] [place] [address] Consulting Dermatology 03/10/20 [facility] 06/26/16 Maureen Mccarty 07/12/16 [facility] 10/28/16 [facility] Physician Cardiology 11/14/17 [facility] 11/14/17 Yelena 03/03/19 Lou Carlos 01/20/19 Marylisa Ayers 02/20/17 Sales Office Coordinator Relationship Specialty Start Date End Date Nanda Oliveira MD [address] [place], [place] 6065[address] PCP - General Family Medicine 06/24/16 Daniel Ford MD [address] [address] Pain Management 11/14/17 Bart Blas MD [address] 7815[address] Physician Cardiology 01/14/19 (Hist), [facility] [address] [address] Durable Medical Equipment Provider 07/05/19 Shaquille Finley MD [address] [place] [address] Consulting Anesthesiology 01/20/20 Soheial Bhakta MD [address] [place] [address] Consulting Dermatology 03/10/20 [facility] 06/26/16 Maureen Mccarty 07/12/16 [facility] 10/28/16 [facility] Physician Cardiology 11/14/17 [facility] 11/14/17 Yelean 03/03/19 Lou Gonzalez 01/20/19 Keara Ayers 02/20/17 Team Status: Active Member Role Status Dates Dr. Bhupendra Oliveira MD Primary Care Provider Acti ve Dr. Tarun Kennedy MD Attending Provider Activ e Team Status: Inactive Member Role Status Dates Dr. Bhupendra Oliveira MD Primary Care Provider Acti ve Jim Huddleston MD Attending Provider, Emergency Provid er Active Team Status: Inactive Member Role Status Dates Dr. Bhupendra Oliveira MD Primary Care Provider Acti ve Uma Vela PA, PA Attending Provider, Referr ing Provider Active Team Status: Active Member Role Status Dates Dr. Bhupendra Oliveira MD Primary Care Provider Acti ve Dr. Eleazar rBooks MD Emergency Provider Active Dr. Yvon Wilson DO Admit Provider, Attending Pr ovider Active Sales Office Coordinator Relationship Specialty Start Date End Date Daniel Ford MD [address] [address] Pain Management 11/14/17 Bart Blas MD [address] [place], [place] [address] Physician Cardiology 01/14/19 (Hist), [facility] [address] [place] [address] Durable Medical Equipment Provider 07/05/19 Shaquille Finley MD [address] [place] [address] [phone] Consulting Anesthesiology 01/20/20 Soheila Bhakta MD [address] [place] [address] Consulting Dermatology 03/10/20 [facility] 06/26/16 Maureen Mccarty 07/12/16 [facility] 10/28/16 [facility] Physician Cardiology 11/14/17 [facility] 11/14/17 Yelena 03/03/19 Lou Gonzalez 01/20/19 Keara Ayers 02/20/17 Sales Office Coordinator Relationship Specialty Start Date End Date Daniel Ford MD [address] [facility] [address] [address] [place] [address] Pain Management 11/14/17 Bart Blas MD [address] [place] [address] Physician Cardiology 01/14/19 (Hist), [facility] [address] [address] Durable Medical Equipment Provider 07/05/19 Shaquille Finley MD [address] [place] [address] Consulting Anesthesiology 01/20/20 Soheila Bhakta MD [address] [place] [address] Consulting Dermatology 03/10/20 [facility] 06/26/16 Maureen Mccarty 07/12/16 [facility] 10/28/16 [facility] Physician Cardiology 11/14/17 [facility] 11/14/17 [facility] 03/03/19 Lou Gonzalez 01/20/19 Keara Ayers 02/20/17 Team Status: Active Member Role Status Dates Dr. Bhupendra Oliveira MD Primary Care Provider Acti ve Dr. Eleazar Brooks MD Emergency Provider Active Dr. Yvon Wilson , DO Admit Provider, Other Provid er Active Dr. Yvon Hogan MD Attending Provider, Other Provid er Active Team Status: Active Member Role Status Dates Dr. Bhupendra Oliveira MD Primary Care Provider Acti ve Dr. Eleazar Brooks MD Emergency Provider Active Dr. Yvon Wilson , DO Admit Provider, Other Provid er Active Dr. Yvon Hogan MD Other Provider Active Dr. Jeff Lewis DO Attending Provider Active Dr. Reyna Champagne MD Referring Provider Active Team Status: Active Member Role Status Dates Dr. Bhupendra Oliveira MD Primary Care Provider Acti ve Dr. Eleazar Brooks MD Emergency Provider Active Dr. Yvon Wilson , DO Admit Provider, Other Provid er Active Dr. Yvon Hogan MD Attending Provider, Other Provid er Active Dr. Syed Montanez MD Other Provider Active Team Status: Active Member Role Status Dates Dr. Bhupendra Oliveira MD Primary Care Provider Acti ve Dr. Jeff Lewis DO Attending Provider Active Dr. Reyna Champagne MD Referring Provider Active Team Status: Active Member Role Status Dates Dr. Bhupendra Oliveira MD Primary Care Provider Acti ve Dr. Eleazar Brooks MD Emergency Provider Active Dr. Yvon Wilson , Admit Provider, Other Provid er Active Dr. Yvon Hogan MD Other Provider Active Dr. Syed Montanez MD Other Provider Active Dr. Jeff Lewis DO Attending Provider Active Dr. Reyna Champagne MD Referring Provider Active Team Status: Active Member Role Status Dates Dr. Bhupendra Oliveira MD Primary Care Provider Acti ve Dr. Eleazar Brooks MD Emergency Provider Active Dr. Yvon Wilson DO Admit Provider, Other Provid er Active Dr. Syed Montanez MD Other Provider Active Dr. Reyna Champagne MD Attending Provider, Other Provid er Active Dr. Yvon Hogan MD Other Provider Active Team Status: Active Member Role Status Dates Dr. Bhupendra Oliveira MD Primary Care Provider Acti ve Dr. Eleazar Brooks MD Emergency Provider Active Dr. Yvon Wilson DO Admit Provider, Other Provid er Active Dr. Syed Montanez MD Other Provider Active Dr. Reyna Champagne MD Referring Provider, Other Provid er Active Dr. Yvon Hogan MD Other Provider Active Dr. Jeff Lewis DO Attending Provider Active Team Status: Active Member Role Status Dates Dr. Bhupendra Oliveira MD Primary Care Provider Acti ve Dr. Eleazar Brooks MD Emergency Provider Active Dr. Yvon Wilson DO Admit Provider, Other Provid er Active Dr. Syed Montanez MD Other Provider Active Dr. Reyna Champagne MD Attending Provider, Other Provid er Active Dr. Yvon Hogan MD Other Provider Active Dr. James Cohn DO Active Team Status: Active Member Role Status Dates Dr. Bhupendra Oliveira MD Primary Care Provider Acti ve Dr. Bart Blas MD Attending Provider Active Dr. Yvon Hogan MD Referring Provider Active Team Status: Inactive Member Role Status Dates Dr. Bhupendra Oliveira MD Primary Care Provider Acti ve Dr. Eleazar Brooks MD Emergency Provider Active Dr. Yvon Wilson DO Admit Provider, Other Provid er Active Dr. Syed Montanez MD Other Provider Active Dr. Reyna Champagne MD Attending Provider Active Dr. Yvon Hogan MD Other Provider Active Team Status: Inactive Member Role Status Dates Dr. Bhupendra Oliveira MD Primary Care Provider Acti ve Dr. Dylon Murrieta MD Attending Provider, Referring Pr ovider Active Team Status: Inactive Member Role Status Dates Dr. Bhupendra Oliveira MD Primary Care Provider Acti ve Dr. Dylon Murrieta MD Attending Provider Active Team Status: Active Member Role Status Dates Dr. Bhupendra Oliveira MD Family Provider Active Dr. Dylon Murrieta MD Primary Care Provider Active Team Status: Inactive Member Role Status Dates Dr. Jeff Lewis DO Attending Provider Active Dr. Dylon Murrieta MD Primary Care Provider, Referring Provider Active Team Status: Inactive Member Role Status Dates Dr. Dylon Murrieta MD Primary Care Provi zohreh, Attending Provider, Referring Provider Active Team Status: Active Member Role Status Dates Dr. Dylon Murrieta MD Primary Care Provi zohreh, Attending Provider, Referring Provider Active Team Status: Active Member Role Status Dates Dr. Dylon Murrieta MD Primary Care Provider, Referring Provider Active Dr. Syed Jeronimo MD Attending Provider Active Team Status: Inactive Member Role Status Dates Dr. Dylon Murrieta MD Primary Care Provider Active Dr. John Ford MD Attending Provider, Referring Provider Active Team Status: Active Member Role Status Dates Dr. Dylon Murrieta MD Primary Care Provider, Referring Provider Active Dr. Jeff Lewis DO Attending Provider, Other Prov ider Active Team Status: Inactive Member Role Status Dates Dr. Dylon Murrieta MD Primary Care Provider, Referring Provider Active Dr. Jeff Lewis DO Attending Provider Active Sales Office Coordinator Relationship Specialty [place] [address] [place] [address] [place] [address] Pain Management 11/14/17 Bart Blas MD [address] [facility] [address] Physician Cardiology 01/14/19 (Hist), [facility] [address] [facility] [address] [address] Durable Medical Equipment Provider 07/05/19 Shaquille Finley MD [address] [place] [address] Consulting Anesthesiology 01/20/20 Soheila Bhakta MD [address] [place] [address] Consulting Dermatology 03/10/20 [facility] 06/26/16 Maureen Mccarty 07/12/16 [facility] 10/28/16 [facility] Physician Cardiology 11/14/17 [facility] 11/14/17 Yelena 03/03/19 Lou Gonzalez 01/20/19 Keara Ayers 02/20/17 Team Status: Inactive Member Role Status Dates Dr. Dylon Murrieta MD Primary Care Provider, Attending Provider Active Sales Office Coordinator Relationship Specialty Start Date End Date Daniel Ford MD [address] [place] [address] [address] [place] [address] Pain Management 11/14/17 Bart Blas MD [address] [place] [address] Physician Cardiology 01/14/19 (Hist), [facility] [address] [place] [address] Durable Medical Equipment Provider 07/05/19 Shaquille Finley MD [address] [place] [address] Consulting Anesthesiology 01/20/20 Soheila Bhakta MD [address] [place] [address] Consulting Dermatology 03/10/20 [facility] 06/26/16 Maureen Mccarty 07/12/16 [facility] 10/28/16 [facility] Physician Cardiology 11/14/17 [facility] 11/14/17 Yelena 03/03/19 Loudeidra Gonzalez 01/20/19 Marylisa Ayers 02/20/17 Sales Office Coordinator Relationship Specialty Start Date End Date Daniel Ford MD [address] [facility] [address] [address] [place] [address] Pain Management 11/14/17 Bart Blas MD [address] [place] [address] Physician Cardiology 01/14/19 (Hist), [facility] [address] [facility] [address] [place] [address] Durable Medical Equipment Provider 07/05/19 Shaquille Finley MD [address] [place] [address] Consulting Anesthesiology 01/20/20 Soheila Bhakta MD [address] [place] [address] Consulting Dermatology 03/10/20 [facility] 06/26/16 Maureen Mccarty 07/12/16 [facility] 10/28/16 [facility] Physician Cardiology 11/14/17 [facility] 11/14/17 [facility] 03/03/19 Lou Gonzalez 01/20/19 Keara Ayers 02/20/17 Sales Office Coordinator Relationship Specialty Start Date End Date Daniel Ford MD [address] [facility] [address] [place] [address] Pain Management 11/14/17 Bart Blas MD [address] [facility] [facility] [address] [place] [address] Physician Cardiology 01/14/19 (Hist), [facility] [address] [address] Durable Medical Equipment Provider 07/05/19 Shaquille Finley MD [address] [place] [address] Consulting Anesthesiology 01/20/20 Soheila Bhakta MD [address] [place] [address] Consulting Dermatology 03/10/20 [facility] 06/26/16 Maureen Mccarty 07/12/16 [facility] 10/28/16 [facility] Physician Cardiology 11/14/17 [facility] 11/14/17 [facility] 03/03/19 Lou Gonzalez 01/20/19 Keara Ayers 02/20/17 Sales Office Coordinator Relationship Specialty Start Date End Date Nanda Oliveira MD [address] [place], [place] [address] PCP - General Family Medicine 06/24/16 08/28/23 Daniel Ford MD [address] [facility] [address] [address] Pain Management 11/14/17 aBrt Blas MD [address] [facility] [address] [address] Physician Cardiology 01/14/19 (Hist), [facility] [address] [address] Durable Medical Equipment Provider 07/05/19 Shaquille Finley MD [address] [place] [address] Consulting Anesthesiology 01/20/20 Soheila Bhakta MD [address] [place], [place] [id number] Consulting Dermatology 03/10/20 [facility] 06/26/16 Maureen Mccarty 07/12/16 [facility] 10/28/16 [facility] Physician Cardiology 11/14/17 [facility] 11/14/17 Yelena 03/03/19 Lou Gonzalez 01/20/19 Keara Ayers 02/20/17 Sales Office Coordinator Relationship Specialty Start Date End Date Nanda Oliveira MD [address] [place] [address] PCP - General Family Medicine 06/24/16 08/28/23 Daniel Ford MD [address] [address] Pain Management 11/14/17 Bart Blas MD [address] [address] Physician Cardiology 01/14/19 (Hist), [facility] [address] [address] Durable Medical Equipment Provider 07/05/19 Shaquille Finley MD [address] [place] [address] Consulting Anesthesiology 01/20/20 Soheila Bhakta MD [address] [place] [address] Consulting Dermatology 03/10/20 [facility] 06/26/16 Maureen Mccarty 07/12/16 [facility] 10/28/16 [facility] Physician Cardiology 11/14/17 [facility] 11/14/17 Yelena 03/03/19 Lou Gonzalez 01/20/19 Keara Ayers 02/20/17 Sales Office Coordinator Relationship Specialty Start Date End Date Nanda Oliveira MD [address] [place] [address] PCP - General Family Medicine 06/24/16 08/28/23 Daniel Ford MD [address] [place] [address] Pain Management 11/14/17 Bart Blas MD [address] [place] [address] Physician Cardiology 01/14/19 (Hist), [facility] [address] [facility] [address] [address] Durable Medical Equipment Provider 07/05/19 Shaquille Finley MD [address] [place] [address] Consulting Anesthesiology 01/20/20 Soheila Bhakta MD [address] [place] [address] Consulting Dermatology 03/10/20 [facility] 06/26/16 Maureen Mccarty 07/12/16 [facility] 10/28/16 [facility] Physician Cardiology 11/14/17 [facility] 11/14/17 Yelena 03/03/19 Lou Gonzalez 01/20/19 Keara Ayers 02/20/17 Sales Office Coordinator Relationship Specialty Start Date End Date Nanda Oliveira MD [address] [place] [address] PCP - General Family Medicine 06/24/16 08/28/23 Daniel Ford MD [address] [place] [address] Pain Management 11/14/17 Bart Blas MD [address] [place] [address] Physician Cardiology 01/14/19 (Hist), [facility] [address] [place] [address] Durable Medical Equipment Provider 07/05/19 Shaquille Finley MD [address] [place] [address] Consulting Anesthesiology 01/20/20 Soheila Bhakta MD [address] [place], [place] [id number] Consulting Dermatology 03/10/20 [facility] 06/26/16 Maureen Mccarty 07/12/16 [facility] 10/28/16 [facility] Physician Cardiology 11/14/17 [facility] 11/14/17 Yelena 03/03/19 Lou Gonzalez 01/20/19 Keara Ayers 02/20/17 Sales Office Coordinator Relationship Specialty Start Date End Date Nanda Oliveira MD [address] [place] [address] PCP - General Family Medicine 06/24/16 08/28/23 Daniel Ford MD [address] [place] [address] Pain Management 11/14/17 Bart Blas MD [address] [place] [address] Physician Cardiology 01/14/19 (Hist), [facility] [address] [facility] [address] [address] Durable Medical Equipment Provider 07/05/19 Shaquille Finley MD [address] [place] [address] Consulting Anesthesiology 01/20/20 Soheila Bhakta MD [address] [place], [place] [id number] Consulting Dermatology 03/10/20 [facility] 06/26/16 Maureen Mccarty 07/12/16 [employer] 10/28/16 [facility] Physician Cardiology 11/14/17 [facility] 11/14/17 Yelena 03/03/19 Lou Gonzalez 01/20/19 Keara Ayers 02/20/17 Team Status: Inactive Member Role Status Dates Dr. Bhupendra Oliveira MD Primary Care Provider Acti ve Jim Huddleston MD Emergency Provider Active Team Status: Active Member Role Status Dates Dr. Bhupendra Oliveira MD Primary Care Provider Acti ve Dr. Eleazar Brooks MD Emergency Provider Active Dr. Yvon Wilson DO Admit Provider, Other Provid er Active Dr. Yvon Hogan MD Other Provider Active Dr. Jeff Lewis DO Attending Provider Active Team Status: Active Member Role Status Dates Dr. Bhupendra Oliveira MD Primary Care Provider Acti ve Dr. Jeff Lewis DO Attending Provider Active Team Status: Active Member Role Status Dates Dr. Bhupendra Oliveira MD Primary Care Provider Acti ve Dr. Eleazar Brooks MD Emergency Provider Active Dr. Yvon Wilson DO Admit Provider, Other Provid er Active Dr. Yvon Hogan MD Other Provider Active Dr. Syed Montanez MD Other Provider Active Dr. Jeff Lewis DO Attending Provider Active Team Status: Active Member Role Status Dates Dr. Bhupendra Oliveira MD Primary Care Provider Acti ve Dr. Eleazar Brooks MD Emergency Provider Active Dr. Yvon Wilson DO Admit Provider, Other Provid er Active Dr. Syed Montanez MD Other Provider Active Dr. Reyna hCampagne MD Other Provider Active Dr. Yvon Hogan MD Other Provider Active Dr. Jeff Lewis DO Attending Provider Active Team Status: Active Member Role Status Dates Dr. Bhupendra Oliveira MD Primary Care Provider Acti ve Dr. Eleazar Brooks MD Emergency Provider Active Dr. Yvon Wilson DO Admit Provider, Other Provid er Active Dr. Syed Montanez MD Other Provider Active Dr. Reyna Champagne MD Other Provider Active Dr. Yvon Hogan MD Other Provider Active Dr. James Cohn DO Attending Provider Active Team Status: Active Member Role Status Dates Dr. Dylon Murrieta MD Primary Care Provider Active Team Status: Inactive Member Role Status Dates Dr. Dylon Murrieta MD Primary Care Provider Active Start: October 14, 2024 End: October 14, 2024 Dr. Dylon Murrieta MD Attending Provider Active Start: October 14, 2024 End: October 14, 2024 Team Status: Inactive Member Role Status Dates Dr. Dylon Murrieta MD Primary Care Provider Active Start: October 27, 2024 End: October 27, 2024 Dr. Dylon Murrieta MD Referring Provider Active Start: October 27, 2024 End: October 27, 2024 IZABELA Miller Attending Provider Active Start: October 27, 2024 End: October 27, 2024 Team Status: Inactive Member Role Status Dates Dr. Bhupendra Oliveira MD Referring Provider Active Start: November 04, 2024 End: November 04, 2024 Dr. Bart Blas MD Attending Provider Active S tart: November 04, 2024 End: November 04, 2024 Dr. Dylon Murrieta MD Primary Care Provider Active Start: November 04, 2024 End: November 04, 2024 Team Status: Inactive Member Role Status Dates Dr. Dylon Murrieta MD Primary Care Provider Active Start: December 04, 2024 End: December 05, 2024 Dr. Avinash Hodge MD Emergency Provider Active S tart: December 04, 2024 End: December 05, 2024 Team Status: Active Member Role/Relationship Status Dates Dr. Dylon Murrieta MD Primary Care Provider Active Team Status: Inactive Member Role/Relationship Status Dates Dr. Dylon Murrieta MD Primary Care Provider Active Start: December 04, 2024 End: December 05, 2024 Dr. Avinash Hodge MD Attending Provider Active S tart: December 04, 2024 End: December 05, 2024 Dr. Avinash Hodge MD Emergency Provider Active S tart: December 04, 2024 End: December 05, 2024 Team Status: Inactive Member Role/Relationship Status Dates Dr. Dylon Murrieta MD Primary Care Provider Active Start: January 03, 2025 End: January 03, 2025 Dr. Dylon Murrieta MD Referring Provider Active Start: January 03, 2025 End: January 03, 2025 IZABELA Miller Attending Provider Active Start: January 03, 2025 End: January 03, 2025 Team Status: Inactive Member Role/Relationship Status Dates Dr. Dylon Murrieta MD Primary Care Provider Active Start: March 23, 2025 End: March 23, 2025 IZABELA Miller Attending Provider Active Start: March 23, 2025 End: March 23, 2025 Lizette Wyatt , [employer] Referring Provider Active Start: March 23, 2025 End: March 23, 2025 Team Status: Inactive Member Role/Relationship Status Dates Dr. Dylon Murrieta MD Primary Care Provider Active Start: January 03, 2025 End: January 03, 2025 Dr. Dylon Murrieta MD Referring Provider Active Start: January 03, 2025 End: January 03, 2025 Lizette Schneider [employer] Attending Provider Active Start: January 03, 2025 End: January 03, 2025 Team Status: Inactive Member Role/Relationship Status Dates Dr. Dylon Murrieta MD Primary Care Provider Active Start: March 23, 2025 End: March 23, 2025 Lizette Schneider [employer] Attending Provider Active Start: March 23, 2025 End: March 23, 2025 Lizette Schneider [employer] Referring Provider Active Start: March 23, 2025 End: March 23, 2025 Team Status: Inactive Member Role/Relationship Status Dates Dr. Dylon Murrieta MD Primary Care Provider Active Start: April 13, 2025 End: April 13, 2025 Dr. Dylon Murrieta MD Attending Provider Active Start: April 13, 2025 End: April 13, 2025 Team Status: Active Member Role/Relationship Status Dates Dr. Dylon Murrieta MD Primary care physician Active Team Status: Inactive Member Role/Relationship Status Dates Dr. Dylon Murrieta MD Primary care physician Active Start: March 23, 2025 End: March 23, 2025 Lizette Schneider NP-C Attending physician Active Start: March 23, 2025 End: March 23, 2025 Lizette Schneider [employer] Referring Provider Active Start: March 23, 2025 End: March 23, 2025 Team Status: Inactive Member Role/Relationship Status Dates Dr. Dylon Murrieta MD Primary care physician Active Start: April 13, 2025 End: April 13, 2025 Dr. Dylon Murrieta MD Attending physician Active Start: April 13, 2025 End: April 13, 2025 Team Status: Inactive Member Role/Relationship Status Dates Dr. Dylon Murrieta MD Primary care physician Active Start: June 19, 2025 End: June 19, 2025 Dr. Avinash Hodge MD Emergency [facility] t Physician Active Start: June 19, 2025 End: June 19, 2025 Care Team (unrecognized sect ion and content) Care Team Personnel Name: NANDA OLIVEIRA MD Member Role: Primary Care Physician Address: Address: [address] [place] [address]- Care Team Related Persons Name: ERFA MAE Name: MAE KRAUS Name: MAE KRAUS Name: ISAC DIGGS FOR RECORDS PERTAINING TO PATIENTS WHO ARE OR HAVE BEEN ENROLLED IN A CHEMICAL DEPENDENCY/SUBSTANCEABUSE PROGRAM, SOME INFORMATION MAY BE OMITTED. This clinical summary was aggregated from multiple sources. Caution should be exercised in using it in the provision of clinical care. This summary normalizes information from multiple sources, and as a consequence, information in this document may materially change the coding, format and clinical context of patient data. In addition, data may be omitted in some cases. CLINICAL DECISIONS SHOULD BE BASED ON THE PRIMARY CLINICAL RECORDS. [facility]. provides no warranty or guarantee of the accuracy or completeness of information in this document.
--- NOTE | 2025-07-31 04:03 | EDS_ITS ---
HPI History of Present Illness Chief Complaint: Chest Pain Narrative Narrative: Patient was seen and examined after presenting to ED for epigastric pain patient is on home oxygen however she took it off prior to EMS arriving because she wanted to smoke a cigarette states she does have a history of atrial fibrillation. [facility] Medical History ESBL (extended spectrum beta-lactamase) producing bacteria infection Community acquired pneumonia Pneumonia COPD exacerbation Open wound Chronic kidney disease (CKD) History of echocardiogram History of atrial fibrillation Vertigo Wears hearing aid Wears dentures Wears glasses Post-menopausal Cancer Anxiety Tinnitus Thyroid disease Insulin dependent diabetes mellitus Diabetes Uses wheelchair Walker as ambulation aid Arthritis History of renal disease Anemia High cholesterol Pulmonary embolism DVT (deep venous thrombosis) Excessive bleeding Back pain Injury of back Migraine headache Difficulty swallowing History of diverticulitis Gastroparesis History of IBS Gastric reflux Former smoker Sleep apnea On home oxygen therapy Diabetic neuropathy History of edema History of Holter monitoring History of stress test History of CHF (congestive heart failure) History of heart attack Cardiology follow-up encounter Paroxysmal atrial fibrillation Chronic kidney disease (CKD) stage G3b/A1, moderately decreased glomerular filtration rate (GFR) between 30-44 mL/min/1.73 square meter and albuminuria creatinine ratio less than 30 mg/g Anxiety Closed intertrochanteric fracture of left femur Fall at home Broken rib Pulmonary hypertension Gastroparesis Presence of stent in coronary artery (~12/07/03) Mixed hyperlipidemia History of cervical cancer DDD (degenerative disc disease) Lung nodule RLS (restless legs syndrome) Pulmonary embolism History of DVT (deep vein thrombosis) Atherosclerotic heart disease of [place] coronary artery without angina pectoris Essential hypertension Paroxysmal A-fib Diabetes mellitus type 2 in obese PARESH (obstructive sleep apnea) Chronic respiratory insufficiency COPD (chronic obstructive pulmonary disease) GERD (gastroesophageal reflux disease) Hypothyroidism Home Medications ?Medication ?Instructions ?Recorded ?Last Taken ?Type atorvastatin 40 mg tablet 40 mg PO QHS CHOLESTEROL LOW ERING 02/03/18 03/01/24 History ascorbic acid (vitamin C) 500 mg 500 mg PO DAILY@1700 supplement 05/17/18 03/02/24 History tablet buspirone 10 mg tablet 10 mg PO BID depression 05/2403/02/24 History duloxetine 60 mg capsule,delayed 60 mg PO DAILY MENTAL HEALTH 06/12/22 03/02/24 History release albuterol sulfate 90 mcg/actuation 2 puff inhalation P RN PRN COPD 12/12/22 11/26/23 History aerosol inhaler buspirone 10 mg tablet 15 mg PO QHS 06/03/23 History insulin lispro 100 unit/mL 14 unit (0.14 mL) subcut BR EAKFAST 08/20/23 03/02/24 Rx subcutaneous pen DIABETES #15 mL insulin lispro 100 unit/mL 14 unit (0.14 mL) subcut AAYUSH [facility] 08/20/23 03/02/24 Rx subcutaneous pen DIABETES #15 mL insulin lispro 100 unit/mL 24 unit (0.24 mL) subcut DI NNER 08/20/23 03/01/24 Rx subcutaneous pen DIABETES #15 mL insulin glargine 100 unit/mL (3 58 - 60 unit subcut BI D DM 11/25/23 03/02/24 History mL) subcutaneous pen (Lantus Solostar U-100 Insulin) omeprazole 40 mg capsule,delayed 40 mg PO DAILY 03/02/24 History release levothyroxine 88 mcg tablet 88 mcg PO DAILY 01/19/24 0 03/02/24 History (Euthyrox) metoprolol tartrate 50 mg tablet 50 mg PO BID 03/02/24 03/02/24 History amlodipine 5 mg tablet 5 mg PO DAILY for blood pres sure 08/31/24 Unknown Rx #30 TABLETS linaclotide 145 mcg capsule 145 mcg PO QAM #90 caps Unknown Rx (Linzess) nitroglycerin 0.4 mg sublingual 0.4 mg sublingual Q5-1 5M PRN chest 01/12/25 Unknown Rx tablet pain #25 tabs apixaban 5 mg tablet (Eliquis) 5 mg PO BID #60 tabs Unknown Rx amiodarone 200 mg tablet 200 mg PO DAILY 06/19/25 Unk nown History fluticasone fur. 100 mcg-umeclid 1 ea inhalation DAILY 06/19/25 Unknown History 62.5 mcg-vilant 25 mcg inhalat.powder (Trelegy Ellipta) cefdinir 300 mg capsule 300 mg PO BID 10 days #20 ca ps 07/31/25 Unknown Rx Allergy/AdvReac Type Severity Reaction Status Date / Time metoclopramide (From Reglan) Allergy Intermediate Itching Verified 06/19/25 13:40 ciprofloxacin (From Cipro) Allergy Hives Verified 06/19/25 13:40 latex Allergy matos me Verified 06/19/25 13:40 niacin (From Niaspan Allergy Hives Verified 06/19/25 13:40 Extended-Release) ranolazine (From Ranexa) Allergy Itching Verified 06/19/25 13:40 orphenadrine AdvReac Mild PT UNABLE Verified 06/19/25 13:40 TO RESPOND-NEEDS F/U adhesive tape AdvReac Other Verified 06/19/25 13:40 orphenadrine citrate (From AdvReac groggy Verified 06/19/25 13:40 Norgesic) Family History Mother CAD (coronary artery disease) Father CAD (coronary artery disease) Brother CAD (coronary artery disease) Asthma Sister Hypertension Sister Diabetes Sister Heart disease Surgical History History of hip surgery History of coronary artery stent placement (06/04/23) History of cardiac catheterization Hx of surgical procedure Presence of coronary angioplasty implant and graft (~12/07/03) History of left heart catheterization (LHC) (~09/28/19) History of surgery on wrist History of tubal ligation History of nasal surgery History of knee surgery History of hernia repair History of cholecystectomy History of total abdominal hysterectomy Social History Smoking Status: Light Smoker (<10/day) quit status: has quit before alcohol intake: never substance use type: does not use caffeine: Yes Type: coffee Number of servings: 1 ROS ROS ED ROS Narrative Pertinent Positives: Epigastric pain nausea anticoagulated on Eliquis history of PE and DVT history of heart failure Pertinent Negatives: Fevers chills vomiting diarrhea chest pain or pressure The remainder of review of systems negative unless otherwise stated in the HPI above. Systems reviewed including constitutional, psychiatric, cardiovascular, respiratory, integument, HENT, gastrointestinal. EXAM Physical Exam Narrative Exam Narrative: Afebrile hemodynamically stable does not appear toxic or in distress normal heart lung sounds abdomen she is tender in the epigastric region she says that this is the exact pain that she was having. Intact and equal MSPs in her extre mities no lower extremity calf tenderness abdomen without a palpable pulsatile mass. Const Vital Signs: 07/31/25 02:50 07/31/25 03:22 07/31/25 03:31 Temperature 98.1 F Temperature Source Oral Pulse Rate 70 Respiratory Rate 16 Blood Pressure 129/88 H Blood Pressure Mean 101 Pulse Ox 96 97 Oxygen Delivery Method Room Air Room Air Nasal Cannula Oxygen Flow Rate (L/min) 3 07/31/25 05:00 07/31/25 07:00 Temperature Temperature Source Pulse Rate 84 82 Respiratory Rate 18 Blood Pressure 122/68 H 122/81 H Blood Pressure Mean 86 94 Pulse Ox 98 98 Oxygen Delivery Method Nasal Cannula Nasal Cannula Oxygen Flow Rate (L/min) 3 3 MDM MDM MDM Narrative Medical decision making narrative: Nursing notes, triage notes, available previous documentation, and vital signs were reviewed. Any discrepancies noted were addressed. Differential Diagnoses: Be an atypical ACS presentation pancreatitis diverticular disease lower suspicion for aortic etiology or PE Interventions: Antibiotics Given: Ceftriaxone Labs Reviewed: No leukocytosis leukopenia anemia INR is 1.4 no significant electrolyte abnormality creatinine today is 1.2 with a creatinine clearance of 37 GFR is 45 glucose elevated 362 total bili minimally elevated at 1.5 with an AST of 53 alk phos of 111 initial troponin was 20 so just minimally elevated delta troponin pending proBNP is 1238 she does not appear to be grossly volume overloaded lipase is only 25 urine is nitrate positive however with 25 leukocyte esterase 4+ bacteria Hemoccult was negative patient is delta troponin came back at 19 and it is likely elevated just because of her ongoing process. Imaging Reviewed: Personally reviewed and interpreted by me: Chest x-ray I do not see any obvious pneumonia pneumothoraces or edema CT attempted to get a CT abdomen and pelvis on multiple occasions but the IVs kept blowing so we did it without contrast which shows bilateral simple kidney cysts with the largest being 1.7 cm in the upper pole of the right kidney there is no hydronephrosis no obstructive stones and there is however hyperdense fluid within the collecting system in which we could get an ultrasound for EKG: Motion artifact but rate of [address] segment elevation. EKG interpretation is noted and agreed to in the EMR. The interpretation of this patient's EKG contributed directly to the care and management of this patient. Previous Documentation Reviewed: None available or applicable at this time. ED Course: Patient presenting with more epigastric pain that ended up being more diffuse abdominal pain workup showed nitrate positive urine with 25 leukocyte esterase and 4+ bacteria she was given ceftriaxone here patient CT showed hyperdense fluid in the collecting system which they recommended a renal ultrasound so she is pending a renal ultrasound this has been endorsed to oncoming physician barring any significant changes to the patient's status or further abnormal findings patient will be discharged to be treated as pyelonephritis. This note was made utilizing voice recognition software. All attempts were made to correct spelling or other errors prior to note completion. However, due to the fast-paced nature of emergency medicine, some errors may still be present. Lab Data Labs: Laboratory Results - last 24 hr 07/31/25 07/31/25 07/31/25 04:04 04:26 05:02 WBC 9.2 RBC 4.76 Hgb 14.1 Hct 44.3 MCV 93.1 MCH 29.6 MCHC 31.8 L RDW Std Deviation 49.6 H RDW Coeff of Aubrey 14.6 Plt Count 172 MPV 11.1 Immature Gran % (Auto) 0.800 Neut % (Auto) 78.8 H Lymph % (Auto) 9.8 L [place] % (Auto) 7.3 Eos % (Auto) 3.0 Baso % (Auto) 0.3 Absolute Neuts (auto) 7.3 Absolute Lymphs (auto) 0.91 Nucleated RBC % 0 PT 17.1 H INR 1.4 APTT 31.3 Sodium 137 Potassium 5.0 Chloride 103 Carbon Dioxide 23.2 Anion Gap 11 BUN 18 Creatinine 1.27 H Estim Creat Clear Calc 37.01 L Est GFR (MDRD) Non-Af 45 L BUN/Creatinine Ratio 14.0 Glucose 362 H Calcium 9.3 Total Bilirubin 1.51 H AST 53 H ALT 19 Alkaline Phosphatase 111 H Troponin T High Sens 20 H D 19 H NT pro BNP II 1238 H Total Protein 7.3 Albumin 3.8 Globulin 3.5 Albumin/Globulin Ratio 1.1 Lipase 25 Urine Color Yellow Urine Clarity Clear Urine pH 7.0 Ur Specific [place] 1.010 Urine Protein Negative Urine Glucose (UA) 250 H Urine Ketones Negative Urine Occult Blood 10 H Urine Nitrite Positive H Urine Bilirubin Negative Urine Urobilinogen Normal Ur Leukocyte Esterase 25 H Urine RBC 0 SEEN Urine WBC 0-5 SEEN Ur Squamous Epith Cells 0 SEEN Urine Bacteria 4+ Urine Mucus 0 SEEN Radiography Diagnostic Testing: Clinical Impression(s) from Imaging Studies Abdomen/Pelvis CT 07/31/25 02:55 IMPRESSION: Bilateral simple kidney cysts with the largest measures 1.7 cm at the upper pole of the right kidney. No hydronephrosis. No obstructing ureteral stones or nephrolithiasis. However, hyperdense fluid within the collecting system. Further evaluation with ultrasound is recommended. Reading Location: [facility] Chest X-Ray 07/31/25 05:14 IMPRESSION: No evidence for acute abnormality. Reading [facility] Discharge Plan Triage Chief Complaint: Chest Pain ED Provider: Linda Talley Dx/Rx/DC Orders Clinical Impression: Epigastric abdominal pain, Abdominal pain, Acute pyelonephritis, Elevated troponin Instructions: ED Pyelonephritis, Female (Adult) Prescriptions: New cefdinir 300 mg capsule 300 mg PO BID 10 Days Qty: 20 0RF No Action buspirone 10 mg tablet 10 mg PO BID Patient Comments: PER PHARMACY PT TAKES 1 TAB (10 MG) IN THE MORNING AND AFTERNOON AND TAKES 1.5 TAB (15 MG) IN THE EVENING Rx Instructions: PER PHARMACY PT TAKES 1 TAB (10 MG) IN THE MORNING AND AFTERNOON AND TAKES 1.5 TAB (15 MG) IN THE EVENING Linzess 145 mcg capsule 145 mcg PO QAM Qty: 90 1RF Rx Instructions: take 30 minutes before breakfast every morning atorvastatin 40 MG tablet 40 mg PO QHS Patient Comments: cholesterol duloxetine 60 mg capsule,delayed release(DR/EC) 60 mg PO DAILY Patient Comments: mental health ascorbic acid (vitamin C) 500 MG tablet 500 mg PO DAILY@1700 Patient Comments: Supplement albuterol sulfate 90 mcg/actuation HFA aerosol inhaler 2 puff INHALATION PRN PRN (Reason: COPD) buspirone 10 mg tablet 15 mg PO QHS Patient Comments: PER PHARMACY PT TAKES 1 TAB (10 MG) IN THE MORNING AND AFTERNOON AND TAKES 1.5 TAB (15 MG) IN THE EVENING Rx Instructions: PER PHARMACY PT TAKES 1 TAB (10 MG) IN THE MORNING AND AFTERNOON AND TAKES 1.5 TAB (15 MG) IN THE EVENING insulin lispro 100 unit/mL insulin pen 14 unit SC LUNCH Qty: 15 0RF Rx Instructions: hold if glucose <100 insulin lispro 100 unit/mL insulin pen 14 unit SC BREAKFAST Qty: 15 0RF Rx Instructions: hold if glucose <100 insulin lispro 100 unit/mL insulin pen 24 unit SC DINNER Qty: 15 0RF Rx Instructions: hold if glucose <100 omeprazole 40 mg capsule,delayed release(DR/EC) 40 mg PO DAILY insulin glargine [Lantus Solostar U-100 Insulin] 100 unit/mL (3 mL) insulin pen 58 - 60 unit SC BID levothyroxine [Euthyrox] 88 mcg tablet 88 mcg PO DAILY metoprolol tartrate 50 mg tablet 50 mg PO BID amiodarone 200 mg tablet 200 mg PO DAILY Trelegy Ellipta 100-62.5-25 mcg blister with device 1 ea inhalation DAILY amlodipine 5 mg tablet 5 mg PO DAILY Qty: 30 11RF nitroglycerin 0.4 mg tablet, sublingual 0.4 mg sublingual Q5-15M PRN (Reason: chest pain) Qty: 25 3RF Eliquis 5 mg tablet 5 mg PO BID Qty: 60 11RF Primary Care Provider: Dylon Murrieta Chi Referrals: Dylon Murrieta Chi, MD [Primary Care Provider, Geriatrics] Activity Restrictions/Additional Instructions: You were diagnosed with a urine infection and you will be given antibiotics I want you to complete the antibiotics do not stop them even if you are feeling better. If you are feeling worse in any way do not hesitate to return otherwise follow-up with your primary care doctor Print Language: Luxembourgish
[2025-07-31 04:11] LABS: Hematocrit 44.3 % (37-47); Hemoglobin 14.1 g/dL (12.0-15.0); Immature Granulocytes Count 0.070 X10^3/uL (0.0-0.0); Mean Corp Hgb Conc 31.8 g/dL (32-36); Mean Corpuscular Volume 93.1 fL (81-99); Mean Platelet Vol. 11.1 fl (6.2-12.0); NRBC Flagged by Analyzer 0 % (0-5); Platelet Count 172 K/mm3 (150-450); RBC Distribution Width CV 14.6 % (11.6-14.6); RBC Distribution Width SD 49.6 fl (35.1-43.9); Red Blood Count 4.76 M/mm3 (4.2-5.4); White Blood Count 9.2 K/mm3 (4.4-11.0)
[2025-07-31 04:32] LABS: Prothrombin Time (Protime)PT. 17.1 SECONDS (11.7-14.9)
[2025-07-31 04:33] LABS: Partial Thromboplast Time 31.3 Seconds (24.1-36.2)
[2025-07-31 04:36] LABS: Mucous, Urine 0 SEEN /hpf (<or=2+); Red Blood Cells-Urine 0 SEEN /hpf (0-5); Squamous Epithelial Cells - UA 0 SEEN /hpf (5-10)
[2025-07-31 04:37] LABS: AST(SGOT) 53 U/L (<=31); Alanine Aminotransfer ALT/SGPT 19 U/L (<=34); Albumin, Serum 3.8 g/dL (3.4-4.8); Alkaline Phosphatase 111 U/L (35-104); Anion Gap 11 (5-15); BUN 18 mg/dL (4-19); BUN/Creat Ratio 14.0 RATIO (10-20); Calcium,Total 9.3 mg/dL (7.6-11.0); Carbon Dioxide 23.2 mmol/L (21.0-32.0); Chloride 103 mmol/L (98-108); Estimated Creatinine Clearance 37.01 ml/min (50-250); Globulin 3.5 g/dL (2.2-4.2); Glucose 362 mg/dL (70-99); Lipase 25 U/L (13-75); Potassium 5.0 mmol/L (3.3-5.1); Pro- Brain NATRIURETIC PEPTIDE 1238 pg/mL (<=900); Troponin T High Sensitivity 20 ng/L (<=14)
[2025-07-31 04:39] LABS: Color, Urine Yellow (Yellow); Glucose, Dipstick 250 mg/dl (Normal); Ketone-Dipstick Negative (Negative); Leukocyte Esterase-Dipstick 25 /ul (Negative); Nitrite-Dipstick Positive (Negative); Occult Blood-Urine 10 /ul (Negative); Protein-Dipstick Negative (Negative); Specific Gravity, Urine 1.010 (1.002-1.030); Urine Bilirubin Dipstick Negative (Negative)
[2025-07-31 05:00] VITALS: BP 122/68; PULSE 84; O2SAT 98
--- NOTE | 2025-07-31 05:14 | RAD_ITS ---
PROCEDURE: CHEST 1 VIEW (PORTABLE) 07/31/2025 REASON FOR EXAM: CHEST PAIN TECHNIQUE: Frontal view of the chest. COMPARISON: 12/04/2024. FINDINGS: The lungs are expanded. There is no demonstrated parenchymal abnormality. There is no demonstrated pleural abnormality. Enlarged cardiac silhouette. Normal mediastinum and tracie. Normal visualized pulmonary arteries. Atheromatous plaques of the visualized aortic arch and descending thoracic aorta. Diffuse spondylosis of the visualized thoracic spine. Normal visualized ribs, clavicles. Degenerative joint disease. There is no demonstrated abnormality of the visualized soft tissue structures of the upper abdomen. RAD/Chest 1 View (Portable) IMPRESSION: No evidence for acute abnormality. Reading Location: [facility]
--- NOTE | 2025-07-31 05:34 | NURSING ---
Iv infiltrated at CT scan. IV dc'ed. US IV being attempted.
[2025-07-31 07:00] VITALS: BP 122/81; PULSE 82; RESP 18; O2SAT 98
--- NOTE | 2025-07-31 07:18 | US_ITS ---
PROCEDURE: KIDNEY AND BLADDER 07/31/2025 REASON FOR EXAM: ABNORMAL FINDING ON CT TECHNIQUE: Procedure Code: USKI Modality: US Procedure: KIDNEY AND BLADDER COMPARISON: CT Abdomen and Pelvis w/o contrast, 07/31/2025 FINDINGS: RIGHT KIDNEY Size: Normal measuring 10.9 x 4.7 x 5.3 cm Echogenicity: Normal. Parenchymal thickness: Normal. Hydronephrosis: None. Calculi: None. Cysts: Two exophytic anechoic cysts, the largest is 1.6 x 1.4 x 1.5 cm. Solid masses: None. LEFT KIDNEY Size: Small in size measuring 8.8 x 5.4 x 4.3 cm. Echogenicity: Normal. Parenchymal thickness: Normal. Hydronephrosis: None. Calculi: None. Cysts: None. Solid masses: None. BLADDER: Normal. OTHER: None. US/Kidney and Bladder IMPRESSION: 1. Simple right renal cysts. 2. Small left kidney, can be seen with chronic kidney disease. Reading Location: [id number]
[2025-07-31 07:19] LABS: Troponin T High Sensitivity 19 ng/L (<=14)
[2025-07-31 09:00] VITALS: BP 120/78; PULSE 80; RESP 18; O2SAT 98
[2025-07-31] MEDS: Ceftriaxone 2 GM in 0.9% Normal Saline (50mL MB+) 50 ML IV (09:00)
[2025-07-31 10:00] VITALS: BP 110/80; PULSE 68; RESP 16; TEMP 36.6; O2SAT 98
== END 2025-07-31 10:05 | disposition home or self-care (01) ==
PROVIDERS: Emergency Provider Specialist/Technologist Athletic Trainer; PCP Family Medicine Geriatric Medicine; Visit Provider Specialist/Technologist Athletic Trainer
DX: N10 Acute pyelonephritis (principal); I13.0 Hypertensive heart and chronic kidney disease with heart failure and stage 1 through stage 4 chronic kidney disease, or unspecified chronic kidney disease; I50.9 Heart failure, unspecified; J44.9 Chronic obstructive pulmonary disease, unspecified; I48.0 Paroxysmal atrial fibrillation; Z79.4 Long term (current) use of insulin; E11.22 Type 2 diabetes mellitus with diabetic chronic kidney disease; N18.32 Chronic kidney disease, stage 3b; R79.89 Other specified abnormal findings of blood chemistry; I25.10 Atherosclerotic heart disease of native coronary artery without angina pectoris; F17.210 Nicotine dependence, cigarettes, uncomplicated; Z95.5 Presence of coronary angioplasty implant and graft; Z79.01 Long term (current) use of anticoagulants; Z79.51 Long term (current) use of inhaled steroids; Z79.899 Other long term (current) drug therapy
CPT/HCPCS: 71045; 74176; 76770; 80053; 81001; 82274; 83690; 83880; 84484; 85025; 85610; 85730; 93005; 96365; 99285; A4216; J0696

== ENCOUNTER → 2025-08-09 | Outpatient (CLI) | payer MEDICARE, MEDICAID, SELFPAY ==
--- NOTE | 2025-08-09 16:37 | RAD_ITS ---
PROCEDURE: WRIST MIN 3 VIEWS 08/09/2025 REASON FOR EXAM: RIGHT WRIST PAIN TECHNIQUE: Procedure Code: RADWR Modality: DX Procedure: WRIST MIN 3 VIEWS Laterality: Right wrist COMPARISON: None FINDINGS: Bones: No visible fracture. No suspicious bone lesion. Joints: Normal alignment. Soft tissues: Soft tissues are unremarkable. Other: RAD/Wrist min 3 Views IMPRESSION: NEGATIVE WRIST Reading Location: [id number]
--- NOTE | 2025-08-09 16:38 | RAD_ITS ---
PROCEDURE: FEMUR MIN 2 VIEWS 08/09/2025 REASON FOR EXAM: PAIN OF LEFT FEMUR TECHNIQUE: Procedure Code: RADFEM Modality: DX Procedure: FEMUR MIN 2 VIEWS Left femur four views COMPARISON: June 19, 2025 FINDINGS: There is kaylan and screw fixation of the left femur across the trochanteric fracture with no change in alignment or evidence of hardware failure. Severe osteoarthritis is noted at the knee. There is osteopenia. Surgical clips are noted throughout the pelvis. RAD/Femur Min 2 Views IMPRESSION: There is kaylan and screw fixation of the left femur across the trochanteric fract ure with no change in alignment or evidence of hardware failure. Reading Location: [id number]
[2025-08-09 16:58] LABS: Hematocrit 42.5 % (37-47); Hemoglobin 13.7 g/dL (12.0-15.0); Immature Granulocytes Count 0.080 X10^3/uL (0.0-0.0); Mean Corp Hgb Conc 32.2 g/dL (32-36); Mean Corpuscular Volume 94.0 fL (81-99); Mean Platelet Vol. 10.9 fl (6.2-12.0); NRBC Flagged by Analyzer 0 % (0-5); Platelet Count 205 K/mm3 (150-450); RBC Distribution Width CV 14.8 % (11.6-14.6); RBC Distribution Width SD 50.4 fl (35.1-43.9); Red Blood Count 4.52 M/mm3 (4.2-5.4); White Blood Count 7.7 K/mm3 (4.4-11.0)
[2025-08-09 17:25] LABS: Anion Gap 12 (5-15); BUN 26 mg/dL (4-19); BUN/Creat Ratio 17.3 RATIO (10-20); Calcium,Total 9.4 mg/dL (7.6-11.0); Carbon Dioxide 23.0 mmol/L (21.0-32.0); Chloride 104 mmol/L (98-108); Glucose 326 mg/dL (70-99); Potassium 3.9 mmol/L (3.3-5.1)
[2025-08-09 17:27] LABS: CRP < 3.00 mg/L (0.0-3.0); Uric Acid 4.8 mg/dL (2.6-6.0)
--- OUTSIDE RECORDS SUMMARY | 2025-08-09 19:39 | XMS RPT_ITS | CCD ---
Author Organization [facility] ion [facility] Care Team Providers Care Title I Paraprofessional Name Role Phone JOSE RAMON, DONAL Unavailable Unavailable BURSLEY, CHRISTOPHER Unavailable Unavailable BURSLEY, CHRISTOPHER Unavailable Unavailable JOSE RAMON, DONAL Unavailable Unavailable BURSLEY, CHRISTOPHER Unavailable Unavailable JOSE ARMON, DONAL Unavailable Unavailable JOSE RAMON, DONAL Unavailable Unavailable BURSARCELIA, CHRISTOPHER Unavailable Unavailable SHANE ALBRIGHTNETH E Unavailable Unavailable NANDA OLIVEIRA () Unavailable Unav ailable JOSE RAMON, DONAL E Unavailable Unavailable JOSE RAMON, DONAL E Unavailable Unavailable SELF, SELF Referring Unavailable NANDA OLIVEIRA Primary Care Unavailab Nanda Man MD Primary Care Provider Daniel Ford Unavailable Wan, Jumping Branch S Unavailable (Hist), [facility] Unavailable Unavailable Shaquille Finley Unavailable Soheila Bhakta MD Unavailable [phone] Unavailable Primary Care Provider UnavailNanda Patiño MD Primary Care Provider Daniel Ford Unavailable Wan, Bart S Unavailable (Hist), [facility] Unavailable Unavailable Shaquille Finley Unavailable Soheila Bhakta MD Unavailable Nanda Oliveira MD Primary Care Provider Daniel Ford Unavailable Wan, Bart S Unavailable Shaquille Finley Unavailable Soheila Bhakta MD Unavailable Dr. Bhupendra Oliveira Primary Care Provider Dr. Bhupendra Oliveira Referring Provider Mirian MORA, PA Uma Puente Attending Provider Dr. Bhupendra Oliveira Primary Care Provider Dr. Bhupendra Oliveira Referring Provider Mirian MORA, PA Uma Puente Attending Provider Dr. Kodi Agee Emergency Provider Dr. James Cohn Admit Provider Dr. James Cohn Attending Provider Dr. James Cohn Other Provider Dr. Arlyn Leslie Other Provider [phone] Roger Yang Attending Provider Dr. Roger Yang Other Provider Dr. Michelle Gregg Attending Provider Dr. Michelle Gregg Other Provider Nanda Oliveira MD Primary Care Provider Daniel Ford Unavailable Wan, Bart S Unavailable (Hist), [facility] Unavailable Unavailable Shaquille Finley Unavailable Soheila Bhakta MD Unavailable Dr. Syed Jeronimo Attending Provider Dr. Bhupendra Oliveira Primary Care Provider Dr. Jose Armando Ramsey Attending Provider Dr. James Cohn Referring Provider Dr. Arlyn Leslie Referring Provider Dr. Bhupendra Oliveira Referring Provider MORGAN Yeboah Attending Provider MORGAN Yeboah Other Provider BRIAN ABRAHAM, JAMIESON Primary Care Physician ANUJ ABRAHAM, DR ARLYN Golden Attending Fouzia Man MD, [facility] Care Jenna LESLIE MD, DR ARLYN Golden Attending Fouzia Man MD, [facility] Care Jenna LESLIE MD, DR ARLYN Golden Attending Fouzia Man MD, [facility] Care Jenna Oliveira, Dr. Huizar Primary Care Provider Dr. Syed Jeronimo Attending Provider Dr. Arlyn Leslie Referring Provider Dr. Bhupendra Oliveira Referring Provider MORGAN Yeboah Attending Provider MORGAN Yeboah Other Provider Dr. Jose Armando Ramsey Attending Provider Roof AUTOMATIC PROFILE SANDER OPERATOR, AUTOMATIC PROFILE SANDER OPERATOR-Johana Queen Attending Provider Dr. Arlyn Leslie Admit Provider Dr. Arlyn Leslie Other Provider JORI Montoya Other Provider Dr. Yared Fernández Attending Provider Dr. Yared Fernández Other Provider Dr. Bhupendra Oliveira Primary Care Provider Dr. Syed Jeronimo Attending Provider Dr. Arlyn Leslie Referring Provider Dr. Bhupendra Oliveira Referring Provider MORGAN Yeboah Attending Provider MORGAN Yeboah Other Provider Dr. Jose Armando Ramsey Attending Provider Abe MORRIS, AUTOMATIC PROFILE SANDER OPERATOR-C Zaid Queen Attending Provider Dr. Arlyn Leslie Admit Provider Dr. Arlyn Leslie Other Provider JORI Montoya Other Provider Dr. Yared Fernández Attending Provider Dr. Yared Fernández Other Provider Dr. Bhupendra Oliveira Primary Care Provider [phone] Dr. Arlyn Leslie Referring Provider Bart Blas Unavailable Daniel Ford MD Unavailable Dr. Bhupendra Oliveira Primary Care Provider Dr. Maria Fernanda Moss Emergency Provider Dr. Yared Fernández Admit Provider Dr. Yared Fernández Other Provider Dr. Bart Blas Attending Provider Dr. Bart Blas Other Provider TerDr. Yared forrester Attending Provider Gil MORRIS, AUTOMATIC PROFILE SANDER OPERATOR-C Akiko Attending Provider Dr. Roger Yang Attending Provider Dr. Roger Yang Other Provider Shaquille Finley MD Unavailable Bart Blas MD Unavailable Dr. Bhupendra Oliveira Primary Care Provider Dr. Maria Fernanda Moss Emergency Provider Dr. Yared Fernández Admit Provider Dr. Yared Fernández Other Provider Dr. Bart Blas Attending Provider Dr. Bart Blas Other Provider Dr. Yared Fernández Attending Provider Gil AUTOMATIC PROFILE SANDER OPERATOR, IZABELA Wharton Attending Provider Dr. Roger Yang Attending Provider Dr. Roger Yang Other Provider Dr. Tarun Kennedy Attending Provider Dr. Bhupendra Oliveira Referring Provider Mirian MORA, PA Uma Puente Attending Provider Dr. Bhupendra Oliveira Primary Care Provider Dr. Tarun Kennedy Attending Provider Dr. Eleazar Brooks Emergency Provider Dr. Yvon Wilson Admit Provider Unavailabl e Wilson, Dr. Sanz Other Provider Unavailabl e Dr. Yvon Hogan Attending Provider Unavailable Edison, Dr. Sanz Other Provider Unavailable Joshua, Dr. Aguilar Attending Provider Dr. Reyna Champagne Referring Provider Dr. Syed Montanez Other Provider Dr. Bart Blas Attending Provider Dr. Yvon Hogan Referring Provider Unavailable Dr. Reyna Champagne Attending Provider Dr. Reyna Champagne Other Provider Dr. Bhupendra Oliveira Primary Care Provider [phone] Dr. Bhupendra Oliveira Primary Care Provider [phone] Dr. Bhupendra Oliveira Referring Provider Mirian MORA, PA Uma Puente Attending Provider Dr. Dylon Murrieta Chi Primary Care Provider Dr. Dylon Murrieta Chi Referring Provider Dr. Syed Jeronimo Attending Provider Friend, Dr. Aguilar Other Provider Friend, Dr. Aguilar Attending Provider Dr. Dylon Murrieta Chi Primary Care Provider Dr. Dylon Murrieta Chi Referring Provider Phani, Dr. Syed Pierce Attending Provider Friend, Dr. Aguilar Other Provider Nanda Oliveira MD Primary Care Provider Dr. James Cohn Attending Provider Lit ABRAHAM, Dr. Dylon Turner Primary Care Provider Lit ABRAHAM, Dr. Dylon Turner Attending Provider [phone] Lit ABRAHAM, Dr. Dylon Turner Referring Provider Wyatt AUTOMATIC PROFILE SANDER OPERATOR-CLizette Attending Provider Dr. Bhupendra Oliveira MD Referring Provider [phone] Wan ABRAHAM, Dr. Arriaga Attending Provider Naveen ABRAHAM, Dr. Da Silva Emergency Provider MAEGAN CHAPPELL Referring Unavailable MAEGAN CHAPPELL Attending Unavailable MAEGAN CHAPPELL Admitting Unavailable Dr. Dylon Murrieta MD, Chi Primary Care Provider [phone] Dr. Avinash Hodge MD Attending Provider Lit ABRAHAM, Dr. Dylon Turner Referring Provider [phone] Wyatt AUTOMATIC PROFILE SANDER OPERATOR-CLizette Attending Provider Wyatt AUTOMATIC PROFILE SANDER OPERATOR-CLizette Referring Provider Lit ABRAHAM, Dr. Dylon Turner Primary Care Provider Dr. Dylon Murrieta MD, Chi Attending Provider [phone] SELF Referring Unavailable DEMETRIA CIFUENTES Attending Unavailable [...] UNKNOWN Consulting Unavailable PROVIDER, UNKNOWN Consulting Unavailable Dr. Dylon Murrieta MD, Chi Primary Care Physician Wyatt MONIQUECLizette Attending Physician [phone] Dr. Dylon Murrieta MD, Chi Attending Physician Dr. Avinash Hodge MD Emergency Department Physici an Linda Talley Attending Unavailable Lit, Dylon Chi Primary Care Unavailable John Ford Attending Unavailable Lit, Dylon Chi Primary Care Unavailable Lit, Dylon Chi Attending Unavailable Lit, Dylon Chi Referring Unavailable Lit, Dylon Chi Primary Care Unavailable Lit, Dylon Chi Primary Care Unavailable WyattLizette Attending Unavailable WyattLizette Referring Unavailable Lit, Dylon Chi Primary Care Unavailable Sibilia Syed V Attending Unavailable Sibilia Syed V Referring Unavailable Lit, Dylon Chi Primary Care Unavailable Avinash Hodge Attending Unavailable Lit, Dylon Chi Primary Care Unavailable Lizette Schneider Attending Unavailable Lit, Dylon Chi Referring Unavailable Zaid Fish Attending Unavailable Lit, Dylon Chi Referring Unavailable Lit, Dylon Chi Primary Care Unavailable WyattLizette Attending Unavailable Lit, Dylon Chi Referring Unavailable Lit, Dylon Chi Primary Care Unavailable Lit, Dylon Chi Primary Care Unavailable WyattLizette Attending Unavailable Lit, Dylon Chi Referring Unavailable Lit, Dylon Chi Primary Care Unavailable Bart Blas Attending Unavailable Bhupendra Oliveira Referring Unavailable WyattLizette Attending Unavailable Wyatt Lizette Referring Unavailable Lti, Dylon Chi Primary Care Unavailable Lit, Dylon [...] to adverse reactions (disorder) 04-04-20 15 Intolerance [facility] (20 sources) Cat; Translations: [CATS] Propensity to adverse reactions (disorder) 04-10-20 16 Other: See Comments [facility] (20 sources) cephalexin; Translations: [CEPHALEXIN] Drug Allergy 07-10-20 16 Hives [facility] (20 sources) ciprofloxacin; Translations: [CIPROFLOXACIN] Drug Allergy 12-11-19 12 Other: See Comments [facility] (20 sources) Dog; Translations: [DOGS] Propensity to adverse reactions (disorder) 04-10-20 16 Other: See Comments [facility] (20 sources) metoclopramide; Translations: [METOCLOPRAMIDE HCL] Drug Allergy 03-04-20 17 Other: See Comments [facility] (20 sources) niacin; Translations: [NIACIN] Drug Allergy 04-22-20 07 Unknown [facility] (20 sources) ondansetron; Translations: [ONDANSETRON HCL (PF)] Drug Allergy 02-04-20 18 Itching [facility] (20 sources) orphenadrine; Translations: [ORPHENADRINE] Drug Allergy 04-10-20 16 Unknown [facility] (2 sources) penicillin; Translations: [PENICILLIN G] Drug Allergy 10-18-19 05 [facility] (2 sources) Penicillins; Translations: [PENICILLINS] Propensity to adverse reactions (disorder) 04-04-20 15 AOF [facility] (2 sources) NIACIN PREPARATIONS; Translations: [NIACIN PREPARATIONS] Propensity to adverse reactions (disorder) 10-18-19 05 [facility] (20 sources) XANTHINES; Translations: [XANTHINES] Propensity to adverse reactions (disorder) 10-18-19 05 Unknown [facility] (20 sources) Latex Allergy to substance 06-05-20 21 [place] me [facility] (12 sources) Ondansetron Drug Allergy 06-05-20 21 Unknown [facility] (20 sources) Orphenadrine; Translations: [orphenadrine citrate] Drug Allergy 06-05-20 21 groggy [facility] (20 sources) ranolazine Drug Allergy 06-05-20 21 Itching [facility] (2 sources) medical tape Propensity to adverse reactions 09-14-20 21 blisters [facility] Work Phone: (20 sources) Capsaicin; Translations: [CAPSAICIN] Drug Allergy 03-02-20 18 Itching [facility] (20 sources) Adhesive Tape; Translations: [adhesive tape] Propensity to adverse reactions 06-12-20 22 Other [facility] Comment on above: MEDICAL TAPE - BLIST ERS BANDAIDS (1 source) Adhesive Tape Allergy to substance Blisters [facility] (1 source) Aspirin / Caffeine / Orphenadrine; Translations: [ASA/caffeine/orph enadrine] Drug Allergy 04-22-20 07 out of body [facility] (1 source) Penicillin; Translations: [penicillin] Drug Allergy 04-22-[address] [facility] (15 sources) Metoclopramide Drug Allergy 06-03-20 23 Itching [facility] (1 source) Adhesive Tape; Translations: [TAPE ALLERGY] Propensity to adverse reactions (disorder) 12-06-19 25 [facility] Rep[facility] (1 source) Cat; Translations: [CAT ALLERGY] Propensity to adverse reactions (disorder) 12-06-19 25 [facility] (1 source) Aspirin / Caffeine / Orphenadrine Drug Allergy [facility] (1 source) Ciprofloxacin Drug Allergy [facility] (1 source) Latex Drug allergy (disorder) 06-19-20 25 [facility] (1 source) Metoclopramide Drug Allergy 06-19-20 25 [facility] Rep[facility] (1 source) ranolazine Drug Allergy 06-19-20 25 [facility] Repository Medications Current Medications Medication Drug Class(es) Dates Sig (Normalized) Sig (Original) [id number] 200 actuat albuterol 0.09 mg/actuat metered dose [...] Comment on above: Take 1 tablet by [facility] one time a week. Take with a [...] Comment on above: Take 1 capsule by [facility] once daily. clotrimazole 10 mg/ml topical cream [...] neuropathy, with long-term current use of insulin ([facility]) Evaluation for diabetic shoes and inserts Dx: E11.65, Z79.4 1 Each 12/27/2016 Active Start: 12-27-2016 COMPOUNDED PRE SCRIPTION Indications: Type 2 diabetes mellitus with diabetic neuropathy, with long-term current use of insulin ([facility]) Evaluation for diabetic shoes and inserts Dx: [...] Comment on above: [facility] twice daily as needed for muscle spasm. cycloSPORINE 0.9 mg/ml ophthalmic solution (20 sources) Calcineurin Inhibitor Immunosuppressant Start: 023 cycloSPORINE (CEQUA) 0.09 % dropperette Use 1 Drop in both eyes every 12 hours. 02/28/2023 Active Comment on above: Use 1 Drop in both e yes every 12 hours. docusate sodium 50 mg / sennosides, mcc 8.6 mg oral tablet (3 sources) Start: [...] Comment on above: Take 1 capsule by [facility] once daily. Vytorin (1 source) HMG-CoA Reductase Inhibitor, Dietary Cholesterol Absorption Inhibitor Start: 010 take 0.125 mg by mouth once daily Vytorin 10/80 mg po daily Start Date: 10/12/09 Status: Ordered Facial Mask [facility] (20 sources) Start: 020 [facility] once daily. Oxygen mask to be worn daily for history of hypoxia. 1 Each 09/04/2020 Active Start: 09-04-2020 Facial Mask [place] 1 Device once daily. Oxygen mask to [...] reade r (FREESTYLE KIRA 14 DAY READER) mis (20 sources) Start: 11-26-2018 flash glucose scanning reader (FREESTYLE KIRA 14 DAY READER) [facility] Indications: Type 2 diabetes mellitus treated with insulin (HCC) Use to check blood sugars 4-5 times per day Dx: Type 2 diabetes mellitus treated with insulin E11.9 1 Each 11/26/2018 Active Start: 11-26-2018 flash glucose scanning reader (FREESTYLE KIRA 14 DAY READER) [facility] Indications: Type 2 diabetes [...] above: 1 Drop every 4 hours . Ubkxrgxqobh-Vmsnndphd-Uab anter [Fluticasone Fur. 100 Mcg-Umeclid 62.5 Mcg-Vilant 25 Mcg Inhalat.Powder] (20 sources) Anticholinergic, Corticosteroid, beta2-Adrenergic Agonist Start: 06-19-2025 Start: 03-03-2024 End: 03-03-2024 Pyytprmvpyx-Sartkgvqw-Tyqixr er (Trelegy Ellipta) 100-62.5-25 mcg blister with device Discontinued 1 NMA INHALATION DAILY 1 0 March 03, 2024 3:18pm March 03, 2024 3:19pm Start: 03-03-2024 End: 03-03-2024 Zcyeguriqys-Lctkqdiac-Ibefst er (Trelegy Ellipta) 100-62.5-25 mcg blister with device Discontinued 1 NMA INHALATION DAILY March 03, 2024 3:18pm March 03, 2024 3:19pm Start: 03-03-2024 End: 12-04-2024 Ecxfqahhrhj-Bapymvnku-Ovpkgf er (Trelegy Ellipta) 100-62.5-25 mcg blister with device Discontinued 1 NMA INHALATION DAILY 60 0 March 03, 2024 12:00am December 04, 2024 10:01pm Start: 03-03-2024 End: 12-04-2024 Hnyijciwqae-Qzqyjglvt-Viurny er (Trelegy Ellipta) 100-62.5-25 mcg blister with device Discontinued 1 NMA INHALATION DAILY 60 March 03, 2024 12:00am December 04, 2024 10:01pm Start: 01-19-2024 End: 03-03-2024 Ojagbhxvdxo-Zfmzqjjfr-Vbbram er (Trelegy Ellipta) 100-62.5-25 mcg blister with device Discontinued 1 NMA INHALATION DAILY January 19, 2024 12:00am March 03, 2024 3:19pm Start: 01-19-2024 Fluticasone-Um eclidin-Vilanter (Trelegy Ellipta) 100-62.5-25 mcg blister with device Active 1 INH INHALATION DAILY January 19, 2024 12:00am take 1 puff(s) by inhalation once daily xwgrhufnnbz-qipdnawtf-cpdlhwlc (TRELEGY ELLIPTA) 100-62.5-25 mcg inhalation powder Inhale [...] on above: TAKE 4 TABLETS BY MO UTH NEEDED FOR LOW BLOOD SUGAR. Incontinence Pad, [...] Discontinued 45 U SC TWICE A DAY August 20, 2023 4:47pm November 25, 2023 10:20am DM Start: 06-13-2023 insulin glargi ne (LANTUS SOLOSTAR U-100 INSULIN) 100 unit/mL (3 mL) Indications: Type 2 diabetes mellitus with hyperglycemia, with long-term current use of insulin (HCC) Inject 60 units subcutaneously twice daily 15 Each 06/13/2023 Active Start: 05-13-2023 End: 06-03-2023 insulin glargine (LANTUS ELAINE OSTAR U-100 INSULIN) 100 unit/mL (3 mL) Indications: Type 2 diabetes mellitus with hyperglycemia, with long-term current use of insulin (HCC) Inject 56 units subcutaneously twice daily 15 Each 06/03/2023 Active Start: 03-17-2023 End: 05-13-2023 insulin glargine (LANTUS ELAINE OSTAR U-100 INSULIN) 100 unit/mL (3 mL) Indications: Type 2 diabetes mellitus with diabetic neuropathy, with long-term current use of insulin (HCC) Inject 54 units subcutaneously twice daily 15 Each 03/17/2023 05/13/2023 Discontinued Start: 02-28-2023 End: 03-17-2023 insulin glargine (LANTUS ELAINE OSTAR U-100 INSULIN) 100 unit/mL (3 mL) Indications: Type 2 diabetes mellitus with diabetic neuropathy, with long-term current use of insulin (HCC) Inject 48 units subcutaneously twice daily 15 Each 02/28/2023 03/17/2023 Discontinued Start: 02-28-2023 End: 03-17-2023 insulin glargine (LANTUS ELAINE OSTAR U-100 INSULIN) 100 unit/mL (3 mL) Indications: Type 2 diabetes mellitus with diabetic neuropathy, with long-term current use of insulin (HCC) Inject 48 units subcutaneously twice daily 15 Each 02/28/2023 03/17/2023 Discontinued Start: 07-01-2022 insulin glargi ne (LANTUS SOLOSTAR U-100 INSULIN) 100 unit/mL (3 mL) Indications: Type 2 diabetes mellitus with diabetic neuropathy, with long-term current use of insulin ([facility]) Inject 42 units subcutaneously twice daily 15 Each 07/01/2022 Active Start: 06-12-2022 End: 08-20-2023 Insulin [...] neuropathy, with long-term current use of insulin ([facility]) , Type 2 diabetes mellitus with hyperglycemia, with long-term current use of insulin ([facility]) Inject 14units with breakfast, 14 units with [...] hyperglycemia, with long-term current use of insulin ([facility]) Inject subcutaneously 14 units with breakfast, 16 [...] unspecified vessel or lesion type, unspecified whether [place] or transplanted heart (HCC) , Essential hypertension [...] unspecified vessel or lesion type, unspecified whether [place] or transplanted heart (HCC) , Essential hypertension [...] Discontinued 100 mg PO TWICE A DAY 10 October 26, 2020 1:00am November 27, 2020 4:55pm Comment on above: Take 1 capsule by [facility] twice daily with meals for 5 days. [...] Comment on above: Take 1 capsule by [facility] once daily. OXYGEN, HOME THERAPY, (20 sources) Start: 05-21-20 17 OXYGEN, HOME THERAPY, Inhale 3 L/min as instructed as directed. 0 05/21/2017 Active Comment on above: Inhale 3 L/min as in structed as directed. potassium chloride 10 meq extended release oral tablet (20 sources) Start: 06-08-20 19 take 1 tablet by mouth once daily [...] above: Take 1 tablet by shlomo [facility] three times daily. for 5 days prn [...] mg tablet Discontinued 5 mg PO DAILY 20 09November 07, 2022 5:28pm November 12, 2022 1:11pm [...] Active Comment on above: Glucose Meter of [place] - Kit - Dx: Type 2 [...] tablet Discontinued 75 mg PO DAILY 30 September 23, 2019 10:47am September 28, 2019 [...] release 24hr Discontinued 120 mg PO DAILY 21 03August 11, 2019 1:00am December 01, 2019 4:20pm [...] on above: Take 1 capsule by [facility] twice daily as needed for constipation. doxycycline [...] Ergocalciferol (Vitamin D2) 50,000 unit capsule Discontinued 38721 U PO EVERY WEEK June 08, 2019 [...] 40 U SC TWICE A DAY 1 0 August 29, 2016 1:08pm November 27, 2016 9:16am Start: 08-29-2016 End: 11-27-2016 Insulin Detemir U-100 (Levem ir Flextouch U-100 Insuln) 100 UNITS/ML Insuln.Pen Discontinued 40 UNITS SC TWICE A DAY 1 August 29, [...] Discontinued 32 UNITS SC TWICE A DAY 1 November 01, [...] MG tablet Discontinued 60 mg PO DAILY 30 0 June 21, 2015 12:00am November 27, 2016 [...] Comment on above: TAKE 1 TABLETS BY MO [facility] EVERY MORNING - (120mg daily) lisinopril [...] 120 mL PO 4 TIMES DAILY 100 February 05, 2018 12:00am April 05, 2018 [...] Date: 05/19/07 Status: Ordered polyethylene glycol 3350 28057 mg powder for oral solution (20 sources) Osmotic Laxative Start: 12-25-19 End: 06-12-20 Polyethylene Glycol 3350 (Miralax) 17 gram/dose powder Discontinued 17 g PO DAILY 510 30 0 December 24, 2021 12:00am June 12, 2022 [...] Disc ontinued 4 {tbl} PO DAILY 20 July 26, 2018 12:00am August 06, 2018 [...] 2013 12:00am December 10, 2013 2:32pm sennosides, mcc 8.6 mg oral tablet (20 sources) Start: [...] disease (20 sources) Atherosclerotic heart disease of [place] coronary artery without angina pectoris; Translations: [Coronary [...] sources) Long-term current use of anticoagulant; 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] 01-01-2022 Episodic Other aftercare (4 sources) Drug therapy finding; 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] 03-02-2024 Episodic Other [...] idiopathic constipation; Translations: [Chronic idiopathic constipation] Onset: Chronic Other gastrointestinal disorders (20 sources) Dysphagia; [...] Comment on above: On home oxygen at [facility] Other lower respiratory disease (1 source) Other [...] eGFR DAILYon 2024 AGE 70 years Normal [facility] Comment on above: Performed By: #### [id number] #### [facility],[address] [place] [address] 05018 Anion gap [Moles/Vol] 13 mmol/L Normal 10 - 20 [facility] Comment on above: Performed By: #### [id number] #### [facility],[address] [place] [address] 39481 BMP with eGFR DAILY Normal [facility] Comment on above: Result Comment: BASI C METABOLIC PANEL Performed By: #### [id number] #### [facility],[address] [place] [address] 86966 Calcium [Mass/Vol] 8.4 mg/dL Low 8.5 - 10.1 [facility] Comment on above: Performed By: #### [id number] #### [facility],[address] [place] [address] 86859 Chloride [Moles/Vol] 104 mmol/L Normal 98 - 107 [facility] Comment on above: Performed By: #### 2 [id number] #### [facility],[address] [place] [address] 11923 CO2 [Moles/Vol] 25.7 mmol/L Normal 21.0 - 32.0 [facility] Comment on above: Performed By: #### 2 [id number] #### [facility],[address] [place] [address] 33448 Creatinine [Mass/Vol] 0.91 mg/dL Normal 0.55 - 1.02 [facility] Comment on above: Performed By: #### 2 [id number] #### [facility],[address] [place] [address] 48311 GFR/1.73 sq M.predicted among non-blacks MDRD (S/P/Bld) [Vol rate/Area] mL/min/{1.73_m2} Normal 60 - 999 [facility] Comment on above: Performed By: #### [id number] #### [facility],[address] [place] [address]1989 Result Comment: ACCO RDING TO THE NATIONAL KIDNEY DISEASE EDUCATION PROGRAM(NKDE), A NORMAL eGFR IS A VALUE GREATER THAN OR EQUAL TO 60 ML/MIN/1.73 SQ METERS. CHRONIC KIDNEY DISEASE: <60mL/MIN/1.73 SQ METERS KIDNEY FAILURE: <15mL/MIN/1.73 SQ METERS THIS TEST SHOULD ONLY BE USED FOR PATIENTS 18 YEARS OF AGE AND OLDER. Glucose [Mass/Vol] 181 mg/dL High 74 - 106 [facility] Comment on above: Performed By: #### [id number] #### [facility],[address] [place] [address] 19956 Potassium [Moles/Vol] 3.8 mmol/L Normal 3.5 - 5.1 [facility] Comment on above: Performed By: #### 2 [id number] #### [facility],[address] [place] [address]481 Sodium [Moles/Vol] 139 mmol/L Normal 136 - 145 [facility] Comment on above: Performed By: #### 2 48820 #### [facility],[address] [place] [address] 38760 Urea nitrogen [Mass/Vol] 14 mg/dL Normal 7 - 18 [facility] Comment on above: Performed By: #### 2 26756 #### [facility],[address] [place] [address] 41968 CBC DAILYon 05-17-2025 Baso # 0.01 x10EE3/UL Normal 0.00 - 0.10 [facility] Comment on above: Performed By: #### 2 65398 ####[facility],[address] [place] [address] 73942 Basophils/100 WBC (Bld) 0.1 % Normal 0.0 - 2.0 [facility] Comment on above: Performed By: #### 2 76432 ####[facility],[address] [place] [address] EO # 0.25 x10EE3/UL Normal 0.00 - 0.50 [facility] Comment on above: Performed By: #### 2 95225 ####[facility],[address] [place] [address] Eosinophils/100 WBC (Bld) 3.4 % Normal 0.0 - 7.0 [facility] Comment on above: Performed By: #### 2 72482 ####[place] [address] Erythrocyte distribution width (RBC) [Ratio] 14.8 % Normal 12.0 - 15.6 [facility] Comment on above: Performed By: #### 2 01372 ####[place] [address] Hematocrit (Bld) [Volume fraction] 32.3 % Low 34.0 - 46.0 [facility] Comment on above: Performed By: #### 2 22462 ####[place] [address] Hemoglobin (Bld) [Mass/Vol] 10.9 g/dL Low 12.0 - 16.0 [facility] Comment on above: Performed By: #### 2 47743 ####[facility],[address] [place] [address] Lymph # 1.03 x10EE3/UL Normal 0.80 - 2.80 [facility] Comment on above: Performed By: #### 2 10368 ####[place] [address] Lymphocytes/100 WBC (Bld) 13.7 % Low 20.0 - 45.0 [facility] Comment on above: Performed By: #### 2 12089 ####[place] [address] MANUAL DIFF N/A Normal [facility] Comment on above: Performed By: #### 2 44774 ####[facility],[address] [place] [address] MCH (RBC) [Entitic mass] 30 pg Normal 27 - 33 [facility] Comment on above: Performed By: #### 2 61041 ####[facility],[address] [place] [address] MCHC 34 X10 3 Normal 32 - 36 [facility] Comment on above: Performed By: #### 2 89709 ####[facility],[address] [place] [address] MCV (RBC) [Entitic vol] 91 fL Normal 80 - 99 [facility] Comment on above: Performed By: #### 2 02872 ####[facility],[address] [place] [address] [place] # 0.53 x10EE3/UL Normal 0.20 - 1.00 [facility] Comment on above: Performed By: #### 2 45807 ####[facility],[address] [place] [address] MONOS % 7.0 % Normal 0.0 - 10.0 [facility] Comment on above: Performed By: #### 2 09924 ####[facility],[address] [place] [address] Morphology Prashanth (Bld) [Interp] N/A Normal [facility] Comment on above: Performed By: #### 2 32946 ####[facility],[address] [place] [address] Neut # 5.68 x10EE3/UL Normal 1.50 - 7.10 [facility] Comment on above: Performed By: #### 2 67233 ####[facility],[address] [place] [address] Neutrophils/100 WBC (Bld) 75.8 % Normal 46.0 - 76.0 [facility] Comment on above: Performed By: #### 2 15651 ####[facility],[address] [place] [address] 55623 PLATELET 141 x10EE3/UL Low 150 - 450 [facility] Comment on above: Performed By: #### 2 70785 ####[facility],[address] [place] [address] 12685 Platelet mean volume (Bld) [Entitic vol] 8.8 fL Normal 6.6 - 10.5 [facility] Comment on above: Result Comment: AUTO MATED DIFFERENTIAL Performed By: #### 2 26806 ####[address] [address] RBC 3.57 x 10EE6/UL Low 4.10 - 5.30 [facility] Comment on above: Performed By: #### 2 04651 ####[address] [address] WBC 7.5 x 10EE3/UL Normal 4.5 - 10.8 [facility] Comment on above: Performed By: #### 2 80336 ####[facility],[address] [place] [address] 65995 BMP with eGFR DAILYon 2024 AGE 70 years Normal [facility] Comment on above: Performed By: #### 2 64481 #### [address] [address] Anion gap [Moles/Vol] 11 mmol/L Normal 10 - 20 [facility] Comment on above: Performed By: #### 2 03920 #### [address] [address] BMP with eGFR DAILY Normal [facility] Comment on above: Result Comment: BASI C METABOLIC PANEL Performed By: #### 2 96732 #### [address] [address] Calcium [Mass/Vol] 8.2 mg/dL Low 8.5 - 10.1 [facility] Comment on above: Performed By: #### 2 48516 #### [facility],[address] [place], [place] [address] Chloride [Moles/Vol] 105 mmol/L Normal 98 - 107 [facility] Comment on above: Performed By: #### 2 46617 #### [facility],[address] [place] [address] CO2 [Moles/Vol] 27.9 mmol/L Normal 21.0 - 32.0 [facility] Comment on above: Performed By: #### 2 13479 #### [facility],[address] [place] [address] Creatinine [Mass/Vol] 0.83 mg/dL Normal 0.55 - 1.02 [facility] Comment on above: Performed By: #### 2 31866 #### [facility],[address] [place], [place] [address] GFR/1.73 sq M.predicted among non-blacks MDRD (S/P/Bld) [Vol rate/Area] mL/min/{1.73_m2} Normal 60 - 999 [facility] Comment on above: Performed By: #### 2 50929 #### [place] [address] Result Comment: ACCO RDING TO THE NATIONAL KIDNEY DISEASE EDUCATION PROGRAM(NKDE), A NORMAL eGFR IS A VALUE GREATER THAN OR EQUAL TO 60 ML/MIN/1.73 SQ METERS. CHRONIC KIDNEY DISEASE: <60mL/MIN/1.73 SQ METERS KIDNEY FAILURE: <15mL/MIN/1.73 SQ METERS THIS TEST SHOULD ONLY BE USED FOR PATIENTS 18 YEARS OF AGE AND OLDER. Glucose [Mass/Vol] 187 mg/dL High 74 - 106 [facility] Comment on above: Performed By: #### 2 19653 #### [facility],[address] [place], [place] [address] Potassium [Moles/Vol] 3.4 mmol/L Low 3.5 - 5.1 [facility] Comment on above: Performed By: #### 2 45908 #### [facility],[address] [place] [address] 69669 Sodium [Moles/Vol] 140 mmol/L Normal 136 - 145 [facility] Comment on above: Performed By: #### 2 35368 #### [facility],[address] [place] [address] 85137 Urea nitrogen [Mass/Vol] 14 mg/dL Normal 7 - 18 [facility] Comment on above: Performed By: #### 2 88374 #### [facility],[address] [place] [address] 85545 CBC DAILYon 05-16-2025 Baso # 0.01 x10EE3/UL Normal 0.00 - 0.10 [facility] Comment on above: Performed By: #### 2 55832 ####[facility],[address] [place] [address] 73536 Basophils/100 WBC (Bld) 0.1 % Normal 0.0 - 2.0 [facility] Comment on above: Performed By: #### 2 29183 ####[facility],[address] [place] [address] 60021 EO # 0.12 x10EE3/UL Normal 0.00 - 0.50 [facility] Comment on above: Performed By: #### 2 62082 ####[facility],[address] [place] [address] 51195 Eosinophils/100 WBC (Bld) 1.4 % Normal 0.0 - 7.0 [facility] Comment on above: Performed By: #### 2 13725 ####[facility],[address] [place] [address] 92104 Erythrocyte distribution width (RBC) [Ratio] 15.5 % Normal 12.0 - 15.6 [facility] Comment on above: Performed By: #### 2 75372 ####[facility],[address] [place] [address] 15262 Hematocrit (Bld) [Volume fraction] 32.5 % Low 34.0 - 46.0 [facility] Comment on above: Performed By: #### 2 46621 ####[facility],[address] [place] [address] 22711 Hemoglobin (Bld) [Mass/Vol] 11.0 g/dL Low 12.0 - 16.0 [facility] Comment on above: Performed By: #### 2 35451 ####[facility],[address] [place] [address] 60584 Lymph # 0.94 x10EE3/UL Normal 0.80 - 2.80 [facility] Comment on above: Performed By: #### 2 44557 ####[facility],[address] [place] [address] 78851 Lymphocytes/100 WBC (Bld) 10.6 % Low 20.0 - 45.0 [facility] Comment on above: Performed By: #### 2 50520 ####[facility],[address] [place] [address] 41672 MANUAL DIFF N/A Normal [facility] Comment on above: Performed By: #### 2 17522 ####[facility],[address] [place] [address] 69058 MCH (RBC) [Entitic mass] 31 pg Normal 27 - 33 [facility] Comment on above: Performed By: #### 2 87026 ####[facility],[address] [place] [address] 10914 MCHC 34 X10 3 Normal 32 - 36 [facility] Comment on above: Performed By: #### 2 82398 ####[facility],[address] [place] [address] 97181 MCV (RBC) [Entitic vol] 91 fL Normal 80 - 99 [facility] Comment on above: Performed By: #### 2 75881 ####[facility],[address] [place] [address] 56549 [place] # 0.46 x10EE3/UL Normal 0.20 - 1.00 [facility] Comment on above: Performed By: #### 2 39834 ####[facility],[address] [place] [address] 77297 MONOS % 5.3 % Normal 0.0 - 10.0 [facility] Comment on above: Performed By: #### 2 79910 ####[facility],[address] [place] [address] Morphology Prashanth (Bld) [Interp] N/A Normal [facility] Comment on above: Performed By: #### 2 42476 ####[facility],[address] [place] [address] Neut # 7.27 x10EE3/UL High 1.50 - 7.10 [facility] Comment on above: Performed By: #### 2 79223 ####[facility],[address] [place], [place] [address] Neutrophils/100 WBC (Bld) 82.7 % High 46.0 - 76.0 [facility] Comment on above: Performed By: #### 2 86635 ####[facility],[address] [place] [address] PLATELET 133 x10EE3/UL Low 150 - 450 [facility] Comment on above: Performed By: #### 2 58130 ####[facility],[address] [place] [address] Platelet mean volume (Bld) [Entitic vol] 8.9 fL Normal 6.6 - 10.5 [facility] Comment on above: Result Comment: AUTO MATED DIFFERENTIAL Performed By: #### 2 94466 ####[facility],[address] [place], [place] [address] RBC 3.57 x 10EE6/UL Low 4.10 - 5.30 [facility] Comment on above: Performed By: #### 2 79866 ####[facility],[address] [place] [address] 06542 WBC 8.8 x 10EE3/UL Normal 4.5 - 10.8 [facility] Comment on above: Performed By: #### 2 13983 ####[facility],[address] [place] [address] 43919 BMP with eGFR DAILYon 2024 AGE 70 years Normal [facility] Comment on above: Performed By: #### 2 44992 #### [facility],[address] [place] [address] 56200 Anion gap [Moles/Vol] 13 mmol/L Normal 10 - 20 [facility] Comment on above: Performed By: #### 2 31278 #### [facility],[address] [place] [address] 94914 BMP with eGFR DAILY Normal [facility] Comment on above: Result Comment: BASI C METABOLIC PANEL Performed By: #### 2 69545 #### [facility],[address] [place] [address] 95171 Calcium [Mass/Vol] 8.0 mg/dL Low 8.5 - 10.1 [facility] Comment on above: Performed By: #### 2 59789 #### [facility],[address] [place] [address] 65051 Chloride [Moles/Vol] 108 mmol/L High 98 - 107 [facility] Comment on above: Performed By: #### 2 29128 #### [facility],[address] [place] [address] 61854 CO2 [Moles/Vol] 26.2 mmol/L Normal 21.0 - 32.0 [facility] Comment on above: Performed By: #### 2 14715 #### [facility],[address] [place] [address] 88009 Creatinine [Mass/Vol] 0.94 mg/dL Normal 0.55 - 1.02 [facility] Comment on above: Performed By: #### 2 83744 #### [facility],[address] [place] [address] 51545 eGFR 59 ML/MINUTE Low 60 - 999 [facility] Comment on above: Performed By: #### 2 80707 #### [facility],[address] [place] [address] 24764 GFR/1.73 sq M.predicted among non-blacks MDRD (S/P/Bld) [Vol rate/Area] mL/min/{1.73_m2} Normal 60 - 999 [facility] Comment on above: Result Comment: ACCO RDING TO THE NATIONAL KIDNEY DISEASE EDUCATION PROGRAM(NKDE), A NORMAL eGFR IS A VALUE GREATER THAN OR EQUAL TO 60 ML/MIN/1.73 SQ METERS. CHRONIC KIDNEY DISEASE: <60mL/MIN/1.73 SQ METERS KIDNEY FAILURE: <15mL/MIN/1.73 SQ METERS THIS TEST SHOULD ONLY BE USED FOR PATIENTS 18 YEARS OF AGE AND OLDER. Performed By: #### 2 54170 #### [facility],[address] [place] [address] 30384 Glucose [Mass/Vol] 156 mg/dL High 74 - 106 [facility] Comment on above: Performed By: #### 2 67239 #### [facility],[address] [place] [address] 22647 Potassium [Moles/Vol] 3.7 mmol/L Normal 3.5 - 5.1 [facility] Comment on above: Performed By: #### 2 82116 #### [facility],[address] [place] [address] 28381 Sodium [Moles/Vol] 143 mmol/L Normal 136 - 145 [facility] Comment on above: Performed By: #### 2 54546 #### [facility],[address] [place] [address] 13646 Urea nitrogen [Mass/Vol] 16 mg/dL Normal 7 - 18 [facility] Comment on above: Performed By: #### 2 66296 #### [facility],[address] [place] [address] 00261 CBC DAILYon 05-15-2025 Baso # 0.01 x10EE3/UL Normal 0.00 - 0.10 [facility] Comment on above: Performed By: #### 2 59254 ####[facility],[address] [place], [place] [address] Basophils/100 WBC (Bld) 0.1 % Normal 0.0 - 2.0 [facility] Comment on above: Performed By: #### 2 78266 ####[facility],[address] [place] [address] 00854 EO # 0.07 x10EE3/UL Normal 0.00 - 0.50 [facility] Comment on above: Performed By: #### 2 84305 ####[place] [address] Eosinophils/100 WBC (Bld) 0.7 % Normal 0.0 - 7.0 [facility] Comment on above: Performed By: #### 2 10510 ####[place] [address] Erythrocyte distribution width (RBC) [Ratio] 14.6 % Normal 12.0 - 15.6 [facility] Comment on above: Performed By: #### 2 23903 ####[facility],[address] [place] [address] Hematocrit (Bld) [Volume fraction] 37.2 % Normal 34.0 - 46.0 [facility] Comment on above: Performed By: #### 2 80479 ####[facility],[address] [place], [place] [address] Hemoglobin (Bld) [Mass/Vol] 12.6 g/dL Normal 12.0 - 16.0 [facility] Comment on above: Result Comment: TEST REPEATED Performed By: #### 2 10040 ####[facility],[address] [place], [place] [address] Lymph # 1.43 x10EE3/UL Normal 0.80 - 2.80 [facility] Comment on above: Performed By: #### 2 89095 ####[facility],[address] [place] [address] Lymphocytes/100 WBC (Bld) 13.8 % Low 20.0 - 45.0 [facility] Comment on above: Performed By: #### 2 42566 ####[facility],[address] [place] [address] MANUAL DIFF N/A Normal [facility] Comment on above: Performed By: #### 2 32000 ####[facility],[address] [place] [address] MCH (RBC) [Entitic mass] 30 pg Normal 27 - 33 [facility] Comment on above: Performed By: #### 2 20924 ####[facility],[address] [place] [address] MCHC 34 X10 3 Normal 32 - 36 [facility] Comment on above: Performed By: #### 2 29465 ####[facility],[address] [place] [address] MCV (RBC) [Entitic vol] 89 fL Normal 80 - 99 [facility] Comment on above: Performed By: #### 2 00590 ####[facility],[address] [place] [address] [place] # 0.64 x10EE3/UL Normal 0.20 - 1.00 [facility] Comment on above: Performed By: #### 2 77420 ####[facility],[address] [place] [address] MONOS % 6.1 % Normal 0.0 - 10.0 [facility] Comment on above: Performed By: #### 2 61846 ####[facility],[address] [place] [address] Morphology Prashanth (Bld) [Interp] N/A Normal [facility] Comment on above: Performed By: #### 2 29494 ####[place] [address] Neut # 8.25 x10EE3/UL High 1.50 - 7.10 [facility] Comment on above: Performed By: #### 2 07685 ####[place] [address] Neutrophils/100 WBC (Bld) 79.3 % High 46.0 - 76.0 [facility] Comment on above: Performed By: #### 2 88942 ####[place] [address] PLATELET 105 x10EE3/UL Low 150 - 450 [facility] Comment on above: Performed By: #### 2 08074 ####[place] [address] Platelet mean volume (Bld) [Entitic vol] 8.6 fL Normal 6.6 - 10.5 [facility] Comment on above: Result Comment: AUTO MATED DIFFERENTIAL Performed By: #### 2 05726 ####[place] [address] RBC 4.19 x 10EE6/UL Normal 4.10 - 5.30 [facility] Comment on above: Performed By: #### 2 08424 ####[place] [address] WBC 10.4 x 10EE3/UL Normal 4.5 - 10.8 [facility] Comment on above: Performed By: #### 2 81688 ####[place] [address] ED MED ADMINISTRATION DETAIL on 05-15-2025 ED MED ADMINISTRATION DETAIL 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 [address] [id number] 05/14/2025 Patient: TAMIA PANDA Sex: Female : [...] 3 mL (NOW x1) R.R.T. Scanned Albuterol-Ipratropiu 13:05/14 Albuterol-Ipratropium (DuoNeb) 3mg/0.5mg Neb Tx 3 Given m (DuoNeb) mL given. - 13:05 Shan Sierra, R.R.T. 13:03 05/14/2025 3mg/0.5mg Neb Tx Shan Sierra, 3 mL (NOW x1) R.R.T. Scanned 1 of 3 Process Mold Technician - TAMIA PANDA, : 1955, , Medication [...] 14:00 05/14/2025 12:59 Augusta Echols R.N. Scanned 14:00 05/14 Medication Discontinued: bag #1 infused. Total amount infused: 1000 mL. - 07:20 Clifford [place] R.N. 2 of 3 Process Mold Technician - TAMIA PANDA, : 1955, , Medication [...] 07:21 Clifford [place] R.N. 3 of 3 [facility] ED NURSES CLINICAL NOTEon ED NURSES CLINICAL NOTE Nurse Narrative - TAMIA PANDA, : 1955, , [place] [address] [id number] 05/14/2025 12:09:00 Patient: TAMIA PANDA Sex: Female : 1955 Age: 70y Disposition: Admit to [facility] Disposition Decision Time: 15:38 05/14/2025 Departure [...] air. Temperature: 98.4 F. Pain level now 05/01. -- 12:20 05/14/25 ALEXANDREAT Clifford [place] R.N. Measurements: 12:05/14/25 Wt: 73.5 kg, Ht/Laith: 61.0 in, BMI: 30.61 -- 12:05/14/25 ALEXANDREAT Clifford [place] R.N. Medications: amlodipine 5 mg tablet -- 12:36 05/14/25 EDT Romulo Ryan R.N. atorvastatin 40 mg tablet -- 12:36 05/14/25 EDT Romulo Ryan R.N. omeprazole 40 mg capsule,delayed release -- 12:36 05/14/25 EDT Romulo Ryan R.N. levothyroxine 88 mcg tablet -- 12:36 05/14/25 EDT Romulo Ryan R.N. 1 of 5 Nurse Candy - TAMIA PANDA, : 1955, , metoprolol [...] R.N. Coronary Artery Disease -- 12:16 05/14/25 JOHN [place] R.N. Atrial Fibrillation -- 12:16 05/14/25 JOHN [place] R.N. Congestive Heart Failure -- 12:16 05/14/25 JOHN [place] R.N. Hypothyroidism -- 12:16 05/14/25 JOHN [place] R.N. Gastroesophageal Reflux Disease -- 12:16 05/14/25 JOHN [place] R.N. Depression -- 12:16 05/14/25 JOHN [place] R.N. Surgeries: Placement of stent in coronary artery -- 12:17 05/14/25 JOHN [place] R.N. Hysterectomy -- 12:17 05/14/25 JOHN [place] R.N. History 12:05/14/25. SOCIAL HX: [...] -- 12:20 05/14/25 JOHN [place] R.N. Interventions 12:13 05/14/25. To room. Advanced care plan discussed with family. Patient does not have advanced directive. -- 12:20 05/14/25 JOHN [place] R.N. PHYSICAL ASSESSMENT 13:28 05/14/25. [...] and output (more content not included)... Normal [facility] ED ORDER SHEET (CPOE ONLY)on 05-15-2025 ED ORDER SHEET (CPOE ONLY) Order Sheet - TAMIA PANDA, : 1955, , Order Sheet [address] [address] [id number] 05/14/2025 Patient: TAMIA PANDA Sex: Female : 1955 Age: 70y MEASUREMENTS: Wt: 73.5 kg, Ht/Laith: 61.0 in, BMI: 30.61 ALLERGIES: Unable to state. MEDICATION/IV/DRIP/FLUID ORDERS Order Description Priority Entered Acknowledged Completed Albuterol-Ipratropium (DuoNeb) 12:34 05/14/2025 12:52 13:03 3mg/0.5mg Neb Tx3 mL (NOW Chente Sierra, 05/14/2025 05/14/2025 x1) D.O. Clifford [place], Shan Sierra, R.N. R.R.T. Albuterol-Ipratropium (DuoNeb) 12:34 05/14/2025 12:52 13:05 3mg/0.5mg Neb Tx3 mL (NOW Chente Luz Maria, 05/14/2025 05/14/2025 x1) Shan Benoit R.N. R.R.T. Reason for ordering with alerts: Benefits outweigh risks --12:34 05/14/2025 Chente Sierra D.O. CefTRIAXone (Rocephin) IVPB 12:43 05/14/2025 12:52 12:58 2gm/50ml NS2 g diluted in Chente Sierra, 05/14/2025 05/14/2025 sodium chloride IVPB 0.9 % D.OClifford Morrow, Minibag+ 50 mL at 100 mL/hr R.N. R.N. (NOW x1) Azithromycin (Zithromax) 12:43 05/14/2025 12:52 13:14 VITZ330 mg diluted in sodium Chente Sierra, 05/14/2025 05/14/2025 chloride IVPB 0.9 % 250 mL at D.O. Clifford Echols, 1 of 4 Order Sheet - TAMIA PANDA, : 1955, , 250 mL/hr (NOW x1) R.N. R.N. IV NS 0.9 %1000 mL at 999 12:45 05/14/2025 12:52 12:59 mL/hr (NOW x1) Chente Sierra, 05/14/2025 05/14/2025 D.Clifford Willard R.N. R.NMagda Reason for ordering with alerts: Benefits outweigh [...] 12:17 05/14/2025 12:50 05/14/2025 12:51 05/14/2025 Augusta Jvaier R.N. Lemasters, D.O. Troponin-I Stat Stat 12:17 [...] Chente Sierra, 05/14/2025 05/14/2025 Clifford Benoit R.N. R.NMagda Reason for Study: Shortness of Breath 3 of 4 Order Sheet - MAYURI PANDALIS, : 1955, , STAFF ORDERS Order Description Priority Entered Acknowledged Collected Completed Ntfy if Abnml Vitals 12:17 05/14/2025 12:50 05/14/2025 12:51 05/14/2025 Augusta Javier R.N. Lemasters, D.O. Revenue Director 12:17 05/14/2025 12:50 05/14/2025 12:51 05/14/2025 Augusta Javier R.N. Lemasters, D.O. IO 12:17 05/14/2025 12:50 05/14/2025 12:51 05/14/2025 Augusta Javier R.N. Lemasters, D.O. ABG- Notify RT 12:17 05/14/2025 12:50 05/14/2025 12:51 05/14/2025 Chente Augusta Echols R.N. Lemasters, D.O. [Electronically signed by Chente Sierra D.O. (05/14/2025 18:22 EDT)] 4 of 4 [facility] ED PHYSICIAN CLINICAL REPORT on 05-15-2025 ED PHYSICIAN CLINICAL REPORT Narrative - TAMIA PANDA, : 1955, , Physician Clinical Narrative [place] [id number] [place] [address] [id number] 05/14/2025 12:09:00 Patient: TAMIA PANDA Sex: Female : 1955 Age: 70y Disposition: Admit to [facility] Disposition Decision Time: 15:38 05/14/2025 Departure [...] 0.0 - 2.0 Final EDT 4 of [facility] - TAMIA PANDA, : 1955, , 0.79 x10/UL 05/14/2025 12:45 Lymph # 0.80 - 2.80 Final Below low normal EDT 7.24 x10/UL 05/14/2025 12:45 Neut # 1.50 - 7.10 Final Above high normal EDT 05/14/2025 12:45 [place] # 0.53 x10/UL 0.20 - 1.00 Final EDT 05/14/2025 12:45 EO # 0.04 x10/UL 0.00 - 0.50 Final EDT 05/14/2025 12:45 Baso # 0.01 x10/UL 0.00 - 0.10 Final EDT 05/14/2025 12:45 MANUAL DIFF N/A New Order EDT 05/14/2025 12:45 MORPHOLOGY N/A New Order EDT CMP with eGFR Final JOAQUÍN: 05/14/2025 12:20:00 EDT MsgRcvd: 05/14/2025 13:02 EDT La (more content not included)... Normal [facility] ED SUPER BILLon 05-15-[address] [facility] [facility] : 1955, , [address] [address] [id number] 05/14/2025 Patient: TAMIA PANDA Sex: Female : 1955 Age: 70y Item Facility Professional Category Description Code Code Quantity Fee Total Drugs Normal Saline 810687 2 $0.00 $0.00 1000cc (929207) Nurse/E/M EMERGENCY 142582 1 $0.00 $0.00 DEPARTMENT VISIT HIGH/URGENT SEVERITY (62070-12) Nurse/IV/IM/Infusions Drip/IVPB initial 995117 2 $0.00 $0.00 (88400) Nurse/IV/IM/Infusions Hydration 125216 2 $0.00 $0.00 additional hour (98178) Nurse/Procedures Respiratory 679845 1 $0.00 $0.00 therapy - inhalation (66436) Nurse/Supplies Oxygen in the 656621 1 $0.00 $0.00 ED (611245) 1 of 2 [facility] TAMIA PANDA, : 1955, , Item Facility Professional Category Description Code Code Quantity Fee Total Physician/Procedures Maradiaga catheter 987558 1 $0.00 $0.00 (27862) Grand Total $0.00 Providers Chente Sierra D.O. Chief Complaint DYSPNEA and HISTORY OF CHRONIC OBSTRUCTIVE PULMONARY DISEASE. Principal Diagnosis Sepsis. Pneumonia. Urinary tract infection. ICD-10 Codes J18.9: Pneumonia, unspecified organism A41.9: Sepsis, unspecified organism N39.0: Urinary tract infection, site not specified 2 of 2 Normal [facility] ED VISIT SUMMARYon ED VISIT SUMMARY Visit Overview - TAMIA COLLADO, : 1955, , Visit Overview [place] [id number] 05/14/2025 Patient: TAMIA PANDA Sex: Female : [...] 12:20 05/14/25 116/39 BP 16:32 05/14/25 HR 12:05/14/25 112 HR 16:32 05/14/25 113 RR 12:20 [...] URINARY TRACT INFECTION 4 of 4 Normal [facility] ED VITALS FLOW SHEETon 05-15 ED VITALS FLOW SHEET Vitals - MAYURI PADNA, : 1955, , Vital Sign Flow Sheet [address] [place] [address] [id number] 05/14/2025 Patient: TAMIA PANDA Sex: Female : [...] 107 90% 2 of 4 Vitals - [place] TAMIA, : 1955, , Measured Time BP MAP [...] 32 95% NC 4L 3 of 4 [facility] - TAMIA PANDA, : 1955, , Measured [...] 98.4 F 8 4 of 4 Normal [facility] MAGNESIUMon 05-15-2025 Magnesium [Mass/Vol] 2.1 mg/dL Normal 1.8 - 2.4 [facility] Comment on above: Performed By: #### 2 56613 #### [facility],[address] [place] [address] Bacteria Ur Culton Bacteria identified Cx Nom (U) ORGANISM ID: 1 >=100,000 CFU/ml Escherichia coli Extended-spectrum beta-lactamase (ESBL) production detected in this isolate. ESBL producing strains are considered resistant to all cephalosporins, penicillins, and aztreonam. ORGANISM ID: 2 >=100,000 CFU/ml Lactobacillus species Normal urogenital mario. No further workup. ORGANISM ID: 1 (ESCHERICHIA COLI) ANTIBIOTIC INTERPRETATION JEZ STATUS REFERENCE RANGE Ampicillin R >=32 F [...] , Intermediate >32 , Resistant >64 Abnormal [facility] Comment on above: Performed By: #### 6 30-4 #### [facility] CLIA [id number] [address] [place] [address] [place] CBC + DIFFon 05-14-2025 Baso # 0.01 x10EE3/UL Normal 0.00 - 0.10 [facility] Comment on above: Performed By: #### 2 26212 #### [facility],[address] [place] [address] 93876 Basophils/100 WBC (Bld) 0.2 % Normal 0.0 - 2.0 [facility] Comment on above: Performed By: #### 2 81546 #### [facility],[address] [place] [address] 64868 CBC + DIFF Normal [facility] Comment on above: Result Comment: CBC- COMPLETE BLOOD COUNT Performed By: #### 2 94006 #### [facility],[address] [place] [address] EO # 0.04 x10EE3/UL Normal 0.00 - 0.50 [facility] Comment on above: Performed By: #### 2 94591 #### [facility],[address] [place] [address] 17127 Eosinophils/100 WBC (Bld) 0.5 % Normal 0.0 - 7.0 [facility] Comment on above: Performed By: #### 2 46162 #### [facility],[address] [place], [place] [id number] Erythrocyte distribution width (RBC) [Ratio] 14.9 % Normal 12.0 - 15.6 [facility] Comment on above: Performed By: #### 2 15061 #### [facility],[address] [place] [address] Hematocrit (Bld) [Volume fraction] 43.0 % Normal 34.0 - 46.0 [facility] Comment on above: Performed By: #### 2 54736 #### [facility],[address] [place] [address] 09616 Hemoglobin (Bld) [Mass/Vol] 15.1 g/dL Normal 12.0 - 16.0 [facility] Comment on above: Performed By: #### 2 77068 #### [facility],[address] [place] [address] 50444 Lymph # 0.79 x10EE3/UL Low 0.80 - 2.80 [facility] Comment on above: Performed By: #### 2 72306 #### [facility],[address] [place] [address] 50878 Lymphocytes/100 WBC (Bld) 9.1 % Low 20.0 - 45.0 [facility] Comment on above: Performed By: #### 2 40347 #### [facility],[address] [place] [address] 64986 MANUAL DIFF N/A Normal [facility] Comment on above: Performed By: #### 2 91810 #### [facility],[address] [place], [place] [id number] MCH (RBC) [Entitic mass] 32 pg Normal 27 - 33 [facility] Comment on above: Performed By: #### 2 01650 #### [facility],[address] [place] [address] 93642 MCHC 35 X10 3 Normal 32 - 36 [facility] Comment on above: Performed By: #### 2 51996 #### [facility],[address] [place] [address] 44594 MCV (RBC) [Entitic vol] 90 fL Normal 80 - 99 [facility] Comment on above: Performed By: #### 2 00149 #### [facility],[address] [place] [address] 37779 [place] # 0.53 x10EE3/UL Normal 0.20 - 1.00 [facility] Comment on above: Performed By: #### 2 01746 #### [facility],[address] [place] [address] 20581 MONOS % 6.1 % Normal 0.0 - 10.0 [facility] Comment on above: Performed By: #### 2 96369 #### [facility],[address] [place] [address] 53802 Morphology Prsahanth (Bld) [Interp] N/A Normal [facility] Comment on above: Performed By: #### 2 72963 #### [facility],[address] [place] [address] 18426 Neut # 7.24 x10EE3/UL High 1.50 - 7.10 [facility] Comment on above: Performed By: #### 2 85895 #### [facility],[address] [place] [address] 43348 Neutrophils/100 WBC (Bld) 84.1 % High 46.0 - 76.0 [facility] Comment on above: Performed By: #### 2 21870 #### [facility],[address] [place] [address] 51090 PLATELET 149 x10EE3/UL Low 150 - 450 [facility] Comment on above: Performed By: #### 2 01085 #### [facility],[address] [place] [address] 32865 Platelet mean volume (Bld) [Entitic vol] 8.2 fL Normal 6.6 - 10.5 [facility] Comment on above: Result Comment: AUTO MATED DIFFERENTIAL Performed By: #### 2 37735 #### [facility],[address] [place] [address] 35027 RBC 4.77 x 10EE6/UL Normal 4.10 - 5.30 [facility] Comment on above: Performed By: #### 2 72089 #### [facility],[address] [place] [address] 96262 WBC 8.6 x 10EE3/UL Normal 4.5 - 10.8 [facility] Comment on above: Performed By: #### 2 35498 #### [facility],[address] [place] [address] 90873 CHEST 1 VIEWon 05-14-2025 CHEST 1 VIEW [place] [address] Patient: TAMIA PANDA Phone#: : 1955 Age: 70 Gender: F Pt. Type: ER Account: [id number] Location: [facility] Ordering: CHENTE SIERRA Exam Date: 05/14/2025/12:19 Family Phys: DYLON MURRIETA Charge Code: 819393 Physician: Norman Order #: [id number] Dose#: PROCEDURE: X-RAY CHEST 1 VIEW COMPARISON: [...] Ray MD on 05/14/2025 at 23:38 Normal [facility] CMP with eGFRon 05-14-2025 AGE 70 years Normal [facility] Comment on above: Performed By: #### 2 60724 #### [facility],[address] [place], [place] [id number] Albumin [Mass/Vol] 2.9 g/dL Low 3.4 - 5.0 [facility] Comment on above: Performed By: #### 2 64928 #### [facility],[address] [place], [place] [address] Albumin/Globulin [Mass ratio] 0.7 {ratio} Low 0.9 - 1.6 [facility] Comment on above: Performed By: #### 2 96541 #### [facility],[address] [place], [place] [id number] ALK PHOS 85 U/L Normal 46 - 116 [facility] Comment on above: Performed By: #### 2 29500 #### [facility],[address] [place] [address] 62752 ALT [Catalytic activity/Vol] 9 U/L Low 16 - 63 [facility] Comment on above: Performed By: #### 2 26923 #### [facility],[address] [place] [address] 35857 Anion gap [Moles/Vol] 14 mmol/L Normal 10 - 20 [facility] Comment on above: Performed By: #### 2 71361 #### [facility],[address] [place] [address] 68937 AST [Catalytic activity/Vol] 16 U/L Normal 13 - 39 [facility] Comment on above: Performed By: #### 2 53698 #### [facility],[address] [place], [place] [id number] B/C RATIO 13 ratio Normal 0 - 30 [facility] Comment on above: Performed By: #### 2 12169 #### [facility],[address] [place] [address] 82579 Bilirubin [Mass/Vol] 1.6 mg/dL High 0.2 - 1.0 [facility] Comment on above: Performed By: #### 2 06665 #### [facility],[address] [place] [address] 97932 Calcium [Mass/Vol] 8.6 mg/dL Normal 8.5 - 10.1 [facility] Comment on above: Performed By: #### 2 07657 #### [facility],[address] [place] [address] 78859 Chloride [Moles/Vol] 106 mmol/L Normal 98 - 107 [facility] Comment on above: Performed By: #### 2 16603 #### [facility],[address] [place] [address] 93896 CMP with eGFR Normal [facility] Comment on above: Result Comment: COMP REHENSIVE METABOLIC PANEL Performed By: #### 2 54901 #### [facility],[address] [place] [address] 75641 CO2 [Moles/Vol] 24.9 mmol/L Normal 21.0 - 32.0 [facility] Comment on above: Performed By: #### 2 64231 #### [facility],[address] [place] [address] 85670 Creatinine [Mass/Vol] 1.27 mg/dL High 0.55 - 1.02 [facility] Comment on above: Performed By: #### 2 30309 #### [facility],[address] [place] [address] 24651 eGFR 42 ML/MINUTE Low 60 - 999 [facility] Comment on above: Performed By: #### 2 76553 #### [facility],[address] [place] [address] 84332 eGFR(AA) 50 ML/MINUTE Low 60 - 999 [facility] Comment on above: Result Comment: ACCO RDING TO THE NATIONAL KIDNEY DISEASE EDUCATION PROGRAM(NKDE), A NORMAL eGFR IS A VALUE GREATER THAN OR EQUAL TO 60 ML/MIN/1.73 SQ METERS. CHRONIC KIDNEY DISEASE: <60mL/MIN/1.73 SQ METERS KIDNEY FAILURE: <15mL/MIN/1.73 SQ METERS THIS TEST SHOULD ONLY BE USED FOR PATIENTS 18 YEARS OF AGE AND OLDER. Performed By: #### 2 91558 #### [facility],[address] [place] [address] 54935 Globulin (S) [Mass/Vol] 3.9 g/dL High 1.5 - 3.8 [facility] Comment on above: Performed By: #### 2 07951 #### [facility],[address] [place] [address] 87061 Glucose [Mass/Vol] 272 mg/dL High 74 - 106 [facility] Comment on above: Performed By: #### 2 96794 #### [facility],[address] [place] [address] 36595 Potassium [Moles/Vol] 3.7 mmol/L Normal 3.5 - 5.1 [facility] Comment on above: Performed By: #### 2 54953 #### [facility],[address] [place] [address] Protein [Mass/Vol] 6.8 g/dL Normal 6.4 - 8.2 [facility] Comment on above: Performed By: #### 2 13451 #### [facility],[address] [place] [address] Sodium [Moles/Vol] 141 mmol/L Normal 136 - 145 [facility] Comment on above: Performed By: #### 2 19590 #### [facility],[address] [place] [address] Urea nitrogen [Mass/Vol] 17 mg/dL Normal 7 - 18 [facility] Comment on above: Performed By: #### 2 41363 #### [facility],[address] [place] [address] CORONAVIRUS (SARS) ANTIGEN T ESTon 05-14-2025 EXTERNAL QC DONE? YES Normal [facility] Comment on above: Performed By: #### 2 93729 #### [facility],[address] [place] [address] INTERNAL CONTROL PASS Normal [facility] Comment on above: Performed By: #### 2 65072 #### [place] [address] SARS ANTIGEN Negative Normal NORMAL: NEGATIVE [facility] Comment on above: Performed By: #### 2 06819 #### [place] [address] SEND TO ? NO Normal [facility] Comment on above: Result Comment: SARS -CoV-2 THIS TEST IS BEING USED UNDER THE FDA EUA PROCEDURE. THIS ASSAY HAS BEEN VALIDATED AT [facility] FOR USE WITH NASAL AND NASOPHARYNGEAL [...] PUBLIC HEALTH AUTHORITIES. Performed By: #### 2 49372 #### [place] [address] CULTURE BLOOD [NANCY]on Microscopic examination of blood, culture CULTURE BLOOD [NANCY] _BLOOD CULTURE_ GO TO [facility] REPORTS AND ATTACHMENTS FOR SCANNED REPORT 05/24/25.1041.DNP.[facility] Comment on above: Performed By: #### 2 26859 ####[place] [address] Microscopic examination of blood, culture CULTURE BLOOD [NANCY] _BLOOD CULTURE_ GO TO [facility] REPORTS AND ATTACHMENTS FOR SCANNED REPORT 05/20/25.1138.DNP.[facility] TE [facility] Comment on above: Performed By: #### 2 93176 ####[facility],[address] [place] [address] 81885 INFLUENZA VIRUS RAPID A/Bon 05-14-2025 INFLUENZA VIRUS [...] TO THREE DAYS. RESULT CRITICAL? NO Normal [facility] Comment on above: Performed By: #### 2 68363 ####[facility],[address] [place] [address] 71781 LACTATEon 05-14-2025 Lactate [Moles/Vol] 2.0 mmol/L Normal 0.4 - 2.0 [facility] Comment on above: Performed By: #### 2 66114 #### [facility],[address] [place] [address] 60962 Lactate [Moles/Vol] 4.0 mmol/L Critically high 0.4 - 2.0 [facility] Comment on above: Result Comment: { CA LLED TO TOM SOTO BY ROOPA AT 1502 { READ BACK BY TOM SOTO RA AT 1458 LACTATE 3 HR NOTIFIED TO: _CHARLES 05/14/25.1500.CWB. . . LACTATE 3 HR NOTIFIED BY: _ROOPA 05/14/25.1500.CWB. . . Performed By: #### 2 15470 #### [facility],[address] [place] [address] 81456 Lactate [Moles/Vol] 3.1 mmol/L High 0.4 - 2.0 [facility] Comment on above: Result Comment: LACT ATE 3 HR NOTIFIED TO: _KOLBY 05/14/25.1306.CWB. . . LACTATE 3 HR NOTIFIED BY: _CWB 05/14/25.1306.CWB. . . Performed By: #### 2 64371 #### [facility],[address] [place] [address] 16171 MAGNESIUMon 05-14-2025 Magnesium [Mass/Vol] 1.3 mg/dL Low 1.8 - 2.4 [facility] Comment on above: Performed By: #### 2 44115 ####[facility],[address] [place] [address] 49322 NT-proBNPon 05-14-2025 Natriuretic peptide B (Bld) [Mass/Vol] 5002 pg/mL High 0 - 125 [facility] Comment on above: Performed By: #### 2 65345 #### [facility],[address] [place] [address] 41019 TROPONINon 05-14-2025 HS TROPONIN 9.5 pg/mL Normal 0.0 - 51.4 [facility] Comment on above: Performed By: #### 2 70491 ####[facility],[address] [place] [address] 37517 TSHon 05-14-2025 TSH Qn 0.67 m[IU]/L Normal 0.35 - 3.74 [facility] Comment on above: Performed By: #### 2 05394 ####[facility],[address] [place] [address] 60484 URINALYSISon 05-14-2025 Amorphous NONE Normal [facility] Comment on above: Performed By: #### 2 58962 ####[facility],[address] [place] [address] 14644 Bacteria 4+ Normal [facility] Comment on above: Performed By: #### 2 41936 ####[facility],[address] [place] [address] 92170 Bilirubin Ql (U) Negative Normal NORMAL: NEGATIVE [facility] Comment on above: Performed By: #### 2 79894 ####[facility],[address] [place] [address] 68124 Casts NONE Normal [facility] Comment on above: Performed By: #### 2 45010 ####[facility],[address] [place] [address] 42651 Clarity (U) very cloudy Normal NORMAL: CLEAR [facility] Comment on above: Performed By: #### 2 39588 ####[facility],[address] [place] [address] 41534 Color (U) yellow Normal NORMAL: YELLOW [facility] Comment on above: Performed By: #### 2 91126 ####[facility],[address] [place] [address] 31612 Crystals LM Nom (Urine sed) NONE Normal [facility] Comment on above: Performed By: #### 2 76429 ####[facility],[address] [place] [address] 39893 Epi Cells OCC Normal [facility] Comment on above: Performed By: #### 2 81166 ####[facility],[address] [place] [address] 24489 Glucose Ql (U) NORM Normal NORMAL: NORMAL [facility] Comment on above: Performed By: #### 2 64825 ####[facility],[address] [place] [address] 50432 Hemoglobin Ql (U) 25 Abnormal NORMAL: NEGATIVE [facility] Comment on above: Performed By: #### 2 58493 ####[facility],[address] [place] [address] 77216 Ketone Negative Normal NORMAL: NEGATIVE [facility] Comment on above: Performed By: #### 2 90659 ####[facility],[address] [place] [address] 32627 Leukocytes 500 Abnormal NORMAL: NEGATIVE [facility] Comment on above: Performed By: #### 2 24609 ####[facility],[address] [place] [address] 75156 Mucous NONE Normal [facility] Comment on above: Performed By: #### 2 48256 ####[facility],[address] [place] [address] 27323 Nitrite Ql (U) Negative Normal NORMAL: NEGATIVE [facility] Comment on above: Performed By: #### 2 47818 ####[facility],[address] [place] [address] pH (U) 5 [pH] Normal NORMAL: 5.0-8.0 [facility] Comment on above: Performed By: #### 2 97904 ####[facility],[address] [place], [place] [id number] Protein Ql (U) 30 Abnormal NORMAL: NEGATIVE [facility] Comment on above: Performed By: #### 2 19024 ####[facility],[address] [place], [place] [address] Rbc 0-5 Normal 0-3/hpf [facility] Comment on above: Performed By: #### 2 39202 ####[facility],[address] [place], [place] [address] Sp [place] 1.015 Normal NORMAL: 1.010-1.030 [facility] Comment on above: Performed By: #### 2 31572 ####[facility],[address] [place], [place] [address] Specimen Type R Normal [facility] Comment on above: Performed By: #### 2 81260 ####[facility],[address] [place] [address] Urinalysis dipstick W Reflex Microscopic panel (U) SEE BELOW Normal [facility] Comment on above: Result Comment: MICR OSCOPIC Performed By: #### 2 45503 ####[facility],[address] [place] [address] Urobilinog NORM Normal NORMAL: NORMAL [facility] Comment on above: Performed By: #### 2 84437 ####[facility],[address] [place] [address] WBC (U) [#/Vol] /uL Normal 0-5/hpf [facility] Comment on above: Performed By: #### 2 56456 ####[facility],[address] [place] [address] Yeast NONE Normal [facility] Comment on above: Performed By: #### 2 23727 ####[facility],[address] [place] [address] URINE CULTURE [CCL]on 2024 Bacteria identified Cx [...] and its performance characteristics determined by the [facility] [place] ([facility]). It has not been cleared or approved by the FDA. [facility] is regulated under CLIA as qualified to perform high-complexity testing. This test is used for clinical purposes. It should not be regarded as investigational or for research. SOURCE: Urine (Nonspecific) [facility] [place] [address] [place] [address] Bo Rosales III, M.D. [id number] Normal [facility] Comment on above: Performed By: #### 2 45550 ####[facility],[address] [place] [address] 42725 Absolute lymphocyte countOrd ered By: Dylon Murrieta on 04-13-2025 Lymphocytes Auto (Unsp spec) [#/Vol] 1.15 10*3/uL 0.83-4.51 [facility] Absolute neutrophil countOrd ered By: Dylon Murrieta on 04-13-2025 Neutrophils (Bld) [#/Vol] 4.1 10*3/uL 2.0-7.7 [facility] Anion gap in Serum or Plasma Ordered By: Dylon Murrieta on 04-13-2025 Anion gap [Moles/Vol] 13 mmol/L 5-15 [facility] Automated lymphocyte count a s percentage of total leukocytesOrdered By: Dylon Murrieta 04-13-2025 Lymphocytes/100 WBC Auto (Unsp spec) 19.1 % 19-41 [facility] BUN/creatinine ratioOrdered By: Dylon Murrieta 04-13-2025 Urea nitrogen/Creatinine [Mass ratio] 13.4 mg/mg 10-20 [facility] Basophil percentageOrdered B y: Dylon Murrieat on 04-13-2025 Basophils/100 WBC (Bld) 0.5 % 0-[address] [facility] Bilirubin, totalOrdered By: Dylon Murrieta 04-13-2025 Bilirubin [Mass/Vol] 0.84 mg/dL 0.00-1.30 [facility] Calculated very low density lipoprotein (VLDL) cholesterol measurementOrdered By: Dylon Murrieta on 04-13-2025 Calculated very low density lipoprotein (VLDL) cholesterol measurement 34 mg/dL 5-40 [facility] Carbon dioxide, total [Moles /volume] in Central venous bloodOrdered By: Dylon Murrieta 04-13-2025 CO2 [Moles/Vol] 20.7 mmol/L Low 21.0-32.0 [facility] Chloride assayOrdered By: Jonah Murrieta on 04-13-2025 Chloride [Moles/Vol] 107 mmol/L 98-108 [facility] Eosinophil percentageOrdered By: Dylon Murrieta 04-13-2025 Eosinophils/100 WBC (Bld) 2.8 % 0-5 [facility] Erythrocyte distribution wid th ratioOrdered By: Dylon Murrieta 04-13-2025 Erythrocyte distribution width (RBC) [Ratio] 15.3 % High 11.6-14.6 [facility] Erythrocyte distribution wid th standard deviationOrdered By: Dylon Murrieta 04-13-2025 Erythrocyte distribution width (RBC) [Ratio] 50.3 fl High 35.1-43.9 [facility] Glomerular filtration rate ( GFR) estimation/1.73 sq m using serum, plasma, or whole bOrdered By: Dylon Murrieta on 04-13-2025 GFR/1.73 sq M.predicted among non-blacks MDRD (S/P/Bld) [Vol rate/Area] 49 mL/min/{1.73_m2} Low >60 [facility] Comment on above: mL/min/1.73m2 CKD-EP I Creatinine Equation (2020) Hematocrit Auto (Bld) [Volum e fraction]Ordered By: Dylon Murrieta 04-13-2025 Hematocrit (Bld) [Volume fraction] 40.7 % 37-47 [facility] Hemoglobin A1c percentageOrd ered By: Dylon Murrieta 04-13-2025 HbA1c (Bld) [Mass fraction] 7.8 % High <5.7 [facility] Comment on above: Normal < 5.7 % Predi abetic 5.7 - 6.4 % Diabetic >or= 6.5 % Please note range changes. Hemoglobin measurementOrdere d By: Dylon Murrieta on 04-13-2025 Hemoglobin (Bld) [Mass/Vol] 12.9 g/dL 12.0-15.0 [facility] Immature granulocytes/100 WB C Auto (Bld)Ordered By: Dylon Murrieta 04-13-2025 Immature granulocytes/100 WBC (Bld) 0.700 % 0.0-0.9 [facility] Comment on above: IG% - Immature Granu locytes (promyelocytes, myelocytes and metamyelocytes) > 1% indicates that a LEFT SHIFT is Present. LDL calc ser/plasOrdered By: Dylon Murrieta on 04-13-2025 Cholesterol in LDL [Mass/Vol] 43 mg/dL [facility] Comment on above: Fmtvwwbxvy=659-529 m g/dL & Higher Kpkv=722 mg/dL or greater Laboratory - Chemistry and C hemistry - challengeOrdered By: Dylon Murrieta on 04-13-2025 AST [Catalytic activity/Vol] 21 U/L <32 [facility] MCV (mean corpuscular volume ) determinationOrdered By: Dylon Murrieta on 04-13-2025 MCV (RBC) [Entitic vol] 91.3 fL 81-99 [facility] Mean corpuscular hemoglobin (MCH) determinationOrdered By: Dylon Murrieta 04-13-2025 MCH (RBC) [Entitic mass] 28.9 pg 27.0-32.0 [facility] Mean corpuscular hemoglobin concentration (MCHC) determinationOrdered By: Dylon Murrieta on 04-13-2025 MCHC (RBC) [Mass/Vol] 31.7 g/dL Low 32-36 [facility] Mean platelet volume determi nationOrdered By: Dylon Murrieta 04-13-2025 Platelet mean volume (Bld) [Entitic vol] 10.7 fL 6.2-12.0 [facility] Monocyte percentageOrdered B y: Dylon Murrieta on 04-13-2025 Monocytes/100 WBC (Bld) 9.6 % 0-[address] [facility] Neutrophil percentageOrdered By: Dylon Murrieta on 04-13-2025 Neutrophils/100 WBC (Bld) 67.3 % 47-70 [facility] Nucleated red blood cell per centageOrdered By: Dylon Murrieta on 04-13-2025 Nucleated RBC/100 WBC (Bld) [Ratio] 0 % 0-5 [facility] Platelet countOrdered By: Jonah Murrieta on 04-13-2025 Platelets (Bld) [#/Vol] 171 10*3/uL 150-450 [facility] Potassium measurement (mass/ volume)Ordered By: Dylon Murrieta on 04-13-2025 Potassium (Unsp spec) [Mass/Vol] 4.2 mmol/L 3.3-5.1 [facility] RBC Auto (Bld) [#/Vol]Ordere d By: Dylon Murrieta on 04-13-2025 RBC (Bld) [#/Vol] 4.46 10*6/uL 4.2-5.4 [facility] Screening total cholesterol/ high density lipoprotein (HDL) cholesterol ratioOrdered By: Dylon Murrieta 04-13-2025 Cholesterol.total/Ellen sterol in HDL [Mass ratio] 3.10 {ratio} [facility] Serum creatinine measurement (mass/volume)Ordered By: Dylon Murrieta 04-13-2025 Creatinine [Mass/Vol] 1.20 mg/dL 0.70-1.20 [facility] Serum globulin measurementOr dered By: Dylon Murrieta 04-13-2025 Globulin (S) [Mass/Vol] 3.4 g/dL 2.2-4.[address] [facility] Serum glucose measurement (m ass/volume)Ordered By: Dylon Murrieta 04-13-2025 Glucose [Mass/Vol] 249 mg/dL High 70-99 [facility] Serum or plasma alanine park otransferase (ALT) measurementOrdered By: Dylon Murrieta 04-13-2025 ALT [Catalytic activity/Vol] 8 U/L <35 [facility] Serum or plasma albumin mariel urement (mass/volume)Ordered By: Dylon Murrieta 04-13-2025 Albumin [Mass/Vol] 3.6 g/dL 3.4-4.8 [facility] Serum or plasma albumin/glob ulin mass ratioOrdered By: Dylon Murrieta 04-13-2025 Albumin/Globulin [Mass ratio] 1.1 {ratio} 0.9-2.4 [facility] Serum or plasma alkaline diane sphatase measurementOrdered By: Dylon Murrieta 04-13-2025 ALP [Catalytic activity/Vol] 89 U/L 35-104 [facility] Serum or plasma calcium mariel urement (mass/volume)Ordered By: Dylon Murrieta 04-13-2025 Calcium [Mass/Vol] 8.8 mg/dL 7.6-11.0 [facility] Serum or plasma cholesterol in HDL measurement (mass/volume)Ordered By: Dylon Murrieta on 04-13-2025 Cholesterol in HDL [Mass/Vol] 37 mg/dL Low >40 [facility] Comment on above: National Cholesterol Education Program (NCEP) guidelines:<40 mg/dL: Low HDL-cholesterol (major risk factor for CHD)>= 60 mg/dL: High HDL-cholesterol (negative risk factor for CHD)HDL-cholesterol is affected by a number of factors, e.g. smoking, exercise, hormones, sex and age. Serum or plasma cholesterol measurement (mass/volume)Ordered By: Dylon Murrieta on 04-13-2025 Cholesterol [Mass/Vol] 114 mg/dL <201 [facility] Comment on above: Cholesterol level, D esirable <200 mg/dLBorderline high cholesterol 200-239 mg/dLHigh cholesterol >=240 mg/dLRecommendations of the NCEP Adult Treatment Panel for the following risk-cutoff thresholds for the [place] population. Serum or plasma urea nitroge n measurement (mass/volume)Ordered By: Dylon Murrieta 04-13-2025 Urea nitrogen [Mass/Vol] 16 mg/dL 4-19 [facility] Sodium levelOrdered By: Dylon Murrieta 04-13-2025 Sodium [Moles/Vol] 141 mmol/L 133-145 [facility] TSH DL <= 0.005 mIU/L QnOrde red By: Dylon Murrieta 04-13-2025 TSH Qn 1.710 uIU/mL 0.300-4.200 [facility] Total proteinOrdered By: Dylon Murrieta 04-13-2025 Protein [Mass/Vol] 7.0 g/dL 5.9-8.4 [facility] Triglycerides measurementOrd ered By: Dlyon Murrieta 04-13-2025 Triglyceride [Mass/Vol] 170 mg/dL <199 [facility] [facility] Comment on above: The drugs N-Acetylcy steine and Metamizole may falsely depress this assay. Normal range: <150 mg/dLBorderline High: 150-199 mg/dLHigh: 200-499 mg/dLVery High: >500 mg/dL White blood cell (WBC) count Ordered By: Dylon Murrieta 04-13-2025 WBC (Bld) [#/Vol] 6.0 10*3/uL 4.4-11.0 [facility] GLUCOSE BY METERon Glucose [Mass/Vol] 162 mg/dL High 70 [facility] Comment on above: Order Comment: Relea to patient->Automatic Glucose [Mass/Vol] 95 mg/dL Invalid Interpretation Code [facility] Comment on above: Order Comment: Relea se to patient->Automatic Absolute lymphocyte countOrd ered By: Lynne Le on 12-04-2024 Lymphocytes Auto (Unsp spec) [#/Vol] 0.96 10*3/uL 0.83-4.51 [facility] Absolute neutrophil countOrd ered By: Lynne Le on 12-04-2024 Neutrophils (Bld) [#/Vol] 6.2 10*3/uL 2.0-7.7 [facility] Anion gap in Serum or Plasma Ordered By: Lynne Le on 12-04-2024 Anion gap [Moles/Vol] 12 mmol/L 5-15 [facility] Automated lymphocyte count a s percentage of total leukocytesOrdered By: Lynne Le on 12-04-2024 Lymphocytes/100 WBC Auto (Unsp spec) 11.9 % Low 19-41 [facility] BUN/creatinine ratioOrdered By: Lynne Le on 12-04-2024 Urea nitrogen/Creatinine [Mass ratio] 10.6 mg/mg 10-20 [facility] Basophil percentageOrdered B y: Lynne Le on 12-04-2024 Basophils/100 WBC (Bld) 0.1 % 0-[address] [facility] CBC + DIFFon 12-04-2024 Baso # 0.01 x10EE3/UL Normal 0.00 - 0.10 [facility] Comment on above: Performed By: #### 2 83909 ####[facility],[address] [place] [address] 79681 Basophils/100 WBC (Bld) 0.1 % Normal 0.0 - 2.0 [facility] Comment on above: Performed By: #### 2 41943 ####[facility],[address] [place] [address] CBC + DIFF Normal [facility] Comment on above: Result Comment: CBC- COMPLETE BLOOD COUNT Performed By: #### 2 06664 ####[facility],[address] [place] [address] 28039 EO # 0.22 x10EE3/UL Normal 0.00 - 0.50 [facility] Comment on above: Performed By: #### 2 60972 ####[facility],[address] [place] [address] Eosinophils/100 WBC (Bld) 3.1 % Normal 0.0 - 7.0 [facility] Comment on above: Performed By: #### 2 39172 ####[facility],[address] [place] [address] Erythrocyte distribution width (RBC) [Ratio] 13.2 % Normal 12.0 - 15.6 [facility] Comment on above: Performed By: #### 2 34818 ####[facility],[address] [place] [address] Hematocrit (Bld) [Volume fraction] 39.5 % Normal 34.0 - 46.0 [facility] Comment on above: Performed By: #### 2 93491 ####[facility],[address] [place], [place] [id number] Hemoglobin (Bld) [Mass/Vol] 13.7 g/dL Normal 12.0 - 16.0 [facility] Comment on above: Performed By: #### 2 06296 ####[facility],[address] [place] [address] 76585 Lymph # 0.79 x10EE3/UL Low 0.80 - 2.80 [facility] Comment on above: Performed By: #### 2 21101 ####[facility],[address] [place], [place] [id number] Lymphocytes/100 WBC (Bld) 11.3 % Low 20.0 - 45.0 [facility] Comment on above: Performed By: #### 2 99456 ####[facility],[address] [place] [address] MANUAL DIFF N/A Normal [facility] Comment on above: Performed By: #### 2 39852 ####[facility],[address] [place] [address] MCH (RBC) [Entitic mass] 33 pg Normal 27 - 33 [facility] Comment on above: Performed By: #### 2 61248 ####[facility],[address] [place] [address] MCHC 35 X10 3 Normal 32 - 36 [facility] Comment on above: Performed By: #### 2 20196 ####[facility],[address] [place] [address] MCV (RBC) [Entitic vol] 95 fL Normal 80 - 99 [facility] Comment on above: Performed By: #### 2 91042 ####[facility],[address] [place] [address] [place] # 0.54 x10EE3/UL Normal 0.20 - 1.00 [facility] Comment on above: Performed By: #### 2 35940 ####[facility],[address] [place] [address] MONOS % 7.6 % Normal 0.0 - 10.0 [facility] Comment on above: Performed By: #### 2 57250 ####[facility],[address] [place] [address] Morphology Prashanth (Bld) [Interp] N/A Normal [facility] Comment on above: Performed By: #### 2 81985 ####[facility],[address] [place] [address] Neut # 5.47 x10EE3/UL Normal 1.50 - 7.10 [facility] Comment on above: Performed By: #### 2 01300 ####[facility],[address] [place] [address] 53705 Neutrophils/100 WBC (Bld) 77.9 % High 46.0 - 76.0 [facility] Comment on above: Performed By: #### 2 44891 ####[facility],[address] [place] [address] 87790 PLATELET 175 x10EE3/UL Normal 150 - 450 [facility] Comment on above: Performed By: #### 2 49852 ####[facility],[address] [place] [address] 44964 Platelet mean volume (Bld) [Entitic vol] 8.4 fL Normal 6.6 - 10.5 [facility] Comment on above: Result Comment: AUTO MATED DIFFERENTIAL Performed By: #### 2 96881 ####[facility],[address] [place] [address] 06897 RBC 4.17 x 10EE6/UL Normal 4.10 - 5.30 [facility] Comment on above: Performed By: #### 2 41336 ####[facility],[address] [place] [address] 59262 WBC 7.0 x 10EE3/UL Normal 4.5 - 10.8 [facility] Comment on above: Performed By: #### 2 06420 ####[facility],[address] [place] [address] 42331 CMP with eGFRon 12-04-2024 AGE 69 years Normal [facility] Comment on above: Performed By: #### 2 99978 #### [facility],[address] [place] [address] 48194 Albumin [Mass/Vol] 3.4 g/dL Normal 3.4 - 5.0 [facility] Comment on above: Performed By: #### 2 83743 #### [facility],[address] [place] [address] 11230 Albumin/Globulin [Mass ratio] 0.9 {ratio} Normal 0.9 - 1.6 [facility] Comment on above: Performed By: #### 2 01901 #### [facility],[address] [place] [address] 02831 ALK PHOS 75 U/L Normal 46 - 116 [facility] Comment on above: Performed By: #### 2 79269 #### [facility],[address] [place] [address] 94726 ALT [Catalytic activity/Vol] 14 U/L Low 16 - 63 [facility] Comment on above: Performed By: #### 2 55163 #### [facility],[address] [place] [address] 02859 Anion gap [Moles/Vol] 14 mmol/L Normal 10 - 20 [facility] Comment on above: Performed By: #### 2 26970 #### [facility],[address] [place] [address] 53344 AST [Catalytic activity/Vol] 14 U/L Normal 13 - 39 [facility] Comment on above: Performed By: #### 2 75031 #### [facility],[address] [place] [address] 02172 B/C RATIO 7 ratio Normal 0 - 30 [facility] Comment on above: Performed By: #### 2 28531 #### [facility],[address] [place] [address] 34443 Bilirubin [Mass/Vol] 0.6 mg/dL Normal 0.2 - 1.0 [facility] Comment on above: Performed By: #### 2 13919 #### [facility],[address] [place] [address] 96664 Calcium [Mass/Vol] 8.4 mg/dL Low 8.5 - 10.1 [facility] Comment on above: Performed By: #### 2 35227 #### [facility],[address] [place] [address] 53015 Chloride [Moles/Vol] 107 mmol/L Normal 98 - 107 [facility] Comment on above: Performed By: #### 2 10455 #### [facility],[address] [place] [address] 44935 CMP with eGFR Normal [facility] Comment on above: Result Comment: COMP REHENSIVE METABOLIC PANEL Performed By: #### 2 50228 #### [facility],[address] [place] [address] 65238 CO2 [Moles/Vol] 28.5 mmol/L Normal 21.0 - 32.0 [facility] Comment on above: Performed By: #### 2 01546 #### [facility],[address] [place] [address] 90264 Creatinine [Mass/Vol] 1.05 mg/dL High 0.55 - 1.02 [facility] Comment on above: Performed By: #### 2 23387 #### [facility],[address] [place] [address] 68619 eGFR 52 ML/MINUTE Low 60 - 999 [facility] Comment on above: Performed By: #### 2 44303 #### [facility],[address] [place] [address] 70790 GFR/1.73 sq M.predicted among non-blacks MDRD (S/P/Bld) [Vol rate/Area] mL/min/{1.73_m2} Normal 60 - 999 [facility] Comment on above: Result Comment: ACCO RDING TO THE NATIONAL KIDNEY DISEASE EDUCATION PROGRAM(NKDE), A NORMAL eGFR IS A VALUE GREATER THAN OR EQUAL TO 60 ML/MIN/1.73 SQ METERS. CHRONIC KIDNEY DISEASE: <60mL/MIN/1.73 SQ METERS KIDNEY FAILURE: <15mL/MIN/1.73 SQ METERS THIS TEST SHOULD ONLY BE USED FOR PATIENTS 18 YEARS OF AGE AND OLDER. Performed By: #### 2 85470 #### [facility],[address] [place] [address] 42744 Globulin (S) [Mass/Vol] 4.0 g/dL High 1.5 - 3.8 [facility] Comment on above: Performed By: #### 2 57694 #### [facility],[address] [place] [address] 67815 Glucose [Mass/Vol] 109 mg/dL High 74 - 106 [facility] Comment on above: Performed By: #### 2 08189 #### [facility],[address] [place] [address] 50233 Potassium [Moles/Vol] 3.0 mmol/L Low 3.5 - 5.1 [facility] Comment on above: Performed By: #### 2 71347 #### [facility],[address] [place] [address] 39167 Protein [Mass/Vol] 7.4 g/dL Normal 6.4 - 8.2 [facility] Comment on above: Performed By: #### 2 24467 #### [facility],[address] [place] [address] 05016 Sodium [Moles/Vol] 146 mmol/L High 136 - 145 [facility] Comment on above: Performed By: #### 2 69666 #### [facility],[address] [place] [address] 97477 Urea nitrogen [Mass/Vol] 7 mg/dL Normal 7 - 18 [facility] Comment on above: Performed By: #### 2 44021 #### [facility],[address] [place] [address] 59269 Carbon dioxide, total [Moles /volume] in Central venous bloodOrdered By: Lynne Le on 12-04-2024 CO2 [Moles/Vol] 23.9 mmol/L 21.0-32.0 [facility] Chloride assayOrdered By: Silvia Le on 12-04-2024 Chloride [Moles/Vol] 107 mmol/L 98-108 [facility] ED MED ADMINISTRATION DETAIL on 12-04-2024 ED MED ADMINISTRATION DETAIL Process Mold Technician Medication Administration Record [address] [address] [id number] 12/04/2024 Patient: TAMIA PANDA Sex: Female : 1955 Age: 69y MEASUREMENTS: Wt: 104.3 kg ALLERGIES: Unable to state. Medication Ordered Medication Administration Date/Time HYDROmorphone 13:08 12/04 HYDROmorphone (Dilaudid) IVP 0.5 mg [...] mL given. (Lot#: [id number], expiration date: 12/11/2026, director enterprise systems: 13:12/04/2024 ERT > 7yr and older Edai). Given in the left deltoid. Allergies verified and Wesley Quiros R.N. 0.5 mL (NOW x1) confirmed 5 rights. Information reviewed with patient. Verbalizes Scanned understanding. Vaccine information statement (04/27/2021) provided to the patient. - 13:11 Wesley Quiros R.N. 1 of 2 Process Mold Technician Medication Ordered Medication Administration Date/Time HYDROmorphone 14:16 [...] Wesley Quiros R.N. 2 of 2 Normal [facility] ED NURSES CLINICAL NOTEon ED NURSES CLINICAL NOTE Nurse Narrative Nurse Clinical Narrative [address] [place] [address] [id number] 12/04/2024 Patient: TAMIA PANDA Sex: Female : 1955 Age: 69y Primary Insurance: [facility] DUAL OUTPATIENT Policy Number: [id number] Group Number: [id number] Subscriber: Other Secondary Insurance: MEDICAID OUTPATIENT Policy Number: [id number] Subscriber: Other Disposition: Transfer to [facility] Disposition Decision Time: 12:48 12/04/2024 Departure [...] possible sources of infection. -- 12:47 12/04/24 ALEXANDREAT Prath Luna R.N. Measurements: 12:44 12/04/24 Wt: 104.3 [...] Luna R.N. Atrial Fibrillation -- 12:41 12/04/24 EDT Parth Luna R.N. Congestive Heart Failure -- [...] (12:42 12/04/2024). (Dr. Peterson is speaking with Yani Almazan.). -- 12:43 12/04/24 EDT [facility] 12:56 12/04/24. Site #1 started via IV in the left antecubital space with a 20g angiocath with aseptic technique and good blood return; 1 attempt. Blood drawn: rainbow set tube(s). Labeled in the presence of the patient and sent to the lab. Saline lock flushed with 5 mL saline. -- 12:56 12/04/24 ALEXANDREAT Wesley Quiros R.N. 13:02 12/04/24. Transfer request (13:12/04/2024). (Spoke with Sudhir from [facility]. Gave ETA of 35 minutes.). -- 13:21 12/04/24 ALEXANDREAT [facility] 13:08 12/04/24. Zofran IVP 4 mg [...] 12/04/24 EDT (more content not included)... Normal [facility] ED ORDER SHEET (CPOE ONLY)on 12-04-2024 ED ORDER SHEET (CPOE ONLY) Order Sheet Order Sheet [place] [id number] [place] [address] [id number] 12/04/2024 Patient: TAMIA PANDA Sex: Female : [...] (NOW x1) Charlie Peterson, 12/04/2024 12/04/2024 Wesley Bergeron, R.N. R.N. HYDROmorphone (Dilaudid) 14:13 12/04/2024 14:14 [...] 12/04/2024 Wesley Lyles Jamie Burgett, D.O. R.N. RMagdaNMagda CMP Stat Stat 12:40 12/04/2024 12:41 12/04/2024 13:34 12/04/2024 Wesley Lyles Jamie Burgett, D.O. R.NMagda RMagdaNMagda DIAGNOSTIC STUDY ORDERS Order Description Priority Entered Acknowledged Completed STAFF ORDERS Order Description Priority Entered Acknowledged Collected Completed IV Saline Lock 12:40 12/04/2024 12:41 12/04/2024 13:34 12/04/2024 Wesley Lyles Jamie Burgett, D.O. R.N. R.NMagda [Electronically signed by Charlie Peterson D.O. (12/04/2024 20:48 EDT)] 2 of 2 Normal [facility] ED PHYSICIAN CLINICAL REPORT on 12-04-2024 ED PHYSICIAN CLINICAL REPORT Narrative Physician Clinical [address] [address] [phone] 12/04/2024 Patient: TAMIA PANDA Sex: Female : 1955 Age: 69y Primary Insurance: [employer] [facility] DUAL OUTPATIENT Policy Number: [id number] Group Number: [id number] Subscriber: Other Secondary Insurance: MEDICAID OUTPATIENT Policy Number: [id number] Subscriber: Other Disposition: Transfer to [facility] Disposition Decision Time: 12:48 12/04/2024 Departure [...] 1.50 - 7.10 Final EDT 12/04/2024 13:27 [place] # 0.54 x10/UL 0.20 - 1.00 Final [...] normal 13 (more content not included)... Normal [facility] ED [facility] BILL 12-04-2024 ED [facility] [address] [place] [address] [phone] 12/04/2024 Patient: TAMIA PANDA Sex: Female : 1955 Age: 69y Item Facility Professional Category Description Code Code Quantity Fee Total Nurse/E/M EMERGENCY 969092 1 $0.00 $0.00 DEPARTMENT VISIT HIGH/URGENT SEVERITY (57742-32) Nurse/IV/IM/Infusions IVP additional 262815 1 $0.00 $0.00 push (77178) Nurse/IV/IM/Infusions IVP initial 985868 1 $0.00 $0.00 (10830) Nurse/IV/IM/Infusions IVP same med 550584 1 $0.00 $0.00 (31 min apart) (79669) Nurse/Procedures One vaccine 134557 1 $0.00 $0.00 (70703) Grand Total $0.00 Providers Charlie Peterson D.O. 1 of 2 [facility] Chief Complaint BURN. Principal Diagnosis Multiple second [...] than 10% (approximately). 2 of 2 Normal [facility] ED VISIT SUMMARYon ED VISIT SUMMARY Visit Overview Visit Overview [place] [address] [facility] [place] [address] [id number] 12/04/2024 Patient: TAMIA PANDA Sex: Female : [...] THAN 10% (APPROXIMATELY) 3 of 3 Normal [facility] ED VITALS FLOW SHEETon 12-04 ED VITALS FLOW SHEET Vitals Vital Sign Flow Sheet [facility] [address] [place] [address] [phone] 12/04/2024 Patient: TAMIA PANDA Sex: Female : [...] 98.8 F 7 2 of 2 Normal [facility] Eosinophil percentageOrdered By: Lynne Le on 12-04-2024 Eosinophils/100 WBC (Bld) 3.2 % 0-5 [facility] Erythrocyte distribution wid th ratioOrdered By: Lynne Le on 12-04-2024 Erythrocyte distribution width (RBC) [Ratio] 13.2 % 11.6-14.6 [facility] Erythrocyte distribution wid th standard deviationOrdered By: Lynne Le on 12-04-2024 Erythrocyte distribution width (RBC) [Entitic vol] 47.1 fL High 35.1-43.9 [facility] Erythrocyte distribution width (RBC) [Ratio] 47.1 fl High 35.1-43.9 [facility] Estimation of creatinine frances aranceOrdered By: Lynne Le on 12-04-2024 Estimated Creatinine Clearance Calc 60.09 ml/min 50-250 [facility] GFR/1.73 sq M.predicted manny g non-blacks MDRD (S/P/Bld) [Vol rate/Area]Ordered By: Lynne Le on 12-04-2024 Estimated GFR (MDRD) Non-Af Amer 71 >60 [facility] Comment on above: mL/min/1.73m2 CKD-EP I Creatinine Equation (2020) Glomerular filtration rate ( GFR) estimation/1.73 sq m using serum, plasma, or whole bOrdered By: Lynne Le on 12-04-2024 GFR/1.73 sq M.predicted among non-blacks MDRD (S/P/Bld) [Vol rate/Area] 71 mL/min/{1.73_m2} >60 [facility] Comment on above: mL/min/1.73m2 CKD-EP I Creatinine Equation (2020) Hematocrit Auto (Bld) [Volum e fraction]Ordered By: Lynne Le on 12-04-2024 Hematocrit (Bld) [Volume fraction] 39.9 % 37-47 [facility] Hemoglobin measurementOrdere d By: Lynne Le on 12-04-2024 Hemoglobin (Bld) [Mass/Vol] 12.9 g/dL 12.0-15.0 [facility] Immature granulocytes/100 WB C Auto (Bld)Ordered By: Lynne Le on 12-04-2024 Immature granulocytes/100 WBC (Bld) 0.500 % 0.0-0.9 [facility] Comment on above: IG% - Immature Granu locytes (promyelocytes, myelocytes and metamyelocytes) > 1% indicates that a LEFT SHIFT is Present. Lymphocytes Auto (Unsp spec) [#/Vol]Ordered By: Lynne Le on 12-04-2024 Lymphocytes (Bld) [#/Vol] 0.96 10*3/uL 0.83-4.51 [facility] Lymphocytes/100 WBC Auto (Un sp spec)Ordered By: Lynne Le on 12-04-2024 Lymphocytes/100 WBC (Bld) 11.9 % Low 19-41 [facility] MCV (mean corpuscular volume ) determinationOrdered By: Lynne Le on 12-04-2024 MCV (RBC) [Entitic vol] 97.1 fL 81-[address] [facility] Mean corpuscular hemoglobin (MCH) determinationOrdered By: Lynne Le on 12-04-2024 MCH (RBC) [Entitic mass] 31.4 pg 27.0-32.0 [facility] Mean corpuscular hemoglobin concentration (MCHC) determinationOrdered By: Lynne Le on 12-04-2024 MCHC (RBC) [Mass/Vol] 32.3 g/dL 32-36 [facility] Mean platelet volume determi nationOrdered By: Lynne Le on 12-04-2024 Platelet mean volume (Bld) [Entitic vol] 10.4 fL 6.2-12.0 [facility] Monocyte percentageOrdered B y: Lynne Le on 12-04-2024 Monocytes/100 WBC (Bld) 7.9 % 0-[address] [facility] Neutrophil percentageOrdered By: Lynne Le on 12-04-2024 Neutrophils/100 WBC (Bld) 76.4 % High 47-70 [facility] No Panel InformationOrdered By: Lynne Le on 12-04-2024 Troponin T High Sensitivity 16 ng/L High <14 [facility] Nucleated red blood cell per centageOrdered By: Lynne Le on 12-04-2024 Nucleated RBC/100 WBC (Bld) [Ratio] 0 % 0-5 [facility] Platelet countOrdered By: Silvia Le on 12-04-2024 Platelets (Bld) [#/Vol] 181 10*3/uL 150-450 [facility] Potassium (Unsp spec) [Mass/ Vol]Ordered By: Lynne Le on 12-04-2024 Potassium [Moles/Vol] 3.3 mmol/L 3.3-5.1 [facility] Potassium measurement (mass/ volume)Ordered By: Lynne Le on 12-04-2024 Potassium (Unsp spec) [Mass/Vol] 3.3 mmol/L 3.3-5.1 [facility] RBC Auto (Bld) [#/Vol]Ordere d By: Lynne Le on 12-04-2024 RBC (Bld) [#/Vol] 4.11 10*6/uL Low 4.2-5.4 [facility] Serum creatinine measurement (mass/volume)Ordered By: Lynne Le on 12-04-2024 Creatinine [Mass/Vol] 0.89 mg/dL 0.70-1.20 [facility] Serum glucose measurement (m ass/volume)Ordered By: Lynne Le on 12-04-2024 Glucose [Mass/Vol] 112 mg/dL High 70-99 [facility] Serum or plasma calcium mariel urement (mass/volume)Ordered By: Lynne Le on 12-04-2024 Calcium [Mass/Vol] 8.4 mg/dL 7.6-11.0 [facility] Serum or plasma urea nitroge n measurement (mass/volume)Ordered By: Lynne eL on 12-04-2024 Urea nitrogen [Mass/Vol] 9 mg/dL 4-19 [facility] Sodium levelOrdered By: Lynne Le on 12-04-2024 Sodium [Moles/Vol] 144 mmol/L 133-145 [facility] Troponin T.cardiac High sens itivity method [Mass/Vol]Ordered By: Lynne Le on 12-04-2024 Troponin T High Sensitivity 4 Hour 18 ng/L High <14 [facility] Troponin T High Sensitivity 2 Hour 18 ng/L High <14 [facility] Troponin T.cardiac [Mass/vol ume] in Serum or Plasma by High sensitivity methodOrdered By: Lynne Le on 12-04-2024 Troponin T.cardiac High sensitivity method [Mass/Vol] 18 ng/L High <14 [facility] Troponin T.cardiac High sensitivity method [Mass/Vol] 18 ng/L High <14 [facility] White blood cell (WBC) count Ordered By: Lynne Le on 12-04-2024 WBC (Bld) [#/Vol] 8.1 10*3/uL 4.4-11.0 [facility] CNOVon 10-28-2024 CNOV Office Visit (PODIWS ) -------- TAMIA PANDA ([id number]) 1955 F [facility] Date Time Provider Department 10/28/24 1:30 PM [...] Objective: Patient presents to clinic ambulating in [facility] Vasc: DP and PT pulses are [...] in toe (more content not included)... Normal [facility] [id number] DOrdered By: Callie Murrieta on 10-14-2024 Vitamin D 25-Hydroxy 46.2 ng/mL [facility] Comment on above: Vitamin D 25(OH) Sta tus Range Deficiency <20 ng/mL (50nmol/L) Insufficiency 20 - 30 ng/mL (50 - 75 nmol/L) Sufficiency 30 - 100 ng/mL (75 - 250 nmol/L) Toxicity >100 ng/mL (>250 nmol/L) Absolute neutrophil countOrd ered By: Dylon Murrieta on 10-14-2024 Neutrophils (Bld) [#/Vol] 4.8 10*3/uL 2.0-7.7 [facility] Albumin to globulin ratioOrd ered By: Dylon Murrieta on 10-14-2024 Albumin/Globulin [Mass ratio] 0.8 {ratio} Low 0.9-2.4 [facility] Basophil percentageOrdered B y: Dylon Murrieta on 10-14-2024 Basophils/100 WBC (Bld) 0.6 % 0-1 [facility] Bilirubin, totalOrdered By: Dylon Murrieta on 10-14-2024 Bilirubin [Mass/Vol] 0.80 mg/dL 0.20-1.00 [facility] Comment on above: For patients on eltr ombopag therapy, use of Dimension [place] TBIL is not recommended. Blood urea nitrogen (BUN)/cr eatinine ratioOrdered By: Dylon Murrieta on 10-14-2024 Urea nitrogen/Creatinine [Mass ratio] 16.2 mg/mg 10-20 [facility] Carbon dioxide measurementOr dered By: Dylon Murrieta on 10-14-2024 CO2 [Moles/Vol] 25.0 mmol/L 21.0-32.0 [facility] Chloride measurementOrdered By: Dylon Murrieta on 10-14-2024 Chloride [Moles/Vol] 108 mmol/L High 98-107 [facility] Eosinophil percentageOrdered By: Dylon Murrieta on 10-14-2024 Eosinophils/100 WBC (Bld) 2.6 % 0-5 [facility] Erythrocyte distribution wid th ratioOrdered By: Dylon Murrieta on 10-14-2024 Erythrocyte distribution width (RBC) [Ratio] 13.7 % 11.6-14.6 [facility] Erythrocyte distribution wid th standard deviationOrdered By: Dylon Murrieta on 10-14-2024 Erythrocyte distribution width (RBC) [Entitic vol] 48.7 fL High 35.1-43.9 [facility] Estimated glomerular filtrat ion rate (GFR) AmericanOrdered By: Dylon Murrieta on 10-14-2024 Estimated GFR (MDRD) Amer 59 mL/min Low >60 [facility] Comment on above: GFR Calc Glomerular filtration rate ( GFR) estimationOrdered By: Dylon Murrieta 10-14-2024 Estimated GFR (MDRD) Non-Af Amer 49 mL/min Low >60 [facility] Comment on above: Non- GFR Calc Glucose measurementOrdered B y: Dylon Murrieta on 10-14-2024 Glucose [Mass/Vol] 223 mg/dL High 74-106 [facility] Comment on above: Glucose result great er than or equal to 200 mg/dLsuggests DIABETES MELLITUS per A.D.A. criteria. Hematocrit Auto (Bld) [Volum e fraction]Ordered By: Dylon Murrieta on 10-14-2024 Hematocrit (Bld) [Volume fraction] 39.8 % 37-47 [facility] Hemoglobin A1c percentageOrd ered By: Dylon Murrieta on 10-14-2024 HbA1c (Bld) [Mass fraction] 7.0 % High 3.8-5.6 [facility] Comment on above: Normal < 5.7 % Predi abetic 5.7 - 6.4 % Diabetic >or= 6.5 % Please note range changes. Hemoglobin measurementOrdere d By: Dylon Murrieta on 10-14-2024 Hemoglobin (Bld) [Mass/Vol] 12.7 g/dL 12.0-15.0 [facility] High density lipoprotein (HD L) measurementOrdered By: Dylon Murrieta on 10-14-2024 Cholesterol in HDL [Mass/Vol] 53 mg/dL >40 [facility] Comment on above: The drugs N-Acetylcy steine and Metamizole may falsely depress this assay. Reference Range HDL <40 mg/dL Low HDL Cholesterol HDL >or= 60 mg/dL High HDL Cholesterol Immature granulocytes/100 WB C Auto (Bld)Ordered By: Dylon Murrieta on 10-14-2024 Immature granulocytes/100 WBC (Bld) 1.100 % High 0.0-0.9 [facility] Comment on above: IG% - Immature Granu locytes (promyelocytes, myelocytes and metamyelocytes) > 1% indicates that a LEFT SHIFT is Present. Laboratory - Chemistry and C hemistry - challengeOrdered By: Dylon Murrieta on 10-14-2024 AST [Catalytic activity/Vol] 8 U/L Low 15-37 [facility] Low density lipoprotein (LDL ) cholesterol measurementOrdered By: Dylon Murrieta 10-14-2024 Cholesterol in LDL [Mass/Vol] 58 mg/dL 0-130 [facility] Lymphocytes Auto (Unsp spec) [#/Vol]Ordered By: Dylon Murrieta 10-14-2024 Lymphocytes (Bld) [#/Vol] 1.01 10*3/uL 0.83-4.51 [facility] Lymphocytes/100 WBC Auto (Un sp spec)Ordered By: Dylon Murrieta 10-14-2024 Lymphocytes/100 WBC (Bld) 15.2 % Low 19-41 [facility] MCV (mean corpuscular volume ) determinationOrdered By: Dylon Murrieta on 10-14-2024 MCV (RBC) [Entitic vol] 98.0 fL 81-[address] [facility] Mean corpuscular hemoglobin (MCH) determinationOrdered By: Dylon Murrieta 10-14-2024 MCH (RBC) [Entitic mass] 31.3 pg 27.0-32.0 [facility] Mean corpuscular hemoglobin concentration (MCHC) determinationOrdered By: Dylon Murrieta on 10-14-2024 MCHC (RBC) [Mass/Vol] 31.9 g/dL Low 32-36 [facility] Mean platelet volume determi nationOrdered By: Dylon Murrieta on 10-14-2024 Platelet mean volume (Bld) [Entitic vol] 10.7 fL 6.2-12.0 [facility] Monocyte percentageOrdered B y: Dylon Murrieta on 10-14-2024 Monocytes/100 WBC (Bld) 8.4 % 0-[address] [facility] Neutrophil percentageOrdered By: Dylon Murrieta on 10-14-2024 Neutrophils/100 WBC (Bld) 72.1 % High 47-70 [facility] Nucleated red blood cell per centageOrdered By: Dylon Murrieta on 10-14-2024 Nucleated RBC/100 WBC (Bld) [Ratio] 0 % 0-5 [facility] Platelet countOrdered By: Jonah Murrieta on 10-14-2024 Platelets (Bld) [#/Vol] 187 10*3/uL 150-450 [facility] Potassium measurementOrdered By: Dylon Murrieta on 10-14-2024 Potassium [Moles/Vol] 4.2 mmol/L 3.5-5.1 [facility] RBC Auto (Bld) [#/Vol]Ordere d By: Dylon Murrieta on 10-14-2024 RBC (Bld) [#/Vol] 4.06 10*6/uL Low 4.2-5.4 [facility] Serum anion gap measurementO rdered By: Dylon Murrieta on 10-14-2024 Anion gap [Moles/Vol] 7 mmol/L 5-15 [facility] Serum globulin measurementOr dered By: Dylon Murrieta on 10-14-2024 Globulin (S) [Mass/Vol] 3.6 g/dL 2.2-4.2 [facility] Serum or plasma alanine park otransferase (ALT) measurementOrdered By: Dylon Murrieta on 10-14-2024 ALT [Catalytic activity/Vol] 12 U/L Low 13-56 [facility] Serum or plasma albumin mariel urement (mass/volume)Ordered By: Dylon Murrieta on 10-14-2024 Albumin [Mass/Vol] 3.0 g/dL Low 3.2-5.0 [facility] Serum or plasma alkaline diane sphatase measurementOrdered By: Dylon Murrieta 10-14-2024 ALP [Catalytic activity/Vol] 58 U/L 45-117 [facility] Serum or plasma calcium mariel urement (mass/volume)Ordered By: Dylon Murrieta 10-14-2024 Calcium [Mass/Vol] 8.5 mg/dL 8.5-10.1 [facility] Serum or plasma cholesterol measurement (mass/volume)Ordered By: Dylon Murrieta 10-14-2024 Cholesterol [Mass/Vol] 146 mg/dL <200 [facility] Comment on above: <200 mg/dL Desirable 200-240 mg/dL Borderline >240 mg/dL High Risk Serum or plasma creatinine m easurement (mass/volume)Ordered By: Dylon Murrieta 10-14-2024 Creatinine [Mass/Vol] 1.17 mg/dL High 0.55-1.02 [facility] Comment on above: The validity of the calculated GFR & GFRAA in patients over 70 years has not been determined. Clinical correlation is essential. Serum or plasma urea nitroge n measurement (mass/volume)Ordered By: Dylon Murrieta 10-14-2024 Urea nitrogen [Mass/Vol] 19 mg/dL High 7-18 [facility] Sodium levelOrdered By: Dylon Murrieta 10-14-2024 Sodium [Moles/Vol] 140 mmol/L 136-145 [facility] TSH QnOrdered By: Dylon Murrieta o n 10-14-2024 Thyroid Stimulating Hormone (TSH) 1.150 uIU/mL 0.358-3.740 [facility] Total proteinOrdered By: Dylon Murrieta 10-14-2024 Protein [Mass/Vol] 6.6 g/dL 6.4-8.2 [facility] Triglycerides measurementOrd ered By: Dylon Murrieta 10-14-2024 Triglyceride [Mass/Vol] 173 mg/dL <[address] [facility] Comment on above: The drugs N-Acetylcy steine and Metamizole may falsely depress this assay.Serum Triglycerides Reference Interval Normal <150 mg/dL Borderline high 150 - 199 mg/dL High 200 - 499 mg/dL Very High > or = 500 mg/dL Very low density lipoprotein (VLDL) cholesterol measurementOrdered By: Dylon Murrieta on 10-14-2024 VLDL Cholesterol 35 mg/dL 5-40 [facility] White blood cell (WBC) count Ordered By: Dylon Murrieta on 10-14-2024 WBC (Bld) [#/Vol] 6.6 10*3/uL 4.4-11.0 [facility] CT BRAIN W/O CONTRASTon 09-2 CT BRAIN W/O CONTRAST [facility] [address] [address] Patient: TAMIA PANDA Phone#: : 1955 Age: 69 Gender: F Pt. Type: ER Account: [id number] Location: [facility] Ordering: DR. IRENE DENISE Exam Date: 06/16/2024/12:10 Family Phys: Charge Code: [id number] Physician: Norman Order #: [id number] Dose#: 52.3 mGy PROCEDURE: CT BRAIN WITHOUT [...] Barrientos MD on 06/16/2024 at 12:[address] [facility] [address] CERVICAL W/O CONTRASTon 0 06-16-2024 CT CERVICAL W/O CONTRAST [facility] [address] [id number] Patient: TAMIA PANDA Phone#: : [phone] Age: 69 Gender: F Pt. Type: ER Account: [id number] Location: 052 Ordering: DR. IRENE DENISE Exam Date: 06/16/2024/12:10 Family Phys: Charge Code: [id number] Physician: Norman Order #: [id number] Dose#: 14.1 mGy PROCEDURE: CT CERVICAL WITHOUT [...] 69 Gender: F Pt. Type: ER Account: [id number] Location: 052 Ordering: DR. IRENE DENISE Exam Date: 06/16/2024/12:10 Family Phys: Charge Code: [id number] Physician: Norman Order #: [id number] Dose#: 14.1 mGy Approved by: Karin Barrientos MD on 06/16/2024 at 13:[address] [facility] [address] DORSAL W/O CONTRASTon CT DORSAL W/O CONTRAST [place] [address] Patient: TAMIA PANDA Phone#: : 1955 Age: 69 Gender: F Pt. Type: ER Account: [id number] Location: 052 Ordering: DR. IRENE DENISE Exam Date: 06/16/2024/12:15 Family Phys: Charge Code: [id number] Physician: Norman Order #: [id number] Dose#: 28.5 mGy PROCEDURE: CT DORSAL SPINE [...] of the spine are present. Dictated by: Karin Barrientos MD on 06/16/2024 at 13:12 Approved by: Karin Barrientos MD on 06/16/2024 at 13:20 Normal [facility] Thin prep Papanicolaou smear with manual screeningOrdered By: John Ford on 01-26-2024 Thin prep Papanicolaou smear with manual screening 156 mg/dL 74-106 [facility] Comment on above: MANAGEMENT OF PATIEN T CARE PER NURSING PROTOCOL Absolute lymphocyte countOrd ered By: Dylon Murrieta on 01-13-2024 Lymphocytes Auto (Unsp spec) [#/Vol] 1.07 10*3/uL 0.83-4.51 [facility] Automated lymphocyte count a s percentage of total leukocytesOrdered By: Dylon Murrieta on 01-13-2024 Lymphocytes/100 WBC Auto (Unsp spec) 19.4 % 19-41 [facility] Bacteria identified Cx Nom ( Wound)Ordered By: Dylon Murrieta on 01-13-2024 Wound Culture Staphylococcus aureus [facility] Basophil percentageOrdered B y: Dylon Murrieta on 01-13-2024 Basophils/100 WBC (Bld) 0.5 % 0-[address] [facility] Bilirubin [Mass/Vol] 0.80 mg/dL 0.20-1.00 [facility] Comment on above: For patients on eltr ombopag therapy, use of [place] TBIL is not recommended. Chloride [Moles/Vol] 113 mmol/L 98-107 [facility] Cholesterol [Mass/Vol] 164 mg/dL <200 [facility] Comment on above: <200 mg/dL Desirable 200-240 mg/dL Borderline >240 mg/dL High Risk Eosinophils/100 WBC (Bld) 3.1 % 0-5 [facility] Glucose [Mass/Vol] 151 mg/dL 74-106 [facility] Comment on above: Fasting Glucose resu lt greater than or equal to 126 mg/dL suggests DIABETES MELLITUS per A.D.A. criteria. Hemoglobin (Bld) [Mass/Vol] 11.6 g/dL 12.0-15.0 [facility] Monocytes/100 WBC (Bld) 9.6 % 0-[address] [facility] Neutrophils (Bld) [#/Vol] 3.7 10*3/uL 2.0-7.7 [facility] Neutrophils/100 WBC (Bld) 66.3 % 47-70 [facility] Potassium [Moles/Vol] 4.4 mmol/L 3.5-5.1 [facility] Protein [Mass/Vol] 7.1 g/dL 6.4-8.2 [facility] Sodium [Moles/Vol] 142 mmol/L 136-145 [facility] Triglyceride [Mass/Vol] 192 mg/dL <[address] [facility] Comment on above: The drugs N-Acetylcy steine and Metamizole may falsely depress this assay.Serum Triglycerides Reference Interval Normal <150 mg/dL Borderline high 150 - 199 mg/dL High 200 - 499 mg/dL Very High > or = 500 mg/dL WBC (Bld) [#/Vol] 5.5 10*3/uL 4.4-11.0 [facility] Determination of erythrocyte mean corpuscular volume (MCV)Ordered By: Dylon Murrieta on 01-13-2024 MCV (RBC) [Entitic vol] 95.9 fL 81-[address] [facility] Erythrocyte distribution wid th ratioOrdered By: Dylon Murrieta 01-13-2024 Erythrocyte distribution width (RBC) [Ratio] 14.3 % 11.6-14.6 [facility] Erythrocyte distribution wid th standard deviationOrdered By: Dylon Murrieta 01-13-2024 Erythrocyte distribution width (RBC) [Entitic vol] 49.8 fL 35.1-43.9 [facility] Gram stain for investigation of transfusion reactionOrdered By: Dylon Murrieta 01-13-2024 Microscopic observation Gram stain Nom (Unsp spec) [facility] Hematocrit Auto (Bld) [Volum e fraction]Ordered By: Dlyon Murrieta 01-13-2024 Hematocrit (Bld) [Volume fraction] 37.4 % 37-47 [facility] Immature granulocytes/100 WB C Auto (Bld)Ordered By: Dylon Murrieta 01-13-2024 Immature granulocytes/100 WBC (Bld) 1.100 % 0.0-0.9 [facility] Comment on above: IG% - Immature Granu locytes (promyelocytes, myelocytes and metamyelocytes) > 1% indicates that a LEFT SHIFT is Present. Laboratory - Chemistry and C hemistry - challengeOrdered By: Dylon Murrieta 01-13-2024 Albumin/Globulin [Mass ratio] 0.8 {ratio} 0.9-2.4 [facility] ALP [Catalytic activity/Vol] 62 U/L 45-117 [facility] ALT [Catalytic activity/Vol] 13 U/L 13-56 [facility] Cholesterol in HDL [Mass/Vol] 47 mg/dL >40 [facility] Comment on above: The drugs N-Acetylcy steine and Metamizole may falsely depress this assay. Reference Range HDL <40 mg/dL Low HDL Cholesterol HDL >or= 60 mg/dL High HDL Cholesterol Cholesterol in LDL [Mass/Vol] 79 mg/dL 0-130 [facility] CO2 [Moles/Vol] 23.0 mmol/L 21.0-32.0 [facility] Globulin (S) [Mass/Vol] 4.0 g/dL 2.2-4.2 [facility] Urea nitrogen/Creatinine [Mass ratio] 14.8 mg/mg 10-20 [facility] Laboratory - Hematology and Cell countsOrdered By: Dylon Murrieta on 01-13-2024 MCH (RBC) [Entitic mass] 29.7 pg 27.0-32.0 [facility] MCHC (RBC) [Mass/Vol] 31.0 g/dL 32-36 [facility] Nucleated RBC/100 WBC (Bld) [Ratio] 0 % 0-5 [facility] Platelet mean volume (Bld) [Entitic vol] 10.6 fL 6.2-12.0 [facility] Platelets (Bld) [#/Vol] 202 10*3/uL 150-450 [facility] No Panel InformationOrdered By: Dylon Murrieta on 01-13-2024 Methicillin-Resist S.aureus DNA PCR Negative Negative [facility] Estimated GFR (MDRD) Amer 56 mL/min >60 [facility] Comment on above: GFR Calc Estimated GFR (MDRD) Non-Af Amer 47 mL/min >60 [facility] Comment on above: Non- GFR Calc Vitamin D 25-Hydroxy 54.8 ng/mL [facility] Comment on above: Vitamin D 25(OH) Sta tus Range Deficiency <20 ng/mL (50nmol/L) Insufficiency 20 - 30 ng/mL (50 - 75 nmol/L) Sufficiency 30 - 100 ng/mL (75 - 250 nmol/L) Toxicity >100 ng/mL (>250 nmol/L) VLDL Cholesterol 38 mg/dL 5-40 [facility] RBC Auto (Bld) [#/Vol]Ordere d By: Dylon Murrieta on 01-13-2024 RBC (Bld) [#/Vol] 3.90 10*6/uL 4.2-5.4 [facility] Serum or plasma calcium mariel urement (mass/volume)Ordered By: Dylon Murrieta on 01-13-2024 Calcium [Mass/Vol] 8.4 mg/dL 8.5-10.1 [facility] Serum or plasma creatinine m easurement (mass/volume)Ordered By: Dylon Murrieta on 01-13-2024 Creatinine [Mass/Vol] 1.22 mg/dL 0.55-1.02 [facility] Comment on above: The validity of the calculated GFR & GFRAA in patients over 70 years has not been determined. Clinical correlation is essential. Serum or plasma thyroid stim ulating hormone (TSH) measurement (units/volume)Ordered By: Dylon Murrieta 01-13-2024 TSH Qn 0.29 uIU/mL 0.358-3.74 [facility] Serum or plasma urea nitroge n measurement (mass/volume)Ordered By: Dylon Murrieta 01-13-2024 Urea nitrogen [Mass/Vol] 18 mg/dL 7-18 [facility] Staphylococcus aureus DNA de tection by probe and target amplification methodOrdered By: Dylon Murrieta 01-13-2024 S. aureus DNA SANDRA+probe Ql (Unsp spec) Positive Negative [facility] Thin prep Papanicolaou smear with manual screeningOrdered By: Dylon Murrieta 01-13-2024 Thin prep Papanicolaou smear with manual screening 3.1 g/dL 3.2-5.0 [facility] Thin prep Papanicolaou smear with manual screening 13 U/L 15-37 [facility] Thin prep Papanicolaou smear with manual screening 6 5-15 [facility] Whole blood hemoglobin A1c/t otal hemoglobin ratio (mass fraction)Ordered By: Dylon Murrieta 01-13-2024 HbA1c (Bld) [Mass fraction] 6.5 % 3.8-5.6 [facility] Comment on above: Normal < 5.7 % Predi abetic 5.7 - 6.4 % Diabetic >or= 6.5 % Please note range changes. Thin prep Papanicolaou smear with manual screeningOrdered By: Jeff Lewis on 11-27-2023 Thin prep Papanicolaou smear with manual screening 162 mg/dL 74-106 [facility] Comment on above: MANAGEMENT OF PATIEN T CARE PER NURSING PROTOCOL Basophil percentageOrdered B y: Dylon Murrieta on 10-20-2023 Basophil percentage 139 mg/dL 74-106 [facility] Basophil percentage 137 mmol/L 136-145 [facility] Basophil percentage 3.8 mmol/L 3.5-5.1 [facility] Basophil percentage 103 mmol/L 98-107 [facility] Chloride [Moles/Vol] 103 mmol/L 98-107 [facility] Glucose [Mass/Vol] 139 mg/dL 74-106 [facility] Comment on above: Fasting Glucose resu lt greater than or equal to 126 mg/dL suggests DIABETES MELLITUS per A.D.A. criteria. Potassium [Moles/Vol] 3.8 mmol/L 3.5-5.1 [facility] Sodium [Moles/Vol] 137 mmol/L 136-145 [facility] Laboratory - Chemistry and C hemistry - challengeOrdered By: Dylon Murrieta on 10-20-2023 CO2 [Moles/Vol] 31.0 mmol/L 21.0-32.0 [facility] Urea nitrogen/Creatinine [Mass ratio] 14.8 mg/mg 10-20 [facility] No Panel InformationOrdered By: Dylon Murrieta on 10-20-2023 D-Dimer Quantitative (PE/DVT) < 0.27 FEU/ug/m 0.27-0.49 [facility] Comment on above: NORMAL D-Dimer level (<0.50) indicates no DVT or PE. Estimated GFR (MDRD) Amer 53 mL/min >60 [facility] Comment on above: GFR Calc Estimated GFR (MDRD) Non-Af Amer 44 mL/min >60 [facility] Comment on above: Non- GFR Calc < 0.27 FEU/ug/m 0.27-0.49 [facility] 44 mL/min >60 [facility] 53 mL/min >60 [facility] 14.8 RATIO 10-20 [facility] 31.0 mmol/L 21.0-32.0 [facility] Serum or plasma calcium mariel urement (mass/volume)Ordered By: Dylon Murrieta on 10-20-2023 Calcium [Mass/Vol] 9.5 mg/dL 8.5-10.1 [facility] Serum or plasma creatinine m easurement (mass/volume)Ordered By: Dylon Murrieta on 10-20-2023 Creatinine [Mass/Vol] 1.28 mg/dL 0.55-1.02 [facility] Comment on above: The validity of the calculated GFR & GFRAA in patients over 70 years has not been determined. Clinical correlation is essential. Serum or plasma urea nitroge n measurement (mass/volume)Ordered By: Dylon Murrieta on 10-20-2023 Urea nitrogen [Mass/Vol] 19 mg/dL 7-18 [facility] Thin prep Papanicolaou smear with manual screeningOrdered By: Dylon Murrieta on 10-20-2023 Thin prep Papanicolaou smear with manual screening 3 5-15 [facility] Absolute lymphocyte countOrd ered By: Dylon Murrieta on 10-13-2023 Lymphocytes Auto (Unsp spec) [#/Vol] 1.13 10*3/uL 0.83-4.51 [facility] Automated lymphocyte count a s percentage of total leukocytesOrdered By: Dylon Murrieta 10-13-2023 Lymphocytes/100 WBC Auto (Unsp spec) 16.6 % 19-41 [facility] Basophil percentageOrdered B y: Dylon Murrieta on 10-13-2023 Basophil percentage 12.1 g/dL 12.0-15.0 [facility] Basophil percentage 240 mg/dL 74-106 [facility] Basophil percentage 7.3 g/dL 6.4-8.2 [facility] Basophil percentage 1.30 mg/dL 0.20-1.00 [facility] Basophil percentage 198 mg/dL <200 [facility] Basophil percentage 311 mg/dL <199 [facility] Basophil percentage 141 mmol/L 136-145 [facility] Basophil percentage 3.8 mmol/L 3.5-5.1 [facility] Basophil percentage 106 mmol/L 98-107 [facility] Basophils (Bld) [#/Vol] 6.8 10*3/uL 4.4-11.0 [facility] Basophils (Bld) [#/Vol] 4.6 10*3/uL 2.0-7.7 [facility] Basophils/100 WBC (Bld) 68.0 % 47-[address] [facility] Basophils/100 WBC (Bld) 9.9 % 0-[address] [facility] Basophils/100 WBC (Bld) 4.0 % 0-[address] [facility] Basophils/100 WBC (Bld) 0.6 % 0-[address] [facility] Bilirubin [Mass/Vol] 1.30 mg/dL 0.20-1.00 [facility] Comment on above: For patients on eltr ombopag therapy, use of Dimension [place] TBIL is not recommended. Chloride [Moles/Vol] 106 mmol/L 98-107 [facility] Cholesterol [Mass/Vol] 198 mg/dL <200 [facility] Comment on above: <200 mg/dL Desirable 200-240 mg/dL Borderline >240 mg/dL High Risk Eosinophils/100 WBC (Bld) 4.0 % 0-5 [facility] Glucose [Mass/Vol] 240 mg/dL 74-106 [facility] Comment on above: Glucose result great er than or equal to 200 mg/dLsuggests DIABETES MELLITUS per A.D.A. criteria. Hemoglobin (Bld) [Mass/Vol] 12.1 g/dL 12.0-15.0 [facility] Monocytes/100 WBC (Bld) 9.9 % 0-[address] [facility] Neutrophils (Bld) [#/Vol] 4.6 10*3/uL 2.0-7.7 [facility] Neutrophils/100 WBC (Bld) 68.0 % 47-70 [facility] Potassium [Moles/Vol] 3.8 mmol/L 3.5-5.1 [facility] Comment on above: Slight Hemolysis, Re sult may be falsely increased. Protein [Mass/Vol] 7.3 g/dL 6.4-8.2 [facility] Sodium [Moles/Vol] 141 mmol/L 136-145 [facility] Triglyceride [Mass/Vol] 311 mg/dL <[address] [facility] Comment on above: The drugs N-Acetylcy steine and Metamizole may falsely depress this assay.Serum Triglycerides Reference Interval Normal <150 mg/dL Borderline high 150 - 199 mg/dL High 200 - 499 mg/dL Very High > or = 500 mg/dL WBC (Bld) [#/Vol] 6.8 10*3/uL 4.4-11.0 [facility] Determination of erythrocyte mean corpuscular volume (MCV)Ordered By: Dylon Murrieta on 10-13-2023 MCV (RBC) [Entitic vol] 97.2 fL 81-[address] [facility] Erythrocyte distribution wid th ratioOrdered By: Dylon Murrieta on 10-13-2023 Erythrocyte distribution width (RBC) [Ratio] 14.8 % 11.6-14.6 [facility] Erythrocyte distribution wid th standard deviationOrdered By: Dylon Murrieta 10-13-2023 Erythrocyte distribution width (RBC) [Entitic vol] 53.0 fL 35.1-43.9 [facility] Hematocrit Auto (Bld) [Volum e fraction]Ordered By: Dylon Murrieta 10-13-2023 Hematocrit (Bld) [Volume fraction] 38.2 % 37-47 [facility] High density lipoprotein (HD L) measurementOrdered By: Dylon Murrieta 10-13-2023 Cholesterol in HDL (Body fld) [Mass/Vol] 52 mg/dL >40 [facility] Comment on above: The drugs N-Acetylcy steine and Metamizole may falsely depress this assay. Reference Range HDL <40 mg/dL Low HDL Cholesterol HDL >or= 60 mg/dL High HDL Cholesterol Immature granulocytes/100 WB C Auto (Bld)Ordered By: Dylon Murrieta on 10-13-2023 Immature granulocytes/100 WBC (Bld) 0.900 % 0.0-0.9 [facility] Comment on above: IG% - Immature Granu locytes (promyelocytes, myelocytes and metamyelocytes) > 1% indicates that a LEFT SHIFT is Present. Laboratory - Chemistry and C hemistry - challengeOrdered By: Dylon Murrieta on 10-13-2023 Albumin/Globulin [Mass ratio] 0.8 {ratio} 0.9-2.4 [facility] ALP [Catalytic activity/Vol] 70 U/L 45-117 [facility] ALT [Catalytic activity/Vol] 17 U/L 13-56 [facility] CO2 [Moles/Vol] 30.0 mmol/L 21.0-32.0 [facility] Globulin (S) [Mass/Vol] 4.1 g/dL 2.2-4.2 [facility] Urea nitrogen/Creatinine [Mass ratio] 14.2 mg/mg 10-20 [facility] Laboratory - Hematology and Cell countsOrdered By: Dylon Murrieta on 10-13-2023 MCH (RBC) [Entitic mass] 30.8 pg 27.0-32.0 [facility] MCHC (RBC) [Mass/Vol] 31.7 g/dL 32-36 [facility] Nucleated RBC/100 WBC (Bld) [Ratio] 0 % 0-5 [facility] Platelets (Bld) [#/Vol] 188 10*3/uL 150-450 [facility] Low density lipoprotein (LDL ) cholesterol measurementOrdered By: Dylon Murrieta on 10-13-2023 Cholesterol in LDL (Body fld) [Moles/Vol] 84 mg/dL 0-130 [facility] No Panel InformationOrdered By: Dylon Murrieta on 10-13-2023 Estimated GFR (MDRD) Amer 41 mL/min >60 [facility] Comment on above: GFR Calc Estimated GFR (MDRD) Non-Af Amer 34 mL/min >60 [facility] Comment on above: Non- GFR Calc Hepatitis C Antibody Non-Reactive Nonreactive [facility] Comment on above: Non Reactive: < 0.8 Equivocal: >/= 0.8 to < 1.0 Reactive: >/= 1.0The CDC recommends that a reactive/equivocal HCV antibody result be followed up by the HCV Nucleic Acid Amplificationtest (837213) Vitamin D 25-Hydroxy 58.4 ng/mL [facility] Comment on above: Vitamin D 25(OH) Sta tus Range Deficiency <20 ng/mL (50nmol/L) Insufficiency 20 - 30 ng/mL (50 - 75 nmol/L) Sufficiency 30 - 100 ng/mL (75 - 250 nmol/L) Toxicity >100 ng/mL (>250 nmol/L) 30.8 pg 27.0-32.0 [facility] 31.7 g/dL 32-36 [facility] 188 K/mm3 150-450 [facility] 0 % 0-5 [facility] 34 mL/min >60 [facility] 41 mL/min >60 [facility] 14.2 RATIO 10-20 [facility] 4.1 g/dL 2.2-4.2 [facility] 0.8 RATIO 0.9-2.4 [facility] 70 U/L 45-117 [facility] 17 U/L 13-56 [facility] 30.0 mmol/L 21.0-32.0 [facility] 58.4 ng/mL [facility] [facility] Non-Reactive Nonreactive [facility] Platelet mean volume Magnus-Ec ker (Bld) [Entitic vol]Ordered By: Dylon Murrieta on 10-13-2023 Platelet mean volume (Bld) [Entitic vol] 10.5 fL 6.2-12.0 [facility] RBC Auto (Bld) [#/Vol]Ordere d By: Dylon Murrieta on 10-13-2023 RBC (Bld) [#/Vol] 3.93 10*6/uL 4.2-5.4 [facility] Serum or plasma calcium mariel urement (mass/volume)Ordered By: Dylon Murrieta 10-13-2023 Calcium [Mass/Vol] 8.9 mg/dL 8.5-10.1 [facility] Serum or plasma creatinine m easurement (mass/volume)Ordered By: Dylon Murrieta 10-13-2023 Creatinine [Mass/Vol] 1.62 mg/dL 0.55-1.02 [facility] Comment on above: The validity of the calculated GFR & GFRAA in patients over 70 years has not been determined. Clinical correlation is essential. Serum or plasma thyroid stim ulating hormone (TSH) measurement (units/volume)Ordered By: Dylon Murrieta on 10-13-2023 TSH Qn 3.22 uIU/mL 0.358-3.74 [facility] Serum or plasma urea nitroge n measurement (mass/volume)Ordered By: Dylon Murrieta 4 Urea nitrogen [Mass/Vol] 23 mg/dL 7-18 [facility] Serum or plasma uric acid me asurement (mass/volume)Ordered By: Dylon Murrieta on 10-13-2023 Urate [Mass/Vol] 4.9 mg/dL 2.6-6.0 [facility] Comment on above: The drugs N-Acetylcy steine and Metamizole may falsely depress this assay. Thin prep Papanicolaou smear with manual screeningOrdered By: Dylon Murrieta on 10-13-2023 Thin prep Papanicolaou smear with manual screening 3.2 g/dL 3.2-5.0 [facility] Thin prep Papanicolaou smear with manual screening 17 U/L [facility] Comment on above: Slight Hemolysis, Re sult may be falsely increased. Thin prep Papanicolaou smear with manual screening 5 5-15 [facility] Thin prep Papanicolaou smear with manual screening 11.2 mg/L NO RANGE EST. [facility] Urine albumin/creatinine rat io for detection of microalbuminuriaOrdered By: Dylon Murrieta on 10-13-2023 Albumin/Creatinine DL <= 1.0 mg/L (24H U) [Ratio] 22.6 mg/g CRE <30 [facility] Urine creatinine measurement (mass/volume)Ordered By: Dylon Murrieta on 10-13-2023 Creatinine (U) [Mass/Vol] 49.60 mg/dL NO RANGE EST. [facility] Very low density lipoprotein (VLDL) cholesterol measurementOrdered By: Dylon Murrieta on 10-13-2023 Cholesterol in VLDL Calc [Moles/Vol] 62 mg/dL 5-40 [facility] Whole blood hemoglobin A1c/t otal hemoglobin ratio (mass fraction)Ordered By: Dylon Murrieta on 10-13-2023 HbA1c (Bld) [Mass fraction] 7.4 % 3.8-5.6 [facility] Comment on above: Normal < 5.7 % Predi abetic 5.7 - 6.4 % Diabetic >or= 6.5 % Please note range changes. Absolute lymphocyte countOrd ered By: Reyna Champagne on 08-20-2023 Lymphocytes Auto (Unsp spec) [#/Vol] 0.53 10*3/uL 0.83-4.51 [facility] Basophil percentageOrdered B y: Reyna Champagne on 08-20-2023 Basophil percentage 95 mg/dL 74-106 [facility] Basophil percentage 6.3 g/dL 6.4-8.2 [facility] Basophil percentage 0.80 mg/dL 0.20-1.00 [facility] Basophil percentage 139 mmol/L 136-145 [facility] Basophil percentage 4.4 mmol/L 3.5-5.1 [facility] Basophil percentage 106 mmol/L 98-107 [facility] Basophils (Bld) [#/Vol] 6.5 10*3/uL 4.4-11.0 [facility] Basophils (Bld) [#/Vol] 4.8 10*3/uL 2.0-7.7 [facility] Basophils/100 WBC (Bld) 73.8 % 47-[address] [facility] Basophils/100 WBC (Bld) 6.0 % 0-[address] [facility] Basophils/100 WBC (Bld) 0.5 % 0-[address] [facility] Blood erythrocytes count (nu mber/volume)Ordered By: Reyna Champagne on 08-20-2023 RBC (Bld) [#/Vol] 3.46 10*6/uL 4.2-5.4 [facility] Blood hemoglobin measurement (mass/volume)Ordered By: Reyna Champagne on 08-20-2023 Hemoglobin (Bld) [Mass/Vol] 10.8 g/dL 12.0-15.0 [facility] Blood lymphocytes/100 leukoc ytesOrdered By: Reyna Champagne on 08-20-2023 Lymphocytes/100 WBC (Bld) 8.1 % 19-41 [facility] Blood manual differential co mment interpretation (narrative result)Ordered By: Reyna Champagne on 08-20-2023 Manual differential comment Prashanth (Bld) [Interp] SCANNED [facility] Blood monocytes/100 leukocyt esOrdered By: Reyna Champagne on 08-20-2023 Monocytes/100 WBC (Bld) 10.4 % 0-[address] [facility] Blood platelet mean volumeOr dered By: Reyna Champagne on 08-20-2023 Platelet mean volume (Bld) [Entitic vol] 10.6 fL 6.2-12.0 [facility] Determination of erythrocyte mean corpuscular volume (MCV)Ordered By: Reyna Champagne on 08-20-2023 MCV (RBC) [Entitic vol] 99.4 fL 81-[address] [facility] Glucose Glucometer (BldC) [M ass/Vol]Ordered By: Reyna Champagne on 08-20-2023 Glucose [Mass/Vol] 94 mg/dL 74-106 [facility] Hematocrit Auto (Bld) [Volum e fraction]Ordered By: Reyna Champagne on 08-20-2023 Hematocrit (Bld) [Volume fraction] 34.4 % 37-47 [facility] MCHC Auto (RBC) [Mass/Vol]Or dered By: Reyna Champagne on 08-20-2023 MCHC (RBC) [Mass/Vol] 31.4 g/dL 32-36 [facility] No Panel InformationOrdered By: Reyna Champagne on 08-20-2023 31.2 pg 27.0-32.0 [facility] 14.9 % 11.6-14.6 [facility] 53.8 fl 35.1-43.9 [facility] 1.200 % 0.0-0.9 [facility] 0 % 0-5 [facility] 56 mL/min >60 [facility] 68 mL/min >60 [facility] 39.07 ml/min [facility] 13.5 RATIO 10-20 [facility] 4.0 g/dL 2.2-4.2 [facility] 168 U/L 45-117 [facility] 133 U/L 13-56 [facility] 29.0 mmol/L 21.0-32.0 [facility] Platelets bldOrdered By: Khushbu Champagne on 08-20-2023 Platelets (Bld) [#/Vol] 226 10*3/uL 150-450 [facility] Serum or plasma albumin mariel urement (mass/volume)Ordered By: Reyna Champagne on 08-20-2023 Albumin [Mass/Vol] 2.3 g/dL 3.2-5.0 [facility] Serum or plasma albumin/glob ulin mass ratioOrdered By: Reyna Champagne on 08-20-2023 Albumin/Globulin [Mass ratio] 0.6 {ratio} 0.9-2.4 [facility] Serum or plasma calcium mariel urement (mass/volume)Ordered By: Reyna Champagne on 08-20-2023 Calcium [Mass/Vol] 8.4 mg/dL 8.5-10.1 [facility] Serum or plasma creatinine m easurement (mass/volume)Ordered By: Reyna Champagne on 08-20-2023 Creatinine [Mass/Vol] 1.04 mg/dL 0.55-1.02 [facility] Serum or plasma urea nitroge n measurement (mass/volume)Ordered By: Reyna Champagne on 08-20-2023 Urea nitrogen [Mass/Vol] 14 mg/dL 7-18 [facility] Thin prep Papanicolaou smear with manual screeningOrdered By: Reyna Champagne on 08-20-2023 Thin prep Papanicolaou smear with manual screening 100 U/L 15-37 [facility] Thin prep Papanicolaou smear with manual screening 4 5-15 [facility] No Panel InformationOrdered By: Yvon Gaviria on 08-17-2023 16 U/L 13-75 [facility] Direct bilirubinOrdered By: Yvon Hogan on 08-16-2023 Bilirubin.direct [Mass/Vol] 0.25 mg/dL 0.00-0.30 [facility] No Panel InformationOrdered By: Yvon Gaviria on 08-16-2023 11 pg/mL 3.0-54.0 [facility] Basophil percentageOrdered B y: Yvon Hogan on 08-15-2023 Basophil percentage 2.3 mg/dL 2.5-4.9 [facility] No Panel InformationOrdered By: Yvon Hogan on 08-15-2023 2.4 mg/dL 1.6-2.6 [facility] Basophil percentageOrdered B y: Yvon Gaviria on 08-14-2023 Basophil percentage 38.0 umol/L 11-32 [facility] Basophil percentage 128 mg/dL <200 [facility] Basophil percentage 130 mg/dL <199 [facility] No Panel InformationOrdered By: Yvon Gaviria on 08-14-2023 2.65 uIU/mL 0.358-3.74 [facility] Serum or plasma cholesterol in HDL measurement (mass/volume)Ordered By: Yvon Gaviria on 08-14-2023 Cholesterol in HDL [Mass/Vol] 45 mg/dL >40 [facility] Serum or plasma cholesterol in VLDL measurement (mass/volume)Ordered By: Yvon Gaviria on 08-14-2023 Cholesterol in VLDL [Mass/Vol] 26 mg/dL 5-40 [facility] Serum or plasma low density lipoprotein (LDL) cholesterol measurement (mass/volume)Ordered By: Yvon Gaviria on 08-14-2023 Cholesterol in LDL [Mass/Vol] 57 mg/dL 0-130 [facility] Absolute lymphocyte countOrd ered By: Eleazar Brooks on 08-13-2023 Lymphocytes Auto (Unsp spec) [#/Vol] 0.43 10*3/uL 0.83-4.51 [facility] Bacteria identified Cx Nom ( U)Ordered By: Eleazar Brooks on 08-13-2023 Culture, urine ESBL Escherichia coli [facility] Basophil percentageOrdered B y: Eleazar Brooks on 08-13-2023 Basophil percentage 5-10 SEEN /hpf 0-[address] [facility] Basophil percentage 213 mg/dL 74-106 [facility] Basophil percentage 7.7 g/dL 6.4-8.2 [facility] Basophil percentage 1.50 mg/dL 0.20-1.00 [facility] Basophil percentage 136 mmol/L 136-145 [facility] Basophil percentage 3.5 mmol/L 3.5-5.1 [facility] Basophil percentage 104 mmol/L 98-107 [facility] Basophil percentage 1.5 mmol/L 0.4-2.0 [facility] Basophils (Bld) [#/Vol] 9.2 10*3/uL 4.4-11.0 [facility] Basophils (Bld) [#/Vol] 7.8 10*3/uL 2.0-7.7 [facility] Basophils/100 WBC (Bld) 84.7 % 47-[address] [facility] Basophils/100 WBC (Bld) 1.3 % 0-[address] [facility] Basophils/100 WBC (Bld) 0.3 % 0-[address] [facility] Bilirubin Test strip Ql (U)O rdered By: Eleazar Brooks on 08-13-2023 Bilirubin Ql (U) Negative Negative [facility] Blood erythrocytes count (nu mber/volume)Ordered By: Eleazar Brooks on 08-13-2023 RBC (Bld) [#/Vol] 3.70 10*6/uL 4.2-5.4 [facility] Blood hemoglobin measurement (mass/volume)Ordered By: Eleazar Brooks on 08-13-2023 Hemoglobin (Bld) [Mass/Vol] 11.3 g/dL 12.0-15.0 [facility] Blood lymphocytes/100 leukoc ytesOrdered By: Eleazar Brooks on 08-13-2023 Lymphocytes/100 WBC (Bld) 4.7 % 19-41 [facility] Blood manual differential co mment interpretation (narrative result)Ordered By: Eleazar Brooks on 08-13-2023 Manual differential comment Prashanth (Bld) [Interp] SCANNED [facility] Blood monocytes/100 leukocyt esOrdered By: Eleazar Brooks on 08-13-2023 Monocytes/100 WBC (Bld) 8.5 % 0-[address] [facility] Blood platelet mean volumeOr dered By: Eleazar Brooks on 08-13-2023 Platelet mean volume (Bld) [Entitic vol] 10.8 fL 6.2-12.0 [facility] Determination of erythrocyte mean corpuscular volume (MCV)Ordered By: Eleazar Brooks on 08-13-2023 MCV (RBC) [Entitic vol] 98.9 fL 81-[address] [facility] Hematocrit Auto (Bld) [Volum e fraction]Ordered By: Eleazar Brooks on 08-13-2023 Hematocrit (Bld) [Volume fraction] 36.6 % 37-47 [facility] Ketones Test strip Ql (U)Ord ered By: Eleazar Brooks on 08-13-2023 Ketones Ql (U) Negative Negative [facility] MCHC Auto (RBC) [Mass/Vol]Or dered By: Eleazar Brooks on 08-13-2023 MCHC (RBC) [Mass/Vol] 30.9 g/dL 32-36 [facility] Mucus LM Ql (Urine sed)Order ed By: Eleazar Brooks on 08-13-2023 Mucus Ql (Urine sed) 0 SEEN /hpf [facility] Nitrite Test strip Ql (U)Ord ered By: Eleazar Brooks on 08-13-2023 Nitrite Ql (U) Negative Negative [facility] No Panel InformationOrdered By: Eleazar Brooks on 08-13-2023 15 pg/mL 3.0-54.0 [facility] 30.5 pg 27.0-32.0 [facility] 15.2 % 11.6-14.6 [facility] 54.4 fl 35.1-43.9 [facility] 0.500 % 0.0-0.9 [facility] 0 % 0-5 [facility] 37 mL/min >60 [facility] 45 mL/min >60 [facility] 27.45 ml/min [facility] 14.2 RATIO 10-20 [facility] 4.7 g/dL 2.2-4.2 [facility] 141 U/L 45-117 [facility] 164 U/L 13-56 [facility] 30.0 mmol/L 21.0-32.0 [facility] No Panel InformationOrdered By: Yvon Gaviria on 08-13-2023 [facility] Negative < 50 ng/mL [facility] Platelets bldOrdered By: Eleazar Brooks on 08-13-2023 Platelets (Bld) [#/Vol] 206 10*3/uL 150-450 [facility] Protein Test strip Ql (U)Ord ered By: Eleazar Brooks on 08-13-2023 Protein Ql (U) 30 mg/dl Negative [facility] Serum or plasma albumin mariel urement (mass/volume)Ordered By: Eleazar Brooks on 08-13-2023 Albumin [Mass/Vol] 3.0 g/dL 3.2-5.0 [facility] Serum or plasma albumin/glob ulin mass ratioOrdered By: Eleazar Brooks on 08-13-2023 Albumin/Globulin [Mass ratio] 0.6 {ratio} 0.9-2.4 [facility] Serum or plasma calcium mariel urement (mass/volume)Ordered By: Eleazar Brooks on 08-13-2023 Calcium [Mass/Vol] 8.3 mg/dL 8.5-10.1 [facility] Serum or plasma creatinine m easurement (mass/volume)Ordered By: Eleazar Brooks on 08-13-2023 Creatinine [Mass/Vol] 1.48 mg/dL 0.55-1.02 [facility] Serum or plasma urea nitroge n measurement (mass/volume)Ordered By: Eleazar Brooks on 08-13-2023 Urea nitrogen [Mass/Vol] 21 mg/dL 7-18 [facility] Squamous epithelial cells de tection in urine sediment by light microscopyOrdered By: Eleazar Brooks on 08-13-2023 Epithelial cells.squamous LM Ql (Urine sed) 0-5 SEEN /hpf 5-10 [facility] Thin prep Papanicolaou smear with manual screeningOrdered By: Eleazar Brooks on 08-13-2023 Thin prep Papanicolaou smear with manual screening 149 U/L 15-37 [facility] Thin prep Papanicolaou smear with manual screening 2 5-15 [facility] Urine blood detectionOrdered By: Eleazar Brooks on 08-13-2023 RBC Ql (U) 25 /ul Negative [facility] RBC Ql (U) 0 SEEN /hpf 0-5 [facility] Urine clarityOrdered By: Eleazar Brooks on 08-13-2023 Clarity (U) Sl. Cloudy Clear [facility] Urine color determinationOrd ered By: Eleazar Brooks on 08-13-2023 Color (U) Yellow Yellow [facility] Urine glucose detectionOrder ed By: Eleazar Brooks on 08-13-2023 Glucose Ql (U) Normal mg/dl Normal [facility] Urine leukocyte esterase det ection by dipstickOrdered By: Eleazar Brooks on 08-13-2023 Leukocyte esterase Test strip Ql (U) 100 /ul Negative [facility] Urine pHOrdered By: Eleazar patel on 08-13-2023 pH (U) 5.0 [pH] 5.0 - 8.0 [facility] Urine phencyclidine (PCP) de tectionOrdered By: Yvon Gaviria on 08-13-2023 Phencyclidine Ql (U) Negative < 25 ng/mL [facility] Urine sediment bacteria coun t by microscopy (number/high power field)Ordered By: Eleazar Brooks on 08-13-2023 Bacteria LM.HPF (Urine sed) [#/Area] 3 /[HPF] None Seen [facility] Urine specific gravity measu rementOrdered By: Eleazar Brooks on 08-13-2023 Specific gravity (U) [Rel density] 1.015 1.002-1.030 [facility] Urobilinogen Auto test strip Ql (U)Ordered By: Eleazar Brooks on 08-13-2023 Urobilinogen Ql (U) 4 mg/dl Normal [facility] Whole blood hemoglobin A1c/t otal hemoglobin ratio (mass fraction)Ordered By: Yvon Gaviria on 08-13-2023 HbA1c (Bld) [Mass fraction] 7.1 % 3.8-5.6 [facility] Basophil percentageOrdered B y: Uma Vela on 07-02-2023 Basophil percentage 138 mg/dL 74-106 [facility] Basophil percentage 142 mmol/L 136-145 [facility] Basophil percentage 3.5 mmol/L 3.5-5.1 [facility] Basophil percentage 105 mmol/L 98-107 [facility] No Panel InformationOrdered By: Uma Vela on 07-02-2023 41 mL/min >60 [facility] 49 mL/min >60 [facility] 16.1 RATIO 10-20 [facility] 30.0 mmol/L 21.0-32.0 [facility] Serum or plasma calcium mariel urement (mass/volume)Ordered By: Uma Vela on 07-02-2023 Calcium [Mass/Vol] 8.7 mg/dL 8.5-10.1 [facility] Serum or plasma creatinine m easurement (mass/volume)Ordered By: Uma Vela on 07-02-2023 Creatinine [Mass/Vol] 1.37 mg/dL 0.55-1.02 [facility] Serum or plasma urea nitroge n measurement (mass/volume)Ordered By: Uma Vela on 07-02-2023 Urea nitrogen [Mass/Vol] 22 mg/dL 7-18 [facility] Thin prep Papanicolaou smear with manual screeningOrdered By: Uma Vela on 07-02-2023 Thin prep Papanicolaou smear with manual screening 7 5-15 [facility] Absolute lymphocyte countOrd ered By: Jim Huddleston on 06-10-2023 Lymphocytes Auto (Unsp spec) [#/Vol] 1.20 10*3/uL 0.83-4.51 [facility] Basophil percentageOrdered B y: Jim Huddleston on 06-10-2023 Basophil percentage 105 mg/dL 74-106 [facility] Basophil percentage 140 mmol/L 136-145 [facility] Basophil percentage 3.9 mmol/L 3.5-5.1 [facility] Basophil percentage 106 mmol/L 98-107 [facility] Chloride [Moles/Vol] 106 mmol/L 98-107 [facility] Glucose [Mass/Vol] 105 mg/dL 74-106 [facility] Comment on above: Fasting Glucose resu lt from 100 to 125 mg/dL suggests IMPAIRED HOMEOSTASIS per A.D.A. criteria. Potassium [Moles/Vol] 3.9 mmol/L 3.5-5.1 [facility] Sodium [Moles/Vol] 140 mmol/L 136-145 [facility] Basophils (Bld) [#/Vol] 8.3 10*3/uL 4.4-11.0 [facility] Basophils (Bld) [#/Vol] 5.8 10*3/uL 2.0-7.7 [facility] Basophils/100 WBC (Bld) 69.7 % 47-[address] [facility] Basophils/100 WBC (Bld) 4.7 % 0-[address] [facility] Basophils/100 WBC (Bld) 0.6 % 0-[address] [facility] Eosinophils/100 WBC (Bld) 4.7 % 0-5 [facility] Neutrophils (Bld) [#/Vol] 5.8 10*3/uL 2.0-7.7 [facility] Neutrophils/100 WBC (Bld) 69.7 % 47-70 [facility] WBC (Bld) [#/Vol] 8.3 10*3/uL 4.4-11.0 [facility] Blood erythrocytes count (nu mber/volume)Ordered By: Jim Huddleston on 06-10-2023 RBC (Bld) [#/Vol] 4.16 10*6/uL 4.2-5.4 [facility] Blood hemoglobin measurement (mass/volume)Ordered By: Jim Huddleston on 06-10-2023 Hemoglobin (Bld) [Mass/Vol] 13.2 g/dL 12.0-15.0 [facility] Blood lymphocytes/100 leukoc ytesOrdered By: Jim Huddleston on 06-10-2023 Lymphocytes/100 WBC (Bld) 14.5 % 19-41 [facility] Blood monocytes/100 leukocyt esOrdered By: Jim Huddleston on 06-10-2023 Monocytes/100 WBC (Bld) 9.7 % 0-[address] [facility] Blood platelet mean volumeOr dered By: Jim Huddleston on 06-10-2023 Platelet mean volume (Bld) [Entitic vol] 11.1 fL 6.2-12.0 [facility] Determination of erythrocyte mean corpuscular volume (MCV)Ordered By: iJm Huddleston on 06-10-2023 MCV (RBC) [Entitic vol] 99.8 fL 81-[address] [facility] Hematocrit Auto (Bld) [Volum e fraction]Ordered By: Jim Huddleston on 06-10-2023 Hematocrit (Bld) [Volume fraction] 41.5 % 37-47 [facility] Laboratory - Chemistry and C hemistry - challengeOrdered By: Jim Huddleston on 06-10-2023 CO2 [Moles/Vol] 32.0 mmol/L 21.0-32.0 [facility] Urea nitrogen/Creatinine [Mass ratio] 16.8 mg/mg 10-20 [facility] Laboratory - Hematology and Cell countsOrdered By: Jim Huddleston on 06-10-2023 Erythrocyte distribution width (RBC) [Entitic vol] 52.0 fL 35.1-43.9 [facility] Erythrocyte distribution width (RBC) [Ratio] 14.4 % 11.6-14.6 [facility] Immature granulocytes/100 WBC (Bld) 0.800 % 0.0-0.9 [facility] Comment on above: IG% - Immature Granu locytes (promyelocytes, myelocytes and metamyelocytes) > 1% indicates that a LEFT SHIFT is Present. MCH (RBC) [Entitic mass] 31.7 pg 27.0-32.0 [facility] Nucleated RBC/100 W[facility] (Bld) [[facility]] 0 % [facility] [Mass/Vol]Or dered By: Jim Huddleston on 06-10-2023 MCHC (RBC) [Mass/Vol] 31.8 g/dL 32-36 [facility] No Panel InformationOrdered By: Jim Huddleston on 06-10-2023 Troponin I High Sensitivity 11 pg/mL 3.0-54.0 [facility] Comment on above: Please Note: [place] t Units and Gender Specific Reference Ranges. For more information see Policy Stat Procedure [place] High Sensitivity Troponin (TNIH) and attachments. 11 pg/mL 3.0-54.0 [facility] Estimated Creatinine Clearance Calc 28.41 ml/min [facility] Estimated GFR (MDRD) Amer 47 mL/min >60 [facility] Comment on above: GFR Calc Estimated GFR (MDRD) Non-Af Amer 39 mL/min >60 [facility] Comment on above: Non- GFR Calc 39 mL/min >60 [facility] 47 mL/min >60 [facility] 28.41 ml/min [facility] 16.8 RATIO 10-20 [facility] 32.0 mmol/L 21.0-32.0 [facility] 31.7 pg 27.0-32.0 [facility] 14.4 % 11.6-14.6 [facility] 52.0 fl 35.1-43.9 [facility] 0.800 % 0.0-0.9 [facility] 0 % 0-5 [facility] Platelets bldOrdered By: Cristina Huddleston on 06-10-2023 Platelets (Bld) [#/Vol] 276 10*3/uL 150-450 [facility] Serum or plasma calcium mariel urement (mass/volume)Ordered By: Jim Huddleston on 06-10-2023 Calcium [Mass/Vol] 8.6 mg/dL 8.5-10.1 [facility] Serum or plasma creatinine m easurement (mass/volume)Ordered By: Jim Huddleston on 06-10-2023 Creatinine [Mass/Vol] 1.43 mg/dL 0.55-1.02 [facility] Comment on above: The validity of the calculated GFR & GFRAA in patients over 70 years has not been determined. Clinical correlation is essential. Serum or plasma urea nitroge n measurement (mass/volume)Ordered By: Jim Huddleston on 06-10-2023 Urea nitrogen [Mass/Vol] 24 mg/dL 7-18 [facility] Thin prep Papanicolaou smear with manual screeningOrdered By: Jim Huddleston on 06-10-2023 Thin prep Papanicolaou smear with manual screening 2 5-15 [facility] Absolute lymphocyte countOrd ered By: Roger Yang on 06-05-2023 Lymphocytes Auto (Unsp spec) [#/Vol] 0.73 10*3/uL 0.83-4.51 [facility] Basophil percentageOrdered B y: Tarun Kennedy on 06-05-2023 Basophil percentage 168 mg/dL 74-106 [facility] Basophil percentage 6.5 g/dL 6.4-8.2 [facility] Basophil percentage 1.10 mg/dL 0.20-1.00 [facility] Basophil percentage 142 mmol/L 136-145 [facility] Basophil percentage 3.6 mmol/L 3.5-5.1 [facility] Basophil percentage 106 mmol/L 98-107 [facility] Bilirubin [Mass/Vol] 1.10 mg/dL 0.20-1.00 [facility] Comment on above: For patients on eltr ombopag therapy, use of Dimension [place] TBIL is not recommended. Chloride [Moles/Vol] 106 mmol/L 98-107 [facility] Glucose [Mass/Vol] 168 mg/dL 74-106 [facility] Comment on above: Fasting Glucose resu lt greater than or equal to 126 mg/dL suggests DIABETES MELLITUS per A.D.A. criteria. Potassium [Moles/Vol] 3.6 mmol/L 3.5-5.1 [facility] Protein [Mass/Vol] 6.5 g/dL 6.4-8.2 [facility] Sodium [Moles/Vol] 142 mmol/L 136-145 [facility] Basophil percentageOrdered B y: Roger Yang on 06-05-2023 Basophils (Bld) [#/Vol] 6.9 10*3/uL 4.4-11.0 [facility] Basophils (Bld) [#/Vol] 5.0 10*3/uL 2.0-7.7 [facility] Basophils/100 WBC (Bld) 0.3 % 0-[address] [facility] Basophils/100 WBC (Bld) 72.2 % 47-[address] [facility] Basophils/100 WBC (Bld) 4.1 % 0-[address] [facility] Eosinophils/100 WBC (Bld) 4.1 % 0-5 [facility] Neutrophils (Bld) [#/Vol] 5.0 10*3/uL 2.0-7.7 [facility] Neutrophils/100 WBC (Bld) 72.2 % 47-70 [facility] WBC (Bld) [#/Vol] 6.9 10*3/uL 4.4-11.0 [facility] Blood erythrocytes count (nu mber/volume)Ordered By: Roger Yang on 06-05-2023 RBC (Bld) [#/Vol] 3.73 10*6/uL 4.2-5.4 [facility] Blood hemoglobin measurement (mass/volume)Ordered By: Roger Yang on 06-05-2023 Hemoglobin (Bld) [Mass/Vol] 11.5 g/dL 12.0-15.0 [facility] Blood lymphocytes/100 leukoc ytesOrdered By: Roger Yang on 06-05-2023 Lymphocytes/100 WBC (Bld) 10.6 % 19-41 [facility] Blood monocytes/100 leukocyt esOrdered By: Roger Yang on 06-05-2023 Monocytes/100 WBC (Bld) 12.2 % 0-[address] [facility] Blood platelet mean volumeOr dered By: Roger Yang on 06-05-2023 Platelet mean volume (Bld) [Entitic vol] 10.0 fL 6.2-12.0 [facility] Determination of erythrocyte mean corpuscular volume (MCV)Ordered By: Roger Yang on 06-05-2023 MCV (RBC) [Entitic vol] 97.9 fL 81-[address] [facility] Glucose Glucometer (BldC) [M ass/Vol]Ordered By: Roger Yang on 06-05-2023 Glucose [Mass/Vol] 194 mg/dL 74-106 [facility] Comment on above: MANAGEMENT OF PATIEN T CARE PER NURSING PROTOCOL Hematocrit Auto (Bld) [Volum e fraction]Ordered By: Roger Yang on 06-05-2023 Hematocrit (Bld) [Volume fraction] 36.5 % 37-47 [facility] Laboratory - Chemistry and C hemistry - challengeOrdered By: Tarun Kennedy on 06-05-2023 ALP [Catalytic activity/Vol] 79 U/L 45-117 [facility] ALT [Catalytic activity/Vol] 21 U/L 13-56 [facility] CO2 [Moles/Vol] 32.0 mmol/L 21.0-32.0 [facility] Globulin (S) [Mass/Vol] 4.0 g/dL 2.2-4.[address] [facility] Urea nitrogen/Creatinine [Mass ratio] 15.2 mg/mg 10-20 [facility] Laboratory - Hematology and Cell countsOrdered By: Roger Yang on 06-05-2023 Erythrocyte distribution width (RBC) [Entitic vol] 50.3 fL 35.1-43.9 [facility] Erythrocyte distribution width (RBC) [Ratio] 14.2 % 11.6-14.6 [facility] Immature granulocytes/100 WBC (Bld) 0.600 % 0.0-0.9 [facility] Comment on above: IG% - Immature Granu locytes (promyelocytes, myelocytes and metamyelocytes) > 1% indicates that a LEFT SHIFT is Present. MCH (RBC) [Entitic mass] 30.8 pg 27.0-32.0 [facility] Nucleated RBC/100 WBC (Bld) [Ratio] 0 % 0-5 [facility] MCHC Auto (RBC) [Mass/Vol]Or dered By: Roger Yang on 06-05-2023 MCHC (RBC) [Mass/Vol] 31.5 g/dL 32-36 [facility] No Panel InformationOrdered By: Tarun Kennedy on 06-05-2023 Estimated Creatinine Clearance Calc 36.28 ml/min [facility] Estimated GFR (MDRD) Amer 62 mL/min >60 [facility] Comment on above: GFR Calc Estimated GFR (MDRD) Non-Af Amer 51 mL/min >60 [facility] Comment on above: Non- GFR Calc 51 mL/min >60 [facility] 62 mL/min >60 [facility] 36.28 ml/min [facility] 15.2 RATIO 10-20 [facility] 4.0 g/dL 2.2-4.2 [facility] 79 U/L 45-117 [facility] 21 U/L 13-56 [facility] 32.0 mmol/L 21.0-32.0 [facility] No Panel InformationOrdered By: Roger Yang on 06-05-2023 30.8 pg 27.0-32.0 [facility] 14.2 % 11.6-14.6 [facility] 50.3 fl 35.1-43.9 [facility] 0.600 % 0.0-0.9 [facility] 0 % 0-5 [facility] Platelets bldOrdered By: Roberth Yang on 06-05-2023 Platelets (Bld) [#/Vol] 180 10*3/uL 150-450 [facility] Serum or plasma albumin mariel urement (mass/volume)Ordered By: Tarun Kennedy on 06-05-2023 Albumin [Mass/Vol] 2.5 g/dL 3.2-5.0 [facility] Serum or plasma albumin/glob ulin mass ratioOrdered By: Tarun Kennedy on 06-05-2023 Albumin/Globulin [Mass ratio] 0.6 {ratio} 0.9-2.4 [facility] Serum or plasma calcium mariel urement (mass/volume)Ordered By: Tarun Kennedy on 06-05-2023 Calcium [Mass/Vol] 8.7 mg/dL 8.5-10.1 [facility] Serum or plasma creatinine m easurement (mass/volume)Ordered By: Tarun Kennedy on 06-05-2023 Creatinine [Mass/Vol] 1.12 mg/dL 0.55-1.02 [facility] Comment on above: The validity of the calculated GFR & GFRAA in patients over 70 years has not been determined. Clinical correlation is essential. Serum or plasma urea nitroge n measurement (mass/volume)Ordered By: Tarun Kennedy on 06-05-2023 Urea nitrogen [Mass/Vol] 17 mg/dL 7-18 [facility] Thin prep Papanicolaou smear with manual screeningOrdered By: Tarun Kennedy on 06-05-2023 Thin prep Papanicolaou smear with manual screening 19 U/L 15-37 [facility] Thin prep Papanicolaou smear with manual screening 4 5-15 [facility] Direct bilirubinOrdered By: Maria Fernanda Moss on 06-03-2023 Bilirubin.direct [Mass/Vol] 0.42 mg/dL 0.00-0.30 [facility] Laboratory - Chemistry and C hemistry - challengeOrdered By: Maria Fernanda Moss on 06-03-2023 Lipase [Catalytic activity/Vol] 21 U/L - [facility] Comment on above: Please note:LIPASE r evised reference range effective 22. New Lipase methodology. Expected to produce lower values than the previous assay method. NEW Reference Range: 13 - 75 U/L No Panel InformationOrdered By: Yared Fernández on 06-03-2023 Troponin I High Sensitivity 9 pg/mL 3.0-54.0 [facility] Comment on above: Please Note: New [place] t Units and Gender Specific Reference Ranges. For more information see Policy Stat Procedure [place] High Sensitivity Troponin (TNIH) and attachments. 9 pg/mL 3.0-54.0 [facility] No Panel InformationOrdered By: Maria Fernanda Moss on 06-03-2023 21 U/L 13-75 [facility] HEMOGLOBIN A1C (POC)on 05-13 HbA1c (Bld) [Mass fraction] 7.9 % Abnormal 4.2 - 5.6 % [facility] Absolute lymphocyte countOrd ered By: Maria Fernanda Moss on 04-23-2023 Lymphocytes Auto (Unsp spec) [#/Vol] 1.30 10*3/uL 0.83-4.51 [facility] Basophil percentageOrdered B y: Maria Fernanda Moss on 04-23-2023 Basophil percentage 152 mg/dL 74-106 [facility] Basophil percentage 139 mmol/L 136-145 [facility] Basophil percentage 3.7 mmol/L 3.5-5.1 [facility] Basophil percentage 103 mmol/L 98-107 [facility] Basophils (Bld) [#/Vol] 7.3 10*3/uL 4.4-11.0 [facility] Basophils (Bld) [#/Vol] 4.9 10*3/uL 2.0-7.7 [facility] Basophils/100 WBC (Bld) 0.4 % 0-[address] [facility] Basophils/100 WBC (Bld) 67.1 % 47-[address] [facility] Basophils/100 WBC (Bld) 4.2 % 0-[address] [facility] Chloride [Moles/Vol] 103 mmol/L 98-107 [facility] Eosinophils/100 WBC (Bld) 4.2 % 0-5 [facility] Glucose [Mass/Vol] 152 mg/dL 74-106 [facility] Comment on above: Fasting Glucose resu lt greater than or equal to 126 mg/dL suggests DIABETES MELLITUS per A.D.A. criteria. Neutrophils (Bld) [#/Vol] 4.9 10*3/uL 2.0-7.7 [facility] Neutrophils/100 WBC (Bld) 67.1 % 47-70 [facility] Potassium [Moles/Vol] 3.7 mmol/L 3.5-5.1 [facility] Sodium [Moles/Vol] 139 mmol/L 136-145 [facility] WBC (Bld) [#/Vol] 7.3 10*3/uL 4.4-11.0 [facility] Blood erythrocytes count (nu mber/volume)Ordered By: Maria Fernanda Moss on 04-23-2023 RBC (Bld) [#/Vol] 4.53 10*6/uL 4.2-5.4 [facility] Blood hemoglobin measurement (mass/volume)Ordered By: Maria Fernanda Moss on 04-23-2023 Hemoglobin (Bld) [Mass/Vol] 14.0 g/dL 12.0-15.0 [facility] Blood lymphocytes/100 leukoc ytesOrdered By: Maria Fernanda Moss on 04-23-2023 Lymphocytes/100 WBC (Bld) 17.7 % 19-41 [facility] Blood monocytes/100 leukocyt esOrdered By: Maria Fernanda Moss on 04-23-2023 Monocytes/100 WBC (Bld) 9.8 % 0-[address] [facility] Blood platelet mean volumeOr dered By: Maria Fernanda Moss on 04-23-2023 Platelet mean volume (Bld) [Entitic vol] 10.3 fL 6.2-12.0 [facility] Determination of erythrocyte mean corpuscular volume (MCV)Ordered By: Maria Fernanda Moss on 04-23-2023 MCV (RBC) [Entitic vol] 96.0 fL 81-[address] [facility] Hematocrit Auto (Bld) [Volum e fraction]Ordered By: Maria Fernanda Moss on 04-23-2023 Hematocrit (Bld) [Volume fraction] 43.5 % 37-47 [facility] Laboratory - Chemistry and C hemistry - challengeOrdered By: Maria Fernanda Moss on 04-23-2023 CO2 [Moles/Vol] 32.0 mmol/L 21.0-32.0 [facility] Urea nitrogen/Creatinine [Mass ratio] 18.7 mg/mg 10-20 [facility] Laboratory - Hematology and Cell countsOrdered By: Maria Fernanda Moss on 04-23-2023 Erythrocyte distribution width (RBC) [Entitic vol] 47.5 fL 35.1-43.9 [facility] Erythrocyte distribution width (RBC) [Ratio] 13.4 % 11.6-14.6 [facility] Immature granulocytes/100 WBC (Bld) 0.800 % 0.0-0.9 [facility] Comment on above: IG% - Immature Granu locytes (promyelocytes, myelocytes and metamyelocytes) > 1% indicates that a LEFT SHIFT is Present. MCH (RBC) [Entitic mass] 30.9 pg 27.0-32.0 [facility] Nucleated RBC/100 WBC (Bld) [Ratio] 0 % 0-5 [facility] Auto (RBC) [Mass/Vol]Or dered By: Maria Fernanda Moss on 04-23-2023 MCHC (RBC) [Mass/Vol] 32.2 g/dL 32-36 [facility] No Panel InformationOrdered By: Maria Fernanda Moss on 04-23-2023 Troponin I High Sensitivity 9 pg/mL 3.0-54.0 [facility] Comment on above: Please Note: New [place] t Units and Gender Specific Reference Ranges. For more information see Policy Stat Procedure [place] High Sensitivity Troponin (TNIH) and attachments. 9 pg/mL 3.0-54.0 [facility] Estimated Creatinine Clearance Calc 33.03 ml/min [facility] Estimated GFR (MDRD) Amer 56 mL/min >60 [facility] Comment on above: GFR Calc Estimated GFR (MDRD) Non-Af Amer 46 mL/min >60 [facility] Comment on above: Non- GFR Calc 30.9 pg 27.0-32.0 [facility] 13.4 % 11.6-14.6 [facility] 47.5 fl 35.1-43.9 [facility] 0.800 % 0.0-0.9 [facility] 0 % 0-5 [facility] 46 mL/min >60 [facility] 56 mL/min >60 [facility] 33.03 ml/min [facility] 18.7 RATIO 10-20 [facility] 32.0 mmol/L 21.0-32.0 [facility] Platelets bldOrdered By: Zaira Moss on 04-23-2023 Platelets (Bld) [#/Vol] 196 10*3/uL 150-450 [facility] Serum or plasma calcium mariel urement (mass/volume)Ordered By: Maria Fernanda Moss on 04-23-2023 Calcium [Mass/Vol] 9.3 mg/dL 8.5-10.1 [facility] Serum or plasma creatinine m easurement (mass/volume)Ordered By: Maria Fernanda Moss on 04-23-2023 Creatinine [Mass/Vol] 1.23 mg/dL 0.55-1.02 [facility] Comment on above: The validity of the calculated GFR & GFRAA in patients over 70 years has not been determined. Clinical correlation is essential. Serum or plasma urea nitroge n measurement (mass/volume)Ordered By: Maria Fernanda Moss on 04-23-2023 Urea nitrogen [Mass/Vol] 23 mg/dL 7-18 [facility] Thin prep Papanicolaou smear with manual screeningOrdered By: Maria Fernanda oMss on 04-23-2023 Thin prep Papanicolaou smear with manual screening 4 5-15 [facility] CBC W Auto Differential pane l (Bld)on 03-18-2023 Basophils (Bld) [#/Vol] 0.04 10*3/uL <0.11 k/uL [facility] Basophils/100 WBC (Bld) 0.5 % [facility] Differential cell count method Nom (Bld) Auto [facility] Eosinophils (Bld) [#/Vol] 0.39 10*3/uL <0.46 k/uL [facility] Eosinophils/100 WBC (Bld) 4.8 % [facility] Erythrocyte distribution width (RBC) [Ratio] 13.8 % 11.5 - 15.0 % [facility] Hematocrit (Bld) [Volume fraction] 42.7 % 36.0 - 46.0 % [facility] Hemoglobin (Bld) [Mass/Vol] 13.3 g/dL 11.5 - 15.5 g/dL [facility] Immature granulocytes (Bld) [#/Vol] 0.06 10*3/uL <0.10 k/uL [facility] Immature granulocytes/100 WBC (Bld) 0.7 % [facility] Lymphocytes (Bld) [#/Vol] 1.41 10*3/uL 1.00 - 4.00 k/uL [facility] Lymphocytes/100 WBC (Bld) 17.3 % [facility] MCH (RBC) [Entitic mass] 31.9 pg 26.0 - 34.0 pg [facility] MCHC (RBC) [Mass/Vol] 31.1 g/dL 30.5 - 36.0 g/dL [facility] MCV (RBC) [Entitic vol] 102.4 fL High 80.0 - 100.0 fL [facility] Monocytes (Bld) [#/Vol] 0.77 10*3/uL <0.87 k/uL [facility] Monocytes/100 WBC (Bld) 9.4 % [facility] Neutrophils (Bld) [#/Vol] 5.50 10*3/uL 1.45 - 7.50 k/uL [facility] Neutrophils/100 WBC (Bld) 67.3 % [facility] Nucleated RBC (Bld) [#/Vol] <0.01 k/uL [facility] Nucleated RBC/100 WBC (Bld) [Ratio] 0.0 /100 WBC [facility] Platelet mean volume (Bld) [Entitic vol] 11.2 fL 9.0 - 12.7 fL [facility] Platelets (Bld) [#/Vol] 207 10*3/uL 150 - 400 k/uL [facility] RBC (Bld) [#/Vol] 4.17 10*6/uL 3.90 - 5.2 0 m/uL [facility] WBC (Bld) [#/Vol] 8.17 10*3/uL 3.70 - 11. 00 k/uL [facility] XR Knee - bilateral 4 Viewso n 02-28-2023 IMPRESSION: No acute osseous abnormality Health Equipment Servicer: [employer] Transcribe Date/Time: Feb 28 2023 1:41P Dictated by : RICHARD BENAVIDES MD This examination was interpreted and the report reviewed and electronically signed by: RICHARD BENAVIDES MD on Feb 28 2023 1:43PM [facility] DIVISION OF RADIOLOGY * * *Final Report* [...] the left femur. DIVISION OF RADIOLOGY [facility] * * *Final Report* * [...] femur. IMPRESSION IMPRESSION: No acute osseous abnormality Health Equipment Servicer: [facility] Transcribe Date/Time: Feb 28 2023 1:41P Dictated by : RICHRAD BENAVIDES MD This examination was interpreted and the report reviewed and electronically signed by: RICHARD BENAVIDES MD on Feb 28 2023 1:43PM EST [facility] Radiology Study observation (narrative) [facility] XR Knee - bilateral 4 ViewsO rdered By: [facility] Provider on 02-28-2023 [facility] XR Chest PA and Lateralon IMPRESSION: No acute radiographic abnormality in the lungs. Cardiomegaly/enlargement of the cardiac silhouette. Health Equipment Servicer: [facility] Transcribe Date/Time: Feb 06 2023 4:34P Dictated by : LEAH GORDON MD This examination was interpreted and the report reviewed and electronically signed by: LEAH GORDON MD on Feb 06 2023 4:35PM [facility] DIVISION OF RADIOLOGY * * *Final Report* [...] and degenerative changes. DIVISION OF RADIOLOGY Provider, Margie [facility]ina [place] - 02/06/2023 * * *Final Report* * [...] the lungs. Cardiomegaly/enlargement of the cardiac silhouette. Health Equipment Servicer: [facility] Transcribe Date/Time: Feb 06 2023 4:34P Dictated by : LEAH GORDON MD This examination was interpreted and the report reviewed and electronically signed by: LEAH GORDON MD on Feb 06 2023 4:35PM [facility] Radiology Study observation (narrative) [facility] XR Chest PA and LateralOrder ed By: [facility] Provider on 02-06-2023 [facility] Absolute lymphocyte countOrd ered By: Dr. Regalado on 2023 Lymphocytes Auto (Unsp spec) [#/Vol] 1.01 10*3/uL 0.83-4.51 [facility] Basophil percentageOrdered B y: Dr. Regalado on 2023 Basophil percentage 0-5 SEEN /hpf 0-5 [facility] Basophil percentage 112 mg/dL 74-106 [facility] Basophil percentage 137 mmol/L 136-145 [facility] Basophil percentage 3.6 mmol/L 3.5-5.1 [facility] Basophil percentage 107 mmol/L 98-107 [facility] Basophils (Bld) [#/Vol] 6.6 10*3/uL 4.4-11.0 [facility] Basophils (Bld) [#/Vol] 4.8 10*3/uL 2.0-7.7 [facility] Basophils/100 WBC (Bld) 72.5 % 47-[address] [facility] Basophils/100 WBC (Bld) 2.3 % 0-[address] [facility] Basophils/100 WBC (Bld) 0.3 % 0-[address] [facility] Basophil percentageOrdered B y: Alex Regalado on 2023 Chloride [Moles/Vol] 107 mmol/L 98-107 [facility] Eosinophils/100 WBC (Bld) 2.3 % 0-5 [facility] Glucose [Mass/Vol] 112 mg/dL 74-106 [facility] Comment on above: Fasting Glucose resu lt from 100 to 125 mg/dL suggests IMPAIRED HOMEOSTASIS per A.D.A. criteria. Neutrophils (Bld) [#/Vol] 4.8 10*3/uL 2.0-7.7 [facility] Neutrophils/100 WBC (Bld) 72.5 % 47-70 [facility] Potassium [Moles/Vol] 3.6 mmol/L 3.5-5.1 [facility] Sodium [Moles/Vol] 137 mmol/L 136-145 [facility] WBC (Bld) [#/Vol] 6.6 10*3/uL 4.4-11.0 [facility] Bilirubin Test strip Ql (U)O rdered By: Dr. Regalado on 2023 Bilirubin Ql (U) Negative Negative [facility] Blood erythrocytes count (nu mber/volume)Ordered By: Dr. Regalado on 2023 RBC (Bld) [#/Vol] 4.48 10*6/uL 4.2-5.4 [facility] Blood hemoglobin measurement (mass/volume)Ordered By: Dr. Regalado on 2023 Hemoglobin (Bld) [Mass/Vol] 13.7 g/dL 12.0-15.0 [facility] Blood lymphocytes/100 leukoc ytesOrdered By: Dr. Regalado on 2023 Lymphocytes/100 WBC (Bld) 15.4 % 19-41 [facility] Blood monocytes/100 leukocyt esOrdered By: Dr. Regalado on 2023 Monocytes/100 WBC (Bld) 9.0 % 0-[address] [facility] Blood platelet mean volumeOr dered By: Dr. Regalado on 2023 Platelet mean volume (Bld) [Entitic vol] 10.7 fL 6.2-12.0 [facility] Determination of erythrocyte mean corpuscular volume (MCV)Ordered By: Dr. Regalado on 2023 MCV (RBC) [Entitic vol] 98.9 fL 81-[address] [facility] Hematocrit Auto (Bld) [Volum e fraction]Ordered By: Dr. Regalado on 2023 Hematocrit (Bld) [Volume fraction] 44.3 % 37-47 [facility] Influenza virus A and B and SARS-CoV-2 (COVID-19) Ag panel - Upper respiratory specimOrdered By: Alex Regalado on 2023 SARS-CoV-2 (COVID-19) RNA SANDRA+probe Ql (Resp) [facility] Influenza virus A and B and SARS-CoV-2 (COVID-19) Ag panel - Upper respiratory specimOrdered By: Dr. Regalado on 2023 SARS-CoV-2 (COVID-19) RNA SANDRA+probe Ql (Resp) [facility] Ketones Test strip Ql (U)Ord ered By: Dr. Regalado on 2023 Ketones Ql (U) Negative Negative [facility] Laboratory - Chemistry and C hemistry - challengeOrdered By: Alex Regalado on 2023 CO2 [Moles/Vol] 29.0 mmol/L 21.0-32.0 [facility] Urea nitrogen/Creatinine [Mass ratio] 21.0 mg/mg 10-20 [facility] Laboratory - Hematology and Cell countsOrdered By: Alex Regalado on 2023 Erythrocyte distribution width (RBC) [Entitic vol] 54.6 fL 35.1-43.9 [facility] Erythrocyte distribution width (RBC) [Ratio] 15.0 % 11.6-14.6 [facility] Immature granulocytes/100 WBC (Bld) 0.500 % 0.0-0.9 [facility] Comment on above: IG% - Immature Granu locytes (promyelocytes, myelocytes and metamyelocytes) > 1% indicates that a LEFT SHIFT is Present. MCH (RBC) [Entitic mass] 30.6 pg 27.0-32.0 [facility] Nucleated RBC/100 WBC (Bld) [Ratio] 0 % 0-5 [facility] MCHC Auto (RBC) [Mass/Vol]Or dered By: Dr. Regalado on 2023 MCHC (RBC) [Mass/Vol] 30.9 g/dL 32-36 [facility] Mucus LM Ql (Urine sed)Order ed By: Dr. Regalado on 2023 Mucus Ql (Urine sed) 0 SEEN /hpf [facility] Nitrite Test strip Ql (U)Ord ered By: Dr. Regalado on 2023 Nitrite Ql (U) Negative Negative [facility] No Panel InformationOrdered By: Alex Regalado on 2023 Estimated Creatinine Clearance Calc 34.14 ml/min [facility] Estimated GFR (MDRD) Amer 58 mL/min >60 [facility] Comment on above: GFR Calc Estimated GFR (MDRD) Non-Af Amer 48 mL/min >60 [facility] Comment on above: Non- GFR Calc Troponin I High Sensitivity 13 pg/mL 3.0-54.0 [facility] Comment on above: Please Note: New [place] Units and Gender Specific Reference Ranges. For more information see Policy Stat Procedure [place] High Sensitivity Troponin (TNIH) and attachments. No Panel InformationOrdered By: Dr. Regalado on 2023 30.6 pg 27.0-32.0 [facility] 15.0 % 11.6-14.6 [facility] 54.6 fl 35.1-43.9 [facility] 0.500 % 0.0-0.9 [facility] 0 % 0-5 [facility] 48 mL/min >60 [facility] 58 mL/min >60 [facility] 34.14 ml/min [facility] 21.0 RATIO 10-20 [facility] 13 pg/mL 3.0-54.0 [facility] 29.0 mmol/L 21.0-32.0 [facility] Platelets bldOrdered By: Dr. Regalado on 2023 Platelets (Bld) [#/Vol] 168 10*3/uL 150-450 [facility] Protein Test strip Ql (U)Ord ered By: Dr. Regalado on 2023 Protein Ql (U) 30 mg/dl Negative [facility] Serum or plasma calcium mariel urement (mass/volume)Ordered By: Dr. Regalado on 2023 Calcium [Mass/Vol] 9.1 mg/dL 8.5-10.1 [facility] Serum or plasma creatinine m easurement (mass/volume)Ordered By: Dr. Regalado on 2023 Creatinine [Mass/Vol] 1.19 mg/dL 0.55-1.02 [facility] Comment on above: The validity of the calculated GFR & GFRAA in patients over 70 years has not been determined. Clinical correlation is essential. Serum or plasma urea nitroge n measurement (mass/volume)Ordered By: Dr. Regalado on 2023 Urea nitrogen [Mass/Vol] 25 mg/dL 7-18 [facility] Squamous epithelial cells de tection in urine sediment by light microscopyOrdered By: Dr. Regalado on 2023 Epithelial cells.squamous LM Ql (Urine sed) 0 SEEN /hpf 5-10 [facility] Thin prep Papanicolaou smear with manual screeningOrdered By: Dr. Regalado on 2023 Thin prep Papanicolaou smear with manual screening 1 5-15 [facility] Urine blood detectionOrdered By: Dr. Regalado on 2023 RBC Ql (U) 10 /ul Negative [facility] RBC Ql (U) 0 SEEN /hpf 0-5 [facility] Urine clarityOrdered By: Dr. Regalado on 2023 Clarity (U) Clear Clear [facility] Urine color determinationOrd ered By: Dr. Regalado on 2023 Color (U) Yellow Yellow [facility] Urine glucose detectionOrder ed By: Dr. Regalado on 2023 Glucose Ql (U) Normal mg/dl Normal [facility] Urine leukocyte esterase det ection by dipstickOrdered By: Dr. Regalado on 2023 Leukocyte esterase Test strip Ql (U) 25 /ul Negative [facility] Urine pHOrdered By: Dr. Malcolm fagan on 2023 pH (U) 6.0 [pH] 5.0 - 8.0 [facility] Urine sediment bacteria coun t by microscopy (number/high power field)Ordered By: Dr. Regalado on 2023 Bacteria LM.HPF (Urine sed) [#/Area] 1 /[HPF] None Seen [facility] Urine specific gravity measu rementOrdered By: Dr. Regalado on 2023 Specific gravity (U) [Rel density] 1.015 1.002-1.030 [facility] Urobilinogen Auto test strip Ql (U)Ordered By: Dr. Regalado on 2023 Urobilinogen Ql (U) Normal mg/dl Normal [facility] Absolute lymphocyte countOrd ered By: Thai Khan on 01-14-2023 Lymphocytes Auto (Unsp spec) [#/Vol] 0.65 10*3/uL 0.83-4.51 [facility] Basophil percentageOrdered B y: Thai Khan on 01-14-2023 Basophil percentage 179 mg/dL 74-106 [facility] Basophil percentage 141 mmol/L 136-145 [facility] Basophil percentage 3.8 mmol/L 3.5-5.1 [facility] Basophil percentage 109 mmol/L 98-107 [facility] Basophil percentage 2.1 mmol/L 0.4-2.0 [facility] Basophils (Bld) [#/Vol] 5.6 10*3/uL 4.4-11.0 [facility] Basophils (Bld) [#/Vol] 3.9 10*3/uL 2.0-7.7 [facility] Basophils/100 WBC (Bld) 0.2 % 0-[address] [facility] Basophils/100 WBC (Bld) 69.2 % 47-[address] [facility] Basophils/100 WBC (Bld) 7.2 % 0-5 [facility] Chloride [Moles/Vol] 109 mmol/L 98-107 [facility] Eosinophils/100 WBC (Bld) 7.2 % 0-5 [facility] Glucose [Mass/Vol] 179 mg/dL 74-106 [facility] Comment on above: Fasting Glucose resu lt greater than or equal to 126 mg/dL suggests DIABETES MELLITUS per A.D.A. criteria. Lactate [Moles/Vol] 2.1 mmol/L 0.4-2.0 [facility] Comment on above: Critical Result(s) C alled at: 02:06:00 01/14/2023 by: Renny Morales TO MIAH ENNIS RN (ED) Results read back by same. Neutrophils (Bld) [#/Vol] 3.9 10*3/uL 2.0-7.7 [facility] Neutrophils/100 WBC (Bld) 69.2 % 47-70 [facility] Potassium [Moles/Vol] 3.8 mmol/L 3.5-5.1 [facility] Comment on above: Slight Hemolysis, Re sult may be falsely increased. Sodium [Moles/Vol] 141 mmol/L 136-145 [facility] WBC (Bld) [#/Vol] 5.6 10*3/uL 4.4-11.0 [facility] Blood erythrocytes count (nu mber/volume)Ordered By: Thai Khan on 01-14-2023 RBC (Bld) [#/Vol] 4.40 10*6/uL 4.2-5.4 [facility] Blood hemoglobin measurement (mass/volume)Ordered By: Thai Khan on 01-14-2023 Hemoglobin (Bld) [Mass/Vol] 13.7 g/dL 12.0-15.0 [facility] Blood lymphocytes/100 leukoc ytesOrdered By: Thai Khan on 01-14-2023 Lymphocytes/100 WBC (Bld) 11.7 % 19-41 [facility] Blood monocytes/100 leukocyt esOrdered By: Thai Khan on 01-14-2023 Monocytes/100 WBC (Bld) 10.8 % 0-10 [facility] Blood platelet mean volumeOr dered By: Thai Khan on 01-14-2023 Platelet mean volume (Bld) [Entitic vol] 10.4 fL 6.2-12.0 [facility] Determination of erythrocyte mean corpuscular volume (MCV)Ordered By: Thai Khan on 01-14-2023 MCV (RBC) [Entitic vol] 99.5 fL 81-[address] [facility] Hematocrit Auto (Bld) [Volum e fraction]Ordered By: Thai Khan on 01-14-2023 Hematocrit (Bld) [Volume fraction] 43.8 % 37-47 [facility] Influenza virus A and B and SARS-CoV-2 (COVID-19) Ag panel - Upper respiratory specimOrdered By: Thai Khan on 01-14-2023 SARS-CoV-2 (COVID-19) RNA SANDRA+probe Ql (Resp) [facility] Laboratory - Chemistry and C hemistry - challengeOrdered By: Thai Khan on 01-14-2023 CO2 [Moles/Vol] 25.0 mmol/L 21.0-32.0 [facility] Magnesium [Mass/Vol] 2.0 mg/dL 1.6-2.6 [facility] Comment on above: Slight Hemolysis, Re sult may be falsely increased. Urea nitrogen/Creatinine [Mass ratio] 21.9 mg/mg 10-20 [facility] Laboratory - Hematology and Cell countsOrdered By: Thai Khan on 01-14-2023 Erythrocyte distribution width (RBC) [Entitic vol] 56.6 fL 35.1-43.9 [facility] Erythrocyte distribution width (RBC) [Ratio] 15.3 % 11.6-14.6 [facility] Immature granulocytes/100 WBC (Bld) 0.900 % 0.0-0.9 [facility] Comment on above: IG% - Immature Granu locytes (promyelocytes, myelocytes and metamyelocytes) > 1% indicates that a LEFT SHIFT is Present. MCH (RBC) [Entitic mass] 31.1 pg 27.0-32.0 [facility] Nucleated RBC/100 WBC (Bld) [Ratio] 0 % 0-5 [facility] MCHC Auto (RBC) [Mass/Vol]Or dered By: Thai Khan on 01-14-2023 MCHC (RBC) [Mass/Vol] 31.3 g/dL 32-36 [facility] No Panel InformationOrdered By: Thai Khan on 01-14-2023 Estimated Creatinine Clearance Calc 27.28 ml/min [facility] Estimated GFR (MDRD) Amer 44 mL/min >60 [facility] Comment on above: GFR Calc Estimated GFR (MDRD) Non-Af Amer 36 mL/min >60 [facility] Comment on above: Non- GFR Calc 31.1 pg 27.0-32.0 [facility] 15.3 % 11.6-14.6 [facility] 56.6 fl 35.1-43.9 [facility] 0.900 % 0.0-0.9 [facility] 0 % 0-5 [facility] 36 mL/min >60 [facility] 44 mL/min >60 [facility] 27.28 ml/min [facility] 21.9 RATIO 10-20 [facility] 2.0 mg/dL 1.6-2.6 [facility] 25.0 mmol/L 21.0-32.0 [facility] Platelets bldOrdered By: Jose Khan on 01-14-2023 Platelets (Bld) [#/Vol] 145 10*3/uL 150-450 [facility] Respiratory pathogens DNA an d RNA 12b panel SANDRA+probe (Unsp spec)Ordered By: Thai Khan on 01-14-2023 Respiratory Panel (PCR) Parainfluenza 3 [facility] Parainfluenza 3 [facility] Serum or plasma calcium mariel urement (mass/volume)Ordered By: Thai Khan on 01-14-2023 Calcium [Mass/Vol] 8.9 mg/dL 8.5-10.1 [facility] Serum or plasma creatinine m easurement (mass/volume)Ordered By: Thai Khan on 01-14-2023 Creatinine [Mass/Vol] 1.51 mg/dL 0.55-1.02 [facility] Comment on above: The validity of the calculated GFR & GFRAA in patients over 70 years has not been determined. Clinical correlation is essential. Serum or plasma urea nitroge n measurement (mass/volume)Ordered By: Thai Khan on 01-14-2023 Urea nitrogen [Mass/Vol] 33 mg/dL 7-18 [facility] Thin prep Papanicolaou smear with manual screeningOrdered By: Thai Khan on 01-14-2023 Thin prep Papanicolaou smear with manual screening 7 5-15 [facility] XR Foot - left AP and Latera l and obliqueon 01-12-2023 IMPRESSION: No acute abnormality Health Equipment Servicer: ALLEGRA Transcribe Date/Time: Jan 12 2023 4:40P Dictated by : JEFFERSON STEPHEN MD This examination was interpreted and the report reviewed and electronically signed by: JEFFERSON STEPHEN MD on Jan 12 2023 4:41PM [facility] DIVISION OF RADIOLOGY * * *Final Report* [...] tissues are unremarkable. DIVISION OF RADIOLOGY [facility] * * *Final Report* [...] are unremarkable. IMPRESSION IMPRESSION: No acute abnormality Health Equipment Servicer: ALLEGRA Transcribe Date/Time: Jan 12 2023 4:40P Dictated by : JEFFERSON STEPHEN MD This examination was interpreted and the report reviewed and electronically signed by: JEFFERSON STEPHEN MD on Jan 12 2023 4:41PM [facility] XR Foot - left AP and Latera l and obliqueOrdered By: [facility] Provider on 01-12-2023 [facility] XR Foot - left AP and Latera l and obliqueon 01-09-2023 Radiology Study observation (narrative) [facility] Absolute lymphocyte countOrd ered By: Dr. Castro on 01-03-2023 Lymphocytes Auto (Unsp spec) [#/Vol] 1.03 10*3/uL 0.83-4.51 [facility] Basophil percentageOrdered B y: Dr. Castro on 01-03-2023 Basophil percentage 183 mg/dL 74-106 [facility] Basophil percentage 140 mmol/L 136-145 [facility] Basophil percentage 3.7 mmol/L 3.5-5.1 [facility] Basophil percentage 109 mmol/L 98-107 [facility] Basophil percentage 1.0 mmol/L 0.4-2.0 [facility] Basophils (Bld) [#/Vol] 9.6 10*3/uL 4.4-11.0 [facility] Basophils (Bld) [#/Vol] 7.5 10*3/uL 2.0-7.7 [facility] Basophils/100 WBC (Bld) 0.3 % 0-[address] [facility] Basophils/100 WBC (Bld) 78.4 % 47-[address] [facility] Basophils/100 WBC (Bld) 2.1 % 0-[address] [facility] Chloride [Moles/Vol] 109 mmol/L 98-107 [facility] Eosinophils/100 WBC (Bld) 2.1 % 0-5 [facility] Glucose [Mass/Vol] 183 mg/dL 74-106 [facility] Comment on above: Fasting Glucose resu lt greater than or equal to 126 mg/dL suggests DIABETES MELLITUS per A.D.A. criteria. Lactate [Moles/Vol] 1.0 mmol/L 0.4-2.0 [facility] Neutrophils (Bld) [#/Vol] 7.5 10*3/uL 2.0-7.7 [facility] Neutrophils/100 WBC (Bld) 78.4 % 47-70 [facility] Potassium [Moles/Vol] 3.7 mmol/L 3.5-5.1 [facility] Sodium [Moles/Vol] 140 mmol/L 136-145 [facility] WBC (Bld) [#/Vol] 9.6 10*3/uL 4.4-11.0 [facility] Blood erythrocytes count (nu mber/volume)Ordered By: Dr. Castro on 01-03-2023 RBC (Bld) [#/Vol] 4.13 10*6/uL 4.2-5.4 [facility] Blood hemoglobin measurement (mass/volume)Ordered By: Dr. Castro on 01-03-2023 Hemoglobin (Bld) [Mass/Vol] 12.9 g/dL 12.0-15.0 [facility] Blood lymphocytes/100 leukoc ytesOrdered By: Dr. Castro on 01-03-2023 Lymphocytes/100 WBC (Bld) 10.7 % 19-41 [facility] Blood monocytes/100 leukocyt esOrdered By: Dr. Castro on 01-03-2023 Monocytes/100 WBC (Bld) 8.0 % 0-10 [facility] Blood platelet mean volumeOr dered By: Dr. Castro on 01-03-2023 Platelet mean volume (Bld) [Entitic vol] 9.9 fL 6.2-12.0 [facility] Determination of erythrocyte mean corpuscular volume (MCV)Ordered By: Dr. Castro on 01-03-2023 MCV (RBC) [Entitic vol] 95.2 fL 81-[address] [facility] Erythrocyte sedimentation ra teOrdered By: Dr. Castro on 01-03-2023 ESR (Bld) [Velocity] 19 mm/h 0-30 [facility] Hematocrit Auto (Bld) [Volum e fraction]Ordered By: Dr. Castro on 01-03-2023 Hematocrit (Bld) [Volume fraction] 39.3 % 37-47 [facility] Laboratory - Chemistry and C hemistry - challengeOrdered By: Dr. Castro on 01-03-2023 CO2 [Moles/Vol] 28.0 mmol/L 21.0-32.0 [facility] Urea nitrogen/Creatinine [Mass ratio] 29.0 mg/mg 10-20 [facility] Laboratory - Hematology and Cell countsOrdered By: Dr. Castro on 01-03-2023 Erythrocyte distribution width (RBC) [Entitic vol] 53.7 fL 35.1-43.9 [facility] Erythrocyte distribution width (RBC) [Ratio] 15.5 % 11.6-14.6 [facility] Immature granulocytes/100 WBC (Bld) 0.500 % 0.0-0.9 [facility] Comment on above: IG% - Immature Granu locytes (promyelocytes, myelocytes and metamyelocytes) > 1% indicates that a LEFT SHIFT is Present. MCH (RBC) [Entitic mass] 31.2 pg 27.0-32.0 [facility] Nucleated RBC/100 WBC (Bld) [Ratio] 0 % 0-5 [facility] MCHC Auto (RBC) [Mass/Vol]Or dered By: Dr. Castro on 01-03-2023 MCHC (RBC) [Mass/Vol] 32.8 g/dL 32-36 [facility] No Panel InformationOrdered By: Dr. Castro on 01-03-2023 Estimated Creatinine Clearance Calc 28.41 ml/min [facility] Estimated GFR (MDRD) Amer 46 mL/min >60 [facility] Comment on above: GFR Calc Estimated GFR (MDRD) Non-Af Amer 38 mL/min >60 [facility] Comment on above: Non- GFR Calc 31.2 pg 27.0-32.0 [facility] 15.5 % 11.6-14.6 [facility] 53.7 fl 35.1-43.9 [facility] 0.500 % 0.0-0.9 [facility] 0 % 0-5 [facility] 38 mL/min >60 [facility] 46 mL/min >60 [facility] 28.41 ml/min [facility] 29.0 RATIO 10-20 [facility] 28.0 mmol/L 21.0-32.0 [facility] Platelets bldOrdered By: Dr. Castro on 01-03-2023 Platelets (Bld) [#/Vol] 195 10*3/uL 150-450 [facility] Serum or plasma C reactive p rotein measurement (mass/volume)Ordered By: Dr. Castro on 01-03-2023 CRP [Mass/Vol] mg/L 0.0-3.0 [facility] Comment on above: C-Reactive Protein ( CRP) provides useful information for thediagnosis, therapy and monitoring of inflammatory processesand associated diseases. For the evaluation of Relative Riskfor Cardiovascular Disease, a High Sensitivity CRP (HSCRP)should be ordered. Serum or plasma calcium mariel urement (mass/volume)Ordered By: Dr. Castro on 01-03-2023 Calcium [Mass/Vol] 8.6 mg/dL 8.5-10.1 [facility] Serum or plasma creatinine m easurement (mass/volume)Ordered By: Dr. Castro on 01-03-2023 Creatinine [Mass/Vol] 1.45 mg/dL 0.55-1.02 [facility] Comment on above: The validity of the calculated GFR & GFRAA in patients over 70 years has not been determined. Clinical correlation is essential. Serum or plasma urea nitroge n measurement (mass/volume)Ordered By: Dr. Castro on 01-03-2023 Urea nitrogen [Mass/Vol] 42 mg/dL 7-18 [facility] Thin prep Papanicolaou smear with manual screeningOrdered By: Dr. Castro on 01-03-2023 Thin prep Papanicolaou smear with manual screening 3 5-15 [facility] Basophil percentageOrdered B y: Pancho Shultz on 12-20-2022 Basophil percentage 447 mg/dL 74-106 [facility] Basophil percentage 137 mmol/L 136-145 [facility] Basophil percentage 4.7 mmol/L 3.5-5.1 [facility] Basophil percentage 104 mmol/L 98-107 [facility] Basophils (Bld) [#/Vol] 9.4 10*3/uL 4.4-11.0 [facility] Chloride [Moles/Vol] 104 mmol/L 98-107 [facility] Glucose [Mass/Vol] 447 mg/dL 74-106 [facility] Comment on above: Glucose result great er than or equal to 200 mg/dLsuggests DIABETES MELLITUS per A.D.A. criteria. Potassium [Moles/Vol] 4.7 mmol/L 3.5-5.1 [facility] Sodium [Moles/Vol] 137 mmol/L 136-145 [facility] WBC (Bld) [#/Vol] 9.4 10*3/uL 4.4-11.0 [facility] Blood erythrocytes count (nu mber/volume)Ordered By: Pancho Shultz on 12-20-2022 RBC (Bld) [#/Vol] 3.78 10*6/uL 4.2-5.4 [facility] Blood hemoglobin measurement (mass/volume)Ordered By: Pancho Shultz on 12-20-2022 Hemoglobin (Bld) [Mass/Vol] 11.4 g/dL 12.0-15.0 [facility] Blood platelet mean volumeOr dered By: Pancho Shultz on 12-20-2022 Platelet mean volume (Bld) [Entitic vol] 10.4 fL 6.2-12.0 [facility] Determination of erythrocyte mean corpuscular volume (MCV)Ordered By: Pancho Shultz on 12-20-2022 MCV (RBC) [Entitic vol] 95.8 fL 81-99 [facility] Glucose Glucometer (BldC) [M ass/Vol]Ordered By: Dr. Leslie on 12-20-2022 Glucose [Mass/Vol] 302 mg/dL 74-106 [facility] Comment on above: MANAGEMENT OF PATIEN T CARE PER NURSING PROTOCOL Hematocrit Auto (Bld) [Volum e fraction]Ordered By: Pancho Shultz on 12-20-2022 Hematocrit (Bld) [Volume fraction] 36.2 % 37-47 [facility] Laboratory - Chemistry and C hemistry - challengeOrdered By: Pancho Shultz on 12-20-2022 CO2 [Moles/Vol] 30.0 mmol/L 21.0-32.0 [facility] Urea nitrogen/Creatinine [Mass ratio] 21.4 mg/mg 10-20 [facility] Laboratory - Hematology and Cell countsOrdered By: Pancho Shultz on 12-20-2022 Erythrocyte distribution width (RBC) [Entitic vol] 52.8 fL 35.1-43.9 [facility] Erythrocyte distribution width (RBC) [Ratio] 15.3 % 11.6-14.6 [facility] MCH (RBC) [Entitic mass] 30.2 pg 27.0-32.0 [facility] Auto (RBC) [Mass/Vol]Or dered By: Pancho Shultz on 12-20-2022 MCHC (RBC) [Mass/Vol] 31.5 g/dL 32-36 [facility] No Panel InformationOrdered By: Pancho Shultz on 12-20-2022 Estimated Creatinine Clearance Calc 25.91 ml/min [facility] Estimated GFR (MDRD) Amer 42 mL/min >60 [facility] Comment on above: GFR Calc Estimated GFR (MDRD) Non-Af Amer 34 mL/min >60 [facility] Comment on above: Non- GFR Calc 30.2 pg 27.0-32.0 [facility] 15.3 % 11.6-14.6 [facility] 52.8 fl 35.1-43.9 [facility] 34 mL/min >60 [facility] 42 mL/min >60 [facility] 25.91 ml/min [facility] 21.4 RATIO 10-20 [facility] 30.0 mmol/L 21.0-32.0 [facility] Platelets bldOrdered By: Pancho Shultz on 12-20-2022 Platelets (Bld) [#/Vol] 177 10*3/uL 150-450 [facility] Serum or plasma calcium mariel urement (mass/volume)Ordered By: Pancho Shultz on 12-20-2022 Calcium [Mass/Vol] 9.0 mg/dL 8.5-10.1 [facility] Serum or plasma creatinine m easurement (mass/volume)Ordered By: Pancho Shultz on 12-20-2022 Creatinine [Mass/Vol] 1.59 mg/dL 0.55-1.02 [facility] Comment on above: The validity of the calculated GFR & GFRAA in patients over 70 years has not been determined. Clinical correlation is essential. Serum or plasma urea nitroge n measurement (mass/volume)Ordered By: Pancho Shultz on 12-20-2022 Urea nitrogen [Mass/Vol] 34 mg/dL 7-18 [facility] Thin prep Papanicolaou smear with manual screeningOrdered By: Pancho Shultz on 12-20-2022 Thin prep Papanicolaou smear with manual screening 3 5-15 [facility] Absolute lymphocyte countOrd ered By: Pancho Shultz on 12-19-2022 Lymphocytes Auto (Unsp spec) [#/Vol] 0.51 10*3/uL 0.83-4.51 [facility] Basophil percentageOrdered B y: Pancho Shultz on 12-19-2022 Basophils (Bld) [#/Vol] 7.9 10*3/uL 2.0-7.7 [facility] Basophils/100 WBC (Bld) 0.2 % 0-[address] [facility] Basophils/100 WBC (Bld) 89.8 % 47-[address] [facility] Basophils/100 WBC (Bld) 0.0 % 0-[address] [facility] Eosinophils/100 WBC (Bld) 0.0 % 0-5 [facility] Neutrophils (Bld) [#/Vol] 7.9 10*3/uL 2.0-7.7 [facility] Neutrophils/100 WBC (Bld) 89.8 % 47-70 [facility] Blood lymphocytes/100 leukoc ytesOrdered By: Pancho Shultz on 12-19-2022 Lymphocytes/100 WBC (Bld) 5.8 % 19-41 [facility] Blood manual differential co mment interpretation (narrative result)Ordered By: Pancho Shultz on 12-19-2022 Manual differential comment Prashanth (Bld) [Interp] SCANNED [facility] Blood monocytes/100 leukocyt esOrdered By: Pancho Shultz on 12-19-2022 Monocytes/100 WBC (Bld) 3.7 % 0-[address] [facility] Laboratory - Hematology and Cell countsOrdered By: Pancho Shultz on 12-19-2022 Immature granulocytes/100 WBC (Bld) 0.500 % 0.0-0.9 [facility] Comment on above: IG% - Immature Granu locytes (promyelocytes, myelocytes and metamyelocytes) > 1% indicates that a LEFT SHIFT is Present. Nucleated RBC/100 WBC (Bld) [Ratio] 0 % 0-5 [facility] No Panel InformationOrdered By: Pancho Shultz on 12-19-2022 0.500 % 0.0-0.9 [facility] 0 % 0-5 [facility] No Panel InformationOrdered By: Dr. Leslie on 12-16-2022 Nasal Screen MRSA/MSSA [facility] Laboratory - Chemistry and C hemistry - challengeOrdered By: Dr. Rosario on 12-12-2022 Magnesium [Mass/Vol] 2.4 mg/dL 1.6-2.6 [facility] No Panel InformationOrdered By: Dr. Rosario on 12-12-2022 Thyroid Stimulating Hormone (TSH) 3.34 uIU/mL 0.358-3.74 [facility] 2.4 mg/dL 1.6-2.6 [facility] 3.34 uIU/mL 0.358-3.74 [facility] No Panel InformationOrdered By: Arlyn Leslie on 12-11-2022 Nasal Screen MRSA/MSSA [facility] Serum or plasma albumin mariel urement (mass/volume)Ordered By: Dr. Leslie on 12-11-2022 Albumin [Mass/Vol] 3.3 g/dL 3.2-5.0 [facility] Whole blood hemoglobin A1c/t otal hemoglobin ratio (mass fraction)Ordered By: Dr. Leslie on 12-11-2022 HbA1c (Bld) [Mass fraction] 8.5 % 3.8-5.6 [facility] Comment on above: Normal < 5.7 % Predi abetic 5.7 - 6.4 % Diabetic >or= 6.5 % Please note range changes. .Auto Diffon 11-07-2022 Basophil, Absolute 0.0 10 3/mcL Normal 0.0-0.2 [facility] ([place]) Comment on above: Performed By: #### A 1C, BMP, ALB, ANSG, ADIFF, ABOG, CBC, ANEU, GFR #### [id number] [place], [place] [address] Basophils/100 WBC (Bld) 0.3 % Normal 0.0-2.5 [facility] ([place]) Comment on above: Performed By: #### A 1C, BMP, ALB, ANSG, ADIFF, ABOG, CBC, ANEU, GFR #### [address] [address] Eosinophil, Absolute 0.2 10 3/mcL Normal 0.0-0.4 [facility] ([place]) Comment on above: Performed By: #### A 1C, BMP, ALB, ANSG, ADIFF, ABOG, CBC, ANEU, GFR #### [address] [address] Eosinophils/100 WBC (Bld) 3.2 % Normal 0.0-7.0 [facility] ([place]) Comment on above: Performed By: #### A 1C, BMP, ALB, ANSG, ADIFF, ABOG, CBC, ANEU, GFR #### [address] [address] Lymphocyte, Absolute 0.9 10 3/mcL Normal 0.8-3.9 [facility] ([place]) Comment on above: Performed By: #### A 1C, BMP, ALB, ANSG, ADIFF, ABOG, CBC, ANEU, GFR #### [address] [address] Lymphocytes/100 WBC (Bld) 12.2 % Normal 10.0-50.0 [facility] ([place]) Comment on above: Performed By: #### A 1C, BMP, ALB, ANSG, ADIFF, ABOG, CBC, ANEU, GFR #### [address] [address] Monocyte, Absolute 0.6 10 3/mcL Normal 0.2-1.0 [facility] ([place]) Comment on above: Performed By: #### A 1C, BMP, ALB, ANSG, ADIFF, ABOG, CBC, ANEU, GFR #### [address] [address] Monocytes/100 WBC (Bld) 7.4 % Normal 1.7-13.0 [facility] ([place]) Comment on above: Performed By: #### A 1C, BMP, ALB, ANSG, ADIFF, ABOG, CBC, ANEU, GFR #### [address] [address] Neutrophils/100 WBC (Bld) 76.9 % Normal 37.0-80.0 [facility] ([place]) Comment on above: Performed By: #### A 1C, BMP, ALB, ANSG, ADIFF, ABOG, CBC, ANEU, GFR #### [address] [address] .GFRon 11-07-2022 GFR 55 ml/min/1.73sqm Normal [facility] ([place]) Comment on above: Result Comment: GFR Population [...] ANSG, ADIFF, ABOG, CBC, ANEU, GFR #### [address] [address] GFR Non- 46 ml/min/1.73sqm Normal [facility] ([place]) Comment on above: Result Comment: GFR Population [...] ANSG, ADIFF, ABOG, CBC, ANEU, GFR #### [address] [address] .NEUABSon 11-07-2022 Neutrophil, Absolute 5.7 10 3/mcL Normal 2.9-6.2 [facility] ([place]) Comment on above: Performed By: #### A 1C, BMP, ALB, ANSG, ADIFF, ABOG, CBC, ANEU, GFR #### [address] [address] A1Con 11-07-2022 HbA1c (Bld) [Mass fraction] 7.5 % High 4.3-6.4 [facility] ([place]) Comment on above: Performed By: #### A 1C, BMP, ALB, ANSG, ADIFF, ABOG, CBC, ANEU, GFR #### [address] [address] ALBon 11-07-2022 Albumin Level 3.1 G/dL Low 3.4-4.8 [facility] ([place]) Comment on above: Performed By: #### A 1C, BMP, ALB, ANSG, ADIFF, ABOG, CBC, ANEU, GFR #### [address] [address] [facility] BUN/Creatinine Ratio 23 ratio Normal 7-27 [facility] ([place]) Comment on above: Performed By: #### A 1C, BMP, ALB, ANSG, ADIFF, ABOG, CBC, ANEU, GFR #### [address] [address] Calcium [Mass/Vol] 8.9 mg/dL Normal 8.4-10.2 [facility] ([place]) Comment on above: Performed By: #### A 1C, BMP, ALB, ANSG, ADIFF, ABOG, CBC, ANEU, GFR #### [address] [address] Chloride [Moles/Vol] 106 mmol/L Normal 98-107 [facility] ([place]) Comment on above: Performed By: #### A 1C, BMP, ALB, ANSG, ADIFF, ABOG, CBC, ANEU, GFR #### [address] [address] CO2 [Moles/Vol] 34 mmol/L High 23-31 [facility] ([place]) Comment on above: Performed By: #### A 1C, BMP, ALB, ANSG, ADIFF, ABOG, CBC, ANEU, GFR #### [address] [address] Creatinine [Mass/Vol] 1.18 mg/dL High 0.55-1.02 [facility] ([place]) Comment on above: Performed By: #### A 1C, BMP, ALB, ANSG, ADIFF, ABOG, CBC, ANEU, GFR #### [address] [address] Electrolyte Balance 5.0 mEq/L Normal 4.0-15.0 [facility] ([place]) Comment on above: Performed By: #### A 1C, BMP, ALB, ANSG, ADIFF, ABOG, CBC, ANEU, GFR #### [address] [address] Glucose [Mass/Vol] 116 mg/dL High 80-115 [facility] ([place]) Comment on above: Performed By: #### A 1C, BMP, ALB, ANSG, ADIFF, ABOG, CBC, ANEU, GFR #### [address] [address] Potassium [Moles/Vol] 3.7 mmol/L Normal 3.5-5.1 [facility] ([place]) Comment on above: Performed By: #### A 1C, BMP, ALB, ANSG, ADIFF, ABOG, CBC, ANEU, GFR #### [address] [address] Sodium [Moles/Vol] 145 mmol/L Normal 136-145 [facility] ([place]) Comment on above: Performed By: #### A 1C, BMP, ALB, ANSG, ADIFF, ABOG, CBC, ANEU, GFR #### [address] [address] Urea nitrogen [Mass/Vol] 27 mg/dL High 7-18 [facility] ([place]) Comment on above: Performed By: #### A 1C, BMP, ALB, ANSG, ADIFF, ABOG, CBC, ANEU, GFR #### [address] [address] CBCon 11-07-2022 Erythrocyte distribution width (RBC) [Ratio] 16.0 % High 11.5-14.5 [facility] ([place]) Comment on above: Order Comment: Pre-A dmission Testing Performed By: #### A 1C, BMP, ALB, ANSG, ADIFF, ABOG, CBC, ANEU, GFR #### [address] [address] Hematocrit (Bld) [Volume fraction] 38.9 % Normal 37.0-47.0 [facility] ([place]) Comment on above: Order Comment: Pre-A dmission Testing Performed By: #### A 1C, BMP, ALB, ANSG, ADIFF, ABOG, CBC, ANEU, GFR #### [address] [address] Hgb 12.7 G/dL Normal 12.0-16.0 [facility] ([place]) Comment on above: Order Comment: Pre-A dmission Testing Performed By: #### A 1C, BMP, ALB, ANSG, ADIFF, ABOG, CBC, ANEU, GFR #### [address] [address] MCH (RBC) [Entitic mass] 29.1 pg Normal 27.0-31.2 [facility] ([place]) Comment on above: Order Comment: Pre-A dmission Testing Performed By: #### A 1C, BMP, ALB, ANSG, ADIFF, ABOG, CBC, ANEU, GFR #### [address] [address] MCHC 32.7 G/dL Low 33.0-37.0 [facility] ([place]) Comment on above: Order Comment: Pre-A dmission Testing Performed By: #### A 1C, BMP, ALB, ANSG, ADIFF, ABOG, CBC, ANEU, GFR #### [address] [address] MCV (RBC) [Entitic vol] 89.1 fL Normal 80.0-94.0 [facility] ([place]) Comment on above: Order Comment: Pre-A dmission Testing Performed By: #### A 1C, BMP, ALB, ANSG, ADIFF, ABOG, CBC, ANEU, GFR #### [address] [address] Platelet 247 10 3/mcL Normal 130-400 [facility] ([place]) Comment on above: Order Comment: Pre-A dmission Testing Performed By: #### A 1C, BMP, ALB, ANSG, ADIFF, ABOG, CBC, ANEU, GFR #### [address] [address] Platelet mean volume (Bld) [Entitic vol] 8.2 fL Normal 7.4-10.4 [facility] ([place]) Comment on above: Order Comment: Pre-A dmission Testing Performed By: #### A 1C, BMP, ALB, ANSG, ADIFF, ABOG, CBC, ANEU, GFR #### [address] [address] RBC 4.36 10 6/mcL Normal 4.20-5.40 [facility] ([place]) Comment on above: Order Comment: Pre-A dmission Testing Performed By: #### A 1C, BMP, ALB, ANSG, ADIFF, ABOG, CBC, ANEU, GFR #### [address] [address] WBC 7.4 10 3/mcL Normal 4.6-10.8 [facility] ([place]) Comment on above: Order Comment: Pre-A dmission Testing Performed By: #### A 1C, BMP, ALB, ANSG, ADIFF, ABOG, CBC, ANEU, GFR #### [address] [address] [address] HIP W/O CONTRAST LEFTon 0 11-07-2022 [...] noted, indicating prior herniorrhaphy in this region. [id number] bilateral medial and lateral femorotibial compartment joint [...] 1:36:33 PM Ordering Provider: ARLYN LESLIE Normal [facility] ([place]) Gel ABOon 11-07-2022 ABO/Rh Interp Positive Invalid Interpretation Code [facility]) Comment on above: Performed By: #### A 1C, BMP, ALB, ANSG, ADIFF, ABOG, CBC, ANEU, GFR #### [address] [place], [place] [address] Gel ABSon 11-07-2022 Antibody Screen Gel Negative Normal [facility]) Comment on above: Performed By: #### A 1C, BMP, ALB, ANSG, ADIFF, ABOG, CBC, ANEU, GFR #### [place] [address] LABORATORYOrdered By: Caprice Perea on 11-07-2022 ABO/Rh [...] Lateralon IMPRESSION: No acute radiographic abnormality. Cardiomegaly Health Equipment Servicer: [email or web address] Transcribe Date/Time: Sep 30 2022 10:04A Dictated by : LUIS BALBUENA MD This examination was interpreted and the report reviewed and electronically signed by: LUIS BALBUENA MD on Sep 30 2022 10:06AM [facility] DIVISION OF RADIOLOGY * * *Final Report* [...] change and osteopenia DIVISION OF RADIOLOGY Provider, Margie Robert - 09/30/2022 * * *Final Report* * [...] IMPRESSION IMPRESSION: No acute radiographic abnormality. Cardiomegaly Health Equipment Servicer: [email or web address] Transcribe Date/Time: Sep 30 2022 10:04A Dictated by : LUIS BALBUENA MD This examination was interpreted and the report reviewed and electronically signed by: LUIS BALBUENA MD on Sep 30 2022 10:06AM EST [facility] XR Chest PA and LateralOrder ed By: Ccf Provider on 09-30-2022 [facility] Comprehensive metabolic 2000 panelon 09-28-2022 Albumin [Mass/Vol] 3.7 g/dL Low 3.9 - 4.9 g/dL [facility] ALP [Catalytic activity/Vol] 85 U/L 34 - 123 U/L [facility] ALT [Catalytic activity/Vol] 10 U/L 7 - 38 U/L [facility] Anion gap [Moles/Vol] 12 mmol/L 9 - 18 mmol/L [facility] AST [Catalytic activity/Vol] 14 U/L 13 - 35 U/L [facility] Bilirubin [Mass/Vol] 0.6 mg/dL 0.2 - 1 .3 mg/dL [facility] Calcium [Mass/Vol] 9.0 mg/dL 8.5 - 10. 2 mg/dL [facility] Chloride [Moles/Vol] 107 mmol/L High 97 - 10 5 mmol/L [facility] CO2 [Moles/Vol] 25 mmol/L 22 - 30 mmol/L [facility] Creatinine [Mass/Vol] 1.19 mg/dL High 0.58 - 0.96 mg/dL [facility] Estimated Glomerular Filtration Rate 50 mL/min/1.73m Low >=60 mL/min/1.73m [facility] Glucose [Mass/Vol] 115 mg/dL High 74 - 99 mg/dL [facility] Potassium [Moles/Vol] 4.2 mmol/L 3.7 - 5.1 mmol/L [facility] Protein [Mass/Vol] 6.8 g/dL 6.3 - 8.0 g/dL [facility] Sodium [Moles/Vol] 144 mmol/L 136 - 144 mmol/L [facility] Urea nitrogen [Mass/Vol] 20 mg/dL 7 - 21 mg/dL [facility] HbA1c (Bld)on 09-28-2022 Average glucose Estimated from glycated hemoglobin (Bld) [Mass/Vol] 140 mg/dL [facility] HbA1c (Bld) [Mass fraction] 6.5 % High 4.3 - 5.6 % [facility] LIPID PANEL, NONFASTINGon Cholesterol [Mass/Vol] 139 mg/dL <200 mg/dL [facility] HDL Cholesterol, Nonfasting 38 mg/dL Low >39 mg/dL [facility] LDL Cholesterol, Nonfasting 71 mg/dL <100 mg/dL [facility] LDL/HDL Ratio, Nonfasting 1.87 mg/dL <2.54 mg/dL [facility] Non HDL Cholesterol, Nonfasting 101 mg/dL <130 mg/dL [facility] Total Chol/HDL Ratio, Nonfasting 3.66 mg/dL <5.10 mg/dL [facility] Triglycerides, Nonfasting 152 mg/dL High <150 mg/dL [facility] VLDL Cholesterol, Nonfasting 30 mg/dL High <30 mg/dL [facility] TSH BLDon 09-28-2022 TSH Qn 3.040 m[IU]/L 0.270 - 4.200 mIU/L [facility] CBC W Auto Differential pane l (Bld)on 09-27-2022 Basophils (Bld) [#/Vol] 0.03 10*3/uL <0.11 k/uL [facility] Basophils/100 WBC (Bld) 0.4 % [facility] Differential cell count method Nom (Bld) Auto [facility] Eosinophils (Bld) [#/Vol] 0.23 10*3/uL <0.46 k/uL [facility] Eosinophils/100 WBC (Bld) 2.7 % [facility] Erythrocyte distribution width (RBC) [Ratio] 15.2 % High 11.5 - 15.0 % [facility] Hematocrit (Bld) [Volume fraction] 41.0 % 36.0 - 46.0 % [facility] Hemoglobin (Bld) [Mass/Vol] 12.5 g/dL 11.5 - 15.5 g/dL [facility] Immature granulocytes (Bld) [#/Vol] 0.03 10*3/uL <0.10 k/uL [facility] Immature granulocytes/100 WBC (Bld) 0.4 % [facility] Lymphocytes (Bld) [#/Vol] 1.23 10*3/uL 1.00 - 4.00 k/uL [facility] Lymphocytes/100 WBC (Bld) 14.6 % [facility] MCH (RBC) [Entitic mass] 28.9 pg 26.0 - 34.0 pg [facility] MCHC (RBC) [Mass/Vol] 30.5 g/dL 30.5 - 36.0 g/dL [facility] MCV (RBC) [Entitic vol] 94.9 fL 80.0 - 100.0 fL [facility] Monocytes (Bld) [#/Vol] 0.65 10*3/uL <0.87 k/uL [facility] Monocytes/100 WBC (Bld) 7.7 % [facility] Neutrophils (Bld) [#/Vol] 6.23 10*3/uL 1.45 - 7.50 k/uL [facility] Neutrophils/100 WBC (Bld) 74.2 % [facility] Nucleated RBC (Bld) [#/Vol] <0.01 k/uL [facility] Nucleated RBC/100 WBC (Bld) [Ratio] 0.0 /100 WBC [facility] Platelet mean volume (Bld) [Entitic vol] 10.2 fL 9.0 - 12.7 fL [facility] Platelets (Bld) [#/Vol] 195 10*3/uL 150 - 400 k/uL [facility] RBC (Bld) [#/Vol] 4.32 10*6/uL 3.90 - 5.2 0 m/uL [facility] WBC (Bld) [#/Vol] 8.40 10*3/uL 3.70 - 11. 00 k/uL [facility] XR CHEST 2V FRONTAL/LATon [facility] XR Chest PA and Lateralon Radiology Study observation (narrative) [facility] Absolute lymphocyte countOrd ered By: Dr. Gregg on 08-08-2022 Lymphocytes Auto (Unsp spec) [#/Vol] 0.81 10*3/uL 0.83-4.51 [facility] Basophil percentageOrdered B y: Dr. Gregg on 08-08-2022 Basophils/100 WBC (Bld) 0.2 % 0-[address] [facility] Eosinophils/100 WBC (Bld) 6.5 % 0-5 [facility] Neutrophils (Bld) [#/Vol] 4.0 10*3/uL 2.0-7.7 [facility] Neutrophils/100 WBC (Bld) 66.7 % 47-70 [facility] WBC (Bld) [#/Vol] 6.0 10*3/uL 4.4-11.0 [facility] Blood erythrocytes count (nu mber/volume)Ordered By: Dr. Gregg on 08-08-2022 RBC (Bld) [#/Vol] 2.81 10*6/uL 4.2-5.4 [facility] Blood hemoglobin measurement (mass/volume)Ordered By: Dr. Gregg on 08-08-2022 Hemoglobin (Bld) [Mass/Vol] 8.5 g/dL 12.0-15.0 [facility] Blood lymphocytes/100 leukoc ytesOrdered By: Dr. Gregg on 08-08-2022 Lymphocytes/100 WBC (Bld) 13.5 % 19-41 [facility] Blood monocytes/100 leukocyt esOrdered By: Dr. Gregg on 08-08-2022 Monocytes/100 WBC (Bld) 12.1 % 0-[address] [facility] Blood platelet mean volumeOr dered By: Dr. Gregg on 08-08-2022 Platelet mean volume (Bld) [Entitic vol] 10.7 fL 6.2-12.0 [facility] COVID-19 virus antigen assay Ordered By: Dr. Gregg on 08-08-2022 SARS-CoV-2 (COVID-19) Ag IA.rapid Ql (Resp) [facility] Determination of erythrocyte mean corpuscular volume (MCV)Ordered By: Dr. Gregg on 08-08-2022 MCV (RBC) [Entitic vol] 98.9 fL 81-[address] [facility] Glucose Glucometer (BldC) [M ass/Vol]Ordered By: Dr. Gregg on 08-08-2022 Glucose [Mass/Vol] 197 mg/dL 74-106 [facility] Comment on above: MANAGEMENT OF PATIEN T CARE PER NURSING PROTOCOL Hematocrit Auto (Bld) [Volum e fraction]Ordered By: Dr. Gregg on 08-08-2022 Hematocrit (Bld) [Volume fraction] 27.8 % 37-47 [facility] Laboratory - Hematology and Cell countsOrdered By: Dr. Gregg on 08-08-2022 Erythrocyte distribution width (RBC) [Entitic vol] 52.0 fL 35.1-43.9 [facility] Erythrocyte distribution width (RBC) [Ratio] 14.5 % 11.6-14.6 [facility] Immature granulocytes/100 WBC (Bld) 1.000 % 0.0-0.9 [facility] Comment on above: IG% - Immature Granu locytes (promyelocytes, myelocytes and metamyelocytes) > 1% indicates that a LEFT SHIFT is Present. MCH (RBC) [Entitic mass] 30.2 pg 27.0-32.0 [facility] Nucleated RBC/100 WBC (Bld) [Ratio] 0.5 % 0-5 [facility] MCHC Auto (RBC) [Mass/Vol]Or dered By: Dr. Gregg on 08-08-2022 MCHC (RBC) [Mass/Vol] 30.6 g/dL 32-36 [facility] Platelets bldOrdered By: Dr. Gregg on 08-08-2022 Platelets (Bld) [#/Vol] 168 10*3/uL 150-450 [facility] Basophil percentageOrdered B y: Dr. Gregg on 08-07-2022 Chloride [Moles/Vol] 110 mmol/L 98-107 [facility] Glucose [Mass/Vol] 104 mg/dL 74-106 [facility] Comment on above: Fasting Glucose resu lt from 100 to 125 mg/dL suggests IMPAIRED HOMEOSTASIS per A.D.A. criteria. Potassium [Moles/Vol] 4.1 mmol/L 3.5-5.1 [facility] Sodium [Moles/Vol] 141 mmol/L 136-145 [facility] Laboratory - Chemistry and C hemistry - challengeOrdered By: Dr. Gregg on 08-07-2022 CO2 [Moles/Vol] 29.0 mmol/L 21.0-32.0 [facility] Urea nitrogen/Creatinine [Mass ratio] 23.1 mg/mg 10-20 [facility] No Panel InformationOrdered By: Dr. Gregg on 08-07-2022 Estimated Creatinine Clearance Calc 39.98 ml/min [facility] Estimated GFR (MDRD) Amer 65 mL/min >60 [facility] Comment on above: GFR Calc Estimated GFR (MDRD) Non-Af Amer 54 mL/min >60 [facility] Comment on above: Non- GFR Calc Thyroid Stimulating Hormone (TSH) 1.27 uIU/mL 0.358-3.74 [facility] Serum or plasma calcium mariel urement (mass/volume)Ordered By: Dr. Gregg on 08-07-2022 Calcium [Mass/Vol] 8.7 mg/dL 8.5-10.1 [facility] Serum or plasma creatinine m easurement (mass/volume)Ordered By: Dr. Gregg on 08-07-2022 Creatinine [Mass/Vol] 1.08 mg/dL 0.55-1.02 [facility] Comment on above: The validity of the calculated GFR & GFRAA in patients over 70 years has not been determined. Clinical correlation is essential. Serum or plasma urea nitroge n measurement (mass/volume)Ordered By: Dr. Gregg on 08-07-2022 Urea nitrogen [Mass/Vol] 25 mg/dL 7-18 [facility] Thin prep Papanicolaou smear with manual screeningOrdered By: Dr. Gregg on 08-07-2022 Thin prep Papanicolaou smear with manual screening 2 5-15 [facility] Basophil percentageOrdered B y: Dr. Gregg on 08-06-2022 Basophil percentage 3.2 mg/dL 2.5-4.9 [facility] Laboratory - Chemistry and C hemistry - challengeOrdered By: Dr. Gregg on 08-06-2022 Magnesium [Mass/Vol] 2.4 mg/dL 1.6-2.6 [facility] Whole blood hemoglobin A1c/t otal hemoglobin ratio (mass fraction)Ordered By: Dr. Stuart on 08-05-2022 HbA1c (Bld) [Mass fraction] 7.3 % 3.8-5.6 [facility] Comment on above: Normal < 5.7 % Predi abetic 5.7 - 6.4 % Diabetic >or= 6.5 % Please note range changes. Absolute lymphocyte counton 08-03-2022 Lymphocytes Auto (Unsp spec) [#/Vol] 1.15 10*3/uL 0.83-4.51 [facility] Work Phone: Basophil percentageOrdered B y: Dr. Cohn on 08-03-2022 Bilirubin [Mass/Vol] 1.40 mg/dL 0.20-1.00 [facility] Comment on above: For patients on eltr ombopag therapy, use of Dimension [place] TBIL is not recommended. Protein [Mass/Vol] 7.7 g/dL 6.4-8.2 [facility] Basophil percentageon 2021 Basophils/100 WBC (Bld) 0.4 % 0-[address] [facility] Work Phone: Chloride [Moles/Vol] 106 mmol/L 98-107 [facility] Work Phone: Eosinophils/100 WBC (Bld) 2.3 % 0-5 [facility] Work Phone: Glucose [Mass/Vol] 135 mg/dL 74-106 [facility] Work Phone: Comment on above: Fasting Glucose resu lt greater than or equal to 126 mg/dL suggests DIABETES MELLITUS per A.D.A. criteria. Neutrophils (Bld) [#/Vol] 7.4 10*3/uL 2.0-7.7 [facility] Work Phone: Neutrophils/100 WBC (Bld) 77.1 % 47-70 [facility] Work Phone: [phone] Potassium [Moles/Vol] 4.5 mmol/L 3.5-5.1 [facility] Work Phone: Comment on above: Moderate Hemolysis, Result may be falsely increased. Sodium [Moles/Vol] 141 mmol/L 136-145 [facility] Work Phone: WBC (Bld) [#/Vol] 9.6 10*3/uL 4.4-11.0 [facility] Work Phone: [phone] Blood erythrocytes count (nu mber/volume)on 08-03-2022 RBC (Bld) [#/Vol] 4.28 10*6/uL 4.2-5.4 [facility] Work Phone: Blood hemoglobin measurement (mass/volume)on 08-03-2022 Hemoglobin (Bld) [Mass/Vol] 12.9 g/dL 12.0-15.0 [facility] Work Phone: Blood lymphocytes/100 leukoc yteson 08-03-2022 Lymphocytes/100 WBC (Bld) 11.9 % 19-41 [facility] Work Phone: [phone] Blood monocytes/100 leukocyt eson 08-03-2022 Monocytes/100 WBC (Bld) 7.6 % 0-[address] [facility] Work Phone: Blood platelet mean volumeon 08-03-2022 Platelet mean volume (Bld) [Entitic vol] 10.2 fL 6.2-12.0 [facility] Work Phone: Determination of erythrocyte mean corpuscular volume (MCV)on 08-03-2022 MCV (RBC) [Entitic vol] 94.9 fL 81-[address] [facility] Work Phone: Hematocrit Auto (Bld) [Volum e fraction]on 08-03-2022 Hematocrit (Bld) [Volume fraction] 40.6 % 37-47 [facility] Work Phone: Laboratory - Chemistry and C hemistry - challengeOrdered By: Dr. Cohn on 08-03-2022 ALP [Catalytic activity/Vol] 77 U/L 45-117 [facility] ALT [Catalytic activity/Vol] 12 U/L 13-56 [facility] Globulin (S) [Mass/Vol] 4.4 g/dL 2.2-4.[address] [facility] Laboratory - Chemistry and C hemistry - challengeon 08-03-2022 CO2 [Moles/Vol] 30.0 mmol/L 21.0-32.0 [facility] Work Phone: Urea nitrogen/Creatinine [Mass ratio] 13.8 mg/mg 10-20 [facility] Work Phone: Laboratory - Hematology and Cell countson 08-03-2022 Erythrocyte distribution width (RBC) [Entitic vol] 49.4 fL 35.1-43.9 [facility] Work Phone: Erythrocyte distribution width (RBC) [Ratio] 14.4 % 11.6-14.6 [facility] Work Phone: Immature granulocytes/100 WBC (Bld) 0.700 % 0.0-0.9 [facility] Work Phone: Comment on above: IG% - Immature Granu locytes (promyelocytes, myelocytes and metamyelocytes) > 1% indicates that a LEFT SHIFT is Present. MCH (RBC) [Entitic mass] 30.1 pg 27.0-32.0 [facility] Work Phone: Nucleated RBC/100 WBC (Bld) [Ratio] 0 % 0-5 [facility] Work Phone: MCHC Auto (RBC) [Mass/Vol]on 08-03-2022 MCHC (RBC) [Mass/Vol] 31.8 g/dL 32-36 [facility] Work Phone: No Panel InformationOrdered By: Dr. Cohn on 08-03-2022 Troponin I High Sensitivity 13 pg/mL 3.0-54.0 [facility] Comment on above: Please Note: New [place] t Units and Gender Specific Reference Ranges. For more information see Policy Stat Procedure [place] High Sensitivity Troponin (TNIH) and attachments. Vitamin D 25-Hydroxy 57.2 ng/mL [facility] Comment on above: Vitamin D 25(OH) Sta tus Range Deficiency <20 ng/mL (50nmol/L) Insufficiency 20 - 30 ng/mL (50 - 75 nmol/L) Sufficiency 30 - 100 ng/mL (75 - 250 nmol/L) Toxicity >100 ng/mL (>250 nmol/L) No Panel Informationon 08-03 Estimated Creatinine Clearance Calc 33.21 ml/min [facility] Work Phone: Estimated GFR (MDRD) Amer 53 mL/min >60 [facility] Work Phone: Comment on above: GFR Calc Estimated GFR (MDRD) Non-Af Amer 43 mL/min >60 [facility] Work Phone: Comment on above: Non- GFR Calc Platelets bldon 08-03-2022 Platelets (Bld) [#/Vol] 202 10*3/uL 150-450 [facility] Work Phone: Serum or plasma albumin mariel urement (mass/volume)Ordered By: Dr. Cohn on 08-03-2022 Albumin [Mass/Vol] 3.3 g/dL 3.2-5.0 [facility] Serum or plasma albumin/glob ulin mass ratioOrdered By: Dr. Cohn on 08-03-2022 Albumin/Globulin [Mass ratio] 0.8 {ratio} 0.9-2.4 [facility] Serum or plasma calcium mariel urement (mass/volume)on 08-03-2022 Calcium [Mass/Vol] 9.6 mg/dL 8.5-10.1 [facility] Work Phone: Serum or plasma creatinine m easurement (mass/volume)on 08-03-2022 Creatinine [Mass/Vol] 1.30 mg/dL 0.55-1.02 [facility] Work Phone: Comment on above: The validity of the calculated GFR & GFRAA in patients over 70 years has not been determined. Clinical correlation is essential. Serum or plasma urea nitroge n measurement (mass/volume)on 08-03-2022 Urea nitrogen [Mass/Vol] 18 mg/dL 7-18 [facility] Work Phone: Thin prep Papanicolaou smear with manual screeningOrdered By: Dr. Cohn on 08-03-2022 Thin prep Papanicolaou smear with manual screening 14 U/L 15-37 [facility] Thin prep Papanicolaou smear with manual screeningon 08-03-2022 Thin prep Papanicolaou smear with manual screening 5 5-15 [facility] Work Phone: URINE CULTUREon 07-14-2022 Bacteria identified Cx Nom (U) >=100,000 CFU/ml Escherichia coli Abnormal [facility] Bacteria identified Cx Nom (U) >=100,000 CFU/ml Aerococcus urinae Abnormal [facility] UA DIP, URINE (POC)on 2021 BILIRUBIN UA (POCT) Negative Negative [facility] CLARITY UA (POCT) Cloudy [facility] COLOR UA (POCT) Yellow [facility] GLUCOSE UA (POCT) Negative Negative mg/dL [facility] HEMOGLOBIN/BLOOD UA (POCT) Negative Negative [facility] KETONE UA (POCT) Negative Negative mg/dL [facility] LEUKOCYTES UA (POCT) Moderate Abnormal Negative [facility] NITRITE UA (POCT) Negative Negative [facility] PH UA (POCT) 6.0 4.5 - 8.0 [facility] Protein Ql (U) Negative Negative mg/dL [facility] SPECIFIC GRAVITY UA (POCT) 1.015 1.005 - 1.030 [facility] UROBILINOGEN UA (POCT) 1.0 E.U./dL [place] l E.U./dL [facility] URINE CULTUREon 07-11-2022 Bacteria identified Cx Nom (U) Invalid Interpretation Code [facility] Absolute lymphocyte counton 06-12-2022 Lymphocytes Auto (Unsp spec) [#/Vol] 0.87 10*3/uL 0.83-4.51 [facility] Work Phone: Basophil percentageon 2021 Basophils/100 WBC (Bld) 0.3 % 0-[address] [facility] Work Phone: Chloride [Moles/Vol] 109 mmol/L 98-107 [facility] Work [facility]: Eosinophils/100 WBC (Bld) 4.7 % 0-5 [facility] Work Phone: Glucose [Mass/Vol] 62 mg/dL 74-106 [facility] Work Phone: Neutrophils (Bld) [#/Vol] 4.2 10*3/uL 2.0-7.7 [facility] Work Phone: Neutrophils/100 WBC (Bld) 68.3 % 47-70 [facility] Work Phone: Potassium [Moles/Vol] 3.8 mmol/L 3.5-5.1 [facility] Work Phone: Sodium [Moles/Vol] 142 mmol/L 136-145 [facility] Work Phone: [phone] WBC (Bld) [#/Vol] 6.1 10*3/uL 4.4-11.0 [facility] Work Phone: [phone] Blood erythrocytes count (nu mber/volume)on 06-12-2022 RBC (Bld) [#/Vol] 4.08 10*6/uL 4.2-5.4 [facility] Work Phone: [phone] Blood hemoglobin measurement (mass/volume)on 06-12-2022 Hemoglobin (Bld) [Mass/Vol] 12.2 g/dL 12.0-15.0 [facility] Work Phone: Blood lymphocytes/100 leukoc yteson 06-12-2022 Lymphocytes/100 WBC (Bld) 14.2 % 19-41 [facility] Work Phone: Blood monocytes/100 leukocyt eson 06-12-2022 Monocytes/100 WBC (Bld) 12.2 % 0-[address] [facility] Work Phone: Blood platelet mean volumeon 06-12-2022 Platelet mean volume (Bld) [Entitic vol] 10.2 fL 6.2-12.0 [facility] Work Phone: Determination of erythrocyte mean corpuscular volume (MCV)on 06-12-2022 MCV (RBC) [Entitic vol] 96.1 fL 81-[address] [facility] Work Phone: Hematocrit Auto (Bld) [Volum e fraction]on 06-12-2022 Hematocrit (Bld) [Volume fraction] 39.2 % 37-47 [facility] Work Phone: Laboratory - Chemistry and C hemistry - challengeon 06-12-2022 CO2 [Moles/Vol] 31.0 mmol/L 21.0-32.0 [facility] Work Phone: Urea nitrogen/Creatinine [Mass ratio] 15.0 mg/mg 10-20 [facility] Work Phone: Laboratory - Hematology and Cell countson 06-12-2022 Erythrocyte distribution width (RBC) [Entitic vol] 54.3 fL 35.1-43.9 [facility] Work Phone: Erythrocyte distribution width (RBC) [Ratio] 15.2 % 11.6-14.6 [facility] Work Phone: Immature granulocytes/100 WBC (Bld) 0.300 % 0.0-0.9 [facility] Work Phone: Comment on above: IG% - Immature Granu locytes (promyelocytes, myelocytes and metamyelocytes) > 1% indicates that a LEFT SHIFT is Present. MCH (RBC) [Entitic mass] 29.9 pg 27.0-32.0 [facility] Work Phone: Nucleated RBC/100 WBC (Bld) [Ratio] 0 % 0-5 [facility] Work Phone: MCHC Auto (RBC) [Mass/Vol]on 06-12-2022 MCHC (RBC) [Mass/Vol] 31.1 g/dL 32-36 [facility] Work Phone: No Panel Informationon 06-12 Estimated GFR (MDRD) Amer 62 mL/min >60 [facility] Work Phone: Comment on above: GFR Calc Estimated GFR (MDRD) Non-Af Amer 51 mL/min >60 [facility] Work Phone: Comment on above: Non- GFR Calc Platelets bldon 06-12-2022 Platelets (Bld) [#/Vol] 194 10*3/uL 150-450 [facility] Work Phone: Serum or plasma calcium mariel urement (mass/volume)on 06-12-2022 Calcium [Mass/Vol] 9.1 mg/dL 8.5-10.1 [facility] Work Phone: Serum or plasma creatinine m easurement (mass/volume)on 06-12-2022 Creatinine [Mass/Vol] 1.13 mg/dL 0.55-1.02 [facility] Work Phone: Comment on above: The validity of the calculated GFR & GFRAA in patients over 70 years has not been determined. Clinical correlation is essential. Serum or plasma urea nitroge n measurement (mass/volume)on 06-12-2022 Urea nitrogen [Mass/Vol] 17 mg/dL 7-18 [facility] Work Phone: Thin prep Papanicolaou smear with manual screeningon 06-12-2022 Thin prep Papanicolaou smear with manual screening 2 5-15 [facility] Work Phone: PVR ANK/RAMIREZ/TOE NIRU VAS LAB on 06-07-2022 [facility] UA DIP, URINE (POC)on 2021 BILIRUBIN UA (POCT) Negative Negative [facility] CLARITY UA (POCT) Clear [facility] COLOR UA (POCT) Yellow [facility] GLUCOSE UA (POCT) Negative Negative mg/dL [facility] HEMOGLOBIN/BLOOD UA (POCT) Negative Negative [facility] KETONE UA (POCT) Negative Negative mg/dL [facility] LEUKOCYTES UA (POCT) Trace Abnormal Negative [facility] NITRITE UA (POCT) Negative Negative [facility] PH UA (POCT) 6.0 4.5 - 8.0 [facility] Protein Ql (U) Negative Negative mg/dL [facility] SPECIFIC GRAVITY UA (POCT) 1.015 1.005 - 1.030 [facility] UROBILINOGEN UA (POCT) 1.0 E.U./dL Trinidad l E.U./dL [facility] XR Chest PA and Lateralon IMPRESSION: Questionable scattered small hazy opacities in the bilateral lungs. Cardiomegaly and pulmonary hypertension. Health Equipment Servicer: PSCB Transcribe Date/Time: Apr 05 2022 11:05A [...] spine shows exaggerated kyphosis and degenerative changes. MICHAEL_DO_NOT_ USE_DIVISIO N OF RADIOLOGY Provider, [facility] - 04/05/2022 * * *Final Report* * [...] the bilateral lungs. Cardiomegaly and pulmonary hypertension. Health Equipment Servicer: PSCAkira Transcribe Date/Time: Apr 05 2022 11:05A Dictated by : LEAH GORDON MD This examination was interpreted and the report reviewed and electronically signed by: LEAH GORDON MD on Apr 05 2022 11:15AM EST [facility] XR Chest PA and LateralOrder ed By: Ccf Provider on 04-05-2022 [facility] XR Chest PA and Lateralon Radiology Study observation (narrative) [facility] TOX SCREEN ROUT URon 022 Amphetamines Confirm (U) [Mass/Vol] Negative Negative [facility] Barbiturates Urine Negative Negative [facility] Benzodiazepines Urine Negative Negative [facility] Cannabinoids, Urine Negative Negative [facility] Cocaine Ql (U) Negative Negative [facility] Ethanol (U) [Mass/Vol] <11 <11 mg/dL Cl [facility] Opiates Screen Ql (U) Negative Negative [facility] oxyCODONE cutoff Screen (U) [Mass/Vol] Negative Negative [facility] Phencyclidine Ql (U) Negative Negative [facility] UA DIP, URINE (POC)on 2021 BILIRUBIN UA (POCT) Negative Negative [facility] CLARITY UA (POCT) Slightly Cloudy Cl [facility] COLOR UA (POCT) Yellow [facility] GLUCOSE UA (POCT) Negative Negative mg/dL [facility] HEMOGLOBIN/BLOOD UA (POCT) Negative Negative [facility] KETONE UA (POCT) Negative Negative mg/dL [facility] LEUKOCYTES UA (POCT) Negative Negative [facility] NITRITE UA (POCT) Negative Negative [facility] PH UA (POCT) 7.0 4.5 - 8.0 [facility] Protein Ql (U) Negative Negative mg/dL [facility] SPECIFIC GRAVITY UA (POCT) 1.015 1.005 - 1.030 [facility] UROBILINOGEN UA (POCT) 1.0 E.U./dL Trinidad l E.U./dL [facility] ALBUMIN/CREAT RATIO RND URon 03-02-2022 Albumin DL <= 20 mg/L (U) [Mass/Vol] 34.9 mg/L [facility] Albumin/Creatinine (U) [Mass ratio] 35 mg/g High <30 mg/g [facility] Creatinine (U) [Mass/Vol] 99.1 mg/dL 20.0 - 300.0 mg/dL [facility] CBC panel Auto (Bld)on 03-02 Erythrocyte distribution width (RBC) [Ratio] 14.3 % 11.5 - 15.0 % [facility] Hematocrit (Bld) [Volume fraction] 29.2 % Low 36.0 - 46.0 % [facility] Hemoglobin (Bld) [Mass/Vol] 8.8 g/dL Low 11.5 - 15.5 g/dL [facility] MCH (RBC) [Entitic mass] 28.8 pg 26.0 - 34.0 pg [facility] MCHC (RBC) [Mass/Vol] 30.1 g/dL Low 30.5 - 36.0 g/dL [facility] MCV (RBC) [Entitic vol] 95.4 fL 80.0 - 100.0 fL [facility] Nucleated RBC (Bld) [#/Vol] 0.05 10*3/uL High <0.01 k/uL [facility] Platelet mean volume (Bld) [Entitic vol] 11.1 fL 9.0 - 12.7 fL [facility] Platelets (Bld) [#/Vol] 232 10*3/uL 150 - 400 k/uL [facility] RBC (Bld) [#/Vol] 3.06 10*6/uL Low 3.90 - 5.2 0 m/uL [facility] WBC (Bld) [#/Vol] 7.56 10*3/uL 3.70 - 11. 00 k/uL [facility] Comprehensive metabolic 2000 panelon 03-02-2022 Albumin [Mass/Vol] 3.6 g/dL Low 3.9 - 4.9 g/dL [facility] ALP [Catalytic activity/Vol] 69 U/L 34 - 123 U/L [facility] ALT [Catalytic activity/Vol] 7 U/L 7 - 38 U/L [facility] Anion gap [Moles/Vol] 12 mmol/L 9 - 18 mmol/L [facility] AST [Catalytic activity/Vol] 8 U/L Low 13 - 35 U/L [facility] Bilirubin [Mass/Vol] 0.6 mg/dL 0.2 - 1 .3 mg/dL [facility] Calcium [Mass/Vol] 9.2 mg/dL 8.5 - 10. 2 mg/dL [facility] Chloride [Moles/Vol] 102 mmol/L 97 - 10 5 mmol/L [facility] CO2 [Moles/Vol] 24 mmol/L 22 - 30 mmol/L [facility] Creatinine [Mass/Vol] 1.15 mg/dL High 0.58 - 0.96 mg/dL [facility] Estimated Glomerular Filtration Rate 52 mL/min/1.73m Low >=60 mL/min/1.73m [facility] Glucose [Mass/Vol] 310 mg/dL High 74 - 99 mg/dL [facility] Potassium [Moles/Vol] 4.6 mmol/L 3.7 - 5.1 mmol/L [facility] Protein [Mass/Vol] 7.2 g/dL 6.3 - 8.0 g/dL [facility] Sodium [Moles/Vol] 138 mmol/L 136 - 144 mmol/L [facility] Urea nitrogen [Mass/Vol] 20 mg/dL 7 - 21 mg/dL [facility] HbA1c (Bld)on 03-02-2022 Average glucose Estimated from glycated hemoglobin (Bld) [Mass/Vol] 183 mg/dL [facility] HbA1c (Bld) [Mass fraction] 8.0 % High 4.3 - 5.6 % [facility] LIPID PANEL, NONFASTINGon Cholesterol [Mass/Vol] 131 mg/dL <200 mg/dL [facility] HDL Cholesterol, Nonfasting 36 mg/dL Low >39 mg/dL [facility] LDL Cholesterol, Nonfasting 58 mg/dL <100 mg/dL [facility] LDL/HDL Ratio, Nonfasting 1.61 mg/dL <2.54 mg/dL [facility] Non HDL Cholesterol, Nonfasting 95 mg/dL <130 mg/dL [facility] Total Chol/HDL Ratio, Nonfasting 3.64 mg/dL <5.10 mg/dL [facility] Triglycerides, Nonfasting 185 mg/dL High <150 mg/dL [facility] VLDL Cholesterol, Nonfasting 37 mg/dL High <30 mg/dL [facility] Absolute lymphocyte counton 02-23-2022 Lymphocytes Auto (Unsp spec) [#/Vol] 1.10 10*3/uL 0.83-4.51 [facility] Work Phone: Basophil percentageon 2021 Basophils/100 WBC (Bld) 0.3 % 0-[address] [facility] Work Phone: Chloride [Moles/Vol] 106 mmol/L 98-107 [facility] Work Phone: Eosinophils/100 WBC (Bld) 3.3 % 0-5 [facility] Work Phone: Glucose [Mass/Vol] 281 mg/dL 74-106 [facility] Work Phone: Comment on above: Glucose result great er than or equal to 200 mg/dLsuggests DIABETES MELLITUS per A.D.A. criteria. Neutrophils (Bld) [#/Vol] 9.8 10*3/uL 2.0-7.7 [facility] Work Phone: [phone] Neutrophils/100 WBC (Bld) 79.4 % 47-70 [facility] Work Phone: [phone] Potassium [Moles/Vol] 3.3 mmol/L 3.5-5.1 [facility] Work Phone: Sodium [Moles/Vol] 141 mmol/L 136-145 [facility] Work Phone: WBC (Bld) [#/Vol] 12.4 10*3/uL 4.4-11.0 [facility] Work Phone: Blood erythrocytes count (nu mber/volume)on 02-23-2022 RBC (Bld) [#/Vol] 3.75 10*6/uL 4.2-5.4 [facility] Work Phone: Blood hemoglobin measurement (mass/volume)on 02-23-2022 Hemoglobin (Bld) [Mass/Vol] 11.2 g/dL 12.0-15.0 [facility] Work Phone: Blood lymphocytes/100 leukoc yteson 02-23-2022 Lymphocytes/100 WBC (Bld) 8.9 % 19-41 [facility] Work Phone: Blood monocytes/100 leukocyt eson 02-23-2022 Monocytes/100 WBC (Bld) 7.7 % 0-[address] [facility] Work Phone: Blood platelet mean volumeon 02-23-2022 Platelet mean volume (Bld) [Entitic vol] 10.0 fL 6.2-12.0 [facility] Work Phone: Determination of erythrocyte mean corpuscular volume (MCV)on 02-23-2022 MCV (RBC) [Entitic vol] 94.4 fL 81-[address] [facility] Work Phone: Guy 02-23-2022 EMERGENCY PHYSICIAN REPORT This is a preliminary report only, as the practitioner review and authentication has not occurred. [facility] ER PHYSICIAN ASSESSMENT RECORDS : FlexChartData Event Time: 02/23/2022 16:20 Status: Signed [facility] Tamia Panda [[id number] ] Attending Physician 67 / F / 1955 Chart (V2b) Chart created at 02/23/2022 16:17 by Thai Moran Chart closed at 02/23/2022 17:34 Entry in Emergency Department at 02/23/2022 14:14 Patient Name: Tamia Panda Record Number: [id number] Date: 02/23/2022 16:17 Entered Department at: 02/23/2022 14:14 Patient Seen at: 02/23/2022 15:44 Historian: Patient PCP: NANDA OLIVEIRA Chief Complaint:Patient coming in for a nosebleed. Patient had it packed 3 times at [facility] 3 times. Patient was sent home and bleeding continued. Triage Note reviewed and Initial Vital Signs reviewed. Temperature: 97.9 F (36.6 C). Pulse: 76. Respiratory Rate: 18. Blood-pressure: 147/89. Oxygen Saturation: 97%. History of Present Illness: Patient presents with nasal bleeding from her right nares. It started last night. She is on Eliquis. She went to [place] [facility]. They evidently traded out 3 nasal packings that she continue to have some bleeding. She now just has a small amount that she keeps having to dab but no active bleeding does not feel anything going down the back of her throat. Denies [facility] PATIENT NAME: TAMIA PANDA [address] [facility] [address] [place] MEDICAL REC #: [id number] [place] [address] EMERGENCY DEPARTMENT REPORT EMERGENCY DEPARTMENT PHYSICIAN lightheadedness. [...] at this point she is stable for [facility] PATIENT NAME: TAMIA PANDA [address] [facility] [place] MEDICAL REC #: [id number] [place] [address] EMERGENCY DEPARTMENT REPORT EMERGENCY DEPARTMENT PHYSICIAN discharge. [...] follow-up. Please follow all your discharge instructions. [facility] (more content not included)... Normal [facility] Tamiment Hematocrit Auto (Bld) [Volum e fraction]on 02-23-2022 Hematocrit (Bld) [Volume fraction] 35.4 % 37-47 [facility] Work Phone: Laboratory - Chemistry and C hemistry - challengeon 02-23-2022 CO2 [Moles/Vol] 29.0 mmol/L 21.0-32.0 [facility] Work Phone: Urea nitrogen/Creatinine [Mass ratio] 14.4 mg/mg 10-20 [facility] Work Phone: Laboratory - Hematology and Cell countson 02-23-2022 Erythrocyte distribution width (RBC) [Entitic vol] 47.4 fL 35.1-43.9 [facility] Work Phone: Erythrocyte distribution width (RBC) [Ratio] 13.9 % 11.6-14.6 [facility] Work Phone: Immature granulocytes/100 WBC (Bld) 0.400 % 0.0-0.9 [facility] Work Phone: Comment on above: IG% - Immature Granu locytes (promyelocytes, myelocytes and metamyelocytes) > 1% indicates that a LEFT SHIFT is Present. MCH (RBC) [Entitic mass] 29.9 pg 27.0-32.0 [facility] Work Phone: Nucleated RBC/100 WBC (Bld) [Ratio] 0 % 0-5 [facility] Work Phone: MCHC Auto (RBC) [Mass/Vol]on 02-23-2022 MCHC (RBC) [Mass/Vol] 31.6 g/dL 32-36 [facility] Work Phone: No Panel Informationon 02-23 Estimated Creatinine Clearance Calc 31.06 ml/min [facility] Work Phone: Estimated GFR (MDRD) Amer 49 mL/min >60 [facility] Work Phone: Comment on above: GFR Calc Estimated GFR (MDRD) Non-Af Amer 40 mL/min >60 [facility] Work Phone: Comment on above: Non- GFR Calc Platelets bldon 02-23-2022 Platelets (Bld) [#/Vol] 219 10*3/uL 150-450 [facility] Work Phone: Serum or plasma calcium mariel urement (mass/volume)on 02-23-2022 Calcium [Mass/Vol] 8.7 mg/dL 8.5-10.1 [facility] Work Phone: Serum or plasma creatinine m easurement (mass/volume)on 02-23-2022 Creatinine [Mass/Vol] 1.39 mg/dL 0.55-1.02 [facility] Work Phone: Comment on above: The validity of the calculated GFR & GFRAA in patients over 70 years has not been determined. Clinical correlation is essential. Serum or plasma urea nitroge n measurement (mass/volume)on 02-23-2022 Urea nitrogen [Mass/Vol] 20 mg/dL 7-18 [facility] Work Phone: Thin prep Papanicolaou smear with manual screeningon 02-23-2022 Thin prep Papanicolaou smear with manual screening 6 5-15 [facility] Work Phone: CNOVon 12-18-2017 CNOV Office Visit (AGCARDWST) TAMIA PANDA ([id number]) 1955 FDate Time Provider Department12/18/17 3:00 PM DONAL ALBRIGHTWSCallie [...] - metBeta sudhakar for ASHD with prior CO or prior LVEFANDlt;40 (NQF 0070) - N/ABeta [...] elective surgery. Forrest arrange diagnostic angiography at [facility]. Hopefully she willhave disease which will allow [...] tocheck blood sugar 4-5 times daily DX: E11 Insulin: yes DM: yeslancets (ONE TOUCH DELICA) 33 gauge misc Use as directed to check blood sugar4-5 times daily DX: E11 Insulin: yes DM: yesIncontinence Pad, Liner, Disp [...] Pulses arediminished but symmetrical.Stress test done at [facility] in 01/05 reportedly showed normal wallmotion at rest, but evidence of a ANDquot;moderate to large inferolateralscarANDquot ; with minimal anterior ischemia. 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 She did not undergo angiographyfollowing her abnormal stress test in 2016.Electronically Signed:[facility] 2017 3:30 [facility] Nanda Oliveira, MDReferring Provider: DONAL ALBRIGHT [[id number]]Allergies As of Date: 12/18/2017 Noted Allergy ReactionADHESIVE [...] Visit Diagnosis:Abnormal stress test [R94.39]Order(s):LEFT HEART CATH,PERCUTANEOUS [[id number]] Order #: [id number]: 1Prescriptions as of 12/18/2017 Sig: SUCRALFATE 100 [...] Essential hypertension [I10] Coronary artery disease of [place] artery of stoney* AF (paroxysmal atrial fibrillation) ([facility]) [I48.* COPD (chronic obstructive pulmonary disease) (H* GERD without esophagitis [K21.9] Dysphagia [R13.10] Constipation [K59.00] DM type 2 (diabetes mellitus, type 2) (HCC) [E1* 02/14/2017 Shortness of breath [R06.02] 02/14/2017 Arthritis [M19.90] More... CHF (congestive heart failure) ([facility]) [I50.9] BPPV (benign paroxysmal positional vertigo) [H8*INVALID FOR* RLS (restless legs syndrome) [G25.81] INVALID FOR* Iron deficiency concern: RE RLS [E61.1] INVALID FOR* Tubular adenoma [D36.9] INVALID FOR* Incontinence [R32] More... Gastroparesis [K31.84] INVALID FOR* Pre-op testing [Z01.818] INVALID FOR* More...Level of Service: SPORTS PE 35.00 () [[id number]]Follow-up and Disposition History RecordedEncounter Number: [id number] Status:Closed by DONAL ALBRIGHT MD on 12/18/17 [facility] Wong 12-18-2017 [facility] Telephone (AGCARDWST) TAMIA PANDA ([id number]) 1955 FDate Time Provider Department12/18/17 DONAL ALBRIGHT During your visit today, we recorded the following information about you:Dami Bravo, RN, RN 12/18/2017 4:52 PM SignedSpoke to Uma at [place] [facility]. Patient will be set up for heart [facility] next week.Demographics, OV notes, ECG, CXR, labs, and insurance cards faxed.Notified surgeon's office that cardiac clearance was not granted.Dami Bravo, RN, RN 12/19/2017 10:20 AM SignedLeft msg [facility], op note, DCsummary from stent placement in 2003.Faxed request for same records to Nancy COREY @ [phone].[facility] states that they will not proceed with cath without theserecords.Dami Bravo RN, RN 12/22/2017 10:22 AM SignedReceived [facility]. Cath report portion forwarded [facility] for [facility]. 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 CHF (congestive heart failure) ([facility]) [I50.9] BPPV (benign paroxysmal positional vertigo) [H8*INVALID FOR* RLS (restless legs syndrome) [G25.81] INVALID FOR* Iron deficiency concern: RE RLS [E61.1] INVALID FOR* Tubular adenoma [D36.9] INVALID FOR* Incontinence [R32] More... Gastroparesis [K31.84] INVALID FOR* Pre-op testing [Z01.818] INVALID FOR* More... Status:Closed by DAMI BRAVO on 12/18/17 [facility] PROGRESSon 12-18-2017 PROGRESS HNO ID: [id number]: Donal Callahan: (none)Author Type: PhysicianType: Progress NotesFiled: 12/18/2017 3:51 PMNote Text:PERTINENT CARDIAC HISTORYASHD - PCI 2004Atrial fib - chronicHTNHLDMOSA - CPAPPE/DVT 1988 - a/c 6 mosCRFCHF - diastolicADHERENCE TO GUIDELINESACE-I or ARB for HF with prior LVEF<40 (NQF 0081) - N/AASA or Plavix for ASHD (NQF 0067) - metBeta sudhakar for ASHD with prior CO or prior LVEF<40 (NQF 0070) - N/ABeta sudhakar for HF with prior LVEF<40 (NQF 0083) - N/AACE-I or ARB for ASHD with DM or prior LVEF<40 (NQF 0066) - low BPStatin therapy for ASHD or FHL or DM - metBMI documented and plan if >25 (NQ 0421) - lifestyle recommendation formTobacco use screening and referral (NQ 0028) - lifestyle recommendationformRecomm endation for whole [...] electivesurgery. We will arrange diagnostic angiography at [facility].Hopefully she will have disease which will allow [...] ULTRA TEST) test strip Use as directed [facility] blood sugar 4-5 times daily DX: [...] FOR HOME USE. DX:LABILE BLOOD PRESSUREBlood-Glucose Meter (BrightRollTOUCH ULTRA2) monitoring kit UAD to test bloodsugarAlcohol [...] are diminished but symmetrical.Stress test done at [facility] in 01/05 reportedly showed normal wallmotion at rest, but evidence of a moderate to large inferolateral scarwith minimal anterior ischemia. This was a pharmacologic test, as wastojam's study, which showed evidence of a small basilar lateral fixeddefect with moderate lateral ischemia. She did not undergo angiographyfollowing her abnormal stress test in 2015.Electronically Signed:[facility] 2017 3:30 [facility]: [facility] (AGCARDWST) TAMIA PANDA ([id number]) 1955 FDate Time Provider Department12/16/17 10:30 AM [...] - metBeta sudhakar for ASHD with prior CO or prior LVEFANDlt;40 (NQF 0070) - N/ABeta [...] woman who is seen in consultation at [facility] Dr[facility] Wilson, in [facility]. She will beundergoing pyloroplasty for gastroparesis. She [...] has not been getting exerciseoutside the house.ALLERGIES:ALLERGIE Ellie Reactions- Adhesive Tape (Adrienne* Intolerance Surgical tape [...] chronic obstructive pulmonary disease with respiratory failure ([facility])- AF (paroxysmal atrial fibrillation) ([facility])- Anxiety- Arthritis Seeing Dr Elliott- Cervical cancer ([facility]) hysterectomy- CHF (congestive heart failure) ([facility])- Chronic back pain Seeing Dr. Wallace- Constipation- COPD (chronic obstructive pulmonary disease) ([facility])- Coronary atherosclerosis of [place] coronary artery Previously seeing Dr. Sosa- DDD (degenerative disc disease), lumbar- DM type 2 (diabetes mellitus, type 2) ([facility]) Seeing Dr. Foley for podiatry- DVT (deep venous thrombosis) ([facility]) Post op INA, BSO.- Dysphagia Seeing Dr. Beaulieu- Emphysema lung ([facility])- Essential hypertension- Functional dyspepsia- Gastroparesis 2016 mild- GERD without esophagitis- Headache- History of colon polyps 11/28/2016- Hyperlipidemia- Hypothyroidism- Incontinence Seeing Dr. Chapman- Morbid obesity ([facility])- Muscle weakness- Nausea- [facility] as [facility], was not compliant- PE (pulmonary thromboembolism) ([facility]) Post op INA/BSO.- Pneumonia- RLS (restless legs syndrome)- Shortness of breath- Sleep apnea using oxygen currently, not on CPAP- Unsteadiness on feet- WheezingPAST SURGICAL HISTORYProcedure Laterality Date- CHOLECYSTECTOMY- COLONOS W/REM POLYP SNARE 11/28/2016 Repeat 2020- COLONOSCOPY Has had multiple in the past with polyps, cannot remember dates- EGD W/O BRSH SPECIMEN W/BX 11/28/2016- HERNIA REPAIR HX multiple- KNEE SURGERY HX Left x3 for torn cartilage- NASAL SURGERY PROCEDURE sinus- TOTAL ABDOM HYSTERECTOMY 1987 Cervical cancer- TUBAL LIGATION HX- WRIST SURGERY HX Right ganglion cyst removal [id number] HISTORYProblem Relation Age of Onset- Coronary Artery Disease Mother- Coronary Artery Disease Father- Asthma Brother- Coronary Artery Disease Brother- Diabetes Sister- Hypertension Sister- Diabetes Sister- Heart Sister- Allergies Sister- Asthma Sister- Allergies Sister- Emphysema Sister ANDquot;Early stagesANDquot;- COPD Paternal UncleSocial History Marital status: Spouse name: Years of education: Number of children:Occupational HistoryOccupation Employer [employer] [facility], [facility]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.Social History Main Topics Smoking status: [...] been treated with long-acting nitrates.Electronically Signed:[facility] 2017 11:12 [facility]: Nahed Floyd MD 12/16/2017 11:13 AM SignedLIFESTYLE [...] programs in your area.Referring Provider: NANDA OLIVEIRA) [[id number]]Allergies As of Date: 12/16/2017 Noted Allergy ReactionADHESIVE [...] 16 - UnknownDate Reviewed: 12/16/2017Reviewed by: Florence Sim) Halina - Fully AssessedReason for Visit: Consult [502]Primary Visit Diagnosis:Preop cardiovascular exam [Z01.810] Other Visit Diagnoses:ASHD (arteriosclerotic heart disease) [I25.10] Hypertension, essential [I10]Order(s):NM CARDIAC PERF STRESS/PHARM [[id number]] Order #: [id number] FUTURE [] regadenoson (LEXISCAN) 0.4 mg/5 mL syrgInject 5 mL intravenously one time only for 1 dose. Give IV push over 10 seconds and follow with 5 ml of normal salineDisp: 5 mLRfl: 0 IV START - SPECIFY [[id number]] Order #: [id number]: 1 IV DISCONTINUE [[id number]] Order #: [id number]: 1Prescriptions as of 12/16/2017 Sig: REGADENOSON 0.4 [...] Essential hypertension [I10] Coronary artery disease of [place] artery of [place]oney* AF (paroxysmal atrial fibrillation) ([facility]) [I48.* COPD (chronic obstructive pulmonary disease) (H* GERD without esophagitis [K21.9] Dysphagia [R13.10] Constipation [K59.00] DM type 2 (diabetes mellitus, type 2) ([facility]) [E1* 02/14/2017 Shortness of breath [R06.02] 02/14/2017 Arthritis [M19.90] More... CHF (congestive heart failure) ([facility]) [I50.9] BPPV (benign paroxysmal positional vertigo) [H8*INVALID [...] the following areas and commit to making long winder tender changes. EAT A WHOLE FOOD, PLANT BASED [...] normal salineFollow-up and Disposition History RecordedEncounter Number: [id number] Status:Closed by DONAL ALBRIGHT MD on 12/18/17 [facility] PROGRESSon 12-16-2017 PROGRESS HNO ID: [id number]: Donal Callahan: (none)Author Type: PhysicianType: Progress NotesFiled: 12/18/2017 9:11 AMNote Text:PERTINENT CARDIAC HISTORYASHD - PCI 2004Atrial fib - chronicHTNHLDMOSA - CPAPPE/DVT 1988 - a/c 6 mosCRFCHF - diastolicADHERENCE TO GUIDELINESACE-I or ARB for HF with prior LVEF<40 (NQF 0081) - N/AASA or Plavix for ASHD (NQF 0067) - metBeta sudhakar for ASHD with prior CO or prior LVEF<40 (NQF 0070) - N/ABeta sudhakar for HF with prior LVEF<40 (NQF 0083) - N/AACE-I or ARB for ASHD with DM or prior LVEF<40 (NQF 0066) - low BPStatin therapy for ASHD or FHL or DM - metBMI documented and plan if >25 (NQF 0421) - lifestyle recommendation formTobacco use screening and referral (NQ 0028) - lifestyle recommendationformRecomm endation for whole [...] woman who is seen in consultation at [facility] of Dr. Wilson, in [facility]. She will beundergoing pyloroplasty for gastroparesis. She [...] has not been getting exerciseoutside the house.ALLERGIES:ALLERGIE Ellie Reactions- Adhesive Tape (Adrienne* Intolerance Surgical tape [...] shoes and inserts Dx:E11.65, Z79.4blood sugar diagnostic (Tablus ULTRA TEST) test strip Use as directed [...] Acute chronic obstructive pulmonary disease with respiratory failure([facility])- AF (paroxysmal atrial fibrillation) ([facility])- Anxiety- Arthritis Seeing Dr Elliott- Cervical cancer ([facility]) hysterectomy- CHF (congestive heart failure) ([facility])- Chronic back pain Seeing Dr. Wallace- Constipation- COPD (chronic obstructive pulmonary disease) ([facility])- Coronary atherosclerosis of [place] coronary artery Previously seeing Dr. Sosa- DDD (degenerative disc disease), lumbar- DM type 2 (diabetes mellitus, type 2) ([facility]) Seeing Dr. Foley for podiatry- DVT (deep venous thrombosis) ([facility]) Post op INA, BSO.- Dysphagia Seeing Dr. Beaulieu- Emphysema lung ([facility])- Essential hypertension- Functional dyspepsia- Gastroparesis 2016 mild- GERD without esophagitis- Headache- History of colon polyps 11/28/2016- Hyperlipidemia- Hypothyroidism- Incontinence Seeing Dr. Chapman- Morbid obesity ([facility])- Muscle weakness- Nausea- PARESH on CPAP [facility], no longer using as of 10/2017, was notcompliant- PE (pulmonary thromboembolism) ([facility]) Post op INA/BSO.- Pneumonia- RLS (restless legs syndrome)- Shortness of breath- Sleep apnea using oxygen currently, not on CPAP- Unsteadiness on feet- WheezingPAST SURGICAL HISTORYProcedure Laterality Date- CHOLECYSTECTOMY- COLONOS W/REM POLYP SNARE 11/28/2016 Repeat 2020- COLONOSCOPY Has had multiple in the past with polyps, cannot remember dates- EGD W/O BRSH SPECIMEN W/BX 11/28/2016- HERNIA REPAIR HX multiple- KNEE SURGERY HX Left x3 for torn cartilage- NASAL SURGERY PROCEDURE sinus- TOTAL ABDOM HYSTERECTOMY 1987 Cervical cancer- TUBAL LIGATION HX- WRIST SURGERY HX Right ganglion cyst removal [id number] HISTORYProblem Relation Age of Onset- Coronary Artery Disease Mother- Coronary Artery Disease Father- Asthma Brother- Coronary Artery Disease Brother- Diabetes Sister- Hypertension Sister- Diabetes Sister- Heart Sister- Allergies Sister- Asthma Sister- Allergies Sister- Emphysema Sister Early stages- COPD Paternal UncleSocial History Marital status: Spouse name: Years of education: Number of children:Occupational HistoryOccupation Employer Comment[employer], [employer].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 Dylon Murrieta MD Work Phone: [facility] 06-19-2025 16:58-0400 Diastolic blood pressure 90 mm[Hg] Dr. Dylon Murrieta MD Work Phone: [facility] 06-19-2025 16:58-0400 Heart rate 95 /min Dr. Dylon Murrieta MD Work Phone: [facility] 06-19-2025 16:58-0400 Respiratory rate 18 /min Dr. Dylon Murrieta MD Work Phone: [facility] 06-19-2025 16:58-0400 SaO2% (BldA) [Mass fraction] 95 % Dr. Dylon Murrieta MD Work Phone: [facility] 06-19-2025 16:58-0400 Systolic blood pressure 132 mm[Hg] Dr. Dylon Murrieta MD Work Phone: 3(225)212-348288 [place] [address] 06-19-2025 13:36-0400 Body height 154.[address] Dylon Murrieta MD Work Phone: 8(020)951-911888 [place] [address] 06-19-2025 13:36-0400 Body mass index (BMI) [Ratio] 30.2 kg/m2 Dr. Dylon Murrieta MD Work Phone: 0(816)566-408788 [place] [address] 06-19-2025 13:36-0400 Body weight 72.[address] Dylon Murrieta MD Work Phone: 6(824)162-633388 [place] [address] 01-03-2025 14:46-0400 Body height 154.[address] Dylon Murrieta MD Work Phone: 4(199)748-963488 [place] [address] 01-03-2025 14:46-0400 Diastolic blood pressure 96 mm[Hg] Dr. Dylon Murrieta MD Work Phone: 7(573)110-333488 [place] [address] 01-03-2025 14:46-0400 Heart rate 113 /min Dr. Dylon Murrieta MD Work Phone: 5(347)106-187588 [place] [address] 01-03-2025 14:46-0400 Inhaled oxygen flow rate 2 L/min Dr. Dylon Murrieta MD Work Phone: 9(838)549-762488 [place] [address] 01-03-2025 14:46-0400 Respiratory rate 16 /min Dr. Dylon Murrieta MD Work Phone: 9(922)027-474688 [place] [address] 01-03-2025 14:46-0400 SaO2% (BldA) [Mass fraction] 98 % Dr. Dylon Murrieta MD Work Phone: [facility] 01-03-2025 14:46-0400 Systolic blood pressure 165 mm[Hg] Dr. Dylon Murrieta MD Work Phone: 1(309)594-495088 [place] [address] 12-05-2024 00:52-0400 Body temperature 98.6 [degF] Dr. Dylon Murrieta MD Work Phone: 1(661)275-359588 [place] [address] 12-05-2024 00:52-0400 Diastolic blood pressure 89 mm[Hg] Dr. Dylon Murrieta MD Work Phone: 7(249)680-114426 [place] [address] 12-05-2024 00:52-0400 Heart rate 93 /min Dr. Dylon Murrieta MD Work Phone: 2(739)095-821726 [place] [address] 12-05-2024 00:52-0400 Respiratory rate 20 /min Dr. Dylon Murrieta MD Work Phone: 3(766)925-319826 [place] [address] 12-05-2024 00:52-0400 SaO2% (BldA) [Mass fraction] 93 % Dr. Dylon Murrieta MD Work Phone: 9(358)257-523526 [place] [address] 12-05-2024 00:52-0400 Systolic blood pressure 142 mm[Hg] Dr. Dylon Murrieta MD Work Phone: 2(246)133-268526 [place] [address] 12-05-2024 00:30-0400 Inhaled oxygen flow rate 3 L/min Dr. Dylon Murrieta MD Work Phone: 8(954)496-674626 [place] [address] 12-04-2024 15:13-0400 Body height 154.[address] Dylon Murrieta MD Work Phone: 5(587)487-565326 [place] [address] 12-04-2024 15:13-0400 Body mass index (BMI) [Ratio] 36.6 kg/m2 Dr. Dylon Murrieta MD Work Phone: 3(565)980-642188 [place] [address] 12-04-2024 15:13-0400 Body weight 87.[address] Dylon Murrieta MD Work Phone: 5(936)129-945326 [place] [address] 11-04-2024 14:15-0500 Body mass index (BMI) [Ratio] 35.5 kg/m2 Dr. Dylon Murrieta MD Work Phone: 8(790)194-416188 [place] [address] 11-04-2024 14:15-0500 Body weight 85.[address] Dylon Murrieta MD Work Phone: 2(358)345-572626 [place] [address] 11-04-2024 14:15-0500 Diastolic blood pressure 77 mm[Hg] Dr. Dylon Murrieta MD Work Phone: 4(944)259-085788 [place] [address] 11-04-2024 14:15-0500 Heart rate 73 /min Dr. Dylon Murrieta MD Work Phone: 7(862)201-200288 [place] [address] 11-04-2024 14:15-0500 Inhaled oxygen flow rate 3 L/min Dr. Dylon Murrieta MD Work Phone: 0(632)126-292326 [place] [address] 11-04-2024 14:15-0500 Respiratory rate 20 /min Dr. Dylon Murrieta MD Work Phone: 5(629)614-292526 [place] [address] 11-04-2024 14:15-0500 SaO2% (BldA) [Mass fraction] 95 % Dr. Dylon Murrieta MD Work Phone: 6(989)729-877226 [place] [address] 11-04-2024 14:15-0500 Systolic blood pressure 115 mm[Hg] Dr. Dylon Murrieta MD Work Phone: 5(628)189-612726 [place] [address] 10-27-2024 13:36-0500 Body mass index (BMI) [Ratio] 35.6 kg/m2 Dr. Dylon Murrieta MD Work Phone: 4(615)851-117726 [place] [address] 10-27-2024 13:36-0500 Body weight 85.[address] Dylon Murrieta MD Work Phone: 7(805)398-628926 [place] [address] 10-27-2024 13:36-0500 Diastolic blood pressure 77 mm[Hg] Dr. Dylon Murrieta MD Work Phone: 5(097)621-981126 [place] [address] 10-27-2024 13:36-0500 Heart rate 75 /min Dr. Dylon Murrieta MD Work Phone: 0(394)001-419726 [place] [address] 10-27-2024 13:36-0500 Inhaled oxygen flow rate 3 L/min Dr. Dylon Murrieta MD Work Phone: 4(941)527-299888 [place] [address] 10-27-2024 13:36-0500 Respiratory rate 20 /min Dr. Dylon Murrieta MD Work Phone: 3(897)078-899526 [place] [address] 10-27-2024 13:36-0500 SaO2% (BldA) [Mass fraction] 96 % Dr. Dylon Murrieta MD Work Phone: [facility] 10-27-2024 13:36-0500 Systolic blood pressure 122 mm[Hg] Dr. Dylon Murrieta MD Work Phone: [facility] 05-03-2024 15:26-0400 Body mass index (BMI) [Ratio] 35.48 kg/m2 Megan Renee MD Work Phone: [facility] 05-03-2024 15:26-0400 Body weight 88 kg Megan Renee MD Work Phone: [facility] 05-03-2024 15:26-0400 Diastolic blood pressure 76 mm[Hg] Megan Renee MD Work Phone: [facility] 05-03-2024 15:26-0400 Systolic blood pressure 130 mm[Hg] Megan Renee MD Work Phone: [facility] 01-26-2024 09:40-0400 Body temperature 97 [degF] Dr. Dylon Murrieta Work Phone: [facility] 01-26-2024 09:40-0400 Diastolic blood pressure 80 mm[Hg] Dr. Dylon Murrieta Work Phone: [facility] 01-26-2024 09:40-0400 Heart rate 77 /min Dr. Dylon Murrieta Work Phone: [facility] 01-26-2024 09:40-0400 Inhaled oxygen flow rate 3 L/min Dr. Dylon Murrieta Work Phone: [facility] 01-26-2024 09:40-0400 Respiratory rate 16 /min Dr. Dylon Murrieta Work Phone: [facility] 01-26-2024 09:40-0400 SaO2% (BldA) [Mass fraction] 100 % Dr. Dylon Murrieta Work Phone: [facility] 01-26-2024 09:40-0400 Systolic blood pressure 124 mm[Hg] Dr. Dylon Murrieta Work Phone: [facility] 01-26-2024 08:22-0400 Body height 154.[address] Dylon Murrieta Work Phone: [facility] 01-26-2024 08:22-0400 Body mass index (BMI) [Ratio] 37 kg/m2 Dr. Dylon Murrieta Work Phone: [facility] 01-26-2024 08:22-0400 Body weight [address] Dylon Murrieta Work Phone: [facility] 11-27-2023 12:47-0500 Body temperature 97 [degF] Dr. Bhupendra Oliveira Work Phone: [facility] 11-27-2023 12:47-0500 Diastolic blood pressure 65 mm[Hg] Dr. Bhupendra Oliveira Work Phone: [facility] 11-27-2023 12:47-0500 Heart rate 96 /min Dr. Bhupendra Oliveira Work Phone: [facility] 11-27-2023 12:47-0500 Respiratory rate 16 /min Dr. Bhupendra Oliveira Work Phone: [facility] 11-27-2023 12:47-0500 SaO2% (BldA) [Mass fraction] 94 % Dr. Bhupendra Oliveira Work Phone: [facility] 11-27-2023 12:47-0500 Systolic blood pressure 118 mm[Hg] Dr. Bhupendra Oliveira Work Phone: [facility] 11-27-2023 11:40-0500 Inhaled oxygen flow rate 4 L/min Dr. Bhupendra Oliveira Work Phone: [facility] 11-27-2023 10:41-0500 Body height 154.[address] Bhupendra Oliveira Work Phone: [facility] 11-27-2023 10:41-0500 Body mass index (BMI) [Ratio] 36.2 kg/m2 Dr. Bhupendra Oliveira Work Phone: 9(101)674-602543 [place] [address] 11-27-2023 10:41-0500 Body weight [address] Bhupendra Oliveira Work Phone: 5(728)129-822249 [place] [address] 09-02-2023 09:19-0500 Body height 154.[address] Bhupendra Oliveira Work Phone: 7(678)051-904749 [place] [address] 09-02-2023 09:17-0500 Body mass index (BMI) [Ratio] 36.4 kg/m2 Dr. Bhupendra Oliveira Work Phone: 0(370)917-107749 [place] [address] 09-02-2023 09:17-0500 Body weight 87.[address] Bhupendra Oliveira Work Phone: 6(753)596-172649 [place] [address] 09-02-2023 09:17-0500 Diastolic blood pressure 77 mm[Hg] Dr. Bhupendra Oliveira Work Phone: 0(126)267-698049 [place] [address] 09-02-2023 09:17-0500 Heart rate 58 /min Dr. Bhupendra Oliveira Work Phone: 2(824)605-279549 [place] [address] 09-02-2023 09:17-0500 Respiratory rate 20 /min Dr. Bhupendra Oliveira Work Phone: 0(776)378-168449 [place] [address] 09-02-2023 09:17-0500 SaO2% (BldA) [Mass fraction] 100 % Dr. Bhupendra Oliveira Work Phone: 2(826)726-223949 [place] [address] 09-02-2023 09:17-0500 Systolic blood pressure 116 mm[Hg] Dr. Bhupendra Oliveira Work Phone: 2(017)834-886249 [place] [address] 08-20-2023 15:40-0500 Body temperature 98.9 [degF] Dr. Bhupendra Oliveira Work Phone: 5(626)718-967149 [place] [address] 08-20-2023 15:40-0500 Diastolic blood pressure 69 mm[Hg] Dr. Bhupendra Oliveira Work Phone: 6(501)410-604249 [place] [address] 08-20-2023 15:40-0500 Heart rate 105 /min Dr. Bhupendra Oliveira Work Phone: 0(471)516-305249 [place] [address] 08-20-2023 15:40-0500 Inhaled oxygen flow rate 1 L/min Dr. Bhupendra Oliveira Work Phone: 9(366)262-977749 [place] [address] 08-20-2023 15:40-0500 Respiratory rate 18 /min Dr. Bhupendra Oliveira Work Phone: 1(240)167-944649 [place] [address] 08-20-2023 15:40-0500 SaO2% (BldA) [Mass fraction] 100 % Dr. Bhupendra Oliveira Work Phone: 1(245)533-103849 [place] [address] 08-20-2023 15:40-0500 Systolic blood pressure 106 mm[Hg] Dr. Bhupendra Oliveira Work Phone: 3(271)316-360549 [place] [address] 08-20-2023 05:57-0500 Body mass index (BMI) [Ratio] 36.9 kg/m2 Dr. Bhupendra Oliveira Work Phone: 3(788)272-536849 [place] [address] 08-20-2023 05:57-0500 Body weight 88.[address] Bhupendra Oliveira Work Phone: 6(311)172-115149 [place] [address] 08-18-2023 09:24-0500 Body height 154.[address] Bhupendra Oliveira Work Phone: 4(774)167-135649 [place] [address] 08-13-2023 21:51-0500 Diastolic blood pressure 96 mm[Hg] Dr. Bhupendra Oliveira Work Phone: 5(604)209-400249 [place] [address] 08-13-2023 21:51-0500 Heart rate 117 /min Dr. Bhupendra Oliveira Work Phone: 7(540)074-077449 [place] [address] 08-13-2023 21:51-0500 Respiratory rate 20 /min Dr. Bhupendra Oliveira Work Phone: 3(660)671-813149 [place] [address] 08-13-2023 21:51-0500 SaO2% (BldA) [Mass fraction] 99 % Dr. Bhupendra Oliveira Work Phone: 1(121)445-589349 [place] [address] 08-13-2023 21:51-0500 Systolic blood pressure 144 mm[Hg] Dr. Bhupendra Oliveira Work Phone: [facility] 08-13-2023 17:22-0500 Inhaled oxygen flow rate 3 L/min Dr. Bhupendra Oliveira Work Phone: [facility] 08-13-2023 15:20-0500 Body temperature 98.7 [degF] Dr. Bhupendra Oliveira Work Phone: [facility] 08-13-2023 14:50-0500 Body height 154.[address] Bhupendra Oliveira Work Phone: [facility] 08-13-2023 14:50-0500 Body mass index (BMI) [Ratio] 38.3 kg/m2 Dr. Bhupendra Oliveira Work Phone: [facility] 08-13-2023 14:50-0500 Body weight 92.[address] Bhupendra Oliveira Work Phone: [facility] 08-13-2023 14:32-0500 Diastolic blood pressure 77 mm[Hg] Nanda Oliveira MD Work Phone: [facility] 08-13-2023 14:32-0500 Heart rate 120 /min Nanda Oliveira MD Work Phone: [facility] 08-13-2023 14:32-0500 Systolic blood pressure 111 mm[Hg] Nanda Oliveira MD Work Phone: [facility] 08-13-2023 13:32-0500 Body temperature 100.8 [degF] Nanda Oliveira MD Work Phone: [facility] 08-13-2023 13:32-0500 Respiratory rate 16 /min Nanda Oliveira MD Work Phone: [facility] 08-13-2023 13:32-0500 SaO2% (BldA) [Mass fraction] 99 % Nanda Oliveira MD Work Phone: [facility] 07-02-2023 08:11-0400 Body mass index (BMI) [Ratio] 37.4 kg/m2 Dr. Bhupendra Oliveira Work Phone: 4(904)610-973843 [place] [address] 07-02-2023 08:11-0400 Body weight 89.[address] Bhupendra Oliveira Work Phone: 6(273)157-951849 [place] [address] 07-02-2023 08:11-0400 Diastolic blood pressure 70 mm[Hg] Dr. Bhupendra Oliveira Work Phone: 3(042)385-557749 [place] [address] 07-02-2023 08:11-0400 Heart rate 75 /min Dr. Bhupendra Oliveira Work Phone: 8(858)929-745749 [place] [address] 07-02-2023 08:11-0400 Inhaled oxygen flow rate 3 L/min Dr. Bhupendra Oliveira Work Phone: 7(523)420-895149 [place] [address] 07-02-2023 08:11-0400 Respiratory rate 20 /min Dr. Bhupendra Oliveira Work Phone: 9(726)227-989649 [place] [address] 07-02-2023 08:11-0400 SaO2% (BldA) [Mass fraction] 99 % Dr. Bhupendra Oliveira Work Phone: 9(708)979-300743 [place] [address] 07-02-2023 08:11-0400 Systolic blood pressure 108 mm[Hg] Dr. Bhupendra Oliveira Work Phone: 4(471)446-412949 [place] [address] 06-10-2023 15:23-0400 Diastolic blood pressure 64 mm[Hg] Dr. Bhupendra Oliveira Work Phone: 8(432)950-421049 [place] [address] 06-10-2023 15:23-0400 Heart rate 87 /min Dr. Bhupendra Oliveira Work Phone: 1(693)345-209843 [place] [address] 06-10-2023 15:23-0400 Inhaled oxygen flow rate 3 L/min Dr. Bhupendra Oliveira Work Phone: 5(861)899-375049 [place] [address] 06-10-2023 15:23-0400 Respiratory rate 20 /min Dr. Bhupendra Oliveira Work Phone: 3(008)285-262049 [place] [address] 06-10-2023 15:23-0400 SaO2% (BldA) [Mass fraction] 99 % Dr. Bhupendra Oliveira Work Phone: 9(763)766-456943 [place] [address] 06-10-2023 15:23-0400 Systolic blood pressure 118 mm[Hg] Dr. Bhupendra Oliveira Work Phone: 6(888)411-842643 [place] [address] 06-10-2023 14:18-0400 Body mass index (BMI) [Ratio] 37.7 kg/m2 Dr. Bhupendra Oliveira Work Phone: 2(553)393-264343 [place] [address] 06-10-2023 14:18-0400 Body weight 90.[address] Bhupendra Oliveira Work Phone: 4(100)112-489349 [place] [address] 06-10-2023 14:07-0400 Body height 154.[address] Bhupendra Oliveira Work Phone: 7(420)926-232349 [place] [address] 06-10-2023 14:07-0400 Body temperature 96.9 [degF] Dr. Bhupendra Oliveira Work Phone: 5(648)945-560949 [place] [address] 06-05-2023 16:20-0400 Body temperature 98.4 [degF] Dr. Bhupendra Oilveira Work Phone: 0(214)054-605143 [place] [address] 06-05-2023 16:20-0400 Diastolic blood pressure 63 mm[Hg] Dr. Bhupendra Oliveira Work Phone: 4(161)998-694243 [place] [address] 06-05-2023 16:20-0400 Heart rate 92 /min Dr. Bhupendra Oliveira Work Phone: 3(645)674-593843 [place] [address] 06-05-2023 16:20-0400 Inhaled oxygen flow rate 2 L/min Dr. Bhupendra Oliveira Work Phone: 3(265)420-164743 [place] [address] 06-05-2023 16:20-0400 Respiratory rate 18 /min Dr. Bhupendra Oliveira Work Phone: 5(804)767-389843 [place] [address] 06-05-2023 16:20-0400 SaO2% (BldA) [Mass fraction] 99 % Dr. Bhupendra Oliveira Work Phone: 1(642)921-864543 [place] [address] 06-05-2023 16:20-0400 Systolic blood pressure 104 mm[Hg] Dr. Bhupendra Oliveira Work Phone: [facility] 06-03-2023 15:09-0400 Body height 154.[address] Bhupendra Oliveira Work Phone: [facility] 06-03-2023 15:09-0400 Body mass index (BMI) [Ratio] 38.4 kg/m2 Dr. Bhupendra Oliveira Work Phone: [facility] 06-03-2023 15:09-0400 Body weight 92.[address] Bhupendra Oliveira Work Phone: [facility] 05-15-2023 18:27-0400 Body height 154.94 cm [place] 05-15-2023 18:27-0400 Body temperature 97.6 [degF] [facility] 05-15-2023 18:27-0400 Diastolic blood pressure 51 mm[Hg] [facility] 05-15-2023 18:27-0400 Heart rate 87 /min [place] 05-15-2023 18:27-0400 Respiratory rate 18 /min [facility] 05-15-2023 18:27-0400 SaO2% (BldA) [Mass fraction] 100 % [facility] 05-15-2023 18:27-0400 Systolic blood pressure 90 mm[Hg] [facility] 05-13-2023 12:18-0400 Body weight 89.9 kg Katie Podlogar REGISTERED RESPIRATORY THERAPIST.MACHINE CLOTH EXAMINER Work Phone: [facility] 05-13-2023 12:18-0400 Diastolic blood pressure 62 mm[Hg] Katie Podlogar REGISTERED RESPIRATORY THERAPIST.MACHINE CLOTH EXAMINER Work Phone: [facility] 05-13-2023 12:18-0400 Heart rate 64 /min Katie Podlogar REGISTERED RESPIRATORY THERAPIST.MACHINE CLOTH EXAMINER Work Phone: [facility] 05-13-2023 12:18-0400 Respiratory rate 18 /min Katie Podlogar REGISTERED RESPIRATORY THERAPIST.MACHINE CLOTH EXAMINER Work Phone: [facility] 05-13-2023 12:18-0400 SaO2% (BldA) [Mass fraction] 99 % Katie Podlogar REGISTERED RESPIRATORY THERAPIST.MACHINE CLOTH EXAMINER Work Phone: [facility] 05-13-2023 12:18-0400 Systolic blood pressure 104 mm[Hg] Katie Podlogar REGISTERED RESPIRATORY THERAPIST.MACHINE CLOTH EXAMINER Work Phone: [facility] 04-23-2023 23:13-0400 Diastolic blood pressure 92 mm[Hg] [facility] 04-23-2023 23:13-0400 Heart rate 85 /min [place] 04-23-2023 23:13-0400 Respiratory rate 17 /min [facility] 04-23-2023 23:13-0400 SaO2% (BldA) [Mass fraction] 100 % [facility] 04-23-2023 23:13-0400 Systolic blood pressure 158 mm[Hg] [facility] 04-23-2023 22:09-0400 Inhaled oxygen flow rate 3 L/min [facility] 04-23-2023 18:01-0400 Body mass index (BMI) [Ratio] 37.6 kg/m2 [facility] 04-23-2023 18:01-0400 Body weight 90.3 kg [place] 04-23-2023 17:59-0400 Body height 154.94 cm [place] 04-23-2023 17:59-0400 Body temperature 97.6 [degF] [facility] 04-03-2023 14:05-0400 Body weight 89.81 kg Sury [place] REGISTERED RESPIRATORY THERAPIST.MACHINE CLOTH EXAMINER Work Phone: [facility] 04-03-2023 14:05-0400 Diastolic blood pressure 72 mm[Hg] Sury Live REGISTERED RESPIRATORY THERAPIST.MACHINE CLOTH EXAMINER Work Phone: [facility] 04-03-2023 14:05-0400 Systolic blood pressure 118 mm[Hg] Sury [place] REGISTERED RESPIRATORY THERAPIST.MACHINE CLOTH EXAMINER Work Phone: [facility] 03-17-2023 14:29-0400 Body weight 89.99 kg Nanda Oliveira MD Work Phone: [facility] 03-17-2023 14:29-0400 Diastolic blood pressure 66 mm[Hg] Nanda Oliveira MD Work Phone: [facility] 03-17-2023 14:29-0400 Heart rate 76 /min Nanda Oliveira MD Work Phone: [facility] 03-17-2023 14:29-0400 Respiratory rate 16 /min Nanda Oliveira MD Work Phone: [facility] 03-17-2023 14:29-0400 SaO2% (BldA) [Mass fraction] 96 % Nanda Oliveira MD Work Phone: [facility] 03-17-2023 14:29-0400 Systolic blood pressure 118 mm[Hg] Nanda Oliveira MD Work Phone: [facility] 2023 18:14-0400 Diastolic blood pressure 63 mm[Hg] Dr. Bhupendra Oliveira Work Phone: 5(128)195-232843 [place] [address] 2023 18:14-0400 Heart rate 95 /min Dr. Bhupendra Oliveira Work Phone: 8(679)730-006843 [place] [address] 2023 18:14-0400 Respiratory rate 18 /min Dr. Bhupendra Oliveira Work Phone: 3(140)985-715443 [place] [address] 2023 18:14-0400 SaO2% (BldA) [Mass fraction] 100 % Dr. Bhupendra Oliveira Work Phone: 6(747)485-743743 [place] [address] 2023 18:14-0400 Systolic blood pressure 141 mm[Hg] Dr. Bhupendra Oliveira Work Phone: 7(794)141-827849 [place] [address] 2023 17:09-0400 Body temperature 97.8 [degF] Dr. Bhupendra Oliveira Work Phone: 0(625)122-431743 [place] [address] 2023 17:09-0400 Inhaled oxygen flow rate 3 L/min Dr. Bhupendra Oliveira Work Phone: 3(942)588-094143 [place] [address] 2023 15:18-0400 Body mass index (BMI) [Ratio] 37.4 kg/m2 Dr. Bhupendra Oliveira Work Phone: 2(174)102-840349 [place] [address] 2023 15:18-0400 Body weight [address] Bhupendra Oliveira Work Phone: 7(255)324-160349 [place] [address] 2023 13:32-0400 Body height 154.[address] Bhupendra Oliveira Work Phone: 1(405)586-430449 [place] [address] 01-14-2023 03:03-0400 Diastolic blood pressure 89 mm[Hg] Dr. Bhupendra Oliveira Work Phone: 2(622)342-730049 [place] [address] 01-14-2023 03:03-0400 Heart rate 105 /min Dr. Bhupendra Oliveira Work Phone: 0(861)907-289149 [place] [address] 01-14-2023 03:03-0400 Respiratory rate 24 /min Dr. Bhupendra Oliveira Work Phone: 0(050)967-857249 [place] [address] 01-14-2023 03:03-0400 SaO2% (BldA) [Mass fraction] 96 % Dr. Bhupendra Oliveira Work Phone: 9(689)821-019849 [place] [address] 01-14-2023 03:03-0400 Systolic blood pressure 135 mm[Hg] Dr. Bhupendra Oliveira Work Phone: 2(486)115-815149 [place] [address] 01-14-2023 00:57-0400 Body height 154.[address] Bhupendra Oliveira Work Phone: 8(835)646-167949 [place] [address] 01-14-2023 00:57-0400 Body mass index (BMI) [Ratio] 36 kg/m2 Dr. Bhupendra Oliveira Work Phone: 3(222)161-963043 [place] [address] 01-14-2023 00:57-0400 Body temperature 96.8 [degF] Dr. Bhupendra Oliveira Work Phone: 0(242)202-096349 [place] [address] 01-14-2023 00:57-0400 Body weight 86.[address] Bhupendra Oliveira Work Phone: 4(221)880-617349 [place] [address] 01-14-2023 00:57-0400 Inhaled oxygen flow rate 3 L/min Dr. Bhupendra Oliveira Work Phone: 8(201)281-999349 [place] [address] 01-04-2023 00:07-0400 Diastolic blood pressure 79 mm[Hg] Dr. Bhupendra Oliveira Work Phone: 9(580)669-824449 [place] [address] 01-04-2023 00:07-0400 Heart rate 75 /min Dr. Bhupendra Oliveira Work Phone: 0(689)924-759049 [place] [address] 01-04-2023 00:07-0400 Respiratory rate 18 /min Dr. Bhupendra Oliveira Work Phone: 0(630)136-228549 [place] [address] 01-04-2023 00:07-0400 SaO2% (BldA) [Mass fraction] 100 % Dr. Bhupendra Oliveira Work Phone: 8(462)334-894049 [place] [address] 01-04-2023 00:07-0400 Systolic blood pressure 128 mm[Hg] Dr. Bhupendra Oliveira Work Phone: 5(885)347-733549 [place] [address] 01-03-2023 18:06-0400 Body mass index (BMI) [Ratio] 36.4 kg/m2 Dr. Bhupendra Oliveira Work Phone: 1(124)149-953149 [place] [address] 01-03-2023 18:06-0400 Body temperature 97.5 [degF] Dr. Bhupendra Oliveira Work Phone: 4(003)796-021049 [place] [address] 01-03-2023 18:06-0400 Body weight 87.[address] Bhupendra Oliveira Work Phone: 8(387)883-626049 [place] [address] 01-03-2023 18:06-0400 Inhaled oxygen flow rate 3 L/min Dr. Bhupendra Oliveira Work Phone: 3(358)413-357249 [place] [address] 01-03-2023 17:30-0400 Body height 154.[address] Bhupendra Oliveira Work Phone: 3(726)662-402449 [place] [address] 01-03-2023 16:49-0400 Body temperature 97.11 [degF] Almita Youssef PA-C Work Phone: [facility] 01-03-2023 16:49-0400 Body weight 83.01 kg Almita Athy PA-C Work Phone: [facility] 01-03-2023 16:49-0400 Diastolic blood pressure 82 mm[Hg] Almita Athy PA-C Work Phone: [facility] 01-03-2023 16:49-0400 Heart rate 58 /min Almita Athy PA-C Work Phone: [facility] 01-03-2023 16:49-0400 Respiratory rate 18 /min Almita Athy PA-C Work Phone: [facility] 01-03-2023 16:49-0400 SaO2% (BldA) [Mass fraction] 98 % Almita Athy PA-C Work Phone: [facility] 01-03-2023 16:49-0400 Systolic blood pressure 126 mm[Hg] Almita Athy PA-C Work Phone: [facility] 12-20-2022 16:14-0400 Body temperature 98.7 [degF] Dr. Bhupendra Oliveira Work Phone: [facility] 12-20-2022 16:14-0400 Diastolic blood pressure 84 mm[Hg] Dr. Bhupendra Oliveira Work Phone: [facility] 12-20-2022 16:14-0400 Heart rate 78 /min Dr. Bhupendra Oliveira Work Phone: [facility] 12-20-2022 16:14-0400 Inhaled oxygen flow rate 3 L/min Dr. Bhupendra Oliveira Work Phone: [facility] 12-20-2022 16:14-0400 Respiratory rate 18 /min Dr. Bhupendra Oliveira Work Phone: [facility] 12-20-2022 16:14-0400 SaO2% (BldA) [Mass fraction] 98 % Dr. Bhupendra Oliveira Work Phone: 0(449)574-130949 [place] [address] 12-20-2022 16:14-0400 Systolic blood pressure 132 mm[Hg] Dr. Bhupendra Oliveira Work Phone: 0(192)564-930449 [place] [address] 12-19-2022 11:40-0400 Body height 154.[address] Bhupendra Oliveira Work Phone: 9(326)558-447849 [place] [address] 12-19-2022 11:40-0400 Body weight 91.[address] Bhupendra Oliveira Work Phone: 7(514)404-843249 [place] [address] 12-18-2022 22:27-0400 Body mass index (BMI) [Ratio] 38.1 kg/m2 Dr. Bhupendra Oliveira Work Phone: 2(685)021-652749 [place] [address] 11-29-2022 15:47-0500 Body mass index (BMI) [Ratio] 34.9 kg/m2 Dr. Bhupendra Oliveira Work Phone: 0(283)899-507049 [place] [address] 11-29-2022 15:47-0500 Body weight 86.[address] Bhupendra Oliveira Work Phone: 3(088)403-576649 [place] [address] 11-29-2022 15:47-0500 Diastolic blood pressure 82 mm[Hg] Dr. Bhupendra Oliveira Work Phone: 1(174)104-111549 [place] [address] 11-29-2022 15:47-0500 Heart rate 83 /min Dr. Bhupendra Oliveira Work Phone: 7(120)798-514349 [place] [address] 11-29-2022 15:47-0500 Respiratory rate 18 /min Dr. Bhupendra Oliveira Work Phone: 5(375)311-878549 [place] [address] 11-29-2022 15:47-0500 SaO2% (BldA) [Mass fraction] 100 % Dr. Bhupendra Oliveira Work Phone: 9(895)924-143349 [place] [address] 11-29-2022 15:47-0500 Systolic blood pressure 131 mm[Hg] Dr. Bhupendra Oliveira Work Phone: 9(978)253-295149 [place] [address] 11-07-2022 11:45-0500 Body height [address] ARLYN LESLIE MD [facility] 11-07-2022 11:45-0500 Body weight 86.[address] ARLYN LESLIE MD [facility] 10-04-2022 13:47-0500 Body height 157.[address] Bhupendra Oliveira Work Phone: 6(485)416-578743 [place] [address] 10-04-2022 13:47-0500 Body mass index (BMI) [Ratio] 33.5 kg/m2 Dr. Bhupendra Oliveira Work Phone: 6(759)196-376349 [place] [address] 10-04-2022 13:47-0500 Body weight [address] Bhupendra Oliveira Work Phone: 2(269)071-189043 [place] [address] 10-04-2022 13:47-0500 Diastolic blood pressure 88 mm[Hg] Dr. Bhupendra Oliveira Work Phone: 0(669)240-850943 [place] [address] 10-04-2022 13:47-0500 Heart rate 85 /min Dr. Bhupendra Oliveira Work Phone: 4(273)979-169143 [place] [address] 10-04-2022 13:47-0500 Inhaled oxygen flow rate 3 L/min Dr. Bhupendra Oliveira Work Phone: 6(217)121-079143 [place] [address] 10-04-2022 13:47-0500 Respiratory rate 18 /min Dr. Bhupendra Oliveira Work Phone: 8(823)863-867543 [place] [address] 10-04-2022 13:47-0500 SaO2% (BldA) [Mass fraction] 100 % Dr. Bhupendra Oliveira Work Phone: [facility] 10-04-2022 13:47-0500 Systolic blood pressure 117 mm[Hg] Dr. Bhupendra Oliveira Work Phone: [facility] 09-27-2022 11:29-0500 Body temperature 97.39 [degF] Nanda Oliveira MD Work Phone: [facility] 09-27-2022 11:29-0500 Body weight 83.37 kg Nanda Oliveira MD Work Phone: [facility] 09-27-2022 11:29-0500 Diastolic blood pressure 84 mm[Hg] Nanda Oliveira MD Work Phone: [facility] 09-27-2022 11:29-0500 Heart rate 75 /min Nanda Oliveira MD Work Phone: [facility] 09-27-2022 11:29-0500 Respiratory rate 16 /min Nanda Oliveira MD Work Phone: [facility] 09-27-2022 11:29-0500 SaO2% (BldA) [Mass fraction] 99 % Nanda Oliveira MD Work Phone: [facility] 09-27-2022 11:29-0500 Systolic blood pressure 128 mm[Hg] Nanda Oliveira MD Work Phone: [facility] 08-08-2022 13:39-0500 Body temperature 97.9 [degF] Dr. Bhupendra Oliveira Work Phone: [facility] 08-08-2022 13:39-0500 Diastolic blood pressure 72 mm[Hg] Dr. Bhupendra Oliveira Work Phone: 0(272)013-166543 [place] [address] 08-08-2022 13:39-0500 Heart rate 99 /min Dr. Bhupendra Oliveira Work Phone: 5(505)234-046243 [place] [address] 08-08-2022 13:39-0500 Inhaled oxygen flow rate 3 L/min Dr. Bhupendra Oliveira Work Phone: [facility] 08-08-2022 13:39-0500 Respiratory rate 16 /min Dr. Bhupendra Oliveira Work Phone: [facility] 08-08-2022 13:39-0500 SaO2% (BldA) [Mass fraction] 99 % Dr. Bhupendra Oliveira Work Phone: [facility] 08-08-2022 13:39-0500 Systolic blood pressure 119 mm[Hg] Dr. Bhupendra Oliveira Work Phone: [facility] 08-05-2022 12:17-0500 Body height 157.[address] Bhupendra Oliveira Work Phone: [facility] Work Phone: 08-05-2022 12:17-0500 Body mass index (BMI) [Ratio] 35.6 kg/m2 Dr. Bhupendra Oliveira Work Phone: [facility] 08-05-2022 12:17-0500 Body weight 88.[address] Bhupendra Oliveira Work Phone: [facility] 08-03-2022 20:22-0500 Body temperature 97.9 [degF] Dr. Bhupendra Oliveira Work Phone: [facility] Work Phone: 08-03-2022 20:22-0500 Diastolic blood pressure 94 mm[Hg] Dr. Bhupendra Oliveira Work Phone: [facility] Work Phone: 08-03-2022 20:22-0500 Heart rate 78 /min Dr. Bhupendra Oliveira Work Phone: [facility] Work Phone: 08-03-2022 20:22-0500 Respiratory rate 18 /min Dr. Bhupendra Oliveira Work Phone: [facility] Work Phone: 08-03-2022 20:22-0500 SaO2% (BldA) [Mass fraction] 100 % Dr. Bhupendra Oliveira Work Phone: [facility] Work Phone: 08-03-2022 20:22-0500 Systolic blood pressure 172 mm[Hg] Dr. Bhupendra Oliveira Work Phone: [facility] Work Phone: 08-03-2022 17:22-0500 Body height 157.[address] Bhupendra Oliveira Work Phone: [facility] Work Phone: 08-03-2022 17:22-0500 Body mass index (BMI) [Ratio] 36.2 kg/m2 Dr. Bhupendra Oliveira Work Phone: [facility] Work Phone: 08-03-2022 17:22-0500 Body weight 89.[address] Bhupendra Oliveira Work Phone: [facility] Work Phone: 07-11-2022 16:00-0400 Diastolic blood pressure 66 mm[Hg] Nanda Oliveira MD Work Phone: [facility] 07-11-2022 16:00-0400 Heart rate 72 /min Nanda Oliveira MD Work Phone: [facility] 07-11-2022 16:00-0400 Respiratory rate 18 /min Nanda Oliveira MD Work Phone: [facility] 07-11-2022 16:00-0400 SaO2% (BldA) [Mass fraction] 98 % Nanda Oliveira MD Work Phone: [facility] 07-11-2022 16:00-0400 Systolic blood pressure 110 mm[Hg] Nanda Oliveira MD Work Phone: [facility] 07-04-2022 11:57-0400 Body weight 89.18 kg Nanda Oliveira MD Work Phone: [facility] 07-04-2022 11:57-0400 Diastolic blood pressure 70 mm[Hg] Nanda Oliveira MD Work Phone: [facility] 07-04-2022 11:57-0400 Heart rate 70 /min Nanda Oliveira MD Work Phone: [facility] 07-04-2022 11:57-0400 Respiratory rate 20 /min Nanda Oliveira MD Work Phone: [facility] 07-04-2022 11:57-0400 SaO2% (BldA) [Mass fraction] 98 % Nanda Oliveira MD Work Phone: [facility] 07-04-2022 11:57-0400 Systolic blood pressure 126 mm[Hg] Nanda Oliveira MD Work Phone: [facility] 06-12-2022 14:16-0400 Diastolic blood pressure 80 mm[Hg] Dr. Bhupendra Oliveira Work Phone: [facility] Work Phone: 06-12-2022 14:16-0400 Systolic blood pressure 130 mm[Hg] Dr. Bhupendra Oliveira Work Phone: [facility] Work Phone: 06-12-2022 13:32-0400 Body height 157.[address] Bhupendra Oliveira Work Phone: [facility] Work Phone: 06-12-2022 13:32-0400 Body mass index (BMI) [Ratio] 35.6 kg/m2 Dr. Bhupendra Oliveira Work Phone: [facility] Work Phone: 06-12-2022 13:32-0400 Body weight 88.[address] Bhupendra Oliveira Work Phone: [facility] Work Phone: 06-12-2022 13:32-0400 Heart rate 80 /min Dr. Bhupendra Oliveira Work Phone: [facility] Work Phone: 06-12-2022 13:32-0400 Respiratory rate 16 /min Dr. Bhupendra Oliveira Work Phone: [facility] Work Phone: 06-04-2022 11:29-0400 Diastolic blood pressure 65 mm[Hg] Katja Coles DO Work Phone: [facility] 06-04-2022 11:29-0400 Heart rate 89 /min Katja Coles DO Work Phone: [facility] 06-04-2022 11:29-0400 SaO2% (BldA) [Mass fraction] 97 % Katja Coles DO Work Phone: [facility] 06-04-2022 11:29-0400 Systolic blood pressure 105 mm[Hg] Katja Coles DO Work Phone: [facility] 05-01-2022 15:08-0400 Body weight 87.54 kg Nanda Oliveira MD Work Phone: [facility] 05-01-2022 15:08-0400 Diastolic blood pressure 76 mm[Hg] Nanda Oliveira MD Work Phone: [facility] 05-01-2022 15:08-0400 Heart rate 110 /min Nanda Oliveira MD Work Phone: [facility] 05-01-2022 15:08-0400 Respiratory rate 18 /min Nanda Oliveira MD Work Phone: [facility] 05-01-2022 15:08-0400 SaO2% (BldA) [Mass fraction] 98 % Nanda Oliveira MD Work Phone: [facility] 05-01-2022 15:08-0400 Systolic blood pressure 130 mm[Hg] Nanda Oliveira MD Work Phone: [facility] 03-29-2022 14:54-0400 Diastolic blood pressure 72 mm[Hg] Nanda Oliveira MD Work Phone: [facility] 03-29-2022 14:54-0400 Heart rate 78 /min Nanda Oliveira MD Work Phone: [facility] 03-29-2022 14:54-0400 Respiratory rate 20 /min Nanda Oliveira MD Work Phone: [facility] 03-29-2022 14:54-0400 SaO2% (BldA) [Mass fraction] 97 % Nanda Oliveira MD Work Phone: [facility] 03-29-2022 14:54-0400 Systolic blood pressure 130 mm[Hg] Nanda Oliveira MD Work Phone: [facility] 03-01-2022 15:32-0400 Diastolic blood pressure 78 mm[Hg] Nanda Oliveira MD Work Phone: [facility] 03-01-2022 15:32-0400 Heart rate 94 /min Nanda Oliveira MD Work Phone: [facility] 03-01-2022 15:32-0400 Respiratory rate 20 /min Nanda Oliveira MD Work Phone: [facility] 03-01-2022 15:32-0400 SaO2% (BldA) [Mass fraction] 97 % Nanda Oliveira MD Work Phone: [facility] 03-01-2022 15:32-0400 Systolic blood pressure 130 mm[Hg] Nanda Oliveira MD Work Phone: [facility] 02-23-2022 11:10-0400 Diastolic blood pressure 104 mm[Hg] [facility] Work Phone: 02-23-2022 11:10-0400 Heart rate 95 /min [place] Work Phone: 02-23-2022 11:10-0400 Inhaled oxygen flow rate 2 L/min Dr. Bhupendra Oliveira Work Phone: [facility] Work Phone: 02-23-2022 11:10-0400 Respiratory rate 20 /min [facility] Work Phone: 02-23-2022 11:10-0400 SaO2% (BldA) [Mass fraction] 99 % [facility] Work Phone: 02-23-2022 11:10-0400 Systolic blood pressure 178 mm[Hg] [facility] Work Phone: 02-23-2022 08:16-0400 Body height 157.48 cm [place] Work Phone: 02-23-2022 08:16-0400 Body mass index (BMI) [Ratio] 37.2 kg/m2 [facility] Work Phone: 02-23-2022 08:16-0400 Body temperature 96.4 [degF] [facility] Work Phone: 02-23-2022 08:16-0400 Body weight 92.4 kg [place] Work Phone: 12-27-2021 16:37-0400 Diastolic blood pressure 78 mm[Hg] Nanda Oliveira MD Work Phone: [facility] 12-27-2021 16:37-0400 Heart rate 116 /min Nanda Oliveira MD Work Phone: [facility] 12-27-2021 16:37-0400 Respiratory rate 22 /min Nanda Oliveira MD Work Phone: [facility] 12-27-2021 16:37-0400 SaO2% (BldA) [Mass fraction] 96 % Nanda Oliveira MD Work Phone: [facility] 12-27-2021 16:37-0400 Systolic blood pressure 128 mm[Hg] Nanda Oliveira MD Work Phone: [facility] 12-24-2021 02:29-0400 Diastolic blood pressure 78 mm[Hg] [facility] Work Phone: 12-24-2021 02:29-0400 Heart rate 74 /min [place] Work Phone: 12-24-2021 02:29-0400 Respiratory rate 18 /min [facility] Work Phone: 12-24-2021 02:29-0400 SaO2% (BldA) [Mass fraction] 95 % [facility] Work Phone: 12-24-2021 02:29-0400 Systolic blood pressure 144 mm[Hg] [facility] Work Phone: 12-23-2021 23:50-0400 Body height 157.48 cm [place] Work Phone: 12-23-2021 23:50-0400 Body mass index (BMI) [Ratio] 37 kg/m2 [facility] Work Phone: 12-23-2021 23:50-0400 Body temperature 96.5 [degF] [facility] Work Phone: 12-23-2021 23:50-0400 Body weight 91.9 kg [place] Work Phone: Encounters Encounter Date Encounter Type Care Provider Facility Start: 07-31-2025 End: 07-31-2025 Emergency department patient visit Linda Talley Facility:[facility] Start: 06-19-2025 End: 06-19-2025 Emergency department patient visit Dr. Dylon Murrieta MD Work Phone: -Emergency Department Work Phone: Start: 06-02-2025 ambulatory [facility] Facility:[facility] Start: 05-14-2025 End: 05-17-2025 Evaluation and management of inpatient [facility] Start: 05-06-2025 ambulatory [facility] Facility:[facility] Start: 04-13-2025 End: 04-13-[address] Dylon Murrieta MD Work Phone: -Laboratory Phy Office 3rd Flr Start: 04-13-2025 End: 04-13-[address] Dylon Murrieta MD -Laboratory Phy Office 3rd Flr Start: 04-13-2025 End: 04-13-2025 ambulatory [facility] Facility:[facility] Start: 04-01-2025 ambulatory [facility] Facility:[facility] Start: 03-23-2025 End: 03-23-[address] Dylon Murrieta MD Work Phone: -Nuclear Medicine [facility] Start: 03-23-2025 End: 03-23-2025 Patient encounter procedure Lizette GURROLA -Nuclear Medicine [facility] Work Phone: Start: 03-23-2025 End: 03-23-2025 ambulatory Lizette Schneider Facility:[facility] Start: 03-15-2025 ambulatory Lizette Nielson ty:[facility] Start: 01-03-2025 End: 01-03-2025 Patient encounter procedure Lizette GURROLA -[facility] Work Phone: Start: 01-03-2025 End: 01-03-2025 ambulatory Dylon [facility] Start: 12-05-2024 End: 12-05-2024 ambulatory MAEGAN Champion [facility] Start: 12-04-2024 End: 12-05-2024 Emergency department patient visit Dr. Dylon Murrieta MD Work Phone: -Emergency Department Work Phone: Start: 12-04-2024 End: 12-04-2024 Emergency department patient visit CHARLIE Sewell [facility] Start: 11-23-2024 ambulatory Dylon Chi Lit Facility:[facility] Start: 11-04-2024 End: 11-04-[address] Bart Blsa MD -[facility] Work Phone: Start: 11-04-2024 End: 11-04-2024 ambulatory Dylon Chi Lit Facility[facility] Start: 10-28-2024 End: 10-28-2024 ambulatory SELF Facility:[facility] Start: 10-28-2024 End: 10-28-2024 Patient encounter procedure Demetria Cifuentes Work Phone: Podiatry Comment on above: Onychomycosis (Prima ry Dx); Pain in toe of right foot; Pain in toe of left foot; Venous insufficiency; Peripheral arterial disease (HCC); Other diabetic neurological complication associated with type 2 diabetes mellitus (HCC) Start: 10-27-2024 End: 10-27-2024 Patient encounter procedure Lizette GURROLA -[facility] Work Phone: Start: 10-27-2024 End: 10-27-2024 ambulatory Dylon Chi Lit [facility] Start: 10-14-2024 End: 10-14-[address] Dylon Murrieta MD -Laboratory, Phy Office 3rd Flr Start: 10-14-2024 End: 10-14-2024 ambulatory Dylon Murrieta Facility:[facility] Start: 10-11-2024 ambulatory John Ho y:[facility] Start: 06-16-2024 End: 06-16-2024 Emergency department patient visit IRENE ABRAHAM [facility] Start: 05-05-2024 Telephone encounter Lizette bourgeois MD Work Phone: OB/Gynecology Start: 05-03-2024 End: 05-03-2024 Patient encounter procedure Megan Renee MD Work Phone: OB/Gynecology Comment on above: Full incontinence of feces (Primary Dx); Continuous leakage of urine; Vulvar irritation Start: 03-30-2024 Telephone encounter No Pcp [facility] Comment on above: Faxed to [employer] Start: 01-29-2024 End: 01-29-2024 Patient encounter procedure Demetria Cifuentes Work Phone: Podiatry Comment on above: Venous insufficiency (Primary Dx) Start: 01-26-2024 End: 01-26-2024 Admission to same day surgery center Dr. Dylon Murrieta Work Phone: [facility]-Surgical Day Care Start: 01-26-2024 End: 01-26-[address] Dylon Murrieta Work Phone: [facility] Work Phone: Start: 01-15-2024 End: 01-15-2024 Patient encounter procedure Demetria Cifuentes Work Phone: Podiatry Comment on above: Onychomycosis (Prima ry Dx); Pain in toe of right foot; Pain in toe of left foot; Peripheral arterial disease (HCC); Other diabetic neurological complication associated with type 2 diabetes mellitus (HCC); Venous insufficiency Start: 01-13-2024 End: 01-13-[address] Dylon Murrieta Work Phone: [facility] Work Phone: Start: 01-13-2024 End: 01-13-[address] Dylon Murrieta Work Phone: [facility]-Laboratory, Phy Office 3rd Flr Start: 11-27-2023 Non-patient / Non-visit Dr. Jonah Murrieta Work Phone: [facility] Start: 11-27-2023 End: 11-27-2023 Admission to same day surgery center Dr. Dylon Murrieta Work Phone: [facility]-Endoscopy Work Phone: Start: 11-27-2023 End: 11-27-[address] Bhupendra Oliveira Work Phone: [facility] Work Phone: Start: 11-27-2023 End: 11-27-2023 Dr. Bhupendra Oliveira Work Phone: [facility]-Endoscopy Work Phone: Start: 11-18-2023 End: 11-18-[address] Bhupendra Oliveira Work Phone: [facility] Work Phone: Start: 11-18-2023 End: 11-18-[address] Dylon Murrieta Work Phone: [facility]-Radiology, [place] Work Phone: Start: 11-18-2023 End: 11-18-2023 Dr. Bhupendra Oliveira Work Phone: [facility]-Radiology, [place] Work Phone: Start: 11-11-2023 Non-patient / Non-visit Dr. Jonah Murrieta Work Phone: [facility] Start: 11-11-2023 End: 11-11-[address] [facility] Start: 11-11-2023 End: 11-11-2023 Dr. Bhupendra Oliveira Work Phone: [facility]-Cardiovascular Services Work Phone: Start: 11-06-2023 End: 11-06-[address] Bhupendra Oliveira Work Phone: [facility] Work Phone: Start: 11-06-2023 End: 11-06-[address] Dylon Murrieta Work Phone: [facility]-Outpatient Breast Imaging Work Phone: Start: 11-06-2023 End: 11-06-2023 Dr. Bhupendra Oliveira Work Phone: [facility]-Outpatient Breast Imaging Work Phone: Start: 11-04-2023 End: 11-04-[address] Dylon Murrieta Work Phone: [facility] Work Phone: Start: 11-04-2023 End: 11-04-2023 Dr. Bhupendra Oliveira Work Phone: [facility] Work Phone: Start: 10-20-2023 End: 10-20-[address] Bhupendra Oliveira Work Phone: [facility] Work Phone: Start: 10-20-2023 End: 10-20-[address] Dylon Murrieta Work Phone: [facility]-Laboratory, y Office 3rd Flr Start: 10-20-2023 End: 10-20-2023 Dr. Bhupendra Oliveira Work Phone: [facility]-Laboratory, y Office 3rd Flr Start: 10-13-2023 End: 10-13-[address] Bhupendra Oliveira Work Phone: [facility] Work Phone: Start: 10-13-2023 End: 10-13-[address] Dylon [facility]eta [facility] Start: 10-13-2023 End: 10-13-2023 Dr. Bhupendra Oliveira [facility] Start: 09-11-2023 Telephone encounter Bhupendra Oliveira MD Work Phone: [facility] Comment on above: Medication Question Start: 09-10-2023 Telephone encounter Bhupendra Oliveira MD Work Phone: [facility] Comment on above: Results Start: 09-02-2023 End: 09-02-2023 Dr. Bhupendra Oliveira Work Phone: [facility] Work Phone: Start: 08-22-2023 ambulatory Nanda Oliveira MD Work Phone: [facility] Comment on above: Abdominal Pain Start: 08-20-2023 Dr. Bhupendra Oliveira Work Phone: [facility] In[facility] Physicians Work Phone: Start: 08-19-2023 Dr. Bhupendra Oliveira Work Phone: [facility] Start: 08-19-2023 Dr. Bhupendra Oliveira Work Phone: [facility] Work Phone: Start: 08-18-2023 Dr. Bhupendra Oliveira Work Phone: [facility] Start: 08-18-2023 Dr. Bhupendra Oliveira Work Phone: [facility] Work Phone: Start: 08-17-2023 Dr. Bhupendra Oliveira Work Phone: [facility] Start: 08-17-2023 Dr. Bhupendra Oliveira Work Phone: [facility] Work Phone: Start: 08-16-2023 End: 08-16-2023 Dr. Bhupendra Oliveira Work Phone: [facility] Work Phone: Start: 08-16-2023 Dr. Bhupendra Oliveira Work Phone: [facility] Start: 08-16-2023 Dr. Bhupendra Oliveira Work Phone: [facility] Work Phone: Start: 08-15-2023 Dr. Bhupendra Oliveira Work Phone: [facility] Work Phone: Start: 08-14-2023 Dr. Bhupendra Oliveira Work Phone: [facility] Start: 08-14-2023 Dr. Bhupendra Oliveira Work Phone: [facility] Work Phone: Start: 08-13-2023 End: 08-20-2023 Evaluation and management of inpatient Dr. Bhupendra Oliveira Work Phone: [facility] Work Phone: Start: 08-13-2023 End: 08-20-2023 Dr. Bhupendra Oliveira Work Phone: [facility]-Intensive Care Unit Work Phone: Start: 08-13-2023 End: 08-13-2023 Patient encounter procedure Nanda Oliveira MD Work Phone: [facility] Comment on above: Other chest pain (Pr imary Dx); Atrial fibrillation with RVR (HCC); FUO (fever of unknown origin); Shaking chills; Productive cough; Decreased breath sounds of both lungs; Confusion Start: 07-25-2023 Refill Nanda Oliveira MD Work Phone: [facility] Comment on above: Refill Request Start: 07-04-2023 Refill Nanda Oliveira MD Work Phone: [facility] Comment on above: Refill Request Start: 07-02-2023 End: 07-02-2023 Dr. Bhupendra Oliveira Work Phone: [facility] Work Phone: Start: 06-23-2023 Dr. Bhupendra Oliveira Work Phone: [facility] Start: 06-12-2023 Dr. Bhupendra Oliveira Work Phone: [facility] Start: 06-12-2023 End: 06-12-2023 Patient encounter procedure Demetria Cifuentes Work Phone: Podiatry Comment on above: Onychomycosis (Prima ry Dx); Pain in toe of right foot; Pain in toe of left foot; Peripheral arterial disease (HCC); Other diabetic neurological complication associated with type 2 diabetes mellitus (HCC) Start: 06-10-2023 End: 06-10-2023 Emergency department patient visit Dr. Bhupendra Oliveira Work Phone: [facility]-Emergency Department Work Phone: Start: 06-10-2023 End: 06-10-2023 Dr. Bhupendra Oliveira Work Phone: [facility]-Emergency Department Work Phone: Start: 06-10-2023 Telephone encounter Bhupendra Oliveira MD Work Phone: [facility] Comment on above: [facility] with stent place ment Start: 06-05-2023 Non-patient / Non-visit Dr. Marta Oliveira Work Phone: [facility] Work Phone: Start: 06-05-2023 Dr. Bhupendra Oliveira Work Phone: [facility] [facility] Work Phone: Start: 06-05-2023 Non-patient / Non-visit Dr. Marta Oliveira Work Phone: [facility] Start: 06-05-2023 Dr. Bhupendra Oliveira Work Phone: [facility] Start: 06-04-2023 Non-patient / Non-visit Dr. Marta Oliveira Work Phone: [facility] Work Phone: Start: 06-04-2023 Dr. Bhupendra Oliveira Work Phone: [facility] Work Phone: Start: 06-04-2023 Non-patient / Non-visit Dr. Marta Oliveira Work Phone: [facility] Work Phone: Start: 06-04-2023 Dr. Bhupendra Oliveira Work Phone: [facility] Work Phone: Start: 06-04-2023 Non-patient / Non-visit Dr. Marta Oliveira Work Phone: [facility] Start: 06-04-2023 Dr. Bhupendra Oliveira Work Phone: [facility] Start: 06-03-2023 Non-patient / Non-visit Dr. Marta Oliveira Work Phone: [facility] Work Phone: Start: 06-03-2023 Dr. Bhupendra Oliveira Work Phone: [facility] Work Phone: Start: 06-03-2023 Non-patient / Non-visit Dr. Marta Oliveira Work Phone: [facility] Start: 06-03-2023 Dr. Bhupendra Oliveira Work Phone: [facility] Start: 06-03-2023 End: 06-05-2023 Evaluation and management of inpatient Dr. Bhupendra Oliveira Work Phone: [facility] Work Phone: Start: 06-03-2023 End: 06-05-[address] Bhupendra Oliveira Work Phone: [facility] Work Phone: Start: 06-03-2023 End: 06-05-2023 Dr. Bhupendra Oliveira Work Phone: [facility] Work Phone: Start: 06-03-2023 Refill Nanda Oliveira MD Work Phone: Internal Medicine [place] Comment on above: Refill Request Start: 05-15-2023 End: 05-15-2023 [facility] Start: 05-15-2023 End: 05-15-2023 Dr. Bhupendra Oliveira Work Phone: [facility]-Emergency Department Work Phone: Start: 05-15-2023 ambulatory Nanda Oliveira MD Work Phone: [facility] [place] Comment on above: covid 19 concern Start: 05-13-2023 End: 05-13-2023 Patient encounter procedure Katie Mckeon REGISTERED RESPIRATORY THERAPIST.MACHINE CLOTH EXAMINER Work Phone: [facility] Comment on above: Type 2 diabetes juan manuel itus with hyperglycemia, with long-term current use of insulin (HCC) (Primary Dx); Coronary artery disease of [place] artery of [place] heart with stable angina pectoris (HCC) Start: 05-08-2023 End: 05-08-2023 ambulatory [facility] Work Phone: Start: 05-08-2023 End: 05-08-2023 Patient encounter procedure [facility] Work Phone: Start: 05-08-2023 End: 05-08-2023 Dr. Bhupendra Oliveira Work Phone: [facility] Work Phone: Start: 05-06-2023 Refill Nanda Oliveira MD Work Phone: [facility] Comment on above: Refill Request; Refi ll Request Start: 04-23-2023 End: 04-23-2023 [facility] Start: 04-23-2023 End: 04-23-2023 Dr. Bhupendra Oliveira [facility] Work [facility]: Start: 04-23-2023 Refill Nanda Oliveira MD Work Phone: [facility] Comment on above: Refill Request Chest Pain Start: 04-03-2023 End: 04-03-2023 Patient encounter procedure Sury Mancini APRN.MACHINE CLOTH EXAMINER Work Phone: OB/Gynecology Comment on above: Labial cyst (Primary Dx) Start: 03-24-2023 End: 03-24-2023 Patient encounter procedure Demetria Vane Work Phone: Podiatry Comment on above: Tinea pedis of left foot (Primary Dx); Dermatitis Start: 03-20-2023 Refill Nanda Oliveira MD Work Phone: [facility] Comment on above: Refill Request; Refi ll Request Start: 03-19-2023 Telephone encounter Bhupendra Oliveira MD Work Phone: [facility] Comment on above: error (Error-FOBT re sults) Start: 03-18-2023 Telephone encounter Bhupendra Oliveira MD Work Phone: [facility] Comment on above: Results Start: 03-17-2023 End: 03-17-2023 Patient encounter procedure Nanda Oliveira MD Work Phone: [facility] Comment on above: Type 2 diabetes juan manuel itus with diabetic neuropathy, with long- term current use of insulin (HCC) (Primary Dx); Fall in home, initial encounter; Injury of head, initial encounter; Essential hypertension; Petechiae; 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rder (HCC) Start: 03-17-2023 Telephone encounter Bhupendra Oliveira MD Work Phone: [facility] Comment on above: Patient Question Start: 02-28-2023 End: 02-28-2023 Subsequent hospital visit by physician Xr [facility] Work Phone: Radiology Comment on above: Fall in home, initia l encounter [W19.XXXA, Y92.009] Start: 02-07-2023 End: 02-07-[address] Bhupendra Oliveira Work Phone: [facility] Work Phone: Start: 02-07-2023 End: 02-07-[address] Bhupendra Oliveira Work Phone: [facility]-Physical Therapy Work Phone: Start: 02-06-2023 End: 02-06-2023 Subsequent hospital visit by physician Xr [facility] Work Phone: Radiology Comment on above: Bronchitis [J40] Start: 01-30-2023 End: 01-30-2023 Patient encounter procedure Demetria Cifuentes Work Phone: Podiatry Comment on above: Tinea pedis of left foot (Primary Dx); Blister of toe of left foot, initial encounter; Dermatitis Start: 01-24-2023 Refill Nanda Oliveira MD Work Phone: [facility] Comment on above: Refill Request Start: 2023 End: 2023 Emergency department patient visit Dr. Bhupendra Oliveira Work Phone: [facility] Work Phone: Start: 2023 End: 2023 Dr. [facility]upendra [facility] Start: 01-14-2023 End: 01-14-2023 Emergency department patient visit Dr. Bhupendra Oliveira [facility] Start: 01-14-2023 End: 01-14-2023 Dr. Bhupendra Oliveira [facility] Start: 01-13-2023 Telephone encounter Bhupendra Oliveira MD Work Phone: [facility] Comment on above: Results Start: 01-09-2023 End: 01-09-2023 Subsequent hospital visit by physician Xr [facility] Work Phone: Radiology Comment on above: Cellulitis of left f oot [L03.116] Start: 01-08-2023 ambulatory Nanda Oliveira MD Work Phone: Internal Medicine [facility] Start: 01-06-2023 Telephone encounter Bhupendra Oliveira MD Work Phone: [facility] Comment on above: DME request Start: 01-03-2023 End: 01-04-2023 Emergency department patient visit Dr. Bhupendra Oliveira [facility] Start: 01-03-2023 End: 01-04-2023 Dr. Bhupendra Oliveira [facility] Start: 01-03-2023 End: 01-03-2023 Patient encounter procedure Almita Youssef PA-C Work Phone: [place] [facility] Comment on above: Foot pain, left (Anna franca Dx) Start: 01-03-2023 Telephone encounter Bhupendra Oliveira MD Work Phone: [facility] Comment on above: Left foot possible i nfection; Incontinent supplies Start: 12-27-2022 Refill Nanda Oliveira MD Work Phone: [facility] Comment on above: Refill Request Start: 12-20-2022 Non-patient / Non-visit Dr. Marta Oliveira Work Phone: [facility] Start: 12-20-2022 Dr. Bhupendra Oliveira Work Phone: [facility] Start: 12-19-2022 Non-patient / Non-visit Dr. Marta Oliveira Work Phone: [facility] Start: 12-19-2022 Dr. Bhupendra Oliveira Work Phone: [facility] Start: 12-18-2022 End: 12-20-2022 Evaluation and management of inpatient Dr. Bhupendra Oliveira Work Phone: [facility] Start: 12-18-2022 End: 12-20-2022 Dr. Bhupendra Oliveira Work Phone: [facility] Start: 12-05-2022 Telephone encounter Bhupendra Oliveira MD Work Phone: [facility] Comment on above: Patient Update; Makenna ent Question Start: 11-29-[address] Bhupendra Oliveira Work Phone: [facility] Start: 11-29-[address] Dylon Murrieta MD Work Phone: [facility] Start: 11-29-2022 End: 11-29-2022 Encounter for other preprocedural examination Dr. Bhupendra Oliveira Work Phone: [facility] Start: 11-29-2022 End: 11-29-[address] Bhupendra Oliveira Work Phone: [facility] Start: 11-29-2022 End: 11-29-2022 Dr. Bhupendra Oliveira Work Phone: [facility] Start: 11-07-2022 End: 11-08-[address] ARLYN LESLIE MD Facility:[facility] Start: 11-07-2022 End: 11-08-[address] ARLYN LESLIE MD Facility:[facility] Start: 11-07-[address] ARLYN LOREDO MD Facility:[facility] Start: 11-07-2022 End: 11-07-[address] ARLYN LESLIE MD [facility] Start: 11-05-2022 End: 11-05-[address] Bhupendra Oliveira Work Phone: [facility] Start: 11-05-2022 End: 11-05-2022 Dr. Bhupendra Oliveira Work Phone: [facility] Start: 11-04-2022 Refill Nanda Oliveira MD Work Phone: [facility] Comment on above: Refill Request Start: 10-15-2022 Non-patient / Non-visit Dr. Marta Oliveira Work Phone: [facility] Start: 10-15-2022 Dr. Bhupendra Oliveira Work Phone: [facility] Start: 10-15-2022 End: 10-15-[address] Bhupendra Oliveira Work Phone: [facility] Work Phone: Start: 10-15-2022 End: 10-15-[address] [facility] Start: 10-15-2022 End: 10-15-2022 Dr. Bhupendra Oliveira Work Phone: [facility] Start: 10-09-2022 Telephone encounter Bhupendra Oliveira MD Work Phone: [facility] Comment on above: Patient Update Start: 10-04-2022 Refill Nanda Oliveira MD Work Phone: [facility] Comment on above: Refill Request Patient Question Start: 10-04-2022 End: 10-04-[address] Bhupendra Oliveira Work Phone: [facility] Start: 10-04-2022 End: 10-04-2022 Dr. Bhupendra Oliveira Work Phone: [facility] Start: 09-30-2022 Telephone encounter Bhupendra Oliveira MD Work Phone: [facility] Comment on above: Results Start: 09-27-2022 End: 09-27-2022 Preoperative state Xr [place] Work Phone: [facility] Start: 09-27-2022 End: 09-27-2022 Subsequent hospital visit by physician Xr [facility] [place] Work Phone: Radiology Comment on above: Pre-operative cleara nce [Z01.818] Start: 09-27-2022 End: 09-27-2022 Patient encounter procedure Nanda Oliveira MD Work Phone: [facility] Comment on above: Pre-operative cleara nce (Primary [...] heart failure (HCC); Coronary artery disease of [place] artery of [place] heart with stable angina pectoris ([facility]) Start: 09-27-2022 End: 09-27-2022 Preoperative state Nanda Oliveira MD Work Phone: [facility] Medicine [place] Start: 09-18-2022 Non-patient / Non-visit Dr. Marta Oliveira Work Phone: [facility] Start: 09-18-2022 End: 09-18-[address] Bhupendra Oliveira Work Phone: [facility] Work Phone: Start: 09-18-2022 End: 09-18-[address] Bhupendra Oliveira Work Phone: [facility]-Cardiovascular Services Start: 09-18-2022 End: 09-18-2022 Dr. Bhupendra Oliveira Work Phone: [facility] Start: 09-06-2022 Refill Nanda Oliveira MD Work Phone: Internal Medicine [place] Comment on above: Refill Request Start: 08-08-2022 Non-patient / Non-visit Dr. Marta Oliveira Work Phone: [facility] Start: 08-07-2022 Non-patient / Non-visit Dr. Marta Oliveira Work Phone: [facility] Start: 08-06-2022 Non-patient / Non-visit Dr. Marta Oliveira Work Phone: [facility] Start: 08-05-2022 Non-patient / Non-visit Dr. aMrta Oliveira Work Phone: [facility] Start: 08-04-2022 Non-patient / Non-visit Dr. Marta Oliveira Work Phone: [facility] Start: 08-03-2022 End: 08-03-2022 Non-patient / Non-visit Dr. Bhupendra Oliveira Work Phone: [facility] Start: 08-03-2022 Non-patient / Non-visit Dr. Marta Oliveira Work Phone: [facility] Start: 08-03-2022 End: 08-08-2022 Evaluation and management of inpatient Dr. Bhupendra Oliveira Work Phone: [facility] Start: 07-17-2022 Refill Nanda Oliveira MD Work Phone: [facility] Comment on above: Refill Request Start: 07-16-2022 Telephone encounter Jessica Puente Herson Comment on above: Patient Update Start: 07-14-2022 Telephone encounter Bhupendra Oliveira MD Work Phone: [facility] Comment on above: Results Start: 07-11-2022 End: 07-11-2022 Patient encounter procedure Nanda Oliveira MD Work Phone: [facility] Comment on above: Urinary incontinence , unspecified type (Primary Dx); Urinary frequency; Type 2 diabetes mellitus with diabetic neuropathy, with long-term current use of insulin (HCC); Incontinence of feces, unspecified fecal incontinence type; Itching; Candidal intertrigo Start: 07-04-2022 End: 07-04-2022 Patient encounter procedure Nanda Oliveira MD Work Phone: [facility] Comment on above: Type 2 diabetes juan manuel itus with diabetic neuropathy, with long- term current use of insulin (HCC) (Primary Dx); Epistaxis; Anemia, unspecified type; Essential hypertension; AF (paroxysmal atrial fibrillation) (HCC); Need for influenza vaccination; Need for COVID-19 vaccine Start: 07-01-2022 Refill Nanda Oliveira MD Work Phone: Internal Medicine [place] Comment on above: Refill Request Start: 06-21-2022 Refill Nanda Oliveira MD Work Phone: Family [facility] Comment on above: Refill Request Start: 06-12-2022 End: 06-12-[address] Bhupendra Oliveira Work Phone: [facility] Work Phone: Start: 06-12-2022 End: 06-12-[address] Bhupendra Oliveira Work Phone: [facility] Start: 06-12-2022 End: 06-12-[address] Bhupendra Oliveira Work Phone: [facility] [facility] Start: 06-11-2022 Telephone encounter Katja [...] 05-22-2022 Refill Nanda Oliveira MD Work Phone: Family [facility] Comment on above: Refill Request Start: 05-01-2022 End: 05-01-2022 Patient encounter procedure Nanda Oliveira MD Work Phone: Family [facility] Comment on above: Type 2 diabetes juan manuel itus with diabetic neuropathy, with long- term current use of insulin (HCC) (Primary Dx); Positive urine drug screen; Acute left flank pain; Tinea pedis of both feet; PARESH treated with BiPAP; PAD (peripheral artery disease) (HCC); Dusky feet; Essential hypertension Start: 04-25-2022 Refill Nanda Oliveira MD Work Phone: [facility] Comment on above: Refill Request Start: 04-05-2022 Telephone encounter Bhupendra Oliveira MD Work Phone: [facility] Comment on above: Results Start: 04-04-2022 End: 04-04-2022 Subsequent hospital visit by physician Violet [facility] Work Phone: Radiology Comment on above: Itching [L29.9] Start: 03-29-2022 End: 03-29-2022 Patient encounter procedure Nanda Oliviera MD Work Phone: [facility] Comment on above: Dusky feet (Primary Dx); Type 2 diabetes mellitus with diabetic neuropathy, with long-term current use of insulin (HCC); Urinary frequency; Essential hypertension; Epistaxis; 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 Start: 03-29-2022 Telephone encounter Bhupendra Oliveira MD Work Phone: [facility] Comment on above: Consult Start: 03-04-2022 Telephone encounter Bhupendra Oliveira MD Work Phone: [facility] Comment on above: Results Internal Referrals/r esources Start: 03-01-2022 End: 03-01-2022 Patient encounter procedure Nanda Oliveira MD Work Phone: [facility] Comment on above: Epistaxis (Primary D x); [...] 02-23-2022 End: 02-23-2022 Emergency department patient visit [facility] Start: 02-08-2022 Telephone encounter Bhupendra Oliveira MD Work Phone: [facility] Comment on above: SOB for months Start: 02-06-2022 ambulatory Nanda Oliveira MD Work Phone: Internal Medicine [place] Start: 02-01-2022 Refill Nanda Oliveira MD Work Phone: [facility] Comment on above: Refill Request Start: 01-30-2022 Telephone encounter Bhupendra Oliveira MD Work Phone: [facility] Comment on above: Release Of Medical R ecords Start: 12-27-2021 End: 12-27-2021 Patient encounter procedure Nanda Oliveira MD Work Phone: [facility] Comment on above: Fall in home, initia l encounter (Primary Dx); Closed fracture of one rib of left side, initial encounter; Abrasion of left elbow, initial encounter; Acute pain of left shoulder; Acute hip pain, left; Acute pain of left knee Start: 12-23-2021 End: 12-24-2021 Emergency department patient visit [facility]Emergency Department Start: 12-20-2021 Telephone encounter Bhupendra Oliveira MD Work Phone: [facility] Comment on above: Patient Update Start: 12-14-2020 Patient encounter procedure SELF SELF Facility:[facility] Start: 02-26-2018 Ambulatory [facility] Facility :[facility] Start: 12-18-2017 End: 12-18-2017 Ambulatory [facility] Facility:[facility] Start: 12-16-2017 End: 12-16-2017 Ambulatory [facility] Facility:[facility] Start: 11-11-2017 End: 01-03-2020 Patient encounter status Demetria Bryantbenjamin Work Phone: [facility] Procedures Date Procedure Procedure Detail Performing [...] Result Comment: URINALYSIS Performed By: #### [id number] ####[facility],[address] [place] [address] Start: 04-13-2025 Vitamin D, 25-hydroxy measurement Dr. [...] Dr. Bart Blas MD Comment on above: [id number] w/2.25 x 18 mm Resolute Camille x RX SU, PTCA alone to in-stent restenosis D1 06/04/23 Start: 06-03-2023 Plain chest X-ray Dr. Bhupendra Oliveira Work Phone: Start: 06-03-2023 CT of chest and abdomen Dr. Bhupendra Oliveira Work Phone: Start: 05-13-2023 Hemoglobin A1c/Hemoglobin.total in Blood Katie Podlogjuanito REGISTERED RESPIRATORY THERAPIST.MACHINE CLOTH EXAMINER Work Phone: Start: 05-08-2023 MRI of lower [...] Nanda Oliveira MD Work Phone: Start: 07-04-2022 PFIZER-BIONTECH COVID-19 BIVALENT BOOSTER VACCINE, AGE 12+ [...] artery disease S/P coronary artery stent placement Nanda Oliveira MD Work Phone: Start: 11-29-2016 Colonoscopy [...] Oliveira Work Phone: Viral antigen assay Dr. Seevn Oliveira Work Phone: Dr. Bhupendra Oliveira Work Phone: Dr. Bhupendra Oliveira Work Phone: Dr. Bhupendra Oliveira Work Phone: Plan of Treatment Date Care Activity Detail Author Start: 10-02-2026 Urine microalbumin profile [facility] Start: 06-25-2025 Glaucoma screening Dilated Retinal Exam [facility] Start: 06-19-2025 [facility] Start: 02-24-2025 End: 02-24-2025 Patient encounter procedure 02/24/2025 3:30 PM EDT Office Visit Podiatry [address] [place] [address] Demetria Cifuentes [address] [address] 4 month follow up nail care Podiatry Comment on above: 4 month follow up nail care Start: 12-04-2024 [facility] Start: 12-04-2024 [facility] Start: 12-04-2024 [facility] Start: 09-22-2024 Advance Directive Discussion Advance Directive Discussion [facility] Start: 09-09-2024 Annual PCP Team Chronic Disease Visit Annual PCP Team Chronic Disease Visit [facility] Start: 09-09-2024 BP Controlled (<130/80) BP Controlled (<130/80) [facility] Start: 09-09-2024 Creatinine measurement Serum Creatinine [facility] Start: 08-13-2024 Annual PCP Team Chronic Disease Visit Annual PCP Team Chronic Disease Visit [facility] Start: 08-13-2024 BP Controlled (<130/80) BP Controlled (<130/80) [facility] Start: 06-23-2024 Glaucoma screening Dilated Retinal Exam [facility] Start: 06-23-2024 Hepatitis C antibody, confirmatory test Dilated Retinal Exam [facility] Start: 06-13-2024 Annual PCP Team Chronic Disease Visit Annual PCP Team Chronic Disease Visit [facility] Start: 06-13-2024 BP Controlled (<130/80) BP Controlled (<130/80) [facility] Start: 06-13-2024 Covid-19 Vaccine ( season) Covid-19 Vaccine () [facility] Comment on above: Postponed from 05/23/2023 (Declined at t his time) Start: 05-23-2024 Covid-19 Vaccine ( season) Covid-19 Vaccine ( season) [facility] Start: 05-23-2024 Covid-19 Vaccine ( season) Covid-19 Vaccine ( season) [facility] Start: 05-23-2024 Influenza vaccination Influenza Vaccine (#1) [facility] Start: 05-20-2024 BP Controlled (<130/80) BP Controlled (<130/80) [facility] Start: 05-13-2024 3 comp foot exam completed DIABETIC FOOT EXAM [facility] Start: 05-13-2024 ANNUAL PCP TEAM CHRONIC DISEASE VISIT ANNUAL PCP TEAM CHRONIC DISEASE VISIT [facility] Start: 05-13-2024 BP CONTROLLED (<130/80) BP CONTROLLED (<130/80) [facility] Start: 05-13-2024 Diabetic foot examination Diabetic Foot Exam [facility] Start: 04-03-2024 BP CONTROLLED (<130/80) BP CONTROLLED (<130/80) [facility] Start: 03-17-2024 ANNUAL PCP TEAM CHRONIC DISEASE VISIT ANNUAL PCP TEAM CHRONIC DISEASE VISIT [facility] Start: 03-17-2024 BP CONTROLLED (<130/80) BP CONTROLLED (<130/80) [facility] Start: 03-17-2024 Complete blood count Hemoglobin/Hematocrit [facility] Start: 03-17-2024 FECAL OCCULT BLOOD FECAL OCCULT BLOOD [facility] Start: 03-17-2024 HEMOGLOBIN/HEMATOCRIT HEMOGLOBIN/HEMATOCRIT [facility] Start: 03-17-2024 Hepatitis B screening URINE ALBUMIN:CREATININE RATIO [facility] Start: 03-11-2024 Covid-19 Vaccine () Covid-19 Vaccine () [facility] Start: 02-07-2024 HEMOGLOBIN/HEMATOCRIT HEMOGLOBIN/HEMATOCRIT [facility] Start: 02-07-2024 SERUM CREATININE SERUM CREATININE [facility] Start: 02-07-2024 SHINGRIX VACCINE (2 of 3) SHINGRIX VACCINE (2 of 3) [facility] Comment on above: Postponed from 03/11/2017 (Declined at t his time) Start: 01-29-2024 End: 01-29-2024 Patient encounter procedure 01/29/2024 4:00 PM EDT Office Visit Podiatry [address] [place] [address] Demetria Cifuentes [address] [place] [address] 2 wk f/u ulcer R stern Podiatry Comment on above: 2 wk f/u ulcer R stern Start: 01-26-2024 X-ray of lumbosacral spine L/S Spine Min 4 Views [facility] Start: 01-26-2024 XR Spine Lumbar and Sacrum GE 4 Views [facility] Start: 01-26-2024 Patient discharge [facility] Start: 01-10-2024 ANNUAL PCP TEAM CHRONIC DISEASE VISIT ANNUAL PCP TEAM CHRONIC DISEASE VISIT [facility] Start: 01-10-2024 BP CONTROLLED (<130/80) BP CONTROLLED (<130/80) [facility] Start: 01-10-2024 HEMOGLOBIN/HEMATOCRIT HEMOGLOBIN/HEMATOCRIT [facility] Start: 01-06-2024 Shingrix Vaccine (3 of 3) Shingrix Vaccine (3 of 3) [facility] Start: 11-27-2023 Ercp remove calculi/debris biliary/pancreas duct ERCP REMOVE DUCT CALCULI [facility] Start: 11-27-2023 Ercp remove foreign body/stent biliary/panc duct ERCP REMOVE FORGN BODY DUCT [facility] Start: 11-27-2023 Ercp w/sphincterotomy/papillotomy ENDO CHOLANGIOPANCREATOGRAPH [facility] Start: 11-27-2023 Endoscopic retrograde cholangiopancreatography [facility] Start: 11-27-2023 RF Guidance for endoscopy of Biliary ducts and Pancreatic duct-- W contrast retrograde [facility] Start: 11-27-2023 Patient discharge [facility] Start: 11-13-2023 Hemoglobin A1c measurement HbA1C [facility] Start: 11-13-2023 Hemoglobin A1c/Hemoglobin.total in Blood HBA1C [facility] Start: 09-27-2023 ANNUAL PCP TEAM CHRONIC DISEASE VISIT ANNUAL PCP TEAM CHRONIC DISEASE VISIT [facility] Start: 09-27-2023 HEMOGLOBIN/HEMATOCRIT HEMOGLOBIN/HEMATOCRIT [facility] Start: 09-27-2023 Hepatitis B surface antibody level LDL CHOLESTEROL [facility] Start: 09-27-2023 SERUM CREATININE SERUM CREATININE [facility] Start: 09-22-2023 Advance Directive Discussion Advance Directive Discussion [facility] Start: 08-25-2023 [facility] Start: 08-24-2023 [facility] Start: 08-23-2023 [facility] Start: 08-22-2023 [facility] Start: 08-21-2023 [facility] Start: 08-20-2023 Patient discharge [facility] Start: 08-19-2023 [facility] Start: 08-19-2023 [facility] Start: 08-18-2023 Referral to occupational therapist [facility] Start: 08-18-2023 Referral to service [facility] Start: 08-17-2023 Inhalation therapy procedure [facility] Start: 08-17-2023 [facility] Start: 08-15-2023 Referral to service [facility] Start: 08-15-2023 Consultation [facility] Start: 08-14-2023 Thyroid stimulating hormone measurement [facility] Start: 08-14-2023 [facility] Start: 08-14-2023 Referral to gastroenterology service [facility] Start: 08-13-2023 Following clinical pathway protocol [facility] Start: 08-13-2023 Application of intermittent pneumatic compression device [facility] Start: 08-13-2023 Troponin I measurement [facility] Start: 08-13-2023 Documentation procedure [facility] Start: 08-13-2023 Oxygen therapy [facility] Start: 08-13-2023 Care regimes management [facility] Start: 08-13-2023 Notification of physician [facility] Start: 08-13-2023 Incentive spirometry [facility] Start: 08-13-2023 Assessment of risk of venous thromboembolism [facility] Start: 08-13-2023 Insertion of catheter into peripheral vein [facility] Start: 08-13-2023 Measuring intake and output [facility] Start: 08-13-2023 Providing care according to standard [facility] Start: 08-13-2023 Verification routine [facility] Start: 08-13-2023 End: 08-13-2023 [facility] Start: 08-13-2023 Admission procedure [facility] Start: 08-13-2023 Hospital admission, emergency, from emergency room, medical nature [facility] Start: 08-13-2023 End: 08-13-2023 [facility] Start: 08-13-2023 End: 10-13-2023 Comprehensive metabolic 2000 panel - Serum or Plasma COMP METABOLIC PANEL Lab Routine Type 2 diabetes mellitus with hyperglycemia, with long-term current use of insulin (HCC) Expected: 08/13/2023, Expires: 10/13/2023 [facility] Work Phone: Comment on above: Expected: 08/13/2023, Expires: 4 Start: 08-13-2023 End: 10-13-2023 Hemoglobin A1c in Blood HGB A1C Lab Routine Type 2 diabetes mellitus with hyperglycemia, with long-term current use of insulin (HCC) Expected: 08/13/2023, Expires: 10/13/2023 [facility] Work Phone: Comment on above: Expected: 08/13/2023, Expires: 4 Start: 07-11-2023 ANNUAL PCP TEAM CHRONIC DISEASE VISIT ANNUAL PCP TEAM CHRONIC DISEASE VISIT [facility] Start: 07-11-2023 BP CONTROLLED (<130/80) BP CONTROLLED (<130/80) [facility] Start: 07-04-2023 ANNUAL PCP TEAM CHRONIC DISEASE VISIT ANNUAL PCP TEAM CHRONIC DISEASE VISIT [facility] Start: 07-04-2023 BP CONTROLLED (<130/80) BP CONTROLLED (<130/80) [facility] Start: 07-04-2023 HEMOGLOBIN/HEMATOCRIT HEMOGLOBIN/HEMATOCRIT [facility] Start: 07-04-2023 SERUM CREATININE SERUM CREATININE [facility] Start: 06-23-2023 Patient referral [facility] Work Phone: Start: 06-10-2023 End: 06-10-2023 [facility] Start: 06-05-2023 Referral to service [facility] Start: 06-05-2023 Patient discharge [facility] Start: 06-05-2023 Electrocardiographic procedure [facility] Start: 06-04-2023 BP CONTROLLED (<130/80) BP CONTROLLED (<130/80) [facility] Start: 06-04-2023 Cardiac monitoring [facility] Start: 06-04-2023 Cardiac rehabilitation - phase 1 [facility] Start: 06-04-2023 Cardiac rehabilitation - phase 2 [facility] Start: 06-04-2023 End: 06-04-2023 Notification of physician [facility] Start: 06-04-2023 Patient discharge [facility] Start: 06-04-2023 Systemic arterial pressure monitoring [facility] Start: 06-04-2023 Vascular disease risk assessment [facility] Start: 06-04-2023 Vital signs measurements [facility] Start: 06-04-2023 End: 06-04-2023 [facility] Start: 06-04-2023 Patient education [facility] Start: 06-04-2023 Provision of activity privileges [facility] Start: 06-04-2023 Pulse taking [facility] Start: 06-04-2023 End: 06-04-2023 Taking patient vital signs [facility] Start: 06-04-2023 Wound care [facility] Start: 06-03-2023 Catheterization of vein [facility] Start: 06-03-2023 Medication not administered [facility] Start: 06-03-2023 Notification of physician [facility] Start: 06-03-2023 [facility] Start: 06-03-2023 Ambulation without limitation [facility] Start: 06-03-2023 Assessment of risk of venous thromboembolism [facility] Start: 06-03-2023 Cardiac catheterization [facility] Start: 06-03-2023 Care regimes management [facility] Start: 06-03-2023 Catheterization of vein [facility] Start: 06-03-2023 Insertion of catheter into peripheral vein [facility] Start: 06-03-2023 Measuring intake and output [facility] Start: 06-03-2023 Notification of physician [facility] Start: 06-03-2023 Oxygen therapy [facility] Start: 06-03-2023 Providing care according to standard [facility] Start: 06-03-2023 Referral to restaurant host/hostess [facility] Start: 06-03-2023 [facility] Start: 06-03-2023 Following clinical pathway protocol [facility] Start: 06-03-2023 Admission procedure [facility] Start: 05-23-2023 Influenza vaccination [facility] Start: 05-15-2023 [facility] Start: 05-09-2023 Hemoglobin A1c/Hemoglobin.total in Blood HBA1C [facility] Start: 05-01-2023 ANNUAL PCP TEAM CHRONIC DISEASE VISIT ANNUAL PCP TEAM CHRONIC DISEASE VISIT [facility] Start: 04-23-2023 [facility] Start: 04-04-2023 HEMOGLOBIN/HEMATOCRIT HEMOGLOBIN/HEMATOCRIT [facility] Start: 03-29-2023 ANNUAL PCP TEAM CHRONIC DISEASE VISIT ANNUAL PCP TEAM CHRONIC DISEASE VISIT [facility] Start: 03-27-2023 Hemoglobin A1c/Hemoglobin.total in Blood HBA1C [facility] Start: 03-18-2023 COLORECTAL CANCER SCREENING COLORECTAL CANCER SCREENING [facility] Start: 03-01-2023 3 comp foot exam completed DIABETIC FOOT EXAM [facility] Start: 03-01-2023 ANNUAL PCP TEAM CHRONIC DISEASE VISIT ANNUAL PCP TEAM CHRONIC DISEASE VISIT [facility] Start: 03-01-2023 HEMOGLOBIN/HEMATOCRIT HEMOGLOBIN/HEMATOCRIT [facility] Start: 03-01-2023 Hepatitis B screening URINE ALBUMIN:CREATININE RATIO [facility] Start: 03-01-2023 Hepatitis B surface antibody level LDL CHOLESTEROL [facility] Start: 03-01-2023 SERUM CREATININE SERUM CREATININE [facility] Start: 2023 [facility] Start: 01-14-2023 End: 01-14-2023 [facility] Start: 01-03-2023 End: 01-03-2023 Blood culture [facility] Start: 01-02-2023 Hemoglobin A1c/Hemoglobin.total in Blood HBA1C [facility] Start: 12-27-2022 ANNUAL PCP TEAM CHRONIC DISEASE VISIT ANNUAL PCP TEAM CHRONIC DISEASE VISIT [facility] Start: 12-27-2022 BP CONTROLLED (<130/80) BP CONTROLLED (<130/80) [facility] Start: 12-20-2022 Patient discharge [facility] Start: 12-20-2022 Oxygen therapy [facility] Start: 12-20-2022 Care regimes management [facility] Start: 12-20-2022 Notification of physician [facility] Start: 12-20-2022 [facility] Start: 12-19-2022 Referral to service [facility] Start: 12-19-2022 Referral to occupational therapist [facility] Start: 12-19-2022 Consultation [facility] Start: 12-19-2022 Consultation [facility] Start: 12-18-2022 Following clinical pathway protocol [facility] Start: 12-18-2022 Referral to service [facility] Start: 12-18-2022 Admission procedure [facility] Start: 12-18-2022 Application of ice collar, cap or bag [facility] Start: 12-18-2022 Exercises [facility] Start: 12-18-2022 Incentive spirometry [facility] Start: 12-18-2022 Neurovascular assessment [facility] Start: 12-18-2022 Patient education [facility] Start: 12-18-2022 Provision of activity privileges [facility] Start: 12-18-2022 Recommendation to continue with treatment [facility] Start: 12-18-2022 Vital signs measurements [facility] Start: 12-18-2022 Wound care [facility] Start: 12-18-2022 [facility] Start: 12-18-2022 Patient referral to dietitian [facility] Start: 11-23-2022 ANNUAL PCP TEAM CHRONIC DISEASE VISIT ANNUAL PCP TEAM CHRONIC DISEASE VISIT [facility] Start: 11-13-2022 HEMOGLOBIN/HEMATOCRIT HEMOGLOBIN/HEMATOCRIT [facility] Start: 11-13-2022 SERUM CREATININE SERUM CREATININE [facility] Start: 11-04-2022 COVID-19 VACCINE (5 - Pfizer series) COVID-19 VACCINE (5 - Pfizer series) [facility] Start: 09-22-2022 ADVANCE DIRECTIVE DISCUSSION ADVANCE DIRECTIVE DISCUSSION [facility] Start: 08-24-2022 3 comp foot exam completed DIABETIC FOOT EXAM [facility] Start: 08-08-2022 Patient discharge [facility] Start: 08-05-2022 Provision of overbed trapeze [facility] Start: 08-05-2022 Ambulation therapy management [facility] Start: 08-05-2022 Application of device [facility] Start: 08-05-2022 Assessment of risk of venous thromboembolism [facility] Start: 08-05-2022 Catheterization of vein [facility] Start: 08-05-2022 Exercises [facility] Start: 08-05-2022 Following clinical pathway protocol [facility] Start: 08-05-2022 Incentive spirometry [facility] Start: 08-05-2022 Introduction of urinary catheter [facility] Start: 08-05-2022 Measuring intake and output [facility] Start: 08-05-2022 Neurovascular assessment [facility] Start: 08-05-2022 Patient education [facility] Start: 08-05-2022 Procedure discontinued [facility] Start: 08-05-2022 Provision of activity privileges [facility] Start: 08-05-2022 Referral to occupational therapist [facility] Start: 08-05-2022 Referral to service [facility] Start: 08-05-2022 Vital signs measurements [facility] Start: 08-05-2022 Wound care [facility] Start: 08-05-2022 End: 08-05-2022 [facility] Start: 08-05-2022 Oxygen therapy [facility] Start: 08-05-2022 Referral to service [facility] Start: 08-04-2022 Measuring intake and output [facility] Start: 08-04-2022 Measuring intake and output [facility] Start: 08-04-2022 Measuring intake and output [facility] Start: 08-03-2022 Following clinical pathway protocol [facility] Start: 08-03-2022 Incentive spirometry [facility] Start: 08-03-2022 Application of ice collar, cap or bag [facility] Start: 08-03-2022 Assessment of risk of venous thromboembolism [facility] Start: 08-03-2022 Bedrest [facility] Start: 08-03-2022 Care regimes management [facility] Start: 08-03-2022 Consultation [facility] Start: 08-03-2022 Documentation procedure [facility] Start: 08-03-2022 Insertion of catheter into peripheral vein [facility] Start: 08-03-2022 Neurovascular assessment [facility] Start: 08-03-2022 Providing care according to standard [facility] Start: 08-03-2022 Referral to service [facility] Start: 08-03-2022 Skin care [facility] Start: 08-03-2022 [facility] Start: 08-03-2022 Measuring intake and output [facility] Start: 08-03-2022 Electrocardiographic procedure [facility] Work Phone: Start: 08-03-2022 Troponin I measurement [facility] Work Phone: Start: 08-03-2022 Verification routine [facility] Work Phone: Start: 08-03-2022 Admission procedure [facility] Start: 07-04-2022 End: 09-03-2022 CBC W Auto Differential panel - Blood [facility] Work Phone: Comment on above: Expected: 07/04/2022, Expires: 2 Start: 07-04-2022 End: 09-03-2022 Comprehensive metabolic 2000 panel - Serum or Plasma [facility] Work Phone: Comment on above: Expected: 07/04/2022, Expires: 2 Start: 07-04-2022 End: 09-03-2022 Hemoglobin A1c in Blood [facility] Work Phone: Comment on above: Expected: 07/04/2022, Expires: 2 Start: 06-01-2022 Hemoglobin A1c/Hemoglobin.total in Blood HBA1C [facility] Start: 05-25-2022 BP CONTROLLED (<130/80) BP CONTROLLED (<130/80) [facility] Start: 05-23-2022 Influenza vaccination INFLUENZA (#1) [facility] Start: 05-14-2022 FECAL OCCULT BLOOD FECAL OCCULT BLOOD [facility] Start: 05-14-2022 Screening for malignant neoplasm of colon Fecal Occult Blood [facility] Start: 05-13-2022 Hemoglobin A1c/Hemoglobin.total in Blood HBA1C [facility] Start: 04-02-2022 Hepatitis C antibody, confirmatory test DILATED RETINAL EXAM [facility] Start: 04-01-2022 End: 06-01-2022 CBC W Auto Differential panel - Blood CBC + DIFF Lab Routine Itching Expected: 04/01/2022, Expires: 06/01/2022 [facility] Work Phone: Comment on above: Expected: 04/01/2022, Expires: 2 Start: 04-01-2022 End: 06-01-2022 Ferritin [Mass/volume] in Serum or Plasma FERRITIN BLD Lab Routine Itching Expected: 04/01/2022, Expires: 06/01/2022 [facility] Work Phone: Comment on above: Expected: 04/01/2022, Expires: 2 Start: 04-01-2022 End: 06-01-2022 Iron and Iron binding capacity panel - Serum or Plasma IRON + TIBC Lab Routine Itching Expected: 04/01/2022, Expires: 06/01/2022 [facility] Work Phone: Comment on above: Expected: 04/01/2022, Expires: 2 Start: 04-01-2022 End: 06-01-2022 Thyrotropin [Units/volume] in Serum or Plasma TSH BLD Lab Routine Itching Expected: 04/01/2022, Expires: 06/01/2022 [facility] Work Phone: Comment on above: Expected: 04/01/2022, Expires: 2 Start: 03-29-2022 End: 05-29-2022 PAIN PANEL, UR QUANT [facility] Work Phone: Comment on above: Expected: 03/29/2022, Expires: 2 Start: 03-13-2022 COVID-19 VACCINE (4 - Booster for Pfizer series) COVID-19 VACCINE (4 - Booster for Pfizer series) [facility] Start: 03-04-2022 End: 05-04-2022 CBC W Auto Differential panel - Blood CBC + DIFF Lab Routine Anemia, unspecified type Expected: 03/04/2022, Expires: 05/04/2022 [facility] Work Phone: Comment on above: Expected: 03/04/2022, Expires: 2 Start: 03-04-2022 End: 05-04-2022 Ferritin [Mass/volume] in Serum or Plasma FERRITIN BLD Lab Routine Anemia, unspecified type Expected: 03/04/2022, Expires: 05/04/2022 [facility] Work Phone: Comment on above: Expected: 03/04/2022, Expires: 2 Start: 03-04-2022 End: 05-04-2022 Iron and Iron binding capacity panel - Serum or Plasma IRON + TIBC Lab Routine Anemia, unspecified type Expected: 03/04/2022, Expires: 05/04/2022 [facility] Work Phone: Comment on above: Expected: 03/04/2022, Expires: 2 Start: 02-23-2022 Control nasal hemorrhage anterior simple CONTROL OF NOSEBLEED [facility] Work Phone: Start: 02-08-2022 Hepatitis B screening URINE ALBUMIN:CREATININE RATIO [facility] Start: 01-08-2022 COVID-19 VACCINE (4 - Booster for Pfizer series) COVID-19 VACCINE (4 - Booster for Pfizer series) [facility] Start: 12-28-2021 Mammography [facility] Start: 12-28-2021 Screening for malignant neoplasm of breast Mammogram Screening [facility] Start: 12-07-2021 Hepatitis B surface antibody level LDL CHOLESTEROL [facility] Start: 11-29-2021 Colonoscopy COLONOSCOPY [facility] Start: 11-29-2021 COLORECTAL CANCER SCREENING COLORECTAL CANCER SCREENING [facility] Start: 11-29-2021 Screening for malignant neoplasm of colon [facility] Start: 09-22-2021 ADVANCE DIRECTIVE DISCUSSION ADVANCE DIRECTIVE DISCUSSION [facility] Start: 03-11-2017 SHINGRIX VACCINE (2 of 3) SHINGRIX VACCINE (2 of 3) [facility] Start: 2015 Hepatitis B Vaccine (1 of 3 - Risk 3-dose series) Hepatitis B Vaccine (1 of 3 - Risk 3-dose series) [facility] Start: 2015 RSV Vaccine (1 - 1-dose 60+ series) RSV Vaccine (1 - 1-dose 60+ series) [facility] Start: 2005 Screening for malignant neoplasm of lung Lung Cancer Screening [facility] Start: 01-17-2000 COLOGUARD (FIT-DNA) COLOGUARD (FIT-DNA) [facility] Start: 01-17-[address] COLONOGRAPHY [facility] Start: 01-17-2000 Screening for malignant neoplasm of colon [facility] Start: 01-17-2000 SIGMOIDOSCOPY SIGMOIDOSCOPY [facility] 24 Hour ECG [facility] Work Phone: Alanine aminotransfe rase [Enzymatic activity/volume] in Serum or Plasma [facility] Albumin [Mass/volume ] in Serum or Plasma [facility] Alkaline phosphatase [Enzymatic activity/volume] in Serum or Plasma [facility] Anion gap measurement [facility] Aspartate aminotrans ferase [Enzymatic activity/volume] in Serum or Plasma [facility] Bilirubin, total measurement [facility] BUN/Creatinine ratio [facility] Calcium [Mass/volume ] in Serum or Plasma [facility] Carbon dioxide, tota l [Moles/volume] in Serum or Plasma [facility] Celiac disease screen [facility] Chloride [Moles/volu me] in Serum or Plasma [facility] Clostridioides diffi cile DNA [Presence] in Unspecified specimen by SANDRA with probe detection [facility] Creatinine [Moles/vo lume] in Serum or Plasma [facility] End: 05-31-2023 Ct abdomen & pelvis w/o contrast material CT FLANK WO IVCON Radiology DAVEY Acute left flank pain 1 Occurrences starting 05/01/2022 until 05/31/2023 [facility] Work Phone: Comment on above: 1 Occurrences starting 05/01/2022 until 05/31/2023 End: 09-27-2023 ECG COMPLETE ECG COMPLETE ECG Routine AF (paroxysmal atrial fibrillation) (HCC) Pre-operative clearance 1 Occurrences starting 09/27/2022 until 09/27/2023 [facility] Work Phone: Comment on above: 1 Occurrences starting 09/27/2022 until 09/27/2023 ECG COMPLETE ECG COMPLETE ECG 09/27/2022 12:11 PM EST [facility] ECG COMPLETE [facility] Work Phone: Comment on above: Ordered: 08/13/2023 Elastase.pancreatic [Presence] in Stool [facility] Glucose [Mass/volume ] in Serum or Plasma [facility] Hematocrit [Volume F raction] of Blood [facility] Hemoglobin [Mass/vol ume] in Blood [facility] Hemoglobin A1c/Hemoglobin.total in Blood HEMOGLOBIN A1C (POC) Lab Routine Type 2 diabetes mellitus with hyperglycemia, with long-term current use of insulin ([facility]) Ordered: 05/13/2023 [facility] Work Phone: Comment on above: Ordered: 05/13/2023 Hemoglobin.gastroint estinal.l ower [Presence] in Stool by Immunoassay FECAL OCCULT BLOOD TEST Lab Routine Melanotic stools Ordered: 03/01/2022 [facility] Work Phone: Comment on above: Ordered: 03/01/2022 Hepatic function panel [facility] Lactic acid measurement [facility] Leukocytes [#/volume ] in Blood [facility] Magnesium [Mass/volu me] in Serum or Plasma [facility] End: 02-07-2024 RABIA SCREENING RABIA SCREENING Radiology Routine Encounter for screening mammogram for breast cancer 1 Occurrences starting 01/08/2023 until 02/07/2024 [facility] Work Phone: Comment on above: 1 Occurrences starting 01/08/2023 until 02/07/2024 Mean corpuscular hem oglobin concentration determination [facility] Mean corpuscular hem oglobin determination [facility] Measurement of renal function [facility] End: 01-26-2023 Mri any jt upper extremity w/o contrast matrl MRI SHOULDER WO IVCON LT Radiology DAVEY Fall in home, initial encounter Acute pain of left shoulder 1 Occurrences starting 12/27/2021 until 01/26/2023 [facility] Work Phone: Comment on above: 1 Occurrences starting 12/27/2021 until 01/26/2023 Neutrophil count [facility] Neutrophil percent differential count [facility] Nucleic acid assay [facility] Ova OR parasites identification [facility] PAIN PANEL, UR QUANT PAIN PANEL, UR QUANT Lab Routine 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 03/29/2022 4:06 PM EDT [facility] Work Phone: Patient Education [facility] Work Phone: Patient referral [facility] Work Phone: Platelets [#/volume] in Blood [facility] Potassium [Moles/vol ume] in Serum or Plasma [facility] Protein measurement [facility] End: 03-01-2023 PVR ANK PRESS NIRU [facility] LAB PVR ANK PRESS [facility] Vascular Lab STAT Type 2 diabetes mellitus with diabetic neuropathy, with long-term current use of insulin (HCC) Dusky feet 1 Occurrences starting 03/01/2022 until 03/01/2023 [facility] Work Phone: Comment on above: 1 Occurrences starting 03/01/2022 until 03/01/2023 End: 05-01-2023 Radiologic exam chest 2 views XR CHEST 2V FRONTAL/LAT Radiology Routine Itching 1 Occurrences starting 04/01/2022 until 05/01/2023 [facility] Work Phone: Comment on above: 1 Occurrences starting 04/01/2022 until 05/01/2023 Radionuclide gastric emptying study [facility] Red blood cell count [facility] Red cell distributio n width determination [facility] Respiratory pathogen s DNA and RNA 12b panel - Unspecified specimen by SANDRA with probe detection [facility] End: 03-08-2023 Screening mammography bi 2-view breast inc cad RABIA SCREENING Radiology Routine Encounter for screening mammogram for breast cancer 1 Occurrences starting 02/06/2022 until 03/08/2023 [facility] Work Phone: Comment on above: 1 Occurrences starting 02/06/2022 until 03/08/2023 Sodium [Moles/volume ] in Serum or Plasma [facility] SPECIMEN VALIDITY, URINE SPECIME N VALIDITY, URINE Lab Routine 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 03/29/2022 4:06 PM EDT [facility] Work Phone: Total protein measurement [facility] Troponin I measurement [facility] Work Phone: UA DIP, URINE (POC) UA DIP, URIN E (POC) Lab Routine Acute left flank pain Ordered: 05/01/2022 [facility] Work Phone: Comment on above: Ordered: 05/01/2022 Urea nitrogen [Mass/ volume] in Serum or Plasma [facility] Immunizations Immunization Date Immunization Notes Care Provider Leighton nance 06-13-2023 influenza (HD-IIV4) vaccine, age 65+ yr, high dose, quadrivalent, PF (FLUZONE HIGH-DOSE) Nanda Oliveira MD Work Phone: [facility] 06-13-2023 influenza virus vaccine, unspecified formulation No Pcp REGISTERED RESPIRATORY THERAPIST [facility] 07-04-2022 COVID-19 booster vaccine, age 12+ yr, bivalent (PFIZER-BIONTECH) Nanda Oliveira MD Work Phone: [facility] 07-04-2022 Influenza, high dose seasonal Dr. Dylon Murrieta MD Work Phone: [facility] 07-04-2022 influenza, high dose seasonal, preservative-free Dr. Bhupendra Oliveira Work Phone: [facility] 07-04-2022 influenza, high-dose , quadrivalent vaccine (FLUZONE HIGH DOSE QUADRIVALENT) Nanda Oliveira MD Work Phone: [facility] 07-04-2022 influenza virus vaccine, unspecified formulation Nanda Oliveira MD Work Phone: [facility] 11-13-2021 COVID-19 original vaccine, age 12+ yr, monovalent (PFIZER-BIONTECH - LINCOLN TOP) Nanda Oliveira MD Work Phone: [facility] Work Phone: 11-13-2021 COVID-19 vaccine, ag e 12+ yr (PFIZER-BIONTECH - PURPLE TOP) Nanda Oliveira MD Work Phone: [facility] 08-24-2021 influenza, high-dose , quadrivalent vaccine (FLUZONE HIGH DOSE QUADRIVALENT) Nanda Oliveira MD Work Phone: [facility] 02-08-2021 pneumococcal polysaccharide vaccine, 23 valent Nanda Oliveira MD Work Phone: [facility] 12-21-2020 Covid (Pfizer) [facility] 11-30-2020 Covid (Pfizer) [facility] 07-29-2020 influenza, injectabl e, quadrivalent, preservative free Dr. Bhupendra Oliveira Work Phone: [facility] 07-29-2020 influenza, seasonal, injectable [facility] 07-29-2020 influenza, seasonal, injectable, preservative free Nanda Oliveira MD Work Phone: [facility] Work Phone: 08-05-2019 influenza, injectabl e, quadrivalent, contains preservative Nanda Oliveira MD Work Phone: [facility] 07-26-2019 Influenza virus vaccine [facility] 07-26-2019 influenza, seasonal, injectable, preservative free Nanda Oliveira MD Work Phone: [facility] Work Phone: 06-22-2018 influenza, injectabl e, quadrivalent, preservative free Dr. Bhupendra Oliveira Work Phone: [facility] 06-22-2018 influenza, seasonal, injectable [facility] 06-22-2018 influenza, seasonal, injectable, preservative free Nanda Oliveira MD Work Phone: [facility] Work Phone: 06-03-2018 influenza, injectabl e, quadrivalent, contains preservative Nanda Oliveira MD Work Phone: [facility] 06-23-2017 Influenza virus vaccine [facility] 06-23-2017 influenza, seasonal, injectable, preservative free Nanda Oliveira MD Work Phone: [facility] Work Phone: 06-19-2017 influenza, injectabl e, quadrivalent, contains preservative Nanda Oliveira MD Work Phone: [facility] 01-14-2017 zoster vaccine, live Shiraz darci Oliveira MD Work Phone: [facility] Work Phone: 10-02-2016 tetanus toxoid, redu elza diphtheria toxoid, and acellular pertussis vaccine, adsorbed Nanda Oliveira MD Work Phone: [facility] 08-28-2016 influenza, injectabl e, quadrivalent, preservative free Dr. Bhupendra Oliveira Work Phone: [facility] 08-28-2016 influenza, seasonal, injectable [facility] 08-28-2016 influenza, seasonal, injectable, preservative free Nanda Oliveira MD Work Phone: [facility] Work Phone: 07-16-2015 influenza nasal, unspecified formulation Nanda Oliveira MD Work Phone: [facility] Work Phone: 07-16-2015 influenza virus vaccine, whole virus Nanda Oliveira MD Work Phone: [facility] Work Phone: 07-16-2015 influenza, seasonal, injectable Nanda Oliveira MD Work Phone: [facility] 06-21-2015 influenza, injectabl e, quadrivalent, preservative free Dr. Bhupendra Oliveira Work Phone: [facility] 06-21-2015 influenza, seasonal, injectable [facility] 06-21-2015 influenza, seasonal, injectable, preservative free Nanda Oliveira MD Work Phone: [facility] Work Phone: 02-27-2015 pneumococcal conjuga te vaccine, 13 valchintan Oliveira MD Work Phone: [facility] Work Phone: 07-04-2014 influenza nasal, unspecified formulation Nanda Oliveira MD Work Phone: [facility] Work Phone: 07-04-2014 influenza, seasonal, injectable Nanda Oliveira MD Work Phone: [facility] 07-14-2013 Influenza virus vaccine [facility] 07-14-2013 influenza, seasonal, injectable, preservative free Nanda Oliveira MD Work Phone: [facility] Work Phone: 09-22-2011 pneumococcal polysaccharide vaccine, 23 valent Nanda Oliveira MD Work Phone: [facility] 09-22-2011 Pneumococcal Vaccine [facility] Work Phone: 09-22-2011 pneumococcal vaccine , unspecified formulation Dr. Bhupendra Oliveira Work Phone: [facility] 06-22-2010 pneumococcal polysaccharide vaccine, 23 valchintan Oliveira MD Work Phone: [facility] Work Phone: 01-06-2008 pneumococcal conjuga te vaccine, 7 valchintan Oliveira MD Work Phone: [facility] Work Phone: 01-06-2008 pneumococcal Conjuga te, unspecified formulation Nanda Oliveira MD Work Phone: [facility] Work Phone: Payers Date Payer Category Payer Self-pay [id number] 2022 Private Health Insurance 103 [id number] 2022 Medicare [facility] MEDIC[facility] DUAL COMPLETE HMO POS SNP [id number] 2022-Present [phone] [address] [place] [address] Medicare [id number] 2022 Unknown [id number] 2015 Medicaid [facility] MEDICAID [employer] ARE [facility] MEDICAID [id number] 2015-Present [phone] [address] [place] [address] Medicaid [id number] 2015 Medicaid [id number] 2015 Medicare [id number] 1955 Unknown [id number] [id number] 27 1955 Unknown [id number] 2.16.840.1.286364.3.579.2.6 27 1955 Unknown [id number] 2.16.840.1.181777.3.579.2.6 27 1955 Unknown [id number] 2.16.840.1.521658.3.579.2.5 94 1955 Unknown [id number] 2.16.840.1.426637.3.579.2.4 79 1955 Unknown [id number] 2.16.840.1.755358.3.579.2.6 51 1955 Unknown [id number] 2.16.840.1.227095.3.579.2.6 51 1955 Unknown [id number] 2.16.840.1.492320.3.579.2.6 51 Medicare [id number] Unknown [id number] 2.16.840.1.008456.3.579.2.4 62 Unknown [id number] 2.16.840.1.062845.3.579.2.4 62 Unknown [id number] 2.16.840.1.136721.3.579.2.4 62 Unknown [id number] 2.16.840.1.047659.3.579.2.4 62 Unknown [id number] 2.16.840.1.433615.3.579.2.4 62 Unknown [id number] 2.16.840.1.611631.3.579.2.4 62 Unknown [id number] 2.16.840.1.478528.3.579.2.4 62 Unknown [id number] 2.16.840.1.868255.3.579.2.4 62 Unknown [id number] 2.16.840.1.799870.3.579.2.4 62 Unknown [id number] 2.16.840.1.621452.3.579.2.4 62 Unknown [id number] 2.16.840.1.284955.3.579.2.4 62 Unknown [id number] 2.16.840.1.576122.3.579.2.4 62 Unknown [id number] 2.16.840.1.203899.3.579.2.4 62 Unknown [id number] 2.16.840.1.773426.3.579.2.4 62 Unknown [id number] 2.16.840.1.116387.3.579.2.4 62 Social History Date Type Detail Facility Start: 12-23-2021 End: 08-13-2023 Tobacco smoking status NHIS Unknown if ever smoked [facility] Start: 12-13-2020 [facility] Start: 06-05-2021 Homeless [facility] Start: 06-05-2021 Non-smoker [facility] Start: 1955 Sex Assigned At Female [facility] Start: 01-06-2017 End: 06-04-2022 Tobacco smoking status NHIS Ex-smoker [facility] Start: 1978 End: 09-22-2005 History of tobacco use Current smoker [facility] Start: 1978 End: 09-22-2005 History of tobacco use Cigarette Smoker [facility] Start: 11-23-2021 End: 10-28-2024 Alcohol intake Current non-drinker of alcohol (finding) [facility] Start: 01-06-2017 End: 06-04-2022 Tobacco Comment Father smoked in childhood. 2nd spouse smoked in home. [facility] Start: 1955 Sex Assigned At Not on file [facility] Start: 12-10-2021 End: 07-11-2022 Exposure to SARS-CoV-2 (event) Not sure [facility] Start: 01-06-2017 End: 10-28-2024 Cigarettes smoked current (pack per day) - Reported 1 [facility] Start: 01-06-2017 End: 10-28-2024 Tobacco use and exposure Smokeless tobacco non-user [facility] Work Phone: Start: 04-03-2023 End: 10-28-2024 Tobacco use panel [facility] Adult Depression Screening Assessment 0 [facility] Start: 10-28-2024 End: 01-03-2025 Tobacco smoking status NHIS Smokes tobacco daily [facility] Start: 12-05-2024 Sex Female (finding) [facility] Start: 06-19-2025 Tobacco smoking stat us [facility] Current Light tobacco smoker [facility] NEGATED: Highlighted row [facility] Medical Equipment Procedure Code Equipment Code [...] STENT,RX PLASTIC BILIARY [id number] FDA Start: 08-16-2023 [id number], [id number], [id number], [id number], [id number] Start: 12-16-2018 End: 07-25-2023 Comment on above: [...] 2 DM - Uncontrolled E11.65 Insulin: Yes [id number] FDA Start: 08-05-2022 ()[id number] FDA Start: 08-05-2022 [id number]) ()[id number] FDA Start: 08-05-2022 ([id number]) [id number] FDA Start: 12-18-2022 [id number] [facility] Start: 06-04-2023 Goals Date Patient Goal Desired Activity /State Personal health goal Personal health goal Personal health goal Functional Status Date Assessment Result Facility 08-20-2023 Functional status Ambulates;Chair [facility] Work Phone: 06-05-2023 Functional status Ambulates [facility] Work Phone: 12-20-2022 Functional status Ambulates [facility] Work Phone: 11-07-2022 Functional Status Sensory Deficits None [facility] 08-08-2022 Functional status Bedside Commode [facility] Work Phone: Mental Status Date Assessment Result Facility 12-04-2024 Cognitive function Level Of Cons ciousness Awake;Alert;Appropriate;Follow s Commands [facility] Work Phone: 01-26-2024 Cognitive function Level Of Cons ciousness Follows Commands;Drowsy [facility] Work Phone: 01-26-2024 Cognitive function Voice/Name [facility] Work Phone: 11-27-2023 Cognitive function Sedated [facility] Work Phone: 11-27-2023 Cognitive function Voice/Name [facility] Work Phone: 08-20-2023 Cognitive function Voice/Name [facility] Work Phone: 08-13-2023 Cognitive function Awake;Alert;A ppropriate;Follow s Commands [facility] Work Phone: 06-10-2023 Cognitive function Awake;Alert;A ppropriate;Follow s Commands [facility] Work Phone: 06-05-2023 Cognitive function Voice/Name [facility] Work Phone: 04-23-2023 Cognitive function Voice/Name [facility] Work Phone: 01-14-2023 Cognitive function Awake;Alert;A ppropriate;Follow s Commands [facility] Work Phone: 12-20-2022 Cognitive function Voice/Name [facility] Work Phone: 08-08-2022 Cognitive function Voice/Name [facility] Work Phone: Clinical Notes 11-21-2003 to 06-19-2025 Note Date & Type Note Facility 06-19-2025 Discharge summary [facility] 06-19-2025 Radiology Diagnostic study note [facility] Imaging Services [address] [place], [place] [address] Spine Cervical without Contras MR#: [id number] Acct: [id number] Name: TAMIA PANDA Rep #: [id number] : 1955 F 70 From: Hari Gonzales MD PCP: Dr. Dylon Murrieta MD Status: REG E R Study:Spine Cervical without Contras Date of Exam: 06/19/25 Exam# [id number] Ordering Dr: Jennifer Hodge MD PROCEDURE: SPINE [...] dislocation in the cervical spine. Reading Location: [id number] CC: Dr. Avinash Hodge MD; Dr. Dylon Murrieta MD ~ Health Equipment Servicer: Signed [facility] 06-19-2025 Radiology Diagnostic study note [facility] Imaging Services [address] [place] [address] HIP, UNI W/ Pelvis 2-3 Views MR#: [id number] Acct: [id number] Name: TAMIA PANDA Rep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 [id number] Name: TAMIA PANDA Rep #:[id number] : 1955 68 From: Jeff Lewis DO PCP: Dr. Bhupendra Oliveira MD Status :ADM IN Location: [place] [address] Subjective Subjective Patient is doing very well [...] 73.8 H, Lymph % (Auto) 8.1 L, [place] % (Auto) 10.4 H, Eos % (Auto) [...] 3 months. Charges/Coding Visit Charges Inpatient E&M: 86492 Subs Hosp L3 08/20/23 1624 <Electronically signed by Jeff Lewis DO> Cosigner Signature (if applicable): CC: ~ Signed [facility] Work Phone: 1(301) 242-413211-28-2023 Progress note Author Jeff Lewis [facility] August 19, 2023 4:14pm Note Date/Time August 19, 2023 4:14pm [facility] Medical Records Department [address] [place] [address] Progress Note - GI 08/19/23 1613 MR#: [id number] Acct: [id number] Name: TAMIA PANDA Rep #:[id number] : 1955 68 From: Jeff Lewis DO PCP: Dr. Bhupendra Oliveira MD Status :ADM IN Location: [place] [address] Subjective Subjective Patient does not have any [...] bile duct. Charges/Coding Visit Charges Inpatient E&M: 62667 Subs Hosp L3 08/19/23 1614 <Electronically signed by Jeff Friend > Cosigner Signature (if applicable): CC: ~ Signed [facility] Work Phone: 1(774) 136-284411-28-2023 Progress note Author Reyna Champagne [facility] August 19, 2023 8:42am Note Date/Time August 19, 2023 8:42am [facility] Medical Records Department [facility] [place] [address] Progress Note - Hospitalist 08/19/23 0832 MR#: [id number] Acct: [id number] Name: TAMIA PANDA Rep #:[id number] : 1955 68 From: Reyna Champagne MD PCP: Dr. Bhupendra Oliveira MD Status :ADM IN Location: [place] [address] Reason for Visit Reason for Visit: Diagnoses [...] PCI 2003 and 2002, additionally patient had CO with recent in-stentstenosis 06/04/2023 -EVB-BDG-fIGC w/2.25 x 18 mm Resolute [place] RX SU, PTCA alone to in-stent restenosis D1 06/04/23 -Restarted Plavix and Eliquis after discussing with GI today -08/19: Medications resumed #DVT ppx: Kenton Champagne MD Time spent in the patient's overall evaluation,decision-making process, review of diagnostic data, adjustment of management, discussion with other providers, nursing nursing and ancillary staff involved in patient's care documentation, 37Minutes Charges/Coding Visit Charges Inpatient E&M: 34783 Subs Hosp L2 08/19/23 0842 <Electronically signed by Reyna Champagne MD> Cosigner Signature (if applicable): CC: ~ Signed [facility] Work Phone: 1(281) 382-655011-28-2023 Progress note Author James Cohn [facility] August 19, 2023 1:16am Note Date/Time August 19, 2023 1:16am [facility] Medical Records Department [address] [place] [address] Progress Note - Hospitalist 08/19/23112 MR#: [id number] Acct: [id number] Name: TAMIA PANDA Jennifer Rep #:[id number] : 1955 68 From: James Cohn DO PCP: Dr. Bhupendra Oliveira MD Status :ADM IN Location: [place] [address] Hospitalist Note Patient began complaining of abdominal [...] Cosigner Signature (if applicable): CC: ~ Signed [facility] Work Phone: 1(796) 112-966511-27-2023 Progress note Author Jeff Joshua [facility] August 18, 2023 4:22pm Note Date/Time August 18, 2023 4:22pm [facility] Medical Records Department [address] [place] [address] Progress Note - GI 08/18/23 1619 MR#: [id number] Acct: [id number] Name: MAYURI PANDAMONTY Rodriguez Rep #:[id number] : 1955 68 From: Jeff Lweis DO PCP: Dr. Bhupendra Oliveira MD Status :ADM IN Location: [place] [address] Subjective Subjective Patient is doing well and [...] normal diet. Charges/Coding Visit Charges Inpatient E&M: 11199 Subs Hosp L3 08/18/23 1622 <Electronically signed by Jeff Friend DO> Cosigner Signature (if applicable): CC: ~ Signed [facility] Work Phone: 1(147) 165-662611-27-2023 Progress note Author Syed Montanez [facility] August 18, 2023 1:38pm Note Date/Time August 18, 2023 1:38pm [facility] Medical Records Department [address] [place] [address] Progress Note - Infect Disease 08/18/23 1336 MR#: [id number] Acct: [id number] Name: TAMIA PANDA Rep #:[id number] : 1955 68 From: Syed sotomayor MD PCP: Dr. Bhupendra Oliveira MD Status :ADM IN Location: [place] [address] Physical Exam Narrative Sleeping today, no fever, [...] Encephalopathy acute: (3) Common bile duct dilatation: 08/18/23 1338 <Electronically signed by Syed Montanez MD> Cosigner Signature (if applicable): CC: ~ Signed [facility] Work Phone: 1(238) 613-601711-27-2023 Progress note Author Reyna Champagne [facility] August 18, 2023 11:31am Note Date/Time August 18, 2023 9:43am [facility] Medical Records Department [address] [facility] [place] [address] Progress Note - Hospitalist 08/18/23 0942 MR#: [id number] Acct: [id number] Name: TAMIA PANDA Rep #:[id number] : 1955 68 From: Reyna Champagne MD PCP: Dr. Bhupendra Oliveira MD Status :ADM IN Location: [place] [address] Reason for Visit Reason for Visit: Diagnoses [...] PCI 2003 and 2002, additionally patient had CO with recent in-stentstenosis 06/04/2023 -RFL-QDD-oZIH w/2.25 x 18 mm Resolute [place] RX SU, PTCA alone to in-stent restenosis D1 06/04/23 -Restarted Plavix and Eliquis after discussing with GI today #DVT ppx: Kenton Champagne MD Time spent in the patient's overall evaluation,decision-making process, review of diagnostic data, adjustment of management, discussion with other providers, nursing nursing and ancillary staff involved in patient's care documentation, 37Minutes Charges/Coding Visit Charges Inpatient E&M: 70384 Subs Hosp L2 08/18/23 1131 <Electronically signed by Reyna Champagne MD> Cosigner Signature (if applicable): CC: ~ Signed [facility] Work Phone: [phone]) 763-663511-26-2023 Progress note Author Jeff Lewis [facility] August 17, 2023 2:53pm Note Date/Time August 17, 2023 2:53pm [facility] Medical Records Department [address] [place] [address] Progress Note - GI 08/17/23 1451 MR#: [id number] Acct: [id number] Name: TAMIA PANDA Rep #:[id number] : 1955 68 From: Jeff Lewis DO PCP: Dr. Bhupendra Oliveira MD Status :ADM IN Location: [place] [address] Subjective Subjective Patient underwent an ERCP yesterday. [...] 72.1 H, Lymph % (Auto) 11.6 L, [place] % (Auto) 10.5 H, Eos % (Auto) [...] to monitor. Charges/Coding Visit Charges Inpatient E&M: 25638 Subs Hosp L3 08/17/23 1453 <Electronically signed by Jeff Friend DO> Cosigner Signature (if applicable): CC: ~ Signed [facility] Work Phone: 1(648) 189-876611-26-2023 Progress note Author Yvon Hogan [facility] August 17, 2023 8:02am Note Date/Time August 17, 2023 7:27am [facility] Medical Records Department [address] [place] [address] Progress Note - Hospitalist 08/17/23725 MR#: [id number] Acct: [id number] Name: TAMIA PANDA Rep #:[id number] : 1955 68 From: Yvon Hogan MD PCP: Dr. Bhupendra Oliveira MD Status :ADM IN Location: [place] [address] Reason for Visit Reason for Visit: Diagnoses [...] 72.1 H, Lymph % (Auto) 11.6 L, [place] % (Auto) 10.5 H, Eos % (Auto) [...] - Requested for PT OT eval and delinquency prevention social worker to assist with discharge planning Time spent in the patient's overall evaluation,decision-making process, review of diagnostic data, adjustment of management, discussion with other providers, nursing nursing and ancillary staff involved in patient's care documentation, 40minutes Charges/Coding Visit Charges Inpatient E&M: 70830 Subs Hosp L2 08/17/23 0802 <Electronically signed by Yvon Hogan MD> Cosigner Signature (if applicable): CC: ~ Signed [facility] Work Phone: [phone]) 811-236911-25-2023 Procedure [facility] 08-16-2023 [facility]23 Progress note Author Yvon Hogan [facility] August 16, 2023 10:19am Note Date/Time August 16, 2023 8:17am [facility] Medical Records Department [address] [place] [address] [place] [address] Progress Note - Hospitalist 08/16/23 0816 MR#: [id number] Acct: [id number] Name: TAMIA PANDA Rep #:[id number] : 1955 68 From: Yvon Hogan MD PCP: Dr. Bhupendra Oliveira MD Status :ADM IN Location: [place] [address] Reason for Visit Reason for Visit: Diagnoses [...] 73.8 H, Lymph % (Auto) 10.6 L, [place] % (Auto) 9.1, Eos % (Auto) 6.0 [...] 11:31 EST Reading Location ID and State: [address] [place] [address] , Service support , Physical Exam Narrative [...] documentation, 40minutes Charges/Coding Visit Charges Inpatient E&M: 96394 Subs Hosp L2 08/16/23 1019 <Electronically signed by Yvon Hogan MD> Cosigner Signature (if applicable): CC: ~ Signed [facility] Work Phone: [phone]) 452-271611-24-2023 Consult note Author Syed Montanez [facility] August 15, 2023 2:41pm Note Date/Time August 15, 2023 2:41pm [facility] Medical Records Department [address] [place] [address] Consultation - Infectious Dx 08/15/23 1438 MR#: [id number] Acct: [id number] Name: TAMIA PANDA Rep #:[id number] : 1955 68 From: Syed sotomayor MD PCP: Dr. Bhupendra Oliveira MD Status :ADM IN Location: [place] [address] Assessment & Plan Assessment/Plan (1) Complicated urinary [...] performed and neg except as noted above. [facility] Anemia Anxiety Anxiety Arthritis Atherosclerotic heart disease of [place] coronary artery without angina pectoris Back pain [...] 70.9 H, Lymph % (Auto) 11.9 L, [place] % (Auto) 10.8 H, Eos % (Auto) [...] 11:31 EST Reading Location ID and State: [address] [place] [address] , Service support , 08/15/23 1441 <Electronically signed by Syed Montanez MD> Cosigner Signature (if applicable): CC: Dr. Bhupendra Oliveira MD; Dr. Yvon Wilson DO; Dr. Syed Montanez MD~ Signed [facility] Work Phone: 1([phone]) [phone] Progress note Author Yvon [facility] August 15, 2023 10:24am Note Date/Time August 15, 2023 7:42am [facility] Medical Records Department [address] [place] [address] Progress Note - Hospitalist 08/15/23 0738 MR#: [id number] Acct: [id number] Name: TAMIA PANDA Jennifer Rep #:[id number] : 1955 68 From: Yvon Hogan MD PCP: Dr. 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 With previous PCI in 2004 in 2002 currently on guideline directed medical [...] 50 Minutes Charges/Coding Visit Charges Inpatient E&M: 89110 Subs Hosp L3 08/15/23 1024 <Electronically signed by Yvon Hogan MD> Cosigner Signature (if applicable): CC: ~ Signed [facility] Work Phone: [phone]) 785-917711-23-2023 Consult note Author Jeff Lewis [facility] August 14, 2023 6:42pm Note Date/Time August 14, 2023 6:40pm [facility] Medical Records Department [address] [place] [address] Consultation - GI 08/14/23 1835 MR#: [id number] Acct: [id number] Name: TAMIA PANDA Rep #:[id number] : 1955 68 From: Jeff Lewis DO PCP: Dr. Bhupendra Oliveira MD Status :ADM IN Location: [place] [id number]- HPI Consult Data Date of Consult: 08/14/23 [...] Fibrillation; on Apixaban, history of CAD; s/p CO and stent (2003) and recent in-stent stenosis (06/04/2023), history of CHF, history of DVT/PE, history of cholecystectomy, history of cervical cancer, CKD; stage III, OA; with chronic back pain, chronic anemia, RLS, GERD, history of UTI and depression. She presented to [facility] ER complaining of chest pain, RUQ [...] expected to be greater than 48 hours. 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 Charges/Coding Visit Charges Inpatient E&M: 93400 Init Hosp L3 08/14/23 1842 <Electronically signed by Jeff Lewis DO> Cosigner Signature (if applicable): CC: Dr. Bhupendra Oliveira MD; Dr. Yvon Wilson DO~ Signed [facility] Work Phone: 1(832) [phone] Progress note Author Yvon Hogan [facility] August 14, 2023 9:52am Note Date/Time August 14, 2023 7:29am [facility] Medical Records Department [address] [place] [address] Progress Note - Hospitalist 08/14/23 0728 MR#: [id number] Acct: [id number] Name: TAMIA PANDA Jennifer Rep #:[id number] : 1955 68 From: Yvon Hogan MD [...] (Auto) 84.7 H, Lymph % (Auto) 4.7L, [place] % (Auto) 8.5, Eos % (Auto) 1.3, [...] Sl. Cloudy, Urine pH 5.0, Ur Specific [place] 1.015, Urine Protein 30 H, Urine Glucose [...] 73.8 H, Lymph % (Auto) 10.4 L, [place] % (Auto) 12.2 H, Eos % (Auto) [...] 50 Minutes Charges/Coding Visit Charges Inpatient E&M: 53951 Subs Hosp L3 08/14/23 0952 <Electronically signed by Yvon Hogan MD> Cosigner Signature (if applicable): CC: ~ Signed [facility] Work Phone: 1(326) 124-759711-23-2023 History and physical note Author Yvon Gaviria [facility] August 14, 2023 5:58am Note Date/Time August 13, 2023 6:56pm [facility] Medical Records Department [address] [place] [address] H&P Exam - Hospitalist 08/13/23 1852 MR#: [id number] Acct: [id number] Name: TAMIA PANDA Rep #:[id number] : 1955 68 From: Yvon Galan DO PCP: Dr. Bhupendra Oliveira MD Status :ADM IN Location: ICU ICU01-1 HPI - General General Date of Admission: 08/13/23 [...] Fibrillation; on Apixaban, history of CAD; s/p CO and stent (2003) and recent in-stent stenosis (06/04/2023), history of CHF, history of DVT/PE, history of tobacco abuse (quit 2000); with subsequent COPD, history of cholecystectomy, history of cervical cancer, CKD; stage III, OA; with chronic back pain, chronic anemia, RLS, GERD, history of UTI and depression who presentsto [facility] ER complaining of chest pain, RUQ [...] expected to be greater than 48 hours. [facility] Medical History Anemia Anxiety Anxiety Arthritis Atherosclerotic heart disease of [place] coronary artery without angina pectoris Back pain [...] Taken 06/02/23] nystatin 100,000 unit/gram topical powder ([facility]) 1 applic topical TID PRN [...] the patient's lab results. Lab results narrative: [facility] Imaging Services [address] [facility] [place] [address] Gallbladder MR#: [id number] Acct: [id number] Name: TAMIA PANDA Rep #: [id number] : 1955 F 68 From: John Chavez MD PCP: Dr. Bhupendra Oliveira MD Status: REG ER Study: Gallbladder Date of Exam: 08/13/23 Exam# [id number] Ordering Dr: Eleazar Brooks MD STUDY: ABDOMINAL [...] 17:53 EST Reading Location ID and State: [address] [place] [address] Tel , Service support , CC: Dr. Bhupendra Oliveira MD; Dr. Eleazar Brooks MD ~ Health Equipment Servicer: Signed 08/14/23 03:20 08/14/23 03:20 Labs: Laboratory Results - last 24 hr 08/13/23 15:30: WBC 9.2, RBC 3.70 L, Hgb 11.3 L, Hct 36.6 L, MCV 98.9, MCH 30.5,MCHC 30.9 L, RDW Std Deviation 54.4 H, RDW Coeff of Aubrey 15.2 H, Plt Count 206, MPV 10.8, Immature Gran % (Auto) 0.500, Neut % (Auto) 84.7 H, Lymph % (Auto) 4.7L, [place] % (Auto) 8.5, Eos % (Auto) 1.3, [...] Sl. Cloudy, Urine pH 5.0, Ur Specific [place] 1.015, Urine Protein 30 H, Urine Glucose [...] and sensitivity data. Check MRCP as per specialty foods cook recommendation. Patient's ultrasound confirms previous cholecystectomy. Avoid Tylenol to prevent further potential hepatotoxicity. Minimize PENAL OFFICER active agents in light of #2. Finally, we will consult the specialty foods cook on-call to see this patient on-rounds in [...] History of coronary artery disease; status post CO with subsequent stent (2003) plus recent in-stent [...] 55 minutes. Charges/Coding Visit Charges Inpatient E&M: 76016 Init Hosp L2 08/14/23 0558 <Electronically signed by Yvon Wilson DO> Cosigner Signature (if applicable): CC: Dr. Bhupendra Oliveira MD; Dr. Yvon Wilson DO~ Signed [facility] Work Phone: 1(790) 317-914611-22-2023 Discharge summary Author Eleazar Brooks [facility] August 13, 2023 7:11pm Note Date/Time August 13, 2023 4:34pm [facility] Medical Records Department [address] [place] [address] Emergency Department Summary 08/13/23 MR#: [id number] Acct: [id number] Name: TAMIA PANDA Rep #:[id number] : 1955 68 From: Eleazar Brooks MD PCP: Dr. Bhupendra Oliveira MD Status :REG ER Location: ED ADDENDUM by Dr. Eleazar Brooks MD on 08/13/23 at 1911 Reveals atrial fibrillation with a rate of 102. QRS duration 78 ms. Q waves T duration 306 ms. [place] is normal. There is minimal nonspecific changes [...] is limited to what has been documented. [facility] Medical History Anemia Anxiety Anxiety Arthritis Atherosclerotic heart disease of [place] coronary artery without angina pectoris Back pain [...] 84.7 H Lymph % (Auto) 4.7 L [place] % (Auto) 8.5 Eos % (Auto) 1.3 [...] Sl. Cloudy Urine pH 5.0 Ur Specific [place] 1.015 Urine Protein 30 H Urine Glucose [...] Management Discussion w/another healthcare provider: Hospitalist and Curtain Stretcher Assembler (Her friendon-call for GI was consulted in [...] coronary artery, Pulmonary hypertension, Anemia Disposition Disposition: [facility] Capacity Capacity Assessment Tool Can the patient [...] problems, contact your Primary Care Provider. Call [facility] ([phone]) or report to the closest Emergency Room. Call 911 if necessary. 08/13/231852 <Electronically signed by Eleazar Brooks MD> Cosigner Signature (if applicable): CC: Dr. Bhupendra Oliveira MD ~ Signed [facility] Work Phone: 1(195) 597-197311-22-2023 Discharge summary Author Eleazar [facility] August 13, 2023 7:11pm Note Date/Time August 13, 2023 4:34pm [facility] Medical Records Department [address] [place] [address] Emergency Department Summary 08/13/23 MR#: [id number] Acct: [id number] Name: TAMIA PANDA Rep #:[id number] : 1955 68 From: Eleazar Brooks MD PCP: Dr. Bhupendra Oliveira MD Status :REG ER Location: ED ADDENDUM by Dr. Eleazar Brooks MD on 08/13/23 at 1911 Reveals atrial fibrillation with a rate of 102. QRS duration 78 ms. Q waves T duration 306 ms. [place] is normal. There is minimal nonspecific changes [...] is limited to what has been documented. [facility] Medical History Anemia Anxiety Anxiety Arthritis Atherosclerotic heart disease of [place] coronary artery without angina pectoris Back pain [...] Taken 06/02/23] nystatin 100,000 unit/gram topical powder ([facility]) 1 applic topical TID PRN [...] 84.7 H Lymph % (Auto) 4.7 L [place] % (Auto) 8.5 Eos % (Auto) 1.3 [...] Sl. Cloudy Urine pH 5.0 Ur Specific [place] 1.015 Urine Protein 30 H Urine Glucose [...] Management Discussion w/another healthcare provider: Hospitalist and Curtain Stretcher Assembler (Her friendon-call for GI was consulted in [...] hypertension, Anemia Disposition Disposition: Acute Care [facility] Capacity Capacity Assessment Tool Can the patient [...] your Primary Care Provider. Call [facility] ([phone]) or report to the closest Emergency Room. Call 911 if necessary. 08/13/231852 <Electronically signed by Eleazar Brooks MD> Cosigner Signature (if applicable): CC: Dr. Bhupendra Oliveira MD ~ Signed [facility] Work Phone: 1(384) 606-575811-22-2023 Nurse Note* Mckenna Huber MA - 08/13/2023 2:35 PM EST Nitro given per provider VO at 1421 d/t chest pain. Mckenna Huber MA documented in this encounterMarietta Memorial Hospital11-22-2023 History of Present illness Narrative* Nanda [...] with respiratory failure AF (paroxysmal atrial fibrillation) ([facility]) Anxiety Arthritis Seeing Dr Elliott Cervical cancer ([facility]) hysterectomy CHF (congestive heart failure) ([facility]) Dr. Ramsey Chronic back pain Seeing Dr. Wallace Chronic respiratory failure with hypercapnia ([facility]) 10/06/2018 [facility], 09/09/2018: 7.38/54.7/77/32.6 on 30% O2. CKD (chronic kidney disease), stage III ([facility]) Constipation Coronary atherosclerosis of [place] coronary artery Cyst of left kidney repeat US 10/2020 DDD (degenerative disc disease), lumbar DM type 2 (diabetes mellitus, type 2) ([facility]) Dr. Lopez for podiatry DVT (deep venous thrombosis) ([facility]) Post op INA, BSO. Dysphagia Seeing Dr. Beaulieu Emphysema lung ([facility]) Essential hypertension Femur fracture, left ([facility]) 07/2022 s/p nail Functional dyspepsia Gastroparesis 2016 mild GERD without esophagitis Gout Headache History of colon polyps 11/28/2016 Hyperlipidemia Hyperuricemia Hypothyroidism Incontinence Seeing Dr. Chapman Lung nodule 02/[address] in 3 months Morbid obesity (HCC) Muscle weakness Nausea Obesity hypoventilation syndrome (HCC) on 2-3 L oxygen continuously [place] on CPAP AISHA Kirk for BiPAP and Aashish Nougeira for O2. PE (pulmonary thromboembolism) (HCC) Post [...] here while awaiting EMS for transfer to [facility] for stat work up of possible COVIDvs pneumonia, r/o CO or PE. Report given to EMS upon [...] which included preparing to see the patient, [id number] patient care, completing clinical documentation, obtaining and/or reviewing separately obtained history, performing a medically appropriate examination, counseling and educating the pat ient/family/caregiver, ordering medications, tests, or procedures, communicating with other HCPs (not separately reported), independently interpreting results (not separately reported), and communicating results to the patient/family/caregiver. Nanda Oliveira MD documented in this encounterMarietta [facility] Hospital11-03-2023 Miscellaneous Notes* Telephone Encounter - Wesley [...] Ivy De La Cruz documented in this encounterMarietta Memorial Hospital10-13-2023 Miscellaneous Notes* Telephone Encounter - [...] you. Maureen Tripp RN. documented in this encounterMarietta Memorial Hospital09-21-2023 Instructions* Patient Instructions* Demetria Cifuentes - [...] (or decreased sensation in your feet) a composite bond worker should always cut your toenails. Be Careful [...] Go to your health care provider or composite bond worker to treat these conditions. documented in this encounterMarietta Memorial Hospital09-21-2023 History of Present illness Narrative* Demetria [...] with respiratory failure AF (paroxysmal atrial fibrillation) ([facility]) Anxiety Arthritis Seeing Dr Elliott Cervical cancer ([facility]) hysterectomy CHF (congestive heart failure) ([facility]) Dr. Ramsey Chronic back pain Seeing Dr. Wallace Chronic respiratory failure with hypercapnia ([facility]) 10/06/2018 [facility], 09/09/2018: 7.38/54.7/77/32.6 on 30% O2. CKD (chronic kidney disease), stage III ([facility]) Constipation Coronary atherosclerosis of [place] coronary artery Cyst of left kidney repeat US 10/2020 DDD (degenerative disc disease), lumbar DM type 2 (diabetes mellitus, type 2) ([facility]) Dr. Lopez for podiatry DVT (deep venous thrombosis) ([facility]) Post op INA, BSO. Dysphagia Seeing Dr. Beaulieu Emphysema lung ([facility]) Essential hypertension Femur fracture, left ([facility]) 07/2022 s/p nail Functional dyspepsia Gastroparesis 2017 mild GERD without esophagitis Gout Headache History of colon polyps 11/28/2016 Hyperlipidemia Hyperuricemia Hypothyroidism Incontinence Seeing Dr. Chapman Lung nodule 02/[address] in 3 months Morbid obesity ([facility]) Muscle weakness Nausea Obesity hypoventilation syndrome ([facility]) on 2-3 L oxygen continuously [place] on CPAP [facility] for [facility] and [facility] for O2. PE (pulmonary thromboembolism) ([facility]) Post op INA/BSO. Pneumonia Pulmonary HTN ([facility]) Renal cyst repeat US 10/2020 RLS (restless [...] Dx: urinary incontinence. Size: small Blood-Glucose Meter (BrightRollTOUCH ULTRA2) monitoring kit UAD to test blood [...] Objective: Patient presents to clinic ambulating in [facility] Constitutional: Pt is a well developed 68 [...] Numbness Daniella Cunningham LPN documented in this encounterMarietta Memorial Hospital09-19-2023 Discharge summary Author Jim Huddleston [facility] June 10, 2023 6:26pm Note Date/Time June 10, 2023 2:30pm [facility] Medical Records Department [address] [place] [address] Emergency Department Summary 06/10/23 MR#: [id number] Acct: [id number] Name: TAMIA PANDA Rep #:[id number] : 1955 68 From: Jim Huddleston MD [...] or alleviating factors to her chest pain. [facility] Medical History Anemia Anxiety Anxiety Arthritis Atherosclerotic heart disease of [place] coronary artery without angina pectoris Back pain [...] (Auto) 69.7 Lymph % (Auto) 14.5 L [place] % (Auto) 9.7 Eos % (Auto) 4.7 [...] your Primary Care Provider. Call [facility] ([phone]) or report to the closest Emergency Room. Call 911 if necessary. 06/10/231825 <Electronically signed by Jim Huddleston MD> Cosigner Signature (if applicable): CC: Dr. Bhupendra Oliveira MD ~ Signed [facility] Work Phone: 1(778) 520-311009-19-2023 Miscellaneous Notes* Telephone Encounter - Katelyn Churchill Ma - 06/10/2023 3:35 PM EDT Spoke to sister and she is aware of provider message below Katelyn Churchill Ma * Telephone Encounter - Nanda Oliveira MD - 06/10/2023 11:55 AM EDT I would recommend she take them as prescribed, but she should be directing these questions to her restaurant host/hostess for clarification. Would have her call them today to get their recommendations. * Telephone Encounter - Cindi Munoz RN - 06/10/2023 11:21 AM EDT Patient reports she was d/c'd from [facility] on 06-05-23. Went in with CP/a-fib. Had [...] the xtra blood thinners she received in [facility]. Patient states she is afraid to take the blood thinners. Please advise patient on the blood thinners. Patient has appt scheduled with pcp this coming Friday. Patient plans to call [facility] today to schedule a 1 month f/u. documented in this encounterMarietta Memorial Hospital09-14-2023 Discharge summary Author Roger Yang [facility] June 05, 2023 2:32pm Note Date/Time June 05, 2023 2:32pm [facility] Medical Records Department [address] [place] [address] Discharge Summary 06/05/23 1424 MR#: [id number] Acct: [id number] Name: TAMIA PANDA Rep #:[id number] : 1955 68 From: Roger chung MD PCP: Dr. Bhupendra Oliveira MD Status :ADM NICOLE Location: [place] [address] Providers Date of Admission: 06/03/23 Primary Care Physician: Dr. Bhupendra Oliveira MD Consultations 06/03/23 15:16 Consult: Cardiology Routine Consulting Provider: Bart Blas Reason for Consult: chest pain EMERGENT Consult: [...] mg tablet 100 mg PO DAILY gout 11/20/19 furosemide 20 mg tablet 20 mg PO [...] QHS 06/03/23 nystatin 100,000 unit/gram topical powder ([facility]) 1 applic topical TID PRN SKIN06/03/23 triamcinolone [...] who presents to the emergency room at [facility] with complaints of chest pain which started this morning, shehas a history of coronary artery disease and tells this examiner that she had a stent placed in 2003 at [facility] in [place]. She follows with Dr. Ramsey's office on [...] (Auto) 72.2 H, Lymph % (Auto) 10.6 L,[place] % (Auto) 12.2 H, Eos % (Auto) [...] Provider: Bhupendra Oliveira Consulting Providers: Bart Blas; aYred Fernández Discharge Orders/Prescriptions Prescriptions: New clopidogrel 75 [...] Self Care Charges/Coding Visit Charges Inpatient E&M: 74979 Disch Hosp >30min 06/05/23 1432 <Electronically signed by Roger Yang MD> Cosigner Signature (if applicable): CC: Dr. Bhupendra Oliveira MD; Dr. Roger Yang MD~ Signed [facility] Work Phone: 1([phone]) 471-775109-14-2023 Discharge summary Author Roger Yang [facility] June 05, 2023 10:44am Note Date/Time June 05, 2023 10:40am [facility] Medical Records Department [address] [place] [address] Instructions for Home/Discharge Instructions 06/05/23 1039 MR#: [id number] Acct: [id number] Name: TAMIA PANDA Rep #:[id number] : 1955 68 From: Roger chung MD [...] MD; Dr. Bart Blas MD; Dr. Yared Fernández, DO ~ Signed [facility] Work Phone: 1([phone]) 197-139909-14-2023 Progress note Author Bart Blas [facility] June 05, 2023 9:37am Note Date/Time June 05, 2023 7:24am [facility] Medical Records Department [address] [place] [address] Progress Note - Cardiology 06/05/23 0721 MR#: [id number] Acct: [id number] Name: TAMIA PANDA Jennifer Rep #:[id number] : 1955 68 From: Bart Blas MD PCP: Dr. Bhupendra Oliveira MD Status :ADM NICOLE Location: [place] [address] Subjective Subjective Patient seen and evaluated. Appears [...] not recommend that we make any changes. 06/05/23936 <Electronically signed by Bart Blas MD> Cosigner Signature (if applicable): CC: ~ Signed [facility] Work Phone: 1(731) 677-625009-13-2023 Progress note Author Roger Yang [facility] June 04, 2023 4:26pm Note Date/Time June 04, 2023 4:16pm [facility] Medical Records Department [address] [place] [address] Progress Note - Hospitalist 06/04/23 1609 MR#: [id number] Acct: [id number] Name: TAMIA PANDA Rep #:[id number] : 1955 68 From: Roger chung MD PCP: Dr. Bhupendra Oliveira MD Status :ADM NICOLE Location: [place] [address] Subjective Subjective No issues overnight, doing well. [...] Physician: Bart Blas Performed By: Nikki Jaffe [facility] Physical Exam Narrative General: Alert, Oriented x3, [...] DVT: SCD Charges/Coding Visit Charges Inpatient E&M: 80056 Subs Hosp L2 06/04/23 1626 <Electronically signed by Roger Yang MD> Cosigner Signature (if applicable): CC: ~ Signed [facility] Work Phone: 1(459) 726-972309-13-2023 Progress note Author Bart Blas [facility] June 04, 2023 1:16pm Note Date/Time June 04, 2023 1:17pm [facility] Medical Records Department [address] [place] [address] Progress Note - Cardiology 06/04/23 1315 MR#: [id number] Acct: [id number] Name: TAMIA PANDA Rep #:[id number] : 1955 68 From: Bart Blas MD PCP: Dr. Bhupendra Oliveira MD Status :ADM NICOLE Location: [place] [address] Subjective Subjective Patient seen and evaluated. Underwent [...] Cosigner Signature (if applicable): CC: ~ Signed [facility] Work Phone: 1([phone]) 596-828109-13-2023 Evaluation note* Diagnosis Onset Date Resolution Status [...] Essential hypertension chron ic Mixed hyperlipidemia chronic [facility] Work Phone: 1(687) 957-475809-12-2023 History and physical note Author Yared Fernández [facility] June 03, 2023 9:29pm Note Date/Time June 03, 2023 9:29pm [facility] Medical Records Department [address] [place] [address] H&P Exam - Hospitalist 06/03/232116 MR#: [id number] Acct: [id number] Name: TAMIA PANDA Rep #:[id number] : 1955 68 From: Yared Fernández DO PCP: Dr. Bhupendra Oliveira MD Status :ADM NICOLE Location: [place] [address] HPI - General General Date of Admission: 06/03/23 Date of Service: 06/03/23 Chief Complaint: Chest pain HPI Narrative TAMIA PANDA, is a 68 F who presents to the emergency room at [facility] with complaints of chest pain which started this morning, she has a history of coronary artery disease and tells this examiner that she had a stent placed in 2003 at [facility] in [place]. She follows with Dr. Ramsey's office on [...] potassium replacement wasordered, labs will be monitored. [facility] Medical History Anemia Anxiety Anxiety Arthritis Atherosclerotic heart disease of [place] coronary artery without angina pectoris Back pain [...] citrate AdvReac groggy Verified 06/03/23 14:20 [From [place]] Family History Mother CAD (coronary artery disease) [...] (Auto) 71.5 H, Lymph % (Auto) 13.0 L,[place] % (Auto) 8.8, Eos % (Auto) 5.5 [...] 55 minutes Charges/Coding Visit Charges Inpatient E&M: 26609 Init Hosp L2 06/03/232128 <Electronically signed by Yared Fernández DO> Cosigner Signature (if applicable): CC: Dr. Bhupendra Oliveira MD; Dr. Yared Fernández DO~ Signed [facility] Work Phone: 1([phone]) 144-643209-12-2023 Consult note Author Bart Blas [facility] June 03, 2023 5:40pm Note Date/Time June 03, 2023 5:27pm [facility] Medical Records Department [address] [place] [address] Consultation - Cardiology 06/03/23 1720 MR#: [id number] Acct: [id number] Name: TAMIA PANDA Rep #:[id number] : 1955 68 From: Bart Blas MD PCP: Dr. Bhupendra Oliveira MD Status :ADM NICOLE Location: [place] [address] Assessment & Plan Assessment/Plan (1) Atrial fibrillation: [...] % Stenosis The ejection fraction was preserved. [facility] Medical History Anemia Anxiety Anxiety Arthritis Atherosclerotic heart disease of [place] coronary artery without angina pectoris Back pain [...] (Auto) 71.5 H, Lymph % (Auto) 13.0 L,[place] % (Auto) 8.8, Eos % (Auto) 5.5 [...] 71.5 H, Lymph % (Auto) 13.0 L, [place] % (Auto) 8.8, Eos % (Auto) 5.5 [...] Oliveira MD; Dr. Bart Blas MD~ Signed [facility] Work Phone: [phone]) 128-978809-12-2023 Discharge summary Author Maria Fernanda Moss [facility] June 03, 2023 4:26pm Note Date/Time June 03, 2023 10:06am [facility] Medical Records Department [address] [place] [address] Emergency Department Summary 06/03/23 MR#: [id number] Acct: [id number] Name: TAMIA PANDA Rep #:[id number] : 1955 68 From: Maria Fernanda Moss DO PCP: Dr. Bhupendra Oliveira MD Status :ADM NICOLE Location: [place] [address] HPI History of Present Illness Chief Complaint: [...] feels like she is completely recovered currently. [facility] Medical History Anemia Anxiety Anxiety Arthritis Atherosclerotic heart disease of [place] coronary artery without angina pectoris Back pain [...] Taken 06/02/23] nystatin 100,000 unit/gram topical powder ([facility]) 1 applic topical TID PRN SKIN06/03/23 [History [...] 71.5 H Lymph % (Auto) 13.0 L [place] % (Auto) 8.8 Eos % (Auto) 5.5 [...] Chest pain Disposition Disposition: Acute Care [facility] Discharge Date/Time: 06/03/23 14:58 What to do if you have Problems For any increased pain, shortness of breath, bleeding, nausea or vomiting, chestpain, or any unexpected problems, contact your Primary Care Provider. Call [facility] ([phone]) or report to the closest Emergency Room. Call 911 if necessary. 06/03/23 1626 <Electronically signed by Maria Fernanda Moss DO> Cosigner Signature (if applicable): CC: Dr. Bhupendra Oliveira MD ~ Signed [facility] Work Phone: [phone]) 338-568509-12-2023 Miscellaneous Notes* Telephone Encounter - Monique Montoya [...] you. Monique Montoya LPN documented in this encounterMarietta Memorial Hospital08-24-2023 Miscellaneous Notes* Telephone Encounter - Jenny Ramires RN - 05/15/2023 3:27 PM EDT Call placed to patient and provider message reviewed. Patient verbalizes understanding. Patient requests this nurse relay message to sister as she will be transportation and is being difficult. Message relayed to sister who verbalizes understanding and will transport patient to [facility] ER. Jenny Ramires RN * Telephone Encounter [...] times. No wheezing. Speaks in sentences. 8. [id number]: Compared to yesterday patient reports worse. 9. [...] nc. Protocols used: Coronavirus (COVID-19) Diagnosed or [id number] documented in this encounterMarietta Memorial Hospital08-22-2023 Instructions* Patient Instructions* Katie Mckeon APRN.LILY - 05/13/2023 1:02 PM EDT Call in two weeks with 14 day average of blood sugars- sooner if getting lows Call pace about wheelchair and let us know if they need more information for wheelchair documented in this encounterMarietta Memorial Hospital08-22-2023 History of Present illness Narrative* Katie Mckeon APRN.LILY - 05/13/2023 12:06 PM EDT 05/13/2023 Patient [...] Reports never received or heard back from [employer] for her wheelchair. Did not try to reach out to them PAST MEDICAL HISTORY Diagnosis Date Acute chronic obstructive pulmonary disease with respiratory failure AF (paroxysmal atrial fibrillation) ([facility]) Anxiety Arthritis Seeing Dr Elliott Cervical cancer ([facility]) hysterectomy CHF (congestive heart failure) ([facility]) Dr. Ramsey Chronic back pain Seeing Dr. Wallace Chronic respiratory failure with hypercapnia ([facility]) 10/06/2018 [facility], 09/09/2018: 7.38/54.7/77/32.6 on 30% O2. CKD (chronic kidney disease), stage III ([facility]) Constipation Coronary atherosclerosis of [place] coronary artery Cyst of left kidney repeat US 10/2020 DDD (degenerative disc disease), lumbar DM type 2 (diabetes mellitus, type 2) ([facility]) Dr. Lopez for podiatry DVT (deep venous thrombosis) ([facility]) Post op INA, BSO. Dysphagia Seeing Dr. Beaulieu Emphysema lung ([facility]) Essential hypertension Femur fracture, left ([facility]) 07/2022 s/p nail Functional dyspepsia Gastroparesis 2017 mild GERD without esophagitis Gout Headache History of colon polyps 11/28/2016 Hyperlipidemia Hyperuricemia Hypothyroidism Incontinence Seeing Dr. Chapman Lung nodule 02/[address] in 3 months Morbid obesity ([facility]) Muscle weakness Nausea Obesity hypoventilation syndrome ([facility]) on 2-3 L oxygen continuously [place] on CPAP [facility] for BiPAP and [facility] for O2. PE (pulmonary thromboembolism) ([facility]) Post op INA/BSO. Pneumonia Pulmonary HTN ([facility]) Renal cyst repeat US 10/2020 RLS (restless [...] getting lows 2. Coronary artery disease of [place] artery of [place] heart with stable angina pectoris (HCC) - ICD9: 414.01, 413.9, ICD10: I25.118 - follow-up with cardiology as scheduled Katie Mckeon APRN.CNP Prescription instructions reviewed with [...] which included preparing to see the patient, [id number] patient care, completing clinical documentation, obtaining and/or reviewing separately obtained history, performing a medically appropriate examination, counseling and educating the pat ient/family/caregiver, and ordering medications, tests, or procedures. documented in this encounterMarietta Memorial Hospital08-15-2023 Miscellaneous Notes* Telephone Encounter - Pat [...] you. Pat Groves LPN documented in this encounterMarietta Memorial Hospital08-07-2023 Miscellaneous Notes* Telephone Encounter - Irene [...] Recommend patient make f/u appointment with her restaurant host/hostess's office in 1-2 weeks for chest pain. * Telephone Encounter - Irene Palacios LPN - 04/24/2023 8:43 AM EDT Records placed on provider's desk for review. * Telephone Encounter - Nanda Oliveira MD - 04/24/2023 8:01 AM EDT Agree with ER evaluation. Please obtain records from [facility]. * Telephone Encounter - Cindi Munoz RN - 04/23/2023 4:39 PM EDT Patient reports having CP off/on since Friday- that never goes away completely. Today having chest pressure, with dizziness, nausea, sweating, SOB on 3LO2. Hx of 2 CO's w/stent. Hx: PE & DVT. Thinks she [...] in 2003. Think she had a mild CO a long while after that. Hx: diabetes. [...] cough. 11. : No. Protocols used: Chest Pils-QIGZT-FR documented in this encounterMarietta Memorial Hospital08-02-2023 Miscellaneous Notes* Telephone Encounter - Samantha [...] 3.040 Samantha Dent RN documented in this encounterMarietta Memorial Hospital07-13-2023 History of Present illness Narrative* Sury Mancini APRN.CNP - 04/03/2023 2:01 PM EDT Tamia Panda [...] external genitalia normal, normal Bartholin's glands, urethra, [place]'s glands, no vulvar lesions, normal appearing perineal [...] Level: 3 - Low documented in this encounterMarietta Memorial Hospital07-11-2023 Discharge summary Author James Toledo [facility] April 01, 2023 9:43am Note Date/Time April 01, 2023 9:43 am [facility] Physical Therapy [facility] [address] [place] [address] / REHABILITATION SERVICES DISCHARGE SUMMARY MR#: [id number] Acct: [id number] Name: TAMIA PANDA Rep #: [id number] : 1955 68 From: James Toledo DPT, CASSIA, CSCS Referring Dr.: Dr. Arlyn Leslie MD Status: REG RCR Insurance: [facility] HMO [facility] [employer] Patient Information Patient Information: [...] appropriate by the physician. Thank you! James Toledo DPT, OCS, CSCS Balance/Gait/Functional tests Balance/Special Test Scores Lower Extremity Functional Score: 10 TUG Test Time Seconds: 50 30 Second Chair Rise Test Seconds: 2 <Electronically signed by James Toledo DPT, CASSIA, CSCS> 04/01/23 0943 CC: Dr. Bhupendra Oliveira MD; Dr. Arlyn Leslie MD ~ EBG Signed [facility] Work Phone: 1(841) [phone] Instructions* Patient Instructions* Demetria Bryantbenjamin - 03/24/2023 3:05 PM EDT Continue with lotrisone daily documented in this encounterMarietta Memorial Hospital07-03-2023 History of Present illness Narrative* Demetria Berriosjared - 03/24/2023 2:57 PM EDT Images from [...] (H) 4.3 - 5.6 % Final Comment: [place] [employer] guidelines indicate that patients with HgbA1c in the range 5.7-6.4% are at increased risk for development of diabetes, and intervention by lifestyle modification may be beneficial. HgbA1c greater or equal to 6.5% is considered diagnostic of diabetes. PCP: Nanda Oliveira MD PAST MEDICAL HISTORY Diagnosis Date Acute chronic obstructive pulmonary disease with respiratory failure AF (paroxysmal atrial fibrillation) ([facility]) Anxiety Arthritis Seeing Dr Elliott Cervical cancer ([facility]) hysterectomy CHF (congestive heart failure) ([facility]) Dr. Ramsey Chronic back pain Seeing Dr. Wallace Chronic respiratory failure with hypercapnia ([facility]) 10/06/2018 [facility], 09/09/2018: 7.38/54.7/77/32.6 on 30% O2. CKD (chronic kidney disease), stage III ([facility]) Constipation Coronary atherosclerosis of [place] coronary artery Cyst of left kidney repeat US 10/2020 DDD (degenerative disc disease), lumbar DM type 2 (diabetes mellitus, type 2) ([facility]) Dr. Lopez for podiatry DVT (deep venous thrombosis) ([facility]) Post op INA, BSO. Dysphagia Seeing Dr. Beaulieu Emphysema lung ([facility]) Essential hypertension Femur fracture, left ([facility]) 07/2022 s/p nail Functional dyspepsia Gastroparesis 2016 mild GERD without esophagitis Gout Headache History of colon polyps 11/28/2016 Hyperlipidemia Hyperuricemia Hypothyroidism Incontinence Seeing Dr. Chapman Lung nodule 02/[address] in 3 months Morbid obesity ([facility]) Muscle weakness Nausea Obesity hypoventilation syndrome ([facility]) on 2-3 L oxygen continuously [place] on CPAP [facility] for BiPAP and [facility] for O2. PE (pulmonary thromboembolism) ([facility]) Post op INA/BSO. Pneumonia Pulmonary HTN ([facility]) Renal cyst repeat US 10/2020 RLS (restless [...] every 4 hours. flash glucose scanning reader (VastrmSTYLE KIRA 14 DAY READER) [facility] Use to check blood [...] constant burning pain tofeet. documented in this encounterMarietta [facility] Hospital06-29-2023 Miscellaneous Notes* Telephone Encounter - Trinidad [...] Not applicable Please advise. Thank you. Trinidad Garcia, RN documented in this encounterMarietta [facility] Hospital06-28-2023 Miscellaneous Notes* Telephone Encounter - Pao [...] screen for colon cancer. documented in this encounterMarietta Memorial Hospital06-27-2023 Miscellaneous Notes* Telephone Encounter - SRIRAM Centeno - 03/18/2023 12:15 PM EDT TC to patient who verbalized understanding of providers message with no questions at this time. SRIRAM Centeno * Telephone Encounter - SRIRAM Centeno - 03/18/2023 12:13 PM EDT ----- Message from Nanda Oliveira MD sent at 03/18/2023 8:08 AM EDT ----- Normal labs. No change to regimen. documented in this encounterMarietta Memorial Hospital06-26-2023 Miscellaneous Notes* Telephone Encounter - Irene Palacios LPN - 03/17/2023 4:57 PM EDT Will go ahead and forward the information to [employer] as patient requests. * Telephone Encounter - Purnima Donovan RN - 03/17/2023 4:42 PM EDT Patient calls and states that she never heard back from [employer] in regards to insurance. Patient states that usually gets DME from [employer]. Patient is unsure where [employer] is. Patient states that she was given this name from someone. Purnima Donovan RN documented in this encounterMarietta Memorial Hospital06-26-2023 Instructions* Patient Instructions* Nanda Oliveira MD - 03/17/2023 3:17 PM EDT Call in 2 weeks with updated sugar readings. Call sooner with low sugars less than 80. documented in this encounterMarietta Memorial Hospital06-26-2023 History of Present illness Narrative* Nanda [...] with respiratory failure AF (paroxysmal atrial fibrillation) ([facility]) Anxiety Arthritis Seeing Dr Elliott Cervical cancer ([facility]) hysterectomy CHF (congestive heart failure) ([facility]) Dr. Ramsey Chronic back pain Seeing Dr. Wallace Chronic respiratory failure with hypercapnia ([facility]) 10/06/2018 [facility], 09/09/2018: 7.38/54.7/77/32.6 on 30% O2. CKD (chronic kidney disease), stage III ([facility]) Constipation Coronary atherosclerosis of [place] coronary artery Cyst of left kidney repeat US 10/2020 DDD (degenerative disc disease), lumbar DM type 2 (diabetes mellitus, type 2) ([facility]) Dr. Lopez for podiatry DVT (deep venous thrombosis) ([facility]) Post op INA, BSO. Dysphagia Seeing Dr. Beaulieu Emphysema lung ([facility]) Essential hypertension Femur fracture, left ([facility]) 07/2022 s/p nail Functional dyspepsia Gastroparesis 2016 mild GERD without esophagitis Gout Headache History of colon polyps 11/28/2016 Hyperlipidemia Hyperuricemia Hypothyroidism Incontinence Seeing Dr. Chapman Lung nodule 02/[address] in 3 months Morbid obesity ([facility]) Muscle weakness Nausea Obesity hypoventilation syndrome (HCC) on 2-3 L oxygen continuously [place] on CPAP [facility] for BiPAP and [facility] for O2. PE (pulmonary thromboembolism) ([facility]) Post op INA/BSO. Pneumonia Pulmonary HTN ([facility]) Renal cyst repeat US 10/2020 RLS (restless [...] PRN for SOB for COPD DX:J96.12 lancets ([employer] LANCETS) 30 gauge misc USE TO CHECK BLOOD SUGAR 4-5 TIMES DAILY, E11.9 fluorometholone (FML LIQUID FILM) 0.1 % ophthalmic suspension 1 Drop every 4 hours. flash glucose scanning reader (FREESTYLE KIRA 14 DAY READER) [facility] Use to check blood sugars 4-5 times [...] Dx: urinary incontinence. Size: small Blood-Glucose Meter (PfenexUCH ULTRA2) monitoring kit UAD to test blood [...] Abs Lymph 1.00 - 4.00 k/uL 1.34 [place]% % 9.9 Abs [place] <0.87 k/uL 0.84 [place]% % 3.2 Abs [...] DIFF Nanda Oliveira MD documented in this encounterMarietta [facility] Hospital06-09-2023 History of Present illness Narrative* Mackenzie [...] 28, 2023 12:55 PM documented in this encounterMarietta Memorial Hospital05-11-2023 Instructions* Patient Instructions* Demetria Cifuentes - 01/30/2023 1:57 PM EDT Apply steroid/antifungal cream to rash of left foot Apply small amount of topical antibiotic to small 3 mm sore of left great toe. Secure with tubigrip F/u in 3 weeks Demetria Cifuentes DPM documented in this encounterMarietta Memorial Hospital05-11-2023 History of Present illness Narrative* Demetria [...] (H) 4.3 - 5.6 % Final Comment: [place] [employer] guidelines indicate that patients with HgbA1c in the range 5.7-6.4% are at increased risk for development of diabetes, and intervention by lifestyle modification may be beneficial. HgbA1c greater or equal to 6.5% is considered diagnostic of diabetes. PCP: Nanda Oliveira MD PAST MEDICAL HISTORY Diagnosis Date Acute chronic obstructive pulmonary disease with respiratory failure AF (paroxysmal atrial fibrillation) ([facility]) Anxiety Arthritis Seeing Dr Elliott Cervical cancer ([facility]) hysterectomy CHF (congestive heart failure) ([facility]) Dr. Ramsey Chronic back pain Seeing Dr. Wallace Chronic respiratory failure with hypercapnia ([facility]) 10/06/2018 [facility], 09/09/2018: 7.38/54.7/77/32.6 on 30% O2. CKD (chronic kidney disease), stage III ([facility]) Constipation Coronary atherosclerosis of [place] coronary artery Cyst of left kidney repeat US 10/2020 DDD (degenerative disc disease), lumbar DM type 2 (diabetes mellitus, type 2) ([facility]) Dr. Lopez for podiatry DVT (deep venous thrombosis) ([facility]) Post op INA, BSO. Dysphagia Seeing Dr. Beaulieu Emphysema lung ([facility]) Essential hypertension Femur fracture, left ([facility]) 07/2022 s/p nail Functional dyspepsia Gastroparesis 2017 mild GERD without esophagitis Gout Headache History of colon polyps 11/28/2016 Hyperlipidemia Hyperuricemia Hypothyroidism Incontinence Seeing Dr. Chapman Lung nodule 02/[address] in 3 months Morbid obesity ([facility]) Muscle weakness Nausea Obesity hypoventilation syndrome ([facility]) on 2-3 L oxygen continuously [place] on CPAP [facility] for BiPAP and [facility] for O2. PE (pulmonary thromboembolism) ([facility]) Post op INA/BSO. Pneumonia Pulmonary HTN ([facility]) Renal cyst repeat US 10/2020 RLS (restless [...] x 5/16 USE DIRECTED. TO INJECT INSULINS ascorbic acid, [...] 8 hours as needed (for nausea). lancets ([employer] LANCETS) 30 gauge misc USE TO CHECK [...] Dx: urinary incontinence. Size: small Blood-Glucose Meter (BrightRollTOUCH ULTRA2) monitoring kit UAD to test blood [...] - Follow Up, Blister documented in this encounterMarietta Memorial Hospital05-05-2023 Miscellaneous Notes* Telephone Encounter - Yessi Ramirez LPN - 01/24/2023 3:38 PM EDT Chauncey--01/09/23 Nov--02/06/23 Last refill--ferrous sulfate 11/04/22 30 with 2 refills Asa- 07/17/22 90 with 1 refill Allopurinol-07/17/22 90 with 1 refill Omeprazole--07/17/22 90 with 1 refill Last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 breath 02/14/2017 documented as of this encounter (statuses as of 04/01/2022) [facility]arrative* Problem Noted Date Resolved Date Diarrhea 06/18/2019 11/02/2020 Stage 3 chronic kidney disease 01/23/2018 0 11/02/2020 Hypercapnia 01/22/2018 11/02/2020 Pre-op testing 11/11/2017 01/03/2020 Overview: Added automatically from request for surgery [id number] Coronary disease 12/11/2011 11/02/2020 Morbid obesity 01/03/2020 Anxiety 11/21/2021 Sleep apnea 02/14/2017 COPD (chronic obstructive pulmonary disease) 04/16/2019 Constipation 11/02/2020 DM type 2 (diabetes mellitus, type 2) 02/14/2017 Shortness of breath 02/14/2017 documented as of this encounter (statuses as of 04/03/2022) [facility] Narrative* Problem Noted Date Resolved Date Diarrhea 06/18/2019 11/02/2020 Stage 3 chronic kidney disease 01/23/2018 0 11/02/2020 Hypercapnia 01/22/2018 11/02/2020 Pre-op testing 11/11/2017 01/03/2020 Overview: Added automatically from request for surgery [id number] Coronary disease 12/11/2011 11/02/2020 Morbid obesity 01/03/2020 Anxiety 11/21/2021 Sleep apnea 02/14/2017 COPD (chronic obstructive pulmonary disease) 04/16/2019 Constipation 11/02/2020 DM type 2 (diabetes mellitus, type 2) 02/14/2017 Shortness of breath 02/14/2017 documented as of this encounter (statuses as of 04/25/2022) [facility]arrative* Problem Noted Date Resolved Date Diarrhea 06/18/2019 11/02/2020 Stage 3 chronic kidney disease 01/23/2018 0 11/02/2020 Hypercapnia 01/22/2018 11/02/2020 Pre-op testing 11/11/2017 01/03/2020 Overview: Added automatically from request for surgery [id number] Coronary disease 12/11/2011 11/02/2020 Morbid obesity 01/03/2020 Anxiety 11/21/2021 Sleep apnea 02/14/2017 COPD (chronic obstructive pulmonary disease) 04/16/2019 Constipation 11/02/2020 DM type 2 (diabetes mellitus, type 2) 02/14/2017 Shortness of breath 02/14/2017 documented as of this encounter (statuses as of 05/02/2022) [facility] Narrative* Problem Noted Date Resolved Date Diarrhea 06/18/2019 11/02/2020 Stage 3 chronic kidney disease 01/23/2018 0 11/02/2020 Hypercapnia 01/22/2018 11/02/2020 Pre-op testing 11/11/2017 01/03/2020 Overview: Added automatically from request for surgery [id number] Coronary disease 12/11/2011 11/02/2020 Morbid obesity 01/03/2020 Anxiety 11/21/2021 Sleep apnea 02/14/2017 COPD (chronic obstructive pulmonary disease) 04/16/2019 Constipation 11/02/2020 DM type 2 (diabetes mellitus, type 2) 02/14/2017 Shortness of breath 02/14/2017 documented as of this encounter (statuses as of 05/05/2022) [facility]arrative* Problem Noted Date Resolved Date Diarrhea 06/18/2019 11/02/2020 Stage 3 chronic kidney disease 01/23/2018 0 11/02/2020 Hypercapnia 01/22/2018 11/02/2020 Pre-op testing 11/11/2017 01/03/2020 Overview: Added automatically from request for surgery [id number] Coronary disease 12/11/2011 11/02/2020 Morbid obesity 01/03/2020 Anxiety 11/21/2021 Sleep apnea 02/14/2017 COPD (chronic obstructive pulmonary disease) 04/16/2019 Constipation 11/02/2020 DM type 2 (diabetes mellitus, type 2) 02/14/2017 Shortness of breath 02/14/2017 documented as of this encounter (statuses as of 05/22/2022) [facility]arrative* Problem Noted Date Resolved Date Diarrhea 06/18/2019 11/02/2020 Stage 3 chronic kidney disease 01/23/2018 0 11/02/2020 Hypercapnia 01/22/2018 11/02/2020 Pre-op testing 11/11/2017 01/03/2020 Overview: Added automatically from request for surgery [id number] Coronary disease 12/11/2011 11/02/2020 Morbid obesity 01/03/2020 Anxiety 11/21/2021 Sleep apnea 02/14/2017 COPD (chronic obstructive pulmonary disease) 04/16/2019 Constipation 11/02/2020 DM type 2 (diabetes mellitus, type 2) 02/14/2017 Shortness of breath 02/14/2017 documented as of this encounter (statuses as of 06/05/2022) [facility]arrative* Problem Noted Date Resolved Date Diarrhea 06/18/2019 11/02/2020 Stage 3 chronic kidney disease 01/23/2018 0 11/02/2020 Hypercapnia 01/22/2018 11/02/2020 Pre-op testing 11/11/2017 01/03/2020 Overview: Added automatically from request for surgery [id number] Coronary disease 12/11/2011 11/02/2020 Morbid obesity 01/03/2020 Anxiety 11/21/2021 Sleep apnea 02/14/2017 COPD (chronic obstructive pulmonary disease) 04/16/2019 Constipation 11/02/2020 DM type 2 (diabetes mellitus, type 2) 02/14/2017 Shortness of breath 02/14/2017 documented as of this encounter (statuses as of 06/11/2022) [facility]arrative* Problem Noted Date Resolved Date Diarrhea 06/18/2019 11/02/2020 Stage 3 chronic kidney disease 01/23/2018 0 11/02/2020 Hypercapnia 01/22/2018 11/02/2020 Pre-op testing 11/11/2017 01/03/2020 Overview: Added automatically from request for surgery [id number] Coronary disease 12/11/2011 11/02/2020 Morbid obesity 01/03/2020 Anxiety 11/21/2021 Sleep apnea 02/14/2017 COPD (chronic obstructive pulmonary disease) 04/16/2019 Constipation 11/02/2020 DM type 2 (diabetes mellitus, type 2) 02/14/2017 Shortness of breath 02/14/2017 documented as of this encounter (statuses as of 06/12/2022) [facility]* Problem Noted Date Resolved Date Diarrhea 06/18/2019 11/02/2020 Stage 3 chronic kidney disease 01/23/2018 0 11/02/2020 Hypercapnia 01/22/2018 11/02/2020 Pre-op testing 11/11/2017 01/03/2020 Overview: Added automatically from request for surgery [id number] Coronary disease 12/11/2011 11/02/2020 Morbid obesity 01/03/2020 Anxiety 11/21/2021 Sleep apnea 02/14/2017 COPD (chronic obstructive pulmonary disease) 04/16/2019 Constipation 11/02/2020 DM type 2 (diabetes mellitus, type 2) 02/14/2017 Shortness of breath 02/14/2017 documented as of this encounter (statuses as of 06/13/2022) [facility]* Problem Noted Date Resolved Date Diarrhea 06/18/2019 11/02/2020 Stage 3 chronic kidney disease 01/23/2018 0 11/02/2020 Hypercapnia 01/22/2018 11/02/2020 Pre-op testing 11/11/2017 01/03/2020 Overview: Added automatically from request for surgery [id number] Coronary disease 12/11/2011 11/02/2020 Morbid obesity 01/03/2020 Anxiety 11/21/2021 Sleep apnea 02/14/2017 COPD (chronic obstructive pulmonary disease) 04/16/2019 Constipation 11/02/2020 DM type 2 (diabetes mellitus, type 2) 02/14/2017 Shortness of breath 02/14/2017 documented as of this encounter (statuses as of 06/21/2022) [facility]* Problem Noted Date Resolved Date Diarrhea 06/18/2019 11/02/2020 Stage 3 chronic kidney disease 01/23/2018 0 11/02/2020 Hypercapnia 01/22/2018 11/02/2020 Pre-op testing 11/11/2017 01/03/2020 Overview: Added automatically from request for surgery [id number] Coronary disease 12/11/2011 11/02/2020 Morbid obesity 01/03/2020 Anxiety 11/21/2021 Sleep apnea 02/14/2017 COPD (chronic obstructive pulmonary disease) 04/16/2019 Constipation 11/02/2020 DM type 2 (diabetes mellitus, type 2) 02/14/2017 Shortness of breath 02/14/2017 documented as of this encounter (statuses as of 06/25/2022) [facility]arrative* Problem Noted Date Resolved Date Diarrhea 06/18/2019 11/02/2020 Stage 3 chronic kidney disease 01/23/2018 0 11/02/2020 Hypercapnia 01/22/2018 11/02/2020 Pre-op testing 11/11/2017 01/03/2020 Overview: Added automatically from request for surgery [id number] Coronary disease 12/11/2011 11/02/2020 Morbid obesity 01/03/2020 Anxiety 11/21/2021 Sleep apnea 02/14/2017 COPD (chronic obstructive pulmonary disease) 04/16/2019 Constipation 11/02/2020 DM type 2 (diabetes mellitus, type 2) 02/14/2017 Shortness of breath 02/14/2017 documented as of this encounter (statuses as of 07/01/2022) [facility]arrative* Problem Noted Date Resolved Date Diarrhea 06/18/2019 11/02/2020 Stage 3 chronic kidney disease 01/23/2018 0 11/02/2020 Hypercapnia 01/22/2018 11/02/2020 Pre-op testing 11/11/2017 01/03/2020 Overview: Added automatically from request for surgery [id number] Coronary disease 12/11/2011 11/02/2020 Morbid obesity 01/03/2020 Anxiety 11/21/2021 Sleep apnea 02/14/2017 COPD (chronic obstructive pulmonary disease) 04/16/2019 Constipation 11/02/2020 DM type 2 (diabetes mellitus, type 2) 02/14/2017 Shortness of breath 02/14/2017 documented as of this encounter (statuses as of 07/04/2022) [facility]* Problem Noted Date Resolved Date Diarrhea 06/18/2019 11/02/2020 Stage 3 chronic kidney disease 01/23/2018 0 11/02/2020 Hypercapnia 01/22/2018 11/02/2020 Pre-op testing 11/11/2017 01/03/2020 Overview: Added automatically from request for surgery [id number] Coronary disease 12/11/2011 11/02/2020 Morbid obesity 01/03/2020 Anxiety 11/21/2021 Sleep apnea 02/14/2017 COPD (chronic obstructive pulmonary disease) 04/16/2019 Constipation 11/02/2020 DM type 2 (diabetes mellitus, type 2) 02/14/2017 Shortness of breath 02/14/2017 documented as of this encounter (statuses as of 07/14/2022) [facility]arrative* Problem Noted Date Resolved Date Diarrhea 06/18/2019 11/02/2020 Stage 3 chronic kidney disease 01/23/2018 0 11/02/2020 Hypercapnia 01/22/2018 11/02/2020 Pre-op testing 11/11/2017 01/03/2020 Overview: Added automatically from request for surgery [id number] Coronary disease 12/11/2011 11/02/2020 Morbid obesity 01/03/2020 Anxiety 11/21/2021 Sleep apnea 02/14/2017 COPD (chronic obstructive pulmonary disease) 04/16/2019 Constipation 11/02/2020 DM type 2 (diabetes mellitus, type 2) 02/14/2017 Shortness of breath 02/14/2017 documented as of this encounter (statuses as of 07/14/2022) [facility]arrative* Problem Noted Date Resolved Date Diarrhea 06/18/2019 11/02/2020 Stage 3 chronic kidney disease 01/23/2018 0 11/02/2020 Hypercapnia 01/22/2018 11/02/2020 Pre-op testing 11/11/2017 01/03/2020 Overview: Added automatically from request for surgery [id number] Coronary disease 12/11/2011 11/02/2020 Morbid obesity 01/03/2020 Anxiety 11/21/2021 Sleep apnea 02/14/2017 COPD (chronic obstructive pulmonary disease) 04/16/2019 Constipation 11/02/2020 DM type 2 (diabetes mellitus, type 2) 02/14/2017 Shortness of breath 02/14/2017 documented as of this encounter (statuses as of 07/16/2022) [facility]09[facility]2019 History of Past illness Narrative* Problem Noted Date Resolved Date Diarrhea 06/18/2019 11/02/2020 Stage 3 chronic kidney disease 01/23/2018 0 11/02/2020 Hypercapnia 01/22/2018 11/02/2020 Pre-op testing 11/11/2017 01/03/2020 Overview: Added automatically from request for surgery [id number] Coronary disease 12/11/2011 11/02/2020 Morbid obesity 01/03/2020 Anxiety 11/21/2021 Sleep apnea 02/14/2017 COPD (chronic obstructive pulmonary disease) 04/16/2019 Constipation 11/02/2020 DM type 2 (diabetes mellitus, type 2) 02/14/2017 Shortness of breath 02/14/2017 documented as of this encounter (statuses as of 07/17/2022) [facility]2019 History of Past illness Narrative* Problem Noted Date Resolved Date Diarrhea 06/18/2019 11/02/2020 Stage 3 chronic kidney disease 01/23/2018 0 11/02/2020 Hypercapnia 01/22/2018 11/02/2020 Pre-op testing 11/11/2017 01/03/2020 Overview: Added automatically from request for surgery [id number] Coronary disease 12/11/2011 11/02/2020 Morbid obesity 01/03/2020 Anxiety 11/21/2021 Sleep apnea 02/14/2017 COPD (chronic obstructive pulmonary disease) 04/16/2019 Constipation 11/02/2020 DM type 2 (diabetes mellitus, type 2) 02/14/2017 Shortness of breath 02/14/2017 documented as of this encounter (statuses as of 09/06/2022) [facility]2019 History of Past illness Narrative* Problem Noted Date Resolved Date Diarrhea 06/18/2019 11/02/2020 Stage 3 chronic kidney disease 01/23/2018 0 11/02/2020 Hypercapnia 01/22/2018 11/02/2020 Pre-op testing 11/11/2017 01/03/2020 Overview: Added automatically from request for surgery [id number] Coronary disease 12/11/2011 11/02/2020 Morbid obesity 01/03/2020 Anxiety 11/21/2021 Sleep apnea 02/14/2017 COPD (chronic obstructive pulmonary disease) 04/16/2019 Constipation 11/02/2020 DM type 2 (diabetes mellitus, type 2) 02/14/2017 Shortness of breath 02/14/2017 documented as of this encounter (statuses as of 09/30/2022) [facility] History of Past illness Narrative* Problem Noted Date Resolved Date Diarrhea 06/18/2019 11/02/2020 Stage 3 chronic kidney disease 01/23/2018 0 11/02/2020 Hypercapnia 01/22/2018 11/02/2020 Pre-op testing 11/11/2017 01/03/2020 Overview: Added automatically from request for surgery [id number] Coronary disease 12/11/2011 11/02/2020 Morbid obesity 01/03/2020 Anxiety 11/21/2021 Sleep apnea 02/14/2017 COPD (chronic obstructive pulmonary disease) 04/16/2019 Constipation 11/02/2020 DM type 2 (diabetes mellitus, type 2) 02/14/2017 Shortness of breath 02/14/2017 documented as of this encounter (statuses as of 09/30/2022) [facility] History of Past illness Narrative* Problem Noted Date Resolved Date Diarrhea 06/18/2019 11/02/2020 Stage 3 chronic kidney disease 01/23/2018 0 11/02/2020 Hypercapnia 01/22/2018 11/02/2020 Pre-op testing 11/11/2017 01/03/2020 Overview: Added automatically from request for surgery [id number] Coronary disease 12/11/2011 11/02/2020 Morbid obesity 01/03/2020 Anxiety 11/21/2021 Sleep apnea 02/14/2017 COPD (chronic obstructive pulmonary disease) 04/16/2019 Constipation 11/02/2020 DM type 2 (diabetes mellitus, type 2) 02/14/2017 Shortness of breath 02/14/2017 documented as of this encounter (statuses as of 10/04/2022) [facility] History of Past illness Narrative* Problem Noted Date Resolved Date Diarrhea 06/18/2019 11/02/2020 Stage 3 chronic kidney disease 01/23/2018 0 11/02/2020 Hypercapnia 01/22/2018 11/02/2020 Pre-op testing 11/11/2017 01/03/2020 Overview: Added automatically from request for surgery [id number] Coronary disease 12/11/2011 11/02/2020 Morbid obesity 01/03/2020 Anxiety 11/21/2021 Sleep apnea 02/14/2017 COPD (chronic obstructive pulmonary disease) 04/16/2019 Constipation 11/02/2020 DM type 2 (diabetes mellitus, type 2) 02/14/2017 Shortness of breath 02/14/2017 documented as of this encounter (statuses as of 10/04/2022) [facility]2019 History of Past illness Narrative* Problem Noted Date Resolved Date Diarrhea 06/18/2019 11/02/2020 Stage 3 chronic kidney disease 01/23/2018 0 11/02/2020 Hypercapnia 01/22/2018 11/02/2020 Pre-op testing 11/11/2017 01/03/2020 Overview: Added automatically from request for surgery [id number] Coronary disease 12/11/2011 11/02/2020 Morbid obesity 01/03/2020 Anxiety 11/21/2021 Sleep apnea 02/14/2017 COPD (chronic obstructive pulmonary disease) 04/16/2019 Constipation 11/02/2020 DM type 2 (diabetes mellitus, type 2) 02/14/2017 Shortness of breath 02/14/2017 documented as of this encounter (statuses as of 10/09/2022) [facility] History of Past illness Narrative* Problem Noted Date Resolved Date Diarrhea 06/18/2019 11/02/2020 Stage 3 chronic kidney disease 01/23/2018 0 11/02/2020 Hypercapnia 01/22/2018 11/02/2020 Pre-op testing 11/11/2017 01/03/2020 Overview: Added automatically from request for surgery [id number] Coronary disease 12/11/2011 11/02/2020 Morbid obesity 01/03/2020 Anxiety 11/21/2021 Sleep apnea 02/14/2017 COPD (chronic obstructive pulmonary disease) 04/16/2019 Constipation 11/02/2020 DM type 2 (diabetes mellitus, type 2) 02/14/2017 Shortness of breath 02/14/2017 documented as of this encounter (statuses as of 11/04/2022) [facility] History of Past illness Narrative* Problem Noted Date Resolved Date Diarrhea 06/18/2019 11/02/2020 Stage 3 chronic kidney disease 01/23/2018 0 11/02/2020 Hypercapnia 01/22/2018 11/02/2020 Pre-op testing 11/11/2017 01/03/2020 Overview: Added automatically from request for surgery [id number] Coronary disease 12/11/2011 11/02/2020 Morbid obesity 01/03/2020 Anxiety 11/21/2021 Sleep apnea 02/14/2017 COPD (chronic obstructive pulmonary disease) 04/16/2019 Constipation 11/02/2020 DM type 2 (diabetes mellitus, type 2) 02/14/2017 Shortness of breath 02/14/2017 documented as of this encounter (statuses as of 12/10/2022) [facility] History of Past illness Narrative* Problem Noted Date Resolved Date Diarrhea 06/18/2019 11/02/2020 Stage 3 chronic kidney disease 01/23/2018 0 11/02/2020 Hypercapnia 01/22/2018 11/02/2020 Pre-op testing 11/11/2017 01/03/2020 Overview: Added automatically from request for surgery [id number] Coronary disease 12/11/2011 11/02/2020 Morbid obesity 01/03/2020 Anxiety 11/21/2021 Sleep apnea 02/14/2017 COPD (chronic obstructive pulmonary disease) 04/16/2019 Constipation 11/02/2020 DM type 2 (diabetes mellitus, type 2) 02/14/2017 Shortness of breath 02/14/2017 documented as of this encounter (statuses as of 12/27/2022) [facility]2019 History of Past illness Narrative* Problem Noted Date Resolved Date Diarrhea 06/18/2019 11/02/2020 Stage 3 chronic kidney disease 01/23/2018 0 11/02/2020 Hypercapnia 01/22/2018 11/02/2020 Pre-op testing 11/11/2017 01/03/2020 Overview: Added automatically from request for surgery [id number] Coronary disease 12/11/2011 11/02/2020 Morbid obesity 01/03/2020 Anxiety 11/21/2021 Sleep apnea 02/14/2017 COPD (chronic obstructive pulmonary disease) 04/16/2019 Constipation 11/02/2020 DM type 2 (diabetes mellitus, type 2) 02/14/2017 Shortness of breath 02/14/2017 documented as of this encounter (statuses as of 01/04/2023) [facility] History of Past illness Narrative* Problem Noted Date Resolved Date Diarrhea 06/18/2019 11/02/2020 Stage 3 chronic kidney disease 01/23/2018 0 11/02/2020 Hypercapnia 01/22/2018 11/02/2020 Pre-op testing 11/11/2017 01/03/2020 Overview: Added automatically from request for surgery [id number] Coronary disease 12/11/2011 11/02/2020 Morbid obesity 01/03/2020 Anxiety 11/21/2021 Sleep apnea 02/14/2017 COPD (chronic obstructive pulmonary disease) 04/16/2019 Constipation 11/02/2020 DM type 2 (diabetes mellitus, type 2) 02/14/2017 Shortness of breath 02/14/2017 documented as of this encounter (statuses as of 01/13/2023) [facility] History of Past illness Narrative* Problem Noted Date Resolved Date Diarrhea 06/18/2019 11/02/2020 Stage 3 chronic kidney disease 01/23/2018 0 11/02/2020 Hypercapnia 01/22/2018 11/02/2020 Pre-op testing 11/11/2017 01/03/2020 Overview: Added automatically from request for surgery [id number] Coronary disease 12/11/2011 11/02/2020 Morbid obesity 01/03/2020 Anxiety 11/21/2021 Sleep apnea 02/14/2017 COPD (chronic obstructive pulmonary disease) 04/16/2019 Constipation 11/02/2020 DM type 2 (diabetes mellitus, type 2) 02/14/2017 Shortness of breath 02/14/2017 documented as of this encounter (statuses as of 01/13/2023) [facility] History of Past illness Narrative* Problem Noted Date Resolved Date Diarrhea 06/18/2019 11/02/2020 Stage 3 chronic kidney disease 01/23/2018 0 11/02/2020 Hypercapnia 01/22/2018 11/02/2020 Pre-op testing 11/11/2017 01/03/2020 Overview: Added automatically from request for surgery [id number] Coronary disease 12/11/2011 11/02/2020 Morbid obesity 01/03/2020 Anxiety 11/21/2021 Sleep apnea 02/14/2017 COPD (chronic obstructive pulmonary disease) 04/16/2019 Constipation 11/02/2020 DM type 2 (diabetes mellitus, type 2) 02/14/2017 Shortness of breath 02/14/2017 documented as of this encounter (statuses as of 01/14/2023) [facility] History of Past illness Narrative* Problem Noted Date Resolved Date Diarrhea 06/18/2019 11/02/2020 Stage 3 chronic kidney disease 01/23/2018 0 11/02/2020 Hypercapnia 01/22/2018 11/02/2020 Pre-op testing 11/11/2017 01/03/2020 Overview: Added automatically from request for surgery [id number] Coronary disease 12/11/2011 11/02/2020 Morbid obesity 01/03/2020 Anxiety 11/21/2021 Sleep apnea 02/14/2017 COPD (chronic obstructive pulmonary disease) 04/16/2019 Constipation 11/02/2020 DM type 2 (diabetes mellitus, type 2) 02/14/2017 Shortness of breath 02/14/2017 documented as of this encounter (statuses as of 2023) [facility]2019 History of Past illness Narrative* Problem Noted Date Resolved Date Diarrhea 06/18/2019 11/02/2020 Stage 3 chronic kidney disease 01/23/2018 0 11/02/2020 Hypercapnia 01/22/2018 11/02/2020 Pre-op testing 11/11/2017 01/03/2020 Overview: Added automatically from request for surgery [id number] Coronary disease 12/11/2011 11/02/2020 Morbid obesity 01/03/2020 Anxiety 11/21/2021 Sleep apnea 02/14/2017 COPD (chronic obstructive pulmonary disease) 04/16/2019 Constipation 11/02/2020 DM type 2 (diabetes mellitus, type 2) 02/14/2017 Shortness of breath 02/14/2017 documented as of this encounter (statuses as of 01/25/2023) [facility] History of Past illness Narrative* Problem Noted Date Resolved Date Diarrhea 06/18/2019 11/02/2020 Stage 3 chronic kidney disease 01/23/2018 0 11/02/2020 Hypercapnia 01/22/2018 11/02/2020 Pre-op testing 11/11/2017 01/03/2020 Overview: Added automatically from request for surgery [id number] Coronary disease 12/11/2011 11/02/2020 Morbid obesity 01/03/2020 Anxiety 11/21/2021 Sleep apnea 02/14/2017 COPD (chronic obstructive pulmonary disease) 04/16/2019 Constipation 11/02/2020 DM type 2 (diabetes mellitus, type 2) 02/14/2017 Shortness of breath 02/14/2017 documented as of this encounter (statuses as of 02/04/2023) [facility] History of Past illness Narrative* Problem Noted Date Resolved Date Diarrhea 06/18/2019 11/02/2020 Stage 3 chronic kidney disease 01/23/2018 0 11/02/2020 Hypercapnia 01/22/2018 11/02/2020 Pre-op testing 11/11/2017 01/03/2020 Overview: Added automatically from request for surgery [id number] Coronary disease 12/11/2011 11/02/2020 Morbid obesity 01/03/2020 Anxiety 11/21/2021 Sleep apnea 02/14/2017 COPD (chronic obstructive pulmonary disease) 04/16/2019 Constipation 11/02/2020 DM type 2 (diabetes mellitus, type 2) 02/14/2017 Shortness of breath 02/14/2017 documented as of this encounter (statuses as of 03/18/2023) [facility] History of Past illness Narrative* Problem Noted Date Resolved Date Diarrhea 06/18/2019 11/02/2020 Stage 3 chronic kidney disease 01/23/2018 0 11/02/2020 Hypercapnia 01/22/2018 11/02/2020 Pre-op testing 11/11/2017 01/03/2020 Overview: Added automatically from request for surgery [id number] Coronary disease 12/11/2011 11/02/2020 Morbid obesity 01/03/2020 Anxiety 11/21/2021 Sleep apnea 02/14/2017 COPD (chronic obstructive pulmonary disease) 04/16/2019 Constipation 11/02/2020 DM type 2 (diabetes mellitus, type 2) 02/14/2017 Shortness of breath 02/14/2017 documented as of this encounter (statuses as of 03/18/2023) [facility] History of Past illness Narrative* Problem Noted Date Resolved Date Diarrhea 06/18/2019 11/02/2020 Stage 3 chronic kidney disease 01/23/2018 0 11/02/2020 Hypercapnia 01/22/2018 11/02/2020 Pre-op testing 11/11/2017 01/03/2020 Overview: Added automatically from request for surgery [id number] Coronary disease 12/11/2011 11/02/2020 Morbid obesity 01/03/2020 Anxiety 11/21/2021 Sleep apnea 02/14/2017 COPD (chronic obstructive pulmonary disease) 04/16/2019 Constipation 11/02/2020 DM type 2 (diabetes mellitus, type 2) 02/14/2017 Shortness of breath 02/14/2017 documented as of this encounter (statuses as of 03/19/2023) [facility] History of Past illness Narrative* Problem Noted Date Resolved Date Diarrhea 06/18/2019 11/02/2020 Stage 3 chronic kidney disease 01/23/2018 0 11/02/2020 Hypercapnia 01/22/2018 11/02/2020 Pre-op testing 11/11/2017 01/03/2020 Overview: Added automatically from request for surgery [id number] Coronary disease 12/11/2011 11/02/2020 Morbid obesity 01/03/2020 Anxiety 11/21/2021 Sleep apnea 02/14/2017 COPD (chronic obstructive pulmonary disease) 04/16/2019 Constipation 11/02/2020 DM type 2 (diabetes mellitus, type 2) 02/14/2017 Shortness of breath 02/14/2017 documented as of this encounter (statuses as of 03/20/2023) [facility] History of Past illness Narrative* Problem Noted Date Resolved Date Diarrhea 06/18/2019 11/02/2020 Stage 3 chronic kidney disease 01/23/2018 0 11/02/2020 Hypercapnia 01/22/2018 11/02/2020 Pre-op testing 11/11/2017 01/03/2020 Overview: Added automatically from request for surgery [id number] Coronary disease 12/11/2011 11/02/2020 Morbid obesity 01/03/2020 Anxiety 11/21/2021 Sleep apnea 02/14/2017 COPD (chronic obstructive pulmonary disease) 04/16/2019 Constipation 11/02/2020 DM type 2 (diabetes mellitus, type 2) 02/14/2017 Shortness of breath 02/14/2017 documented as of this encounter (statuses as of 03/24/2023) [facility] History of Past illness Narrative* Problem Noted Date Resolved Date Diarrhea 06/18/2019 11/02/2020 Stage 3 chronic kidney disease 01/23/2018 0 11/02/2020 Hypercapnia 01/22/2018 11/02/2020 Pre-op testing 11/11/2017 01/03/2020 Overview: Added automatically from request for surgery [id number] Coronary disease 12/11/2011 11/02/2020 Morbid obesity 01/03/2020 Anxiety 11/21/2021 Sleep apnea 02/14/2017 COPD (chronic obstructive pulmonary disease) 04/16/2019 Constipation 11/02/2020 DM type 2 (diabetes mellitus, type 2) 02/14/2017 Shortness of breath 02/14/2017 documented as of this encounter (statuses as of 03/25/2023) [facility] History of Past illness Narrative* Problem Noted Date Diagnosed Date Resolved Date Diarrhea 06/18/2019 11/02/2020 Stage 3 chronic kidney disease 01/23/2018 11/02/2020 Hypercapnia 01/22/2018 11/02/2020 Pre-op testing 11/11/2017 01/03/2020 Overview: Added automatically from request for surgery [id number] Coronary disease 12/11/2011 11/02/2020 Morbid obesity 01/03/2020 Anxiety 11/21/2021 Sleep apnea 02/14/2017 COPD (chronic obstructive pulmonary disease) 04/16/2019 Constipation 11/02/2020 DM type 2 (diabetes mellitus, type 2) 02/14/2017 Shortness of breath 02/15/20 17 documented as of this encounter (statuses as of 04/04/2023) [facility] History of Past illness Narrative* Problem Noted Date Diagnosed Date Resolved Date Diarrhea 06/18/2019 11/02/2020 Stage 3 chronic kidney disease 01/23/2018 11/02/2020 Hypercapnia 01/22/2018 11/02/2020 Pre-op testing 11/11/2017 01/03/2020 Overview: Added automatically from request for surgery [id number] Coronary disease 12/11/2011 11/02/2020 Morbid obesity 01/03/2020 Anxiety 11/21/2021 Sleep apnea 02/14/2017 COPD (chronic obstructive pulmonary disease) 04/16/2019 Constipation 11/02/2020 DM type 2 (diabetes mellitus, type 2) 02/14/2017 Shortness of breath 02/15/20 17 documented as of this encounter (statuses as of 04/23/2023) [facility] History of Past illness Narrative* Problem Noted Date Diagnosed Date Resolved Date Diarrhea 06/18/2019 11/02/2020 Stage 3 chronic kidney disease 01/23/2018 11/02/2020 Hypercapnia 01/22/2018 11/02/2020 Pre-op testing 11/11/2017 01/03/2020 Overview: Added automatically from request for surgery [id number] Coronary disease 12/11/2011 11/02/2020 Morbid obesity 01/03/2020 Anxiety 11/21/2021 Sleep apnea 02/14/2017 COPD (chronic obstructive pulmonary disease) 04/16/2019 Constipation 11/02/2020 DM type 2 (diabetes mellitus, type 2) 02/14/2017 Shortness of breath 02/15/20 17 documented as of this encounter (statuses as of 05/09/2023) [facility] History of Past illness Narrative* Problem Noted Date Diagnosed Date Resolved Date Diarrhea 06/18/2019 11/02/2020 Stage 3 chronic kidney disease 01/23/2018 11/02/2020 Hypercapnia 01/22/2018 11/02/2020 Pre-op testing 11/11/2017 01/03/2020 Overview: Added automatically from request for surgery [id number] Coronary disease 12/11/2011 11/02/2020 Morbid obesity 01/03/2020 Anxiety 11/21/2021 Sleep apnea 02/14/2017 COPD (chronic obstructive pulmonary disease) 04/16/2019 Constipation 11/02/2020 DM type 2 (diabetes mellitus, type 2) 02/14/2017 Shortness of breath 02/15/20 17 documented as of this encounter (statuses as of 05/13/2023) [facility] History of Past illness Narrative* Problem Noted Date Diagnosed Date Resolved Date Diarrhea 06/18/2019 11/02/2020 Stage 3 chronic kidney disease 01/23/2018 11/02/2020 Hypercapnia 01/22/2018 11/02/2020 Pre-op testing 11/11/2017 01/03/2020 Overview: Added automatically from request for surgery [id number] Coronary disease 12/11/2011 11/02/2020 Morbid obesity 01/03/2020 Anxiety 11/21/2021 Sleep apnea 02/14/2017 COPD (chronic obstructive pulmonary disease) 04/16/2019 Constipation 11/02/2020 DM type 2 (diabetes mellitus, type 2) 02/14/2017 Shortness of breath 02/15/20 17 documented as of this encounter (statuses as of 05/16/2023) [facility] History of Past illness Narrative* Problem Noted Date Diagnosed Date Resolved Date Diarrhea 06/18/2019 11/02/2020 Stage 3 chronic kidney disease 01/23/2018 11/02/2020 Hypercapnia 01/22/2018 11/02/2020 Pre-op testing 11/11/2017 01/03/2020 Overview: Added automatically from request for surgery [id number] Coronary disease 12/11/2011 11/02/2020 Morbid obesity 01/03/2020 Anxiety 11/21/2021 Sleep apnea 02/14/2017 COPD (chronic obstructive pulmonary disease) 04/16/2019 Constipation 11/02/2020 DM type 2 (diabetes mellitus, type 2) 02/14/2017 Shortness of breath 02/15/20 17 documented as of this encounter (statuses as of 06/03/2023) [facility] History of Past illness Narrative* Problem Noted Date Diagnosed Date Resolved Date Diarrhea 06/18/2019 11/02/2020 Stage 3 chronic kidney disease 01/23/2018 11/02/2020 Hypercapnia 01/22/2018 11/02/2020 Pre-op testing 11/11/2017 01/03/2020 Overview: Added automatically from request for surgery [id number] Coronary disease 12/11/2011 11/02/2020 Morbid obesity 01/03/2020 Anxiety 11/21/2021 Sleep apnea 02/14/2017 COPD (chronic obstructive pulmonary disease) 04/16/2019 Constipation 11/02/2020 DM type 2 (diabetes mellitus, type 2) 02/14/2017 Shortness of breath 02/15/20 17 documented as of this encounter (statuses as of 06/04/2023) [facility] History of Past illness Narrative* Problem Noted Date Diagnosed Date Resolved Date Diarrhea 06/18/2019 11/02/2020 Stage 3 chronic kidney disease 01/23/2018 11/02/2020 Hypercapnia 01/22/2018 11/02/2020 Pre-op testing 11/11/2017 01/03/2020 Overview: Added automatically from request for surgery [id number] Coronary disease 12/11/2011 11/02/2020 Morbid obesity 01/03/2020 Anxiety 11/21/2021 Sleep apnea 02/14/2017 COPD (chronic obstructive pulmonary disease) 04/16/2019 Constipation 11/02/2020 DM type 2 (diabetes mellitus, type 2) 02/14/2017 Shortness of breath 02/15/20 17 documented as of this encounter (statuses as of 06/11/2023) [facility] History of Past illness Narrative* Problem Noted Date Diagnosed Date Resolved Date Diarrhea 06/18/2019 11/02/2020 Stage 3 chronic kidney disease 01/23/2018 11/02/2020 Hypercapnia 01/22/2018 11/02/2020 Pre-op testing 11/11/2017 01/03/2020 Overview: Added automatically from request for surgery [id number] Coronary disease 12/11/2011 11/02/2020 Morbid obesity 01/03/2020 Anxiety 11/21/2021 Sleep apnea 02/14/2017 COPD (chronic obstructive pulmonary disease) 04/16/2019 Constipation 11/02/2020 DM type 2 (diabetes mellitus, type 2) 02/14/2017 Shortness of breath 02/15/20 17 documented as of this encounter (statuses as of 06/13/2023) [facility] History of Past illness Narrative* Problem Noted Date Diagnosed Date Resolved Date Diarrhea 06/18/2019 11/02/2020 Stage 3 chronic kidney disease 01/23/2018 11/02/2020 Hypercapnia 01/22/2018 11/02/2020 Pre-op testing 11/11/2017 01/03/2020 Overview: Added automatically from request for surgery [id number] Coronary disease 12/11/2011 11/02/2020 Morbid obesity 01/03/2020 Anxiety 11/21/2021 Sleep apnea 02/14/2017 COPD (chronic obstructive pulmonary disease) 04/16/2019 Constipation 11/02/2020 DM type 2 (diabetes mellitus, type 2) 02/14/2017 Shortness of breath 02/15/20 17 documented as of this encounter (statuses as of 07/07/2023) [facility] History of Past illness Narrative* Problem Noted Date Diagnosed Date Resolved Date Diarrhea 06/18/2019 11/02/2020 Stage 3 chronic kidney disease 01/23/2018 11/02/2020 Hypercapnia 01/22/2018 11/02/2020 Pre-op testing 11/11/2017 01/03/2020 Overview: Added automatically from request for surgery [id number] Coronary disease 12/11/2011 11/02/2020 Morbid obesity 01/03/2020 Anxiety 11/21/2021 Sleep apnea 02/14/2017 COPD (chronic obstructive pulmonary disease) 04/16/2019 Constipation 11/02/2020 DM type 2 (diabetes mellitus, type 2) 02/14/2017 Shortness of breath 02/15/20 17 documented as of this encounter (statuses as of 07/27/2023) [facility] History of Past illness Narrative* Problem Noted Date Diagnosed Date Resolved Date Diarrhea 06/18/2019 11/02/2020 Stage 3 chronic kidney disease 01/23/2018 11/02/2020 Hypercapnia 01/22/2018 11/02/2020 Pre-op testing 11/11/2017 01/03/2020 Overview: Added automatically from request for surgery [id number] Coronary disease 12/11/2011 11/02/2020 Morbid obesity 01/03/2020 Anxiety 11/21/2021 Sleep apnea 02/14/2017 COPD (chronic obstructive pulmonary disease) 04/16/2019 Constipation 11/02/2020 DM type 2 (diabetes mellitus, type 2) 02/14/2017 Shortness of breath 02/15/20 17 documented as of this encounter (statuses as of 08/13/2023) [facility] History of Past illness Narrative* Problem Noted Date Diagnosed Date Resolved Date Diarrhea 06/18/2019 11/02/2020 Stage 3 chronic kidney disease 01/23/2018 11/02/2020 Hypercapnia 01/22/2018 11/02/2020 Pre-op testing 11/11/2017 01/03/2020 Overview: Added automatically from request for surgery [id number] Coronary disease 12/11/2011 11/02/2020 Morbid obesity 01/03/2020 Anxiety 11/21/2021 Sleep apnea 02/14/2017 COPD (chronic obstructive pulmonary disease) 04/16/2019 Constipation 11/02/2020 DM type 2 (diabetes mellitus, type 2) 02/14/2017 Shortness of breath 02/15/20 17 documented as of this encounter (statuses as of 08/22/2023) [facility]09-27-2019 History of Past illness Narrative* Problem Noted Date Diagnosed Date Resolved Date Diarrhea 06/18/2019 11/02/2020 Stage 3 chronic kidney disease 01/23/2018 11/02/2020 Hypercapnia 01/22/2018 11/02/2020 Pre-op testing 11/11/2017 01/03/2020 Overview: Added automatically from request for surgery [id number] Coronary disease 12/11/2011 11/02/2020 Morbid obesity 01/03/2020 Anxiety 11/21/2021 Sleep apnea 02/14/2017 COPD (chronic obstructive pulmonary disease) 04/16/2019 Constipation 11/02/2020 DM type 2 (diabetes mellitus, type 2) 02/14/2017 Shortness of breath 02/15/20 17 documented as of this encounter (statuses as of 09/12/2023) [facility]03-01-2004 Evaluation note* Diagnosis Onset Date Resolution Status Atherosclerotic heart diseas e of [place] coronary artery without angina pectoris acute Diabetes mellitus type 2 in obese acute Presence of stent in coronary artery November, acute Chest pain resolved Coagulopathy resolved Contusion of multiple sites resolved Elevated serum creatinine re solved Muscle strain resolved Atherosclerotic heart diseas e of [place] coronary artery without angina pectoris acute Chest pain acute Pulmonary hypertension acute Essential hypertension chron ic Mixed hyperlipidemia chronic [facility] Work Phone: 1(910) 758-299103-01-2004 Evaluation note* Diagnosis Onset Date Resolution Status Atrial fibrillation acute Chest pain acute History of CAD (coronary artery disease) acute History of hypertension acut e Presence of stent in coronary artery November, acute Essential hypertension chron [facility] Work Phone: 1(910) 278-996103-01-2004 Evaluation note* Diagnosis Onset Date Resolution Status [...] in coronary artery November, acute Pulmonary hypertension [facility] Work Phone: 1(448) 682-559703-01-2004 Evaluation note* Diagnosis Onset Date Resolution Status [...] in coronary artery November, acute Pulmonary hypertension [facility] Work Phone: Discharge summary Author Reyna Champagne [facility] August 20, 2023 3:49pm Note Date/Time August 20, 2023 3:28pm [facility] Medical Records Department [address] [place] [id number] Instructions for Home/Discharge Instructions 08/20/23 1526 MR#: [id number] Acct: [id number] Name: TAMIA PANDA Rep #:[id number] : 1955 68 From: Reyna Champagne MD [...] to schedule your hospital follow-up appointment (ph. [phone]) -Continue your Eliquis and Plavix but you do not need to take aspirin at this time. 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 [phone])) Disposition Disposition (needs filled in before D/C Order can be placed): Home Health Service 08/20/23 1549<Electronically signed by Reyna Champagne MD>Reyna Champagne MD CC: Dr. Bhupendra Oliveira MD; Dr. Yvon Hogan MD; Dr. Yvon Wilson DO;Dr. Syed Montanez MD ~ Signed [facility] Work Phone: Evaluation + Plan note Future Appointments [facility] Evaluation noteNo assessment information available [facility] Work Phone: Evaluation note* Diagnosis Fall in home, initial encounter- Primary Closed fracture of one rib of left side, initial encounter Abrasion of left elbow, initial encounter Acute pain of left shoulder Acute hip pain, left Acute pain of left knee [facility] Diagnosis Hyperuricemia Other abnormal blood chemistry Globus sensation Gastrointestinal malfunction arising from mental factors Hoarseness of voice Dysphonia GERD without esophagitis Esophageal reflux Sleeping difficulty Sleep disturbance, unspecified [facility] Diagnosis Encounter for screening mammogram for breast cancer [facility] Diagnosis Epistaxis- Primary Melanotic stools Blood in stool Dusky feet Other symptoms involving skin and integumentary tissues Type 2 diabetes mellitus with diabetic neuropathy, with long-term current use of insulin (HCC) Type 2 diabetes mellitus with hyperglycemia, with long-term current use of insulin ([facility]) Essential hypertension Unspecified essential hypertension [facility]* Diagnosis Anemia, unspecified type- Primary [facility]* Diagnosis Congestive heart failure, unspecified HF chronicity, unspecified heart failure type ([facility]) Anxiety with depression Pruritus of skin Unspecified pruritic disorder [facility]* Diagnosis Itching- Primary Unspecified pruritic disorder [facility]* Diagnosis Dusky feet- Primary Other symptoms involving skin and integumentary tissues Type 2 diabetes mellitus with diabetic neuropathy, with long-term current use of insulin ([facility]) Urinary frequency Essential hypertension Unspecified essential hypertension Epistaxis 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 [facility] Diagnosis Anemia, unspecified type [facility]* Diagnosis Type 2 diabetes mellitus with diabetic neuropathy, with long-term current use of insulin ([facility])- Primary Positive urine drug screen Nonspecific abnormal toxicological findings Acute left flank pain Abdominal pain, unspecified site Tinea pedis of both feet [place] treated with BiPAP PAD (peripheral artery disease) ([facility]) Peripheral vascular disease, unspecified Dusky feet Other symptoms involving skin and integumentary tissues Essential hypertension Unspecified essential hypertension [facility]* Diagnosis Peripheral arterial disease (HCC)- Primary Peripheral vascular disease, unspecified Dusky feet Other symptoms involving skin and integumentary tissues [facility] Diagnosis Onset Date Resolution Status Pulmonary hypertension acute Atherosclerotic heart diseas e of [place] coronary artery without angina pectoris chronic Essential hypertension chron ic Mixed hyperlipidemia chronic Paroxysmal A-fib chronic [facility] Work Phone: Evaluation note* Diagnosis Anxiety with depression [facility]* Diagnosis Type 2 diabetes mellitus with diabetic neuropathy, with long-term current use of insulin ([facility]) documented in this encounter [facility] note* Diagnosis Type 2 diabetes mellitus with diabetic neuropathy, with long-term current use of insulin ([facility])- Primary Epistaxis Anemia, unspecified type Essential hypertension Unspecified essential hypertension AF (paroxysmal atrial fibrillation) (HCC) Atrial fibrillation Need for influenza vaccination Need for prophylactic vaccination and inoculation against influenza Need for COVID-19 vaccine documented [facility] this encounter [facility]* Diagnosis Urinary incontinence, unspecified type- Primary Urinary frequency Type 2 diabetes mellitus with diabetic neuropathy, with long-term current use of insulin ([facility]) Incontinence of feces, unspecified fecal incontinence type Itching Unspecified pruritic disorder Candidal intertrigo Candidiasis of skin and nails [facility] this encounter [facility]* Diagnosis Hyperuricemia Other abnormal blood chemistry Globus sensation Gastrointestinal malfunction arising from mental factors Hoarseness of voice Dysphonia GERD without esophagitis Esophageal reflux Sleeping difficulty Sleep disturbance, unspecified Anemia, unspecified type documented in this encounter [facility]* Diagnosis Onset Date Resolution Status Pulmonary hypertension acute Atherosclerotic heart diseas e of [place] coronary artery without angina pectoris chronic Essential hypertension chron ic Mixed hyperlipidemia chronic Paroxysmal A-fib chronic Anxiety acute Chest pain acute Closed intertrochanteric fracture of left femur acute Coagulopathy acute Contusion of multiple sites acute Fall at home acute Muscle strain acute [facility] Work Phone: Evaluation note* Diagnosis Onset Date Resolution Status Pulmonary hypertension acute Atherosclerotic heart diseas e of [place] coronary artery without angina pectoris chronic Essential hypertension chron ic Mixed hyperlipidemia chronic Paroxysmal A-fib chronic Anxiety acute Chest pain acute Closed intertrochanteric fracture of left femur acute Coagulopathy acute Contusion of multiple sites acute Elevated serum creatinine ac [place] Fall at home acute Muscle strain acute Atherosclerotic heart diseas e of [place] coronary artery without angina pectoris chronic Chronic respiratory insufficiency chronic COPD (chronic obstructive pulmonary disease) chronic Diabetes mellitus type 2 in obese chronic [place] (obstructive sleep apnea) chronic Paroxysmal A-fib chronic Presence of stent in coronary artery November, chronic [facility] Work Phone: Evaluation note* Diagnosis Congestive heart failure, unspecified HF chronicity, unspecified heart failure type ([facility]) [facility] Diagnosis Onset Date Resolution Status Pulmonary hypertension acute Essential hypertension chron ic Mixed hyperlipidemia chronic Chest pain resolved Coagulopathy resolved Contusion of multiple sites resolved Elevated serum creatinine re solved Muscle strain resolved [facility] Work Phone: Evaluation note* Diagnosis Pre-operative [...] IV, or unspecified Coronary artery disease of [place] artery of [place] heart with stable angina pectoris ([facility]) [facility]* Diagnosis At high risk for falls- Primary Personal history of fall Closed fracture of left hip with delayed healing, subsequent encounter [facility]* Diagnosis Anemia, unspecified type Anxiety with depression documented [facility] this encounter [facility]* Diagnosis Onset Date Resolution Status Atherosclerotic heart diseas e of [place] coronary artery without angina pectoris acute Chest pain acute Pulmonary hypertension acute Essential hypertension chron ic Mixed hyperlipidemia chronic Paroxysmal A-fib chronic Atherosclerotic heart diseas e of [place] coronary artery without angina pectoris acute Chest pain acute Pre-op evaluation acute Pulmonary hypertension acute Essential hypertension chron ic Mixed hyperlipidemia chronic Paroxysmal A-fib chronic Closed intertrochanteric fracture of left femur acute Diabetes mellitus type 2 in obese acute [facility] Work Phone: Evaluation note* Diagnosis Foot pain, left- Primary Pain in limb [facility] Diagnosis Encounter for screening mammogram for breast cancer [facility]* Diagnosis At risk for falling- Primary Personal history of fall Fracture of hip, closed, left, with delayed healing, subsequent encounter Pulmonary HTN (HCC) Other chronic pulmonary heart diseases On home oxygen therapy Dependence on supplemental oxygen [facility]* Diagnosis Urinary incontinence, unspecified type- Primary documented in [facility] encounter [facility]* Diagnosis Anemia, unspecified type Globus sensation Gastrointestinal malfunction arising from mental factors Hoarseness of voice Dysphonia GERD without esophagitis Esophageal reflux Hyperuricemia Other abnormal blood chemistry [facility]* Diagnosis Tinea pedis of left foot- Primary Dermatophytosis of foot Blister of toe of left foot, initial encounter Dermatitis Contact dermatitis and other eczema, due to unspecified cause [facility]* Diagnosis Type 2 diabetes mellitus with diabetic neuropathy, with long-term current use of insulin ([facility])- Primary Fall in home, initial encounter Injury of head, initial encounter Essential hypertension Unspecified essential hypertension Petechiae Spontaneous ecchymoses 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rder ([facility]) documented [facility] encounter [facility]* Diagnosis Tinea pedis of left foot- Primary Dermatophytosis of foot Dermatitis Contact dermatitis and other eczema, due to unspecified cause [facility]* Diagnosis Onset Date Resolution Status Closed intertrochanteric fracture of left femur acute Diabetes mellitus type 2 in obese [facility] Work Phone: Evaluation note* Diagnosis Labial cyst- Primary Other specified noninflammatory disorder of vulva and perineum documented [facility] encounter [facility]* Diagnosis Anemia, unspecified type Anxiety with depression [facility]* Diagnosis Type 2 diabetes mellitus with hyperglycemia, with long-term current use of insulin (HCC)- Primary Coronary artery disease of [place] artery of [place] heart with stable angina pectoris (HCC) documented [facility] this encounter [facility]* Diagnosis Type 2 diabetes mellitus with hyperglycemia, with long-term current use of insulin (HCC) [facility]* Diagnosis Type 2 diabetes mellitus with diabetic neuropathy, with long-term current use of insulin (HCC) Type 2 diabetes mellitus with hyperglycemia, with long-term current use of insulin ([facility]) [facility]* Diagnosis Onychomycosis- Primary Dermatophytosis of nail Pain in toe of right foot Pain in limb Pain in toe of left foot Pain in limb Peripheral arterial disease (HCC) Peripheral vascular disease, unspecified Other diabetic neurological complication associated with type 2 diabetes mellitus (HCC) [facility]* Diagnosis Hyperuricemia Other abnormal blood chemistry Anemia, unspecified type Globus sensation Gastrointestinal malfunction arising from mental factors Hoarseness of voice Dysphonia GERD without esophagitis Esophageal reflux documented [facility] this encounter [facility]* Diagnosis Type 2 diabetes mellitus with diabetic neuropathy, with long-term current use of insulin ([facility]) documented [facility] this encounter [facility]* Diagnosis Other chest pain- Primary Atrial fibrillation with RVR ([facility]) Atrial fibrillation FUO (fever of unknown origin) Fever, unspecified Shaking chills Chills (without fever) Productive cough Cough Decreased breath sounds of both lungs Confusion Unspecified psychosis [facility]* Diagnosis Onset Date Resolution Status Anemia [...] chron ic Mixed hyperlipidemia chronic Choledocholithiasis resolved [facility] Work Phone: Evaluation note* Diagnosis Onychomycosis- Primary Dermatophytosis of nail Pain in toe of right foot Pain in limb Pain in toe of left foot Pain in limb Peripheral arterial disease (HCC) Peripheral vascular disease, unspecified Other diabetic neurological complication associated with type 2 diabetes mellitus ([facility]) Venous insufficiency Unspecified venous (peripheral) insufficiency [facility] Diagnosis Onset Date Resolution Status Choledocholithiasis resolved [facility] Work Phone: Evaluation note* Diagnosis Venous insufficiency- Primary Unspecified venous (peripheral) insufficiency [facility] Diagnosis Full incontinence of feces- Primary Continuous leakage of urine Continuous leakage Vulvar irritation Other specified noninflammatory disorder of vulva and perineum documented in this encounter [facility]* Diagnosis Fall in home, initial encounter Acute pain of both knees documented in this encounter [facility]* Diagnosis Cellulitis of left foot Cellulitis and abscess of foot, except toes documented [facility] encounter [facility]* Diagnosis Bronchitis Bronchitis, not specified as acute or chronic documented in this encounter [facility]* Diagnosis Pre-operative clearance Preoperative examination, unspecified documented [facility] this encounter [facility]* Diagnosis Itching Unspecified pruritic disorder documented [facility] this encounter [facility]* Diagnosis Onychomycosis- Primary Dermatophytosis of nail Pain in toe of right foot Pain in limb Pain in toe of left foot Pain in limb Venous insufficiency Unspecified venous (peripheral) insufficiency Peripheral arterial disease (HCC) Peripheral vascular disease, unspecified Other diabetic neurological complication associated with type 2 diabetes mellitus (HCC) [facility] Narrative No data available for this section [facility] Hospital Discharge instructions No data available for this section [facility] Hospital Discharge instructions Additional Instructions Please 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 Please return to the emergency room if the redness is getting worse you develop fever or any progression of your symptoms.[facility] Work Phone: Hospital Discharge instructions Additional [...] have any further concerns or worsening of symptomsWSt. Anthony's Hospital Work Phone: Hospital Discharge instructions Additional Instructions Follow-up with Dr. Bart Blas as scheduled. Take your nitroglycerin as needed for chest pain. Additionally keep control of your blood pressureWSt. Anthony's Hospital Work Phone: Hospital Discharge instructionsAdditional Instructions [...] acting right. Follow-up with your doctor as needed.[facility] Work Phone: Progress note No data available for this section [facility] Progress note Author Dr. Fernández [facility] December 20, 2022 3:46pm Note Date/Time December 20, 2022 3:4 6pm [facility] Medical Records Department [address] [place] [id number] Progress Note - Hospitalist 12/20/22 1542 MR#: [id number] Acct: [id number] Name: TAMIA PADNA Rep #:[id number] : 1955 67 From: Yared Fernández DO PCP: Dr. Bhupendra Oliveira MD Status :ADM IN Location: [facility] LR270-9 Reason for Visit Reason for Visit: Diagnoses [...] 35 minutes Charges/Coding Visit Charges Inpatient E&M: 94161 Subs Hosp L2 12/20/22 1540 <Electronically signed by Yared Fernández DO> Cosigner Signature (if applicable): CC: ~ Signed [facility] Work Phone: Reason for referral (narrative)* Diagnostic Procedure Only (Routine) - Pending Review Specialty Diagnoses / Procedures Referred By Sarah t Referred To Contact [facility] Diagnoses Encounter for screening mammogram for breast cancer Procedures RABIA SCREENING SCREENING MAMMOGRAPHY BI 2-VIEW BREAST INC CAD Nanda Oliveira MD [address] [place] [address] [facility] [address] [place] [address] Referral ID Status Reason Start Date Expiration Date Visits Requested Visits Authorized [id number] Pending Review Auto-Generat ed Referral 02/06/2022 03/08/2023 1 1 [facility] for referral (narrative)* Outpatient Procedure (Routine) - Closed Specialty Diagnoses / Procedures Referred By Contac t Referred To Contact [facility] [place] Diagnoses Peripheral arterial disease (HCC) Procedures PVR ANK/RAMIREZ/TOE NIRU VAS LAB NON-INVAS PHYSIOLOGIC STD EXTREMITY ART 2 LEVEL Katja Coles DO [address] [place] [address] [address] Referral ID Status Reason Start Date Expiration Date V isits Requested Visits Authorized [id number] Closed Auto-Generate d Referral 06/04/2022 06/04/2023 1 1 T [facility] for referral (narrative)* Outpatient Procedure (Routine) - Closed Specialty Diagnoses / Procedures Referred By Contac t Referred To Contact [facility] Diagnoses AF (paroxysmal atrial fibrillation) (HCC) Pre-operative clearance Procedures ECG COMPLETE ECG ROUTINE ECG W/LEAST 12 LDS W/I&R Nanda Oliveira MD [address] [place] [address] [address] Referral ID Status Reason Start Date Expiration Date V isits Requested Visits Authorized [id number] Closed Auto-Generate d Referral 09/27/2022 09/27/2023 1 1 [facility] for referral (narrative)* Diagnostic Procedure Only (Routine) - Pending Review Specialty Diagnoses / Procedures Referred By Sarah jerome Referred To Contact [facility] Diagnoses Encounter for screening mammogram for breast cancer Procedures RABIA SCREENING SCREENING MAMMOGRAPHY BI 2-VIEW BREAST INC CAD Nanda Oliveira MD [address] [place] [address] [facility] [address] [place] [address] Referral ID Status Reason Start Date Expiration Date Visits Requested Visits Authorized [id number] Pending Review Auto-Generat ed Referral 01/08/2023 02/07/2024 1 1 [facility] for referral (narrative)* Outpatient Procedure (Routine) - Pending Review Specialty Diagnoses / Procedures Referred By Sarah jerome Referred To Contact [facility] Diagnoses Other chest pain Procedures ECG COMPLETE ECG ROUTINE ECG W/LEAST 12 LDS W/I&R Nanda Oliveira MD [address] [place] [address] [facility] [place] [address] [place] [address] Referral ID Status Reason Start Date Expiration Date Visits Requested Visits Authorized [id number] Pending Review Auto-Generat ed Referral 3 08/12/2024 1 1 [facility] for referral (narrative)* Diagnostic Procedure Only (Urgent) - Closed Specialty Diagnoses / Procedures Referred By Sarah jerome Referred To Contact [facility] Diagnoses Fall in home, initial encounter Acute pain of both knees Procedures XR KNEE GENERAL 4V AP BOTH/PA BOTH/LAT/MERC BILATERAL RADIOLOGIC EXAM KNEE COMPLETE 4/MORE VIEWS Nanda Oliveira MD [address] [place] [id number] [place] [id number] Referral ID Status Reason Start Date Expiration Date V isits Requested Visits Authorized [id number] Closed Auto-Generate d Referral 02/28/2023 03/29/2024 1 1 [facility] for referral (narrative)* Diagnostic Procedure Only (Routine) - Closed Specialty Diagnoses / Procedures Referred By Michaelac t Referred To Contact XR IMAGING Diagnoses Cellulitis of left foot Procedures XR FOOT GENERAL 3V AP/LAT/OBL LEFT RADEX FOOT COMPLETE MINIMUM 3 VIEWS Nanda Oliveira MD [address] [place] [address] [place] [address] Referral ID Status Reason Start Date Expiration Date V isits Requested Visits Authorized [id number] Closed Auto-Generate d Referral 01/09/2023 02/08/2024 1 1 [facility] for referral (narrative)No reason for referral information availableWSt. [facility] N[facility]* Diagnostic Procedure Only (Urgent) - Closed Specialty Diagnoses / Procedures Referred By Contac t Referred To Contact XR IMAGING Diagnoses Fall in home, initial encounter Acute pain of both knees Procedures XR KNEE GENERAL 4V AP BOTH/PA BOTH/LAT/MERC BILATERAL RADIOLOGIC EXAM KNEE COMPLETE 4/MORE VIEWS Nanda Oliveira MD [address] [place] [address] [place] [address] Referral ID Status Reason Start Date Expiration Date V isits Requested Visits Authorized [id number] Closed Auto-Generate d Referral 02/28/2023 03/29/2024 1 1 [facility] for visit Narrative* Diagnostic Procedure Only (Routine) - Closed Specialty Diagnoses / Procedures Referred By Sarah t Referred To Contact XR IMAGING Diagnoses Cellulitis of left foot Procedures XR FOOT GENERAL 3V AP/LAT/OBL LEFT RADEX FOOT COMPLETE MINIMUM 3 VIEWS Nanda Oliveira MD [address] [place] [address] [place] [address] Referral ID Status Reason Start Date Expiration Date V isits Requested Visits Authorized [id number] Closed Auto-Generate d Referral 01/09/2023 02/08/2024 1 1 [facility] Summary Purpose Family History No Family [...] No December 23, 2021 11:54pm Power of Loss Prevention Research Engineer No December 23 11:54pm Documents on File Type Date Recorded Patient Drawing Tracer Expl anation Advance Directive(s) 09/06/2020 3:13 PM Advance Directive(s) 01/23/2018 12:52 PM Advance Directive(s) 01/23/2018 4:04 PM Advance Directive(s) 01/23/2018 4:06 PM Advance Directive(s) 12/15/2017 4:32 PM Advance Directive(s) 08/01/2016 8:06 AM Documents on File Type Date Recorded Patient Drawing Tracer Expl anation Advance Directive(s) 09/06/2020 3:13 PM Advance Directive(s) 01/23/2018 12:52 PM Advance Directive(s) 01/23/2018 4:04 PM Advance Directive(s) 01/23/2018 4:06 PM Advance Directive(s) 12/15/2017 4:32 PM Advance Directive(s) 08/01/2016 8:06 AM Advance Directive Response Recorded Date/ Time Advance Directives No September 28, 2019 10:35am Living Will No February 23, 2022 8 :24am Power of Loss Prevention Research Engineer No February 23, 2022 8:24am Documents on File Type Date Recorded Patient Drawing Tracer Expl anation Advance Directive(s) 01/23/2018 4:06 PM Documents on File Type Date Recorded Patient Drawing Tracer Expl anation Advance Directive(s) 01/23/2018 4:06 PM Advance Directive Response Recorded Date/ Time Advance Directives No September 28, 2019 9:35am Living Will No August 03 022 5:27pm Power of Loss Prevention Research Engineer No August 03, 2022 5:27pm Advance Directive Response Recorded Date/ Time Advance Directives No September 28, 2019 9:35am Living Will No August 03 9:18pm Power of Loss Prevention Research Engineer No August 03, 2022 9:18pm Advance Directive Response Recorded Date/ Time Advance Directives No September 28, 2019 10:35am Living Will No December 18, 2022 10:25pm Power of Loss Prevention Research Engineer No December 18 10:25pm Advance Directive Response Recorded Date/ Time Advance Directives No September 28, 2019 10:35am Living Will No January 03, 2023 6:06pm Power of Loss Prevention Research Engineer No January 03 6:06pm Advance Directive Response Recorded Date/ Time Advance Directives No September 28, 2019 10:35am Living Will No January 14, 2023 12:57am Power of Loss Prevention Research Engineer No January 14 12:57am Advance Directive Response Recorded Date/ Time Advance Directives No September 28, 2019 10:35am Living Will No 2023 3:18pm Power of Loss Prevention Research Engineer No January 16 3:18pm Advance Directive Response Recorded Date/ Time Advance Directives No September 28, 2019 10:35am Living Will No April 23, 2023 6:28pm Power of Loss Prevention Research Engineer No April 23 6:28pm Advance Directive Response Recorded Date/ Time Advance Directives No September 28, 2019 10:35am Living Will No May 15 9:39pm Power of Loss Prevention Research Engineer No May 15, 2 023 9:39pm Advance Directive Response Recorded Date/ Time Advance Directives No September 28, 2019 10:35am Living Will No June 03, 2023 3:09pm Power of Loss Prevention Research Engineer No May 3:09pm Advance Directive Response Recorded Date/ Time Advance Directives No September 28, 2019 9:35am Living Will No August 13, 2 023 4:00pm Power of Loss Prevention Research Engineer No August 13, 2023 4:00pm Advance Directive Response Recorded Date/ Time Advance Directives No September 28, 2019 9:35am Living Will No August 13, 2 023 10:30pm Power of Loss Prevention Research Engineer No August 13, 2023 10:30pm Advance Directive Response Recorded Date/ Time Advance Directives No September 28, 2019 9:35am Living Will No November 25, 2023 9:23am Power of Loss Prevention Research Engineer No November 24 9:23am Advance Directive Response Recorded Date/ Time Advance Directives No September 28, 2019 10:35am Living Will No January 19, 2024 10:27am Power of Loss Prevention Research Engineer No January 18 10:27am Advance Directive Response Recorded Date/ Time Advance Directives No September 28, 2019 10:35am Living Will No June 10, 2023 2:16pm Power of Loss Prevention Research Engineer No May 2:16pm Advance Directive Response Recorded Date/ Time Living Will No August 13 11:30pm Power of Loss Prevention Research Engineer No August 13, 2023 11:30pm Living Will No December 04, 2024 6:29pm Power of Loss Prevention Research Engineer No December 04 6:29pm Advance Directives No September 28, 2019 10:35am Advance Directive Response Recorded Date/ Time Living Will No December 04, 2024 6:29pm Do you have a Healthcare Power of Loss Prevention Research Engineer? No December 04, 2024 6:29pm Advance Directives No September 28, 2019 10:35am Advance Directive Response Recorded Date/ Time Advance Directives No September 28, 2019 10:35am Advance Directive Response Recorded Date/ Time Do you have a Healthcare Power of Loss Prevention Research Engineer? No June 19, 2025 1:40pm Advance Directives [...] Pulmonary hypertensi on Atherosclerotic heart disease of [place] coronary artery without angina pectoris Essential hypertension Mixed hyperlipidemia Paroxysmal A-fib Chief Complaint 9 M FU E-ORDER LEFT HIP FRACTURE LEFT HIP FRACTURE Reason for Visit Pulmonary hypertensi on Atherosclerotic heart disease of [place] coronary artery without angina pectoris Essential hypertension Mixed hyperlipidemia Paroxysmal A-fib Anxiety Chest pain Closed intertrochanteric fracture of left femur Coagulopathy Contusion of multiple sites Fall at home Muscle strain Chief Complaint 9 M FU E-ORDER HIP FRACTURE LEFT HIP FRACTURE HIP FRACTURE HIP FRACTURE HIP FRACTURE HIP FRACTURE HIP FRACTURE Reason for Visit Pulmonary hypertensi on Atherosclerotic heart disease of [place] coronary artery without angina pectoris Essential hypertension Mixed hyperlipidemia Paroxysmal A-fib Anxiety Chest pain Closed intertrochanteric fracture of left femur Coagulopathy Contusion of multiple sites Elevated serum creatinine Fall at home Muscle strain Atherosclerotic heart disease of [place] coronary artery without angina pectoris Chronic respiratory [...] for Visit Atherosclerotic hear t disease of [place] coronary artery without angina pectoris Diabetes mellitus type 2 in obese Presence of stent in coronary artery Chest pain Coagulopathy Contusion of multiple sites Elevated serum creatinine Muscle strain Atherosclerotic heart disease of [place] coronary artery without angina pectoris Chest pain [...] for Visit Atherosclerotic hear t disease of [place] coronary artery without angina pectoris Chest pain Pulmonary hypertension Essential hypertension Mixed hyperlipidemia Paroxysmal A-fib Atherosclerotic heart disease of [place] coronary artery without angina pectoris Chest pain [...] for Visit Atherosclerotic hear t disease of [place] coronary artery without angina pectoris Chest pain Pulmonary hypertension Essential hypertension Mixed hyperlipidemia Paroxysmal A-fib Atherosclerotic heart disease of [place] coronary artery without angina pectoris Chest pain [...] for Visit Atherosclerotic hear t disease of [place] coronary artery without angina pectoris Chest pain Pulmonary hypertension Essential hypertension Mixed hyperlipidemia Paroxysmal A-fib Atherosclerotic heart disease of [place] coronary artery without angina pectoris Chest pain [...] for Visit Atherosclerotic hear t disease of [place] coronary artery without angina pectoris Chest pain Pulmonary hypertension Essential hypertension Mixed hyperlipidemia Paroxysmal A-fib Atherosclerotic heart disease of [place] coronary artery without angina pectoris Chest pain [...] CHEST PAIN, ATRIAL FIBRILLATION chest pain S/P [facility] 06/05 SUSPECTED COMMON BILE DUCT STONE, UTI [...] coronary artery Pulmonary hypertension Chief Complaint S/P [facility] 06/05 SUSPECTED COMMON BILE DUCT STONE, UTI [...] CHEST PAIN, ATRIAL FIBRILLATION chest pain S/P [facility] 06/05 SUSPECTED COMMON BILE DUCT STONE, UTI [...] Referral Specialty Diagnoses / Procedures Referred By Contac t Referred To Contact MR IMAGING Diagnoses Fall in home, initial encounter Acute pain of left shoulder Procedures MRI SHOULDER WO IVCON LT MRI ANY JT UPPER EXTREMITY W/O CONTRAST MATRL Nanda Oliveira MD [address] [place] [id number] Mr Imaging Referral ID Status Reason Start Date Expiration Date Visits Requested Visits Authorized [id number] Authorized Auto-Generat ed Referral 12/27/2021 01/26/2023 1 1 Specialty Diagnoses / Procedures Referred By Contac t Referred To Contact Vascular Surgery Diagnoses Dusky feet Procedures CONSULT TO VASCULAR SURGERY OFFICE/OUTPATIENT [facility] MDM 60-74 MINUTES Nanda Oliveira MD [address] [place] [id number] Referral ID Status Reason Start Date Expiration Date Visits Requested Visits Authorized [id number] Authorized PCP Requested Referral 03/01/2022 03/01/2023 1 1 Specialty Diagnoses / Procedures Referred By Contac t Referred To Contact [facility] Diagnoses Type 2 diabetes mellitus with diabetic neuropathy, with long-term current use of insulin (HCC) Dusky feet Procedures PVR ANK PRESS NIRU VAS LAB NON-INVAS PHYSIOLOGIC STD EXTREMITY ART 2 LEVEL Nanda Oliveira MD [address] [place] [id number] [facility] [address] [place] [address] Referral ID Status Reason Start Date Expiration Date Visits Requested Visits Authorized [id number] Pending Review Auto-Generat ed Referral 03/01/2022 03/01/2023 1 1 Referral ID Status Reason Start Date Expiration Date Visits Requested Visits Authorized [id number] Authorized PCP Requested Referral 03/29/2022 03/29/2023 1 1 Specialty Diagnoses / Procedures Referred By Contac t Referred To Contact CT IMAGING Diagnoses Acute left flank pain Procedures CT FLANK WO IVCON CT ABD & PELVIS W/O CONTRAST Nanda Oliveira MD [address] [place] [address] Ct Imaging Referral ID Status Reason Start Date Expiration Date Visits Requested Visits Authorized [id number] Pending Review Auto-Generat ed Referral 05/01/2022 05/31/2023 1 1 Specialty Diagnoses / Procedures Referred By Contac t Referred To Contact Gastroenterology Diagnoses Incontinence of feces, unspecified fecal incontinence type Procedures CONSULT TO GASTROENTEROLOGY OFFICE/OUTPATIENT [facility] 60-74 MINUTES Nanda Oliveira MD [address] [place] [address] Referral ID Status Reason Start Date Expiration Date Visits Requested Visits Authorized [id number] Authorized PCP Requested Referral 2 07/11/2023 1 [...] section and content) DATE CREATED AUTHOR 03/11/2018 [facility] DATE CREATED AUTHOR AUTHOR'S ORGANIZ ATION 03/12/2018 [facility] DATE CREATED AUTHOR AUTHOR'S ORGANIZ ATION 12/15/2020 [facility] DATE CREATED AUTHOR AUTHOR'S ORGANIZ ATION 02/24/2022 [facility] DATE CREATED AUTHOR AUTHOR'S ORGANIZ ATION 11/23/2022 [facility] ([place]) DATE CREATED AUTHOR AUTHOR'S ORGANIZ ATION 03/07/2025 [facility] DATE CREATED AUTHOR AUTHOR'S ORGANIZ ATION 05/19/2025 [facility] DATE CREATED AUTHOR AUTHOR'S ORGANIZ ATION 05/21/2025 [facility] DATE CREATED AUTHOR AUTHOR'S ORGANIZ ATION 05/30/2025 [facility] DATE CREATED AUTHOR AUTHOR'S ORGANIZ ATION 08/02/2025 [place] Go[facility] (unrecognized section and content) Goals may [...] or prosecute any alcohol or drug abuse patient.[facility] HospitalIn the event this information is protected by the Federal Confidentiality of Alcohol and Drug Abuse Patient Records regulations: The Federal rules restrict any use of the information to criminally investigate or prosecute any alcohol or drug abuse patient.[facility] HospitalIn the event this information is protected by the Federal Confidentiality of Alcohol and Drug Abuse Patient Records regulations: The Federal rules restrict any use of the information to criminally investigate or prosecute any alcohol or drug abuse patient.[facility] HospitalIn the event this information is protected by the Federal Confidentiality of Alcohol and Drug Abuse Patient Records regulations: The Federal rules restrict any use of the information to criminally investigate or prosecute any alcohol or drug abuse patient.[facility] HospitalIn the event this information is protected by the Federal Confidentiality of Alcohol and Drug Abuse Patient Records regulations: The Federal rules restrict any use of the information to criminally investigate or prosecute any alcohol or drug abuse patient.[facility] HospitalIn the event this information is protected by the Federal Confidentiality of Alcohol and Drug Abuse Patient Records regulations: The Federal rules restrict any use of the information to criminally investigate or prosecute any alcohol or drug abuse patient.[facility] HospitalIn the event this information is protected by the Federal Confidentiality of Alcohol and Drug Abuse Patient Records regulations: The Federal rules restrict any use of the information to criminally investigate or prosecute any alcohol or drug abuse patient.[facility] HospitalIn the event this information is protected by the Federal Confidentiality of Alcohol and Drug Abuse Patient Records regulations: The Federal rules restrict any use of the information to criminally investigate or prosecute any alcohol or drug abuse patient.[facility] HospitalIn the event this information is protected by the Federal Confidentiality of Alcohol and Drug Abuse Patient Records regulations: The Federal rules restrict any use of the information to criminally investigate or prosecute any alcohol or drug abuse patient.[facility] HospitalIn the event this information is protected by the Federal Confidentiality of Alcohol and Drug Abuse Patient Records regulations: The Federal rules restrict any use of the information to criminally investigate or prosecute any alcohol or drug abuse patient.[facility] HospitalIn the event this information is protected by the Federal Confidentiality of Alcohol and Drug Abuse Patient Records regulations: The Federal rules restrict any use of the information to criminally investigate or prosecute any alcohol or drug abuse patient.[facility] HospitalIn the event this information is protected by the Federal Confidentiality of Alcohol and Drug Abuse Patient Records regulations: The Federal rules restrict any use of the information to criminally investigate or prosecute any alcohol or drug abuse patient.[facility] HospitalIn the event this information is protected by the Federal Confidentiality of Alcohol and Drug Abuse Patient Records regulations: The Federal rules restrict any use of the information to criminally investigate or prosecute any alcohol or drug abuse patient.[facility] HospitalIn the event this information is protected by the Federal Confidentiality of Alcohol and Drug Abuse Patient Records regulations: The Federal rules restrict any use of the information to criminally investigate or prosecute any alcohol or drug abuse patient.[facility] HospitalIn the event this information is protected by the Federal Confidentiality of Alcohol and Drug Abuse Patient Records regulations: The Federal rules restrict any use of the information to criminally investigate or prosecute any alcohol or drug abuse patient.[facility] HospitalIn the event this information is protected by the Federal Confidentiality of Alcohol and Drug Abuse Patient Records regulations: The Federal rules restrict any use of the information to criminally investigate or prosecute any alcohol or drug abuse patient.[facility] HospitalIn the event this information is protected by the Federal Confidentiality of Alcohol and Drug Abuse Patient Records regulations: The Federal rules restrict any use of the information to criminally investigate or prosecute any alcohol or drug abuse patient.[facility] HospitalIn the event this information is protected by the Federal Confidentiality of Alcohol and Drug Abuse Patient Records regulations: The Federal rules restrict any use of the information to criminally investigate or prosecute any alcohol or drug abuse patient.[facility] HospitalIn the event this information is protected by the Federal Confidentiality of Alcohol and Drug Abuse Patient Records regulations: The Federal rules restrict any use of the information to criminally investigate or prosecute any alcohol or drug abuse patient.[facility] HospitalIn the event this information is protected by the Federal Confidentiality of Alcohol and Drug Abuse Patient Records regulations: The Federal rules restrict any use of the information to criminally investigate or prosecute any alcohol or drug abuse patient.[facility] HospitalIn the event this information is protected by the Federal Confidentiality of Alcohol and Drug Abuse Patient Records regulations: The Federal rules restrict any use of the information to criminally investigate or prosecute any alcohol or drug abuse patient.[facility] HospitalIn the event this information is protected by the Federal Confidentiality of Alcohol and Drug Abuse Patient Records regulations: The Federal rules restrict any use of the information to criminally investigate or prosecute any alcohol or drug abuse patient.[facility] HospitalIn the event this information is protected by the Federal Confidentiality of Alcohol and Drug Abuse Patient Records regulations: The Federal rules restrict any use of the information to criminally investigate or prosecute any alcohol or drug abuse patient.[facility] HospitalIn the event this information is protected by the Federal Confidentiality of Alcohol and Drug Abuse Patient Records regulations: The Federal rules restrict any use of the information to criminally investigate or prosecute any alcohol or drug abuse patient.[facility] HospitalIn the event this information is protected by the Federal Confidentiality of Alcohol and Drug Abuse Patient Records regulations: The Federal rules restrict any use of the information to criminally investigate or prosecute any alcohol or drug abuse patient.[facility] HospitalIn the event this information is protected by the Federal Confidentiality of Alcohol and Drug Abuse Patient Records regulations: The Federal rules restrict any use of the information to criminally investigate or prosecute any alcohol or drug abuse patient.[facility] HospitalIn the event this information is protected by the Federal Confidentiality of Alcohol and Drug Abuse Patient Records regulations: The Federal rules restrict any use of the information to criminally investigate or prosecute any alcohol or drug abuse patient.[facility] HospitalIn the event this information is protected by the Federal Confidentiality of Alcohol and Drug Abuse Patient Records regulations: The Federal rules restrict any use of the information to criminally investigate or prosecute any alcohol or drug abuse patient.[facility] HospitalIn the event this information is protected by the Federal Confidentiality of Alcohol and Drug Abuse Patient Records regulations: The Federal rules restrict any use of the information to criminally investigate or prosecute any alcohol or drug abuse patient.[facility] HospitalIn the event this information is protected by the Federal Confidentiality of Alcohol and Drug Abuse Patient Records regulations: The Federal rules restrict any use of the information to criminally investigate or prosecute any alcohol or drug abuse patient.[facility] HospitalIn the event this information is protected by the Federal Confidentiality of Alcohol and Drug Abuse Patient Records regulations: The Federal rules restrict any use of the information to criminally investigate or prosecute any alcohol or drug abuse patient.[facility] HospitalIn the event this information is protected by the Federal Confidentiality of Alcohol and Drug Abuse Patient Records regulations: The Federal rules restrict any use of the information to criminally investigate or prosecute any alcohol or drug abuse patient.[facility] HospitalIn the event this information is protected by the Federal Confidentiality of Alcohol and Drug Abuse Patient Records regulations: The Federal rules restrict any use of the information to criminally investigate or prosecute any alcohol or drug abuse patient.[facility] HospitalIn the event this information is protected by the Federal Confidentiality of Alcohol and Drug Abuse Patient Records regulations: The Federal rules restrict any use of the information to criminally investigate or prosecute any alcohol or drug abuse patient.[facility] HospitalIn the event this information is protected by the Federal Confidentiality of Alcohol and Drug Abuse Patient Records regulations: The Federal rules restrict any use of the information to criminally investigate or prosecute any alcohol or drug abuse patient.[facility] HospitalIn the event this information is protected by the Federal Confidentiality of Alcohol and Drug Abuse Patient Records regulations: The Federal rules restrict any use of the information to criminally investigate or prosecute any alcohol or drug abuse patient.[facility] HospitalIn the event this information is protected by the Federal Confidentiality of Alcohol and Drug Abuse Patient Records regulations: The Federal rules restrict any use of the information to criminally investigate or prosecute any alcohol or drug abuse patient.[facility] HospitalIn the event this information is protected by the Federal Confidentiality of Alcohol and Drug Abuse Patient Records regulations: The Federal rules restrict any use of the information to criminally investigate or prosecute any alcohol or drug abuse patient.[facility] HospitalIn the event this information is protected by the Federal Confidentiality of Alcohol and Drug Abuse Patient Records regulations: The Federal rules restrict any use of the information to criminally investigate or prosecute any alcohol or drug abuse patient.[facility] HospitalIn the event this information is protected by the Federal Confidentiality of Alcohol and Drug Abuse Patient Records regulations: The Federal rules restrict any use of the information to criminally investigate or prosecute any alcohol or drug abuse patient.[facility] HospitalIn the event this information is protected by the Federal Confidentiality of Alcohol and Drug Abuse Patient Records regulations: The Federal rules restrict any use of the information to criminally investigate or prosecute any alcohol or drug abuse patient.[facility] HospitalIn the event this information is protected by the Federal Confidentiality of Alcohol and Drug Abuse Patient Records regulations: The Federal rules restrict any use of the information to criminally investigate or prosecute any alcohol or drug abuse patient.[facility] HospitalIn the event this information is protected by the Federal Confidentiality of Alcohol and Drug Abuse Patient Records regulations: The Federal rules restrict any use of the information to criminally investigate or prosecute any alcohol or drug abuse patient.[facility] HospitalIn the event this information is protected by the Federal Confidentiality of Alcohol and Drug Abuse Patient Records regulations: The Federal rules restrict any use of the information to criminally investigate or prosecute any alcohol or drug abuse patient.[facility] HospitalIn the event this information is protected by the Federal Confidentiality of Alcohol and Drug Abuse Patient Records regulations: The Federal rules restrict any use of the information to criminally investigate or prosecute any alcohol or drug abuse patient.[facility] HospitalIn the event this information is protected by the Federal Confidentiality of Alcohol and Drug Abuse Patient Records regulations: The Federal rules restrict any use of the information to criminally investigate or prosecute any alcohol or drug abuse patient.[facility] HospitalIn the event this information is protected by the Federal Confidentiality of Alcohol and Drug Abuse Patient Records regulations: The Federal rules restrict any use of the information to criminally investigate or prosecute any alcohol or drug abuse patient.[facility] HospitalIn the event this information is protected by the Federal Confidentiality of Alcohol and Drug Abuse Patient Records regulations: The Federal rules restrict any use of the information to criminally investigate or prosecute any alcohol or drug abuse patient.[facility] HospitalIn the event this information is protected by the Federal Confidentiality of Alcohol and Drug Abuse Patient Records regulations: The Federal rules restrict any use of the information to criminally investigate or prosecute any alcohol or drug abuse patient.[facility] HospitalIn the event this information is protected by the Federal Confidentiality of Alcohol and Drug Abuse Patient Records regulations: The Federal rules restrict any use of the information to criminally investigate or prosecute any alcohol or drug abuse patient.[facility] HospitalIn the event this information is protected by the Federal Confidentiality of Alcohol and Drug Abuse Patient Records regulations: The Federal rules restrict any use of the information to criminally investigate or prosecute any alcohol or drug abuse patient.[facility] HospitalIn the event this information is protected by the Federal Confidentiality of Alcohol and Drug Abuse Patient Records regulations: The Federal rules restrict any use of the information to criminally investigate or prosecute any alcohol or drug abuse patient.[facility] HospitalIn the event this information is protected by the Federal Confidentiality of Alcohol and Drug Abuse Patient Records regulations: The Federal rules restrict any use of the information to criminally investigate or prosecute any alcohol or drug abuse patient.[facility] HospitalIn the event this information is protected by the Federal Confidentiality of Alcohol and Drug Abuse Patient Records regulations: The Federal rules restrict any use of the information to criminally investigate or prosecute any alcohol or drug abuse patient.[facility] HospitalIn the event this information is protected by the Federal Confidentiality of Alcohol and Drug Abuse Patient Records regulations: The Federal rules restrict any use of the information to criminally investigate or prosecute any alcohol or drug abuse patient.[facility] HospitalIn the event this information is protected by the Federal Confidentiality of Alcohol and Drug Abuse Patient Records regulations: The Federal rules restrict any use of the information to criminally investigate or prosecute any alcohol or drug abuse patient.[facility] HospitalIn the event this information is protected by the Federal Confidentiality of Alcohol and Drug Abuse Patient Records regulations: The Federal rules restrict any use of the information to criminally investigate or prosecute any alcohol or drug abuse patient.[facility] HospitalIn the event this information is protected by the Federal Confidentiality of Alcohol and Drug Abuse Patient Records regulations: The Federal rules restrict any use of the information to criminally investigate or prosecute any alcohol or drug abuse patient.[facility] HospitalIn the event this information is protected by the Federal Confidentiality of Alcohol and Drug Abuse Patient Records regulations: The Federal rules restrict any use of the information to criminally investigate or prosecute any alcohol or drug abuse patient.[facility] HospitalIn the event this information is protected by the Federal Confidentiality of Alcohol and Drug Abuse Patient Records regulations: The Federal rules restrict any use of the information to criminally investigate or prosecute any alcohol or drug abuse patient.[facility] HospitalIn the event this information is protected by the Federal Confidentiality of Alcohol and Drug Abuse Patient Records regulations: The Federal rules restrict any use of the information to criminally investigate or prosecute any alcohol or drug abuse patient.[facility] HospitalIn the event this information is protected by the Federal Confidentiality of Alcohol and Drug Abuse Patient Records regulations: The Federal rules restrict any use of the information to criminally investigate or prosecute any alcohol or drug abuse patient.[facility] HospitalIn the event this information is protected by the Federal Confidentiality of Alcohol and Drug Abuse Patient Records regulations: The Federal rules restrict any use of the information to criminally investigate or prosecute any alcohol or drug abuse patient.[facility] HospitalIn the event this information is protected by the Federal Confidentiality of Alcohol and Drug Abuse Patient Records regulations: The Federal rules restrict any use of the information to criminally investigate or prosecute any alcohol or drug abuse patient.[facility] HospitalIn the event this information is protected by the Federal Confidentiality of Alcohol and Drug Abuse Patient Records regulations: The Federal rules restrict any use of the information to criminally investigate or prosecute any alcohol or drug abuse patient.[facility] HospitalIn the event this information is protected by the Federal Confidentiality of Alcohol and Drug Abuse Patient Records regulations: The Federal rules restrict any use of the information to criminally investigate or prosecute any alcohol or drug abuse patient.[facility] HospitalIn the event this information is protected by the Federal Confidentiality of Alcohol and Drug Abuse Patient Records regulations: The Federal rules restrict any use of the information to criminally investigate or prosecute any alcohol or drug abuse patient.[facility] HospitalIn the event this information is protected by the Federal Confidentiality of Alcohol and Drug Abuse Patient Records regulations: The Federal rules restrict any use of the information to criminally investigate or prosecute any alcohol or drug abuse patient.[facility] HospitalIn the event this information is protected by the Federal Confidentiality of Alcohol and Drug Abuse Patient Records regulations: The Federal rules restrict any use of the information to criminally investigate or prosecute any alcohol or drug abuse patient.[facility] HospitalIn the event this information is protected by the Federal Confidentiality of Alcohol and Drug Abuse Patient Records regulations: The Federal rules restrict any use of the information to criminally investigate or prosecute any alcohol or drug abuse patient.[facility] HospitalIn the event this information is protected by the Federal Confidentiality of Alcohol and Drug Abuse Patient Records regulations: The Federal rules restrict any use of the information to criminally investigate or prosecute any alcohol or drug abuse patient.[facility] HospitalIn the event this information is protected by the Federal Confidentiality of Alcohol and Drug Abuse Patient Records regulations: The Federal rules restrict any use of the information to criminally investigate or prosecute any alcohol or drug abuse patient.[facility] HospitalIn the event this information is protected by the Federal Confidentiality of Alcohol and Drug Abuse Patient Records regulations: The Federal rules restrict any use of the information to criminally investigate or prosecute any alcohol or drug abuse patient.[facility] HospitalIn the event this information is protected by the Federal Confidentiality of Alcohol and Drug Abuse Patient Records regulations: The Federal rules restrict any use of the information to criminally investigate or prosecute any alcohol or drug abuse patient.[facility] HospitalIn the event this information is protected by the Federal Confidentiality of Alcohol and Drug Abuse Patient Records regulations: The Federal rules restrict any use of the information to criminally investigate or prosecute any alcohol or drug abuse patient.[facility] HospitalIn the event this information is protected by the Federal Confidentiality of Alcohol and Drug Abuse Patient Records regulations: The Federal rules restrict any use of the information to criminally investigate or prosecute any alcohol or drug abuse patient.[facility] HospitalIn the event this information is protected by the Federal Confidentiality of Alcohol and Drug Abuse Patient Records regulations: The Federal rules restrict any use of the information to criminally investigate or prosecute any alcohol or drug abuse patient.[facility] HospitalIn the event this information is protected by the Federal Confidentiality of Alcohol and Drug Abuse Patient Records regulations: The Federal rules restrict any use of the information to criminally investigate or prosecute any alcohol or drug abuse patient.[facility] Reason for Visit (unrecogniz ed section [...] Patient Specialty Diagnoses / Procedures Referred By Sarah jerome Referred To Contact Vascular Surgery Diagnoses Dusky feet Procedures CONSULT TO VASCULAR SURGERY OFFICE/OUTPATIENT NEW HIGH MDM 60-74 MINUTES Nanda Oliveira MD [address] [place] [address] Referral ID Status Reason Start Date Expiration Date V isits Requested Visits Authorized [id number] Closed PCP Requested Referral 03/29/2022 03/29/2023 1 [...] Foot Care Swelling Reason Comments Faxed to [facility] Care Teams (unrecognized sec tion and content) Title I Paraprofessional Relationship Specialty Start Date End Date Nanda Oliveira MD [address] [place], [place] [id number] PCP - General Family Practice 06/24/16 Daniel Ford [address] [place], [place] [address] Pain Management 11/14/17 Bart Blas [address] [place], [place] [address] Physician Cardiology 01/14/19 (Hist), [facility] Supplies Durable Medical Equipment Provider 07/05/19 Shaquille Finley [address] [place], [place] [id number] Consulting Anesthesiology 01/20/20 Soheila Bhakta MD [address] [place] [address] Consulting Dermatology 03/10/20 [facility] 06/26/16 Maureen Mccarty 07/12/16 [facility] 10/28/16 [facility] Physician Cardiology 11/14/17 [facility] 11/14/17 Yelena 03/03/19 Lou Gonzalez 01/20/19 Keara Ayers 02/20/17 Title I Paraprofessional Relationship Specialty Start Date End Date Nanda Oliveira MD [address] [place], [place] [id number] PCP - General Family Practice 06/24/16 Daniel Ford [address] [place] [address] Pain Management 11/14/17 Bart Blas [address] [place], [place] [address] Physician Cardiology 01/14/19 (Hist), [facility] Medical Supplies Durable Medical Equipment Provider 07/05/19 Shaquille Finley [address] [place], [place] [phone] Consulting Anesthesiology 01/20/20 Soheila Bhakta MD [address], [place] [id number] Consulting Dermatology 03/10/20 [facility] 06/26/16 Maureen Mccarty 07/12/16 [facility] 10/28/16 [facility] Physician Cardiology 11/14/17 [facility] 11/14/17 [facility] 03/03/19 Lou Gonzalez 01/20/19 Keara Ayers 02/20/17 Title I Paraprofessional Relationship Specialty Start Date End Date Nanda Oliveira MD [address] [place], [place] [id number] PCP - General Family Practice 06/24/16 Daniel Ford [address] [place], [place] [address] Pain Management 11/14/17 Bart Blas [address] [place], [place] [address] Physician Cardiology 01/14/19 (Hist), [facility] Medical Supplies Durable Medical Equipment Provider 07/05/19 Shaquille Finley [address] [place], [place] [id number] Consulting Anesthesiology 01/20/20 Soheila Bhakta MD [address] [place] [address] Consulting Dermatology 03/10/20 [facility] 06/26/16 Maureen Mccarty 07/12/16 [facility] 10/28/16 [facility] Physician Cardiology 11/14/17 [facility] 11/14/17 Yelena 03/03/19 Lou Gonzalez 01/20/19 Keara Ayers 02/20/17 Title I Paraprofessional Relationship Specialty Start Date End Date Nanda Oliveira MD [address] [place], [place] [id number] PCP - General Family Practice 06/24/16 Daniel Ford [address] [place], [place] [id number] Pain Management 11/14/17 Bart Blas [address] [place], [place] [address] Physician Cardiology 01/14/19 (Hist), [facility] Durable Medical Equipment Provider 07/05/19 Shaquille Finley [address] [place], [place] [id number] Consulting Anesthesiology 01/20/20 Soheila Bhakta MD [address], [place] [phone] Consulting Dermatology 03/10/20 [facility] 06/26/16 Maureen Mccarty 07/12/16 [facility] 10/28/16 [facility] Physician Cardiology 11/14/17 [facility] 11/14/17 [facility] 03/03/19 Lou Gonzalez 01/20/19 Keara Ayers 02/20/17 Title I Paraprofessional Relationship Specialty Start Date End Date Nanda Oliveira MD [address] [place] [address] PCP - General Family Practice 06/24/16 Daniel Ford [address] [place], [place] [id number] Pain Management 11/14/17 Bart Blas [address] [place] [address] Physician Cardiology 01/14/19 (Hist), [facility] Durable Medical Equipment Provider 07/05/19 Shaquille Finley [address] [place] [address] Consulting Anesthesiology 01/20/20 Soheila Bhakta MD [address] [place] [address] Consulting Dermatology 03/10/20 [facility] 06/26/16 Maureen Mccarty 07/12/16 [facility] 10/28/16 [facility] Physician Cardiology 11/14/17 [facility] 11/14/17 Yelena 03/03/19 Lou Gonzalez 01/20/19 Keara Ayers 02/20/17 Title I Paraprofessional Relationship Specialty Start Date End Date Nanda Oliveira MD [address] [place] [address] PCP - General Family Practice 06/24/16 Daniel Ford [address] [place] [address] Pain Management 11/14/17 Wan, Bart S [address] [place], [place] [id number] Physician Cardiology 01/14/19 (Hist), [facility] Durable Medical Equipment Provider 07/05/19 Shaquille Finley [address] [place], [place] [id number] Consulting Anesthesiology 01/20/20 Soheila Bhakta MD [address], [place] [id number] Consulting Dermatology 03/10/20 [facility] 06/26/16 Maureen Mccarty 07/12/16 [facility] 10/28/16 [facility] Physician Cardiology 11/14/17 [facility] 11/14/17 Yelena 03/03/19 Lou Gonzalez 01/20/19 Keara Ayers 02/20/17 Title I Paraprofessional Relationship Specialty Start Date End Date Nanda Oliveira MD [address] [place], [place] [id number] PCP - General Family Practice 06/24/16 Daniel Ford [address] [place] [address] Pain Management 11/14/17 Wan, Bart S [address] [place], [place] [id number] Physician Cardiology 01/14/19 (Hist), [facility] Durable Medical Equipment Provider 07/05/19 Shaquille Finley Luevano [address] [place], [place] [address] Consulting Anesthesiology 01/20/20 Soheila Bhakta MD [address], [place] [address] Consulting Dermatology 03/10/20 [facility] 06/26/16 Maureen Mccarty 07/12/16 [facility] 10/28/16 [facility] Physician Cardiology 11/14/17 [facility] 11/14/17 Yel[facility] 03/03/19 Lou Gonzalez 01/20/19 Keara Ayers 02/20/17 Title I Paraprofessional Relationship Specialty Start Date End Date Nanda Oliveira MD [address] [place], [place] [id number] PCP - General Family Practice 06/24/16 Daniel Ford [address] [place] [address] Pain Management 11/14/17 Bart Blas [address] [place] [address] Physician Cardiology 01/14/19 (Hist), [facility] Durable Medical Equipment Provider 07/05/19 Shaquille Finley Luevano [address] [place], [place] [phone] Consulting Anesthesiology 01/20/20 Soheila Bhakta MD [address], [place] [id number] Consulting Dermatology 03/10/20 [facility] 06/26/16 Maureen Mccarty 07/12/16 [facility] 10/28/16 [facility] Physician Cardiology 11/14/17 [facility] 11/14/17 Yelena 03/03/19 Lou Carlos 01/20/19 Keara Ayers 02/20/17 Title I Paraprofessional Relationship Specialty Start Date End Date Nanda Oliveira MD [address] [place], [place] [id number] PCP - General Family Practice 06/24/16 Daniel Ford [address] [place] [address] Pain Management 11/14/17 Bart Blas [address] [place], [place] [address] Physician Cardiology 01/14/19 (Hist), [facility] Medical Supplies Durable Medical Equipment Provider 07/05/19 Shaquille Finley [address] [place], [place] [address] Consulting Anesthesiology 01/20/20 Soheila Bhakta MD [address], [place] [id number] Consulting Dermatology 03/10/20 [facility] 06/26/16 Maureen Mccarty 07/12/16 [facility] 10/28/16 [facility] Physician Cardiology 11/14/17 [facility] 11/14/17 Yelena 03/03/19 Lou Gonzalez 01/20/19 Keara Ayers 02/20/17 Title I Paraprofessional Relationship Specialty Start Date End Date Nanda Oliveira MD [address] [place], [place] [address] PCP - General Family Practice 06/24/16 Daniel Ford [address] [place] [address] Pain Management 11/14/17 Bart Blas [address] [place], [place] [address] Physician Cardiology 01/14/19 (Hist), [facility] Medical Supplies Durable Medical Equipment Provider 07/05/19 Shaquille Finley [address] [place] [id number] Consulting Anesthesiology 01/20/20 Soheila Bhakta MD [address] [place] [address] Consulting Dermatology 03/10/20 [facility] 06/26/16 Maureen Mccarty 07/12/16 [facility] 10/28/16 [facility] Physician Cardiology 11/14/17 [facility] 11/14/17 [facility] 03/03/19 Lou Gonzalez 01/20/19 Keara Ayers 02/20/17 Title I Paraprofessional Relationship Specialty Start Date End Date Nanda Oliveira MD [address] [place], [place] [id number] PCP - General Family Practice 06/24/16 Daniel Ford [address] [place], [place] [address] Pain Management 11/14/17 WanPhilip weinsteinril S [address] [place], [place] [id number] Physician Cardiology 01/14/19 (Hist), [facility] Durable Medical Equipment Provider 07/05/19 Shaquille Finley [address] [place], [place] [id number] Consulting Anesthesiology 01/20/20 Soheila Bhakta MD [address] [place] [address] Consulting Dermatology 03/10/20 [facility] 06/26/16 Maureen Mccarty 07/12/16 [facility] 10/28/16 [facility] Physician Cardiology 11/14/17 [facility] 11/14/17 [facility] 03/03/19 Lou Gonzalez 01/20/19 Keara Ayers 02/20/17 Title I Paraprofessional Relationship Specialty Start Date End Date Nanda Oliveira MD [address] [place], [place] [id number] PCP - General Family Practice 06/24/16 Daniel Ford [address] [place], [place] [id number] Pain Management 11/14/17 Bart Blas [address] [place], [place] [address] Physician Cardiology 01/14/19 (Hist), [facility] Durable Medical Equipment Provider 07/05/19 Shaquille Finley [address] [place] [address] Consulting Anesthesiology 01/20/20 Soheila Bhakta MD [address], [place] [id number] Consulting Dermatology 03/10/20 [facility] 06/26/16 Maureen Mccarty 07/12/16 [facility] 10/28/16 [facility] Physician Cardiology 11/14/17 [facility] 11/14/17 Yelena 03/03/19 Lou Gonzalez 01/20/19 Keara Ayers 02/20/17 Title I Paraprofessional Relationship Specialty Start Date End Date Nanda Oliveira MD [address] [place] [address] PCP - General Family Practice 06/24/16 Daniel Ford [address] [place], [place] [phone] Pain Management 11/14/17 Wan, Jumping Branch S [address] [place], [place] [address] Physician Cardiology 01/14/19 (Hist), [facility] Durable Medical Equipment Provider 07/05/19 Shaquille Finley [address] [place] [id number] Consulting Anesthesiology 01/20/20 Soheila Bhakta MD [address] [place] [address] Consulting Dermatology 03/10/20 [facility] 06/26/16 Maureen Mccarty 07/12/16 [facility] 10/28/16 [facility] Physician Cardiology 11/14/17 [facility] 11/14/17 Yelena 03/03/19 Lou Gonzalez 01/20/19 Keara Ayers 02/20/17 Title I Paraprofessional Relationship Specialty Start Date End Date Nanda Oliveira MD [address] [place], [place] [id number] PCP - General Family Practice 06/24/16 Daniel Ford [address] [place], [place] [phone] Pain Management 11/14/17 Wan, Jumping Branch S [address] [place], [place] [address]- Physician Cardiology 01/14/19 (Hist), [facility] Durable Medical Equipment Provider 07/05/19 Shaquille Finley [address] [place], [place] [address] Consulting Anesthesiology 01/20/20 Soheila Bhakta MD [address], [place] [id number] Consulting Dermatology 03/10/20 [facility] 06/26/16 Maureen Mccarty 07/12/16 [facility] 10/28/16 [facility] Physician Cardiology 11/14/17 [facility] 11/14/17 Yelena 03/03/19 Lou Gonzalez 01/20/19 Keara Ayers 02/20/17 Title I Paraprofessional Relationship Specialty Start Date End Date Nanda Oliveira MD [address] [place], [place] [address] PCP - General Family Medicine 06/24/16 Daniel Ford [address] [place] [address] Pain Management 11/14/17 Bart Blas [address] [place] [address] Physician Cardiology 01/14/19 (Hist), [facility] Medical Supplies Durable Medical Equipment Provider 07/05/19 Shaquille Finley Bassem [address] [place], [place] [phone] Consulting Anesthesiology 01/20/20 Soheila Bhakta MD [address], [place] [id number] Consulting Dermatology 03/10/20 [facility] 06/26/16 Maureen Mccarty 07/12/16 [facility] 10/28/16 [facility] Physician Cardiology 11/14/17 [facility] 11/14/17 Yelena 03/03/19 Lou Gonzalez 01/20/19 Keara Ayers 02/20/17 Title I Paraprofessional Relationship Specialty Start Date End Date Nanda Oliveira MD [address] [place], [place] [id number] PCP - General Family Medicine 06/24/16 Daniel Ford [address] [place] [address] Pain Management 11/14/17 Bart Blas [address] [place], [place] [address] Physician Cardiology 01/14/19 (Hist), [facility] Medical Supplies Durable Medical Equipment Provider 07/05/19 Shaquille Finley [address] [place], [place] 467181 Consulting Anesthesiology 01/20/20 Soheila Bhakta MD [address], [place] 1423322 Consulting Dermatology 03/10/20 [facility] 06/26/16 Maureen Mccarty 07/12/16 [facility] 10/28/16 [facility] Physician Cardiology 11/14/17 [facility] 11/14/17 [facility] 03/03/19 Lou Gonzalez 01/20/19 Marylisa Ayers 02/20/17 Title I Paraprofessional Relationship Specialty Start Date End Date Nanda Oliveira MD [address] [place], [place] [id number] PCP - General Family Medicine 06/24/16 Daniel Ford [address] [place], [place] 753161 Pain Management 11/14/17 Bart Blas [address] [place], [place] [id number] Physician Cardiology 01/14/19 (Hist), [facility] Durable Medical Equipment Provider 07/05/19 Shaquille Finley [address], [place] [phone] Consulting Anesthesiology 01/20/20 Soheila Bhakta MD [address] [place] [address] Consulting Dermatology 03/10/20 [facility] 06/26/16 Maureen Mccatry 07/12/16 [facility] 10/28/16 [facility] Physician Cardiology 11/14/17 [facility] 11/14/17 [facility] 03/03/19 Lou Gonzalez 01/20/19 Keara Ayers 02/20/17 Title I Paraprofessional Relationship Specialty Start Date End Date Nanda Oliveira MD [address] [place], [place] [id number] PCP - General Family Medicine 06/24/16 Daniel Ford [address] [place], [place] [id number] Pain Management 11/14/17 Wan, Bart S [address] [place], [place] 20994691 Physician Cardiology 01/14/19 (Hist), [facility] Durable Medical Equipment Provider 07/05/19 Shaquille Finley [address], [place] [phone] Consulting Anesthesiology 01/20/20 Soheila Bhakta MD [address], [place] 1309122 Consulting Dermatology 03/10/20 [facility] 06/26/16 Maureen Mccarty 07/12/16 [facility] 10/28/16 [facility] Physician Cardiology 11/14/17 [facility] 11/14/17 [facility] 03/03/19 Lou Gonzalez 01/20/19 Keara Ayers 02/20/17 Title I Paraprofessional Relationship Specialty Start Date End Date Nanda Oliveira MD [address] [place], [place] [id number] PCP - General Family Medicine 06/24/16 Daniel Ford [address] [place], [place] [id number] Pain Management 11/14/17 Wan, Jumping Branch S [address] [place], [place] 39082691 Physician Cardiology 01/14/19 (Hist), [facility] Medical Supplies Durable Medical Equipment Provider 07/05/19 Shaquille Finley [address], [place] [phone] Consulting Anesthesiology 01/20/20 Soheila Bhakta MD [address] [place] [address] Consulting Dermatology 03/10/20 [facility] 06/26/16 Maureen Mccarty 07/12/16 [facility] 10/28/16 [facility] Physician Cardiology 11/14/17 [facility] 11/14/17 [facility] 03/03/19 Lou Gonzalez 01/20/19 Keara Ayers 02/20/17 Title I Paraprofessional Relationship Specialty Start Date End Date Nanda Oliveira MD [address] [place], [place] [id number] PCP - General Family Medicine 06/24/16 Daniel Ford [address] [place], [place] [id number] Pain Management 11/14/17 Wan, Bart S [address] [place], [place] 286008 086- Physician Cardiology 01/14/19 (Hist), [facility] Durable Medical Equipment Provider 07/05/19 Shaquille Finley [address] [place], [place] 548341 Consulting Anesthesiology 01/20/20 Soheila Bhakta MD [address] [place] [address] Consulting Dermatology 03/10/20 [facility] 06/26/16 Maureen Mccarty 07/12/16 [facility] 10/28/16 [facility] Physician Cardiology 11/14/17 [facility] 11/14/17 [facility] 03/03/19 Lou Gonzalez 01/20/19 Keara Ayers 02/20/17 Title I Paraprofessional Relationship Specialty Start Date End Date Nanda Oliveira MD [address] [place], [place] [id number] PCP - General Family Medicine 06/24/16 Daniel Ford [address] [place] [address] Pain Management 11/14/17 Wan, Jumping Branch S [address] [place] [address] Physician Cardiology 01/14/19 (Hist), [facility] Durable Medical Equipment Provider 07/05/19 Shaquille Finley [address] [place], [place] 174821 Consulting Anesthesiology 01/20/20 Soheila Bhakta MD [address], [place] 6761722 Consulting Dermatology 03/10/20 [facility] 06/26/16 Maureen Mccarty 07/12/16 [facility] 10/28/16 [facility] Physician Cardiology 11/14/17 [facility] 11/14/17 [facility] 03/03/19 Lou Gonzalez 01/20/19 Keara Ayers 02/20/17 Title I Paraprofessional Relationship Specialty Start Date End Date Nanda Oliveira MD [address] [place], [place] [id number] PCP - General Family Medicine 06/24/16 Daniel Ford [address] [place] [address] Pain Management 11/14/17 Bart Blas [facility] [address] [place] [address] Physician Cardiology 01/14/19 (Hist), [facility] Durable Medical Equipment Provider 07/05/19 Shaquille Finley [address] [place], [place] [phone] Consulting Anesthesiology 01/20/20 Soheila Bhakta MD [address], [place] 1705322 Consulting Dermatology 03/10/20 [facility] 06/26/16 Maureen Mccarty 07/12/16 [facility] 10/28/16 [facility] Physician Cardiology 11/14/17 [facility] 11/14/17 Y[facility] 03/03/19 Lou Carlos 01/20/19 Keara Ayers 02/20/17 Title I Paraprofessional Relationship Specialty Start Date End Date Nanda Oliveira MD [address] [place], [place] 304521 PCP - General Family Medicine 06/24/16 Daniel Ford [address] [place], [place] 933011 Pain Management 11/14/17 Bart Blas [address] [place], [place] 587041 Physician Cardiology 01/14/19 (Hist), [facility] Durable Medical Equipment Provider 07/05/19 Shaquille Finley [address] [place], [place] [phone] Consulting Anesthesiology 01/20/20 Soheila Bhakta MD [address] [place] [address] Consulting Dermatology 03/10/20 [facility] 06/26/16 Maureen Mccarty 07/12/16 [facility] 10/28/16 [facility] Physician Cardiology 11/14/17 [facility] 11/14/17 [facility] 03/03/19 Loudeidra Gonzalez 01/20/19 Keara Boltonchon 02/20/17 Title I Paraprofessional Relationship Specialty Start Date End Date Nanda Oliveira MD [address] [place], [place] [id number] PCP - General Family Medicine 06/24/16 Daniel Ford [address] [place] [address] Pain Management 11/14/17 Wan, Jumping Branch S [address] [place], [place] 554651 Physician Cardiology 01/14/19 (Hist), [facility] [address] [place] [address] Durable Medical Equipment Provider 07/05/19 Shaquille Finley [address] [place] [address] [id number] Consulting Anesthesiology 01/20/20 Soheila Bhakta MD [address] [place] [address] Consulting Dermatology 03/10/20 [facility] 06/26/16 Maureen Mccarty 07/12/16 [facility] 10/28/16 [facility] Physician Cardiology 11/14/17 [facility] 11/14/17 [facility] 03/03/19 Lou Gonzalez 01/20/19 Keara Ayers 02/20/17 Title I Paraprofessional Relationship Specialty Start Date End Date Nanda Oliveira MD [address] [place], [place] 502301 PCP - General Family Medicine 06/24/16 Daniel Ford [address] [place] [address] Pain Management 11/14/17 Wan, Bart S [address] [place], [place] 220651 Physician Cardiology 01/14/19 (Hist), [facility] [address] [address] Durable Medical Equipment Provider 07/05/19 Shaquille Finely [address] [place], [place] 046971 Consulting Anesthesiology 01/20/20 Soheila Bhakta MD [address] [place] [address] Consulting Dermatology 03/10/20 [facility] 06/26/16 Maureen Mccarty 07/12/16 [facility] 10/28/16 [facility] Physician Cardiology 11/14/17 [facility] 11/14/17 [facility] 03/03/19 Lou Gonzalez 01/20/19 Keara Ayers 02/20/17 Title I Paraprofessional Relationship Specialty Start Date End Date Nanda Oliveira MD [address] [place], [place] 111271 PCP - General Family Medicine 06/24/16 Daniel Ford [address] [place] [address] Pain Management 11/14/17 Wan, Bart S [address] [place] [address] Physician Cardiology 01/14/19 (Hist), [facility] [address] [address] Durable Medical Equipment Provider 07/05/19 Shaquille Finley [address], [place] [phone] Consulting Anesthesiology 01/20/20 Soheila Bhakta MD [address], [place] 7704122 Consulting Dermatology 03/10/20 [facility] 06/26/16 Maureen Mccarty 07/12/16 [facility] 10/28/16 [facility] Physician Cardiology 11/14/17 [facility] 11/14/17 [facility] 03/03/19 Lou Gonzalez 01/20/19 Keara Ayers 02/20/17 Title I Paraprofessional Relationship Specialty Start Date End Date Nanda Oliveira MD [address] [place], [place] [id number] PCP - General Family Medicine 06/24/16 Daniel Ford [address] [place] [address] Pain Management 11/14/17 Wan, Bart S [address] [place] [address] Physician Cardiology 01/14/19 (Hist), [facility] [address] [address] Durable Medical Equipment Provider 07/05/19 Malia Shaquille Luevano [address], [place] [phone] Consulting Anesthesiology 01/20/20 Soheila Bhakta MD [address], [place] 1555922 Consulting Dermatology 03/10/20 [facility] 06/26/16 Maureen Mccarty 07/12/16 [facility] 10/28/16 [facility] Physician Cardiology 11/14/17 [facility] 11/14/17 [facility] 03/03/19 Lou Gonzalez 01/20/19 Keara Ayers 02/20/17 Title I Paraprofessional Relationship Specialty Start Date End Date Nanda Oliveira MD [address] [place], [place] [id number] PCP - General Family Medicine 06/24/16 Daniel Ford [address] [place] [address] Pain Management 11/14/17 Wan, Bart S [address] [place], [place] 084831 Physician Cardiology 01/14/19 (Hist), [facility] [address] [facility] [address] [address] Durable Medical Equipment Provider 07/05/19 Shaquille Finley [address] [place], [place] 875831 Consulting Anesthesiology 01/20/20 Soheila Bhakta MD [address] [place] [address] Consulting Dermatology 03/10/20 [facility] 06/26/16 Maureen Mccarty 07/12/16 [facility] 10/28/16 [facility] Physician Cardiology 11/14/17 [facility] 11/14/17 Y[facility] 03/03/19 Lou Gonzalez 01/20/19 Keara Ayers 02/20/17 Title I Paraprofessional Relationship Specialty Start Date End Date Nanda Oliveira MD [address] [place], [place] [id number] PCP - General Family Medicine 06/24/16 Daniel Ford [address] [facility] 3 [place] [address] Pain Management 11/14/17 Wan, Bart S [address] [address] Physician Cardiology 01/14/19 (Hist), [facility] [address] [facility] [address] [address] Durable Medical Equipment Provider 07/05/19 Shaquille Finley [address] [place], [place] 698361 Consulting Anesthesiology 01/20/20 Soheila Bhakta MD [address] [place] [address] Consulting Dermatology 03/10/20 [facility] 06/26/16 Maureen Mccarty 07/12/16 [facility] [...] Primary Care Provider Acti ve Dr. Kodi Aege MD Emergency Provider Active Dr. James Cohn [...] Uma Vela PA, PA Attending Provider Active Title I Paraprofessional Relationship Specialty Start Date End Date Nanda Oliveira MD [address] [place] [address] PCP - General Family Medicine 06/24/16 Daniel Ford [address] [place] [address] Pain Management 11/14/17 Bart Blas [address] [place] [address] Physician Cardiology 01/14/19 (Hist), [facility] [address] [address] Durable Medical Equipment Provider 07/05/19 Shaquille Finley [address] [place] [address] Consulting Anesthesiology 01/20/20 Soheila Bhakta MD [address], [place] 6278722 Consulting Dermatology 03/10/20 [facility] 06/26/16 Maureen Mccarty 07/12/16 [facility] [...] Provider, Ref erring Provider Active Zaid Fish AUTOMATIC PROFILE SANDER OPERATOR, AUTOMATIC PROFILE SANDER OPERATOR-C Attending Provider Active Team Status: Active Member [...] PA-C Other Provider Active Dr. Yared Fernández , DO Other Provider Active Team Status: Active Member Role Status Dates Dr. Bhupendra Oliveira MD Primary Care Provider Acti ve Dr. Arlyn Leslie MD Admit Provider, Other Provider Active Pancho MORA PA-C Other Provider Active Dr. Yared Fernández , DO Attending Provider, Other Pro vider Active Team Status: Inactive Member Role Status Dates Dr. Bhupendra Oliveira MD Primary Care Provider Acti ve Dr. Maryanne Castro , DO Emergency Provider Active Title I Paraprofessional Relationship Specialty Start Date End Date Nanda Oliveira MD [address] [place], [place] 084861 PCP - General Family Medicine 06/24/16 Daniel Ford [address] [place] [address] Pain Management 11/14/17 Wan, Bart S [address] [place] [address] Physician Cardiology 01/14/19 (Hist), [facility] Supplies [address] [place] [address] Durable Medical Equipment Provider 07/05/19 Shaquille Finley Luevano [address] [place] [address] Consulting Anesthesiology 01/20/20 Soheila Bhakta MD [address], [place] 9092722 Consulting Dermatology 03/10/20 [facility] 06/26/16 Maureen Mccarty 07/12/16 [facility] 10/28/16 [facility] Physician Cardiology 11/14/17 [facility] 11/14/17 [facility] 03/03/19 Lou Gonzalez 01/20/19 Keara Ayers 02/20/17 Title I Paraprofessional Relationship Specialty Start Date End Date Nanda Oliveira MD [address] [place], [place] 589501 PCP - General Family Medicine 06/24/16 Daniel Ford [address] [place] [address] Pain Management 11/14/17 Philip Blasril S [address] [place] [address] 282131 Physician Cardiology 01/14/19 (Hist), [facility] Supplies [address] [place] [address] Durable Medical Equipment Provider 07/05/19 Shaquille Finley [address] [place], [place] [phone] Consulting Anesthesiology 01/20/20 Soheila Bhakta MD [address] [place] [address] Consulting Dermatology 03/10/20 [facility] 06/26/16 Maureen Mccarty 07/12/16 [facility] 10/28/16 [facility] Physician Cardiology 11/14/17 [facility] 11/14/17 [facility] 03/03/19 Lou Gonzalez 01/20/19 Keara Ayers 02/20/17 Title I Paraprofessional Relationship Specialty Start Date End Date Nanda Oliveira MD [address] [place] [address] PCP - General Family Medicine 06/24/16 Daniel Ford [address] [place] [address] Pain Management 11/14/17 Wan, Jumping Branch S [address] [place] [address] Physician Cardiology 01/14/19 (Hist), [facility] [address] [address] Durable Medical Equipment Provider 07/05/19 Shaquille Finley [address] [place], [place] [phone] Consulting Anesthesiology 01/20/20 Soheila Bhakta MD [address], [place] 2611622 Consulting Dermatology 03/10/20 [facility] 06/26/16 Maureen Mccarty 07/12/16 [facility] 10/28/16 [facility] Physician Cardiology 11/14/17 [facility] 11/14/17 [facility] 03/03/19 Lou Gonzalez 01/20/19 Keara Ayers 02/20/17 Team Status: Inactive Member Role Status Dates Dr. Bhupendra Oliveira MD Primary Care Provider Christina Castro DO Attending Provider, Emergency P jose Active Team Status: Inactive Member Role Status Dates Dr. Bhupendra Oliveira MD Primary Care Provider Acti ve Dr. Thai Khan , DO Emergency Provider Active Team Status: Inactive Member Role Status Dates Dr. Bhupendra Oliveira MD Primary Care Provider Acti ve Dr. Alex Regalado , DO Emergency Provider Active Title I Paraprofessional Relationship Specialty Start Date End Date Nanda Oliveira MD [address] [place], [place] 366291 PCP - General Family Medicine 06/24/16 Daniel Ford [address] [place] [address] Pain Management 11/14/17 Wan, Jumping Branch S [address] [place] [address] Physician Cardiology 01/14/19 (Hist), [facility] [address] [place] [address] Durable Medical Equipment Provider 07/05/19 Shaquille Finley [address] [place] [address] Consulting Anesthesiology 01/20/20 Soheila Bhakta MD [address], [place] 4431222 Consulting Dermatology 03/10/20 [facility] 06/26/16 Maureen Mccarty 07/12/16 [facility] 10/28/16 [facility] Physician Cardiology 11/14/17 [facility] 11/14/17 [facility] 03/03/19 Lou Gonzalez 01/20/19 Keara Ayers 02/20/17 Title I Paraprofessional Relationship Specialty Start Date End Date Nanda Oliveira MD [address] [place], [place] 250251 PCP - General Family Medicine 06/24/16 Daniel Ford [address] [facility] 3 [place] [address] Pain Management 11/14/17 Wan, Jumping Branch S [address] [facility] [address] [place] [address] Physician Cardiology 01/14/19 (Hist), [facility] [address] [facility] [address] [address] Durable Medical Equipment Provider 07/05/19 Shaquille Finley [address] [place], [place] [phone] Consulting Anesthesiology 01/20/20 Soheila Bhakta MD [address], [place] 0143222 Consulting Dermatology 03/10/20 [facility] 06/26/16 Maureen Mccarty 07/12/16 [facility] 10/28/16 [facility] Physician Cardiology 11/14/17 [facility] 11/14/17 Y[facility] 03/03/19 Lou Gonzalez 01/20/19 Keara Ayers 02/20/17 Title I Paraprofessional Relationship Specialty Start Date End Date Nanda Oliveira MD [address] [place], [place] [id number] PCP - General Family Medicine 06/24/16 Daniel Ford [address] [place] [address] Pain Management 11/14/17 Wan, Jumping Branch S [address] [address] Physician Cardiology 01/14/19 (Hist), [facility] [address] [facility] [address] [address] Durable Medical Equipment Provider 07/05/19 Shaquille Finley [address] [place], [place] [phone] Consulting Anesthesiology 01/20/20 Soheila Bhakta MD [address] [place] [address] Consulting Dermatology 03/10/20 [facility] 06/26/16 Maureen Mccarty 07/12/16 [facility] 10/28/16 [facility] Physician Cardiology 11/14/17 [facility] 11/14/17 Y[facility] 03/03/19 Lou Gonzalez 01/20/19 Keara Ayers 02/20/17 Title I Paraprofessional Relationship Specialty Start Date End Date Nanda Oliveira MD [address] [place], [place] [id number] PCP - General Family Medicine 06/24/16 Daniel Ford [address] [place] [address] Pain Management 11/14/17 Wan, Jumping Branch S [address] [place], [place] 649241 Physician Cardiology 01/14/19 (Hist), [facility] [address] [place] [address] Durable Medical Equipment Provider 07/05/19 Shaquille Finley [address] [place], [place] [id number] Consulting Anesthesiology 01/20/20 Soheila Bhakta MD [address], [place] 8829622 Consulting Dermatology 03/10/20 [facility] 06/26/16 Maureen Mccarty 07/12/16 [facility] 10/28/16 [facility] Physician Cardiology 11/14/17 [facility] 11/14/17 Y[facility] 03/03/19 Lou Gonzalez 01/20/19 Keaar Ayers 02/20/17 Title I Paraprofessional Relationship Specialty Start Date End Date Nanda Oliveira MD [address] [place], [place] [id number] PCP - General Family Medicine 06/24/16 Daniel Ford [address] [facility] 3 [place], [place] [id number] Pain Management 11/14/17 Wan, Bart S [address] [place] [address] Physician Cardiology 01/14/19 (Hist), [facility] [address] [place] [address] Durable Medical Equipment Provider 07/05/19 Shaquille Finley [address] [place], [place] 480071 Consulting Anesthesiology 01/20/20 Soheila Bhakta MD [address] [place] [address] Consulting Dermatology 03/10/20 [facility] 06/26/16 Maureen Mccarty 07/12/16 [facility] 10/28/16 [facility] Physician Cardiology 11/14/17 [facility] 11/14/17 Yel[facility] 03/03/19 Lou Gonzalez 01/20/19 Keara Ayers 02/20/17 Team Status: Inactive Member Role Status Dates Dr. Bhupendra Oliveira MD Primary Care Provider Acti ve Dr. Thai Khan , Attending Provider, Emergency Pr ovider Active Team Status: Inactive Member Role Status Dates Dr. Bhupendra Oliveira MD Primary Care Provider Acti ve Dr. Alex Regalado , Attending Provider, Emergency Provider Active Title I Paraprofessional Relationship Specialty Start Date End Date Nanda Oliveira MD [address] [place], [place] 725101 PCP - General Family Medicine 06/24/16 Daniel Ford [address] [facility] 3 [place] [address] Pain Management 11/14/17 Bart Blas [address] 7[address] Physician Cardiology 01/14/19 (Hist), [facility] Supp[facility] [address] [address] Durable Medical Equipment Provider 07/05/19 Shaquille Finley [address] [place], [place] [phone] Consulting Anesthesiology 01/20/20 Soheila Bhakta MD [address] [place] [address] Consulting Dermatology 03/10/20 [facility] 06/26/16 Maureen Mccarty 07/12/16 [facility] 10/28/16 [facility] Physician Cardiology 11/14/17 [facility] 11/14/17 Yelena 03/03/19 Lou Gonzalez 01/20/19 Keara Ayers 02/20/17 Title I Paraprofessional Relationship Specialty Start Date End Date Nanda Oliveira MD [address] [place], [place] 187371 PCP - General Family Medicine 06/24/16 Daniel Ford [address] [id number] Pain Management 11/14/17 Bart Blas [address] [id number] Physician Cardiology 01/14/19 (Hist), [facility] [address] [place] [address] Durable Medical Equipment Provider 07/05/19 MigelShaquille redmond Bassem [address] [place] [address] 318061 Consulting Anesthesiology 01/20/20 Soheila Bhakta MD [address] [place] [address] Consulting Dermatology 03/10/20 [facility] 06/26/16 Maureen Mccarty 07/12/16 [facility] 10/28/16 [facility] Physician Cardiology 11/14/17 [facility] 11/14/17 Yelena 03/03/19 Lou Gonzalez 01/20/19 Keara Ayers 02/20/17 Title I Paraprofessional Relationship Specialty Start Date End Date Nanda Oliveira MD [address] [place], [place] [id number] PCP - General Family Medicine 06/24/16 Daniel Ford [facility] [place], [place] [id number] Pain Management 11/14/17 Bart Blas [address] [place], [place] 565331 Physician Cardiology 01/14/19 (Hist), [facility] [address] [place] [address] Durable Medical Equipment Provider 07/05/19 Scot Finleyradha Bassem [address] [place] [address] 623251 Consulting Anesthesiology 01/20/20 Soheila Bhakta MD [address] [place] [address] Consulting Dermatology 03/10/20 [facility] 06/26/16 Maureen Mccarty 07/12/16 [facility] 10/28/16 [facility] Physician Cardiology 11/14/17 [facility] 11/14/17 Yelena 03/03/19 Lou Gonzalez 01/20/19 Keara Ayers 02/20/17 Title I Paraprofessional Relationship Specialty Start Date End Date Nanda Oliveira MD [address] [place], [place] 780081 PCP - General Family Medicine 06/24/16 Daniel Ford [address] [place] [address] [address] Pain Management 11/14/17 Bart Blas [address] [place] [address] [id number] Physician Cardiology 01/14/19 (Hist), [facility] [address] [address] Durable Medical Equipment Provider 07/05/19 Shaquille Finley [address] [place], [place] 895341 Consulting Anesthesiology 01/20/20 Soheila Bhakta MD [address] [place] [address] Consulting Dermatology 03/10/20 [facility] 06/26/16 Maureen Mccarty 07/12/16 [facility] 10/28/16 [facility] Physician Cardiology 11/14/17 [facility] 11/14/17 Yelena 03/03/19 Lou Gonzalez 01/20/19 Keara Ayers 02/20/17 Team Status: Inactive Member Role Status Dates Dr. Bhupendra Oliveira MD Primary Care Provider Acti ve Dr. Maria Fernanda Moss DO Attending Provider, Emergency Pro vider Active Team Status: Inactive Member Role Status Dates Dr. Bhupendra Oliveira MD Primary Care Provider Acti ve Ed Physician Provider Emergency Provider Active Title I Paraprofessional Relationship Specialty Start Date End Date Nanda Oliveira MD [address] [place] [address] PCP - General Family Medicine 06/24/16 Daniel Ford [address] [place] [address] Pain Management 11/14/17 Bart Blas [address] [place], [place] [address] Physician Cardiology 01/14/19 (Hist), [facility] [address] [address] Durable Medical Equipment Provider 07/05/19 Shaquille Finley [address] [place], [place] [address] Consulting Anesthesiology 01/20/20 Soheila Bhakta MD [address] [place] [address] Consulting Dermatology 03/10/20 [facility] 06/26/16 Maureen Mccarty 07/12/16 [facility] 10/28/16 [facility] Physician Cardiology 11/14/17 [facility] 11/14/17 Y[facility] 03/03/19 Lou Gonzalez 01/20/19 Keara Ayers 02/20/17 Title I Paraprofessional Relationship Specialty Start Date End Date Nanda Oliveira MD [address] [place], [place] [id number] PCP - General Family Medicine 06/24/16 Daniel Ford MD [address] [facility] 3 [place], [place] [id number] Pain Management 11/14/17 Bart Blas S [address] [facility] [address] [place], [place] [address] Physician Cardiology 01/14/19 (Hist), [facility] [address] [place] [address] Durable Medical Equipment Provider 07/05/19 Shaquille Finley L[place] [place] [phone] Consulting Anesthesiology 01/20/20 Soheila Bhakta MD [address] [place] [address] Consulting Dermatology 03/10/20 [facility] 06/26/16 Maureen Mccarty 07/12/16 [facility] 10/28/16 [facility] Physician Cardiology 11/14/17 [facility] 11/14/17 [facility] 03/03/19 Lou Gonzalez 01/20/19 Keara Ayers 02/20/17 Title I Paraprofessional Relationship Specialty Start Date End Date Nanda Oliveira MD [address] [place], [place] [id number] PCP - General Family Medicine 06/24/16 Daniel Ford MD [address] [place] [address] Pain Management 11/14/17 Bart Blas [address] [place], [place] [address] Physician Cardiology 01/14/19 (Hist), [facility] [address] [address] Durable Medical Equipment Provider 07/05/19 Shaquille Finley [address] [place] [address] [phone] Consulting Anesthesiology 01/20/20 Soheila Bhakta MD [address] [place] [address] Consulting Dermatology 03/10/20 [facility] 06/26/16 Maureen Mccarty 07/12/16 [facility] [...] Primary Care Provider Acti ve Akiko Cordero AUTOMATIC PROFILE SANDER OPERATOR, AUTOMATIC PROFILE SANDER OPERATOR-C Attending Provider Active Team Status: Active Member [...] Dr. Roger Yang MD Attending Provider Active Title I Paraprofessional Relationship Specialty Start Date End Date Nanda Oliveira MD [address] [place] [address] PCP - General Family Medicine 06/24/16 Daniel Ford MD [address] [place] [address]E [address] [facility] 3 [place] [address] Pain Management 11/14/17 Bart Blas [address] [facility] [address] [place] [address] Physician Cardiology 01/14/19 (Hist), [facility] [address] [facility] [address] [place] [address] Durable Medical Equipment Provider 07/05/19 Shaquille Finley MD [address] [place] [address] [phone] Consulting Anesthesiology 01/20/20 Soheila Bhakta MD [address] [place] [address] Consulting Dermatology 03/10/20 [facility] 06/26/16 Maureen Mccarty 07/12/16 [facility] 10/28/16 [facility] Physician Cardiology 11/14/17 [facility] 11/14/17 Y[facility] 03/03/19 Lou Gonzalez 01/20/19 Keara Ayers 02/20/17 Title I Paraprofessional Relationship Specialty Start Date End Date Nanda Oliveira MD [address] [place], [place] [id number] PCP - General Family Medicine 06/24/16 Daniel Ford MD [address] [place] [address] Pain Management 11/14/17 Bart Blas MD [address] [place], [place] [address] Physician Cardiology 01/14/19 (Hist), [facility] [address] [place] [address] Durable Medical Equipment Provider 07/05/19 Shaquille Finley MD [address] [place] [address] Consulting Anesthesiology 01/20/20 Soheila Bhakta MD [address] [place] [address] Consulting Dermatology 03/10/20 [facility] 06/26/16 Maureen Mccarty 07/12/16 [facility] 10/28/16 [facility] Physician Cardiology 11/14/17 [facility] 11/14/17 Yelena 03/03/19 Lou Gonzalez 01/20/19 Keara Ayers 02/20/17 Title I Paraprofessional Relationship Specialty Start Date End Date Nanda Oliveira MD [address] [place], [place] [address] PCP - General Family Medicine 06/24/16 Daniel Ford MD [address] [facility] 3 [place] [address] Pain Management 11/14/17 Bart Blas MD [address] [place] [address] Physician Cardiology 01/14/19 (Hist), [facility] [address] [facility] [address] [place] [address] Durable Medical Equipment Provider 07/05/19 Shaquille Finley MD [address] [place] [address] Consulting Anesthesiology 01/20/20 Soheila Bhakta MD [address] [place] [address] Consulting Dermatology 03/10/20 [facility] 06/26/16 Maureen Mccarty 07/12/16 [facility] 10/28/16 [facility] Physician Cardiology 11/14/17 [facility] 11/14/17 Y[facility] 03/03/19 Lou Carlos 01/20/19 Keara Ayers 02/20/17 Title I Paraprofessional Relationship Specialty Start Date End Date Nanda Oliveira MD [address] [place] [address] PCP - General Family Medicine 06/24/16 [place] [address] [place] [address] PKY [facility] 3 [place] [address] Pain Management 11/14/17 Bart Blas MD [address] [place] [address] Physician Cardiology 01/14/19 (Hist), [facility] [address] [facility] [address] [facility] [address] [place] [address] Durable Medical Equipment Provider 07/05/19 Shaquille Finley MD [address] [place] [address] Consulting Anesthesiology 01/20/20 Soheila Bhakta MD [address] [place] [address] Consulting Dermatology 03/10/20 [facility] 06/26/16 Maureen Mathewer 07/12/16 [facility] 10/28/16 [facility] Physician Cardiology 11/14/17 [facility] [...] MD Primary Care Provider Acti ve Uma MORA, [place] Attending Provider, Referr ing Provider Active Team Status: Active Member Role Status Dates Dr. Bhupendra Oliveira MD Primary Care Provider Acti ve Dr. Eleazar Brooks MD Emergency Provider Active Dr. Yvon Wilson DO Admit Provider, Attending Pr ovider Active Title I Paraprofessional Relationship Specialty Start Date End Date Daniel Ford MD [address] [place], [place] [id number] Pain Management 11/14/17 Bart Blas MD [address] [place], [place] [id number] Physician Cardiology 01/14/19 (Hist), [facility] [address] [place] [address] Durable Medical Equipment Provider 07/05/19 Shaquille Finley MD [address] [place] [address] Consulting Anesthesiology 01/20/20 Soheila Bhakta MD [address] [place] [address] Consulting Dermatology 03/10/20 [facility] 06/26/16 Maureen Mccarty 07/12/16 [facility] 10/28/16 [facility] Physician Cardiology 11/14/17 [facility] 11/14/17 [facility] 03/03/19 Lou Gonzalez 01/20/19 Keara Ayers 02/20/17 Title I Paraprofessional Relationship Specialty Start Date End Date Daniel Ford MD [address] [place] [address] Pain Management 11/14/17 Bart Blas MD [address] [place] [address] Physician Cardiology 01/14/19 (Hist), [facility] [address] [place] [address] Durable Medical Equipment Provider 07/05/19 Shaquille Finley MD [address] [place] [address] Consulting Anesthesiology 01/20/20 Soheila Bhakta MD [address] [place] [address] Consulting Dermatology 03/10/20 [facility] 06/26/16 Maureencaitlyn Inmansier 07/12/16 [facility] 10/28/16 [facility] Physician Cardiology 11/14/17 [facility] 11/14/17 Yelena 03/03/19 Lou Carlos 01/20/19 Keara Ayers 02/20/17 Team Status: Active [...] Primary Care Provider Acti ve Dr. Eleazar Boroks MD Emergency Provider Active Dr. Yvon Wilson DO Admit Provider, Other Provid er Active Dr. Syed Montanez MD Other Provider Active Dr. Reyna Champagne MD Attending Provider, Other Provid er Active Dr. Yvon Hogan MD Other Provider Active Dr. James Cohn DO Active Team Status: Active Member Role Status Dates Dr. Bhupendra Oliveira MD Primary Care Provider Acti ve Dr. Bart Bals MD Attending Provider Active Dr. Yvon Hogan [...] Dr. Jeff Lewis DO Attending Provider Active Title I Paraprofessional Relationship Specialty Start Date End Date Daniel Ford MD [address] [place] [address] Pain Management 11/14/17 Bart Blas MD [address] [place], [place] [address] Physician Cardiology 01/14/19 (Hist), [facility] [address] [place] [address] Durable Medical Equipment Provider 07/05/19 Shaquille Finley MD [address] [place], [place] 1239[address] Consulting Anesthesiology 01/20/20 Soheila Bhakta MD [address] [place] [address] Consulting Dermatology 03/10/20 [facility] 06/26/16 Maureen Mccarty 07/12/16 [facility] 10/28/16 [facility] Physician Cardiology 11/14/17 [facility] 11/14/17 Yel[facility] 03/03/19 Lou Gonzalez 01/20/19 Keara Ayers 02/20/17 Team Status: Inactive Member Role Status Dates Dr. Dylon Murrieta MD Primary Care Provider, Attending Provider Active Title I Paraprofessional Relationship Specialty Start Date End Date Daniel Ford MD [address] [place] [address] Pain Management 11/14/17 Bart Blas MD [address] [place], [place] [id number] Physician Cardiology 01/14/19 (Hist), [facility] [address] [place] [address] Durable Medical Equipment Provider 07/05/19 Shaquille Finley MD [address] [place] [address] Consulting Anesthesiology 01/20/20 Soheila Bhakta MD [address] [place], [place] [id number] Consulting Dermatology 03/10/20 [facility] 06/26/16 Maureencaitlyn Inmansier 07/12/16 [facility] 10/28/16 [facility] Physician Cardiology 11/14/17 [facility] 11/14/17 Y[facility] 03/03/19 Lou Gonzalez 01/20/19 Keara Ayers 02/20/17 Title I Paraprofessional Relationship Specialty Start Date End Date Daneil Ford MD [address] [facility] [place] [address] Pain Management 11/14/17 Bart Blas MD [address] [place] [address] Physician Cardiology 01/14/19 (Hist), [facility] [address] [place] [address] Durable Medical Equipment Provider 07/05/19 Shaquille Finley MD [address] [place] [phone] Consulting Anesthesiology 01/20/20 Soheila Bhakta MD [address] [place], [place] [phone] Consulting Dermatology 03/10/20 [facility] 06/26/16 Maureen Mccarty 07/12/16 [facility] 10/28/16 [facility] Physician Cardiology 11/14/17 [facility] 11/14/17 Y[facility] 03/03/19 Lou Gonzalez 01/20/19 Keara Ayers 02/20/17 Title I Paraprofessional Relationship Specialty Start Date End Date Daniel Ford MD [address] [place] [address] Pain Management 11/14/17 Bart Blas MD [address] [place] [address] Physician Cardiology 01/14/19 (Hist), [facility] [address] [facility] [address] [place] [address] Durable Medical Equipment Provider 07/05/19 Shaquille Finley MD [address] [place] [phone] Consulting Anesthesiology 01/20/20 Soheila Bhakta MD [address] [place] [address] Consulting Dermatology 03/10/20 [facility] 06/26/16 Maureen Mccarty 07/12/16 [facility] 10/28/16 [facility] Physician Cardiology 11/14/17 [facility] 11/14/17 Y[facility] 03/03/19 Lou Gonzalez 01/20/19 Keara Hoangchavaruy 02/20/17 Title I Paraprofessional Relationship Specialty Start Date End Date Nanda Oliveira MD [address] [place] [address] PCP - General Family Medicine 06/24/16 08/28/23 [place] [address] [place] [address] Pain Management 11/14/17 Bart Blas MD [address] [address] Physician Cardiology 01/14/19 (Hist), [facility] [address] [facility] [address] [address] Durable Medical Equipment Provider 07/05/19 Shaquille Finley MD [address] [place] [address] Consulting Anesthesiology 01/20/20 Soheila Bhakta MD [address] [place] [address] Consulting Dermatology 03/10/20 [facility] 06/26/16 Maureen Mccarty 07/12/16 [facility] 10/28/16 [facility] Physician Cardiology 11/14/17 [facility] 11/14/17 Y[place]ena 03/03/19 Lou Gonzalez 01/20/19 Keara Ayers 02/20/17 Title I Paraprofessional Relationship Specialty Start Date End Date Nanda Oliveira MD [address] [place] [address] PCP - General Family Medicine 06/24/16 08/28/23 Daniel Ford MD [address] [address] Pain Management 11/14/17 Bart Blas MD [address] [address] Physician Cardiology 01/14/19 (Hist), [facility] [address] [address] Durable Medical Equipment Provider 07/05/19 Shaquille Finley MD [address] [place] [address] Consulting Anesthesiology 01/20/20 Soheila Bhakta MD [address] [place] [address] Consulting Dermatology 03/10/20 [facility] 06/26/16 Maureen Mccarty 07/12/16 [facility] 10/28/16 [facility] Physician Cardiology 11/14/17 [facility] 11/14/17 [facility] 03/03/19 Lou Carlos 01/20/19 Keara Ayers 02/20/17 Title I Paraprofessional Relationship Specialty Start Date End Date Nanda Oliveira MD [address] [place] [address] PCP - General Family Medicine 06/24/16 08/28/23 Daniel Ford MD [address] [facility] [address] [address] Pain Management 11/14/17 Bart Blas MD [address] [place] [address] Physician Cardiology 01/14/19 (Hist), [facility] [address] [facility] [address] [address] Durable Medical Equipment Provider 07/05/19 Shaquille Finley MD [address] [place] [address] Consulting Anesthesiology 01/20/20 Soheila Bhakta MD [address] [place] [address] Consulting Dermatology 03/10/20 [facility] 06/26/16 Maureen Mccarty 07/12/16 [facility] 10/28/16 [facility] Physician Cardiology 11/14/17 [facility] 11/14/17 [place] 03/03/19 Lou Carlos 01/20/19 Keara Ayers 02/20/17 Title I Paraprofessional Relationship Specialty Start Date End Date Nanda Oliveira MD [address] [place] [address] PCP - General Family Medicine 06/24/16 08/28/23 Daniel Ford MD [address] [facility] [address] [address] [place] [address] Pain Management 11/14/17 Bart Blas MD [address] [place] [address] Physician Cardiology 01/14/19 (Hist), [facility] [address] [place] [address] Durable Medical Equipment Provider 07/05/19 Shaquille Finley MD [address] [place] [address] Consulting Anesthesiology 01/20/20 Soheila Bhakta MD [address] [place] [address] Consulting Dermatology 03/10/20 [facility] 06/26/16 Maureen Mccarty 07/12/16 [facility] 10/28/16 [facility] Physician Cardiology 11/14/17 [facility] 11/14/17 [place] 03/03/19 Lou Gonzalez 01/20/19 Keara Ayers 02/20/17 Title I Paraprofessional Relationship Specialty Start Date End Date Nanda Oliveira MD [address] [place], [place] [address]281 PCP - General Family Medicine 06/24/16 08/28/23 Daniel Ford MD [address] [facility] 3 [place] [address] Pain Management 11/14/17 Bart Blas MD [address] [address] Physician Cardiology 01/14/19 (Hist), [facility] [address] [address] Durable Medical Equipment Provider 07/05/19 Shaquille Finley MD [address] [place] [address] Consulting Anesthesiology 01/20/20 Soheila Bhakta MD [address] [place] [address] Consulting Dermatology 03/10/20 [facility] 06/26/16 Maureen Mccarty 07/12/16 [facility] 10/28/16 [facility] Physician Cardiology 11/14/17 [facility] 11/14/17 [place] 03/03/19 Lou Gonzalez 01/20/19 Keara [...] 04, 2024 End: November 04, 2024 Dr. Batr Blas MD Attending Provider Active S tart: [...] 03, 2025 End: January 03, 2025 Lizette Wyatt , AUTOMATIC PROFILE SANDER OPERATOR-C Attending Provider Active Start: January 03, 2025 End: January 03, 2025 Team Status: Inactive Member Role/Relationship Status Dates Dr. Dylon Murrieta MD Primary Care Provider Active Start: March 23, 2025 End: March 23, 2025 Lizette Schneider AUTOMATIC PROFILE SANDER OPERATOR-C Attending Provider Active Start: March 23, 2025 End: March 23, 2025 Lizette Schneider AUTOMATIC PROFILE SANDER OPERATOR-C Referring Provider Active Start: March 23, 2025 End: March 23, 2025 Team Status: Inactive Member Role/Relationship Status Dates Dr. Dylon Murrieta MD Primary Care Provider Active Start: January 03, 2025 End: January 03, 2025 Dr. Dylon Murrieta MD Referring Provider Active Start: January 03, 2025 End: January 03, 2025 Lizette Schneider AUTOMATIC PROFILE SANDER OPERATOR-C Attending Provider Active Start: January 03, 2025 End: January 03, 2025 Team Status: Inactive Member Role/Relationship Status Dates Dr. Dylon Murrieta MD Primary Care Provider Active Start: March 23, 2025 End: March 23, 2025 Lizette Schneider AUTOMATIC PROFILE SANDER OPERATOR-C Attending Provider Active Start: March 23, 2025 End: March 23, 2025 Lizette Schneider AUTOMATIC PROFILE SANDER OPERATOR-C Referring Provider Active Start: March 23, 2025 [...] 2025 End: March 23, 2025 Lizette Schneider AUTOMATIC PROFILE SANDER OPERATOR-C Referring Provider Active Start: March 23, 2025 [...] 19, 2025 Dr. Avinash Hodge MD Emergency Departmen t Physician Active Start: June 19, 2025 End: June 19, 2025 Care Team (unrecognized sect ion and content) Care Team Personnel Name: NANDA OLIVEIRA MD Member Role: Primary Care Physician Address: Address: [address] [place] [address] Care Team Related Persons Name: MAE KRAUS Name: MAE KRAUS Name: MAE KRAUS Name: [...] BE BASED ON THE PRIMARY CLINICAL RECORDS. [employer] provides no warranty or guarantee of the accuracy or completeness of information in this document.
[2025-08-10 00:29] LABS: Xtra Tube Kwok EXTRA TUBE
== END | disposition home or self-care (01) ==
PROVIDERS: PCP Family Medicine Geriatric Medicine; Referring Provider Family Medicine Geriatric Medicine; Visit Provider Family Medicine Geriatric Medicine
DX: I10 Essential (primary) hypertension (principal)
CPT/HCPCS: 36415; 73110; 73552; 80048; 84550; 85025; 85652; 86140